=== PATIENT | female | born 1950 | race Caucasian/White ===

== ENCOUNTER 2016-06-28 09:22 | Inpatient (IN) | payer MEDICARE ==
[~2016-06-28] VITALS: Ht 157.5 cm; Wt 109.3 kg
[~2016-06-28 09:22] MED LIST: ACYC800T PO; ALPR.5T PO; ALPR0.2550 PO; ALPR0.5T7 PO; ALPR0.5T72 PO; AMT50T; APIX5TAB PO; ARFO15VI3 IH; ARFO15VI3 NEB; ASP81TEC PO; ASPI-875 PO; ATOR40TA PO; ATR20T PO; AZIT-21 PO; AZIT500T PO; BUDE0.5A NEB; CETI10TA17 PO; CLIMARA PATCH; CODE118S2 PO; COLE1TAB PO; COLE625T9 PO; COLESTIPOL; CPR500T PO; CYCL10TA9 PO; DILT120C54 PO; DILT180C54 PO; DILT180C55 PO; DILT240C PO; DILT240C47 PO; DILT240C54 PO; DILT240C9 PO; DILT240T6 PO; DRON400T2 PO; ESOM20SU PO; ESTR-17 PO; ESTR1PAT63 TD; ESTR1TAB22 PO; FEXO180T PO; FEXO1TAB49; FEXO30TA17 PO; FLC100T1; FLEC100T PO; FLEC50TA PO; FLUC150T2 PO; FLUT16SP22 NS; FLUT16SP22 NSEACH; FURO-125 PO; FURO20TA4 PO; GABA300C PO; GABA400T PO; GABA600T2 PO; GBPN100C PO; GBPN600T PO; HCT25T; HORMONE PILL PO; HYDR-2941 PO; HYDR-34 PO; HYDR-3714 PO; HYDR-3816 PO; HYDR1CAP2 PO; HYDR1TAB71 PO; HYDR28.341 TOP; HYDROCODONE; INSU100V5 SQ; IPRA3AMP NEB; IPRA4AER INH; LASIX; LEVA1.2516 INH; LEVO500T2 PO; LEVO500T80 PO; LEVO5TAB2 PO; LEVO750T6 PO; LEVO75TA6 PO; LEVO88TA54 PO; LIRA0.6P SQ; LISI1TAB PO; LISI1TAB10 PO; LORA0.5T PO; LORA10TA7 PO; LRZ.5TRX; LVT.025T PO; METFOR850T PO; METO-274 PO; METO100T5 PO; METO50TA7 PO; MNTL10T; MONT10TA24 PO; MTP25TSR PO; MUPI15CR11 TP; NAPR1TAB21 PO; NEBI5TAB8 PO; NF-ESOM40C; NF-METHYLP PO; NYST1000 MM; OMEP20CA12 PO; OMEP20TA2 PO; ONDA8TAB6 PO; ONDN4T PO; OXYC-12 PO; PANT40TA2 PO; PANT40TA3 PO; PNT40TEC PO; POTA10CA43 PO; POTA10TA10 PO; POTASSIUM PO; PRCD5U PO; PRD10T PO; PRD50T PO; PREG50C PO; PRM25T PO; PROM25TA14 PO; RABE20TA PO; ROPI0.5T2 PO; ROPI1TAB PO; ROPI1TAB2 PO; ROPI1TAB40 PO; ROPI2TAB4 PO; RT-ALBUINH INH; SAXA5TAB PO; SUCR1TAB PO; TIOT18CA2 IH; TRZ100T PO; VENL-48 PO; VENL150C PO; VENL150T4 PO; VNL37.5T PO; [UNRECOGNIZED DRUG - CODE] PO; [UNRECOGNIZED DRUG - CODE] PO
--- OUTSIDE RECORDS SUMMARY | 2016-06-28 09:28 | XMS REPORT | Continuity of Care Document ---
Author Author [facility] Organization [facility] Address Unknown Phone Unavailable Care Team Providers Care Suggestion Clerk Name Role Phone Ashley Motta PCP [phone] Source Comments Some departments are not documenting in the electronic medical record. If you do not see the information that you expected, contact Release of Information in the Health Information Management department at [phone] for further assistance in locating additional records.[facility] Active Allergies and Adverse Reactions Allergen Noted Date Severity Reactions Comments Codeine 02/16/2016 Low SEE COMMENTS Loopy, sleepy Pcn 02/16/2016 High ANAPHYLAXIS Sulfa (Sulfonamide 02/16/2016 Medium HIVES Antibiotics) Tetanus And Diphtheria 02/16/2016 Medium FEVER, SEE COMMENTS, Body stiffness Toxoids, Adsorbed, Adult EDEMA Current Medications Prescription Sig. Disp. Refills Start End Date Status Date ALPRAZolam (XANAX) 0.5 mg Take 0.5 mg by mouth Active tablet three times daily as needed for Anxiety. apixaban (ELIQUIS) 5 mg Take 5 mg by mouth twice Active tablet daily. aspirin EC 81 mg tablet Take 81 mg by mouth at Active bedtime daily. Take with food. budesonide respule Inhale 0.5 mg solution by Active (PULMICORT) 0.5 mg/2 mL nebulizer as directed as nebulizer solution Needed. colesevelam(+) (WELCHOL) Take 1,875 mg by mouth Active 625 mg tablet twice daily with meals. colestipol (COLESTID) 1 Take 1 g by mouth twice Active gram tablet daily. cyclobenzaprine Take 10 mg by mouth twice Active (FLEXERIL) 10 mg tablet daily as needed. fexofenadine(+) (LEEANN) Take 180 mg by mouth Active 180 mg tablet daily. furosemide (LASIX) 20 mg Take 40 mg by mouth twice Active tablet daily. Take 2 tabs gabapentin enacarbil 600 Take 900 mg by mouth Active mg TbER three times daily. Take 1 and 1/2 tabs HYDROCORTISONE TP Apply topically to Active affected area three times daily. levothyroxine (SYNTHROID) Take 88 mcg by mouth Active 88 mcg tablet daily 30 minutes before breakfast. montelukast (SINGULAIR) Take 10 mg by mouth at Active 10 mg tablet bedtime daily. nystatin (MYCOSTATIN) Apply topically to Active 100,000 unit/g topical affected area as Needed. cream pantoprazole DR Take 40 mg by mouth Active (PROTONIX) 40 mg tablet daily. From 04/05/16 - 05/23/16 take twice daily. Resume daily dose 05/24/16 potassium chloride Take 10 mEq by mouth Active (K-DUR) 10 mEq tablet daily. Take with a meal and a full glass of water. rOPINIRole (REQUIP) 1 mg Take 1 mg by mouth at Active tablet bedtime daily. albuterol (PROAIR HFA) 90 Inhale 2 Puffs by mouth Active mcg/actuation inhaler into the lungs every 4 hours as needed for Wheezing or Shortness of Breath. Shake well before use. albuterol 0.5% Inhale 2.5 mg solution by Active (PROVENTIL; VENTOLIN) 2.5 nebulizer as directed mg/0.5 mL nebulizer twice daily as needed for solution Shortness of Breath or Wheezing. DULOXETINE HCL (CYMBALTA Take 1 Cap by mouth Active PO) daily. insulin detemir(+) Inject 25 Units under the Active (LEVEMIR) 100 unit/mL skin twice daily. 25 soln units in the am and 20units in the pm Indications: 20 units at bedtime HYDROcodone/acetaminophen Take 1 Tab by mouth every Active (+) (NORCO) 10/325 mg 6 hours as needed for tablet Pain fluticasone (FLONASE) 50 Apply 1 [place] to each Active mcg/actuation nasal spray nostril as directed daily. Shake bottle gently before using. metoprolol XL (TOPROL XL) Take 1 Tab by mouth 90 Tab 3 04/23/20 Active 100 mg extended release daily. 16 tablet diltiazem CD (CARDIZEM Take 1 Cap by mouth 90 Cap 3 04/23/20 Active CD) 240 mg capsule daily. 16 sucralfate (CARAFATE) 1 Take 1 Tab by mouth every 360 Tab 3 05/05/20 Active gram tablet 6 hours. Take on an empty 16 stomach. flecainide (TAMBOCOR) 100 Take 1 Tab by mouth twice 60 Tab 11 Active mg tablet daily. 16 digoxin (LANOXIN) 125 mcg Take 1 Tab by mouth 30 Tab 11 05/11/20 Active tablet daily. 16 Active Problems Problem Noted Date S/P radiofrequency ablation operation for arrhythmia 05/05/2016 Atrial fibrillation (HCC) 03/17/2016 Overview: 01/17/16 - Echo: EF 50%. LV normal in size, endocardium was not well visualized in all segments. LA is normal in size, no clot or thrombus were seen. Mild MR, Mild TR. Pulmonary HTN with PAP 45mmHg. 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 Most Recent Encounters Date Type Specialty Providers Description 06/27/2016 Telephone Cardiology Sushma Treadwell RN Other - cta requested 2016 Telephone Cardiology Aleja Jackson RN Other - post ablation cta ordered 2016 Orders Only Cardiology Aleja Jackson RN Atrial fibrillation , unspecified type (Primary Dx); S/P radiofrequency ablation operation for arrhythmia 06/21/2016 [facility] Cardiology Manish Lr MD Arrived Encounter 05/17/2016 [facility] Cardiology Manish Lr MD Encounter 05/11/2016 Office Visit Cardiology Zoë Bryan MD Atrial fibrillation - afib/chest tightness/jaw pain/arm pain/heartburn 05/09/2016 Telephone Cardiology Gamal Cervantes RN Irregular Heart Beat - numbness, slurred speech, gait difficult over the weekend; Tingling - & numbness 05/06/2016 Hospital Cardiology Manish Lr MD Encounter 05/06/2016 Orders Only Cardiology Caitlyn Doherty Ashley S/P radiofrequency ablation operation for arrhythmia (Primary Dx) 05/05/2016 Hospital Radiology Manish Lr MD Encounter 05/05/2016 Office Visit Cardiology Manish Lr MD Cardiac Eval - post cryo ablation follow up; paroxysmal AFIB 05/05/2016 Hospital Cardiology Manish Lr MD Encounter 05/05/2016 Ancillary Cardiology Manish Lr MD Gastroesophageal reflux Orders disease without esophagitis (Primary Dx) 05/05/2016 Screening Form 05/05/2016 Documentation Cardiology Romy Ramírez - LINQ 05/05/2016 Ancillary Cardiology Manish Lr MD Paroxysmal atrial Orders fibrillation (HCC) (Primary Dx) 04/29/2016 Orders Only Cardiology Marii Mac 04/29/2016 Telephone Cardiology Sabi Yost RN Follow-up Phone Call - 1 week post cryoablation AF 04/22/2016 Hospital Cardiology Manish Lr MD No Show Encounter 04/22/2016 Surgery Cardiology Manish Lr MD Left Atrial Fibrillation Cryo Ablation 04/21/2016 Telephone Cardiology Yu Boyer RN Provider Discussion About Patient 04/21/2016 Pre-Admit Cardiology Kriss Emanuel, [employer]ER [employer] Orders Only 04/20/2016 Documentation Cardiology Sabi Yost RN Lab Results - updated CBC, WBC WNL 04/20/2016 Telephone Cardiology Vy Ribeiro RN Follow Up - Needs CBC re-draw 04/18/2016 Telephone Cardiology Gauri Wynne LPN Medication Question - Lovenox inj 04/12/2016 PAC Office Anesthesiology Manish Lr MD Atrial fibrillation, Visit unspecified type (HCC); Pre-procedural cardiovascular examination 04/12/2016 Hospital Radiology Manish Lr MD Encounter 04/12/2016 Hospital Cardiology Manish Lr MD Encounter 04/12/2016 Office Visit Cardiology Manish Lr MD Cardiac Eval - H&P Cryo Ablation 04/12/2016 Hospital Cardiology Manish Lr MD Encounter 04/12/2016 Anesthesia Cardiology Dorcas Vazquez, [employer] Event 04/04/2016 [facility] Cardiology Sushma Treadwell RN Pre-Admission Checklist 03/31/2016 Orders Only Cardiology Marii Mac Atrial fibrillation, unspecified type (HCC) (Primary Dx) Social History Tobacco Use Types Packs/Day Years Used Date Never Smoker Smokeless Tobacco: Never Used Alcohol Use Drinks/Week oz/Week Comments No Last Filed Vital Signs Vital Sign Reading Time Taken Blood Pressure 120/74 05/11/2016 10:59 AM CREDIT RESOLUTION REPRESENTATIVE Pulse 98 05/11/2016 10:57 AM CREDIT RESOLUTION REPRESENTATIVE Temperature 36.4 C (97.5 F) 04/23/2016 3:13 AM CREDIT RESOLUTION REPRESENTATIVE Respiratory Rate - - Height 1.575 m (5' 2") 05/11/2016 10:57 AM CREDIT RESOLUTION REPRESENTATIVE Weight 103.874 kg (229 lb) 05/11/2016 10:57 AM CREDIT RESOLUTION REPRESENTATIVE Body Mass Index 41.87 05/11/2016 10:57 AM CREDIT RESOLUTION REPRESENTATIVE Oxygen Saturation 98% 05/05/2016 10:14 AM CREDIT RESOLUTION REPRESENTATIVE Plan of Care Date Type Specialty Providers Description 07/19/2016 Appointment Cardiology Zoë Bryan MD [address] [place] [address] [phone] (Fax) E Manish noble MD [address] [place] [address] [phone] (Fax) Health Maintenance Due Date Last Done Comments Hepatitis C Screening 1950 Physical (Comprehensive) 1957 Exam Pertussis Vaccine 1961 Tetanus Vaccine 1967 Dilated Eye Exam 1968 Foot Exam 1968 Hba1c 1968 Microalbumin 1968 Breast Cancer Screening 1990 Colorectal Cancer 2000 Screening Shingles Vaccine 2010 Osteoporosis Screening 2015 Prevnar/Pneumovax (#1) 2015 Influenza Vaccine 01/21/2016 Procedures from Last 3 Months Procedure Name Priority Date/Time Associated Diagnosis Comments ECG-SCAN 04/29/2016 Results for this 7:56 AM CREDIT RESOLUTION REPRESENTATIVE procedure are in the results section. ECG-SCAN 04/28/2016 Results for this 1:49 PM CREDIT RESOLUTION REPRESENTATIVE procedure are in the results section. TELEMETRY STRIPS-SCAN 04/26/2016 Results for this 7:48 AM CREDIT RESOLUTION REPRESENTATIVE procedure are in the results section. PROCEDURES-SCAN 04/24/2016 Results for this 7:01 PM CREDIT RESOLUTION REPRESENTATIVE procedure are in the results section. Results from Last 3 Months DEVICE EVALUATION - REMOTE ILR (06/21/2016 3:01 PM)Only the most recent of 3 results within the time period is included. Component Value Range Generator Implnat Date 04/08/15 Generator Model # Reveal Linq [id number] Device Implanted By Dr. Dyer Generator Serial # [id number] EP Device Followed by MPE Name ILR Symptom Duration 4 7.5 mins each ILR Tachy Rate 167 ILR Tachy Duration 16 ILR Pause Duration 3 ILR Chris Rate 30 ILR Chris Duration 8 ILR AT Events Since Last 0 Interrogation ILR AT Lifetime Events as 0 of Generator Mailroom Associate Medtronic Wireless Generator Yes Device Type ILR EP Device Followed By Other ILR AF Rate AF only ILR AF Duration episodes > 10 mins Device [place] Carelink Express Transmitter Compatible ILR Current Monitoring 06/21/2016-07/21/2016 Period ILR Date of Last Daily 06/20/2016 Connection ILR Lifetime Events as of 06/20/2016 Datetion ILR Symptom Events Since 0 Last Interrogation ILR Symptom Lifetime 8 Events as of ILR Tachy Events Since 0 Last Interrogation ILR Tachy Lifetime Events 7 as of ILR Pause Events Since 0 Last Interrogation ILR Pause Lifetime Events 30 as of ILR Chris Events Since 0 Last Interrogation ILR Chris Lifetime Events 0 as of ILR AF Events Since Last 0 Interrogation ILR AF Lifetime Events as 270 of ILR Percent Time in AT/AF 0 Events Since Last Interrogation ILR Percent Time in AT/AF 5.5% Lifetime of Events as of ILR Battery Status OK ILR Presenting ECG Strip 06/20/2016 @ 22:59 SR in the 70's Narrative [06/21/2016 3:03:05 PM - ED THOMAS] Reviewed summary report.No events received. Will continue to monitor.Routed to Dr. Lr for review and co-sign. CT CHEST WO/W CONTRAST (05/05/2016 2:12 PM) Impressions 1.No evidence for esophageal or left atrial injury. 2.Mild cardiomegaly with at least mild coronary artery calcification. 3.Scattered tiny pulmonary nodules which most likely represent small scars or granulomas. If there are no significant risk factors for pulmonary malignancy , no follow-up is required. 4.Mild air trapping suggesting small airways disease. 5.Moderate fatty infiltration of the liver. Approved by Shelby Jackman M.D. on 05/05/2016 3:53 PM By my electronic signature, I attest that I have personally reviewed the images for this examination and formulated the interpretations and opinions expressed in this report Finalized by Jamie Crespo M.D. on 05/05/2016 3:58 PM. Dictated by Shelby Jackman M.D. on 05/05/2016 3:[address] CHEST Clinical Indication:Female, 65 years old. Gastroesophageal reflux disease without esophagitis. Status post left atrial ablation. Technique: Multiple contiguous axial CT images were obtained through the chest following the administration of IV contrast.The patient drank a 7.5 mL dilute Gastrografin during the study.Post processing coronal and sagittal reconstruction images were made from the axial images. IV contrast: Isovue-370 Comparison: None FINDINGS: Lower Neck: Unremarkable Axilla, Mediastinum and Marco: The esophagus is well distended with oral contrast. No evidence for contrast extravasation or mediastinal fluid collection. No thoracic lymphadenopathy. Heart and Great Vessels: Mild cardiomegaly without a pericardial effusion. The posterior wall of the left atrium is normal in contour without evidence of extravasation of IV contrast. Mild coronary artery calcifications. Normal caliber thoracic aorta. Airway, Lungs and Pleura: Mild dependent atelectasis or fibrosis. A small right lower lobe pulmonary nodule measures 0.4 cm on image 3/30. Other tiny nodules are seen bilaterally such as in the right lung on image 21 and the left lung on images 18, 21, 28 and 30 of series 3, for example. There is poor depth of inspiration with bilateral areas of atelectasis and small areas of air trapping. Upper Abdomen: Moderate hepatic steatosis. Prior cholecystectomy. Chest Wall and Osseous Structures: Unremarkable. Procedure Note Interface, Radiant Results - Divine May 05, 2016 4:01 PM CREDIT RESOLUTION REPRESENTATIVE CT CHEST Clinical Indication: Female, 65 years old. Gastroesophageal reflux disease without esophagitis. Status post left atrial ablation. Technique: Multiple contiguous axial CT images were obtained through the chest following the administration of IV contrast.The patient drank a 7.5 mL dilute Gastrografin during the study.Post processing coronal and sagittal reconstruction images were made from the axial images. IV contrast: Isovue-370 Comparison: None FINDINGS: Lower Neck: Unremarkable Axilla, Mediastinum and Marco: The esophagus is well distended with oral contrast. No evidence for contrast extravasation or mediastinal fluid collection. No thoracic lymphadenopathy. Heart and Great Vessels: Mild cardiomegaly without a pericardial effusion. The posterior wall of the left atrium is normal in contour without evidence of extravasation of IV contrast. Mild coronary artery calcifications. Normal caliber thoracic aorta. Airway, Lungs and Pleura: Mild dependent atelectasis or fibrosis. A small right lower lobe pulmonary nodule measures 0.4 cm on image 3/30. Other tiny nodules are seen bilaterally such as in the right lung on image 21 and the left lung on images 18, 21, 28 and 30 of series 3, for example. There is poor depth of inspiration with bilateral areas of atelectasis and small areas of air trapping. Upper Abdomen: Moderate hepatic steatosis. Prior cholecystectomy. Chest Wall and Osseous Structures: Unremarkable. IMPRESSION 1. No evidence for esophageal or left atrial injury. 2. Mild cardiomegaly with at least mild coronary artery calcification. 3. Scattered tiny pulmonary nodules which most likely represent small scars or granulomas. If there are no significant risk factors for pulmonary malignancy , no follow-up is required. 4. Mild air trapping suggesting small airways disease. 5. Moderate fatty infiltration of the liver. Approved by Shelby Jackman M.D. on 05/05/2016 3:53 PM By my electronic signature, I attest that I have personally reviewed the images for this examination and formulated the interpretations and opinions expressed in this report Finalized by Jamie Crespo M.D. on 05/05/2016 3:58 PM. Dictated by Shelby Jackman M.D. on 05/05/2016 3:13 PM. DEVICE EVALUATION - ILR (05/05/2016 11:10 AM)Only the most recent of 2 results within the time period is included. Component Value Range Generator Implnat Date 04/08/15 Generator Model # Reveal Linq [id number] Device Implanted By Dr. Dyer Generator Serial # [id number] EP Device Followed by MPE Name ILR Symptom Duration 4 7.5 mins each ILR Tachy Rate 167 ILR Tachy Duration 16 ILR Pause Duration 3 ILR Chris Rate 30 ILR Chris Duration 8 ILR AT Events Since Last n/a Interrogation ILR AT Lifetime Events as 0 of Generator Mailroom Associate Medtronic Wireless Generator Yes Device Type ILR EP Device Followed By Other ILR AF Rate AF only ILR AF Duration episodes > 10 mins Device [place] Carelink Express Transmitter Compatible ILR Lifetime Events as of 05/05/16 Datetion ILR Symptom Lifetime 0 Events as of ILR Tachy Lifetime Events 0 as of ILR Pause Lifetime Events 1 (during ablation as of ILR Chris Lifetime Events 0 as of ILR AF Lifetime Events as 1 of ILR Percent Time in AT/AF 0.2% Lifetime of Events as of Narrative Medtronic Linq ILR interrogation.Pt has been following with Dr. Dyer in [facility], [place].Pt was never given a symptom activator.We gave her one today and Dr. Lr has requested remote transfer to us. This was done on website by Romy álvarez. No events since AF ablation on 04/22/16. Presenting rhythm today NSR 82bpm. Report to Dr. Lr in clinic. [05/05/2016 5:40:11 PM - JESSE PATEL] ECG-SCAN (04/29/2016 7:56 AM) Narrative Ordered by an unspecified provider. ECG-SCAN (04/28/2016 1:49 PM) Narrative Ordered by an unspecified provider. TELEMETRY STRIPS-SCAN (04/26/2016 7:48 AM) Narrative Ordered by an unspecified provider. PROCEDURES-SCAN (04/24/2016 7:01 PM) Narrative Ordered by an unspecified provider. EP STUDY (04/23/2016 12:30 PM) Impressions : -NSR existed at baseline and she went into an Atypical AFL and some degeneration to AFIB.This terminated with as the 3rd PV was isolated-->the RIPV -Status post Cryo-Balloon Ablation of AFIB -Paroxysmal Atrial fibrillation status post pulmonary vein antral isolation. -Successful ablation of LA to isolate pulmonary veins. Normal AV node function. Normal His-Purkinje system function. -Procedure done under general anesthesia. PLAN: -Patient will be monitored overnight in the hospital with access sites checked in the morning. -Will restart home antiarrhythmic drug for the next two to three months. -Pt. 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 HOWEVER, she has had periods of sinus pauses/ASYSTOLE and during the procedure with no provocation, except anesthesia, she had prolonged periods of asystole. THEREFORE, At VT, all doses will be decreased by 1/2 HYDROGEN POWER PLANT ENGINEER dosing: -Flecainide 50 mg BID (but can go back to 100 mg BID if needed in future, since level was OK at that dose). -Toprol XL 100 mg Daily -Diltiazem 240 mg Daily NOTE--if she has recurrent AFIB with RVR then would increase Diltiazem back to 480 mg and no other changes. If she still has AFIB with RVR after all AFIB Ablations, etc. Then may need PPM but if AFIB after 3 mos is Cured, then anticipate being able to stop or dramatically lower Rate controlling meds, thus avoiding a PPM. Narrative AFIB ABLATION WITH CRYO ENERGY Patient Name: Monae Boyce DATE OF PROCEDURE: 04/24/2016 PROCEDURE: Intracardiac Ablation of Atrial Fibrillation through pulmonary vein antral isolation in the left atrium with a [employer] [place] Cryo-Balloon Left atrial antral ablation for atrial fibrillation General Anesthesia EP study with CS catheter placement His bundle assessment Right and left heart catheterization Intracardiac echocardiography Single transseptal puncture with LA entry Pulmonary vein angiography Three-dimensional intracardiac electroanatomic mapping using the Kranem NAvX System. Intracardiac left atrial ablation of atrial fibrillation for pulmonary vein antral isolation Complex fractionated atrial electrogram ablation IV drug Administration - Isuprel BRAKE LINING FINISHER: Manish Lr MD FELLOW: none INDICATION FOR PROCEDURE: Symptomatic paroxysmal atrial fibrillation PRESENTING RHYTHM: NORMAL SINUS RHYTHMbut Spontaneously, Without significant stimulus i.e. catheter induction, the patient went into an atypical left-sided AFL/AFIB. CONSENT: The risks, benefits, indications and alternatives to the procedure were explained in detail with the patient and discussed at length prior to the procedure. The patient expressed understanding of the risks and consented to the procedure. All questions asked were answered and all permits were signed. The patient was transported to the Electrophysiology Laboratory in a non-sedated state and was placed supine on the fluoroscopy table. GENERAL ANESTHESIA: The patient underwent general anesthesia as administered by a Anesthesia servce. He was on mechanical ventilation which was managed by anesthesia team who was present through out the procedure. Continuous blood pressure, heart rate and O2 saturation monitoring with supplemental oxygen as needed was utilized throughout the procedure. LOCAL ANESTHESIA: Marcaine 0.25% was injected into subcutaneous tissue for local anesthesia. ANTICOAGULATION: Heparin bolus was given following transseptal puncture and a drip was started to maintain ACT > 400 throughout the procedure. Protamine was given at the completion of the procedure for reversal of heparin anticoagulation. ANATOMY: The left atrial anatomy correlated well with the cardiac CT. CATHETERS USED: - An 11Fr. SL1 sheath was exchanged for a short 8 Fr. Sheath in the RFV and then for the Flex Cryo-balloon deflectable sheath - A 20 pole Variable Lasso was used and inserted thru the Flex Cryo-balloon Sheath in the RFV in exchanged for the Cryo-balloon catheter at the end of the procedure to confirm PV isolation. - The Cryo-Balloon catheter was advanced into the LA for ablation thru the deflectable sheath in the RFV.20 mm Achieve lasso Catheter was introduced through the Flex sheath - Decapolar deflectable EP catheter inserted via a 6Fr Tunisian sheath in the left femoral vein, advanced to the coronary sinus. - Accunav or SJM ICE catheter placed via access with an 11 Tunisian sheath in the left femoral vein and advanced into right atrium to assess cardiac anatomy. - A 6 Fr. Fixed QuadrapolarCatheter was advanced thru a short sheath in the LFV and used for Temporary RVA pacing as needed and then advanced to the Right SCV to pace stimulate the phrenic nerve with all Rt. Sided Ablation applications. -NOTE--Difficult CS Access. ACCESS: The left and right groins and right neck were prepped and draped in a sterile fashion. 0.25% Marcaine was injected into the subcutaneous tissue overlying the right and left femoral veins, and right internal jugular vein. The veins were accessed using the modified Seldinger technique with placement of sheaths and catheters as mentioned above. -ASYSTOLE occurred before procedure was even underway with only one catheter in the RA not near Sinus node.The Catheter, was the CS catheter. The catheter was quickly advanced in the RV to pace. Asystole was transient. But it recurred. Therefore a quadripolar catheter was advanced into the RV apex. Pacing threshold was tablets. Backup pacing at 40 ppm was [address] in [address] with a temporary pacemaker box in the event that she had continued episodes of asystole. INTRACARDIAC ECHO: A 9 Tunisian ICEcatheter was advanced via left femoral vein to mid right atrium to assess cardiac anatomy and to guide transseptal puncture. There was no pericardial effusion or thrombus. The left atrium was mildly enlarged. Intracardiac echo was used to assist and guide transseptal puncture. SINGLE TRANSSEPTAL PUNCTURE WITH LA ENTRY: A short 8 [place]ian sheath in the right femoral vein was exchanged for a long SL1 sheath. A transseptal needle was used for transseptal puncture. The transseptal puncture was done using a SL1 sheath in the inferoanterior aspect of the interatrial septum. The septum was lipomatous and seeing the fossa was not as clear as usual.Therefore ~ 3 passess with the needle were done before angled to 0600, good tenting, etc. Was noted and then the needle easily penetrated the fossa to the LA. Transseptal puncture was performed in the low septum successfully under guidance of fluoroscopy and intracardiac echo. Contrast was injected immediately after puncture to confirm appropriate LA location before advancing the sheath. Heparin IV bolus was started immediately to keep ACT 400 or greater throughout left atrial ablation. (Intra-atrial pressure was 24/9 mmHg) THREE-DIMENSIONAL INTRACARDIAC ELECTROANATOMIC MAPPING: Using the 20 pole Achieve Lasso catheter 3-D electroanatomic mapping of the left atrium and pulmonary veins was created. Post RFA the Variable Lasso catheter was used. The left atrial anatomy correlated well with the cardiac CT. -ENTRAINMENT MAPPING when the pt was in the atypical AFL/AFIB was done from the LLRA and PCS and entrainment mapping supported a LEFT-SIDED circuit. CRYOABLATION: The 4 veins were sequentially entered using the Achieve lasso catheter, and the balloon was advanced into each of the veins. Using the 3-D electro-anatomic map and the Doppler window on the ICE catheter, an appropriate occlusion of the vein was judged.The balloon was dilated and an occlusive venogram of each vein was done to confirm that there was no leak.The balloon was adjusted to minimize any leak around the balloon. An initial freeze for was done, and at lease one subsequent freeze was done on each vein.The goal freezing temperature would be less than 40 degrees. The transseptal puncture was done using a SL1 sheath in the inferoanterior aspect of the interatrial septum. The septum was lipomatous and seeing the fossa was not as clear as usual.Therefore ~ 3 passess with the needle were done before angled to 0600, good tenting, etc. Was noted and then the needle easily penetrated the fossa to the LA. The sheath was then exchanged over to the 15-Tunisian FlexCath sheath.The groin access site was dilated using the 14-Tunisian dilator before introducing the sheath as well.With the long wire parked in the left upper vein, the FlexCath sheath was introduced into the left atrium. Using the Achieve Lasso, we demarcated the different Pulmonary Veins under NavX 3D guidance mapping and merged to the CT. She had a 2 SEPARATE LEFT PVs--a LSPV and A LIPV AND 2 SEPARATE RIGHT PVs--a RSPV AND RIPV. NSR existed at baseline and she went into an Atypical AFL and some degeneration to AFIB.This terminated with as the 3rd PV was isolated-->the RIPV The cryo balloon was sequentially applied at the pulmonary vein ostia. For each PV Cryo-balloon application, the position of the balloon was also confirmed with the ICE catheter.The ICE catheter was panned across the vein to make sure there was no leak across through the sides of the balloon.Also, puffs of contrast/venogram of the vein was done to demonstrate PV os occlusion. If there was a leak, or there was a suspicion of inadequate occlusion, adjustment of the balloon was done to cover the leaked segment and repeat treatment was done.This strategy was followed at all the Pulmonary Veins. We started with the Left PVs, followed by the Right inferior PV and finally the Right Superior PV. After positioning the Achieve Lasso inside the vein, the balloon was pushed onto the antrum and was inflated.Proper occlusion of the vein was done and an angiogram using injection of dye from the distal port was done to verify appropriate occlusion of the vein.Once it was confirmed that the vein was adequately occluded, we sometimes also did pull back the balloon just a bit to make sure we were not too much inside the vein and was appropriately at the antrum. Treatment in the form of cryoablation using liquid nitrogen with freezing of the balloon at a target of -40 to 55 degrees Celsius was done. Applications are described below. During Cryo energy delivery to the Right-sided veins the phrenic nerve was stimulated by pacing and diaphragmatic stimulation was monitored thru the entire application to ensure no diaphragmatic paralysis occurred, i.e. Phrenic nerve injury. CRYO Applications: [id number] Regarding the LSPV, there were potentials initially thought to possibly be far-field from the LENCHO.So we then went to the LIPV and after cryo applications, we noted a far-filled "A" and "V" followed by a sharp signal.It being so "late" it seemed unlikely to be a PV potential. We then isolated the Right-sided veins and went back to the LIPV. Additional Cryo-applications to the LIPV, however, resulted in loss of that late potential. We then turned back to the LSPV and with additional applications again potentials were changed only leaving far-field signals. After the isolation of all the 4 PVs patient was started on Isuprel for 10 minutes at 20mcg/kg/min with no spontaneous ectopic activity. Burst pacing was done at 350 and down to 250 msec without any inducible arrhythmias, flutters, or atrial fibrillation. All 4 veins were active. No inducible arrhythmias with aggressive stimulation and isuprel. ADDITIONAL COMMENTS: --Kranem Navx was used as the mapping system for the procedure. --Transseptal puncture was performed with the access needle pointed to 0600 o'clock--see above. --Dissociated Firing of the PVs:Did not occur. --Vagal Effect:did not occur during RFA. --A CTI ablation for AFL:was NOT performed. --The SVC:Was NOT assessed. --Atrial Scarring: was not present. COMPREHENSIVE EP STUDY WITH CORONARY SINUS CATHETER FINDINGS and PROGRAMMED ELECTRICAL STIMULATION WITH AND WITHOUT ISUPREL: NSR existed at baseline and she went into an Atypical AFL and some degeneration to AFIB.This terminated with as the 3rd PV was isolated-->the RIPV Initial: SR --chris and then Atypical AFL/AFIB with DF=054 ms on average as was VAVB.When in NSR the WA 150 msec,QRS 112 msec, QT 376 msec. Final: SR 630 msec coming off isuprel 20 mcg, WA 147 msec,QRS 107 msec, QT 399 msec. AH 116msec and HV43 msec,at completion of procedure. INTRA ATRIAL AND INTRAVENTRICULAR PACING & ARRHYTHMIA INDUCTION: -We paced the RA/LA and RV for decremental conduction and programmed electrical stimulation with no inducible atrial fibrillation. -AV wenkeback 390ms -AV node function was normal -After the isolation of all the 4 PVs patient was started on Isuprel for 10 minutes at 20mcg/kg/min with no spontaneous ectopic activity. -Atrial burst pacing up to 250 msec from both the atria, did not induce any arrhythmias. POSTABLATION INTRACARDIAC ECHOCARDIOGRAPHY: The ICE catheter was placed at the tricuspid annulus. The cardiac anatomy was assessed. There was no evidence of pericardial effusion. The left ventricular ejection fraction was unchanged. No regional wall motion abnormalities were noted. ACUTE DRUG TESTING: Isuprel was started at 20 mcg/min for acute drug testing. After 10 minutes of infusion, and burst pacing up to 250 ms from CS as well as cj, no additional atrial arrhythmias were noted. The Isuprel was stopped and catheters were pulled back. POST ABLATION INTRACARDIAC ECHOCARDIOGRAPHY: The ICE catheter was placed at the tricuspid annulus. The cardiac anatomy was assessed. There was no evidence of pericardial effusion. The left ventricular ejection fraction was unchanged. No regional wall motion abnormalities were noted. COMPLICATIONS: The patient tolerated the procedure well. No adverse events were noted at the end of the study. The catheters were then removed and the long SL1 sheaths were exchanged for short sheaths. The patient was then given protamine to reverse anticoagulation and was transferred to the outpatient for plans to remove sheaths with manual pressure held until adequate hemostasis noted. IV lasix was given to prevent pulmonary congestion. ASSESSMENT/ POC GLUCOSE (04/23/2016 8:15 AM)Only the most recent of 19 results within the time period is included. Component Value Range Glucose, POC 253 (H) 70-100 MG/DL BASIC METABOLIC PANEL (04/23/2016 3:20 AM)Only the most recent of 2 results within the time period is included. Component Value Range Sodium 137 137-147 MMOL/L Potassium 4.9Comment: SLT HEMOLYSIS 3.5-5.1 MMOL/L Chloride 102 98-110 MMOL/L CO2 28 21-30 MMOL/L Anion Gap 7 3-12 Glucose 218 (H) 70-100 MG/DL Blood Urea Nitrogen 16 7-25 MG/DL Creatinine 0.61 0.4-1.00 MG/DL Calcium 8.7 8.5-10.6 MG/DL eGFR Non >60Comment: >60 mL/min The eGFR is not validated for use in drug dosing adjustments. Continue to use estimated creatinine clearance per dosing reference text. Please contact the Clinical Pharmacist for questions. eGFR >60Comment: >60 mL/min The eGFR is not validated for use in drug dosing adjustments. Continue to use estimated creatinine clearance per dosing reference text. Please contact the Clinical Pharmacist for questions. Specimen Blood CBC (04/23/2016 3:20 AM)Only the most recent of 4 results within the time period is included. Component Value Range White Blood Cells 14.8 (H) 4.5-11.0 K/UL RBC 3.95 (L) 4.0-5.0 M/UL Hemoglobin 10.2 (L) 12.0-15.0 GM/DL Hematocrit 32.4 (L) 36-45 % MCV 82.1 80-100 FL MCH 25.9 (L) 26-34 PG MCHC 31.6 (L) 32.0-36.0 G/DL RDW 16.0 (H) 11-15 % Platelet Count 296 150-400 K/UL MPV 9.0 7-11 FL Specimen Blood PROTIME INR (PT) (04/23/2016 3:20 AM) Component Value Range INR 1.0 0.8-1.2 Specimen Blood POC ACTIVATED CLOTTING TIME (04/22/2016 9:50 PM) Component Value Range Activated Clotting Time 162 s POC ACTIVATED CLOTTING TIME (04/22/2016 5:40 PM)Only the most recent of 10 results within the time period is included. Component Value Range Activated Clotting Time 358 s TRANSESOPHAGEAL ECHOCARDIOGRAM (04/22/2016 1:45 PM) Component Value Range BSA 2.12 m2 ECHO EF 55 % Narrative LV EF 55 % Lipomatous hypertrophy of the interatrial septum No thrombus present in the left atrium or its appendage Mild to moderate TV regurgitation. Plaque present in the transverse aorta and descending aorta. The plaque is small and layered. No prior study is available for comparison. Herrera Harrison MD, MSc UA REFLEX CULTURE LABEL (04/22/2016 1:10 PM) Component Value Range UA Reflex Culture LAB LABEL Specimen Urine URINALYSIS MICROSCOPIC REFLEX TO CULTURE (04/22/2016 1:10 PM) Component Value Range WBCs,UA 0-2 0-2 /HPF RBCs,UA 2-10 0-3 /HPF Comment,UA Urine submitted for reflex culture if criteria are met:WBC>10, positive nitrite and/or positive leukocyte esterase. If quantity is not sufficient, an addendum will follow. MucousUA TRACE Bacteria,UA FEW (A) NEG-NEG Uric Acid Crystals FEW Squamous Epithelial Cells 0-2 0-5 Specimen Urine URINALYSIS DIPSTICK REFLEX TO CULTURE (04/22/2016 1:10 PM) Component Value Range Color,UA YELLOW Turbidity,UA 2+ (A) CLEAR-CLEAR Specific [place]-Urine 1.026 1.003-1.035 pH,UA 5.0 5.0-8.0 Protein,UA 1+ (A) NEG-NEG Glucose,UA 3+ (A) NEG-NEG Ketones,UA TRACE (A) NEG-NEG Bilirubin,UA NEG NEG-NEG Blood,UA 1+ (A) NEG-NEG Urobilinogen,UA NORMAL NORM-NORMAL Nitrite,UA NEG NEG-NEG Leukocytes,UA NEG NEG-NEG Urine Ascorbic Acid, UA NEG NEG-NEG Specimen Urine TYPE & CROSSMATCH (04/22/2016 9:42 AM) Component Value Range Units Ordered 0 Crossmatch Expires 04/25/2016 Record Check FOUND ABO/RH(D) A POS Antibody Screen NEG Electronic Crossmatch YES Specimen Blood POC PT/INR (04/22/2016 9:40 AM) Component Value Range INR POC 1.0 0.8-1.2 TYPE & SCREEN (NOT CROSSMATCH ELIGIBLE) (04/12/2016 3:04 PM) Component Value Range ABO/RH(D) A POS Antibody Screen NEG Blood Component Type RED CELL GROUP Specimen Blood, venous - Blood MAGNESIUM (04/12/2016 3:04 PM) Component Value Range Magnesium 2.1 1.6-2.6 MG/DL Specimen Blood FLECAINIDE LEVEL (04/12/2016 3:04 PM) Component Value Range Flecainide 0.5Comment: Reference range: 0.2 to 1.0 Unit: mcg/mL ADDITIONAL INFORMATION This test was developed and its performance characteristics determined by [facility] in a manner consistent with CLIA requirements. This test has not been cleared or approved by the U.S. Food and Drug Administration. [employer], [address], [place] [address] CARDIAC STRUCTURE WO/W CONT (04/12/2016 1:28 PM) Impressions Cardiac CT: 1. Normal sized left atrium without left atrial appendage thrombus. 2. Normal caliber bilateral superior and inferior pulmonary veins. 3.Moderate lipomatous infiltration of the atrial septum. 4.Normal caliber aortic root and ascending aorta. 5.Mild to moderate mitral annular calcification. Limited CT chest: 1.Moderate to severe hepatic steatosis. 2.Bilateral tiny lower lobe pulmonary nodules which are most likely small granulomas or scars. Finalized by Marbin Law M.D. on 04/13/2016 4:51 PM. Dictated by Marbin Law M.D. on 04/13/2016 4:[address] of the heart with contrast for cardiac structure evaluation and pulmonary vein mapping and limited CT chest Clinical Indication: 65-year-old lady with atrial fibrillation undergoing evaluation for ablation therapy. Technique: Standard [address] of the heart was performed with precontrast scans for localization. Gated dynamic contrast-enhanced scans were performed during bolus contrast administration. Multiplanar reformations and 3 dimensional reformations were performed on a free standing workstation for evaluation of the left atrium and pulmonary veins. Referring physician: Dr. Isabela newsome Interpreting physician:Ani Previous examination:None Findings: 1. Cardiac morphology and structure with attention to the left atrium and pulmonary veins: Left atrium and left atrial appendage: The left atrium isnormal size. The left atrialvolume including the appendage is approximately 57 cc.The atrial septum appears intact. There is no thrombus within the left atrial appendage. Pulmonary veins: There are normal caliber bilateral superior and inferior pulmonary veins. Pulmonary vein ostia measurements: Right superior pulmonary vein: 1.9 x 1.6 cm, 2.50 sq cm area Right inferior pulmonary vein:1.7 x 1.5 cm, 1.91 sq cm area Left inferior pulmonary vein:1.6 x 1.1 cm, 1.46 sq cm area Left superior pulmonary vein:1.6 x 1.1 cm, 1.42 sq cm area General cardiac morphology: No pericardial effusion is identified. The pericardium appears normal in thickness. The aortic and mitral valves are unremarkable apart from mild to moderate annular calcification of the mitral valve..The left ventricular myocardium appears normal in thickness. There is moderate lipomatous infiltration of the atrial septum. Evaluation of the coronary arteries is limited at this examination, however, mild eccentric calcified plaque is noted involving the distal left main coronary artery, LAD and proximal circumflex artery.2. Aorta and pulmonary vessels: The visualized portions of the aorta and pulmonary arteries are unremarkable. The ascending aorta measures about 2.9 cm in diameter.The aortic root measures 3.[address] chest findings: The visualized mediastinum and pulmonary marco are unremarkable. The visualized portions of the lungs are clear apart from mild dependent atelectasis or scarring of the upper lobes.Linear scarring is also noted in the left lower lobe laterally. There are tiny nodular opacities in both lower lobes in the right laterally on image 9/13 and in the left laterally on image 9/16.These both measure about 3 to 4 mm in diameter.There is moderate hepatic steatosis with density measurements of -10 to 5 Hounsfield units. Procedure Note Interface, Radiant Results - MonApr 13, 2016 4:54 PM CREDIT RESOLUTION REPRESENTATIVE CT of the heart with contrast for cardiac structure evaluation and pulmonary vein mapping and limited CT chest Clinical Indication: 65-year-old lady with atrial fibrillation undergoing evaluation for ablation therapy. Technique: Standard [address] of the heart was performed with precontrast scans for localization. Gated dynamic contrast-enhanced scans were performed during bolus contrast administration. Multiplanar reformations and 3 dimensional reformations were performed on a free standing workstation for evaluation of the left atrium and pulmonary veins. Referring physician: Dr. Isabela newsome Interpreting physician:Ani Previous examination:None Findings: 1. Cardiac morphology and structure with attention to the left atrium and pulmonary veins: Left atrium and left atrial appendage: The left atrium is normal size. The left atrial volume including the appendage is approximately 57 cc. The atrial septum appears intact. There is no thrombus within the left atrial appendage. Pulmonary veins: There are normal caliber bilateral superior and inferior pulmonary veins. Pulmonary vein ostia measurements: Right superior pulmonary vein: 1.9 x 1.6 cm, 2.50 sq cm area Right inferior pulmonary vein: 1.7 x 1.5 cm, 1.91 sq cm area Left inferior pulmonary vein: 1.6 x 1.1 cm, 1.46 sq cm area Left superior pulmonary vein: 1.6 x 1.1 cm, 1.42 sq cm area General cardiac morphology: No pericardial effusion is identified. The pericardium appears normal in thickness. The aortic and mitral valves are unremarkable apart from mild to moderate annular calcification of the mitral valve.. The left ventricular myocardium appears normal in thickness. There is moderate lipomatous infiltration of the atrial septum. Evaluation of the coronary arteries is limited at this examination, however, mild eccentric calcified plaque is noted involving the distal left main coronary artery, LAD and proximal circumflex artery. 2. Aorta and pulmonary vessels: The visualized portions of the aorta and pulmonary arteries are unremarkable. The ascending aorta measures about 2.9 cm in diameter. The aortic root measures 3.[address] chest findings: The visualized mediastinum and pulmonary marco are unremarkable. The visualized portions of the lungs are clear apart from mild dependent atelectasis or scarring of the upper lobes. Linear scarring is also noted in the left lower lobe laterally. There are tiny nodular opacities in both lower lobes in the right laterally on image 9/13 and in the left laterally on image 9/16. These both measure about 3 to 4 mm in diameter. There is moderate hepatic steatosis with density measurements of -10 to 5 Hounsfield [address] Card[address]: 1. Normal sized left atrium without left atrial appendage thrombus. 2. Normal caliber bilateral superior and inferior pulmonary veins. 3. Moderate lipomatous infiltration of the atrial septum. 4. Normal caliber aortic root and ascending aorta. 5. Mild to moderate mitral annular calcification. Limited CT chest: 1. Moderate to severe hepatic steatosis. 2. Bilateral tiny lower lobe pulmonary nodules which are most likely small granulomas or scars. Finalized by Marbin Law M.D. on 04/13/2016 4:51 PM. Dictated by Marbin Law M.D. on 04/13/2016 4:[address] LMTD CHEST W CARDIAC (04/12/2016 1:28 PM) Impressions Cardiac CT: 1. Normal sized left atrium without left atrial appendage thrombus. 2. Normal caliber bilateral superior and inferior pulmonary veins. 3.Moderate lipomatous infiltration of the atrial septum. 4.Normal caliber aortic root and ascending aorta. 5.Mild to moderate mitral annular calcification. Limited CT chest: 1.Moderate to severe hepatic steatosis. 2.Bilateral tiny lower lobe pulmonary nodules which are most likely small granulomas or scars. Finalized by Marbin Law M.D. on 04/13/2016 4:51 PM. Dictated by Marbin Law M.D. on 04/13/2016 4:[address] of the heart with contrast for cardiac structure evaluation and pulmonary vein mapping and limited CT chest Clinical Indication: 65-year-old lady with atrial fibrillation undergoing evaluation for ablation therapy. Technique: Standard [address] of the heart was performed with precontrast scans for localization. Gated dynamic contrast-enhanced scans were performed during bolus contrast administration. Multiplanar reformations and 3 dimensional reformations were performed on a free standing workstation for evaluation of the left atrium and pulmonary veins. Referring physician: Dr. Isabela newsome Interpreting physician:Ani Previous examination:None Findings: 1. Cardiac morphology and structure with attention to the left atrium and pulmonary veins: Left atrium and left atrial appendage: The left atrium isnormal size. The left atrialvolume including the appendage is approximately 57 cc.The atrial septum appears intact. There is no thrombus within the left atrial appendage. Pulmonary veins: There are normal caliber bilateral superior and inferior pulmonary veins. Pulmonary vein ostia measurements: Right superior pulmonary vein: 1.9 x 1.6 cm, 2.50 sq cm area Right inferior pulmonary vein:1.7 x 1.5 cm, 1.91 sq cm area Left inferior pulmonary vein:1.6 x 1.1 cm, 1.46 sq cm area Left superior pulmonary vein:1.6 x 1.1 cm, 1.42 sq cm area General cardiac morphology: No pericardial effusion is identified. The pericardium appears normal in thickness. The aortic and mitral valves are unremarkable apart from mild to moderate annular calcification of the mitral valve..The left ventricular myocardium appears normal in thickness. There is moderate lipomatous infiltration of the atrial septum. Evaluation of the coronary arteries is limited at this examination, however, mild eccentric calcified plaque is noted involving the distal left main coronary artery, LAD and proximal circumflex artery.2. Aorta and pulmonary vessels: The visualized portions of the aorta and pulmonary arteries are unremarkable. The ascending aorta measures about 2.9 cm in diameter.The aortic root measures 3.[address] chest findings: The visualized mediastinum and pulmonary marco are unremarkable. The visualized portions of the lungs are clear apart from mild dependent atelectasis or scarring of the upper lobes.Linear scarring is also noted in the left lower lobe laterally. There are tiny nodular opacities in both lower lobes in the right laterally on image 9/13 and in the left laterally on image 9/16.These both measure about 3 to 4 mm in diameter.There is moderate hepatic steatosis with density measurements of -10 to 5 Hounsfield units. Procedure Note Interface, Radiant Results - MonApr 13, 2016 4:54 PM CREDIT RESOLUTION REPRESENTATIVE CT of the heart with contrast for cardiac structure evaluation and pulmonary vein mapping and limited CT chest Clinical Indication: 65-year-old lady with atrial fibrillation undergoing evaluation for ablation therapy. Technique: Standard [address] of the heart was performed with precontrast scans for localization. Gated dynamic contrast-enhanced scans were performed during bolus contrast administration. Multiplanar reformations and 3 dimensional reformations were performed on a free standing workstation for evaluation of the left atrium and pulmonary veins. Referring physician: Dr. Isabela newsome Interpreting physician:Ani Previous examination:None Findings: 1. Cardiac morphology and structure with attention to the left atrium and pulmonary veins: Left atrium and left atrial appendage: The left atrium is normal size. The left atrial volume including the appendage is approximately 57 cc. The atrial septum appears intact. There is no thrombus within the left atrial appendage. Pulmonary veins: There are normal caliber bilateral superior and inferior pulmonary veins. Pulmonary vein ostia measurements: Right superior pulmonary vein: 1.9 x 1.6 cm, 2.50 sq cm area Right inferior pulmonary vein: 1.7 x 1.5 cm, 1.91 sq cm area Left inferior pulmonary vein: 1.6 x 1.1 cm, 1.46 sq cm area Left superior pulmonary vein: 1.6 x 1.1 cm, 1.42 sq cm area General cardiac morphology: No pericardial effusion is identified. The pericardium appears normal in thickness. The aortic and mitral valves are unremarkable apart from mild to moderate annular calcification of the mitral valve.. The left ventricular myocardium appears normal in thickness. There is moderate lipomatous infiltration of the atrial septum. Evaluation of the coronary arteries is limited at this examination, however, mild eccentric calcified plaque is noted involving the distal left main coronary artery, LAD and proximal circumflex artery. 2. Aorta and pulmonary vessels: The visualized portions of the aorta and pulmonary arteries are unremarkable. The ascending aorta measures about 2.9 cm in diameter. The aortic root measures 3.[address] chest findings: The visualized mediastinum and pulmonary marco are unremarkable. The visualized portions of the lungs are clear apart from mild dependent atelectasis or scarring of the upper lobes. Linear scarring is also noted in the left lower lobe laterally. There are tiny nodular opacities in both lower lobes in the right laterally on image 9/13 and in the left laterally on image 9/16. These both measure about 3 to 4 mm in diameter. There is moderate hepatic steatosis with density measurements of -10 to 5 Hounsfield units. IM[address]: 1. Normal sized left atrium without left atrial appendage thrombus. 2. Normal caliber bilateral superior and inferior pulmonary veins. 3. Moderate lipomatous infiltration of the atrial septum. 4. Normal caliber aortic root and ascending aorta. 5. Mild to moderate mitral annular calcification. Limited CT chest: 1. Moderate to severe hepatic steatosis. 2. Bilateral tiny lower lobe pulmonary nodules which are most likely small granulomas or scars. Finalized by Marbin Law M.D. on 04/13/2016 4:51 PM. Dictated by Marbin Law M.D. on 04/13/2016 4:40 PM.
[2016-06-28] MEDS ORDERED: NS IV 1000 ML 1,000 ML IV ONE (09:36)
[2016-06-28] MEDS ORDERED: ONDANSETRON 4 MG/2 ML (SDV) Z0FRAN IVP ONE (09:45)
[2016-06-28 09:46] LABS: BASOPHILS % (AUTO) 0 % (0-10); EOSINOPHILS % (AUTO) 0 % (0-10); LYMPHOCYTES % (AUTO) 9 % (12-44); MEAN CORPUSCULAR HEMOGLOBIN 26 PG (25-34); MEAN CORPUSCULAR HGB CONC 31 G/DL (32-36); MEAN CORPUSCULAR VOLUME 82 FL (80-99); MEAN PLATELET VOLUME 10.4 FL (7.4-10.4); MONOCYTES # (AUTO) 0.9 X 10^3 (0.0-1.0); MONOCYTES % (AUTO) 8 % (0-12); NEUTROPHILS # (AUTO) 9.2 X 10^3 (1.8-7.8); NEUTROPHILS % (AUTO) 82 % (42-75); PLATELET COUNT 270 10^3/uL (130-400); RED BLOOD COUNT 4.26 10^6/uL (4.35-5.85); RED CELL DISTRIBUTION WIDTH 14.6 % (10.0-14.5); WHITE BLOOD COUNT 11.2 10^3/uL (4.3-11.0)
[2016-06-28 09:54] LABS: INR 1.3 (0.8-1.4); PROTHROMBIN TIME PATIENT 15.5 SEC (12.2-14.7)
[2016-06-28 10:03] LABS: ALANINE AMINOTRANSFERASE 19 U/L (0-55); ALBUMIN 3.7 G/DL (3.2-4.5); ANION GAP 12 MMOL/L (5-14); ASPARTATE AMINO TRANSFERASE 17 U/L (5-34); BILIRUBIN,TOTAL 0.6 MG/DL (0.1-1.0); BLOOD UREA NITROGEN 8 MG/DL (7-18); BUN/CREATININE RATIO 9; CALCIUM 8.8 MG/DL (8.5-10.1); CARBON DIOXIDE 27 MMOL/L (21-32); CHLORIDE 93 MMOL/L (98-107); CREATININE SERUM 0.91 MG/DL (0.60-1.30); GFR ESTIMATED > 60; GLUCOSE 384 MG/DL (70-105); MAGNESIUM 1.8 MG/DL (1.8-2.4); POTASSIUM 4.1 MMOL/L (3.6-5.0); SODIUM 132 MMOL/L (135-145); TOTAL PROTEIN 6.7 G/DL (6.4-8.2)
[2016-06-28 10:10] LABS: MYOGLOBIN SERUM 41.3 NG/ML (10.0-92.0)
[2016-06-28] MEDS ORDERED: ACETAMINOPHEN 500 MG TAB (TYLENOL) PO ONE (10:15)
[2016-06-28] MEDS ORDERED: fentaNYL INJECTION 100 MCG/2 ML AMP IVP ONE ×2 (10:15→12:30)
[2016-06-28] MEDS ORDERED: inSUlin (REGULAR) HUMAN 1 UNIT/0.01 ML (CHARGE PER UNIT) IV ONE (10:30)
--- NOTE | 2016-06-28 10:39 | Diagnostic Imaging Report ---
EXAMINATION: Portable upright radiograph of the chest. INDICATION: Atrial fibrillation. COMPARISON: 01/23/2016. FINDINGS: The heart size is enlarged. There is minimal vascular congestion. There is minimal right infrahilar atelectasis. No effusion or pneumothorax. The mediastinum and marco appear unremarkable. A technical account manager is seen. IMPRESSION: Cardiomegaly with minimal vascular congestion. Dictated by: Dictated on workstation # [id number]
--- NOTE | 2016-06-28 10:43 | ED General ---
General Chief Complaint: General Problems/Pain Stated Complaint: DIZZY Nursing Triage Note: TO ED PER EMS REPORTS IS BEING TX FOR UTI , COUGH CONGESTION, BACK AND ABD PAIN. WITH VOMITING WHEN COUGHING. Nursing Sepsis Screen: Possible Sepsis Risk Source of Information: Patient, EMS, Family Exam Limitations: No Limitations History of Present Illness Time Seen by Provider: 09:23 Initial Comments This 66 numerous chronic health problems presents to the emergency room via EMS with complaints of vomiting, abdominal pain, and generalized feeling of illness , lower back ache, and mild cough with thick sputum for about 6 days. She has numerous health problems including atrial fibrillation on chronic anticoagulation, COPD, hypertension, diabetes, and asthma. She has not taken her Lasix recently due to concern for dehydration. She notes increased urination recently and hyperglycemia. Her blood sugar by EMS was 348. Zofran 4 mg was given by EMS. Patient recently had an ablation performed for atrial fibrillation at [facility] on April 22. She is febrile at present with a temperature of 101.3. She also reports chest pain over the past couple of days and sensation of racing heart last night. Allergies and Home Medications Allergies Coded Allergies: Penicillins (Verified Allergy, Severe, SWELLING, HIVES, THROAT SWELLED, 01/21/16) PATIENT HAS RECEIVED CEFEPIME WITHOUT ISSUE Sulfa (Sulfonamide Antibiotics) (Verified Allergy, Severe, TONGUE SWELLED , 01/21/16) Tetanus & Diphtheria Tox,Adult (Verified Allergy, Severe, SWELLING OF THROAT, 01/21/16) codeine (Verified Allergy, Unknown, HAS RECEIVED LORTAB IN THE PAST, ) Uncoded Allergies: EGGS (Allergy, Unknown, 06/28/16) Home Medications Albuterol/Ipratropium 4 Gm Aero 1 PUFF INH QID PRN PRN SHORTNESS OF BREATH ( Reported) Alprazolam 0.5 Mg Tablet 0.5 MG PO TID PRN PRN ANXIETY (Reported) Apixaban 5 Mg Tablet 5 MG PO BID (Reported) LAST FILLED #60 11-10-15 (STATES SHE RECEIVES SAMPLES) Arformoterol Tartrate 15 Mcg/2 Ml Vial.neb #30 15 MCG IH BID PRN PRN SHORTNESS OF BREATH Prescribed by: DAISY MOTTA on 01/26/16 1014 Aspirin 81 Mg Tablet. 81 MG PO DAILY (Reported) Budesonide 0.5 Mg/2 Ml Ampul.neb 1 VIAL NEB BID PRN PRN SHORTNESS OF BREATH ( Reported) Colesevelam HCl 625 Mg Tablet 1,875 MG PO BID (Reported) TAKES 3 (625MG) TABLETS Colestipol HCl 1 Gm Tablet 1 GM PO BID (Reported) Cyclobenzaprine HCl 10 Mg Tablet 10 MG PO BID PRN PRN MUSCLE SPASMS (Reported) LAST FILLED #60 10-02-15 Diltiazem HCl 180 Mg Cap.er.24h 180 MG PO HS (Reported) Diltiazem HCl 240 Mg Cap.er.deg 240 MG PO DAILY (Reported) Fexofenadine Hcl 180 Mg Tablet 180 MG PO DAILY (Reported) Flecainide Acetate 100 Mg Tablet #60 100 MG PO BID Prescribed by: DAISY MOTTA on 01/15/16 0931 Fluticasone Propionate 16 Gm [place].susp 1 SPRAY NS BID (Reported) Furosemide 20 Mg Tablet 40 MG PO 1000,1500 (Reported) TAKES 2 (20MG) TABLETS Gabapentin 600 Mg Tablet 900 MG PO TID (Reported) TAKES 1 & 1/2 (600MG) TABLETS Hydrocortisone 28.35 Gm Cream.appl TOP TID PRN PRN HEMORRHOIDS (Reported) Insulin Determir 1,000 Units/10 Ml Soln 14 UNITS SQ HS (Reported) Ipratropium/Albuterol Sulfate 3 Ml Ampul.neb 1 VIAL NEB QID PRN PRN SHORTNESS OF BREATH (Reported) Levalbuterol HCl 1.25 Mg/3 Ml Vial.neb #90 1.25 MG INH RTQ6HR Prescribed by: DAISY MOTTA on 01/26/16 1014 Levothyroxine Sodium 88 Mcg Tablet 88 MCG PO DAILY (Reported) LAST FILLED #30 09-29-15 Metoprolol Succinate 100 Mg Tab.er.24h 100 MG PO BID (Reported) Montelukast Sodium 10 Mg Tablet 10 MG PO HS (Reported) LAST FILLED #30 10-29-15 Nystatin 100,000 Unit/1 Ml Oral.susp 5 ML MM QID PRN PRN SORES (Reported) SWISH AND SPIT Pantoprazole Sodium 40 Mg Tablet.dr 40 MG PO DAILY (Reported) #90 FILLED 09-01-15 Potassium Chloride 10 Meq Tablet.er 10 MEQ PO DAILY (Reported) LAST FILLED #30 11-03-15 Prednisone 10 Mg Tab #20 5 MG PO UD 1/2 PILL DAILY X 5 DAYS, THEN 1/2 PILL EVERY OTHER DAY X 10 DAYS THEN STOP Prescribed by: DAISY MOTTA on 01/26/16 1014 Promethazine HCl 25 Mg Tablet 25 MG PO Q8H PRN PRN NAUSEA/VOMITING (Reported) Ropinirole HCl 1 Mg Tablet 0.5-1 MG PO HS (Reported) LAST FILLED #30 11-27-15 STATES SHE SOMETIMES ONLY TAKES 1/2 (1MG) TABLET Sucralfate 1 Gm Tablet #120 1 GM PO ACHS Prescribed by: DAISY MOTTA on 01/26/16 1014 Venlafaxine HCl 37.5 Mg Cap.er.24h 37.5 MG PO DAILY (Reported) TAKES 1 (37.5MG) CAPSULES IN THE MORNING AND TAKES 2 (37.5MG) CAPSULES AT BEDTIME Venlafaxine Hcl 37.5 Mg Cap.sr.24h 75 MG PO HS (Reported) TAKES 1 (37.5MG) CAPSULE IN THE MORNING AND TAKES 2 (37.5MG) CAPSULES AT BEDTIME Constitutional: see HPI EENTM: no symptoms reported Respiratory: see HPI Cardiovascular: see HPI Gastrointestinal: see HPI Genitourinary: see HPI frequency Musculoskeletal: no symptoms reported Skin: no symptoms reported Psychiatric/Neurological: No Symptoms Reported Hematologic/Lymphatic: No Symptoms Reported Past Vdlcvrh-Lbjoud-Vumlhk Hx Patient Social History Alcohol Use: Denies Use Recreational Drug Use: No Smoking Status: Never a Smoker Recent Foreign Travel: No Contact w/Someone Who Travel: No Recent Infectious Disease Expo: No Recent Hopitalizations: Yes Immunizations Up To Date Date of Pneumonia Vaccine: Jan 31, 2012 Seasonal Allergies Seasonal Allergies: Yes Surgeries HX Surgeries: Yes Surgeries: Appendectomy, Breast, Cardiac, Section, Gallbladder, 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, Oophorectomy, Orthopedic, Tonsillectomy Respiratory Hx Respiratory Disorders: Yes Respiratory Disorders: Asthma, Sleep Apnea, COPD Cardiovascular Hx Cardiac Disorders: Yes Cardiac Disorders: Atrial Fibrillation, Chronic Edema/Swelling, Coronary Artery Disease, High Cholesterol, Hypertension, Palpitations Neurological Hx Neurological Disorders: Yes (bels palsy) Neurological Disorders: Neuropathy Reproductive System Hx Reproductive Disorders: No Sexually Transmitted Disease: No 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, 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 Genitourinary Hx Genitourinary Disorders: Yes Genitourinary Disorders: UTI-Chronic Gastrointestinal Hx Gastrointestinal Disorders: Yes Gastrointestinal Disorders: Gastroesophageal Reflux, Diverticulosis, Irritable Bowel Musculoskeletal Hx Musculoskeletal Disorders: Yes Musculoskeletal Disorders: Arthritis, Fibromyalgia, Chronic Back Pain Endocrine Hx Endocrine Disorders: Yes Endocrine Disorders: Diabetes, Insulin dep, Hypothyroidsim HEENT HX ENT Disorders: No HEENT Disorders: Tonsilitis Loss of Vision: Denies Hearing Impairment: Denies Cancer Hx Cancer: No Psychosocial Hx Psychiatric Problems: Yes Behavioral Health Disorders: Anxiety, Depression Integumentary HX Skin/Integumentary Disorder: No Blood Transfusions Hx Blood Disorders: Yes (anemia) Adverse Reaction to a Blood Tr: No Family Medical History Significant Family History: Heart Disease, Diabetes, GI Disease, Hypertension, Stroke Family Medial History: Cardiovascular disease 19 FATHER 19 MOTHER Diabetes mellitus 19 MOTHER Irritable bowel syndrome G8 BROTHER Myocardial infarction 19 FATHER 19 MOTHER TIAs 19 MOTHER Physical Exam Vital Signs Vital Sign - Last 12Hours 06/28/16 06/28/16 09:32 10:10 Temp 101.3 Pulse 91 Resp 18 B/P 153/84 Pulse Ox 97 O2 Delivery Nasal Cannula O2 Flow Rate 2 Capillary Refill : Less Than 3 Seconds General Appearance: WD/WN Mild Distress Obese HEENT: PERRL/EOMI Normal ENT Inspection Other Neck: Normal Inspection (oropharynx very dry) Respiratory: Lungs Clear Normal Breath Sounds No Accessory Muscle Use No Respiratory Distress Cardiovascular: Regular Rate, Rhythm No Murmur Other (mild lower extremity edema) Gastrointestinal: Normal Bowel Sounds Soft Tenderness (tender diffusely, greater in the lower abdomen) Extremity: Non Tender Swelling (mild lower extremity edema equal bilaterally) Neurologic/Psychiatric: Alert Oriented x3 No Motor/Sensory Deficits Normal Mood/Affect jumpbasting canvas baster II-XII Norm as Tested Skin: Normal Color Warm/Dry Progress/Results/Core Measures Results/Orders Lab Results Laboratory Tests Test 06/28/16 09:32 06/28/16 10:07 06/28/16 11:21 06/28/16 11:56 Range/Units Activated Partial Thromboplast Time 38 H 24-35 SEC Alanine Aminotransferase (ALT/SGPT) 19 0-55 U/L Albumin 3.7 3.2-4.5 G/DL Alkaline Phosphatase 120 40-136 U/L Anion Gap 12 5-14 MMOL/L Aspartate Amino Transf (AST/SGOT) 17 5-34 U/L B-Type Natriuretic Peptide 103.4 H <100.0 PG/ML BUN/Creatinine Ratio 9 Basophils # (Auto) 0.0 0.0-0.1 10^3/uL Basophils (%) (Auto) 0 0-10 % Blood Urea Nitrogen 8 7-18 MG/DL C-Reactive Protein High Sensitivity 20.35 H 0.00-0.50 MG/DL Calcium Level 8.8 8.5-10.1 MG/DL Carbon Dioxide Level 27 21-32 MMOL/L Chloride Level 93 L 98-107 MMOL/L Creatinine 0.91 0.60-1.30 MG/DL Digoxin Level 0.55 L 0.80-2.00 NG/ML Eosinophils # (Auto) 0.0 0.0-0.3 10^3/uL Eosinophils (%) (Auto) 0 0-10 % Estimat Glomerular Filtration Rate > 60 Glucose Level 384 H 70-105 MG/DL Hematocrit 35 35-52 % Hemoglobin 10.9 L 11.5-16.0 G/DL INR Comment 1.3 0.8-1.4 Lipase 13 8-78 U/L Lymphocytes # (Auto) 1.0 1.0-4.0 X 10^3 Lymphocytes (%) (Auto) 9 L 12-44 % Magnesium Level 1.8 1.8-2.4 MG/DL Mean Corpuscular Hemoglobin 26 25-34 PG Mean Corpuscular Hemoglobin Concent 31 L 32-36 G/DL Mean Corpuscular Volume 82 80-99 FL Mean Platelet Volume 10.4 7.4-10.4 FL Monocytes # (Auto) 0.9 0.0-1.0 X 10^3 Monocytes (%) (Auto) 8 0-12 % Myoglobin 41.3 10.0-92.0 NG/ML Neutrophils # (Auto) 9.2 H 1.8-7.8 X 10^3 Neutrophils (%) (Auto) 82 H 42-75 % Platelet Count 270 130-400 10^3/uL Potassium Level 4.1 3.6-5.0 MMOL/L Prothrombin Time 15.5 H 12.2-14.7 SEC Red Blood Count 4.26 L 4.35-5.85 10^6/uL Red Cell Distribution Width 14.6 H 10.0-14.5 % Sodium Level 132 L 135-145 MMOL/L Total Bilirubin 0.6 0.1-1.0 MG/DL Total Protein 6.7 6.4-8.2 G/DL Troponin I < 0.30 <0.30 NG/ML White Blood Count 11.2 H 4.3-11.0 10^3/uL Lactic Acid Level 3.5 *H 0.5-2.0 MMOL/L Urine Bacteria NEGATIVE /HPF Urine Bilirubin NEGATIVE NEGATIVE Urine Casts NONE /LPF Urine Clarity CLEAR Urine Color YELLOW Urine Crystals NONE /LPF Urine Culture Indicated NO Urine Glucose (UA) 4+ H NEGATIVE Urine Ketones 1+ H NEGATIVE Urine Leukocyte Esterase 1+ H NEGATIVE Urine Mucus NEGATIVE /LPF Urine Nitrite NEGATIVE NEGATIVE Urine Protein 2+ H NEGATIVE Urine RBC 5-10 H /HPF Urine RBC (Auto) 4+ H NEGATIVE Urine Specific Conrad 1.015 L 1.016-1.022 Urine Squamous Epithelial Cells 5-10 /HPF Urine Urobilinogen NORMAL NORMAL MG/DL Urine WBC 2-5 /HPF Urine pH 6 5-9 Glucometer 279 H 70-110 MG/DL Test 06/28/16 12:00 Range/Units Lactic Acid Level 2.7 *H 0.5-2.0 MMOL/L Micro Results Microbiology 06/28/16 Influenza Types A,B Antigen (ROBIN) - Final, Complete My Orders Orders-MITCHELL FRAGOSO MD Cbc With Automated Diff (06/28/16 09:23) Magnesium (06/28/16 09:23) Chest 1 View, Ap/Pa Only (06/28/16 09:23) Ekg Tracing (06/28/16 09:23) Cardiac Profile 1 (06/28/16 09:23) Comprehensive Metabolic Panel (06/28/16:23) Myoglobin Serum (06/28/16:23) Protime With Inr (06/28/16:23) Partial Thromboplastin Time (06/28/16 09:23) O2 (06/28/16 09:23) Monitor-Rhythm Ecg Trace Only (06/28/16:23) Lipid Panel (06/29/16 06:00) Saline Lock/Iv-Start (06/28/16 09:23) Ua Culture If Indicated (06/28/16 09:23) Lactic Acid Analyzer (06/28/16 09:35) Blood Culture (06/28/16 09:35) Sputum Culture (06/28/16 09:35) Vital Signs Adult Sepsis Patie Q1HR (06/28/16 09:35) Remove Rings In Anticipation O (06/28/16 09:35) Influenza A And B Antigens (06/28/16 09:35) Digoxin (06/28/16 09:36) Ns Iv 1000 Ml (Sodium Chloride 0.9%) (06/28/16 09:36) Ondansetron Injection (Zofran Injectio (06/28/16 09:45) Acetaminophen Tablet (Tylenol Tablet) (06/28/16 10:15) Fentanyl Injection (Sublimaze Injection (06/28/16 10:15) Insulin (Regular) Human (Humulin R (Per (06/28/16 10:30) Ct Abdomen/Pelvis W (06/28/16 10:37) Iohexol Injection (Omnipaque 350 Mg/Ml 1 (06/28/16 10:45) Ns (Ivpb) (Sodium Chloride 0.9% Ivpb Bag (06/28/16 10:45) BNP (06/28/16 10:53) Hs C Reactive Protein (06/28/16 10:53) Lipase (06/28/16 10:53) Levofloxacin 750 Mg/150 Ml Iv (Levaquin (06/28/16 11:45) Accucheck Stat ONCE (06/28/16 11:54) Fentanyl Injection (Sublimaze Injection (06/28/16 12:30) Medications Given in ED Current Medications Medications Dose Ordered Sig/Jorge Route Start Time Stop Time Status Last Admin Dose Admin Acetaminophen 1,000 mg ONCE ONCE PO 06/28/16 10:15 06/28/16 10:16 DC 06/28/16 10:23 1,000 MG Fentanyl Citrate 50 mcg ONCE ONCE IVP 06/28/16 10:15 06/28/16 10:16 DC 06/28/16 10:22 50 MCG Fentanyl Citrate 50 mcg ONCE ONCE IVP 06/28/16 12:30 06/28/16 12:31 DC 06/28/16 12:28 50 MCG Insulin Human Regular 5 unit ONCE ONCE IV 06/28/16 10:30 06/28/16 10:31 DC 06/28/16 10:49 5 UNIT Iohexol 100 ml ONCE ONCE IV 06/28/16 10:45 06/28/16 10:46 DC 06/28/16 10:58 100 ML Levofloxacin/ Dextrose 150 ml @ 100 mls/hr ONCE ONCE IV 06/28/16 11:45 06/28/16 13:14 DC 06/28/16 12:07 100 MLS/HR Ondansetron HCl 4 mg ONCE ONCE IVP 06/28/16 09:45 06/28/16 09:46 DC 06/28/16 09:57 4 MG Sodium Chloride 1,000 ml @ 0 mls/hr Q0M ONCE IV 06/28/16 09:36 06/28/16 09:37 DC 06/28/16 09:58 1,000 MLS/HR Sodium Chloride 100 ml 100 ml ONCE ONCE IV 06/28/16 10:45 06/28/16 10:46 DC 06/28/16 10:58 80 ML Vital Signs/I&O Vital Sign - Last 12Hours 06/28/16 06/28/16 06/28/16 09:32 10:10 12:12 Temp 101.3 99.4 Pulse 91 82 Resp 18 18 B/P 153/84 130/57 Pulse Ox 97 97 O2 Delivery Nasal Cannula Nasal Cannula Nasal Cannula O2 Flow Rate 2 Blood Pressure Mean: 107 Progress Note #1: Time: 10:52 Progress Note Patient was treated by EMS with Zofran 4 mg. She had persistent nausea. An additional 4 mg was ordered. Oropharynx is very dry and patient has been vomiting. IV fluids were initiated. Chest pain and septic workups have been initiated. UA is pending at this time. Patient suggests straight catheter because she does not think she can give a clean specimen otherwise. Patient's nausea has improved. CT of the abdomen and pelvis is pending for further evaluation of her abdominal pain. 5 units of insulin will be administered for hyperglycemia. Lactic acid was elevated which may reflect hydration status. No source of infection has yet been identified. Progress Note #2: Progress Note Pneumonitis was identified in the left lower lung on CT of the abdomen and pelvis. Patient was treated with Levaquin. Patient narrowly meets criteria for sepsis with fever and heart rate of 91. Dr. Motta states patient is usually tachycardic and for this reason doubts true sepsis. Blood sugar improved to 279 after administration of insulin. ECG Initial ECG Impression Date: Jun 28, 2016 Initial ECG Impression Time: 09:45 Initial ECG Rate: 92 Initial ECG Rhythm: Normal Sinus Comment Normal sinus rhythm with no ST elevation or depression. No abnormal intervals or axis deviation. Diagnostic Imaging Diagonstic Imaging: Xray Plain Films/CT/US/NM/MRI: chest Comments Chest x-ray viewed by me and report reviewed. See report below: NAME: FAUSTINO LOCO [facility] REC#: [id number] PT STATUS: REG ER : 1950 PHYSICIAN: MITCHELL FRAGOSO MD ADMIT DATE: 06/28/16/ER Draft Date of Exam:06/28/16 CHEST 1 VIEW, AP/PA ONLY EXAMINATION: Portable upright radiograph of the chest. INDICATION: Atrial fibrillation. COMPARISON: 01/23/2016. FINDINGS: The heart size is enlarged. There is minimal vascular congestion. There is minimal right infrahilar atelectasis. No effusion or pneumothorax. The mediastinum and marco appear unremarkable. A metal stud framer is seen. IMPRESSION: Cardiomegaly with minimal vascular congestion. Dictated on workstation # [id number] Dict: 06/28/16 1026 Trans: 06/28/16 1038 [id number] Interpreted by: TARIK PENNY MD Electronically signed by: Diagonstic Imaging: CT Plain Films/CT/US/NM/MRI: abdomen, pelvis Comments CT abdomen and pelvis viewed by me and report reviewed. See report below: NAME: FAUSTINO LOCO [facility] REC#: [id number] PT STATUS: REG ER : 1950 PHYSICIAN: MITCHELL FRAGOSO MD ADMIT DATE: 06/28/16/ER Draft Date of Exam:06/28/16 CT ABDOMEN/PELVIS W PROCEDURE: CT abdomen and pelvis with contrast. TECHNIQUE: Multiple contiguous axial images were obtained through the abdomen and pelvis after administration of intravenous contrast. INDICATION: Mid abdominal pain. Nausea, vomiting, and diarrhea. CONTRAST: 100 mL of Omnipaque 350 is administered intravenously. COMPARISON: 01/14/2016. FINDINGS: There is a patchy area of consolidation in the posterior aspect of the posterior segment of the right lower lobe measuring 2.3 x 1.2 cm. This is favored to be related to atelectasis or pneumonitis. There is a 5 mm nodule in the right lower lobe, stable from the prior exam. A few other patchy nodular foci in the lung bases were seen on 01/14/2016 that are resolved compatible with transient infection. The liver demonstrates diffuse hepatic steatosis. The overall size of the liver is moderately enlarged. Its craniocaudal dimension in the right lobe is 21 cm. There is no focal mass. Cholecystectomy clips are seen. The spleen is not enlarged. The pancreas and the adrenal glands appear unremarkable. The kidneys have symmetric enhancement and contrast excretion. There is no hydronephrosis. The abdominal aorta is normal in caliber. No para-aortic significantly enlarged lymph nodes are seen. There is no fluid collection or free fluid in the abdomen or pelvis seen. There is suggestion of prior hysterectomy. Surgical suture at the base of the cecum is probably related to prior appendectomy. The urinary bladder appears unremarkable. The osseous structures demonstrate [id number] degenerative changes, most prominent in the lower lumbar spine facet joints. IMPRESSION: 1. Small focal consolidation in the dependent posterior area of the left lower lobe may relate to atelectasis or pneumonitis. Clinical correlation and followup exams recommended. 2. Stable right lower lobe 5 mm nodule, indeterminate. 3. Enlarged fatty liver. Dictated on workstation # [id number] Dict: 06/28/16 1113 Trans: 06/28/16 1132 [id number] Interpreted by: TARIK PENNY MD Departure Impression Impression: Primary Impression: Sepsis Qualified Code: A41.9 - Sepsis, unspecified organism Additional Impressions: Pneumonia Qualified Code: J18.1 - Lobar pneumonia, unspecified organism Hyperglycemia Abdominal pain Qualified Code: R10.84 - Generalized abdominal pain Vomiting Qualified Code: R11.10 - Vomiting, unspecified Chest pain Qualified Code: R07.9 - Chest pain, unspecified Disposition: ADMITTED INPATIENT Condition: Improved Decision to Admit Reason: Admit from ER (General) Decision to Admit/Date: Jun 28, 2016 Time/Decision to Admit Time: 10:00 Departure-Patient Inst. Referrals: DAISY MOTTA MD (PCP/Family) Primary Care Physician MITCHELL FRAGOSO MD Jun 28, 2016 10:43
[2016-06-28] MEDS ORDERED: NS 100 ML (IVPB) BAG IV ONE (10:45)
[2016-06-28] MEDS ORDERED: IOHEXOL 350 MG/ML 100 ML (OMNIPAQUE 350) VIAL IV ONE (10:45)
[2016-06-28 11:24] LABS: hs C REACTIVE PROTEIN 20.35 MG/DL (0.00-0.50)
[2016-06-28 11:30] LABS: BILIRUBIN,URINE NEGATIVE (NEGATIVE); KETONES,URINE 1+ (NEGATIVE); LEUKOCYTE ESTERASE ,URINE 1+ (NEGATIVE); NITRITE,URINE NEGATIVE (NEGATIVE); PH,URINE 6 (5-9); PROTEIN,URINE 2+ (NEGATIVE); UROBILINOGEN,URINE NORMAL (NORMAL)
--- NOTE | 2016-06-28 11:32 | Diagnostic Imaging Report ---
PROCEDURE: CT abdomen and pelvis with contrast. TECHNIQUE: Multiple contiguous axial images were obtained through the abdomen and pelvis after administration of intravenous contrast. INDICATION: Mid abdominal pain. Nausea, vomiting, and diarrhea. CONTRAST: 100 mL of Omnipaque 350 is administered intravenously. COMPARISON: 01/14/2016. FINDINGS: There is a patchy area of consolidation in the posterior aspect of the posterior segment of the right lower lobe measuring 2.3 x 1.2 cm. This is favored to be related to atelectasis or pneumonitis. There is a 5 mm nodule in the right lower lobe, stable from the prior exam. A few other patchy nodular foci in the lung bases were seen on 01/14/2016 that are resolved compatible with transient infection. The liver demonstrates diffuse hepatic steatosis. The overall size of the liver is moderately enlarged. Its craniocaudal dimension in the right lobe is 21 cm. There is no focal mass. Cholecystectomy clips are seen. The spleen is not enlarged. The pancreas and the adrenal glands appear unremarkable. The kidneys have symmetric enhancement and contrast excretion. There is no hydronephrosis. The abdominal aorta is normal in caliber. No para-aortic significantly enlarged lymph nodes are seen. There is no fluid collection or free fluid in the abdomen or pelvis seen. There is suggestion of prior hysterectomy. Surgical suture at the base of the cecum is probably related to prior appendectomy. The urinary bladder appears unremarkable. The osseous structures demonstrate [id number] degenerative changes, most prominent in the lower lumbar spine facet joints. IMPRESSION: 1. Small focal consolidation in the dependent posterior area of the left lower lobe may relate to atelectasis or pneumonitis. Clinical correlation and followup exams recommended. 2. Stable right lower lobe 5 mm nodule, indeterminate. 3. Enlarged fatty liver. Dictated by: Dictated on workstation # [id number]
[2016-06-28] MEDS ORDERED: LEVOFLOXACIN 750 MG/150 ML IV 150 ML IV ONE (11:45)
[2016-06-28 13:45] VITALS: BP 148/67
[2016-06-28] MEDS ORDERED: ACETAMINOPHEN 500 MG TAB (TYLENOL) PO PRN (13:45)
[2016-06-28] MEDS ORDERED: DULO60CA58 PO (14:00)
[2016-06-28] MEDS ORDERED: DIGO125T PO (14:00)
[2016-06-28] MEDS ORDERED: DILT240C53 PO (14:00)
[2016-06-28] MEDS ORDERED: DOXY100T2 PO (14:00)
[2016-06-28] MEDS ORDERED: HYDR-3820 PO (14:00)
[2016-06-28] MEDS ORDERED: FURO40TA4 PO (14:00)
[2016-06-28] MEDS ORDERED: FLEC100T PO (14:24)
[2016-06-28] MEDS ORDERED: INSU100I29 SC (14:24)
[2016-06-28] MEDS ORDERED: SUCR1TAB36 PO (14:24)
[2016-06-28] MEDS ORDERED: ACET-2267 PO (14:24)
[2016-06-28] MEDS ORDERED: RT-ALBUINH INH (14:24)
[2016-06-28] MEDS ORDERED: INSU100I29 SQ (14:24)
[2016-06-28] MEDS ORDERED: ONDA4TAB10 PO (14:24)
[2016-06-28] MEDS: AZTREONAM 2 GM/NS 100 ML IVPB IV SCH ×4 (14:37→22:02)
[2016-06-28] MEDS: NS IV 1000 ML 1,000 ML IV SCH (14:37)
[2016-06-28] MEDS: ONDANSETRON 4 MG/2 ML (SDV) Z0FRAN IVP PRN ×2 (15:01→21:13)
[2016-06-28] MEDS ORDERED: PANTOPRAZOLE 40 MG (PROTONIX) TAB PO SCH (16:00)
--- NOTE | 2016-06-28 16:12 | History & Physicial ---
History of Present Illness History of Present Illness Reason for visit/HPI PT IS A 66 Y/O FEMALE WHO IS WELL KNOWN TO ME FROM CLINIC. FAUSTINO HAS HISTORY OF ATRIAL FIBRILLATION WITH RECENT ABLATION. SHE REPORTEDLY HAD BEEN FEELING POORLY FOR SEVERAL DAYS, AND DUE TO SIGNIFICANT SHORTNESS OF BREATH PRESENTED TO THE EMERGENCY DEPARTMENT FOR EVALUATION WHERE SHE WAS FOUND TO HAVE PNEUMONIA AND ELEVATED LACTIC ACID LEVELS. Date of Admission Jun 28, 2016 at 12:33 I consulted on this patient on 06/28/16 16:09 Attending Physician Daisy Motta MD Admitting Physician Daisy Motta MD Consult Allergies and Home Medications Allergies Coded Allergies: Penicillins (Verified Allergy, Severe, SWELLING, HIVES, THROAT SWELLED, 01/21/16) PATIENT HAS RECEIVED CEFEPIME WITHOUT ISSUE Sulfa (Sulfonamide Antibiotics) (Verified Allergy, Severe, TONGUE SWELLED , 01/21/16) Tetanus & Diphtheria Tox,Adult (Verified Allergy, Severe, SWELLING OF THROAT, 01/21/16) codeine (Verified Allergy, Unknown, HAS RECEIVED LORTAB IN THE PAST, ) Uncoded Allergies: EGGS (Allergy, Unknown, 06/28/16) Home Medications Acetaminophen 500 Mg Tablet 500-1,000 MG PO Q6H PRN PRN SHORTNESS OF BREATH ( Reported) Albuterol Sulfate 8.5 Gm Hfa.aer.ad 2 PUFF INH Q4H PRN PRN SHORTNESS OF BREATH ( Reported) Alprazolam 0.5 Mg Tablet 0.5 MG PO TID PRN PRN ANXIETY (Reported) Apixaban 5 Mg Tablet 5 MG PO BID (Reported) Aspirin 81 Mg Tablet.dr 81 MG PO DAILY (Reported) Budesonide 0.5 Mg/2 Ml Ampul.neb 1 VIAL NEB BID PRN PRN SHORTNESS OF BREATH ( Reported) Colesevelam HCl 625 Mg Tablet 1,875 MG PO BID (Reported) TAKES 3 (625MG) TABLETS Colestipol HCl 1 Gm Tablet 1 GM PO BID (Reported) Cyclobenzaprine HCl 10 Mg Tablet 10 MG PO BID PRN PRN MUSCLE SPASMS (Reported) LAST FILLED #60 10-02-15 Digoxin 125 Mcg Tablet 125 MCG PO HS (Reported) Diltiazem HCl 240 Mg Cap.er.24h 240 MG PO DAILY (Reported) Doxycycline Hyclate 100 Mg Tablet 10Days 100 MG PO BID (Reported) 10 DAY SUPPLY FILLED 2-3-17 Duloxetine HCl 60 Mg Capsule.dr 60 MG PO DAILY (Reported) Fexofenadine Hcl 180 Mg Tablet 180 MG PO DAILY (Reported) Flecainide Acetate 100 Mg Tablet 100 MG PO BID (Reported) Fluticasone Propionate 16 Gm [place].susp 1 SPRAY NS HS (Reported) Furosemide 40 Mg Tablet 40 MG PO 1000,1500 (Reported) Gabapentin 600 Mg Tablet 900 MG PO TID (Reported) TAKES 1 & 1/2 (600MG) TABLETS Hydrocodone/Acetaminophen 1 Each Tablet 1 TAB PO Q6H PRN PRN PAIN (Reported) Hydrocortisone 28.35 Gm Cream.appl TOP TID PRN PRN HEMORRHOIDS (Reported) Insulin Detemir 100 Unit/1 Ml Insuln.pen 35 UNITS SC DAILY (Reported) Insulin Detemir 100 Unit/1 Ml Insuln.pen 30 UNIT SQ HS (Reported) Levothyroxine Sodium 88 Mcg Tablet 88 MCG PO DAILY (Reported) Metoprolol Succinate 100 Mg Tab.er.24h 100 MG PO BID (Reported) Montelukast Sodium 10 Mg Tablet 10 MG PO HS (Reported) Ondansetron HCl 4 Mg Tablet 4 MG PO Q4H PRN PRN NAUSEA/VOMITING (Reported) Pantoprazole Sodium 40 Mg Tablet.dr 40 MG PO BID (Reported) Potassium Chloride 10 Meq Tablet.er 10 MEQ PO DAILY (Reported) Promethazine HCl 25 Mg Tablet 25 MG PO Q8H PRN PRN NAUSEA/VOMITING (Reported) Ropinirole HCl 1 Mg Tablet 0.5-1 MG PO HS (Reported) STATES SHE SOMETIMES ONLY TAKES 1/2 (1MG) TABLET Sucralfate 1 Gm Tablet 1 GM PO ACHS PRN PRN STOMACH UPSET (Reported) Past Lzvflju-Erwawb-Zskoqc Hx Patient Social History Marrital Status: Living Status: LIVES AT HOME WITH SPOUSE 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) Alcohol Use: Denies Use Recreational Drug Use: No Smoking Status: Never a Smoker 2nd Hand Smoke Exposure: No Physical Abuse Screen: No Sexual Abuse: No Recent Foreign Travel: No Contact w/other who traveled: No Recent Hopitalizations: Yes Recent Infectious Disease Expo: No Immunizations Up To Date Date of Pneumonia Vaccine: Jan 31, 2012 Seasonal Allergies Seasonal Allergies: Yes Surgeries HX Surgeries: Yes Surgeries: Appendectomy, Breast, Cardiac, Section, Gallbladder, 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, Oophorectomy, Orthopedic, Tonsillectomy Respiratory Hx Respiratory Disorders: Yes Cardiovascular Hx Cardiovascular Disorders: Yes Cardiac Disorders: Atrial Fibrillation, Chronic Edema/Swelling, Coronary Artery Disease, High Cholesterol, Hypertension, Palpitations Neurological Hx Neurological Disorders: Yes (bels palsy) Neurological Disorders: Neuropathy Reproductive System Hx Reproductive Disorders: No Sexually Transmitted Disease: No HIV/AIDS: 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 Genitourinary Hx Genitourinary Disorders: Yes Genitourinary Disorders: UTI-Chronic Gastrointestinal Hx Gastrointestinal Disorders: Yes Gastrointestinal Disorders: Gastroesophageal Reflux, Diverticulosis, Irritable Bowel Musculoskeletal Hx Musculoskeletal Disorders: Yes Musculoskeletal Disorders: Arthritis, Fibromyalgia, Chronic Back Pain Endocrine Hx Endocrine Disorders: Yes Endocrine Disorders: Diabetes, Insulin dep, Hypothyroidsim HEENT HX ENT Disorders: No HEENT Disorders: Tonsilitis Loss of Vision: Denies Hearing Impairment: Denies Cancer Hx Cancer: No Psychosocial Hx Psychiatric Problems: Yes Behavioral Health Disorders: Anxiety, Depression Integumentary HX Skin/Integumentary Disorder: No Blood Transfusions Hx Blood Disorders: Yes (anemia) Adverse Reaction to a Blood Tr: No Reviewed Nursing Assessment Reviewed/Agree w Nursing PMH: Yes Family Medical History Significant Family History: Heart Disease, Diabetes, GI Disease, Hypertension, Stroke Family Hx: Cardiovascular disease 19 FATHER 19 MOTHER Diabetes mellitus 19 MOTHER Irritable bowel syndrome G8 BROTHER Myocardial infarction 19 FATHER 19 MOTHER TIAs 19 MOTHER Constitutional: chills fever malaise weakness EENTM: No hoarseness, No mouth pain, No throat pain Respiratory: cough dyspnea on exertion Cardiovascular: No chest pain, No palpitations Gastrointestinal: No abdominal pain, nausea vomiting Genitourinary: no symptoms reported Musculoskeletal: no symptoms reported Skin: no symptoms reportedNo change in color Psychiatric/Neurological: Anxiety All Other Systems Reviewed Negative Unless Noted: Yes Physical Exam Vital Signs Vital Sign - Last 12Hours 06/28/16 06/28/16 09:32 10:10 Temp 101.3 Pulse 91 Resp 18 B/P 153/84 Pulse Ox 97 O2 Delivery Nasal Cannula O2 Flow Rate 2 Capillary Refill : Less Than 3 Seconds General Appearance: WD/WN Mild Distress Obese Eyes: Bilateral Eye EOMI, Bilateral Eye Normal Inspection, Bilateral Eye PERRL Neck: Supple Respiratory: Chest Non Tender Crackles Decreased Breath Sounds Cardiovascular: Tachycardia Gastrointestinal: Normal Bowel Sounds No Organomegaly No Pulsatile Mass Non Tender Soft Rectal: Deferred Extremity: Normal Capillary Refill Non Tender No Calf Tenderness Pedal Edema ( RACE) Neurologic/Psychiatric: Alert Oriented x3 No Motor/Sensory Deficits Normal Mood/Affect Skin: Diaphoresis Lymphatic: No Adenopathy Assessment/Plan Assessment and Plan SEPSIS PNEUMONIA LACTIC ACIDOSIS ATRIAL FIBRILLATION POST ABLATION HYPERTENSION DIABETES MELLITUS MORBID OBESITY MILD LEUKOCYTOSIS ELEVATED CRP NAUSEA WITH EMESIS SEPSIS - DUE TO PNEUMONIA - WITH LACTIC ACIDOSIS - LEVAQUIN AND AZTREONAM STARED DUE TO PT'S MULTIPLE OTHER ALLERGIES, MONITOR CHEST XRAY, LACTIC ACID LEVELS AND CONTINUE WITH PNEUMONIA PROTOCOL, START PT'S HOME CPAP. ATRIAL FIBRILLATION POST ABLATION - CONTINUE SUPPORTIVE CARE/TREATMENT HYPERTENSION - RESTART HOME MEDS DIABETES MELLITUS - RESTART HOME MEDS, CHECK FSBS MORBID OBESITY - COMPLICATES CARE DUE TO AIRWAY RESTRICTION FROM HER OBESITY MILD LEUKOCYTOSIS - MONITOR LABS ELEVATED CRP - FOLLOW UP TOMORROW NAUSEA WITH EMESIS - PHENERGAN, ZOFRAN ORDERED. Admission Diagnosis SEPSIS PNEUMONIA LACTIC ACIDOSIS ATRIAL FIBRILLATION POST ABLATION HYPERTENSION DIABETES MELLITUS MORBID OBESITY MILD LEUKOCYTOSIS ELEVATED CRP NAUSEA WITH EMESIS Clinical Quality Measures DVT/VTE Risk/Contraindication: Risk Factor Score Per Nursin RFS Level Per Nursing on Admit: 4+=Very High DAISY MOTTA MD Jun 28, 2016 16:12
[2016-06-28] MEDS ORDERED: PROMETHAZINE 25 MG (PHENERGAN) TAB PO PRN (16:15)
[2016-06-28] MEDS ORDERED: SUCRALFATE 1 GM (CARAFATE) TAB PO PRN (16:15)
[2016-06-28] MEDS ORDERED: RT-ALBUTEROL/IPRATROPIUM 3 ML (DUONEB) VIAL INH PRN (16:15)
[2016-06-28] MEDS ORDERED: PROMETHAZINE INJ 25 MG/ML (PHENERGAN) AMP IVP PRN (16:30)
[2016-06-28] MEDS ORDERED: PROMETHAZINE INJ 25 MG/ML (PHENERGAN) AMP IVP ONE (16:30)
[2016-06-28 16:56] VITALS: BP 144/65
[2016-06-28] MEDS: RT-ALBUTEROL/IPRATROPIUM 3 ML (DUONEB) VIAL INH SCH (19:41)
[2016-06-28 20:32] VITALS: BP 156/81
[2016-06-28 20:36] VITALS: BP 176/81
[2016-06-28] MEDS ORDERED: COLESTIPOL 1 GM (COLESTID) TAB PO SCH (21:00)
[2016-06-28] MEDS ORDERED: METOCLOPRAMIDE INJ 10 MG/2 ML (REGLAN) IVP SCH (21:00)
[2016-06-28] MEDS: KETOROLAC 15 MG/ML VIAL IVP PRN (21:40)
[2016-06-28] MEDS: FAMOTIDINE 20MG/2ML IV (PEPCID) IVP SCH (21:44)
[2016-06-28] MEDS: inSUlin DETERMIR 1 UNIT/0.01 ML (LEVEMIR) CHARGE PER UNIT SQ SCH (21:49)
[2016-06-28] MEDS: rOPINIRole 1 MG (REQUIP) TABLET PO SCH (22:01)
[2016-06-28] MEDS: MONTELUKAST 10 MG (SINGULAIR) TAB PO SCH (22:01)
[2016-06-28] MEDS: GABAPENTIN 300 MG (NEURONTIN) CAP PO SCH (22:01)
[2016-06-28] MEDS: GABAPENTIN 600 MG (NEURONTIN) TAB PO SCH (22:02)
[2016-06-28] MEDS: FLECAINIDE 100 MG (TAMBOCOR) TAB PO SCH (22:02)
[2016-06-28] MEDS: meTOprolol SUCCINATE 100 MG (TOPROL XL) TAB PO SCH (22:02)
[2016-06-28] MEDS: DIGOXIN 0.125 MG (LANOXIN) TAB PO SCH (22:02)
[2016-06-28] MEDS: APIXABAN 5 MG (ELIQUIS) TABLET PO SCH (22:02)
[2016-06-28] MEDS: FLUTICASONE NASAL SPRAY (FLONASE) 16 GM BTL NS SCH (22:06)
[2016-06-28] MEDS ORDERED: LIDOCAINE 2% VISCOUS 15 ML UDC PO ONE (22:30)
[2016-06-28] MEDS ORDERED: ANTACID SUSP 30 ML UDC (MYLANTA) PO ONE (22:30)
[2016-06-28] MEDS: ALPRAZolam 0.5 MG (XANAX) TAB PO PRN (23:24)
[2016-06-29] VITALS (11 sets, daily range): BP systolic 120–177; BP diastolic 61–97
[2016-06-29] MEDS: KETOROLAC 15 MG/ML VIAL IVP PRN (03:07)
[2016-06-29] MEDS: ACETAMINOPHEN 500 MG TAB (TYLENOL) PO PRN ×2 (04:00→20:40)
[2016-06-29] MEDS: NS IV 1000 ML 1,000 ML IV SCH (04:04)
[2016-06-29] MEDS: ONDANSETRON 4 MG/2 ML (SDV) Z0FRAN IVP PRN ×3 (04:09→16:44)
[2016-06-29 04:35] LABS: BASOPHILS % (AUTO) 0 % (0-10); EOSINOPHILS % (AUTO) 0 % (0-10); LYMPHOCYTES % (AUTO) 9 % (12-44); MEAN CORPUSCULAR HEMOGLOBIN 25 PG (25-34); MEAN CORPUSCULAR HGB CONC 30 G/DL (32-36); MEAN CORPUSCULAR VOLUME 83 FL (80-99); MEAN PLATELET VOLUME 10.4 FL (7.4-10.4); MONOCYTES # (AUTO) 0.9 X 10^3 (0.0-1.0); MONOCYTES % (AUTO) 8 % (0-12); NEUTROPHILS # (AUTO) 9.2 X 10^3 (1.8-7.8); NEUTROPHILS % (AUTO) 83 % (42-75); PLATELET COUNT 236 10^3/uL (130-400); RED BLOOD COUNT 4.02 10^6/uL (4.35-5.85); RED CELL DISTRIBUTION WIDTH 14.5 % (10.0-14.5); WHITE BLOOD COUNT 11.1 10^3/uL (4.3-11.0)
[2016-06-29 05:03] LABS: CHOLESTEROL 163 MG/DL (< 200); DIRECT LDL 107 MG/DL (1-129); TRIGLYCERIDES 154 MG/DL (<150); VLDL CHOLESTEROL 31 MG/DL (5-40)
[2016-06-29 05:05] LABS: ANION GAP 14 MMOL/L (5-14); BLOOD UREA NITROGEN 9 MG/DL (7-18); BUN/CREATININE RATIO 11; CALCIUM 8.5 MG/DL (8.5-10.1); CARBON DIOXIDE 25 MMOL/L (21-32); CHLORIDE 98 MMOL/L (98-107); CREATININE SERUM 0.84 MG/DL (0.60-1.30); GFR ESTIMATED > 60; GLUCOSE 253 MG/DL (70-105); POTASSIUM 3.5 MMOL/L (3.6-5.0); SODIUM 137 MMOL/L (135-145)
[2016-06-29] MEDS: AZTREONAM 2 GM/NS 100 ML IVPB IV SCH ×6 (05:18→20:39)
[2016-06-29] MEDS: CYCLOBENZAPRINE 10 MG (FLEXERIL) TAB PO PRN (05:40)
[2016-06-29] MEDS: LEVOTHYROXINE 88 MCG (LEVOTHORID) TAB PO SCH (05:40)
[2016-06-29] MEDS: KCL 10 MEQ TAB (MICRO K) PO SCH (05:40)
[2016-06-29] MEDS: RT-ALBUTEROL/IPRATROPIUM 3 ML (DUONEB) VIAL INH SCH ×4 (06:30→18:03)
--- NOTE | 2016-06-29 07:04 | Pulmonary Consultation ---
History of Present Illness History of Present Illness Date of Consultation 06/29/16 06:59 Date of Admission History of Present Illness 66yo with hx of COPD, and Afib with recent ablation presented secondary to worsening SOB and found to have pneumonia. Pt has a hx of frequent hospitalizations. pt was transferred to ICU from [facility] secondary to worsening respiratory distress. SHe was requiring BiPAP last night. I am consulted for ICU management. Allergies and Home Medications Allergies Coded Allergies: Penicillins (Verified Allergy, Severe, SWELLING, HIVES, THROAT SWELLED, 01/21/16) PATIENT HAS RECEIVED CEFEPIME WITHOUT ISSUE Sulfa (Sulfonamide Antibiotics) (Verified Allergy, Severe, TONGUE SWELLED , 01/21/16) Tetanus & Diphtheria Tox,Adult (Verified Allergy, Severe, SWELLING OF THROAT, 01/21/16) codeine (Verified Allergy, Unknown, HAS RECEIVED LORTAB IN THE PAST, ) egg (Unverified Allergy, Unknown, 06/29/16) FROM UNCODED ALLERGIES Home Medications Acetaminophen 500 Mg Tablet 500-1,000 MG PO Q6H PRN PRN SHORTNESS OF BREATH ( Reported) Albuterol Sulfate 8.5 Gm Hfa.aer.ad 2 PUFF INH Q4H PRN PRN SHORTNESS OF BREATH ( Reported) Alprazolam 0.5 Mg Tablet 0.5 MG PO TID PRN PRN ANXIETY (Reported) Apixaban 5 Mg Tablet 5 MG PO BID (Reported) Aspirin 81 Mg Tablet.dr 81 MG PO DAILY (Reported) Budesonide 0.5 Mg/2 Ml Ampul.neb 1 VIAL NEB BID PRN PRN SHORTNESS OF BREATH ( Reported) Colesevelam HCl 625 Mg Tablet 1,875 MG PO BID (Reported) TAKES 3 (625MG) TABLETS Colestipol HCl 1 Gm Tablet 1 GM PO BID (Reported) Cyclobenzaprine HCl 10 Mg Tablet 10 MG PO BID PRN PRN MUSCLE SPASMS (Reported) LAST FILLED #60 10-02-15 Digoxin 125 Mcg Tablet 125 MCG PO HS (Reported) Diltiazem HCl 240 Mg Cap.er.24h 240 MG PO DAILY (Reported) Doxycycline Hyclate 100 Mg Tablet 10Days 100 MG PO BID (Reported) 10 DAY SUPPLY FILLED 06-24-16 Duloxetine HCl 60 Mg Capsule.dr 60 MG PO DAILY (Reported) Fexofenadine Hcl 180 Mg Tablet 180 MG PO DAILY (Reported) Flecainide Acetate 100 Mg Tablet 100 MG PO BID (Reported) Fluticasone Propionate 16 Gm [place].susp 1 SPRAY NS HS (Reported) Furosemide 40 Mg Tablet 40 MG PO 1000,1500 (Reported) Gabapentin 600 Mg Tablet 900 MG PO TID (Reported) TAKES 1 & 1/2 (600MG) TABLETS Hydrocodone/Acetaminophen 1 Each Tablet 1 TAB PO Q6H PRN PRN PAIN (Reported) Hydrocortisone 28.35 Gm Cream.appl TOP TID PRN PRN HEMORRHOIDS (Reported) Insulin Detemir 100 Unit/1 Ml Insuln.pen 35 UNITS SC DAILY (Reported) Insulin Detemir 100 Unit/1 Ml Insuln.pen 30 UNIT SQ HS (Reported) Levothyroxine Sodium 88 Mcg Tablet 88 MCG PO DAILY (Reported) Metoprolol Succinate 100 Mg Tab.er.24h 100 MG PO BID (Reported) Montelukast Sodium 10 Mg Tablet 10 MG PO HS (Reported) Ondansetron HCl 4 Mg Tablet 4 MG PO Q4H PRN PRN NAUSEA/VOMITING (Reported) Pantoprazole Sodium 40 Mg Tablet.dr 40 MG PO BID (Reported) Potassium Chloride 10 Meq Tablet.er 10 MEQ PO DAILY (Reported) Promethazine HCl 25 Mg Tablet 25 MG PO Q8H PRN PRN NAUSEA/VOMITING (Reported) Ropinirole HCl 1 Mg Tablet 0.5-1 MG PO HS (Reported) STATES SHE SOMETIMES ONLY TAKES 1/2 (1MG) TABLET Sucralfate 1 Gm Tablet 1 GM PO ACHS PRN PRN STOMACH UPSET (Reported) Past Fyvyhvs-Hertjz-Maydpu Hx Patient Social History Alcohol Use: Denies Use Recreational Drug Use: No Smoking Status: Never a Smoker Recent Foreign Travel: No Contact w/Someone Who Travel: No Recent Infectious Disease Expo: No Recent Hopitalizations: Yes Physical Abuse Screen: No Sexual Abuse: No Immunizations Up To Date Date of Pneumonia Vaccine: Jan 31, 2012 Seasonal Allergies Seasonal Allergies: Yes Surgeries HX Surgeries: Yes Surgeries: Appendectomy, Breast, Cardiac, Section, Gallbladder, 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, Oophorectomy, Orthopedic, Tonsillectomy Respiratory Hx Respiratory Disorders: Yes Respiratory Disorders: Asthma, Sleep Apnea, COPD Cardiovascular Hx Cardiac Disorders: Yes Cardiac Disorders: Atrial Fibrillation, Chronic Edema/Swelling, Coronary Artery Disease, High Cholesterol, Hypertension, Palpitations Neurological Hx Neurological Disorders: Yes (bels palsy) Neurological Disorders: Neuropathy Reproductive System Hx Reproductive Disorders: No Sexually Transmitted Disease: No 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/AIDS: 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, 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 Genitourinary Hx Genitourinary Disorders: Yes Genitourinary Disorders: UTI-Chronic Gastrointestinal Hx Gastrointestinal Disorders: Yes Gastrointestinal Disorders: Gastroesophageal Reflux, Diverticulosis, Irritable Bowel Musculoskeletal Hx Musculoskeletal Disorders: Yes Musculoskeletal Disorders: Arthritis, Fibromyalgia, Chronic Back Pain Endocrine Hx Endocrine Disorders: Yes Endocrine Disorders: Diabetes, Insulin dep, Hypothyroidsim HEENT HX ENT Disorders: No HEENT Disorders: Tonsilitis Loss of Vision: Denies Hearing Impairment: Denies Cancer Hx Cancer: No Psychosocial Hx Psychiatric Problems: Yes Behavioral Health Disorders: Anxiety, Depression Integumentary HX Skin/Integumentary Disorder: No Blood Transfusions Hx Blood Disorders: Yes (anemia) Adverse Reaction to a Blood Tr: No Family Medical History Significant Family History: Heart Disease, Diabetes, GI Disease, Hypertension, Stroke Family Medial History: Cardiovascular disease 19 FATHER 19 MOTHER Diabetes mellitus 19 MOTHER Irritable bowel syndrome G8 BROTHER Myocardial infarction 19 FATHER 19 MOTHER TIAs 19 MOTHER Review of Systems Constitutional: : Fever: Malaise: Weakness Eyes: No: Conjunctivae inflammation, Eyelid inflammation, Other, Pain, Redness , Vision change ENT: No: Ear discharge, Ear pain, Mouth pain, Mouth swelling, Nose congestion, Nose discharge, Nose pain, Other, Throat pain, Throat swelling Respiratory: : Cough: Dry: SOB with excertion: Shortness of breath: Wheezing Cardiovascular: : Edema: Orthopnea: Paroxysmal Noc. Dyspnea Neurological: : Weakness Exam Exam Vital Signs Date Time Temp Pulse Resp B/P Pulse Ox O2 Delivery O2 Flow Rate FiO2 06/29/16 06:30 96 6.00 06/29/16 06:00 102 162/92 99 Nasal Cannula 3.00 06/29/16 05:30 104 120/78 98 Nasal Cannula 3.00 06/29/16 05:22 102.2 06/29/16 05:00 102 142/69 98 Nasal Cannula 3.00 06/29/16 04:58 103.2 06/29/16 04:37 103.2 06/29/16 04:30 103 166/80 96 Nasal Cannula 3.00 06/29/16 04:00 104.0 Nasal Cannula 3.00 06/29/16 04:00 107 163/88 95 Nasal Cannula 3.00 06/29/16 03:56 111 06/29/16 03:54 111 177/64 98 Nasal Cannula 3.00 06/29/16 03:52 104.0 06/29/16 03:52 95 Nasal Cannula 3.00 06/29/16 03:14 118 35 98 50.00 06/29/16 03:03 92 6.00 06/29/16 02:10 2.00 06/29/16 01:03 85 22 100 50.00 06/29/16 01:00 89 06/29/16 00:00 98.9 86 24 142/97 95 Nasal Cannula 2.00 06/28/16 20:36 98.2 99 18 176/81 95 Nasal Cannula 2.00 06/28/16 19:53 107 06/28/16 19:41 93 2.00 06/28/16 16:56 97.7 90 18 144/65 100 Nasal Cannula 2.00 06/28/16 15:58 97 2.00 06/28/16 15:58 97 06/28/16 13:45 100 Nasal Cannula 2.00 06/28/16 13:45 97.2 78 20 148/67 99 Nasal Cannula 2.00 06/28/16 13:07 99.4 80 18 97 06/28/16 12:12 99.4 82 18 130/57 97 Nasal Cannula 06/28/16 10:10 101.3 91 18 153/84 97 Nasal Cannula 06/28/16 09:32 Nasal Cannula 2 I & O 06/29/16 07:00 Intake Total 2320 ml Output Total 250 ml Balance 2070 ml General Appearance: WD/WN Mild Distress Obese HEENT: PERRL/EOMI Normal ENT Inspection Other Neck: Normal Inspection (oropharynx very dry) Respiratory: Lungs Clear Normal Breath Sounds No Accessory Muscle Use No Respiratory Distress Cardiovascular: Regular Rate, Rhythm No Murmur Other (mild lower extremity edema) Capillary Refill: Less Than 3 Seconds Extremity: Non Tender Swelling (mild lower extremity edema equal bilaterally) Neurologic/Psychiatric: Alert Oriented x3 No Motor/Sensory Deficits Normal 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
[2016-06-29] MEDS ORDERED: POTASSIUM CL 10MEQ/50ML IVPB 50 ML IV SCH (07:15)
--- NOTE | 2016-06-29 08:51 | Progress Note (SOAP) ---
Subjective Subjective/Events-last exam PT IS A 66 Y/O FEMALE WHO IS KNOWN TO ME FROM CLINIC. SHE WAS ADMITTED WITH PNEUMONIA, SEPSIS AND LAST NIGHT HAD A REALLY BAD NIGHT WITH CONFUSION, WEAKNESS , PULLING OFF CPAP, AND PATIENT WAS TRANSFERRED UP TO STEPDOWN STATUS DUE TO THE SYMPTOMS OF INCREASED CONFUSION, AND CHEST PAIN. Review of Systems General: Fatigue Malaise HEENT: No Head Aches Pulmonary: Dyspnea Cough Cardiovascular: No: Chest Pain Gastrointestinal: : NauseaNo: Abdominal Pain Neurological: : Weakness Objective Exam Vital Signs Date Time Temp Pulse Resp B/P Pulse Ox O2 Delivery O2 Flow Rate FiO2 06/29/16 07:00 97 06/29/16 06:30 96 6.00 06/29/16 06:00 102 162/92 99 Nasal Cannula 3.00 06/29/16 05:30 104 120/78 98 Nasal Cannula 3.00 06/29/16 05:22 102.2 06/29/16 05:00 102 142/69 98 Nasal Cannula 3.00 06/29/16 04:58 103.2 06/29/16 04:37 103.2 06/29/16 04:30 103 166/80 96 Nasal Cannula 3.00 06/29/16 04:00 104.0 Nasal Cannula 3.00 06/29/16 04:00 107 163/88 95 Nasal Cannula 3.00 06/29/16 03:56 111 06/29/16 03:54 111 177/64 98 Nasal Cannula 3.00 06/29/16 03:52 104.0 06/29/16 03:52 95 Nasal Cannula 3.00 06/29/16 03:14 118 35 98 50.00 06/29/16 03:03 92 6.00 06/29/16 02:10 2.00 06/29/16 01:03 85 22 100 50.00 06/29/16 01:00 89 06/29/16 00:00 98.9 86 24 142/97 95 Nasal Cannula 2.00 06/28/16 20:36 98.2 99 18 176/81 95 Nasal Cannula 2.00 06/28/16 19:53 107 06/28/16 19:41 93 2.00 06/28/16 16:56 97.7 90 18 144/65 100 Nasal Cannula 2.00 06/28/16 15:58 97 2.00 06/28/16 15:58 97 06/28/16 13:45 100 Nasal Cannula 2.00 06/28/16 13:45 97.2 78 20 148/67 99 Nasal Cannula 2.00 06/28/16 13:07 99.4 80 18 97 06/28/16 12:12 99.4 82 18 130/57 97 Nasal Cannula 06/28/16 10:10 101.3 91 18 153/84 97 Nasal Cannula 06/28/16 09:32 Nasal Cannula 2 I & O 06/29/16 07:00 Intake Total 2320 ml Output Total 250 ml Balance 2070 ml Capillary Refill : Less Than 3 Seconds General Appearance: No Apparent Distress WD/WN HEENT: PERRL/EOMI Neck: Full Range of Motion Supple Respiratory: Chest Non Tender Decreased Breath Sounds Cardiovascular: Tachycardia Gastrointestinal: normal bowel sounds non tender soft Extremity: No Pedal Edema Neurologic/Psychiatric: Alert Oriented x3 No Motor/Sensory Deficits Normal Mood/Affect Skin: Warm/Dry Lymphatic: No Adenopathy Results Lab Laboratory Tests 06/28/16 09:32: Activated Partial Thromboplast Time 38H, Alanine Aminotransferase (ALT/SGPT) 19 , Albumin 3.7, Alkaline Phosphatase 120, Anion Gap 12, Aspartate Amino Transf ( AST/SGOT) 17, B-Type Natriuretic Peptide 103.4H, BUN/Creatinine Ratio 9, Basophils # (Auto) 0.0, Basophils (%) (Auto) 0, Blood Urea Nitrogen 8, C- Reactive Protein High Sensitivity 20.35H, Calcium Level 8.8, Carbon Dioxide Level 27, Chloride Level 93L, Creatinine 0.91, Digoxin Level 0.55L, Eosinophils # (Auto) 0.0, Eosinophils (%) (Auto) 0, Estimat Glomerular Filtration Rate > 60 , Glucose Level 384H, Hematocrit 35, Hemoglobin 10.9L, INR Comment 1.3, Lipase 13, Lymphocytes # (Auto) 1.0, Lymphocytes (%) (Auto) 9L, Magnesium Level 1.8, Mean Corpuscular Hemoglobin 26, Mean Corpuscular Hemoglobin Concent 31L, Mean Corpuscular Volume 82, Mean Platelet Volume 10.4, Monocytes # (Auto) 0.9, Monocytes (%) (Auto) 8, Myoglobin 41.3, Neutrophils # (Auto) 9.2H, Neutrophils ( %) (Auto) 82H, Platelet Count 270, Potassium Level 4.1, Prothrombin Time 15.5H, Red Blood Count 4.26L, Red Cell Distribution Width 14.6H, Sodium Level 132L, Total Bilirubin 0.6, Total Protein 6.7, Troponin I < 0.30, White Blood Count 11.2H 06/28/16 10:07: Lactic Acid Level 3.5*H 06/28/16 11:21: Urine Bacteria NEGATIVE, Urine Bilirubin NEGATIVE, Urine Casts NONE, Urine Clarity CLEAR, Urine Color YELLOW, Urine Crystals NONE, Urine Culture Indicated NO, Urine Glucose (UA) 4+H, Urine Ketones 1+H, Urine Leukocyte Esterase 1+H, Urine Mucus NEGATIVE, Urine Nitrite NEGATIVE, Urine Protein 2+H, Urine RBC 5-10H , Urine RBC (Auto) 4+H, Urine Specific Issue 1.015L, Urine Squamous Epithelial Cells 5-10, Urine Urobilinogen NORMAL, Urine WBC 2-5, Urine pH 6 06/28/16 11:56: Glucometer 279H 06/28/16 12:00: Lactic Acid Level 2.7*H 06/28/16 17:54: Glucometer 273H 06/28/16 20:38: Glucometer 263H 06/28/16 21:37: Troponin I < 0.30 06/29/16 01:14: Glucometer 288H 06/29/16 04:13: Anion Gap 14, BUN/Creatinine Ratio 11, Basophils # (Auto) 0.0, Basophils (%) ( Auto) 0, Blood Urea Nitrogen 9, Calcium Level 8.5, Carbon Dioxide Level 25, Chloride Level 98, Cholesterol Level 163, Creatinine 0.84, Eosinophils # (Auto) 0.0, Eosinophils (%) (Auto) 0, Estimat Glomerular Filtration Rate > 60, Glucose Level 253H, HDL Cholesterol 34L, Hematocrit 33L, Hemoglobin 10.1L, LDL Cholesterol Direct 107, Lymphocytes # (Auto) 1.0, Lymphocytes (%) (Auto) 9L, Mean Corpuscular Hemoglobin 25, Mean Corpuscular Hemoglobin Concent 30L, Mean Corpuscular Volume 83, Mean Platelet Volume 10.4, Monocytes # (Auto) 0.9, Monocytes (%) (Auto) 8, Neutrophils # (Auto) 9.2H, Neutrophils (%) (Auto) 83H, Platelet Count 236, Potassium Level 3.5L, Red Blood Count 4.02L, Red Cell Distribution Width 14.5, Sodium Level 137, Triglycerides Level 154H, VLDL Cholesterol 31, White Blood Count 11.1H Microbiology 06/28/16 Influenza Types A,B Antigen (ROBIN) - Final, Complete Assessment/Plan Assessment/Plan Assess & Plan/Chief Complaint SEPSIS PNEUMONIA LACTIC ACIDOSIS ATRIAL FIBRILLATION POST ABLATION HYPERTENSION DIABETES MELLITUS MORBID OBESITY MILD LEUKOCYTOSIS ELEVATED CRP NAUSEA WITH EMESIS SEPSIS - DUE TO PNEUMONIA - WITH LACTIC ACIDOSIS - LEVAQUIN AND AZTREONAM STARED DUE TO PT'S MULTIPLE OTHER ALLERGIES, MONITOR CHEST XRAY, LACTIC ACID LEVELS AND CONTINUE WITH PNEUMONIA PROTOCOL, START PT'S HOME CPAP. PT HAD ACUTE EPISODE OF CONFUSION AND RESPIRATORY DISTRESS LAST NIGHT - PT MOVED TO ICU STEPDOWN STATUS AND CONSULT PLACED TO DR. WU. ATRIAL FIBRILLATION POST ABLATION - CONTINUE SUPPORTIVE CARE/TREATMENT HYPERTENSION - RESTARTED HOME MEDS DIABETES MELLITUS - RESTART HOME MEDS, CHECK FSBS MORBID OBESITY - COMPLICATES CARE DUE TO AIRWAY RESTRICTION FROM HER OBESITY MILD LEUKOCYTOSIS - MONITOR LABS ELEVATED CRP - FOLLOW SERIAL CRPS NAUSEA WITH EMESIS - PHENERGAN, ZOFRAN ORDERED. Diagnosis/Problems: Clinical Quality Measures DVT/VTE Risk/Contraindication: Risk Factor Score Per Nursin RFS Level Per Nursing on Admit: 4+=Very High DAISY JOHNSON MD Jun 29, 2016 08:50
[2016-06-29] MEDS ORDERED: METOCLOPRAMIDE INJ 10 MG/2 ML (REGLAN) IVP SCH (09:00)
[2016-06-29] MEDS: LEVOFLOXACIN 750 MG/D5W 150 ML PRE-MIX IV SCH (10:17)
[2016-06-29] MEDS: LORATADINE (CLARITIN) 10 MG TAB PO SCH (10:18)
[2016-06-29] MEDS: FAMOTIDINE 20MG/2ML IV (PEPCID) IVP SCH ×2 (10:18→20:40)
[2016-06-29] MEDS: GABAPENTIN 600 MG (NEURONTIN) TAB PO SCH ×3 (10:18→20:40)
[2016-06-29] MEDS: FLECAINIDE 100 MG (TAMBOCOR) TAB PO SCH ×2 (10:18→20:40)
[2016-06-29] MEDS: GABAPENTIN 300 MG (NEURONTIN) CAP PO SCH ×3 (10:19→20:41)
[2016-06-29] MEDS: meTOprolol SUCCINATE 100 MG (TOPROL XL) TAB PO SCH ×2 (10:19→20:41)
[2016-06-29] MEDS: FUROSEMIDE 40 MG (LASIX) TAB PO SCH ×2 (10:19→16:44)
[2016-06-29] MEDS: ASPIRIN E.C. 81 MG (ECOTRIN) TAB PO SCH (10:19)
[2016-06-29] MEDS: APIXABAN 5 MG (ELIQUIS) TABLET PO SCH ×2 (10:19→20:41)
[2016-06-29] MEDS: DULoxetine 30 MG (CYMBALTA) CAP PO SCH (10:19)
[2016-06-29] MEDS: DILTIAZEM 240 MG (CARDIZEM CD) CAP PO SCH (10:20)
[2016-06-29] MEDS: inSUlin DETERMIR 1 UNIT/0.01 ML (LEVEMIR) CHARGE PER UNIT SQ SCH ×2 (10:20→20:39)
[2016-06-29] MEDS: HYDROcodone/APAP 10 MG/325 MG (LORTAB) TAB PO PRN ×2 (10:25→16:44)
[2016-06-29] MEDS ORDERED: METOCLOPRAMIDE INJ 10 MG/2 ML (REGLAN) IVP PRN (12:00)
[2016-06-29] MEDS ORDERED: KCL 20 MEQ TAB (K-DUR) PO NR (13:00)
[2016-06-29] MEDS: rOPINIRole 1 MG (REQUIP) TABLET PO SCH (20:40)
[2016-06-29] MEDS: DIGOXIN 0.125 MG (LANOXIN) TAB PO SCH (20:40)
[2016-06-29] MEDS: MONTELUKAST 10 MG (SINGULAIR) TAB PO SCH (20:41)
[2016-06-29] MEDS: DICLOFENAC 1% GEL 100 GM (VOLTAREN) TUBE TOP SCH (20:41)
[2016-06-29] MEDS: FLUTICASONE NASAL SPRAY (FLONASE) 16 GM BTL NS SCH (20:41)
[2016-06-30] VITALS: BP 139/72
[2016-06-30] MEDS: NS IV 1000 ML 1,000 ML IV SCH ×3 (01:00→17:40)
[2016-06-30 04:00] VITALS: BP 140/85
[2016-06-30] MEDS: AZTREONAM 2 GM/NS 100 ML IVPB IV SCH ×2 (05:32)
--- NOTE | 2016-06-30 05:47 | Pulmonary Progress Note ---
Subjective Subjective/Events-last exam Pt is feeling much improved. Exam Exam Vital Signs Date Time Temp Pulse Resp B/P Pulse Ox O2 Delivery O2 Flow Rate FiO2 06/30/16 04:04 77 21 50.00 06/30/16 02:26 77 20 50.00 06/30/16 01:00 73 06/30/16 00:10 75 20 50.00 06/30/16 00:00 99.1 139/72 NIV/Bilevel 50.00 06/29/16 22:29 80 18 98 50.00 06/29/16 21:00 101.0 06/29/16 20:00 95 Nasal Cannula 3.00 06/29/16 20:00 101.5 108 142/61 Nasal Cannula 3.00 06/29/16 19:00 98 06/29/16 18:04 88 3.00 06/29/16 17:14 102.2 06/29/16 16:44 102.2 06/29/16 16:00 103.3 110 20 158/88 95 Nasal Cannula 3.00 06/29/16 14:28 93 6.00 06/29/16 12:00 99.9 102 20 167/90 96 Nasal Cannula 3.00 06/29/16 10:33 95 6.00 06/29/16 08:00 98.5 108 20 148/88 97 Nasal Cannula 3.00 06/29/16 08:00 95 Nasal Cannula 3.00 06/29/16 07:00 97 06/29/16 06:30 96 6.00 06/29/16 06:00 102 162/92 99 Nasal Cannula 3.00 I & O 06/30/16 07:00 Intake Total 3100 ml Balance 3100 ml General Appearance: No Apparent Distress WD/WN Obese HEENT: PERRL/EOMI Normal ENT Inspection Other Neck: Normal Inspection (oropharynx very dry) Respiratory: Lungs Clear Normal Breath Sounds No Accessory Muscle Use No Respiratory Distress Cardiovascular: Regular Rate, Rhythm No Murmur Other (mild lower extremity edema) Capillary Refill: Less Than 3 Seconds Gastrointestinal: normal bowel sounds non tender soft Extremity: Non Tender Swelling (mild lower extremity edema equal bilaterally) Neurologic/Psychiatric: Alert Oriented x3 No Motor/Sensory Deficits Normal 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
[2016-06-30 05:51] LABS: BASOPHILS % (AUTO) 0 % (0-10); EOSINOPHILS % (AUTO) 0 % (0-10); LYMPHOCYTES # (AUTO) 1.5 X 10^3 (1.0-4.0); LYMPHOCYTES % (AUTO) 16 % (12-44); MEAN CORPUSCULAR HEMOGLOBIN 26 PG (25-34); MEAN CORPUSCULAR HGB CONC 31 G/DL (32-36); MEAN CORPUSCULAR VOLUME 83 FL (80-99); MEAN PLATELET VOLUME 10.4 FL (7.4-10.4); MONOCYTES # (AUTO) 0.7 X 10^3 (0.0-1.0); MONOCYTES % (AUTO) 8 % (0-12); NEUTROPHILS # (AUTO) 6.8 X 10^3 (1.8-7.8); NEUTROPHILS % (AUTO) 75 % (42-75); PLATELET COUNT 231 10^3/uL (130-400); RED BLOOD COUNT 3.67 10^6/uL (4.35-5.85); RED CELL DISTRIBUTION WIDTH 14.8 % (10.0-14.5); WHITE BLOOD COUNT 9.1 10^3/uL (4.3-11.0)
[2016-06-30] MEDS: KCL 10 MEQ TAB (MICRO K) PO SCH (05:59)
[2016-06-30] MEDS: LEVOTHYROXINE 88 MCG (LEVOTHORID) TAB PO SCH (05:59)
[2016-06-30] MEDS: ONDANSETRON 4 MG/2 ML (SDV) Z0FRAN IVP PRN (05:59)
[2016-06-30] MEDS ORDERED: MAGNESIUM 1 GM/100 ML IVPB 100 ML IV SCH (06:00)
[2016-06-30] MEDS ORDERED: KCL 20 MEQ TAB (K-DUR) PO SCH (06:00)
[2016-06-30] MEDS ORDERED: POTASSIUM CL 10MEQ/50ML IVPB 50 ML IV SCH (06:00)
[2016-06-30] MEDS: RT-ALBUTEROL/IPRATROPIUM 3 ML (DUONEB) VIAL INH SCH ×4 (06:00→19:51)
[2016-06-30 06:24] LABS: ANION GAP 11 MMOL/L (5-14); BLOOD UREA NITROGEN 10 MG/DL (7-18); BUN/CREATININE RATIO 13; CALCIUM 8.7 MG/DL (8.5-10.1); CARBON DIOXIDE 26 MMOL/L (21-32); CHLORIDE 101 MMOL/L (98-107); CREATININE SERUM 0.75 MG/DL (0.60-1.30); GFR ESTIMATED > 60; GLUCOSE 162 MG/DL (70-105); MAGNESIUM 1.8 MG/DL (1.8-2.4); PHOSPHORUS 2.6 MG/DL (2.3-4.7); POTASSIUM 3.7 MMOL/L (3.6-5.0); SODIUM 138 MMOL/L (135-145)
[2016-06-30] MEDS: HYDROcodone/APAP 10 MG/325 MG (LORTAB) TAB PO PRN ×3 (06:45→20:27)
--- NOTE | 2016-06-30 07:18 | Progress Note (SOAP) ---
Subjective Subjective/Events-last exam PT IS A 66 Y/O FEMALE WHO IS HOSPITALIZED FOR FEVER, WEAKNESS, UNCONTROLLED NAUSEA AND EMESIS. SHE REPORTS THAT SHE IS FEELING BETTER TODAY AND MUCH LESS NAUSEATED TODAY. SHE REPORTS STILL HAVING BACK PAIN, AND SOME ABDOMINAL PAIN TODAY. Review of Systems General: Fatigue HEENT: No Head Aches Pulmonary: Dyspnea Cough (IMPROVED) Cardiovascular: No: Chest Pain, Edema Gastrointestinal: : Abdominal Pain: Nausea Genitourinary: No Dysuria Musculoskeletal: : back pain Neurological: : WeaknessNo: Confusion Objective Exam Vital Signs Date Time Temp Pulse Resp B/P Pulse Ox O2 Delivery O2 Flow Rate FiO2 06/30/16 06:00 94 3.00 06/30/16 04:04 77 21 50.00 06/30/16 04:00 100.1 140/85 NIV/Bilevel 50.00 06/30/16 02:26 77 20 50.00 06/30/16 01:00 73 06/30/16 00:10 75 20 50.00 06/30/16 00:00 99.1 139/72 NIV/Bilevel 50.00 06/29/16 22:29 80 18 98 50.00 06/29/16 21:00 101.0 06/29/16 20:00 95 Nasal Cannula 3.00 06/29/16 20:00 101.5 108 142/61 Nasal Cannula 3.00 06/29/16 19:00 98 06/29/16 18:04 88 3.00 06/29/16 17:14 102.2 06/29/16 16:44 102.2 06/29/16 16:00 103.3 110 20 158/88 95 Nasal Cannula 3.00 06/29/16 14:28 93 6.00 06/29/16 12:00 99.9 102 20 167/90 96 Nasal Cannula 3.00 06/29/16 10:33 95 6.00 06/29/16 08:00 98.5 108 20 148/88 97 Nasal Cannula 3.00 06/29/16 08:00 95 Nasal Cannula 3.00 I & O 06/30/16 07:00 Intake Total 3750 ml Balance 3750 ml Capillary Refill : Less Than 3 Seconds General Appearance: No Apparent Distress WD/WN HEENT: PERRL/EOMI Pharynx Normal Neck: Full Range of Motion Supple Respiratory: Chest Non Tender Lungs Clear Decreased Breath Sounds Cardiovascular: Regular Rate, Rhythm No Edema Gastrointestinal: normal bowel sounds non tender soft no organomegaly no pulsatile mass Neurologic/Psychiatric: Alert Oriented x3 No Motor/Sensory Deficits Normal Mood/Affect Lymphatic: No Adenopathy Results Lab Laboratory Tests 06/29/16 20:38: Glucometer 257H 06/30/16 05:34: Anion Gap 11, BUN/Creatinine Ratio 13, Basophils # (Auto) 0.0, Basophils (%) ( Auto) 0, Blood Urea Nitrogen 10, Calcium Level 8.7, Carbon Dioxide Level 26, Chloride Level 101, Creatinine 0.75, Eosinophils # (Auto) 0.0, Eosinophils (%) ( Auto) 0, Estimat Glomerular Filtration Rate > 60, Glucose Level 162H, Hematocrit 31L, Hemoglobin 9.4L, Lymphocytes # (Auto) 1.5, Lymphocytes (%) (Auto ) 16, Magnesium Level 1.8, Mean Corpuscular Hemoglobin 26, Mean Corpuscular Hemoglobin Concent 31L, Mean Corpuscular Volume 83, Mean Platelet Volume 10.4, Monocytes # (Auto) 0.7, Monocytes (%) (Auto) 8, Neutrophils # (Auto) 6.8, Neutrophils (%) (Auto) 75, Phosphorus Level 2.6, Platelet Count 231, Potassium Level 3.7, Red Blood Count 3.67L, Red Cell Distribution Width 14.8H, Sodium Level 138, White Blood Count 9.1 Microbiology 06/28/16 Blood Culture - Preliminary, Resulted No growth 06/28/16 Influenza Types A,B Antigen (ROBIN) - Final, Complete Assessment/Plan Assessment/Plan Assess & Plan/Chief Complaint SEPSIS PNEUMONIA LACTIC ACIDOSIS ATRIAL FIBRILLATION POST ABLATION HYPERTENSION DIABETES MELLITUS MORBID OBESITY MILD LEUKOCYTOSIS ELEVATED CRP NAUSEA WITH EMESIS SEPSIS - DUE TO PNEUMONIA - WITH LACTIC ACIDOSIS - LEVAQUIN AND AZTREONAM STARED DUE TO PT'S MULTIPLE OTHER ALLERGIES - IMPROVED - STOP AZTREONAM. MONITOR CHEST XRAY, LACTIC ACID LEVELS AND CONTINUE WITH PNEUMONIA PROTOCOL, STARTED PT'S HOME CPAP. IMPROVED ENOUGH TO TRANSFER DOWN TO 4TH FLOOR ATRIAL FIBRILLATION POST ABLATION - CONTINUE SUPPORTIVE CARE/TREATMENT HYPERTENSION - RESTARTED HOME MEDS DIABETES MELLITUS - RESTART HOME MEDS, CHECK FSBS MORBID OBESITY - COMPLICATES CARE DUE TO AIRWAY RESTRICTION FROM HER OBESITY MILD LEUKOCYTOSIS - MONITOR LABS ELEVATED CRP - FOLLOW SERIAL CRPS NAUSEA WITH EMESIS - PHENERGAN, ZOFRAN ORDERED. Diagnosis/Problems: Clinical Quality Measures DVT/VTE Risk/Contraindication: Risk Factor Score Per Nursin RFS Level Per Nursing on Admit: 4+=Very High DAISY JOHNSON MD Jun 30, 2016 07:18
[2016-06-30] MEDS: FAMOTIDINE 20MG/2ML IV (PEPCID) IVP SCH ×2 (08:39→20:25)
[2016-06-30] MEDS: LEVOFLOXACIN 750 MG/D5W 150 ML PRE-MIX IV SCH (08:39)
[2016-06-30] MEDS: GABAPENTIN 300 MG (NEURONTIN) CAP PO SCH ×3 (08:40→20:26)
[2016-06-30] MEDS: ASPIRIN E.C. 81 MG (ECOTRIN) TAB PO SCH (08:40)
[2016-06-30] MEDS: DULoxetine 30 MG (CYMBALTA) CAP PO SCH (08:40)
[2016-06-30] MEDS: FUROSEMIDE 40 MG (LASIX) TAB PO SCH ×2 (08:40→14:19)
[2016-06-30] MEDS: DILTIAZEM 240 MG (CARDIZEM CD) CAP PO SCH (08:40)
[2016-06-30] MEDS: LORATADINE (CLARITIN) 10 MG TAB PO SCH (08:41)
[2016-06-30] MEDS: APIXABAN 5 MG (ELIQUIS) TABLET PO SCH ×2 (08:41→20:27)
[2016-06-30] MEDS: inSUlin DETERMIR 1 UNIT/0.01 ML (LEVEMIR) CHARGE PER UNIT SQ SCH ×2 (08:41→20:26)
[2016-06-30] MEDS: GABAPENTIN 600 MG (NEURONTIN) TAB PO SCH ×3 (08:41→20:26)
[2016-06-30] MEDS: FLECAINIDE 100 MG (TAMBOCOR) TAB PO SCH ×2 (08:41→20:26)
[2016-06-30] MEDS: meTOprolol SUCCINATE 100 MG (TOPROL XL) TAB PO SCH ×2 (08:41→20:26)
[2016-06-30 08:42] VITALS: BP 134/89
[2016-06-30] MEDS: DICLOFENAC 1% GEL 100 GM (VOLTAREN) TUBE TOP SCH ×4 (08:52→20:26)
[2016-06-30] MEDS: KETOROLAC 15 MG/ML VIAL IVP PRN (08:52)
[2016-06-30 12:00] VITALS: BP 189/89
[2016-06-30] MEDS: ALPRAZolam 0.5 MG (XANAX) TAB PO PRN (14:32)
[2016-06-30 16:00] VITALS: BP 138/78
[2016-06-30 20:00] VITALS: BP 132/67
[2016-06-30] MEDS: rOPINIRole 1 MG (REQUIP) TABLET PO SCH (20:26)
[2016-06-30] MEDS: DIGOXIN 0.125 MG (LANOXIN) TAB PO SCH (20:26)
[2016-06-30] MEDS: MONTELUKAST 10 MG (SINGULAIR) TAB PO SCH (20:26)
[2016-06-30] MEDS: FLUTICASONE NASAL SPRAY (FLONASE) 16 GM BTL NS SCH (20:26)
[2016-06-30] MEDS: ACETAMINOPHEN 500 MG TAB (TYLENOL) PO PRN (20:27)
[2016-07-01] VITALS (7 sets, daily range): BP systolic 132–144; BP diastolic 59–77
[2016-07-01 04:40] LABS: BASOPHILS % (AUTO) 0 % (0-10); EOSINOPHILS # (AUTO) 0.2 10^3/uL (0.0-0.3); EOSINOPHILS % (AUTO) 2 % (0-10); LYMPHOCYTES # (AUTO) 1.7 X 10^3 (1.0-4.0); LYMPHOCYTES % (AUTO) 17 % (12-44); MEAN CORPUSCULAR HEMOGLOBIN 26 PG (25-34); MEAN CORPUSCULAR HGB CONC 31 G/DL (32-36); MEAN CORPUSCULAR VOLUME 84 FL (80-99); MEAN PLATELET VOLUME 10.6 FL (7.4-10.4); MONOCYTES # (AUTO) 0.9 X 10^3 (0.0-1.0); MONOCYTES % (AUTO) 9 % (0-12); NEUTROPHILS # (AUTO) 6.9 X 10^3 (1.8-7.8); NEUTROPHILS % (AUTO) 72 % (42-75); PLATELET COUNT 262 10^3/uL (130-400); RED BLOOD COUNT 3.51 10^6/uL (4.35-5.85); RED CELL DISTRIBUTION WIDTH 14.9 % (10.0-14.5); WHITE BLOOD COUNT 9.7 10^3/uL (4.3-11.0)
[2016-07-01 04:53] LABS: ANION GAP 13 MMOL/L (5-14); BLOOD UREA NITROGEN 13 MG/DL (7-18); BUN/CREATININE RATIO 16; CALCIUM 8.4 MG/DL (8.5-10.1); CARBON DIOXIDE 23 MMOL/L (21-32); CHLORIDE 103 MMOL/L (98-107); CREATININE SERUM 0.82 MG/DL (0.60-1.30); GFR ESTIMATED > 60; GLUCOSE 159 MG/DL (70-105); PHOSPHORUS 3.3 MG/DL (2.3-4.7); POTASSIUM 3.2 MMOL/L (3.6-5.0); SODIUM 139 MMOL/L (135-145)
[2016-07-01] MEDS: KCL 10 MEQ TAB (MICRO K) PO SCH (06:46)
[2016-07-01] MEDS: LEVOTHYROXINE 88 MCG (LEVOTHORID) TAB PO SCH (06:46)
[2016-07-01] MEDS ORDERED: KCL 20 MEQ TAB (K-DUR) PO NR (07:00)
--- NOTE | 2016-07-01 07:01 | Pulmonary Progress Note ---
Subjective Subjective/Events-last exam PT is feeling improved. Exam Exam Vital Signs Date Time Temp Pulse Resp B/P Pulse Ox O2 Delivery O2 Flow Rate FiO2 07/01/16 04:07 64 17 50.00 07/01/16 04:00 96.9 89 20 132/75 96 NIV/Bilevel 50.00 07/01/16 02:52 77 19 50.00 07/01/16 01:00 75 07/01/16 00:12 77 16 50.00 07/01/16 00:00 99.0 97 21 138/72 96 Nasal Cannula 3.00 06/30/16 22:43 90 21 98 50.00 06/30/16 20:00 101.1 96 21 132/67 96 Nasal Cannula 3.00 06/30/16 20:00 95 Nasal Cannula 3.00 06/30/16 19:52 96 3.00 06/30/16 19:00 96 06/30/16 16:00 98.7 96 18 138/78 97 Nasal Cannula 3.00 06/30/16 14:53 95 3.00 06/30/16 14:49 97.7 06/30/16 14:19 97.7 06/30/16 13:00 86 06/30/16 12:00 99.9 94 22 189/89 99 Nasal Cannula 3.00 06/30/16 09:52 92 3.00 06/30/16 09:22 97.7 06/30/16 08:42 97.7 95 22 134/89 95 Nasal Cannula 3.00 06/30/16 08:00 95 Nasal Cannula 3.00 06/30/16 07:00 88 I & O 07/01/16 07:00 Intake Total 3550 ml Balance 3550 ml General Appearance: No Apparent Distress WD/WN HEENT: PERRL/EOMI Pharynx Normal Neck: Full Range of Motion Supple Respiratory: Chest Non Tender Lungs Clear Decreased Breath Sounds Cardiovascular: Regular Rate, Rhythm No Edema Capillary Refill: Less Than 3 Seconds Gastrointestinal: normal bowel sounds non tender soft no organomegaly no pulsatile mass Extremity: Non Tender Swelling (mild lower extremity edema equal bilaterally) Neurologic/Psychiatric: Alert Oriented x3 No Motor/Sensory Deficits Normal Mood/Affect Skin: Normal Color Warm/Dry Lymphatic: No Adenopathy Results Lab Laboratory Tests 06/30/16 05:34 07/01/16 03:48 Assessment/Plan Assessment/Plan Pneumonia with sepsis - Pt spiked a fever of 101.1 last night -Aztreonam just stopped yesterday -Levaquin and restart aztreonam for now -Repeat influenza swab -await sensitivities from GC -Pt is cardiac step down status -BiPAP PRN Bacteremia - GNR -awaiting sensitivities Hypokalemia -replace hx of Afib s/p ablation Obesity SANAZ -will need to check CPAP down load as out patient asthma - stable Clinical Quality Measures DVT/VTE Risk/Contraindication: Risk Factor Score Per Nursin RFS Level Per Nursing on Admit: 4+=Very High ZIA WU DO Jul 01, 2016 07:01
[2016-07-01] MEDS: RT-ALBUTEROL/IPRATROPIUM 3 ML (DUONEB) VIAL INH SCH ×3 (07:02→20:16)
[2016-07-01] MEDS ORDERED: AZTREONAM INJECTION 2,000 MG in NS (IVPB) 100 ML IV SCH (07:19)
[2016-07-01] MEDS ORDERED: SILVER NITRATE APPLICATOR 1 PKT TP NR (10:00)
[2016-07-01] MEDS: ACETAMINOPHEN 500 MG TAB (TYLENOL) PO PRN (11:22)
[2016-07-01] MEDS: inSUlin DETERMIR 1 UNIT/0.01 ML (LEVEMIR) CHARGE PER UNIT SQ SCH ×2 (11:22→21:22)
[2016-07-01] MEDS: meTOprolol SUCCINATE 100 MG (TOPROL XL) TAB PO SCH ×2 (11:22→21:20)
[2016-07-01] MEDS: FUROSEMIDE 40 MG (LASIX) TAB PO SCH ×2 (11:23→13:45)
[2016-07-01] MEDS: GABAPENTIN 300 MG (NEURONTIN) CAP PO SCH ×3 (11:23→21:21)
[2016-07-01] MEDS: DILTIAZEM 240 MG (CARDIZEM CD) CAP PO SCH (11:23)
[2016-07-01] MEDS: DULoxetine 30 MG (CYMBALTA) CAP PO SCH (11:23)
[2016-07-01] MEDS: LORATADINE (CLARITIN) 10 MG TAB PO SCH (11:23)
[2016-07-01] MEDS: FLECAINIDE 100 MG (TAMBOCOR) TAB PO SCH ×2 (11:23→21:21)
[2016-07-01] MEDS: NS IV 1000 ML 1,000 ML IV SCH ×2 (11:24→21:23)
[2016-07-01] MEDS: ASPIRIN E.C. 81 MG (ECOTRIN) TAB PO SCH (11:24)
[2016-07-01] MEDS: FAMOTIDINE 20MG/2ML IV (PEPCID) IVP SCH ×2 (11:24→21:21)
[2016-07-01] MEDS: APIXABAN 5 MG (ELIQUIS) TABLET PO SCH ×2 (11:24→21:21)
[2016-07-01] MEDS: DICLOFENAC 1% GEL 100 GM (VOLTAREN) TUBE TOP SCH ×4 (11:31→21:23)
[2016-07-01] MEDS: GABAPENTIN 600 MG (NEURONTIN) TAB PO SCH ×3 (11:31→21:21)
[2016-07-01] MEDS: LEVOFLOXACIN 750 MG/D5W 150 ML PRE-MIX IV SCH (11:31)
[2016-07-01] MEDS ORDERED: LEVO500T2 PO (13:38)
--- NOTE | 2016-07-01 13:40 | Discharge Inst-Complex ---
PDI Med Rec & Follow Up Appt. New Medications: Levofloxacin (Levaquin) 500 Mg Tablet 500 MG PO DAILY #5 TAB Continued Medications: Acetaminophen (Tylenol Extra Strength) 500 Mg Tablet 500-1000 MG PO Q6H PRN SHORTNESS OF BREATH TAB Albuterol Sulfate (Proair Hfa) 8.5 Gm Hfa.aer.ad 2 PUFF INH Q4H PRN SHORTNESS OF BREATH INHALER Alprazolam (Alprazolam) 0.5 Mg Tablet 0.5 MG PO TID PRN ANXIETY TAB Apixaban (Eliquis) 5 Mg Tablet 5 MG PO BID TAB Aspirin ([place] Aspirin) 81 Mg Tablet.dr 81 MG PO DAILY TAB Budesonide (Budesonide) 0.5 Mg/2 Ml Ampul.neb 1 VIAL NEB BID PRN SHORTNESS OF BREATH EA Colesevelam HCl (Welchol) 625 Mg Tablet 1875 MG PO BID TAKES 3 (625MG) TABLETS TAB Colestipol HCl (Colestipol HCl) 1 Gm Tablet 1 GM PO BID TAB Cyclobenzaprine HCl (Cyclobenzaprine HCl) 10 Mg Tablet 10 MG PO BID LAST FILLED #60 16 PRN MUSCLE SPASMS TAB Digoxin (Digoxin) 125 Mcg Tablet 125 MCG PO HS TAB Diltiazem HCl (Cartia Xt) 240 Mg Cap.er.24h 240 MG PO DAILY CAP Duloxetine HCl (Duloxetine HCl) 60 Mg Capsule.dr 60 MG PO DAILY CAP Fexofenadine Hcl (Carolyn) 180 Mg Tablet 180 MG PO DAILY TAB Flecainide Acetate (Flecainide Acetate) 100 Mg Tablet 100 MG PO BID TAB Fluticasone Propionate (Fluticasone Propionate) 16 Gm [place].susp 1 SPRAY NS HS EA Furosemide (Furosemide) 40 Mg Tablet 40 MG PO 1000,1500 TAB Gabapentin (Gabapentin) 600 Mg Tablet 900 MG PO TID TAKES 1 & 1/2 (600MG) TABLETS TAB Hydrocodone/Acetaminophen (Hydrocodon-Acetaminophn 10-325) 1 Each Tablet 1 TAB PO Q6H PRN PAIN TAB Hydrocortisone (Proctosol-Hc) 28.35 Gm Cream.appl TOP TID PRN HEMORRHOIDS EA Insulin Detemir (Levemir Flextouch) 100 Unit/1 Ml Insuln.pen 35 UNITS SC DAILY EA Insulin Detemir (Levemir Flextouch) 100 Unit/1 Ml Insuln.pen 30 UNIT SQ HS EA Levothyroxine Sodium (Levothyroxine Sodium) 88 Mcg Tablet 88 MCG PO DAILY TAB Metoprolol Succinate (Metoprolol Succinate) 100 Mg Tab.er.24h 100 MG PO BID TAB Montelukast Sodium (Montelukast Sodium) 10 Mg Tablet 10 MG PO HS TAB Ondansetron HCl (Ondansetron HCl) 4 Mg Tablet 4 MG PO Q4H PRN NAUSEA/VOMITING TAB Pantoprazole Sodium (Pantoprazole Sodium) 40 Mg Tablet.dr 40 MG PO BID TAB Potassium Chloride (Potassium Chloride) 10 Meq Tablet.er 10 MEQ PO DAILY TAB Promethazine HCl (Promethazine Tablet) 25 Mg Tablet 25 MG PO Q8H PRN NAUSEA/VOMITING TAB Ropinirole HCl (Ropinirole HCl) 1 Mg Tablet 0.5-1 MG PO HS STATES SHE SOMETIMES ONLY TAKES 1/2 (1MG) TABLET TAB Sucralfate (Carafate) 1 Gm Tablet 1 GM PO ACHS PRN STOMACH UPSET TAB Discontinued Medications: Doxycycline Hyclate (Doxycycline Hyclate) 100 Mg Tablet 100 MG PO BID 10 DAY SUPPLY FILLED 2-3-17 Days 10 TAB Prescription: Other ( called to [facility]) Activity, Diet and PDI Resume Normal Activity: Yes Discharge Diet: ADA Diet Diet for 24 Hours: No Alcohol, No [place] [employer] Diet After 24 Hours: Clear Liquid if Nauseous Drink 6-8 Glasses of Fluid/Day: Yes Driving Instructions: No Driving for 24 Hours Symptoms to Reoprt to : Appetite Changes, Fever Over 101 Degrees F, Pain/ Pressure in Chest, Urination Difficulty, Cough Up/Vomit Blood, Diarrhea( Persistant), Shortness of Breath For Problems or Questions: Contact Your Physician, Go to Emergency Room DAISY JOHNSON MD Jul 01, 2016 13:40
[2016-07-01] MEDS ORDERED: diphenhydrAMINE 25 MG TAB (BENADRYL) PO NR (13:45)
[2016-07-01] MEDS ORDERED: ACETAMINOPHEN 500 MG TAB (TYLENOL) PO NR (13:45)
--- NOTE | 2016-07-01 13:45 | Progress Note (SOAP) ---
Subjective Subjective/Events-last exam PT REPORTS THAT SHE IS FEELING FATIGUED THIS MORNING, HAS A NOSE-BLEED AND THINKS THAT IS PART OF THE TROUBLE WITH HER FEELING POORLY AND COUGHING UP SOME BLOOD. THE PATIENT REPORTS THAT SHE STILL HAS SOME ABDOMINAL DISCOMFORT, IN HER LOWER ABDOMEN AND ACROSS HER LOWER BACK Review of Systems General: Fatigue HEENT: No Head Aches, Other (EPISTAXIS) Pulmonary: Dyspnea Cough Cardiovascular: No: Chest Pain, Palpitations Gastrointestinal: No: Diarrhea, Nausea Genitourinary: No Dysuria Musculoskeletal: : back pain Neurological: No: Confusion, Weakness Objective Exam Vital Signs Date Time Temp Pulse Resp B/P Pulse Ox O2 Delivery O2 Flow Rate FiO2 07/01/16 12:00 98.5 Room Air 07/01/16 12:00 95 Nasal Cannula 3.00 07/01/16 11:02 94 07/01/16 11:02 94 3.00 07/01/16 08:00 95 Nasal Cannula 3.00 07/01/16 08:00 98.2 75 18 132/65 95 Room Air 07/01/16 07:02 70 13 40.00 07/01/16 07:00 70 07/01/16 04:07 64 17 50.00 07/01/16 04:00 96.9 89 20 132/75 96 NIV/Bilevel 50.00 07/01/16 02:52 77 19 50.00 07/01/16 01:00 75 07/01/16 00:12 77 16 50.00 07/01/16 00:00 99.0 97 21 138/72 96 Nasal Cannula 3.00 06/30/16 22:43 90 21 98 50.00 06/30/16 20:00 101.1 96 21 132/67 96 Nasal Cannula 3.00 06/30/16 20:00 95 Nasal Cannula 3.00 06/30/16 19:52 96 3.00 06/30/16 19:00 96 06/30/16 16:00 98.7 96 18 138/78 97 Nasal Cannula 3.00 06/30/16 14:53 95 3.00 06/30/16 14:49 97.7 06/30/16 14:19 97.7 I & O 07/01/16 07:00 Intake Total 3550 ml Balance 3550 ml Capillary Refill : Less Than 3 Seconds General Appearance: No Apparent Distress WD/WN HEENT: PERRL/EOMI Other (LEFT NOSTRIL BLEEDING - CAUTERIZED WITH A SILVER NITRATE STICK X 1 - TOLERATED BY PATIENT) Neck: Full Range of Motion Supple Respiratory: Chest Non Tender Lungs Clear Normal Breath Sounds No Accessory Muscle Use Cardiovascular: Regular Rate, Rhythm Gastrointestinal: normal bowel sounds non tender soft Extremity: No Pedal Edema Neurologic/Psychiatric: Alert Oriented x3 No Motor/Sensory Deficits Normal Mood/Affect Skin: Warm/Dry Lymphatic: No Adenopathy Results Lab Laboratory Tests 06/30/16 20:16: Glucometer 252H 07/01/16 03:48: Anion Gap 13, BUN/Creatinine Ratio 16, Basophils # (Auto) 0.0, Basophils (%) ( Auto) 0, Blood Urea Nitrogen 13, Calcium Level 8.4L, Carbon Dioxide Level 23, Chloride Level 103, Creatinine 0.82, Eosinophils # (Auto) 0.2, Eosinophils (%) ( Auto) 2, Estimat Glomerular Filtration Rate > 60, Glucose Level 159H, Hematocrit 30L, Hemoglobin 9.0L, Lymphocytes # (Auto) 1.7, Lymphocytes (%) (Auto ) 17, Magnesium Level 2.0, Mean Corpuscular Hemoglobin 26, Mean Corpuscular Hemoglobin Concent 31L, Mean Corpuscular Volume 84, Mean Platelet Volume 10.6H, Monocytes # (Auto) 0.9, Monocytes (%) (Auto) 9, Neutrophils # (Auto) 6.9, Neutrophils (%) (Auto) 72, Phosphorus Level 3.3, Platelet Count 262, Potassium Level 3.2L, Red Blood Count 3.51L, Red Cell Distribution Width 14.9H, Sodium Level 139, White Blood Count 9.7 Microbiology 06/28/16 Blood Culture - Preliminary, Resulted Escherichia Coli 06/28/16 Influenza Types A,B Antigen (ROBIN) - Final, Complete Assessment/Plan Assessment/Plan Assess & Plan/Chief Complaint SEPSIS PNEUMONIA LACTIC ACIDOSIS ATRIAL FIBRILLATION POST ABLATION HYPERTENSION DIABETES MELLITUS MORBID OBESITY MILD LEUKOCYTOSIS ELEVATED CRP NAUSEA WITH EMESIS EPISTAXIS IRON DEFICIENCY SEPSIS - DUE TO PNEUMONIA AND ECOLI ON BLOOD CULTURE - WITH LACTIC ACIDOSIS - LEVAQUIN AND AZTREONAM STARED DUE TO PT'S MULTIPLE OTHER ALLERGIES - IMPROVED - STOP AZTREONAM. STARTED PT'S HOME CPAP. - RX FOR LEVAQUIN CALLED TO THE PHARMACY FOR ANOTHER 5 DAYS OF TREATMENT POST-DISCHARGE. IMPROVED ENOUGH TO TRANSFER DOWN TO 4TH FLOOR ATRIAL FIBRILLATION POST ABLATION - CONTINUE SUPPORTIVE CARE/TREATMENT HYPERTENSION - RESTARTED HOME MEDS DIABETES MELLITUS - RESTART HOME MEDS, CHECK FSBS MORBID OBESITY - COMPLICATES CARE DUE TO AIRWAY RESTRICTION FROM HER OBESITY MILD LEUKOCYTOSIS - RESOLVED NAUSEA WITH EMESIS - IMPROVED - PHENERGAN, ZOFRAN ORDERED. EPISTAXIS - LEFT NARE - CAUTERIZED WITH SILVER NITRATE STICK. IRON DEFICIENCY - GIVE DOSE OF IV IRON X 1 Diagnosis/Problems: Clinical Quality Measures DVT/VTE Risk/Contraindication: Risk Factor Score Per Nursin RFS Level Per Nursing on Admit: 4+=Very High DAISY JOHNSON MD Jul 01, 2016 13:45
[2016-07-01] MEDS: HYDROcodone/APAP 10 MG/325 MG (LORTAB) TAB PO PRN ×2 (13:46→21:20)
[2016-07-01] MEDS: IRON SUCROSE INJECTION 200 MG in NS (IVPB) 100 ML IV SCH (17:16)
[2016-07-01] MEDS: FLUTICASONE NASAL SPRAY (FLONASE) 16 GM BTL NS SCH (21:00)
[2016-07-01] MEDS: rOPINIRole 1 MG (REQUIP) TABLET PO SCH (21:20)
[2016-07-01] MEDS: DIGOXIN 0.125 MG (LANOXIN) TAB PO SCH (21:20)
[2016-07-01] MEDS: MONTELUKAST 10 MG (SINGULAIR) TAB PO SCH (21:21)
[2016-07-01] MEDS: ALPRAZolam 0.5 MG (XANAX) TAB PO PRN (22:45)
[2016-07-02] VITALS: BP 138/67
[2016-07-02 04:00] VITALS: BP 164/74
[2016-07-02 06:10] LABS: BASOPHILS % (AUTO) 0 % (0-10); EOSINOPHILS # (AUTO) 0.3 10^3/uL (0.0-0.3); EOSINOPHILS % (AUTO) 3 % (0-10); LYMPHOCYTES # (AUTO) 1.4 X 10^3 (1.0-4.0); LYMPHOCYTES % (AUTO) 17 % (12-44); MEAN CORPUSCULAR HEMOGLOBIN 26 PG (25-34); MEAN CORPUSCULAR HGB CONC 30 G/DL (32-36); MEAN CORPUSCULAR VOLUME 85 FL (80-99); MEAN PLATELET VOLUME 10.2 FL (7.4-10.4); MONOCYTES # (AUTO) 0.7 X 10^3 (0.0-1.0); MONOCYTES % (AUTO) 8 % (0-12); NEUTROPHILS % (AUTO) 72 % (42-75); PLATELET COUNT 296 10^3/uL (130-400); RED BLOOD COUNT 3.57 10^6/uL (4.35-5.85); RED CELL DISTRIBUTION WIDTH 14.9 % (10.0-14.5); WHITE BLOOD COUNT 8.4 10^3/uL (4.3-11.0)
[2016-07-02] MEDS: KCL 10 MEQ TAB (MICRO K) PO SCH (06:20)
[2016-07-02] MEDS: LEVOTHYROXINE 88 MCG (LEVOTHORID) TAB PO SCH (06:20)
[2016-07-02 06:45] LABS: ANION GAP 10 MMOL/L (5-14); BLOOD UREA NITROGEN 15 MG/DL (7-18); BUN/CREATININE RATIO 21; CALCIUM 8.4 MG/DL (8.5-10.1); CARBON DIOXIDE 26 MMOL/L (21-32); CHLORIDE 105 MMOL/L (98-107); CREATININE SERUM 0.73 MG/DL (0.60-1.30); GFR ESTIMATED > 60; GLUCOSE 107 MG/DL (70-105); PHOSPHORUS 3.7 MG/DL (2.3-4.7); POTASSIUM 3.6 MMOL/L (3.6-5.0); SODIUM 141 MMOL/L (135-145)
[2016-07-02 08:00] VITALS: BP 138/79
[2016-07-02] MEDS: DULoxetine 30 MG (CYMBALTA) CAP PO SCH (08:16)
[2016-07-02] MEDS: GABAPENTIN 300 MG (NEURONTIN) CAP PO SCH ×3 (08:16→21:22)
[2016-07-02] MEDS: DILTIAZEM 240 MG (CARDIZEM CD) CAP PO SCH (08:17)
[2016-07-02] MEDS: ASPIRIN E.C. 81 MG (ECOTRIN) TAB PO SCH (08:17)
[2016-07-02] MEDS: FLECAINIDE 100 MG (TAMBOCOR) TAB PO SCH ×2 (08:17→21:22)
[2016-07-02] MEDS: APIXABAN 5 MG (ELIQUIS) TABLET PO SCH ×2 (08:17→21:22)
[2016-07-02] MEDS: HYDROcodone/APAP 10 MG/325 MG (LORTAB) TAB PO PRN ×2 (08:17→15:08)
[2016-07-02] MEDS: LORATADINE (CLARITIN) 10 MG TAB PO SCH (08:17)
[2016-07-02] MEDS: meTOprolol SUCCINATE 100 MG (TOPROL XL) TAB PO SCH ×2 (08:17→21:22)
[2016-07-02] MEDS: ALPRAZolam 0.5 MG (XANAX) TAB PO PRN ×2 (08:17→21:55)
[2016-07-02] MEDS: GABAPENTIN 600 MG (NEURONTIN) TAB PO SCH ×3 (08:17→21:22)
[2016-07-02] MEDS: inSUlin DETERMIR 1 UNIT/0.01 ML (LEVEMIR) CHARGE PER UNIT SQ SCH ×2 (08:18→21:21)
[2016-07-02] MEDS: LEVOFLOXACIN 750 MG/D5W 150 ML PRE-MIX IV SCH (08:18)
[2016-07-02] MEDS: NS IV 1000 ML 1,000 ML IV SCH (08:18)
[2016-07-02] MEDS: FAMOTIDINE 20MG/2ML IV (PEPCID) IVP SCH ×2 (08:18→21:21)
[2016-07-02] MEDS: RT-ALBUTEROL/IPRATROPIUM 3 ML (DUONEB) VIAL INH SCH ×3 (08:50→19:57)
--- NOTE | 2016-07-02 09:17 | Progress Note (SOAP) ---
Subjective Subjective/Events-last exam 66 yo F cc: respiratory distress, pneumonia pt reports a little more nose bleeding but has stopped on its own. Also has tongue/mouth pain that resolves with nystatin. Pt feels weak and does not think she will be ready to go home tomorrow. at her side. Pt was crocheting a blanket this AM. Review of Systems General: No Chills, No Night Sweats HEENT: No Head Aches, No Visual Changes Pulmonary: Dyspnea Cough Cardiovascular: : Chest Pain: Palpitations (with ambulation) Gastrointestinal: : Abdominal Pain (lower belly)No: Nausea, Vomiting Genitourinary: No Dysuria, No Frequency Musculoskeletal: No: neck pain, shoulder pain Neurological: : Weakness Objective Exam Vital Signs Date Time Temp Pulse Resp B/P Pulse Ox O2 Delivery O2 Flow Rate FiO2 07/02/16 08:50 95 3.00 07/02/16 04:35 16 40.00 07/02/16 04:00 97.3 81 24 164/74 94 NIV/Bilevel 07/02/16 02:34 74 16 99 45.00 07/02/16 01:16 73 07/02/16 00:15 75 17 100 45.00 07/02/16 00:00 97.7 75 18 138/67 100 NIV/Bilevel 07/01/16 20:16 97 3.00 07/01/16 20:00 Nasal Cannula 3.00 07/01/16 20:00 97.4 80 22 133/59 100 Nasal Cannula 3.00 07/01/16 19:00 84 07/01/16 16:55 95 Nasal Cannula 3.00 07/01/16 16:49 98.0 07/01/16 16:00 98.0 Nasal Cannula 3.00 07/01/16 13:00 78 07/01/16 13:00 144/77 Room Air 07/01/16 12:00 98.5 Nasal Cannula 3.00 07/01/16 12:00 95 Nasal Cannula 3.00 07/01/16 11:30 132/66 Room Air 07/01/16 11:02 94 07/01/16 11:02 94 3.00 I & O 07/02/16 07:00 Intake Total 1400 ml Balance 1400 ml Capillary Refill : Less Than 3 Seconds General Appearance: Mild Distress (respiratory) HEENT: PERRL/EOMI (dysconjugate gaze) Neck: Non Tender Supple Respiratory: Chest Non Tender No Accessory Muscle Use Crackles (left base > right, rhonchi throughout) Cardiovascular: Other (irregular rhythm, regular rate) Gastrointestinal: normal bowel sounds soft Extremity: Pedal Edema Neurologic/Psychiatric: Alert Oriented x3 Normal Mood/Affect Skin: Warm/Dry Results Lab Laboratory Tests 07/01/16 11:20: Glucometer 235H 07/01/16 20:50: Glucometer 190H 07/02/16 06:00: Anion Gap 10, BUN/Creatinine Ratio 21, Basophils # (Auto) 0.0, Basophils (%) ( Auto) 0, Blood Urea Nitrogen 15, Calcium Level 8.4L, Carbon Dioxide Level 26, Chloride Level 105, Creatinine 0.73, Eosinophils # (Auto) 0.3, Eosinophils (%) ( Auto) 3, Estimat Glomerular Filtration Rate > 60, Glucose Level 107H, Hematocrit 30L, Hemoglobin 9.1L, Lymphocytes # (Auto) 1.4, Lymphocytes (%) (Auto ) 17, Magnesium Level 2.0, Mean Corpuscular Hemoglobin 26, Mean Corpuscular Hemoglobin Concent 30L, Mean Corpuscular Volume 85, Mean Platelet Volume 10.2, Monocytes # (Auto) 0.7, Monocytes (%) (Auto) 8, Neutrophils # (Auto) 6.0, Neutrophils (%) (Auto) 72, Phosphorus Level 3.7, Platelet Count 296, Potassium Level 3.6, Red Blood Count 3.57L, Red Cell Distribution Width 14.9H, Sodium Level 141, White Blood Count 8.4 Microbiology 06/28/16 Blood Culture - Preliminary, Resulted Escherichia Coli 06/28/16 Influenza Types A,B Antigen (ROBIN) - Final, Complete Assessment/Plan Assessment/Plan Assess & Plan/Chief Complaint 66 yo F sepsis secondary to respiratory source- Pneumonia - continue levoquin. on 3L oxygen NC- baseline at home is 2L oxygen Bacteremia- e.coli- if afebrile 48hours will switch levoquin to po and monitor a day- then home h/o afib post ablation April 2016- digoxin, flecainide, eliquis 5mg epistaxis- cauterized with silver nitrate- Iron deficiency anemia- s/p Fe infusion 07/01/16- hgb stable also on venofer diabetes mellitus- levemir 30units daily, 35units qhs obesity- worsens any respiratory issues- recommend weight loss obstructive sleep apnea- cpap hypothyroidism- continue levothyroxine 88mcg mouth pain- nystatin swish/spit Dispo: D/c IVF- as pt is more edematous- plan to switch to po levoquin tomorrow - if pt remains afebrile potential d/c to home -pt and her wanting to go home Monday. She does not feel ready from a respiratory standpoint. pt would complete 5 more days of levoquin po for her bacteremia. Diagnosis/Problems: Clinical Quality Measures DVT/VTE Risk/Contraindication: Risk Factor Score Per Nursin RFS Level Per Nursing on Admit: 4+=Very High IRENE LYLES MD Jul 02, 2016 09:16
[2016-07-02] MEDS: DICLOFENAC 1% GEL 100 GM (VOLTAREN) TUBE TOP SCH ×4 (09:29→21:22)
[2016-07-02] MEDS: FUROSEMIDE 40 MG (LASIX) TAB PO SCH ×2 (09:29→15:08)
[2016-07-02 12:00] VITALS: BP 122/58
[2016-07-02 16:00] VITALS: BP 136/82
[2016-07-02] MEDS: NYSTATIN ORAL SUSP 5 ML UDC PO SCH ×2 (17:11→23:30)
[2016-07-02 20:00] VITALS: BP 140/71
[2016-07-02] MEDS: DIGOXIN 0.125 MG (LANOXIN) TAB PO SCH (21:21)
[2016-07-02] MEDS: MONTELUKAST 10 MG (SINGULAIR) TAB PO SCH (21:22)
[2016-07-02] MEDS: rOPINIRole 1 MG (REQUIP) TABLET PO SCH (21:22)
[2016-07-02] MEDS: FLUTICASONE NASAL SPRAY (FLONASE) 16 GM BTL NS SCH (21:22)
[2016-07-03] VITALS: BP 134/79
[2016-07-03 04:00] VITALS: BP 135/80
[2016-07-03 04:37] LABS: BASOPHILS % (AUTO) 0 % (0-10); EOSINOPHILS # (AUTO) 0.3 10^3/uL (0.0-0.3); EOSINOPHILS % (AUTO) 3 % (0-10); LYMPHOCYTES # (AUTO) 1.6 X 10^3 (1.0-4.0); LYMPHOCYTES % (AUTO) 15 % (12-44); MEAN CORPUSCULAR HEMOGLOBIN 25 PG (25-34); MEAN CORPUSCULAR HGB CONC 30 G/DL (32-36); MEAN CORPUSCULAR VOLUME 84 FL (80-99); MONOCYTES # (AUTO) 0.8 X 10^3 (0.0-1.0); MONOCYTES % (AUTO) 7 % (0-12); NEUTROPHILS % (AUTO) 75 % (42-75); PLATELET COUNT 337 10^3/uL (130-400); RED BLOOD COUNT 3.77 10^6/uL (4.35-5.85); RED CELL DISTRIBUTION WIDTH 14.9 % (10.0-14.5); WHITE BLOOD COUNT 10.6 10^3/uL (4.3-11.0)
[2016-07-03 04:59] LABS: ANION GAP 12 MMOL/L (5-14); BLOOD UREA NITROGEN 14 MG/DL (7-18); BUN/CREATININE RATIO 18; CALCIUM 8.5 MG/DL (8.5-10.1); CARBON DIOXIDE 27 MMOL/L (21-32); CHLORIDE 101 MMOL/L (98-107); CREATININE SERUM 0.77 MG/DL (0.60-1.30); GFR ESTIMATED > 60; GLUCOSE 137 MG/DL (70-105); MAGNESIUM 1.8 MG/DL (1.8-2.4); PHOSPHORUS 3.7 MG/DL (2.3-4.7); POTASSIUM 3.6 MMOL/L (3.6-5.0); SODIUM 140 MMOL/L (135-145)
[2016-07-03] MEDS: NYSTATIN ORAL SUSP 5 ML UDC PO SCH ×4 (05:34→23:06)
[2016-07-03] MEDS: LEVOTHYROXINE 88 MCG (LEVOTHORID) TAB PO SCH (05:34)
[2016-07-03] MEDS: ONDANSETRON 4 MG/2 ML (SDV) Z0FRAN IVP PRN ×3 (05:49→13:09)
[2016-07-03] MEDS: KCL 10 MEQ TAB (MICRO K) PO SCH (06:06)
[2016-07-03] MEDS: HYDROcodone/APAP 10 MG/325 MG (LORTAB) TAB PO PRN ×3 (06:06→22:49)
[2016-07-03] MEDS: FAMOTIDINE 20MG/2ML IV (PEPCID) IVP SCH ×2 (09:37→20:37)
[2016-07-03] MEDS: LORATADINE (CLARITIN) 10 MG TAB PO SCH (09:37)
[2016-07-03] MEDS: DILTIAZEM 240 MG (CARDIZEM CD) CAP PO SCH (09:38)
[2016-07-03] MEDS: ASPIRIN E.C. 81 MG (ECOTRIN) TAB PO SCH (09:38)
[2016-07-03] MEDS: DULoxetine 30 MG (CYMBALTA) CAP PO SCH (09:38)
[2016-07-03] MEDS: GABAPENTIN 600 MG (NEURONTIN) TAB PO SCH ×3 (09:38→20:36)
[2016-07-03] MEDS: FLECAINIDE 100 MG (TAMBOCOR) TAB PO SCH ×2 (09:38→20:36)
[2016-07-03] MEDS: meTOprolol SUCCINATE 100 MG (TOPROL XL) TAB PO SCH ×2 (09:38→20:36)
[2016-07-03] MEDS: GABAPENTIN 300 MG (NEURONTIN) CAP PO SCH ×3 (09:38→20:37)
[2016-07-03] MEDS: FUROSEMIDE 40 MG (LASIX) TAB PO SCH ×2 (09:38→15:44)
[2016-07-03] MEDS: inSUlin DETERMIR 1 UNIT/0.01 ML (LEVEMIR) CHARGE PER UNIT SQ SCH ×2 (09:38→22:16)
[2016-07-03] MEDS: LEVOFLOXACIN 750 MG/D5W 150 ML PRE-MIX IV SCH (09:39)
[2016-07-03] MEDS: DICLOFENAC 1% GEL 100 GM (VOLTAREN) TUBE TOP SCH ×4 (09:39→20:36)
[2016-07-03] MEDS: ACETAMINOPHEN 500 MG TAB (TYLENOL) PO PRN (09:48)
[2016-07-03] MEDS: APIXABAN 5 MG (ELIQUIS) TABLET PO SCH ×2 (09:48→20:36)
[2016-07-03] MEDS: ALPRAZolam 0.5 MG (XANAX) TAB PO PRN ×2 (09:49→20:36)
[2016-07-03] MEDS: RT-ALBUTEROL/IPRATROPIUM 3 ML (DUONEB) VIAL INH SCH ×3 (10:23→19:53)
--- NOTE | 2016-07-03 11:41 | Progress Note (SOAP) ---
Subjective Subjective/Events-last exam 66 yo F with bacteremia, pneumonia- reports she does not feel the best, feels weak and wants to go home tomorrow. She did have 100.5F this AM. Also notes a little more bleeding of her left nares- Tolerating po well except the food is not very appetizing. Review of Systems General: No Chills, No Night Sweats HEENT: No Head Aches Pulmonary: No Dyspnea, Cough Other (nose bleed) Cardiovascular: No: Chest Pain, Palpitations Gastrointestinal: No: Abdominal Pain, Nausea, Vomiting Genitourinary: No Dysuria Musculoskeletal: No: neck pain, shoulder pain Neurological: : Weakness Objective Exam Vital Signs Date Time Temp Pulse Resp B/P Pulse Ox O2 Delivery O2 Flow Rate FiO2 07/03/16 10:23 96 3.00 07/03/16 09:48 100.5 07/03/16 04:08 82 18 99 40.00 07/03/16 04:00 97.7 74 16 135/80 100 NIV/Bilevel 07/03/16 02:03 76 21 99 40.00 07/03/16 01:00 79 07/03/16 00:00 98.6 83 16 134/79 100 NIV/Bilevel 07/02/16 23:55 66 22 99 40.00 07/02/16 22:20 86 21 99 40.00 07/02/16 20:00 97.9 83 22 140/71 99 Nasal Cannula 3.00 07/02/16 20:00 Nasal Cannula 40.00 07/02/16 19:57 98 3.00 07/02/16 19:00 84 07/02/16 16:00 97.1 79 20 136/82 100 Nasal Cannula 3.00 07/02/16 15:15 95 3.00 07/02/16 12:00 97.5 75 20 122/58 99 NIV/Bilevel I & O 07/03/16 07:00 Intake Total 4544 ml Output Total 1600 ml Balance 2944 ml Capillary Refill : Less Than 3 Seconds General Appearance: No Apparent Distress HEENT: PERRL/EOMI Other (no active bleed- small amount of red area where the silver nitrate scab is starting to lift off.) Neck: Non Tender Supple Respiratory: Chest Non Tender No Accessory Muscle Use No Respiratory Distress Decreased Breath Sounds (bases) Wheezing (occassional) Cardiovascular: Regular Rate, Rhythm Gastrointestinal: normal bowel sounds non tender soft Extremity: Pedal Edema Neurologic/Psychiatric: Alert Oriented x3 No Motor/Sensory Deficits Normal Mood/Affect Skin: Warm/Dry Results Lab Laboratory Tests 07/02/16 14:49: Glucometer 205H 07/02/16 16:02: Glucometer 181H 07/02/16 21:18: Glucometer 184H 07/03/16 04:02: Anion Gap 12, BUN/Creatinine Ratio 18, Basophils # (Auto) 0.0, Basophils (%) ( Auto) 0, Blood Urea Nitrogen 14, Calcium Level 8.5, Carbon Dioxide Level 27, Chloride Level 101, Creatinine 0.77, Eosinophils # (Auto) 0.3, Eosinophils (%) ( Auto) 3, Estimat Glomerular Filtration Rate > 60, Glucose Level 137H, Hematocrit 32L, Hemoglobin 9.4L, Lymphocytes # (Auto) 1.6, Lymphocytes (%) (Auto ) 15, Magnesium Level 1.8, Mean Corpuscular Hemoglobin 25, Mean Corpuscular Hemoglobin Concent 30L, Mean Corpuscular Volume 84, Mean Platelet Volume 10.0, Monocytes # (Auto) 0.8, Monocytes (%) (Auto) 7, Neutrophils # (Auto) 8.0H, Neutrophils (%) (Auto) 75, Phosphorus Level 3.7, Platelet Count 337, Potassium Level 3.6, Red Blood Count 3.77L, Red Cell Distribution Width 14.9H, Sodium Level 140, White Blood Count 10.6 07/03/16 05:57: Glucometer 142H 07/03/16 11:20: Glucometer 211H Microbiology 06/28/16 Blood Culture - Preliminary, Resulted Escherichia Coli 07/02/16 Influenza Types A,B Antigen (ROBIN) - Final, Complete Assessment/Plan Assessment/Plan Assess & Plan/Chief Complaint 66 yo F sepsis secondary to respiratory source- Pneumonia - continue levoquin. on 3L oxygen NC- baseline at home is 2L oxygen Bacteremia- e.coli- repeated blood cultures, 100.5F this AM- h/o afib post ablation April 2016- digoxin, flecainide, eliquis 5mg epistaxis- cauterized with silver nitrate- retouched up border of silver nitrate/blood scab. Iron deficiency anemia- s/p Fe infusion 07/01/16- hgb stable also on venofer diabetes mellitus- levemir 30units daily, 35units qhs obesity- worsens any respiratory issues- recommend weight loss obstructive sleep apnea- cpap hypothyroidism- continue levothyroxine 88mcg mouth pain- nystatin swish/spit Dispo: Pt does not feel strong enough to go home. I discussed with pt if she would not have had that fever she would have likely been d/c'd today. Laying in a hospital bed does not help with regaining her strength. pt would complete 5 more days of levoquin po for her bacteremia. Diagnosis/Problems: Clinical Quality Measures DVT/VTE Risk/Contraindication: Risk Factor Score Per Nursin RFS Level Per Nursing on Admit: 4+=Very High IRENE LYLES MD Jul 03, 2016 11:41
[2016-07-03] MEDS ORDERED: SILVER NITRATE APPLICATOR 1 PKT TP NR (11:45)
[2016-07-03 12:00] VITALS: BP 141/63
[2016-07-03] MEDS: IRON SUCROSE INJECTION 200 MG in NS (IVPB) 100 ML IV SCH (13:16)
[2016-07-03 16:49] VITALS: BP 130/63
[2016-07-03 20:00] VITALS: BP 137/63
[2016-07-03] MEDS: FLUTICASONE NASAL SPRAY (FLONASE) 16 GM BTL NS SCH (20:35)
[2016-07-03] MEDS: DIGOXIN 0.125 MG (LANOXIN) TAB PO SCH (20:36)
[2016-07-03] MEDS: rOPINIRole 1 MG (REQUIP) TABLET PO SCH (20:36)
[2016-07-03] MEDS: MONTELUKAST 10 MG (SINGULAIR) TAB PO SCH (20:36)
[2016-07-04] VITALS: BP 146/64
[2016-07-04] MEDS: ONDANSETRON 4 MG/2 ML (SDV) Z0FRAN IVP PRN ×2 (02:48→09:53)
[2016-07-04] MEDS: CYCLOBENZAPRINE 10 MG (FLEXERIL) TAB PO PRN (02:56)
[2016-07-04 04:00] VITALS: BP 135/60
[2016-07-04 04:57] LABS: BASOPHILS % (AUTO) 0 % (0-10); EOSINOPHILS # (AUTO) 0.3 10^3/uL (0.0-0.3); EOSINOPHILS % (AUTO) 3 % (0-10); LYMPHOCYTES # (AUTO) 1.7 X 10^3 (1.0-4.0); LYMPHOCYTES % (AUTO) 17 % (12-44); MEAN CORPUSCULAR HEMOGLOBIN 25 PG (25-34); MEAN CORPUSCULAR HGB CONC 30 G/DL (32-36); MEAN CORPUSCULAR VOLUME 85 FL (80-99); MEAN PLATELET VOLUME 9.4 FL (7.4-10.4); MONOCYTES # (AUTO) 0.8 X 10^3 (0.0-1.0); MONOCYTES % (AUTO) 8 % (0-12); NEUTROPHILS % (AUTO) 72 % (42-75); PLATELET COUNT 371 10^3/uL (130-400); RED BLOOD COUNT 3.74 10^6/uL (4.35-5.85); RED CELL DISTRIBUTION WIDTH 14.9 % (10.0-14.5); WHITE BLOOD COUNT 9.8 10^3/uL (4.3-11.0)
[2016-07-04 05:15] LABS: ANION GAP 11 MMOL/L (5-14); BLOOD UREA NITROGEN 10 MG/DL (7-18); BUN/CREATININE RATIO 12; CALCIUM 8.4 MG/DL (8.5-10.1); CARBON DIOXIDE 30 MMOL/L (21-32); CHLORIDE 101 MMOL/L (98-107); CREATININE SERUM 0.85 MG/DL (0.60-1.30); GFR ESTIMATED > 60; GLUCOSE 106 MG/DL (70-105); MAGNESIUM 1.8 MG/DL (1.8-2.4); PHOSPHORUS 3.9 MG/DL (2.3-4.7); POTASSIUM 3.4 MMOL/L (3.6-5.0); SODIUM 142 MMOL/L (135-145)
[2016-07-04] MEDS: LEVOTHYROXINE 88 MCG (LEVOTHORID) TAB PO SCH (06:34)
[2016-07-04] MEDS: NYSTATIN ORAL SUSP 5 ML UDC PO SCH ×2 (06:34→12:08)
[2016-07-04] MEDS: KCL 10 MEQ TAB (MICRO K) PO SCH (06:34)
[2016-07-04] MEDS: RT-ALBUTEROL/IPRATROPIUM 3 ML (DUONEB) VIAL INH SCH (07:18)
--- NOTE | 2016-07-04 07:22 | Pulmonary Progress Note ---
Subjective Subjective/Events-last exam PT is doing better. No complications noted. Exam Exam Vital Signs Date Time Temp Pulse Resp B/P Pulse Ox O2 Delivery O2 Flow Rate FiO2 07/04/16 01:00 77 07/04/16 00:00 98.4 79 17 146/64 96 NIV/CPAP 07/03/16 23:04 3.00 07/03/16 20:00 97.8 82 20 137/63 100 Nasal Cannula 3.00 07/03/16 20:00 Nasal Cannula 40.00 07/03/16 19:54 97 3.00 07/03/16 19:00 77 07/03/16 16:49 97.4 75 20 130/63 97 Nasal Cannula 3.00 07/03/16 14:20 80 07/03/16 14:15 96 3.00 07/03/16 12:00 96.8 76 20 141/63 98 Nasal Cannula 3.00 07/03/16 10:23 96 3.00 07/03/16 09:48 100.5 07/03/16 09:00 Nasal Cannula 3.00 I & O 07/04/16 07:00 Intake Total 1870 ml Output Total 1650 ml Balance 220 ml General Appearance: No Apparent Distress HEENT: PERRL/EOMI Other (no active bleed- small amount of red area where the silver nitrate scab is starting to lift off.) Neck: Non Tender Supple Respiratory: Chest Non Tender No Accessory Muscle Use No Respiratory Distress Decreased Breath Sounds (bases) Wheezing (occassional) Cardiovascular: Regular Rate, Rhythm Capillary Refill: Less Than 3 Seconds Gastrointestinal: normal bowel sounds non tender soft Extremity: Pedal Edema Neurologic/Psychiatric: Alert Oriented x3 No Motor/Sensory Deficits Normal Mood/Affect Skin: Warm/Dry Lymphatic: No Adenopathy Results Lab Laboratory Tests 07/03/16 04:02 07/04/16 04:42 Assessment/Plan Assessment/Plan Pneumonia with sepsis - improving -Levaquin -BiPAP PRN Bacteremia -ecoli hx of Afib s/p ablation Obesity SANAZ -will need to check CPAP down load as out patient asthma - stable Clinical Quality Measures DVT/VTE Risk/Contraindication: Risk Factor Score Per Nursin RFS Level Per Nursing on Admit: 4+=Very High ZIA WU DO Jul 04, 2016 07:21
[2016-07-04 08:36] VITALS: BP 136/62
--- NOTE | 2016-07-04 09:18 | Discharge Summary ---
Diagnosis/Chief Complaint Date of Admission Jun 28, 2016 at 12:33 Date of Discharge Discharge Date: Jul 02, 2016 Discharge Time: 1300 Admission Diagnosis Admission Diagnosis SEPSIS PNEUMONIA LACTIC ACIDOSIS ATRIAL FIBRILLATION POST ABLATION HYPERTENSION DIABETES MELLITUS MORBID OBESITY MILD LEUKOCYTOSIS ELEVATED CRP NAUSEA WITH EMESIS Discharge Diagnosis SEPSIS PNEUMONIA LACTIC ACIDOSIS ATRIAL FIBRILLATION POST ABLATION HYPERTENSION DIABETES MELLITUS MORBID OBESITY MILD LEUKOCYTOSIS ELEVATED CRP NAUSEA WITH EMESIS Reason Hospital Visit PT IS A 66 Y/O FEMALE WHO IS WELL KNOWN TO ME FROM CLINIC. FAUSTINO HAS HISTORY OF ATRIAL FIBRILLATION WITH RECENT ABLATION. SHE REPORTEDLY HAD BEEN FEELING POORLY FOR SEVERAL DAYS, AND DUE TO SIGNIFICANT SHORTNESS OF BREATH PRESENTED TO THE EMERGENCY DEPARTMENT FOR EVALUATION WHERE SHE WAS FOUND TO HAVE PNEUMONIA AND ELEVATED LACTIC ACID LEVELS. Discharge Summary Discharge Physical Examination Allergies: Coded Allergies: Penicillins (Verified Allergy, Severe, SWELLING, HIVES, THROAT SWELLED, 01/21/16) PATIENT HAS RECEIVED CEFEPIME WITHOUT ISSUE Sulfa (Sulfonamide Antibiotics) (Verified Allergy, Severe, TONGUE SWELLED , 01/21/16) Tetanus & Diphtheria Tox,Adult (Verified Allergy, Severe, SWELLING OF THROAT, 01/21/16) codeine (Verified Allergy, Unknown, HAS RECEIVED LORTAB IN THE PAST, ) egg (Unverified Allergy, Unknown, 06/29/16) FROM UNCODED ALLERGIES Vitals & I&Os General Appearance: Alert, Oriented X3, Cooperative, No Acute Distress HEENT: Atraumatic Respiratory: Other (DECREASED AIR MOVEMENT) Cardiovascular: Other (TACHYCARDIA) Abdominal: Normal Bowel Sounds, Soft, No Tenderness Extremities: Other (EDEMA BILATERAL LOWER LEGS) Skin: No Significant Lesion Neuro: Cranial Nerves 3-12 NL Psych/Mental Status: Mental Status NL, Mood NL Hospital Course SEPSIS PNEUMONIA LACTIC ACIDOSIS ATRIAL FIBRILLATION POST ABLATION HYPERTENSION DIABETES MELLITUS MORBID OBESITY MILD LEUKOCYTOSIS ELEVATED CRP NAUSEA WITH EMESIS EPISTAXIS IRON DEFICIENCY SEPSIS - DUE TO PNEUMONIA AND ECOLI ON BLOOD CULTURE - WITH LACTIC ACIDOSIS - LEVAQUIN AND AZTREONAM STARED DUE TO PT'S MULTIPLE OTHER ALLERGIES - IMPROVED - STOP AZTREONAM. STARTED PT'S HOME CPAP. - RX FOR LEVAQUIN CALLED TO THE PHARMACY FOR ANOTHER 5 DAYS OF TREATMENT POST-DISCHARGE. IMPROVED ENOUGH TO TRANSFER DOWN TO 4TH FLOOR ATRIAL FIBRILLATION POST ABLATION - CONTINUE SUPPORTIVE CARE/TREATMENT HYPERTENSION - RESTARTED HOME MEDS DIABETES MELLITUS - RESTARTED HOME MEDS, CHECK FSBS MORBID OBESITY - COMPLICATES CARE DUE TO AIRWAY RESTRICTION FROM HER OBESITY MILD LEUKOCYTOSIS - RESOLVED NAUSEA WITH EMESIS - IMPROVED - PHENERGAN, ZOFRAN ORDERED. EPISTAXIS - LEFT NARE - CAUTERIZED WITH SILVER NITRATE STICK. IRON DEFICIENCY - GIVEN DOSE OF IV IRON X 1 Pending Labs Discharge Condition at discharge IMPROVED Instructions to patient/family Please see electonic discharge instructions given to patient. Discharge Medications Reviewed and agree with Discharge Medication list on patient's Discharge Instruction sheet Clinical Quality Measures DVT/VTE Risk/Contraindication: Risk Factor Score Per Nursin RFS Level Per Nursing on Admit: 4+=Very High DAISY JOHNSON MD Jul 04, 2016 09:18
[2016-07-04] MEDS ORDERED: LEVO500T2 PO (09:19)
[2016-07-04] MEDS: DULoxetine 30 MG (CYMBALTA) CAP PO SCH (09:48)
[2016-07-04] MEDS: LORATADINE (CLARITIN) 10 MG TAB PO SCH (09:49)
[2016-07-04] MEDS: FLECAINIDE 100 MG (TAMBOCOR) TAB PO SCH (09:49)
[2016-07-04] MEDS: GABAPENTIN 300 MG (NEURONTIN) CAP PO SCH ×2 (09:49→12:08)
[2016-07-04] MEDS: GABAPENTIN 600 MG (NEURONTIN) TAB PO SCH ×2 (09:49→12:08)
[2016-07-04] MEDS: FUROSEMIDE 40 MG (LASIX) TAB PO SCH (09:49)
[2016-07-04] MEDS: meTOprolol SUCCINATE 100 MG (TOPROL XL) TAB PO SCH (09:49)
[2016-07-04] MEDS: inSUlin DETERMIR 1 UNIT/0.01 ML (LEVEMIR) CHARGE PER UNIT SQ SCH (09:49)
[2016-07-04] MEDS: ASPIRIN E.C. 81 MG (ECOTRIN) TAB PO SCH (09:49)
[2016-07-04] MEDS: DILTIAZEM 240 MG (CARDIZEM CD) CAP PO SCH (09:49)
[2016-07-04] MEDS: FAMOTIDINE 20MG/2ML IV (PEPCID) IVP SCH (09:50)
[2016-07-04] MEDS: LEVOFLOXACIN 750 MG/D5W 150 ML PRE-MIX IV SCH (09:50)
[2016-07-04] MEDS: APIXABAN 5 MG (ELIQUIS) TABLET PO SCH (09:50)
[2016-07-04] MEDS: DICLOFENAC 1% GEL 100 GM (VOLTAREN) TUBE TOP SCH ×2 (09:51→12:08)
[2016-07-04] MEDS: HYDROcodone/APAP 10 MG/325 MG (LORTAB) TAB PO PRN (09:57)
[2016-07-04 12:41] VITALS: BP 146/69
--- NOTE | 2016-07-04 14:06 | Physical Therapy Evaluation ---
PT Evaluation-General Medical Diagnosis Admission Date Jun 28, 2016 at 12:33 Medical Diagnosis: pneumonia Onset Date: Jun 28, 2016 Therapy Diagnosis Therapy Diagnosis: debility Height/Weight Height (Feet): 5 Height (Inches): 2.00 Weight (Pounds): 241 Weight (Ounces): 0.3 Precautions Precautions/Isolations: Fall Prevention, Standard Precautions Referral Physician: Rodolfo Reason for Referral: Evaluation/Treatment Medical History Pertinent Medical History: Atrial Fib, COPD, DM, GERD, HTN, Hypothroidism, Neuropathy Additional Medical History morbid obesity; increase SOA Current History sepsis; home O2 Reviewed History: Yes Social History Home: Single Level Current Living Status: Spouse Prior/Core FIM Prior Level of Function Functional Rogers Measure 0=Not Assessed/NA 4=Minimal Assistance 1=Total Assistance 5=Supervision or Setup 2=Maximal Assistance 6=Modified Rogers 3=Moderate Assistance 7=Complete Rogers Bed Mobility: 6 Transfers (B,C,W/C) (FIM): 6 Gait: 6 uses LBQC PT Evaluation-Current Subjective Patient agrees to PT. Pain Numeric Pain Scale: 0-No Pain Location: No Pain Reported Objective Patient Orientation: Normal For Age Problem Solving: Fair Attachments: Oxygen ROM/Strength ROM Lower Extremities noted 3+ edema bilateral LE limiting ROM Strenght Lower Extremities bilateral LE WFL Integumentary/Posture Integumentary refer to nursing notes Bowel Incontinence: No Bladder Incontinence: No Posture WNL Neuromuscular (Tone, Coordination, Reflexes) slightly diminished coordination Sensory Vision: Functional Hearing: Functional Sensation Right Lower Extremit: Impaired Sensation Left Lower Extremity: Impaired Transfers Functional Rogers Measure 0=Not Assessed/NA 4=Minimal Assistance 1=Total Assistance 5=Supervision or Setup 2=Maximal Assistance 6=Modified Rogers 3=Moderate Assistance 7=Complete Rogers Transfers (B, C, W/C) (FIM): 6 Scootin Rollin Supine to/from Sit: 6 Sit to/from Stand: 6 Gait Mode of Locomotion: Walk Anticipated Mode of Locomotion: Walk Gait (FIM): 2 Distance (FIM): 2=489-28 ft Distance: 50' in the room Gait Level of Assist: 6 Gait Assistive Device: Cane Large Base Quad Comments/Gait Description WBOS due to edema and obesity Balance Sitting Static: Normal Sitting Dynamic: Normal Standing Static: Normal Standing Dynamic: Normal Assessment/Needs 66 y.o. female, is currently at [facility] with gross motor skills and will dismiss to home on this date. This PT recommends home health PT and nursing to follow to ensure safety at home. Rehab Potential: Fair Post Rehab Potential-Barriers: morbid obesity PT Plan Treatment/Plan Treatment Plan: Discontinue PT Safety Risks/Education Patient Education: Safety Issues Teaching Recipient: Patient, Significant Other Teaching Methods: Discussion Response to Teaching: Verbalize Understanding Discharge Recommendations Therapy D/C Recommendations: Physical Therapy Home Care Time/GCodes Time In: 1300 Time Out: 1320 Total Billed Treatment Time: 20 Total Billed Treatment 1 visit EVLowC 20 min G Codes Necessary: HODAN Correa PT Jul 04, 2016 14:06
== END 2016-07-04 14:08 | disposition home health service (06) | DRG 871 ==
LOC: EDUNIT# 09:22 → ER 09:23 → 4TH 12:33 → ICU 06-29 03:52 → 4TH 07-01 16:15
PROVIDERS: ADMIT Family Medicine; ATTEND Family Medicine
DX: A41.51 Sepsis due to Escherichia coli [E. coli] (principal); J44.0 Chronic obstructive pulmonary disease with (acute) lower respiratory infection; J18.1 Lobar pneumonia, unspecified organism; N39.0 Urinary tract infection, site not specified; Z68.41 Body mass index [BMI] 40.0-44.9, adult; I10 Essential (primary) hypertension; E11.65 Type 2 diabetes mellitus with hyperglycemia; E66.01 Morbid (severe) obesity due to excess calories; G47.33 Obstructive sleep apnea (adult) (pediatric); J45.909 Unspecified asthma, uncomplicated; R06.00 Dyspnea, unspecified; I25.10 Atherosclerotic heart disease of native coronary artery without angina pectoris; E78.00 Pure hypercholesterolemia, unspecified; Z79.4 Long term (current) use of insulin; R11.2 Nausea with vomiting, unspecified; D72.829 Elevated white blood cell count, unspecified; E87.6 Hypokalemia; R04.0 Epistaxis; D50.9 Iron deficiency anemia, unspecified; E03.9 Hypothyroidism, unspecified; Z98.890 Other specified postprocedural states
CPT/HCPCS: 36415; 51701; 71010; 74177; 80048; 80053; 80061; 80162; 81000; 82728; 82962; 83540; 83605; 83690; 83735; 83874; 83880; 84100; 84484; 85025; 85610; 85730; 86141; 87040; 87186; 87804; 93005; 93041; 94640; 94660; 94664; 94760; 96361; 96365; 96375; 96376

== ENCOUNTER → 2016-08-05 | Outpatient (CLI) | payer MEDICARE ==
[~2016-08-05] MED LIST changes: +ACET-2267 PO; +DIGO125T PO; +DILT240C53 PO; +DOXY100T2 PO; +DULO60CA58 PO; +FURO40TA4 PO; +HYDR-3820 PO; +INSU100I29 SC; +INSU100I29 SQ; +ONDA4TAB10 PO; +SUCR1TAB36 PO
--- OUTSIDE RECORDS SUMMARY | 2016-08-05 12:57 | XMS REPORT | Continuity of Care Document ---
Author Author [facility] Organization [facility] Address Unknown Phone Unavailable Care Team Providers Care Translator Name Role Phone Ashley Motta PCP [phone] Source Comments Some departments are not documenting in the electronic medical record. If you do not see the information that you expected, contact Release of Information in the Health Information Management department at [phone] for further assistance in locating additional records.[facility] Active Allergies and Adverse Reactions Allergen [...] tablet Pain fluticasone (FLONASE) 50 Apply 1 [place] to each Active mcg/actuation nasal spray nostril as directed daily. Shake bottle gently before using. metoprolol XL (TOPROL XL) Take 1 Tab by mouth 90 Tab 3 04/23/20 Active 100 mg extended release daily. 16 tablet diltiazem CD (CARDIZEM Take 1 Cap by mouth 90 Cap 3 04/23/20 Active CD) 240 mg capsule daily. 16 flecainide (TAMBOCOR) 100 Take 1 Tab by mouth twice 60 Tab 11 Active mg tablet daily. 16 sucralfate (CARAFATE) 1 Take 1 Tab by mouth every 360 Tab 3 05/05/20 07/19/19 Discontin gram tablet 6 hours. Take on an empty 16 17 ued stomach. digoxin (LANOXIN) 125 mcg Take 1 Tab by mouth 30 Tab 11 05/11/20 Discontin tablet daily. 16 17 ued Active Problems Problem Noted Date S/P radiofrequency ablation operation for arrhythmia 05/05/2016 Atrial fibrillation (HCC) 03/17/2016 Overview: 01/17/16 - Echo: EF 50%. LV normal in size, endocardium was not well visualized in all segments. LA is normal in size, no clot or thrombus were seen. Mild MR, Mild TR. Pulmonary HTN with PAP 45mmHg. 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 Most Recent Encounters Date Type Specialty Providers Description 07/26/2016 [facility] Cardiology Manish Lr MD Encounter 07/19/2016 [facility] Cardiology Manish Lr MD Encounter 07/19/2016 Office Visit Cardiology Zoë Bryan MD Cardiac Eval - a-fib; Manish Lr MD chest tightness 07/19/2016 [facility] Cardiology Manish Lr MD Canceled (PROVIDER Encounter CANCELED) 07/19/2016 Hospital Radiology Manish Lr MD Encounter 07/18/2016 Telephone Cardiology Amanda Geronimo RN Follow-up Phone Call - glucose [phone] 07/18/2016 Documentation Cardiology Amanda Geronimo RN Labs Only - BMP, to be addressed at 07/19 OV with MPE 07/18/2016 Orders Only Cardiology Amanda Geronimo RN S/P radiofrequency ablation operation for arrhythmia; Atrial fibrillation, unspecified type 07/15/2016 Orders Only Cardiology Marii Mac Atrial fibrillation, unspecified type (Primary Dx) 07/14/2016 Orders Only Cardiology Aleja Jackson RN S/P radiofrequency ablation operation for arrhythmia (Primary Dx); Atrial fibrillation, unspecified type 07/14/2016 [facility] Cardiology Aleja Jackson RN Pre-Admission Checklist 06/27/2016 Telephone Cardiology Sushma Treadwell RN Other - cta requested 2016 Telephone Cardiology Aleja Jackson RN Other - post ablation cta ordered 2016 Orders Only Cardiology Aleja Jackson RN Atrial fibrillation , unspecified type (Primary Dx); S/P radiofrequency ablation operation for arrhythmia 06/21/2016 [facility] Cardiology Manish Lr MD Encounter 05/17/2016 [facility] Cardiology Manish Lr MD Encounter 05/11/2016 Office Visit Cardiology Zoë Bryan MD Atrial fibrillation - afib/chest tightness/jaw pain/arm pain/heartburn 05/09/2016 Telephone Cardiology Gamal Cervantes RN Irregular Heart Beat - numbness, slurred speech, gait difficult over the weekend; Tingling - & numbness Social History Tobacco Use Types Packs/Day Years Used Date Never Smoker Smokeless Tobacco: Never Used Alcohol Use Drinks/Week oz/Week Comments No Last Filed Vital Signs Vital Sign Reading Time Taken Blood Pressure 124/76 07/19/2016 1:39 PM [facility] Pulse 98 05/11/2016 10:57 AM [facility] Temperature 36.4 C (97.5 F) 04/23/2016 3:13 AM [facility] Respiratory Rate - - Height 1.575 m (5' 2") 07/19/2016 1:39 PM [facility] Weight 104.327 kg (230 lb) 07/19/2016 1:39 PM [facility] Body Mass Index 42.06 07/19/2016 1:39 PM [facility] Oxygen Saturation 98% 05/05/2016 10:14 AM [facility] Plan of Care Date Type Specialty Providers Description 08/30/2016 Appointment [facility]iology Manish Lr [facility] [address] [place] [address] [phone] (Fax) 09/20/2016 Appointment Cardiology Manish Lr MD [address] [place] [address] [phone] (Fax) 09/20/2016 Appointment Cardiology Manish Lr MD [address] [place] [address] [phone] (Fax) Health Maintenance Due Date Last Done Comments Hepatitis C Screening 1950 Physical (Comprehensive) 1957 Exam Pertussis Vaccine 1961 Tetanus Vaccine 1967 Dilated Eye Exam 1968 Foot Exam 1968 Hba1c 1968 Microalbumin 1968 Breast Cancer Screening 1990 Colorectal Cancer 2000 Screening Shingles Vaccine 2010 Osteoporosis Screening 2015 Prevnar/Pneumovax (#1) 2015 Influenza Vaccine 01/20/2017 Results from Last 3 Months DEVICE EVALUATION - REMOTE ILR (07/28/2016 11:25 AM)Only the most recent of 3 results within the time period is included. Component Value Range Generator Implnat Date 04/08/15 Generator Model # Reveal Linq [id number] Device Implanted By Dr. Dyer Generator Serial # [id number] EP Device Followed by MPE Name ILR Symptom Duration 4 7.5 mins each ILR Tachy Rate 167 ILR Tachy Duration 16 ILR Pause Duration 3 ILR Chris Rate 30 ILR Chris Duration 8 ILR AT Events Since Last n/a Interrogation ILR AT Lifetime Events as n/a of Generator [facility] [employer] Wireless Generator Yes Device Type ILR EP Device Followed By Other ILR AF Rate AF only ILR AF Duration episodes > 10 mins Device Clear Carelink Express Transmitter Compatible ILR Current Monitoring 07/26/2016 to 08/25/2016 Period ILR Date of Last Daily 07/26/2016 Connection ILR Lifetime Events as of 07/26/2016 Datetion ILR Symptom Events Since 0 Last [...] 270 of ILR Percent Time in AT/AF 0.0% Events Since Last Interrogation ILR Percent Time in AT/AF 5.1% Lifetime of Events as of ILR Battery Status OK ILR Presenting ECG Strip 07/26/2016 @ 00:04:50 shows SR in the 80's Narrative [07/28/2016 11:26:53 AM - [place]] Reviewed Summary Report. No new events to report. Will continue to monitor pt. I will route to Dr. Card in the EP lab at today for review and co-sign. MPE is out of the office. CT CARDIAC STRUCTURE WO/W CONT (07/19/2016 1:23 PM) Impressions 1. No evidence of pulmonary vein stenosis. 2. Normal sized left atrium with no significant change since the prior study 3. The left atrial appendage is free of thrombus 4. Moderate lipomatous infiltration of the interatrial septum 5. Moderate to severe mitral annular calcification Finalized by ISRAEL HUERTA M.D. on 07/20/2016 12:07 PM. Dictated by ISRAEL HUERTA M.D. on 07/20/2016 9:[address] CARDIAC STRUCTURE WO/W CONT Primary reading physician: Israel Huerta M.D. Secondary reading physician: Everardo Allen MD, CV fellow Exam date: 07/19/16 Study number: [id number] INDICATIONS: 66-year-old female with a history of recurrent paroxysmal atrial fibrillation status post atrial fibrillation with a cryoablation.The purpose of this study is to evaluate pulmonary venous anatomy. PROCEDURAL DETAILS: 128 slice, dual source, computed tomography of the heart, without contrast material followed by contrast material and further sections, including cardiac gating and 3-D image postprocessing; cardiac structure and morphology. FINDINGS: General Cardiac Morphology and Structure: No pericardial effusion is identified. The pericardium appears normal in thickness. The aortic valve is unremarkable. There is moderate to severe annular calcification of the mitral valve. The tricuspid and pulmonic valves are not well visualized.The left ventricular myocardium is mildly thickened , with the septum and posterior wall measuring at 1.2 cm. The left ventricle has a normal compaction pattern. The right and left ventricle chamber sizes are normal. This study is not optimized for evaluation of the coronary arteries. However, the coronary arteries are reasonably well visualized. The left main arises normally from the left aortic sinus and gives rise to an LAD and a left circumflex. There is calcific plaque noted at distal left main/ostial LAD portion and in the mid LAD. The LAD gives rise to a branching diagonal branch. The left circumflex has mild calcific plaque. The RCA arises normally from the right aortic sinus. It has mild calcific plaque, and is technically dominant, giving rise to a PDA and PLV branch, although these branches are not well visualized. Atrial and Pulmonary Venous Anatomy: The interatrial septum is intact. It appears to be thickened likely due to lipomatous infiltration. There is no evidence of left atrial appendage thrombus. The right atrium is normal in size. There is normal pulmonary venous anatomy with bilateral superior and inferior pulmonary veins. There is no visual evidence of significant pulmonary vein stenosis. The left atrium is normal in size.The left atrial volume is 50.4 milliliters. The right upper pulmonary vein ostial diameters are 1.6 cm X 1.9 cm. The right upper pulmonary vein circumferential area is 2.4 cm2. The right lower pulmonary vein ostial diameters are 1.6 cm X 1.6 cm. The right lower pulmonary vein circumferential area is 2.0 cm2. The left lower pulmonary vein ostial diameters are 1cm X 1.4 cm. The left lower pulmonary vein circumferential area is 1.1 cm2. The left upper pulmonary vein ostial diameters are 1.4 cm X 1.1 cm. The left upper pulmonary vein circumferential area is 1.1 cm2. This study is compared to prior study dated 04/12/2016.The previous measurements are below. Right superior pulmonary vein: 1.9 x 1.6 cm, 2.50 sq cm area Right inferior pulmonary vein:1.7 x 1.5 cm, 1.91 sq cm area Left inferior pulmonary vein:1.6 x 1.1 cm, 1.46 sq cm area Left superior pulmonary vein:1.6 x 1.1 cm, 1.42 sq cm area The left atrial volume on the prior study was 57 ml. Aorta and Pulmonary Arteries: The visualized portions of the aorta and pulmonary arteries are unremarkable. The ascending aorta measures about 2.9 cm in diameter.The pulmonary artery measures 2.6 cm in diameter. The descending aorta measures 2.1 cm in diameter. There is no dissection or plaque seen in the thoracic aorta. Noncardiac Findings: Noncardiac findings are reported separately under the "Limited CT Chest Report" of the same date. Procedure Note Interface, Radiant Results - MonJul 20, 2016 12:[address] CARDIAC STRUCTURE WO/W CONT Primary reading physician: Israel Huerta M.D. Secondary reading physician: Everardo Allen MD, CV fellow Exam date: 07/19/16 Study number: [id number] INDICATIONS: 66-year-old female with a history of recurrent paroxysmal atrial fibrillation status post atrial fibrillation with a cryoablation. The purpose of this study is to evaluate pulmonary venous anatomy. PROCEDURAL DETAILS: 128 slice, dual source, computed tomography of the heart, without contrast material followed by contrast material and further sections, including cardiac gating and 3-D image postprocessing; cardiac structure and morphology. FINDINGS: General Cardiac Morphology and Structure: No pericardial effusion is identified. The pericardium appears normal in thickness. The aortic valve is unremarkable. There is moderate to severe annular calcification of the mitral valve. The tricuspid and pulmonic valves are not well visualized. The left ventricular myocardium is mildly thickened, with the septum and posterior wall measuring at 1.2 cm. The left ventricle has a normal compaction pattern. The right and left ventricle chamber sizes are normal. This study is not optimized for evaluation of the coronary arteries. However, the coronary arteries are reasonably well visualized. The left main arises normally from the left aortic sinus and gives rise to an LAD and a left circumflex. There is calcific plaque noted at distal left main/ostial LAD portion and in the mid LAD. The LAD gives rise to a branching diagonal branch. The left circumflex has mild calcific plaque. The RCA arises normally from the right aortic sinus. It has mild calcific plaque, and is technically dominant, giving rise to a PDA and PLV branch, although these branches are not well visualized. Atrial and Pulmonary Venous Anatomy: The interatrial septum is intact. It appears to be thickened likely due to lipomatous infiltration. There is no evidence of left atrial appendage thrombus. The right atrium is normal in size. There is normal pulmonary venous anatomy with bilateral superior and inferior pulmonary veins. There is no visual evidence of significant pulmonary vein stenosis. The left atrium is normal in size. The left atrial volume is 50.4 milliliters. The right upper pulmonary vein ostial diameters are 1.6 cm X 1.9 cm. The right upper pulmonary vein circumferential area is 2.4 cm2. The right lower pulmonary vein ostial diameters are 1.6 cm X 1.6 cm. The right lower pulmonary vein circumferential area is 2.0 cm2. The left lower pulmonary vein ostial diameters are 1 cm X 1.4 cm. The left lower pulmonary vein circumferential area is 1.1 cm2. The left upper pulmonary vein ostial diameters are 1.4 cm X 1.1 cm. The left upper pulmonary vein circumferential area is 1.1 cm2. This study is compared to prior study dated 04/12/2016. The previous measurements are below. Right superior pulmonary vein: 1.9 x 1.6 cm, 2.50 sq cm area Right inferior pulmonary vein: 1.7 x 1.5 cm, 1.91 sq cm area Left inferior pulmonary vein: 1.6 x 1.1 cm, 1.46 sq cm area Left superior pulmonary vein: 1.6 x 1.1 cm, 1.42 sq cm area The left atrial volume on the prior study was 57 ml. Aorta and Pulmonary Arteries: The visualized portions of the aorta and pulmonary arteries are unremarkable. The ascending aorta measures about 2.9 cm in diameter. The pulmonary artery measures 2.6 cm in diameter. The descending aorta measures 2.1 cm in diameter. There is no dissection or plaque seen in the thoracic aorta. Noncardiac Findings: Noncardiac findings are reported separately under the "Limited CT Chest Report" of the same date. IMPRESSION 1. No evidence of pulmonary vein stenosis. 2. Normal sized left atrium with no significant change since the prior study 3. The left atrial appendage is free of thrombus 4. Moderate lipomatous infiltration of the interatrial septum 5. Moderate to severe mitral annular calcification Finalized by ISRAEL HUERTA M.D. on 07/20/2016 12:07 PM. Dictated by ISRAEL HUERTA M.D. on 07/20/2016 9:[address] LMTD CHEST W CARDIAC (07/19/2016 1:23 PM) Impressions A few tiny pulmonary nodules remain unchanged, and are most likely small scars or granulomas. If there are no significant risk factors for pulmonary malignancy , no further follow-up of these nodules is required. Moderate diffuse fatty infiltration of the liver. No other significant pulmonary or extracardiac abnormalities are identified. Please see separately dictated cardiac CT report. Finalized by Jamie Crespo M.D. on 07/19/2016 4:16 PM. Dictated by Jamie Crespo M.D. on 07/19/2016 4:[address] chest Clinical history: Atrial fibrillation. Technique: Multiple contiguous axial images were obtained to portions of the chest with contrast during cardiac CT imaging. The cardiac portions the study are dictated separately. Findings: Comparison is made to CT chest dated May 05, 2016. A few of the previously identified tiny pulmonary nodules are included in the [id number], such as in the right lower lobe measuring 0.4 cm on series 7, image 8 which is unchanged in size. Other tiny pulmonary nodules such as in the right lung on image 1, and in the left lung on image 1 and 11, are also unchanged. Moderate diffuse fatty infiltration of the liver is again noted. There are no other significant pulmonary or extracardiac abnormalities identified. Procedure Note Interface, Radiant Results - e Jul 19, 2016 4:[address] [facility] Limited [address] chest Clinical history: Atrial fibrillation. Technique: Multiple contiguous axial images were obtained to portions of the chest with contrast during cardiac CT imaging. The cardiac portions the study are dictated separately. Findings: Comparison is made to CT chest dated May 05, 2016. A few of the previously identified tiny pulmonary nodules are included in the [id number], such as in the right lower lobe measuring 0.4 cm on series 7, image 8 which is unchanged in size. Other tiny pulmonary nodules such as in the right lung on image 1, and in the left lung on image 1 and 11, are also unchanged. Moderate diffuse fatty infiltration of the liver is again noted. There are no other significant pulmonary or extracardiac abnormalities identified. IMPRESSION A few tiny pulmonary nodules remain unchanged, and are most likely small scars or granulomas. If there are no significant risk factors for pulmonary malignancy , no further follow-up of these nodules is required. Moderate diffuse fatty infiltration of the liver. No other significant pulmonary or extracardiac abnormalities are identified. Please see separately dictated cardiac CT report. Finalized by Jamie Crespo M.D. on 07/19/2016 4:16 PM. Dictated by Jamie Crespo M.D. on 07/19/2016 4:12 PM. BASIC METABOLIC PANEL (07/18/2016) Component Value Range Sodium 134 Potassium 4.3 Chloride 89 (L) CO2 33.0 Blood Urea Nitrogen 14 Creatinine 0.9 Glucose 358 (H) Calcium 9.4 eGFR Non 68 Anion Gap 16 (H) Specimen Blood
--- NOTE | 2016-08-08 14:15 | Diagnostic Imaging Report ---
EXAMINATION: Bilateral screening mammogram with a Computer Aided Detection (CAD) system. INDICATION: Screening. PERSONAL HISTORY: No current complaints stated on the questionnaire. COMPARISON: 11/21/2013. FINDINGS: The breasts are composed of scattered fibroglandular densities. There is a chopper operator implanted in the medial aspect of the left breast. Benign-appearing calcifications are seen. Allowing for technique and positional differences, no suspicious change is seen. IMPRESSION: No significant change. ACR BI-RADS Category 2: Benign findings. Result letter will be mailed to the patient. Note: At least 10% of breast cancer is not imaged by mammography. Dictated by: Dictated on workstation # [id number]
== END ==
LOC: RAD 12:53
PROVIDERS: ATTEND Nurse Practitioner Family
DX: Z12.31 Encounter for screening mammogram for malignant neoplasm of breast (principal)
CPT/HCPCS: 77067

== ENCOUNTER → 2016-09-19 | Outpatient (CLI) | payer MEDICARE ==
--- NOTE | 2016-09-19 15:51 | Diagnostic Imaging Report ---
INDICATION: Neck pain with radiation to the right shoulder region. EXAMINATION: AP, lateral, and odontoid views of the cervical spine are obtained. FINDINGS: There is straightening of the normal cervical lordosis. Bulky anterior osteophytes are present which may impinge upon the esophagus. There is no evidence of fracture. There is lucency within the bridging osteophyte from C2-C3 which could be related to fracture. IMPRESSION: Bulky bridging osteophytes throughout the anterior aspect of cervical spine. Lucency at the C2-C3 level may represent osteophyte fracture. If indicated, cross-sectional imaging with CT may be of value for further evaluation. Dictated by: Dictated on workstation # [id number]
--- NOTE | 2016-09-19 16:05 | Diagnostic Imaging Report ---
Three views of the right shoulder. INDICATION: Right shoulder pain. FINDINGS: There is mild degenerative change at the AC joint with small superiorly projecting osteophytes seen. There is joint space narrowing with subchondral sclerosis. The glenohumeral joints appear unremarkable. No fracture or dislocation seen. IMPRESSION: Moderate right AC joint osteoarthritis. Dictated by: Dictated on workstation # [id number]
== END ==
LOC: RAD 14:48
PROVIDERS: ATTEND Nurse Practitioner Family
DX: M47.812 Spondylosis without myelopathy or radiculopathy, cervical region (principal); M19.011 Primary osteoarthritis, right shoulder
CPT/HCPCS: 72040; 73030

== ENCOUNTER → 2016-09-30 | Outpatient (CLI) | payer MEDICARE ==
--- NOTE | 2016-09-30 15:33 | Diagnostic Imaging Report ---
INDICATION: Fall two weeks ago. Pain in back radiating into right leg. FINDINGS: Good alignment of the vertebral bodies. Body heights and disc spaces are well-maintained. Mild hypertrophic lipping of the endplates noted anteriorly throughout. Facets show good alignment. There is moderate degenerative disease of the facets from L4-S1. Pedicles are intact. SI joints are symmetrical with mild sclerosis. Mild atherosclerotic aortic calcification. IMPRESSION: 1. Degenerative disc and facet disease with no acute abnormalities. Dictated by: Dictated on workstation # [id number]
--- NOTE | 2016-09-30 15:35 | Diagnostic Imaging Report ---
INDICATION: Fall two weeks ago. Knee pain. FINDINGS: Three views nonweightbearing. FINDINGS: Moderate degenerative changes noted with narrowing of the medial compartment approximately 50%. Hypertrophic changes of the medial femoral condyle and tibial plateau. The articulating surfaces appear smooth. The patellofemoral joint shows advanced degenerative disease with large osteophytes along the patellofemoral joint. No evidence of chondrocalcinosis. No loose bodies. No cortical fractures. IMPRESSION: Moderate degenerative disease noted in the medial compartment and patellofemoral joint with no acute abnormalities. Dictated by: Dictated on workstation # [id number]
== END ==
LOC: RAD 14:17
PROVIDERS: ATTEND Nurse Practitioner Family
DX: M47.816 Spondylosis without myelopathy or radiculopathy, lumbar region (principal); M17.11 Unilateral primary osteoarthritis, right knee
CPT/HCPCS: 72100; 73562

== ENCOUNTER → 2016-10-28 | Outpatient (CLI) | payer MEDICARE ==
[2016-10-28 16:31] LABS: BASOPHILS % (AUTO) 0 % (0-10); EOSINOPHILS # (AUTO) 0.2 10^3/uL (0.0-0.3); EOSINOPHILS % (AUTO) 2 % (0-10); LYMPHOCYTES # (AUTO) 1.4 X 10^3 (1.0-4.0); LYMPHOCYTES % (AUTO) 17 % (12-44); MEAN CORPUSCULAR HEMOGLOBIN 28 PG (25-34); MEAN CORPUSCULAR HGB CONC 31 G/DL (32-36); MEAN CORPUSCULAR VOLUME 90 FL (80-99); MEAN PLATELET VOLUME 9.6 FL (7.4-10.4); MONOCYTES # (AUTO) 0.5 X 10^3 (0.0-1.0); MONOCYTES % (AUTO) 6 % (0-12); NEUTROPHILS # (AUTO) 6.3 X 10^3 (1.8-7.8); NEUTROPHILS % (AUTO) 75 % (42-75); PLATELET COUNT 285 10^3/uL (130-400); RED BLOOD COUNT 4.09 10^6/uL (4.35-5.85); RED CELL DISTRIBUTION WIDTH 14.6 % (10.0-14.5); WHITE BLOOD COUNT 8.4 10^3/uL (4.3-11.0)
[2016-10-28 16:33] LABS: BILIRUBIN,URINE NEGATIVE (NEGATIVE); KETONES,URINE NEGATIVE (NEGATIVE); LEUKOCYTE ESTERASE ,URINE NEGATIVE (NEGATIVE); NITRITE,URINE NEGATIVE (NEGATIVE); PH,URINE 6 (5-9); PROTEIN,URINE 1+ (NEGATIVE); UROBILINOGEN,URINE NORMAL (NORMAL)
[2016-10-28 16:42] LABS: WBC,URINE RARE /HPF
[2016-10-28 16:45] LABS: ALANINE AMINOTRANSFERASE 30 U/L (0-55); ALBUMIN 3.6 G/DL (3.2-4.5); ANION GAP 13 MMOL/L (5-14); ASPARTATE AMINO TRANSFERASE 49 U/L (5-34); BILIRUBIN,TOTAL 0.3 MG/DL (0.1-1.0); BLOOD UREA NITROGEN 13 MG/DL (7-18); BUN/CREATININE RATIO 15; CALCIUM 8.9 MG/DL (8.5-10.1); CARBON DIOXIDE 29 MMOL/L (21-32); CHLORIDE 97 MMOL/L (98-107); CREATININE SERUM 0.87 MG/DL (0.60-1.30); GFR ESTIMATED > 60; GLUCOSE 351 MG/DL (70-105); POTASSIUM 3.8 MMOL/L (3.6-5.0); SODIUM 139 MMOL/L (135-145); TOTAL PROTEIN 6.7 G/DL (6.4-8.2)
[2016-10-28 16:46] LABS: BAND NEUTROPHILS 0 %; BASOPHILS % (MANUAL) 0 %; EOSINOPHILS % (MANUAL) 4 %; LYMPHOCYTES % (MANUAL) 19 %; NEUTROPHILS % (MANUAL) 73 %
== END | disposition home or self-care (01) ==
LOC: LAB 16:13
PROVIDERS: ATTEND Nurse Practitioner Family
DX: E11.65 Type 2 diabetes mellitus with hyperglycemia (principal); R11.2 Nausea with vomiting, unspecified; R30.0 Dysuria
CPT/HCPCS: 36415; 80053; 81000; 85007; 85027

== ENCOUNTER → 2016-11-24 | Outpatient (CLI) | payer MEDICARE ==
--- NOTE | 2016-11-24 17:32 | Diagnostic Imaging Report ---
PROCEDURE: MR imaging of the brain without contrast. TECHNIQUE: Multiplanar, multisequence MR imaging of the brain was performed without contrast. INDICATION: Patient having electrical shock sensation in the legs and the arms. FINDINGS: There is no diffusion restriction to suggest an acute infarct or other diffusion abnormality. There are periventricular and deep white matter T2 hyperintense signal abnormalities in a somewhat symmetric fashion, commonly seen at this age with chronic microvascular ischemic changes. These are not entirely specific, however, and demyelinating process or vasculitis for example could demonstrate similar findings. There is no hydrocephalus. No extra-axial fluid collection is seen. The internal auditory canals and inner ear structures appear symmetric. The central vascular flow-voids are unremarkable. The pituitary gland is normal in size. No hypothalamic or pineal region mass. There is suggestion of a small mucus retention cyst in the anterior inferior aspect of the right frontal sinus. Otherwise, the paranasal sinuses and orbits appear grossly unremarkable. There is nasal septal deviation to the right. IMPRESSION: White matter findings seen are most commonly secondary to chronic microvascular ischemic changes. No acute infarct. Dictated by: Dictated on workstation # [id number]
== END ==
LOC: RAD 15:17
PROVIDERS: ATTEND Nurse Practitioner Family
DX: R25.3 Fasciculation (principal); R51 Headache
CPT/HCPCS: 70551

== ENCOUNTER → 2017-01-11 | Outpatient (CLI) | payer MEDICARE ==
[~2017-01-11] MED LIST changes: +ALBU2.5V4 IH; +ASPI-983 PO; +AZIT250T12 PO; +BUDE10.2 IH; +CALC117719 PO; +DIGO125T18 PO; +DIPH25CA79 PO; +DULO30CA48 PO; +ERGO50006 PO; +FEXO-46 PO; +LACT1TAB9 PO; -METO-274 PO; +METO-395 PO; +NAPH15DR8 OU; +NYST1POW22 TOP; +OXYC-465 PO; +RT-ALBUTEROL SULF 2.5 MG/3 ML PRE-MIX VIAL IH ONE
--- NOTE | 2017-01-11 15:58 | Diagnostic Imaging Report ---
PROCEDURE: CT chest without contrast. TECHNIQUE: Multiple contiguous axial images were obtained through the chest without the use of intravenous contrast. INDICATION: Lung nodule. FINDINGS: The previous CT abdomen/pelvis exam of 06/28/2016 noted a 5 mm nodule in the right lower lobe. This finding seems stable when compared to the previous CT abdomen/pelvis exam of 01/14/2016. On this exam that nodule is again identified and does not appear to have changed significantly. This nodule measures 4.5 mm (image 29 of 65). In retrospect this finding was also present on the prior exam of 01/27/2014 and has not changed since that time. Given the roughly three-year stability of this finding, I do suspect that it is benign and no further surveillance imaging is necessary. No other parenchymal nodule is identified. The minimal scar formation in the left lung base seen previously is again evident and no different. There is no sign of failure, pneumonia or pleural effusion to suggest an acute abnormality. The heart size is stable. Coronary artery calcifications are again noted. The aorta is not abnormally dilated. There is no mediastinal or hilar adenopathy although this exam is limited in the evaluation of adenopathy due to the absence of intravenous contrast. The thyroid gland is unremarkable. There is no obvious breast mass. The loop recorder in the left breast seen previously is again evident. The sections through the upper abdomen show that the liver is enlarged and of lower density than usually seen. This does suggest fatty metamorphosis. The bone window show no evidence for a fracture or for a destructive lesion. IMPRESSION: 1. The small nodule in the right lung base seen previously is again evident and stable. Most likely, this is a benign process. There is no further surveillance imaging necessary. 2. There is no acute cardiopulmonary abnormality identified. Dictated by: Dictated on workstation # [id number]
== END ==
LOC: RT 14:14
PROVIDERS: ATTEND Internal Medicine Critical Care Medicine
DX: J44.9 Chronic obstructive pulmonary disease, unspecified (principal); R91.1 Solitary pulmonary nodule; J45.909 Unspecified asthma, uncomplicated; G47.33 Obstructive sleep apnea (adult) (pediatric); E66.01 Morbid (severe) obesity due to excess calories
CPT/HCPCS: 71250; 94060; 94640; 94726; 94729

== ENCOUNTER 2017-02-03 11:56 | Inpatient (IN) | payer MEDICARE ==
[~2017-02-03] VITALS: Ht 157.5 cm; Wt 109.8 kg
[~2017-02-03 11:56] MED LIST changes: -ALBU2.5V4 IH; -ASPI-983 PO; -AZIT250T12 PO; -BUDE10.2 IH; -CALC117719 PO; -DIGO125T18 PO; -DIPH25CA79 PO; -DULO30CA48 PO; -ERGO50006 PO; -FEXO-46 PO; -LACT1TAB9 PO; -NAPH15DR8 OU; -NYST1POW22 TOP; -OXYC-465 PO; -RT-ALBUTEROL SULF 2.5 MG/3 ML PRE-MIX VIAL IH ONE
[2017-02-03 12:25] LABS: BASOPHILS % (AUTO) 0 % (0-10); EOSINOPHILS % (AUTO) 0 % (0-10); LYMPHOCYTES # (AUTO) 1.2 X 10^3 (1.0-4.0); LYMPHOCYTES % (AUTO) 10 % (12-44); MEAN CORPUSCULAR HEMOGLOBIN 27 PG (25-34); MEAN CORPUSCULAR HGB CONC 31 G/DL (32-36); MEAN CORPUSCULAR VOLUME 89 FL (80-99); MEAN PLATELET VOLUME 9.6 FL (7.4-10.4); MONOCYTES # (AUTO) 0.9 X 10^3 (0.0-1.0); MONOCYTES % (AUTO) 8 % (0-12); NEUTROPHILS # (AUTO) 9.8 X 10^3 (1.8-7.8); NEUTROPHILS % (AUTO) 82 % (42-75); PLATELET COUNT 316 10^3/uL (130-400); RED BLOOD COUNT 3.67 10^6/uL (4.35-5.85); RED CELL DISTRIBUTION WIDTH 14.6 % (10.0-14.5)
--- NOTE | 2017-02-03 12:37 | Diagnostic Imaging Report ---
INDICATION: Shortness of air. Nausea and vomiting. COMPARISON: 06/28/2016. FINDINGS: Single frontal radiographic view of the chest was obtained and demonstrates moderate cardiomegaly. There is also moderate pulmonary vascular congestion and perhaps early interstitial edema. Lung bases are partially obscured secondary to overlying soft tissue attenuation, but there is no large pleural effusion, focal alveolar consolidation, nor pneumothorax. Bony structures show no gross acute abnormalities. IMPRESSION: 1. Moderate cardiomegaly and pulmonary vascular congestion. 2. Probable interstitial pulmonary edema as well. Dictated by: Dictated on workstation # [id number]
[2017-02-03 12:38] LABS: INR 1.3 (0.8-1.4); PROTHROMBIN TIME PATIENT 15.8 SEC (12.2-14.7)
[2017-02-03] MEDS ORDERED: ONDANSETRON 4 MG/2 ML (SDV) Z0FRAN IVP ONE ×2 (12:45→13:30)
[2017-02-03 12:48] LABS: ALANINE AMINOTRANSFERASE 26 U/L (0-55); ALBUMIN 3.5 GM/DL (3.2-4.5); ANION GAP 12 MMOL/L (5-14); ASPARTATE AMINO TRANSFERASE 34 U/L (5-34); BILIRUBIN,TOTAL 1.6 MG/DL (0.1-1.0); BLOOD UREA NITROGEN 10 MG/DL (7-18); BUN/CREATININE RATIO 13; CALCIUM 8.9 MG/DL (8.5-10.1); CARBON DIOXIDE 31 MMOL/L (21-32); CHLORIDE 91 MMOL/L (98-107); CREATININE SERUM 0.76 MG/DL (0.60-1.30); GFR ESTIMATED > 60; GLUCOSE 303 MG/DL (70-105); POTASSIUM 3.6 MMOL/L (3.6-5.0); SODIUM 134 MMOL/L (135-145); TOTAL PROTEIN 6.9 GM/DL (6.4-8.2)
[2017-02-03 12:53] LABS: TROPONIN I < 0.30 NG/ML (<0.30)
[2017-02-03] MEDS ORDERED: FUROSEMIDE 40 MG/4 ML INJ (LASIX) IV STA (13:24)
--- NOTE | 2017-02-03 13:29 | ED Respiratory ---
General Chief Complaint: Respiratory Problems Stated Complaint: SOA Source: patient Exam Limitations: no limitations History of Present Illness Time seen by provider: 12:20 Initial Comments Here with report of not feeling well over the past couple of days. This is included fever and chills as well as diarrhea 2 days ago that has resolved and nausea and vomiting today that has worsened. Complains of shortness of breath despite home treatments. Due to the nausea and vomiting she has been unable to take her medicines for the last 1-2 days including her Lasix. Does have history of diabetes it's not well controlled as well as heart failure and sent well controlled. She was concerned that her A. fib may be acting up. She did send transmission via vent monitor overnight twice last night due to the feeling that she was in A. fib. Currently she is not. Complains of being short of breath with any activity. Timing/Duration: getting worse Severity: moderate Prior Episodes/Possible Cause: occasional episodes Modifying Factors: Worse With Activity, Improves With Oxygen, Improves With Rest Associated Symptoms: cough, fever/chills, shortness of breath Allergies and Home Medications Allergies Coded Allergies: Penicillins (Verified Allergy, Severe, SWELLING, HIVES, THROAT SWELLED, 01/21/16) PATIENT HAS RECEIVED CEFEPIME WITHOUT ISSUE Sulfa (Sulfonamide Antibiotics) (Verified Allergy, Severe, TONGUE SWELLED , 01/21/16) Tetanus & Diphtheria Tox,Adult (Verified Allergy, Severe, SWELLING OF THROAT, 01/21/16) codeine (Verified Allergy, Unknown, HAS RECEIVED LORTAB IN THE PAST, ) egg (Unverified Allergy, Unknown, 06/29/16) FROM UNCODED ALLERGIES Home Medications Acetaminophen 500 Mg Tablet, 500-1,000 MG PO Q6H PRN for SHORTNESS OF BREATH, ( Reported) Albuterol Sulfate 8.5 Gm Hfa.aer.ad, 2 PUFF INH Q4H PRN for SHORTNESS OF BREATH, (Reported) Alprazolam 0.5 Mg Tablet, 0.5 MG PO TID PRN for ANXIETY, (Reported) Apixaban 5 Mg Tablet, 5 MG PO BID, (Reported) Aspirin 81 Mg Tablet.dr, 81 MG PO DAILY, (Reported) Budesonide 0.5 Mg/2 Ml Ampul.neb, 1 VIAL NEB BID PRN for SHORTNESS OF BREATH, ( Reported) Colesevelam HCl 625 Mg Tablet, 1,875 MG PO BID, (Reported) TAKES 3 (625MG) TABLETS Colestipol HCl 1 Gm Tablet, 1 GM PO BID, (Reported) Cyclobenzaprine HCl 10 Mg Tablet, 10 MG PO BID PRN for MUSCLE SPASMS, (Reported) LAST FILLED #60 10-02-15 Digoxin 125 Mcg Tablet, 125 MCG PO HS, (Reported) Diltiazem HCl 240 Mg Cap.er.24h, 240 MG PO DAILY, (Reported) Duloxetine HCl 60 Mg Capsule.dr, 60 MG PO DAILY, (Reported) Fexofenadine Hcl 180 Mg Tablet, 180 MG PO DAILY, (Reported) Flecainide Acetate 100 Mg Tablet, 100 MG PO BID, (Reported) Fluticasone Propionate 16 Gm [place].susp, 1 SPRAY NS HS, (Reported) Furosemide 40 Mg Tablet, 40 MG PO 1000,1500, (Reported) Gabapentin 600 Mg Tablet, 900 MG PO TID, (Reported) TAKES 1 & 1/2 (600MG) TABLETS Hydrocodone/Acetaminophen 1 Each Tablet, 1 TAB PO Q6H PRN for PAIN, (Reported) Hydrocortisone 28.35 Gm Cream.appl, TOP TID PRN for HEMORRHOIDS, (Reported) Insulin Detemir 100 Unit/1 Ml Insuln.pen, 35 UNITS SC DAILY, (Reported) Insulin Detemir 100 Unit/1 Ml Insuln.pen, 30 UNIT SQ HS, (Reported) Levofloxacin 500 Mg Tablet, 500 MG PO DAILY, #3 Prescribed by: DAISY MOTTA on 07/04/16 0919 Levothyroxine Sodium 88 Mcg Tablet, 88 MCG PO DAILY, (Reported) Metoprolol Succinate 100 Mg Tab.er.24h, 100 MG PO BID, (Reported) Montelukast Sodium 10 Mg Tablet, 10 MG PO HS, (Reported) Ondansetron HCl 4 Mg Tablet, 4 MG PO Q4H PRN for NAUSEA/VOMITING, (Reported) Pantoprazole Sodium 40 Mg Tablet.dr, 40 MG PO BID, (Reported) Potassium Chloride 10 Meq Tablet.er, 10 MEQ PO DAILY, (Reported) Promethazine HCl 25 Mg Tablet, 25 MG PO Q8H PRN for NAUSEA/VOMITING, (Reported) Ropinirole HCl 1 Mg Tablet, 0.5-1 MG PO HS, (Reported) STATES SHE SOMETIMES ONLY TAKES 1/2 (1MG) TABLET Sucralfate 1 Gm Tablet, 1 GM PO ACHS PRN for STOMACH UPSET, (Reported) Constitutional: see HPI, chills, fever, weakness EENTM: no symptoms reported Respiratory: dyspnea on exertion, short of breath, wheezing Cardiovascular: No chest pain, edema Gastrointestinal: No abdominal pain, diarrhea, nausea, vomiting Genitourinary: decreased output : No Musculoskeletal: no symptoms reported Skin: no symptoms reported All Other Systems Reviewed Negative Unless Noted: Yes Past [id number]-[id number]-Pkhfcf Hx Patient Social History Alcohol Use: Denies Use Recreational Drug Use: No Smoking Status: Never a Smoker 2nd Hand Smoke Exposure: No Recent Hopitalizations: Yes Immunizations Up To Date Date of Pneumonia Vaccine: Jan 31, 2012 Seasonal Allergies Seasonal Allergies: Yes Surgeries History of Surgeries: Yes (KNEE SCOPES X3 - D&C'S ) Surgeries: Appendectomy, Breast, Cardiac, Section, Gallbladder, 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, Oophorectomy, Orthopedic, Tonsillectomy Respiratory History of Respiratory Disorde: Yes Respiratory Disorders: Asthma, Sleep Apnea, COPD Currently Using CPAP: Yes Currently Using BIPAP: No Cardiovascular History of Cardiac Disorders: Yes Cardiac Disorders: Atrial Fibrillation, Chronic Edema/Swelling, Coronary Artery Disease, High Cholesterol, Hypertension, Palpitations Neurological History of Neurological Disord: Yes (bels palsy) Neurological Disorders: Neuropathy Reproductive System Hx Reproductive Disorders: No Sexually Transmitted Disease: No HIV/AIDS: No 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, 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 Genitourinary History of Genitourinary Disor: Yes Genitourinary Disorders: UTI-Chronic Gastrointestinal History of Gastrointestinal Di: Yes Gastrointestinal Disorders: Gastroesophageal Reflux, Diverticulosis, Irritable Bowel Musculoskeletal History of Musculoskeletal Dis: Yes Musculoskeletal Disorders: Arthritis, Fibromyalgia, Chronic Back Pain Endocrine History of Endocrine Disorders: Yes Endocrine Disorders: Diabetes, Insulin dep, Hypothyroidsim HEENT History of HEENT Disorders: No HEENT Disorders: Tonsilitis Loss of Vision: Denies Hearing Impairment: Denies Cancer History of Cancer: No Psychosocial History of Psychiatric Problem: Yes Behavioral Health Disorders: Anxiety, Depression Integumentary History of Skin or Integumenta: No Blood Transfusions History of Blood Disorders: Yes (anemia) Adverse Reaction to a Blood Tr: No Reviewed Nursing Assessment Reviewed/Agree w Nursing PMH: Yes Family Medical History Significant Family History: Heart Disease, Diabetes, GI Disease, Hypertension, Stroke Family Medial History: Cardiovascular disease 19 FATHER 19 MOTHER Diabetes mellitus 19 MOTHER Irritable bowel syndrome G8 BROTHER Myocardial infarction 19 FATHER 19 MOTHER TIAs 19 MOTHER Physical Exam Vital Signs Capillary Refill : General Appearance: WD/WN, mild distress (respiratory) HEENT: PERRL/EOMI, pharynx normal Neck: full range of motion, supple Respiratory: normal breath sounds Cardiovascular: no murmur, tachycardia Gastrointestinal: non tender, soft Extremities: non-tender, normal inspection Neurologic/Psychiatric: alert, oriented x 3 Skin: normal color, warm/dry Focused Exam Evaluation Lactate Level Laboratory Tests 02/03/17 12:15: Lactic Acid Level 2.31*H Lactic Acid Level Laboratory Tests Test 02/03/17 12:15 Lactic Acid Level 2.31 MMOL/L (0.50-2.00) *H Progress/Results/Core Measures Results/Orders Lab Results Laboratory Tests Test 02/03/17 12:15 Range/Units White Blood Count 12.0 H 4.3-11.0 10^3/uL Red Blood Count 3.67 L 4.35-5.85 10^6/uL Hemoglobin 10.0 L 11.5-16.0 G/DL Hematocrit 33 L 35-52 % Mean Corpuscular Volume 89 80-99 FL Mean Corpuscular Hemoglobin 27 25-34 PG Mean Corpuscular Hemoglobin Concent 31 L 32-36 G/DL Red Cell Distribution Width 14.6 H 10.0-14.5 % Platelet Count 316 130-400 10^3/uL Mean Platelet Volume 9.6 7.4-10.4 FL Neutrophils (%) (Auto) 82 H 42-75 % Lymphocytes (%) (Auto) 10 L 12-44 % Monocytes (%) (Auto) 8 0-12 % Eosinophils (%) (Auto) 0 0-10 % Basophils (%) (Auto) 0 0-10 % Neutrophils # (Auto) 9.8 H 1.8-7.8 X 10^3 Lymphocytes # (Auto) 1.2 1.0-4.0 X 10^3 Monocytes # (Auto) 0.9 0.0-1.0 X 10^3 Eosinophils # (Auto) 0.0 0.0-0.3 10^3/uL Basophils # (Auto) 0.0 0.0-0.1 10^3/uL Prothrombin Time 15.8 H 12.2-14.7 SEC INR Comment 1.3 0.8-1.4 Activated Partial Thromboplast Time 39 H 24-35 SEC Sodium Level 134 L 135-145 MMOL/L Potassium Level 3.6 3.6-5.0 MMOL/L Chloride Level 91 L 98-107 MMOL/L Carbon Dioxide Level 31 21-32 MMOL/L Anion Gap 12 5-14 MMOL/L Blood Urea Nitrogen 10 7-18 MG/DL Creatinine 0.76 0.60-1.30 MG/DL Estimat Glomerular Filtration Rate > 60 BUN/Creatinine Ratio 13 Glucose Level 303 H 70-105 MG/DL Lactic Acid Level 2.31 *H 0.50-2.00 MMOL/L Calcium Level 8.9 8.5-10.1 MG/DL Total Bilirubin 1.6 H 0.1-1.0 MG/DL Aspartate Amino Transf (AST/SGOT) 34 5-34 U/L Alanine Aminotransferase (ALT/SGPT) 26 0-55 U/L Alkaline Phosphatase 174 H 40-136 U/L Troponin I < 0.30 <0.30 NG/ML B-Type Natriuretic Peptide 319.7 H <100.0 PG/ML Total Protein 6.9 6.4-8.2 GM/DL Albumin 3.5 3.2-4.5 GM/DL My Orders Orders - LOUIE WHALEN MD Cbc With Automated Diff (02/03/17 12:06) Comprehensive Metabolic Panel (02/03/17 12:06) Lactic Acid Analyzer (02/03/17 12:06) Chest 1 View, Ap/Pa Only (02/03/17 12:06) Troponin I (02/03/17 12:07) Continuous Ekg Monitoring (02/03/17 12:09) Ekg Tracing (02/03/17 12:09) Protime With Inr (02/03/17 12:10) Partial Thromboplastin Time (02/03/17 12:10) BNP (02/03/17 12:31) Blood Culture (02/03/17 12:31) Ondansetron Injection (Zofran Injectio (02/03/17 12:45) Accucheck Stat ONCE (02/03/17 12:31) Ondansetron Injection (Zofran Injectio (02/03/17 13:30) Furosemide Injection (Lasix Injection) (02/03/17 13:24) Catheter(Urinary) Insert & Ass 15 (02/03/17 13:24) Ceftriaxone Injection (Rocephin Injectio (02/03/17 13:45) Digoxin (02/03/17 13:45) Medications Given in ED Current Medications Medications Dose Ordered Sig/Jorge Route Start Time Stop Time Status Last Admin Dose Admin Ondansetron HCl 4 mg ONCE ONCE IVP 02/03/17 12:45 02/03/17 12:46 DC 02/03/17 12:44 4 MG Progress Note : Progress Note Seen and evaluated. IV, labs, EKG and chest x-ray ordered. Blood cultures and lactic acid ordered due to recent history of fever. Patient is doing better on higher O2 via nasal cannula at 4 L. Concerns for volume overload given that she has been unable to take her Lasix and other meds. She is not currently in atrial fibrillation. Due to the recent fever and lungs with moderate congestion , there is still concerns about underlying pneumonia. She does have elevated white count and left shift. We will treat subjectively for pneumonia. Lactic acid is also noted to be elevated. This may be related to hypoxia but may also be infection related. Rocephin 1 g IV ordered as well as Lasix 40 mg IV. Attempted Alexandre catheter but unable to place due to anatomy. I did discuss the case with Dr. TORRES at 1330. 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 I did discuss the case with Dr. Finney at 1343. He is on-call for Dr. Dyer accepts patient in consult. Admit to the medical floor with telemetry inpatient status. ECG Initial ECG Impression Date: Feb 03, 2017 Initial ECG Impression Time: 12:22 Initial ECG Rate: 102 Initial ECG Rhythm: S.Tach Comment Sinus rhythm with tachycardia. Normal axis. No evidence of ST elevation CA. Similar to previous. Interpreted by me. Diagnostic Imaging Diagonstic Imaging: Xray Plain Films/CT/US/NM/MRI: chest Comments [facility] [place], [place] NAME: FAUSTINO LOCO MED REC#: [id number] PT STATUS: REG ER : 1950 PHYSICIAN: LOUIE WHALEN MD ADMIT DATE: 02/03/17/ER Draft Date of Exam:02/03/17 CHEST 1 VIEW, AP/PA ONLY INDICATION: Shortness of air. Nausea and vomiting. COMPARISON: 06/28/2016. FINDINGS: Single frontal radiographic view of the chest was obtained and demonstrates moderate cardiomegaly. There is also moderate pulmonary vascular congestion and perhaps early interstitial edema. Lung bases are partially obscured secondary to overlying soft tissue attenuation, but there is no large pleural effusion, focal alveolar consolidation, nor pneumothorax. Bony structures show no gross acute abnormalities. IMPRESSION: 1. Moderate cardiomegaly and pulmonary vascular congestion. 2. Probable interstitial pulmonary edema as well. Dictated on workstation # [id number] Dict: 02/03/17 1231 Trans: 02/03/17 1236 [facility] [id number] Interpreted by: BRONSON HIGGINS MD Electronically signed by: Reviewed: Reviewed by Me Departure Communication (Admissions) Time/Spoke to Admitting Phy: 13:30 Time/Spoke to Consulting Phy: 13:43 Impression Impression: Primary Impression: Pneumonia Qualified Codes: J18.9 - Pneumonia, unspecified organism Additional Impressions: Volume overload Qualified Codes: E87.70 - Fluid overload, unspecified Nausea and vomiting Qualified Codes: R11.2 - Nausea with vomiting, unspecified Disposition: ADMITTED INPATIENT Condition: Stable Admissions Decision to Admit Reason: Admit from ER (General) Decision to Admit/Date: Feb 03, 2017 Time/Decision to Admit Time: 13:30 Departure-Patient Inst. Referrals: DAISY MOTTA MD (PCP/Family) Primary Care Physician LOUIE WHALEN MD Feb 03, 2017 13:29
[2017-02-03] MEDS ORDERED: cefTRIAXone INJECTION 1,000 MG in NS (IVPB) 50 ML IV ONE (13:45)
--- NOTE | 2017-02-03 14:23 | Consultation-Cardiology ---
HPI-Cardiology Cardiology Consultation: Date of Consultation 02/03/17 Time Seen by Provider: 15:35 Date of Admission 02-03-17 Attending Physician Tessie Motta MD Admitting Physician Tessie Motta MD Consulting Physician DEJAH BRYANT HPI: Chief Complaint: Dyspnea Palpitations Ms. Boyce is a 66 year old female admitted to 425 from the ED. She reports increasing SOB over the last few days. She reports n/v/d. She reports fever and chills. She reports cough. She states she has not taken any of her medications since Monday d/t nausea. She reports chest tightness and not being able to take in a deep breath. She reports increasing bilat LE edema. She reports episodes of palpitations which come and go over the last couple days. She reports orthopnea. She reports in general she has not felt well. She feels her breathing is somewhat better, but still does not feel she is breathing well. Her spouse is at the bedside. Her primary art glass designer is Dr. Dyer. Review of Systems-Cardiology Review of Systems Constitutional: As described under HPI, No As described under HPI, No chills, No fever, No lightheadedness Eyes: No blindness, No blurred vision, No contact lenses, No drainage, No decreased acuity, No foreign body sensation, No pain, No vision change Ears/Nose/Throat: No chronic hearing loss, No ear discharge, No ear pain, No nasal drainage, No ulcerations Respiratory: As described under HPI Cardiovascular: As described under HPI Gastrointestinal: No abdomen distended, No abdominal pain, No blood streaked bowels, No constipation, diarrhea, nausea, vomiting, No stool coloration changes Genitourinary: No burning, No dysuria, No discharge, No frequency, No flank pain, No hematuria, No urgency : No Skin: No rash, No skin related problems, No ulcerations Psychiatric/Neurological: No anxiety, No depression, No seizure, No focal weakness, No syncope Hematologic: No bleeding abnormalities All Other Systems Reviewed Negative Unless Noted: Yes QUH-Frvvva-Gaxdid Hx Patient Social History Alcohol Use: Denies Use Recreational Drug Use: No Smoking Status: Never a Smoker 2nd Hand Smoke Exposure: No Recent Foreign Travel: No Immunizations Up To Date Date of Pneumonia Vaccine: Jan 31, 2012 Past Medical History PMH As described under Assessment. Family Medical History Family Medical History: She reports her father and mother both have a h/o CAD. Her mother had DM and TIA's. Family History: 19 FATHER Cardiovascular disease Myocardial infarction 19 MOTHER Cardiovascular disease Diabetes mellitus Myocardial infarction TIAs G8 BROTHER Irritable bowel syndrome Allergies and Home Medications Allergies Coded Allergies: Penicillins (Verified Allergy, Severe, SWELLING, HIVES, THROAT SWELLED, 01/21/16) PATIENT HAS RECEIVED CEFEPIME WITHOUT ISSUE Sulfa (Sulfonamide Antibiotics) (Verified Allergy, Severe, TONGUE SWELLED , 01/21/16) Tetanus & Diphtheria Tox,Adult (Verified Allergy, Severe, SWELLING OF THROAT, 01/21/16) codeine (Verified Allergy, Unknown, HAS RECEIVED LORTAB IN THE PAST, ) egg (Unverified Allergy, Unknown, 06/29/16) FROM UNCODED ALLERGIES Home Medications Albuterol Sulfate 8.5 Gm Hfa.aer.ad, 2 PUFF INH Q4H PRN for SHORTNESS OF BREATH, (Reported) Albuterol Sulfate 2.5 Mg/3 Ml Vial.neb, 2.5 MG IH Q4H PRN for SHORTNESS OF BREATH, (Reported) Alprazolam 0.5 Mg Tablet, 0.5 MG PO TID PRN for ANXIETY, (Reported) Apixaban 5 Mg Tablet, 5 MG PO BID, (Reported) Aspirin 81 Mg Tablet.dr, 81 MG PO HS, (Reported) Budesonide/Formoterol Fumarate 10.2 Gm Hfa.aer.ad, 2 PUFF IH BID, (Reported) Calcium Carbonate 1,177 Mg Tab.chew, 2 TAB PO TID PRN for INDIGESTION, (Reported ) Colestipol HCl 1 Gm Tablet, 1 GM PO BID, (Reported) Cyclobenzaprine HCl 10 Mg Tablet, 10 MG PO Q8H PRN for MUSCLE SPASMS, (Reported) Diltiazem HCl 240 Mg Cap.er.24h, 240 MG PO DAILY, (Reported) Diphenhydramine HCl 25 Mg Capsule, 50 MG PO QID PRN for ITCHING, (Reported) Duloxetine HCl 60 Mg Capsule.dr, 60 MG PO DAILY, (Reported) TAKES ALONG WITH 30MG CAPSULES FOR A TOTAL DAILY DOSE OF 90MG Duloxetine HCl 30 Mg Capsule.dr, 30 MG PO DAILY, (Reported) TAKES ALONG WITH 60MG CAPSULE FOR A TOTAL DAILY DOSE OF 90MG Ergocalciferol (Vitamin D2) 50,000 Unit Capsule, 50,000 UNIT PO Mo, (Reported) Fexofenadine HCl 180 Mg Tablet, 180 MG PO BID, (Reported) Flecainide Acetate 100 Mg Tablet, 100 MG PO BID, (Reported) Fluticasone Propionate 16 Gm [place].susp, 1 SPRAY NS HS, (Reported) Furosemide 40 Mg Tablet, 40 MG PO 1000,1500, (Reported) Gabapentin 600 Mg Tablet, 900 MG PO TID, (Reported) TAKES 1 & 1/2 (600MG) TABLETS Hydrocodone/Acetaminophen 1 Each Tablet, 1-2 TAB PO Q6H PRN for PAIN-MODERATE, ( Reported) ONLY TAKES WHEN OUT OF PERCOCET Insulin Detemir 100 Unit/1 Ml Insuln.pen, 50 UNITS SC BID, (Reported) Levothyroxine Sodium 88 Mcg Tablet, 88 MCG PO DAILY, (Reported) LAST FILLED #30 08-19-16 Metoprolol Succinate 100 Mg Tab.er.24h, 100 MG PO BID, (Reported) Montelukast Sodium 10 Mg Tablet, 10 MG PO HS, (Reported) Naphazoline HCl/Pheniramine 15 Ml Drops, 1-2 DROP OU QID PRN for ALLERGIES, ( Reported) Nystatin 1 Each Powder.ea., TOP QID PRN for RASH, (Reported) Oxycodone HCl/Acetaminophen 1 Each Tablet, 1-2 TAB PO Q6H PRN for PAIN-MODERATE, (Reported) Pantoprazole Sodium 40 Mg Tablet.dr, 40 MG PO BID, (Reported) Promethazine HCl 25 Mg Tablet, 25 MG PO Q8H PRN for NAUSEA/VOMITING-2ND LINE, ( Reported) Ropinirole HCl 1 Mg Tablet, 0.5 MG PO HS, (Reported) TAKES 1/2 (1MG) TABLET Physical Exam-Cardiology Physical Exam Vital Signs/I&O Vital Sign - Last 12Hours 02/03/17 02/03/17 02/03/17 02/03/17 11:57 15:15 15:30 17:02 Temp 97.2 97.5 99.9 Pulse 105 98 98 91 Resp 24 24 24 B/P (MAP) 181/76 Pulse Ox 94 93 94 94 O2 Delivery Nasal Cannula Nasal Cannula O2 Flow Rate 4.00 4.00 FiO2 5 Capillary Refill : Constitutional: appears stated age, No apparent distress, well-developed, well- nourished HEENT: PERRL, No discharge, hearing is well preserved, oral hygience is good, No ulceration, No xanthelasmas are seen Neck: No carotid bruit, carotid pulses are 2 + bilaterally Respiratory: chest expansion is symmetric, chest is bilaterally symmetric, rhonchi (scattered), other (diminished throughout all lung [place]) Cardiovascular: regular rate-rhythm, No JVD, S1 and S2, systolic murmur Gastrointestinal: No tender, soft, round, audible bowel sounds, No spleenomegaly Rectal: deferred Extremities: No clubbing, No cyanosis, significant edema (mod bilat LE edema) Neurologic/Psychiatric: alert, oriented x 3, power is 5/5 both on sides Skin: No rash, No ulcerations Data Review Labs Laboratory Tests 02/03/17 12:15: White Blood Count 12.0H, Red Blood Count 3.67L, Hemoglobin 10.0L, Hematocrit 33L , Mean Corpuscular Volume 89, Mean Corpuscular Hemoglobin 27, Mean Corpuscular Hemoglobin Concent 31L, Red Cell Distribution Width 14.6H, Platelet Count 316, Mean Platelet Volume 9.6, Neutrophils (%) (Auto) 82H, Lymphocytes (%) (Auto) 10L , Monocytes (%) (Auto) 8, Eosinophils (%) (Auto) 0, Basophils (%) (Auto) 0, Neutrophils # (Auto) 9.8H, Lymphocytes # (Auto) 1.2, Monocytes # (Auto) 0.9, Eosinophils # (Auto) 0.0, Basophils # (Auto) 0.0, Prothrombin Time 15.8H, INR Comment 1.3, Activated Partial Thromboplast Time 39H, Sodium Level 134L, Potassium Level 3.6, Chloride Level 91L, Carbon Dioxide Level 31, Anion Gap 12, Blood Urea Nitrogen 10, Creatinine 0.76, Estimat Glomerular Filtration Rate > 60 , BUN/Creatinine Ratio 13, Glucose Level 303H, Lactic Acid Level 2.31*H, Calcium Level 8.9, Total Bilirubin 1.6H, Aspartate Amino Transf (AST/SGOT) 34, Alanine Aminotransferase (ALT/SGPT) 26, Alkaline Phosphatase 174H, Troponin I < 0.30, B-Type Natriuretic Peptide 319.7H, Total Protein 6.9, Albumin 3.5, Digoxin Level < 0.30L 02/03/17 14:24: Lactic Acid Level 1.93 Radiology NAME: FAUSTINO BOYCE MED REC#: [id number] PT STATUS: REG ER : 1950 PHYSICIAN: LOUIE WHALEN MD ADMIT DATE: 02/03/17/ER Draft Date of Exam:02/03/17 CHEST 1 VIEW, AP/PA ONLY INDICATION: Shortness of air. Nausea and vomiting. COMPARISON: 06/28/2016. FINDINGS: Single frontal radiographic view of the chest was obtained and demonstrates moderate cardiomegaly. There is also moderate pulmonary vascular congestion and perhaps early interstitial edema. Lung bases are partially obscured secondary to overlying soft tissue attenuation, but there is no large pleural effusion, focal alveolar consolidation, nor pneumothorax. Bony structures show no gross acute abnormalities. IMPRESSION: 1. Moderate cardiomegaly and pulmonary vascular congestion. 2. Probable interstitial pulmonary edema as well. Dictated on workstation # [id number] Dict: 02/03/17 1231 Trans: 02/03/17 1236 [facility] [id number] Interpreted by: BRONSON HIGGINS MD Electronically signed by: ECG Impression ECG Initial ECG Rhythm: Normal Sinus A/P-Cardiology Assessment/Admission Diagnosis Multi-factorial dyspnea Acute on chronic diastolic CHF. Limited echo today shows normal LVEF (approx 60% ) Probable pneumonia Acute exacerbation of asthma Paroxysmal atrial fibrillation/paroxysmal atrial tachycardia-followed by Dr. Lr. Patient underwent ablation April 2016. Had short runs of atrial fibrillation postoperatively. Currently SR. She is maintained on flecainide, diltiazem, Toprol, Eliquis. Recent hospitalization with sepsis and pneumonia-improving Sick sinus syndrome with 4 seconds upon noted on her Reveal device, followed by Dr. Murillo. No recent episode. [id number] score of 4, yearly risk of stroke without OAC is 4%. 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 Phelps. Mild bilateral carotid stenosis, nonobstructive disease by ultrasound done in March 2016 Asthma, followed by Dr. Phelps Peripheral edema, chronic, waxing and waning. Venous insufficiency scan done March 2016 was negative for reflux. Hypertension Hyperlipidemia Hypothyroidism, followed and managed by primary care physician Maturity-onset diabetes mellitus, followed and managed by primary care physician. Gastric esophageal reflux disease Discussion and Recomendations Multi-factorial dyspnea. Acute on chronic diastolic CHF. Treat with diuretics. Echocardiogram to re-evaluate LVEF and structure. Probable pneumonia with management per medical services. Acute exacerbation of asthma with management per medical services. PAF for which she is on several rate controlling agents and is managed by Dr. Lr at [facility]. We will continue her regimen. Place on tele. OAC with Eliquis, which we will continue. Monitor lab closely. We would like to thank medical services for this consult. Further recommendations will be based on her hospital course. This consult is being scribed by Salvatore Aguirre APRN on behalf of Dr. Cotto after discussion regarding plan of care. Physician Assessment Physician Assessment Lungs: good bilat air entry, but diminished at the bases Cor: reg Ext: no c/c/e A&R * As documented in our note above that I updated (italics) and as noted below * Continue diuretics * Continue previous cardiac regimen * Monitor labs DEJAH AGUIRRE Feb 03, 2017 14:23 [place] COTTO MD FACP [facility] CCDS Feb 03, 2017 18:17
[2017-02-03] MEDS ORDERED: APIXABAN 5 MG (ELIQUIS) TABLET PO ONE (14:30)
[2017-02-03 15:30] VITALS: BP 181/76
[2017-02-03] MEDS ORDERED: AZITHROMYCIN 500 MG/NS 250 ML IVPB IV SCH ×2 (15:45)
[2017-02-03] MEDS ORDERED: AZITHROMYCIN 500 MG/NS 250 ML IVPB IV NR ×2 (15:45)
[2017-02-03] MEDS ORDERED: CATHETER FLUSH 10 ML SYR IV PRN (16:00)
[2017-02-03] MEDS ORDERED: NAPH15DR8 OU (16:33)
[2017-02-03] MEDS ORDERED: OXYC-465 PO (16:33)
[2017-02-03] MEDS ORDERED: FEXO-46 PO (16:33)
[2017-02-03] MEDS ORDERED: CALC117719 PO (16:33)
[2017-02-03] MEDS ORDERED: NYST1POW22 TOP (16:33)
[2017-02-03] MEDS ORDERED: ERGO50006 PO (16:33)
[2017-02-03] MEDS ORDERED: DULO30CA48 PO (16:33)
[2017-02-03] MEDS ORDERED: DIPH25CA79 PO (16:33)
[2017-02-03] MEDS ORDERED: ASPI-983 PO (16:33)
[2017-02-03] MEDS ORDERED: BUDE10.2 IH (16:34)
[2017-02-03] MEDS ORDERED: ALBU2.5V4 IH (16:34)
[2017-02-03] MEDS: NS IV 1000 ML 1,000 ML IV SCH (16:59)
[2017-02-03 17:02] VITALS: BP 181/76
[2017-02-03] MEDS: FUROSEMIDE 40 MG/4 ML INJ (LASIX) IV SCH (17:58)
[2017-02-03] MEDS: ONDANSETRON 4 MG/2 ML (SDV) Z0FRAN IV PRN (18:01)
[2017-02-03] MEDS ORDERED: NON-FORMULARY MEDICATION 1 EA EA (Diphenhydramine HCl (Benadryl) 50 MG) PO PRN (18:30)
[2017-02-03] MEDS ORDERED: CALCIUM CARBONATE PO PRN (18:30)
[2017-02-03] MEDS ORDERED: CALCIUM CARBONATE 500 MG (TUMS) TAB.CHEW PO PRN (19:15)
[2017-02-03] MEDS ORDERED: diphenhydrAMINE 25 MG TAB (BENADRYL) PO PRN (19:15)
[2017-02-03] MEDS ORDERED: RT-ALBUTEROL SULF 2.5 MG/3 ML PRE-MIX VIAL IH PRN (20:00)
[2017-02-03 20:14] VITALS: BP 140/82
[2017-02-03] MEDS: RT-ALBUTEROL SULF 2.5 MG/3 ML PRE-MIX VIAL IH SCH ×2 (20:27→23:05)
[2017-02-03] MEDS: HYDROcodone/APAP 10 MG/325 MG (LORTAB) TAB PO PRN (21:00)
[2017-02-03] MEDS ORDERED: NON-FORMULARY MEDICATION 1 EA EA (Insulin Detemir (Levemir Flextouch) 50 UNITS) SC SCH (21:00)
[2017-02-03] MEDS ORDERED: NON-FORMULARY MEDICATION 1 EA EA (Fexofenadine HCl 180 MG) PO SCH (21:00)
[2017-02-03] MEDS ORDERED: COLESTIPOL 1 GM (COLESTID) TAB PO SCH (21:00)
[2017-02-03] MEDS: inSUlin DETERMIR 1 UNIT/0.01 ML (LEVEMIR) CHARGE PER UNIT SQ SCH (21:01)
[2017-02-03] MEDS: FLUTICASONE NASAL SPRAY (FLONASE) 16 GM BTL NS SCH (21:01)
[2017-02-03] MEDS: inSUlin (REGULAR) HUMAN 1 UNIT/0.01 ML (CHARGE PER UNIT) SC SCH (21:01)
[2017-02-03] MEDS: GABAPENTIN 600 MG (NEURONTIN) TAB PO SCH (21:02)
[2017-02-03] MEDS: FLECAINIDE 100 MG (TAMBOCOR) TAB PO SCH (21:03)
[2017-02-03] MEDS: MONTELUKAST 10 MG (SINGULAIR) TAB PO SCH (21:03)
[2017-02-03] MEDS: ASPIRIN E.C. 81 MG (ECOTRIN) TAB PO SCH (21:03)
[2017-02-03] MEDS: ALPRAZolam 0.5 MG (XANAX) TAB PO PRN (21:03)
[2017-02-03] MEDS: APIXABAN 5 MG (ELIQUIS) TABLET PO SCH (21:03)
[2017-02-03] MEDS: DIGOXIN 0.125 MG (LANOXIN) TAB PO SCH (21:03)
[2017-02-03] MEDS: PANTOPRAZOLE 40 MG (PROTONIX) TAB PO SCH (21:03)
[2017-02-03] MEDS: rOPINIRole 1 MG (REQUIP) TABLET PO SCH (21:03)
[2017-02-03] MEDS: meTOprolol SUCCINATE 100 MG (TOPROL XL) TAB PO SCH (21:03)
[2017-02-03] MEDS: LORATADINE (CLARITIN) 10 MG TAB PO SCH (21:03)
[2017-02-04] VITALS: BP 136/67
[2017-02-04] MEDS: RT-ALBUTEROL SULF 2.5 MG/3 ML PRE-MIX VIAL IH SCH ×6 (02:48→22:18)
[2017-02-04 04:00] VITALS: BP 158/71
[2017-02-04] MEDS: FUROSEMIDE 40 MG/4 ML INJ (LASIX) IV SCH ×2 (05:32→17:26)
[2017-02-04] MEDS: HYDROcodone/APAP 10 MG/325 MG (LORTAB) TAB PO PRN ×3 (05:33→21:46)
[2017-02-04] MEDS: PANTOPRAZOLE 40 MG (PROTONIX) TAB PO SCH ×2 (05:33→21:45)
[2017-02-04] MEDS: LEVOTHYROXINE 88 MCG (LEVOTHORID) TAB PO SCH (05:33)
[2017-02-04] MEDS: inSUlin (REGULAR) HUMAN 1 UNIT/0.01 ML (CHARGE PER UNIT) SC SCH ×4 (05:34→21:28)
[2017-02-04 06:05] LABS: BASOPHILS % (AUTO) 0 % (0-10); EOSINOPHILS # (AUTO) 0.1 10^3/uL (0.0-0.3); EOSINOPHILS % (AUTO) 1 % (0-10); LYMPHOCYTES # (AUTO) 1.8 X 10^3 (1.0-4.0); LYMPHOCYTES % (AUTO) 18 % (12-44); MEAN CORPUSCULAR HEMOGLOBIN 27 PG (25-34); MEAN CORPUSCULAR HGB CONC 30 G/DL (32-36); MEAN CORPUSCULAR VOLUME 90 FL (80-99); MEAN PLATELET VOLUME 9.6 FL (7.4-10.4); MONOCYTES # (AUTO) 0.6 X 10^3 (0.0-1.0); MONOCYTES % (AUTO) 6 % (0-12); NEUTROPHILS # (AUTO) 7.7 X 10^3 (1.8-7.8); NEUTROPHILS % (AUTO) 75 % (42-75); PLATELET COUNT 328 10^3/uL (130-400); RED BLOOD COUNT 3.63 10^6/uL (4.35-5.85); RED CELL DISTRIBUTION WIDTH 14.7 % (10.0-14.5); WHITE BLOOD COUNT 10.3 10^3/uL (4.3-11.0)
[2017-02-04 06:22] LABS: ALANINE AMINOTRANSFERASE 20 U/L (0-55); ALBUMIN 3.4 GM/DL (3.2-4.5); ANION GAP 13 MMOL/L (5-14); ASPARTATE AMINO TRANSFERASE 18 U/L (5-34); BILIRUBIN,TOTAL 0.8 MG/DL (0.1-1.0); BLOOD UREA NITROGEN 12 MG/DL (7-18); BUN/CREATININE RATIO 13; CALCIUM 8.8 MG/DL (8.5-10.1); CARBON DIOXIDE 36 MMOL/L (21-32); CHLORIDE 89 MMOL/L (98-107); GFR ESTIMATED > 60; GLUCOSE 114 MG/DL (70-105); SODIUM 138 MMOL/L (135-145); TOTAL PROTEIN 6.9 GM/DL (6.4-8.2)
[2017-02-04 06:31] LABS: POTASSIUM 2.5 MMOL/L (3.6-5.0)
[2017-02-04 06:45] LABS: DIGOXIN < 0.30 NG/ML (0.80-2.00); THYROID STIMULATING HORMONE 2.75 UIU/ML (0.35-4.94)
[2017-02-04] MEDS: KCL 20 MEQ TAB (K-DUR) PO SCH ×3 (06:55→21:45)
[2017-02-04 08:00] VITALS: BP 117/73
[2017-02-04] MEDS ORDERED: NON-FORMULARY MEDICATION 1 EA EA (Duloxetine HCl 60 MG) PO SCH (09:00)
[2017-02-04] MEDS: AZITHROMYCIN 250 MG TAB (ZITHROMAX) PO SCH (09:54)
[2017-02-04] MEDS: DILTIAZEM 240 MG (CARDIZEM CD) CAP PO SCH (09:54)
[2017-02-04] MEDS: meTOprolol SUCCINATE 100 MG (TOPROL XL) TAB PO SCH ×2 (09:54→21:46)
[2017-02-04] MEDS: FLECAINIDE 100 MG (TAMBOCOR) TAB PO SCH ×2 (09:54→21:46)
[2017-02-04] MEDS: LORATADINE (CLARITIN) 10 MG TAB PO SCH ×2 (09:54→21:45)
[2017-02-04] MEDS: APIXABAN 5 MG (ELIQUIS) TABLET PO SCH ×2 (09:54→21:46)
[2017-02-04] MEDS: GABAPENTIN 600 MG (NEURONTIN) TAB PO SCH ×3 (09:55→21:46)
[2017-02-04] MEDS: DULoxetine 30 MG (CYMBALTA) CAP PO SCH ×2 (09:55→09:58)
[2017-02-04] MEDS: inSUlin DETERMIR 1 UNIT/0.01 ML (LEVEMIR) CHARGE PER UNIT SQ SCH ×2 (09:56→21:54)
--- NOTE | 2017-02-04 10:58 | History & Physical-Hospitalist ---
HPI History of Present Illness: HPI/Chief Complaint The patient is a 66-year-old white female who reported to the emergency room on the afternoon of admission with complaints of shortness of breath and generally feeling bad. She reported that she began to feel ill on Monday of this week. Symptoms at first were of sinus drainage and pressure. By afternoon she had watery diarrhea and loss of appetite. She also reported feeling hot and then chilled with diaphoresis. By Monday morning she was afraid to eat. She did not take any of her usual medications either. She has had previous problems with atrial fibrillation including an ablation at [facility] early this year. She had the sensation that her chest was pounding. She did not take her 80 mg of Lasix daily. She then had the sensation that her legs and hands were swelling. She became more and more dyspneic. She reports that her weight on arrival here was at least up 10 pounds. She was given Lasix in the ER and has had good output. She reports she is much less dyspneic. Vital signs show her to be -750 on fluid. Source: patient Exam Limitations: no limitations Date Seen 02/04/17 Time Seen by Provider: 10:53 Attending Physician Tessie Motta MD PCP Tessie Motta MD Referring Physician Date of Admission Feb 03, 2017 at 13:40 Home Medications & Allergies Home Medications Reviewed patient Home Medication Reconciliation Form Allergies Allergies Coded Allergies Penicillins (Verified Allergy, Severe, SWELLING, HIVES, THROAT SWELLED, 01/21/16 ) PATIENT HAS RECEIVED CEFEPIME WITHOUT ISSUE Sulfa (Sulfonamide Antibiotics) (Verified Allergy, Severe, TONGUE SWELLED, 01/20) Tetanus & Diphtheria Tox,Adult (Verified Allergy, Severe, SWELLING OF THROAT, 01/21/16) codeine (Verified Allergy, Unknown, HAS RECEIVED LORTAB IN THE PAST, 01/21/16) egg (Unverified Allergy, Unknown, 06/29/16) FROM UNCODED ALLERGIES Past Dourqdu-Vphcuv-Nmouou Hx Patient Social History Alcohol Use: Denies Use Recreational Drug Use: No Smoking Status: Never a Smoker 2nd Hand Smoke Exposure: No Physical Abuse Screen: No Sexual Abuse: No Recent Foreign Travel: No Contact w/other who traveled: No Recent Hopitalizations: No Recent Infectious Disease Expo: No Immunizations Up To Date Date of Pneumonia Vaccine: Jan 31, 2012 Seasonal Allergies Seasonal Allergies: Yes Surgeries Yes (KNEE SCOPES X3 - D&C'S ) Appendectomy, Breast, Cardiac, Section, Gallbladder, 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, Oophorectomy, Orthopedic, Tonsillectomy Respiratory Yes Currently Using CPAP: Yes Currently Using BIPAP: No Cardiovascular Yes Atrial Fibrillation, Chronic Edema/Swelling, Coronary Artery Disease, High Cholesterol, Hypertension, Palpitations Neurological Yes (bels palsy) Neuropathy Reproductive System Hx Reproductive Disorders: No Sexually Transmitted Disease: No HIV/AIDS: No 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, Menopausal Genitourinary Yes UTI-Chronic Gastrointestinal Yes Colitis, Gastroesophageal Reflux, Diverticulosis, Irritable Bowel Musculoskeletal Yes Arthritis, Fibromyalgia, Chronic Back Pain Endocrine History of Endocrine Disorders: Yes Endocrine Disorders: Diabetes, Insulin dep, Hypothyroidsim Are Your Blood Sugars Over 250: Yes HEENT History of HEENT Disorders: No HEENT Disorders: Tonsilitis Loss of Vision: Denies Hearing Impairment: Denies Cancer No Psychosocial History of Psychiatric Problem: Yes Behavioral Health Disorders: Anxiety, Depression Integumentary History of Skin or Integumenta: No Blood Transfusions History of Blood Disorders: Yes (anemia) Adverse Reaction to a Blood Tr: No Reviewed Nursing Assessment Reviewed/Agree w Nursing PMH: Yes Family Medical History Significant Family History: Heart Disease, Diabetes, GI Disease, Hypertension, Stroke Family Hx: Cardiovascular disease 19 FATHER 19 MOTHER Diabetes mellitus 19 MOTHER Irritable bowel syndrome G8 BROTHER Myocardial infarction 19 FATHER 19 MOTHER TIAs 19 MOTHER Review of Systems Constitutional: see HPI EENTM: nose congestion Respiratory: see HPI, cough, short of breath Cardiovascular: palpitations Gastrointestinal: no symptoms reported Genitourinary: decreased output Musculoskeletal: no symptoms reported Skin: no symptoms reported Psychiatric/Neurological: No Symptoms Reported Physical Exam Physical Exam Vital Signs Vital Sign - Last 12Hours 02/03/17 02/03/17 11:57 17:02 Temp 97.2 Pulse 105 Resp 24 Pulse Ox 94 O2 Delivery Nasal Cannula O2 Flow Rate 4.00 FiO2 5 Capillary Refill : Less Than 3 Seconds General Appearance: Mild Distress, Other (hair appears damp) Eyes: Bilateral Eye Normal Inspection HEENT: Normal ENT Inspection Neck: Normal Inspection Respiratory: Rales Cardiovascular: Regular Rate, Rhythm, No Edema, No Gallop, No JVD, No Murmur, Normal Peripheral Pulses Gastrointestinal: Abnormal Bowel Sounds (decreased) Extremity: Pedal Edema (there is 2+ pitting edema to the knees bilaterally. There are no vesicles and the skin is not shiny. There is dorsal edema of the hands as well) Results Results/Procedures Lab Laboratory Tests 02/03/17 12:15 02/04/17 05:40 Assessment/Plan Admission Diagnosis 1.apparent gastroenteritis 2.pulmonary edema by clinical history and chest x-ray. 3.previous history of atrial fibrillation post-ablation early 2016 4.possible pneumonia Assessment and Plan IV Lasix. Empiric antibiotics until cultures available Clinical Quality Measures DVT/VTE Risk/Contraindication: Risk Factor Score Per Nursin RFS Level Per Nursing on Admit: 4+=Very High JAMES TORRES MD Feb 04, 2017 10:58
[2017-02-04 12:00] VITALS: BP_SYST 104; BP_SYST 123; BP_DIAS 64; BP_DIAS 79
[2017-02-04 16:10] VITALS: BP 144/77
--- NOTE | 2017-02-04 16:50 | Progress Note-Cardiology ---
Cardiology SOAP Progress Note Subjective: Shortness of breath is a little improved, according to her. No cp or palp or syncope Objective: I&O/Vital Signs Vital Sign - Last 12Hours 02/04/17 02/04/17 02/04/17 02/04/17 07:00 07:34 08:00 09:00 Temp 98.0 Pulse 83 89 Resp 20 B/P (MAP) 117/73 Pulse Ox 95 96 O2 Delivery Nasal Cannula Nasal Cannula Nasal Cannula O2 Flow Rate 5.00 4.00 3.00 FiO2 97 02/04/17 02/04/17 02/04/17 02/04/17 11:00 12:00 14:06 14:50 Temp 97.1 Pulse 79 78 Resp 20 B/P (MAP) 123/79 Pulse Ox 97 98 98 O2 Delivery Nasal Cannula Nasal Cannula Nasal Cannula O2 Flow Rate 5.00 4.00 5.00 Intake and Output 02/05/17 00:00 Intake Total 1360 ml Output Total 950 ml Balance 410 ml Weight (Pounds): 242 Weight (Ounces): 0.0 Weight (Calculated Kilograms): 109.531357 Constitutional: appears stated age, No apparent distress, well-developed, well- nourished Respiratory: chest expansion is symmetric, chest is bilaterally symmetric, rhonchi (scattered), other (diminished throughout all lung [place]) Cardiovascular: regular rate-rhythm, No JVD, S1 and S2, systolic murmur Gastrointestional: No tender, soft, round, audible bowel sounds, No spleenomegaly Extremities: No clubbing, No cyanosis, significant edema (mod bilat LE edema) Neurologic/Psychiatric: alert, oriented x 3, power is 5/5 both on sides Skin: No rash, No ulcerations Results/Procedures: Labs Laboratory Tests 02/03/17 20:26: Glucometer 299H 02/04/17 05:21: Glucometer 104 02/04/17 05:40: White Blood Count 10.3, Red Blood Count 3.63L, Hemoglobin 9.9L, Hematocrit 33L, Mean Corpuscular Volume 90, Mean Corpuscular Hemoglobin 27, Mean Corpuscular Hemoglobin Concent 30L, Red Cell Distribution Width 14.7H, Platelet Count 328, Mean Platelet Volume 9.6, Neutrophils (%) (Auto) 75, Lymphocytes (%) (Auto) 18, Monocytes (%) (Auto) 6, Eosinophils (%) (Auto) 1, Basophils (%) (Auto) 0, Neutrophils # (Auto) 7.7, Lymphocytes # (Auto) 1.8, Monocytes # (Auto) 0.6, Eosinophils # (Auto) 0.1, Basophils # (Auto) 0.0, Sodium Level 138, Potassium Level 2.5#*L, Chloride Level 89L, Carbon Dioxide Level 36H, Anion Gap 13, Blood Urea Nitrogen 12, Creatinine 0.90, Estimat Glomerular Filtration Rate > 60, BUN/ Creatinine Ratio 13, Glucose Level 114H, Calcium Level 8.8, Magnesium Level 2.0 , Total Bilirubin 0.8, Aspartate Amino Transf (AST/SGOT) 18, Alanine Aminotransferase (ALT/SGPT) 20, Alkaline Phosphatase 165H, Total Protein 6.9, Albumin 3.4, Thyroid Stimulating Hormone (TSH) 2.75, Digoxin Level < 0.30L, Smear Scan YES 02/04/17 11:08: Glucometer 234H 02/04/17 14:51: Glucometer 182H Microbiology 02/03/17 Blood Culture - Preliminary, Resulted No growth Laboratory Tests 02/03/17 12:15 02/04/17 05:40 A/P: Assessment: Multi-factorial dyspnea Acute on chronic diastolic CHF. Limited echo of 02/03/17 shows normal LVEF ( approx 60%) Probable pneumonia Acute exacerbation of asthma Paroxysmal atrial fibrillation/paroxysmal atrial tachycardia-followed by Dr. Lr. Patient underwent ablation April 2016. Had short runs of atrial fibrillation postoperatively. Currently SR. She is maintained on flecainide, diltiazem, Toprol, Eliquis. Recent hospitalization with sepsis and pneumonia-improving Sick sinus syndrome with 4 seconds upon noted on her Reveal device, followed by Dr. Murillo. No recent episode. [id number] score of 4, yearly risk of stroke without OAC is 4%. 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 Phelps. Mild bilateral carotid stenosis, nonobstructive disease by ultrasound done in March 2016 Asthma, followed by Dr. Phelps Peripheral edema, chronic, waxing and waning. Venous insufficiency scan done March 2016 was negative for reflux. Hypertension Hyperlipidemia Hypothyroidism, followed and managed by primary care physician Maturity-onset diabetes mellitus, followed and managed by primary care physician. Gastric esophageal reflux disease Plan: Replenish K Monitor labs [place] FONSECA MD FACP FAC CCDS Feb 04, 2017 16:50
[2017-02-04] MEDS: NS IV 1000 ML 1,000 ML IV SCH (17:26)
[2017-02-04 19:19] VITALS: BP 125/69
[2017-02-04] MEDS: rOPINIRole 1 MG (REQUIP) TABLET PO SCH (21:45)
[2017-02-04] MEDS: FLUTICASONE NASAL SPRAY (FLONASE) 16 GM BTL NS SCH (21:45)
[2017-02-04] MEDS: MONTELUKAST 10 MG (SINGULAIR) TAB PO SCH (21:46)
[2017-02-04] MEDS: ASPIRIN E.C. 81 MG (ECOTRIN) TAB PO SCH (21:46)
[2017-02-04] MEDS: DIGOXIN 0.125 MG (LANOXIN) TAB PO SCH (21:46)
[2017-02-04] MEDS: ALPRAZolam 0.5 MG (XANAX) TAB PO PRN (21:46)
[2017-02-05] VITALS: BP 125/70
[2017-02-05] MEDS: RT-ALBUTEROL SULF 2.5 MG/3 ML PRE-MIX VIAL IH SCH ×6 (02:21→23:04)
[2017-02-05 04:00] VITALS: BP 157/71
[2017-02-05 05:28] LABS: ANION GAP 16 MMOL/L (5-14); BLOOD UREA NITROGEN 20 MG/DL (7-18); BUN/CREATININE RATIO 23; CARBON DIOXIDE 33 MMOL/L (21-32); CHLORIDE 94 MMOL/L (98-107); CREATININE SERUM 0.88 MG/DL (0.60-1.30); GFR ESTIMATED > 60; GLUCOSE 108 MG/DL (70-105); MAGNESIUM 2.2 MG/DL (1.8-2.4); POTASSIUM 3.3 MMOL/L (3.6-5.0); SODIUM 143 MMOL/L (135-145)
[2017-02-05] MEDS: inSUlin (REGULAR) HUMAN 1 UNIT/0.01 ML (CHARGE PER UNIT) SC SCH ×4 (06:08→22:02)
[2017-02-05] MEDS: LEVOTHYROXINE 88 MCG (LEVOTHORID) TAB PO SCH (06:37)
[2017-02-05] MEDS: FUROSEMIDE 40 MG/4 ML INJ (LASIX) IV SCH ×2 (06:37→18:05)
[2017-02-05] MEDS: PANTOPRAZOLE 40 MG (PROTONIX) TAB PO SCH ×2 (06:37→23:08)
[2017-02-05] MEDS: HYDROcodone/APAP 10 MG/325 MG (LORTAB) TAB PO PRN ×2 (06:41→13:23)
[2017-02-05] MEDS: CYCLOBENZAPRINE 10 MG (FLEXERIL) TAB PO PRN ×2 (07:44→16:09)
[2017-02-05] MEDS: ALPRAZolam 0.5 MG (XANAX) TAB PO PRN ×2 (07:44→16:09)
[2017-02-05 08:00] VITALS: BP 134/70
[2017-02-05] MEDS: meTOprolol SUCCINATE 100 MG (TOPROL XL) TAB PO SCH ×2 (10:09→23:08)
[2017-02-05] MEDS: DILTIAZEM 240 MG (CARDIZEM CD) CAP PO SCH (10:09)
[2017-02-05] MEDS: LORATADINE (CLARITIN) 10 MG TAB PO SCH ×2 (10:09→23:09)
[2017-02-05] MEDS: GABAPENTIN 600 MG (NEURONTIN) TAB PO SCH ×3 (10:10→23:10)
[2017-02-05] MEDS: APIXABAN 5 MG (ELIQUIS) TABLET PO SCH ×2 (10:10→23:08)
[2017-02-05] MEDS: KCL 20 MEQ TAB (K-DUR) PO SCH ×3 (10:10→23:08)
[2017-02-05] MEDS: AZITHROMYCIN 250 MG TAB (ZITHROMAX) PO SCH (10:11)
[2017-02-05] MEDS: FLECAINIDE 100 MG (TAMBOCOR) TAB PO SCH ×2 (10:11→23:16)
[2017-02-05] MEDS: DULoxetine 30 MG (CYMBALTA) CAP PO SCH ×2 (10:12)
[2017-02-05] MEDS: inSUlin DETERMIR 1 UNIT/0.01 ML (LEVEMIR) CHARGE PER UNIT SQ SCH ×2 (10:12→23:16)
[2017-02-05 12:00] VITALS: BP 130/77
--- NOTE | 2017-02-05 13:24 | Progress Note-Hospitalist ---
Standard Progress Note Progress Notes/Assess & Plan Date Seen 02/05/17 Time Seen by Provider: 13:20 Diagnosis 1.apparent gastroenteritis 2.pulmonary edema by clinical history and chest x-ray. 3.previous history of atrial fibrillation post-ablation early 2016 4.possible pneumonia Assess & Plan/Chief Complaint The patient was deeply asleep and supine when I entered the room. Her was in attendance. He reported that she been sleeping soundly for about one hour. During her previous immediate prehospital. She had had difficulty sleeping because of dyspnea. She appears to be doing considerably better although her output to input has not been stellar. Physical exam: Lungs are clear to auscultation. There is no tachypnea. CV is regular. Legs are less tense than they were yesterday. Impression: Pulmonary edema. 2.history of atrial fibrillation now in sinus rhythm. 3.no clinical evidence of pneumonia. Plan: Continue Lasix. Consider discharge tomorrow. Labs Laboratory Tests 02/04/17 05:40 02/05/17 04:55 JAMES TORRES MD Feb 05, 2017 13:24
[2017-02-05 16:00] VITALS: BP 135/69
[2017-02-05] MEDS: NS IV 1000 ML 1,000 ML IV SCH (16:10)
--- NOTE | 2017-02-05 16:12 | Progress Note-Cardiology ---
Cardiology SOAP Progress Note Subjective: Shortness of breath is gradually improving. No cp or palp or syncope Objective: I&O/Vital Signs Vital Sign - Last 12Hours 02/05/17 02/05/17 02/05/17 02/05/17 07:00 07:04 08:00 09:00 Temp 96.0 Pulse 86 74 Resp 20 B/P (MAP) 134/70 Pulse Ox 98 97 O2 Delivery Nasal Cannula Nasal Cannula Nasal Cannula O2 Flow Rate 3.00 4.00 3.00 FiO2 97 02/05/17 02/05/17 02/05/17 02/05/17 10:40 12:00 13:00 14:50 Temp 97.8 Pulse 71 71 Resp 20 B/P (MAP) 130/77 Pulse Ox 96 99 96 O2 Delivery Nasal Cannula Nasal Cannula Nasal Cannula O2 Flow Rate 2.00 4.00 2.00 Intake and Output 02/05/17 23:59 Intake Total 1200 ml Output Total 1200 ml Balance 0 ml Weight (Pounds): 242 Weight (Ounces): 0.0 Weight (Calculated Kilograms): [id number] Constitutional: appears stated age, No apparent distress, well-developed, well- nourished Respiratory: chest expansion is symmetric, chest is bilaterally symmetric, rhonchi (scattered), other (diminished throughout all lung oliveira) Cardiovascular: regular rate-rhythm, No JVD, S1 and S2, systolic murmur Gastrointestional: No tender, soft, round, audible bowel sounds, No spleenomegaly Extremities: No clubbing, No cyanosis, significant edema (mod bilat LE edema) Neurologic/Psychiatric: alert, oriented x 3, power is 5/5 both on sides Skin: No rash, No ulcerations Results/Procedures: Labs Laboratory Tests 02/04/17 21:06: Glucometer 169H 02/05/17 04:55: Sodium Level 143, Potassium Level 3.3L, Chloride Level 94L, Carbon Dioxide Level 33H, Anion Gap 16H, Blood Urea Nitrogen 20H, Creatinine 0.88, Estimat Glomerular Filtration Rate > 60, BUN/Creatinine Ratio 23, Glucose Level 108H, Calcium Level 9.0, Magnesium Level 2.2 02/05/17 06:07: Glucometer 88 02/05/17 11:28: Glucometer 168H Microbiology 02/03/17 Blood Culture - Preliminary, Resulted No growth Laboratory Tests 02/04/17 05:40 02/05/17 04:55 A/P: Assessment: Multi-factorial dyspnea Acute on chronic diastolic CHF. Limited echo of 02/03/17 shows normal LVEF ( approx 60%) Probable pneumonia Acute exacerbation of asthma Paroxysmal atrial fibrillation/paroxysmal atrial tachycardia-followed by Dr. Lr. Patient underwent ablation April 2016. Had short runs of atrial fibrillation postoperatively. Currently SR. She is maintained on flecainide, diltiazem, Toprol, Eliquis. Recent hospitalization with sepsis and pneumonia-improving Sick sinus syndrome with 4 seconds upon noted on her Reveal device, followed by Dr. Murillo. No recent episode. [id number] score of 4, yearly risk of stroke without OAC is 4%. 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 Phelps. Mild bilateral carotid stenosis, nonobstructive disease by ultrasound done in March 2016 Asthma, followed by Dr. Phelps Peripheral edema, chronic, waxing and waning. Venous insufficiency scan done March 2016 was negative for reflux. Hypertension Hyperlipidemia Hypothyroidism, followed and managed by primary care physician Maturity-onset diabetes mellitus, followed and managed by primary care physician. Gastric esophageal reflux disease Plan: K levels improving Continue current regimen Monitor labs [place] FONSECA MD FACP FAC CCDS Feb 05, 2017 16:12
[2017-02-05 20:00] VITALS: BP 127/69
[2017-02-05] MEDS: MONTELUKAST 10 MG (SINGULAIR) TAB PO SCH (23:08)
[2017-02-05] MEDS: ASPIRIN E.C. 81 MG (ECOTRIN) TAB PO SCH (23:08)
[2017-02-05] MEDS: DIGOXIN 0.125 MG (LANOXIN) TAB PO SCH (23:09)
[2017-02-05] MEDS: rOPINIRole 1 MG (REQUIP) TABLET PO SCH (23:16)
[2017-02-05] MEDS: FLUTICASONE NASAL SPRAY (FLONASE) 16 GM BTL NS SCH (23:17)
[2017-02-06] MEDS: HYDROcodone/APAP 10 MG/325 MG (LORTAB) TAB PO PRN ×2 (00:26→08:57)
[2017-02-06] MEDS: ALPRAZolam 0.5 MG (XANAX) TAB PO PRN (00:26)
[2017-02-06 00:49] VITALS: BP_SYST 142; BP_SYST 94; BP_DIAS 59; BP_DIAS 82
[2017-02-06] MEDS: RT-ALBUTEROL SULF 2.5 MG/3 ML PRE-MIX VIAL IH SCH ×3 (02:35→11:26)
[2017-02-06 04:00] VITALS: BP 94/59
[2017-02-06] MEDS: inSUlin (REGULAR) HUMAN 1 UNIT/0.01 ML (CHARGE PER UNIT) SC SCH (05:42)
[2017-02-06 06:25] LABS: ANION GAP 11 MMOL/L (5-14); BLOOD UREA NITROGEN 19 MG/DL (7-18); BUN/CREATININE RATIO 23; CALCIUM 8.8 MG/DL (8.5-10.1); CARBON DIOXIDE 33 MMOL/L (21-32); CHLORIDE 97 MMOL/L (98-107); CREATININE SERUM 0.84 MG/DL (0.60-1.30); GFR ESTIMATED > 60; GLUCOSE 146 MG/DL (70-105); MAGNESIUM 2.2 MG/DL (1.8-2.4); POTASSIUM 3.7 MMOL/L (3.6-5.0); SODIUM 141 MMOL/L (135-145)
[2017-02-06] MEDS: LEVOTHYROXINE 88 MCG (LEVOTHORID) TAB PO SCH (06:26)
[2017-02-06] MEDS: FUROSEMIDE 40 MG/4 ML INJ (LASIX) IV SCH (06:26)
[2017-02-06] MEDS: PANTOPRAZOLE 40 MG (PROTONIX) TAB PO SCH (06:27)
[2017-02-06 08:43] VITALS: BP 120/88
[2017-02-06] MEDS: DILTIAZEM 240 MG (CARDIZEM CD) CAP PO SCH (08:55)
[2017-02-06] MEDS: DULoxetine 30 MG (CYMBALTA) CAP PO SCH ×2 (08:55→08:56)
[2017-02-06] MEDS: meTOprolol SUCCINATE 100 MG (TOPROL XL) TAB PO SCH (08:56)
[2017-02-06] MEDS: LORATADINE (CLARITIN) 10 MG TAB PO SCH (08:56)
[2017-02-06] MEDS: KCL 20 MEQ TAB (K-DUR) PO SCH (08:56)
[2017-02-06] MEDS: inSUlin DETERMIR 1 UNIT/0.01 ML (LEVEMIR) CHARGE PER UNIT SQ SCH (08:56)
[2017-02-06] MEDS: APIXABAN 5 MG (ELIQUIS) TABLET PO SCH (08:56)
[2017-02-06] MEDS: FLECAINIDE 100 MG (TAMBOCOR) TAB PO SCH (08:56)
[2017-02-06] MEDS: GABAPENTIN 600 MG (NEURONTIN) TAB PO SCH (08:56)
[2017-02-06] MEDS: AZITHROMYCIN 250 MG TAB (ZITHROMAX) PO SCH (08:56)
[2017-02-06] MEDS: ONDANSETRON 4 MG/2 ML (SDV) Z0FRAN IV PRN (09:00)
--- NOTE | 2017-02-06 09:16 | Discharge Summary ---
Diagnosis/Chief Complaint Date of Admission Feb 03, 2017 at 13:40 Date of Discharge Discharge Date: Feb 06, 2017 Discharge Time: 09:16 Admission Diagnosis Admission Diagnosis 1.apparent gastroenteritis 2.pulmonary edema by clinical history and chest x-ray. 3.previous history of atrial fibrillation post-ablation early 2016 Discharge Diagnosis GASTROENTERITIS PULMONARY EDEMA CHRONIC OXYGEN DEPENDENCE MORBID OBESITY CHRONIC DYSPNEA ON EXERTION CHRONIC ATRIAL FIBRILLATION POST ABLATION SLEEP APNEA ASTHMA CHRONIC PERIPHERAL EDEMA HYPERTENSION HYPERLIPIDEMIA HYPOTHYROID DIABETES MELLITUS Discharge Summary Discharge Physical Examination Allergies: Coded Allergies: Penicillins (Verified Allergy, Severe, SWELLING, HIVES, THROAT SWELLED, 01/21/16) PATIENT HAS RECEIVED CEFEPIME WITHOUT ISSUE Sulfa (Sulfonamide Antibiotics) (Verified Allergy, Severe, TONGUE SWELLED , 01/21/16) Tetanus & Diphtheria Tox,Adult (Verified Allergy, Severe, SWELLING OF THROAT, 01/21/16) codeine (Verified Allergy, Unknown, HAS RECEIVED LORTAB IN THE PAST, ) egg (Unverified Allergy, Unknown, 06/29/16) FROM UNCODED ALLERGIES Vitals & I&Os General Appearance: Alert, Oriented X3, Cooperative HEENT: Atraumatic, PERRLA Respiratory: Clear to Auscultation Cardiovascular: Regular Rate Abdominal: Normal Bowel Sounds, Soft Extremities: No Clubbing, No Edema Skin: No Rashes Neuro: Cranial Nerves 3-12 NL Psych/Mental Status: Mental Status NL, Mood NL Hospital Course GASTROENTERITIS PULMONARY EDEMA CHRONIC OXYGEN DEPENDENCE MORBID OBESITY CHRONIC DYSPNEA ON EXERTION CHRONIC ATRIAL FIBRILLATION POST ABLATION SLEEP APNEA ASTHMA CHRONIC PERIPHERAL EDEMA HYPERTENSION HYPERLIPIDEMIA HYPOTHYROID DIABETES MELLITUS GASTROENTERITIS - RESOLVED - PRN ZOFRAN AT HOME. PULMONARY EDEMA WITH ASTHMA, CHRONIC OXYGEN DEPENDENCE - CONTINUE WITH BREATHING TREATMENTS/REGIMEN PER DR. WU MORBID OBESITY - AGAIN ADVISED PATIENT TO STOP EATING OUT, HAVING TAKE-OUT FOOD BROUGHT IN FOR HER, CUT BACK ON CALORIES. CHRONIC ATRIAL FIBRILLATION POST ABLATION - PT TO CONTINUE WITH MEDICATIONS PER DR. VEGA AND DR. FONSECA. SLEEP APNEA - CONTINUE WITH CPAP. CHRONIC PERIPHERAL EDEMA - LASIX. HYPERTENSION AND HYPERLIPIDEMIA AND HYPOTHYROID- RESUME HOME MEDICATIONS. DIABETES MELLITUS - RESUME HOME MEDICATIONS AND CUT BACK ON CURRENT DIETARY HABITS WHICH PERPETUATE ELEVATED BLOOD GLUCOSE LEVELS. Pending Labs Discharge Condition at discharge IMPROVED Instructions to patient/family Please see electronic discharge instructions given to patient. Discharge Medications Reviewed and agree with Discharge Medication list on patient's Discharge Instruction sheet Clinical Quality Measures DVT/VTE Risk/Contraindication: Risk Factor Score Per Nursin RFS Level Per Nursing on Admit: 4+=Very High DAISY JOHNSON MD Feb 06, 2017 09:16
[2017-02-06] MEDS ORDERED: AZIT250T12 PO (09:20)
[2017-02-06] MEDS ORDERED: DIGO125T18 PO (09:20)
[2017-02-06] MEDS ORDERED: LACT1TAB9 PO (09:20)
--- NOTE | 2017-02-06 09:24 | Discharge Inst-Complex ---
PDI Med Rec & Follow Up Appt. New Medications: Lactobacillus Acidophilus (Acidophilus) 1 Each Tablet 1 EACH PO TID for 10 Days, #30 TAB Azithromycin (Azithromycin) 250 Mg Tablet 250 MG PO DAILY for 4 Days, #4 TAB Digoxin (Digox) 125 Mcg Tablet 0.125 MG PO HS for 30 Days, #30 TAB 3 Refills Continued Medications: Albuterol Sulfate (Proair Hfa) 8.5 Gm Hfa.aer.ad 2 PUFF INH Q4H PRN for SHORTNESS OF BREATH, INHALER Albuterol Sulfate (Albuterol Sulfate) 2.5 Mg/3 Ml Vial.neb 2.5 MG IH Q4H PRN for SHORTNESS OF BREATH, EA Alprazolam (Alprazolam) 0.5 Mg Tablet 0.5 MG PO TID PRN for ANXIETY, TAB Apixaban (Eliquis) 5 Mg Tablet 5 MG PO BID, TAB Aspirin (Aspirin EC) 81 Mg Tablet.dr 81 MG PO HS, TAB Budesonide/Formoterol Fumarate (Symbicort 160-4.5 Mcg Inhaler) 10.2 Gm Hfa.aer.ad 2 PUFF IH BID, INHALER Calcium Carbonate (Tums Ultra Strength) 1,177 Mg Tab.chew 2 TAB PO TID PRN for INDIGESTION, TAB Colestipol HCl (Colestipol HCl) 1 Gm Tablet 1 GM PO BID, TAB Cyclobenzaprine HCl (Cyclobenzaprine HCl) 10 Mg Tablet 10 MG PO Q8H PRN for MUSCLE SPASMS, TAB Diltiazem HCl (Cartia Xt) 240 Mg Cap.er.24h 240 MG PO DAILY, CAP Diphenhydramine HCl (Benadryl) 25 Mg Capsule 50 MG PO QID PRN for ITCHING, CAP Duloxetine HCl (Duloxetine HCl) 60 Mg Capsule.dr 60 MG PO DAILY, CAP TAKES ALONG WITH 30MG CAPSULES FOR A TOTAL DAILY DOSE OF 90MG Duloxetine HCl (Duloxetine HCl) 30 Mg Capsule.dr 30 MG PO DAILY, CAP TAKES ALONG WITH 60MG CAPSULE FOR A TOTAL DAILY DOSE OF 90MG Ergocalciferol (Vitamin D2) (Vitamin D2) 50,000 Unit Capsule 44457 UNIT PO Mo, CAP Fexofenadine HCl (Fexofenadine HCl) 180 Mg Tablet 180 MG PO BID, TAB Flecainide Acetate (Flecainide Acetate) 100 Mg Tablet 100 MG PO BID, TAB Fluticasone Propionate (Fluticasone Propionate) 16 Gm Vera.susp 1 SPRAY NS HS, EA Furosemide (Furosemide) 40 Mg Tablet 40 MG PO 1000,1500, TAB Gabapentin (Gabapentin) 600 Mg Tablet 900 MG PO TID, TAB TAKES 1 & 1/2 (600MG) TABLETS Hydrocodone/Acetaminophen (Hydrocodon-Acetaminophn 10-325) 1 Each Tablet 1-2 TAB PO Q6H PRN for PAIN-MODERATE, TAB ONLY TAKES WHEN OUT OF PERCOCET Insulin Detemir (Levemir Flextouch) 100 Unit/1 Ml Insuln.pen 50 UNITS SC BID, EA Levothyroxine Sodium (Levothyroxine Sodium) 88 Mcg Tablet 88 MCG PO DAILY, TAB LAST FILLED #30 17 Metoprolol Succinate (Metoprolol Succinate) 100 Mg Tab.er.24h 100 MG PO BID, TAB Montelukast Sodium (Montelukast Sodium) 10 Mg Tablet 10 MG PO HS, TAB Naphazoline HCl/Pheniramine (Eye Allergy Relief Drops) 15 Ml Drops 1-2 DROP OU QID PRN for ALLERGIES, DROPS Nystatin (Nystatin) 1 Each Powder.ea. TOP QID PRN for RASH, UNIT Oxycodone HCl/Acetaminophen (Oxycodone-Acetaminophen 10-325) 1 Each Tablet 1-2 TAB PO Q6H PRN for PAIN-MODERATE, TAB Pantoprazole Sodium (Pantoprazole Sodium) 40 Mg Tablet.dr 40 MG PO BID, TAB Promethazine HCl (Promethazine Tablet) 25 Mg Tablet 25 MG PO Q8H PRN for NAUSEA/VOMITING-2ND LINE, TAB Ropinirole HCl (Ropinirole HCl) 1 Mg Tablet 0.5 MG PO HS, TAB TAKES 1/2 (1MG) TABLET Prescription: Transmitted to Pharmacy Patient Instructions: DO NOT SE [facility] UNTIL 1 WEEK FROM TODAY - LONG YOU ARE FEVER FREE IN ONE WEEK Activity, Diet and PDI Resume Normal Activity: Yes Discharge Diet: Regular Diet Drink 6-8 Glasses of Fluid/Day: Yes Symptoms to Reoprt to : Fever Over 101 Degrees F, Pain/Pressure in Chest, Diarrhea(Persistant), Nausea/Vomiting, Shortness of Breath DAISY JOHNSON MD Feb 06, 2017 09:24
--- NOTE | 2017-02-06 10:23 | Diagnostic Imaging Report ---
EXAMINATION: Three views of the right shoulder. INDICATION: Decreased range of motion. Right shoulder pain. FINDINGS: There is no fracture, dislocation, or radiopaque foreign body. The acromioclavicular joint demonstrates degenerative changes with inferior and superior osteophytes. The glenohumeral joint appears unremarkable. IMPRESSION: The acromioclavicular joint demonstrates osteoarthritis. Dictated by: Dictated on workstation # [id number]
--- NOTE | 2017-02-06 10:29 | Diagnostic Imaging Report ---
EXAMINATION: Two views of the right humerus. INDICATION: Right shoulder pain. Decreased range of motion. FINDINGS: The right humerus demonstrates no fracture or dislocation. No radiopaque foreign body. No suspicious focal lesion is identified. IMPRESSION: Unremarkable exam. Dictated by: Dictated on workstation # [id number]
[2017-02-06 14:02] VITALS: BP 120/88
== END 2017-02-06 11:43 | disposition home or self-care (01) | DRG 292 ==
LOC: EDUNIT# 11:56 → ER 11:57 → 4TH 13:40 → EDPENDDISTM 02-06 09:16
PROVIDERS: ADMIT Internal Medicine; ATTEND Family Medicine
DX: I50.33 Acute on chronic diastolic (congestive) heart failure (principal); K52.9 Noninfective gastroenteritis and colitis, unspecified; I48.0 Paroxysmal atrial fibrillation; J44.1 Chronic obstructive pulmonary disease with (acute) exacerbation; E11.65 Type 2 diabetes mellitus with hyperglycemia; I25.10 Atherosclerotic heart disease of native coronary artery without angina pectoris; I10 Essential (primary) hypertension; K21.9 Gastro-esophageal reflux disease without esophagitis; E03.9 Hypothyroidism, unspecified; E78.5 Hyperlipidemia, unspecified; Z79.4 Long term (current) use of insulin
CPT/HCPCS: 36415; 71010; 73030; 73060; 80048; 80053; 80162; 82962; 83605; 83735; 83880; 84443; 84484; 85025; 85610; 85730; 87040; 93005; 93308; 94640; 94760; 96365; 96375; 96376

== ENCOUNTER 2017-02-16 14:49 | Emergency (ER) | payer MEDICARE ==
[~2017-02-16] VITALS: Ht 157.5 cm; Wt 109.8 kg
[~2017-02-16 14:49] MED LIST changes: +ALBU2.5V4 IH; +ASPI-983 PO; +AZIT250T5 PO; +BUDE10.2 IH; +CALC117719 PO; +DIGO125T18 PO; +DIPH25CA79 PO; +DULO30CA48 PO; +ERGO50006 PO; +FEXO-46 PO; +LACT1TAB9 PO; +METO-274 PO; -METO-395 PO; +NAPH15DR8 OU; +NYST1POW22 TOP; +OXYC-465 PO
--- NOTE | 2017-02-16 16:03 | Diagnostic Imaging Report ---
INDICATION: Dyspnea with nausea and emesis. EXAMINATION: Portable upright view of the chest is obtained. COMPARISON: Comparison is made to study of 02/03/2017. FINDINGS: Cardiomegaly persists. There is decreased pulmonary venous congestion and interstitial prominence. No pneumothorax or consolidation is identified. There is no significant pleural fluid. IMPRESSION: Improving pulmonary venous congestion and probable interstitial pulmonary edema. No new abnormality is identified. Dictated by: Dictated on workstation # [id number]
--- NOTE | 2017-02-16 16:14 | ED General ---
General Chief Complaint: Abdominal/GI Problems Stated Complaint: SOB/PAIN IN SIDE Source of Information: Patient, Old Records History of Present Illness Time Seen by Provider: 14:58 Initial Comments PT ARRIVES VIA POV--WANTS ASSISTANCE OUT OF VEHICLE AND WANTS WHEELCHAIR MULTIPLE COMPLAINTS--ALL ARE CHRONIC ON FURTHER QUESTIONING--PT TAKES OXYCODONE FOR MULTIPLE CHRONIC PAIN ISSUES PT STATES "HER WHOLE RIGHT SIDE HURTS" STATES SHE BEGAN HAVING RIGHT LOWER ABDOMINAL PAIN THAT MOVED ALL ACROSS HER LOWER ABDOMEN AND THEN INTO HER BACK, THEN IT MOVED DOWN HER RIGHT LEG, AND THEN ACROSS TO HER LEFT GROIN/HIP AREA, THEN ALL THE WAY UP HER RIGHT SIDE TO HER RIGHT SHOULDER AND HER RIGHT ARM AND THEN TO THE RIGHT SIDE OF HER NECK AND THEN BACK DOWN ALL ACROSS HER LOWER BACK--STATES THIS STARTED ON MONDAY PT HAS CHRONIC BACK PAIN WITH SCIATICA, AND HAS CHRONIC RIGHT NECK/TRAPEZIUS/ SHOULDER PAIN ALSO C/O FEELING LIKE SHE IS "FILLING UP WITH FLUID AGAIN" AND IT MAKES IT HARD TO BREATHE-- PT HAS COPD, AND IS ON HOME O2 AT 2 1/2-3L/NC CONTINUOUSLY C/O FEELING GENERALLY WEAK AND TIRED. USES A CANE TO WALK NO COUGH NO FEVER NO NAUSEA/VOMITING/DIARRHEA NO PROBLEMS URINATING WAS ADMITTED 2 WEEKS AGO FOR RESPIRATORY ILLNESS, AND DISMISSED HOME ON ZITHROMAX. NO OTHER MEDICATION CHANGES PT SAW DR. JOHNSON ON MONDAY FOR FOLLOW UP FROM HOSPITALIZATION--DID NOT MENTION THESE COMPLAINTS AT THAT TIME PCP: DR. JOHNSON SUPERVISOR GRADING: DR. CLEMENTE MARKETING ANALYTICS ANALYST: DR. WU Allergies and Home Medications Allergies Coded Allergies: Penicillins (Verified Allergy, Severe, SWELLING, HIVES, THROAT SWELLED, 01/21/16) PATIENT HAS RECEIVED CEFEPIME WITHOUT ISSUE Sulfa (Sulfonamide Antibiotics) (Verified Allergy, Severe, TONGUE SWELLED , 01/21/16) Tetanus & Diphtheria Tox,Adult (Verified Allergy, Severe, SWELLING OF THROAT, 01/21/16) codeine (Verified Allergy, Unknown, HAS RECEIVED LORTAB IN THE PAST, ) egg (Unverified Allergy, Unknown, 06/29/16) FROM UNCODED ALLERGIES Home Medications Albuterol Sulfate 8.5 Gm Hfa.aer.ad, 2 PUFF INH Q4H PRN for SHORTNESS OF BREATH, (Reported) Albuterol Sulfate 2.5 Mg/3 Ml Vial.neb, 2.5 MG IH Q4H PRN for SHORTNESS OF BREATH, (Reported) Alprazolam 0.5 Mg Tablet, 0.5 MG PO TID PRN for ANXIETY, (Reported) Apixaban 5 Mg Tablet, 5 MG PO BID, (Reported) Aspirin 81 Mg Tablet.dr, 81 MG PO HS, (Reported) Azithromycin 250 Mg Tablet, 250 MG PO DAILY for 4 Days, #4 Prescribed by: DAISY JOHNSON on 02/06/17 0920 Budesonide/Formoterol Fumarate 10.2 Gm Hfa.aer.ad, 2 PUFF IH BID, (Reported) Calcium Carbonate 1,177 Mg Tab.chew, 2 TAB PO TID PRN for INDIGESTION, (Reported ) Colestipol HCl 1 Gm Tablet, 1 GM PO BID, (Reported) Cyclobenzaprine HCl 10 Mg Tablet, 10 MG PO Q8H PRN for MUSCLE SPASMS, (Reported) Digoxin 125 Mcg Tablet, 0.125 MG PO HS for 30 Days, #30 Ref 3 Prescribed by: DAISY JOHNSON on 02/06/1720 Diltiazem HCl 240 Mg Cap.er.24h, 240 MG PO DAILY, (Reported) Diphenhydramine HCl 25 Mg Capsule, 50 MG PO QID PRN for ITCHING, (Reported) Duloxetine HCl 60 Mg Capsule.dr, 60 MG PO DAILY, (Reported) TAKES ALONG WITH 30MG CAPSULES FOR A TOTAL DAILY DOSE OF 90MG Duloxetine HCl 30 Mg Capsule.dr, 30 MG PO DAILY, (Reported) TAKES ALONG WITH 60MG CAPSULE FOR A TOTAL DAILY DOSE OF 90MG Ergocalciferol (Vitamin D2) 50,000 Unit Capsule, 50,000 UNIT PO Mo, (Reported) Fexofenadine HCl 180 Mg Tablet, 180 MG PO BID, (Reported) Flecainide Acetate 100 Mg Tablet, 100 MG PO BID, (Reported) Fluticasone Propionate 16 Gm [place].susp, 1 SPRAY NS HS, (Reported) Furosemide 40 Mg Tablet, 40 MG PO 1000,1500, (Reported) Gabapentin 600 Mg Tablet, 900 MG PO TID, (Reported) TAKES 1 & 1/2 (600MG) TABLETS Hydrocodone/Acetaminophen 1 Each Tablet, 1-2 TAB PO Q6H PRN for PAIN-MODERATE, ( Reported) ONLY TAKES WHEN OUT OF PERCOCET Insulin Detemir 100 Unit/1 Ml Insuln.pen, 50 UNITS SC BID, (Reported) Lactobacillus Acidophilus 1 Each Tablet, 1 EACH PO TID for 10 Days, #30 Prescribed by: DAISY JOHNSON on 02/06/17 0920 Levothyroxine Sodium 88 Mcg Tablet, 88 MCG PO DAILY, (Reported) LAST FILLED #30 08-19-16 Metoprolol Succinate 100 Mg Tab.er.24h, 100 MG PO BID, (Reported) Montelukast Sodium 10 Mg Tablet, 10 MG PO HS, (Reported) Naphazoline HCl/Pheniramine 15 Ml Drops, 1-2 DROP OU QID PRN for ALLERGIES, ( Reported) Nystatin 1 Each Powder.ea., TOP QID PRN for RASH, (Reported) Oxycodone HCl/Acetaminophen 1 Each Tablet, 1-2 TAB PO Q6H PRN for PAIN-MODERATE, (Reported) Pantoprazole Sodium 40 Mg Tablet.dr, 40 MG PO BID, (Reported) Promethazine HCl 25 Mg Tablet, 25 MG PO Q8H PRN for NAUSEA/VOMITING-2ND LINE, ( Reported) Ropinirole HCl 1 Mg Tablet, 0.5 MG PO HS, (Reported) TAKES 1/2 (1MG) TABLET Constitutional: see HPI, No fever, weakness EENTM: no symptoms reported Respiratory: see HPI, short of breath Cardiovascular: see HPI, chest pain Gastrointestinal: see HPI, abdominal pain, No diarrhea, No loss of appetite, No nausea, No vomiting Genitourinary: no symptoms reported Musculoskeletal: see HPI, back pain, muscle pain, neck pain Skin: no symptoms reported Psychiatric/Neurological: No Symptoms Reported, Denies Headache, Denies Numbness, Denies Paresthesia Hematologic/Lymphatic: No Symptoms Reported Immunological/Allergic: no symptoms reported Past Lzhumht-Lkuseh-Hfugyo Hx Patient Social History Alcohol Use: Denies Use Recreational Drug Use: No Smoking Status: Never a Smoker 2nd Hand Smoke Exposure: No Recent Foreign Travel: No Contact w/Someone Who Travel: No Recent Hopitalizations: Yes (LAST WEEK) Physical Abuse: No Sexual Abuse: No Immunizations Up To Date Tetanus Booster (TDap): Unknown Date of Pneumonia Vaccine: Jan 31, 2012 Seasonal Allergies Seasonal Allergies: Yes Surgeries History of Surgeries: Yes (KNEE SCOPES X3 - D&C'S; CARDIAC ABLATION FOR A. FIB ) Surgeries: Appendectomy, Breast, Cardiac, Section, Gallbladder, 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, Oophorectomy, Orthopedic, Tonsillectomy Respiratory History of Respiratory Disorde: Yes Respiratory Disorders: Asthma, Sleep Apnea, COPD Currently Using CPAP: Yes Currently Using BIPAP: No Cardiovascular History of Cardiac Disorders: Yes Cardiac Disorders: Atrial Fibrillation, Chronic Edema/Swelling, Coronary Artery Disease, High Cholesterol, Hypertension, Palpitations Neurological History of Neurological Disord: Yes (VINES'S PALSY) Neurological Disorders: Neuropathy Reproductive System Hx Reproductive Disorders: No Sexually Transmitted Disease: No HIV/AIDS: No 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 CARE History: 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, Menopausal Genitourinary History of Genitourinary Disor: Yes Genitourinary Disorders: UTI-Chronic Gastrointestinal History of Gastrointestinal Di: Yes Gastrointestinal Disorders: Colitis, Gastroesophageal Reflux, Diverticulosis, Irritable Bowel Musculoskeletal History of Musculoskeletal Dis: Yes (SCIATICA, CHRONIC NECK AND SHOULDER PAIN ) Musculoskeletal Disorders: Arthritis, Fibromyalgia, Chronic Back Pain Endocrine History of Endocrine Disorders: Yes Endocrine Disorders: Diabetes, Insulin dep, Hypothyroidsim HEENT History of HEENT Disorders: No HEENT Disorders: Tonsilitis Loss of Vision: Denies Hearing Impairment: Denies Cancer History of Cancer: No Psychosocial History of Psychiatric Problem: Yes Behavioral Health Disorders: Anxiety, Depression Suicide Risk Score: 0 Integumentary History of Skin or Integumenta: No Blood Transfusions History of Blood Disorders: Yes (CHRONIC ANEMIA) Adverse Reaction to a Blood Tr: No Family Medical History Significant Family History: Heart Disease, Diabetes, GI Disease, Hypertension, Stroke Family Medial History: Cardiovascular disease 19 FATHER 19 MOTHER Diabetes mellitus 19 MOTHER Irritable bowel syndrome G8 BROTHER Myocardial infarction 19 FATHER 19 MOTHER TIAs 19 MOTHER Physical Exam Vital Signs Vital Sign - Last 12Hours 02/16/17 14:50 Temp 97.2 Pulse 86 Resp 18 B/P (MAP) 122/60 Pulse Ox 96 O2 Delivery Nasal Cannula O2 Flow Rate 3.00 Capillary Refill : General Appearance: Obese, Other (VERY DROWSY--APPEARS OVER-MEDICATED. FALLS ASLEEP MID-SENTENCE, AROUSES TO TACTILE AND VERBAL STIMULI AND THEN QUICKLY GOES BACK TO SLEEP--SLEPT THROUGH MULTIPLE IV STICKS) HEENT: Other (DRY ORAL MUCOSA. PUPILS PINPOINT) Neck: Full Range of Motion, Normal Inspection, No JVD Respiratory: Normal Breath Sounds, No Accessory Muscle Use, No Respiratory Distress Cardiovascular: Regular Rate, Rhythm, No Murmur, Normal Peripheral Pulses Gastrointestinal: Normal Bowel Sounds, Soft, Tenderness (MILD DIFFUSE LOWER ABDOMINAL TENDERNESS) Back: CVA Tenderness (L), CVA Tenderness (R) Extremity: Normal Range of Motion, Non Tender, No Calf Tenderness, Pedal Edema (1+ BILATERALLY) Neurologic/Psychiatric: Alert, Oriented x3, No Motor/Sensory Deficits, advertisement compositor II- XII Norm as Tested, Other (VERY DROWSY--APPEARS OVER-MEDICATED. ) Skin: Normal Color, Warm/Dry Progress/Results/Core Measures Results/Orders Lab Results Laboratory Tests Test 02/16/17 16:01 02/16/17 16:15 02/16/17 18:08 02/16/17 18:55 Range/Units Glucometer 284 H 70-110 MG/DL White Blood Count 12.7 H 4.3-11.0 10^3/uL Red Blood Count 3.49 L 4.35-5.85 10^6/uL Hemoglobin 9.5 L 11.5-16.0 G/DL Hematocrit 31 L 35-52 % Mean Corpuscular Volume 89 80-99 FL Mean Corpuscular Hemoglobin 27 25-34 PG Mean Corpuscular Hemoglobin Concent 31 L 32-36 G/DL Red Cell Distribution Width 14.8 H 10.0-14.5 % Platelet Count 310 130-400 10^3/uL Mean Platelet Volume 10.2 7.4-10.4 FL Neutrophils (%) (Auto) 76 H 42-75 % Lymphocytes (%) (Auto) 16 12-44 % Monocytes (%) (Auto) 7 0-12 % Eosinophils (%) (Auto) 1 0-10 % Basophils (%) (Auto) 0 0-10 % Neutrophils # (Auto) 9.7 H 1.8-7.8 X 10^3 Lymphocytes # (Auto) 2.1 1.0-4.0 X 10^3 Monocytes # (Auto) 0.8 0.0-1.0 X 10^3 Eosinophils # (Auto) 0.1 0.0-0.3 10^3/uL Basophils # (Auto) 0.0 0.0-0.1 10^3/uL Prothrombin Time 17.0 H 12.2-14.7 SEC INR Comment 1.4 0.8-1.4 Activated Partial Thromboplast Time 41 H 24-35 SEC Sodium Level 134 L 135-145 MMOL/L Potassium Level 2.9 L 3.6-5.0 MMOL/L Chloride Level 90 L 98-107 MMOL/L Carbon Dioxide Level 30 21-32 MMOL/L Anion Gap 14 5-14 MMOL/L Blood Urea Nitrogen 10 7-18 MG/DL Creatinine 1.02 0.60-1.30 MG/DL Estimat Glomerular Filtration Rate 54 BUN/Creatinine Ratio 10 Glucose Level 295 H 70-105 MG/DL Calcium Level 8.9 8.5-10.1 MG/DL Magnesium Level 1.7 L 1.8-2.4 MG/DL Total Bilirubin 0.6 0.1-1.0 MG/DL Aspartate Amino Transf (AST/SGOT) 16 5-34 U/L Alanine Aminotransferase (ALT/SGPT) 20 0-55 U/L Alkaline Phosphatase 140 H 40-136 U/L Total Creatine Kinase 33 29-168 U/L Creatine Kinase MB 0.5 <6.6 NG/ML Troponin I < 0.30 <0.30 NG/ML B-Type Natriuretic Peptide 122.3 H <100.0 PG/ML Total Protein 6.7 6.4-8.2 GM/DL Albumin 3.5 3.2-4.5 GM/DL Digoxin Level < 0.30 L 0.80-2.00 NG/ML Blood Gas Puncture Site RT RAD Blood Gas Patient Temperature 96.7 Arterial Blood pH 7.41 7.37-7.43 Arterial Blood Partial Pressure CO2 56 H 35-45 MMHG Arterial Blood Partial Pressure O2 106 H 79-93 MMHG Arterial Blood HCO3 35 H 23-27 MMOL/L Arterial Blood Total CO2 36.7 H 21.0-31.0 MMOL/L Arterial Blood Oxygen Saturation 99 94-100 % Arterial Blood Base Excess 9.8 H -2.5-2.5 MMOL/L Gómez Test YES-POS Blood Gas Ventilator Setting NO Blood Gas Inspired Oxygen 3L Urine Color YELLOW Urine Clarity CLEAR Urine pH 6.5 5-9 Urine Specific [place] 1.010 L 1.016-1.022 Urine Protein 1+ H NEGATIVE Urine Glucose (UA) NEGATIVE NEGATIVE Urine Ketones NEGATIVE NEGATIVE Urine Nitrite NEGATIVE NEGATIVE Urine Bilirubin NEGATIVE NEGATIVE Urine Urobilinogen NORMAL NORMAL MG/DL Urine Leukocyte Esterase 1+ H NEGATIVE Urine RBC (Auto) NEGATIVE NEGATIVE Urine RBC NONE /HPF Urine WBC 0-2 /HPF Urine Squamous Epithelial Cells 2-5 /HPF Urine Crystals NONE /LPF Urine Bacteria NEGATIVE /HPF Urine Casts NONE /LPF Urine Mucus NEGATIVE /LPF Urine Culture Indicated NO My Orders Orders - WOODY CHEN DO Saline Lock/Iv-Start (02/16/17 15:23) Ekg Tracing (02/16/17 15:23) O2 (02/16/17 15:23) Monitor-Rhythm Ecg Trace Only (02/16/17 15:23) BNP (02/16/17 15:23) Cbc With Automated Diff (02/16/17 15:23) Comprehensive Metabolic Panel (02/16/17 15:23) Creatine Kinase (02/16/17 15:23) Creatine Kinase Mb (02/16/17 15:23) Magnesium (02/16/17 15:23) Protime With Inr (02/16/17 15:23) Partial Thromboplastin Time (02/16/17 15:23) Troponin I (02/16/17 15:23) Ua Culture If Indicated (02/16/17 15:23) Chest 1 View, Ap/Pa Only (02/16/17 15:23) Digoxin (02/16/17 15:26) Ct Lucy Chest/Noang Abd-Pelv W (02/16/17 17:20) Magnesium 1 Gm/100 Ml Ivpb (Magnesium Horn (02/16/17 17:30) Magnesium Oxide Tablet (Mag Ox Tablet) (02/16/17 17:30) Potassium Chloride (Tablet) (Klor Con Ta (02/16/17 17:30) Iohexol Injection (Omnipaque 350 Mg/Ml 1 (02/16/17 17:30) Ns (Ivpb) (Sodium Chloride 0.9% Ivpb Bag (02/16/17 17:30) Pharmacy Communication (Pharmacy Communi (02/16/17 17:23) Arterial Blood Gas (02/16/17 17:31) Medications Given in ED Current Medications Medications Dose Ordered Sig/Jorge Route Start Time Stop Time Status Last Admin Dose Admin Iohexol 150 ml ONCE ONCE IV 02/16/17 17:30 02/16/17 17:33 DC 02/16/17 17:44 115 ML Magnesium Oxide 800 mg ONCE ONCE PO 02/16/17 17:30 02/16/17 17:31 DC 02/16/17 18:03 800 MG Magnesium Sulfate/ Dextrose 100 ml @ 100 mls/hr ONCE ONCE IV 02/16/17 17:30 02/16/17 18:29 DC 02/16/17 18:04 100 MLS/HR Potassium Chloride 40 meq ONCE ONCE PO 02/16/17 17:30 02/16/17 17:31 DC 02/16/17 18:03 40 MEQ Sodium Chloride 100 ml ONCE ONCE IV 02/16/17 17:30 02/16/17 17:33 DC 02/16/17 17:44 80 ML Vital Signs/I&O Vital Sign - Last 12Hours 02/16/17 02/16/17 02/16/17 14:50 14:50 19:37 Temp 97.2 97.1 Pulse 86 72 Resp 18 18 B/P (MAP) 122/60 Pulse Ox 96 96 99 O2 Delivery Nasal Cannula Nasal Cannula O2 Flow Rate 3.00 3.00 Intake and Output 02/17/17 00:00 Intake Total 100 ml Balance 100 ml Progress Note : Progress Note LITERALLY SLEPT THROUGH ENTIRE ER STAY--BRIEFLY ROUSING TO VERBAL AND TACTILE STIMULI, THEN GOING STRAIGHT BACK TO SLEEP PT ABLE TO STAND AND TRANSFER TO BEDSIDE COMMODE X 2 DURING ER STAY. NO COMPLAINTS OF PAIN UNTIL SHE WAS TOLD SHE WAS BEING DISMISSED. ADVISED PT THAT SHE MAY TAKE HER HOME OXYCODONE FOR PAIN NO DETERIORATION IN PT'S CONDITION DURING ER STAY ECG Initial ECG Impression Time: 15:57 Initial ECG Rate: 75 Initial ECG Rhythm: Normal Sinus Initial ECG Impression: Nonspecific Changes Initial ECG Comparisson: No Previous ECG Available Diagnostic Imaging Comments CXR--IMPROVING PULMONARY VASCULAR CONGESTION AND PULMONARY EDEMA--PER RADIOLOGIST REPORT @ 1614 CT CHEST/ABDOMEN/PELVIS--NO ACUTE FINDINGS, CHRONIC /STABLE CHANGES--PER RADIOLOGIST REPORT @ 1836 Reviewed: Reviewed by Me Departure Communication (PCP) 1837--ATTEMPTING TO CONTACT DR. JOHNSON, MESSAGE LEFT ON CELL PHONE [phone]--SPOKE WITH DR. JOHNSON. SHE WILL FOLLOW UP WITH PT IN CLINIC. THIS IS NORMAL BEHAVIOR FOR PT, SHE HAS HISTORY OF OVER-MEDICATING WITH CERTAIN MEDICATIONS / PAIN PILLS AND FREQUENTLY DOES NOT TAKE OTHER MEDICATIONS. Impression Impression: Primary Impression: CHRONIC PAIN COMPLAINTS Additional Impressions: Hypomagnesemia Hypokalemia COPD Disposition: HOME, SELF-CARE Condition: Stable Departure-Patient Inst. Referrals: DAISY JOHNSON MD (PCP/Family) Primary Care Physician Patient Instructions: CHRONIC PAIN, COPD Including Emphysema (DC), Hypokalemia (DC), Low Magnesium Level (DC) Add. Discharge Instructions: TAKE YOUR MEDICATIONS PRESCRIBED FOLLOW UP WITH DR. JOHNSON NEXT WEEK FOR FURTHER CARE All discharge instructions reviewed with patient and/or family. Voiced understanding. WOODY CHEN DO Feb 16, 2017 16:14
[2017-02-16 16:40] LABS: INR 1.4 (0.8-1.4)
[2017-02-16 16:49] LABS: BASOPHILS % (AUTO) 0 % (0-10); EOSINOPHILS # (AUTO) 0.1 10^3/uL (0.0-0.3); EOSINOPHILS % (AUTO) 1 % (0-10); LYMPHOCYTES # (AUTO) 2.1 X 10^3 (1.0-4.0); LYMPHOCYTES % (AUTO) 16 % (12-44); MEAN CORPUSCULAR HEMOGLOBIN 27 PG (25-34); MEAN CORPUSCULAR HGB CONC 31 G/DL (32-36); MEAN CORPUSCULAR VOLUME 89 FL (80-99); MEAN PLATELET VOLUME 10.2 FL (7.4-10.4); MONOCYTES # (AUTO) 0.8 X 10^3 (0.0-1.0); MONOCYTES % (AUTO) 7 % (0-12); NEUTROPHILS # (AUTO) 9.7 X 10^3 (1.8-7.8); NEUTROPHILS % (AUTO) 76 % (42-75); PLATELET COUNT 310 10^3/uL (130-400); RED BLOOD COUNT 3.49 10^6/uL (4.35-5.85); RED CELL DISTRIBUTION WIDTH 14.8 % (10.0-14.5); WHITE BLOOD COUNT 12.7 10^3/uL (4.3-11.0)
[2017-02-16 16:51] LABS: ALANINE AMINOTRANSFERASE 20 U/L (0-55); ALBUMIN 3.5 GM/DL (3.2-4.5); ANION GAP 14 MMOL/L (5-14); ASPARTATE AMINO TRANSFERASE 16 U/L (5-34); BILIRUBIN,TOTAL 0.6 MG/DL (0.1-1.0); BLOOD UREA NITROGEN 10 MG/DL (7-18); BUN/CREATININE RATIO 10; CALCIUM 8.9 MG/DL (8.5-10.1); CARBON DIOXIDE 30 MMOL/L (21-32); CHLORIDE 90 MMOL/L (98-107); CREATINE KINASE 33 U/L (29-168); CREATININE SERUM 1.02 MG/DL (0.60-1.30); GFR ESTIMATED 54; GLUCOSE 295 MG/DL (70-105); MAGNESIUM 1.7 MG/DL (1.8-2.4); POTASSIUM 2.9 MMOL/L (3.6-5.0); SODIUM 134 MMOL/L (135-145); TOTAL PROTEIN 6.7 GM/DL (6.4-8.2)
[2017-02-16 17:00] LABS: DIGOXIN < 0.30 NG/ML (0.80-2.00); TROPONIN I < 0.30 NG/ML (<0.30)
[2017-02-16] MEDS ORDERED: MAGNESIUM 1 GM/100 ML IVPB 100 ML IV ONE (17:30)
[2017-02-16] MEDS ORDERED: IOHEXOL 350 MG/ML 150 ML (OMNIPAQUE 350) VIAL IV ONE (17:30)
[2017-02-16] MEDS ORDERED: NS 100 ML (IVPB) BAG IV ONE (17:30)
[2017-02-16] MEDS ORDERED: KCL 10 MEQ TAB (MICRO K) PO ONE (17:30)
[2017-02-16] MEDS ORDERED: MAGNESIUM OXIDE (MAG-OX)400 MG TAB PO ONE (17:30)
[2017-02-16 18:23] LABS: ABG BASE EXCESS 9.8 MMOL/L (-2.5-2.5); ABG HCO3 35 MMOL/L (23-27); ABG OXYGEN SATURATION 99 % (94-100); ABG PCO2 56 MMHG (35-45); ABG PH 7.41 (7.37-7.43); ABG PO2 106 MMHG (79-93); ABG TCO2 36.7 MMOL/L (21.0-31.0); ALLENS TEST YES-POS; PATIENT TEMP 96.7
--- NOTE | 2017-02-16 18:28 | Diagnostic Imaging Report ---
EXAM: CT chest, abdomen and pelvis with intravenous contrast. TECHNIQUE: Axial CT images of the chest, abdomen and pelvis were obtained. Three-dimensional MIP reformats of the chest were provided. Coronal reformats of the abdomen and pelvis were provided. DATE: February 16, 2017. COMPARISON: February 16, [address] chest of January 11, 2017. INDICATION: 66-year-old female, right lower quadrant pain for seven days. Diarrhea. FINDINGS: There is a 4 mm noncalcified left lower lobe pulmonary nodule on axial image 83. This is unchanged since 07/11/10. This is compatible with benign etiology. There is also a stable 5 mm right lower lobe pulmonary nodule. There are linear opacities in the left lower lobe likely relating to very mild scarring. There are dependent linear opacities in the right and left lower lobes most likely relating to atelectasis. There is mild mosaic lung attenuation which may potentially relate to small airways disease and air-trapping. There is no identified additional airspace consolidation. There is no pneumothorax. There is no pleural effusion. There is no identified pulmonary embolus. The main pulmonary artery is normal in caliber. There is no identified pericardial effusion. There are atherosclerotic calcifications. There is no identified abnormally enlarged mediastinal, hilar or axillary lymph note which meets CT size criteria for adenopathy. The liver appears diffusely low in attenuation compatible with diffuse fatty infiltration of the liver. The outer liver contours are not grossly nodular. The patient is status post cholecystectomy. There is no intrahepatic or extrahepatic bile duct dilation. The main pancreatic duct is not abnormally dilated. The pancreatic parenchyma is unremarkable. The spleen is normal in size. The adrenal glands are unremarkable. Unremarkable appearance of the renal parenchyma. The urinary collecting systems are not distended. There is no identified renal or ureteral stone. The urinary bladder is unremarkable. Uterus is not seen and may be surgically absent. There are postoperative changes of bowel with sutures in the region of the cecum. The intestinal tract is not distended. There is no identified prominent abnormal bowel wall thickening. There is no free intraperitoneal air. There is no drainable fluid collection. There is no free pelvic fluid. There are atherosclerotic calcifications. There is no identified lymph node in the abdomen or pelvis which specifically meets CT size criteria for adenopathy. There are multilevel degenerative changes of the spine. There is no identified acute bony abnormality. There are scattered small sclerotic foci within the right and left proximal femur and pelvis without overtly destructive bone lesion. These are not specific. The appearance is similar dating back to CT abdomen and pelvis of November 03, 2011. These may potentially relate to multiple benign bone islands. IMPRESSION: CT CHEST, ABDOMEN AND PELVIS: 1. Mosaic lung attenuation which may potentially reflect small airways disease and air-trapping. 2. No identified pulmonary embolus or other acute cardiopulmonary abnormality. 3. Diffuse fatty infiltration of the liver. 4. No identified acute abnormality within the abdomen or pelvis. 5. There is a 4 mm noncalcified left lower lobe pulmonary nodule and 5 mm right lower lobe pulmonary nodule, stable since at least November 10, 2010. This is compatible with benign etiology. Dictated by: Dictated on workstation # [id number]
[2017-02-16 19:08] LABS: BILIRUBIN,URINE NEGATIVE (NEGATIVE); KETONES,URINE NEGATIVE (NEGATIVE); LEUKOCYTE ESTERASE ,URINE 1+ (NEGATIVE); NITRITE,URINE NEGATIVE (NEGATIVE); PH,URINE 6.5 (5-9); PROTEIN,URINE 1+ (NEGATIVE); UROBILINOGEN,URINE NORMAL (NORMAL)
[2017-02-16 19:21] LABS: WBC,URINE 0-2 /HPF
[2017-02-16 19:37] VITALS: BP 90/69
== END 2017-02-16 19:33 | disposition home or self-care (01) ==
LOC: EDUNIT# 14:49 → ER 14:51
DX: M54.5 Low back pain (principal); M54.2 Cervicalgia; M25.511 Pain in right shoulder; G89.29 Other chronic pain; E83.42 Hypomagnesemia; E87.6 Hypokalemia; J44.9 Chronic obstructive pulmonary disease, unspecified; G47.30 Sleep apnea, unspecified; I48.91 Unspecified atrial fibrillation; I25.10 Atherosclerotic heart disease of native coronary artery without angina pectoris; E78.00 Pure hypercholesterolemia, unspecified; I10 Essential (primary) hypertension; G51.0 Bell's palsy; K21.9 Gastro-esophageal reflux disease without esophagitis; M19.90 Unspecified osteoarthritis, unspecified site; E11.40 Type 2 diabetes mellitus with diabetic neuropathy, unspecified; E03.9 Hypothyroidism, unspecified; F41.9 Anxiety disorder, unspecified; F32.9 Major depressive disorder, single episode, unspecified; Z82.49 Family history of ischemic heart disease and other diseases of the circulatory system; Z87.19 Personal history of other diseases of the digestive system; Z87.440 Personal history of urinary (tract) infections; Z87.448 Personal history of other diseases of urinary system; Z79.01 Long term (current) use of anticoagulants; Z79.82 Long term (current) use of aspirin; Z79.4 Long term (current) use of insulin; Z90.710 Acquired absence of both cervix and uterus; Z90.89 Acquired absence of other organs
CPT/HCPCS: 36415; 71010; 71275; 74177; 80053; 80162; 81000; 82550; 82553; 82805; 82962; 83735; 83880; 84484; 85025; 85610; 85730; 93005; 93041; 96365

== ENCOUNTER → 2017-09-20 | Outpatient (CLI) | payer MEDICARE ==
[~2017-09-20] MED LIST changes: +AZIT250T12 PO; -AZIT250T5 PO; -HYDR-3816 PO; -METO-274 PO; +METO-395 PO
--- NOTE | 2017-09-20 14:03 | Diagnostic Imaging Report ---
INDICATION: Exacerbation of COPD. EXAMINATION: PA and lateral chest. FINDINGS: The heart size and pulmonary vascularity are normal. The lungs are clear. There are no effusions or pneumothoraces. IMPRESSION: Negative chest. Dictated by: Dictated on workstation # [id number]
[2017-09-20 14:18] LABS: HEMOGLOBIN 10.6 G/DL (11.5-16.0); MEAN PLATELET VOLUME 9.6 FL (7.4-10.4); RED BLOOD COUNT 3.85 10^6/uL (4.35-5.85); RED CELL DISTRIBUTION WIDTH 14.5 % (10.0-14.5); WHITE BLOOD COUNT 12.3 10^3/uL (4.3-11.0)
[2017-09-20 14:36] LABS: ALBUMIN 4.2 GM/DL (3.2-4.5); BILIRUBIN,TOTAL 0.4 MG/DL (0.1-1.0); CALCIUM 9.6 MG/DL (8.5-10.1); CREATININE SERUM 1.44 MG/DL (0.60-1.30); POTASSIUM 4.6 MMOL/L (3.6-5.0); TOTAL PROTEIN 7.9 GM/DL (6.4-8.2)
== END ==
LOC: RAD 13:47
PROVIDERS: ATTEND Internal Medicine Endocrinology, Diabetes & Metabolism
DX: J44.1 Chronic obstructive pulmonary disease with (acute) exacerbation (principal); E11.9 Type 2 diabetes mellitus without complications
CPT/HCPCS: 36415; 71046; 80053; 80061; 84443; 85027

== ENCOUNTER → 2017-09-27 | Outpatient (CLI) | payer MEDICARE ==
--- NOTE | 2017-09-27 13:27 | Diagnostic Imaging Report ---
PROCEDURE: CT head without contrast. TECHNIQUE: Multiple contiguous axial images were obtained through the brain without the use of intravenous contrast. INDICATION: Fall. Head injury. Anticoagulation therapy. COMPARISON: MRI brain without contrast 11/24/2016. FINDINGS: Moderate generalized cerebral and cerebellar parenchymal volume loss is age appropriate. No CT evidence of acute infarction. No intracranial hemorrhage, mass effect, hydrocephalus or extra-axial fluid collections. Osseous structures are intact. The paranasal sinuses and mastoids are unremarkable. IMPRESSION: No acute intracranial CT findings. Dictated by: Dictated on workstation # [id number]
== END ==
LOC: RAD 12:39
PROVIDERS: ATTEND Nurse Practitioner Family
DX: S09.90XA Unspecified injury of head, initial encounter (principal); W19.XXXA Unspecified fall, initial encounter; Z79.01 Long term (current) use of anticoagulants
CPT/HCPCS: 70450

== ENCOUNTER 2017-11-07 15:00 | Outpatient (RCR) | payer MEDICARE ==
[2017-10-12 15:00] VITALS: BP 114/74
[2017-10-12 15:50] VITALS: BP 123/60
[2017-10-19 15:00] VITALS: BP 100/60
[2017-10-19 16:00] VITALS: BP 120/60
[~2017-11-07 15:00] MED LIST changes: -CODE118S2 PO; +CODE118S4 PO; -IPRA3AMP NEB; +IPRA3AMP31 NEB
[2017-11-07 15:05] VITALS: BP 118/60
[2017-11-07 16:00] VITALS: BP 140/70
== END 2017-12-03 | disposition home or self-care (01) ==
LOC: PULM 15:00
PROVIDERS: ATTEND Nurse Practitioner Family
DX: J45.909 Unspecified asthma, uncomplicated (principal)
CPT/HCPCS: 99211

== ENCOUNTER → 2018-01-30 | Outpatient (CLI) | payer MEDICARE | END | disposition home or self-care (01) | LOC: PREOP 05:39 | PROVIDERS: ATTEND Surgery | DX: Z01.818 Encounter for other preprocedural examination (principal) ==

== ENCOUNTER → 2018-05-17 | Outpatient (CLI) | payer MEDICARE ==
--- NOTE | 2018-05-17 15:20 | Diagnostic Imaging Report ---
PROCEDURE: CT sinuses without contrast TECHNIQUE: Multiple contiguous axial images were obtained through the sinuses without the use of intravenous contrast. Coronal and sagittal reformations were then performed. INDICATION: Chronic sinusitis. There is opacification of the right half of the frontal sinus with mucosal thickening of the left half of frontal sinus. Ethmoid air cells are nearly completely opacified. There is also near complete opacification of the sphenoid sinus. Mucosal thickening of the left maxillary sinus is noted. More significant mucosal thickening in the right maxillary sinus is seen. The mastoids are well aerated. Ostiomeatal complexes are opacified bilaterally. IMPRESSION: Findings consistent with pansinusitis. Dictated by: Dictated on workstation # [id number]
== END ==
LOC: RAD 14:28
PROVIDERS: ATTEND Nurse Practitioner Family
DX: J32.9 Chronic sinusitis, unspecified (principal)
CPT/HCPCS: 70486

== ENCOUNTER 2018-05-21 16:28 | Outpatient (CLI) | payer MEDICARE ==
[~2018-05-21] VITALS: Ht 165.1 cm; Wt 99.8 kg
--- NOTE | 2018-05-21 16:48 | Diagnostic Imaging Report ---
PROCEDURE: CT head without contrast. TECHNIQUE: Multiple contiguous axial images were obtained through the brain without the use of intravenous contrast. INDICATION: Fell and hit head, slurred speech The ventricles are normal in size, shape and position. There are no masses or hemorrhages. There are no extra-axial fluid collections. Impression: Senescent changes of brain with diffuse cerebral degeneration. No acute abnormality seen. Dictated by: Dictated on workstation # [id number]
[2018-05-21] MEDS ORDERED: NS IV 1000 ML 1,000 ML IV SCH (17:30)
[2018-05-21 17:39] LABS: HEMOGLOBIN 11.5 G/DL (11.5-16.0); MEAN PLATELET VOLUME 10.3 FL (7.4-10.4); RED BLOOD COUNT 4.09 10^6/uL (4.35-5.85); RED CELL DISTRIBUTION WIDTH 15.9 % (10.0-14.5); WHITE BLOOD COUNT 12.4 10^3/uL (4.3-11.0)
[2018-05-21 18:00] LABS: ALBUMIN 3.9 GM/DL (3.2-4.5); BILIRUBIN,TOTAL 0.3 MG/DL (0.1-1.0); CALCIUM 9.2 MG/DL (8.5-10.1); CREATININE SERUM 1.26 MG/DL (0.60-1.30); POTASSIUM 3.8 MMOL/L (3.6-5.0); TOTAL PROTEIN 7.3 GM/DL (6.4-8.2)
[2018-05-21 19:00] VITALS: BP 122/73
[2018-05-21 21:33] LABS: BILIRUBIN,URINE NEGATIVE (NEGATIVE); CLARITY,URINE SLIGHTLY CLOUDY; COLOR,URINE YELLOW; GLUCOSE, URINE (UA) NEGATIVE (NEGATIVE); KETONES,URINE NEGATIVE (NEGATIVE); LEUKOCYTE ESTERASE ,URINE NEGATIVE (NEGATIVE); NITRITE,URINE NEGATIVE (NEGATIVE); PH,URINE 5 (5-9); PROTEIN,URINE 1+ (NEGATIVE); UROBILINOGEN,URINE NORMAL (NORMAL)
[2018-05-21 21:42] LABS: BACTERIA,URINE LARGE /HPF; RBC,URINE 25-50 /HPF; SQUAMOUS EPITHELIAL CELL,UR 0-2 /HPF; WBC,URINE 0-2 /HPF
--- NOTE | 2018-05-21 21:45 | NUR ---
DR. JOHNSON NOTIFIED THAT PATIENT'S UA IS OUT TO CULTURE, PATIENT IS MORE ALERT AND VITAL SIGNS ARE GOOD. RECEIVED ORDER FOR PATIENT TO GO HOME. PATIENT'S SON, GYPSY, STATES THAT HE IS IN AGREEMENT THAT "SHE IS BETTER" AND CAN GO HOME WITH HIM TO STAY TEMPORARILY. PATIENT IS FOLLOWING COMMANDS, SPEAKS CLEARLY AND IS ALERT AND ORIENTED. SON INQUIRED WHY SHE WOULD HAVE BEEN SO SLEEPY. EDUCATED HIM REGARDING MAKING SURE THAT SHE ONLY TAKES HER MEDICATIONS PRESCRIBED ESPECIALLY DUE TO THE FACT THAT SHE HAS PAIN MEDICATIONS, XANAX AND NEURONTIN PER THE LIST THAT HE PRESENTED. SON VERBALIZES UNDERSTANDING. EDUCATED SON THAT IF SHE SHOULD GET SLEEPY AND SHOW SIGNS/SYMPTOMS SIMILAR TO HOW SHE WAS THIS AFTERNOON THAT HE WOULD HAVE TO BRING HER BACK TO THE ER TO BE EVALUATED.
[2018-05-21 22:30] VITALS: BP 137/68
== END 2018-05-21 22:30 | disposition home or self-care (01) ==
LOC: RAD 16:28 → 4TH 17:00 → RAD 22:30
PROVIDERS: ATTEND Nurse Practitioner Family
DX: R51 Headache (principal); R47.81 Slurred speech; R54 Age-related physical debility; W19.XXXA Unspecified fall, initial encounter
CPT/HCPCS: 36415; 70450; 80053; 81000; 82962; 85027; 87088

== ENCOUNTER 2018-06-04 10:18 | Emergency (ER) | payer MEDICARE ==
[~2018-06-04] VITALS: Ht 157.5 cm; Wt 98.4 kg
[2018-06-04] MEDS ORDERED: NS IV 1000 ML 1,000 ML IV SCH (10:34)
--- OUTSIDE RECORDS SUMMARY | 2018-06-04 10:39 | XMS REPORT | Clinical Summary ---
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 If you do not see the information that you expected, contact Release of Information in the Health Information Management department at [phone] for further assistance in locating additional records.[facility] Allergies Comments Active Allergy Reactions Severity Noted Date Loopy, sleepy Codeine SEE COMMENTS Low 02/16/2016 Penicillins ANAPHYLAXIS High 02/16/2016 Sulfa (Sulfonamide HIVES Medium 02/16/2016 Antibiotics) Body stiffness Tetanus And Diphtheria FEVER, SEE Medium 02/16/2016 Toxoids, Adsorbed, Adult COMMENTS, EDEMA Medications End Date Status Medication Sig Dispensed Refills Start Date Active ALPRAZolam (XANAX) 0.5 mg Take 0.5 mg 0 tablet by mouth three times daily as needed for Anxiety. Active apixaban (ELIQUIS) 5 mg Take 5 mg by 0 tablet mouth twice daily. Active aspirin EC 81 mg tablet Take 81 mg by 0 mouth at bedtime daily. Take with food. Active budesonide respule Inhale 0.5 mg 0 (PULMICORT) 0.5 mg/2 mL solution by nebulizer solution nebulizer as directed as Needed. Active colesevelam(+) (WELCHOL) Take 1,875 mg 0 625 mg tablet by mouth twice daily with meals. Active colestipol (COLESTID) 1 Take 1 g by 0 gram tablet mouth twice daily. Active cyclobenzaprine Take 10 mg by 0 (FLEXERIL) 10 mg tablet mouth twice daily as needed. Active fexofenadine(+) (LEEANN) Take 180 mg 0 180 mg tablet by mouth daily. Active furosemide (LASIX) 20 mg Take 40 mg by 0 tablet mouth twice daily. Take 2 tabs Active gabapentin enacarbil 600 Take 900 mg 0 mg TbER by mouth three times daily. Take 1 and 1/2 tabs Active HYDROCORTISONE TP Apply 0 topically to affected area three times daily. Active levothyroxine (SYNTHROID) Take 88 mcg 0 88 mcg tablet by mouth daily 30 minutes before breakfast. Active montelukast (SINGULAIR) Take 10 mg by 0 10 mg tablet mouth at bedtime daily. Active nystatin (MYCOSTATIN) Apply 0 100,000 unit/g topical topically to cream affected area as Needed. Active pantoprazole DR Take 40 mg by 0 (PROTONIX) 40 mg tablet mouth daily. From 04/05/16 - 05/23/16 take twice daily. Resume daily dose 05/24/16 Active potassium chloride Take 10 mEq 0 (K-DUR) 10 mEq tablet by mouth daily. Take with a meal and a full glass of water. Active rOPINIRole (REQUIP) 1 mg Take 1 mg by 0 tablet mouth at bedtime daily. Active albuterol (PROAIR HFA) 90 Inhale 2 0 mcg/actuation inhaler Puffs by mouth into the lungs every 4 hours as needed for Wheezing or Shortness of Breath. Shake well before use. Active albuterol 0.5% Inhale 2.5 mg 0 (PROVENTIL; VENTOLIN) 2.5 solution by mg/0.5 mL nebulizer nebulizer as solution directed twice daily as needed for Shortness of Breath or Wheezing. Active DULOXETINE HCL (CYMBALTA Take 1 Cap by 0 PO) mouth daily. Active insulin detemir(+) Inject 25 0 (LEVEMIR) 100 unit/mL Units under solnIndications: 20 units the skin at bedtime twice daily. 25 units in the am and 20units in the pm Indications: 20 units at bedtime Active HYDROcodone/acetaminophen Take 1 Tab by 0 (+) (NORCO) 10/325 mg mouth every 6 tablet hours as needed for Pain Active fluticasone (FLONASE) 50 Apply 1 [place] 0 mcg/actuation nasal spray to each nostril as directed daily. Shake bottle gently before using. Active metoprolol XL (TOPROL XL) Take 1 Tab by 90 Tab 3 100 mg extended release mouth daily. 6 tablet Active doxycycline (VIBRAMYCIN) Take 100 mg 0 100 mg tablet by mouth twice daily. Active Prednisolone 5 mg tab Take 5 mg by 0 mouth twice daily. Active flecainide (TAMBOCOR) 100 TAKE ONE 60 tablet 11 mg tablet TABLET BY 8 MOUTH TWICE DAILY Active diltiazem CD (CARDIZEM Take 1 90 capsule 1 CD) 240 mg capsule capsule by 8 mouth daily. Active Problems Problem Noted Date Anticoagulant long-term use 12/17/2016 S/P radiofrequency ablation operation for arrhythmia 05/05/2016 Paroxysmal atrial fibrillation 03/17/2016 Overview: 01/17/16 - Echo: EF 50%. LV normal in size, endocardium was not well visualized in all segments. LA is normal in size, no clot or thrombus were seen. Mild MR, Mild TR. Pulmonary HTN with PAP 45mmHg. 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 Last Filed Vital Signs Time Taken Vital Sign Reading 12/16/2016 2:04 PM CDT Blood Pressure 120/70 12/16/2016 2:02 PM CDT Pulse 79 04/23/2016 3:13 AM [employer] Temperature 36.4 C (97.5 F) - Respiratory Rate - 12/16/2016 2:02 PM CDT Oxygen Saturation 98% - Inhaled Oxygen - Concentration 12/16/2016 2:02 PM CDT Weight 105.3 kg (232 lb 3.2 oz) 12/16/2016 2:02 PM CDT Height 157.5 cm (5' 2") 12/16/2016 2:02 PM CDT Body Mass Index 42.47 Plan of Treatment Health Maintenance Due Date Last Done Comments HEPATITIS C SCREENING 1950 PHYSICAL (COMPREHENSIVE) 1957 EXAM DILATED EYE EXAM 1968 DTAP/TDAP VACCINES (1 - 1968 Tdap) FOOT EXAM 1968 HBA1C 1968 MICROALBUMIN 1968 BREAST CANCER SCREENING 1990 COLORECTAL CANCER 2000 SCREENING SHINGLES RECOMBINANT 2000 VACCINE (1 of 2) OSTEOPOROSIS 2015 SCREENING/MONITORING PNEUMONIA (PCV13/PPSV23) 2015 VACCINES (1 of 2 - PCV13) INFLUENZA VACCINE 12/20/2017 Implants Device Identifier Shelf Expiration Date Model / Serial / Lot Implanted Type Area Manufactur er Loop Recorder Loop Recorder Results Not on filefrom Last 3 Months Insurance Payer Benefit Subscriber ID Type Phone Address Plan / Group MEDICARE MEDICARE xxxxxxxxxx Medicare PART A AND B [place] xxxxxxxxxxxx Medicare SUPPLEMENT Advance Directives Patient has advance care planning documents, and code status on file. For more information, please contact: [facility] [address] [place] [address] Date Inactivated Comments Code Status Date Activated 04/23/2016 2:54 PM Full Code 04/22/2016 8:45 AM Provider has discussed Code Status No, more discussion w/Patient or Family? needed
--- NOTE | 2018-06-04 10:44 | ED Fall/Injury ---
General Stated Complaint: FALL Source: patient, family, EMS Exam Limitations: no limitations History of Present Illness Date Seen by Provider: Jun 04, 2018 Time Seen by Provider: 10:20 Initial Comments The patient presents to ER by EMS with chief complaint that just prior to arrival she was going to the bathroom got up to get off the toilet and then either passed out and then fell or fell struck her head against the bathtub and then passed out. The patient's on Eliquis. She had a little blood in her nose and mouth per EMS. No active bleeding. She had a fall couple days ago and had little swelling above her right eye and right cheek from that fall. She's having a little tenderness in her neck on movement as well as aggravated pain in her back and her thoracic and lumbar spine. She takes gabapentin, Percocet 10 and a benzodiazepine. Her family is been working to get her out on that because usually she will take in the morning and then sleeps until noon. She's not had any of her medicines this morning. She doesn't history of hypertension. She is on a water pill and last time she saw her doctor couple weeks ago he told her she looked like she was a little dehydrated. At that time she was encouraged to take more fluids. She's had no fevers or chills or dysuria but she does feel the need to micturate and inability to completely empty her bladder. She is on an antibiotic right now for sinusitis. . Couple days ago she stubbed her toe on the left foot third digit. She's not been cleaning her caring for her. Usually she sees Dr. Mejia but it has been about a month since she seeing him. She does not follow with wound care. Her blood sugar is been elevated in the 200s lately. She has not checked it at home yet. She has not taken any of her medicines this morning either. Allergies and Home Medications Allergies Coded Allergies: Penicillins (Verified Allergy, Severe, SWELLING, HIVES, THROAT SWELLED, 01/21/16) PATIENT HAS RECEIVED CEFEPIME WITHOUT ISSUE Sulfa (Sulfonamide Antibiotics) (Verified Allergy, Severe, TONGUE SWELLED , 01/21/16) Tetanus & Diphtheria Tox,Adult (Verified Allergy, Severe, SWELLING OF THROAT, 01/21/16) codeine (Verified Allergy, Unknown, HAS RECEIVED LORTAB IN THE PAST, ) egg (Unverified Allergy, Unknown, 06/29/16) FROM UNCODED ALLERGIES Home Medications Albuterol Sulfate 8.5 Gm Hfa.aer.ad, 2 PUFF INH Q4H PRN for SHORTNESS OF BREATH, (Reported) Albuterol Sulfate 2.5 Mg/3 Ml Vial.neb, 2.5 MG IH Q4H PRN for SHORTNESS OF BREATH, (Reported) Alprazolam 0.5 Mg Tablet, 0.5 MG PO TID PRN for ANXIETY, (Reported) Apixaban 5 Mg Tablet, 5 MG PO BID, (Reported) Aspirin 81 Mg Tablet.dr, 81 MG PO HS, (Reported) Azithromycin 250 Mg Tablet, 250 MG PO DAILY Prescribed by: DAISY MOTTA on 02/06/17 09 Budesonide/Formoterol Fumarate 10.2 Gm Hfa.aer.ad, 2 PUFF IH BID, (Reported) Calcium Carbonate 1,177 Mg Tab.chew, 2 TAB PO TID PRN for INDIGESTION, (Reported ) Colestipol HCl 1 Gm Tablet, 1 GM PO BID, (Reported) Cyclobenzaprine HCl 10 Mg Tablet, 10 MG PO Q8H PRN for MUSCLE SPASMS, (Reported) Digoxin 125 Mcg Tablet, 0.125 MG PO HS Prescribed by: DAISY MOTTA on 02/06/17919 Diltiazem HCl 240 Mg Cap.er.24h, 240 MG PO DAILY, (Reported) Diphenhydramine HCl 25 Mg Capsule, 50 MG PO QID PRN for ITCHING, (Reported) Duloxetine HCl 60 Mg Capsule.dr, 60 MG PO DAILY, (Reported) TAKES ALONG WITH 30MG CAPSULES FOR A TOTAL DAILY DOSE OF 90MG Duloxetine HCl 30 Mg Capsule.dr, 30 MG PO DAILY, (Reported) TAKES ALONG WITH 60MG CAPSULE FOR A TOTAL DAILY DOSE OF 90MG Ergocalciferol (Vitamin D2) 50,000 Unit Capsule, 50,000 UNIT PO Mo, (Reported) Fexofenadine HCl 180 Mg Tablet, 180 MG PO BID, (Reported) Flecainide Acetate 100 Mg Tablet, 100 MG PO BID, (Reported) Fluticasone Propionate 16 Gm Ganado.susp, 1 SPRAY NS HS, (Reported) Furosemide 40 Mg Tablet, 40 MG PO 1000,1500, (Reported) Gabapentin 600 Mg Tablet, 900 MG PO TID, (Reported) TAKES 1 & 1/2 (600MG) TABLETS Hydrocodone/Acetaminophen 1 Each Tablet, 1-2 TAB PO Q6H PRN for PAIN-MODERATE, ( Reported) ONLY TAKES WHEN OUT OF PERCOCET Insulin Detemir 100 Unit/1 Ml Insuln.pen, 50 UNITS SC BID, (Reported) Lactobacillus Acidophilus 1 Each Tablet, 1 EACH PO TID Prescribed by: DAISY MOTTA on 02/06/17 0920 Levothyroxine Sodium 88 Mcg Tablet, 88 MCG PO DAILY, (Reported) LAST FILLED #30 08-19-16 Metoprolol Succinate 100 Mg Tab.er.24h, 100 MG PO BID, (Reported) Montelukast Sodium 10 Mg Tablet, 10 MG PO HS, (Reported) Naphazoline HCl/Pheniramine 15 Ml Drops, 1-2 DROP OU QID PRN for ALLERGIES, ( Reported) Nystatin 1 Each Powder.ea., TOP QID PRN for RASH, (Reported) Oxycodone HCl/Acetaminophen 1 Each Tablet, 1-2 TAB PO Q6H PRN for PAIN-MODERATE, (Reported) Pantoprazole Sodium 40 Mg Tablet.dr, 40 MG PO BID, (Reported) Promethazine HCl 25 Mg Tablet, 25 MG PO Q8H PRN for NAUSEA/VOMITING-2ND LINE, ( Reported) Ropinirole HCl 1 Mg Tablet, 0.5 MG PO HS, (Reported) TAKES 1/2 (1MG) TABLET Patient Home Medication List Home Medication List Reviewed: Yes Review of Systems Review of Systems Constitutional: No chills, No dizziness, No fever, No malaise, No weakness Eyes: Denies Blindness, Denies Blurred Vision, Denies Pain Ears, Nose, Mouth, Throat: denies ear pain, denies ear discharge Respiratory: No cough, No short of breath Cardiovascular: No chest pain, No palpitations Gastrointestinal: No abdominal pain, No constipation, No diarrhea, No nausea, No vomiting Genitourinary: No discharge, No dysuria; hesitancy Musculoskeletal: No back pain, No joint pain Skin: No pruritus, No rash Past Zlojuug-Qgrlrn-Jhjbaa Hx Patient Social History Alcohol Use: Denies Use Recreational Drug Use: No Smoking Status: Never a Smoker 2nd Hand Smoke Exposure: No Recent Hopitalizations: Yes (LAST WEEK) Immunizations Up To Date Tetanus Booster (TDap): Unknown Date of Pneumonia Vaccine: Jan 31, 2012 Seasonal Allergies Seasonal Allergies: Yes Past Medical History Surgeries: Yes (KNEE SCOPES X3 - D&C'S; CARDIAC ABLATION FOR A. 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 Sexually Transmitted Disease: No HIV/AIDS: No Genitourinary: Yes UTI-Chronic Gastrointestinal: Yes Colitis, Gastroesophageal Reflux, Diverticulosis, Irritable Bowel Musculoskeletal: Yes (SCIATICA, CHRONIC NECK AND SHOULDER PAIN ) Arthritis, Fibromyalgia, Chronic Back Pain Endocrine: Yes Diabetes, Insulin dep, Hypothyroidsim HEENT: No Tonsilitis Loss of Vision: Denies Hearing Impairment: Denies Cancer: No Psychosocial: Yes Anxiety, Depression Integumentary: No Blood Disorders: Yes (CHRONIC ANEMIA) Adverse Reaction/Blood Tranf: No Family Medical History Cardiovascular disease 19 FATHER 19 MOTHER Diabetes mellitus 19 MOTHER Irritable bowel syndrome G8 BROTHER Myocardial infarction 19 FATHER 19 MOTHER TIAs 19 MOTHER Heart Disease, Diabetes, GI Disease, Hypertension, Stroke Physical Exam Vital Signs Vital Signs - First Documented 06/04/18 10:19 Temp 97.4 Pulse 80 Resp 20 B/P (MAP) 139/67 (91) Pulse Ox 96 O2 Delivery Nasal Cannula O2 Flow Rate 3.00 Capillary Refill : Height, Weight, BMI Height: 5'5.00" Weight: 220lbs. 2.0oz. 99.275108qg; 44.3 BMI Method:Stated General Appearance: WD/WN, no apparent distress HEENT: PERRL/EOMI, normal ENT inspection, TMs normal, other (She has some mild swelling over her right eye and right cheek with faint ecchymoses. No lacerations, abrasions or hematoma on the head. Negative for hemotympanum, saunders sign or raccoon eyes. She does have some blood in her nares bilateral and some in her mouth. Poor dentition but she states none of the teeth are loose or chipped but her front left incisor on the upper maxilla is tender to palpation.) Neck: normal inspection, tender lateral Cardiovascular: normal peripheral pulses, regular rate, rhythm (right more than left), other (1+ pitting pedal edema) Respiratory: chest non-tender, lungs clear, normal breath sounds, no respiratory distress, no accessory muscle use Peripheral Pulses: 2+ Dorsalis Pedis (R), 2+ Left Dors-Pedis (L), 2+ Radial Pulses (R), 2+ Radial Pulses (L) Gastrointestinal: normal bowel sounds, non tender, soft Extremities: normal capillary refill, pedal edema (1+), other (right hand and right wrist are tender to palpation without any ecchymoses or deformity. Right knee is tender on the anterior medial tibial plateau without any deformity or ecchymoses. 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, no motor/sensory deficits, alert, normal mood/affect, oriented x 3 Skin: other (small abrasion with some blood on it dried on the left third toe without an erythematous, deformed digit.) [place] Coma Score Best Eye Response: (4) Open Spontaneously Best Verbal Response: (5) Oriented Best Motor Response: (6) Obeys Commands Pelion Total: 15 Progress/Results/Core Measures Results/Orders Lab Results Laboratory Tests Test 06/04/18 10:25 06/04/18 10:27 06/04/18 11:01 06/04/18 11:51 Range/Units Glucometer 223 H 196 H 70-110 MG/DL White Blood Count 7.5 4.3-11.0 10^3/uL Red Blood Count 4.13 L 4.35-5.85 10^6/uL Hemoglobin 11.8 11.5-16.0 G/DL Hematocrit 37 35-52 % Mean Corpuscular Volume 89 80-99 FL Mean Corpuscular Hemoglobin 29 25-34 PG Mean Corpuscular Hemoglobin Concent 32 32-36 G/DL Red Cell Distribution Width 15.9 H 10.0-14.5 % Platelet Count 241 130-400 10^3/uL Mean Platelet Volume 10.2 7.4-10.4 FL Neutrophils (%) (Auto) 67 42-75 % Lymphocytes (%) (Auto) 22 12-44 % Monocytes (%) (Auto) 8 0-12 % Eosinophils (%) (Auto) 2 0-10 % Basophils (%) (Auto) 1 0-10 % Neutrophils # (Auto) 5.1 1.8-7.8 X 10^3 Lymphocytes # (Auto) 1.6 1.0-4.0 X 10^3 Monocytes # (Auto) 0.6 0.0-1.0 X 10^3 Eosinophils # (Auto) 0.2 0.0-0.3 10^3/uL Basophils # (Auto) 0.0 0.0-0.1 10^3/uL Sodium Level 138 135-145 MMOL/L Potassium Level 4.0 3.6-5.0 MMOL/L Chloride Level 98 98-107 MMOL/L Carbon Dioxide Level 26 21-32 MMOL/L Anion Gap 14 5-14 MMOL/L Blood Urea Nitrogen 21 H 7-18 MG/DL Creatinine 1.15 0.60-1.30 MG/DL Estimat Glomerular Filtration Rate 47 BUN/Creatinine Ratio 18 Glucose Level 226 H 70-105 MG/DL Calcium Level 9.1 8.5-10.1 MG/DL Corrected Calcium 9.3 8.5-10.1 MG/DL Magnesium Level 2.0 1.8-2.4 MG/DL Total Bilirubin 0.2 0.1-1.0 MG/DL Aspartate Amino Transf (AST/SGOT) 19 5-34 U/L Alanine Aminotransferase (ALT/SGPT) 13 0-55 U/L Alkaline Phosphatase 112 40-136 U/L Total Protein 6.9 6.4-8.2 GM/DL Albumin 3.8 3.2-4.5 GM/DL Urine Color YELLOW Urine Clarity CLEAR Urine pH 5 5-9 Urine Specific [place] 1.015 L 1.016-1.022 Urine Protein 1+ H NEGATIVE Urine Glucose (UA) NEGATIVE NEGATIVE Urine Ketones NEGATIVE NEGATIVE Urine Nitrite NEGATIVE NEGATIVE Urine Bilirubin NEGATIVE NEGATIVE Urine Urobilinogen NORMAL NORMAL MG/DL Urine Leukocyte Esterase NEGATIVE NEGATIVE Urine RBC (Auto) 5+ H NEGATIVE Urine RBC NONE /HPF Urine WBC NONE /HPF Urine Crystals NONE /LPF Urine Amorphous Sediment RARE PHILIP URATES H /LPF Urine Bacteria NEGATIVE /HPF Urine Casts NONE /LPF Urine Mucus NEGATIVE /LPF Urine Culture Indicated NO My Orders Orders - MIYA CORREA Fentanyl Injection (Sublimaze Injection (06/04/18 10:45) Ct Head/Face/Cervical Wo (06/04/18 10:34) Ct Thoracic/Lumbar Spine Wo (06/04/18 10:34) Cbc With Automated Diff (06/04/18 10:34) Comprehensive Metabolic Panel (06/04/18 10:34) Magnesium (06/04/18 10:34) Ua Culture If Indicated (06/04/18 10:34) Chest 1 View, Ap/Pa Only (06/04/18 10:34) Hand, Right, 3 Views (06/04/18 10:34) Knee, Right, 3 Views (06/04/18 10:34) Saline Lock/Iv-Start (06/04/18 10:34) Ns Iv 1000 Ml (Sodium Chloride 0.9%) (06/04/18 10:34) Orthostatic Vital Signs (Adult (06/04/18 10:34) Catheter(Urinary) Insert & Ass 03,15 (06/04/18 10:55) Wrist, Right, 3 Views Or More (06/04/18 10:55) Accucheck Stat ONCE (06/04/18 11:50) Medications Given in ED Current Medications Medications Dose Ordered Sig/Jorge Route Start Time Stop Time Status Last Admin Dose Admin Fentanyl Citrate 50 mcg ONCE ONCE IVP 06/04/18 10:45 06/04/18 10:46 DC 06/04/18 10:55 25 MCG Vital Signs/I&O 06/04/18 10:19 Temp 97.4 Pulse 80 Resp 20 B/P (MAP) 139/67 (91) Pulse Ox 96 O2 Delivery Nasal Cannula O2 Flow Rate 3.00 Progress Progress Note : Time: 10:47 Progress Note Her entire spine midline is tender to palpation so we'll obtain CT head, C-spine , T-spine, lumbar spine as well as maxillofacial since she has blood coming out of her nose and tenderness over her left sinus. Hard to distinguish whether this is her sinusitis versus possible facial fracture. If we can get her to stand we'll set her up to do some orthostatics and see if she is not gotten dehydrated which could contribute to a vasovagal syncope. Finally we'll check some blood and urine and she still says she has difficulty emptying her bladder we can do a bladder scan. Diagnostic Imaging Diagonstic Imaging: CT (without contrast) Plain Films/CT/US/NM/MRI: c-spine, head (maxillofacial) Comments [facility] [place], [place] NAME: FAUSTINO [facility]O [facility] REC#: [id number] PT STATUS: REG ER : 1950 PHYSICIAN: MIYA CORREA MD ADMIT DATE: 06/04/18/ER Draft Date of Exam:06/04/18 CT HEAD/FACE/CERVICAL WO CLINICAL INDICATION: Patient fell this morning in bathroom hitting face and head. EXAM: Axial Head CT without IV contrast. Axial Maxillofacial CT scan without IV contrast with sagittal and coronal reformations. Axial CT scan of the cervical spine with sagittal and coronal reformations. COMPARISON: Head CT without contrast dated 05/21/2018. CT scan of the sinuses dated 05/17/2018. X-ray of the cervical spine dated 09/19/2016. FINDINGS: Head CT: There is no evidence of acute cerebral infarct, intracranial hemorrhage, or gross mass effect. The brain parenchymal volume appears appropriate for patient's age. There is no significant change to the patchy areas of low-attenuation white matter changes within both cerebral hemispheres, likely representing chronic small vessel ischemic disease. There is normal edge-white matter distinction. There is no significant midline shift or herniation. There is no evidence of hydrocephalus. The basal cisterns are unremarkable. Maxillofacial and skull CT: There is no skull or maxillofacial fracture. The skull, extracranial soft tissue, and orbits are unremarkable. There is mild ethmoid sinus mucosal thickening and mild mucosal thickening in the nasal cavity. There is near complete resolution of sinus disease involving the frontal sinus, right maxillary sinus, sphenoid sinus. Stable sclerosis of the right mastoid air cells. Otherwise, the temporal bones show no significant abnormality. Cervical spine: There is no acute cervical spine fracture or dislocation. There is markedly hypertrophic anterior spurs flowing osteophytes seen from the C2-T1 levels which can be seen with DISH. There is at least moderate bony neural foramen narrowing involving the left C5-C6 level due to facet arthropathy and uncinate spurs. There is no significant neck soft tissue abnormality. Visualized upper lung oliveira are clear. IMPRESSION: 1: There is no evidence of acute intracranial process. There is no intracranial hemorrhage. 2: There is no skull or maxillofacial fracture. 3: There is no acute cervical spine fracture or dislocation. 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 Dictated on workstation # [id number] Dict: 06/04/18 1122 Trans: 06/04/18 1150 [id number] Interpreted by: ULISES ARELLANO MD Electronically signed by: Reviewed: Reviewed by Me Diagonstic Imaging: CT Plain Films/CT/US/NM/MRI: other (without contrast thoracic and lumbar spine) Comments [facility] [place] [place] NAME: FAUSTINO [facility] REC#: [id number] PT STATUS: REG ER : 1950 PHYSICIAN: MIYA CORREA MD ADMIT DATE: 06/04/18/ER Draft Date of Exam:06/04/18 CT THORACIC/LUMBAR SPINE WO INDICATION: Fall with back pain. TECHNIQUE: Axial imaging through the thoracic and lumbar spine was performed without contrast. Sagittal and coronal reformations were also performed. CT thoracic: Curvature and alignment of thoracic spine is normal. Vertebral body heights are maintained. There is generalized degenerative disc disease with variable disc space narrowing and marginal spurring. Paraspinous tissues are unremarkable. No fractures are seen. Bony canal appears to be patent. IMPRESSION: Thoracic spondylosis. No acute bony abnormality is detected. CT lumbar spine: There is normal curvature and alignment. Vertebral body heights are maintained. No fracture or subluxation is seen. There is generalized lumbar spondylosis with variable disc space narrowing and marginal spurring. There does appear to be some probable spinal stenosis at the L4-L5 level due to ligamentous thickening and facet changes as well as broad-based disc/osteophyte complex. Paraspinous tissues are unremarkable. IMPRESSION: Lumbar spondylosis. No acute bony abnormality is detected. Dictated on workstation # [id number] Dict: 06/04/18 1127 Trans: 06/04/18 1137 [id number] Interpreted by: MARISOL ASHRAF MD Electronically signed by: Reviewed: Reviewed by Me Diagonstic Imaging: Xray Plain Films/CT/US/NM/MRI: chest Comments [facility] [place] [place] NAME: FAUSTINO [facility] REC#: [id number] PT STATUS: REG ER : 1950 PHYSICIAN: MIYA CORREA MD ADMIT DATE: 06/04/18/ER Draft Date of Exam:06/04/18 CHEST 1 VIEW, AP/PA ONLY INDICATION: Passed out and fell. TIME OF EXAM: 11:59 a.m. COMPARISON: Comparison is made with prior chest from 09/20/2017. FINDINGS: The heart is enlarged but stable. Cardiac monitoring device overlies the left chest. There is central congestion noted. No overt failure is seen. No effusion or pneumothorax is detected. IMPRESSION: Cardiomegaly and central congestion. Dictated on workstation # [id number] Dict: 06/04/18 1144 Trans: 06/04/18 1147 [id number] Interpreted by: MARISOL ASHRAF MD Electronically signed by: Reviewed: Reviewed by Me Diagonstic Imaging: Xray Plain Films/CT/US/NM/MRI: hand (right) Comments [facility] [place] [place] NAME: FAUSTINO [facility] REC#: [id number] PT STATUS: REG ER : 1950 PHYSICIAN: MIYA CORREA MD ADMIT DATE: 06/04/18/ER Draft Date of Exam:06/04/18 WRIST, RIGHT, 3 VIEWS OR MORE INDICATION: Syncope, fall, with right wrist pain. AP, oblique, and lateral views of the right wrist are obtained. FINDINGS: No fracture or acute bony abnormality is seen. There is degenerative change of the first carpometacarpal joint as well as of the radiocarpal joint. There is no acute fracture seen. There is some irregularity of the radial styloid which appears to be chronic. IMPRESSION: Degenerative findings. No acute bony abnormality. Dictated on workstation # [id number] Dict: 06/04/18 1145 Trans: 06/04/18 1150 MK [id number] Interpreted by: VIRA ONEIL MD Electronically signed by: [facility] [place], [place] NAME: FAUSTINO [facility] REC#: [id number] PT STATUS: REG ER : 1950 PHYSICIAN: MIYA CORREA MD ADMIT DATE: 06/04/18/ER Draft Date of Exam:06/04/18 HAND, RIGHT, 3 VIEWS Indication: Fall, pain, lethargy. Findings: The bones are demineralized which increases the risk of fracture and can make nondisplaced injuries radiographically imperceptible. Osteoarthritic changes to the carpometacarpals, metacarpophalangeal and interphalangeal joints are present. No fracture or dislocation however is identified. Impression: Bony demineralization and osteoarthritis. Dictated on workstation # [id number] Dict: 06/04/18 1144 Trans: 06/04/18 1149 [id number] [id number] Interpreted by: MINOR SHERWOOD Electronically signed by: Reviewed: Reviewed by Me Diagonstic Imaging: Xray Plain Films/CT/US/NM/MRI: knee (right) Comments [facility] [place] [place] NAME: FAUSTINO [facility] REC#: [id number] PT STATUS: REG ER : 1950 PHYSICIAN: MIYA CORREA MD ADMIT DATE: 06/04/18/ER Draft Date of Exam:06/04/18 KNEE, RIGHT, 3 VIEWS INDICATION: Fall, right knee pain. TIME OF EXAMINATION: 11:55 a.m. FINDINGS: Three views of the right knee were obtained. There is significant medial and patellofemoral compartmental degenerative change with joint space narrowing and marginal osteophyte formation. Lateral compartment is maintained. Articular surfaces are smooth. No fracture, dislocation or effusion is seen. IMPRESSION: Severe degenerative changes. No acute bony abnormality is detected. Dictated on workstation # [id number] Dict: 06/04/18 1145 Trans: 06/04/18 1148 [facility] [id number] Interpreted by: MARISOL ASHRAF MD Electronically signed by: Reviewed: Reviewed by Me Departure Impression Primary Impression: Fall Qualified Codes: W19.XXXA - Unspecified fall, initial encounter Additional Impressions: Vasovagal syncope Concussion Qualified Codes: S06.0X1A - Concussion with loss of consciousness of 30 minutes or less, initial encounter Anterior epistaxis Right wrist pain Right anterior knee pain Open wound of left great toe Qualified Codes: S91.102A - Unspecified open wound of left great toe without damage to nail, initial encounter Disposition: 01 HOME, SELF-CARE Condition: Stable Departure-Patient Inst. Decision time for Depature: 12:42 Referrals: DAISY MOTTA MD (PCP/Family) Primary Care Physician Patient Instructions: Syncope (Fainting) (DC) Add. Discharge Instructions: Follow-up with Dr. Mejia or your primary care doctor for your left toe wound within the next week. Cut your dose of Lasix in half and take one tablet twice a day now. Follow-up with Dr. Motta and discuss your medicines. Drink plenty of fluids. Copy Copies To 1: DAISY MOTTA MD, TITUS J Jun 04, 2018 10:44
[2018-06-04 10:45] LABS: BASOPHILS % (AUTO) 1 % (0-10); EOSINOPHILS # (AUTO) 0.2 10^3/uL (0.0-0.3); EOSINOPHILS % (AUTO) 2 % (0-10); HEMATOCRIT 37 % (35-52); HEMOGLOBIN 11.8 G/DL (11.5-16.0); LYMPHOCYTES # (AUTO) 1.6 X 10^3 (1.0-4.0); LYMPHOCYTES % (AUTO) 22 % (12-44); MEAN CORPUSCULAR HEMOGLOBIN 29 PG (25-34); MEAN CORPUSCULAR HGB CONC 32 G/DL (32-36); MEAN CORPUSCULAR VOLUME 89 FL (80-99); MEAN PLATELET VOLUME 10.2 FL (7.4-10.4); MONOCYTES # (AUTO) 0.6 X 10^3 (0.0-1.0); MONOCYTES % (AUTO) 8 % (0-12); NEUTROPHILS # (AUTO) 5.1 X 10^3 (1.8-7.8); NEUTROPHILS % (AUTO) 67 % (42-75); PLATELET COUNT 241 10^3/uL (130-400); RED BLOOD COUNT 4.13 10^6/uL (4.35-5.85); RED CELL DISTRIBUTION WIDTH 15.9 % (10.0-14.5); WHITE BLOOD COUNT 7.5 10^3/uL (4.3-11.0)
[2018-06-04] MEDS ORDERED: fentaNYL INJECTION 100 MCG/2 ML AMP IVP ONE (10:45)
[2018-06-04 10:57] LABS: ALBUMIN 3.8 GM/DL (3.2-4.5); BILIRUBIN,TOTAL 0.2 MG/DL (0.1-1.0); CALCIUM 9.1 MG/DL (8.5-10.1); CREATININE SERUM 1.15 MG/DL (0.60-1.30); TOTAL PROTEIN 6.9 GM/DL (6.4-8.2)
[2018-06-04 11:07] LABS: BILIRUBIN,URINE NEGATIVE (NEGATIVE); CLARITY,URINE CLEAR; COLOR,URINE YELLOW; GLUCOSE, URINE (UA) NEGATIVE (NEGATIVE); KETONES,URINE NEGATIVE (NEGATIVE); LEUKOCYTE ESTERASE ,URINE NEGATIVE (NEGATIVE); NITRITE,URINE NEGATIVE (NEGATIVE); PH,URINE 5 (5-9); PROTEIN,URINE 1+ (NEGATIVE); UROBILINOGEN,URINE NORMAL (NORMAL)
--- OUTSIDE RECORDS SUMMARY | 2018-06-04 11:07 | XMS REPORT | CCD ---
Author Author [facility]ie [facility]ta Organization [facility] Address [address] [place] [address] Phone Care Team Providers Care Stonemason Name Role Phone Tessie Motta PP Unavailable CCM Unavailable Summary Purpose Interface Exchange Insurance Providers Payer name Policy type / Coverage type Covered democrat ID Effective Begin Date Effective End Date WPS Medicare Part B Medicare Part B [id number] 2015 Unknown [facility] Medicare Part B [id number] Unknown Family history Son Diagnosis Age At Onset No Family Disease Entered N/A Brother Diagnosis Age At Onset No Family Disease Entered N/A Mother Diagnosis Age At Onset Diabetes mellitus Type 2 Unknown Grandfather Diagnosis Age At Onset No Family Disease Entered N/A Grandmother Diagnosis Age At Onset No Family Disease Entered N/A Son Diagnosis Age At Onset No Family Disease Entered N/A Grandmother Diagnosis Age At Onset No Family Disease Entered N/A Grandfather Diagnosis Age At Onset Heart disease Unknown Father Diagnosis Age At Onset Heart disease Unknown Social History Social History Element Codes Description Effective Dates Marital status Unknown 05-16-2018 05/21/2018 Employment Unknown Retired 11/14/2013 Number of children Unknown 2 08/21/2011 Living arrangements Unknown House 08/21/2011 Education level Unknown College Graduate 08/21/[address]: 797416728 Never smoker 02/11/[address]: 920340480 Never drinks alcohol 02/11/2011 Has the patient ever used illegal drugs? Unknown Has never used illegal drugs 02/11/2011 Allergies, Adverse Reactions, Alerts Substance Reaction Codes Entered Date Inactivated Date Status CODEINE RxNorm: 2670 02/11/2011 No Inactive Date Active * NO KNOWN FOOD ALLERGIES Unknown 02/01/2012 No Inactive Date Active cefdinir RxNorm: 16642 08/07/2012 No Inactive Date Active PENICILLINS Unknown 02/11/2011 No Inactive Date Active SULFA (SULFONAMIDES) Unknown 02/11/2011 No Inactive Date Active Tetanus Unknown 02/11/2011 No Inactive Date Active Past Medical History Illness Codes Condition Status Onset Date Resolved Date Acute recurrent pansinusitis ICD-9: 461.8 ICD-10: J01.41 Active 05/21/2018 Unknown Headache ICD-9: 784.0 ICD-10: R51 Active 12/16/2015 Unknown Other hypotension ICD- 9: 458.8 ICD-10: I95.89 Active 05/21/2018 Unknown Repeated falls ICD-9: 781.99 ICD-10: R29.6 Active 05/21/2018 Unknown Slurred speech ICD-9: 784.59 ICD-10: R47.81 Active 05/21/2018 Unknown Type 2 diabetes mellitus with hyperglycemia ICD-9: 250.00 ICD-10: E11.65 Active 05/23/2016 Unknown Essential (primary) hypertension ICD-9: 401.1 ICD-10: I10 Active 06/13/2017 Unknown Generalized anxiety disorder ICD-9: 300.00 ICD-10: F41.1 Active 05/16/2018 Unknown Chronic maxillary sinusitis ICD-9: 473.0 ICD-10: J32.0 Active 01/30/2017 Unknown Cough ICD-9: 786.2 ICD-10: R05 Active 11/09/2015 Unknown Generalized anxiety disorder ICD-9: 300.02 ICD-10: F41.1 Active 05/23/2016 Unknown Weakness ICD-9: 780.79 ICD-10: R53.1 Active 04/10/2018 Unknown Low back pain ICD-9: 724.2 ICD-10: M54.5 Active 09/13/2016 Unknown Anemia, unspecified ICD-9: 285.9 ICD-10: D64.9 Active 02/20/2018 Unknown Dysuria ICD-9: 788.1 ICD-10: R30.0 Active 04/10/2016 Unknown Vitamin D deficiency, unspecified ICD-9: 268.9 ICD-10: E55.9 Active 02/20/2018 Unknown Type 2 diabetes mellitus with hyperglycemia ICD-9: 250.02 ICD-10: E11.65 Active 03/02/2015 Unknown Unspecified injury of head, initial encounter ICD-9: 959.01 ICD-10: S09.90XA Active 09/27/2017 Unknown Encounter for general adult medical examination with abnormal findings ICD-9: V70.0 ICD-10: Z00.01 Active 09/28/2015 Unknown Encounter for screening mammogram for malignant neoplasm of breast ICD-9: V76.12 ICD-10: Z12.31 Active 10/27/2017 Unknown Chronic pain syndrome ICD-9: 338.4 ICD-10: G89.4 Active 05/23/2016 Unknown 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 loss (chronic) ICD-9: 280.0 ICD-10: D50.0 Active 08/09/2016 Unknown Hordeolum externum left upper eyelid ICD-9: 373.11 ICD-10: H00.014 Active 07/27/2017 Unknown Chronic obstructive pulmonary disease, unspecified ICD-9: 496 ICD-10: J44.9 Active 02/01/2016 Unknown Unsteadiness on feet ICD-9: 781.2 ICD-10: R26.81 Active 11/11/2016 Unknown Periapical abscess without sinus ICD-9: 522.5 ICD-10: K04.7 Active 04/21/2017 Unknown Cellulitis of abdominal wall ICD-9: 682.2 ICD-10: L03.311 Active 04/18/2017 Unknown Essential (primary) hypertension ICD-9: 401.9 ICD-10: I10 Active 05/23/2016 Unknown Generalized abdominal pain ICD-9: 789.07 ICD-10: R10.84 Active 02/17/2017 Unknown Hypokalemia ICD-9: 276.8 ICD-10: E87.6 Active 02/17/2017 Unknown Paroxysmal atrial fibrillation ICD-9: 427.31 ICD-10: I48.0 Active 02/01/2016 Unknown Hypomagnesemia ICD-9: 275.2 ICD-10: E83.42 Active 02/17/2017 Unknown Drug induced constipation ICD-9: 564.09 ICD-10: K59.03 Active 02/21/2017 Unknown Diarrhea, unspecified ICD-9: 787.91 ICD-10: R19.7 Active 02/13/2017 Unknown Pain in right shoulder ICD-9: 719.41 ICD-10: M25.511 Active 09/13/2016 Unknown Hypothyroidism, unspecified ICD-9: 244.9 ICD-10: E03.9 Active 03/20/2016 Unknown Obstructive sleep apnea (adult) (pediatric) ICD-9: 327.23 ICD-10: G47.33 Active 02/25/2016 Unknown Restless legs syndrome ICD-9: 333.94 ICD-10: G25.81 Active 11/26/2015 Unknown Diplopia ICD-9: 368.2 ICD-10: H53.2 Active 12/13/2016 Unknown Other acute sinusitis ICD-9: 461.8 ICD-10: J01.80 Active 12/13/2016 Unknown Fasciculation ICD-9: 781.0 ICD-10: R25.3 Active 11/11/2016 Unknown Other obesity due to excess calories ICD-9: 278.00 ICD-10: E66.09 Active 09/28/2015 Unknown Unilateral primary osteoarthritis, right knee ICD-9: 715.96 ICD-10: M17.11 Active 11/11/2016 Unknown Zoster without complications ICD-9: 053.9 ICD-10: B02.9 Active 10/13/2016 Unknown Vomiting, unspecified ICD-9: 787.03 ICD-10: R11.10 Active 10/28/2016 Unknown Pain in right knee ICD -9: 719.46 ICD-10: M25.561 Active 09/23/2016 Unknown Acute recurrent maxillary sinusitis ICD-9: 461.0 ICD-10: J01.01 Active 09/23/2016 Unknown Allergic rhinitis due to pollen ICD-9: 477.0 ICD-10: J30.1 Active 09/23/2016 Unknown Candidiasis of skin and nail ICD-9: 112.3 ICD-10: B37.2 Active 07/26/2016 Unknown Cervicalgia ICD-9: 723.1 ICD-10: M54.2 Active 09/13/2016 Unknown Pneumonia, unspecified organism ICD-9: 486 ICD-10: J18.9 Active 07/26/2016 Unknown Menopausal and female climacteric states ICD-9: 627.2 ICD-10: N95.1 Active 04/18/2016 Unknown Major depressive disorder, single episode, mild ICD-9: 311 ICD-10: F32.0 Active 03/20/2016 Unknown Cellulitis of right lower limb ICD-9: 682.6 ICD-10: L03.115 Active 03/10/2016 Unknown Localized edema ICD-9 : 782.3 ICD-10: R60.0 Active 03/10/2016 Unknown Other elevated white blood cell count ICD-9: 288.69 ICD-10: D72.828 Active 03/10/2016 Unknown Encounter for immunization ICD-9: V03.82 ICD-10: Z23 Active 02/25/2016 Unknown Other conjunctivitis ICD-9: 372.33 ICD-10: H10.89 Active 02/25/2016 Unknown Unspecified asthma, uncomplicated ICD-9: 493.90 ICD-10: J45.909 Active 02/25/2016 Unknown VAC STREP PNEUMONIAE-FLU ICD-9: V06.6 ICD-10: Z23 Active 06/07/2012 Unknown Drug-induced adrenocortical insufficiency ICD-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 ICD-10: E27.3 Active 12/16/2015 Unknown Pleurodynia ICD-9: 786.50 ICD-10: R07.81 Active 12/07/2015 Unknown Syncope and collapse ICD-9: 780.2 ICD-10: R55 Active 12/07/2015 Unknown Addisonian crisis ICD- 9: 255.41 ICD-10: E27.2 Active 11/11/2015 Unknown Acute bronchitis due to other specified organisms ICD-9: 466.0 ICD-10: J20.8 Active 11/09/2015 Unknown Other acute sinusitis ICD-9: 461.9 ICD-10: J01.80 Active 11/09/2015 Unknown Other malaise ICD-9: 780.79 ICD-10: R53.81 Active 11/09/2015 Unknown Cellulitis of right toe ICD-9: 681.10 ICD-10: L03.031 Active 10/26/2015 Unknown Pain in left knee ICD- 9: 719.46 ICD-10: M25.562 Active 10/26/2015 Unknown Body mass index (BMI) 40.0-44.9, adult ICD-9: V85.41 ICD-10: Z68.41 Active 08/09/2015 Unknown Edema, unspecified ICD -9: 782.3 ICD-10: R60.9 Active 04/13/2015 Unknown Rash ICD-9: 782.1 Active 01/14/2015 Unknown CVA (cerebral vascular accident) ICD-9: 434.91 Active 2014 Unknown Allergic rhinitis ICD- 9: 477.9 Active 09/08/2014 Unknown Sciatica ICD-9: 724.3 Active 06/12/2014 Unknown Urinary urgency ICD-9 : 788.63 Active 04/21/2014 Unknown DIABETES TYPE II ICD-9 : 250.00 Active 04/15/2014 Unknown CHRONIC SINUSITIS ICD- 9: 473.9 Active 03/25/2014 Unknown Right knee pain ICD-9 : 719.46 Active 03/25/2014 Unknown Blister of leg ICD-9: 916.2 Active 03/03/2014 Unknown ESSENTIAL HYPERTENSION ICD-9: 401.9 Active 02/13/2014 Unknown Diabetes mellitus type 2, uncontrolled ICD-9: 250.02 Active 12/2013 Unknown OPEN WND KNEE/LEG/ANKLE ICD-9: 891.0 Active 12/26/2013 Unknown Cellulitis of right leg ICD-9: 682.6 Active 12/12/2013 Unknown DYSURIA ICD-9: 788.1 Active 11/18/2013 Unknown Asthma exacerbation ICD-9: 493.92 Active 11/14/2013 Unknown COUGH ICD-9: 786.2 Active 11/14/2013 Unknown EDEMA ICD-9: 782.3 Active 11/14/2013 Unknown Wrist pain, left ICD-9 : 719.43 Active 09/23/2013 Unknown Encounter for long-term (current) use of other medications ICD-9: V58.69 Active 08/01/2013 Unknown Blister of right foot ICD-9: 917.2 Active 07/19/2013 Unknown Muscle spasms of neck ICD-9: 728.85 Active 06/27/2013 Unknown OBESITY ICD-9: 278.00 Active 06/10/2013 Unknown ACUTE BRONCHITIS ICD-9 : 466.0 Active 05/07/2013 Unknown Back pain ICD-9: 724.5 Active 05/07/2013 Unknown COPD (chronic obstructive pulmonary disease) with acute bronchitis ICD-9: 491.22 Active 04/16/2013 Unknown ACUTE MAXILLARY SINUSITIS ICD-9: 461.0 Resolved 04/16/2013 Unknown ACUTE SINUSITIS ICD-9 : 461.9 Resolved 08/09/2011 Unknown CELLULITIS OF FOOT ICD -9: 682.7 Resolved 02/15/2012 Unknown Dehydration ICD-9: 276.51 Resolved 08/09/2011 Unknown Diabetic leg ulcer ICD -9: 250.80 Resolved 12/31/2012 Unknown Diarrhea ICD-9: 787.91 Resolved 05/02/2012 Unknown Diverticulitis ICD-9: 562.11 Resolved 12/14/2011 Unknown Lumbago ICD-9: 724.2 Active 03/21/2013 Unknown Abdominal pain ICD-9: 789.00 Active 02/12/2013 Unknown Callus ICD-9: 700 Active 12/31/2012 Unknown Hypothryroidism Unknown Active 09/06/2012 Unknown HYPOTHYROIDISM ICD-9: 244.9 Active 09/06/2012 Unknown Gastroenteritis ICD-9 : 558.9 Active 08/13/2012 Unknown Thrush ICD-9: 112.0 Active 07/06/2012 Unknown VAC STREP PNEUMONIAE-FLU ICD-9: V06.6 Active 06/07/2012 Unknown Labial cyst ICD-9: 624.8 Active 05/28/2012 Unknown Foreign body in foot or toe ICD-9: 917.6 Active 02/27/2012 Unknown Trigger point of extremity ICD-9: 729.5 Active 12/14/2011 Unknown Nausea vomiting and diarrhea ICD-9: 787.01 Active 11/30/2011 Unknown Dyspnea ICD-9: 786.09 Active 11/03/2011 Unknown FALL AGAINST OBJECT ICD-9: E888.1 Active 11/03/2011 Unknown Wheezing ICD-9: 786.07 Active 11/03/2011 Unknown DEPRESSIVE DISORDER NEC ICD-9: 311 Active 10/24/2011 Unknown Ulcer of toe ICD-9: 707.15 Active 10/24/2011 Unknown Anxiety, generalized ICD-9: 300.02 Active 08/15/2011 Unknown Anxiety ICD-9: 300.00 Active 08/09/2011 Unknown Tachycardia ICD-9: 785.0 Active 08/09/2011 Unknown Sciatica Unknown Active 08/01/2011 Unknown Sacroiliitis ICD-9: 720.2 Active 08/01/2011 Unknown Fibromyalgia ICD-9: 729.1 Active 06/20/2011 Unknown Acid reflux Unknown Active 02/11/2011 Unknown Allergies Unknown Active 02/11/2011 Unknown Depression Unknown Active 02/11/2011 Unknown Diabetes Unknown Active 02/11/2011 Unknown Hypertension Unknown Active 02/11/2011 Unknown Irritable bowel syndrome Unknown Active 02/11/2011 Unknown Problems Condition Codes Effective Dates Condition Status Acute recurrent pansinusitis ICD-9: 461.8 ICD-10: J01.41 05/21/2018 Active Headache ICD-9: 784.0 ICD-10: R51 12/16/2015 Active Other hypotension ICD- 9: 458.8 ICD-10: I95.89 05/21/2018 Active Repeated falls ICD-9: 781.99 ICD-10: R29.6 05/21/2018 Active Slurred speech ICD-9: 784.59 ICD-10: R47.81 05/21/2018 Active Type 2 diabetes mellitus with hyperglycemia ICD-9: 250.00 ICD-10: E11.65 05/23/2016 Active Essential (primary) hypertension ICD-9: 401.1 ICD-10: I10 06/13/2017 Active Generalized anxiety disorder ICD-9: 300.00 ICD-10: F41.1 05/16/2018 Active Chronic maxillary sinusitis ICD-9: 473.0 ICD-10: J32.0 01/30/2017 Active Cough ICD-9: 786.2 ICD-10: R05 11/09/2015 Active Generalized anxiety disorder ICD-9: 300.02 ICD-10: F41.1 05/23/2016 Active Weakness ICD-9: 780.79 ICD-10: R53.1 04/10/2018 Active Low back pain ICD-9: 724.2 ICD-10: M54.5 09/13/2016 Active Anemia, unspecified ICD-9: 285.9 ICD-10: D64.9 02/20/2018 Active Dysuria ICD-9: 788.1 ICD-10: R30.0 04/10/2016 Active Vitamin D deficiency, unspecified ICD-9: 268.9 ICD-10: E55.9 02/20/2018 Active Type 2 diabetes mellitus with hyperglycemia ICD-9: 250.02 ICD-10: E11.65 03/02/2015 Active Unspecified injury of head, initial encounter ICD-9: 959.01 ICD-10: S09.90XA 09/27/2017 Active Encounter for general adult medical examination with abnormal findings ICD-9: V70.0 ICD-10: Z00.01 09/28/2015 Active Encounter for screening mammogram for malignant neoplasm of breast ICD-9: V76.12 ICD-10: Z12.31 10/27/2017 Active Chronic pain syndrome ICD-9: 338.4 ICD-10: G89.4 05/23/2016 Active 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 loss (chronic) ICD-9: 280.0 ICD-10: D50.0 08/09/2016 Active Hordeolum externum left upper eyelid ICD-9: 373.11 ICD-10: H00.014 07/27/2017 Active Chronic obstructive pulmonary disease, unspecified ICD-9: 496 ICD-10: J44.9 02/01/2016 Active Unsteadiness on feet ICD-9: 781.2 ICD-10: R26.81 11/11/2016 Active Periapical abscess without sinus ICD-9: 522.5 ICD-10: K04.7 04/21/2017 Active Cellulitis of abdominal wall ICD-9: 682.2 ICD-10: L03.311 04/18/2017 Active Essential (primary) hypertension ICD-9: 401.9 ICD-10: I10 05/23/2016 Active Generalized abdominal pain ICD-9: 789.07 ICD-10: R10.84 02/17/2017 Active Hypokalemia ICD-9: 276.8 ICD-10: E87.6 02/17/2017 Active Paroxysmal atrial fibrillation ICD-9: 427.31 ICD-10: I48.0 02/01/2016 Active Hypomagnesemia ICD-9: 275.2 ICD-10: E83.42 02/17/2017 Active Drug induced constipation ICD-9: 564.09 ICD-10: K59.03 02/21/2017 Active Diarrhea, unspecified ICD-9: 787.91 ICD-10: R19.7 02/13/2017 Active Pain in right shoulder ICD-9: 719.41 ICD-10: M25.511 09/13/2016 Active Hypothyroidism, unspecified ICD-9: 244.9 ICD-10: E03.9 03/20/2016 Active Obstructive sleep apnea (adult) (pediatric) ICD-9: 327.23 ICD-10: G47.33 02/25/2016 Active Restless legs syndrome ICD-9: 333.94 ICD-10: G25.81 11/26/2015 Active Diplopia ICD-9: 368.2 ICD-10: H53.2 12/13/2016 Active Other acute sinusitis ICD-9: 461.8 ICD-10: J01.80 12/13/2016 Active Fasciculation ICD-9: 781.0 ICD-10: R25.3 11/11/2016 Active Other obesity due to excess calories ICD-9: 278.00 ICD-10: E66.09 09/28/2015 Active Unilateral primary osteoarthritis, right knee ICD-9: 715.96 ICD-10: M17.11 11/11/2016 Active Zoster without complications ICD-9: 053.9 ICD-10: B02.9 10/13/2016 Active Vomiting, unspecified ICD-9: 787.03 ICD-10: R11.10 10/28/2016 Active Pain in right knee ICD -9: 719.46 ICD-10: M25.561 09/23/2016 Active Acute recurrent maxillary sinusitis ICD-9: 461.0 ICD-10: J01.01 09/23/2016 Active Allergic rhinitis due to pollen ICD-9: 477.0 ICD-10: J30.1 09/23/2016 Active Candidiasis of skin and nail ICD-9: 112.3 ICD-10: B37.2 07/26/2016 Active Cervicalgia ICD-9: 723.1 ICD-10: M54.2 09/13/2016 Active Pneumonia, unspecified organism ICD-9: 486 ICD-10: J18.9 07/26/2016 Active Menopausal and female climacteric states ICD-9: 627.2 ICD-10: N95.1 04/18/2016 Active Major depressive disorder, single episode, mild ICD-9: 311 ICD-10: F32.0 03/20/2016 Active Cellulitis of right lower limb ICD-9: 682.6 ICD-10: L03.115 03/10/2016 Active Localized edema ICD-9 : 782.3 ICD-10: R60.0 03/10/2016 Active Other elevated white blood cell count ICD-9: 288.69 ICD-10: D72.828 03/10/2016 Active Encounter for immunization ICD-9: V03.82 ICD-10: Z23 02/25/2016 Active Other conjunctivitis ICD-9: 372.33 ICD-10: H10.89 02/25/2016 Active Unspecified asthma, uncomplicated ICD-9: 493.90 ICD-10: J45.909 02/25/2016 Active VAC STREP PNEUMONIAE-FLU ICD-9: V06.6 ICD-10: Z23 06/07/2012 Active Drug-induced adrenocortical insufficiency ICD-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 ICD-10: E27.3 12/16/2015 Active Pleurodynia ICD-9: 786.50 ICD-10: R07.81 12/07/2015 Active Syncope and collapse ICD-9: 780.2 ICD-10: R55 12/07/2015 Active Addisonian crisis ICD- 9: 255.41 ICD-10: E27.2 11/11/2015 Active Acute bronchitis due to other specified organisms ICD-9: 466.0 ICD-10: J20.8 11/09/2015 Active Other acute sinusitis ICD-9: 461.9 ICD-10: J01.80 11/09/2015 Active Other malaise ICD-9: 780.79 ICD-10: R53.81 11/09/2015 Active Cellulitis of right toe ICD-9: 681.10 ICD-10: L03.031 10/26/2015 Active Pain in left knee ICD- 9: 719.46 ICD-10: M25.562 10/26/2015 Active Body mass index (BMI) 40.0-44.9, adult ICD-9: V85.41 ICD-10: Z68.41 08/09/2015 Active Edema, unspecified ICD -9: 782.3 ICD-10: R60.9 04/13/2015 Active Rash ICD-9: 782.1 01/14/2015 Active CVA (cerebral vascular accident) ICD-9: 434.91 12/24/2014 Active Allergic rhinitis ICD- 9: 477.9 09/08/2014 Active Sciatica ICD-9: 724.3 06/12/2014 Active Urinary urgency ICD-9 : 788.63 04/21/2014 Active DIABETES TYPE II ICD-9 : 250.00 04/15/2014 Active CHRONIC SINUSITIS ICD- 9: 473.9 03/25/2014 Active Right knee pain ICD-9 : 719.46 03/25/2014 Active Blister of leg ICD-9: 916.2 03/03/2014 Active ESSENTIAL HYPERTENSION ICD-9: 401.9 02/13/2014 Active Diabetes mellitus type 2, uncontrolled ICD-9: 250.02 01/27/2014 Active OPEN WND KNEE/LEG/ANKLE ICD-9: 891.0 12/26/2013 Active Cellulitis of right leg ICD-9: 682.6 12/12/2013 Active DYSURIA ICD-9: 788.1 11/18/2013 Active Asthma exacerbation ICD-9: 493.92 11/14/2013 Active COUGH ICD-9: 786.2 11/14/2013 Active EDEMA ICD-9: 782.3 11/14/2013 Active Wrist pain, left ICD-9 : 719.43 09/23/2013 Active Encounter for long-term (current) use of other medications ICD-9: V58.69 2013 Active Blister of right foot ICD-9: 917.2 07/19/2013 Active Muscle spasms of neck ICD-9: 728.85 06/27/2013 Active OBESITY ICD-9: 278.00 06/10/2013 Active ACUTE BRONCHITIS ICD-9 : 466.0 05/07/2013 Active Back pain ICD-9: 724.5 05/07/2013 Active COPD (chronic obstructive pulmonary disease) with acute bronchitis ICD-9: 491.22 04/16/2013 Active ACUTE MAXILLARY SINUSITIS ICD-9: 461.0 04/16/2013 Resolved ACUTE SINUSITIS ICD-9 : 461.9 08/09/2011 Resolved CELLULITIS OF FOOT ICD -9: 682.7 02/15/2012 Resolved Dehydration ICD-9: 276.51 08/09/2011 Resolved Diabetic leg ulcer ICD -9: 250.80 12/31/2012 Resolved Diarrhea ICD-9: 787.91 05/02/2012 Resolved Diverticulitis ICD-9: 562.11 12/14/2011 Resolved Lumbago ICD-9: 724.2 03/21/2013 Active Abdominal pain ICD-9: 789.00 02/12/2013 Active Callus ICD-9: 700 12/31/2012 Active Hypothryroidism Unknown 09/06/2012 Active HYPOTHYROIDISM ICD-9: 244.9 09/06/2012 Active Gastroenteritis ICD-9 : 558.9 08/13/2012 Active Thrush ICD-9: 112.0 07/06/2012 Active VAC STREP PNEUMONIAE-FLU ICD-9: V06.6 06/07/2012 Active Labial cyst ICD-9: 624.8 05/28/2012 Active Foreign body in foot or toe ICD-9: 917.6 02/27/2012 Active Trigger point of extremity ICD-9: 729.5 12/14/2011 Active Nausea vomiting and diarrhea ICD-9: 787.01 11/30/2011 Active Dyspnea ICD-9: 786.09 11/03/2011 Active FALL AGAINST OBJECT ICD-9: E888.1 11/03/2011 Active Wheezing ICD-9: 786.07 11/03/2011 Active DEPRESSIVE DISORDER NEC ICD-9: 311 10/24/2011 Active Ulcer of toe ICD-9: 707.15 10/24/2011 Active Anxiety, generalized ICD-9: 300.02 08/15/2011 Active Anxiety ICD-9: 300.00 08/09/2011 Active Tachycardia ICD-9: 785.0 08/09/2011 Active Sciatica Unknown 08/01/2011 Active Sacroiliitis ICD-9: 720.2 08/01/2011 Active Fibromyalgia ICD-9: 729.1 06/20/2011 Active Acid reflux Unknown 02/11/2011 Active Allergies Unknown 02/11/2011 Active Depression Unknown 02/11/2011 Active Diabetes Unknown 02/11/2011 Active Hypertension Unknown 02/11/2011 Active Irritable bowel syndrome Unknown 02/11/2011 Active Medications Medication Codes Instructions Start Date Stop Date Status Fill Instructions Jerry OttoYayoar U-300 Insulin 300 unit/mL (1.5 mL) subcutaneous pen RxNorm: 7282512 25 in am and 55 at HS Unit(s) SQ BID 05/30/2018 10/26/2018 Active fill 30 day supply mupirocin 2 % topical ointment RxNorm: 739648 APPLY TO SORE IN BELLY BUTTON TWICE DAILY 05/23/2018 No Stop Date Active Flagyl 500 mg tablet RxNorm: 162615 1 Tablet(s) PO TID 201705/30/2018 Inactive cefdinir 300 mg capsule RxNorm: 279611 1 Capsule(s) PO BID 05/30/2018 Inactive Novolog Flexpen U-100 Insulin aspart 100 unit/mL subcutaneous RxNorm: 2893547 10 units with meals plus SSI in comments per dr raines Unit(s) SQ 05/18/2018 No Stop Date Active Novolg 10 units before meals PLUS extra if blood sugar is high. Add 1 u for BG 151-175, 2u for BG 176-200, 3 u for BG 201-225, 4u BG 226-250, 6u for BG 251-275, add 7u for BG 276-300, add 8u 301-325 Xanax 0.5 mg tablet RxNorm: 764219 1 Tablet(s) BID as needed 05/16/2018 06/14/2018 Active Shreetatianna ClaritaoStar U-300 Insulin 300 unit/mL (1.5 mL) subcutaneous pen RxNorm: 5076157 25 in am and 55 at HS Unit(s) SQ BID per dr raines 05/16/2018 05/29/2018 Inactive nystatin 100,000 unit/mL oral suspension RxNorm: 718851 Unit(s) 5 Milliliter(s) PO QID swish and swallow 05/07/20182017 Inactive Tessalon Perles 100 mg capsule RxNorm: 959456 Capsule(s) Capsule(s) 2 Capsule(s) PO TID as needed 05/03/2018 No Stop Date Active Percocet 10 mg-325 mg tablet RxNorm: 7029056 1-2 Tablet(s) PO Q6 PRN 05/03/2018 05/17/2018 Inactive FreeStyle Test strips RxNorm: USE ONE STRIP TO CHECK GLUCOSE 4 TIMES DAILY 04/30/2018 No Stop Date Active promethazine 25 mg tablet RxNorm: 008455 Tablet(s) 1 Tablet(s) PO Q6 PRN TAKE NEEDED ONLY!!! 04/27/2018 No Stop Date Active digoxin 125 mcg tablet RxNorm: 577917 TAKE 1 TABLET BY MOUTH ONCE DAILY 04/23/2018 No Stop Date Active Lasix 40 mg tablet RxNorm: 763740 TAKE 1 TABLET BY MOUTH TWICE DAILY 04/19/2018 No Stop Date Active Vitamin D2 50,000 unit capsule RxNorm: 9175120 1 Capsule(s) PO QW 04/17/2018 06/15/2018 Active Tessalon Perles 100 mg capsule RxNorm: 344310 Capsule(s) Capsule(s) 2 Capsule(s) PO TID as needed 04/17/2018 05/02/2018 Inactive Xanax 0.5 mg tablet RxNorm: 611706 1 Tablet(s) BID as needed 04/09/2018 05/08/2018 Inactive Percocet 10 mg-325 mg tablet RxNorm: 4931045 1-2 Tablet(s) PO Q6 PRN 04/05/2018 04/19/2018 Inactive colestipol 1 gram tablet RxNorm: 3316942 TAKE ONE TABLET BY MOUTH TWICE DAILY 03/30/2018 No Stop Date Active Tessalon Perles 100 mg capsule RxNorm: 624589 Capsule(s) Capsule(s) 2 Capsule(s) PO TID as needed 03/21/2018 04/16/2018 Inactive nystatin 100,000 unit/mL oral suspension RxNorm: 145463 Unit(s) 5 Milliliter(s) PO QID swish and swallow 03/21/20182017 Inactive Xanax 0.5 mg tablet RxNorm: 895955 Tablet(s) BID as needed 04/09/2018 Inactive Slow Fe 47.5 mg iron tablet,extended release RxNorm: 1 Tablet(s) PO every other day 03/12/2018 04/10/2018 Inactive Percocet 10 mg-325 mg tablet RxNorm: 1822403 1-2 Tablet(s) PO Q6 PRN 03/12/2018 03/26/2018 Inactive Slow Fe 47.5 mg iron tablet,extended release RxNorm: 1 Tablet(s) PO 3 x week 02/28/2018 03/11/2018 Inactive promethazine 25 mg tablet RxNorm: 745307 Tablet(s) 1 Tablet(s) PO Q6 PRN TAKE NEEDED ONLY!!! 02/21/2018 04/26/2018 Inactive gabapentin 600 mg tablet RxNorm: 767571 Tablet(s) TAKE ONE & ONE-HALF TABLETS BY MOUTH THREE TIMES DAILY 02/20/20182018 Active Cymbalta 60 mg capsule,delayed release RxNorm: 865794 1 Capsule(s) PO daily take with 30mg tablet 02/20/2018 08/18/2018 Active Cymbalta 30 mg capsule,delayed release RxNorm: 012648 Capsule(s) TAKE ONE CAPSULE BY MOUTH ONCE DAILY - TAKE WITH THE 60 MG DOSE FOR A TOTAL OF 90 MG 02/20/2018 08/18/2018 Active Vitamin D2 50,000 unit capsule RxNorm: 3465222 1 Capsule(s) PO QW 02/20/2018 02/19/2018 Inactive Vitamin D2 50,000 unit capsule RxNorm: 4851035 1 Capsule(s) PO QW 02/20/2018 04/16/2018 Inactive mupirocin 2 % topical ointment RxNorm: 445787 APPLY TO SORE IN BELLY BUTTON TWICE DAILY 02/15/2018 05/22/2018 Inactive Percocet 10 mg-325 mg tablet RxNorm: 6332048 1-2 Tablet(s) PO Q6 PRN 02/14/2018 02/28/2018 Inactive Shreeestephaniamary OttoYayoar U-300 Insulin 300 unit/mL (1.5 mL) subcutaneous pen RxNorm: 4105729 40 Unit(s) SQ BID per dr raines 02/07/2018 03/08/2018 Inactive nystatin 100,000 unit/mL oral suspension RxNorm: 366413 5 Milliliter(s) PO QID swish and swallow 02/02/2018 02/11/2018 Inactive mupirocin 2 % topical ointment RxNorm: 304804 1 Application TOP BID 01/30/2018 02/08/2018 Inactive Tessalon Perles 100 mg capsule RxNorm: 181392 Capsule(s) 2 Capsule(s) PO TID as needed 01/23/2018 03/20/2018 Inactive Xanax 0.5 mg tablet RxNorm: 438734 Tablet(s) TAKE ONE TABLET BY MOUTH THREE TIMES DAILY NEEDED 01/17/20182017 Inactive ropinirole 1 mg tablet RxNorm: 319929 1 Tablet(s) PO BID 201705/10/2018 Inactive digoxin 125 mcg tablet RxNorm: 458512 1 Tablet(s) PO daily 04/22/2018 Inactive Percocet 10 mg-325 mg tablet RxNorm: 8516364 1-2 Tablet(s) PO Q6 PRN 01/04/2018 01/18/2018 Inactive Percocet 10 mg-325 mg tablet RxNorm: 1346796 1-2 Tablet(s) PO Q6 PRN 01/02/2018 01/03/2018 Inactive promethazine 25 mg tablet RxNorm: 662996 Tablet(s) 1 Tablet(s) PO Q6 PRN TAKE NEEDED ONLY!!! 01/02/2018 02/20/2018 Inactive pantoprazole 40 mg tablet,delayed release RxNorm: 892343 TAKE 1 TABLET BY MOUTH ONCE DAILY 12/25/2017 No Stop Date Active mupirocin 2 % topical ointment RxNorm: 634791 1 Application TOP BID 12/22/2017 12/31/2017 Inactive fluconazole 150 mg tablet RxNorm: 413500 1 Tablet(s) PO every other day x 3 doses 12/14/2017 12/23/2017 Inactive Percocet 10 mg-325 mg tablet RxNorm: 8035194 1-2 Tablet(s) PO Q6 PRN 12/13/2017 12/27/2017 Inactive hyoscyamine 0.125 mg sublingual tablet RxNorm: 1692385 Tablet(s) 1 Tablet(s) SL TID as needed 12/13/2017 04/11/2018 Inactive nystatin 100,000 unit/gram topical powder RxNorm: 676036 APPLY POWDER TOPICALLY 4 TIMES DAILY 12/11/2017 No Stop Date Active Xanax 0.5 mg tablet RxNorm: 733061 Tablet(s) TAKE ONE TABLET BY MOUTH THREE TIMES DAILY NEEDED 12/06/20172017 Inactive nitrofurantoin 50 mg capsule RxNorm: 855204 1 Capsule(s) PO BID 12/01/2017 11/30/2017 Inactive take probiotic BID x 7 days nitrofurantoin 50 mg capsule RxNorm: 198083 1 Capsule(s) PO BID 12/01/2017 12/07/2017 Inactive take probiotic BID x 7 days mupirocin 2 % topical ointment RxNorm: 715353 1 Application TOP BID 11/27/2017 12/06/2017 Inactive Tessalon Perles 100 mg capsule RxNorm: 447902 Capsule(s) 2 Capsule(s) PO TID as needed 11/21/2017 01/22/2018 Inactive nystatin 100,000 unit/mL oral suspension RxNorm: 929812 5 Milliliter(s) PO QID swish and swallow 11/17/2017 11/26/2017 Inactive nystatin 100,000 unit/mL oral suspension RxNorm: 640453 5 Milliliter(s) PO QID swish and swallow 11/17/2017 11/16/2017 Inactive Toprol XL 100 mg tablet,extended release RxNorm: 426705 TAKE ONE TABLET BY MOUTH TWICE DAILY 11/15/2017 No Stop Date Active ropinirole 1 mg tablet RxNorm: 826271 Tablet(s) BID 11/14/2017 01/10/2018 Inactive Diflucan 150 mg tablet RxNorm: 834077 Tablet(s) every other day 1 Tablet(s) PO every other day 11/14/2017 11/16/2017 Inactive Percocet 10 mg-325 mg tablet RxNorm: 2365940 1-2 Tablet(s) PO Q6 PRN 11/09/2017 11/23/2017 Inactive Flonase Allergy Relief 50 mcg/actuation nasal spray, suspension RxNorm: 2910665 2 [place] NASAL daily 11/06/20172017 Inactive cyclobenzaprine 10 mg tablet RxNorm: 319117 Tablet(s) TABLET(S) 1 TABLET(S) PO NEEDED TAKE 1 TABLET BY MOUTH EVERY 8 HOURS NEEDED 2017 No Stop Date Active Cymbalta 30 mg capsule,delayed release RxNorm: 433624 TAKE ONE CAPSULE BY MOUTH ONCE DAILY - TAKE WITH THE 60 MG DOSE FOR A TOTAL OF 90 MG 02/19/2018 Inactive Lantus Solostar U-100 Insulin 100 unit/mL (3 mL) subcutaneous pen RxNorm: 719843 Unit(s) SQ 35 units QAM and 55 units QHS Unit(s) SQ 10/27/2017 02/07/2018 Inactive Wants insulin pens Percocet 10 mg-325 mg tablet RxNorm: 9004416 1-2 Tablet(s) PO Q6 PRN 10/27/2017 11/08/2017 Inactive promethazine 25 mg tablet RxNorm: 202504 Tablet(s) 1 Tablet(s) PO Q6 PRN TAKE NEEDED ONLY!!! 10/27/2017 01/01/2018 Inactive Xanax 0.5 mg tablet RxNorm: 450454 Tablet(s) TAKE ONE TABLET BY MOUTH THREE TIMES DAILY 10/20/2017 04/08/2018 Inactive Tessalon Perles 100 mg capsule RxNorm: 254705 Capsule(s) 2 Capsule(s) PO TID as needed 10/19/2017 11/20/2017 Inactive Diflucan 150 mg tablet RxNorm: 777892 1 Tablet(s) PO every other day 10/15/2017 11/13/2017 Inactive Percocet 10 mg-325 mg tablet RxNorm: 6078123 1-2 Tablet(s) PO Q6 PRN 10/06/2017 10/20/2017 Inactive pantoprazole 40 mg tablet,delayed release RxNorm: 292455 1 Tablet(s) PO BID 10/03/2017 03/31/2018 Inactive Cymbalta 60 mg capsule,delayed release RxNorm: 329916 TAKE ONE CAPSULE BY MOUTH ONCE DAILY 09/21/2017 02/19/2018 Inactive Diflucan 150 mg tablet RxNorm: 664021 1 Tablet(s) PO every other day 09/15/2017 09/19/2017 Inactive hyoscyamine 0.125 mg sublingual tablet RxNorm: 9013967 1 Tablet(s) SL TID as needed 09/08/2017 12/12/2017 Inactive Lantus Solostar U-100 Insulin 100 unit/mL (3 mL) subcutaneous pen RxNorm: 143653 Unit(s) SQ 35 units QAM and 55 units QHS Unit(s) SQ 09/06/2017 09/20/2017 Inactive Wants insulin pens Lasix 40 mg tablet RxNorm: 074502 TAKE ONE TABLET BY MOUTH TWICE DAILY 08/25/2017 04/18/2018 Inactive ropinirole 1 mg tablet RxNorm: 971426 TAKE ONE TABLET BY MOUTH AT BEDTIME 08/25/2017 11/13/2017 Inactive Lantus U-100 Insulin 100 unit/mL subcutaneous solution RxNorm: 990209 35 units QAM and 55 units QHS Unit(s) SQ 08/21/2017 09/05/2017 Inactive Tessalon Perles 100 mg capsule RxNorm: 982410 Capsule(s) 2 Capsule(s) PO TID as needed 08/18/2017 10/18/2017 Inactive Percocet 10 mg-325 mg tablet RxNorm: 9952094 1-2 Tablet(s) PO Q6 PRN 08/16/2017 08/30/2017 Inactive pantoprazole 40 mg tablet,delayed release RxNorm: 479757 TAKE ONE TABLET BY MOUTH TWICE DAILY 08/14/2017 08/13/2017 Inactive pantoprazole 40 mg tablet,delayed release RxNorm: 534987 1 Tablet(s) PO daily 08/14/2017 10/02/2017 Inactive promethazine 25 mg tablet RxNorm: 901276 Tablet(s) 1 Tablet(s) PO Q6 PRN TAKE NEEDED ONLY!!! 08/11/2017 10/26/2017 Inactive omeprazole 20 mg capsule,delayed release RxNorm: 712108 1 Capsule(s) PO daily TAKE 1 CAPSULE BY MOUTH ONCE DAILY 08/07/2017 10/26/2017 Inactive nystatin 100,000 unit/mL oral suspension RxNorm: 630712 5 Milliliter(s) PO QID swish and swallow 08/07/2017 08/16/2017 Inactive mupirocin 2 % topical ointment RxNorm: 218623 APPLY TO SORE IN BELLY BUTTON TWICE DAILY 08/07/2017 02/14/2018 Inactive omeprazole 20 mg capsule,delayed release RxNorm: 997390 1 Capsule(s) PO BID TAKE 1 CAPSULE BY MOUTH TWICE DAILY 08/03/2017 08/06/2017 Inactive Diflucan 150 mg tablet RxNorm: 780366 1 Tablet(s) PO daily 08/05/2017 Inactive hyoscyamine 0.125 mg sublingual tablet RxNorm: 5506343 1 Tablet(s) SL TID as needed 08/03/2017 09/01/2017 Inactive gentamicin 0.3 % eye drops RxNorm: 620056 2 Drop(s) ophthalmic (eye) TID 08/03/2017 08/09/2017 Inactive Levaquin 500 mg tablet RxNorm: 631108 1 Tablet(s) PO every other day x3 doses 07/27/2017 08/02/2017 Inactive gentamicin 0.3 % eye drops RxNorm: 648885 2 Drop(s) ophthalmic (eye) TID 07/27/2017 08/02/2017 Inactive dicyclomine 10 mg capsule RxNorm: 307057 1 Capsule(s) PO TID 08/02/2017 Inactive Levaquin 500 mg tablet RxNorm: 062211 1 Tablet(s) PO daily 12/201707/26/2017 Inactive Lantus U-100 Insulin 100 unit/mL subcutaneous solution RxNorm: 294402 INJECT 35 UNITS SUBCUTANEOUSLY IN THE MORNING AND 55 UNITS AT BEDTIME 07/24/2017 09/05/2017 Inactive Tessalon Perles 100 mg capsule RxNorm: 488448 2 Capsule(s) PO TID as needed 07/24/2017 08/17/2017 Inactive Percocet 10 mg-325 mg tablet RxNorm: 4757311 1-2 Tablet(s) PO Q6 PRN 07/21/2017 08/04/2017 Inactive promethazine 25 mg tablet RxNorm: 614377 1 Tablet(s) PO Q6 PRN 1 Tablet(s) PO Q6 PRN 07/19/2017 07/26/2017 Inactive Cartia XT 240 mg capsule,extended release RxNorm: 318263 1 Capsule(s) PO daily 06/27/2017 06/21/2018 Active potassium chloride ER 20 mEq tablet,extended release RxNorm: 464332 Tablet(s) TAKE ONE TABLET BY MOUTH ONCE DAILY 06/21/2017 No Stop Date Active Lantus U-100 Insulin 100 unit/mL subcutaneous solution RxNorm: 812062 35 units QAM and 55 units QHS Unit(s) SQ 06/21/2017 07/20/2017 Inactive Please provide 30 day supply Percocet 10 mg-325 mg tablet RxNorm: 4083721 1-2 Tablet(s) PO Q6 PRN 06/21/2017 07/05/2017 Inactive Cartia XT 180 mg capsule,extended release RxNorm: 968947 Capsule(s) BID 06/21/2017 06/26/2017 Inactive Xanax 0.5 mg tablet RxNorm: 901628 Tablet(s) TAKE ONE TABLET BY MOUTH THREE TIMES DAILY 06/21/2017 08/19/2017 Inactive digoxin 125 mcg tablet RxNorm: 128051 1 Tablet(s) PO daily 10/18/2017 Inactive gabapentin 600 mg tablet RxNorm: 044205 Tablet(s) TAKE ONE & ONE-HALF TABLETS BY MOUTH THREE TIMES DAILY 06/21/20172017 Inactive dicyclomine 10 mg capsule RxNorm: 604074 1 Capsule(s) PO TID 07/26/2017 Inactive Lantus U-100 Insulin 100 unit/mL subcutaneous solution RxNorm: 967419 35 units QAM and 55 units QHS Unit(s) SQ 06/13/2017 06/20/2017 Inactive Please provide 30 day supply potassium chloride ER 20 mEq tablet,extended release RxNorm: 123120 TAKE ONE TABLET BY MOUTH ONCE DAILY 06/02/2017 Inactive cyclobenzaprine 10 mg tablet RxNorm: 988877 Tablet(s) TABLET(S) 1 TABLET(S) PO NEEDED TAKE 1 TABLET BY MOUTH EVERY 8 HOURS NEEDED 201711/02/2017 Inactive Tessalon Perles 100 mg capsule RxNorm: 976385 2 Capsule(s) PO TID as needed 06/01/2017 07/23/2017 Inactive promethazine 25 mg tablet RxNorm: 537075 1 Tablet(s) PO Q6 PRN 1 Tablet(s) PO Q6 PRN 05/25/2017 06/01/2017 Inactive gabapentin 600 mg tablet RxNorm: 231057 TAKE ONE & ONE-HALF TABLETS BY MOUTH THREE TIMES DAILY 05/23/2017 06/20/2017 Inactive promethazine 25 mg tablet RxNorm: 987878 1 Tablet(s) PO Q6 PRN 1 Tablet(s) PO Q6 PRN 05/19/2017 05/24/2017 Inactive Flagyl 500 mg tablet RxNorm: 431566 1 Tablet(s) PO TID 201605/26/2017 Inactive Levaquin 500 mg tablet RxNorm: 083866 1 Tablet(s) PO daily 05/16/2017 Inactive Tessalon Perles 100 mg capsule RxNorm: 648477 2 Capsule(s) PO TID as needed 05/17/2017 05/31/2017 Inactive Flagyl 500 mg tablet RxNorm: 463062 1 Tablet(s) PO TID 201605/16/2017 Inactive hyoscyamine 0.125 mg sublingual tablet RxNorm: 0098360 1 Tablet(s) SL TID as needed 05/17/2017 06/12/2017 Inactive Levaquin 500 mg tablet RxNorm: 847535 1 Tablet(s) PO daily 05/23/2017 Inactive Cymbalta 60 mg capsule,delayed release RxNorm: 437340 1 Capsule(s) PO daily take with 30mg tablet 05/16/2017 08/13/2017 Inactive Bentyl 10 mg capsule RxNorm: 104768 1 Capsule(s) PO TID as needed 05/12/2017 06/10/2017 Inactive Levsin 0.125 mg tablet RxNorm: 1693070 1 Tablet(s) PO Q4 PRN 1-2 Tablet(s) PO Q4 PRN 05/11/2017 05/11/2017 Inactive nystatin 100,000 unit/gram topical powder RxNorm: 964326 Gram(s) APPLY POWDER TOPICALLY 4 TIMES DAILY 05/11/20172017 Inactive nystatin 100,000 unit/mL oral suspension RxNorm: 758985 4 Milliliter(s) PO QID swish and swallow 05/10/2017 05/19/2017 Inactive and Monistat over the counter colestipol 1 gram tablet RxNorm: 8495939 TAKE ONE TABLET BY MOUTH TWICE DAILY 05/08/2017 03/29/2018 Inactive Lantus 100 unit/mL subcutaneous solution RxNorm: 789119 30 units QAM and 50 units QHS Unit(s) SQ 04/28/2017 05/27/2017 Inactive Please provide 30 day supply Lantus Solostar 100 unit/mL (3 mL) subcutaneous insulin pen RxNorm: 754813 Unit( s) SQ BID 04/28/2017 06/13/2017 Inactive 30 units q am and 50units at night Lantus 100 unit/mL subcutaneous solution RxNorm: 526312 30 units QAM and 50 units QHS Unit(s) SQ 04/28/2017 04/27/2017 Inactive Please provide 30 day supply Levsin 0.125 mg tablet RxNorm: 2150685 1 Tablet(s) PO Q4 PRN 1-2 Tablet(s) PO Q4 PRN 04/25/2017 05/10/2017 Inactive promethazine 25 mg tablet RxNorm: 692364 1 Tablet(s) PO Q6 PRN 1 Tablet(s) PO Q6 PRN 04/25/2017 05/02/2017 Inactive Toprol XL 100 mg tablet,extended release RxNorm: 855897 TAKE ONE TABLET BY MOUTH TWICE DAILY 04/24/2017 11/14/2017 Inactive Flagyl 500 mg tablet RxNorm: 599025 1 Tablet(s) PO TID 201604/30/2017 Inactive Levaquin 500 mg tablet RxNorm: 505948 1 Tablet(s) PO daily 05/201604/27/2017 Inactive Voltaren 1 % topical gel RxNorm: 544847 4 Gram(s) TOP QID 04/1810/14/2017 Inactive mupirocin 2 % topical ointment RxNorm: 479384 1 Application TOP BID 04/18/2017 04/27/2017 Inactive apply to sore in belly button Lantus Solostar 100 unit/mL (3 mL) subcutaneous insulin pen RxNorm: 392375 Unit( s) SQ BID 04/18/2017 04/27/2017 Inactive 20 units q am and 50units at night levothyroxine 88 mcg tablet RxNorm: 606701 1 Tablet(s) PO daily TAKE ONE TABLET BY MOUTH ONCE DAILY 04/06/2017 04/17/2017 Inactive Xanax 0.5 mg tablet RxNorm: 770358 Tablet(s) TAKE ONE TABLET BY MOUTH THREE TIMES DAILY 04/04/2017 06/02/2017 Inactive Percocet 10 mg-325 mg tablet RxNorm: 9320902 1-2 Tablet(s) PO Q6 PRN 04/04/2017 04/18/2017 Inactive cyclobenzaprine 10 mg tablet RxNorm: 110413 TAKE ONE TABLET BY MOUTH EVERY 8 HOURS NEEDED 04/03/2017 06/01/2017 Inactive potassium chloride ER 20 mEq tablet,extended release RxNorm: 567432 1 Tablet(s) PO daily 03/28/2017 06/01/2017 Inactive nystatin 100,000 unit/gram topical cream RxNorm: 585871 1 Application TOP BID 03/27/2017 04/09/2017 Inactive Levsin 0.125 mg tablet RxNorm: 3280224 1 Tablet(s) PO Q4 PRN 1-2 Tablet(s) PO Q4 PRN 03/27/2017 04/24/2017 Inactive promethazine 25 mg tablet RxNorm: 403859 1 Tablet(s) PO Q6 PRN 03/23/2017 03/29/2017 Inactive nystatin 100,000 unit/gram topical powder RxNorm: 295856 APPLY POWDER TOPICALLY 4 TIMES DAILY 03/17/2017 05/10/2017 Inactive Percocet 10 mg-325 mg tablet RxNorm: 9670608 1-2 Tablet(s) PO Q6 PRN 03/09/2017 03/23/2017 Inactive Levsin 0.125 mg tablet RxNorm: 7145393 1-2 Tablet(s) PO Q4 PRN 03/06/2017 03/26/2017 Inactive promethazine 25 mg tablet RxNorm: 482508 1 Tablet(s) PO Q6 PRN 03/06/2017 03/13/2017 Inactive potassium chloride ER 20 mEq tablet,extended release RxNorm: 575350 1 Tablet(s) PO BID 02/23/2017 03/09/2017 Inactive Levsin/SL 0.125 mg sublingual tablet RxNorm: 6914221 1-2 Tablet(s) SL Q4 PRN 02/17/2017 03/26/2017 Inactive potassium chloride ER 20 mEq tablet,extended release RxNorm: 570365 1 Tablet(s) PO BID 02/17/2017 02/21/2017 Inactive magnesium oxide 400 mg tablet RxNorm: 725409 1 Tablet(s) PO daily 02/17/2017 02/21/2017 Inactive then twice weekly thereafter Levsin 0.125 mg tablet RxNorm: 9337225 1-2 Tablet(s) PO Q4 PRN 02/17/2017 02/16/2017 Inactive promethazine 25 mg tablet RxNorm: 318913 1 Tablet(s) PO Q6 PRN 02/10/2017 03/05/2017 Inactive Percocet 10 mg-325 mg tablet RxNorm: 9838087 1-2 Tablet(s) PO Q6 PRN 02/09/2017 02/23/2017 Inactive Cymbalta 60 mg capsule,delayed release RxNorm: 794512 1 Capsule(s) PO daily take with 30mg tablet 02/06/2017 05/06/2017 Inactive Cymbalta 30 mg capsule,delayed release RxNorm: 777352 1 Capsule(s) PO daily take with 60mg tablet 02/06/2017 02/19/2018 Inactive take with 60mg=90mg Vitamin D2 50,000 unit capsule RxNorm: 391186 1 Capsule(s) PO daily 01/17/2017 01/16/2017 Inactive daily x 6 mths Tresiba FlexTouch U-100 100 unit/mL (3 mL) subcutaneous insulin pen RxNorm: 9027490 40 Unit(s) SQ daily 01/17/20172016 Inactive Tresiba FlexTouch U-100 100 unit/mL (3 mL) subcutaneous insulin pen RxNorm: 2509806 40 Unit(s) SQ daily 01/17/20172016 Inactive Vitamin D2 50,000 unit capsule RxNorm: 350925 1 Capsule(s) PO daily 01/17/2017 10/26/2017 Inactive daily x 6 mths Cymbalta 30 mg capsule,delayed release RxNorm: 157992 1 Capsule(s) PO daily 01/16/2017 02/05/2017 Inactive take with 60mg=90mg Percocet 10 mg-325 mg tablet RxNorm: 5081713 1-2 Tablet(s) PO Q6 PRN 01/13/2017 01/27/2017 Inactive gabapentin 600 mg tablet RxNorm: 804595 TAKE ONE & ONE-HALF TABLETS BY MOUTH THREE TIMES DAILY 01/10/2017 05/09/2017 Inactive Percocet 10 mg-325 mg tablet RxNorm: 7488082 1-2 Tablet(s) PO Q6 PRN 12/21/2016 01/04/2017 Inactive Xanax 0.5 mg tablet RxNorm: 244986 Tablet(s) TAKE ONE TABLET BY MOUTH THREE TIMES DAILY 12/20/2016 02/15/2017 Inactive promethazine 25 mg tablet RxNorm: 730423 1 Tablet(s) PO Q6 PRN 12/16/2016 12/18/2016 Inactive prednisone 20 mg tablet RxNorm: 296000 2 Tablet(s) PO daily 12/14/2016 Inactive prednisone 20 mg tablet RxNorm: 173340 2 Tablet(s) PO daily 03/26/2017 Inactive Eliquis 5 mg tablet RxNorm: 4780134 1 Tablet(s) PO BID 201601/11/2017 Inactive doxycycline monohydrate 100 mg tablet RxNorm: 946643 1 Tablet(s) PO BID 12/13/2016 03/26/2017 Inactive give doxycyline hyclate cyclobenzaprine 10 mg tablet RxNorm: 819745 TAKE ONE TABLET BY MOUTH EVERY 8 HOURS NEEDED 12/09/2016 12/28/2016 Inactive Cymbalta 60 mg capsule,delayed release RxNorm: 842626 TAKE ONE CAPSULE BY MOUTH ONCE DAILY 11/30/2016 02/05/2017 Inactive promethazine 25 mg tablet RxNorm: 740392 2 Tablet(s) PO Q6 PRN 11/29/2016 12/16/2016 Inactive Percocet 10 mg-325 mg tablet RxNorm: 8157450 1-2 Tablet(s) PO Q6 PRN 11/24/2016 12/08/2016 Inactive mupirocin 2 % topical ointment RxNorm: 790774 1 Application TOP BID 11/11/2016 11/24/2016 Inactive Xanax 0.5 mg tablet RxNorm: 526858 Tablet(s) TAKE ONE TABLET BY MOUTH THREE TIMES DAILY 11/11/2016 12/19/2016 Inactive Belviq 10 mg tablet RxNorm: 0408719 1 Tablet(s) PO BID 201612/10/2016 Inactive Toprol XL 100 mg tablet,extended release RxNorm: 407172 TAKE ONE TABLET BY MOUTH TWICE DAILY 11/04/2016 04/02/2017 Inactive albuterol sulfate concentrate 2.5 mg/0.5 mL solution for nebulization RxNorm: 725286 USE ONE VIAL IN NEBULIZER EVERY 4 TO 6 HOURS NEEDED 11/03/2016 11/12/2016 Inactive Percocet 10 mg-325 mg tablet RxNorm: 5440319 1-2 Tablet(s) PO Q6 PRN 10/31/2016 11/23/2016 Inactive promethazine 25 mg tablet RxNorm: 134091 2 Tablet(s) PO Q6 PRN 10/28/2016 11/28/2016 Inactive nystatin 100,000 unit/mL oral suspension RxNorm: 612506 5 Milliliter(s) PO QID 10/28/2016 11/06/2016 Inactive Levemir FlexTouch 100 unit/mL (3 mL) subcutaneous insulin pen RxNorm: 108166 45 Unit(s) SQ BID 10/28/2016 01/16/2017 Inactive 45 q am and 40 q anita cyclobenzaprine 10 mg tablet RxNorm: 751841 TAKE ONE TABLET BY MOUTH EVERY 8 HOURS NEEDED 10/21/2016 11/09/2016 Inactive Lasix 40 mg tablet RxNorm: 513840 TAKE ONE TABLET BY MOUTH TWICE DAILY 10/18/2016 04/15/2017 Inactive Percocet 10 mg-325 mg tablet RxNorm: 2847300 1-2 Tablet(s) PO Q6 PRN 10/18/2016 10/30/2016 Inactive acyclovir 400 mg tablet RxNorm: 649812 2 Tablet(s) PO QID 10/1310/22/2016 Inactive Lasix 40 mg tablet RxNorm: 962526 TAKE ONE TABLET BY MOUTH TWICE DAILY 10/10/2016 10/17/2016 Inactive ropinirole 1 mg tablet RxNorm: 097774 TAKE ONE TABLET BY MOUTH AT BEDTIME 10/10/2016 04/07/2017 Inactive nystatin 100,000 unit/mL oral suspension RxNorm: 751898 5 Milliliter(s) PO QID x 10 days 09/30/2016 10/09/2016 Inactive nystatin 100,000 unit/mL oral suspension RxNorm: 349588 5 Milliliter(s) PO QID x 10 days 09/30/2016 10/09/2016 Inactive Swish et swallow Flonase Allergy Relief 50 mcg/actuation nasal spray, suspension RxNorm: 3136025 2 [place] NASAL daily 09/23/20162016 Inactive Percocet 10 mg-325 mg tablet RxNorm: 0730683 1-2 Tablet(s) PO Q6 PRN 09/23/2016 10/17/2016 Inactive doxycycline monohydrate 100 mg tablet RxNorm: 908003 1 Tablet(s) PO BID 09/23/2016 10/02/2016 Inactive give doxycyline hyclate Levemir FlexTouch 100 unit/mL (3 mL) subcutaneous insulin pen RxNorm: 485161 40 Unit(s) SQ BID 09/15/2016 10/27/2016 Inactive nystatin 100,000 unit/gram topical powder RxNorm: 062190 1 Application TOP QID 09/13/2016 09/22/2016 Inactive Voltaren 1 % topical gel RxNorm: 264261 4 Gram(s) TOP QID 09/1303/11/2017 Inactive Anusol-HC 25 mg rectal suppository RxNorm: 6803990 1 Suppository RTL HS 09/13/2016 09/26/2016 Inactive hydrocodone 10 mg-acetaminophen 325 mg tablet RxNorm: 658195 1-2 Tablet(s) PO Q6 as needed 09/13/2016 09/22/2016 Inactive Linzess 145 mcg capsule RxNorm: 4082181 1 Capsule(s) PO daily 09/01/2016 10/26/2017 Inactive Linzess 145 mcg capsule RxNorm: 6728226 1 Capsule(s) PO daily 09/01/2016 08/31/2016 Inactive Zofran 4 mg tablet RxNorm: 835091 TAKE ONE TABLET BY MOUTH EVERY 4 TO 6 HOURS NEEDED 08/29/2016 08/02/2017 Inactive Voltaren 1 % topical gel RxNorm: 862942 4 Gram(s) TOP QID 08/2309/12/2016 Inactive levothyroxine 88 mcg tablet RxNorm: 639579 TAKE ONE TABLET BY MOUTH ONCE DAILY 08/19/2016 12/16/2016 Inactive hydrocodone 10 mg-acetaminophen 325 mg tablet RxNorm: 012511 1 Tablet(s) PO Q6 as needed 08/17/2016 09/12/2016 Inactive nystatin 100,000 unit/gram topical powder RxNorm: 170728 1 Application TOP QID 08/16/2016 08/25/2016 Inactive Cymbalta 60 mg capsule,delayed release RxNorm: 777196 TAKE ONE CAPSULE BY MOUTH ONCE DAILY 08/10/2016 11/29/2016 Inactive Voltaren 1 % topical gel RxNorm: 212736 4 Gram(s) TOP QID 08/1008/22/2016 Inactive Voltaren 1 % topical gel RxNorm: 957179 4 Gram(s) TOP QID 08/1008/09/2016 Inactive promethazine 25 mg tablet RxNorm: 046895 TAKE ONE TABLET BY MOUTH EVERY 8 HOURS NEEDED FOR NAUSEA 07/29/20162017 Inactive nystatin 100,000 unit/gram topical powder RxNorm: 146893 1 Application TOP QID 07/26/2016 08/04/2016 Inactive Levemir FlexTouch U-100 Insulin 100 unit/mL (3 mL) subcutaneous pen RxNorm: 680881 35 Unit(s) SQ BID 07/26/201609/2016 Inactive 35 q am and 30 q pm cyclobenzaprine 10 mg tablet RxNorm: 801490 TAKE ONE TABLET BY MOUTH EVERY 8 HOURS NEEDED 07/14/2016 08/22/2016 Inactive hydrocodone 10 mg-acetaminophen 325 mg tablet RxNorm: 650449 1 Tablet(s) PO Q6 as needed 07/11/2016 08/16/2016 Inactive nystatin 100,000 unit/mL oral suspension RxNorm: 778515 5 Milliliter(s) PO QID x 10 days 07/05/2016 07/04/2016 Inactive nystatin 100,000 unit/mL oral suspension RxNorm: 092336 5 Milliliter(s) PO QID x 10 days 07/05/2016 07/04/2016 Inactive nystatin 100,000 unit/mL oral suspension RxNorm: 026364 5 Milliliter(s) PO QID x 10 days 07/05/2016 07/14/2016 Inactive Swish et swallow doxycycline monohydrate 100 mg tablet RxNorm: 837055 1 Tablet(s) PO BID 06/24/2016 07/03/2016 Inactive give doxycyline hyclate promethazine 25 mg tablet RxNorm: 872654 TAKE ONE TABLET BY MOUTH EVERY 8 HOURS NEEDED FOR NAUSEA 06/01/20162016 Inactive pantoprazole 40 mg tablet,delayed release RxNorm: 535513 1 Tablet(s) PO BID 05/25/2016 08/02/2017 Inactive Zofran 4 mg tablet RxNorm: 602599 1 Tablet(s) PO Q12 PRN TAKE 1 TABLET BY MOUTH EVERY 4 TO 6 HOURS NEEDED 05/24/2016 Inactive hydrocodone 10 mg-acetaminophen 325 mg tablet RxNorm: 024309 1 Tablet(s) PO Q6 as needed 05/24/2016 07/10/2016 Inactive Levemir FlexTouch 100 unit/mL (3 mL) subcutaneous insulin pen RxNorm: 306022 25 Unit(s) SQ BID 05/24/2016 06/22/2016 Inactive Xanax 0.5 mg tablet RxNorm: 469832 Tablet(s) TAKE ONE TABLET BY MOUTH THREE TIMES DAILY 05/11/2016 07/09/2016 Inactive BD Insulin Pen Needle UF Short 31 gauge x 5/16" [place] [facility] [place] 05/05/2016 Inactive BD Insulin Pen Needle UF Short 31 gauge x 5/16" [place] [facility] [place] 06/04/2016 Inactive colestipol 1 gram tablet RxNorm: 3466085 Tablet(s) TAKE 1 TABLET BY MOUTH TWICE DAILY 04/22/2016 04/16/2017 Inactive Levemir FlexTouch 100 unit/mL (3 mL) subcutaneous insulin pen RxNorm: 119101 20 Unit(s) SQ BID 04/19/2016 05/18/2016 Inactive 25 UNITS Q AM AND 20 UNITS Q HS Cartia XT 180 mg capsule,extended release RxNorm: 737093 Capsule(s) BID 04/11/2016 04/05/2017 Inactive hydrocodone 10 mg-acetaminophen 325 mg tablet RxNorm: 156093 1 Tablet(s) PO Q6 as needed 04/11/2016 05/23/2016 Inactive Levemir FlexTouch 100 unit/mL (3 mL) subcutaneous insulin pen RxNorm: 848056 20 Unit(s) SQ BID 04/11/2016 04/18/2016 Inactive 20 UNITS Q AM AND 15 UNITS Q HS X 1 WEEK THEN 20 UNITS BID levothyroxine 88 mcg tablet RxNorm: 667845 1 Tablet(s) PO daily 03/21/2016 07/18/2016 Inactive Cymbalta 60 mg capsule,delayed release RxNorm: 750373 1 Capsule(s) PO daily 03/21/2016 07/18/2016 Inactive diltiazem ER (XR/XT) 240 mg capsule,extended release, controlled RxNorm: 130774 1 Capsule(s) PO BID 03/18/20162017 Inactive doxycycline hyclate 100 mg tablet RxNorm: 094723 1 Tablet(s) PO BID 03/11/2016 03/17/2016 Inactive Levemir FlexTouch 100 unit/mL (3 mL) subcutaneous insulin pen RxNorm: 504939 10 Unit(s) SQ BID 03/11/2016 04/09/2016 Inactive Lasix 40 mg tablet RxNorm: 284081 1 Tablet(s) PO BID 201509/06/2016 Inactive gabapentin 600 mg tablet RxNorm: 092815 Tablet(s) 1.5 TABLET(S) PO TID 03/04/2016 08/30/2016 Inactive Toujeo SoloStar 300 unit/mL (1.5 mL) subcutaneous insulin pen RxNorm: 6905543 10 Unit(s) SQ QHS 02/26/2016 03/26/2016 Inactive polymyxin B sulfate 10,000 unit-trimethoprim 1 mg/mL eye drops RxNorm: 070416 2 Drop(s) OPH TID 02/26/2016 03/03/2016 Inactive Lasix 20 mg tablet RxNorm: 839224 2 Tablet(s) PO BID TAKE 2 TABLETS BY MOUTH EVERY MORNING AND 2 TABLET BY MOUTH AT 3 PM 02/26/2016 03/10/2016 Inactive cyclobenzaprine 10 mg tablet RxNorm: 078007 Tablet(s) TABLET(S) TABLET(S) 1 TABLET (S) PO NEEDED TAKE 1 TABLET BY MOUTH EVERY 8 HOURS NEEDED 02/26/2016 07/13/2016 Inactive early fill- pt lost med Levemir FlexTouch 100 unit/mL (3 mL) subcutaneous insulin pen RxNorm: 744716 16 Unit(s) SQ QHS 02/18/2016 02/17/2016 Inactive Levemir FlexTouch 100 unit/mL (3 mL) subcutaneous insulin pen RxNorm: 378895 16 Unit(s) SQ QHS 02/18/2016 02/25/2016 Inactive Levemir 100 unit/mL subcutaneous solution RxNorm: 995976 16 Unit(s) SQ QHS 02/15/2016 02/17/2016 Inactive disp needles as well Effexor XR 37.5 mg capsule,extended release RxNorm: 090394 1 Capsule(s) QPM CAPSULE(S) PO TAKE 2 CAPSULES BY MOUTH EVERY MORNING AND 1 CAPSULE BY MOUTH EVERY NIGHT AT BEDTIME 02/15/20162015 Inactive clotrimazole 100 mg vaginal tablet RxNorm: 619136 1 Tablet(s) VAG QHS 02/05/2016 02/11/2016 Inactive clotrimazole 100 mg vaginal tablet RxNorm: 174531 1 Tablet(s) VAG QHS 02/05/2016 02/04/2016 Inactive hydrocodone 10 mg-acetaminophen 325 mg tablet RxNorm: 919999 1 Tablet(s) PO Q6 as needed 02/05/2016 04/10/2016 Inactive flecainide 100 mg tablet RxNorm: 119453 1 Tablet(s) PO BID No Stop Date Active potassium chloride ER 10 mEq tablet,extended release RxNorm: 126590 1 Tablet(s) PO daily 1 TABLET(S) PO QDAY PRN TAKE WITH LASIX 02/02/2016 01/26/2017 Inactive Brovana 15 mcg/2 mL solution for nebulization RxNorm: 058836 2 Milliliter(s) INH BID PRN 02/02/2016 03/20/2016 Inactive promethazine 25 mg tablet RxNorm: 614784 1 Tablet(s) PO Q8 as needed nausea 01/27/2016 03/20/2016 Inactive promethazine 25 mg tablet RxNorm: 897932 1 Tablet(s) PO Q6 PRN 01/27/2016 02/03/2016 Inactive nystatin 100,000 unit/mL oral suspension RxNorm: 587291 5 Unit(s) PO QID 01/12/2016 05/06/2018 Inactive promethazine 25 mg tablet RxNorm: 824574 1 Tablet(s) PO Q6 PRN 12/30/2015 01/06/2016 Inactive hydrocodone 7.5 mg-acetaminophen 325 mg tablet RxNorm: 957085 1 Tablet(s) PO q 6 hours prn for pain 12/10/2015 01/06/2016 Inactive Xanax 0.5 mg tablet RxNorm: 941399 TAKE ONE TABLET BY MOUTH THREE TIMES DAILY 12/02/2015 12/31/2015 Inactive Xanax 0.5 mg tablet RxNorm: 608225 Tablet(s) TAKE 1 TABLET BY MOUTH THREE TIMES DAILY 12/02/2015 11/30/2015 Inactive Anusol-HC 25 mg rectal suppository RxNorm: 0518099 1 Suppository RTL HS 11/27/2015 09/12/2016 Inactive ropinirole 1 mg tablet RxNorm: 275993 1 Tablet(s) PO QHS 201505/24/2016 Inactive nystatin 100,000 unit/mL oral suspension RxNorm: 838216 5 Unit(s) PO QID 11/20/2015 11/29/2015 Inactive albuterol sulfate concentrate 2.5 mg/0.5 mL solution for nebulization RxNorm: 905624 3 Milliliter(s) INH Q4-6H as needed 11/10/2015 11/02/2016 Inactive doxycycline monohydrate 100 mg tablet RxNorm: 166957 1 Tablet(s) PO BID 11/10/2015 11/19/2015 Inactive give doxycyline hyclate promethazine 25 mg tablet RxNorm: 232831 1 Tablet(s) PO Q6 PRN 11/05/2015 11/12/2015 Inactive Bactroban 2 % topical ointment RxNorm: 229665 1 APPLICATION TOP BID 10/27/2015 10/26/2017 Inactive Belviq 10 mg tablet RxNorm: 6373233 1 Tablet(s) PO BID 201511/25/2015 Inactive hydrocodone 7.5 mg-acetaminophen 325 mg tablet RxNorm: 513130 1 Tablet(s) PO q 6 hours prn for pain 10/20/2015 11/18/2015 Inactive Toprol XL 100 mg tablet,extended release RxNorm: 678776 Tablet(s) TAKE 1 TABLET BY MOUTH TWICE DAILY 10/16/20152016 Inactive Diflucan 150 mg tablet RxNorm: 185946 1 Tablet(s) PO every other day 10/14/2015 10/23/2015 Inactive Xanax 0.5 mg tablet RxNorm: 468239 Tablet(s) TAKE 1 TABLET BY MOUTH THREE TIMES DAILY 10/14/2015 05/10/2016 Inactive Toprol XL 100 mg tablet,extended release RxNorm: 735653 Tablet(s) TAKE 1 TABLET BY MOUTH TWICE DAILY 10/13/20152015 Inactive cyclobenzaprine 10 mg tablet RxNorm: 082803 Tablet(s) TABLET(S) TABLET(S) 1 TABLET (S) PO NEEDED TAKE 1 TABLET BY MOUTH EVERY 8 HOURS NEEDED 10/02/2015 10/14/2015 Inactive Zofran 4 mg tablet RxNorm: 659608 Tablet(s) 1 TABLET(S) PRN TAKE 1 TABLET BY MOUTH EVERY 4 TO 6 HOURS NEEDED 09/29/2015 12/27/2015 Inactive Synthroid 88 mcg tablet RxNorm: 025694 1 Tablet(s) PO daily 1 TABLET(S) PO DAILY 09/29/2015 10/28/2015 Inactive Patient requests 90 days supply promethazine 25 mg tablet RxNorm: 906184 1 Tablet(s) PO Q6 PRN 09/29/2015 11/04/2015 Inactive Lasix 20 mg tablet RxNorm: 760910 2 Tablet(s) PO BID 201501/18/2016 Inactive promethazine 25 mg tablet RxNorm: 145215 1 Tablet(s) PO Q6 PRN 09/22/2015 09/28/2015 Inactive hydrocodone 7.5 mg-acetaminophen 325 mg tablet RxNorm: 794454 1 Tablet(s) PO q 6 hours prn for pain 09/17/2015 10/16/2015 Inactive WelChol 625 mg tablet RxNorm: 570428 3 Tablet(s) PO BID 201503/26/2017 Inactive promethazine 25 mg tablet RxNorm: 911802 1 Tablet(s) PO Q8 as needed 09/07/2015 10/26/2017 Inactive Levemir 100 unit/mL subcutaneous solution RxNorm: 586514 16 Unit(s) SQ QHS 09/01/2015 02/14/2016 Inactive pantoprazole 40 mg tablet,delayed release RxNorm: 127995 1 Tablet(s) PO daily 09/01/2015 05/24/2016 Inactive Effexor XR 37.5 mg capsule,extended release RxNorm: 679576 Capsule(s) CAPSULE(S) PO TAKE 2 CAPSULES BY MOUTH EVERY MORNING AND 1 CAPSULE BY MOUTH EVERY NIGHT AT BEDTIME 08/27/2015 02/14/2016 Inactive promethazine 25 mg tablet RxNorm: 043577 1 Tablet(s) PO Q8 as needed 08/13/2015 09/06/2015 Inactive gabapentin 600 mg tablet RxNorm: 976575 Tablet(s) 1.5 TABLET(S) PO TID 08/13/2015 02/08/2016 Inactive hydrocodone 7.5 mg-acetaminophen 325 mg tablet RxNorm: 281397 1 Tablet(s) PO q 6 hours prn for pain 08/10/2015 09/08/2015 Inactive Zofran 4 mg tablet RxNorm: 384161 Tablet(s) 1 TABLET(S) PRN TAKE 1 TABLET BY MOUTH EVERY 4 TO 6 HOURS NEEDED 08/04/2015 08/03/2015 Inactive Zofran 4 mg tablet RxNorm: 939128 Tablet(s) 1 TABLET(S) PRN TAKE 1 TABLET BY MOUTH EVERY 4 TO 6 HOURS NEEDED 08/04/2015 09/28/2015 Inactive doxycycline monohydrate 100 mg tablet RxNorm: 670081 1 Tablet(s) PO BID 08/04/2015 08/10/2015 Inactive give doxycyline hyclate Diflucan 150 mg tablet RxNorm: 819750 1 Tablet(s) PO every other day 07/31/2015 08/09/2015 Inactive nystatin 100,000 unit/mL oral suspension RxNorm: 862150 5 Milliliter(s) PO QID 07/31/2015 07/30/2015 Inactive Diflucan 150 mg tablet RxNorm: 382010 1 Tablet(s) PO every other day 07/31/2015 07/30/2015 Inactive nystatin 100,000 unit/mL oral suspension RxNorm: 296446 5 Milliliter(s) PO QID 07/31/2015 08/09/2015 Inactive Ceftin 500 mg tablet RxNorm: 847933 1 Tablet(s) PO BID 201507/23/2015 Inactive Ceftin 500 mg tablet RxNorm: 243374 1 Tablet(s) PO BID Pre-medicate with benadryl 50 mg, pepcid 20 mg, and nathanael before each dose 07/24/2015 07/30/2015 Inactive cyclobenzaprine 10 mg tablet RxNorm: 198100 TABLET(S) TABLET(S) 1 TABLET(S) PO NEEDED TAKE 1 TABLET BY MOUTH EVERY 8 HOURS NEEDED 201502/25/2016 Inactive early fill- pt lost med Synthroid 88 mcg tablet RxNorm: 764776 1 TABLET(S) PO DAILY 07/201509/28/2015 Inactive Patient requests 90 days supply cyclobenzaprine 10 mg tablet RxNorm: 229901 Tablet(s) TABLET(S) TABLET(S) 1 TABLET (S) PO NEEDED TAKE 1 TABLET BY MOUTH EVERY 8 HOURS NEEDED 07/23/2015 10/01/2015 Inactive early fill- pt lost med Promethazine VC 6.25 mg-5 mg/5 mL syrup RxNorm: 8332973 1-2 Teaspoon(s) PO Q6 PRN as needed 07/22/2015 03/20/2016 Inactive Diflucan 150 mg tablet RxNorm: 141435 1 Tablet(s) PO daily 06/201507/22/2015 Inactive Lasix 20 mg tablet RxNorm: 853329 Tablet(s) TAKE 2 TABLETS BY MOUTH EVERY MORNING AND 2 TABLET BY MOUTH AT 3PM 07/16/2015 09/21/2015 Inactive Toprol XL 100 mg tablet,extended release RxNorm: 407005 Tablet(s) TAKE 1 TABLET BY MOUTH TWICE DAILY 07/16/20152015 Inactive Cartia XT 180 mg capsule,extended release RxNorm: 834745 Capsule(s) 1 CAPSULE(S) PO DAILY TAKE 1 CAPSULE BY MOUTH AT BEDTIME ..TAKE THIS IN ADDITION TO 240 MG IN THE MORNING 07/14/2015 04/10/2016 Inactive diltiazem ER (XR/XT) 240 mg capsule,extended release, controlled RxNorm: 713121 Capsule(s) TAKE 1 CAPSULE BY MOUTH DAILY 07/14/2015 03/17/2016 Inactive gabapentin 600 mg tablet RxNorm: 322301 Tablet(s) 1.5 TABLET(S) PO TID 07/06/2015 08/12/2015 Inactive Phenergan 25 mg tablet RxNorm: 140435 1 Tablet(s) PO Q8 as needed nausea 06/29/2015 01/25/2016 Inactive doxycycline monohydrate 100 mg tablet RxNorm: 361670 1 Tablet(s) PO BID 06/29/2015 06/28/2015 Inactive doxycycline monohydrate 100 mg tablet RxNorm: 588759 1 Tablet(s) PO BID 06/29/2015 07/08/2015 Inactive give doxycyline hyclate doxycycline monohydrate 100 mg tablet RxNorm: 136340 1 Tablet(s) PO BID 06/29/2015 06/28/2015 Inactive Lasix 20 mg tablet RxNorm: 345740 Tablet(s) TAKE 2 TABLETS BY MOUTH EVERY MORNING AND 2 TABLET BY MOUTH AT 3PM 06/29/2015 07/15/2015 Inactive Lasix 20 mg tablet RxNorm: 567540 Tablet(s) TAKE 2 TABLETS BY MOUTH EVERY MORNING AND 1 TABLET BY MOUTH AT 3PM 06/26/2015 06/28/2015 Inactive Xanax 0.5 mg tablet RxNorm: 074820 Tablet(s) TAKE 1 TABLET BY MOUTH THREE TIMES DAILY 06/26/2015 07/25/2015 Inactive Kenalog 40 mg/mL suspension for injection RxNorm: 7499457 Milliliter(s) Inj 06/26/2015 06/26/2015 Inactive hydrocodone 7.5 mg-acetaminophen 325 mg tablet RxNorm: 980356 1 Tablet(s) PO q 6 hours prn for pain 06/26/2015 07/25/2015 Inactive Dexilant 60 mg capsule, delayed release RxNorm: 170012 1 Capsule(s) PO daily 06/26/2015 08/24/2015 Inactive colestipol 1 gram tablet RxNorm: 2930383 1 TABLET(S) PO BID TAKE 1 TABLET BY MOUTH TWICE DAILY 06/16/2015 03/11/2016 Inactive hydrocodone 7.5 mg-acetaminophen 325 mg tablet RxNorm: 555026 1 Tablet(s) PO q 6 hours prn for pain 06/11/2015 06/25/2015 Inactive cyclobenzaprine 10 mg tablet RxNorm: 017778 TABLET(S) TABLET(S) 1 TABLET(S) PO NEEDED TAKE 1 TABLET BY MOUTH EVERY 8 HOURS NEEDED 201507/22/2015 Inactive early fill- pt lost med Zofran 4 mg tablet RxNorm: 545735 1 TABLET(S) PRN TAKE 1 TABLET BY MOUTH EVERY 4 TO 6 HOURS NEEDED 05/25/20152015 Inactive Zofran 4 mg tablet RxNorm: 596904 1 Tablet(s) PRN TAKE 1 TABLET BY MOUTH EVERY 4 TO 6 HOURS NEEDED 05/19/20152015 Inactive gabapentin 600 mg tablet RxNorm: 677729 1.5 TABLET(S) PO TID 07/05/2015 Inactive Lasix 20 mg tablet RxNorm: 802313 TAKE 2 TABLETS BY MOUTH EVERY MORNING AND 1 TABLET BY MOUTH AT 3PM 05/07/20152015 Inactive Effexor XR 37.5 mg capsule,extended release RxNorm: 300715 Capsule(s) CAPSULE(S) PO TAKE 2 CAPSULES BY MOUTH EVERY MORNING AND 1 CAPSULE BY MOUTH EVERY NIGHT AT BEDTIME 04/15/2015 08/26/2015 Inactive Diflucan 150 mg tablet RxNorm: 563256 1 Tablet(s) PO daily 04/18/2015 Inactive Victoza 3-Babak 0.6 mg/0.1 mL (18 mg/3 mL) subcutaneous pen injector RxNorm: 778942 1.8 Milligram(s) SQ daily 04/14/201508/10 Inactive Levaquin 500 mg tablet RxNorm: 563751 1 Tablet(s) PO daily 04/20/2015 Inactive potassium chloride ER 10 mEq tablet,extended release RxNorm: 793703 1 TABLET(S) PO QDAY PRN TAKE WITH LASIX 04/13/201504/2016 Inactive Effexor XR 37.5 mg capsule,extended release RxNorm: 882078 CAPSULE(S) PO TAKE 2 CAPSULES BY MOUTH EVERY MORNING AND 1 CAPSULE BY MOUTH EVERY NIGHT AT BEDTIME 04/10/2015 04/14/2015 Inactive pantoprazole 40 mg tablet,delayed release RxNorm: 824628 1 Tablet(s) PO daily 03/31/2015 08/31/2015 Inactive Dexilant 60 mg capsule, delayed release RxNorm: 357610 1 Capsule(s) PO daily 03/31/2015 03/31/2015 Inactive pantoprazole 40 mg tablet,delayed release RxNorm: 564748 1 Tablet(s) PO daily 03/31/2015 03/30/2015 Inactive Dexilant 60 mg capsule, delayed release RxNorm: 540257 1 Capsule(s) PO daily 03/31/2015 05/29/2015 Inactive Dexilant 60 mg capsule, delayed release RxNorm: 633034 1 Capsule(s) PO daily 03/30/2015 03/30/2015 Inactive hydrocodone 7.5 mg-acetaminophen 325 mg tablet RxNorm: 776051 1 Tablet(s) PO q 6 hours prn for pain 03/30/2015 04/28/2015 Inactive cyclobenzaprine 10 mg tablet RxNorm: 126767 TABLET(S) TABLET(S) 1 TABLET(S) PO NEEDED TAKE 1 TABLET BY MOUTH EVERY 8 HOURS NEEDED 201405/31/2015 Inactive early fill- pt lost med Xanax 0.5 mg tablet RxNorm: 206358 Tablet(s) TAKE 1 TABLET BY MOUTH THREE TIMES DAILY 03/25/2015 04/23/2015 Inactive Lasix 20 mg tablet RxNorm: 691830 TAKE 2 TABLETS BY MOUTH EVERY MORNING AND 1 TABLET BY MOUTH AT 3PM 03/23/20152014 Inactive Levemir Flexpen 100 unit/mL (3 mL) solution subcutaneous insulin pen RxNorm: 531544 15 Unit(s) SQ BID 03/20/20152015 Inactive give quanity sufficient for 1 month- Dexilant 60 mg capsule, delayed release RxNorm: 374404 1 Capsule(s) PO daily 03/19/2015 03/29/2015 Inactive Dexilant 60 mg capsule, delayed release RxNorm: 751860 1 Capsule(s) PO daily 03/19/2015 03/18/2015 Inactive Diflucan 150 mg tablet RxNorm: 208132 1 Tablet(s) PO every other day x7 doses 03/19/2015 03/21/2015 Inactive hydrocodone 7.5 mg-acetaminophen 325 mg tablet RxNorm: 609097 1 Tablet(s) PO q 6 hours prn for pain 02/27/2015 03/28/2015 Inactive Lasix 20 mg tablet RxNorm: 688596 TAKE 2 TABLETS BY MOUTH EVERY MORNING AND 1 TABLET BY MOUTH AT 3PM 02/27/20152014 Inactive omeprazole 20 mg capsule,delayed release RxNorm: 800276 1 CAPSULE(S) PO DAILY TAKE 1 CAPSULE BY MOUTH TWICE DAILY 02/26/2015 10/26/2017 Inactive Zofran 4 mg tablet RxNorm: 981940 1 Tablet(s) PRN TAKE 1 TABLET BY MOUTH EVERY 4 TO 6 HOURS NEEDED 02/24/20152014 Inactive fluconazole 150 mg tablet RxNorm: 640872 1 Tablet(s) PO every other day x 5 doses 02/19/2015 02/28/2015 Inactive cyclobenzaprine 10 mg tablet RxNorm: 180980 TABLET(S) TABLET(S) 1 TABLET(S) PO NEEDED TAKE 1 TABLET BY MOUTH EVERY 8 HOURS NEEDED 201403/29/2015 Inactive early fill- pt lost med hydrocodone 7.5 mg-acetaminophen 325 mg tablet RxNorm: 827854 1 Tablet(s) PO q 6 hours prn for pain 01/29/2015 02/26/2015 Inactive Xanax 0.5 mg tablet RxNorm: 104565 Tablet(s) TAKE 1 TABLET BY MOUTH THREE TIMES DAILY 01/29/2015 02/27/2015 Inactive Bactroban 2 % topical ointment RxNorm: 147275 1 APPLICATION TOP BID 01/26/2015 10/26/2015 Inactive Bactroban 2 % topical ointment RxNorm: 311428 1 Application TOP BID 01/15/2015 01/25/2015 Inactive doxycycline hyclate 100 mg tablet RxNorm: 502993 1 Tablet(s) PO BID 01/15/2015 01/21/2015 Inactive nystatin 100,000 unit/mL oral suspension RxNorm: 881809 5 Milliliter(s) PO QID 01/15/2015 01/24/2015 Inactive Cartia XT 180 mg capsule,extended release RxNorm: 067046 1 CAPSULE(S) PO DAILY TAKE 1 CAPSULE BY MOUTH AT BEDTIME ..TAKE THIS IN ADDITION TO 240 MG IN THE MORNING 01/13/2015 07/13/2015 Inactive Lasix 20 mg tablet RxNorm: 600703 TAKE 2 TABLETS BY MOUTH EVERY MORNING AND 1 TABLET BY MOUTH AT 3PM 01/08/20152014 Inactive fluconazole 150 mg tablet RxNorm: 039682 1 Tablet(s) PO daily 01/01/2015 01/05/2015 Inactive hydrocodone 7.5 mg-acetaminophen 325 mg tablet RxNorm: 483185 1 Tablet(s) PO q 6 hours prn for pain 01/01/2015 01/28/2015 Inactive colestipol 1 gram tablet RxNorm: 0136482 1 TABLET(S) PO BID TAKE 1 TABLET BY MOUTH TWICE DAILY 12/18/2014 06/15/2015 Inactive colestipol 1 gram tablet RxNorm: 5955800 1 TABLET(S) PO BID TAKE 1 TABLET BY MOUTH TWICE DAILY 12/18/2014 09/13/2015 Inactive Lasix 20 mg tablet RxNorm: 356122 TAKE 2 TABLETS BY MOUTH EVERY MORNING AND 2 TABLETS AND AT 3PM 12/11/2014 12/25/2014 Inactive cyclobenzaprine 10 mg tablet RxNorm: 215187 TABLET(S) 1 TABLET(S) PO NEEDED TAKE 1 TABLET BY MOUTH EVERY 8 HOURS NEEDED 12/11/2014 05/31/2017 Inactive Lasix 20 mg tablet RxNorm: 397770 Tablet(s) TABLET(S) PO TAKE 2 TABLETS BY MOUTH EVERY MORNING AND 1 TABLET BY MOUTH AT 3 PM 12/10/2014 12/10/2014 Inactive fill early- pt lost them cyclobenzaprine 10 mg tablet RxNorm: 764538 Tablet(s) TABLET(S) 1 TABLET(S) PO NEEDED TAKE 1 TABLET BY MOUTH EVERY 8 HOURS NEEDED 201402/15/2015 Inactive early fill- pt lost med cyclobenzaprine 10 mg tablet RxNorm: 472450 TABLET(S) 1 TABLET(S) PO NEEDED TAKE 1 TABLET BY MOUTH EVERY 8 HOURS NEEDED 12/02/2014 12/09/2014 Inactive hydrocodone 7.5 mg-acetaminophen 325 mg tablet RxNorm: 385252 1 Tablet(s) PO q 6 hours prn for pain 12/01/2014 12/30/2014 Inactive diltiazem ER (XR/XT) 240 mg capsule,extended release, controlled RxNorm: 700563 TAKE 1 CAPSULE BY MOUTH DAILY 11/30/2014 07/13/2015 Inactive Xanax 0.5 mg tablet RxNorm: 910812 1 Tablet(s) PO TID PRN as needed 11/19/2014 11/19/2014 Inactive (Appended: Controlled substance eRx refill - RxReferenceNumber: [id number]|1|0|1) Xanax 0.5 mg tablet RxNorm: 379276 TAKE 1 TABLET BY MOUTH THREE TIMES DAILY 11/19/2014 12/18/2014 Inactive Toprol XL 100 mg tablet,extended release RxNorm: 000816 TAKE 1 TABLET BY MOUTH TWICE DAILY 11/06/2014 07/15/2015 Inactive Diflucan 150 mg tablet RxNorm: 866692 1 Tablet(s) PO every other day x7 doses 11/05/2014 11/07/2014 Inactive omeprazole 20 mg capsule,delayed release RxNorm: 337266 1 Capsule(s) PO daily TAKE 1 CAPSULE BY MOUTH TWICE DAILY 11/04/2014 02/01/2015 Inactive cyclobenzaprine 10 mg tablet RxNorm: 004751 TABLET(S) 1 TABLET(S) PO NEEDED TAKE 1 TABLET BY MOUTH EVERY 8 HOURS NEEDED 10/28/2014 12/01/2014 Inactive hydrocodone 7.5 mg-acetaminophen 325 mg tablet RxNorm: 571544 1 Tablet(s) PO q 6 hours prn for pain 10/21/2014 11/19/2014 Inactive gabapentin 600 mg tablet RxNorm: 483107 1.5 Tablet(s) PO TID 04/30/2015 Inactive Xanax 0.5 mg tablet RxNorm: 606159 Tablet(s) TAKE 1 TABLET BY MOUTH THREE TIMES DAILY 10/01/2014 10/30/2014 Inactive (Response to an electronic controlled substance refill request - RxReferenceNumber: [id number]|1|0|1) Xanax 0.25 mg tablet RxNorm: 467672 1 Tablet(s) PO Q8 PRN as needed 09/30/2014 09/30/2014 Inactive Lasix 20 mg tablet RxNorm: 432531 Tablet(s) TAKE 2 TABLETS BY MOUTH EVERY MORNING AND 2 TABLETS BY MOUTH AT 3 PM 09/30/2014 11/12/2014 Inactive Victoza 3-Babak 0.6 mg/0.1 mL (18 mg/3 mL) subcutaneous pen injector RxNorm: 554200 1.2 MILLIGRAM(S) SQ DAILY 0.6 X 2 WEEKS THEN INCREASE TO 1.2MG DAILY 09/26/2014 04/13/2015 Inactive Xanax 0.5 mg tablet RxNorm: 889914 TAKE 1 TABLET BY MOUTH THREE TIMES DAILY 09/25/2014 09/30/2014 Inactive (Response to an electronic controlled substance refill request [id number]|1|0|1) Zofran 4 mg tablet RxNorm: 112709 TAKE 1 TABLET BY MOUTH EVERY 4 TO 6 HOURS NEEDED 09/25/2014 09/27/2014 Inactive hydrocodone 7.5 mg-acetaminophen 325 mg tablet RxNorm: 947897 1 Tablet(s) PO q 6 hours prn for pain 09/19/2014 10/18/2014 Inactive cyclobenzaprine 10 mg tablet RxNorm: 861635 TABLET(S) 1 TABLET(S) PO NEEDED TAKE 1 TABLET BY MOUTH EVERY 8 HOURS NEEDED 09/15/2014 10/27/2014 Inactive Lasix 20 mg tablet RxNorm: 898692 Tablet(s) TAKE 2 TABLETS BY MOUTH EVERY MORNING AND 2 TABLETS BY MOUTH AT 3 PM 09/08/2014 09/29/2014 Inactive Lasix 20 mg tablet RxNorm: 465143 TAKE 2 TABLETS BY MOUTH EVERY MORNING AND 2 TABLETS BY MOUTH AT 3 PM 08/21/20142014 Inactive hydrocodone 7.5 mg-acetaminophen 325 mg tablet RxNorm: 622291 1 Tablet(s) PO q 6 hours prn for pain 08/21/2014 09/18/2014 Inactive Diflucan 150 mg tablet RxNorm: 011478 1 Tablet(s) PO every other day 08/15/2014 08/17/2014 Inactive cyclobenzaprine 10 mg tablet RxNorm: 980638 Tablet(s) 1 TABLET(S) PO NEEDED TAKE 1 TABLET BY MOUTH EVERY 8 HOURS NEEDED 08/12/2014 09/14/2014 Inactive Zofran 4 mg tablet RxNorm: 116553 TAKE 1 TABLET BY MOUTH EVERY 4 TO 6 HOURS NEEDED 07/31/2014 08/02/2014 Inactive Effexor XR 37.5 mg capsule,extended release RxNorm: 569212 CAPSULE(S) PO TAKE 2 CAPSULES BY MOUTH EVERY MORNING AND 1 CAPSULE BY MOUTH EVERY NIGHT AT BEDTIME 07/28/2014 02/15/2016 Inactive Lasix 20 mg tablet RxNorm: 821355 TAKE 2 TABLETS BY MOUTH EVERY MORNING AND 2 TABLETS BY MOUTH AT 3 PM 07/22/20142014 Inactive Diflucan 150 mg tablet RxNorm: 887248 1 Tablet(s) PO daily 06/201407/23/2014 Inactive hydrocodone 7.5 mg-acetaminophen 325 mg tablet RxNorm: 521856 1 Tablet(s) PO q 6 hours prn for pain 07/14/2014 08/12/2014 Inactive Synthroid 88 mcg tablet RxNorm: 862040 1 TABLET(S) PO DAILY 10/11/2014 Inactive Effexor XR 37.5 mg capsule,extended release RxNorm: 334153 Capsule(s) PO TAKE 2 CAPSULES BY MOUTH EVERY MORNING AND 1 CAPSULE BY MOUTH EVERY NIGHT AT BEDTIME 07/07/2014 04/09/2015 Inactive Effexor XR 37.5 mg capsule,extended release RxNorm: 633777 TAKE 2 CAPSULES BY MOUTH EVERY MORNING AND 1 CAPSULE BY MOUTH EVERY NIGHT AT BEDTIME 07/07/2014 01/02/2015 Inactive WelChol 625 mg tablet RxNorm: 808352 3 TABLET(S) PO BID 201410/04/2014 Inactive WelChol 625 mg tablet RxNorm: 390194 3 Tablet(s) PO BID 201402/01/2015 Inactive Zofran 4 mg tablet RxNorm: 770407 TAKE 1 TABLET BY MOUTH EVERY 4 TO 6 HOURS NEEDED 07/03/2014 07/05/2014 Inactive Lasix 20 mg tablet RxNorm: 226399 TAKE 2 TABLETS BY MOUTH EVERY MORNING AND 2 TABLETS BY MOUTH AT 3 PM 06/26/20142014 Inactive Diflucan 150 mg tablet RxNorm: 090115 1 Tablet(s) PO daily 06/19/2014 Inactive Promethazine VC 6.25 mg-5 mg/5 mL syrup RxNorm: 9180820 1-2 Teaspoon(s) PO Q6 PRN as needed 06/12/2014 07/21/2015 Inactive hydrocodone 7.5 mg-acetaminophen 325 mg tablet RxNorm: 826949 1 Tablet(s) PO q 6 hours prn for pain 06/03/2014 07/02/2014 Inactive Levaquin 500 mg tablet RxNorm: 587551 1 Tablet(s) PO daily 01/201506/05/2014 Inactive cyclobenzaprine 10 mg tablet RxNorm: 625214 Tablet(s) 1 TABLET(S) PO NEEDED TAKE 1 TABLET BY MOUTH EVERY 8 HOURS NEEDED 05/26/2014 No Stop Date Active cyclobenzaprine 10 mg tablet RxNorm: 514071 1 TABLET(S) PO NEEDED TAKE 1 TABLET BY MOUTH EVERY 8 HOURS NEEDED 05/26/2014 08/11/2014 Inactive Lasix 20 mg tablet RxNorm: 560310 Tablet(s) TABLET(S) PO TAKE 2 TABLETS BY MOUTH EVERY MORNING AND 2 TABLET BY MOUTH AT 3 PM 05/12/2014 06/25/2014 Inactive Combivent Respimat 20 mcg-100 mcg/actuation solution for inhalation RxNorm: 0212886 INHALE 1 PUFF BY MOUTH FOUR TIMES DAILY 05/12/2014 11/07/2014 Inactive fluconazole 150 mg tablet RxNorm: 792513 1 Tablet(s) PO UD 05/12/2014 Inactive 1 tab every other day x 5 doses Activella 0.5 mg-0.1 mg tablet RxNorm: 1537346 1 TABLET(S) PO DAILY TAKE 1 TABLET BY MOUTH DAILY FOR MENOPAUSAL SYMPTOM 05/02/2014 09/21/2015 Inactive hydrocodone 7.5 mg-acetaminophen 300 mg tablet RxNorm: 612761 Tablet(s) PO TAKE 1 TABLET BY MOUTH EVERY 6 HOURS NEEDED FOR PAIN 04/21/2014 06/03/2014 Inactive ( Appended: Controlled substance eRx refill - RxReferenceNumber: [id number]|1|0|1 ) Levaquin 500 mg tablet RxNorm: 915312 1 Tablet(s) PO daily 04/21/2014 Inactive Diflucan 150 mg tablet RxNorm: 956713 1 Tablet(s) PO every other day x 4 doses 04/10/2014 06/16/2014 Inactive Lasix 20 mg tablet RxNorm: 036493 TAKE 2 TABLETS BY MOUTH EVERY MORNING AND 1 TABLET BY MOUTH AT 3 PM 04/10/20142013 Inactive potassium chloride ER 10 mEq tablet,extended release RxNorm: 653284 1 TABLET(S) PO QDAY PRN TAKE WITH LASIX 04/09/2014 Inactive Levaquin 250 mg tablet RxNorm: 615419 1 Tablet(s) PO daily 08/201304/07/2014 Inactive 2 tabs today then 1 tab daily until gone atorvastatin 40 mg tablet RxNorm: 770476 1 Tablet(s) daily 1 TABLET(S) PO DAILY 03/25/2014 04/10/2016 Inactive TAKE 1 TABLET BY MOUTH DAILY (THIS IS AN INCREASE IN DOSAGE) Zofran 4 mg tablet RxNorm: 334760 1 Tablet(s) PO Q4-6H 201307/02/2014 Inactive Xanax 0.5 mg tablet RxNorm: 459468 TAKE 1 TABLET BY MOUTH THREE TIMES DAILY NEEDED 03/19/2014 04/17/2014 Inactive (Response to an electronic controlled substance refill request - RxReferenceNumber: [id number]|1|0|1) hydrocodone 7.5 mg-acetaminophen 300 mg tablet RxNorm: 881870 Tablet(s) PO TAKE 1 TABLET BY MOUTH EVERY 6 HOURS NEEDED FOR PAIN 03/19/2014 04/20/2014 Inactive ( Appended: Controlled substance eRx refill - RxReferenceNumber: [id number]|1|0|1 ) atorvastatin 40 mg tablet RxNorm: 593857 1 TABLET(S) PO DAILY 03/10/2014 03/24/2014 Inactive TAKE 1 TABLET BY MOUTH DAILY (THIS IS AN INCREASE IN DOSAGE) WelChol 625 mg tablet RxNorm: 916206 3 Tablet(s) PO BID 201303/06/2014 Inactive WelChol 625 mg tablet RxNorm: 336403 3 Tablet(s) PO BID 201307/04/2014 Inactive Lasix 20 mg tablet RxNorm: 570840 Tablet(s) TABLET(S) PO TAKE 2 TABLETS BY MOUTH EVERY MORNING AND 2 TABLET BY MOUTH AT 3 PM 03/03/2014 05/11/2014 Inactive Lasix 20 mg tablet RxNorm: 197867 TABLET(S) PO TAKE 2 TABLETS BY MOUTH EVERY MORNING AND 1 TABLET BY MOUTH AT 3 PM 02/20/2014 03/02/2014 Inactive gabapentin 600 mg tablet RxNorm: 089123 1.5 Tablet(s) PO TID 09/16/2014 Inactive Synthroid 88 mcg tablet RxNorm: 119924 1 TABLET(S) PO DAILY 05/18/2014 Inactive cyclobenzaprine 10 mg tablet RxNorm: 540232 1 TABLET(S) PO NEEDED TAKE 1 TABLET BY MOUTH EVERY 8 HOURS NEEDED 02/18/2014 05/25/2014 Inactive doxycycline hyclate 100 mg tablet RxNorm: 904597 1 Tablet(s) PO BID 02/13/2014 02/22/2014 Inactive Bactroban 2 % topical ointment RxNorm: 857402 1 Application TOP BID 02/13/2014 03/12/2014 Inactive Victoza 3-Babak 0.6 mg/0.1 mL (18 mg/3 mL) subcutaneous pen injector RxNorm: 262235 1.2 MILLIGRAM(S) SQ DAILY 0.6 X 2 WEEKS THEN INCREASE TO 1.2MG DAILY 02/10/2014 05/10/2014 Inactive albuterol sulfate 1.25 mg/3 mL solution for nebulization RxNorm: 581496 3 MILLILITER(S) INH TID 02/07/20142014 Inactive 1 box Victoza 3-Babak 0.6 mg/0.1 mL (18 mg/3 mL) subcutaneous pen injector RxNorm: 250724 1.8 Milligram(s) SQ daily 0.6 x 2 weeks then increase to 1.2mg daily 01/27/2014 05/26/2014 Inactive Levemir Flexpen 100 unit/mL (3 mL) solution subcutaneous insulin pen RxNorm: 320168 5units sq at hs, increase by 3 Unit(s) SQ at hs every 3days, goal FSBS 170 or less, do not increase above 20units, call doctor with report 01/27/2014 05/26/2014 Inactive hydrocodone 7.5 mg-acetaminophen 300 mg tablet RxNorm: 203013 Tablet(s) PO TAKE 1 TABLET BY MOUTH EVERY 6 HOURS NEEDED FOR PAIN 01/24/2014 03/18/2014 Inactive ( Appended: Controlled substance eRx refill - RxReferenceNumber: [id number]|1|0|1 ) Xanax 0.5 mg tablet RxNorm: 279057 1 Tablet(s) PO TID PRN as needed 01/24/2014 09/21/2014 Inactive (Appended: Controlled substance eRx refill - RxReferenceNumber: [id number]|1|0|1) Xanax 0.5 mg tablet RxNorm: 732353 TAKE 1 TABLET BY MOUTH THREE TIMES DAILY NEEDED 01/23/2014 02/21/2014 Inactive (Response to an electronic controlled substance refill request - RxReferenceNumber: [id number]|1|0|1) hydrocodone 5 mg-acetaminophen 325 mg tablet RxNorm: 676113 TAKE 1 TABLET BY MOUTH EVERY 6 HOURS NEEDED FOR PAIN 01/21/2014 02/19/2014 Inactive (Response to an electronic controlled substance refill request - RxReferenceNumber: [id number]| [id number]|1|0|1) Lasix 20 mg tablet RxNorm: 980746 TAKE 2 TABLETS BY MOUTH EVERY MORNING AND 1 TABLET BY MOUTH AT 3 PM 01/17/20142013 Inactive cyclobenzaprine 10 mg tablet RxNorm: 844871 1 Tablet(s) PO as needed TAKE 1 TABLET BY MOUTH EVERY 8 HOURS NEEDED 01/13/2014 02/17/2014 Inactive Anusol-HC 25 mg suppository RxNorm: 7014180 1 SUPPOSITORY RTL PRN ONE PER RECTUM NEEDED, UP TO TWICE DAILY FOR HEMORRHOID, NO MORE THAN 7 DAYS IN A ROW 01/10/2014 02/06/2014 Inactive Activella 0.5 mg-0.1 mg tablet RxNorm: 8979331 1 Tablet(s) PO daily TAKE 1 TABLET BY MOUTH DAILY FOR MENOPAUSAL SYMPTOM 01/08/2014 05/01/2014 Inactive gabapentin 600 mg tablet RxNorm: 270083 1.5 Tablet(s) PO TID 02/18/2014 Inactive gabapentin 600 mg tablet RxNorm: 753960 1.5 Tablet(s) PO TID 01/01/2014 Inactive hydrocodone 7.5 mg-acetaminophen 300 mg tablet RxNorm: 702069 Tablet(s) PO TAKE 1 TABLET BY MOUTH EVERY 6 HOURS NEEDED FOR PAIN 12/12/2013 01/23/2014 Inactive ( Appended: Controlled substance eRx refill - RxReferenceNumber: [id number]|1|0|1 ) Levaquin 250 mg tablet RxNorm: 866683 1 Tablet(s) PO daily 12/18/2013 Inactive 2 tabs today then 1 tab daily until gone Diflucan 150 mg tablet RxNorm: 020800 1 Tablet(s) PO daily 12/16/2013 Inactive do not stat until levaquin is completed Cartia XT 180 mg capsule,extended release RxNorm: 820602 1 CAPSULE(S) PO DAILY TAKE 1 CAPSULE BY MOUTH AT BEDTIME ..TAKE THIS IN ADDITION TO 240 MG IN THE MORNING 12/12/2013 12/06/2014 Inactive diltiazem ER (XR/XT) 240 mg capsule,extended release, controlled RxNorm: 570203 1 Capsule(s) PO daily TAKE 1 CAPSULE BY MOUTH EVERY DAY 11/28/2014 Inactive Effexor XR 37.5 mg capsule,extended release RxNorm: 337391 Capsule(s) PO TAKE 2 CAPSULES BY MOUTH EVERY MORNING AND 1 CAPSULE BY MOUTH EVERY NIGHT AT BEDTIME 12/04/2013 07/06/2014 Inactive Lasix 20 mg tablet RxNorm: TABLET(S) PO TAKE 2 TABLETS BY MOUTH EVERY MORNING AND 1 TABLET BY MOUTH AT 3 PM 12/04/2013 12/09/2014 Inactive Voltaren 1 % topical gel RxNorm: 005788 4 Gram(s) TOP QID 11/2703/26/2014 Inactive Cartia XT 180 mg capsule,extended release RxNorm: 567119 1 Capsule(s) PO daily TAKE 1 CAPSULE BY MOUTH AT BEDTIME ..TAKE THIS IN ADDITION TO 240 MG IN THE MORNING 11/27/2013 01/12/2015 Inactive Lasix 20 mg tablet RxNorm: TABLET(S) PO TAKE 2 TABLETS BY MOUTH EVERY MORNING AND 1 TABLET BY MOUTH AT 3 PM 11/26/2013 02/19/2014 Inactive colestipol 1 gram tablet RxNorm: 3412735 1 Tablet(s) PO BID TAKE 1 TABLET BY MOUTH TWICE DAILY 11/26/2013 11/20/2014 Inactive cyclobenzaprine 10 mg tablet RxNorm: 193098 Tablet(s) PO TAKE 1 TABLET BY MOUTH EVERY 8 HOURS NEEDED 11/21/20132013 Inactive Diflucan 150 mg tablet RxNorm: 396081 1 Tablet(s) PO daily TAKE 1 TABLET BY MOUTH EVERY OTHER DAY FOR 8 DOSES 11/14/201306/2013 Inactive peak flow meter-inh assist dev kit RxNorm: 1 dose Miscellaneous PRN 11/14/2013 10/27/2017 Inactive Effexor XR 37.5 mg capsule,extended release RxNorm: 461741 Capsule(s) PO TAKE 2 CAPSULES BY MOUTH EVERY MORNING AND 1 CAPSULE BY MOUTH EVERY NIGHT AT BEDTIME 11/04/2013 12/03/2013 Inactive Anusol-HC 25 mg suppository RxNorm: 3293983 1 Suppository RTL PRN one per rectum as needed, up to twice daily for hemorrhoid, no more than 7 days in a row 10/23/2013 10/22/2013 Inactive Anusol-HC 25 mg suppository RxNorm: 8000474 1 Suppository RTL PRN one per rectum as needed, up to twice daily for hemorrhoid, no more than 7 days in a row 10/23/2013 01/09/2014 Inactive Activella 0.5 mg-0.1 mg tablet RxNorm: 3475323 Tablet(s) PO TAKE 1 TABLET BY MOUTH DAILY FOR MENOPAUSAL SYMPTOM 10/21/2013 01/07/2014 Inactive cyclobenzaprine 10 mg tablet RxNorm: 937844 Tablet(s) PO TAKE 1 TABLET BY MOUTH EVERY 8 HOURS NEEDED 10/21/20132013 Inactive Lasix 20 mg tablet RxNorm: 137522 Tablet(s) PO TAKE 2 TABLETS BY MOUTH EVERY MORNING AND 1 TABLET BY MOUTH AT 3 PM 10/17/2013 02/25/2016 Inactive Bactroban 2 % topical ointment RxNorm: 304519 1 Application TOP BID 10/10/2013 11/06/2013 Inactive Zofran 4 mg tablet RxNorm: 778992 1 Tablet(s) PO Q4-6H 201303/20/2014 Inactive Bactroban 2 % topical ointment RxNorm: 864990 1 Application TOP BID 09/27/2013 10/09/2013 Inactive hydrocodone 5 mg-acetaminophen 325 mg tablet RxNorm: 774380 Tablet(s) PO TAKE 1 TABLET BY MOUTH EVERY 6 HOURS NEEDED FOR PAIN 09/26/2013 12/11/2013 Inactive ( Appended: Controlled substance eRx refill - RxReferenceNumber: [id number]|1|0|1 ) hydrocodone 5 mg-acetaminophen 325 mg tablet RxNorm: 210502 1 Tablet(s) PO Q6 PRN 09/26/2013 01/24/2014 Inactive cyclobenzaprine 10 mg tablet RxNorm: 193906 Tablet(s) PO TAKE 1 TABLET BY MOUTH EVERY 8 HOURS NEEDED 09/16/2013 No Stop Date Active omeprazole 20 mg capsule,delayed release RxNorm: 752451 Capsule(s) PO TAKE 1 CAPSULE BY MOUTH TWICE DAILY 09/02/2013 Inactive Lasix 20 mg tablet RxNorm: 936448 Tablet(s) PO TAKE 2 TABLETS BY MOUTH EVERY MORNING AND 1 TABLET BY MOUTH AT 3 PM 09/02/2013 04/10/2016 Inactive Diflucan 150 mg tablet RxNorm: 839244 Tablet(s) PO TAKE 1 TABLET BY MOUTH EVERY OTHER DAY FOR 8 DOSES 08/29/20132013 Inactive Effexor XR 37.5 mg capsule,extended release RxNorm: 466680 Capsule(s) PO TAKE 2 CAPSULES BY MOUTH EVERY MORNING AND 1 CAPSULE BY MOUTH EVERY NIGHT AT BEDTIME 08/29/2013 11/03/2013 Inactive diltiazem ER (XR/XT) 240 mg capsule,extended release, controlled RxNorm: 411403 Capsule(s) PO TAKE 1 CAPSULE BY MOUTH EVERY DAY 201312/03/2013 Inactive Xanax 0.5 mg tablet RxNorm: 566710 1 Tablet(s) PO TID PRN 11/2013 No Stop Date Active (Appended: Controlled substance eRx refill - RxReferenceNumber: [id number]| [id number]|1|0|1) colestipol 1 gram tablet RxNorm: 2136828 Tablet(s) PO TAKE 1 TABLET BY MOUTH TWICE DAILY 08/26/2013 11/25/2013 Inactive Victoza 3-Babak 0.6 mg/0.1 mL (18 mg/3 mL) subcutaneous pen injector RxNorm: 795624 1.2 Milligram(s) SQ daily 0.6 x 2 weeks then increase to 1.2mg daily 08/19/2013 12/16/2013 Inactive Synthroid 88 mcg tablet RxNorm: 700895 1 Tablet(s) PO daily 12/09/2013 Inactive Lasix 20 mg tablet RxNorm: Tablet(s) PO TAKE 2 TABLETS BY MOUTH EVERY MORNING AND 2 TABLETS BY MOUTH AT 3 PM 08/12/2013 10/18/2016 Inactive Xanax 0.5 mg tablet RxNorm: 807323 1 Tablet(s) PO TID PRN No Stop Date Active (Appended: Controlled substance eRx refill - RxReferenceNumber: [id number]| [id number]|1|0|1) Lasix 20 mg tablet RxNorm: Tablet(s) PO TAKE 2 TABLETS BY MOUTH EVERY MORNING AND 1 TABLET BY MOUTH AT 3 PM 08/07/2013 08/11/2013 Inactive Voltaren 1 % topical gel RxNorm: 808470 4 Gram(s) TOP QID 08/0111/26/2013 Inactive Zyvox 600 mg tablet RxNorm: 007100 1 Tablet(s) PO BID 201307/27/2013 Inactive please call the office is this is too expensive for the pt Zyvox 600 mg tablet RxNorm: 595986 1 Tablet(s) PO BID 201307/17/2013 Inactive hydrocodone 5 mg-acetaminophen 325 mg tablet RxNorm: 9766781 1 Tablet(s) PO Q6 PRN 07/15/2013 09/26/2013 Inactive Zofran 4 mg tablet RxNorm: 854568 1 Tablet(s) PO Q4-6H 201310/02/2013 Inactive Lasix 20 mg tablet RxNorm: Tablet(s) PO TAKE 2 TABLETS BY MOUTH EVERY MORNING AND 1 TABLET BY MOUTH AT 3 PM 07/11/2013 10/18/2016 Inactive cyclobenzaprine 10 mg tablet RxNorm: 923630 1 Tablet(s) PO Q8 PRN 06/27/2013 08/25/2013 Inactive gabapentin 600 mg tablet RxNorm: 763740 1.5 Tablet(s) PO TID 01/02/2014 Inactive Lasix 20 mg tablet RxNorm: 817956 Tablet(s) PO TAKE 2 TABLETS BY MOUTH EVERY MORNING AND 1 TABLET BY MOUTH AT 3 PM 06/17/2013 07/10/2013 Inactive hydrocodone 5 mg-acetaminophen 325 mg tablet RxNorm: 629718 1 Tablet(s) PO Q6 PRN 06/10/2013 07/14/2013 Inactive hydrocortisone 2.5 % rectal cream RxNorm: 456611 1 Suppository RTL BID PRN 06/10/2013 06/29/2013 Inactive Flexeril 10 mg tablet RxNorm: 481649 1 Tablet(s) PO Q8 PRN 06/0406/26/2013 Inactive diltiazem ER (XR/XT) 240 mg capsule,extended release, controlled RxNorm: 065620 Capsule(s) PO TAKE 1 CAPSULE BY MOUTH EVERY DAY 201310/26/2017 Inactive omeprazole 20 mg capsule,delayed release RxNorm: 713063 Capsule(s) PO TAKE 1 CAPSULE BY MOUTH TWICE DAILY 05/24/2013 Inactive colestipol 1 gram tablet RxNorm: 8057187 Tablet(s) PO TAKE 1 TABLET BY MOUTH TWICE DAILY 05/23/2013 04/21/2016 Inactive Januvia 100 mg tablet RxNorm: 331086 1 Tablet(s) PO daily 201308/18/2013 Inactive Activella 0.5 mg-0.1 mg tablet RxNorm: 962914 Tablet(s) PO TAKE 1 TABLET BY MOUTH DAILY FOR MENOPAUSAL SYMPTOM 05/17/2013 Inactive Xanax 0.5 mg tablet RxNorm: 429063 1 Tablet(s) PO TID PRN 08/06/2013 Inactive (Appended: Controlled substance eRx refill - RxReferenceNumber: [id number]| 114199|1|0|1) Kenalog 40 mg/mL suspension for injection RxNorm: 8026717 Milliliter(s) Inj 05/07/2013 05/07/2013 Inactive levofloxacin 500 mg tablet RxNorm: 666668 1 Tablet(s) PO daily pt to take 500mg on day#1, 3, 5, 7 and 1/2 tablet on days 2, 4, 6, and 8 05/0705/14/2013 Inactive Lyrica 50 mg capsule RxNorm: 740385 1 Capsule(s) PO TID 201206/26/2013 Inactive hydrocodone 5 mg-acetaminophen 500 mg tablet RxNorm: 760880 1 Tablet(s) PO Q6 PRN 04/22/2013 06/09/2013 Inactive Zofran 4 mg tablet RxNorm: 311479 1 Tablet(s) PO Q4-6H 201207/14/2013 Inactive Zofran 4 mg tablet RxNorm: 571082 1 Tablet(s) PO Q6 PRN 04/0404/08/2013 Inactive hydrocodone 5 mg-acetaminophen 500 mg tablet RxNorm: 085918 1 Tablet(s) PO Q6 PRN 03/21/2013 04/21/2013 Inactive Diflucan 150 mg tablet RxNorm: 167521 1 Tablet(s) PO every other day 1 pill po every other day x 8 doses 03/19/201306/26 Inactive potassium chloride ER 10 mEq tablet,extended release RxNorm: 385050 1 Tablet(s) PO QDAY PRN take with lasix 03/07/201302/2014 Inactive potassium chloride ER 10 mEq tablet,extended release RxNorm: 396222 1 Tablet(s) PO QDAY PRN take with lasix 03/04/2013 Inactive fluconazole 150 mg tablet RxNorm: 012061 1 Tablet(s) PO daily 03/01/2013 02/28/2013 Inactive fluconazole 150 mg tablet RxNorm: 748647 1 Tablet(s) PO daily 03/01/2013 03/05/2013 Inactive Combivent 18 mcg-103 mcg/actuation Aerosol Inhaler RxNorm: 530788 2 Puff(s) INH QID 02/12/2013 02/12/2013 Inactive Zofran 4 mg tablet RxNorm: 837598 1 Tablet(s) PO Q6 PRN 02/1104/03/2013 Inactive Lasix 20 mg tablet RxNorm: 886327 1 Tablet(s) PO BID one pill in morning and one pill in afternoon (3pm) 02/04/2013 Inactive Xopenex HFA 45 mcg/actuation Aerosol Inhaler RxNorm: 117030 2 INH QID 01/29/2013 09/21/2015 Inactive Effexor XR 37.5 mg capsule,extended release RxNorm: 384347 2 q am and 1 at hs Capsule(s) PO TAKE 2 CAPSULES BY MOUTH EVERY MORNING AND 1 CAPSULE EVERY NIGHT AT BEDTIME 01/29/2013 02/15/2016 Inactive fluconazole 150 mg tablet RxNorm: 728269 1 Tablet(s) PO daily 01/29/2013 02/02/2013 Inactive hydrocodone 5 mg-acetaminophen 500 mg tablet RxNorm: 138573 1 Tablet(s) PO Q6 PRN 01/29/2013 03/20/2013 Inactive Effexor XR 37.5 mg capsule,extended release RxNorm: 644998 Capsule(s) PO 01/29/2013 08/28/2013 Inactive TAKE 2 CAPSULES BY MOUTH EVERY MORNING AND 1 CAPSULE EVERY NIGHT AT BEDTIME doxycycline hyclate 100 mg tablet RxNorm: 187003 1 Tablet(s) PO BID 01/01/2013 01/10/2013 Inactive doxycycline hyclate 100 mg tablet RxNorm: 870196 1 Tablet(s) PO BID 01/01/2013 12/31/2012 Inactive Synthroid 75 mcg tablet RxNorm: 276691 1 Tablet(s) PO daily 06/29/2013 Inactive Synthroid 75 mcg tablet RxNorm: 878842 1 Tablet(s) PO daily 12/31/2012 Inactive Xanax 0.5 mg tablet RxNorm: 743383 Tablet(s) PO TAKE 1/2 TO 1 TABLET BY MOUTH EVERY 8 HOURS NEEDED FOR ANXIETY 12/27/2012 05/06/2013 Inactive (Appended: Controlled substance eRx refill - RxReferenceNumber: [id number]|1|0|1) Lasix 20 mg tablet RxNorm: 786841 1 Tablet(s) PO daily 201202/03/2013 Inactive Santyl 250 unit/gram Topical Ointment RxNorm: 0216816 1 Application TOP daily 12/20/2012 12/29/2012 Inactive Levaquin 500 mg tablet RxNorm: 063909 1 Tablet(s) PO daily 05/201212/26/2012 Inactive acyclovir 400 mg tablet RxNorm: 987820 1 Tablet(s) PO TID 12/0312/09/2012 Inactive acyclovir 400 mg tablet RxNorm: 167815 1 Tablet(s) PO TID 12/0312/02/2012 Inactive fluconazole 150 mg tablet RxNorm: 033037 1 Tablet(s) PO daily 11/26/2012 11/30/2012 Inactive Effexor XR 37.5 mg capsule,extended release RxNorm: 704499 Capsule(s) PO TAKE 2 CAPSULES BY MOUTH EVERY MORNING AND 1 CAPSULE EVERY NIGHT AT BEDTIME 11/14/2012 01/28/2013 Inactive albuterol sulfate 1.25 mg/3 mL solution for nebulization RxNorm: 141445 3 Milliliter(s) INH TID 10/29/20122012 Inactive 1 box Cartia XT 180 mg capsule,extended release RxNorm: 223943 1 Capsule(s) PO daily TAKE 1 CAPSULE BY MOUTH AT BEDTIME ..TAKE THIS IN ADDITION TO 240 MG IN THE MORNING 10/29/2012 11/26/2013 Inactive acyclovir 800 mg tablet RxNorm: 325689 1 Tablet(s) PO BID 10/2911/04/2012 Inactive Diflucan 150 mg tablet RxNorm: 520084 1 Tablet(s) PO daily 10/14/2012 Inactive TAKE 1 TABLET BY MOUTH EVERY DAY Toprol XL 100 mg tablet,extended release RxNorm: 713828 1 Tablet(s) PO BID 10/11/2012 09/05/2013 Inactive Zithromax Z-Babak 250 mg tablet RxNorm: 603515 Tablet(s) PO UD as directed. 1 refill , please take back to back 10/05/2012 No Stop Date Active Kenalog 40 mg/mL Susp for Injection RxNorm: 8284203 1 Milliliter(s) Inj QID 09/21/2012 05/07/2013 Inactive fluconazole 150 mg tablet RxNorm: 285194 1 Tablet(s) PO every other day x 5 doses 09/12/2012 11/25/2012 Inactive levothyroxine 50 mcg tablet RxNorm: 900169 1 Tablet(s) PO daily 09/06/2012 12/31/2012 Inactive atorvastatin 40 mg tablet RxNorm: 818927 1 Tablet(s) PO daily 09/06/2012 08/31/2013 Inactive TAKE 1 TABLET BY MOUTH DAILY (THIS IS AN INCREASE IN DOSAGE) Xanax 0.5 mg tablet RxNorm: 614154 Tablet(s) PO TAKE 1/2 TO 1 TABLET BY MOUTH EVERY 8 HOURS NEEDED FOR ANXIETY 08/27/2012 12/26/2012 Inactive (Appended: Controlled substance eRx refill - RxReferenceNumber: [id number]|1|0|1) Zofran 4 mg tablet RxNorm: 984652 1 Tablet(s) PO Q6 PRN 08/1302/10/2013 Inactive Cipro 500 mg tablet RxNorm: 794887 1 Tablet(s) PO BID 201208/07/2012 Inactive Cipro 500 mg tablet RxNorm: 581804 1 Tablet(s) PO BID 201208/12/2012 Inactive Flagyl 500 mg tablet RxNorm: 169933 1 Tablet(s) PO TID 201208/12/2012 Inactive cefdinir 300 mg capsule RxNorm: 133827 1 Capsule(s) PO BID 08/201207/29/2012 Inactive nystatin 100,000 unit/mL Oral Susp RxNorm: 491814 6 Unit(s) PO QID 07/06/2012 07/15/2012 Inactive Kenalog 40 mg/mL Susp for Injection RxNorm: 2501942 1 Milliliter(s) Inj 07/06/2012 07/06/2012 Inactive Zithromax 500 mg tablet RxNorm: 3548050 1 Tablet(s) PO daily 07/10/2012 Inactive metformin 850 mg tablet RxNorm: 090742 1/2 Tablet(s) PO TID 09/201208/24/2012 Inactive TAKE 1 TABLET BY MOUTH IN THE MORNING, 1/2 TABLET AT NOON, AND 1 TABLET IN THE EVENING Lyrica 50 mg capsule RxNorm: 282206 1 Capsule(s) PO TID 201206/25/2012 Inactive Diflucan 150 mg tablet RxNorm: 601689 1 Tablet(s) PO daily 05/201206/25/2012 Inactive TAKE 1 TABLET BY MOUTH EVERY DAY Levaquin 500 mg tablet RxNorm: 670352 1 Tablet(s) PO daily 06/19/2012 Inactive Pneumovax 23 25 mcg/0.5 mL Injection RxNorm: 477258 1/2 Milliliter(s) Inj 06/07/2012 06/07/2012 Inactive metformin 850 mg tablet RxNorm: 264947 1/2 Tablet(s) PO BID 06/25/2012 Inactive TAKE 1 TABLET BY MOUTH IN THE MORNING, 1/2 TABLET AT NOON, AND 1 TABLET IN THE EVENING cefdinir 300 mg capsule RxNorm: 889067 1 Capsule(s) PO BID 02/201305/30/2012 Inactive cefdinir 300 mg capsule RxNorm: 967520 1 Capsule(s) PO BID 02/201306/06/2012 Inactive prednisone 10 mg tablets in a dose pack RxNorm: 158946 Tablet(s) PO UD 6-5-4-3-2- 1 05/31/2012 05/06/2013 Inactive Cipro 500 mg tablet RxNorm: 157350 1 Tablet(s) PO BID 201206/03/2012 Inactive Xanax 0.5 mg tablet RxNorm: 004612 Tablet(s) PO TAKE 1/2 TO 1 TABLET BY MOUTH EVERY 8 HOURS NEEDED FOR ANXIETY 05/28/2012 08/27/2012 Inactive (Appended: Controlled substance eRx refill - RxReferenceNumber: [id number]|1|0|1) Cartia XT 180 mg capsule,extended release RxNorm: 123731 Capsule(s) PO TAKE 1 CAPSULE BY MOUTH AT BEDTIME ..TAKE THIS IN ADDITION TO 240 MG IN THE MORNING 05/24/2012 10/28/2012 Inactive Diflucan 150 mg tablet RxNorm: 026961 1 Tablet(s) PO daily 06/201205/26/2012 Inactive TAKE 1 TABLET BY MOUTH EVERY DAY Cartia XT 240 mg capsule,extended release RxNorm: 915262 1 Capsule(s) PO QAM 05/23/2012 09/06/2012 Inactive in addition to 180mg q pm omeprazole 20 mg capsule,delayed release RxNorm: 231036 Capsule(s) PO TAKE 1 CAPSULE BY MOUTH TWICE DAILY 05/21/2012 Inactive diltiazem ER (XR/XT) 240 mg capsule,extended release, controlled RxNorm: 895863 1 Capsule(s) PO daily TAKE ONE CAPSULE BY MOUTH EVERY DAY 05/21/2012 05/30/2013 Inactive Toprol XL 25 mg tablet,extended release RxNorm: 004884 1 Tablet(s) PO QPM take with 50mg (1/2 tab of 100mg) each evening. Continue 100mg in the morning. 05/17/2012 05/27/2012 Inactive Activella 0.5 mg-0.1 mg tablet RxNorm: 7858642 Tablet(s) PO TAKE 1 TABLET BY MOUTH DAILY FOR MENOPAUSAL SYMPTOM 05/09/2012 05/16/2013 Inactive colestipol 1 gram tablet RxNorm: 1763365 Tablet(s) PO TAKE 1 TABLET BY MOUTH TWICE DAILY 05/08/2012 04/21/2016 Inactive Kenalog 40 mg/mL Susp for Injection RxNorm: 6948742 1 Milliliter(s) Inj 05/02/2012 05/02/2012 Inactive Xanax 0.5 mg tablet RxNorm: 625645 Tablet(s) PO 04/16/2012 05/28/2012 Inactive TAKE 1/2 TO 1 TABLET BY MOUTH EVERY 8 HOURS NEEDED FOR ANXIETY (Appended: Controlled substance eRx refill - RxReferenceNumber: [id number]|1|0|1) Diflucan 150 mg tablet RxNorm: 549384 1 Tablet(s) PO daily 05/22/2012 Inactive TAKE 1 TABLET BY MOUTH EVERY DAY Cipro 500 mg tablet RxNorm: 163385 1 Tablet(s) PO BID 201104/19/2012 Inactive Zithromax Z-Babak 250 mg tablet RxNorm: 434999 Tablet(s) PO UD 05/30/2012 Inactive metformin 850 mg tablet RxNorm: 612784 Tablet(s) PO take one pill by mouth in AM, 1/2 at noon, and 1 pill in the evening. 03/16/2012 06/06/2012 Inactive TAKE 1 TABLET BY MOUTH IN THE MORNING, 1/2 TABLET AT NOON, AND 1 TABLET IN THE EVENING Xanax 0.5 mg tablet RxNorm: 740370 Tablet(s) PO 03/05/2012 04/15/2012 Inactive TAKE 1/2 TO 1 TABLET BY MOUTH EVERY 8 HOURS NEEDED FOR ANXIETY (Appended: Controlled substance [facility]Rx refill - [facility]: [id number]|1|0|1) potassium chloride ER 10 mEq tablet,extended release RxNorm: 680634 1 Tablet(s) PO QDAY PRN take with lasix 03/05/201204/2013 Inactive potassium chloride ER 10 mEq tablet,extended release RxNorm: 790242 1 Tablet(s) PO QDAY PRN take with lasix 02/28/2012 Inactive Lasix 20 mg tablet RxNorm: 958162 Tablet(s) PO QDAY PRN 02/2708/25/2012 Inactive doxycycline hyclate 100 mg capsule RxNorm: 655105 1 Capsule(s) PO BID 02/27/2012 03/04/2012 Inactive Effexor XR 37.5 mg capsule,extended release RxNorm: 720901 Capsule(s) PO 02/26/2012 01/28/2013 Inactive TAKE 2 CAPSULES BY MOUTH EVERY MORNING AND 1 CAPSULE EVERY NIGHT AT BEDTIME Lomotil 2.5 mg-0.025 mg tablet RxNorm: 1716298 Tablet(s) PO 07/201103/05/2012 Inactive 1 after each loose bm limit 4 per day doxycycline hyclate 100 mg capsule RxNorm: 930567 1 Capsule(s) PO BID 02/15/2012 02/21/2012 Inactive Diflucan 150 mg tablet RxNorm: 195429 Tablet(s) PO daily 201102/21/2012 Inactive TAKE 1 TABLET BY MOUTH EVERY DAY colestipol,micronized 1 gram tablet RxNorm: 8678394 Tablet(s) PO 02/06/2012 04/21/2016 Inactive TAKE 1 TABLET BY MOUTH TWICE DAILY Effexor XR 37.5 mg capsule,extended release RxNorm: 358603 Capsule(s) PO 02/06/2012 02/16/2016 Inactive TAKE 2 CAPSULES BY MOUTH EVERY MORNING AND 1 CAPSULE EVERY NIGHT AT BEDTIME potassium chloride ER 10 mEq tablet,extended release RxNorm: 440691 1 Tablet(s) PO QDAY PRN take with lasix 02/01/201212/2011 Inactive Levaquin 500 mg tablet RxNorm: 236096 1 Tablet(s) PO daily 04/201202/07/2012 Inactive Diflucan 150 mg tablet RxNorm: 854420 Tablet(s) PO 01/27/2012 02/14/2012 Inactive TAKE 1 TABLET BY MOUTH EVERY DAY Effexor XR 37.5 mg capsule,extended release RxNorm: 856072 Capsule(s) PO 01/05/2012 02/05/2012 Inactive TAKE 2 CAPSULES BY MOUTH EVERY MORNING , AND 1 CAPSULE BY MOUTH EVERY NIGHT AT BEDTIME Effexor XR 37.5 mg capsule,extended release RxNorm: 247621 Capsule(s) PO 12/29/2011 01/04/2012 Inactive TAKE 2 CAPSULES BY MOUTH EVERY MORNING , AND 1 CAPSULE BY MOUTH EVERY NIGHT AT BEDTIME Diflucan 150 mg tablet RxNorm: 520682 Tablet(s) PO 12/29/2011 04/09/2012 Inactive TAKE 1 TABLET BY MOUTH EVERY DAY Cipro 500 mg tablet RxNorm: 013145 1 Tablet(s) PO BID 201101/07/2012 Inactive Toprol XL 100 mg tablet,extended release RxNorm: 653840 Tablet(s) PO as doctor directed one tab in am and 1/2 at night 11/30/2011 10/10/2012 Inactive Phenergan 25 mg/mL Injection RxNorm: 404524 Milliliter(s) Inj 11/30/2011 11/30/2011 Inactive Toprol XL 100 mg 24 hr Tab RxNorm: 994451 1.5 Tablet(s) PO as doctor directed one tab in am and 1/2 at night 11/17/201102/2012 Inactive Xopenex HFA 45 mcg/actuation Aerosol Inhaler RxNorm: 837086 2 INH QID 11/08/2011 12/01/2012 Inactive Effexor XR 150 mg 24 hr Cap RxNorm: 693613 1 Capsule(s) PO daily 10/24/2011 01/04/2012 Inactive Xanax 0.5 mg tablet RxNorm: 301882 1/2-1 Tablet(s) PO Q8 PRN 10/20/2011 03/05/2012 Inactive levothyroxine 25 mcg tablet RxNorm: 029177 Tablet(s) PO 201109/05/2012 Inactive TAKE 1 TABLET BY MOUTH DAILY Xanax 0.5 mg Tab RxNorm: 860364 1/2-1 Tablet(s) PO Q8 PRN 09/26/2011 10/19/2011 Inactive potassium chloride ER 10 mEq Tab RxNorm: 411362 1 Tablet(s) PO daily 09/20/2011 09/24/2011 Inactive Lasix 20 mg Tab RxNorm : 444187 1 Tablet(s) PO daily 09/20/2011 09/24/2011 Inactive Xanax 0.5 mg Tab RxNorm: 126268 1/2-1 Tablet(s) PO Q8 PRN 09/12/2011 09/25/2011 Inactive Xanax 0.5 mg Tab RxNorm: 437376 1/2-1 Tablet(s) PO Q8 PRN 08/24/2011 09/11/2011 Inactive Lipitor 20 mg tablet RxNorm: 649563 Tablet(s) PO 08/22/2011 09/05/2012 Inactive TAKE 1 TABLET BY MOUTH DAILY (THIS IS AN INCREASE IN DOSAGE) Cipro 500 mg Tab RxNorm: 025379 1 Tablet(s) PO BID 201110/24/2011 Inactive Flagyl 500 mg Tab RxNorm: 673731 1 Tablet(s) PO TID 201110/24/2011 Inactive Diflucan 150 mg Tab RxNorm: 623620 1 Tablet(s) PO daily 201110/24/2011 Inactive Kenalog 40 mg/mL Susp for Injection RxNorm: 8685037 1 Milliliter(s) Inj 08/01/2011 10/24/2011 Inactive FreeStyle Lancets RxNorm: 1 test Miscellaneous TID 201107/08/2014 Inactive dispense quantity sufficient for three times daily testing for diabetes FreeStyle Test strips RxNorm: 1 Miscellaneous BID 07/21/2011 08/13/2012 Inactive please give lancets alsodx 250.02 Xanax 0.25 mg Tab RxNorm: 087950 1 Tablet(s) PO Q8 PRN 07/06 No Stop Date Active colestipol 1 gram Tab RxNorm: 4865308 Tablet(s) PO 07/04/2011 04/21/2016 Inactive TAKE 1 TABLET BY MOUTH TWICE DAILY DIRECTED colestipol 1 gram tablet RxNorm: 7875174 1 Tablet(s) PO BID 07/03/2011 Inactive Cartia XT 180 mg capsule,extended release RxNorm: 597447 1 Capsule(s) PO QHS 06/30/2011 11/16/2011 Inactive in addition to 240mg q am venlafaxine 37.5 mg Tab RxNorm: 881074 1 Tablet(s) PO BID 06/2406/29/2011 Inactive prednisone 5 mg Tab RxNorm: 670254 Tablet(s) PO UD 2011 10/24/2011 Inactive six day taper #21 Lyrica 50 mg capsule RxNorm: 296447 1 Capsule(s) PO TID 201108/18/2011 Inactive Diflucan 150 mg tablet RxNorm: 682559 1 Tablet(s) PO daily 06/24/2011 Inactive levofloxacin 500 mg Tab RxNorm: 300385 1 Tablet(s) PO daily 08/15/2011 Inactive azithromycin 250 mg Tab RxNorm: 055793 PO 05/23/2011 06/20/2011 Inactive omeprazole 20 mg capsule,delayed release RxNorm: 909888 Capsule(s) PO 05/10/2011 05/20/2012 Inactive TAKE 1 CAPSULE BY MOUTH TWICE DAILY;Patient requests 90 day supply diltiazem ER (XR/XT) 240 mg capsule,extended release, controlled RxNorm: 968806 Capsule(s) PO 04/19/2011 05/21/2012 Inactive TAKE 1 CAPSULE BY MOUTH EVERY MORNING;Patient requests 90 day supply Kenalog 40 mg/mL Susp for Injection RxNorm: 2389670 1 Milliliter(s) Inj 04/18/2011 06/20/2011 Inactive clindamycin 300 mg Cap RxNorm: 303922 1 Capsule(s) PO BID 04/1806/20/2011 Inactive lisinopril-hydrochlorothiazide 20 mg-12.5 mg Tab RxNorm: 460121 2 Tablet(s) PO daily 04/18/2011 10/24/2011 Inactive fluconazole 150 mg Tab RxNorm: 271108 1 Tablet(s) PO daily 07/201006/20/2011 Inactive Activella 0.5 mg-0.1 mg tablet RxNorm: 9755849 Tablet(s) PO 05/201005/08/2012 Inactive TAKE 1 TABLET BY MOUTH DAILY FOR MENOPAUSAL SYMPTOM diltiazem ER (XR/XT) 240 mg Continuous Release Cap RxNorm: 248684 1 Capsule(s) PO daily 03/17/2011 03/16/2011 Inactive diltiazem ER (XR/XT) 240 mg Continuous Release Cap RxNorm: 614998 Capsule(s) PO 03/17/2011 06/20/2011 Inactive TAKE 1 CAPSULE BY MOUTH EVERY MORNING metformin 850 mg tablet RxNorm: 335717 1 Tablet(s) PO as doctor directed take one pill by mouth in AM, 1/2 at noon, and 1 pill in the evening. 01/21/2011 04/20/2011 Inactive Xopenex 1.25 mg/3 mL solution for nebulization RxNorm: 687177 3 Milliliter(s) INH Q6 PRN No Start Date Active Lomotil 2.5 mg-0.025 mg tablet RxNorm: 8164399 Tablet(s) PO No Start Date 02/21/2012 Inactive 1 after each loose bm limit 4 per day Novolog Flexpen U-100 Insulin aspart 100 unit/mL subcutaneous RxNorm: 4051646 10 Unit(s) SQ AC No Start Date 10/26 Inactive with sliding scale-Dr Yanna Judd FlexTouch U-100 100 unit/mL (3 mL) subcutaneous insulin pen RxNorm: 6317978 40 Unit(s) SQ daily No Start Date Inactive gabapentin 600 mg tablet RxNorm: 144240 1 Tablet(s) PO TID No Start Date 06/26/2013 Inactive Effexor XR 37.5 mg capsule,extended release RxNorm: 218169 1 Capsule(s) PO BID No Start Date 10/23/2011 Inactive Levemir FlexTouch 100 unit/mL (3 mL) subcutaneous insulin pen RxNorm: 608600 50 Unit(s) SQ BID No Start Date 04/24/2017 Inactive Combivent Respimat 20 mcg-100 mcg/actuation solution for inhalation RxNorm: 0051574 1 INH QID No Start Date 05/11/2014 Inactive Xanax 0.5 mg Tab RxNorm: 507882 1/2-1 Tablet(s) PO Q8 PRN No Start Date 08/23/2011 Inactive Xopenex HFA 45 mcg/actuation Aerosol Inhaler RxNorm: 339578 2 INH QID No Start Date 11/07/2011 Inactive promethazine 25 mg tablet RxNorm: 487550 1 Tablet(s) PO Q8 as needed No Start Date 08/12/2015 Inactive colestipol 1 gram Tab RxNorm: 4381284 1 Tablet(s) PO BID No Start Date 07/03/2011 Inactive Cartia XT 240 mg capsule,extended release RxNorm: 693034 1 Capsule(s) PO QAM No Start Date 05/22/2012 Inactive in addition to 180mg q pm Lipitor 20 mg Tab RxNorm: 861804 1 Tablet(s) PO daily No Start Date 08/21/2011 Inactive FreeStyle Test Strips RxNorm: 1 Miscellaneous BID No Start Date 07/20/2011 Inactive Toujeo SoloStar U-300 Insulin 300 unit/mL (1.5 mL) subcutaneous pen RxNorm: 3519872 40 Unit(s) SQ BID No Start Date 10/26/2017 Inactive Diflucan 150 mg tablet RxNorm: 138445 1 Tablet(s) PO daily 1 pill po every other day x 8 doses No Start Date 03/18/2013 Inactive hydrocodone 5 mg-acetaminophen 500 mg tablet RxNorm: 679042 1 Tablet(s) PO Q6 PRN No Start Date 01/28/2013 Inactive Lasix 20 mg tablet RxNorm: 311364 Tablet(s) PO QDAY PRN No Start Date 02/27/2012 Inactive Promethazine VC 6.25 mg-5 mg/5 mL Syrup RxNorm: 2316041 1-2 PO Q6 PRN No Start Date 10/07/2013 Inactive promethazine 25 mg tablet RxNorm: 820008 1 Tablet(s) PO Q6 PRN No Start Date 02/09/2017 Inactive digoxin 125 mcg tablet RxNorm: 969563 1 Tablet(s) PO daily No Start Date 06/20/2017 Inactive Xanax 0.25 mg Tab RxNorm: 385858 1 Tablet(s) PO Q8 PRN No Start Date 07/05/2011 Inactive Diflucan 150 mg tablet RxNorm: 893929 1 Tablet(s) PO every other day x 4 doses No Start Date 04/09/2014 Inactive Carafate 100 mg/mL Oral Susp RxNorm: 078494 2 Teaspoon(s) PO daily No Start Date 10/24/2011 Inactive prednisone 5 mg Tab RxNorm: 827793 Tablet(s) PO UD No Start Date 06/22/2011 Inactive six day taper #21 Tessalon Perles 100 mg capsule RxNorm: 175420 2 Capsule(s) PO TID as needed No Start Date 05/16/2017 Inactive Bactroban 2 % topical ointment RxNorm: 194825 1 Application TOP BID No Start Date 09/26/2013 Inactive Phenergan 25 mg tablet RxNorm: 330886 1 Tablet(s) PO Q8 as needed nausea No Start Date 06/28/2015 Inactive flecainide 50 mg tablet RxNorm: 410114 1 Tablet(s) PO BID No Start Date 02/01/2016 Inactive Activella 0.5 mg-0.1 mg Tab RxNorm: 1805799 1 Tablet(s) PO daily No Start Date 03/21/2011 Inactive hydrocodone 10 mg-acetaminophen 325 mg tablet RxNorm: 219926 1 Tablet(s) PO Q6 as needed No Start Date 02/04/2016 Inactive lisinopril 20 mg Tab RxNorm: 466782 1 Tablet(s) PO daily No Start Date 06/20/2011 Inactive prednisone 10 mg tablets in a dose pack RxNorm: 979203 Tablet(s) PO UD 6-5-4-3-2- 1 No Start Date 05/30/2012 Inactive hydrocodone 7.5 mg-acetaminophen 325 mg tablet RxNorm: 525018 1 Tablet(s) PO Q6 PRN No Start Date 10/06/2013 Inactive hyoscyamine 0.125 mg sublingual tablet RxNorm: 8061943 1 Tablet(s) SL TID as needed No Start Date 05/16/2017 Inactive Cartia XT 180 mg 24 hr Cap RxNorm: 923170 1 Capsule(s) PO QHS No Start Date 06/29/2011 Inactive in addition to 240mg q am Zofran 4 mg tablet RxNorm: 053124 1 Tablet(s) PO Q6 PRN No Start Date 08/12/2012 Inactive omeprazole 20 mg Cap, Delayed Release RxNorm: 503272 1 Capsule(s) PO BID No Start Date 05/09/2011 Inactive venlafaxine 37.5 mg Tab RxNorm: 313109 1 Tablet(s) PO BID No Start Date 10/24/2011 Inactive Novolog Flexpen U-100 Insulin aspart 100 unit/mL subcutaneous RxNorm: 9980312 10 units with meals plus SSI in comments per dr raines Unit(s) SQ No Start Date 05/17/2018 Inactive Novolg 10 units before meals PLUS extra if blood sugar is high. Add 1 u for BG 151-175, 2u for BG 176-200, 3 u for BG 201-225, 4u BG 226-250, 6u for BG 251-275, add 7u for BG 276-300, add 8u 301-325 Vesicare 10 mg tablet RxNorm: 189353 1 Tablet(s) PO daily No Start Date 09/28/2015 Inactive levothyroxine 25 mcg Tab RxNorm: 541956 1 Tablet(s) PO daily No Start Date 10/18/2011 Inactive Zithromax Z-Babak 250 mg tablet RxNorm: 500553 Tablet(s) PO UD No Start Date 04/01/2012 Inactive Januvia 100 mg tablet RxNorm: 627034 1 Tablet(s) PO daily No Start Date 05/22/2013 Inactive Lantus Solostar 100 unit/mL (3 mL) subcutaneous insulin pen RxNorm: 945178 Unit( s) SQ No Start Date 04/17/2017 Inactive 10 units q am and 50units at night fluconazole 150 mg tablet RxNorm: 668424 1 Tablet(s) PO every other day x 5 doses No Start Date 09/11/2012 Inactive Toprol XL 25 mg 24 hr Tab RxNorm: 597233 1 Tablet(s) PO daily No Start Date 11/16/2011 Inactive Medication Administered Medication Codes Instructions Start Date Status Kenalog 40 mg/mL suspension for injection RxNorm: 8296518 Milliliter 06/26/2015 No longer Active Kenalog 40 mg/mL suspension for injection RxNorm: 4455914 Milliliter 05/07/2013 No longer Active Kenalog 40 mg/mL Susp for Injection RxNorm: 4447476 1Milliliter 07/06/2012 No longer Active Pneumovax 23 25 mcg/0.5 mL Injection RxNorm: 844791 1/2Milliliter 06/07/2012 No longer Active Kenalog 40 mg/mL Susp for Injection RxNorm: 0340443 1Milliliter 05/02/2012 No longer Active Phenergan 25 mg/mL Injection RxNorm: 583677 Milliliter 11/30/2011 No longer Active Immunizations Vaccine Codes Date Status Pneumococcal (Adult) CVX: 133 02/26/2016 completed PPD Unknown 12/25/2014 completed PPD Unknown 09/27/2013 completed Pneumococcal CVX: 33 06/07/2012 completed Pneumococcal (Adult) CVX: 33 06/07/2012 completed Assessments Condition Codes Effective Dates Other hypotension ICD-10: I95.89 ICD-9: 458.8 05/21/2018 Slurred speech ICD-10: R47.81 ICD-9: 784.59 05/21/2018 Headache ICD-10: R51 ICD-9: 784.0 05/21/2018 Repeated falls ICD-10: R29.6 ICD-9: 781.99 05/21/2018 Acute recurrent pansinusitis ICD-10: J01.41 ICD-9: 461.8 05/21/2018 Type 2 diabetes mellitus with hyperglycemia ICD-10: E11.65 ICD-9: 250.00 05/21/2018 Essential (primary) hypertension ICD-10: I10 ICD-9: 401.1 05/16/2018 Generalized anxiety disorder ICD-10: F41.1 ICD-9: 300.00 05/16/2018 Cough ICD-10: R05 ICD-9: 786.2 04/27/2018 Chronic maxillary sinusitis ICD-10: J32.0 ICD-9: 473.0 04/27/2018 Generalized anxiety disorder ICD-10: F41.1 ICD-9: 300.02 04/10/2018 Weakness ICD-10: R53.1 ICD-9: 780.79 04/10/2018 Low back pain ICD-10: M54.5 ICD-9: 724.2 03/12/2018 Anemia, unspecified ICD-10: D64.9 ICD-9: 285.9 02/22/2018 Vitamin D deficiency, unspecified ICD-10: E55.9 ICD-9: 268.9 02/20/2018 Dysuria ICD-10: R30.0 ICD-9: 788.1 02/20/2018 Encounter for general adult medical examination with abnormal findings ICD-10: Z00.01 ICD-9: V70.0 10/27/2017 Encounter for screening mammogram for malignant neoplasm of breast ICD-10: Z12.31 ICD-9: V76.12 10/27/2017 Type 2 diabetes mellitus with hyperglycemia ICD-10: E11.65 ICD-9: 250.02 09/27/2017 Unspecified injury of head, initial encounter ICD-10: S09.90XA ICD-9: 959.01 09/27/2017 Chronic pain syndrome ICD-10: G89.4 ICD-9: 338.4 09/15/2017 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 loss (chronic) ICD -10: D50.0 ICD-9: 280.0 08/18/2017 Hordeolum externum left upper eyelid ICD-10: H00.014 ICD-9: 373.11 08/03/2017 Chronic obstructive pulmonary disease, unspecified ICD-10: J44.9 ICD-9: 496 07/27/2017 Periapical abscess without sinus ICD-10: K04.7 ICD-9: 522.5 04/21/2017 Unsteadiness on feet ICD-10: R26.81 ICD-9: 781.2 04/18/2017 Cellulitis of abdominal wall ICD-10: L03.311 ICD-9: 682.2 04/18/2017 Essential (primary) hypertension ICD-10: I10 ICD-9: 401.9 04/18/2017 Hypokalemia ICD-10: E87.6 ICD-9: 276.8 03/27/2017 Paroxysmal atrial fibrillation ICD-10: I48.0 ICD-9: 427.31 03/27/2017 Generalized abdominal pain ICD-10: R10.84 ICD-9: 789.07 02/27/2017 Hypomagnesemia ICD-10: E83.42 ICD-9: 275.2 02/24/2017 Drug induced constipation ICD-10: K59.03 ICD-9: 564.09 02/21/2017 Diarrhea, unspecified ICD-10: R19.7 ICD-9: 787.91 02/13/2017 Pain in right shoulder ICD-10: M25.511 ICD-9: 719.41 01/30/2017 Obstructive sleep apnea (adult) (pediatric) ICD-10: G47.33 ICD-9: 327.23 01/16/2017 Hypothyroidism, unspecified ICD-10: E03.9 ICD-9: 244.9 01/16/2017 Restless legs syndrome ICD-10: G25.81 ICD-9: 333.94 01/16/2017 Other acute sinusitis ICD-10: J01.80 ICD-9: 461.8 12/13/2016 Diplopia ICD-10: H53.2 ICD-9: 368.2 12/13/2016 Other obesity due to excess calories ICD-10: E66.09 ICD-9: 278.00 11/11/2016 Zoster without complications ICD-10: B02.9 ICD-9: 053.9 11/11/2016 Fasciculation ICD-10: R25.3 ICD-9: 781.0 11/11/2016 Unilateral primary osteoarthritis, right knee ICD-10: M17.11 ICD-9: 715.96 11/11/2016 Vomiting, unspecified ICD-10: R11.10 ICD-9: 787.03 10/28/2016 Pain in right knee ICD-10: M25.561 ICD-9: 719.46 10/13/2016 Allergic rhinitis due to pollen ICD-10: J30.1 ICD-9: 477.0 09/23/2016 Acute recurrent maxillary sinusitis ICD-10: J01.01 ICD-9: 461.0 09/23/2016 Cervicalgia ICD-10: M54.2 ICD-9: 723.1 09/13/2016 Candidiasis of skin and nail ICD-10: B37.2 ICD-9: 112.3 09/13/2016 Pneumonia, unspecified organism ICD-10: J18.9 ICD-9: 486 07/26/2016 Menopausal and female climacteric states ICD-10: N95.1 ICD-9: 627.2 04/19/2016 Major depressive disorder, single episode, mild ICD-10: F32.0 ICD-9: 311 03/21/2016 Localized edema ICD-10: R60.0 ICD-9: 782.3 03/11/2016 Cellulitis of right lower limb ICD-10: L03.115 ICD-9: 682.6 03/11/2016 Other elevated white blood cell count ICD-10: D72.828 ICD-9: 288.69 03/11/2016 Other conjunctivitis ICD-10: H10.89 ICD-9: 372.33 02/26/2016 Unspecified asthma, uncomplicated ICD-10: J45.909 ICD-9: 493.90 02/26/2016 Encounter for immunization ICD-10: Z23 ICD-9: V03.82 02/26/2016 VAC STREP PNEUMONIAE-FLU ICD-10: Z23 ICD-9: V06.6 02/26/2016 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 ICD-9: 255.41 12/17/2015 Pleurodynia ICD-10: R07.81 ICD-9: 786.50 12/08/2015 Syncope and collapse ICD-10: R55 ICD-9: 780.2 12/08/2015 Addisonian crisis ICD-10: E27.2 ICD-9: 255.41 11/12/2015 Other malaise ICD-10: R53.81 ICD-9: 780.79 11/10/2015 Other acute sinusitis ICD-10: J01.80 ICD-9: 461.9 11/10/2015 Acute bronchitis due to other specified organisms ICD-10: J20.8 ICD-9: 466.0 11/10/2015 Cellulitis of right toe ICD-10: L03.031 ICD-9: 681.10 10/27/2015 Pain in left knee ICD-10: M25.562 ICD-9: 719.46 10/27/2015 Body mass index (BMI) 40.0-44.9, adult ICD-10: Z68.41 ICD-9: V85.41 08/10/2015 Edema, unspecified ICD-10: R60.9 ICD-9: 782.3 04/14/2015 Blister of leg ICD-9: 916.2 01/15/2015 Rash ICD-9: 782.1 01/15/2015 EDEMA ICD-9: 782.3 01/15/2015 Cellulitis, leg ICD-9: 682.6 01/01/2015 DIABETES TYPE II ICD-9: 250.00 2014 CVA (cerebral vascular accident) ICD-9: 434.91 12/25/2014 DYSURIA ICD-9: 788.1 11/05/2014 DM W/O COMPLICATION TYPE II, UNCONTROLLED ICD-9: 250.02 11/04/2014 ESSENTIAL HYPERTENSION ICD-9: 401.9 11/04 Allergic rhinitis ICD-9: 477.9 2014 Sciatica ICD-9: 724.3 06/12/2014 Urinary urgency ICD-9: 788.63 04/21/2014 Chronic sinusitis ICD-9: 473.9 2013 Right knee pain ICD-9: 719.46 03/25/2014 OPEN WND KNEE/LEG/ANKLE ICD-9: 891.0 11/2013 COUGH ICD-9: 786.2 11/14/2013 Asthma exacerbation ICD-9: 493.92 2013 Wrist pain, left ICD-9: 719.43 2013 HYPOTHYROIDISM ICD-9: 244.9 08/12/2013 LUMBAGO ICD-9: 724.2 08/12/2013 Encounter for long-term (current) use of other medications ICD-9: V58.69 08/01/2013 Blister of right foot ICD-9: 917.2 2013 Muscle spasms of neck ICD-9: 728.85 06/27 BACKACHE ICD-9: 724.5 06/27/2013 WHEEZING ICD-9: 786.07 06/10/2013 OBESITY ICD-9: 278.00 06/10/2013 SACROILIITIS NEC ICD-9: 720.2 05/07/2013 ACUTE BRONCHITIS ICD-9: 466.0 05/07/2013 COPD (chronic obstructive pulmonary disease) with acute bronchitis ICD-9: 491.22 04/16/2013 Abdominal pain ICD-9: 789.00 02/12/2013 RESPIRATORY ABNORM NEC ICD-9: 786.09 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 2012 Callus ICD-9: 700 12/31/2012 Diarrhea ICD-9: 787.91 08/23/2012 Gastroenteritis ICD-9: 558.9 08/13/2012 Acute sinusitis ICD-9: 461.9 07/06/2012 Thrush ICD-9: 112.0 07/06/2012 VAC STREP PNEUMONIAE-FLU ICD-9: V06.6 Labial cyst ICD-9: 624.8 05/28/2012 Foreign body in foot or toe ICD-9: 917.6 02/27/2012 CELLULITIS OF FOOT ICD-9: 682.7 2011 Trigger point of extremity ICD-9: 729.5 12/14/2011 Diverticulitis ICD-9: 562.11 12/14/2011 Nausea vomiting and diarrhea ICD-9: 787.01 11/30/2011 FALL AGAINST OBJECT ICD-9: E888.1 2011 ANXIETY STATE ICD-9: 300.00 11/03/2011 Tachycardia ICD-9: 785.0 11/03/2011 Chronic depression ICD-9: 311 11/03/2011 Ulcer of toe ICD-9: 707.15 10/24/2011 Anxiety, generalized ICD-9: 300.02 2011 Dehydration ICD-9: 276.51 08/09/2011 Yeast infection ICD-9: 112.9 08/01/2011 Fibromyalgia ICD-9: 729.1 06/20/2011 ACUTE MAXILLARY SINUSITIS ICD-9: 461.0 Reason For Visit Reason For Visit Effective Dates Notes neck pain 05/21/2018 cough 05/16/2018 diabetes mellitus 04/27/2018 diabetes mellitus 04/10/2018 gait abnormality 03/12/2018 dysuria 02/20/2018 diabetes mellitus 11/27/2017 Annual Medicare Wellness Exam 10/27/2017 diabetes mellitus 09/27/2017 oral pain 09/15/2017 oral pain 08/18/2017 hypertension 08/03/2017 hypertension 07/27/2017 hypertension 06/13/2017 oral lesion 04/21/2017 hypertension 04/18/2017 urinary urgency 03/27/2017 abdominal pain 02/27/2017 abdominal pain 02/21/2017 abdominal pain 02/17/2017 Hospital Follow Up 02/13/2017 pneumonia shoulder pain 01/30/2017 worsening sinus congestion 01/16/2017 headache 12/13/2016 weight loss 11/11/2016 sinus congestion 10/28/2016 shoulder pain 10/13/2016 worsening sinus congestion 09/23/2016 shoulder pain 09/13/2016 worsening shoulder pain 08/09/2016 Hospital Follow Up 07/26/2016 diabetes mellitus 05/24/2016 diabetes mellitus 04/19/2016 diabetes mellitus 04/11/2016 medication follow up 03/21/2016 diabetes mellitus 03/11/2016 diabetes mellitus 02/26/2016 Hospital Follow Up 02/02/2016 headache 12/17/2015 nausea 12/08/2015 Hospital Follow Up 11/27/2015 Hospital Follow Up 11/12/2015 cough 11/10/2015 knee pain 10/27/2015 Annual Medicare Wellness Exam 09/29/2015 diabetes mellitus 09/22/2015 diaphoresis 09/01/2015 right great toe and the bottom of her foot (2 areas) sinus congestion 08/10/2015 cough 06/26/2015 rash 04/14/2015 nausea 03/03/2015 pedal edema 01/15/2015 Hospital Follow Up 01/01/2015 dysuria 11/04/2014 diabetes mellitus 09/08/2014 diabetes mellitus 08/29/2014 area on right lower [place] sinus congestion 06/30/2014 area on right lower [place] diabetes mellitus 06/12/2014 area on right lower [place] is closed but red and dry in color. knee pain 05/26/2014 right edema 04/15/2014 BLE- right leg with redness to [place] area edema 03/25/2014 BLE- right leg with redness to [place] area edema 03/03/2014 BLE- right leg with redness to [place] area edema 02/13/2014 BLE- right leg with redness to [place] area vision change 01/27/2014 r/t elevated BS skin lesion 12/26/2013 skin lesion 12/12/2013 cough 11/14/2013 skin lesion 10/21/2013 knee pain 10/03/2013 skin lesion 09/27/2013 cellulitis 09/23/2013 skin lesion 09/20/2013 skin lesion 09/10/2013 diabetes mellitus 08/19/2013 back pain 08/12/2013 diabetes mellitus 08/01/2013 blisters 07/19/2013 skin lesion 07/15/2013 spasms/spasticity 06/27/2013 dyspnea 06/10/2013 dyspnea 05/07/2013 edema 04/16/2013 edema 03/21/2013 diabetes mellitus 02/12/2013 Hospital Follow Up 02/04/2013 edema 01/17/2013 earache 12/31/2012 sinus congestion 12/20/2012 sinus congestion 10/29/2012 pt states she can feel the drainage going down her throat back pain 09/21/2012 hypertension 09/06/2012 hypertension 08/23/2012 headache 08/13/2012 vomiting 08/07/2012 dizziness 07/06/2012 hypertension 06/07/2012 hypertension 05/28/2012 blood pressure followup 05/17/2012 edema 05/02/2012 hypertension 04/10/2012 foot ulcer 02/27/2012 edema 02/15/2012 edema 02/01/2012 hypertension 12/14/2011 nausea 11/30/2011 diabetes mellitus 11/17/2011 cough 11/03/2011 arrhythmia 10/24/2011 edema 09/26/2011 --Improved edema 09/20/2011 sinus congestion 09/01/2011 pt states she can feel the drainage going down her throat nausea 08/15/2011 arrhythmia 08/09/2011 diabetes mellitus 08/01/2011 diabetes mellitus 06/20/2011 chills 04/18/2011 Results Observation Observation Code Item Item Code Result Date Urine Culture Ucult Preliminary NO Growth Day 1 02/22/2018 Urine Culture Ucult Complete NO Growth Day 2 02/22/2018 Tibc Ord40 Iron 62 ug/dl 02/21/2018 Tibc Ord40 UIBC 449 ug/dL 02/21/2018 Tibc Ord40 TIBC 511 ug/dL 02/21/2018 Tibc Ord40 Fe-%Sat 12.1 % 02/21/2018 Ferritin Ord22 FERRITIN 14.9 ng/mL 02/21/2018 Cbc With Differential Ord2 WBC 8.62 K/ul 02/20/2018 Cbc With Differential Ord2 RBC 4.08 M/ul 02/20/2018 Cbc With Differential Ord2 HGB 10.7 g/dl 02/20/2018 Cbc With Differential Ord2 Neut% 74.4 % 02/20/2018 Cbc With Differential Ord2 HCT 35.6 % 02/20/2018 Cbc With Differential Ord2 Lymph% 18.7 % 02/20/2018 Cbc With Differential Ord2 MCV 87.3 fl 02/20/2018 Cbc With Differential Ord2 MCH 26.2 pg 02/20/2018 Cbc With Differential Ord2 [place]% 5.7 % 02/20/2018 Cbc With Differential Ord2 MCHC 30.1 pg 02/20/2018 Cbc With Differential Ord2 Eos% 1.0 % 02/20/2018 Cbc With Differential Ord2 PLT 341 K/ul 02/20/2018 Cbc With Differential Ord2 Baso% 0.2 % 02/20/2018 Cbc With Differential Ord2 RDW 16.7 % 02/20/2018 Cbc With Differential Ord2 Neut ABS# 6.41 K/ul 02/20/2018 Cbc With Differential Ord2 Lymph ABS# 1.61 K/ul 02/20/2018 Cbc With Differential Ord2 [place] ABS# 0.5 K/ul 02/20/2018 Cbc With Differential Ord2 Eos ABS# 0.1 K/ul 02/20/2018 Cbc With Differential Ord2 Baso ABS# 0.0 K/ul 02/20/2018 Comp Metabolic Xpm576 NA 134 mEq/L 02/20/2018 Comp Metabolic Kdz002 K 3.9 mEq/L 02/20/2018 Comp Metabolic Gbh708 CL 90 mEq/L 02/20/2018 Comp Metabolic Peq958 CO2 32.0 mEq/L 02/20/2018 Comp Metabolic Oye242 ANION GAP 16 02/20/2018 Comp Metabolic Buj819 GLUCOSE 287 mg/dL 02/20/2018 Comp Metabolic Qop074 Creat 0.8 mg/dL 02/20/2018 Comp Metabolic Cxg248 eGFR 72 ml/min/1.73m2 02/20/2018 Comp Metabolic Oez040 BUN 13 mg/dL 02/20/2018 Comp Metabolic Cum379 B/C Ratio 15.5 Ratio 02/20/2018 Comp Metabolic Grg187 CALCIUM 9.0 mg/dL 02/20/2018 Comp Metabolic Euk261 ALK PHOS 120 U/L 02/20/2018 Comp Metabolic Aaq478 AST(SGOT) 21 U/L 02/20/2018 Comp Metabolic Rjx885 ALT(SGPT) 17 U/L 02/20/2018 Comp Metabolic Eep083 BILI T 0.4 mg/dL 02/20/2018 Comp Metabolic Hlu719 ALBUMIN 3.8 g/dL 02/20/2018 Comp Metabolic Ldl220 TPRO 6.9 g/dL 02/20/2018 Comp Metabolic Xqr136 GLOB 3.1 g/dL 02/20/2018 Comp Metabolic Ejb834 A/G Ratio 1.3 Ratio 02/20/2018 Comp Metabolic Iwe643 Osmo 279 mOsmo 02/20/2018 Vitamin D 25 Oh Vez3647 VITAMIN D, 25 HYDROXY 26.48 ng/mL Digoxin Ord9 DIGOXIN 0.7 NG/ML 02/20/2018 Culture Urine [id number] URINE CULTURE SEE NOTES 12/01/2017 Urine Culture Ucult Complete >100,000 col/ml aerobic growth sent to ref lab 11/29/2017 Comp Metabolic Ald548 NA 135 mEq/L 08/21/2017 Comp Metabolic Tib762 K 4.6 mEq/L 08/21/2017 Comp Metabolic Vzn715 CL 92 mEq/L 08/21/2017 Comp Metabolic Wdj238 CO2 32.0 mEq/L 08/21/2017 Comp Metabolic Kuf981 ANION GAP 16 08/21/2017 Comp Metabolic Mgi696 GLUCOSE 298 mg/dL 08/21/2017 Comp Metabolic Bnp706 Creat 1.1 mg/dL 08/21/2017 Comp Metabolic Rrs844 eGFR 54 ml/min/1.73m2 08/21/2017 Comp Metabolic Vkr138 BUN 22 mg/dL 08/21/2017 Comp Metabolic Vra354 B/C Ratio 20.6 Ratio 08/21/2017 Comp Metabolic Nbj213 CALCIUM 9.3 mg/dL 08/21/2017 Comp Metabolic Fyg508 ALK PHOS 145 U/L 08/21/2017 Comp Metabolic Qnw522 AST(SGOT) 31 U/L 08/21/2017 Comp Metabolic Ibg545 ALT(SGPT) 19 U/L 08/21/2017 Comp Metabolic Hmw241 BILI T 0.3 mg/dL 08/21/2017 Comp Metabolic Ikf849 ALBUMIN 3.8 g/dL 08/21/2017 Comp Metabolic Faz731 TPRO 7.1 g/dL 08/21/2017 Comp Metabolic Mpe732 GLOB 3.3 g/dL 08/21/2017 Comp Metabolic Son212 A/G Ratio 1.2 Ratio 08/21/2017 Comp Metabolic Oda569 Osmo 285 mOsmo 08/21/2017 Cbc With Differential Ord2 WBC 9.80 K/ul 08/18/2017 Cbc With Differential Ord2 RBC 4.30 M/ul 08/18/2017 Cbc With Differential Ord2 HGB 12.0 g/dl 08/18/2017 Cbc With Differential Ord2 HCT 37.9 % 08/18/2017 Cbc With Differential Ord2 Neut% 69.1 % 08/18/2017 Cbc With Differential Ord2 Lymph% 20.9 % 08/18/2017 Cbc With Differential Ord2 MCV 88.1 fl 08/18/2017 Cbc With Differential Ord2 [place]% 6.9 % 08/18/2017 Cbc With Differential Ord2 MCH 27.9 pg 08/18/2017 Cbc With Differential Ord2 MCHC 31.7 pg 08/18/2017 Cbc With Differential Ord2 Eos% 2.7 % 08/18/2017 Cbc With Differential Ord2 Baso% 0.4 % 08/18/2017 Cbc With Differential Ord2 PLT 337 K/ul 08/18/2017 Cbc With Differential Ord2 RDW 15.4 % 08/18/2017 Cbc With Differential Ord2 Neut ABS# 6.77 K/ul 08/18/2017 Cbc With Differential Ord2 Lymph ABS# 2.05 K/ul 08/18/2017 Cbc With Differential Ord2 [place] ABS# 0.7 K/ul 08/18/2017 Cbc With Differential Ord2 Eos ABS# 0.3 K/ul 08/18/2017 Cbc With Differential Ord2 Baso ABS# 0.0 K/ul 08/18/2017 %Hba1C [id number] % HbA1c 85220-1 11.5 % 06/13/2017 %Hba1C [id number] Gluc Ave 283 mg/dL 06/13/2017 Cbc With Differential Ord2 WBC 10.57 K/ul 03/27/2017 Cbc With Differential Ord2 RBC 4.31 M/ul 03/27/2017 Cbc With Differential Ord2 HGB 11.9 g/dl 03/27/2017 Cbc With Differential Ord2 HCT 38.6 % 03/27/2017 Cbc With Differential Ord2 Neut% 70.7 % 03/27/2017 Cbc With Differential Ord2 MCV 89.6 fl 03/27/2017 Cbc With Differential Ord2 Lymph% 20.0 % 03/27/2017 Cbc With Differential Ord2 [place]% 7.2 % 03/27/2017 Cbc With Differential Ord2 MCH 27.6 pg 03/27/2017 Cbc With Differential Ord2 Eos% 1.7 % 03/27/2017 Cbc With Differential Ord2 MCHC 30.8 pg 03/27/2017 Cbc With Differential Ord2 PLT 365 K/ul 03/27/2017 Cbc With Differential Ord2 Baso% 0.4 % 03/27/2017 Cbc With Differential Ord2 RDW 14.9 % 03/27/2017 Cbc With Differential Ord2 Neut ABS# 7.48 K/ul 03/27/2017 Cbc With Differential Ord2 Lymph ABS# 2.11 K/ul 03/27/2017 Cbc With Differential Ord2 [place] ABS# 0.8 K/ul 03/27/2017 Cbc With Differential Ord2 Eos ABS# 0.2 K/ul 03/27/2017 Cbc With Differential Ord2 Baso ABS# 0.0 K/ul 03/27/2017 Digoxin Ord9 DIGOXIN 0.5 NG/ML 03/27/2017 Comp Metabolic Mcc348 NA 136 mEq/L 03/27/2017 Comp Metabolic Lmw715 K 4.1 mEq/L 03/27/2017 Comp Metabolic Vor609 CL 90 mEq/L 03/27/2017 Comp Metabolic Uxe370 CO2 34.0 mEq/L 03/27/2017 Comp Metabolic Cab800 ANION GAP 16 03/27/2017 Comp Metabolic Fus109 GLUCOSE 325 mg/dL 03/27/2017 Comp Metabolic Nfs183 Creat 1.0 mg/dL 03/27/2017 Comp Metabolic Orf065 eGFR 62 ml/min/1.73m2 03/27/2017 Comp Metabolic Exp732 BUN 15 mg/dL 03/27/2017 Comp Metabolic Qkf909 B/C Ratio 15.8 Ratio 03/27/2017 Comp Metabolic Ypo027 CALCIUM 9.5 mg/dL 03/27/2017 Comp Metabolic Gaw621 ALK PHOS 159 U/L 03/27/2017 Comp Metabolic Rme387 AST(SGOT) 57 U/L 03/27/2017 Comp Metabolic Sav524 ALT(SGPT) 32 U/L 03/27/2017 Comp Metabolic Tno013 BILI T 0.4 mg/dL 03/27/2017 Comp Metabolic Tov090 ALBUMIN 4.3 g/dL 03/27/2017 Comp Metabolic Uuv765 TPRO 7.3 g/dL 03/27/2017 Comp Metabolic Rmo157 GLOB 3.0 g/dL 03/27/2017 Comp Metabolic Ffb909 A/G Ratio 1.4 Ratio 03/27/2017 Comp Metabolic Mgh399 Osmo 285 mOsmo 03/27/2017 Magnesium Ord90 Mag 2.4 mg/dL 02/27/2017 Comp Metabolic Wtm486 NA 138 mEq/L 02/27/2017 Comp Metabolic Gpd281 K 4.2 mEq/L 02/27/2017 Comp Metabolic Bcl388 CL 91 mEq/L 02/27/2017 Comp Metabolic Wrk463 CO2 36.0 mEq/L 02/27/2017 Comp Metabolic Bph123 ANION GAP 15 02/27/2017 Comp Metabolic Bsp355 GLUCOSE 297 mg/dL 02/27/2017 Comp Metabolic Rie024 Creat 0.9 mg/dL 02/27/2017 Comp Metabolic Fch704 eGFR 71 ml/min/1.73m2 02/27/2017 Comp Metabolic Nul829 BUN 12 mg/dL 02/27/2017 Comp Metabolic Hgh083 B/C Ratio 14.1 Ratio 02/27/2017 Comp Metabolic Ynh460 CALCIUM 9.0 mg/dL 02/27/2017 Comp Metabolic Ifs586 ALK PHOS 146 U/L 02/27/2017 Comp Metabolic Lna716 AST(SGOT) 28 U/L 02/27/2017 Comp Metabolic Hye606 ALT(SGPT) 12 U/L 02/27/2017 Comp Metabolic Csz823 BILI T 0.3 mg/dL 02/27/2017 Comp Metabolic Rns607 ALBUMIN 3.8 g/dL 02/27/2017 Comp Metabolic Wws725 TPRO 6.6 g/dL 02/27/2017 Comp Metabolic Dlm442 GLOB 2.8 g/dL 02/27/2017 Comp Metabolic Qul211 A/G Ratio 1.3 Ratio 02/27/2017 Comp Metabolic Gik746 Osmo 286 mOsmo 02/27/2017 Digoxin Ord9 DIGOXIN <0.2 NG/ML 02/14/2017 Comp Metabolic Jmx552 NA 138 mEq/L 02/14/2017 Comp Metabolic Tla572 K 3.5 mEq/L 02/14/2017 Comp Metabolic Exp879 CL 95 mEq/L 02/14/2017 Comp Metabolic Dwj917 CO2 29.0 mEq/L 02/14/2017 Comp Metabolic Clq587 ANION GAP 18 02/14/2017 Comp Metabolic Gdy536 GLUCOSE 254 mg/dL 02/14/2017 Comp Metabolic Ock783 Creat 1.0 mg/dL 02/14/2017 Comp Metabolic Dro956 eGFR 62 ml/min/1.73m2 02/14/2017 Comp Metabolic Tho284 BUN 14 mg/dL 02/14/2017 Comp Metabolic Aeh359 B/C Ratio 14.6 Ratio 02/14/2017 Comp Metabolic Tne395 CALCIUM 8.6 mg/dL 02/14/2017 Comp Metabolic Byj885 ALK PHOS 155 U/L 02/14/2017 Comp Metabolic Ksy248 AST(SGOT) 42 U/L 02/14/2017 Comp Metabolic Nwl106 ALT(SGPT) 28 U/L 02/14/2017 Comp Metabolic Key395 BILI T 0.3 mg/dL 02/14/2017 Comp Metabolic Stt757 ALBUMIN 3.6 g/dL 02/14/2017 Comp Metabolic Fjf999 TPRO 6.2 g/dL 02/14/2017 Comp Metabolic Olw401 GLOB 2.6 g/dL 02/14/2017 Comp Metabolic Qyn034 A/G Ratio 1.4 Ratio 02/14/2017 Comp Metabolic Gfu631 Osmo 285 mOsmo 02/14/2017 Vitamin D 25 Oh Jrb9624 VITAMIN D, 25 HYDROXY 8.99 ng/mL Tsh Ord6 hTSH II 3.30 uIU/mL 01/16/2017 Cbc With Differential Ord2 WBC 8.12 K/ul 01/16/2017 Cbc With Differential Ord2 RBC 4.32 M/ul 01/16/2017 Cbc With Differential Ord2 HGB 12.1 g/dl 01/16/2017 Cbc With Differential Ord2 HCT 38.7 % 01/16/2017 Cbc With Differential Ord2 Neut% 73.2 % 01/16/2017 Cbc With Differential Ord2 Lymph% 17.5 % 01/16/2017 Cbc With Differential Ord2 MCV 89.6 fl 01/16/2017 Cbc With Differential Ord2 MCH 28.0 pg 01/16/2017 Cbc With Differential Ord2 [place]% 7.3 % 01/16/2017 Cbc With Differential Ord2 Eos% 1.6 % 01/16/2017 Cbc With Differential Ord2 MCHC 31.3 pg 01/16/2017 Cbc With Differential Ord2 Baso% 0.4 % 01/16/2017 Cbc With Differential Ord2 PLT 344 K/ul 01/16/2017 Cbc With Differential Ord2 RDW 14.2 % 01/16/2017 Cbc With Differential Ord2 Neut ABS# 5.95 K/ul 01/16/2017 Cbc With Differential Ord2 Lymph ABS# 1.42 K/ul 01/16/2017 Cbc With Differential Ord2 [place] ABS# 0.6 K/ul 01/16/2017 Cbc With Differential Ord2 Eos ABS# 0.1 K/ul 01/16/2017 Cbc With Differential Ord2 Baso ABS# 0.0 K/ul 01/16/2017 Sed Rate Ord21 ESR 33 mm/hr 01/16/2017 C-Reactive Protein Qnt Crqnt CRP 3.3 mg/dl 01/16/2017 Free T4 Zvv738 FREE T4 0.81 ng/dL 01/16/2017 %Hba1C Amx935 % HbA1c 63195-0 12.4 % 01/16/2017 %Hba1C Ssw226 Gluc Ave 309 mg/dL 01/16/2017 Comp Metabolic Qls078 NA 134 mEq/L 01/16/2017 Comp Metabolic Jfm263 K 4.0 mEq/L 01/16/2017 Comp Metabolic Bsf875 CL 89 mEq/L 01/16/2017 Comp Metabolic Yfj699 CO2 30.0 mEq/L 01/16/2017 Comp Metabolic Oxw495 ANION GAP 19 01/16/2017 Comp Metabolic Lij814 GLUCOSE 496 Result Verified By Repeat Analysis mg/dL 01/16/2017 Comp Metabolic Cja697 Creat 0.8 mg/dL 01/16/2017 Comp Metabolic Gff688 eGFR 73 ml/min/1.73m2 01/16/2017 Comp Metabolic Cjc716 BUN 13 mg/dL 01/16/2017 Comp Metabolic Era384 B/C Ratio 15.7 Ratio 01/16/2017 Comp Metabolic Eiv015 CALCIUM 8.8 mg/dL 01/16/2017 Comp Metabolic Xva532 ALK PHOS 171 U/L 01/16/2017 Comp Metabolic Zao753 AST(SGOT) 54 U/L 01/16/2017 Comp Metabolic Guk254 ALT(SGPT) 32 U/L 01/16/2017 Comp Metabolic Zrd543 BILI T 0.3 mg/dL 01/16/2017 Comp Metabolic Hns269 ALBUMIN 3.9 g/dL 01/16/2017 Comp Metabolic Hhg841 TPRO 6.5 g/dL 01/16/2017 Comp Metabolic Tyx405 GLOB 2.6 g/dL 01/16/2017 Comp Metabolic Eod285 A/G Ratio 1.5 Ratio 01/16/2017 Comp Metabolic Nbh464 Osmo 290 mOsmo 01/16/2017 Comp Metabolic Pvr296 NA 135 mEq/L 09/14/2016 Comp Metabolic Skd614 K 5.2 mEq/L 09/14/2016 Comp Metabolic Mvk229 CL 93 mEq/L 09/14/2016 Comp Metabolic Sym775 CO2 26.0 mEq/L 09/14/2016 Comp Metabolic Zmt445 ANION GAP 21 09/14/2016 Comp Metabolic Ogo100 GLUCOSE 326 mg/dL 09/14/2016 Comp Metabolic Nfy805 Creat 1.0 mg/dL 09/14/2016 Comp Metabolic Hsc135 eGFR 57 ml/min/1.73m2 09/14/2016 Comp Metabolic Mpc085 BUN 16 mg/dL 09/14/2016 Comp Metabolic Pwk179 B/C Ratio 15.5 Ratio 09/14/2016 Comp Metabolic Omp117 CALCIUM 9.2 mg/dL 09/14/2016 Comp Metabolic Tzz553 ALK PHOS 160 U/L 09/14/2016 Comp Metabolic Xnh964 AST(SGOT) 49 U/L 09/14/2016 Comp Metabolic Bgs869 ALT(SGPT) 32 U/L 09/14/2016 Comp Metabolic Gru048 BILI T 0.4 mg/dL 09/14/2016 Comp Metabolic Vjr125 ALBUMIN 4.0 g/dL 09/14/2016 Comp Metabolic Wid320 TPRO 7.3 g/dL 09/14/2016 Comp Metabolic Xdu496 GLOB 3.3 g/dL 09/14/2016 Comp Metabolic Izk378 A/G Ratio 1.2 Ratio 09/14/2016 Comp Metabolic Pee110 Osmo 284 mOsmo 09/14/2016 Cbc With Differential Ord2 WBC 10.58 K/ul 09/14/2016 Cbc With Differential Ord2 RBC 4.75 M/ul 09/14/2016 Cbc With Differential Ord2 HGB 13.4 g/dl 09/14/2016 Cbc With Differential Ord2 HCT 41.3 % 09/14/2016 Cbc With Differential Ord2 Neut% 69.6 % 09/14/2016 Cbc With Differential Ord2 Lymph% 19.8 % 09/14/2016 Cbc With Differential Ord2 MCV 86.9 fl 09/14/2016 Cbc With Differential Ord2 [place]% 6.2 % 09/14/2016 Cbc With Differential Ord2 MCH 28.2 pg 09/14/2016 Cbc With Differential Ord2 Eos% 1.8 % 09/14/2016 Cbc With Differential Ord2 MCHC 32.4 pg 09/14/2016 Cbc With Differential Ord2 Baso% 2.6 % 09/14/2016 Cbc With Differential Ord2 PLT 297 K/ul 09/14/2016 Cbc With Differential Ord2 Neut ABS# 7.37 K/ul 09/14/2016 Cbc With Differential Ord2 RDW 16.8 % 09/14/2016 Cbc With Differential Ord2 Lymph ABS# 2.09 K/ul 09/14/2016 Cbc With Differential Ord2 [place] ABS# 0.7 K/ul 09/14/2016 Cbc With Differential Ord2 Eos ABS# 0.2 K/ul 09/14/2016 Cbc With Differential Ord2 Baso ABS# 0.3 K/ul 09/14/2016 %Hba1C Ctt430 % HbA1c 74961-1 10.7 % 09/14/2016 %Hba1C Chq689 Gluc Ave 260 mg/dL 09/14/2016 Manual Differential Ord52 D-Neutr 62 % 09/14/2016 Manual Differential Ord52 D-[place] 1 % 09/14/2016 Manual Differential Ord52 D-Lymph 34 % 09/14/2016 Manual Differential Ord52 D-Eos 2 % 09/14/2016 Manual Differential Ord52 D-[place] 1 % 09/14/2016 Comp Metabolic Ygx286 NA 134 mEq/L 08/10/2016 Comp Metabolic Hxu635 K 5.0 mEq/L 08/10/2016 Comp Metabolic Cbc135 CL 91 mEq/L 08/10/2016 Comp Metabolic Msr523 CO2 29.0 mEq/L 08/10/2016 Comp Metabolic Buk221 ANION GAP 19 08/10/2016 Comp Metabolic Gxt303 GLUCOSE 291 mg/dL 08/10/2016 Comp Metabolic Srf135 Creat 0.9 mg/dL 08/10/2016 Comp Metabolic Cks475 eGFR 68 ml/min/1.73m2 08/10/2016 Comp Metabolic Wck289 BUN 20 mg/dL 08/10/2016 Comp Metabolic Vyg535 B/C Ratio 22.7 Ratio 08/10/2016 Comp Metabolic Nly947 CALCIUM 9.7 mg/dL 08/10/2016 Comp Metabolic Eqr135 ALK PHOS 144 U/L 08/10/2016 Comp Metabolic Ypm811 AST(SGOT) 62 U/L 08/10/2016 Comp Metabolic Cky491 ALT(SGPT) 37 U/L 08/10/2016 Comp Metabolic Pbc403 BILI T 0.3 mg/dL 08/10/2016 Comp Metabolic Lvx902 ALBUMIN 4.3 g/dL 08/10/2016 Comp Metabolic Tkq762 TPRO 7.3 g/dL 08/10/2016 Comp Metabolic Ocp441 GLOB 3.0 g/dL 08/10/2016 Comp Metabolic Exn709 A/G Ratio 1.5 Ratio 08/10/2016 Comp Metabolic Vdp179 Osmo 282 mOsmo 08/10/2016 Free T4 Evw925 FREE T4 0.89 ng/dL 08/09/2016 Tsh Ord6 hTSH II 4.06 uIU/mL 08/09/2016 Cbc With Differential Ord2 WBC 13.89 K/ul 08/09/2016 Cbc With Differential Ord2 RBC 5.05 M/ul 08/09/2016 Cbc With Differential Ord2 HGB 13.7 g/dl 08/09/2016 Cbc With Differential Ord2 HCT 43.7 % 08/09/2016 Cbc With Differential Ord2 Neut% 75.8 % 08/09/2016 Cbc With Differential Ord2 MCV 86.5 fl 08/09/2016 Cbc With Differential Ord2 Lymph% 17.7 % 08/09/2016 Cbc With Differential Ord2 MCH 27.1 pg 08/09/2016 Cbc With Differential Ord2 [place]% 5.4 % 08/09/2016 Cbc With Differential Ord2 Eos% 0.9 % 08/09/2016 Cbc With Differential Ord2 MCHC 31.4 pg 08/09/2016 Cbc With Differential Ord2 PLT 493 K/ul 08/09/2016 Cbc With Differential Ord2 Baso% 0.2 % 08/09/2016 Cbc With Differential Ord2 RDW 18.7 % 08/09/2016 Cbc With Differential Ord2 Neut ABS# 10.52 K/ul 08/09/2016 Cbc With Differential Ord2 Lymph ABS# 2.46 K/ul 08/09/2016 Cbc With Differential Ord2 [place] ABS# 0.8 K/ul 08/09/2016 Cbc With Differential Ord2 Eos ABS# 0.1 K/ul 08/09/2016 Cbc With Differential Ord2 Baso ABS# 0.0 K/ul 08/09/2016 Cbc With Differential Ord2 WBC 10.00 K/ul 04/20/2016 Cbc With Differential Ord2 RBC 4.43 M/ul 04/20/2016 Cbc With Differential Ord2 HGB 12.1 g/dl 04/20/2016 Cbc With Differential Ord2 HCT 38.7 % 04/20/2016 Cbc With Differential Ord2 Neut% 65.2 % 04/20/2016 Cbc With Differential Ord2 MCV 87.4 fl 04/20/2016 Cbc With Differential Ord2 Lymph% 26.3 % 04/20/2016 Cbc With Differential Ord2 [place]% 6.3 % 04/20/2016 Cbc With Differential Ord2 MCH 27.3 pg 04/20/2016 Cbc With Differential Ord2 Eos% 2.0 % 04/20/2016 Cbc With Differential Ord2 MCHC 31.3 pg 04/20/2016 Cbc With Differential Ord2 Baso% 0.2 % 04/20/2016 Cbc With Differential Ord2 PLT 365 K/ul 04/20/2016 Cbc With Differential Ord2 Neut ABS# 6.52 K/ul 04/20/2016 Cbc With Differential Ord2 RDW 15.2 % 04/20/2016 Cbc With Differential Ord2 Lymph ABS# 2.63 K/ul 04/20/2016 Cbc With Differential Ord2 [place] ABS# 0.6 K/ul 04/20/2016 Cbc With Differential Ord2 Eos ABS# 0.2 K/ul 04/20/2016 Cbc With Differential Ord2 Baso ABS# 0.0 K/ul 04/20/2016 Comp Metabolic Ybb310 NA 133 mEq/L 04/11/2016 Comp Metabolic Evv673 K 4.1 mEq/L 04/11/2016 Comp Metabolic Xij285 CL 92 mEq/L 04/11/2016 Comp Metabolic Feu591 CO2 30.0 mEq/L 04/11/2016 Comp Metabolic Ptu817 ANION GAP 15 04/11/2016 Comp Metabolic Zjl128 GLUCOSE 414 mg/dL 04/11/2016 Comp Metabolic Fve818 Creat 0.9 mg/dL 04/11/2016 Comp Metabolic Lra510 eGFR 65 ml/min/1.73m2 04/11/2016 Comp Metabolic Ald497 BUN 22 mg/dL 04/11/2016 Comp Metabolic Vfo152 B/C Ratio 23.9 Ratio 04/11/2016 Comp Metabolic Gcs210 CALCIUM 9.2 mg/dL 04/11/2016 Comp Metabolic Ghz171 ALK PHOS 145 U/L 04/11/2016 Comp Metabolic Dri133 AST(SGOT) 22 U/L 04/11/2016 Comp Metabolic Zss087 ALT(SGPT) 21 U/L 04/11/2016 Comp Metabolic Zvv578 BILI T 0.3 mg/dL 04/11/2016 Comp Metabolic Rar264 ALBUMIN 3.9 g/dL 04/11/2016 Comp Metabolic Zlm057 TPRO 6.8 g/dL 04/11/2016 Comp Metabolic Htn069 GLOB 3.0 g/dL 04/11/2016 Comp Metabolic Tod669 A/G Ratio 1.3 Ratio 04/11/2016 Comp Metabolic Nxl904 Osmo 287 mOsmo 04/11/2016 Cbc With Differential Ord2 WBC 9.53 K/ul 04/11/2016 Cbc With Differential Ord2 RBC 4.42 M/ul 04/11/2016 Cbc With Differential Ord2 HGB 12.2 g/dl 04/11/2016 Cbc With Differential Ord2 HCT 39.3 % 04/11/2016 Cbc With Differential Ord2 Neut% 68.8 % 04/11/2016 Cbc With Differential Ord2 Lymph% 21.9 % 04/11/2016 Cbc With Differential Ord2 MCV 88.9 fl 04/11/2016 Cbc With Differential Ord2 MCH 27.6 pg 04/11/2016 Cbc With Differential Ord2 [place]% 6.9 % 04/11/2016 Cbc With Differential Ord2 Eos% 2.1 % 04/11/2016 Cbc With Differential Ord2 MCHC 31.0 pg 04/11/2016 Cbc With Differential Ord2 Baso% 0.3 % 04/11/2016 Cbc With Differential Ord2 PLT 307 K/ul 04/11/2016 Cbc With Differential Ord2 Neut ABS# 6.55 K/ul 04/11/2016 Cbc With Differential Ord2 RDW 15.1 % 04/11/2016 Cbc With Differential Ord2 Lymph ABS# 2.09 K/ul 04/11/2016 Cbc With Differential Ord2 [place] ABS# 0.7 K/ul 04/11/2016 Cbc With Differential Ord2 Eos ABS# 0.2 K/ul 04/11/2016 Cbc With Differential Ord2 Baso ABS# 0.0 K/ul 04/11/2016 Comp Metabolic Mjz950 NA 136 mEq/L 02/26/2016 Comp Metabolic Xrj469 K 3.9 mEq/L 02/26/2016 Comp Metabolic Jai542 CL 95 mEq/L 02/26/2016 Comp Metabolic Seq842 CO2 29.0 mEq/L 02/26/2016 Comp Metabolic Yuv451 ANION GAP 16 02/26/2016 Comp Metabolic Vbg458 GLUCOSE 277 mg/dL 02/26/2016 Comp Metabolic Ilb494 Creat 0.7 mg/dL 02/26/2016 Comp Metabolic Iox552 eGFR 88 ml/min/1.73m2 02/26/2016 Comp Metabolic Avf996 BUN 11 mg/dL 02/26/2016 Comp Metabolic Nij900 B/C Ratio 15.5 Ratio 02/26/2016 Comp Metabolic Cay875 CALCIUM 8.8 mg/dL 02/26/2016 Comp Metabolic Jjh636 ALK PHOS 119 U/L 02/26/2016 Comp Metabolic Lzg264 AST(SGOT) 25 U/L 02/26/2016 Comp Metabolic Vwk675 ALT(SGPT) 20 U/L 02/26/2016 Comp Metabolic Moo833 BILI T 0.3 mg/dL 02/26/2016 Comp Metabolic Lsa183 ALBUMIN 3.8 g/dL 02/26/2016 Comp Metabolic Wwp384 TPRO 6.6 g/dL 02/26/2016 Comp Metabolic Tzh138 GLOB 2.8 g/dL 02/26/2016 Comp Metabolic Enc814 A/G Ratio 1.3 Ratio 02/26/2016 Comp Metabolic Oso763 Osmo 281 mOsmo 02/26/2016 Cbc With Differential Ord2 WBC 12.43 K/ul 02/26/2016 Cbc With Differential Ord2 RBC 4.06 M/ul 02/26/2016 Cbc With Differential Ord2 HGB 12.0 g/dl 02/26/2016 Cbc With Differential Ord2 HCT 38.4 % 02/26/2016 Cbc With Differential Ord2 Neut% 69.4 % 02/26/2016 Cbc With Differential Ord2 Lymph% 22.4 % 02/26/2016 Cbc With Differential Ord2 MCV 94.6 fl 02/26/2016 Cbc With Differential Ord2 MCH 29.6 pg 02/26/2016 Cbc With Differential Ord2 [place]% 6.4 % 02/26/2016 Cbc With Differential Ord2 MCHC 31.3 pg 02/26/2016 Cbc With Differential Ord2 Eos% 1.4 % 02/26/2016 Cbc With Differential Ord2 Baso% 0.4 % 02/26/2016 Cbc With Differential Ord2 PLT 371 K/ul 02/26/2016 Cbc With Differential Ord2 RDW 15.1 % 02/26/2016 Cbc With Differential Ord2 Neut ABS# 8.63 K/ul 02/26/2016 Cbc With Differential Ord2 Lymph ABS# 2.78 K/ul 02/26/2016 Cbc With Differential Ord2 [place] ABS# 0.8 K/ul 02/26/2016 Cbc With Differential Ord2 Eos ABS# 0.2 K/ul 02/26/2016 Cbc With Differential Ord2 Baso ABS# 0.1 K/ul 02/26/2016 %Hba1C Dor471 % HbA1c 24863-3 9.6 % 02/26/2016 %Hba1C Wit260 Gluc Ave 229 mg/dL 02/26/2016 Comp Metabolic Wpb432 NA 138 mEq/L 11/10/2015 Comp Metabolic Vcj157 K 4.5 mEq/L 11/10/2015 Comp Metabolic Hby374 CL 99 mEq/L 11/10/2015 Comp Metabolic Yke942 CO2 34.0 mEq/L 11/10/2015 Comp Metabolic Qmi575 ANION GAP 10 11/10/2015 Comp Metabolic Phy335 GLUCOSE 167 mg/dL 11/10/2015 Comp Metabolic Nkh311 Creat 0.8 mg/dL 11/10/2015 Comp Metabolic Diw708 eGFR 78 ml/min/1.73m2 11/10/2015 Comp Metabolic Ycx725 BUN 22 mg/dL 11/10/2015 Comp Metabolic Sdt326 B/C Ratio 27.8 Ratio 11/10/2015 Comp Metabolic Kkz202 CALCIUM 8.5 mg/dL 11/10/2015 Comp Metabolic Dcx521 ALK PHOS 130 U/L 11/10/2015 Comp Metabolic Cbk747 AST(SGOT) 56 U/L 11/10/2015 Comp Metabolic Dii750 ALT(SGPT) 51 U/L 11/10/2015 Comp Metabolic Yux718 BILI T 0.5 mg/dL 11/10/2015 Comp Metabolic Ezd507 ALBUMIN 3.5 g/dL 11/10/2015 Comp Metabolic Jix079 TPRO 5.8 g/dL 11/10/2015 Comp Metabolic Mtz741 GLOB 2.3 g/dL 11/10/2015 Comp Metabolic Gxd386 A/G Ratio 1.5 Ratio 11/10/2015 Comp Metabolic Yqi251 Osmo 283 mOsmo 11/10/2015 Cbc With Differential Ord2 WBC 11.14 K/ul 11/10/2015 Cbc With Differential Ord2 RBC 4.35 M/ul 11/10/2015 Cbc With Differential Ord2 HGB 12.2 g/dl 11/10/2015 Cbc With Differential Ord2 HCT 40.5 % 11/10/2015 Cbc With Differential Ord2 Neut% 73.7 % 11/10/2015 Cbc With Differential Ord2 Lymph% 17.2 % 11/10/2015 Cbc With Differential Ord2 MCV 93.1 fl 11/10/2015 Cbc With Differential Ord2 [place]% 7.7 % 11/10/2015 Cbc With Differential Ord2 MCH 28.0 pg 11/10/2015 Cbc With Differential Ord2 MCHC 30.1 pg 11/10/2015 Cbc With Differential Ord2 Eos% 1.1 % 11/10/2015 Cbc With Differential Ord2 PLT 274 K/ul 11/10/2015 Cbc With Differential Ord2 Baso% 0.3 % 11/10/2015 Cbc With Differential Ord2 Neut ABS# 8.21 K/ul 11/10/2015 Cbc With Differential Ord2 RDW 16.8 % 11/10/2015 Cbc With Differential Ord2 Lymph ABS# 1.92 K/ul 11/10/2015 Cbc With Differential Ord2 [place] ABS# 0.9 K/ul 11/10/2015 Cbc With Differential Ord2 Eos ABS# 0.1 K/ul 11/10/2015 Cbc With Differential Ord2 Baso ABS# 0.0 K/ul 11/10/2015 Tsh Ord6 hTSH II 3.53 uIU/mL 08/11/2015 Cbc With Differential Ord2 WBC 11.55 K/ul 08/11/2015 Cbc With Differential Ord2 RBC 4.76 M/ul 08/11/2015 Cbc With Differential Ord2 HGB 13.6 g/dl 08/11/2015 Cbc With Differential Ord2 HCT 45.4 % 08/11/2015 Cbc With Differential Ord2 Neut% 65.2 % 08/11/2015 Cbc With Differential Ord2 Lymph% 25.4 % 08/11/2015 Cbc With Differential Ord2 MCV 95.4 fl 08/11/2015 Cbc With Differential Ord2 MCH 28.6 pg 08/11/2015 Cbc With Differential Ord2 [place]% 8.1 % 08/11/2015 Cbc With Differential Ord2 Eos% 1.0 % 08/11/2015 Cbc With Differential Ord2 MCHC 30.0 pg 08/11/2015 Cbc With Differential Ord2 PLT 442 K/ul 08/11/2015 Cbc With Differential Ord2 Baso% 0.3 % 08/11/2015 Cbc With Differential Ord2 RDW 15.5 % 08/11/2015 Cbc With Differential Ord2 Neut ABS# 7.54 K/ul 08/11/2015 Cbc With Differential Ord2 Lymph ABS# 2.93 K/ul 08/11/2015 Cbc With Differential Ord2 [place] ABS# 0.9 K/ul 08/11/2015 Cbc With Differential Ord2 Eos ABS# 0.1 K/ul 08/11/2015 Cbc With Differential Ord2 Baso ABS# 0.0 K/ul 08/11/2015 Cbc With Differential Ord2 New Analyzer Notice Please note new ref ranges starting 06-03-2015 due to implemntation of new five part differential hematolgy analyzer. 08/11/2015 Comp Metabolic Pmi109 NA 142 mEq/L 08/11/2015 Comp Metabolic Vis833 K 3.6 mEq/L 08/11/2015 Comp Metabolic Vgz301 CL 98 mEq/L 08/11/2015 Comp Metabolic Zgs859 CO2 33.0 mEq/L 08/11/2015 Comp Metabolic Orj404 ANION GAP 15 08/11/2015 Comp Metabolic Tvx727 GLUCOSE 100 mg/dL 08/11/2015 Comp Metabolic Ldw604 Creat 0.9 mg/dL 08/11/2015 Comp Metabolic Bpa545 eGFR 65 ml/min/1.73m2 08/11/2015 Comp Metabolic Dve212 BUN 15 mg/dL 08/11/2015 Comp Metabolic Pyz959 B/C Ratio 16.3 Ratio 08/11/2015 Comp Metabolic Czb816 CALCIUM 8.8 mg/dL 08/11/2015 Comp Metabolic Bbw348 ALK PHOS 171 U/L 08/11/2015 Comp Metabolic Ffs451 AST(SGOT) 76 U/L 08/11/2015 Comp Metabolic Tzs899 ALT(SGPT) 64 U/L 08/11/2015 Comp Metabolic Ykh888 BILI T 0.4 mg/dL 08/11/2015 Comp Metabolic Yqx102 ALBUMIN 4.2 g/dL 08/11/2015 Comp Metabolic Ztg157 TPRO 6.7 g/dL 08/11/2015 Comp Metabolic Ggu615 GLOB 2.6 g/dL 08/11/2015 Comp Metabolic Uyf940 A/G Ratio 1.6 Ratio 08/11/2015 Comp Metabolic Cdx612 Osmo 284 mOsmo 08/11/2015 %Hba1C Asw272 % HbA1c 26165-6 6.7 % 08/11/2015 %Hba1C Llp828 Gluc Ave 146 mg/dL 08/11/2015 Free T4 Etx235 FREE T4 1.07 ng/dL 08/11/2015 Culture Urine [id number] URINE CULTURE SEE NOTES 07/23/2015 Culture Urine [id number] Continued Results 07/23/2015 Urine Culture Ucult Complete Growth of aerobe sent to ref lab 07/21/2015 Free T4 Mia817 FREE T4 0.76 ng/dL 04/15/2015 Tsh Ord6 hTSH II 1.99 uIU/mL 04/15/2015 %Hba1C Arl914 % HbA1c 17015-4 6.7 % 04/14/2015 %Hba1C Aox058 Gluc Ave 146 mg/dL 04/14/2015 Comp Metabolic Dne975 NA 140 mEq/L 04/14/2015 Comp Metabolic Wlk827 K 4.4 mEq/L 04/14/2015 Comp Metabolic Xzb286 CL 99 mEq/L 04/14/2015 Comp Metabolic Sjv740 CO2 29.0 mEq/L 04/14/2015 Comp Metabolic Jgy861 ANION GAP 16 04/14/2015 Comp Metabolic Kbs188 GLUCOSE 100 mg/dL 04/14/2015 Comp Metabolic Tnc588 Creat 0.7 mg/dL 04/14/2015 Comp Metabolic Civ231 eGFR 91 ml/min/1.73m2 04/14/2015 Comp Metabolic Igx351 BUN 13 mg/dL 04/14/2015 Comp Metabolic Erv680 B/C Ratio 18.8 Ratio 04/14/2015 Comp Metabolic Wmt984 CALCIUM 9.1 mg/dL 04/14/2015 Comp Metabolic Suc294 ALK PHOS 138 U/L 04/14/2015 Comp Metabolic Uoa071 AST(SGOT) 22 U/L 04/14/2015 Comp Metabolic Iir675 ALT(SGPT) 22 U/L 04/14/2015 Comp Metabolic Bwg830 BILI T 0.3 mg/dL 04/14/2015 Comp Metabolic Rwx844 ALBUMIN 4.0 g/dL 04/14/2015 Comp Metabolic Buj959 TPRO 6.5 g/dL 04/14/2015 Comp Metabolic Tgh520 GLOB 2.5 g/dL 04/14/2015 Comp Metabolic Rks303 A/G Ratio 1.6 Ratio 04/14/2015 Comp Metabolic Xgf689 Osmo 280 mOsmo 04/14/2015 Cbc With Differential Ord2 WBC 9.6 K/uL 04/14/2015 Cbc With Differential Ord2 LYM 2.5 K/uL 04/14/2015 Cbc With Differential Ord2 LYM% 26.1 % 04/14/2015 Cbc With Differential Ord2 NEUT/GRAN 6.5 K/uL 04/14/2015 Cbc With Differential Ord2 NEUT/GRAN % 68.0 % 04/14/2015 Cbc With Differential Ord2 MID 0.6 K/uL 04/14/2015 Cbc With Differential Ord2 MID% 5.9 % 04/14/2015 Cbc With Differential Ord2 RBC 4.60 M/uL 04/14/2015 Cbc With Differential Ord2 HGB 12.9 g/dL 04/14/2015 Cbc With Differential Ord2 HCT 42.5 % 04/14/2015 Cbc With Differential Ord2 MCV 92 fL 04/14/2015 Cbc With Differential Ord2 MCH 28 pg 04/14/2015 Cbc With Differential Ord2 MCHC 30 g/dL 04/14/2015 Cbc With Differential Ord2 PLT 341 K/uL 04/14/2015 Cbc With Differential Ord2 RDW 16.5 % 04/14/2015 CHEM 14 3891642 AST 15 U/L 09/11/2013 CHEM 14 3715448 ALT 25 IU/L 09/11/2013 CHEM 14 8964932 BUN 29 MG/DL 09/11/2013 CHEM 14 0764779 ALBUMIN 3.8 GM/DL 09/11/2013 CHEM 14 2293575 CHLORIDE 99 MMOL/L 09/11/2013 CHEM 14 4404412 BILI TOT 0.2 MG/DL 09/11/2013 CHEM 14 1074279 ALK PHOS 118 U/L 09/11/2013 CHEM 14 8212932 SODIUM 136 MMOL/L 09/11/2013 CHEM 14 0777698 CREATININE 1.26 MG/DL 09/11/2013 CHEM 14 7603052 CALCIUM 9.0 MG/DL 09/11/2013 CHEM 14 9213809 POTASSIUM 5.0 MMOL/L 09/11/2013 CHEM 14 1198075 PROT TOT 6.2 GM/DL 09/11/2013 CHEM 14 5002193 GLUCOSE 254 MG/DL 09/11/2013 CHEM 14 7519027 BICARB 29 MMOL/L 09/11/2013 CHEM 14 7205160 ANION GAP 8 MEQ/L 09/11/2013 GFR CALC 7464464 GFR AA 52.0L ML/MIN 09/11/2013 GFR CALC 4620716 GFR NON-AA 43.0L ML/MIN 09/11/2013 FREE T4 0923554 FREE T4 1.35 NG/DL 08/02/2013 CBC 5270655 WBC 7.5 10e9/L 08/01/2013 CBC 7106922 RBC 3.88 10e12/L 08/01/2013 CBC 0786112 HGB 12.1 g/dL 08/01/2013 CBC 7578951 HCT DET 37.6 % 08/01/2013 CBC 7078000 MCV 96.9 fL 08/01/2013 CBC 9780766 MCH 31.2 pg 08/01/2013 CBC 6632382 MCHC 32.2 g/dL 08/01/2013 CBC 6634605 PLT 289 10e9/L 08/01/2013 CBC 5804643 MPV 9.6 fL 08/01/2013 CBC 1031946 JOSEFINA % 56.0 % 08/01/2013 CBC 0428170 LY % 31.6 % 08/01/2013 CBC 2394344 MON % 10.0 % 08/01/2013 CBC 0026277 EOS % 1.7 % 08/01/2013 CBC 0469581 BASO % 0.7 % 08/01/2013 CBC 2394587 RDW 15.5 % 08/01/2013 CBC 6370576 ABS JOSEFINA 4.20 10e9/L 08/01/2013 CBC 3949574 ABS LYMPH 2.37 10e9/L 08/01/2013 CBC 7802488 ABS MONO 0.75 10e9/L 08/01/2013 CBC 2324040 ABS EOS 0.13 10e9/L 08/01/2013 CBC 5354574 ABS BASO 0.05 10e9/L 08/01/2013 CBC 6697423 RDW-SD 53.5 fL 08/01/2013 TSH 1707553 TSH 6.497 uIU/ML 08/01/2013 CHEM 14 9878415 AST 53 U/L 08/01/2013 CHEM 14 0346641 ALT 36 IU/L 08/01/2013 CHEM 14 6829630 BUN 16 MG/DL 08/01/2013 CHEM 14 2186805 ALBUMIN 4.2 GM/DL 08/01/2013 CHEM 14 2283576 CHLORIDE 103 MMOL/L 08/01/2013 CHEM 14 8497977 BILI TOT 0.4 MG/DL 08/01/2013 CHEM 14 5156882 ALK PHOS 113 U/L 08/01/2013 CHEM 14 3178774 SODIUM 139 MMOL/L 08/01/2013 CHEM 14 3360016 CREATININE 0.83 MG/DL 08/01/2013 CHEM 14 0631364 CALCIUM 9.5 MG/DL 08/01/2013 CHEM 14 9692900 POTASSIUM 4.2 MMOL/L 08/01/2013 CHEM 14 9504238 PROT TOT 6.4 GM/DL 08/01/2013 CHEM 14 8879104 GLUCOSE 135 MG/DL 08/01/2013 CHEM 14 3663650 BICARB 26 MMOL/L 08/01/2013 CHEM 14 8838605 ANION GAP 10 MEQ/L 08/01/2013 A1C HPLC 1921946 A1C HPLC 81605-6 8.1 % 08/01/2013 GFR CALC 1283024 GFR AA >60 ML/MIN 08/01/2013 GFR CALC 4360182 GFR NON-AA >60 ML/MIN 08/01/2013 CBC 1675006 WBC 10.4 10e9/L 03/21/2013 CBC [id number] RBC 4.27 10e12/L 03/21/2013 CBC [id number] HGB 13.1 g/dL 03/21/2013 CBC [id number] HCT DET 41.2 % 03/21/2013 CBC [id number] MCV 96.5 fL 03/21/2013 CBC [id number] MCH 30.7 pg 03/21/2013 CBC [id number] MCHC 31.8 g/dL 03/21/2013 CBC [id number] PLT 398 10e9/L 03/21/2013 CBC [id number] MPV 10.9 fL 03/21/2013 CBC [id number] JOSEFINA % 65.4 % 03/21/2013 CBC [id number] LY % 25.6 % 03/21/2013 CBC [id number] MON % 6.7 % 03/21/2013 CBC [id number] EOS % 1.9 % 03/21/2013 CBC [id number] BASO % 0.4 % 03/21/2013 CBC [id number] RDW 14.2 % 03/21/2013 CBC [id number] ABS JOSEFINA 6.80 10e9/L 03/21/2013 CBC [id number] ABS LYMPH 2.66 10e9/L 03/21/2013 CBC [id number] ABS MONO 0.70 10e9/L 03/21/2013 CBC [id number] ABS EOS 0.20 10e9/L 03/21/2013 CBC [id number] ABS BASO 0.04 10e9/L 03/21/2013 CBC [id number] RDW-SD 48.7 fL 03/21/2013 GFR CALC [id number] GFR AA 57.0L ML/MIN 03/21/2013 GFR CALC [id number] GFR NON-AA 47.0L ML/MIN 03/21/2013 CHEM 14 [id number] AST 22 U/L 03/21/2013 CHEM 14 [id number] ALT 22 IU/L 03/21/2013 CHEM 14 [id number] BUN 29 MG/DL 03/21/2013 CHEM 14 [id number] ALBUMIN 4.1 GM/DL 03/21/2013 CHEM 14 [id number] CHLORIDE 99 MMOL/L 03/21/2013 CHEM 14 [id number] BILI TOT 0.3 MG/DL 03/21/2013 CHEM 14 [id number] ALK PHOS 123 U/L 03/21/2013 CHEM 14 [id number] SODIUM 137 MMOL/L 03/21/2013 CHEM 14 [id number] CREATININE 1.16 MG/DL 03/21/2013 CHEM 14 [id number] CALCIUM 9.1 MG/DL 03/21/2013 CHEM 14 [id number] POTASSIUM 4.1 MMOL/L 03/21/2013 CHEM 14 [id number] PROT TOT 6.7 GM/DL 03/21/2013 CHEM 14 [id number] GLUCOSE 209 MG/DL 03/21/2013 CHEM 14 [id number] BICARB 26 MMOL/L 03/21/2013 CHEM 14 [id number] ANION GAP 12 MEQ/L 03/21/2013 A1C HPLC [id number] A1C HPLC 32046-7 6.6 % 03/21/2013 GFR CALC [id number] GFR AA >60 ML/MIN 01/17/2013 GFR CALC [id number] GFR NON-AA 51.0L ML/MIN 01/17/2013 CHEM 14 [id number] AST 18 U/L 01/17/2013 CHEM 14 [id number] ALT 32 IU/L 01/17/2013 CHEM 14 [id number] BUN 22 MG/DL 01/17/2013 CHEM 14 [id number] ALBUMIN 4.1 GM/DL 01/17/2013 CHEM 14 [id number] CHLORIDE 99 MMOL/L 01/17/2013 CHEM 14 [id number] BILI TOT 0.3 MG/DL 01/17/2013 CHEM 14 5911436 ALK PHOS 110 U/L 01/17/2013 CHEM 14 9799191 SODIUM 138 MMOL/L 01/17/2013 CHEM 14 [id number] CREATININE 1.09 MG/DL 01/17/2013 CHEM 14 [id number] CALCIUM 8.8 MG/DL 01/17/2013 CHEM 14 [id number] POTASSIUM 3.5 MMOL/L 01/17/2013 CHEM 14 1274467 PROT TOT 6.1 GM/DL 01/17/2013 CHEM 14 [id number] GLUCOSE 163 MG/DL 01/17/2013 CHEM 14 [id number] BICARB 29 MMOL/L 01/17/2013 CHEM 14 6479101 ANION GAP 10 MEQ/L 01/17/2013 CBC [id number] WBC 8.0 10e9/L 01/17/2013 CBC [id number] RBC 3.85 10e12/L 01/17/2013 CBC [id number] HGB 12.6 g/dL 01/17/2013 CBC [id number] HCT DET 38.0 % 01/17/2013 CBC [id number] MCV 98.7 fL 01/17/2013 CBC [id number] MCH 32.7 pg 01/17/2013 CBC [id number] MCHC 33.2 g/dL 01/17/2013 CBC [id number] PLT 325 10e9/L 01/17/2013 CBC [id number] MPV 10.4 fL 01/17/2013 CBC [id number] JOSEFINA % 64.6 % 01/17/2013 CBC [id number] LY % 27.0 % 01/17/2013 CBC [id number] MON % 6.8 % 01/17/2013 CBC [id number] EOS % 1.4 % 01/17/2013 CBC [id number] BASO % 0.2 % 01/17/2013 CBC [id number] RDW 15.5 % 01/17/2013 CBC [id number] ABS JOSEFINA 5.17 10e9/L 01/17/2013 CBC [id number] ABS LYMPH 2.16 10e9/L 01/17/2013 CBC [id number] ABS MONO 0.54 10e9/L 01/17/2013 CBC [id number] ABS EOS 0.11 10e9/L 01/17/2013 CBC [id number] ABS BASO 0.02 10e9/L 01/17/2013 CBC [id number] RDW-SD 54.3 fL 01/17/2013 TSH [id number] TSH 3.683 uIU/ML 12/31/2012 FREE T4 [id number] FREE T4 1.34 NG/DL 12/31/2012 A1C HPLC [id number] A1C HPLC 42065-8 6.6 % 12/21/2012 CHEM 14 [id number] AST 16 U/L 12/20/2012 CHEM 14 [id number] ALT 36 IU/L 12/20/2012 CHEM 14 [id number] BUN 26 MG/DL 12/20/2012 CHEM 14 [id number] ALBUMIN 4.2 GM/DL 12/20/2012 CHEM 14 [id number] CHLORIDE 103 MMOL/L 12/20/2012 CHEM 14 [id number] BILI TOT 0.4 MG/DL 12/20/2012 CHEM 14 9384752 ALK PHOS 107 U/L 12/20/2012 CHEM 14 1419485 SODIUM 141 MMOL/L 12/20/2012 CHEM 14 [id number] CREATININE 0.73 MG/DL 12/20/2012 CHEM 14 2107659 CALCIUM 9.2 MG/DL 12/20/2012 CHEM 14 [id number] POTASSIUM 4.3 MMOL/L 12/20/2012 CHEM 14 [id number] PROT TOT 6.2 GM/DL 12/20/2012 CHEM 14 [id number] GLUCOSE 135 MG/DL 12/20/2012 CHEM 14 1583624 BICARB 32 MMOL/L 12/20/2012 CHEM 14 3323906 ANION GAP 6 MEQ/L 12/20/2012 GFR CALC [id number] GFR AA >60 ML/MIN 12/20/2012 GFR CALC [id number] GFR NON-AA >60 ML/MIN 12/20/2012 CBC [id number] WBC 8.4 10e9/L 12/20/2012 CBC [id number] RBC 4.30 10e12/L 12/20/2012 CBC [id number] HGB 13.9 g/dL 12/20/2012 CBC [id number] HCT DET 41.8 % 12/20/2012 CBC [id number] MCV 97.2 fL 12/20/2012 CBC [id number] MCH 32.3 pg 12/20/2012 CBC [id number] MCHC 33.3 g/dL 12/20/2012 CBC [id number] PLT 358 10e9/L 12/20/2012 CBC [id number] MPV 10.2 fL 12/20/2012 CBC [id number] JOSEFINA % 63.3 % 12/20/2012 CBC [id number] LY % 28.9 % 12/20/2012 CBC [id number] MON % 6.3 % 12/20/2012 CBC [id number] EOS % 1.1 % 12/20/2012 CBC [id number] BASO % 0.4 % 12/20/2012 CBC [id number] RDW 15.3 % 12/20/2012 CBC [id number] ABS JOSEFINA 5.32 10e9/L 12/20/2012 CBC [id number] ABS LYMPH 2.43 10e9/L 12/20/2012 CBC [id number] ABS MONO 0.53 10e9/L 12/20/2012 CBC [id number] ABS EOS 0.09 10e9/L 12/20/2012 CBC [id number] ABS BASO 0.03 10e9/L 12/20/2012 CBC [id number] RDW-SD 51.9 fL 12/20/2012 GFR CALC [id number] GFR AA >60 ML/MIN 02/01/2012 GFR CALC [id number] GFR NON-AA >60 ML/MIN 02/01/2012 CBC [id number] WBC 10.8 10e9/L 02/01/2012 CBC [id number] RBC 3.86 10e12/L 02/01/2012 CBC [id number] HGB 11.8 g/dL 02/01/2012 CBC [id number] HCT DET 36.3 % 02/01/2012 CBC [id number] MCV 94.0 fL 02/01/2012 CBC [id number] MCH 30.6 pg 02/01/2012 CBC [id number] MCHC 32.5 g/dL 02/01/2012 CBC 6750095 PLT 321 10e9/L 02/01/2012 CBC [id number] MPV 10.3 fL 02/01/2012 CBC [id number] JOSEFINA % 75.9 % 02/01/2012 CBC [id number] LY % 16.1 % 02/01/2012 CBC [id number] MON % 6.8 % 02/01/2012 CBC [id number] EOS % 1.0 % 02/01/2012 CBC [id number] BASO % 0.2 % 02/01/2012 CBC [id number] RDW 14.2 % 02/01/2012 CBC [id number] ABS JOSEFINA 8.20 10e9/L 02/01/2012 CBC [id number] ABS LYMPH 1.74 10e9/L 02/01/2012 CBC [id number] ABS MONO 0.73 10e9/L 02/01/2012 CBC [id number] ABS EOS 0.11 10e9/L 02/01/2012 CBC [id number] ABS BASO 0.02 10e9/L 02/01/2012 CBC [id number] RDW-SD 47.2 fL 02/01/2012 BRAIN PEP 7155546 BRAIN PEP FOOTNOTE pg/mL 02/01/2012 CHEM 14 8621874 AST 26 U/L 02/01/2012 CHEM 14 1294900 ALT 36 IU/L 02/01/2012 CHEM 14 7946599 BUN 29 MG/DL 02/01/2012 CHEM 14 3416399 ALBUMIN 3.7 GM/DL 02/01/2012 CHEM 14 8546513 CHLORIDE 105 MMOL/L 02/01/2012 CHEM 14 3496955 BILI TOT 0.2 MG/DL 02/01/2012 CHEM 14 8360219 ALK PHOS 89 U/L 02/01/2012 CHEM 14 1851846 SODIUM 141 MMOL/L 02/01/2012 CHEM 14 1358053 CREATININE 0.76 MG/DL 02/01/2012 CHEM 14 0328707 CALCIUM 9.0 MG/DL 02/01/2012 CHEM 14 5624375 POTASSIUM 4.8 MMOL/L 02/01/2012 CHEM 14 2562767 PROT TOT 5.5 GM/DL 02/01/2012 CHEM 14 0035907 GLUCOSE 83 MG/DL 02/01/2012 CHEM 14 3168792 BICARB 31 MMOL/L 02/01/2012 CHEM 14 8519043 ANION GAP 5 MEQ/L 02/01/2012 GFR CALC 4375065 GFR AA >60 ML/MIN 11/30/2011 GFR CALC [id number] GFR NON-AA >60 ML/MIN 11/30/2011 CHEM 14 5040594 AST 14 U/L 11/30/2011 CHEM 14 7795349 ALT 17 IU/L 11/30/2011 CHEM 14 9573068 BUN 12 MG/DL 11/30/2011 CHEM 14 1275587 ALBUMIN 4.3 GM/DL 11/30/2011 CHEM 14 4998699 CHLORIDE 104 MMOL/L 11/30/2011 CHEM 14 4899365 BILI TOT 0.3 MG/DL 11/30/2011 CHEM 14 4495069 ALK PHOS 83 U/L 11/30/2011 CHEM 14 2397230 SODIUM 143 MMOL/L 11/30/2011 CHEM 14 1713579 CREATININE 0.71 MG/DL 11/30/2011 CHEM 14 7171400 CALCIUM 9.7 MG/DL 11/30/2011 CHEM 14 4413890 POTASSIUM 4.4 MMOL/L 11/30/2011 CHEM 14 8792279 PROT TOT 6.3 GM/DL 11/30/2011 CHEM 14 7855722 GLUCOSE 107 MG/DL 11/30/2011 CHEM 14 1370415 BICARB 27 MMOL/L 11/30/2011 CHEM 14 6480008 ANION GAP 12 MEQ/L 11/30/2011 CBC 3864613 WBC 8.7 10e9/L 11/30/2011 CBC 0995743 RBC 4.40 10e12/L 11/30/2011 CBC [id number] HGB 13.6 g/dL 11/30/2011 CBC [id number] HCT DET 41.0 % 11/30/2011 CBC 7831352 MCV 93.2 fL 11/30/2011 CBC [id number] MCH 30.9 pg 11/30/2011 CBC [id number] MCHC 33.2 g/dL 11/30/2011 CBC 2589606 PLT 328 10e9/L 11/30/2011 CBC [id number] MPV 10.7 fL 11/30/2011 CBC [id number] JOSEFINA % 68.4 % 11/30/2011 CBC [id number] LY % 22.4 % 11/30/2011 CBC [id number] MON % 7.9 % 11/30/2011 CBC [id number] EOS % 1.1 % 11/30/2011 CBC [id number] BASO % 0.2 % 11/30/2011 CBC 6136913 RDW 13.5 % 11/30/2011 CBC 8762839 ABS JOSEFINA 5.95 10e9/L 11/30/2011 CBC 1374332 ABS LYMPH 1.95 10e9/L 11/30/2011 CBC 1015699 ABS MONO 0.69 10e9/L 11/30/2011 CBC [id number] ABS EOS 0.10 10e9/L 11/30/2011 CBC [id number] ABS BASO 0.02 10e9/L 11/30/2011 CBC 2486838 RDW-SD 45.0 fL 11/30/2011 URINALYSIS NONAUTO W/O SCOPE 63586 Specific [place] 1.030 DateTime(Free Text in Aprima) URINALYSIS NONAUTO W/O SCOPE 09107 PH 5 DateTime(Free Text in Aprima) URINALYSIS NONAUTO W/O SCOPE 65256 GLUCOSE neg DateTime( Free Text in Aprima) URINALYSIS NONAUTO W/O SCOPE 39074 Protein neg DateTime( Free Text in Apr[employer]) URINALYSIS NONAUTO W/O SCOPE 82561 Blood neg DateTime(Free Text in Aprima) URINALYSIS NONAUTO W/O SCOPE 53157 Bilirubin neg DateTime(Free Text in Aprima) URINALYSIS NONAUTO W/O SCOPE 95449 Ketones neg DateTime( Free Text in Aprima) URINALYSIS NONAUTO W/O SCOPE 98165 Urobilinogen neg DateTime(Free Text in Aprima) URINALYSIS NONAUTO W/O SCOPE 51796 Nitrite neg DateTime( Free Text in Aprima) URINALYSIS NONAUTO W/O SCOPE 68747 Leukocytes neg DateTime(Free Text in Aprima) UA 41688 Specific [place] 1.010 DateTime(Free Text in Aprima ) UA 33547 PH 5 DateTime(Free Text in Aprima) UA 92040 GLUCOSE N DateTime(Free Text in Aprima) UA 41367 Protein N DateTime(Free Text in Aprima) UA 43687 Blood TRACE DateTime(Free Text in Aprima) UA 37790 Bilirubin N DateTime(Free Text in Aprima) UA 24698 Ketones N DateTime(Free Text in Aprima) UA 39805 Urobilinogen N DateTime(Free Text in Aprima) UA 93105 Nitrite N DateTime(Free Text in Aprima) UA 36014 Leukocytes N DateTime(Free Text in Aprima) URINALYSIS NONAUTO W/O SCOPE 97615 Specific [place] 1.010 DateTime(Free Text in Aprima) URINALYSIS NONAUTO W/O SCOPE 08883 PH 7.5 DateTime(Free Text in Aprima) URINALYSIS NONAUTO W/O SCOPE 94950 GLUCOSE DateTime( Free Text in Aprima) URINALYSIS NONAUTO W/O SCOPE 48381 Protein trace DateTime(Free Text in Aprima) URINALYSIS NONAUTO W/O SCOPE 11058 Blood DateTime(Free Text in Aprima) URINALYSIS NONAUTO W/O SCOPE 31675 Bilirubin DateTime( Free Text in Aprima) URINALYSIS NONAUTO W/O SCOPE 16211 Ketones DateTime( Free Text in Aprima) URINALYSIS NONAUTO W/O SCOPE 24576 Urobilinogen DateTime (Free Text in Aprima) URINALYSIS NONAUTO W/O SCOPE 14053 Nitrite DateTime( Free Text in Aprima) URINALYSIS NONAUTO W/O SCOPE 49723 Leukocytes DateTime( Free Text in Aprima) URINALYSIS NONAUTO W/O SCOPE 63370 Specific [place] 1.010 DateTime(Free Text in Aprima) URINALYSIS NONAUTO W/O SCOPE 26639 PH 6 DateTime(Free Text in Aprima) URINALYSIS NONAUTO W/O SCOPE 54302 GLUCOSE DateTime( Free Text in Aprima) URINALYSIS NONAUTO W/O SCOPE 25286 Protein DateTime( Free Text in Aprima) URINALYSIS NONAUTO W/O SCOPE 28804 Blood DateTime(Free Text in Aprima) URINALYSIS NONAUTO W/O SCOPE 62154 Bilirubin DateTime( Free Text in Aprima) URINALYSIS NONAUTO W/O SCOPE 56090 Ketones DateTime( Free Text in Aprima) URINALYSIS NONAUTO W/O SCOPE 55611 Urobilinogen DateTime (Free Text in Aprima) URINALYSIS NONAUTO W/O SCOPE 03992 Nitrite DateTime( Free Text in Aprima) URINALYSIS NONAUTO W/O SCOPE 34050 Leukocytes DateTime( Free Text in Aprima) UA 55836 Specific [place] 1.020 DateTime(Free Text in Aprima ) UA 67833 PH 6 DateTime(Free Text in Aprima) UA 53296 GLUCOSE neg DateTime(Free Text in Aprima) UA 35727 Protein neg DateTime(Free Text in Aprima) UA 77946 Blood neg DateTime(Free Text in ) UA 02452 Bilirubin neg DateTime(Free Text in ) UA 13537 Ketones neg DateTime(Free Text in ) UA 78520 Urobilinogen neg DateTime(Free Text in ) UA 43351 Nitrite neg DateTime(Free Text in ) UA 42626 Leukocytes neg DateTime(Free Text in ) BMI 69875-0 39.7 DateTime(Free Text in ) Blood Pressure 1 8480-6 DateTime(Free Text in ) Weight (kg) DateTime(Free Text in ) Height (cm) DateTime(Free Text in ) Heart Rate 1 DateTime(Free Text in ) SpO2 DateTime(Free Text in ) Review of Systems System Result Effective Dates Constitutional recent illness 05/21/2018 Constitutional anorexia 05/21/2018 Constitutional night sweats 05/21/2018 Constitutional chills 05/21/2018 Constitutional diaphoresis 05/21/2018 Constitutional fatigue 05/21/2018 Constitutional No insomnia 05/21/2018 Constitutional malaise 05/21/2018 Constitutional No weight loss 05/21/2018 Constitutional No weight gain 05/21/2018 Eyes No eye discharge 05/21/2018 Eyes No eye erythema 05/21/2018 Eyes vision change 05/21/2018 Ears/Nose/Throat/Neck dizziness 2017 Ears/Nose/Throat/Neck headache 2017 Ears/Nose/Throat/Neck nasal allergies Ears/Nose/Throat/Neck nasal discharge Ears/Nose/Throat/Neck sinus congestion Cardiovascular No chest pain/pressure Cardiovascular edema 05/21/2018 Respiratory cough 05/21/2018 Gastrointestinal No abdominal pain 2017 Gastrointestinal No constipation 2017 Gastrointestinal No diarrhea 05/21/2018 Genitourinary/Nephrology No dysuria 05/21 Musculoskeletal joint complaint 2017 Musculoskeletal muscle weakness 2017 Dermatologic No rash 05/21/2018 Neurologic dizziness 05/21/2018 Neurologic gait abnormality 05/21/2018 Psychiatric anxiety 05/21/2018 Psychiatric depression 05/21/2018 Endocrine diabetes mellitus type 2 2017 Constitutional recent illness 05/16/2018 Constitutional anorexia 05/16/2018 Constitutional night sweats 05/16/2018 Constitutional diaphoresis 05/16/2018 Constitutional fatigue 05/16/2018 Constitutional insomnia 05/16/2018 Constitutional malaise 05/16/2018 Constitutional obesity 05/16/2018 Eyes No eye discharge 05/16/2018 Eyes No eye erythema 05/16/2018 Ears/Nose/Throat/Neck dizziness 2017 Ears/Nose/Throat/Neck headache 2017 Ears/Nose/Throat/Neck nasal allergies Ears/Nose/Throat/Neck nasal discharge Ears/Nose/Throat/Neck oral pain 2017 Ears/Nose/Throat/Neck otalgia 05/16/2018 Ears/Nose/Throat/Neck sinus congestion Ears/Nose/Throat/Neck sore throat 2017 Cardiovascular No chest pain/pressure Cardiovascular dyspnea 05/16/2018 Cardiovascular No edema 05/16/2018 Respiratory No cough 05/16/2018 Respiratory dyspnea on exertion 2017 Gastrointestinal No abdominal pain 2017 Gastrointestinal No constipation 2017 Gastrointestinal No diarrhea 05/16/2018 Gastrointestinal gas and bloating 2017 Gastrointestinal nausea 05/16/2018 Genitourinary/Nephrology dysuria 2017 Genitourinary/Nephrology urinary urgency 05/16/2018 Genitourinary/Nephrology urinary frequency 05/16/2018 Musculoskeletal arthralgia(s) 05/16/2018 Musculoskeletal back pain 05/16/2018 Musculoskeletal joint complaint 2017 Musculoskeletal myalgias 05/16/2018 Neurologic No alteration of consciousness 05/16/2018 Neurologic gait abnormality 05/16/2018 Psychiatric anxiety 05/16/2018 Psychiatric depression 05/16/2018 Endocrine sweating 05/16/2018 Endocrine diabetes mellitus type 2 2017 Constitutional recent illness 04/27/2018 Constitutional No anorexia 04/27/2018 Constitutional night sweats 04/27/2018 Constitutional chills 04/27/2018 Constitutional diaphoresis 04/27/2018 Constitutional fatigue 04/27/2018 Constitutional No fever 04/27/2018 Constitutional No insomnia 04/27/2018 Constitutional malaise 04/27/2018 Constitutional weight loss 04/27/2018 Constitutional No weight gain 04/27/2018 Constitutional obesity 04/27/2018 Eyes No eye discharge 04/27/2018 Eyes No eye erythema 04/27/2018 Ears/Nose/Throat/Neck dizziness 2017 Ears/Nose/Throat/Neck headache 2017 Ears/Nose/Throat/Neck nasal allergies 11/2017 Ears/Nose/Throat/Neck nasal discharge 11/2017 Ears/Nose/Throat/Neck otalgia 04/27/2018 Ears/Nose/Throat/Neck sinus congestion Ears/Nose/Throat/Neck No sore throat 11/2017 Cardiovascular No chest pain/pressure 11/2017 Cardiovascular dyspnea 04/27/2018 Cardiovascular No edema 04/27/2018 Respiratory No cough 04/27/2018 Respiratory dyspnea on exertion 2017 Gastrointestinal No abdominal pain 2017 Gastrointestinal No constipation 2017 Gastrointestinal No diarrhea 04/27/2018 Gastrointestinal gas and bloating 2017 Gastrointestinal nausea 04/27/2018 Genitourinary/Nephrology No dysuria 04/27 Musculoskeletal arthralgia(s) 04/27/2018 Musculoskeletal back pain 04/27/2018 Musculoskeletal joint complaint 2017 Musculoskeletal myalgias 04/27/2018 Dermatologic No rash 04/27/2018 Neurologic No alteration of consciousness 04/27/2018 Neurologic gait abnormality 04/27/2018 Psychiatric anxiety 04/27/2018 Psychiatric depression 04/27/2018 Endocrine sweating 04/27/2018 Endocrine diabetes mellitus type 2 2017 Hematologic/Lymphatic No abnormal ecchymoses 04/27/2018 Constitutional recent illness 04/10/2018 Constitutional anorexia 04/10/2018 Constitutional night sweats 04/10/2018 Constitutional chills 04/10/2018 Constitutional diaphoresis 04/10/2018 Constitutional fatigue 04/10/2018 Constitutional fever 04/10/2018 Constitutional insomnia 04/10/2018 Constitutional malaise 04/10/2018 Constitutional weight loss 04/10/2018 Constitutional No weight gain 04/10/2018 Constitutional obesity 04/10/2018 Eyes No eye discharge 04/10/2018 Eyes No eye erythema 04/10/2018 Ears/Nose/Throat/Neck dizziness 2017 Ears/Nose/Throat/Neck headache 2017 Ears/Nose/Throat/Neck nasal allergies Ears/Nose/Throat/Neck nasal discharge Ears/Nose/Throat/Neck oral pain 2017 Ears/Nose/Throat/Neck otalgia 04/10/2018 Ears/Nose/Throat/Neck sinus congestion Ears/Nose/Throat/Neck sore throat 2017 Cardiovascular No chest pain/pressure Cardiovascular dyspnea 04/10/2018 Cardiovascular No edema 04/10/2018 Respiratory No cough 04/10/2018 Respiratory dyspnea on exertion 2017 Gastrointestinal No abdominal pain 2017 Gastrointestinal No constipation 2017 Gastrointestinal No diarrhea 04/10/2018 Gastrointestinal gas and bloating 2017 Gastrointestinal nausea 04/10/2018 Genitourinary/Nephrology dysuria 2017 Genitourinary/Nephrology urinary urgency 04/10/2018 Genitourinary/Nephrology urinary frequency 04/10/2018 Musculoskeletal back pain 04/10/2018 Musculoskeletal joint complaint 2017 Dermatologic No rash 04/10/2018 Neurologic No alteration of consciousness 04/10/2018 Neurologic gait abnormality 04/10/2018 Psychiatric anxiety 04/10/2018 Psychiatric depression 04/10/2018 Endocrine sweating 04/10/2018 Endocrine diabetes mellitus type 2 2017 Hematologic/Lymphatic No abnormal ecchymoses 04/10/2018 Musculoskeletal arthralgia(s) 04/10/2018 Musculoskeletal myalgias 04/10/2018 Constitutional recent illness 03/12/2018 Constitutional anorexia 03/12/2018 Constitutional night sweats 03/12/2018 Constitutional chills 03/12/2018 Constitutional diaphoresis 03/12/2018 Constitutional fatigue 03/12/2018 Constitutional fever 03/12/2018 Constitutional insomnia 03/12/2018 Constitutional malaise 03/12/2018 Constitutional weight loss 03/12/2018 Constitutional No weight gain 03/12/2018 Constitutional obesity 03/12/2018 Eyes No eye discharge 03/12/2018 Eyes No eye erythema 03/12/2018 Ears/Nose/Throat/Neck dizziness 2017 Ears/Nose/Throat/Neck headache 2017 Ears/Nose/Throat/Neck nasal allergies Ears/Nose/Throat/Neck nasal discharge Ears/Nose/Throat/Neck oral pain 2017 Ears/Nose/Throat/Neck otalgia 03/12/2018 Ears/Nose/Throat/Neck sinus congestion Ears/Nose/Throat/Neck sore throat 2017 Cardiovascular No chest pain/pressure Cardiovascular dyspnea 03/12/2018 Cardiovascular No edema 03/12/2018 Respiratory No cough 03/12/2018 Respiratory dyspnea on exertion 2017 Gastrointestinal abdominal pain 2017 Gastrointestinal No constipation 2017 Gastrointestinal diarrhea 03/12/2018 Gastrointestinal nausea 03/12/2018 Genitourinary/Nephrology dysuria 2017 Genitourinary/Nephrology urinary urgency 03/12/2018 Genitourinary/Nephrology urinary frequency 03/12/2018 Musculoskeletal back pain 03/12/2018 Musculoskeletal joint complaint 2017 Dermatologic No rash 03/12/2018 Neurologic No alteration of consciousness 03/12/2018 Psychiatric anxiety 03/12/2018 Psychiatric depression 03/12/2018 Endocrine sweating 03/12/2018 Endocrine diabetes mellitus type 2 2017 Hematologic/Lymphatic No abnormal ecchymoses 03/12/2018 Gastrointestinal gas and bloating 2017 Neurologic gait abnormality 03/12/2018 Constitutional recent illness 02/20/2018 Constitutional anorexia 02/20/2018 Constitutional night sweats 02/20/2018 Constitutional chills 02/20/2018 Constitutional diaphoresis 02/20/2018 Constitutional fatigue 02/20/2018 Constitutional fever 02/20/2018 Constitutional insomnia 02/20/2018 Constitutional malaise 02/20/2018 Constitutional weight loss 02/20/2018 Constitutional No weight gain 02/20/2018 Constitutional obesity 02/20/2018 Eyes No eye erythema 02/20/2018 Eyes No eye discharge 02/20/2018 Ears/Nose/Throat/Neck dizziness 2017 Ears/Nose/Throat/Neck headache 2017 Ears/Nose/Throat/Neck nasal allergies 06/2017 Ears/Nose/Throat/Neck nasal discharge 06/2017 Ears/Nose/Throat/Neck oral pain 2017 Ears/Nose/Throat/Neck otalgia 02/20/2018 Ears/Nose/Throat/Neck sinus congestion Ears/Nose/Throat/Neck sore throat 2017 Cardiovascular No chest pain/pressure 06/2017 Cardiovascular dyspnea 02/20/2018 Cardiovascular No edema 02/20/2018 Respiratory No cough 02/20/2018 Respiratory dyspnea on exertion 2017 Gastrointestinal No abdominal pain 2017 Gastrointestinal No constipation 2017 Gastrointestinal No diarrhea 02/20/2018 Gastrointestinal nausea 02/20/2018 Genitourinary/Nephrology dysuria 2017 Genitourinary/Nephrology urinary urgency 02/20/2018 Genitourinary/Nephrology urinary frequency 02/20/2018 Musculoskeletal joint complaint 2017 Musculoskeletal back pain 02/20/2018 Dermatologic No rash 02/20/2018 Neurologic No alteration of consciousness 02/20/2018 Psychiatric anxiety 02/20/2018 Psychiatric depression 02/20/2018 Endocrine diabetes mellitus type 2 2017 Endocrine sweating 02/20/2018 Hematologic/Lymphatic No abnormal ecchymoses 02/20/2018 Constitutional No recent illness 2017 Constitutional No anorexia 11/27/2017 Constitutional No night sweats 2017 Constitutional No chills 11/27/2017 Constitutional diaphoresis 11/27/2017 Constitutional fatigue 11/27/2017 Constitutional No fever 11/27/2017 Constitutional No insomnia 11/27/2017 Constitutional No malaise 11/27/2017 Constitutional No weight loss 11/27/2017 Constitutional No weight gain 11/27/2017 Ears/Nose/Throat/Neck dizziness 2017 Ears/Nose/Throat/Neck No headache 2017 Cardiovascular No chest pain/pressure 01/2018 Cardiovascular dyspnea 11/27/2017 Respiratory cough 11/27/2017 Gastrointestinal No abdominal pain 2017 Gastrointestinal No constipation 2017 Gastrointestinal diarrhea 11/27/2017 Genitourinary/Nephrology dysuria 2017 Musculoskeletal joint complaint 2017 Dermatologic No rash 11/27/2017 Neurologic No alteration of consciousness 11/27/2017 Neurologic dizziness 11/27/2017 Psychiatric anxiety 11/27/2017 Psychiatric depression 11/27/2017 Endocrine No dry or coarse skin 2017 Endocrine diabetes mellitus type 2 2017 Eyes No eye discharge 11/27/2017 Eyes No eye erythema 11/27/2017 Constitutional No recent illness 2017 Constitutional No chills 10/27/2017 Constitutional No diaphoresis 10/27/2017 Constitutional No fatigue 10/27/2017 Eyes No blindness 10/27/2017 Ears/Nose/Throat/Neck No nasal discharge 10/27/2017 Cardiovascular No chest pain/pressure 12/2017 Respiratory No cough 10/27/2017 Gastrointestinal No abdominal pain 2017 Gastrointestinal nausea 10/27/2017 Gastrointestinal No vomiting 10/27/2017 Dermatologic No rash 10/27/2017 Neurologic No alteration of consciousness 10/27/2017 Neurologic headache 10/27/2017 Neurologic No mental status change 2017 Endocrine diabetes mellitus type 2 2017 Constitutional No recent illness 2017 Constitutional No chills 09/27/2017 Constitutional No diaphoresis 09/27/2017 Constitutional No fatigue 09/27/2017 Eyes No eye erythema 09/27/2017 Ears/Nose/Throat/Neck No nasal discharge 09/27/2017 Cardiovascular No chest pain/pressure 01/2018 Respiratory No cough 09/27/2017 Gastrointestinal No abdominal pain 2017 Dermatologic No rash 09/27/2017 Neurologic No alteration of consciousness 09/27/2017 Endocrine diabetes mellitus type 2 2017 Gastrointestinal nausea 09/27/2017 Gastrointestinal No vomiting 09/27/2017 Neurologic headache 09/27/2017 Neurologic No mental status change 2017 Constitutional recent illness 09/15/2017 Constitutional No anorexia 09/15/2017 Constitutional No night sweats 2017 Constitutional chills 09/15/2017 Constitutional diaphoresis 09/15/2017 Constitutional fatigue 09/15/2017 Constitutional No fever 09/15/2017 Constitutional No insomnia 09/15/2017 Constitutional No malaise 09/15/2017 Constitutional No weight loss 09/15/2017 Constitutional No weight gain 09/15/2017 Ears/Nose/Throat/Neck dizziness 2017 Ears/Nose/Throat/Neck No headache 2017 Cardiovascular No chest pain/pressure Cardiovascular dyspnea 09/15/2017 Respiratory cough 09/15/2017 Gastrointestinal abdominal pain 2017 Gastrointestinal No constipation 2017 Gastrointestinal diarrhea 09/15/2017 Genitourinary/Nephrology No dysuria 09/15 Musculoskeletal joint complaint 2017 Dermatologic No rash 09/15/2017 Neurologic No alteration of consciousness 09/15/2017 Neurologic dizziness 09/15/2017 Psychiatric anxiety 09/15/2017 Psychiatric depression 09/15/2017 Endocrine No dry or coarse skin 2017 Endocrine diabetes mellitus type 2 2017 Constitutional recent illness 08/18/2017 Constitutional No anorexia 08/18/2017 Constitutional No night sweats 2017 Constitutional chills 08/18/2017 Constitutional diaphoresis 08/18/2017 Constitutional fatigue 08/18/2017 Constitutional No fever 08/18/2017 Constitutional No insomnia 08/18/2017 Constitutional No malaise 08/18/2017 Constitutional No weight loss 08/18/2017 Constitutional No weight gain 08/18/2017 Ears/Nose/Throat/Neck dizziness 2017 Ears/Nose/Throat/Neck No headache 2017 Cardiovascular No chest pain/pressure Cardiovascular dyspnea 08/18/2017 Respiratory cough 08/18/2017 Gastrointestinal abdominal pain 2017 Gastrointestinal No constipation 2017 Gastrointestinal diarrhea 08/18/2017 Genitourinary/Nephrology No dysuria 08/18 Musculoskeletal joint complaint 2017 Dermatologic No rash 08/18/2017 Neurologic No alteration of consciousness 08/18/2017 Neurologic dizziness 08/18/2017 Psychiatric anxiety 08/18/2017 Psychiatric depression 08/18/2017 Endocrine No dry or coarse skin 2017 Endocrine diabetes mellitus type 2 2017 Constitutional recent illness 08/03/2017 Constitutional No anorexia 08/03/2017 Constitutional No night sweats 2017 Constitutional chills 08/03/2017 Constitutional diaphoresis 08/03/2017 Constitutional fatigue 08/03/2017 Constitutional No fever 08/03/2017 Constitutional No insomnia 08/03/2017 Constitutional No malaise 08/03/2017 Constitutional No weight loss 08/03/2017 Constitutional No weight gain 08/03/2017 Eyes eye erythema 08/03/2017 Ears/Nose/Throat/Neck dizziness 2017 Ears/Nose/Throat/Neck No headache 2017 Cardiovascular No chest pain/pressure Cardiovascular dyspnea 08/03/2017 Respiratory cough 08/03/2017 Gastrointestinal abdominal pain 2017 Gastrointestinal No constipation 2017 Gastrointestinal No diarrhea 08/03/2017 Genitourinary/Nephrology No dysuria 08/03 Musculoskeletal joint complaint 2017 Dermatologic erythema 08/03/2017 Dermatologic No rash 08/03/2017 Neurologic No alteration of consciousness 08/03/2017 Neurologic dizziness 08/03/2017 Psychiatric anxiety 08/03/2017 Psychiatric depression 08/03/2017 Endocrine No dry or coarse skin 2017 Endocrine diabetes mellitus type 2 2017 Gastrointestinal gas and bloating 2017 Gastrointestinal nausea 08/03/2017 Eyes eye erythema 07/27/2017 Constitutional recent illness 07/27/2017 Constitutional No anorexia 07/27/2017 Constitutional No night sweats 2017 Constitutional chills 07/27/2017 Constitutional diaphoresis 07/27/2017 Constitutional fatigue 07/27/2017 Constitutional No fever 07/27/2017 Constitutional No insomnia 07/27/2017 Constitutional No malaise 07/27/2017 Constitutional No weight loss 07/27/2017 Constitutional No weight gain 07/27/2017 Ears/Nose/Throat/Neck dizziness 2017 Ears/Nose/Throat/Neck No headache 2017 Cardiovascular No chest pain/pressure 12/2017 Cardiovascular dyspnea 07/27/2017 Respiratory cough 07/27/2017 Gastrointestinal abdominal pain 2017 Gastrointestinal No constipation 2017 Gastrointestinal diarrhea 07/27/2017 Genitourinary/Nephrology No dysuria 07/27 Musculoskeletal joint complaint 2017 Dermatologic No rash 07/27/2017 Dermatologic erythema 07/27/2017 Neurologic No alteration of consciousness 07/27/2017 Neurologic dizziness 07/27/2017 Psychiatric anxiety 07/27/2017 Psychiatric depression 07/27/2017 Endocrine No dry or coarse skin 2017 Endocrine diabetes mellitus type 2 2017 Constitutional No recent illness 2017 Constitutional No anorexia 06/13/2017 Constitutional night sweats 06/13/2017 Constitutional No chills 06/13/2017 Constitutional No diaphoresis 06/13/2017 Constitutional fatigue 06/13/2017 Constitutional No fever 06/13/2017 Constitutional No insomnia 06/13/2017 Constitutional malaise 06/13/2017 Constitutional No weight loss 06/13/2017 Constitutional obesity 06/13/2017 Eyes No eye discharge 06/13/2017 Eyes No eye erythema 06/13/2017 Ears/Nose/Throat/Neck No dizziness 2017 Ears/Nose/Throat/Neck dysphagia 2017 Ears/Nose/Throat/Neck headache 2017 Ears/Nose/Throat/Neck nasal allergies Ears/Nose/Throat/Neck nasal discharge Cardiovascular No chest pain/pressure Cardiovascular dyspnea 06/13/2017 Cardiovascular edema 06/13/2017 Respiratory No productive sputum 2017 Respiratory cough 06/13/2017 Gastrointestinal abdominal pain 2017 Gastrointestinal constipation 06/13/2017 Gastrointestinal diarrhea 06/13/2017 Genitourinary/Nephrology No dysuria 06/13 Genitourinary/Nephrology urinary incontinence 06/13/2017 Musculoskeletal back pain 06/13/2017 Musculoskeletal joint complaint 2017 Dermatologic No rash 06/13/2017 Dermatologic sores 06/13/2017 Neurologic No alteration of consciousness 06/13/2017 Psychiatric anxiety 06/13/2017 Psychiatric depression 06/13/2017 Endocrine sweating 06/13/2017 Constitutional No chills 04/21/2017 Constitutional No diaphoresis 04/21/2017 Constitutional fatigue 04/21/2017 Constitutional No fever 04/21/2017 Constitutional obesity 04/21/2017 Eyes No eye discharge 04/21/2017 Eyes No eye erythema 04/21/2017 Ears/Nose/Throat/Neck nasal allergies 05/2016 Ears/Nose/Throat/Neck nasal discharge 05/2016 Cardiovascular No chest pain/pressure 05/2016 Respiratory No productive sputum 2016 Respiratory cough 04/21/2017 Musculoskeletal back pain 04/21/2017 Musculoskeletal joint complaint 2016 Neurologic No alteration of consciousness 04/21/2017 Psychiatric anxiety 04/21/2017 Psychiatric depression 04/21/2017 Constitutional recent illness 04/21/2017 Constitutional malaise 04/21/2017 Ears/Nose/Throat/Neck oral pain 2016 Respiratory dyspnea on exertion 2016 Constitutional No recent illness 2016 Constitutional No anorexia 04/18/2017 Constitutional night sweats 04/18/2017 Constitutional No chills 04/18/2017 Constitutional No diaphoresis 04/18/2017 Constitutional fatigue 04/18/2017 Constitutional No fever 04/18/2017 Constitutional No insomnia 04/18/2017 Constitutional malaise 04/18/2017 Constitutional No weight loss 04/18/2017 Eyes No eye discharge 04/18/2017 Eyes No eye erythema 04/18/2017 Ears/Nose/Throat/Neck No dizziness 2016 Ears/Nose/Throat/Neck headache 2016 Ears/Nose/Throat/Neck nasal allergies Ears/Nose/Throat/Neck nasal discharge Cardiovascular No chest pain/pressure Cardiovascular edema 04/18/2017 Respiratory No productive sputum 2016 Respiratory cough 04/18/2017 Gastrointestinal abdominal pain 2016 Gastrointestinal constipation 04/18/2017 Gastrointestinal diarrhea 04/18/2017 Genitourinary/Nephrology No dysuria 04/18 Genitourinary/Nephrology urinary incontinence 04/18/2017 Musculoskeletal back pain 04/18/2017 Musculoskeletal joint complaint 2016 Dermatologic No rash 04/18/2017 Neurologic No alteration of consciousness 04/18/2017 Psychiatric anxiety 04/18/2017 Psychiatric depression 04/18/2017 Endocrine sweating 04/18/2017 Dermatologic sores 04/18/2017 Ears/Nose/Throat/Neck dysphagia 2016 Constitutional obesity 04/18/2017 Cardiovascular dyspnea 04/18/2017 Constitutional No recent illness 2016 Constitutional No anorexia 03/27/2017 Constitutional night sweats 03/27/2017 Constitutional No chills 03/27/2017 Constitutional No diaphoresis 03/27/2017 Constitutional fatigue 03/27/2017 Constitutional No fever 03/27/2017 Constitutional No insomnia 03/27/2017 Constitutional No malaise 03/27/2017 Constitutional No weight loss 03/27/2017 Eyes No eye discharge 03/27/2017 Eyes No eye erythema 03/27/2017 Ears/Nose/Throat/Neck No dizziness 2016 Ears/Nose/Throat/Neck No headache 2016 Ears/Nose/Throat/Neck nasal allergies 10/2016 Ears/Nose/Throat/Neck nasal discharge 10/2016 Ears/Nose/Throat/Neck sinus congestion Cardiovascular No chest pain/pressure 10/2016 Cardiovascular edema 03/27/2017 Respiratory No productive sputum 2016 Respiratory No cough 03/27/2017 Gastrointestinal constipation 03/27/2017 Gastrointestinal diarrhea 03/27/2017 Genitourinary/Nephrology dysuria 2016 Genitourinary/Nephrology urinary incontinence 03/27/2017 Musculoskeletal joint complaint 2016 Dermatologic No rash 03/27/2017 Neurologic No alteration of consciousness 03/27/2017 Psychiatric anxiety 03/27/2017 Psychiatric depression 03/27/2017 Endocrine sweating 03/27/2017 Gastrointestinal abdominal pain 2016 Musculoskeletal back pain 03/27/2017 Constitutional No recent illness 2016 Constitutional No anorexia 02/27/2017 Constitutional night sweats 02/27/2017 Constitutional No chills 02/27/2017 Constitutional No diaphoresis 02/27/2017 Constitutional fatigue 02/27/2017 Constitutional No fever 02/27/2017 Constitutional No insomnia 02/27/2017 Constitutional No malaise 02/27/2017 Constitutional No weight loss 02/27/2017 Constitutional weight gain 02/27/2017 Eyes No eye discharge 02/27/2017 Eyes No eye erythema 02/27/2017 Ears/Nose/Throat/Neck No dizziness 2016 Ears/Nose/Throat/Neck No headache 2016 Ears/Nose/Throat/Neck nasal discharge 01/2017 Ears/Nose/Throat/Neck sinus congestion Cardiovascular No chest pain/pressure 01/2017 Respiratory No productive sputum 2016 Respiratory No cough 02/27/2017 Gastrointestinal No diarrhea 02/27/2017 Genitourinary/Nephrology dysuria 2016 Genitourinary/Nephrology urinary incontinence 02/27/2017 Musculoskeletal joint complaint 2016 Dermatologic No rash 02/27/2017 Neurologic No alteration of consciousness 02/27/2017 Psychiatric anxiety 02/27/2017 Psychiatric depression 02/27/2017 Endocrine sweating 02/27/2017 Ears/Nose/Throat/Neck nasal allergies 01/2017 Cardiovascular edema 02/27/2017 Gastrointestinal No abdominal pain 2016 Gastrointestinal No constipation 2016 Constitutional No recent illness 2016 Constitutional No anorexia 02/21/2017 Constitutional No night sweats 2016 Constitutional chills 02/21/2017 Constitutional diaphoresis 02/21/2017 Constitutional fatigue 02/21/2017 Constitutional fever 02/21/2017 Constitutional No insomnia 02/21/2017 Constitutional No malaise 02/21/2017 Constitutional No weight loss 02/21/2017 Constitutional No weight gain 02/21/2017 Eyes No eye discharge 02/21/2017 Eyes No eye erythema 02/21/2017 Ears/Nose/Throat/Neck dizziness 2016 Ears/Nose/Throat/Neck headache 2016 Cardiovascular No chest pain/pressure 07/2016 Cardiovascular dyspnea 02/21/2017 Cardiovascular edema 02/21/2017 Respiratory cough 02/21/2017 Gastrointestinal abdominal pain 2016 Gastrointestinal constipation 02/21/2017 Gastrointestinal No diarrhea 02/21/2017 Gastrointestinal nausea 02/21/2017 Gastrointestinal vomiting 02/21/2017 Genitourinary/Nephrology dysuria 2016 Musculoskeletal arthralgia(s) 02/21/2017 Musculoskeletal back pain 02/21/2017 Dermatologic No rash 02/21/2017 Neurologic No alteration of consciousness 02/21/2017 Gastrointestinal abdominal pain 2016 Gastrointestinal No constipation 2016 Gastrointestinal diarrhea 02/17/2017 Gastrointestinal nausea 02/17/2017 Gastrointestinal vomiting 02/17/2017 Constitutional No recent illness 2016 Constitutional No anorexia 02/17/2017 Constitutional chills 02/17/2017 Constitutional No night sweats 2016 Constitutional diaphoresis 02/17/2017 Constitutional fatigue 02/17/2017 Constitutional fever 02/17/2017 Constitutional No insomnia 02/17/2017 Constitutional No malaise 02/17/2017 Constitutional No weight loss 02/17/2017 Constitutional No weight gain 02/17/2017 Eyes No eye discharge 02/17/2017 Eyes No eye erythema 02/17/2017 Ears/Nose/Throat/Neck dizziness 2016 Ears/Nose/Throat/Neck headache 2016 Cardiovascular No chest pain/pressure Cardiovascular edema 02/17/2017 Cardiovascular dyspnea 02/17/2017 Respiratory cough 02/17/2017 Genitourinary/Nephrology dysuria 2016 Musculoskeletal arthralgia(s) 02/17/2017 Musculoskeletal back pain 02/17/2017 Dermatologic No rash 02/17/2017 Neurologic No alteration of consciousness 02/17/2017 Constitutional recent illness 02/13/2017 Constitutional anorexia 02/13/2017 Constitutional No night sweats 2016 Constitutional No chills 02/13/2017 Constitutional No diaphoresis 02/13/2017 Constitutional fatigue 02/13/2017 Constitutional No fever 02/13/2017 Constitutional insomnia 02/13/2017 Constitutional malaise 02/13/2017 Constitutional No weight loss 02/13/2017 Constitutional No weight gain 02/13/2017 Eyes No eye discharge 02/13/2017 Eyes No eye erythema 02/13/2017 Ears/Nose/Throat/Neck No dizziness 2016 Ears/Nose/Throat/Neck headache 2016 Ears/Nose/Throat/Neck nasal allergies Ears/Nose/Throat/Neck nasal discharge Ears/Nose/Throat/Neck sinus congestion Ears/Nose/Throat/Neck sore throat 2016 Cardiovascular No chest pain/pressure Cardiovascular edema 02/13/2017 Respiratory No productive sputum 2016 Respiratory No cough 02/13/2017 Respiratory dyspnea on exertion 2016 Gastrointestinal No abdominal pain 2016 Genitourinary/Nephrology No dysuria 02/13 Musculoskeletal back pain 02/13/2017 Musculoskeletal bone pain 02/13/2017 Musculoskeletal joint complaint 2016 Dermatologic No sores 02/13/2017 Neurologic No alteration of consciousness 02/13/2017 Neurologic spasms/spasticity 02/13/2017 Psychiatric anxiety 02/13/2017 Psychiatric depression 02/13/2017 Gastrointestinal No constipation 2016 Gastrointestinal diarrhea 02/13/2017 Constitutional No recent illness 2016 Constitutional No anorexia 01/30/2017 Constitutional No night sweats 2016 Constitutional No chills 01/30/2017 Constitutional No diaphoresis 01/30/2017 Constitutional fatigue 01/30/2017 Constitutional No fever 01/30/2017 Constitutional insomnia 01/30/2017 Constitutional malaise 01/30/2017 Constitutional No weight loss 01/30/2017 Constitutional No weight gain 01/30/2017 Eyes No eye discharge 01/30/2017 Eyes No eye erythema 01/30/2017 Ears/Nose/Throat/Neck No dizziness 2016 Ears/Nose/Throat/Neck headache 2016 Ears/Nose/Throat/Neck nasal allergies 03/2017 Ears/Nose/Throat/Neck nasal discharge 03/2017 Ears/Nose/Throat/Neck sinus congestion Ears/Nose/Throat/Neck sore throat 2016 Cardiovascular No chest pain/pressure 03/2017 Cardiovascular edema 01/30/2017 Respiratory No productive sputum 2016 Respiratory No cough 01/30/2017 Respiratory dyspnea on exertion 2016 Gastrointestinal No abdominal pain 2016 Genitourinary/Nephrology No dysuria 01/30 Musculoskeletal back pain 01/30/2017 Musculoskeletal bone pain 01/30/2017 Musculoskeletal joint complaint 2016 Dermatologic No sores 01/30/2017 Neurologic No alteration of consciousness 01/30/2017 Neurologic spasms/spasticity 01/30/2017 Psychiatric anxiety 01/30/2017 Psychiatric depression 01/30/2017 Constitutional No recent illness 2016 Constitutional No anorexia 01/16/2017 Constitutional No night sweats 2016 Constitutional No chills 01/16/2017 Constitutional No diaphoresis 01/16/2017 Constitutional fatigue 01/16/2017 Constitutional No fever 01/16/2017 Constitutional insomnia 01/16/2017 Constitutional malaise 01/16/2017 Constitutional No weight loss 01/16/2017 Constitutional No weight gain 01/16/2017 Eyes No eye discharge 01/16/2017 Eyes No eye erythema 01/16/2017 Ears/Nose/Throat/Neck No dizziness 2016 Ears/Nose/Throat/Neck headache 2016 Ears/Nose/Throat/Neck nasal allergies Ears/Nose/Throat/Neck nasal discharge Ears/Nose/Throat/Neck sinus congestion Ears/Nose/Throat/Neck sore throat 2016 Cardiovascular No chest pain/pressure Respiratory No productive sputum 2016 Respiratory No cough 01/16/2017 Respiratory dyspnea on exertion 2016 Gastrointestinal No abdominal pain 2016 Genitourinary/Nephrology No dysuria 01/16 Dermatologic rash 01/16/2017 Dermatologic No sores 01/16/2017 Neurologic No alteration of consciousness 01/16/2017 Neurologic spasms/spasticity 01/16/2017 Psychiatric anxiety 01/16/2017 Psychiatric depression 01/16/2017 Cardiovascular edema 01/16/2017 Musculoskeletal joint complaint 2016 Musculoskeletal back pain 01/16/2017 Musculoskeletal bone pain 01/16/2017 Constitutional recent illness 12/13/2016 Constitutional chills 12/13/2016 Constitutional No diaphoresis 12/13/2016 Constitutional No fever 12/13/2016 Constitutional fatigue 12/13/2016 Eyes No eye erythema 12/13/2016 Ears/Nose/Throat/Neck nasal allergies Ears/Nose/Throat/Neck nasal discharge Ears/Nose/Throat/Neck postnasal drip Ears/Nose/Throat/Neck sinus congestion Cardiovascular No chest pain/pressure Respiratory dyspnea on exertion 2016 Respiratory No dyspnea 12/13/2016 Respiratory cough 12/13/2016 Respiratory No chest congestion 2016 Respiratory productive sputum 12/13/2016 Gastrointestinal No abdominal pain 2016 Gastrointestinal No constipation 2016 Gastrointestinal No diarrhea 12/13/2016 Gastrointestinal nausea 12/13/2016 Dermatologic sores 12/13/2016 Neurologic No alteration of consciousness 12/13/2016 Neurologic No mental status change 2016 Constitutional recent illness 11/11/2016 Constitutional No anorexia 11/11/2016 Constitutional No night sweats 2016 Constitutional No chills 11/11/2016 Constitutional No diaphoresis 11/11/2016 Constitutional fatigue 11/11/2016 Constitutional No fever 11/11/2016 Constitutional No insomnia 11/11/2016 Constitutional No malaise 11/11/2016 Constitutional No weight loss 11/11/2016 Constitutional No weight gain 11/11/2016 Eyes No eye discharge 11/11/2016 Eyes No eye erythema 11/11/2016 Ears/Nose/Throat/Neck No dizziness 2016 Ears/Nose/Throat/Neck headache 2016 Ears/Nose/Throat/Neck nasal allergies Ears/Nose/Throat/Neck nasal discharge Ears/Nose/Throat/Neck sinus congestion Ears/Nose/Throat/Neck sore throat 2016 Cardiovascular No chest pain/pressure Respiratory No productive sputum 2016 Respiratory No cough 11/11/2016 Respiratory dyspnea on exertion 2016 Gastrointestinal No abdominal pain 2016 Genitourinary/Nephrology No dysuria 11/11 Dermatologic rash 11/11/2016 Dermatologic No sores 11/11/2016 Neurologic No alteration of consciousness 11/11/2016 Psychiatric anxiety 11/11/2016 Psychiatric depression 11/11/2016 Neurologic spasms/spasticity 11/11/2016 Constitutional recent illness 10/28/2016 Constitutional No anorexia 10/28/2016 Constitutional No night sweats 2016 Constitutional No chills 10/28/2016 Constitutional No diaphoresis 10/28/2016 Constitutional fatigue 10/28/2016 Constitutional No fever 10/28/2016 Constitutional No insomnia 10/28/2016 Constitutional No malaise 10/28/2016 Constitutional No weight loss 10/28/2016 Constitutional No weight gain 10/28/2016 Eyes No eye discharge 10/28/2016 Eyes No eye erythema 10/28/2016 Ears/Nose/Throat/Neck No dizziness 2016 Ears/Nose/Throat/Neck headache 2016 Ears/Nose/Throat/Neck nasal allergies 01/2017 Ears/Nose/Throat/Neck nasal discharge 01/2017 Ears/Nose/Throat/Neck sinus congestion Ears/Nose/Throat/Neck sore throat 2016 Cardiovascular No chest pain/pressure 01/2017 Respiratory No productive sputum 2016 Respiratory No cough 10/28/2016 Respiratory dyspnea on exertion 2016 Gastrointestinal No abdominal pain 2016 Genitourinary/Nephrology No dysuria 10/28 Dermatologic rash 10/28/2016 Dermatologic No sores 10/28/2016 Neurologic No alteration of consciousness 10/28/2016 Psychiatric anxiety 10/28/2016 Psychiatric depression 10/28/2016 Gastrointestinal nausea 10/28/2016 Gastrointestinal vomiting 10/28/2016 Constitutional recent illness 10/13/2016 Constitutional No anorexia 10/13/2016 Constitutional No night sweats 2016 Constitutional No chills 10/13/2016 Constitutional No diaphoresis 10/13/2016 Constitutional fatigue 10/13/2016 Constitutional No fever 10/13/2016 Constitutional No insomnia 10/13/2016 Constitutional No malaise 10/13/2016 Constitutional No weight loss 10/13/2016 Constitutional No weight gain 10/13/2016 Eyes No eye discharge 10/13/2016 Eyes No eye erythema 10/13/2016 Ears/Nose/Throat/Neck No dizziness 2016 Ears/Nose/Throat/Neck headache 2016 Ears/Nose/Throat/Neck nasal allergies Ears/Nose/Throat/Neck nasal discharge Ears/Nose/Throat/Neck sinus congestion Ears/Nose/Throat/Neck sore throat 2016 Cardiovascular No chest pain/pressure Respiratory No productive sputum 2016 Respiratory No cough 10/13/2016 Gastrointestinal No abdominal pain 2016 Genitourinary/Nephrology No dysuria 10/13 Dermatologic No rash 10/13/2016 Dermatologic No sores 10/13/2016 Neurologic No alteration of consciousness 10/13/2016 Psychiatric anxiety 10/13/2016 Psychiatric depression 10/13/2016 Respiratory dyspnea on exertion 2016 Constitutional recent illness 09/23/2016 Constitutional No anorexia 09/23/2016 Constitutional No night sweats 2016 Constitutional No chills 09/23/2016 Constitutional diaphoresis 09/23/2016 Constitutional fatigue 09/23/2016 Constitutional No fever 09/23/2016 Constitutional No insomnia 09/23/2016 Constitutional No malaise 09/23/2016 Constitutional No weight loss 09/23/2016 Constitutional No weight gain 09/23/2016 Eyes No eye discharge 09/23/2016 Eyes No eye erythema 09/23/2016 Ears/Nose/Throat/Neck No dizziness 2016 Ears/Nose/Throat/Neck headache 2016 Ears/Nose/Throat/Neck nasal allergies 09/2016 Ears/Nose/Throat/Neck nasal discharge 09/2016 Ears/Nose/Throat/Neck otalgia 09/23/2016 Ears/Nose/Throat/Neck sinus congestion Ears/Nose/Throat/Neck sore throat 2016 Cardiovascular No chest pain/pressure 09/2016 Respiratory productive sputum 09/23/2016 Respiratory cough 09/23/2016 Respiratory dyspnea on exertion 2016 Gastrointestinal No abdominal pain 2016 Genitourinary/Nephrology No dysuria 09/23 Musculoskeletal joint complaint 2016 Dermatologic No rash 09/23/2016 Dermatologic No sores 09/23/2016 Neurologic No alteration of consciousness 09/23/2016 Psychiatric anxiety 09/23/2016 Psychiatric depression 09/23/2016 Constitutional recent illness 09/13/2016 Constitutional anorexia 09/13/2016 Constitutional night sweats 09/13/2016 Constitutional chills 09/13/2016 Constitutional diaphoresis 09/13/2016 Constitutional fatigue 09/13/2016 Constitutional No fever 09/13/2016 Constitutional insomnia 09/13/2016 Constitutional No malaise 09/13/2016 Constitutional No weight loss 09/13/2016 Constitutional No weight gain 09/13/2016 Constitutional No obesity 09/13/2016 Eyes No eye pain 09/13/2016 Eyes No vision change 09/13/2016 Ears/Nose/Throat/Neck dizziness 2016 Ears/Nose/Throat/Neck headache 2016 Cardiovascular No chest pain/pressure Cardiovascular fatigue 09/13/2016 Cardiovascular dyspnea 09/13/2016 Musculoskeletal arthralgia(s) 09/13/2016 Musculoskeletal muscle weakness 2016 Musculoskeletal stiffness 09/13/2016 Musculoskeletal joint complaint 2016 Respiratory chest tightness 09/13/2016 Respiratory chest congestion 09/13/2016 Respiratory productive sputum 09/13/2016 Gastrointestinal No constipation 2016 Gastrointestinal No diarrhea 09/13/2016 Gastrointestinal No abdominal pain 2016 Gastrointestinal No vomiting 09/13/2016 Gastrointestinal No nausea 09/13/2016 Genitourinary/Nephrology No anuria/oliguria 09/13/2016 Genitourinary/Nephrology No dysuria 09/13 Dermatologic No rash 09/13/2016 Dermatologic No sores 09/13/2016 Neurologic No dizziness 09/13/2016 Neurologic No headache 09/13/2016 Psychiatric No anxiety 09/13/2016 Psychiatric No depression 09/13/2016 Endocrine No polydipsia 09/13/2016 Endocrine No polyuria 09/13/2016 Endocrine sweating 09/13/2016 Endocrine weakness 09/13/2016 Hematologic/Lymphatic No abnormal ecchymoses 09/13/2016 Hematologic/Lymphatic No abnormal bleeding and bruising 09/13/2016 Allergy/Immunology No anaphylactoid reaction 09/13/2016 Allergy/Immunology No food allergy 2016 Constitutional recent illness 08/09/2016 Constitutional No anorexia 08/09/2016 Constitutional No night sweats 2016 Constitutional No chills 08/09/2016 Constitutional No diaphoresis 08/09/2016 Constitutional fatigue 08/09/2016 Constitutional No fever 08/09/2016 Constitutional insomnia 08/09/2016 Constitutional malaise 08/09/2016 Constitutional weight loss 08/09/2016 Constitutional No weight gain 08/09/2016 Constitutional No obesity 08/09/2016 Eyes No eye pain 08/09/2016 Ears/Nose/Throat/Neck dizziness 2016 Ears/Nose/Throat/Neck headache 2016 Ears/Nose/Throat/Neck nasal allergies Ears/Nose/Throat/Neck nasal discharge Cardiovascular dyspnea 08/09/2016 Respiratory No chest congestion 2016 Respiratory No chest tightness 2016 Respiratory No cigarette smoking 2016 Gastrointestinal No diarrhea 08/09/2016 Gastrointestinal gas and bloating 2016 Gastrointestinal nausea 08/09/2016 Gastrointestinal No vomiting 08/09/2016 Genitourinary/Nephrology No anuria/oliguria 08/09/2016 Genitourinary/Nephrology No dysuria 08/09 Musculoskeletal stiffness 08/09/2016 Musculoskeletal swelling 08/09/2016 Musculoskeletal arthralgia(s) 08/09/2016 Dermatologic rash 08/09/2016 Dermatologic No sores 08/09/2016 Neurologic No dizziness 08/09/2016 Neurologic No headache 08/09/2016 Psychiatric anxiety 08/09/2016 Psychiatric depression 08/09/2016 Hematologic/Lymphatic No abnormal ecchymoses 08/09/2016 Hematologic/Lymphatic No abnormal bleeding and bruising 08/09/2016 Ears/Nose/Throat/Neck sinus congestion Ears/Nose/Throat/Neck No sore throat Cardiovascular No chest pain/pressure Respiratory dyspnea on exertion 2016 Gastrointestinal No abdominal pain 2016 Gastrointestinal No constipation 2016 Constitutional recent illness 07/26/2016 Constitutional anorexia 07/26/2016 Constitutional No night sweats 2016 Constitutional No chills 07/26/2016 Constitutional No diaphoresis 07/26/2016 Constitutional fatigue 07/26/2016 Constitutional No fever 07/26/2016 Constitutional insomnia 07/26/2016 Constitutional malaise 07/26/2016 Constitutional No weight loss 07/26/2016 Constitutional No weight gain 07/26/2016 Constitutional No obesity 07/26/2016 Eyes No eye pain 07/26/2016 Eyes No vision change 07/26/2016 Ears/Nose/Throat/Neck dizziness 2016 Ears/Nose/Throat/Neck headache 2016 Ears/Nose/Throat/Neck nasal allergies 11/2016 Ears/Nose/Throat/Neck nasal discharge 11/2016 Cardiovascular arrhythmia 07/26/2016 Cardiovascular chest pain/pressure 2016 Cardiovascular dyspnea 07/26/2016 Respiratory No chest congestion 2016 Respiratory No chest tightness 2016 Respiratory No cigarette smoking 2016 Respiratory cough 07/26/2016 Gastrointestinal abdominal pain 2016 Gastrointestinal constipation 07/26/2016 Gastrointestinal No diarrhea 07/26/2016 Gastrointestinal nausea 07/26/2016 Gastrointestinal No vomiting 07/26/2016 Genitourinary/Nephrology No anuria/oliguria 07/26/2016 Genitourinary/Nephrology No dysuria 07/26 Musculoskeletal stiffness 07/26/2016 Musculoskeletal swelling 07/26/2016 Musculoskeletal arthralgia(s) 07/26/2016 Dermatologic rash 07/26/2016 Dermatologic No sores 07/26/2016 Neurologic No dizziness 07/26/2016 Neurologic No headache 07/26/2016 Psychiatric anxiety 07/26/2016 Psychiatric depression 07/26/2016 Hematologic/Lymphatic No abnormal ecchymoses 07/26/2016 Hematologic/Lymphatic No abnormal bleeding and bruising 07/26/2016 Gastrointestinal gas and bloating 2016 Constitutional No recent illness 2016 Constitutional No anorexia 05/24/2016 Constitutional No night sweats 2016 Constitutional No chills 05/24/2016 Constitutional No diaphoresis 05/24/2016 Constitutional fatigue 05/24/2016 Constitutional No fever 05/24/2016 Constitutional insomnia 05/24/2016 Constitutional malaise 05/24/2016 Constitutional No weight loss 05/24/2016 Constitutional No weight gain 05/24/2016 Constitutional No obesity 05/24/2016 Eyes No eye pain 05/24/2016 Eyes No vision change 05/24/2016 Ears/Nose/Throat/Neck dizziness 2016 Ears/Nose/Throat/Neck headache 2016 Cardiovascular chest pain/pressure 2016 Cardiovascular dyspnea 05/24/2016 Respiratory No chest congestion 2016 Respiratory No chest tightness 2016 Respiratory No cigarette smoking 2016 Respiratory No cough 05/24/2016 Gastrointestinal abdominal pain 2016 Gastrointestinal constipation 05/24/2016 Gastrointestinal No diarrhea 05/24/2016 Gastrointestinal nausea 05/24/2016 Gastrointestinal No vomiting 05/24/2016 Genitourinary/Nephrology No anuria/oliguria 05/24/2016 Genitourinary/Nephrology No dysuria 05/24 Musculoskeletal stiffness 05/24/2016 Musculoskeletal swelling 05/24/2016 Musculoskeletal arthralgia(s) 05/24/2016 Dermatologic No rash 05/24/2016 Dermatologic No sores 05/24/2016 Neurologic No dizziness 05/24/2016 Neurologic No headache 05/24/2016 Psychiatric anxiety 05/24/2016 Psychiatric depression 05/24/2016 Hematologic/Lymphatic No abnormal ecchymoses 05/24/2016 Hematologic/Lymphatic No abnormal bleeding and bruising 05/24/2016 Cardiovascular arrhythmia 05/24/2016 Ears/Nose/Throat/Neck nasal discharge 07/2016 Ears/Nose/Throat/Neck nasal allergies 07/2016 Constitutional No recent illness 2015 Constitutional No anorexia 04/19/2016 Constitutional No night sweats 2015 Constitutional No chills 04/19/2016 Constitutional No diaphoresis 04/19/2016 Constitutional fatigue 04/19/2016 Constitutional No fever 04/19/2016 Constitutional insomnia 04/19/2016 Constitutional malaise 04/19/2016 Constitutional No weight loss 04/19/2016 Constitutional No weight gain 04/19/2016 Constitutional No obesity 04/19/2016 Eyes No eye pain 04/19/2016 Eyes No vision change 04/19/2016 Ears/Nose/Throat/Neck headache 2015 Cardiovascular chest pain/pressure 2015 Cardiovascular dyspnea 04/19/2016 Respiratory No chest congestion 2015 Respiratory No chest tightness 2015 Respiratory No cigarette smoking 2015 Respiratory No cough 04/19/2016 Gastrointestinal abdominal pain 2015 Gastrointestinal No diarrhea 04/19/2016 Gastrointestinal nausea 04/19/2016 Gastrointestinal No vomiting 04/19/2016 Genitourinary/Nephrology No anuria/oliguria 04/19/2016 Genitourinary/Nephrology No dysuria 04/19 Musculoskeletal stiffness 04/19/2016 Musculoskeletal swelling 04/19/2016 Musculoskeletal arthralgia(s) 04/19/2016 Dermatologic No rash 04/19/2016 Dermatologic No sores 04/19/2016 Neurologic No dizziness 04/19/2016 Neurologic No headache 04/19/2016 Psychiatric anxiety 04/19/2016 Psychiatric depression 04/19/2016 Hematologic/Lymphatic No abnormal ecchymoses 04/19/2016 Hematologic/Lymphatic No abnormal bleeding and bruising 04/19/2016 Genitourinary/Nephrology vaginal discharge 04/19/2016 Constitutional No recent illness 2015 Constitutional No fever 04/11/2016 Constitutional No chills 04/11/2016 Constitutional No night sweats 2015 Constitutional insomnia 04/11/2016 Constitutional malaise 04/11/2016 Constitutional No weight loss 04/11/2016 Constitutional No weight gain 04/11/2016 Constitutional No obesity 04/11/2016 Constitutional fatigue 04/11/2016 Constitutional No diaphoresis 04/11/2016 Constitutional No anorexia 04/11/2016 Eyes No vision change 04/11/2016 Eyes No eye pain 04/11/2016 Ears/Nose/Throat/Neck dizziness 2015 Ears/Nose/Throat/Neck headache 2015 Cardiovascular dyspnea 04/11/2016 Cardiovascular chest pain/pressure 2015 Respiratory No cigarette smoking 2015 Respiratory No cough 04/11/2016 Respiratory No chest tightness 2015 Respiratory No chest congestion 2015 Gastrointestinal constipation 04/11/2016 Gastrointestinal No diarrhea 04/11/2016 Gastrointestinal abdominal pain 2015 Gastrointestinal nausea 04/11/2016 Gastrointestinal No vomiting 04/11/2016 Genitourinary/Nephrology No dysuria 04/11 Genitourinary/Nephrology No anuria/oliguria 04/11/2016 Musculoskeletal stiffness 04/11/2016 Musculoskeletal swelling 04/11/2016 Musculoskeletal arthralgia(s) 04/11/2016 Dermatologic No rash 04/11/2016 Dermatologic No sores 04/11/2016 Neurologic No dizziness 04/11/2016 Neurologic No headache 04/11/2016 Psychiatric anxiety 04/11/2016 Psychiatric depression 04/11/2016 Hematologic/Lymphatic No abnormal ecchymoses 04/11/2016 Hematologic/Lymphatic No abnormal bleeding and bruising 04/11/2016 Constitutional recent illness 03/21/2016 Constitutional night sweats 03/21/2016 Constitutional chills 03/21/2016 Constitutional fatigue 03/21/2016 Constitutional insomnia 03/21/2016 Eyes No blindness 03/21/2016 Eyes No eye pain 03/21/2016 Eyes No vision change 03/21/2016 Ears/Nose/Throat/Neck headache 2015 Ears/Nose/Throat/Neck dizziness 2015 Cardiovascular chest pain/pressure 2015 Cardiovascular fatigue 03/21/2016 Cardiovascular dyspnea 03/21/2016 Respiratory No chest congestion 2015 Respiratory cough 03/21/2016 Respiratory No cigarette smoking 2015 Respiratory No pedal edema 03/21/2016 Cardiovascular palpitations 03/21/2016 Respiratory productive sputum 03/21/2016 Respiratory dyspnea 03/21/2016 Gastrointestinal constipation 03/21/2016 Gastrointestinal diarrhea 03/21/2016 Genitourinary/Nephrology urinary incontinence 03/21/2016 Musculoskeletal No stiffness 03/21/2016 Musculoskeletal No swelling 03/21/2016 Musculoskeletal No muscle weakness 2015 Dermatologic No rash 03/21/2016 Dermatologic sores 03/21/2016 Neurologic dizziness 03/21/2016 Psychiatric depression 03/21/2016 Psychiatric anxiety 03/21/2016 Hematologic/Lymphatic No abnormal ecchymoses 03/21/2016 Hematologic/Lymphatic No abnormal bleeding and bruising 03/21/2016 Constitutional recent illness 03/11/2016 Constitutional No night sweats 2015 Constitutional No anorexia 03/11/2016 Constitutional No chills 03/11/2016 Constitutional No diaphoresis 03/11/2016 Constitutional fatigue 03/11/2016 Constitutional No fever 03/11/2016 Constitutional No insomnia 03/11/2016 Constitutional No malaise 03/11/2016 Constitutional No weight gain 03/11/2016 Constitutional No weight loss 03/11/2016 Eyes No eye discharge 03/11/2016 Eyes No eye erythema 03/11/2016 Ears/Nose/Throat/Neck dizziness 2015 Ears/Nose/Throat/Neck nasal allergies Ears/Nose/Throat/Neck nasal discharge Ears/Nose/Throat/Neck otalgia 03/11/2016 Ears/Nose/Throat/Neck sinus congestion Cardiovascular No chest pain/pressure Respiratory No cough 03/11/2016 Gastrointestinal No abdominal pain 2015 Gastrointestinal diarrhea 03/11/2016 Genitourinary/Nephrology No dysuria 03/11 Musculoskeletal joint complaint 2015 Dermatologic rash 03/11/2016 Neurologic No alteration of consciousness 03/11/2016 Psychiatric anxiety 03/11/2016 Gastrointestinal No abdominal pain 2015 Gastrointestinal No constipation 2015 Gastrointestinal nausea 02/26/2016 Gastrointestinal vomiting 02/26/2016 Gastrointestinal diarrhea 02/26/2016 Constitutional recent illness 02/26/2016 Constitutional No anorexia 02/26/2016 Constitutional No night sweats 2015 Constitutional chills 02/26/2016 Constitutional diaphoresis 02/26/2016 Constitutional fatigue 02/26/2016 Constitutional No fever 02/26/2016 Constitutional insomnia 02/26/2016 Constitutional No malaise 02/26/2016 Constitutional No weight loss 02/26/2016 Constitutional weight gain 02/26/2016 Eyes No eye erythema 02/26/2016 Eyes eye discharge 02/26/2016 Ears/Nose/Throat/Neck dizziness 2015 Ears/Nose/Throat/Neck headache 2015 Ears/Nose/Throat/Neck nasal allergies 11/2015 Ears/Nose/Throat/Neck nasal discharge 11/2015 Cardiovascular No chest pain/pressure 11/2015 Respiratory productive sputum 02/26/2016 Respiratory chest congestion 02/26/2016 Respiratory cough 02/26/2016 Genitourinary/Nephrology No dysuria 02/25 Musculoskeletal joint complaint 2015 Dermatologic No rash 02/26/2016 Neurologic No alteration of consciousness 02/26/2016 Cardiovascular dyspnea 02/26/2016 Cardiovascular edema 02/26/2016 Constitutional No recent illness 2015 Constitutional anorexia 02/02/2016 Constitutional night sweats 02/02/2016 Constitutional diaphoresis 02/02/2016 Constitutional chills 02/02/2016 Constitutional fatigue 02/02/2016 Constitutional No fever 02/02/2016 Constitutional No insomnia 02/02/2016 Constitutional malaise 02/02/2016 Constitutional No weight loss 02/02/2016 Constitutional No weight gain 02/02/2016 Gastrointestinal No abdominal pain 2015 Gastrointestinal No constipation 2015 Gastrointestinal No diarrhea 02/02/2016 Gastrointestinal nausea 02/02/2016 Gastrointestinal gas and bloating 2015 Eyes No eye discharge 02/02/2016 Eyes No eye erythema 02/02/2016 Ears/Nose/Throat/Neck dizziness 2015 Ears/Nose/Throat/Neck headache 2015 Ears/Nose/Throat/Neck No facial swelling 02/02/2016 Ears/Nose/Throat/Neck sinus congestion Ears/Nose/Throat/Neck No otalgia 2015 Ears/Nose/Throat/Neck nasal allergies Cardiovascular No chest pain/pressure Cardiovascular dyspnea 02/02/2016 Cardiovascular edema 02/02/2016 Respiratory No pleuritic pain 02/02/2016 Respiratory cough 02/02/2016 Genitourinary/Nephrology No dysuria 02/01 Musculoskeletal joint complaint 2015 Dermatologic No rash 02/02/2016 Neurologic No alteration of consciousness 02/02/2016 Psychiatric anxiety 02/02/2016 Psychiatric depression 02/02/2016 Endocrine No cold sensitivity 02/02/2016 Endocrine No dry or coarse skin 2015 Hematologic/Lymphatic No abnormal ecchymoses 02/02/2016 Constitutional No recent illness 2015 Constitutional No anorexia 12/17/2015 Constitutional night sweats 12/17/2015 Constitutional No chills 12/17/2015 Constitutional diaphoresis 12/17/2015 Constitutional fatigue 12/17/2015 Constitutional No fever 12/17/2015 Constitutional insomnia 12/17/2015 Constitutional No malaise 12/17/2015 Constitutional No weight loss 12/17/2015 Constitutional weight gain 12/17/2015 Eyes No eye discharge 12/17/2015 Eyes No eye erythema 12/17/2015 Ears/Nose/Throat/Neck dizziness 2015 Ears/Nose/Throat/Neck headache 2015 Ears/Nose/Throat/Neck nasal discharge Cardiovascular No chest pain/pressure Cardiovascular dyspnea 12/17/2015 Respiratory No productive sputum 2015 Respiratory No cough 12/17/2015 Gastrointestinal No abdominal pain 2015 Gastrointestinal No diarrhea 12/17/2015 Genitourinary/Nephrology No dysuria 12/16 Genitourinary/Nephrology urinary incontinence 12/17/2015 Musculoskeletal joint complaint 2015 Dermatologic No rash 12/17/2015 Neurologic No alteration of consciousness 12/17/2015 Psychiatric anxiety 12/17/2015 Psychiatric depression 12/17/2015 Endocrine sweating 12/17/2015 Constitutional recent illness 12/08/2015 Constitutional anorexia 12/08/2015 Constitutional night sweats 12/08/2015 Constitutional chills 12/08/2015 Constitutional diaphoresis 12/08/2015 Constitutional fatigue 12/08/2015 Constitutional No fever 12/08/2015 Constitutional No insomnia 12/08/2015 Constitutional malaise 12/08/2015 Eyes No eye discharge 12/08/2015 Eyes No eye erythema 12/08/2015 Ears/Nose/Throat/Neck dizziness 2015 Ears/Nose/Throat/Neck headache 2015 Ears/Nose/Throat/Neck nasal allergies Ears/Nose/Throat/Neck nasal discharge Ears/Nose/Throat/Neck sinus congestion Cardiovascular dyspnea 12/08/2015 Cardiovascular edema 12/08/2015 Cardiovascular fatigue 12/08/2015 Cardiovascular hypertension 12/08/2015 Respiratory No productive sputum 2015 Respiratory No chest congestion 2015 Respiratory cough 12/08/2015 Respiratory dyspnea on exertion 2015 Gastrointestinal No abdominal pain 2015 Gastrointestinal No constipation 2015 Gastrointestinal No diarrhea 12/08/2015 Gastrointestinal No vomiting 12/08/2015 Gastrointestinal nausea 12/08/2015 Genitourinary/Nephrology No dysuria 12/07 Musculoskeletal joint complaint 2015 Dermatologic No rash 12/08/2015 Neurologic dizziness 12/08/2015 Neurologic alteration of consciousness Psychiatric anxiety 12/08/2015 Psychiatric depression 12/08/2015 Endocrine sweating 12/08/2015 Hematologic/Lymphatic No abnormal bleeding and bruising 12/08/2015 Constitutional No recent illness 2015 Constitutional No anorexia 11/27/2015 Constitutional night sweats 11/27/2015 Constitutional No chills 11/27/2015 Constitutional diaphoresis 11/27/2015 Constitutional fatigue 11/27/2015 Constitutional No fever 11/27/2015 Constitutional insomnia 11/27/2015 Constitutional No malaise 11/27/2015 Constitutional No weight loss 11/27/2015 Constitutional weight gain 11/27/2015 Eyes No eye discharge 11/27/2015 Eyes No eye erythema 11/27/2015 Ears/Nose/Throat/Neck dizziness 2015 Ears/Nose/Throat/Neck headache 2015 Ears/Nose/Throat/Neck nasal discharge 12/2015 Ears/Nose/Throat/Neck sinus congestion Cardiovascular No chest pain/pressure 12/2015 Cardiovascular dyspnea 11/27/2015 Respiratory No productive sputum 2015 Respiratory No cough 11/27/2015 Gastrointestinal No abdominal pain 2015 Gastrointestinal constipation 11/27/2015 Gastrointestinal No diarrhea 11/27/2015 Genitourinary/Nephrology No dysuria 11/26 Genitourinary/Nephrology urinary incontinence 11/27/2015 Musculoskeletal joint complaint 2015 Dermatologic No rash 11/27/2015 Neurologic No alteration of consciousness 11/27/2015 Psychiatric anxiety 11/27/2015 Psychiatric depression 11/27/2015 Endocrine sweating 11/27/2015 Constitutional chills 11/12/2015 Constitutional diaphoresis 11/12/2015 Constitutional fatigue 11/12/2015 Constitutional No fever 11/12/2015 Constitutional insomnia 11/12/2015 Eyes No eye discharge 11/12/2015 Eyes No eye erythema 11/12/2015 Ears/Nose/Throat/Neck dizziness 2015 Ears/Nose/Throat/Neck headache 2015 Ears/Nose/Throat/Neck nasal discharge Ears/Nose/Throat/Neck sinus congestion Cardiovascular No chest pain/pressure Cardiovascular dyspnea 11/12/2015 Musculoskeletal joint complaint 2015 Dermatologic No rash 11/12/2015 Neurologic No alteration of consciousness 11/12/2015 Psychiatric anxiety 11/12/2015 Psychiatric depression 11/12/2015 Endocrine sweating 11/12/2015 Constitutional night sweats 11/12/2015 Constitutional recent illness 11/12/2015 Constitutional malaise 11/12/2015 Respiratory cough 11/12/2015 Respiratory dyspnea on exertion 2015 Gastrointestinal No abdominal pain 2015 Constitutional recent illness 11/10/2015 Constitutional obesity 11/10/2015 Constitutional chills 11/10/2015 Constitutional No diaphoresis 11/10/2015 Constitutional fatigue 11/10/2015 Constitutional No malaise 11/10/2015 Eyes No eye discharge 11/10/2015 Eyes No eye erythema 11/10/2015 Ears/Nose/Throat/Neck nasal allergies Ears/Nose/Throat/Neck nasal discharge Cardiovascular No chest pain/pressure Cardiovascular edema 11/10/2015 Respiratory chest congestion 11/10/2015 Respiratory cough 11/10/2015 Musculoskeletal joint complaint 2015 Neurologic No alteration of consciousness 11/10/2015 Psychiatric depression 11/10/2015 Ears/Nose/Throat/Neck sinus congestion Respiratory dyspnea on exertion 2015 Dermatologic No sores 11/10/2015 Constitutional obesity 10/27/2015 Constitutional No chills 10/27/2015 Constitutional No diaphoresis 10/27/2015 Constitutional fatigue 10/27/2015 Constitutional No fever 10/27/2015 Constitutional No insomnia 10/27/2015 Constitutional No malaise 10/27/2015 Eyes No eye discharge 10/27/2015 Eyes No eye erythema 10/27/2015 Cardiovascular No chest pain/pressure 11/2015 Cardiovascular edema 10/27/2015 Respiratory No productive sputum 2015 Respiratory No chest congestion 2015 Respiratory No cough 10/27/2015 Gastrointestinal No abdominal pain 2015 Dermatologic sores 10/27/2015 Neurologic No alteration of consciousness 10/27/2015 Psychiatric depression 10/27/2015 Ears/Nose/Throat/Neck No nasal allergies 10/27/2015 Ears/Nose/Throat/Neck No nasal discharge 10/27/2015 Musculoskeletal joint complaint 2015 Neurologic No mental status change 2015 Constitutional No recent illness 2015 Constitutional No chills 09/29/2015 Constitutional No diaphoresis 09/29/2015 Constitutional fatigue 09/29/2015 Constitutional No fever 09/29/2015 Constitutional No insomnia 09/29/2015 Constitutional No malaise 09/29/2015 Eyes No eye discharge 09/29/2015 Eyes No eye erythema 09/29/2015 Ears/Nose/Throat/Neck nasal allergies 02/2016 Ears/Nose/Throat/Neck nasal discharge 02/2016 Cardiovascular No chest pain/pressure 02/2016 Cardiovascular edema 09/29/2015 Respiratory No productive sputum 2015 Respiratory No chest congestion 2015 Respiratory No cough 09/29/2015 Gastrointestinal No abdominal pain 2015 Gastrointestinal constipation 09/29/2015 Gastrointestinal diarrhea 09/29/2015 Genitourinary/Nephrology No dysuria 09/28 Musculoskeletal joint complaint 2015 Dermatologic sores 09/29/2015 Neurologic No alteration of consciousness 09/29/2015 Psychiatric depression 09/29/2015 Constitutional obesity 09/29/2015 Constitutional No recent illness 2015 Constitutional No anorexia 09/22/2015 Constitutional night sweats 09/22/2015 Constitutional No chills 09/22/2015 Constitutional No diaphoresis 09/22/2015 Constitutional fatigue 09/22/2015 Constitutional No fever 09/22/2015 Constitutional No insomnia 09/22/2015 Constitutional No malaise 09/22/2015 Constitutional No weight loss 09/22/2015 Constitutional No weight gain 09/22/2015 Eyes No eye discharge 09/22/2015 Eyes No eye erythema 09/22/2015 Ears/Nose/Throat/Neck No dizziness 2015 Ears/Nose/Throat/Neck headache 2015 Ears/Nose/Throat/Neck nasal allergies 07/2015 Ears/Nose/Throat/Neck nasal discharge 07/2015 Cardiovascular No chest pain/pressure 07/2015 Cardiovascular edema 09/22/2015 Respiratory No productive sputum 2015 Respiratory No chest congestion 2015 Respiratory No cough 09/22/2015 Gastrointestinal No abdominal pain 2015 Gastrointestinal constipation 09/22/2015 Gastrointestinal diarrhea 09/22/2015 Genitourinary/Nephrology No dysuria 09/21 Genitourinary/Nephrology urinary urgency 09/22/2015 Musculoskeletal joint complaint 2015 Dermatologic rash 09/22/2015 Dermatologic sores 09/22/2015 Neurologic No alteration of consciousness 09/22/2015 Psychiatric depression 09/22/2015 Endocrine No dry or coarse skin 2015 Constitutional No recent illness 2015 Constitutional No anorexia 09/01/2015 Constitutional night sweats 09/01/2015 Constitutional No chills 09/01/2015 Constitutional No diaphoresis 09/01/2015 Constitutional fatigue 09/01/2015 Constitutional No fever 09/01/2015 Constitutional No insomnia 09/01/2015 Constitutional No malaise 09/01/2015 Constitutional No weight loss 09/01/2015 Constitutional No weight gain 09/01/2015 Eyes No eye discharge 09/01/2015 Eyes No eye erythema 09/01/2015 Ears/Nose/Throat/Neck No dizziness 2015 Ears/Nose/Throat/Neck headache 2015 Ears/Nose/Throat/Neck nasal allergies 04/2016 Ears/Nose/Throat/Neck nasal discharge 04/2016 Cardiovascular No chest pain/pressure 04/2016 Cardiovascular edema 09/01/2015 Respiratory No productive sputum 2015 Respiratory No chest congestion 2015 Respiratory No cough 09/01/2015 Gastrointestinal No abdominal pain 2015 Gastrointestinal constipation 09/01/2015 Gastrointestinal diarrhea 09/01/2015 Genitourinary/Nephrology No dysuria 08/31 Genitourinary/Nephrology urinary urgency 09/01/2015 Musculoskeletal joint complaint 2015 Dermatologic rash 09/01/2015 Neurologic No alteration of consciousness 09/01/2015 Psychiatric depression 09/01/2015 Endocrine No dry or coarse skin 2015 Dermatologic sores 09/01/2015 Constitutional No recent illness 2015 Constitutional No anorexia 08/10/2015 Constitutional night sweats 08/10/2015 Constitutional No chills 08/10/2015 Constitutional No diaphoresis 08/10/2015 Constitutional fatigue 08/10/2015 Constitutional No fever 08/10/2015 Constitutional No insomnia 08/10/2015 Constitutional No malaise 08/10/2015 Constitutional No weight gain 08/10/2015 Constitutional No weight loss 08/10/2015 Eyes No eye discharge 08/10/2015 Eyes No eye erythema 08/10/2015 Ears/Nose/Throat/Neck No dizziness 2015 Ears/Nose/Throat/Neck headache 2015 Ears/Nose/Throat/Neck nasal allergies Ears/Nose/Throat/Neck nasal discharge Ears/Nose/Throat/Neck otalgia 08/10/2015 Cardiovascular No chest pain/pressure Cardiovascular edema 08/10/2015 Respiratory No productive sputum 2015 Respiratory No chest congestion 2015 Respiratory No cough 08/10/2015 Gastrointestinal No abdominal pain 2015 Gastrointestinal constipation 08/10/2015 Gastrointestinal diarrhea 08/10/2015 Genitourinary/Nephrology No dysuria 08/09 Genitourinary/Nephrology urinary urgency 08/10/2015 Musculoskeletal joint complaint 2015 Dermatologic rash 08/10/2015 Neurologic No alteration of consciousness 08/10/2015 Psychiatric depression 08/10/2015 Endocrine No dry or coarse skin 2015 Constitutional recent illness 06/26/2015 Constitutional No night sweats 2015 Constitutional chills 06/26/2015 Constitutional diaphoresis 06/26/2015 Constitutional fatigue 06/26/2015 Eyes No eye discharge 06/26/2015 Eyes No eye erythema 06/26/2015 Ears/Nose/Throat/Neck dizziness 2015 Ears/Nose/Throat/Neck nasal allergies 09/2015 Ears/Nose/Throat/Neck nasal discharge 09/2015 Ears/Nose/Throat/Neck sinus congestion Cardiovascular No chest pain/pressure 09/2015 Cardiovascular edema 06/26/2015 Respiratory productive sputum 06/26/2015 Respiratory chest congestion 06/26/2015 Respiratory dyspnea on exertion 2015 Gastrointestinal No abdominal pain 2015 Gastrointestinal nausea 06/26/2015 Gastrointestinal No vomiting 06/26/2015 Genitourinary/Nephrology No dysuria 06/26 Musculoskeletal joint complaint 2015 Neurologic No alteration of consciousness 06/26/2015 Psychiatric anxiety 06/26/2015 Psychiatric depression 06/26/2015 Constitutional recent illness 04/14/2015 Constitutional anorexia 04/14/2015 Constitutional No night sweats 2014 Constitutional chills 04/14/2015 Constitutional diaphoresis 04/14/2015 Constitutional fatigue 04/14/2015 Constitutional No fever 04/14/2015 Constitutional No insomnia 04/14/2015 Constitutional No malaise 04/14/2015 Constitutional No weight loss 04/14/2015 Constitutional weight gain 04/14/2015 Eyes No eye discharge 04/14/2015 Eyes No eye erythema 04/14/2015 Ears/Nose/Throat/Neck nasal allergies Ears/Nose/Throat/Neck nasal discharge Ears/Nose/Throat/Neck dizziness 2014 Ears/Nose/Throat/Neck sinus congestion Cardiovascular No chest pain/pressure Cardiovascular edema 04/14/2015 Respiratory No productive sputum 2014 Respiratory No chest congestion 2014 Respiratory dyspnea on exertion 2014 Gastrointestinal No abdominal pain 2014 Gastrointestinal nausea 04/14/2015 Gastrointestinal No vomiting 04/14/2015 Genitourinary/Nephrology No dysuria 04/14 Musculoskeletal joint complaint 2014 Dermatologic rash 04/14/2015 Dermatologic sores 04/14/2015 Neurologic No alteration of consciousness 04/14/2015 Psychiatric anxiety 04/14/2015 Psychiatric depression 04/14/2015 Constitutional recent illness 03/03/2015 Constitutional No anorexia 03/03/2015 Constitutional No night sweats 2014 Constitutional No diaphoresis 03/03/2015 Constitutional fatigue 03/03/2015 Constitutional chills 03/03/2015 Constitutional fever 03/03/2015 Constitutional No insomnia 03/03/2015 Constitutional No malaise 03/03/2015 Constitutional No weight loss 03/03/2015 Constitutional No weight gain 03/03/2015 Constitutional No obesity 03/03/2015 Cardiovascular chest pain/pressure 2014 Cardiovascular edema 03/03/2015 Respiratory cough 03/03/2015 Respiratory productive sputum 03/03/2015 Respiratory dyspnea 03/03/2015 Respiratory dyspnea on exertion 2014 Respiratory No chest tightness 2014 Ears/Nose/Throat/Neck nasal allergies Ears/Nose/Throat/Neck nasal discharge Ears/Nose/Throat/Neck otalgia 03/03/2015 Ears/Nose/Throat/Neck No otitis media Ears/Nose/Throat/Neck No otorrhea 2014 Ears/Nose/Throat/Neck dizziness 2014 Ears/Nose/Throat/Neck No sore throat Ears/Nose/Throat/Neck sinus congestion Ears/Nose/Throat/Neck postnasal drip Gastrointestinal nausea 03/03/2015 Gastrointestinal No vomiting 03/03/2015 Gastrointestinal diarrhea 03/03/2015 Gastrointestinal constipation 03/03/2015 Genitourinary/Nephrology urinary frequency 03/03/2015 Gastrointestinal abdominal pain 2014 Genitourinary/Nephrology No hematuria Genitourinary/Nephrology No anuria/oliguria 03/03/2015 Genitourinary/Nephrology flank pain 03/03 Genitourinary/Nephrology dysuria 2014 Musculoskeletal back pain 03/03/2015 Musculoskeletal myalgias 03/03/2015 Dermatologic rash 03/03/2015 Dermatologic erythema 03/03/2015 Psychiatric depression 03/03/2015 Psychiatric anxiety 03/03/2015 Endocrine diabetes mellitus type 2 2014 Eyes eye tearing 03/03/2015 Eyes vision change 03/03/2015 Eyes eye pain 03/03/2015 Constitutional recent illness 01/15/2015 Constitutional No anorexia 01/15/2015 Constitutional No night sweats 2014 Constitutional chills 01/15/2015 Constitutional diaphoresis 01/15/2015 Constitutional fatigue 01/15/2015 Constitutional fever 01/15/2015 Constitutional No insomnia 01/15/2015 Constitutional malaise 01/15/2015 Eyes No eye discharge 01/15/2015 Eyes No eye erythema 01/15/2015 Ears/Nose/Throat/Neck dizziness 2014 Ears/Nose/Throat/Neck headache 2014 Ears/Nose/Throat/Neck nasal allergies Cardiovascular No chest pain/pressure Cardiovascular edema 01/15/2015 Cardiovascular exercise intolerance 01/15 Respiratory No productive sputum 2014 Respiratory No chest congestion 2014 Respiratory dyspnea on exertion 2014 Gastrointestinal No abdominal pain 2014 Gastrointestinal No constipation 2014 Gastrointestinal No diarrhea 01/15/2015 Gastrointestinal No vomiting 01/15/2015 Gastrointestinal nausea 01/15/2015 Genitourinary/Nephrology No dysuria 01/15 Musculoskeletal joint complaint 2014 Dermatologic rash 01/15/2015 Dermatologic sores 01/15/2015 Neurologic No alteration of consciousness 01/15/2015 Psychiatric depression 01/15/2015 Psychiatric anxiety 01/15/2015 Constitutional recent illness 01/01/2015 Constitutional No anorexia 01/01/2015 Constitutional No night sweats 2014 Constitutional chills 01/01/2015 Constitutional diaphoresis 01/01/2015 Constitutional fatigue 01/01/2015 Constitutional No fever 01/01/2015 Constitutional insomnia 01/01/2015 Constitutional No malaise 01/01/2015 Eyes No eye discharge 01/01/2015 Eyes No eye erythema 01/01/2015 Ears/Nose/Throat/Neck No dizziness 2014 Ears/Nose/Throat/Neck nasal allergies Ears/Nose/Throat/Neck nasal discharge Cardiovascular No chest pain/pressure Respiratory No productive sputum 2014 Respiratory chest congestion 01/01/2015 Respiratory cough 01/01/2015 Gastrointestinal abdominal pain 2014 Gastrointestinal No constipation 2014 Gastrointestinal No diarrhea 01/01/2015 Gastrointestinal nausea 01/01/2015 Gastrointestinal vomiting 01/01/2015 Genitourinary/Nephrology dysuria 2014 Musculoskeletal joint complaint 2014 Dermatologic rash 01/01/2015 Dermatologic No sores 01/01/2015 Neurologic No alteration of consciousness 01/01/2015 Psychiatric anxiety 01/01/2015 Psychiatric depression 01/01/2015 Cardiovascular edema 01/01/2015 Constitutional insomnia 11/04/2014 Constitutional fatigue 11/04/2014 Constitutional recent illness 11/04/2014 Constitutional No night sweats 2014 Constitutional No anorexia 11/04/2014 Constitutional chills 11/04/2014 Constitutional diaphoresis 11/04/2014 Constitutional No fever 11/04/2014 Constitutional No malaise 11/04/2014 Constitutional No weight loss 11/04/2014 Constitutional No weight gain 11/04/2014 Eyes No eye discharge 11/04/2014 Eyes No eye erythema 11/04/2014 Gastrointestinal abdominal pain 2014 Gastrointestinal No constipation 2014 Gastrointestinal No diarrhea 11/04/2014 Gastrointestinal nausea 11/04/2014 Gastrointestinal vomiting 11/04/2014 Respiratory No productive sputum 2014 Respiratory chest congestion 11/04/2014 Respiratory cough 11/04/2014 Ears/Nose/Throat/Neck No dizziness 2014 Ears/Nose/Throat/Neck nasal allergies Ears/Nose/Throat/Neck nasal discharge Cardiovascular No chest pain/pressure Genitourinary/Nephrology dysuria 2014 Musculoskeletal joint complaint 2014 Dermatologic No rash 11/04/2014 Dermatologic No sores 11/04/2014 Neurologic No alteration of consciousness 11/04/2014 Psychiatric anxiety 11/04/2014 Psychiatric depression 11/04/2014 Constitutional No recent illness 2014 Constitutional No anorexia 09/08/2014 Constitutional No night sweats 2014 Constitutional No chills 09/08/2014 Constitutional No diaphoresis 09/08/2014 Constitutional fatigue 09/08/2014 Constitutional No fever 09/08/2014 Constitutional No insomnia 09/08/2014 Constitutional No malaise 09/08/2014 Constitutional No weight loss 09/08/2014 Constitutional No weight gain 09/08/2014 Eyes No eye discharge 09/08/2014 Eyes No eye erythema 09/08/2014 Ears/Nose/Throat/Neck nasal allergies Ears/Nose/Throat/Neck nasal discharge Ears/Nose/Throat/Neck headache 2014 Ears/Nose/Throat/Neck dizziness 2014 Ears/Nose/Throat/Neck otalgia 09/08/2014 Cardiovascular No chest pain/pressure Cardiovascular edema 09/08/2014 Respiratory No productive sputum 2014 Respiratory No chest congestion 2014 Respiratory cough 09/08/2014 Gastrointestinal No constipation 2014 Gastrointestinal diarrhea 09/08/2014 Genitourinary/Nephrology No dysuria 09/08 Dermatologic rash 09/08/2014 Neurologic No alteration of consciousness 09/08/2014 Constitutional fever 08/29/2014 Constitutional No chills 08/29/2014 Eyes eye tearing 08/29/2014 Eyes eye discharge 08/29/2014 Ears/Nose/Throat/Neck No dizziness 2014 Ears/Nose/Throat/Neck facial pain 2014 Cardiovascular No palpitations 2014 Cardiovascular No chest pain/pressure 02/2015 Cardiovascular dyspnea 08/29/2014 Respiratory cough 08/29/2014 Respiratory No cigarette smoking 2014 Gastrointestinal No diarrhea 08/29/2014 Gastrointestinal No constipation 2014 Gastrointestinal hemorrhoids 08/29/2014 Genitourinary/Nephrology No dysuria 08/29 Genitourinary/Nephrology urinary frequency 08/29/2014 Musculoskeletal back pain 08/29/2014 Musculoskeletal myalgias 08/29/2014 Dermatologic rash 08/29/2014 Neurologic No alteration of consciousness 08/29/2014 Psychiatric anxiety 08/29/2014 Psychiatric depression 08/29/2014 Constitutional No recent illness 2014 Constitutional No anorexia 06/30/2014 Constitutional No night sweats 2014 Constitutional No chills 06/30/2014 Constitutional No diaphoresis 06/30/2014 Constitutional fatigue 06/30/2014 Constitutional No fever 06/30/2014 Constitutional No insomnia 06/30/2014 Constitutional No malaise 06/30/2014 Constitutional No weight loss 06/30/2014 Constitutional No weight gain 06/30/2014 Eyes No eye discharge 06/30/2014 Eyes No eye erythema 06/30/2014 Respiratory cough 06/30/2014 Cardiovascular No chest pain/pressure 01/2015 Cardiovascular edema 06/30/2014 Ears/Nose/Throat/Neck dizziness 2014 Ears/Nose/Throat/Neck headache 2014 Ears/Nose/Throat/Neck nasal allergies 01/2015 Ears/Nose/Throat/Neck nasal discharge 01/2015 Ears/Nose/Throat/Neck otalgia 06/30/2014 Respiratory No chest congestion 2014 Gastrointestinal vomiting 06/30/2014 Gastrointestinal nausea 06/30/2014 Gastrointestinal No constipation 2014 Gastrointestinal diarrhea 06/30/2014 Genitourinary/Nephrology No dysuria 06/30 Musculoskeletal joint complaint 2014 Dermatologic rash 06/30/2014 Neurologic No alteration of consciousness 06/30/2014 Psychiatric anxiety 06/30/2014 Psychiatric depression 06/30/2014 Constitutional recent illness 06/12/2014 Constitutional No anorexia 06/12/2014 Constitutional No night sweats 2014 Constitutional No chills 06/12/2014 Constitutional No diaphoresis 06/12/2014 Constitutional fatigue 06/12/2014 Constitutional No fever 06/12/2014 Constitutional insomnia 06/12/2014 Constitutional No malaise 06/12/2014 Constitutional No weight loss 06/12/2014 Constitutional weight gain 06/12/2014 Constitutional obesity 06/12/2014 Eyes No eye erythema 06/12/2014 Eyes No eye discharge 06/12/2014 Ears/Nose/Throat/Neck dizziness 2014 Ears/Nose/Throat/Neck headache 2014 Ears/Nose/Throat/Neck nasal allergies Ears/Nose/Throat/Neck nasal discharge Ears/Nose/Throat/Neck otalgia 06/12/2014 Ears/Nose/Throat/Neck sinus congestion Ears/Nose/Throat/Neck No sore throat Cardiovascular No chest pain/pressure Cardiovascular No dyspnea 06/12/2014 Cardiovascular edema 06/12/2014 Cardiovascular exercise intolerance 06/12 Cardiovascular fatigue 06/12/2014 Respiratory No productive sputum 2014 Respiratory No chest congestion 2014 Respiratory cough 06/12/2014 Respiratory dyspnea on exertion 2014 Gastrointestinal No abdominal pain 2014 Gastrointestinal No constipation 2014 Gastrointestinal diarrhea 06/12/2014 Gastrointestinal nausea 06/12/2014 Gastrointestinal vomiting 06/12/2014 Genitourinary/Nephrology No dysuria 06/12 Musculoskeletal joint complaint 2014 Musculoskeletal sciatica 06/12/2014 Dermatologic sores 06/12/2014 Neurologic No alteration of consciousness 06/12/2014 Psychiatric anxiety 06/12/2014 Psychiatric depression 06/12/2014 Endocrine polyuria 06/12/2014 Hematologic/Lymphatic No abnormal bleeding and bruising 06/12/2014 Constitutional No recent illness 2014 Constitutional No anorexia 05/26/2014 Constitutional No night sweats 2014 Constitutional No chills 05/26/2014 Constitutional No diaphoresis 05/26/2014 Constitutional fatigue 05/26/2014 Constitutional No fever 05/26/2014 Constitutional No insomnia 05/26/2014 Constitutional No malaise 05/26/2014 Constitutional No weight loss 05/26/2014 Constitutional No weight gain 05/26/2014 Eyes No eye discharge 05/26/2014 Eyes No eye erythema 05/26/2014 Ears/Nose/Throat/Neck No dizziness 2014 Ears/Nose/Throat/Neck No headache 2014 Ears/Nose/Throat/Neck nasal allergies 09/2014 Ears/Nose/Throat/Neck nasal discharge 09/2014 Ears/Nose/Throat/Neck No otalgia 2014 Ears/Nose/Throat/Neck sinus congestion Ears/Nose/Throat/Neck No sore throat 09/2014 Cardiovascular No chest pain/pressure 09/2014 Cardiovascular No dyspnea 05/26/2014 Cardiovascular edema 05/26/2014 Cardiovascular fatigue 05/26/2014 Respiratory No productive sputum 2014 Respiratory No chest congestion 2014 Respiratory dyspnea on exertion 2014 Respiratory No dyspnea 05/26/2014 Gastrointestinal No abdominal pain 2014 Gastrointestinal No constipation 2014 Gastrointestinal No diarrhea 05/26/2014 Gastrointestinal No nausea 05/26/2014 Gastrointestinal No vomiting 05/26/2014 Genitourinary/Nephrology No dysuria 05/26 Musculoskeletal joint complaint 2014 Dermatologic No rash 05/26/2014 Neurologic No alteration of consciousness 05/26/2014 Psychiatric anxiety 05/26/2014 Respiratory No cough 05/26/2014 Dermatologic sores 05/26/2014 Constitutional fatigue 04/15/2014 Constitutional No fever 04/15/2014 Eyes No blindness 04/15/2014 Eyes No vision change 04/15/2014 Ears/Nose/Throat/Neck dizziness 2013 Ears/Nose/Throat/Neck facial pain 2013 Ears/Nose/Throat/Neck nasal allergies Ears/Nose/Throat/Neck nasal discharge Cardiovascular edema 04/15/2014 Cardiovascular exercise intolerance 04/15 Cardiovascular fatigue 04/15/2014 Cardiovascular hypertension 04/15/2014 Cardiovascular No palpitations 2013 Respiratory cough 04/15/2014 Respiratory No dyspnea 04/15/2014 Gastrointestinal No abdominal pain 2013 Gastrointestinal No constipation 2013 Gastrointestinal No diarrhea 04/15/2014 Dermatologic No rash 04/15/2014 Dermatologic No sores 04/15/2014 Endocrine diabetes mellitus type 2 2013 Musculoskeletal stiffness 04/15/2014 Musculoskeletal arthralgia(s) 04/15/2014 Psychiatric anxiety 04/15/2014 Psychiatric depression 04/15/2014 Constitutional recent illness 03/25/2014 Constitutional No anorexia 03/25/2014 Constitutional No night sweats 2013 Constitutional chills 03/25/2014 Constitutional diaphoresis 03/25/2014 Constitutional fatigue 03/25/2014 Constitutional fever 03/25/2014 Constitutional No insomnia 03/25/2014 Constitutional No malaise 03/25/2014 Constitutional No weight loss 03/25/2014 Constitutional No weight gain 03/25/2014 Eyes No eye discharge 03/25/2014 Eyes No eye erythema 03/25/2014 Ears/Nose/Throat/Neck dizziness 2013 Ears/Nose/Throat/Neck No headache 2013 Ears/Nose/Throat/Neck nasal allergies 08/2013 Ears/Nose/Throat/Neck nasal discharge 08/2013 Ears/Nose/Throat/Neck otalgia 03/25/2014 Ears/Nose/Throat/Neck sinus congestion Ears/Nose/Throat/Neck No sore throat 08/2013 Cardiovascular No chest pain/pressure 08/2013 Cardiovascular dyspnea 03/25/2014 Cardiovascular edema 03/25/2014 Cardiovascular fatigue 03/25/2014 Respiratory No productive sputum 2013 Respiratory No chest congestion 2013 Respiratory cough 03/25/2014 Respiratory No dyspnea 03/25/2014 Respiratory dyspnea on exertion 2013 Gastrointestinal No abdominal pain 2013 Gastrointestinal No diarrhea 03/25/2014 Gastrointestinal No constipation 2013 Gastrointestinal nausea 03/25/2014 Gastrointestinal No vomiting 03/25/2014 Genitourinary/Nephrology No dysuria 03/25 Musculoskeletal joint complaint 2013 Dermatologic rash 03/25/2014 Neurologic No alteration of consciousness 03/25/2014 Psychiatric anxiety 03/25/2014 Gastrointestinal No abdominal pain 2013 Gastrointestinal No constipation 2013 Gastrointestinal No diarrhea 03/03/2014 Gastrointestinal No vomiting 03/03/2014 Gastrointestinal nausea 03/03/2014 Genitourinary/Nephrology No dysuria 03/03 Respiratory cough 03/03/2014 Respiratory No chest congestion 2013 Cardiovascular No chest pain/pressure Cardiovascular edema 03/03/2014 Ears/Nose/Throat/Neck No dizziness 2013 Ears/Nose/Throat/Neck headache 2013 Ears/Nose/Throat/Neck nasal allergies Ears/Nose/Throat/Neck nasal discharge Eyes No eye erythema 03/03/2014 Eyes No eye discharge 03/03/2014 Constitutional No recent illness 2013 Constitutional No anorexia 03/03/2014 Constitutional No night sweats 2013 Constitutional chills 03/03/2014 Constitutional diaphoresis 03/03/2014 Constitutional fatigue 03/03/2014 Constitutional fever 03/03/2014 Constitutional No insomnia 03/03/2014 Constitutional No malaise 03/03/2014 Musculoskeletal joint complaint 2013 Dermatologic sores 03/03/2014 Constitutional recent illness 02/13/2014 Constitutional No anorexia 02/13/2014 Constitutional No night sweats 2013 Constitutional No chills 02/13/2014 Constitutional No diaphoresis 02/13/2014 Constitutional fatigue 02/13/2014 Constitutional No fever 02/13/2014 Constitutional No insomnia 02/13/2014 Constitutional No malaise 02/13/2014 Eyes No eye discharge 02/13/2014 Eyes No eye erythema 02/13/2014 Ears/Nose/Throat/Neck dizziness 2013 Ears/Nose/Throat/Neck headache 2013 Ears/Nose/Throat/Neck nasal allergies Ears/Nose/Throat/Neck nasal discharge Cardiovascular No chest pain/pressure Cardiovascular dyspnea 02/13/2014 Cardiovascular edema 02/13/2014 Cardiovascular exercise intolerance 02/13 Respiratory No productive sputum 2013 Respiratory No chest congestion 2013 Respiratory dyspnea on exertion 2013 Gastrointestinal No abdominal pain 2013 Gastrointestinal No constipation 2013 Gastrointestinal No diarrhea 02/13/2014 Genitourinary/Nephrology dysuria 2013 Musculoskeletal joint complaint 2013 Dermatologic sores 02/13/2014 Neurologic No alteration of consciousness 02/13/2014 Psychiatric anxiety 02/13/2014 Psychiatric depression 02/13/2014 Eyes vision change 02/13/2014 Ears/Nose/Throat/Neck otalgia 02/13/2014 Ears/Nose/Throat/Neck sinus congestion Gastrointestinal nausea 02/13/2014 Gastrointestinal No vomiting 02/13/2014 Constitutional No anorexia 01/27/2014 Constitutional No night sweats 2013 Constitutional No chills 01/27/2014 Constitutional No diaphoresis 01/27/2014 Constitutional fatigue 01/27/2014 Constitutional No fever 01/27/2014 Constitutional No insomnia 01/27/2014 Constitutional No malaise 01/27/2014 Eyes No eye discharge 01/27/2014 Eyes No eye erythema 01/27/2014 Ears/Nose/Throat/Neck No dizziness 2013 Ears/Nose/Throat/Neck headache 2013 Ears/Nose/Throat/Neck nasal allergies 12/2013 Ears/Nose/Throat/Neck nasal discharge 12/2013 Cardiovascular No chest pain/pressure 12/2013 Cardiovascular dyspnea 01/27/2014 Cardiovascular edema 01/27/2014 Cardiovascular exercise intolerance 01/27 Respiratory No productive sputum 2013 Respiratory No chest congestion 2013 Respiratory dyspnea on exertion 2013 Gastrointestinal No abdominal pain 2013 Gastrointestinal No constipation 2013 Gastrointestinal No diarrhea 01/27/2014 Genitourinary/Nephrology dysuria 2013 Musculoskeletal joint complaint 2013 Dermatologic sores 01/27/2014 Neurologic No alteration of consciousness 01/27/2014 Psychiatric anxiety 01/27/2014 Psychiatric depression 01/27/2014 Constitutional recent illness 01/27/2014 Constitutional No recent illness 2013 Constitutional No anorexia 12/26/2013 Constitutional No night sweats 2013 Constitutional No chills 12/26/2013 Constitutional No diaphoresis 12/26/2013 Constitutional fatigue 12/26/2013 Constitutional No fever 12/26/2013 Constitutional insomnia 12/26/2013 Constitutional No malaise 12/26/2013 Constitutional No weight loss 12/26/2013 Constitutional No weight gain 12/26/2013 Eyes No eye discharge 12/26/2013 Eyes No eye erythema 12/26/2013 Ears/Nose/Throat/Neck No dizziness 2013 Ears/Nose/Throat/Neck nasal allergies 11/2013 Cardiovascular No chest pain/pressure 11/2013 Cardiovascular edema 12/26/2013 Respiratory No productive sputum 2013 Respiratory No chest congestion 2013 Respiratory cough 12/26/2013 Gastrointestinal No abdominal pain 2013 Gastrointestinal No constipation 2013 Gastrointestinal No diarrhea 12/26/2013 Genitourinary/Nephrology No dysuria 12/26 Musculoskeletal joint complaint 2013 Constitutional No recent illness 2013 Constitutional No anorexia 12/12/2013 Constitutional No night sweats 2013 Constitutional No chills 12/12/2013 Constitutional No diaphoresis 12/12/2013 Constitutional fatigue 12/12/2013 Constitutional No fever 12/12/2013 Constitutional insomnia 12/12/2013 Constitutional No malaise 12/12/2013 Constitutional No weight loss 12/12/2013 Constitutional No weight gain 12/12/2013 Eyes No eye discharge 12/12/2013 Eyes No eye erythema 12/12/2013 Ears/Nose/Throat/Neck nasal allergies Ears/Nose/Throat/Neck No dizziness 2013 Cardiovascular No chest pain/pressure Respiratory No productive sputum 2013 Respiratory No chest congestion 2013 Respiratory No cough 12/12/2013 Cardiovascular edema 12/12/2013 Gastrointestinal No abdominal pain 2013 Gastrointestinal No constipation 2013 Gastrointestinal No diarrhea 12/12/2013 Genitourinary/Nephrology No dysuria 12/12 Genitourinary/Nephrology No pelvic pain 12/12/2013 Musculoskeletal joint complaint 2013 Dermatologic sores 12/12/2013 Constitutional recent illness 11/14/2013 Constitutional No anorexia 11/14/2013 Constitutional No night sweats 2013 Constitutional chills 11/14/2013 Constitutional diaphoresis 11/14/2013 Constitutional fatigue 11/14/2013 Constitutional No fever 11/14/2013 Constitutional No insomnia 11/14/2013 Constitutional No malaise 11/14/2013 Eyes No eye discharge 11/14/2013 Eyes No eye erythema 11/14/2013 Ears/Nose/Throat/Neck dizziness 2013 Ears/Nose/Throat/Neck headache 2013 Ears/Nose/Throat/Neck nasal allergies Ears/Nose/Throat/Neck nasal discharge Ears/Nose/Throat/Neck otalgia 11/14/2013 Cardiovascular No chest pain/pressure Respiratory productive sputum 11/14/2013 Respiratory No chest congestion 2013 Respiratory cough 11/14/2013 Respiratory wheezing 11/14/2013 Gastrointestinal No abdominal pain 2013 Gastrointestinal No constipation 2013 Gastrointestinal No diarrhea 11/14/2013 Gastrointestinal nausea 11/14/2013 Gastrointestinal No vomiting 11/14/2013 Genitourinary/Nephrology No dysuria 11/14 Musculoskeletal joint complaint 2013 Dermatologic No rash 11/14/2013 Dermatologic No sores 11/14/2013 Neurologic No alteration of consciousness 11/14/2013 Psychiatric anxiety 11/14/2013 Psychiatric depression 11/14/2013 Constitutional No recent illness 2013 Constitutional No anorexia 10/21/2013 Constitutional No night sweats 2013 Constitutional No chills 10/21/2013 Constitutional No diaphoresis 10/21/2013 Constitutional fatigue 10/21/2013 Constitutional No fever 10/21/2013 Constitutional No insomnia 10/21/2013 Constitutional No malaise 10/21/2013 Eyes No eye discharge 10/21/2013 Eyes No eye erythema 10/21/2013 Ears/Nose/Throat/Neck No dizziness 2013 Cardiovascular No chest pain/pressure 06/2013 Cardiovascular fatigue 10/21/2013 Cardiovascular edema 10/21/2013 Respiratory No productive sputum 2013 Respiratory No chest congestion 2013 Respiratory dyspnea on exertion 2013 Gastrointestinal No abdominal pain 2013 Gastrointestinal No constipation 2013 Gastrointestinal No diarrhea 10/21/2013 Constitutional No recent illness 2013 Constitutional No diaphoresis 10/03/2013 Constitutional fatigue 10/03/2013 Constitutional No fever 10/03/2013 Constitutional No insomnia 10/03/2013 Constitutional No malaise 10/03/2013 Constitutional No chills 10/03/2013 Constitutional No night sweats 2013 Constitutional No anorexia 10/03/2013 Eyes No eye discharge 10/03/2013 Eyes No eye erythema 10/03/2013 Ears/Nose/Throat/Neck No dizziness 2013 Ears/Nose/Throat/Neck headache 2013 Ears/Nose/Throat/Neck nasal discharge Ears/Nose/Throat/Neck nasal allergies Cardiovascular No chest pain/pressure Cardiovascular dyspnea 10/03/2013 Cardiovascular edema 10/03/2013 Cardiovascular exercise intolerance 10/03 Respiratory No productive sputum 2013 Respiratory No chest congestion 2013 Respiratory dyspnea on exertion 2013 Gastrointestinal No abdominal pain 2013 Gastrointestinal No constipation 2013 Gastrointestinal No diarrhea 10/03/2013 Genitourinary/Nephrology dysuria 2013 Musculoskeletal joint complaint 2013 Dermatologic sores 10/03/2013 Neurologic No alteration of consciousness 10/03/2013 Psychiatric anxiety 10/03/2013 Psychiatric depression 10/03/2013 Constitutional No recent illness 2013 Constitutional No anorexia 09/27/2013 Constitutional No night sweats 2013 Constitutional No chills 09/27/2013 Constitutional No diaphoresis 09/27/2013 Constitutional fatigue 09/27/2013 Constitutional No fever 09/27/2013 Constitutional No insomnia 09/27/2013 Constitutional No malaise 09/27/2013 Constitutional No weight loss 09/27/2013 Constitutional No weight gain 09/27/2013 Constitutional No recent illness 2013 Constitutional No anorexia 09/23/2013 Constitutional No night sweats 2013 Constitutional No chills 09/23/2013 Constitutional No diaphoresis 09/23/2013 Constitutional fatigue 09/23/2013 Constitutional No insomnia 09/23/2013 Constitutional No fever 09/23/2013 Constitutional No weight gain 09/23/2013 Constitutional No weight loss 09/23/2013 Constitutional No malaise 09/23/2013 Constitutional No recent illness 2013 Constitutional No anorexia 09/20/2013 Constitutional No night sweats 2013 Constitutional No chills 09/20/2013 Constitutional No diaphoresis 09/20/2013 Constitutional fatigue 09/20/2013 Constitutional No fever 09/20/2013 Constitutional No insomnia 09/20/2013 Constitutional No malaise 09/20/2013 Eyes No eye discharge 09/20/2013 Eyes No eye erythema 09/20/2013 Ears/Nose/Throat/Neck dizziness 2013 Ears/Nose/Throat/Neck headache 2013 Ears/Nose/Throat/Neck No nasal discharge 09/20/2013 Cardiovascular No chest pain/pressure 06/2013 Cardiovascular dyspnea 09/20/2013 Cardiovascular edema 09/20/2013 Respiratory No productive sputum 2013 Respiratory No chest congestion 2013 Respiratory No cough 09/20/2013 Respiratory dyspnea on exertion 2013 Gastrointestinal No abdominal pain 2013 Gastrointestinal No constipation 2013 Gastrointestinal No diarrhea 09/20/2013 Genitourinary/Nephrology No dysuria 09/20 Dermatologic No rash 09/20/2013 Dermatologic sores 09/20/2013 Neurologic No alteration of consciousness 09/20/2013 Constitutional recent illness 09/10/2013 Constitutional No anorexia 09/10/2013 Constitutional No night sweats 2013 Constitutional No chills 09/10/2013 Constitutional No diaphoresis 09/10/2013 Constitutional fatigue 09/10/2013 Constitutional No fever 09/10/2013 Constitutional No insomnia 09/10/2013 Constitutional No malaise 09/10/2013 Constitutional No weight loss 09/10/2013 Constitutional No weight gain 09/10/2013 Eyes No eye discharge 09/10/2013 Eyes No eye erythema 09/10/2013 Ears/Nose/Throat/Neck No dizziness 2013 Ears/Nose/Throat/Neck No headache 2013 Cardiovascular No chest pain/pressure Cardiovascular edema 09/10/2013 Respiratory No productive sputum 2013 Respiratory dyspnea 09/10/2013 Respiratory cough 09/10/2013 Gastrointestinal No abdominal pain 2013 Gastrointestinal No constipation 2013 Gastrointestinal No diarrhea 09/10/2013 Genitourinary/Nephrology No dysuria 09/10 Neurologic No alteration of consciousness 09/10/2013 Constitutional No recent illness 2013 Constitutional No anorexia 08/19/2013 Constitutional No night sweats 2013 Constitutional No chills 08/19/2013 Constitutional No diaphoresis 08/19/2013 Constitutional fatigue 08/19/2013 Constitutional No fever 08/19/2013 Constitutional No insomnia 08/19/2013 Eyes No eye discharge 08/19/2013 Eyes No eye erythema 08/19/2013 Ears/Nose/Throat/Neck No headache 2013 Ears/Nose/Throat/Neck nasal allergies Ears/Nose/Throat/Neck nasal discharge Cardiovascular No chest pain/pressure Cardiovascular dyspnea 08/19/2013 Cardiovascular edema 08/19/2013 Cardiovascular fatigue 08/19/2013 Respiratory No productive sputum 2013 Respiratory No chest congestion 2013 Respiratory No cough 08/19/2013 Respiratory dyspnea on exertion 2013 Gastrointestinal No abdominal pain 2013 Gastrointestinal No diarrhea 08/19/2013 Gastrointestinal No constipation 2013 Genitourinary/Nephrology No dysuria 08/19 Musculoskeletal joint complaint 2013 Musculoskeletal shoulder pain 08/19/2013 Dermatologic No rash 08/19/2013 Dermatologic No sores 08/19/2013 Neurologic No alteration of consciousness 08/19/2013 Constitutional No recent illness 2013 Constitutional No anorexia 08/12/2013 Constitutional No night sweats 2013 Constitutional No chills 08/12/2013 Constitutional No diaphoresis 08/12/2013 Constitutional No fatigue 08/12/2013 Constitutional fever 08/12/2013 Constitutional No insomnia 08/12/2013 Eyes No eye discharge 08/12/2013 Eyes No eye erythema 08/12/2013 Ears/Nose/Throat/Neck dizziness 2013 Ears/Nose/Throat/Neck No headache 2013 Ears/Nose/Throat/Neck nasal allergies Ears/Nose/Throat/Neck nasal discharge Cardiovascular No chest pain/pressure Cardiovascular dyspnea 08/12/2013 Cardiovascular edema 08/12/2013 Respiratory No productive sputum 2013 Respiratory No chest congestion 2013 Respiratory No cough 08/12/2013 Respiratory dyspnea 08/12/2013 Respiratory dyspnea on exertion 2013 Gastrointestinal No abdominal pain 2013 Gastrointestinal No constipation 2013 Gastrointestinal No diarrhea 08/12/2013 Gastrointestinal No vomiting 08/12/2013 Gastrointestinal No nausea 08/12/2013 Genitourinary/Nephrology No dysuria 08/12 Dermatologic No sores 08/12/2013 Dermatologic No rash 08/12/2013 Constitutional No chills 08/01/2013 Constitutional fatigue 08/01/2013 Constitutional No fever 08/01/2013 Eyes No eye erythema 08/01/2013 Eyes No vision change 08/01/2013 Ears/Nose/Throat/Neck dizziness 2013 Ears/Nose/Throat/Neck No facial pain Ears/Nose/Throat/Neck No headache 2013 Ears/Nose/Throat/Neck No nasal discharge 08/01/2013 Ears/Nose/Throat/Neck No otalgia 2013 Ears/Nose/Throat/Neck No sore throat Cardiovascular No chest pain/pressure Cardiovascular edema 08/01/2013 Cardiovascular exercise intolerance 08/01 Respiratory No productive sputum 2013 Respiratory No chest tightness 2013 Respiratory No cough 08/01/2013 Gastrointestinal No abdominal pain 2013 Gastrointestinal No diarrhea 08/01/2013 Gastrointestinal No nausea 08/01/2013 Gastrointestinal No vomiting 08/01/2013 Genitourinary/Nephrology No dysuria 08/01 Constitutional No recent illness 2013 Constitutional No anorexia 08/01/2013 Constitutional No diaphoresis 08/01/2013 Eyes No eye discharge 08/01/2013 Ears/Nose/Throat/Neck nasal allergies Respiratory dyspnea on exertion 2013 Gastrointestinal No constipation 2013 Neurologic No alteration of consciousness 08/01/2013 Constitutional No fever 07/19/2013 Constitutional No recent illness 2013 Constitutional No chills 07/19/2013 Constitutional fatigue 07/19/2013 Constitutional recent illness 07/15/2013 Constitutional No anorexia 07/15/2013 Constitutional No night sweats 2013 Constitutional No chills 07/15/2013 Constitutional No diaphoresis 07/15/2013 Constitutional fatigue 07/15/2013 Constitutional No fever 07/15/2013 Eyes No eye discharge 07/15/2013 Eyes No eye erythema 07/15/2013 Ears/Nose/Throat/Neck nasal allergies Ears/Nose/Throat/Neck nasal discharge Ears/Nose/Throat/Neck No otalgia 2013 Ears/Nose/Throat/Neck sinus congestion Cardiovascular No chest pain/pressure Cardiovascular dyspnea 07/15/2013 Cardiovascular edema 07/15/2013 Cardiovascular fatigue 07/15/2013 Cardiovascular hypertension 07/15/2013 Respiratory No productive sputum 2013 Respiratory cough 07/15/2013 Respiratory dyspnea 07/15/2013 Gastrointestinal No constipation 2013 Gastrointestinal nausea 07/15/2013 Gastrointestinal No vomiting 07/15/2013 Gastrointestinal No diarrhea 07/15/2013 Genitourinary/Nephrology No dysuria 07/15 Constitutional No recent illness 2013 Constitutional No anorexia 06/27/2013 Constitutional No chills 06/27/2013 Constitutional No diaphoresis 06/27/2013 Constitutional fatigue 06/27/2013 Constitutional No fever 06/27/2013 Eyes No eye discharge 06/27/2013 Eyes No eye erythema 06/27/2013 Eyes No vision change 06/27/2013 Ears/Nose/Throat/Neck dizziness 2013 Ears/Nose/Throat/Neck No facial pain 10/2013 Ears/Nose/Throat/Neck No headache 2013 Ears/Nose/Throat/Neck nasal allergies 10/2013 Ears/Nose/Throat/Neck No nasal discharge 06/27/2013 Ears/Nose/Throat/Neck No otalgia 2013 Ears/Nose/Throat/Neck No sore throat 10/2013 Cardiovascular No chest pain/pressure 10/2013 Cardiovascular edema 06/27/2013 Cardiovascular exercise intolerance 06/27 Respiratory No productive sputum 2013 Respiratory No chest tightness 2013 Respiratory No cough 06/27/2013 Respiratory dyspnea on exertion 2013 Gastrointestinal No abdominal pain 2013 Gastrointestinal No constipation 2013 Gastrointestinal No diarrhea 06/27/2013 Gastrointestinal No nausea 06/27/2013 Gastrointestinal No vomiting 06/27/2013 Genitourinary/Nephrology No dysuria 06/27 Neurologic No alteration of consciousness 06/27/2013 Constitutional fatigue 06/10/2013 Constitutional No fever 06/10/2013 Cardiovascular No edema 06/10/2013 Cardiovascular exercise intolerance 06/10 Cardiovascular fatigue 06/10/2013 Cardiovascular hypertension 06/10/2013 Cardiovascular No palpitations 2013 Respiratory cough 06/10/2013 Respiratory No dyspnea 06/10/2013 Gastrointestinal No abdominal pain 2013 Gastrointestinal No constipation 2013 Gastrointestinal No diarrhea 06/10/2013 Dermatologic No rash 06/10/2013 Dermatologic No sores 06/10/2013 Endocrine diabetes mellitus type 2 2013 Eyes No blindness 06/10/2013 Eyes No vision change 06/10/2013 Ears/Nose/Throat/Neck dizziness 2013 Ears/Nose/Throat/Neck facial pain 2013 Ears/Nose/Throat/Neck nasal allergies Ears/Nose/Throat/Neck nasal discharge Constitutional recent illness 05/07/2013 Constitutional fatigue 05/07/2013 Constitutional No fever 05/07/2013 Cardiovascular No edema 05/07/2013 Cardiovascular exercise intolerance 05/07 Cardiovascular fatigue 05/07/2013 Cardiovascular hypertension 05/07/2013 Cardiovascular No palpitations 2012 Respiratory cough 05/07/2013 Respiratory No dyspnea 05/07/2013 Gastrointestinal No abdominal pain 2012 Gastrointestinal No constipation 2012 Gastrointestinal No diarrhea 05/07/2013 Dermatologic No rash 05/07/2013 Dermatologic No sores 05/07/2013 Endocrine diabetes mellitus type 2 2012 Eyes No blindness 05/07/2013 Eyes No vision change 05/07/2013 Constitutional fatigue 04/16/2013 Constitutional No fever 04/16/2013 Eyes No blindness 04/16/2013 Eyes No vision change 04/16/2013 Ears/Nose/Throat/Neck dizziness 2012 Ears/Nose/Throat/Neck facial pain 2012 Ears/Nose/Throat/Neck nasal allergies Ears/Nose/Throat/Neck nasal discharge Cardiovascular No edema 04/16/2013 Cardiovascular exercise intolerance 04/16 Cardiovascular fatigue 04/16/2013 Cardiovascular hypertension 04/16/2013 Cardiovascular No palpitations 2012 Respiratory cough 04/16/2013 Respiratory No dyspnea 04/16/2013 Gastrointestinal No abdominal pain 2012 Gastrointestinal No constipation 2012 Gastrointestinal No diarrhea 04/16/2013 Dermatologic No rash 04/16/2013 Dermatologic No sores 04/16/2013 Endocrine diabetes mellitus type 2 2012 Constitutional fatigue 03/21/2013 Eyes eye discharge 03/21/2013 Eyes No eye erythema 03/21/2013 Eyes No vision change 03/21/2013 Ears/Nose/Throat/Neck No facial pain Ears/Nose/Throat/Neck No headache 2012 Ears/Nose/Throat/Neck No nasal discharge 03/21/2013 Ears/Nose/Throat/Neck No otalgia 2012 Ears/Nose/Throat/Neck No sore throat Ears/Nose/Throat/Neck dizziness 2012 Cardiovascular No chest pain/pressure Cardiovascular exercise intolerance 03/21 Cardiovascular edema 03/21/2013 Respiratory dyspnea 03/21/2013 Respiratory cough 03/21/2013 Respiratory chest tightness 03/21/2013 Respiratory productive sputum 03/21/2013 Gastrointestinal No abdominal pain 2012 Gastrointestinal constipation 03/21/2013 Gastrointestinal diarrhea 03/21/2013 Gastrointestinal No nausea 03/21/2013 Gastrointestinal No vomiting 03/21/2013 Musculoskeletal back pain 03/21/2013 Genitourinary/Nephrology No dysuria 03/21 Constitutional No chills 03/21/2013 Constitutional No fever 03/21/2013 Constitutional No chills 02/12/2013 Constitutional No fever 02/12/2013 Ears/Nose/Throat/Neck nasal discharge Ears/Nose/Throat/Neck No otalgia 2012 Ears/Nose/Throat/Neck No sore throat Ears/Nose/Throat/Neck sinus congestion Ears/Nose/Throat/Neck No headache 2012 Ears/Nose/Throat/Neck dizziness 2012 Genitourinary/Nephrology No dysuria 02/12 Dermatologic No rash 02/12/2013 Dermatologic No sores 02/12/2013 Constitutional recent illness 02/12/2013 Constitutional fatigue 02/12/2013 Constitutional No diaphoresis 02/12/2013 Constitutional No anorexia 02/12/2013 Eyes No eye erythema 02/12/2013 Eyes No eye discharge 02/12/2013 Respiratory No chest congestion 2012 Respiratory No cough 02/12/2013 Musculoskeletal No joint complaint 2012 Neurologic No alteration of consciousness 02/12/2013 Hematologic/Lymphatic No abnormal bleeding and bruising 02/12/2013 Psychiatric anxiety 02/12/2013 Psychiatric depression 02/12/2013 Constitutional recent illness 02/04/2013 Constitutional fatigue 02/04/2013 Constitutional No fever 02/04/2013 Cardiovascular No edema 02/04/2013 Cardiovascular exercise intolerance 02/04 Cardiovascular fatigue 02/04/2013 Cardiovascular hypertension 02/04/2013 Cardiovascular No palpitations 2012 Respiratory cough 02/04/2013 Respiratory No dyspnea 02/04/2013 Gastrointestinal No abdominal pain 2012 Gastrointestinal No constipation 2012 Gastrointestinal No diarrhea 02/04/2013 Dermatologic No rash 02/04/2013 Dermatologic No sores 02/04/2013 Neurologic headache 02/04/2013 Endocrine diabetes mellitus type 2 2012 Constitutional recent illness 01/17/2013 Constitutional anorexia 01/17/2013 Constitutional chills 01/17/2013 Constitutional diaphoresis 01/17/2013 Constitutional fatigue 01/17/2013 Constitutional fever 01/17/2013 Constitutional insomnia 01/17/2013 Eyes No eye discharge 01/17/2013 Eyes No eye erythema 01/17/2013 Ears/Nose/Throat/Neck dizziness 2012 Ears/Nose/Throat/Neck headache 2012 Ears/Nose/Throat/Neck nasal discharge Ears/Nose/Throat/Neck No sore throat Ears/Nose/Throat/Neck otalgia 01/17/2013 Ears/Nose/Throat/Neck sinus congestion Respiratory No productive sputum 2012 Respiratory No chest congestion 2012 Respiratory dyspnea on exertion 2012 Respiratory dyspnea 01/17/2013 Respiratory No cough 01/17/2013 Gastrointestinal No abdominal pain 2012 Gastrointestinal No constipation 2012 Gastrointestinal No nausea 01/17/2013 Gastrointestinal No vomiting 01/17/2013 Gastrointestinal No diarrhea 01/17/2013 Genitourinary/Nephrology No dysuria 01/17 Dermatologic No rash 01/17/2013 Cardiovascular No chest pain/pressure 04/2013 Cardiovascular dyspnea 12/31/2012 Cardiovascular edema 12/31/2012 Cardiovascular fatigue 12/31/2012 Cardiovascular hypertension 12/31/2012 Respiratory No productive sputum 2012 Respiratory No chest congestion 2012 Gastrointestinal No vomiting 12/31/2012 Gastrointestinal No nausea 12/31/2012 Gastrointestinal No constipation 2012 Gastrointestinal No diarrhea 12/31/2012 Gastrointestinal No abdominal pain 2012 Genitourinary/Nephrology No dysuria 12/31 Constitutional No recent illness 2012 Constitutional No anorexia 12/31/2012 Constitutional No night sweats 2012 Constitutional No chills 12/31/2012 Constitutional No diaphoresis 12/31/2012 Constitutional fatigue 12/31/2012 Constitutional fever 12/31/2012 Eyes No eye discharge 12/31/2012 Eyes No eye erythema 12/31/2012 Ears/Nose/Throat/Neck nasal allergies 04/2013 Ears/Nose/Throat/Neck nasal discharge 04/2013 Ears/Nose/Throat/Neck otalgia 12/31/2012 Ears/Nose/Throat/Neck sinus congestion Ears/Nose/Throat/Neck sore throat 2012 Musculoskeletal No joint complaint 2012 Dermatologic sores 12/31/2012 Dermatologic No rash 12/31/2012 Constitutional recent illness 12/20/2012 Constitutional anorexia 12/20/2012 Constitutional No fever 12/20/2012 Constitutional fatigue 12/20/2012 Constitutional chills 12/20/2012 Eyes No eye discharge 12/20/2012 Eyes No eye erythema 12/20/2012 Cardiovascular No chest pain/pressure 05/2012 Cardiovascular dyspnea 12/20/2012 Respiratory productive sputum 12/20/2012 Respiratory cough 12/20/2012 Respiratory chest congestion 12/20/2012 Gastrointestinal No abdominal pain 2012 Gastrointestinal No constipation 2012 Gastrointestinal diarrhea 12/20/2012 Genitourinary/Nephrology No dysuria 12/20 Musculoskeletal No joint complaint 2012 Genitourinary/Nephrology urinary urgency 12/20/2012 Dermatologic No rash 12/20/2012 Dermatologic sores 12/20/2012 Cardiovascular edema 12/20/2012 Cardiovascular fatigue 12/20/2012 Cardiovascular hypertension 12/20/2012 Constitutional recent illness 10/29/2012 Constitutional fatigue 10/29/2012 Constitutional No fever 10/29/2012 Cardiovascular No edema 10/29/2012 Cardiovascular exercise intolerance 10/29 Cardiovascular fatigue 10/29/2012 Cardiovascular hypertension 10/29/2012 Cardiovascular No palpitations 2012 Respiratory cough 10/29/2012 Respiratory No dyspnea 10/29/2012 Gastrointestinal No abdominal pain 2012 Gastrointestinal No constipation 2012 Gastrointestinal No diarrhea 10/29/2012 Dermatologic No rash 10/29/2012 Dermatologic No sores 10/29/2012 Neurologic headache 10/29/2012 Endocrine diabetes mellitus type 2 2012 Constitutional No recent illness 2012 Constitutional No anorexia 09/21/2012 Constitutional No night sweats 2012 Constitutional No chills 09/21/2012 Constitutional No diaphoresis 09/21/2012 Constitutional No fatigue 09/21/2012 Constitutional No fever 09/21/2012 Constitutional No insomnia 09/21/2012 Constitutional No malaise 09/21/2012 Constitutional recent illness 09/06/2012 Constitutional anorexia 09/06/2012 Constitutional No night sweats 2012 Constitutional No chills 09/06/2012 Constitutional No diaphoresis 09/06/2012 Constitutional No fatigue 09/06/2012 Constitutional No fever 09/06/2012 Constitutional No insomnia 09/06/2012 Constitutional No malaise 09/06/2012 Eyes No eye discharge 09/06/2012 Eyes No eye erythema 09/06/2012 Ears/Nose/Throat/Neck No dizziness 2012 Ears/Nose/Throat/Neck No headache 2012 Respiratory No productive sputum 2012 Respiratory No chest congestion 2012 Genitourinary/Nephrology No dysuria 09/06 Musculoskeletal No joint complaint 2012 Dermatologic No rash 09/06/2012 Dermatologic No sores 09/06/2012 Constitutional recent illness 08/23/2012 Constitutional anorexia 08/23/2012 Constitutional No night sweats 2012 Constitutional No chills 08/23/2012 Constitutional No diaphoresis 08/23/2012 Constitutional No fatigue 08/23/2012 Constitutional No fever 08/23/2012 Constitutional No insomnia 08/23/2012 Constitutional No malaise 08/23/2012 Eyes No eye discharge 08/23/2012 Eyes No eye erythema 08/23/2012 Ears/Nose/Throat/Neck No dizziness 2012 Ears/Nose/Throat/Neck No headache 2012 Respiratory No productive sputum 2012 Respiratory No chest congestion 2012 Genitourinary/Nephrology No dysuria 08/23 Musculoskeletal No joint complaint 2012 Dermatologic No sores 08/23/2012 Dermatologic No rash 08/23/2012 Constitutional recent illness 08/13/2012 Constitutional anorexia 08/13/2012 Constitutional chills 08/13/2012 Constitutional diaphoresis 08/13/2012 Constitutional fatigue 08/13/2012 Constitutional No night sweats 2012 Constitutional No fever 08/13/2012 Constitutional No insomnia 08/13/2012 Eyes No eye discharge 08/13/2012 Eyes No eye erythema 08/13/2012 Ears/Nose/Throat/Neck nasal allergies Ears/Nose/Throat/Neck No nasal discharge 08/13/2012 Respiratory No productive sputum 2012 Respiratory No chest congestion 2012 Respiratory No cough 08/13/2012 Respiratory No dyspnea 08/13/2012 Genitourinary/Nephrology No dysuria 08/13 Musculoskeletal No joint complaint 2012 Dermatologic No sores 08/13/2012 Dermatologic No rash 08/13/2012 Constitutional recent illness 08/07/2012 Constitutional No anorexia 08/07/2012 Constitutional No night sweats 2012 Constitutional chills 08/07/2012 Constitutional diaphoresis 08/07/2012 Constitutional fatigue 08/07/2012 Constitutional No insomnia 08/07/2012 Constitutional No malaise 08/07/2012 Constitutional No fever 08/07/2012 Eyes No eye discharge 08/07/2012 Eyes No eye erythema 08/07/2012 Ears/Nose/Throat/Neck No dizziness 2012 Ears/Nose/Throat/Neck No headache 2012 Ears/Nose/Throat/Neck nasal allergies Ears/Nose/Throat/Neck nasal discharge Ears/Nose/Throat/Neck sinus congestion Ears/Nose/Throat/Neck No sore throat Cardiovascular No chest pain/pressure Respiratory No productive sputum 2012 Respiratory No chest congestion 2012 Respiratory No cough 08/07/2012 Respiratory dyspnea on exertion 2012 Genitourinary/Nephrology No dysuria 08/07 Musculoskeletal No joint complaint 2012 Dermatologic No rash 08/07/2012 Dermatologic No sores 08/07/2012 Neurologic No alteration of consciousness 08/07/2012 Constitutional recent illness 07/06/2012 Constitutional No anorexia 07/06/2012 Constitutional No night sweats 2012 Constitutional No chills 07/06/2012 Constitutional No diaphoresis 07/06/2012 Constitutional fatigue 07/06/2012 Constitutional No fever 07/06/2012 Constitutional No insomnia 07/06/2012 Eyes No eye discharge 07/06/2012 Eyes No eye erythema 07/06/2012 Cardiovascular No chest pain/pressure Respiratory No productive sputum 2012 Respiratory No chest congestion 2012 Respiratory No cough 07/06/2012 Gastrointestinal No vomiting 07/06/2012 Gastrointestinal No nausea 07/06/2012 Gastrointestinal No diarrhea 07/06/2012 Gastrointestinal No constipation 2012 Genitourinary/Nephrology No dysuria 07/06 Dermatologic No sores 07/06/2012 Dermatologic No rash 07/06/2012 Constitutional recent illness 06/07/2012 Constitutional No anorexia 06/07/2012 Constitutional No night sweats 2012 Constitutional No insomnia 06/07/2012 Constitutional No malaise 06/07/2012 Eyes No eye discharge 06/07/2012 Eyes No eye erythema 06/07/2012 Ears/Nose/Throat/Neck nasal allergies Ears/Nose/Throat/Neck nasal discharge Ears/Nose/Throat/Neck No sore throat Respiratory No productive sputum 2012 Respiratory No chest congestion 2012 Respiratory No cough 06/07/2012 Gastrointestinal No abdominal pain 2012 Gastrointestinal No constipation 2012 Gastrointestinal No diarrhea 06/07/2012 Gastrointestinal nausea 06/07/2012 Dermatologic sores 06/07/2012 Neurologic No alteration of consciousness 06/07/2012 Constitutional fatigue 06/07/2012 Constitutional recent illness 05/28/2012 Constitutional No anorexia 05/28/2012 Constitutional No night sweats 2012 Constitutional chills 05/28/2012 Constitutional diaphoresis 05/28/2012 Constitutional fatigue 05/28/2012 Constitutional fever 05/28/2012 Constitutional No insomnia 05/28/2012 Constitutional No malaise 05/28/2012 Eyes No eye discharge 05/28/2012 Eyes No eye erythema 05/28/2012 Ears/Nose/Throat/Neck dizziness 2012 Ears/Nose/Throat/Neck headache 2012 Ears/Nose/Throat/Neck nasal allergies 11/2012 Ears/Nose/Throat/Neck nasal discharge 11/2012 Ears/Nose/Throat/Neck No otalgia 2012 Ears/Nose/Throat/Neck sinus congestion Ears/Nose/Throat/Neck No sore throat 11/2012 Respiratory No productive sputum 2012 Respiratory No chest congestion 2012 Respiratory No cough 05/28/2012 Gastrointestinal No abdominal pain 2012 Gastrointestinal No constipation 2012 Gastrointestinal No diarrhea 05/28/2012 Gastrointestinal nausea 05/28/2012 Dermatologic sores 05/28/2012 Neurologic No alteration of consciousness 05/28/2012 Constitutional No recent illness 2011 Constitutional No anorexia 05/17/2012 Constitutional No night sweats 2011 Constitutional No chills 05/17/2012 Constitutional No diaphoresis 05/17/2012 Constitutional No fever 05/17/2012 Constitutional No insomnia 05/17/2012 Constitutional No malaise 05/17/2012 Eyes No eye discharge 05/17/2012 Eyes No eye erythema 05/17/2012 Ears/Nose/Throat/Neck No dizziness 2011 Ears/Nose/Throat/Neck No headache 2011 Cardiovascular No chest pain/pressure Respiratory No productive sputum 2011 Respiratory No cough 05/17/2012 Gastrointestinal No abdominal pain 2011 Gastrointestinal No nausea 05/17/2012 Gastrointestinal No vomiting 05/17/2012 Genitourinary/Nephrology No dysuria 05/17 Neurologic No alteration of consciousness 05/17/2012 Constitutional No recent illness 2011 Constitutional No anorexia 05/02/2012 Constitutional No night sweats 2011 Constitutional No chills 05/02/2012 Constitutional No diaphoresis 05/02/2012 Constitutional No fatigue 05/02/2012 Constitutional No fever 05/02/2012 Constitutional No insomnia 05/02/2012 Constitutional No malaise 05/02/2012 Constitutional weight gain 05/02/2012 Eyes No eye discharge 05/02/2012 Eyes No eye erythema 05/02/2012 Ears/Nose/Throat/Neck No dizziness 2011 Ears/Nose/Throat/Neck No headache 2011 Ears/Nose/Throat/Neck nasal allergies 04/2012 Ears/Nose/Throat/Neck nasal discharge 04/2012 Ears/Nose/Throat/Neck No sore throat 04/2012 Ears/Nose/Throat/Neck sinus congestion Respiratory No productive sputum 2011 Respiratory No chest congestion 2011 Respiratory No cough 05/02/2012 Gastrointestinal No vomiting 05/02/2012 Gastrointestinal No nausea 05/02/2012 Gastrointestinal No constipation 2011 Gastrointestinal No dyspepsia 05/02/2012 Genitourinary/Nephrology No dysuria 05/02 Dermatologic No sores 05/02/2012 Dermatologic No rash 05/02/2012 Gastrointestinal diarrhea 05/02/2012 Constitutional recent illness 04/10/2012 Constitutional No anorexia 04/10/2012 Constitutional No chills 04/10/2012 Constitutional No night sweats 2011 Constitutional No diaphoresis 04/10/2012 Constitutional No fatigue 04/10/2012 Constitutional No fever 04/10/2012 Constitutional No insomnia 04/10/2012 Constitutional No malaise 04/10/2012 Eyes No eye discharge 04/10/2012 Eyes No eye erythema 04/10/2012 Respiratory No productive sputum 2011 Respiratory No chest congestion 2011 Respiratory No cough 04/10/2012 Ears/Nose/Throat/Neck No dizziness 2011 Ears/Nose/Throat/Neck headache 2011 Ears/Nose/Throat/Neck nasal allergies Ears/Nose/Throat/Neck nasal discharge Ears/Nose/Throat/Neck No otalgia 2011 Ears/Nose/Throat/Neck sinus congestion Ears/Nose/Throat/Neck No sore throat Gastrointestinal No abdominal pain 2011 Gastrointestinal No constipation 2011 Gastrointestinal No diarrhea 04/10/2012 Gastrointestinal No nausea 04/10/2012 Gastrointestinal No vomiting 04/10/2012 Genitourinary/Nephrology No dysuria 04/10 Dermatologic No rash 04/10/2012 Dermatologic No sores 04/10/2012 Constitutional No recent illness 2011 Constitutional No anorexia 02/27/2012 Constitutional No night sweats 2011 Constitutional No chills 02/27/2012 Constitutional No diaphoresis 02/27/2012 Constitutional fatigue 02/27/2012 Constitutional No fever 02/27/2012 Constitutional No insomnia 02/27/2012 Constitutional No malaise 02/27/2012 Eyes No eye discharge 02/27/2012 Eyes No eye erythema 02/27/2012 Cardiovascular No chest pain/pressure 12/2011 Ears/Nose/Throat/Neck No dizziness 2011 Ears/Nose/Throat/Neck No headache 2011 Respiratory No productive sputum 2011 Respiratory No cough 02/27/2012 Gastrointestinal No abdominal pain 2011 Gastrointestinal No nausea 02/27/2012 Gastrointestinal No vomiting 02/27/2012 Genitourinary/Nephrology No dysuria 02/26 Neurologic No alteration of consciousness 02/27/2012 Constitutional No recent illness 2011 Constitutional No anorexia 02/15/2012 Constitutional No night sweats 2011 Constitutional No chills 02/15/2012 Constitutional No diaphoresis 02/15/2012 Constitutional No fatigue 02/15/2012 Constitutional No fever 02/15/2012 Constitutional No insomnia 02/15/2012 Constitutional No malaise 02/15/2012 Eyes No eye discharge 02/15/2012 Eyes No eye erythema 02/15/2012 Ears/Nose/Throat/Neck No dizziness 2011 Ears/Nose/Throat/Neck No headache 2011 Ears/Nose/Throat/Neck No nasal discharge 02/15/2012 Ears/Nose/Throat/Neck No nasal allergies 02/15/2012 Respiratory No productive sputum 2011 Respiratory No chest congestion 2011 Respiratory No cough 02/15/2012 Gastrointestinal No abdominal pain 2011 Gastrointestinal No constipation 2011 Gastrointestinal No diarrhea 02/15/2012 Gastrointestinal No nausea 02/15/2012 Gastrointestinal No vomiting 02/15/2012 Genitourinary/Nephrology No dysuria 02/14 Neurologic No alteration of consciousness 02/15/2012 Constitutional No recent illness 2011 Constitutional No anorexia 02/01/2012 Constitutional No night sweats 2011 Constitutional No chills 02/01/2012 Constitutional diaphoresis 02/01/2012 Constitutional fatigue 02/01/2012 Constitutional No fever 02/01/2012 Constitutional No insomnia 02/01/2012 Constitutional No malaise 02/01/2012 Eyes No eye discharge 02/01/2012 Eyes No eye erythema 02/01/2012 Eyes No vision change 02/01/2012 Respiratory No productive sputum 2011 Respiratory No chest congestion 2011 Respiratory No cough 02/01/2012 Respiratory dyspnea on exertion 2011 Gastrointestinal No abdominal pain 2011 Gastrointestinal No constipation 2011 Gastrointestinal No diarrhea 02/01/2012 Gastrointestinal No nausea 02/01/2012 Gastrointestinal No vomiting 02/01/2012 Genitourinary/Nephrology No dysuria 01/31 Dermatologic No rash 02/01/2012 Dermatologic No sores 02/01/2012 Neurologic No alteration of consciousness 02/01/2012 Constitutional No fatigue 12/14/2011 Eyes No vision change 12/14/2011 Ears/Nose/Throat/Neck No sinusitis 2011 Ears/Nose/Throat/Neck No sore throat Ears/Nose/Throat/Neck headache 2011 Respiratory No chest tightness 2011 Respiratory No cigarette smoking 2011 Respiratory No cough 12/14/2011 Respiratory No dyspnea 12/14/2011 Musculoskeletal stiffness 12/14/2011 Dermatologic No rash 12/14/2011 Dermatologic No sores 12/14/2011 Neurologic No ataxia 12/14/2011 Neurologic No dizziness 12/14/2011 Neurologic No pain, facial 12/14/2011 Psychiatric No anxiety 12/14/2011 Psychiatric No depression 12/14/2011 Gastrointestinal abdominal pain 2011 Gastrointestinal No constipation 2011 Gastrointestinal diarrhea 12/14/2011 Gastrointestinal No hematochezia 2011 Gastrointestinal gastroesophageal reflux 12/14/2011 Gastrointestinal gas and bloating 2011 Constitutional recent illness 11/30/2011 Constitutional No anorexia 11/30/2011 Constitutional No night sweats 2011 Constitutional chills 11/30/2011 Constitutional diaphoresis 11/30/2011 Constitutional No fever 11/30/2011 Constitutional No fatigue 11/30/2011 Constitutional No insomnia 11/30/2011 Constitutional No malaise 11/30/2011 Eyes No eye discharge 11/30/2011 Eyes No eye erythema 11/30/2011 Ears/Nose/Throat/Neck No dizziness 2011 Ears/Nose/Throat/Neck nasal allergies 03/2012 Ears/Nose/Throat/Neck No sore throat 03/2012 Ears/Nose/Throat/Neck No otalgia 2011 Cardiovascular No chest pain/pressure 03/2012 Respiratory No productive sputum 2011 Respiratory No chest congestion 2011 Respiratory No cough 11/30/2011 Genitourinary/Nephrology No dysuria 11/29 Dermatologic No rash 11/30/2011 Dermatologic No sores 11/30/2011 Neurologic No alteration of consciousness 11/30/2011 Psychiatric anxiety 11/30/2011 Psychiatric depression 11/30/2011 Constitutional recent illness 11/17/2011 Constitutional chills 11/17/2011 Constitutional No fatigue 11/17/2011 Constitutional fever 11/17/2011 Ears/Nose/Throat/Neck No facial pain Ears/Nose/Throat/Neck headache 2011 Ears/Nose/Throat/Neck nasal discharge Ears/Nose/Throat/Neck No sinusitis 2011 Ears/Nose/Throat/Neck No sore throat Gastrointestinal No dyspepsia 11/17/2011 Gastrointestinal No nausea 11/17/2011 Musculoskeletal No muscle weakness 2011 Musculoskeletal No myalgias 11/17/2011 Neurologic No ataxia 11/17/2011 Neurologic No pain, facial 11/17/2011 Respiratory No cigarette smoking 2011 Respiratory No dyspnea 11/17/2011 Respiratory No wheezing 11/17/2011 Eyes No vision change 11/17/2011 Respiratory chest congestion 11/17/2011 Respiratory No chest tightness 2011 Respiratory No cough 11/17/2011 Gastrointestinal No abdominal pain 2011 Gastrointestinal No constipation 2011 Gastrointestinal No diarrhea 11/17/2011 Musculoskeletal stiffness 11/17/2011 Musculoskeletal arthralgia(s) 11/17/2011 Dermatologic No rash 11/17/2011 Dermatologic No sores 11/17/2011 Neurologic No dizziness 11/17/2011 Psychiatric No anxiety 11/17/2011 Psychiatric No depression 11/17/2011 Constitutional chills 11/03/2011 Musculoskeletal back pain 11/03/2011 Dermatologic No rash 11/03/2011 Dermatologic sores 11/03/2011 Psychiatric anxiety 11/03/2011 Psychiatric depression 11/03/2011 Constitutional No diaphoresis 11/03/2011 Constitutional fatigue 11/03/2011 Constitutional No fever 11/03/2011 Constitutional No insomnia 11/03/2011 Constitutional No weight loss 11/03/2011 Constitutional No weight gain 11/03/2011 Eyes No eye discharge 11/03/2011 Eyes No eye erythema 11/03/2011 Eyes No vision change 11/03/2011 Ears/Nose/Throat/Neck dizziness 2011 Ears/Nose/Throat/Neck No headache 2011 Ears/Nose/Throat/Neck nasal allergies Ears/Nose/Throat/Neck No otorrhea 2011 Ears/Nose/Throat/Neck sinus congestion Ears/Nose/Throat/Neck No sore throat Respiratory No productive sputum 2011 Respiratory No chest congestion 2011 Respiratory No cough 11/03/2011 Constitutional No anorexia 11/03/2011 Constitutional No night sweats 2011 Gastrointestinal No abdominal pain 2011 Gastrointestinal No constipation 2011 Gastrointestinal diarrhea 11/03/2011 Gastrointestinal nausea 11/03/2011 Gastrointestinal No vomiting 11/03/2011 Genitourinary/Nephrology No dysuria 11/02 Constitutional No recent illness 2011 Constitutional fatigue 10/24/2011 Constitutional No fever 10/24/2011 Constitutional chills 10/24/2011 Constitutional No diaphoresis 10/24/2011 Constitutional No insomnia 10/24/2011 Constitutional No weight gain 10/24/2011 Constitutional No weight loss 10/24/2011 Eyes No eye discharge 10/24/2011 Eyes No eye erythema 10/24/2011 Ears/Nose/Throat/Neck dizziness 2011 Ears/Nose/Throat/Neck nasal allergies 08/2011 Ears/Nose/Throat/Neck No headache 2011 Ears/Nose/Throat/Neck No sore throat 08/2011 Ears/Nose/Throat/Neck No otorrhea 2011 Ears/Nose/Throat/Neck sinus congestion Cardiovascular No chest pain/pressure 08/2011 Cardiovascular No dyspnea 10/24/2011 Cardiovascular No hypertension 2011 Respiratory No productive sputum 2011 Respiratory No chest congestion 2011 Respiratory No cough 10/24/2011 Gastrointestinal No vomiting 10/24/2011 Gastrointestinal nausea 10/24/2011 Gastrointestinal No constipation 2011 Gastrointestinal No abdominal pain 2011 Gastrointestinal diarrhea 10/24/2011 Genitourinary/Nephrology No dysuria 10/23 Dermatologic No rash 10/24/2011 Dermatologic sores 10/24/2011 Neurologic No alteration of consciousness 10/24/2011 Psychiatric anxiety 10/24/2011 Psychiatric depression 10/24/2011 Musculoskeletal back pain 10/24/2011 Constitutional No anorexia 10/24/2011 Constitutional No night sweats 2011 Eyes No vision change 10/24/2011 Cardiovascular No near-syncope/dizziness 10/24/2011 Constitutional No recent illness 2011 Constitutional No anorexia 09/26/2011 Constitutional No night sweats 2011 Eyes No vision change 09/26/2011 Cardiovascular No chest pain/pressure 11/2011 Cardiovascular edema 09/26/2011 Cardiovascular fatigue 09/26/2011 Cardiovascular No hypertension 2011 Cardiovascular No near-syncope/dizziness 09/26/2011 Respiratory No productive sputum 2011 Respiratory No chest congestion 2011 Respiratory No cough 09/26/2011 Gastrointestinal No abdominal pain 2011 Gastrointestinal No vomiting 09/26/2011 Dermatologic No rash 09/26/2011 Constitutional No recent illness 2011 Constitutional No anorexia 09/20/2011 Constitutional No night sweats 2011 Cardiovascular No chest pain/pressure 05/2011 Cardiovascular edema 09/20/2011 Cardiovascular fatigue 09/20/2011 Cardiovascular No hypertension 2011 Cardiovascular No near-syncope/dizziness 09/20/2011 Respiratory No productive sputum 2011 Respiratory No chest congestion 2011 Respiratory No cough 09/20/2011 Dermatologic No rash 09/20/2011 Eyes No vision change 09/20/2011 Gastrointestinal No vomiting 09/20/2011 Gastrointestinal No abdominal pain 2011 Constitutional recent illness 09/01/2011 Constitutional fatigue 09/01/2011 Constitutional No fever 09/01/2011 Cardiovascular No edema 09/01/2011 Cardiovascular exercise intolerance 08/31 Cardiovascular fatigue 09/01/2011 Cardiovascular hypertension 09/01/2011 Cardiovascular No palpitations 2011 Respiratory cough 09/01/2011 Respiratory No dyspnea 09/01/2011 Dermatologic No rash 09/01/2011 Dermatologic No sores 09/01/2011 Neurologic headache 09/01/2011 Endocrine diabetes mellitus type 2 2011 Gastrointestinal No abdominal pain 2011 Gastrointestinal No constipation 2011 Gastrointestinal No diarrhea 09/01/2011 Constitutional recent illness 08/15/2011 Constitutional No fever 08/15/2011 Constitutional fatigue 08/15/2011 Constitutional insomnia 08/15/2011 Eyes vision change 08/15/2011 Ears/Nose/Throat/Neck postnasal drip Ears/Nose/Throat/Neck sinus congestion Ears/Nose/Throat/Neck sore throat 2011 Cardiovascular No edema 08/15/2011 Cardiovascular No palpitations 2011 Respiratory cough 08/15/2011 Respiratory No dyspnea 08/15/2011 Cardiovascular exercise intolerance 08/14 Cardiovascular fatigue 08/15/2011 Cardiovascular hypertension 08/15/2011 Gastrointestinal nausea 08/15/2011 Gastrointestinal vomiting 08/15/2011 Musculoskeletal joint complaint 2011 Dermatologic No rash 08/15/2011 Dermatologic No sores 08/15/2011 Neurologic headache 08/15/2011 Endocrine diabetes mellitus type 2 2011 Constitutional recent illness 08/09/2011 Constitutional chills 08/09/2011 Constitutional diaphoresis 08/09/2011 Constitutional fatigue 08/09/2011 Constitutional fever 08/09/2011 Eyes No eye discharge 08/09/2011 Eyes No eye erythema 08/09/2011 Ears/Nose/Throat/Neck No dizziness 2011 Ears/Nose/Throat/Neck headache 2011 Ears/Nose/Throat/Neck nasal allergies Ears/Nose/Throat/Neck nasal discharge Ears/Nose/Throat/Neck No otorrhea 2011 Ears/Nose/Throat/Neck No otitis media Ears/Nose/Throat/Neck sinus congestion Ears/Nose/Throat/Neck No sore throat Cardiovascular chest pain/pressure 2011 Cardiovascular No dyspnea 08/09/2011 Respiratory No productive sputum 2011 Respiratory No chest congestion 2011 Respiratory No chest tightness 2011 Respiratory No cough 08/09/2011 Respiratory No wheezing 08/09/2011 Gastrointestinal No vomiting 08/09/2011 Gastrointestinal nausea 08/09/2011 Gastrointestinal No constipation 2011 Gastrointestinal No diarrhea 08/09/2011 Musculoskeletal sciatica 08/09/2011 Musculoskeletal back pain 08/09/2011 Psychiatric anxiety 08/09/2011 Psychiatric depression 08/09/2011 Neurologic No alteration of consciousness 08/09/2011 Constitutional No chills 08/01/2011 Constitutional No night sweats 2011 Constitutional No malaise 08/01/2011 Constitutional No fever 08/01/2011 Constitutional No fatigue 08/01/2011 Eyes No vision change 08/01/2011 Ears/Nose/Throat/Neck No dizziness 2011 Ears/Nose/Throat/Neck No headache 2011 Cardiovascular No chest pain/pressure 04/2012 Respiratory No dyspnea 08/01/2011 Gastrointestinal No diarrhea 08/01/2011 Gastrointestinal No constipation 2011 Gastrointestinal No vomiting 08/01/2011 Gastrointestinal No nausea 08/01/2011 Constitutional No recent illness 2011 Ears/Nose/Throat/Neck No otitis media 04/2012 Eyes No eye discharge 08/01/2011 Eyes No eye erythema 08/01/2011 Respiratory No productive sputum 2011 Musculoskeletal back pain 08/01/2011 Neurologic No dizziness 08/01/2011 Psychiatric anxiety 08/01/2011 Psychiatric depression 08/01/2011 Cardiovascular No fatigue 06/20/2011 Cardiovascular No syncope 06/20/2011 Constitutional recent illness 06/20/2011 Constitutional chills 06/20/2011 Constitutional No fatigue 06/20/2011 Constitutional fever 06/20/2011 Ears/Nose/Throat/Neck No facial pain Ears/Nose/Throat/Neck headache 2011 Ears/Nose/Throat/Neck nasal discharge Ears/Nose/Throat/Neck No sinusitis 2011 Ears/Nose/Throat/Neck No sore throat Gastrointestinal No dyspepsia 06/20/2011 Gastrointestinal No nausea 06/20/2011 Musculoskeletal No muscle weakness 2011 Musculoskeletal No myalgias 06/20/2011 Neurologic No ataxia 06/20/2011 Neurologic No pain, facial 06/20/2011 Respiratory No cigarette smoking 2011 Respiratory No dyspnea 06/20/2011 Respiratory No wheezing 06/20/2011 Eyes No vision change 06/20/2011 Cardiovascular No chest pain/pressure Cardiovascular No dyspnea 06/20/2011 Cardiovascular No edema 06/20/2011 Respiratory chest congestion 06/20/2011 Respiratory No chest tightness 2011 Respiratory No cough 06/20/2011 Gastrointestinal No abdominal pain 2011 Gastrointestinal No constipation 2011 Gastrointestinal No diarrhea 06/20/2011 Musculoskeletal stiffness 06/20/2011 Musculoskeletal arthralgia(s) 06/20/2011 Dermatologic No rash 06/20/2011 Dermatologic No sores 06/20/2011 Neurologic No dizziness 06/20/2011 Psychiatric No anxiety 06/20/2011 Psychiatric No depression 06/20/2011 Cardiovascular No fatigue 04/18/2011 Respiratory No cigarette smoking 2010 Respiratory No dyspnea 04/18/2011 Respiratory No wheezing 04/18/2011 Ears/Nose/Throat/Neck No facial pain Cardiovascular No syncope 04/18/2011 Ears/Nose/Throat/Neck No sinusitis 2010 Ears/Nose/Throat/Neck headache 2010 Ears/Nose/Throat/Neck nasal discharge Ears/Nose/Throat/Neck No sore throat Gastrointestinal No dyspepsia 04/18/2011 Gastrointestinal No nausea 04/18/2011 Musculoskeletal No muscle weakness 2010 Musculoskeletal No myalgias 04/18/2011 Neurologic No ataxia 04/18/2011 Neurologic No pain, facial 04/18/2011 Constitutional chills 04/18/2011 Constitutional fever 04/18/2011 Constitutional No fatigue 04/18/2011 Constitutional recent illness 04/18/2011 Eyes No vision change 04/18/2011 Cardiovascular No chest pain/pressure Cardiovascular No dyspnea 04/18/2011 Cardiovascular No edema 04/18/2011 Respiratory No cough 04/18/2011 Respiratory chest congestion 04/18/2011 Respiratory No chest tightness 2010 Gastrointestinal No abdominal pain 2010 Gastrointestinal No constipation 2010 Gastrointestinal No diarrhea 04/18/2011 Musculoskeletal stiffness 04/18/2011 Musculoskeletal arthralgia(s) 04/18/2011 Dermatologic No rash 04/18/2011 Dermatologic No sores 04/18/2011 Neurologic No dizziness 04/18/2011 Psychiatric No anxiety 04/18/2011 Psychiatric No depression 04/18/2011 Physical Exam Exam Name System Name Item Name Status Result Effective Dates Notes Full Exam - General 1994 Constitutional general appearance Overall: well developed 05/21/2018 None Full Exam - General 1994 Constitutional general appearance Overall: in no acute distress 05/21/2018 patient with unsteady gait, lethargic and slurring speech Full Exam - General 1994 Psychiatric orientation/consciousness Level of consciousness: lethargic 05/21/2018 None Full Exam - General 1994 Neurologic mental status Level of alertness: lethargic 05/21/2018 None Full Exam - General 1994 Integument inspection of skin Overall: few scattered moles, no gross abnormalities 05/21/2018 None Full Exam - General 1994 Musculoskeletal gait and station Gait: asymmetric 05/21/2018 None Full Exam - General 1994 Abdomen abdominal exam Overall: no tenderness 05/21/2018 None Full Exam - General 1994 Abdomen abdominal exam Overall: normal bowel sounds 05/21/2018 None Full Exam - General 1994 Cardiovascular auscultation of heart Overall: regular rate 05/21/2018 None Full Exam - General 1994 Cardiovascular auscultation of heart Overall: normal heart sounds 05/21/2018 None Full Exam - General 1994 Respiratory auscultation Overall: breath sounds clear bilaterally 05/21/2018 None Full Exam - General 1994 Respiratory respiratory effort/rhythm Overall: no retractions 05/21/2018 None Full Exam - General 1994 Respiratory respiratory effort/rhythm Overall: normal rate 05/21/2018 None Full Exam - General 1994 Constitutional general appearance Assistive Device: walker 05/21/2018 None Full Exam - General 1994 Eyes conjunctiva /eyelids Overall: conjunctiva clear 05/21/2018 None Full Exam - General 1994 Eyes conjunctiva /eyelids Overall: cornea clear 05/21/2018 None Full Exam - General 1994 Eyes conjunctiva /eyelids Overall: eyelids normal 05/21/2018 None Full Exam - General 1994 Eyes pupils and irises Overall: pupils equal, round, reactive to light and accomodation 05/21/2018 None Full Exam - General 1994 Ears/Nose/Throat lips/teeth/gingiva Overall: benign lips 05/21/2018 None Full Exam - General 1994 Ears/Nose/Throat oral cavity/pharynx/larynx Oral mucosa: dry 05/21/2018 None Full Exam - General 1994 Constitutional general appearance Overall: well developed 05/16/2018 None Full Exam - General 1994 Constitutional general appearance Overall: in no acute distress 05/16/2018 None Full Exam - General 1994 Constitutional general appearance Overall: well nourished 05/16/2018 None Full Exam - General 1994 Constitutional general appearance Assistive Device: walker 05/16/2018 None Full Exam - General 1994 Eyes conjunctiva /eyelids Overall: conjunctiva clear 05/16/2018 None Full Exam - General 1994 Eyes conjunctiva /eyelids Overall: cornea clear 05/16/2018 None Full Exam - General 1994 Eyes conjunctiva /eyelids Overall: eyelids normal 05/16/2018 None Full Exam - General 1994 Eyes pupils and irises Overall: pupils equal, round, reactive to light and accomodation 05/16/2018 None Full Exam - General 1994 Ears/Nose/Throat lips/teeth/gingiva Overall: benign lips 05/16/2018 None Full Exam - General 1994 Ears/Nose/Throat lips/teeth/gingiva Teeth: partially edentulous 05/16/2018 None Full Exam - General 1994 Respiratory respiratory effort/rhythm Overall: no retractions 05/16/2018 None Full Exam - General 1994 Respiratory respiratory effort/rhythm Overall: normal rate 05/16/2018 None Full Exam - General 1994 Cardiovascular auscultation of heart Overall: regular rate 05/16/2018 None Full Exam - General 1994 Cardiovascular auscultation of heart Overall: normal heart sounds 05/16/2018 None Full Exam - General 1994 Abdomen abdominal exam Overall: normal bowel sounds 05/16/2018 None Full Exam - General 1994 Abdomen abdominal exam Contour: rounded 05/16/2018 None Full Exam - General 1994 Abdomen abdominal exam Upper quadrant: tender to palpation 05/16/2018 mildly Full Exam - General 1994 Abdomen abdominal exam Lower quadrant: tender to palpation 05/16/2018 None Full Exam - General 1994 Musculoskeletal head and neck Overall: head atraumatic 05/16/2018 None Full Exam - General 1994 Integument inspection of skin Overall: few scattered moles, no gross abnormalities 05/16/2018 None Full Exam - General 1994 Neurologic coordination Overall: no dysdiadochokinesis, no dysmetria 05/16/2018 None Full Exam - General 1994 Neurologic coordination Overall: no tremors 05/16/2018 None Full Exam - General 1994 Neurologic cranial nerves Overall: crainial nerves 2 - 12 grossly intact 05/16/2018 None Full Exam - General 1994 Psychiatric orientation/consciousness Overall: oriented to person, place and time 05/16/2018 None Full Exam - General 1994 Psychiatric mood and affect Overall: normal mood and affect 05/16/2018 None Full Exam - General 1994 Psychiatric appearance Overall: well-groomed, good eye contact 05/16/2018 None Full Exam - General 1994 Ears/Nose/Throat oral cavity/pharynx/larynx Overall: oropharyngeal mucosa clear 05/16/2018 None Full Exam - General 1994 Ears/Nose/Throat oral cavity/pharynx/larynx Overall: no masses 05/16/2018 None Full Exam - General 1994 Ears/Nose/Throat oral cavity/pharynx/larynx Overall: oral mucosa clear 05/16/2018 None Full Exam - General 1994 Constitutional general appearance Overall: well developed 04/27/2018 None Full Exam - General 1994 Constitutional general appearance Overall: in no acute distress 04/27/2018 None Full Exam - General 1994 Constitutional general appearance Overall: well nourished 04/27/2018 None Full Exam - General 1994 Constitutional general appearance Assistive Device: walker 04/27/2018 None Full Exam - General 1994 Eyes conjunctiva /eyelids Overall: conjunctiva clear 04/27/2018 None Full Exam - General 1994 Eyes conjunctiva /eyelids Overall: cornea clear 04/27/2018 None Full Exam - General 1994 Eyes conjunctiva /eyelids Overall: eyelids normal 04/27/2018 None Full Exam - General 1994 Eyes pupils and irises Overall: pupils equal, round, reactive to light and accomodation 04/27/2018 None Full Exam - General 1994 Ears/Nose/Throat lips/teeth/gingiva Overall: benign lips 04/27/2018 None Full Exam - General 1994 Ears/Nose/Throat lips/teeth/gingiva Teeth: partially edentulous 04/27/2018 None Full Exam - General 1994 Respiratory respiratory effort/rhythm Overall: no retractions 04/27/2018 None Full Exam - General 1994 Respiratory respiratory effort/rhythm Overall: normal rate 04/27/2018 None Full Exam - General 1994 Cardiovascular auscultation of heart Overall: regular rate 04/27/2018 None Full Exam - General 1994 Cardiovascular auscultation of heart Overall: normal heart sounds 04/27/2018 None Full Exam - General 1994 Abdomen abdominal exam Overall: normal bowel sounds 04/27/2018 None Full Exam - General 1994 Abdomen abdominal exam Contour: rounded 04/27/2018 None Full Exam - General 1994 Abdomen abdominal exam Upper quadrant: tender to palpation 04/27/2018 mildly Full Exam - General 1994 Abdomen abdominal exam Lower quadrant: tender to palpation 04/27/2018 None Full Exam - General 1994 Musculoskeletal head and neck Overall: head atraumatic 04/27/2018 None Full Exam - General 1994 Integument inspection of skin Overall: few scattered moles, no gross abnormalities 04/27/2018 None Full Exam - General 1994 Neurologic coordination Overall: no dysdiadochokinesis, no dysmetria 04/27/2018 None Full Exam - General 1994 Neurologic coordination Overall: no tremors 04/27/2018 None Full Exam - General 1994 Neurologic cranial nerves Overall: crainial nerves 2 - 12 grossly intact 04/27/2018 None Full Exam - General 1994 Psychiatric orientation/consciousness Overall: oriented to person, place and time 04/27/2018 None Full Exam - General 1994 Psychiatric mood and affect Overall: normal mood and affect 04/27/2018 None Full Exam - General 1994 Psychiatric appearance Overall: well-groomed, good eye contact 04/27/2018 None Full Exam - General 1994 Constitutional general appearance Overall: well developed 04/10/2018 None Full Exam - General 1994 Constitutional general appearance Overall: in no acute distress 04/10/2018 None Full Exam - General 1994 Constitutional general appearance Overall: well nourished 04/10/2018 None Full Exam - General 1994 Constitutional general appearance Assistive Device: walker 04/10/2018 None Full Exam - General 1994 Eyes conjunctiva /eyelids Overall: conjunctiva clear 04/10/2018 None Full Exam - General 1994 Eyes conjunctiva /eyelids Overall: cornea clear 04/10/2018 None Full Exam - General 1994 Eyes conjunctiva /eyelids Overall: eyelids normal 04/10/2018 None Full Exam - General 1994 Eyes pupils and irises Overall: pupils equal, round, reactive to light and accomodation 04/10/2018 None Full Exam - General 1994 Ears/Nose/Throat lips/teeth/gingiva Overall: benign lips 04/10/2018 None Full Exam - General 1994 Ears/Nose/Throat lips/teeth/gingiva Teeth: partially edentulous 04/10/2018 None Full Exam - General 1994 Respiratory respiratory effort/rhythm Overall: no retractions 04/10/2018 None Full Exam - General 1994 Respiratory respiratory effort/rhythm Overall: normal rate 04/10/2018 None Full Exam - General 1994 Cardiovascular auscultation of heart Overall: regular rate 04/10/2018 None Full Exam - General 1994 Cardiovascular auscultation of heart Overall: normal heart sounds 04/10/2018 None Full Exam - General 1994 Abdomen abdominal exam Overall: normal bowel sounds 04/10/2018 None Full Exam - General 1994 Abdomen abdominal exam Contour: rounded 04/10/2018 None Full Exam - General 1994 Abdomen abdominal exam Upper quadrant: tender to palpation 04/10/2018 mildly Full Exam - General 1994 Abdomen abdominal exam Lower quadrant: tender to palpation 04/10/2018 None Full Exam - General 1994 Musculoskeletal head and neck Overall: head atraumatic 04/10/2018 None Full Exam - General 1994 Integument inspection of skin Overall: few scattered moles, no gross abnormalities 04/10/2018 None Full Exam - General 1994 Neurologic coordination Overall: no dysdiadochokinesis, no dysmetria 04/10/2018 None Full Exam - General 1994 Neurologic coordination Overall: no tremors 04/10/2018 None Full Exam - General 1994 Neurologic cranial nerves Overall: crainial nerves 2 - 12 grossly intact 04/10/2018 None Full Exam - General 1994 Psychiatric orientation/consciousness Overall: oriented to person, place and time 04/10/2018 None Full Exam - General 1994 Psychiatric mood and affect Overall: normal mood and affect 04/10/2018 None Full Exam - General 1994 Psychiatric appearance Overall: well-groomed, good eye contact 04/10/2018 None Full Exam - General 1994 Constitutional general appearance Overall: well developed 03/12/2018 None Full Exam - General 1994 Constitutional general appearance Overall: in no acute distress 03/12/2018 None Full Exam - General 1994 Constitutional general appearance Overall: well nourished 03/12/2018 None Full Exam - General 1994 Eyes conjunctiva /eyelids Overall: conjunctiva clear 03/12/2018 None Full Exam - General 1994 Eyes conjunctiva /eyelids Overall: cornea clear 03/12/2018 None Full Exam - General 1994 Eyes conjunctiva /eyelids Overall: eyelids normal 03/12/2018 None Full Exam - General 1994 Eyes pupils and irises Overall: pupils equal, round, reactive to light and accomodation 03/12/2018 None Full Exam - General 1994 Ears/Nose/Throat lips/teeth/gingiva Overall: benign lips 03/12/2018 None Full Exam - General 1994 Ears/Nose/Throat lips/teeth/gingiva Teeth: partially edentulous 03/12/2018 None Full Exam - General 1994 Respiratory respiratory effort/rhythm Overall: no retractions 03/12/2018 None Full Exam - General 1994 Respiratory respiratory effort/rhythm Overall: normal rate 03/12/2018 None Full Exam - General 1994 Abdomen abdominal exam Overall: normal bowel sounds 03/12/2018 None Full Exam - General 1994 Abdomen abdominal exam Lower quadrant: tender to palpation 03/12/2018 None Full Exam - General 1994 Musculoskeletal head and neck Overall: head atraumatic 03/12/2018 None Full Exam - General 1994 Integument inspection of skin Overall: few scattered moles, no gross abnormalities 03/12/2018 None Full Exam - General 1994 Neurologic coordination Overall: no dysdiadochokinesis, no dysmetria 03/12/2018 None Full Exam - General 1994 Neurologic coordination Overall: no tremors 03/12/2018 None Full Exam - General 1994 Neurologic cranial nerves Overall: crainial nerves 2 - 12 grossly intact 03/12/2018 None Full Exam - General 1994 Psychiatric orientation/consciousness Overall: oriented to person, place and time 03/12/2018 None Full Exam - General 1994 Psychiatric mood and affect Overall: normal mood and affect 03/12/2018 None Full Exam - General 1994 Psychiatric appearance Overall: well-groomed, good eye contact 03/12/2018 None Full Exam - General 1994 Constitutional general appearance Assistive Device: walker 03/12/2018 None Full Exam - General 1994 Cardiovascular auscultation of heart Overall: regular rate 03/12/2018 None Full Exam - General 1994 Cardiovascular auscultation of heart Overall: normal heart sounds 03/12/2018 None Full Exam - General 1994 Abdomen abdominal exam Upper quadrant: tender to palpation 03/12/2018 mildly Full Exam - General 1994 Abdomen abdominal exam Contour: rounded 03/12/2018 None Full Exam - General 1994 Constitutional general appearance Overall: well developed 02/20/2018 None Full Exam - General 1994 Constitutional general appearance Overall: in no acute distress 02/20/2018 None Full Exam - General 1994 Constitutional general appearance Overall: well nourished 02/20/2018 None Full Exam - General 1994 Eyes conjunctiva /eyelids Overall: conjunctiva clear 02/20/2018 None Full Exam - General 1994 Eyes conjunctiva /eyelids Overall: cornea clear 02/20/2018 None Full Exam - General 1994 Eyes conjunctiva /eyelids Overall: eyelids normal 02/20/2018 None Full Exam - General 1994 Eyes pupils and irises Overall: pupils equal, round, reactive to light and accomodation 02/20/2018 None Full Exam - General 1994 Ears/Nose/Throat lips/teeth/gingiva Overall: benign lips 02/20/2018 None Full Exam - General 1994 Respiratory respiratory effort/rhythm Overall: no retractions 02/20/2018 None Full Exam - General 1994 Respiratory respiratory effort/rhythm Overall: normal rate 02/20/2018 None Full Exam - General 1994 Musculoskeletal head and neck Overall: head atraumatic 02/20/2018 None Full Exam - General 1994 Neurologic coordination Overall: no dysdiadochokinesis, no dysmetria 02/20/2018 None Full Exam - General 1994 Neurologic coordination Overall: no tremors 02/20/2018 None Full Exam - General 1994 Neurologic cranial nerves Overall: crainial nerves 2 - 12 grossly intact 02/20/2018 None Full Exam - General 1994 Psychiatric orientation/consciousness Overall: oriented to person, place and time 02/20/2018 None Full Exam - General 1994 Psychiatric mood and affect Overall: normal mood and affect 02/20/2018 None Full Exam - General 1994 Psychiatric appearance Overall: well-groomed, good eye contact 02/20/2018 None Full Exam - General 1994 Abdomen abdominal exam Overall: normal bowel sounds 02/20/2018 None Full Exam - General 1994 Abdomen abdominal exam Lower quadrant: tender to palpation 02/20/2018 None Full Exam - General 1994 Integument inspection of skin Overall: few scattered moles, no gross abnormalities 02/20/2018 None Full Exam - General 1994 Ears/Nose/Throat lips/teeth/gingiva Teeth: partially edentulous 02/20/2018 None Full Exam - General 1994 Constitutional general appearance Overall: well developed 11/27/2017 None Full Exam - General 1994 Constitutional general appearance Overall: in no acute distress 11/27/2017 None Full Exam - General 1994 Constitutional general appearance Overall: well nourished 11/27/2017 None Full Exam - General 1994 Eyes conjunctiva /eyelids Overall: conjunctiva clear 11/27/2017 None Full Exam - General 1994 Eyes conjunctiva /eyelids Overall: cornea clear 11/27/2017 None Full Exam - General 1994 Eyes conjunctiva /eyelids Overall: eyelids normal 11/27/2017 None Full Exam - General 1994 Eyes pupils and irises Overall: pupils equal, round, reactive to light and accomodation 11/27/2017 None Full Exam - General 1994 Ears/Nose/Throat lips/teeth/gingiva Overall: benign lips 11/27/2017 None Full Exam - General 1994 Respiratory respiratory effort/rhythm Overall: no retractions 11/27/2017 None Full Exam - General 1994 Respiratory respiratory effort/rhythm Overall: normal rate 11/27/2017 None Full Exam - General 1994 Musculoskeletal head and neck Overall: head atraumatic 11/27/2017 None Full Exam - General 1994 Neurologic coordination Overall: no dysdiadochokinesis, no dysmetria 11/27/2017 None Full Exam - General 1994 Neurologic coordination Overall: no tremors 11/27/2017 None Full Exam - General 1994 Neurologic cranial nerves Overall: crainial nerves 2 - 12 grossly intact 11/27/2017 None Full Exam - General 1994 Psychiatric orientation/consciousness Overall: oriented to person, place and time 11/27/2017 None Full Exam - General 1994 Psychiatric mood and affect Overall: normal mood and affect 11/27/2017 None Full Exam - General 1994 Psychiatric appearance Overall: well-groomed, good eye contact 11/27/2017 None Full Exam - General 1994 Constitutional general appearance Assistive Device: walker 11/27/2017 None Full Exam - General 1994 Ears/Nose/Throat otoscopic exam Overall: external auditory canals clear 11/27/2017 None Full Exam - General 1994 Ears/Nose/Throat otoscopic exam Overall: tympanic membranes clear 11/27/2017 None Full Exam - General 1994 Ears/Nose/Throat oral cavity/pharynx/larynx Overall: oral mucosa clear 11/27/2017 None Full Exam - General 1994 Ears/Nose/Throat oral cavity/pharynx/larynx Overall: oropharyngeal mucosa clear 11/27/2017 None Full Exam - General 1994 Respiratory auscultation Diffuse: diminished 11/27/2017 None Full Exam - General 1994 Cardiovascular extremities Edema present: pitting 11/27/2017 None Full Exam - General 1994 Cardiovascular extremities Edema present: severity 1+ - 4 +: 1+ 11/27/2017 None Full Exam - General 1994 Cardiovascular auscultation of heart Overall: normal heart sounds 11/27/2017 None Full Exam - General 1994 Cardiovascular auscultation of heart Overall: no murmurs 11/27/2017 None Full Exam - General 1994 Cardiovascular auscultation of heart Rate: regular rate 11/27/2017 None Full Exam - General 1994 Lymphatic neck nodes Overall: anterior cervical chain benign 11/27/2017 None Full Exam - General 1994 Lymphatic neck nodes Overall: posterior cervical chain benign 11/27/2017 None Full Exam - General 1994 Neurologic mental status Overall: alert 11/27/2017 None Full Exam - General 1994 Neurologic mental status Overall: oriented 11/27/2017 None Full Exam - General 1994 Psychiatric orientation/consciousness Oriented to person: yes 11/27/2017 None Full Exam - General 1994 Psychiatric orientation/consciousness Oriented to place: yes 11/27/2017 None Full Exam - General 1994 Psychiatric orientation/consciousness Oriented to time: yes 11/27/2017 None Full Exam - General 1994 Psychiatric orientation/consciousness Level of consciousness: alert 11/27/2017 None Full Exam - General 1994 Constitutional general appearance Overall: well developed 10/27/2017 None Full Exam - General 1994 Constitutional general appearance Overall: in no acute distress 10/27/2017 None Full Exam - General 1994 Constitutional general appearance Overall: well nourished 10/27/2017 None Full Exam - General 1994 Eyes conjunctiva /eyelids Overall: conjunctiva clear 10/27/2017 None Full Exam - General 1994 Eyes conjunctiva /eyelids Overall: cornea clear 10/27/2017 None Full Exam - General 1994 Eyes conjunctiva /eyelids Overall: eyelids normal 10/27/2017 None Full Exam - General 1994 Eyes pupils and irises Overall: pupils equal, round, reactive to light and accomodation 10/27/2017 None Full Exam - General 1994 Ears/Nose/Throat lips/teeth/gingiva Overall: benign lips 10/27/2017 None Full Exam - General 1994 Respiratory respiratory effort/rhythm Overall: no retractions 10/27/2017 None Full Exam - General 1994 Respiratory respiratory effort/rhythm Overall: normal rate 10/27/2017 None Full Exam - General 1994 Musculoskeletal head and neck Overall: head atraumatic 10/27/2017 None Full Exam - General 1994 Neurologic coordination Overall: no dysdiadochokinesis, no dysmetria 10/27/2017 None Full Exam - General 1994 Neurologic coordination Overall: no tremors 10/27/2017 None Full Exam - General 1994 Neurologic cranial nerves Overall: crainial nerves 2 - 12 grossly intact 10/27/2017 None Full Exam - General 1994 Psychiatric orientation/consciousness Overall: oriented to person, place and time 10/27/2017 None Full Exam - General 1994 Psychiatric mood and affect Overall: normal mood and affect 10/27/2017 None Full Exam - General 1994 Psychiatric appearance Overall: well-groomed, good eye contact 10/27/2017 None Full Exam - General 1994 Constitutional general appearance Overall: well developed 09/27/2017 None Full Exam - General 1994 Constitutional general appearance Overall: in no acute distress 09/27/2017 None Full Exam - General 1994 Constitutional general appearance Overall: well nourished 09/27/2017 None Full Exam - General 1994 Eyes conjunctiva /eyelids Overall: conjunctiva clear 09/27/2017 None Full Exam - General 1994 Eyes conjunctiva /eyelids Overall: cornea clear 09/27/2017 None Full Exam - General 1994 Eyes conjunctiva /eyelids Overall: eyelids normal 09/27/2017 None Full Exam - General 1994 Ears/Nose/Throat lips/teeth/gingiva Overall: benign lips 09/27/2017 None Full Exam - General 1994 Respiratory respiratory effort/rhythm Overall: no retractions 09/27/2017 None Full Exam - General 1994 Respiratory respiratory effort/rhythm Overall: normal rate 09/27/2017 None Full Exam - General 1994 Musculoskeletal head and neck Overall: head atraumatic 09/27/2017 None Full Exam - General 1994 Neurologic cranial nerves Overall: crainial nerves 2 - 12 grossly intact 09/27/2017 None Full Exam - General 1994 Psychiatric orientation/consciousness Overall: oriented to person, place and time 09/27/2017 None Full Exam - General 1994 Psychiatric mood and affect Overall: normal mood and affect 09/27/2017 None Full Exam - General 1994 Psychiatric appearance Overall: well-groomed, good eye contact 09/27/2017 None Full Exam - General 1994 Eyes pupils and irises Overall: pupils equal, round, reactive to light and accomodation 09/27/2017 None Full Exam - General 1994 Neurologic coordination Overall: no dysdiadochokinesis, no dysmetria 09/27/2017 None Full Exam - General 1994 Neurologic coordination Overall: no tremors 09/27/2017 None Full Exam - General 1994 Constitutional general appearance Overall: well developed 09/15/2017 None Full Exam - General 1994 Constitutional general appearance Overall: in no acute distress 09/15/2017 None Full Exam - General 1994 Constitutional general appearance Overall: well nourished 09/15/2017 None Full Exam - General 1994 Eyes pupils and irises Overall: pupils equal, round, reactive to light and accomodation 09/15/2017 None Full Exam - General 1994 Ears/Nose/Throat otoscopic exam Overall: external auditory canals clear 09/15/2017 None Full Exam - General 1994 Ears/Nose/Throat otoscopic exam Overall: tympanic membranes clear 09/15/2017 None Full Exam - General 1994 Ears/Nose/Throat lips/teeth/gingiva Overall: benign lips 09/15/2017 None Full Exam - General 1994 Ears/Nose/Throat oral cavity/pharynx/larynx Overall: oral mucosa clear 09/15/2017 None Full Exam - General 1994 Ears/Nose/Throat oral cavity/pharynx/larynx Overall: oropharyngeal mucosa clear 09/15/2017 None Full Exam - General 1994 Respiratory auscultation Diffuse: diminished 09/15/2017 None Full Exam - General 1994 Respiratory respiratory effort/rhythm Overall: no retractions 09/15/2017 None Full Exam - General 1994 Respiratory respiratory effort/rhythm Overall: normal rate 09/15/2017 None Full Exam - General 1994 Cardiovascular extremities Edema present: pitting 09/15/2017 None Full Exam - General 1994 Cardiovascular extremities Edema present: severity 1+ - 4 +: 1+ 09/15/2017 None Full Exam - General 1994 Cardiovascular auscultation of heart Overall: normal heart sounds 09/15/2017 None Full Exam - General 1994 Cardiovascular auscultation of heart Overall: no murmurs 09/15/2017 None Full Exam - General 1994 Cardiovascular auscultation of heart Rate: regular rate 09/15/2017 None Full Exam - General 1994 Lymphatic neck nodes Overall: anterior cervical chain benign 09/15/2017 None Full Exam - General 1994 Lymphatic neck nodes Overall: posterior cervical chain benign 09/15/2017 None Full Exam - General 1994 Neurologic mental status Overall: alert 09/15/2017 None Full Exam - General 1994 Neurologic mental status Overall: oriented 09/15/2017 None Full Exam - General 1994 Neurologic cranial nerves Overall: crainial nerves 2 - 12 grossly intact 09/15/2017 None Full Exam - General 1994 Psychiatric orientation/consciousness Overall: oriented to person, place and time 09/15/2017 None Full Exam - General 1994 Psychiatric orientation/consciousness Oriented to person: yes 09/15/2017 None Full Exam - General 1994 Psychiatric orientation/consciousness Oriented to place: yes 09/15/2017 None Full Exam - General 1994 Psychiatric orientation/consciousness Oriented to time: yes 09/15/2017 None Full Exam - General 1994 Psychiatric orientation/consciousness Level of consciousness: alert 09/15/2017 None Full Exam - General 1994 Psychiatric mood and affect Overall: normal mood and affect 09/15/2017 None Full Exam - General 1994 Psychiatric appearance Overall: well-groomed, good eye contact 09/15/2017 None Full Exam - General 1994 Constitutional general appearance Assistive Device: walker 09/15/2017 None Full Exam - General 1994 Constitutional general appearance Overall: well developed 08/18/2017 None Full Exam - General 1994 Constitutional general appearance Overall: in no acute distress 08/18/2017 None Full Exam - General 1994 Constitutional general appearance Overall: well nourished 08/18/2017 None Full Exam - General 1994 Constitutional general appearance Assistive Device: cane 08/18/2017 None Full Exam - General 1994 Eyes pupils and irises Overall: pupils equal, round, reactive to light and accomodation 08/18/2017 None Full Exam - General 1994 Ears/Nose/Throat otoscopic exam Overall: external auditory canals clear 08/18/2017 None Full Exam - General 1994 Ears/Nose/Throat otoscopic exam Overall: tympanic membranes clear 08/18/2017 None Full Exam - General 1994 Ears/Nose/Throat lips/teeth/gingiva Overall: benign lips 08/18/2017 None Full Exam - General 1994 Ears/Nose/Throat oral cavity/pharynx/larynx Overall: oral mucosa clear 08/18/2017 None Full Exam - General 1994 Ears/Nose/Throat oral cavity/pharynx/larynx Overall: oropharyngeal mucosa clear 08/18/2017 None Full Exam - General 1994 Respiratory auscultation Diffuse: diminished 08/18/2017 None Full Exam - General 1994 Respiratory respiratory effort/rhythm Overall: no retractions 08/18/2017 None Full Exam - General 1994 Respiratory respiratory effort/rhythm Overall: normal rate 08/18/2017 None Full Exam - General 1994 Cardiovascular extremities Edema present: pitting 08/18/2017 None Full Exam - General 1994 Cardiovascular extremities Edema present: severity 1+ - 4 +: 1+ 08/18/2017 None Full Exam - General 1994 Cardiovascular auscultation of heart Overall: normal heart sounds 08/18/2017 None Full Exam - General 1994 Cardiovascular auscultation of heart Overall: no murmurs 08/18/2017 None Full Exam - General 1994 Cardiovascular auscultation of heart Rate: regular rate 08/18/2017 None Full Exam - General 1994 Lymphatic neck nodes Overall: anterior cervical chain benign 08/18/2017 None Full Exam - General 1994 Lymphatic neck nodes Overall: posterior cervical chain benign 08/18/2017 None Full Exam - General 1994 Neurologic mental status Overall: alert 08/18/2017 None Full Exam - General 1994 Neurologic mental status Overall: oriented 08/18/2017 None Full Exam - General 1994 Neurologic cranial nerves Overall: crainial nerves 2 - 12 grossly intact 08/18/2017 None Full Exam - General 1994 Psychiatric orientation/consciousness Overall: oriented to person, place and time 08/18/2017 None Full Exam - General 1994 Psychiatric orientation/consciousness Oriented to person: yes 08/18/2017 None Full Exam - General 1994 Psychiatric orientation/consciousness Oriented to place: yes 08/18/2017 None Full Exam - General 1994 Psychiatric orientation/consciousness Oriented to time: yes 08/18/2017 None Full Exam - General 1994 Psychiatric orientation/consciousness Level of consciousness: alert 08/18/2017 None Full Exam - General 1994 Psychiatric mood and affect Overall: normal mood and affect 08/18/2017 None Full Exam - General 1994 Psychiatric appearance Overall: well-groomed, good eye contact 08/18/2017 None Full Exam - General 1994 Constitutional general appearance Overall: well developed 08/03/2017 None Full Exam - General 1994 Constitutional general appearance Overall: in no acute distress 08/03/2017 None Full Exam - General 1994 Constitutional general appearance Overall: well nourished 08/03/2017 None Full Exam - General 1994 Constitutional general appearance Assistive Device: cane 08/03/2017 None Full Exam - General 1994 Eyes conjunctiva /eyelids Eyelid: edema 08/03/2017 --Resolved Full Exam - General 1994 Eyes conjunctiva /eyelids Eyelid: erythema 08/03/2017 --Improved Full Exam - General 1994 Eyes pupils and irises Overall: pupils equal, round, reactive to light and accomodation 08/03/2017 None Full Exam - General 1994 Ears/Nose/Throat otoscopic exam Overall: external auditory canals clear 08/03/2017 None Full Exam - General 1994 Ears/Nose/Throat otoscopic exam Overall: tympanic membranes clear 08/03/2017 None Full Exam - General 1994 Ears/Nose/Throat lips/teeth/gingiva Overall: benign lips 08/03/2017 None Full Exam - General 1994 Ears/Nose/Throat oral cavity/pharynx/larynx Overall: oral mucosa clear 08/03/2017 None Full Exam - General 1994 Ears/Nose/Throat oral cavity/pharynx/larynx Overall: oropharyngeal mucosa clear 08/03/2017 None Full Exam - General 1994 Respiratory auscultation Diffuse: diminished 08/03/2017 None Full Exam - General 1994 Respiratory respiratory effort/rhythm Overall: no retractions 08/03/2017 None Full Exam - General 1994 Respiratory respiratory effort/rhythm Overall: normal rate 08/03/2017 None Full Exam - General 1994 Cardiovascular extremities Edema present: pitting 08/03/2017 None Full Exam - General 1994 Cardiovascular extremities Edema present: severity 1+ - 4 +: 1+ 08/03/2017 None Full Exam - General 1994 Cardiovascular auscultation of heart Overall: normal heart sounds 08/03/2017 None Full Exam - General 1994 Cardiovascular auscultation of heart Overall: no murmurs 08/03/2017 None Full Exam - General 1994 Cardiovascular auscultation of heart Rate: regular rate 08/03/2017 None Full Exam - General 1994 Abdomen abdominal exam Overall: normal bowel sounds 08/03/2017 None Full Exam - General 1994 Abdomen abdominal exam Contour: rounded 08/03/2017 None Full Exam - General 1994 Abdomen abdominal exam Upper quadrant: tender to palpation 08/03/2017 None Full Exam - General 1994 Abdomen abdominal exam Lower quadrant: tender to palpation 08/03/2017 None Full Exam - General 1994 Lymphatic neck nodes Overall: anterior cervical chain benign 08/03/2017 None Full Exam - General 1994 Lymphatic neck nodes Overall: posterior cervical chain benign 08/03/2017 None Full Exam - General 1994 Neurologic mental status Overall: alert 08/03/2017 None Full Exam - General 1994 Neurologic mental status Overall: oriented 08/03/2017 None Full Exam - General 1994 Neurologic cranial nerves Overall: crainial nerves 2 - 12 grossly intact 08/03/2017 None Full Exam - General 1994 Psychiatric orientation/consciousness Overall: oriented to person, place and time 08/03/2017 None Full Exam - General 1994 Psychiatric orientation/consciousness Oriented to person: yes 08/03/2017 None Full Exam - General 1994 Psychiatric orientation/consciousness Oriented to place: yes 08/03/2017 None Full Exam - General 1994 Psychiatric orientation/consciousness Oriented to time: yes 08/03/2017 None Full Exam - General 1994 Psychiatric orientation/consciousness Level of consciousness: alert 08/03/2017 None Full Exam - General 1994 Psychiatric mood and affect Overall: normal mood and affect 08/03/2017 None Full Exam - General 1994 Psychiatric appearance Overall: well-groomed, good eye contact 08/03/2017 None Full Exam - General 1994 Constitutional general appearance Overall: well developed 07/27/2017 None Full Exam - General 1994 Constitutional general appearance Overall: in no acute distress 07/27/2017 None Full Exam - General 1994 Constitutional general appearance Overall: well nourished 07/27/2017 None Full Exam - General 1994 Constitutional general appearance Assistive Device: cane 07/27/2017 None Full Exam - General 1994 Eyes pupils and irises Overall: pupils equal, round, reactive to light and accomodation 07/27/2017 None Full Exam - General 1994 Ears/Nose/Throat otoscopic exam Overall: external auditory canals clear 07/27/2017 None Full Exam - General 1994 Ears/Nose/Throat otoscopic exam Overall: tympanic membranes clear 07/27/2017 None Full Exam - General 1994 Ears/Nose/Throat lips/teeth/gingiva Overall: benign lips 07/27/2017 None Full Exam - General 1994 Ears/Nose/Throat oral cavity/pharynx/larynx Overall: oral mucosa clear 07/27/2017 None Full Exam - General 1994 Ears/Nose/Throat oral cavity/pharynx/larynx Overall: oropharyngeal mucosa clear 07/27/2017 None Full Exam - General 1994 Respiratory auscultation Diffuse: diminished 07/27/2017 None Full Exam - General 1994 Respiratory respiratory effort/rhythm Overall: no retractions 07/27/2017 None Full Exam - General 1994 Respiratory respiratory effort/rhythm Overall: normal rate 07/27/2017 None Full Exam - General 1994 Cardiovascular extremities Edema present: pitting 07/27/2017 None Full Exam - General 1994 Cardiovascular extremities Edema present: severity 1+ - 4 +: 1+ 07/27/2017 None Full Exam - General 1994 Cardiovascular auscultation of heart Overall: normal heart sounds 07/27/2017 None Full Exam - General 1994 Cardiovascular auscultation of heart Overall: no murmurs 07/27/2017 None Full Exam - General 1994 Cardiovascular auscultation of heart Rate: regular rate 07/27/2017 None Full Exam - General 1994 Abdomen abdominal exam Overall: normal bowel sounds 07/27/2017 None Full Exam - General 1994 Abdomen abdominal exam Contour: rounded 07/27/2017 None Full Exam - General 1994 Abdomen abdominal exam Upper quadrant: tender to palpation 07/27/2017 None Full Exam - General 1994 Abdomen abdominal exam Lower quadrant: tender to palpation 07/27/2017 None Full Exam - General 1994 Lymphatic neck nodes Overall: anterior cervical chain benign 07/27/2017 None Full Exam - General 1994 Lymphatic neck nodes Overall: posterior cervical chain benign 07/27/2017 None Full Exam - General 1994 Neurologic mental status Overall: alert 07/27/2017 None Full Exam - General 1994 Neurologic mental status Overall: oriented 07/27/2017 None Full Exam - General 1994 Neurologic cranial nerves Overall: crainial nerves 2 - 12 grossly intact 07/27/2017 None Full Exam - General 1994 Psychiatric orientation/consciousness Overall: oriented to person, place and time 07/27/2017 None Full Exam - General 1994 Psychiatric orientation/consciousness Oriented to person: yes 07/27/2017 None Full Exam - General 1994 Psychiatric orientation/consciousness Oriented to place: yes 07/27/2017 None Full Exam - General 1994 Psychiatric orientation/consciousness Oriented to time: yes 07/27/2017 None Full Exam - General 1994 Psychiatric orientation/consciousness Level of consciousness: alert 07/27/2017 None Full Exam - General 1994 Psychiatric mood and affect Overall: normal mood and affect 07/27/2017 None Full Exam - General 1994 Psychiatric appearance Overall: well-groomed, good eye contact 07/27/2017 None Full Exam - General 1994 Eyes conjunctiva /eyelids Eyelid: edema 07/27/2017 None Full Exam - General 1994 Eyes conjunctiva /eyelids Eyelid: erythema 07/27/2017 None Full Exam - General 1994 Constitutional general appearance Overall: well developed 06/13/2017 None Full Exam - General 1994 Constitutional general appearance Overall: in no acute distress 06/13/2017 None Full Exam - General 1994 Constitutional general appearance Overall: well nourished 06/13/2017 None Full Exam - General 1994 Constitutional general appearance Assistive Device: cane 06/13/2017 None Full Exam - General 1994 Eyes pupils and irises Overall: pupils equal, round, reactive to light and accomodation 06/13/2017 None Full Exam - General 1994 Ears/Nose/Throat otoscopic exam Overall: external auditory canals clear 06/13/2017 None Full Exam - General 1994 Ears/Nose/Throat otoscopic exam Overall: tympanic membranes clear 06/13/2017 None Full Exam - General 1994 Ears/Nose/Throat lips/teeth/gingiva Overall: benign lips 06/13/2017 None Full Exam - General 1994 Ears/Nose/Throat oral cavity/pharynx/larynx Overall: oral mucosa clear 06/13/2017 None Full Exam - General 1994 Ears/Nose/Throat oral cavity/pharynx/larynx Overall: oropharyngeal mucosa clear 06/13/2017 None Full Exam - General 1994 Respiratory auscultation Diffuse: diminished 06/13/2017 None Full Exam - General 1994 Respiratory respiratory effort/rhythm Overall: no retractions 06/13/2017 None Full Exam - General 1994 Respiratory respiratory effort/rhythm Overall: normal rate 06/13/2017 None Full Exam - General 1994 Cardiovascular extremities Edema present: pitting 06/13/2017 None Full Exam - General 1994 Cardiovascular extremities Edema present: severity 1+ - 4 +: 1+ 06/13/2017 None Full Exam - General 1994 Cardiovascular auscultation of heart Overall: normal heart sounds 06/13/2017 None Full Exam - General 1994 Cardiovascular auscultation of heart Overall: no murmurs 06/13/2017 None Full Exam - General 1994 Cardiovascular auscultation of heart Rate: regular rate 06/13/2017 None Full Exam - General 1994 Abdomen abdominal exam Overall: normal bowel sounds 06/13/2017 None Full Exam - General 1994 Abdomen abdominal exam Contour: rounded 06/13/2017 None Full Exam - General 1994 Abdomen abdominal exam Upper quadrant: tender to palpation 06/13/2017 None Full Exam - General 1994 Abdomen abdominal exam Lower quadrant: tender to palpation 06/13/2017 None Full Exam - General 1994 Lymphatic neck nodes Overall: anterior cervical chain benign 06/13/2017 None Full Exam - General 1994 Lymphatic neck nodes Overall: posterior cervical chain benign 06/13/2017 None Full Exam - General 1994 Integument inspection of skin Location: abdomen 06/13/2017 scabbed erythematous lesion at umbilicus Full Exam - General 1994 Neurologic mental status Overall: alert 06/13/2017 None Full Exam - General 1994 Neurologic mental status Overall: oriented 06/13/2017 None Full Exam - General 1994 Neurologic cranial nerves Overall: crainial nerves 2 - 12 grossly intact 06/13/2017 None Full Exam - General 1994 Psychiatric orientation/consciousness Overall: oriented to person, place and time 06/13/2017 None Full Exam - General 1994 Psychiatric orientation/consciousness Oriented to person: yes 06/13/2017 None Full Exam - General 1994 Psychiatric orientation/consciousness Oriented to place: yes 06/13/2017 None Full Exam - General 1994 Psychiatric orientation/consciousness Oriented to time: yes 06/13/2017 None Full Exam - General 1994 Psychiatric orientation/consciousness Level of consciousness: alert 06/13/2017 None Full Exam - General 1994 Psychiatric mood and affect Overall: normal mood and affect 06/13/2017 None Full Exam - General 1994 Psychiatric appearance Overall: well-groomed, good eye contact 06/13/2017 None Full Exam - General 1994 Constitutional general appearance Overall: well developed 04/21/2017 None Full Exam - General 1994 Constitutional general appearance Overall: in no acute distress 04/21/2017 None Full Exam - General 1994 Constitutional general appearance Overall: well nourished 04/21/2017 None Full Exam - General 1994 Constitutional general appearance Assistive Device: cane 04/21/2017 None Full Exam - General 1994 Eyes pupils and irises Overall: pupils equal, round, reactive to light and accomodation 04/21/2017 None Full Exam - General 1994 Respiratory auscultation Diffuse: diminished 04/21/2017 None Full Exam - General 1994 Respiratory respiratory effort/rhythm Overall: no retractions 04/21/2017 None Full Exam - General 1994 Respiratory respiratory effort/rhythm Overall: normal rate 04/21/2017 None Full Exam - General 1994 Cardiovascular extremities Edema present: pitting 04/21/2017 None Full Exam - General 1994 Cardiovascular extremities Edema present: severity 1+ - 4 +: 1+ 04/21/2017 None Full Exam - General 1994 Cardiovascular auscultation of heart Overall: normal heart sounds 04/21/2017 None Full Exam - General 1994 Cardiovascular auscultation of heart Overall: no murmurs 04/21/2017 None Full Exam - General 1994 Cardiovascular auscultation of heart Rate: regular rate 04/21/2017 None Full Exam - General 1994 Neurologic mental status Overall: alert 04/21/2017 None Full Exam - General 1994 Neurologic mental status Overall: oriented 04/21/2017 None Full Exam - General 1994 Neurologic cranial nerves Overall: crainial nerves 2 - 12 grossly intact 04/21/2017 None Full Exam - General 1994 Psychiatric orientation/consciousness Overall: oriented to person, place and time 04/21/2017 None Full Exam - General 1994 Psychiatric mood and affect Overall: normal mood and affect 04/21/2017 None Full Exam - General 1994 Psychiatric appearance Overall: well-groomed, good eye contact 04/21/2017 None Full Exam - General 1994 Ears/Nose/Throat lips/teeth/gingiva Teeth: broken teeth 04/21/2017 None Full Exam - General 1994 Ears/Nose/Throat lips/teeth/gingiva Teeth: dental caries 04/21/2017 small pustule noted to right upper, interior jaw near broken tooth Full Exam - General 1994 Constitutional general appearance Overall: well developed 04/18/2017 None Full Exam - General 1994 Constitutional general appearance Overall: in no acute distress 04/18/2017 None Full Exam - General 1994 Constitutional general appearance Overall: well nourished 04/18/2017 None Full Exam - General 1994 Constitutional general appearance Assistive Device: cane 04/18/2017 None Full Exam - General 1994 Eyes pupils and irises Overall: pupils equal, round, reactive to light and accomodation 04/18/2017 None Full Exam - General 1994 Ears/Nose/Throat otoscopic exam Overall: external auditory canals clear 04/18/2017 None Full Exam - General 1994 Ears/Nose/Throat otoscopic exam Overall: tympanic membranes clear 04/18/2017 None Full Exam - General 1994 Ears/Nose/Throat lips/teeth/gingiva Overall: benign lips 04/18/2017 None Full Exam - General 1994 Ears/Nose/Throat oral cavity/pharynx/larynx Overall: oral mucosa clear 04/18/2017 None Full Exam - General 1994 Ears/Nose/Throat oral cavity/pharynx/larynx Overall: oropharyngeal mucosa clear 04/18/2017 None Full Exam - General 1994 Respiratory auscultation Diffuse: diminished 04/18/2017 None Full Exam - General 1994 Respiratory respiratory effort/rhythm Overall: no retractions 04/18/2017 None Full Exam - General 1994 Respiratory respiratory effort/rhythm Overall: normal rate 04/18/2017 None Full Exam - General 1994 Cardiovascular extremities Edema present: pitting 04/18/2017 None Full Exam - General 1994 Cardiovascular extremities Edema present: severity 1+ - 4 +: 1+ 04/18/2017 None Full Exam - General 1994 Cardiovascular auscultation of heart Overall: normal heart sounds 04/18/2017 None Full Exam - General 1994 Cardiovascular auscultation of heart Overall: no murmurs 04/18/2017 None Full Exam - General 1994 Cardiovascular auscultation of heart Rate: regular rate 04/18/2017 None Full Exam - General 1994 Abdomen abdominal exam Contour: rounded 04/18/2017 None Full Exam - General 1994 Lymphatic neck nodes Overall: anterior cervical chain benign 04/18/2017 None Full Exam - General 1994 Lymphatic neck nodes Overall: posterior cervical chain benign 04/18/2017 None Full Exam - General 1994 Neurologic mental status Overall: alert 04/18/2017 None Full Exam - General 1994 Neurologic mental status Overall: oriented 04/18/2017 None Full Exam - General 1994 Neurologic cranial nerves Overall: crainial nerves 2 - 12 grossly intact 04/18/2017 None Full Exam - General 1994 Psychiatric orientation/consciousness Overall: oriented to person, place and time 04/18/2017 None Full Exam - General 1994 Psychiatric orientation/consciousness Oriented to person: yes 04/18/2017 None Full Exam - General 1994 Psychiatric orientation/consciousness Oriented to place: yes 04/18/2017 None Full Exam - General 1994 Psychiatric orientation/consciousness Oriented to time: yes 04/18/2017 None Full Exam - General 1994 Psychiatric orientation/consciousness Level of consciousness: alert 04/18/2017 None Full Exam - General 1994 Psychiatric mood and affect Overall: normal mood and affect 04/18/2017 None Full Exam - General 1994 Psychiatric appearance Overall: well-groomed, good eye contact 04/18/2017 None Full Exam - General 1994 Abdomen abdominal exam Overall: normal bowel sounds 04/18/2017 None Full Exam - General 1994 Abdomen abdominal exam Lower quadrant: tender to palpation 04/18/2017 None Full Exam - General 1994 Abdomen abdominal exam Upper quadrant: tender to palpation 04/18/2017 None Full Exam - General 1994 Integument inspection of skin Location: abdomen 04/18/2017 scabbed erythematous lesion at umbilicus Full Exam - General 1994 Constitutional general appearance Overall: well developed 03/27/2017 None Full Exam - General 1994 Constitutional general appearance Overall: in no acute distress 03/27/2017 None Full Exam - General 1994 Constitutional general appearance Overall: well nourished 03/27/2017 None Full Exam - General 1994 Constitutional general appearance Assistive Device: cane 03/27/2017 None Full Exam - General 1994 Eyes pupils and irises Overall: pupils equal, round, reactive to light and accomodation 03/27/2017 None Full Exam - General 1994 Ears/Nose/Throat otoscopic exam Overall: external auditory canals clear 03/27/2017 None Full Exam - General 1994 Ears/Nose/Throat otoscopic exam Overall: tympanic membranes clear 03/27/2017 None Full Exam - General 1994 Ears/Nose/Throat lips/teeth/gingiva Overall: benign lips 03/27/2017 None Full Exam - General 1994 Ears/Nose/Throat oral cavity/pharynx/larynx Overall: oral mucosa clear 03/27/2017 None Full Exam - General 1994 Ears/Nose/Throat oral cavity/pharynx/larynx Overall: oropharyngeal mucosa clear 03/27/2017 None Full Exam - General 1994 Respiratory auscultation Diffuse: diminished 03/27/2017 None Full Exam - General 1994 Respiratory respiratory effort/rhythm Overall: no retractions 03/27/2017 None Full Exam - General 1994 Respiratory respiratory effort/rhythm Overall: normal rate 03/27/2017 None Full Exam - General 1994 Cardiovascular extremities Edema present: pitting 03/27/2017 None Full Exam - General 1994 Cardiovascular extremities Edema present: severity 1+ - 4 +: 1+ 03/27/2017 None Full Exam - General 1994 Cardiovascular auscultation of heart Overall: normal heart sounds 03/27/2017 None Full Exam - General 1994 Cardiovascular auscultation of heart Overall: no murmurs 03/27/2017 None Full Exam - General 1994 Abdomen abdominal exam Contour: rounded 03/27/2017 None Full Exam - General 1994 Lymphatic neck nodes Overall: anterior cervical chain benign 03/27/2017 None Full Exam - General 1994 Lymphatic neck nodes Overall: posterior cervical chain benign 03/27/2017 None Full Exam - General 1994 Neurologic mental status Overall: alert 03/27/2017 None Full Exam - General 1994 Neurologic mental status Overall: oriented 03/27/2017 None Full Exam - General 1994 Neurologic cranial nerves Overall: crainial nerves 2 - 12 grossly intact 03/27/2017 None Full Exam - General 1994 Psychiatric orientation/consciousness Overall: oriented to person, place and time 03/27/2017 None Full Exam - General 1994 Psychiatric orientation/consciousness Oriented to person: yes 03/27/2017 None Full Exam - General 1994 Psychiatric orientation/consciousness Oriented to place: yes 03/27/2017 None Full Exam - General 1994 Psychiatric orientation/consciousness Oriented to time: yes 03/27/2017 None Full Exam - General 1994 Psychiatric orientation/consciousness Level of consciousness: alert 03/27/2017 None Full Exam - General 1994 Psychiatric mood and affect Overall: normal mood and affect 03/27/2017 None Full Exam - General 1994 Psychiatric appearance Overall: well-groomed, good eye contact 03/27/2017 None Full Exam - General 1994 Cardiovascular auscultation of heart Rate: regular rate 03/27/2017 None Full Exam - General 1994 Constitutional general appearance Overall: well developed 02/27/2017 None Full Exam - General 1994 Constitutional general appearance Overall: in no acute distress 02/27/2017 None Full Exam - General 1994 Constitutional general appearance Overall: well nourished 02/27/2017 None Full Exam - General 1994 Eyes pupils and irises Overall: pupils equal, round, reactive to light and accomodation 02/27/2017 None Full Exam - General 1994 Ears/Nose/Throat otoscopic exam Overall: external auditory canals clear 02/27/2017 None Full Exam - General 1994 Ears/Nose/Throat otoscopic exam Overall: tympanic membranes clear 02/27/2017 None Full Exam - General 1994 Ears/Nose/Throat lips/teeth/gingiva Overall: benign lips 02/27/2017 None Full Exam - General 1994 Ears/Nose/Throat oral cavity/pharynx/larynx Overall: oral mucosa clear 02/27/2017 None Full Exam - General 1994 Ears/Nose/Throat oral cavity/pharynx/larynx Overall: oropharyngeal mucosa clear 02/27/2017 None Full Exam - General 1994 Respiratory auscultation Diffuse: diminished 02/27/2017 None Full Exam - General 1994 Respiratory respiratory effort/rhythm Overall: no retractions 02/27/2017 None Full Exam - General 1994 Respiratory respiratory effort/rhythm Overall: normal rate 02/27/2017 None Full Exam - General 1994 Cardiovascular extremities Edema present: pitting 02/27/2017 None Full Exam - General 1994 Cardiovascular extremities Edema present: severity 1+ - 4 +: 1+ 02/27/2017 None Full Exam - General 1994 Cardiovascular auscultation of heart Overall: normal heart sounds 02/27/2017 None Full Exam - General 1994 Cardiovascular auscultation of heart Overall: no murmurs 02/27/2017 None Full Exam - General 1994 Cardiovascular auscultation of heart Rate: tachycardia 02/27/2017 None Full Exam - General 1994 Abdomen abdominal exam Contour: rounded 02/27/2017 None Full Exam - General 1994 Lymphatic neck nodes Overall: anterior cervical chain benign 02/27/2017 None Full Exam - General 1994 Lymphatic neck nodes Overall: posterior cervical chain benign 02/27/2017 None Full Exam - General 1994 Neurologic mental status Overall: alert 02/27/2017 None Full Exam - General 1994 Neurologic mental status Overall: oriented 02/27/2017 None Full Exam - General 1994 Neurologic cranial nerves Overall: crainial nerves 2 - 12 grossly intact 02/27/2017 None Full Exam - General 1994 Psychiatric orientation/consciousness Overall: oriented to person, place and time 02/27/2017 None Full Exam - General 1994 Psychiatric orientation/consciousness Oriented to person: yes 02/27/2017 None Full Exam - General 1994 Psychiatric orientation/consciousness Oriented to place: yes 02/27/2017 None Full Exam - General 1994 Psychiatric orientation/consciousness Oriented to time: yes 02/27/2017 None Full Exam - General 1994 Psychiatric orientation/consciousness Level of consciousness: alert 02/27/2017 None Full Exam - General 1994 Psychiatric mood and affect Overall: normal mood and affect 02/27/2017 None Full Exam - General 1994 Psychiatric appearance Overall: well-groomed, good eye contact 02/27/2017 None Full Exam - General 1994 Constitutional general appearance Assistive Device: cane 02/27/2017 None Full Exam - General 1994 Constitutional general appearance Overall: well developed 02/21/2017 None Full Exam - General 1994 Constitutional general appearance Overall: well nourished 02/21/2017 None Full Exam - General 1994 Eyes pupils and irises Overall: pupils equal, round, reactive to light and accomodation 02/21/2017 None Full Exam - General 1994 Ears/Nose/Throat otoscopic exam Overall: external auditory canals clear 02/21/2017 None Full Exam - General 1994 Ears/Nose/Throat otoscopic exam Tympanic membrane: air- fluid level 02/21/2017 None Full Exam - General 1994 Ears/Nose/Throat internal nose Drainage: clear 02/21/2017 None Full Exam - General 1994 Ears/Nose/Throat oral cavity/pharynx/larynx Overall: oral mucosa clear 02/21/2017 None Full Exam - General 1994 Respiratory auscultation Overall: breath sounds clear bilaterally 02/21/2017 None Full Exam - General 1994 Respiratory respiratory effort/rhythm Overall: no retractions 02/21/2017 None Full Exam - General 1994 Respiratory respiratory effort/rhythm Overall: normal rate 02/21/2017 None Full Exam - General 1994 Cardiovascular extremities Edema present: pitting 02/21/2017 None Full Exam - General 1994 Cardiovascular extremities Edema present: severity 1+ - 4 +: 1+ 02/21/2017 None Full Exam - General 1994 Cardiovascular auscultation of heart Overall: regular rate 02/21/2017 None Full Exam - General 1994 Cardiovascular auscultation of heart Overall: normal heart sounds 02/21/2017 None Full Exam - General 1994 Cardiovascular auscultation of heart Overall: no murmurs 02/21/2017 None Full Exam - General 1994 Abdomen abdominal exam Contour: rounded 02/21/2017 None Full Exam - General 1994 Abdomen abdominal exam Bowel sounds: hypoactive 02/21/2017 None Full Exam - General 1994 Abdomen abdominal exam Lower quadrant: tender to palpation 02/21/2017 --Improved Full Exam - General 1994 Abdomen abdominal exam Lower quadrant: sharp pain 02/21/2017 --Improved Full Exam - General 1994 Lymphatic neck nodes Overall: anterior cervical chain benign 02/21/2017 None Full Exam - General 1994 Lymphatic neck nodes Overall: posterior cervical chain benign 02/21/2017 None Full Exam - General 1994 Integument inspection of skin Pigmentation: hemosideran pigment changes 02/21/2017 None Full Exam - General 1994 Neurologic mental status Overall: alert 02/21/2017 None Full Exam - General 1994 Neurologic mental status Overall: oriented 02/21/2017 None Full Exam - General 1994 Psychiatric orientation/consciousness Overall: oriented to person, place and time 02/21/2017 None Full Exam - General 1994 Psychiatric orientation/consciousness Oriented to person: yes 02/21/2017 None Full Exam - General 1994 Psychiatric orientation/consciousness Oriented to place: yes 02/21/2017 None Full Exam - General 1994 Psychiatric orientation/consciousness Oriented to time: yes 02/21/2017 None Full Exam - General 1994 Psychiatric orientation/consciousness Level of consciousness: alert 02/21/2017 None Full Exam - General 1994 Constitutional general appearance Overall: well developed 02/17/2017 None Full Exam - General 1994 Constitutional general appearance Overall: well nourished 02/17/2017 None Full Exam - General 1994 Eyes pupils and irises Overall: pupils equal, round, reactive to light and accomodation 02/17/2017 None Full Exam - General 1994 Ears/Nose/Throat otoscopic exam Overall: external auditory canals clear 02/17/2017 None Full Exam - General 1994 Ears/Nose/Throat otoscopic exam Tympanic membrane: air- fluid level 02/17/2017 None Full Exam - General 1994 Ears/Nose/Throat internal nose Drainage: clear 02/17/2017 None Full Exam - General 1994 Ears/Nose/Throat oral cavity/pharynx/larynx Overall: oral mucosa clear 02/17/2017 None Full Exam - General 1994 Respiratory auscultation Overall: breath sounds clear bilaterally 02/17/2017 None Full Exam - General 1994 Respiratory respiratory effort/rhythm Overall: no retractions 02/17/2017 None Full Exam - General 1994 Respiratory respiratory effort/rhythm Overall: normal rate 02/17/2017 None Full Exam - General 1994 Cardiovascular extremities Edema present: pitting 02/17/2017 None Full Exam - General 1994 Cardiovascular extremities Edema present: severity 1+ - 4 +: 1+ 02/17/2017 None Full Exam - General 1994 Cardiovascular auscultation of heart Overall: regular rate 02/17/2017 None Full Exam - General 1994 Cardiovascular auscultation of heart Overall: normal heart sounds 02/17/2017 None Full Exam - General 1994 Cardiovascular auscultation of heart Overall: no murmurs 02/17/2017 None Full Exam - General 1994 Abdomen abdominal exam Contour: rounded 02/17/2017 None Full Exam - General 1994 Lymphatic neck nodes Overall: anterior cervical chain benign 02/17/2017 None Full Exam - General 1994 Lymphatic neck nodes Overall: posterior cervical chain benign 02/17/2017 None Full Exam - General 1994 Integument inspection of skin Pigmentation: hemosideran pigment changes 02/17/2017 None Full Exam - General 1994 Neurologic mental status Overall: alert 02/17/2017 None Full Exam - General 1994 Neurologic mental status Overall: oriented 02/17/2017 None Full Exam - General 1994 Psychiatric orientation/consciousness Overall: oriented to person, place and time 02/17/2017 None Full Exam - General 1994 Psychiatric orientation/consciousness Oriented to person: yes 02/17/2017 None Full Exam - General 1994 Psychiatric orientation/consciousness Oriented to place: yes 02/17/2017 None Full Exam - General 1994 Psychiatric orientation/consciousness Oriented to time: yes 02/17/2017 None Full Exam - General 1994 Psychiatric orientation/consciousness Level of consciousness: alert 02/17/2017 None Full Exam - General 1994 Constitutional general appearance Evidence of Distress: in distress secondary to pain 02/17/2017 None Full Exam - General 1994 Abdomen abdominal exam Bowel sounds: hypoactive 02/17/2017 None Full Exam - General 1994 Abdomen abdominal exam Lower quadrant: sharp pain 02/17/2017 None Full Exam - General 1994 Abdomen abdominal exam Lower quadrant: tender to palpation 02/17/2017 None Full Exam - General 1994 Constitutional general appearance Overall: well developed 02/13/2017 None Full Exam - General 1994 Constitutional general appearance Overall: in no acute distress 02/13/2017 None Full Exam - General 1994 Constitutional general appearance Overall: well nourished 02/13/2017 None Full Exam - General 1994 Eyes pupils and irises Overall: pupils equal, round, reactive to light and accomodation 02/13/2017 None Full Exam - General 1994 Ears/Nose/Throat otoscopic exam Overall: external auditory canals clear 02/13/2017 None Full Exam - General 1994 Ears/Nose/Throat otoscopic exam Tympanic membrane: air- fluid level 02/13/2017 None Full Exam - General 1994 Ears/Nose/Throat internal nose Drainage: clear 02/13/2017 None Full Exam - General 1994 Ears/Nose/Throat oral cavity/pharynx/larynx Overall: oral mucosa clear 02/13/2017 None Full Exam - General 1994 Respiratory auscultation Overall: breath sounds clear bilaterally 02/13/2017 None Full Exam - General 1994 Respiratory respiratory effort/rhythm Overall: no retractions 02/13/2017 None Full Exam - General 1994 Respiratory respiratory effort/rhythm Overall: normal rate 02/13/2017 None Full Exam - General 1994 Cardiovascular extremities Edema present: pitting 02/13/2017 None Full Exam - General 1994 Cardiovascular extremities Edema present: severity 1+ - 4 +: 1+ 02/13/2017 None Full Exam - General 1994 Cardiovascular auscultation of heart Overall: regular rate 02/13/2017 None Full Exam - General 1994 Cardiovascular auscultation of heart Overall: normal heart sounds 02/13/2017 None Full Exam - General 1994 Cardiovascular auscultation of heart Overall: no murmurs 02/13/2017 None Full Exam - General 1994 Abdomen abdominal exam Contour: rounded 02/13/2017 None Full Exam - General 1994 Lymphatic neck nodes Overall: anterior cervical chain benign 02/13/2017 None Full Exam - General 1994 Lymphatic neck nodes Overall: posterior cervical chain benign 02/13/2017 None Full Exam - General 1994 Integument inspection of skin Pigmentation: hemosideran pigment changes 02/13/2017 None Full Exam - General 1994 Neurologic mental status Overall: alert 02/13/2017 None Full Exam - General 1994 Neurologic mental status Overall: oriented 02/13/2017 None Full Exam - General 1994 Psychiatric orientation/consciousness Overall: oriented to person, place and time 02/13/2017 None Full Exam - General 1994 Psychiatric orientation/consciousness Oriented to person: yes 02/13/2017 None Full Exam - General 1994 Psychiatric orientation/consciousness Oriented to place: yes 02/13/2017 None Full Exam - General 1994 Psychiatric orientation/consciousness Oriented to time: yes 02/13/2017 None Full Exam - General 1994 Psychiatric orientation/consciousness Level of consciousness: alert 02/13/2017 None Full Exam - General 1994 Constitutional general appearance Overall: well developed 01/30/2017 None Full Exam - General 1994 Constitutional general appearance Overall: in no acute distress 01/30/2017 None Full Exam - General 1994 Constitutional general appearance Overall: well nourished 01/30/2017 None Full Exam - General 1994 Eyes pupils and irises Overall: pupils equal, round, reactive to light and accomodation 01/30/2017 None Full Exam - General 1994 Ears/Nose/Throat otoscopic exam Overall: external auditory canals clear 01/30/2017 None Full Exam - General 1994 Ears/Nose/Throat otoscopic exam Tympanic membrane: air- fluid level 01/30/2017 None Full Exam - General 1994 Ears/Nose/Throat internal nose Drainage: clear 01/30/2017 None Full Exam - General 1994 Ears/Nose/Throat oral cavity/pharynx/larynx Overall: oral mucosa clear 01/30/2017 None Full Exam - General 1994 Respiratory auscultation Overall: breath sounds clear bilaterally 01/30/2017 None Full Exam - General 1994 Respiratory respiratory effort/rhythm Overall: no retractions 01/30/2017 None Full Exam - General 1994 Respiratory respiratory effort/rhythm Overall: normal rate 01/30/2017 None Full Exam - General 1994 Cardiovascular extremities Edema present: pitting 01/30/2017 None Full Exam - General 1994 Cardiovascular extremities Edema present: severity 1+ - 4 +: 1+ 01/30/2017 None Full Exam - General 1994 Cardiovascular auscultation of heart Overall: regular rate 01/30/2017 None Full Exam - General 1994 Cardiovascular auscultation of heart Overall: normal heart sounds 01/30/2017 None Full Exam - General 1994 Cardiovascular auscultation of heart Overall: no murmurs 01/30/2017 None Full Exam - General 1994 Abdomen abdominal exam Contour: rounded 01/30/2017 None Full Exam - General 1994 Lymphatic neck nodes Overall: anterior cervical chain benign 01/30/2017 None Full Exam - General 1994 Lymphatic neck nodes Overall: posterior cervical chain benign 01/30/2017 None Full Exam - General 1994 Musculoskeletal lower extremity Inspection - knee: swelling 01/30/2017 None Full Exam - General 1994 Integument inspection of skin Pigmentation: hemosideran pigment changes 01/30/2017 None Full Exam - General 1994 Neurologic mental status Overall: alert 01/30/2017 None Full Exam - General 1994 Neurologic mental status Overall: oriented 01/30/2017 None Full Exam - General 1994 Psychiatric orientation/consciousness Overall: oriented to person, place and time 01/30/2017 None Full Exam - General 1994 Psychiatric orientation/consciousness Oriented to person: yes 01/30/2017 None Full Exam - General 1994 Psychiatric orientation/consciousness Oriented to place: yes 01/30/2017 None Full Exam - General 1994 Psychiatric orientation/consciousness Oriented to time: yes 01/30/2017 None Full Exam - General 1994 Psychiatric orientation/consciousness Level of consciousness: alert 01/30/2017 None Full Exam - General 1994 Musculoskeletal upper extremity Inspection - shoulder: swelling 01/30/2017 None Full Exam - General 1994 Musculoskeletal upper extremity Inspection - upper arm: swelling 01/30/2017 None Full Exam - General 1994 Constitutional general appearance Overall: well developed 01/16/2017 None Full Exam - General 1994 Constitutional general appearance Overall: in no acute distress 01/16/2017 None Full Exam - General 1994 Constitutional general appearance Overall: well nourished 01/16/2017 None Full Exam - General 1994 Eyes pupils and irises Overall: pupils equal, round, reactive to light and accomodation 01/16/2017 None Full Exam - General 1994 Ears/Nose/Throat otoscopic exam Overall: external auditory canals clear 01/16/2017 None Full Exam - General 1994 Ears/Nose/Throat otoscopic exam Tympanic membrane: air- fluid level 01/16/2017 None Full Exam - General 1994 Ears/Nose/Throat internal nose Drainage: clear 01/16/2017 None Full Exam - General 1994 Ears/Nose/Throat oral cavity/pharynx/larynx Overall: oral mucosa clear 01/16/2017 None Full Exam - General 1994 Respiratory auscultation Overall: breath sounds clear bilaterally 01/16/2017 None Full Exam - General 1994 Respiratory respiratory effort/rhythm Overall: no retractions 01/16/2017 None Full Exam - General 1994 Respiratory respiratory effort/rhythm Overall: normal rate 01/16/2017 None Full Exam - General 1994 Cardiovascular extremities Edema present: pitting 01/16/2017 None Full Exam - General 1994 Cardiovascular extremities Edema present: severity 1+ - 4 +: 1+ 01/16/2017 None Full Exam - General 1994 Cardiovascular auscultation of heart Overall: regular rate 01/16/2017 None Full Exam - General 1994 Cardiovascular auscultation of heart Overall: normal heart sounds 01/16/2017 None Full Exam - General 1994 Cardiovascular auscultation of heart Overall: no murmurs 01/16/2017 None Full Exam - General 1994 Abdomen abdominal exam Contour: rounded 01/16/2017 None Full Exam - General 1994 Lymphatic neck nodes Overall: anterior cervical chain benign 01/16/2017 None Full Exam - General 1994 Lymphatic neck nodes Overall: posterior cervical chain benign 01/16/2017 None Full Exam - General 1994 Musculoskeletal lower extremity Inspection - knee: swelling 01/16/2017 None Full Exam - General 1994 Integument inspection of skin Pigmentation: hemosideran pigment changes 01/16/2017 None Full Exam - General 1994 Neurologic mental status Overall: alert 01/16/2017 None Full Exam - General 1994 Neurologic mental status Overall: oriented 01/16/2017 None Full Exam - General 1994 Psychiatric orientation/consciousness Overall: oriented to person, place and time 01/16/2017 None Full Exam - General 1994 Psychiatric orientation/consciousness Oriented to person: yes 01/16/2017 None Full Exam - General 1994 Psychiatric orientation/consciousness Oriented to place: yes 01/16/2017 None Full Exam - General 1994 Psychiatric orientation/consciousness Oriented to time: yes 01/16/2017 None Full Exam - General 1994 Psychiatric orientation/consciousness Level of consciousness: alert 01/16/2017 None Full Exam - ENT Constitutional general appearance Overall: well nourished 12/13/2016 None Full Exam - ENT Constitutional general appearance Overall: well developed 12/13/2016 None Full Exam - ENT Constitutional general appearance Overall: in no acute distress 12/13/2016 None Full Exam - ENT Ears/Nose/Throat otoscopic exam Overall: external auditory canals normal 12/13/2016 None Full Exam - ENT Ears/Nose/Throat otoscopic exam Left tympanic membrane: air -fluid level 12/13/2016 None Full Exam - ENT Ears/Nose/Throat otoscopic exam Right tympanic membrane: air-fluid level 12/13/2016 None Full Exam - ENT Ears/Nose/Throat lips/ teeth/gingiva Overall: benign lips 12/13/2016 None Full Exam - ENT Ears/Nose/Throat oropharynx Overall: oral mucosa clear 12/13/2016 None Full Exam - ENT Ears/Nose/Throat oropharynx Posterior Pharynx: purulent post nasal drainage 12/13/2016 None Full Exam - ENT Face and Head palpation Overall: no sinus tenderness 12/13/2016 None Full Exam - ENT Respiratory inspection Overall: no retractions 12/13/2016 None Full Exam - ENT Respiratory inspection Overall: normal rate None Full Exam - ENT Respiratory auscultation Diffuse: diminished None Full Exam - ENT Cardiovascular auscultation of heart Overall: regular rate 12/13/2016 None Full Exam - ENT Cardiovascular auscultation of heart Overall: normal heart sounds 12/13/2016 None Full Exam - ENT Lymphatic palpation of lymph nodes Overall: posterior cervical chain benign 12/13/2016 None Full Exam - ENT Lymphatic palpation of lymph nodes Overall: anterior cervical chain benign 12/13/2016 None Full Exam - ENT Musculoskeletal head and neck Overall: head atraumatic 12/13/2016 None Full Exam - ENT Musculoskeletal head and neck Overall: cervical spine benign 12/13/2016 None Full Exam - ENT Neurologic mood and affect Overall: normal mood 12/13/2016 None Full Exam - ENT Neurologic mood and affect Overall: normal affect 12/13/2016 None Full Exam - ENT Neurologic orientation Overall: oriented to person, place and time 12/13/2016 None Full Exam - ENT Neurologic cranial nerves /coordination CN7: able to puff cheeks 12/13/2016 None Full Exam - ENT Neurologic cranial nerves /coordination CN9/10: palate elevation symmetric 12/13/2016 None Full Exam - ENT Neurologic cranial nerves /coordination CN11: left shoulder shrug normal 12/13/2016 None Full Exam - ENT Neurologic cranial nerves /coordination CN11: right shoulder shrug normal 12/13/2016 None Full Exam - ENT Neurologic cranial nerves /coordination CN3,4,6: left lateral gaze paralysis 12/13/2016 None Full Exam - General 1994 Constitutional general appearance Overall: well developed 11/11/2016 None Full Exam - General 1994 Constitutional general appearance Overall: in no acute distress 11/11/2016 None Full Exam - General 1994 Constitutional general appearance Overall: well nourished 11/11/2016 None Full Exam - General 1994 Eyes pupils and irises Overall: pupils equal, round, reactive to light and accomodation 11/11/2016 None Full Exam - General 1994 Ears/Nose/Throat otoscopic exam Overall: external auditory canals clear 11/11/2016 None Full Exam - General 1994 Ears/Nose/Throat otoscopic exam Tympanic membrane: air- fluid level 11/11/2016 None Full Exam - General 1994 Ears/Nose/Throat internal nose Drainage: clear 11/11/2016 None Full Exam - General 1994 Ears/Nose/Throat oral cavity/pharynx/larynx Overall: oral mucosa clear 11/11/2016 None Full Exam - General 1994 Respiratory auscultation Overall: breath sounds clear bilaterally 11/11/2016 None Full Exam - General 1994 Respiratory respiratory effort/rhythm Overall: no retractions 11/11/2016 None Full Exam - General 1994 Respiratory respiratory effort/rhythm Overall: normal rate 11/11/2016 None Full Exam - General 1994 Cardiovascular extremities Edema present: pitting 11/11/2016 None Full Exam - General 1994 Cardiovascular extremities Edema present: severity 1+ - 4 +: 1+ 11/11/2016 None Full Exam - General 1994 Cardiovascular auscultation of heart Overall: regular rate 11/11/2016 None Full Exam - General 1994 Cardiovascular auscultation of heart Overall: normal heart sounds 11/11/2016 None Full Exam - General 1994 Cardiovascular auscultation of heart Overall: no murmurs 11/11/2016 None Full Exam - General 1994 Abdomen abdominal exam Contour: rounded 11/11/2016 None Full Exam - General 1994 Lymphatic neck nodes Overall: anterior cervical chain benign 11/11/2016 None Full Exam - General 1994 Lymphatic neck nodes Overall: posterior cervical chain benign 11/11/2016 None Full Exam - General 1994 Musculoskeletal lower extremity Inspection - knee: swelling 11/11/2016 None Full Exam - General 1994 Integument inspection of skin Location: right arm 11/11/2016 scabbed rash right upper inner arm Full Exam - General 1994 Integument inspection of skin Pigmentation: hemosideran pigment changes 11/11/2016 None Full Exam - General 1994 Neurologic mental status Overall: alert 11/11/2016 None Full Exam - General 1994 Neurologic mental status Overall: oriented 11/11/2016 None Full Exam - General 1994 Psychiatric orientation/consciousness Overall: oriented to person, place and time 11/11/2016 None Full Exam - General 1994 Psychiatric orientation/consciousness Oriented to person: yes 11/11/2016 None Full Exam - General 1994 Psychiatric orientation/consciousness Oriented to place: yes 11/11/2016 None Full Exam - General 1994 Psychiatric orientation/consciousness Oriented to time: yes 11/11/2016 None Full Exam - General 1994 Psychiatric orientation/consciousness Level of consciousness: alert 11/11/2016 None Full Exam - General 1994 Constitutional general appearance Overall: well developed 10/28/2016 None Full Exam - General 1994 Constitutional general appearance Overall: in no acute distress 10/28/2016 None Full Exam - General 1994 Constitutional general appearance Overall: well nourished 10/28/2016 None Full Exam - General 1994 Eyes pupils and irises Overall: pupils equal, round, reactive to light and accomodation 10/28/2016 None Full Exam - General 1994 Ears/Nose/Throat otoscopic exam Overall: external auditory canals clear 10/28/2016 None Full Exam - General 1994 Ears/Nose/Throat otoscopic exam Tympanic membrane: air- fluid level 10/28/2016 None Full Exam - General 1994 Ears/Nose/Throat internal nose Drainage: clear 10/28/2016 None Full Exam - General 1994 Ears/Nose/Throat oral cavity/pharynx/larynx Overall: oral mucosa clear 10/28/2016 None Full Exam - General 1994 Respiratory auscultation Overall: breath sounds clear bilaterally 10/28/2016 None Full Exam - General 1994 Respiratory respiratory effort/rhythm Overall: no retractions 10/28/2016 None Full Exam - General 1994 Respiratory respiratory effort/rhythm Overall: normal rate 10/28/2016 None Full Exam - General 1994 Cardiovascular extremities Edema present: pitting 10/28/2016 None Full Exam - General 1994 Cardiovascular extremities Edema present: severity 1+ - 4 +: 1+ 10/28/2016 None Full Exam - General 1994 Cardiovascular auscultation of heart Overall: regular rate 10/28/2016 None Full Exam - General 1994 Cardiovascular auscultation of heart Overall: normal heart sounds 10/28/2016 None Full Exam - General 1994 Cardiovascular auscultation of heart Overall: no murmurs 10/28/2016 None Full Exam - General 1994 Abdomen abdominal exam Contour: rounded 10/28/2016 None Full Exam - General 1994 Lymphatic neck nodes Overall: anterior cervical chain benign 10/28/2016 None Full Exam - General 1994 Lymphatic neck nodes Overall: posterior cervical chain benign 10/28/2016 None Full Exam - General 1994 Musculoskeletal lower extremity Inspection - knee: swelling 10/28/2016 None Full Exam - General 1994 Integument inspection of skin Location: right arm 10/28/2016 scabbed rash right upper inner arm Full Exam - General 1994 Integument inspection of skin Pigmentation: hemosideran pigment changes 10/28/2016 None Full Exam - General 1994 Neurologic mental status Overall: alert 10/28/2016 None Full Exam - General 1994 Neurologic mental status Overall: oriented 10/28/2016 None Full Exam - General 1994 Psychiatric orientation/consciousness Overall: oriented to person, place and time 10/28/2016 None Full Exam - General 1994 Psychiatric orientation/consciousness Oriented to person: yes 10/28/2016 None Full Exam - General 1994 Psychiatric orientation/consciousness Oriented to place: yes 10/28/2016 None Full Exam - General 1994 Psychiatric orientation/consciousness Oriented to time: yes 10/28/2016 None Full Exam - General 1994 Psychiatric orientation/consciousness Level of consciousness: alert 10/28/2016 None Full Exam - General 1994 Constitutional general appearance Overall: well developed 10/13/2016 None Full Exam - General 1994 Constitutional general appearance Overall: in no acute distress 10/13/2016 None Full Exam - General 1994 Constitutional general appearance Overall: well nourished 10/13/2016 None Full Exam - General 1994 Eyes pupils and irises Overall: pupils equal, round, reactive to light and accomodation 10/13/2016 None Full Exam - General 1994 Ears/Nose/Throat otoscopic exam Overall: external auditory canals clear 10/13/2016 None Full Exam - General 1994 Ears/Nose/Throat otoscopic exam Tympanic membrane: air- fluid level 10/13/2016 None Full Exam - General 1994 Ears/Nose/Throat internal nose Drainage: clear 10/13/2016 None Full Exam - General 1994 Ears/Nose/Throat oral cavity/pharynx/larynx Overall: oral mucosa clear 10/13/2016 None Full Exam - General 1994 Respiratory auscultation Overall: breath sounds clear bilaterally 10/13/2016 None Full Exam - General 1994 Respiratory respiratory effort/rhythm Overall: no retractions 10/13/2016 None Full Exam - General 1994 Respiratory respiratory effort/rhythm Overall: normal rate 10/13/2016 None Full Exam - General 1994 Cardiovascular extremities Edema present: pitting 10/13/2016 None Full Exam - General 1994 Cardiovascular extremities Edema present: severity 1+ - 4 +: 1+ 10/13/2016 None Full Exam - General 1994 Cardiovascular auscultation of heart Overall: regular rate 10/13/2016 None Full Exam - General 1994 Cardiovascular auscultation of heart Overall: normal heart sounds 10/13/2016 None Full Exam - General 1994 Cardiovascular auscultation of heart Overall: no murmurs 10/13/2016 None Full Exam - General 1994 Abdomen abdominal exam Contour: rounded 10/13/2016 None Full Exam - General 1994 Lymphatic neck nodes Overall: anterior cervical chain benign 10/13/2016 None Full Exam - General 1994 Lymphatic neck nodes Overall: posterior cervical chain benign 10/13/2016 None Full Exam - General 1994 Musculoskeletal lower extremity Inspection - knee: swelling 10/13/2016 None Full Exam - General 1994 Integument inspection of skin Pigmentation: hemosideran pigment changes 10/13/2016 None Full Exam - General 1994 Neurologic mental status Overall: alert 10/13/2016 None Full Exam - General 1994 Neurologic mental status Overall: oriented 10/13/2016 None Full Exam - General 1994 Psychiatric orientation/consciousness Overall: oriented to person, place and time 10/13/2016 None Full Exam - General 1994 Psychiatric orientation/consciousness Oriented to person: yes 10/13/2016 None Full Exam - General 1994 Psychiatric orientation/consciousness Oriented to place: yes 10/13/2016 None Full Exam - General 1994 Psychiatric orientation/consciousness Oriented to time: yes 10/13/2016 None Full Exam - General 1994 Psychiatric orientation/consciousness Level of consciousness: alert 10/13/2016 None Full Exam - General 1994 Integument inspection of skin Location: right arm 10/13/2016 faint papular rash Full Exam - General 1994 Constitutional general appearance Overall: well developed 09/23/2016 None Full Exam - General 1994 Constitutional general appearance Overall: in no acute distress 09/23/2016 None Full Exam - General 1994 Constitutional general appearance Overall: well nourished 09/23/2016 None Full Exam - General 1994 Eyes pupils and irises Overall: pupils equal, round, reactive to light and accomodation 09/23/2016 None Full Exam - General 1994 Ears/Nose/Throat otoscopic exam Overall: external auditory canals clear 09/23/2016 None Full Exam - General 1994 Ears/Nose/Throat otoscopic exam Tympanic membrane: air- fluid level 09/23/2016 None Full Exam - General 1994 Ears/Nose/Throat internal nose Drainage: clear 09/23/2016 None Full Exam - General 1994 Ears/Nose/Throat oral cavity/pharynx/larynx Overall: oral mucosa clear 09/23/2016 None Full Exam - General 1994 Respiratory respiratory effort/rhythm Overall: no retractions 09/23/2016 None Full Exam - General 1994 Respiratory respiratory effort/rhythm Overall: normal rate 09/23/2016 None Full Exam - General 1994 Cardiovascular extremities Edema present: pitting 09/23/2016 None Full Exam - General 1994 Cardiovascular extremities Edema present: severity 1+ - 4 +: 1+ 09/23/2016 None Full Exam - General 1994 Cardiovascular auscultation of heart Overall: regular rate 09/23/2016 None Full Exam - General 1994 Cardiovascular auscultation of heart Overall: normal heart sounds 09/23/2016 None Full Exam - General 1994 Cardiovascular auscultation of heart Overall: no murmurs 09/23/2016 None Full Exam - General 1994 Abdomen abdominal exam Contour: rounded 09/23/2016 None Full Exam - General 1994 Lymphatic neck nodes Overall: anterior cervical chain benign 09/23/2016 None Full Exam - General 1994 Lymphatic neck nodes Overall: posterior cervical chain benign 09/23/2016 None Full Exam - General 1994 Neurologic mental status Overall: alert 09/23/2016 None Full Exam - General 1994 Neurologic mental status Overall: oriented 09/23/2016 None Full Exam - General 1994 Psychiatric orientation/consciousness Overall: oriented to person, place and time 09/23/2016 None Full Exam - General 1994 Psychiatric orientation/consciousness Oriented to person: yes 09/23/2016 None Full Exam - General 1994 Psychiatric orientation/consciousness Oriented to place: yes 09/23/2016 None Full Exam - General 1994 Psychiatric orientation/consciousness Oriented to time: yes 09/23/2016 None Full Exam - General 1994 Psychiatric orientation/consciousness Level of consciousness: alert 09/23/2016 None Full Exam - General 1994 Integument inspection of skin Pigmentation: hemosideran pigment changes 09/23/2016 None Full Exam - General 1994 Musculoskeletal lower extremity Inspection - knee: swelling 09/23/2016 None Full Exam - General 1994 Respiratory auscultation Overall: breath sounds clear bilaterally 09/23/2016 None Full Exam - General 1994 Constitutional general appearance Overall: well developed 09/13/2016 None Full Exam - General 1994 Constitutional general appearance Overall: in no acute distress 09/13/2016 None Full Exam - General 1994 Constitutional general appearance Overall: well nourished 09/13/2016 None Full Exam - General 1994 Eyes conjunctiva /eyelids Overall: conjunctiva clear 09/13/2016 None Full Exam - General 1994 Eyes pupils and irises Overall: pupils equal, round, reactive to light and accomodation 09/13/2016 None Full Exam - General 1994 Ears/Nose/Throat otoscopic exam Overall: external auditory canals clear 09/13/2016 None Full Exam - General 1994 Ears/Nose/Throat otoscopic exam Overall: tympanic membranes clear 09/13/2016 None Full Exam - General 1994 Ears/Nose/Throat lips/teeth/gingiva Overall: benign lips 09/13/2016 None Full Exam - General 1994 Ears/Nose/Throat oral cavity/pharynx/larynx Overall: oral mucosa clear 09/13/2016 None Full Exam - General 1994 Ears/Nose/Throat oral cavity/pharynx/larynx Overall: oropharyngeal mucosa clear 09/13/2016 None Full Exam - General 1994 Respiratory auscultation Diffuse: diminished 09/13/2016 None Full Exam - General 1994 Respiratory respiratory effort/rhythm Overall: no retractions 09/13/2016 None Full Exam - General 1994 Respiratory respiratory effort/rhythm Overall: normal rate 09/13/2016 None Full Exam - General 1994 Cardiovascular extremities Edema present: pitting 09/13/2016 None Full Exam - General 1994 Cardiovascular extremities Edema present: severity 1+ - 4 +: 2+ 09/13/2016 None Full Exam - General 1994 Cardiovascular auscultation of heart Overall: normal heart sounds 09/13/2016 None Full Exam - General 1994 Cardiovascular auscultation of heart Overall: no murmurs 09/13/2016 None Full Exam - General 1994 Cardiovascular auscultation of heart Rate: regular rate 09/13/2016 None Full Exam - General 1994 Abdomen abdominal exam Contour: rounded 09/13/2016 None Full Exam - General 1994 Lymphatic neck nodes Overall: anterior cervical chain benign 09/13/2016 None Full Exam - General 1994 Lymphatic neck nodes Overall: posterior cervical chain benign 09/13/2016 None Full Exam - General 1994 Integument inspection of skin Location: chest 09/13/2016 patch under breasts bilaterally Full Exam - General 1994 Neurologic mental status Overall: alert 09/13/2016 None Full Exam - General 1994 Neurologic mental status Overall: oriented 09/13/2016 None Full Exam - General 1994 Neurologic cranial nerves Overall: crainial nerves 2 - 12 grossly intact 09/13/2016 None Full Exam - General 1994 Psychiatric orientation/consciousness Overall: oriented to person, place and time 09/13/2016 None Full Exam - General 1994 Psychiatric orientation/consciousness Oriented to person: yes 09/13/2016 None Full Exam - General 1994 Psychiatric orientation/consciousness Oriented to place: yes 09/13/2016 None Full Exam - General 1994 Psychiatric orientation/consciousness Oriented to time: yes 09/13/2016 None Full Exam - General 1994 Psychiatric orientation/consciousness Level of consciousness: alert 09/13/2016 None Full Exam - General 1994 Psychiatric mood and affect Overall: normal mood and affect 09/13/2016 None Full Exam - General 1994 Psychiatric appearance Overall: well-groomed, good eye contact 09/13/2016 None Full Exam - General 1994 Musculoskeletal gait and station Gait: asymmetric 09/13/2016 None Full Exam - General 1994 Musculoskeletal upper extremity Palpation - shoulder: glenohumeral joint tenderness 09/13/2016 None Full Exam - General 1994 Musculoskeletal upper extremity Palpation - shoulder: tenderness @ bicipital groove 09/13/2016 None Full Exam - General 1994 Musculoskeletal upper extremity Palpation - shoulder: pain with resisted biceps flexion 09/13/2016 None Full Exam - General 1994 Musculoskeletal upper extremity Palpation - shoulder: pain with resisted internal rotation 09/13/2016 None Full Exam - General 1994 Musculoskeletal upper extremity Palpation - shoulder: pain with resisted external rotation 09/13/2016 None Full Exam - General 1994 Musculoskeletal upper extremity ROM - shoulder: pain with abduction 09/13/2016 None Full Exam - General 1994 Musculoskeletal upper extremity ROM - shoulder: pain with adduction 09/13/2016 None Full Exam - General 1994 Constitutional general appearance Overall: well developed 08/09/2016 None Full Exam - General 1994 Constitutional general appearance Overall: in no acute distress 08/09/2016 None Full Exam - General 1994 Constitutional general appearance Overall: well nourished 08/09/2016 None Full Exam - General 1994 Eyes conjunctiva /eyelids Overall: conjunctiva clear 08/09/2016 None Full Exam - General 1994 Eyes pupils and irises Overall: pupils equal, round, reactive to light and accomodation 08/09/2016 None Full Exam - General 1994 Ears/Nose/Throat otoscopic exam Overall: external auditory canals clear 08/09/2016 None Full Exam - General 1994 Ears/Nose/Throat otoscopic exam Overall: tympanic membranes clear 08/09/2016 None Full Exam - General 1994 Ears/Nose/Throat lips/teeth/gingiva Overall: benign lips 08/09/2016 None Full Exam - General 1994 Ears/Nose/Throat oral cavity/pharynx/larynx Overall: oral mucosa clear 08/09/2016 None Full Exam - General 1994 Ears/Nose/Throat oral cavity/pharynx/larynx Overall: oropharyngeal mucosa clear 08/09/2016 None Full Exam - General 1994 Respiratory auscultation Diffuse: diminished 08/09/2016 None Full Exam - General 1994 Respiratory respiratory effort/rhythm Overall: no retractions 08/09/2016 None Full Exam - General 1994 Respiratory respiratory effort/rhythm Overall: normal rate 08/09/2016 None Full Exam - General 1994 Cardiovascular extremities Edema present: pitting 08/09/2016 None Full Exam - General 1994 Cardiovascular extremities Edema present: severity 1+ - 4 +: 2+ 08/09/2016 None Full Exam - General 1994 Cardiovascular auscultation of heart Overall: normal heart sounds 08/09/2016 None Full Exam - General 1994 Cardiovascular auscultation of heart Overall: no murmurs 08/09/2016 None Full Exam - General 1994 Cardiovascular auscultation of heart Rate: regular rate 08/09/2016 None Full Exam - General 1994 Abdomen abdominal exam Contour: rounded 08/09/2016 None Full Exam - General 1994 Lymphatic neck nodes Overall: anterior cervical chain benign 08/09/2016 None Full Exam - General 1994 Lymphatic neck nodes Overall: posterior cervical chain benign 08/09/2016 None Full Exam - General 1994 Integument inspection of skin Location: chest 08/09/2016 patch under breasts bilaterally -- Improved Full Exam - General 1994 Neurologic mental status Overall: alert 08/09/2016 None Full Exam - General 1994 Neurologic mental status Overall: oriented 08/09/2016 None Full Exam - General 1994 Neurologic cranial nerves Overall: crainial nerves 2 - 12 grossly intact 08/09/2016 None Full Exam - General 1994 Psychiatric orientation/consciousness Overall: oriented to person, place and time 08/09/2016 None Full Exam - General 1994 Psychiatric orientation/consciousness Oriented to person: yes 08/09/2016 None Full Exam - General 1994 Psychiatric orientation/consciousness Oriented to place: yes 08/09/2016 None Full Exam - General 1994 Psychiatric orientation/consciousness Oriented to time: yes 08/09/2016 None Full Exam - General 1994 Psychiatric orientation/consciousness Level of consciousness: alert 08/09/2016 None Full Exam - General 1994 Psychiatric mood and affect Overall: normal mood and affect 08/09/2016 None Full Exam - General 1994 Psychiatric appearance Overall: well-groomed, good eye contact 08/09/2016 None Full Exam - General 1994 Constitutional general appearance Overall: well developed 07/26/2016 None Full Exam - General 1994 Constitutional general appearance Overall: in no acute distress 07/26/2016 None Full Exam - General 1994 Constitutional general appearance Overall: well nourished 07/26/2016 None Full Exam - General 1994 Eyes conjunctiva /eyelids Overall: conjunctiva clear 07/26/2016 None Full Exam - General 1994 Eyes pupils and irises Overall: pupils equal, round, reactive to light and accomodation 07/26/2016 None Full Exam - General 1994 Ears/Nose/Throat otoscopic exam Overall: external auditory canals clear 07/26/2016 None Full Exam - General 1994 Ears/Nose/Throat otoscopic exam Overall: tympanic membranes clear 07/26/2016 None Full Exam - General 1994 Ears/Nose/Throat lips/teeth/gingiva Overall: benign lips 07/26/2016 None Full Exam - General 1994 Ears/Nose/Throat oral cavity/pharynx/larynx Overall: oral mucosa clear 07/26/2016 None Full Exam - General 1994 Ears/Nose/Throat oral cavity/pharynx/larynx Overall: oropharyngeal mucosa clear 07/26/2016 None Full Exam - General 1994 Respiratory auscultation Diffuse: diminished 07/26/2016 None Full Exam - General 1994 Respiratory respiratory effort/rhythm Overall: no retractions 07/26/2016 None Full Exam - General 1994 Respiratory respiratory effort/rhythm Overall: normal rate 07/26/2016 None Full Exam - General 1994 Cardiovascular extremities Edema present: pitting 07/26/2016 None Full Exam - General 1994 Cardiovascular extremities Edema present: severity 1+ - 4 +: 2+ 07/26/2016 None Full Exam - General 1994 Cardiovascular auscultation of heart Overall: normal heart sounds 07/26/2016 None Full Exam - General 1994 Cardiovascular auscultation of heart Overall: no murmurs 07/26/2016 None Full Exam - General 1994 Cardiovascular auscultation of heart Rate: regular rate 07/26/2016 None Full Exam - General 1994 Abdomen abdominal exam Contour: rounded 07/26/2016 None Full Exam - General 1994 Lymphatic neck nodes Overall: anterior cervical chain benign 07/26/2016 None Full Exam - General 1994 Lymphatic neck nodes Overall: posterior cervical chain benign 07/26/2016 None Full Exam - General 1994 Neurologic mental status Overall: alert 07/26/2016 None Full Exam - General 1994 Neurologic mental status Overall: oriented 07/26/2016 None Full Exam - General 1994 Neurologic cranial nerves Overall: crainial nerves 2 - 12 grossly intact 07/26/2016 None Full Exam - General 1994 Psychiatric orientation/consciousness Overall: oriented to person, place and time 07/26/2016 None Full Exam - General 1994 Psychiatric orientation/consciousness Oriented to person: yes 07/26/2016 None Full Exam - General 1994 Psychiatric orientation/consciousness Oriented to place: yes 07/26/2016 None Full Exam - General 1994 Psychiatric orientation/consciousness Oriented to time: yes 07/26/2016 None Full Exam - General 1994 Psychiatric orientation/consciousness Level of consciousness: alert 07/26/2016 None Full Exam - General 1994 Psychiatric mood and affect Overall: normal mood and affect 07/26/2016 None Full Exam - General 1994 Psychiatric appearance Overall: well-groomed, good eye contact 07/26/2016 None Full Exam - General 1994 Integument inspection of skin Location: chest 07/26/2016 patch under breasts bilaterally Full Exam - General 1994 Constitutional general appearance Overall: well developed 05/24/2016 None Full Exam - General 1994 Constitutional general appearance Overall: in no acute distress 05/24/2016 None Full Exam - General 1994 Constitutional general appearance Overall: well nourished 05/24/2016 None Full Exam - General 1994 Eyes conjunctiva /eyelids Overall: conjunctiva clear 05/24/2016 None Full Exam - General 1994 Eyes pupils and irises Overall: pupils equal, round, reactive to light and accomodation 05/24/2016 None Full Exam - General 1994 Ears/Nose/Throat otoscopic exam Overall: external auditory canals clear 05/24/2016 None Full Exam - General 1994 Ears/Nose/Throat otoscopic exam Overall: tympanic membranes clear 05/24/2016 None Full Exam - General 1994 Ears/Nose/Throat lips/teeth/gingiva Overall: benign lips 05/24/2016 None Full Exam - General 1994 Ears/Nose/Throat oral cavity/pharynx/larynx Overall: oral mucosa clear 05/24/2016 None Full Exam - General 1994 Ears/Nose/Throat oral cavity/pharynx/larynx Overall: oropharyngeal mucosa clear 05/24/2016 None Full Exam - General 1994 Respiratory auscultation Diffuse: diminished 05/24/2016 None Full Exam - General 1994 Respiratory respiratory effort/rhythm Overall: no retractions 05/24/2016 None Full Exam - General 1994 Respiratory respiratory effort/rhythm Overall: normal rate 05/24/2016 None Full Exam - General 1994 Cardiovascular extremities Edema present: pitting 05/24/2016 None Full Exam - General 1994 Cardiovascular extremities Edema present: severity 1+ - 4 +: 2+ 05/24/2016 None Full Exam - General 1994 Cardiovascular auscultation of heart Overall: normal heart sounds 05/24/2016 None Full Exam - General 1994 Cardiovascular auscultation of heart Overall: no murmurs 05/24/2016 None Full Exam - General 1994 Cardiovascular auscultation of heart Rate: regular rate 05/24/2016 None Full Exam - General 1994 Abdomen abdominal exam Contour: rounded 05/24/2016 None Full Exam - General 1994 Lymphatic neck nodes Overall: anterior cervical chain benign 05/24/2016 None Full Exam - General 1994 Lymphatic neck nodes Overall: posterior cervical chain benign 05/24/2016 None Full Exam - General 1994 Neurologic mental status Overall: alert 05/24/2016 None Full Exam - General 1994 Neurologic mental status Overall: oriented 05/24/2016 None Full Exam - General 1994 Neurologic cranial nerves Overall: crainial nerves 2 - 12 grossly intact 05/24/2016 None Full Exam - General 1994 Psychiatric orientation/consciousness Overall: oriented to person, place and time 05/24/2016 None Full Exam - General 1994 Psychiatric orientation/consciousness Oriented to person: yes 05/24/2016 None Full Exam - General 1994 Psychiatric orientation/consciousness Oriented to place: yes 05/24/2016 None Full Exam - General 1994 Psychiatric orientation/consciousness Oriented to time: yes 05/24/2016 None Full Exam - General 1994 Psychiatric orientation/consciousness Level of consciousness: alert 05/24/2016 None Full Exam - General 1994 Psychiatric mood and affect Overall: normal mood and affect 05/24/2016 None Full Exam - General 1994 Psychiatric appearance Overall: well-groomed, good eye contact 05/24/2016 None Full Exam - General 1994 Constitutional general appearance Overall: well developed 04/19/2016 None Full Exam - General 1994 Constitutional general appearance Overall: in no acute distress 04/19/2016 None Full Exam - General 1994 Constitutional general appearance Overall: well nourished 04/19/2016 None Full Exam - General 1994 Eyes conjunctiva /eyelids Overall: conjunctiva clear 04/19/2016 None Full Exam - General 1994 Eyes pupils and irises Overall: pupils equal, round, reactive to light and accomodation 04/19/2016 None Full Exam - General 1994 Ears/Nose/Throat otoscopic exam Overall: external auditory canals clear 04/19/2016 None Full Exam - General 1994 Ears/Nose/Throat otoscopic exam Overall: tympanic membranes clear 04/19/2016 None Full Exam - General 1994 Ears/Nose/Throat lips/teeth/gingiva Overall: benign lips 04/19/2016 None Full Exam - General 1994 Ears/Nose/Throat oral cavity/pharynx/larynx Overall: oral mucosa clear 04/19/2016 None Full Exam - General 1994 Ears/Nose/Throat oral cavity/pharynx/larynx Overall: oropharyngeal mucosa clear 04/19/2016 None Full Exam - General 1994 Respiratory auscultation Diffuse: diminished 04/19/2016 None Full Exam - General 1994 Respiratory respiratory effort/rhythm Overall: no retractions 04/19/2016 None Full Exam - General 1994 Respiratory respiratory effort/rhythm Overall: normal rate 04/19/2016 None Full Exam - General 1994 Cardiovascular extremities Edema present: pitting 04/19/2016 None Full Exam - General 1994 Cardiovascular extremities Edema present: severity 1+ - 4 +: 2+ 04/19/2016 None Full Exam - General 1994 Cardiovascular auscultation of heart Overall: normal heart sounds 04/19/2016 None Full Exam - General 1994 Cardiovascular auscultation of heart Overall: no murmurs 04/19/2016 None Full Exam - General 1994 Cardiovascular auscultation of heart Rate: regular rate 04/19/2016 None Full Exam - General 1994 Abdomen abdominal exam Contour: rounded 04/19/2016 None Full Exam - General 1994 Lymphatic neck nodes Overall: anterior cervical chain benign 04/19/2016 None Full Exam - General 1994 Lymphatic neck nodes Overall: posterior cervical chain benign 04/19/2016 None Full Exam - General 1994 Neurologic mental status Overall: alert 04/19/2016 None Full Exam - General 1994 Neurologic mental status Overall: oriented 04/19/2016 None Full Exam - General 1994 Neurologic cranial nerves Overall: crainial nerves 2 - 12 grossly intact 04/19/2016 None Full Exam - General 1994 Psychiatric orientation/consciousness Overall: oriented to person, place and time 04/19/2016 None Full Exam - General 1994 Psychiatric orientation/consciousness Oriented to person: yes 04/19/2016 None Full Exam - General 1994 Psychiatric orientation/consciousness Oriented to place: yes 04/19/2016 None Full Exam - General 1994 Psychiatric orientation/consciousness Oriented to time: yes 04/19/2016 None Full Exam - General 1994 Psychiatric orientation/consciousness Level of consciousness: alert 04/19/2016 None Full Exam - General 1994 Psychiatric mood and affect Overall: normal mood and affect 04/19/2016 None Full Exam - General 1994 Psychiatric appearance Overall: well-groomed, good eye contact 04/19/2016 None Full Exam - General 1994 Genitourinary uterus Overall: surgically absent 04/19/2016 None Full Exam - General 1994 Genitourinary cervix Overall: surgically absent 04/19/2016 None Full Exam - General 1994 Genitourinary labia and vagina Overall: no lesions 04/19/2016 no discharge, lesions noted in vagina but dried cream noted inside labia and vaginal canal Full Exam - General 1994 Genitourinary adnexa/parametria Overall: surgically absent 04/19/2016 None Full Exam - General 1994 Genitourinary urethra Overall: no masses 04/19/2016 None Full Exam - General 1994 Constitutional general appearance Overall: well developed 04/11/2016 None Full Exam - General 1994 Constitutional general appearance Overall: in no acute distress 04/11/2016 None Full Exam - General 1994 Constitutional general appearance Overall: well nourished 04/11/2016 None Full Exam - General 1994 Eyes conjunctiva /eyelids Overall: conjunctiva clear 04/11/2016 None Full Exam - General 1994 Eyes pupils and irises Overall: pupils equal, round, reactive to light and accomodation 04/11/2016 None Full Exam - General 1994 Ears/Nose/Throat otoscopic exam Overall: external auditory canals clear 04/11/2016 None Full Exam - General 1994 Ears/Nose/Throat otoscopic exam Overall: tympanic membranes clear 04/11/2016 None Full Exam - General 1994 Ears/Nose/Throat lips/teeth/gingiva Overall: benign lips 04/11/2016 None Full Exam - General 1994 Ears/Nose/Throat oral cavity/pharynx/larynx Overall: oral mucosa clear 04/11/2016 None Full Exam - General 1994 Ears/Nose/Throat oral cavity/pharynx/larynx Overall: oropharyngeal mucosa clear 04/11/2016 None Full Exam - General 1994 Respiratory auscultation Diffuse: diminished 04/11/2016 None Full Exam - General 1994 Respiratory respiratory effort/rhythm Overall: no retractions 04/11/2016 None Full Exam - General 1994 Respiratory respiratory effort/rhythm Overall: normal rate 04/11/2016 None Full Exam - General 1994 Cardiovascular extremities Edema present: pitting 04/11/2016 None Full Exam - General 1994 Cardiovascular extremities Edema present: severity 1+ - 4 +: 2+ 04/11/2016 None Full Exam - General 1994 Cardiovascular auscultation of heart Overall: normal heart sounds 04/11/2016 None Full Exam - General 1994 Cardiovascular auscultation of heart Overall: no murmurs 04/11/2016 None Full Exam - General 1994 Cardiovascular auscultation of heart Rate: regular rate 04/11/2016 None Full Exam - General 1994 Abdomen abdominal exam Contour: rounded 04/11/2016 None Full Exam - General 1994 Lymphatic neck nodes Overall: anterior cervical chain benign 04/11/2016 None Full Exam - General 1994 Lymphatic neck nodes Overall: posterior cervical chain benign 04/11/2016 None Full Exam - General 1994 Neurologic mental status Overall: alert 04/11/2016 None Full Exam - General 1994 Neurologic mental status Overall: oriented 04/11/2016 None Full Exam - General 1994 Neurologic cranial nerves Overall: crainial nerves 2 - 12 grossly intact 04/11/2016 None Full Exam - General 1994 Psychiatric orientation/consciousness Overall: oriented to person, place and time 04/11/2016 None Full Exam - General 1994 Psychiatric orientation/consciousness Oriented to person: yes 04/11/2016 None Full Exam - General 1994 Psychiatric orientation/consciousness Oriented to place: yes 04/11/2016 None Full Exam - General 1994 Psychiatric orientation/consciousness Oriented to time: yes 04/11/2016 None Full Exam - General 1994 Psychiatric orientation/consciousness Level of consciousness: alert 04/11/2016 None Full Exam - General 1994 Psychiatric mood and affect Overall: normal mood and affect 04/11/2016 None Full Exam - General 1994 Psychiatric appearance Overall: well-groomed, good eye contact 04/11/2016 None Full Exam - General 1994 Constitutional general appearance Overall: well developed 03/21/2016 None Full Exam - General 1994 Constitutional general appearance Overall: in no acute distress 03/21/2016 None Full Exam - General 1994 Constitutional general appearance Overall: well nourished 03/21/2016 None Full Exam - General 1994 Eyes conjunctiva /eyelids Overall: conjunctiva clear 03/21/2016 None Full Exam - General 1994 Eyes pupils and irises Overall: pupils equal, round, reactive to light and accomodation 03/21/2016 None Full Exam - General 1994 Ears/Nose/Throat otoscopic exam Overall: external auditory canals clear 03/21/2016 None Full Exam - General 1994 Ears/Nose/Throat otoscopic exam Overall: tympanic membranes clear 03/21/2016 None Full Exam - General 1994 Ears/Nose/Throat lips/teeth/gingiva Overall: benign lips 03/21/2016 None Full Exam - General 1994 Ears/Nose/Throat oral cavity/pharynx/larynx Overall: oral mucosa clear 03/21/2016 None Full Exam - General 1994 Ears/Nose/Throat oral cavity/pharynx/larynx Overall: oropharyngeal mucosa clear 03/21/2016 None Full Exam - General 1994 Respiratory auscultation Diffuse: diminished 03/21/2016 None Full Exam - General 1994 Respiratory respiratory effort/rhythm Overall: no retractions 03/21/2016 None Full Exam - General 1994 Respiratory respiratory effort/rhythm Overall: normal rate 03/21/2016 None Full Exam - General 1994 Cardiovascular extremities Edema present: pitting 03/21/2016 None Full Exam - General 1994 Cardiovascular extremities Edema present: severity 1+ - 4 +: 2+ 03/21/2016 None Full Exam - General 1994 Cardiovascular auscultation of heart Overall: normal heart sounds 03/21/2016 None Full Exam - General 1994 Cardiovascular auscultation of heart Overall: no murmurs 03/21/2016 None Full Exam - General 1994 Cardiovascular auscultation of heart Rate: regular rate 03/21/2016 None Full Exam - General 1994 Abdomen abdominal exam Contour: rounded 03/21/2016 None Full Exam - General 1994 Lymphatic neck nodes Overall: anterior cervical chain benign 03/21/2016 None Full Exam - General 1994 Lymphatic neck nodes Overall: posterior cervical chain benign 03/21/2016 None Full Exam - General 1994 Neurologic mental status Overall: alert 03/21/2016 None Full Exam - General 1994 Neurologic mental status Overall: oriented 03/21/2016 None Full Exam - General 1994 Neurologic cranial nerves Overall: crainial nerves 2 - 12 grossly intact 03/21/2016 None Full Exam - General 1994 Psychiatric orientation/consciousness Overall: oriented to person, place and time 03/21/2016 None Full Exam - General 1994 Psychiatric orientation/consciousness Oriented to person: yes 03/21/2016 None Full Exam - General 1994 Psychiatric orientation/consciousness Oriented to place: yes 03/21/2016 None Full Exam - General 1994 Psychiatric orientation/consciousness Oriented to time: yes 03/21/2016 None Full Exam - General 1994 Psychiatric orientation/consciousness Level of consciousness: alert 03/21/2016 None Full Exam - General 1994 Psychiatric mood and affect Overall: normal mood and affect 03/21/2016 None Full Exam - General 1994 Psychiatric appearance Overall: well-groomed, good eye contact 03/21/2016 None Full Exam - General 1994 Constitutional general appearance Overall: well developed 03/11/2016 None Full Exam - General 1994 Constitutional general appearance Overall: in no acute distress 03/11/2016 None Full Exam - General 1994 Constitutional general appearance Overall: well nourished 03/11/2016 None Full Exam - General 1994 Eyes conjunctiva /eyelids Overall: conjunctiva clear 03/11/2016 None Full Exam - General 1994 Eyes pupils and irises Overall: pupils equal, round, reactive to light and accomodation 03/11/2016 None Full Exam - General 1994 Ears/Nose/Throat otoscopic exam Overall: external auditory canals clear 03/11/2016 None Full Exam - General 1994 Ears/Nose/Throat otoscopic exam Overall: tympanic membranes clear 03/11/2016 None Full Exam - General 1994 Ears/Nose/Throat lips/teeth/gingiva Overall: benign lips 03/11/2016 None Full Exam - General 1994 Ears/Nose/Throat oral cavity/pharynx/larynx Overall: oral mucosa clear 03/11/2016 None Full Exam - General 1994 Ears/Nose/Throat oral cavity/pharynx/larynx Overall: oropharyngeal mucosa clear 03/11/2016 None Full Exam - General 1994 Respiratory auscultation Diffuse: diminished 03/11/2016 None Full Exam - General 1994 Respiratory respiratory effort/rhythm Overall: no retractions 03/11/2016 None Full Exam - General 1994 Respiratory respiratory effort/rhythm Overall: normal rate 03/11/2016 None Full Exam - General 1994 Cardiovascular extremities Edema present: pitting 03/11/2016 None Full Exam - General 1994 Cardiovascular extremities Edema present: severity 1+ - 4 +: 2+ 03/11/2016 None Full Exam - General 1994 Cardiovascular auscultation of heart Overall: normal heart sounds 03/11/2016 None Full Exam - General 1994 Cardiovascular auscultation of heart Overall: no murmurs 03/11/2016 None Full Exam - General 1994 Abdomen abdominal exam Contour: rounded 03/11/2016 None Full Exam - General 1994 Lymphatic neck nodes Overall: anterior cervical chain benign 03/11/2016 None Full Exam - General 1994 Lymphatic neck nodes Overall: posterior cervical chain benign 03/11/2016 None Full Exam - General 1994 Neurologic mental status Overall: alert 03/11/2016 None Full Exam - General 1994 Neurologic mental status Overall: oriented 03/11/2016 None Full Exam - General 1994 Neurologic cranial nerves Overall: crainial nerves 2 - 12 grossly intact 03/11/2016 None Full Exam - General 1994 Psychiatric orientation/consciousness Overall: oriented to person, place and time 03/11/2016 None Full Exam - General 1994 Psychiatric orientation/consciousness Oriented to person: yes 03/11/2016 None Full Exam - General 1994 Psychiatric orientation/consciousness Oriented to place: yes 03/11/2016 None Full Exam - General 1994 Psychiatric orientation/consciousness Oriented to time: yes 03/11/2016 None Full Exam - General 1994 Psychiatric orientation/consciousness Level of consciousness: alert 03/11/2016 None Full Exam - General 1994 Psychiatric mood and affect Overall: normal mood and affect 03/11/2016 None Full Exam - General 1994 Psychiatric appearance Overall: well-groomed, good eye contact 03/11/2016 None Full Exam - General 1994 Cardiovascular auscultation of heart Rate: regular rate 03/11/2016 None Full Exam - General 1994 Integument inspection of skin Location: right leg 03/11/2016 None Full Exam - General 1994 Integument inspection of skin Dermatitis: erythema 03/11/2016 None Full Exam - General 1994 Constitutional general appearance Overall: well developed 02/26/2016 None Full Exam - General 1994 Constitutional general appearance Overall: in no acute distress 02/26/2016 None Full Exam - General 1994 Constitutional general appearance Overall: well nourished 02/26/2016 None Full Exam - General 1994 Eyes conjunctiva /eyelids Overall: conjunctiva clear 02/26/2016 None Full Exam - General 1994 Eyes pupils and irises Overall: pupils equal, round, reactive to light and accomodation 02/26/2016 None Full Exam - General 1994 Ears/Nose/Throat otoscopic exam Overall: external auditory canals clear 02/26/2016 None Full Exam - General 1994 Ears/Nose/Throat otoscopic exam Overall: tympanic membranes clear 02/26/2016 None Full Exam - General 1994 Ears/Nose/Throat lips/teeth/gingiva Overall: benign lips 02/26/2016 None Full Exam - General 1994 Ears/Nose/Throat oral cavity/pharynx/larynx Overall: oral mucosa clear 02/26/2016 None Full Exam - General 1994 Ears/Nose/Throat oral cavity/pharynx/larynx Overall: oropharyngeal mucosa clear 02/26/2016 None Full Exam - General 1994 Respiratory auscultation Diffuse: diminished 02/26/2016 None Full Exam - General 1994 Respiratory respiratory effort/rhythm Overall: no retractions 02/26/2016 None Full Exam - General 1994 Respiratory respiratory effort/rhythm Overall: normal rate 02/26/2016 None Full Exam - General 1994 Cardiovascular extremities Edema present: pitting 02/26/2016 None Full Exam - General 1994 Cardiovascular auscultation of heart Overall: normal heart sounds 02/26/2016 None Full Exam - General 1994 Cardiovascular auscultation of heart Overall: no murmurs 02/26/2016 None Full Exam - General 1994 Cardiovascular auscultation of heart Rate: bradycardia 02/26/2016 None Full Exam - General 1994 Abdomen abdominal exam Contour: rounded 02/26/2016 None Full Exam - General 1994 Lymphatic neck nodes Overall: anterior cervical chain benign 02/26/2016 None Full Exam - General 1994 Lymphatic neck nodes Overall: posterior cervical chain benign 02/26/2016 None Full Exam - General 1994 Integument inspection of skin Overall: few scattered moles, no gross abnormalities 02/26/2016 None Full Exam - General 1994 Neurologic mental status Overall: alert 02/26/2016 None Full Exam - General 1994 Neurologic mental status Overall: oriented 02/26/2016 None Full Exam - General 1994 Neurologic cranial nerves Overall: crainial nerves 2 - 12 grossly intact 02/26/2016 None Full Exam - General 1994 Psychiatric orientation/consciousness Overall: oriented to person, place and time 02/26/2016 None Full Exam - General 1994 Psychiatric orientation/consciousness Oriented to person: yes 02/26/2016 None Full Exam - General 1994 Psychiatric orientation/consciousness Oriented to place: yes 02/26/2016 None Full Exam - General 1994 Psychiatric orientation/consciousness Oriented to time: yes 02/26/2016 None Full Exam - General 1994 Psychiatric orientation/consciousness Level of consciousness: alert 02/26/2016 None Full Exam - General 1994 Psychiatric mood and affect Overall: normal mood and affect 02/26/2016 None Full Exam - General 1994 Psychiatric appearance Overall: well-groomed, good eye contact 02/26/2016 None Full Exam - General 1994 Cardiovascular extremities Edema present: severity 1+ - 4 +: 2+ 02/26/2016 None Full Exam - General 1994 Constitutional general appearance Overall: well developed 02/02/2016 None Full Exam - General 1994 Constitutional general appearance Overall: in no acute distress 02/02/2016 None Full Exam - General 1994 Constitutional general appearance Overall: well nourished 02/02/2016 None Full Exam - General 1994 Eyes conjunctiva /eyelids Overall: conjunctiva clear 02/02/2016 None Full Exam - General 1994 Eyes pupils and irises Overall: pupils equal, round, reactive to light and accomodation 02/02/2016 None Full Exam - General 1994 Ears/Nose/Throat otoscopic exam Overall: external auditory canals clear 02/02/2016 None Full Exam - General 1994 Ears/Nose/Throat otoscopic exam Overall: tympanic membranes clear 02/02/2016 None Full Exam - General 1994 Ears/Nose/Throat lips/teeth/gingiva Overall: benign lips 02/02/2016 None Full Exam - General 1994 Ears/Nose/Throat oral cavity/pharynx/larynx Overall: oral mucosa clear 02/02/2016 None Full Exam - General 1994 Ears/Nose/Throat oral cavity/pharynx/larynx Overall: oropharyngeal mucosa clear 02/02/2016 None Full Exam - General 1994 Respiratory auscultation Diffuse: diminished 02/02/2016 None Full Exam - General 1994 Respiratory respiratory effort/rhythm Overall: no retractions 02/02/2016 None Full Exam - General 1994 Respiratory respiratory effort/rhythm Overall: normal rate 02/02/2016 None Full Exam - General 1994 Cardiovascular extremities Edema present: pitting 02/02/2016 None Full Exam - General 1994 Cardiovascular extremities Edema present: severity 1+ - 4 +: 1+ 02/02/2016 left greater than right Full Exam - General 1994 Cardiovascular auscultation of heart Overall: normal heart sounds 02/02/2016 None Full Exam - General 1994 Cardiovascular auscultation of heart Overall: no murmurs 02/02/2016 None Full Exam - General 1994 Abdomen abdominal exam Contour: rounded 02/02/2016 None Full Exam - General 1994 Lymphatic neck nodes Overall: anterior cervical chain benign 02/02/2016 None Full Exam - General 1994 Lymphatic neck nodes Overall: posterior cervical chain benign 02/02/2016 None Full Exam - General 1994 Musculoskeletal spine, ribs and pelvis Ribs: normal chest expansion 02/02/2016 tender along left ribs Full Exam - General 1994 Integument inspection of skin Overall: few scattered moles, no gross abnormalities 02/02/2016 None Full Exam - General 1994 Neurologic mental status Overall: alert 02/02/2016 None Full Exam - General 1994 Neurologic mental status Overall: oriented 02/02/2016 None Full Exam - General 1994 Neurologic cranial nerves Overall: crainial nerves 2 - 12 grossly intact 02/02/2016 None Full Exam - General 1994 Psychiatric orientation/consciousness Overall: oriented to person, place and time 02/02/2016 None Full Exam - General 1994 Psychiatric orientation/consciousness Oriented to person: yes 02/02/2016 None Full Exam - General 1994 Psychiatric orientation/consciousness Oriented to place: yes 02/02/2016 None Full Exam - General 1994 Psychiatric orientation/consciousness Oriented to time: yes 02/02/2016 None Full Exam - General 1994 Psychiatric orientation/consciousness Level of consciousness: alert 02/02/2016 None Full Exam - General 1994 Psychiatric mood and affect Overall: normal mood and affect 02/02/2016 None Full Exam - General 1994 Psychiatric appearance Overall: well-groomed, good eye contact 02/02/2016 None Full Exam - General 1994 Cardiovascular auscultation of heart Rate: bradycardia 02/02/2016 None Full Exam - General 1994 Constitutional general appearance Overall: well developed 12/17/2015 None Full Exam - General 1994 Constitutional general appearance Overall: in no acute distress 12/17/2015 None Full Exam - General 1994 Constitutional general appearance Overall: well nourished 12/17/2015 None Full Exam - General 1994 Eyes conjunctiva /eyelids Overall: conjunctiva clear 12/17/2015 None Full Exam - General 1994 Eyes pupils and irises Overall: pupils equal, round, reactive to light and accomodation 12/17/2015 None Full Exam - General 1994 Ears/Nose/Throat otoscopic exam Overall: external auditory canals clear 12/17/2015 None Full Exam - General 1994 Ears/Nose/Throat otoscopic exam Overall: tympanic membranes clear 12/17/2015 None Full Exam - General 1994 Ears/Nose/Throat lips/teeth/gingiva Overall: benign lips 12/17/2015 None Full Exam - General 1994 Ears/Nose/Throat oral cavity/pharynx/larynx Overall: oral mucosa clear 12/17/2015 None Full Exam - General 1994 Ears/Nose/Throat oral cavity/pharynx/larynx Overall: oropharyngeal mucosa clear 12/17/2015 None Full Exam - General 1994 Respiratory auscultation Diffuse: diminished 12/17/2015 None Full Exam - General 1994 Respiratory respiratory effort/rhythm Overall: no retractions 12/17/2015 None Full Exam - General 1994 Respiratory respiratory effort/rhythm Overall: normal rate 12/17/2015 None Full Exam - General 1994 Cardiovascular extremities Edema present: pitting 12/17/2015 None Full Exam - General 1994 Cardiovascular extremities Edema present: severity 1+ - 4 +: 1+ 12/17/2015 left greater than right Full Exam - General 1994 Cardiovascular auscultation of heart Overall: normal heart sounds 12/17/2015 None Full Exam - General 1994 Cardiovascular auscultation of heart Overall: no murmurs 12/17/2015 None Full Exam - General 1994 Cardiovascular auscultation of heart Rate: tachycardia 12/17/2015 None Full Exam - General 1994 Abdomen abdominal exam Contour: rounded 12/17/2015 None Full Exam - General 1994 Lymphatic neck nodes Overall: anterior cervical chain benign 12/17/2015 None Full Exam - General 1994 Lymphatic neck nodes Overall: posterior cervical chain benign 12/17/2015 None Full Exam - General 1994 Musculoskeletal spine, ribs and pelvis Ribs: normal chest expansion 12/17/2015 tender along left ribs Full Exam - General 1994 Integument inspection of skin Overall: few scattered moles, no gross abnormalities 12/17/2015 None Full Exam - General 1994 Neurologic mental status Overall: alert 12/17/2015 None Full Exam - General 1994 Neurologic mental status Overall: oriented 12/17/2015 None Full Exam - General 1994 Neurologic cranial nerves Overall: crainial nerves 2 - 12 grossly intact 12/17/2015 None Full Exam - General 1994 Psychiatric orientation/consciousness Overall: oriented to person, place and time 12/17/2015 None Full Exam - General 1994 Psychiatric orientation/consciousness Oriented to person: yes 12/17/2015 None Full Exam - General 1994 Psychiatric orientation/consciousness Oriented to place: yes 12/17/2015 None Full Exam - General 1994 Psychiatric orientation/consciousness Oriented to time: yes 12/17/2015 None Full Exam - General 1994 Psychiatric orientation/consciousness Level of consciousness: alert 12/17/2015 None Full Exam - General 1994 Psychiatric mood and affect Overall: normal mood and affect 12/17/2015 None Full Exam - General 1994 Psychiatric appearance Overall: well-groomed, good eye contact 12/17/2015 None Full Exam - General 1994 Constitutional general appearance Overall: well developed 12/08/2015 None Full Exam - General 1994 Constitutional general appearance Overall: in no acute distress 12/08/2015 None Full Exam - General 1994 Constitutional general appearance Overall: well nourished 12/08/2015 None Full Exam - General 1994 Eyes pupils and irises Overall: pupils equal, round, reactive to light and accomodation 12/08/2015 None Full Exam - General 1994 Ears/Nose/Throat otoscopic exam Overall: external auditory canals clear 12/08/2015 None Full Exam - General 1994 Ears/Nose/Throat otoscopic exam Overall: tympanic membranes clear 12/08/2015 None Full Exam - General 1994 Ears/Nose/Throat lips/teeth/gingiva Overall: benign lips 12/08/2015 None Full Exam - General 1994 Ears/Nose/Throat oral cavity/pharynx/larynx Overall: oral mucosa clear 12/08/2015 None Full Exam - General 1994 Ears/Nose/Throat oral cavity/pharynx/larynx Overall: oropharyngeal mucosa clear 12/08/2015 None Full Exam - General 1994 Respiratory auscultation Diffuse: diminished 12/08/2015 None Full Exam - General 1994 Respiratory respiratory effort/rhythm Overall: no retractions 12/08/2015 None Full Exam - General 1994 Respiratory respiratory effort/rhythm Overall: normal rate 12/08/2015 None Full Exam - General 1994 Cardiovascular extremities Edema present: pitting 12/08/2015 None Full Exam - General 1994 Cardiovascular extremities Edema present: severity 1+ - 4 +: 1+ 12/08/2015 left greater than right Full Exam - General 1994 Cardiovascular auscultation of heart Overall: normal heart sounds 12/08/2015 None Full Exam - General 1994 Cardiovascular auscultation of heart Overall: no murmurs 12/08/2015 None Full Exam - General 1994 Cardiovascular auscultation of heart Rate: tachycardia 12/08/2015 None Full Exam - General 1994 Abdomen abdominal exam Contour: rounded 12/08/2015 None Full Exam - General 1994 Lymphatic neck nodes Overall: anterior cervical chain benign 12/08/2015 None Full Exam - General 1994 Lymphatic neck nodes Overall: posterior cervical chain benign 12/08/2015 None Full Exam - General 1994 Neurologic mental status Overall: alert 12/08/2015 None Full Exam - General 1994 Neurologic mental status Overall: oriented 12/08/2015 None Full Exam - General 1994 Neurologic cranial nerves Overall: crainial nerves 2 - 12 grossly intact 12/08/2015 None Full Exam - General 1994 Psychiatric orientation/consciousness Overall: oriented to person, place and time 12/08/2015 None Full Exam - General 1994 Psychiatric orientation/consciousness Oriented to person: yes 12/08/2015 None Full Exam - General 1994 Psychiatric orientation/consciousness Oriented to place: yes 12/08/2015 None Full Exam - General 1994 Psychiatric orientation/consciousness Oriented to time: yes 12/08/2015 None Full Exam - General 1994 Psychiatric orientation/consciousness Level of consciousness: alert 12/08/2015 None Full Exam - General 1994 Psychiatric mood and affect Overall: normal mood and affect 12/08/2015 None Full Exam - General 1994 Psychiatric appearance Overall: well-groomed, good eye contact 12/08/2015 None Full Exam - General 1994 Eyes conjunctiva /eyelids Overall: conjunctiva clear 12/08/2015 None Full Exam - General 1994 Constitutional general appearance Evidence of Distress: tearful 12/08/2015 None Full Exam - General 1994 Integument inspection of skin Overall: few scattered moles, no gross abnormalities 12/08/2015 None Full Exam - General 1994 Musculoskeletal spine, ribs and pelvis Ribs: normal chest expansion 12/08/2015 tender along left ribs Full Exam - General 1994 Constitutional general appearance Overall: well developed 11/27/2015 None Full Exam - General 1994 Constitutional general appearance Overall: in no acute distress 11/27/2015 None Full Exam - General 1994 Constitutional general appearance Overall: well nourished 11/27/2015 None Full Exam - General 1994 Eyes pupils and irises Overall: pupils equal, round, reactive to light and accomodation 11/27/2015 None Full Exam - General 1994 Ears/Nose/Throat otoscopic exam Overall: external auditory canals clear 11/27/2015 None Full Exam - General 1994 Ears/Nose/Throat otoscopic exam Overall: tympanic membranes clear 11/27/2015 None Full Exam - General 1994 Ears/Nose/Throat lips/teeth/gingiva Overall: benign lips 11/27/2015 None Full Exam - General 1994 Ears/Nose/Throat oral cavity/pharynx/larynx Overall: oral mucosa clear 11/27/2015 None Full Exam - General 1994 Ears/Nose/Throat oral cavity/pharynx/larynx Overall: oropharyngeal mucosa clear 11/27/2015 None Full Exam - General 1994 Respiratory auscultation Diffuse: diminished 11/27/2015 None Full Exam - General 1994 Respiratory respiratory effort/rhythm Overall: no retractions 11/27/2015 None Full Exam - General 1994 Respiratory respiratory effort/rhythm Overall: normal rate 11/27/2015 None Full Exam - General 1994 Cardiovascular extremities Edema present: pitting 11/27/2015 None Full Exam - General 1994 Cardiovascular extremities Edema present: severity 1+ - 4 +: 1+ 11/27/2015 left greater than right Full Exam - General 1994 Cardiovascular auscultation of heart Overall: normal heart sounds 11/27/2015 None Full Exam - General 1994 Cardiovascular auscultation of heart Overall: no murmurs 11/27/2015 None Full Exam - General 1994 Abdomen abdominal exam Contour: rounded 11/27/2015 None Full Exam - General 1994 Lymphatic neck nodes Overall: anterior cervical chain benign 11/27/2015 None Full Exam - General 1994 Lymphatic neck nodes Overall: posterior cervical chain benign 11/27/2015 None Full Exam - General 1994 Neurologic mental status Overall: alert 11/27/2015 None Full Exam - General 1994 Neurologic mental status Overall: oriented 11/27/2015 None Full Exam - General 1994 Neurologic cranial nerves Overall: crainial nerves 2 - 12 grossly intact 11/27/2015 None Full Exam - General 1994 Psychiatric orientation/consciousness Overall: oriented to person, place and time 11/27/2015 None Full Exam - General 1994 Psychiatric orientation/consciousness Oriented to person: yes 11/27/2015 None Full Exam - General 1994 Psychiatric orientation/consciousness Oriented to place: yes 11/27/2015 None Full Exam - General 1994 Psychiatric orientation/consciousness Oriented to time: yes 11/27/2015 None Full Exam - General 1994 Psychiatric orientation/consciousness Level of consciousness: alert 11/27/2015 None Full Exam - General 1994 Psychiatric mood and affect Overall: normal mood and affect 11/27/2015 None Full Exam - General 1994 Psychiatric appearance Overall: well-groomed, good eye contact 11/27/2015 None Full Exam - General 1994 Cardiovascular auscultation of heart Rate: tachycardia 11/27/2015 None Full Exam - General 1994 Constitutional general appearance Overall: well developed 11/12/2015 None Full Exam - General 1994 Constitutional general appearance Overall: in no acute distress 11/12/2015 None Full Exam - General 1994 Constitutional general appearance Overall: well nourished 11/12/2015 None Full Exam - General 1994 Eyes pupils and irises Overall: pupils equal, round, reactive to light and accomodation 11/12/2015 None Full Exam - General 1994 Ears/Nose/Throat lips/teeth/gingiva Overall: benign lips 11/12/2015 None Full Exam - General 1994 Ears/Nose/Throat oral cavity/pharynx/larynx Overall: oral mucosa clear 11/12/2015 None Full Exam - General 1994 Respiratory auscultation Diffuse: diminished 11/12/2015 None Full Exam - General 1994 Respiratory respiratory effort/rhythm Overall: no retractions 11/12/2015 None Full Exam - General 1994 Respiratory respiratory effort/rhythm Overall: normal rate 11/12/2015 None Full Exam - General 1994 Cardiovascular extremities Edema present: pitting 11/12/2015 None Full Exam - General 1994 Cardiovascular extremities Edema present: severity 1+ - 4 +: 1+ 11/12/2015 left greater than right Full Exam - General 1994 Cardiovascular auscultation of heart Overall: normal heart sounds 11/12/2015 None Full Exam - General 1994 Cardiovascular auscultation of heart Overall: no murmurs 11/12/2015 None Full Exam - General 1994 Cardiovascular auscultation of heart Rate: tachycardia 11/12/2015 None Full Exam - General 1994 Abdomen abdominal exam Contour: rounded 11/12/2015 None Full Exam - General 1994 Neurologic mental status Overall: alert 11/12/2015 None Full Exam - General 1994 Neurologic mental status Overall: oriented 11/12/2015 None Full Exam - General 1994 Neurologic cranial nerves Overall: crainial nerves 2 - 12 grossly intact 11/12/2015 None Full Exam - General 1994 Psychiatric orientation/consciousness Overall: oriented to person, place and time 11/12/2015 None Full Exam - General 1994 Psychiatric mood and affect Overall: normal mood and affect 11/12/2015 None Full Exam - General 1994 Psychiatric appearance Overall: well-groomed, good eye contact 11/12/2015 None Full Exam - General 1994 Constitutional general appearance Overall: well developed 11/10/2015 None Full Exam - General 1994 Constitutional general appearance Overall: in no acute distress 11/10/2015 None Full Exam - General 1994 Constitutional general appearance Overall: well nourished 11/10/2015 None Full Exam - General 1994 Ears/Nose/Throat otoscopic exam Overall: external auditory canals clear 11/10/2015 None Full Exam - General 1994 Ears/Nose/Throat otoscopic exam Overall: tympanic membranes clear 11/10/2015 None Full Exam - General 1994 Ears/Nose/Throat lips/teeth/gingiva Overall: benign lips 11/10/2015 None Full Exam - General 1994 Ears/Nose/Throat oral cavity/pharynx/larynx Overall: oral mucosa clear 11/10/2015 None Full Exam - General 1994 Ears/Nose/Throat oral cavity/pharynx/larynx Overall: oropharyngeal mucosa clear 11/10/2015 None Full Exam - General 1994 Respiratory auscultation Diffuse: diminished 11/10/2015 None Full Exam - General 1994 Respiratory respiratory effort/rhythm Overall: no retractions 11/10/2015 None Full Exam - General 1994 Respiratory respiratory effort/rhythm Overall: normal rate 11/10/2015 None Full Exam - General 1994 Cardiovascular extremities Edema present: pitting 11/10/2015 None Full Exam - General 1994 Cardiovascular extremities Edema present: severity 1+ - 4 +: 1+ 11/10/2015 left greater than right Full Exam - General 1994 Cardiovascular auscultation of heart Overall: regular rate 11/10/2015 None Full Exam - General 1994 Cardiovascular auscultation of heart Overall: normal heart sounds 11/10/2015 None Full Exam - General 1994 Abdomen abdominal exam Contour: rounded 11/10/2015 None Full Exam - General 1994 Neurologic mental status Overall: alert 11/10/2015 None Full Exam - General 1994 Neurologic mental status Overall: oriented 11/10/2015 None Full Exam - General 1994 Neurologic cranial nerves Overall: crainial nerves 2 - 12 grossly intact 11/10/2015 None Full Exam - General 1994 Psychiatric orientation/consciousness Overall: oriented to person, place and time 11/10/2015 None Full Exam - General 1994 Psychiatric mood and affect Overall: normal mood and affect 11/10/2015 None Full Exam - General 1994 Psychiatric appearance Overall: well-groomed, good eye contact 11/10/2015 None Full Exam - General 1994 Eyes conjunctiva /eyelids Overall: conjunctiva clear 11/10/2015 None Full Exam - General 1994 Eyes conjunctiva /eyelids Overall: cornea clear 11/10/2015 None Full Exam - General 1994 Psychiatric orientation/consciousness Level of consciousness: alert 11/10/2015 None Full Exam - General 1994 Psychiatric appearance Grooming: disheveled 11/10/2015 None Full Exam - General 1994 Constitutional general appearance Overall: well developed 10/27/2015 None Full Exam - General 1994 Constitutional general appearance Overall: in no acute distress 10/27/2015 None Full Exam - General 1994 Constitutional general appearance Overall: well nourished 10/27/2015 None Full Exam - General 1994 Ears/Nose/Throat lips/teeth/gingiva Overall: benign lips 10/27/2015 None Full Exam - General 1994 Ears/Nose/Throat oral cavity/pharynx/larynx Overall: oral mucosa clear 10/27/2015 None Full Exam - General 1994 Respiratory respiratory effort/rhythm Overall: no retractions 10/27/2015 None Full Exam - General 1994 Respiratory respiratory effort/rhythm Overall: normal rate 10/27/2015 None Full Exam - General 1994 Cardiovascular extremities Edema present: pitting 10/27/2015 None Full Exam - General 1994 Cardiovascular extremities Edema present: severity 1+ - 4 +: 1+ 10/27/2015 left greater than right Full Exam - General 1994 Abdomen abdominal exam Contour: rounded 10/27/2015 None Full Exam - General 1994 Integument inspection of skin Location: right foot 10/27/2015 great toe - scabbed area on the tip of the toe Full Exam - General 1994 Neurologic mental status Overall: alert 10/27/2015 None Full Exam - General 1994 Neurologic mental status Overall: oriented 10/27/2015 None Full Exam - General 1994 Neurologic cranial nerves Overall: crainial nerves 2 - 12 grossly intact 10/27/2015 None Full Exam - General 1994 Psychiatric orientation/consciousness Overall: oriented to person, place and time 10/27/2015 None Full Exam - General 1994 Psychiatric orientation/consciousness Level of consciousness: alert 10/27/2015 None Full Exam - General 1994 Psychiatric mood and affect Overall: normal mood and affect 10/27/2015 None Full Exam - General 1994 Psychiatric appearance Overall: well-groomed, good eye contact 10/27/2015 None Full Exam - General 1994 Eyes conjunctiva /eyelids Overall: conjunctiva clear 10/27/2015 None Full Exam - General 1994 Eyes conjunctiva /eyelids Overall: cornea clear 10/27/2015 None Full Exam - General 1994 Eyes conjunctiva /eyelids Overall: eyelids normal 10/27/2015 None Full Exam - General 1994 Musculoskeletal lower extremity Palpation - knee: large effusion 10/27/2015 None Full Exam - General 1994 Musculoskeletal lower extremity ROM - knee: crepitus 10/27/2015 None Full Exam - General 1994 Musculoskeletal lower extremity ROM - knee: pain with flexion 10/27/2015 None Full Exam - General 1994 Constitutional general appearance Overall: well developed 09/29/2015 None Full Exam - General 1994 Constitutional general appearance Overall: in no acute distress 09/29/2015 None Full Exam - General 1994 Constitutional general appearance Overall: well nourished 09/29/2015 None Full Exam - General 1994 Eyes pupils and irises Overall: pupils equal, round, reactive to light and accomodation 09/29/2015 None Full Exam - General 1994 Ears/Nose/Throat otoscopic exam Overall: external auditory canals clear 09/29/2015 None Full Exam - General 1994 Ears/Nose/Throat oral cavity/pharynx/larynx Overall: oral mucosa clear 09/29/2015 None Full Exam - General 1994 Respiratory auscultation Diffuse: diminished 09/29/2015 None Full Exam - General 1994 Respiratory respiratory effort/rhythm Overall: no retractions 09/29/2015 None Full Exam - General 1994 Respiratory respiratory effort/rhythm Overall: normal rate 09/29/2015 None Full Exam - General 1994 Cardiovascular extremities Edema present: pitting 09/29/2015 None Full Exam - General 1994 Cardiovascular extremities Edema present: severity 1+ - 4 +: 1+ 09/29/2015 left greater than right Full Exam - General 1994 Cardiovascular auscultation of heart Overall: regular rate 09/29/2015 None Full Exam - General 1994 Cardiovascular auscultation of heart Overall: normal heart sounds 09/29/2015 None Full Exam - General 1994 Cardiovascular auscultation of heart Overall: no murmurs 09/29/2015 None Full Exam - General 1994 Abdomen abdominal exam Contour: rounded 09/29/2015 None Full Exam - General 1994 Lymphatic neck nodes Overall: anterior cervical chain benign 09/29/2015 None Full Exam - General 1994 Lymphatic neck nodes Overall: posterior cervical chain benign 09/29/2015 None Full Exam - General 1994 Integument inspection of skin Location: right foot 09/29/2015 great toe dressing dry and intact Full Exam - General 1994 Neurologic mental status Overall: alert 09/29/2015 None Full Exam - General 1994 Neurologic mental status Overall: oriented 09/29/2015 None Full Exam - General 1994 Psychiatric orientation/consciousness Overall: oriented to person, place and time 09/29/2015 None Full Exam - General 1994 Psychiatric orientation/consciousness Oriented to person: yes 09/29/2015 None Full Exam - General 1994 Psychiatric orientation/consciousness Oriented to place: yes 09/29/2015 None Full Exam - General 1994 Psychiatric orientation/consciousness Oriented to time: yes 09/29/2015 None Full Exam - General 1994 Psychiatric orientation/consciousness Level of consciousness: alert 09/29/2015 None Full Exam - General 1994 Ears/Nose/Throat otoscopic exam Overall: tympanic membranes clear 09/29/2015 None Full Exam - General 1994 Ears/Nose/Throat lips/teeth/gingiva Overall: benign lips 09/29/2015 None Full Exam - General 1994 Ears/Nose/Throat oral cavity/pharynx/larynx Overall: oropharyngeal mucosa clear 09/29/2015 None Full Exam - General 1994 Neurologic cranial nerves Overall: crainial nerves 2 - 12 grossly intact 09/29/2015 None Full Exam - General 1994 Psychiatric mood and affect Overall: normal mood and affect 09/29/2015 None Full Exam - General 1994 Psychiatric appearance Overall: well-groomed, good eye contact 09/29/2015 None Full Exam - General 1994 Constitutional general appearance Overall: well developed 09/22/2015 None Full Exam - General 1994 Constitutional general appearance Overall: in no acute distress 09/22/2015 None Full Exam - General 1994 Constitutional general appearance Overall: well nourished 09/22/2015 None Full Exam - General 1994 Eyes pupils and irises Overall: pupils equal, round, reactive to light and accomodation 09/22/2015 None Full Exam - General 1994 Ears/Nose/Throat otoscopic exam Overall: external auditory canals clear 09/22/2015 None Full Exam - General 1994 Ears/Nose/Throat otoscopic exam Tympanic membrane: air- fluid level 09/22/2015 None Full Exam - General 1994 Ears/Nose/Throat internal nose Drainage: clear 09/22/2015 None Full Exam - General 1994 Ears/Nose/Throat oral cavity/pharynx/larynx Overall: oral mucosa clear 09/22/2015 None Full Exam - General 1994 Respiratory auscultation Diffuse: diminished 09/22/2015 None Full Exam - General 1994 Respiratory respiratory effort/rhythm Overall: no retractions 09/22/2015 None Full Exam - General 1994 Respiratory respiratory effort/rhythm Overall: normal rate 09/22/2015 None Full Exam - General 1994 Cardiovascular extremities Edema present: pitting 09/22/2015 None Full Exam - General 1994 Cardiovascular extremities Edema present: severity 1+ - 4 +: 1+ 09/22/2015 None Full Exam - General 1994 Cardiovascular auscultation of heart Overall: regular rate 09/22/2015 None Full Exam - General 1994 Cardiovascular auscultation of heart Overall: normal heart sounds 09/22/2015 None Full Exam - General 1994 Cardiovascular auscultation of heart Overall: no murmurs 09/22/2015 None Full Exam - General 1994 Abdomen abdominal exam Contour: rounded 09/22/2015 None Full Exam - General 1994 Lymphatic neck nodes Overall: anterior cervical chain benign 09/22/2015 None Full Exam - General 1994 Lymphatic neck nodes Overall: posterior cervical chain benign 09/22/2015 None Full Exam - General 1994 Integument inspection of skin Location: right leg 09/22/2015 None Full Exam - General 1994 Integument inspection of skin Location: right foot 09/22/2015 great toe dressing d/i Full Exam - General 1994 Integument inspection of skin Pigmentation: hemosideran pigment changes 09/22/2015 None Full Exam - General 1994 Neurologic mental status Overall: alert 09/22/2015 None Full Exam - General 1994 Neurologic mental status Overall: oriented 09/22/2015 None Full Exam - General 1994 Psychiatric orientation/consciousness Overall: oriented to person, place and time 09/22/2015 None Full Exam - General 1994 Psychiatric orientation/consciousness Oriented to person: yes 09/22/2015 None Full Exam - General 1994 Psychiatric orientation/consciousness Oriented to place: yes 09/22/2015 None Full Exam - General 1994 Psychiatric orientation/consciousness Oriented to time: yes 09/22/2015 None Full Exam - General 1994 Psychiatric orientation/consciousness Level of consciousness: alert 09/22/2015 None Full Exam - General 1994 Constitutional general appearance Overall: well developed 09/01/2015 None Full Exam - General 1994 Constitutional general appearance Overall: in no acute distress 09/01/2015 None Full Exam - General 1994 Constitutional general appearance Overall: well nourished 09/01/2015 None Full Exam - General 1994 Eyes pupils and irises Overall: pupils equal, round, reactive to light and accomodation 09/01/2015 None Full Exam - General 1994 Ears/Nose/Throat otoscopic exam Overall: external auditory canals clear 09/01/2015 None Full Exam - General 1994 Ears/Nose/Throat otoscopic exam Tympanic membrane: air- fluid level 09/01/2015 None Full Exam - General 1994 Ears/Nose/Throat internal nose Drainage: clear 09/01/2015 None Full Exam - General 1994 Ears/Nose/Throat oral cavity/pharynx/larynx Overall: oral mucosa clear 09/01/2015 None Full Exam - General 1994 Respiratory auscultation Diffuse: diminished 09/01/2015 None Full Exam - General 1994 Respiratory respiratory effort/rhythm Overall: no retractions 09/01/2015 None Full Exam - General 1994 Respiratory respiratory effort/rhythm Overall: normal rate 09/01/2015 None Full Exam - General 1994 Cardiovascular extremities Edema present: pitting 09/01/2015 None Full Exam - General 1994 Cardiovascular extremities Edema present: severity 1+ - 4 +: 1+ 09/01/2015 None Full Exam - General 1994 Cardiovascular auscultation of heart Overall: regular rate 09/01/2015 None Full Exam - General 1994 Cardiovascular auscultation of heart Overall: normal heart sounds 09/01/2015 None Full Exam - General 1994 Cardiovascular auscultation of heart Overall: no murmurs 09/01/2015 None Full Exam - General 1994 Abdomen abdominal exam Contour: rounded 09/01/2015 None Full Exam - General 1994 Lymphatic neck nodes Overall: anterior cervical chain benign 09/01/2015 None Full Exam - General 1994 Lymphatic neck nodes Overall: posterior cervical chain benign 09/01/2015 None Full Exam - General 1994 Integument inspection of skin Location: right leg 09/01/2015 None Full Exam - General 1994 Integument inspection of skin Pigmentation: hemosideran pigment changes 09/01/2015 None Full Exam - General 1994 Neurologic mental status Overall: alert 09/01/2015 None Full Exam - General 1994 Neurologic mental status Overall: oriented 09/01/2015 None Full Exam - General 1994 Psychiatric orientation/consciousness Overall: oriented to person, place and time 09/01/2015 None Full Exam - General 1994 Psychiatric orientation/consciousness Oriented to person: yes 09/01/2015 None Full Exam - General 1994 Psychiatric orientation/consciousness Oriented to place: yes 09/01/2015 None Full Exam - General 1994 Psychiatric orientation/consciousness Oriented to time: yes 09/01/2015 None Full Exam - General 1994 Psychiatric orientation/consciousness Level of consciousness: alert 09/01/2015 None Full Exam - General 1994 Integument inspection of skin Location: right foot 09/01/2015 great toe Full Exam - General 1994 Constitutional general appearance Overall: well developed 08/10/2015 None Full Exam - General 1994 Constitutional general appearance Overall: in no acute distress 08/10/2015 None Full Exam - General 1994 Constitutional general appearance Overall: well nourished 08/10/2015 None Full Exam - General 1994 Eyes pupils and irises Overall: pupils equal, round, reactive to light and accomodation 08/10/2015 None Full Exam - General 1994 Ears/Nose/Throat otoscopic exam Overall: external auditory canals clear 08/10/2015 None Full Exam - General 1994 Ears/Nose/Throat otoscopic exam Tympanic membrane: air- fluid level 08/10/2015 None Full Exam - General 1994 Ears/Nose/Throat internal nose Drainage: clear 08/10/2015 None Full Exam - General 1994 Ears/Nose/Throat oral cavity/pharynx/larynx Overall: oral mucosa clear 08/10/2015 None Full Exam - General 1994 Respiratory auscultation Diffuse: diminished 08/10/2015 None Full Exam - General 1994 Respiratory respiratory effort/rhythm Overall: no retractions 08/10/2015 None Full Exam - General 1994 Respiratory respiratory effort/rhythm Overall: normal rate 08/10/2015 None Full Exam - General 1994 Cardiovascular auscultation of heart Overall: regular rate 08/10/2015 None Full Exam - General 1994 Cardiovascular auscultation of heart Overall: normal heart sounds 08/10/2015 None Full Exam - General 1994 Cardiovascular auscultation of heart Overall: no murmurs 08/10/2015 None Full Exam - General 1994 Neurologic mental status Overall: alert 08/10/2015 None Full Exam - General 1994 Neurologic mental status Overall: oriented 08/10/2015 None Full Exam - General 1994 Psychiatric orientation/consciousness Overall: oriented to person, place and time 08/10/2015 None Full Exam - General 1994 Psychiatric orientation/consciousness Oriented to person: yes 08/10/2015 None Full Exam - General 1994 Psychiatric orientation/consciousness Oriented to place: yes 08/10/2015 None Full Exam - General 1994 Psychiatric orientation/consciousness Oriented to time: yes 08/10/2015 None Full Exam - General 1994 Psychiatric orientation/consciousness Level of consciousness: alert 08/10/2015 None Full Exam - General 1994 Abdomen abdominal exam Contour: rounded 08/10/2015 None Full Exam - General 1994 Cardiovascular extremities Edema present: pitting 08/10/2015 None Full Exam - General 1994 Cardiovascular extremities Edema present: severity 1+ - 4 +: 1+ 08/10/2015 None Full Exam - General 1994 Lymphatic neck nodes Overall: anterior cervical chain benign 08/10/2015 None Full Exam - General 1994 Lymphatic neck nodes Overall: posterior cervical chain benign 08/10/2015 None Full Exam - General 1994 Integument inspection of skin Location: right leg 08/10/2015 None Full Exam - General 1994 Integument inspection of skin Pigmentation: hemosideran pigment changes 08/10/2015 None Full Exam - General 1994 Constitutional general appearance Overall: well developed 06/26/2015 None Full Exam - General 1994 Constitutional general appearance Overall: in no acute distress 06/26/2015 None Full Exam - General 1994 Constitutional general appearance Overall: well nourished 06/26/2015 None Full Exam - General 1994 Eyes pupils and irises Overall: pupils equal, round, reactive to light and accomodation 06/26/2015 None Full Exam - General 1994 Ears/Nose/Throat otoscopic exam Overall: external auditory canals clear 06/26/2015 None Full Exam - General 1994 Ears/Nose/Throat internal nose Drainage: clear 06/26/2015 None Full Exam - General 1994 Respiratory respiratory effort/rhythm Overall: no retractions 06/26/2015 None Full Exam - General 1994 Respiratory respiratory effort/rhythm Overall: normal rate 06/26/2015 None Full Exam - General 1994 Cardiovascular auscultation of heart Overall: regular rate 06/26/2015 None Full Exam - General 1994 Cardiovascular auscultation of heart Overall: normal heart sounds 06/26/2015 None Full Exam - General 1994 Cardiovascular auscultation of heart Overall: no murmurs 06/26/2015 None Full Exam - General 1994 Abdomen abdominal exam Contour: protuberant 06/26/2015 None Full Exam - General 1994 Neurologic mental status Overall: alert 06/26/2015 None Full Exam - General 1994 Neurologic mental status Overall: oriented 06/26/2015 None Full Exam - General 1994 Psychiatric orientation/consciousness Overall: oriented to person, place and time 06/26/2015 None Full Exam - General 1994 Psychiatric orientation/consciousness Oriented to person: yes 06/26/2015 None Full Exam - General 1994 Psychiatric orientation/consciousness Oriented to place: yes 06/26/2015 None Full Exam - General 1994 Psychiatric orientation/consciousness Oriented to time: yes 06/26/2015 None Full Exam - General 1994 Psychiatric orientation/consciousness Level of consciousness: alert 06/26/2015 None Full Exam - General 1994 Ears/Nose/Throat otoscopic exam Tympanic membrane: air- fluid level 06/26/2015 None Full Exam - General 1994 Ears/Nose/Throat oral cavity/pharynx/larynx Overall: oral mucosa clear 06/26/2015 None Full Exam - General 1994 Respiratory auscultation Diffuse: diminished 06/26/2015 None Full Exam - General 1994 Constitutional general appearance Overall: well developed 04/14/2015 None Full Exam - General 1994 Constitutional general appearance Overall: in no acute distress 04/14/2015 None Full Exam - General 1994 Constitutional general appearance Overall: well nourished 04/14/2015 None Full Exam - General 1994 Eyes pupils and irises Overall: pupils equal, round, reactive to light and accomodation 04/14/2015 None Full Exam - General 1994 Ears/Nose/Throat external ear Overall: normal appearance 04/14/2015 None Full Exam - General 1994 Ears/Nose/Throat external ear Overall: no masses 04/14/2015 None Full Exam - General 1994 Ears/Nose/Throat external ear Overall: normal mastoids 04/14/2015 None Full Exam - General 1994 Ears/Nose/Throat otoscopic exam Overall: external auditory canals clear 04/14/2015 None Full Exam - General 1994 Ears/Nose/Throat otoscopic exam External auditory canal: a normal exam 04/14/2015 None Full Exam - General 1994 Ears/Nose/Throat otoscopic exam External auditory canal: minimal cerumen 04/14/2015 None Full Exam - General 1994 Ears/Nose/Throat otoscopic exam Tympanic membrane: a normal exam 04/14/2015 None Full Exam - General 1994 Ears/Nose/Throat internal nose Overall: bilateral nasal cavities clear 04/14/2015 None Full Exam - General 1994 Ears/Nose/Throat internal nose Drainage: clear 04/14/2015 None Full Exam - General 1994 Respiratory auscultation Overall: breath sounds clear bilaterally 04/14/2015 None Full Exam - General 1994 Respiratory respiratory effort/rhythm Overall: no retractions 04/14/2015 None Full Exam - General 1994 Respiratory respiratory effort/rhythm Overall: normal rate 04/14/2015 None Full Exam - General 1994 Cardiovascular extremities Edema present: pitting 04/14/2015 None Full Exam - General 1994 Cardiovascular extremities Edema present: severity 1+ - 4 +: 1+ 04/14/2015 None Full Exam - General 1994 Cardiovascular auscultation of heart Overall: regular rate 04/14/2015 None Full Exam - General 1994 Cardiovascular auscultation of heart Overall: normal heart sounds 04/14/2015 None Full Exam - General 1994 Cardiovascular auscultation of heart Overall: no murmurs 04/14/2015 None Full Exam - General 1994 Abdomen abdominal exam Contour: protuberant 04/14/2015 None Full Exam - General 1994 Abdomen abdominal exam Bowel sounds: a normal exam 04/14/2015 None Full Exam - General 1994 Integument inspection of skin Location: right leg 04/14/2015 None Full Exam - General 1994 Integument inspection of skin Pigmentation: erythematous 04/14/2015 with blister noted to right anterior leg Full Exam - General 1994 Neurologic mental status Overall: alert 04/14/2015 None Full Exam - General 1994 Neurologic mental status Overall: oriented 04/14/2015 None Full Exam - General 1994 Psychiatric orientation/consciousness Overall: oriented to person, place and time 04/14/2015 None Full Exam - General 1994 Psychiatric orientation/consciousness Oriented to person: yes 04/14/2015 None Full Exam - General 1994 Psychiatric orientation/consciousness Oriented to place: yes 04/14/2015 None Full Exam - General 1994 Psychiatric orientation/consciousness Oriented to time: yes 04/14/2015 None Full Exam - General 1994 Psychiatric orientation/consciousness Level of consciousness: alert 04/14/2015 None Full Exam - General 1994 Constitutional general appearance Overall: well developed 03/03/2015 None Full Exam - General 1994 Constitutional general appearance Overall: in no acute distress 03/03/2015 None Full Exam - General 1994 Ears/Nose/Throat external ear Overall: normal appearance 03/03/2015 None Full Exam - General 1994 Ears/Nose/Throat external ear Overall: no masses 03/03/2015 None Full Exam - General 1994 Ears/Nose/Throat external ear Overall: normal mastoids 03/03/2015 None Full Exam - General 1994 Ears/Nose/Throat otoscopic exam Overall: external auditory canals clear 03/03/2015 None Full Exam - General 1994 Ears/Nose/Throat otoscopic exam External auditory canal: a normal exam 03/03/2015 None Full Exam - General 1994 Ears/Nose/Throat otoscopic exam Tympanic membrane: a normal exam 03/03/2015 None Full Exam - General 1994 Ears/Nose/Throat internal nose Overall: bilateral nasal cavities clear 03/03/2015 None Full Exam - General 1994 Respiratory auscultation Overall: breath sounds clear bilaterally 03/03/2015 None Full Exam - General 1994 Respiratory respiratory effort/rhythm Overall: no retractions 03/03/2015 None Full Exam - General 1994 Respiratory respiratory effort/rhythm Overall: normal rate 03/03/2015 None Full Exam - General 1994 Cardiovascular extremities Edema present: pitting 03/03/2015 None Full Exam - General 1994 Cardiovascular extremities Edema present: severity 1+ - 4 +: 1+ 03/03/2015 None Full Exam - General 1994 Cardiovascular auscultation of heart Overall: regular rate 03/03/2015 None Full Exam - General 1994 Cardiovascular auscultation of heart Overall: normal heart sounds 03/03/2015 None Full Exam - General 1994 Cardiovascular auscultation of heart Overall: no murmurs 03/03/2015 None Full Exam - General 1994 Abdomen abdominal exam Contour: protuberant 03/03/2015 None Full Exam - General 1994 Abdomen abdominal exam Bowel sounds: a normal exam 03/03/2015 None Full Exam - General 1994 Integument inspection of skin Location: right leg 03/03/2015 None Full Exam - General 1994 Integument inspection of skin Pigmentation: erythematous 03/03/2015 None Full Exam - General 1994 Neurologic mental status Overall: alert 03/03/2015 None Full Exam - General 1994 Neurologic mental status Overall: oriented 03/03/2015 None Full Exam - General 1994 Psychiatric orientation/consciousness Overall: oriented to person, place and time 03/03/2015 None Full Exam - General 1994 Psychiatric orientation/consciousness Oriented to person: yes 03/03/2015 None Full Exam - General 1994 Psychiatric orientation/consciousness Oriented to place: yes 03/03/2015 None Full Exam - General 1994 Psychiatric orientation/consciousness Oriented to time: yes 03/03/2015 None Full Exam - General 1994 Psychiatric orientation/consciousness Level of consciousness: alert 03/03/2015 None Full Exam - General 1994 Constitutional general appearance Nourishment: obese 03/03/2015 None Full Exam - General 1994 Ears/Nose/Throat internal nose Sinus tenderness: left frontal 03/03/2015 None Full Exam - General 1994 Ears/Nose/Throat internal nose Sinus tenderness: right frontal 03/03/2015 None Full Exam - General 1994 Ears/Nose/Throat internal nose Sinus tenderness: right maxillary 03/03/2015 None Full Exam - General 1994 Ears/Nose/Throat internal nose Sinus tenderness: left maxillary 03/03/2015 None Full Exam - General 1994 Ears/Nose/Throat internal nose Drainage: yellow 03/03/2015 None Full Exam - General 1994 Ears/Nose/Throat otoscopic exam Tympanic membrane: not visualized 03/03/2015 None Full Exam - General 1994 Ears/Nose/Throat otoscopic exam External auditory canal: partial cerumen occlusion 03/03/2015 None Full Exam - General 1994 Ears/Nose/Throat otoscopic exam External auditory canal: tender 03/03/2015 None Full Exam - General 1994 Eyes conjunctiva /eyelids Overall: conjunctiva clear 03/03/2015 None Full Exam - General 1994 Eyes conjunctiva /eyelids Overall: eyelids normal 03/03/2015 None Full Exam - General 1994 Eyes conjunctiva /eyelids Overall: cornea clear 03/03/2015 None Full Exam - General 1994 Eyes pupils and irises Overall: pupils equal, round, reactive to light and accomodation 03/03/2015 None Full Exam - General 1994 Integument palpation Leg: edema 2+ PITTING Full Exam - General 1994 Integument inspection of skin Location: left leg 03/03/2015 None Full Exam - General 1994 Integument inspection of skin Consistency: dry 03/03/2015 None Full Exam - General 1994 Integument inspection of skin Consistency: edema 03/03/2015 None Full Exam - General 1994 Integument inspection of skin Dermatitis: dryness/ flaking 03/03/2015 None Full Exam - General 1994 Constitutional general appearance Overall: well developed 01/15/2015 None Full Exam - General 1994 Constitutional general appearance Overall: in no acute distress 01/15/2015 None Full Exam - General 1994 Constitutional general appearance Overall: well nourished 01/15/2015 None Full Exam - General 1994 Constitutional general appearance Hygiene/Attention to Grooming: poor hygiene 01/15/2015 None Full Exam - General 1994 Psychiatric orientation/consciousness Overall: oriented to person, place and time 01/15/2015 None Full Exam - General 1994 Integument inspection of skin Location: right leg 01/15/2015 large blister right anterior lower leg approx 10cm x 8 cm with surrounding erythema- excoriated lesions thigh to ankle Full Exam - General 1994 Cardiovascular extremities Edema present: pitting 01/15/2015 None Full Exam - General 1994 Cardiovascular extremities Edema present: severity 1+ - 4 +: 2+ bilateral lower legs 01/15/2015 None Full Exam - General 1994 Cardiovascular extremities Edema present: bilateral 01/15/2015 None Full Exam - General 1994 Cardiovascular extremities Edema present: to knees 01/15/2015 None Full Exam - General 1994 Constitutional general appearance Overall: well developed 01/01/2015 None Full Exam - General 1994 Constitutional general appearance Overall: in no acute distress 01/01/2015 None Full Exam - General 1994 Constitutional general appearance Overall: well nourished 01/01/2015 None Full Exam - General 1994 Ears/Nose/Throat external ear Overall: normal appearance 01/01/2015 None Full Exam - General 1994 Ears/Nose/Throat external ear Overall: no masses 01/01/2015 None Full Exam - General 1994 Ears/Nose/Throat external ear Overall: normal mastoids 01/01/2015 None Full Exam - General 1994 Ears/Nose/Throat otoscopic exam Overall: external auditory canals clear 01/01/2015 None Full Exam - General 1994 Ears/Nose/Throat otoscopic exam External auditory canal: a normal exam 01/01/2015 None Full Exam - General 1994 Ears/Nose/Throat otoscopic exam External auditory canal: minimal cerumen 01/01/2015 None Full Exam - General 1994 Ears/Nose/Throat otoscopic exam Tympanic membrane: a normal exam 01/01/2015 None Full Exam - General 1994 Ears/Nose/Throat internal nose Overall: bilateral nasal cavities clear 01/01/2015 None Full Exam - General 1994 Ears/Nose/Throat internal nose Drainage: clear 01/01/2015 None Full Exam - General 1994 Respiratory auscultation Overall: breath sounds clear bilaterally 01/01/2015 None Full Exam - General 1994 Respiratory respiratory effort/rhythm Overall: no retractions 01/01/2015 None Full Exam - General 1994 Respiratory respiratory effort/rhythm Overall: normal rate 01/01/2015 None Full Exam - General 1994 Cardiovascular extremities Edema present: pitting 01/01/2015 None Full Exam - General 1994 Cardiovascular extremities Edema present: severity 1+ - 4 +: 1+ 01/01/2015 None Full Exam - General 1994 Cardiovascular auscultation of heart Overall: regular rate 01/01/2015 None Full Exam - General 1994 Cardiovascular auscultation of heart Overall: normal heart sounds 01/01/2015 None Full Exam - General 1994 Cardiovascular auscultation of heart Overall: no murmurs 01/01/2015 None Full Exam - General 1994 Abdomen abdominal exam Contour: protuberant 01/01/2015 None Full Exam - General 1994 Abdomen abdominal exam Bowel sounds: a normal exam 01/01/2015 None Full Exam - General 1994 Integument inspection of skin Location: right leg 01/01/2015 None Full Exam - General 1994 Integument inspection of skin Pigmentation: erythematous 01/01/2015 None Full Exam - General 1994 Neurologic mental status Overall: alert 01/01/2015 None Full Exam - General 1994 Neurologic mental status Overall: oriented 01/01/2015 None Full Exam - General 1994 Psychiatric orientation/consciousness Overall: oriented to person, place and time 01/01/2015 None Full Exam - General 1994 Psychiatric orientation/consciousness Oriented to person: yes 01/01/2015 None Full Exam - General 1994 Psychiatric orientation/consciousness Oriented to place: yes 01/01/2015 None Full Exam - General 1994 Psychiatric orientation/consciousness Oriented to time: yes 01/01/2015 None Full Exam - General 1994 Psychiatric orientation/consciousness Level of consciousness: alert 01/01/2015 None Full Exam - General 1994 Eyes pupils and irises Overall: pupils equal, round, reactive to light and accomodation 01/01/2015 None Full Exam - General 1994 Constitutional general appearance Overall: well developed 11/04/2014 None Full Exam - General 1994 Constitutional general appearance Overall: in no acute distress 11/04/2014 None Full Exam - General 1994 Constitutional general appearance Overall: well nourished 11/04/2014 None Full Exam - General 1994 Ears/Nose/Throat external ear Overall: normal appearance 11/04/2014 None Full Exam - General 1994 Ears/Nose/Throat external ear Overall: no masses 11/04/2014 None Full Exam - General 1994 Ears/Nose/Throat external ear Overall: normal mastoids 11/04/2014 None Full Exam - General 1994 Ears/Nose/Throat otoscopic exam Overall: external auditory canals clear 11/04/2014 None Full Exam - General 1994 Ears/Nose/Throat otoscopic exam External auditory canal: a normal exam 11/04/2014 None Full Exam - General 1994 Ears/Nose/Throat otoscopic exam External auditory canal: minimal cerumen 11/04/2014 None Full Exam - General 1994 Ears/Nose/Throat otoscopic exam Tympanic membrane: a normal exam 11/04/2014 None Full Exam - General 1994 Ears/Nose/Throat internal nose Overall: bilateral nasal cavities clear 11/04/2014 None Full Exam - General 1994 Ears/Nose/Throat internal nose Drainage: clear 11/04/2014 None Full Exam - General 1994 Respiratory auscultation Overall: breath sounds clear bilaterally 11/04/2014 None Full Exam - General 1994 Respiratory respiratory effort/rhythm Overall: no retractions 11/04/2014 None Full Exam - General 1994 Respiratory respiratory effort/rhythm Overall: normal rate 11/04/2014 None Full Exam - General 1994 Cardiovascular extremities Edema present: pitting 11/04/2014 None Full Exam - General 1994 Cardiovascular extremities Edema present: severity 1+ - 4 +: 1+ 11/04/2014 None Full Exam - General 1994 Cardiovascular auscultation of heart Overall: regular rate 11/04/2014 None Full Exam - General 1994 Cardiovascular auscultation of heart Overall: normal heart sounds 11/04/2014 None Full Exam - General 1994 Cardiovascular auscultation of heart Overall: no murmurs 11/04/2014 None Full Exam - General 1994 Abdomen abdominal exam Contour: protuberant 11/04/2014 None Full Exam - General 1994 Abdomen abdominal exam Bowel sounds: a normal exam 11/04/2014 None Full Exam - General 1994 Integument inspection of skin Location: right leg 11/04/2014 None Full Exam - General 1994 Integument inspection of skin Pigmentation: erythematous 11/04/2014 None Full Exam - General 1994 Neurologic mental status Overall: alert 11/04/2014 None Full Exam - General 1994 Neurologic mental status Overall: oriented 11/04/2014 None Full Exam - General 1994 Psychiatric orientation/consciousness Overall: oriented to person, place and time 11/04/2014 None Full Exam - General 1994 Psychiatric orientation/consciousness Oriented to person: yes 11/04/2014 None Full Exam - General 1994 Psychiatric orientation/consciousness Oriented to place: yes 11/04/2014 None Full Exam - General 1994 Psychiatric orientation/consciousness Oriented to time: yes 11/04/2014 None Full Exam - General 1994 Psychiatric orientation/consciousness Level of consciousness: alert 11/04/2014 None Full Exam - General 1994 Constitutional general appearance Overall: well developed 09/08/2014 None Full Exam - General 1994 Constitutional general appearance Overall: in no acute distress 09/08/2014 None Full Exam - General 1994 Constitutional general appearance Overall: well nourished 09/08/2014 None Full Exam - General 1994 Ears/Nose/Throat external ear Overall: normal appearance 09/08/2014 None Full Exam - General 1994 Ears/Nose/Throat external ear Overall: no masses 09/08/2014 None Full Exam - General 1994 Ears/Nose/Throat external ear Overall: normal mastoids 09/08/2014 None Full Exam - General 1994 Ears/Nose/Throat internal nose Overall: bilateral nasal cavities clear 09/08/2014 None Full Exam - General 1994 Ears/Nose/Throat internal nose Drainage: clear 09/08/2014 None Full Exam - General 1994 Respiratory auscultation Overall: breath sounds clear bilaterally 09/08/2014 None Full Exam - General 1994 Respiratory respiratory effort/rhythm Overall: no retractions 09/08/2014 None Full Exam - General 1994 Respiratory respiratory effort/rhythm Overall: normal rate 09/08/2014 None Full Exam - General 1994 Cardiovascular extremities Edema present: pitting 09/08/2014 None Full Exam - General 1994 Cardiovascular extremities Edema present: severity 1+ - 4 +: 1+ 09/08/2014 None Full Exam - General 1994 Cardiovascular auscultation of heart Overall: regular rate 09/08/2014 None Full Exam - General 1994 Cardiovascular auscultation of heart Overall: normal heart sounds 09/08/2014 None Full Exam - General 1994 Cardiovascular auscultation of heart Overall: no murmurs 09/08/2014 None Full Exam - General 1994 Abdomen abdominal exam Contour: protuberant 09/08/2014 None Full Exam - General 1994 Abdomen abdominal exam Bowel sounds: a normal exam 09/08/2014 None Full Exam - General 1994 Integument inspection of skin Location: right leg 09/08/2014 None Full Exam - General 1994 Integument inspection of skin Pigmentation: erythematous 09/08/2014 --Improved Full Exam - General 1994 Neurologic mental status Overall: alert 09/08/2014 None Full Exam - General 1994 Neurologic mental status Overall: oriented 09/08/2014 None Full Exam - General 1994 Psychiatric orientation/consciousness Overall: oriented to person, place and time 09/08/2014 None Full Exam - General 1994 Psychiatric orientation/consciousness Oriented to person: yes 09/08/2014 None Full Exam - General 1994 Psychiatric orientation/consciousness Oriented to place: yes 09/08/2014 None Full Exam - General 1994 Psychiatric orientation/consciousness Oriented to time: yes 09/08/2014 None Full Exam - General 1994 Psychiatric orientation/consciousness Level of consciousness: alert 09/08/2014 None Full Exam - General 1994 Ears/Nose/Throat otoscopic exam External auditory canal: erythematous 09/08/2014 None Full Exam - General 1994 Ears/Nose/Throat otoscopic exam Tympanic membrane: a normal exam 09/08/2014 None Full Exam - General 1994 Psychiatric orientation/consciousness Overall: oriented to person, place and time 08/29/2014 None Full Exam - General 1994 Constitutional general appearance Overall: well developed 08/29/2014 None Full Exam - General 1994 Constitutional general appearance Overall: in no acute distress 08/29/2014 None Full Exam - General 1994 Constitutional general appearance Overall: well nourished 08/29/2014 None Full Exam - General 1994 Ears/Nose/Throat external ear Overall: normal appearance 08/29/2014 None Full Exam - General 1994 Ears/Nose/Throat external ear Overall: no masses 08/29/2014 None Full Exam - General 1994 Ears/Nose/Throat external ear Overall: normal mastoids 08/29/2014 None Full Exam - General 1994 Ears/Nose/Throat internal nose Overall: bilateral nasal cavities clear 08/29/2014 None Full Exam - General 1994 Ears/Nose/Throat internal nose Drainage: clear 08/29/2014 None Full Exam - General 1994 Respiratory auscultation Overall: breath sounds clear bilaterally 08/29/2014 None Full Exam - General 1994 Respiratory respiratory effort/rhythm Overall: no retractions 08/29/2014 None Full Exam - General 1994 Respiratory respiratory effort/rhythm Overall: normal rate 08/29/2014 None Full Exam - General 1994 Cardiovascular extremities Edema present: pitting 08/29/2014 None Full Exam - General 1994 Cardiovascular extremities Edema present: severity 1+ - 4 +: 1+ 08/29/2014 None Full Exam - General 1994 Cardiovascular auscultation of heart Overall: regular rate 08/29/2014 None Full Exam - General 1994 Cardiovascular auscultation of heart Overall: normal heart sounds 08/29/2014 None Full Exam - General 1994 Cardiovascular auscultation of heart Overall: no murmurs 08/29/2014 None Full Exam - General 1994 Abdomen abdominal exam Contour: protuberant 08/29/2014 None Full Exam - General 1994 Abdomen abdominal exam Bowel sounds: a normal exam 08/29/2014 None Full Exam - General 1994 Integument inspection of skin Location: right leg 08/29/2014 None Full Exam - General 1994 Integument inspection of skin Pigmentation: erythematous 08/29/2014 None Full Exam - General 1994 Neurologic mental status Overall: alert 08/29/2014 None Full Exam - General 1994 Neurologic mental status Overall: oriented 08/29/2014 None Full Exam - General 1994 Psychiatric orientation/consciousness Oriented to person: yes 08/29/2014 None Full Exam - General 1994 Psychiatric orientation/consciousness Oriented to place: yes 08/29/2014 None Full Exam - General 1994 Psychiatric orientation/consciousness Oriented to time: yes 08/29/2014 None Full Exam - General 1994 Psychiatric orientation/consciousness Level of consciousness: alert 08/29/2014 None Full Exam - General 1994 Ears/Nose/Throat otoscopic exam Overall: external auditory canals clear 08/29/2014 None Full Exam - General 1994 Ears/Nose/Throat otoscopic exam External auditory canal: a normal exam 08/29/2014 None Full Exam - General 1994 Ears/Nose/Throat otoscopic exam External auditory canal: minimal cerumen 08/29/2014 None Full Exam - General 1994 Ears/Nose/Throat otoscopic exam Tympanic membrane: a normal exam 08/29/2014 None Full Exam - General 1994 Constitutional general appearance Overall: well developed 06/30/2014 None Full Exam - General 1994 Constitutional general appearance Overall: in no acute distress 06/30/2014 None Full Exam - General 1994 Constitutional general appearance Overall: well nourished 06/30/2014 None Full Exam - General 1994 Eyes pupils and irises Overall: pupils equal, round, reactive to light and accomodation 06/30/2014 None Full Exam - General 1994 Ears/Nose/Throat external ear Overall: normal appearance 06/30/2014 None Full Exam - General 1994 Ears/Nose/Throat external ear Overall: no masses 06/30/2014 None Full Exam - General 1994 Ears/Nose/Throat external ear Overall: normal mastoids 06/30/2014 None Full Exam - General 1994 Ears/Nose/Throat otoscopic exam External auditory canal: a normal exam 06/30/2014 None Full Exam - General 1994 Ears/Nose/Throat otoscopic exam External auditory canal: partial cerumen occlusion 06/30/2014 None Full Exam - General 1994 Ears/Nose/Throat otoscopic exam Tympanic membrane: a normal exam 06/30/2014 None Full Exam - General 1994 Ears/Nose/Throat otoscopic exam Tympanic membrane: not visualized 06/30/2014 None Full Exam - General 1994 Ears/Nose/Throat internal nose Overall: bilateral nasal cavities clear 06/30/2014 None Full Exam - General 1994 Ears/Nose/Throat internal nose Turbinates: erythema 06/30/2014 None Full Exam - General 1994 Ears/Nose/Throat internal nose Drainage: clear 06/30/2014 None Full Exam - General 1994 Respiratory auscultation Overall: breath sounds clear bilaterally 06/30/2014 None Full Exam - General 1994 Respiratory respiratory effort/rhythm Overall: no retractions 06/30/2014 None Full Exam - General 1994 Respiratory respiratory effort/rhythm Overall: normal rate 06/30/2014 None Full Exam - General 1994 Abdomen abdominal exam Contour: protuberant 06/30/2014 None Full Exam - General 1994 Abdomen abdominal exam Bowel sounds: a normal exam 06/30/2014 None Full Exam - General 1994 Integument inspection of skin Location: right leg 06/30/2014 None Full Exam - General 1994 Integument inspection of skin Pigmentation: erythematous 06/30/2014 None Full Exam - General 1994 Neurologic mental status Overall: alert 06/30/2014 None Full Exam - General 1994 Neurologic mental status Overall: oriented 06/30/2014 None Full Exam - General 1994 Psychiatric orientation/consciousness Oriented to person: yes 06/30/2014 None Full Exam - General 1994 Psychiatric orientation/consciousness Oriented to place: yes 06/30/2014 None Full Exam - General 1994 Psychiatric orientation/consciousness Oriented to time: yes 06/30/2014 None Full Exam - General 1994 Psychiatric orientation/consciousness Level of consciousness: alert 06/30/2014 None Full Exam - General 1994 Cardiovascular auscultation of heart Overall: regular rate 06/30/2014 None Full Exam - General 1994 Cardiovascular auscultation of heart Overall: normal heart sounds 06/30/2014 None Full Exam - General 1994 Cardiovascular auscultation of heart Overall: no murmurs 06/30/2014 None Full Exam - General 1994 Cardiovascular extremities Edema present: pitting 06/30/2014 None Full Exam - General 1994 Cardiovascular extremities Edema present: severity 1+ - 4 +: 1+ 06/30/2014 None Full Exam - General 1994 Constitutional general appearance Overall: well developed 06/12/2014 None Full Exam - General 1994 Constitutional general appearance Overall: in no acute distress 06/12/2014 None Full Exam - General 1994 Constitutional general appearance Overall: well nourished 06/12/2014 None Full Exam - General 1994 Eyes pupils and irises Overall: pupils equal, round, reactive to light and accomodation 06/12/2014 None Full Exam - General 1994 Ears/Nose/Throat external ear Overall: normal appearance 06/12/2014 None Full Exam - General 1994 Ears/Nose/Throat external ear Overall: no masses 06/12/2014 None Full Exam - General 1994 Ears/Nose/Throat external ear Overall: normal mastoids 06/12/2014 None Full Exam - General 1994 Ears/Nose/Throat otoscopic exam External auditory canal: a normal exam 06/12/2014 None Full Exam - General 1994 Ears/Nose/Throat otoscopic exam External auditory canal: partial cerumen occlusion 06/12/2014 None Full Exam - General 1994 Ears/Nose/Throat otoscopic exam Tympanic membrane: a normal exam 06/12/2014 None Full Exam - General 1994 Ears/Nose/Throat otoscopic exam Tympanic membrane: not visualized 06/12/2014 None Full Exam - General 1994 Ears/Nose/Throat internal nose Overall: bilateral nasal cavities clear 06/12/2014 None Full Exam - General 1994 Ears/Nose/Throat internal nose Turbinates: erythema 06/12/2014 None Full Exam - General 1994 Ears/Nose/Throat internal nose Drainage: clear 06/12/2014 None Full Exam - General 1994 Respiratory auscultation Overall: breath sounds clear bilaterally 06/12/2014 None Full Exam - General 1994 Respiratory respiratory effort/rhythm Overall: no retractions 06/12/2014 None Full Exam - General 1994 Respiratory respiratory effort/rhythm Overall: normal rate 06/12/2014 None Full Exam - General 1994 Cardiovascular auscultation of heart Overall: regular rate 06/12/2014 None Full Exam - General 1994 Cardiovascular auscultation of heart Overall: normal heart sounds 06/12/2014 tachycardia Full Exam - General 1994 Cardiovascular auscultation of heart Overall: no murmurs 06/12/2014 None Full Exam - General 1994 Integument inspection of skin Location: right leg 06/12/2014 None Full Exam - General 1994 Integument inspection of skin Rash/Lesions: skin tear 06/12/2014 --Resolved Full Exam - General 1994 Integument inspection of skin Pigmentation: erythematous 06/12/2014 None Full Exam - General 1994 Neurologic mental status Overall: alert 06/12/2014 None Full Exam - General 1994 Neurologic mental status Overall: oriented 06/12/2014 None Full Exam - General 1994 Psychiatric orientation/consciousness Oriented to person: yes 06/12/2014 None Full Exam - General 1994 Psychiatric orientation/consciousness Oriented to place: yes 06/12/2014 None Full Exam - General 1994 Psychiatric orientation/consciousness Oriented to time: yes 06/12/2014 None Full Exam - General 1994 Psychiatric orientation/consciousness Level of consciousness: alert 06/12/2014 None Full Exam - General 1994 Abdomen abdominal exam Contour: protuberant 06/12/2014 None Full Exam - General 1994 Abdomen abdominal exam Bowel sounds: a normal exam 06/12/2014 None Full Exam - General 1994 Constitutional general appearance Overall: well developed 05/26/2014 None Full Exam - General 1994 Constitutional general appearance Overall: in no acute distress 05/26/2014 None Full Exam - General 1994 Constitutional general appearance Overall: well nourished 05/26/2014 None Full Exam - General 1994 Eyes pupils and irises Overall: pupils equal, round, reactive to light and accomodation 05/26/2014 None Full Exam - General 1994 Ears/Nose/Throat external ear Overall: normal appearance 05/26/2014 None Full Exam - General 1994 Ears/Nose/Throat external ear Overall: no masses 05/26/2014 None Full Exam - General 1994 Ears/Nose/Throat external ear Overall: normal mastoids 05/26/2014 None Full Exam - General 1994 Ears/Nose/Throat otoscopic exam External auditory canal: a normal exam 05/26/2014 None Full Exam - General 1994 Ears/Nose/Throat otoscopic exam External auditory canal: partial cerumen occlusion 05/26/2014 None Full Exam - General 1994 Ears/Nose/Throat otoscopic exam Tympanic membrane: a normal exam 05/26/2014 None Full Exam - General 1994 Ears/Nose/Throat otoscopic exam Tympanic membrane: not visualized 05/26/2014 None Full Exam - General 1994 Ears/Nose/Throat internal nose Overall: bilateral nasal cavities clear 05/26/2014 None Full Exam - General 1994 Ears/Nose/Throat internal nose Turbinates: erythema 05/26/2014 None Full Exam - General 1994 Ears/Nose/Throat internal nose Drainage: clear 05/26/2014 None Full Exam - General 1994 Respiratory auscultation Overall: breath sounds clear bilaterally 05/26/2014 None Full Exam - General 1994 Respiratory respiratory effort/rhythm Overall: no retractions 05/26/2014 None Full Exam - General 1994 Respiratory respiratory effort/rhythm Overall: normal rate 05/26/2014 None Full Exam - General 1994 Cardiovascular auscultation of heart Overall: regular rate 05/26/2014 None Full Exam - General 1994 Cardiovascular auscultation of heart Overall: normal heart sounds 05/26/2014 tachycardia Full Exam - General 1994 Cardiovascular auscultation of heart Overall: no murmurs 05/26/2014 None Full Exam - General 1994 Neurologic mental status Overall: alert 05/26/2014 None Full Exam - General 1994 Neurologic mental status Overall: oriented 05/26/2014 None Full Exam - General 1994 Psychiatric orientation/consciousness Oriented to person: yes 05/26/2014 None Full Exam - General 1994 Psychiatric orientation/consciousness Oriented to place: yes 05/26/2014 None Full Exam - General 1994 Psychiatric orientation/consciousness Oriented to time: yes 05/26/2014 None Full Exam - General 1994 Psychiatric orientation/consciousness Level of consciousness: alert 05/26/2014 None Full Exam - General 1994 Integument inspection of skin Rash/Lesions: skin tear 05/26/2014 None Full Exam - General 1994 Integument inspection of skin Location: right leg 05/26/2014 None Full Exam - General 1994 Integument inspection of skin Pigmentation: erythematous 05/26/2014 None Full Exam - General 1994 Constitutional general appearance Overall: well developed 04/15/2014 None Full Exam - General 1994 Constitutional general appearance Overall: in no acute distress 04/15/2014 None Full Exam - General 1994 Constitutional general appearance Overall: well nourished 04/15/2014 None Full Exam - General 1994 Eyes pupils and irises Overall: pupils equal, round, reactive to light and accomodation 04/15/2014 None Full Exam - General 1994 Ears/Nose/Throat external ear Overall: normal appearance 04/15/2014 None Full Exam - General 1994 Ears/Nose/Throat external ear Overall: no masses 04/15/2014 None Full Exam - General 1994 Ears/Nose/Throat external ear Overall: normal mastoids 04/15/2014 None Full Exam - General 1994 Ears/Nose/Throat otoscopic exam External auditory canal: a normal exam 04/15/2014 None Full Exam - General 1994 Ears/Nose/Throat otoscopic exam External auditory canal: partial cerumen occlusion 04/15/2014 None Full Exam - General 1994 Ears/Nose/Throat otoscopic exam Tympanic membrane: a normal exam 04/15/2014 None Full Exam - General 1994 Ears/Nose/Throat otoscopic exam Tympanic membrane: not visualized 04/15/2014 None Full Exam - General 1994 Ears/Nose/Throat internal nose Overall: bilateral nasal cavities clear 04/15/2014 None Full Exam - General 1994 Ears/Nose/Throat internal nose Turbinates: erythema 04/15/2014 None Full Exam - General 1994 Ears/Nose/Throat internal nose Drainage: clear 04/15/2014 None Full Exam - General 1994 Respiratory auscultation Overall: breath sounds clear bilaterally 04/15/2014 None Full Exam - General 1994 Respiratory respiratory effort/rhythm Overall: no retractions 04/15/2014 None Full Exam - General 1994 Respiratory respiratory effort/rhythm Overall: normal rate 04/15/2014 None Full Exam - General 1994 Cardiovascular auscultation of heart Overall: regular rate 04/15/2014 None Full Exam - General 1994 Cardiovascular auscultation of heart Overall: normal heart sounds 04/15/2014 tachycardia Full Exam - General 1994 Cardiovascular auscultation of heart Overall: no murmurs 04/15/2014 None Full Exam - General 1994 Lymphatic neck nodes Overall: shotty lymphadenopathy 04/15/2014 None Full Exam - General 1994 Neurologic mental status Overall: alert 04/15/2014 None Full Exam - General 1994 Neurologic mental status Overall: oriented 04/15/2014 None Full Exam - General 1994 Psychiatric orientation/consciousness Oriented to person: yes 04/15/2014 None Full Exam - General 1994 Psychiatric orientation/consciousness Oriented to place: yes 04/15/2014 None Full Exam - General 1994 Psychiatric orientation/consciousness Oriented to time: yes 04/15/2014 None Full Exam - General 1994 Psychiatric orientation/consciousness Level of consciousness: alert 04/15/2014 None Full Exam - General 1994 Constitutional general appearance Overall: well developed 03/25/2014 None Full Exam - General 1994 Constitutional general appearance Overall: in no acute distress 03/25/2014 None Full Exam - General 1994 Constitutional general appearance Overall: well nourished 03/25/2014 None Full Exam - General 1994 Eyes pupils and irises Overall: pupils equal, round, reactive to light and accomodation 03/25/2014 None Full Exam - General 1994 Ears/Nose/Throat external ear Overall: normal appearance 03/25/2014 None Full Exam - General 1994 Ears/Nose/Throat external ear Overall: no masses 03/25/2014 None Full Exam - General 1994 Ears/Nose/Throat external ear Overall: normal mastoids 03/25/2014 None Full Exam - General 1994 Ears/Nose/Throat otoscopic exam External auditory canal: a normal exam 03/25/2014 None Full Exam - General 1994 Ears/Nose/Throat otoscopic exam External auditory canal: partial cerumen occlusion 03/25/2014 None Full Exam - General 1994 Ears/Nose/Throat otoscopic exam Tympanic membrane: a normal exam 03/25/2014 None Full Exam - General 1994 Ears/Nose/Throat otoscopic exam Tympanic membrane: not visualized 03/25/2014 None Full Exam - General 1994 Ears/Nose/Throat internal nose Overall: bilateral nasal cavities clear 03/25/2014 None Full Exam - General 1994 Ears/Nose/Throat internal nose Drainage: clear 03/25/2014 None Full Exam - General 1994 Respiratory auscultation Overall: breath sounds clear bilaterally 03/25/2014 None Full Exam - General 1994 Respiratory respiratory effort/rhythm Overall: no retractions 03/25/2014 None Full Exam - General 1994 Respiratory respiratory effort/rhythm Overall: normal rate 03/25/2014 None Full Exam - General 1994 Cardiovascular extremities Edema present: pitting 03/25/2014 None Full Exam - General 1994 Cardiovascular extremities Edema present: severity 1+ - 4 +: 2+ 03/25/2014 None Full Exam - General 1994 Cardiovascular extremities Edema present: to leg 03/25/2014 right >left Full Exam - General 1994 Cardiovascular auscultation of heart Overall: regular rate 03/25/2014 None Full Exam - General 1994 Cardiovascular auscultation of heart Overall: normal heart sounds 03/25/2014 None Full Exam - General 1994 Abdomen abdominal exam Contour: protuberant 03/25/2014 None Full Exam - General 1994 Abdomen abdominal exam Bowel sounds: a normal exam 03/25/2014 None Full Exam - General 1994 Integument inspection of skin Location: right leg 03/25/2014 anterior-erythema with fluid filled blister noted --Resolved Full Exam - General 1994 Neurologic mental status Overall: alert 03/25/2014 None Full Exam - General 1994 Neurologic mental status Overall: oriented 03/25/2014 None Full Exam - General 1994 Psychiatric orientation/consciousness Oriented to person: yes 03/25/2014 None Full Exam - General 1994 Psychiatric orientation/consciousness Oriented to place: yes 03/25/2014 None Full Exam - General 1994 Psychiatric orientation/consciousness Oriented to time: yes 03/25/2014 None Full Exam - General 1994 Psychiatric orientation/consciousness Level of consciousness: alert 03/25/2014 None Full Exam - General 1994 Musculoskeletal lower extremity Inspection - knee: swelling 03/25/2014 None Full Exam - General 1994 Constitutional general appearance Overall: well developed 03/03/2014 None Full Exam - General 1994 Constitutional general appearance Overall: in no acute distress 03/03/2014 None Full Exam - General 1994 Constitutional general appearance Overall: well nourished 03/03/2014 None Full Exam - General 1994 Eyes pupils and irises Overall: pupils equal, round, reactive to light and accomodation 03/03/2014 None Full Exam - General 1994 Ears/Nose/Throat external ear Overall: normal appearance 03/03/2014 None Full Exam - General 1994 Ears/Nose/Throat external ear Overall: no masses 03/03/2014 None Full Exam - General 1994 Ears/Nose/Throat external ear Overall: normal mastoids 03/03/2014 None Full Exam - General 1994 Ears/Nose/Throat otoscopic exam External auditory canal: a normal exam 03/03/2014 None Full Exam - General 1994 Ears/Nose/Throat otoscopic exam External auditory canal: partial cerumen occlusion 03/03/2014 None Full Exam - General 1995 Ears/Nose/Throat otoscopic exam Tympanic membrane: a normal exam 03/03/2014 None Full Exam - General 1994 Ears/Nose/Throat otoscopic exam Tympanic membrane: not visualized 03/03/2014 None Full Exam - General 1994 Ears/Nose/Throat internal nose Overall: bilateral nasal cavities clear 03/03/2014 None Full Exam - General 1994 Ears/Nose/Throat internal nose Drainage: clear 03/03/2014 None Full Exam - General 1994 Respiratory auscultation Overall: breath sounds clear bilaterally 03/03/2014 None Full Exam - General 1994 Respiratory respiratory effort/rhythm Overall: no retractions 03/03/2014 None Full Exam - General 1994 Respiratory respiratory effort/rhythm Overall: normal rate 03/03/2014 None Full Exam - General 1994 Cardiovascular extremities Edema present: pitting 03/03/2014 None Full Exam - General 1994 Cardiovascular extremities Edema present: severity 1+ - 4 +: 2+ 03/03/2014 None Full Exam - General 1994 Cardiovascular extremities Edema present: to leg 03/03/2014 right >left Full Exam - General 1994 Cardiovascular auscultation of heart Overall: regular rate 03/03/2014 None Full Exam - General 1994 Cardiovascular auscultation of heart Overall: normal heart sounds 03/03/2014 None Full Exam - General 1994 Abdomen abdominal exam Contour: protuberant 03/03/2014 None Full Exam - General 1994 Abdomen abdominal exam Bowel sounds: a normal exam 03/03/2014 None Full Exam - General 1994 Integument inspection of skin Location: right leg 03/03/2014 anterior-erythema with fluid filled blister noted Full Exam - General 1994 Neurologic mental status Overall: alert 03/03/2014 None Full Exam - General 1994 Neurologic mental status Overall: oriented 03/03/2014 None Full Exam - General 1994 Psychiatric orientation/consciousness Oriented to person: yes 03/03/2014 None Full Exam - General 1994 Psychiatric orientation/consciousness Oriented to place: yes 03/03/2014 None Full Exam - General 1994 Psychiatric orientation/consciousness Oriented to time: yes 03/03/2014 None Full Exam - General 1994 Psychiatric orientation/consciousness Level of consciousness: alert 03/03/2014 None Full Exam - General 1994 Constitutional general appearance Overall: well developed 02/13/2014 None Full Exam - General 1994 Constitutional general appearance Overall: in no acute distress 02/13/2014 None Full Exam - General 1994 Constitutional general appearance Overall: well nourished 02/13/2014 None Full Exam - General 1994 Eyes pupils and irises Overall: pupils equal, round, reactive to light and accomodation 02/13/2014 None Full Exam - General 1994 Ears/Nose/Throat external ear Overall: normal appearance 02/13/2014 None Full Exam - General 1994 Ears/Nose/Throat external ear Overall: no masses 02/13/2014 None Full Exam - General 1994 Ears/Nose/Throat external ear Overall: normal mastoids 02/13/2014 None Full Exam - General 1994 Ears/Nose/Throat otoscopic exam External auditory canal: a normal exam 02/13/2014 None Full Exam - General 1994 Ears/Nose/Throat otoscopic exam External auditory canal: partial cerumen occlusion 02/13/2014 None Full Exam - General 1994 Ears/Nose/Throat otoscopic exam Tympanic membrane: a normal exam 02/13/2014 None Full Exam - General 1994 Ears/Nose/Throat otoscopic exam Tympanic membrane: not visualized 02/13/2014 None Full Exam - General 1994 Ears/Nose/Throat internal nose Overall: bilateral nasal cavities clear 02/13/2014 None Full Exam - General 1994 Ears/Nose/Throat internal nose Drainage: clear 02/13/2014 None Full Exam - General 1994 Respiratory auscultation Overall: breath sounds clear bilaterally 02/13/2014 None Full Exam - General 1994 Respiratory respiratory effort/rhythm Overall: no retractions 02/13/2014 None Full Exam - General 1994 Respiratory respiratory effort/rhythm Overall: normal rate 02/13/2014 None Full Exam - General 1994 Cardiovascular extremities Edema present: pitting 02/13/2014 None Full Exam - General 1994 Cardiovascular extremities Edema present: severity 1+ - 4 +: 2+ 02/13/2014 None Full Exam - General 1994 Cardiovascular extremities Edema present: to leg 02/13/2014 right >left Full Exam - General 1994 Abdomen abdominal exam Contour: protuberant 02/13/2014 None Full Exam - General 1994 Abdomen abdominal exam Bowel sounds: a normal exam 02/13/2014 None Full Exam - General 1994 Neurologic mental status Overall: alert 02/13/2014 None Full Exam - General 1994 Neurologic mental status Overall: oriented 02/13/2014 None Full Exam - General 1994 Psychiatric orientation/consciousness Oriented to person: yes 02/13/2014 None Full Exam - General 1994 Psychiatric orientation/consciousness Oriented to place: yes 02/13/2014 None Full Exam - General 1994 Psychiatric orientation/consciousness Oriented to time: yes 02/13/2014 None Full Exam - General 1994 Psychiatric orientation/consciousness Level of consciousness: alert 02/13/2014 None Full Exam - General 1994 Cardiovascular auscultation of heart Overall: regular rate 02/13/2014 None Full Exam - General 1994 Cardiovascular auscultation of heart Overall: normal heart sounds 02/13/2014 None Full Exam - General 1994 Integument inspection of skin Location: right leg 02/13/2014 anterior-erythema Full Exam - General 1994 Constitutional general appearance Overall: well developed 01/27/2014 None Full Exam - General 1994 Constitutional general appearance Overall: in no acute distress 01/27/2014 None Full Exam - General 1994 Constitutional general appearance Overall: well nourished 01/27/2014 None Full Exam - General 1994 Eyes pupils and irises Overall: pupils equal, round, reactive to light and accomodation 01/27/2014 None Full Exam - General 1994 Ears/Nose/Throat external ear Overall: normal appearance 01/27/2014 None Full Exam - General 1994 Ears/Nose/Throat external ear Overall: no masses 01/27/2014 None Full Exam - General 1994 Ears/Nose/Throat external ear Overall: normal mastoids 01/27/2014 None Full Exam - General 1994 Ears/Nose/Throat otoscopic exam External auditory canal: a normal exam 01/27/2014 None Full Exam - General 1994 Ears/Nose/Throat otoscopic exam External auditory canal: partial cerumen occlusion 01/27/2014 None Full Exam - General 1995 Ears/Nose/Throat otoscopic exam Tympanic membrane: a normal exam 01/27/2014 None Full Exam - General 1994 Ears/Nose/Throat otoscopic exam Tympanic membrane: not visualized 01/27/2014 None Full Exam - General 1994 Ears/Nose/Throat internal nose Overall: bilateral nasal cavities clear 01/27/2014 None Full Exam - General 1994 Ears/Nose/Throat internal nose Drainage: clear 01/27/2014 None Full Exam - General 1994 Respiratory auscultation Overall: breath sounds clear bilaterally 01/27/2014 None Full Exam - General 1994 Respiratory respiratory effort/rhythm Overall: no retractions 01/27/2014 None Full Exam - General 1994 Respiratory respiratory effort/rhythm Overall: normal rate 01/27/2014 None Full Exam - General 1994 Cardiovascular extremities Edema present: pitting 01/27/2014 None Full Exam - General 1994 Cardiovascular extremities Edema present: severity 1+ - 4 +: 2+ 01/27/2014 None Full Exam - General 1995 Cardiovascular extremities Edema present: to leg 01/27/2014 right >left Full Exam - General 1994 Cardiovascular auscultation of heart Overall: regular rate 01/27/2014 None Full Exam - General 1994 Cardiovascular auscultation of heart Overall: normal heart sounds 01/27/2014 tachycardia Full Exam - General 1994 Abdomen abdominal exam Contour: protuberant 01/27/2014 None Full Exam - General 1994 Abdomen abdominal exam Bowel sounds: a normal exam 01/27/2014 None Full Exam - General 1994 Neurologic mental status Overall: alert 01/27/2014 None Full Exam - General 1994 Neurologic mental status Overall: oriented 01/27/2014 None Full Exam - General 1994 Psychiatric orientation/consciousness Oriented to person: yes 01/27/2014 None Full Exam - General 1994 Psychiatric orientation/consciousness Oriented to place: yes 01/27/2014 None Full Exam - General 1994 Psychiatric orientation/consciousness Oriented to time: yes 01/27/2014 None Full Exam - General 1994 Psychiatric orientation/consciousness Level of consciousness: alert 01/27/2014 None Full Exam - General 1994 Constitutional general appearance Overall: well developed 12/26/2013 None Full Exam - General 1994 Constitutional general appearance Overall: in no acute distress 12/26/2013 None Full Exam - General 1994 Constitutional general appearance Overall: well nourished 12/26/2013 None Full Exam - General 1994 Eyes pupils and irises Overall: pupils equal, round, reactive to light and accomodation 12/26/2013 None Full Exam - General 1994 Respiratory auscultation Overall: breath sounds clear bilaterally 12/26/2013 None Full Exam - General 1994 Respiratory respiratory effort/rhythm Overall: no retractions 12/26/2013 None Full Exam - General 1994 Respiratory respiratory effort/rhythm Overall: normal rate 12/26/2013 None Full Exam - General 1994 Cardiovascular extremities Edema present: pitting 12/26/2013 None Full Exam - General 1994 Cardiovascular extremities Edema present: severity 1+ - 4 +: 2+ 12/26/2013 None Full Exam - General 1994 Cardiovascular extremities Edema present: to leg 12/26/2013 right >left Full Exam - General 1994 Cardiovascular auscultation of heart Overall: regular rate 12/26/2013 None Full Exam - General 1994 Cardiovascular auscultation of heart Overall: normal heart sounds 12/26/2013 None Full Exam - General 1994 Abdomen abdominal exam Contour: protuberant 12/26/2013 None Full Exam - General 1994 Abdomen abdominal exam Bowel sounds: a normal exam 12/26/2013 None Full Exam - General 1994 Neurologic mental status Overall: alert 12/26/2013 None Full Exam - General 1994 Neurologic mental status Overall: oriented 12/26/2013 None Full Exam - General 1994 Psychiatric orientation/consciousness Oriented to person: yes 12/26/2013 None Full Exam - General 1994 Psychiatric orientation/consciousness Oriented to place: yes 12/26/2013 None Full Exam - General 1994 Psychiatric orientation/consciousness Oriented to time: yes 12/26/2013 None Full Exam - General 1994 Psychiatric orientation/consciousness Level of consciousness: alert 12/26/2013 None Full Exam - General 1994 Integument inspection of skin Location: right leg 12/26/2013 ulcer x 3 right lower anterior leg each approx 1cm x 1cm with fibrous tissue at base of wound. -Improved Full Exam - General 1994 Constitutional general appearance Overall: well developed 12/12/2013 None Full Exam - General 1994 Constitutional general appearance Overall: in no acute distress 12/12/2013 None Full Exam - General 1994 Constitutional general appearance Overall: well nourished 12/12/2013 None Full Exam - General 1994 Eyes pupils and irises Overall: pupils equal, round, reactive to light and accomodation 12/12/2013 None Full Exam - General 1994 Respiratory auscultation Overall: breath sounds clear bilaterally 12/12/2013 None Full Exam - General 1994 Respiratory respiratory effort/rhythm Overall: no retractions 12/12/2013 None Full Exam - General 1994 Respiratory respiratory effort/rhythm Overall: normal rate 12/12/2013 None Full Exam - General 1994 Cardiovascular extremities Edema present: pitting 12/12/2013 None Full Exam - General 1994 Cardiovascular extremities Edema present: severity 1+ - 4 +: 2+ 12/12/2013 None Full Exam - General 1994 Cardiovascular extremities Edema present: to leg 12/12/2013 right >left Full Exam - General 1994 Cardiovascular auscultation of heart Overall: regular rate 12/12/2013 None Full Exam - General 1994 Cardiovascular auscultation of heart Overall: normal heart sounds 12/12/2013 None Full Exam - General 1994 Abdomen abdominal exam Contour: protuberant 12/12/2013 None Full Exam - General 1994 Abdomen abdominal exam Bowel sounds: a normal exam 12/12/2013 None Full Exam - General 1994 Integument inspection of skin Location: right leg 12/12/2013 ulcer x 3 right lower anterior leg each approx 1cm x 1cm with fibrous tissue at base of wound. Cleansed and debrided fibrous tissue to reveal pink wound base. Covered with abx ointment and gauze dressing. Full Exam - General 1994 Neurologic mental status Overall: alert 12/12/2013 None Full Exam - General 1994 Neurologic mental status Overall: oriented 12/12/2013 None Full Exam - General 1994 Psychiatric orientation/consciousness Oriented to person: yes 12/12/2013 None Full Exam - General 1994 Psychiatric orientation/consciousness Oriented to place: yes 12/12/2013 None Full Exam - General 1994 Psychiatric orientation/consciousness Oriented to time: yes 12/12/2013 None Full Exam - General 1994 Psychiatric orientation/consciousness Level of consciousness: alert 12/12/2013 None Full Exam - General 1994 Constitutional general appearance Overall: well developed 11/14/2013 None Full Exam - General 1994 Constitutional general appearance Overall: in no acute distress 11/14/2013 None Full Exam - General 1994 Constitutional general appearance Overall: well nourished 11/14/2013 None Full Exam - General 1994 Eyes pupils and irises Overall: pupils equal, round, reactive to light and accomodation 11/14/2013 None Full Exam - General 1994 Ears/Nose/Throat external ear Overall: normal appearance 11/14/2013 None Full Exam - General 1994 Ears/Nose/Throat external ear Overall: no masses 11/14/2013 None Full Exam - General 1994 Ears/Nose/Throat external ear Overall: normal mastoids 11/14/2013 None Full Exam - General 1994 Ears/Nose/Throat otoscopic exam External auditory canal: a normal exam 11/14/2013 None Full Exam - General 1994 Ears/Nose/Throat otoscopic exam External auditory canal: partial cerumen occlusion 11/14/2013 None Full Exam - General 1995 Ears/Nose/Throat otoscopic exam Tympanic membrane: a normal exam 11/14/2013 None Full Exam - General 1995 Ears/Nose/Throat otoscopic exam Tympanic membrane: not visualized 11/14/2013 None Full Exam - General 1995 Ears/Nose/Throat internal nose Overall: bilateral nasal cavities clear 11/14/2013 None Full Exam - General 1994 Ears/Nose/Throat internal nose Drainage: clear 11/14/2013 None Full Exam - General 1994 Respiratory respiratory effort/rhythm Overall: no retractions 11/14/2013 None Full Exam - General 1994 Respiratory respiratory effort/rhythm Overall: normal rate 11/14/2013 None Full Exam - General 1994 Lymphatic neck nodes Overall: shotty lymphadenopathy 11/14/2013 None Full Exam - General 1994 Neurologic mental status Overall: alert 11/14/2013 None Full Exam - General 1994 Neurologic mental status Overall: oriented 11/14/2013 None Full Exam - General 1994 Psychiatric orientation/consciousness Oriented to person: yes 11/14/2013 None Full Exam - General 1994 Psychiatric orientation/consciousness Oriented to place: yes 11/14/2013 None Full Exam - General 1994 Psychiatric orientation/consciousness Oriented to time: yes 11/14/2013 None Full Exam - General 1994 Psychiatric orientation/consciousness Level of consciousness: alert 11/14/2013 None Full Exam - General 1994 Cardiovascular auscultation of heart Overall: regular rate 11/14/2013 None Full Exam - General 1994 Cardiovascular auscultation of heart Overall: normal heart sounds 11/14/2013 None Full Exam - General 1994 Cardiovascular extremities Overall: no clubbing 11/14/2013 None Full Exam - General 1994 Cardiovascular extremities Edema present: pitting 11/14/2013 None Full Exam - General 1994 Respiratory auscultation Diffuse: expiratory wheezes 11/14/2013 None Full Exam - General 1994 Constitutional general appearance Overall: well developed 10/21/2013 None Full Exam - General 1994 Constitutional general appearance Overall: in no acute distress 10/21/2013 None Full Exam - General 1994 Constitutional general appearance Overall: well nourished 10/21/2013 None Full Exam - General 1994 Eyes pupils and irises Overall: pupils equal, round, reactive to light and accomodation 10/21/2013 None Full Exam - General 1994 Ears/Nose/Throat external ear Overall: normal appearance 10/21/2013 None Full Exam - General 1994 Ears/Nose/Throat external ear Overall: no masses 10/21/2013 None Full Exam - General 1994 Ears/Nose/Throat external ear Overall: normal mastoids 10/21/2013 None Full Exam - General 1994 Ears/Nose/Throat otoscopic exam External auditory canal: a normal exam 10/21/2013 None Full Exam - General 1994 Ears/Nose/Throat otoscopic exam External auditory canal: partial cerumen occlusion 10/21/2013 None Full Exam - General 1994 Ears/Nose/Throat otoscopic exam Tympanic membrane: a normal exam 10/21/2013 None Full Exam - General 1994 Ears/Nose/Throat otoscopic exam Tympanic membrane: not visualized 10/21/2013 None Full Exam - General 1994 Ears/Nose/Throat internal nose Overall: bilateral nasal cavities clear 10/21/2013 None Full Exam - General 1994 Ears/Nose/Throat internal nose Drainage: clear 10/21/2013 None Full Exam - General 1994 Respiratory auscultation Overall: breath sounds clear bilaterally 10/21/2013 None Full Exam - General 1994 Respiratory respiratory effort/rhythm Overall: no retractions 10/21/2013 None Full Exam - General 1994 Respiratory respiratory effort/rhythm Overall: normal rate 10/21/2013 None Full Exam - General 1994 Cardiovascular extremities Edema present: pitting 10/21/2013 None Full Exam - General 1994 Cardiovascular extremities Edema present: severity 1+ - 4 +: 2+ 10/21/2013 None Full Exam - General 1994 Cardiovascular extremities Edema present: to leg 10/21/2013 right >left Full Exam - General 1994 Cardiovascular auscultation of heart Overall: regular rate 10/21/2013 None Full Exam - General 1994 Cardiovascular auscultation of heart Overall: normal heart sounds 10/21/2013 None Full Exam - General 1994 Abdomen abdominal exam Contour: protuberant 10/21/2013 None Full Exam - General 1994 Abdomen abdominal exam Bowel sounds: a normal exam 10/21/2013 None Full Exam - General 1994 Integument inspection of skin Location: right leg 10/21/2013 ulcer right lower leg 1.5cm x 0.5cm with fibrous tissue at base of wound. Cleansed and debrided fibrous tissue to reveal pink wound base. Covered with abx ointment and gauze dressing. --Resolved-no open areas to right lower leg noted Full Exam - General 1994 Neurologic mental status Overall: alert 10/21/2013 None Full Exam - General 1994 Neurologic mental status Overall: oriented 10/21/2013 None Full Exam - General 1994 Psychiatric orientation/consciousness Oriented to person: yes 10/21/2013 None Full Exam - General 1994 Psychiatric orientation/consciousness Oriented to place: yes 10/21/2013 None Full Exam - General 1994 Psychiatric orientation/consciousness Oriented to time: yes 10/21/2013 None Full Exam - General 1994 Psychiatric orientation/consciousness Level of consciousness: alert 10/21/2013 None Full Exam - General 1994 Constitutional general appearance Overall: well developed 10/03/2013 None Full Exam - General 1994 Constitutional general appearance Overall: in no acute distress 10/03/2013 None Full Exam - General 1994 Constitutional general appearance Overall: well nourished 10/03/2013 None Full Exam - General 1994 Eyes pupils and irises Overall: pupils equal, round, reactive to light and accomodation 10/03/2013 None Full Exam - General 1994 Ears/Nose/Throat external ear Overall: normal appearance 10/03/2013 None Full Exam - General 1994 Ears/Nose/Throat external ear Overall: no masses 10/03/2013 None Full Exam - General 1994 Ears/Nose/Throat external ear Overall: normal mastoids 10/03/2013 None Full Exam - General 1994 Ears/Nose/Throat otoscopic exam External auditory canal: a normal exam 10/03/2013 None Full Exam - General 1994 Ears/Nose/Throat otoscopic exam External auditory canal: partial cerumen occlusion 10/03/2013 None Full Exam - General 1994 Ears/Nose/Throat otoscopic exam Tympanic membrane: a normal exam 10/03/2013 None Full Exam - General 1994 Ears/Nose/Throat otoscopic exam Tympanic membrane: not visualized 10/03/2013 None Full Exam - General 1994 Ears/Nose/Throat internal nose Overall: bilateral nasal cavities clear 10/03/2013 None Full Exam - General 1994 Ears/Nose/Throat internal nose Drainage: clear 10/03/2013 None Full Exam - General 1994 Respiratory auscultation Overall: breath sounds clear bilaterally 10/03/2013 None Full Exam - General 1994 Respiratory respiratory effort/rhythm Overall: no retractions 10/03/2013 None Full Exam - General 1994 Respiratory respiratory effort/rhythm Overall: normal rate 10/03/2013 None Full Exam - General 1994 Cardiovascular extremities Edema present: pitting 10/03/2013 None Full Exam - General 1994 Cardiovascular extremities Edema present: severity 1+ - 4 +: 2+ 10/03/2013 None Full Exam - General 1994 Cardiovascular extremities Edema present: to leg 10/03/2013 right >left Full Exam - General 1994 Cardiovascular auscultation of heart Overall: regular rate 10/03/2013 None Full Exam - General 1994 Cardiovascular auscultation of heart Overall: normal heart sounds 10/03/2013 tachycardia Full Exam - General 1994 Abdomen abdominal exam Contour: protuberant 10/03/2013 None Full Exam - General 1994 Abdomen abdominal exam Bowel sounds: a normal exam 10/03/2013 None Full Exam - General 1994 Integument inspection of skin Location: right leg 10/03/2013 ulcer right lower leg 1.5cm x 0.5cm with fibrous tissue at base of wound. Cleansed and debrided fibrous tissue to reveal pink wound base. Covered with abx ointment and gauze dressing. Full Exam - General 1994 Neurologic mental status Overall: alert 10/03/2013 None Full Exam - General 1994 Neurologic mental status Overall: oriented 10/03/2013 None Full Exam - General 1994 Psychiatric orientation/consciousness Oriented to person: yes 10/03/2013 None Full Exam - General 1994 Psychiatric orientation/consciousness Oriented to place: yes 10/03/2013 None Full Exam - General 1994 Psychiatric orientation/consciousness Oriented to time: yes 10/03/2013 None Full Exam - General 1994 Psychiatric orientation/consciousness Level of consciousness: alert 10/03/2013 None Full Exam - Dermatology Integument insp & palp - left lower extremity Lesion: ulcer 09/27/2013 1.5cm x 0.8cm with fibrous tissue at base of wound. Sharp debridement today in the office reveals pink wound bed. Cleansed and covered with telfa and gauze dressing. Full Exam - Dermatology Integument insp & palp - left lower extremity Lesion: ulcer 09/23/2013 1.5cm x 0.8cm with fibrous tissue at base of wound. Sharp debridement today in the office reveals pink wound bed. Cleansed and covered with telfa and gauze dressing. Full Exam - General 1994 Abdomen abdominal exam Bowel sounds: a normal exam 09/20/2013 None Full Exam - General 1994 Neurologic mental status Overall: alert 09/20/2013 None Full Exam - General 1994 Neurologic mental status Overall: oriented 09/20/2013 None Full Exam - General 1994 Psychiatric orientation/consciousness Oriented to person: yes 09/20/2013 None Full Exam - General 1994 Psychiatric orientation/consciousness Oriented to place: yes 09/20/2013 None Full Exam - General 1994 Psychiatric orientation/consciousness Oriented to time: yes 09/20/2013 None Full Exam - General 1994 Psychiatric orientation/consciousness Level of consciousness: alert 09/20/2013 None Full Exam - General 1994 Integument inspection of skin Location: right leg 09/20/2013 ulcer right lower leg 2cm x 1cm with fibrous tissue at base of wound. Cleansed and debrided fibrous tissue to reveal pink wound base. Covered with abx ointment and gauze dressing. Full Exam - General 1994 Constitutional general appearance Overall: well developed 09/20/2013 None Full Exam - General 1994 Constitutional general appearance Overall: in no acute distress 09/20/2013 None Full Exam - General 1994 Constitutional general appearance Overall: well nourished 09/20/2013 None Full Exam - General 1994 Eyes pupils and irises Overall: pupils equal, round, reactive to light and accomodation 09/20/2013 None Full Exam - General 1994 Ears/Nose/Throat external ear Overall: normal appearance 09/20/2013 None Full Exam - General 1994 Ears/Nose/Throat external ear Overall: no masses 09/20/2013 None Full Exam - General 1994 Ears/Nose/Throat external ear Overall: normal mastoids 09/20/2013 None Full Exam - General 1994 Ears/Nose/Throat otoscopic exam External auditory canal: a normal exam 09/20/2013 None Full Exam - General 1994 Ears/Nose/Throat otoscopic exam External auditory canal: partial cerumen occlusion 09/20/2013 None Full Exam - General 1994 Ears/Nose/Throat otoscopic exam Tympanic membrane: a normal exam 09/20/2013 None Full Exam - General 1994 Ears/Nose/Throat otoscopic exam Tympanic membrane: not visualized 09/20/2013 None Full Exam - General 1994 Ears/Nose/Throat internal nose Overall: bilateral nasal cavities clear 09/20/2013 None Full Exam - General 1994 Ears/Nose/Throat internal nose Drainage: clear 09/20/2013 None Full Exam - General 1994 Respiratory auscultation Overall: breath sounds clear bilaterally 09/20/2013 None Full Exam - General 1994 Respiratory respiratory effort/rhythm Overall: no retractions 09/20/2013 None Full Exam - General 1994 Respiratory respiratory effort/rhythm Overall: normal rate 09/20/2013 None Full Exam - General 1994 Cardiovascular extremities Edema present: pitting 09/20/2013 None Full Exam - General 1994 Cardiovascular extremities Edema present: severity 1+ - 4 +: 2+ 09/20/2013 None Full Exam - General 1994 Cardiovascular extremities Edema present: to leg 09/20/2013 right >left Full Exam - General 1994 Cardiovascular auscultation of heart Overall: regular rate 09/20/2013 None Full Exam - General 1994 Cardiovascular auscultation of heart Overall: normal heart sounds 09/20/2013 tachycardia Full Exam - General 1994 Abdomen abdominal exam Contour: protuberant 09/20/2013 None Full Exam - General 1994 Constitutional general appearance Overall: well developed 09/10/2013 None Full Exam - General 1994 Constitutional general appearance Overall: in no acute distress 09/10/2013 None Full Exam - General 1994 Constitutional general appearance Overall: well nourished 09/10/2013 None Full Exam - General 1994 Eyes pupils and irises Overall: pupils equal, round, reactive to light and accomodation 09/10/2013 None Full Exam - General 1994 Ears/Nose/Throat external ear Overall: normal appearance 09/10/2013 None Full Exam - General 1994 Ears/Nose/Throat external ear Overall: no masses 09/10/2013 None Full Exam - General 1994 Ears/Nose/Throat external ear Overall: normal mastoids 09/10/2013 None Full Exam - General 1994 Ears/Nose/Throat otoscopic exam External auditory canal: a normal exam 09/10/2013 None Full Exam - General 1994 Ears/Nose/Throat otoscopic exam External auditory canal: partial cerumen occlusion 09/10/2013 None Full Exam - General 1994 Ears/Nose/Throat otoscopic exam Tympanic membrane: a normal exam 09/10/2013 None Full Exam - General 1994 Ears/Nose/Throat otoscopic exam Tympanic membrane: not visualized 09/10/2013 None Full Exam - General 1994 Ears/Nose/Throat internal nose Overall: bilateral nasal cavities clear 09/10/2013 None Full Exam - General 1994 Ears/Nose/Throat internal nose Drainage: clear 09/10/2013 None Full Exam - General 1994 Respiratory auscultation Overall: breath sounds clear bilaterally 09/10/2013 None Full Exam - General 1994 Respiratory respiratory effort/rhythm Overall: no retractions 09/10/2013 None Full Exam - General 1994 Respiratory respiratory effort/rhythm Overall: normal rate 09/10/2013 None Full Exam - General 1994 Cardiovascular auscultation of heart Overall: regular rate 09/10/2013 None Full Exam - General 1994 Cardiovascular auscultation of heart Overall: normal heart sounds 09/10/2013 tachycardia Full Exam - General 1994 Neurologic mental status Overall: alert 09/10/2013 None Full Exam - General 1994 Neurologic mental status Overall: oriented 09/10/2013 None Full Exam - General 1994 Psychiatric orientation/consciousness Oriented to person: yes 09/10/2013 None Full Exam - General 1994 Psychiatric orientation/consciousness Oriented to place: yes 09/10/2013 None Full Exam - General 1994 Psychiatric orientation/consciousness Oriented to time: yes 09/10/2013 None Full Exam - General 1994 Psychiatric orientation/consciousness Level of consciousness: alert 09/10/2013 None Full Exam - General 1994 Cardiovascular extremities Edema present: pitting 09/10/2013 None Full Exam - General 1994 Cardiovascular extremities Edema present: severity 1+ - 4 +: 2+ 09/10/2013 None Full Exam - General 1994 Cardiovascular extremities Edema present: to leg 09/10/2013 right >left Full Exam - General 1994 Abdomen abdominal exam Contour: protuberant 09/10/2013 None Full Exam - General 1994 Abdomen abdominal exam Bowel sounds: a normal exam 09/10/2013 None Full Exam - General 1994 Integument inspection of skin Location: right leg 09/10/2013 abrasion right lower anterior leg with surrounding erythema Full Exam - General 1994 Constitutional general appearance Nourishment: obese 08/19/2013 None Full Exam - General 1994 Eyes conjunctiva /eyelids Overall: conjunctiva clear 08/19/2013 None Full Exam - General 1994 Eyes conjunctiva /eyelids Overall: cornea clear 08/19/2013 None Full Exam - General 1994 Eyes conjunctiva /eyelids Overall: eyelids normal 08/19/2013 None Full Exam - General 1994 Eyes pupils and irises Overall: pupils equal, round, reactive to light and accomodation 08/19/2013 None Full Exam - General 1994 Ears/Nose/Throat otoscopic exam Overall: external auditory canals clear 08/19/2013 None Full Exam - General 1994 Ears/Nose/Throat otoscopic exam Overall: tympanic membranes clear 08/19/2013 None Full Exam - General 1994 Ears/Nose/Throat lips/teeth/gingiva Overall: benign lips 08/19/2013 None Full Exam - General 1994 Ears/Nose/Throat lips/teeth/gingiva Overall: normal dentition 08/19/2013 None Full Exam - General 1995 Ears/Nose/Throat lips/teeth/gingiva Overall: benign gingiva 08/19/2013 None Full Exam - General 1995 Ears/Nose/Throat lips/teeth/gingiva Overall: no masses 08/19/2013 None Full Exam - General 1995 Ears/Nose/Throat oral cavity/pharynx/larynx Overall: oral mucosa clear 08/19/2013 None Full Exam - General 1994 Ears/Nose/Throat oral cavity/pharynx/larynx Overall: oropharyngeal mucosa clear 08/19/2013 None Full Exam - General 1995 Ears/Nose/Throat oral cavity/pharynx/larynx Overall: no masses 08/19/2013 None Full Exam - General 1994 Respiratory auscultation Overall: breath sounds clear bilaterally 08/19/2013 None Full Exam - General 1994 Respiratory respiratory effort/rhythm Overall: no retractions 08/19/2013 None Full Exam - General 1994 Respiratory respiratory effort/rhythm Overall: normal rate 08/19/2013 None Full Exam - General 1994 Cardiovascular extremities Overall: no clubbing 08/19/2013 None Full Exam - General 1994 Cardiovascular extremities Edema present: bilateral 08/19/2013 ankles Full Exam - General 1994 Abdomen abdominal exam Contour: rounded 08/19/2013 None Full Exam - General 1994 Abdomen abdominal exam Bowel sounds: a normal exam 08/19/2013 None Full Exam - General 1994 Psychiatric orientation/consciousness Overall: oriented to person, place and time 08/19/2013 None Full Exam - General 1994 Constitutional general appearance Nourishment: obese 08/12/2013 None Full Exam - General 1994 Eyes conjunctiva /eyelids Overall: conjunctiva clear 08/12/2013 None Full Exam - General 1994 Eyes conjunctiva /eyelids Overall: cornea clear 08/12/2013 None Full Exam - General 1994 Eyes conjunctiva /eyelids Overall: eyelids normal 08/12/2013 None Full Exam - General 1994 Eyes pupils and irises Overall: pupils equal, round, reactive to light and accomodation 08/12/2013 None Full Exam - General 1994 Ears/Nose/Throat otoscopic exam Overall: external auditory canals clear 08/12/2013 None Full Exam - General 1994 Ears/Nose/Throat otoscopic exam Overall: tympanic membranes clear 08/12/2013 None Full Exam - General 1994 Ears/Nose/Throat lips/teeth/gingiva Overall: benign lips 08/12/2013 None Full Exam - General 1994 Ears/Nose/Throat lips/teeth/gingiva Overall: normal dentition 08/12/2013 None Full Exam - General 1994 Ears/Nose/Throat lips/teeth/gingiva Overall: benign gingiva 08/12/2013 None Full Exam - General 1994 Ears/Nose/Throat lips/teeth/gingiva Overall: no masses 08/12/2013 None Full Exam - General 1994 Ears/Nose/Throat oral cavity/pharynx/larynx Overall: oral mucosa clear 08/12/2013 None Full Exam - General 1994 Ears/Nose/Throat oral cavity/pharynx/larynx Overall: oropharyngeal mucosa clear 08/12/2013 None Full Exam - General 1994 Ears/Nose/Throat oral cavity/pharynx/larynx Overall: no masses 08/12/2013 None Full Exam - General 1994 Respiratory auscultation Overall: breath sounds clear bilaterally 08/12/2013 None Full Exam - General 1994 Respiratory respiratory effort/rhythm Overall: no retractions 08/12/2013 None Full Exam - General 1994 Respiratory respiratory effort/rhythm Overall: normal rate 08/12/2013 None Full Exam - General 1994 Cardiovascular extremities Overall: no clubbing 08/12/2013 None Full Exam - General 1994 Cardiovascular extremities Edema present: bilateral 08/12/2013 ankles Full Exam - General 1994 Abdomen abdominal exam Contour: rounded 08/12/2013 None Full Exam - General 1994 Abdomen abdominal exam Bowel sounds: a normal exam 08/12/2013 None Full Exam - General 1994 Psychiatric orientation/consciousness Overall: oriented to person, place and time 08/12/2013 None Full Exam - General 1994 Musculoskeletal spine, ribs and pelvis Sacroiliac joints: tender left sacroiliac joint 08/12/2013 None Full Exam - General 1994 Musculoskeletal spine, ribs and pelvis Sacroiliac joints: tender right sacroiliac joint 08/12/2013 None Full Exam - General 1994 Eyes pupils and irises Overall: pupils equal, round, reactive to light and accomodation 08/01/2013 None Full Exam - General 1994 Ears/Nose/Throat otoscopic exam Overall: external auditory canals clear 08/01/2013 None Full Exam - General 1994 Ears/Nose/Throat otoscopic exam Overall: tympanic membranes clear 08/01/2013 None Full Exam - General 1994 Ears/Nose/Throat lips/teeth/gingiva Overall: benign lips 08/01/2013 None Full Exam - General 1994 Ears/Nose/Throat lips/teeth/gingiva Overall: normal dentition 08/01/2013 None Full Exam - General 1994 Ears/Nose/Throat lips/teeth/gingiva Overall: benign gingiva 08/01/2013 None Full Exam - General 1994 Ears/Nose/Throat lips/teeth/gingiva Overall: no masses 08/01/2013 None Full Exam - General 1994 Ears/Nose/Throat oral cavity/pharynx/larynx Overall: oral mucosa clear 08/01/2013 None Full Exam - General 1994 Ears/Nose/Throat oral cavity/pharynx/larynx Overall: oropharyngeal mucosa clear 08/01/2013 None Full Exam - General 1995 Ears/Nose/Throat oral cavity/pharynx/larynx Overall: no masses 08/01/2013 None Full Exam - General 1994 Respiratory auscultation Overall: breath sounds clear bilaterally 08/01/2013 None Full Exam - General 1994 Respiratory respiratory effort/rhythm Overall: no retractions 08/01/2013 None Full Exam - General 1994 Respiratory respiratory effort/rhythm Overall: normal rate 08/01/2013 None Full Exam - General 1994 Constitutional general appearance Nourishment: obese 08/01/2013 None Full Exam - General 1994 Eyes conjunctiva /eyelids Overall: conjunctiva clear 08/01/2013 None Full Exam - General 1994 Eyes conjunctiva /eyelids Overall: cornea clear 08/01/2013 None Full Exam - General 1994 Eyes conjunctiva /eyelids Overall: eyelids normal 08/01/2013 None Full Exam - General 1994 Cardiovascular extremities Overall: no clubbing 08/01/2013 None Full Exam - General 1994 Cardiovascular extremities Edema present: non-pitting 08/01/2013 None Full Exam - General 1994 Cardiovascular extremities Edema present: bilateral 08/01/2013 ankles Full Exam - General 1994 Abdomen abdominal exam Contour: rounded 08/01/2013 None Full Exam - General 1994 Abdomen abdominal exam Bowel sounds: a normal exam 08/01/2013 None Full Exam - General 1994 Psychiatric orientation/consciousness Overall: oriented to person, place and time 08/01/2013 None Full Exam - Dermatology Constitutional general appearance Overall: well developed 07/19/2013 None Full Exam - Dermatology Constitutional general appearance Overall: in no acute distress 07/19/2013 None Full Exam - Dermatology Psychiatric orientation Overall: oriented to person, place and time 07/19/2013 None Full Exam - Dermatology Integument insp & palp - right lower extremity Location: on the foot 07/19/2013 2cm blister right anterior foot Full Exam - General 1994 Constitutional general appearance Overall: well developed 07/15/2013 None Full Exam - General 1994 Constitutional general appearance Overall: in no acute distress 07/15/2013 None Full Exam - General 1994 Constitutional general appearance Overall: well nourished 07/15/2013 None Full Exam - General 1994 Eyes pupils and irises Overall: pupils equal, round, reactive to light and accomodation 07/15/2013 None Full Exam - General 1994 Ears/Nose/Throat external ear Overall: normal appearance 07/15/2013 None Full Exam - General 1995 Ears/Nose/Throat external ear Overall: no masses 07/15/2013 None Full Exam - General 1995 Ears/Nose/Throat external ear Overall: normal mastoids 07/15/2013 None Full Exam - General 1994 Ears/Nose/Throat otoscopic exam External auditory canal: a normal exam 07/15/2013 None Full Exam - General 1995 Ears/Nose/Throat otoscopic exam External auditory canal: partial cerumen occlusion 07/15/2013 None Full Exam - General 1994 Ears/Nose/Throat otoscopic exam Tympanic membrane: a normal exam 07/15/2013 None Full Exam - General 1995 Ears/Nose/Throat otoscopic exam Tympanic membrane: not visualized 07/15/2013 None Full Exam - General 1994 Respiratory auscultation Overall: breath sounds clear bilaterally 07/15/2013 None Full Exam - General 1994 Respiratory respiratory effort/rhythm Overall: no retractions 07/15/2013 None Full Exam - General 1994 Respiratory respiratory effort/rhythm Overall: normal rate 07/15/2013 None Full Exam - General 1994 Cardiovascular auscultation of heart Overall: regular rate 07/15/2013 None Full Exam - General 1994 Cardiovascular auscultation of heart Overall: normal heart sounds 07/15/2013 tachycardia Full Exam - General 1994 Cardiovascular auscultation of heart Overall: no murmurs 07/15/2013 None Full Exam - General 1994 Neurologic mental status Overall: alert 07/15/2013 None Full Exam - General 1994 Neurologic mental status Overall: oriented 07/15/2013 None Full Exam - General 1994 Psychiatric orientation/consciousness Oriented to person: yes 07/15/2013 None Full Exam - General 1994 Psychiatric orientation/consciousness Oriented to place: yes 07/15/2013 None Full Exam - General 1994 Psychiatric orientation/consciousness Oriented to time: yes 07/15/2013 None Full Exam - General 1994 Psychiatric orientation/consciousness Level of consciousness: alert 07/15/2013 None Full Exam - General 1994 Lymphatic neck nodes Overall: anterior cervical chain benign 07/15/2013 None Full Exam - General 1994 Lymphatic neck nodes Overall: posterior cervical chain benign 07/15/2013 None Full Exam - General 1994 Integument inspection of skin Location: right leg 07/15/2013 None Full Exam - General 1994 Integument inspection of skin Dermatitis: erythema 07/15/2013 None Full Exam - General 1994 Integument inspection of skin Rash/Lesions: ulceration 07/15/2013 ulcer right anterior lower leg 2cm x 1cm with several tiny abrasions with surrouding erythema. Full Exam - General 1994 Constitutional general appearance Nourishment: obese 06/27/2013 None Full Exam - General 1994 Eyes conjunctiva /eyelids Overall: conjunctiva clear 06/27/2013 None Full Exam - General 1994 Eyes conjunctiva /eyelids Overall: cornea clear 06/27/2013 None Full Exam - General 1994 Eyes conjunctiva /eyelids Overall: eyelids normal 06/27/2013 None Full Exam - General 1994 Eyes pupils and irises Overall: pupils equal, round, reactive to light and accomodation 06/27/2013 None Full Exam - General 1994 Ears/Nose/Throat otoscopic exam Overall: external auditory canals clear 06/27/2013 None Full Exam - General 1994 Ears/Nose/Throat otoscopic exam Overall: tympanic membranes clear 06/27/2013 None Full Exam - General 1994 Ears/Nose/Throat lips/teeth/gingiva Overall: benign lips 06/27/2013 None Full Exam - General 1994 Ears/Nose/Throat lips/teeth/gingiva Overall: normal dentition 06/27/2013 None Full Exam - General 1994 Ears/Nose/Throat lips/teeth/gingiva Overall: benign gingiva 06/27/2013 None Full Exam - General 1994 Ears/Nose/Throat lips/teeth/gingiva Overall: no masses 06/27/2013 None Full Exam - General 1994 Ears/Nose/Throat oral cavity/pharynx/larynx Overall: oral mucosa clear 06/27/2013 None Full Exam - General 1994 Ears/Nose/Throat oral cavity/pharynx/larynx Overall: oropharyngeal mucosa clear 06/27/2013 None Full Exam - General 1994 Ears/Nose/Throat oral cavity/pharynx/larynx Overall: no masses 06/27/2013 None Full Exam - General 1994 Respiratory auscultation Overall: breath sounds clear bilaterally 06/27/2013 None Full Exam - General 1994 Respiratory respiratory effort/rhythm Overall: no retractions 06/27/2013 None Full Exam - General 1994 Respiratory respiratory effort/rhythm Overall: normal rate 06/27/2013 None Full Exam - General 1994 Cardiovascular extremities Overall: no clubbing 06/27/2013 None Full Exam - General 1994 Cardiovascular extremities Edema present: non-pitting 06/27/2013 None Full Exam - General 1994 Cardiovascular extremities Edema present: bilateral 06/27/2013 ankles Full Exam - General 1994 Abdomen abdominal exam Contour: rounded 06/27/2013 None Full Exam - General 1994 Abdomen abdominal exam Bowel sounds: a normal exam 06/27/2013 None Full Exam - General 1994 Psychiatric orientation/consciousness Overall: oriented to person, place and time 06/27/2013 None Full Exam - General 1994 Musculoskeletal spine, ribs and pelvis Sacroiliac joints: tender right sacroiliac joint 06/27/2013 None Full Exam - General 1994 Musculoskeletal spine, ribs and pelvis Sacroiliac joints: tender left sacroiliac joint 06/27/2013 None Full Exam - General 1994 Constitutional general appearance Overall: well developed 06/10/2013 None Full Exam - General 1994 Constitutional general appearance Overall: in no acute distress 06/10/2013 None Full Exam - General 1994 Constitutional general appearance Overall: well nourished 06/10/2013 None Full Exam - General 1994 Eyes pupils and irises Overall: pupils equal, round, reactive to light and accomodation 06/10/2013 None Full Exam - General 1994 Ears/Nose/Throat external ear Overall: normal appearance 06/10/2013 None Full Exam - General 1994 Ears/Nose/Throat external ear Overall: no masses 06/10/2013 None Full Exam - General 1994 Ears/Nose/Throat external ear Overall: normal mastoids 06/10/2013 None Full Exam - General 1994 Ears/Nose/Throat otoscopic exam External auditory canal: a normal exam 06/10/2013 None Full Exam - General 1994 Ears/Nose/Throat otoscopic exam External auditory canal: partial cerumen occlusion 06/10/2013 None Full Exam - General 1994 Ears/Nose/Throat otoscopic exam Tympanic membrane: a normal exam 06/10/2013 None Full Exam - General 1994 Ears/Nose/Throat otoscopic exam Tympanic membrane: not visualized 06/10/2013 None Full Exam - General 1995 Ears/Nose/Throat internal nose Overall: bilateral nasal cavities clear 06/10/2013 None Full Exam - General 1995 Ears/Nose/Throat internal nose Turbinates: erythema 06/10/2013 None Full Exam - General 1995 Ears/Nose/Throat internal nose Drainage: clear 06/10/2013 None Full Exam - General 1994 Respiratory auscultation Overall: breath sounds clear bilaterally 06/10/2013 None Full Exam - General 1994 Respiratory respiratory effort/rhythm Overall: no retractions 06/10/2013 None Full Exam - General 1994 Respiratory respiratory effort/rhythm Overall: normal rate 06/10/2013 None Full Exam - General 1994 Cardiovascular auscultation of heart Overall: regular rate 06/10/2013 None Full Exam - General 1994 Cardiovascular auscultation of heart Overall: normal heart sounds 06/10/2013 tachycardia Full Exam - General 1994 Cardiovascular auscultation of heart Overall: no murmurs 06/10/2013 None Full Exam - General 1994 Lymphatic neck nodes Overall: shotty lymphadenopathy 06/10/2013 None Full Exam - General 1994 Neurologic mental status Overall: alert 06/10/2013 None Full Exam - General 1994 Neurologic mental status Overall: oriented 06/10/2013 None Full Exam - General 1994 Psychiatric orientation/consciousness Oriented to person: yes 06/10/2013 None Full Exam - General 1994 Psychiatric orientation/consciousness Oriented to place: yes 06/10/2013 None Full Exam - General 1994 Psychiatric orientation/consciousness Oriented to time: yes 06/10/2013 None Full Exam - General 1994 Psychiatric orientation/consciousness Level of consciousness: alert 06/10/2013 None Full Exam - General 1994 Constitutional general appearance Overall: well developed 05/07/2013 None Full Exam - General 1994 Constitutional general appearance Overall: in no acute distress 05/07/2013 None Full Exam - General 1994 Constitutional general appearance Overall: well nourished 05/07/2013 None Full Exam - General 1994 Eyes pupils and irises Overall: pupils equal, round, reactive to light and accomodation 05/07/2013 None Full Exam - General 1994 Ears/Nose/Throat external ear Overall: normal appearance 05/07/2013 None Full Exam - General 1994 Ears/Nose/Throat external ear Overall: no masses 05/07/2013 None Full Exam - General 1994 Ears/Nose/Throat external ear Overall: normal mastoids 05/07/2013 None Full Exam - General 1995 Ears/Nose/Throat otoscopic exam External auditory canal: a normal exam 05/07/2013 None Full Exam - General 1995 Ears/Nose/Throat otoscopic exam External auditory canal: partial cerumen occlusion 05/07/2013 None Full Exam - General 1995 Ears/Nose/Throat otoscopic exam Tympanic membrane: a normal exam 05/07/2013 None Full Exam - General 1995 Ears/Nose/Throat otoscopic exam Tympanic membrane: not visualized 05/07/2013 None Full Exam - General 1994 Ears/Nose/Throat internal nose Overall: bilateral nasal cavities clear 05/07/2013 None Full Exam - General 1994 Ears/Nose/Throat internal nose Turbinates: erythema 05/07/2013 None Full Exam - General 1994 Ears/Nose/Throat internal nose Drainage: clear 05/07/2013 None Full Exam - General 1994 Respiratory respiratory effort/rhythm Overall: no retractions 05/07/2013 None Full Exam - General 1994 Respiratory respiratory effort/rhythm Overall: normal rate 05/07/2013 None Full Exam - General 1994 Cardiovascular auscultation of heart Overall: regular rate 05/07/2013 None Full Exam - General 1994 Cardiovascular auscultation of heart Overall: normal heart sounds 05/07/2013 tachycardia Full Exam - General 1994 Cardiovascular auscultation of heart Overall: no murmurs 05/07/2013 None Full Exam - General 1994 Lymphatic neck nodes Overall: shotty lymphadenopathy 05/07/2013 None Full Exam - General 1994 Neurologic mental status Overall: alert 05/07/2013 None Full Exam - General 1994 Neurologic mental status Overall: oriented 05/07/2013 None Full Exam - General 1994 Psychiatric orientation/consciousness Oriented to person: yes 05/07/2013 None Full Exam - General 1994 Psychiatric orientation/consciousness Oriented to place: yes 05/07/2013 None Full Exam - General 1994 Psychiatric orientation/consciousness Oriented to time: yes 05/07/2013 None Full Exam - General 1994 Psychiatric orientation/consciousness Level of consciousness: alert 05/07/2013 None Full Exam - General 1994 Respiratory auscultation Upper lung field: expiratory wheezes 05/07/2013 None Full Exam - General 1994 Respiratory auscultation Lower lung field: expiratory wheezes 05/07/2013 None Full Exam - General 1994 Musculoskeletal spine, ribs and pelvis Sacroiliac joints: tender left sacroiliac joint 05/07/2013 None Full Exam - General 1994 Constitutional general appearance Overall: well developed 04/16/2013 None Full Exam - General 1995 Constitutional general appearance Overall: in no acute distress 04/16/2013 None Full Exam - General 1995 Constitutional general appearance Overall: well nourished 04/16/2013 None Full Exam - General 1995 Eyes pupils and irises Overall: pupils equal, round, reactive to light and accomodation 04/16/2013 None Full Exam - General 1995 Ears/Nose/Throat external ear Overall: normal appearance 04/16/2013 None Full Exam - General 1995 Ears/Nose/Throat external ear Overall: no masses 04/16/2013 None Full Exam - General 1995 Ears/Nose/Throat external ear Overall: normal mastoids 04/16/2013 None Full Exam - General 1995 Ears/Nose/Throat otoscopic exam External auditory canal: a normal exam 04/16/2013 None Full Exam - General 1995 Ears/Nose/Throat otoscopic exam External auditory canal: partial cerumen occlusion 04/16/2013 None Full Exam - General 1995 Ears/Nose/Throat otoscopic exam Tympanic membrane: a normal exam 04/16/2013 None Full Exam - General 1995 Ears/Nose/Throat otoscopic exam Tympanic membrane: not visualized 04/16/2013 None Full Exam - General 1995 Ears/Nose/Throat internal nose Overall: bilateral nasal cavities clear 04/16/2013 None Full Exam - General 1995 Ears/Nose/Throat internal nose Turbinates: erythema 04/16/2013 None Full Exam - General 1995 Ears/Nose/Throat internal nose Drainage: clear 04/16/2013 None Full Exam - General 1994 Respiratory auscultation Overall: breath sounds clear bilaterally 04/16/2013 None Full Exam - General 1994 Respiratory respiratory effort/rhythm Overall: no retractions 04/16/2013 None Full Exam - General 1994 Respiratory respiratory effort/rhythm Overall: normal rate 04/16/2013 None Full Exam - General 1994 Cardiovascular auscultation of heart Overall: regular rate 04/16/2013 None Full Exam - General 1994 Cardiovascular auscultation of heart Overall: normal heart sounds 04/16/2013 tachycardia Full Exam - General 1994 Cardiovascular auscultation of heart Overall: no murmurs 04/16/2013 None Full Exam - General 1994 Lymphatic neck nodes Overall: shotty lymphadenopathy 04/16/2013 None Full Exam - General 1994 Neurologic mental status Overall: alert 04/16/2013 None Full Exam - General 1994 Neurologic mental status Overall: oriented 04/16/2013 None Full Exam - General 1994 Psychiatric orientation/consciousness Oriented to person: yes 04/16/2013 None Full Exam - General 1994 Psychiatric orientation/consciousness Oriented to place: yes 04/16/2013 None Full Exam - General 1994 Psychiatric orientation/consciousness Oriented to time: yes 04/16/2013 None Full Exam - General 1994 Psychiatric orientation/consciousness Level of consciousness: alert 04/16/2013 None Full Exam - General 1994 Constitutional general appearance Nourishment: obese 03/21/2013 None Full Exam - General 1995 Eyes conjunctiva /eyelids Overall: conjunctiva clear 03/21/2013 None Full Exam - General 1995 Eyes conjunctiva /eyelids Overall: cornea clear 03/21/2013 None Full Exam - General 1994 Eyes conjunctiva /eyelids Overall: eyelids normal 03/21/2013 None Full Exam - General 1994 Eyes pupils and irises Overall: pupils equal, round, reactive to light and accomodation 03/21/2013 None Full Exam - General 1994 Ears/Nose/Throat otoscopic exam Overall: external auditory canals clear 03/21/2013 None Full Exam - General 1995 Ears/Nose/Throat otoscopic exam Overall: tympanic membranes clear 03/21/2013 None Full Exam - General 1995 Ears/Nose/Throat lips/teeth/gingiva Overall: benign lips 03/21/2013 None Full Exam - General 1995 Ears/Nose/Throat lips/teeth/gingiva Overall: normal dentition 03/21/2013 None Full Exam - General 1995 Ears/Nose/Throat lips/teeth/gingiva Overall: benign gingiva 03/21/2013 None Full Exam - General 1995 Ears/Nose/Throat lips/teeth/gingiva Overall: no masses 03/21/2013 None Full Exam - General 1995 Ears/Nose/Throat oral cavity/pharynx/larynx Overall: oral mucosa clear 03/21/2013 None Full Exam - General 1995 Ears/Nose/Throat oral cavity/pharynx/larynx Overall: oropharyngeal mucosa clear 03/21/2013 None Full Exam - General 1995 Ears/Nose/Throat oral cavity/pharynx/larynx Overall: no masses 03/21/2013 None Full Exam - General 1994 Respiratory auscultation Overall: breath sounds clear bilaterally 03/21/2013 None Full Exam - General 1994 Respiratory respiratory effort/rhythm Overall: no retractions 03/21/2013 None Full Exam - General 1994 Respiratory respiratory effort/rhythm Overall: normal rate 03/21/2013 None Full Exam - General 1994 Cardiovascular extremities Overall: no clubbing 03/21/2013 None Full Exam - General 1994 Cardiovascular extremities Edema present: non-pitting 03/21/2013 None Full Exam - General 1994 Cardiovascular extremities Edema present: bilateral 03/21/2013 ankles Full Exam - General 1994 Abdomen abdominal exam Contour: rounded 03/21/2013 None Full Exam - General 1994 Abdomen abdominal exam Bowel sounds: a normal exam 03/21/2013 None Full Exam - General 1994 Abdomen abdominal exam Lower quadrant: tender to palpation 03/21/2013 None Full Exam - General 1994 Integument inspection of skin Dermatitis: dryness/ flaking 03/21/2013 None Full Exam - General 1994 Integument inspection of skin Location: left foot 03/21/2013 None Full Exam - General 1994 Integument inspection of skin Location: right foot 03/21/2013 None Full Exam - General 1994 Integument inspection of skin Overall: no rash, lesions 03/21/2013 None Full Exam - General 1994 Psychiatric orientation/consciousness Overall: oriented to person, place and time 03/21/2013 None Full Exam - General 1994 Constitutional general appearance Nourishment: obese 02/12/2013 None Full Exam - General 1994 Eyes conjunctiva /eyelids Overall: conjunctiva clear 02/12/2013 None Full Exam - General 1994 Eyes conjunctiva /eyelids Overall: eyelids normal 02/12/2013 None Full Exam - General 1994 Eyes conjunctiva /eyelids Overall: cornea clear 02/12/2013 None Full Exam - General 1994 Eyes pupils and irises Overall: pupils equal, round, reactive to light and accomodation 02/12/2013 None Full Exam - General 1994 Ears/Nose/Throat otoscopic exam Overall: tympanic membranes clear 02/12/2013 None Full Exam - General 1994 Ears/Nose/Throat otoscopic exam Overall: external auditory canals clear 02/12/2013 None Full Exam - General 1994 Ears/Nose/Throat lips/teeth/gingiva Overall: benign gingiva 02/12/2013 None Full Exam - General 1995 Ears/Nose/Throat lips/teeth/gingiva Overall: no masses 02/12/2013 None Full Exam - General 1995 Ears/Nose/Throat lips/teeth/gingiva Overall: normal dentition 02/12/2013 None Full Exam - General 1995 Ears/Nose/Throat lips/teeth/gingiva Overall: benign lips 02/12/2013 None Full Exam - General 1995 Ears/Nose/Throat oral cavity/pharynx/larynx Overall: oropharyngeal mucosa clear 02/12/2013 None Full Exam - General 1995 Ears/Nose/Throat oral cavity/pharynx/larynx Overall: no masses 02/12/2013 None Full Exam - General 1995 Ears/Nose/Throat oral cavity/pharynx/larynx Overall: oral mucosa clear 02/12/2013 None Full Exam - General 1994 Respiratory auscultation Overall: breath sounds clear bilaterally 02/12/2013 None Full Exam - General 1994 Respiratory respiratory effort/rhythm Overall: normal rate 02/12/2013 None Full Exam - General 1994 Respiratory respiratory effort/rhythm Overall: no retractions 02/12/2013 None Full Exam - General 1994 Cardiovascular extremities Overall: no clubbing 02/12/2013 None Full Exam - General 1994 Cardiovascular extremities Edema present: non-pitting 02/12/2013 None Full Exam - General 1994 Cardiovascular extremities Edema present: bilateral 02/12/2013 ankles Full Exam - General 1994 Abdomen abdominal exam Contour: rounded 02/12/2013 None Full Exam - General 1994 Abdomen abdominal exam Bowel sounds: a normal exam 02/12/2013 None Full Exam - General 1994 Abdomen abdominal exam Lower quadrant: tender to palpation 02/12/2013 None Full Exam - General 1994 Integument inspection of skin Dermatitis: dryness/ flaking 02/12/2013 None Full Exam - General 1994 Integument inspection of skin Location: left foot 02/12/2013 None Full Exam - General 1994 Integument inspection of skin Location: right foot 02/12/2013 None Full Exam - General 1994 Integument inspection of skin Overall: no rash, lesions 02/12/2013 None Full Exam - General 1994 Psychiatric orientation/consciousness Overall: oriented to person, place and time 02/12/2013 None Full Exam - General 1994 Constitutional general appearance Overall: well developed 02/04/2013 None Full Exam - General 1994 Constitutional general appearance Overall: in no acute distress 02/04/2013 None Full Exam - General 1994 Constitutional general appearance Overall: well nourished 02/04/2013 None Full Exam - General 1994 Eyes pupils and irises Overall: pupils equal, round, reactive to light and accomodation 02/04/2013 None Full Exam - General 1994 Ears/Nose/Throat external ear Overall: normal appearance 02/04/2013 None Full Exam - General 1994 Ears/Nose/Throat external ear Overall: no masses 02/04/2013 None Full Exam - General 1995 Ears/Nose/Throat external ear Overall: normal mastoids 02/04/2013 None Full Exam - General 1995 Ears/Nose/Throat otoscopic exam External auditory canal: a normal exam 02/04/2013 None Full Exam - General 1995 Ears/Nose/Throat otoscopic exam External auditory canal: partial cerumen occlusion 02/04/2013 None Full Exam - General 1995 Ears/Nose/Throat otoscopic exam Tympanic membrane: a normal exam 02/04/2013 None Full Exam - General 1995 Ears/Nose/Throat otoscopic exam Tympanic membrane: not visualized 02/04/2013 None Full Exam - General 1995 Ears/Nose/Throat internal nose Overall: bilateral nasal cavities clear 02/04/2013 None Full Exam - General 1995 Ears/Nose/Throat internal nose Turbinates: erythema 02/04/2013 None Full Exam - General 1995 Ears/Nose/Throat internal nose Drainage: clear 02/04/2013 None Full Exam - General 1994 Respiratory auscultation Overall: breath sounds clear bilaterally 02/04/2013 None Full Exam - General 1994 Respiratory respiratory effort/rhythm Overall: no retractions 02/04/2013 None Full Exam - General 1994 Respiratory respiratory effort/rhythm Overall: normal rate 02/04/2013 None Full Exam - General 1994 Cardiovascular auscultation of heart Overall: regular rate 02/04/2013 None Full Exam - General 1994 Cardiovascular auscultation of heart Overall: normal heart sounds 02/04/2013 tachycardia Full Exam - General 1994 Cardiovascular auscultation of heart Overall: no murmurs 02/04/2013 None Full Exam - General 1994 Lymphatic neck nodes Overall: shotty lymphadenopathy 02/04/2013 None Full Exam - General 1994 Neurologic mental status Overall: alert 02/04/2013 None Full Exam - General 1994 Neurologic mental status Overall: oriented 02/04/2013 None Full Exam - General 1994 Psychiatric orientation/consciousness Oriented to person: yes 02/04/2013 None Full Exam - General 1994 Psychiatric orientation/consciousness Oriented to place: yes 02/04/2013 None Full Exam - General 1994 Psychiatric orientation/consciousness Oriented to time: yes 02/04/2013 None Full Exam - General 1994 Psychiatric orientation/consciousness Level of consciousness: alert 02/04/2013 None Full Exam - General 1994 Constitutional general appearance Development: well developed 01/17/2013 None Full Exam - General 1994 Constitutional general appearance Development: appears stated age 0801/17/2013 None Full Exam - General 1994 Eyes conjunctiva /eyelids Overall: conjunctiva clear 01/17/2013 None Full Exam - General 1994 Eyes pupils and irises Overall: pupils equal, round, reactive to light and accomodation 01/17/2013 None Full Exam - General 1994 Ears/Nose/Throat otoscopic exam External auditory canal: a normal exam 01/17/2013 None Full Exam - General 1994 Ears/Nose/Throat otoscopic exam Tympanic membrane: air- fluid level 01/17/2013 None Full Exam - General 1995 Ears/Nose/Throat oral cavity/pharynx/larynx Overall: oral mucosa clear 01/17/2013 None Full Exam - General 1994 Respiratory auscultation Overall: breath sounds clear bilaterally 01/17/2013 None Full Exam - General 1994 Respiratory auscultation Basilar: diminished 01/17/2013 None Full Exam - General 1994 Respiratory respiratory effort/rhythm Overall: no retractions 01/17/2013 None Full Exam - General 1994 Respiratory respiratory effort/rhythm Overall: normal rate 01/17/2013 None Full Exam - General 1994 Cardiovascular extremities Edema present: pitting 01/17/2013 None Full Exam - General 1994 Cardiovascular extremities Edema present: bilateral 01/17/2013 None Full Exam - General 1994 Cardiovascular auscultation of heart Rate: regular rate 01/17/2013 None Full Exam - General 1994 Cardiovascular auscultation of heart Rhythm: regular rhythm 01/17/2013 None Full Exam - General 1994 Cardiovascular auscultation of heart S1: a normal exam 01/17/2013 None Full Exam - General 1994 Cardiovascular auscultation of heart S2: a normal exam 01/17/2013 None Full Exam - General 1994 Abdomen abdominal exam Contour: rounded 01/17/2013 None Full Exam - General 1994 Abdomen abdominal exam Bowel sounds: a normal exam 01/17/2013 None Full Exam - General 1994 Lymphatic neck nodes Overall: anterior cervical chain benign 01/17/2013 None Full Exam - General 1994 Neurologic deep tendon reflexes Overall: deep tendon reflexes intact 01/17/2013 None Full Exam - General 1994 Neurologic cranial nerves Overall: crainial nerves 2 - 12 grossly intact 01/17/2013 None Full Exam - General 1994 Psychiatric orientation/consciousness Overall: oriented to person, place and time 01/17/2013 None Full Exam - General 1994 Psychiatric mood and affect Mood: depressed 01/17/2013 None Full Exam - General 1994 Psychiatric mood and affect Affect: mood congruent 01/17/2013 None Full Exam - General 1994 Psychiatric mood and affect Appropriateness: appropriate emotional responses 01/17/2013 None Full Exam - General 1994 Cardiovascular extremities Edema present: anasarca 01/17/2013 None Full Exam - General 1994 Constitutional general appearance Development: well developed 12/31/2012 None Full Exam - General 1994 Constitutional general appearance Development: appears stated age 0812/31/2012 None Full Exam - General 1994 Eyes conjunctiva /eyelids Overall: conjunctiva clear 12/31/2012 None Full Exam - General 1994 Eyes pupils and irises Overall: pupils equal, round, reactive to light and accomodation 12/31/2012 None Full Exam - General 1994 Ears/Nose/Throat otoscopic exam External auditory canal: a normal exam 12/31/2012 None Full Exam - General 1994 Ears/Nose/Throat otoscopic exam Tympanic membrane: air- fluid level 12/31/2012 None Full Exam - General 1994 Ears/Nose/Throat oral cavity/pharynx/larynx Overall: oral mucosa clear 12/31/2012 None Full Exam - General 1994 Respiratory auscultation Overall: breath sounds clear bilaterally 12/31/2012 None Full Exam - General 1994 Respiratory auscultation Basilar: diminished 12/31/2012 None Full Exam - General 1994 Respiratory respiratory effort/rhythm Overall: no retractions 12/31/2012 None Full Exam - General 1994 Respiratory respiratory effort/rhythm Overall: normal rate 12/31/2012 None Full Exam - General 1994 Cardiovascular extremities Edema present: pitting 12/31/2012 None Full Exam - General 1994 Cardiovascular extremities Edema present: severity 1+ - 4 +: _ 12/31/2012 None Full Exam - General 1994 Cardiovascular extremities Edema present: bilateral 12/31/2012 None Full Exam - General 1994 Cardiovascular extremities Edema present: to knees 12/31/2012 None Full Exam - General 1994 Cardiovascular auscultation of heart Rate: regular rate 12/31/2012 None Full Exam - General 1994 Cardiovascular auscultation of heart Rhythm: regular rhythm 12/31/2012 None Full Exam - General 1994 Cardiovascular auscultation of heart S1: a normal exam 12/31/2012 None Full Exam - General 1994 Cardiovascular auscultation of heart S2: a normal exam 12/31/2012 None Full Exam - General 1994 Abdomen abdominal exam Contour: rounded 12/31/2012 None Full Exam - General 1995 Abdomen abdominal exam Bowel sounds: a normal exam 12/31/2012 None Full Exam - General 1994 Lymphatic neck nodes Overall: anterior cervical chain benign 12/31/2012 None Full Exam - General 1995 Integument inspection of skin Location: left leg 12/31/2012 None Full Exam - General 1995 Integument inspection of skin Rash/Lesions: ulceration 12/31/2012 1cm x 1cm x 0.5cm deep ulcer left anterior leg with fibrinous tissue at the base Full Exam - General 1995 Neurologic deep tendon reflexes Overall: deep tendon reflexes intact 12/31/2012 None Full Exam - General 1995 Neurologic cranial nerves Overall: crainial nerves 2 - 12 grossly intact 12/31/2012 None Full Exam - General 1994 Psychiatric orientation/consciousness Overall: oriented to person, place and time 12/31/2012 None Full Exam - General 1994 Psychiatric mood and affect Mood: depressed 12/31/2012 None Full Exam - General 1994 Psychiatric mood and affect Affect: mood congruent 12/31/2012 None Full Exam - General 1994 Psychiatric mood and affect Appropriateness: appropriate emotional responses 12/31/2012 None Full Exam - General 1994 Integument inspection of skin Location: left foot 12/31/2012 callous at base of left 5th toe with fissue noted Full Exam - General 1994 Constitutional general appearance Development: well developed 12/20/2012 None Full Exam - General 1994 Constitutional general appearance Development: appears stated age 0812/20/2012 None Full Exam - General 1994 Eyes conjunctiva /eyelids Overall: conjunctiva clear 12/20/2012 None Full Exam - General 1994 Eyes pupils and irises Overall: pupils equal, round, reactive to light and accomodation 12/20/2012 None Full Exam - General 1994 Ears/Nose/Throat otoscopic exam External auditory canal: a normal exam 12/20/2012 None Full Exam - General 1994 Ears/Nose/Throat oral cavity/pharynx/larynx Overall: oral mucosa clear 12/20/2012 None Full Exam - General 1994 Respiratory auscultation Overall: breath sounds clear bilaterally 12/20/2012 None Full Exam - General 1994 Respiratory respiratory effort/rhythm Overall: no retractions 12/20/2012 None Full Exam - General 1994 Respiratory respiratory effort/rhythm Overall: normal rate 12/20/2012 None Full Exam - General 1994 Cardiovascular extremities Edema present: pitting 12/20/2012 None Full Exam - General 1994 Cardiovascular extremities Edema present: severity 1+ - 4 +: _ 12/20/2012 None Full Exam - General 1995 Cardiovascular extremities Edema present: bilateral 12/20/2012 None Full Exam - General 1995 Cardiovascular extremities Edema present: to knees 12/20/2012 None Full Exam - General 1995 Cardiovascular auscultation of heart Rate: regular rate 12/20/2012 None Full Exam - General 1995 Cardiovascular auscultation of heart Rhythm: regular rhythm 12/20/2012 None Full Exam - General 1995 Cardiovascular auscultation of heart S1: a normal exam 12/20/2012 None Full Exam - General 1994 Cardiovascular auscultation of heart S2: a normal exam 12/20/2012 None Full Exam - General 1995 Abdomen abdominal exam Contour: rounded 12/20/2012 None Full Exam - General 1995 Abdomen abdominal exam Bowel sounds: a normal exam 12/20/2012 None Full Exam - General 1994 Lymphatic neck nodes Overall: anterior cervical chain benign 12/20/2012 None Full Exam - General 1994 Neurologic deep tendon reflexes Overall: deep tendon reflexes intact 12/20/2012 None Full Exam - General 1994 Neurologic cranial nerves Overall: crainial nerves 2 - 12 grossly intact 12/20/2012 None Full Exam - General 1994 Psychiatric orientation/consciousness Overall: oriented to person, place and time 12/20/2012 None Full Exam - General 1994 Psychiatric mood and affect Mood: depressed 12/20/2012 None Full Exam - General 1994 Psychiatric mood and affect Affect: mood congruent 12/20/2012 None Full Exam - General 1994 Psychiatric mood and affect Appropriateness: appropriate emotional responses 12/20/2012 None Full Exam - General 1994 Ears/Nose/Throat otoscopic exam Tympanic membrane: air- fluid level 12/20/2012 None Full Exam - General 1994 Respiratory auscultation Basilar: diminished 12/20/2012 None Full Exam - General 1994 Integument inspection of skin Location: left leg 12/20/2012 None Full Exam - General 1994 Integument inspection of skin Rash/Lesions: ulceration 12/20/2012 1cm x 1cm x 0.5cm deep ulcer left anterio leg Full Exam - General 1994 Constitutional general appearance Overall: well developed 10/29/2012 None Full Exam - General 1994 Constitutional general appearance Overall: in no acute distress 10/29/2012 None Full Exam - General 1994 Constitutional general appearance Overall: well nourished 10/29/2012 None Full Exam - General 1994 Eyes pupils and irises Overall: pupils equal, round, reactive to light and accomodation 10/29/2012 None Full Exam - General 1995 Ears/Nose/Throat external ear Overall: normal appearance 10/29/2012 None Full Exam - General 1995 Ears/Nose/Throat external ear Overall: no masses 10/29/2012 None Full Exam - General 1995 Ears/Nose/Throat external ear Overall: normal mastoids 10/29/2012 None Full Exam - General 1995 Ears/Nose/Throat otoscopic exam External auditory canal: a normal exam 10/29/2012 None Full Exam - General 1995 Ears/Nose/Throat otoscopic exam External auditory canal: partial cerumen occlusion 10/29/2012 None Full Exam - General 1995 Ears/Nose/Throat otoscopic exam Tympanic membrane: a normal exam 10/29/2012 None Full Exam - General 1995 Ears/Nose/Throat otoscopic exam Tympanic membrane: not visualized 10/29/2012 None Full Exam - General 1995 Ears/Nose/Throat internal nose Overall: bilateral nasal cavities clear 10/29/2012 None Full Exam - General 1995 Ears/Nose/Throat internal nose Turbinates: erythema 10/29/2012 None Full Exam - General 1995 Ears/Nose/Throat internal nose Drainage: clear 10/29/2012 None Full Exam - General 1995 Respiratory auscultation Overall: breath sounds clear bilaterally 10/29/2012 None Full Exam - General 1994 Respiratory respiratory effort/rhythm Overall: no retractions 10/29/2012 None Full Exam - General 1995 Respiratory respiratory effort/rhythm Overall: normal rate 10/29/2012 None Full Exam - General 1994 Cardiovascular auscultation of heart Overall: regular rate 10/29/2012 None Full Exam - General 1994 Cardiovascular auscultation of heart Overall: normal heart sounds 10/29/2012 tachycardia Full Exam - General 1994 Cardiovascular auscultation of heart Overall: no murmurs 10/29/2012 None Full Exam - General 1994 Lymphatic neck nodes Overall: shotty lymphadenopathy 10/29/2012 None Full Exam - General 1994 Neurologic mental status Overall: alert 10/29/2012 None Full Exam - General 1994 Neurologic mental status Overall: oriented 10/29/2012 None Full Exam - General 1994 Psychiatric orientation/consciousness Oriented to person: yes 10/29/2012 None Full Exam - General 1994 Psychiatric orientation/consciousness Oriented to place: yes 10/29/2012 None Full Exam - General 1994 Psychiatric orientation/consciousness Oriented to time: yes 10/29/2012 None Full Exam - General 1995 Psychiatric orientation/consciousness Level of consciousness: alert 10/29/2012 None Full Exam - General 1994 Musculoskeletal spine, ribs and pelvis Sacroiliac joints: tender left sacroiliac joint 09/21/2012 None Full Exam - General 1994 Musculoskeletal head and neck Overall: head atraumatic 09/21/2012 None Full Exam - General 1994 Musculoskeletal head and neck Overall: cervical spine benign 09/21/2012 None Full Exam - General 1994 Psychiatric mood and affect Overall: normal mood and affect 09/21/2012 None Full Exam - General 1994 Psychiatric orientation/consciousness Overall: oriented to person, place and time 09/21/2012 None Full Exam - General 1994 Constitutional general appearance Overall: well developed 09/21/2012 None Full Exam - General 1994 Constitutional general appearance Overall: in no acute distress 09/21/2012 None Full Exam - General 1994 Constitutional general appearance Overall: well nourished 09/21/2012 None Full Exam - General 1994 Constitutional general appearance Development: well developed 09/06/2012 None Full Exam - General 1994 Constitutional general appearance Development: appears stated age 0409/06/2012 None Full Exam - General 1994 Eyes conjunctiva /eyelids Overall: conjunctiva clear 09/06/2012 None Full Exam - General 1994 Eyes pupils and irises Overall: pupils equal, round, reactive to light and accomodation 09/06/2012 None Full Exam - General 1994 Ears/Nose/Throat otoscopic exam External auditory canal: a normal exam 09/06/2012 None Full Exam - General 1994 Ears/Nose/Throat otoscopic exam Tympanic membrane: a normal exam 09/06/2012 None Full Exam - General 1994 Ears/Nose/Throat oral cavity/pharynx/larynx Overall: oral mucosa clear 09/06/2012 None Full Exam - General 1994 Respiratory auscultation Overall: breath sounds clear bilaterally 09/06/2012 None Full Exam - General 1994 Respiratory respiratory effort/rhythm Overall: no retractions 09/06/2012 None Full Exam - General 1994 Respiratory respiratory effort/rhythm Overall: normal rate 09/06/2012 None Full Exam - General 1994 Cardiovascular extremities Edema present: pitting 09/06/2012 None Full Exam - General 1994 Cardiovascular extremities Edema present: severity 1+ - 4 +: _ 09/06/2012 None Full Exam - General 1994 Cardiovascular extremities Edema present: bilateral 09/06/2012 None Full Exam - General 1994 Cardiovascular extremities Edema present: to knees 09/06/2012 None Full Exam - General 1994 Cardiovascular auscultation of heart Rate: regular rate 09/06/2012 None Full Exam - General 1994 Cardiovascular auscultation of heart Rhythm: regular rhythm 09/06/2012 None Full Exam - General 1994 Cardiovascular auscultation of heart S1: a normal exam 09/06/2012 None Full Exam - General 1994 Cardiovascular auscultation of heart S2: a normal exam 09/06/2012 None Full Exam - General 1994 Abdomen abdominal exam Contour: rounded 09/06/2012 None Full Exam - General 1994 Abdomen abdominal exam Bowel sounds: a normal exam 09/06/2012 None Full Exam - General 1994 Lymphatic neck nodes Overall: anterior cervical chain benign 09/06/2012 None Full Exam - General 1994 Neurologic deep tendon reflexes Overall: deep tendon reflexes intact 09/06/2012 None Full Exam - General 1994 Neurologic cranial nerves Overall: crainial nerves 2 - 12 grossly intact 09/06/2012 None Full Exam - General 1994 Psychiatric orientation/consciousness Overall: oriented to person, place and time 09/06/2012 None Full Exam - General 1994 Psychiatric mood and affect Mood: depressed 09/06/2012 None Full Exam - General 1994 Psychiatric mood and affect Affect: mood congruent 09/06/2012 None Full Exam - General 1994 Psychiatric mood and affect Appropriateness: appropriate emotional responses 09/06/2012 None Full Exam - General 1994 Constitutional general appearance Development: well developed 08/23/2012 None Full Exam - General 1994 Constitutional general appearance Development: appears stated age 0408/23/2012 None Full Exam - General 1994 Eyes conjunctiva /eyelids Overall: conjunctiva clear 08/23/2012 None Full Exam - General 1994 Eyes pupils and irises Overall: pupils equal, round, reactive to light and accomodation 08/23/2012 None Full Exam - General 1994 Ears/Nose/Throat oral cavity/pharynx/larynx Overall: oral mucosa clear 08/23/2012 None Full Exam - General 1994 Respiratory auscultation Overall: breath sounds clear bilaterally 08/23/2012 None Full Exam - General 1994 Respiratory respiratory effort/rhythm Overall: no retractions 08/23/2012 None Full Exam - General 1994 Respiratory respiratory effort/rhythm Overall: normal rate 08/23/2012 None Full Exam - General 1994 Cardiovascular extremities Edema present: pitting 08/23/2012 None Full Exam - General 1994 Cardiovascular extremities Edema present: severity 1+ - 4 +: _ 08/23/2012 None Full Exam - General 1994 Cardiovascular extremities Edema present: bilateral 08/23/2012 None Full Exam - General 1994 Cardiovascular extremities Edema present: to knees 08/23/2012 None Full Exam - General 1995 Cardiovascular auscultation of heart Rate: regular rate 08/23/2012 None Full Exam - General 1994 Cardiovascular auscultation of heart Rhythm: regular rhythm 08/23/2012 None Full Exam - General 1994 Cardiovascular auscultation of heart S1: a normal exam 08/23/2012 None Full Exam - General 1994 Cardiovascular auscultation of heart S2: a normal exam 08/23/2012 None Full Exam - General 1994 Abdomen abdominal exam Contour: rounded 08/23/2012 None Full Exam - General 1994 Lymphatic neck nodes Overall: anterior cervical chain benign 08/23/2012 None Full Exam - General 1994 Neurologic deep tendon reflexes Overall: deep tendon reflexes intact 08/23/2012 None Full Exam - General 1994 Neurologic cranial nerves Overall: crainial nerves 2 - 12 grossly intact 08/23/2012 None Full Exam - General 1994 Psychiatric orientation/consciousness Overall: oriented to person, place and time 08/23/2012 None Full Exam - General 1994 Psychiatric mood and affect Mood: depressed 08/23/2012 None Full Exam - General 1994 Psychiatric mood and affect Affect: mood congruent 08/23/2012 None Full Exam - General 1994 Psychiatric mood and affect Appropriateness: appropriate emotional responses 08/23/2012 None Full Exam - General 1994 Ears/Nose/Throat otoscopic exam External auditory canal: a normal exam 08/23/2012 None Full Exam - General 1994 Ears/Nose/Throat otoscopic exam Tympanic membrane: a normal exam 08/23/2012 None Full Exam - General 1994 Abdomen abdominal exam Bowel sounds: a normal exam 08/23/2012 None Full Exam - General 1994 Constitutional general appearance Development: well developed 08/13/2012 None Full Exam - General 1994 Constitutional general appearance Development: appears stated age 0308/13/2012 None Full Exam - General 1994 Eyes conjunctiva /eyelids Overall: conjunctiva clear 08/13/2012 None Full Exam - General 1994 Eyes pupils and irises Overall: pupils equal, round, reactive to light and accomodation 08/13/2012 None Full Exam - General 1994 Ears/Nose/Throat otoscopic exam External auditory canal: partial cerumen occlusion 08/13/2012 None Full Exam - General 1994 Ears/Nose/Throat otoscopic exam Tympanic membrane: not visualized 08/13/2012 None Full Exam - General 1994 Ears/Nose/Throat oral cavity/pharynx/larynx Overall: oral mucosa clear 08/13/2012 None Full Exam - General 1994 Respiratory auscultation Overall: breath sounds clear bilaterally 08/13/2012 None Full Exam - General 1995 Respiratory respiratory effort/rhythm Overall: no retractions 08/13/2012 None Full Exam - General 1994 Respiratory respiratory effort/rhythm Overall: normal rate 08/13/2012 None Full Exam - General 1994 Cardiovascular extremities Edema present: pitting 08/13/2012 None Full Exam - General 1994 Cardiovascular extremities Edema present: severity 1+ - 4 +: _ 08/13/2012 None Full Exam - General 1994 Cardiovascular extremities Edema present: bilateral 08/13/2012 None Full Exam - General 1994 Cardiovascular extremities Edema present: to knees 08/13/2012 None Full Exam - General 1994 Cardiovascular auscultation of heart Rate: regular rate 08/13/2012 None Full Exam - General 1994 Cardiovascular auscultation of heart Rhythm: regular rhythm 08/13/2012 None Full Exam - General 1994 Cardiovascular auscultation of heart S1: a normal exam 08/13/2012 None Full Exam - General 1994 Cardiovascular auscultation of heart S2: a normal exam 08/13/2012 None Full Exam - General 1994 Lymphatic neck nodes Overall: anterior cervical chain benign 08/13/2012 None Full Exam - General 1994 Neurologic deep tendon reflexes Overall: deep tendon reflexes intact 08/13/2012 None Full Exam - General 1994 Neurologic cranial nerves Overall: crainial nerves 2 - 12 grossly intact 08/13/2012 None Full Exam - General 1994 Psychiatric orientation/consciousness Overall: oriented to person, place and time 08/13/2012 None Full Exam - General 1994 Psychiatric mood and affect Mood: depressed 08/13/2012 None Full Exam - General 1994 Psychiatric mood and affect Affect: mood congruent 08/13/2012 None Full Exam - General 1994 Psychiatric mood and affect Appropriateness: appropriate emotional responses 08/13/2012 None Full Exam - General 1994 Abdomen abdominal exam Bowel sounds: hyperactive 08/13/2012 None Full Exam - General 1994 Abdomen abdominal exam Contour: rounded 08/13/2012 None Full Exam - General 1994 Eyes conjunctiva /eyelids Overall: conjunctiva clear 08/07/2012 None Full Exam - General 1994 Eyes pupils and irises Overall: pupils equal, round, reactive to light and accomodation 08/07/2012 None Full Exam - General 1995 Ears/Nose/Throat otoscopic exam External auditory canal: partial cerumen occlusion 08/07/2012 None Full Exam - General 1995 Ears/Nose/Throat otoscopic exam Tympanic membrane: not visualized 08/07/2012 None Full Exam - General 1995 Ears/Nose/Throat oral cavity/pharynx/larynx Overall: oral mucosa clear 08/07/2012 None Full Exam - General 1994 Respiratory auscultation Overall: breath sounds clear bilaterally 08/07/2012 None Full Exam - General 1994 Respiratory respiratory effort/rhythm Overall: no retractions 08/07/2012 None Full Exam - General 1995 Respiratory respiratory effort/rhythm Overall: normal rate 08/07/2012 None Full Exam - General 1994 Cardiovascular extremities Edema present: pitting 08/07/2012 None Full Exam - General 1994 Cardiovascular extremities Edema present: severity 1+ - 4 +: _ 08/07/2012 None Full Exam - General 1994 Cardiovascular extremities Edema present: bilateral 08/07/2012 None Full Exam - General 1994 Cardiovascular extremities Edema present: to knees 08/07/2012 None Full Exam - General 1994 Cardiovascular auscultation of heart Rate: regular rate 08/07/2012 None Full Exam - General 1994 Cardiovascular auscultation of heart Rhythm: regular rhythm 08/07/2012 None Full Exam - General 1994 Constitutional general appearance Development: well developed 08/07/2012 None Full Exam - General 1994 Constitutional general appearance Development: appears stated age 0308/07/2012 None Full Exam - General 1994 Cardiovascular auscultation of heart S1: a normal exam 08/07/2012 None Full Exam - General 1994 Cardiovascular auscultation of heart S2: a normal exam 08/07/2012 None Full Exam - General 1994 Abdomen abdominal exam Overall: no tenderness 08/07/2012 None Full Exam - General 1994 Abdomen abdominal exam Overall: normal bowel sounds 08/07/2012 None Full Exam - General 1994 Lymphatic neck nodes Overall: anterior cervical chain benign 08/07/2012 None Full Exam - General 1994 Neurologic deep tendon reflexes Overall: deep tendon reflexes intact 08/07/2012 None Full Exam - General 1994 Neurologic cranial nerves Overall: crainial nerves 2 - 12 grossly intact 08/07/2012 None Full Exam - General 1994 Psychiatric orientation/consciousness Overall: oriented to person, place and time 08/07/2012 None Full Exam - General 1994 Psychiatric mood and affect Mood: depressed 08/07/2012 None Full Exam - General 1994 Psychiatric mood and affect Affect: mood congruent 08/07/2012 None Full Exam - General 1994 Psychiatric mood and affect Appropriateness: appropriate emotional responses 08/07/2012 None Full Exam - ENT Constitutional general appearance Overall: well developed 07/06/2012 None Full Exam - ENT Constitutional general appearance Overall: well nourished 07/06/2012 None Full Exam - ENT Constitutional general appearance Overall: in no acute distress 07/06/2012 None Full Exam - ENT Neurologic orientation Overall: oriented to person, place and time 07/06/2012 None Full Exam - ENT Lymphatic palpation of lymph nodes Overall: anterior cervical chain benign 07/06/2012 None Full Exam - ENT Lymphatic palpation of lymph nodes Overall: posterior cervical chain benign 07/06/2012 None Full Exam - ENT Cardiovascular auscultation of heart Overall: regular rate 07/06/2012 None Full Exam - ENT Cardiovascular auscultation of heart Overall: normal heart sounds 07/06/2012 None Full Exam - ENT Respiratory auscultation Overall: breath sounds clear bilaterally 07/06/2012 None Full Exam - ENT Respiratory inspection Overall: no retractions 07/06/2012 None Full Exam - ENT Respiratory inspection Overall: normal rate None Full Exam - ENT Face and Head palpation Left maxillary sinus: tender 07/06/2012 None Full Exam - ENT Face and Head palpation Right maxillary sinus: tender 07/06/2012 None Full Exam - ENT Face and Head palpation Left frontal sinus: tender 07/06/2012 None Full Exam - ENT Face and Head palpation Right frontal sinus: tender 07/06/2012 None Full Exam - ENT Ears/Nose/Throat otoscopic exam Overall: external auditory canals normal 07/06/2012 None Full Exam - ENT Ears/Nose/Throat otoscopic exam Overall: tympanic membranes normal 07/06/2012 None Full Exam - ENT Ears/Nose/Throat oropharynx Mobile tongue: tender 07/06/2012 erythematous Full Exam - General 1994 Constitutional general appearance Development: well developed 06/07/2012 None Full Exam - General 1994 Constitutional general appearance Development: appears stated age 0106/07/2012 None Full Exam - General 1994 Eyes conjunctiva /eyelids Overall: conjunctiva clear 06/07/2012 None Full Exam - General 1994 Eyes pupils and irises Overall: pupils equal, round, reactive to light and accomodation 06/07/2012 None Full Exam - General 1995 Ears/Nose/Throat otoscopic exam Overall: external auditory canals clear 06/07/2012 None Full Exam - General 1995 Ears/Nose/Throat oral cavity/pharynx/larynx Overall: oral mucosa clear 06/07/2012 None Full Exam - General 1995 Respiratory auscultation Overall: breath sounds clear bilaterally 06/07/2012 None Full Exam - General 1995 Respiratory respiratory effort/rhythm Overall: no retractions 06/07/2012 None Full Exam - General 1995 Respiratory respiratory effort/rhythm Overall: normal rate 06/07/2012 None Full Exam - General 1995 Cardiovascular extremities Edema present: pitting 06/07/2012 trace to bilateral ankles Full Exam - General 1995 Cardiovascular auscultation of heart Rate: regular rate 06/07/2012 None Full Exam - General 1994 Cardiovascular auscultation of heart Rhythm: regular rhythm 06/07/2012 None Full Exam - General 1994 Cardiovascular auscultation of heart S1: a normal exam 06/07/2012 None Full Exam - General 1994 Cardiovascular auscultation of heart S2: a normal exam 06/07/2012 None Full Exam - General 1994 Abdomen abdominal exam Overall: no tenderness 06/07/2012 None Full Exam - General 1994 Abdomen abdominal exam Overall: normal bowel sounds 06/07/2012 None Full Exam - General 1994 Genitourinary labia and vagina Labia: cyst 06/07/2012 cyst noted to left labia-small amount of drainage noted-serosang. Approx 2cm. Slight redness Full Exam - General 1994 Lymphatic neck nodes Overall: anterior cervical chain benign 06/07/2012 None Full Exam - General 1994 Neurologic deep tendon reflexes Overall: deep tendon reflexes intact 06/07/2012 None Full Exam - General 1994 Neurologic cranial nerves Overall: crainial nerves 2 - 12 grossly intact 06/07/2012 None Full Exam - General 1994 Psychiatric orientation/consciousness Overall: oriented to person, place and time 06/07/2012 None Full Exam - General 1994 Psychiatric mood and affect Mood: anxious 06/07/2012 None Full Exam - General 1994 Psychiatric mood and affect Affect: mood congruent 06/07/2012 None Full Exam - General 1994 Psychiatric mood and affect Appropriateness: appropriate emotional responses 06/07/2012 None Full Exam - General 1994 Constitutional general appearance Development: well developed 05/28/2012 None Full Exam - General 1994 Constitutional general appearance Development: appears stated age 0105/28/2012 None Full Exam - General 1995 Eyes conjunctiva /eyelids Overall: conjunctiva clear 05/28/2012 None Full Exam - General 1994 Eyes pupils and irises Overall: pupils equal, round, reactive to light and accomodation 05/28/2012 None Full Exam - General 1995 Ears/Nose/Throat otoscopic exam Overall: external auditory canals clear 05/28/2012 None Full Exam - General 1995 Ears/Nose/Throat oral cavity/pharynx/larynx Overall: oral mucosa clear 05/28/2012 None Full Exam - General 1994 Respiratory auscultation Overall: breath sounds clear bilaterally 05/28/2012 None Full Exam - General 1994 Respiratory respiratory effort/rhythm Overall: no retractions 05/28/2012 None Full Exam - General 1994 Respiratory respiratory effort/rhythm Overall: normal rate 05/28/2012 None Full Exam - General 1994 Cardiovascular extremities Edema present: pitting 05/28/2012 trace to bilateral ankles Full Exam - General 1994 Cardiovascular auscultation of heart Rate: regular rate 05/28/2012 None Full Exam - General 1994 Cardiovascular auscultation of heart Rhythm: regular rhythm 05/28/2012 None Full Exam - General 1994 Cardiovascular auscultation of heart S1: a normal exam 05/28/2012 None Full Exam - General 1994 Cardiovascular auscultation of heart S2: a normal exam 05/28/2012 None Full Exam - General 1994 Abdomen abdominal exam Overall: no tenderness 05/28/2012 None Full Exam - General 1994 Abdomen abdominal exam Overall: normal bowel sounds 05/28/2012 None Full Exam - General 1994 Lymphatic neck nodes Overall: anterior cervical chain benign 05/28/2012 None Full Exam - General 1994 Neurologic deep tendon reflexes Overall: deep tendon reflexes intact 05/28/2012 None Full Exam - General 1994 Neurologic cranial nerves Overall: crainial nerves 2 - 12 grossly intact 05/28/2012 None Full Exam - General 1994 Psychiatric orientation/consciousness Overall: oriented to person, place and time 05/28/2012 None Full Exam - General 1994 Psychiatric mood and affect Affect: mood congruent 05/28/2012 None Full Exam - General 1994 Psychiatric mood and affect Appropriateness: appropriate emotional responses 05/28/2012 None Full Exam - General 1994 Psychiatric mood and affect Mood: anxious 05/28/2012 None Full Exam - General 1994 Genitourinary labia and vagina Labia: cyst 05/28/2012 cyst noted to left labia-small amount of drainage noted-serosang. Approx 2cm. Slight redness Full Exam - General 1995 Respiratory respiratory effort/rhythm Overall: normal rate 05/17/2012 None Full Exam - General 1994 Cardiovascular extremities Edema present: pitting 05/17/2012 trace to bilateral ankles Full Exam - General 1995 Cardiovascular auscultation of heart Rate: regular rate 05/17/2012 None Full Exam - General 1994 Cardiovascular auscultation of heart Rhythm: regular rhythm 05/17/2012 None Full Exam - General 1994 Cardiovascular auscultation of heart S1: a normal exam 05/17/2012 None Full Exam - General 1994 Cardiovascular auscultation of heart S2: a normal exam 05/17/2012 None Full Exam - General 1994 Abdomen abdominal exam Overall: no tenderness 05/17/2012 None Full Exam - General 1994 Abdomen abdominal exam Overall: normal bowel sounds 05/17/2012 None Full Exam - General 1994 Lymphatic neck nodes Overall: anterior cervical chain benign 05/17/2012 None Full Exam - General 1994 Neurologic deep tendon reflexes Overall: deep tendon reflexes intact 05/17/2012 None Full Exam - General 1994 Neurologic cranial nerves Overall: crainial nerves 2 - 12 grossly intact 05/17/2012 None Full Exam - General 1994 Psychiatric orientation/consciousness Overall: oriented to person, place and time 05/17/2012 None Full Exam - General 1994 Psychiatric mood and affect Mood: depressed 05/17/2012 None Full Exam - General 1994 Psychiatric mood and affect Affect: mood congruent 05/17/2012 None Full Exam - General 1994 Constitutional general appearance Development: well developed 05/17/2012 None Full Exam - General 1994 Constitutional general appearance Development: appears stated age 1205/17/2012 None Full Exam - General 1994 Eyes conjunctiva /eyelids Overall: conjunctiva clear 05/17/2012 None Full Exam - General 1994 Eyes pupils and irises Overall: pupils equal, round, reactive to light and accomodation 05/17/2012 None Full Exam - General 1994 Ears/Nose/Throat otoscopic exam Overall: external auditory canals clear 05/17/2012 None Full Exam - General 1994 Ears/Nose/Throat oral cavity/pharynx/larynx Overall: oral mucosa clear 05/17/2012 None Full Exam - General 1994 Respiratory auscultation Overall: breath sounds clear bilaterally 05/17/2012 None Full Exam - General 1994 Respiratory respiratory effort/rhythm Overall: no retractions 05/17/2012 None Full Exam - General 1994 Psychiatric mood and affect Appropriateness: appropriate emotional responses 05/17/2012 None Full Exam - General 1995 Constitutional general appearance Development: well developed 05/02/2012 None Full Exam - General 1995 Constitutional general appearance Development: appears stated age 1205/02/2012 None Full Exam - General 1995 Eyes conjunctiva /eyelids Overall: conjunctiva clear 05/02/2012 None Full Exam - General 1994 Eyes pupils and irises Overall: pupils equal, round, reactive to light and accomodation 05/02/2012 None Full Exam - General 1994 Ears/Nose/Throat otoscopic exam External auditory canal: partial cerumen occlusion 05/02/2012 None Full Exam - General 1994 Abdomen abdominal exam Overall: normal bowel sounds 05/02/2012 None Full Exam - General 1994 Lymphatic neck nodes Overall: anterior cervical chain benign 05/02/2012 None Full Exam - General 1994 Neurologic deep tendon reflexes Overall: deep tendon reflexes intact 05/02/2012 None Full Exam - General 1994 Neurologic cranial nerves Overall: crainial nerves 2 - 12 grossly intact 05/02/2012 None Full Exam - General 1994 Psychiatric orientation/consciousness Overall: oriented to person, place and time 05/02/2012 None Full Exam - General 1994 Psychiatric mood and affect Mood: depressed 05/02/2012 None Full Exam - General 1994 Psychiatric mood and affect Affect: mood congruent 05/02/2012 None Full Exam - General 1994 Psychiatric mood and affect Appropriateness: appropriate emotional responses 05/02/2012 None Full Exam - General 1994 Ears/Nose/Throat otoscopic exam Tympanic membrane: not visualized 05/02/2012 None Full Exam - General 1994 Ears/Nose/Throat oral cavity/pharynx/larynx Overall: oral mucosa clear 05/02/2012 None Full Exam - General 1994 Respiratory auscultation Overall: breath sounds clear bilaterally 05/02/2012 None Full Exam - General 1994 Respiratory respiratory effort/rhythm Overall: no retractions 05/02/2012 None Full Exam - General 1994 Respiratory respiratory effort/rhythm Overall: normal rate 05/02/2012 None Full Exam - General 1994 Cardiovascular extremities Edema present: pitting 05/02/2012 None Full Exam - General 1994 Cardiovascular extremities Edema present: severity 1+ - 4 +: _ 05/02/2012 None Full Exam - General 1994 Cardiovascular extremities Edema present: bilateral 05/02/2012 None Full Exam - General 1994 Cardiovascular extremities Edema present: to knees 05/02/2012 None Full Exam - General 1994 Cardiovascular auscultation of heart Rate: regular rate 05/02/2012 None Full Exam - General 1994 Cardiovascular auscultation of heart Rhythm: regular rhythm 05/02/2012 None Full Exam - General 1994 Cardiovascular auscultation of heart S1: a normal exam 05/02/2012 None Full Exam - General 1994 Cardiovascular auscultation of heart S2: a normal exam 05/02/2012 None Full Exam - General 1994 Abdomen abdominal exam Overall: no tenderness 05/02/2012 None Full Exam - General 1994 Constitutional general appearance Development: well developed 04/10/2012 None Full Exam - General 1994 Constitutional general appearance Development: appears stated age 1104/10/2012 None Full Exam - General 1994 Eyes conjunctiva /eyelids Overall: conjunctiva clear 04/10/2012 None Full Exam - General 1994 Eyes pupils and irises Overall: pupils equal, round, reactive to light and accomodation 04/10/2012 None Full Exam - General 1994 Respiratory auscultation Overall: breath sounds clear bilaterally 04/10/2012 None Full Exam - General 1994 Respiratory respiratory effort/rhythm Overall: no retractions 04/10/2012 None Full Exam - General 1994 Respiratory respiratory effort/rhythm Overall: normal rate 04/10/2012 None Full Exam - General 1994 Cardiovascular auscultation of heart Rate: regular rate 04/10/2012 None Full Exam - General 1994 Cardiovascular auscultation of heart Rhythm: regular rhythm 04/10/2012 None Full Exam - General 1994 Cardiovascular auscultation of heart S1: a normal exam 04/10/2012 None Full Exam - General 1994 Cardiovascular auscultation of heart S2: a normal exam 04/10/2012 None Full Exam - General 1994 Abdomen abdominal exam Overall: no tenderness 04/10/2012 None Full Exam - General 1994 Abdomen abdominal exam Overall: normal bowel sounds 04/10/2012 None Full Exam - General 1994 Lymphatic neck nodes Overall: anterior cervical chain benign 04/10/2012 None Full Exam - General 1994 Neurologic deep tendon reflexes Overall: deep tendon reflexes intact 04/10/2012 None Full Exam - General 1994 Neurologic cranial nerves Overall: crainial nerves 2 - 12 grossly intact 04/10/2012 None Full Exam - General 1994 Psychiatric orientation/consciousness Overall: oriented to person, place and time 04/10/2012 None Full Exam - General 1994 Psychiatric mood and affect Mood: depressed 04/10/2012 None Full Exam - General 1994 Psychiatric mood and affect Affect: mood congruent 04/10/2012 None Full Exam - General 1994 Psychiatric mood and affect Appropriateness: appropriate emotional responses 04/10/2012 None Full Exam - General 1994 Cardiovascular extremities Edema present: pitting 04/10/2012 trace to bilateral ankles Full Exam - General 1995 Ears/Nose/Throat otoscopic exam Overall: external auditory canals clear 04/10/2012 None Full Exam - General 1994 Ears/Nose/Throat oral cavity/pharynx/larynx Overall: oral mucosa clear 04/10/2012 None Full Exam - General 1994 Constitutional general appearance Development: well developed 02/27/2012 None Full Exam - General 1994 Constitutional general appearance Development: appears stated age 1002/27/2012 None Full Exam - General 1994 Eyes conjunctiva /eyelids Overall: conjunctiva clear 02/27/2012 None Full Exam - General 1994 Eyes pupils and irises Overall: pupils equal, round, reactive to light and accomodation 02/27/2012 None Full Exam - General 1994 Respiratory auscultation Overall: breath sounds clear bilaterally 02/27/2012 None Full Exam - General 1994 Respiratory respiratory effort/rhythm Overall: no retractions 02/27/2012 None Full Exam - General 1994 Respiratory respiratory effort/rhythm Overall: normal rate 02/27/2012 None Full Exam - General 1994 Cardiovascular extremities Edema present: pitting 02/27/2012 None Full Exam - General 1994 Cardiovascular extremities Edema present: severity 1+ - 4 +: _ 02/27/2012 None Full Exam - General 1994 Cardiovascular extremities Edema present: bilateral 02/27/2012 None Full Exam - General 1994 Cardiovascular extremities Edema present: to knees 02/27/2012 None Full Exam - General 1994 Cardiovascular auscultation of heart Rate: regular rate 02/27/2012 None Full Exam - General 1994 Cardiovascular auscultation of heart Rhythm: regular rhythm 02/27/2012 None Full Exam - General 1994 Cardiovascular auscultation of heart S1: a normal exam 02/27/2012 None Full Exam - General 1994 Cardiovascular auscultation of heart S2: a normal exam 02/27/2012 None Full Exam - General 1994 Abdomen abdominal exam Overall: no tenderness 02/27/2012 None Full Exam - General 1994 Abdomen abdominal exam Overall: normal bowel sounds 02/27/2012 None Full Exam - General 1994 Lymphatic neck nodes Overall: anterior cervical chain benign 02/27/2012 None Full Exam - General 1994 Integument inspection of skin Location: left foot 02/27/2012 foreign body sole of left foot- tender to palpation Full Exam - General 1994 Neurologic deep tendon reflexes Overall: deep tendon reflexes intact 02/27/2012 None Full Exam - General 1994 Neurologic cranial nerves Overall: crainial nerves 2 - 12 grossly intact 02/27/2012 None Full Exam - General 1994 Psychiatric orientation/consciousness Overall: oriented to person, place and time 02/27/2012 None Full Exam - General 1994 Psychiatric mood and affect Mood: depressed 02/27/2012 None Full Exam - General 1994 Psychiatric mood and affect Affect: mood congruent 02/27/2012 None Full Exam - General 1994 Psychiatric mood and affect Appropriateness: appropriate emotional responses 02/27/2012 None Full Exam - General 1994 Constitutional general appearance Development: well developed 02/15/2012 None Full Exam - General 1994 Constitutional general appearance Development: appears stated age 0902/15/2012 None Full Exam - General 1994 Eyes conjunctiva /eyelids Overall: conjunctiva clear 02/15/2012 None Full Exam - General 1994 Eyes pupils and irises Overall: pupils equal, round, reactive to light and accomodation 02/15/2012 None Full Exam - General 1994 Respiratory auscultation Overall: breath sounds clear bilaterally 02/15/2012 None Full Exam - General 1994 Respiratory respiratory effort/rhythm Overall: no retractions 02/15/2012 None Full Exam - General 1994 Respiratory respiratory effort/rhythm Overall: normal rate 02/15/2012 None Full Exam - General 1994 Cardiovascular extremities Edema present: pitting 02/15/2012 None Full Exam - General 1994 Cardiovascular extremities Edema present: severity 1+ - 4 +: _ 02/15/2012 None Full Exam - General 1994 Cardiovascular extremities Edema present: bilateral 02/15/2012 None Full Exam - General 1994 Cardiovascular extremities Edema present: to knees 02/15/2012 None Full Exam - General 1994 Cardiovascular auscultation of heart Rate: regular rate 02/15/2012 None Full Exam - General 1994 Cardiovascular auscultation of heart Rhythm: regular rhythm 02/15/2012 None Full Exam - General 1994 Cardiovascular auscultation of heart S1: a normal exam 02/15/2012 None Full Exam - General 1994 Cardiovascular auscultation of heart S2: a normal exam 02/15/2012 None Full Exam - General 1994 Abdomen abdominal exam Overall: no tenderness 02/15/2012 None Full Exam - General 1994 Abdomen abdominal exam Overall: normal bowel sounds 02/15/2012 None Full Exam - General 1994 Lymphatic neck nodes Overall: anterior cervical chain benign 02/15/2012 None Full Exam - General 1994 Neurologic deep tendon reflexes Overall: deep tendon reflexes intact 02/15/2012 None Full Exam - General 1994 Neurologic cranial nerves Overall: crainial nerves 2 - 12 grossly intact 02/15/2012 None Full Exam - General 1994 Psychiatric orientation/consciousness Overall: oriented to person, place and time 02/15/2012 None Full Exam - General 1994 Psychiatric mood and affect Affect: mood congruent 02/15/2012 None Full Exam - General 1994 Psychiatric mood and affect Appropriateness: appropriate emotional responses 02/15/2012 None Full Exam - General 1994 Psychiatric mood and affect Mood: depressed 02/15/2012 None Full Exam - General 1994 Integument inspection of skin Location: left foot 02/15/2012 ulcer noted sole of left foot- firm and TTP-Dr. Motta in to evaluate-unroofed lesion and pustular drainage noted Full Exam - General 1994 Constitutional general appearance Development: well developed 02/01/2012 None Full Exam - General 1994 Constitutional general appearance Development: appears stated age 0902/01/2012 None Full Exam - General 1994 Eyes conjunctiva /eyelids Overall: conjunctiva clear 02/01/2012 None Full Exam - General 1994 Eyes pupils and irises Overall: pupils equal, round, reactive to light and accomodation 02/01/2012 None Full Exam - General 1994 Ears/Nose/Throat otoscopic exam External auditory canal: partial cerumen occlusion 02/01/2012 None Full Exam - General 1994 Ears/Nose/Throat otoscopic exam Tympanic membrane: not visualized 02/01/2012 None Full Exam - General 1994 Respiratory auscultation Overall: breath sounds clear bilaterally 02/01/2012 None Full Exam - General 1994 Respiratory respiratory effort/rhythm Overall: no retractions 02/01/2012 None Full Exam - General 1994 Respiratory respiratory effort/rhythm Overall: normal rate 02/01/2012 None Full Exam - General 1994 Cardiovascular extremities Edema present: pitting 02/01/2012 None Full Exam - General 1994 Cardiovascular extremities Edema present: severity 1+ - 4 +: _ 02/01/2012 None Full Exam - General 1994 Cardiovascular extremities Edema present: bilateral 02/01/2012 None Full Exam - General 1994 Cardiovascular extremities Edema present: to knees 02/01/2012 None Full Exam - General 1994 Cardiovascular auscultation of heart Rate: regular rate 02/01/2012 None Full Exam - General 1995 Cardiovascular auscultation of heart Rhythm: regular rhythm 02/01/2012 None Full Exam - General 1994 Cardiovascular auscultation of heart S1: a normal exam 02/01/2012 None Full Exam - General 1994 Cardiovascular auscultation of heart S2: a normal exam 02/01/2012 None Full Exam - General 1994 Abdomen abdominal exam Overall: no tenderness 02/01/2012 None Full Exam - General 1994 Abdomen abdominal exam Overall: normal bowel sounds 02/01/2012 None Full Exam - General 1994 Lymphatic neck nodes Overall: anterior cervical chain benign 02/01/2012 None Full Exam - General 1994 Neurologic deep tendon reflexes Overall: deep tendon reflexes intact 02/01/2012 None Full Exam - General 1994 Neurologic cranial nerves Overall: crainial nerves 2 - 12 grossly intact 02/01/2012 None Full Exam - General 1994 Psychiatric orientation/consciousness Overall: oriented to person, place and time 02/01/2012 None Full Exam - General 1994 Psychiatric mood and affect Mood: depressed 02/01/2012 None Full Exam - General 1994 Psychiatric mood and affect Affect: mood congruent 02/01/2012 None Full Exam - General 1994 Psychiatric mood and affect Appropriateness: appropriate emotional responses 02/01/2012 None Full Exam - General 1994 Ears/Nose/Throat oral cavity/pharynx/larynx Overall: oral mucosa clear 02/01/2012 maxillary sinus tenderness bilaterally Full Exam - General 1994 Psychiatric orientation/consciousness Overall: oriented to person, place and time 12/14/2011 None Full Exam - General 1994 Psychiatric mood and affect Overall: normal mood and affect 12/14/2011 None Full Exam - General 1994 Musculoskeletal spine, ribs and pelvis Sacroiliac joints: tender left sacroiliac joint 12/14/2011 None Full Exam - General 1994 Neck inspection of neck Overall: no masses 12/14/2011 None Full Exam - General 1994 Respiratory auscultation Overall: breath sounds clear bilaterally 12/14/2011 None Full Exam - General 1994 Respiratory respiratory effort/rhythm Overall: no retractions 12/14/2011 None Full Exam - General 1994 Respiratory respiratory effort/rhythm Overall: normal rate 12/14/2011 None Full Exam - General 1994 Cardiovascular auscultation of heart Overall: regular rate 12/14/2011 None Full Exam - General 1994 Cardiovascular auscultation of heart Overall: normal heart sounds 12/14/2011 None Full Exam - General 1994 Cardiovascular auscultation of heart Overall: no murmurs 12/14/2011 None Full Exam - General 1994 Abdomen abdominal exam Overall: no tenderness 12/14/2011 None Full Exam - General 1994 Abdomen abdominal exam Overall: normal bowel sounds 12/14/2011 None Full Exam - General 1994 Musculoskeletal head and neck Overall: head atraumatic 12/14/2011 None Full Exam - General 1994 Musculoskeletal head and neck Overall: cervical spine benign 12/14/2011 None Full Exam - General 1994 Neurologic deep tendon reflexes Overall: deep tendon reflexes intact 12/14/2011 None Full Exam - General 1994 Neurologic gait Overall: no ataxia, no unsteadiness 12/14/2011 None Full Exam - General 1994 Neurologic cranial nerves Overall: crainial nerves 2 - 12 grossly intact 12/14/2011 None Full Exam - General 1994 Constitutional general appearance Overall: well developed 12/14/2011 None Full Exam - General 1994 Constitutional general appearance Overall: in no acute distress 12/14/2011 None Full Exam - General 1994 Constitutional general appearance Overall: well nourished 12/14/2011 None Full Exam - General 1994 Eyes pupils and irises Overall: pupils equal, round, reactive to light and accomodation 12/14/2011 None Full Exam - General 1994 Ears/Nose/Throat otoscopic exam External auditory canal: a normal exam 12/14/2011 None Full Exam - General 1994 Ears/Nose/Throat otoscopic exam External auditory canal: minimal cerumen 12/14/2011 None Full Exam - General 1994 Ears/Nose/Throat otoscopic exam Tympanic membrane: air- fluid level 12/14/2011 None Full Exam - General 1994 Ears/Nose/Throat oral cavity/pharynx/larynx Overall: oral mucosa clear 12/14/2011 None Full Exam - General 1994 Ears/Nose/Throat oral cavity/pharynx/larynx Overall: oropharyngeal mucosa clear 12/14/2011 None Full Exam - General 1994 Ears/Nose/Throat oral cavity/pharynx/larynx Overall: no masses 12/14/2011 None Full Exam - General 1994 Neck inspection of neck Overall: normal size 12/14/2011 None Full Exam - General 1994 Constitutional general appearance Overall: well developed 11/30/2011 None Full Exam - General 1994 Constitutional general appearance Overall: in no acute distress 11/30/2011 None Full Exam - General 1994 Constitutional general appearance Overall: well nourished 11/30/2011 None Full Exam - General 1994 Eyes pupils and irises Overall: pupils equal, round, reactive to light and accomodation 11/30/2011 None Full Exam - General 1995 Ears/Nose/Throat otoscopic exam External auditory canal: a normal exam 11/30/2011 None Full Exam - General 1995 Ears/Nose/Throat otoscopic exam External auditory canal: minimal cerumen 11/30/2011 None Full Exam - General 1994 Ears/Nose/Throat otoscopic exam Tympanic membrane: air- fluid level 11/30/2011 None Full Exam - General 1995 Ears/Nose/Throat oral cavity/pharynx/larynx Overall: oral mucosa clear 11/30/2011 None Full Exam - General 1994 Ears/Nose/Throat oral cavity/pharynx/larynx Overall: oropharyngeal mucosa clear 11/30/2011 None Full Exam - General 1994 Ears/Nose/Throat oral cavity/pharynx/larynx Overall: no masses 11/30/2011 None Full Exam - General 1994 Neck inspection of neck Overall: normal size 11/30/2011 None Full Exam - General 1994 Neck inspection of neck Overall: no masses 11/30/2011 None Full Exam - General 1994 Respiratory auscultation Overall: breath sounds clear bilaterally 11/30/2011 None Full Exam - General 1994 Respiratory respiratory effort/rhythm Overall: no retractions 11/30/2011 None Full Exam - General 1994 Respiratory respiratory effort/rhythm Overall: normal rate 11/30/2011 None Full Exam - General 1994 Cardiovascular auscultation of heart Overall: regular rate 11/30/2011 None Full Exam - General 1994 Cardiovascular auscultation of heart Overall: normal heart sounds 11/30/2011 None Full Exam - General 1994 Cardiovascular auscultation of heart Overall: no murmurs 11/30/2011 None Full Exam - General 1994 Abdomen abdominal exam Overall: no tenderness 11/30/2011 None Full Exam - General 1994 Abdomen abdominal exam Overall: normal bowel sounds 11/30/2011 None Full Exam - General 1994 Musculoskeletal head and neck Overall: head atraumatic 11/30/2011 None Full Exam - General 1994 Musculoskeletal head and neck Overall: cervical spine benign 11/30/2011 None Full Exam - General 1994 Neurologic gait Overall: no ataxia, no unsteadiness 11/30/2011 None Full Exam - General 1994 Neurologic cranial nerves Overall: crainial nerves 2 - 12 grossly intact 11/30/2011 None Full Exam - General 1994 Psychiatric orientation/consciousness Overall: oriented to person, place and time 11/30/2011 None Full Exam - General 1994 Psychiatric mood and affect Overall: normal mood and affect 11/30/2011 None Full Exam - General 1994 Constitutional general appearance Overall: well developed 11/17/2011 None Full Exam - General 1994 Constitutional general appearance Overall: in no acute distress 11/17/2011 None Full Exam - General 1994 Constitutional general appearance Overall: well nourished 11/17/2011 None Full Exam - General 1994 Eyes pupils and irises Overall: pupils equal, round, reactive to light and accomodation 11/17/2011 None Full Exam - General 1994 Ears/Nose/Throat otoscopic exam External auditory canal: a normal exam 11/17/2011 None Full Exam - General 1994 Ears/Nose/Throat otoscopic exam External auditory canal: minimal cerumen 11/17/2011 None Full Exam - General 1994 Ears/Nose/Throat otoscopic exam Tympanic membrane: air- fluid level 11/17/2011 None Full Exam - General 1994 Ears/Nose/Throat oral cavity/pharynx/larynx Overall: oral mucosa clear 11/17/2011 None Full Exam - General 1994 Ears/Nose/Throat oral cavity/pharynx/larynx Overall: oropharyngeal mucosa clear 11/17/2011 None Full Exam - General 1994 Ears/Nose/Throat oral cavity/pharynx/larynx Overall: no masses 11/17/2011 None Full Exam - General 1994 Neck inspection of neck Overall: normal size 11/17/2011 None Full Exam - General 1994 Neck inspection of neck Overall: no masses 11/17/2011 None Full Exam - General 1994 Respiratory auscultation Overall: breath sounds clear bilaterally 11/17/2011 None Full Exam - General 1994 Respiratory respiratory effort/rhythm Overall: no retractions 11/17/2011 None Full Exam - General 1994 Respiratory respiratory effort/rhythm Overall: normal rate 11/17/2011 None Full Exam - General 1994 Cardiovascular auscultation of heart Overall: regular rate 11/17/2011 None Full Exam - General 1994 Cardiovascular auscultation of heart Overall: normal heart sounds 11/17/2011 None Full Exam - General 1994 Cardiovascular auscultation of heart Overall: no murmurs 11/17/2011 None Full Exam - General 1994 Abdomen abdominal exam Overall: no tenderness 11/17/2011 None Full Exam - General 1994 Abdomen abdominal exam Overall: normal bowel sounds 11/17/2011 None Full Exam - General 1994 Musculoskeletal head and neck Overall: head atraumatic 11/17/2011 None Full Exam - General 1994 Musculoskeletal head and neck Overall: cervical spine benign 11/17/2011 None Full Exam - General 1994 Neurologic deep tendon reflexes Overall: deep tendon reflexes intact 11/17/2011 None Full Exam - General 1994 Neurologic gait Overall: no ataxia, no unsteadiness 11/17/2011 None Full Exam - General 1994 Neurologic cranial nerves Overall: crainial nerves 2 - 12 grossly intact 11/17/2011 None Full Exam - General 1994 Psychiatric orientation/consciousness Overall: oriented to person, place and time 11/17/2011 None Full Exam - General 1994 Psychiatric mood and affect Overall: normal mood and affect 11/17/2011 None Full Exam - General 1994 Constitutional general appearance Development: appears stated age 0611/03/2011 None Full Exam - General 1994 Eyes pupils and irises Overall: pupils equal, round, reactive to light and accomodation 11/03/2011 None Full Exam - General 1994 Ears/Nose/Throat otoscopic exam External auditory canal: partial cerumen occlusion 11/03/2011 None Full Exam - General 1994 Ears/Nose/Throat otoscopic exam Tympanic membrane: not visualized 11/03/2011 None Full Exam - General 1994 Ears/Nose/Throat oral cavity/pharynx/larynx Overall: oral mucosa clear 11/03/2011 None Full Exam - General 1994 Respiratory auscultation Overall: breath sounds clear bilaterally 11/03/2011 None Full Exam - General 1994 Respiratory respiratory effort/rhythm Overall: no retractions 11/03/2011 None Full Exam - General 1994 Respiratory respiratory effort/rhythm Overall: normal rate 11/03/2011 None Full Exam - General 1994 Cardiovascular extremities Edema present: pitting 11/03/2011 None Full Exam - General 1994 Cardiovascular extremities Edema present: severity 1+ - 4 +: 2+ 11/03/2011 None Full Exam - General 1994 Cardiovascular extremities Edema present: bilateral 11/03/2011 None Full Exam - General 1994 Cardiovascular extremities Edema present: to knees 11/03/2011 None Full Exam - General 1994 Cardiovascular auscultation of heart Rate: regular rate 11/03/2011 None Full Exam - General 1994 Constitutional general appearance Development: well developed 11/03/2011 None Full Exam - General 1994 Cardiovascular auscultation of heart Rhythm: regular rhythm 11/03/2011 None Full Exam - General 1994 Cardiovascular auscultation of heart S1: a normal exam 11/03/2011 None Full Exam - General 1994 Cardiovascular auscultation of heart S2: a normal exam 11/03/2011 None Full Exam - General 1994 Abdomen abdominal exam Overall: no tenderness 11/03/2011 None Full Exam - General 1995 Abdomen abdominal exam Overall: normal bowel sounds 11/03/2011 None Full Exam - General 1995 Lymphatic neck nodes Overall: anterior cervical chain benign 11/03/2011 None Full Exam - General 1994 Lymphatic neck nodes Overall: posterior cervical chain benign 11/03/2011 Maxillary and frontal sinuses tender bilaterally. Full Exam - General 1995 Integument inspection of skin Location: right foot 11/03/2011 great toe Full Exam - General 1994 Integument inspection of skin Consistency: moist 11/03/2011 in the center of the toe, debrided and wood material removed from the ulcerated callus Full Exam - General 1994 Neurologic cranial nerves Overall: crainial nerves 2 - 12 grossly intact 11/03/2011 None Full Exam - General 1994 Psychiatric mood and affect Mood: depressed 11/03/2011 None Full Exam - General 1994 Psychiatric mood and affect Affect: mood congruent 11/03/2011 None Full Exam - General 1994 Psychiatric mood and affect Appropriateness: appropriate emotional responses 11/03/2011 None Full Exam - General 1994 Eyes conjunctiva /eyelids Eyelid: edema 11/03/2011 None Full Exam - General 1994 Neurologic gait Conventional walking: unsteady 11/03/2011 None Full Exam - General 1994 Integument inspection of skin Pigmentation: ecchymosis 11/03/2011 of face, arms, abdomen Full Exam - General 1994 Psychiatric orientation/consciousness Oriented to person: yes 11/03/2011 None Full Exam - General 1994 Psychiatric orientation/consciousness Oriented to place: no 11/03/2011 None Full Exam - General 1994 Psychiatric orientation/consciousness Oriented to time: no 11/03/2011 None Full Exam - General 1994 Psychiatric orientation/consciousness Level of consciousness: lethargic 11/03/2011 None Full Exam - General 1994 Constitutional general appearance Development: well developed 10/24/2011 None Full Exam - General 1994 Constitutional general appearance Development: appears stated age 0610/24/2011 None Full Exam - General 1994 Eyes conjunctiva /eyelids Overall: conjunctiva clear 10/24/2011 None Full Exam - General 1994 Eyes pupils and irises Overall: pupils equal, round, reactive to light and accomodation 10/24/2011 None Full Exam - General 1995 Ears/Nose/Throat otoscopic exam External auditory canal: partial cerumen occlusion 10/24/2011 None Full Exam - General 1994 Ears/Nose/Throat otoscopic exam Tympanic membrane: not visualized 10/24/2011 None Full Exam - General 1994 Ears/Nose/Throat oral cavity/pharynx/larynx Overall: oral mucosa clear 10/24/2011 None Full Exam - General 1994 Respiratory auscultation Overall: breath sounds clear bilaterally 10/24/2011 None Full Exam - General 1994 Respiratory respiratory effort/rhythm Overall: no retractions 10/24/2011 None Full Exam - General 1994 Respiratory respiratory effort/rhythm Overall: normal rate 10/24/2011 None Full Exam - General 1994 Cardiovascular extremities Edema present: pitting 10/24/2011 None Full Exam - General 1994 Cardiovascular extremities Edema present: severity 1+ - 4 +: 2+ 10/24/2011 None Full Exam - General 1994 Cardiovascular extremities Edema present: bilateral 10/24/2011 None Full Exam - General 1994 Cardiovascular extremities Edema present: to knees 10/24/2011 None Full Exam - General 1994 Cardiovascular auscultation of heart Rate: regular rate 10/24/2011 None Full Exam - General 1994 Cardiovascular auscultation of heart Rhythm: regular rhythm 10/24/2011 None Full Exam - General 1994 Cardiovascular auscultation of heart S1: a normal exam 10/24/2011 None Full Exam - General 1994 Cardiovascular auscultation of heart S2: a normal exam 10/24/2011 None Full Exam - General 1994 Abdomen abdominal exam Overall: no tenderness 10/24/2011 None Full Exam - General 1994 Abdomen abdominal exam Overall: normal bowel sounds 10/24/2011 None Full Exam - General 1994 Lymphatic neck nodes Overall: anterior cervical chain benign 10/24/2011 None Full Exam - General 1994 Lymphatic neck nodes Overall: posterior cervical chain benign 10/24/2011 Maxillary and frontal sinuses tender bilaterally. Full Exam - General 1994 Neurologic deep tendon reflexes Overall: deep tendon reflexes intact 10/24/2011 None Full Exam - General 1994 Neurologic cranial nerves Overall: crainial nerves 2 - 12 grossly intact 10/24/2011 None Full Exam - General 1994 Psychiatric orientation/consciousness Overall: oriented to person, place and time 10/24/2011 None Full Exam - General 1994 Psychiatric mood and affect Mood: depressed 10/24/2011 None Full Exam - General 1994 Psychiatric mood and affect Affect: mood congruent 10/24/2011 None Full Exam - General 1994 Psychiatric mood and affect Appropriateness: appropriate emotional responses 10/24/2011 None Full Exam - General 1994 Integument inspection of skin Location: right foot 10/24/2011 great toe Full Exam - General 1995 Integument inspection of skin Consistency: moist 10/24/2011 in the center of the toe, debrided and wood material removed from the ulcerated callus Full Exam - General 1994 Lymphatic neck nodes Overall: posterior cervical chain benign 09/26/2011 Maxillary and frontal sinuses tender bilaterally. Full Exam - General 1994 Neurologic deep tendon reflexes Overall: deep tendon reflexes intact 09/26/2011 None Full Exam - General 1994 Neurologic cranial nerves Overall: crainial nerves 2 - 12 grossly intact 09/26/2011 None Full Exam - General 1994 Psychiatric orientation/consciousness Overall: oriented to person, place and time 09/26/2011 None Full Exam - General 1994 Psychiatric mood and affect Mood: depressed 09/26/2011 None Full Exam - General 1994 Psychiatric mood and affect Affect: mood congruent 09/26/2011 None Full Exam - General 1994 Psychiatric mood and affect Appropriateness: appropriate emotional responses 09/26/2011 None Full Exam - General 1994 Respiratory auscultation Overall: breath sounds clear bilaterally 09/26/2011 None Full Exam - General 1994 Respiratory respiratory effort/rhythm Overall: no retractions 09/26/2011 None Full Exam - General 1994 Respiratory respiratory effort/rhythm Overall: normal rate 09/26/2011 None Full Exam - General 1994 Ears/Nose/Throat otoscopic exam External auditory canal: partial cerumen occlusion 09/26/2011 None Full Exam - General 1994 Ears/Nose/Throat otoscopic exam Tympanic membrane: not visualized 09/26/2011 None Full Exam - General 1994 Abdomen abdominal exam Overall: no tenderness 09/26/2011 None Full Exam - General 1994 Abdomen abdominal exam Overall: normal bowel sounds 09/26/2011 None Full Exam - General 1994 Cardiovascular auscultation of heart Rhythm: regular rhythm 09/26/2011 None Full Exam - General 1994 Cardiovascular auscultation of heart S1: a normal exam 09/26/2011 None Full Exam - General 1994 Cardiovascular auscultation of heart S2: a normal exam 09/26/2011 None Full Exam - General 1994 Constitutional general appearance Development: well developed 09/26/2011 None Full Exam - General 1994 Constitutional general appearance Development: appears stated age 0509/26/2011 None Full Exam - General 1994 Ears/Nose/Throat oral cavity/pharynx/larynx Overall: oral mucosa clear 09/26/2011 None Full Exam - General 1994 Eyes conjunctiva /eyelids Overall: conjunctiva clear 09/26/2011 None Full Exam - General 1994 Eyes pupils and irises Overall: pupils equal, round, reactive to light and accomodation 09/26/2011 None Full Exam - General 1994 Lymphatic neck nodes Overall: anterior cervical chain benign 09/26/2011 None Full Exam - General 1994 Cardiovascular extremities Edema present: pitting 09/26/2011 --Improved Full Exam - General 1994 Cardiovascular extremities Edema present: severity 1+ - 4 +: 2+ 09/26/2011 --Improved Full Exam - General 1994 Cardiovascular extremities Edema present: bilateral 09/26/2011 --Improved Full Exam - General 1994 Cardiovascular extremities Edema present: to knees 09/26/2011 --Improved Full Exam - General 1994 Cardiovascular auscultation of heart Rate: regular rate 09/26/2011 None Full Exam - General 1994 Cardiovascular auscultation of heart S2: a normal exam 09/20/2011 None Full Exam - General 1994 Abdomen abdominal exam Overall: no tenderness 09/20/2011 None Full Exam - General 1994 Abdomen abdominal exam Overall: normal bowel sounds 09/20/2011 None Full Exam - General 1994 Lymphatic neck nodes Overall: anterior cervical chain benign 09/20/2011 None Full Exam - General 1994 Lymphatic neck nodes Overall: posterior cervical chain benign 09/20/2011 Maxillary and frontal sinuses tender bilaterally. Full Exam - General 1994 Neurologic deep tendon reflexes Overall: deep tendon reflexes intact 09/20/2011 None Full Exam - General 1994 Neurologic cranial nerves Overall: crainial nerves 2 - 12 grossly intact 09/20/2011 None Full Exam - General 1994 Psychiatric orientation/consciousness Overall: oriented to person, place and time 09/20/2011 None Full Exam - General 1994 Psychiatric mood and affect Mood: depressed 09/20/2011 None Full Exam - General 1994 Psychiatric mood and affect Affect: mood congruent 09/20/2011 None Full Exam - General 1994 Psychiatric mood and affect Appropriateness: appropriate emotional responses 09/20/2011 None Full Exam - General 1994 Cardiovascular auscultation of heart Rate: regular rate 09/20/2011 None Full Exam - General 1994 Cardiovascular extremities Edema present: pitting 09/20/2011 None Full Exam - General 1994 Cardiovascular extremities Edema present: to knees 09/20/2011 None Full Exam - General 1994 Constitutional general appearance Development: well developed 09/20/2011 None Full Exam - General 1994 Constitutional general appearance Development: appears stated age 0509/20/2011 None Full Exam - General 1994 Eyes conjunctiva /eyelids Overall: conjunctiva clear 09/20/2011 None Full Exam - General 1994 Eyes pupils and irises Overall: pupils equal, round, reactive to light and accomodation 09/20/2011 None Full Exam - General 1994 Ears/Nose/Throat oral cavity/pharynx/larynx Overall: oral mucosa clear 09/20/2011 None Full Exam - General 1994 Respiratory auscultation Overall: breath sounds clear bilaterally 09/20/2011 None Full Exam - General 1994 Respiratory respiratory effort/rhythm Overall: no retractions 09/20/2011 None Full Exam - General 1994 Respiratory respiratory effort/rhythm Overall: normal rate 09/20/2011 None Full Exam - General 1994 Cardiovascular auscultation of heart Rhythm: regular rhythm 09/20/2011 None Full Exam - General 1994 Cardiovascular auscultation of heart S1: a normal exam 09/20/2011 None Full Exam - General 1994 Cardiovascular extremities Edema present: severity 1+ - 4 +: 2+ 09/20/2011 None Full Exam - General 1994 Cardiovascular extremities Edema present: bilateral 09/20/2011 None Full Exam - General 1994 Ears/Nose/Throat otoscopic exam External auditory canal: partial cerumen occlusion 09/20/2011 None Full Exam - General 1994 Ears/Nose/Throat otoscopic exam Tympanic membrane: not visualized 09/20/2011 None Full Exam - General 1994 Ears/Nose/Throat internal nose Drainage: clear 09/01/2011 None Full Exam - General 1994 Neck inspection of neck Overall: normal size 09/01/2011 None Full Exam - General 1994 Neck inspection of neck Overall: normal appearance 09/01/2011 None Full Exam - General 1994 Neck inspection of neck Overall: no masses 09/01/2011 None Full Exam - General 1994 Neck inspection of neck Overall: absence of swelling 09/01/2011 None Full Exam - General 1994 Respiratory auscultation Overall: breath sounds clear bilaterally 09/01/2011 None Full Exam - General 1994 Respiratory respiratory effort/rhythm Overall: no retractions 09/01/2011 None Full Exam - General 1994 Constitutional general appearance Overall: well developed 09/01/2011 None Full Exam - General 1994 Constitutional general appearance Overall: in no acute distress 09/01/2011 None Full Exam - General 1994 Constitutional general appearance Overall: well nourished 09/01/2011 None Full Exam - General 1994 Eyes pupils and irises Overall: pupils equal, round, reactive to light and accomodation 09/01/2011 None Full Exam - General 1995 Ears/Nose/Throat external ear Overall: normal appearance 09/01/2011 None Full Exam - General 1995 Ears/Nose/Throat external ear Overall: no masses 09/01/2011 None Full Exam - General 1995 Ears/Nose/Throat external ear Overall: normal mastoids 09/01/2011 None Full Exam - General 1995 Ears/Nose/Throat otoscopic exam External auditory canal: a normal exam 09/01/2011 None Full Exam - General 1995 Ears/Nose/Throat otoscopic exam External auditory canal: partial cerumen occlusion 09/01/2011 None Full Exam - General 1995 Ears/Nose/Throat otoscopic exam Tympanic membrane: a normal exam 09/01/2011 None Full Exam - General 1995 Ears/Nose/Throat otoscopic exam Tympanic membrane: not visualized 09/01/2011 None Full Exam - General 1994 Ears/Nose/Throat internal nose Overall: bilateral nasal cavities clear 09/01/2011 None Full Exam - General 1994 Ears/Nose/Throat internal nose Turbinates: erythema 09/01/2011 None Full Exam - General 1994 Respiratory respiratory effort/rhythm Overall: normal rate 09/01/2011 None Full Exam - General 1994 Cardiovascular auscultation of heart Overall: regular rate 09/01/2011 None Full Exam - General 1994 Cardiovascular auscultation of heart Overall: normal heart sounds 09/01/2011 tachycardia Full Exam - General 1994 Cardiovascular auscultation of heart Overall: no murmurs 09/01/2011 None Full Exam - General 1994 Neurologic mental status Overall: alert 09/01/2011 None Full Exam - General 1994 Neurologic mental status Overall: oriented 09/01/2011 None Full Exam - General 1994 Psychiatric orientation/consciousness Oriented to person: yes 09/01/2011 None Full Exam - General 1994 Psychiatric orientation/consciousness Oriented to place: yes 09/01/2011 None Full Exam - General 1994 Psychiatric orientation/consciousness Oriented to time: yes 09/01/2011 None Full Exam - General 1994 Psychiatric orientation/consciousness Level of consciousness: alert 09/01/2011 None Full Exam - General 1994 Lymphatic neck nodes Overall: shotty lymphadenopathy 09/01/2011 None Full Exam - General 1994 Constitutional general appearance Overall: well nourished 08/15/2011 None Full Exam - General 1994 Constitutional general appearance Overall: well developed 08/15/2011 None Full Exam - General 1994 Constitutional general appearance Overall: in no acute distress 08/15/2011 None Full Exam - General 1994 Eyes pupils and irises Overall: pupils equal, round, reactive to light and accomodation 08/15/2011 None Full Exam - General 1994 Eyes conjunctiva /eyelids Overall: conjunctiva clear 08/15/2011 None Full Exam - General 1994 Eyes conjunctiva /eyelids Overall: eyelids normal 08/15/2011 None Full Exam - General 1994 Eyes conjunctiva /eyelids Overall: cornea clear 08/15/2011 None Full Exam - General 1994 Ears/Nose/Throat otoscopic exam External auditory canal: a normal exam 08/15/2011 None Full Exam - General 1994 Ears/Nose/Throat otoscopic exam External auditory canal: partial cerumen occlusion 08/15/2011 None Full Exam - General 1994 Ears/Nose/Throat otoscopic exam Tympanic membrane: a normal exam 08/15/2011 None Full Exam - General 1994 Ears/Nose/Throat otoscopic exam Tympanic membrane: not visualized 08/15/2011 None Full Exam - General 1994 Ears/Nose/Throat external ear Overall: no masses 08/15/2011 None Full Exam - General 1994 Ears/Nose/Throat external ear Overall: normal appearance 08/15/2011 None Full Exam - General 1994 Ears/Nose/Throat external ear Overall: normal mastoids 08/15/2011 None Full Exam - General 1994 Ears/Nose/Throat internal nose Overall: bilateral nasal cavities clear 08/15/2011 None Full Exam - General 1994 Ears/Nose/Throat internal nose Turbinates: erythema 08/15/2011 None Full Exam - General 1994 Ears/Nose/Throat internal nose Drainage: clear 08/15/2011 None Full Exam - General 1994 Ears/Nose/Throat lips/teeth/gingiva Overall: benign lips 08/15/2011 None Full Exam - General 1995 Ears/Nose/Throat lips/teeth/gingiva Overall: normal dentition 08/15/2011 None Full Exam - General 1995 Ears/Nose/Throat lips/teeth/gingiva Overall: benign gingiva 08/15/2011 None Full Exam - General 1994 Ears/Nose/Throat lips/teeth/gingiva Overall: no masses 08/15/2011 None Full Exam - General 1995 Neck inspection of neck Overall: normal size 08/15/2011 None Full Exam - General 1994 Neck inspection of neck Overall: normal appearance 08/15/2011 None Full Exam - General 1994 Neck inspection of neck Overall: no masses 08/15/2011 None Full Exam - General 1994 Neck inspection of neck Overall: absence of swelling 08/15/2011 None Full Exam - General 1994 Respiratory auscultation Overall: breath sounds clear bilaterally 08/15/2011 None Full Exam - General 1994 Respiratory respiratory effort/rhythm Overall: no retractions 08/15/2011 None Full Exam - General 1994 Respiratory respiratory effort/rhythm Overall: normal rate 08/15/2011 None Full Exam - General 1994 Cardiovascular auscultation of heart Overall: regular rate 08/15/2011 None Full Exam - General 1994 Cardiovascular auscultation of heart Overall: normal heart sounds 08/15/2011 tachycardia Full Exam - General 1994 Cardiovascular auscultation of heart Overall: no murmurs 08/15/2011 None Full Exam - General 1994 Abdomen abdominal exam Overall: no tenderness 08/15/2011 None Full Exam - General 1994 Abdomen abdominal exam Overall: normal bowel sounds 08/15/2011 None Full Exam - General 1994 Integument inspection of skin Overall: no rash, lesions 08/15/2011 None Full Exam - General 1994 Neurologic mental status Overall: alert 08/15/2011 None Full Exam - General 1994 Neurologic mental status Overall: oriented 08/15/2011 None Full Exam - General 1994 Psychiatric orientation/consciousness Oriented to person: yes 08/15/2011 None Full Exam - General 1994 Psychiatric orientation/consciousness Oriented to place: yes 08/15/2011 None Full Exam - General 1994 Psychiatric orientation/consciousness Oriented to time: yes 08/15/2011 None Full Exam - General 1994 Psychiatric orientation/consciousness Level of consciousness: alert 08/15/2011 None Full Exam - General 1994 Lymphatic neck nodes Overall: anterior cervical chain benign 08/09/2011 None Full Exam - General 1994 Respiratory respiratory effort/rhythm Overall: normal rate 08/09/2011 None Full Exam - General 1994 Respiratory respiratory effort/rhythm Overall: no retractions 08/09/2011 None Full Exam - General 1994 Cardiovascular auscultation of heart Rate: tachycardia 08/09/2011 None Full Exam - General 1994 Cardiovascular auscultation of heart Rhythm: regular rhythm 08/09/2011 None Full Exam - General 1994 Cardiovascular auscultation of heart S1: a normal exam 08/09/2011 None Full Exam - General 1994 Cardiovascular auscultation of heart S2: a normal exam 08/09/2011 None Full Exam - General 1994 Abdomen abdominal exam Overall: no tenderness 08/09/2011 None Full Exam - General 1994 Psychiatric mood and affect Mood: depressed 08/09/2011 None Full Exam - General 1994 Psychiatric mood and affect Mood: anxious 08/09/2011 None Full Exam - General 1994 Psychiatric mood and affect Affect: mood congruent 08/09/2011 None Full Exam - General 1994 Psychiatric mood and affect Appropriateness: appropriate emotional responses 08/09/2011 None Full Exam - General 1994 Eyes pupils and irises Overall: pupils equal, round, reactive to light and accomodation 08/09/2011 None Full Exam - General 1994 Ears/Nose/Throat otoscopic exam External auditory canal: a normal exam 08/09/2011 None Full Exam - General 1994 Ears/Nose/Throat otoscopic exam External auditory canal: erythematous 08/09/2011 None Full Exam - General 1994 Ears/Nose/Throat otoscopic exam Tympanic membrane: air- fluid level 08/09/2011 None Full Exam - General 1994 Ears/Nose/Throat oral cavity/pharynx/larynx Overall: oral mucosa clear 08/09/2011 None Full Exam - General 1994 Respiratory auscultation Overall: breath sounds clear bilaterally 08/09/2011 None Full Exam - General 1994 Constitutional general appearance Development: well developed 08/09/2011 None Full Exam - General 1994 Constitutional general appearance Development: appears stated age 0308/09/2011 None Full Exam - General 1994 Eyes conjunctiva /eyelids Overall: conjunctiva clear 08/09/2011 None Full Exam - General 1994 Abdomen abdominal exam Overall: normal bowel sounds 08/09/2011 None Full Exam - General 1994 Lymphatic neck nodes Overall: posterior cervical chain benign 08/09/2011 Maxillary and frontal sinuses tender bilaterally. Full Exam - General 1994 Neurologic deep tendon reflexes Overall: deep tendon reflexes intact 08/09/2011 None Full Exam - General 1994 Neurologic cranial nerves Overall: crainial nerves 2 - 12 grossly intact 08/09/2011 None Full Exam - General 1994 Psychiatric orientation/consciousness Overall: oriented to person, place and time 08/09/2011 None Full Exam - General 1994 Constitutional general appearance Overall: well developed 08/01/2011 None Full Exam - General 1994 Constitutional general appearance Overall: in no acute distress 08/01/2011 None Full Exam - General 1994 Constitutional general appearance Overall: well nourished 08/01/2011 None Full Exam - General 1994 Eyes pupils and irises Overall: pupils equal, round, reactive to light and accomodation 08/01/2011 None Full Exam - General 1994 Ears/Nose/Throat otoscopic exam External auditory canal: a normal exam 08/01/2011 None Full Exam - General 1994 Ears/Nose/Throat otoscopic exam External auditory canal: minimal cerumen 08/01/2011 None Full Exam - General 1994 Ears/Nose/Throat otoscopic exam Tympanic membrane: air- fluid level 08/01/2011 None Full Exam - General 1995 Ears/Nose/Throat oral cavity/pharynx/larynx Overall: oral mucosa clear 08/01/2011 None Full Exam - General 1994 Ears/Nose/Throat oral cavity/pharynx/larynx Overall: oropharyngeal mucosa clear 08/01/2011 None Full Exam - General 1994 Ears/Nose/Throat oral cavity/pharynx/larynx Overall: no masses 08/01/2011 None Full Exam - General 1994 Neurologic gait Overall: no ataxia, no unsteadiness 08/01/2011 None Full Exam - General 1994 Neurologic cranial nerves Overall: crainial nerves 2 - 12 grossly intact 08/01/2011 None Full Exam - General 1994 Psychiatric orientation/consciousness Overall: oriented to person, place and time 08/01/2011 None Full Exam - General 1994 Psychiatric mood and affect Overall: normal mood and affect 08/01/2011 None Full Exam - General 1994 Musculoskeletal spine, ribs and pelvis Sacroiliac joints: tender left sacroiliac joint 08/01/2011 None Full Exam - General 1994 Neck inspection of neck Overall: normal size 08/01/2011 None Full Exam - General 1994 Neck inspection of neck Overall: no masses 08/01/2011 None Full Exam - General 1994 Respiratory auscultation Overall: breath sounds clear bilaterally 08/01/2011 None Full Exam - General 1994 Respiratory respiratory effort/rhythm Overall: no retractions 08/01/2011 None Full Exam - General 1994 Respiratory respiratory effort/rhythm Overall: normal rate 08/01/2011 None Full Exam - General 1994 Cardiovascular auscultation of heart Overall: regular rate 08/01/2011 None Full Exam - General 1994 Cardiovascular auscultation of heart Overall: normal heart sounds 08/01/2011 None Full Exam - General 1994 Cardiovascular auscultation of heart Overall: no murmurs 08/01/2011 None Full Exam - General 1995 Abdomen abdominal exam Overall: no tenderness 08/01/2011 None Full Exam - General 1994 Abdomen abdominal exam Overall: normal bowel sounds 08/01/2011 None Full Exam - General 1994 Musculoskeletal head and neck Overall: head atraumatic 08/01/2011 None Full Exam - General 1994 Musculoskeletal head and neck Overall: cervical spine benign 08/01/2011 None Full Exam - General 1994 Neurologic deep tendon reflexes Overall: deep tendon reflexes intact 08/01/2011 None Full Exam - General 1994 Constitutional general appearance Overall: well nourished 06/20/2011 None Full Exam - General 1995 Constitutional general appearance Overall: well developed 06/20/2011 None Full Exam - General 1994 Constitutional general appearance Overall: in no acute distress 06/20/2011 None Full Exam - General 1994 Eyes pupils and irises Overall: pupils equal, round, reactive to light and accomodation 06/20/2011 None Full Exam - General 1994 Psychiatric orientation/consciousness Overall: oriented to person, place and time 06/20/2011 None Full Exam - General 1994 Psychiatric mood and affect Overall: normal mood and affect 06/20/2011 None Full Exam - General 1994 Neurologic gait Overall: no ataxia, no unsteadiness 06/20/2011 None Full Exam - General 1994 Neurologic cranial nerves Overall: crainial nerves 2 - 12 grossly intact 06/20/2011 None Full Exam - General 1994 Neurologic deep tendon reflexes Overall: deep tendon reflexes intact 06/20/2011 None Full Exam - General 1994 Abdomen abdominal exam Overall: no tenderness 06/20/2011 None Full Exam - General 1994 Abdomen abdominal exam Overall: normal bowel sounds 06/20/2011 None Full Exam - General 1994 Cardiovascular auscultation of heart Overall: regular rate 06/20/2011 None Full Exam - General 1994 Cardiovascular auscultation of heart Overall: normal heart sounds 06/20/2011 None Full Exam - General 1994 Cardiovascular auscultation of heart Overall: no murmurs 06/20/2011 None Full Exam - General 1994 Respiratory auscultation Overall: breath sounds clear bilaterally 06/20/2011 None Full Exam - General 1994 Respiratory respiratory effort/rhythm Overall: normal rate 06/20/2011 None Full Exam - General 1994 Respiratory respiratory effort/rhythm Overall: no retractions 06/20/2011 None Full Exam - General 1994 Musculoskeletal head and neck Overall: cervical spine benign 06/20/2011 None Full Exam - General 1994 Musculoskeletal head and neck Overall: head atraumatic 06/20/2011 None Full Exam - General 1994 Neck inspection of neck Overall: normal size 06/20/2011 None Full Exam - General 1994 Neck inspection of neck Overall: no masses 06/20/2011 None Full Exam - General 1994 Ears/Nose/Throat otoscopic exam External auditory canal: a normal exam 06/20/2011 None Full Exam - General 1994 Ears/Nose/Throat otoscopic exam External auditory canal: minimal cerumen 06/20/2011 None Full Exam - General 1994 Ears/Nose/Throat otoscopic exam Tympanic membrane: air- fluid level 06/20/2011 None Full Exam - General 1994 Ears/Nose/Throat oral cavity/pharynx/larynx Overall: oral mucosa clear 06/20/2011 None Full Exam - General 1994 Ears/Nose/Throat oral cavity/pharynx/larynx Overall: oropharyngeal mucosa clear 06/20/2011 None Full Exam - General 1994 Ears/Nose/Throat oral cavity/pharynx/larynx Overall: no masses 06/20/2011 None Full Exam - Cardiology Lymphatic neck nodes Overall: shotty lymphadenopathy 04/18/2011 None Full Exam - Cardiology Musculoskeletal gait and station Overall: normal gait 04/18/2011 None Full Exam - Cardiology Neurologic cranial nerves Overall: cranial nerves 1- 12 intact 04/18/2011 None Full Exam - Cardiology Psychiatric mood and affect Overall: normal mood and affect 04/18/2011 None Full Exam - Cardiology Psychiatric orientation/consciousness Overall: oriented to person, place and time 04/18/2011 None Full Exam - Cardiology Respiratory auscultation Overall: breath sounds clear bilaterally 04/18/2011 None Full Exam - Cardiology Respiratory respiratory effort/rhythm Overall: no retractions 04/18/2011 None Full Exam - Cardiology Cardiovascular auscultation of heart Overall: normal heart sounds 04/18/2011 None Full Exam - Cardiology Cardiovascular auscultation of heart Overall: regular rate 04/18/2011 None Full Exam - Cardiology Cardiovascular extremities Overall: no clubbing 04/18/2011 None Full Exam - Cardiology Constitutional general appearance Nourishment: well nourished 04/18/2011 None Full Exam - Cardiology Constitutional general appearance Overall: in no acute distress 04/18/2011 None Full Exam - Cardiology Constitutional general appearance Overall: well developed 04/18/2011 None Full Exam - Cardiology Constitutional general appearance Overall: well nourished 04/18/2011 None Full Exam - Cardiology Ears/Nose/Throat oral mucosa Oral mucosa: moist 04/18/2011 None Full Exam - Cardiology Ears/Nose/Throat teeth/gingiva/palate Overall: normal dentition 04/18/2011 None Procedures Procedure Codes Date GLUC MONITOR CONT PHYS I&R CPT-4: 04551 04/27/2018 URINALYSIS NONAUTO W/O SCOPE CPT-4: 62576 04/10/2018 GLUCOSE MONITORING CONT CPT-4: 58933 04/10/2018 OCCULT BLOOD FECES CPT -4: 87158 02/22/2018 URINALYSIS NONAUTO W/O SCOPE CPT-4: 82707 02/20/2018 URINALYSIS NONAUTO W/O SCOPE CPT-4: 96850 12/14/2017 URINALYSIS NONAUTO W/O SCOPE CPT-4: 48056 11/27/2017 PPPS, SUBSEQ VISIT CPT -4: G0439 10/27/2017 GLUCOSE MONITORING CONT CPT-4: 98404 09/27/2017 URINALYSIS NONAUTO W/O SCOPE CPT-4: 51121 06/30/2017 URINALYSIS NONAUTO W/O SCOPE CPT-4: 39342 11/25/2016 URINALYSIS NONAUTO W/O SCOPE CPT-4: 92633 10/21/2016 URINALYSIS NONAUTO W/O SCOPE CPT-4: 91091 06/24/2016 URINALYSIS NONAUTO W/O SCOPE CPT-4: 45828 04/11/2016 ADMIN PNEUMOCOCCAL VACCINE SNOMED CT: [id number] CPT-4: G0009 02/26/2016 PNEUMOCOCCAL VACC 13 ANURADHA IM Formatting Model/CDA Sections, Assigned to/Jada Velazquez SNOMED CT: [id number] CPT-4: 07219Uvlthac 02/26/2016 URINALYSIS NONAUTO W/O SCOPE CPT-4: 20407 02/10/2016 URINALYSIS NONAUTO W/O SCOPE CPT-4: 16937 11/27/2015 URINALYSIS NONAUTO W/O SCOPE CPT-4: 99633 11/02/2015 INITIAL PREVENTIVE EXAM CPT-4: G0402 09/29/2015 URINALYSIS NONAUTO W/O SCOPE CPT-4: 54689 07/20/2015 TRIAMCINOLONE ACET INJ NOS CPT-4: J3301 06/26/2015 URINALYSIS NONAUTO W/O SCOPE CPT-4: 99792 11/05/2014 URINALYSIS NONAUTO W/O SCOPE CPT-4: 79460 04/21/2014 CULTURE AEROBIC IDENTIFY CPT-4: 15260 12/12/2013 URINALYSIS NONAUTO W/O SCOPE CPT-4: 88655 11/18/2013 ROUTINE VENIPUNCTURE CPT-4: 15001 09/10/2013 ROUTINE VENIPUNCTURE CPT-4: 65705 08/01/2013 URINALYSIS NONAUTO W/O SCOPE CPT-4: 23551 06/28/2013 TRIAMCINOLONE ACET INJ NOS CPT-4: J3301 05/07/2013 DRAIN/INJECT JOINT/BURSA CPT-4: 87975 05/07/2013 ROUTINE VENIPUNCTURE CPT-4: 64743 03/21/2013 ROUTINE VENIPUNCTURE CPT-4: 27649 01/17/2013 URINALYSIS NONAUTO W/O SCOPE CPT-4: 15272 01/01/2013 ROUTINE VENIPUNCTURE CPT-4: 94724 12/31/2012 ROUTINE VENIPUNCTURE CPT-4: 85822 12/20/2012 URINALYSIS NONAUTO W/O SCOPE CPT-4: 06554 11/05/2012 DRAIN/INJECT JOINT/BURSA CPT-4: 85361 09/21/2012 TRIAMCINOLONE ACET INJ NOS CPT-4: J3301 09/21/2012 URINALYSIS NONAUTO W/O SCOPE CPT-4: 36010 07/19/2012 TRIAMCINOLONE ACET INJ NOS CPT-4: J3301 07/06/2012 Pneumococcal Polysaccharide Vaccine, 23-Valent, Ad CPT-4: 21920 06/07/2012 IMMUNIZATION ADMIN CPT -4: 35844 06/07/2012 TRIAMCINOLONE ACET INJ NOS CPT-4: J3301 05/02/2012 ROUTINE VENIPUNCTURE CPT-4: 96721 02/01/2012 URINALYSIS NONAUTO W/O SCOPE CPT-4: 41248 02/01/2012 TRIAMCINOLONE ACET INJ NOS CPT-4: J3301 12/14/2011 INJ TRIGGER POINT 1/2 MUSCL CPT-4: 14560 12/14/2011 PROMETHAZINE HCL INJECTION CPT-4: J2550 11/30/2011 ROUTINE VENIPUNCTURE CPT-4: 77065 11/30/2011 TRIAMCINOLONE ACET INJ NOS CPT-4: J3301 08/01/2011 DRAIN/INJECT JOINT/BURSA CPT-4: 29111 08/01/2011 THER/PROPH/DIAG INJ SC/IM CPT-4: 48535 04/18/2011 TRIAMCINOLONE ACET INJ NOS CPT-4: J3301 04/18/2011 Vital Signs Date Vital 05/21/2018 Blood Pressure 1: 98/66 Code : 8480-6 Heart Rate 1: 76 bpm Height: 5'2" SpO2: 99% Weight: 05/16/2018 BMI: 39.7 Code: 23352-8 Heart Rate 1: 82 bpm Height: 5'2" SpO2: 99% Temperature: 35.8 (C) / 96.5 (F) Weight: 217 lbs 04/27/2018 Blood Pressure 1: 122/54 Code : 8480-6 BMI: 39.7 Code : 16314-1 Heart Rate 1 : 84 bpm Height: 5'2" SpO2: 92% 04/10/2018 Blood Pressure 1: 120/68 Code : 8480-6 BMI: 39.7 Code : 14526-0 Heart Rate 1 : 87 bpm Height: 5'2" SpO2: 99% Weight: 217 lbs 03/12/2018 Blood Pressure 1: 140/70 Code : 8480-6 BMI: 40.2 Code : 69719-9 Heart Rate 1 : 78 bpm Height: 5'2" SpO2: 98% Weight: 220 lbs 02/20/2018 Blood Pressure 1: 140/70 Code : 8480-6 BMI: 40.2 Code : 89741-3 Heart Rate 1 : 96 bpm Height: 5'2" SpO2: 93% Weight: 220 lbs 11/27/2017 Blood Pressure 1: 158/78 Code : 8480-6 BMI: 40.8 Code : 46719-2 Heart Rate 1 : 100 bpm Height: 5'2" SpO2: 95% Weight: 223 lbs 10/27/2017 Blood Pressure 1: 146/70 Code : 8480-6 BMI: 41.3 Code : 73493-8 Heart Rate 1 : 82 bpm Height: 5'2" SpO2: 99% Waist Measure (cm): 119 cm Weight: 226 lbs 09/15/2017 Blood Pressure 1: 136/66 Code : 8480-6 BMI: 41.5 Code : 40075-3 Heart Rate 1 : 94 bpm Height: 5'2" SpO2: 96% Weight: 227 lbs 08/18/2017 Blood Pressure 1: 120/68 Code : 8480-6 BMI: 41.5 Code : 20201-5 Heart Rate 1 : 87 bpm Height: 5'2" SpO2: 94% Weight: 227 lbs 08/03/2017 Blood Pressure 1: 132/72 Code : 8480-6 BMI: 41.5 Code : 71101-0 Heart Rate 1 : 93 bpm Height: 5'2" SpO2: 95% Weight: 227 lbs 07/27/2017 Blood Pressure 1: 128/84 Code : 8480-6 BMI: 41.5 Code : 09619-6 Heart Rate 1 : 91 bpm Height: 5'2" SpO2: 98% Weight: 227 lbs 06/13/2017 Blood Pressure 1: 136/84 Code : 8480-6 BMI: 42.6 Code : 99636-3 Heart Rate 1 : 91 bpm Height: 5'2" SpO2: 94% Weight: 233 lbs 04/21/2017 Blood Pressure 1: 142/84 Code : 8480-6 BMI: 42.8 Code : 69953-5 Heart Rate 1 : 89 bpm Height: 5'2" SpO2: 94% Weight: 234 lbs 04/18/2017 Blood Pressure 1: 140/86 Code : 8480-6 BMI: 42.8 Code : 20056-8 Heart Rate 1 : 89 bpm Height: 5'2" SpO2: 97% Weight: 234 lbs 03/27/2017 Blood Pressure 1: 148/76 Code : 8480-6 BMI: 42.6 Code : 74607-6 Heart Rate 1 : 92 bpm Height: 5'2" SpO2: 98% Temperature: 36.2 (C) / 97.1 (F) Weight: 233 lbs 02/27/2017 Blood Pressure 1: 124/78 Code : 8480-6 Heart Rate 1: 92 bpm Height: 5'2" SpO2: 95% Weight: 02/21/2017 Blood Pressure 1: 136/70 Code : 8480-6 Heart Rate 1: 84 bpm Height: 5'2" SpO2: 97% Weight: 02/17/2017 Blood Pressure 1: 128/72 Code : 8480-6 Heart Rate 1: 89 bpm Height: SpO2: 95% Temperature: 36.6 (C) / 97.9 (F) Weight: 02/13/2017 Blood Pressure 1: 142/70 Code : 8480-6 BMI: 44.3 Code : 49295-3 Heart Rate 1 : 90 bpm Height: 5'2" SpO2: 96% Weight: 242 lbs 01/30/2017 Blood Pressure 1: 132/72 Code : 8480-6 Heart Rate 1: 97 bpm Height: 5'2" SpO2: 96% Weight: 01/16/2017 Blood Pressure 1: 138/76 Code : 8480-6 BMI: 43.3 Code : 65663-0 Heart Rate 1 : 84 bpm Height: 5'2" SpO2: 99% Weight: 237 lbs 12/13/2016 Blood Pressure 1: 14478 Code : 8480-6 Heart Rate 1: 96 bpm Height: 5'2" SpO2: 98% Temperature: 36.6 (C) / 97.9 (F) Weight: 11/11/2016 Blood Pressure 1: 144/80 Code : 8480-6 BMI: 43.0 Code : 99174-3 Heart Rate 1 : 89 bpm Height: 5'2" SpO2: 94% Temperature: 36.1 (C) / 97.0 (F) Weight: 235 lbs 10/28/2016 Blood Pressure 1: 156/82 Code : 8480-6 BMI: 43.9 Code : 43966-0 Heart Rate 1 : 78 bpm Height: 5'2" SpO2: 98% Temperature: 36.0 (C) / 96.8 (F) Weight: 240 lbs 10/13/2016 Blood Pressure 1: 13878 Code : 8480-6 Heart Rate 1: 80 bpm Height: SpO2: 98% Weight: 09/23/2016 Blood Pressure 1: 14276 Code : 8480-6 Heart Rate 1: 87 bpm Height: 5'2" SpO2: 98% Temperature: 35.9 (C) / 96.6 (F) Weight: 09/13/2016 Blood Pressure 1: 150/98 Code : 8480-6 BMI: 42.4 Code : 43051-3 Heart Rate 1 : 95 bpm Height: 5'2" SpO2: 98% Weight: 232 lbs 08/09/2016 Blood Pressure 1: 138/80 Code : 8480-6 BMI: 41.0 Code : 91864-2 Heart Rate 1 : 98 bpm Height: 5'2" SpO2: 97% Weight: 224 lbs 07/26/2016 Blood Pressure 1: 148/82 Code : 8480-6 BMI: 42.4 Code : 95638-0 Heart Rate 1 : 89 bpm Height: 5'2" SpO2: 97% Weight: 232 lbs 05/24/2016 Blood Pressure 1: 146/72 Code : 8480-6 BMI: 42.4 Code : 48663-2 Heart Rate 1 : 89 bpm Height: 5'2" SpO2: 99% Weight: 232 lbs 04/19/2016 Blood Pressure 1: 130/88 Code : 8480-6 BMI: 42.4 Code : 82628-2 Heart Rate 1 : 88 bpm Height: 5'2" SpO2: 98% Weight: 232 lbs 04/11/2016 Blood Pressure 1: 140/80 Code : 8480-6 BMI: 41.7 Code : 71588-7 Heart Rate 1 : 97 bpm Height: 5'2" SpO2: 95% Weight: 228 lbs 03/21/2016 Blood Pressure 1: 138/80 Code : 8480-6 BMI: 44.4 Code : 16504-2 Height: 5'2" Weight: 243 lbs 03/11/2016 Blood Pressure 1: 138/82 Code : 8480-6 BMI: 44.4 Code : 52738-6 Heart Rate 1 : 86 bpm Height: 5'2" SpO2: 95% Weight: 243 lbs 02/26/2016 Blood Pressure 1: 130/82 Code : 8480-6 BMI: 43.9 Code : 69505-6 Heart Rate 1 : 86 bpm Height: 5'2" SpO2: 97% Weight: 240 lbs 02/02/2016 Blood Pressure 1: 136/86 Code : 8480-6 Heart Rate 1: 56 bpm Height: SpO2: 96% Weight: 12/17/2015 Blood Pressure 1: 140/80 Code : 8480-6 BMI: 40.2 Code : 53949-0 Heart Rate 1 : 100 bpm Height: 5'2" SpO2: 99% Weight: 220 lbs 12/08/2015 Blood Pressure 1: 132/86 Code : 8480-6 Heart Rate 1: 100 bpm Height: SpO2: 97% Weight: 11/27/2015 Blood Pressure 1: 128/82 Code : 8480-6 BMI: 39.3 Code : 25512-9 Heart Rate 1 : 112 bpm Height: 5'2" SpO2: 96% Weight: 215 lbs 11/12/2015 Blood Pressure 1: 168/88 Code : 8480-6 Heart Rate 1: 106 bpm Height: 5'2" SpO2: 96% Weight: 11/10/2015 Blood Pressure 1: 156/80 Code : 8480-6 Heart Rate 1: 94 bpm Height: 5'2" SpO2: 96% Weight: 10/27/2015 Blood Pressure 1: 142/76 Code : 8480-6 BMI: 40.8 Code : 21984-9 Heart Rate 1 : 86 bpm Height: 5'2" SpO2: 97% Weight: 223 lbs 09/29/2015 Blood Pressure 1: 132/88 Code : 8480-6 BMI: 41.7 Code : 81864-8 Heart Rate 1 : 104 bpm Height: 5'2" SpO2: 94% Weight: 228 lbs 09/22/2015 Blood Pressure 1: 130/80 Code : 8480-6 BMI: 41.7 Code : 27340-8 Heart Rate 1 : 89 bpm Height: 5'2" SpO2: 97% Weight: 228 lbs 09/01/2015 Blood Pressure 1: 138/88 Code : 8480-6 BMI: 40.6 Code : 43637-2 Heart Rate 1 : 95 bpm Height: 5'2" SpO2: 95% Weight: 222 lbs 08/10/2015 Blood Pressure 1: 140/82 Code : 8480-6 BMI: 41.0 Code : 78089-3 Heart Rate 1 : 84 bpm Height: 5'2" SpO2: 97% Weight: 224 lbs 06/26/2015 Blood Pressure 1: 152/72 Code : 8480-6 BMI: 41.2 Code : 03149-6 Heart Rate 1 : 92 bpm Height: 5'2" SpO2: 96% Weight: 225 lbs 04/14/2015 Blood Pressure 1: 158/86 Code : 8480-6 BMI: 41.2 Code : 27948-2 Heart Rate 1 : 63 bpm Height: 5'2" SpO2: 93% Weight: 225 lbs 03/03/2015 Blood Pressure 1: 152/80 Code : 8480-6 BMI: 40.1 Code : 57835-7 Heart Rate 1 : 101 bpm Height: 5'2" SpO2: 97% Weight: 219 lbs 01/15/2015 Blood Pressure 1: 127/76 Code : 8480-6 BMI: 40.6 Code : 27513-1 Heart Rate 1 : 109 bpm Height: 5'2" SpO2: 97% Weight: 222 lbs 01/01/2015 Blood Pressure 1: 136/64 Code : 8480-6 BMI: 40.4 Code : 78526-3 Heart Rate 1 : 94 bpm Height: 5'2" SpO2: 96% Weight: 221 lbs 12/25/2014 Blood Pressure 1: 146/80 Code : 8480-6 Heart Rate 1: 95 bpm Height: 5'2" SpO2: 94% 11/04/2014 Blood Pressure 1: 110/70 Code : 8480-6 BMI: 40.2 Code : 60426-0 Heart Rate 1 : 878 bpm Height: 5'2" SpO2: 97% Weight: 220 lbs 09/08/2014 Blood Pressure 1: 142/78 Code : 8480-6 BMI: 39.5 Code : 92648-7 Heart Rate 1 : 97 bpm Height: 5'2" SpO2: 98% Weight: 216 lbs 08/29/2014 Blood Pressure 1: 140/90 Code : 8480-6 Blood Pressure 2: 120/70 Code: 8480-6 BMI: 40.2 Code: 73898-7 Heart Rate 1: 88 bpm Height: 5'2" Weight: 220 lbs 06/30/2014 Blood Pressure 1: 132/74 Code : 8480-6 BMI: 39.1 Code : 08970-1 Heart Rate 1 : 76 bpm Height: 5'2" Weight: 214 lbs 06/12/2014 Blood Pressure 1: 118/76 Code : 8480-6 BMI: 40.4 Code : 21652-1 Heart Rate 1 : 86 bpm Height: 5'2" SpO2: 96% Weight: 221 lbs 05/26/2014 Blood Pressure 1: 128/78 Code : 8480-6 BMI: 39.5 Code : 35312-9 Heart Rate 1 : 76 bpm Height: 5'2" Weight: 216 lbs 04/15/2014 Blood Pressure 1: 144/72 Code : 8480-6 BMI: 40.8 Code : 92601-8 Heart Rate 1 : 60 bpm Height: 5'2" Weight: 223 lbs 03/25/2014 Blood Pressure 1: 118/72 Code : 8480-6 BMI: 41.2 Code : 54734-2 Heart Rate 1 : 80 bpm Height: 5'2" Weight: 225 lbs 03/03/2014 Blood Pressure 1: 138/86 Code : 8480-6 BMI: 41.5 Code : 06553-6 Heart Rate 1 : 104 bpm Height: 5'2" Temperature: 36.1 (C) / 97.0 (F) Weight: 227 lbs 02/13/2014 Blood Pressure 1: 142/88 Code : 8480-6 BMI: 40.8 Code : 40201-7 Heart Rate 1 : 88 bpm Height: 5'2" Weight: 223 lbs 01/27/2014 Blood Pressure 1: 124/68 Code : 8480-6 BMI: 39.9 Code : 96865-9 Heart Rate 1 : 89 bpm Height: 5'2" SpO2: 94% Weight: 218 lbs 12/26/2013 Blood Pressure 1: 108/52 Code : 8480-6 BMI: 41.2 Code : 17258-5 Heart Rate 1 : 96 bpm Height: 5'2" Weight: 225 lbs 12/12/2013 Blood Pressure 1: 158/88 Code : 8480-6 BMI: 42.6 Code : 80175-2 Heart Rate 1 : 80 bpm Height: 5'2" Weight: 233 lbs 11/14/2013 Blood Pressure 1: 120/60 Code : 8480-6 BMI: 42.4 Code : 14204-1 Heart Rate 1 : 96 bpm Height: 5'2" Temperature: 5423.3 (C ) / 9794.0 (F) Weight: 232 lbs 10/21/2013 Blood Pressure 1: 100/60 Code : 8480-6 BMI: 41.9 Code : 88696-1 Heart Rate 1 : 96 bpm Height: 5'2" Weight: 229 lbs 10/03/2013 Blood Pressure 1: 122/72 Code : 8480-6 BMI: 42.3 Code : 35790-1 Heart Rate 1 : 84 bpm Height: 5'2" Weight: 231 lbs 09/27/2013 Blood Pressure 1: 112/58 Code : 8480-6 Heart Rate 1: 72 bpm SpO2: 93% Temperature: 36.2 (C) / 97.1 (F) Weight: 09/23/2013 Blood Pressure 1: 108/76 Code : 8480-6 BMI: 42.4 Code : 41290-1 Heart Rate 1 : 95 bpm Height: 5'2" SpO2: 96% Weight: 232 lbs 09/20/2013 Blood Pressure 1: 150/88 Code : 8480-6 BMI: 42.4 Code : 40550-5 Heart Rate 1 : 104 bpm Height: 5'2" Weight: 232 lbs 09/10/2013 Blood Pressure 1: 112/62 Code : 8480-6 Heart Rate 1: 88 bpm Weight: 238 lbs 08/19/2013 Blood Pressure 1: 102/58 Code : 8480-6 BMI: 43.7 Code : 61572-0 Heart Rate 1 : 80 bpm Height: 5'2" Weight: 239 lbs 08/12/2013 Blood Pressure 1: 110/60 Code : 8480-6 BMI: 43.3 Code : 00322-0 Heart Rate 1 : 90 bpm Height: 5'2" SpO2: 96% Weight: 236 lbs 8 oz 08/01/2013 Blood Pressure 1: 128/72 Code : 8480-6 BMI: 42.6 Code : 62745-9 Heart Rate 1 : 78 bpm Height: 5'2" SpO2: 97% Weight: 233 lbs 07/19/2013 Blood Pressure 1: 100/60 Code : 8480-6 BMI: 44.3 Code : 89734-4 Heart Rate 1 : 92 bpm Height: 5'2" Temperature: 36.2 (C) / 97.2 (F) Weight: 242 lbs 07/15/2013 Blood Pressure 1: 180/92 Code : 8480-6 Heart Rate 1: 115 bpm SpO2: 98% Weight: 06/27/2013 Blood Pressure 1: 114/64 Code : 8480-6 BMI: 44.1 Code : 24393-7 Heart Rate 1 : 114 bpm Height: 5'2" SpO2: 93% Weight: 241 lbs 06/10/2013 Blood Pressure 1: 174/86 Code : 8480-6 BMI: 44.1 Code : 19633-1 Heart Rate 1 : 132 bpm Height: 5'2" SpO2: 94% Temperature: 35.6 (C) / 96.0 (F) Weight: 241 lbs 05/07/2013 Blood Pressure 1: 160/88 Code : 8480-6 BMI: 43.5 Code : 65847-1 Heart Rate 1 : 108 bpm Height: 5'2" SpO2: 96% Weight: 238 lbs 04/16/2013 Blood Pressure 1: 116/62 Code : 8480-6 BMI: 44.6 Code : 07528-6 Heart Rate 1 : 90 bpm Height: 5'2" SpO2: 94% Weight: 244 lbs 03/21/2013 Blood Pressure 1: 102/64 Code : 8480-6 BMI: 42.8 Code : 75665-4 Height: 5'2" Weight: 234 lbs 02/12/2013 Blood Pressure 1: 130/78 Code : 8480-6 BMI: 42.0 Code : 22257-4 Heart Rate 1 : 100 bpm Height: 5'2" Weight: 229 lbs 8 oz 02/04/2013 Blood Pressure 1: 126/68 Code : 8480-6 BMI: 44.3 Code : 09395-4 Heart Rate 1 : 88 bpm Height: 5'2" Weight: 242 lbs 01/17/2013 Blood Pressure 1: 132/76 Code : 8480-6 Heart Rate 1: 121 bpm SpO2: 97% Weight: 242 lbs 12/31/2012 Blood Pressure 1: 144/90 Code : 8480-6 BMI: 43.0 Code : 22723-8 Heart Rate 1 : 96 bpm Height: 5'2" Temperature: 36.2 (C) / 97.2 (F) Weight: 235 lbs 12/20/2012 Blood Pressure 1: 156/96 Code : 8480-6 BMI: 42.4 Code : 73334-8 Heart Rate 1 : 96 bpm Height: 5'2" Temperature: 35.1 (C) / 95.1 (F) Weight: 232 lbs 10/29/2012 Blood Pressure 1: 146/90 Code : 8480-6 Heart Rate 1: 98 bpm SpO2: 98% Temperature: 36.1 (C) / 96.9 (F) Weight: 09/21/2012 Blood Pressure 1: 124/76 Code : 8480-6 Heart Rate 1: 88 bpm Weight: 09/06/2012 Blood Pressure 1: 152/78 Code : 8480-6 BMI: 38.8 Code : 16370-2 Heart Rate 1 : 96 bpm Height: 5'2" Temperature: 36.3 (C) / 97.3 (F) Weight: 212 lbs 08/23/2012 Blood Pressure 1: 116/72 Code : 8480-6 BMI: 38.3 Code : 89866-4 Heart Rate 1 : 92 bpm Height: 5'2" Weight: 209 lbs 8 oz 08/13/2012 Blood Pressure 1: 140/92 Code : 8480-6 BMI: 37.3 Code : 41453-9 Heart Rate 1 : 104 bpm Height: 5'2" Weight: 204 lbs 08/07/2012 Blood Pressure 1: 148/98 Code : 8480-6 BMI: 36.6 Code : 96762-8 Heart Rate 1 : 102 bpm Height: 5'2" Temperature: 36.6 (C) / 97.9 (F) Weight: 200 lbs 07/06/2012 Blood Pressure 1: 128/78 Code : 8480-6 Heart Rate 1: 92 bpm Respiratory Rate : 20 bpm Temperature: 36.6 (C) / 97.8 (F) Weight: 06/07/2012 Blood Pressure 1: 124/86 Code : 8480-6 Heart Rate 1: 103 bpm 05/28/2012 Blood Pressure 1: 158/104 Code: 8480-6 Heart Rate 1: 100 bpm Weight : 194 lbs 05/17/2012 Blood Pressure 1: 140/90 Code : 8480-6 Heart Rate 1: 89 bpm SpO2: 98% Weight: 197 lbs 05/02/2012 Blood Pressure 1: 124/78 Code : 8480-6 Heart Rate 1: 84 bpm Weight: 202 lbs 04/10/2012 Blood Pressure 1: 172/80 Code : 8480-6 Heart Rate 1: 94 bpm Weight: 196 lbs 8 oz 02/27/2012 Blood Pressure 1: 136/80 Code : 8480-6 Heart Rate 1: 76 bpm Weight: 199 lbs 02/15/2012 Blood Pressure 1: 126/78 Code : 8480-6 Heart Rate 1: 84 bpm Weight: 201 lbs 02/01/2012 Blood Pressure 1: 142/68 Code : 8480-6 Heart Rate 1: 96 bpm Weight: 204 lbs 12/14/2011 Blood Pressure 1: 148/82 Code : 8480-6 Heart Rate 1: 92 bpm Respiratory Rate : 16 bpm Weight: 191 lbs 11/30/2011 Blood Pressure 1: 156/92 Code : 8480-6 Heart Rate 1: 120 bpm Respiratory Rate: 16 bpm Temperature: 36.3 (C) / 97.4 (F) Weight: 191 lbs 5 oz 11/17/2011 Blood Pressure 1: 110/70 Code : 8480-6 Heart Rate 1: 88 bpm Respiratory Rate : 20 bpm SpO2: 96% Weight: 192 lbs 11/03/2011 Blood Pressure 1: 132/88 Code : 8480-6 Heart Rate 1: 126 bpm Respiratory Rate: 24 bpm SpO2: 97% Temperature: 36.9 (C) / 98.4 (F) Weight: 203 lbs 10/24/2011 Blood Pressure 1: 122/78 Code : 8480-6 BMI: 35.3 Code : 65480-9 Heart Rate 1 : 105 bpm Height: 5'2" SpO2: 98% Weight: 193 lbs 09/26/2011 Blood Pressure 1: 100/50 Code : 8480-6 Heart Rate 1: 92 bpm Respiratory Rate : 24 bpm Weight: 193 lbs 09/20/2011 Blood Pressure 1: 110/70 Code : 8480-6 Heart Rate 1: 90 bpm Respiratory Rate : 20 bpm Weight: 196 lbs 09/01/2011 Blood Pressure 1: 118/50 Code : 8480-6 Heart Rate 1: 94 bpm Respiratory Rate : 20 bpm Temperature: 36.7 (C) / 98.1 (F) Weight: 188 lbs 08/15/2011 Blood Pressure 1: 134/76 Code : 8480-6 Heart Rate 1: 100 bpm Weight: 189 lbs 08/09/2011 Blood Pressure 1: 108/66 Code : 8480-6 Heart Rate 1: 136 bpm SpO2: 98% Weight: 184 lbs 08/01/2011 Blood Pressure 1: 130/62 Code : 8480-6 Heart Rate 1: 82 bpm Respiratory Rate : 16 bpm Weight: 192 lbs 06/20/2011 Blood Pressure 1: 110/72 Code : 8480-6 Heart Rate 1: 76 bpm Respiratory Rate : 16 bpm Temperature: 36.6 (C) / 97.9 (F) Weight: 192 lbs 04/18/2011 Blood Pressure 1: 148/90 Code : 8480-6 Heart Rate 1: 92 bpm Temperature: 36.7 (C) / 98.0 (F) Weight: 191 lbs Functional Status No Functional Status data History of Present Illness Symptom Name Status Result Effective Date Notes Location on the left 05/21/2018 None Quality unsteady None Onset and Resolution ongoing 05/21/2018 None Assistive devices walker 05/21/2018 None Quality acute 2017 None Onset and Resolution sudden in onset 05/21/2018 None Onset of Symptom 10.5 hours ago 05/21/2018 None Mechanism of injury fall 05/21/2018 None Location in the throat 05/16/2018 None Quality intermittent 05/16/2018 None Quality dry 2017 None Onset of Symptom 2-3 weeks ago 05/16/2018 None Pertinent Findings dyspnea 05/16/2018 None Pertinent Findings Denies fever 05/16/2018 None Location in the right frontal area 05/16/2018 None Quality intermittent 05/16/2018 None Onset and Resolution Denies sudden in onset 05/16/2018 None Onset of Symptom 3 weeks ago 05/16/2018 None Pertinent Findings blurred vision 05/16/2018 None Pertinent Findings Denies dizziness 05/16/2018 None Quality insulin dependent 04/27/2018 None Quality chronic 04/27 None Alleviating Factors insulin 04/27/2018 None Exacerbating Factors diet 04/27/2018 None Pertinent Findings nausea 04/27/2018 "all the time" Severity severe 04/27 None Blood glucose levels greater than 120 04/27/2018 None Glucose monitoring occasional glucose testing 04/27/2018 None Significant Medical Conditions diabetic neuropathy 04/27/2018 None Significant Medications insulin 04/27/2018 None Nutrition regular diet 04/27/2018 None Exercise no exercise 04/27/2018 None Onset of Symptom onset as an adult 04/27/2018 None diabetes mellitus Quality insulin dependent 04/10/2018 None diabetes mellitus Quality chronic 04/10/2018 None diabetes mellitus Alleviating Factors insulin 04/10/2018 None diabetes mellitus Exacerbating Factors diet 04/10/2018 None diabetes mellitus Pertinent Findings nausea 04/10/2018 "all the time" diabetes mellitus Test results Pt checking blood glucose readings, did not bring results to clinic 04/10/2018 None diabetes mellitus Glucose monitoring twice daily 04/10/2018 --plans to start checking them more frequently hypertension Quality chronic 04/10/2018 None hypertension Quality primary hypertension 04/10/2018 None hypertension Onset and Resolution ongoing 04/10/2018 None hypertension Onset of Symptom during adulthood 04/10/2018 None hypertension Blood Pressure Values not checking blood pressure at home 04/10/2018 None hypertension Alleviating Factors medication 04/10/2018 None hypertension Pertinent Findings dizziness 04/10/2018 "some" hypertension Pertinent Findings dyspnea 04/10/2018 None hypertension Pertinent Findings edema 04/10/2018 -takes lasix twice daily anxiety Quality chronic 04/10/2018 None anxiety Alleviating Factors medication 04/10/2018 None anxiety Onset and Resolution ongoing 04/10/2018 None anxiety Frequency of Episodes increasing 04/10/2018 None anxiety Quality worsening 04/10/2018 None gait abnormality Quality intermittent 03/12/2018 None gait abnormality Onset and Resolution ongoing 03/12/2018 None gait abnormality Onset of Symptom 1 months ago 03/12/2018 None knee pain Location on the right 03/12/2018 None knee pain Quality constant 03/12/2018 None knee pain Quality chronic 03/12/2018 None knee pain Timing of Episodes at night 03/12/2018 worst knee pain Onset of Symptom _ years ago 03/12/2018 None knee pain Pertinent Findings decreased range of motion 03/12/2018 None knee pain Pertinent Findings pain with movement 03/12/2018 None knee pain Pertinent Findings sensation of buckling 03/12/2018 None gait abnormality Limitation on Activities necessitates ambulation with a cane or walker 03/12/2018 None gait abnormality Frequency of Episodes increasing 03/12/2018 None gait abnormality Triggers exertion 03/12/2018 None gait abnormality Assistive devices walker 03/12/2018 None gait abnormality Location both feet 03/12/2018 None gait abnormality Severity moderate 03/12/2018 None dysuria Quality acute 02/20/2018 None dysuria Quality burning 02/20/2018 None dysuria Onset and Resolution sudden in onset 02/20/2018 None dysuria Onset of Symptom 2-3 days ago 02/20/2018 None dysuria Pertinent Findings urinary urgency 02/20/2018 None diabetes mellitus Quality chronic 02/20/2018 None diabetes mellitus Quality insulin dependent 02/20/2018 None diabetes mellitus Alleviating Factors insulin 02/20/2018 None diabetes mellitus Exacerbating Factors diet 02/20/2018 None dysuria Pertinent Findings Denies fever 02/20/2018 None diabetes mellitus Test results Pt checking blood glucose readings, did not bring results to clinic 02/20/2018 None diabetes mellitus Glucose monitoring twice daily 02/20/2018 None diabetes mellitus Pertinent Findings nausea 02/20/2018 None leg pain/sciatica Location left leg sciatica 02/20/2018 None leg pain/sciatica Location right leg sciatica 02/20/2018 None leg pain/sciatica Limitation on Activities moderately limits activities 02/20/2018 None leg pain/sciatica Quality intermittent 02/20/2018 None leg pain/sciatica Quality sharp pain 02/20/2018 None leg pain/sciatica Onset of Symptom 4 days ago 02/20/2018 None leg pain/sciatica Onset and Resolution ongoing 02/20/2018 None diabetes mellitus Quality worsening 11/27/2017 None diabetes mellitus Significant Medications insulin 11/27/2017 None diabetes mellitus Pertinent Findings dizziness 11/27/2017 None diabetes mellitus Onset of Symptom onset as an adult 11/27/2017 None urinary incontinence Quality intermittent 11/27/2017 None urinary incontinence Onset and Resolution gradual in onset 11/27/2017 None urinary incontinence Frequency of Episodes weekly 11/27/2017 None urinary incontinence Pertinent Findings Denies bladder pain 11/27/2017 None urinary incontinence Pertinent Findings urinary urgency 11/27/2017 None diabetes mellitus Test results Pt checking blood glucose readings, did not bring results to clinic 11/27/2017 None diabetes mellitus Severity moderate 11/27/2017 None diabetes mellitus Blood glucose levels greater than 120 11/27/2017 300-400 diabetes mellitus Glucose monitoring twice daily 11/27/2017 and sometimes in the afternoon diabetes mellitus Nutrition regular diet 11/27/2017 None diabetes mellitus Exercise no exercise 11/27/2017 None diabetes mellitus Test results HgbA1c level 10.1 11/27/2017 None Annual Medicare Wellness Exam Alcohol Use does not drink any alcohol 10/27/2017 None Annual Medicare Wellness Exam Aspirin Use no 10/27/2017 None Annual Medicare Wellness Exam Blood Glucose (self reported) has a diagnosis of diabetes 10/27/2017 None Annual Medicare Wellness Exam Blood Pressure (self reported ) diagnosed with hypertension 10/27/2017 None Annual Medicare Wellness Exam Cholesterol (self reported) high (240 or higher) 10/27/2017 None Annual Medicare Wellness Exam Hemaglobin A-1C (self reported ) high (8 or higher) 10/27/2017 None Annual Medicare Wellness Exam Depression (last 6 months) most of the time 10/27/2017 None Annual Medicare Wellness Exam Depression or Hopelessness most of the time 10/27/2017 None Annual Medicare Wellness Exam Describe Your Health fair 10/27/2017 None Annual Medicare Wellness Exam Exercise Habits exercises 2 days per week 10/27/2017 None Annual Medicare Wellness Exam Exercise Habits exercises 60 minutes per day 10/27/2017 None Annual Medicare Wellness Exam Handling Stress often has problems coping 10/27/2017 None Annual Medicare Wellness Exam Hours of Sleep 4-5 10/27/2017 None Annual Medicare Wellness Exam Interaction with Friends yes 10/27/2017 None Annual Medicare Wellness Exam Interests & Pleasure some of the time 10/27/2017 None Annual Medicare Wellness Exam Life Satisfaction satisfied 10/27/2017 None Annual Medicare Wellness Exam Motor Vehicle Safety always fastens seat belt: yes 10/27/2017 None Annual Medicare Wellness Exam Motor Vehicle Safety drives after drinking: no 10/27/2017 None Annual Medicare Wellness Exam Motor Vehicle Safety rides with someone who has been drinking: no 10/27 None Annual Medicare Wellness Exam Nutrition servings of fried food / high fat foods per day: 1 2017 None Annual Medicare Wellness Exam Nutrition servings of high fiber / whole grain per day: 2 10/27/2017 None Annual Medicare Wellness Exam Nutrition servings of vegetables / fruit per day: 1 10/27/2017 None Annual Medicare Wellness Exam Smoking and Tobacco Use non smoker 10/27/2017 None Annual Medicare Wellness Exam Social & Emotional Support usually 10/27/2017 None Annual Medicare Wellness Exam Stress daily 10/27/2017 None Annual Medicare Wellness Exam Sun Exposure protects skin when outdoors: yes 10/27/2017 None diabetes mellitus Quality worsening 09/27/2017 None diabetes mellitus Significant Medications insulin 09/27/2017 None diabetes mellitus Pertinent Findings dizziness 09/27/2017 None diabetes mellitus Onset of Symptom onset as an adult 09/27/2017 None oral pain Location diffusely 09/15/2017 None oral pain Quality aching 09/15/2017 None oral pain Quality constant 09/15/2017 None oral pain Quality throbbing 09/15/2017 None oral pain Onset and Resolution sudden in onset 09/15/2017 None oral pain Onset of Symptom _ weeks ago 09/15/2017 None oral pain Frequency of Episodes daily 09/15/2017 None pain Location-Major on the upper body 09/15/2017 None oral pain Location diffusely 08/18/2017 None oral pain Quality aching 08/18/2017 None oral pain Quality constant 08/18/2017 None oral pain Quality throbbing 08/18/2017 None oral pain Onset and Resolution sudden in onset 08/18/2017 None oral pain Onset of Symptom _ weeks ago 08/18/2017 None oral pain Frequency of Episodes daily 08/18/2017 None hypertension Quality primary hypertension 08/03/2017 None hypertension Onset and Resolution ongoing 08/03/2017 None hypertension Onset of Symptom during adulthood 08/03/2017 None hypertension Blood Pressure Values patient checking blood pressure at home - did not bring in readings 08/03/2017 -Checks occasionally hypertension Alleviating Factors medication 08/03/2017 None hypertension Pertinent Findings dizziness 08/03/2017 None hypertension Pertinent Findings dyspnea 08/03/2017 None hypertension Pertinent Findings edema 08/03/2017 None diabetes mellitus Quality insulin dependent 08/03/2017 None diabetes mellitus Alleviating Factors medication 08/03/2017 None diabetes mellitus Exacerbating Factors diet 08/03/2017 None diabetes mellitus Pertinent Findings nausea 08/03/2017 -takes promethazine most days eyelid edema Location on the left eyelid 08/03/2017 None eyelid edema Quality acute 08/03/2017 None eyelid edema Onset and Resolution sudden in onset 08/03/2017 None eyelid edema Onset of Symptom 4-5 days ago 08/03/2017 None eyelid edema Triggers no known associated factors 08/03/2017 None hypertension Severity not consistently severe symptoms, the symptoms fluctuate from no symptoms to anxiety and headaches 08/03/2017 None hypertension Frequency of Episodes unchanged 08/03/2017 None hypertension Quality primary hypertension 07/27/2017 None hypertension Onset and Resolution ongoing 07/27/2017 None hypertension Onset of Symptom during adulthood 07/27/2017 None hypertension Alleviating Factors medication 07/27/2017 None hypertension Pertinent Findings dizziness 07/27/2017 None hypertension Pertinent Findings dyspnea 07/27/2017 None hypertension Pertinent Findings edema 07/27/2017 None diabetes mellitus Quality insulin dependent 07/27/2017 None diabetes mellitus Alleviating Factors medication 07/27/2017 None diabetes mellitus Exacerbating Factors diet 07/27/2017 None diabetes mellitus Pertinent Findings nausea 07/27/2017 -takes promethazine most days hypertension Blood Pressure Values patient checking blood pressure at home - did not bring in readings 07/27/2017 -Checks occasionally eyelid edema Location on the left eyelid 07/27/2017 None eyelid edema Quality acute 07/27/2017 None eyelid edema Onset and Resolution sudden in onset 07/27/2017 None eyelid edema Onset of Symptom 4-5 days ago 07/27/2017 None eyelid edema Triggers no known associated factors 07/27/2017 None hypertension Quality primary hypertension 06/13/2017 None hypertension Onset and Resolution ongoing 06/13/2017 None hypertension Onset of Symptom during adulthood 06/13/2017 None hypertension Blood Pressure Values not checking blood pressure at home 06/13/2017 None hypertension Alleviating Factors medication 06/13/2017 None hypertension Pertinent Findings confusion 06/13/2017 None hypertension Pertinent Findings dizziness 06/13/2017 None hypertension Pertinent Findings dyspnea 06/13/2017 None hypertension Pertinent Findings edema 06/13/2017 None diabetes mellitus Quality insulin dependent 06/13/2017 None diabetes mellitus Alleviating Factors medication 06/13/2017 None diabetes mellitus Exacerbating Factors diet 06/13/2017 None diabetes mellitus Pertinent Findings nausea 06/13/2017 None abdominal pain Location in the LLQ 06/13/2017 None abdominal pain Location in the RLQ 06/13/2017 None abdominal pain Radiating the inguinal area 06/13/2017 None abdominal pain Quality acute 06/13/2017 None abdominal pain Quality cramping 06/13/2017 None abdominal pain Quality intermittent 06/13/2017 None abdominal pain Onset and Resolution ongoing 06/13/2017 None abdominal pain Onset of Symptom 3 months ago 06/13/2017 None abdominal pain Triggers no known associated factors 06/13/2017 None oral lesion Location diffusely 04/21/2017 None oral lesion Quality tender 04/21/2017 None oral lesion Onset and Resolution sudden in onset 04/21/2017 None oral lesion Onset of Symptom 5 days ago 04/21/2017 None oral lesion Frequency of Episodes daily 04/21/2017 None oral lesion Pertinent Findings pain with oral intake 04/21/2017 None oral pain Location diffusely 04/21/2017 None oral pain Quality aching 04/21/2017 None oral pain Quality constant 04/21/2017 None oral pain Onset and Resolution sudden in onset 04/21/2017 None oral pain Onset of Symptom 5 days ago 04/21/2017 None oral pain Frequency of Episodes daily 04/21/2017 None hypertension Quality primary hypertension 04/18/2017 None hypertension Onset and Resolution ongoing 04/18/2017 None hypertension Onset of Symptom during adulthood 04/18/2017 None abdominal pain Location in the LLQ 04/18/2017 None abdominal pain Location in the RLQ 04/18/2017 None abdominal pain Radiating the inguinal area 04/18/2017 None abdominal pain Quality cramping 04/18/2017 None abdominal pain Quality acute 04/18/2017 None abdominal pain Onset and Resolution ongoing 04/18/2017 None abdominal pain Onset of Symptom 3 months ago 04/18/2017 None abdominal pain Quality intermittent 04/18/2017 None abdominal pain Triggers no known associated factors 04/18/2017 None hypertension Blood Pressure Values not checking blood pressure at home 04/18/2017 None hypertension Alleviating Factors medication 04/18/2017 None hypertension Pertinent Findings dizziness 04/18/2017 None hypertension Pertinent Findings confusion 04/18/2017 None hypertension Pertinent Findings dyspnea 04/18/2017 None hypertension Pertinent Findings edema 04/18/2017 None diabetes mellitus Test results Pt checking blood glucose at home, see scanned readings 2016 None diabetes mellitus Quality insulin dependent 04/18/2017 None diabetes mellitus Glucose monitoring twice daily 04/18/2017 (2-3 times daily) diabetes mellitus Exacerbating Factors diet 04/18/2017 None diabetes mellitus Alleviating Factors medication 04/18/2017 None diabetes mellitus Pertinent Findings nausea 04/18/2017 None urinary urgency Quality acute 03/27/2017 None urinary urgency Onset and Resolution sudden in onset 03/27/2017 None urinary urgency Onset and Resolution ongoing 03/27/2017 None urinary urgency Pertinent Findings oliguria 03/27/2017 None urinary urgency Onset of Symptom _ days ago 03/27/2017 None urinary urgency Limitation on Activities moderately limits activities 03/27/2017 None urinary urgency Frequency of Episodes increasing 03/27/2017 None urinary urgency Significant Medical Conditions diabetes mellitus 03/27/2017 None urinary urgency Triggers no known associated factors 03/27/2017 None urinary urgency Pertinent Findings Denies fever 03/27/2017 None urinary urgency Pertinent Findings bladder pain 03/27/2017 None urinary urgency Pertinent Findings back pain 03/27/2017 None abdominal pain Location in the RLQ 02/27/2017 None abdominal pain Quality acute 02/27/2017 None abdominal pain Onset and Resolution ongoing 02/27/2017 None abdominal pain Onset of Symptom 4 days ago 02/27/2017 None abdominal pain Limitation on Activities moderately limits activities 02/27/2017 None abdominal pain Frequency of Episodes increasing 02/27/2017 None abdominal pain Triggers no known associated factors 02/27/2017 None abdominal pain Alleviating Factors medication 02/27/2017 None abdominal pain Pertinent Findings bloating 02/27/2017 None abdominal pain Pertinent Findings heartburn 02/27/2017 None urinary urgency Quality acute 02/27/2017 None urinary urgency Onset and Resolution sudden in onset 02/27/2017 None urinary urgency Onset and Resolution ongoing 02/27/2017 None urinary urgency Pertinent Findings oliguria 02/27/2017 None abdominal pain Location in the RLQ 02/21/2017 None abdominal pain Quality acute 02/21/2017 None abdominal pain Onset and Resolution ongoing 02/21/2017 None abdominal pain Onset of Symptom 4 days ago 02/21/2017 None abdominal pain Limitation on Activities moderately limits activities 02/21/2017 None abdominal pain Frequency of Episodes increasing 02/21/2017 None abdominal pain Triggers no known associated factors 02/21/2017 None urinary urgency Quality acute 02/21/2017 None urinary urgency Onset and Resolution ongoing 02/21/2017 None urinary urgency Onset and Resolution sudden in onset 02/21/2017 None urinary urgency Pertinent Findings oliguria 02/21/2017 None abdominal pain Pertinent Findings bloating 02/21/2017 None abdominal pain Pertinent Findings heartburn 02/21/2017 None abdominal pain Alleviating Factors medication 02/21/2017 None abdominal pain Quality acute 02/17/2017 None abdominal pain Onset and Resolution ongoing 02/17/2017 None abdominal pain Onset of Symptom 4 days ago 02/17/2017 None abdominal pain Limitation on Activities moderately limits activities 02/17/2017 None abdominal pain Frequency of Episodes increasing 02/17/2017 None abdominal pain Triggers no known associated factors 02/17/2017 None abdominal pain Location in the RLQ 02/17/2017 None Hospital Follow Up _ infection 02/13/2017 None Hospital Follow Up _ pneumonia 02/13/2017 None Hospital Follow Up _ pulmonary disease 02/13/2017 None Hospital Follow Up Quality acute illness 02/13/2017 None Hospital Follow Up Location PNEUMONIA 02/13/2017 None Hospital Follow Up Onset of Symptom _ days ago 02/13/2017 None Hospital Follow Up Onset and Resolution ongoing 02/13/2017 None Hospital Follow Up Significant Medical Conditions acute illness 02/13/2017 None Hospital Follow Up Pertinent Findings Denies fever 02/13/2017 None shoulder pain Location deep 01/30/2017 None shoulder pain Quality sharp 01/30/2017 None shoulder pain Onset and Resolution sudden in onset 01/30/2017 None shoulder pain Exacerbating Factors activity 01/30/2017 None shoulder pain Pertinent Findings point tenderness 01/30/2017 None shoulder pain Onset of Symptom 5 days ago 01/30/2017 after falling shoulder pain Limitation on Activities moderately limits activities 01/30/2017 None shoulder pain Frequency of Episodes increasing 01/30/2017 None shoulder pain Significant Medical Conditions diabetes 01/30/2017 None shoulder pain Significant Medications NSAID's( ) 01/30/2017 None shoulder pain Mechanism of injury low energy 01/30/2017 None shoulder pain Mechanism of injury fall onto the shoulder 01/30/2017 None sinus congestion Onset and Resolution ongoing 01/16/2017 None sinus congestion Onset of Symptom 2 months ago 01/16/2017 None depression Quality constant 01/16/2017 None depression Frequency of Episodes daily 01/16/2017 None depression Pertinent Findings anxiety 01/16/2017 None foot pain Location on the right 01/16/2017 None foot pain Location achilles tendon 01/16/2017 None foot pain Quality dull pain 01/16/2017 None foot pain Quality tingling 01/16/2017 None foot pain Quality tenderness 01/16/2017 None foot pain Quality intermittent 01/16/2017 None foot pain Onset of Symptom 1 months ago 01/16/2017 None foot pain Frequency of Episodes daily 01/16/2017 None foot pain Pertinent Findings instability 01/16/2017 None foot pain Pertinent Findings limping 01/16/2017 None foot pain Pertinent Findings pain with movement 01/16/2017 None depression Onset of Symptom _ years ago 01/16/2017 None depression Limitation on Activities moderately limits activities 01/16/2017 None depression Triggers no known associated factors 01/16/2017 None depression Exacerbating Factors activity 01/16/2017 None sinus congestion Severity moderate 01/16/2017 None sinus congestion Frequency of Episodes unchanged 01/16/2017 None sinus congestion Triggers allergens 01/16/2017 None headache Location in the frontal area 12/13/2016 None headache Quality aching 12/13/2016 None headache Quality constant 12/13/2016 None headache Quality pressure 12/13/2016 None headache Onset and Resolution sudden in onset 12/13/2016 None headache Pertinent Findings blurred vision 12/13/2016 None headache Pertinent Findings dizziness 12/13/2016 None sinus congestion Location maxillary sinuses 12/13/2016 None sinus congestion Location frontal sinuses 12/13/2016 None sinus congestion Quality acute 12/13/2016 None sinus congestion Onset and Resolution gradual in onset 12/13/2016 None sinus congestion Severity moderate 12/13/2016 None sinus congestion Pertinent Findings Denies fever 12/13/2016 None sinus congestion Pertinent Findings cough 12/13/2016 None sinus congestion Pertinent Findings facial pain 12/13/2016 None vision change Location in the left eye 12/13/2016 None vision change Quality diplopia 12/13/2016 None vision change Onset and Resolution gradual in onset 12/13/2016 None vision change Onset of Symptom 5 days ago 12/13/2016 None vision change Limitation on Activities does not limit activities 12/13/2016 None vision change Severity mild 12/13/2016 None vision change Pertinent Findings Denies dyspnea 12/13/2016 None vision change Pertinent Findings Denies eye discharge 12/13/2016 None vision change Pertinent Findings Denies eye tearing 12/13/2016 None vision change Pertinent Findings lightheadedness 12/13/2016 None vision change Pertinent Findings URI symptoms 12/13/2016 None vision change Pertinent Findings cough 12/13/2016 None weight loss Quality chronic 11/11/2016 None weight loss Onset and Resolution ongoing 11/11/2016 None dyskinesia or tremor Location on the left arm 11/11/2016 None dyskinesia or tremor Location on the left leg 11/11/2016 None dyskinesia or tremor Location on the right arm 11/11/2016 None dyskinesia or tremor Location on the right leg 11/11/2016 None dyskinesia or tremor Quality intermittent 11/11/2016 None dyskinesia or tremor Onset and Resolution ongoing 11/11/2016 None dyskinesia or tremor Onset of Symptom during adulthood 11/11/2016 None dyskinesia or tremor Limitation on Activities does not limit activities 11/11/2016 None dyskinesia or tremor Frequency of Episodes unchanged 11/11/2016 None dyskinesia or tremor Length of Episodes _ minutes 11/11/2016 None dyskinesia or tremor Triggers no known associated factors 11/11/2016 None sinus congestion Onset and Resolution sudden in onset 10/28/2016 None sinus congestion Onset of Symptom 3 days ago 10/28/2016 None sinus congestion Severity mild 10/28/2016 None sinus congestion Pertinent Findings Denies cough 10/28/2016 None sinus congestion Pertinent Findings decreased energy level 10/28/2016 None sinus congestion Pertinent Findings facial pain 10/28/2016 None sinus congestion Pertinent Findings fever 10/28/2016 None sinus congestion Pertinent Findings hoarseness 10/28/2016 None arm pain Location right upper arm 10/28/2016 shingles arm pain Quality sharp pain 10/28/2016 None arm pain Pertinent Findings female 10/28/2016 None arm pain Pertinent Findings 60 years 10/28/2016 None sinus congestion Frequency of Episodes increasing 10/28/2016 None sinus congestion Significant Medical Conditions allergic rhinitis 10/28/2016 None sinus congestion Triggers allergens 10/28/2016 None sinus congestion Location on both sides 10/28/2016 None sinus congestion Quality chronic 10/28/2016 None arm pain Onset and Resolution ongoing 10/28/2016 None shoulder pain Location deep 10/13/2016 None shoulder pain Quality sharp 10/13/2016 None shoulder pain Onset and Resolution sudden in onset 10/13/2016 None shoulder pain Exacerbating Factors activity 10/13/2016 None shoulder pain Pertinent Findings point tenderness 10/13/2016 None low back pain Quality throbbing 10/13/2016 None low back pain Quality intermittent 10/13/2016 None low back pain Quality stabbing 10/13/2016 None low back pain Onset and Resolution ongoing 10/13/2016 None low back pain Pertinent Findings female 10/13/2016 None low back pain Pertinent Findings 60 years 10/13/2016 None low back pain Pertinent Findings pain with movement 10/13/2016 None low back pain Pertinent Findings poor fitness level 10/13/2016 None knee pain Location on the right 10/13/2016 None knee pain Quality acute 10/13/2016 None knee pain Quality constant 10/13/2016 None knee pain Pertinent Findings instability 10/13/2016 None knee pain Pertinent Findings limping 10/13/2016 None knee pain Pertinent Findings pain with movement 10/13/2016 None knee pain Pertinent Findings sensation of buckling 10/13/2016 None knee pain Pertinent Findings stiffness 10/13/2016 None knee pain Pertinent Findings swelling 10/13/2016 None sinus congestion Onset and Resolution sudden in onset 09/23/2016 None sinus congestion Onset of Symptom 3 days ago 09/23/2016 None sinus congestion Severity mild 09/23/2016 None sinus congestion Pertinent Findings Denies cough 09/23/2016 None sinus congestion Pertinent Findings decreased energy level 09/23/2016 None sinus congestion Pertinent Findings facial pain 09/23/2016 None sinus congestion Pertinent Findings fever 09/23/2016 None sinus congestion Pertinent Findings hoarseness 09/23/2016 None knee pain Location on the right 09/23/2016 None knee pain Quality acute 09/23/2016 None knee pain Quality constant 09/23/2016 None knee pain Pertinent Findings limping 09/23/2016 None knee pain Pertinent Findings instability 09/23/2016 None knee pain Pertinent Findings pain with movement 09/23/2016 None knee pain Pertinent Findings sensation of buckling 09/23/2016 None knee pain Pertinent Findings stiffness 09/23/2016 None knee pain Pertinent Findings swelling 09/23/2016 None knee pain Mechanism of injury fall onto knee 09/23/2016 None ankle pain Location on the right 09/23/2016 None ankle pain Quality sharp pain 09/23/2016 None ankle pain Quality acute 09/23/2016 None ankle pain Onset and Resolution sudden in onset 09/23/2016 None ankle pain Onset of Symptom 2 days ago 09/23/2016 None ankle pain Pertinent Findings decreased range of motion 09/23/2016 None ankle pain Pertinent Findings pain with movement 09/23/2016 None ankle pain Pertinent Findings stiffness 09/23/2016 None ankle pain Pertinent Findings swelling 09/23/2016 None ankle pain Pertinent Findings limping 09/23/2016 None ankle pain Mechanism of injury rotational 09/23/2016 None arm pain Location right upper arm 09/23/2016 None arm pain Quality sharp pain 09/23/2016 None arm pain Mechanism of injury fall from height 09/23/2016 None arm pain Pertinent Findings female 09/23/2016 None arm pain Pertinent Findings 60 years 09/23/2016 None shoulder pain Location deep 09/13/2016 None shoulder pain Quality sharp 09/13/2016 None shoulder pain Onset and Resolution sudden in onset 09/13/2016 None shoulder pain Exacerbating Factors activity 09/13/2016 None shoulder pain Pertinent Findings point tenderness 09/13/2016 None rash Location-Major on the chest 09/13/2016 None rash Location-Trunk on the right breast 09/13/2016 None rash Location-Trunk on the left breast 09/13/2016 None low back pain Quality throbbing 09/13/2016 None low back pain Quality intermittent 09/13/2016 None low back pain Quality stabbing 09/13/2016 None low back pain Onset and Resolution ongoing 09/13/2016 None low back pain Pertinent Findings female 09/13/2016 None low back pain Pertinent Findings 60 years 09/13/2016 None low back pain Pertinent Findings pain with movement 09/13/2016 None low back pain Pertinent Findings poor fitness level 09/13/2016 None shoulder pain Location deep 08/09/2016 None shoulder pain Quality sharp 08/09/2016 None shoulder pain Onset and Resolution sudden in onset 08/09/2016 None shoulder pain Exacerbating Factors activity 08/09/2016 None shoulder pain Pertinent Findings point tenderness 08/09/2016 None rash Location-Major in a generalized area 08/09/2016 under breasts-improving with medication Hospital Follow Up _ pneumonia 07/26/2016 None Hospital Follow Up Quality acute illness 07/26/2016 pneumonia Hospital Follow Up Onset of Symptom _ weeks ago 07/26/2016 None Hospital Follow Up Severity mild 07/26/2016 None Hospital Follow Up Significant Medical Conditions acute illness 07/26/2016 None Hospital Follow Up Pertinent Findings Denies pain 07/26/2016 None Hospital Follow Up Pertinent Findings Denies fever 07/26/2016 None diabetes mellitus Quality chronic 05/24/2016 None diabetes mellitus Severity moderate 05/24/2016 None diabetes mellitus Significant Medications insulin 05/24/2016 None diabetes mellitus Alleviating Factors medication 05/24/2016 None diabetes mellitus Exacerbating Factors diet 05/24/2016 None diabetes mellitus Nutrition regular diet 05/24/2016 pt does not follow an ADA diet diabetes mellitus Pertinent Findings dizziness 05/24/2016 None diabetes mellitus Pertinent Findings dyspnea 05/24/2016 None diabetes mellitus Pertinent Findings Denies nausea 05/24/2016 None diabetes mellitus Onset of Symptom onset as an adult 05/24/2016 None diabetes mellitus Test results HgbA1c level 9.6% 05/24/2016 None diabetes mellitus Glucose monitoring occasional glucose testing 05/24/2016 None diabetes mellitus Quality chronic 04/19/2016 None diabetes mellitus Severity moderate 04/19/2016 None diabetes mellitus Significant Medications insulin 04/19/2016 None diabetes mellitus Alleviating Factors medication 04/19/2016 None diabetes mellitus Exacerbating Factors diet 04/19/2016 None diabetes mellitus Nutrition regular diet 04/19/2016 pt does not follow an ADA diet diabetes mellitus Pertinent Findings dizziness 04/19/2016 None diabetes mellitus Pertinent Findings dyspnea 04/19/2016 None diabetes mellitus Pertinent Findings Denies nausea 04/19/2016 None diabetes mellitus Onset of Symptom onset as an adult 04/19/2016 None vaginal discharge Quality intermittent 04/19/2016 None vaginal discharge Onset and Resolution ongoing 04/19/2016 None vaginal discharge Quality foul-smelling 04/19/2016 None vaginal discharge Frequency of Episodes daily 04/19/2016 None vaginal discharge Pertinent Findings Denies bladder pain 04/19/2016 None vaginal discharge Pertinent Findings Denies vaginal pruritus 04/19/2016 None diabetes mellitus Quality chronic 04/11/2016 None diabetes mellitus Severity moderate 04/11/2016 None diabetes mellitus Exacerbating Factors diet 04/11/2016 None diabetes mellitus Nutrition regular diet 04/11/2016 pt does not follow an ADA diet diabetes mellitus Pertinent Findings dizziness 04/11/2016 None diabetes mellitus Pertinent Findings dyspnea 04/11/2016 None diabetes mellitus Pertinent Findings Denies nausea 04/11/2016 None diabetes mellitus Onset of Symptom onset as an adult 04/11/2016 None diabetes mellitus Test results Pt checking blood glucose readings, did not bring results to clinic 04/11/2016 None spasms/spasticity Location on both hands 04/11/2016 None spasms/spasticity Location on both feet 04/11/2016 None spasms/spasticity Quality intermittent 04/11/2016 None spasms/spasticity Onset and Resolution ongoing 04/11/2016 None spasms/spasticity Onset of Symptom 3 weeks ago 04/11/2016 None spasms/spasticity Frequency of Episodes daily 04/11/2016 None spasms/spasticity Pertinent Findings Denies back pain 04/11/2016 None spasms/spasticity Pertinent Findings Denies neck pain 04/11/2016 None diabetes mellitus Blood glucose levels greater than 120 04/11/2016 None diabetes mellitus Glucose monitoring daily 04/11/2016 None diabetes mellitus Significant Medications insulin 04/11/2016 None diabetes mellitus Alleviating Factors medication 04/11/2016 None medication follow up Additional Comments medication use 03/21/2016 None medication follow up Location oral intake 03/21/2016 None diabetes mellitus Quality chronic 03/11/2016 None diabetes mellitus Exacerbating Factors diet 03/11/2016 None diabetes mellitus Nutrition regular diet 03/11/2016 pt does not follow an ADA diet diabetes mellitus Pertinent Findings dizziness 03/11/2016 None diabetes mellitus Pertinent Findings dyspnea 03/11/2016 None diabetes mellitus Pertinent Findings Denies nausea 03/11/2016 None diabetes mellitus Onset of Symptom onset as an adult 03/11/2016 None edema Onset and Resolution ongoing 03/11/2016 None edema Onset of Symptom _ years ago 03/11/2016 None edema Limitation on Activities does not limit activities 03/11/2016 None edema Significant Past Medical History cardiac disease 03/11/2016 None edema Significant Past Medical History renal disease 03/11/2016 None edema Significant Medications diuretics 03/11/2016 None edema Triggers no known associated factors 03/11/2016 None diabetes mellitus Severity moderate 03/11/2016 None diabetes mellitus Test results fasting glucose >140 03/11/2016 None diabetes mellitus Blood glucose levels greater than 120 03/11/2016 None diabetes mellitus Onset of Symptom onset as an adult 02/26/2016 None diabetes mellitus Quality chronic 02/26/2016 None diabetes mellitus Exacerbating Factors diet 02/26/2016 None diabetes mellitus Nutrition regular diet 02/26/2016 pt does not follow an ADA diet diabetes mellitus Pertinent Findings dizziness 02/26/2016 None diabetes mellitus Pertinent Findings dyspnea 02/26/2016 None diabetes mellitus Pertinent Findings Denies nausea 02/26/2016 None edema Onset and Resolution ongoing 02/26/2016 None edema Onset of Symptom _ years ago 02/26/2016 None edema Limitation on Activities does not limit activities 02/26/2016 None edema Significant Past Medical History cardiac disease 02/26/2016 None edema Significant Past Medical History renal disease 02/26/2016 None edema Significant Medications diuretics 02/26/2016 None edema Triggers no known associated factors 02/26/2016 None Hospital Follow Up _ pneumonia 02/02/2016 None Hospital Follow Up Quality improving 02/02/2016 None Hospital Follow Up Onset of Symptom 2 weeks ago 02/02/2016 None Hospital Follow Up Pertinent Findings Denies pain 02/02/2016 None Hospital Follow Up Pertinent Findings Denies fever 02/02/2016 None Hospital Follow Up Severity moderate 02/02/2016 afib headache Location diffusely 12/17/2015 None headache Quality intermittent 12/17/2015 None headache Quality aching 12/17/2015 None headache Onset and Resolution ongoing 12/17/2015 None headache Onset of Symptom 3 weeks ago 12/17/2015 None headache Frequency of Episodes daily 12/17/2015 None headache Pertinent Findings anxiety 12/17/2015 None headache Pertinent Findings awakens from sleep 12/17/2015 None headache Pertinent Findings blurred vision 12/17/2015 None headache Pertinent Findings dizziness 12/17/2015 None headache Pertinent Findings Denies nausea 12/17/2015 None headache Triggers no known associated factors 12/17/2015 None nausea Onset of Symptom 3 days ago 12/08/2015 None nausea Frequency of Episodes daily 12/08/2015 None nausea Pertinent Findings Denies cough 12/08/2015 None nausea Pertinent Findings Denies fever 12/08/2015 None syncope Quality acute 12/08/2015 None syncope Onset of Symptom 3 days ago 12/08/2015 None syncope Frequency of Episodes daily 12/08/2015 None syncope Pertinent Findings back pain 12/08/2015 None syncope Pertinent Findings dizziness 12/08/2015 None syncope Pertinent Findings tachycardia 12/08/2015 None Hospital Follow Up Quality improving 11/27/2015 None Hospital Follow Up Onset of Symptom 1 weeks ago 11/27/2015 None Hospital Follow Up Pertinent Findings Denies pain 11/27/2015 None Hospital Follow Up _ cardiac disease 11/27/2015 None Hospital Follow Up Significant Medical Conditions acute illness 11/27/2015 None Hospital Follow Up _ pain 11/12/2015 None Hospital Follow Up Quality acute 11/12/2015 None Hospital Follow Up Onset and Resolution worsening 11/12/2015 None Hospital Follow Up Severity moderate 11/12/2015 None Hospital Follow Up Severity severe 11/12/2015 None Hospital Follow Up Significant Medical Conditions acute illness 11/12/2015 None Hospital Follow Up Pertinent Findings Denies fever 11/12/2015 None Hospital Follow Up Pertinent Findings other neurologic symptoms 11/12/2015 None Hospital Follow Up Pertinent Findings medication use 11/12/2015 None cough Location in the throat 11/10/2015 None cough Quality constant 11/10/2015 None cough Quality hacking 11/10/2015 None cough Quality productive 11/10/2015 None cough Onset and Resolution sudden in onset 11/10/2015 None cough Onset of Symptom 3 days ago 11/10/2015 None cough Frequency of Episodes daily 11/10/2015 None cough Pertinent Findings chest discomfort 11/10/2015 None cough Pertinent Findings hoarseness 11/10/2015 None sinus congestion Onset and Resolution sudden in onset 11/10/2015 None sinus congestion Severity moderate 11/10/2015 None knee pain Location on the left 10/27/2015 None knee pain Quality tenderness 10/27/2015 None knee pain Quality dull pain 10/27/2015 None knee pain Quality constant 10/27/2015 None knee pain Onset and Resolution sudden in onset 10/27/2015 None knee pain Onset of Symptom 1 weeks ago 10/27/2015 None knee pain Frequency of Episodes daily 10/27/2015 None knee pain Mechanism of injury fall onto knee 10/27/2015 None knee pain Pertinent Findings limping 10/27/2015 None knee pain Pertinent Findings pain with movement 10/27/2015 None knee pain Pertinent Findings stiffness 10/27/2015 None knee pain Pertinent Findings swelling 10/27/2015 None Annual Medicare Wellness Exam Blood Glucose (self reported) has a diagnosis of diabetes 09/29/2015 None Annual Medicare Wellness Exam Blood Glucose (self reported) high (126 or higher) 09/29/2015 None Annual Medicare Wellness Exam Aspirin Use yes 09/29/2015 None Annual Medicare Wellness Exam Alcohol Use does not drink any alcohol 09/29/2015 None Annual Medicare Wellness Exam Blood Pressure (self reported ) diagnosed with hypertension 09/29/2015 None Annual Medicare Wellness Exam Depression (last 6 months) some of the time 09/29/2015 None Annual Medicare Wellness Exam Describe Your Health good 09/29/2015 None Annual Medicare Wellness Exam Exercise Habits does not exercise 09/29/2015 None Annual Medicare Wellness Exam Handling Stress usually deanne effectively 09/29/2015 None Annual Medicare Wellness Exam Handling Stress often has problems coping 09/29/2015 None Annual Medicare Wellness Exam Hemaglobin A-1C (self reported ) desireable (6 or lower) 09/29/2015 6.7 Annual Medicare Wellness Exam Hours of Sleep 4-5 09/29/2015 None Annual Medicare Wellness Exam Interaction with Friends yes 09/29/2015 None Annual Medicare Wellness Exam Interests & Pleasure almost all of the time 09/29/2015 None Annual Medicare Wellness Exam Life Satisfaction satisfied 09/29/2015 None Annual Medicare Wellness Exam Motor Vehicle Safety always fastens seat belt: _ 09/29/2015 None Annual Medicare Wellness Exam Nutrition servings of vegetables / fruit per day: 2 09/29/2015 None Annual Medicare Wellness Exam Nutrition servings of fried food / high fat foods per day: 1 2015 None Annual Medicare Wellness Exam Nutrition servings of high fiber / whole grain per day: 3 09/29/2015 None Annual Medicare Wellness Exam Smoking and Tobacco Use non smoker 09/29/2015 None Annual Medicare Wellness Exam Social & Emotional Support always 09/29/2015 None Annual Medicare Wellness Exam Stress most of the time 09/29/2015 None Annual Medicare Wellness Exam Sun Exposure protects skin when outdoors: y 09/29/2015 None Annual Medicare Wellness Exam Cholesterol (self reported) don't know 09/29/2015 None diabetes mellitus Quality insulin dependent 09/22/2015 None diabetes mellitus Test results Pt checking blood glucose readings, did not bring results to clinic 09/22/2015 None diabetes mellitus Pertinent Findings dizziness 09/22/2015 None diabetes mellitus Pertinent Findings Denies dyspnea 09/22/2015 None diabetes mellitus Pertinent Findings nausea 09/22/2015 None diabetes mellitus Pertinent Findings Denies weight loss 09/22/2015 None diabetes mellitus Severity moderate 09/22/2015 None diabetes mellitus Test results OGTT 140- 200 09/22/2015 None diabetes mellitus Test results fasting glucose 115-140 09/22/2015 None diabetes mellitus Alleviating Factors medication 09/22/2015 None diabetes mellitus Exacerbating Factors diet 09/22/2015 None diabetes mellitus Nutrition regular diet 09/22/2015 None diabetes mellitus Exercise no exercise 09/22/2015 None diaphoresis Quality intermittent 09/01/2015 None diaphoresis Onset and Resolution ongoing 09/01/2015 None diaphoresis Frequency of Episodes daily 09/01/2015 None diaphoresis Pertinent Findings Denies dyspnea 09/01/2015 None diaphoresis Pertinent Findings Denies fever 09/01/2015 None diaphoresis Pertinent Findings Denies vomiting 09/01/2015 None wound follow up General Recovery poorly 09/01/2015 None sinus congestion Location on both sides 08/10/2015 None sinus congestion Quality fullness 08/10/2015 None sinus congestion Onset and Resolution sudden in onset 08/10/2015 None sinus congestion Onset of Symptom 3 weeks ago 08/10/2015 None sinus congestion Frequency of Episodes daily 08/10/2015 None sinus congestion Pertinent Findings cough 08/10/2015 None knee pain Location on the left 08/10/2015 None knee pain Quality dull pain 08/10/2015 None knee pain Onset and Resolution sudden in onset 08/10/2015 None knee pain Frequency of Episodes daily 08/10/2015 None knee pain Pertinent Findings limping 08/10/2015 None knee pain Pertinent Findings pain with movement 08/10/2015 None knee pain Pertinent Findings stiffness 08/10/2015 None knee pain Pertinent Findings swelling 08/10/2015 None back pain Quality dull 08/10/2015 None back pain Quality constant 08/10/2015 None back pain Quality aching 08/10/2015 None back pain Onset and Resolution sudden in onset 08/10/2015 None back pain Onset of Symptom 4 days ago 08/10/2015 None back pain Frequency of Episodes daily 08/10/2015 None back pain Radiating down the right leg 08/10/2015 None diabetes mellitus Severity moderate 08/10/2015 None diabetes mellitus Test results Pt checking blood glucose readings, did not bring results to clinic 08/10/2015 None diabetes mellitus Quality insulin dependent 08/10/2015 None diabetes mellitus Blood glucose levels greater than 120 08/10/2015 only checking once per week diabetes mellitus Glucose monitoring occasional glucose testing 08/10/2015 None diabetes mellitus Alleviating Factors medication 08/10/2015 None diabetes mellitus Exacerbating Factors diet 08/10/2015 None diabetes mellitus Nutrition regular diet 08/10/2015 None diabetes mellitus Exercise no exercise 08/10/2015 None diabetes mellitus Onset of Symptom onset as an adult 08/10/2015 None cough Location in the throat 06/26/2015 None cough Quality hacking 06/26/2015 None cough Onset and Resolution sudden in onset 06/26/2015 None cough Onset of Symptom 3 weeks ago 06/26/2015 None cough Frequency of Episodes daily 06/26/2015 None cough Pertinent Findings chest discomfort 06/26/2015 None cough Pertinent Findings nasal congestion 06/26/2015 None sinus congestion Location on both sides 06/26/2015 None sinus congestion Quality fullness 06/26/2015 None sinus congestion Onset and Resolution sudden in onset 06/26/2015 None sinus congestion Onset of Symptom 3 weeks ago 06/26/2015 None sinus congestion Frequency of Episodes daily 06/26/2015 None sinus congestion Pertinent Findings cough 06/26/2015 None earache Location both ears 06/26/2015 None earache Onset and Resolution sudden in onset 06/26/2015 None earache Onset of Symptom 3 weeks ago 06/26/2015 None earache Frequency of Episodes daily 06/26/2015 None earache Triggers no known triggers 06/26/2015 None knee pain Location on the left 06/26/2015 None knee pain Quality dull pain 06/26/2015 None knee pain Onset and Resolution sudden in onset 06/26/2015 None knee pain Frequency of Episodes daily 06/26/2015 None knee pain Pertinent Findings limping 06/26/2015 None knee pain Pertinent Findings pain with movement 06/26/2015 None knee pain Pertinent Findings stiffness 06/26/2015 None knee pain Pertinent Findings swelling 06/26/2015 None knee pain Mechanism of injury twisting with a popping sensation 06/26/2015 None nausea Frequency of Episodes daily 04/14/2015 None rash Location-Major on the legs 04/14/2015 None nausea Onset and Resolution ongoing 04/14/2015 None rash Color red 2014 None rash Onset and Resolution sudden in onset 04/14/2015 None rash Onset of Symptom 6 days ago 04/14/2015 None edema Onset of Symptom 6 days ago 04/14/2015 None edema Limitation on Activities moderately limits activities 04/14/2015 None edema Frequency of Episodes daily 04/14/2015 None edema Pertinent Findings limb pain / tenderness 04/14/2015 None edema Pertinent Findings limb redness 04/14/2015 None edema Location on the right leg 04/14/2015 None edema Location on the left leg 04/14/2015 None edema Onset and Resolution ongoing 04/14/2015 None edema Significant Medications diuretics 04/14/2015 None edema Triggers diet change 04/14/2015 None edema Alleviating Factors medication 04/14/2015 None edema Quality chronic 04/14/2015 None rash Quality acute None rash Limitation on Activities does not limit activities 04/14/2015 None rash Severity worsening 04/14/2015 None rash Prior Treatments previously untreated 04/14/2015 None nausea Onset of Symptom 1 weeks ago 03/03/2015 None nausea Frequency of Episodes daily 03/03/2015 None urinary urgency Quality constant 03/03/2015 None urinary urgency Onset and Resolution sudden in onset 03/03/2015 None urinary urgency Onset of Symptom 1 weeks ago 03/03/2015 None urinary urgency Pertinent Findings bladder pain 03/03/2015 None urinary urgency Pertinent Findings nausea 03/03/2015 None urinary urgency Triggers no known associated factors 03/03/2015 None urinary urgency Frequency of Episodes daily 03/03/2015 None pedal edema Location in both lower extremities 01/15/2015 None pedal edema Quality pitting 01/15/2015 None pedal edema Onset and Resolution gradual in onset 01/15/2015 None pedal edema Severity moderate, resulting in moderately uncomfortable 01/15/2015 None pedal edema Onset of Symptom 4 days ago 01/15/2015 None pedal edema Triggers no known associated factors 01/15/2015 None blisters Location-Major on the legs 01/15/2015 None blisters Color red None blisters Onset and Resolution sudden in onset 01/15/2015 None blisters Onset of Symptom 1 week ago 01/15/2015 None blisters Triggers no known triggers 01/15/2015 None depression Onset and Resolution ongoing 01/15/2015 None depression Quality intermittent 01/15/2015 None depression Triggers no known associated factors 01/15/2015 None depression Pertinent Findings depressed mood 01/15/2015 None 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 None Hospital Follow Up Quality constant 01/01/2015 None Hospital Follow Up Onset of Symptom 10 days ago 01/01/2015 None Hospital Follow Up Onset and Resolution sudden in onset 01/01/2015 None Hospital Follow Up Exacerbating Factors exertion 01/01/2015 None Hospital Follow Up Exacerbating Factors activity 01/01/2015 None Hospital Follow Up Alleviating Factors rest 01/01/2015 None Hospital Follow Up Pertinent Findings pain 01/01/2015 None dysuria Onset of Symptom 3 days ago 11/04/2014 None dysuria Quality aching 11/04/2014 None dysuria Pertinent Findings back pain 11/04/2014 None dysuria Pertinent Findings bladder pain 11/04/2014 None dysuria Limitation on Activities does not limit urination 11/04/2014 None dysuria Frequency of Episodes increasing 11/04/2014 None dysuria Significant Medical Conditions diabetes mellitus 11/04/2014 None dysuria Significant Medical Conditions recurrent urinary tract infections 11/04/2014 None dysuria Triggers no known associated factors 11/04/2014 None diabetes mellitus Onset of Symptom onset as an adult 09/08/2014 None diabetes mellitus Quality insulin dependent 09/08/2014 None diabetes mellitus Severity moderate 09/08/2014 None diabetes mellitus Significant Medications insulin 09/08/2014 None diabetes mellitus Alleviating Factors insulin 09/08/2014 None diabetes mellitus Exacerbating Factors diet 09/08/2014 None diabetes mellitus Nutrition regular diet 09/08/2014 None diabetes mellitus Pertinent Findings dizziness 09/08/2014 None diabetes mellitus Pertinent Findings Denies lethargy 09/08/2014 None diabetes mellitus Pertinent Findings Denies vomiting 09/08/2014 None diabetes mellitus Pertinent Findings Denies weight loss 09/08/2014 None edema Onset and Resolution ongoing 09/08/2014 pt reports better- using YAAKOV hose edema Onset of Symptom _ years ago 09/08/2014 None edema Limitation on Activities does not limit activities 09/08/2014 None edema Frequency of Episodes increasing 09/08/2014 None edema Significant Medications diuretics 09/08/2014 None edema Triggers diet change 09/08/2014 eating out more and still drinking some pop edema Alleviating Factors medication 09/08/2014 None edema Exacerbating Factors salty foods 09/08/2014 None edema Location on both legs 09/08/2014 None edema Pertinent Findings back pain 09/08/2014 None edema Pertinent Findings dyspnea on exertion 09/08/2014 None edema Pertinent Findings limb redness 09/08/2014 None edema Pertinent Findings Denies tachycardia 09/08/2014 None edema Pertinent Findings Denies tachypnea 09/08/2014 None sinus congestion Quality intermittent 09/08/2014 on Levaquin sinus congestion Pertinent Findings cough 09/08/2014 reports a lot of drainage and she is spitting up a lot of stuff in the mornings- yellowish in color diabetes mellitus Test results Pt checking blood glucose at home, see scanned readings 2014 None sinus congestion Onset and Resolution ongoing 09/08/2014 None sinus congestion Severity moderate 09/08/2014 None sinus congestion Frequency of Episodes unchanged 09/08/2014 None diabetes mellitus Onset of Symptom onset as an adult 08/29/2014 None diabetes mellitus Quality insulin dependent 08/29/2014 None diabetes mellitus Severity moderate 08/29/2014 None diabetes mellitus Significant Medications insulin 08/29/2014 None diabetes mellitus Alleviating Factors insulin 08/29/2014 None diabetes mellitus Exacerbating Factors diet 08/29/2014 None diabetes mellitus Nutrition regular diet 08/29/2014 quit drinking pop diabetes mellitus Pertinent Findings dizziness 08/29/2014 None diabetes mellitus Pertinent Findings Denies lethargy 08/29/2014 None diabetes mellitus Pertinent Findings Denies vomiting 08/29/2014 None diabetes mellitus Pertinent Findings Denies weight loss 08/29/2014 None skin lesion Quality red 08/29/2014 None skin lesion Quality worsening 08/29/2014 None skin lesion Onset and Resolution ongoing 08/29/2014 None skin lesion Onset of Symptom 2 weeks ago 08/29/2014 Pt using bactroban to area skin lesion Severity mild 08/29/2014 None skin lesion Frequency of Episodes increasing 08/29/2014 None skin lesion Significant Medical Conditions infection 08/29/2014 None skin lesion Triggers activity 08/29/2014 None skin lesion Location right lower leg 08/29/2014 None skin lesion Pertinent Findings Denies cough 08/29/2014 None skin lesion Pertinent Findings Denies fever 08/29/2014 None skin lesion Pertinent Findings Denies vomiting 08/29/2014 None edema Onset and Resolution ongoing 08/29/2014 None edema Onset of Symptom _ years ago 08/29/2014 None edema Limitation on Activities does not limit activities 08/29/2014 None edema Frequency of Episodes increasing 08/29/2014 None edema Significant Medications diuretics 08/29/2014 None edema Triggers diet change 08/29/2014 eating out more and drinking more pop edema Alleviating Factors medication 08/29/2014 None edema Exacerbating Factors salty foods 08/29/2014 eating out most meals edema Location on both legs 08/29/2014 None edema Pertinent Findings back pain 08/29/2014 None edema Pertinent Findings dyspnea on exertion 08/29/2014 None edema Pertinent Findings limb redness 08/29/2014 None edema Pertinent Findings Denies tachycardia 08/29/2014 None edema Pertinent Findings Denies tachypnea 08/29/2014 None diabetes mellitus Glucose monitoring daily 08/29/2014 155 today diabetes mellitus Quality insulin dependent 06/30/2014 None diabetes mellitus Severity moderate 06/30/2014 None diabetes mellitus Significant Medications insulin 06/30/2014 None diabetes mellitus Alleviating Factors insulin 06/30/2014 None diabetes mellitus Exacerbating Factors diet 06/30/2014 None diabetes mellitus Nutrition regular diet 06/30/2014 quit drinking pop diabetes mellitus Pertinent Findings dizziness 06/30/2014 None diabetes mellitus Pertinent Findings Denies lethargy 06/30/2014 None diabetes mellitus Pertinent Findings Denies vomiting 06/30/2014 None diabetes mellitus Pertinent Findings Denies weight loss 06/30/2014 None diabetes mellitus Onset of Symptom onset as an adult 06/30/2014 None skin lesion Quality red 06/30/2014 None skin lesion Quality worsening 06/30/2014 None skin lesion Location right lower leg 06/30/2014 None skin lesion Onset and Resolution ongoing 06/30/2014 None skin lesion Onset of Symptom 2 weeks ago 06/30/2014 Pt using bactroban to area skin lesion Severity mild 06/30/2014 None skin lesion Frequency of Episodes increasing 06/30/2014 None skin lesion Significant Medical Conditions infection 06/30/2014 None skin lesion Triggers activity 06/30/2014 None skin lesion Pertinent Findings Denies cough 06/30/2014 None skin lesion Pertinent Findings Denies fever 06/30/2014 None skin lesion Pertinent Findings Denies vomiting 06/30/2014 None edema Onset and Resolution ongoing 06/30/2014 None edema Onset of Symptom _ years ago 06/30/2014 None edema Limitation on Activities does not limit activities 06/30/2014 None edema Frequency of Episodes increasing 06/30/2014 None edema Significant Medications diuretics 06/30/2014 None edema Triggers diet change 06/30/2014 eating out more and drinking more pop edema Alleviating Factors medication 06/30/2014 None edema Exacerbating Factors salty foods 06/30/2014 eating out most meals edema Pertinent Findings back pain 06/30/2014 None edema Pertinent Findings dyspnea on exertion 06/30/2014 None edema Pertinent Findings limb redness 06/30/2014 None edema Pertinent Findings Denies tachycardia 06/30/2014 None edema Pertinent Findings Denies tachypnea 06/30/2014 None edema Location on both legs 06/30/2014 None sinus congestion Onset of Symptom 6 weeks ago 06/30/2014 None sinus congestion Pertinent Findings cough 06/30/2014 None sinus congestion Pertinent Findings facial pain 06/30/2014 None sinus congestion Pertinent Findings Denies fever 06/30/2014 None sinus congestion Onset and Resolution ongoing 06/30/2014 None sinus congestion Quality chronic 06/30/2014 None sinus congestion Severity moderate 06/30/2014 None sinus congestion Frequency of Episodes unchanged 06/30/2014 None diabetes mellitus Test results Pt checking blood glucose at home, see scanned readings 2014 None diabetes mellitus Blood glucose levels greater than 120 06/30/2014 None diabetes mellitus Glucose monitoring twice daily 06/30/2014 None skin lesion Quality red 06/12/2014 None skin lesion Quality worsening 06/12/2014 None skin lesion Onset and Resolution ongoing 06/12/2014 None skin lesion Onset of Symptom 2 weeks ago 06/12/2014 Pt using bactroban to area skin lesion Pertinent Findings Denies fever 06/12/2014 None diabetes mellitus Severity moderate 06/12/2014 None diabetes mellitus Quality insulin dependent 06/12/2014 None diabetes mellitus Test results HgbA1c level 9.4 06/12/2014 None diabetes mellitus Test results Pt checking blood glucose readings, did not bring results to clinic 06/12/2014 None diabetes mellitus Blood glucose levels greater than 120 06/12/2014 None diabetes mellitus Glucose monitoring occasional glucose testing 06/12/2014 None diabetes mellitus Significant Medications insulin 06/12/2014 None diabetes mellitus Alleviating Factors insulin 06/12/2014 None diabetes mellitus Exacerbating Factors diet 06/12/2014 None diabetes mellitus Nutrition regular diet 06/12/2014 drinking more pop since her mom has been in the hospital diabetes mellitus Exercise no exercise 06/12/2014 None diabetes mellitus Pertinent Findings dizziness 06/12/2014 None diabetes mellitus Pertinent Findings Denies lethargy 06/12/2014 None diabetes mellitus Pertinent Findings Denies vomiting 06/12/2014 None diabetes mellitus Pertinent Findings Denies weight loss 06/12/2014 None diabetes mellitus Onset of Symptom onset as an adult 06/12/2014 None skin lesion Location right lower leg 06/12/2014 None skin lesion Severity mild 06/12/2014 None skin lesion Frequency of Episodes increasing 06/12/2014 None skin lesion Significant Medical Conditions infection 06/12/2014 None skin lesion Triggers activity 06/12/2014 None skin lesion Pertinent Findings Denies cough 06/12/2014 None skin lesion Pertinent Findings Denies vomiting 06/12/2014 None edema Onset and Resolution ongoing 06/12/2014 None edema Onset of Symptom _ years ago 06/12/2014 None edema Limitation on Activities does not limit activities 06/12/2014 None edema Frequency of Episodes increasing 06/12/2014 None edema Significant Medications diuretics 06/12/2014 None edema Triggers diet change 06/12/2014 eating out more and drinking more pop edema Alleviating Factors medication 06/12/2014 None edema Exacerbating Factors salty foods 06/12/2014 eating out most meals edema Pertinent Findings back pain 06/12/2014 None edema Pertinent Findings dyspnea on exertion 06/12/2014 None edema Pertinent Findings limb redness 06/12/2014 None edema Pertinent Findings Denies tachycardia 06/12/2014 None edema Pertinent Findings Denies tachypnea 06/12/2014 None edema Location on both legs 06/12/2014 None knee pain Location on the right 05/26/2014 None knee pain Quality constant 05/26/2014 None knee pain Length of Episodes 2 weeks 05/26/2014 None knee pain Pertinent Findings limping 05/26/2014 occ uses cane but is not using it today knee pain Pertinent Findings Denies inability to extend 05/26/2014 None back pain Location lumbar-sacral spine 05/26/2014 None back pain Quality constant 05/26/2014 None back pain Pertinent Findings weakness 05/26/2014 None skin lesion Quality red 05/26/2014 None skin lesion Quality worsening 05/26/2014 None skin lesion Onset and Resolution ongoing 05/26/2014 None skin lesion Onset of Symptom 2 weeks ago 05/26/2014 area reopened. Pt using bactroban to area skin lesion Pertinent Findings Denies fever 05/26/2014 None edema Quality chronic 04/15/2014 None edema Onset and Resolution ongoing 04/15/2014 None edema Limitation on Activities does not limit activities 04/15/2014 None edema Frequency of Episodes increasing 04/15/2014 None edema Significant Past Medical History cardiac disease 04/15/2014 None edema Significant Past Medical History renal disease 04/15/2014 None edema Significant Medications diuretics 04/15/2014 None edema Alleviating Factors medication 04/15/2014 None edema Exacerbating Factors activity 04/15/2014 None edema Location on both legs 04/15/2014 None edema Pertinent Findings limb redness 04/15/2014 None edema Pertinent Findings Denies nausea 04/15/2014 None diabetes mellitus Quality chronic 04/15/2014 None diabetes mellitus Pertinent Findings dyspnea 04/15/2014 None diabetes mellitus Pertinent Findings weight loss 04/15/2014 pt reports she is trying to lose weight diabetes mellitus Test results Pt checking blood glucose at home, see scanned readings 2013 None diabetes mellitus Glucose monitoring twice daily 04/15/2014 None sinus pain Onset of Symptom 3 days ago 04/15/2014 None sinus pain Severity moderate 04/15/2014 threw up monday due to sinus drainage. The right side of her face and teeth hurts. sinus pain Pertinent Findings facial pain 04/15/2014 None sinus pain Pertinent Findings cough 04/15/2014 yellow phlegm sinus pain Pertinent Findings Denies fever 04/15/2014 None edema Quality chronic 03/25/2014 None edema Onset and Resolution ongoing 03/25/2014 None edema Limitation on Activities does not limit activities 03/25/2014 None edema Frequency of Episodes increasing 03/25/2014 None edema Significant Past Medical History cardiac disease 03/25/2014 None edema Significant Past Medical History renal disease 03/25/2014 None edema Significant Medications diuretics 03/25/2014 None edema Alleviating Factors medication 03/25/2014 None edema Exacerbating Factors activity 03/25/2014 None edema Location on both legs 03/25/2014 None edema Pertinent Findings limb redness 03/25/2014 None edema Pertinent Findings Denies nausea 03/25/2014 None diabetes mellitus Pertinent Findings dizziness 03/25/2014 fallen r/t high blood sugars diabetes mellitus Pertinent Findings dyspnea 03/25/2014 None diabetes mellitus Pertinent Findings weight loss 03/25/2014 pt reports she is trying to lose weight diabetes mellitus Quality chronic 03/25/2014 None facial pain Onset of Symptom 1 weeks ago 03/25/2014 None facial pain Pertinent Findings cough 03/25/2014 None facial pain Pertinent Findings Denies fever 03/25/2014 None facial pain Pertinent Findings facial pain 03/25/2014 None edema Quality chronic 03/03/2014 None edema Onset and Resolution ongoing 03/03/2014 None edema Limitation on Activities does not limit activities 03/03/2014 None edema Frequency of Episodes increasing 03/03/2014 None edema Significant Past Medical History cardiac disease 03/03/2014 None edema Significant Past Medical History renal disease 03/03/2014 None edema Significant Medications diuretics 03/03/2014 None edema Alleviating Factors medication 03/03/2014 None edema Location on both legs 03/03/2014 None edema Exacerbating Factors activity 03/03/2014 didn't take metoprolol x 3 days, restarted yesterday edema Pertinent Findings limb redness 03/03/2014 None edema Pertinent Findings Denies nausea 03/03/2014 None edema Onset and Resolution ongoing 02/13/2014 None vision change Location in both eyes 02/13/2014 None vision change Quality blurred vision 02/13/2014 None vision change Quality intermittent 02/13/2014 None vision change Pertinent Findings dizziness 02/13/2014 sometimes vision change Pertinent Findings dyspnea 02/13/2014 None diabetes mellitus Quality chronic 02/13/2014 None diabetes mellitus Pertinent Findings dizziness 02/13/2014 fallen r/t high blood sugars diabetes mellitus Pertinent Findings dyspnea 02/13/2014 None diabetes mellitus Pertinent Findings Denies weight loss 02/13/2014 None diabetes mellitus Pertinent Findings nausea 02/13/2014 None diabetes mellitus Severity mild 02/13/2014 None diabetes mellitus Blood glucose levels greater than 120 02/13/2014 None diabetes mellitus Test results fasting glucose >140 02/13/2014 None diabetes mellitus Significant Medications insulin 02/13/2014 None diabetes mellitus Alleviating Factors medication 02/13/2014 None diabetes mellitus Exacerbating Factors diet 02/13/2014 None diabetes mellitus Nutrition regular diet 02/13/2014 None diabetes mellitus Exercise no exercise 02/13/2014 None diabetes mellitus Onset of Symptom onset as an adult 02/13/2014 None diabetes mellitus Glucose monitoring twice daily 02/13/2014 did not bring log vision change Onset and Resolution ongoing 02/13/2014 None edema Quality chronic 02/13/2014 None edema Limitation on Activities does not limit activities 02/13/2014 None edema Frequency of Episodes increasing 02/13/2014 None edema Significant Past Medical History cardiac disease 02/13/2014 None edema Significant Past Medical History renal disease 02/13/2014 None edema Significant Medications diuretics 02/13/2014 None edema Triggers diet change 02/13/2014 been drinking pop every day edema Alleviating Factors medication 02/13/2014 None edema Location on both legs 02/13/2014 None diabetes mellitus Quality chronic 01/27/2014 None diabetes mellitus Test results Pt checking blood glucose readings, did not bring results to clinic 01/27/2014 - pt was started on a prednisone taper at the beginning of december - she was seen by her it service continuity supervisor again in mid 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 She states that she saw her it service continuity supervisor and was to be started on another prednisone taper, but did not get started on this medication because of her blood glucose level being so high - Monae reports that her FSBS have been in the 300's this weekend - and she wants to restart her prednisone taper if she can because of how hard of a time she is having with her breathing - diabetes mellitus Blood glucose levels greater than 120 01/27/2014 last sugar 303 at 8am diabetes mellitus Pertinent Findings dizziness 01/27/2014 fallen r/t high blood sugars diabetes mellitus Pertinent Findings dyspnea 01/27/2014 None diabetes mellitus Pertinent Findings weight loss 01/27/2014 pt reports she is trying to lose weight vision change Location in both eyes 01/27/2014 only noticed when her sugar is elevated vision change Quality intermittent 01/27/2014 None vision change Quality blurred vision 01/27/2014 None vision change Pertinent Findings dizziness 01/27/2014 sometimes vision change Pertinent Findings dyspnea 01/27/2014 None skin lesion Quality red 12/26/2013 None skin lesion Onset and Resolution ongoing 12/26/2013 None skin lesion Location right lower leg 12/26/2013 None skin lesion Pertinent Findings Denies fever 12/26/2013 None skin lesion Pertinent Findings Denies cough 12/26/2013 None skin lesion Quality scabbed 12/26/2013 None skin lesion Onset of Symptom 3 weeks ago 12/26/2013 None skin lesion Severity mild 12/26/2013 None skin lesion Frequency of Episodes decreasing 12/26/2013 None skin lesion Significant Medical Conditions infection 12/26/2013 None skin lesion Significant Medical Conditions trauma 12/26/2013 hit leg on hospital bed while was in the hospital skin lesion Triggers activity 12/26/2013 None skin lesion Alleviating Factors medication 12/26/2013 None skin lesion Quality scabbed 12/12/2013 None skin lesion Quality oozing 12/12/2013 None skin lesion Quality raised 12/12/2013 None skin lesion Location right lower leg 12/12/2013 None skin lesion Onset and Resolution ongoing 12/12/2013 None skin lesion Pertinent Findings Denies fever 12/12/2013 None skin lesion Onset of Symptom _ months ago 12/12/2013 None skin lesion Onset of Symptom _ days ago 12/12/2013 states he hit her right leg on the hospital bed when she was there with her Jose skin lesion Frequency of Episodes unchanged 12/12/2013 None skin lesion Significant Medical Conditions infection 12/12/2013 None skin lesion Significant Medical Conditions trauma 12/12/2013 None skin lesion Triggers activity 12/12/2013 None skin lesion Exacerbating Factors activity 12/12/2013 None cough Location in the lung 11/14/2013 None cough Onset of Symptom 3 days ago 11/14/2013 None cough Pertinent Findings dyspnea 11/14/2013 None cough Pertinent Findings fever 11/14/2013 None cough Pertinent Findings lethargy 11/14/2013 None cough Pertinent Findings nasal congestion 11/14/2013 None cough Pertinent Findings sputum production 11/14/2013 wheezing cough Quality acute None cough Onset and Resolution ongoing 11/14/2013 None cough Limitation on Activities does not limit activities 11/14/2013 None cough Frequency of Episodes increasing 11/14/2013 None cough Significant Medical Conditions pulmonary disease 11/14/2013 None cough Significant Medical Conditions cardiac disease 11/14/2013 None skin lesion Location right lower leg 10/21/2013 None edema Onset and Resolution ongoing 10/21/2013 None edema Location on both legs 10/21/2013 worse on the right edema Quality pitting 10/21/2013 None skin lesion Quality improving 10/21/2013 None skin lesion Onset and Resolution resolved 10/21/2013 None skin lesion Frequency of Episodes decreasing 10/21/2013 None skin lesion Triggers no known associated factors 10/21/2013 None skin lesion Alleviating Factors medication 10/21/2013 None skin lesion Pertinent Findings Denies fever 10/21/2013 None edema Limitation on Activities does not limit activities 10/21/2013 None edema Frequency of Episodes increasing 10/21/2013 None edema Significant Past Medical History cardiac disease 10/21/2013 None edema Significant Past Medical History renal disease 10/21/2013 None edema Significant Medications diuretics 10/21/2013 None edema Alleviating Factors medication 10/21/2013 None edema Exacerbating Factors salty foods 10/21/2013 None knee pain Location on the right 10/03/2013 None knee pain Quality locking 10/03/[address] cooper give her hydrocodone 7.5 and wants us to prescribe that instead of 5 knee pain Frequency of Episodes increasing 10/03/2013 None knee pain Onset and Resolution gradual in onset 10/03/2013 None knee pain Onset of Symptom 2 years ago 10/03/2013 None knee pain Limitation on Activities allows weight bearing activity 10/03/2013 None knee pain Significant Medical Conditions degenerative joint disease 10/03/2013 None knee pain Severity moderate 10/03/2013 None knee pain Alleviating Factors NSAID's 10/03/2013 hydrocodone knee pain Pertinent Findings limping 10/03/2013 None knee pain Pertinent Findings Denies instability 10/03/2013 None knee pain Pertinent Findings pain with movement 10/03/2013 None knee pain Pertinent Findings Denies redness 10/03/2013 None knee pain Pertinent Findings Denies warmth 10/03/2013 None knee pain Pertinent Findings Denies weakness 10/03/2013 None cellulitis Quality acute 10/03/2013 None cellulitis Onset and Resolution ongoing 10/03/2013 None cellulitis Limitation on Activities does not limit activities 10/03/2013 None cellulitis Frequency of Episodes decreasing 10/03/2013 None cellulitis Triggers no known associated factors 10/03/2013 None cellulitis Significant Medical Conditions previous cellulitis 10/03/2013 right anterior leg cellulitis Alleviating Factors prescription medication 10/03/2013 None cellulitis Mechanism of injury puncture wound 10/03/2013 None cellulitis Pertinent Findings Denies fever 10/03/2013 None cellulitis Pertinent Findings Denies drainage 10/03/2013 None cellulitis Pertinent Findings redness 10/03/2013 None cellulitis Pertinent Findings Denies pain 10/03/2013 None cellulitis Pertinent Findings Denies tenderness 10/03/2013 None cellulitis Pertinent Findings Denies warmth 10/03/2013 None cellulitis Pertinent Findings Denies itching 10/03/2013 None skin lesion Location right lower leg 09/27/2013 None skin lesion Onset and Resolution ongoing 09/27/2013 None skin lesion Pertinent Findings Denies fever 09/27/2013 None cellulitis Location on the right leg 09/27/2013 None cellulitis Onset and Resolution ongoing 09/27/2013 None cellulitis Location on the right leg 09/23/2013 None cellulitis Onset and Resolution ongoing 09/23/2013 None wrist pain Location on the left 09/23/2013 states she fell and has pain since then. states wrist brace didn't fit wrist pain Quality numbness 09/23/2013 in thumb wrist pain Quality sharp pain 09/23/2013 None skin lesion Quality scabbed 09/20/2013 None skin lesion Quality oozing 09/20/2013 at times skin lesion Quality red 09/20/2013 None skin lesion Location right lower leg 09/20/2013 None skin lesion Pertinent Findings Denies fever 09/20/2013 None skin lesion Onset and Resolution ongoing 09/20/2013 None skin lesion Onset of Symptom 2-3 weeks ago 09/20/2013 None skin lesion Severity mild 09/20/2013 None skin lesion Frequency of Episodes decreasing 09/20/2013 None skin lesion Significant Medical Conditions infection 09/20/2013 None skin lesion Triggers activity 09/20/2013 None skin lesion Alleviating Factors medication 09/20/2013 None skin lesion Pertinent Findings Denies vomiting 09/20/2013 None skin lesion Pertinent Findings Denies cough 09/20/2013 None skin lesion Quality oozing 09/10/2013 None skin lesion Quality red 09/10/2013 None skin lesion Location right lower leg 09/10/2013 None skin lesion Pertinent Findings fever 09/10/2013 None arm pain Quality electricity 09/10/2013 None arm pain Quality throbbing 09/10/2013 LEFT SHOULDER PAIN-DR COOPER ORDERED MRI LEFT SHOULDER skin lesion Onset and Resolution ongoing 09/10/2013 None skin lesion Onset of Symptom 1 weeks ago 09/10/2013 None skin lesion Severity mild 09/10/2013 None skin lesion Significant Medical Conditions trauma 09/10/2013 fell last Monday skin lesion Triggers activity 09/10/2013 None skin lesion Alleviating Factors medication 09/10/2013 went to [facility] on Monday and start on Cipro diabetes mellitus Quality non-insulin dependent 08/19/2013 start victoza diabetes mellitus Test results HgbA1c level 8.1 08/19/2013 None diabetes mellitus Severity moderate 08/19/2013 None diabetes mellitus Glucose monitoring daily 08/19/2013 None diabetes mellitus Significant Medications glucagon 08/19/2013 None diabetes mellitus Alleviating Factors medication 08/19/2013 None diabetes mellitus Exacerbating Factors diet 08/19/2013 None diabetes mellitus Nutrition regular diet 08/19/2013 None diabetes mellitus Exercise no exercise 08/19/2013 None diabetes mellitus Onset of Symptom onset as an adult 08/19/2013 None back pain Pertinent Findings morning stiffness 08/12/2013 None back pain Pertinent Findings sleep disturbance 08/12/2013 None diabetes mellitus Test results fasting glucose 115-140 08/12/2013 None diabetes mellitus Test results fasting glucose >140 08/12/2013 None diabetes mellitus Glucose monitoring daily 08/12/2013 None diabetes mellitus Alleviating Factors medication 08/12/2013 None diabetes mellitus Nutrition regular diet 08/12/2013 None diabetes mellitus Exercise no exercise 08/12/2013 None diabetes mellitus Quality non-insulin dependent 08/01/2013 None diabetes mellitus Test results Pt checking blood glucose readings, did not bring results to clinic 08/01/2013 None back pain Location lumbar-sacral spine 08/01/2013 None back pain Quality acute 08/01/2013 None back pain Radiating down both legs 08/01/2013 but left leg is the worse back pain Severity moderate 08/01/2013 states she can't bend over and do anything changing lesion Location-Extremities on the right foot 08/01/2013 blistered area ok-no redness or drainage diabetes mellitus Glucose monitoring daily 08/01/2013 None diabetes mellitus Significant Medical Conditions diabetic neuropathy 08/01/2013 None diabetes mellitus Alleviating Factors medication 08/01/2013 None diabetes mellitus Exacerbating Factors diet 08/01/2013 None diabetes mellitus Nutrition regular diet 08/01/2013 None diabetes mellitus Exercise no exercise 08/01/2013 None diabetes mellitus Pertinent Findings Denies dizziness 08/01/2013 None diabetes mellitus Pertinent Findings numbness 08/01/2013 None diabetes mellitus Pertinent Findings tingling 08/01/2013 None diabetes mellitus Pertinent Findings Denies vomiting 08/01/2013 None diabetes mellitus Pertinent Findings Denies weight loss 08/01/2013 None diabetes mellitus Onset of Symptom onset as an adult 08/01/2013 None changing lesion Onset and Resolution resolved 08/01/2013 None blisters Location-Extremities on the right foot 07/19/2013 None blisters Quality new 07/19/2013 None blisters Quality worsening 07/19/2013 None blisters Quality enlarging 07/19/2013 None blisters Color flesh-colored 07/19/2013 None blisters Onset of Symptom 1 days ago 07/19/2013 None blisters Pertinent Findings tenderness 07/19/2013 None skin lesion Location right lower leg 07/15/2013 None skin lesion Quality scabbed 07/15/2013 None skin lesion Quality red 07/15/2013 None skin lesion Quality erythematous 07/15/2013 None skin lesion Onset and Resolution sudden in onset 07/15/2013 None skin lesion Onset of Symptom 1 weeks ago 07/15/2013 hit right armando on a storage container and caused abrasion skin lesion Severity moderate 07/15/2013 None skin lesion Frequency of Episodes increasing 07/15/2013 None skin lesion Triggers activity 07/15/2013 None skin lesion Pertinent Findings Denies fever 07/15/2013 None spasms/spasticity Quality chronic 06/27/2013 None spasms/spasticity Onset and Resolution ongoing 06/27/2013 wants refill of flexeril spasms/spasticity Frequency of Episodes unchanged 06/27/2013 None diabetes mellitus Quality non-insulin dependent 06/27/2013 None diabetes mellitus Test results Pt checking blood glucose readings, did not bring results to clinic 06/27/2013 None diabetes mellitus Onset of Symptom onset as an adult 06/27/2013 None diabetes mellitus Severity moderate 06/27/2013 None diabetes mellitus Blood glucose levels "up and down" - 104-120 06/27/2013 None spasms/spasticity Pertinent Findings neck pain 06/27/2013 pt states that her neck and lower back are spasming diabetes mellitus Glucose monitoring occasional glucose testing 06/27/2013 None diabetes mellitus Nutrition ADA diet 06/27/2013 None diabetes mellitus Exercise no exercise 06/27/2013 None spasms/spasticity Triggers no known associated factors 06/27/2013 None dyspnea Pertinent Findings increased work of breathing 06/10/2013 None dyspnea Pertinent Findings edema 06/10/2013 None diabetes mellitus Test results Pt checking blood glucose readings, did not bring results to clinic 06/10/2013 None diabetes mellitus Pertinent Findings dizziness 06/10/2013 None diabetes mellitus Pertinent Findings dyspnea 06/10/2013 None diabetes mellitus Pertinent Findings nausea 06/10/2013 None dyspnea Onset and Resolution gradual in onset 06/10/2013 None dyspnea Onset and Resolution ongoing 06/10/2013 None diabetes mellitus Onset of Symptom onset as an adult 06/10/2013 None diabetes mellitus Quality chronic 06/10/2013 None diabetes mellitus Exacerbating Factors diet 06/10/2013 None diabetes mellitus Nutrition regular diet 06/10/2013 pt does not follow an ADA diet dyspnea Quality acute 05/07/2013 None dyspnea Pertinent Findings cough 05/07/2013 None dyspnea Pertinent Findings nasal congestion 05/07/2013 None dyspnea Pertinent Findings sputum production 05/07/2013 None dyspnea Pertinent Findings localized wheezing 05/07/2013 None dyspnea Onset of Symptom 2-3 weeks ago 05/07/2013 None dyspnea Limitation on Activities moderately limits activities 05/07/2013 None dyspnea Pertinent Findings Denies aspiration 05/07/2013 None dyspnea Pertinent Findings Denies chills 05/07/2013 None dyspnea Pertinent Findings fever 05/07/2013 pt states that she had a low grade fever about 2-3 days ago - 100-101F - resolved with tylenol edema Quality chronic 04/16/2013 watching food intake, drinking water. is on levaquin for sinus infection. not taking any prednisone currently. edema Quality worsening 04/16/2013 None edema Quality pitting 04/16/2013 None edema Quality painful 04/16/2013 None edema Onset and Resolution ongoing 04/16/2013 None edema Location diffusely 04/16/2013 None edema Location on both legs 04/16/2013 None edema Location on the abdomen 04/16/2013 None edema Location on the face 04/16/2013 None edema Pertinent Findings limb pain / tenderness 04/16/2013 None edema Limitation on Activities moderately limits activities 04/16/2013 pt notes swelling of her lower legs - she had salty stuff yesterday, she notes that she is starting back to having more problems, sleeping all day, slurring her words. edema Location on both legs 03/21/2013 None edema Quality intermittent 03/21/2013 None edema Quality stable 03/21/2013 None diabetes mellitus Quality chronic 03/21/2013 None diabetes mellitus Test results Pt checking blood glucose readings, did not bring results to clinic 03/21/2013 None diabetes mellitus Quality worsening 03/21/2013 pt states blood sugar is higher ( 140-150) back pain Location lumbar-sacral spine 03/21/2013 None back pain Quality aching 03/21/2013 None back pain Quality worsening 03/21/2013 None back pain Onset and Resolution ongoing 03/21/2013 None back pain Limitation on Activities moderately limits activities 03/21/2013 None back pain Frequency of Episodes daily 03/21/2013 None back pain Triggers activity 03/21/2013 None back pain Alleviating Factors physical therapy 03/21/2013 None edema Limitation on Activities does not limit activities 03/21/2013 None edema Onset of Symptom _ years ago 03/21/2013 None edema Frequency of Episodes decreasing 03/21/2013 None edema Significant Past Medical History cardiac disease 03/21/2013 None edema Significant Past Medical History renal disease 03/21/2013 None edema Significant Medications diuretics 03/21/2013 None edema Triggers no known associated factors 03/21/2013 None edema Alleviating Factors medication 03/21/2013 None back pain Alleviating Factors medication 03/21/2013 ran out of hydrocodone-has not been taking diabetes mellitus Blood glucose levels greater than 120 03/21/2013 None diabetes mellitus Glucose monitoring occasional glucose testing 03/21/2013 None diabetes mellitus Exacerbating Factors diet 03/21/2013 None diabetes mellitus Exercise no exercise 03/21/2013 None diabetes mellitus Pertinent Findings Denies dehydration 03/21/2013 None diabetes mellitus Pertinent Findings dizziness 03/21/2013 None diabetes mellitus Pertinent Findings Denies lethargy 03/21/2013 None diabetes mellitus Pertinent Findings Denies nausea 03/21/2013 None diabetes mellitus Onset of Symptom onset as an adult 03/21/2013 None diabetes mellitus Quality insulin dependent 02/12/2013 None diabetes mellitus Test results Pt checking blood glucose readings, did not bring results to clinic 02/12/2013 None edema Onset and Resolution ongoing 02/12/2013 but improving abdominal pain Location diffusely 02/12/2013 None abdominal pain Location in the RLQ 02/12/2013 None abdominal pain Quality cramping 02/12/2013 None abdominal pain Quality acute 02/12/2013 None abdominal pain Onset and Resolution ongoing 02/12/2013 None abdominal pain Limitation on Activities moderately limits activities 02/12/2013 None abdominal pain Frequency of Episodes daily 02/12/2013 None abdominal pain Timing of Episodes all day long 02/12/2013 None abdominal pain Exacerbating Factors eating 02/12/2013 None edema Frequency of Episodes decreasing 02/12/2013 None edema Significant Past Medical History cardiac disease 02/12/2013 None edema Significant Medications diuretics 02/12/2013 None edema Alleviating Factors medication 02/12/2013 None edema Pertinent Findings Denies back pain 02/12/2013 None edema Pertinent Findings Denies dark urine 02/12/2013 None edema Pertinent Findings Denies dyspnea 02/12/2013 None edema Pertinent Findings dyspnea on exertion 02/12/2013 None edema Pertinent Findings Denies lightheadedness 02/12/2013 None edema Pertinent Findings nausea 02/12/2013 None edema Pertinent Findings Denies near syncope 02/12/2013 None edema Pertinent Findings Denies palpitations 02/12/2013 None edema Pertinent Findings tachycardia 02/12/2013 None edema Pertinent Findings Denies tachypnea 02/12/2013 None Hospital Follow Up Quality acute illness 02/04/2013 patient still has painful pitting edema on both ankles. patient states she still feels like her sinuses and ears are clogged up. is supposed to start PT tomorrow but feels very dizzy. no appetite. Hospital Follow Up Severity moderate 02/04/2013 None Hospital Follow Up Pertinent Findings other arthralgias 02/04/2013 None Hospital Follow Up Pertinent Findings Denies fever 02/04/2013 None Hospital Follow Up Pertinent Findings Other: dyspnea, tachycardia 02/04/2013 None Hospital Follow Up Onset and Resolution ongoing 02/04/2013 None edema Onset and Resolution gradual in onset 01/17/2013 None edema Pertinent Findings dyspnea 01/17/2013 None edema Pertinent Findings lightheadedness 01/17/2013 None edema Location on both legs 01/17/2013 None edema Quality pitting 01/17/2013 None edema Pertinent Findings tachycardia 01/17/2013 None edema Pertinent Findings limb pain / tenderness 01/17/2013 None edema Triggers no known associated factors 01/17/2013 states legs are cramping also edema Pertinent Findings decreased urinary output 01/17/2013 None edema Pertinent Findings dyspnea on exertion 01/17/2013 None edema Onset of Symptom 10 days ago 01/17/2013 worsening over the past 10 days edema Limitation on Activities moderately limits activities 01/17/2013 None edema Frequency of Episodes increasing 01/17/2013 None edema Significant Past Medical History cardiac disease 01/17/2013 None edema Significant Past Medical History renal disease 01/17/2013 None edema Significant Medications diuretics 01/17/2013 didn't take her lasix this morning due to appointment edema Alleviating Factors medication 01/17/2013 None edema Location on both arms 01/17/2013 None edema Location diffusely 01/17/2013 None earache Quality throbbing 12/31/2012 None earache Onset and Resolution sudden in onset 12/31/2012 None earache Severity moderate 12/31/2012 None earache Length of Episodes 2 days 12/31/2012 None earache Location left ear 12/31/2012 None sores Location-Extremities on the left ( 5th) toe 12/31/2012 None sores Color red 2012 None sores Onset and Resolution sudden in onset 12/31/2012 None sores Onset of Symptom 2 weeks ago 12/31/2012 None sores Pertinent Findings tenderness 12/31/2012 None sores Location-Extremities on the left armando 12/31/2012 None sinus congestion Onset and Resolution gradual in onset 12/20/2012 None sinus congestion Onset and Resolution ongoing 12/20/2012 None sinus congestion Quality pressure 12/20/2012 None sinus congestion Quality pain 12/20/2012 None sinus congestion Location on both sides 12/20/2012 None sinus congestion Pertinent Findings facial pain 12/20/2012 None sinus congestion Pertinent Findings cough 12/20/2012 None sinus congestion Onset of Symptom 4 days ago 12/20/2012 None sinus congestion Severity moderate 12/20/2012 None sinus congestion Frequency of Episodes increasing 12/20/2012 None sinus congestion Significant Medical Conditions allergic rhinitis 12/20/2012 None sinus congestion Triggers allergens 12/20/2012 None sinus congestion Pertinent Findings decreased energy level 12/20/2012 None sinus congestion Onset and Resolution gradual in onset 10/29/2012 None sinus congestion Severity moderate 10/29/2012 None sinus congestion Frequency of Episodes increasing 10/29/2012 None sinus congestion Significant Medications nasal spray 10/29/2012 None sinus congestion Triggers allergens 10/29/2012 None sinus congestion Alleviating Factors medication 10/29/2012 -uses sinus rinses and nathanael sinus congestion Exacerbating Factors allergen exposure 10/29/2012 None sinus congestion Quality pressure 10/29/2012 None sinus congestion Onset of Symptom 3 days ago 10/29/2012 None nasal allergies Location in both nares 10/29/2012 None nasal allergies Onset and Resolution sudden in onset 10/29/2012 None nasal allergies Onset and Resolution worse during the day 10/29/2012 None nasal allergies Onset of Symptom 3 days ago 10/29/2012 None nasal allergies Severity moderate 10/29/2012 None nasal allergies Triggers known allergens 10/29/2012 None nasal allergies Alleviating Factors removal of allergen 10/29/2012 None nasal allergies Pertinent Findings cough 10/29/2012 None nasal allergies Pertinent Findings hoarseness 10/29/2012 None nasal allergies Pertinent Findings nasal crusting 10/29/2012 None back pain Location in the left lower back area 09/21/2012 None back pain Quality acute 09/21/2012 None back pain Onset and Resolution ongoing 09/21/2012 None back pain Onset of Symptom _ days ago 09/21/2012 None back pain Limitation on Activities does not limit activities 09/21/2012 None back pain Frequency of Episodes increasing 09/21/2012 None back pain Triggers activity 09/21/2012 None back pain Alleviating Factors medication 09/21/2012 had injection in the past that helped hypertension Quality chronic 09/06/2012 None hypertension Onset and Resolution ongoing 09/06/2012 None diabetes mellitus Quality chronic 09/06/2012 None wheezing Quality worsening 09/06/2012 None wheezing Onset of Symptom 4 days ago 09/06/2012 None hypertension Blood Pressure Values patient checking blood pressure at home - did not bring in readings 09/06/2012 None hypertension Severity mild 09/06/2012 None hypertension Pertinent Findings anxiety 09/06/2012 None hypertension Pertinent Findings decreased energy 09/06/2012 None hypertension Exacerbating Factors stress 09/06/2012 None hypertension Alleviating Factors medication 09/06/2012 None hypertension Significant Family History heart disease 09/06/2012 None hypertension Significant Family History cerebrovascular accident 09/06/2012 None hypertension Significant Family History hypertension 09/06/2012 None hypertension Quality chronic 08/23/2012 None hypertension Onset and Resolution ongoing 08/23/2012 None diabetes mellitus Quality non-insulin dependent 08/23/2012 None diabetes mellitus Test results Pt checking blood glucose readings, did not bring results to clinic 08/23/2012 states it has been running 151 diarrhea Quality intermittent 08/23/2012 None diarrhea Onset and Resolution ongoing 08/23/2012 None hypertension Onset of Symptom during adulthood 08/23/2012 None hypertension Blood Pressure Values patient checking blood pressure at home - did not bring in readings 08/23/2012 None hypertension Severity not consistently severe symptoms, the symptoms fluctuate from no symptoms to anxiety and headaches 08/23/2012 None hypertension Frequency of Episodes unchanged 08/23/2012 None hypertension Triggers stress 08/23/2012 None hypertension Alleviating Factors medication 08/23/2012 None diabetes mellitus Severity mild 08/23/2012 None diabetes mellitus Blood glucose levels greater than 120 08/23/2012 None diabetes mellitus Glucose monitoring daily 08/23/2012 None diabetes mellitus Nutrition regular diet 08/23/2012 None diabetes mellitus Exacerbating Factors diet 08/23/2012 None diabetes mellitus Pertinent Findings Denies dizziness 08/23/2012 None diabetes mellitus Pertinent Findings Denies dyspnea 08/23/2012 None diabetes mellitus Pertinent Findings Denies vomiting 08/23/2012 None diabetes mellitus Pertinent Findings Denies lethargy 08/23/2012 None diabetes mellitus Onset of Symptom onset during youth 08/23/2012 None diarrhea Limitation on Activities does not limit activities 08/23/2012 None diarrhea Frequency of Episodes 4-6 stools per day 08/23/2012 None headache Location in the frontal area 08/13/2012 None headache Quality constant 08/13/2012 None headache Quality pressure 08/13/2012 None headache Quality throbbing 08/13/2012 None headache Onset and Resolution ongoing 08/13/2012 None headache Pertinent Findings weakness 08/13/2012 None headache Pertinent Findings Denies syncope 08/13/2012 None headache Pertinent Findings lightheadedness 08/13/2012 None headache Pertinent Findings lethargy 08/13/2012 None headache Pertinent Findings dizziness 08/13/2012 None headache Pertinent Findings decreased energy 08/13/2012 None headache Exacerbating Factors activity 08/13/2012 None headache Pertinent Findings vomiting 08/13/2012 for 3 days vomiting Quality acute 08/13/2012 None vomiting Onset and Resolution ongoing 08/13/2012 None vomiting Onset of Symptom 3 days ago 08/13/2012 None vomiting Severity moderate 08/13/2012 None vomiting Frequency of Episodes increasing 08/13/2012 None headache Limitation on Activities does not limit activities 08/13/2012 None headache Frequency of Episodes increasing 08/13/2012 None headache Triggers activity 08/13/2012 None vomiting Pertinent Findings Denies abdominal distension 08/13/2012 None vomiting Pertinent Findings gastroenteritis 08/13/2012 None vomiting Pertinent Findings feeding poorly 08/13/2012 None vomiting Pertinent Findings Denies lethargy 08/13/2012 None vomiting Pertinent Findings Denies lightheadedness 08/13/2012 None vomiting Pertinent Findings Denies respiratory distress 08/13/2012 None vomiting Pertinent Findings Denies neck pain 08/13/2012 None vomiting Pertinent Findings Denies melena 08/13/2012 None vomiting Quality acute 08/07/2012 None vomiting Onset and Resolution ongoing 08/07/2012 None diarrhea Frequency of Episodes >8 stools per day 08/07/2012 None diarrhea Frequency of Episodes increasing 08/07/2012 None vomiting Onset of Symptom 1 weeks ago 08/07/2012 None diarrhea Quality acute 08/07/2012 None diarrhea Onset and Resolution ongoing 08/07/2012 None diarrhea Onset of Symptom 1 weeks ago 08/07/2012 None vomiting Pertinent Findings decreased energy level 08/07/2012 None vomiting Pertinent Findings decreased liquid intake 08/07/2012 None vomiting Pertinent Findings lightheadedness 08/07/2012 None vomiting Pertinent Findings nausea 08/07/2012 None vomiting Pertinent Findings unable to tolerate any liquids 08/07/2012 states she hasnt kept anything down and isnt eating. vomiting Pertinent Findings feeding poorly 08/07/2012 None diarrhea Pertinent Findings chills 08/07/2012 None diarrhea Pertinent Findings emesis 08/07/2012 None diarrhea Pertinent Findings lethargy 08/07/2012 None diarrhea Pertinent Findings nausea 08/07/2012 None diarrhea Pertinent Findings lightheadedness 08/07/2012 None vomiting Severity moderate 08/07/2012 None vomiting Significant Medical Conditions diabetes 08/07/2012 None vomiting Significant Medications antibiotics 08/07/2012 finished recently vomiting Triggers no known associated factors 08/07/2012 None diarrhea Limitation on Activities moderately limits activities 08/07/2012 None dizziness Quality lightheadedness 07/06/2012 None dizziness Quality imbalance 07/06/2012 None dizziness Quality swaying 07/06/2012 None dizziness Onset and Resolution sudden in onset 07/06/2012 None dizziness Pertinent Findings lightheadedness 07/06/2012 None dizziness Pertinent Findings Denies nausea 07/06/2012 None dizziness Quality spinning 07/06/2012 None sinus congestion Onset and Resolution sudden in onset 07/06/2012 None sinus congestion Onset of Symptom 1 days ago 07/06/2012 None sinus congestion Pertinent Findings decreased energy level 07/06/2012 None sinus congestion Pertinent Findings facial pain 07/06/2012 None sinus congestion Quality acute 07/06/2012 None sinus congestion Location on both sides 07/06/2012 None sinus congestion Severity moderate 07/06/2012 None sinus congestion Frequency of Episodes increasing 07/06/2012 None sinus congestion Timing of Episodes all day long 07/06/2012 None sinus congestion Significant Medical Conditions allergic rhinitis 07/06/2012 None sinus congestion Significant Medications antibiotics 07/06/2012 finished levaquin a week ago sinus congestion Triggers allergens 07/06/2012 None sinus congestion Alleviating Factors medication 07/06/2012 None hypertension Quality chronic 06/07/2012 None hypertension Onset and Resolution ongoing 06/07/2012 None diabetes mellitus Quality non-insulin dependent 06/07/2012 None hypertension Quality acute 06/07/2012 None hypertension Onset of Symptom during adulthood 06/07/2012 None hypertension Blood Pressure Values patient checking blood pressure at home - did not bring in readings 06/07/2012 None hypertension Severity not consistently severe symptoms, the symptoms fluctuate from no symptoms to anxiety and headaches 06/07/2012 None hypertension Frequency of Episodes increasing 06/07/2012 None hypertension Significant Medical Conditions cardiac disease 06/07/2012 None hypertension Triggers stress 06/07/2012 None hypertension Alleviating Factors medication 06/07/2012 None hypertension Pertinent Findings Denies confusion 06/07/2012 None hypertension Pertinent Findings decreased energy 06/07/2012 None hypertension Pertinent Findings dizziness 06/07/2012 None hypertension Pertinent Findings Denies dyspnea 06/07/2012 None hypertension Pertinent Findings Denies edema 06/07/2012 None hypertension Pertinent Findings Denies nausea 06/07/2012 None hypertension Pertinent Findings Denies palpitations 06/07/2012 None hypertension Pertinent Findings Denies stroke 06/07/2012 None hypertension Pertinent Findings tachycardia 06/07/2012 None hypertension Pertinent Findings Denies vomiting 06/07/2012 None hypertension Pertinent Findings dizziness 05/28/2012 None hypertension Quality acute 05/28/2012 None hypertension Quality chronic 05/28/2012 None hypertension Onset and Resolution ongoing 05/28/2012 None hypertension Onset of Symptom during adulthood 05/28/2012 None hypertension Blood Pressure Values patient checking blood pressure at home - did not bring in readings 05/28/2012 None hypertension Severity not consistently severe symptoms, the symptoms fluctuate from no symptoms to anxiety and headaches 05/28/2012 None hypertension Frequency of Episodes increasing 05/28/2012 None hypertension Significant Medical Conditions cardiac disease 05/28/2012 None hypertension Triggers stress 05/28/2012 None hypertension Alleviating Factors medication 05/28/2012 None hypertension Pertinent Findings Denies confusion 05/28/2012 None hypertension Pertinent Findings decreased energy 05/28/2012 None hypertension Pertinent Findings Denies dyspnea 05/28/2012 None hypertension Pertinent Findings Denies edema 05/28/2012 None hypertension Pertinent Findings Denies nausea 05/28/2012 None hypertension Pertinent Findings Denies palpitations 05/28/2012 None hypertension Pertinent Findings Denies stroke 05/28/2012 None hypertension Pertinent Findings tachycardia 05/28/2012 None hypertension Pertinent Findings Denies vomiting 05/28/2012 None blood pressure followup Quality chronic 05/17/2012 None blood pressure followup Onset and Resolution ongoing 05/17/2012 None blood pressure followup Onset of Symptom during adulthood 05/17/2012 None blood pressure followup Blood Pressure Values Stage 1:SBP 140-159 mmHg / DBP 90-99 mmHg 05/17/2012 None blood pressure followup Frequency of Episodes unchanged 05/17/2012 None blood pressure followup Significant Family History hypertension 05/17/2012 None blood pressure followup Triggers stress 05/17/2012 None blood pressure followup Pertinent Findings Denies dizziness 05/17/2012 None blood pressure followup Pertinent Findings Denies irritability 05/17/2012 None blood pressure followup Pertinent Findings Denies lethargy 05/17/2012 None blood pressure followup Pertinent Findings Denies loss of vision 05/17/2012 None blood pressure followup Pertinent Findings Denies stroke 05/17/2012 None blood pressure followup Pertinent Findings Denies tachycardia 05/17/2012 None edema Quality acute None edema Quality painful 05/02/2012 None edema Quality worsening 05/02/2012 None edema Onset and Resolution gradual in onset 05/02/2012 None edema Onset of Symptom 1 weeks ago 05/02/2012 states she also fell a week ago hypertension Quality chronic 05/02/2012 None hypertension Onset and Resolution ongoing 05/02/2012 None hypertension Blood Pressure Values patient checking blood pressure at home - did not bring in readings 05/02/2012 None edema Limitation on Activities does not limit activities 05/02/2012 None edema Frequency of Episodes unchanged 05/02/2012 None edema Significant Medications diuretics 05/02/2012 None edema Triggers diet change 05/02/2012 went to a dinner a couple of night ago and thinks it had a lot of salt in the meal-had a hard time getting her shoes off because her feet were so swollen. hypertension Frequency of Episodes unchanged 05/02/2012 None hypertension Triggers no known associated factors 05/02/2012 None hypertension Alleviating Factors medication 05/02/2012 None hypertension Exacerbating Factors change in dietary habits 05/02/2012 None hypertension Exacerbating Factors stress 05/02/2012 None hypertension Pertinent Findings Denies dizziness 05/02/2012 None hypertension Pertinent Findings Denies confusion 05/02/2012 None hypertension Pertinent Findings Denies lethargy 05/02/2012 None hypertension Pertinent Findings Denies nausea 05/02/2012 None hypertension Pertinent Findings Denies palpitations 05/02/2012 None hypertension Pertinent Findings Denies tachycardia 05/02/2012 None hypertension Pertinent Findings Denies vomiting 05/02/2012 None hypertension Quality chronic 04/10/2012 None hypertension Onset and Resolution ongoing 04/10/2012 None diabetes mellitus Quality insulin dependent 04/10/2012 None diabetes mellitus Quality chronic 04/10/2012 None hypertension Onset of Symptom during adulthood 04/10/2012 None hypertension Blood Pressure Values not checking blood pressure at home 04/10/2012 None hypertension Severity not consistently severe symptoms, the symptoms fluctuate from no symptoms to anxiety and headaches 04/10/2012 None hypertension Triggers stress 04/10/2012 work very stressful, boss demanding and very hard to get along with. States she is trying to decide if she can retire or not. States their finances won't allow for her to retire until the end of the year. hypertension Exacerbating Factors stress 04/10/2012 None diabetes mellitus Test results Pt checking blood glucose readings, did not bring results to clinic 04/10/2012 None diabetes mellitus Alleviating Factors medication 04/10/2012 None diabetes mellitus Exacerbating Factors diet 04/10/2012 None diabetes mellitus Nutrition regular diet 04/10/2012 None diabetes mellitus Exercise no exercise 04/10/2012 None foot ulcer Location left foot 02/27/2012 None foot ulcer Quality dull pain 02/27/2012 None foot ulcer Onset of Symptom 2-3 weeks ago 02/27/2012 None foot ulcer Limitation on Activities allows weight bearing activity 02/27/2012 None foot ulcer Severity moderate 02/27/2012 None foot ulcer Pertinent Findings limping 02/27/2012 None foot ulcer Pertinent Findings Denies redness 02/27/2012 None foot ulcer Pertinent Findings Denies tingling 02/27/2012 None edema Onset and Resolution ongoing 02/15/2012 None edema Limitation on Activities does not limit activities 02/15/2012 None skin lesion Location diffusely 02/15/2012 bottom of left foot edema Timing of Episodes in the evening 02/15/2012 None edema Significant Medications diuretics 02/15/2012 None edema Triggers standing position 02/15/2012 None edema Triggers activity 02/15/2012 None edema Alleviating Factors medication 02/15/2012 None edema Pertinent Findings Denies back pain 02/15/2012 None edema Pertinent Findings Denies nausea 02/15/2012 None edema Pertinent Findings Denies tachycardia 02/15/2012 None edema Pertinent Findings Denies tachypnea 02/15/2012 None edema Location on both legs 02/15/2012 None skin lesion Onset of Symptom 5 days ago 02/15/2012 None skin lesion Onset and Resolution ongoing 02/15/2012 None skin lesion Severity moderate 02/15/2012 None skin lesion Triggers activity 02/15/2012 painful to stand on left foot edema Onset and Resolution gradual in onset 02/01/2012 None dizziness Quality loss of balance 02/01/2012 None dizziness Onset and Resolution sudden in onset 02/01/2012 None fatigue Frequency of Episodes increasing 02/01/2012 None edema Limitation on Activities does not limit activities 02/01/2012 None edema Onset of Symptom 5 days ago 02/01/2012 None edema Frequency of Episodes increasing 02/01/2012 None edema Triggers no known associated factors 02/01/2012 states she hasn't been eating any differently. States she did eat BBQ from [employer] yesterday for lunch. hypertension Quality chronic 12/14/2011 None hypertension Onset and Resolution ongoing 12/14/2011 None hypertension Blood Pressure Values patient checking blood pressure at home - did not bring in readings 12/14/2011 None diabetes mellitus Test results Pt checking blood glucose readings, did not bring results to clinic 12/14/2011 None nausea Onset and Resolution ongoing 12/14/2011 comes and goes, has been using Zofran diabetes mellitus Onset of Symptom onset as an adult 12/14/2011 None diabetes mellitus Severity mild 12/14/2011 None diabetes mellitus Alleviating Factors medication 12/14/2011 None diabetes mellitus Exacerbating Factors diet 12/14/2011 None diabetes mellitus Pertinent Findings Denies behavioral changes 12/14/2011 None diabetes mellitus Pertinent Findings Denies dehydration 12/14/2011 None diabetes mellitus Pertinent Findings Denies dizziness 12/14/2011 None diabetes mellitus Pertinent Findings dyspnea 12/14/2011 None nausea Onset of Symptom 1 days ago 11/30/2011 None nausea Pertinent Findings chills 11/30/2011 None nausea Frequency of Episodes unchanged 11/30/2011 None nausea Triggers no known associated factors 11/30/2011 None nausea Alleviating Factors no alleviatng factors 11/30/2011 None nausea Pertinent Findings Denies cough 11/30/2011 None nausea Pertinent Findings gastroenteritis 11/30/2011 None nausea Pertinent Findings emesis 11/30/2011 None nausea Quality acute 11/30/2011 None diarrhea Quality acute 11/30/2011 None diarrhea Onset and Resolution ongoing 11/30/2011 None diarrhea Onset of Symptom 2 days ago 11/30/2011 None diarrhea Limitation on Activities moderately limits activities 11/30/2011 None diarrhea Frequency of Episodes 6-8 stools per day 11/30/2011 None diarrhea Frequency of Episodes decreasing 11/30/2011 since taking immodium. diarrhea Timing of Episodes no specific time 11/30/2011 None diarrhea Triggers no known associated factors 11/30/2011 None diarrhea Alleviating Factors antidiarrheal agent 11/30/2011 None diarrhea Pertinent Findings nausea 11/30/2011 None vomiting Quality acute 11/30/2011 None vomiting Onset and Resolution ongoing 11/30/2011 None vomiting Quality dry heaves 11/30/2011 None vomiting Onset of Symptom 2 days ago 11/30/2011 None vomiting Severity moderate 11/30/2011 None vomiting Frequency of Episodes unchanged 11/30/2011 None vomiting Triggers no known associated factors 11/30/2011 None diarrhea Significant Medications antibiotics 11/30/2011 recent levaquin for pneumonia diabetes mellitus Test results Pt checking blood glucose readings, did not bring results to clinic 11/17/2011 Pt states they've been very good hypertension Blood Pressure Values not checking blood pressure at home 11/17/2011 None diabetes mellitus Severity mild 11/17/2011 None diabetes mellitus Onset of Symptom onset as an adult 11/17/2011 None diabetes mellitus Blood glucose levels between 60 and 120 11/17/2011 None diabetes mellitus Glucose monitoring daily 11/17/2011 None diabetes mellitus Alleviating Factors medication 11/17/2011 None diabetes mellitus Exacerbating Factors diet 11/17/2011 None diabetes mellitus Pertinent Findings Denies behavioral changes 11/17/2011 None diabetes mellitus Pertinent Findings Denies dehydration 11/17/2011 None diabetes mellitus Pertinent Findings Denies dizziness 11/17/2011 None diabetes mellitus Pertinent Findings dyspnea 11/17/2011 None diabetes mellitus Exercise minimal exercise 11/17/2011 None cough Location in the lung 11/03/2011 None cough Quality productive 11/03/2011 None cough Onset of Symptom 3 days ago 11/03/2011 None cough Pertinent Findings chills 11/03/2011 None cough Pertinent Findings lethargy 11/03/2011 None cough Pertinent Findings sputum production 11/03/2011 None cough Pertinent Findings weakness 11/03/2011 states she has fallen several times wound follow up Pertinent Findings states toe is improving 11/03/2011 None chest pain/pressure Quality dull 11/03/2011 states pain is probably from a fall chest pain/pressure Location in the substernal area 11/03/2011 pt has extensive bruising per her report to chest, abdomen, arms arrhythmia Quality tachycardia 10/24/2011 None arrhythmia Onset and Resolution ongoing 10/24/2011 None arrhythmia Onset of Symptom during adulthood 10/24/2011 None arrhythmia Triggers no known associated factors 10/24/2011 None depression Quality chronic 10/24/2011 None depression Onset and Resolution ongoing 10/24/2011 None depression Frequency of Episodes increasing 10/24/2011 None edema Quality acute None edema Onset and Resolution ongoing 10/24/2011 states her feet swelled when she got a steroid shot in her back from Dr. Vasquez. edema Limitation on Activities does not limit activities 10/24/2011 None edema Length of Episodes 2-3 days 10/24/2011 None sores Location-Major on the toes 10/24/2011 right great toe sores Quality acute None sores Color erythematous 10/24/2011 None sores Onset and Resolution ongoing 10/24/2011 None sores Onset of Symptom 1 month ago 10/24/2011 None sores Prior Treatments unresponsive to treatment 10/24/2011 using neosporin sores Triggers no known triggers 10/24/2011 None edema Onset and Resolution ongoing 09/26/2011 None edema Onset and Resolution gradual in onset 09/26/2011 None edema Onset of Symptom 3 days ago 09/26/2011 --Improved edema Limitation on Activities does not limit activities 09/26/2011 --Improved edema Frequency of Episodes increasing 09/26/2011 --Improved edema Significant Past Medical History cardiac disease 09/26/2011 None edema Triggers no known associated factors 09/26/2011 None edema Location on both ankles 09/26/2011 None edema Quality acute None edema Quality painful 09/26/2011 None edema Onset of Symptom 3 days ago 09/20/2011 None edema Location on both ankles 09/20/2011 None edema Quality painful 09/20/2011 None edema Quality acute None edema Onset and Resolution gradual in onset 09/20/2011 None edema Limitation on Activities does not limit activities 09/20/2011 None edema Frequency of Episodes increasing 09/20/2011 None edema Significant Past Medical History cardiac disease 09/20/2011 None edema Triggers no known associated factors 09/20/2011 None sinus congestion Onset of Symptom 3 days ago 09/01/2011 None nasal allergies Onset of Symptom 3 days ago 09/01/2011 None sinus congestion Quality pressure 09/01/2011 None sinus congestion Onset and Resolution gradual in onset 09/01/2011 None sinus congestion Severity moderate 09/01/2011 None sinus congestion Frequency of Episodes increasing 09/01/2011 None sinus congestion Significant Medications nasal spray 09/01/2011 None sinus congestion Triggers allergens 09/01/2011 None sinus congestion Alleviating Factors medication 09/01/2011 -uses sinus rinses and nathanael sinus congestion Exacerbating Factors allergen exposure 09/01/2011 None nasal allergies Location in both nares 09/01/2011 None nasal allergies Onset and Resolution sudden in onset 09/01/2011 None nasal allergies Onset and Resolution worse during the day 09/01/2011 None nasal allergies Triggers known allergens 09/01/2011 None nasal allergies Alleviating Factors removal of allergen 09/01/2011 None nasal allergies Severity moderate 09/01/2011 None nasal allergies Pertinent Findings cough 09/01/2011 None nasal allergies Pertinent Findings hoarseness 09/01/2011 None nasal allergies Pertinent Findings nasal crusting 09/01/2011 None nausea Onset and Resolution ongoing 08/15/2011 None nausea Frequency of Episodes unchanged 08/15/2011 None nausea Pertinent Findings emesis 08/15/2011 q am hip pain Quality acute 08/15/2011 left hip, no improvement in pain chest pain/pressure Location on the left side of on the chest 08/15/2011 radiates down into left side, states it also is into left upper quad. states it is constant nausea Timing of Episodes in the morning 08/15/2011 reports that she feels vomiting is related to sinus drainage nausea Timing of Episodes after meals 08/15/2011 before and after meals, states that this AM was after breakfast which consisted of a cereal bar and diet dr guerrier hip pain Timing of Episodes in the morning 08/15/2011 None hip pain Timing of Episodes in the afternoon 08/15/2011 None hip pain Timing of Episodes in the evening 08/15/2011 None hip pain Onset and Resolution gradual in onset 08/15/2011 None hip pain Onset and Resolution worse during the day 08/15/2011 reports severe pain when walking up and down stairs hip pain Onset of Symptom 2 weeks ago 08/15/2011 None hip pain Frequency of Episodes unchanged 08/15/2011 None hip pain Limitation on Activities restricts ambulation 08/15/2011 stairway ambulation hip pain Severity moderate 08/15/2011 None hip pain Mechanism of injury unknown 08/15/2011 None hip pain Exacerbating Factors weight bearing 08/15/2011 None hip pain Radiating radiates down the leg to the foot 08/15/2011 None chest pain/pressure Quality stabbing 08/15/2011 None chest pain/pressure Quality aching 08/15/2011 None chest pain/pressure Onset and Resolution sudden in onset 08/15/2011Monday, chest pain/pressure Onset and Resolution ongoing 08/15/2011 None chest pain/pressure Limitation on Activities does not limit activities 08/15/2011 None chest pain/pressure Scale of 1(mild) to 10(severe) 5 08/15/2011 None chest pain/pressure Frequency of Episodes daily 08/15/2011 None chest pain/pressure Alleviating Factors lying down 08/15/2011 None chest pain/pressure Exacerbating Factors coughing 08/15/2011 and vomiting arrhythmia Quality tachycardia 08/09/2011 None arrhythmia Onset and Resolution sudden in onset 08/09/2011 None arrhythmia Onset of Symptom 2 days ago 08/09/2011 None sciatica Quality dull pain 08/09/2011 None sciatica Onset of Symptom 2 days ago 08/09/2011 -improved after steroid injection but starting hurting again on Monday. States it is worse now. sinus congestion Onset and Resolution gradual in onset 08/09/2011 None sinus congestion Onset of Symptom 1 weeks ago 08/09/2011 None sinus congestion Severity moderate 08/09/2011 None sinus congestion Frequency of Episodes increasing 08/09/2011 None sinus congestion Significant Medical Conditions allergic rhinitis 08/09/2011 - states the windows were open at school last week and her sinus starting really bothering her after that. sinus congestion Significant Medications nasal spray 08/09/2011 None sinus congestion Triggers allergens 08/09/2011 None sinus congestion Alleviating Factors medication 08/09/2011 -uses sinus rinses and nathanael sinus congestion Exacerbating Factors allergen exposure 08/09/2011 None sciatica Location diffusely 08/09/2011 -left low back sciatica Onset and Resolution ongoing 08/09/2011 None sciatica Frequency of Episodes increasing 08/09/2011 None sciatica Triggers no known associated factors 08/09/2011 None arrhythmia Limitation on Activities does not limit activities 08/09/2011 None arrhythmia Frequency of Episodes increasing 08/09/2011 None arrhythmia Significant Medications beta- leyla 08/09/2011 -states she takes her cartia at [facility]-took it last night. States she takes metoprolol and lisinopril/ hctz in the morning and has not taken those yet today. arrhythmia Triggers stress 08/09/2011 None arrhythmia Alleviating Factors medication 08/09/2011 None back pain Location in the left lower back area 08/01/2011 None back pain Quality acute 08/01/2011 None back pain Onset and Resolution acute 08/01/2011 None back pain Limitation on Activities does not limit activities 08/01/2011 None back pain Frequency of Episodes increasing 08/01/2011 None back pain Onset of Symptom several weeks ago 08/01/2011 None back pain Triggers no known associated factors 08/01/2011 States she has a history of sciatica back pain Alleviating Factors medication 08/01/2011 None back pain Initial treatment stretching 08/01/2011 None back pain Mechanism of injury unknown 08/01/2011 None diabetes mellitus Severity mild 08/01/2011 None diabetes mellitus Test results Pt checking blood glucose readings, did not bring results to clinic 08/01/2011 None diabetes mellitus Alleviating Factors medication 08/01/2011 None diabetes mellitus Alleviating Factors diet 08/01/2011 None diabetes mellitus Nutrition ADA diet 08/01/2011 None diabetes mellitus Exercise no exercise 08/01/2011 None diabetes mellitus Glucose monitoring daily 08/01/2011 None diabetes mellitus Blood glucose levels between 60 and 120 08/01/2011 None diabetes mellitus Quality chronic 06/20/2011 None diabetes mellitus Glucose monitoring daily 06/20/2011 None diabetes mellitus Test results Pt checking blood glucose readings, did not bring results to clinic 06/20/2011 None headache Exacerbating Factors activity 06/20/2011 None headache Triggers activity 06/20/2011 None nasal discharge Onset and Resolution ongoing 06/20/2011 None nasal discharge Severity mild 06/20/2011 None nasal discharge Pertinent Findings cough 06/20/2011 None nasal discharge Pertinent Findings ill contacts 06/20/2011 None nasal discharge Pertinent Findings Denies respiratory distress 06/20/2011 None earache Quality chronic 06/20/2011 None earache Severity moderate 06/20/2011 None earache Exacerbating Factors weather change 06/20/2011 None headache Limitation on Activities moderately limits activities 06/20/2011 due to dizziness headache Length of Episodes 4 days 06/20/2011 None headache Pertinent Findings Denies ataxia 06/20/2011 None headache Pertinent Findings Denies flushing 06/20/2011 None headache Pertinent Findings Denies hoarseness 06/20/2011 None headache Pertinent Findings Denies lethargic 06/20/2011 None earache Significant Medical Conditions otitis media in past 30 days 06/20/2011 None earache Significant Medical Conditions upper respiratory infection 06/20/2011 None postnasal drip Quality acute 06/20/2011 None postnasal drip Severity moderate 06/20/2011 None postnasal drip Significant Medical Conditions allergic rhinitis 06/20/2011 None postnasal drip Pertinent Findings cough 06/20/2011 None headache Location in the frontal area 06/20/2011 None nasal discharge Location in both nares 06/20/2011 None nasal discharge Quality clear 06/20/2011 None earache Location both ears 06/20/2011 None postnasal drip Onset of Symptom 3 days ago 06/20/2011 None diabetes mellitus Nutrition ADA diet 06/20/2011 None diabetes mellitus Exercise no exercise 06/20/2011 None diabetes mellitus Pertinent Findings Denies behavioral changes 06/20/2011 None diabetes mellitus Pertinent Findings Denies dizziness 06/20/2011 None diabetes mellitus Pertinent Findings Denies lethargy 06/20/2011 None diabetes mellitus Pertinent Findings Denies nausea 06/20/2011 None headache Quality acute 06/20/2011 None headache Onset and Resolution sudden in onset 06/20/2011 None sinusitis Onset and Resolution ongoing 04/18/2011 None sinusitis Pertinent Findings Denies facial pain 04/18/2011 None sinusitis Pertinent Findings Denies fatigue 04/18/2011 None sinusitis Pertinent Findings Denies headache 04/18/2011 None sinusitis Pertinent Findings Denies sinus pain 04/18/2011 None sinusitis Pertinent Findings Denies sinus pressure 04/18/2011 None sinusitis Quality acute 04/18/2011 None sinusitis Quality pain 04/18/2011 None sinusitis Quality pressure 04/18/2011 None sinusitis Severity moderate 04/18/2011 None chills Quality acute 04/18/2011 None chills Onset and Resolution sudden in onset 04/18/2011 None fever Quality acute None fever Onset and Resolution sudden in onset 04/18/2011 None diabetes mellitus Quality chronic 04/18/2011 None edema Location on both legs 04/18/2011 None edema Location on both ankles 04/18/2011 None edema Onset and Resolution gradual in onset 04/18/2011 x 2 weeks sinusitis Location in the bilateral frontal sinuses 04/18/2011 None sinusitis Location in the bilateral maxillary sinuses 04/18/2011 None sinusitis Onset and Resolution gradual in onset 04/18/2011 None Advance Directives No Advance Directive data Encounters Encounter Performer Location Codes Date 1) 90405 EST. PATIENT, LEVEL IV Diagnosis: Other hypotension[ICD10: I95.89] Diagnosis: Type 2 diabetes mellitus with hyperglycemia[ICD10: E11.65] Diagnosis: Acute recurrent pansinusitis[ICD10: J01.41] Diagnosis: Headache[ICD10: R51] Diagnosis: Slurred speech[ICD10: R47.81] Diagnosis: Repeated falls[ICD10: R29.6] Rika Motta MD, [facility] CPT-4: 61173 05/21/2018 ([id number]) 03339 EST. PATIENT, LEVEL IV Diagnosis: Essential (primary) hypertension[ICD10: I10] Diagnosis: Generalized anxiety disorder[ICD10: F41.1] Tessie Motta MD, [facility] CPT-4: 82234 05/16/2018 ([id number]) 53174 EST. PATIENT, LEVEL III Diagnosis: Cough[ICD10: R05] Diagnosis: Chronic maxillary sinusitis[ICD10: J32.0] Diagnosis: Type 2 diabetes mellitus with hyperglycemia[ICD10: E11.65] Rika Motta MD, [facility] CPT-4: 38838 04/27/2018 ([id number]) 27216 EST. PATIENT, LEVEL IV Diagnosis: Essential (primary) hypertension[ICD10: I10] Diagnosis: Type 2 diabetes mellitus with hyperglycemia[ICD10: E11.65] Diagnosis: Generalized anxiety disorder[ICD10: F41.1] Diagnosis: Weakness[ICD10: R53.1] Rika Motta MD, [facility] CPT-4: 60931 04/10/2018 ([id number]) 65690 EST. PATIENT, LEVEL IV Diagnosis: Type 2 diabetes mellitus with hyperglycemia[ICD10: E11.65] Diagnosis: Low back pain[ICD10: M54.5] Diagnosis: Essential (primary) hypertension[ICD10: I10] Diagnosis: Generalized anxiety disorder[ICD10: F41.1] Rika Motta MD, [facility] CPT-4: 47772 03/12/2018 ([id number]) 79699 EST. PATIENT, LEVEL III Diagnosis: Type 2 diabetes mellitus with hyperglycemia[ICD10: E11.65] Diagnosis: Essential (primary) hypertension[ICD10: I10] Diagnosis: Dysuria[ICD10: R30.0] Diagnosis: Vitamin D deficiency, unspecified[ICD10: E55.9] Diagnosis: Low back pain[ICD10: M54.5] Rika Motta MD, [facility] CPT-4: 38266 02/20/2018 ([id number]) 74172 EST. PATIENT, LEVEL III Diagnosis: Dysuria[ICD10: R30.0] Diagnosis: Essential (primary) hypertension[ICD10: I10] Rika Motta MD, [facility] CPT-4: 64399 11/27/2017 ([id number] 56691 EST. PATIENT, LEVEL III Diagnosis: Type 2 diabetes mellitus with hyperglycemia[ICD10: E11.65] Diagnosis: Chronic pain syndrome[ICD10: G89.4] Rika Motta MD, [facility] CPT-4: 35669 09/15/2017 ([id number]) 67454 EST. 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 PATIENT, LEVEL III Diagnosis: Chronic maxillary sinusitis[ICD10: J32.0] Diagnosis: Type 2 diabetes mellitus with hyperglycemia[ICD10: E11.65] Diagnosis: Hordeolum externum left upper eyelid[ICD10: H00.014] Rika Motta MD, [facility] CPT-4: 05743 08/03/2017 ([id number]) 45283 EST. PATIENT, LEVEL IV Diagnosis: Type 2 diabetes mellitus with hyperglycemia[ICD10: E11.65] Diagnosis: Hordeolum externum left upper eyelid[ICD10: H00.014] Diagnosis: Essential (primary) hypertension[ICD10: I10] Diagnosis: Chronic obstructive pulmonary disease, unspecified[ICD10: J44.9] Rika Motta MD, [facility] CPT-4: 61518 07/27/2017 ([id number]) 47552 EST. PATIENT, LEVEL IV Diagnosis: Type 2 diabetes mellitus with hyperglycemia[ICD10: E11.65] Diagnosis: Essential (primary) hypertension[ICD10: I10] Tessie Motta MD, [facility] CPT-4: 31314 06/13/2017 07540 EST. PATIENT, LEVEL IV Diagnosis: Periapical abscess without sinus[ICD10: K04.7] Arlette Motta MD, [facility] CPT-4: 69335 04/21/2017 ([id number]) 87533 EST. PATIENT, LEVEL IV Diagnosis: Type 2 diabetes mellitus with hyperglycemia[ICD10: E11.65] Diagnosis: Cellulitis of abdominal wall[ICD10: L03.311] Diagnosis: Chronic pain syndrome[ICD10: G89.4] Diagnosis: Essential (primary) hypertension[ICD10: I10] Diagnosis: Unsteadiness on feet[ICD10: R26.81] Rika Motta MD, [facility] CPT-4: 55031 04/18/2017 ([id number]) 04748 EST. PATIENT, LEVEL IV Diagnosis: Type 2 diabetes mellitus with hyperglycemia[ICD10: E11.65] Diagnosis: Hypokalemia[ICD10: E87.6] Diagnosis: Essential (primary) hypertension[ICD10: I10] Diagnosis: Paroxysmal atrial fibrillation[ICD10: I48.0] Rika Motta MD, [facility] CPT-4: 29195 03/27/2017 ([id number]) 34483 EST. PATIENT, LEVEL IV Diagnosis: Essential (primary) hypertension[ICD10: I10] Diagnosis: Type 2 diabetes mellitus with hyperglycemia[ICD10: E11.65] Diagnosis: Hypokalemia[ICD10: E87.6] Diagnosis: Generalized abdominal pain[ICD10: R10.84] Rika Motta MD, [facility] CPT-4: 51337 02/27/2017 ([id number]) 12629 EST. PATIENT, LEVEL III Diagnosis: Drug induced constipation[ICD10: K59.03] Rika Motta MD, [facility] CPT-4: 64411 02/21/2017 ([id number]) 50095 EST. PATIENT, LEVEL IV Diagnosis: Generalized abdominal pain[ICD10: R10.84] Diagnosis: Hypokalemia[ICD10: E87.6] Diagnosis: Hypomagnesemia[ICD10: E83.42] Rika Motta MD, [facility] CPT-4: 08174 02/17/2017 ([id number]) 68240 EST. PATIENT, LEVEL IV Diagnosis: Paroxysmal atrial fibrillation[ICD10: I48.0] Diagnosis: Essential (primary) hypertension[ICD10: I10] Diagnosis: Chronic obstructive pulmonary disease, unspecified[ICD10: J44.9] Diagnosis: Type 2 diabetes mellitus with hyperglycemia[ICD10: E11.65] Diagnosis: Diarrhea, unspecified[ICD10: R19.7] Rika Motta MD, [facility] CPT-4: 28284 02/13/2017 ([id number]) 18025 EST. PATIENT, LEVEL IV Diagnosis: Type 2 diabetes mellitus with hyperglycemia[ICD10: E11.65] Diagnosis: Pain in right shoulder[ICD10: M25.511] Diagnosis: Chronic maxillary sinusitis[ICD10: J32.0] Rika Motta MD, [facility] CPT-4: 33419 01/30/2017 ([id number]) 74002 EST. PATIENT, LEVEL IV Diagnosis: Essential (primary) hypertension[ICD10: I10] Diagnosis: Type 2 diabetes mellitus with hyperglycemia[ICD10: E11.65] Diagnosis: Hypothyroidism, unspecified[ICD10: E03.9] Diagnosis: Generalized anxiety disorder[ICD10: F41.1] Diagnosis: Chronic pain syndrome[ICD10: G89.4] Diagnosis: Restless legs syndrome[ICD10: G25.81] Diagnosis: Obstructive sleep apnea (adult) (pediatric)[ICD10: G47.33] Rika Motta MD, [facility] CPT-4: 75957 01/16/2017 53148 EST. PATIENT, LEVEL IV Diagnosis: Other acute sinusitis[ICD10: J01.80] Diagnosis: Diplopia[ICD10: H53.2] Arlette Motta MD, [facility] CPT-4: 27077 12/13/2016 ([id number]) 82468 EST. PATIENT, LEVEL IV Diagnosis: Essential (primary) hypertension[ICD10: I10] Diagnosis: Fasciculation[ICD10: R25.3] Diagnosis: Generalized anxiety disorder[ICD10: F41.1] Diagnosis: Other obesity due to excess calories[ICD10: E66.09] Diagnosis: Zoster without complications[ICD10: B02.9] Diagnosis: Unilateral primary osteoarthritis, right knee[ICD10: M17.11] Diagnosis: Unsteadiness on feet[ICD10: R26.81] Rika Motta MD, [facility] CPT-4: 45974 11/11/2016 ([id number]) 01022 EST. PATIENT, LEVEL IV Diagnosis: Zoster without complications[ICD10: B02.9] Diagnosis: Type 2 diabetes mellitus with hyperglycemia[ICD10: E11.65] Diagnosis: Vomiting, unspecified[ICD10: R11.10] Rika Motta MD, [facility] CPT-4: 05552 10/28/2016 ([id number]) 96483 EST. PATIENT, LEVEL III Diagnosis: Pain in right knee[ICD10: M25.561] Diagnosis: Zoster without complications[ICD10: B02.9] Rika Motta MD, [facility] CPT-4: 48306 10/13/2016 [id number]) 66641 EST. PATIENT, LEVEL IV Diagnosis: Acute recurrent maxillary sinusitis[ICD10: J01.01] Diagnosis: Low back pain[ICD10: M54.5] Diagnosis: Pain in right knee[ICD10: M25.561] Diagnosis: Allergic rhinitis due to pollen[ICD10: J30.1] Rika Motta MD, [facility] CPT-4: 67434 09/23/2016 ([id number]) 84633 EST. PATIENT, LEVEL IV Diagnosis: Pain in right shoulder[ICD10: M25.511] Diagnosis: Type 2 diabetes mellitus with hyperglycemia[ICD10: E11.65] Diagnosis: Cervicalgia[ICD10: M54.2] Diagnosis: Candidiasis of skin and nail[ICD10: B37.2] Diagnosis: Low back pain[ICD10: M54.5] Rika Motta MD, [facility] CPT-4: 66998 09/13/2016 14732) 71777 EST. 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 PATIENT, LEVEL IV Diagnosis: Type 2 diabetes mellitus with hyperglycemia[ICD10: E11.65] Diagnosis: Candidiasis of skin and nail[ICD10: B37.2] Diagnosis: Chronic obstructive pulmonary disease, unspecified[ICD10: J44.9] Diagnosis: Paroxysmal atrial fibrillation[ICD10: I48.0] Diagnosis: Pneumonia, unspecified organism[ICD10: J18.9] Rika Motta MD, [facility] CPT-4: 81579 07/26/2016 92341) 20119 EST. PATIENT, LEVEL IV Diagnosis: Type 2 diabetes mellitus with hyperglycemia[ICD10: E11.65] Diagnosis: Generalized anxiety disorder[ICD10: F41.1] Diagnosis: Essential (primary) hypertension[ICD10: I10] Diagnosis: Chronic pain syndrome[ICD10: G89.4] Rika Motta MD, [facility] CPT-4: 72157 05/24/2016 43574) 10796 EST. PATIENT, LEVEL IV Diagnosis: Menopausal and female climacteric states[ICD10: N95.1] Diagnosis: Type 2 diabetes mellitus with hyperglycemia[ICD10: E11.65] Diagnosis: Generalized anxiety disorder[ICD10: F41.1] Rika Motta MD, [facility] CPT-4: 71705 04/19/2016 [id number]) 80745 EST. PATIENT, LEVEL IV Diagnosis: Type 2 diabetes mellitus with hyperglycemia[ICD10: E11.65] Diagnosis: Generalized anxiety disorder[ICD10: F41.1] Diagnosis: Essential (primary) hypertension[ICD10: I10] Diagnosis: Dysuria[ICD10: R30.0] Rika Motta MD, [facility] CPT-4: 31283 04/11/2016 77006) 30660 EST. PATIENT, LEVEL IV Diagnosis: Generalized anxiety disorder[ICD10: F41.1] Diagnosis: Major depressive disorder, single episode, mild[ICD10: F32.0] Diagnosis: Hypothyroidism, unspecified[ICD10: E03.9] Diagnosis: Type 2 diabetes mellitus with hyperglycemia[ICD10: E11.65] Rika Motta MD, [facility] CPT-4: 38876 03/21/2016 18701) 47433 EST. PATIENT, LEVEL IV Diagnosis: Type 2 diabetes mellitus with hyperglycemia[ICD10: E11.65] Diagnosis: Cellulitis of right lower limb[ICD10: L03.115] Diagnosis: Other elevated white blood cell count[ICD10: D72.828] Diagnosis: Localized edema[ICD10: R60.0] Rika Motta MD, [facility] CPT-4: 37231 03/11/2016 92584) 64515 EST. PATIENT, LEVEL IV Diagnosis: Type 2 diabetes mellitus with hyperglycemia[ICD10: E11.65] Diagnosis: Localized edema[ICD10: R60.0] Diagnosis: Other conjunctivitis[ICD10: H10.89] Diagnosis: Obstructive sleep apnea (adult) (pediatric)[ICD10: G47.33] Diagnosis: Unspecified asthma, uncomplicated[ICD10: J45.909] Diagnosis: VAC STREP PNEUMONIAE-FLU[ICD10: Z23] Rika Motta MD, [facility] CPT-4: 39265 02/26/2016 81950) 44558 EST. PATIENT, LEVEL IV Diagnosis: Essential (primary) hypertension[ICD10: I10] Diagnosis: Paroxysmal atrial fibrillation[ICD10: I48.0] Diagnosis: Type 2 diabetes mellitus with hyperglycemia[ICD10: E11.65] Diagnosis: Obstructive sleep apnea (adult) (pediatric)[ICD10: G47.33] Diagnosis: Chronic obstructive pulmonary disease, unspecified[ICD10: J44.9] Rika Motta MD, [facility] CPT-4: 32368 02/02/2016 ([id number]) 14945 EST. 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 PATIENT, LEVEL IV Diagnosis: Type 2 diabetes mellitus with hyperglycemia[ICD10: E11.65] Diagnosis: Generalized anxiety disorder[ICD10: F41.1] Diagnosis: Essential (primary) hypertension[ICD10: I10] Diagnosis: Restless legs syndrome[ICD10: G25.81] Diagnosis: Dysuria[ICD10: R30.0] Rika Motta MD, [facility] CPT-4: 49806 11/27/2015 86559 EST. PATIENT, LEVEL IV Diagnosis: Addisonian crisis[ICD10: E27.2] [facility] CPT-4 : 79733 11/12/2015 03254 EST. PATIENT, LEVEL IV Diagnosis: Acute bronchitis due to other specified organisms[ICD10: J20.8] Diagnosis: Other acute sinusitis[ICD10: J01.80] Diagnosis: Other malaise[ICD10: R53.81] Diagnosis: Cough[ICD10: R05] Arlette Motta MD, [facility] CPT-4: 90251 11/10/2015 40915 EST. PATIENT, LEVEL IV Diagnosis: Pain in left knee[ICD10: M25.562] Diagnosis: Cellulitis of right toe[ICD10: L03.031] Arlette Motta MD, [facility] CPT-4: 39779 10/27/2015 ([id number]) 37186 EST. PATIENT, LEVEL IV Diagnosis: Essential (primary) hypertension[ICD10: I10] Diagnosis: Localized edema[ICD10: R60.0] Diagnosis: Type 2 diabetes mellitus with hyperglycemia[ICD10: E11.65] Rika Motta MD, [facility] CPT-4: 07636 09/22/2015 ([id number]) 94578 EST. PATIENT, LEVEL IV Diagnosis: Essential (primary) hypertension[ICD10: I10] Diagnosis: Type 2 diabetes mellitus with hyperglycemia[ICD10: E11.65] Diagnosis: Cellulitis of right toe[ICD10: L03.031] Rika Motta MD, [facility] CPT-4: 21581 09/01/2015 ([id number]) 31634 EST. PATIENT, LEVEL IV Diagnosis: Type 2 diabetes mellitus with hyperglycemia[ICD10: E11.65] Diagnosis: Essential (primary) hypertension[ICD10: I10] Diagnosis: Generalized anxiety disorder[ICD10: F41.1] Diagnosis: Hypothyroidism, unspecified[ICD10: E03.9] Diagnosis: Body mass index (BMI) 40.0-44.9, adult[ICD10: Z68.41] Rika Motta MD, [facility] CPT-4: 54780 08/10/2015 69568 EST. PATIENT, LEVEL IV Diagnosis: Acute bronchitis due to other specified organisms[ICD10: J20.8] Diagnosis: Pain in left knee[ICD10: M25.562] Diagnosis: Type 2 diabetes mellitus with hyperglycemia[ICD10: E11.65] Arlette Motta MD, [facility] CPT-4: 84901 06/26/2015 ([id number]) 37625 EST. PATIENT, LEVEL IV Diagnosis: Cellulitis of right lower limb[ICD10: L03.115] Diagnosis: Type 2 diabetes mellitus with hyperglycemia[ICD10: E11.65] Diagnosis: Essential (primary) hypertension[ICD10: I10] Diagnosis: Edema, unspecified[ICD10: R60.9] Rika Motta MD, [facility] CPT-4: 92803 04/14/2015 ([id number]) 61137 EST. PATIENT, LEVEL IV Diagnosis: Essential (primary) hypertension[ICD10: I10] Diagnosis: Type 2 diabetes mellitus with hyperglycemia[ICD10: E11.65] Diagnosis: Localized edema[ICD10: R60.0] Diagnosis: Dysuria[ICD10: R30.0] Rika Motta MD, [facility] CPT-4: 25474 03/03/2015 ([id number]) 53833 EST. PATIENT, LEVEL III Diagnosis: Blister of leg[ICD9: 916.2] Diagnosis: Rash[ICD9: 782.1] Diagnosis: EDEMA[ICD9: 782.3] Tessie Motta MD, [facility] CPT-4: 12537 01/15/2015 ([id number]) 36549 EST. PATIENT, LEVEL IV Diagnosis: Cellulitis, leg[ICD9: 682.6] Diagnosis: DIABETES TYPE II[ICD9: 250.00] Tessie Motta MD, [facility] CPT- 4: 76829 01/01/2015 ([id number]) Miscellaneous no charge Diagnosis: CVA (cerebral vascular accident)[ICD9: 434.91] Isabella Motta MD, [facility] CPT-4: 67784 12/25/2014 ([id number]) 02183 EST. PATIENT, LEVEL IV Diagnosis: ESSENTIAL HYPERTENSION[ICD9: 401.9] Diagnosis: DM W/O COMPLICATION TYPE II, UNCONTROLLED[ICD9: 250.02] Diagnosis: EDEMA[ICD9: 782.3] Diagnosis: Dysuria[ICD9: 788.1] Rika Motta MD, [facility] CPT-4: 02249 11/04/2014 ([id number]) 47538 EST. PATIENT, LEVEL IV Diagnosis: EDEMA[ICD9: 782.3] Diagnosis: Cellulitis of right leg[ICD9: 682.6] Diagnosis: Allergic rhinitis[ICD9: 477.9] Rika Motta MD, [facility] CPT-4: 21671 09/08/2014 ([id number]) 42164 EST. PATIENT, LEVEL IV Diagnosis: EDEMA[ICD9: 782.3] Diagnosis: ESSENTIAL HYPERTENSION[ICD9: 401.9] Diagnosis: DIABETES TYPE II[ICD9: 250.00] Diagnosis: Cellulitis of right leg[ICD9: 682.6] Rika Motta MD, [facility] CPT-4: 14143 08/29/2014 ([id number]) 26594 EST. PATIENT, LEVEL III Diagnosis: EDEMA[ICD9: 782.3] Diagnosis: DIABETES TYPE II[ICD9: 250.00] Tessie Motta MD, [facility] CPT- 4: 24528 06/30/2014 ([id number]) 20267 EST. PATIENT, LEVEL IV Diagnosis: EDEMA[ICD9: 782.3] Diagnosis: DM W/O COMPLICATION TYPE II, UNCONTROLLED[ICD9: 250.02] Diagnosis: Sciatica[ICD9: 724.3] Tessie Motta MD, [facility] CPT-4: 96139 06/12/2014 ([id number]) 95826 EST. PATIENT, LEVEL III Diagnosis: Cellulitis, leg[ICD9: 682.6] Diagnosis: EDEMA[ICD9: 782.3] Rika Motta MD, [facility] CPT-4: 13664 05/26/2014 ([id number]) 73317 EST. PATIENT, LEVEL IV Diagnosis: DIABETES TYPE II[ICD9: 250.00] Diagnosis: Chronic sinusitis[ICD9: 473.9] Tessie Motta MD, [facility] CPT- 4: 85655 04/15/2014 ([id number]) 26925 EST. PATIENT, LEVEL IV Diagnosis: DM W/O COMPLICATION TYPE II, UNCONTROLLED[ICD9: 250.02] Diagnosis: CHRONIC SINUSITIS[ICD9: 473.9] Diagnosis: EDEMA[ICD9: 782.3] Diagnosis: Right knee pain[ICD9: 719.46] Rika Motta MD, [facility] CPT-4: 32155 03/25/2014 ([id number]) 34605 EST. PATIENT, LEVEL IV Diagnosis: Blister of leg[ICD9: 916.2] Diagnosis: EDEMA[ICD9: 782.3] Diagnosis: DM W/O COMPLICATION TYPE II, UNCONTROLLED[ICD9: 250.02] Diagnosis: ESSENTIAL HYPERTENSION[ICD9: 401.9] Rika Motta MD, [facility] CPT-4: 65962 03/03/2014 ([id number]) 53585 EST. PATIENT, LEVEL IV Diagnosis: CELLULITIS OF LEG[ICD9: 682.6] Diagnosis: Diabetes mellitus type 2, uncontrolled[ICD9: 250.02] Diagnosis: ESSENTIAL HYPERTENSION[ICD9: 401.9] Diagnosis: EDEMA[ICD9: 782.3] Tessie Motta MD [facility] CPT-4: 10652 02/13/2014 ([id number]) 10565 EST. PATIENT, LEVEL IV Diagnosis: Diabetes mellitus type 2, uncontrolled[ICD9: 250.02] Tessie Motta MD [facility] CPT-4: 20027 01/27/2014 ([id number]) 18370 EST. PATIENT, LEVEL III Diagnosis: OPEN WND KNEE/LEG/ANKLE[ICD9: 891.0] Diagnosis: EDEMA[ICD9: 782.3] Rika Motta MD [facility] CPT-4: 14252 12/26/2013 ([id number]) 29782 EST. PATIENT, LEVEL III Diagnosis: Cellulitis of right leg[ICD9: 682.6] Diagnosis: OPEN WND KNEE/LEG/ANKLE[ICD9: 891.0] Rika Motta MD, [facility] CPT-4: 95153 12/12/2013 ([id number]) 30975 EST. PATIENT, LEVEL IV Diagnosis: Asthma exacerbation[ICD9: 493.92] Diagnosis: COUGH[ICD9: 786.2] Diagnosis: EDEMA[ICD9: 782.3] Rika Motta MD, [facility] CPT-4: 12966 11/14/2013 ([id number]) 41159 EST. PATIENT, LEVEL III Diagnosis: OPEN WND KNEE/LEG/ANKLE[ICD9: 891.0] Diagnosis: EDEMA[ICD9: 782.3] Rika Motta MD, [facility] CPT-4: 36421 10/21/2013 ([id number]) 36928 EST. PATIENT, LEVEL IV Diagnosis: ESSENTIAL HYPERTENSION[SNOMED: 16542872] Diagnosis: Right knee pain[ICD9: 719.46] Diagnosis: OPEN WND KNEE/LEG/ANKLE[ICD9: 891.0] Rika Motta MD, [facility] CPT-4: 05836 10/03/2013 ([id number]) Miscellaneous no charge Diagnosis: Open wound of leg[ICD9: 891.0] Rika Motta MD, [facility] CPT-4: 81382 09/27/2013 67978 EST. PATIENT, LEVEL II Diagnosis: Open wound of leg[ICD9: 891.0] Diagnosis: Wrist pain, left[ICD9: 719.43] Rika Motta MD, [facility] CPT-4: 93375 09/23/2013 ([id number]) 74963 EST. PATIENT, LEVEL IV Diagnosis: CELLULITIS OF LEG[ICD9: 682.6] Diagnosis: ESSENTIAL HYPERTENSION[SNOMED: 23664149] Diagnosis: EDEMA[ICD9: 782.3] Rika Motta MD, [facility] CPT-4: 19592 09/20/2013 ([id number]) 24477 EST. PATIENT, LEVEL IV Diagnosis: Open wound of right lower leg[ICD9: 891.0] Diagnosis: DM W/O COMPLICATION TYPE II, UNCONTROLLED[SNOMED: 20022020] Diagnosis: Edema[ICD9: 782.3] Rika Motta MD, [facility] CPT-4: 25085 09/10/2013 ([id number]) 61362 EST. PATIENT, LEVEL III Diagnosis: DM W/O COMPLICATION TYPE II, UNCONTROLLED[SNOMED: 46013999] Diagnosis: EDEMA[ICD9: 782.3] Tessie Motta MD, [facility] CPT-4: 62907 08/19/2013 ([id number]) 15725 EST. PATIENT, LEVEL IV Diagnosis: EDEMA[ICD9: 782.3] Diagnosis: DIABETES TYPE II[SNOMED: 897836034] Diagnosis: HYPOTHYROIDISM[ICD9: 244.9] Diagnosis: LUMBAGO[ICD9: 724.2] Diagnosis: SCIATICA[ICD9: 724.3] Tessie Motta MD, [facility] CPT-4: 47581 08/12/2013 ([id number]) 10885 EST. PATIENT, LEVEL IV Diagnosis: DIABETES TYPE II[SNOMED: 070298922] Diagnosis: EDEMA[ICD9: 782.3] Diagnosis: HYPOTHYROIDISM[ICD9: 244.9] Diagnosis: Encounter for long-term (current) use of other medications[ICD9: V58.69] Diagnosis: LUMBAGO[ICD9: 724.2] Rika Motta MD, [facility] CPT-4: 02346 08/01/2013 ([id number]) 44123 EST. PATIENT, LEVEL III Diagnosis: Blister of right foot[ICD9: 917.2] Rika Motta MD, [facility] CPT-4: 24283 07/19/2013 ([id number]) 60675 EST. PATIENT, LEVEL III Diagnosis: Cellulitis of right leg[ICD9: 682.6] Diagnosis: ESSENTIAL HYPERTENSION[SNOMED: 62510972] Diagnosis: EDEMA[ICD9: 782.3] Rika Motta MD, [facility] CPT-4: 02989 07/15/2013 ([id number]) 92280 EST. PATIENT, LEVEL IV Diagnosis: DIABETES TYPE II[SNOMED: 192673096] Diagnosis: BACKACHE[ICD9: 724.5] Diagnosis: Muscle spasms of neck[ICD9: 728.85] Tessie Motta MD, [facility] CPT-4: 38658 06/27/2013 ([id number]) 48427 EST. PATIENT, LEVEL IV Diagnosis: DM W/O COMPLICATION TYPE II, UNCONTROLLED[SNOMED: 79675076] Diagnosis: EDEMA[ICD9: 782.3] Diagnosis: OBESITY[ICD9: 278.00] Diagnosis: WHEEZING[ICD9: 786.07] Tessie Motta MD, [facility] CPT-4: 46113 06/10/2013 ([id number]) 97797 EST. PATIENT, LEVEL IV Diagnosis: CHRONIC SINUSITIS[ICD9: 473.9] Diagnosis: WHEEZING[ICD9: 786.07] Diagnosis: ACUTE BRONCHITIS[ICD9: 466.0] Diagnosis: Back pain[ICD9: 724.5] Tessie Motta MD, [facility] CPT-4: 55140 05/07/2013 ([id number]) 29508 EST. PATIENT, LEVEL IV Diagnosis: EDEMA[ICD9: 782.3] Diagnosis: COPD (chronic obstructive pulmonary disease) with acute bronchitis[ ICD9: 491.22] Tessie Motta MD, [facility] CPT-4: 99041 04/16/2013 ([id number]) 03982 EST. PATIENT, LEVEL IV Diagnosis: Lumbago[ICD9: 724.2] Diagnosis: DM W/O COMPLICATION TYPE II, UNCONTROLLED[SNOMED: 45420921] Diagnosis: EDEMA[ICD9: 782.3] Rika Motta MD, [facility] CPT-4: 36132 03/21/2013 ([id number]) 54811 EST. PATIENT, LEVEL IV Diagnosis: Abdominal pain[ICD9: 789.00] Diagnosis: EDEMA[ICD9: 782.3] Diagnosis: DIABETES TYPE II[SNOMED: 165406575] Tessie Motta MD, [facility] CPT-4: 53275 02/12/2013 ([id number]) 70358 EST. PATIENT, LEVEL III Diagnosis: EDEMA[ICD9: 782.3] Diagnosis: RESPIRATORY ABNORM NEC[ICD9: 786.09] Tessie Motta MD, [facility] CPT-4: 14810 02/04/2013 ([id number]) 69688 EST. PATIENT, LEVEL IV Diagnosis: Edema[ICD9: 782.3] Diagnosis: ESSENTIAL HYPERTENSION[SNOMED: 38982769] Tessie Motta MD, [facility] CPT-4: 18022 01/17/2013 ([id number]) 42135 EST. PATIENT, LEVEL IV Diagnosis: ESSENTIAL HYPERTENSION[SNOMED: 57250100] Diagnosis: Diabetic leg ulcer[ICD9: 250.80] Diagnosis: Callus[ICD9: 700] Diagnosis: Urinary urgency[ICD9: 788.63] Diagnosis: HYPOTHYROIDISM[ICD9: 244.9] Rika Motta MD, [facility] CPT-4: 90697 12/31/2012 ([id number]) 15172 EST. PATIENT, LEVEL IV Diagnosis: Cellulitis of left leg[ICD9: 682.6] Diagnosis: DIABETES TYPE II[SNOMED: 286858368] Diagnosis: ESSENTIAL HYPERTENSION[SNOMED: 88016705] Diagnosis: EDEMA[ICD9: 782.3] Rika Motta MD, [facility] CPT-4: 52102 12/20/2012 ([id number]) 14287 EST. PATIENT, LEVEL III Diagnosis: Acute bronchitis[ICD9: 466.0] Diagnosis: COUGH[ICD9: 786.2] Tessie Motta MD [facility] CPT-4: 46123 10/29/2012 ([id number]) 45585 EST. PATIENT, LEVEL IV Diagnosis: ESSENTIAL HYPERTENSION[SNOMED: 74303218] Diagnosis: DIABETES TYPE II[SNOMED: 802866635] Diagnosis: HYPOTHYROIDISM[ICD9: 244.9] Tessie Motta MD [facility] CPT- 4: 43608 09/06/2012 ([id number]) 82011 EST. PATIENT, LEVEL IV Diagnosis: DIABETES TYPE II[SNOMED: 805657190] Diagnosis: ESSENTIAL HYPERTENSION[SNOMED: 26095364] Diagnosis: Diarrhea[ICD9: 787.91] Tessie Motta MD [facility] CPT-4: 66823 08/23/2012 ([id number]) 38781 EST. PATIENT, LEVEL III Diagnosis: ESSENTIAL HYPERTENSION[SNOMED: 54546787] Diagnosis: Gastroenteritis[ICD9: 558.9] Rika Mtota MD [facility] CPT-4: 95763 08/13/2012 ([id number]) 41524 EST. PATIENT, LEVEL IV Diagnosis: Diarrhea[ICD9: 787.91] Diagnosis: ESSENTIAL HYPERTENSION[SNOMED: 07639980] Diagnosis: DM W/O COMPLICATION TYPE II, UNCONTROLLED[SNOMED: 14951137] Rika Motta MD [facility] CPT-4: 87401 08/07/2012 ([id number]) 81712 EST. PATIENT, LEVEL III Diagnosis: Acute sinusitis[ICD9: 461.9] Diagnosis: Thrush[ICD9: 112.0] Rika Motta MD [facility] CPT-4: 22428 07/06/2012 ([id number]) 90316 EST. PATIENT, LEVEL IV Diagnosis: ESSENTIAL HYPERTENSION[SNOMED: 33629910] Diagnosis: DIABETES TYPE II[SNOMED: 412061619] Tessie Motta MD [facility] CPT-4: 48243 06/07/2012 ([id number]) 99845 EST. PATIENT, LEVEL IV Diagnosis: ESSENTIAL HYPERTENSION[SNOMED: 61256043] Diagnosis: ACUTE SINUSITIS[ICD9: 461.9] Diagnosis: Labial cyst[ICD9: 624.8] Tessie Motta MD [facility] CPT-4: 14804 05/28/2012 ([id number]) 43169 EST. PATIENT, LEVEL IV Diagnosis: ESSENTIAL HYPERTENSION[SNOMED: 95227779] Diagnosis: EDEMA[ICD9: 782.3] Tessie Motta MD [facility] CPT-4: 13709 05/17/2012 ([id number]) 71328 EST. PATIENT, LEVEL IV Diagnosis: EDEMA[ICD9: 782.3] Diagnosis: ESSENTIAL HYPERTENSION[SNOMED: 20150125] Diagnosis: Diarrhea[ICD9: 787.91] Diagnosis: ALLERGIC RHINITIS[ICD9: 477.9] Tessie Motta MD [facility] CPT- 4: 42262 05/02/2012 ([id number]) 34522 EST. PATIENT, LEVEL IV Diagnosis: ACUTE SINUSITIS[ICD9: 461.9] Diagnosis: ESSENTIAL HYPERTENSION[SNOMED: 94920086] Diagnosis: ALLERGIC RHINITIS[ICD9: 477.9] Tessie Motta MD [facility] CPT- 4: 03743 04/10/2012 ([id number]) 42459 EST. PATIENT, LEVEL IV Diagnosis: ESSENTIAL HYPERTENSION[SNOMED: 62813250] Diagnosis: Foreign body in foot or toe[ICD9: 917.6] Diagnosis: EDEMA[ICD9: 782.3] Tessie Motta MD [facility] CPT-4: 63280 02/27/2012 ([id number]) 62033 EST. PATIENT, LEVEL IV Diagnosis: CELLULITIS OF FOOT[ICD9: 682.7] Diagnosis: DIABETES TYPE II[SNOMED: 121741969] Diagnosis: EDEMA[ICD9: 782.3] Tessie Motta MD [facility] CPT-4: 43954 02/15/2012 ([id number]) 32266 EST. PATIENT, LEVEL IV Diagnosis: EDEMA[ICD9: 782.3] Diagnosis: ESSENTIAL HYPERTENSION[SNOMED: 59364736] Diagnosis: ACUTE SINUSITIS[ICD9: 461.9] Diagnosis: Dysuria[ICD9: 788.1] Tessie Motta MD [facility] CPT-4: 35701 02/01/2012 ([id number]) 13859 EST. PATIENT, LEVEL IV Diagnosis: DIABETES TYPE II[SNOMED: 830163400] Diagnosis: Diverticulitis[ICD9: 562.11] BENNETT Altman MD CPT- 4: 21146 12/14/2011 ([id number]) 54715 EST. PATIENT, LEVEL IV Diagnosis: Nausea vomiting and diarrhea[ICD9: 787.01] Diagnosis: ESSENTIAL HYPERTENSION[SNOMED: 48606626] Diagnosis: DM W/O COMPLICATION TYPE II, UNCONTROLLED[SNOMED: 61166905] Tessie Motta MD [facility] CPT-4: 53428 11/30/2011 ([id number]) 10967 EST. PATIENT, LEVEL IV Diagnosis: ESSENTIAL HYPERTENSION[SNOMED: 24328772] Diagnosis: DIABETES TYPE II[SNOMED: 735207613] Diagnosis: COUGH[ICD9: 786.2] Tessie Motta MD [facility] CPT-4: 55355 11/17/2011 ([id number]) Patient admitted to the hospital from clinic (NO CHARGE) Diagnosis: Tachycardia[ICD9: 785.0] Diagnosis: Dyspnea[ICD9: 786.09] Diagnosis: Wheezing[ICD9: 786.07] Diagnosis: FALL AGAINST OBJECT[ICD9: E888.1] Diagnosis: ANXIETY STATE[ICD9: 300.00] Diagnosis: ESSENTIAL HYPERTENSION[SNOMED: 52668178] Diagnosis: Chronic depression[ICD9: 311] Diagnosis: Diabetes mellitus type 2, uncontrolled[SNOMED: 94825527] Tessie Motta MD, [facility] CPT-4: 24551J 11/03/2011 ([id number]) 06686 EST. PATIENT, LEVEL IV Diagnosis: DIABETES TYPE II[SNOMED: 110966388] Diagnosis: ANXIETY STATE[ICD9: 300.00] Diagnosis: DEPRESSIVE DISORDER NEC[ICD9: 311] Diagnosis: Ulcer of toe[ICD9: 707.15] Tessie Motta MD [facility] CPT- 4: 21914 10/24/2011 ([id number]) 26829 EST. PATIENT, LEVEL IV Diagnosis: EDEMA[ICD9: 782.3] Diagnosis: ESSENTIAL HYPERTENSION[SNOMED: 83838524] Diagnosis: ANXIETY STATE[ICD9: 300.00] Tessie Motta MD [facility] CPT- 4: 90477 09/26/2011 [id number] EST. PATIENT, LEVEL IV Diagnosis: EDEMA[ICD9: 782.3] Diagnosis: ESSENTIAL HYPERTENSION[SNOMED: 84580835] Rika Motta MD [facility] CPT-4: 94078 09/20/2011 ([id number]) 26766 EST. PATIENT, LEVEL IV Diagnosis: ACUTE SINUSITIS[ICD9: 461.9] Diagnosis: Allergic rhinitis[ICD9: 477.9] Diagnosis: Cough[ICD9: 786.2] Tessie Motta MD [facility] CPT-4: 46881 09/01/2011 ([id number]) 85907 EST. PATIENT, LEVEL IV Diagnosis: Chronic sinusitis[ICD9: 473.9] Diagnosis: Anxiety, generalized[ICD9: 300.02] Tessie Motta MD, [facility] CPT-4: 92612 08/15/2011 [id number] EST. PATIENT, LEVEL IV Diagnosis: ACUTE SINUSITIS[ICD9: 461.9] Diagnosis: Tachycardia[ICD9: 785.0] Diagnosis: Anxiety[ICD9: 300.00] Diagnosis: Dehydration[ICD9: 276.51] Diagnosis: Sciatica[ICD9: 724.3] Tessie Motta MD [facility] CPT-4: 52706 08/09/2011 71679 EST. PATIENT, LEVEL IV Diagnosis: DIABETES TYPE II[SNOMED: 575687262] Diagnosis: Sciatica[ICD9: 724.3] Diagnosis: Yeast infection[ICD9: 112.9] Tessie Motta MD [facility] CPT- 4: 01661 08/01/2011 ([id number]) 27507 EST. PATIENT, LEVEL IV Diagnosis: DIABETES TYPE II[SNOMED: 844793136] Diagnosis: ACUTE MAXILLARY SINUSITIS[ICD9: 461.0] Diagnosis: Fibromyalgia[ICD9: 729.1] Tessie Motta MD, [facility] CPT-4: 35242 06/20/2011 84857 EST. PATIENT, LEVEL IV Diagnosis: ESSENTIAL HYPERTENSION[SNOMED: 63860708] Diagnosis: DIABETES TYPE II[SNOMED: 291241499] Diagnosis: ACUTE MAXILLARY SINUSITIS[ICD9: 461.0] Tessie Motta MD, [facility] CPT-4: 00072 04/18/2011 Plan of Care Planned Activity Notes Codes Status Date Visit Plan: Headache-slurred speech -frequent falls and hit head this morning -will obtain STAT CT head to evaluate for acute abnormalities Hypotension-dehydration -patient sent for outpatient IVF DM-blood sugar 73 mg/dl today in the office-monitor closely Pansinusitis-rx for cefdinir and flagyl sent to patient's pharmacy and instructed on use Repeated falls- patient is unable to care for herself -discussed with patient and her son, Ellis , that she is unable to care for herself and needs assisted living -Ellis is in contact with [facility] -recommend she stay at [facility]'s [facility] until she can move into [facility]. 05/21/2018 Appointment: Rika Bello WPtel: [facility]0 [phone] (15 min) Moderate 05/21/2018 Patient Education: Patient Medication Summary Completed 05/21/2018 Visit Plan: Hypertension - well controlled - continue with current medications, continue with no added salt diet. Pt has been encouraged to exercise daily. The pt has been advised to call the office if there are any acute concerns about change in blood pressure readings at home. Chronic Atrial fibrillation - rate controlled - no change in current medication. Anxiety and Depression - no change in current management - refilled medication today - discussed the need for the patient to consider assisted living facility due to her inability to care for herself. She was also advised that she should NOT drive, she has not driven in 5 months and she would not be safe behind the wheel of a car. Her cousins were with her at [facility] today and they all agreed that she should not be driving and that she needs to be in assisted living. 05/16/2018 App[facility]ment: [phone] (15 min) Moderate 05/16/2018 Patient Education: Patient Medication Summary Completed 05/16/2018 Visit Plan: Chronic sinus infections -congestion -will order CT sinuses for further evaluation -continue anti histamine and nasal saline rinses as directed DM-IPRO results discussed today in the office-patient has appt with Dr Raines on Monday -blood sugars are extremely uncontrolled - discussed diet/medication compliance with patient today in the office- instructed her to take her insulin as prescribed -monitor blood sugars and record and take to her appt with Dr Raines for adjustment of insulin -patient and verbalized understanding. 04/27/2018 Appointment: Rika Bello WPtel: [phone] [phone] [place] (30 min) Complex 04/27/2018 Patient Education: Patient Medication Summary Completed 04/27/2018 Appointment: Rika Bello WPtel: [phone] [phone] [place] (15 min) Moderate 04/24/2018 Appointment: Nurse Visit 04/17/2018 Visit Plan: Hypertension - well controlled - continue with current medications, continue with no added salt diet. Pt has been encouraged to exercise daily. The pt has been advised to call the office if there are any acute concerns about change in blood pressure readings at home. DM-very uncontrolled and patient does not check blood sugars as directed-IPRO placed today in attempt to get a better picture of blood sugars -will also fax Dr Raines a copy of results -patient instructed to monitor blood sugars-keep food log and return Monday for removal of IPRO Xizicqv-xhxjrmlzkl-ko changes in medications-recommend counseling-patient refuses Weakness-patient is deconditioned-refuses PT -recommend patient start walking more 04/10/2018 Appointment: Rika Bello WPtel: [phone] [phone] [place] (15 min) Moderate 04/10/2018 Patient Education: Patient Medication Summary Completed 04/10/2018 Appointment: Arlette Skelton WPtel: [phone] [facility] [place] (15 min) Moderate 03/21/2018 Appointment: Rika Bello WPtel: [phone] [facility] [place] [address] (30 min) Complex 03/20/2018 Visit Plan: Hypertension - well controlled - continue with current medications, continue with no added salt diet. Pt has been encouraged to exercise daily. The pt has been advised to call the office if there are any acute concerns about change in blood pressure readings at home. DM-patient is seeing Dr Raines and noncompliant with treatment-i have discussed Dr Raines' s treatment plan with Mirtha again today in the office. Low back pain- again recommend PT -patient continues to refuse -discussed the importance of physical activity and that using a wheelchair will not help her maintain mobility and strength Anxiety-chronic -plan to decrease xanax to twice daily and taper off as directed 03/12/2018 Appointment: Rika Bello WPtel: [facility]5 [facility] [place] [address] (15 min) Moderate 03/12/2018 Patient Education: Patient Medication Summary Completed 03/12/2018 Patient Education: Back Pain Completed 03/12/2018 Appointment: Rika Bello WPtel: [phone] [facility] [place] [address] (30 min) Complex 03/08/2018 Appointment: Lab Draw 02/22/2018 Patient Education: Patient Medication Summary Completed 02/22/2018 Visit Plan: Hypertension - well controlled - continue with current medications, continue with no added salt diet. Pt has been encouraged to exercise daily. The pt has been advised to call the office if there are any acute concerns about change in blood pressure readings at home. DM-patient is seeing Dr Raines and noncompliant with treatment-i have discussed Dr Raines' s treatment plan with Mirtha today -recommend they discuss short actin insulins with the pharmacy and Dr Raines in attempt to find one that is affordable for them. Patient and her both verbalized understanding. Dysuria- UA positive- will culture urine Low back pain- recommend patient schedule appt with pain specialist for injections -also recommend PT but patient is not willing Anxiety-chronic -plan to decrease xanax to twice daily as needed #60 with next refill 02/20/2018 Appointment: Rika Bello WPtel: [phone] [phone] (15 min) Moderate 02/20/2018 Patient Education: Patient Medication Summary Completed 02/20/2018 Patient Education: Back Pain Completed 02/20/2018 Patient Education: Patient Medication Summary Completed 02/20/2018 Care Plan: Iron Pending 02/20/2018 Appointment: Rika Bello WPtel: [phone] [phone] [place] (30 min) Complex 02/19/2018 Appointment: Rika Bello WPtel: [phone] [phone] [place] (15 min) Moderate 02/01/2018 Visit Plan: UA negative -no culture indicated 12/14/2017 Appointment: Lab Draw 12/14/2017 Patient Education: Patient Medication Summary Completed 12/14/2017 Visit Plan: Dysuria-urinary incontinence-culture urine HTN- elevated today-monitor at home -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 We have also discussed mental health and the signs/symptoms of depression. The patient was advised of home safety evaluations and the need to make sure that as the aging process continues, we need to be aware of different ways to make the home a safer place to reside. The patient has also been counseled that exercise is necessary - and of utmost importance as we age to help decrease fall risk and to maintain independence in the home. Today we discussed the need for the patient to create paperwork for Advanced directives as well as for the patient to provide this office with a copy of her DOPA paperwork for health care surrogate. 10/27/2017 Visit Plan: Medicare Exam - today we discussed the patients past history, immunizations, preventative exams/evaluations - colonoscopy, fecal occult blood testing, routine labs for renal function, glucose, cholesterol, osteoporosis evaluations, cardiovascular testing and cancer screenings. We have also discussed mental health and the signs/symptoms of depression. The patient was advised of home safety evaluations and the need to make sure that as the aging process continues, we need to be aware of different ways to make the home a safer place to reside. The patient has also been counseled that exercise is necessary - and of utmost importance as we age to help decrease fall risk and to maintain independence in the home. Today we discussed the need for the patient to create paperwork for Advanced directives as well as for the patient to provide this office with a copy of her DOPA paperwork for health care surrogate. 10/27/2017 Patient Education: Patient Medication Summary Completed 10/27/2017 Care Plan: [facility] [address] Pending 10/27/2017 Appointment: Arlette Skelton WPtel: [phone] [phone] (15 min) Moderate 10/03/2017 Appointment: [facility]el[phone] [facility] [place] (15 min) Moderate 10/02/2017 Appointment: Rika Bello [facility]Ptel: [phone] [phone] [place] (30 min) Complex 09/29/2017 Visit Plan: Continuous glucose monitor placed - pt tolerated procedure well - pt verbalizes understanding of plan for finger stick and food logs, pt verbalizes understand use/need for monitor and when to return for removal. Diabetes Mellitus - I have recommended for the patient to have follow up labs prior to the next office visit. The patient has been instructed to continue with current medications as previously directed, continue with regular FSBS monitoring to assure continued control of diabetes. Pt to call for any acute concerns, complaints, or if the blood glucose readings are starting to become less controlled. I have recommended for the patient to follow more strictly to the diabetic diet as discussed in clinic to allow for greater blood glucose control. Head trauma, headache - pt is on anticoagulant medications - will order head ct and treat as indicated - pt is to notify clinic or go to ER if her symptoms become acutely worsened. 09/27/2017 Appointment: Arlette Skelton [facility]Ptel: [phone] [facility] (30 min) Complex 09/27/2017 Patient Education: Patient Medication Summary Completed 09/27/2017 Care Plan: CT HEAD/BRAIN W/O DYE [facility] : [address]-7 Pending 09/27/2017 Visit Plan: DM-patient noncompliant with diet-recommend she start checking her blood sugars more frequently-discussed diet -recommend eating every 3-4 hours with protein at each meal. Patient and verbalized understanding Chronic Pain Syndrome - pt has chronic pain - has been maintained on current medications, has not sought out other medications, only uses PRN pain medications as directed, and understands the consequences of over- medication. 09/15/2017 Appointment: Rika Bello WPtel: [phone] (30 min) Complex 09/15/2017 Patient Education: Patient Medication Summary Completed 09/15/2017 Appointment: Rika Bello WPtel: [phone] (30 min) Complex 09/12/2017 Appointment: Rika Bello WPtel: [phone] (30 min) Complex 09/07/2017 Visit Plan: Uoe-iotyqfcaev-ph changes Anemia-check cbc today Dental infection-on clindamycin per Dr Bryant-start probiotics Also needs to monitor blood sugars closely 08/18/2017 Appointment: Rika Bello WPtel: [phone] (30 min) Complex 08/18/2017 Patient Education: Patient Medication Summary Completed 08/18/2017 Visit Plan: Chronic sinusitis-rx for gentamicin nasal spray that dru compounds Diabetes Mellitus -patient forgot bs log- I have recommended for the patient to have follow up labs prior to the next office visit. The patient has been instructed to continue with current medications as previously directed, continue with regular FSBS monitoring to assure continued control of diabetes. Pt to call for any acute concerns, complaints, or if the blood glucose readings are starting to become less controlled. I have recommended for the patient to follow more strictly to the diabetic diet as discussed in clinic to allow for greater blood glucose control. Hordeolum -much improved-continue abx drops until symptoms resolved-return to clinic if symptoms do not resolve 08/03/2017 Appointment: Rika Bello WPtel: [phone] [phone] (30 min) [facility] 08/03/2017 Patient Education: Patient Medication Summary Completed 08/03/2017 Visit Plan: Hypertension - well controlled - continue with current medications, continue with no added salt diet. Pt has been encouraged to exercise daily. The pt has been advised to call the office if there are any acute concerns about change in blood pressure readings at home. Diabetes Mellitus - I have recommended for the patient to have follow up labs prior to the next office visit. The patient has been instructed to continue with current medications as previously directed, continue with regular FSBS monitoring to assure continued control of diabetes. Pt to call for any acute concerns, complaints, or if the blood glucose readings are starting to become less controlled. Stye-left upper eyelid-rx sent to patient's pharmacy-follow up in the office in 1 week, sooner if symptoms worsen ADDENDUM: COPD - chronic problem for this patient- patient continues to wear oxygen at 3L per nasal cannula and benefits from therapy. We have reviewed chronic treatment strategy, symptom control, and plans for acute exacerbations. No changes today to the current treatment plan as the patient is stable, monitor for acute changes. 07/27/2017 Visit Plan: Hypertension - well controlled - continue with current medications, continue with no added salt diet. Pt has been encouraged to exercise daily. The pt has been advised to call the office if there are any acute concerns about change in blood pressure readings at home. Diabetes Mellitus - I have recommended for the patient to have follow up labs prior to the next office visit. The patient has been instructed to continue with current medications as previously directed, continue with regular FSBS monitoring to assure continued control of diabetes. Pt to call for any acute concerns, complaints, or if the blood glucose readings are starting to become less controlled. Stye-left upper eyelid-rx sent to patient's pharmacy-follow up in the office in 1 week, sooner if symptoms worsen 07/27/2017 Appointment: Rika Bello WPtel: [phone] [phone] (30 min) Complex 07/27/2017 Patient Education: Patient Medication Summary Completed 07/27/2017 Appointment: Lab Draw 06/30/2017 Patient Education: Patient Medication Summary Completed 06/30/2017 Visit Plan: Diabetes Mellitus - Uncontrolled - per recent FSBS reports. I have recommended for the patient to have follow up labs prior to the next office visit. The patient has been instructed to continue with current medications as previously directed, continue with regular FSBS monitoring to assure continued control of diabetes. Pt to call for any acute concerns, complaints, or if the blood glucose readings are starting to become less controlled. I have recommended for the patient to follow more strictly to the diabetic diet as discussed in clinic to allow for greater blood glucose control. check labs - hgba1c - will change lantus if needed based on Hgba1c - pt has been advised that she needs to...RESCHEDULE APPT WITH DR RAINES HTN- controlled-no change in medications 06/13/2017 Appointment: Tessie Motta [facility]Ptel: [phone] [facility] (15 min) Moderate 06/13/2017 Patient Education: Patient Medication Summary Completed 06/13/2017 Visit Plan: Dental abscess - will send RX - pt is to keep her appointment with her dentist - pt is to notify clinic if symptoms do not improve, if they worsen, or with any other acute changes, questions, or concerns. 04/21/2017 Appointment: Arlette Skelton WPtel: [phone] [facility] (30 min) Complex 04/21/2017 Patient Education: Patient Medication Summary Completed 04/21/2017 Patient Education: Obesity Completed 04/21/2017 Visit Plan: Diabetes Mellitus - Uncontrolled - per recent FSBS reports. I have recommended for the patient to have follow up labs prior to the next office visit. The patient has been instructed to continue with current medications as previously directed, continue with regular FSBS monitoring to assure continued control of diabetes. Pt to call for any acute concerns, complaints, or if the blood glucose readings are starting to become less controlled. I have recommended for the patient to follow more strictly to the diabetic diet as discussed in clinic to allow for greater blood glucose control. INCREASE LANTUS TO 20 UNITS Q AM AND 50 UNITS Q HS RESCHEDULE APPT WITH DR YANNA HoEnycusvqj-vwbuslqom-eu for bactroban ointment provided and instructed on use SPT-ckeltkabup-gb change in medications Mildly elevated liver enzymes-discussed with Dr motta-suspect due to gabapentin-will monitor levels Gait instability-again recommend patient use walker as well as PT 04/18/2017 Appointment: Rika Bello WPtel: [phone] (30 min) Complex 04/18/2017 Patient Education: Patient Medication Summary Completed 04/18/2017 Visit Plan: Diabetes Mellitus - ucontrolled- I have recommended for the patient to have follow up labs prior to the next office visit. The patient has been instructed to continue with current medications as previously directed, continue with regular FSBS monitoring to assure continued control of diabetes. Pt to call for any acute concerns, complaints, or if the blood glucose readings are starting to become less controlled. Low potassium- check labs SQA-pubielrjwv-ky changes Afib-check digoxin level with labs Abdominal pain-refill levsin for prn use -call if pain uncontrolled 03/27/2017 Visit Plan: Diabetes Mellitus - ucontrolled- I have recommended for the patient to have follow up labs prior to the next office visit. The patient has been instructed to continue with current medications as previously directed, continue with regular FSBS monitoring to assure continued control of diabetes. Pt to call for any acute concerns, complaints, or if the blood glucose readings are starting to become less controlled. Low potassium- check labs ENT-ghjsahcqpf-ew changes Afib-check digoxin level with labs Abdominal pain-refill levsin for prn use -call if pain uncontrolled 03/27/2017 Appointment: Rika Bello WPtel: [address] [place], [place] [phone] [place] (30 min) Complex 03/27/2017 Patient Education: Patient Medication Summary Completed 03/27/2017 Appointment: Rika Bello WPtel: [address] [place], [place] [phone] [place] (30 min) Complex 03/24/2017 Visit Plan: Hypertension - well controlled - continue with current medications, continue with no added salt diet. Pt has been encouraged to exercise daily. The pt has been advised to call the office if there are any acute concerns about change in blood pressure readings at home. DM-uncontrolled- discussed strict diet and exercise with patient Low uvdiaculp-xvabauah-tguedooe to monitor Abd ospz-gveggahn-ky changes 02/27/2017 Appointment: Rika Bello WPtel: [facility] [place] [address] (30 min) Complex 02/27/2017 Patient Education: Patient Medication Summary Completed 02/27/2017 Patient Education: Hypertension Completed 02/27/2017 Patient Education: Patient Medication Summary Completed 02/24/2017 Visit Plan: Constipation - uncontrolled - I have discussed with the patient the need for adequate fiber and water intake to facilitate soft , easily passed stools. The pt noted understanding of our conversation. I have given the patient a recipe for "power pudding" - equal parts, bran flakes, prune juice, and apple sauce. The pt is to call if symptoms not improved on this regimen. 02/21/2017 Appointment: Rika Bello WPtel: [phone] (30 min) Complex 02/21/2017 Patient Education: Patient Medication Summary Completed 02/21/2017 Appointment: Rika Bello WPtel: [address] [place], [place] [phone] (30 min) Complex 02/20/2017 Visit Plan: Generalized abdominal pain-discussed with Dr Motta-CT negative in ER last night-patient is non compliant with diet/ medications/recommendation-will send RX for levsin to use as needed-will replace electrolytes-discussed diet/fluid intake-instructed patient to go to ER over the weekend if symptoms do not improve or if worsen. Patient and verbalized understanding of plan. Low potassium and magnesium-rx sent to patient 's pharmacy-repeat labs on Monday02/17/2017 Appointment: Rika Bello WPtel: [phone] [place] (30 min) Complex 02/17/2017 Patient Education: Patient Medication Summary Completed 02/17/2017 Visit Plan: COPD-recent hospitalization with pneumonia- symptoms improved-discussed continuous oxygen use at home-appt with Dr Odonnell tomorrow Afib-check digoxin level-patient just finished zpack Diarrhea-continue probiotics-check stool if diarrhea persists DM-bring log to next appt 02/13/2017 Appointment: Rika Bello WPtel: [address] [place], [place] [phone] (30 min) Complex 02/13/2017 Patient Education: Patient Medication Summary Completed 02/13/2017 Patient Education: Hypertension Completed 02/13/2017 Visit Plan: DM-very uncontrolled-refer to Dr Raines for management RIght shoulder and arm pain-fell 5 days ago-xray shoulder and arm Chronic sinusitis-RX for Dr Cervantes's compound gentamicin nasal spray 01/30/2017 Appointment: Rika Bello WPtel: [address] [place], [place] [phone] (30 min) Complex 01/30/2017 Patient Education: Patient Medication Summary Completed 01/30/2017 Care Plan: Referral Order SNOMED-CT : [id number] Pending 01/30/2017 Visit Plan: Hypertension - well controlled - continue with current medications, continue with no added salt diet. Pt has been encouraged to exercise daily. The pt has been advised to call the office if there are any acute concerns about change in blood pressure readings at home. Sleep apnea- needs new CPAP supplies and needs to start wearing CPAP every night DM-check Hgb A1C Hypothyroidism-check level Ekwdhbj-lydmvyxyyr-ejr well controlled- increase cymbalta-recommend counseling 01/16/2017 Appointment: Rika Bello WPtel: [phone] [place] (30 min) Complex 01/16/2017 Patient Education: Patient Medication Summary Completed 01/16/2017 Appointment: Rika Bello WPtel: [phone] (30 min) Complex 01/10/2017 Visit Plan: Sinusitis - Pt has acute infection - pain in face, maxillary region, Pt informed to use decongestant, RX given to patient, sinus rinses also recommended. Call if symptoms do not show improvement. Left lateral gaze impairment, diplopia - discussed with Dr. Motta - she is to make an appointment with her eye doctor ANA LAURA, and up date me of her symptoms tomorrow. Pt is to notify clinic of go to the ER with any acute changes, questions or concerns. 12/13/2016 Appointment: [phone] ([facility] min[facility] 12/13/2016 Patient Education: Patient Medication Summary Completed 12/13/2016 Appointment: Lab Draw 11/25/2016 Patient Education: Patient Medication Summary Completed 11/25/2016 Visit Plan: Hypertension - well controlled - continue with current medications, continue with no added salt diet. Pt has been encouraged to exercise daily. The pt has been advised to call the office if there are any acute concerns about change in blood pressure readings at home. Involuntary movements-schedule MRI brain Chronic Depression and anxiety - the pt has symptoms of chronic anxiety and depression that have been fairly well controlled since the last office visit. The pt has expected periods of exacerbation with abatement of the symptoms with change in situational exposure. No change in current medications. Obesity - chronic issue with this patient. The pt has been counseled about diet changes, calorie restriction, and need to exercise. Pt will RTC in one month for weight check. Shingles-lesions scabbed but not healed-rx for bactroban ointment provided and instructed on use- need to see rash if it does not completely heal. ADDENDUM: RX written for walker with seat due to patient's worsening OA right knee, gait instability, COPD and increased risk of falls 11/11/2016 Visit Plan: Hypertension - well controlled - continue with current medications, continue with no added salt diet. Pt has been encouraged to exercise daily. The pt has been advised to call the office if there are any acute concerns about change in blood pressure readings at home. Involuntary movements-schedule MRI brain Chronic Depression and anxiety - the pt has symptoms of chronic anxiety and depression that have been fairly well controlled since the last office visit. The pt has expected periods of exacerbation with abatement of the symptoms with change in situational exposure. No change in current medications. Obesity - chronic issue with this patient. The pt has been counseled about diet changes, calorie restriction, and need to exercise. Pt will RTC in one month for weight check. Shingles-lesions scabbed but not healed-rx for bactroban ointment provided and instructed on use- need to see rash if it does not completely heal. 11/11/2016 Appointment: Rika Bello WPtel: [phone] (30 min) Complex 11/11/2016 Patient Education: Patient Medication Summary Completed 11/11/2016 Care Plan: BMI Above normal followup SELF-MGMT EDUC & TRAIN 1 PT Pending 2016 Appointment: Rika Bello WPtel: [address] [place], [place] [phone] (30 min) Complex 11/08/2016 Visit Plan: Shingles-rash scabbed-no further treatment indicated-patient to call if pain uncontrolled N/V-check labs including UA DM- check labs today Thrush-RX for nystatin 10/28/2016 Appointment: Rika Bello WPtel: [phone] [place] (30 min) Complex 10/28/2016 Patient Education: Patient Medication Summary Completed 10/28/2016 Patient Education: Obesity Completed 10/28/2016 Appointment: Rika Bello WPtel: [address] [place], [place] [phone] [place] (30 min) Complex 10/25/2016 Appointment: Lab Draw 10/21/2016 Patient Education: Patient Medication Summary Completed 10/21/2016 Visit Plan: Right knee pain-patient to schedule appt with Dr Allison Garcia-right arm-concerned for shingles-RX for acyclovir provided and instructed on use-call if symptoms do not resolve or if any worse. 10/13/2016 Appointment: Rika Bello WPtel: [phone] (30 min) Complex 10/13/2016 Patient Education: Patient Medication Summary Completed 10/13/2016 Appointment: Rika Bello WPtel: [address] [place], [place] [phone] [place] [address] (30 min) Complex 10/11/2016 Appointment: Rika Bello WPtel: [address] [place], [place] [phone] [facility] - Annual Wellness Visit 10/04/2016 Visit Plan: Sinusitis - Pt has acute infection - pain in face, maxillary region, Pt informed to use decongestant, RX given to patient, sinus rinses also recommended. Call if symptoms do not show improvement. Allergies - chronic - recommended pt to use allergy medication as prescribed. Pt has been counseled as to the appropriate use of the medication. Pt to call if allergy symptoms are not controlled with the medication. If using nasal spray , instructions as follows: Nasal spray- use twice daily, one spray per nostril twice daily, after 30 minutes, rinse out nose with saline spray.. Use opposite hand per nostril to spray in the nasal steroid allergy spray. Low back pain- increased since fall 5/3-xray lumbar spine Right knee pain/swelling-fell 5/3- xray knee-recommend patient use walker at all times Pain uncontrolled-change to percocet as directed. 09/23/2016 Appointment: Rika Bello WPtel: [address] [place], [place] [phone] (15 min) Moderate 09/23/2016 Patient Education: Patient Medication Summary Completed 09/23/2016 Visit Plan: Hypertension - elevated today-monitor at home- continue with current medications, continue with no added salt diet. Pt has been encouraged to exercise daily. The pt has been advised to call the office if there are any acute concerns about change in blood pressure readings at home. Diabetes Mellitus - I have recommended for the patient to have follow up labs prior to the next office visit. The patient has been instructed to continue with current medications as previously directed, continue with regular FSBS monitoring to assure continued control of diabetes. Pt to call for any acute concerns, complaints, or if the blood glucose readings are starting to become less controlled. Neck pain-right shoulder pain-xrays today Chronic low back pain-refer to Dr Shelley for possible injections Rash-under breasts- refill nystatin 09/13/2016 Patient Education: Patient Medication Summary Completed 09/13/2016 Patient Education: Obesity Completed 09/13/2016 Patient Education: .Cervicalgia Neck Pain Completed 09/13/2016 Care Plan: Referral Order SNOMED-CT : [id number] Pending 09/13/2016 Appointment: Rika Bello WPtel: [phone] [phone] (30 min) Complex 09/09/2016 Appointment: Rika Bello WPtel: [phone] [phone] (30 min) Complex 09/08/2016 Visit Plan: Hypertension - well controlled - continue with current medications, continue with no added salt diet. Pt has been encouraged to exercise daily. The pt has been advised to call the office if there are any acute concerns about change in blood pressure readings at home. Yeast infection -improved-continue nystatin powder Hypothyroidism-check labs Anemia-check CBC 08/09/2016 Appointment: [phone] (30 min) Complex 08/09/2016 Patient Education: Patient Medication Summary Completed 08/09/2016 Patient Education: Hypertension Completed 08/09/2016 Visit Plan: Diabetes Mellitus - Uncontrolled - per recent FSBS reports. I have recommended for the patient to have follow up labs prior to the next office visit. The patient has been instructed to continue with current medications as previously directed, continue with regular FSBS monitoring to assure continued control of diabetes. Pt to call for any acute concerns, complaints, or if the blood glucose readings are starting to become less controlled. I have recommended for the patient to follow more strictly to the diabetic diet as discussed in clinic to allow for greater blood glucose control. Yeast infection -rx for nystatin powder NCKJ-wutbcazmr-hjlwys pneumonia -afib-patient is oxygen dependent due to severely compromised pulmonary and cardiac systems-will send orders to [facility] to continue oxygen 07/26/2016 Visit Plan: Diabetes Mellitus - Uncontrolled - per recent FSBS reports. I have recommended for the patient to have follow up labs prior to the next office visit. The patient has been instructed to continue with current medications as previously directed, continue with regular FSBS monitoring to assure continued control of diabetes. Pt to call for any acute concerns, complaints, or if the blood glucose readings are starting to become less controlled. I have recommended for the patient to follow more strictly to the diabetic diet as discussed in clinic to allow for greater blood glucose control. Yeast infection -rx for nystatin powder QKOM-kvyauehxm-jairlp pneumonia -afib-patient is oxygen dependent due to severely compromised pulmonary and cardiac systems-will send orders to [facility] to continue oxygen 07/26/2016 Visit Plan: Diabetes Mellitus - Uncontrolled - per recent FSBS reports. I have recommended for the patient to have follow up labs prior to the next office visit. The patient has been instructed to continue with current medications as previously directed, continue with regular FSBS monitoring to assure continued control of diabetes. Pt to call for any acute concerns, complaints, or if the blood glucose readings are starting to become less controlled. I have recommended for the patient to follow more strictly to the diabetic diet as discussed in clinic to allow for greater blood glucose control. Yeast infection -rx for nystatin powder CLLN-uhzmxirrt-quuykf pneumonia -afib-patient is oxygen dependent due to severely compromised pulmonary and cardiac systems-will send orders to [facility] to continue oxygen 07/26/2016 Appointment: [phone] [place] (30 min) Complex 07/26/2016 Patient Education: Patient Medication Summary Completed 07/26/2016 Appointment: [facility]el[phone] [place] (30 min) Complex 07/22/2016 Appointment: [facility]el[phone] [place] (30 min) Complex 07/18/2016 Appointment: [facility]ello [facility]Ptel[phone] [phone] [place] (30 min) Complex 07/01/2016 Appointment: Lab Draw 06/24/2016 Patient Education: Patient Medication Summary Completed 06/24/2016 Appointment: [facility]Ptel[phone] [phone] (30 min) Complex 2016 Visit Plan: Diabetes Mellitus - Uncontrolled - per recent FSBS reports. I have recommended for the patient to have follow up labs prior to the next office visit. The patient has been instructed to continue with current medications as previously directed, continue with regular FSBS monitoring to assure continued control of diabetes. Pt to call for any acute concerns, complaints, or if the blood glucose readings are starting to become less controlled. I have recommended for the patient to follow more strictly to the diabetic diet as discussed in clinic to allow for greater blood glucose control. Chronic Depression and anxiety - the pt has symptoms of chronic anxiety and depression that have been fairly well controlled since the last office visit. The pt has expected periods of exacerbation with abatement of the symptoms with change in situational exposure. No change in current medications. Chronic Pain Syndrome - pt has chronic pain - has been maintained on current medications, has not sought out other medications, only uses PRN pain medications as directed, and understands the consequences of over-medication. 05/24/2016 Patient Education: Patient Medication Summary Completed 05/24/2016 Patient Education: Obesity Completed 05/24/2016 Appointment: [facility]el[phone] (30 min) Complex 05/17/2016 Visit Plan: Vaginal dryness-poor hygiene-recommend patient start cleaning better-discussed proper hygiene and instructed patient to let me know if symptoms persist or do not resolve Diabetes Mellitus - Uncontrolled - per recent FSBS reports. I have recommended for the patient to have follow up labs prior to the next office visit. The patient has been instructed to continue with current medications as previously directed, continue with regular FSBS monitoring to assure continued control of diabetes. Pt to call for any acute concerns, complaints, or if the blood glucose readings are starting to become less controlled. I have recommended for the patient to follow more strictly to the diabetic diet as discussed in clinic to allow for greater blood glucose control. 04/19/2016 Appointment: [facility]ello [facility]Ptel[phone] (30 min) Complex 04/19/2016 Patient Education: Patient Medication Summary Completed 04/19/2016 Patient Education: Obesity Completed 04/19/2016 Appointment: Rika Bello WPtel: [phone] [id number] [place] [address] (30 min) Complex 04/18/2016 Visit Plan: Diabetes Mellitus - Uncontrolled - per recent FSBS reports. I have recommended for the patient to have follow up labs prior to the next office visit. The patient has been instructed to continue with current medications as previously directed, continue with regular FSBS monitoring to assure continued control of diabetes. Pt to call for any acute concerns, complaints, or if the blood glucose readings are starting to become less controlled. I have recommended for the patient to follow more strictly to the diabetic diet as discussed in clinic to allow for greater blood glucose control. KPW-pznlaijguz-qd changes in medications at this time. Dysuria-UA negative-needs pelvic exam due to pt c/o vaginal discharge 04/11/2016 Appointment: Rika Bello WPtel: [phone] [id number] [place] [address] (30 min) Complex 04/11/2016 Patient Education: Patient Medication Summary Completed 04/11/2016 Patient Education: Obesity Completed 04/11/2016 Appointment: Rika Bello WPtel: [phone] [id number] [place] [address] (30 min) Complex 04/08/2016 Visit Plan: Chronic Depression and anxiety - the pt has symptoms of chronic anxiety and depression that have been fairly well controlled since the last office visit. The pt has expected periods of exacerbation with abatement of the symptoms with change in situational exposure. No change in current medications. PATIENT STOPPED EFFEXOR-DR LR RECOMMEND SWITCHING TO NON QT PROLONGING AGENT-RX FOR CYMBALTA 60MG DAILY PROVIDED AND INSTRUCTED ON USE. Hypothyroidism - pt with chronic hypothyroidism , continue with current medication, will monitor pt to signs or symptoms of lack of adequate supplementation. Pt is to continue with current dose of medication unless directed otherwise. Check labs at regular intervals wither q 3 months or q 6 months based on previous levels of control. Diabetes Mellitus - Uncontrolled - per recent FSBS reports. I have recommended for the patient to have follow up labs prior to the next office visit. The patient has been instructed to continue with current medications as previously directed, continue with regular FSBS monitoring to assure continued control of diabetes. Pt to call for any acute concerns, complaints, or if the blood glucose readings are starting to become less controlled. I have recommended for the patient to follow more strictly to the diabetic diet as discussed in clinic to allow for greater blood glucose control. 03/21/2016 Patient Education: Patient Medication Summary Completed 03/21/2016 Patient Education: Obesity Completed 03/21/2016 Visit Plan: Diabetes Mellitus - Uncontrolled - per recent FSBS reports. I have recommended for the patient to have follow up labs prior to the next office visit. The patient has been instructed to continue with current medications as previously directed, continue with regular FSBS monitoring to assure continued control of diabetes. Pt to call for any acute concerns, complaints, or if the blood glucose readings are starting to become less controlled. I have recommended for the patient to follow more strictly to the diabetic diet as discussed in clinic to allow for greater blood glucose control. Cellulitis-right leg-start abx-call if symptoms do not resolve or if any worse Edema - pt has been advised to elevate legs to prevent dependent edema , compression has been recommended to help to naturally decrease peripheral edema. Diuretic use has been discussed and pt has been instructed in appropriate use of such medication as necessary to further attempt to reduce peripheral edema. 03/11/2016 Appointment: Rika Bello WPtel: [address] [place], [place] [phone] (30 min) [facility] 03/11/2016 Patient Education: Patient Medication Summary Completed 03/11/2016 Patient Education: Obesity Completed 03/11/2016 Care Plan: Comp Metabolic Cancelled 03/11/2016 Care Plan: Cbc With Differential Cancelled 03/11/2016 Visit Plan: Diabetes Mellitus - Uncontrolled - per recent FSBS reports. I have recommended for the patient to have follow up labs prior to the next office visit. The patient has been instructed to continue with current medications as previously directed, continue with regular FSBS monitoring to assure continued control of diabetes. Pt to call for any acute concerns, complaints, or if the blood glucose readings are starting to become less controlled. I have recommended for the patient to follow more strictly to the diabetic diet as discussed in clinic to allow for greater blood glucose control. Edema - pt has been advised to elevate legs to prevent dependent edema , compression has been recommended to help to naturally decrease peripheral edema. Diuretic use has been discussed and pt has been instructed in appropriate use of such medication as necessary to further attempt to reduce peripheral edema. Conjunctivitis-RX sent to patient's pharmacy and instructed on use Obstructive sleep apnea-pt continues to use CPAP for treatment-patient reports improved sleep and daytime fatigue with use of machine Asthma-continue with nebulizer treatments with brovana BID, pulmicort BID prn shortness of breath and duoneb QID prn shortness of breath 02/26/2016 Visit Plan: Diabetes Mellitus - Uncontrolled - per recent FSBS reports. I have recommended for the patient to have follow up labs prior to the next office visit. The patient has been instructed to continue with current medications as previously directed, continue with regular FSBS monitoring to assure continued control of diabetes. Pt to call for any acute concerns, complaints, or if the blood glucose readings are starting to become less controlled. I have recommended for the patient to follow more strictly to the diabetic diet as discussed in clinic to allow for greater blood glucose control. Edema - pt has been advised to elevate legs to prevent dependent edema , compression has been recommended to help to naturally decrease peripheral edema. Diuretic use has been discussed and pt has been instructed in appropriate use of such medication as necessary to further attempt to reduce peripheral edema. Conjunctivitis-RX sent to patient's pharmacy and instructed on use Obstructive sleep apnea-pt continues to use CPAP for treatment-patient reports improved sleep and daytime fatigue with use of machine Asthma-continue with nebulizer treatments with brovana BID, pulmicort BID prn shortness of breath and duoneb QID prn shortness of breath 02/26/2016 Visit Plan: Diabetes Mellitus - Uncontrolled - per recent FSBS reports. I have recommended for the patient to have follow up labs prior to the next office visit. The patient has been instructed to continue with current medications as previously directed, continue with regular FSBS monitoring to assure continued control of diabetes. Pt to call for any acute concerns, complaints, or if the blood glucose readings are starting to become less controlled. I have recommended for the patient to follow more strictly to the diabetic diet as discussed in clinic to allow for greater blood glucose control. Edema - pt has been advised to elevate legs to prevent dependent edema , compression has been recommended to help to naturally decrease peripheral edema. Diuretic use has been discussed and pt has been instructed in appropriate use of such medication as necessary to further attempt to reduce peripheral edema. Conjunctivitis-RX sent to patient's pharmacy and instructed on use 02/26/2016 Appointment: Rika Bello WPtel: [phone] [phone] [place] (30 min) Complex 02/26/2016 Patient Education: Patient Medication Summary Completed 02/26/2016 Appointment: Rika Bello WPtel: [phone] [phone] [place] (30 min) Complex 02/25/2016 Appointment: Rika Bello WPtel: [phone] [phone] [place] (30 min) Complex 02/23/2016 Appointment: Lab Draw 02/10/2016 Patient Education: Patient Medication Summary Completed 02/10/2016 Visit Plan: Hypertension - well controlled - continue with current medications, continue with no added salt diet. Pt has been encouraged to exercise daily. The pt has been advised to call the office if there are any acute concerns about change in blood pressure readings at home. Afib-managed by Dr Dyer-appt to see Dr Lr for ablation Sleep apnea-needs new cpap due to mold-will write for new machine DM-not checking blood sugars-new glucometer provided COPD-on oxygen-needs new nebulizer and supplies due to mold 02/02/2016 Appointment: Rika Bello WPtel: [phone] [phone] [place] (30 min) Complex 02/02/2016 Patient Education: Patient Medication Summary Completed 02/02/2016 [facility]ment[phone] [place] (15 min) Moderate 01/21/2016 Appointment: Rika Bello WPtel: [phone] [place] (30 min) Complex 01/14/2016 Visit Plan: Hypertension - well controlled - continue with current medications, continue with no added salt diet. Pt has been encouraged to exercise daily. The pt has been advised to call the office if there are any acute concerns about change in blood pressure readings at home. Adrenal insufficiency-patient is back on steroid taper and doing better-will continue to monitor as i expect her headaches to improve with treatment 12/17/2015 Patient Education: Patient Medication Summary Completed 12/17/2015 Visit Plan: Dnypmxi-oepmpwdyd-gyhl head injury on 12/05-did not go to ER-patient sent for STAT CT scan of head-schedule appt with Dr Dyer Adrenal insufficiency-patient suddenly stopped prednisone-instructed patient to restart and taper prednisone as directed Rib jxgx-elaxx-ocinme fall-xray ribs 12/08/2015 Appointment: [phone] [place] (15 min) Moderate 12/08/2015 Appointment: [phone] [place] (30 min) Complex 12/08/2015 Patient Education: Patient Medication Summary Completed 12/08/2015 Care Plan: COMPLETE CBC AUTOMATED LOINC : 37902-1 Pending 12/08/2015 Visit Plan: Hypertension - well controlled - continue with current medications, continue with no added salt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 next office visit. The patient has been instructed to continue with current medications as previously directed, continue with regular FSBS monitoring to assure continued control of diabetes. Pt to call for any acute concerns, complaints, or if the blood glucose readings are starting to become less controlled. I have recommended for the patient to follow more strictly to the diabetic diet as discussed in clinic to allow for greater blood glucose control. Chronic sinusitis-recommend nasal spray as directed-RX for levaquin x 21 days Edema - pt has been advised to elevate legs to prevent dependent edema, compression has been recommended to help to naturally decrease peripheral edema. Diuretic use has been discussed and pt has been instructed in appropriate use of such medication as necessary to further attempt to reduce peripheral edema. RECOMMEND PATINET TO HAVE LABS TODAY Right knee pain-recent fall-xray right knee 03/25/2014 Appointment: Follow up 03/25/2014 Patient Education: Patient Medication Summary Completed 03/25/2014 Appointment: Follow up 03/21/2014 Appointment: Follow up 03/17/2014 Visit Plan: Blister of right leg-drained today in the office using sterile technique and #27g needle-pressure dressing applied to facilitate drainage of any additional fluid Edema - pt has been advised to elevate legs to prevent dependent edema, compression has been recommended to help to naturally decrease peripheral edema. Diuretic use has been discussed and pt has been instructed in appropriate use of such medication as necessary to further attempt to reduce peripheral edema. AGAIN, DISCUSSED LOW SODIUM DIET WITH MONAE-SHE CONTINUES TO DRINK POP, EAT CANNED FOODS, AND DINE OUT FREQUENTLY, IF NOT DAILY. AGAIN, RECOMMEND SHE CUT OUT POP COMPLETELY AND START READING FOODS LABELS. DISCUSSED HIGH SODIUM FOODS SUCH CANNED FOODS, FROZEN DINNERS, LUNCH MEAT, FAST FOODS, ETC. PATIENT VERBALIZED UNDERSTANDING. Diabetes Mellitus - controlled - per recent FSBS reports. I have recommended for the patient to have follow up labs prior to the next office visit. The patient has been instructed to continue with current medications as previously directed, continue with regular FSBS monitoring to assure continued control of diabetes. Pt to call for any acute concerns, complaints, or if the blood glucose readings are starting to become less controlled. Hypertension - well controlled - continue with current medications, continue with no added salt diet. Pt has been encouraged to exercise daily. The pt has been advised to call the office if there are any acute concerns about change in blood pressure readings at home. I HAVE AGAIN ADVISED MONAE NOT TO LET HER PILLS RUN OUT-SHE WAS OUT OF HER METOPROLOL FOR SEVERAL DAYS AND JUST RESTARTED YESTERDAY-HER SWELLING IS WORSE AND HER HEART RATE IS ELEVATED DUE TO NOT TAKING HER MEDICATIONS PRESCRIBED. I GAVE MONAE ANOTHER ORDER FOR BLOOD WORK-SHE WAS GIVEN AN ORDER AT HER LAST APPOINTMENT BUT STATES HER , JOSE, LOST IT. INSTRUCTED HER TO GET BLOOD WORK IN THE MORNING AND WE WILL CALL HER WITH THE RESULTS. 03/03/2014 Appointment: Follow up 03/03/2014 Patient Education: Patient Medication Summary Completed 03/03/2014 Patient Education: Hypertension Completed 03/03/2014 Visit Plan: Cellulitis - continue with oral antibiotics as previously directed, return to clinic as previously directed, call for acute change in symptoms, worsening redness, warmth, discharge. Diabetes Mellitus - INSTRUCTED PATIENT TO KEEP LOG AND BRING IN 2 WEEKS FOR REVIEW. I have recommended for the patient to have follow up labs prior to the next office visit. The patient has been instructed to continue with current medications as previously directed, continue with regular FSBS monitoring to assure continued control of diabetes. Pt to call for any acute concerns, complaints, or if the blood glucose readings are starting to become less controlled. I have recommended for the patient to follow more strictly to the diabetic diet as discussed in clinic to allow for greater blood glucose control. Edema -PATIENT IS NON COMPLIANT WITH DIETARY RESTRICTIONS AND DOES NOT TAKE MEDICATIONS PRESCRIBED-AGAIN, I HAVE RECOMMENDED THAT SHE CUT BACK ON SODIUM AND TAKE THE MEDICATIONS EXACTLY PRESCRIBED. pt has been advised to elevate legs to prevent dependent edema, compression has been recommended to help to naturally decrease peripheral edema. Diuretic use has been discussed and pt has been instructed in appropriate use of such medication as necessary to further attempt to reduce peripheral edema. Hypertension - well controlled - continue with current medications, continue with no added salt diet. Pt has been encouraged to exercise daily. The pt has been advised to call the office if there are any acute concerns about change in blood pressure readings at home. 02/13/2014 Appointment: Tess[facility]ta [facility]el[phone] Follow up 02/13/2014 Patient Education: Patient Medication Summary Completed 02/13/2014 Patient Education: Hypertension Completed 02/13/2014 Visit Plan: Diabetes Mellitus - Uncontrolled - per recent FSBS reports. I have recommended for the patient to have follow up labs prior to the next office visit. The patient has been instructed to continue with current medications as previously directed, continue with regular FSBS monitoring to assure continued control of diabetes. Pt to call for any acute concerns, complaints, or if the blood glucose readings are starting to become less controlled. I have recommended for the patient to follow more strictly to the diabetic diet as discussed in clinic to allow for greater blood glucose control. pt to start on LEVEMIR 5 units at bedtime, increase by 3 units every 3 days with a goal of a average blood glucose level of 170. Pt is not to increase her LEVEMIR above 20 units. Monae is to have an appt with a FSBS report in 2 weeks. Increase victoza to 1.8 units daily. 01/27/2014 Appointment: Tessie Motta WPtel: [phone] [id number] Follow up 01/27/2014 Patient Education: Patient Medication Summary Completed 01/27/2014 Appointment: Rika Bello WPtel: [id number] Follow up 01/02/2014 Visit Plan: Open wound of [id number] with dressing changes as directed-call for increase redness, drainage, warmth, etc. Follow up as instructed Edema - pt has been advised to elevate legs to prevent dependent edema, compression has been recommended to help to naturally decrease peripheral edema. Diuretic use has been discussed and pt has been instructed in appropriate use of such medication as necessary to further attempt to reduce peripheral edema. 12/26/2013 Appointment: Follow up 12/26/2013 Patient Education: Patient Medication Summary Completed 12/26/2013 Appointment: Tessie Motta WPtel: [facility] Follow up 12/24/2013 Visit Plan: Open wound of right leg-debrided today in the office-instructed on wound care-follow up as directed. Call with any questions, concerns, or worsening symptoms. Culture of wound today in the office-RX for abx sent to patient's pharmacy and instructed on use. Patient verbalized understanding of plan. 12/12/2013 Appointment: Rika Bello WPtel: [phone] Other 12/12/2013 Patient Education: Patient Medication Summary Completed 12/12/2013 Appointment: Tessie Motta WPtel: [address] [place], [place] [id number] Follow up 11/20/2013 Visit Plan: negative ua 11/18/2013 Appointment: Tessie Motta WPtel: [address] [place], [place] [id number] Lab Draw 11/18/2013 Patient Education: Patient Medication Summary Completed 11/18/2013 Visit Plan: Asthma Exacerbation - Asthma is a chronic problem for this patient, however, the pt is experiencing an acute exacerbation of the chronic Asthma symptoms. Pt is to receive appropriate treatment as an out patient, but the pt is aware that if symptoms worsen or do not improve, to call [facility] for instructions, or go to the EMERGENCY ROOM if the symptoms are beyond acute control with rescue medications. We have reviewed chronic treatment strategy, symptom control, and plans for acute exacerbations. No changes today to the current treatment plan as the patient is stable, monitor for acute changes. Edema - pt has been advised to elevate legs to prevent dependent edema, compression has been recommended to help to naturally decrease peripheral edema. Diuretic use has been discussed and pt has been instructed in appropriate use of such medication as necessary to further attempt to reduce peripheral edema. 11/14/2013 Appointment: Sick 11/14/2013 Patient Education: Patient Medication Summary Completed 11/14/2013 Visit Plan: Open wound right [id number] if opens up Edema - pt has been advised to elevate legs to prevent dependent edema, compression has been recommended to help to naturally decrease peripheral edema. Diuretic use has been discussed and pt has been instructed in appropriate use of such medication as necessary to further attempt to reduce peripheral edema. 10/21/2013 Appointment: Rika Bello WPtel: [address] [place] [address] Follow up 10/21/2013 Patient Education: Patient Medication Summary Completed 10/21/2013 Appointment: Rika Bello WPtel: [address] [place], [place] [id number] Follow up 10/17/2013 Appointment: Tessie Motta WPtel: [address] [place], [place] [phone] Follow up 10/10/2013 Visit Plan: Hypertension - well controlled - continue with current medications, continue with no added salt diet. Pt has been encouraged to exercise daily. The pt has been advised to call the office if there are any acute concerns about change in blood pressure readings at home. Open wound of right leg-continue dressing changes as directed. Follow up in 2 weeks, or sooner if needed. Right knee pain-increase hydrocodone to 7.5mg/325mg every 6 hours as needed for pain. 10/03/2013 Appointment: Rika Bello WPtel: [phone] Follow up 10/03/2013 Patient Education: Patient Medication Summary Completed 10/03/2013 Patient Education: Hypertension Completed 10/03/2013 Visit Plan: Open wound of right leg-debrided today in the office-instructed on wound care-follow up as directed. Call with any questions, concerns, or worsening symptoms. Patient verbalized understanding of plan. 09/27/2013 Patient Education: Patient Medication Summary Completed 09/27/2013 Visit Plan: Left wrist pain-recent fall-xray left wrist Open wound of right leg-debrided today in the office-instructed on wound care- follow up as directed. Call with any questions, concerns, or worsening symptoms. Patient verbalized understanding of plan. 09/23/2013 Appointment: Tess[facility] Motta [facility]Ptel[phone] [facility] Nurse Visit 09/23/2013 Patient Education: Patient Medication Summary Completed 09/23/2013 Visit Plan: Open wound of leg-debrided and cleaned wound today in the office and instructed patient on wound care-needs to keep clean at all time-return Monday for quick look at her leg. If redness persists, will start on abx. Patient verbalized understanding of plan. Hypertension - uncontrolled - The patient has been counseled to cut back on salt in diet for a no added salt diet, low fat diet, start an exercise program with low weight bearing exercises and higher aerobic activity for heart health. The patient is to check blood pressure readings as an outpatient and either fax, call, or email the readings to the office next week for practicioner to review. The pt is to call for acute concerns. RX WRITTEN FOR 8 DAYS OF CARTIA XT AND INSTRUCTED HER TO RESTART IT PREVIOSLY DIRECTED AND NOT TO STOP WITHOUT NOTIFIYING US. Edema - pt has been advised to elevate legs to prevent dependent edema, compression has been recommended to help to naturally decrease peripheral edema. Diuretic use has been discussed and pt has been instructed in appropriate use of such medication as necessary to further attempt to reduce peripheral edema. AGAIN INSTRUCTED PATIENT TO CUT OUT SALTY FOODS AND DRINKS. REPEAT LABS IN 2 WEEKS. 09/20/2013 Appointment: [phone] Follow up 09/20/2013 Patient Education: Patient Medication Summary Completed 09/20/2013 Patient Education: Hypertension Completed 09/20/2013 Appointment: Tessie Motta WPtel: [facility] Follow up 09/16/2013 Visit Plan: Edema - pt has been advised to elevate legs to prevent dependent edema, compression has been recommended to help to naturally decrease peripheral edema. Diuretic use has been discussed and pt has been instructed in appropriate use of such medication as necessary to further attempt to reduce peripheral edema. Wound of leg-culture today in the office- instructed on wound care and follow up in 10 days, sooner if needed. DM-blood sugars uncontrolled-discussed with patient the need to strictly adhere to the diabetic diet. Instructed her to bring in her blood sugar logs to her next appointment for review. Patient verbalized understanding. 09/10/2013 Appointment: Rika Bello WPtel: [facility] Other 09/10/2013 Patient Education: Patient Medication Summary Completed 09/10/2013 Appointment: Rika Bello WPtel: [address] [place], [place] [phone] [place] [address] Follow up 09/02/2013 Visit Plan: Diabetes Mellitus - Uncontrolled - per recent FSBS reports. I have recommended for the patient to have follow up labs prior to the next office visit. The patient has been instructed to continue with current medications as previously directed, continue with regular FSBS monitoring to assure continued control of diabetes. Pt to call for any acute concerns, complaints, or if the blood glucose readings are starting to become less controlled. I have recommended for the patient to follow more strictly to the diabetic diet as discussed in clinic to allow for greater blood glucose control. START VICTOZA O.6MG DAILY X 2 WEEKS THEN INCREASE TO 1.2MG DAILY. Edema - pt has been advised to elevate legs to prevent dependent edema, compression has been recommended to help to naturally decrease peripheral edema. Diuretic use has been discussed and pt has been instructed in appropriate use of such medication as necessary to further attempt to reduce peripheral edema. 08/19/2013 Appointment: Rika Bello WPtel: [phone] Other 08/19/2013 Patient Education: Patient Medication Summary Completed 08/19/2013 Visit Plan: Edema - pt has been advised to elevate legs to prevent dependent edema, compression has been recommended to help to naturally decrease peripheral edema. Diuretic use has been discussed and pt has been instructed in appropriate use of such medication as necessary to further attempt to reduce peripheral edema. Diabetes Mellitus - Uncontrolled - per recent FSBS reports. I have recommended for the patient to have follow up labs prior to the next office visit. The patient has been instructed to continue with current medications as previously directed, continue with regular FSBS monitoring to assure continued control of diabetes. Pt to call for any acute concerns, complaints, or if the blood glucose readings are starting to become less controlled. I have recommended for the patient to follow more strictly to the diabetic diet as discussed in clinic to allow for greater blood glucose control. MAKE APPONTMENT FOR INSTRUCTIONS TO START BYETTA Hypohyroidism- increase to 88mcg daily Low back pain- the patient was instructed in appropriate posture, need for weight loss to alleviate abdominal obesity that is worsening the patient's back pain.. The pt is to use prn antiinflammatories to manage acute pain. The patient is to call the office if the pain is worsening or does not improve. KEEP FOLLOW UP APPOINTMENT WITH [facility]. 08/12/2013 Patient Education: Patient Medication Summary Completed 08/12/2013 Visit Plan: Diabetes Mellitus - Uncontrolled - I have recommended for the patient to have follow up labs prior to the next office visit. The patient has been instructed to continue with current medications as previously directed, continue with regular FSBS monitoring to assure continued control of diabetes. Pt to call for any acute concerns, complaints, or if the blood glucose readings are starting to become less controlled. I have recommended for the patient to follow more strictly to the diabetic diet as discussed in clinic to allow for greater blood glucose control. Edema-much improved-continue low sodium diet Hypothyroidism-check labs Lumbago-RX for voltaren gel-follow up with [facility] as scheduled 08/01/2013 Appointment: [phone] Follow up 08/01/2013 Patient Education: Patient Medication Summary Completed 08/01/2013 Appointment: [phone] [place] Follow up 07/25/2013 Appointment: Tessie Motta WPtel: [address] [place], [place] [phone] Follow up 07/25/2013 Visit Plan: Bister of foot-dressing changes discussed with patient and instructed her to keep her foot clean and dry-STOP WEARING FLIP FLOPS as they are causing friction over blistered area. Keep follow up appointment as scheduled. Call for redness, drainage or other s/s of infection. 07/19/2013 Appointment: Rika Bello WPtel: [address] [place], [place] [phone] [place] [address] Other 07/19/2013 Patient Education: Patient Medication Summary Completed 07/19/2013 Visit Plan: Cellulitis - culture of wound today in the office-the patient was instructed in appropriate wound care. The patient was instructed to use the antibiotic ointment as per RX. The patient is to call for any change in symptoms, increase in size of the lesion, increase in pain. Edema - pt has been advised to elevate legs to prevent dependent edema, compression has been recommended to help to naturally decrease peripheral edema. Diuretic use has been discussed and pt has been instructed in appropriate use of such medication as necessary to further attempt to reduce peripheral edema. 07/15/2013 Appointment: Rika Bello WPtel: [address] [place] [address] Other 07/15/2013 Patient Education: Patient Medication Summary Completed 07/15/2013 Patient Education: Hypertension Completed 07/15/2013 Appointment: Rika Bello WPtel: [address] [place], [place] [phone] Follow up 07/01/2013 Appointment: Rika Bello WPtel: [address] [place] [address] [place] Lab Draw 06/28/2013 Patient Education: Patient Medication Summary Completed 06/28/2013 Visit Plan: Diabetes Mellitus - controlled - per recent FSBS reports. I have recommended for the patient to have follow up labs prior to the next office visit. The patient has been instructed to continue with current medications as previously directed, continue with regular FSBS monitoring to assure continued control of diabetes. Pt to call for any acute concerns, complaints, or if the blood glucose readings are starting to become less controlled. Muscle spasms - refill of flexeril - monitor. Peripheral neuropathy - siplification of pt's regimen - recommended to stop lyrica and start higher dose of gabapentin from 600mg tid to 900mg tid. 06/27/2013 Appointment: Tessie Motta WPtel: [phone] [id number] Other 06/27/2013 Patient Education: Patient Medication Summary Completed 06/27/2013 Appointment: Tessie Motta WPtel: [phone] [id number] Other 06/24/2013 Visit Plan: Diabetes Mellitus - Uncontrolled - per recent FSBS reports. I have recommended for the patient to have follow up labs prior to the next office visit. The patient has been instructed to continue with current medications as previously directed, continue with regular FSBS monitoring to assure continued control of diabetes. Pt to call for any acute concerns, complaints, or if the blood glucose readings are starting to become less controlled. I have recommended for the patient to follow more strictly to the diabetic diet as discussed in clinic to allow for greater blood glucose control. Dyspnea - due to edema/likley some pulmonary edema due to pt's dietary indescretions and lack of following her asthma action gee. Edema - pt has been advised to elevate legs to prevent dependent edema, compression has been recommended to help to naturally decrease peripheral edema. Diuretic use has been discussed and pt has been instructed in appropriate use of such medication as necessary to further attempt to reduce peripheral edema. Pt has been instructed to stop eating soups because they have a lot of sodium in the soup. Pt is to stop eating canned veggies because they cause worsening edema. Pt has also been instructed to stop eating fast food due to worsening edema. PT HAS BEEN INSTRUCTED TO STOP EATING ANY CANNED FOODS. PT HAS BEEN INSTRUCTED TO STOP EATING ANY FAST FOODS. PT NEEDS TO BE ON A HEALTHY - FRESH FOODS DIET - FRESH VEGGIES, FRESH FRUITS, COOKED CHICKEN, BEEF, AVOID EXCESSIVE SALT. SALT RESTRICTION TO 2 GRAMS OF SODIUM IN A DAY. FOR THE NEXT 2 DAYS, MONAE IS TO TAKE 40MG OF LASIX IN THE MORNING AND 40MG IN THE AFTERNOON, THEN PT IS TO GO BACK TO 40MG IN MORNING AND 20MG IN THE AFTERNOON. 06/10/2013 Appointment: Tessie Motta WPtel: [id number] Follow up 06/10/2013 Patient Education: Patient Medication Summary Completed 06/10/2013 Appointment: Tessie Motta WPtel: [facility] Follow up 06/06/2013 Visit Plan: Sinusitis - Pt has acute infection - pain in face, maxillary region, Pt informed to use decongestant, RX given to patient, sinus rinses also recommended. Call if symptoms do not show improvement. Sacroilitis - back exercises discussed with the patient, pt to continue with antiinflammatories. Pt is to call if the symptoms do not improve or if they worsen. Injection into left SI joint region today. Bronchitis - acute case of bronchitis identified. Pt has been given antibiotics, breathing treatments as appropriate, and pt has been instructed to call if symptoms are not improved, or if symptoms acutely worsen. 05/07/2013 Appointment: Tessie Motta WPtel: [facility] Follow up 05/07/2013 Patient Education: Patient Medication Summary Completed 05/07/2013 Appointment: Tessie Motta WPtel: [facility] Follow up 04/30/2013 Visit Plan: Edema - pt has been advised to elevate legs to prevent dependent edema, compression has been recommended to help to naturally decrease peripheral edema. Diuretic use has been discussed and pt has been instructed in appropriate use of such medication as necessary to further attempt to reduce peripheral edema. Edema - pt has been advised to elevate legs to prevent dependent edema, compression has been recommended to help to naturally decrease peripheral edema. Diuretic use has been discussed and pt has been instructed in appropriate use of such medication as necessary to further attempt to reduce peripheral edema. COPD EXACERBATION - COPD is a chronic problem for this patient, however, the pt is experiencing an acute exacerbation of the COPD. Pt is to receive appropriate treatment as an out patient, but the pt is aware that if symptoms worsen or do not improve, to call ANA LAURA for instructions, or go to the EMERGENCY ROOM if the symptoms are beyond acute control with rescue medications. We have reviewed chronic treatment strategy, symptom control, and plans for acute exacerbations. No changes today to the current treatment plan as the patient is stable, monitor for acute changes. 04/16/2013 Appointment: Tessie Motta WPtel: [address] [place], [place] [phone] Follow up 04/16/2013 Patient Education: Patient Medication Summary Completed 04/16/2013 Appointment: Tessie Motta WPtel: [phone] [id number] Follow up 04/04/2013 Visit Plan: Lumbago-continue physical therapy-refill hydrocodone Diabetes Mellitus - I have recommended for the patient to have follow up labs prior to the next office visit. The patient has been instructed to continue with current medications as previously directed, continue with regular FSBS monitoring to assure continued control of diabetes. Pt to call for any acute concerns, complaints, or if the blood glucose readings are starting to become less controlled. I have recommended for the patient to follow more strictly to the diabetic diet as discussed in clinic to allow for greater blood glucose control. Edema - pt has been advised to elevate legs to prevent dependent edema, compression has been recommended to help to naturally decrease peripheral edema. Diuretic use has been discussed and pt has been instructed in appropriate use of such medication as necessary to further attempt to reduce peripheral edema. 03/21/2013 Appointment: Rika Bello WPtel: 1015 [phone] Follow up 03/21/2013 Patient Education: Patient Medication Summary Completed 03/21/2013 Appointment: Tessie Motta WPtel: [facility] [place] Follow up 03/20/2013 Appointment: Tessie Motta WPtel: 1015 [facility] [place] Follow up 03/05/2013 Visit Plan: Edema-significantly improved- pt has been advised to elevate legs to prevent dependent edema, compression has been recommended to help to naturally decrease peripheral edema. Diuretic use has been discussed and pt has been instructed in appropriate use of such medication as necessary to further attempt to reduce peripheral edema. Abdomoinal pain - history of diverticulitis, refer to Dr. Quintero for colonscopy. Discussed dietary modifications for diverticular disease. DM- I have recommended for the patient to have follow up labs prior to the next office visit. The patient has been instructed to continue with current medications as previously directed, continue with regular FSBS monitoring to assure continued control of diabetes. Pt to call for any acute concerns, complaints, or if the blood glucose readings are starting to become less controlled. 02/12/2013 Appointment: Rika Bello WPtel: [facility] [address] follow up 02/12/2013 Patient Education: Patient Medication Summary Completed 02/12/2013 Visit Plan: Edema - pt has been advised to elevate legs to prevent dependent edema, compression has been recommended to help to naturally decrease peripheral edema. Diuretic use has been discussed and pt has been instructed in appropriate use of such medication as necessary to further attempt to reduce peripheral edema. Dyspnea - recommended pt to see new it service continuity supervisor [facility] for [facility] evaluation and work-up. 02/04/2013 Appointment: Tessie Motta WPtel: [address] [place] [address] Follow up 02/04/2013 Patient Education: Patient Medication Summary Completed 02/04/2013 Visit Plan: Edema--recommend patient be admitted for further work up and treatment-patient does not want admitted at this time- called Dr Bautista in to evaluate patient and he advised patient to increase lasix -take 40mg this afternoon. Instructed patient to go to ER if symptoms do not improve after extra dose of lasix. Labs drawn today in the office and will call patient with results.Patient and verbalized understanding of plan. HTN- tachycardia-check labs-monitor blood pressure and heart rate closely-recommend ER if symptoms do not improve. 01/17/2013 Appointment: Rika Bello WPtel: [facility] [place] [address] Follow up 01/17/2013 Patient Education: Patient Medication Summary Completed 01/17/2013 Patient Education: Hypertension Completed 01/17/2013 Appointment: Tessie Motta WPtel: [address] [place], [place] [phone] Follow up 01/16/2013 Appointment: KaliaTessie WPtel: [address] [place], [place] [phone] Follow up 01/10/2013 Appointment: Rika Bello WPtel: [address] [place], [place] [id number] Lab Draw 01/01/2013 Patient Education: Patient Medication Summary Completed 01/01/2013 Visit Plan: Hypertension - The patient has been counseled to cut back on salt in diet for a no added salt diet, low fat diet, start an exercise program with low weight bearing exercises and higher aerobic activity for heart health. The patient is to check blood pressure readings as an outpatient and either fax, call, or email the readings to the office next week for practicioner to review. The pt is to call for acute concerns. MONITOR BLOOD PRESSURE AT HOME AND BRING IN READINGS FOR REVIEW. TAKE AN EXTRA LASIX AT HOME TODAY AND CALL TOMORROW. Ulcer of leg-continue santyl-follow up in 10 days Callus of toe-debrided today in the office-keep clean-follow up in 10 days-call for s/s of infection Urinary urgency-check UA Hypothyroidism-check labs 12/31/2012 Appointment: Rika Bello WPtel: [address] [place], [place] [phone] Follow up 12/31/2012 Appointment: Rika Bello WPtel: [address] [place], [place] [phone] Sick 12/31/2012 Patient Education: Patient Medication Summary Completed 12/31/2012 Patient Education: Hypertension Completed 12/31/2012 Visit Plan: Cellulitis - continue with oral antibiotics as previously directed, return to clinic as previously directed, call for acute change in symptoms, worsening redness, warmth, discharge. Culture of wound today in the office. Diabetes Mellitus - I have recommended for the patient to have follow up labs prior to the next office visit. The patient has been instructed to continue with current medications as previously directed, continue with regular FSBS monitoring to assure continued control of diabetes. Pt to call for any acute concerns, complaints, or if the blood glucose readings are starting to become less controlled. I have recommended for the patient to follow more strictly to the diabetic diet as discussed in clinic to allow for greater blood glucose control. Hypertension - uncontrolled - The patient has been counseled to cut back on salt in diet for a no added salt diet, low fat diet, start an exercise program with low weight bearing exercises and higher aerobic activity for heart health. The patient is to check blood pressure readings as an outpatient and return in 2 weeks for review. The pt is to call for acute concerns. Edema - pt has been advised to elevate legs to prevent dependent edema, compression has been recommended to help to naturally decrease peripheral edema. Diuretic use has been discussed and pt has been instructed in appropriate use of such medication as necessary to further attempt to reduce peripheral edema. Check labs. 12/20/2012 Appointment: Rika Bello WPtel: [address] [place] [address] Sick 12/20/2012 Patient Education: Patient Medication Summary Completed 12/20/2012 Patient Education: Hypertension Completed 12/20/2012 Appointment: Tessie Motta WPtel: [address] [place] [address] Lab Draw 11/05/2012 Patient Education: Patient Medication Summary Completed 11/05/2012 Visit Plan: Bronchitis - acute case of bronchitis identified. Pt has been given antibiotics, breathing treatments as appropriate, and pt has been instructed to call if symptoms are not improved, or if symptoms acutely worsen. 10/29/2012 Appointment: Tessie Motta WPtel: [address] [place], [place] [phone] Sick 10/29/2012 Patient Education: Patient Medication Summary Completed 10/29/2012 Visit Plan: Joint Injection-left SI joint - Pt was given post - injection instructions. The pt has been advised to use antiinflammatories post injection today, ice to the injected site, call if redness, warmth, or increased pain occurs at the site of injection. 09/21/2012 Appointment: Rika Bello WPtel: [address] [place] [address] Follow up 09/21/2012 Patient Education: Patient Medication Summary Completed 09/21/2012 Visit Plan: Hypertension - well controlled - continue with current medications, continue with no added salt diet. Pt has been encouraged to exercise daily. The pt has been advised to call the office if there are any acute concerns about change in blood pressure readings at home. Diabetes Mellitus - DIET controlled - per recent FSBS reports. Continue with regular FSBS monitoring to assure continued control of diabetes. Pt to call for any acute concerns, complaints, or if the blood glucose readings are starting to become less controlled. Hypothyroidism - pt with chronic hypothyroidism, continue with current medication, will monitor pt to signs or symptoms of lack of adequate supplementation. Pt is to continue with current dose of medication unless directed otherwise. Check labs at regular intervals wither q 3 months or q 6 months based on previous levels of control. 09/06/2012 Appointment: Tessie Motta WPtel: [address] [place], [place] [phone] Follow up 09/06/2012 Patient Education: Patient Medication Summary Completed 09/06/2012 Patient Education: Hypertension Completed 09/06/2012 Visit Plan: Hypertension - well controlled - continue with current medications, continue with no added salt diet. Pt has been encouraged to exercise daily. The pt has been advised to call the office if there are any acute concerns about change in blood pressure readings at home. Diabetes Mellitus - I have recommended for the patient to have follow up labs prior to the next office visit. The patient has been instructed to continue with current medications as previously directed, continue with regular FSBS monitoring to assure continued control of diabetes. Pt to call for any acute concerns, complaints, or if the blood glucose readings are starting to become less controlled. Rpqpsvhn-cowicevw-pdgpldal probiotic-continue to hold metformin and repeat labs before appt in 2 weeks. Call for abd pain, worsening diarrhea, or other concerns. 08/23/2012 Appointment: Tessie Motta WPtel: [id number] Follow up 08/23/2012 Patient Education: Patient Medication Summary Completed 08/23/2012 Patient Education: Hypertension Completed 08/23/2012 Visit Plan: Hypertension - elevated today-return for follow up in 10 days- continue with current medications, continue with no added salt diet. Pt has been encouraged to exercise daily. The pt has been advised to call the office if there are any acute concerns about change in blood pressure readings at home. PATIENT IS TO CALL IF SHE IS UNABLE TO KEEP MEDICATIONS DOWN. Gastroenteritis - recommended bland diet, low fat diet, start on probiotic, and rehydrate with gatorade-like product. Pt to call if feeling worse, diarrhea becomes bloody, or does not improve with above recommendations. Pt to call for acute worsening of stomach upset or stomach pain. CONTINUE TO HOLD LIPITOR AND METFORMIN-MONITOR SYMPTOMS AND CALL IF DIARRHEA CONTINUES, ABDOMINAL PAIN, OR UNABLE TO TOLERATE PO FLUIDS. PATIENT AND VERBALIZED UNDERSTANDING OF PLAN. 08/13/2012 Appointment: Rika Bello WPtel: [address] Follow up 08/13/2012 Patient Education: Patient Medication Summary Completed 08/13/2012 Patient Education: Hypertension Completed 08/13/2012 Visit Plan: Diarrhea - recommended bland diet, low fat diet , start on probiotic, and rehydrate with gatorade-like product. Pt to call if feeling worse, diarrhea becomes bloody, or does not improve with above recommendations. Pt to call for acute worsening of stomach upset or stomach pain. RX for flagyl sent to patient's pharmacy. Patient sent to the hospital for labs including stools for cdiff and a UA. Plan to hold metformin while acute episode of diarrhea persists and then restart as able. Recommend probiotic twice daily as well. Discussed ER if symptoms worsen. Patient and verbalized understanding. DM-monitor blood sugars closely as holding the metformin will likely increase her blood sugars-patient and verbalized understanding. Hypertension - The patient has been counseled to cut back on salt in diet for a no added salt diet, low fat diet, start an exercise program with low weight bearing exercises and higher aerobic activity for heart health. The patient is to check blood pressure readings as an outpatient and either fax, call, or email the readings to the office next week for practicioner to review. The pt is to call for acute concerns. 08/07/2012 Appointment: Rika Bello WPtel: [phone] [phone] Other 08/07/2012 Patient Education: Patient Medication Summary Completed 08/07/2012 Patient Education: Hypertension Completed 08/07/2012 Visit Plan: UA-sent for culture 07/19/2012 Appointment: Rika Bello WPtel: [phone] Lab Draw 07/19/2012 Patient Education: Patient Medication Summary Completed 07/19/2012 Visit Plan: Sinusitis - Pt has acute infection - pain in face, maxillary region, Pt informed to use decongestant, RX given to patient, sinus rinses also recommended. Recommend take start on probiotic while on antibiotics. Call if symptoms do not show improvement. Recommend follow up with Dr Billy oCnte-discussed natural and expected course of this diagnosis and to alert me if symptoms do not folow expected course, or if any worse. RX sent to patient's pharmacy-instructed to use 24 hours after symptoms completely resolve. Follow up in the office as directed 07/06/2012 Appointment: Rika Bello WPtel: [phone] [phone] [facility] 07/06/2012 Patient Education: Patient Medication Summary Completed 07/06/2012 Visit Plan: Hypertension - well controlled - continue with current medications, continue with no added salt diet. Pt has been encouraged to exercise daily. The pt has been advised to call the office if there are any acute concerns about change in blood pressure readings at home. Diabetes Mellitus - controlled - per recent FSBS reports. I have recommended for the patient to have follow up labs prior to the next office visit. The patient has been instructed to continue with current medications as previously directed, continue with regular FSBS monitoring to assure continued control of diabetes. Pt to call for any acute concerns, complaints, or if the blood glucose readings are starting to become less controlled. However, potential side effects w metformin, therefore, will decrease dose to 1/2 pill twice daily and monitor symptoms of diarrhea and blood glucose levels pneumovac given today 06/07/2012 Appointment: Tessie Motta WPtel: [facility] Follow up 06/07/2012 Appointment: Tessie Motta WPtel: [facility] [place] Follow up 06/07/2012 Patient Education: Patient Medication Summary Completed 06/07/2012 Patient Education: Hypertension Completed 06/07/2012 Visit Plan: Hypertension - uncontrolled - the patient's medications have been modified as documented in the visit note. The patient has been counseled to cut back on salt in diet for a no added salt diet, low fat diet, start an exercise program with low weight bearing exercises and higher aerobic activity for heart health. The patient is to check blood pressure readings as an outpatient and either fax, call, or email the readings to the office next week for practicioner to review. The pt is to call for acute concerns. Sinusitis - Pt has acute infection - pain in face, maxillary region, Pt informed to use decongestant, RX given to patient, sinus rinses also recommended. Call if symptoms do not show improvement. Labial cyst-RX for abx sent to patient's pharamcy-cultured today in the office-follow up in 10 days. 05/28/2012 Appointment: Rika Bello WPtel: [phone] [phone] Follow up 05/28/2012 Patient Education: Patient Medication Summary Completed 05/28/2012 Patient Education: Hypertension Completed 05/28/2012 Visit Plan: Hypertension - uncontrolled - the patient's medications have been modified as documented in the visit note. The patient has been counseled to cut back on salt in diet for a no added salt diet, low fat diet, start an exercise program with low weight bearing exercises and higher aerobic activity for heart health. The patient is to check blood pressure readings as an outpatient and either fax, call, or email the readings to the office next week for practicioner to review. The pt is to call for acute concerns. Recommend cardiac clearance before knee surgery. Edema - pt has been advised to elevate legs to prevent dependent edema, compression has been recommended to help to naturally decrease peripheral edema. Diuretic use has been discussed and pt has been instructed in appropriate use of such medication as necessary to further attempt to reduce peripheral edema. 05/17/2012 Appointment: [phone] [facility] 05/17/2012 Patient Education: Patient Medication Summary Completed 05/17/2012 Patient Education: Hypertension Completed 05/17/2012 Visit Plan: Edema - pt has been advised to elevate legs to prevent dependent edema, compression has been recommended to help to naturally decrease peripheral edema. Diuretic use has been discussed and pt has been instructed in appropriate use of such medication as necessary to further attempt to reduce peripheral edema. Hypertension - well controlled - continue with current medications, continue with no added salt diet. Pt has been encouraged to exercise daily. The pt has been advised to call the office if there are any acute concerns about change in blood pressure readings at home. Diarrhea-start probiotic-check stool studies if does not resolve Allergies - chronic - recommended pt to use allergy medication as prescribed. Pt has been counseled as the the appropriate use of the medication. Pt to call if allergy symptoms are not controlled with the medication. If using nasal spray, instructions as follows: Nasal spray- use twice daily, one spray per nostril twice daily, after 30 minutes, rinse out nose with saline spray.. Use opposite hand per nostril to spray in the nasal steroid allergy spray. Kenalog injection today in the office 05/02/2012 Appointment: [facility]el[phone] Follow [facility] 05/02/2012 Patient Education: Patient Medication Summary Completed 05/02/2012 Patient Education: Hypertension Completed 05/02/2012 Appointment: Tessie Motta WPtel: [facility] Follow up 04/25/2012 Visit Plan: Sinusitis - Pt has acute infection - pain in face, maxillary region, Pt informed to use decongestant, RX given to patient, sinus rinses also recommended. Recommend take start on probiotic while on antibiotics. Call if symptoms do not show improvement. Allergies - chronic - recommended pt to use allergy medication as prescribed. Pt has been counseled as the the appropriate use of the medication. Pt to call if allergy symptoms are not controlled with the medication. If using nasal spray, instructions as follows: Nasal spray- use twice daily, one spray per nostril twice daily, after 30 minutes, rinse out nose with saline spray.. Use opposite hand per nostril to spray in the nasal steroid allergy spray. Hypertension - uncontrolled - no change in medications today-patient is to monitor blood pressure and pulse at home and bring in readings next wee for review-if blood pressure remains elevated, we will adjust medications. The patient has been counseled to cut back on salt in diet for a no added salt diet, low fat diet, start an exercise program with low weight bearing exercises and higher aerobic activity for heart health. The patient is to check blood pressure readings as an outpatient and either fax, call, or email the readings to the office next week for practicioner to review. The pt is to call for acute concerns. 04/10/2012 Appointment: Rika Bello WPtel: [phone] [id number] Follow up 04/10/2012 Patient Education: Patient Medication Summary Completed 04/10/2012 Patient Education: High Blood Pressure: Essential Hypertension Completed 2011 Visit Plan: Hypertension - well controlled - continue with current medications, continue with no added salt diet. Pt has been encouraged to exercise daily. The pt has been advised to call the office if there are any acute concerns about change in blood pressure readings at home. Edema - uncontrolled swelling. I have informed the patient of ways to naturally decrease the swelling in their lower legs - cut back on salt to 2 - 3 grams/day , the lower the sodium content of food, the healthier and less potential for swelling, however don't completely cut all sodium from diet. Pt was also counseled to elevate lower legs and/or use compression socks from toes to thighs. Foreign body-left foot-continue abx-Dr. Mejia to perform I&D on Monday02/27/2012 Appointment: Rika Bello WPtel: [phone] [phone] Follow up 02/27/2012 Patient Education: Patient Medication Summary Completed 02/27/2012 Patient Education: High Blood Pressure: Essential Hypertension Completed 2011 Visit Plan: Celllulitis of foot-suspect foreign body-plan to xray today at the hospital and will start patient on abx-culture obtained as well-discussed podiatry referral as well DM-discussed proper foot wear with patient and instructed her not to walk around bare foot at any time. Patient verbalized understanding Edema - uncontrolled swelling. I have informed the patient of ways to naturally decrease the swelling in their lower legs - cut back on salt to 2 - 3 grams/day, the lower the sodium content of food, the healthier and less potential for swelling, however don't completely cut all sodium from diet. Pt was also counseled to elevate lower legs and/or use compression socks from toes to thighs. 02/15/2012 Appointment: Rika Bello WPtel: [address] Follow up 02/15/2012 Patient Education: Patient Medication Summary Completed 02/15/2012 Visit Plan: Edema - uncontrolled swelling. I have informed the patient of ways to naturally decrease the swelling in their lower legs - cut back on salt to 2 - 3 grams/day, the lower the sodium content of food, the healthier and less potential for swelling, however don't completely cut all sodium from diet. Pt was also counseled to elevate lower legs and/or use compression socks from toes to thighs. [facility] the [facility] as well. Hypertension - well controlled - continue with current medications, continue with no added salt diet. Pt has been encouraged to exercise daily. The pt has been advised to call the office if there are any acute concerns about change in blood pressure readings at home Sinusitis - Pt has acute infection - pain in face, maxillary region, Pt informed to use decongestant, RX given to patient, sinus rinses also recommended. Recommend take start on probiotic while on antibiotics. Call if symptoms do not show improvement Dysuria-check UA-UA negative in the office, however, plan to recheck UA as patient was only able to give very small sample of urine. 02/01/2012 Appointment: [phone] [facility] 02/01/2012 Patient Education: Patient Medication Summary Completed 02/01/2012 Patient Education: High Blood Pressure: Essential Hypertension Completed 2011 Visit Plan: Diabetes Mellitus - controlled - per recent FSBS reports. I have recommended for the patient to have follow up labs prior to the next office visit. The patient has been instructed to continue with current medications as previously directed, continue with regular FSBS monitoring to assure continued control of diabetes. Pt to call for any acute concerns, complaints, or if the blood glucose readings are starting to become less controlled. Diverticulitis- recommended liquid diet x 24 hours, then bland diet, pt started on flagyl three times daily x 10 days. Trigger point injection to left buttocks 12/14/2011 Appointment: Tessie Motta WPtel: [phone] [phone] Other 12/14/2011 Patient Education: Patient Medication Summary Completed 12/14/2011 Appointment: Tessie Motta WPtel: [facility]8 [facility] Follow up 12/08/2011 Visit Plan: N/V/D - discussed need to stay away from milk products while acutely ill with diarrhea and nausea and emesis as it may worsen the symptoms. Liquids initially until the nausea improves, then recommend to advance to bland diet for 1 day, then advance as tolerated. Phenergan injection today in the office and zofran as needed at home. Plan to check labs today as well as stool studies for cdiff. Instructed patient to call if symptoms do not improve, or if any worse Hypertension - patient has not taken her routine medications today-I have instructed patient to take medications at home today. The patient is to check blood pressure readings as an outpatient and either fax , call, or email the readings to the office next week for practicioner to review. The pt is to call for acute concerns. Diabetes Mellitus - patient not checking blood sugars-instructed patient to check blood sugars routinely especially if she is not feeling well. The patient has been instructed to continue with current medications as previously directed. Pt to call for any acute concerns, complaints, or if the blood glucose readings are starting to become less controlled. 11/30/2011 Appointment: Rika Bello WPtel: [facility]3 [phone] Other 11/30/2011 Patient Education: Patient Medication Summary Completed 11/30/2011 Patient Education: High Blood Pressure: Essential Hypertension Completed 2011 Visit Plan: Diabetes Mellitus - controlled - per recent FSBS reports. I have recommended for the patient to have follow up labs prior to the next office visit. The patient has been instructed to continue with current medications as previously directed, continue with regular FSBS monitoring to assure continued control of diabetes. Pt to call for any acute concerns, complaints, or if the blood glucose readings are starting to become less controlled. Hypertension - well controlled - continue with current medications, continue with no added salt diet. Pt has been encouraged to exercise daily. The pt has been advised to call the office if there are any acute concerns about change in blood pressure readings at home. Chronic fatigue and Chronic Sinusitis - pt has been instructed to keep her appt with Dr. Cervantes for sinus surgery, and with the specialist for back/epidural injections. Part of her fatigue is due to her sinusitis and part of her fatigue id annabel to her chronic back pain. 11/17/2011 Appointment: Tessie Motta WPtel: 1011 [id number] Other 11/17/2011 Patient Education: Patient Medication Summary Completed 11/17/2011 Patient Education: High Blood Pressure: Essential Hypertension Completed 2011 Visit Plan: ADMIT FROM CLINIC TO HOSPITAL - PT IS ACUTELY ILL, REQUIRES HOSPITALIZATION. THE PATIENT HAS BEEN EVALUATED IN CLINIC AND THIS STANDS THE HOSPITAL HISTORY AND PHYSICAL EXAMINATION. THE PATIENT HAS BEEN SENT TO THE HOSPITAL WITH WRITTEN ORDERS FOR TREATMENT AND EVALUATION OF THE ACUTE ILLNESS. Confusion and falls - concern for potential intracranial issue due to her increased confusion after her fall - - will admit, check CT of head. Will check labs - see if pt has electrolyte abnormality, or UTI causing the confusion. Check blood cultures. DM and HTN - monitor blood pressure and blood glucose levels. Tachycardia - uncontrolled - will consult her primary ambulette driver for assistance with control her her heart rate. Ulcer of toe - continue with topical antibiotics as previously directed, return to clinic as previously directed, call for acute change in symptoms, worsening redness, warmth, discharge. 11/03/2011 Appointment: Tessie Motta WPtel: [phone] [phone] Other 11/03/2011 Patient Education: Patient Medication Summary Completed 11/03/2011 Patient Education: High Blood Pressure: Essential Hypertension Completed 2011 Visit Plan: Diabetes Mellitus - controlled - per recent FSBS reports. I have recommended for the patient to have follow up labs prior to the next office visit. The patient has been instructed to continue with current medications as previously directed, continue with regular FSBS monitoring to assure continued control of diabetes. Pt to call for any acute concerns, complaints, or if the blood glucose readings are starting to become less controlled. Depression - uncontrolled - Pt has been counseled about the diagnosis of depression, the potential causes, and risks associated with the diagnosis. The pt denies suicidal ideation, or plans. The patient has been counseled about treatment options, and understands the risks associated with treatment of depression, as well as the risks associated with NOT treating the depression. I believe the pt will benefit from medical intervention and an antidepressant has been appropriately prescribed for this patient. Increase effexor to 75 mg in AM and 37.5mg at bedtime x 3 weeks, then start on 150mg tablet that has been sent to the pharmacy. Ulcer of toe - continue with topical antibiotics as previously directed, return to clinic as previously directed, call for acute change in symptoms, worsening redness, warmth, discharge. 10/24/2011 Appointment: Tessie Motta WPtel: 1015 [facility] [place] Other 10/24/2011 Patient Education: Patient Medication Summary Completed 10/24/2011 Visit Plan: Edema - pt has been advised to elevate legs to prevent dependent edema, compression has been recommended to help to naturally decrease peripheral edema. Diuretic use has been discussed and pt has been instructed in appropriate use of such medication as necessary to further attempt to reduce peripheral edema. Hypertension - well controlled - continue with current medications, continue with no added salt diet. Pt has been encouraged to exercise daily. The pt has been advised to call the office if there are any acute concerns about change in blood pressure readings at home. Anxiety - the patient has uncontrolled anxiety and will benefit from an SSRI on a daily basis to attempt control of the symptoms of anxiety (tachycardia, overwhelming sensations, stress, insomnia, etc). I also believe that the patient will benefit from very low dose of prn benzodiazepine. Pt is aware of the risks and benefits of treament with the above medications. Call if symptoms uncontrolled with medications as her recently diagnosed with lymphoma. 09/26/2011 Appointment: [facility]el[phone] Other 09/26/2011 Patient Education: Patient Medication Summary Completed 09/26/2011 Patient Education: High Blood Pressure: Essential Hypertension Completed 2011 Visit Plan: Edema - uncontrolled swelling. I have informed the patient of ways to naturally decrease the swelling in their lower legs - cut back on salt to 2 - 3 grams/day, the lower the sodium content of food, the healthier and less potential for swelling, however don't completely cut all sodium from diet. Pt was also counseled to elevate lower legs and/or use compression socks from toes to thighs Hypertension - well controlled - continue with current medications, continue with no added salt diet. Pt has been encouraged to exercise daily. The pt has been advised to call the office if there are any acute concerns about change in blood pressure readings at home. 09/20/2011 Patient Education: Patient Medication Summary Completed 09/20/2011 Patient Education: High Blood Pressure: Essential Hypertension Completed 2011 Appointment: Tessie Motta WPtel: [address] [place] [address] Other 09/05/2011 Visit Plan: Sinusitis - Pt has acute infection - pain in face, maxillary region, Pt informed to use decongestant, RX given to patient, sinus rinses also recommended. Call if symptoms do not show improvement. Cough- gave RX for phenergan with codeine. Allergies - chronic - recommended pt to use allergy medication as prescribed. Pt has been counseled as the the appropriate use of the medication. Pt to call if allergy symptoms are not controlled with the medication. 09/01/2011 Appointment: Tessie Motta WPtel: [address] [place] [address] Other 09/01/2011 Patient Education: Patient Medication Summary Completed 09/01/2011 Visit Plan: Sinusitis - continue with ciprofloxacin and start on corcidin HBP. Anxiety - start the xanax 0.5mg 1/2 pill twice daily. 08/15/2011 Appointment: Tessie Motta WPtel: [address] [place] [address] Other 08/15/2011 Appointment: Tessie Motta WPtel: [address] [place] [address] Other 08/15/2011 Patient Education: Patient Medication Summary Completed 08/15/2011 Visit Plan: Sinusitis - Pt has acute infection - pain in face, maxillary region, Pt informed to use decongestant, RX given to patient, sinus rinses also recommended. Call if symptoms do not show improvement. Plan for cipro and flagyl. Tachycardia-plan to check labs as well as EKG today at the hospital. Will schedule patient for holter monitor as well. Instructed patient to take her medications as prescribed except HOLD LISINOPRIL/HCTZ for now. Monitor blood pressure and pulse and call with any concerns. Plan for IVF at the hospital today. Anxiety - the patient has uncontrolled anxiety and will benefit from an SSRI on a daily basis to attempt control of the symptoms of anxiety (tachycardia, overwhelming sensations, stress, insomnia, etc). I also believe that the patient will benefit from very low dose of prn benzodiazepine. Pt is aware of the risks and benefits of treament with the above medications. Sciatica- exercises discussed with the patient, pt to continue with antiinflammatories. Pt is to call if the symptoms do not improve or if they worsen. Plan for demerol injection today at the hospital. 08/09/2011 Appointment: Rika Bello WPtel: [address] [place], [place] [phone] Other 08/09/2011 Patient Education: Patient Medication Summary Completed 08/09/2011 Visit Plan: Diabetes Mellitus - controlled - per recent FSBS reports. I have recommended for the patient to have follow up labs prior to the next office visit. The patient has been instructed to continue with current medications as previously directed, continue with regular FSBS monitoring to assure continued control of diabetes. Pt to call for any acute concerns, complaints, or if the blood glucose readings are starting to become less controlled. Joint Injection - Pt was given post - injection instructions. The pt has been advised to use antiinflammatories post injection today, ice to the injected site, call if redness, warmth, or increased pain occurs at the site of injection. Sciatica- exercises discussed with the patient, pt to continue with antiinflammatories. Pt is to call if the symptoms do not improve or if they worsen. Yeast infection-rx for diflucan-call if symptoms do not resolve 08/01/2011 Appointment: Rika Bello WPtel: 1013 [phone] Other 08/01/2011 Patient Education: Patient Medication Summary Completed 08/01/2011 Appointment: Rika Bello WPtel: [phone] [phone] Other 07/26/2011 Appointment: Tessie Motta WPtel: 1015 [facility]6[address] Other 07/18/2011 Visit Plan: Diabetes Mellitus - controlled - per recent FSBS reports. I have recommended for the patient to have follow up labs prior to the next office visit. The patient has been instructed to continue with current medications as previously directed, continue with regular FSBS monitoring to assure continued control of diabetes. Pt to call for any acute concerns, complaints, or if the blood glucose readings are starting to become less controlled. Sinusitis - Pt has acute infection - pain in face, maxillary region, Pt informed to use decongestant, RX given to patient, sinus rinses also recommended. Call if symptoms do not show improvement. Fibromyalgia - pt has been counseled about healthy diet, exercise, and adequate rest in the evening/ nighttime for optimal health and improvement of the fibromyalgia symptoms. Pt is to use medication for pain control and symptom management sparingly. 06/20/2011 Appointment: Kalia Tessie WPtel: 1015 [phone] Other 06/20/2011 Patient Education: Patient Medication Summary Completed 06/20/2011 Visit Plan: Diabetes Mellitus - controlled - per recent FSBS reports. I have recommended for the patient to have follow up labs prior to the next office visit. The patient has been instructed to continue with current medications as previously directed, continue with regular FSBS monitoring to assure continued control of diabetes. Pt to call for any acute concerns, complaints, or if the blood glucose readings are starting to become less controlled. Hypertension - uncontrolled - the patient's medications have been modified as documented in the visit note. The patient has been counseled to cut back on salt in diet for a no added salt diet, low fat diet, start an exercise program with low weight bearing exercises and higher aerobic activity for heart health. The patient is to check blood pressure readings as an outpatient and either fax, call, or email the readings to the office next week for practicioner to review. The pt is to call for acute concerns. increase lisinopril to 40/25mg daily. Sinusitis - Pt has acute infection - pain in face, maxillary region, Pt informed to use decongestant, RX given to patient, sinus rinses also recommended. Call if symptoms do not show improvement.. Take the full course of the antibiotic.. Start on mucinex 1200 mg twice daily x 14 days.. then take one pill daily. x 1 month. 04/18/2011 Appointment: Tessie Motta WPtel: [facility] [address] Other 04/18/2011 Patient Education: Patient Medication Summary Completed 04/18/2011 Patient Education: High Blood Pressure: Essential Hypertension Completed 2010 Appointment: Tessie Motta WPtel: [address] [place] [address] Other 04/12/2011 Appointment: Tessie Motta WPtel: [address] [place] [address] Other 02/16/2011 Referral: Matt Pavon [facility]:[phone] Referral Initiated Referral: Yareli Raines Referral Appointment Requested Referral: Raul Shelley Referral Appointment Requested Referral: Mimi Mejia Referral Initiated Instructions Comment INCREASE LEVEMIR TO 10 UNITS TWICE DAILY . Diabetes Mellitus - Uncontrolled - per recent FSBS reports. I have recommended for the patient to have follow up labs prior to the next office visit. The patient has been instructed to continue with current medications as previously directed, continue with regular FSBS monitoring to assure continued control of diabetes. Pt to call for any acute concerns, complaints, or if the blood glucose readings are starting to become less controlled. I have recommended for the patient to follow more strictly to the diabetic diet as discussed in clinic to allow for greater blood glucose control. Cellulitis-right leg-start abx-call if symptoms do not resolve or if any worse Edema - pt has been advised to elevate legs to prevent dependent edema, compression has been recommended to help to naturally decrease peripheral edema. Diuretic use has been discussed and pt has been instructed in appropriate use of such medication as necessary to further attempt to reduce peripheral edema. . Bister of foot-dressing changes discussed with patient and instructed her to keep her foot clean and dry-STOP WEARING FLIP FLOPS as they are causing friction over blistered area. Keep follow up appointment as scheduled. Call for redness, drainage or other s/s of infection. TOUJEO 40 units BID Novolg 10 units before meals PLUS extra if blood sugar is high. Add 1 u for BG 151-175, 2u for BG 176-200, 3 u for BG 201-225, 4u BG 226-250, 6u for BG 251-275, add 7u for BG 276-300, add 8u 301-325 INCREASE SLOW FE TO EVERY OTHER DAY RECOMMEND PHYSICAL THERAPY taper off xanax . Hypertension - well controlled - continue with current medications, continue with no added salt diet. Pt has been encouraged to exercise daily. The pt has been advised to call the office if there are any acute concerns about change in blood pressure readings at home. DM-patient is seeing Dr Raines and noncompliant with treatment-i have discussed Dr Raines's treatment plan with Mirtha again today in the office. Low back pain-again recommend PT -patient continues to refuse -discussed the importance of physical activity and that using a wheelchair will not help her maintain mobility and strength Anxiety-chronic -plan to decrease xanax to twice daily and taper off as directed . Sinusitis - Pt has acute infection - pain in face, maxillary region, Pt informed to use decongestant, RX given to patient, sinus rinses also recommended. Call if symptoms do not show improvement. Cough- gave RX for phenergan with codeine. Allergies - chronic - recommended pt to use allergy medication as prescribed. Pt has been counseled as the the appropriate use of the medication. Pt to call if allergy symptoms are not controlled with the medication. . Diabetes Mellitus - controlled - per recent FSBS reports. I have recommended for the patient to have follow up labs prior to the next office visit. The patient has been instructed to continue with current medications as previously directed, continue with regular FSBS monitoring to assure continued control of diabetes. Pt to call for any acute concerns, complaints, or if the blood glucose readings are starting to become less controlled. Hypertension - well controlled - continue with current medications, continue with no added salt diet. Pt has been encouraged to exercise daily. The pt has been advised to call the office if there are any acute concerns about change in blood pressure readings at home. Chronic fatigue and Chronic Sinusitis - pt has been instructed to keep her appt with Dr. Cervantes for sinus surgery, and with the specialist for back/epidural injections. Part of her fatigue is due to her sinusitis and part of her fatigue id annabel to her chronic back pain. . Cellulitis - continue with oral antibiotics as previously directed, return to clinic as previously directed, call for acute change in symptoms, worsening redness, warmth, discharge. Cleelsep-hgetkwnjwmhk-dhpdd labs today-patient has been given orders multiple times for labs but hasn't done them-agrees to have labs checked today HTN-not well controlled-cut back on sodium/salty foods-follow up in 10 days Edema - pt has been advised to elevate legs to prevent dependent edema, compression has been recommended to help to naturally decrease peripheral edema. Diuretic use has been discussed and pt has been instructed in appropriate use of such medication as necessary to further attempt to reduce peripheral edema. . Bronchitis - will check labs, if symptoms worsen, or continue will order CXR - acute case of bronchitis identified. Pt has been given antibiotics, breathing treatments as appropriate, and pt has been instructed to call if symptoms are not improved, or if symptoms acutely worsen. Sinusitis - Pt has acute infection - pain in face, maxillary region, Pt informed to use decongestant, RX given to patient, sinus rinses also recommended. Call if symptoms do not show improvement. . Hypertension - well controlled - continue with current medications, continue with no added salt diet. Pt has been encouraged to exercise daily. The pt has been advised to call the office if there are any acute concerns about change in blood pressure readings at home. Diabetes Mellitus - I have recommended for the patient to have follow up labs prior to the next office visit. The patient has been instructed to continue with current medications as previously directed, continue with regular FSBS monitoring to assure continued control of diabetes. Pt to call for any acute concerns, complaints, or if the blood glucose readings are starting to become less controlled. Qgauyrqk-liuitqnn-nejmzbmf probiotic-continue to hold metformin and repeat labs before appt in 2 weeks. Call for abd pain, worsening diarrhea, or other concerns. . Diabetes Mellitus - controlled - per recent FSBS reports. I have recommended for the patient to have follow up labs prior to the next office visit. The patient has been instructed to continue with current medications as previously directed, continue with regular FSBS monitoring to assure continued control of diabetes. Pt to call for any acute concerns, complaints, or if the blood glucose readings are starting to become less controlled. Diverticulitis- recommended liquid diet x 24 hours, then bland diet, pt started on flagyl three times daily x 10 days. Trigger point injection to left buttocks . Diabetes Mellitus - controlled - per recent FSBS reports. I have recommended for the patient to have follow up labs prior to the next office visit. The patient has been instructed to continue with current medications as previously directed, continue with regular FSBS monitoring to assure continued control of diabetes. Pt to call for any acute concerns, complaints, or if the blood glucose readings are starting to become less controlled. Sinusitis - Pt has acute infection - pain in face, maxillary region, Pt informed to use decongestant, RX given to patient, sinus rinses also recommended. Call if symptoms do not show improvement. . Sinusitis - Pt has acute infection - pain in face, maxillary region, Pt informed to use decongestant, RX given to patient, sinus rinses also recommended. Recommend take start on probiotic while on antibiotics. Call if symptoms do not show improvement. Recommend follow up with Dr Billy Conte-discussed natural and expected course of this diagnosis and to alert me if symptoms do not folow expected course, or if any worse. RX sent to patient's pharmacy-instructed to use 24 hours after symptoms completely resolve. Follow up in the office as directed . Diabetes Mellitus - controlled - per recent FSBS reports. I have recommended for the patient to have follow up labs prior to the next office visit. The patient has been instructed to continue with current medications as previously directed, continue with regular FSBS monitoring to assure continued control of diabetes. Pt to call for any acute concerns, complaints, or if the blood glucose readings are starting to become less controlled. Muscle spasms - refill of flexeril - monitor. Peripheral neuropathy - siplification of pt's regimen - recommended to stop lyrica and start higher dose of gabapentin from 600mg tid to 900mg tid. . Xui-fnkcujxfkb-fx changes Anemia-check cbc today Dental infection-on clindamycin per Dr Bryant-start probiotics Also needs to monitor blood sugars closely . Hypertension - well controlled - continue with current medications, continue with no added salt diet. Pt has been encouraged to exercise daily. The pt has been advised to call the office if there are any acute concerns about change in blood pressure readings at home. KM-gszmvvvkryuo-mtwnkeqbq strict diet and exercise with patient Low bquqognqz-smkwvwsd-pigdmgeq to monitor Abd ooeg-unlgkdlu-ip changes . Cellulitis - culture of wound today in the office-the patient was instructed in appropriate wound care. The patient was instructed to use the antibiotic ointment as per RX. The patient is to call for any change in symptoms, increase in size of the lesion, increase in pain. Edema - pt has been advised to elevate legs to prevent dependent edema, compression has been recommended to help to naturally decrease peripheral edema. Diuretic use has been discussed and pt has been instructed in appropriate use of such medication as necessary to further attempt to reduce peripheral edema. . Dental abscess - will send RX - pt is to keep her appointment with her dentist - pt is to notify clinic if symptoms do not improve , if they worsen, or with any other acute changes, questions, or concerns. FOR CHOLESTEROL - THE NEW DOSE OF LIPITOR IS 40MG DAILY, DOUBLE THE MED THAT YOU CURRENTLY HAVE TO EQUAL 40MG, THEN FILL NEW RX WHEN OUT OF CURRENT SUPPLY. FOR THYROID - THE NEW DOSE OF SYNTHROID (LEVOTHYROXINE) IS 50MCG - DOUBLE THE CURRENT DOSE OF 25MCG TO GET TO THE NEW RX AND THEN WHEN CURRENT SUPPLY IS GONE , FILL NEW RX.. Hypertension - well controlled - continue with current medications, continue with no added salt diet. Pt has been encouraged to exercise daily. The pt has been advised to call the office if there are any acute concerns about change in blood pressure readings at home. Diabetes Mellitus - DIET controlled - per recent FSBS reports. Continue with regular FSBS monitoring to assure continued control of diabetes. Pt to call for any acute concerns, complaints, or if the blood glucose readings are starting to become less controlled. Hypothyroidism - pt with chronic hypothyroidism, continue with current medication, will monitor pt to signs or symptoms of lack of adequate supplementation. Pt is to continue with current dose of medication unless directed otherwise. Check labs at regular intervals wither q 3 months or q 6 months based on previous levels of control. . Hypertension - well controlled - continue with current medications, continue with no added salt diet. Pt has been encouraged to exercise daily. The pt has been advised to call the office if there are any acute concerns about change in blood pressure readings at home. Afib-managed by Dr Dyer-appt to see Dr Lr for ablation Sleep apnea-needs new cpap due to mold-will write for new machine DM-not checking blood sugars-new glucometer provided COPD-on oxygen-needs new nebulizer and supplies due to mold . Hypertension - well controlled - continue with current medications, continue with no added salt diet. Pt has been encouraged to exercise daily. The pt has been advised to call the office if there are any acute concerns about change in blood pressure readings at home. Diabetes Mellitus - controlled - per recent FSBS reports. I have recommended for the patient to have follow up labs prior to the next office visit. The patient has been instructed to continue with current medications as previously directed, continue with regular FSBS monitoring to assure continued control of diabetes. Pt to call for any acute concerns, complaints, or if the blood glucose readings are starting to become less controlled. However, potential side effects w metformin, therefore, will decrease dose to 1/ 2 pill twice daily and monitor symptoms of diarrhea and blood glucose levels pneumovac given today WOUND CARE EVALUATION KEEP BLISTER CLEAN AND DRY-COVER WITH GAUZE DRESSING USE BACTROBAN TO EXCORIATED SPOTS ON RIGHT LEG START DOXYCYCLINE TWICE DAILY ELEVATE LEGS WRAP WITH MARKIE BANDAGES-ON IN THE MORNING AND OFF AT BEDTIME FOLLOW UP IN 2 WEEKS . Blister of right lower leg-fluids removed with #27 gauze needle and compression dressing applied-refer to wound care for evaluation and management- patient is at high risk of developing large ulcer due to diabetes, noncompliance and poor hygiene. Rash right leg-start oral abx and bactroban as directed Odgrh-lpjghyhbahpi-aic markie wraps, elevate leg, and again instructed patient to cut back on pop and salty foods. . Headache-slurred speech -frequent falls and hit head this morning -will obtain STAT CT head to evaluate for acute abnormalities Hypotension-dehydration -patient sent for outpatient IVF DM-blood sugar 73 mg/dl today in the office-monitor closely Pansinusitis-rx for cefdinir and flagyl sent to patient's pharmacy and instructed on use Repeated falls-patient is unable to care for herself -discussed with patient and her son, Ellis, that she is unable to care for herself and needs assisted living -Ellis is in contact with [facility] -recommend she stay at Ellis's house until she can move into [facility]. . Edema - pt has been advised to elevate legs to prevent dependent edema, compression has been recommended to help to naturally decrease peripheral edema. Diuretic use has been discussed and pt has been instructed in appropriate use of such medication as necessary to further attempt to reduce peripheral edema. Hypertension - well controlled - continue with current medications, continue with no added salt diet. Pt has been encouraged to exercise daily. The pt has been advised to call the office if there are any acute concerns about change in blood pressure readings at home. Anxiety - the patient has uncontrolled anxiety and will benefit from an SSRI on a daily basis to attempt control of the symptoms of anxiety (tachycardia, overwhelming sensations, stress, insomnia, etc). I also believe that the patient will benefit from very low dose of prn benzodiazepine. Pt is aware of the risks and benefits of treament with the above medications. Call if symptoms uncontrolled with medications as her recently diagnosed with lymphoma. INCREASE WATER INTAKE AND PROTEIN INTAKE CUT BACK ON SODA, SALTY FOODS, FAST FOODS AND SWEETS/CANDY/DESSERTS . Hypertension - well controlled - continue with current medications, continue with no added salt diet. Pt has been encouraged to exercise daily. The pt has been advised to call the office if there are any acute concerns about change in blood pressure readings at home. Diabetes Mellitus - I have recommended for the patient to have follow up labs prior to the next office visit. The patient has been instructed to continue with current medications as previously directed, continue with regular FSBS monitoring to assure continued control of diabetes. Pt to call for any acute concerns, complaints, or if the blood glucose readings are starting to become less controlled. Edema - pt has been advised to elevate legs to prevent dependent edema, compression has been recommended to help to naturally decrease peripheral edema. Diuretic use has been discussed and pt has been instructed in appropriate use of such medication as necessary to further attempt to reduce peripheral edema. Dysuria-check UA Toprol XL increased to 100mg po q a.m. and 75mg po q p.m. Monitor your blood pressure at home and record. Bring in your readings to your next appointment, or as directed. Call for chest pain, shortness of breath, headaches, or other concerns. . Hypertension - uncontrolled - the patient's medications have been modified as documented in the visit note. The patient has been counseled to cut back on salt in diet for a no added salt diet, low fat diet, start an exercise program with low weight bearing exercises and higher aerobic activity for heart health. The patient is to check blood pressure readings as an outpatient and either fax , call, or email the readings to the office next week for practicioner to review. The pt is to call for acute concerns. Recommend cardiac clearance before knee surgery. Edema - pt has been advised to elevate legs to prevent dependent edema, compression has been recommended to help to naturally decrease peripheral edema. Diuretic use has been discussed and pt has been instructed in appropriate use of such medication as necessary to further attempt to reduce peripheral edema. Pt has been instructed to stop eating soups because they have a lot of sodium in the soup. Pt is to stop eating canned veggies because they cause worsening edema. Pt has also been instructed to stop eating fast food due to worsening edema. PT HAS BEEN INSTRUCTED TO STOP EATING ANY CANNED FOODS. PT HAS BEEN INSTRUCTED TO STOP EATING ANY FAST FOODS. PT NEEDS TO BE ON A HEALTHY - FRESH FOODS DIET - FRESH VEGGIES, FRESH FRUITS, COOKED CHICKEN, BEEF, AVOID EXCESSIVE SALT. SALT RESTRICTION TO 2 GRAMS OF SODIUM IN A DAY. FOR THE NEXT 2 DAYS, MONAE IS TO TAKE 40MG OF LASIX IN THE MORNING AND 40MG IN THE AFTERNOON, THEN PT IS TO GO BACK TO 40MG IN MORNING AND 20MG IN THE AFTERNOON.. Diabetes Mellitus - Uncontrolled - per recent FSBS reports. I have recommended for the patient to have follow up labs prior to the next office visit. The patient has been instructed to continue with current medications as previously directed, continue with regular FSBS monitoring to assure continued control of diabetes. Pt to call for any acute concerns, complaints, or if the blood glucose readings are starting to become less controlled. I have recommended for the patient to follow more strictly to the diabetic diet as discussed in clinic to allow for greater blood glucose control. Dyspnea - due to edema/likley some pulmonary edema due to pt's dietary indescretions and lack of following her asthma action gee. Edema - pt has been advised to elevate legs to prevent dependent edema, compression has been recommended to help to naturally decrease peripheral edema. Diuretic use has been discussed and pt has been instructed in appropriate use of such medication as necessary to further attempt to reduce peripheral edema. Pt has been instructed to stop eating soups because they have a lot of sodium in the soup. Pt is to stop eating canned veggies because they cause worsening edema. Pt has also been instructed to stop eating fast food due to worsening edema. PT HAS BEEN INSTRUCTED TO STOP EATING ANY CANNED FOODS. PT HAS BEEN INSTRUCTED TO STOP EATING ANY FAST FOODS. PT NEEDS TO BE ON A HEALTHY - FRESH FOODS DIET - FRESH VEGGIES, FRESH FRUITS, COOKED CHICKEN, BEEF, AVOID EXCESSIVE SALT. SALT RESTRICTION TO 2 GRAMS OF SODIUM IN A DAY. FOR THE NEXT 2 DAYS, MONAE IS TO TAKE 40MG OF LASIX IN THE MORNING AND 40MG IN THE AFTERNOON, THEN PT IS TO GO BACK TO 40MG IN MORNING AND 20MG IN THE AFTERNOON. . UA-sent for culture . Joint Injection-left SI joint - Pt was given post - injection instructions. The pt has been advised to use antiinflammatories post injection today, ice to the injected site, call if redness, warmth, or increased pain occurs at the site of injection. . Left wrist pain-recent fall-xray left wrist Open wound of right leg-debrided today in the office-instructed on wound care- follow up as directed. Call with any questions, concerns, or worsening symptoms. Patient verbalized understanding of plan. Labs and UA . Hypertension - well controlled - continue with current medications, continue with no added salt diet. Pt has been encouraged to exercise daily. The pt has been advised to call the office if there are any acute concerns about change in blood pressure readings at home. DM-patient is seeing Dr Raines and noncompliant with treatment-i have discussed Dr Raines's treatment plan with Monae and oJse today -recommend they discuss short actin insulins with the pharmacy and Dr Raines in attempt to find one that is affordable for them. Patient and her both verbalized understanding. Dysuria- UA positive- will culture urine Low back pain- recommend patient schedule appt with pain specialist for injections -also recommend PT but patient is not willing Anxiety-chronic -plan to decrease xanax to twice daily as needed #60 with next refill check UA . Dysuria-urinary incontinence-culture urine HTN-elevated today-monitor at home -follow up with ambulette driver INCREASE LEVEMIR TO 25 UNITS TWICE DAILY-IF BLOOD SUGARS STILL OVER 200, INCREASE TO 30 UNITS IN THE MORNING AND CONTINUE 25 UNITS IN THE EVENING. . Diabetes Mellitus - Uncontrolled - per recent FSBS reports. I have recommended for the patient to have follow up labs prior to the next office visit. The patient has been instructed to continue with current medications as previously directed, continue with regular FSBS monitoring to assure continued control of diabetes. Pt to call for any acute concerns, complaints, or if the blood glucose readings are starting to become less controlled. I have recommended for the patient to follow more strictly to the diabetic diet as discussed in clinic to allow for greater blood glucose control. Chronic Depression and anxiety - the pt has symptoms of chronic anxiety and depression that have been fairly well controlled since the last office visit. The pt has expected periods of exacerbation with abatement of the symptoms with change in situational exposure. No change in current medications. Chronic Pain Syndrome - pt has chronic pain - has been maintained on current medications, has not sought out other medications, only uses PRN pain medications as directed, and understands the consequences of over-medication. . Hypertension - well controlled - continue with current medications, continue with no added salt diet. Pt has been encouraged to exercise daily. The pt has been advised to call the office if there are any acute concerns about change in blood pressure readings at home. Edema - pt has been advised to elevate legs to prevent dependent edema, compression has been recommended to help to naturally decrease peripheral edema. Diuretic use has been discussed and pt has been instructed in appropriate use of such medication as necessary to further attempt to reduce peripheral edema. Diabetes Mellitus - I have recommended for the patient to have follow up labs prior to the next office visit. The patient has been instructed to continue with current medications as previously directed, continue with regular FSBS monitoring to assure continued control of diabetes. Pt to call for any acute concerns, complaints, or if the blood glucose readings are starting to become less controlled. I have recommended for the patient to follow more strictly to the diabetic diet as discussed in clinic to allow for greater blood glucose control. RICE - Rest Ice Compression (knee brace) Elevation . Left knee pain - pt has been on prednisone intermittently - will X-Ray left knee - RICE - Rest Ice Compression (knee brace) Elevation - The pt is to use prn antiinflammatories to manage acute pain. The patient is to call the office if the pain is worsening or does not improve. Pt states that if she needs referred to someone she would like to go back to Dr. Cooper who scoped her knees previously. right great toe - healing wound, cracked toenail - will refer to Dr. Mejia . Open wound of pfj-cpjywmgj-botghdpl with dressing changes as directed-call for increase redness, drainage, warmth, etc. Follow up as instructed Edema - pt has been advised to elevate legs to prevent dependent edema, compression has been recommended to help to naturally decrease peripheral edema. Diuretic use has been discussed and pt has been instructed in appropriate use of such medication as necessary to further attempt to reduce peripheral edema. . Diabetes Mellitus - controlled - per recent FSBS reports. I have recommended for the patient to have follow up labs prior to the next office visit. The patient has been instructed to continue with current medications as previously directed, continue with regular FSBS monitoring to assure continued control of diabetes. Pt to call for any acute concerns, complaints, or if the blood glucose readings are starting to become less controlled. Sinusitis - Pt has acute infection - pain in face, maxillary region, Pt informed to use decongestant, RX given to patient, sinus rinses also recommended. Call if symptoms do not show improvement. Fibromyalgia - pt has been counseled about healthy diet, exercise, and adequate rest in the evening/nighttime for optimal health and improvement of the fibromyalgia symptoms. Pt is to use medication for pain control and symptom management sparingly. . Open wound right aqz-gqujka-ucin if opens up Edema - pt has been advised to elevate legs to prevent dependent edema, compression has been recommended to help to naturally decrease peripheral edema. Diuretic use has been discussed and pt has been instructed in appropriate use of such medication as necessary to further attempt to reduce peripheral edema. . Xztynub-xyxzufrjx-mten head injury on 12/05-did not go to ER-patient sent for STAT CT scan of head-schedule appt with Dr Dyer Adrenal insufficiency-patient suddenly stopped prednisone-instructed patient to restart and taper prednisone as directed Rib dhko-mtkyw-staxlf fall-xray ribs START CHECKING BLOOD SUGARS!!!! BRING LOG TO YOUR APPTOINTMENT IN 3 WEEKS . Diabetes Mellitus - Uncontrolled - per recent FSBS reports. I have recommended for the patient to have follow up labs prior to the next office visit. The patient has been instructed to continue with current medications as previously directed, continue with regular FSBS monitoring to assure continued control of diabetes. Pt to call for any acute concerns, complaints, or if the blood glucose readings are starting to become less controlled. I have recommended for the patient to follow more strictly to the diabetic diet as discussed in clinic to allow for greater blood glucose control. Hypertension - well controlled - continue with current medications, continue with no added salt diet. Pt has been encouraged to exercise daily. The pt has been advised to call the office if there are any acute concerns about change in blood pressure readings at home. Chronic Depression and anxiety - the pt has symptoms of chronic anxiety and depression that have been fairly well controlled since the last office visit. The pt has expected periods of exacerbation with abatement of the symptoms with change in situational exposure. No change in current medications. Hypothyroidism - pt with chronic hypothyroidism, continue with current medication, will monitor pt to signs or symptoms of lack of adequate supplementation. Pt is to continue with current dose of medication unless directed otherwise. Check labs at regular intervals wither q 3 months or q 6 months based on previous levels of control. Obesity - chronic issue with this patient. The pt has been counseled about diet changes, calorie restriction, and need to exercise. Pt will RTC in one month for weight check. Compression hose-RX provided Labs today Lasix and KCL-RX sent to patient's pharmacy . Edema - uncontrolled swelling. I have informed the patient of ways to naturally decrease the swelling in their lower legs - cut back on salt to 2 - 3 grams/day, the lower the sodium content of food, the healthier and less potential for swelling, however don't completely cut all sodium from diet. Pt was also counseled to elevate lower legs and/or use compression socks from toes to thighs Hypertension - well controlled - continue with current medications, continue with no added salt diet. Pt has been encouraged to exercise daily. The pt has been advised to call the office if there are any acute concerns about change in blood pressure readings at home. . Diabetes Mellitus - controlled - per recent FSBS reports. I have recommended for the patient to have follow up labs prior to the next office visit. The patient has been instructed to continue with current medications as previously directed, continue with regular FSBS monitoring to assure continued control of diabetes. Pt to call for any acute concerns, complaints, or if the blood glucose readings are starting to become less controlled. Depression - uncontrolled - Pt has been counseled about the diagnosis of depression, the potential causes, and risks associated with the diagnosis. The pt denies suicidal ideation, or plans. The patient has been counseled about treatment options, and understands the risks associated with treatment of depression, as well as the risks associated with NOT treating the depression. I believe the pt will benefit from medical intervention and an antidepressant has been appropriately prescribed for this patient. Increase effexor to 75 mg in AM and 37.5mg at bedtime x 3 weeks, then start on 150mg tablet that has been sent to the pharmacy. Ulcer of toe - continue with topical antibiotics as previously directed, return to clinic as previously directed, call for acute change in symptoms, worsening redness, warmth, discharge. Take Levemir 16 units every night . Hypertension - well controlled - continue with current medications, continue with no added salt diet. Pt has been encouraged to exercise daily. The pt has been advised to call the office if there are any acute concerns about change in blood pressure readings at home. Diabetes Mellitus - I have recommended for the patient to have follow up labs prior to the next office visit. The patient has been instructed to continue with current medications as previously directed, continue with regular FSBS monitoring to assure continued control of diabetes. Pt to call for any acute concerns, complaints, or if the blood glucose readings are starting to become less controlled. Wound of right great toe-refer to wound care INCREASE LEVEMIR TO 20 UNITS IN THE MORNING AND 15 UNITS AT NIGHT X 1 WEEK THEN INCREASE LEVEMIR TO 20 UNITS TWICE DAILY USE BIOTENE MOUTH WASH FOR DRY MOUTH RETURN IN 1 WEEK FOR VAGINAL EXAM BRING BLOOD SUGAR LOG CHECK LABS AND UA . Diabetes Mellitus - Uncontrolled - per recent FSBS reports. I have recommended for the patient to have follow up labs prior to the next office visit. The patient has been instructed to continue with current medications as previously directed, continue with regular FSBS monitoring to assure continued control of diabetes. Pt to call for any acute concerns, complaints, or if the blood glucose readings are starting to become less controlled. I have recommended for the patient to follow more strictly to the diabetic diet as discussed in clinic to allow for greater blood glucose control. VWA-jbmvlzigrr-vf changes in medications at this time. Dysuria-UA negative-needs pelvic exam due to pt c/o vaginal discharge Labs today- CBC, CMP, HgbA1C Dr. Shelley referral for back pain and potential injections X-ray neck and right shoulder Refill hydrocodone . Hypertension - elevated today-monitor at home- continue with current medications, continue with no added salt diet. Pt has been encouraged to exercise daily. The pt has been advised to call the office if there are any acute concerns about change in blood pressure readings at home. Diabetes Mellitus - I have recommended for the patient to have follow up labs prior to the next office visit. The patient has been instructed to continue with current medications as previously directed, continue with regular FSBS monitoring to assure continued control of diabetes. Pt to call for any acute concerns, complaints, or if the blood glucose readings are starting to become less controlled. Neck pain-right shoulder pain-xrays today Chronic low back pain-refer to Dr Shelley for possible injections Rash-under breasts-refill nystatin . Open wound of leg-debrided and cleaned wound today in the office and instructed patient on wound care-needs to keep clean at all time- return Monday for quick look at her leg. If redness persists, will start on abx. Patient verbalized understanding of plan. Hypertension - uncontrolled - The patient has been counseled to cut back on salt in diet for a no added salt diet, low fat diet, start an exercise program with low weight bearing exercises and higher aerobic activity for heart health. The patient is to check blood pressure readings as an outpatient and either fax , call, or email the readings to the office next week for practicioner to review. The pt is to call for acute concerns. RX WRITTEN FOR 8 DAYS OF CARTIA XT AND INSTRUCTED HER TO RESTART IT PREVIOSLY DIRECTED AND NOT TO STOP WITHOUT NOTIFIYING US. Edema - pt has been advised to elevate legs to prevent dependent edema, compression has been recommended to help to naturally decrease peripheral edema. Diuretic use has been discussed and pt has been instructed in appropriate use of such medication as necessary to further attempt to reduce peripheral edema. AGAIN INSTRUCTED PATIENT TO CUT OUT SALTY FOODS AND DRINKS. REPEAT LABS IN 2 WEEKS. . Edema - pt has been advised to elevate legs to prevent dependent edema, compression has been recommended to help to naturally decrease peripheral edema. Diuretic use has been discussed and pt has been instructed in appropriate use of such medication as necessary to further attempt to reduce peripheral edema. Diabetes Mellitus - Uncontrolled - per recent FSBS reports. I have recommended for the patient to have follow up labs prior to the next office visit. The patient has been instructed to continue with current medications as previously directed, continue with regular FSBS monitoring to assure continued control of diabetes. Pt to call for any acute concerns, complaints, or if the blood glucose readings are starting to become less controlled. I have recommended for the patient to follow more strictly to the diabetic diet as discussed in clinic to allow for greater blood glucose control. MAKE APPONTMENT FOR INSTRUCTIONS TO START BYETTA Hypohyroidism-increase to 88mcg daily Low back pain- the patient was instructed in appropriate posture, need for weight loss to alleviate abdominal obesity that is worsening the patient's back pain.. The pt is to use prn antiinflammatories to manage acute pain. The patient is to call the office if the pain is worsening or does not improve. KEEP FOLLOW UP APPOINTMENT WITH [facility]. . ADMIT FROM CLINIC TO HOSPITAL - PT IS ACUTELY ILL, REQUIRES HOSPITALIZATION. THE PATIENT HAS BEEN EVALUATED IN CLINIC AND THIS STANDS THE HOSPITAL HISTORY AND PHYSICAL EXAMINATION. THE PATIENT HAS BEEN SENT TO THE HOSPITAL WITH WRITTEN ORDERS FOR TREATMENT AND EVALUATION OF THE ACUTE ILLNESS. Confusion and falls - concern for potential intracranial issue due to her increased confusion after her fall - - will admit, check CT of head. Will check labs - see if pt has electrolyte abnormality, or UTI causing the confusion. Check blood cultures. DM and HTN - monitor blood pressure and blood glucose levels. Tachycardia - uncontrolled - will consult her primary ambulette driver for assistance with control her her heart rate. Ulcer of toe - continue with topical antibiotics as previously directed, return to clinic as previously directed, call for acute change in symptoms, worsening redness, warmth, discharge. . Edema--recommend patient be admitted for further work up and treatment-patient does not want admitted at this time-called Dr Bautista in to evaluate patient and he advised patient to increase lasix-take 40mg this afternoon. Instructed patient to go to ER if symptoms do not improve after extra dose of lasix. Labs drawn today in the office and will call patient with results.Patient and verbalized understanding of plan. VZR-gmrasicisuq-lgsnc labs-monitor blood pressure and heart rate closely- recommend ER if symptoms do not improve. . Patient presented with acute symptoms of stroke. Accompanied to ER for emergent evaluation. . Patient presented with acute symptoms of stroke. Accompanied to ER for emergent evaluation. Holter monitor x 48 hours. You will go to the [facility] on August 14 at 1:30pm to have it put on. You appt here Monday is at 3:30pm. 1 liter Normal saline IV today at the hospital. Continue your blood pressure medications for the next week-except HOLD LISINOPRIL/HCTZ I sent a prescription for cipro and flagyl to [facility]. Start it today. . Sinusitis - Pt has acute infection - pain in face, maxillary region, Pt informed to use decongestant, RX given to patient, sinus rinses also recommended. Call if symptoms do not show improvement. Plan for cipro and flagyl. Tachycardia-plan to check labs as well as EKG today at the hospital. Will schedule patient for holter monitor as well. Instructed patient to take her medications as prescribed except HOLD LISINOPRIL/HCTZ for now. Monitor blood pressure and pulse and call with any concerns. Plan for IVF at the hospital today. Anxiety - the patient has uncontrolled anxiety and will benefit from an SSRI on a daily basis to attempt control of the symptoms of anxiety (tachycardia, overwhelming sensations, stress, insomnia, etc). I also believe that the patient will benefit from very low dose of prn benzodiazepine. Pt is aware of the risks and benefits of treament with the above medications. Sciatica- exercises discussed with the patient, pt to continue with antiinflammatories. Pt is to call if the symptoms do not improve or if they worsen. Plan for demerol injection today at the hospital. CHECK LABS INCLUDING UA . Shingles-rash scabbed-no further treatment indicated-patient to call if pain uncontrolled N/V-check labs including UA DM-check labs today Thrush-RX for nystatin [place] balm over the counter for the knee. take Tylenol over the counter. Will start on Doxycycline 1 pill in the morning and 1 pill at night. Will send Phenergan for nausea. you can do breathing treatments every 4-6 hours. . Bronchitis - acute case of bronchitis identified. Pt has been given antibiotics, breathing treatments as appropriate, and pt has been instructed to call if symptoms are not improved, or if symptoms acutely worsen. Diabetes Mellitus - non-compliant - I have recommended for the patient to have follow up labs prior to the next office visit. The patient has been instructed to continue with current medications as previously directed, continue with regular FSBS monitoring to assure continued control of diabetes. Pt to call for any acute concerns, complaints, or if the blood glucose readings are starting to become less controlled. I have recommended for the patient to follow more strictly to the diabetic diet as discussed in clinic to allow for greater blood glucose control. Hypertension - uncontrolled - the patient's medications have been modified as documented in the visit note. The patient has been counseled to cut back on salt in diet for a no added salt diet, low fat diet, start an exercise program with low weight bearing exercises and higher aerobic activity for heart health. The patient is to check blood pressure readings as an outpatient and either fax , call, or email the readings to the office next week for practitioner to review. The pt is to call for acute concerns. . Diabetes Mellitus - controlled - per recent FSBS reports. I have recommended for the patient to have follow up labs prior to the next office visit. The patient has been instructed to continue with current medications as previously directed, continue with regular FSBS monitoring to assure continued control of diabetes. Pt to call for any acute concerns, complaints, or if the blood glucose readings are starting to become less controlled. Victoza samples provided. Edema - pt has been advised to elevate legs to prevent dependent edema, compression has been recommended to help to naturally decrease peripheral edema. Diuretic use has been discussed and pt has been instructed in appropriate use of such medication as necessary to further attempt to reduce peripheral edema. Patient is noncompliant with treatment-AGAIN INSTRUCTED PATIENT TO WEAR COMPRESSION STOCKINGS-ON IN THE A.M. AND OFF AT H.S. I HAVE ALSO REITERATED THE IMPORTANCE OF TAKING MEDICATION EVERY DAY AND NOT MISSING DOSES OF MEDICATIONS. MARKIE WRAPS APPLIED FROM KNEES TODAY TOES TODAY IN THE OFFICE. PATIENT AND VERBALIZED UNDERSTANDING OF PLAN. Cellulitis of right leg- Started levaquin for sinus infection. Continue antibiotic for cellulitis as well. Follow up in 10 days. Call sooner if area opens up. . Edema - pt has been advised to elevate legs to prevent dependent edema, compression has been recommended to help to naturally decrease peripheral edema. Diuretic use has been discussed and pt has been instructed in appropriate use of such medication as necessary to further attempt to reduce peripheral edema. Ebbcsuhfah-vmpaztty-it change in treatment-continue compression hose-decrease salt/sodium in diet-call if symptoms worsen or do not resolve Qqvjrnfhu-ahyhjap-eugtgtyk nasonex to twice daily as directed pt to start on LEVEMIR 5 units at bedtime, increase by 3 units every 3 days with a goal of a average blood glucose level of 170. Pt is not to increase her LEVEMIR above 20 units. Monae is to have an appt with a FSBS report in 2 weeks. Increase victoza to 1.8 units daily. . Diabetes Mellitus - Uncontrolled - per recent FSBS reports. I have recommended for the patient to have follow up labs prior to the next office visit. The patient has been instructed to continue with current medications as previously directed, continue with regular FSBS monitoring to assure continued control of diabetes. Pt to call for any acute concerns, complaints, or if the blood glucose readings are starting to become less controlled. I have recommended for the patient to follow more strictly to the diabetic diet as discussed in clinic to allow for greater blood glucose control. pt to start on LEVEMIR 5 units at bedtime, increase by 3 units every 3 days with a goal of a average blood glucose level of 170. Pt is not to increase her LEVEMIR above 20 units. Monae is to have an appt with a FSBS report in 2 weeks. Increase victoza to 1.8 units daily. . Chronic sinusitis-rx for gentamicin nasal spray that [place] compounds Diabetes Mellitus -patient forgot bs log- I have recommended for the patient to have follow up labs prior to the next office visit. The patient has been instructed to continue with current medications as previously directed, continue with regular FSBS monitoring to assure continued control of diabetes. Pt to call for any acute concerns, complaints, or if the blood glucose readings are starting to become less controlled. I have recommended for the patient to follow more strictly to the diabetic diet as discussed in clinic to allow for greater blood glucose control. Hordeolum -much improved-continue abx drops until symptoms resolved-return to clinic if symptoms do not resolve CHECK CMP TODAY . Edema - pt has been advised to elevate legs to prevent dependent edema, compression has been recommended to help to naturally decrease peripheral edema. Diuretic use has been discussed and pt has been instructed in appropriate use of such medication as necessary to further attempt to reduce peripheral edema. Wound of leg-culture today in the office-instructed on wound care and follow up in 10 days, sooner if needed. DM-blood sugars uncontrolled-discussed with patient the need to strictly adhere to the diabetic diet. Instructed her to bring in her blood sugar logs to her next appointment for review. Patient verbalized understanding. mammogram appt with Dr Pavon for colonscopy UA . Medicare Exam - today we discussed the patients past history, immunizations, preventative exams/evaluations - colonoscopy, fecal occult blood testing, routine labs for renal function, glucose, cholesterol, osteoporosis evaluations , cardiovascular testing and cancer screenings. We have also discussed mental health and the signs/symptoms of depression. The patient was advised of home safety evaluations and the need to make sure that as the aging process continues , we need to be aware of different ways to make the home a safer place to reside. The patient has also been counseled that exercise is necessary - and of utmost importance as we age to help decrease fall risk and to maintain independence in the home. Today we discussed the need for the patient to create paperwork for Advanced directives as well as for the patient to provide this office with a copy of her DOPA paperwork for health care surrogate. mammogram appt with Dr Pavon for colonscopy UA . Medicare Exam - today we discussed the patients past history, immunizations, preventative exams/evaluations - colonoscopy, fecal occult blood testing, routine labs for renal function, glucose, cholesterol, osteoporosis evaluations , cardiovascular testing and cancer screenings. We have also discussed mental health and the signs/symptoms of depression. The patient was advised of home safety evaluations and the need to make sure that as the aging process continues , we need to be aware of different ways to make the home a safer place to reside. The patient has also been counseled that exercise is necessary - and of utmost importance as we age to help decrease fall risk and to maintain independence in the home. Today we discussed the need for the patient to create paperwork for Advanced directives as well as for the patient to provide this office with a copy of her DOPA paperwork for health care surrogate. YOU NEED TO BE DOING YOUR DUONEB FOUR TIMES DAILY ORDERED YOU NEED TO BE DOING THE BUDESONIDE/PULMICORT TWICE DAILY. DO NO SKIP DOSES . Asthma Exacerbation - Asthma is a chronic problem for this patient, however, the pt is experiencing an acute exacerbation of the chronic Asthma symptoms. Pt is to receive appropriate treatment as an out patient, but the pt is aware that if symptoms worsen or do not improve, to call ANA LAURA for instructions, or go to the EMERGENCY ROOM if the symptoms are beyond acute control with rescue medications. We have reviewed chronic treatment strategy, symptom control, and plans for acute exacerbations. No changes today to the current treatment plan as the patient is stable, monitor for acute changes. Edema - pt has been advised to elevate legs to prevent dependent edema, compression has been recommended to help to naturally decrease peripheral edema. Diuretic use has been discussed and pt has been instructed in appropriate use of such medication as necessary to further attempt to reduce peripheral edema. Check labs-cbc, cmp, hgb a1c. We will call you with the results. Follow up in 10 days for wound check Monitor your blood pressure at home and record. Bring in your readings to your next appointment, or as directed. Call for chest pain, shortness of breath, headaches, or other concerns. . Cellulitis - continue with oral antibiotics as previously directed, return to clinic as previously directed, call for acute change in symptoms, worsening redness, warmth, discharge. Culture of wound today in the office. Diabetes Mellitus - I have recommended for the patient to have follow up labs prior to the next office visit. The patient has been instructed to continue with current medications as previously directed, continue with regular FSBS monitoring to assure continued control of diabetes. Pt to call for any acute concerns, complaints, or if the blood glucose readings are starting to become less controlled. I have recommended for the patient to follow more strictly to the diabetic diet as discussed in clinic to allow for greater blood glucose control. Hypertension - uncontrolled - The patient has been counseled to cut back on salt in diet for a no added salt diet, low fat diet, start an exercise program with low weight bearing exercises and higher aerobic activity for heart health. The patient is to check blood pressure readings as an outpatient and return in 2 weeks for review. The pt is to call for acute concerns. Edema - pt has been advised to elevate legs to prevent dependent edema, compression has been recommended to help to naturally decrease peripheral edema. Diuretic use has been discussed and pt has been instructed in appropriate use of such medication as necessary to further attempt to reduce peripheral edema. Check labs. . Hypertension - well controlled - continue with current medications, continue with no added salt diet. Pt has been encouraged to exercise daily. The pt has been advised to call the office if there are any acute concerns about change in blood pressure readings at home. Chronic Atrial fibrillation - rate controlled - no change in current medication. Anxiety and Depression - no change in current management - refilled medication today - discussed the need for the patient to consider assisted living facility due to her inability to care for herself. She was also advised that she should NOT drive, she has not driven in 5 months and she would not be safe behind the wheel of a car. Her cousins were with her at the [facility] today and they all agreed that she should not be driving and that she needs to be in assisted living. . ER follow up - Dr. Motta in to see pt - pt was given a script for a [employer] prednisone taper - pt has not started the taper yet due to being nervous about side effects - Dr. Motta explained to pt the need for the medication and what an adrenal crisis is - will give script for a slow prednisone taper - 60mg daily for 1 week, then 50mg daily for 1 week, then 40mg daily for 1 week, then 30mg daily for 1 week, then 20mg daily for 1 week, then 10mg daily for 1 week - will closely monitor pt. . UA negative STOP THE PROBIOTICS START GAS X DULCOLAX SUPPOSITORY COLACE 1 TAB DAILY . Constipation - uncontrolled - I have discussed with the patient the need for adequate fiber and water intake to facilitate soft, easily passed stools. The pt noted understanding of our conversation. I have given the patient a recipe for "power pudding" - equal parts, bran flakes, prune juice, and apple sauce. The pt is to call if symptoms not improved on this regimen. . Edema-significantly improved- pt has been advised to elevate legs to prevent dependent edema, compression has been recommended to help to naturally decrease peripheral edema. Diuretic use has been discussed and pt has been instructed in appropriate use of such medication as necessary to further attempt to reduce peripheral edema. Abdomoinal pain - history of diverticulitis, refer to Dr. Quintero for colonscopy. Discussed dietary modifications for diverticular disease. DM- I have recommended for the patient to have follow up labs prior to the next office visit. The patient has been instructed to continue with current medications as previously directed, continue with regular FSBS monitoring to assure continued control of diabetes. Pt to call for any acute concerns, complaints, or if the blood glucose readings are starting to become less controlled. Nasal spray- use twice daily, one spray per nostril twice daily, after 30 minutes, rinse out nose with saline spray.. Use opposite hand per nostril to spray in the nasal steroid allergy spray. Monitor your blood pressure at home and record. Bring in your readings to your next appointment, or as directed. Call for chest pain, shortness of breath, headaches, or other concerns.. Sinusitis - Pt has acute infection - pain in face, maxillary region, Pt informed to use decongestant, RX given to patient, sinus rinses also recommended. Recommend take start on probiotic while on antibiotics. Call if symptoms do not show improvement. Allergies - chronic - recommended pt to use allergy medication as prescribed. Pt has been counseled as the the appropriate use of the medication. Pt to call if allergy symptoms are not controlled with the medication. If using nasal spray, instructions as follows: Nasal spray- use twice daily, one spray per nostril twice daily, after 30 minutes, rinse out nose with saline spray.. Use opposite hand per nostril to spray in the nasal steroid allergy spray. Hypertension - uncontrolled - no change in medications today-patient is to monitor blood pressure and pulse at home and bring in readings next wee for review-if blood pressure remains elevated, we will adjust medications. The patient has been counseled to cut back on salt in diet for a no added salt diet , low fat diet, start an exercise program with low weight bearing exercises and higher aerobic activity for heart health. The patient is to check blood pressure readings as an outpatient and either fax , call, or email the readings to the office next week for practicioner to review. The pt is to call for acute concerns. . Sinusitis - Pt has acute infection - pain in face, maxillary region, Pt informed to use decongestant, RX given to patient, sinus rinses also recommended. Call if symptoms do not show improvement. Left lateral gaze impairment, diplopia - discussed with Dr. Motta - she is to make an appointment with her eye doctor ANA LAURA, and up date me of her symptoms tomorrow. Pt is to notify clinic of go to the ER with any acute changes, questions or concerns. Monitor your blood pressure at home and record. Bring in your readings to your next appointment, or as directed. Call for chest pain, shortness of breath, headaches, or other concerns.. Hypertension - The patient has been counseled to cut back on salt in diet for a no added salt diet, low fat diet, start an exercise program with low weight bearing exercises and higher aerobic activity for heart health. The patient is to check blood pressure readings as an outpatient and either fax , call, or email the readings to the office next week for practicioner to review. The pt is to call for acute concerns. MONITOR BLOOD PRESSURE AT HOME AND BRING IN READINGS FOR REVIEW. TAKE AN EXTRA LASIX AT HOME TODAY AND CALL TOMORROW. Ulcer of leg-continue santyl-follow up in 10 days Callus of toe-debrided today in the office-keep clean-follow up in 10 days-call for s/s of infection Urinary urgency-check UA Hypothyroidism-check labs . Diabetes Mellitus - controlled - per recent FSBS reports. I have recommended for the patient to have follow up labs prior to the next office visit. The patient has been instructed to continue with current medications as previously directed, continue with regular FSBS monitoring to assure continued control of diabetes. Pt to call for any acute concerns, complaints, or if the blood glucose readings are starting to become less controlled. Joint Injection - Pt was given post - injection instructions. The pt has been advised to use antiinflammatories post injection today, ice to the injected site, call if redness, warmth, or increased pain occurs at the site of injection. Sciatica- exercises discussed with the patient, pt to continue with antiinflammatories. Pt is to call if the symptoms do not improve or if they worsen. Yeast infection-rx for diflucan-call if symptoms do not resolve . Open wound of right leg-debrided today in the office- instructed on wound care-follow up as directed. Call with any questions, concerns, or worsening symptoms. Patient verbalized understanding of plan. . negative ua . Sinusitis - Pt has acute infection - pain in face, maxillary region, Pt informed to use decongestant, RX given to patient, sinus rinses also recommended. Call if symptoms do not show improvement. Allergies - chronic - recommended pt to use allergy medication as prescribed. Pt has been counseled as to the appropriate use of the medication. Pt to call if allergy symptoms are not controlled with the medication. If using nasal spray, instructions as follows: Nasal spray- use twice daily, one spray per nostril twice daily, after 30 minutes, rinse out nose with saline spray.. Use opposite hand per nostril to spray in the nasal steroid allergy spray. Low back pain-increased since fall 5/3-xray lumbar spine Right knee pain/swelling-fell 5/3-xray knee-recommend patient use walker at all times Pain uncontrolled-change to percocet as directed. Lactobacillus 1 po twice daily. Check labs today. Phenergan today in the office for nausea . N/V/D - discussed need to stay away from milk products while acutely ill with diarrhea and nausea and emesis as it may worsen the symptoms. Liquids initially until the nausea improves, then recommend to advance to bland diet for 1 day, then advance as tolerated. Phenergan injection today in the office and zofran as needed at home. Plan to check labs today as well as stool studies for cdiff. Instructed patient to call if symptoms do not improve, or if any worse Hypertension - patient has not taken her routine medications today-I have instructed patient to take medications at home today. The patient is to check blood pressure readings as an outpatient and either fax , call, or email the readings to the office next week for practicioner to review. The pt is to call for acute concerns. Diabetes Mellitus - patient not checking blood sugars-instructed patient to check blood sugars routinely especially if she is not feeling well. The patient has been instructed to continue with current medications as previously directed. Pt to call for any acute concerns, complaints, or if the blood glucose readings are starting to become less controlled. CONTINUE PROBIOTICS CHECK STOOL FOR CDIFF IF DIARRHEA DOES NOT RESOLVE CHECK LABS TODAY INCLUDING DIGOXIN LEVEL . COPD-recent hospitalization with pneumonia-symptoms improved-discussed continuous oxygen use at home-appt with Dr Odonnell tomorrow Afib-check digoxin level-patient just finished zpack Diarrhea-continue probiotics-check stool if diarrhea persists DM-bring log to next appt . Hypertension - well controlled - continue with current medications, continue with no added salt diet. Pt has been encouraged to exercise daily. The pt has been advised to call the office if there are any acute concerns about change in blood pressure readings at home. Diabetes Mellitus - I have recommended for the patient to have follow up labs prior to the next office visit. The patient has been instructed to continue with current medications as previously directed, continue with regular FSBS monitoring to assure continued control of diabetes. Pt to call for any acute concerns, complaints, or if the blood glucose readings are starting to become less controlled. Stye-left upper eyelid-rx sent to patient's pharmacy-follow up in the office in 1 week, sooner if symptoms worsen ADDENDUM: COPD - chronic problem for this patient- patient continues to wear oxygen at 3L per nasal cannula and benefits from therapy. We have reviewed chronic treatment strategy, symptom control, and plans for acute exacerbations. No changes today to the current treatment plan as the patient is stable, monitor for acute changes. . Hypertension - well controlled - continue with current medications, continue with no added salt diet. Pt has been encouraged to exercise daily. The pt has been advised to call the office if there are any acute concerns about change in blood pressure readings at home. Diabetes Mellitus - I have recommended for the patient to have follow up labs prior to the next office visit. The patient has been instructed to continue with current medications as previously directed, continue with regular FSBS monitoring to assure continued control of diabetes. Pt to call for any acute concerns, complaints, or if the blood glucose readings are starting to become less controlled. Stye-left upper eyelid-rx sent to patient's pharmacy-follow up in the office in 1 week, sooner if symptoms worsen . Blister of right leg-drained today in the office using sterile technique and #27g needle-pressure dressing applied to facilitate drainage of any additional fluid Edema - pt has been advised to elevate legs to prevent dependent edema, compression has been recommended to help to naturally decrease peripheral edema. Diuretic use has been discussed and pt has been instructed in appropriate use of such medication as necessary to further attempt to reduce peripheral edema. AGAIN, DISCUSSED LOW SODIUM DIET WITH MONAE-SHE CONTINUES TO DRINK POP, EAT CANNED FOODS, AND DINE OUT FREQUENTLY, IF NOT DAILY. AGAIN, RECOMMEND SHE CUT OUT POP COMPLETELY AND START READING FOODS LABELS. DISCUSSED HIGH SODIUM FOODS SUCH CANNED FOODS, FROZEN DINNERS, LUNCH MEAT, FAST FOODS, ETC. PATIENT VERBALIZED UNDERSTANDING. Diabetes Mellitus - controlled - per recent FSBS reports. I have recommended for the patient to have follow up labs prior to the next office visit. The patient has been instructed to continue with current medications as previously directed, continue with regular FSBS monitoring to assure continued control of diabetes. Pt to call for any acute concerns, complaints, or if the blood glucose readings are starting to become less controlled. Hypertension - well controlled - continue with current medications, continue with no added salt diet. Pt has been encouraged to exercise daily. The pt has been advised to call the office if there are any acute concerns about change in blood pressure readings at home. I HAVE AGAIN ADVISED MONAE NOT TO LET HER PILLS RUN OUT-SHE WAS OUT OF HER METOPROLOL FOR SEVERAL DAYS AND JUST RESTARTED YESTERDAY-HER SWELLING IS WORSE AND HER HEART RATE IS ELEVATED DUE TO NOT TAKING HER MEDICATIONS PRESCRIBED. I GAVE MONAE ANOTHER ORDER FOR BLOOD WORK-SHE WAS GIVEN AN ORDER AT HER LAST APPOINTMENT BUT STATES HER , JOSE, LOST IT. INSTRUCTED HER TO GET BLOOD WORK IN THE MORNING AND WE WILL CALL HER WITH THE RESULTS. . UA negative -no culture indicated . Hypertension - well controlled - continue with current medications, continue with no added salt diet. Pt has been encouraged to exercise daily. The pt has been advised to call the office if there are any acute concerns about change in blood pressure readings at home. Adrenal insufficiency-patient is back on steroid taper and doing better-will continue to monitor as i expect her headaches to improve with treatment . Right knee pain-patient to schedule appt with Dr Allison Garcia-right arm-concerned for shingles-RX for acyclovir provided and instructed on use-call if symptoms do not resolve or if any worse. . Hypertension - well controlled - continue with current medications, continue with no added salt diet. Pt has been encouraged to exercise daily. The pt has been advised to call the office if there are any acute concerns about change in blood pressure readings at home. Open wound of right leg-continue dressing changes as directed. Follow up in 2 weeks, or sooner if needed. Right knee pain-increase hydrocodone to 7.5mg/325mg every 6 hours as needed for pain. INCREASE LEVEMIR TO 25 UNITS IN THE MORNING AND 20 UNITS AT NIGHT call in 1 week with blood sugar readings . Vaginal dryness-poor hygiene-recommend patient start cleaning better- discussed proper hygiene and instructed patient to let me know if symptoms persist or do not resolve Diabetes Mellitus - Uncontrolled - per recent FSBS reports. I have recommended for the patient to have follow up labs prior to the next office visit. The patient has been instructed to continue with current medications as previously directed, continue with regular FSBS monitoring to assure continued control of diabetes. Pt to call for any acute concerns, complaints, or if the blood glucose readings are starting to become less controlled. I have recommended for the patient to follow more strictly to the diabetic diet as discussed in clinic to allow for greater blood glucose control. Monitor your blood pressure at home and record. Bring in your readings to your next appointment, or as directed. Call for chest pain, shortness of breath, headaches, or other concerns.. Diarrhea - recommended bland diet, low fat diet, start on probiotic, and rehydrate with gatorade-like product. Pt to call if feeling worse, diarrhea becomes bloody, or does not improve with above recommendations. Pt to call for acute worsening of stomach upset or stomach pain. RX for flagyl sent to patient' s pharmacy. Patient sent to the hospital for labs including stools for cdiff and a UA. Plan to hold metformin while acute episode of diarrhea persists and then restart as able. Recommend probiotic twice daily as well. Discussed ER if symptoms worsen. Patient and verbalized understanding. DM-monitor blood sugars closely as holding the metformin will likely increase her blood sugars-patient and verbalized understanding. Hypertension - The patient has been counseled to cut back on salt in diet for a no added salt diet, low fat diet, start an exercise program with low weight bearing exercises and higher aerobic activity for heart health. The patient is to check blood pressure readings as an outpatient and either fax , call, or email the readings to the office next week for practicioner to review. The pt is to call for acute concerns. . Hypertension - well controlled - continue with current medications, continue with no added salt diet. Pt has been encouraged to exercise daily. The pt has been advised to call the office if there are any acute concerns about change in blood pressure readings at home. Edema - uncontrolled swelling. I have informed the patient of ways to naturally decrease the swelling in their lower legs - cut back on salt to 2 - 3 grams/day, the lower the sodium content of food, the healthier and less potential for swelling, however don't completely cut all sodium from diet. Pt was also counseled to elevate lower legs and/or use compression socks from toes to thighs. Foreign body-left foot-continue abx-Dr. Mejia to perform I&D on Monday . Edema - pt has been advised to elevate legs to prevent dependent edema, compression has been recommended to help to naturally decrease peripheral edema. Diuretic use has been discussed and pt has been instructed in appropriate use of such medication as necessary to further attempt to reduce peripheral edema. Diabetes Mellitus - controlled - per recent FSBS reports. I have recommended for the patient to have follow up labs prior to the next office visit. The patient has been instructed to continue with current medications as previously directed, continue with regular FSBS monitoring to assure continued control of diabetes. Pt to call for any acute concerns, complaints, or if the blood glucose readings are starting to become less controlled. . Hypertension - well controlled - continue with current medications, continue with no added salt diet. Pt has been encouraged to exercise daily. The pt has been advised to call the office if there are any acute concerns about change in blood pressure readings at home. Yeast infection -improved-continue nystatin powder Hypothyroidism-check labs Anemia-check CBC . Cellulitis - continue with oral antibiotics as previously directed, return to clinic as previously directed, call for acute change in symptoms, worsening redness, warmth, discharge. Edema - pt has been advised to elevate legs to prevent dependent edema, compression has been recommended to help to naturally decrease peripheral edema. Diuretic use has been discussed and pt has been instructed in appropriate use of such medication as necessary to further attempt to reduce peripheral edema. . Sinusitis - continue with ciprofloxacin and start on corcidin HBP. Anxiety - start the xanax 0.5mg 1/2 pill twice daily. Monitor you blood sugars as directed at home, record, and bring to the office at your next appointment, or as directed. Monitor your blood sugars at different times throughout the day-fasting, 30 minutes before a meal, 2 hours after a meal, or bedtime are good times to monitor your blood sugars. . Lumbago-continue physical therapy-refill hydrocodone Diabetes Mellitus - I have recommended for the patient to have follow up labs prior to the next office visit. The patient has been instructed to continue with current medications as previously directed, continue with regular FSBS monitoring to assure continued control of diabetes. Pt to call for any acute concerns, complaints, or if the blood glucose readings are starting to become less controlled. I have recommended for the patient to follow more strictly to the diabetic diet as discussed in clinic to allow for greater blood glucose control. Edema - pt has been advised to elevate legs to prevent dependent edema, compression has been recommended to help to naturally decrease peripheral edema. Diuretic use has been discussed and pt has been instructed in appropriate use of such medication as necessary to further attempt to reduce peripheral edema. . Edema - pt has been advised to elevate legs to prevent dependent edema, compression has been recommended to help to naturally decrease peripheral edema. Diuretic use has been discussed and pt has been instructed in appropriate use of such medication as necessary to further attempt to reduce peripheral edema. Dyspnea - recommended pt to see new it service continuity supervisor [facility] for further evaluation and work-up. refer to Dr Raines increase levemir to 50 units in the morning and 45 at bedtime x 1 week then 50units BID . DM-very uncontrolled-refer to Dr Raines for management RIght shoulder and arm pain-fell 5 days ago-xray shoulder and arm Chronic sinusitis-RX for Dr Cervantes's compound gentamicin nasal spray . Edema - pt has been advised to elevate legs to prevent dependent edema, compression has been recommended to help to naturally decrease peripheral edema. Diuretic use has been discussed and pt has been instructed in appropriate use of such medication as necessary to further attempt to reduce peripheral edema. STOP DRINKING SODA, CUT BACK ON SALTY FOODS. Diabetes Mellitus -I have recommended for the patient to have follow up labs prior to the next office visit. The patient has been instructed to continue with current medications as previously directed, continue with regular FSBS monitoring to assure continued control of diabetes. Pt to call for any acute concerns, complaints, or if the blood glucose readings are starting to become less controlled. I have recommended for the patient to follow more strictly to the diabetic diet as discussed in clinic to allow for greater blood glucose control. Sciatica- exercises discussed with the patient, pt to continue with antiinflammatories. Pt is to call if the symptoms do not improve or if they worsen. the dose on 01/01/15 PM - take 1/2 pill - on 01/02/15 and 815/15 AM and PM take 1/2 pill twice daily, on 01/04/15 take 1/2 pill in the morning and no pill at night, then stop. . Cellulitis - continue with oral antibiotics as previously directed, return to clinic as previously directed, call for acute change in symptoms, worsening redness, warmth, discharge. Diabetes Mellitus - Uncontrolled - per recent FSBS reports. I have recommended for the patient to have follow up labs prior to the next office visit. The patient has been instructed to continue with current medications as previously directed, continue with regular FSBS monitoring to assure continued control of diabetes. Pt to call for any acute concerns, complaints, or if the blood glucose readings are starting to become less controlled. I have recommended for the patient to follow more strictly to the diabetic diet as discussed in clinic to allow for greater blood glucose control. - due to the patient's poor diet control - monitor FSBS at home, decrease eating out. pt is to take lasix 40mg in the morning and 20mg at noon x 1 week then 20mg bid thereafter. pt to start on prednisone rx from dr. odonnell - then when done with rx, the pt is to fill a taper. for which she is to taper over the next 3 months to off.. Edema - pt has been advised to elevate legs to prevent dependent edema, compression has been recommended to help to naturally decrease peripheral edema. Diuretic use has been discussed and pt has been instructed in appropriate use of such medication as necessary to further attempt to reduce peripheral edema. Edema - pt has been advised to elevate legs to prevent dependent edema, compression has been recommended to help to naturally decrease peripheral edema. Diuretic use has been discussed and pt has been instructed in appropriate use of such medication as necessary to further attempt to reduce peripheral edema. COPD EXACERBATION - COPD is a chronic problem for this patient, however, the pt is experiencing an acute exacerbation of the COPD. Pt is to receive appropriate treatment as an out patient, but the pt is aware that if symptoms worsen or do not improve, to call [facility] for instructions, or go to the EMERGENCY ROOM if the symptoms are beyond acute control with rescue medications. We have reviewed chronic treatment strategy, symptom control, and plans for acute exacerbations. No changes today to the current treatment plan as the patient is stable, monitor for acute changes. . Open wound of right leg-debrided today in the office- instructed on wound care-follow up as directed. Call with any questions, concerns, or worsening symptoms. Culture of wound today in the office-RX for abx sent to patient's pharmacy and instructed on use. Patient verbalized understanding of plan. INCREASE LEVEMIR TO 15 UNITS IN THE MORNING AND 10 UNITS IN THE EVENING X 1 WEEK THEN INCREASE TO 15 UNITS TWICE DAILY REPEAT TSH, FREE T4 IN 3 MONTHS START CYMBALTA 60MG DAILY . Chronic Depression and anxiety - the pt has symptoms of chronic anxiety and depression that have been fairly well controlled since the last office visit. The pt has expected periods of exacerbation with abatement of the symptoms with change in situational exposure. No change in current medications. PATIENT STOPPED EFFEXOR-DR LR RECOMMEND SWITCHING TO NON QT PROLONGING AGENT- RX FOR CYMBALTA 60MG DAILY PROVIDED AND INSTRUCTED ON USE. Hypothyroidism - pt with chronic hypothyroidism, continue with current medication, will monitor pt to signs or symptoms of lack of adequate supplementation. Pt is to continue with current dose of medication unless directed otherwise. Check labs at regular intervals wither q 3 months or q 6 months based on previous levels of control. Diabetes Mellitus - Uncontrolled - per recent FSBS reports. I have recommended for the patient to have follow up labs prior to the next office visit. The patient has been instructed to continue with current medications as previously directed, continue with regular FSBS monitoring to assure continued control of diabetes. Pt to call for any acute concerns, complaints, or if the blood glucose readings are starting to become less controlled. I have recommended for the patient to follow more strictly to the diabetic diet as discussed in clinic to allow for greater blood glucose control. . Cellulitis - continue with oral antibiotics as previously directed, return to clinic as previously directed, call for acute change in symptoms, worsening redness, warmth, discharge. Diabetes Mellitus - INSTRUCTED PATIENT TO KEEP LOG AND BRING IN 2 WEEKS FOR REVIEW. I have recommended for the patient to have follow up labs prior to the next office visit. The patient has been instructed to continue with current medications as previously directed, continue with regular FSBS monitoring to assure continued control of diabetes. Pt to call for any acute concerns, complaints, or if the blood glucose readings are starting to become less controlled. I have recommended for the patient to follow more strictly to the diabetic diet as discussed in clinic to allow for greater blood glucose control. Edema -PATIENT IS NON COMPLIANT WITH DIETARY RESTRICTIONS AND DOES NOT TAKE MEDICATIONS PRESCRIBED-AGAIN, I HAVE RECOMMENDED THAT SHE CUT BACK ON SODIUM AND TAKE THE MEDICATIONS EXACTLY PRESCRIBED. pt has been advised to elevate legs to prevent dependent edema, compression has been recommended to help to naturally decrease peripheral edema. Diuretic use has been discussed and pt has been instructed in appropriate use of such medication as necessary to further attempt to reduce peripheral edema. Hypertension - well controlled - continue with current medications, continue with no added salt diet. Pt has been encouraged to exercise daily. The pt has been advised to call the office if there are any acute concerns about change in blood pressure readings at home. . Medicare Exam - today we discussed the patients past history, immunizations, preventative exams/evaluations - colonoscopy, fecal occult blood testing, routine labs for renal function, glucose, cholesterol, osteoporosis evaluations, cardiovascular testing and cancer screenings. We have also discussed mental health and the signs/symptoms of depression. The patient was advised of home safety evaluations and the need to make sure that as the aging process continues, we need to be aware of different ways to make the home a safer place to reside. The patient has also been counseled that exercise is necessary - and of utmost importance as we age to help decrease fall risk and to maintain independece in the home. Today we discussed the need for the patient to create paperwork for Advanced directives as well as for the patient to provide this office with a copy of her DOP[employer] paperwork for health care surrogate. Will refer to Dr. Pavon for colonoscopy and Margarita Garvin for pelvic exam per patient request. Mammogram order faxed to scheduling and given to pt. Obesity - BMI 41. The pt has been counseled about diet changes, calorie restriction, and need to exercise. Pt will RTC in one month for weight check. Diarrhea - recommended bland diet, low fat diet, start on probiotic, and rehydrate with gatorade-like product. Pt to call if feeling worse, diarrhea becomes bloody, or does not improve with above recommendations. Pt to call for acute worsening of stomach upset or stomach pain. . Bronchitis - acute case of bronchitis identified. Pt has been given antibiotics, breathing treatments as appropriate, and pt has been instructed to call if symptoms are not improved, or if symptoms acutely worsen. . Sinusitis - Pt has acute infection - pain in face, maxillary region, Pt informed to use decongestant, RX given to patient, sinus rinses also recommended. Call if symptoms do not show improvement. Sacroilitis - back exercises discussed with the patient, pt to continue with antiinflammatories. Pt is to call if the symptoms do not improve or if they worsen. Injection into left SI joint region today. Bronchitis - acute case of bronchitis identified. Pt has been given antibiotics, breathing treatments as appropriate, and pt has been instructed to call if symptoms are not improved, or if symptoms acutely worsen. I sent a prescription for lasix and potassium to [facility]. Take 2 TABLETS of LASIX and 2 tablets of POTASSIUM TODAY when you get the prescription and again tomorrow morning. Starting in Monday morning, take 1 tablet of lasix and 1 tablet of potassium daily x 7 days. Check labs today-CBC, CMP, BNP, UA with C&S prn CALL ME MONDAY MORNING AND LET ME KNOW YOUR WEIGHT. Go to ER if your symptoms do not improve or if ANY worse. Edema - uncontrolled swelling. I have informed the patient of ways to naturally decrease the swelling in their lower legs - cut back on salt to 2 - 3 grams/day, the lower the sodium content of food, the healthier and less potential for swelling, however don't completely cut all sodium from diet. Pt was also counseled to elevate lower legs and/or use compression socks from toes to thighs. RX sent to patient's [facility]. Chest xray at the hospital as well. Hypertension - well controlled - continue with current medications, continue with no added salt diet. Pt has been encouraged to exercise daily. The pt has been advised to call the office if there are any acute concerns about change in blood pressure readings at home Sinusitis - Pt has acute infection - pain in face, maxillary region, Pt informed to use decongestant, RX given to patient, sinus rinses also recommended. Recommend take start on probiotic while on antibiotics. Call if symptoms do not show improvement Dysuria-check UA-UA negative in the office, however, plan to recheck UA as patient was only able to give very small sample of urine. INCREASE LANTUS TO 20 UNITS IN THE MORNING AND 50 UNITS AT BEDTIME RESCHEDULE YOUR APPT WITH DR RAINES!!!! . Diabetes Mellitus - Uncontrolled - per recent FSBS reports. I have recommended for the patient to have follow up labs prior to the next office visit. The patient has been instructed to continue with current medications as previously directed, continue with regular FSBS monitoring to assure continued control of diabetes. Pt to call for any acute concerns, complaints, or if the blood glucose readings are starting to become less controlled. I have recommended for the patient to follow more strictly to the diabetic diet as discussed in clinic to allow for greater blood glucose control. INCREASE LANTUS TO 20 UNITS Q AM AND 50 UNITS Q HS RESCHEDULE APPT WITH DR RAINES Izvoislsb-zezheelpn-li for bactroban ointment provided and instructed on use GRV-ykiwjqbrrg-ym change in medications Mildly elevated liver enzymes-discussed with Dr motta-suspect due to gabapentin-will monitor levels Gait instability-again recommend patient use walker as well as PT RECOMMEND STOPPING THE POP COMPLETELY STOP EATING OUT-YOU NEED TO BE EATING FRESH FOODS AT HOME . Hypertension - well controlled - continue with current medications, continue with no added salt diet. Pt has been encouraged to exercise daily. The pt has been advised to call the office if there are any acute concerns about change in blood pressure readings at home. Diabetes Mellitus - have recommended for the patient to have follow up labs prior to the next office visit. The patient has been instructed to continue with current medications as previously directed, continue with regular FSBS monitoring to assure continued control of diabetes. Pt to call for any acute concerns, complaints, or if the blood glucose readings are starting to become less controlled. I have recommended for the patient to follow more strictly to the diabetic diet as discussed in clinic to allow for greater blood glucose control. Edema - pt has been advised to elevate legs to prevent dependent edema, compression has been recommended to help to naturally decrease peripheral edema. Diuretic use has been discussed and pt has been instructed in appropriate use of such medication as necessary to further attempt to reduce peripheral edema. Dysuria-check UA with c&s if indicated . Diabetes Mellitus - Uncontrolled - I have recommended for the patient to have follow up labs prior to the next office visit. The patient has been instructed to continue with current medications as previously directed, continue with regular FSBS monitoring to assure continued control of diabetes. Pt to call for any acute concerns, complaints, or if the blood glucose readings are starting to become less controlled. I have recommended for the patient to follow more strictly to the diabetic diet as discussed in clinic to allow for greater blood glucose control. Edema-much improved-continue low sodium diet Hypothyroidism-check labs Lumbago-RX for voltaren gel-follow up with [facility] as scheduled . Diabetes Mellitus - Uncontrolled - per recent FSBS reports. I have recommended for the patient to have follow up labs prior to the next office visit. The patient has been instructed to continue with current medications as previously directed, continue with regular FSBS monitoring to assure continued control of diabetes. Pt to call for any acute concerns, complaints, or if the blood glucose readings are starting to become less controlled. I have recommended for the patient to follow more strictly to the diabetic diet as discussed in clinic to allow for greater blood glucose control. Yeast infection -rx for nystatin powder XWGN-jqvvjprdu-byhsei ylxibskmr-hlab-unnsrlk is oxygen dependent due to severely compromised pulmonary and cardiac systems-will send orders to [facility] to continue oxygen . Diabetes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
[2018-06-04 11:14] LABS: AMORPHOUS SEDIMENT,UR RARE AMOR URATES /LPF; BACTERIA,URINE NEGATIVE /HPF
--- OUTSIDE RECORDS SUMMARY | 2018-06-04 11:33 | XMS REPORT | CCD ---
Author Author [facility] Organization [facility] Address [address] [place] [address] Phone Care Team Providers Care Penology Professor Name Role Phone Tessie Motta PP Unavailable CCM Unavailable Summary Purpose Interface Exchange Insurance Providers Payer name Policy type / Coverage type Covered libertarian ID Effective Begin Date Effective End Date WPS Medicare Part B Medicare Part B [id number] 2015 Unknown [facility] Medicare Part B [id number] Unknown Family history Son Diagnosis Age At [...] College Graduate 08/21/[address]: 610502819 Never smoker 02/11/[address]: 018583524 Never drinks alcohol 02/11/2011 Has the patient ever used illegal drugs? Unknown Has never used illegal drugs 02/11/2011 Allergies, Adverse Reactions, Alerts Substance Reaction Codes Entered Date Inactivated Date Status CODEINE RxNorm: 2670 02/11/2011 No Inactive Date Active * NO KNOWN FOOD ALLERGIES Unknown 02/01/2012 No Inactive Date Active cefdinir RxNorm: 89960 08/07/2012 No Inactive Date Active PENICILLINS Unknown [...] Start Date Stop Date Status Fill Instructions mupirocin 2 % topical ointment RxNorm: 523455 APPLY TO SORE IN BELLY BUTTON TWICE DAILY 05/23/2018 No Stop Date Active Flagyl 500 mg tablet RxNorm: 456996 1 Tablet(s) PO TID 201705/30/2018 Active cefdinir 300 mg capsule RxNorm: 157778 1 Capsule(s) PO BID 05/30/2018 Active Novolog Flexpen U-100 Insulin aspart 100 unit/mL subcutaneous RxNorm: 7569353 10 units with meals plus SSI in comments per dr raines Unit(s) SQ 05/18/2018 No Stop Date Active Novolg 10 units before meals PLUS extra if blood sugar is high. Add 1 u for BG 151-175, 2u for BG 176-200, 3 u for BG 201-225, 4u BG 226-250, 6u for BG 251-275, add 7u for BG 276-300, add 8u 301-325 Totatianna SoloStar U-300 Insulin 300 unit/mL (1.5 mL) subcutaneous pen RxNorm: 4724249 25 in am and 55 at HS Unit(s) SQ BID per dr raines 05/16/2018 06/14/2018 Active Xanax 0.5 mg tablet RxNorm: 582430 1 Tablet(s) BID as needed 05/16/2018 06/14/2018 Active nystatin 100,000 unit/mL oral suspension RxNorm: 868831 Unit(s) 5 Milliliter(s) PO QID swish and swallow 05/07/20182017 Inactive Tessalon Perles 100 mg capsule RxNorm: 915653 Capsule(s) Capsule(s) 2 Capsule(s) PO TID as needed 05/03/2018 No Stop Date Active Percocet 10 mg-325 mg tablet RxNorm: 5536612 1-2 Tablet(s) PO Q6 PRN 05/03/2018 05/17/2018 Inactive FreeStyle Test strips RxNorm: USE ONE STRIP TO CHECK GLUCOSE 4 TIMES DAILY 04/30/2018 No Stop Date Active promethazine 25 mg tablet RxNorm: 843944 Tablet(s) 1 Tablet(s) PO Q6 PRN TAKE NEEDED ONLY!!! 04/27/2018 No Stop Date Active digoxin 125 mcg tablet RxNorm: 267623 TAKE 1 TABLET BY MOUTH ONCE DAILY 04/23/2018 No Stop Date Active Lasix 40 mg tablet RxNorm: 955063 TAKE 1 TABLET BY MOUTH TWICE DAILY 04/19/2018 No Stop Date Active Vitamin D2 50,000 unit capsule RxNorm: 3571784 1 Capsule(s) PO QW 04/17/2018 06/15/2018 Active Tessalon Perles 100 mg capsule RxNorm: 236790 Capsule(s) Capsule(s) 2 Capsule(s) PO TID as needed 04/17/2018 05/02/2018 Inactive Xanax 0.5 mg tablet RxNorm: 879643 1 Tablet(s) BID as needed 04/09/2018 05/08/2018 Inactive Percocet 10 mg-325 mg tablet RxNorm: 5316435 1-2 Tablet(s) PO Q6 PRN 04/05/2018 04/19/2018 Inactive colestipol 1 gram tablet RxNorm: 7489061 TAKE ONE TABLET BY MOUTH TWICE DAILY 03/30/2018 No Stop Date Active Tessalon Perles 100 mg capsule RxNorm: 179722 Capsule(s) Capsule(s) 2 Capsule(s) PO TID as needed 03/21/2018 04/16/2018 Inactive nystatin 100,000 unit/mL oral suspension RxNorm: 617653 Unit(s) 5 Milliliter(s) PO QID swish and swallow 03/21/20182017 Inactive Xanax 0.5 mg tablet RxNorm: 178718 Tablet(s) BID as needed 04/09/2018 Inactive Slow Fe 47.5 mg iron tablet,extended release RxNorm: 1 Tablet(s) PO every other day 03/12/2018 04/10/2018 Inactive Percocet 10 mg-325 mg tablet RxNorm: 0032807 1-2 Tablet(s) PO Q6 PRN 03/12/2018 03/26/2018 Inactive Slow Fe 47.5 mg iron tablet,extended release RxNorm: 1 Tablet(s) PO 3 x week 02/28/2018 03/11/2018 Inactive promethazine 25 mg tablet RxNorm: 906235 Tablet(s) 1 Tablet(s) PO Q6 PRN TAKE NEEDED ONLY!!! 02/21/2018 04/26/2018 Inactive gabapentin 600 mg tablet RxNorm: 473486 Tablet(s) TAKE ONE & ONE-HALF TABLETS BY MOUTH THREE TIMES DAILY 02/20/20182018 Active Cymbalta 60 mg capsule,delayed release RxNorm: 163281 1 Capsule(s) PO daily take with 30mg tablet 02/20/2018 08/18/2018 Active Cymbalta 30 mg capsule,delayed release RxNorm: 430303 Capsule(s) TAKE ONE CAPSULE BY MOUTH ONCE DAILY - TAKE WITH THE 60 MG DOSE FOR A TOTAL OF 90 MG 02/20/2018 08/18/2018 Active Vitamin D2 50,000 unit capsule RxNorm: 3029423 1 Capsule(s) PO QW 02/20/2018 02/19/2018 Inactive Vitamin D2 50,000 unit capsule RxNorm: 8262037 1 Capsule(s) PO QW 02/20/2018 04/16/2018 Inactive mupirocin 2 % topical ointment RxNorm: 839893 APPLY TO SORE IN BELLY BUTTON TWICE DAILY 02/15/2018 05/22/2018 Inactive Percocet 10 mg-325 mg tablet RxNorm: 1058840 1-2 Tablet(s) PO Q6 PRN 02/14/2018 02/28/2018 Inactive Jerry Marley U-300 Insulin 300 unit/mL (1.5 mL) subcutaneous pen RxNorm: 4453996 40 Unit(s) SQ BID per dr raines 02/07/2018 03/08/2018 Inactive nystatin 100,000 unit/mL oral suspension RxNorm: 552360 5 Milliliter(s) PO QID swish and swallow 02/02/2018 02/11/2018 Inactive mupirocin 2 % topical ointment RxNorm: 346581 1 Application TOP BID 01/30/2018 02/08/2018 Inactive Tessalon Perles 100 mg capsule RxNorm: 036482 Capsule(s) 2 Capsule(s) PO TID as needed 01/23/2018 03/20/2018 Inactive Xanax 0.5 mg tablet RxNorm: 895340 Tablet(s) TAKE ONE TABLET BY MOUTH THREE TIMES DAILY NEEDED 01/17/20182017 Inactive ropinirole 1 mg tablet RxNorm: 320371 1 Tablet(s) PO BID 201705/10/2018 Inactive digoxin 125 mcg tablet RxNorm: 781910 1 Tablet(s) PO daily 04/22/2018 Inactive Percocet 10 mg-325 mg tablet RxNorm: 9032689 1-2 Tablet(s) PO Q6 PRN 01/04/2018 01/18/2018 Inactive Percocet 10 mg-325 mg tablet RxNorm: 0407091 1-2 Tablet(s) PO Q6 PRN 01/02/2018 01/03/2018 Inactive promethazine 25 mg tablet RxNorm: 374552 Tablet(s) 1 Tablet(s) PO Q6 PRN TAKE NEEDED ONLY!!! 01/02/2018 02/20/2018 Inactive pantoprazole 40 mg tablet,delayed release RxNorm: 767929 TAKE 1 TABLET BY MOUTH ONCE DAILY 12/25/2017 No Stop Date Active mupirocin 2 % topical ointment RxNorm: 798635 1 Application TOP BID 12/22/2017 12/31/2017 Inactive fluconazole 150 mg tablet RxNorm: 941570 1 Tablet(s) PO every other day x 3 doses 12/14/2017 12/23/2017 Inactive Percocet 10 mg-325 mg tablet RxNorm: 9802035 1-2 Tablet(s) PO Q6 PRN 12/13/2017 12/27/2017 Inactive hyoscyamine 0.125 mg sublingual tablet RxNorm: 4966666 Tablet(s) 1 Tablet(s) SL TID as needed 12/13/2017 04/11/2018 Inactive nystatin 100,000 unit/gram topical powder RxNorm: 131014 APPLY POWDER TOPICALLY 4 TIMES DAILY 12/11/2017 No Stop Date Active Xanax 0.5 mg tablet RxNorm: 084670 Tablet(s) TAKE ONE TABLET BY MOUTH THREE TIMES DAILY NEEDED 12/06/20172017 Inactive nitrofurantoin 50 mg capsule RxNorm: 182947 1 Capsule(s) PO BID 12/01/2017 11/30/2017 Inactive take probiotic BID x 7 days nitrofurantoin 50 mg capsule RxNorm: 532989 1 Capsule(s) PO BID 12/01/2017 12/07/2017 Inactive take probiotic BID x 7 days mupirocin 2 % topical ointment RxNorm: 507392 1 Application TOP BID 11/27/2017 12/06/2017 Inactive Tessalon Perles 100 mg capsule RxNorm: 189491 Capsule(s) 2 Capsule(s) PO TID as needed 11/21/2017 01/22/2018 Inactive nystatin 100,000 unit/mL oral suspension RxNorm: 232891 5 Milliliter(s) PO QID swish and swallow 11/17/2017 11/26/2017 Inactive nystatin 100,000 unit/mL oral suspension RxNorm: 540388 5 Milliliter(s) PO QID swish and swallow 11/17/2017 11/16/2017 Inactive Toprol XL 100 mg tablet,extended release RxNorm: 465830 TAKE ONE TABLET BY MOUTH TWICE DAILY 11/15/2017 No Stop Date Active ropinirole 1 mg tablet RxNorm: 513181 Tablet(s) BID 11/14/2017 01/10/2018 Inactive Diflucan 150 mg tablet RxNorm: 914084 Tablet(s) every other day 1 Tablet(s) PO every other day 11/14/2017 11/16/2017 Inactive Percocet 10 mg-325 mg tablet RxNorm: 6244436 1-2 Tablet(s) PO Q6 PRN 11/09/2017 11/23/2017 Inactive Flonase Allergy Relief 50 mcg/actuation nasal spray, suspension RxNorm: 0445874 2 [place] NASAL daily 11/06/20172017 Inactive cyclobenzaprine 10 mg tablet RxNorm: 942778 Tablet(s) TABLET(S) 1 TABLET(S) PO NEEDED TAKE 1 TABLET BY MOUTH EVERY 8 HOURS NEEDED 2017 No Stop Date Active Cymbalta 30 mg capsule,delayed release RxNorm: 723102 TAKE ONE CAPSULE BY MOUTH ONCE DAILY - TAKE WITH THE 60 MG DOSE FOR A TOTAL OF 90 MG 02/19/2018 Inactive Lantus Solostar U-100 Insulin 100 unit/mL (3 mL) subcutaneous pen RxNorm: 158933 Unit(s) SQ 35 units QAM and 55 units QHS Unit(s) SQ 10/27/2017 02/07/2018 Inactive Wants insulin pens Percocet 10 mg-325 mg tablet RxNorm: 1482284 1-2 Tablet(s) PO Q6 PRN 10/27/2017 11/08/2017 Inactive promethazine 25 mg tablet RxNorm: 860964 Tablet(s) 1 Tablet(s) PO Q6 PRN TAKE NEEDED ONLY!!! 10/27/2017 01/01/2018 Inactive Xanax 0.5 mg tablet RxNorm: 407656 Tablet(s) TAKE ONE TABLET BY MOUTH THREE TIMES DAILY 10/20/2017 04/08/2018 Inactive Tessalon Perles 100 mg capsule RxNorm: 671545 Capsule(s) 2 Capsule(s) PO TID as needed 10/19/2017 11/20/2017 Inactive Diflucan 150 mg tablet RxNorm: 145691 1 Tablet(s) PO every other day 10/15/2017 11/13/2017 Inactive Percocet 10 mg-325 mg tablet RxNorm: 2131724 1-2 Tablet(s) PO Q6 PRN 10/06/2017 10/20/2017 Inactive pantoprazole 40 mg tablet,delayed release RxNorm: 426663 1 Tablet(s) PO BID 10/03/2017 03/31/2018 Inactive Cymbalta 60 mg capsule,delayed release RxNorm: 734245 TAKE ONE CAPSULE BY MOUTH ONCE DAILY 09/21/2017 02/19/2018 Inactive Diflucan 150 mg tablet RxNorm: 031966 1 Tablet(s) PO every other day 09/15/2017 09/19/2017 Inactive hyoscyamine 0.125 mg sublingual tablet RxNorm: 5622467 1 Tablet(s) SL TID as needed 09/08/2017 12/12/2017 Inactive Lantus Solostar U-100 Insulin 100 unit/mL (3 mL) subcutaneous pen RxNorm: 641373 Unit(s) SQ 35 units QAM and 55 units QHS Unit(s) SQ 09/06/2017 09/20/2017 Inactive Wants insulin pens Lasix 40 mg tablet RxNorm: 615508 TAKE ONE TABLET BY MOUTH TWICE DAILY 08/25/2017 04/18/2018 Inactive ropinirole 1 mg tablet RxNorm: 135105 TAKE ONE TABLET BY MOUTH AT BEDTIME 08/25/2017 11/13/2017 Inactive Lantus U-100 Insulin 100 unit/mL subcutaneous solution RxNorm: 277346 35 units QAM and 55 units QHS Unit(s) SQ 08/21/2017 09/05/2017 Inactive Tessalon Perles 100 mg capsule RxNorm: 730767 Capsule(s) 2 Capsule(s) PO TID as needed 08/18/2017 10/18/2017 Inactive Percocet 10 mg-325 mg tablet RxNorm: 1342094 1-2 Tablet(s) PO Q6 PRN 08/16/2017 08/30/2017 Inactive pantoprazole 40 mg tablet,delayed release RxNorm: 368395 TAKE ONE TABLET BY MOUTH TWICE DAILY 08/14/2017 08/13/2017 Inactive pantoprazole 40 mg tablet,delayed release RxNorm: 452637 1 Tablet(s) PO daily 08/14/2017 10/02/2017 Inactive promethazine 25 mg tablet RxNorm: 627858 Tablet(s) 1 Tablet(s) PO Q6 PRN TAKE NEEDED ONLY!!! 08/11/2017 10/26/2017 Inactive omeprazole 20 mg capsule,delayed release RxNorm: 121064 1 Capsule(s) PO daily TAKE 1 CAPSULE BY MOUTH ONCE DAILY 08/07/2017 10/26/2017 Inactive nystatin 100,000 unit/mL oral suspension RxNorm: 199502 5 Milliliter(s) PO QID swish and swallow 08/07/2017 08/16/2017 Inactive mupirocin 2 % topical ointment RxNorm: 468553 APPLY TO SORE IN BELLY BUTTON TWICE DAILY 08/07/2017 02/14/2018 Inactive omeprazole 20 mg capsule,delayed release RxNorm: 591721 1 Capsule(s) PO BID TAKE 1 CAPSULE BY MOUTH TWICE DAILY 08/03/2017 08/06/2017 Inactive Diflucan 150 mg tablet RxNorm: 931359 1 Tablet(s) PO daily 08/05/2017 Inactive hyoscyamine 0.125 mg sublingual tablet RxNorm: 8153372 1 Tablet(s) SL TID as needed 08/03/2017 09/01/2017 Inactive gentamicin 0.3 % eye drops RxNorm: 682658 2 Drop(s) ophthalmic (eye) TID 08/03/2017 08/09/2017 Inactive Levaquin 500 mg tablet RxNorm: 728538 1 Tablet(s) PO every other day x3 doses 07/27/2017 08/02/2017 Inactive gentamicin 0.3 % eye drops RxNorm: 489549 2 Drop(s) ophthalmic (eye) TID 07/27/2017 08/02/2017 Inactive dicyclomine 10 mg capsule RxNorm: 478073 1 Capsule(s) PO TID 08/02/2017 Inactive Levaquin 500 mg tablet RxNorm: 572069 1 Tablet(s) PO daily 12/201707/26/2017 Inactive Lantus U-100 Insulin 100 unit/mL subcutaneous solution RxNorm: 959359 INJECT 35 UNITS SUBCUTANEOUSLY IN THE MORNING AND 55 UNITS AT BEDTIME 07/24/2017 09/05/2017 Inactive Tessalon Perles 100 mg capsule RxNorm: 255265 2 Capsule(s) PO TID as needed 07/24/2017 08/17/2017 Inactive Percocet 10 mg-325 mg tablet RxNorm: 1708981 1-2 Tablet(s) PO Q6 PRN 07/21/2017 08/04/2017 Inactive promethazine 25 mg tablet RxNorm: 938802 1 Tablet(s) PO Q6 PRN 1 Tablet(s) PO Q6 PRN 07/19/2017 07/26/2017 Inactive Cartia XT 240 mg capsule,extended release RxNorm: 749006 1 Capsule(s) PO daily 06/27/2017 06/21/2018 Active potassium chloride ER 20 mEq tablet,extended release RxNorm: 292987 Tablet(s) TAKE ONE TABLET BY MOUTH ONCE DAILY 06/21/2017 No Stop Date Active Lantus U-100 Insulin 100 unit/mL subcutaneous solution RxNorm: 337978 35 units QAM and 55 units QHS Unit(s) SQ 06/21/2017 07/20/2017 Inactive Please provide 30 day supply Percocet 10 mg-325 mg tablet RxNorm: 4235132 1-2 Tablet(s) PO Q6 PRN 06/21/2017 07/05/2017 Inactive Cartia XT 180 mg capsule,extended release RxNorm: 620661 Capsule(s) BID 06/21/2017 06/26/2017 Inactive Xanax 0.5 mg tablet RxNorm: 156916 Tablet(s) TAKE ONE TABLET BY MOUTH THREE TIMES DAILY 06/21/2017 08/19/2017 Inactive digoxin 125 mcg tablet RxNorm: 834792 1 Tablet(s) PO daily 10/18/2017 Inactive gabapentin 600 mg tablet RxNorm: 205001 Tablet(s) TAKE ONE & ONE-HALF TABLETS BY MOUTH THREE TIMES DAILY 06/21/20172017 Inactive dicyclomine 10 mg capsule RxNorm: 401688 1 Capsule(s) PO TID 07/26/2017 Inactive Lantus U-100 Insulin 100 unit/mL subcutaneous solution RxNorm: 467362 35 units QAM and 55 units QHS Unit(s) SQ 06/13/2017 06/20/2017 Inactive Please provide 30 day supply potassium chloride ER 20 mEq tablet,extended release RxNorm: 718988 TAKE ONE TABLET BY MOUTH ONCE DAILY 06/02/2017 Inactive cyclobenzaprine 10 mg tablet RxNorm: 249843 Tablet(s) TABLET(S) 1 TABLET(S) PO NEEDED TAKE 1 TABLET BY MOUTH EVERY 8 HOURS NEEDED 201711/02/2017 Inactive Tessalon Perles 100 mg capsule RxNorm: 056264 2 Capsule(s) PO TID as needed 06/01/2017 07/23/2017 Inactive promethazine 25 mg tablet RxNorm: 368308 1 Tablet(s) PO Q6 PRN 1 Tablet(s) PO Q6 PRN 05/25/2017 06/01/2017 Inactive gabapentin 600 mg tablet RxNorm: 476423 TAKE ONE & ONE-HALF TABLETS BY MOUTH THREE TIMES DAILY 05/23/2017 06/20/2017 Inactive promethazine 25 mg tablet RxNorm: 003987 1 Tablet(s) PO Q6 PRN 1 Tablet(s) PO Q6 PRN 05/19/2017 05/24/2017 Inactive Flagyl 500 mg tablet RxNorm: 600518 1 Tablet(s) PO TID 201605/26/2017 Inactive Levaquin 500 mg tablet RxNorm: 311229 1 Tablet(s) PO daily 05/16/2017 Inactive Tessalon Perles 100 mg capsule RxNorm: 740516 2 Capsule(s) PO TID as needed 05/17/2017 05/31/2017 Inactive Flagyl 500 mg tablet RxNorm: 770711 1 Tablet(s) PO TID 201605/16/2017 Inactive hyoscyamine 0.125 mg sublingual tablet RxNorm: 5927298 1 Tablet(s) SL TID as needed 05/17/2017 06/12/2017 Inactive Levaquin 500 mg tablet RxNorm: 044847 1 Tablet(s) PO daily 05/23/2017 Inactive Cymbalta 60 mg capsule,delayed release RxNorm: 827031 1 Capsule(s) PO daily take with 30mg tablet 05/16/2017 08/13/2017 Inactive Bentyl 10 mg capsule RxNorm: 453903 1 Capsule(s) PO TID as needed 05/12/2017 06/10/2017 Inactive Levsin 0.125 mg tablet RxNorm: 6741339 1 Tablet(s) PO Q4 PRN 1-2 Tablet(s) PO Q4 PRN 05/11/2017 05/11/2017 Inactive nystatin 100,000 unit/gram topical powder RxNorm: 004511 Gram(s) APPLY POWDER TOPICALLY 4 TIMES DAILY 05/11/20172017 Inactive nystatin 100,000 unit/mL oral suspension RxNorm: 812720 4 Milliliter(s) PO QID swish and swallow 05/10/2017 05/19/2017 Inactive and Monistat over the counter colestipol 1 gram tablet RxNorm: 2308704 TAKE ONE TABLET BY MOUTH TWICE DAILY 05/08/2017 03/29/2018 Inactive Lantus 100 unit/mL subcutaneous solution RxNorm: 614865 30 units QAM and 50 units QHS Unit(s) SQ 04/28/2017 05/27/2017 Inactive Please provide 30 day supply Lantus Solostar 100 unit/mL (3 mL) subcutaneous insulin pen RxNorm: 185395 Unit( s) SQ BID 04/28/2017 06/13/2017 Inactive 30 units q am and 50units at night Lantus 100 unit/mL subcutaneous solution RxNorm: 717162 30 units QAM and 50 units QHS Unit(s) SQ 04/28/2017 04/27/2017 Inactive Please provide 30 day supply Levsin 0.125 mg tablet RxNorm: 0538046 1 Tablet(s) PO Q4 PRN 1-2 Tablet(s) PO Q4 PRN 04/25/2017 05/10/2017 Inactive promethazine 25 mg tablet RxNorm: 140504 1 Tablet(s) PO Q6 PRN 1 Tablet(s) PO Q6 PRN 04/25/2017 05/02/2017 Inactive Toprol XL 100 mg tablet,extended release RxNorm: 676931 TAKE ONE TABLET BY MOUTH TWICE DAILY 04/24/2017 11/14/2017 Inactive Flagyl 500 mg tablet RxNorm: 925959 1 Tablet(s) PO TID 201604/30/2017 Inactive Levaquin 500 mg tablet RxNorm: 539306 1 Tablet(s) PO daily 05/201604/27/2017 Inactive Voltaren 1 % topical gel RxNorm: 908248 4 Gram(s) TOP QID 04/1810/14/2017 Inactive mupirocin 2 % topical ointment RxNorm: 576053 1 Application TOP BID 04/18/2017 04/27/2017 Inactive apply to sore in belly button Lantus Solostar 100 unit/mL (3 mL) subcutaneous insulin pen RxNorm: 311828 Unit( s) SQ BID 04/18/2017 04/27/2017 Inactive 20 units q am and 50units at night levothyroxine 88 mcg tablet RxNorm: 268267 1 Tablet(s) PO daily TAKE ONE TABLET BY MOUTH ONCE DAILY 04/06/2017 04/17/2017 Inactive Xanax 0.5 mg tablet RxNorm: 414362 Tablet(s) TAKE ONE TABLET BY MOUTH THREE TIMES DAILY 04/04/2017 06/02/2017 Inactive Percocet 10 mg-325 mg tablet RxNorm: 6209729 1-2 Tablet(s) PO Q6 PRN 04/04/2017 04/18/2017 Inactive cyclobenzaprine 10 mg tablet RxNorm: 203391 TAKE ONE TABLET BY MOUTH EVERY 8 HOURS NEEDED 04/03/2017 06/01/2017 Inactive potassium chloride ER 20 mEq tablet,extended release RxNorm: 548646 1 Tablet(s) PO daily 03/28/2017 06/01/2017 Inactive nystatin 100,000 unit/gram topical cream RxNorm: 385824 1 Application TOP BID 03/27/2017 04/09/2017 Inactive Levsin 0.125 mg tablet RxNorm: 9162866 1 Tablet(s) PO Q4 PRN 1-2 Tablet(s) PO Q4 PRN 03/27/2017 04/24/2017 Inactive promethazine 25 mg tablet RxNorm: 541452 1 Tablet(s) PO Q6 PRN 03/23/2017 03/29/2017 Inactive nystatin 100,000 unit/gram topical powder RxNorm: 816843 APPLY POWDER TOPICALLY 4 TIMES DAILY 03/17/2017 05/10/2017 Inactive Percocet 10 mg-325 mg tablet RxNorm: 3765363 1-2 Tablet(s) PO Q6 PRN 03/09/2017 03/23/2017 Inactive Levsin 0.125 mg tablet RxNorm: 7403704 1-2 Tablet(s) PO Q4 PRN 03/06/2017 03/26/2017 Inactive promethazine 25 mg tablet RxNorm: 063290 1 Tablet(s) PO Q6 PRN 03/06/2017 03/13/2017 Inactive potassium chloride ER 20 mEq tablet,extended release RxNorm: 396204 1 Tablet(s) PO BID 02/23/2017 03/09/2017 Inactive Levsin/SL 0.125 mg sublingual tablet RxNorm: 8861298 1-2 Tablet(s) SL Q4 PRN 02/17/2017 03/26/2017 Inactive potassium chloride ER 20 mEq tablet,extended release RxNorm: 613352 1 Tablet(s) PO BID 02/17/2017 02/21/2017 Inactive magnesium oxide 400 mg tablet RxNorm: 927376 1 Tablet(s) PO daily 02/17/2017 02/21/2017 Inactive then twice weekly thereafter Levsin 0.125 mg tablet RxNorm: 6390200 1-2 Tablet(s) PO Q4 PRN 02/17/2017 02/16/2017 Inactive promethazine 25 mg tablet RxNorm: 979890 1 Tablet(s) PO Q6 PRN 02/10/2017 03/05/2017 Inactive Percocet 10 mg-325 mg tablet RxNorm: 9547219 1-2 Tablet(s) PO Q6 PRN 02/09/2017 02/23/2017 Inactive Cymbalta 60 mg capsule,delayed release RxNorm: 707208 1 Capsule(s) PO daily take with 30mg tablet 02/06/2017 05/06/2017 Inactive Cymbalta 30 mg capsule,delayed release RxNorm: 188771 1 Capsule(s) PO daily take with 60mg tablet 02/06/2017 02/19/2018 Inactive take with 60mg=90mg Vitamin D2 50,000 unit capsule RxNorm: 278726 1 Capsule(s) PO daily 01/17/2017 01/16/2017 Inactive daily x 6 mths Tresiba FlexTouch U-100 100 unit/mL (3 mL) subcutaneous insulin pen RxNorm: 7398972 40 Unit(s) SQ daily 01/17/20172016 Inactive Tresiba FlexTouch U-100 100 unit/mL (3 mL) subcutaneous insulin pen RxNorm: 3480635 40 Unit(s) SQ daily 01/17/20172016 Inactive Vitamin D2 50,000 unit capsule RxNorm: 853830 1 Capsule(s) PO daily 01/17/2017 10/26/2017 Inactive daily x 6 mths Cymbalta 30 mg capsule,delayed release RxNorm: 269512 1 Capsule(s) PO daily 01/16/2017 02/05/2017 Inactive take with 60mg=90mg Percocet 10 mg-325 mg tablet RxNorm: 7114671 1-2 Tablet(s) PO Q6 PRN 01/13/2017 01/27/2017 Inactive gabapentin 600 mg tablet RxNorm: 481941 TAKE ONE & ONE-HALF TABLETS BY MOUTH THREE TIMES DAILY 01/10/2017 05/09/2017 Inactive Percocet 10 mg-325 mg tablet RxNorm: 1567754 1-2 Tablet(s) PO Q6 PRN 12/21/2016 01/04/2017 Inactive Xanax 0.5 mg tablet RxNorm: 558989 Tablet(s) TAKE ONE TABLET BY MOUTH THREE TIMES DAILY 12/20/2016 02/15/2017 Inactive promethazine 25 mg tablet RxNorm: 665221 1 Tablet(s) PO Q6 PRN 12/16/2016 12/18/2016 Inactive prednisone 20 mg tablet RxNorm: 742104 2 Tablet(s) PO daily 12/14/2016 Inactive prednisone 20 mg tablet RxNorm: 872360 2 Tablet(s) PO daily 03/26/2017 Inactive Eliquis 5 mg tablet RxNorm: 9461799 1 Tablet(s) PO BID 201601/11/2017 Inactive doxycycline monohydrate 100 mg tablet RxNorm: 361866 1 Tablet(s) PO BID 12/13/2016 03/26/2017 Inactive give doxycyline hyclate cyclobenzaprine 10 mg tablet RxNorm: 168619 TAKE ONE TABLET BY MOUTH EVERY 8 HOURS NEEDED 12/09/2016 12/28/2016 Inactive Cymbalta 60 mg capsule,delayed release RxNorm: 215486 TAKE ONE CAPSULE BY MOUTH ONCE DAILY 11/30/2016 02/05/2017 Inactive promethazine 25 mg tablet RxNorm: 070439 2 Tablet(s) PO Q6 PRN 11/29/2016 12/16/2016 Inactive Percocet 10 mg-325 mg tablet RxNorm: 0272184 1-2 Tablet(s) PO Q6 PRN 11/24/2016 12/08/2016 Inactive mupirocin 2 % topical ointment RxNorm: 843026 1 Application TOP BID 11/11/2016 11/24/2016 Inactive Xanax 0.5 mg tablet RxNorm: 119730 Tablet(s) TAKE ONE TABLET BY MOUTH THREE TIMES DAILY 11/11/2016 12/19/2016 Inactive Belviq 10 mg tablet RxNorm: 6107540 1 Tablet(s) PO BID 201612/10/2016 Inactive Toprol XL 100 mg tablet,extended release RxNorm: 874966 TAKE ONE TABLET BY MOUTH TWICE DAILY 11/04/2016 04/02/2017 Inactive albuterol sulfate concentrate 2.5 mg/0.5 mL solution for nebulization RxNorm: 521010 USE ONE VIAL IN NEBULIZER EVERY 4 TO 6 HOURS NEEDED 11/03/2016 11/12/2016 Inactive Percocet 10 mg-325 mg tablet RxNorm: 1448577 1-2 Tablet(s) PO Q6 PRN 10/31/2016 11/23/2016 Inactive promethazine 25 mg tablet RxNorm: 034269 2 Tablet(s) PO Q6 PRN 10/28/2016 11/28/2016 Inactive nystatin 100,000 unit/mL oral suspension RxNorm: 711026 5 Milliliter(s) PO QID 10/28/2016 11/06/2016 Inactive Levemir FlexTouch 100 unit/mL (3 mL) subcutaneous insulin pen RxNorm: 478662 45 Unit(s) SQ BID 10/28/2016 01/16/2017 Inactive 45 q am and 40 q anita cyclobenzaprine 10 mg tablet RxNorm: 992538 TAKE ONE TABLET BY MOUTH EVERY 8 HOURS NEEDED 10/21/2016 11/09/2016 Inactive Lasix 40 mg tablet RxNorm: 348312 TAKE ONE TABLET BY MOUTH TWICE DAILY 10/18/2016 04/15/2017 Inactive Percocet 10 mg-325 mg tablet RxNorm: 6075002 1-2 Tablet(s) PO Q6 PRN 10/18/2016 10/30/2016 Inactive acyclovir 400 mg tablet RxNorm: 914872 2 Tablet(s) PO QID 10/1310/22/2016 Inactive Lasix 40 mg tablet RxNorm: 478385 TAKE ONE TABLET BY MOUTH TWICE DAILY 10/10/2016 10/17/2016 Inactive ropinirole 1 mg tablet RxNorm: 687396 TAKE ONE TABLET BY MOUTH AT BEDTIME 10/10/2016 04/07/2017 Inactive nystatin 100,000 unit/mL oral suspension RxNorm: 698166 5 Milliliter(s) PO QID x 10 days 09/30/2016 10/09/2016 Inactive nystatin 100,000 unit/mL oral suspension RxNorm: 664763 5 Milliliter(s) PO QID x 10 days 09/30/2016 10/09/2016 Inactive Swish et swallow Flonase Allergy Relief 50 mcg/actuation nasal spray, suspension RxNorm: 5742381 2 [place] NASAL daily 09/23/20162016 Inactive Percocet 10 mg-325 mg tablet RxNorm: 7053109 1-2 Tablet(s) PO Q6 PRN 09/23/2016 10/17/2016 Inactive doxycycline monohydrate 100 mg tablet RxNorm: 918253 1 Tablet(s) PO BID 09/23/2016 10/02/2016 Inactive give doxycyline hyclate Levemir FlexTouch 100 unit/mL (3 mL) subcutaneous insulin pen RxNorm: 475295 40 Unit(s) SQ BID 09/15/2016 10/27/2016 Inactive nystatin 100,000 unit/gram topical powder RxNorm: 274689 1 Application TOP QID 09/13/2016 09/22/2016 Inactive Voltaren 1 % topical gel RxNorm: 946815 4 Gram(s) TOP QID 09/1303/11/2017 Inactive Anusol-HC 25 mg rectal suppository RxNorm: 9111978 1 Suppository RTL HS 09/13/2016 09/26/2016 Inactive hydrocodone 10 mg-acetaminophen 325 mg tablet RxNorm: 699761 1-2 Tablet(s) PO Q6 as needed 09/13/2016 09/22/2016 Inactive Linzess 145 mcg capsule RxNorm: 5057069 1 Capsule(s) PO daily 09/01/2016 10/26/2017 Inactive Linzess 145 mcg capsule RxNorm: 2028347 1 Capsule(s) PO daily 09/01/2016 08/31/2016 Inactive Zofran 4 mg tablet RxNorm: 905087 TAKE ONE TABLET BY MOUTH EVERY 4 TO 6 HOURS NEEDED 08/29/2016 08/02/2017 Inactive Voltaren 1 % topical gel RxNorm: 043744 4 Gram(s) TOP QID 08/2309/12/2016 Inactive levothyroxine 88 mcg tablet RxNorm: 122816 TAKE ONE TABLET BY MOUTH ONCE DAILY 08/19/2016 12/16/2016 Inactive hydrocodone 10 mg-acetaminophen 325 mg tablet RxNorm: 632527 1 Tablet(s) PO Q6 as needed 08/17/2016 09/12/2016 Inactive nystatin 100,000 unit/gram topical powder RxNorm: 197265 1 Application TOP QID 08/16/2016 08/25/2016 Inactive Cymbalta 60 mg capsule,delayed release RxNorm: 523664 TAKE ONE CAPSULE BY MOUTH ONCE DAILY 08/10/2016 11/29/2016 Inactive Voltaren 1 % topical gel RxNorm: 844826 4 Gram(s) TOP QID 08/1008/22/2016 Inactive Voltaren 1 % topical gel RxNorm: 118747 4 Gram(s) TOP QID 08/1008/09/2016 Inactive promethazine 25 mg tablet RxNorm: 066413 TAKE ONE TABLET BY MOUTH EVERY 8 HOURS NEEDED FOR NAUSEA 07/29/20162017 Inactive nystatin 100,000 unit/gram topical powder RxNorm: 740425 1 Application TOP QID 07/26/2016 08/04/2016 Inactive Levemir FlexTouch U-100 Insulin 100 unit/mL (3 mL) subcutaneous pen RxNorm: 835034 35 Unit(s) SQ BID 07/26/201609/2016 Inactive 35 q am and 30 q pm cyclobenzaprine 10 mg tablet RxNorm: 385894 TAKE ONE TABLET BY MOUTH EVERY 8 HOURS NEEDED 07/14/2016 08/22/2016 Inactive hydrocodone 10 mg-acetaminophen 325 mg tablet RxNorm: 742642 1 Tablet(s) PO Q6 as needed 07/11/2016 08/16/2016 Inactive nystatin 100,000 unit/mL oral suspension RxNorm: 680965 5 Milliliter(s) PO QID x 10 days 07/05/2016 07/04/2016 Inactive nystatin 100,000 unit/mL oral suspension RxNorm: 970573 5 Milliliter(s) PO QID x 10 days 07/05/2016 07/04/2016 Inactive nystatin 100,000 unit/mL oral suspension RxNorm: 229003 5 Milliliter(s) PO QID x 10 days 07/05/2016 07/14/2016 Inactive Swish et swallow doxycycline monohydrate 100 mg tablet RxNorm: 809005 1 Tablet(s) PO BID 06/24/2016 07/03/2016 Inactive give doxycyline hyclate promethazine 25 mg tablet RxNorm: 767288 TAKE ONE TABLET BY MOUTH EVERY 8 HOURS NEEDED FOR NAUSEA 06/01/20162016 Inactive pantoprazole 40 mg tablet,delayed release RxNorm: 300147 1 Tablet(s) PO BID 05/25/2016 08/02/2017 Inactive Zofran 4 mg tablet RxNorm: 517270 1 Tablet(s) PO Q12 PRN TAKE 1 TABLET BY MOUTH EVERY 4 TO 6 HOURS NEEDED 05/24/2016 Inactive hydrocodone 10 mg-acetaminophen 325 mg tablet RxNorm: 110197 1 Tablet(s) PO Q6 as needed 05/24/2016 07/10/2016 Inactive Levemir FlexTouch 100 unit/mL (3 mL) subcutaneous insulin pen RxNorm: 419168 25 Unit(s) SQ BID 05/24/2016 06/22/2016 Inactive Xanax 0.5 mg tablet RxNorm: 467753 Tablet(s) TAKE ONE TABLET BY MOUTH THREE TIMES DAILY 05/11/2016 07/09/2016 Inactive BD Insulin Pen Needle UF Short 31 gauge x 5/16" RxNorm: [facility] 05/06/2016 05/05/2016 Inactive BD Insulin Pen Needle UF Short 31 gauge x 5/16" RxNorm: [facility] 05/06/2016 06/04/2016 Inactive colestipol 1 gram tablet RxNorm: 3373016 Tablet(s) TAKE 1 TABLET BY MOUTH TWICE DAILY 04/22/2016 04/16/2017 Inactive Levemir FlexTouch 100 unit/mL (3 mL) subcutaneous insulin pen RxNorm: 510013 20 Unit(s) SQ BID 04/19/2016 05/18/2016 Inactive 25 UNITS Q AM AND 20 UNITS Q HS Cartia XT 180 mg capsule,extended release RxNorm: 446082 Capsule(s) BID 04/11/2016 04/05/2017 Inactive hydrocodone 10 mg-acetaminophen 325 mg tablet RxNorm: 248409 1 Tablet(s) PO Q6 as needed 04/11/2016 05/23/2016 Inactive Levemir FlexTouch 100 unit/mL (3 mL) subcutaneous insulin pen RxNorm: 456263 20 Unit(s) SQ BID 04/11/2016 04/18/2016 Inactive 20 UNITS Q AM AND 15 UNITS Q HS X 1 WEEK THEN 20 UNITS BID levothyroxine 88 mcg tablet RxNorm: 799316 1 Tablet(s) PO daily 03/21/2016 07/18/2016 Inactive Cymbalta 60 mg capsule,delayed release RxNorm: 559200 1 Capsule(s) PO daily 03/21/2016 07/18/2016 Inactive diltiazem ER (XR/XT) 240 mg capsule,extended release, controlled RxNorm: 180424 1 Capsule(s) PO BID 03/18/20162017 Inactive doxycycline hyclate 100 mg tablet RxNorm: 047924 1 Tablet(s) PO BID 03/11/2016 03/17/2016 Inactive Levemir FlexTouch 100 unit/mL (3 mL) subcutaneous insulin pen RxNorm: 562068 10 Unit(s) SQ BID 03/11/2016 04/09/2016 Inactive Lasix 40 mg tablet RxNorm: 032876 1 Tablet(s) PO BID 201509/06/2016 Inactive gabapentin 600 mg tablet RxNorm: 189430 Tablet(s) 1.5 TABLET(S) PO TID 03/04/2016 08/30/2016 Inactive Toujeo SoloStar 300 unit/mL (1.5 mL) subcutaneous insulin pen RxNorm: 5548145 10 Unit(s) SQ QHS 02/26/2016 03/26/2016 Inactive polymyxin B sulfate 10,000 unit-trimethoprim 1 mg/mL eye drops RxNorm: 862925 2 Drop(s) OPH TID 02/26/2016 03/03/2016 Inactive Lasix 20 mg tablet RxNorm: 005040 2 Tablet(s) PO BID TAKE 2 TABLETS BY MOUTH EVERY MORNING AND 2 TABLET BY MOUTH AT 3 PM 02/26/2016 03/10/2016 Inactive cyclobenzaprine 10 mg tablet RxNorm: 228771 Tablet(s) TABLET(S) TABLET(S) 1 TABLET (S) PO NEEDED TAKE 1 TABLET BY MOUTH EVERY 8 HOURS NEEDED 02/26/2016 07/13/2016 Inactive early fill- pt lost med Levemir FlexTouch 100 unit/mL (3 mL) subcutaneous insulin pen RxNorm: 134572 16 Unit(s) SQ QHS 02/18/2016 02/17/2016 Inactive Levemir FlexTouch 100 unit/mL (3 mL) subcutaneous insulin pen RxNorm: 235250 16 Unit(s) SQ QHS 02/18/2016 02/25/2016 Inactive Levemir 100 unit/mL subcutaneous solution RxNorm: 681509 16 Unit(s) SQ QHS 02/15/2016 02/17/2016 Inactive disp needles as well Effexor XR 37.5 mg capsule,extended release RxNorm: 472760 1 Capsule(s) QPM CAPSULE(S) PO TAKE 2 CAPSULES BY MOUTH EVERY MORNING AND 1 CAPSULE BY MOUTH EVERY NIGHT AT BEDTIME 02/15/20162015 Inactive clotrimazole 100 mg vaginal tablet RxNorm: 082609 1 Tablet(s) VAG QHS 02/05/2016 02/11/2016 Inactive clotrimazole 100 mg vaginal tablet RxNorm: 563023 1 Tablet(s) VAG QHS 02/05/2016 02/04/2016 Inactive hydrocodone 10 mg-acetaminophen 325 mg tablet RxNorm: 752198 1 Tablet(s) PO Q6 as needed 02/05/2016 04/10/2016 Inactive flecainide 100 mg tablet RxNorm: 756484 1 Tablet(s) PO BID No Stop Date Active potassium chloride ER 10 mEq tablet,extended release RxNorm: 297465 1 Tablet(s) PO daily 1 TABLET(S) PO QDAY PRN TAKE WITH LASIX 02/02/2016 01/26/2017 Inactive Brovana 15 mcg/2 mL solution for nebulization RxNorm: 724526 2 Milliliter(s) INH BID PRN 02/02/2016 03/20/2016 Inactive promethazine 25 mg tablet RxNorm: 280007 1 Tablet(s) PO Q8 as needed nausea 01/27/2016 03/20/2016 Inactive promethazine 25 mg tablet RxNorm: 289620 1 Tablet(s) PO Q6 PRN 01/27/2016 02/03/2016 Inactive nystatin 100,000 unit/mL oral suspension RxNorm: 941966 5 Unit(s) PO QID 01/12/2016 05/06/2018 Inactive promethazine 25 mg tablet RxNorm: 759557 1 Tablet(s) PO Q6 PRN 12/30/2015 01/06/2016 Inactive hydrocodone 7.5 mg-acetaminophen 325 mg tablet RxNorm: 785191 1 Tablet(s) PO q 6 hours prn for pain 12/10/2015 01/06/2016 Inactive Xanax 0.5 mg tablet RxNorm: 452302 TAKE ONE TABLET BY MOUTH THREE TIMES DAILY 12/02/2015 12/31/2015 Inactive Xanax 0.5 mg tablet RxNorm: 974205 Tablet(s) TAKE 1 TABLET BY MOUTH THREE TIMES DAILY 12/02/2015 11/30/2015 Inactive Anusol-HC 25 mg rectal suppository RxNorm: 4372014 1 Suppository RTL HS 11/27/2015 09/12/2016 Inactive ropinirole 1 mg tablet RxNorm: 775932 1 Tablet(s) PO QHS 201505/24/2016 Inactive nystatin 100,000 unit/mL oral suspension RxNorm: 106719 5 Unit(s) PO QID 11/20/2015 11/29/2015 Inactive albuterol sulfate concentrate 2.5 mg/0.5 mL solution for nebulization RxNorm: 517569 3 Milliliter(s) INH Q4-6H as needed 11/10/2015 11/02/2016 Inactive doxycycline monohydrate 100 mg tablet RxNorm: 403930 1 Tablet(s) PO BID 11/10/2015 11/19/2015 Inactive give doxycyline hyclate promethazine 25 mg tablet RxNorm: 387476 1 Tablet(s) PO Q6 PRN 11/05/2015 11/12/2015 Inactive Bactroban 2 % topical ointment RxNorm: 781018 1 APPLICATION TOP BID 10/27/2015 10/26/2017 Inactive Belviq 10 mg tablet RxNorm: 6838875 1 Tablet(s) PO BID 201511/25/2015 Inactive hydrocodone 7.5 mg-acetaminophen 325 mg tablet RxNorm: 020998 1 Tablet(s) PO q 6 hours prn for pain 10/20/2015 11/18/2015 Inactive Toprol XL 100 mg tablet,extended release RxNorm: 281359 Tablet(s) TAKE 1 TABLET BY MOUTH TWICE DAILY 10/16/20152016 Inactive Diflucan 150 mg tablet RxNorm: 973888 1 Tablet(s) PO every other day 10/14/2015 10/23/2015 Inactive Xanax 0.5 mg tablet RxNorm: 180018 Tablet(s) TAKE 1 TABLET BY MOUTH THREE TIMES DAILY 10/14/2015 05/10/2016 Inactive Toprol XL 100 mg tablet,extended release RxNorm: 179008 Tablet(s) TAKE 1 TABLET BY MOUTH TWICE DAILY 10/13/20152015 Inactive cyclobenzaprine 10 mg tablet RxNorm: 385880 Tablet(s) TABLET(S) TABLET(S) 1 TABLET (S) PO NEEDED TAKE 1 TABLET BY MOUTH EVERY 8 HOURS NEEDED 10/02/2015 10/14/2015 Inactive Zofran 4 mg tablet RxNorm: 865563 Tablet(s) 1 TABLET(S) PRN TAKE 1 TABLET BY MOUTH EVERY 4 TO 6 HOURS NEEDED 09/29/2015 12/27/2015 Inactive Synthroid 88 mcg tablet RxNorm: 057408 1 Tablet(s) PO daily 1 TABLET(S) PO DAILY 09/29/2015 10/28/2015 Inactive Patient requests 90 days supply promethazine 25 mg tablet RxNorm: 440794 1 Tablet(s) PO Q6 PRN 09/29/2015 11/04/2015 Inactive Lasix 20 mg tablet RxNorm: 201386 2 Tablet(s) PO BID 201501/18/2016 Inactive promethazine 25 mg tablet RxNorm: 105938 1 Tablet(s) PO Q6 PRN 09/22/2015 09/28/2015 Inactive hydrocodone 7.5 mg-acetaminophen 325 mg tablet RxNorm: 123721 1 Tablet(s) PO q 6 hours prn for pain 09/17/2015 10/16/2015 Inactive WelChol 625 mg tablet RxNorm: 644498 3 Tablet(s) PO BID 201503/26/2017 Inactive promethazine 25 mg tablet RxNorm: 248390 1 Tablet(s) PO Q8 as needed 09/07/2015 10/26/2017 Inactive Levemir 100 unit/mL subcutaneous solution RxNorm: 955106 16 Unit(s) SQ QHS 09/01/2015 02/14/2016 Inactive pantoprazole 40 mg tablet,delayed release RxNorm: 858590 1 Tablet(s) PO daily 09/01/2015 05/24/2016 Inactive Effexor XR 37.5 mg capsule,extended release RxNorm: 239528 Capsule(s) CAPSULE(S) PO TAKE 2 CAPSULES BY MOUTH EVERY MORNING AND 1 CAPSULE BY MOUTH EVERY NIGHT AT BEDTIME 08/27/2015 02/14/2016 Inactive promethazine 25 mg tablet RxNorm: 526046 1 Tablet(s) PO Q8 as needed 08/13/2015 09/06/2015 Inactive gabapentin 600 mg tablet RxNorm: 006618 Tablet(s) 1.5 TABLET(S) PO TID 08/13/2015 02/08/2016 Inactive hydrocodone 7.5 mg-acetaminophen 325 mg tablet RxNorm: 999916 1 Tablet(s) PO q 6 hours prn for pain 08/10/2015 09/08/2015 Inactive Zofran 4 mg tablet RxNorm: 764867 Tablet(s) 1 TABLET(S) PRN TAKE 1 TABLET BY MOUTH EVERY 4 TO 6 HOURS NEEDED 08/04/2015 08/03/2015 Inactive Zofran 4 mg tablet RxNorm: 892970 Tablet(s) 1 TABLET(S) PRN TAKE 1 TABLET BY MOUTH EVERY 4 TO 6 HOURS NEEDED 08/04/2015 09/28/2015 Inactive doxycycline monohydrate 100 mg tablet RxNorm: 950182 1 Tablet(s) PO BID 08/04/2015 08/10/2015 Inactive give doxycyline hyclate Diflucan 150 mg tablet RxNorm: 696422 1 Tablet(s) PO every other day 07/31/2015 08/09/2015 Inactive nystatin 100,000 unit/mL oral suspension RxNorm: 969197 5 Milliliter(s) PO QID 07/31/2015 07/30/2015 Inactive Diflucan 150 mg tablet RxNorm: 676849 1 Tablet(s) PO every other day 07/31/2015 07/30/2015 Inactive nystatin 100,000 unit/mL oral suspension RxNorm: 299475 5 Milliliter(s) PO QID 07/31/2015 08/09/2015 Inactive Ceftin 500 mg tablet RxNorm: 955292 1 Tablet(s) PO BID 201507/23/2015 Inactive Ceftin 500 mg tablet RxNorm: 546463 1 Tablet(s) PO BID Pre-medicate with benadryl 50 mg, pepcid 20 mg, and nathanael before each dose 07/24/2015 07/30/2015 Inactive cyclobenzaprine 10 mg tablet RxNorm: 413880 TABLET(S) TABLET(S) 1 TABLET(S) PO NEEDED TAKE 1 TABLET BY MOUTH EVERY 8 HOURS NEEDED 201502/25/2016 Inactive early fill- pt lost med Synthroid 88 mcg tablet RxNorm: 290137 1 TABLET(S) PO DAILY 07/201509/28/2015 Inactive Patient requests 90 days supply cyclobenzaprine 10 mg tablet RxNorm: 235952 Tablet(s) TABLET(S) TABLET(S) 1 TABLET (S) PO NEEDED TAKE 1 TABLET BY MOUTH EVERY 8 HOURS NEEDED 07/23/2015 10/01/2015 Inactive early fill- pt lost med Promethazine VC 6.25 mg-5 mg/5 mL syrup RxNorm: 3675885 1-2 Teaspoon(s) PO Q6 PRN as needed 07/22/2015 03/20/2016 Inactive Diflucan 150 mg tablet RxNorm: 324628 1 Tablet(s) PO daily 06/201507/22/2015 Inactive Lasix 20 mg tablet RxNorm: 478838 Tablet(s) TAKE 2 TABLETS BY MOUTH EVERY MORNING AND 2 TABLET BY MOUTH AT 3PM 07/16/2015 09/21/2015 Inactive Toprol XL 100 mg tablet,extended release RxNorm: 627946 Tablet(s) TAKE 1 TABLET BY MOUTH TWICE DAILY 07/16/20152015 Inactive Cartia XT 180 mg capsule,extended release RxNorm: 497947 Capsule(s) 1 CAPSULE(S) PO DAILY TAKE 1 CAPSULE BY MOUTH AT BEDTIME ..TAKE THIS IN ADDITION TO 240 MG IN THE MORNING 07/14/2015 04/10/2016 Inactive diltiazem ER (XR/XT) 240 mg capsule,extended release, controlled RxNorm: 654833 Capsule(s) TAKE 1 CAPSULE BY MOUTH DAILY 07/14/2015 03/17/2016 Inactive gabapentin 600 mg tablet RxNorm: 576618 Tablet(s) 1.5 TABLET(S) PO TID 07/06/2015 08/12/2015 Inactive Phenergan 25 mg tablet RxNorm: 874310 1 Tablet(s) PO Q8 as needed nausea 06/29/2015 01/25/2016 Inactive doxycycline monohydrate 100 mg tablet RxNorm: 660365 1 Tablet(s) PO BID 06/29/2015 06/28/2015 Inactive doxycycline monohydrate 100 mg tablet RxNorm: 001987 1 Tablet(s) PO BID 06/29/2015 07/08/2015 Inactive give doxycyline hyclate doxycycline monohydrate 100 mg tablet RxNorm: 959048 1 Tablet(s) PO BID 06/29/2015 06/28/2015 Inactive Lasix 20 mg tablet RxNorm: 613910 Tablet(s) TAKE 2 TABLETS BY MOUTH EVERY MORNING AND 2 TABLET BY MOUTH AT 3PM 06/29/2015 07/15/2015 Inactive Lasix 20 mg tablet RxNorm: 418779 Tablet(s) TAKE 2 TABLETS BY MOUTH EVERY MORNING AND 1 TABLET BY MOUTH AT 3PM 06/26/2015 06/28/2015 Inactive Xanax 0.5 mg tablet RxNorm: 269331 Tablet(s) TAKE 1 TABLET BY MOUTH THREE TIMES DAILY 06/26/2015 07/25/2015 Inactive Kenalog 40 mg/mL suspension for injection RxNorm: 9118341 Milliliter(s) Inj 06/26/2015 06/26/2015 Inactive hydrocodone 7.5 mg-acetaminophen 325 mg tablet RxNorm: 385251 1 Tablet(s) PO q 6 hours prn for pain 06/26/2015 07/25/2015 Inactive Dexilant 60 mg capsule, delayed release RxNorm: 336687 1 Capsule(s) PO daily 06/26/2015 08/24/2015 Inactive colestipol 1 gram tablet RxNorm: 8845106 1 TABLET(S) PO BID TAKE 1 TABLET BY MOUTH TWICE DAILY 06/16/2015 03/11/2016 Inactive hydrocodone 7.5 mg-acetaminophen 325 mg tablet RxNorm: 293035 1 Tablet(s) PO q 6 hours prn for pain 06/11/2015 06/25/2015 Inactive cyclobenzaprine 10 mg tablet RxNorm: 504366 TABLET(S) TABLET(S) 1 TABLET(S) PO NEEDED TAKE 1 TABLET BY MOUTH EVERY 8 HOURS NEEDED 201507/22/2015 Inactive early fill- pt lost med Zofran 4 mg tablet RxNorm: 282183 1 TABLET(S) PRN TAKE 1 TABLET BY MOUTH EVERY 4 TO 6 HOURS NEEDED 05/25/20152015 Inactive Zofran 4 mg tablet RxNorm: 510077 1 Tablet(s) PRN TAKE 1 TABLET BY MOUTH EVERY 4 TO 6 HOURS NEEDED 05/19/20152015 Inactive gabapentin 600 mg tablet RxNorm: 839003 1.5 TABLET(S) PO TID 07/05/2015 Inactive Lasix 20 mg tablet RxNorm: 537521 TAKE 2 TABLETS BY MOUTH EVERY MORNING AND 1 TABLET BY MOUTH AT 3PM 05/07/20152015 Inactive Effexor XR 37.5 mg capsule,extended release RxNorm: 340002 Capsule(s) CAPSULE(S) PO TAKE 2 CAPSULES BY MOUTH EVERY MORNING AND 1 CAPSULE BY MOUTH EVERY NIGHT AT BEDTIME 04/15/2015 08/26/2015 Inactive Diflucan 150 mg tablet RxNorm: 979093 1 Tablet(s) PO daily 04/18/2015 Inactive Victoza 3-Babak 0.6 mg/0.1 mL (18 mg/3 mL) subcutaneous pen injector RxNorm: 805414 1.8 Milligram(s) SQ daily 04/14/201508/10 Inactive Levaquin 500 mg tablet RxNorm: 252278 1 Tablet(s) PO daily 04/20/2015 Inactive potassium chloride ER 10 mEq tablet,extended release RxNorm: 942202 1 TABLET(S) PO QDAY PRN TAKE WITH LASIX 04/13/201504/2016 Inactive Effexor XR 37.5 mg capsule,extended release RxNorm: 498080 CAPSULE(S) PO TAKE 2 CAPSULES BY MOUTH EVERY MORNING AND 1 CAPSULE BY MOUTH EVERY NIGHT AT BEDTIME 04/10/2015 04/14/2015 Inactive pantoprazole 40 mg tablet,delayed release RxNorm: 291370 1 Tablet(s) PO daily 03/31/2015 08/31/2015 Inactive Dexilant 60 mg capsule, delayed release RxNorm: 184683 1 Capsule(s) PO daily 03/31/2015 03/31/2015 Inactive pantoprazole 40 mg tablet,delayed release RxNorm: 108350 1 Tablet(s) PO daily 03/31/2015 03/30/2015 Inactive Dexilant 60 mg capsule, delayed release RxNorm: 585347 1 Capsule(s) PO daily 03/31/2015 05/29/2015 Inactive Dexilant 60 mg capsule, delayed release RxNorm: 120089 1 Capsule(s) PO daily 03/30/2015 03/30/2015 Inactive hydrocodone 7.5 mg-acetaminophen 325 mg tablet RxNorm: 070936 1 Tablet(s) PO q 6 hours prn for pain 03/30/2015 04/28/2015 Inactive cyclobenzaprine 10 mg tablet RxNorm: 339582 TABLET(S) TABLET(S) 1 TABLET(S) PO NEEDED TAKE 1 TABLET BY MOUTH EVERY 8 HOURS NEEDED 201405/31/2015 Inactive early fill- pt lost med Xanax 0.5 mg tablet RxNorm: 959148 Tablet(s) TAKE 1 TABLET BY MOUTH THREE TIMES DAILY 03/25/2015 04/23/2015 Inactive Lasix 20 mg tablet RxNorm: 837811 TAKE 2 TABLETS BY MOUTH EVERY MORNING AND 1 TABLET BY MOUTH AT 3PM 03/23/20152014 Inactive Levemir Flexpen 100 unit/mL (3 mL) solution subcutaneous insulin pen RxNorm: 210945 15 Unit(s) SQ BID 03/20/20152015 Inactive give quanity sufficient for 1 month- Dexilant 60 mg capsule, delayed release RxNorm: 645989 1 Capsule(s) PO daily 03/19/2015 03/29/2015 Inactive Dexilant 60 mg capsule, delayed release RxNorm: 419731 1 Capsule(s) PO daily 03/19/2015 03/18/2015 Inactive Diflucan 150 mg tablet RxNorm: 388690 1 Tablet(s) PO every other day x7 doses 03/19/2015 03/21/2015 Inactive hydrocodone 7.5 mg-acetaminophen 325 mg tablet RxNorm: 092506 1 Tablet(s) PO q 6 hours prn for pain 02/27/2015 03/28/2015 Inactive Lasix 20 mg tablet RxNorm: 852695 TAKE 2 TABLETS BY MOUTH EVERY MORNING AND 1 TABLET BY MOUTH AT 3PM 02/27/20152014 Inactive omeprazole 20 mg capsule,delayed release RxNorm: 896609 1 CAPSULE(S) PO DAILY TAKE 1 CAPSULE BY MOUTH TWICE DAILY 02/26/2015 10/26/2017 Inactive Zofran 4 mg tablet RxNorm: 554482 1 Tablet(s) PRN TAKE 1 TABLET BY MOUTH EVERY 4 TO 6 HOURS NEEDED 02/24/20152014 Inactive fluconazole 150 mg tablet RxNorm: 454403 1 Tablet(s) PO every other day x 5 doses 02/19/2015 02/28/2015 Inactive cyclobenzaprine 10 mg tablet RxNorm: 505959 TABLET(S) TABLET(S) 1 TABLET(S) PO NEEDED TAKE 1 TABLET BY MOUTH EVERY 8 HOURS NEEDED 201403/29/2015 Inactive early fill- pt lost med hydrocodone 7.5 mg-acetaminophen 325 mg tablet RxNorm: 511727 1 Tablet(s) PO q 6 hours prn for pain 01/29/2015 02/26/2015 Inactive Xanax 0.5 mg tablet RxNorm: 638701 Tablet(s) TAKE 1 TABLET BY MOUTH THREE TIMES DAILY 01/29/2015 02/27/2015 Inactive Bactroban 2 % topical ointment RxNorm: 778247 1 APPLICATION TOP BID 01/26/2015 10/26/2015 Inactive Bactroban 2 % topical ointment RxNorm: 906478 1 Application TOP BID 01/15/2015 01/25/2015 Inactive doxycycline hyclate 100 mg tablet RxNorm: 603317 1 Tablet(s) PO BID 01/15/2015 01/21/2015 Inactive nystatin 100,000 unit/mL oral suspension RxNorm: 891547 5 Milliliter(s) PO QID 01/15/2015 01/24/2015 Inactive Cartia XT 180 mg capsule,extended release RxNorm: 124213 1 CAPSULE(S) PO DAILY TAKE 1 CAPSULE BY MOUTH AT BEDTIME ..TAKE THIS IN ADDITION TO 240 MG IN THE MORNING 01/13/2015 07/13/2015 Inactive Lasix 20 mg tablet RxNorm: 195635 TAKE 2 TABLETS BY MOUTH EVERY MORNING AND 1 TABLET BY MOUTH AT 3PM 01/08/20152014 Inactive fluconazole 150 mg tablet RxNorm: 923392 1 Tablet(s) PO daily 01/01/2015 01/05/2015 Inactive hydrocodone 7.5 mg-acetaminophen 325 mg tablet RxNorm: 467670 1 Tablet(s) PO q 6 hours prn for pain 01/01/2015 01/28/2015 Inactive colestipol 1 gram tablet RxNorm: 1983288 1 TABLET(S) PO BID TAKE 1 TABLET BY MOUTH TWICE DAILY 12/18/2014 06/15/2015 Inactive colestipol 1 gram tablet RxNorm: 1920100 1 TABLET(S) PO BID TAKE 1 TABLET BY MOUTH TWICE DAILY 12/18/2014 09/13/2015 Inactive Lasix 20 mg tablet RxNorm: 392773 TAKE 2 TABLETS BY MOUTH EVERY MORNING AND 2 TABLETS AND AT 3PM 12/11/2014 12/25/2014 Inactive cyclobenzaprine 10 mg tablet RxNorm: 312285 TABLET(S) 1 TABLET(S) PO NEEDED TAKE 1 TABLET BY MOUTH EVERY 8 HOURS NEEDED 12/11/2014 05/31/2017 Inactive Lasix 20 mg tablet RxNorm: 374779 Tablet(s) TABLET(S) PO TAKE 2 TABLETS BY MOUTH EVERY MORNING AND 1 TABLET BY MOUTH AT 3 PM 12/10/2014 12/10/2014 Inactive fill early- pt lost them cyclobenzaprine 10 mg tablet RxNorm: 731558 Tablet(s) TABLET(S) 1 TABLET(S) PO NEEDED TAKE 1 TABLET BY MOUTH EVERY 8 HOURS NEEDED 201402/15/2015 Inactive early fill- pt lost med cyclobenzaprine 10 mg tablet RxNorm: 668992 TABLET(S) 1 TABLET(S) PO NEEDED TAKE 1 TABLET BY MOUTH EVERY 8 HOURS NEEDED 12/02/2014 12/09/2014 Inactive hydrocodone 7.5 mg-acetaminophen 325 mg tablet RxNorm: 768039 1 Tablet(s) PO q 6 hours prn for pain 12/01/2014 12/30/2014 Inactive diltiazem ER (XR/XT) 240 mg capsule,extended release, controlled RxNorm: 237587 TAKE 1 CAPSULE BY MOUTH DAILY 11/30/2014 07/13/2015 Inactive Xanax 0.5 mg tablet RxNorm: 428569 1 Tablet(s) PO TID PRN as needed 11/19/2014 11/19/2014 Inactive (Appended: Controlled substance eRx refill - RxReferenceNumber: [id number]|1|0|1) Xanax 0.5 mg tablet RxNorm: 682695 TAKE 1 TABLET BY MOUTH THREE TIMES DAILY 11/19/2014 12/18/2014 Inactive Toprol XL 100 mg tablet,extended release RxNorm: 658987 TAKE 1 TABLET BY MOUTH TWICE DAILY 11/06/2014 07/15/2015 Inactive Diflucan 150 mg tablet RxNorm: 858845 1 Tablet(s) PO every other day x7 doses 11/05/2014 11/07/2014 Inactive omeprazole 20 mg capsule,delayed release RxNorm: 869805 1 Capsule(s) PO daily TAKE 1 CAPSULE BY MOUTH TWICE DAILY 11/04/2014 02/01/2015 Inactive cyclobenzaprine 10 mg tablet RxNorm: 277953 TABLET(S) 1 TABLET(S) PO NEEDED TAKE 1 TABLET BY MOUTH EVERY 8 HOURS NEEDED 10/28/2014 12/01/2014 Inactive hydrocodone 7.5 mg-acetaminophen 325 mg tablet RxNorm: 431266 1 Tablet(s) PO q 6 hours prn for pain 10/21/2014 11/19/2014 Inactive gabapentin 600 mg tablet RxNorm: 344223 1.5 Tablet(s) PO TID 04/30/2015 Inactive Xanax 0.5 mg tablet RxNorm: 006477 Tablet(s) TAKE 1 TABLET BY MOUTH THREE TIMES DAILY 10/01/2014 10/30/2014 Inactive (Response to an electronic controlled substance refill request - RxReferenceNumber: [id number]|1|0|1) Xanax 0.25 mg tablet RxNorm: 990157 1 Tablet(s) PO Q8 PRN as needed 09/30/2014 09/30/2014 Inactive Lasix 20 mg tablet RxNorm: 410104 Tablet(s) TAKE 2 TABLETS BY MOUTH EVERY MORNING AND 2 TABLETS BY MOUTH AT 3 PM 09/30/2014 11/12/2014 Inactive Victoza 3-Babak 0.6 mg/0.1 mL (18 mg/3 mL) subcutaneous pen injector RxNorm: 220001 1.2 MILLIGRAM(S) SQ DAILY 0.6 X 2 WEEKS THEN INCREASE TO 1.2MG DAILY 09/26/2014 04/13/2015 Inactive Xanax 0.5 mg tablet RxNorm: 179864 TAKE 1 TABLET BY MOUTH THREE TIMES DAILY 09/25/2014 09/30/2014 Inactive (Response to an electronic controlled substance refill request [id number]|1|0|1) Zofran 4 mg tablet RxNorm: 234510 TAKE 1 TABLET BY MOUTH EVERY 4 TO 6 HOURS NEEDED 09/25/2014 09/27/2014 Inactive hydrocodone 7.5 mg-acetaminophen 325 mg tablet RxNorm: 807454 1 Tablet(s) PO q 6 hours prn for pain 09/19/2014 10/18/2014 Inactive cyclobenzaprine 10 mg tablet RxNorm: 993226 TABLET(S) 1 TABLET(S) PO NEEDED TAKE 1 TABLET BY MOUTH EVERY 8 HOURS NEEDED 09/15/2014 10/27/2014 Inactive Lasix 20 mg tablet RxNorm: 058598 Tablet(s) TAKE 2 TABLETS BY MOUTH EVERY MORNING AND 2 TABLETS BY MOUTH AT 3 PM 09/08/2014 09/29/2014 Inactive Lasix 20 mg tablet RxNorm: 456642 TAKE 2 TABLETS BY MOUTH EVERY MORNING AND 2 TABLETS BY MOUTH AT 3 PM 08/21/20142014 Inactive hydrocodone 7.5 mg-acetaminophen 325 mg tablet RxNorm: 383376 1 Tablet(s) PO q 6 hours prn for pain 08/21/2014 09/18/2014 Inactive Diflucan 150 mg tablet RxNorm: 390764 1 Tablet(s) PO every other day 08/15/2014 08/17/2014 Inactive cyclobenzaprine 10 mg tablet RxNorm: 553211 Tablet(s) 1 TABLET(S) PO NEEDED TAKE 1 TABLET BY MOUTH EVERY 8 HOURS NEEDED 08/12/2014 09/14/2014 Inactive Zofran 4 mg tablet RxNorm: 793248 TAKE 1 TABLET BY MOUTH EVERY 4 TO 6 HOURS NEEDED 07/31/2014 08/02/2014 Inactive Effexor XR 37.5 mg capsule,extended release RxNorm: 323351 CAPSULE(S) PO TAKE 2 CAPSULES BY MOUTH EVERY MORNING AND 1 CAPSULE BY MOUTH EVERY NIGHT AT BEDTIME 07/28/2014 02/15/2016 Inactive Lasix 20 mg tablet RxNorm: TAKE 2 TABLETS BY MOUTH EVERY MORNING AND 2 TABLETS BY MOUTH AT 3 PM 07/22/20142014 Inactive Diflucan 150 mg tablet RxNorm: 592365 1 Tablet(s) PO daily 06/201407/23/2014 Inactive hydrocodone 7.5 mg-acetaminophen 325 mg tablet RxNorm: 207815 1 Tablet(s) PO q 6 hours prn for pain 07/14/2014 08/12/2014 Inactive Synthroid 88 mcg tablet RxNorm: 992697 1 TABLET(S) PO DAILY 10/11/2014 Inactive Effexor XR 37.5 mg capsule,extended release RxNorm: 306126 Capsule(s) PO TAKE 2 CAPSULES BY MOUTH EVERY MORNING AND 1 CAPSULE BY MOUTH EVERY NIGHT AT BEDTIME 07/07/2014 04/09/2015 Inactive Effexor XR 37.5 mg capsule,extended release RxNorm: 205170 TAKE 2 CAPSULES BY MOUTH EVERY MORNING AND 1 CAPSULE BY MOUTH EVERY NIGHT AT BEDTIME 07/07/2014 01/02/2015 Inactive WelChol 625 mg tablet RxNorm: 106625 3 TABLET(S) PO BID 201410/04/2014 Inactive WelChol 625 mg tablet RxNorm: 911633 3 Tablet(s) PO BID 201402/01/2015 Inactive Zofran 4 mg tablet RxNorm: 286006 TAKE 1 TABLET BY MOUTH EVERY 4 TO 6 HOURS NEEDED 07/03/2014 07/05/2014 Inactive Lasix 20 mg tablet RxNorm: TAKE 2 TABLETS BY MOUTH EVERY MORNING AND 2 TABLETS BY MOUTH AT 3 PM 06/26/20142014 Inactive Diflucan 150 mg tablet RxNorm: 871311 1 Tablet(s) PO daily 06/19/2014 Inactive Promethazine VC 6.25 mg-5 mg/5 mL syrup RxNorm: 8381180 1-2 Teaspoon(s) PO Q6 PRN as needed 06/12/2014 07/21/2015 Inactive hydrocodone 7.5 mg-acetaminophen 325 mg tablet RxNorm: 441186 1 Tablet(s) PO q 6 hours prn for pain 06/03/2014 07/02/2014 Inactive Levaquin 500 mg tablet RxNorm: 213209 1 Tablet(s) PO daily 01/201506/05/2014 Inactive cyclobenzaprine 10 mg tablet RxNorm: 974868 Tablet(s) 1 TABLET(S) PO NEEDED TAKE 1 TABLET BY MOUTH EVERY 8 HOURS NEEDED 05/26/2014 No Stop Date Active cyclobenzaprine 10 mg tablet RxNorm: 843754 1 TABLET(S) PO NEEDED TAKE 1 TABLET BY MOUTH EVERY 8 HOURS NEEDED 05/26/2014 08/11/2014 Inactive Lasix 20 mg tablet RxNorm: 778505 Tablet(s) TABLET(S) PO TAKE 2 TABLETS BY MOUTH EVERY MORNING AND 2 TABLET BY MOUTH AT 3 PM 05/12/2014 06/25/2014 Inactive Combivent Respimat 20 mcg-100 mcg/actuation solution for inhalation RxNorm: 8080260 INHALE 1 PUFF BY MOUTH FOUR TIMES DAILY 05/12/2014 11/07/2014 Inactive fluconazole 150 mg tablet RxNorm: 499660 1 Tablet(s) PO UD 05/12/2014 Inactive 1 tab every other day x 5 doses Activella 0.5 mg-0.1 mg tablet RxNorm: 4322189 1 TABLET(S) PO DAILY TAKE 1 TABLET BY MOUTH DAILY FOR MENOPAUSAL SYMPTOM 05/02/2014 09/21/2015 Inactive hydrocodone 7.5 mg-acetaminophen 300 mg tablet RxNorm: 105031 Tablet(s) PO TAKE 1 TABLET BY MOUTH EVERY 6 HOURS NEEDED FOR PAIN 04/21/2014 06/03/2014 Inactive ( Appended: Controlled substance eRx refill - RxReferenceNumber: [id number]|1|0|1 ) Levaquin 500 mg tablet RxNorm: 259854 1 Tablet(s) PO daily 04/21/2014 Inactive Diflucan 150 mg tablet RxNorm: 122592 1 Tablet(s) PO every other day x 4 doses 04/10/2014 06/16/2014 Inactive Lasix 20 mg tablet RxNorm: 669433 TAKE 2 TABLETS BY MOUTH EVERY MORNING AND 1 TABLET BY MOUTH AT 3 PM 04/10/20142013 Inactive potassium chloride ER 10 mEq tablet,extended release RxNorm: 297053 1 TABLET(S) PO QDAY PRN TAKE WITH LASIX 04/09/2014 Inactive Levaquin 250 mg tablet RxNorm: 554684 1 Tablet(s) PO daily 08/201304/07/2014 Inactive 2 tabs today then 1 tab daily until gone atorvastatin 40 mg tablet RxNorm: 989809 1 Tablet(s) daily 1 TABLET(S) PO DAILY 03/25/2014 04/10/2016 Inactive TAKE 1 TABLET BY MOUTH DAILY (THIS IS AN INCREASE IN DOSAGE) Zofran 4 mg tablet RxNorm: 473682 1 Tablet(s) PO Q4-6H 201307/02/2014 Inactive Xanax 0.5 mg tablet RxNorm: 893089 TAKE 1 TABLET BY MOUTH THREE TIMES DAILY NEEDED 03/19/2014 04/17/2014 Inactive (Response to an electronic controlled substance refill request - RxReferenceNumber: [id number]|1|0|1) hydrocodone 7.5 mg-acetaminophen 300 mg tablet RxNorm: 315921 Tablet(s) PO TAKE 1 TABLET BY MOUTH EVERY 6 HOURS NEEDED FOR PAIN 03/19/2014 04/20/2014 Inactive ( Appended: Controlled substance eRx refill - RxReferenceNumber: [id number]|1|0|1 ) atorvastatin 40 mg tablet RxNorm: 995868 1 TABLET(S) PO DAILY 03/10/2014 03/24/2014 Inactive TAKE 1 TABLET BY MOUTH DAILY (THIS IS AN INCREASE IN DOSAGE) WelChol 625 mg tablet RxNorm: 217902 3 Tablet(s) PO BID 201303/06/2014 Inactive WelChol 625 mg tablet RxNorm: 337340 3 Tablet(s) PO BID 201307/04/2014 Inactive Lasix 20 mg tablet RxNorm: 747580 Tablet(s) TABLET(S) PO TAKE 2 TABLETS BY MOUTH EVERY MORNING AND 2 TABLET BY MOUTH AT 3 PM 03/03/2014 05/11/2014 Inactive Lasix 20 mg tablet RxNorm: TABLET(S) PO TAKE 2 TABLETS BY MOUTH EVERY MORNING AND 1 TABLET BY MOUTH AT 3 PM 02/20/2014 03/02/2014 Inactive gabapentin 600 mg tablet RxNorm: 512171 1.5 Tablet(s) PO TID 09/16/2014 Inactive Synthroid 88 mcg tablet RxNorm: 327930 1 TABLET(S) PO DAILY 05/18/2014 Inactive cyclobenzaprine 10 mg tablet RxNorm: 904190 1 TABLET(S) PO NEEDED TAKE 1 TABLET BY MOUTH EVERY 8 HOURS NEEDED 02/18/2014 05/25/2014 Inactive doxycycline hyclate 100 mg tablet RxNorm: 656409 1 Tablet(s) PO BID 02/13/2014 02/22/2014 Inactive Bactroban 2 % topical ointment RxNorm: 438044 1 Application TOP BID 02/13/2014 03/12/2014 Inactive Victoza 3-Babak 0.6 mg/0.1 mL (18 mg/3 mL) subcutaneous pen injector RxNorm: 733306 1.2 MILLIGRAM(S) SQ DAILY 0.6 X 2 WEEKS THEN INCREASE TO 1.2MG DAILY 02/10/2014 05/10/2014 Inactive albuterol sulfate 1.25 mg/3 mL solution for nebulization RxNorm: 898095 3 MILLILITER(S) INH TID 02/07/20142014 Inactive 1 box Victoza 3-Babak 0.6 mg/0.1 mL (18 mg/3 mL) subcutaneous pen injector RxNorm: 175793 1.8 Milligram(s) SQ daily 0.6 x 2 weeks then increase to 1.2mg daily 01/27/2014 05/26/2014 Inactive Levemir Flexpen 100 unit/mL (3 mL) solution subcutaneous insulin pen RxNorm: 121863 5units sq at hs, increase by 3 Unit(s) SQ at hs every 3days, goal FSBS 170 or less, do not increase above 20units, call doctor with report 01/27/2014 05/26/2014 Inactive hydrocodone 7.5 mg-acetaminophen 300 mg tablet RxNorm: 142301 Tablet(s) PO TAKE 1 TABLET BY MOUTH EVERY 6 HOURS NEEDED FOR PAIN 01/24/2014 03/18/2014 Inactive ( Appended: Controlled substance eRx refill - RxReferenceNumber: [id number]|1|0|1 ) Xanax 0.5 mg tablet RxNorm: 133183 1 Tablet(s) PO TID PRN as needed 01/24/2014 09/21/2014 Inactive (Appended: Controlled substance eRx refill - RxReferenceNumber: [id number]|1|0|1) Xanax 0.5 mg tablet RxNorm: 515264 TAKE 1 TABLET BY MOUTH THREE TIMES DAILY NEEDED 01/23/2014 02/21/2014 Inactive (Response to an electronic controlled substance refill request - RxReferenceNumber: [id number]|1|0|1) hydrocodone 5 mg-acetaminophen 325 mg tablet RxNorm: 299876 TAKE 1 TABLET BY MOUTH EVERY 6 HOURS NEEDED FOR PAIN 01/21/2014 02/19/2014 Inactive (Response to an electronic controlled substance refill request - RxReferenceNumber: [id number]| [id number]|1|0|1) Lasix 20 mg tablet RxNorm: 850422 TAKE 2 TABLETS BY MOUTH EVERY MORNING AND 1 TABLET BY MOUTH AT 3 PM 01/17/20142013 Inactive cyclobenzaprine 10 mg tablet RxNorm: 231071 1 Tablet(s) PO as needed TAKE 1 TABLET BY MOUTH EVERY 8 HOURS NEEDED 01/13/2014 02/17/2014 Inactive Anusol-HC 25 mg suppository RxNorm: 9973343 1 SUPPOSITORY RTL PRN ONE PER RECTUM NEEDED, UP TO TWICE DAILY FOR HEMORRHOID, NO MORE THAN 7 DAYS IN A ROW 01/10/2014 02/06/2014 Inactive Activella 0.5 mg-0.1 mg tablet RxNorm: 9330308 1 Tablet(s) PO daily TAKE 1 TABLET BY MOUTH DAILY FOR MENOPAUSAL SYMPTOM 01/08/2014 05/01/2014 Inactive gabapentin 600 mg tablet RxNorm: 418705 1.5 Tablet(s) PO TID 02/18/2014 Inactive gabapentin 600 mg tablet RxNorm: 981747 1.5 Tablet(s) PO TID 01/01/2014 Inactive hydrocodone 7.5 mg-acetaminophen 300 mg tablet RxNorm: 775288 Tablet(s) PO TAKE 1 TABLET BY MOUTH EVERY 6 HOURS NEEDED FOR PAIN 12/12/2013 01/23/2014 Inactive ( Appended: Controlled substance [id number]|[id number]|1|0|1 ) Levaquin 250 mg tablet RxNorm: 960121 1 Tablet(s) PO daily 12/18/2013 Inactive 2 tabs today then 1 tab daily until gone Diflucan 150 mg tablet RxNorm: 332785 1 Tablet(s) PO daily 12/16/2013 Inactive do not stat until levaquin is completed Cartia XT 180 mg capsule,extended release RxNorm: 941577 1 CAPSULE(S) PO DAILY TAKE 1 CAPSULE BY MOUTH AT BEDTIME ..TAKE THIS IN ADDITION TO 240 MG IN THE MORNING 12/12/2013 12/06/2014 Inactive diltiazem ER (XR/XT) 240 mg capsule,extended release, controlled RxNorm: 398682 1 Capsule(s) PO daily TAKE 1 CAPSULE BY MOUTH EVERY DAY 11/28/2014 Inactive Effexor XR 37.5 mg capsule,extended release RxNorm: 184360 Capsule(s) PO TAKE 2 CAPSULES BY MOUTH EVERY MORNING AND 1 CAPSULE BY MOUTH EVERY NIGHT AT BEDTIME 12/04/2013 07/06/2014 Inactive Lasix 20 mg tablet RxNorm: TABLET(S) PO TAKE 2 TABLETS BY MOUTH EVERY MORNING AND 1 TABLET BY MOUTH AT 3 PM 12/04/2013 12/09/2014 Inactive Voltaren 1 % topical gel RxNorm: 019645 4 Gram(s) TOP QID 11/2703/26/2014 Inactive Cartia XT 180 mg capsule,extended release RxNorm: 984584 1 Capsule(s) PO daily TAKE 1 CAPSULE BY MOUTH AT BEDTIME ..TAKE THIS IN ADDITION TO 240 MG IN THE MORNING 11/27/2013 01/12/2015 Inactive Lasix 20 mg tablet RxNorm: TABLET(S) PO TAKE 2 TABLETS BY MOUTH EVERY MORNING AND 1 TABLET BY MOUTH AT 3 PM 11/26/2013 02/19/2014 Inactive colestipol 1 gram tablet RxNorm: 3152077 1 Tablet(s) PO BID TAKE 1 TABLET BY MOUTH TWICE DAILY 11/26/2013 11/20/2014 Inactive cyclobenzaprine 10 mg tablet RxNorm: 179491 Tablet(s) PO TAKE 1 TABLET BY MOUTH EVERY 8 HOURS NEEDED 11/21/20132013 Inactive Diflucan 150 mg tablet RxNorm: 577291 1 Tablet(s) PO daily TAKE 1 TABLET BY MOUTH EVERY OTHER DAY FOR 8 DOSES 11/14/201306/2013 Inactive peak flow meter-inh assist dev kit RxNorm: 1 dose Miscellaneous PRN 11/14/2013 10/27/2017 Inactive Effexor XR 37.5 mg capsule,extended release RxNorm: 993945 Capsule(s) PO TAKE 2 CAPSULES BY MOUTH EVERY MORNING AND 1 CAPSULE BY MOUTH EVERY NIGHT AT BEDTIME 11/04/2013 12/03/2013 Inactive Anusol-HC 25 mg suppository RxNorm: 1147124 1 Suppository RTL PRN one per rectum as needed, up to twice daily for hemorrhoid, no more than 7 days in a row 10/23/2013 10/22/2013 Inactive Anusol-HC 25 mg suppository RxNorm: 0808827 1 Suppository RTL PRN one per rectum as needed, up to twice daily for hemorrhoid, no more than 7 days in a row 10/23/2013 01/09/2014 Inactive Activella 0.5 mg-0.1 mg tablet RxNorm: 0981984 Tablet(s) PO TAKE 1 TABLET BY MOUTH DAILY FOR MENOPAUSAL SYMPTOM 10/21/2013 01/07/2014 Inactive cyclobenzaprine 10 mg tablet RxNorm: 250897 Tablet(s) PO TAKE 1 TABLET BY MOUTH EVERY 8 HOURS NEEDED 10/21/20132013 Inactive Lasix 20 mg tablet RxNorm: 153405 Tablet(s) PO TAKE 2 TABLETS BY MOUTH EVERY MORNING AND 1 TABLET BY MOUTH AT 3 PM 10/17/2013 02/25/2016 Inactive Bactroban 2 % topical ointment RxNorm: 009427 1 Application TOP BID 10/10/2013 11/06/2013 Inactive Zofran 4 mg tablet RxNorm: 488536 1 Tablet(s) PO Q4-6H 201303/20/2014 Inactive Bactroban 2 % topical ointment RxNorm: 504118 1 Application TOP BID 09/27/2013 10/09/2013 Inactive hydrocodone 5 mg-acetaminophen 325 mg tablet RxNorm: 877397 Tablet(s) PO TAKE 1 TABLET BY MOUTH EVERY 6 HOURS NEEDED FOR PAIN 09/26/2013 12/11/2013 Inactive ( Appended: Controlled substance eRx refill - RxReferenceNumber: [id number]|1|0|1 ) hydrocodone 5 mg-acetaminophen 325 mg tablet RxNorm: 509244 1 Tablet(s) PO Q6 PRN 09/26/2013 01/24/2014 Inactive cyclobenzaprine 10 mg tablet RxNorm: 523257 Tablet(s) PO TAKE 1 TABLET BY MOUTH EVERY 8 HOURS NEEDED 09/16/2013 No Stop Date Active omeprazole 20 mg capsule,delayed release RxNorm: 607029 Capsule(s) PO TAKE 1 CAPSULE BY MOUTH TWICE DAILY 09/02/2013 Inactive Lasix 20 mg tablet RxNorm: 342380 Tablet(s) PO TAKE 2 TABLETS BY MOUTH EVERY MORNING AND 1 TABLET BY MOUTH AT 3 PM 09/02/2013 04/10/2016 Inactive Diflucan 150 mg tablet RxNorm: 652909 Tablet(s) PO TAKE 1 TABLET BY MOUTH EVERY OTHER DAY FOR 8 DOSES 08/29/20132013 Inactive Effexor XR 37.5 mg capsule,extended release RxNorm: 536246 Capsule(s) PO TAKE 2 CAPSULES BY MOUTH EVERY MORNING AND 1 CAPSULE BY MOUTH EVERY NIGHT AT BEDTIME 08/29/2013 11/03/2013 Inactive diltiazem ER (XR/XT) 240 mg capsule,extended release, controlled RxNorm: 036019 Capsule(s) PO TAKE 1 CAPSULE BY MOUTH EVERY DAY 201312/03/2013 Inactive Xanax 0.5 mg tablet RxNorm: 908842 1 Tablet(s) PO TID PRN 11/2013 No Stop Date Active (Appended: Controlled substance eRx refill - RxReferenceNumber: [id number]| 104035|1|0|1) colestipol 1 gram tablet RxNorm: 1974242 Tablet(s) PO TAKE 1 TABLET BY MOUTH TWICE DAILY 08/26/2013 11/25/2013 Inactive Victoza 3-Babak 0.6 mg/0.1 mL (18 mg/3 mL) subcutaneous pen injector RxNorm: 507770 1.2 Milligram(s) SQ daily 0.6 x 2 weeks then increase to 1.2mg daily 08/19/2013 12/16/2013 Inactive Synthroid 88 mcg tablet RxNorm: 078521 1 Tablet(s) PO daily 12/09/2013 Inactive Lasix 20 mg tablet RxNorm: Tablet(s) PO TAKE 2 TABLETS BY MOUTH EVERY MORNING AND 2 TABLETS BY MOUTH AT 3 PM 08/12/2013 10/18/2016 Inactive Xanax 0.5 mg tablet RxNorm: 278298 1 Tablet(s) PO TID PRN No Stop Date Active (Appended: Controlled substance eRx refill - RxReferenceNumber: [id number]| [id number]|1|0|1) Lasix 20 mg tablet RxNorm: Tablet(s) PO TAKE 2 TABLETS BY MOUTH EVERY MORNING AND 1 TABLET BY MOUTH AT 3 PM 08/07/2013 08/11/2013 Inactive Voltaren 1 % topical gel RxNorm: 187600 4 Gram(s) TOP QID 08/0111/26/2013 Inactive Zyvox 600 mg tablet RxNorm: 322375 1 Tablet(s) PO BID 201307/27/2013 Inactive please call the office is this is too expensive for the pt Zyvox 600 mg tablet RxNorm: 657984 1 Tablet(s) PO BID 201307/17/2013 Inactive hydrocodone 5 mg-acetaminophen 325 mg tablet RxNorm: 0873647 1 Tablet(s) PO Q6 PRN 07/15/2013 09/26/2013 Inactive Zofran 4 mg tablet RxNorm: 589141 1 Tablet(s) PO Q4-6H 201310/02/2013 Inactive Lasix 20 mg tablet RxNorm: Tablet(s) PO TAKE 2 TABLETS BY MOUTH EVERY MORNING AND 1 TABLET BY MOUTH AT 3 PM 07/11/2013 10/18/2016 Inactive cyclobenzaprine 10 mg tablet RxNorm: 952322 1 Tablet(s) PO Q8 PRN 06/27/2013 08/25/2013 Inactive gabapentin 600 mg tablet RxNorm: 096234 1.5 Tablet(s) PO TID 01/02/2014 Inactive Lasix 20 mg tablet RxNorm: Tablet(s) PO TAKE 2 TABLETS BY MOUTH EVERY MORNING AND 1 TABLET BY MOUTH AT 3 PM 06/17/2013 07/10/2013 Inactive hydrocodone 5 mg-acetaminophen 325 mg tablet RxNorm: 769932 1 Tablet(s) PO Q6 PRN 06/10/2013 07/14/2013 Inactive hydrocortisone 2.5 % rectal cream RxNorm: 694106 1 Suppository RTL BID PRN 06/10/2013 06/29/2013 Inactive Flexeril 10 mg tablet RxNorm: 090095 1 Tablet(s) PO Q8 PRN 06/0406/26/2013 Inactive diltiazem ER (XR/XT) 240 mg capsule,extended release, controlled RxNorm: 839650 Capsule(s) PO TAKE 1 CAPSULE BY MOUTH EVERY DAY 201310/26/2017 Inactive omeprazole 20 mg capsule,delayed release RxNorm: 381896 Capsule(s) PO TAKE 1 CAPSULE BY MOUTH TWICE DAILY 05/24/2013 Inactive colestipol 1 gram tablet RxNorm: 2793563 Tablet(s) PO TAKE 1 TABLET BY MOUTH TWICE DAILY 05/23/2013 04/21/2016 Inactive Januvia 100 mg tablet RxNorm: 342902 1 Tablet(s) PO daily 201308/18/2013 Inactive Activella 0.5 mg-0.1 mg tablet RxNorm: 531726 Tablet(s) PO TAKE 1 TABLET BY MOUTH DAILY FOR MENOPAUSAL SYMPTOM 05/17/2013 Inactive Xanax 0.5 mg tablet RxNorm: 124764 1 Tablet(s) PO TID PRN 08/06/2013 Inactive (Appended: Controlled substance eRx refill - RxReferenceNumber: [id number]| [id number]|1|0|1) Kenalog 40 mg/mL suspension for injection RxNorm: 0534298 Milliliter(s) Inj 05/07/2013 05/07/2013 Inactive levofloxacin 500 mg tablet RxNorm: 673957 1 Tablet(s) PO daily pt to take 500mg on day#1, 3, 5, 7 and 1/2 tablet on days 2, 4, 6, and 8 05/0705/14/2013 Inactive Lyrica 50 mg capsule RxNorm: 147275 1 Capsule(s) PO TID 201206/26/2013 Inactive hydrocodone 5 mg-acetaminophen 500 mg tablet RxNorm: 281555 1 Tablet(s) PO Q6 PRN 04/22/2013 06/09/2013 Inactive Zofran 4 mg tablet RxNorm: 530366 1 Tablet(s) PO Q4-6H 201207/14/2013 Inactive Zofran 4 mg tablet RxNorm: 416619 1 Tablet(s) PO Q6 PRN 04/0404/08/2013 Inactive hydrocodone 5 mg-acetaminophen 500 mg tablet RxNorm: 334217 1 Tablet(s) PO Q6 PRN 03/21/2013 04/21/2013 Inactive Diflucan 150 mg tablet RxNorm: 152346 1 Tablet(s) PO every other day 1 pill po every other day x 8 doses 03/19/201306/26 Inactive potassium chloride ER 10 mEq tablet,extended release RxNorm: 904700 1 Tablet(s) PO QDAY PRN take with lasix 03/07/201302/2014 Inactive potassium chloride ER 10 mEq tablet,extended release RxNorm: 039667 1 Tablet(s) PO QDAY PRN take with lasix 03/04/2013 Inactive fluconazole 150 mg tablet RxNorm: 025115 1 Tablet(s) PO daily 03/01/2013 02/28/2013 Inactive fluconazole 150 mg tablet RxNorm: 311537 1 Tablet(s) PO daily 03/01/2013 03/05/2013 Inactive Combivent 18 mcg-103 mcg/actuation Aerosol Inhaler RxNorm: 851399 2 Puff(s) INH QID 02/12/2013 02/12/2013 Inactive Zofran 4 mg tablet RxNorm: 963510 1 Tablet(s) PO Q6 PRN 02/1104/03/2013 Inactive Lasix 20 mg tablet RxNorm: 457192 1 Tablet(s) PO BID one pill in morning and one pill in afternoon (3pm) 02/04/2013 Inactive Xopenex HFA 45 mcg/actuation Aerosol Inhaler RxNorm: 132979 2 INH QID 01/29/2013 09/21/2015 Inactive Effexor XR 37.5 mg capsule,extended release RxNorm: 258221 2 q am and 1 at hs Capsule(s) PO TAKE 2 CAPSULES BY MOUTH EVERY MORNING AND 1 CAPSULE EVERY NIGHT AT BEDTIME 01/29/2013 02/15/2016 Inactive fluconazole 150 mg tablet RxNorm: 098731 1 Tablet(s) PO daily 01/29/2013 02/02/2013 Inactive hydrocodone 5 mg-acetaminophen 500 mg tablet RxNorm: 049780 1 Tablet(s) PO Q6 PRN 01/29/2013 03/20/2013 Inactive Effexor XR 37.5 mg capsule,extended release RxNorm: 660345 Capsule(s) PO 01/29/2013 08/28/2013 Inactive TAKE 2 CAPSULES BY MOUTH EVERY MORNING AND 1 CAPSULE EVERY NIGHT AT BEDTIME doxycycline hyclate 100 mg tablet RxNorm: 476440 1 Tablet(s) PO BID 01/01/2013 01/10/2013 Inactive doxycycline hyclate 100 mg tablet RxNorm: 312448 1 Tablet(s) PO BID 01/01/2013 12/31/2012 Inactive Synthroid 75 mcg tablet RxNorm: 081270 1 Tablet(s) PO daily 06/29/2013 Inactive Synthroid 75 mcg tablet RxNorm: 216216 1 Tablet(s) PO daily 12/31/2012 Inactive Xanax 0.5 mg tablet RxNorm: 381808 Tablet(s) PO TAKE 1/2 TO 1 TABLET BY MOUTH EVERY 8 HOURS NEEDED FOR ANXIETY 12/27/2012 05/06/2013 Inactive (Appended: Controlled substance [facility]Rx [facility] [id number]|342476|1|0|1) Lasix 20 mg tablet RxNorm: 739564 1 Tablet(s) PO daily 201202/03/2013 Inactive Santyl 250 unit/gram Topical Ointment RxNorm: 3911603 1 Application TOP daily 12/20/2012 12/29/2012 Inactive Levaquin 500 mg tablet RxNorm: 653922 1 Tablet(s) PO daily 05/201212/26/2012 Inactive acyclovir 400 mg tablet RxNorm: 524713 1 Tablet(s) PO TID 12/0312/09/2012 Inactive acyclovir 400 mg tablet RxNorm: 246830 1 Tablet(s) PO TID 12/0312/02/2012 Inactive fluconazole 150 mg tablet RxNorm: 271340 1 Tablet(s) PO daily 11/26/2012 11/30/2012 Inactive Effexor XR 37.5 mg capsule,extended release RxNorm: 256060 Capsule(s) PO TAKE 2 CAPSULES BY MOUTH EVERY MORNING AND 1 CAPSULE EVERY NIGHT AT BEDTIME 11/14/2012 01/28/2013 Inactive albuterol sulfate 1.25 mg/3 mL solution for nebulization RxNorm: 830311 3 Milliliter(s) INH TID 10/29/20122012 Inactive 1 box Cartia XT 180 mg capsule,extended release RxNorm: 931878 1 Capsule(s) PO daily TAKE 1 CAPSULE BY MOUTH AT BEDTIME ..TAKE THIS IN ADDITION TO 240 MG IN THE MORNING 10/29/2012 11/26/2013 Inactive acyclovir 800 mg tablet RxNorm: 684770 1 Tablet(s) PO BID 10/2911/04/2012 Inactive Diflucan 150 mg tablet RxNorm: 883339 1 Tablet(s) PO daily 10/14/2012 Inactive TAKE 1 TABLET BY MOUTH EVERY DAY Toprol XL 100 mg tablet,extended release RxNorm: 612404 1 Tablet(s) PO BID 10/11/2012 09/05/2013 Inactive Zithromax Z-Babak 250 mg tablet RxNorm: 212726 Tablet(s) PO UD as directed. 1 refill , please take back to back 10/05/2012 No Stop Date Active Kenalog 40 mg/mL Susp for Injection RxNorm: 7559691 1 Milliliter(s) Inj QID 09/21/2012 05/07/2013 Inactive fluconazole 150 mg tablet RxNorm: 560936 1 Tablet(s) PO every other day x 5 doses 09/12/2012 11/25/2012 Inactive levothyroxine 50 mcg tablet RxNorm: 542546 1 Tablet(s) PO daily 09/06/2012 12/31/2012 Inactive atorvastatin 40 mg tablet RxNorm: 484700 1 Tablet(s) PO daily 09/06/2012 08/31/2013 Inactive TAKE 1 TABLET BY MOUTH DAILY (THIS IS AN INCREASE IN DOSAGE) Xanax 0.5 mg tablet RxNorm: 931853 Tablet(s) PO TAKE 1/2 TO 1 TABLET BY MOUTH EVERY 8 HOURS NEEDED FOR ANXIETY 08/27/2012 12/26/2012 Inactive (Appended: Controlled substance eRx refill - RxReferenceNumber: [id number]|1|0|1) Zofran 4 mg tablet RxNorm: 209933 1 Tablet(s) PO Q6 PRN 08/1302/10/2013 Inactive Cipro 500 mg tablet RxNorm: 506020 1 Tablet(s) PO BID 201208/07/2012 Inactive Cipro 500 mg tablet RxNorm: 368729 1 Tablet(s) PO BID 201208/12/2012 Inactive Flagyl 500 mg tablet RxNorm: 262836 1 Tablet(s) PO TID 201208/12/2012 Inactive cefdinir 300 mg capsule RxNorm: 646806 1 Capsule(s) PO BID 08/201207/29/2012 Inactive nystatin 100,000 unit/mL Oral Susp RxNorm: 950125 6 Unit(s) PO QID 07/06/2012 07/15/2012 Inactive Kenalog 40 mg/mL Susp for Injection RxNorm: 0097441 1 Milliliter(s) Inj 07/06/2012 07/06/2012 Inactive Zithromax 500 mg tablet RxNorm: 1127559 1 Tablet(s) PO daily 07/10/2012 Inactive metformin 850 mg tablet RxNorm: 600042 1/2 Tablet(s) PO TID 09/201208/24/2012 Inactive TAKE 1 TABLET BY MOUTH IN THE MORNING, 1/2 TABLET AT NOON, AND 1 TABLET IN THE EVENING Lyrica 50 mg capsule RxNorm: 757129 1 Capsule(s) PO TID 201206/25/2012 Inactive Diflucan 150 mg tablet RxNorm: 046583 1 Tablet(s) PO daily 05/201206/25/2012 Inactive TAKE 1 TABLET BY MOUTH EVERY DAY Levaquin 500 mg tablet RxNorm: 275694 1 Tablet(s) PO daily 06/19/2012 Inactive Pneumovax 23 25 mcg/0.5 mL Injection RxNorm: 986960 1/2 Milliliter(s) Inj 06/07/2012 06/07/2012 Inactive metformin 850 mg tablet RxNorm: 294906 1/2 Tablet(s) PO BID 06/25/2012 Inactive TAKE 1 TABLET BY MOUTH IN THE MORNING, 1/2 TABLET AT NOON, AND 1 TABLET IN THE EVENING cefdinir 300 mg capsule RxNorm: 714913 1 Capsule(s) PO BID 02/201305/30/2012 Inactive cefdinir 300 mg capsule RxNorm: 582112 1 Capsule(s) PO BID 02/201306/06/2012 Inactive prednisone 10 mg tablets in a dose pack RxNorm: 133489 Tablet(s) PO UD 6-5-4-3-2- 1 05/31/2012 05/06/2013 Inactive Cipro 500 mg tablet RxNorm: 159655 1 Tablet(s) PO BID 201206/03/2012 Inactive Xanax 0.5 mg tablet RxNorm: 244208 Tablet(s) PO TAKE 1/2 TO 1 TABLET BY MOUTH EVERY 8 HOURS NEEDED FOR ANXIETY 05/28/2012 08/27/2012 Inactive (Appended: Controlled substance eRx refill - RxReferenceNumber: [id number]|1|0|1) Cartia XT 180 mg capsule,extended release RxNorm: 350531 Capsule(s) PO TAKE 1 CAPSULE BY MOUTH AT BEDTIME ..TAKE THIS IN ADDITION TO 240 MG IN THE MORNING 05/24/2012 10/28/2012 Inactive Diflucan 150 mg tablet RxNorm: 763687 1 Tablet(s) PO daily 06/201205/26/2012 Inactive TAKE 1 TABLET BY MOUTH EVERY DAY Cartia XT 240 mg capsule,extended release RxNorm: 764987 1 Capsule(s) PO QAM 05/23/2012 09/06/2012 Inactive in addition to 180mg q pm omeprazole 20 mg capsule,delayed release RxNorm: 474863 Capsule(s) PO TAKE 1 CAPSULE BY MOUTH TWICE DAILY 05/21/2012 Inactive diltiazem ER (XR/XT) 240 mg capsule,extended release, controlled RxNorm: 777359 1 Capsule(s) PO daily TAKE ONE CAPSULE BY MOUTH EVERY DAY 05/21/2012 05/30/2013 Inactive Toprol XL 25 mg tablet,extended release RxNorm: 564631 1 Tablet(s) PO QPM take with 50mg (1/2 tab of 100mg) each evening. Continue 100mg in the morning. 05/17/2012 05/27/2012 Inactive Activella 0.5 mg-0.1 mg tablet RxNorm: 0523538 Tablet(s) PO TAKE 1 TABLET BY MOUTH DAILY FOR MENOPAUSAL SYMPTOM 05/09/2012 05/16/2013 Inactive colestipol 1 gram tablet RxNorm: 3696545 Tablet(s) PO TAKE 1 TABLET BY MOUTH TWICE DAILY 05/08/2012 04/21/2016 Inactive Kenalog 40 mg/mL Susp for Injection RxNorm: 7597505 1 Milliliter(s) Inj 05/02/2012 05/02/2012 Inactive Xanax 0.5 mg tablet RxNorm: 055427 Tablet(s) PO 04/16/2012 05/28/2012 Inactive TAKE 1/2 TO 1 TABLET BY MOUTH EVERY 8 HOURS NEEDED FOR ANXIETY (Appended: Controlled substance eRx refill - RxReferenceNumber: [id number]|1|0|1) Diflucan 150 mg tablet RxNorm: 393920 1 Tablet(s) PO daily 05/22/2012 Inactive TAKE 1 TABLET BY MOUTH EVERY DAY Cipro 500 mg tablet RxNorm: 889177 1 Tablet(s) PO BID 201104/19/2012 Inactive Zithromax Z-Babak 250 mg tablet RxNorm: 317812 Tablet(s) PO UD 05/30/2012 Inactive metformin 850 mg tablet RxNorm: 685969 Tablet(s) PO take one pill by mouth in AM, 1/2 at noon, and 1 pill in the evening. 03/16/2012 06/06/2012 Inactive TAKE 1 TABLET BY MOUTH IN THE MORNING, 1/2 TABLET AT NOON, AND 1 TABLET IN THE EVENING Xanax 0.5 mg tablet RxNorm: 275684 Tablet(s) PO 03/05/2012 04/15/2012 Inactive TAKE 1/2 TO 1 TABLET BY MOUTH EVERY 8 HOURS NEEDED FOR ANXIETY (Appended: Controlled substance eRx refill - RxReferenceNumber: [id number]|0|1) potassium chloride ER 10 mEq tablet,extended release RxNorm: 643986 1 Tablet(s) PO QDAY PRN take with lasix 03/05/201204/2013 Inactive potassium chloride ER 10 mEq tablet,extended release RxNorm: 777003 1 Tablet(s) PO QDAY PRN take with lasix 02/28/2012 Inactive Lasix 20 mg tablet RxNorm: 118417 Tablet(s) PO QDAY PRN 02/2708/25/2012 Inactive doxycycline hyclate 100 mg capsule RxNorm: 284502 1 Capsule(s) PO BID 02/27/2012 03/04/2012 Inactive Effexor XR 37.5 mg capsule,extended release RxNorm: 936021 Capsule(s) PO 02/26/2012 01/28/2013 Inactive TAKE 2 CAPSULES BY MOUTH EVERY MORNING AND 1 CAPSULE EVERY NIGHT AT BEDTIME Lomotil 2.5 mg-0.025 mg tablet RxNorm: 6914281 Tablet(s) PO 07/201103/05/2012 Inactive 1 after each loose bm limit 4 per day doxycycline hyclate 100 mg capsule RxNorm: 709065 1 Capsule(s) PO BID 02/15/2012 02/21/2012 Inactive Diflucan 150 mg tablet RxNorm: 020781 Tablet(s) PO daily 201102/21/2012 Inactive TAKE 1 TABLET BY MOUTH EVERY DAY colestipol,micronized 1 gram tablet RxNorm: 4205695 Tablet(s) PO 02/06/2012 04/21/2016 Inactive TAKE 1 TABLET BY MOUTH TWICE DAILY Effexor XR 37.5 mg capsule,extended release RxNorm: 288529 Capsule(s) PO 02/06/2012 02/16/2016 Inactive TAKE 2 CAPSULES BY MOUTH EVERY MORNING AND 1 CAPSULE EVERY NIGHT AT BEDTIME potassium chloride ER 10 mEq tablet,extended release RxNorm: 114446 1 Tablet(s) PO QDAY PRN take with lasix 02/01/201212/2011 Inactive Levaquin 500 mg tablet RxNorm: 027873 1 Tablet(s) PO daily 04/201202/07/2012 Inactive Diflucan 150 mg tablet RxNorm: 288075 Tablet(s) PO 01/27/2012 02/14/2012 Inactive TAKE 1 TABLET BY MOUTH EVERY DAY Effexor XR 37.5 mg capsule,extended release RxNorm: 354450 Capsule(s) PO 01/05/2012 02/05/2012 Inactive TAKE 2 CAPSULES BY MOUTH EVERY MORNING , AND 1 CAPSULE BY MOUTH EVERY NIGHT AT BEDTIME Effexor XR 37.5 mg capsule,extended release RxNorm: 621131 Capsule(s) PO 12/29/2011 01/04/2012 Inactive TAKE 2 CAPSULES BY MOUTH EVERY MORNING , AND 1 CAPSULE BY MOUTH EVERY NIGHT AT BEDTIME Diflucan 150 mg tablet RxNorm: 673556 Tablet(s) PO 12/29/2011 04/09/2012 Inactive TAKE 1 TABLET BY MOUTH EVERY DAY Cipro 500 mg tablet RxNorm: 576675 1 Tablet(s) PO BID 201101/07/2012 Inactive Toprol XL 100 mg tablet,extended release RxNorm: 518210 Tablet(s) PO as doctor directed one tab in am and 1/2 at night 11/30/2011 10/10/2012 Inactive Phenergan 25 mg/mL Injection RxNorm: 634730 Milliliter(s) Inj 11/30/2011 11/30/2011 Inactive Toprol XL 100 mg 24 hr Tab RxNorm: 905620 1.5 Tablet(s) PO as doctor directed one tab in am and 1/2 at night 11/17/201102/2012 Inactive Xopenex HFA 45 mcg/actuation Aerosol Inhaler RxNorm: 784147 2 INH QID 11/08/2011 12/01/2012 Inactive Effexor XR 150 mg 24 hr Cap RxNorm: 816612 1 Capsule(s) PO daily 10/24/2011 01/04/2012 Inactive Xanax 0.5 mg tablet RxNorm: 527715 1/2-1 Tablet(s) PO Q8 PRN 10/20/2011 03/05/2012 Inactive levothyroxine 25 mcg tablet RxNorm: 448273 Tablet(s) PO 201109/05/2012 Inactive TAKE 1 TABLET BY MOUTH DAILY Xanax 0.5 mg Tab RxNorm: 935507 1/2-1 Tablet(s) PO Q8 PRN 09/26/2011 10/19/2011 Inactive potassium chloride ER 10 mEq Tab RxNorm: 592995 1 Tablet(s) PO daily 09/20/2011 09/24/2011 Inactive Lasix 20 mg Tab RxNorm : 522114 1 Tablet(s) PO daily 09/20/2011 09/24/2011 Inactive Xanax 0.5 mg Tab RxNorm: 039438 1/2-1 Tablet(s) PO Q8 PRN 09/12/2011 09/25/2011 Inactive Xanax 0.5 mg Tab RxNorm: 207177 1/2-1 Tablet(s) PO Q8 PRN 08/24/2011 09/11/2011 Inactive Lipitor 20 mg tablet RxNorm: 563095 Tablet(s) PO 08/22/2011 09/05/2012 Inactive TAKE 1 TABLET BY MOUTH DAILY (THIS IS AN INCREASE IN DOSAGE) Cipro 500 mg Tab RxNorm: 204837 1 Tablet(s) PO BID 201110/24/2011 Inactive Flagyl 500 mg Tab RxNorm: 877099 1 Tablet(s) PO TID 201110/24/2011 Inactive Diflucan 150 mg Tab RxNorm: 639114 1 Tablet(s) PO daily 201110/24/2011 Inactive Kenalog 40 mg/mL Susp for Injection RxNorm: 5592565 1 Milliliter(s) Inj 08/01/2011 10/24/2011 Inactive FreeStyle Lancets RxNorm: 1 test Miscellaneous TID 201107/08/2014 Inactive dispense quantity sufficient for three times daily testing for diabetes FreeStyle Test strips RxNorm: 1 Miscellaneous BID 07/21/2011 08/13/2012 Inactive please give lancets alsodx 250.02 Xanax 0.25 mg Tab RxNorm: 183166 1 Tablet(s) PO Q8 PRN 07/06 No Stop Date Active colestipol 1 gram Tab RxNorm: 1190672 Tablet(s) PO 07/04/2011 04/21/2016 Inactive TAKE 1 TABLET BY MOUTH TWICE DAILY DIRECTED colestipol 1 gram tablet RxNorm: 7297853 1 Tablet(s) PO BID 07/03/2011 Inactive Cartia XT 180 mg capsule,extended release RxNorm: 427391 1 Capsule(s) PO QHS 06/30/2011 11/16/2011 Inactive in addition to 240mg q am venlafaxine 37.5 mg Tab RxNorm: 474946 1 Tablet(s) PO BID 06/2406/29/2011 Inactive prednisone 5 mg Tab RxNorm: 170955 Tablet(s) PO UD 2011 10/24/2011 Inactive six day taper #21 Lyrica 50 mg capsule RxNorm: 591161 1 Capsule(s) PO TID 201108/18/2011 Inactive Diflucan 150 mg tablet RxNorm: 691504 1 Tablet(s) PO daily 06/24/2011 Inactive levofloxacin 500 mg Tab RxNorm: 609766 1 Tablet(s) PO daily 08/15/2011 Inactive azithromycin 250 mg Tab RxNorm: 212238 PO 05/23/2011 06/20/2011 Inactive omeprazole 20 mg capsule,delayed release RxNorm: 522639 Capsule(s) PO 05/10/2011 05/20/2012 Inactive TAKE 1 CAPSULE BY MOUTH TWICE DAILY;Patient requests 90 day supply diltiazem ER (XR/XT) 240 mg capsule,extended release, controlled RxNorm: 969044 Capsule(s) PO 04/19/2011 05/21/2012 Inactive TAKE 1 CAPSULE BY MOUTH EVERY MORNING;Patient requests 90 day supply Kenalog 40 mg/mL Susp for Injection RxNorm: 6210460 1 Milliliter(s) Inj 04/18/2011 06/20/2011 Inactive clindamycin 300 mg Cap RxNorm: 617630 1 Capsule(s) PO BID 04/1806/20/2011 Inactive lisinopril-hydrochlorothiazide 20 mg-12.5 mg Tab RxNorm: 728284 2 Tablet(s) PO daily 04/18/2011 10/24/2011 Inactive fluconazole 150 mg Tab RxNorm: 776577 1 Tablet(s) PO daily 07/201006/20/2011 Inactive Activella 0.5 mg-0.1 mg tablet RxNorm: 6015076 Tablet(s) PO 05/201005/08/2012 Inactive TAKE 1 TABLET BY MOUTH DAILY FOR MENOPAUSAL SYMPTOM diltiazem ER (XR/XT) 240 mg Continuous Release Cap RxNorm: 469030 1 Capsule(s) PO daily 03/17/2011 03/16/2011 Inactive diltiazem ER (XR/XT) 240 mg Continuous Release Cap RxNorm: 371745 Capsule(s) PO 03/17/2011 06/20/2011 Inactive TAKE 1 CAPSULE BY MOUTH EVERY MORNING metformin 850 mg tablet RxNorm: 750232 1 Tablet(s) PO as doctor directed take one pill by mouth in AM, 1/2 at noon, and 1 pill in the evening. 01/21/2011 04/20/2011 Inactive Xopenex 1.25 mg/3 mL solution for nebulization RxNorm: 360277 3 Milliliter(s) INH Q6 PRN No Start Date Active Lomotil 2.5 mg-0.025 mg tablet RxNorm: 1625456 Tablet(s) PO No Start Date 02/21/2012 Inactive 1 after each loose bm limit 4 per day Novolog Flexpen U-100 Insulin aspart 100 unit/mL subcutaneous RxNorm: 8649541 10 Unit(s) SQ AC No Start Date 10/26 Inactive with sliding scale-Dr Yanna Judd FlexTouch U-100 100 unit/mL (3 mL) subcutaneous insulin pen RxNorm: 7805849 40 Unit(s) SQ daily No Start Date Inactive gabapentin 600 mg tablet RxNorm: 564011 1 Tablet(s) PO TID No Start Date 06/26/2013 Inactive Effexor XR 37.5 mg capsule,extended release RxNorm: 730896 1 Capsule(s) PO BID No Start Date 10/23/2011 Inactive Levemir FlexTouch 100 unit/mL (3 mL) subcutaneous insulin pen RxNorm: 274121 50 Unit(s) SQ BID No Start Date 04/24/2017 Inactive Combivent Respimat 20 mcg-100 mcg/actuation solution for inhalation RxNorm: 1934232 1 INH QID No Start Date 05/11/2014 Inactive Xanax 0.5 mg Tab RxNorm: 599724 1/2-1 Tablet(s) PO Q8 PRN No Start Date 08/23/2011 Inactive Xopenex HFA 45 mcg/actuation Aerosol Inhaler RxNorm: 313757 2 INH QID No Start Date 11/07/2011 Inactive promethazine 25 mg tablet RxNorm: 020237 1 Tablet(s) PO Q8 as needed No Start Date 08/12/2015 Inactive colestipol 1 gram Tab RxNorm: 1500754 1 Tablet(s) PO BID No Start Date 07/03/2011 Inactive Cartia XT 240 mg capsule,extended release RxNorm: 374394 1 Capsule(s) PO QAM No Start Date 05/22/2012 Inactive in addition to 180mg q pm Lipitor 20 mg Tab RxNorm: 799807 1 Tablet(s) PO daily No Start Date 08/21/2011 Inactive FreeStyle Test Strips RxNorm: 1 Miscellaneous BID No Start Date 07/20/2011 Inactive Toujeo SoloStar U-300 Insulin 300 unit/mL (1.5 mL) subcutaneous pen RxNorm: 3012587 40 Unit(s) SQ BID No Start Date 10/26/2017 Inactive Diflucan 150 mg tablet RxNorm: 713614 1 Tablet(s) PO daily 1 pill po every other day x 8 doses No Start Date 03/18/2013 Inactive hydrocodone 5 mg-acetaminophen 500 mg tablet RxNorm: 115972 1 Tablet(s) PO Q6 PRN No Start Date 01/28/2013 Inactive Lasix 20 mg tablet RxNorm: 758725 Tablet(s) PO QDAY PRN No Start Date 02/27/2012 Inactive Promethazine VC 6.25 mg-5 mg/5 mL Syrup RxNorm: 1324925 1-2 PO Q6 PRN No Start Date 10/07/2013 Inactive promethazine 25 mg tablet RxNorm: 685279 1 Tablet(s) PO Q6 PRN No Start Date 02/09/2017 Inactive digoxin 125 mcg tablet RxNorm: 177994 1 Tablet(s) PO daily No Start Date 06/20/2017 Inactive Xanax 0.25 mg Tab RxNorm: 402201 1 Tablet(s) PO Q8 PRN No Start Date 07/05/2011 Inactive Diflucan 150 mg tablet RxNorm: 483457 1 Tablet(s) PO every other day x 4 doses No Start Date 04/09/2014 Inactive Carafate 100 mg/mL Oral Susp RxNorm: 908813 2 Teaspoon(s) PO daily No Start Date 10/24/2011 Inactive prednisone 5 mg Tab RxNorm: 161281 Tablet(s) PO UD No Start Date 06/22/2011 Inactive six day taper #21 Tessalon Perles 100 mg capsule RxNorm: 711672 2 Capsule(s) PO TID as needed No Start Date 05/16/2017 Inactive Bactroban 2 % topical ointment RxNorm: 393139 1 Application TOP BID No Start Date 09/26/2013 Inactive Phenergan 25 mg tablet RxNorm: 546728 1 Tablet(s) PO Q8 as needed nausea No Start Date 06/28/2015 Inactive flecainide 50 mg tablet RxNorm: 476143 1 Tablet(s) PO BID No Start Date 02/01/2016 Inactive Activella 0.5 mg-0.1 mg Tab RxNorm: 2128919 1 Tablet(s) PO daily No Start Date 03/21/2011 Inactive hydrocodone 10 mg-acetaminophen 325 mg tablet RxNorm: 651625 1 Tablet(s) PO Q6 as needed No Start Date 02/04/2016 Inactive lisinopril 20 mg Tab RxNorm: 614643 1 Tablet(s) PO daily No Start Date 06/20/2011 Inactive prednisone 10 mg tablets in a dose pack RxNorm: 459974 Tablet(s) PO UD 6-5-4-3-2- 1 No Start Date 05/30/2012 Inactive hydrocodone 7.5 mg-acetaminophen 325 mg tablet RxNorm: 878095 1 Tablet(s) PO Q6 PRN No Start Date 10/06/2013 Inactive hyoscyamine 0.125 mg sublingual tablet RxNorm: 4458287 1 Tablet(s) SL TID as needed No Start Date 05/16/2017 Inactive Cartia XT 180 mg 24 hr Cap RxNorm: 565356 1 Capsule(s) PO QHS No Start Date 06/29/2011 Inactive in addition to 240mg q am Zofran 4 mg tablet RxNorm: 848524 1 Tablet(s) PO Q6 PRN No Start Date 08/12/2012 Inactive omeprazole 20 mg Cap, Delayed Release RxNorm: 472124 1 Capsule(s) PO BID No Start Date 05/09/2011 Inactive venlafaxine 37.5 mg Tab RxNorm: 261987 1 Tablet(s) PO BID No Start Date 10/24/2011 Inactive Novolog Flexpen U-100 Insulin aspart 100 unit/mL subcutaneous RxNorm: 2904899 10 units with meals plus SSI in [...] 8u 301-325 Vesicare 10 mg tablet RxNorm: 984496 1 Tablet(s) PO daily No Start Date 09/28/2015 Inactive levothyroxine 25 mcg Tab RxNorm: 017098 1 Tablet(s) PO daily No Start Date 10/18/2011 Inactive Zithromax Z-Babak 250 mg tablet RxNorm: 596933 Tablet(s) PO UD No Start Date 04/01/2012 Inactive Januvia 100 mg tablet RxNorm: 098278 1 Tablet(s) PO daily No Start Date 05/22/2013 Inactive Lantus Solostar 100 unit/mL (3 mL) subcutaneous insulin pen RxNorm: 059207 Unit( s) SQ No Start Date 04/17/2017 Inactive 10 units q am and 50units at night fluconazole 150 mg tablet RxNorm: 785610 1 Tablet(s) PO every other day x 5 doses No Start Date 09/11/2012 Inactive Toprol XL 25 mg 24 hr Tab RxNorm: 078654 1 Tablet(s) PO daily No Start Date 11/16/2011 Inactive Medication Administered Medication Codes Instructions Start Date Status Kenalog 40 mg/mL suspension for injection RxNorm: 0060175 Milliliter 06/26/2015 No longer Active Kenalog 40 mg/mL suspension for injection RxNorm: 8375756 Milliliter 05/07/2013 No longer Active Kenalog 40 mg/mL Susp for Injection RxNorm: 9274488 1Milliliter 07/06/2012 No longer Active Pneumovax 23 25 mcg/0.5 mL Injection RxNorm: 306024 1/2Milliliter 06/07/2012 No longer Active Kenalog 40 mg/mL Susp for Injection RxNorm: 9336512 1Milliliter 05/02/2012 No longer Active Phenergan 25 mg/mL Injection RxNorm: 699888 Milliliter 11/30/2011 No longer Active Immunizations Vaccine [...] of breast ICD-10: Z12.31 ICD-9: V76.12 10/27/2017 Unspecified injury of head, initial encounter ICD-10: S09.90XA ICD-9: 959.01 09/27/2017 Type 2 diabetes mellitus with hyperglycemia ICD-10: E11.65 ICD-9: 250.02 09/27/2017 Chronic pain syndrome ICD-10: G89.4 ICD-9: [...] (primary) hypertension ICD-10: I10 ICD-9: 401.9 04/18/2017 Paroxysmal atrial fibrillation ICD-10: I48.0 ICD-9: 427.31 03/27/2017 Hypokalemia ICD-10: E87.6 ICD-9: 276.8 03/27/2017 Generalized abdominal pain ICD-10: R10.84 ICD-9: [...] legs syndrome ICD-10: G25.81 ICD-9: 333.94 01/16/2017 Diplopia ICD-10: H53.2 ICD-9: 368.2 12/13/2016 Other acute sinusitis ICD-10: J01.80 ICD-9: 461.8 12/13/2016 Fasciculation ICD-10: R25.3 ICD-9: 781.0 11/11/2016 Unilateral primary osteoarthritis, right knee ICD-10: M17.11 ICD-9: 715.96 11/11/2016 Other obesity due to excess calories ICD-10: E66.09 ICD-9: 278.00 11/11/2016 Zoster without complications ICD-10: B02.9 ICD-9: 053.9 11/11/2016 Vomiting, unspecified ICD-10: R11.10 ICD-9: 787.03 [...] cell count ICD-10: D72.828 ICD-9: 288.69 03/11/2016 Unspecified asthma, uncomplicated ICD-10: J45.909 ICD-9: 493.90 02/26/2016 VAC STREP PNEUMONIAE-FLU ICD-10: Z23 ICD-9: V06.6 02/26/2016 Other conjunctivitis ICD-10: H10.89 ICD-9: 372.33 02/26/2016 Encounter for immunization ICD-10: Z23 ICD-9: V03.82 02/26/2016 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 ICD-9: [...] ICD-9: 786.07 06/10/2013 OBESITY ICD-9: 278.00 06/10/2013 ACUTE BRONCHITIS ICD-9: 466.0 05/07/2013 SACROILIITIS NEC ICD-9: 720.2 05/07/2013 COPD (chronic obstructive pulmonary disease) with [...] 26.2 pg 02/20/2018 Cbc With Differential Ord2 Sierra% 5.7 % 02/20/2018 Cbc With Differential Ord2 MCHC 30.1 pg 02/20/2018 Cbc With Differential Ord2 Eos% 1.0 % 02/20/2018 Cbc With Differential Ord2 Baso% 0.2 % 02/20/2018 Cbc With Differential Ord2 PLT 341 K/ul 02/20/2018 Cbc With Differential Ord2 Neut ABS# 6.41 K/ul 02/20/2018 Cbc With Differential Ord2 RDW 16.7 % 02/20/2018 Cbc With Differential Ord2 Lymph ABS# 1.61 K/ul 02/20/2018 Cbc With Differential Ord2 [place] ABS# 0.5 K/ul 02/20/2018 Cbc With Differential Ord2 Eos ABS# 0.1 K/ul 02/20/2018 Cbc With Differential Ord2 Baso ABS# 0.0 K/ul 02/20/2018 Comp Metabolic Taf573 NA 134 mEq/L 02/20/2018 Comp Metabolic Pcv265 K 3.9 mEq/L 02/20/2018 Comp Metabolic Xjv604 CL 90 mEq/L 02/20/2018 Comp Metabolic Eem499 CO2 32.0 mEq/L 02/20/2018 Comp Metabolic Hbt191 ANION GAP 16 02/20/2018 Comp Metabolic Xfk952 GLUCOSE 287 mg/dL 02/20/2018 Comp Metabolic Emp940 Creat 0.8 mg/dL 02/20/2018 Comp Metabolic Gkt711 eGFR 72 ml/min/1.73m2 02/20/2018 Comp Metabolic Ybc334 BUN 13 mg/dL 02/20/2018 Comp Metabolic Gtj044 B/C Ratio 15.5 Ratio 02/20/2018 Comp Metabolic Zzu344 CALCIUM 9.0 mg/dL 02/20/2018 Comp Metabolic Ugb996 ALK PHOS 120 U/L 02/20/2018 Comp Metabolic Ikc824 AST(SGOT) 21 U/L 02/20/2018 Comp Metabolic Kti745 ALT(SGPT) 17 U/L 02/20/2018 Comp Metabolic Ito531 BILI T 0.4 mg/dL 02/20/2018 Comp Metabolic Edq442 ALBUMIN 3.8 g/dL 02/20/2018 Comp Metabolic Fpi032 TPRO 6.9 g/dL 02/20/2018 Comp Metabolic Ygo485 GLOB 3.1 g/dL 02/20/2018 Comp Metabolic Bmk343 A/G Ratio 1.3 Ratio 02/20/2018 Comp Metabolic Uvr715 Osmo 279 mOsmo 02/20/2018 Vitamin D 25 Oh Kwv6543 VITAMIN D, 25 HYDROXY 26.48 ng/mL Digoxin Ord9 DIGOXIN 0.7 NG/ML 02/20/2018 Culture Urine [id number] URINE CULTURE SEE NOTES 12/01/2017 Urine Culture Ucult Complete >100,000 col/ml aerobic growth sent to ref lab 11/29/2017 Comp Metabolic Oqz646 NA 135 mEq/L 08/21/2017 Comp Metabolic Tlq033 K 4.6 mEq/L 08/21/2017 Comp Metabolic Cgn112 CL 92 mEq/L 08/21/2017 Comp Metabolic Oju389 CO2 32.0 mEq/L 08/21/2017 Comp Metabolic Cmm088 ANION GAP 16 08/21/2017 Comp Metabolic Gpc311 GLUCOSE 298 mg/dL 08/21/2017 Comp Metabolic Cog078 Creat 1.1 mg/dL 08/21/2017 Comp Metabolic Vir267 eGFR 54 ml/min/1.73m2 08/21/2017 Comp Metabolic Pja110 BUN 22 mg/dL 08/21/2017 Comp Metabolic Yps747 B/C Ratio 20.6 Ratio 08/21/2017 Comp Metabolic Mjf005 CALCIUM 9.3 mg/dL 08/21/2017 Comp Metabolic Lhe479 ALK PHOS 145 U/L 08/21/2017 Comp Metabolic Nlu401 AST(SGOT) 31 U/L 08/21/2017 Comp Metabolic Upx768 ALT(SGPT) 19 U/L 08/21/2017 Comp Metabolic Ymy808 BILI T 0.3 mg/dL 08/21/2017 Comp Metabolic Krc749 ALBUMIN 3.8 g/dL 08/21/2017 Comp Metabolic Ytw756 TPRO 7.1 g/dL 08/21/2017 Comp Metabolic Nmp729 GLOB 3.3 g/dL 08/21/2017 Comp Metabolic Bti124 A/G Ratio 1.2 Ratio 08/21/2017 Comp Metabolic Dlb451 Osmo 285 mOsmo 08/21/2017 Cbc With Differential Ord2 WBC 9.80 K/ul 08/18/2017 Cbc With Differential Ord2 RBC 4.30 M/ul 08/18/2017 Cbc With Differential Ord2 HGB 12.0 g/dl 08/18/2017 Cbc With Differential Ord2 HCT 37.9 % 08/18/2017 Cbc With Differential Ord2 Neut% 69.1 % 08/18/2017 Cbc With Differential Ord2 MCV 88.1 fl 08/18/2017 Cbc With Differential Ord2 Lymph% 20.9 % 08/18/2017 Cbc With Differential Ord2 MCH 27.9 pg 08/18/2017 Cbc With Differential Ord2 Sierra% 6.9 % 08/18/2017 Cbc With Differential Ord2 MCHC 31.7 pg 08/18/2017 Cbc With Differential Ord2 Eos% 2.7 % 08/18/2017 Cbc With Differential Ord2 Baso% 0.4 % 08/18/2017 Cbc With Differential Ord2 PLT 337 K/ul 08/18/2017 Cbc With Differential Ord2 RDW 15.4 % 08/18/2017 Cbc With Differential Ord2 Neut ABS# 6.77 K/ul 08/18/2017 Cbc With Differential Ord2 Lymph ABS# 2.05 K/ul 08/18/2017 Cbc With Differential Ord2 [place] ABS# 0.7 K/ul 08/18/2017 Cbc With Differential Ord2 Eos ABS# 0.3 K/ul 08/18/2017 Cbc With Differential Ord2 Baso ABS# 0.0 K/ul 08/18/2017 %Hba1C Ltl344 % HbA1c 58457-0 11.5 % 06/13/2017 %Hba1C Byd754 Gluc Ave 283 mg/dL 06/13/2017 Cbc With [...] 20.0 % 03/27/2017 Cbc With Differential Ord2 Sierra% 7.2 % 03/27/2017 Cbc With Differential Ord2 MCH 27.6 pg 03/27/2017 Cbc With Differential Ord2 Eos% 1.7 % 03/27/2017 Cbc With Differential Ord2 MCHC 30.8 pg 03/27/2017 Cbc With Differential Ord2 PLT 365 K/ul 03/27/2017 Cbc With Differential Ord2 Baso% 0.4 % 03/27/2017 Cbc With Differential Ord2 Neut ABS# 7.48 K/ul 03/27/2017 Cbc With Differential Ord2 RDW 14.9 % 03/27/2017 Cbc With Differential Ord2 Lymph ABS# 2.11 K/ul 03/27/2017 Cbc With Differential Ord2 [place] ABS# 0.8 K/ul 03/27/2017 Cbc With Differential Ord2 Eos ABS# 0.2 K/ul 03/27/2017 Cbc With Differential Ord2 Baso ABS# 0.0 K/ul 03/27/2017 Digoxin Ord9 DIGOXIN 0.5 NG/ML 03/27/2017 Comp Metabolic Eqs363 NA 136 mEq/L 03/27/2017 Comp Metabolic Zml888 K 4.1 mEq/L 03/27/2017 Comp Metabolic Dsy488 CL 90 mEq/L 03/27/2017 Comp Metabolic Gza977 CO2 34.0 mEq/L 03/27/2017 Comp Metabolic Ebz937 ANION GAP 16 03/27/2017 Comp Metabolic Lac758 GLUCOSE 325 mg/dL 03/27/2017 Comp Metabolic Qcd081 Creat 1.0 mg/dL 03/27/2017 Comp Metabolic Tow045 eGFR 62 ml/min/1.73m2 03/27/2017 Comp Metabolic Vbl848 BUN 15 mg/dL 03/27/2017 Comp Metabolic Ebi208 B/C Ratio 15.8 Ratio 03/27/2017 Comp Metabolic Mwh798 CALCIUM 9.5 mg/dL 03/27/2017 Comp Metabolic Rbf557 ALK PHOS 159 U/L 03/27/2017 Comp Metabolic Hhq089 AST(SGOT) 57 U/L 03/27/2017 Comp Metabolic Uvo172 ALT(SGPT) 32 U/L 03/27/2017 Comp Metabolic Ogj413 BILI T 0.4 mg/dL 03/27/2017 Comp Metabolic Xft226 ALBUMIN 4.3 g/dL 03/27/2017 Comp Metabolic Cnv494 TPRO 7.3 g/dL 03/27/2017 Comp Metabolic Avq426 GLOB 3.0 g/dL 03/27/2017 Comp Metabolic Aea327 A/G Ratio 1.4 Ratio 03/27/2017 Comp Metabolic Vtu539 Osmo 285 mOsmo 03/27/2017 Magnesium Ord90 Mag 2.4 mg/dL 02/27/2017 Comp Metabolic Hhl442 NA 138 mEq/L 02/27/2017 Comp Metabolic Hjl767 K 4.2 mEq/L 02/27/2017 Comp Metabolic Ftz250 CL 91 mEq/L 02/27/2017 Comp Metabolic Uph604 CO2 36.0 mEq/L 02/27/2017 Comp Metabolic Vdg069 ANION GAP 15 02/27/2017 Comp Metabolic Ozi429 GLUCOSE 297 mg/dL 02/27/2017 Comp Metabolic Axx086 Creat 0.9 mg/dL 02/27/2017 Comp Metabolic Mqv955 eGFR 71 ml/min/1.73m2 02/27/2017 Comp Metabolic Sgv347 BUN 12 mg/dL 02/27/2017 Comp Metabolic Hgm895 B/C Ratio 14.1 Ratio 02/27/2017 Comp Metabolic Wku398 CALCIUM 9.0 mg/dL 02/27/2017 Comp Metabolic Byb634 ALK PHOS 146 U/L 02/27/2017 Comp Metabolic Epr749 AST(SGOT) 28 U/L 02/27/2017 Comp Metabolic Fod622 ALT(SGPT) 12 U/L 02/27/2017 Comp Metabolic Mas453 BILI T 0.3 mg/dL 02/27/2017 Comp Metabolic Hhb347 ALBUMIN 3.8 g/dL 02/27/2017 Comp Metabolic Aph015 TPRO 6.6 g/dL 02/27/2017 Comp Metabolic Tui327 GLOB 2.8 g/dL 02/27/2017 Comp Metabolic Npj776 A/G Ratio 1.3 Ratio 02/27/2017 Comp Metabolic Fhw821 Osmo 286 mOsmo 02/27/2017 Digoxin Ord9 DIGOXIN <0.2 NG/ML 02/14/2017 Comp Metabolic Ocy878 NA 138 mEq/L 02/14/2017 Comp Metabolic Peq465 K 3.5 mEq/L 02/14/2017 Comp Metabolic Zgi536 CL 95 mEq/L 02/14/2017 Comp Metabolic Cqv326 CO2 29.0 mEq/L 02/14/2017 Comp Metabolic Nrh566 ANION GAP 18 02/14/2017 Comp Metabolic Tyc304 GLUCOSE 254 mg/dL 02/14/2017 Comp Metabolic Sla475 Creat 1.0 mg/dL 02/14/2017 Comp Metabolic Ken179 eGFR 62 ml/min/1.73m2 02/14/2017 Comp Metabolic Kwu182 BUN 14 mg/dL 02/14/2017 Comp Metabolic Jid875 B/C Ratio 14.6 Ratio 02/14/2017 Comp Metabolic Tbe172 CALCIUM 8.6 mg/dL 02/14/2017 Comp Metabolic Qer497 ALK PHOS 155 U/L 02/14/2017 Comp Metabolic Dyy234 AST(SGOT) 42 U/L 02/14/2017 Comp Metabolic Ygv361 ALT(SGPT) 28 U/L 02/14/2017 Comp Metabolic Yue968 BILI T 0.3 mg/dL 02/14/2017 Comp Metabolic Har642 ALBUMIN 3.6 g/dL 02/14/2017 Comp Metabolic Xjv876 TPRO 6.2 g/dL 02/14/2017 Comp Metabolic Evd936 GLOB 2.6 g/dL 02/14/2017 Comp Metabolic Dbr707 A/G Ratio 1.4 Ratio 02/14/2017 Comp Metabolic Bcd649 Osmo 285 mOsmo 02/14/2017 Vitamin D 25 Oh Azo6034 VITAMIN D, 25 HYDROXY 8.99 ng/mL Tsh [...] 28.0 pg 01/16/2017 Cbc With Differential Ord2 Sierra% 7.3 % 01/16/2017 Cbc With Differential Ord2 [...] 1.42 K/ul 01/16/2017 Cbc With Differential Ord2 [place] ABS# 0.6 K/ul 01/16/2017 Cbc With Differential Ord2 Eos ABS# 0.1 K/ul 01/16/2017 Cbc With Differential Ord2 Baso ABS# 0.0 K/ul 01/16/2017 Sed Rate Ord21 ESR 33 mm/hr 01/16/2017 C-Reactive Protein Qnt Crqnt CRP 3.3 mg/dl 01/16/2017 Free T4 Ask800 FREE T4 0.81 ng/dL 01/16/2017 %Hba1C Nfw415 % HbA1c 94886-6 12.4 % 01/16/2017 %Hba1C Yqt383 Gluc Ave 309 mg/dL 01/16/2017 Comp Metabolic Rgf119 NA 134 mEq/L 01/16/2017 Comp Metabolic Zph157 K 4.0 mEq/L 01/16/2017 Comp Metabolic Nvl006 CL 89 mEq/L 01/16/2017 Comp Metabolic Kan948 CO2 30.0 mEq/L 01/16/2017 Comp Metabolic Rda915 ANION GAP 19 01/16/2017 Comp Metabolic Rhs350 GLUCOSE 496 Result Verified By Repeat Analysis mg/dL 01/16/2017 Comp Metabolic Kyv302 Creat 0.8 mg/dL 01/16/2017 Comp Metabolic Lnf530 eGFR 73 ml/min/1.73m2 01/16/2017 Comp Metabolic Xmf537 BUN 13 mg/dL 01/16/2017 Comp Metabolic Cyv342 B/C Ratio 15.7 Ratio 01/16/2017 Comp Metabolic Hwo855 CALCIUM 8.8 mg/dL 01/16/2017 Comp Metabolic Jqt821 ALK PHOS 171 U/L 01/16/2017 Comp Metabolic Kvj448 AST(SGOT) 54 U/L 01/16/2017 Comp Metabolic Znm449 ALT(SGPT) 32 U/L 01/16/2017 Comp Metabolic Ylc370 BILI T 0.3 mg/dL 01/16/2017 Comp Metabolic Vab877 ALBUMIN 3.9 g/dL 01/16/2017 Comp Metabolic Hlu692 TPRO 6.5 g/dL 01/16/2017 Comp Metabolic Crz771 GLOB 2.6 g/dL 01/16/2017 Comp Metabolic Bql391 A/G Ratio 1.5 Ratio 01/16/2017 Comp Metabolic Xkk216 Osmo 290 mOsmo 01/16/2017 Comp Metabolic Yja182 NA 135 mEq/L 09/14/2016 Comp Metabolic Wgn964 K 5.2 mEq/L 09/14/2016 Comp Metabolic Jpk173 CL 93 mEq/L 09/14/2016 Comp Metabolic Kcm833 CO2 26.0 mEq/L 09/14/2016 Comp Metabolic Gxy939 ANION GAP 21 09/14/2016 Comp Metabolic Zxa447 GLUCOSE 326 mg/dL 09/14/2016 Comp Metabolic Xin047 Creat 1.0 mg/dL 09/14/2016 Comp Metabolic Lcr161 eGFR 57 ml/min/1.73m2 09/14/2016 Comp Metabolic Lql942 BUN 16 mg/dL 09/14/2016 Comp Metabolic Bzy187 B/C Ratio 15.5 Ratio 09/14/2016 Comp Metabolic Hvq315 CALCIUM 9.2 mg/dL 09/14/2016 Comp Metabolic Zkt573 ALK PHOS 160 U/L 09/14/2016 Comp Metabolic Ilc959 AST(SGOT) 49 U/L 09/14/2016 Comp Metabolic Sbp206 ALT(SGPT) 32 U/L 09/14/2016 Comp Metabolic Nzu132 BILI T 0.4 mg/dL 09/14/2016 Comp Metabolic Lxb548 ALBUMIN 4.0 g/dL 09/14/2016 Comp Metabolic Gmx797 TPRO 7.3 g/dL 09/14/2016 Comp Metabolic Yov147 GLOB 3.3 g/dL 09/14/2016 Comp Metabolic Aqf298 A/G Ratio 1.2 Ratio 09/14/2016 Comp Metabolic Iji597 Osmo 284 mOsmo 09/14/2016 Cbc With Differential Ord2 WBC 10.58 K/ul 09/14/2016 Cbc With Differential Ord2 RBC 4.75 M/ul 09/14/2016 Cbc With Differential Ord2 HGB 13.4 g/dl 09/14/2016 Cbc With Differential Ord2 HCT 41.3 % 09/14/2016 Cbc With Differential Ord2 Neut% 69.6 % 09/14/2016 Cbc With Differential Ord2 MCV 86.9 fl 09/14/2016 Cbc With Differential Ord2 Lymph% 19.8 % 09/14/2016 Cbc With Differential Ord2 MCH 28.2 pg 09/14/2016 Cbc With Differential Ord2 Sierra% 6.2 % 09/14/2016 Cbc With Differential Ord2 Eos% 1.8 % 09/14/2016 Cbc With Differential Ord2 MCHC 32.4 pg 09/14/2016 Cbc With Differential Ord2 Baso% 2.6 % 09/14/2016 Cbc With Differential Ord2 PLT 297 K/ul 09/14/2016 Cbc With Differential Ord2 Neut ABS# 7.37 K/ul 09/14/2016 Cbc With Differential Ord2 RDW 16.8 % 09/14/2016 Cbc With Differential Ord2 Lymph ABS# 2.09 K/ul 09/14/2016 Cbc With Differential Ord2 [place] ABS# 0.7 K/ul 09/14/2016 Cbc With Differential Ord2 Eos ABS# 0.2 K/ul 09/14/2016 Cbc With Differential Ord2 Baso ABS# 0.3 K/ul 09/14/2016 %Hba1C Riw584 % HbA1c 38667-4 10.7 % 09/14/2016 %Hba1C Yxy698 Gluc Ave 260 mg/dL 09/14/2016 Manual Differential Ord52 D-Neutr 62 % 09/14/2016 Manual Differential Ord52 D-[place] 1 % 09/14/2016 Manual Differential Ord52 D-Lymph 34 % 09/14/2016 Manual Differential Ord52 D-Eos 2 % 09/14/2016 Manual Differential Ord52 D-[place] 1 % 09/14/2016 Comp Metabolic Hwq896 NA 134 mEq/L 08/10/2016 Comp Metabolic Bed565 K 5.0 mEq/L 08/10/2016 Comp Metabolic Sey210 CL 91 mEq/L 08/10/2016 Comp Metabolic Kqk163 CO2 29.0 mEq/L 08/10/2016 Comp Metabolic Bqf795 ANION GAP 19 08/10/2016 Comp Metabolic Inc423 GLUCOSE 291 mg/dL 08/10/2016 Comp Metabolic Njf708 Creat 0.9 mg/dL 08/10/2016 Comp Metabolic Oly155 eGFR 68 ml/min/1.73m2 08/10/2016 Comp Metabolic Dyq423 BUN 20 mg/dL 08/10/2016 Comp Metabolic Wgf182 B/C Ratio 22.7 Ratio 08/10/2016 Comp Metabolic Xrd204 CALCIUM 9.7 mg/dL 08/10/2016 Comp Metabolic Keb044 ALK PHOS 144 U/L 08/10/2016 Comp Metabolic Tyr122 AST(SGOT) 62 U/L 08/10/2016 Comp Metabolic Toh624 ALT(SGPT) 37 U/L 08/10/2016 Comp Metabolic Rxe098 BILI T 0.3 mg/dL 08/10/2016 Comp Metabolic Scn822 ALBUMIN 4.3 g/dL 08/10/2016 Comp Metabolic Xqk497 TPRO 7.3 g/dL 08/10/2016 Comp Metabolic Xtt768 GLOB 3.0 g/dL 08/10/2016 Comp Metabolic Mer462 A/G Ratio 1.5 Ratio 08/10/2016 Comp Metabolic Uww375 Osmo 282 mOsmo 08/10/2016 Free T4 Uzz602 FREE T4 0.89 ng/dL 08/09/2016 Tsh Ord6 [...] 27.1 pg 08/09/2016 Cbc With Differential Ord2 Sierra% 5.4 % 08/09/2016 Cbc With Differential Ord2 [...] 2.46 K/ul 08/09/2016 Cbc With Differential Ord2 [place] ABS# 0.8 K/ul 08/09/2016 Cbc With Differential [...] 26.3 % 04/20/2016 Cbc With Differential Ord2 Sierra% 6.3 % 04/20/2016 Cbc With Differential Ord2 MCH 27.3 pg 04/20/2016 Cbc With Differential Ord2 MCHC 31.3 pg 04/20/2016 Cbc With Differential Ord2 Eos% 2.0 % 04/20/2016 Cbc With Differential Ord2 PLT 365 K/ul 04/20/2016 Cbc With Differential Ord2 Baso% 0.2 % 04/20/2016 Cbc With Differential Ord2 RDW 15.2 % 04/20/2016 Cbc With Differential Ord2 Neut ABS# 6.52 K/ul 04/20/2016 Cbc With Differential Ord2 Lymph ABS# 2.63 K/ul 04/20/2016 Cbc With Differential Ord2 [place] ABS# 0.6 K/ul 04/20/2016 Cbc With Differential Ord2 Eos ABS# 0.2 K/ul 04/20/2016 Cbc With Differential Ord2 Baso ABS# 0.0 K/ul 04/20/2016 Comp Metabolic Cob827 NA 133 mEq/L 04/11/2016 Comp Metabolic Aor302 K 4.1 mEq/L 04/11/2016 Comp Metabolic Fhs859 CL 92 mEq/L 04/11/2016 Comp Metabolic Gdg642 CO2 30.0 mEq/L 04/11/2016 Comp Metabolic Kty022 ANION GAP 15 04/11/2016 Comp Metabolic Fqi560 GLUCOSE 414 mg/dL 04/11/2016 Comp Metabolic Jcs183 Creat 0.9 mg/dL 04/11/2016 Comp Metabolic Ndm781 eGFR 65 ml/min/1.73m2 04/11/2016 Comp Metabolic Tgg279 BUN 22 mg/dL 04/11/2016 Comp Metabolic Nto027 B/C Ratio 23.9 Ratio 04/11/2016 Comp Metabolic Tuc580 CALCIUM 9.2 mg/dL 04/11/2016 Comp Metabolic Sve392 ALK PHOS 145 U/L 04/11/2016 Comp Metabolic Vtr523 AST(SGOT) 22 U/L 04/11/2016 Comp Metabolic Gdq690 ALT(SGPT) 21 U/L 04/11/2016 Comp Metabolic Mjm073 BILI T 0.3 mg/dL 04/11/2016 Comp Metabolic Rmr989 ALBUMIN 3.9 g/dL 04/11/2016 Comp Metabolic Gcy978 TPRO 6.8 g/dL 04/11/2016 Comp Metabolic Qap526 GLOB 3.0 g/dL 04/11/2016 Comp Metabolic Dsc513 A/G Ratio 1.3 Ratio 04/11/2016 Comp Metabolic Tip743 Osmo 287 mOsmo 04/11/2016 Cbc With Differential Ord2 WBC 9.53 K/ul 04/11/2016 Cbc With Differential Ord2 RBC 4.42 M/ul 04/11/2016 Cbc With Differential Ord2 HGB 12.2 g/dl 04/11/2016 Cbc With Differential Ord2 HCT 39.3 % 04/11/2016 Cbc With Differential Ord2 Neut% 68.8 % 04/11/2016 Cbc With Differential Ord2 MCV 88.9 fl 04/11/2016 Cbc With Differential Ord2 Lymph% 21.9 % 04/11/2016 Cbc With Differential Ord2 MCH 27.6 pg 04/11/2016 Cbc With Differential Ord2 Sierra% 6.9 % 04/11/2016 Cbc With Differential Ord2 MCHC 31.0 pg 04/11/2016 Cbc With Differential Ord2 Eos% 2.1 % 04/11/2016 Cbc With Differential Ord2 Baso% 0.3 % 04/11/2016 Cbc With Differential Ord2 PLT 307 K/ul 04/11/2016 Cbc With Differential Ord2 Neut ABS# 6.55 K/ul 04/11/2016 Cbc With Differential Ord2 RDW 15.1 % 04/11/2016 Cbc With Differential Ord2 Lymph ABS# 2.09 K/ul 04/11/2016 Cbc With Differential Ord2 [place] ABS# 0.7 K/ul 04/11/2016 Cbc With Differential Ord2 Eos ABS# 0.2 K/ul 04/11/2016 Cbc With Differential Ord2 Baso ABS# 0.0 K/ul 04/11/2016 Comp Metabolic Yfo728 NA 136 mEq/L 02/26/2016 Comp Metabolic Qqj129 K 3.9 mEq/L 02/26/2016 Comp Metabolic Bjy873 CL 95 mEq/L 02/26/2016 Comp Metabolic Zgc158 CO2 29.0 mEq/L 02/26/2016 Comp Metabolic Xyc174 ANION GAP 16 02/26/2016 Comp Metabolic Ipx389 GLUCOSE 277 mg/dL 02/26/2016 Comp Metabolic Ksr724 Creat 0.7 mg/dL 02/26/2016 Comp Metabolic Uxv092 eGFR 88 ml/min/1.73m2 02/26/2016 Comp Metabolic Png153 BUN 11 mg/dL 02/26/2016 Comp Metabolic Vjv432 B/C Ratio 15.5 Ratio 02/26/2016 Comp Metabolic Ieh223 CALCIUM 8.8 mg/dL 02/26/2016 Comp Metabolic Grf142 ALK PHOS 119 U/L 02/26/2016 Comp Metabolic Bht795 AST(SGOT) 25 U/L 02/26/2016 Comp Metabolic Zda450 ALT(SGPT) 20 U/L 02/26/2016 Comp Metabolic Eny869 BILI T 0.3 mg/dL 02/26/2016 Comp Metabolic Pef125 ALBUMIN 3.8 g/dL 02/26/2016 Comp Metabolic Rxp751 TPRO 6.6 g/dL 02/26/2016 Comp Metabolic Aow427 GLOB 2.8 g/dL 02/26/2016 Comp Metabolic Zpm991 A/G Ratio 1.3 Ratio 02/26/2016 Comp Metabolic Jtu788 Osmo 281 mOsmo 02/26/2016 Cbc With Differential [...] 29.6 pg 02/26/2016 Cbc With Differential Ord2 Sierra% 6.4 % 02/26/2016 Cbc With Differential Ord2 MCHC 31.3 pg 02/26/2016 Cbc With Differential Ord2 Eos% 1.4 % 02/26/2016 Cbc With Differential Ord2 Baso% 0.4 % 02/26/2016 Cbc With Differential Ord2 PLT 371 K/ul 02/26/2016 Cbc With Differential Ord2 Neut ABS# 8.63 K/ul 02/26/2016 Cbc With Differential Ord2 RDW 15.1 % 02/26/2016 Cbc With Differential Ord2 Lymph ABS# 2.78 K/ul 02/26/2016 Cbc With Differential Ord2 [place] ABS# 0.8 K/ul 02/26/2016 Cbc With Differential Ord2 Eos ABS# 0.2 K/ul 02/26/2016 Cbc With Differential Ord2 Baso ABS# 0.1 K/ul 02/26/2016 %Hba1C Ucb989 % HbA1c 37921-4 9.6 % 02/26/2016 %Hba1C Lgh797 Gluc Ave 229 mg/dL 02/26/2016 Comp Metabolic Ajy594 NA 138 mEq/L 11/10/2015 Comp Metabolic Mmy958 K 4.5 mEq/L 11/10/2015 Comp Metabolic Fzj032 CL 99 mEq/L 11/10/2015 Comp Metabolic Pfi518 CO2 34.0 mEq/L 11/10/2015 Comp Metabolic Rdw366 ANION GAP 10 11/10/2015 Comp Metabolic Atv302 GLUCOSE 167 mg/dL 11/10/2015 Comp Metabolic Zsu832 Creat 0.8 mg/dL 11/10/2015 Comp Metabolic Vrt232 eGFR 78 ml/min/1.73m2 11/10/2015 Comp Metabolic Trd853 BUN 22 mg/dL 11/10/2015 Comp Metabolic Gst137 B/C Ratio 27.8 Ratio 11/10/2015 Comp Metabolic Brs719 CALCIUM 8.5 mg/dL 11/10/2015 Comp Metabolic Tus315 ALK PHOS 130 U/L 11/10/2015 Comp Metabolic Csd636 AST(SGOT) 56 U/L 11/10/2015 Comp Metabolic Rng899 ALT(SGPT) 51 U/L 11/10/2015 Comp Metabolic Hvk720 BILI T 0.5 mg/dL 11/10/2015 Comp Metabolic Xim017 ALBUMIN 3.5 g/dL 11/10/2015 Comp Metabolic Zjc538 TPRO 5.8 g/dL 11/10/2015 Comp Metabolic Svh572 GLOB 2.3 g/dL 11/10/2015 Comp Metabolic Wxj315 A/G Ratio 1.5 Ratio 11/10/2015 Comp Metabolic Bxe922 Osmo 283 mOsmo 11/10/2015 Cbc With Differential [...] 93.1 fl 11/10/2015 Cbc With Differential Ord2 Sierra% 7.7 % 11/10/2015 Cbc With Differential Ord2 MCH 28.0 pg 11/10/2015 Cbc With Differential Ord2 MCHC 30.1 pg 11/10/2015 Cbc With Differential Ord2 Eos% 1.1 % 11/10/2015 Cbc With Differential Ord2 PLT 274 K/ul 11/10/2015 Cbc With Differential Ord2 Baso% 0.3 % 11/10/2015 Cbc With Differential Ord2 RDW 16.8 % 11/10/2015 Cbc With Differential Ord2 Neut ABS# 8.21 K/ul 11/10/2015 Cbc With Differential Ord2 Lymph ABS# 1.92 K/ul 11/10/2015 Cbc With Differential Ord2 [place] ABS# 0.9 K/ul 11/10/2015 Cbc With Differential [...] 28.6 pg 08/11/2015 Cbc With Differential Ord2 Sierra% 8.1 % 08/11/2015 Cbc With Differential Ord2 MCHC 30.0 pg 08/11/2015 Cbc With Differential Ord2 Eos% 1.0 % 08/11/2015 Cbc With Differential Ord2 PLT 442 K/ul 08/11/2015 Cbc With Differential Ord2 Baso% 0.3 % 08/11/2015 Cbc With Differential Ord2 RDW 15.5 % 08/11/2015 Cbc With Differential Ord2 Neut ABS# 7.54 K/ul 08/11/2015 Cbc With Differential Ord2 Lymph ABS# 2.93 K/ul 08/11/2015 Cbc With Differential Ord2 [place] ABS# 0.9 K/ul 08/11/2015 Cbc With Differential Ord2 Eos ABS# 0.1 K/ul 08/11/2015 Cbc With Differential Ord2 Baso ABS# 0.0 K/ul 08/11/2015 Cbc With Differential Ord2 New Analyzer Notice Please note new ref ranges starting 06-03-2015 due to implemntation of new five part differential hematolgy analyzer. 08/11/2015 Comp Metabolic Nyr891 NA 142 mEq/L 08/11/2015 Comp Metabolic Nra860 K 3.6 mEq/L 08/11/2015 Comp Metabolic Yoq221 CL 98 mEq/L 08/11/2015 Comp Metabolic Bor445 CO2 33.0 mEq/L 08/11/2015 Comp Metabolic Zze088 ANION GAP 15 08/11/2015 Comp Metabolic Vos399 GLUCOSE 100 mg/dL 08/11/2015 Comp Metabolic Uij988 Creat 0.9 mg/dL 08/11/2015 Comp Metabolic Yoo418 eGFR 65 ml/min/1.73m2 08/11/2015 Comp Metabolic Lkb090 BUN 15 mg/dL 08/11/2015 Comp Metabolic Xhc508 B/C Ratio 16.3 Ratio 08/11/2015 Comp Metabolic Gui644 CALCIUM 8.8 mg/dL 08/11/2015 Comp Metabolic Ryv281 ALK PHOS 171 U/L 08/11/2015 Comp Metabolic Krm230 AST(SGOT) 76 U/L 08/11/2015 Comp Metabolic Pdy668 ALT(SGPT) 64 U/L 08/11/2015 Comp Metabolic Cfk466 BILI T 0.4 mg/dL 08/11/2015 Comp Metabolic Xna409 ALBUMIN 4.2 g/dL 08/11/2015 Comp Metabolic Ret219 TPRO 6.7 g/dL 08/11/2015 Comp Metabolic Jtq966 GLOB 2.6 g/dL 08/11/2015 Comp Metabolic Blq009 A/G Ratio 1.6 Ratio 08/11/2015 Comp Metabolic Hnm316 Osmo 284 mOsmo 08/11/2015 %Hba1C Oya277 % HbA1c 68463-4 6.7 % 08/11/2015 %Hba1C Tud372 Gluc Ave 146 mg/dL 08/11/2015 Free T4 Lqa748 FREE T4 1.07 ng/dL 08/11/2015 Culture Urine [id number] URINE CULTURE SEE NOTES 07/23/2015 Culture Urine [id number] Continued Results 07/23/2015 Urine Culture Ucult Complete Growth of aerobe sent to ref lab 07/21/2015 Free T4 Beb548 FREE T4 0.76 ng/dL 04/15/2015 Tsh Ord6 hTSH II 1.99 uIU/mL 04/15/2015 %Hba1C Olz125 % HbA1c 24152-9 6.7 % 04/14/2015 %Hba1C Zio111 Gluc Ave 146 mg/dL 04/14/2015 Comp Metabolic Zxh035 NA 140 mEq/L 04/14/2015 Comp Metabolic Jnc855 K 4.4 mEq/L 04/14/2015 Comp Metabolic Elk079 CL 99 mEq/L 04/14/2015 Comp Metabolic Fxm529 CO2 29.0 mEq/L 04/14/2015 Comp Metabolic Egm533 ANION GAP 16 04/14/2015 Comp Metabolic Sil131 GLUCOSE 100 mg/dL 04/14/2015 Comp Metabolic Axu674 Creat 0.7 mg/dL 04/14/2015 Comp Metabolic Acs960 eGFR 91 ml/min/1.73m2 04/14/2015 Comp Metabolic Ceb772 BUN 13 mg/dL 04/14/2015 Comp Metabolic Jnz703 B/C Ratio 18.8 Ratio 04/14/2015 Comp Metabolic Qwg136 CALCIUM 9.1 mg/dL 04/14/2015 Comp Metabolic Gzf101 ALK PHOS 138 U/L 04/14/2015 Comp Metabolic Jhs198 AST(SGOT) 22 U/L 04/14/2015 Comp Metabolic Ysw467 ALT(SGPT) 22 U/L 04/14/2015 Comp Metabolic Evh003 BILI T 0.3 mg/dL 04/14/2015 Comp Metabolic Ych806 ALBUMIN 4.0 g/dL 04/14/2015 Comp Metabolic Ufp576 TPRO 6.5 g/dL 04/14/2015 Comp Metabolic Okq965 GLOB 2.5 g/dL 04/14/2015 Comp Metabolic Nkp775 A/G Ratio 1.6 Ratio 04/14/2015 Comp Metabolic Gcl043 Osmo 280 mOsmo 04/14/2015 Cbc With Differential [...] Ord2 RDW 16.5 % 04/14/2015 CHEM 14 4113691 AST 15 U/L 09/11/2013 CHEM 14 5707465 ALT 25 IU/L 09/11/2013 CHEM 14 1784569 BUN 29 MG/DL 09/11/2013 CHEM 14 0793944 ALBUMIN 3.8 GM/DL 09/11/2013 CHEM 14 9092775 CHLORIDE 99 MMOL/L 09/11/2013 CHEM 14 4786608 BILI TOT 0.2 MG/DL 09/11/2013 CHEM 14 2364783 ALK PHOS 118 U/L 09/11/2013 CHEM 14 2222769 SODIUM 136 MMOL/L 09/11/2013 CHEM 14 9606342 CREATININE 1.26 MG/DL 09/11/2013 CHEM 14 7142276 CALCIUM 9.0 MG/DL 09/11/2013 CHEM 14 9199886 POTASSIUM 5.0 MMOL/L 09/11/2013 CHEM 14 0015310 PROT TOT 6.2 GM/DL 09/11/2013 CHEM 14 6449679 GLUCOSE 254 MG/DL 09/11/2013 CHEM 14 2189459 BICARB 29 MMOL/L 09/11/2013 CHEM 14 5854012 ANION GAP 8 MEQ/L 09/11/2013 GFR CALC 5295643 GFR AA 52.0L ML/MIN 09/11/2013 GFR CALC GFR NON-AA 43.0L ML/MIN 09/11/2013 FREE T4 [id number] FREE T4 1.35 NG/DL 08/02/2013 CBC 3885889 WBC 7.5 10e9/L 08/01/2013 CBC 3669169 RBC 3.88 10e12/L 08/01/2013 CBC 8053566 HGB 12.1 g/dL 08/01/2013 CBC 4993922 HCT DET 37.6 % 08/01/2013 CBC 8996906 MCV 96.9 fL 08/01/2013 CBC 4670547 MCH 31.2 pg 08/01/2013 CBC 4059481 MCHC 32.2 g/dL 08/01/2013 CBC 2068253 PLT 289 10e9/L 08/01/2013 CBC 8578122 MPV 9.6 fL 08/01/2013 CBC 5976181 JOSEFINA % 56.0 % 08/01/2013 CBC 6071535 LY % 31.6 % 08/01/2013 CBC 6897857 MON % 10.0 % 08/01/2013 CBC 7885003 EOS % 1.7 % 08/01/2013 CBC 2640428 BASO % 0.7 % 08/01/2013 CBC 2995129 RDW 15.5 % 08/01/2013 CBC 3578226 ABS JOSEFINA 4.20 10e9/L 08/01/2013 CBC 1324280 ABS LYMPH 2.37 10e9/L 08/01/2013 CBC 1530049 ABS MONO 0.75 10e9/L 08/01/2013 CBC 0193336 ABS EOS 0.13 10e9/L 08/01/2013 CBC 6397564 ABS BASO 0.05 10e9/L 08/01/2013 CBC 1377313 RDW-SD 53.5 fL 08/01/2013 TSH 7020680 TSH 6.497 uIU/ML 08/01/2013 CHEM 14 5317231 AST 53 U/L 08/01/2013 CHEM 14 1110031 ALT 36 IU/L 08/01/2013 CHEM 14 6436905 BUN 16 MG/DL 08/01/2013 CHEM 14 3180466 ALBUMIN 4.2 GM/DL 08/01/2013 CHEM 14 4099969 CHLORIDE 103 MMOL/L 08/01/2013 CHEM 14 2389036 BILI TOT 0.4 MG/DL 08/01/2013 CHEM 14 1301701 ALK PHOS 113 U/L 08/01/2013 CHEM 14 9561523 SODIUM 139 MMOL/L 08/01/2013 CHEM 14 2535375 CREATININE 0.83 MG/DL 08/01/2013 CHEM 14 5138526 CALCIUM 9.5 MG/DL 08/01/2013 CHEM 14 4279591 POTASSIUM 4.2 MMOL/L 08/01/2013 CHEM 14 5280787 PROT TOT 6.4 GM/DL 08/01/2013 CHEM 14 5487515 GLUCOSE 135 MG/DL 08/01/2013 CHEM 14 7256300 BICARB 26 MMOL/L 08/01/2013 CHEM 14 8469535 ANION GAP 10 MEQ/L 08/01/2013 A1C HPLC 4745218 A1C HPLC 66590-9 8.1 % 08/01/2013 GFR CALC 9535180 GFR AA >60 ML/MIN 08/01/2013 GFR CALC 5033458 GFR NON-AA >60 ML/MIN 08/01/2013 CBC 6914741 WBC 10.4 10e9/L 03/21/2013 CBC 6561390 RBC 4.27 10e12/L 03/21/2013 CBC 3726813 HGB 13.1 g/dL 03/21/2013 CBC 0445086 HCT DET 41.2 % 03/21/2013 CBC 3503591 MCV 96.5 fL 03/21/2013 CBC 7494510 MCH 30.7 pg 03/21/2013 CBC 9196706 MCHC 31.8 g/dL 03/21/2013 CBC 5234085 PLT 398 10e9/L 03/21/2013 CBC 5278898 MPV 10.9 fL 03/21/2013 CBC 9770297 JOSEFINA % 65.4 % 03/21/2013 CBC 5936284 LY % 25.6 % 03/21/2013 CBC 2085232 MON % 6.7 % 03/21/2013 CBC 3087982 EOS % 1.9 % 03/21/2013 CBC 7583002 BASO % 0.4 % 03/21/2013 CBC 7605620 RDW 14.2 % 03/21/2013 CBC 1597794 ABS JOSEFINA 6.80 10e9/L 03/21/2013 CBC 4512153 ABS LYMPH 2.66 10e9/L 03/21/2013 CBC 3029662 ABS MONO 0.70 10e9/L 03/21/2013 CBC 6371548 ABS EOS 0.20 10e9/L 03/21/2013 CBC 6012909 ABS BASO 0.04 10e9/L 03/21/2013 CBC 4451145 RDW-SD 48.7 fL 03/21/2013 GFR CALC 9112213 GFR AA 57.0L ML/MIN 03/21/2013 GFR CALC 5143741 GFR NON-AA 47.0L ML/MIN 03/21/2013 CHEM 14 4112913 AST 22 U/L 03/21/2013 CHEM 14 5679818 ALT 22 IU/L 03/21/2013 CHEM 14 7995013 BUN 29 MG/DL 03/21/2013 CHEM 14 9284310 ALBUMIN 4.1 GM/DL 03/21/2013 CHEM 14 2350956 CHLORIDE 99 MMOL/L 03/21/2013 CHEM 14 9614968 BILI TOT 0.3 MG/DL 03/21/2013 CHEM 14 3376760 ALK PHOS 123 U/L 03/21/2013 CHEM 14 3501006 SODIUM 137 MMOL/L 03/21/2013 CHEM 14 1571097 CREATININE 1.16 MG/DL 03/21/2013 CHEM 14 3233575 CALCIUM 9.1 MG/DL 03/21/2013 CHEM 14 7433372 POTASSIUM 4.1 MMOL/L 03/21/2013 CHEM 14 1792578 PROT TOT 6.7 GM/DL 03/21/2013 CHEM 14 4773795 GLUCOSE 209 MG/DL 03/21/2013 CHEM 14 9958656 BICARB 26 MMOL/L 03/21/2013 CHEM 14 6855929 ANION GAP 12 MEQ/L 03/21/2013 A1C HPLC 5898390 A1C HPLC 99383-6 6.6 % 03/21/2013 GFR CALC 6650714 GFR AA >60 ML/MIN 01/17/2013 GFR CALC 1037345 GFR NON-AA 51.0L ML/MIN 01/17/2013 CHEM 14 7927981 AST 18 U/L 01/17/2013 CHEM 14 8840223 ALT 32 IU/L 01/17/2013 CHEM 14 4772065 BUN 22 MG/DL 01/17/2013 CHEM 14 9782160 ALBUMIN 4.1 GM/DL 01/17/2013 CHEM 14 3524430 CHLORIDE 99 MMOL/L 01/17/2013 CHEM 14 7540795 BILI TOT 0.3 MG/DL 01/17/2013 CHEM 14 5730913 ALK PHOS 110 U/L 01/17/2013 CHEM 14 8114303 SODIUM 138 MMOL/L 01/17/2013 CHEM 14 1599100 CREATININE 1.09 MG/DL 01/17/2013 CHEM 14 8281466 CALCIUM 8.8 MG/DL 01/17/2013 CHEM 14 4428807 POTASSIUM 3.5 MMOL/L 01/17/2013 CHEM 14 7713039 PROT TOT 6.1 GM/DL 01/17/2013 CHEM 14 9188341 GLUCOSE 163 MG/DL 01/17/2013 CHEM 14 6293505 BICARB 29 MMOL/L 01/17/2013 CHEM 14 0756856 ANION GAP 10 MEQ/L 01/17/2013 CBC 1911912 WBC 8.0 10e9/L 01/17/2013 CBC 3828802 RBC 3.85 10e12/L 01/17/2013 CBC 1025316 HGB 12.6 g/dL 01/17/2013 CBC 5429773 HCT DET 38.0 % 01/17/2013 CBC 9727437 MCV 98.7 fL 01/17/2013 CBC 1551471 MCH 32.7 pg 01/17/2013 CBC 1656849 MCHC 33.2 g/dL 01/17/2013 CBC 1110830 PLT 325 10e9/L 01/17/2013 CBC 5163242 MPV 10.4 fL 01/17/2013 CBC 2379514 JOSEFINA % 64.6 % 01/17/2013 CBC 7487421 LY % 27.0 % 01/17/2013 CBC 2617502 MON % 6.8 % 01/17/2013 CBC 2590450 EOS % 1.4 % 01/17/2013 CBC 6063185 BASO % 0.2 % 01/17/2013 CBC 8483491 RDW 15.5 % 01/17/2013 CBC 7696526 ABS JOSEFINA 5.17 10e9/L 01/17/2013 CBC 0704042 ABS LYMPH 2.16 10e9/L 01/17/2013 CBC 5543216 ABS MONO 0.54 10e9/L 01/17/2013 CBC 5350920 ABS EOS 0.11 10e9/L 01/17/2013 CBC 4655367 ABS BASO 0.02 10e9/L 01/17/2013 CBC 1434056 RDW-SD 54.3 fL 01/17/2013 TSH 5307289 TSH 3.683 uIU/ML 12/31/2012 FREE T4 9763178 FREE T4 1.34 NG/DL 12/31/2012 A1C HPLC 9019997 A1C HPLC 71721-4 6.6 % 12/21/2012 CHEM 14 1635012 AST 16 U/L 12/20/2012 CHEM 14 6141083 ALT 36 IU/L 12/20/2012 CHEM 14 4618591 BUN 26 MG/DL 12/20/2012 CHEM 14 8413588 ALBUMIN 4.2 GM/DL 12/20/2012 CHEM 14 9026735 CHLORIDE 103 MMOL/L 12/20/2012 CHEM 14 1166632 BILI TOT 0.4 MG/DL 12/20/2012 CHEM 14 1183612 ALK PHOS 107 U/L 12/20/2012 CHEM 14 2818800 SODIUM 141 MMOL/L 12/20/2012 CHEM 14 6935146 CREATININE 0.73 MG/DL 12/20/2012 CHEM 14 8677867 CALCIUM 9.2 MG/DL 12/20/2012 CHEM 14 4890390 POTASSIUM 4.3 MMOL/L 12/20/2012 CHEM 14 0192982 PROT TOT 6.2 GM/DL 12/20/2012 CHEM 14 8634691 GLUCOSE 135 MG/DL 12/20/2012 CHEM 14 5218628 BICARB 32 MMOL/L 12/20/2012 CHEM 14 7523540 ANION GAP 6 MEQ/L 12/20/2012 GFR CALC 8534527 GFR AA >60 ML/MIN 12/20/2012 GFR CALC 0490596 GFR NON-AA >60 ML/MIN 12/20/2012 CBC 3011727 WBC 8.4 10e9/L 12/20/2012 CBC 5401963 RBC 4.30 10e12/L 12/20/2012 CBC 6290002 HGB 13.9 g/dL 12/20/2012 CBC 3855901 HCT DET 41.8 % 12/20/2012 CBC 3471235 MCV 97.2 fL 12/20/2012 CBC 2833937 MCH 32.3 pg 12/20/2012 CBC 2898350 MCHC 33.3 g/dL 12/20/2012 CBC 5995806 PLT 358 10e9/L 12/20/2012 CBC 2333740 MPV 10.2 fL 12/20/2012 CBC 5179706 JOSEFINA % 63.3 % 12/20/2012 CBC 3292827 LY % 28.9 % 12/20/2012 CBC 8936442 MON % 6.3 % 12/20/2012 CBC 1420398 EOS % 1.1 % 12/20/2012 CBC 7713500 BASO % 0.4 % 12/20/2012 CBC 5025409 RDW 15.3 % 12/20/2012 CBC 7728884 ABS JOSEFINA 5.32 10e9/L 12/20/2012 CBC 1571187 ABS LYMPH 2.43 10e9/L 12/20/2012 CBC 8202380 ABS MONO 0.53 10e9/L 12/20/2012 CBC 2204937 ABS EOS 0.09 10e9/L 12/20/2012 CBC 1820438 ABS BASO 0.03 10e9/L 12/20/2012 CBC 1450812 RDW-SD 51.9 fL 12/20/2012 GFR CALC 0575887 GFR AA >60 ML/MIN 02/01/2012 GFR CALC 4853889 GFR NON-AA >60 ML/MIN 02/01/2012 CBC 2803887 WBC 10.8 10e9/L 02/01/2012 CBC [id number] RBC 3.86 10e12/L 02/01/2012 CBC 6565563 HGB 11.8 g/dL 02/01/2012 CBC 3113309 HCT DET 36.3 % 02/01/2012 CBC [id number] MCV 94.0 fL 02/01/2012 CBC 8014260 MCH 30.6 pg 02/01/2012 CBC 4106451 MCHC 32.5 g/dL 02/01/2012 CBC [id number] PLT 321 10e9/L 02/01/2012 CBC [id number] MPV 10.3 fL 02/01/2012 CBC [id number] JOSEFINA % 75.9 % 02/01/2012 CBC 8764118 LY % 16.1 % 02/01/2012 CBC [id number] MON % 6.8 % 02/01/2012 CBC 8086532 EOS % 1.0 % 02/01/2012 CBC 6013164 BASO % 0.2 % 02/01/2012 CBC 3380540 RDW 14.2 % 02/01/2012 CBC 2487244 ABS JOSEFINA 8.20 10e9/L 02/01/2012 CBC 2323510 ABS LYMPH 1.74 10e9/L 02/01/2012 CBC 9963668 ABS MONO 0.73 10e9/L 02/01/2012 CBC 5843564 ABS EOS 0.11 10e9/L 02/01/2012 CBC 0953786 ABS BASO 0.02 10e9/L 02/01/2012 CBC 0166595 RDW-SD 47.2 fL 02/01/2012 BRAIN PEP 4248146 BRAIN PEP FOOTNOTE pg/mL 02/01/2012 CHEM 14 4997565 AST 26 U/L 02/01/2012 CHEM 14 0271101 ALT 36 IU/L 02/01/2012 CHEM 14 1798545 BUN 29 MG/DL 02/01/2012 CHEM 14 8997832 ALBUMIN 3.7 GM/DL 02/01/2012 CHEM 14 5688318 CHLORIDE 105 MMOL/L 02/01/2012 CHEM 14 6395193 BILI TOT 0.2 MG/DL 02/01/2012 CHEM 14 4005166 ALK PHOS 89 U/L 02/01/2012 CHEM 14 2067720 SODIUM 141 MMOL/L 02/01/2012 CHEM 14 8204698 CREATININE 0.76 MG/DL 02/01/2012 CHEM 14 6340519 CALCIUM 9.0 MG/DL 02/01/2012 CHEM 14 7779998 POTASSIUM 4.8 MMOL/L 02/01/2012 CHEM 14 7478795 PROT TOT 5.5 GM/DL 02/01/2012 CHEM 14 8260673 GLUCOSE 83 MG/DL 02/01/2012 CHEM 14 5440620 BICARB 31 MMOL/L 02/01/2012 CHEM 14 5337447 ANION GAP 5 MEQ/L 02/01/2012 GFR CALC 5937937 GFR AA >60 ML/MIN 11/30/2011 GFR CALC 0251479 GFR NON-AA >60 ML/MIN 11/30/2011 CHEM 14 5262701 AST 14 U/L 11/30/2011 CHEM 14 7725279 ALT 17 IU/L 11/30/2011 CHEM 14 5216301 BUN 12 MG/DL 11/30/2011 CHEM 14 3514281 ALBUMIN 4.3 GM/DL 11/30/2011 CHEM 14 7970013 CHLORIDE 104 MMOL/L 11/30/2011 CHEM 14 0073190 BILI TOT 0.3 MG/DL 11/30/2011 CHEM 14 9626212 ALK PHOS 83 U/L 11/30/2011 CHEM 14 9925718 SODIUM 143 MMOL/L 11/30/2011 CHEM 14 9167428 CREATININE 0.71 MG/DL 11/30/2011 CHEM 14 4846678 CALCIUM 9.7 MG/DL 11/30/2011 CHEM 14 0657835 POTASSIUM 4.4 MMOL/L 11/30/2011 CHEM 14 9573215 PROT TOT 6.3 GM/DL 11/30/2011 CHEM 14 0303240 GLUCOSE 107 MG/DL 11/30/2011 CHEM 14 3854895 BICARB 27 MMOL/L 11/30/2011 CHEM 14 3200511 ANION GAP 12 MEQ/L 11/30/2011 CBC 4011631 WBC 8.7 10e9/L 11/30/2011 CBC 1000075 RBC 4.40 10e12/L 11/30/2011 CBC 2044243 HGB 13.6 g/dL 11/30/2011 CBC 4693401 HCT DET 41.0 % 11/30/2011 CBC 7955379 MCV 93.2 fL 11/30/2011 CBC 5887297 MCH 30.9 pg 11/30/2011 CBC [id number] MCHC 33.2 g/dL 11/30/2011 CBC 8324147 PLT 328 10e9/L 11/30/2011 CBC 5754062 MPV 10.7 fL 11/30/2011 CBC 1515006 JOSEFINA % 68.4 % 11/30/2011 CBC 1951239 LY % 22.4 % 11/30/2011 CBC 8418113 MON % 7.9 % 11/30/2011 CBC 1133858 EOS % 1.1 % 11/30/2011 CBC 5304539 BASO % 0.2 % 11/30/2011 CBC 1905141 RDW 13.5 % 11/30/2011 CBC 8429163 ABS JOSEFINA 5.95 10e9/L 11/30/2011 CBC 7923847 ABS LYMPH 1.95 10e9/L 11/30/2011 CBC 0075682 ABS MONO 0.69 10e9/L 11/30/2011 CBC 5152934 ABS EOS 0.10 10e9/L 11/30/2011 CBC 5449543 ABS BASO 0.02 10e9/L 11/30/2011 CBC 9416115 RDW-SD 45.0 fL 11/30/2011 URINALYSIS NONAUTO W/O SCOPE 29608 Specific [place] 1.030 DateTime(Free Text in Aprima) URINALYSIS NONAUTO W/O SCOPE 96279 PH 5 DateTime(Free Text in Apr[employer]) URINALYSIS NONAUTO W/O SCOPE 66624 GLUCOSE neg DateTime( Free Text in Apr[employer]) URINALYSIS NONAUTO W/O SCOPE 95986 Protein neg DateTime( Free Text in Apr[employer]) URINALYSIS NONAUTO W/O SCOPE 48984 Blood neg DateTime(Free Text in Apr[employer]) URINALYSIS NONAUTO W/O SCOPE 10518 Bilirubin neg DateTime(Free Text in Apr[employer]) URINALYSIS NONAUTO W/O SCOPE 71366 Ketones neg DateTime( Free Text in [employer]) URINALYSIS NONAUTO W/O SCOPE 93260 Urobilinogen neg DateTime(Free Text in Apr[employer]) URINALYSIS NONAUTO W/O SCOPE 08258 Nitrite neg DateTime( Free Text in [employer]) URINALYSIS NONAUTO W/O SCOPE 47944 Leukocytes neg DateTime(Free Text in Aprima) UA 14240 Specific [place] 1.010 DateTime(Free Text in Aprima ) UA 55974 PH 5 DateTime(Free Text in Aprima) UA 93998 GLUCOSE N DateTime(Free Text in Aprima) UA 08502 Protein N DateTime(Free Text in Aprima) UA 72140 Blood TRACE DateTime(Free Text in Aprima) UA 03692 Bilirubin N DateTime(Free Text in Aprima) UA 48042 Ketones N DateTime(Free Text in Aprima) UA 89376 Urobilinogen N DateTime(Free Text in Aprima) UA 37592 Nitrite N DateTime(Free Text in Aprima) UA 58017 Leukocytes N DateTime(Free Text in Aprima) URINALYSIS NONAUTO W/O SCOPE 98612 Specific [place] 1.010 DateTime(Free Text in Aprima) URINALYSIS NONAUTO W/O SCOPE 18452 PH 7.5 DateTime(Free Text in Aprima) URINALYSIS NONAUTO W/O SCOPE 73168 GLUCOSE DateTime( Free Text in Aprima) URINALYSIS NONAUTO W/O SCOPE 05507 Protein trace DateTime(Free Text in Aprima) URINALYSIS NONAUTO W/O SCOPE 29975 Blood DateTime(Free Text in Aprima) URINALYSIS NONAUTO W/O SCOPE 37112 Bilirubin DateTime( Free Text in Aprima) URINALYSIS NONAUTO W/O SCOPE 73589 Ketones DateTime( Free Text in Aprima) URINALYSIS NONAUTO W/O SCOPE 68145 Urobilinogen DateTime (Free Text in Aprima) URINALYSIS NONAUTO W/O SCOPE 39934 Nitrite DateTime( Free Text in Aprima) URINALYSIS NONAUTO W/O SCOPE 74009 Leukocytes DateTime( Free Text in Aprima) URINALYSIS NONAUTO W/O SCOPE 69532 Specific [place] 1.010 DateTime(Free Text in Aprima) URINALYSIS NONAUTO W/O SCOPE 86843 PH 6 DateTime(Free Text in Aprima) URINALYSIS NONAUTO W/O SCOPE 77792 GLUCOSE DateTime( Free Text in Aprima) URINALYSIS NONAUTO W/O SCOPE 84636 Protein DateTime( Free Text in Aprima) URINALYSIS NONAUTO W/O SCOPE 83663 Blood DateTime(Free Text in Aprima) URINALYSIS NONAUTO W/O SCOPE 51704 Bilirubin DateTime( Free Text in Aprima) URINALYSIS NONAUTO W/O SCOPE 95520 Ketones DateTime( Free Text in Aprima) URINALYSIS NONAUTO W/O SCOPE 21796 Urobilinogen DateTime (Free Text in Aprima) URINALYSIS NONAUTO W/O SCOPE 08121 Nitrite DateTime( Free Text in Aprima) URINALYSIS NONAUTO W/O SCOPE 34198 Leukocytes DateTime( Free Text in Aprima) UA 44820 Specific [place] 1.020 DateTime(Free Text in Aprima ) UA 05075 PH 6 DateTime(Free Text in Aprima) UA 98189 GLUCOSE neg DateTime(Free Text in Aprima) UA 02232 Protein neg DateTime(Free Text in Aprima) UA 78484 Blood neg DateTime(Free Text in Aprima) UA 47636 Bilirubin neg DateTime(Free Text in Aprima) UA 42158 Ketones neg DateTime(Free Text in Aprima) UA 90462 Urobilinogen neg DateTime(Free Text in Aprima) UA 35874 Nitrite neg DateTime(Free Text in ) UA 93056 Leukocytes neg DateTime(Free Text in ) BMI 32736-9 39.7 DateTime(Free Text in ) Blood Pressure 1 8480-6 DateTime(Free Text in ) Height (cm) DateTime(Free Text in ) Weight (kg) DateTime(Free Text in ) Heart Rate 1 [...] clear 07/26/2016 None Full Exam - General 1995 Ears/Nose/Throat [...] occlusion 03/03/2014 None Full Exam - General 1994 [...] occlusion 01/27/2014 None Full Exam - General 1994 [...] occlusion 11/14/2013 None Full Exam - General 1994 [...] 1994 Ears/Nose/Throat oral cavity/pharynx/larynx Overall: no masses 08/19/2013 [...] 1994 Ears/Nose/Throat oral cavity/pharynx/larynx Overall: no masses 08/01/2013 [...] masses 07/15/2013 None Full Exam - General 1994 Ears/Nose/Throat external ear Overall: normal mastoids 07/15/2013 None Full Exam - General 1995 Ears/Nose/Throat otoscopic exam External auditory canal: a normal exam 07/15/2013 None Full Exam - General 1995 Ears/Nose/Throat otoscopic exam External auditory canal: partial cerumen occlusion 07/15/2013 None Full Exam - General 1995 Ears/Nose/Throat otoscopic exam Tympanic membrane: a normal exam 07/15/2013 None Full Exam - General 1994 [...] visualized 06/10/2013 None Full Exam - General 1994 Ears/Nose/Throat internal nose Overall: bilateral nasal cavities clear 06/10/2013 None Full Exam - General 1994 Ears/Nose/Throat internal nose Turbinates: erythema 06/10/2013 None [...] exam 05/07/2013 None Full Exam - General 1994 Ears/Nose/Throat otoscopic exam External auditory canal: partial cerumen occlusion 05/07/2013 None Full Exam - General 1995 Ears/Nose/Throat otoscopic exam Tympanic membrane: a normal exam 05/07/2013 None Full Exam - General 1995 Ears/Nose/Throat otoscopic exam Tympanic membrane: not visualized 05/07/2013 None Full Exam - General 1995 Ears/Nose/Throat internal nose Overall: bilateral nasal cavities clear 05/07/2013 None Full Exam - General 1995 Ears/Nose/Throat internal nose Turbinates: erythema 05/07/2013 None Full Exam - General 1994 Ears/Nose/Throat internal nose Drainage: clear 05/07/2013 None Full Exam - General 1994 Respiratory respiratory effort/rhythm Overall: no retractions 05/07/2013 None Full Exam - General 1995 Respiratory respiratory effort/rhythm Overall: normal rate 05/07/2013 [...] developed 04/16/2013 None Full Exam - General 1994 Constitutional general appearance Overall: in no acute distress 04/16/2013 None Full Exam - General 1994 Constitutional general appearance Overall: well nourished 04/16/2013 None Full Exam - General 1994 Eyes [...] visualized 04/16/2013 None Full Exam - General 1994 Ears/Nose/Throat internal nose Overall: bilateral nasal cavities clear 04/16/2013 None Full Exam - General 1994 Ears/Nose/Throat internal nose Turbinates: erythema 04/16/2013 None [...] accomodation 03/21/2013 None Full Exam - General 1995 [...] General 1995 Ears/Nose/Throat lips/teeth/gingiva Overall: benign gingiva 02/12/2013 None [...] bilaterally 02/12/2013 None Full Exam - General 1995 Respiratory respiratory effort/rhythm Overall: normal rate 02/12/2013 [...] masses 02/04/2013 None Full Exam - General 1994 Ears/Nose/Throat external ear Overall: normal mastoids 02/04/2013 None Full Exam - General 1994 [...] accomodation 01/17/2013 None Full Exam - General 1995 Ears/Nose/Throat otoscopic exam External auditory canal: a normal exam 01/17/2013 None Full Exam - General 1995 Ears/Nose/Throat otoscopic exam Tympanic membrane: air- fluid [...] exam 12/31/2012 None Full Exam - General 1995 Ears/Nose/Throat otoscopic exam Tympanic membrane: air- fluid [...] rounded 12/31/2012 None Full Exam - General 1994 Abdomen abdominal exam Bowel sounds: a normal exam 12/31/2012 None Full Exam - General 1994 Lymphatic neck nodes Overall: anterior cervical chain benign 12/31/2012 None Full Exam - General 1994 [...] time 12/31/2012 None Full Exam - General 1995 Psychiatric mood and affect Mood: depressed 12/31/2012 None Full Exam - General 1995 Psychiatric mood and affect Affect: mood congruent 12/31/2012 None Full Exam - General 1995 Psychiatric mood and affect Appropriateness: appropriate emotional [...] _ 12/20/2012 None Full Exam - General 1994 Cardiovascular extremities Edema present: bilateral 12/20/2012 None Full Exam - General 1994 Cardiovascular extremities Edema present: to knees 12/20/2012 None Full Exam - General 1994 Cardiovascular auscultation of heart Rate: regular rate 12/20/2012 None Full Exam - General 1995 Cardiovascular auscultation of heart Rhythm: regular rhythm 12/20/2012 None Full Exam - General 1995 Cardiovascular auscultation of heart S1: a normal exam 12/20/2012 None Full Exam - General 1995 Cardiovascular auscultation of heart S2: a normal exam 12/20/2012 None Full Exam - General 1995 Abdomen abdominal exam Contour: rounded 12/20/2012 None Full Exam - General 1995 Abdomen abdominal exam Bowel sounds: a normal exam 12/20/2012 None Full Exam - General 1995 Lymphatic neck nodes Overall: anterior cervical chain benign 12/20/2012 None Full Exam - General 1995 Neurologic deep tendon reflexes Overall: deep tendon reflexes intact 12/20/2012 None Full Exam - General 1995 Neurologic [...] left anterio leg Full Exam - General 1995 Constitutional general appearance Overall: well developed 10/29/2012 None Full Exam - General 1994 Constitutional general appearance Overall: in no acute distress 10/29/2012 None Full Exam - General 1994 Constitutional general appearance Overall: well nourished 10/29/2012 None Full Exam - General 1994 Eyes pupils and irises Overall: pupils equal, round, reactive to light and accomodation 10/29/2012 None Full Exam - General 1994 Ears/Nose/Throat external ear Overall: normal appearance 10/29/2012 None Full Exam - General 1994 Ears/Nose/Throat external ear Overall: no masses 10/29/2012 [...] clear 10/29/2012 None Full Exam - General 1994 Respiratory auscultation Overall: breath sounds clear bilaterally 10/29/2012 None Full Exam - General 1994 Respiratory respiratory effort/rhythm Overall: no retractions 10/29/2012 None Full Exam - General 1994 Respiratory respiratory effort/rhythm Overall: normal rate 10/29/2012 [...] 1994 Psychiatric orientation/consciousness Level of consciousness: alert 10/29/2012 [...] knees 08/23/2012 None Full Exam - General 1994 [...] bilaterally 08/13/2012 None Full Exam - General 1994 Respiratory respiratory effort/rhythm Overall: no retractions 08/13/2012 [...] accomodation 08/07/2012 None Full Exam - General 1994 Ears/Nose/Throat otoscopic exam External auditory canal: partial cerumen occlusion 08/07/2012 None Full Exam - General 1994 Ears/Nose/Throat otoscopic exam Tympanic membrane: not visualized 08/07/2012 None Full Exam - General 1994 Ears/Nose/Throat oral cavity/pharynx/larynx Overall: oral mucosa clear 08/07/2012 None Full Exam - General 1994 Respiratory auscultation Overall: breath sounds clear bilaterally 08/07/2012 None Full Exam - General 1994 Respiratory respiratory effort/rhythm Overall: no retractions 08/07/2012 None Full Exam - General 1994 Respiratory respiratory effort/rhythm Overall: normal rate 08/07/2012 [...] accomodation 06/07/2012 None Full Exam - General 1994 Ears/Nose/Throat otoscopic exam Overall: external auditory canals clear 06/07/2012 None Full Exam - General 1994 Ears/Nose/Throat [...] rhythm 06/07/2012 None Full Exam - General 1995 Cardiovascular auscultation of heart S1: a normal exam 06/07/2012 None Full Exam - General 1994 Cardiovascular auscultation of heart S2: a normal exam 06/07/2012 None Full Exam - General 1995 Abdomen abdominal exam Overall: no tenderness 06/07/2012 None Full Exam - General 1995 Abdomen abdominal exam Overall: normal bowel sounds 06/07/2012 None Full Exam - General 1994 Genitourinary labia and vagina Labia: cyst 06/07/2012 cyst noted to left labia-small amount of drainage noted-serosang. Approx 2cm. Slight redness Full Exam - General 1995 Lymphatic neck nodes Overall: anterior cervical chain benign 06/07/2012 None Full Exam - General 1995 Neurologic deep tendon reflexes Overall: deep tendon reflexes intact 06/07/2012 None Full Exam - General 1995 Neurologic [...] developed 05/28/2012 None Full Exam - General 1995 Constitutional general appearance Development: appears stated age 0105/28/2012 None Full Exam - General 1994 Eyes conjunctiva /eyelids Overall: conjunctiva clear 05/28/2012 None Full Exam - General 1994 Eyes pupils and irises Overall: pupils equal, round, reactive to light and accomodation 05/28/2012 None Full Exam - General 1995 Ears/Nose/Throat otoscopic exam Overall: external auditory canals clear 05/28/2012 None Full Exam - General 1995 Ears/Nose/Throat oral cavity/pharynx/larynx Overall: oral mucosa clear 05/28/2012 None Full Exam - General 1995 Respiratory auscultation Overall: breath sounds clear bilaterally 05/28/2012 None Full Exam - General 1995 Respiratory respiratory effort/rhythm Overall: no retractions 05/28/2012 None Full Exam - General 1995 Respiratory respiratory effort/rhythm Overall: normal rate 05/28/2012 None Full Exam - General 1995 Cardiovascular extremities Edema present: pitting 05/28/2012 trace to bilateral ankles Full Exam - General 1995 Cardiovascular auscultation of heart Rate: regular rate 05/28/2012 None Full Exam - General 1995 Cardiovascular auscultation of heart Rhythm: regular rhythm 05/28/2012 None Full Exam - General 1995 Cardiovascular auscultation of heart S1: a normal exam 05/28/2012 None Full Exam - General 1995 Cardiovascular auscultation of heart S2: a normal exam 05/28/2012 None Full Exam - General 1995 Abdomen abdominal exam Overall: no tenderness 05/28/2012 None Full Exam - General 1995 Abdomen abdominal exam Overall: normal bowel sounds 05/28/2012 None Full Exam - General 1995 Lymphatic neck nodes Overall: anterior cervical chain benign 05/28/2012 None Full Exam - General 1995 Neurologic deep tendon reflexes Overall: deep tendon reflexes intact 05/28/2012 None Full Exam - General 1995 Neurologic cranial nerves Overall: crainial nerves 2 - 12 grossly intact 05/28/2012 None Full Exam - General 1995 Psychiatric orientation/consciousness Overall: oriented to person, place and time 05/28/2012 None Full Exam - General 1994 Psychiatric mood and affect Affect: mood congruent 05/28/2012 None Full Exam - General 1995 Psychiatric mood and affect Appropriateness: appropriate emotional responses 05/28/2012 None Full Exam - General 1995 Psychiatric mood and affect Mood: anxious 05/28/2012 None Full Exam - General 1994 Genitourinary labia and vagina Labia: cyst 05/28/2012 cyst noted to left labia-small amount of drainage noted-serosang. Approx 2cm. Slight redness Full Exam - General 1995 Respiratory respiratory effort/rhythm Overall: normal rate 05/17/2012 None Full Exam - General 1995 Cardiovascular extremities Edema present: pitting 05/17/2012 trace [...] responses 05/17/2012 None Full Exam - General 1994 Constitutional general appearance Development: well developed 05/02/2012 None Full Exam - General 1994 Constitutional general appearance Development: appears stated age 1205/02/2012 None Full Exam - General 1994 Eyes conjunctiva /eyelids Overall: conjunctiva clear 05/02/2012 [...] bilateral ankles Full Exam - General 1994 Ears/Nose/Throat otoscopic exam Overall: external auditory canals clear 04/10/2012 None Full Exam - General 1994 Ears/Nose/Throat oral cavity/pharynx/larynx Overall: oral mucosa clear 04/10/2012 None Full Exam - General 1994 Constitutional general appearance Development: well developed 02/27/2012 None Full Exam - General 1995 Constitutional [...] exam 02/01/2012 None Full Exam - General 1995 Abdomen abdominal exam Overall: no tenderness 02/01/2012 None Full Exam - General 1995 Abdomen [...] clear 12/14/2011 None Full Exam - General 1995 Ears/Nose/Throat [...] accomodation 11/30/2011 None Full Exam - General 1994 Ears/Nose/Throat otoscopic exam External auditory canal: a normal exam 11/30/2011 None Full Exam - General 1995 Ears/Nose/Throat otoscopic exam External auditory canal: minimal cerumen 11/30/2011 None Full Exam - General 1995 Ears/Nose/Throat otoscopic exam Tympanic membrane: air- fluid level 11/30/2011 None Full Exam - General 1995 Ears/Nose/Throat oral cavity/pharynx/larynx Overall: oral mucosa clear 11/30/2011 None Full Exam - General 1995 Ears/Nose/Throat oral cavity/pharynx/larynx Overall: oropharyngeal mucosa clear 11/30/2011 None Full Exam - General 1995 Ears/Nose/Throat oral cavity/pharynx/larynx Overall: no masses 11/30/2011 [...] exam 11/17/2011 None Full Exam - General 1995 Ears/Nose/Throat otoscopic exam External auditory canal: minimal cerumen 11/17/2011 None Full Exam - General 1995 Ears/Nose/Throat otoscopic exam Tympanic membrane: air- fluid [...] tenderness 11/03/2011 None Full Exam - General 1994 Abdomen abdominal exam Overall: normal bowel sounds 11/03/2011 None Full Exam - General 1995 Lymphatic neck nodes Overall: anterior cervical chain benign 11/03/2011 None Full Exam - General 1994 Lymphatic neck nodes Overall: posterior cervical chain benign 11/03/2011 Maxillary and frontal sinuses tender bilaterally. Full Exam - General 1994 Integument inspection [...] accomodation 10/24/2011 None Full Exam - General 1994 Ears/Nose/Throat otoscopic exam External auditory canal: partial cerumen occlusion 10/24/2011 None Full Exam - General 1994 Ears/Nose/Throat otoscopic exam Tympanic membrane: not visualized 10/24/2011 None Full Exam - General 1995 Ears/Nose/Throat oral cavity/pharynx/larynx Overall: oral mucosa clear 10/24/2011 None Full Exam - General 1994 Respiratory auscultation Overall: breath sounds clear bilaterally 10/24/2011 None Full Exam - General 1995 Respiratory respiratory effort/rhythm Overall: no retractions 10/24/2011 None Full Exam - General 1995 Respiratory respiratory effort/rhythm Overall: normal rate 10/24/2011 None Full Exam - General 1995 Cardiovascular extremities Edema present: pitting 10/24/2011 None [...] 10/24/2011 great toe Full Exam - General 1994 Integument inspection of skin Consistency: moist 10/24/2011 [...] clear 08/15/2011 None Full Exam - General 1995 Ears/Nose/Throat otoscopic exam External auditory canal: a normal exam 08/15/2011 None Full Exam - General 1995 Ears/Nose/Throat otoscopic exam External auditory canal: partial cerumen occlusion 08/15/2011 None Full Exam - General 1995 Ears/Nose/Throat otoscopic exam Tympanic membrane: a normal exam 08/15/2011 None Full Exam - General 1995 [...] lips 08/15/2011 None Full Exam - General 1994 Ears/Nose/Throat lips/teeth/gingiva Overall: normal dentition 08/15/2011 None Full Exam - General 1995 Ears/Nose/Throat lips/teeth/gingiva Overall: benign gingiva 08/15/2011 None Full Exam - General 1995 Ears/Nose/Throat lips/teeth/gingiva Overall: no masses 08/15/2011 None [...] retractions 08/15/2011 None Full Exam - General 1995 Respiratory respiratory effort/rhythm Overall: normal rate 08/15/2011 [...] exam 08/09/2011 None Full Exam - General 1995 Ears/Nose/Throat otoscopic exam External auditory canal: erythematous [...] exam 08/01/2011 None Full Exam - General 1995 Ears/Nose/Throat otoscopic exam External auditory canal: minimal cerumen 08/01/2011 None Full Exam - General 1995 Ears/Nose/Throat otoscopic exam Tympanic membrane: air- fluid level 08/01/2011 None Full Exam - General 1995 Ears/Nose/Throat oral cavity/pharynx/larynx Overall: oral mucosa clear 08/01/2011 None Full Exam - General 1995 Ears/Nose/Throat oral cavity/pharynx/larynx Overall: oropharyngeal mucosa clear 08/01/2011 None Full Exam - General 1995 Ears/Nose/Throat oral cavity/pharynx/larynx Overall: no masses 08/01/2011 [...] murmurs 08/01/2011 None Full Exam - General 1994 Abdomen abdominal exam Overall: no tenderness 08/01/2011 [...] intact 08/01/2011 None Full Exam - General 1995 Constitutional general appearance Overall: well nourished 06/20/2011 None Full Exam - General 1995 Constitutional general appearance Overall: well developed 06/20/2011 None Full Exam - General 1995 Constitutional general appearance Overall: in no acute distress 06/20/2011 None Full Exam - General 1995 Eyes pupils and irises Overall: pupils equal, round, reactive to light and accomodation 06/20/2011 None Full Exam - General 1995 Psychiatric orientation/consciousness Overall: oriented to person, place [...] Date GLUC MONITOR CONT PHYS I&R CPT-4: 69763 04/27/2018 URINALYSIS NONAUTO W/O SCOPE CPT-4: 77227 04/10/2018 GLUCOSE MONITORING CONT CPT-4: 72060 04/10/2018 OCCULT BLOOD FECES CPT -4: 59420 02/22/2018 URINALYSIS NONAUTO W/O SCOPE CPT-4: 75884 02/20/2018 URINALYSIS NONAUTO W/O SCOPE CPT-4: 22919 12/14/2017 URINALYSIS NONAUTO W/O SCOPE CPT-4: 76976 11/27/2017 PPPS, SUBSEQ VISIT CPT -4: G0439 10/27/2017 GLUCOSE MONITORING CONT CPT-4: 45882 09/27/2017 URINALYSIS NONAUTO W/O SCOPE CPT-4: 06629 06/30/2017 URINALYSIS NONAUTO W/O SCOPE CPT-4: 40498 11/25/2016 URINALYSIS NONAUTO W/O SCOPE CPT-4: 77625 10/21/2016 URINALYSIS NONAUTO W/O SCOPE CPT-4: 17164 06/24/2016 URINALYSIS NONAUTO W/O SCOPE CPT-4: 14945 04/11/2016 ADMIN PNEUMOCOCCAL VACCINE SNOMED CT: [id number] CPT-4: G0009 02/26/2016 PNEUMOCOCCAL VACC 13 ANURADHA IM Formatting Model/CDA Sections, Assigned to/Jada Velazquez SNOMED CT: [id number] CPT-4: [id number] 02/26/2016 URINALYSIS NONAUTO W/O SCOPE CPT-4: 65214 02/10/2016 URINALYSIS NONAUTO W/O SCOPE CPT-4: 33144 11/27/2015 URINALYSIS NONAUTO W/O SCOPE CPT-4: 21058 11/02/2015 INITIAL PREVENTIVE EXAM CPT-4: G0402 09/29/2015 URINALYSIS NONAUTO W/O SCOPE CPT-4: 31322 07/20/2015 TRIAMCINOLONE ACET INJ NOS CPT-4: J3301 06/26/2015 URINALYSIS NONAUTO W/O SCOPE CPT-4: 01724 11/05/2014 URINALYSIS NONAUTO W/O SCOPE CPT-4: 42120 04/21/2014 CULTURE AEROBIC IDENTIFY CPT-4: 18007 12/12/2013 URINALYSIS NONAUTO W/O SCOPE CPT-4: 42582 11/18/2013 ROUTINE VENIPUNCTURE CPT-4: 75319 09/10/2013 ROUTINE VENIPUNCTURE CPT-4: 71456 08/01/2013 URINALYSIS NONAUTO W/O SCOPE CPT-4: 68827 06/28/2013 TRIAMCINOLONE ACET INJ NOS CPT-4: J3301 05/07/2013 DRAIN/INJECT JOINT/BURSA CPT-4: 71912 05/07/2013 ROUTINE VENIPUNCTURE CPT-4: 11004 03/21/2013 ROUTINE VENIPUNCTURE CPT-4: 19754 01/17/2013 URINALYSIS NONAUTO W/O SCOPE CPT-4: 79127 01/01/2013 ROUTINE VENIPUNCTURE CPT-4: 38226 12/31/2012 ROUTINE VENIPUNCTURE CPT-4: 12520 12/20/2012 URINALYSIS NONAUTO W/O SCOPE CPT-4: 39984 11/05/2012 DRAIN/INJECT JOINT/BURSA CPT-4: 54143 09/21/2012 TRIAMCINOLONE ACET INJ NOS CPT-4: J3301 09/21/2012 URINALYSIS NONAUTO W/O SCOPE CPT-4: 56250 07/19/2012 TRIAMCINOLONE ACET INJ NOS CPT-4: J3301 07/06/2012 Pneumococcal Polysaccharide Vaccine, 23-Valent, Ad CPT-4: 78469 06/07/2012 IMMUNIZATION ADMIN CPT -4: 28299 06/07/2012 TRIAMCINOLONE ACET INJ NOS CPT-4: J3301 05/02/2012 ROUTINE VENIPUNCTURE CPT-4: 10982 02/01/2012 URINALYSIS NONAUTO W/O SCOPE CPT-4: 48836 02/01/2012 TRIAMCINOLONE ACET INJ NOS CPT-4: J3301 12/14/2011 INJ TRIGGER POINT 1/2 MUSCL CPT-4: 87281 12/14/2011 PROMETHAZINE HCL INJECTION CPT-4: J2550 11/30/2011 ROUTINE VENIPUNCTURE CPT-4: 02338 11/30/2011 TRIAMCINOLONE ACET INJ NOS CPT-4: J3301 08/01/2011 DRAIN/INJECT JOINT/BURSA CPT-4: 59879 08/01/2011 THER/PROPH/DIAG INJ SC/IM CPT-4: 28126 04/18/2011 TRIAMCINOLONE ACET INJ NOS CPT-4: J3301 04/18/2011 Vital Signs Date Vital 05/21/2018 Blood Pressure 1: 98/66 Code : 8480-6 Heart Rate 1: 76 bpm Height: 5'2" SpO2: 99% Weight: 05/16/2018 BMI: 39.7 Code: 52642-9 Heart Rate 1: 82 bpm Height: 5'2" SpO2: 99% Temperature: 35.8 (C) / 96.5 (F) Weight: 217 lbs 04/27/2018 Blood Pressure 1: 122/54 Code : 8480-6 BMI: 39.7 Code : 60772-6 Heart Rate 1 : 84 bpm Height: 5'2" SpO2: 92% 04/10/2018 Blood Pressure 1: 120/68 Code : 8480-6 BMI: 39.7 Code : 01800-9 Heart Rate 1 : 87 bpm Height: 5'2" SpO2: 99% Weight: 217 lbs 03/12/2018 Blood Pressure 1: 140/70 Code : 8480-6 BMI: 40.2 Code : 11540-6 Heart Rate 1 : 78 bpm Height: 5'2" SpO2: 98% Weight: 220 lbs 02/20/2018 Blood Pressure 1: 140/70 Code : 8480-6 BMI: 40.2 Code : 22878-7 Heart Rate 1 : 96 bpm Height: 5'2" SpO2: 93% Weight: 220 lbs 11/27/2017 Blood Pressure 1: 158/78 Code : 8480-6 BMI: 40.8 Code : 85216-1 Heart Rate 1 : 100 bpm Height: 5'2" SpO2: 95% Weight: 223 lbs 10/27/2017 Blood Pressure 1: 146/70 Code : 8480-6 BMI: 41.3 Code : 70707-1 Heart Rate 1 : 82 bpm Height: 5'2" SpO2: 99% Waist Measure (cm): 119 cm Weight: 226 lbs 09/15/2017 Blood Pressure 1: 136/66 Code : 8480-6 BMI: 41.5 Code : 22189-6 Heart Rate 1 : 94 bpm Height: 5'2" SpO2: 96% Weight: 227 lbs 08/18/2017 Blood Pressure 1: 120/68 Code : 8480-6 BMI: 41.5 Code : 46585-5 Heart Rate 1 : 87 bpm Height: 5'2" SpO2: 94% Weight: 227 lbs 08/03/2017 Blood Pressure 1: 132/72 Code : 8480-6 BMI: 41.5 Code : 84857-8 Heart Rate 1 : 93 bpm Height: 5'2" SpO2: 95% Weight: 227 lbs 07/27/2017 Blood Pressure 1: 128/84 Code : 8480-6 BMI: 41.5 Code : 28243-4 Heart Rate 1 : 91 bpm Height: 5'2" SpO2: 98% Weight: 227 lbs 06/13/2017 Blood Pressure 1: 136/84 Code : 8480-6 BMI: 42.6 Code : 20659-2 Heart Rate 1 : 91 bpm Height: 5'2" SpO2: 94% Weight: 233 lbs 04/21/2017 Blood Pressure 1: 142/84 Code : 8480-6 BMI: 42.8 Code : 39012-0 Heart Rate 1 : 89 bpm Height: 5'2" SpO2: 94% Weight: 234 lbs 04/18/2017 Blood Pressure 1: 140/86 Code : 8480-6 BMI: 42.8 Code : 41208-0 Heart Rate 1 : 89 bpm Height: 5'2" SpO2: 97% Weight: 234 lbs 03/27/2017 Blood Pressure 1: 148/76 Code : 8480-6 BMI: 42.6 Code : 39001-7 Heart Rate 1 : 92 bpm Height: [...] Code : 8480-6 BMI: 44.3 Code : 96292-7 Heart Rate 1 : 90 bpm Height: 5'2" SpO2: 96% Weight: 242 lbs 01/30/2017 Blood Pressure 1: 132/72 Code : 8480-6 Heart Rate 1: 97 bpm Height: 5'2" SpO2: 96% Weight: 01/16/2017 Blood Pressure 1: 138/76 Code : 8480-6 BMI: 43.3 Code : 23998-6 Heart Rate 1 : 84 bpm Height: 5'2" SpO2: 99% Weight: 237 lbs 12/13/2016 Blood Pressure 1: 144/78 Code : 8480-6 Heart Rate 1: 96 bpm Height: 5'2" SpO2: 98% Temperature: 36.6 (C) / 97.9 (F) Weight: 11/11/2016 Blood Pressure 1: 144/80 Code : 8480-6 BMI: 43.0 Code : 88580-0 Heart Rate 1 : 89 bpm Height: 5'2" SpO2: 94% Temperature: 36.1 (C) / 97.0 (F) Weight: 235 lbs 10/28/2016 Blood Pressure 1: 156/82 Code : 8480-6 BMI: 43.9 Code : 90539-3 Heart Rate 1 : 78 bpm Height: 5'2" SpO2: 98% Temperature: 36.0 (C) / 96.8 (F) Weight: 240 lbs 10/13/2016 Blood Pressure 1: 138/78 Code : 8480-6 Heart Rate 1: 80 bpm Height: SpO2: 98% Weight: 09/23/2016 Blood Pressure 1: 142/76 Code : 8480-6 Heart Rate 1: 87 bpm Height: 5'2" SpO2: 98% Temperature: 35.9 (C) / 96.6 (F) Weight: 09/13/2016 Blood Pressure 1: 150/98 Code : 8480-6 BMI: 42.4 Code : 20684-8 Heart Rate 1 : 95 bpm Height: 5'2" SpO2: 98% Weight: 232 lbs 08/09/2016 Blood Pressure 1: 138/80 Code : 8480-6 BMI: 41.0 Code : 03274-5 Heart Rate 1 : 98 bpm Height: 5'2" SpO2: 97% Weight: 224 lbs 07/26/2016 Blood Pressure 1: 148/82 Code : 8480-6 BMI: 42.4 Code : 38033-1 Heart Rate 1 : 89 bpm Height: 5'2" SpO2: 97% Weight: 232 lbs 05/24/2016 Blood Pressure 1: 146/72 Code : 8480-6 BMI: 42.4 Code : 36617-6 Heart Rate 1 : 89 bpm Height: 5'2" SpO2: 99% Weight: 232 lbs 04/19/2016 Blood Pressure 1: 130/88 Code : 8480-6 BMI: 42.4 Code : 86895-6 Heart Rate 1 : 88 bpm Height: 5'2" SpO2: 98% Weight: 232 lbs 04/11/2016 Blood Pressure 1: 140/80 Code : 8480-6 BMI: 41.7 Code : 68906-8 Heart Rate 1 : 97 bpm Height: 5'2" SpO2: 95% Weight: 228 lbs 03/21/2016 Blood Pressure 1: 138/80 Code : 8480-6 BMI: 44.4 Code : 74604-1 Height: 5'2" Weight: 243 lbs 03/11/2016 Blood Pressure 1: 138/82 Code : 8480-6 BMI: 44.4 Code : 20049-1 Heart Rate 1 : 86 bpm Height: 5'2" SpO2: 95% Weight: 243 lbs 02/26/2016 Blood Pressure 1: 130/82 Code : 8480-6 BMI: 43.9 Code : 49225-0 Heart Rate 1 : 86 bpm Height: 5'2" SpO2: 97% Weight: 240 lbs 02/02/2016 Blood Pressure 1: 136/86 Code : 8480-6 Heart Rate 1: 56 bpm Height: SpO2: 96% Weight: 12/17/2015 Blood Pressure 1: 140/80 Code : 8480-6 BMI: 40.2 Code : 17654-5 Heart Rate 1 : 100 bpm Height: 5'2" SpO2: 99% Weight: 220 lbs 12/08/2015 Blood Pressure 1: 132/86 Code : 8480-6 Heart Rate 1: 100 bpm Height: SpO2: 97% Weight: 11/27/2015 Blood Pressure 1: 128/82 Code : 8480-6 BMI: 39.3 Code : 39535-8 Heart Rate 1 : 112 bpm Height: 5'2" SpO2: 96% Weight: 215 lbs 11/12/2015 Blood Pressure 1: 168/88 Code : 8480-6 Heart Rate 1: 106 bpm Height: 5'2" SpO2: 96% Weight: 11/10/2015 Blood Pressure 1: 156/80 Code : 8480-6 Heart Rate 1: 94 bpm Height: 5'2" SpO2: 96% Weight: 10/27/2015 Blood Pressure 1: 142/76 Code : 8480-6 BMI: 40.8 Code : 09326-1 Heart Rate 1 : 86 bpm Height: 5'2" SpO2: 97% Weight: 223 lbs 09/29/2015 Blood Pressure 1: 132/88 Code : 8480-6 BMI: 41.7 Code : 31064-3 Heart Rate 1 : 104 bpm Height: 5'2" SpO2: 94% Weight: 228 lbs 09/22/2015 Blood Pressure 1: 130/80 Code : 8480-6 BMI: 41.7 Code : 69488-3 Heart Rate 1 : 89 bpm Height: 5'2" SpO2: 97% Weight: 228 lbs 09/01/2015 Blood Pressure 1: 138/88 Code : 8480-6 BMI: 40.6 Code : 16462-2 Heart Rate 1 : 95 bpm Height: 5'2" SpO2: 95% Weight: 222 lbs 08/10/2015 Blood Pressure 1: 140/82 Code : 8480-6 BMI: 41.0 Code : 42755-8 Heart Rate 1 : 84 bpm Height: 5'2" SpO2: 97% Weight: 224 lbs 06/26/2015 Blood Pressure 1: 152/72 Code : 8480-6 BMI: 41.2 Code : 90258-4 Heart Rate 1 : 92 bpm Height: 5'2" SpO2: 96% Weight: 225 lbs 04/14/2015 Blood Pressure 1: 158/86 Code : 8480-6 BMI: 41.2 Code : 54468-9 Heart Rate 1 : 63 bpm Height: 5'2" SpO2: 93% Weight: 225 lbs 03/03/2015 Blood Pressure 1: 152/80 Code : 8480-6 BMI: 40.1 Code : 53057-8 Heart Rate 1 : 101 bpm Height: 5'2" SpO2: 97% Weight: 219 lbs 01/15/2015 Blood Pressure 1: 127/76 Code : 8480-6 BMI: 40.6 Code : 93707-7 Heart Rate 1 : 109 bpm Height: 5'2" SpO2: 97% Weight: 222 lbs 01/01/2015 Blood Pressure 1: 136/64 Code : 8480-6 BMI: 40.4 Code : 20524-6 Heart Rate 1 : 94 bpm Height: 5'2" SpO2: 96% Weight: 221 lbs 12/25/2014 Blood Pressure 1: 146/80 Code : 8480-6 Heart Rate 1: 95 bpm Height: 5'2" SpO2: 94% 11/04/2014 Blood Pressure 1: 110/70 Code : 8480-6 BMI: 40.2 Code : 89411-4 Heart Rate 1 : 878 bpm Height: 5'2" SpO2: 97% Weight: 220 lbs 09/08/2014 Blood Pressure 1: 142/78 Code : 8480-6 BMI: 39.5 Code : 67828-9 Heart Rate 1 : 97 bpm Height: 5'2" SpO2: 98% Weight: 216 lbs 08/29/2014 Blood Pressure 1: 140/90 Code : 8480-6 Blood Pressure 2: 120/70 Code: 8480-6 BMI: 40.2 Code: 08521-5 Heart Rate 1: 88 bpm Height: 5'2" Weight: 220 lbs 06/30/2014 Blood Pressure 1: 132/74 Code : 8480-6 BMI: 39.1 Code : 11245-1 Heart Rate 1 : 76 bpm Height: 5'2" Weight: 214 lbs 06/12/2014 Blood Pressure 1: 118/76 Code : 8480-6 BMI: 40.4 Code : 06041-7 Heart Rate 1 : 86 bpm Height: 5'2" SpO2: 96% Weight: 221 lbs 05/26/2014 Blood Pressure 1: 128/78 Code : 8480-6 BMI: 39.5 Code : 06903-9 Heart Rate 1 : 76 bpm Height: 5'2" Weight: 216 lbs 04/15/2014 Blood Pressure 1: 144/72 Code : 8480-6 BMI: 40.8 Code : 46055-0 Heart Rate 1 : 60 bpm Height: 5'2" Weight: 223 lbs 03/25/2014 Blood Pressure 1: 118/72 Code : 8480-6 BMI: 41.2 Code : 31642-7 Heart Rate 1 : 80 bpm Height: 5'2" Weight: 225 lbs 03/03/2014 Blood Pressure 1: 138/86 Code : 8480-6 BMI: 41.5 Code : 22906-7 Heart Rate 1 : 104 bpm Height: 5'2" Temperature: 36.1 (C) / 97.0 (F) Weight: 227 lbs 02/13/2014 Blood Pressure 1: 142/88 Code : 8480-6 BMI: 40.8 Code : 17702-0 Heart Rate 1 : 88 bpm Height: 5'2" Weight: 223 lbs 01/27/2014 Blood Pressure 1: 124/68 Code : 8480-6 BMI: 39.9 Code : 33738-3 Heart Rate 1 : 89 bpm Height: 5'2" SpO2: 94% Weight: 218 lbs 12/26/2013 Blood Pressure 1: 108/52 Code : 8480-6 BMI: 41.2 Code : 97778-2 Heart Rate 1 : 96 bpm Height: 5'2" Weight: 225 lbs 12/12/2013 Blood Pressure 1: 158/88 Code : 8480-6 BMI: 42.6 Code : 12580-3 Heart Rate 1 : 80 bpm Height: 5'2" Weight: 233 lbs 11/14/2013 Blood Pressure 1: 120/60 Code : 8480-6 BMI: 42.4 Code : 95817-8 Heart Rate 1 : 96 bpm Height: 5'2" Temperature: 5423.3 (C ) / 9794.0 (F) Weight: 232 lbs 10/21/2013 Blood Pressure 1: 100/60 Code : 8480-6 BMI: 41.9 Code : 33910-3 Heart Rate 1 : 96 bpm Height: 5'2" Weight: 229 lbs 10/03/2013 Blood Pressure 1: 122/72 Code : 8480-6 BMI: 42.3 Code : 01890-3 Heart Rate 1 : 84 bpm Height: 5'2" Weight: 231 lbs 09/27/2013 Blood Pressure 1: 112/58 Code : 8480-6 Heart Rate 1: 72 bpm SpO2: 93% Temperature: 36.2 (C) / 97.1 (F) Weight: 09/23/2013 Blood Pressure 1: 108/76 Code : 8480-6 BMI: 42.4 Code : 45745-0 Heart Rate 1 : 95 bpm Height: 5'2" SpO2: 96% Weight: 232 lbs 09/20/2013 Blood Pressure 1: 150/88 Code : 8480-6 BMI: 42.4 Code : 49863-2 Heart Rate 1 : 104 bpm Height: 5'2" Weight: 232 lbs 09/10/2013 Blood Pressure 1: 112/62 Code : 8480-6 Heart Rate 1: 88 bpm Weight: 238 lbs 08/19/2013 Blood Pressure 1: 102/58 Code : 8480-6 BMI: 43.7 Code : 97493-2 Heart Rate 1 : 80 bpm Height: 5'2" Weight: 239 lbs 08/12/2013 Blood Pressure 1: 110/60 Code : 8480-6 BMI: 43.3 Code : 68719-0 Heart Rate 1 : 90 bpm Height: 5'2" SpO2: 96% Weight: 236 lbs 8 oz 08/01/2013 Blood Pressure 1: 128/72 Code : 8480-6 BMI: 42.6 Code : 74503-6 Heart Rate 1 : 78 bpm Height: 5'2" SpO2: 97% Weight: 233 lbs 07/19/2013 Blood Pressure 1: 100/60 Code : 8480-6 BMI: 44.3 Code : 88646-7 Heart Rate 1 : 92 bpm Height: 5'2" Temperature: 36.2 (C) / 97.2 (F) Weight: 242 lbs 07/15/2013 Blood Pressure 1: 180/92 Code : 8480-6 Heart Rate 1: 115 bpm SpO2: 98% Weight: 06/27/2013 Blood Pressure 1: 114/64 Code : 8480-6 BMI: 44.1 Code : 20310-4 Heart Rate 1 : 114 bpm Height: 5'2" SpO2: 93% Weight: 241 lbs 06/10/2013 Blood Pressure 1: 174/86 Code : 8480-6 BMI: 44.1 Code : 01780-5 Heart Rate 1 : 132 bpm Height: 5'2" SpO2: 94% Temperature: 35.6 (C) / 96.0 (F) Weight: 241 lbs 05/07/2013 Blood Pressure 1: 160/88 Code : 8480-6 BMI: 43.5 Code : 75426-0 Heart Rate 1 : 108 bpm Height: 5'2" SpO2: 96% Weight: 238 lbs 04/16/2013 Blood Pressure 1: 116/62 Code : 8480-6 BMI: 44.6 Code : 57850-7 Heart Rate 1 : 90 bpm Height: 5'2" SpO2: 94% Weight: 244 lbs 03/21/2013 Blood Pressure 1: 102/64 Code : 8480-6 BMI: 42.8 Code : 63219-0 Height: 5'2" Weight: 234 lbs 02/12/2013 Blood Pressure 1: 130/78 Code : 8480-6 BMI: 42.0 Code : 88223-7 Heart Rate 1 : 100 bpm Height: 5'2" Weight: 229 lbs 8 oz 02/04/2013 Blood Pressure 1: 126/68 Code : 8480-6 BMI: 44.3 Code : 60261-6 Heart Rate 1 : 88 bpm Height: 5'2" Weight: 242 lbs 01/17/2013 Blood Pressure 1: 132/76 Code : 8480-6 Heart Rate 1: 121 bpm SpO2: 97% Weight: 242 lbs 12/31/2012 Blood Pressure 1: 144/90 Code : 8480-6 BMI: 43.0 Code : 36431-9 Heart Rate 1 : 96 bpm Height: 5'2" Temperature: 36.2 (C) / 97.2 (F) Weight: 235 lbs 12/20/2012 Blood Pressure 1: 156/96 Code : 8480-6 BMI: 42.4 Code : 26487-1 Heart Rate 1 : 96 bpm Height: [...] Code : 8480-6 BMI: 38.8 Code : 86483-7 Heart Rate 1 : 96 bpm Height: 5'2" Temperature: 36.3 (C) / 97.3 (F) Weight: 212 lbs 08/23/2012 Blood Pressure 1: 116/72 Code : 8480-6 BMI: 38.3 Code : 12652-3 Heart Rate 1 : 92 bpm Height: 5'2" Weight: 209 lbs 8 oz 08/13/2012 Blood Pressure 1: 140/92 Code : 8480-6 BMI: 37.3 Code : 71769-8 Heart Rate 1 : 104 bpm Height: 5'2" Weight: 204 lbs 08/07/2012 Blood Pressure 1: 148/98 Code : 8480-6 BMI: 36.6 Code : 14691-6 Heart Rate 1 : 102 bpm Height: [...] Code : 8480-6 BMI: 35.3 Code : 09746-0 Heart Rate 1 : 105 bpm Height: [...] december - 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 She states that she saw her sailing instructor and was to be started on another [...] lesion Alleviating Factors medication 09/10/2013 went to [facility] on Monday and start on Cipro diabetes [...] differently. States she did eat BBQ from [employer] yesterday for lunch. 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 PATIENT, LEVEL IV Diagnosis: Other hypotension[ICD10: I95.89] Diagnosis: Type 2 diabetes mellitus with hyperglycemia[ICD10: E11.65] Diagnosis: Acute recurrent pansinusitis[ICD10: J01.41] Diagnosis: Headache[ICD10: R51] Diagnosis: Slurred speech[ICD10: R47.81] Diagnosis: Repeated falls[ICD10: R29.6] Rika Motta MD, [facility] CPT-4: 63697 05/21/2018 ([id number]) 60214 EST. PATIENT, LEVEL IV Diagnosis: Essential (primary) hypertension[ICD10: I10] Diagnosis: Generalized anxiety disorder[ICD10: F41.1] Tessie Motta MD, [facility] CPT-4: 33403 05/16/2018 ([id number]) 33968 EST. PATIENT, LEVEL III Diagnosis: Cough[ICD10: R05] Diagnosis: Chronic maxillary sinusitis[ICD10: J32.0] Diagnosis: Type 2 diabetes mellitus with hyperglycemia[ICD10: E11.65] [facility] CPT-4: 20879 04/27/2018 [id number]) 86671 EST. PATIENT, LEVEL IV Diagnosis: Essential (primary) hypertension[ICD10: I10] Diagnosis: Type 2 diabetes mellitus with hyperglycemia[ICD10: E11.65] Diagnosis: Generalized anxiety disorder[ICD10: F41.1] Diagnosis: Weakness[ICD10: R53.1] [facility] CPT-4: 78122 04/10/2018 [id number]) 20767 EST. PATIENT, LEVEL IV Diagnosis: Type 2 diabetes mellitus with hyperglycemia[ICD10: E11.65] Diagnosis: Low back pain[ICD10: M54.5] Diagnosis: Essential (primary) hypertension[ICD10: I10] Diagnosis: Generalized anxiety disorder[ICD10: F41.1] Rika Motta MD, [facility] CPT-4: 54272 03/12/2018 ([id number]) 87625 EST. PATIENT, LEVEL III Diagnosis: Type 2 diabetes mellitus with hyperglycemia[ICD10: E11.65] Diagnosis: Essential (primary) hypertension[ICD10: I10] Diagnosis: Dysuria[ICD10: R30.0] Diagnosis: Vitamin D deficiency, unspecified[ICD10: E55.9] Diagnosis: Low back pain[ICD10: M54.5] Rika Motta MD, [facility] CPT-4: 85200 02/20/2018 ([id number]) 94018 EST. PATIENT, LEVEL III Diagnosis: Dysuria[ICD10: R30.0] Diagnosis: Essential (primary) hypertension[ICD10: I10] Rika Motta MD, [facility] CPT-4: 77885 11/27/2017 ([id number]) 63200 EST. PATIENT, LEVEL III Diagnosis: Type 2 diabetes mellitus with hyperglycemia[ICD10: E11.65] Diagnosis: Chronic pain syndrome[ICD10: G89.4] Rika Motta MD, [facility] CPT-4: 71519 09/15/2017 ([id number]) 68814 EST. 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 PATIENT, LEVEL III Diagnosis: Chronic maxillary sinusitis[ICD10: J32.0] Diagnosis: Type 2 diabetes mellitus with hyperglycemia[ICD10: E11.65] Diagnosis: Hordeolum externum left upper eyelid[ICD10: H00.014] Rika Motta MD, [facility] CPT-4: 86138 08/03/2017 ([id number]) 56994 EST. PATIENT, LEVEL IV Diagnosis: Type 2 diabetes mellitus with hyperglycemia[ICD10: E11.65] Diagnosis: Hordeolum externum left upper eyelid[ICD10: H00.014] Diagnosis: Essential (primary) hypertension[ICD10: I10] Diagnosis: Chronic obstructive pulmonary disease, unspecified[ICD10: J44.9] Rika Motta MD, [facility] CPT-4: 36156 07/27/2017 ([id number]) 08276 EST. PATIENT, LEVEL IV Diagnosis: Type 2 diabetes mellitus with hyperglycemia[ICD10: E11.65] Diagnosis: Essential (primary) hypertension[ICD10: I10] Tessie Motta MD, [facility] CPT-4: 58436 06/13/2017 48602 EST. PATIENT, LEVEL IV Diagnosis: Periapical abscess without sinus[ICD10: K04.7] Arlette Motta MD, [facility] CPT-4: 84734 04/21/2017 ([id number]) 42741 EST. PATIENT, LEVEL IV Diagnosis: Type 2 diabetes mellitus with hyperglycemia[ICD10: E11.65] Diagnosis: Cellulitis of abdominal wall[ICD10: L03.311] Diagnosis: Chronic pain syndrome[ICD10: G89.4] Diagnosis: Essential (primary) hypertension[ICD10: I10] Diagnosis: Unsteadiness on feet[ICD10: R26.81] Rika Motta MD, [facility] CPT-4: 07972 04/18/2017 ([id number]) 53066 EST. PATIENT, LEVEL IV Diagnosis: Type 2 diabetes mellitus with hyperglycemia[ICD10: E11.65] Diagnosis: Hypokalemia[ICD10: E87.6] Diagnosis: Essential (primary) hypertension[ICD10: I10] Diagnosis: Paroxysmal atrial fibrillation[ICD10: I48.0] Rika Motta MD, [facility] CPT-4: 87598 03/27/2017 ([id number]) 48548 EST. PATIENT, LEVEL IV Diagnosis: Essential (primary) hypertension[ICD10: I10] Diagnosis: Type 2 diabetes mellitus with hyperglycemia[ICD10: E11.65] Diagnosis: Hypokalemia[ICD10: E87.6] Diagnosis: Generalized abdominal pain[ICD10: R10.84] Rika Motta MD, [facility] CPT-4: 80399 02/27/2017 ([id number]) 34669 EST. PATIENT, LEVEL III Diagnosis: Drug induced constipation[ICD10: K59.03] Rika Motta MD, [facility] CPT-4: 99118 02/21/2017 ([id number]) 02378 EST. PATIENT, LEVEL IV Diagnosis: Generalized abdominal pain[ICD10: R10.84] Diagnosis: Hypokalemia[ICD10: E87.6] Diagnosis: Hypomagnesemia[ICD10: E83.42] Rika Motta MD, [facility] CPT-4: 25586 02/17/2017 ([id number]) 22518 EST. PATIENT, LEVEL IV Diagnosis: Paroxysmal atrial fibrillation[ICD10: I48.0] Diagnosis: Essential (primary) hypertension[ICD10: I10] Diagnosis: Chronic obstructive pulmonary disease, unspecified[ICD10: J44.9] Diagnosis: Type 2 diabetes mellitus with hyperglycemia[ICD10: E11.65] Diagnosis: Diarrhea, unspecified[ICD10: R19.7] Rika Motta MD, [facility] CPT-4: 49777 02/13/2017 ([id number]) 57567 EST. PATIENT, LEVEL IV Diagnosis: Type 2 diabetes mellitus with hyperglycemia[ICD10: E11.65] Diagnosis: Pain in right shoulder[ICD10: M25.511] Diagnosis: Chronic maxillary sinusitis[ICD10: J32.0] Rika Motta MD, [facility] CPT-4: 41144 01/30/2017 ([id number]) 78693 EST. PATIENT, LEVEL IV Diagnosis: Essential (primary) hypertension[ICD10: I10] Diagnosis: Type 2 diabetes mellitus with hyperglycemia[ICD10: E11.65] Diagnosis: Hypothyroidism, unspecified[ICD10: E03.9] Diagnosis: Generalized anxiety disorder[ICD10: F41.1] Diagnosis: Chronic pain syndrome[ICD10: G89.4] Diagnosis: Restless legs syndrome[ICD10: G25.81] Diagnosis: Obstructive sleep apnea (adult) (pediatric)[ICD10: G47.33] Rika Motta MD, [facility] CPT-4: 12841 01/16/2017 51613 EST. PATIENT, LEVEL IV Diagnosis: Other acute sinusitis[ICD10: J01.80] Diagnosis: Diplopia[ICD10: H53.2] Arlette Motta MD, [facility] CPT-4: 52834 12/13/2016 ([id number]) 38462 EST. PATIENT, LEVEL IV Diagnosis: Essential (primary) hypertension[ICD10: I10] Diagnosis: Fasciculation[ICD10: R25.3] Diagnosis: Generalized anxiety disorder[ICD10: F41.1] Diagnosis: Other obesity due to excess calories[ICD10: E66.09] Diagnosis: Zoster without complications[ICD10: B02.9] Diagnosis: Unilateral primary osteoarthritis, right knee[ICD10: M17.11] Diagnosis: Unsteadiness on feet[ICD10: R26.81] Rika Motta MD, [facility] CPT-4: 17334 11/11/2016 ([id number]) 70708 EST. PATIENT, LEVEL IV Diagnosis: Zoster without complications[ICD10: B02.9] Diagnosis: Type 2 diabetes mellitus with hyperglycemia[ICD10: E11.65] Diagnosis: Vomiting, unspecified[ICD10: R11.10] Rika Motta MD, [facility] CPT-4: 96851 10/28/2016 ([id number]) 68031 EST. PATIENT, LEVEL III Diagnosis: Pain in right knee[ICD10: M25.561] Diagnosis: Zoster without complications[ICD10: B02.9] Rika Motta MD, [facility] CPT-4: 90217 10/13/2016 ([id number]) 07309 EST. PATIENT, LEVEL IV Diagnosis: Acute recurrent maxillary sinusitis[ICD10: J01.01] Diagnosis: Low back pain[ICD10: M54.5] Diagnosis: Pain in right knee[ICD10: M25.561] Diagnosis: Allergic rhinitis due to pollen[ICD10: J30.1] Rika Motta MD, [facility] CPT-4: 26314 09/23/2016 ([id number]) 65729 EST. PATIENT, LEVEL IV Diagnosis: Pain in right shoulder[ICD10: M25.511] Diagnosis: Type 2 diabetes mellitus with hyperglycemia[ICD10: E11.65] Diagnosis: Cervicalgia[ICD10: M54.2] Diagnosis: Candidiasis of skin and nail[ICD10: B37.2] Diagnosis: Low back pain[ICD10: M54.5] Rika Motta MD, [facility] CPT-4: 75226 09/13/2016 ([id number]) 55954 EST. 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 PATIENT, LEVEL IV Diagnosis: Type 2 diabetes mellitus with hyperglycemia[ICD10: E11.65] Diagnosis: Candidiasis of skin and nail[ICD10: B37.2] Diagnosis: Chronic obstructive pulmonary disease, unspecified[ICD10: J44.9] Diagnosis: Paroxysmal atrial fibrillation[ICD10: I48.0] Diagnosis: Pneumonia, unspecified organism[ICD10: J18.9] Rika Motta MD, [facility] CPT-4: 09666 07/26/2016 ([id number]) 06101 EST. PATIENT, LEVEL IV Diagnosis: Type 2 diabetes mellitus with hyperglycemia[ICD10: E11.65] Diagnosis: Generalized anxiety disorder[ICD10: F41.1] Diagnosis: Essential (primary) hypertension[ICD10: I10] Diagnosis: Chronic pain syndrome[ICD10: G89.4] Rika Motta MD, [facility] CPT-4: 17018 05/24/2016 ([id number]) 97325 EST. PATIENT, LEVEL IV Diagnosis: Menopausal and female climacteric states[ICD10: N95.1] Diagnosis: Type 2 diabetes mellitus with hyperglycemia[ICD10: E11.65] Diagnosis: Generalized anxiety disorder[ICD10: F41.1] Rika Motta MD, [facility] CPT-4: 88516 04/19/2016 ([id number]) 50295 EST. PATIENT, LEVEL IV Diagnosis: Type 2 diabetes mellitus with hyperglycemia[ICD10: E11.65] Diagnosis: Generalized anxiety disorder[ICD10: F41.1] Diagnosis: Essential (primary) hypertension[ICD10: I10] Diagnosis: Dysuria[ICD10: R30.0] Rika Motta MD, [facility] CPT-4: 39763 04/11/2016 ([id number]) 19294 EST. PATIENT, LEVEL IV Diagnosis: Generalized anxiety disorder[ICD10: F41.1] Diagnosis: Major depressive disorder, single episode, mild[ICD10: F32.0] Diagnosis: Hypothyroidism, unspecified[ICD10: E03.9] Diagnosis: Type 2 diabetes mellitus with hyperglycemia[ICD10: E11.65] Rika Motta MD, [facility] CPT-4: 57252 03/21/2016 ([id number]) 82618 EST. PATIENT, LEVEL IV Diagnosis: Type 2 diabetes mellitus with hyperglycemia[ICD10: E11.65] Diagnosis: Cellulitis of right lower limb[ICD10: L03.115] Diagnosis: Other elevated white blood cell count[ICD10: D72.828] Diagnosis: Localized edema[ICD10: R60.0] Rika Motta MD, [facility] CPT-4: 79394 03/11/2016 [id number]) 87658 EST. PATIENT, LEVEL IV Diagnosis: Type 2 diabetes mellitus with hyperglycemia[ICD10: E11.65] Diagnosis: Localized edema[ICD10: R60.0] Diagnosis: Other conjunctivitis[ICD10: H10.89] Diagnosis: Obstructive sleep apnea (adult) (pediatric)[ICD10: G47.33] Diagnosis: Unspecified asthma, uncomplicated[ICD10: J45.909] Diagnosis: VAC STREP PNEUMONIAE-FLU[ICD10: Z23] Rika Motta MD, [facility] CPT-4: 41523 02/26/2016 ([id number]) 24885 EST. PATIENT, LEVEL IV Diagnosis: Essential (primary) hypertension[ICD10: I10] Diagnosis: Paroxysmal atrial fibrillation[ICD10: I48.0] Diagnosis: Type 2 diabetes mellitus with hyperglycemia[ICD10: E11.65] Diagnosis: Obstructive sleep apnea (adult) (pediatric)[ICD10: G47.33] Diagnosis: Chronic obstructive pulmonary disease, unspecified[ICD10: J44.9] Rika Motta MD, [facility] CPT-4: 63258 02/02/2016 ([id number]) 34462 EST. 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 PATIENT, LEVEL IV Diagnosis: Type 2 diabetes mellitus with hyperglycemia[ICD10: E11.65] Diagnosis: Generalized anxiety disorder[ICD10: F41.1] Diagnosis: Essential (primary) hypertension[ICD10: I10] Diagnosis: Restless legs syndrome[ICD10: G25.81] Diagnosis: Dysuria[ICD10: R30.0] Rika Motta MD, [facility] CPT-4: 52014 11/27/2015 04724 EST. PATIENT, LEVEL IV Diagnosis: Addisonian crisis[ICD10: E27.2] Arlette Motta MD, [facility] CPT-4 : 22929 11/12/2015 05535 EST. PATIENT, LEVEL IV Diagnosis: Acute bronchitis due to other specified organisms[ICD10: J20.8] Diagnosis: Other acute sinusitis[ICD10: J01.80] Diagnosis: Other malaise[ICD10: R53.81] Diagnosis: Cough[ICD10: R05] Arlette Motta MD, [facility] CPT-4: 28435 11/10/2015 77628 EST. PATIENT, LEVEL IV Diagnosis: Pain in left knee[ICD10: M25.562] Diagnosis: Cellulitis of right toe[ICD10: L03.031] Arlette Motta MD, [facility] CPT-4: 53816 10/27/2015 ([id number]) [id number] EST. PATIENT, LEVEL IV Diagnosis: Essential (primary) hypertension[ICD10: I10] Diagnosis: Localized edema[ICD10: R60.0] Diagnosis: Type 2 diabetes mellitus with hyperglycemia[ICD10: E11.65] Rika Motta MD, [facility] CPT-4: 08632 09/22/2015 ([id number]) [id number] EST. PATIENT, LEVEL IV Diagnosis: Essential (primary) hypertension[ICD10: I10] Diagnosis: Type 2 diabetes mellitus with hyperglycemia[ICD10: E11.65] Diagnosis: Cellulitis of right toe[ICD10: L03.031] Rika Motta MD, [facility] CPT-4: 31637 09/01/2015 ([id number]) 05049 EST. PATIENT, LEVEL IV Diagnosis: Type 2 diabetes mellitus with hyperglycemia[ICD10: E11.65] Diagnosis: Essential (primary) hypertension[ICD10: I10] Diagnosis: Generalized anxiety disorder[ICD10: F41.1] Diagnosis: Hypothyroidism, unspecified[ICD10: E03.9] Diagnosis: Body mass index (BMI) 40.0-44.9, adult[ICD10: Z68.41] Rika Motta MD, [facility] CPT-4: 20180 08/10/2015 89206 EST. PATIENT, LEVEL IV Diagnosis: Acute bronchitis due to other specified organisms[ICD10: J20.8] Diagnosis: Pain in left knee[ICD10: M25.562] Diagnosis: Type 2 diabetes mellitus with hyperglycemia[ICD10: E11.65] Arlette Motta MD, [facility] CPT-4: 03462 06/26/2015 ([id number]) 58389 EST. PATIENT, LEVEL IV Diagnosis: Cellulitis of right lower limb[ICD10: L03.115] Diagnosis: Type 2 diabetes mellitus with hyperglycemia[ICD10: E11.65] Diagnosis: Essential (primary) hypertension[ICD10: I10] Diagnosis: Edema, unspecified[ICD10: R60.9] Rika Motta MD, [facility] CPT-4: 80269 04/14/2015 ([id number]) 14692 EST. PATIENT, LEVEL IV Diagnosis: Essential (primary) hypertension[ICD10: I10] Diagnosis: Type 2 diabetes mellitus with hyperglycemia[ICD10: E11.65] Diagnosis: Localized edema[ICD10: R60.0] Diagnosis: Dysuria[ICD10: R30.0] Rika Motta MD, [facility] CPT-4: 35195 03/03/2015 ([id number]) 40531 EST. PATIENT, LEVEL III Diagnosis: Blister of leg[ICD9: 916.2] Diagnosis: Rash[ICD9: 782.1] Diagnosis: EDEMA[ICD9: 782.3] Tessie Motta MD, [facility] CPT-4: 29615 01/15/2015 ([id number]) 44432 EST. PATIENT, LEVEL IV Diagnosis: Cellulitis, leg[ICD9: 682.6] Diagnosis: DIABETES TYPE II[ICD9: 250.00] Tessie Motta MD, [facility] CPT- 4: 13810 01/01/2015 ([id number]) Miscellaneous no charge Diagnosis: CVA (cerebral vascular accident)[ICD9: 434.91] Isabella Motta MD, [facility] CPT-4: 91250 12/25/2014 ([id number]) 18591 EST. PATIENT, LEVEL IV Diagnosis: ESSENTIAL HYPERTENSION[ICD9: 401.9] Diagnosis: DM W/O COMPLICATION TYPE II, UNCONTROLLED[ICD9: 250.02] Diagnosis: EDEMA[ICD9: 782.3] Diagnosis: Dysuria[ICD9: 788.1] Rika Motta MD, [facility] CPT-4: 92553 11/04/2014 ([id number]) 34705 EST. PATIENT, LEVEL IV Diagnosis: EDEMA[ICD9: 782.3] Diagnosis: Cellulitis of right leg[ICD9: 682.6] Diagnosis: Allergic rhinitis[ICD9: 477.9] Rika Motta MD, [facility] CPT-4: 81775 09/08/2014 ([id number]) 92998 EST. PATIENT, LEVEL IV Diagnosis: EDEMA[ICD9: 782.3] Diagnosis: ESSENTIAL HYPERTENSION[ICD9: 401.9] Diagnosis: DIABETES TYPE II[ICD9: 250.00] Diagnosis: Cellulitis of right leg[ICD9: 682.6] Rika Motta MD, [facility] CPT-4: 09602 08/29/2014 ([id number]) 32330 EST. PATIENT, LEVEL III Diagnosis: EDEMA[ICD9: 782.3] Diagnosis: DIABETES TYPE II[ICD9: 250.00] Tessie Motta MD, [facility] CPT- 4: 95097 06/30/2014 ([id number]) 33109 EST. PATIENT, LEVEL IV Diagnosis: EDEMA[ICD9: 782.3] Diagnosis: DM W/O COMPLICATION TYPE II, UNCONTROLLED[ICD9: 250.02] Diagnosis: Sciatica[ICD9: 724.3] Tessie Motta MD, [facility] CPT-4: 42476 06/12/2014 ([id number]) 45424 EST. PATIENT, LEVEL III Diagnosis: Cellulitis, leg[ICD9: 682.6] Diagnosis: EDEMA[ICD9: 782.3] Rika Motta MD, [facility] CPT-4: 06172 05/26/2014 ([id number]) 44432 EST. PATIENT, LEVEL IV Diagnosis: DIABETES TYPE II[ICD9: 250.00] Diagnosis: Chronic sinusitis[ICD9: 473.9] Tessie Motta MD, [facility] CPT- 4: 53801 04/15/2014 ([id number]) 37572 EST. PATIENT, LEVEL IV Diagnosis: DM W/O COMPLICATION TYPE II, UNCONTROLLED[ICD9: 250.02] Diagnosis: CHRONIC SINUSITIS[ICD9: 473.9] Diagnosis: EDEMA[ICD9: 782.3] Diagnosis: Right knee pain[ICD9: 719.46] Rkia Motta MD, [facility] CPT-4: 24078 03/25/2014 ([id number]) 20297 EST. PATIENT, LEVEL IV Diagnosis: Blister of leg[ICD9: 916.2] Diagnosis: EDEMA[ICD9: 782.3] Diagnosis: DM W/O COMPLICATION TYPE II, UNCONTROLLED[ICD9: 250.02] Diagnosis: ESSENTIAL HYPERTENSION[ICD9: 401.9] Rika Motta MD, [facility] CPT-4: 98446 03/03/2014 ([id number]) 95582 EST. PATIENT, LEVEL IV Diagnosis: CELLULITIS OF LEG[ICD9: 682.6] Diagnosis: Diabetes mellitus type 2, uncontrolled[ICD9: 250.02] Diagnosis: ESSENTIAL HYPERTENSION[ICD9: 401.9] Diagnosis: EDEMA[ICD9: 782.3] Tessie Motta MD, [facility] CPT-4: 35527 02/13/2014 ([id number]) 34915 EST. PATIENT, LEVEL IV Diagnosis: Diabetes mellitus type 2, uncontrolled[ICD9: 250.02] Tessie Motta MD, [facility] CPT-4: 32605 01/27/2014 ([id number]) 03819 EST. PATIENT, LEVEL III Diagnosis: OPEN WND KNEE/LEG/ANKLE[ICD9: 891.0] Diagnosis: EDEMA[ICD9: 782.3] Rika Motta MD, [facility] CPT-4: 36981 12/26/2013 ([id number]) 11991 EST. PATIENT, LEVEL III Diagnosis: Cellulitis of right leg[ICD9: 682.6] Diagnosis: OPEN WND KNEE/LEG/ANKLE[ICD9: 891.0] Rika Motta MD, [facility] CPT-4: 34546 12/12/2013 ([id number]) 75337 EST. PATIENT, LEVEL IV Diagnosis: Asthma exacerbation[ICD9: 493.92] Diagnosis: COUGH[ICD9: 786.2] Diagnosis: EDEMA[ICD9: 782.3] Rika Motta MD, [facility] CPT-4: 08230 11/14/2013 ([id number]) 83974 EST. PATIENT, LEVEL III Diagnosis: OPEN WND KNEE/LEG/ANKLE[ICD9: 891.0] Diagnosis: EDEMA[ICD9: 782.3] Rika Motta MD, [facility] CPT-4: 39310 10/21/2013 ([id number]) 88915 EST. PATIENT, LEVEL IV Diagnosis: ESSENTIAL HYPERTENSION[SNOMED: 76544425] Diagnosis: Right knee pain[ICD9: 719.46] Diagnosis: OPEN WND KNEE/LEG/ANKLE[ICD9: 891.0] Rika Motta MD, [facility] CPT-4: 13411 10/03/2013 ([id number]) Miscellaneous no charge Diagnosis: Open wound of leg[ICD9: 891.0] Rika Motta MD, [facility] CPT-4: 83225 09/27/2013 72724 EST. PATIENT, LEVEL II Diagnosis: Open wound of leg[ICD9: 891.0] Diagnosis: Wrist pain, left[ICD9: 719.43] Rika Motta MD, [facility] CPT-4: 44920 09/23/2013 ([id number]) 17244 EST. PATIENT, LEVEL IV Diagnosis: CELLULITIS OF LEG[ICD9: 682.6] Diagnosis: ESSENTIAL HYPERTENSION[SNOMED: 59300356] Diagnosis: EDEMA[ICD9: 782.3] Rika Motta MD, [facility] CPT-4: 75244 09/20/2013 ([id number]) 52525 EST. PATIENT, LEVEL IV Diagnosis: Open wound of right lower leg[ICD9: 891.0] Diagnosis: DM W/O COMPLICATION TYPE II, UNCONTROLLED[SNOMED: 59091032] Diagnosis: Edema[ICD9: 782.3] Rika Motta MD, [facility] CPT-4: 90723 09/10/2013 ([id number]) 23318 EST. PATIENT, LEVEL III Diagnosis: DM W/O COMPLICATION TYPE II, UNCONTROLLED[SNOMED: 68600042] Diagnosis: EDEMA[ICD9: 782.3] Tessie Motta MD, [facility] CPT-4: 43546 08/19/2013 ([id number]) 20063 EST. PATIENT, LEVEL IV Diagnosis: EDEMA[ICD9: 782.3] Diagnosis: DIABETES TYPE II[SNOMED: 640369515] Diagnosis: HYPOTHYROIDISM[ICD9: 244.9] Diagnosis: LUMBAGO[ICD9: 724.2] Diagnosis: SCIATICA[ICD9: 724.3] Tessie Motta MD, [facility] CPT-4: 06580 08/12/2013 ([id number]) 51585 EST. PATIENT, LEVEL IV Diagnosis: DIABETES TYPE II[SNOMED: 835711073] Diagnosis: EDEMA[ICD9: 782.3] Diagnosis: HYPOTHYROIDISM[ICD9: 244.9] Diagnosis: Encounter for long-term (current) use of other medications[ICD9: V58.69] Diagnosis: LUMBAGO[ICD9: 724.2] Rika Motta MD, [facility] CPT-4: 07840 08/01/2013 ([id number]) 41599 EST. PATIENT, LEVEL III Diagnosis: Blister of right foot[ICD9: 917.2] Rika Motta MD [facility] CPT-4: 33548 07/19/2013 ([id number]) 84189 EST. PATIENT, LEVEL III Diagnosis: Cellulitis of right leg[ICD9: 682.6] Diagnosis: ESSENTIAL HYPERTENSION[SNOMED: 74679639] Diagnosis: EDEMA[ICD9: 782.3] Rika Motta MD [facility] CPT-4: 69147 07/15/2013 ([id number]) 33849 EST. PATIENT, LEVEL IV Diagnosis: DIABETES TYPE II[SNOMED: 407167003] Diagnosis: BACKACHE[ICD9: 724.5] Diagnosis: Muscle spasms of neck[ICD9: 728.85] Tessie Motta MD, [facility] CPT-4: 07388 06/27/2013 ([id number]) 86314 EST. PATIENT, LEVEL IV Diagnosis: DM W/O COMPLICATION TYPE II, UNCONTROLLED[SNOMED: 33434750] Diagnosis: EDEMA[ICD9: 782.3] Diagnosis: OBESITY[ICD9: 278.00] Diagnosis: WHEEZING[ICD9: 786.07] Tessie Motta MD, [facility] CPT-4: 48290 06/10/2013 ([id number]) 15210 EST. PATIENT, LEVEL IV Diagnosis: CHRONIC SINUSITIS[ICD9: 473.9] Diagnosis: WHEEZING[ICD9: 786.07] Diagnosis: ACUTE BRONCHITIS[ICD9: 466.0] Diagnosis: Back pain[ICD9: 724.5] Tessie Motta MD, [facility] CPT-4: 93713 05/07/2013 ([id number]) 68138 EST. PATIENT, LEVEL IV Diagnosis: EDEMA[ICD9: 782.3] Diagnosis: COPD (chronic obstructive pulmonary disease) with acute bronchitis[ ICD9: 491.22] Tessie Motta MD, [facility] CPT-4: 07834 04/16/2013 ([id number]) 62170 EST. PATIENT, LEVEL IV Diagnosis: Lumbago[ICD9: 724.2] Diagnosis: DM W/O COMPLICATION TYPE II, UNCONTROLLED[SNOMED: 97591590] Diagnosis: EDEMA[ICD9: 782.3] Rika Motta MD, [facility] CPT-4: 82467 03/21/2013 ([id number]) 07767 EST. PATIENT, LEVEL IV Diagnosis: Abdominal pain[ICD9: 789.00] Diagnosis: EDEMA[ICD9: 782.3] Diagnosis: DIABETES TYPE II[SNOMED: 232246551] Tessie Motta MD, [facility] CPT-4: 57839 02/12/2013 ([id number]) 67755 EST. PATIENT, LEVEL III Diagnosis: EDEMA[ICD9: 782.3] Diagnosis: RESPIRATORY ABNORM NEC[ICD9: 786.09] Tessie Motta MD, [facility] CPT-4: 80445 02/04/2013 ([id number]) 24131 EST. PATIENT, LEVEL IV Diagnosis: Edema[ICD9: 782.3] Diagnosis: ESSENTIAL HYPERTENSION[SNOMED: 44174737] Tessie Motta MD, [facility] CPT-4: 33491 01/17/2013 ([id number]) 26893 EST. PATIENT, LEVEL IV Diagnosis: ESSENTIAL HYPERTENSION[SNOMED: 31160497] Diagnosis: Diabetic leg ulcer[ICD9: 250.80] Diagnosis: Callus[ICD9: 700] Diagnosis: Urinary urgency[ICD9: 788.63] Diagnosis: HYPOTHYROIDISM[ICD9: 244.9] Rika Motta MD, [facility] CPT-4: 44262 12/31/2012 ([id number]) 69523 EST. PATIENT, LEVEL IV Diagnosis: Cellulitis of left leg[ICD9: 682.6] Diagnosis: DIABETES TYPE II[SNOMED: 732129550] Diagnosis: ESSENTIAL HYPERTENSION[SNOMED: 58110308] Diagnosis: EDEMA[ICD9: 782.3] Rika Motta MD, [facility] CPT-4: 79288 12/20/2012 ([id number]) 10856 EST. PATIENT, LEVEL III Diagnosis: Acute bronchitis[ICD9: 466.0] Diagnosis: COUGH[ICD9: 786.2] Tessie Motta MD [facility] CPT-4: 87221 10/29/2012 ([id number]) 07916 EST. PATIENT, LEVEL IV Diagnosis: ESSENTIAL HYPERTENSION[SNOMED: 03557660] Diagnosis: DIABETES TYPE II[SNOMED: 787281710] Diagnosis: HYPOTHYROIDISM[ICD9: 244.9] Tessie Motta MD [facility] CPT- 4: 06764 09/06/2012 ([id number]) 74586 EST. PATIENT, LEVEL IV Diagnosis: DIABETES TYPE II[SNOMED: 003349019] Diagnosis: ESSENTIAL HYPERTENSION[SNOMED: 20970512] Diagnosis: Diarrhea[ICD9: 787.91] Tessie Motta MD [facility] CPT-4: 71244 08/23/2012 ([id number]) 33295 EST. PATIENT, LEVEL III Diagnosis: ESSENTIAL HYPERTENSION[SNOMED: 93036615] Diagnosis: Gastroenteritis[ICD9: 558.9] Rika Motta MD [facility] CPT-4: 94829 08/13/2012 ([id number]) 48962 EST. PATIENT, LEVEL IV Diagnosis: Diarrhea[ICD9: 787.91] Diagnosis: ESSENTIAL HYPERTENSION[SNOMED: 26000856] Diagnosis: DM W/O COMPLICATION TYPE II, UNCONTROLLED[SNOMED: 07821392] Rika Motta MD [facility] CPT-4: 68220 08/07/2012 ([id number]) 75092 EST. PATIENT, LEVEL III Diagnosis: Acute sinusitis[ICD9: 461.9] Diagnosis: Thrush[ICD9: 112.0] Rika Motta MD [facility] CPT-4: 69181 07/06/2012 ([id number]) 27486 EST. PATIENT, LEVEL IV Diagnosis: ESSENTIAL HYPERTENSION[SNOMED: 89228877] Diagnosis: DIABETES TYPE II[SNOMED: 765761167] Tessie Motta MD [facility] CPT-4: 80123 06/07/2012 ([id number]) 37118 EST. PATIENT, LEVEL IV Diagnosis: ESSENTIAL HYPERTENSION[SNOMED: 34451356] Diagnosis: ACUTE SINUSITIS[ICD9: 461.9] Diagnosis: Labial cyst[ICD9: 624.8] Tessie Motta MD, [facility] CPT-4: 52019 05/28/2012 ([id number]) 39690 EST. PATIENT, LEVEL IV Diagnosis: ESSENTIAL HYPERTENSION[SNOMED: 31792176] Diagnosis: EDEMA[ICD9: 782.3] Tessie Motta MD [facility] CPT-4: 22954 05/17/2012 ([id number]) 14848 EST. PATIENT, LEVEL IV Diagnosis: EDEMA[ICD9: 782.3] Diagnosis: ESSENTIAL HYPERTENSION[SNOMED: 26017834] Diagnosis: Diarrhea[ICD9: 787.91] Diagnosis: ALLERGIC RHINITIS[ICD9: 477.9] Tessie Motta MD [facility] CPT- 4: 99727 05/02/2012 ([id number]) 85151 EST. PATIENT, LEVEL IV Diagnosis: ACUTE SINUSITIS[ICD9: 461.9] Diagnosis: ESSENTIAL HYPERTENSION[SNOMED: 38918388] Diagnosis: ALLERGIC RHINITIS[ICD9: 477.9] Tessie Motta MD [facility] CPT- 4: 40211 04/10/2012 ([id number]) 03479 EST. PATIENT, LEVEL IV Diagnosis: ESSENTIAL HYPERTENSION[SNOMED: 50701590] Diagnosis: Foreign body in foot or toe[ICD9: 917.6] Diagnosis: EDEMA[ICD9: 782.3] Tessie Motta MD [facility] CPT-4: 77833 02/27/2012 ([id number]) 71407 EST. PATIENT, LEVEL IV Diagnosis: CELLULITIS OF FOOT[ICD9: 682.7] Diagnosis: DIABETES TYPE II[SNOMED: 649795212] Diagnosis: EDEMA[ICD9: 782.3] Tessie Motta MD [facility] CPT-4: 80792 02/15/2012 ([id number]) 81859 EST. PATIENT, LEVEL IV Diagnosis: EDEMA[ICD9: 782.3] Diagnosis: ESSENTIAL HYPERTENSION[SNOMED: 49223888] Diagnosis: ACUTE SINUSITIS[ICD9: 461.9] Diagnosis: Dysuria[ICD9: 788.1] Tessie Motta MD [facility] CPT-4: 07236 02/01/2012 ([id number]) 36163 EST. PATIENT, LEVEL IV Diagnosis: DIABETES TYPE II[SNOMED: 783125095] Diagnosis: Diverticulitis[ICD9: 562.11] Tessie Motta MD [facility] CPT- 4: 95257 12/14/2011 ([id number]) 19307 EST. PATIENT, LEVEL IV Diagnosis: Nausea vomiting and diarrhea[ICD9: 787.01] Diagnosis: ESSENTIAL HYPERTENSION[SNOMED: 72618476] Diagnosis: DM W/O COMPLICATION TYPE II, UNCONTROLLED[SNOMED: 44517672] Tessie Motta MD [facility] CPT-4: 70018 11/30/2011 ([id number]) 28601 EST. PATIENT, LEVEL IV Diagnosis: ESSENTIAL HYPERTENSION[SNOMED: 41159385] Diagnosis: DIABETES TYPE II[SNOMED: 007821604] Diagnosis: COUGH[ICD9: 786.2] Tessie Motta MD [facility] CPT-4: 91438 11/17/2011 ([id number]) Patient admitted to the hospital from clinic (NO CHARGE) Diagnosis: Tachycardia[ICD9: 785.0] Diagnosis: Dyspnea[ICD9: 786.09] Diagnosis: Wheezing[ICD9: 786.07] Diagnosis: FALL AGAINST OBJECT[ICD9: E888.1] Diagnosis: ANXIETY STATE[ICD9: 300.00] Diagnosis: ESSENTIAL HYPERTENSION[SNOMED: 60740610] Diagnosis: Chronic depression[ICD9: 311] Diagnosis: Diabetes mellitus type 2, uncontrolled[SNOMED: 33711866] Tessie Motta MD [facility] CPT-4: 56057Q 11/03/2011 ([id number]) 23617 EST. PATIENT, LEVEL IV Diagnosis: DIABETES TYPE II[SNOMED: 743473142] Diagnosis: ANXIETY STATE[ICD9: 300.00] Diagnosis: DEPRESSIVE DISORDER NEC[ICD9: 311] Diagnosis: Ulcer of toe[ICD9: 707.15] Tessie Motta MD [facility] CPT- 4: 35901 10/24/2011 ([id number]) 96549 EST. PATIENT, LEVEL IV Diagnosis: EDEMA[ICD9: 782.3] Diagnosis: ESSENTIAL HYPERTENSION[SNOMED: 56149873] Diagnosis: ANXIETY STATE[ICD9: 300.00] Tessie Motta MD [facility] CPT- 4: 23981 09/26/2011 77494 EST. PATIENT, LEVEL IV Diagnosis: EDEMA[ICD9: 782.3] Diagnosis: ESSENTIAL HYPERTENSION[SNOMED: 89637902] Rika Motta MD, [facility] CPT-4: 57898 09/20/2011 ([id number]) 42333 EST. PATIENT, LEVEL IV Diagnosis: ACUTE SINUSITIS[ICD9: 461.9] Diagnosis: Allergic rhinitis[ICD9: 477.9] Diagnosis: Cough[ICD9: 786.2] Tessie Motta MD, [facility] CPT-4: 31929 09/01/2011 ([id number]) 83942 EST. PATIENT, LEVEL IV Diagnosis: Chronic sinusitis[ICD9: 473.9] Diagnosis: Anxiety, generalized[ICD9: 300.02] Tessie Motta MD, [facility] CPT-4: 15912 08/15/2011 29710 EST. PATIENT, LEVEL IV Diagnosis: ACUTE SINUSITIS[ICD9: 461.9] Diagnosis: Tachycardia[ICD9: 785.0] Diagnosis: Anxiety[ICD9: 300.00] Diagnosis: Dehydration[ICD9: 276.51] Diagnosis: Sciatica[ICD9: 724.3] Tessie Motta MD, [facility] CPT-4: 26769 08/09/2011 72263 EST. PATIENT, LEVEL IV Diagnosis: DIABETES TYPE II[SNOMED: 032313299] Diagnosis: Sciatica[ICD9: 724.3] Diagnosis: Yeast infection[ICD9: 112.9] Tessie Motta MD, [facility] CPT- 4: 28368 08/01/2011 ([id number]) 29466 EST. PATIENT, LEVEL IV Diagnosis: DIABETES TYPE II[SNOMED: 650128780] Diagnosis: ACUTE MAXILLARY SINUSITIS[ICD9: 461.0] Diagnosis: Fibromyalgia[ICD9: 729.1] Tessie Motta MD, [facility] CPT-4: 22993 06/20/2011 00644 EST. PATIENT, LEVEL IV Diagnosis: ESSENTIAL HYPERTENSION[SNOMED: 48740017] Diagnosis: DIABETES TYPE II[SNOMED: 841292532] Diagnosis: ACUTE MAXILLARY SINUSITIS[ICD9: 461.0] Tessie Motta MDVisiQuate [facility] CPT-4: 23840 04/18/2011 Plan of Care Planned Activity Notes [...] assisted living -Ellis is in contact with [facility] -recommend she stay at Ellis's house until she can move into [facility]. 05/21/2018 Appointment: Rika Bello WPtel: [phone] [phone] (15 min) Moderate 05/21/2018 Patient Education: Patient [...] Her cousins were with her at the appt today and they all agreed that she should not be driving and that she needs to be in assisted living. 05/16/2018 Appointment: [phone] [place] (15 min) Moderate 05/16/2018 Patient Education: Patient [...] understanding. 04/27/2018 Appointment: Rika Bello WPtel: [phone] [phone] (30 min) Complex 04/27/2018 Patient Education: Patient Medication Summary Completed 04/27/2018 Appointment: Rika Bello WPtel: [phone] (15 min) Moderate 04/24/2018 Appointment: Nurse Visit [...] and return Monday for removal of IPRO Ldaxjrr-hhsjpylcpz-ad changes in medications-recommend counseling-patient refuses Weakness-patient is deconditioned-refuses PT -recommend patient start walking more 04/10/2018 Appointment: Rika Bello WPtel: [facility]5 [phone] (15 min) Moderate 04/10/2018 Patient Education: Patient Medication Summary Completed 04/10/2018 Appointment: Ar[facility] Skelton [facility]Ptel[facility] ([facility] min) Moderate 03/21/2018 Appointment: Rika Bello WPtel: [phone] (30 min) Complex 03/20/2018 Visit Plan: Hypertension [...] as directed 03/12/2018 Appointment: Rika Bello WPtel: [phone] [phone] [place] (15 min) Moderate 03/12/2018 Patient Education: Patient Medication Summary Completed 03/12/2018 Patient Education: Back Pain Completed 03/12/2018 Appointment: Rika Bello WPtel: [phone] [phone] [place] (30 min) Complex 03/08/2018 Appointment: Lab Draw [...] refill 02/20/2018 Appointment: Rika Bello WPtel: [phone] [phone] [place] (15 min) Moderate 02/20/2018 Patient Education: Patient Medication Summary Completed 02/20/2018 Patient Education: Back Pain Completed 02/20/2018 Patient Education: Patient Medication Summary Completed 02/20/2018 Care Plan: Iron Pending 02/20/2018 Appointment: Rika Bello WPtel: [phone] [phone] [place] (30 min) Complex 02/19/2018 Appointment: Rika Bello WPtel: [phone] [phone] (15 min) Moderate 02/01/2018 Visit Plan: UA negative -no culture indicated 12/14/2017 Appointment: Lab Draw 12/14/2017 Patient Education: Patient Medication Summary Completed 12/14/2017 Visit Plan: Dysuria-urinary incontinence-culture urine HTN- elevated today-monitor at home -follow up with repair manager 11/27/2017 Appointment: Rika Bello WPtel: [phone] [phone] (15 min) Moderate 11/27/2017 Patient Education: Patient [...] Medication Summary Completed 10/27/2017 Care Plan: SCREENINGMAMMOGRAPHYDIGITAL LOINC : 88675-8 Pending 10/27/2017 Appointment: Arlette Skelton WPtel: [phone] [phone] [place] (15 min) Moderate 10/03/2017 Appointment: Arlette Skelton WPtel: [phone] [phone] [place] (15 min) Moderate 10/02/2017 Appointment: Rika Bello WPtel: [phone] [phone] [place] (30 min) Complex 09/29/2017 Visit Plan: [...] acutely worsened. 09/27/2017 Appointment: [phone] [place] (30 min) Complex 09/27/2017 Patient Education: Patient Medication Summary Completed 09/27/2017 Care Plan: CT HEAD/BRAIN W/O DYE LOINC : 93553-5 Pending 09/27/2017 Visit Plan: DM-patient noncompliant with [...] over- medication. 09/15/2017 Appointment: Rika Bello WPtel: [phone] (30 min) Complex 09/15/2017 Patient Education: Patient Medication Summary Completed 09/15/2017 Appointment: Riak Bello WPtel: [phone] (30 min) Complex 09/12/2017 Appointment: Rika Bello WPtel: [phone] (30 min) Complex 09/07/2017 Visit Plan: Nwy-ppyauivcjy-sf changes Anemia-check cbc today Dental infection-on clindamycin per Dr Bryant-start probiotics Also needs to monitor blood sugars closely 08/18/2017 Appointment: Rika Bello WPtel: [facility]4 [phone] (30 min) Complex 08/18/2017 Patient Education: Patient [...] resolve 08/03/2017 Appointment: Rika Bello WPtel: [phone] [phone] (30 min) Complex 08/03/2017 Patient Education: Patient Medication Summary Completed [...] symptoms worsen 07/27/2017 [phone] ([facility] min) Complex 07/27/2017 Patient Education: [...] in medications 06/13/2017 Appointment: Tessie Motta WPtel: [phone] [phone] (15 min) Moderate 06/13/2017 Patient Education: Patient Medication Summary Completed 06/13/2017 Visit Plan: Dental abscess - will send RX - pt is to keep her appointment with her dentist - pt is to notify clinic if symptoms do not improve, if they worsen, or with any other acute changes, questions, or concerns. 04/21/2017 Appointment: Arlette Skelton WPtel: [phone] [phone] (30 min) Complex 04/21/2017 Patient Education: Patient [...] Q HS RESCHEDULE APPT WITH DR YANNA HoAoqbebpnb-zkvnhfcdy-zu for bactroban ointment provided and instructed on use JCY-iauvnlwbsb-ad change in medications Mildly elevated liver enzymes-discussed with Dr motta-suspect due to gabapentin-will monitor levels Gait instability-again recommend patient use walker as well as PT 04/18/2017 Appointment: Rika Bello WPtel: [address] [place] [address] (30 min) Complex 04/18/2017 Patient Education: Patient [...] become less controlled. Low potassium- check labs SUY-nmiogptrff-gl changes Afib-check digoxin level with labs Abdominal [...] become less controlled. Low potassium- check labs NNW-gxeyxekszt-fo changes Afib-check digoxin level with labs Abdominal pain-refill levsin for prn use -call if pain uncontrolled 03/27/2017 Appointment: Rika Bello WPtel: [address] [place] [address] (30 min) Complex 03/27/2017 Patient Education: Patient Medication Summary Completed 03/27/2017 Appointment: Rika Bello WPtel: [address] [place] [address] (30 min) Complex 03/24/2017 Visit Plan: Hypertension - well controlled - continue with current medications, continue with no added salt diet. Pt has been encouraged to exercise daily. The pt has been advised to call the office if there are any acute concerns about change in blood pressure readings at home. DM-uncontrolled- discussed strict diet and exercise with patient Low epdlyyhil-hdrdqife-zthmobbr to monitor Abd yest-ukcvpikc-xf changes 02/27/2017 Appointment: Rika Bello WPtel: [address] [place], [place] [phone] [place] [address] (30 min) Complex 02/27/2017 Patient Education: Patient [...] this regimen. 02/21/2017 Appointment: Rika Bello WPtel: [facility] [place] [address] (30 min) Complex 02/21/2017 Patient Education: Patient Medication Summary Completed 02/21/2017 Appointment: Rika Bello WPtel: [address] [place], [place] [phone] (30 min) Complex 02/20/2017 Visit Plan: Generalized [...] labs on Monday02/17/2017 Appointment: Rika Bello WPtel: [facility]0 [phone] (30 min) Complex 02/17/2017 Patient Education: Patient Medication Summary Completed 02/17/2017 Visit Plan: COPD-recent hospitalization with pneumonia- symptoms improved-discussed continuous oxygen use at home-appt with Dr Odonnell tomorrow Afib-check digoxin level-patient just finished zpack Diarrhea-continue probiotics-check stool if diarrhea persists DM-bring log to next appt 02/13/2017 Appointment: Rika Bello WPtel: [address] [place], [place] [phone] (30 min) Complex 02/13/2017 Patient Education: Patient Medication Summary Completed 02/13/2017 Patient Education: Hypertension Completed 02/13/2017 Visit Plan: DM-very uncontrolled-refer to Dr Raines for management RIght shoulder and arm pain-fell 5 days ago-xray shoulder and arm Chronic sinusitis-RX for Dr Kim compound gentamicin nasal spray 01/30/2017 Appointment: Rika Bello WPtel: [address] [place], [place] [phone] (30 min) Complex 01/30/2017 Patient Education: Patient Medication Summary Completed 01/30/2017 Care Plan: Referral Order SNOMED-CT : 540440861 Pending 01/30/2017 Visit Plan: Hypertension - well [...] every night DM-check Hgb A1C Hypothyroidism-check level Lgciatz-xazegatuiq-yoy well controlled- increase cymbalta-recommend counseling 01/16/2017 Appointment: Rika Bello WPtel: [address] [place], [place] [phone] (30 min) Complex 01/16/2017 Patient Education: Patient Medication Summary Completed 01/16/2017 Appointment: Rika Bello WPtel: [facility]0 [phone] (30 min) Complex 01/10/2017 Visit Plan: Sinusitis [...] acute changes, questions or concerns. 12/13/2016 Appointment: Costa Arlette [facility]el[phone] (30 min) Complex 12/13/2016 Patient Education: Patient Medication Summary Completed [...] completely heal. 11/11/2016 Appointment: Rika Bello WPtel: [address] [place], [place] [phone] (30 min) Complex 11/11/2016 Patient Education: Patient Medication Summary Completed 11/11/2016 Care Plan: BMI Above normal followup SELF-MGMT EDUC & TRAIN 1 PT Pending 2016 Appointment: Rika Bello WPtel: [address] [place], [place] [phone] [place] (30 min) Complex 11/08/2016 Visit Plan: Shingles-rash scabbed-no further treatment indicated-patient to call if pain uncontrolled N/V-check labs including UA DM- check labs today Thrush-RX for nystatin 10/28/2016 Appointment: Rika Bello WPtel: [address] [place], [place] [phone] (30 min) Complex 10/28/2016 Patient Education: Patient Medication Summary Completed 10/28/2016 Patient Education: Obesity Completed 10/28/2016 Appointment: Rika Bello WPtel: [address] [place], [place] [phone] [place] (30 min) Complex 10/25/2016 Appointment: Lab Draw 10/21/2016 Patient Education: Patient Medication Summary Completed 10/21/2016 Visit Plan: Right knee pain-patient to schedule appt with Dr Allison Garcia-right arm-concerned for shingles-RX for acyclovir provided and instructed on use-call if symptoms do not resolve or if any worse. 10/13/2016 Appointment: Rika Bello WPtel: [address] [place], [place] [phone] [place] (30 min) Complex 10/13/2016 Patient Education: Patient Medication Summary Completed 10/13/2016 Appointment: Rika Bello WPtel: [address] [place], [place] [phone] [place] (30 min) Complex 10/11/2016 Appointment: R[facility]Ptel[phone] [facility] - Annual Wellness Visit 10/04/2016 [...] as directed. 09/23/2016 Appointment: Rika Bello WPtel[phone] (15 min) Moderate 09/23/2016 Patient Education: Patient [...] 09/13/2016 Care Plan: Referral Order SNOMED-CT : [id number] Pending 09/13/2016 Appointment: Ace Rika WPtel: [phone] [phone] (30 min) Complex 09/09/2016 Appointment: AceRika WPtel: [phone] [phone] (30 min) Complex 09/08/2016 Visit Plan: Hypertension [...] Anemia-check CBC 08/09/2016 Appointment: Rika Bello WPtel: [phone] [phone] (30 min) Complex 08/09/2016 Patient Education: Patient [...] control. Yeast infection -rx for nystatin powder AJNT-igzccamrj-dqyogi pneumonia -afib-patient is oxygen dependent due to severely compromised pulmonary and cardiac systems-will send orders to [facility] to continue oxygen 07/26/2016 Visit Plan: [...] control. Yeast infection -rx for nystatin powder DRIB-pfrdxrjcw-eqlfgp pneumonia -afib-patient is oxygen dependent due to severely compromised pulmonary and cardiac systems-will send orders to [facility] to continue oxygen 07/26/2016 Visit Plan: [...] control. Yeast infection -rx for nystatin powder NFZZ-ydrsxkmij-fnczgk pneumonia -afib-patient is oxygen dependent due to severely compromised pulmonary and cardiac systems-will send orders to [facility] to continue oxygen 07/26/2016 Appointment: Rika Bello WPtel: [phone] [phone] [place] (30 min) Complex 07/26/2016 Patient Education: Patient Medication Summary Completed 07/26/2016 Appointment: Rika Bello [facility]Ptel: [phone] [place] (30 min) Complex 07/22/2016 Appointment: Rika Bello WPtel: [phone] [phone] [place] (30 min) Complex 07/18/2016 Appointment: Rika Bello WPtel: [facility] [phone] [place] (30 min) Complex 07/01/2016 Appointment: Lab Draw 06/24/2016 Patient Education: Patient Medication Summary Completed 06/24/2016 Appointment: Rika Bello WPtel: [facility] [phone] [place] (30 min) Complex 2016 Visit Plan: Diabetes [...] Patient Education: Obesity Completed 05/24/2016 Appointment: Rika Blelo WPtel: [phone] (30 min) Complex 05/17/2016 Visit Plan: [...] control. 04/19/2016 Appointment: Rika Bello WPtel: [phone] (30 min) Complex 04/19/2016 Patient Education: Patient Medication Summary Completed 04/19/2016 Patient Education: Obesity Completed 04/19/2016 Appointment: Rika Bello WPtel: [phone] (30 min) Complex 04/18/2016 Visit Plan: Diabetes [...] to allow for greater blood glucose control. UDT-stulhapjbo-wg changes in medications at this time. Dysuria-UA negative-needs pelvic exam due to pt c/o vaginal discharge 04/11/2016 Appointment: Rika Bello WPtel: [facility]1 [facility] [place] [address] (30 min) Complex 04/11/2016 Patient Education: Patient Medication Summary Completed 04/11/2016 Patient Education: Obesity Completed 04/11/2016 Appointment: Rika Bello WPtel: [facility]5 [facility] [place] [address] (30 min) Complex 04/08/2016 Visit Plan: Chronic [...] peripheral edema. 03/11/2016 Appointment: Rika Bello WPtel: [address] [place], [place] [phone] (30 min) [facility] 03/11/2016 Patient Education: Patient Medication Summary Completed [...] on use 02/26/2016 Appointment: Rika Bello WPtel: [phone] [place] (30 min) Complex 02/26/2016 Patient Education: Patient Medication Summary Completed 02/26/2016 Appointment: Rika Bello WPtel: [facility]5 [phone] [place] (30 min) Complex 02/25/2016 Appointment: Rika Bello WPtel: [facility]5 [phone] [place] (30 min) Complex 02/23/2016 Appointment: Lab [...] to mold 02/02/2016 Appointment: Rika Bello WPtel: [facility]5 [phone] [place] (30 min) Complex 02/02/2016 Patient Education: Patient Medication Summary Completed 02/02/2016 Appointment: Tessie Motta WPtel: [facility] (15 min) Moderate 01/21/2016 Appointment: Rika Bello WPtel: [address] [place], [place] [phone] [place] (30 min) Complex 01/14/2016 Visit Plan: [...] Patient Medication Summary Completed 12/17/2015 Visit Plan: Kufmpnl-pdnxficla-oshh head injury on 12/05-did not go to ER-patient sent for STAT CT scan of head-schedule appt with Dr Dyer Adrenal insufficiency-patient suddenly stopped prednisone-instructed patient to restart and taper prednisone as directed Rib uugy-ucfng-nihpgv fall-xray ribs 12/08/2015 Appointment: Rika Bello WPtel: [phone] [phone] [place] (15 min) Moderate 12/08/2015 Appointment: Rika Bello WPtel: [phone] [place] (30 min) Complex 12/08/2015 Patient Education: Patient Medication Summary Completed 12/08/2015 Care Plan: COMPLETE CBC AUTOMATED LOINC : 83419-0 Pending 12/08/2015 Visit Plan: Hypertension - well [...] pt was given a script for a long term care administrator prednisone taper - pt has not started [...] will refer to Dr. Mejia 10/27/2015 Appointment: Rika Bello WPtel: [address] [place] [address] (30 min) Complex 10/27/2015 Patient Education: Patient Medication Summary Completed 10/27/2015 Patient Education: Obesity Completed 10/27/2015 Care Plan: Referral Order SNOMED-CT : 206448151 Pending 10/27/2015 Referral: Matt Pavon HPtel:[phone] Referral Initiated 10/21/2015 Visit Plan: Medicare Exam [...] stomach upset or stomach pain. 09/29/2015 Appointment: Rika Bello WPtel: [facility]3 [phone] MCR - Welcome to Medicare visit 09/29/2015 Patient Education: Patient Medication Summary Completed 09/29/2015 Patient Education: Obesity Completed 09/29/2015 Care Plan: Referral Order SNOMED-CT : [id number] Pending 09/29/2015 Care Plan: BMI Above normal [...] one month for weight check. 08/10/2015 Appointment: UDAY - Welcome to Medicare visit 08/10/2015 Patient [...] min) Complex 05/05/2015 Appointment: Rika Bello WPtel: [address] [place] [phone] (30 min) Complex 04/27/2015 Visit Plan: Cellulitis [...] Completed 03/03/2015 Appointment: Rika Bello WPtel: [phone] [phone] (30 min) Complex 02/24/2015 Appointment: (30 min) Complex 01/29/2015 Appointment: Tessie Motta WPtel: [phone] [place] (15 min) Moderate 01/22/2015 Visit Plan: Blister of right lower leg-fluids removed with #27 gauze needle and compression dressing applied-refer to wound care for evaluation and management-patient is at high risk of developing large ulcer due to diabetes, noncompliance and poor hygiene. Rash right leg-start oral abx and bactroban as directed Emsmo-ldelxivpkuzl-svr markie wraps, elevate leg, and again instructed [...] eating out. 01/01/2015 Appointment: Tessie Motta WPtel: [facility] (15 min) Moderate 01/01/2015 Patient Education: Patient [...] Care Plan: COMPLETE CBC AUTOMATED LOINC : 64380-3 Ordered 11/04/2014 Care Plan: URINALYSIS NONAUTO W/O SCOPE LOINC : 82325-9 Ordered 11/04/2014 Appointment: Follow up 10/07/2014 Visit Plan: Edema - pt has been advised to elevate legs to prevent dependent edema, compression has been recommended to help to naturally decrease peripheral edema. Diuretic use has been discussed and pt has been instructed in appropriate use of such medication as necessary to further attempt to reduce peripheral edema. Rirvjioqlc-llfsxlgh-bb change in treatment- continue compression hose-decrease salt/sodium in diet-call if symptoms worsen or do not resolve Yakwqmuli-ugsbuse-baeymmlp nasonex to twice daily as directed 09/08/2014 [...] they worsen. 06/12/2014 Appointment: Rika Bello WPtel: [phone] Follow up 06/12/2014 Patient Education: Patient Medication Summary Completed 06/12/2014 Patient Education: .Amazing charts Exercise for Sciatica Completed 06/12/2014 Care Plan: COMPLETE CBC AUTOMATED LOINC : 11644-2 Ordered 06/12/2014 Visit Plan: Cellulitis - continue [...] Education: Patient Medication Summary Completed 05/26/2014 Appointment: Tessie Motta WPtel: [phone] Lab Draw 04/21/2014 Patient Education: Patient Medication [...] at home. 02/13/2014 Appointment: Tessie Motta WPtel: 101 [facility] Follow up 02/13/2014 Patient Education: Patient Medication [...] daily. 01/27/2014 Appointment: Tessie Motta WPtel: [phone] Follow up 01/27/2014 Patient Education: Patient Medication Summary Completed 01/27/2014 Appointment: Rika Bello WPtel: [phone] [place] Follow up 01/02/2014 Visit Plan: Open wound of xrm-ygzgsrnr-snmvnuts with dressing changes as directed-call for increase [...] Summary Completed 12/26/2013 Appointment: Tessie Motta WPtel: [facility]5 [facility] Follow up 12/24/2013 Visit Plan: Open wound of right leg-debrided today in the office-instructed on wound care-follow up as directed. Call with any questions, concerns, or worsening symptoms. Culture of wound today in the office-RX for abx sent to patient's pharmacy and instructed on use. Patient verbalized understanding of plan. 12/12/2013 Appointment: Rika Bello WPtel: [facility]5 [phone] Other 12/12/2013 Patient Education: Patient Medication Summary Completed 12/12/2013 Appointment: Tessie Motta WPtel: [address] [place], [place] [phone] Follow up 11/20/2013 Visit Plan: negative ua 11/18/2013 Appointment: Tessie Motta WPtel: [address] [place], [place] [phone] Lab Draw 11/18/2013 Patient Education: Patient Medication [...] attempt to reduce peripheral edema. 11/14/2013 Appointment: [facility] 11/14/2013 Patient Education: Patient Medication Summary Completed 11/14/2013 Visit Plan: Open wound right xse-fvswhr-zmdn if opens up Edema - pt has been advised to elevate legs to prevent dependent edema, compression has been recommended to help to naturally decrease peripheral edema. Diuretic use has been discussed and pt has been instructed in appropriate use of such medication as necessary to further attempt to reduce peripheral edema. 10/21/2013 Appointment: Rika Bello WPtel: [facility]5 [phone] Follow up 10/21/2013 Patient Education: Patient Medication Summary Completed 10/21/2013 Appointment: Rika Bello WPtel: [address] [place], [place] [phone] Follow up 10/17/2013 Appointment: Tessie Motta WPtel: [address] [place], [place] [phone] Follow up 10/10/2013 Visit Plan: Hypertension - [...] for pain. 10/03/2013 Appointment: Rika Bello WPtel: [facility]5 [phone] Follow up 10/03/2013 Patient Education: Patient Medication [...] of plan. 09/23/2013 Appointment: Tessie Motta WPtel: [facility]5 [facility] [place] Nurse Visit 09/23/2013 Patient Education: Patient [...] 2 WEEKS. 09/20/2013 Appointment: Rika Bello WPtel: [phone] [place] Follow up 09/20/2013 Patient Education: Patient Medication Summary Completed 09/20/2013 Patient Education: Hypertension Completed 09/20/2013 Appointment: Tessie Motta WPtel: [facility] [place] Follow up 09/16/2013 Visit Plan: Edema - [...] verbalized understanding. 09/10/2013 Appointment: Rika Bello WPtel: [facility] Other 09/10/2013 Patient Education: Patient Medication Summary Completed 09/10/2013 Appointment: Rika Bello WPtel: [address] Follow up 09/02/2013 Visit Plan: Diabetes Mellitus [...] peripheral edema. 08/19/2013 Appointment: Rika Bello WPtel: [facility]3 [place] [address] [place] Other 08/19/2013 Patient Education: Patient Medication Summary [...] as scheduled 08/01/2013 Appointment: Rika Bello WPtel: [phone] [place] Follow up 08/01/2013 Patient Education: Patient Medication Summary Completed 08/01/2013 Appointment: Rika Bello WPtel: [phone] [place] Follow up 07/25/2013 Appointment: Tessie Motta WPtel: [facility] [place] Follow up 07/25/2013 Visit Plan: Bister of foot-dressing changes discussed with patient and instructed her to keep her foot clean and dry-STOP WEARING FLIP FLOPS as they are causing friction over blistered area. Keep follow up appointment as scheduled. Call for redness, drainage or other s/s of infection. 07/19/2013 Appointment: Rika Bello WPtel: [address] [place] [address] Other 07/19/2013 Patient Education: Patient Medication Summary [...] peripheral edema. 07/15/2013 Appointment: Rika Bello WPtel: [address] [place] [address] Other 07/15/2013 Patient Education: Patient Medication Summary Completed 07/15/2013 Patient Education: Hypertension Completed 07/15/2013 Appointment: Rika Bello WPtel: [address] [place], [place] [phone] Follow up 07/01/2013 Appointment: Rika Bellotel: [address] [place], [place] [phone] [place] Lab Draw 06/28/2013 Patient Education: Patient [...] 900mg tid. 06/27/2013 Appointment: Tessie Motta WPtel: 1011 [facility] Other 06/27/2013 Patient Education: Patient Medication Summary Completed 06/27/2013 Appointment: Tessie Motta WPtel: 1015 [facility] Other 06/24/2013 Visit Plan: Diabetes Mellitus [...] THE AFTERNOON. 06/10/2013 Appointment: Tessie Motta WPtel: 1017 [facility] Follow up 06/10/2013 Patient Education: Patient Medication Summary Completed 06/10/2013 Appointment: Tessie Motta WPtel: 1015 [facility] Follow up 06/06/2013 Visit Plan: Sinusitis [...] acutely worsen. 05/07/2013 Appointment: Tessie Motta WPtel: 1015 [facility] Follow up 05/07/2013 Patient Education: Patient Medication Summary Completed 05/07/2013 Appointment: Tessie Motta WPtel: 1015 [facility] Follow up 04/30/2013 Visit Plan: Edema [...] stable, monitor for acute changes. 04/16/2013 Appointment: Bing Mottay WPtel: [address] [place], [place] [phone] Follow up 04/16/2013 Patient Education: Patient Medication Summary Completed 04/16/2013 Appointment: Tessie Motta WPtel: [facility]5 [facility] Follow up 04/04/2013 Visit Plan: Lumbago-continue [...] peripheral edema. 03/21/2013 Appointment: Rika Bello WPtel: [address] [place], [place] [phone] Follow up 03/21/2013 Patient Education: Patient Medication Summary Completed 03/21/2013 Appointment: Tessie Motta WPtel: [facility]5 [facility] Follow up 03/20/2013 Appointment: Tessie Motta WPtel: [address] [place], [place] [phone] Follow up 03/05/2013 Visit Plan: Edema-significantly improved- [...] less controlled. 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 for further evaluation and work-up. 02/04/2013 Appointment: Tessie Motta WPtel: [address] [place] [address] Follow up 02/04/2013 Patient Education: Patient Medication [...] not improve. 01/17/2013 Appointment: Rika Bello WPtel: [address] [place], [place] [phone] Follow up 01/17/2013 Patient Education: Patient Medication Summary Completed 01/17/2013 Patient Education: Hypertension Completed 01/17/2013 Appointment: Tessie Motta WPtel: [address] [place], [place] [phone] Follow up 01/16/2013 Appointment: Tessie Motta WPtel: [address] [place] [address] Follow up 01/10/2013 Appointment: Rika Bello WPtel: [address] [place], [place] [phone] Lab Draw 01/01/2013 Patient Education: Patient Medication [...] Hypothyroidism-check labs 12/31/2012 Appointment: Rika Bello WPtel: [facility]5 [phone] Follow up 12/31/2012 Appointment: Rika Bello WPtel: [address] [place], [place] [phone] Sick 12/31/2012 Patient Education: Patient Medication Summary [...] Check labs. 12/20/2012 Appointment: Rika Bello WPtel: [address] [place] [address] Sick 12/20/2012 Patient Education: Patient Medication Summary Completed 12/20/2012 Patient Education: Hypertension Completed 12/20/2012 Appointment: Tessie Motta WPtel: [address] [place] [address] Lab Draw 11/05/2012 Patient Education: Patient Medication Summary Completed 11/05/2012 Visit Plan: Bronchitis - acute case of bronchitis identified. Pt has been given antibiotics, breathing treatments as appropriate, and pt has been instructed to call if symptoms are not improved, or if symptoms acutely worsen. 10/29/2012 Appointment: Tessie Motta WPtel: [address] [place], [place] [phone] Sick 10/29/2012 Patient Education: Patient Medication Summary Completed 10/29/2012 Visit Plan: Joint Injection-left SI joint - Pt was given post - injection instructions. The pt has been advised to use antiinflammatories post injection today, ice to the injected site, call if redness, warmth, or increased pain occurs at the site of injection. 09/21/2012 Appointment: Rika Bello WPtel: [address] [place], [place] [phone] Follow up 09/21/2012 Patient Education: Patient Medication [...] of control. 09/06/2012 Appointment: Tessie Motta WPtel: [phone] [facility] Follow up 09/06/2012 Patient Education: Patient Medication [...] readings are starting to become less controlled. Agghzgqc-uwlslixs-yepoquvi probiotic-continue to hold metformin and repeat labs before appt in 2 weeks. Call for abd pain, worsening diarrhea, or other concerns. 08/23/2012 Appointment: Tessie Motta WPtel: [phone] Follow up 08/23/2012 Patient Education: Patient Medication [...] OF PLAN. 08/13/2012 Appointment: Rika Bello WPtel: [facility]5 [phone] Follow up 08/13/2012 Patient Education: Patient Medication [...] to call for acute concerns. 08/07/2012 Appointment: iRka Bello WPtel: [phone] [phone] [place] Other 08/07/2012 Patient Education: Patient Medication Summary Completed 08/07/2012 Patient Education: Hypertension Completed 08/07/2012 Visit Plan: UA-sent for culture 07/19/2012 Appointment: Rika Bello WPtel: [facility]6 [phone] [place] Lab Draw 07/19/2012 Patient Education: Patient Medication [...] as directed 07/06/2012 Appointment: Rika Bello WPtel: [phone] [phone] [place] [address] 07/06/2012 Patient Education: Patient Medication Summary Completed [...] given today 06/07/2012 Appointment: Tessie Motta WPtel: [facility]5 [facility] Follow up 06/07/2012 Appointment: Tessie Motta WPtel: [address] [place], [place] [id number] [place] Follow up 06/07/2012 Patient Education: Patient [...] 10 days. 05/28/2012 [facility]ment[phone] Follow up 05/28/2012 Patient Education: Patient Medication [...] peripheral edema. 05/17/2012 Appointment: [phone] [facility] Follow UP 05/17/2012 Patient Education: Patient Medication [...] the office 05/02/2012 Appointment: Tessie Motta WPtel: [facility] Follow up 05/02/2012 Patient Education: Patient Medication Summary Completed 05/02/2012 Patient Education: Hypertension Completed 05/02/2012 Appointment: Tessie Motta WPtel: [facility] Follow up 04/25/2012 Visit Plan: Sinusitis - [...] acute concerns. 04/10/2012 Appointment: Rika Bello WPtel: [phone] [facility] [place] [address] Follow up 04/10/2012 Patient Education: Patient Medication [...] on Monday02/27/2012 Appointment: Rika Bello WPtel: [phone] [phone] Follow up 02/27/2012 Patient Education: Patient Medication [...] to thighs. 02/15/2012 Appointment: Rika Bello WPtel: [facility]2 [phone] Follow up 02/15/2012 Patient Education: Patient Medication [...] toes to thighs. RX sent to patient's [facility]. Chest xray at the hospital as [...] of urine. 02/01/2012 Appointment: Rika Bello WPtel: [phone] [phone] Other 02/01/2012 Patient Education: Patient Medication Summary [...] left buttocks 12/14/2011 Appointment: Tessie Motta WPtel: [phone] [facility] [place] Other 12/14/2011 Patient Education: Patient Medication Summary Completed 12/14/2011 Appointment: Tessie Motta WPtel: [phone] [facility] Follow up 12/08/2011 Visit Plan: N/V/D [...] less controlled. 11/30/2011 Appointment: [phone] [phone] [place] Other 11/30/2011 Patient Education: Patient Medication Summary [...] to her chronic back pain. 11/17/2011 Appointment: KaliaBing sry WPtel: [phone] [facility] Other 11/17/2011 Patient Education: Patient Medication Summary [...] - uncontrolled - will consult her primary repair manager for assistance with control her her heart rate. Ulcer of toe - continue with topical antibiotics as previously directed, return to clinic as previously directed, call for acute change in symptoms, worsening redness, warmth, discharge. 11/03/2011 Appointment: ToledoBing sry WPtel: [phone] [facility] Other 11/03/2011 Patient Education: Patient Medication Summary [...] warmth, discharge. 10/24/2011 Appointment: Tessie Motta WPtel: [phone] [facility] [place] Other 10/24/2011 Patient Education: Patient Medication [...] with lymphoma. 09/26/2011 Appointment: R[facility]ello [facility]Ptel[phone] [place] Other 09/26/2011 Patient Education: Patient Medication Summary [...] Hypertension Completed 2011 Appointment: Tessie Motta WPtel: [address] [place] [address] Other 09/05/2011 Visit Plan: Sinusitis - Pt [...] the medication. 09/01/2011 Appointment: Tessie Motta WPtel: [address] [place] [address] Other 09/01/2011 Patient Education: Patient Medication Summary Completed 09/01/2011 Visit Plan: Sinusitis - continue with ciprofloxacin and start on corcidin HBP. Anxiety - start the xanax 0.5mg 1/2 pill twice daily. 08/15/2011 Appointment: Tessie Motta WPtel: [address] [place] [address] Other 08/15/2011 Appointment: Tessie Motta WPtel: [address] [place] [address] Other 08/15/2011 Patient Education: Patient Medication Summary [...] today at the hospital. 08/09/2011 Appointment: Rika Bellol: [address] [place] [address] [place] Other 08/09/2011 Patient Education: Patient Medication Summary [...] symptoms do not resolve 08/01/2011 Appointment: Rika Bellol: [facility]1 [place] [phone] Other 08/01/2011 Patient Education: Patient Medication Summary Completed 08/01/2011 Appointment: Rika Bellol: [facility]4 [address] Other 07/26/2011 Appointment: Tessie Motta WPtel: [phone] [facility]66[facility] Other 07/18/2011 Visit Plan: Diabetes Mellitus - [...] control and symptom management sparingly. 06/20/2011 Appointment: Tessie Motta WPtel: [phone] [facility]66[facility] Other 06/20/2011 Patient Education: Patient Medication Summary [...] 1 month. 04/18/2011 Appointment: Tessie Motta WPtel: [phone] Other 04/18/2011 Patient Education: Patient Medication Summary Completed 04/18/2011 Patient Education: High Blood Pressure: Essential Hypertension Completed 2010 Appointment: Tessie Motta WPtel: [address] [place] [address] Other 04/12/2011 Appointment: Tessie Motta WPtel: [address] [place] [address] Other 02/16/2011 Referral: Matt Pavon HPtel:[phone] Referral Initiated Referral: Yareli Raines Referral Appointment Requested Referral: Raul Shelley Referral Appointment Requested Referral: Mimi Mejia Referral Initiated Instructions Comment . Sinusitis - Pt has acute infection [...] Follow up in the office as directed RICE - Rest Ice Compression (knee brace) [...] cracked toenail - will refer to Dr. Jackie . Hypertension - well controlled - continue [...] allow for greater blood glucose control. INCREASE LEVEMIR TO 25 UNITS TWICE DAILY-IF [...] and understands the consequences of over-medication. . Diabetes Mellitus - controlled - per [...] if symptoms do not show improvement. . Diabetes Mellitus - controlled - per [...] Trigger point injection to left buttocks . Joint Injection-left SI joint - Pt was given post - injection instructions. The pt has been advised to use antiinflammatories post injection today, ice to the injected site, call if redness, warmth, or increased pain occurs at the site of injection. . Bronchitis - will check labs, if [...] if symptoms do not show improvement. . Cellulitis - continue with oral antibiotics as previously directed, return to clinic as previously directed, call for acute change in symptoms, worsening redness, warmth, discharge. Vezqpzzy-cadgdjzmycxr-yeshi labs today-patient has been given orders multiple [...] id annabel to her chronic back pain. Toprol XL increased to 100mg po q [...] to reduce peripheral edema. . Sinusitis - Pt has acute infection [...] are not controlled with the medication. . Headache-slurred speech -frequent falls and hit [...] assisted living -Ellis is in contact with [facility] -recommend she stay at Ellis's house until she can move into [facility]. WOUND CARE EVALUATION KEEP BLISTER CLEAN AND [...] leg-start oral abx and bactroban as directed Norce-zbsqlpadrjdh-caf markie wraps, elevate leg, and again instructed patient to cut back on pop and salty foods. . Hypertension - well controlled - continue [...] and blood glucose levels pneumovac given today . Hypertension - well controlled - continue [...] new nebulizer and supplies due to mold TOUJEO 40 units BID Novolg 10 units [...] daily and taper off as directed . Dental abscess - will send RX - pt is to keep her appointment with her dentist - pt is to notify clinic if symptoms do not improve , if they worsen, or with any other acute changes, questions, or concerns. . Cellulitis - culture of wound today [...] redness, drainage or other s/s of infection. . Cge-jowzlbkgsl-xq changes Anemia-check cbc today Dental infection-on clindamycin per Dr Bryant-start probiotics Also needs to monitor blood sugars closely INCREASE LEVEMIR TO 10 UNITS TWICE DAILY [...] from 600mg tid to 900mg tid. . Hypertension - well controlled - continue with current medications, continue with no added salt diet. Pt has been encouraged to exercise daily. The pt has been advised to call the office if there are any acute concerns about change in blood pressure readings at home. LR-udttkaxswrqf-suobgjxxr strict diet and exercise with patient Low mrqxmhsrj-pmmtnmcx-opcmohxe to monitor Abd zdmn-uilevast-yr changes FOR CHOLESTEROL - THE NEW DOSE OF [...] months based on previous levels of control. INCREASE WATER INTAKE AND PROTEIN INTAKE CUT [...] attempt to reduce peripheral edema. Dysuria-check UA Pt has been instructed to stop eating [...] THE AFTERNOON. . UA-sent for culture . Hypertension - well controlled - continue [...] readings are starting to become less controlled. Pwvfgsub-bhhptddi-yahitzfq probiotic-continue to hold metformin and repeat labs before appt in 2 weeks. Call for abd pain, worsening diarrhea, or other concerns. Labs and UA . Hypertension - well [...] discussed Dr Raines's treatment plan with Mirtha today -recommend they [...] HTN-elevated today-monitor at home -follow up with repair manager . Open wound of qcv-hyejpzee-wnlevvvk with dressing changes as directed-call for increase [...] symptom management sparingly. . Open wound right blo-mlofno-lkmm if opens up Edema - pt has been advised to elevate legs to prevent dependent edema, compression has been recommended to help to naturally decrease peripheral edema. Diuretic use has been discussed and pt has been instructed in appropriate use of such medication as necessary to further attempt to reduce peripheral edema. . Tfkawxi-aazelkhtp-potm head injury on 12/05-did not go to ER-patient sent for STAT CT scan of head-schedule appt with Dr Dyer Adrenal insufficiency-patient suddenly stopped prednisone-instructed patient to restart and taper prednisone as directed Rib xwgj-hktzg-gcowzv fall-xray ribs START CHECKING BLOOD SUGARS!!!! BRING [...] to allow for greater blood glucose control. AYX-guhzlffqio-rn changes in medications at this time. Dysuria-UA [...] for possible injections Rash-under breasts-refill nystatin . Edema - pt has been advised [...] medications as her recently diagnosed with lymphoma. . Open wound of leg-debrided and cleaned [...] - uncontrolled - will consult her primary repair manager for assistance with control her her heart rate. Ulcer of toe - continue with topical antibiotics as previously directed, return to clinic as previously directed, call for acute change in symptoms, worsening redness, warmth, discharge. . Left wrist pain-recent fall-xray left wrist Open wound of right leg-debrided today in the office-instructed on wound care- follow up as directed. Call with any questions, concerns, or worsening symptoms. Patient verbalized understanding of plan. . Edema--recommend patient be admitted for further [...] with results.Patient and verbalized understanding of plan. FUC-siixbswardu-isqsf labs-monitor blood pressure and heart rate closely- recommend ER if symptoms do not improve. . Patient presented with acute symptoms of stroke. Accompanied to ER for emergent evaluation. . Patient presented with acute symptoms of stroke. Accompanied to ER for emergent evaluation. Holter monitor x 48 hours. You will go to the heart center on MONDAY, August 14 at 1:30pm to have it put on. You appt here Monday is at 3:30pm. 1 liter Normal saline IV today at the hospital. Continue your blood pressure medications for the next week-except HOLD LISINOPRIL/HCTZ I sent a prescription for cipro and flagyl to [facility]. Start it today. . Sinusitis - Pt [...] UA DM-check labs today Thrush-RX for nystatin . Diabetes Mellitus - controlled - per [...] for diflucan-call if symptoms do not resolve [place] balm over the counter for the knee. [...] to further attempt to reduce peripheral edema. Xoolrwnaim-grgkmywf-qs change in treatment-continue compression hose-decrease salt/sodium in diet-call if symptoms worsen or do not resolve Hstjkpofw-ibbcaqq-deqnabmx nasonex to twice daily as directed pt [...] Her cousins were with her at the appt today and they all agreed that she should not be driving and that she needs to be in assisted living. . ER follow up - Dr. Motta in to see pt - pt was given a script for a skilled nursing prednisone taper - pt has not started [...] infection Urinary urgency-check UA Hypothyroidism-check labs . Cellulitis - continue with oral antibiotics [...] the xanax 0.5mg 1/2 pill twice daily. . Open wound of right leg-debrided today [...] use at home-appt with Dr Odonnell tomorrow Jeannie-check digoxin level-patient just finished zpack Diarrhea-continue probiotics-check [...] -improved-continue nystatin powder Hypothyroidism-check labs Anemia-check CBC INCREASE LANTUS TO 20 UNITS IN THE [...] Q HS RESCHEDULE APPT WITH DR RAINES Oqlfkruej-txgiwguue-ka for bactroban ointment provided and instructed on use LNE-vxaheqfblp-bf change in medications Mildly elevated liver enzymes-discussed with Dr motta-suspect due to gabapentin-will monitor levels Gait instability-again recommend patient use walker as well as PT . Diabetes Mellitus - Uncontrolled - I [...] up with [facility] as scheduled Monitor you blood sugars as directed at [...] Dyspnea - recommended pt to see new sailing instructor when he gets to [facility] for further evaluation and work-up. refer [...] take 1/2 pill - on 01/02/15 and 5/15 AM and PM take 1/2 pill twice [...] a prescription for lasix and potassium to [facility]. Take 2 TABLETS of LASIX and [...] toes to thighs. RX sent to patient's [facility]. Chest xray at the hospital as [...] to give very small sample of urine. RECOMMEND STOPPING THE POP COMPLETELY STOP EATING [...] indicated . Diabetes Mellitus - Uncontrolled - per [...] control. 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 Diabetes Mellitus [...] control. Yeast infection -rx for nystatin powder FTTF-rdjzldmsa-bytcay nezsghfnf-ucla-pvvkynd is oxygen dependent due to severely compromised pulmonary and cardiac systems-will send orders to [facility] to continue oxygen . Diabetes Mellitus [...] control. Yeast infection -rx for nystatin powder CFZO-lgfyxhles-drlmfj mqhafnhut-rxwp-khcyvnp is oxygen dependent due to severely compromised pulmonary and cardiac systems-will send orders to [facility] to continue oxygen . Diabetes Mellitus [...] and return Monday for removal of IPRO Awroafo-ejlyclhqwg-lf changes in medications-recommend counseling-patient refuses Weakness-patient is [...] your appt with her -she is a water quality specialist . Diabetes Mellitus - ucontrolled- I [...] to become less controlled. Low potassium-check labs ITC-luuqgwxoub-jf changes Afib-check digoxin level with labs Abdominal pain-refill levsin for prn use -call if pain uncontrolled DR Yareli Raines-you need to reschedule your appt with her -she is a water quality specialist . Diabetes Mellitus - ucontrolled- I [...] to become less controlled. Low potassium-check labs PTU-hrvfnftlbo-vj changes Afib-check digoxin level with labs Abdominal [...] FLUIDS. PATIENT AND VERBALIZED UNDERSTANDING OF PLAN. TAKE AN EXTRA 30MG CYMBALTA TO=90MG DAILY CHECK LABS RECOMMEND COUNSELING CALL ABOUT GOING BACK TO PULMONARY REHAB GET APPT WITH PAIN MANAGEMENT FOR INJECTIONS STOP BY [facility] FOR NEW CPAP SUPPLIES . Hypertension - [...] every night DM-check Hgb A1C Hypothyroidism-check level Zrdyjbs-vgopwzrdem-loz well controlled-increase cymbalta-recommend counseling . Diabetes Mellitus - Uncontrolled - per [...] she needs to...RESCHEDULE APPT WITH DR RAINES MGO-djyshyfyya-xh change in medications CPAP NEBULIZER CHECK UA [...]
--- NOTE | 2018-06-04 11:37 | Diagnostic Imaging Report ---
INDICATION: Fall with back pain. TECHNIQUE: Axial imaging through the thoracic and lumbar spine was performed without contrast. Sagittal and coronal reformations were also performed. CT thoracic: Curvature and alignment of thoracic spine is normal. Vertebral body heights are maintained. There is generalized degenerative disc disease with variable disc space narrowing and marginal spurring. Paraspinous tissues are unremarkable. No fractures are seen. Bony canal appears to be patent. IMPRESSION: Thoracic spondylosis. No acute bony abnormality is detected. CT lumbar spine: There is normal curvature and alignment. Vertebral body heights are maintained. No fracture or subluxation is seen. There is generalized lumbar spondylosis with variable disc space narrowing and marginal spurring. There does appear to be some probable spinal stenosis at the L4-L5 level due to ligamentous thickening and facet changes as well as broad-based disc/osteophyte complex. Paraspinous tissues are unremarkable. IMPRESSION: Lumbar spondylosis. No acute bony abnormality is detected. Dictated by: Dictated on workstation # [id number]
--- NOTE | 2018-06-04 11:47 | Diagnostic Imaging Report ---
INDICATION: Passed out and fell. TIME OF EXAM: 11:59 a.m. COMPARISON: Comparison is made with prior chest from 09/20/2017. FINDINGS: The heart is enlarged but stable. Cardiac monitoring device overlies the left chest. There is central congestion noted. No overt failure is seen. No effusion or pneumothorax is detected. IMPRESSION: Cardiomegaly and central congestion. Dictated by: Dictated on workstation # [id number]
--- NOTE | 2018-06-04 11:50 | Diagnostic Imaging Report ---
INDICATION: Fall, right knee pain. TIME OF EXAMINATION: 11:55 a.m. FINDINGS: Three views of the right knee were obtained. There is significant medial and patellofemoral compartmental degenerative change with joint space narrowing and marginal osteophyte formation. Lateral compartment is maintained. Articular surfaces are smooth. No fracture, dislocation or effusion is seen. IMPRESSION: Severe degenerative changes. No acute bony abnormality is detected. Dictated by: Dictated on workstation # [id number]
--- NOTE | 2018-06-04 11:51 | Diagnostic Imaging Report ---
Indication: Fall, pain, lethargy. Findings: The bones are demineralized which increases the risk of fracture and can make nondisplaced injuries radiographically imperceptible. Osteoarthritic changes to the carpometacarpals, metacarpophalangeal and interphalangeal joints are present. No fracture or dislocation however is identified. Impression: Bony demineralization and osteoarthritis. Dictated by: Dictated on workstation # [id number]
--- NOTE | 2018-06-04 11:52 | Diagnostic Imaging Report ---
INDICATION: Syncope, fall, with right wrist pain. AP, oblique, and lateral views of the right wrist are obtained. FINDINGS: No fracture or acute bony abnormality is seen. There is degenerative change of the first carpometacarpal joint as well as of the radiocarpal joint. There is no acute fracture seen. There is some irregularity of the radial styloid which appears to be chronic. IMPRESSION: Degenerative findings. No acute bony abnormality. Dictated by: Dictated on workstation # [id number]
--- NOTE | 2018-06-04 11:52 | Diagnostic Imaging Report ---
CLINICAL INDICATION: Patient fell this morning in bathroom hitting face and head. EXAM: Axial Head CT without IV contrast. Axial Maxillofacial CT scan without IV contrast with sagittal and coronal reformations. Axial CT scan of the cervical spine with sagittal and coronal reformations. COMPARISON: Head CT without contrast dated 05/21/2018. CT scan of the sinuses dated 05/17/2018. X-ray of the cervical spine dated 09/19/2016. FINDINGS: Head CT: There is no evidence of acute cerebral infarct, intracranial hemorrhage, or gross mass effect. The brain parenchymal volume appears appropriate for patient's age. There is no significant change to the patchy areas of low-attenuation white matter changes within both cerebral hemispheres, likely representing chronic small vessel ischemic disease. There is normal edge-white matter distinction. There is no significant midline shift or herniation. There is no evidence of hydrocephalus. The basal cisterns are unremarkable. Maxillofacial and skull CT: There is no skull or maxillofacial fracture. The skull, extracranial soft tissue, and orbits are unremarkable. There is mild ethmoid sinus mucosal thickening and mild mucosal thickening in the nasal cavity. There is near complete resolution of sinus disease involving the frontal sinus, right maxillary sinus, sphenoid sinus. Stable sclerosis of the right mastoid air cells. Otherwise, the temporal bones show no significant abnormality. Cervical spine: There is no acute cervical spine fracture or dislocation. There is markedly hypertrophic anterior spurs flowing osteophytes seen from the C2-T1 levels which can be seen with DISH. There is at least moderate bony neural foramen narrowing involving the left C5-C6 level due to facet arthropathy and uncinate spurs. There is no significant neck soft tissue abnormality. Visualized upper lung oliveira are clear. IMPRESSION: 1: There is no evidence of acute intracranial process. There is no intracranial hemorrhage. 2: There is no skull or maxillofacial fracture. 3: There is no acute cervical spine fracture or dislocation. 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 Dictated by: Dictated on workstation # [id number]
--- OUTSIDE RECORDS SUMMARY | 2018-06-04 12:00 | XMS REPORT | CCD ---
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 Unknown Has never used illegal drugs 02/11/2011 Allergies, Adverse Reactions, Alerts Substance Reaction Codes Entered Date Inactivated Date Status CODEINE RxNorm: 2670 02/11/2011 No Inactive Date Active * NO KNOWN FOOD ALLERGIES Unknown 02/01/2012 No Inactive Date Active cefdinir RxNorm: 10091 08/07/2012 No Inactive Date Active PENICILLINS Unknown [...] Start Date Stop Date Status Fill Instructions Flagyl 500 mg tablet RxNorm: 662177 1 Tablet(s) PO TID 201705/30/2018 Active cefdinir 300 mg capsule RxNorm: 897858 1 Capsule(s) PO BID 05/30/2018 Active Novolog Flexpen U-100 Insulin aspart 100 unit/mL subcutaneous RxNorm: 5658692 10 units with meals plus SSI in comments per dr raines Unit(s) SQ 05/18/2018 No Stop Date Active Novolg 10 units before meals PLUS extra if blood sugar is high. Add 1 u for BG 151-175, 2u for BG 176-200, 3 u for BG 201-225, 4u BG 226-250, 6u for BG 251-275, add 7u for BG 276-300, add 8u 301-325 Touphylliso SoloStar U-300 Insulin 300 unit/mL (1.5 mL) subcutaneous pen RxNorm: 7970410 25 in am and 55 at HS Unit(s) SQ BID per dr raines 05/16/2018 06/14/2018 Active Xanax 0.5 mg tablet RxNorm: 646449 1 Tablet(s) BID as needed 05/16/2018 06/14/2018 Active nystatin 100,000 unit/mL oral suspension RxNorm: 113891 Unit(s) 5 Milliliter(s) PO QID swish and swallow 05/07/20182017 Inactive Tessalon Perles 100 mg capsule RxNorm: 905094 Capsule(s) Capsule(s) 2 Capsule(s) PO TID as needed 05/03/2018 No Stop Date Active Percocet 10 mg-325 mg tablet RxNorm: 3289130 1-2 Tablet(s) PO Q6 PRN 05/03/2018 05/17/2018 Inactive FreeStyle Test strips RxNorm: USE ONE STRIP TO CHECK GLUCOSE 4 TIMES DAILY 04/30/2018 No Stop Date Active promethazine 25 mg tablet RxNorm: 937857 Tablet(s) 1 Tablet(s) PO Q6 PRN TAKE NEEDED ONLY!!! 04/27/2018 No Stop Date Active digoxin 125 mcg tablet RxNorm: 341116 TAKE 1 TABLET BY MOUTH ONCE DAILY 04/23/2018 No Stop Date Active Lasix 40 mg tablet RxNorm: 666460 TAKE 1 TABLET BY MOUTH TWICE DAILY 04/19/2018 No Stop Date Active Vitamin D2 50,000 unit capsule RxNorm: 5992696 1 Capsule(s) PO QW 04/17/2018 06/15/2018 Active Tessalon Perles 100 mg capsule RxNorm: 269614 Capsule(s) Capsule(s) 2 Capsule(s) PO TID as needed 04/17/2018 05/02/2018 Inactive Xanax 0.5 mg tablet RxNorm: 888441 1 Tablet(s) BID as needed 04/09/2018 05/08/2018 Inactive Percocet 10 mg-325 mg tablet RxNorm: 9617446 1-2 Tablet(s) PO Q6 PRN 04/05/2018 04/19/2018 Inactive colestipol 1 gram tablet RxNorm: 5745227 TAKE ONE TABLET BY MOUTH TWICE DAILY 03/30/2018 No Stop Date Active Tessalon Perles 100 mg capsule RxNorm: 418934 Capsule(s) Capsule(s) 2 Capsule(s) PO TID as needed 03/21/2018 04/16/2018 Inactive nystatin 100,000 unit/mL oral suspension RxNorm: 171937 Unit(s) 5 Milliliter(s) PO QID swish and swallow 03/21/20182017 Inactive Xanax 0.5 mg tablet RxNorm: 549617 Tablet(s) BID as needed 04/09/2018 Inactive Slow Fe 47.5 mg iron tablet,extended release RxNorm: 1 Tablet(s) PO every other day 03/12/2018 04/10/2018 Inactive Percocet 10 mg-325 mg tablet RxNorm: 7780629 1-2 Tablet(s) PO Q6 PRN 03/12/2018 03/26/2018 Inactive Slow Fe 47.5 mg iron tablet,extended release RxNorm: 1 Tablet(s) PO 3 x week 02/28/2018 03/11/2018 Inactive promethazine 25 mg tablet RxNorm: 314180 Tablet(s) 1 Tablet(s) PO Q6 PRN TAKE NEEDED ONLY!!! 02/21/2018 04/26/2018 Inactive gabapentin 600 mg tablet RxNorm: 667659 Tablet(s) TAKE ONE & ONE-HALF TABLETS BY MOUTH THREE TIMES DAILY 02/20/20182018 Active Cymbalta 60 mg capsule,delayed release RxNorm: 470243 1 Capsule(s) PO daily take with 30mg tablet 02/20/2018 08/18/2018 Active Cymbalta 30 mg capsule,delayed release RxNorm: 466299 Capsule(s) TAKE ONE CAPSULE BY MOUTH ONCE DAILY - TAKE WITH THE 60 MG DOSE FOR A TOTAL OF 90 MG 02/20/2018 08/18/2018 Active Vitamin D2 50,000 unit capsule RxNorm: 9316013 1 Capsule(s) PO QW 02/20/2018 02/19/2018 Inactive Vitamin D2 50,000 unit capsule RxNorm: 8942772 1 Capsule(s) PO QW 02/20/2018 04/16/2018 Inactive mupirocin 2 % topical ointment RxNorm: 725102 APPLY TO SORE IN BELLY BUTTON TWICE DAILY 02/15/2018 No Stop Date Active Percocet 10 mg-325 mg tablet RxNorm: 1761338 1-2 Tablet(s) PO Q6 PRN 02/14/2018 02/28/2018 Inactive Jerry Marley U-300 Insulin 300 unit/mL (1.5 mL) subcutaneous pen RxNorm: 7623360 40 Unit(s) SQ BID per dr raines 02/07/2018 03/08/2018 Inactive nystatin 100,000 unit/mL oral suspension RxNorm: 076174 5 Milliliter(s) PO QID swish and swallow 02/02/2018 02/11/2018 Inactive mupirocin 2 % topical ointment RxNorm: 586229 1 Application TOP BID 01/30/2018 02/08/2018 Inactive Tessalon Perles 100 mg capsule RxNorm: 125877 Capsule(s) 2 Capsule(s) PO TID as needed 01/23/2018 03/20/2018 Inactive Xanax 0.5 mg tablet RxNorm: 308192 Tablet(s) TAKE ONE TABLET BY MOUTH THREE TIMES DAILY NEEDED 01/17/20182017 Inactive ropinirole 1 mg tablet RxNorm: 736438 1 Tablet(s) PO BID 201705/10/2018 Inactive digoxin 125 mcg tablet RxNorm: 628651 1 Tablet(s) PO daily 04/22/2018 Inactive Percocet 10 mg-325 mg tablet RxNorm: 7525303 1-2 Tablet(s) PO Q6 PRN 01/04/2018 01/18/2018 Inactive Percocet 10 mg-325 mg tablet RxNorm: 8754507 1-2 Tablet(s) PO Q6 PRN 01/02/2018 01/03/2018 Inactive promethazine 25 mg tablet RxNorm: 823572 Tablet(s) 1 Tablet(s) PO Q6 PRN TAKE NEEDED ONLY!!! 01/02/2018 02/20/2018 Inactive pantoprazole 40 mg tablet,delayed release RxNorm: 850850 TAKE 1 TABLET BY MOUTH ONCE DAILY 12/25/2017 No Stop Date Active mupirocin 2 % topical ointment RxNorm: 338762 1 Application TOP BID 12/22/2017 12/31/2017 Inactive fluconazole 150 mg tablet RxNorm: 026283 1 Tablet(s) PO every other day x 3 doses 12/14/2017 12/23/2017 Inactive Percocet 10 mg-325 mg tablet RxNorm: 9093649 1-2 Tablet(s) PO Q6 PRN 12/13/2017 12/27/2017 Inactive hyoscyamine 0.125 mg sublingual tablet RxNorm: 6478089 Tablet(s) 1 Tablet(s) SL TID as needed 12/13/2017 04/11/2018 Inactive nystatin 100,000 unit/gram topical powder RxNorm: 263826 APPLY POWDER TOPICALLY 4 TIMES DAILY 12/11/2017 No Stop Date Active Xanax 0.5 mg tablet RxNorm: 177921 Tablet(s) TAKE ONE TABLET BY MOUTH THREE TIMES DAILY NEEDED 12/06/20172017 Inactive nitrofurantoin 50 mg capsule RxNorm: 247563 1 Capsule(s) PO BID 12/01/2017 11/30/2017 Inactive take probiotic BID x 7 days nitrofurantoin 50 mg capsule RxNorm: 713663 1 Capsule(s) PO BID 12/01/2017 12/07/2017 Inactive take probiotic BID x 7 days mupirocin 2 % topical ointment RxNorm: 918033 1 Application TOP BID 11/27/2017 12/06/2017 Inactive Tessalon Perles 100 mg capsule RxNorm: 766057 Capsule(s) 2 Capsule(s) PO TID as needed 11/21/2017 01/22/2018 Inactive nystatin 100,000 unit/mL oral suspension RxNorm: 834312 5 Milliliter(s) PO QID swish and swallow 11/17/2017 11/26/2017 Inactive nystatin 100,000 unit/mL oral suspension RxNorm: 480225 5 Milliliter(s) PO QID swish and swallow 11/17/2017 11/16/2017 Inactive Toprol XL 100 mg tablet,extended release RxNorm: 752427 TAKE ONE TABLET BY MOUTH TWICE DAILY 11/15/2017 No Stop Date Active ropinirole 1 mg tablet RxNorm: 652752 Tablet(s) BID 11/14/2017 01/10/2018 Inactive Diflucan 150 mg tablet RxNorm: 700048 Tablet(s) every other day 1 Tablet(s) PO every other day 11/14/2017 11/16/2017 Inactive Percocet 10 mg-325 mg tablet RxNorm: 6583350 1-2 Tablet(s) PO Q6 PRN 11/09/2017 11/23/2017 Inactive Flonase Allergy Relief 50 mcg/actuation nasal spray, suspension RxNorm: 6377917 2 [place] NASAL daily 11/06/20172017 Inactive cyclobenzaprine 10 mg tablet RxNorm: 330371 Tablet(s) TABLET(S) 1 TABLET(S) PO NEEDED TAKE 1 TABLET BY MOUTH EVERY 8 HOURS NEEDED 2017 No Stop Date Active Cymbalta 30 mg capsule,delayed release RxNorm: 944815 TAKE ONE CAPSULE BY MOUTH ONCE DAILY - TAKE WITH THE 60 MG DOSE FOR A TOTAL OF 90 MG 02/19/2018 Inactive Lantus Solostar U-100 Insulin 100 unit/mL (3 mL) subcutaneous pen RxNorm: 055447 Unit(s) SQ 35 units QAM and 55 units QHS Unit(s) SQ 10/27/2017 02/07/2018 Inactive Wants insulin pens Percocet 10 mg-325 mg tablet RxNorm: 3941721 1-2 Tablet(s) PO Q6 PRN 10/27/2017 11/08/2017 Inactive promethazine 25 mg tablet RxNorm: 903319 Tablet(s) 1 Tablet(s) PO Q6 PRN TAKE NEEDED ONLY!!! 10/27/2017 01/01/2018 Inactive Xanax 0.5 mg tablet RxNorm: 059599 Tablet(s) TAKE ONE TABLET BY MOUTH THREE TIMES DAILY 10/20/2017 04/08/2018 Inactive Tessalon Perles 100 mg capsule RxNorm: 287406 Capsule(s) 2 Capsule(s) PO TID as needed 10/19/2017 11/20/2017 Inactive Diflucan 150 mg tablet RxNorm: 370603 1 Tablet(s) PO every other day 10/15/2017 11/13/2017 Inactive Percocet 10 mg-325 mg tablet RxNorm: 8561212 1-2 Tablet(s) PO Q6 PRN 10/06/2017 10/20/2017 Inactive pantoprazole 40 mg tablet,delayed release RxNorm: 314230 1 Tablet(s) PO BID 10/03/2017 03/31/2018 Inactive Cymbalta 60 mg capsule,delayed release RxNorm: 879341 TAKE ONE CAPSULE BY MOUTH ONCE DAILY 09/21/2017 02/19/2018 Inactive Diflucan 150 mg tablet RxNorm: 798969 1 Tablet(s) PO every other day 09/15/2017 09/19/2017 Inactive hyoscyamine 0.125 mg sublingual tablet RxNorm: 2972849 1 Tablet(s) SL TID as needed 09/08/2017 12/12/2017 Inactive Lantus Solostar U-100 Insulin 100 unit/mL (3 mL) subcutaneous pen RxNorm: 767680 Unit(s) SQ 35 units QAM and 55 units QHS Unit(s) SQ 09/06/2017 09/20/2017 Inactive Wants insulin pens Lasix 40 mg tablet RxNorm: 237541 TAKE ONE TABLET BY MOUTH TWICE DAILY 08/25/2017 04/18/2018 Inactive ropinirole 1 mg tablet RxNorm: 308076 TAKE ONE TABLET BY MOUTH AT BEDTIME 08/25/2017 11/13/2017 Inactive Lantus U-100 Insulin 100 unit/mL subcutaneous solution RxNorm: 342576 35 units QAM and 55 units QHS Unit(s) SQ 08/21/2017 09/05/2017 Inactive Tessalon Perles 100 mg capsule RxNorm: 882577 Capsule(s) 2 Capsule(s) PO TID as needed 08/18/2017 10/18/2017 Inactive Percocet 10 mg-325 mg tablet RxNorm: 2320770 1-2 Tablet(s) PO Q6 PRN 08/16/2017 08/30/2017 Inactive pantoprazole 40 mg tablet,delayed release RxNorm: 988707 TAKE ONE TABLET BY MOUTH TWICE DAILY 08/14/2017 08/13/2017 Inactive pantoprazole 40 mg tablet,delayed release RxNorm: 707064 1 Tablet(s) PO daily 08/14/2017 10/02/2017 Inactive promethazine 25 mg tablet RxNorm: 683964 Tablet(s) 1 Tablet(s) PO Q6 PRN TAKE NEEDED ONLY!!! 08/11/2017 10/26/2017 Inactive omeprazole 20 mg capsule,delayed release RxNorm: 134645 1 Capsule(s) PO daily TAKE 1 CAPSULE BY MOUTH ONCE DAILY 08/07/2017 10/26/2017 Inactive nystatin 100,000 unit/mL oral suspension RxNorm: 034786 5 Milliliter(s) PO QID swish and swallow 08/07/2017 08/16/2017 Inactive mupirocin 2 % topical ointment RxNorm: 768625 APPLY TO SORE IN BELLY BUTTON TWICE DAILY 08/07/2017 02/14/2018 Inactive omeprazole 20 mg capsule,delayed release RxNorm: 322829 1 Capsule(s) PO BID TAKE 1 CAPSULE BY MOUTH TWICE DAILY 08/03/2017 08/06/2017 Inactive Diflucan 150 mg tablet RxNorm: 137192 1 Tablet(s) PO daily 08/05/2017 Inactive hyoscyamine 0.125 mg sublingual tablet RxNorm: 4950866 1 Tablet(s) SL TID as needed 08/03/2017 09/01/2017 Inactive gentamicin 0.3 % eye drops RxNorm: 086836 2 Drop(s) ophthalmic (eye) TID 08/03/2017 08/09/2017 Inactive Levaquin 500 mg tablet RxNorm: 964806 1 Tablet(s) PO every other day x3 doses 07/27/2017 08/02/2017 Inactive gentamicin 0.3 % eye drops RxNorm: 189394 2 Drop(s) ophthalmic (eye) TID 07/27/2017 08/02/2017 Inactive dicyclomine 10 mg capsule RxNorm: 795250 1 Capsule(s) PO TID 08/02/2017 Inactive Levaquin 500 mg tablet RxNorm: 655180 1 Tablet(s) PO daily 12/201707/26/2017 Inactive Lantus U-100 Insulin 100 unit/mL subcutaneous solution RxNorm: 508279 INJECT 35 UNITS SUBCUTANEOUSLY IN THE MORNING AND 55 UNITS AT BEDTIME 07/24/2017 09/05/2017 Inactive Tessalon Perles 100 mg capsule RxNorm: 258320 2 Capsule(s) PO TID as needed 07/24/2017 08/17/2017 Inactive Percocet 10 mg-325 mg tablet RxNorm: 3107636 1-2 Tablet(s) PO Q6 PRN 07/21/2017 08/04/2017 Inactive promethazine 25 mg tablet RxNorm: 749243 1 Tablet(s) PO Q6 PRN 1 Tablet(s) PO Q6 PRN 07/19/2017 07/26/2017 Inactive Cartia XT 240 mg capsule,extended release RxNorm: 256526 1 Capsule(s) PO daily 06/27/2017 06/21/2018 Active potassium chloride ER 20 mEq tablet,extended release RxNorm: 547006 Tablet(s) TAKE ONE TABLET BY MOUTH ONCE DAILY 06/21/2017 No Stop Date Active Lantus U-100 Insulin 100 unit/mL subcutaneous solution RxNorm: 346003 35 units QAM and 55 units QHS Unit(s) SQ 06/21/2017 07/20/2017 Inactive Please provide 30 day supply Percocet 10 mg-325 mg tablet RxNorm: 9509449 1-2 Tablet(s) PO Q6 PRN 06/21/2017 07/05/2017 Inactive Cartia XT 180 mg capsule,extended release RxNorm: 540220 Capsule(s) BID 06/21/2017 06/26/2017 Inactive Xanax 0.5 mg tablet RxNorm: 905073 Tablet(s) TAKE ONE TABLET BY MOUTH THREE TIMES DAILY 06/21/2017 08/19/2017 Inactive digoxin 125 mcg tablet RxNorm: 631295 1 Tablet(s) PO daily 10/18/2017 Inactive gabapentin 600 mg tablet RxNorm: 749711 Tablet(s) TAKE ONE & ONE-HALF TABLETS BY MOUTH THREE TIMES DAILY 06/21/20172017 Inactive dicyclomine 10 mg capsule RxNorm: 225472 1 Capsule(s) PO TID 07/26/2017 Inactive Lantus U-100 Insulin 100 unit/mL subcutaneous solution RxNorm: 477046 35 units QAM and 55 units QHS Unit(s) SQ 06/13/2017 06/20/2017 Inactive Please provide 30 day supply potassium chloride ER 20 mEq tablet,extended release RxNorm: 600641 TAKE ONE TABLET BY MOUTH ONCE DAILY 06/02/2017 Inactive cyclobenzaprine 10 mg tablet RxNorm: 535590 Tablet(s) TABLET(S) 1 TABLET(S) PO NEEDED TAKE 1 TABLET BY MOUTH EVERY 8 HOURS NEEDED 201711/02/2017 Inactive Tessalon Perles 100 mg capsule RxNorm: 572114 2 Capsule(s) PO TID as needed 06/01/2017 07/23/2017 Inactive promethazine 25 mg tablet RxNorm: 473230 1 Tablet(s) PO Q6 PRN 1 Tablet(s) PO Q6 PRN 05/25/2017 06/01/2017 Inactive gabapentin 600 mg tablet RxNorm: 757959 TAKE ONE & ONE-HALF TABLETS BY MOUTH THREE TIMES DAILY 05/23/2017 06/20/2017 Inactive promethazine 25 mg tablet RxNorm: 828122 1 Tablet(s) PO Q6 PRN 1 Tablet(s) PO Q6 PRN 05/19/2017 05/24/2017 Inactive Flagyl 500 mg tablet RxNorm: 614073 1 Tablet(s) PO TID 201605/26/2017 Inactive Levaquin 500 mg tablet RxNorm: 038016 1 Tablet(s) PO daily 05/16/2017 Inactive Tessalon Perles 100 mg capsule RxNorm: 728286 2 Capsule(s) PO TID as needed 05/17/2017 05/31/2017 Inactive Flagyl 500 mg tablet RxNorm: 026737 1 Tablet(s) PO TID 201605/16/2017 Inactive hyoscyamine 0.125 mg sublingual tablet RxNorm: 7320415 1 Tablet(s) SL TID as needed 05/17/2017 06/12/2017 Inactive Levaquin 500 mg tablet RxNorm: 381600 1 Tablet(s) PO daily 05/23/2017 Inactive Cymbalta 60 mg capsule,delayed release RxNorm: 604882 1 Capsule(s) PO daily take with 30mg tablet 05/16/2017 08/13/2017 Inactive Bentyl 10 mg capsule RxNorm: 911836 1 Capsule(s) PO TID as needed 05/12/2017 06/10/2017 Inactive Levsin 0.125 mg tablet RxNorm: 8646386 1 Tablet(s) PO Q4 PRN 1-2 Tablet(s) PO Q4 PRN 05/11/2017 05/11/2017 Inactive nystatin 100,000 unit/gram topical powder RxNorm: 173105 Gram(s) APPLY POWDER TOPICALLY 4 TIMES DAILY 05/11/20172017 Inactive nystatin 100,000 unit/mL oral suspension RxNorm: 463223 4 Milliliter(s) PO QID swish and swallow 05/10/2017 05/19/2017 Inactive and Monistat over the counter colestipol 1 gram tablet RxNorm: 5520812 TAKE ONE TABLET BY MOUTH TWICE DAILY 05/08/2017 03/29/2018 Inactive Lantus 100 unit/mL subcutaneous solution RxNorm: 216356 30 units QAM and 50 units QHS Unit(s) SQ 04/28/2017 05/27/2017 Inactive Please provide 30 day supply Lantus Solostar 100 unit/mL (3 mL) subcutaneous insulin pen RxNorm: 104309 Unit( s) SQ BID 04/28/2017 06/13/2017 Inactive 30 units q am and 50units at night Lantus 100 unit/mL subcutaneous solution RxNorm: 791008 30 units QAM and 50 units QHS Unit(s) SQ 04/28/2017 04/27/2017 Inactive Please provide 30 day supply Levsin 0.125 mg tablet RxNorm: 3777479 1 Tablet(s) PO Q4 PRN 1-2 Tablet(s) PO Q4 PRN 04/25/2017 05/10/2017 Inactive promethazine 25 mg tablet RxNorm: 155099 1 Tablet(s) PO Q6 PRN 1 Tablet(s) PO Q6 PRN 04/25/2017 05/02/2017 Inactive Toprol XL 100 mg tablet,extended release RxNorm: 216839 TAKE ONE TABLET BY MOUTH TWICE DAILY 04/24/2017 11/14/2017 Inactive Flagyl 500 mg tablet RxNorm: 918704 1 Tablet(s) PO TID 201604/30/2017 Inactive Levaquin 500 mg tablet RxNorm: 298330 1 Tablet(s) PO daily 05/201604/27/2017 Inactive Voltaren 1 % topical gel RxNorm: 334116 4 Gram(s) TOP QID 04/1810/14/2017 Inactive mupirocin 2 % topical ointment RxNorm: 302404 1 Application TOP BID 04/18/2017 04/27/2017 Inactive apply to sore in belly button Lantus Solostar 100 unit/mL (3 mL) subcutaneous insulin pen RxNorm: 274704 Unit( s) SQ BID 04/18/2017 04/27/2017 Inactive 20 units q am and 50units at night levothyroxine 88 mcg tablet RxNorm: 961411 1 Tablet(s) PO daily TAKE ONE TABLET BY MOUTH ONCE DAILY 04/06/2017 04/17/2017 Inactive Xanax 0.5 mg tablet RxNorm: 350375 Tablet(s) TAKE ONE TABLET BY MOUTH THREE TIMES DAILY 04/04/2017 06/02/2017 Inactive Percocet 10 mg-325 mg tablet RxNorm: 1605896 1-2 Tablet(s) PO Q6 PRN 04/04/2017 04/18/2017 Inactive cyclobenzaprine 10 mg tablet RxNorm: 114755 TAKE ONE TABLET BY MOUTH EVERY 8 HOURS NEEDED 04/03/2017 06/01/2017 Inactive potassium chloride ER 20 mEq tablet,extended release RxNorm: 033981 1 Tablet(s) PO daily 03/28/2017 06/01/2017 Inactive nystatin 100,000 unit/gram topical cream RxNorm: 589750 1 Application TOP BID 03/27/2017 04/09/2017 Inactive Levsin 0.125 mg tablet RxNorm: 6567793 1 Tablet(s) PO Q4 PRN 1-2 Tablet(s) PO Q4 PRN 03/27/2017 04/24/2017 Inactive promethazine 25 mg tablet RxNorm: 297261 1 Tablet(s) PO Q6 PRN 03/23/2017 03/29/2017 Inactive nystatin 100,000 unit/gram topical powder RxNorm: 883699 APPLY POWDER TOPICALLY 4 TIMES DAILY 03/17/2017 05/10/2017 Inactive Percocet 10 mg-325 mg tablet RxNorm: 5873907 1-2 Tablet(s) PO Q6 PRN 03/09/2017 03/23/2017 Inactive Levsin 0.125 mg tablet RxNorm: 4741926 1-2 Tablet(s) PO Q4 PRN 03/06/2017 03/26/2017 Inactive promethazine 25 mg tablet RxNorm: 839803 1 Tablet(s) PO Q6 PRN 03/06/2017 03/13/2017 Inactive potassium chloride ER 20 mEq tablet,extended release RxNorm: 845123 1 Tablet(s) PO BID 02/23/2017 03/09/2017 Inactive Levsin/SL 0.125 mg sublingual tablet RxNorm: 6476083 1-2 Tablet(s) SL Q4 PRN 02/17/2017 03/26/2017 Inactive potassium chloride ER 20 mEq tablet,extended release RxNorm: 192539 1 Tablet(s) PO BID 02/17/2017 02/21/2017 Inactive magnesium oxide 400 mg tablet RxNorm: 189215 1 Tablet(s) PO daily 02/17/2017 02/21/2017 Inactive then twice weekly thereafter Levsin 0.125 mg tablet RxNorm: 7193978 1-2 Tablet(s) PO Q4 PRN 02/17/2017 02/16/2017 Inactive promethazine 25 mg tablet RxNorm: 092070 1 Tablet(s) PO Q6 PRN 02/10/2017 03/05/2017 Inactive Percocet 10 mg-325 mg tablet RxNorm: 0465656 1-2 Tablet(s) PO Q6 PRN 02/09/2017 02/23/2017 Inactive Cymbalta 60 mg capsule,delayed release RxNorm: 822227 1 Capsule(s) PO daily take with 30mg tablet 02/06/2017 05/06/2017 Inactive Cymbalta 30 mg capsule,delayed release RxNorm: 317792 1 Capsule(s) PO daily take with 60mg tablet 02/06/2017 02/19/2018 Inactive take with 60mg=90mg Vitamin D2 50,000 unit capsule RxNorm: 039963 1 Capsule(s) PO daily 01/17/2017 01/16/2017 Inactive daily x 6 mths Tresiba FlexTouch U-100 100 unit/mL (3 mL) subcutaneous insulin pen RxNorm: 0799925 40 Unit(s) SQ daily 01/17/20172016 Inactive Tresiba FlexTouch U-100 100 unit/mL (3 mL) subcutaneous insulin pen RxNorm: 7877720 40 Unit(s) SQ daily 01/17/20172016 Inactive Vitamin D2 50,000 unit capsule RxNorm: 129864 1 Capsule(s) PO daily 01/17/2017 10/26/2017 Inactive daily x 6 mths Cymbalta 30 mg capsule,delayed release RxNorm: 489882 1 Capsule(s) PO daily 01/16/2017 02/05/2017 Inactive take with 60mg=90mg Percocet 10 mg-325 mg tablet RxNorm: 4742540 1-2 Tablet(s) PO Q6 PRN 01/13/2017 01/27/2017 Inactive gabapentin 600 mg tablet RxNorm: 611518 TAKE ONE & ONE-HALF TABLETS BY MOUTH THREE TIMES DAILY 01/10/2017 05/09/2017 Inactive Percocet 10 mg-325 mg tablet RxNorm: 4703827 1-2 Tablet(s) PO Q6 PRN 12/21/2016 01/04/2017 Inactive Xanax 0.5 mg tablet RxNorm: 054236 Tablet(s) TAKE ONE TABLET BY MOUTH THREE TIMES DAILY 12/20/2016 02/15/2017 Inactive promethazine 25 mg tablet RxNorm: 207547 1 Tablet(s) PO Q6 PRN 12/16/2016 12/18/2016 Inactive prednisone 20 mg tablet RxNorm: 414257 2 Tablet(s) PO daily 12/14/2016 Inactive prednisone 20 mg tablet RxNorm: 119115 2 Tablet(s) PO daily 03/26/2017 Inactive Eliquis 5 mg tablet RxNorm: 8324460 1 Tablet(s) PO BID 201601/11/2017 Inactive doxycycline monohydrate 100 mg tablet RxNorm: 354575 1 Tablet(s) PO BID 12/13/2016 03/26/2017 Inactive give doxycyline hyclate cyclobenzaprine 10 mg tablet RxNorm: 558248 TAKE ONE TABLET BY MOUTH EVERY 8 HOURS NEEDED 12/09/2016 12/28/2016 Inactive Cymbalta 60 mg capsule,delayed release RxNorm: 684566 TAKE ONE CAPSULE BY MOUTH ONCE DAILY 11/30/2016 02/05/2017 Inactive promethazine 25 mg tablet RxNorm: 013917 2 Tablet(s) PO Q6 PRN 11/29/2016 12/16/2016 Inactive Percocet 10 mg-325 mg tablet RxNorm: 2706455 1-2 Tablet(s) PO Q6 PRN 11/24/2016 12/08/2016 Inactive mupirocin 2 % topical ointment RxNorm: 921487 1 Application TOP BID 11/11/2016 11/24/2016 Inactive Xanax 0.5 mg tablet RxNorm: 727798 Tablet(s) TAKE ONE TABLET BY MOUTH THREE TIMES DAILY 11/11/2016 12/19/2016 Inactive Belviq 10 mg tablet RxNorm: 3797792 1 Tablet(s) PO BID 201612/10/2016 Inactive Toprol XL 100 mg tablet,extended release RxNorm: 461375 TAKE ONE TABLET BY MOUTH TWICE DAILY 11/04/2016 04/02/2017 Inactive albuterol sulfate concentrate 2.5 mg/0.5 mL solution for nebulization RxNorm: 893620 USE ONE VIAL IN NEBULIZER EVERY 4 TO 6 HOURS NEEDED 11/03/2016 11/12/2016 Inactive Percocet 10 mg-325 mg tablet RxNorm: 4606076 1-2 Tablet(s) PO Q6 PRN 10/31/2016 11/23/2016 Inactive promethazine 25 mg tablet RxNorm: 224015 2 Tablet(s) PO Q6 PRN 10/28/2016 11/28/2016 Inactive nystatin 100,000 unit/mL oral suspension RxNorm: 298720 5 Milliliter(s) PO QID 10/28/2016 11/06/2016 Inactive Levemir FlexTouch 100 unit/mL (3 mL) subcutaneous insulin pen RxNorm: 220189 45 Unit(s) SQ BID 10/28/2016 01/16/2017 Inactive 45 q am and 40 q anita cyclobenzaprine 10 mg tablet RxNorm: 875926 TAKE ONE TABLET BY MOUTH EVERY 8 HOURS NEEDED 10/21/2016 11/09/2016 Inactive Lasix 40 mg tablet RxNorm: 233879 TAKE ONE TABLET BY MOUTH TWICE DAILY 10/18/2016 04/15/2017 Inactive Percocet 10 mg-325 mg tablet RxNorm: 1074859 1-2 Tablet(s) PO Q6 PRN 10/18/2016 10/30/2016 Inactive acyclovir 400 mg tablet RxNorm: 151098 2 Tablet(s) PO QID 10/1310/22/2016 Inactive Lasix 40 mg tablet RxNorm: TAKE ONE TABLET BY MOUTH TWICE DAILY 10/10/2016 10/17/2016 Inactive ropinirole 1 mg tablet RxNorm: 745361 TAKE ONE TABLET BY MOUTH AT BEDTIME 10/10/2016 04/07/2017 Inactive nystatin 100,000 unit/mL oral suspension RxNorm: 141610 5 Milliliter(s) PO QID x 10 days 09/30/2016 10/09/2016 Inactive nystatin 100,000 unit/mL oral suspension RxNorm: 258565 5 Milliliter(s) PO QID x 10 days 09/30/2016 10/09/2016 Inactive Swish et swallow Flonase Allergy Relief 50 mcg/actuation nasal spray, suspension RxNorm: 8138703 2 [place] NASAL daily 09/23/20162016 Inactive Percocet 10 mg-325 mg tablet RxNorm: 6579452 1-2 Tablet(s) PO Q6 PRN 09/23/2016 10/17/2016 Inactive doxycycline monohydrate 100 mg tablet RxNorm: 395738 1 Tablet(s) PO BID 09/23/2016 10/02/2016 Inactive give doxycyline hyclate Levemir FlexTouch 100 unit/mL (3 mL) subcutaneous insulin pen RxNorm: 258245 40 Unit(s) SQ BID 09/15/2016 10/27/2016 Inactive nystatin 100,000 unit/gram topical powder RxNorm: 871289 1 Application TOP QID 09/13/2016 09/22/2016 Inactive Voltaren 1 % topical gel RxNorm: 764489 4 Gram(s) TOP QID 09/1303/11/2017 Inactive Anusol-HC 25 mg rectal suppository RxNorm: 0542448 1 Suppository RTL HS 09/13/2016 09/26/2016 Inactive hydrocodone 10 mg-acetaminophen 325 mg tablet RxNorm: 387155 1-2 Tablet(s) PO Q6 as needed 09/13/2016 09/22/2016 Inactive Linzess 145 mcg capsule RxNorm: 6713218 1 Capsule(s) PO daily 09/01/2016 10/26/2017 Inactive Linzess 145 mcg capsule RxNorm: 8705557 1 Capsule(s) PO daily 09/01/2016 08/31/2016 Inactive Zofran 4 mg tablet RxNorm: 978277 TAKE ONE TABLET BY MOUTH EVERY 4 TO 6 HOURS NEEDED 08/29/2016 08/02/2017 Inactive Voltaren 1 % topical gel RxNorm: 974433 4 Gram(s) TOP QID 08/2309/12/2016 Inactive levothyroxine 88 mcg tablet RxNorm: 756685 TAKE ONE TABLET BY MOUTH ONCE DAILY 08/19/2016 12/16/2016 Inactive hydrocodone 10 mg-acetaminophen 325 mg tablet RxNorm: 162407 1 Tablet(s) PO Q6 as needed 08/17/2016 09/12/2016 Inactive nystatin 100,000 unit/gram topical powder RxNorm: 789926 1 Application TOP QID 08/16/2016 08/25/2016 Inactive Cymbalta 60 mg capsule,delayed release RxNorm: 308664 TAKE ONE CAPSULE BY MOUTH ONCE DAILY 08/10/2016 11/29/2016 Inactive Voltaren 1 % topical gel RxNorm: 374670 4 Gram(s) TOP QID 08/1008/22/2016 Inactive Voltaren 1 % topical gel RxNorm: 801343 4 Gram(s) TOP QID 08/1008/09/2016 Inactive promethazine 25 mg tablet RxNorm: 814478 TAKE ONE TABLET BY MOUTH EVERY 8 HOURS NEEDED FOR NAUSEA 07/29/20162017 Inactive nystatin 100,000 unit/gram topical powder RxNorm: 677511 1 Application TOP QID 07/26/2016 08/04/2016 Inactive Levemir FlexTouch U-100 Insulin 100 unit/mL (3 mL) subcutaneous pen RxNorm: 188195 35 Unit(s) SQ BID 07/26/201609/2016 Inactive 35 q am and 30 q pm cyclobenzaprine 10 mg tablet RxNorm: 751531 TAKE ONE TABLET BY MOUTH EVERY 8 HOURS NEEDED 07/14/2016 08/22/2016 Inactive hydrocodone 10 mg-acetaminophen 325 mg tablet RxNorm: 859511 1 Tablet(s) PO Q6 as needed 07/11/2016 08/16/2016 Inactive nystatin 100,000 unit/mL oral suspension RxNorm: 448779 5 Milliliter(s) PO QID x 10 days 07/05/2016 07/04/2016 Inactive nystatin 100,000 unit/mL oral suspension RxNorm: 976738 5 Milliliter(s) PO QID x 10 days 07/05/2016 07/04/2016 Inactive nystatin 100,000 unit/mL oral suspension RxNorm: 659681 5 Milliliter(s) PO QID x 10 days 07/05/2016 07/14/2016 Inactive Swish et swallow doxycycline monohydrate 100 mg tablet RxNorm: 878612 1 Tablet(s) PO BID 06/24/2016 07/03/2016 Inactive give doxycyline hyclate promethazine 25 mg tablet RxNorm: 101753 TAKE ONE TABLET BY MOUTH EVERY 8 HOURS NEEDED FOR NAUSEA 06/01/20162016 Inactive pantoprazole 40 mg tablet,delayed release RxNorm: 041818 1 Tablet(s) PO BID 05/25/2016 08/02/2017 Inactive Zofran 4 mg tablet RxNorm: 082800 1 Tablet(s) PO Q12 PRN TAKE 1 TABLET BY MOUTH EVERY 4 TO 6 HOURS NEEDED 05/24/2016 Inactive hydrocodone 10 mg-acetaminophen 325 mg tablet RxNorm: 256351 1 Tablet(s) PO Q6 as needed 05/24/2016 07/10/2016 Inactive Levemir FlexTouch 100 unit/mL (3 mL) subcutaneous insulin pen RxNorm: 044909 25 Unit(s) SQ BID 05/24/2016 06/22/2016 Inactive Xanax 0.5 mg tablet RxNorm: 697174 Tablet(s) TAKE ONE TABLET BY MOUTH THREE TIMES DAILY 05/11/2016 07/09/2016 Inactive BD Insulin Pen Needle UF Short 31 gauge x 5/16" [place] [facility] [place]/05/2016 Inactive BD Insulin Pen Needle UF Short 31 gauge x 5/16" [place] [facility] [place] 06/04/2016 Inactive colestipol 1 gram tablet RxNorm: 8173470 Tablet(s) TAKE 1 TABLET BY MOUTH TWICE DAILY 04/22/2016 04/16/2017 Inactive Levemir FlexTouch 100 unit/mL (3 mL) subcutaneous insulin pen RxNorm: 854218 20 Unit(s) SQ BID 04/19/2016 05/18/2016 Inactive 25 UNITS Q AM AND 20 UNITS Q HS Cartia XT 180 mg capsule,extended release RxNorm: 201783 Capsule(s) BID 04/11/2016 04/05/2017 Inactive hydrocodone 10 mg-acetaminophen 325 mg tablet RxNorm: 083220 1 Tablet(s) PO Q6 as needed 04/11/2016 05/23/2016 Inactive Levemir FlexTouch 100 unit/mL (3 mL) subcutaneous insulin pen RxNorm: 844567 20 Unit(s) SQ BID 04/11/2016 04/18/2016 Inactive 20 UNITS Q AM AND 15 UNITS Q HS X 1 WEEK THEN 20 UNITS BID levothyroxine 88 mcg tablet RxNorm: 937249 1 Tablet(s) PO daily 03/21/2016 07/18/2016 Inactive Cymbalta 60 mg capsule,delayed release RxNorm: 435329 1 Capsule(s) PO daily 03/21/2016 07/18/2016 Inactive diltiazem ER (XR/XT) 240 mg capsule,extended release, controlled RxNorm: 915260 1 Capsule(s) PO BID 03/18/20162017 Inactive doxycycline hyclate 100 mg tablet RxNorm: 021120 1 Tablet(s) PO BID 03/11/2016 03/17/2016 Inactive Levemir FlexTouch 100 unit/mL (3 mL) subcutaneous insulin pen RxNorm: 417391 10 Unit(s) SQ BID 03/11/2016 04/09/2016 Inactive Lasix 40 mg tablet RxNorm: 363309 1 Tablet(s) PO BID 201509/06/2016 Inactive gabapentin 600 mg tablet RxNorm: 696721 Tablet(s) 1.5 TABLET(S) PO TID 03/04/2016 08/30/2016 Inactive Toujeo SoloStar 300 unit/mL (1.5 mL) subcutaneous insulin pen RxNorm: 3073015 10 Unit(s) SQ QHS 02/26/2016 03/26/2016 Inactive polymyxin B sulfate 10,000 unit-trimethoprim 1 mg/mL eye drops RxNorm: 512883 2 Drop(s) OPH TID 02/26/2016 03/03/2016 Inactive Lasix 20 mg tablet RxNorm: 888837 2 Tablet(s) PO BID TAKE 2 TABLETS BY MOUTH EVERY MORNING AND 2 TABLET BY MOUTH AT 3 PM 02/26/2016 03/10/2016 Inactive cyclobenzaprine 10 mg tablet RxNorm: 820783 Tablet(s) TABLET(S) TABLET(S) 1 TABLET (S) PO NEEDED TAKE 1 TABLET BY MOUTH EVERY 8 HOURS NEEDED 02/26/2016 07/13/2016 Inactive early fill- pt lost med Levemir FlexTouch 100 unit/mL (3 mL) subcutaneous insulin pen RxNorm: 117814 16 Unit(s) SQ QHS 02/18/2016 02/17/2016 Inactive Levemir FlexTouch 100 unit/mL (3 mL) subcutaneous insulin pen RxNorm: 444586 16 Unit(s) SQ QHS 02/18/2016 02/25/2016 Inactive Levemir 100 unit/mL subcutaneous solution RxNorm: 034877 16 Unit(s) SQ QHS 02/15/2016 02/17/2016 Inactive disp needles as well Effexor XR 37.5 mg capsule,extended release RxNorm: 216753 1 Capsule(s) QPM CAPSULE(S) PO TAKE 2 CAPSULES BY MOUTH EVERY MORNING AND 1 CAPSULE BY MOUTH EVERY NIGHT AT BEDTIME 02/15/20162015 Inactive clotrimazole 100 mg vaginal tablet RxNorm: 856105 1 Tablet(s) VAG QHS 02/05/2016 02/11/2016 Inactive clotrimazole 100 mg vaginal tablet RxNorm: 414134 1 Tablet(s) VAG QHS 02/05/2016 02/04/2016 Inactive hydrocodone 10 mg-acetaminophen 325 mg tablet RxNorm: 676992 1 Tablet(s) PO Q6 as needed 02/05/2016 04/10/2016 Inactive flecainide 100 mg tablet RxNorm: 005251 1 Tablet(s) PO BID No Stop Date Active potassium chloride ER 10 mEq tablet,extended release RxNorm: 415587 1 Tablet(s) PO daily 1 TABLET(S) PO QDAY PRN TAKE WITH LASIX 02/02/2016 01/26/2017 Inactive Brovana 15 mcg/2 mL solution for nebulization RxNorm: 309837 2 Milliliter(s) INH BID PRN 02/02/2016 03/20/2016 Inactive promethazine 25 mg tablet RxNorm: 567551 1 Tablet(s) PO Q8 as needed nausea 01/27/2016 03/20/2016 Inactive promethazine 25 mg tablet RxNorm: 149064 1 Tablet(s) PO Q6 PRN 01/27/2016 02/03/2016 Inactive nystatin 100,000 unit/mL oral suspension RxNorm: 725857 5 Unit(s) PO QID 01/12/2016 05/06/2018 Inactive promethazine 25 mg tablet RxNorm: 080267 1 Tablet(s) PO Q6 PRN 12/30/2015 01/06/2016 Inactive hydrocodone 7.5 mg-acetaminophen 325 mg tablet RxNorm: 009876 1 Tablet(s) PO q 6 hours prn for pain 12/10/2015 01/06/2016 Inactive Xanax 0.5 mg tablet RxNorm: 638279 TAKE ONE TABLET BY MOUTH THREE TIMES DAILY 12/02/2015 12/31/2015 Inactive Xanax 0.5 mg tablet RxNorm: 473970 Tablet(s) TAKE 1 TABLET BY MOUTH THREE TIMES DAILY 12/02/2015 11/30/2015 Inactive Anusol-HC 25 mg rectal suppository RxNorm: 9123213 1 Suppository RTL HS 11/27/2015 09/12/2016 Inactive ropinirole 1 mg tablet RxNorm: 140445 1 Tablet(s) PO QHS 201505/24/2016 Inactive nystatin 100,000 unit/mL oral suspension RxNorm: 983455 5 Unit(s) PO QID 11/20/2015 11/29/2015 Inactive albuterol sulfate concentrate 2.5 mg/0.5 mL solution for nebulization RxNorm: 725443 3 Milliliter(s) INH Q4-6H as needed 11/10/2015 11/02/2016 Inactive doxycycline monohydrate 100 mg tablet RxNorm: 117596 1 Tablet(s) PO BID 11/10/2015 11/19/2015 Inactive give doxycyline hyclate promethazine 25 mg tablet RxNorm: 013910 1 Tablet(s) PO Q6 PRN 11/05/2015 11/12/2015 Inactive Bactroban 2 % topical ointment RxNorm: 407933 1 APPLICATION TOP BID 10/27/2015 10/26/2017 Inactive Belviq 10 mg tablet RxNorm: 3812192 1 Tablet(s) PO BID 201511/25/2015 Inactive hydrocodone 7.5 mg-acetaminophen 325 mg tablet RxNorm: 139135 1 Tablet(s) PO q 6 hours prn for pain 10/20/2015 11/18/2015 Inactive Toprol XL 100 mg tablet,extended release RxNorm: 698124 Tablet(s) TAKE 1 TABLET BY MOUTH TWICE DAILY 10/16/20152016 Inactive Diflucan 150 mg tablet RxNorm: 458171 1 Tablet(s) PO every other day 10/14/2015 10/23/2015 Inactive Xanax 0.5 mg tablet RxNorm: 639419 Tablet(s) TAKE 1 TABLET BY MOUTH THREE TIMES DAILY 10/14/2015 05/10/2016 Inactive Toprol XL 100 mg tablet,extended release RxNorm: 141682 Tablet(s) TAKE 1 TABLET BY MOUTH TWICE DAILY 10/13/20152015 Inactive cyclobenzaprine 10 mg tablet RxNorm: 563546 Tablet(s) TABLET(S) TABLET(S) 1 TABLET (S) PO NEEDED TAKE 1 TABLET BY MOUTH EVERY 8 HOURS NEEDED 10/02/2015 10/14/2015 Inactive Zofran 4 mg tablet RxNorm: 644341 Tablet(s) 1 TABLET(S) PRN TAKE 1 TABLET BY MOUTH EVERY 4 TO 6 HOURS NEEDED 09/29/2015 12/27/2015 Inactive Synthroid 88 mcg tablet RxNorm: 429141 1 Tablet(s) PO daily 1 TABLET(S) PO DAILY 09/29/2015 10/28/2015 Inactive Patient requests 90 days supply promethazine 25 mg tablet RxNorm: 061242 1 Tablet(s) PO Q6 PRN 09/29/2015 11/04/2015 Inactive Lasix 20 mg tablet RxNorm: 511244 2 Tablet(s) PO BID 201501/18/2016 Inactive promethazine 25 mg tablet RxNorm: 534045 1 Tablet(s) PO Q6 PRN 09/22/2015 09/28/2015 Inactive hydrocodone 7.5 mg-acetaminophen 325 mg tablet RxNorm: 381767 1 Tablet(s) PO q 6 hours prn for pain 09/17/2015 10/16/2015 Inactive WelChol 625 mg tablet RxNorm: 421360 3 Tablet(s) PO BID 201503/26/2017 Inactive promethazine 25 mg tablet RxNorm: 902011 1 Tablet(s) PO Q8 as needed 09/07/2015 10/26/2017 Inactive Levemir 100 unit/mL subcutaneous solution RxNorm: 312785 16 Unit(s) SQ QHS 09/01/2015 02/14/2016 Inactive pantoprazole 40 mg tablet,delayed release RxNorm: 992504 1 Tablet(s) PO daily 09/01/2015 05/24/2016 Inactive Effexor XR 37.5 mg capsule,extended release RxNorm: 158402 Capsule(s) CAPSULE(S) PO TAKE 2 CAPSULES BY MOUTH EVERY MORNING AND 1 CAPSULE BY MOUTH EVERY NIGHT AT BEDTIME 08/27/2015 02/14/2016 Inactive promethazine 25 mg tablet RxNorm: 668846 1 Tablet(s) PO Q8 as needed 08/13/2015 09/06/2015 Inactive gabapentin 600 mg tablet RxNorm: 793821 Tablet(s) 1.5 TABLET(S) PO TID 08/13/2015 02/08/2016 Inactive hydrocodone 7.5 mg-acetaminophen 325 mg tablet RxNorm: 976058 1 Tablet(s) PO q 6 hours prn for pain 08/10/2015 09/08/2015 Inactive Zofran 4 mg tablet RxNorm: 518602 Tablet(s) 1 TABLET(S) PRN TAKE 1 TABLET BY MOUTH EVERY 4 TO 6 HOURS NEEDED 08/04/2015 08/03/2015 Inactive Zofran 4 mg tablet RxNorm: 397308 Tablet(s) 1 TABLET(S) PRN TAKE 1 TABLET BY MOUTH EVERY 4 TO 6 HOURS NEEDED 08/04/2015 09/28/2015 Inactive doxycycline monohydrate 100 mg tablet RxNorm: 917700 1 Tablet(s) PO BID 08/04/2015 08/10/2015 Inactive give doxycyline hyclate Diflucan 150 mg tablet RxNorm: 540804 1 Tablet(s) PO every other day 07/31/2015 08/09/2015 Inactive nystatin 100,000 unit/mL oral suspension RxNorm: 645803 5 Milliliter(s) PO QID 07/31/2015 07/30/2015 Inactive Diflucan 150 mg tablet RxNorm: 649152 1 Tablet(s) PO every other day 07/31/2015 07/30/2015 Inactive nystatin 100,000 unit/mL oral suspension RxNorm: 557663 5 Milliliter(s) PO QID 07/31/2015 08/09/2015 Inactive Ceftin 500 mg tablet RxNorm: 075145 1 Tablet(s) PO BID 201507/23/2015 Inactive Ceftin 500 mg tablet RxNorm: 650254 1 Tablet(s) PO BID Pre-medicate with benadryl 50 mg, pepcid 20 mg, and nathanael before each dose 07/24/2015 07/30/2015 Inactive cyclobenzaprine 10 mg tablet RxNorm: 162309 TABLET(S) TABLET(S) 1 TABLET(S) PO NEEDED TAKE 1 TABLET BY MOUTH EVERY 8 HOURS NEEDED 201502/25/2016 Inactive early fill- pt lost med Synthroid 88 mcg tablet RxNorm: 947186 1 TABLET(S) PO DAILY 07/201509/28/2015 Inactive Patient requests 90 days supply cyclobenzaprine 10 mg tablet RxNorm: 248038 Tablet(s) TABLET(S) TABLET(S) 1 TABLET (S) PO NEEDED TAKE 1 TABLET BY MOUTH EVERY 8 HOURS NEEDED 07/23/2015 10/01/2015 Inactive early fill- pt lost med Promethazine VC 6.25 mg-5 mg/5 mL syrup RxNorm: 3787420 1-2 Teaspoon(s) PO Q6 PRN as needed 07/22/2015 03/20/2016 Inactive Diflucan 150 mg tablet RxNorm: 333993 1 Tablet(s) PO daily 06/201507/22/2015 Inactive Lasix 20 mg tablet RxNorm: 288763 Tablet(s) TAKE 2 TABLETS BY MOUTH EVERY MORNING AND 2 TABLET BY MOUTH AT 3PM 07/16/2015 09/21/2015 Inactive Toprol XL 100 mg tablet,extended release RxNorm: 204675 Tablet(s) TAKE 1 TABLET BY MOUTH TWICE DAILY 07/16/20152015 Inactive Cartia XT 180 mg capsule,extended release RxNorm: 821858 Capsule(s) 1 CAPSULE(S) PO DAILY TAKE 1 CAPSULE BY MOUTH AT BEDTIME ..TAKE THIS IN ADDITION TO 240 MG IN THE MORNING 07/14/2015 04/10/2016 Inactive diltiazem ER (XR/XT) 240 mg capsule,extended release, controlled RxNorm: 631662 Capsule(s) TAKE 1 CAPSULE BY MOUTH DAILY 07/14/2015 03/17/2016 Inactive gabapentin 600 mg tablet RxNorm: 561183 Tablet(s) 1.5 TABLET(S) PO TID 07/06/2015 08/12/2015 Inactive Phenergan 25 mg tablet RxNorm: 314770 1 Tablet(s) PO Q8 as needed nausea 06/29/2015 01/25/2016 Inactive doxycycline monohydrate 100 mg tablet RxNorm: 749987 1 Tablet(s) PO BID 06/29/2015 06/28/2015 Inactive doxycycline monohydrate 100 mg tablet RxNorm: 932528 1 Tablet(s) PO BID 06/29/2015 07/08/2015 Inactive give doxycyline hyclate doxycycline monohydrate 100 mg tablet RxNorm: 376027 1 Tablet(s) PO BID 06/29/2015 06/28/2015 Inactive Lasix 20 mg tablet RxNorm: 660677 Tablet(s) TAKE 2 TABLETS BY MOUTH EVERY MORNING AND 2 TABLET BY MOUTH AT 3PM 06/29/2015 07/15/2015 Inactive Lasix 20 mg tablet RxNorm: 507527 Tablet(s) TAKE 2 TABLETS BY MOUTH EVERY MORNING AND 1 TABLET BY MOUTH AT 3PM 06/26/2015 06/28/2015 Inactive Xanax 0.5 mg tablet RxNorm: 511655 Tablet(s) TAKE 1 TABLET BY MOUTH THREE TIMES DAILY 06/26/2015 07/25/2015 Inactive Kenalog 40 mg/mL suspension for injection RxNorm: 4065654 Milliliter(s) Inj 06/26/2015 06/26/2015 Inactive hydrocodone 7.5 mg-acetaminophen 325 mg tablet RxNorm: 627512 1 Tablet(s) PO q 6 hours prn for pain 06/26/2015 07/25/2015 Inactive Dexilant 60 mg capsule, delayed release RxNorm: 248073 1 Capsule(s) PO daily 06/26/2015 08/24/2015 Inactive colestipol 1 gram tablet RxNorm: 4448990 1 TABLET(S) PO BID TAKE 1 TABLET BY MOUTH TWICE DAILY 06/16/2015 03/11/2016 Inactive hydrocodone 7.5 mg-acetaminophen 325 mg tablet RxNorm: 057222 1 Tablet(s) PO q 6 hours prn for pain 06/11/2015 06/25/2015 Inactive cyclobenzaprine 10 mg tablet RxNorm: 971985 TABLET(S) TABLET(S) 1 TABLET(S) PO NEEDED TAKE 1 TABLET BY MOUTH EVERY 8 HOURS NEEDED 201507/22/2015 Inactive early fill- pt lost med Zofran 4 mg tablet RxNorm: 964233 1 TABLET(S) PRN TAKE 1 TABLET BY MOUTH EVERY 4 TO 6 HOURS NEEDED 05/25/20152015 Inactive Zofran 4 mg tablet RxNorm: 929199 1 Tablet(s) PRN TAKE 1 TABLET BY MOUTH EVERY 4 TO 6 HOURS NEEDED 05/19/20152015 Inactive gabapentin 600 mg tablet RxNorm: 568857 1.5 TABLET(S) PO TID 07/05/2015 Inactive Lasix 20 mg tablet RxNorm: 169719 TAKE 2 TABLETS BY MOUTH EVERY MORNING AND 1 TABLET BY MOUTH AT 3PM 05/07/20152015 Inactive Effexor XR 37.5 mg capsule,extended release RxNorm: 494280 Capsule(s) CAPSULE(S) PO TAKE 2 CAPSULES BY MOUTH EVERY MORNING AND 1 CAPSULE BY MOUTH EVERY NIGHT AT BEDTIME 04/15/2015 08/26/2015 Inactive Diflucan 150 mg tablet RxNorm: 372115 1 Tablet(s) PO daily 04/18/2015 Inactive Victoza 3-Babak 0.6 mg/0.1 mL (18 mg/3 mL) subcutaneous pen injector RxNorm: 969935 1.8 Milligram(s) SQ daily 04/14/201508/10 Inactive Levaquin 500 mg tablet RxNorm: 536507 1 Tablet(s) PO daily 04/20/2015 Inactive potassium chloride ER 10 mEq tablet,extended release RxNorm: 193567 1 TABLET(S) PO QDAY PRN TAKE WITH LASIX 04/13/201504/2016 Inactive Effexor XR 37.5 mg capsule,extended release RxNorm: 791308 CAPSULE(S) PO TAKE 2 CAPSULES BY MOUTH EVERY MORNING AND 1 CAPSULE BY MOUTH EVERY NIGHT AT BEDTIME 04/10/2015 04/14/2015 Inactive pantoprazole 40 mg tablet,delayed release RxNorm: 167179 1 Tablet(s) PO daily 03/31/2015 08/31/2015 Inactive Dexilant 60 mg capsule, delayed release RxNorm: 383412 1 Capsule(s) PO daily 03/31/2015 03/31/2015 Inactive pantoprazole 40 mg tablet,delayed release RxNorm: 877292 1 Tablet(s) PO daily 03/31/2015 03/30/2015 Inactive Dexilant 60 mg capsule, delayed release RxNorm: 217232 1 Capsule(s) PO daily 03/31/2015 05/29/2015 Inactive Dexilant 60 mg capsule, delayed release RxNorm: 829235 1 Capsule(s) PO daily 03/30/2015 03/30/2015 Inactive hydrocodone 7.5 mg-acetaminophen 325 mg tablet RxNorm: 066634 1 Tablet(s) PO q 6 hours prn for pain 03/30/2015 04/28/2015 Inactive cyclobenzaprine 10 mg tablet RxNorm: 199361 TABLET(S) TABLET(S) 1 TABLET(S) PO NEEDED TAKE 1 TABLET BY MOUTH EVERY 8 HOURS NEEDED 201405/31/2015 Inactive early fill- pt lost med Xanax 0.5 mg tablet RxNorm: 463959 Tablet(s) TAKE 1 TABLET BY MOUTH THREE TIMES DAILY 03/25/2015 04/23/2015 Inactive Lasix 20 mg tablet RxNorm: 724294 TAKE 2 TABLETS BY MOUTH EVERY MORNING AND 1 TABLET BY MOUTH AT 3PM 03/23/20152014 Inactive Levemir Flexpen 100 unit/mL (3 mL) solution subcutaneous insulin pen RxNorm: 147089 15 Unit(s) SQ BID 03/20/20152015 Inactive give quanity sufficient for 1 month- Dexilant 60 mg capsule, delayed release RxNorm: 032991 1 Capsule(s) PO daily 03/19/2015 03/29/2015 Inactive Dexilant 60 mg capsule, delayed release RxNorm: 882032 1 Capsule(s) PO daily 03/19/2015 03/18/2015 Inactive Diflucan 150 mg tablet RxNorm: 267675 1 Tablet(s) PO every other day x7 doses 03/19/2015 03/21/2015 Inactive hydrocodone 7.5 mg-acetaminophen 325 mg tablet RxNorm: 321900 1 Tablet(s) PO q 6 hours prn for pain 02/27/2015 03/28/2015 Inactive Lasix 20 mg tablet RxNorm: 171473 TAKE 2 TABLETS BY MOUTH EVERY MORNING AND 1 TABLET BY MOUTH AT 3PM 02/27/20152014 Inactive omeprazole 20 mg capsule,delayed release RxNorm: 154033 1 CAPSULE(S) PO DAILY TAKE 1 CAPSULE BY MOUTH TWICE DAILY 02/26/2015 10/26/2017 Inactive Zofran 4 mg tablet RxNorm: 320582 1 Tablet(s) PRN TAKE 1 TABLET BY MOUTH EVERY 4 TO 6 HOURS NEEDED 02/24/20152014 Inactive fluconazole 150 mg tablet RxNorm: 114498 1 Tablet(s) PO every other day x 5 doses 02/19/2015 02/28/2015 Inactive cyclobenzaprine 10 mg tablet RxNorm: 306687 TABLET(S) TABLET(S) 1 TABLET(S) PO NEEDED TAKE 1 TABLET BY MOUTH EVERY 8 HOURS NEEDED 201403/29/2015 Inactive early fill- pt lost med hydrocodone 7.5 mg-acetaminophen 325 mg tablet RxNorm: 457116 1 Tablet(s) PO q 6 hours prn for pain 01/29/2015 02/26/2015 Inactive Xanax 0.5 mg tablet RxNorm: 701857 Tablet(s) TAKE 1 TABLET BY MOUTH THREE TIMES DAILY 01/29/2015 02/27/2015 Inactive Bactroban 2 % topical ointment RxNorm: 563133 1 APPLICATION TOP BID 01/26/2015 10/26/2015 Inactive Bactroban 2 % topical ointment RxNorm: 258383 1 Application TOP BID 01/15/2015 01/25/2015 Inactive doxycycline hyclate 100 mg tablet RxNorm: 695021 1 Tablet(s) PO BID 01/15/2015 01/21/2015 Inactive nystatin 100,000 unit/mL oral suspension RxNorm: 747066 5 Milliliter(s) PO QID 01/15/2015 01/24/2015 Inactive Cartia XT 180 mg capsule,extended release RxNorm: 534719 1 CAPSULE(S) PO DAILY TAKE 1 CAPSULE BY MOUTH AT BEDTIME ..TAKE THIS IN ADDITION TO 240 MG IN THE MORNING 01/13/2015 07/13/2015 Inactive Lasix 20 mg tablet RxNorm: 295448 TAKE 2 TABLETS BY MOUTH EVERY MORNING AND 1 TABLET BY MOUTH AT 3PM 01/08/20152014 Inactive fluconazole 150 mg tablet RxNorm: 647516 1 Tablet(s) PO daily 01/01/2015 01/05/2015 Inactive hydrocodone 7.5 mg-acetaminophen 325 mg tablet RxNorm: 522057 1 Tablet(s) PO q 6 hours prn for pain 01/01/2015 01/28/2015 Inactive colestipol 1 gram tablet RxNorm: 0918028 1 TABLET(S) PO BID TAKE 1 TABLET BY MOUTH TWICE DAILY 12/18/2014 06/15/2015 Inactive colestipol 1 gram tablet RxNorm: 9894074 1 TABLET(S) PO BID TAKE 1 TABLET BY MOUTH TWICE DAILY 12/18/2014 09/13/2015 Inactive Lasix 20 mg tablet RxNorm: 061211 TAKE 2 TABLETS BY MOUTH EVERY MORNING AND 2 TABLETS AND AT 3PM 12/11/2014 12/25/2014 Inactive cyclobenzaprine 10 mg tablet RxNorm: 529946 TABLET(S) 1 TABLET(S) PO NEEDED TAKE 1 TABLET BY MOUTH EVERY 8 HOURS NEEDED 12/11/2014 05/31/2017 Inactive Lasix 20 mg tablet RxNorm: 239039 Tablet(s) TABLET(S) PO TAKE 2 TABLETS BY MOUTH EVERY MORNING AND 1 TABLET BY MOUTH AT 3 PM 12/10/2014 12/10/2014 Inactive fill early- pt lost them cyclobenzaprine 10 mg tablet RxNorm: 519526 Tablet(s) TABLET(S) 1 TABLET(S) PO NEEDED TAKE 1 TABLET BY MOUTH EVERY 8 HOURS NEEDED 201402/15/2015 Inactive early fill- pt lost med cyclobenzaprine 10 mg tablet RxNorm: 354866 TABLET(S) 1 TABLET(S) PO NEEDED TAKE 1 TABLET BY MOUTH EVERY 8 HOURS NEEDED 12/02/2014 12/09/2014 Inactive hydrocodone 7.5 mg-acetaminophen 325 mg tablet RxNorm: 501373 1 Tablet(s) PO q 6 hours prn for pain 12/01/2014 12/30/2014 Inactive diltiazem ER (XR/XT) 240 mg capsule,extended release, controlled RxNorm: 621878 TAKE 1 CAPSULE BY MOUTH DAILY 11/30/2014 07/13/2015 Inactive Xanax 0.5 mg tablet RxNorm: 162675 1 Tablet(s) PO TID PRN as needed 11/19/2014 11/19/2014 Inactive (Appended: Controlled substance eRx refill - RxReferenceNumber: [id number]|1|0|1) Xanax 0.5 mg tablet RxNorm: 038660 TAKE 1 TABLET BY MOUTH THREE TIMES DAILY 11/19/2014 12/18/2014 Inactive Toprol XL 100 mg tablet,extended release RxNorm: 026697 TAKE 1 TABLET BY MOUTH TWICE DAILY 11/06/2014 07/15/2015 Inactive Diflucan 150 mg tablet RxNorm: 830640 1 Tablet(s) PO every other day x7 doses 11/05/2014 11/07/2014 Inactive omeprazole 20 mg capsule,delayed release RxNorm: 226141 1 Capsule(s) PO daily TAKE 1 CAPSULE BY MOUTH TWICE DAILY 11/04/2014 02/01/2015 Inactive cyclobenzaprine 10 mg tablet RxNorm: 374896 TABLET(S) 1 TABLET(S) PO NEEDED TAKE 1 TABLET BY MOUTH EVERY 8 HOURS NEEDED 10/28/2014 12/01/2014 Inactive hydrocodone 7.5 mg-acetaminophen 325 mg tablet RxNorm: 945821 1 Tablet(s) PO q 6 hours prn for pain 10/21/2014 11/19/2014 Inactive gabapentin 600 mg tablet RxNorm: 247433 1.5 Tablet(s) PO TID 04/30/2015 Inactive Xanax 0.5 mg tablet RxNorm: 194599 Tablet(s) TAKE 1 TABLET BY MOUTH THREE TIMES DAILY 10/01/2014 10/30/2014 Inactive (Response to an electronic controlled substance refill request - RxReferenceNumber: [id number]|1|0|1) Xanax 0.25 mg tablet RxNorm: 216477 1 Tablet(s) PO Q8 PRN as needed 09/30/2014 09/30/2014 Inactive Lasix 20 mg tablet RxNorm: 238389 Tablet(s) TAKE 2 TABLETS BY MOUTH EVERY MORNING AND 2 TABLETS BY MOUTH AT 3 PM 09/30/2014 11/12/2014 Inactive Victoza 3-Babak 0.6 mg/0.1 mL (18 mg/3 mL) subcutaneous pen injector RxNorm: 361382 1.2 MILLIGRAM(S) SQ DAILY 0.6 X 2 WEEKS THEN INCREASE TO 1.2MG DAILY 09/26/2014 04/13/2015 Inactive Xanax 0.5 mg tablet RxNorm: 229078 TAKE 1 TABLET BY MOUTH THREE TIMES DAILY 09/25/2014 09/30/2014 Inactive (Response to an electronic controlled substance refill request [id number]|1|0|1) Zofran 4 mg tablet RxNorm: 104171 TAKE 1 TABLET BY MOUTH EVERY 4 TO 6 HOURS NEEDED 09/25/2014 09/27/2014 Inactive hydrocodone 7.5 mg-acetaminophen 325 mg tablet RxNorm: 883475 1 Tablet(s) PO q 6 hours prn for pain 09/19/2014 10/18/2014 Inactive cyclobenzaprine 10 mg tablet RxNorm: 718948 TABLET(S) 1 TABLET(S) PO NEEDED TAKE 1 TABLET BY MOUTH EVERY 8 HOURS NEEDED 09/15/2014 10/27/2014 Inactive Lasix 20 mg tablet RxNorm: 049921 Tablet(s) TAKE 2 TABLETS BY MOUTH EVERY MORNING AND 2 TABLETS BY MOUTH AT 3 PM 09/08/2014 09/29/2014 Inactive Lasix 20 mg tablet RxNorm: 371370 TAKE 2 TABLETS BY MOUTH EVERY MORNING AND 2 TABLETS BY MOUTH AT 3 PM 08/21/20142014 Inactive hydrocodone 7.5 mg-acetaminophen 325 mg tablet RxNorm: 452205 1 Tablet(s) PO q 6 hours prn for pain 08/21/2014 09/18/2014 Inactive Diflucan 150 mg tablet RxNorm: 403534 1 Tablet(s) PO every other day 08/15/2014 08/17/2014 Inactive cyclobenzaprine 10 mg tablet RxNorm: 733501 Tablet(s) 1 TABLET(S) PO NEEDED TAKE 1 TABLET BY MOUTH EVERY 8 HOURS NEEDED 08/12/2014 09/14/2014 Inactive Zofran 4 mg tablet RxNorm: 117131 TAKE 1 TABLET BY MOUTH EVERY 4 TO 6 HOURS NEEDED 07/31/2014 08/02/2014 Inactive Effexor XR 37.5 mg capsule,extended release RxNorm: 089075 CAPSULE(S) PO TAKE 2 CAPSULES BY MOUTH EVERY MORNING AND 1 CAPSULE BY MOUTH EVERY NIGHT AT BEDTIME 07/28/2014 02/15/2016 Inactive Lasix 20 mg tablet RxNorm: 959117 TAKE 2 TABLETS BY MOUTH EVERY MORNING AND 2 TABLETS BY MOUTH AT 3 PM 07/22/20142014 Inactive Diflucan 150 mg tablet RxNorm: 308849 1 Tablet(s) PO daily 06/201407/23/2014 Inactive hydrocodone 7.5 mg-acetaminophen 325 mg tablet RxNorm: 706600 1 Tablet(s) PO q 6 hours prn for pain 07/14/2014 08/12/2014 Inactive Synthroid 88 mcg tablet RxNorm: 446154 1 TABLET(S) PO DAILY 10/11/2014 Inactive Effexor XR 37.5 mg capsule,extended release RxNorm: 211120 Capsule(s) PO TAKE 2 CAPSULES BY MOUTH EVERY MORNING AND 1 CAPSULE BY MOUTH EVERY NIGHT AT BEDTIME 07/07/2014 04/09/2015 Inactive Effexor XR 37.5 mg capsule,extended release RxNorm: 849572 TAKE 2 CAPSULES BY MOUTH EVERY MORNING AND 1 CAPSULE BY MOUTH EVERY NIGHT AT BEDTIME 07/07/2014 01/02/2015 Inactive WelChol 625 mg tablet RxNorm: 128079 3 TABLET(S) PO BID 201410/04/2014 Inactive WelChol 625 mg tablet RxNorm: 844136 3 Tablet(s) PO BID 201402/01/2015 Inactive Zofran 4 mg tablet RxNorm: 506238 TAKE 1 TABLET BY MOUTH EVERY 4 TO 6 HOURS NEEDED 07/03/2014 07/05/2014 Inactive Lasix 20 mg tablet RxNorm: 481401 TAKE 2 TABLETS BY MOUTH EVERY MORNING AND 2 TABLETS BY MOUTH AT 3 PM 06/26/20142014 Inactive Diflucan 150 mg tablet RxNorm: 552788 1 Tablet(s) PO daily 06/19/2014 Inactive Promethazine VC 6.25 mg-5 mg/5 mL syrup RxNorm: 4013152 1-2 Teaspoon(s) PO Q6 PRN as needed 06/12/2014 07/21/2015 Inactive hydrocodone 7.5 mg-acetaminophen 325 mg tablet RxNorm: 242603 1 Tablet(s) PO q 6 hours prn for pain 06/03/2014 07/02/2014 Inactive Levaquin 500 mg tablet RxNorm: 928945 1 Tablet(s) PO daily 01/201506/05/2014 Inactive cyclobenzaprine 10 mg tablet RxNorm: 076096 Tablet(s) 1 TABLET(S) PO NEEDED TAKE 1 TABLET BY MOUTH EVERY 8 HOURS NEEDED 05/26/2014 No Stop Date Active cyclobenzaprine 10 mg tablet RxNorm: 114901 1 TABLET(S) PO NEEDED TAKE 1 TABLET BY MOUTH EVERY 8 HOURS NEEDED 05/26/2014 08/11/2014 Inactive Lasix 20 mg tablet RxNorm: 077526 Tablet(s) TABLET(S) PO TAKE 2 TABLETS BY MOUTH EVERY MORNING AND 2 TABLET BY MOUTH AT 3 PM 05/12/2014 06/25/2014 Inactive Combivent Respimat 20 mcg-100 mcg/actuation solution for inhalation RxNorm: 1388285 INHALE 1 PUFF BY MOUTH FOUR TIMES DAILY 05/12/2014 11/07/2014 Inactive fluconazole 150 mg tablet RxNorm: 112602 1 Tablet(s) PO UD 05/12/2014 Inactive 1 tab every other day x 5 doses Activella 0.5 mg-0.1 mg tablet RxNorm: 6795353 1 TABLET(S) PO DAILY TAKE 1 TABLET BY MOUTH DAILY FOR MENOPAUSAL SYMPTOM 05/02/2014 09/21/2015 Inactive hydrocodone 7.5 mg-acetaminophen 300 mg tablet RxNorm: 932540 Tablet(s) PO TAKE 1 TABLET BY MOUTH EVERY 6 HOURS NEEDED FOR PAIN 04/21/2014 06/03/2014 Inactive ( Appended: Controlled substance eRx refill - RxReferenceNumber: [id number]|1|0|1 ) Levaquin 500 mg tablet RxNorm: 436655 1 Tablet(s) PO daily 04/21/2014 Inactive Diflucan 150 mg tablet RxNorm: 073195 1 Tablet(s) PO every other day x 4 doses 04/10/2014 06/16/2014 Inactive Lasix 20 mg tablet RxNorm: 059918 TAKE 2 TABLETS BY MOUTH EVERY MORNING AND 1 TABLET BY MOUTH AT 3 PM 04/10/20142013 Inactive potassium chloride ER 10 mEq tablet,extended release RxNorm: 068158 1 TABLET(S) PO QDAY PRN TAKE WITH LASIX 04/09/2014 Inactive Levaquin 250 mg tablet RxNorm: 342608 1 Tablet(s) PO daily 08/201304/07/2014 Inactive 2 tabs today then 1 tab daily until gone atorvastatin 40 mg tablet RxNorm: 356777 1 Tablet(s) daily 1 TABLET(S) PO DAILY 03/25/2014 04/10/2016 Inactive TAKE 1 TABLET BY MOUTH DAILY (THIS IS AN INCREASE IN DOSAGE) Zofran 4 mg tablet RxNorm: 284148 1 Tablet(s) PO Q4-6H 201307/02/2014 Inactive Xanax 0.5 mg tablet RxNorm: 277481 TAKE 1 TABLET BY MOUTH THREE TIMES DAILY NEEDED 03/19/2014 04/17/2014 Inactive (Response to an electronic controlled substance refill request - RxReferenceNumber: [id number]|1|0|1) hydrocodone 7.5 mg-acetaminophen 300 mg tablet RxNorm: 829164 Tablet(s) PO TAKE 1 TABLET BY MOUTH EVERY 6 HOURS NEEDED FOR PAIN 03/19/2014 04/20/2014 Inactive ( Appended: Controlled substance eRx refill - RxReferenceNumber: [id number]|1|0|1 ) atorvastatin 40 mg tablet RxNorm: 573870 1 TABLET(S) PO DAILY 03/10/2014 03/24/2014 Inactive TAKE 1 TABLET BY MOUTH DAILY (THIS IS AN INCREASE IN DOSAGE) WelChol 625 mg tablet RxNorm: 357645 3 Tablet(s) PO BID 201303/06/2014 Inactive WelChol 625 mg tablet RxNorm: 645099 3 Tablet(s) PO BID 201307/04/2014 Inactive Lasix 20 mg tablet RxNorm: 540079 Tablet(s) TABLET(S) PO TAKE 2 TABLETS BY MOUTH EVERY MORNING AND 2 TABLET BY MOUTH AT 3 PM 03/03/2014 05/11/2014 Inactive Lasix 20 mg tablet RxNorm: TABLET(S) PO TAKE 2 TABLETS BY MOUTH EVERY MORNING AND 1 TABLET BY MOUTH AT 3 PM 02/20/2014 03/02/2014 Inactive gabapentin 600 mg tablet RxNorm: 804135 1.5 Tablet(s) PO TID 09/16/2014 Inactive Synthroid 88 mcg tablet RxNorm: 451500 1 TABLET(S) PO DAILY 05/18/2014 Inactive cyclobenzaprine 10 mg tablet RxNorm: 051703 1 TABLET(S) PO NEEDED TAKE 1 TABLET BY MOUTH EVERY 8 HOURS NEEDED 02/18/2014 05/25/2014 Inactive doxycycline hyclate 100 mg tablet RxNorm: 704736 1 Tablet(s) PO BID 02/13/2014 02/22/2014 Inactive Bactroban 2 % topical ointment RxNorm: 013009 1 Application TOP BID 02/13/2014 03/12/2014 Inactive Victoza 3-Babak 0.6 mg/0.1 mL (18 mg/3 mL) subcutaneous pen injector RxNorm: 517212 1.2 MILLIGRAM(S) SQ DAILY 0.6 X 2 WEEKS THEN INCREASE TO 1.2MG DAILY 02/10/2014 05/10/2014 Inactive albuterol sulfate 1.25 mg/3 mL solution for nebulization RxNorm: 973917 3 MILLILITER(S) INH TID 02/07/20142014 Inactive 1 box Victoza 3-Babak 0.6 mg/0.1 mL (18 mg/3 mL) subcutaneous pen injector RxNorm: 709621 1.8 Milligram(s) SQ daily 0.6 x 2 weeks then increase to 1.2mg daily 01/27/2014 05/26/2014 Inactive Levemir Flexpen 100 unit/mL (3 mL) solution subcutaneous insulin pen RxNorm: 871663 5units sq at hs, increase by 3 Unit(s) SQ at hs every 3days, goal FSBS 170 or less, do not increase above 20units, call doctor with report 01/27/2014 05/26/2014 Inactive hydrocodone 7.5 mg-acetaminophen 300 mg tablet RxNorm: 248158 Tablet(s) PO TAKE 1 TABLET BY MOUTH EVERY 6 HOURS NEEDED FOR PAIN 01/24/2014 03/18/2014 Inactive ( Appended: Controlled substance eRx refill - RxReferenceNumber: [id number]|1|0|1 ) Xanax 0.5 mg tablet RxNorm: 083010 1 Tablet(s) PO TID PRN as needed 01/24/2014 09/21/2014 Inactive (Appended: Controlled substance eRx refill - RxReferenceNumber: [id number]|1|0|1) Xanax 0.5 mg tablet RxNorm: 163680 TAKE 1 TABLET BY MOUTH THREE TIMES DAILY NEEDED 01/23/2014 02/21/2014 Inactive (Response to an electronic controlled substance refill request - RxReferenceNumber: [id number]|1|0|1) hydrocodone 5 mg-acetaminophen 325 mg tablet RxNorm: 384124 TAKE 1 TABLET BY MOUTH EVERY 6 HOURS NEEDED FOR PAIN 01/21/2014 02/19/2014 Inactive (Response to an electronic controlled substance refill request - RxReferenceNumber: [id number]| [id number]|1|0|1) Lasix 20 mg tablet RxNorm: 948992 TAKE 2 TABLETS BY MOUTH EVERY MORNING AND 1 TABLET BY MOUTH AT 3 PM 01/17/20142013 Inactive cyclobenzaprine 10 mg tablet RxNorm: 685061 1 Tablet(s) PO as needed TAKE 1 TABLET BY MOUTH EVERY 8 HOURS NEEDED 01/13/2014 02/17/2014 Inactive Anusol-HC 25 mg suppository RxNorm: 2905599 1 SUPPOSITORY RTL PRN ONE PER RECTUM NEEDED, UP TO TWICE DAILY FOR HEMORRHOID, NO MORE THAN 7 DAYS IN A ROW 01/10/2014 02/06/2014 Inactive Activella 0.5 mg-0.1 mg tablet RxNorm: 3465668 1 Tablet(s) PO daily TAKE 1 TABLET BY MOUTH DAILY FOR MENOPAUSAL SYMPTOM 01/08/2014 05/01/2014 Inactive gabapentin 600 mg tablet RxNorm: 466374 1.5 Tablet(s) PO TID 02/18/2014 Inactive gabapentin 600 mg tablet RxNorm: 496396 1.5 Tablet(s) PO TID 01/01/2014 Inactive hydrocodone 7.5 mg-acetaminophen 300 mg tablet RxNorm: 267283 Tablet(s) PO TAKE 1 TABLET BY MOUTH EVERY 6 HOURS NEEDED FOR PAIN 12/12/2013 01/23/2014 Inactive ( Appended: Controlled substance eRx refill - RxReferenceNumber: [id number]|1|0|1 ) Levaquin 250 mg tablet RxNorm: 741707 1 Tablet(s) PO daily 12/18/2013 Inactive 2 tabs today then 1 tab daily until gone Diflucan 150 mg tablet RxNorm: 066661 1 Tablet(s) PO daily 12/16/2013 Inactive do not stat until levaquin is completed Cartia XT 180 mg capsule,extended release RxNorm: 615857 1 CAPSULE(S) PO DAILY TAKE 1 CAPSULE BY MOUTH AT BEDTIME ..TAKE THIS IN ADDITION TO 240 MG IN THE MORNING 12/12/2013 12/06/2014 Inactive diltiazem ER (XR/XT) 240 mg capsule,extended release, controlled RxNorm: 375498 1 Capsule(s) PO daily TAKE 1 CAPSULE BY MOUTH EVERY DAY 11/28/2014 Inactive Effexor XR 37.5 mg capsule,extended release RxNorm: 895075 Capsule(s) PO TAKE 2 CAPSULES BY MOUTH EVERY MORNING AND 1 CAPSULE BY MOUTH EVERY NIGHT AT BEDTIME 12/04/2013 07/06/2014 Inactive Lasix 20 mg tablet RxNorm: TABLET(S) PO TAKE 2 TABLETS BY MOUTH EVERY MORNING AND 1 TABLET BY MOUTH AT 3 PM 12/04/2013 12/09/2014 Inactive Voltaren 1 % topical gel RxNorm: 606364 4 Gram(s) TOP QID 11/2703/26/2014 Inactive Cartia XT 180 mg capsule,extended release RxNorm: 833319 1 Capsule(s) PO daily TAKE 1 CAPSULE BY MOUTH AT BEDTIME ..TAKE THIS IN ADDITION TO 240 MG IN THE MORNING 11/27/2013 01/12/2015 Inactive Lasix 20 mg tablet RxNorm: TABLET(S) PO TAKE 2 TABLETS BY MOUTH EVERY MORNING AND 1 TABLET BY MOUTH AT 3 PM 11/26/2013 02/19/2014 Inactive colestipol 1 gram tablet RxNorm: 0955748 1 Tablet(s) PO BID TAKE 1 TABLET BY MOUTH TWICE DAILY 11/26/2013 11/20/2014 Inactive cyclobenzaprine 10 mg tablet RxNorm: 415276 Tablet(s) PO TAKE 1 TABLET BY MOUTH EVERY 8 HOURS NEEDED 11/21/20132013 Inactive Diflucan 150 mg tablet RxNorm: 754208 1 Tablet(s) PO daily TAKE 1 TABLET BY MOUTH EVERY OTHER DAY FOR 8 DOSES 11/14/201306/2013 Inactive peak flow meter-inh assist dev kit RxNorm: 1 dose Miscellaneous PRN 11/14/2013 10/27/2017 Inactive Effexor XR 37.5 mg capsule,extended release RxNorm: 704072 Capsule(s) PO TAKE 2 CAPSULES BY MOUTH EVERY MORNING AND 1 CAPSULE BY MOUTH EVERY NIGHT AT BEDTIME 11/04/2013 12/03/2013 Inactive Anusol-HC 25 mg suppository RxNorm: 2144251 1 Suppository RTL PRN one per rectum as needed, up to twice daily for hemorrhoid, no more than 7 days in a row 10/23/2013 10/22/2013 Inactive Anusol-HC 25 mg suppository RxNorm: 9420399 1 Suppository RTL PRN one per rectum as needed, up to twice daily for hemorrhoid, no more than 7 days in a row 10/23/2013 01/09/2014 Inactive Activella 0.5 mg-0.1 mg tablet RxNorm: 3192225 Tablet(s) PO TAKE 1 TABLET BY MOUTH DAILY FOR MENOPAUSAL SYMPTOM 10/21/2013 01/07/2014 Inactive cyclobenzaprine 10 mg tablet RxNorm: 120374 Tablet(s) PO TAKE 1 TABLET BY MOUTH EVERY 8 HOURS NEEDED 10/21/20132013 Inactive Lasix 20 mg tablet RxNorm: 150944 Tablet(s) PO TAKE 2 TABLETS BY MOUTH EVERY MORNING AND 1 TABLET BY MOUTH AT 3 PM 10/17/2013 02/25/2016 Inactive Bactroban 2 % topical ointment RxNorm: 533103 1 Application TOP BID 10/10/2013 11/06/2013 Inactive Zofran 4 mg tablet RxNorm: 380316 1 Tablet(s) PO Q4-6H 201303/20/2014 Inactive Bactroban 2 % topical ointment RxNorm: 778443 1 Application TOP BID 09/27/2013 10/09/2013 Inactive hydrocodone 5 mg-acetaminophen 325 mg tablet RxNorm: 262823 Tablet(s) PO TAKE 1 TABLET BY MOUTH EVERY 6 HOURS NEEDED FOR PAIN 09/26/2013 12/11/2013 Inactive ( Appended: Controlled substance eRx refill - RxReferenceNumber: [id number]|1|0|1 ) hydrocodone 5 mg-acetaminophen 325 mg tablet RxNorm: 230847 1 Tablet(s) PO Q6 PRN 09/26/2013 01/24/2014 Inactive cyclobenzaprine 10 mg tablet RxNorm: 207006 Tablet(s) PO TAKE 1 TABLET BY MOUTH EVERY 8 HOURS NEEDED 09/16/2013 No Stop Date Active omeprazole 20 mg capsule,delayed release RxNorm: 081856 Capsule(s) PO TAKE 1 CAPSULE BY MOUTH TWICE DAILY 09/02/2013 Inactive Lasix 20 mg tablet RxNorm: 448419 Tablet(s) PO TAKE 2 TABLETS BY MOUTH EVERY MORNING AND 1 TABLET BY MOUTH AT 3 PM 09/02/2013 04/10/2016 Inactive Diflucan 150 mg tablet RxNorm: 952042 Tablet(s) PO TAKE 1 TABLET BY MOUTH EVERY OTHER DAY FOR 8 DOSES 08/29/20132013 Inactive Effexor XR 37.5 mg capsule,extended release RxNorm: 602432 Capsule(s) PO TAKE 2 CAPSULES BY MOUTH EVERY MORNING AND 1 CAPSULE BY MOUTH EVERY NIGHT AT BEDTIME 08/29/2013 11/03/2013 Inactive diltiazem ER (XR/XT) 240 mg capsule,extended release, controlled RxNorm: 818380 Capsule(s) PO TAKE 1 CAPSULE BY MOUTH EVERY DAY 201312/03/2013 Inactive Xanax 0.5 mg tablet RxNorm: 886195 1 Tablet(s) PO TID PRN 11/2013 No Stop Date Active (Appended: Controlled substance eRx refill - RxReferenceNumber: [id number]| [id number]|1|0|1) colestipol 1 gram tablet RxNorm: 7138443 Tablet(s) PO TAKE 1 TABLET BY MOUTH TWICE DAILY 08/26/2013 11/25/2013 Inactive Victoza 3-Babak 0.6 mg/0.1 mL (18 mg/3 mL) subcutaneous pen injector RxNorm: 704509 1.2 Milligram(s) SQ daily 0.6 x 2 weeks then increase to 1.2mg daily 08/19/2013 12/16/2013 Inactive Synthroid 88 mcg tablet RxNorm: 293236 1 Tablet(s) PO daily 12/09/2013 Inactive Lasix 20 mg tablet RxNorm: Tablet(s) PO TAKE 2 TABLETS BY MOUTH EVERY MORNING AND 2 TABLETS BY MOUTH AT 3 PM 08/12/2013 10/18/2016 Inactive Xanax 0.5 mg tablet RxNorm: 778455 1 Tablet(s) PO TID PRN No Stop Date Active (Appended: Controlled substance [id number]| 714243|1|0|1) Lasix 20 mg tablet RxNorm: Tablet(s) PO TAKE 2 TABLETS BY MOUTH EVERY MORNING AND 1 TABLET BY MOUTH AT 3 PM 08/07/2013 08/11/2013 Inactive Voltaren 1 % topical gel RxNorm: 186358 4 Gram(s) TOP QID 08/0111/26/2013 Inactive Zyvox 600 mg tablet RxNorm: 272605 1 Tablet(s) PO BID 201307/27/2013 Inactive please call the office is this is too expensive for the pt Zyvox 600 mg tablet RxNorm: 937618 1 Tablet(s) PO BID 201307/17/2013 Inactive hydrocodone 5 mg-acetaminophen 325 mg tablet RxNorm: 0379854 1 Tablet(s) PO Q6 PRN 07/15/2013 09/26/2013 Inactive Zofran 4 mg tablet RxNorm: 733909 1 Tablet(s) PO Q4-6H 201310/02/2013 Inactive Lasix 20 mg tablet RxNorm: Tablet(s) PO TAKE 2 TABLETS BY MOUTH EVERY MORNING AND 1 TABLET BY MOUTH AT 3 PM 07/11/2013 10/18/2016 Inactive cyclobenzaprine 10 mg tablet RxNorm: 526111 1 Tablet(s) PO Q8 PRN 06/27/2013 08/25/2013 Inactive gabapentin 600 mg tablet RxNorm: 477084 1.5 Tablet(s) PO TID 01/02/2014 Inactive Lasix 20 mg tablet RxNorm: Tablet(s) PO TAKE 2 TABLETS BY MOUTH EVERY MORNING AND 1 TABLET BY MOUTH AT 3 PM 06/17/2013 07/10/2013 Inactive hydrocodone 5 mg-acetaminophen 325 mg tablet RxNorm: 141838 1 Tablet(s) PO Q6 PRN 06/10/2013 07/14/2013 Inactive hydrocortisone 2.5 % rectal cream RxNorm: 425408 1 Suppository RTL BID PRN 06/10/2013 06/29/2013 Inactive Flexeril 10 mg tablet RxNorm: 619792 1 Tablet(s) PO Q8 PRN 06/0406/26/2013 Inactive diltiazem ER (XR/XT) 240 mg capsule,extended release, controlled RxNorm: 497974 Capsule(s) PO TAKE 1 CAPSULE BY MOUTH EVERY DAY 201310/26/2017 Inactive omeprazole 20 mg capsule,delayed release RxNorm: 566539 Capsule(s) PO TAKE 1 CAPSULE BY MOUTH TWICE DAILY 05/24/2013 Inactive colestipol 1 gram tablet RxNorm: 5838158 Tablet(s) PO TAKE 1 TABLET BY MOUTH TWICE DAILY 05/23/2013 04/21/2016 Inactive Januvia 100 mg tablet RxNorm: 482774 1 Tablet(s) PO daily 201308/18/2013 Inactive Activella 0.5 mg-0.1 mg tablet RxNorm: 936393 Tablet(s) PO TAKE 1 TABLET BY MOUTH DAILY FOR MENOPAUSAL SYMPTOM 05/17/2013 Inactive Xanax 0.5 mg tablet RxNorm: 408888 1 Tablet(s) PO TID PRN 08/06/2013 Inactive (Appended: Controlled substance eRx refill - RxReferenceNumber: [id number]| 077001|1|0|1) Kenalog 40 mg/mL suspension for injection RxNorm: 0034447 Milliliter(s) Inj 05/07/2013 05/07/2013 Inactive levofloxacin 500 mg tablet RxNorm: 681585 1 Tablet(s) PO daily pt to take 500mg on day#1, 3, 5, 7 and 1/2 tablet on days 2, 4, 6, and 8 05/0705/14/2013 Inactive Lyrica 50 mg capsule RxNorm: 784946 1 Capsule(s) PO TID 201206/26/2013 Inactive hydrocodone 5 mg-acetaminophen 500 mg tablet RxNorm: 783984 1 Tablet(s) PO Q6 PRN 04/22/2013 06/09/2013 Inactive Zofran 4 mg tablet RxNorm: 141981 1 Tablet(s) PO Q4-6H 201207/14/2013 Inactive Zofran 4 mg tablet RxNorm: 262959 1 Tablet(s) PO Q6 PRN 04/0404/08/2013 Inactive hydrocodone 5 mg-acetaminophen 500 mg tablet RxNorm: 651999 1 Tablet(s) PO Q6 PRN 03/21/2013 04/21/2013 Inactive Diflucan 150 mg tablet RxNorm: 760895 1 Tablet(s) PO every other day 1 pill po every other day x 8 doses 03/19/201306/26 Inactive potassium chloride ER 10 mEq tablet,extended release RxNorm: 632995 1 Tablet(s) PO QDAY PRN take with lasix 03/07/201302/2014 Inactive potassium chloride ER 10 mEq tablet,extended release RxNorm: 815774 1 Tablet(s) PO QDAY PRN take with lasix 03/04/2013 Inactive fluconazole 150 mg tablet RxNorm: 855052 1 Tablet(s) PO daily 03/01/2013 02/28/2013 Inactive fluconazole 150 mg tablet RxNorm: 961521 1 Tablet(s) PO daily 03/01/2013 03/05/2013 Inactive Combivent 18 mcg-103 mcg/actuation Aerosol Inhaler RxNorm: 039380 2 Puff(s) INH QID 02/12/2013 02/12/2013 Inactive Zofran 4 mg tablet RxNorm: 654688 1 Tablet(s) PO Q6 PRN 02/1104/03/2013 Inactive Lasix 20 mg tablet RxNorm: 688600 1 Tablet(s) PO BID one pill in morning and one pill in afternoon (3pm) 02/04/2013 Inactive Xopenex HFA 45 mcg/actuation Aerosol Inhaler RxNorm: 490119 2 INH QID 01/29/2013 09/21/2015 Inactive Effexor XR 37.5 mg capsule,extended release RxNorm: 843611 2 q am and 1 at hs Capsule(s) PO TAKE 2 CAPSULES BY MOUTH EVERY MORNING AND 1 CAPSULE EVERY NIGHT AT BEDTIME 01/29/2013 02/15/2016 Inactive fluconazole 150 mg tablet RxNorm: 954715 1 Tablet(s) PO daily 01/29/2013 02/02/2013 Inactive hydrocodone 5 mg-acetaminophen 500 mg tablet RxNorm: 840571 1 Tablet(s) PO Q6 PRN 01/29/2013 03/20/2013 Inactive Effexor XR 37.5 mg capsule,extended release RxNorm: 497786 Capsule(s) PO 01/29/2013 08/28/2013 Inactive TAKE 2 CAPSULES BY MOUTH EVERY MORNING AND 1 CAPSULE EVERY NIGHT AT BEDTIME doxycycline hyclate 100 mg tablet RxNorm: 932484 1 Tablet(s) PO BID 01/01/2013 01/10/2013 Inactive doxycycline hyclate 100 mg tablet RxNorm: 980084 1 Tablet(s) PO BID 01/01/2013 12/31/2012 Inactive Synthroid 75 mcg tablet RxNorm: 919999 1 Tablet(s) PO daily 06/29/2013 Inactive Synthroid 75 mcg tablet RxNorm: 826329 1 Tablet(s) PO daily 12/31/2012 Inactive Xanax 0.5 mg tablet RxNorm: 087829 Tablet(s) PO TAKE 1/2 TO 1 TABLET BY MOUTH EVERY 8 HOURS NEEDED FOR ANXIETY 12/27/2012 05/06/2013 Inactive (Appended: Controlled substance eRx refill - RxReferenceNumber: [id number]|1|0|1) Lasix 20 mg tablet RxNorm: 121488 1 Tablet(s) PO daily 201202/03/2013 Inactive Santyl 250 unit/gram Topical Ointment RxNorm: 8697184 1 Application TOP daily 12/20/2012 12/29/2012 Inactive Levaquin 500 mg tablet RxNorm: 752123 1 Tablet(s) PO daily 05/201212/26/2012 Inactive acyclovir 400 mg tablet RxNorm: 662668 1 Tablet(s) PO TID 12/0312/09/2012 Inactive acyclovir 400 mg tablet RxNorm: 567030 1 Tablet(s) PO TID 12/0312/02/2012 Inactive fluconazole 150 mg tablet RxNorm: 251499 1 Tablet(s) PO daily 11/26/2012 11/30/2012 Inactive Effexor XR 37.5 mg capsule,extended release RxNorm: 509609 Capsule(s) PO TAKE 2 CAPSULES BY MOUTH EVERY MORNING AND 1 CAPSULE EVERY NIGHT AT BEDTIME 11/14/2012 01/28/2013 Inactive albuterol sulfate 1.25 mg/3 mL solution for nebulization RxNorm: 987953 3 Milliliter(s) INH TID 10/29/20122012 Inactive 1 box Cartia XT 180 mg capsule,extended release RxNorm: 013227 1 Capsule(s) PO daily TAKE 1 CAPSULE BY MOUTH AT BEDTIME ..TAKE THIS IN ADDITION TO 240 MG IN THE MORNING 10/29/2012 11/26/2013 Inactive acyclovir 800 mg tablet RxNorm: 017630 1 Tablet(s) PO BID 10/2911/04/2012 Inactive Diflucan 150 mg tablet RxNorm: 675499 1 Tablet(s) PO daily 10/14/2012 Inactive TAKE 1 TABLET BY MOUTH EVERY DAY Toprol XL 100 mg tablet,extended release RxNorm: 916207 1 Tablet(s) PO BID 10/11/2012 09/05/2013 Inactive Zithromax Z-Babak 250 mg tablet RxNorm: 290458 Tablet(s) PO UD as directed. 1 refill , please take back to back 10/05/2012 No Stop Date Active Kenalog 40 mg/mL Susp for Injection RxNorm: 7756479 1 Milliliter(s) Inj QID 09/21/2012 05/07/2013 Inactive fluconazole 150 mg tablet RxNorm: 618754 1 Tablet(s) PO every other day x 5 doses 09/12/2012 11/25/2012 Inactive levothyroxine 50 mcg tablet RxNorm: 773747 1 Tablet(s) PO daily 09/06/2012 12/31/2012 Inactive atorvastatin 40 mg tablet RxNorm: 408764 1 Tablet(s) PO daily 09/06/2012 08/31/2013 Inactive TAKE 1 TABLET BY MOUTH DAILY (THIS IS AN INCREASE IN DOSAGE) Xanax 0.5 mg tablet RxNorm: 609440 Tablet(s) PO TAKE 1/2 TO 1 TABLET BY MOUTH EVERY 8 HOURS NEEDED FOR ANXIETY 08/27/2012 12/26/2012 Inactive (Appended: Controlled substance eRx refill - RxReferenceNumber: [id number]|1|0|1) Zofran 4 mg tablet RxNorm: 581937 1 Tablet(s) PO Q6 PRN 08/1302/10/2013 Inactive Cipro 500 mg tablet RxNorm: 053709 1 Tablet(s) PO BID 201208/07/2012 Inactive Cipro 500 mg tablet RxNorm: 800112 1 Tablet(s) PO BID 201208/12/2012 Inactive Flagyl 500 mg tablet RxNorm: 232670 1 Tablet(s) PO TID 201208/12/2012 Inactive cefdinir 300 mg capsule RxNorm: 759669 1 Capsule(s) PO BID 08/201207/29/2012 Inactive nystatin 100,000 unit/mL Oral Susp RxNorm: 278621 6 Unit(s) PO QID 07/06/2012 07/15/2012 Inactive Kenalog 40 mg/mL Susp for Injection RxNorm: 9852961 1 Milliliter(s) Inj 07/06/2012 07/06/2012 Inactive Zithromax 500 mg tablet RxNorm: 1202204 1 Tablet(s) PO daily 07/10/2012 Inactive metformin 850 mg tablet RxNorm: 544806 1/2 Tablet(s) PO TID 09/201208/24/2012 Inactive TAKE 1 TABLET BY MOUTH IN THE MORNING, 1/2 TABLET AT NOON, AND 1 TABLET IN THE EVENING Lyrica 50 mg capsule RxNorm: 673319 1 Capsule(s) PO TID 201206/25/2012 Inactive Diflucan 150 mg tablet RxNorm: 334986 1 Tablet(s) PO daily 05/201206/25/2012 Inactive TAKE 1 TABLET BY MOUTH EVERY DAY Levaquin 500 mg tablet RxNorm: 615022 1 Tablet(s) PO daily 06/19/2012 Inactive Pneumovax 23 25 mcg/0.5 mL Injection RxNorm: 626295 1/2 Milliliter(s) Inj 06/07/2012 06/07/2012 Inactive metformin 850 mg tablet RxNorm: 080036 1/2 Tablet(s) PO BID 06/25/2012 Inactive TAKE 1 TABLET BY MOUTH IN THE MORNING, 1/2 TABLET AT NOON, AND 1 TABLET IN THE EVENING cefdinir 300 mg capsule RxNorm: 992362 1 Capsule(s) PO BID 02/201305/30/2012 Inactive cefdinir 300 mg capsule RxNorm: 127297 1 Capsule(s) PO BID 02/201306/06/2012 Inactive prednisone 10 mg tablets in a dose pack RxNorm: 950942 Tablet(s) PO UD 6-5-4-3-2- 1 05/31/2012 05/06/2013 Inactive Cipro 500 mg tablet RxNorm: 053497 1 Tablet(s) PO BID 201206/03/2012 Inactive Xanax 0.5 mg tablet RxNorm: 787917 Tablet(s) PO TAKE 1/2 TO 1 TABLET BY MOUTH EVERY 8 HOURS NEEDED FOR ANXIETY 05/28/2012 08/27/2012 Inactive (Appended: Controlled substance eRx refill - RxReferenceNumber: [id number]|1|0|1) Cartia XT 180 mg capsule,extended release RxNorm: 383575 Capsule(s) PO TAKE 1 CAPSULE BY MOUTH AT BEDTIME ..TAKE THIS IN ADDITION TO 240 MG IN THE MORNING 05/24/2012 10/28/2012 Inactive Diflucan 150 mg tablet RxNorm: 948177 1 Tablet(s) PO daily 06/201205/26/2012 Inactive TAKE 1 TABLET BY MOUTH EVERY DAY Cartia XT 240 mg capsule,extended release RxNorm: 265056 1 Capsule(s) PO [facility] 05/23/2012 09/06/2012 Inactive in addition to 180mg q pm omeprazole 20 mg capsule,delayed release RxNorm: 565378 Capsule(s) PO TAKE 1 CAPSULE BY MOUTH TWICE DAILY 05/21/2012 Inactive diltiazem ER (XR/XT) 240 mg capsule,extended release, controlled RxNorm: 944008 1 Capsule(s) PO daily TAKE ONE CAPSULE BY MOUTH EVERY DAY 05/21/2012 05/30/2013 Inactive Toprol XL 25 mg tablet,extended release RxNorm: 910376 1 Tablet(s) PO QPM take with 50mg (1/2 tab of 100mg) each evening. Continue 100mg in the morning. 05/17/2012 05/27/2012 Inactive Activella 0.5 mg-0.1 mg tablet RxNorm: 6460220 Tablet(s) PO TAKE 1 TABLET BY MOUTH DAILY FOR MENOPAUSAL SYMPTOM 05/09/2012 05/16/2013 Inactive colestipol 1 gram tablet RxNorm: 3397334 Tablet(s) PO TAKE 1 TABLET BY MOUTH TWICE DAILY 05/08/2012 04/21/2016 Inactive Kenalog 40 mg/mL Susp for Injection RxNorm: 7680673 1 Milliliter(s) Inj 05/02/2012 05/02/2012 Inactive Xanax 0.5 mg tablet RxNorm: 290979 Tablet(s) PO 04/16/2012 05/28/2012 Inactive TAKE 1/2 TO 1 TABLET BY MOUTH EVERY 8 HOURS NEEDED FOR ANXIETY (Appended: Controlled substance eRx refill - RxReferenceNumber: [id number]|0|1) Diflucan 150 mg tablet RxNorm: 268816 1 Tablet(s) PO daily 05/22/2012 Inactive TAKE 1 TABLET BY MOUTH EVERY DAY Cipro 500 mg tablet RxNorm: 846257 1 Tablet(s) PO BID 201104/19/2012 Inactive Zithromax Z-Babak 250 mg tablet RxNorm: 785638 Tablet(s) PO UD 05/30/2012 Inactive metformin 850 mg tablet RxNorm: 276397 Tablet(s) PO take one pill by mouth in AM, 1/2 at noon, and 1 pill in the evening. 03/16/2012 06/06/2012 Inactive TAKE 1 TABLET BY MOUTH IN THE MORNING, 1/2 TABLET AT NOON, AND 1 TABLET IN THE EVENING Xanax 0.5 mg tablet RxNorm: 107789 Tablet(s) PO 03/05/2012 04/15/2012 Inactive TAKE 1/2 TO 1 TABLET BY MOUTH EVERY 8 HOURS NEEDED FOR ANXIETY (Appended: Controlled substance eRx refill - RxReferenceNumber: [id number]|0|1) potassium chloride ER 10 mEq tablet,extended release RxNorm: 932484 1 Tablet(s) PO QDAY PRN take with lasix 03/05/201204/2013 Inactive potassium chloride ER 10 mEq tablet,extended release RxNorm: 231346 1 Tablet(s) PO QDAY PRN take with lasix 02/28/2012 Inactive Lasix 20 mg tablet RxNorm: 180357 Tablet(s) PO QDAY PRN 02/2708/25/2012 Inactive doxycycline hyclate 100 mg capsule RxNorm: 868443 1 Capsule(s) PO BID 02/27/2012 03/04/2012 Inactive Effexor XR 37.5 mg capsule,extended release RxNorm: 940798 Capsule(s) PO 02/26/2012 01/28/2013 Inactive TAKE 2 CAPSULES BY MOUTH EVERY MORNING AND 1 CAPSULE EVERY NIGHT AT BEDTIME Lomotil 2.5 mg-0.025 mg tablet RxNorm: 0753757 Tablet(s) PO 07/201103/05/2012 Inactive 1 after each loose bm limit 4 per day doxycycline hyclate 100 mg capsule RxNorm: 998239 1 Capsule(s) PO BID 02/15/2012 02/21/2012 Inactive Diflucan 150 mg tablet RxNorm: 082470 Tablet(s) PO daily 201102/21/2012 Inactive TAKE 1 TABLET BY MOUTH EVERY DAY colestipol,micronized 1 gram tablet RxNorm: 1686352 Tablet(s) PO 02/06/2012 04/21/2016 Inactive TAKE 1 TABLET BY MOUTH TWICE DAILY Effexor XR 37.5 mg capsule,extended release RxNorm: 911159 Capsule(s) PO 02/06/2012 02/16/2016 Inactive TAKE 2 CAPSULES BY MOUTH EVERY MORNING AND 1 CAPSULE EVERY NIGHT AT BEDTIME potassium chloride ER 10 mEq tablet,extended release RxNorm: 678055 1 Tablet(s) PO QDAY PRN take with lasix 02/01/201212/2011 Inactive Levaquin 500 mg tablet RxNorm: 439303 1 Tablet(s) PO daily 04/201202/07/2012 Inactive Diflucan 150 mg tablet RxNorm: 556777 Tablet(s) PO 01/27/2012 02/14/2012 Inactive TAKE 1 TABLET BY MOUTH EVERY DAY Effexor XR 37.5 mg capsule,extended release RxNorm: 606643 Capsule(s) PO 01/05/2012 02/05/2012 Inactive TAKE 2 CAPSULES BY MOUTH EVERY MORNING , AND 1 CAPSULE BY MOUTH EVERY NIGHT AT BEDTIME Effexor XR 37.5 mg capsule,extended release RxNorm: 471703 Capsule(s) PO 12/29/2011 01/04/2012 Inactive TAKE 2 CAPSULES BY MOUTH EVERY MORNING , AND 1 CAPSULE BY MOUTH EVERY NIGHT AT BEDTIME Diflucan 150 mg tablet RxNorm: 669167 Tablet(s) PO 12/29/2011 04/09/2012 Inactive TAKE 1 TABLET BY MOUTH EVERY DAY Cipro 500 mg tablet RxNorm: 993613 1 Tablet(s) PO BID 201101/07/2012 Inactive Toprol XL 100 mg tablet,extended release RxNorm: 023507 Tablet(s) PO as doctor directed one tab in am and 1/2 at night 11/30/2011 10/10/2012 Inactive Phenergan 25 mg/mL Injection RxNorm: 443761 Milliliter(s) Inj 11/30/2011 11/30/2011 Inactive Toprol XL 100 mg 24 hr Tab RxNorm: 047872 1.5 Tablet(s) PO as doctor directed one tab in am and 1/2 at night 11/17/201102/2012 Inactive Xopenex HFA 45 mcg/actuation Aerosol Inhaler RxNorm: 928243 2 INH QID 11/08/2011 12/01/2012 Inactive Effexor XR 150 mg 24 hr Cap RxNorm: 488521 1 Capsule(s) PO daily 10/24/2011 01/04/2012 Inactive Xanax 0.5 mg tablet RxNorm: 026975 1/2-1 Tablet(s) PO Q8 PRN 10/20/2011 03/05/2012 Inactive levothyroxine 25 mcg tablet RxNorm: 222410 Tablet(s) PO 201109/05/2012 Inactive TAKE 1 TABLET BY MOUTH DAILY Xanax 0.5 mg Tab RxNorm: 331389 1/2-1 Tablet(s) PO Q8 PRN 09/26/2011 10/19/2011 Inactive potassium chloride ER 10 mEq Tab RxNorm: 504252 1 Tablet(s) PO daily 09/20/2011 09/24/2011 Inactive Lasix 20 mg Tab RxNorm : 580889 1 Tablet(s) PO daily 09/20/2011 09/24/2011 Inactive Xanax 0.5 mg Tab RxNorm: 906380 1/2-1 Tablet(s) PO Q8 PRN 09/12/2011 09/25/2011 Inactive Xanax 0.5 mg Tab RxNorm: 164137 1/2-1 Tablet(s) PO Q8 PRN 08/24/2011 09/11/2011 Inactive Lipitor 20 mg tablet RxNorm: 708207 Tablet(s) PO 08/22/2011 09/05/2012 Inactive TAKE 1 TABLET BY MOUTH DAILY (THIS IS AN INCREASE IN DOSAGE) Cipro 500 mg Tab RxNorm: 152253 1 Tablet(s) PO BID 201110/24/2011 Inactive Flagyl 500 mg Tab RxNorm: 869599 1 Tablet(s) PO TID 201110/24/2011 Inactive Diflucan 150 mg Tab RxNorm: 352486 1 Tablet(s) PO daily 201110/24/2011 Inactive Kenalog 40 mg/mL Susp for Injection RxNorm: 2429493 1 Milliliter(s) Inj 08/01/2011 10/24/2011 Inactive FreeStyle Lancets RxNorm: 1 test Miscellaneous TID 201107/08/2014 Inactive dispense quantity sufficient for three times daily testing for diabetes FreeStyle Test strips RxNorm: 1 Miscellaneous BID 07/21/2011 08/13/2012 Inactive please give lancets alsodx 250.02 Xanax 0.25 mg Tab RxNorm: 833522 1 Tablet(s) PO Q8 PRN 07/06 No Stop Date Active colestipol 1 gram Tab RxNorm: 8797435 Tablet(s) PO 07/04/2011 04/21/2016 Inactive TAKE 1 TABLET BY MOUTH TWICE DAILY DIRECTED colestipol 1 gram tablet RxNorm: 2714352 1 Tablet(s) PO BID 07/03/2011 Inactive Cartia XT 180 mg capsule,extended release RxNorm: 697923 1 Capsule(s) PO QHS 06/30/2011 11/16/2011 Inactive in addition to 240mg q am venlafaxine 37.5 mg Tab RxNorm: 892082 1 Tablet(s) PO BID 06/2406/29/2011 Inactive prednisone 5 mg Tab RxNorm: 229875 Tablet(s) PO UD 2011 10/24/2011 Inactive six day taper #21 Lyrica 50 mg capsule RxNorm: 210962 1 Capsule(s) PO TID 201108/18/2011 Inactive Diflucan 150 mg tablet RxNorm: 972999 1 Tablet(s) PO daily 06/24/2011 Inactive levofloxacin 500 mg Tab RxNorm: 971483 1 Tablet(s) PO daily 08/15/2011 Inactive azithromycin 250 mg Tab RxNorm: 008082 PO 05/23/2011 06/20/2011 Inactive omeprazole 20 mg capsule,delayed release RxNorm: 600105 Capsule(s) PO 05/10/2011 05/20/2012 Inactive TAKE 1 CAPSULE BY MOUTH TWICE DAILY;Patient requests 90 day supply diltiazem ER (XR/XT) 240 mg capsule,extended release, controlled RxNorm: 280528 Capsule(s) PO 04/19/2011 05/21/2012 Inactive TAKE 1 CAPSULE BY MOUTH EVERY MORNING;Patient requests 90 day supply Kenalog 40 mg/mL Susp for Injection RxNorm: 0959687 1 Milliliter(s) Inj 04/18/2011 06/20/2011 Inactive clindamycin 300 mg Cap RxNorm: 306399 1 Capsule(s) PO BID 04/1806/20/2011 Inactive lisinopril-hydrochlorothiazide 20 mg-12.5 mg Tab RxNorm: 045517 2 Tablet(s) PO daily 04/18/2011 10/24/2011 Inactive fluconazole 150 mg Tab RxNorm: 796939 1 Tablet(s) PO daily 07/201006/20/2011 Inactive Activella 0.5 mg-0.1 mg tablet RxNorm: 5903130 Tablet(s) PO 05/201005/08/2012 Inactive TAKE 1 TABLET BY MOUTH DAILY FOR MENOPAUSAL SYMPTOM diltiazem ER (XR/XT) 240 mg Continuous Release Cap RxNorm: 195607 1 Capsule(s) PO daily 03/17/2011 03/16/2011 Inactive diltiazem ER (XR/XT) 240 mg Continuous Release Cap RxNorm: 868105 Capsule(s) PO 03/17/2011 06/20/2011 Inactive TAKE 1 CAPSULE BY MOUTH EVERY MORNING metformin 850 mg tablet RxNorm: 795255 1 Tablet(s) PO as doctor directed take one pill by mouth in AM, 1/2 at noon, and 1 pill in the evening. 01/21/2011 04/20/2011 Inactive Xopenex 1.25 mg/3 mL solution for nebulization RxNorm: 965384 3 Milliliter(s) INH Q6 PRN No Start Date Active Lomotil 2.5 mg-0.025 mg tablet RxNorm: 5123898 Tablet(s) PO No Start Date 02/21/2012 Inactive 1 after each loose bm limit 4 per day Novolog Flexpen U-100 Insulin aspart 100 unit/mL subcutaneous RxNorm: 4773278 10 Unit(s) SQ AC No Start Date 10/26 Inactive with sliding scale-Dr Yanna Judd FlexTouch U-100 100 unit/mL (3 mL) subcutaneous insulin pen RxNorm: 6752486 40 Unit(s) SQ daily No Start Date Inactive gabapentin 600 mg tablet RxNorm: 716028 1 Tablet(s) PO TID No Start Date 06/26/2013 Inactive Effexor XR 37.5 mg capsule,extended release RxNorm: 337551 1 Capsule(s) PO BID No Start Date 10/23/2011 Inactive Levemir FlexTouch 100 unit/mL (3 mL) subcutaneous insulin pen RxNorm: 641092 50 Unit(s) SQ BID No Start Date 04/24/2017 Inactive Combivent Respimat 20 mcg-100 mcg/actuation solution for inhalation RxNorm: 1459342 1 INH QID No Start Date 05/11/2014 Inactive Xanax 0.5 mg Tab RxNorm: 492801 1/2-1 Tablet(s) PO Q8 PRN No Start Date 08/23/2011 Inactive Xopenex HFA 45 mcg/actuation Aerosol Inhaler RxNorm: 528682 2 INH QID No Start Date 11/07/2011 Inactive promethazine 25 mg tablet RxNorm: 656560 1 Tablet(s) PO Q8 as needed No Start Date 08/12/2015 Inactive colestipol 1 gram Tab RxNorm: 8731251 1 Tablet(s) PO BID No Start Date 07/03/2011 Inactive Cartia XT 240 mg capsule,extended release RxNorm: 796540 1 Capsule(s) PO QAM No Start Date 05/22/2012 Inactive in addition to 180mg q pm Lipitor 20 mg Tab RxNorm: 569438 1 Tablet(s) PO daily No Start Date 08/21/2011 Inactive FreeStyle Test Strips RxNorm: 1 Miscellaneous BID No Start Date 07/20/2011 Inactive Shreeumary OttooStar U-300 Insulin 300 unit/mL (1.5 mL) subcutaneous pen RxNorm: 2784313 40 Unit(s) SQ BID No Start Date 10/26/2017 Inactive Diflucan 150 mg tablet RxNorm: 010504 1 Tablet(s) PO daily 1 pill po every other day x 8 doses No Start Date 03/18/2013 Inactive hydrocodone 5 mg-acetaminophen 500 mg tablet RxNorm: 876023 1 Tablet(s) PO Q6 PRN No Start Date 01/28/2013 Inactive Lasix 20 mg tablet RxNorm: 212143 Tablet(s) PO QDAY PRN No Start Date 02/27/2012 Inactive Promethazine VC 6.25 mg-5 mg/5 mL Syrup RxNorm: 7235797 1-2 PO Q6 PRN No Start Date 10/07/2013 Inactive promethazine 25 mg tablet RxNorm: 910907 1 Tablet(s) PO Q6 PRN No Start Date 02/09/2017 Inactive digoxin 125 mcg tablet RxNorm: 441152 1 Tablet(s) PO daily No Start Date 06/20/2017 Inactive Xanax 0.25 mg Tab RxNorm: 945313 1 Tablet(s) PO Q8 PRN No Start Date 07/05/2011 Inactive Diflucan 150 mg tablet RxNorm: 043614 1 Tablet(s) PO every other day x 4 doses No Start Date 04/09/2014 Inactive Carafate 100 mg/mL Oral Susp RxNorm: 829902 2 Teaspoon(s) PO daily No Start Date 10/24/2011 Inactive prednisone 5 mg Tab RxNorm: 311520 Tablet(s) PO UD No Start Date 06/22/2011 Inactive six day taper #21 Tessalon Perles 100 mg capsule RxNorm: 125192 2 Capsule(s) PO TID as needed No Start Date 05/16/2017 Inactive Bactroban 2 % topical ointment RxNorm: 164584 1 Application TOP BID No Start Date 09/26/2013 Inactive Phenergan 25 mg tablet RxNorm: 244253 1 Tablet(s) PO Q8 as needed nausea No Start Date 06/28/2015 Inactive flecainide 50 mg tablet RxNorm: 537288 1 Tablet(s) PO BID No Start Date 02/01/2016 Inactive Activella 0.5 mg-0.1 mg Tab RxNorm: 1913231 1 Tablet(s) PO daily No Start Date 03/21/2011 Inactive hydrocodone 10 mg-acetaminophen 325 mg tablet RxNorm: 686475 1 Tablet(s) PO Q6 as needed No Start Date 02/04/2016 Inactive lisinopril 20 mg Tab RxNorm: 053017 1 Tablet(s) PO daily No Start Date 06/20/2011 Inactive prednisone 10 mg tablets in a dose pack RxNorm: 544561 Tablet(s) PO UD 6-5-4-3-2- 1 No Start Date 05/30/2012 Inactive hydrocodone 7.5 mg-acetaminophen 325 mg tablet RxNorm: 957126 1 Tablet(s) PO Q6 PRN No Start Date 10/06/2013 Inactive hyoscyamine 0.125 mg sublingual tablet RxNorm: 5214340 1 Tablet(s) SL TID as needed No Start Date 05/16/2017 Inactive Cartia XT 180 mg 24 hr Cap RxNorm: 710840 1 Capsule(s) PO QHS No Start Date 06/29/2011 Inactive in addition to 240mg q am Zofran 4 mg tablet RxNorm: 005250 1 Tablet(s) PO Q6 PRN No Start Date 08/12/2012 Inactive omeprazole 20 mg Cap, Delayed Release RxNorm: 553544 1 Capsule(s) PO BID No Start Date 05/09/2011 Inactive venlafaxine 37.5 mg Tab RxNorm: 798143 1 Tablet(s) PO BID No Start Date 10/24/2011 Inactive Novolog Flexpen U-100 Insulin aspart 100 unit/mL subcutaneous RxNorm: 6102810 10 units with meals plus SSI in [...] 8u 301-325 Vesicare 10 mg tablet RxNorm: 097739 1 Tablet(s) PO daily No Start Date 09/28/2015 Inactive levothyroxine 25 mcg Tab RxNorm: 560868 1 Tablet(s) PO daily No Start Date 10/18/2011 Inactive Zithromax Z-Babak 250 mg tablet RxNorm: 340664 Tablet(s) PO UD No Start Date 04/01/2012 Inactive Januvia 100 mg tablet RxNorm: 973151 1 Tablet(s) PO daily No Start Date 05/22/2013 Inactive Lantus Solostar 100 unit/mL (3 mL) subcutaneous insulin pen RxNorm: 497340 Unit( s) SQ No Start Date 04/17/2017 Inactive 10 units q am and 50units at night fluconazole 150 mg tablet RxNorm: 154494 1 Tablet(s) PO every other day x 5 doses No Start Date 09/11/2012 Inactive Toprol XL 25 mg 24 hr Tab RxNorm: 059408 1 Tablet(s) PO daily No Start Date 11/16/2011 Inactive Medication Administered Medication Codes Instructions Start Date Status Kenalog 40 mg/mL suspension for injection RxNorm: 5505737 Milliliter 06/26/2015 No longer Active Kenalog 40 mg/mL suspension for injection RxNorm: 4612170 Milliliter 05/07/2013 No longer Active Kenalog 40 mg/mL Susp for Injection RxNorm: 8538561 1Milliliter 07/06/2012 No longer Active Pneumovax 23 25 mcg/0.5 mL Injection RxNorm: 990182 1/2Milliliter 06/07/2012 No longer Active Kenalog 40 mg/mL Susp for Injection RxNorm: 2036302 1Milliliter 05/02/2012 No longer Active Phenergan 25 mg/mL Injection RxNorm: 718957 Milliliter 11/30/2011 No longer Active Immunizations Vaccine [...] 26.2 pg 02/20/2018 Cbc With Differential Ord2 [place]% 5.7 % 02/20/2018 Cbc With Differential Ord2 [...] 1.61 K/ul 02/20/2018 Cbc With Differential Ord2 [place] ABS# 0.5 K/ul 02/20/2018 Cbc With Differential Ord2 Eos ABS# 0.1 K/ul 02/20/2018 Cbc With Differential Ord2 Baso ABS# 0.0 K/ul 02/20/2018 Comp Metabolic Nmi515 NA 134 mEq/L 02/20/2018 Comp Metabolic Mqk749 K 3.9 mEq/L 02/20/2018 Comp Metabolic Jue685 CL 90 mEq/L 02/20/2018 Comp Metabolic Mrf591 CO2 32.0 mEq/L 02/20/2018 Comp Metabolic Xxu614 ANION GAP 16 02/20/2018 Comp Metabolic Grt648 GLUCOSE 287 mg/dL 02/20/2018 Comp Metabolic Dbk065 Creat 0.8 mg/dL 02/20/2018 Comp Metabolic Rdr324 eGFR 72 ml/min/1.73m2 02/20/2018 Comp Metabolic Sba502 BUN 13 mg/dL 02/20/2018 Comp Metabolic Ego561 B/C Ratio 15.5 Ratio 02/20/2018 Comp Metabolic Sjy646 CALCIUM 9.0 mg/dL 02/20/2018 Comp Metabolic Xpu317 ALK PHOS 120 U/L 02/20/2018 Comp Metabolic Vth153 AST(SGOT) 21 U/L 02/20/2018 Comp Metabolic Wpd154 ALT(SGPT) 17 U/L 02/20/2018 Comp Metabolic Drf731 BILI T 0.4 mg/dL 02/20/2018 Comp Metabolic Ajf115 ALBUMIN 3.8 g/dL 02/20/2018 Comp Metabolic Sfs793 TPRO 6.9 g/dL 02/20/2018 Comp Metabolic Czd547 GLOB 3.1 g/dL 02/20/2018 Comp Metabolic Hco768 A/G Ratio 1.3 Ratio 02/20/2018 Comp Metabolic Tqy939 Osmo 279 mOsmo 02/20/2018 Vitamin D 25 Oh Oco0043 VITAMIN D, 25 HYDROXY 26.48 ng/mL Digoxin Ord9 DIGOXIN 0.7 NG/ML 02/20/2018 Culture Urine [id number] URINE CULTURE SEE NOTES 12/01/2017 Urine Culture Ucult Complete >100,000 col/ml aerobic growth sent to ref lab 11/29/2017 Comp Metabolic Gtr057 NA 135 mEq/L 08/21/2017 Comp Metabolic Jfx370 K 4.6 mEq/L 08/21/2017 Comp Metabolic Wpk500 CL 92 mEq/L 08/21/2017 Comp Metabolic Egv932 CO2 32.0 mEq/L 08/21/2017 Comp Metabolic Tzw430 ANION GAP 16 08/21/2017 Comp Metabolic Hzh366 GLUCOSE 298 mg/dL 08/21/2017 Comp Metabolic Kxt531 Creat 1.1 mg/dL 08/21/2017 Comp Metabolic Gfm351 eGFR 54 ml/min/1.73m2 08/21/2017 Comp Metabolic Szj204 BUN 22 mg/dL 08/21/2017 Comp Metabolic Wch878 B/C Ratio 20.6 Ratio 08/21/2017 Comp Metabolic Jxl299 CALCIUM 9.3 mg/dL 08/21/2017 Comp Metabolic Oii950 ALK PHOS 145 U/L 08/21/2017 Comp Metabolic Dqa425 AST(SGOT) 31 U/L 08/21/2017 Comp Metabolic Pud459 ALT(SGPT) 19 U/L 08/21/2017 Comp Metabolic Aai775 BILI T 0.3 mg/dL 08/21/2017 Comp Metabolic Byy824 ALBUMIN 3.8 g/dL 08/21/2017 Comp Metabolic Uoc679 TPRO 7.1 g/dL 08/21/2017 Comp Metabolic Hko629 GLOB 3.3 g/dL 08/21/2017 Comp Metabolic Jih625 A/G Ratio 1.2 Ratio 08/21/2017 Comp Metabolic Tlk859 Osmo 285 mOsmo 08/21/2017 Cbc With Differential [...] 88.1 fl 08/18/2017 Cbc With Differential Ord2 [place]% 6.9 % 08/18/2017 Cbc With Differential Ord2 [...] 2.05 K/ul 08/18/2017 Cbc With Differential Ord2 [place] ABS# 0.7 K/ul 08/18/2017 Cbc With Differential Ord2 Eos ABS# 0.3 K/ul 08/18/2017 Cbc With Differential Ord2 Baso ABS# 0.0 K/ul 08/18/2017 %Hba1C Nib252 % HbA1c 06827-4 11.5 % 06/13/2017 %Hba1C Apz550 Gluc Ave 283 mg/dL 06/13/2017 Cbc With [...] 20.0 % 03/27/2017 Cbc With Differential Ord2 [place]% 7.2 % 03/27/2017 Cbc With Differential Ord2 [...] 2.11 K/ul 03/27/2017 Cbc With Differential Ord2 [place] ABS# 0.8 K/ul 03/27/2017 Cbc With Differential Ord2 Eos ABS# 0.2 K/ul 03/27/2017 Cbc With Differential Ord2 Baso ABS# 0.0 K/ul 03/27/2017 Digoxin Ord9 DIGOXIN 0.5 NG/ML 03/27/2017 Comp Metabolic Llr071 NA 136 mEq/L 03/27/2017 Comp Metabolic Uft832 K 4.1 mEq/L 03/27/2017 Comp Metabolic Hkv822 CL 90 mEq/L 03/27/2017 Comp Metabolic Fbk996 CO2 34.0 mEq/L 03/27/2017 Comp Metabolic Fdo248 ANION GAP 16 03/27/2017 Comp Metabolic Cks476 GLUCOSE 325 mg/dL 03/27/2017 Comp Metabolic Zlr839 Creat 1.0 mg/dL 03/27/2017 Comp Metabolic Qpx286 eGFR 62 ml/min/1.73m2 03/27/2017 Comp Metabolic Hml026 BUN 15 mg/dL 03/27/2017 Comp Metabolic Wyo273 B/C Ratio 15.8 Ratio 03/27/2017 Comp Metabolic Qbp399 CALCIUM 9.5 mg/dL 03/27/2017 Comp Metabolic Owk838 ALK PHOS 159 U/L 03/27/2017 Comp Metabolic Hpr682 AST(SGOT) 57 U/L 03/27/2017 Comp Metabolic Slg076 ALT(SGPT) 32 U/L 03/27/2017 Comp Metabolic Sbw290 BILI T 0.4 mg/dL 03/27/2017 Comp Metabolic Twg597 ALBUMIN 4.3 g/dL 03/27/2017 Comp Metabolic Swh586 TPRO 7.3 g/dL 03/27/2017 Comp Metabolic Tuw381 GLOB 3.0 g/dL 03/27/2017 Comp Metabolic Gvp038 A/G Ratio 1.4 Ratio 03/27/2017 Comp Metabolic Brl738 Osmo 285 mOsmo 03/27/2017 Magnesium Ord90 Mag 2.4 mg/dL 02/27/2017 Comp Metabolic Dwk349 NA 138 mEq/L 02/27/2017 Comp Metabolic Fcn102 K 4.2 mEq/L 02/27/2017 Comp Metabolic Tll338 CL 91 mEq/L 02/27/2017 Comp Metabolic Sxc139 CO2 36.0 mEq/L 02/27/2017 Comp Metabolic Ewh535 ANION GAP 15 02/27/2017 Comp Metabolic Ejx476 GLUCOSE 297 mg/dL 02/27/2017 Comp Metabolic Roa911 Creat 0.9 mg/dL 02/27/2017 Comp Metabolic Hsd871 eGFR 71 ml/min/1.73m2 02/27/2017 Comp Metabolic Oem003 BUN 12 mg/dL 02/27/2017 Comp Metabolic Tkt449 B/C Ratio 14.1 Ratio 02/27/2017 Comp Metabolic Mvr700 CALCIUM 9.0 mg/dL 02/27/2017 Comp Metabolic Jcx432 ALK PHOS 146 U/L 02/27/2017 Comp Metabolic Gpk660 AST(SGOT) 28 U/L 02/27/2017 Comp Metabolic Zzz393 ALT(SGPT) 12 U/L 02/27/2017 Comp Metabolic Spt169 BILI T 0.3 mg/dL 02/27/2017 Comp Metabolic Opv276 ALBUMIN 3.8 g/dL 02/27/2017 Comp Metabolic Vao026 TPRO 6.6 g/dL 02/27/2017 Comp Metabolic Hcb279 GLOB 2.8 g/dL 02/27/2017 Comp Metabolic Qyw174 A/G Ratio 1.3 Ratio 02/27/2017 Comp Metabolic Snt027 Osmo 286 mOsmo 02/27/2017 Digoxin Ord9 DIGOXIN <0.2 NG/ML 02/14/2017 Comp Metabolic Nni886 NA 138 mEq/L 02/14/2017 Comp Metabolic Jri435 K 3.5 mEq/L 02/14/2017 Comp Metabolic Uyb641 CL 95 mEq/L 02/14/2017 Comp Metabolic Nmg060 CO2 29.0 mEq/L 02/14/2017 Comp Metabolic Cui746 ANION GAP 18 02/14/2017 Comp Metabolic Dly560 GLUCOSE 254 mg/dL 02/14/2017 Comp Metabolic Tyh984 Creat 1.0 mg/dL 02/14/2017 Comp Metabolic Wrs219 eGFR 62 ml/min/1.73m2 02/14/2017 Comp Metabolic Ges091 BUN 14 mg/dL 02/14/2017 Comp Metabolic Jvj502 B/C Ratio 14.6 Ratio 02/14/2017 Comp Metabolic Bii208 CALCIUM 8.6 mg/dL 02/14/2017 Comp Metabolic Lzi435 ALK PHOS 155 U/L 02/14/2017 Comp Metabolic Eto962 AST(SGOT) 42 U/L 02/14/2017 Comp Metabolic Gcd298 ALT(SGPT) 28 U/L 02/14/2017 Comp Metabolic Pzg821 BILI T 0.3 mg/dL 02/14/2017 Comp Metabolic Rkn633 ALBUMIN 3.6 g/dL 02/14/2017 Comp Metabolic Jso090 TPRO 6.2 g/dL 02/14/2017 Comp Metabolic Ljr558 GLOB 2.6 g/dL 02/14/2017 Comp Metabolic Jti862 A/G Ratio 1.4 Ratio 02/14/2017 Comp Metabolic Xmw461 Osmo 285 mOsmo 02/14/2017 Vitamin D 25 Oh Zud6203 VITAMIN D, 25 HYDROXY 8.99 ng/mL Tsh [...] 28.0 pg 01/16/2017 Cbc With Differential Ord2 [place]% 7.3 % 01/16/2017 Cbc With Differential Ord2 [...] 1.42 K/ul 01/16/2017 Cbc With Differential Ord2 [place] ABS# 0.6 K/ul 01/16/2017 Cbc With Differential Ord2 Eos ABS# 0.1 K/ul 01/16/2017 Cbc With Differential Ord2 Baso ABS# 0.0 K/ul 01/16/2017 Sed Rate Ord21 ESR 33 mm/hr 01/16/2017 C-Reactive Protein Qnt Crqnt CRP 3.3 mg/dl 01/16/2017 Free T4 Sjj040 FREE T4 0.81 ng/dL 01/16/2017 %Hba1C Sfw390 % HbA1c 70130-3 12.4 % 01/16/2017 %Hba1C Owi396 Gluc Ave 309 mg/dL 01/16/2017 Comp Metabolic Oti744 NA 134 mEq/L 01/16/2017 Comp Metabolic Acn385 K 4.0 mEq/L 01/16/2017 Comp Metabolic Gip204 CL 89 mEq/L 01/16/2017 Comp Metabolic Xyk551 CO2 30.0 mEq/L 01/16/2017 Comp Metabolic Yof696 ANION GAP 19 01/16/2017 Comp Metabolic Oip110 GLUCOSE 496 Result Verified By Repeat Analysis mg/dL 01/16/2017 Comp Metabolic Rxq278 Creat 0.8 mg/dL 01/16/2017 Comp Metabolic Cog927 eGFR 73 ml/min/1.73m2 01/16/2017 Comp Metabolic Zfz576 BUN 13 mg/dL 01/16/2017 Comp Metabolic Fqv368 B/C Ratio 15.7 Ratio 01/16/2017 Comp Metabolic Zmx012 CALCIUM 8.8 mg/dL 01/16/2017 Comp Metabolic Lpz936 ALK PHOS 171 U/L 01/16/2017 Comp Metabolic Ajf767 AST(SGOT) 54 U/L 01/16/2017 Comp Metabolic Ytf216 ALT(SGPT) 32 U/L 01/16/2017 Comp Metabolic Zcg586 BILI T 0.3 mg/dL 01/16/2017 Comp Metabolic Ceu478 ALBUMIN 3.9 g/dL 01/16/2017 Comp Metabolic Gpn255 TPRO 6.5 g/dL 01/16/2017 Comp Metabolic Ypw877 GLOB 2.6 g/dL 01/16/2017 Comp Metabolic Qfo782 A/G Ratio 1.5 Ratio 01/16/2017 Comp Metabolic Cwk592 Osmo 290 mOsmo 01/16/2017 Comp Metabolic Zxm392 NA 135 mEq/L 09/14/2016 Comp Metabolic Nzp505 K 5.2 mEq/L 09/14/2016 Comp Metabolic Iyy736 CL 93 mEq/L 09/14/2016 Comp Metabolic Oqk719 CO2 26.0 mEq/L 09/14/2016 Comp Metabolic Idf137 ANION GAP 21 09/14/2016 Comp Metabolic Pyg992 GLUCOSE 326 mg/dL 09/14/2016 Comp Metabolic Grx481 Creat 1.0 mg/dL 09/14/2016 Comp Metabolic Iyh968 eGFR 57 ml/min/1.73m2 09/14/2016 Comp Metabolic Auz740 BUN 16 mg/dL 09/14/2016 Comp Metabolic Ivg956 B/C Ratio 15.5 Ratio 09/14/2016 Comp Metabolic Dcz270 CALCIUM 9.2 mg/dL 09/14/2016 Comp Metabolic Rnt715 ALK PHOS 160 U/L 09/14/2016 Comp Metabolic Thk234 AST(SGOT) 49 U/L 09/14/2016 Comp Metabolic Rkm091 ALT(SGPT) 32 U/L 09/14/2016 Comp Metabolic Vkg793 BILI T 0.4 mg/dL 09/14/2016 Comp Metabolic Tnc865 ALBUMIN 4.0 g/dL 09/14/2016 Comp Metabolic Rdu875 TPRO 7.3 g/dL 09/14/2016 Comp Metabolic Vjg471 GLOB 3.3 g/dL 09/14/2016 Comp Metabolic Pxm506 A/G Ratio 1.2 Ratio 09/14/2016 Comp Metabolic Alk288 Osmo 284 mOsmo 09/14/2016 Cbc With Differential [...] 86.9 fl 09/14/2016 Cbc With Differential Ord2 [place]% 6.2 % 09/14/2016 Cbc With Differential Ord2 [...] 2.09 K/ul 09/14/2016 Cbc With Differential Ord2 [place] ABS# 0.7 K/ul 09/14/2016 Cbc With Differential Ord2 Eos ABS# 0.2 K/ul 09/14/2016 Cbc With Differential Ord2 Baso ABS# 0.3 K/ul 09/14/2016 %Hba1C Tvu499 % HbA1c 68251-2 10.7 % 09/14/2016 %Hba1C Stu504 Gluc Ave 260 mg/dL 09/14/2016 Manual Differential Ord52 D-Neutr 62 % 09/14/2016 Manual Differential Ord52 D-[place] 1 % 09/14/2016 Manual Differential Ord52 D-Lymph 34 % 09/14/2016 Manual Differential Ord52 D-Eos 2 % 09/14/2016 Manual Differential Ord52 D-[place] 1 % 09/14/2016 Comp Metabolic Saa505 NA 134 mEq/L 08/10/2016 Comp Metabolic Dvf432 K 5.0 mEq/L 08/10/2016 Comp Metabolic Gsu543 CL 91 mEq/L 08/10/2016 Comp Metabolic Lxt173 CO2 29.0 mEq/L 08/10/2016 Comp Metabolic Ypk102 ANION GAP 19 08/10/2016 Comp Metabolic Tzv383 GLUCOSE 291 mg/dL 08/10/2016 Comp Metabolic Tio415 Creat 0.9 mg/dL 08/10/2016 Comp Metabolic Qkl142 eGFR 68 ml/min/1.73m2 08/10/2016 Comp Metabolic Yta389 BUN 20 mg/dL 08/10/2016 Comp Metabolic Rot646 B/C Ratio 22.7 Ratio 08/10/2016 Comp Metabolic Ziq312 CALCIUM 9.7 mg/dL 08/10/2016 Comp Metabolic Vzw179 ALK PHOS 144 U/L 08/10/2016 Comp Metabolic Bse844 AST(SGOT) 62 U/L 08/10/2016 Comp Metabolic Yut208 ALT(SGPT) 37 U/L 08/10/2016 Comp Metabolic Ysc018 BILI T 0.3 mg/dL 08/10/2016 Comp Metabolic Llm627 ALBUMIN 4.3 g/dL 08/10/2016 Comp Metabolic Yal418 TPRO 7.3 g/dL 08/10/2016 Comp Metabolic Tqv523 GLOB 3.0 g/dL 08/10/2016 Comp Metabolic Qiy577 A/G Ratio 1.5 Ratio 08/10/2016 Comp Metabolic Whq820 Osmo 282 mOsmo 08/10/2016 Free T4 Ryr695 FREE T4 0.89 ng/dL 08/09/2016 Tsh Ord6 [...] 27.1 pg 08/09/2016 Cbc With Differential Ord2 [place]% 5.4 % 08/09/2016 Cbc With Differential Ord2 [...] 2.46 K/ul 08/09/2016 Cbc With Differential Ord2 [place] ABS# 0.8 K/ul 08/09/2016 Cbc With Differential [...] 26.3 % 04/20/2016 Cbc With Differential Ord2 [place]% 6.3 % 04/20/2016 Cbc With Differential Ord2 [...] 2.63 K/ul 04/20/2016 Cbc With Differential Ord2 [place] ABS# 0.6 K/ul 04/20/2016 Cbc With Differential Ord2 Eos ABS# 0.2 K/ul 04/20/2016 Cbc With Differential Ord2 Baso ABS# 0.0 K/ul 04/20/2016 Comp Metabolic Ivr889 NA 133 mEq/L 04/11/2016 Comp Metabolic Kml595 K 4.1 mEq/L 04/11/2016 Comp Metabolic Gdh921 CL 92 mEq/L 04/11/2016 Comp Metabolic Qdd885 CO2 30.0 mEq/L 04/11/2016 Comp Metabolic Lwu886 ANION GAP 15 04/11/2016 Comp Metabolic Ajh306 GLUCOSE 414 mg/dL 04/11/2016 Comp Metabolic Mbp748 Creat 0.9 mg/dL 04/11/2016 Comp Metabolic Wem098 eGFR 65 ml/min/1.73m2 04/11/2016 Comp Metabolic Qxc476 BUN 22 mg/dL 04/11/2016 Comp Metabolic Ybc920 B/C Ratio 23.9 Ratio 04/11/2016 Comp Metabolic Gsx357 CALCIUM 9.2 mg/dL 04/11/2016 Comp Metabolic Uoi197 ALK PHOS 145 U/L 04/11/2016 Comp Metabolic Kid671 AST(SGOT) 22 U/L 04/11/2016 Comp Metabolic Ddr417 ALT(SGPT) 21 U/L 04/11/2016 Comp Metabolic Sqr061 BILI T 0.3 mg/dL 04/11/2016 Comp Metabolic Jxn270 ALBUMIN 3.9 g/dL 04/11/2016 Comp Metabolic Saw176 TPRO 6.8 g/dL 04/11/2016 Comp Metabolic Pvw385 GLOB 3.0 g/dL 04/11/2016 Comp Metabolic Vbg800 A/G Ratio 1.3 Ratio 04/11/2016 Comp Metabolic Ijf982 Osmo 287 mOsmo 04/11/2016 Cbc With Differential [...] 27.6 pg 04/11/2016 Cbc With Differential Ord2 [place]% 6.9 % 04/11/2016 Cbc With Differential Ord2 [...] 2.09 K/ul 04/11/2016 Cbc With Differential Ord2 [place] ABS# 0.7 K/ul 04/11/2016 Cbc With Differential Ord2 Eos ABS# 0.2 K/ul 04/11/2016 Cbc With Differential Ord2 Baso ABS# 0.0 K/ul 04/11/2016 Comp Metabolic Qvn614 NA 136 mEq/L 02/26/2016 Comp Metabolic Bgr366 K 3.9 mEq/L 02/26/2016 Comp Metabolic Oqk017 CL 95 mEq/L 02/26/2016 Comp Metabolic Tyq810 CO2 29.0 mEq/L 02/26/2016 Comp Metabolic Vcr474 ANION GAP 16 02/26/2016 Comp Metabolic Ott995 GLUCOSE 277 mg/dL 02/26/2016 Comp Metabolic Afu122 Creat 0.7 mg/dL 02/26/2016 Comp Metabolic Xhi483 eGFR 88 ml/min/1.73m2 02/26/2016 Comp Metabolic Jcm971 BUN 11 mg/dL 02/26/2016 Comp Metabolic Ncs274 B/C Ratio 15.5 Ratio 02/26/2016 Comp Metabolic Ppt635 CALCIUM 8.8 mg/dL 02/26/2016 Comp Metabolic Ctc873 ALK PHOS 119 U/L 02/26/2016 Comp Metabolic Fje632 AST(SGOT) 25 U/L 02/26/2016 Comp Metabolic Jhd066 ALT(SGPT) 20 U/L 02/26/2016 Comp Metabolic Ung162 BILI T 0.3 mg/dL 02/26/2016 Comp Metabolic Fgg939 ALBUMIN 3.8 g/dL 02/26/2016 Comp Metabolic Owl175 TPRO 6.6 g/dL 02/26/2016 Comp Metabolic Ohj431 GLOB 2.8 g/dL 02/26/2016 Comp Metabolic Khq293 A/G Ratio 1.3 Ratio 02/26/2016 Comp Metabolic Shz166 Osmo 281 mOsmo 02/26/2016 Cbc With Differential [...] 29.6 pg 02/26/2016 Cbc With Differential Ord2 [place]% 6.4 % 02/26/2016 Cbc With Differential Ord2 [...] 2.78 K/ul 02/26/2016 Cbc With Differential Ord2 [place] ABS# 0.8 K/ul 02/26/2016 Cbc With Differential Ord2 Eos ABS# 0.2 K/ul 02/26/2016 Cbc With Differential Ord2 Baso ABS# 0.1 K/ul 02/26/2016 %Hba1C Oyy226 % HbA1c 65704-9 9.6 % 02/26/2016 %Hba1C Wab537 Gluc Ave 229 mg/dL 02/26/2016 Comp Metabolic Sqj743 NA 138 mEq/L 11/10/2015 Comp Metabolic Agy123 K 4.5 mEq/L 11/10/2015 Comp Metabolic Zvb139 CL 99 mEq/L 11/10/2015 Comp Metabolic Din088 CO2 34.0 mEq/L 11/10/2015 Comp Metabolic Wff256 ANION GAP 10 11/10/2015 Comp Metabolic Rnu418 GLUCOSE 167 mg/dL 11/10/2015 Comp Metabolic Yxr693 Creat 0.8 mg/dL 11/10/2015 Comp Metabolic Xnu412 eGFR 78 ml/min/1.73m2 11/10/2015 Comp Metabolic Zka995 BUN 22 mg/dL 11/10/2015 Comp Metabolic Ifx740 B/C Ratio 27.8 Ratio 11/10/2015 Comp Metabolic Gec484 CALCIUM 8.5 mg/dL 11/10/2015 Comp Metabolic Hwa843 ALK PHOS 130 U/L 11/10/2015 Comp Metabolic Bjj229 AST(SGOT) 56 U/L 11/10/2015 Comp Metabolic Gkf949 ALT(SGPT) 51 U/L 11/10/2015 Comp Metabolic Xvv305 BILI T 0.5 mg/dL 11/10/2015 Comp Metabolic Hhs037 ALBUMIN 3.5 g/dL 11/10/2015 Comp Metabolic Jrc829 TPRO 5.8 g/dL 11/10/2015 Comp Metabolic Gvr700 GLOB 2.3 g/dL 11/10/2015 Comp Metabolic Zus326 A/G Ratio 1.5 Ratio 11/10/2015 Comp Metabolic Ckv967 Osmo 283 mOsmo 11/10/2015 Cbc With Differential [...] 93.1 fl 11/10/2015 Cbc With Differential Ord2 [place]% 7.7 % 11/10/2015 Cbc With Differential Ord2 [...] 1.92 K/ul 11/10/2015 Cbc With Differential Ord2 [place] ABS# 0.9 K/ul 11/10/2015 Cbc With Differential [...] 28.6 pg 08/11/2015 Cbc With Differential Ord2 [place]% 8.1 % 08/11/2015 Cbc With Differential Ord2 [...] 2.93 K/ul 08/11/2015 Cbc With Differential Ord2 [place] ABS# 0.9 K/ul 08/11/2015 Cbc With Differential Ord2 Eos ABS# 0.1 K/ul 08/11/2015 Cbc With Differential Ord2 Baso ABS# 0.0 K/ul 08/11/2015 Cbc With Differential Ord2 New Analyzer Notice Please note new ref ranges starting 06-03-2015 due to implemntation of new five part differential hematolgy analyzer. 08/11/2015 Comp Metabolic Mqp164 NA 142 mEq/L 08/11/2015 Comp Metabolic Jba578 K 3.6 mEq/L 08/11/2015 Comp Metabolic Zpo668 CL 98 mEq/L 08/11/2015 Comp Metabolic Rxq145 CO2 33.0 mEq/L 08/11/2015 Comp Metabolic Edv714 ANION GAP 15 08/11/2015 Comp Metabolic Chb406 GLUCOSE 100 mg/dL 08/11/2015 Comp Metabolic Jgh471 Creat 0.9 mg/dL 08/11/2015 Comp Metabolic Qzk525 eGFR 65 ml/min/1.73m2 08/11/2015 Comp Metabolic Pck506 BUN 15 mg/dL 08/11/2015 Comp Metabolic Plr478 B/C Ratio 16.3 Ratio 08/11/2015 Comp Metabolic Ooh048 CALCIUM 8.8 mg/dL 08/11/2015 Comp Metabolic Vcf852 ALK PHOS 171 U/L 08/11/2015 Comp Metabolic Ols025 AST(SGOT) 76 U/L 08/11/2015 Comp Metabolic Jwf953 ALT(SGPT) 64 U/L 08/11/2015 Comp Metabolic Tuw276 BILI T 0.4 mg/dL 08/11/2015 Comp Metabolic Pzv106 ALBUMIN 4.2 g/dL 08/11/2015 Comp Metabolic Eky073 TPRO 6.7 g/dL 08/11/2015 Comp Metabolic Jdk641 GLOB 2.6 g/dL 08/11/2015 Comp Metabolic Tjf906 A/G Ratio 1.6 Ratio 08/11/2015 Comp Metabolic Gft942 Osmo 284 mOsmo 08/11/2015 %Hba1C Lok508 % HbA1c 66456-1 6.7 % 08/11/2015 %Hba1C Wlp805 Gluc Ave 146 mg/dL 08/11/2015 Free T4 Fyr191 FREE T4 1.07 ng/dL 08/11/2015 Culture Urine [id number] URINE CULTURE SEE NOTES 07/23/2015 Culture Urine [id number] Continued Results 07/23/2015 Urine Culture Ucult Complete Growth of aerobe sent to ref lab 07/21/2015 Free T4 Fxd487 FREE T4 0.76 ng/dL 04/15/2015 Tsh Ord6 hTSH II 1.99 uIU/mL 04/15/2015 %Hba1C Ape526 % HbA1c 38889-0 6.7 % 04/14/2015 %Hba1C Lep869 Gluc Ave 146 mg/dL 04/14/2015 Comp Metabolic Tmw411 NA 140 mEq/L 04/14/2015 Comp Metabolic Acv185 K 4.4 mEq/L 04/14/2015 Comp Metabolic Ybl070 CL 99 mEq/L 04/14/2015 Comp Metabolic Vua134 CO2 29.0 mEq/L 04/14/2015 Comp Metabolic Hmq230 ANION GAP 16 04/14/2015 Comp Metabolic Yev257 GLUCOSE 100 mg/dL 04/14/2015 Comp Metabolic Goo564 Creat 0.7 mg/dL 04/14/2015 Comp Metabolic Jtk663 eGFR 91 ml/min/1.73m2 04/14/2015 Comp Metabolic Gfc639 BUN 13 mg/dL 04/14/2015 Comp Metabolic Rim782 B/C Ratio 18.8 Ratio 04/14/2015 Comp Metabolic Erb505 CALCIUM 9.1 mg/dL 04/14/2015 Comp Metabolic Qzg507 ALK PHOS 138 U/L 04/14/2015 Comp Metabolic Icd399 AST(SGOT) 22 U/L 04/14/2015 Comp Metabolic Ivy168 ALT(SGPT) 22 U/L 04/14/2015 Comp Metabolic Zpc631 BILI T 0.3 mg/dL 04/14/2015 Comp Metabolic Gos456 ALBUMIN 4.0 g/dL 04/14/2015 Comp Metabolic Dxx454 TPRO 6.5 g/dL 04/14/2015 Comp Metabolic Flo445 GLOB 2.5 g/dL 04/14/2015 Comp Metabolic Xzo911 A/G Ratio 1.6 Ratio 04/14/2015 Comp Metabolic Ctz800 Osmo 280 mOsmo 04/14/2015 Cbc With Differential [...] Ord2 RDW 16.5 % 04/14/2015 CHEM 14 6418663 AST 15 U/L 09/11/2013 CHEM 14 2627646 ALT 25 IU/L 09/11/2013 CHEM 14 7092604 BUN 29 MG/DL 09/11/2013 CHEM 14 1919451 ALBUMIN 3.8 GM/DL 09/11/2013 CHEM 14 3288043 CHLORIDE 99 MMOL/L 09/11/2013 CHEM 14 5202714 BILI TOT 0.2 MG/DL 09/11/2013 CHEM 14 5450666 ALK PHOS 118 U/L 09/11/2013 CHEM 14 2365481 SODIUM 136 MMOL/L 09/11/2013 CHEM 14 0736532 CREATININE 1.26 MG/DL 09/11/2013 CHEM 14 7168262 CALCIUM 9.0 MG/DL 09/11/2013 CHEM 14 3657841 POTASSIUM 5.0 MMOL/L 09/11/2013 CHEM 14 2919265 PROT TOT 6.2 GM/DL 09/11/2013 CHEM 14 8250017 GLUCOSE 254 MG/DL 09/11/2013 CHEM 14 9627855 BICARB 29 MMOL/L 09/11/2013 CHEM 14 7411105 ANION GAP 8 MEQ/L 09/11/2013 GFR CALC 1570293 GFR AA 52.0L ML/MIN 09/11/2013 GFR CALC 2875940 GFR NON-AA 43.0L ML/MIN 09/11/2013 FREE T4 5652064 FREE T4 1.35 NG/DL 08/02/2013 CBC 2591963 WBC 7.5 10e9/L 08/01/2013 CBC 5638889 RBC 3.88 10e12/L 08/01/2013 CBC 8830044 HGB 12.1 g/dL 08/01/2013 CBC 6497621 HCT DET 37.6 % 08/01/2013 CBC 8786532 MCV 96.9 fL 08/01/2013 CBC 7586088 MCH 31.2 pg 08/01/2013 CBC 1848380 MCHC 32.2 g/dL 08/01/2013 CBC 8142382 PLT 289 10e9/L 08/01/2013 CBC 1721055 MPV 9.6 fL 08/01/2013 CBC 1035837 JOSEFINA % 56.0 % 08/01/2013 CBC 3661325 LY % 31.6 % 08/01/2013 CBC 5090503 MON % 10.0 % 08/01/2013 CBC 9448378 EOS % 1.7 % 08/01/2013 CBC 5033958 BASO % 0.7 % 08/01/2013 CBC 6069374 RDW 15.5 % 08/01/2013 CBC 8999674 ABS JOSEFINA 4.20 10e9/L 08/01/2013 CBC 3507941 ABS LYMPH 2.37 10e9/L 08/01/2013 CBC 8576922 ABS MONO 0.75 10e9/L 08/01/2013 CBC 2879366 ABS EOS 0.13 10e9/L 08/01/2013 CBC 7632975 ABS BASO 0.05 10e9/L 08/01/2013 CBC 2559655 RDW-SD 53.5 fL 08/01/2013 TSH 2796218 TSH 6.497 uIU/ML 08/01/2013 CHEM 14 7306291 AST 53 U/L 08/01/2013 CHEM 14 20271124 ALT 36 IU/L 08/01/2013 CHEM 14 9726884 BUN 16 MG/DL 08/01/2013 CHEM 14 6793419 ALBUMIN 4.2 GM/DL 08/01/2013 CHEM 14 8813810 CHLORIDE 103 MMOL/L 08/01/2013 CHEM 14 0464451 BILI TOT 0.4 MG/DL 08/01/2013 CHEM 14 9203582 ALK PHOS 113 U/L 08/01/2013 CHEM 14 6621367 SODIUM 139 MMOL/L 08/01/2013 CHEM 14 2460196 CREATININE 0.83 MG/DL 08/01/2013 CHEM 14 4501006 CALCIUM 9.5 MG/DL 08/01/2013 CHEM 14 6628754 POTASSIUM 4.2 MMOL/L 08/01/2013 CHEM 14 4028291 PROT TOT 6.4 GM/DL 08/01/2013 CHEM 14 1052879 GLUCOSE 135 MG/DL 08/01/2013 CHEM 14 9616093 BICARB 26 MMOL/L 08/01/2013 CHEM 14 3252149 ANION GAP 10 MEQ/L 08/01/2013 A1C HPLC 1212287 A1C HPLC 69305-1 8.1 % 08/01/2013 GFR CALC 4710734 GFR AA >60 ML/MIN 08/01/2013 GFR CALC 1186851 GFR NON-AA >60 ML/MIN 08/01/2013 CBC 0993222 WBC 10.4 10e9/L 03/21/2013 CBC 3231224 RBC 4.27 10e12/L 03/21/2013 CBC 2017385 HGB 13.1 g/dL 03/21/2013 CBC 8905325 HCT DET 41.2 % 03/21/2013 CBC 7609194 MCV 96.5 fL 03/21/2013 CBC 4641163 MCH 30.7 pg 03/21/2013 CBC 0067139 MCHC 31.8 g/dL 03/21/2013 CBC 9621384 PLT 398 10e9/L 03/21/2013 CBC 3838771 MPV 10.9 fL 03/21/2013 CBC 2444270 JOSEFINA % 65.4 % 03/21/2013 CBC 7712265 LY % 25.6 % 03/21/2013 CBC 7736276 MON % 6.7 % 03/21/2013 CBC 2636449 EOS % 1.9 % 03/21/2013 CBC 6984790 BASO % 0.4 % 03/21/2013 CBC 1254486 RDW 14.2 % 03/21/2013 CBC 8277713 ABS JOSEFINA 6.80 10e9/L 03/21/2013 CBC 3368839 ABS LYMPH 2.66 10e9/L 03/21/2013 CBC 1419355 ABS MONO 0.70 10e9/L 03/21/2013 CBC 5466487 ABS EOS 0.20 10e9/L 03/21/2013 CBC 7773708 ABS BASO 0.04 10e9/L 03/21/2013 CBC 0631314 RDW-SD 48.7 fL 03/21/2013 GFR CALC 5958205 GFR AA 57.0L ML/MIN 03/21/2013 GFR CALC 5569672 GFR NON-AA 47.0L ML/MIN 03/21/2013 CHEM 14 7958633 AST 22 U/L 03/21/2013 CHEM 14 2714340 ALT 22 IU/L 03/21/2013 CHEM 14 0870853 BUN 29 MG/DL 03/21/2013 CHEM 14 6523570 ALBUMIN 4.1 GM/DL 03/21/2013 CHEM 14 7114645 CHLORIDE 99 MMOL/L 03/21/2013 CHEM 14 3015782 BILI TOT 0.3 MG/DL 03/21/2013 CHEM 14 9923588 ALK PHOS 123 U/L 03/21/2013 CHEM 14 7898956 SODIUM 137 MMOL/L 03/21/2013 CHEM 14 7048386 CREATININE 1.16 MG/DL 03/21/2013 CHEM 14 9538315 CALCIUM 9.1 MG/DL 03/21/2013 CHEM 14 7470202 POTASSIUM 4.1 MMOL/L 03/21/2013 CHEM 14 2369955 PROT TOT 6.7 GM/DL 03/21/2013 CHEM 14 0130602 GLUCOSE 209 MG/DL 03/21/2013 CHEM 14 2524857 BICARB 26 MMOL/L 03/21/2013 CHEM 14 6597127 ANION GAP 12 MEQ/L 03/21/2013 A1C HPLC 6851916 A1C HPLC 26703-7 6.6 % 03/21/2013 GFR CALC 9035771 GFR AA >60 ML/MIN 01/17/2013 GFR CALC 0355255 GFR NON-AA 51.0L ML/MIN 01/17/2013 CHEM 14 9548744 AST 18 U/L 01/17/2013 CHEM 14 3000919 ALT 32 IU/L 01/17/2013 CHEM 14 5570520 BUN 22 MG/DL 01/17/2013 CHEM 14 5950066 ALBUMIN 4.1 GM/DL 01/17/2013 CHEM 14 7356292 CHLORIDE 99 MMOL/L 01/17/2013 CHEM 14 3017040 BILI TOT 0.3 MG/DL 01/17/2013 CHEM 14 8072169 ALK PHOS 110 U/L 01/17/2013 CHEM 14 6126004 SODIUM 138 MMOL/L 01/17/2013 CHEM 14 3065870 CREATININE 1.09 MG/DL 01/17/2013 CHEM 14 6986019 CALCIUM 8.8 MG/DL 01/17/2013 CHEM 14 6986759 POTASSIUM 3.5 MMOL/L 01/17/2013 CHEM 14 9824260 PROT TOT 6.1 GM/DL 01/17/2013 CHEM 14 7101255 GLUCOSE 163 MG/DL 01/17/2013 CHEM 14 6712075 BICARB 29 MMOL/L 01/17/2013 CHEM 14 1201669 ANION GAP 10 MEQ/L 01/17/2013 CBC 1024565 WBC 8.0 10e9/L 01/17/2013 CBC 7581050 RBC 3.85 10e12/L 01/17/2013 CBC 0343800 HGB 12.6 g/dL 01/17/2013 CBC 6284298 HCT DET 38.0 % 01/17/2013 CBC 3357481 MCV 98.7 fL 01/17/2013 CBC 8188421 MCH 32.7 pg 01/17/2013 CBC 4572649 MCHC 33.2 g/dL 01/17/2013 CBC 0387239 PLT 325 10e9/L 01/17/2013 CBC 5685367 MPV 10.4 fL 01/17/2013 CBC 4325432 JOSEFIN[place] % 64.6 % 01/17/2013 CBC 1219622 LY % 27.0 % 01/17/2013 CBC 0905962 MON % 6.8 % 01/17/2013 CBC 1799173 EOS % 1.4 % 01/17/2013 CBC 2085152 BASO % 0.2 % 01/17/2013 CBC 0615678 RDW 15.5 % 01/17/2013 CBC 7055251 ABS JOSEFINA 5.17 10e9/L 01/17/2013 CBC 5399239 ABS LYMPH 2.16 10e9/L 01/17/2013 CBC 6170363 ABS MONO 0.54 10e9/L 01/17/2013 CBC 1541324 ABS EOS 0.11 10e9/L 01/17/2013 CBC 1893397 ABS BASO 0.02 10e9/L 01/17/2013 CBC 4068419 RDW-SD 54.3 fL 01/17/2013 TSH 8584254 TSH 3.683 uIU/ML 12/31/2012 FREE T4 2517396 FREE T4 1.34 NG/DL 12/31/2012 A1C HPLC 2312166 A1C HPLC 13944-4 6.6 % 12/21/2012 CHEM 14 9918683 AST 16 U/L 12/20/2012 CHEM 14 2119966 ALT 36 IU/L 12/20/2012 CHEM 14 6049287 BUN 26 MG/DL 12/20/2012 CHEM 14 8766986 ALBUMIN 4.2 GM/DL 12/20/2012 CHEM 14 4666312 CHLORIDE 103 MMOL/L 12/20/2012 CHEM 14 1714981 BILI TOT 0.4 MG/DL 12/20/2012 CHEM 14 5681998 ALK PHOS 107 U/L 12/20/2012 CHEM 14 2641105 SODIUM 141 MMOL/L 12/20/2012 CHEM 14 6649152 CREATININE 0.73 MG/DL 12/20/2012 CHEM 14 1249657 CALCIUM 9.2 MG/DL 12/20/2012 CHEM 14 1322820 POTASSIUM 4.3 MMOL/L 12/20/2012 CHEM 14 9282681 PROT TOT 6.2 GM/DL 12/20/2012 CHEM 14 5464532 GLUCOSE 135 MG/DL 12/20/2012 CHEM 14 9990935 BICARB 32 MMOL/L 12/20/2012 CHEM 14 6422607 ANION GAP 6 MEQ/L 12/20/2012 GFR CALC 2490784 GFR AA >60 ML/MIN 12/20/2012 GFR CALC 6637331 GFR NON-AA >60 ML/MIN 12/20/2012 CBC 4728994 WBC 8.4 10e9/L 12/20/2012 CBC 0404921 RBC 4.30 10e12/L 12/20/2012 CBC 6301201 HGB 13.9 g/dL 12/20/2012 CBC 2857464 HCT DET 41.8 % 12/20/2012 CBC 9868817 MCV 97.2 fL 12/20/2012 CBC 2577199 MCH 32.3 pg 12/20/2012 CBC 7548111 MCHC 33.3 g/dL 12/20/2012 CBC 5495402 PLT 358 10e9/L 12/20/2012 CBC 8366177 MPV 10.2 fL 12/20/2012 CBC 0452702 JOSEFINA % 63.3 % 12/20/2012 CBC 4690644 LY % 28.9 % 12/20/2012 CBC 4842971 MON % 6.3 % 12/20/2012 CBC 1218314 EOS % 1.1 % 12/20/2012 CBC 5654370 BASO % 0.4 % 12/20/2012 CBC 1852018 RDW 15.3 % 12/20/2012 CBC 9958037 ABS JOSEFINA 5.32 10e9/L 12/20/2012 CBC 3347212 ABS LYMPH 2.43 10e9/L 12/20/2012 CBC 7342086 ABS MONO 0.53 10e9/L 12/20/2012 CBC 5877090 ABS EOS 0.09 10e9/L 12/20/2012 CBC 9937233 ABS BASO 0.03 10e9/L 12/20/2012 CBC 1103375 RDW-SD 51.9 fL 12/20/2012 GFR CALC 9222810 GFR AA >60 ML/MIN 02/01/2012 GFR CALC 5976482 GFR NON-AA >60 ML/MIN 02/01/2012 CBC 7055599 WBC 10.8 10e9/L 02/01/2012 CBC 8213415 RBC 3.86 10e12/L 02/01/2012 CBC 8622528 HGB 11.8 g/dL 02/01/2012 CBC 2845265 HCT DET 36.3 % 02/01/2012 CBC 7745446 MCV 94.0 fL 02/01/2012 CBC 7172421 MCH 30.6 pg 02/01/2012 CBC 6965216 MCHC 32.5 g/dL 02/01/2012 CBC 4838025 PLT 321 10e9/L 02/01/2012 CBC 3710114 MPV 10.3 fL 02/01/2012 CBC 0209319 JOSEFINA % 75.9 % 02/01/2012 CBC 7920598 LY % 16.1 % 02/01/2012 CBC 3551820 MON % 6.8 % 02/01/2012 CBC 8968430 EOS % 1.0 % 02/01/2012 CBC 8006352 BASO % 0.2 % 02/01/2012 CBC 8077115 RDW 14.2 % 02/01/2012 CBC 6201754 ABS JOSEFINA 8.20 10e9/L 02/01/2012 CBC 2930268 ABS LYMPH 1.74 10e9/L 02/01/2012 CBC 1813947 ABS MONO 0.73 10e9/L 02/01/2012 CBC 1635475 ABS EOS 0.11 10e9/L 02/01/2012 CBC 8776327 ABS BASO 0.02 10e9/L 02/01/2012 CBC 6983059 RDW-SD 47.2 fL 02/01/2012 BRAIN PEP 1824578 BRAIN PEP FOOTNOTE pg/mL 02/01/2012 CHEM 14 2654137 AST 26 U/L 02/01/2012 CHEM 14 5969910 ALT 36 IU/L 02/01/2012 CHEM 14 1597839 BUN 29 MG/DL 02/01/2012 CHEM 14 5769133 ALBUMIN 3.7 GM/DL 02/01/2012 CHEM 14 2140866 CHLORIDE 105 MMOL/L 02/01/2012 CHEM 14 6145222 BILI TOT 0.2 MG/DL 02/01/2012 CHEM 14 1871597 ALK PHOS 89 U/L 02/01/2012 CHEM 14 1365801 SODIUM 141 MMOL/L 02/01/2012 CHEM 14 7141067 CREATININE 0.76 MG/DL 02/01/2012 CHEM 14 3654011 CALCIUM 9.0 MG/DL 02/01/2012 CHEM 14 7309230 POTASSIUM 4.8 MMOL/L 02/01/2012 CHEM 14 1708106 PROT TOT 5.5 GM/DL 02/01/2012 CHEM 14 8048575 GLUCOSE 83 MG/DL 02/01/2012 CHEM 14 8383707 BICARB 31 MMOL/L 02/01/2012 CHEM 14 6260869 ANION GAP 5 MEQ/L 02/01/2012 GFR CALC 7689466 GFR AA >60 ML/MIN 11/30/2011 GFR CALC 4076042 GFR NON-AA >60 ML/MIN 11/30/2011 CHEM 14 4549760 AST 14 U/L 11/30/2011 CHEM 14 7392677 ALT 17 IU/L 11/30/2011 CHEM 14 1314968 BUN 12 MG/DL 11/30/2011 CHEM 14 8067770 ALBUMIN 4.3 GM/DL 11/30/2011 CHEM 14 5986046 CHLORIDE 104 MMOL/L 11/30/2011 CHEM 14 6659710 BILI TOT 0.3 MG/DL 11/30/2011 CHEM 14 6176221 ALK PHOS 83 U/L 11/30/2011 CHEM 14 5691136 SODIUM 143 MMOL/L 11/30/2011 CHEM 14 2897296 CREATININE 0.71 MG/DL 11/30/2011 CHEM 14 0291406 CALCIUM 9.7 MG/DL 11/30/2011 CHEM 14 3198829 POTASSIUM 4.4 MMOL/L 11/30/2011 CHEM 14 9414184 PROT TOT 6.3 GM/DL 11/30/2011 CHEM 14 7162197 GLUCOSE 107 MG/DL 11/30/2011 CHEM 14 3548676 BICARB 27 MMOL/L 11/30/2011 CHEM 14 3637760 ANION GAP 12 MEQ/L 11/30/2011 CBC 5704295 WBC 8.7 10e9/L 11/30/2011 CBC 1131937 RBC 4.40 10e12/L 11/30/2011 CBC 5330105 HGB 13.6 g/dL 11/30/2011 CBC 9142479 HCT DET 41.0 % 11/30/2011 CBC 4213879 MCV 93.2 fL 11/30/2011 CBC 9558139 MCH 30.9 pg 11/30/2011 CBC 4163727 MCHC 33.2 g/dL 11/30/2011 CBC 3430821 PLT 328 10e9/L 11/30/2011 CBC 7153975 MPV 10.7 fL 11/30/2011 CBC 8435388 JOSEFINA % 68.4 % 11/30/2011 CBC 7450591 LY % 22.4 % 11/30/2011 CBC 5952162 MON % 7.9 % 11/30/2011 CBC 5733243 EOS % 1.1 % 11/30/2011 CBC 6280903 BASO % 0.2 % 11/30/2011 CBC 5927132 RDW 13.5 % 11/30/2011 CBC 2030330 ABS JOSEFINA 5.95 10e9/L 11/30/2011 CBC 6292193 ABS LYMPH 1.95 10e9/L 11/30/2011 CBC 0730538 ABS MONO 0.69 10e9/L 11/30/2011 CBC 5478296 ABS EOS 0.10 10e9/L 11/30/2011 CBC 5633436 ABS BASO 0.02 10e9/L 11/30/2011 CBC 0725648 RDW-SD 45.0 fL 11/30/2011 URINALYSIS NONAUTO W/O SCOPE 50883 Specific [place] 1.030 DateTime(Free Text in Aprima) URINALYSIS NONAUTO W/O SCOPE 87815 PH 5 DateTime(Free Text in Aprima) URINALYSIS NONAUTO W/O SCOPE 73283 GLUCOSE neg DateTime( Free Text in Aprima) URINALYSIS NONAUTO W/O SCOPE 33037 Protein neg DateTime( Free Text in Aprima) URINALYSIS NONAUTO W/O SCOPE 07824 Blood neg DateTime(Free Text in Aprima) URINALYSIS NONAUTO W/O SCOPE 08466 Bilirubin neg DateTime(Free Text in Aprima) URINALYSIS NONAUTO W/O SCOPE 46072 Ketones neg DateTime( Free Text in Aprima) URINALYSIS NONAUTO W/O SCOPE 53718 Urobilinogen neg DateTime(Free Text in Aprima) URINALYSIS NONAUTO W/O SCOPE 14957 Nitrite neg DateTime( Free Text in Aprima) URINALYSIS NONAUTO W/O SCOPE 78249 Leukocytes neg DateTime(Free Text in Aprima) UA 45865 Specific [place] 1.010 DateTime(Free Text in Aprima ) UA 36458 PH 5 DateTime(Free Text in Aprima) UA 55633 GLUCOSE N DateTime(Free Text in Aprima) UA 03055 Protein N DateTime(Free Text in Aprima) UA 35731 Blood TRACE DateTime(Free Text in Aprima) UA 48491 Bilirubin N DateTime(Free Text in Aprima) UA 03485 Ketones N DateTime(Free Text in Aprima) UA 56207 Urobilinogen N DateTime(Free Text in Aprima) UA 92297 Nitrite N DateTime(Free Text in Aprima) UA 34775 Leukocytes N DateTime(Free Text in Aprima) URINALYSIS NONAUTO W/O SCOPE 72578 Specific [place] 1.010 DateTime(Free Text in Aprima) URINALYSIS NONAUTO W/O SCOPE 03159 PH 7.5 DateTime(Free Text in Aprima) URINALYSIS NONAUTO W/O SCOPE 84614 GLUCOSE DateTime( Free Text in Aprima) URINALYSIS NONAUTO W/O SCOPE 04216 Protein trace DateTime(Free Text in Aprima) URINALYSIS NONAUTO W/O SCOPE 83479 Blood DateTime(Free Text in Aprima) URINALYSIS NONAUTO W/O SCOPE 67928 Bilirubin DateTime( Free Text in Apr[employer]) URINALYSIS NONAUTO W/O SCOPE 20737 Ketones DateTime( Free Text in Aprima) URINALYSIS NONAUTO W/O SCOPE 79434 Urobilinogen DateTime (Free Text in Aprima) URINALYSIS NONAUTO W/O SCOPE 60532 Nitrite DateTime( Free Text in Aprima) URINALYSIS NONAUTO W/O SCOPE 50984 Leukocytes DateTime( Free Text in Aprima) URINALYSIS NONAUTO W/O SCOPE 62771 Specific [place] 1.010 DateTime(Free Text in Aprima) URINALYSIS NONAUTO W/O SCOPE 65587 PH 6 DateTime(Free Text in Aprima) URINALYSIS NONAUTO W/O SCOPE 28000 GLUCOSE DateTime( Free Text in Aprima) URINALYSIS NONAUTO W/O SCOPE 36812 Protein DateTime( Free Text in Aprima) URINALYSIS NONAUTO W/O SCOPE 97134 Blood DateTime(Free Text in Aprima) URINALYSIS NONAUTO W/O SCOPE 81591 Bilirubin DateTime( Free Text in Aprima) URINALYSIS NONAUTO W/O SCOPE 59474 Ketones DateTime( Free Text in Aprima) URINALYSIS NONAUTO W/O SCOPE 90783 Urobilinogen DateTime (Free Text in Aprima) URINALYSIS NONAUTO W/O SCOPE 33590 Nitrite DateTime( Free Text in Aprima) URINALYSIS NONAUTO W/O SCOPE 57647 Leukocytes DateTime( Free Text in Aprima) UA 55421 Specific [place] 1.020 DateTime(Free Text in Aprima ) UA 57512 PH 6 DateTime(Free Text in Aprima) UA 10660 GLUCOSE neg DateTime(Free Text in Aprima) UA 59261 Protein neg DateTime(Free Text in Aprima) UA 97513 Blood neg DateTime(Free Text in Aprima) UA 29118 Bilirubin neg DateTime(Free Text in Aprima) UA 68527 Ketones neg DateTime(Free Text in Aprima) UA 54953 Urobilinogen neg DateTime(Free Text in Aprima) UA 13598 Nitrite neg DateTime(Free Text in Aprima) UA 40342 Leukocytes neg DateTime(Free Text in Aprima) BMI 67571-8 39.7 DateTime(Free Text in ) Blood Pressure [...] dysmetria 02/20/2018 None Full Exam - General 1995 Neurologic coordination Overall: no tremors 02/20/2018 None [...] distress 10/27/2017 None Full Exam - General 1995 Constitutional general appearance Overall: well nourished 10/27/2017 None Full Exam - General 1995 Eyes conjunctiva /eyelids Overall: conjunctiva clear 10/27/2017 None Full Exam - General 1995 Eyes conjunctiva /eyelids Overall: cornea clear 10/27/2017 None Full Exam - General 1995 Eyes conjunctiva /eyelids Overall: eyelids normal 10/27/2017 [...] clear 10/28/2016 None Full Exam - General 1995 Ears/Nose/Throat [...] exam 05/26/2014 None Full Exam - General 1995 Ears/Nose/Throat otoscopic exam External auditory canal: partial cerumen occlusion 05/26/2014 None Full Exam - General 1994 Ears/Nose/Throat otoscopic exam Tympanic membrane: a normal exam 05/26/2014 None Full Exam - General 1995 Ears/Nose/Throat [...] rate 01/27/2014 None Full Exam - General 1995 Cardiovascular extremities Edema present: pitting 01/27/2014 None Full Exam - General 1995 Cardiovascular extremities Edema present: severity 1+ - [...] protuberant 01/27/2014 None Full Exam - General 1995 Abdomen [...] visualized 11/14/2013 None Full Exam - General 1994 [...] occlusion 10/21/2013 None Full Exam - General 1995 Ears/Nose/Throat otoscopic exam Tympanic membrane: a normal exam 10/21/2013 None Full Exam - General 1995 Ears/Nose/Throat [...] dentition 08/19/2013 None Full Exam - General 1994 Ears/Nose/Throat lips/teeth/gingiva Overall: benign gingiva 08/19/2013 None [...] accomodation 07/15/2013 None Full Exam - General 1995 Ears/Nose/Throat external ear Overall: normal appearance 07/15/2013 None Full Exam - General 1994 Ears/Nose/Throat external ear Overall: no masses 07/15/2013 [...] erythema 06/10/2013 None Full Exam - General 1994 Ears/Nose/Throat internal nose Drainage: clear 06/10/2013 None [...] mastoids 05/07/2013 None Full Exam - General 1994 Ears/Nose/Throat otoscopic exam External auditory canal: a normal exam 05/07/2013 None Full Exam - General 1994 Ears/Nose/Throat otoscopic exam External auditory canal: partial cerumen occlusion 05/07/2013 None Full Exam - General 1994 Ears/Nose/Throat otoscopic exam Tympanic membrane: a normal exam 05/07/2013 None Full Exam - General 1994 Ears/Nose/Throat otoscopic exam Tympanic membrane: not visualized 05/07/2013 None Full Exam - General 1995 Ears/Nose/Throat internal nose Overall: bilateral nasal cavities clear 05/07/2013 None Full Exam - General 1995 Ears/Nose/Throat internal nose Turbinates: erythema 05/07/2013 None Full Exam - General 1995 Ears/Nose/Throat internal nose Drainage: clear 05/07/2013 None Full Exam - General 1995 Respiratory respiratory effort/rhythm Overall: no retractions 05/07/2013 None Full Exam - General 1995 Respiratory respiratory effort/rhythm Overall: normal rate 05/07/2013 None Full Exam - General 1995 Cardiovascular auscultation of heart Overall: regular rate 05/07/2013 None Full Exam - General 1995 Cardiovascular auscultation of heart Overall: normal heart [...] accomodation 04/16/2013 None Full Exam - General 1994 Ears/Nose/Throat external ear Overall: normal appearance 04/16/2013 None Full Exam - General 1994 Ears/Nose/Throat external ear Overall: no masses 04/16/2013 [...] erythema 04/16/2013 None Full Exam - General 1994 Ears/Nose/Throat internal nose Drainage: clear 04/16/2013 None [...] obese 03/21/2013 None Full Exam - General 1994 Eyes conjunctiva /eyelids Overall: conjunctiva clear 03/21/2013 None Full Exam - General 1994 Eyes conjunctiva /eyelids Overall: cornea clear 03/21/2013 [...] flaking 03/21/2013 None Full Exam - General 1995 Integument inspection of skin Location: left foot 03/21/2013 None Full Exam - General 1995 Integument [...] accomodation 02/12/2013 None Full Exam - General 1995 [...] 02/04/2013 None Full Exam - General 1995 Respiratory auscultation Overall: breath sounds clear bilaterally 02/04/2013 None Full Exam - General 1995 Respiratory respiratory effort/rhythm Overall: no retractions 02/04/2013 None Full Exam - General 1995 Respiratory respiratory effort/rhythm Overall: normal rate 02/04/2013 [...] clear 01/17/2013 None Full Exam - General 1995 Respiratory [...] leg 12/31/2012 None Full Exam - General 1994 Integument inspection of skin Rash/Lesions: ulceration 12/31/2012 [...] responses 12/31/2012 None Full Exam - General 1995 Integument inspection of skin Location: left foot 12/31/2012 callous at base of left 5th toe with fissue noted Full Exam - General 1994 Constitutional general appearance Development: well developed 12/20/2012 None Full Exam - General 1995 Constitutional [...] masses 10/29/2012 None Full Exam - General 1994 Ears/Nose/Throat external ear Overall: normal mastoids 10/29/2012 None Full Exam - General 1994 [...] exam 09/06/2012 None Full Exam - General 1995 Abdomen abdominal exam Contour: rounded 09/06/2012 None Full Exam - General 1995 Abdomen abdominal exam Bowel sounds: a normal exam 09/06/2012 None Full Exam - General 1995 Lymphatic neck nodes Overall: anterior cervical chain benign 09/06/2012 None Full Exam - General 1995 Neurologic deep tendon reflexes Overall: deep tendon reflexes intact 09/06/2012 None Full Exam - General 1995 Neurologic cranial nerves Overall: crainial nerves 2 - 12 grossly intact 09/06/2012 None Full Exam - General 1995 Psychiatric orientation/consciousness Overall: oriented to person, place and time 09/06/2012 None Full Exam - General 1995 Psychiatric mood and affect Mood: depressed 09/06/2012 None Full Exam - General 1995 Psychiatric mood and affect Affect: mood congruent 09/06/2012 None Full Exam - General 1994 Psychiatric mood and affect Appropriateness: appropriate emotional responses 09/06/2012 None Full Exam - General 1995 Constitutional general appearance Development: well developed 08/23/2012 [...] retractions 08/13/2012 None Full Exam - General 1995 Respiratory respiratory effort/rhythm Overall: normal rate 08/13/2012 [...] 06/07/2012 None Full Exam - General 1994 Respiratory auscultation Overall: breath sounds clear bilaterally 06/07/2012 None Full Exam - General 1994 Respiratory respiratory effort/rhythm Overall: no retractions 06/07/2012 [...] sounds 06/07/2012 None Full Exam - General 1995 Genitourinary labia and vagina Labia: cyst 06/07/2012 [...] 05/28/2012 None Full Exam - General 1994 Ears/Nose/Throat [...] rhythm 05/17/2012 None Full Exam - General 1995 [...] accomodation 05/02/2012 None Full Exam - General 1995 Ears/Nose/Throat [...] clear 04/10/2012 None Full Exam - General 1995 Constitutional general appearance Development: well developed 02/27/2012 [...] benign 02/01/2012 None Full Exam - General 1995 Neurologic deep tendon reflexes Overall: deep tendon reflexes intact 02/01/2012 None Full Exam - General 1995 Neurologic cranial nerves Overall: crainial nerves 2 - 12 grossly intact 02/01/2012 None Full Exam - General 1995 Psychiatric orientation/consciousness Overall: oriented to person, place and time 02/01/2012 None Full Exam - General 1995 Psychiatric mood and affect Mood: depressed 02/01/2012 None Full Exam - General 1995 Psychiatric [...] exam 11/30/2011 None Full Exam - General 1994 Ears/Nose/Throat otoscopic exam External auditory canal: minimal cerumen 11/30/2011 None Full Exam - General 1994 Ears/Nose/Throat otoscopic exam Tympanic membrane: air- fluid level 11/30/2011 None Full Exam - General 1994 [...] accomodation 11/17/2011 None Full Exam - General 1995 Ears/Nose/Throat otoscopic exam External auditory canal: a normal exam 11/17/2011 None Full Exam - General 1995 Ears/Nose/Throat otoscopic exam External auditory canal: minimal cerumen 11/17/2011 None Full Exam - General 1995 Ears/Nose/Throat otoscopic exam Tympanic membrane: air- fluid level 11/17/2011 None Full Exam - General 1995 Ears/Nose/Throat oral cavity/pharynx/larynx Overall: oral mucosa clear 11/17/2011 None Full Exam - General 1995 [...] sounds 11/03/2011 None Full Exam - General 1994 [...] pitting 10/24/2011 None Full Exam - General 1995 Cardiovascular extremities Edema present: severity 1+ - 4 +: 2+ 10/24/2011 None Full Exam - General 1995 Cardiovascular extremities Edema present: bilateral 10/24/2011 None Full Exam - General 1995 Cardiovascular extremities Edema present: to knees 10/24/2011 None Full Exam - General 1995 [...] accomodation 09/01/2011 None Full Exam - General 1994 Ears/Nose/Throat external ear Overall: normal appearance 09/01/2011 None Full Exam - General 1994 Ears/Nose/Throat external ear Overall: no masses 09/01/2011 [...] visualized 09/01/2011 None Full Exam - General 1995 Ears/Nose/Throat internal nose Overall: bilateral nasal cavities clear 09/01/2011 None Full Exam - General 1995 Ears/Nose/Throat internal nose Turbinates: erythema 09/01/2011 None [...] dentition 08/15/2011 None Full Exam - General 1994 Ears/Nose/Throat lips/teeth/gingiva Overall: benign gingiva 08/15/2011 None [...] exam 06/20/2011 None Full Exam - General 1995 Ears/Nose/Throat [...] Date GLUC MONITOR CONT PHYS I&R CPT-4: 19184 04/27/2018 URINALYSIS NONAUTO W/O SCOPE CPT-4: 46402 04/10/2018 GLUCOSE MONITORING CONT CPT-4: 50163 04/10/2018 OCCULT BLOOD FECES CPT -4: 93085 02/22/2018 URINALYSIS NONAUTO W/O SCOPE CPT-4: 90255 02/20/2018 URINALYSIS NONAUTO W/O SCOPE CPT-4: 49569 12/14/2017 URINALYSIS NONAUTO W/O SCOPE CPT-4: 90139 11/27/2017 PPPS, SUBSEQ VISIT CPT -4: G0439 10/27/2017 GLUCOSE MONITORING CONT CPT-4: 65273 09/27/2017 URINALYSIS NONAUTO W/O SCOPE CPT-4: 19066 06/30/2017 URINALYSIS NONAUTO W/O SCOPE CPT-4: 01622 11/25/2016 URINALYSIS NONAUTO W/O SCOPE CPT-4: 24599 10/21/2016 URINALYSIS NONAUTO W/O SCOPE CPT-4: 13547 06/24/2016 URINALYSIS NONAUTO W/O SCOPE CPT-4: 16647 04/11/2016 ADMIN PNEUMOCOCCAL VACCINE SNOMED CT: [id number] CPT-4: G0009 02/26/2016 PNEUMOCOCCAL VACC 13 ANURADHA IM Formatting Model/CDA Sections, Assigned to/Jada Velazquez SNOMED CT: [id number] CPT-4: 74445Kttpqam 02/26/2016 URINALYSIS NONAUTO W/O SCOPE CPT-4: 03709 02/10/2016 URINALYSIS NONAUTO W/O SCOPE CPT-4: 50304 11/27/2015 URINALYSIS NONAUTO W/O SCOPE CPT-4: 10243 11/02/2015 INITIAL PREVENTIVE EXAM CPT-4: G0402 09/29/2015 URINALYSIS NONAUTO W/O SCOPE CPT-4: 48558 07/20/2015 TRIAMCINOLONE ACET INJ NOS CPT-4: J3301 06/26/2015 URINALYSIS NONAUTO W/O SCOPE CPT-4: 61974 11/05/2014 URINALYSIS NONAUTO W/O SCOPE CPT-4: 37211 04/21/2014 CULTURE AEROBIC IDENTIFY CPT-4: 30538 12/12/2013 URINALYSIS NONAUTO W/O SCOPE CPT-4: 84056 11/18/2013 ROUTINE VENIPUNCTURE CPT-4: 35573 09/10/2013 ROUTINE VENIPUNCTURE CPT-4: 53912 08/01/2013 URINALYSIS NONAUTO W/O SCOPE CPT-4: 33355 06/28/2013 TRIAMCINOLONE ACET INJ NOS CPT-4: J3301 05/07/2013 DRAIN/INJECT JOINT/BURSA CPT-4: 65079 05/07/2013 ROUTINE VENIPUNCTURE CPT-4: 53783 03/21/2013 ROUTINE VENIPUNCTURE CPT-4: 54929 01/17/2013 URINALYSIS NONAUTO W/O SCOPE CPT-4: 03907 01/01/2013 ROUTINE VENIPUNCTURE CPT-4: 15789 12/31/2012 ROUTINE VENIPUNCTURE CPT-4: 99798 12/20/2012 URINALYSIS NONAUTO W/O SCOPE CPT-4: 55018 11/05/2012 DRAIN/INJECT JOINT/BURSA CPT-4: 40834 09/21/2012 TRIAMCINOLONE ACET INJ NOS CPT-4: J3301 09/21/2012 URINALYSIS NONAUTO W/O SCOPE CPT-4: 27115 07/19/2012 TRIAMCINOLONE ACET INJ NOS CPT-4: J3301 07/06/2012 Pneumococcal Polysaccharide Vaccine, 23-Valent, Ad CPT-4: 45876 06/07/2012 IMMUNIZATION ADMIN CPT -4: 61468 06/07/2012 TRIAMCINOLONE ACET INJ NOS CPT-4: J3301 05/02/2012 ROUTINE VENIPUNCTURE CPT-4: 44190 02/01/2012 URINALYSIS NONAUTO W/O SCOPE CPT-4: 03859 02/01/2012 TRIAMCINOLONE ACET INJ NOS CPT-4: J3301 12/14/2011 INJ TRIGGER POINT 1/2 MUSCL CPT-4: 06117 12/14/2011 PROMETHAZINE HCL INJECTION CPT-4: J2550 11/30/2011 ROUTINE VENIPUNCTURE CPT-4: 36105 11/30/2011 TRIAMCINOLONE ACET INJ NOS CPT-4: J3301 08/01/2011 DRAIN/INJECT JOINT/BURSA CPT-4: 88481 08/01/2011 THER/PROPH/DIAG INJ SC/IM CPT-4: 19180 04/18/2011 TRIAMCINOLONE ACET INJ NOS CPT-4: J3301 04/18/2011 Vital Signs Date Vital 05/21/2018 Blood Pressure 1: 98/66 Code : 8480-6 Heart Rate 1: 76 bpm Height: 5'2" SpO2: 99% Weight: 05/16/2018 BMI: 39.7 Code: 52792-1 Heart Rate 1: 82 bpm Height: 5'2" SpO2: 99% Temperature: 35.8 (C) / 96.5 (F) Weight: 217 lbs 04/27/2018 Blood Pressure 1: 122/54 Code : 8480-6 BMI: 39.7 Code : 32824-9 Heart Rate 1 : 84 bpm Height: 5'2" SpO2: 92% 04/10/2018 Blood Pressure 1: 12068 Code : 8480-6 BMI: 39.7 Code : 34349-4 Heart Rate 1 : 87 bpm Height: 5'2" SpO2: 99% Weight: 217 lbs 03/12/2018 Blood Pressure 1: 140/70 Code : 8480-6 BMI: 40.2 Code : 40302-7 Heart Rate 1 : 78 bpm Height: 5'2" SpO2: 98% Weight: 220 lbs 02/20/2018 Blood Pressure 1: 140/70 Code : 8480-6 BMI: 40.2 Code : 37666-2 Heart Rate 1 : 96 bpm Height: 5'2" SpO2: 93% Weight: 220 lbs 11/27/2017 Blood Pressure 1: 158/78 Code : 8480-6 BMI: 40.8 Code : 24707-2 Heart Rate 1 : 100 bpm Height: 5'2" SpO2: 95% Weight: 223 lbs 10/27/2017 Blood Pressure 1: 146/70 Code : 8480-6 BMI: 41.3 Code : 26483-0 Heart Rate 1 : 82 bpm Height: 5'2" SpO2: 99% Waist Measure (cm): 119 cm Weight: 226 lbs 09/15/2017 Blood Pressure 1: 136/66 Code : 8480-6 BMI: 41.5 Code : 71683-4 Heart Rate 1 : 94 bpm Height: 5'2" SpO2: 96% Weight: 227 lbs 08/18/2017 Blood Pressure 1: 120/68 Code : 8480-6 BMI: 41.5 Code : 97413-3 Heart Rate 1 : 87 bpm Height: 5'2" SpO2: 94% Weight: 227 lbs 08/03/2017 Blood Pressure 1: 132/72 Code : 8480-6 BMI: 41.5 Code : 19142-7 Heart Rate 1 : 93 bpm Height: 5'2" SpO2: 95% Weight: 227 lbs 07/27/2017 Blood Pressure 1: 128/84 Code : 8480-6 BMI: 41.5 Code : 76386-0 Heart Rate 1 : 91 bpm Height: 5'2" SpO2: 98% Weight: 227 lbs 06/13/2017 Blood Pressure 1: 13684 Code : 8480-6 BMI: 42.6 Code : 27936-6 Heart Rate 1 : 91 bpm Height: 5'2" SpO2: 94% Weight: 233 lbs 04/21/2017 Blood Pressure 1: 142/84 Code : 8480-6 BMI: 42.8 Code : 20164-9 Heart Rate 1 : 89 bpm Height: 5'2" SpO2: 94% Weight: 234 lbs 04/18/2017 Blood Pressure 1: 140/86 Code : 8480-6 BMI: 42.8 Code : 10418-4 Heart Rate 1 : 89 bpm Height: 5'2" SpO2: 97% Weight: 234 lbs 03/27/2017 Blood Pressure 1: 148/76 Code : 8480-6 BMI: 42.6 Code : 69131-6 Heart Rate 1 : 92 bpm Height: [...] Code : 8480-6 BMI: 44.3 Code : 80981-8 Heart Rate 1 : 90 bpm Height: 5'2" SpO2: 96% Weight: 242 lbs 01/30/2017 Blood Pressure 1: 132/72 Code : 8480-6 Heart Rate 1: 97 bpm Height: 5'2" SpO2: 96% Weight: 01/16/2017 Blood Pressure 1: 138/76 Code : 8480-6 BMI: 43.3 Code : 95083-6 Heart Rate 1 : 84 bpm Height: 5'2" SpO2: 99% Weight: 237 lbs 12/13/2016 Blood Pressure 1: 144/78 Code : 8480-6 Heart Rate 1: 96 bpm Height: 5'2" SpO2: 98% Temperature: 36.6 (C) / 97.9 (F) Weight: 11/11/2016 Blood Pressure 1: 144/80 Code : 8480-6 BMI: 43.0 Code : 34580-0 Heart Rate 1 : 89 bpm Height: 5'2" SpO2: 94% Temperature: 36.1 (C) / 97.0 (F) Weight: 235 lbs 10/28/2016 Blood Pressure 1: 156/82 Code : 8480-6 BMI: 43.9 Code : 24462-1 Heart Rate 1 : 78 bpm Height: [...] Code : 8480-6 BMI: 42.4 Code : 92767-1 Heart Rate 1 : 95 bpm Height: 5'2" SpO2: 98% Weight: 232 lbs 08/09/2016 Blood Pressure 1: 138/80 Code : 8480-6 BMI: 41.0 Code : 69810-3 Heart Rate 1 : 98 bpm Height: 5'2" SpO2: 97% Weight: 224 lbs 07/26/2016 Blood Pressure 1: 148/82 Code : 8480-6 BMI: 42.4 Code : 88070-5 Heart Rate 1 : 89 bpm Height: 5'2" SpO2: 97% Weight: 232 lbs 05/24/2016 Blood Pressure 1: 146/72 Code : 8480-6 BMI: 42.4 Code : 14759-8 Heart Rate 1 : 89 bpm Height: 5'2" SpO2: 99% Weight: 232 lbs 04/19/2016 Blood Pressure 1: 130/88 Code : 8480-6 BMI: 42.4 Code : 57578-7 Heart Rate 1 : 88 bpm Height: 5'2" SpO2: 98% Weight: 232 lbs 04/11/2016 Blood Pressure 1: 140/80 Code : 8480-6 BMI: 41.7 Code : 72669-2 Heart Rate 1 : 97 bpm Height: 5'2" SpO2: 95% Weight: 228 lbs 03/21/2016 Blood Pressure 1: 138/80 Code : 8480-6 BMI: 44.4 Code : 79368-1 Height: 5'2" Weight: 243 lbs 03/11/2016 Blood Pressure 1: 138/82 Code : 8480-6 BMI: 44.4 Code : 82873-7 Heart Rate 1 : 86 bpm Height: 5'2" SpO2: 95% Weight: 243 lbs 02/26/2016 Blood Pressure 1: 130/82 Code : 8480-6 BMI: 43.9 Code : 86378-2 Heart Rate 1 : 86 bpm Height: 5'2" SpO2: 97% Weight: 240 lbs 02/02/2016 Blood Pressure 1: 136/86 Code : 8480-6 Heart Rate 1: 56 bpm Height: SpO2: 96% Weight: 12/17/2015 Blood Pressure 1: 140/80 Code : 8480-6 BMI: 40.2 Code : 95952-1 Heart Rate 1 : 100 bpm Height: 5'2" SpO2: 99% Weight: 220 lbs 12/08/2015 Blood Pressure 1: 132/86 Code : 8480-6 Heart Rate 1: 100 bpm Height: SpO2: 97% Weight: 11/27/2015 Blood Pressure 1: 128/82 Code : 8480-6 BMI: 39.3 Code : 12141-2 Heart Rate 1 : 112 bpm Height: 5'2" SpO2: 96% Weight: 215 lbs 11/12/2015 Blood Pressure 1: 168/88 Code : 8480-6 Heart Rate 1: 106 bpm Height: 5'2" SpO2: 96% Weight: 11/10/2015 Blood Pressure 1: 156/80 Code : 8480-6 Heart Rate 1: 94 bpm Height: 5'2" SpO2: 96% Weight: 10/27/2015 Blood Pressure 1: 142/76 Code : 8480-6 BMI: 40.8 Code : 57998-3 Heart Rate 1 : 86 bpm Height: 5'2" SpO2: 97% Weight: 223 lbs 09/29/2015 Blood Pressure 1: 132/88 Code : 8480-6 BMI: 41.7 Code : 05286-2 Heart Rate 1 : 104 bpm Height: 5'2" SpO2: 94% Weight: 228 lbs 09/22/2015 Blood Pressure 1: 130/80 Code : 8480-6 BMI: 41.7 Code : 86578-3 Heart Rate 1 : 89 bpm Height: 5'2" SpO2: 97% Weight: 228 lbs 09/01/2015 Blood Pressure 1: 138/88 Code : 8480-6 BMI: 40.6 Code : 95889-3 Heart Rate 1 : 95 bpm Height: 5'2" SpO2: 95% Weight: 222 lbs 08/10/2015 Blood Pressure 1: 140/82 Code : 8480-6 BMI: 41.0 Code : 12290-2 Heart Rate 1 : 84 bpm Height: 5'2" SpO2: 97% Weight: 224 lbs 06/26/2015 Blood Pressure 1: 152/72 Code : 8480-6 BMI: 41.2 Code : 37678-4 Heart Rate 1 : 92 bpm Height: 5'2" SpO2: 96% Weight: 225 lbs 04/14/2015 Blood Pressure 1: 158/86 Code : 8480-6 BMI: 41.2 Code : 96330-8 Heart Rate 1 : 63 bpm Height: 5'2" SpO2: 93% Weight: 225 lbs 03/03/2015 Blood Pressure 1: 152/80 Code : 8480-6 BMI: 40.1 Code : 60776-4 Heart Rate 1 : 101 bpm Height: 5'2" SpO2: 97% Weight: 219 lbs 01/15/2015 Blood Pressure 1: 127/76 Code : 8480-6 BMI: 40.6 Code : 86853-5 Heart Rate 1 : 109 bpm Height: 5'2" SpO2: 97% Weight: 222 lbs 01/01/2015 Blood Pressure 1: 136/64 Code : 8480-6 BMI: 40.4 Code : 51427-9 Heart Rate 1 : 94 bpm Height: 5'2" SpO2: 96% Weight: 221 lbs 12/25/2014 Blood Pressure 1: 146/80 Code : 8480-6 Heart Rate 1: 95 bpm Height: 5'2" SpO2: 94% 11/04/2014 Blood Pressure 1: 110/70 Code : 8480-6 BMI: 40.2 Code : 86910-9 Heart Rate 1 : 878 bpm Height: 5'2" SpO2: 97% Weight: 220 lbs 09/08/2014 Blood Pressure 1: 142/78 Code : 8480-6 BMI: 39.5 Code : 20472-0 Heart Rate 1 : 97 bpm Height: 5'2" SpO2: 98% Weight: 216 lbs 08/29/2014 Blood Pressure 1: 140/90 Code : 8480-6 Blood Pressure 2: 120/70 Code: 8480-6 BMI: 40.2 Code: 82876-3 Heart Rate 1: 88 bpm Height: 5'2" Weight: 220 lbs 06/30/2014 Blood Pressure 1: 132/74 Code : 8480-6 BMI: 39.1 Code : 25410-5 Heart Rate 1 : 76 bpm Height: 5'2" Weight: 214 lbs 06/12/2014 Blood Pressure 1: 118/76 Code : 8480-6 BMI: 40.4 Code : 60117-8 Heart Rate 1 : 86 bpm Height: 5'2" SpO2: 96% Weight: 221 lbs 05/26/2014 Blood Pressure 1: 128/78 Code : 8480-6 BMI: 39.5 Code : 27123-3 Heart Rate 1 : 76 bpm Height: 5'2" Weight: 216 lbs 04/15/2014 Blood Pressure 1: 144/72 Code : 8480-6 BMI: 40.8 Code : 57624-1 Heart Rate 1 : 60 bpm Height: 5'2" Weight: 223 lbs 03/25/2014 Blood Pressure 1: 118/72 Code : 8480-6 BMI: 41.2 Code : 66645-4 Heart Rate 1 : 80 bpm Height: 5'2" Weight: 225 lbs 03/03/2014 Blood Pressure 1: 138/86 Code : 8480-6 BMI: 41.5 Code : 30845-3 Heart Rate 1 : 104 bpm Height: 5'2" Temperature: 36.1 (C) / 97.0 (F) Weight: 227 lbs 02/13/2014 Blood Pressure 1: 142/88 Code : 8480-6 BMI: 40.8 Code : 38487-1 Heart Rate 1 : 88 bpm Height: 5'2" Weight: 223 lbs 01/27/2014 Blood Pressure 1: 124/68 Code : 8480-6 BMI: 39.9 Code : 75841-3 Heart Rate 1 : 89 bpm Height: 5'2" SpO2: 94% Weight: 218 lbs 12/26/2013 Blood Pressure 1: 108/52 Code : 8480-6 BMI: 41.2 Code : 82307-2 Heart Rate 1 : 96 bpm Height: 5'2" Weight: 225 lbs 12/12/2013 Blood Pressure 1: 158/88 Code : 8480-6 BMI: 42.6 Code : 01961-4 Heart Rate 1 : 80 bpm Height: 5'2" Weight: 233 lbs 11/14/2013 Blood Pressure 1: 120/60 Code : 8480-6 BMI: 42.4 Code : 79242-4 Heart Rate 1 : 96 bpm Height: 5'2" Temperature: 5423.3 (C ) / 9794.0 (F) Weight: 232 lbs 10/21/2013 Blood Pressure 1: 100/60 Code : 8480-6 BMI: 41.9 Code : 45735-7 Heart Rate 1 : 96 bpm Height: 5'2" Weight: 229 lbs 10/03/2013 Blood Pressure 1: 122/72 Code : 8480-6 BMI: 42.3 Code : 07001-8 Heart Rate 1 : 84 bpm Height: 5'2" Weight: 231 lbs 09/27/2013 Blood Pressure 1: 112/58 Code : 8480-6 Heart Rate 1: 72 bpm SpO2: 93% Temperature: 36.2 (C) / 97.1 (F) Weight: 09/23/2013 Blood Pressure 1: 108/76 Code : 8480-6 BMI: 42.4 Code : 25619-3 Heart Rate 1 : 95 bpm Height: 5'2" SpO2: 96% Weight: 232 lbs 09/20/2013 Blood Pressure 1: 150/88 Code : 8480-6 BMI: 42.4 Code : 16640-8 Heart Rate 1 : 104 bpm Height: 5'2" Weight: 232 lbs 09/10/2013 Blood Pressure 1: 112/62 Code : 8480-6 Heart Rate 1: 88 bpm Weight: 238 lbs 08/19/2013 Blood Pressure 1: 102/58 Code : 8480-6 BMI: 43.7 Code : 13018-1 Heart Rate 1 : 80 bpm Height: 5'2" Weight: 239 lbs 08/12/2013 Blood Pressure 1: 110/60 Code : 8480-6 BMI: 43.3 Code : 64703-6 Heart Rate 1 : 90 bpm Height: 5'2" SpO2: 96% Weight: 236 lbs 8 oz 08/01/2013 Blood Pressure 1: 128/72 Code : 8480-6 BMI: 42.6 Code : 13713-1 Heart Rate 1 : 78 bpm Height: 5'2" SpO2: 97% Weight: 233 lbs 07/19/2013 Blood Pressure 1: 100/60 Code : 8480-6 BMI: 44.3 Code : 85016-9 Heart Rate 1 : 92 bpm Height: 5'2" Temperature: 36.2 (C) / 97.2 (F) Weight: 242 lbs 07/15/2013 Blood Pressure 1: 180/92 Code : 8480-6 Heart Rate 1: 115 bpm SpO2: 98% Weight: 06/27/2013 Blood Pressure 1: 114/64 Code : 8480-6 BMI: 44.1 Code : 21745-1 Heart Rate 1 : 114 bpm Height: 5'2" SpO2: 93% Weight: 241 lbs 06/10/2013 Blood Pressure 1: 174/86 Code : 8480-6 BMI: 44.1 Code : 63550-9 Heart Rate 1 : 132 bpm Height: 5'2" SpO2: 94% Temperature: 35.6 (C) / 96.0 (F) Weight: 241 lbs 05/07/2013 Blood Pressure 1: 160/88 Code : 8480-6 BMI: 43.5 Code : 53763-3 Heart Rate 1 : 108 bpm Height: 5'2" SpO2: 96% Weight: 238 lbs 04/16/2013 Blood Pressure 1: 116/62 Code : 8480-6 BMI: 44.6 Code : 35776-7 Heart Rate 1 : 90 bpm Height: 5'2" SpO2: 94% Weight: 244 lbs 03/21/2013 Blood Pressure 1: 102/64 Code : 8480-6 BMI: 42.8 Code : 08939-8 Height: 5'2" Weight: 234 lbs 02/12/2013 Blood Pressure 1: 130/78 Code : 8480-6 BMI: 42.0 Code : 55866-5 Heart Rate 1 : 100 bpm Height: 5'2" Weight: 229 lbs 8 oz 02/04/2013 Blood Pressure 1: 126/68 Code : 8480-6 BMI: 44.3 Code : 60382-8 Heart Rate 1 : 88 bpm Height: 5'2" Weight: 242 lbs 01/17/2013 Blood Pressure 1: 132/76 Code : 8480-6 Heart Rate 1: 121 bpm SpO2: 97% Weight: 242 lbs 12/31/2012 Blood Pressure 1: 144/90 Code : 8480-6 BMI: 43.0 Code : 65009-6 Heart Rate 1 : 96 bpm Height: 5'2" Temperature: 36.2 (C) / 97.2 (F) Weight: 235 lbs 12/20/2012 Blood Pressure 1: 156/96 Code : 8480-6 BMI: 42.4 Code : 91253-0 Heart Rate 1 : 96 bpm Height: [...] Code : 8480-6 BMI: 38.8 Code : 14774-5 Heart Rate 1 : 96 bpm Height: 5'2" Temperature: 36.3 (C) / 97.3 (F) Weight: 212 lbs 08/23/2012 Blood Pressure 1: 116/72 Code : 8480-6 BMI: 38.3 Code : 73243-1 Heart Rate 1 : 92 bpm Height: 5'2" Weight: 209 lbs 8 oz 08/13/2012 Blood Pressure 1: 140/92 Code : 8480-6 BMI: 37.3 Code : 43522-9 Heart Rate 1 : 104 bpm Height: 5'2" Weight: 204 lbs 08/07/2012 Blood Pressure 1: 148/98 Code : 8480-6 BMI: 36.6 Code : 95223-9 Heart Rate 1 : 102 bpm Height: [...] Code : 8480-6 BMI: 35.3 Code : 72716-6 Heart Rate 1 : 105 bpm Height: [...] december - she was seen by her physical sciences professor again in mid 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 She states that she saw her physical sciences professor and was to be started on another [...] lesion Alleviating Factors medication 09/10/[address] [facility] on Monday and start on Cipro diabetes [...] differently. States she did eat BBQ from [employer] yesterday for lunch. hypertension Quality chronic [...] data Encounters Encounter Performer Location Codes Date ([id number]) 15205 EST. PATIENT, LEVEL IV Diagnosis: Other hypotension[ICD10: I95.89] Diagnosis: Type 2 diabetes mellitus with hyperglycemia[ICD10: E11.65] Diagnosis: Acute recurrent pansinusitis[ICD10: J01.41] Diagnosis: Headache[ICD10: R51] Diagnosis: Slurred speech[ICD10: R47.81] Diagnosis: Repeated falls[ICD10: R29.6] Rika Motta MD, [facility] CPT-4: 94051 05/21/2018 ([id number]) 68360 EST. PATIENT, LEVEL IV Diagnosis: Essential (primary) hypertension[ICD10: I10] Diagnosis: Generalized anxiety disorder[ICD10: F41.1] Tessie Motta MD, [facility] CPT-4: 90840 05/16/2018 ([id number]) 25013 EST. PATIENT, LEVEL III Diagnosis: Cough[ICD10: R05] Diagnosis: Chronic maxillary sinusitis[ICD10: J32.0] Diagnosis: Type 2 diabetes mellitus with hyperglycemia[ICD10: E11.65] Rika Motta MD, [facility] CPT-4: 00488 04/27/2018 [id number]) 39705 EST. PATIENT, LEVEL IV Diagnosis: Essential (primary) hypertension[ICD10: I10] Diagnosis: Type 2 diabetes mellitus with hyperglycemia[ICD10: E11.65] Diagnosis: Generalized anxiety disorder[ICD10: F41.1] Diagnosis: Weakness[ICD10: R53.1] Rika Motta MD, [facility] CPT-4: 45429 04/10/2018 ([id number]) 38832 EST. PATIENT, LEVEL IV Diagnosis: Type 2 diabetes mellitus with hyperglycemia[ICD10: E11.65] Diagnosis: Low back pain[ICD10: M54.5] Diagnosis: Essential (primary) hypertension[ICD10: I10] Diagnosis: Generalized anxiety disorder[ICD10: F41.1] Rika Motta MD, [facility] CPT-4: 91810 03/12/2018 ([id number]) 61141 EST. PATIENT, LEVEL III Diagnosis: Type 2 diabetes mellitus with hyperglycemia[ICD10: E11.65] Diagnosis: Essential (primary) hypertension[ICD10: I10] Diagnosis: Dysuria[ICD10: R30.0] Diagnosis: Vitamin D deficiency, unspecified[ICD10: E55.9] Diagnosis: Low back pain[ICD10: M54.5] Rika Motta MD, [facility] CPT-4: 30310 02/20/2018 ([id number]) 60882 EST. PATIENT, LEVEL III Diagnosis: Dysuria[ICD10: R30.0] Diagnosis: Essential (primary) hypertension[ICD10: I10] Rika Motta MD, [facility] CPT-4: 37849 11/27/2017 ([id number]) 22533 EST. PATIENT, LEVEL III Diagnosis: Type 2 diabetes mellitus with hyperglycemia[ICD10: E11.65] Diagnosis: Chronic pain syndrome[ICD10: G89.4] Rika Motta MD, [facility] CPT-4: 04893 09/15/2017 ([id number]) 57541 EST. 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 PATIENT, LEVEL III Diagnosis: Chronic maxillary sinusitis[ICD10: J32.0] Diagnosis: Type 2 diabetes mellitus with hyperglycemia[ICD10: E11.65] Diagnosis: Hordeolum externum left upper eyelid[ICD10: H00.014] Rika Motta MD, [facility] CPT-4: 29090 08/03/2017 ([id number]) 86621 EST. PATIENT, LEVEL IV Diagnosis: Type 2 diabetes mellitus with hyperglycemia[ICD10: E11.65] Diagnosis: Hordeolum externum left upper eyelid[ICD10: H00.014] Diagnosis: Essential (primary) hypertension[ICD10: I10] Diagnosis: Chronic obstructive pulmonary disease, unspecified[ICD10: J44.9] Rika Motta MD, [facility] CPT-4: 24498 07/27/2017 ([id number]) 20891 EST. PATIENT, LEVEL IV Diagnosis: Type 2 diabetes mellitus with hyperglycemia[ICD10: E11.65] Diagnosis: Essential (primary) hypertension[ICD10: I10] Tessie Motta MD, [facility] CPT-4: 24163 06/13/2017 30823 EST. PATIENT, LEVEL IV Diagnosis: Periapical abscess without sinus[ICD10: K04.7] Arlette Motta MD, [facility] CPT-4: 28986 04/21/2017 ([id number]) 76667 EST. PATIENT, LEVEL IV Diagnosis: Type 2 diabetes mellitus with hyperglycemia[ICD10: E11.65] Diagnosis: Cellulitis of abdominal wall[ICD10: L03.311] Diagnosis: Chronic pain syndrome[ICD10: G89.4] Diagnosis: Essential (primary) hypertension[ICD10: I10] Diagnosis: Unsteadiness on feet[ICD10: R26.81] Rika Motta MD, [facility] CPT-4: 54787 04/18/2017 ([id number]) 52947 EST. PATIENT, LEVEL IV Diagnosis: Type 2 diabetes mellitus with hyperglycemia[ICD10: E11.65] Diagnosis: Hypokalemia[ICD10: E87.6] Diagnosis: Essential (primary) hypertension[ICD10: I10] Diagnosis: Paroxysmal atrial fibrillation[ICD10: I48.0] Rika Motta MD, [facility] CPT-4: 04307 03/27/2017 ([id number]) 43957 EST. PATIENT, LEVEL IV Diagnosis: Essential (primary) hypertension[ICD10: I10] Diagnosis: Type 2 diabetes mellitus with hyperglycemia[ICD10: E11.65] Diagnosis: Hypokalemia[ICD10: E87.6] Diagnosis: Generalized abdominal pain[ICD10: R10.84] Rika Motta MD, [facility] CPT-4: 89602 02/27/2017 ([id number] 40783 EST. PATIENT, LEVEL III Diagnosis: Drug induced constipation[ICD10: K59.03] Rika Motta MD, [facility] CPT-4: 26683 02/21/2017 ([id number]) 95764 EST. PATIENT, LEVEL IV Diagnosis: Generalized abdominal pain[ICD10: R10.84] Diagnosis: Hypokalemia[ICD10: E87.6] Diagnosis: Hypomagnesemia[ICD10: E83.42] Rika Motta MD, [facility] CPT-4: 53119 02/17/2017 ([id number]) 76304 EST. PATIENT, LEVEL IV Diagnosis: Paroxysmal atrial fibrillation[ICD10: I48.0] Diagnosis: Essential (primary) hypertension[ICD10: I10] Diagnosis: Chronic obstructive pulmonary disease, unspecified[ICD10: J44.9] Diagnosis: Type 2 diabetes mellitus with hyperglycemia[ICD10: E11.65] Diagnosis: Diarrhea, unspecified[ICD10: R19.7] Rika Motta MD, [facility] CPT-4: 86170 02/13/2017 ([id number]) 06476 EST. PATIENT, LEVEL IV Diagnosis: Type 2 diabetes mellitus with hyperglycemia[ICD10: E11.65] Diagnosis: Pain in right shoulder[ICD10: M25.511] Diagnosis: Chronic maxillary sinusitis[ICD10: J32.0] Rika Motta MD, [facility] CPT-4: 31487 01/30/2017 ([id number]) 80845 EST. PATIENT, LEVEL IV Diagnosis: Essential (primary) hypertension[ICD10: I10] Diagnosis: Type 2 diabetes mellitus with hyperglycemia[ICD10: E11.65] Diagnosis: Hypothyroidism, unspecified[ICD10: E03.9] Diagnosis: Generalized anxiety disorder[ICD10: F41.1] Diagnosis: Chronic pain syndrome[ICD10: G89.4] Diagnosis: Restless legs syndrome[ICD10: G25.81] Diagnosis: Obstructive sleep apnea (adult) (pediatric)[ICD10: G47.33] Rika Motta MD, [facility] CPT-4: 82025 01/16/2017 99098 EST. PATIENT, LEVEL IV Diagnosis: Other acute sinusitis[ICD10: J01.80] Diagnosis: Diplopia[ICD10: H53.2] Arlette Motta MD, [facility] CPT-4: 07949 12/13/2016 ([id number]) 34220 EST. PATIENT, LEVEL IV Diagnosis: Essential (primary) hypertension[ICD10: I10] Diagnosis: Fasciculation[ICD10: R25.3] Diagnosis: Generalized anxiety disorder[ICD10: F41.1] Diagnosis: Other obesity due to excess calories[ICD10: E66.09] Diagnosis: Zoster without complications[ICD10: B02.9] Diagnosis: Unilateral primary osteoarthritis, right knee[ICD10: M17.11] Diagnosis: Unsteadiness on feet[ICD10: R26.81] Rika Motta MD, [facility] CPT-4: 31954 11/11/2016 ([id number]) 34541 EST. PATIENT, LEVEL IV Diagnosis: Zoster without complications[ICD10: B02.9] Diagnosis: Type 2 diabetes mellitus with hyperglycemia[ICD10: E11.65] Diagnosis: Vomiting, unspecified[ICD10: R11.10] Rika Motta MD, [facility] CPT-4: 73262 10/28/2016 ([id number]) 05605 EST. PATIENT, LEVEL III Diagnosis: Pain in right knee[ICD10: M25.561] Diagnosis: Zoster without complications[ICD10: B02.9] Rika Motta MD, [facility] CPT-4: 23806 10/13/2016 ([id number]) 75558 EST. PATIENT, LEVEL IV Diagnosis: Acute recurrent maxillary sinusitis[ICD10: J01.01] Diagnosis: Low back pain[ICD10: M54.5] Diagnosis: Pain in right knee[ICD10: M25.561] Diagnosis: Allergic rhinitis due to pollen[ICD10: J30.1] Rika Motta MD, [facility] CPT-4: 93587 09/23/2016 ([id number]) 35982 EST. PATIENT, LEVEL IV Diagnosis: Pain in right shoulder[ICD10: M25.511] Diagnosis: Type 2 diabetes mellitus with hyperglycemia[ICD10: E11.65] Diagnosis: Cervicalgia[ICD10: M54.2] Diagnosis: Candidiasis of skin and nail[ICD10: B37.2] Diagnosis: Low back pain[ICD10: M54.5] Rika Motta MD, [facility] CPT-4: 39971 09/13/2016 ([id number]) 90728 EST. 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 PATIENT, LEVEL IV Diagnosis: Type 2 diabetes mellitus with hyperglycemia[ICD10: E11.65] Diagnosis: Candidiasis of skin and nail[ICD10: B37.2] Diagnosis: Chronic obstructive pulmonary disease, unspecified[ICD10: J44.9] Diagnosis: Paroxysmal atrial fibrillation[ICD10: I48.0] Diagnosis: Pneumonia, unspecified organism[ICD10: J18.9] Rika Motta MD, [facility] CPT-4: 22346 07/26/2016 ([id number]) 42636 EST. PATIENT, LEVEL IV Diagnosis: Type 2 diabetes mellitus with hyperglycemia[ICD10: E11.65] Diagnosis: Generalized anxiety disorder[ICD10: F41.1] Diagnosis: Essential (primary) hypertension[ICD10: I10] Diagnosis: Chronic pain syndrome[ICD10: G89.4] Rika Motta MD, [facility] CPT-4: 58289 05/24/2016 ([id number]) 98202 EST. PATIENT, LEVEL IV Diagnosis: Menopausal and female climacteric states[ICD10: N95.1] Diagnosis: Type 2 diabetes mellitus with hyperglycemia[ICD10: E11.65] Diagnosis: Generalized anxiety disorder[ICD10: F41.1] Rika Motta MD, [facility] CPT-4: 42306 04/19/2016 ([id number]) 50131 EST. PATIENT, LEVEL IV Diagnosis: Type 2 diabetes mellitus with hyperglycemia[ICD10: E11.65] Diagnosis: Generalized anxiety disorder[ICD10: F41.1] Diagnosis: Essential (primary) hypertension[ICD10: I10] Diagnosis: Dysuria[ICD10: R30.0] Rika Motta MD, [facility] CPT-4: 41279 04/11/2016 47057 37948 EST. PATIENT, LEVEL IV Diagnosis: Generalized anxiety disorder[ICD10: F41.1] Diagnosis: Major depressive disorder, single episode, mild[ICD10: F32.0] Diagnosis: Hypothyroidism, unspecified[ICD10: E03.9] Diagnosis: Type 2 diabetes mellitus with hyperglycemia[ICD10: E11.65] Rika Motta MD, [facility] CPT-4: 84718 03/21/2016 38764 94364 EST. PATIENT, LEVEL IV Diagnosis: Type 2 diabetes mellitus with hyperglycemia[ICD10: E11.65] Diagnosis: Cellulitis of right lower limb[ICD10: L03.115] Diagnosis: Other elevated white blood cell count[ICD10: D72.828] Diagnosis: Localized edema[ICD10: R60.0] Rika Motta MD, [facility] CPT-4: 40510 03/11/2016 ([id number]) 45394 EST. PATIENT, LEVEL IV Diagnosis: Type 2 diabetes mellitus with hyperglycemia[ICD10: E11.65] Diagnosis: Localized edema[ICD10: R60.0] Diagnosis: Other conjunctivitis[ICD10: H10.89] Diagnosis: Obstructive sleep apnea (adult) (pediatric)[ICD10: G47.33] Diagnosis: Unspecified asthma, uncomplicated[ICD10: J45.909] Diagnosis: VAC STREP PNEUMONIAE-FLU[ICD10: Z23] Rika Motta MD, [facility] CPT-4: 33860 02/26/2016 62220 73998 EST. PATIENT, LEVEL IV Diagnosis: Essential (primary) hypertension[ICD10: I10] Diagnosis: Paroxysmal atrial fibrillation[ICD10: I48.0] Diagnosis: Type 2 diabetes mellitus with hyperglycemia[ICD10: E11.65] Diagnosis: Obstructive sleep apnea (adult) (pediatric)[ICD10: G47.33] Diagnosis: Chronic obstructive pulmonary disease, unspecified[ICD10: J44.9] Rika Motta MD, [facility] CPT-4: 79221 02/02/2016 ([id number] 84285 EST. 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 PATIENT, LEVEL IV Diagnosis: Type 2 diabetes mellitus with hyperglycemia[ICD10: E11.65] Diagnosis: Generalized anxiety disorder[ICD10: F41.1] Diagnosis: Essential (primary) hypertension[ICD10: I10] Diagnosis: Restless legs syndrome[ICD10: G25.81] Diagnosis: Dysuria[ICD10: R30.0] Rika Motta MD, [facility] CPT-4: 89792 11/27/2015 70843 EST. PATIENT, LEVEL IV Diagnosis: Addisonian crisis[ICD10: E27.2] Arlette Motta MD, [facility] CPT-4 : 03292 11/12/2015 54244 EST. PATIENT, LEVEL IV Diagnosis: Acute bronchitis due to other specified organisms[ICD10: J20.8] Diagnosis: Other acute sinusitis[ICD10: J01.80] Diagnosis: Other malaise[ICD10: R53.81] Diagnosis: Cough[ICD10: R05] Arlette Motta MD, [facility] CPT-4: 33647 11/10/2015 64961 EST. PATIENT, LEVEL IV Diagnosis: Pain in left knee[ICD10: M25.562] Diagnosis: Cellulitis of right toe[ICD10: L03.031] Arlette Motta MD, [facility] CPT-4: 65359 10/27/2015 ([id number]) 04147 EST. PATIENT, LEVEL IV Diagnosis: Essential (primary) hypertension[ICD10: I10] Diagnosis: Localized edema[ICD10: R60.0] Diagnosis: Type 2 diabetes mellitus with hyperglycemia[ICD10: E11.65] Rika Motta MD, [facility] CPT-4: 00293 09/22/2015 ([id number]) 89849 EST. PATIENT, LEVEL IV Diagnosis: Essential (primary) hypertension[ICD10: I10] Diagnosis: Type 2 diabetes mellitus with hyperglycemia[ICD10: E11.65] Diagnosis: Cellulitis of right toe[ICD10: L03.031] Rika Motta MD, [facility] CPT-4: 23722 09/01/2015 ([id number]) 69100 EST. PATIENT, LEVEL IV Diagnosis: Type 2 diabetes mellitus with hyperglycemia[ICD10: E11.65] Diagnosis: Essential (primary) hypertension[ICD10: I10] Diagnosis: Generalized anxiety disorder[ICD10: F41.1] Diagnosis: Hypothyroidism, unspecified[ICD10: E03.9] Diagnosis: Body mass index (BMI) 40.0-44.9, adult[ICD10: Z68.41] Rika Motta MD, [facility] CPT-4: 95833 08/10/2015 30157 EST. PATIENT, LEVEL IV Diagnosis: Acute bronchitis due to other specified organisms[ICD10: J20.8] Diagnosis: Pain in left knee[ICD10: M25.562] Diagnosis: Type 2 diabetes mellitus with hyperglycemia[ICD10: E11.65] Arlette Motta MD, [facility] CPT-4: 30336 06/26/2015 ([id number]) 61796 EST. PATIENT, LEVEL IV Diagnosis: Cellulitis of right lower limb[ICD10: L03.115] Diagnosis: Type 2 diabetes mellitus with hyperglycemia[ICD10: E11.65] Diagnosis: Essential (primary) hypertension[ICD10: I10] Diagnosis: Edema, unspecified[ICD10: R60.9] Rika Motta MD, [facility] CPT-4: 26282 04/14/2015 ([id number]) 16985 EST. PATIENT, LEVEL IV Diagnosis: Essential (primary) hypertension[ICD10: I10] Diagnosis: Type 2 diabetes mellitus with hyperglycemia[ICD10: E11.65] Diagnosis: Localized edema[ICD10: R60.0] Diagnosis: Dysuria[ICD10: R30.0] Rika Motta MD, [facility] CPT-4: 81918 03/03/2015 ([id number]) 02117 EST. PATIENT, LEVEL III Diagnosis: Blister of leg[ICD9: 916.2] Diagnosis: Rash[ICD9: 782.1] Diagnosis: EDEMA[ICD9: 782.3] Tessie Motta MD, [facility] CPT-4: 05856 01/15/2015 ([id number]) 74504 EST. PATIENT, LEVEL IV Diagnosis: Cellulitis, leg[ICD9: 682.6] Diagnosis: DIABETES TYPE II[ICD9: 250.00] Tessie Motta MD, [facility] CPT- 4: 69195 01/01/2015 ([id number]) Miscellaneous no charge Diagnosis: CVA (cerebral vascular accident)[ICD9: 434.91] Isabella Motta MD, [facility] CPT-4: 77283 12/25/2014 ([id number]) 97233 EST. PATIENT, LEVEL IV Diagnosis: ESSENTIAL HYPERTENSION[ICD9: 401.9] Diagnosis: DM W/O COMPLICATION TYPE II, UNCONTROLLED[ICD9: 250.02] Diagnosis: EDEMA[ICD9: 782.3] Diagnosis: Dysuria[ICD9: 788.1] Rika Motta MD, [facility] CPT-4: 55842 11/04/2014 ([id number]) 28155 EST. PATIENT, LEVEL IV Diagnosis: EDEMA[ICD9: 782.3] Diagnosis: Cellulitis of right leg[ICD9: 682.6] Diagnosis: Allergic rhinitis[ICD9: 477.9] Rika Motta MD, [facility] CPT-4: 82580 09/08/2014 ([id number]) 21397 EST. PATIENT, LEVEL IV Diagnosis: EDEMA[ICD9: 782.3] Diagnosis: ESSENTIAL HYPERTENSION[ICD9: 401.9] Diagnosis: DIABETES TYPE II[ICD9: 250.00] Diagnosis: Cellulitis of right leg[ICD9: 682.6] Rika Motta MD, [facility] CPT-4: 08823 08/29/2014 ([id number]) 05196 EST. PATIENT, LEVEL III Diagnosis: EDEMA[ICD9: 782.3] Diagnosis: DIABETES TYPE II[ICD9: 250.00] Tessie Motta MD [facility] CPT- 4: 87610 06/30/2014 ([id number]) 20819 EST. PATIENT, LEVEL IV Diagnosis: EDEMA[ICD9: 782.3] Diagnosis: DM W/O COMPLICATION TYPE II, UNCONTROLLED[ICD9: 250.02] Diagnosis: Sciatica[ICD9: 724.3] Tessie Motta MD [facility] CPT-4: 16628 06/12/2014 ([id number]) 96781 EST. PATIENT, LEVEL III Diagnosis: Cellulitis, leg[ICD9: 682.6] Diagnosis: EDEMA[ICD9: 782.3] Rika Motta MD [facility] CPT-4: 50167 05/26/2014 ([id number]) 76522 EST. PATIENT, LEVEL IV Diagnosis: DIABETES TYPE II[ICD9: 250.00] Diagnosis: Chronic sinusitis[ICD9: 473.9] Tessie Motta MD, [facility] CPT- 4: 77511 04/15/2014 ([id number]) 42218 EST. PATIENT, LEVEL IV Diagnosis: DM W/O COMPLICATION TYPE II, UNCONTROLLED[ICD9: 250.02] Diagnosis: CHRONIC SINUSITIS[ICD9: 473.9] Diagnosis: EDEMA[ICD9: 782.3] Diagnosis: Right knee pain[ICD9: 719.46] Rika Motta MD [facility] CPT-4: 33601 03/25/2014 ([id number]) 34408 EST. PATIENT, LEVEL IV Diagnosis: Blister of leg[ICD9: 916.2] Diagnosis: EDEMA[ICD9: 782.3] Diagnosis: DM W/O COMPLICATION TYPE II, UNCONTROLLED[ICD9: 250.02] Diagnosis: ESSENTIAL HYPERTENSION[ICD9: 401.9] Rika Motta MD [facility] CPT-4: 36643 03/03/2014 ([id number]) 41808 EST. PATIENT, LEVEL IV Diagnosis: CELLULITIS OF LEG[ICD9: 682.6] Diagnosis: Diabetes mellitus type 2, uncontrolled[ICD9: 250.02] Diagnosis: ESSENTIAL HYPERTENSION[ICD9: 401.9] Diagnosis: EDEMA[ICD9: 782.3] Tessie Motta MD [facility] CPT-4: 00605 02/13/2014 ([id number]) 72923 EST. PATIENT, LEVEL IV Diagnosis: Diabetes mellitus type 2, uncontrolled[ICD9: 250.02] Tessie Motta MD [facility] CPT-4: 23877 01/27/2014 ([id number]) 81915 EST. PATIENT, LEVEL III Diagnosis: OPEN WND KNEE/LEG/ANKLE[ICD9: 891.0] Diagnosis: EDEMA[ICD9: 782.3] Rika Motta MD, [facility] CPT-4: 31632 12/26/2013 ([id number]) 63745 EST. PATIENT, LEVEL III Diagnosis: Cellulitis of right leg[ICD9: 682.6] Diagnosis: OPEN WND KNEE/LEG/ANKLE[ICD9: 891.0] Rika Motta MD [facility] CPT-4: 18717 12/12/2013 ([id number]) 37945 EST. PATIENT, LEVEL IV Diagnosis: Asthma exacerbation[ICD9: 493.92] Diagnosis: COUGH[ICD9: 786.2] Diagnosis: EDEMA[ICD9: 782.3] Rika Motta MD [facility] CPT-4: 42856 11/14/2013 ([id number]) 55818 EST. PATIENT, LEVEL III Diagnosis: OPEN WND KNEE/LEG/ANKLE[ICD9: 891.0] Diagnosis: EDEMA[ICD9: 782.3] Rika Motta MD [facility] CPT-4: 84448 10/21/2013 ([id number]) 17764 EST. PATIENT, LEVEL IV Diagnosis: ESSENTIAL HYPERTENSION[SNOMED: 52152028] Diagnosis: Right knee pain[ICD9: 719.46] Diagnosis: OPEN WND KNEE/LEG/ANKLE[ICD9: 891.0] Rika Motta MD, [facility] CPT-4: 79468 10/03/2013 ([id number]) Miscellaneous no charge Diagnosis: Open wound of leg[ICD9: 891.0] Rika Motta MD, [facility] CPT-4: 32196 09/27/2013 48916 EST. PATIENT, LEVEL II Diagnosis: Open wound of leg[ICD9: 891.0] Diagnosis: Wrist pain, left[ICD9: 719.43] Rika Motta MD, [facility] CPT-4: 96274 09/23/2013 ([id number]) 31738 EST. PATIENT, LEVEL IV Diagnosis: CELLULITIS OF LEG[ICD9: 682.6] Diagnosis: ESSENTIAL HYPERTENSION[SNOMED: 02444613] Diagnosis: EDEMA[ICD9: 782.3] Rika Motta MD, [facility] CPT-4: 70157 09/20/2013 ([id number]) 57497 EST. PATIENT, LEVEL IV Diagnosis: Open wound of right lower leg[ICD9: 891.0] Diagnosis: DM W/O COMPLICATION TYPE II, UNCONTROLLED[SNOMED: 02564561] Diagnosis: Edema[ICD9: 782.3] Rika Motta MD, [facility] CPT-4: 83115 09/10/2013 ([id number]) 01554 EST. PATIENT, LEVEL III Diagnosis: DM W/O COMPLICATION TYPE II, UNCONTROLLED[SNOMED: 35208745] Diagnosis: EDEMA[ICD9: 782.3] Tessie Motta MD, [facility] CPT-4: 85117 08/19/2013 ([id number]) 09615 EST. PATIENT, LEVEL IV Diagnosis: EDEMA[ICD9: 782.3] Diagnosis: DIABETES TYPE II[SNOMED: 333460149] Diagnosis: HYPOTHYROIDISM[ICD9: 244.9] Diagnosis: LUMBAGO[ICD9: 724.2] Diagnosis: SCIATICA[ICD9: 724.3] Tessie Motta MD, [facility] CPT-4: 93931 08/12/2013 ([id number]) 18593 EST. PATIENT, LEVEL IV Diagnosis: DIABETES TYPE II[SNOMED: 235163854] Diagnosis: EDEMA[ICD9: 782.3] Diagnosis: HYPOTHYROIDISM[ICD9: 244.9] Diagnosis: Encounter for long-term (current) use of other medications[ICD9: V58.69] Diagnosis: LUMBAGO[ICD9: 724.2] Rika Motta MD, [facility] CPT-4: 37360 08/01/2013 ([id number]) 19698 EST. PATIENT, LEVEL III Diagnosis: Blister of right foot[ICD9: 917.2] Rika Motta MD [facility] CPT-4: 64487 07/19/2013 ([id number]) 31780 EST. PATIENT, LEVEL III Diagnosis: Cellulitis of right leg[ICD9: 682.6] Diagnosis: ESSENTIAL HYPERTENSION[SNOMED: 89541103] Diagnosis: EDEMA[ICD9: 782.3] Rika Motta MD, [facility] CPT-4: 39003 07/15/2013 ([id number]) 12554 EST. PATIENT, LEVEL IV Diagnosis: DIABETES TYPE II[SNOMED: 041823668] Diagnosis: BACKACHE[ICD9: 724.5] Diagnosis: Muscle spasms of neck[ICD9: 728.85] Tessie Motta MD [facility] CPT-4: 93649 06/27/2013 ([id number]) 64101 EST. PATIENT, LEVEL IV Diagnosis: DM W/O COMPLICATION TYPE II, UNCONTROLLED[SNOMED: 65642099] Diagnosis: EDEMA[ICD9: 782.3] Diagnosis: OBESITY[ICD9: 278.00] Diagnosis: WHEEZING[ICD9: 786.07] Tessie Motta MD, [facility] CPT-4: 29060 06/10/2013 ([id number]) 59338 EST. PATIENT, LEVEL IV Diagnosis: CHRONIC SINUSITIS[ICD9: 473.9] Diagnosis: WHEEZING[ICD9: 786.07] Diagnosis: ACUTE BRONCHITIS[ICD9: 466.0] Diagnosis: Back pain[ICD9: 724.5] Tessie Motta MD, [facility] CPT-4: 74740 05/07/2013 ([id number]) 53337 EST. PATIENT, LEVEL IV Diagnosis: EDEMA[ICD9: 782.3] Diagnosis: COPD (chronic obstructive pulmonary disease) with acute bronchitis[ ICD9: 491.22] Tessie Motta MD, [facility] CPT-4: 12347 04/16/2013 ([id number]) 03039 EST. PATIENT, LEVEL IV Diagnosis: Lumbago[ICD9: 724.2] Diagnosis: DM W/O COMPLICATION TYPE II, UNCONTROLLED[SNOMED: 87430375] Diagnosis: EDEMA[ICD9: 782.3] Rika Motta MD, [facility] CPT-4: 59677 03/21/2013 ([id number]) 66597 EST. PATIENT, LEVEL IV Diagnosis: Abdominal pain[ICD9: 789.00] Diagnosis: EDEMA[ICD9: 782.3] Diagnosis: DIABETES TYPE II[SNOMED: 429628329] Tessie Motta MD [facility] CPT-4: 23901 02/12/2013 ([id number]) 77495 EST. PATIENT, LEVEL III Diagnosis: EDEMA[ICD9: 782.3] Diagnosis: RESPIRATORY ABNORM NEC[ICD9: 786.09] Tessie Motta MD [facility] CPT-4: 38498 02/04/2013 ([id number]) 13231 EST. PATIENT, LEVEL IV Diagnosis: Edema[ICD9: 782.3] Diagnosis: ESSENTIAL HYPERTENSION[SNOMED: 60111751] Tessie Motta MD, [facility] CPT-4: 88220 01/17/2013 ([id number]) 18417 EST. PATIENT, LEVEL IV Diagnosis: ESSENTIAL HYPERTENSION[SNOMED: 73265751] Diagnosis: Diabetic leg ulcer[ICD9: 250.80] Diagnosis: Callus[ICD9: 700] Diagnosis: Urinary urgency[ICD9: 788.63] Diagnosis: HYPOTHYROIDISM[ICD9: 244.9] Rika Motta MD [facility] CPT-4: 19358 12/31/2012 ([id number]) 27591 EST. PATIENT, LEVEL IV Diagnosis: Cellulitis of left leg[ICD9: 682.6] Diagnosis: DIABETES TYPE II[SNOMED: 082996935] Diagnosis: ESSENTIAL HYPERTENSION[SNOMED: 10628448] Diagnosis: EDEMA[ICD9: 782.3] Rika Motta MD, [facility] CPT-4: 09242 12/20/2012 ([id number]) 30399 EST. PATIENT, LEVEL III Diagnosis: Acute bronchitis[ICD9: 466.0] Diagnosis: COUGH[ICD9: 786.2] Tessie Motta MD, [facility] CPT-4: 40966 10/29/2012 ([id number]) 12302 EST. PATIENT, LEVEL IV Diagnosis: ESSENTIAL HYPERTENSION[SNOMED: 11837996] Diagnosis: DIABETES TYPE II[SNOMED: 598482575] Diagnosis: HYPOTHYROIDISM[ICD9: 244.9] Tessie Motta MD [facility] CPT- 4: 57407 09/06/2012 ([id number]) 97866 EST. PATIENT, LEVEL IV Diagnosis: DIABETES TYPE II[SNOMED: 176751110] Diagnosis: ESSENTIAL HYPERTENSION[SNOMED: 21169217] Diagnosis: Diarrhea[ICD9: 787.91] Tessie Motta MD, [facility] CPT-4: 26758 08/23/2012 ([id number]) 26379 EST. PATIENT, LEVEL III Diagnosis: ESSENTIAL HYPERTENSION[SNOMED: 38721249] Diagnosis: Gastroenteritis[ICD9: 558.9] Rika Motta MD, [facility] CPT-4: 82654 08/13/2012 ([id number]) 42549 EST. PATIENT, LEVEL IV Diagnosis: Diarrhea[ICD9: 787.91] Diagnosis: ESSENTIAL HYPERTENSION[SNOMED: 14060922] Diagnosis: DM W/O COMPLICATION TYPE II, UNCONTROLLED[SNOMED: 42322340] Rika Motta MD, [facility] CPT-4: 35350 08/07/2012 ([id number]) 60589 EST. PATIENT, LEVEL III Diagnosis: Acute sinusitis[ICD9: 461.9] Diagnosis: Thrush[ICD9: 112.0] Rika Motta MD [facility] CPT-4: 94326 07/06/2012 ([id number]) 93274 EST. PATIENT, LEVEL IV Diagnosis: ESSENTIAL HYPERTENSION[SNOMED: 61690054] Diagnosis: DIABETES TYPE II[SNOMED: 841480911] Tessie Motta MD, [facility] CPT-4: 48015 06/07/2012 ([id number]) 69577 EST. PATIENT, LEVEL IV Diagnosis: ESSENTIAL HYPERTENSION[SNOMED: 21006439] Diagnosis: ACUTE SINUSITIS[ICD9: 461.9] Diagnosis: Labial cyst[ICD9: 624.8] Tessie Motta MD, [facility] CPT-4: 78012 05/28/2012 ([id number]) 40475 EST. PATIENT, LEVEL IV Diagnosis: ESSENTIAL HYPERTENSION[SNOMED: 62366751] Diagnosis: EDEMA[ICD9: 782.3] Tessie Motta MD [facility] CPT-4: 27196 05/17/2012 ([id number]) 87979 EST. PATIENT, LEVEL IV Diagnosis: EDEMA[ICD9: 782.3] Diagnosis: ESSENTIAL HYPERTENSION[SNOMED: 78094442] Diagnosis: Diarrhea[ICD9: 787.91] Diagnosis: ALLERGIC RHINITIS[ICD9: 477.9] Tessie Motta MD [facility] CPT- 4: 96535 05/02/2012 ([id number]) 58528 EST. PATIENT, LEVEL IV Diagnosis: ACUTE SINUSITIS[ICD9: 461.9] Diagnosis: ESSENTIAL HYPERTENSION[SNOMED: 09396747] Diagnosis: ALLERGIC RHINITIS[ICD9: 477.9] Tessie Motta MD [facility] CPT- 4: 24376 04/10/2012 ([id number]) 36574 EST. PATIENT, LEVEL IV Diagnosis: ESSENTIAL HYPERTENSION[SNOMED: 99813938] Diagnosis: Foreign body in foot or toe[ICD9: 917.6] Diagnosis: EDEMA[ICD9: 782.3] Tessie Motta MD [facility] CPT-4: 22657 02/27/2012 ([id number]) 03914 EST. PATIENT, LEVEL IV Diagnosis: CELLULITIS OF FOOT[ICD9: 682.7] Diagnosis: DIABETES TYPE II[SNOMED: 685128693] Diagnosis: EDEMA[ICD9: 782.3] Tessie Motta MD [facility] CPT-4: 84903 02/15/2012 ([id number]) 61602 EST. PATIENT, LEVEL IV Diagnosis: EDEMA[ICD9: 782.3] Diagnosis: ESSENTIAL HYPERTENSION[SNOMED: 06112409] Diagnosis: ACUTE SINUSITIS[ICD9: 461.9] Diagnosis: Dysuria[ICD9: 788.1] Tessie Motta MD [facility] CPT-4: 15138 02/01/2012 ([id number]) 97623 EST. PATIENT, LEVEL IV Diagnosis: DIABETES TYPE II[SNOMED: 403004768] Diagnosis: Diverticulitis[ICD9: 562.11] Tessie Motta MD [facility] CPT- 4: 45944 12/14/2011 ([id number]) 78212 EST. PATIENT, LEVEL IV Diagnosis: Nausea vomiting and diarrhea[ICD9: 787.01] Diagnosis: ESSENTIAL HYPERTENSION[SNOMED: 04872483] Diagnosis: DM W/O COMPLICATION TYPE II, UNCONTROLLED[SNOMED: 76436617] Tessie Motta MD , [facility] CPT-4: 08888 11/30/2011 ([id number]) 82752 EST. PATIENT, LEVEL IV Diagnosis: ESSENTIAL HYPERTENSION[SNOMED: 85086400] Diagnosis: DIABETES TYPE II[SNOMED: 409713431] Diagnosis: COUGH[ICD9: 786.2] Tessie Motta MD, [facility] CPT-4: 61558 11/17/2011 ([id number]) Patient admitted to the hospital from clinic (NO CHARGE) Diagnosis: Tachycardia[ICD9: 785.0] Diagnosis: Dyspnea[ICD9: 786.09] Diagnosis: Wheezing[ICD9: 786.07] Diagnosis: FALL AGAINST OBJECT[ICD9: E888.1] Diagnosis: ANXIETY STATE[ICD9: 300.00] Diagnosis: ESSENTIAL HYPERTENSION[SNOMED: 37946463] Diagnosis: Chronic depression[ICD9: 311] Diagnosis: Diabetes mellitus type 2, uncontrolled[SNOMED: 02906144] Tessie Motta MD, [facility] CPT-4: 53882I 11/03/2011 ([id number]) 52700 EST. PATIENT, LEVEL IV Diagnosis: DIABETES TYPE II[SNOMED: 604403300] Diagnosis: ANXIETY STATE[ICD9: 300.00] Diagnosis: DEPRESSIVE DISORDER NEC[ICD9: 311] Diagnosis: Ulcer of toe[ICD9: 707.15] Tessie Motta MD, [facility] CPT- 4: 03577 10/24/2011 ([id number]) 86761 EST. PATIENT, LEVEL IV Diagnosis: EDEMA[ICD9: 782.3] Diagnosis: ESSENTIAL HYPERTENSION[SNOMED: 44963310] Diagnosis: ANXIETY STATE[ICD9: 300.00] Tessie Motta MD, [facility] CPT- 4: 06963 09/26/2011 06418 EST. PATIENT, LEVEL IV Diagnosis: EDEMA[ICD9: 782.3] Diagnosis: ESSENTIAL HYPERTENSION[SNOMED: 28029654] Rika Motta MD, [facility] CPT-4: 36996 09/20/2011 ([id number]) 89495 EST. PATIENT, LEVEL IV Diagnosis: ACUTE SINUSITIS[ICD9: 461.9] Diagnosis: Allergic rhinitis[ICD9: 477.9] Diagnosis: Cough[ICD9: 786.2] Tessie Motta MD, [facility] CPT-4: 22866 09/01/2011 ([id number]) 56900 EST. PATIENT, LEVEL IV Diagnosis: Chronic sinusitis[ICD9: 473.9] Diagnosis: Anxiety, generalized[ICD9: 300.02] Tessie Motta MD, [facility] CPT-4: 09110 08/15/2011 33030 EST. PATIENT, LEVEL IV Diagnosis: ACUTE SINUSITIS[ICD9: 461.9] Diagnosis: Tachycardia[ICD9: 785.0] Diagnosis: Anxiety[ICD9: 300.00] Diagnosis: Dehydration[ICD9: 276.51] Diagnosis: Sciatica[ICD9: 724.3] Tessie Motta MD, [facility] CPT-4: 90534 08/09/2011 81783 EST. PATIENT, LEVEL IV Diagnosis: DIABETES TYPE II[SNOMED: 193871492] Diagnosis: Sciatica[ICD9: 724.3] Diagnosis: Yeast infection[ICD9: 112.9] Tessie Motta MD, [facility] CPT- 4: 41330 08/01/2011 ([id number]) 94247 EST. PATIENT, LEVEL IV Diagnosis: DIABETES TYPE II[SNOMED: 587643981] Diagnosis: ACUTE MAXILLARY SINUSITIS[ICD9: 461.0] Diagnosis: Fibromyalgia[ICD9: 729.1] Tessie Motta MD, [facility] CPT-4: 52262 06/20/2011 99412 EST. PATIENT, LEVEL IV Diagnosis: ESSENTIAL HYPERTENSION[SNOMED: 93492719] Diagnosis: DIABETES TYPE II[SNOMED: 315690652] Diagnosis: ACUTE MAXILLARY SINUSITIS[ICD9: 461.0] Tessie Motta MD, [facility] CPT-4: 18864 04/18/2011 Plan of Care Planned Activity Notes [...] assisted living -Ellis is in contact with [place] -recommend she stay at Ellis's house until she can move into [place]. 05/21/2018 Patient Education: Patient Medication Summary Completed [...] assisted living. 05/16/2018 Appointment: Tessie Motta WPtel: [facility] [place] (15 min) Moderate 05/16/2018 Patient Education: [...] verbalized understanding. 04/27/2018 Appointment: Rika Bello WPtel: [phone] [place] (30 min) Complex 04/27/2018 Patient Education: Patient Medication Summary Completed 04/27/2018 Appointment: Rika Bello WPtel: [address] [place], [place] [phone] (15 min) Moderate 04/24/2018 Appointment: Nurse Visit [...] and return Monday for removal of IPRO Naprrhl-gjnbyizzrw-kk changes in medications-recommend counseling-patient refuses Weakness-patient is deconditioned-refuses PT -recommend patient start walking more 04/10/2018 Appointment: Rika Bello WPtel: [phone] (15 min) Moderate 04/10/2018 Patient Education: Patient Medication Summary Completed 04/10/2018 Appointment: Arlette Skelton WPtel: [address] [place] [address] (15 min) Moderate 03/21/2018 Appointment: Rika Bello WPtel: [address] [place], [place] [phone] (30 min) Complex 03/20/2018 Visit Plan: Hypertension [...] discussed Dr Raines' s treatment plan with Monae and Jose again today in the office. Low back pain- again recommend PT -patient continues to refuse -discussed the importance of physical activity and that using a wheelchair will not help her maintain mobility and strength Anxiety-chronic -plan to decrease xanax to twice daily and taper off as directed 03/12/2018 Appointment: Rika Bello WPtel: [facility]5 [phone] (15 min) Moderate 03/12/2018 Patient Education: Patient Medication Summary Completed 03/12/2018 Patient Education: Back Pain Completed 03/12/2018 Appointment: Rika Bello WPtel: [phone] (30 min) Complex 03/08/2018 Appointment: Lab Draw [...] next refill 02/20/2018 Appointment: Rika Bello WPtel: [phone] (15 min) Moderate 02/20/2018 Patient Education: Patient Medication Summary Completed 02/20/2018 Patient Education: Back Pain Completed 02/20/2018 Patient Education: Patient Medication Summary Completed 02/20/2018 Care Plan: Iron Pending 02/20/2018 Appointment: Rika Bello WPtel: [phone] (30 min) Complex 02/19/2018 Appointment: Rika Bello WPtel: [address] [place] [phone] (15 min) Moderate 02/01/2018 Visit Plan: UA negative -no culture indicated 12/14/2017 Appointment: Lab Draw 12/14/2017 Patient Education: Patient Medication Summary Completed 12/14/2017 Visit Plan: Dysuria-urinary incontinence-culture urine HTN- elevated today-monitor at home -follow up with hand drawer in 11/27/2017 Appointment: [facility]el[phone] [phone] (15 min) Moderate 11/27/2017 Patient Education: Patient [...] Completed 10/27/2017 Care Plan: SCREENINGMAMMOGRAPHYDIGITAL LOINC : 87481-1 Pending 10/27/2017 Appointment: Arlette Skelton WPtel: [phone] [facility] [place] (15 min) Moderate 10/03/2017 Appointment: Arlette Skelton WPtel: [phone] [facility] [place] (15 min) Moderate 10/02/2017 Appointment: Rika Bello WPtel: [phone] [phone] [place] (30 min) Complex 09/29/2017 [...] acutely worsened. 09/27/2017 Appointment: [facility]elton [facility]el[facility] [phone] [facility] [place] (30 min) Complex 09/27/2017 Patient Education: Patient Medication Summary Completed 09/27/2017 Care Plan: CT HEAD/BRAIN W/O DYE LOINC : 55527-6 Pending 09/27/2017 Visit Plan: DM-patient noncompliant with [...] over- medication. 09/15/2017 Appointment: Rika Bello WPtel: [phone] [phone] (30 min) Complex 09/15/2017 Patient Education: Patient Medication Summary Completed 09/15/2017 Appointment: Rika Bello WPtel: [phone] (30 min) Complex 09/12/2017 Appointment: Rika Bello WPtel: [facility]6 [phone] (30 min) Complex 09/07/2017 Visit Plan: Rxl-smpjxswmgz-yc changes Anemia-check cbc today Dental infection-on clindamycin per Dr Bryant-start probiotics Also needs to monitor blood sugars closely 08/18/2017 Appointment: Rika Bello WPtel: [phone] (30 min) Complex 08/18/2017 Patient [...] not resolve 08/03/2017 Appointment: Rika Bello WPtel: [phone] (30 min) Complex 08/03/2017 Patient [...] worsen 07/27/2017 Appointment: [facility] [phone] [phone] (30 min) [facility] 07/27/2017 Patient Education: Patient Medication Summary Completed [...] Tessie Motta WPtel: [phone] [facility] (15 min) Moderate 06/13/2017 Patient Education: Patient Medication Summary Completed 06/13/2017 Visit Plan: Dental abscess - will send RX - pt is to keep her appointment with her dentist - pt is to notify clinic if symptoms do not improve, if they worsen, or with any other acute changes, questions, or concerns. 04/21/2017 Appointment: Arlette Skelton WPtel: [phone] [facility] (30 min) Complex 04/21/2017 Patient [...] Q HS RESCHEDULE APPT WITH DR YANNA HoPgmdqlicr-vskldxyil-fz for bactroban ointment provided and instructed on use PPT-tocigeqmli-gy change in medications Mildly elevated liver enzymes-discussed with Dr motta-suspect due to gabapentin-will monitor levels Gait instability-again recommend patient use walker as well as PT 04/18/2017 Appointment: Rika Bello WPtel: [phone] [phone] [place] (30 min) Complex 04/18/2017 Patient Education: Patient [...] become less controlled. Low potassium- check labs KNT-onezktawbj-nu changes Afib-check digoxin level with labs Abdominal [...] become less controlled. Low potassium- check labs JHA-yybrfmnqwi-sw changes Afib-check digoxin level with labs Abdominal pain-refill levsin for prn use -call if pain uncontrolled 03/27/2017 Appointment: Rika Bello WPtel: [address] [place], [place] [phone] (30 min) Complex 03/27/2017 Patient Education: Patient Medication Summary Completed 03/27/2017 Appointment: Rika Bello WPtel: [address] [place] [phone] (30 min) Complex 03/24/2017 Visit Plan: Hypertension - well controlled - continue with current medications, continue with no added salt diet. Pt has been encouraged to exercise daily. The pt has been advised to call the office if there are any acute concerns about change in blood pressure readings at home. DM-uncontrolled- discussed strict diet and exercise with patient Low gqdwvaalj-jsbooiqn-sufvoqso to monitor Abd qjnq-txuqrjrk-bq changes 02/27/2017 Appointment: Rika Bello [facility]Ptel[facility] [phone] [phone] (30 min) Complex 02/27/2017 Patient Education: Patient [...] this regimen. 02/21/2017 Appointment: Rika Bello WPtel: [address] [phone] [place] (30 min) Complex 02/21/2017 Patient Education: Patient Medication Summary Completed 02/21/2017 Appointment: Rika Bello WPtel: [phone] [phone] (30 min) Complex 02/20/2017 Visit Plan: Generalized [...] patient 's pharmacy-repeat labs on Monday02/17/2017 Appointment: iRka Bello WPtel: [phone] [phone] (30 min) Complex 02/17/2017 Patient Education: Patient Medication Summary Completed 02/17/2017 Visit Plan: COPD-recent hospitalization with pneumonia- symptoms improved-discussed continuous oxygen use at home-appt with Dr Odonnell tomorrow Afib-check digoxin level-patient just finished zpack Diarrhea-continue probiotics-check stool if diarrhea persists DM-bring log to next appt 02/13/2017 Appointment: Rika Bello WPtel: [phone] [phone] (30 min) Complex 02/13/2017 Patient Education: Patient Medication Summary Completed 02/13/2017 Patient Education: Hypertension Completed 02/13/2017 Visit Plan: DM-very uncontrolled-refer to Dr Raines for management RIght shoulder and arm pain-fell 5 days ago-xray shoulder and arm Chronic sinusitis-RX for Dr Cervantes's compound gentamicin nasal spray 01/30/2017 Appointment: Rika Bello WPtel: [facility]3 [phone] (30 min) Complex 01/30/2017 Patient Education: Patient Medication Summary Completed 01/30/2017 Care Plan: Referral Order SNOMED-CT : 852557344 Pending 01/30/2017 Visit Plan: Hypertension - well [...] every night DM-check Hgb A1C Hypothyroidism-check level Ldzdlyq-fypwoqzjiu-rbp well controlled- increase cymbalta-recommend counseling 01/16/2017 Appointment: Rika Bello WPtel: [phone] [phone] (30 min) Complex 01/16/2017 Patient Education: Patient Medication Summary Completed 01/16/2017 Appointment: Rika Bello WPtel: [phone] [phone] (30 min) Complex 01/10/2017 Visit [...] concerns. 12/13/2016 Appointment: [facility]el[facility]Ptel[phone] [facility] (30 min) Complex 12/13/2016 Patient Education: [...] completely heal. 11/11/2016 Appointment: Rika Bello WPtel: [address] [place] [phone] (30 min) [facility] 11/11/2016 Patient Education: Patient Medication Summary Completed 11/11/2016 Care Plan: BMI Above normal followup SELF-MGMT EDUC & TRAIN 1 PT Pending 2016 Appointment: Rika Bello WPtel: [address] [place], [place] [phone] (30 min) Complex 11/08/2016 Visit Plan: Shingles-rash scabbed-no further treatment indicated-patient to call if pain uncontrolled N/V-check labs including UA DM- check labs today Thrush-RX for nystatin 10/28/2016 Appointment: Rika Bello WPtel: [address] [place], [place] [phone] (30 min) Complex 10/28/2016 Patient Education: Patient Medication Summary Completed 10/28/2016 Patient Education: Obesity Completed 10/28/2016 Appointment: Rika Bello WPtel: [address] [place], [place] [phone] (30 min) Complex 10/25/2016 Appointment: Lab Draw 10/21/2016 Patient Education: Patient Medication Summary Completed 10/21/2016 Visit Plan: Right knee pain-patient to schedule appt with Dr Allison Garcia-right arm-concerned for shingles-RX for acyclovir provided and instructed on use-call if symptoms do not resolve or if any worse. 10/13/2016 Appointment: Rika Bello WPtel: [address] [place], [place] [phone] (30 min) Complex 10/13/2016 Patient Education: Patient Medication Summary Completed 10/13/2016 Appointment: Rika Bello WPtel: [address] [place], [place] [phone] (30 min) Complex 10/11/2016 Appointment: Rika Bello WPtel: [address] [place], [place] [phone] [facility] - Annual Wellness Visit 10/04/2016 Visit Plan: [...] as directed. 09/23/2016 Appointment: Rika Bello WPtel: [address] [place], [place] [phone] (15 min) Moderate 09/23/2016 Patient Education: Patient [...] 09/13/2016 Care Plan: Referral Order SNOMED-CT : 581239048 Pending 09/13/2016 Appointment: Rika Bello WPtel: [address] [place], [place] [phone] (30 min) Complex 09/09/2016 Appointment: Rika Bello WPtel: [address] [place], [place] [phone] (30 min) Complex 09/08/2016 Visit Plan: Hypertension [...] Anemia-check CBC 08/09/2016 Appointment: [facility]Ptel: [phone] [phone] (30 min) Complex 08/09/2016 Patient Education: [...] control. Yeast infection -rx for nystatin powder KVLE-isttwmpbt-sdzcwo pneumonia -afib-patient is oxygen dependent due to severely compromised pulmonary and cardiac systems-will send orders to [facility] to continue oxygen 07/26/2016 Visit Plan: Diabetes [...] control. Yeast infection -rx for nystatin powder PKNQ-eaogwzjak-mrfnek pneumonia -afib-patient is oxygen dependent due to severely compromised pulmonary and cardiac systems-will send orders to [facility] to continue oxygen 07/26/2016 Visit Plan: Diabetes [...] control. Yeast infection -rx for nystatin powder NYKW-nfdabpmqm-iofdrz pneumonia -afib-patient is oxygen dependent due to severely compromised pulmonary and cardiac systems-will send orders to [facility] to continue oxygen 07/26/2016 Appointment: Rika Bello WPtel: [phone] [phone] [place] (30 min) Complex 07/26/2016 Patient Education: Patient Medication Summary Completed 07/26/2016 Appointment: Rika Bello WPtel: [phone] [phone] [place] (30 min) Complex 07/22/2016 Appointment: Rika Bello WPtel: [phone] [phone] [place] (30 min) Complex 07/18/2016 Appointment: Rika Bello WPtel: [phone] [phone] [place] (30 min) Complex 07/01/2016 Appointment: Lab Draw 06/24/2016 Patient Education: Patient Medication Summary Completed 06/24/2016 Appointment: Rika Bello WPtel: [phone] [phone] (30 min) Complex 2016 Visit Plan: Diabetes [...] Completed 05/24/2016 Appointment: Rika Bello WPtel: [phone] [phone] (30 min) Complex 05/17/2016 Visit Plan: Vaginal [...] glucose control. 04/19/2016 Appointment: Rika Bello WPtel: [phone] (30 min) Complex 04/19/2016 Patient Education: Patient Medication Summary Completed 04/19/2016 Patient Education: Obesity Completed 04/19/2016 Appointment: Rika Bello WPtel: [phone] [place] (30 min) Complex 04/18/2016 Visit Plan: Diabetes [...] to allow for greater blood glucose control. UAH-dknhnjxkzr-wv changes in medications at this time. Dysuria-UA negative-needs pelvic exam due to pt c/o vaginal discharge 04/11/2016 Appointment: Rika Bello WPtel: [phone] [phone] [place] (30 min) Complex 04/11/2016 Patient Education: Patient Medication Summary Completed 04/11/2016 Patient Education: Obesity Completed 04/11/2016 Appointment: Rika Bello WPtel: [address] [phone] [place] (30 min) Complex 04/08/2016 Visit Plan: Chronic [...] peripheral edema. 03/11/2016 Appointment: Rika Bello WPtel: [phone] (30 min) [facility] 03/11/2016 Patient Education: Patient Medication Summary Completed [...] use 02/26/2016 Appointment: Rika Bello WPtel: [phone] [phone] [place] (30 min) Complex 02/26/2016 Patient Education: Patient Medication Summary Completed 02/26/2016 Appointment: Rika Bello [facility]Ptel: [phone] [phone] [place] (30 min) Complex 02/25/2016 Appointment: Rika Bello WPtel: [phone] [phone] (30 min) Complex 02/23/2016 Appointment: Lab Draw [...] to mold 02/02/2016 Appointment: Rika Bello WPtel: [address] [place], [place] [phone] (30 min) Complex 02/02/2016 Patient Education: Patient Medication Summary Completed 02/02/2016 Appointment: Tessie Motta WPtel: [facility] (15 min) Moderate 01/21/2016 Appointment: Rika Bello WPtel: [address] [place], [place] [phone] (30 min) Complex 01/14/2016 Visit Plan: Hypertension [...] Patient Medication Summary Completed 12/17/2015 Visit Plan: Ikgwdgw-yqrualssm-tjzg head injury on 12/05-did not go to ER-patient sent for STAT CT scan of head-schedule appt with Dr Dyer Adrenal insufficiency-patient suddenly stopped prednisone-instructed patient to restart and taper prednisone as directed Rib lifq-ioytc-coxgdr fall-xray ribs 12/08/2015 Appointment: Rika Bello [facility]Ptel[phone] [phone] (15 min) Moderate 12/08/2015 Appointment: Rika Bello [facility]Ptel: [phone] [phone] (30 min) Complex 12/08/2015 Patient Education: Patient Medication Summary Completed 12/08/2015 Care Plan: COMPLETE CBC AUTOMATED LOINC : 74247-3 Pending 12/08/2015 Visit Plan: Hypertension - well [...] pt was given a script for a retirement prednisone taper - pt has not started [...] Education: Patient Medication Summary Completed 11/10/2015 Appointment: Clark Oliva 11/02/2015 Patient Education: Patient Medication Summary Completed [...] Dr. Mejia 10/27/2015 Appointment: Rika Bello WPtel: [address] [place] [phone] (30 min) Complex 10/27/2015 Patient Education: Patient Medication Summary Completed 10/27/2015 Patient Education: Obesity Completed 10/27/2015 Care Plan: Referral Order SNOMED-CT : 285035515 Pending 10/27/2015 Referral: [facility]:[phone] [facility] Ref[facility] Initiated 10/21/2015 Visit Plan: Medicare [...] stomach pain. 09/29/2015 Appointment: Rika Bello WPtel: [phone] [facility] - Welcome to Medicare visit 09/29/2015 Patient Education: Patient Medication Summary Completed 09/29/2015 Patient Education: Obesity Completed 09/29/2015 Care Plan: Referral Order SNOMED-CT : 619013724 Pending 09/29/2015 Care Plan: BMI Above normal [...] min) Complex 05/05/2015 Appointment: Rika Bello WPtel: [phone] (30 min) Complex 04/27/2015 Visit Plan: Cellulitis [...] Hypertension Completed 03/03/2015 Appointment: Rika Bello WPtel: [phone] [phone] [place] (30 min) Complex 02/24/2015 Appointment: (30 min) Complex 01/29/2015 Appointment: Tessie Motta WPtel: [phone] [place] (15 min) Moderate 01/22/2015 Visit Plan: Blister of right lower leg-fluids removed with #27 gauze needle and compression dressing applied-refer to wound care for evaluation and management-patient is at high risk of developing large ulcer due to diabetes, noncompliance and poor hygiene. Rash right leg-start oral abx and bactroban as directed Mfaab-xgovcrkbbatk-vfr markie wraps, elevate leg, and again instructed [...] eating out. 01/01/2015 Appointment: Tessie Motta WPtel: [phone] [facility] (15 min) Moderate 01/01/2015 Patient Education: Patient [...] Care Plan: COMPLETE CBC AUTOMATED LOINC : 63470-9 Ordered 11/04/2014 Care Plan: URINALYSIS NONAUTO W/O SCOPE LOINC : 58198-7 Ordered 11/04/2014 Appointment: Follow up 10/07/2014 Visit Plan: Edema - pt has been advised to elevate legs to prevent dependent edema, compression has been recommended to help to naturally decrease peripheral edema. Diuretic use has been discussed and pt has been instructed in appropriate use of such medication as necessary to further attempt to reduce peripheral edema. Mznsyuyxvo-yzhsphaz-rm change in treatment- continue compression hose-decrease salt/sodium in diet-call if symptoms worsen or do not resolve Dhsuyylgv-vttuynn-syirbqcq nasonex to twice daily as directed 09/08/2014 [...] they worsen. 06/12/2014 Appointment: Rika Bello [facility]Ptel[phone] [phone] Follow up 06/12/2014 Patient Education: Patient Medication Summary Completed 06/12/2014 Patient Education: .Amazing charts Exercise for Sciatica Completed 06/12/2014 Care Plan: COMPLETE CBC AUTOMATED LOINC : 40727-8 Ordered 06/12/2014 Visit Plan: Cellulitis - continue [...] Summary Completed 05/26/2014 Appointment: Tessie Motta WPtel: [phone] [facility] Lab Draw 04/21/2014 Patient Education: Patient Medication [...] further attempt to reduce peripheral edema. RECOMMEND MIREILLENET TO HAVE LABS TODAY Right knee pain-recent [...] Tessie Motta WPtel: [address] [facility] Follow up 02/13/2014 Patient Education: Patient Medication [...] daily. 01/27/2014 Appointment: Tessie Motta WPtel: [phone] Follow up 01/27/2014 Patient Education: Patient Medication Summary Completed 01/27/2014 Appointment: Rika [facility]ello [facility]Ptel[phone] [phone] Follow up 01/02/2014 Visit Plan: Open wound of eht-lvpzuvdf-oonctxve with dressing changes as directed-call for increase [...] Summary Completed 12/26/2013 Appointment: Tessie Motta WPtel: [phone] [facility] Follow up 12/24/2013 Visit Plan: Open wound of right leg-debrided today in the office-instructed on wound care-follow up as directed. Call with any questions, concerns, or worsening symptoms. Culture of wound today in the office-RX for abx sent to patient's pharmacy and instructed on use. Patient verbalized understanding of plan. 12/12/2013 Appointment: Rika Bello WPtel: [phone] Other 12/12/2013 Patient Education: Patient Medication Summary Completed 12/12/2013 Appointment: Tessie Motta WPtel: [facility] Follow up 11/20/2013 Visit Plan: negative ua 11/18/2013 Appointment: Tessie Motta W[facility]el: [facility] [facility] Lab Draw 11/18/2013 Patient Education: Patient Medication [...] Completed 11/14/2013 Visit Plan: Open wound right tnj-bqlwdj-bhcm if opens up Edema - pt has been advised to elevate legs to prevent dependent edema, compression has been recommended to help to naturally decrease peripheral edema. Diuretic use has been discussed and pt has been instructed in appropriate use of such medication as necessary to further attempt to reduce peripheral edema. 10/21/2013 Appointment: Rika Bello WPtel: [facility] Follow up 10/21/2013 Patient Education: Patient Medication Summary Completed 10/21/2013 Appointment: Rika Bello WPtel: [address] [place] [address] Follow up 10/17/2013 Appointment: Tessie Motta WPtel: [address] [place] [address] Follow up 10/10/2013 Visit Plan: Hypertension - [...] for pain. 10/03/2013 Appointment: Rika Bello WPtel: [address] [place] [address] Follow up 10/03/2013 Patient Education: Patient Medication [...] of plan. 09/23/2013 Appointment: Tessie Motta WPtel: [facility] [place] Nurse Visit 09/23/2013 Patient Education: Patient [...] 2 WEEKS. 09/20/2013 Appointment: Rika Bello WPtel: [facility] Follow up 09/20/2013 Patient Education: Patient Medication Summary Completed 09/20/2013 Patient Education: Hypertension Completed 09/20/2013 Appointment: Tessie Motta WPtel: [facility] [place] Follow up 09/16/2013 Visit Plan: Edema [...] verbalized understanding. 09/10/2013 Appointment: Rika Bello WPtel: [address] [place], [place] [id number] [place] [address] Other 09/10/2013 Patient Education: Patient Medication Summary Completed 09/10/2013 Appointment: Rika Bello WPtel: [address] [place], [place] [phone] [place] Follow up 09/02/2013 Visit Plan: Diabetes Mellitus [...] peripheral edema. 08/19/2013 Appointment: Rika Bello WPtel: [facility]5 [facility] [place] [address] Other 08/19/2013 Patient Education: Patient Medication Summary [...] as scheduled 08/01/2013 Appointment: Rika Bello WPtel: [address] [place], [place] [phone] Follow up 08/01/2013 Patient Education: Patient Medication Summary Completed 08/01/2013 Appointment: Rika Bello WPtel: [address] [place], [place] [phone] [place] Follow up 07/25/2013 Appointment: Tessie Motta WPtel: [address] [place], [place] [phone] [place] Follow up 07/25/2013 Visit Plan: Bister of foot-dressing changes discussed with patient and instructed her to keep her foot clean and dry-STOP WEARING FLIP FLOPS as they are causing friction over blistered area. Keep follow up appointment as scheduled. Call for redness, drainage or other s/s of infection. 07/19/2013 Appointment: Rika Bello WPtel: [facility]4 [place] Other 07/19/2013 Patient Education: Patient Medication Summary [...] peripheral edema. 07/15/2013 Appointment: Rika Bello WPtel: [address] [place] [address] Other 07/15/2013 Patient Education: Patient Medication Summary Completed 07/15/2013 Patient Education: Hypertension Completed 07/15/2013 Appointment: Rika Bello WPtel: [address] [place] [address] Follow up 07/01/2013 Appointment: Rika Bello WPtel: [address] [place] [address] Lab Draw 06/28/2013 Patient Education: Patient Medication [...] 900mg tid. 06/27/2013 Appointment: Tessie Motta WPtel: [facility] Other 06/27/2013 Patient Education: Patient Medication Summary Completed 06/27/2013 Appointment: Tessie Motta WPtel: [phone] [place] Other 06/24/2013 Visit Plan: Diabetes Mellitus - [...] AND 20MG IN THE AFTERNOON. 06/10/2013 Appointment: Bing Mottay WPtel: [phone] [facility] Follow up 06/10/2013 Patient Education: Patient Medication Summary Completed 06/10/2013 Appointment: Tessie Motta WPtel: [phone] [facility] [place] Follow up 06/06/2013 Visit Plan: Sinusitis - [...] acutely worsen. 05/07/2013 Appointment: Tessie Motta WPtel: [address] [place], [place] [phone] Follow up 05/07/2013 Patient Education: Patient Medication Summary Completed 05/07/2013 Appointment: Tessie Motta WPtel: [address] [place], [place] [phone] Follow up 04/30/2013 Visit Plan: Edema - [...] acute changes. 04/16/2013 Appointment: Tessie Motta WPtel: [facility]6 [facility] Follow up 04/16/2013 Patient Education: Patient Medication Summary Completed 04/16/2013 Appointment: Tessie Motta WPtel: [address] [place], [place] [phone] Follow up 04/04/2013 Visit Plan: Lumbago-continue physical [...] peripheral edema. 03/21/2013 Appointment: Rika Bello WPtel: [facility]5 [facility] Follow up 03/21/2013 Patient Education: Patient Medication Summary Completed 03/21/2013 Appointment: Tessie Motta WPtel: [facility] [facility] Follow up 03/20/2013 Appointment: Tessie Motta WPtel: [address] [place], [place] [phone] Follow up 03/05/2013 Visit Plan: Edema-significantly improved- [...] less controlled. 02/12/2013 Appointment: Rika Bello [facility]Ptel: [phone] [facility] follow up 02/12/2013 Patient Education: Patient Medication [...] Dyspnea - recommended pt to see new physical sciences professor when he gets to [facility] for further evaluation and work-up. 02/04/2013 Appointment: Tessie Motat WPtel: [facility]5 [facility] Follow up 02/04/2013 Patient Education: Patient Medication [...] not improve. 01/17/2013 Appointment: Rika Bello WPtel: [facility] Follow up 01/17/2013 Patient Education: Patient Medication Summary Completed 01/17/2013 Patient Education: Hypertension Completed 01/17/2013 Appointment: Tessie Motta WPtel: [facility]5 [facility] Follow up 01/16/2013 Appointment: Tessie Motta WPtel: [facility]5 [facility] [place] Follow up 01/10/2013 Appointment: Rika Bello WPtel: [facility] [place] Lab Draw 01/01/2013 Patient Education: Patient Medication [...] Hypothyroidism-check labs 12/31/2012 Appointment: Rika Bello WPtel: [facility]4 [facility] [place] [address] Follow up 12/31/2012 Appointment: Rika Bello WPtel: [phone] [facility] Sick 12/31/2012 Patient Education: Patient Medication Summary [...] Check labs. 12/20/2012 Appointment: Rika Bello WPtel: [phone] [phone] Sick 12/20/2012 Patient Education: Patient Medication Summary Completed 12/20/2012 Patient Education: Hypertension Completed 12/20/2012 Appointment: Tessie Motta WPtel: [facility] [facility] Lab Draw 11/05/2012 Patient Education: Patient Medication Summary Completed 11/05/2012 Visit Plan: Bronchitis - acute case of bronchitis identified. Pt has been given antibiotics, breathing treatments as appropriate, and pt has been instructed to call if symptoms are not improved, or if symptoms acutely worsen. 10/29/2012 Appointment: Tessie Motta WPtel: [address] [place], [place] [phone] Sick 10/29/2012 Patient Education: Patient Medication Summary Completed 10/29/2012 Visit Plan: Joint Injection-left SI joint - Pt was given post - injection instructions. The pt has been advised to use antiinflammatories post injection today, ice to the injected site, call if redness, warmth, or increased pain occurs at the site of injection. 09/21/2012 Appointment: Rika Bello WPtel: [phone] [facility] Follow up 09/21/2012 Patient Education: Patient Medication [...] control. 09/06/2012 Appointment: Tessie Motta WPtel: [phone] Follow up 09/06/2012 Patient Education: Patient Medication [...] readings are starting to become less controlled. Wkynaxtc-xmrspqkr-oqwvtpji probiotic-continue to hold metformin and repeat labs before appt in 2 weeks. Call for abd pain, worsening diarrhea, or other concerns. 08/23/2012 Appointment: Tessie Motta WPtel: [phone] [facility] Follow up 08/23/2012 Patient Education: Patient Medication [...] PLAN. 08/13/2012 Appointment: Rika Bello WPtel: [phone] [place] Follow up 08/13/2012 Patient Education: Patient Medication [...] concerns. 08/07/2012 Appointment: Rika Bello WPtel: [phone] [place] Other 08/07/2012 Patient Education: Patient Medication Summary Completed 08/07/2012 Patient Education: Hypertension Completed 08/07/2012 Visit Plan: UA-sent for culture 07/19/2012 Appointment: Rika Bello WPtel: [facility] [place] Lab Draw 07/19/2012 Patient Education: Patient Medication Summary Completed 07/19/2012 Visit Plan: Sinusitis - Pt has acute infection - pain in face, maxillary region, Pt informed to use decongestant, RX given to patient, sinus rinses also recommended. Recommend take start on probiotic while on antibiotics. Call if symptoms do not show improvement. Recommend follow up with Dr Cervantes Thrush-discussed natural and expected course of this diagnosis and to alert me if symptoms do not folow expected course, or if any worse. RX sent to patient's pharmacy-instructed to use 24 hours after symptoms completely resolve. Follow up in the office as directed 07/06/2012 Appointment: Rika Bello WPtel: [phone] Sick 07/06/2012 Patient Education: Patient Medication Summary Completed [...] given today 06/07/2012 Appointment: Tessie Motta WPtel: [phone] [facility] Follow up 06/07/2012 Appointment: Tessie Motta WPtel: [phone] [facility] Follow up 06/07/2012 Patient Education: Patient Medication [...] 10 days. 05/28/2012 Appointment: Rika Bello WPtel: [phone] [facility] Follow up 05/28/2012 Patient Education: Patient Medication [...] peripheral edema. 05/17/2012 Appointment: Rika Bello WPtel: [phone] [facility] [facility] Follow UP 05/17/2012 Patient Education: Patient Medication [...] the office 05/02/2012 Appointment: Tessie Motta WPtel: [facility]5 [facility] Follow up 05/02/2012 Patient Education: Patient Medication Summary Completed 05/02/2012 Patient Education: Hypertension Completed 05/02/2012 Appointment: Tessie Motta WPtel: [facility]8 [facility] Follow up 04/25/2012 Visit Plan: Sinusitis - [...] acute concerns. 04/10/2012 Appointment: Rika Bello WPtel: [facility] Follow up 04/10/2012 Patient Education: Patient Medication [...] I&D on Monday02/27/2012 Appointment: Rika Bello WPtel: [address] [place] [address] Follow up 02/27/2012 Patient Education: Patient Medication [...] to thighs. 02/15/2012 Appointment: Rika Bello WPtel: [facility]1 [facility] Follow up 02/15/2012 Patient Education: [...] toes to thighs. [facility] the [facility] as well. [...] of urine. 02/01/2012 Appointment: Rika Bello WPtel: [address] [place], [place] [phone] Other 02/01/2012 Patient Education: Patient Medication Summary [...] left buttocks 12/14/2011 Appointment: Tessie Motta WPtel: [facility]4 [facility] Other 12/14/2011 Patient Education: Patient Medication Summary Completed 12/14/2011 Appointment: Tessie Motta WPtel: [facility] Follow up 12/08/2011 Visit Plan: N/V/D - [...] less controlled. 11/30/2011 Appointment: Rika Bello WPtel: [facility] Other 11/30/2011 Patient Education: Patient Medication Summary [...] back pain. 11/17/2011 Appointment: Tessie Motta WPtel: [phone] [facility] Other 11/17/2011 Patient Education: Patient Medication Summary [...] - uncontrolled - will consult her primary hand drawer in for assistance with control her her heart rate. Ulcer of toe - continue with topical antibiotics as previously directed, return to clinic as previously directed, call for acute change in symptoms, worsening redness, warmth, discharge. 11/03/2011 Appointment: Bing Mottay WPtel: [phone] [facility] Other 11/03/2011 Patient Education: Patient Medication Summary [...] symptoms, worsening redness, warmth, discharge. 10/24/2011 Appointment: KaliaBingy WPtel: [phone] [facility] [place] Other 10/24/2011 Patient Education: Patient Medication [...] lymphoma. 09/26/2011 Appointment: Rika Bello WPtel: [phone] [place] Other 09/26/2011 Patient Education: Patient [...] Hypertension Completed 2011 Appointment: Tessie Motta WPtel: [address] [place] [address] Other 09/05/2011 Visit Plan: Sinusitis - Pt [...] the medication. 09/01/2011 Appointment: Tessie Motta WPtel: [address] [place] [address] Other 09/01/2011 Patient Education: Patient Medication Summary Completed 09/01/2011 Visit Plan: Sinusitis - continue with ciprofloxacin and start on corcidin HBP. Anxiety - start the xanax 0.5mg 1/2 pill twice daily. 08/15/2011 Appointment: Tessie Motta WPtel: [address] [place] [address] Other 08/15/2011 Appointment: Tessie Motta WPtel: [address] [place] [address] Other 08/15/2011 Patient Education: Patient Medication Summary [...] Plan for demerol injection today at [facility]. 08/09/2011 Appointment: Rika Bello WPtel: [address] [place] [address] Other 08/09/2011 Patient Education: Patient Medication Summary [...] not resolve 08/01/2011 Appointment: Rika Bello WPtel: [address] [place] [address] Other 08/01/2011 Patient Education: Patient Medication Summary Completed 08/01/2011 Appointment: Rika Bello WPtel: [address] [place] [address] [place] Other 07/26/2011 Appointment: Tessie Motta WPtel: [address] [place] [address] Other 07/18/2011 Visit Plan: Diabetes Mellitus - [...] management sparingly. 06/20/2011 Appointment: Tessie Motta WPtel: [phone] [facility] [facility] 06/20/2011 Patient Education: Patient Medication Summary Completed [...] month. 04/18/2011 Appointment: Tessie Motta WPtel: [phone] [facility] Other 04/18/2011 Patient Education: Patient Medication Summary Completed 04/18/2011 Patient Education: High Blood Pressure: Essential Hypertension Completed 2010 Appointment: Tessie Motta WPtel: [phone] [facility] Other 04/12/2011 Appointment: Tessie Motta WPtel: [address] Other 02/16/2011 Referral: Savanah Matt HPtel:[phone] [facility]66[facility] Referral Initiated Referral: Yareli Raines Referral Appointment [...] - will refer to Dr. Mejia . Hypertension - well controlled - continue [...] change in symptoms, worsening redness, warmth, discharge. Rbyzanpn-uqjbmjtbjvgd-jhbgw labs today-patient has been given orders multiple [...] sinusitis and part of her fatigue id annable to her chronic back pain. Toprol XL [...] assisted living -Ellis is in contact with [place] -recommend she stay at [facility] until she can move into [place]. WOUND CARE EVALUATION KEEP BLISTER CLEAN AND [...] leg-start oral abx and bactroban as directed Jlxwu-awcdorcdtpmj-ojq markie wraps, elevate leg, and again instructed [...] Dr Raines's treatment plan with Monae and Jose again today in the office. Low back [...] drainage or other s/s of infection. . Eaj-zotyuohazk-zj changes Anemia-check cbc today Dental infection-on clindamycin [...] change in blood pressure readings at home. QR-vhpxzmuergoy-fttrjtdsq strict diet and exercise with patient Low etfaogwot-iubedlqz-kxtxybmc to monitor Abd ggan-lvbiofyt-ph changes FOR CHOLESTEROL - THE NEW DOSE [...] readings are starting to become less controlled. Xwmgrdzh-rhcozvoy-ceoxubjr probiotic-continue to hold metformin and repeat labs [...] HTN-elevated today-monitor at home -follow up with hand drawer in . Open wound of qbe-yjtjkqzl-cjldwmci with dressing changes as directed-call for increase [...] symptom management sparingly. . Open wound right uoq-nmnjtw-yavu if opens up Edema - pt has been advised to elevate legs to prevent dependent edema, compression has been recommended to help to naturally decrease peripheral edema. Diuretic use has been discussed and pt has been instructed in appropriate use of such medication as necessary to further attempt to reduce peripheral edema. . Edwtqvw-glbpzgfop-imjn head injury on 12/05-did not go to ER-patient sent for STAT CT scan of head-schedule appt with Dr Dyer Adrenal insufficiency-patient suddenly stopped prednisone-instructed patient to restart and taper prednisone as directed Rib bgqi-xiwfi-engyqc fall-xray ribs START CHECKING BLOOD SUGARS!!!! BRING [...] to allow for greater blood glucose control. BDB-pfdqopcmcq-tx changes in medications at this time. Dysuria-UA [...] - uncontrolled - will consult her primary hand drawer in for assistance with control her her heart [...] with results.Patient and verbalized understanding of plan. MET-ywoqnrdjcbn-zjukw labs-monitor blood pressure and heart rate closely- [...] a prescription [facility] cipro and flagyl to [facility]. Start it today. . Sinusitis - Pt [...] for diflucan-call if symptoms do not resolve [place] balm over the counter for the knee. [...] to further attempt to reduce peripheral edema. Ltwaonhouf-zzzocrpz-dk change in treatment-continue compression hose-decrease salt/sodium in diet-call if symptoms worsen or do not resolve Zmirbcbxw-mbypncl-xqevqxai nasonex to twice daily as directed pt [...] mammogram appt with Dr Pavon for colonscopy . Medicare Exam - today we discussed [...] Her [facility] and they all agreed that she should not be driving and that she needs to be in assisted living. . ER follow up - Dr. Motta in to see pt - pt was given a script for a retirement prednisone taper - pt has not started [...] Q HS RESCHEDULE APPT WITH DR YANNA HoAcvpkvctj-lmirioycg-rs for bactroban ointment provided and instructed on use ICE-tllgaubwyx-uk change in medications Mildly elevated liver enzymes-discussed [...] Dyspnea - recommended pt to see new physical sciences professor when he gets to [facility] for further evaluation and work-up. refer to [...] take 1/2 pill - on 01/02/15 and /15 AM and PM take 1/2 pill twice [...] a prescription for lasix and potassium to [facility]. Take 2 TABLETS of LASIX and 2 [...] toes to thighs. RX sent to patient's [facility]. Chest xray at the hospital [...] control. Yeast infection -rx for nystatin powder EUFE-unlvhlmaq-oemjpo bmrbwnvnr-iywv-ettgeky is oxygen dependent due to severely compromised pulmonary and cardiac systems-will send orders to [facility] to continue oxygen . Diabetes Mellitus - [...] control. Yeast infection -rx for nystatin powder LLSU-jtvsisgmp-buzbge daklcdbrz-zirv-txyrbob is oxygen dependent due to severely compromised pulmonary and cardiac systems-will send orders to [facility] to continue oxygen . Diabetes Mellitus - [...] control. Yeast infection -rx for nystatin powder ASNG-qwndwoquk-tpdgtf xlhwiueap-shsv-kdtcvwo is oxygen dependent due to severely compromised pulmonary and cardiac systems-will send orders to [facility] to continue oxygen . 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 Diabetes Mellitus - ucontrolled- I [...] to become less controlled. Low potassium-check labs JFF-dctqkabglf-cz changes Afib-check digoxin level with labs Abdominal pain-refill levsin for prn use -call if pain uncontrolled DR Yareli Raines-you need to reschedule your appt with her -she is a acoustic intelligence specialist . Diabetes Mellitus - ucontrolled- I [...] to become less controlled. Low potassium-check labs LLO-zqjaisuvtt-pa changes Afib-check digoxin level with labs Abdominal [...] PAIN MANAGEMENT FOR INJECTIONS STOP BY [employer] FOR NEW CPAP SUPPLIES . Hypertension - [...] every night DM-check Hgb A1C Hypothyroidism-check level Uzdnlyq-qiugiidrbg-obo well controlled-increase cymbalta-recommend counseling . Diabetes Mellitus [...] she needs to...RESCHEDULE APPT WITH DR RAINES XUO-swnqnsfysi-bn change in medications CPAP NEBULIZER CHECK UA [...]
--- OUTSIDE RECORDS SUMMARY | 2018-06-04 12:28 | XMS REPORT | CCD ---
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 Name Role Phone Tessie Motta PP Unavailable CCM Unavailable Summary Purpose Interface Exchange Insurance Providers Payer name Policy type / Coverage type Covered green party ID Effective Begin Date Effective End Date WPS Medicare Part B Medicare Part B [id number] 2015 Unknown [facility] Medicare Part B [id number] Unknown Family history Son Diagnosis Age At [...] Social History Element Codes Description Effective Dates Employment Unknown Retired 11/14/2013 Marital status Unknown 08/21/2011 Number of children Unknown 2 08/21/2011 Living arrangements Unknown House 08/21/2011 Education level Unknown College Graduate 08/21/[address]: 706616184 Never smoker 02/11/[address]: 234465177 Never drinks alcohol 02/11/2011 Has the patient ever used illegal drugs? Unknown Has never used illegal drugs 02/11/2011 Allergies, Adverse Reactions, Alerts Substance Reaction Codes Entered Date Inactivated Date Status CODEINE RxNorm: 2670 02/11/2011 No Inactive Date Active * NO KNOWN FOOD ALLERGIES Unknown 02/01/2012 No Inactive Date Active cefdinir RxNorm: 59313 08/07/2012 No Inactive Date Active PENICILLINS Unknown 02/11/2011 No Inactive Date Active SULFA (SULFONAMIDES) Unknown 02/11/2011 No Inactive Date Active Tetanus Unknown 02/11/2011 No Inactive Date Active Past Medical History Illness Codes Condition Status Onset Date Resolved Date Essential (primary) hypertension ICD-9: 401.1 ICD-10: I10 Active 06/13/2017 Unknown Generalized anxiety disorder ICD-9: 300.00 ICD-10: F41.1 Active 05/16/2018 Unknown Chronic maxillary sinusitis ICD-9: 473.0 ICD-10: J32.0 Active 01/30/2017 Unknown Cough ICD-9: 786.2 ICD-10: R05 Active 11/09/2015 Unknown Type 2 diabetes mellitus with hyperglycemia ICD-9: 250.00 ICD-10: E11.65 Active 05/23/2016 Unknown Generalized anxiety disorder ICD-9: 300.02 ICD-10: [...] ICD-9: 255.41 ICD-10: E27.3 Active 12/16/2015 Unknown Headache ICD-9: 784.0 ICD-10: R51 Active 12/16/2015 Unknown Pleurodynia ICD-9: 786.50 ICD-10: [...] Problems Condition Codes Effective Dates Condition Status Essential (primary) hypertension ICD-9: 401.1 ICD-10: I10 06/13/2017 Active Generalized anxiety disorder ICD-9: 300.00 ICD-10: F41.1 05/16/2018 Active Chronic maxillary sinusitis ICD-9: 473.0 ICD-10: J32.0 01/30/2017 Active Cough ICD-9: 786.2 ICD-10: R05 11/09/2015 Active Type 2 diabetes mellitus with hyperglycemia ICD-9: 250.00 ICD-10: E11.65 05/23/2016 Active Generalized anxiety disorder ICD-9: 300.02 ICD-10: [...] insufficiency ICD-9: 255.41 ICD-10: E27.3 12/16/2015 Active Headache ICD-9: 784.0 ICD-10: R51 12/16/2015 Active Pleurodynia ICD-9: 786.50 ICD-10: R07.81 [...] Start Date Stop Date Status Fill Instructions Novolog Flexpen U-100 Insulin aspart 100 unit/mL subcutaneous RxNorm: 4538402 10 units with meals plus SSI in [...] 300 unit/mL (1.5 mL) subcutaneous pen RxNorm: 0562121 25 in am and 55 at HS Unit(s) SQ BID per dr raines 05/16/2018 06/14/2018 Active Xanax 0.5 mg tablet RxNorm: 688891 1 Tablet(s) BID as needed 05/16/2018 06/14/2018 Active nystatin 100,000 unit/mL oral suspension RxNorm: 010570 Unit(s) 5 Milliliter(s) PO QID swish and swallow 05/07/20182017 Inactive Tessalon Perles 100 mg capsule RxNorm: 876707 Capsule(s) Capsule(s) 2 Capsule(s) PO TID as needed 05/03/2018 No Stop Date Active Percocet 10 mg-325 mg tablet RxNorm: 9132214 1-2 Tablet(s) PO Q6 PRN 05/03/2018 05/17/2018 Inactive FreeStyle Test strips RxNorm: USE ONE STRIP TO CHECK GLUCOSE 4 TIMES DAILY 04/30/2018 No Stop Date Active promethazine 25 mg tablet RxNorm: 154089 Tablet(s) 1 Tablet(s) PO Q6 PRN TAKE NEEDED ONLY!!! 04/27/2018 No Stop Date Active digoxin 125 mcg tablet RxNorm: 506994 TAKE 1 TABLET BY MOUTH ONCE DAILY 04/23/2018 No Stop Date Active Lasix 40 mg tablet RxNorm: 626939 TAKE 1 TABLET BY MOUTH TWICE DAILY 04/19/2018 No Stop Date Active Vitamin D2 50,000 unit capsule RxNorm: 3067816 1 Capsule(s) PO QW 04/17/2018 06/15/2018 Active Tessalon Perles 100 mg capsule RxNorm: 477894 Capsule(s) Capsule(s) 2 Capsule(s) PO TID as needed 04/17/2018 05/02/2018 Inactive Xanax 0.5 mg tablet RxNorm: 947479 1 Tablet(s) BID as needed 04/09/2018 05/08/2018 Inactive Percocet 10 mg-325 mg tablet RxNorm: 8225323 1-2 Tablet(s) PO Q6 PRN 04/05/2018 04/19/2018 Inactive colestipol 1 gram tablet RxNorm: 6349398 TAKE ONE TABLET BY MOUTH TWICE DAILY 03/30/2018 No Stop Date Active Tessalon Perles 100 mg capsule RxNorm: 071272 Capsule(s) Capsule(s) 2 Capsule(s) PO TID as needed 03/21/2018 04/16/2018 Inactive nystatin 100,000 unit/mL oral suspension RxNorm: 032784 Unit(s) 5 Milliliter(s) PO QID swish and swallow 03/21/20182017 Inactive Xanax 0.5 mg tablet RxNorm: 831527 Tablet(s) BID as needed 04/09/2018 Inactive Slow Fe 47.5 mg iron tablet,extended release RxNorm: 1 Tablet(s) PO every other day 03/12/2018 04/10/2018 Inactive Percocet 10 mg-325 mg tablet RxNorm: 3595799 1-2 Tablet(s) PO Q6 PRN 03/12/2018 03/26/2018 Inactive Slow Fe 47.5 mg iron tablet,extended release RxNorm: 1 Tablet(s) PO 3 x week 02/28/2018 03/11/2018 Inactive promethazine 25 mg tablet RxNorm: 832642 Tablet(s) 1 Tablet(s) PO Q6 PRN TAKE NEEDED ONLY!!! 02/21/2018 04/26/2018 Inactive gabapentin 600 mg tablet RxNorm: 741613 Tablet(s) TAKE ONE & ONE-HALF TABLETS BY MOUTH THREE TIMES DAILY 02/20/20182018 Active Cymbalta 60 mg capsule,delayed release RxNorm: 437869 1 Capsule(s) PO daily take with 30mg tablet 02/20/2018 08/18/2018 Active Cymbalta 30 mg capsule,delayed release RxNorm: 559528 Capsule(s) TAKE ONE CAPSULE BY MOUTH ONCE DAILY - TAKE WITH THE 60 MG DOSE FOR A TOTAL OF 90 MG 02/20/2018 08/18/2018 Active Vitamin D2 50,000 unit capsule RxNorm: 2184273 1 Capsule(s) PO QW 02/20/2018 02/19/2018 Inactive Vitamin D2 50,000 unit capsule RxNorm: 4421374 1 Capsule(s) PO QW 02/20/2018 04/16/2018 Inactive mupirocin 2 % topical ointment RxNorm: 452455 APPLY TO SORE IN BELLY BUTTON TWICE DAILY 02/15/2018 No Stop Date Active Percocet 10 mg-325 mg tablet RxNorm: 5574306 1-2 Tablet(s) PO Q6 PRN 02/14/2018 02/28/2018 Inactive Toujeo SoloStar U-300 Insulin 300 unit/mL (1.5 mL) subcutaneous pen RxNorm: 3168344 40 Unit(s) SQ BID per dr raines 02/07/2018 03/08/2018 Inactive nystatin 100,000 unit/mL oral suspension RxNorm: 582031 5 Milliliter(s) PO QID swish and swallow 02/02/2018 02/11/2018 Inactive mupirocin 2 % topical ointment RxNorm: 988722 1 Application TOP BID 01/30/2018 02/08/2018 Inactive Tessalon Perles 100 mg capsule RxNorm: 251572 Capsule(s) 2 Capsule(s) PO TID as needed 01/23/2018 03/20/2018 Inactive Xanax 0.5 mg tablet RxNorm: 737866 Tablet(s) TAKE ONE TABLET BY MOUTH THREE TIMES DAILY NEEDED 01/17/20182017 Inactive ropinirole 1 mg tablet RxNorm: 804640 1 Tablet(s) PO BID 201705/10/2018 Inactive digoxin 125 mcg tablet RxNorm: 217135 1 Tablet(s) PO daily 04/22/2018 Inactive Percocet 10 mg-325 mg tablet RxNorm: 8469570 1-2 Tablet(s) PO Q6 PRN 01/04/2018 01/18/2018 Inactive Percocet 10 mg-325 mg tablet RxNorm: 8698816 1-2 Tablet(s) PO Q6 PRN 01/02/2018 01/03/2018 Inactive promethazine 25 mg tablet RxNorm: 253616 Tablet(s) 1 Tablet(s) PO Q6 PRN TAKE NEEDED ONLY!!! 01/02/2018 02/20/2018 Inactive pantoprazole 40 mg tablet,delayed release RxNorm: 327510 TAKE 1 TABLET BY MOUTH ONCE DAILY 12/25/2017 No Stop Date Active mupirocin 2 % topical ointment RxNorm: 281892 1 Application TOP BID 12/22/2017 12/31/2017 Inactive fluconazole 150 mg tablet RxNorm: 744163 1 Tablet(s) PO every other day x 3 doses 12/14/2017 12/23/2017 Inactive Percocet 10 mg-325 mg tablet RxNorm: 1925361 1-2 Tablet(s) PO Q6 PRN 12/13/2017 12/27/2017 Inactive hyoscyamine 0.125 mg sublingual tablet RxNorm: 1230427 Tablet(s) 1 Tablet(s) SL TID as needed 12/13/2017 04/11/2018 Inactive nystatin 100,000 unit/gram topical powder RxNorm: 028634 APPLY POWDER TOPICALLY 4 TIMES DAILY 12/11/2017 No Stop Date Active Xanax 0.5 mg tablet RxNorm: 685451 Tablet(s) TAKE ONE TABLET BY MOUTH THREE TIMES DAILY NEEDED 12/06/20172017 Inactive nitrofurantoin 50 mg capsule RxNorm: 208387 1 Capsule(s) PO BID 12/01/2017 11/30/2017 Inactive take probiotic BID x 7 days nitrofurantoin 50 mg capsule RxNorm: 872523 1 Capsule(s) PO BID 12/01/2017 12/07/2017 Inactive take probiotic BID x 7 days mupirocin 2 % topical ointment RxNorm: 005393 1 Application TOP BID 11/27/2017 12/06/2017 Inactive Tessalon Perles 100 mg capsule RxNorm: 230843 Capsule(s) 2 Capsule(s) PO TID as needed 11/21/2017 01/22/2018 Inactive nystatin 100,000 unit/mL oral suspension RxNorm: 509091 5 Milliliter(s) PO QID swish and swallow 11/17/2017 11/26/2017 Inactive nystatin 100,000 unit/mL oral suspension RxNorm: 767573 5 Milliliter(s) PO QID swish and swallow 11/17/2017 11/16/2017 Inactive Toprol XL 100 mg tablet,extended release RxNorm: 128205 TAKE ONE TABLET BY MOUTH TWICE DAILY 11/15/2017 No Stop Date Active ropinirole 1 mg tablet RxNorm: 275321 Tablet(s) BID 11/14/2017 01/10/2018 Inactive Diflucan 150 mg tablet RxNorm: 101272 Tablet(s) every other day 1 Tablet(s) PO every other day 11/14/2017 11/16/2017 Inactive Percocet 10 mg-325 mg tablet RxNorm: 6486422 1-2 Tablet(s) PO Q6 PRN 11/09/2017 11/23/2017 Inactive Flonase Allergy Relief 50 mcg/actuation nasal spray, suspension RxNorm: 4689490 2 [place] NASAL daily 11/06/20172017 Inactive cyclobenzaprine 10 mg tablet RxNorm: 617306 Tablet(s) TABLET(S) 1 TABLET(S) PO NEEDED TAKE 1 TABLET BY MOUTH EVERY 8 HOURS NEEDED 2017 No Stop Date Active Cymbalta 30 mg capsule,delayed release RxNorm: 495243 TAKE ONE CAPSULE BY MOUTH ONCE DAILY - TAKE WITH THE 60 MG DOSE FOR A TOTAL OF 90 MG 02/19/2018 Inactive Lantus Solostar U-100 Insulin 100 unit/mL (3 mL) subcutaneous pen RxNorm: 126757 Unit(s) SQ 35 units QAM and 55 units QHS Unit(s) SQ 10/27/2017 02/07/2018 Inactive Wants insulin pens Percocet 10 mg-325 mg tablet RxNorm: 3765498 1-2 Tablet(s) PO Q6 PRN 10/27/2017 11/08/2017 Inactive promethazine 25 mg tablet RxNorm: 924349 Tablet(s) 1 Tablet(s) PO Q6 PRN TAKE NEEDED ONLY!!! 10/27/2017 01/01/2018 Inactive Xanax 0.5 mg tablet RxNorm: 484227 Tablet(s) TAKE ONE TABLET BY MOUTH THREE TIMES DAILY 10/20/2017 04/08/2018 Inactive Tessalon Perles 100 mg capsule RxNorm: 455836 Capsule(s) 2 Capsule(s) PO TID as needed 10/19/2017 11/20/2017 Inactive Diflucan 150 mg tablet RxNorm: 323926 1 Tablet(s) PO every other day 10/15/2017 11/13/2017 Inactive Percocet 10 mg-325 mg tablet RxNorm: 0351919 1-2 Tablet(s) PO Q6 PRN 10/06/2017 10/20/2017 Inactive pantoprazole 40 mg tablet,delayed release RxNorm: 486751 1 Tablet(s) PO BID 10/03/2017 03/31/2018 Inactive Cymbalta 60 mg capsule,delayed release RxNorm: 492648 TAKE ONE CAPSULE BY MOUTH ONCE DAILY 09/21/2017 02/19/2018 Inactive Diflucan 150 mg tablet RxNorm: 218519 1 Tablet(s) PO every other day 09/15/2017 09/19/2017 Inactive hyoscyamine 0.125 mg sublingual tablet RxNorm: 4248294 1 Tablet(s) SL TID as needed 09/08/2017 12/12/2017 Inactive Lantus Solostar U-100 Insulin 100 unit/mL (3 mL) subcutaneous pen RxNorm: 386578 Unit(s) SQ 35 units QAM and 55 units QHS Unit(s) SQ 09/06/2017 09/20/2017 Inactive Wants insulin pens Lasix 40 mg tablet RxNorm: 645705 TAKE ONE TABLET BY MOUTH TWICE DAILY 08/25/2017 04/18/2018 Inactive ropinirole 1 mg tablet RxNorm: 787454 TAKE ONE TABLET BY MOUTH AT BEDTIME 08/25/2017 11/13/2017 Inactive Lantus U-100 Insulin 100 unit/mL subcutaneous solution RxNorm: 669062 35 units QAM and 55 units QHS Unit(s) SQ 08/21/2017 09/05/2017 Inactive Tessalon Perles 100 mg capsule RxNorm: 822450 Capsule(s) 2 Capsule(s) PO TID as needed 08/18/2017 10/18/2017 Inactive Percocet 10 mg-325 mg tablet RxNorm: 9958773 1-2 Tablet(s) PO Q6 PRN 08/16/2017 08/30/2017 Inactive pantoprazole 40 mg tablet,delayed release RxNorm: 746477 TAKE ONE TABLET BY MOUTH TWICE DAILY 08/14/2017 08/13/2017 Inactive pantoprazole 40 mg tablet,delayed release RxNorm: 825712 1 Tablet(s) PO daily 08/14/2017 10/02/2017 Inactive promethazine 25 mg tablet RxNorm: 250850 Tablet(s) 1 Tablet(s) PO Q6 PRN TAKE NEEDED ONLY!!! 08/11/2017 10/26/2017 Inactive omeprazole 20 mg capsule,delayed release RxNorm: 890812 1 Capsule(s) PO daily TAKE 1 CAPSULE BY MOUTH ONCE DAILY 08/07/2017 10/26/2017 Inactive nystatin 100,000 unit/mL oral suspension RxNorm: 001366 5 Milliliter(s) PO QID swish and swallow 08/07/2017 08/16/2017 Inactive mupirocin 2 % topical ointment RxNorm: 748288 APPLY TO SORE IN BELLY BUTTON TWICE DAILY 08/07/2017 02/14/2018 Inactive omeprazole 20 mg capsule,delayed release RxNorm: 750442 1 Capsule(s) PO BID TAKE 1 CAPSULE BY MOUTH TWICE DAILY 08/03/2017 08/06/2017 Inactive Diflucan 150 mg tablet RxNorm: 058757 1 Tablet(s) PO daily 08/05/2017 Inactive hyoscyamine 0.125 mg sublingual tablet RxNorm: 2118104 1 Tablet(s) SL TID as needed 08/03/2017 09/01/2017 Inactive gentamicin 0.3 % eye drops RxNorm: 993377 2 Drop(s) ophthalmic (eye) TID 08/03/2017 08/09/2017 Inactive Levaquin 500 mg tablet RxNorm: 428443 1 Tablet(s) PO every other day x3 doses 07/27/2017 08/02/2017 Inactive gentamicin 0.3 % eye drops RxNorm: 687007 2 Drop(s) ophthalmic (eye) TID 07/27/2017 08/02/2017 Inactive dicyclomine 10 mg capsule RxNorm: 416155 1 Capsule(s) PO TID 08/02/2017 Inactive Levaquin 500 mg tablet RxNorm: 107275 1 Tablet(s) PO daily 12/201707/26/2017 Inactive Lantus U-100 Insulin 100 unit/mL subcutaneous solution RxNorm: 873070 INJECT 35 UNITS SUBCUTANEOUSLY IN THE MORNING AND 55 UNITS AT BEDTIME 07/24/2017 09/05/2017 Inactive Tessalon Perles 100 mg capsule RxNorm: 167101 2 Capsule(s) PO TID as needed 07/24/2017 08/17/2017 Inactive Percocet 10 mg-325 mg tablet RxNorm: 1886314 1-2 Tablet(s) PO Q6 PRN 07/21/2017 08/04/2017 Inactive promethazine 25 mg tablet RxNorm: 904491 1 Tablet(s) PO Q6 PRN 1 Tablet(s) PO Q6 PRN 07/19/2017 07/26/2017 Inactive Cartia XT 240 mg capsule,extended release RxNorm: 367882 1 Capsule(s) PO daily 06/27/2017 06/21/2018 Active potassium chloride ER 20 mEq tablet,extended release RxNorm: 015653 Tablet(s) TAKE ONE TABLET BY MOUTH ONCE DAILY 06/21/2017 No Stop Date Active Lantus U-100 Insulin 100 unit/mL subcutaneous solution RxNorm: 846626 35 units QAM and 55 units QHS Unit(s) SQ 06/21/2017 07/20/2017 Inactive Please provide 30 day supply Percocet 10 mg-325 mg tablet RxNorm: 3504871 1-2 Tablet(s) PO Q6 PRN 06/21/2017 07/05/2017 Inactive Cartia XT 180 mg capsule,extended release RxNorm: 869469 Capsule(s) BID 06/21/2017 06/26/2017 Inactive Xanax 0.5 mg tablet RxNorm: 603644 Tablet(s) TAKE ONE TABLET BY MOUTH THREE TIMES DAILY 06/21/2017 08/19/2017 Inactive digoxin 125 mcg tablet RxNorm: 193857 1 Tablet(s) PO daily 10/18/2017 Inactive gabapentin 600 mg tablet RxNorm: 354018 Tablet(s) TAKE ONE & ONE-HALF TABLETS BY MOUTH THREE TIMES DAILY 06/21/20172017 Inactive dicyclomine 10 mg capsule RxNorm: 206847 1 Capsule(s) PO TID 07/26/2017 Inactive Lantus U-100 Insulin 100 unit/mL subcutaneous solution RxNorm: 247951 35 units QAM and 55 units QHS Unit(s) SQ 06/13/2017 06/20/2017 Inactive Please provide 30 day supply potassium chloride ER 20 mEq tablet,extended release RxNorm: 893117 TAKE ONE TABLET BY MOUTH ONCE DAILY 06/02/2017 Inactive cyclobenzaprine 10 mg tablet RxNorm: 498242 Tablet(s) TABLET(S) 1 TABLET(S) PO NEEDED TAKE 1 TABLET BY MOUTH EVERY 8 HOURS NEEDED 201711/02/2017 Inactive Tessalon Perles 100 mg capsule RxNorm: 547232 2 Capsule(s) PO TID as needed 06/01/2017 07/23/2017 Inactive promethazine 25 mg tablet RxNorm: 324710 1 Tablet(s) PO Q6 PRN 1 Tablet(s) PO Q6 PRN 05/25/2017 06/01/2017 Inactive gabapentin 600 mg tablet RxNorm: 999233 TAKE ONE & ONE-HALF TABLETS BY MOUTH THREE TIMES DAILY 05/23/2017 06/20/2017 Inactive promethazine 25 mg tablet RxNorm: 456565 1 Tablet(s) PO Q6 PRN 1 Tablet(s) PO Q6 PRN 05/19/2017 05/24/2017 Inactive Flagyl 500 mg tablet RxNorm: 165150 1 Tablet(s) PO TID 201605/26/2017 Inactive Levaquin 500 mg tablet RxNorm: 629910 1 Tablet(s) PO daily 05/16/2017 Inactive Tessalon Perles 100 mg capsule RxNorm: 390846 2 Capsule(s) PO TID as needed 05/17/2017 05/31/2017 Inactive Flagyl 500 mg tablet RxNorm: 009478 1 Tablet(s) PO TID 201605/16/2017 Inactive hyoscyamine 0.125 mg sublingual tablet RxNorm: 2712752 1 Tablet(s) SL TID as needed 05/17/2017 06/12/2017 Inactive Levaquin 500 mg tablet RxNorm: 328170 1 Tablet(s) PO daily 05/23/2017 Inactive Cymbalta 60 mg capsule,delayed release RxNorm: 743027 1 Capsule(s) PO daily take with 30mg tablet 05/16/2017 08/13/2017 Inactive Bentyl 10 mg capsule RxNorm: 345265 1 Capsule(s) PO TID as needed 05/12/2017 06/10/2017 Inactive Levsin 0.125 mg tablet RxNorm: 4150350 1 Tablet(s) PO Q4 PRN 1-2 Tablet(s) PO Q4 PRN 05/11/2017 05/11/2017 Inactive nystatin 100,000 unit/gram topical powder RxNorm: 828877 Gram(s) APPLY POWDER TOPICALLY 4 TIMES DAILY 05/11/20172017 Inactive nystatin 100,000 unit/mL oral suspension RxNorm: 304086 4 Milliliter(s) PO QID swish and swallow 05/10/2017 05/19/2017 Inactive and Monistat over the counter colestipol 1 gram tablet RxNorm: 4049975 TAKE ONE TABLET BY MOUTH TWICE DAILY 05/08/2017 03/29/2018 Inactive Lantus 100 unit/mL subcutaneous solution RxNorm: 680081 30 units QAM and 50 units QHS Unit(s) SQ 04/28/2017 05/27/2017 Inactive Please provide 30 day supply Lantus Solostar 100 unit/mL (3 mL) subcutaneous insulin pen RxNorm: 140851 Unit( s) SQ BID 04/28/2017 06/13/2017 Inactive 30 units q am and 50units at night Lantus 100 unit/mL subcutaneous solution RxNorm: 373323 30 units QAM and 50 units QHS Unit(s) SQ 04/28/2017 04/27/2017 Inactive Please provide 30 day supply Levsin 0.125 mg tablet RxNorm: 3710379 1 Tablet(s) PO Q4 PRN 1-2 Tablet(s) PO Q4 PRN 04/25/2017 05/10/2017 Inactive promethazine 25 mg tablet RxNorm: 450982 1 Tablet(s) PO Q6 PRN 1 Tablet(s) PO Q6 PRN 04/25/2017 05/02/2017 Inactive Toprol XL 100 mg tablet,extended release RxNorm: 616048 TAKE ONE TABLET BY MOUTH TWICE DAILY 04/24/2017 11/14/2017 Inactive Flagyl 500 mg tablet RxNorm: 814091 1 Tablet(s) PO TID 201604/30/2017 Inactive Levaquin 500 mg tablet RxNorm: 478206 1 Tablet(s) PO daily 05/201604/27/2017 Inactive Voltaren 1 % topical gel RxNorm: 244100 4 Gram(s) TOP QID 04/1810/14/2017 Inactive mupirocin 2 % topical ointment RxNorm: 732715 1 Application TOP BID 04/18/2017 04/27/2017 Inactive apply to sore in belly button Lantus Solostar 100 unit/mL (3 mL) subcutaneous insulin pen RxNorm: 045867 Unit( s) SQ BID 04/18/2017 04/27/2017 Inactive 20 units q am and 50units at night levothyroxine 88 mcg tablet RxNorm: 644287 1 Tablet(s) PO daily TAKE ONE TABLET BY MOUTH ONCE DAILY 04/06/2017 04/17/2017 Inactive Xanax 0.5 mg tablet RxNorm: 727634 Tablet(s) TAKE ONE TABLET BY MOUTH THREE TIMES DAILY 04/04/2017 06/02/2017 Inactive Percocet 10 mg-325 mg tablet RxNorm: 1430036 1-2 Tablet(s) PO Q6 PRN 04/04/2017 04/18/2017 Inactive cyclobenzaprine 10 mg tablet RxNorm: 664691 TAKE ONE TABLET BY MOUTH EVERY 8 HOURS NEEDED 04/03/2017 06/01/2017 Inactive potassium chloride ER 20 mEq tablet,extended release RxNorm: 713937 1 Tablet(s) PO daily 03/28/2017 06/01/2017 Inactive nystatin 100,000 unit/gram topical cream RxNorm: 773353 1 Application TOP BID 03/27/2017 04/09/2017 Inactive Levsin 0.125 mg tablet RxNorm: 7445755 1 Tablet(s) PO Q4 PRN 1-2 Tablet(s) PO Q4 PRN 03/27/2017 04/24/2017 Inactive promethazine 25 mg tablet RxNorm: 553448 1 Tablet(s) PO Q6 PRN 03/23/2017 03/29/2017 Inactive nystatin 100,000 unit/gram topical powder RxNorm: 735982 APPLY POWDER TOPICALLY 4 TIMES DAILY 03/17/2017 05/10/2017 Inactive Percocet 10 mg-325 mg tablet RxNorm: 1646182 1-2 Tablet(s) PO Q6 PRN 03/09/2017 03/23/2017 Inactive Levsin 0.125 mg tablet RxNorm: 8941332 1-2 Tablet(s) PO Q4 PRN 03/06/2017 03/26/2017 Inactive promethazine 25 mg tablet RxNorm: 744686 1 Tablet(s) PO Q6 PRN 03/06/2017 03/13/2017 Inactive potassium chloride ER 20 mEq tablet,extended release RxNorm: 349950 1 Tablet(s) PO BID 02/23/2017 03/09/2017 Inactive Levsin/SL 0.125 mg sublingual tablet RxNorm: 8818076 1-2 Tablet(s) SL Q4 PRN 02/17/2017 03/26/2017 Inactive potassium chloride ER 20 mEq tablet,extended release RxNorm: 413849 1 Tablet(s) PO BID 02/17/2017 02/21/2017 Inactive magnesium oxide 400 mg tablet RxNorm: 441863 1 Tablet(s) PO daily 02/17/2017 02/21/2017 Inactive then twice weekly thereafter Levsin 0.125 mg tablet RxNorm: 0168241 1-2 Tablet(s) PO Q4 PRN 02/17/2017 02/16/2017 Inactive promethazine 25 mg tablet RxNorm: 214982 1 Tablet(s) PO Q6 PRN 02/10/2017 03/05/2017 Inactive Percocet 10 mg-325 mg tablet RxNorm: 2101886 1-2 Tablet(s) PO Q6 PRN 02/09/2017 02/23/2017 Inactive Cymbalta 60 mg capsule,delayed release RxNorm: 130905 1 Capsule(s) PO daily take with 30mg tablet 02/06/2017 05/06/2017 Inactive Cymbalta 30 mg capsule,delayed release RxNorm: 280452 1 Capsule(s) PO daily take with 60mg tablet 02/06/2017 02/19/2018 Inactive take with 60mg=90mg Vitamin D2 50,000 unit capsule RxNorm: 718717 1 Capsule(s) PO daily 01/17/2017 01/16/2017 Inactive daily x 6 mths Tresiba FlexTouch U-100 100 unit/mL (3 mL) subcutaneous insulin pen RxNorm: 4098910 40 Unit(s) SQ daily 01/17/20172016 Inactive Tresiba FlexTouch U-100 100 unit/mL (3 mL) subcutaneous insulin pen RxNorm: 5998107 40 Unit(s) SQ daily 01/17/20172016 Inactive Vitamin D2 50,000 unit capsule RxNorm: 142902 1 Capsule(s) PO daily 01/17/2017 10/26/2017 Inactive daily x 6 mths Cymbalta 30 mg capsule,delayed release RxNorm: 801357 1 Capsule(s) PO daily 01/16/2017 02/05/2017 Inactive take with 60mg=90mg Percocet 10 mg-325 mg tablet RxNorm: 4644628 1-2 Tablet(s) PO Q6 PRN 01/13/2017 01/27/2017 Inactive gabapentin 600 mg tablet RxNorm: 412558 TAKE ONE & ONE-HALF TABLETS BY MOUTH THREE TIMES DAILY 01/10/2017 05/09/2017 Inactive Percocet 10 mg-325 mg tablet RxNorm: 4788353 1-2 Tablet(s) PO Q6 PRN 12/21/2016 01/04/2017 Inactive Xanax 0.5 mg tablet RxNorm: 390245 Tablet(s) TAKE ONE TABLET BY MOUTH THREE TIMES DAILY 12/20/2016 02/15/2017 Inactive promethazine 25 mg tablet RxNorm: 476829 1 Tablet(s) PO Q6 PRN 12/16/2016 12/18/2016 Inactive prednisone 20 mg tablet RxNorm: 908727 2 Tablet(s) PO daily 12/14/2016 Inactive prednisone 20 mg tablet RxNorm: 639363 2 Tablet(s) PO daily 03/26/2017 Inactive Eliquis 5 mg tablet RxNorm: 2239147 1 Tablet(s) PO BID 201601/11/2017 Inactive doxycycline monohydrate 100 mg tablet RxNorm: 787232 1 Tablet(s) PO BID 12/13/2016 03/26/2017 Inactive give doxycyline hyclate cyclobenzaprine 10 mg tablet RxNorm: 032582 TAKE ONE TABLET BY MOUTH EVERY 8 HOURS NEEDED 12/09/2016 12/28/2016 Inactive Cymbalta 60 mg capsule,delayed release RxNorm: 278982 TAKE ONE CAPSULE BY MOUTH ONCE DAILY 11/30/2016 02/05/2017 Inactive promethazine 25 mg tablet RxNorm: 985559 2 Tablet(s) PO Q6 PRN 11/29/2016 12/16/2016 Inactive Percocet 10 mg-325 mg tablet RxNorm: 1271524 1-2 Tablet(s) PO Q6 PRN 11/24/2016 12/08/2016 Inactive mupirocin 2 % topical ointment RxNorm: 991121 1 Application TOP BID 11/11/2016 11/24/2016 Inactive Xanax 0.5 mg tablet RxNorm: 448396 Tablet(s) TAKE ONE TABLET BY MOUTH THREE TIMES DAILY 11/11/2016 12/19/2016 Inactive Belviq 10 mg tablet RxNorm: 9632011 1 Tablet(s) PO BID 201612/10/2016 Inactive Toprol XL 100 mg tablet,extended release RxNorm: 377297 TAKE ONE TABLET BY MOUTH TWICE DAILY 11/04/2016 04/02/2017 Inactive albuterol sulfate concentrate 2.5 mg/0.5 mL solution for nebulization RxNorm: 331110 USE ONE VIAL IN NEBULIZER EVERY 4 TO 6 HOURS NEEDED 11/03/2016 11/12/2016 Inactive Percocet 10 mg-325 mg tablet RxNorm: 1032351 1-2 Tablet(s) PO Q6 PRN 10/31/2016 11/23/2016 Inactive promethazine 25 mg tablet RxNorm: 856260 2 Tablet(s) PO Q6 PRN 10/28/2016 11/28/2016 Inactive nystatin 100,000 unit/mL oral suspension RxNorm: 933739 5 Milliliter(s) PO QID 10/28/2016 11/06/2016 Inactive Levemir FlexTouch 100 unit/mL (3 mL) subcutaneous insulin pen RxNorm: 903603 45 Unit(s) SQ BID 10/28/2016 01/16/2017 Inactive 45 q am and 40 q anita cyclobenzaprine 10 mg tablet RxNorm: 758924 TAKE ONE TABLET BY MOUTH EVERY 8 HOURS NEEDED 10/21/2016 11/09/2016 Inactive Lasix 40 mg tablet RxNorm: 684560 TAKE ONE TABLET BY MOUTH TWICE DAILY 10/18/2016 04/15/2017 Inactive Percocet 10 mg-325 mg tablet RxNorm: 9888936 1-2 Tablet(s) PO Q6 PRN 10/18/2016 10/30/2016 Inactive acyclovir 400 mg tablet RxNorm: 542453 2 Tablet(s) PO QID 10/1310/22/2016 Inactive Lasix 40 mg tablet RxNorm: 849475 TAKE ONE TABLET BY MOUTH TWICE DAILY 10/10/2016 10/17/2016 Inactive ropinirole 1 mg tablet RxNorm: 314674 TAKE ONE TABLET BY MOUTH AT BEDTIME 10/10/2016 04/07/2017 Inactive nystatin 100,000 unit/mL oral suspension RxNorm: 526441 5 Milliliter(s) PO QID x 10 days 09/30/2016 10/09/2016 Inactive nystatin 100,000 unit/mL oral suspension RxNorm: 666910 5 Milliliter(s) PO QID x 10 days 09/30/2016 10/09/2016 Inactive Swish et swallow Flonase Allergy Relief 50 mcg/actuation nasal spray, suspension RxNorm: 8834118 2 [place] NASAL daily 09/23/20162016 Inactive Percocet 10 mg-325 mg tablet RxNorm: 6702525 1-2 Tablet(s) PO Q6 PRN 09/23/2016 10/17/2016 Inactive doxycycline monohydrate 100 mg tablet RxNorm: 003092 1 Tablet(s) PO BID 09/23/2016 10/02/2016 Inactive give doxycyline hyclate Levemir FlexTouch 100 unit/mL (3 mL) subcutaneous insulin pen RxNorm: 521730 40 Unit(s) SQ BID 09/15/2016 10/27/2016 Inactive nystatin 100,000 unit/gram topical powder RxNorm: 899615 1 Application TOP QID 09/13/2016 09/22/2016 Inactive Voltaren 1 % topical gel RxNorm: 810589 4 Gram(s) TOP QID 09/1303/11/2017 Inactive Anusol-HC 25 mg rectal suppository RxNorm: 2413031 1 Suppository RTL HS 09/13/2016 09/26/2016 Inactive hydrocodone 10 mg-acetaminophen 325 mg tablet RxNorm: 078974 1-2 Tablet(s) PO Q6 as needed 09/13/2016 09/22/2016 Inactive Linzess 145 mcg capsule RxNorm: 5243363 1 Capsule(s) PO daily 09/01/2016 10/26/2017 Inactive Linzess 145 mcg capsule RxNorm: 9938749 1 Capsule(s) PO daily 09/01/2016 08/31/2016 Inactive Zofran 4 mg tablet RxNorm: 017305 TAKE ONE TABLET BY MOUTH EVERY 4 TO 6 HOURS NEEDED 08/29/2016 08/02/2017 Inactive Voltaren 1 % topical gel RxNorm: 448438 4 Gram(s) TOP QID 08/2309/12/2016 Inactive levothyroxine 88 mcg tablet RxNorm: 790528 TAKE ONE TABLET BY MOUTH ONCE DAILY 08/19/2016 12/16/2016 Inactive hydrocodone 10 mg-acetaminophen 325 mg tablet RxNorm: 296975 1 Tablet(s) PO Q6 as needed 08/17/2016 09/12/2016 Inactive nystatin 100,000 unit/gram topical powder RxNorm: 125375 1 Application TOP QID 08/16/2016 08/25/2016 Inactive Cymbalta 60 mg capsule,delayed release RxNorm: 043672 TAKE ONE CAPSULE BY MOUTH ONCE DAILY 08/10/2016 11/29/2016 Inactive Voltaren 1 % topical gel RxNorm: 522941 4 Gram(s) TOP QID 08/1008/22/2016 Inactive Voltaren 1 % topical gel RxNorm: 430619 4 Gram(s) TOP QID 08/1008/09/2016 Inactive promethazine 25 mg tablet RxNorm: 944177 TAKE ONE TABLET BY MOUTH EVERY 8 HOURS NEEDED FOR NAUSEA 07/29/20162017 Inactive nystatin 100,000 unit/gram topical powder RxNorm: 598798 1 Application TOP QID 07/26/2016 08/04/2016 Inactive Levemir FlexTouch U-100 Insulin 100 unit/mL (3 mL) subcutaneous pen RxNorm: 930198 35 Unit(s) SQ BID 07/26/201609/2016 Inactive 35 q am and 30 q pm cyclobenzaprine 10 mg tablet RxNorm: 442690 TAKE ONE TABLET BY MOUTH EVERY 8 HOURS NEEDED 07/14/2016 08/22/2016 Inactive hydrocodone 10 mg-acetaminophen 325 mg tablet RxNorm: 356074 1 Tablet(s) PO Q6 as needed 07/11/2016 08/16/2016 Inactive nystatin 100,000 unit/mL oral suspension RxNorm: 376734 5 Milliliter(s) PO QID x 10 days 07/05/2016 07/04/2016 Inactive nystatin 100,000 unit/mL oral suspension RxNorm: 598120 5 Milliliter(s) PO QID x 10 days 07/05/2016 07/04/2016 Inactive nystatin 100,000 unit/mL oral suspension RxNorm: 140841 5 Milliliter(s) PO QID x 10 days 07/05/2016 07/14/2016 Inactive Swish et swallow doxycycline monohydrate 100 mg tablet RxNorm: 030289 1 Tablet(s) PO BID 06/24/2016 07/03/2016 Inactive give doxycyline hyclate promethazine 25 mg tablet RxNorm: 994849 TAKE ONE TABLET BY MOUTH EVERY 8 HOURS NEEDED FOR NAUSEA 06/01/20162016 Inactive pantoprazole 40 mg tablet,delayed release RxNorm: 069899 1 Tablet(s) PO BID 05/25/2016 08/02/2017 Inactive Zofran 4 mg tablet RxNorm: 529544 1 Tablet(s) PO Q12 PRN TAKE 1 TABLET BY MOUTH EVERY 4 TO 6 HOURS NEEDED 05/24/2016 Inactive hydrocodone 10 mg-acetaminophen 325 mg tablet RxNorm: 809167 1 Tablet(s) PO Q6 as needed 05/24/2016 07/10/2016 Inactive Levemir FlexTouch 100 unit/mL (3 mL) subcutaneous insulin pen RxNorm: 377466 25 Unit(s) SQ BID 05/24/2016 06/22/2016 Inactive Xanax 0.5 mg tablet RxNorm: 061872 Tablet(s) TAKE ONE TABLET BY MOUTH THREE TIMES DAILY 05/11/2016 07/09/2016 Inactive BD Insulin Pen Needle UF Short 31 gauge x 5/16" RxNorm: [facility] 05/06/2016 05/05/2016 Inactive BD Insulin Pen Needle UF Short 31 gauge x 5/16" RxNorm: [facility] 05/06/2016 06/04/2016 Inactive colestipol 1 gram tablet RxNorm: 1669402 Tablet(s) TAKE 1 TABLET BY MOUTH TWICE DAILY 04/22/2016 04/16/2017 Inactive Levemir FlexTouch 100 unit/mL (3 mL) subcutaneous insulin pen RxNorm: 466681 20 Unit(s) SQ BID 04/19/2016 05/18/2016 Inactive 25 UNITS Q AM AND 20 UNITS Q HS Cartia XT 180 mg capsule,extended release RxNorm: 956794 Capsule(s) BID 04/11/2016 04/05/2017 Inactive hydrocodone 10 mg-acetaminophen 325 mg tablet RxNorm: 173102 1 Tablet(s) PO Q6 as needed 04/11/2016 05/23/2016 Inactive Levemir FlexTouch 100 unit/mL (3 mL) subcutaneous insulin pen RxNorm: 172327 20 Unit(s) SQ BID 04/11/2016 04/18/2016 Inactive 20 UNITS Q AM AND 15 UNITS Q HS X 1 WEEK THEN 20 UNITS BID levothyroxine 88 mcg tablet RxNorm: 682063 1 Tablet(s) PO daily 03/21/2016 07/18/2016 Inactive Cymbalta 60 mg capsule,delayed release RxNorm: 229835 1 Capsule(s) PO daily 03/21/2016 07/18/2016 Inactive diltiazem ER (XR/XT) 240 mg capsule,extended release, controlled RxNorm: 692121 1 Capsule(s) PO BID 03/18/20162017 Inactive doxycycline hyclate 100 mg tablet RxNorm: 903048 1 Tablet(s) PO BID 03/11/2016 03/17/2016 Inactive Levemir FlexTouch 100 unit/mL (3 mL) subcutaneous insulin pen RxNorm: 560883 10 Unit(s) SQ BID 03/11/2016 04/09/2016 Inactive Lasix 40 mg tablet RxNorm: 818598 1 Tablet(s) PO BID 201509/06/2016 Inactive gabapentin 600 mg tablet RxNorm: 221541 Tablet(s) 1.5 TABLET(S) PO TID 03/04/2016 08/30/2016 Inactive Toujeo SoloStar 300 unit/mL (1.5 mL) subcutaneous insulin pen RxNorm: 3911451 10 Unit(s) SQ QHS 02/26/2016 03/26/2016 Inactive polymyxin B sulfate 10,000 unit-trimethoprim 1 mg/mL eye drops RxNorm: 714464 2 Drop(s) OPH TID 02/26/2016 03/03/2016 Inactive Lasix 20 mg tablet RxNorm: 687769 2 Tablet(s) PO BID TAKE 2 TABLETS BY MOUTH EVERY MORNING AND 2 TABLET BY MOUTH AT 3 PM 02/26/2016 03/10/2016 Inactive cyclobenzaprine 10 mg tablet RxNorm: 403756 Tablet(s) TABLET(S) TABLET(S) 1 TABLET (S) PO NEEDED TAKE 1 TABLET BY MOUTH EVERY 8 HOURS NEEDED 02/26/2016 07/13/2016 Inactive early fill- pt lost med Levemir FlexTouch 100 unit/mL (3 mL) subcutaneous insulin pen RxNorm: 507581 16 Unit(s) SQ QHS 02/18/2016 02/17/2016 Inactive Levemir FlexTouch 100 unit/mL (3 mL) subcutaneous insulin pen RxNorm: 190187 16 Unit(s) SQ QHS 02/18/2016 02/25/2016 Inactive Levemir 100 unit/mL subcutaneous solution RxNorm: 093305 16 Unit(s) SQ QHS 02/15/2016 02/17/2016 Inactive disp needles as well Effexor XR 37.5 mg capsule,extended release RxNorm: 964656 1 Capsule(s) QPM CAPSULE(S) PO TAKE 2 CAPSULES BY MOUTH EVERY MORNING AND 1 CAPSULE BY MOUTH EVERY NIGHT AT BEDTIME 02/15/20162015 Inactive clotrimazole 100 mg vaginal tablet RxNorm: 840256 1 Tablet(s) VAG QHS 02/05/2016 02/11/2016 Inactive clotrimazole 100 mg vaginal tablet RxNorm: 767306 1 Tablet(s) VAG QHS 02/05/2016 02/04/2016 Inactive hydrocodone 10 mg-acetaminophen 325 mg tablet RxNorm: 269226 1 Tablet(s) PO Q6 as needed 02/05/2016 04/10/2016 Inactive flecainide 100 mg tablet RxNorm: 145105 1 Tablet(s) PO BID No Stop Date Active potassium chloride ER 10 mEq tablet,extended release RxNorm: 290330 1 Tablet(s) PO daily 1 TABLET(S) PO QDAY PRN TAKE WITH LASIX 02/02/2016 01/26/2017 Inactive Brovana 15 mcg/2 mL solution for nebulization RxNorm: 997274 2 Milliliter(s) INH BID PRN 02/02/2016 03/20/2016 Inactive promethazine 25 mg tablet RxNorm: 547556 1 Tablet(s) PO Q8 as needed nausea 01/27/2016 03/20/2016 Inactive promethazine 25 mg tablet RxNorm: 808985 1 Tablet(s) PO Q6 PRN 01/27/2016 02/03/2016 Inactive nystatin 100,000 unit/mL oral suspension RxNorm: 239188 5 Unit(s) PO QID 01/12/2016 05/06/2018 Inactive promethazine 25 mg tablet RxNorm: 388131 1 Tablet(s) PO Q6 PRN 12/30/2015 01/06/2016 Inactive hydrocodone 7.5 mg-acetaminophen 325 mg tablet RxNorm: 995552 1 Tablet(s) PO q 6 hours prn for pain 12/10/2015 01/06/2016 Inactive Xanax 0.5 mg tablet RxNorm: 983744 TAKE ONE TABLET BY MOUTH THREE TIMES DAILY 12/02/2015 12/31/2015 Inactive Xanax 0.5 mg tablet RxNorm: 409642 Tablet(s) TAKE 1 TABLET BY MOUTH THREE TIMES DAILY 12/02/2015 11/30/2015 Inactive Anusol-HC 25 mg rectal suppository RxNorm: 4950152 1 Suppository RTL HS 11/27/2015 09/12/2016 Inactive ropinirole 1 mg tablet RxNorm: 570214 1 Tablet(s) PO QHS 201505/24/2016 Inactive nystatin 100,000 unit/mL oral suspension RxNorm: 149373 5 Unit(s) PO QID 11/20/2015 11/29/2015 Inactive albuterol sulfate concentrate 2.5 mg/0.5 mL solution for nebulization RxNorm: 427698 3 Milliliter(s) INH Q4-6H as needed 11/10/2015 11/02/2016 Inactive doxycycline monohydrate 100 mg tablet RxNorm: 113835 1 Tablet(s) PO BID 11/10/2015 11/19/2015 Inactive give doxycyline hyclate promethazine 25 mg tablet RxNorm: 304326 1 Tablet(s) PO Q6 PRN 11/05/2015 11/12/2015 Inactive Bactroban 2 % topical ointment RxNorm: 766793 1 APPLICATION TOP BID 10/27/2015 10/26/2017 Inactive Belviq 10 mg tablet RxNorm: 0648656 1 Tablet(s) PO BID 201511/25/2015 Inactive hydrocodone 7.5 mg-acetaminophen 325 mg tablet RxNorm: 450110 1 Tablet(s) PO q 6 hours prn for pain 10/20/2015 11/18/2015 Inactive Toprol XL 100 mg tablet,extended release RxNorm: 022346 Tablet(s) TAKE 1 TABLET BY MOUTH TWICE DAILY 10/16/20152016 Inactive Diflucan 150 mg tablet RxNorm: 889688 1 Tablet(s) PO every other day 10/14/2015 10/23/2015 Inactive Xanax 0.5 mg tablet RxNorm: 663462 Tablet(s) TAKE 1 TABLET BY MOUTH THREE TIMES DAILY 10/14/2015 05/10/2016 Inactive Toprol XL 100 mg tablet,extended release RxNorm: 551348 Tablet(s) TAKE 1 TABLET BY MOUTH TWICE DAILY 10/13/20152015 Inactive cyclobenzaprine 10 mg tablet RxNorm: 676051 Tablet(s) TABLET(S) TABLET(S) 1 TABLET (S) PO NEEDED TAKE 1 TABLET BY MOUTH EVERY 8 HOURS NEEDED 10/02/2015 10/14/2015 Inactive Zofran 4 mg tablet RxNorm: 904419 Tablet(s) 1 TABLET(S) PRN TAKE 1 TABLET BY MOUTH EVERY 4 TO 6 HOURS NEEDED 09/29/2015 12/27/2015 Inactive Synthroid 88 mcg tablet RxNorm: 806076 1 Tablet(s) PO daily 1 TABLET(S) PO DAILY 09/29/2015 10/28/2015 Inactive Patient requests 90 days supply promethazine 25 mg tablet RxNorm: 897666 1 Tablet(s) PO Q6 PRN 09/29/2015 11/04/2015 Inactive Lasix 20 mg tablet RxNorm: 179836 2 Tablet(s) PO BID 201501/18/2016 Inactive promethazine 25 mg tablet RxNorm: 028803 1 Tablet(s) PO Q6 PRN 09/22/2015 09/28/2015 Inactive hydrocodone 7.5 mg-acetaminophen 325 mg tablet RxNorm: 185101 1 Tablet(s) PO q 6 hours prn for pain 09/17/2015 10/16/2015 Inactive WelChol 625 mg tablet RxNorm: 458236 3 Tablet(s) PO BID 201503/26/2017 Inactive promethazine 25 mg tablet RxNorm: 991877 1 Tablet(s) PO Q8 as needed 09/07/2015 10/26/2017 Inactive Levemir 100 unit/mL subcutaneous solution RxNorm: 005127 16 Unit(s) SQ QHS 09/01/2015 02/14/2016 Inactive pantoprazole 40 mg tablet,delayed release RxNorm: 546382 1 Tablet(s) PO daily 09/01/2015 05/24/2016 Inactive Effexor XR 37.5 mg capsule,extended release RxNorm: 954909 Capsule(s) CAPSULE(S) PO TAKE 2 CAPSULES BY MOUTH EVERY MORNING AND 1 CAPSULE BY MOUTH EVERY NIGHT AT BEDTIME 08/27/2015 02/14/2016 Inactive promethazine 25 mg tablet RxNorm: 060607 1 Tablet(s) PO Q8 as needed 08/13/2015 09/06/2015 Inactive gabapentin 600 mg tablet RxNorm: 324374 Tablet(s) 1.5 TABLET(S) PO TID 08/13/2015 02/08/2016 Inactive hydrocodone 7.5 mg-acetaminophen 325 mg tablet RxNorm: 853701 1 Tablet(s) PO q 6 hours prn for pain 08/10/2015 09/08/2015 Inactive Zofran 4 mg tablet RxNorm: 541639 Tablet(s) 1 TABLET(S) PRN TAKE 1 TABLET BY MOUTH EVERY 4 TO 6 HOURS NEEDED 08/04/2015 08/03/2015 Inactive Zofran 4 mg tablet RxNorm: 627360 Tablet(s) 1 TABLET(S) PRN TAKE 1 TABLET BY MOUTH EVERY 4 TO 6 HOURS NEEDED 08/04/2015 09/28/2015 Inactive doxycycline monohydrate 100 mg tablet RxNorm: 660906 1 Tablet(s) PO BID 08/04/2015 08/10/2015 Inactive give doxycyline hyclate Diflucan 150 mg tablet RxNorm: 600921 1 Tablet(s) PO every other day 07/31/2015 08/09/2015 Inactive nystatin 100,000 unit/mL oral suspension RxNorm: 775620 5 Milliliter(s) PO QID 07/31/2015 07/30/2015 Inactive Diflucan 150 mg tablet RxNorm: 239857 1 Tablet(s) PO every other day 07/31/2015 07/30/2015 Inactive nystatin 100,000 unit/mL oral suspension RxNorm: 192358 5 Milliliter(s) PO QID 07/31/2015 08/09/2015 Inactive Ceftin 500 mg tablet RxNorm: 319254 1 Tablet(s) PO BID 201507/23/2015 Inactive Ceftin 500 mg tablet RxNorm: 610881 1 Tablet(s) PO BID Pre-medicate with benadryl 50 mg, pepcid 20 mg, and nathanael before each dose 07/24/2015 07/30/2015 Inactive cyclobenzaprine 10 mg tablet RxNorm: 286479 TABLET(S) TABLET(S) 1 TABLET(S) PO NEEDED TAKE 1 TABLET BY MOUTH EVERY 8 HOURS NEEDED 201502/25/2016 Inactive early fill- pt lost med Synthroid 88 mcg tablet RxNorm: 556247 1 TABLET(S) PO DAILY 07/201509/28/2015 Inactive Patient requests 90 days supply cyclobenzaprine 10 mg tablet RxNorm: 045548 Tablet(s) TABLET(S) TABLET(S) 1 TABLET (S) PO NEEDED TAKE 1 TABLET BY MOUTH EVERY 8 HOURS NEEDED 07/23/2015 10/01/2015 Inactive early fill- pt lost med Promethazine VC 6.25 mg-5 mg/5 mL syrup RxNorm: 1313305 1-2 Teaspoon(s) PO Q6 PRN as needed 07/22/2015 03/20/2016 Inactive Diflucan 150 mg tablet RxNorm: 157994 1 Tablet(s) PO daily 06/201507/22/2015 Inactive Lasix 20 mg tablet RxNorm: Tablet(s) TAKE 2 TABLETS BY MOUTH EVERY MORNING AND 2 TABLET BY MOUTH AT 3PM 07/16/2015 09/21/2015 Inactive Toprol XL 100 mg tablet,extended release RxNorm: 513986 Tablet(s) TAKE 1 TABLET BY MOUTH TWICE DAILY 07/16/20152015 Inactive Cartia XT 180 mg capsule,extended release RxNorm: 219841 Capsule(s) 1 CAPSULE(S) PO DAILY TAKE 1 CAPSULE BY MOUTH AT BEDTIME ..TAKE THIS IN ADDITION TO 240 MG IN THE MORNING 07/14/2015 04/10/2016 Inactive diltiazem ER (XR/XT) 240 mg capsule,extended release, controlled RxNorm: 940371 Capsule(s) TAKE 1 CAPSULE BY MOUTH DAILY 07/14/2015 03/17/2016 Inactive gabapentin 600 mg tablet RxNorm: 344600 Tablet(s) 1.5 TABLET(S) PO TID 07/06/2015 08/12/2015 Inactive Phenergan 25 mg tablet RxNorm: 518671 1 Tablet(s) PO Q8 as needed nausea 06/29/2015 01/25/2016 Inactive doxycycline monohydrate 100 mg tablet RxNorm: 210652 1 Tablet(s) PO BID 06/29/2015 06/28/2015 Inactive doxycycline monohydrate 100 mg tablet RxNorm: 093563 1 Tablet(s) PO BID 06/29/2015 07/08/2015 Inactive give doxycyline hyclate doxycycline monohydrate 100 mg tablet RxNorm: 467692 1 Tablet(s) PO BID 06/29/2015 06/28/2015 Inactive Lasix 20 mg tablet RxNorm: Tablet(s) TAKE 2 TABLETS BY MOUTH EVERY MORNING AND 2 TABLET BY MOUTH AT 3PM 06/29/2015 07/15/2015 Inactive Lasix 20 mg tablet RxNorm: Tablet(s) TAKE 2 TABLETS BY MOUTH EVERY MORNING AND 1 TABLET BY MOUTH AT 3PM 06/26/2015 06/28/2015 Inactive Xanax 0.5 mg tablet RxNorm: 835574 Tablet(s) TAKE 1 TABLET BY MOUTH THREE TIMES DAILY 06/26/2015 07/25/2015 Inactive Kenalog 40 mg/mL suspension for injection RxNorm: 4637600 Milliliter(s) Inj 06/26/2015 06/26/2015 Inactive hydrocodone 7.5 mg-acetaminophen 325 mg tablet RxNorm: 417534 1 Tablet(s) PO q 6 hours prn for pain 06/26/2015 07/25/2015 Inactive Dexilant 60 mg capsule, delayed release RxNorm: 049619 1 Capsule(s) PO daily 06/26/2015 08/24/2015 Inactive colestipol 1 gram tablet RxNorm: 5019514 1 TABLET(S) PO BID TAKE 1 TABLET BY MOUTH TWICE DAILY 06/16/2015 03/11/2016 Inactive hydrocodone 7.5 mg-acetaminophen 325 mg tablet RxNorm: 740100 1 Tablet(s) PO q 6 hours prn for pain 06/11/2015 06/25/2015 Inactive cyclobenzaprine 10 mg tablet RxNorm: 093934 TABLET(S) TABLET(S) 1 TABLET(S) PO NEEDED TAKE 1 TABLET BY MOUTH EVERY 8 HOURS NEEDED 201507/22/2015 Inactive early fill- pt lost med Zofran 4 mg tablet RxNorm: 963786 1 TABLET(S) PRN TAKE 1 TABLET BY MOUTH EVERY 4 TO 6 HOURS NEEDED 05/25/20152015 Inactive Zofran 4 mg tablet RxNorm: 847554 1 Tablet(s) PRN TAKE 1 TABLET BY MOUTH EVERY 4 TO 6 HOURS NEEDED 05/19/20152015 Inactive gabapentin 600 mg tablet RxNorm: 297928 1.5 TABLET(S) PO TID 07/05/2015 Inactive Lasix 20 mg tablet RxNorm: 930500 TAKE 2 TABLETS BY MOUTH EVERY MORNING AND 1 TABLET BY MOUTH AT 3PM 05/07/20152015 Inactive Effexor XR 37.5 mg capsule,extended release RxNorm: 125338 Capsule(s) CAPSULE(S) PO TAKE 2 CAPSULES BY MOUTH EVERY MORNING AND 1 CAPSULE BY MOUTH EVERY NIGHT AT BEDTIME 04/15/2015 08/26/2015 Inactive Diflucan 150 mg tablet RxNorm: 425038 1 Tablet(s) PO daily 04/18/2015 Inactive Victoza 3-Babak 0.6 mg/0.1 mL (18 mg/3 mL) subcutaneous pen injector RxNorm: 067317 1.8 Milligram(s) SQ daily 04/14/201508/10 Inactive Levaquin 500 mg tablet RxNorm: 019615 1 Tablet(s) PO daily 04/20/2015 Inactive potassium chloride ER 10 mEq tablet,extended release RxNorm: 469512 1 TABLET(S) PO QDAY PRN TAKE WITH LASIX 04/13/201504/2016 Inactive Effexor XR 37.5 mg capsule,extended release RxNorm: 704550 CAPSULE(S) PO TAKE 2 CAPSULES BY MOUTH EVERY MORNING AND 1 CAPSULE BY MOUTH EVERY NIGHT AT BEDTIME 04/10/2015 04/14/2015 Inactive pantoprazole 40 mg tablet,delayed release RxNorm: 259843 1 Tablet(s) PO daily 03/31/2015 08/31/2015 Inactive Dexilant 60 mg capsule, delayed release RxNorm: 101028 1 Capsule(s) PO daily 03/31/2015 03/31/2015 Inactive pantoprazole 40 mg tablet,delayed release RxNorm: 568864 1 Tablet(s) PO daily 03/31/2015 03/30/2015 Inactive Dexilant 60 mg capsule, delayed release RxNorm: 125457 1 Capsule(s) PO daily 03/31/2015 05/29/2015 Inactive Dexilant 60 mg capsule, delayed release RxNorm: 836493 1 Capsule(s) PO daily 03/30/2015 03/30/2015 Inactive hydrocodone 7.5 mg-acetaminophen 325 mg tablet RxNorm: 695431 1 Tablet(s) PO q 6 hours prn for pain 03/30/2015 04/28/2015 Inactive cyclobenzaprine 10 mg tablet RxNorm: 465056 TABLET(S) TABLET(S) 1 TABLET(S) PO NEEDED TAKE 1 TABLET BY MOUTH EVERY 8 HOURS NEEDED 201405/31/2015 Inactive early fill- pt lost med Xanax 0.5 mg tablet RxNorm: 866803 Tablet(s) TAKE 1 TABLET BY MOUTH THREE TIMES DAILY 03/25/2015 04/23/2015 Inactive Lasix 20 mg tablet RxNorm: 830745 TAKE 2 TABLETS BY MOUTH EVERY MORNING AND 1 TABLET BY MOUTH AT 3PM 03/23/20152014 Inactive Levemir Flexpen 100 unit/mL (3 mL) solution subcutaneous insulin pen RxNorm: 974126 15 Unit(s) SQ BID 03/20/20152015 Inactive give quanity sufficient for 1 month- Dexilant 60 mg capsule, delayed release RxNorm: 235188 1 Capsule(s) PO daily 03/19/2015 03/29/2015 Inactive Dexilant 60 mg capsule, delayed release RxNorm: 819900 1 Capsule(s) PO daily 03/19/2015 03/18/2015 Inactive Diflucan 150 mg tablet RxNorm: 008409 1 Tablet(s) PO every other day x7 doses 03/19/2015 03/21/2015 Inactive hydrocodone 7.5 mg-acetaminophen 325 mg tablet RxNorm: 243721 1 Tablet(s) PO q 6 hours prn for pain 02/27/2015 03/28/2015 Inactive Lasix 20 mg tablet RxNorm: 801646 TAKE 2 TABLETS BY MOUTH EVERY MORNING AND 1 TABLET BY MOUTH AT 3PM 02/27/20152014 Inactive omeprazole 20 mg capsule,delayed release RxNorm: 306251 1 CAPSULE(S) PO DAILY TAKE 1 CAPSULE BY MOUTH TWICE DAILY 02/26/2015 10/26/2017 Inactive Zofran 4 mg tablet RxNorm: 957324 1 Tablet(s) PRN TAKE 1 TABLET BY MOUTH EVERY 4 TO 6 HOURS NEEDED 02/24/20152014 Inactive fluconazole 150 mg tablet RxNorm: 047172 1 Tablet(s) PO every other day x 5 doses 02/19/2015 02/28/2015 Inactive cyclobenzaprine 10 mg tablet RxNorm: 606000 TABLET(S) TABLET(S) 1 TABLET(S) PO NEEDED TAKE 1 TABLET BY MOUTH EVERY 8 HOURS NEEDED 201403/29/2015 Inactive early fill- pt lost med hydrocodone 7.5 mg-acetaminophen 325 mg tablet RxNorm: 878267 1 Tablet(s) PO q 6 hours prn for pain 01/29/2015 02/26/2015 Inactive Xanax 0.5 mg tablet RxNorm: 327614 Tablet(s) TAKE 1 TABLET BY MOUTH THREE TIMES DAILY 01/29/2015 02/27/2015 Inactive Bactroban 2 % topical ointment RxNorm: 409273 1 APPLICATION TOP BID 01/26/2015 10/26/2015 Inactive Bactroban 2 % topical ointment RxNorm: 208967 1 Application TOP BID 01/15/2015 01/25/2015 Inactive doxycycline hyclate 100 mg tablet RxNorm: 915670 1 Tablet(s) PO BID 01/15/2015 01/21/2015 Inactive nystatin 100,000 unit/mL oral suspension RxNorm: 383948 5 Milliliter(s) PO QID 01/15/2015 01/24/2015 Inactive Cartia XT 180 mg capsule,extended release RxNorm: 020485 1 CAPSULE(S) PO DAILY TAKE 1 CAPSULE BY MOUTH AT BEDTIME ..TAKE THIS IN ADDITION TO 240 MG IN THE MORNING 01/13/2015 07/13/2015 Inactive Lasix 20 mg tablet RxNorm: 247639 TAKE 2 TABLETS BY MOUTH EVERY MORNING AND 1 TABLET BY MOUTH AT 3PM 01/08/20152014 Inactive fluconazole 150 mg tablet RxNorm: 854673 1 Tablet(s) PO daily 01/01/2015 01/05/2015 Inactive hydrocodone 7.5 mg-acetaminophen 325 mg tablet RxNorm: 064276 1 Tablet(s) PO q 6 hours prn for pain 01/01/2015 01/28/2015 Inactive colestipol 1 gram tablet RxNorm: 9192006 1 TABLET(S) PO BID TAKE 1 TABLET BY MOUTH TWICE DAILY 12/18/2014 06/15/2015 Inactive colestipol 1 gram tablet RxNorm: 3216967 1 TABLET(S) PO BID TAKE 1 TABLET BY MOUTH TWICE DAILY 12/18/2014 09/13/2015 Inactive Lasix 20 mg tablet RxNorm: 875983 TAKE 2 TABLETS BY MOUTH EVERY MORNING AND 2 TABLETS AND AT 3PM 12/11/2014 12/25/2014 Inactive cyclobenzaprine 10 mg tablet RxNorm: 156654 TABLET(S) 1 TABLET(S) PO NEEDED TAKE 1 TABLET BY MOUTH EVERY 8 HOURS NEEDED 12/11/2014 05/31/2017 Inactive Lasix 20 mg tablet RxNorm: 345958 Tablet(s) TABLET(S) PO TAKE 2 TABLETS BY MOUTH EVERY MORNING AND 1 TABLET BY MOUTH AT 3 PM 12/10/2014 12/10/2014 Inactive fill early- pt lost them cyclobenzaprine 10 mg tablet RxNorm: 725061 Tablet(s) TABLET(S) 1 TABLET(S) PO NEEDED TAKE 1 TABLET BY MOUTH EVERY 8 HOURS NEEDED 201402/15/2015 Inactive early fill- pt lost med cyclobenzaprine 10 mg tablet RxNorm: 029491 TABLET(S) 1 TABLET(S) PO NEEDED TAKE 1 TABLET BY MOUTH EVERY 8 HOURS NEEDED 12/02/2014 12/09/2014 Inactive hydrocodone 7.5 mg-acetaminophen 325 mg tablet RxNorm: 819861 1 Tablet(s) PO q 6 hours prn for pain 12/01/2014 12/30/2014 Inactive diltiazem ER (XR/XT) 240 mg capsule,extended release, controlled RxNorm: 742849 TAKE 1 CAPSULE BY MOUTH DAILY 11/30/2014 07/13/2015 Inactive Xanax 0.5 mg tablet RxNorm: 989807 1 Tablet(s) PO TID PRN as needed 11/19/2014 11/19/2014 Inactive (Appended: Controlled substance eRx refill - RxReferenceNumber: [id number]|1|0|1) Xanax 0.5 mg tablet RxNorm: 467953 TAKE 1 TABLET BY MOUTH THREE TIMES DAILY 11/19/2014 12/18/2014 Inactive Toprol XL 100 mg tablet,extended release RxNorm: 286116 TAKE 1 TABLET BY MOUTH TWICE DAILY 11/06/2014 07/15/2015 Inactive Diflucan 150 mg tablet RxNorm: 265997 1 Tablet(s) PO every other day x7 doses 11/05/2014 11/07/2014 Inactive omeprazole 20 mg capsule,delayed release RxNorm: 386832 1 Capsule(s) PO daily TAKE 1 CAPSULE BY MOUTH TWICE DAILY 11/04/2014 02/01/2015 Inactive cyclobenzaprine 10 mg tablet RxNorm: 910498 TABLET(S) 1 TABLET(S) PO NEEDED TAKE 1 TABLET BY MOUTH EVERY 8 HOURS NEEDED 10/28/2014 12/01/2014 Inactive hydrocodone 7.5 mg-acetaminophen 325 mg tablet RxNorm: 272924 1 Tablet(s) PO q 6 hours prn for pain 10/21/2014 11/19/2014 Inactive gabapentin 600 mg tablet RxNorm: 826633 1.5 Tablet(s) PO TID 04/30/2015 Inactive Xanax 0.5 mg tablet RxNorm: 597934 Tablet(s) TAKE 1 TABLET BY MOUTH THREE TIMES DAILY 10/01/2014 10/30/2014 Inactive (Response to an electronic controlled substance refill request - RxReferenceNumber: [id number]|1|0|1) Xanax 0.25 mg tablet RxNorm: 722032 1 Tablet(s) PO Q8 PRN as needed 09/30/2014 09/30/2014 Inactive Lasix 20 mg tablet RxNorm: Tablet(s) TAKE 2 TABLETS BY MOUTH EVERY MORNING AND 2 TABLETS BY MOUTH AT 3 PM 09/30/2014 11/12/2014 Inactive Victoza 3-Babak 0.6 mg/0.1 mL (18 mg/3 mL) subcutaneous pen injector RxNorm: 269605 1.2 MILLIGRAM(S) SQ DAILY 0.6 X 2 WEEKS THEN INCREASE TO 1.2MG DAILY 09/26/2014 04/13/2015 Inactive Xanax 0.5 mg tablet RxNorm: 945644 TAKE 1 TABLET BY MOUTH THREE TIMES DAILY 09/25/2014 09/30/2014 Inactive (Response to an electronic controlled substance refill request - RxReferenceNumber: [id number]|1|0|1) Zofran 4 mg tablet RxNorm: 176954 TAKE 1 TABLET BY MOUTH EVERY 4 TO 6 HOURS NEEDED 09/25/2014 09/27/2014 Inactive hydrocodone 7.5 mg-acetaminophen 325 mg tablet RxNorm: 822407 1 Tablet(s) PO q 6 hours prn for pain 09/19/2014 10/18/2014 Inactive cyclobenzaprine 10 mg tablet RxNorm: 397770 TABLET(S) 1 TABLET(S) PO NEEDED TAKE 1 TABLET BY MOUTH EVERY 8 HOURS NEEDED 09/15/2014 10/27/2014 Inactive Lasix 20 mg tablet RxNorm: Tablet(s) TAKE 2 TABLETS BY MOUTH EVERY MORNING AND 2 TABLETS BY MOUTH AT 3 PM 09/08/2014 09/29/2014 Inactive Lasix 20 mg tablet RxNorm: TAKE 2 TABLETS BY MOUTH EVERY MORNING AND 2 TABLETS BY MOUTH AT 3 PM 08/21/20142014 Inactive hydrocodone 7.5 mg-acetaminophen 325 mg tablet RxNorm: 044811 1 Tablet(s) PO q 6 hours prn for pain 08/21/2014 09/18/2014 Inactive Diflucan 150 mg tablet RxNorm: 626791 1 Tablet(s) PO every other day 08/15/2014 08/17/2014 Inactive cyclobenzaprine 10 mg tablet RxNorm: 720909 Tablet(s) 1 TABLET(S) PO NEEDED TAKE 1 TABLET BY MOUTH EVERY 8 HOURS NEEDED 08/12/2014 09/14/2014 Inactive Zofran 4 mg tablet RxNorm: 067757 TAKE 1 TABLET BY MOUTH EVERY 4 TO 6 HOURS NEEDED 07/31/2014 08/02/2014 Inactive Effexor XR 37.5 mg capsule,extended release RxNorm: 441551 CAPSULE(S) PO TAKE 2 CAPSULES BY MOUTH EVERY MORNING AND 1 CAPSULE BY MOUTH EVERY NIGHT AT BEDTIME 07/28/2014 02/15/2016 Inactive Lasix 20 mg tablet RxNorm: 060832 TAKE 2 TABLETS BY MOUTH EVERY MORNING AND 2 TABLETS BY MOUTH AT 3 PM 07/22/20142014 Inactive Diflucan 150 mg tablet RxNorm: 822565 1 Tablet(s) PO daily 06/201407/23/2014 Inactive hydrocodone 7.5 mg-acetaminophen 325 mg tablet RxNorm: 279674 1 Tablet(s) PO q 6 hours prn for pain 07/14/2014 08/12/2014 Inactive Synthroid 88 mcg tablet RxNorm: 311239 1 TABLET(S) PO DAILY 10/11/2014 Inactive Effexor XR 37.5 mg capsule,extended release RxNorm: 035245 Capsule(s) PO TAKE 2 CAPSULES BY MOUTH EVERY MORNING AND 1 CAPSULE BY MOUTH EVERY NIGHT AT BEDTIME 07/07/2014 04/09/2015 Inactive Effexor XR 37.5 mg capsule,extended release RxNorm: 077575 TAKE 2 CAPSULES BY MOUTH EVERY MORNING AND 1 CAPSULE BY MOUTH EVERY NIGHT AT BEDTIME 07/07/2014 01/02/2015 Inactive WelChol 625 mg tablet RxNorm: 048015 3 TABLET(S) PO BID 201410/04/2014 Inactive WelChol 625 mg tablet RxNorm: 359022 3 Tablet(s) PO BID 201402/01/2015 Inactive Zofran 4 mg tablet RxNorm: 306656 TAKE 1 TABLET BY MOUTH EVERY 4 TO 6 HOURS NEEDED 07/03/2014 07/05/2014 Inactive Lasix 20 mg tablet RxNorm: 043393 TAKE 2 TABLETS BY MOUTH EVERY MORNING AND 2 TABLETS BY MOUTH AT 3 PM 06/26/20142014 Inactive Diflucan 150 mg tablet RxNorm: 424815 1 Tablet(s) PO daily 06/19/2014 Inactive Promethazine VC 6.25 mg-5 mg/5 mL syrup RxNorm: 4185458 1-2 Teaspoon(s) PO Q6 PRN as needed 06/12/2014 07/21/2015 Inactive hydrocodone 7.5 mg-acetaminophen 325 mg tablet RxNorm: 689710 1 Tablet(s) PO q 6 hours prn for pain 06/03/2014 07/02/2014 Inactive Levaquin 500 mg tablet RxNorm: 127557 1 Tablet(s) PO daily 01/201506/05/2014 Inactive cyclobenzaprine 10 mg tablet RxNorm: 185457 Tablet(s) 1 TABLET(S) PO NEEDED TAKE 1 TABLET BY MOUTH EVERY 8 HOURS NEEDED 05/26/2014 No Stop Date Active cyclobenzaprine 10 mg tablet RxNorm: 362253 1 TABLET(S) PO NEEDED TAKE 1 TABLET BY MOUTH EVERY 8 HOURS NEEDED 05/26/2014 08/11/2014 Inactive Lasix 20 mg tablet RxNorm: 423505 Tablet(s) TABLET(S) PO TAKE 2 TABLETS BY MOUTH EVERY MORNING AND 2 TABLET BY MOUTH AT 3 PM 05/12/2014 06/25/2014 Inactive Combivent Respimat 20 mcg-100 mcg/actuation solution for inhalation RxNorm: 5311077 INHALE 1 PUFF BY MOUTH FOUR TIMES DAILY 05/12/2014 11/07/2014 Inactive fluconazole 150 mg tablet RxNorm: 259444 1 Tablet(s) PO UD 05/12/2014 Inactive 1 tab every other day x 5 doses Activella 0.5 mg-0.1 mg tablet RxNorm: 4354536 1 TABLET(S) PO DAILY TAKE 1 TABLET BY MOUTH DAILY FOR MENOPAUSAL SYMPTOM 05/02/2014 09/21/2015 Inactive hydrocodone 7.5 mg-acetaminophen 300 mg tablet RxNorm: 336888 Tablet(s) PO TAKE 1 TABLET BY MOUTH EVERY 6 HOURS NEEDED FOR PAIN 04/21/2014 06/03/2014 Inactive ( Appended: Controlled substance eRx refill - RxReferenceNumber: [id number]|1|0|1 ) Levaquin 500 mg tablet RxNorm: 479884 1 Tablet(s) PO daily 04/21/2014 Inactive Diflucan 150 mg tablet RxNorm: 376814 1 Tablet(s) PO every other day x 4 doses 04/10/2014 06/16/2014 Inactive Lasix 20 mg tablet RxNorm: 047890 TAKE 2 TABLETS BY MOUTH EVERY MORNING AND 1 TABLET BY MOUTH AT 3 PM 04/10/20142013 Inactive potassium chloride ER 10 mEq tablet,extended release RxNorm: 809691 1 TABLET(S) PO QDAY PRN TAKE WITH LASIX 04/09/2014 Inactive Levaquin 250 mg tablet RxNorm: 562541 1 Tablet(s) PO daily 08/201304/07/2014 Inactive 2 tabs today then 1 tab daily until gone atorvastatin 40 mg tablet RxNorm: 003209 1 Tablet(s) daily 1 TABLET(S) PO DAILY 03/25/2014 04/10/2016 Inactive TAKE 1 TABLET BY MOUTH DAILY (THIS IS AN INCREASE IN DOSAGE) Zofran 4 mg tablet RxNorm: 069460 1 Tablet(s) PO Q4-6H 201307/02/2014 Inactive Xanax 0.5 mg tablet RxNorm: 697326 TAKE 1 TABLET BY MOUTH THREE TIMES DAILY NEEDED 03/19/2014 04/17/2014 Inactive (Response to an electronic controlled substance refill request - RxReferenceNumber: [id number]|1|0|1) hydrocodone 7.5 mg-acetaminophen 300 mg tablet RxNorm: 792014 Tablet(s) PO TAKE 1 TABLET BY MOUTH EVERY 6 HOURS NEEDED FOR PAIN 03/19/2014 04/20/2014 Inactive ( Appended: Controlled substance eRx refill - RxReferenceNumber: [id number]|1|0|1 ) atorvastatin 40 mg tablet RxNorm: 264831 1 TABLET(S) PO DAILY 03/10/2014 03/24/2014 Inactive TAKE 1 TABLET BY MOUTH DAILY (THIS IS AN INCREASE IN DOSAGE) WelChol 625 mg tablet RxNorm: 050580 3 Tablet(s) PO BID 201303/06/2014 Inactive WelChol 625 mg tablet RxNorm: 707816 3 Tablet(s) PO BID 201307/04/2014 Inactive Lasix 20 mg tablet RxNorm: 981783 Tablet(s) TABLET(S) PO TAKE 2 TABLETS BY MOUTH EVERY MORNING AND 2 TABLET BY MOUTH AT 3 PM 03/03/2014 05/11/2014 Inactive Lasix 20 mg tablet RxNorm: 087913 TABLET(S) PO TAKE 2 TABLETS BY MOUTH EVERY MORNING AND 1 TABLET BY MOUTH AT 3 PM 02/20/2014 03/02/2014 Inactive gabapentin 600 mg tablet RxNorm: 193264 1.5 Tablet(s) PO TID 09/16/2014 Inactive Synthroid 88 mcg tablet RxNorm: 621256 1 TABLET(S) PO DAILY 05/18/2014 Inactive cyclobenzaprine 10 mg tablet RxNorm: 956601 1 TABLET(S) PO NEEDED TAKE 1 TABLET BY MOUTH EVERY 8 HOURS NEEDED 02/18/2014 05/25/2014 Inactive doxycycline hyclate 100 mg tablet RxNorm: 186202 1 Tablet(s) PO BID 02/13/2014 02/22/2014 Inactive Bactroban 2 % topical ointment RxNorm: 621113 1 Application TOP BID 02/13/2014 03/12/2014 Inactive Victoza 3-Babak 0.6 mg/0.1 mL (18 mg/3 mL) subcutaneous pen injector RxNorm: 421242 1.2 MILLIGRAM(S) SQ DAILY 0.6 X 2 WEEKS THEN INCREASE TO 1.2MG DAILY 02/10/2014 05/10/2014 Inactive albuterol sulfate 1.25 mg/3 mL solution for nebulization RxNorm: 738839 3 MILLILITER(S) INH TID 02/07/20142014 Inactive 1 box Victoza 3-Babak 0.6 mg/0.1 mL (18 mg/3 mL) subcutaneous pen injector RxNorm: 249340 1.8 Milligram(s) SQ daily 0.6 x 2 weeks then increase to 1.2mg daily 01/27/2014 05/26/2014 Inactive Levemir Flexpen 100 unit/mL (3 mL) solution subcutaneous insulin pen RxNorm: 070617 5units sq at hs, increase by 3 Unit(s) SQ at hs every 3days, goal FSBS 170 or less, do not increase above 20units, call doctor with report 01/27/2014 05/26/2014 Inactive hydrocodone 7.5 mg-acetaminophen 300 mg tablet RxNorm: 846346 Tablet(s) PO TAKE 1 TABLET BY MOUTH EVERY 6 HOURS NEEDED FOR PAIN 01/24/2014 03/18/2014 Inactive ( Appended: Controlled substance eRx refill - RxReferenceNumber: [id number]|1|0|1 ) Xanax 0.5 mg tablet RxNorm: 984829 1 Tablet(s) PO TID PRN as needed 01/24/2014 09/21/2014 Inactive (Appended: Controlled substance eRx refill - RxReferenceNumber: [id number]|1|0|1) Xanax 0.5 mg tablet RxNorm: 816688 TAKE 1 TABLET BY MOUTH THREE TIMES DAILY NEEDED 01/23/2014 02/21/2014 Inactive (Response to an electronic controlled substance refill request - RxReferenceNumber: [id number]|1|0|1) hydrocodone 5 mg-acetaminophen 325 mg tablet RxNorm: 545596 TAKE 1 TABLET BY MOUTH EVERY 6 HOURS NEEDED FOR PAIN 01/21/2014 02/19/2014 Inactive (Response to an electronic controlled substance refill request - RxReferenceNumber: [id number]| [id number]|1|0|1) Lasix 20 mg tablet RxNorm: 965081 TAKE 2 TABLETS BY MOUTH EVERY MORNING AND 1 TABLET BY MOUTH AT 3 PM 01/17/20142013 Inactive cyclobenzaprine 10 mg tablet RxNorm: 438137 1 Tablet(s) PO as needed TAKE 1 TABLET BY MOUTH EVERY 8 HOURS NEEDED 01/13/2014 02/17/2014 Inactive Anusol-HC 25 mg suppository RxNorm: 5057086 1 SUPPOSITORY RTL PRN ONE PER RECTUM NEEDED, UP TO TWICE DAILY FOR HEMORRHOID, NO MORE THAN 7 DAYS IN A ROW 01/10/2014 02/06/2014 Inactive Activella 0.5 mg-0.1 mg tablet RxNorm: 3299236 1 Tablet(s) PO daily TAKE 1 TABLET BY MOUTH DAILY FOR MENOPAUSAL SYMPTOM 01/08/2014 05/01/2014 Inactive gabapentin 600 mg tablet RxNorm: 162395 1.5 Tablet(s) PO TID 02/18/2014 Inactive gabapentin 600 mg tablet RxNorm: 724184 1.5 Tablet(s) PO TID 01/01/2014 Inactive hydrocodone 7.5 mg-acetaminophen 300 mg tablet RxNorm: 970890 Tablet(s) PO TAKE 1 TABLET BY MOUTH EVERY 6 HOURS NEEDED FOR PAIN 12/12/2013 01/23/2014 Inactive ( Appended: Controlled substance eRx refill - RxReferenceNumber: [id number]|1|0|1 ) Levaquin 250 mg tablet RxNorm: 553034 1 Tablet(s) PO daily 12/18/2013 Inactive 2 tabs today then 1 tab daily until gone Diflucan 150 mg tablet RxNorm: 490495 1 Tablet(s) PO daily 12/16/2013 Inactive do not stat until levaquin is completed Cartia XT 180 mg capsule,extended release RxNorm: 884772 1 CAPSULE(S) PO DAILY TAKE 1 CAPSULE BY MOUTH AT BEDTIME ..TAKE THIS IN ADDITION TO 240 MG IN THE MORNING 12/12/2013 12/06/2014 Inactive diltiazem ER (XR/XT) 240 mg capsule,extended release, controlled RxNorm: 165279 1 Capsule(s) PO daily TAKE 1 CAPSULE BY MOUTH EVERY DAY 11/28/2014 Inactive Effexor XR 37.5 mg capsule,extended release RxNorm: 543526 Capsule(s) PO TAKE 2 CAPSULES BY MOUTH EVERY MORNING AND 1 CAPSULE BY MOUTH EVERY NIGHT AT BEDTIME 12/04/2013 07/06/2014 Inactive Lasix 20 mg tablet RxNorm: 559445 TABLET(S) PO TAKE 2 TABLETS BY MOUTH EVERY MORNING AND 1 TABLET BY MOUTH AT 3 PM 12/04/2013 12/09/2014 Inactive Voltaren 1 % topical gel RxNorm: 942173 4 Gram(s) TOP QID 11/2703/26/2014 Inactive Cartia XT 180 mg capsule,extended release RxNorm: 738768 1 Capsule(s) PO daily TAKE 1 CAPSULE BY MOUTH AT BEDTIME ..TAKE THIS IN ADDITION TO 240 MG IN THE MORNING 11/27/2013 01/12/2015 Inactive Lasix 20 mg tablet RxNorm: 266290 TABLET(S) PO TAKE 2 TABLETS BY MOUTH EVERY MORNING AND 1 TABLET BY MOUTH AT 3 PM 11/26/2013 02/19/2014 Inactive colestipol 1 gram tablet RxNorm: 4409000 1 Tablet(s) PO BID TAKE 1 TABLET BY MOUTH TWICE DAILY 11/26/2013 11/20/2014 Inactive cyclobenzaprine 10 mg tablet RxNorm: 094933 Tablet(s) PO TAKE 1 TABLET BY MOUTH EVERY 8 HOURS NEEDED 11/21/20132013 Inactive Diflucan 150 mg tablet RxNorm: 513891 1 Tablet(s) PO daily TAKE 1 TABLET BY MOUTH EVERY OTHER DAY FOR 8 DOSES 11/14/201306/2013 Inactive peak flow meter-inh assist dev kit RxNorm: 1 dose Miscellaneous PRN 11/14/2013 10/27/2017 Inactive Effexor XR 37.5 mg capsule,extended release RxNorm: 680976 Capsule(s) PO TAKE 2 CAPSULES BY MOUTH EVERY MORNING AND 1 CAPSULE BY MOUTH EVERY NIGHT AT BEDTIME 11/04/2013 12/03/2013 Inactive Anusol-HC 25 mg suppository RxNorm: 3595990 1 Suppository RTL PRN one per rectum as needed, up to twice daily for hemorrhoid, no more than 7 days in a row 10/23/2013 10/22/2013 Inactive Anusol-HC 25 mg suppository RxNorm: 0132165 1 Suppository RTL PRN one per rectum as needed, up to twice daily for hemorrhoid, no more than 7 days in a row 10/23/2013 01/09/2014 Inactive Activella 0.5 mg-0.1 mg tablet RxNorm: 0357064 Tablet(s) PO TAKE 1 TABLET BY MOUTH DAILY FOR MENOPAUSAL SYMPTOM 10/21/2013 01/07/2014 Inactive cyclobenzaprine 10 mg tablet RxNorm: 013037 Tablet(s) PO TAKE 1 TABLET BY MOUTH EVERY 8 HOURS NEEDED 10/21/20132013 Inactive Lasix 20 mg tablet RxNorm: Tablet(s) PO TAKE 2 TABLETS BY MOUTH EVERY MORNING AND 1 TABLET BY MOUTH AT 3 PM 10/17/2013 02/25/2016 Inactive Bactroban 2 % topical ointment RxNorm: 722618 1 Application TOP BID 10/10/2013 11/06/2013 Inactive Zofran 4 mg tablet RxNorm: 479230 1 Tablet(s) PO Q4-6H 201303/20/2014 Inactive Bactroban 2 % topical ointment RxNorm: 605158 1 Application TOP BID 09/27/2013 10/09/2013 Inactive hydrocodone 5 mg-acetaminophen 325 mg tablet RxNorm: 705713 Tablet(s) PO TAKE 1 TABLET BY MOUTH EVERY 6 HOURS NEEDED FOR PAIN 09/26/2013 12/11/2013 Inactive ( Appended: Controlled substance eRx refill - RxReferenceNumber: [id number]|1|0|1 ) hydrocodone 5 mg-acetaminophen 325 mg tablet RxNorm: 279342 1 Tablet(s) PO Q6 PRN 09/26/2013 01/24/2014 Inactive cyclobenzaprine 10 mg tablet RxNorm: 443046 Tablet(s) PO TAKE 1 TABLET BY MOUTH EVERY 8 HOURS NEEDED 09/16/2013 No Stop Date Active omeprazole 20 mg capsule,delayed release RxNorm: 949422 Capsule(s) PO TAKE 1 CAPSULE BY MOUTH TWICE DAILY 09/02/2013 Inactive Lasix 20 mg tablet RxNorm: Tablet(s) PO TAKE 2 TABLETS BY MOUTH EVERY MORNING AND 1 TABLET BY MOUTH AT 3 PM 09/02/2013 04/10/2016 Inactive Diflucan 150 mg tablet RxNorm: 119926 Tablet(s) PO TAKE 1 TABLET BY MOUTH EVERY OTHER DAY FOR 8 DOSES 08/29/20132013 Inactive Effexor XR 37.5 mg capsule,extended release RxNorm: 401562 Capsule(s) PO TAKE 2 CAPSULES BY MOUTH EVERY MORNING AND 1 CAPSULE BY MOUTH EVERY NIGHT AT BEDTIME 08/29/2013 11/03/2013 Inactive diltiazem ER (XR/XT) 240 mg capsule,extended release, controlled RxNorm: 706654 Capsule(s) PO TAKE 1 CAPSULE BY MOUTH EVERY DAY 201312/03/2013 Inactive Xanax 0.5 mg tablet RxNorm: 471167 1 Tablet(s) PO TID PRN 11/2013 No Stop Date Active (Appended: Controlled substance eRx refill - RxReferenceNumber: [id number]| [id number]|1|0|1) colestipol 1 gram tablet RxNorm: 9274740 Tablet(s) PO TAKE 1 TABLET BY MOUTH TWICE DAILY 08/26/2013 11/25/2013 Inactive Victoza 3-Babak 0.6 mg/0.1 mL (18 mg/3 mL) subcutaneous pen injector RxNorm: 266278 1.2 Milligram(s) SQ daily 0.6 x 2 weeks then increase to 1.2mg daily 08/19/2013 12/16/2013 Inactive Synthroid 88 mcg tablet RxNorm: 573375 1 Tablet(s) PO daily 12/09/2013 Inactive Lasix 20 mg tablet RxNorm: Tablet(s) PO TAKE 2 TABLETS BY MOUTH EVERY MORNING AND 2 TABLETS BY MOUTH AT 3 PM 08/12/2013 10/18/2016 Inactive Xanax 0.5 mg tablet RxNorm: 068834 1 Tablet(s) PO TID PRN No Stop Date Active (Appended: Controlled substance eRx refill - RxReferenceNumber: [id number]| [id number]|1|0|1) Lasix 20 mg tablet RxNorm: Tablet(s) PO TAKE 2 TABLETS BY MOUTH EVERY MORNING AND 1 TABLET BY MOUTH AT 3 PM 08/07/2013 08/11/2013 Inactive Voltaren 1 % topical gel RxNorm: 629616 4 Gram(s) TOP QID 08/0111/26/2013 Inactive Zyvox 600 mg tablet RxNorm: 899179 1 Tablet(s) PO BID 201307/27/2013 Inactive please call the office is this is too expensive for the pt Zyvox 600 mg tablet RxNorm: 536809 1 Tablet(s) PO BID 201307/17/2013 Inactive hydrocodone 5 mg-acetaminophen 325 mg tablet RxNorm: 2064597 1 Tablet(s) PO Q6 PRN 07/15/2013 09/26/2013 Inactive Zofran 4 mg tablet RxNorm: 644919 1 Tablet(s) PO Q4-6H 201310/02/2013 Inactive Lasix 20 mg tablet RxNorm: 357258 Tablet(s) PO TAKE 2 TABLETS BY MOUTH EVERY MORNING AND 1 TABLET BY MOUTH AT 3 PM 07/11/2013 10/18/2016 Inactive cyclobenzaprine 10 mg tablet RxNorm: 241505 1 Tablet(s) PO Q8 PRN 06/27/2013 08/25/2013 Inactive gabapentin 600 mg tablet RxNorm: 967535 1.5 Tablet(s) PO TID 01/02/2014 Inactive Lasix 20 mg tablet RxNorm: 795175 Tablet(s) PO TAKE 2 TABLETS BY MOUTH EVERY MORNING AND 1 TABLET BY MOUTH AT 3 PM 06/17/2013 07/10/2013 Inactive hydrocodone 5 mg-acetaminophen 325 mg tablet RxNorm: 187777 1 Tablet(s) PO Q6 PRN 06/10/2013 07/14/2013 Inactive hydrocortisone 2.5 % rectal cream RxNorm: 451133 1 Suppository RTL BID PRN 06/10/2013 06/29/2013 Inactive Flexeril 10 mg tablet RxNorm: 533620 1 Tablet(s) PO Q8 PRN 06/0406/26/2013 Inactive diltiazem ER (XR/XT) 240 mg capsule,extended release, controlled RxNorm: 686026 Capsule(s) PO TAKE 1 CAPSULE BY MOUTH EVERY DAY 201310/26/2017 Inactive omeprazole 20 mg capsule,delayed release RxNorm: 711969 Capsule(s) PO TAKE 1 CAPSULE BY MOUTH TWICE DAILY 05/24/2013 Inactive colestipol 1 gram tablet RxNorm: 2106667 Tablet(s) PO TAKE 1 TABLET BY MOUTH TWICE DAILY 05/23/2013 04/21/2016 Inactive Januvia 100 mg tablet RxNorm: 484758 1 Tablet(s) PO daily 201308/18/2013 Inactive Activella 0.5 mg-0.1 mg tablet RxNorm: 463659 Tablet(s) PO TAKE 1 TABLET BY MOUTH DAILY FOR MENOPAUSAL SYMPTOM 05/17/2013 Inactive Xanax 0.5 mg tablet RxNorm: 875095 1 Tablet(s) PO TID PRN 08/06/2013 Inactive (Appended: Controlled substance eRx refill - RxReferenceNumber: [id number]| [id number]|1|0|1) Kenalog 40 mg/mL suspension for injection RxNorm: 3688384 Milliliter(s) Inj 05/07/2013 05/07/2013 Inactive levofloxacin 500 mg tablet RxNorm: 576155 1 Tablet(s) PO daily pt to take 500mg on day#1, 3, 5, 7 and 1/2 tablet on days 2, 4, 6, and 8 05/0705/14/2013 Inactive Lyrica 50 mg capsule RxNorm: 449394 1 Capsule(s) PO TID 201206/26/2013 Inactive hydrocodone 5 mg-acetaminophen 500 mg tablet RxNorm: 789301 1 Tablet(s) PO Q6 PRN 04/22/2013 06/09/2013 Inactive Zofran 4 mg tablet RxNorm: 254966 1 Tablet(s) PO Q4-6H 201207/14/2013 Inactive Zofran 4 mg tablet RxNorm: 396987 1 Tablet(s) PO Q6 PRN 04/0404/08/2013 Inactive hydrocodone 5 mg-acetaminophen 500 mg tablet RxNorm: 573923 1 Tablet(s) PO Q6 PRN 03/21/2013 04/21/2013 Inactive Diflucan 150 mg tablet RxNorm: 564543 1 Tablet(s) PO every other day 1 pill po every other day x 8 doses 03/19/201306/26 Inactive potassium chloride ER 10 mEq tablet,extended release RxNorm: 127807 1 Tablet(s) PO QDAY PRN take with lasix 03/07/201302/2014 Inactive potassium chloride ER 10 mEq tablet,extended release RxNorm: 598524 1 Tablet(s) PO QDAY PRN take with lasix 03/04/2013 Inactive fluconazole 150 mg tablet RxNorm: 235597 1 Tablet(s) PO daily 03/01/2013 02/28/2013 Inactive fluconazole 150 mg tablet RxNorm: 117190 1 Tablet(s) PO daily 03/01/2013 03/05/2013 Inactive Combivent 18 mcg-103 mcg/actuation Aerosol Inhaler RxNorm: 125430 2 Puff(s) INH QID 02/12/2013 02/12/2013 Inactive Zofran 4 mg tablet RxNorm: 611011 1 Tablet(s) PO Q6 PRN 02/1104/03/2013 Inactive Lasix 20 mg tablet RxNorm: 418798 1 Tablet(s) PO BID one pill in morning and one pill in afternoon (3pm) 02/04/2013 Inactive Xopenex HFA 45 mcg/actuation Aerosol Inhaler RxNorm: 190553 2 INH QID 01/29/2013 09/21/2015 Inactive Effexor XR 37.5 mg capsule,extended release RxNorm: 267546 2 q am and 1 at hs Capsule(s) PO TAKE 2 CAPSULES BY MOUTH EVERY MORNING AND 1 CAPSULE EVERY NIGHT AT BEDTIME 01/29/2013 02/15/2016 Inactive fluconazole 150 mg tablet RxNorm: 801084 1 Tablet(s) PO daily 01/29/2013 02/02/2013 Inactive hydrocodone 5 mg-acetaminophen 500 mg tablet RxNorm: 839157 1 Tablet(s) PO Q6 PRN 01/29/2013 03/20/2013 Inactive Effexor XR 37.5 mg capsule,extended release RxNorm: 638898 Capsule(s) PO 01/29/2013 08/28/2013 Inactive TAKE 2 CAPSULES BY MOUTH EVERY MORNING AND 1 CAPSULE EVERY NIGHT AT BEDTIME doxycycline hyclate 100 mg tablet RxNorm: 468569 1 Tablet(s) PO BID 01/01/2013 01/10/2013 Inactive doxycycline hyclate 100 mg tablet RxNorm: 715201 1 Tablet(s) PO BID 01/01/2013 12/31/2012 Inactive Synthroid 75 mcg tablet RxNorm: 192447 1 Tablet(s) PO daily 06/29/2013 Inactive Synthroid 75 mcg tablet RxNorm: 596842 1 Tablet(s) PO daily 12/31/2012 Inactive Xanax 0.5 mg tablet RxNorm: 432659 Tablet(s) PO TAKE 1/2 TO 1 TABLET BY MOUTH EVERY 8 HOURS NEEDED FOR ANXIETY 12/27/2012 05/06/2013 Inactive (Appended: Controlled substance [facility] [id number]|1|0|1) Lasix 20 mg tablet RxNorm: 328827 1 Tablet(s) PO daily 201202/03/2013 Inactive Santyl 250 unit/gram Topical Ointment RxNorm: 8626082 1 Application TOP daily 12/20/2012 12/29/2012 Inactive Levaquin 500 mg tablet RxNorm: 033465 1 Tablet(s) PO daily 05/201212/26/2012 Inactive acyclovir 400 mg tablet RxNorm: 471456 1 Tablet(s) PO TID 12/0312/09/2012 Inactive acyclovir 400 mg tablet RxNorm: 873773 1 Tablet(s) PO TID 12/0312/02/2012 Inactive fluconazole 150 mg tablet RxNorm: 196837 1 Tablet(s) PO daily 11/26/2012 11/30/2012 Inactive Effexor XR 37.5 mg capsule,extended release RxNorm: 753940 Capsule(s) PO TAKE 2 CAPSULES BY MOUTH EVERY MORNING AND 1 CAPSULE EVERY NIGHT AT BEDTIME 11/14/2012 01/28/2013 Inactive albuterol sulfate 1.25 mg/3 mL solution for nebulization RxNorm: 289275 3 Milliliter(s) INH TID 10/29/20122012 Inactive 1 box Cartia XT 180 mg capsule,extended release RxNorm: 956206 1 Capsule(s) PO daily TAKE 1 CAPSULE BY MOUTH AT BEDTIME ..TAKE THIS IN ADDITION TO 240 MG IN THE MORNING 10/29/2012 11/26/2013 Inactive acyclovir 800 mg tablet RxNorm: 262291 1 Tablet(s) PO BID 10/2911/04/2012 Inactive Diflucan 150 mg tablet RxNorm: 583421 1 Tablet(s) PO daily 10/14/2012 Inactive TAKE 1 TABLET BY MOUTH EVERY DAY Toprol XL 100 mg tablet,extended release RxNorm: 804351 1 Tablet(s) PO BID 10/11/2012 09/05/2013 Inactive Zithromax Z-Babak 250 mg tablet RxNorm: 432241 Tablet(s) PO UD as directed. 1 refill , please take back to back 10/05/2012 No Stop Date Active Kenalog 40 mg/mL Susp for Injection RxNorm: 2387203 1 Milliliter(s) Inj QID 09/21/2012 05/07/2013 Inactive fluconazole 150 mg tablet RxNorm: 353457 1 Tablet(s) PO every other day x 5 doses 09/12/2012 11/25/2012 Inactive levothyroxine 50 mcg tablet RxNorm: 267310 1 Tablet(s) PO daily 09/06/2012 12/31/2012 Inactive atorvastatin 40 mg tablet RxNorm: 151792 1 Tablet(s) PO daily 09/06/2012 08/31/2013 Inactive TAKE 1 TABLET BY MOUTH DAILY (THIS IS AN INCREASE IN DOSAGE) Xanax 0.5 mg tablet RxNorm: 677309 Tablet(s) PO TAKE 1/2 TO 1 TABLET BY MOUTH EVERY 8 HOURS NEEDED FOR ANXIETY 08/27/2012 12/26/2012 Inactive (Appended: Controlled substance eRx refill - RxReferenceNumber: [id number]|1|0|1) Zofran 4 mg tablet RxNorm: 964336 1 Tablet(s) PO Q6 PRN 08/1302/10/2013 Inactive Cipro 500 mg tablet RxNorm: 292774 1 Tablet(s) PO BID 201208/07/2012 Inactive Cipro 500 mg tablet RxNorm: 917824 1 Tablet(s) PO BID 201208/12/2012 Inactive Flagyl 500 mg tablet RxNorm: 302965 1 Tablet(s) PO TID 201208/12/2012 Inactive cefdinir 300 mg capsule RxNorm: 790142 1 Capsule(s) PO BID 08/201207/29/2012 Inactive nystatin 100,000 unit/mL Oral Susp RxNorm: 313110 6 Unit(s) PO QID 07/06/2012 07/15/2012 Inactive Kenalog 40 mg/mL Susp for Injection RxNorm: 7066704 1 Milliliter(s) Inj 07/06/2012 07/06/2012 Inactive Zithromax 500 mg tablet RxNorm: 5562972 1 Tablet(s) PO daily 07/10/2012 Inactive metformin 850 mg tablet RxNorm: 039269 1/2 Tablet(s) PO TID 09/201208/24/2012 Inactive TAKE 1 TABLET BY MOUTH IN THE MORNING, 1/2 TABLET AT NOON, AND 1 TABLET IN THE EVENING Lyrica 50 mg capsule RxNorm: 335178 1 Capsule(s) PO TID 201206/25/2012 Inactive Diflucan 150 mg tablet RxNorm: 914587 1 Tablet(s) PO daily 05/201206/25/2012 Inactive TAKE 1 TABLET BY MOUTH EVERY DAY Levaquin 500 mg tablet RxNorm: 463262 1 Tablet(s) PO daily 06/19/2012 Inactive Pneumovax 23 25 mcg/0.5 mL Injection RxNorm: 240311 1/2 Milliliter(s) Inj 06/07/2012 06/07/2012 Inactive metformin 850 mg tablet RxNorm: 394388 1/2 Tablet(s) PO BID 06/25/2012 Inactive TAKE 1 TABLET BY MOUTH IN THE MORNING, 1/2 TABLET AT NOON, AND 1 TABLET IN THE EVENING cefdinir 300 mg capsule RxNorm: 058797 1 Capsule(s) PO BID 02/201305/30/2012 Inactive cefdinir 300 mg capsule RxNorm: 939631 1 Capsule(s) PO BID 02/201306/06/2012 Inactive prednisone 10 mg tablets in a dose pack RxNorm: 091155 Tablet(s) PO UD 6-5-4-3-2- 1 05/31/2012 05/06/2013 Inactive Cipro 500 mg tablet RxNorm: 804211 1 Tablet(s) PO BID 201206/03/2012 Inactive Xanax 0.5 mg tablet RxNorm: 644236 Tablet(s) PO TAKE 1/2 TO 1 TABLET BY MOUTH EVERY 8 HOURS NEEDED FOR ANXIETY 05/28/2012 08/27/2012 Inactive (Appended: Controlled substance eRx refill - RxReferenceNumber: [id number]|0|1) Cartia XT 180 mg capsule,extended release RxNorm: 166881 Capsule(s) PO TAKE 1 CAPSULE BY MOUTH AT BEDTIME ..TAKE THIS IN ADDITION TO 240 MG IN THE MORNING 05/24/2012 10/28/2012 Inactive Diflucan 150 mg tablet RxNorm: 015359 1 Tablet(s) PO daily 06/201205/26/2012 Inactive TAKE 1 TABLET BY MOUTH EVERY DAY Cartia XT 240 mg capsule,extended release RxNorm: 401849 1 Capsule(s) PO QAM 05/23/2012 09/06/2012 Inactive in addition to 180mg q pm omeprazole 20 mg capsule,delayed release RxNorm: 721857 Capsule(s) PO TAKE 1 CAPSULE BY MOUTH TWICE DAILY 05/21/2012 Inactive diltiazem ER (XR/XT) 240 mg capsule,extended release, controlled RxNorm: 181053 1 Capsule(s) PO daily TAKE ONE CAPSULE BY MOUTH EVERY DAY 05/21/2012 05/30/2013 Inactive Toprol XL 25 mg tablet,extended release RxNorm: 562106 1 Tablet(s) PO QPM take with 50mg (1/2 tab of 100mg) each evening. Continue 100mg in the morning. 05/17/2012 05/27/2012 Inactive Activella 0.5 mg-0.1 mg tablet RxNorm: 4710790 Tablet(s) PO TAKE 1 TABLET BY MOUTH DAILY FOR MENOPAUSAL SYMPTOM 05/09/2012 05/16/2013 Inactive colestipol 1 gram tablet RxNorm: 4109394 Tablet(s) PO TAKE 1 TABLET BY MOUTH TWICE DAILY 05/08/2012 04/21/2016 Inactive Kenalog 40 mg/mL Susp for Injection RxNorm: 4732197 1 Milliliter(s) Inj 05/02/2012 05/02/2012 Inactive Xanax 0.5 mg tablet RxNorm: 896228 Tablet(s) PO 04/16/2012 05/28/2012 Inactive TAKE 1/2 TO 1 TABLET BY MOUTH EVERY 8 HOURS NEEDED FOR ANXIETY (Appended: Controlled substance eRx refill - RxReferenceNumber: [id number]|1|0|1) Diflucan 150 mg tablet RxNorm: 065303 1 Tablet(s) PO daily 05/22/2012 Inactive TAKE 1 TABLET BY MOUTH EVERY DAY Cipro 500 mg tablet RxNorm: 681569 1 Tablet(s) PO BID 201104/19/2012 Inactive Zithromax Z-Babak 250 mg tablet RxNorm: 277978 Tablet(s) PO UD 05/30/2012 Inactive metformin 850 mg tablet RxNorm: 727159 Tablet(s) PO take one pill by mouth in AM, 1/2 at noon, and 1 pill in the evening. 03/16/2012 06/06/2012 Inactive TAKE 1 TABLET BY MOUTH IN THE MORNING, 1/2 TABLET AT NOON, AND 1 TABLET IN THE EVENING Xanax 0.5 mg tablet RxNorm: 580813 Tablet(s) PO 03/05/2012 04/15/2012 Inactive TAKE 1/2 TO 1 TABLET BY MOUTH EVERY 8 HOURS NEEDED FOR ANXIETY (Appended: Controlled substance eRx refill - RxReferenceNumber: [id number]|1|0|1) potassium chloride ER 10 mEq tablet,extended release RxNorm: 021557 1 Tablet(s) PO QDAY PRN take with lasix 03/05/201204/2013 Inactive potassium chloride ER 10 mEq tablet,extended release RxNorm: 472576 1 Tablet(s) PO QDAY PRN take with lasix 02/28/2012 Inactive Lasix 20 mg tablet RxNorm: 481724 Tablet(s) PO QDAY PRN 02/2708/25/2012 Inactive doxycycline hyclate 100 mg capsule RxNorm: 679788 1 Capsule(s) PO BID 02/27/2012 03/04/2012 Inactive Effexor XR 37.5 mg capsule,extended release RxNorm: 154148 Capsule(s) PO 02/26/2012 01/28/2013 Inactive TAKE 2 CAPSULES BY MOUTH EVERY MORNING AND 1 CAPSULE EVERY NIGHT AT BEDTIME Lomotil 2.5 mg-0.025 mg tablet RxNorm: 3502017 Tablet(s) PO 07/201103/05/2012 Inactive 1 after each loose bm limit 4 per day doxycycline hyclate 100 mg capsule RxNorm: 287489 1 Capsule(s) PO BID 02/15/2012 02/21/2012 Inactive Diflucan 150 mg tablet RxNorm: 801616 Tablet(s) PO daily 201102/21/2012 Inactive TAKE 1 TABLET BY MOUTH EVERY DAY colestipol,micronized 1 gram tablet RxNorm: 7706140 Tablet(s) PO 02/06/2012 04/21/2016 Inactive TAKE 1 TABLET BY MOUTH TWICE DAILY Effexor XR 37.5 mg capsule,extended release RxNorm: 261532 Capsule(s) PO 02/06/2012 02/16/2016 Inactive TAKE 2 CAPSULES BY MOUTH EVERY MORNING AND 1 CAPSULE EVERY NIGHT AT BEDTIME potassium chloride ER 10 mEq tablet,extended release RxNorm: 244723 1 Tablet(s) PO QDAY PRN take with lasix 02/01/201212/2011 Inactive Levaquin 500 mg tablet RxNorm: 359444 1 Tablet(s) PO daily 04/201202/07/2012 Inactive Diflucan 150 mg tablet RxNorm: 261567 Tablet(s) PO 01/27/2012 02/14/2012 Inactive TAKE 1 TABLET BY MOUTH EVERY DAY Effexor XR 37.5 mg capsule,extended release RxNorm: 082966 Capsule(s) PO 01/05/2012 02/05/2012 Inactive TAKE 2 CAPSULES BY MOUTH EVERY MORNING , AND 1 CAPSULE BY MOUTH EVERY NIGHT AT BEDTIME Effexor XR 37.5 mg capsule,extended release RxNorm: 024703 Capsule(s) PO 12/29/2011 01/04/2012 Inactive TAKE 2 CAPSULES BY MOUTH EVERY MORNING , AND 1 CAPSULE BY MOUTH EVERY NIGHT AT BEDTIME Diflucan 150 mg tablet RxNorm: 220324 Tablet(s) PO 12/29/2011 04/09/2012 Inactive TAKE 1 TABLET BY MOUTH EVERY DAY Cipro 500 mg tablet RxNorm: 319768 1 Tablet(s) PO BID 201101/07/2012 Inactive Toprol XL 100 mg tablet,extended release RxNorm: 198472 Tablet(s) PO as doctor directed one tab in am and 1/2 at night 11/30/2011 10/10/2012 Inactive Phenergan 25 mg/mL Injection RxNorm: 905109 Milliliter(s) Inj 11/30/2011 11/30/2011 Inactive Toprol XL 100 mg 24 hr Tab RxNorm: 549842 1.5 Tablet(s) PO as doctor directed one tab in am and 1/2 at night 11/17/201102/2012 Inactive Xopenex HFA 45 mcg/actuation Aerosol Inhaler RxNorm: 396839 2 INH QID 11/08/2011 12/01/2012 Inactive Effexor XR 150 mg 24 hr Cap RxNorm: 438342 1 Capsule(s) PO daily 10/24/2011 01/04/2012 Inactive Xanax 0.5 mg tablet RxNorm: 669860 1/2-1 Tablet(s) PO Q8 PRN 10/20/2011 03/05/2012 Inactive levothyroxine 25 mcg tablet RxNorm: 497503 Tablet(s) PO 201109/05/2012 Inactive TAKE 1 TABLET BY MOUTH DAILY Xanax 0.5 mg Tab RxNorm: 779013 1/2-1 Tablet(s) PO Q8 PRN 09/26/2011 10/19/2011 Inactive potassium chloride ER 10 mEq Tab RxNorm: 004800 1 Tablet(s) PO daily 09/20/2011 09/24/2011 Inactive Lasix 20 mg Tab RxNorm : 164489 1 Tablet(s) PO daily 09/20/2011 09/24/2011 Inactive Xanax 0.5 mg Tab RxNorm: 613358 1/2-1 Tablet(s) PO Q8 PRN 09/12/2011 09/25/2011 Inactive Xanax 0.5 mg Tab RxNorm: 315216 1/2-1 Tablet(s) PO Q8 PRN 08/24/2011 09/11/2011 Inactive Lipitor 20 mg tablet RxNorm: 863706 Tablet(s) PO 08/22/2011 09/05/2012 Inactive TAKE 1 TABLET BY MOUTH DAILY (THIS IS AN INCREASE IN DOSAGE) Cipro 500 mg Tab RxNorm: 944500 1 Tablet(s) PO BID 201110/24/2011 Inactive Flagyl 500 mg Tab RxNorm: 944984 1 Tablet(s) PO TID 201110/24/2011 Inactive Diflucan 150 mg Tab RxNorm: 656973 1 Tablet(s) PO daily 201110/24/2011 Inactive Kenalog 40 mg/mL Susp for Injection RxNorm: 0480324 1 Milliliter(s) Inj 08/01/2011 10/24/2011 Inactive FreeStyle Lancets RxNorm: 1 test Miscellaneous TID 201107/08/2014 Inactive dispense quantity sufficient for three times daily testing for diabetes FreeStyle Test strips RxNorm: 1 Miscellaneous BID 07/21/2011 08/13/2012 Inactive please give lancets alsodx 250.02 Xanax 0.25 mg Tab RxNorm: 090911 1 Tablet(s) PO Q8 PRN 07/06 No Stop Date Active colestipol 1 gram Tab RxNorm: 9878322 Tablet(s) PO 07/04/2011 04/21/2016 Inactive TAKE 1 TABLET BY MOUTH TWICE DAILY DIRECTED colestipol 1 gram tablet RxNorm: 1150491 1 Tablet(s) PO BID 07/03/2011 Inactive Cartia XT 180 mg capsule,extended release RxNorm: 343083 1 Capsule(s) PO QHS 06/30/2011 11/16/2011 Inactive in addition to 240mg q am venlafaxine 37.5 mg Tab RxNorm: 370381 1 Tablet(s) PO BID 06/2406/29/2011 Inactive prednisone 5 mg Tab RxNorm: 964260 Tablet(s) PO UD 2011 10/24/2011 Inactive six day taper #21 Lyrica 50 mg capsule RxNorm: 876468 1 Capsule(s) PO TID 201108/18/2011 Inactive Diflucan 150 mg tablet RxNorm: 183196 1 Tablet(s) PO daily 06/24/2011 Inactive levofloxacin 500 mg Tab RxNorm: 935137 1 Tablet(s) PO daily 08/15/2011 Inactive azithromycin 250 mg Tab RxNorm: 222652 PO 05/23/2011 06/20/2011 Inactive omeprazole 20 mg capsule,delayed release RxNorm: 848407 Capsule(s) PO 05/10/2011 05/20/2012 Inactive TAKE 1 CAPSULE BY MOUTH TWICE DAILY;Patient requests 90 day supply diltiazem ER (XR/XT) 240 mg capsule,extended release, controlled RxNorm: 384443 Capsule(s) PO 04/19/2011 05/21/2012 Inactive TAKE 1 CAPSULE BY MOUTH EVERY MORNING;Patient requests 90 day supply Kenalog 40 mg/mL Susp for Injection RxNorm: 0468193 1 Milliliter(s) Inj 04/18/2011 06/20/2011 Inactive clindamycin 300 mg Cap RxNorm: 032882 1 Capsule(s) PO BID 04/1806/20/2011 Inactive lisinopril-hydrochlorothiazide 20 mg-12.5 mg Tab RxNorm: 402433 2 Tablet(s) PO daily 04/18/2011 10/24/2011 Inactive fluconazole 150 mg Tab RxNorm: 199341 1 Tablet(s) PO daily 07/201006/20/2011 Inactive Activella 0.5 mg-0.1 mg tablet RxNorm: 4729996 Tablet(s) PO 05/201005/08/2012 Inactive TAKE 1 TABLET BY MOUTH DAILY FOR MENOPAUSAL SYMPTOM diltiazem ER (XR/XT) 240 mg Continuous Release Cap RxNorm: 977736 1 Capsule(s) PO daily 03/17/2011 03/16/2011 Inactive diltiazem ER (XR/XT) 240 mg Continuous Release Cap RxNorm: 309669 Capsule(s) PO 03/17/2011 06/20/2011 Inactive TAKE 1 CAPSULE BY MOUTH EVERY MORNING metformin 850 mg tablet RxNorm: 147951 1 Tablet(s) PO as doctor directed take one pill by mouth in AM, 1/2 at noon, and 1 pill in the evening. 01/21/2011 04/20/2011 Inactive Xopenex 1.25 mg/3 mL solution for nebulization RxNorm: 534168 3 Milliliter(s) INH Q6 PRN No Start Date Active Lomotil 2.5 mg-0.025 mg tablet RxNorm: 9308707 Tablet(s) PO No Start Date 02/21/2012 Inactive 1 after each loose bm limit 4 per day Novolog Flexpen U-100 Insulin aspart 100 unit/mL subcutaneous RxNorm: 6603040 10 Unit(s) SQ AC No Start Date 10/26 Inactive with sliding scale-Dr Yanna Judd FlexTouch U-100 100 unit/mL (3 mL) subcutaneous insulin pen RxNorm: 6465233 40 Unit(s) SQ daily No Start Date Inactive gabapentin 600 mg tablet RxNorm: 775397 1 Tablet(s) PO TID No Start Date 06/26/2013 Inactive Effexor XR 37.5 mg capsule,extended release RxNorm: 654103 1 Capsule(s) PO BID No Start Date 10/23/2011 Inactive Levemir FlexTouch 100 unit/mL (3 mL) subcutaneous insulin pen RxNorm: 881839 50 Unit(s) SQ BID No Start Date 04/24/2017 Inactive Combivent Respimat 20 mcg-100 mcg/actuation solution for inhalation RxNorm: 9987565 1 INH QID No Start Date 05/11/2014 Inactive Xanax 0.5 mg Tab RxNorm: 708974 1/2-1 Tablet(s) PO Q8 PRN No Start Date 08/23/2011 Inactive Xopenex HFA 45 mcg/actuation Aerosol Inhaler RxNorm: 623166 2 INH QID No Start Date 11/07/2011 Inactive promethazine 25 mg tablet RxNorm: 683594 1 Tablet(s) PO Q8 as needed No Start Date 08/12/2015 Inactive colestipol 1 gram Tab RxNorm: 3264844 1 Tablet(s) PO BID No Start Date 07/03/2011 Inactive Cartia XT 240 mg capsule,extended release RxNorm: 898198 1 Capsule(s) PO QAM No Start Date 05/22/2012 Inactive in addition to 180mg q pm Lipitor 20 mg Tab RxNorm: 990163 1 Tablet(s) PO daily No Start Date 08/21/2011 Inactive FreeStyle Test Strips RxNorm: 1 Miscellaneous BID No Start Date 07/20/2011 Inactive Toujeo SoloStar U-300 Insulin 300 unit/mL (1.5 mL) subcutaneous pen RxNorm: 1165101 40 Unit(s) SQ BID No Start Date 10/26/2017 Inactive Diflucan 150 mg tablet RxNorm: 032976 1 Tablet(s) PO daily 1 pill po every other day x 8 doses No Start Date 03/18/2013 Inactive hydrocodone 5 mg-acetaminophen 500 mg tablet RxNorm: 628493 1 Tablet(s) PO Q6 PRN No Start Date 01/28/2013 Inactive Lasix 20 mg tablet RxNorm: 037464 Tablet(s) PO QDAY PRN No Start Date 02/27/2012 Inactive Promethazine VC 6.25 mg-5 mg/5 mL Syrup RxNorm: 3661382 1-2 PO Q6 PRN No Start Date 10/07/2013 Inactive promethazine 25 mg tablet RxNorm: 134639 1 Tablet(s) PO Q6 PRN No Start Date 02/09/2017 Inactive digoxin 125 mcg tablet RxNorm: 266881 1 Tablet(s) PO daily No Start Date 06/20/2017 Inactive Xanax 0.25 mg Tab RxNorm: 209774 1 Tablet(s) PO Q8 PRN No Start Date 07/05/2011 Inactive Diflucan 150 mg tablet RxNorm: 066424 1 Tablet(s) PO every other day x 4 doses No Start Date 04/09/2014 Inactive Carafate 100 mg/mL Oral Susp RxNorm: 535005 2 Teaspoon(s) PO daily No Start Date 10/24/2011 Inactive prednisone 5 mg Tab RxNorm: 905682 Tablet(s) PO UD No Start Date 06/22/2011 Inactive six day taper #21 Tessalon Perles 100 mg capsule RxNorm: 641250 2 Capsule(s) PO TID as needed No Start Date 05/16/2017 Inactive Bactroban 2 % topical ointment RxNorm: 223299 1 Application TOP BID No Start Date 09/26/2013 Inactive Phenergan 25 mg tablet RxNorm: 723006 1 Tablet(s) PO Q8 as needed nausea No Start Date 06/28/2015 Inactive flecainide 50 mg tablet RxNorm: 874598 1 Tablet(s) PO BID No Start Date 02/01/2016 Inactive Activella 0.5 mg-0.1 mg Tab RxNorm: 4825924 1 Tablet(s) PO daily No Start Date 03/21/2011 Inactive hydrocodone 10 mg-acetaminophen 325 mg tablet RxNorm: 067943 1 Tablet(s) PO Q6 as needed No Start Date 02/04/2016 Inactive lisinopril 20 mg Tab RxNorm: 462972 1 Tablet(s) PO daily No Start Date 06/20/2011 Inactive prednisone 10 mg tablets in a dose pack RxNorm: 636611 Tablet(s) PO UD 6-5-4-3-2- 1 No Start Date 05/30/2012 Inactive hydrocodone 7.5 mg-acetaminophen 325 mg tablet RxNorm: 438935 1 Tablet(s) PO Q6 PRN No Start Date 10/06/2013 Inactive hyoscyamine 0.125 mg sublingual tablet RxNorm: 7862980 1 Tablet(s) SL TID as needed No Start Date 05/16/2017 Inactive Cartia XT 180 mg 24 hr Cap RxNorm: 412447 1 Capsule(s) PO QHS No Start Date 06/29/2011 Inactive in addition to 240mg q am Zofran 4 mg tablet RxNorm: 382543 1 Tablet(s) PO Q6 PRN No Start Date 08/12/2012 Inactive omeprazole 20 mg Cap, Delayed Release RxNorm: 310350 1 Capsule(s) PO BID No Start Date 05/09/2011 Inactive venlafaxine 37.5 mg Tab RxNorm: 219485 1 Tablet(s) PO BID No Start Date 10/24/2011 Inactive Novolog Flexpen U-100 Insulin aspart 100 unit/mL subcutaneous RxNorm: 7393629 10 units with meals plus SSI in [...] 8u 301-325 Vesicare 10 mg tablet RxNorm: 161858 1 Tablet(s) PO daily No Start Date 09/28/2015 Inactive levothyroxine 25 mcg Tab RxNorm: 669003 1 Tablet(s) PO daily No Start Date 10/18/2011 Inactive Zithromax Z-Babak 250 mg tablet RxNorm: 876818 Tablet(s) PO UD No Start Date 04/01/2012 Inactive Januvia 100 mg tablet RxNorm: 514397 1 Tablet(s) PO daily No Start Date 05/22/2013 Inactive Lantus Solostar 100 unit/mL (3 mL) subcutaneous insulin pen RxNorm: 965874 Unit( s) SQ No Start Date 04/17/2017 Inactive 10 units q am and 50units at night fluconazole 150 mg tablet RxNorm: 647206 1 Tablet(s) PO every other day x 5 doses No Start Date 09/11/2012 Inactive Toprol XL 25 mg 24 hr Tab RxNorm: 823021 1 Tablet(s) PO daily No Start Date 11/16/2011 Inactive Medication Administered Medication Codes Instructions Start Date Status Kenalog 40 mg/mL suspension for injection RxNorm: 6998182 Milliliter 06/26/2015 No longer Active Kenalog 40 mg/mL suspension for injection RxNorm: 5142049 Milliliter 05/07/2013 No longer Active Kenalog 40 mg/mL Susp for Injection RxNorm: 7958762 1Milliliter 07/06/2012 No longer Active Pneumovax 23 25 mcg/0.5 mL Injection RxNorm: 333160 1/2Milliliter 06/07/2012 No longer Active Kenalog 40 mg/mL Susp for Injection RxNorm: 2660125 1Milliliter 05/02/2012 No longer Active Phenergan 25 mg/mL Injection RxNorm: 375143 Milliliter 11/30/2011 No longer Active Immunizations Vaccine Codes Date Status Pneumococcal (Adult) CVX: 133 02/26/2016 completed PPD Unknown 12/25/2014 completed PPD Unknown 09/27/2013 completed Pneumococcal CVX: 33 06/07/2012 completed Pneumococcal (Adult) CVX: 33 06/07/2012 completed Assessments Condition Codes Effective Dates Essential (primary) hypertension ICD-10: I10 ICD-9: 401.1 05/16/2018 Generalized anxiety disorder ICD-10: F41.1 ICD-9: 300.00 05/16/2018 Chronic maxillary sinusitis ICD-10: J32.0 ICD-9: 473.0 04/27/2018 Type 2 diabetes mellitus with hyperglycemia ICD-10: E11.65 ICD-9: 250.00 04/27/2018 Cough ICD-10: R05 ICD-9: 786.2 04/27/2018 Weakness ICD-10: R53.1 ICD-9: 780.79 04/10/2018 Generalized anxiety disorder ICD-10: F41.1 ICD-9: 300.02 04/10/2018 Low back pain ICD-10: M54.5 ICD-9: 724.2 03/12/2018 Anemia, unspecified ICD-10: D64.9 ICD-9: 285.9 02/22/2018 Dysuria ICD-10: R30.0 ICD-9: 788.1 02/20/2018 Vitamin D deficiency, unspecified ICD-10: E55.9 ICD-9: 268.9 02/20/2018 Encounter for general adult medical examination [...] on feet ICD-10: R26.81 ICD-9: 781.2 04/18/2017 Essential (primary) hypertension ICD-10: I10 ICD-9: 401.9 04/18/2017 Cellulitis of abdominal wall ICD-10: L03.311 ICD-9: 682.2 04/18/2017 Hypokalemia ICD-10: E87.6 ICD-9: 276.8 03/27/2017 [...] right knee ICD-10: M25.561 ICD-9: 719.46 10/13/2016 Acute recurrent maxillary sinusitis ICD-10: J01.01 ICD-9: 461.0 09/23/2016 Allergic rhinitis due to pollen ICD-10: J30.1 ICD-9: 477.0 09/23/2016 Cervicalgia ICD-10: M54.2 ICD-9: 723.1 09/13/2016 [...] for immunization ICD-10: Z23 ICD-9: V03.82 02/26/2016 Other conjunctivitis ICD-10: H10.89 ICD-9: 372.33 02/26/2016 VAC STREP PNEUMONIAE-FLU ICD-10: Z23 ICD-9: V06.6 02/26/2016 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 ICD-9: 255.41 12/17/2015 Headache ICD-10: R51 ICD-9: 784.0 12/17/2015 Pleurodynia ICD-10: R07.81 ICD-9: 786.50 12/08/2015 Syncope and collapse ICD-10: R55 ICD-9: 780.2 12/08/2015 Addisonian crisis ICD-10: E27.2 ICD-9: 255.41 11/12/2015 Other acute sinusitis ICD-10: J01.80 ICD-9: 461.9 11/10/2015 Acute bronchitis due to other specified organisms ICD-10: J20.8 ICD-9: 466.0 11/10/2015 Other malaise ICD-10: R53.81 ICD-9: 780.79 11/10/2015 Pain in left knee ICD-10: M25.562 ICD-9: 719.46 10/27/2015 Cellulitis of right toe ICD-10: L03.031 ICD-9: 681.10 10/27/2015 Body mass index (BMI) 40.0-44.9, adult [...] 789.00 02/12/2013 RESPIRATORY ABNORM NEC ICD-9: 786.09 Callus ICD-9: 700 12/31/2012 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 2012 Diarrhea ICD-9: 787.91 08/23/2012 Gastroenteritis ICD-9: 558.9 08/13/2012 Acute sinusitis ICD-9: 461.9 07/06/2012 Thrush ICD-9: 112.0 07/06/2012 VAC STREP PNEUMONIAE-FLU ICD-9: V06.6 Labial cyst ICD-9: 624.8 05/28/2012 Foreign body in foot or toe ICD-9: 917.6 02/27/2012 CELLULITIS OF FOOT ICD-9: 682.7 2011 Diverticulitis ICD-9: 562.11 12/14/2011 Trigger point of extremity ICD-9: 729.5 12/14/2011 Nausea vomiting and diarrhea ICD-9: 787.01 11/30/2011 Chronic depression ICD-9: 311 11/03/2011 FALL AGAINST OBJECT ICD-9: E888.1 2011 ANXIETY STATE ICD-9: 300.00 11/03/2011 Tachycardia ICD-9: 785.0 11/03/2011 Ulcer of toe ICD-9: 707.15 10/24/2011 Anxiety, generalized ICD-9: 300.02 2011 Dehydration ICD-9: 276.51 08/09/2011 Yeast infection ICD-9: 112.9 08/01/2011 Fibromyalgia ICD-9: 729.1 06/20/2011 ACUTE MAXILLARY SINUSITIS ICD-9: 461.0 Reason For Visit Reason For Visit Effective Dates Notes cough 05/16/2018 diabetes mellitus 04/27/2018 diabetes mellitus [...] Item Code Result Date Urine Culture Ucult Complete NO Growth Day 2 02/22/2018 Urine Culture Ucult Preliminary NO Growth Day 1 02/22/2018 Tibc Ord40 Iron 62 ug/dl 02/21/2018 Tibc Ord40 UIBC 449 ug/dL 02/21/2018 Tibc Ord40 TIBC 511 ug/dL 02/21/2018 Tibc Ord40 Fe-%Sat 12.1 % 02/21/2018 Ferritin Ord22 FERRITIN 14.9 ng/mL 02/21/2018 Cbc With Differential Ord2 WBC 8.62 K/ul 02/20/2018 Cbc With Differential Ord2 RBC 4.08 M/ul 02/20/2018 Cbc With Differential Ord2 HGB 10.7 g/dl 02/20/2018 Cbc With Differential Ord2 HCT 35.6 % 02/20/2018 Cbc With Differential Ord2 Neut% 74.4 % 02/20/2018 Cbc With Differential Ord2 MCV 87.3 fl 02/20/2018 Cbc With Differential Ord2 Lymph% 18.7 % 02/20/2018 Cbc With Differential Ord2 [place]% 5.7 % 02/20/2018 Cbc With Differential Ord2 MCH 26.2 pg 02/20/2018 Cbc With Differential Ord2 MCHC 30.1 pg 02/20/2018 Cbc With Differential Ord2 Eos% 1.0 % 02/20/2018 Cbc With Differential Ord2 PLT 341 K/ul 02/20/2018 Cbc With Differential Ord2 Baso% 0.2 % 02/20/2018 Cbc With Differential Ord2 RDW 16.7 % 02/20/2018 Cbc With Differential Ord2 Neut ABS# 6.41 K/ul 02/20/2018 Cbc With Differential Ord2 Lymph ABS# 1.61 K/ul 02/20/2018 Cbc With Differential Ord2 [place] ABS# 0.5 K/ul 02/20/2018 Cbc With Differential Ord2 Eos ABS# 0.1 K/ul 02/20/2018 Cbc With Differential Ord2 Baso ABS# 0.0 K/ul 02/20/2018 Comp Metabolic Sww554 NA 134 mEq/L 02/20/2018 Comp Metabolic Bfh746 K 3.9 mEq/L 02/20/2018 Comp Metabolic Yur360 CL 90 mEq/L 02/20/2018 Comp Metabolic Dkj434 CO2 32.0 mEq/L 02/20/2018 Comp Metabolic Uul882 ANION GAP 16 02/20/2018 Comp Metabolic Vse074 GLUCOSE 287 mg/dL 02/20/2018 Comp Metabolic Mhf360 Creat 0.8 mg/dL 02/20/2018 Comp Metabolic The808 eGFR 72 ml/min/1.73m2 02/20/2018 Comp Metabolic Yhe194 BUN 13 mg/dL 02/20/2018 Comp Metabolic Glt295 B/C Ratio 15.5 Ratio 02/20/2018 Comp Metabolic Tsq090 CALCIUM 9.0 mg/dL 02/20/2018 Comp Metabolic Ckv467 ALK PHOS 120 U/L 02/20/2018 Comp Metabolic Rzp802 AST(SGOT) 21 U/L 02/20/2018 Comp Metabolic Xoq403 ALT(SGPT) 17 U/L 02/20/2018 Comp Metabolic Xon013 BILI T 0.4 mg/dL 02/20/2018 Comp Metabolic Jmc044 ALBUMIN 3.8 g/dL 02/20/2018 Comp Metabolic Fod331 TPRO 6.9 g/dL 02/20/2018 Comp Metabolic Iin178 GLOB 3.1 g/dL 02/20/2018 Comp Metabolic Kia620 A/G Ratio 1.3 Ratio 02/20/2018 Comp Metabolic Hgn375 Osmo 279 mOsmo 02/20/2018 Vitamin D 25 Oh [id number] VITAMIN D, 25 HYDROXY 26.48 ng/mL Digoxin Ord9 DIGOXIN 0.7 NG/ML 02/20/2018 Culture Urine [id number] URINE CULTURE SEE NOTES 12/01/2017 Urine Culture Ucult Complete >100,000 col/ml aerobic growth sent to ref lab 11/29/2017 Comp Metabolic Tyz991 NA 135 mEq/L 08/21/2017 Comp Metabolic Ozy287 K 4.6 mEq/L 08/21/2017 Comp Metabolic Lop788 CL 92 mEq/L 08/21/2017 Comp Metabolic Jmx500 CO2 32.0 mEq/L 08/21/2017 Comp Metabolic Zkv087 ANION GAP 16 08/21/2017 Comp Metabolic Azf993 GLUCOSE 298 mg/dL 08/21/2017 Comp Metabolic Rvl081 Creat 1.1 mg/dL 08/21/2017 Comp Metabolic Ovg967 eGFR 54 ml/min/1.73m2 08/21/2017 Comp Metabolic Awu214 BUN 22 mg/dL 08/21/2017 Comp Metabolic Zwv813 B/C Ratio 20.6 Ratio 08/21/2017 Comp Metabolic Fsr765 CALCIUM 9.3 mg/dL 08/21/2017 Comp Metabolic Lsx735 ALK PHOS 145 U/L 08/21/2017 Comp Metabolic Qbm276 AST(SGOT) 31 U/L 08/21/2017 Comp Metabolic Dvr444 ALT(SGPT) 19 U/L 08/21/2017 Comp Metabolic Gwq817 BILI T 0.3 mg/dL 08/21/2017 Comp Metabolic Mvn836 ALBUMIN 3.8 g/dL 08/21/2017 Comp Metabolic Ueo741 TPRO 7.1 g/dL 08/21/2017 Comp Metabolic Lzp804 GLOB 3.3 g/dL 08/21/2017 Comp Metabolic Sok136 A/G Ratio 1.2 Ratio 08/21/2017 Comp Metabolic Ouh014 Osmo 285 mOsmo 08/21/2017 Cbc With Differential [...] 27.9 pg 08/18/2017 Cbc With Differential Ord2 [place]% 6.9 % 08/18/2017 Cbc With Differential Ord2 Eos% 2.7 % 08/18/2017 Cbc With Differential Ord2 MCHC 31.7 pg 08/18/2017 Cbc With Differential Ord2 Baso% 0.4 % 08/18/2017 Cbc With Differential Ord2 PLT 337 K/ul 08/18/2017 Cbc With Differential Ord2 Neut ABS# 6.77 K/ul 08/18/2017 Cbc With Differential Ord2 RDW 15.4 % 08/18/2017 Cbc With Differential Ord2 Lymph ABS# 2.05 K/ul 08/18/2017 Cbc With Differential Ord2 [place] ABS# 0.7 K/ul 08/18/2017 Cbc With Differential Ord2 Eos ABS# 0.3 K/ul 08/18/2017 Cbc With Differential Ord2 Baso ABS# 0.0 K/ul 08/18/2017 %Hba1C Jyh636 % HbA1c 45024-4 11.5 % 06/13/2017 %Hba1C Euw951 Gluc Ave 283 mg/dL 06/13/2017 Cbc With [...] 20.0 % 03/27/2017 Cbc With Differential Ord2 [place]% 7.2 % 03/27/2017 Cbc With Differential Ord2 [...] 2.11 K/ul 03/27/2017 Cbc With Differential Ord2 [place] ABS# 0.8 K/ul 03/27/2017 Cbc With Differential Ord2 Eos ABS# 0.2 K/ul 03/27/2017 Cbc With Differential Ord2 Baso ABS# 0.0 K/ul 03/27/2017 Digoxin Ord9 DIGOXIN 0.5 NG/ML 03/27/2017 Comp Metabolic Pwq265 NA 136 mEq/L 03/27/2017 Comp Metabolic Gbp909 K 4.1 mEq/L 03/27/2017 Comp Metabolic Oyx972 CL 90 mEq/L 03/27/2017 Comp Metabolic Pox848 CO2 34.0 mEq/L 03/27/2017 Comp Metabolic Yng617 ANION GAP 16 03/27/2017 Comp Metabolic Lkl110 GLUCOSE 325 mg/dL 03/27/2017 Comp Metabolic Zzb608 Creat 1.0 mg/dL 03/27/2017 Comp Metabolic Uco841 eGFR 62 ml/min/1.73m2 03/27/2017 Comp Metabolic Xwe187 BUN 15 mg/dL 03/27/2017 Comp Metabolic Giu751 B/C Ratio 15.8 Ratio 03/27/2017 Comp Metabolic Tsu340 CALCIUM 9.5 mg/dL 03/27/2017 Comp Metabolic Iyg006 ALK PHOS 159 U/L 03/27/2017 Comp Metabolic Nsw940 AST(SGOT) 57 U/L 03/27/2017 Comp Metabolic Jhg161 ALT(SGPT) 32 U/L 03/27/2017 Comp Metabolic Cba401 BILI T 0.4 mg/dL 03/27/2017 Comp Metabolic Wsy744 ALBUMIN 4.3 g/dL 03/27/2017 Comp Metabolic Xyr149 TPRO 7.3 g/dL 03/27/2017 Comp Metabolic Tnj080 GLOB 3.0 g/dL 03/27/2017 Comp Metabolic Fwz511 A/G Ratio 1.4 Ratio 03/27/2017 Comp Metabolic Pjp878 Osmo 285 mOsmo 03/27/2017 Magnesium Ord90 Mag 2.4 mg/dL 02/27/2017 Comp Metabolic Qkp910 NA 138 mEq/L 02/27/2017 Comp Metabolic Yqp256 K 4.2 mEq/L 02/27/2017 Comp Metabolic Bof015 CL 91 mEq/L 02/27/2017 Comp Metabolic Ycs502 CO2 36.0 mEq/L 02/27/2017 Comp Metabolic Lng372 ANION GAP 15 02/27/2017 Comp Metabolic Jgr471 GLUCOSE 297 mg/dL 02/27/2017 Comp Metabolic Vgq272 Creat 0.9 mg/dL 02/27/2017 Comp Metabolic Yiq891 eGFR 71 ml/min/1.73m2 02/27/2017 Comp Metabolic Ait178 BUN 12 mg/dL 02/27/2017 Comp Metabolic Qsc591 B/C Ratio 14.1 Ratio 02/27/2017 Comp Metabolic Tct592 CALCIUM 9.0 mg/dL 02/27/2017 Comp Metabolic Pah098 ALK PHOS 146 U/L 02/27/2017 Comp Metabolic Jam133 AST(SGOT) 28 U/L 02/27/2017 Comp Metabolic Nbl002 ALT(SGPT) 12 U/L 02/27/2017 Comp Metabolic Aja334 BILI T 0.3 mg/dL 02/27/2017 Comp Metabolic Yff491 ALBUMIN 3.8 g/dL 02/27/2017 Comp Metabolic Jxv179 TPRO 6.6 g/dL 02/27/2017 Comp Metabolic Mvu248 GLOB 2.8 g/dL 02/27/2017 Comp Metabolic Dvm073 A/G Ratio 1.3 Ratio 02/27/2017 Comp Metabolic Eew826 Osmo 286 mOsmo 02/27/2017 Digoxin Ord9 DIGOXIN <0.2 NG/ML 02/14/2017 Comp Metabolic Qdp021 NA 138 mEq/L 02/14/2017 Comp Metabolic Gtz649 K 3.5 mEq/L 02/14/2017 Comp Metabolic Zpd995 CL 95 mEq/L 02/14/2017 Comp Metabolic Cre167 CO2 29.0 mEq/L 02/14/2017 Comp Metabolic Hzj328 ANION GAP 18 02/14/2017 Comp Metabolic Wvl149 GLUCOSE 254 mg/dL 02/14/2017 Comp Metabolic Tir066 Creat 1.0 mg/dL 02/14/2017 Comp Metabolic Nsz513 eGFR 62 ml/min/1.73m2 02/14/2017 Comp Metabolic Mde852 BUN 14 mg/dL 02/14/2017 Comp Metabolic Blo178 B/C Ratio 14.6 Ratio 02/14/2017 Comp Metabolic Jhe398 CALCIUM 8.6 mg/dL 02/14/2017 Comp Metabolic Knn001 ALK PHOS 155 U/L 02/14/2017 Comp Metabolic Fyf284 AST(SGOT) 42 U/L 02/14/2017 Comp Metabolic Ofh995 ALT(SGPT) 28 U/L 02/14/2017 Comp Metabolic Bgl326 BILI T 0.3 mg/dL 02/14/2017 Comp Metabolic Wtn042 ALBUMIN 3.6 g/dL 02/14/2017 Comp Metabolic Jrm549 TPRO 6.2 g/dL 02/14/2017 Comp Metabolic Wqv162 GLOB 2.6 g/dL 02/14/2017 Comp Metabolic Zrs529 A/G Ratio 1.4 Ratio 02/14/2017 Comp Metabolic Lwa914 Osmo 285 mOsmo 02/14/2017 Vitamin D 25 Oh Jaf7786 VITAMIN D, 25 HYDROXY 8.99 ng/mL Tsh [...] 28.0 pg 01/16/2017 Cbc With Differential Ord2 [place]% 7.3 % 01/16/2017 Cbc With Differential Ord2 [...] 1.42 K/ul 01/16/2017 Cbc With Differential Ord2 [place] ABS# 0.6 K/ul 01/16/2017 Cbc With Differential Ord2 Eos ABS# 0.1 K/ul 01/16/2017 Cbc With Differential Ord2 Baso ABS# 0.0 K/ul 01/16/2017 Sed Rate Ord21 ESR 33 mm/hr 01/16/2017 C-Reactive Protein Qnt Crqnt CRP 3.3 mg/dl 01/16/2017 Free T4 Knh418 FREE T4 0.81 ng/dL 01/16/2017 %Hba1C Vdd561 % HbA1c 26467-5 12.4 % 01/16/2017 %Hba1C Inw120 Gluc Ave 309 mg/dL 01/16/2017 Comp Metabolic Yfl833 NA 134 mEq/L 01/16/2017 Comp Metabolic Lsy434 K 4.0 mEq/L 01/16/2017 Comp Metabolic Sha854 CL 89 mEq/L 01/16/2017 Comp Metabolic Fco571 CO2 30.0 mEq/L 01/16/2017 Comp Metabolic Lkg386 ANION GAP 19 01/16/2017 Comp Metabolic Yxm608 GLUCOSE 496 Result Verified By Repeat Analysis mg/dL 01/16/2017 Comp Metabolic Lol239 Creat 0.8 mg/dL 01/16/2017 Comp Metabolic Mvq419 eGFR 73 ml/min/1.73m2 01/16/2017 Comp Metabolic Hbj108 BUN 13 mg/dL 01/16/2017 Comp Metabolic Atf934 B/C Ratio 15.7 Ratio 01/16/2017 Comp Metabolic Umw052 CALCIUM 8.8 mg/dL 01/16/2017 Comp Metabolic Ajq459 ALK PHOS 171 U/L 01/16/2017 Comp Metabolic Eba426 AST(SGOT) 54 U/L 01/16/2017 Comp Metabolic Djd928 ALT(SGPT) 32 U/L 01/16/2017 Comp Metabolic Xyz205 BILI T 0.3 mg/dL 01/16/2017 Comp Metabolic Jnm965 ALBUMIN 3.9 g/dL 01/16/2017 Comp Metabolic Uin361 TPRO 6.5 g/dL 01/16/2017 Comp Metabolic Mtb664 GLOB 2.6 g/dL 01/16/2017 Comp Metabolic Rjv259 A/G Ratio 1.5 Ratio 01/16/2017 Comp Metabolic Xpm190 Osmo 290 mOsmo 01/16/2017 Comp Metabolic Fkg927 NA 135 mEq/L 09/14/2016 Comp Metabolic Wby165 K 5.2 mEq/L 09/14/2016 Comp Metabolic Voe050 CL 93 mEq/L 09/14/2016 Comp Metabolic Wut843 CO2 26.0 mEq/L 09/14/2016 Comp Metabolic Qtm431 ANION GAP 21 09/14/2016 Comp Metabolic Fcs032 GLUCOSE 326 mg/dL 09/14/2016 Comp Metabolic Yua992 Creat 1.0 mg/dL 09/14/2016 Comp Metabolic Eqf258 eGFR 57 ml/min/1.73m2 09/14/2016 Comp Metabolic Zme261 BUN 16 mg/dL 09/14/2016 Comp Metabolic Trk826 B/C Ratio 15.5 Ratio 09/14/2016 Comp Metabolic Bvo956 CALCIUM 9.2 mg/dL 09/14/2016 Comp Metabolic Qsf689 ALK PHOS 160 U/L 09/14/2016 Comp Metabolic Mhw020 AST(SGOT) 49 U/L 09/14/2016 Comp Metabolic Nti373 ALT(SGPT) 32 U/L 09/14/2016 Comp Metabolic Ylw796 BILI T 0.4 mg/dL 09/14/2016 Comp Metabolic Rlt554 ALBUMIN 4.0 g/dL 09/14/2016 Comp Metabolic Ghl742 TPRO 7.3 g/dL 09/14/2016 Comp Metabolic Ihz522 GLOB 3.3 g/dL 09/14/2016 Comp Metabolic Ttk732 A/G Ratio 1.2 Ratio 09/14/2016 Comp Metabolic Psr940 Osmo 284 mOsmo 09/14/2016 Cbc With Differential [...] 28.2 pg 09/14/2016 Cbc With Differential Ord2 [place]% 6.2 % 09/14/2016 Cbc With Differential Ord2 MCHC 32.4 pg 09/14/2016 Cbc With Differential Ord2 Eos% 1.8 % 09/14/2016 Cbc With Differential Ord2 PLT 297 K/ul 09/14/2016 Cbc With Differential Ord2 Baso% 2.6 % 09/14/2016 Cbc With Differential Ord2 RDW 16.8 % 09/14/2016 Cbc With Differential Ord2 Neut ABS# 7.37 K/ul 09/14/2016 Cbc With Differential Ord2 Lymph ABS# 2.09 K/ul 09/14/2016 Cbc With Differential Ord2 [place] ABS# 0.7 K/ul 09/14/2016 Cbc With Differential Ord2 Eos ABS# 0.2 K/ul 09/14/2016 Cbc With Differential Ord2 Baso ABS# 0.3 K/ul 09/14/2016 %Hba1C Gse346 % HbA1c 27522-1 10.7 % 09/14/2016 %Hba1C Npg420 Gluc Ave 260 mg/dL 09/14/2016 Manual Differential Ord52 D-Neutr 62 % 09/14/2016 Manual Differential Ord52 D-[place] 1 % 09/14/2016 Manual Differential Ord52 D-Lymph 34 % 09/14/2016 Manual Differential Ord52 D-Eos 2 % 09/14/2016 Manual Differential Ord52 D-[place] 1 % 09/14/2016 Comp Metabolic Evt495 NA 134 mEq/L 08/10/2016 Comp Metabolic Owa133 K 5.0 mEq/L 08/10/2016 Comp Metabolic Vzf918 CL 91 mEq/L 08/10/2016 Comp Metabolic Hyd082 CO2 29.0 mEq/L 08/10/2016 Comp Metabolic Jxl335 ANION GAP 19 08/10/2016 Comp Metabolic Nfp814 GLUCOSE 291 mg/dL 08/10/2016 Comp Metabolic Zis048 Creat 0.9 mg/dL 08/10/2016 Comp Metabolic Fiu576 eGFR 68 ml/min/1.73m2 08/10/2016 Comp Metabolic Uqq801 BUN 20 mg/dL 08/10/2016 Comp Metabolic Zyh721 B/C Ratio 22.7 Ratio 08/10/2016 Comp Metabolic Voz653 CALCIUM 9.7 mg/dL 08/10/2016 Comp Metabolic Uxz844 ALK PHOS 144 U/L 08/10/2016 Comp Metabolic Rwo173 AST(SGOT) 62 U/L 08/10/2016 Comp Metabolic Wrp701 ALT(SGPT) 37 U/L 08/10/2016 Comp Metabolic Xgg423 BILI T 0.3 mg/dL 08/10/2016 Comp Metabolic Zbu099 ALBUMIN 4.3 g/dL 08/10/2016 Comp Metabolic Rlm717 TPRO 7.3 g/dL 08/10/2016 Comp Metabolic Osd721 GLOB 3.0 g/dL 08/10/2016 Comp Metabolic Ugv265 A/G Ratio 1.5 Ratio 08/10/2016 Comp Metabolic Rld180 Osmo 282 mOsmo 08/10/2016 Free T4 Lui729 FREE T4 0.89 ng/dL 08/09/2016 Tsh Ord6 [...] 27.1 pg 08/09/2016 Cbc With Differential Ord2 [place]% 5.4 % 08/09/2016 Cbc With Differential Ord2 [...] 2.46 K/ul 08/09/2016 Cbc With Differential Ord2 [place] ABS# 0.8 K/ul 08/09/2016 Cbc With Differential [...] 26.3 % 04/20/2016 Cbc With Differential Ord2 [place]% 6.3 % 04/20/2016 Cbc With Differential Ord2 MCH 27.3 pg 04/20/2016 Cbc With Differential Ord2 MCHC 31.3 pg 04/20/2016 Cbc With Differential Ord2 Eos% 2.0 % 04/20/2016 Cbc With Differential Ord2 PLT 365 K/ul 04/20/2016 Cbc With Differential Ord2 Baso% 0.2 % 04/20/2016 Cbc With Differential Ord2 Neut ABS# 6.52 K/ul 04/20/2016 Cbc With Differential Ord2 RDW 15.2 % 04/20/2016 Cbc With Differential Ord2 Lymph ABS# 2.63 K/ul 04/20/2016 Cbc With Differential Ord2 [place] ABS# 0.6 K/ul 04/20/2016 Cbc With Differential Ord2 Eos ABS# 0.2 K/ul 04/20/2016 Cbc With Differential Ord2 Baso ABS# 0.0 K/ul 04/20/2016 Comp Metabolic Tmd048 NA 133 mEq/L 04/11/2016 Comp Metabolic Zmr126 K 4.1 mEq/L 04/11/2016 Comp Metabolic Eoo041 CL 92 mEq/L 04/11/2016 Comp Metabolic Pun902 CO2 30.0 mEq/L 04/11/2016 Comp Metabolic Tdp631 ANION GAP 15 04/11/2016 Comp Metabolic Uxv985 GLUCOSE 414 mg/dL 04/11/2016 Comp Metabolic Qzs645 Creat 0.9 mg/dL 04/11/2016 Comp Metabolic Rby702 eGFR 65 ml/min/1.73m2 04/11/2016 Comp Metabolic Ccg840 BUN 22 mg/dL 04/11/2016 Comp Metabolic Bue674 B/C Ratio 23.9 Ratio 04/11/2016 Comp Metabolic Jlf265 CALCIUM 9.2 mg/dL 04/11/2016 Comp Metabolic Sdq508 ALK PHOS 145 U/L 04/11/2016 Comp Metabolic Aqv131 AST(SGOT) 22 U/L 04/11/2016 Comp Metabolic Kxq510 ALT(SGPT) 21 U/L 04/11/2016 Comp Metabolic Imr317 BILI T 0.3 mg/dL 04/11/2016 Comp Metabolic Xth252 ALBUMIN 3.9 g/dL 04/11/2016 Comp Metabolic Hhc663 TPRO 6.8 g/dL 04/11/2016 Comp Metabolic Iar678 GLOB 3.0 g/dL 04/11/2016 Comp Metabolic Jau352 A/G Ratio 1.3 Ratio 04/11/2016 Comp Metabolic Kmw893 Osmo 287 mOsmo 04/11/2016 Cbc With Differential Ord2 WBC 9.53 K/ul 04/11/2016 Cbc With Differential Ord2 RBC 4.42 M/ul 04/11/2016 Cbc With Differential Ord2 HGB 12.2 g/dl 04/11/2016 Cbc With Differential Ord2 Neut% 68.8 % 04/11/2016 Cbc With Differential Ord2 HCT 39.3 % 04/11/2016 Cbc With Differential Ord2 MCV 88.9 fl 04/11/2016 Cbc With Differential Ord2 Lymph% 21.9 % 04/11/2016 Cbc With Differential Ord2 MCH 27.6 pg 04/11/2016 Cbc With Differential Ord2 [place]% 6.9 % 04/11/2016 Cbc With Differential Ord2 [...] 2.09 K/ul 04/11/2016 Cbc With Differential Ord2 [place] ABS# 0.7 K/ul 04/11/2016 Cbc With Differential Ord2 Eos ABS# 0.2 K/ul 04/11/2016 Cbc With Differential Ord2 Baso ABS# 0.0 K/ul 04/11/2016 Comp Metabolic Hla437 NA 136 mEq/L 02/26/2016 Comp Metabolic Aga586 K 3.9 mEq/L 02/26/2016 Comp Metabolic Upy687 CL 95 mEq/L 02/26/2016 Comp Metabolic Oyq780 CO2 29.0 mEq/L 02/26/2016 Comp Metabolic Voh267 ANION GAP 16 02/26/2016 Comp Metabolic Xxu974 GLUCOSE 277 mg/dL 02/26/2016 Comp Metabolic Ahn777 Creat 0.7 mg/dL 02/26/2016 Comp Metabolic Gil063 eGFR 88 ml/min/1.73m2 02/26/2016 Comp Metabolic Nhz317 BUN 11 mg/dL 02/26/2016 Comp Metabolic Ljy301 B/C Ratio 15.5 Ratio 02/26/2016 Comp Metabolic Qsv936 CALCIUM 8.8 mg/dL 02/26/2016 Comp Metabolic Elq282 ALK PHOS 119 U/L 02/26/2016 Comp Metabolic Pkc092 AST(SGOT) 25 U/L 02/26/2016 Comp Metabolic Knu849 ALT(SGPT) 20 U/L 02/26/2016 Comp Metabolic Yoe254 BILI T 0.3 mg/dL 02/26/2016 Comp Metabolic Btd608 ALBUMIN 3.8 g/dL 02/26/2016 Comp Metabolic Fof899 TPRO 6.6 g/dL 02/26/2016 Comp Metabolic Jfz384 GLOB 2.8 g/dL 02/26/2016 Comp Metabolic Zjg328 A/G Ratio 1.3 Ratio 02/26/2016 Comp Metabolic Wgy174 Osmo 281 mOsmo 02/26/2016 Cbc With Differential [...] 29.6 pg 02/26/2016 Cbc With Differential Ord2 [place]% 6.4 % 02/26/2016 Cbc With Differential Ord2 [...] 2.78 K/ul 02/26/2016 Cbc With Differential Ord2 [place] ABS# 0.8 K/ul 02/26/2016 Cbc With Differential Ord2 Eos ABS# 0.2 K/ul 02/26/2016 Cbc With Differential Ord2 Baso ABS# 0.1 K/ul 02/26/2016 %Hba1C Oec751 % HbA1c 98336-6 9.6 % 02/26/2016 %Hba1C Pnl419 Gluc Ave 229 mg/dL 02/26/2016 Comp Metabolic Zmi157 NA 138 mEq/L 11/10/2015 Comp Metabolic Fdr189 K 4.5 mEq/L 11/10/2015 Comp Metabolic Kjg940 CL 99 mEq/L 11/10/2015 Comp Metabolic Bgo066 CO2 34.0 mEq/L 11/10/2015 Comp Metabolic Jaz086 ANION GAP 10 11/10/2015 Comp Metabolic Qap037 GLUCOSE 167 mg/dL 11/10/2015 Comp Metabolic Lyd637 Creat 0.8 mg/dL 11/10/2015 Comp Metabolic Lai750 eGFR 78 ml/min/1.73m2 11/10/2015 Comp Metabolic Qsi276 BUN 22 mg/dL 11/10/2015 Comp Metabolic Xhp385 B/C Ratio 27.8 Ratio 11/10/2015 Comp Metabolic Csq091 CALCIUM 8.5 mg/dL 11/10/2015 Comp Metabolic Bbf489 ALK PHOS 130 U/L 11/10/2015 Comp Metabolic Hse216 AST(SGOT) 56 U/L 11/10/2015 Comp Metabolic Psn902 ALT(SGPT) 51 U/L 11/10/2015 Comp Metabolic Oei817 BILI T 0.5 mg/dL 11/10/2015 Comp Metabolic Crc130 ALBUMIN 3.5 g/dL 11/10/2015 Comp Metabolic Sky266 TPRO 5.8 g/dL 11/10/2015 Comp Metabolic Jdl061 GLOB 2.3 g/dL 11/10/2015 Comp Metabolic Wrp655 A/G Ratio 1.5 Ratio 11/10/2015 Comp Metabolic Wmv827 Osmo 283 mOsmo 11/10/2015 Cbc With Differential [...] 93.1 fl 11/10/2015 Cbc With Differential Ord2 [place]% 7.7 % 11/10/2015 Cbc With Differential Ord2 [...] 1.92 K/ul 11/10/2015 Cbc With Differential Ord2 [place] ABS# 0.9 K/ul 11/10/2015 Cbc With Differential Ord2 Eos ABS# 0.1 K/ul 11/10/2015 Cbc With Differential Ord2 Baso ABS# 0.0 K/ul 11/10/2015 Tsh Ord6 hTSH II 3.53 uIU/mL 08/11/2015 Cbc With Differential Ord2 WBC 11.55 K/ul 08/11/2015 Cbc With Differential Ord2 RBC 4.76 M/ul 08/11/2015 Cbc With Differential Ord2 HGB 13.6 g/dl 08/11/2015 Cbc With Differential Ord2 Neut% 65.2 % 08/11/2015 Cbc With Differential Ord2 HCT 45.4 % 08/11/2015 Cbc With Differential Ord2 Lymph% 25.4 % 08/11/2015 Cbc With Differential Ord2 MCV 95.4 fl 08/11/2015 Cbc With Differential Ord2 MCH 28.6 pg 08/11/2015 Cbc With Differential Ord2 [place]% 8.1 % 08/11/2015 Cbc With Differential Ord2 [...] 2.93 K/ul 08/11/2015 Cbc With Differential Ord2 [place] ABS# 0.9 K/ul 08/11/2015 Cbc With Differential Ord2 Eos ABS# 0.1 K/ul 08/11/2015 Cbc With Differential Ord2 Baso ABS# 0.0 K/ul 08/11/2015 Cbc With Differential Ord2 New Analyzer Notice Please note new ref ranges starting 06-03-2015 due to implemntation of new five part differential hematolgy analyzer. 08/11/2015 Comp Metabolic Rbm961 NA 142 mEq/L 08/11/2015 Comp Metabolic Van234 K 3.6 mEq/L 08/11/2015 Comp Metabolic Fqj819 CL 98 mEq/L 08/11/2015 Comp Metabolic Ikb412 CO2 33.0 mEq/L 08/11/2015 Comp Metabolic Jgu465 ANION GAP 15 08/11/2015 Comp Metabolic Yyy819 GLUCOSE 100 mg/dL 08/11/2015 Comp Metabolic Fmn199 Creat 0.9 mg/dL 08/11/2015 Comp Metabolic Kab705 eGFR 65 ml/min/1.73m2 08/11/2015 Comp Metabolic Iwq811 BUN 15 mg/dL 08/11/2015 Comp Metabolic Kvf445 B/C Ratio 16.3 Ratio 08/11/2015 Comp Metabolic Ufb989 CALCIUM 8.8 mg/dL 08/11/2015 Comp Metabolic Tem575 ALK PHOS 171 U/L 08/11/2015 Comp Metabolic Zzy686 AST(SGOT) 76 U/L 08/11/2015 Comp Metabolic Wqu243 ALT(SGPT) 64 U/L 08/11/2015 Comp Metabolic Ted646 BILI T 0.4 mg/dL 08/11/2015 Comp Metabolic Hka802 ALBUMIN 4.2 g/dL 08/11/2015 Comp Metabolic Vbj519 TPRO 6.7 g/dL 08/11/2015 Comp Metabolic Fmw586 GLOB 2.6 g/dL 08/11/2015 Comp Metabolic Xql105 A/G Ratio 1.6 Ratio 08/11/2015 Comp Metabolic Ctp491 Osmo 284 mOsmo 08/11/2015 %Hba1C Lhg583 % HbA1c 41320-2 6.7 % 08/11/2015 %Hba1C Pmj982 Gluc Ave 146 mg/dL 08/11/2015 Free T4 Yct188 FREE T4 1.07 ng/dL 08/11/2015 Culture Urine [id number] URINE CULTURE SEE NOTES 07/23/2015 Culture Urine [id number] Continued Results 07/23/2015 Urine Culture Ucult Complete Growth of aerobe sent to ref lab 07/21/2015 Free T4 Aja572 FREE T4 0.76 ng/dL 04/15/2015 Tsh Ord6 hTSH II 1.99 uIU/mL 04/15/2015 %Hba1C Tpl431 % HbA1c 50204-5 6.7 % 04/14/2015 %Hba1C Zuu707 Gluc Ave 146 mg/dL 04/14/2015 Comp Metabolic Grw092 NA 140 mEq/L 04/14/2015 Comp Metabolic Uvu792 K 4.4 mEq/L 04/14/2015 Comp Metabolic Vxe255 CL 99 mEq/L 04/14/2015 Comp Metabolic Fgt590 CO2 29.0 mEq/L 04/14/2015 Comp Metabolic Txq725 ANION GAP 16 04/14/2015 Comp Metabolic Aui314 GLUCOSE 100 mg/dL 04/14/2015 Comp Metabolic Hbi522 Creat 0.7 mg/dL 04/14/2015 Comp Metabolic Ups951 eGFR 91 ml/min/1.73m2 04/14/2015 Comp Metabolic Dbb350 BUN 13 mg/dL 04/14/2015 Comp Metabolic Qak461 B/C Ratio 18.8 Ratio 04/14/2015 Comp Metabolic Byl852 CALCIUM 9.1 mg/dL 04/14/2015 Comp Metabolic Wrj686 ALK PHOS 138 U/L 04/14/2015 Comp Metabolic Ypx908 AST(SGOT) 22 U/L 04/14/2015 Comp Metabolic Rnr267 ALT(SGPT) 22 U/L 04/14/2015 Comp Metabolic Vue239 BILI T 0.3 mg/dL 04/14/2015 Comp Metabolic Dcz292 ALBUMIN 4.0 g/dL 04/14/2015 Comp Metabolic Gie192 TPRO 6.5 g/dL 04/14/2015 Comp Metabolic Usz533 GLOB 2.5 g/dL 04/14/2015 Comp Metabolic Lpx165 A/G Ratio 1.6 Ratio 04/14/2015 Comp Metabolic Hvn681 Osmo 280 mOsmo 04/14/2015 Cbc With Differential [...] Ord2 RDW 16.5 % 04/14/2015 CHEM 14 8370128 AST 15 U/L 09/11/2013 CHEM 14 2383794 ALT 25 IU/L 09/11/2013 CHEM 14 7700483 BUN 29 MG/DL 09/11/2013 CHEM 14 5655088 ALBUMIN 3.8 GM/DL 09/11/2013 CHEM 14 4851745 CHLORIDE 99 MMOL/L 09/11/2013 CHEM 14 6945390 BILI TOT 0.2 MG/DL 09/11/2013 CHEM 14 5751738 ALK PHOS 118 U/L 09/11/2013 CHEM 14 6161172 SODIUM 136 MMOL/L 09/11/2013 CHEM 14 2002225 CREATININE 1.26 MG/DL 09/11/2013 CHEM 14 2038980 CALCIUM 9.0 MG/DL 09/11/2013 CHEM 14 7738824 POTASSIUM 5.0 MMOL/L 09/11/2013 CHEM 14 1941026 PROT TOT 6.2 GM/DL 09/11/2013 CHEM 14 6169284 GLUCOSE 254 MG/DL 09/11/2013 CHEM 14 4597077 BICARB 29 MMOL/L 09/11/2013 CHEM 14 2417669 ANION GAP 8 MEQ/L 09/11/2013 GFR CALC 2791682 GFR AA 52.0L ML/MIN 09/11/2013 GFR CALC 4758045 GFR NON-AA 43.0L ML/MIN 09/11/2013 FREE T4 3416539 FREE T4 1.35 NG/DL 08/02/2013 CBC 8290636 WBC 7.5 10e9/L 08/01/2013 CBC 3053916 RBC 3.88 10e12/L 08/01/2013 CBC 2399451 HGB 12.1 g/dL 08/01/2013 CBC 4281803 HCT DET 37.6 % 08/01/2013 CBC 7373751 MCV 96.9 fL 08/01/2013 CBC 7032282 MCH 31.2 pg 08/01/2013 CBC 1501216 MCHC 32.2 g/dL 08/01/2013 CBC 9579781 PLT 289 10e9/L 08/01/2013 CBC 3663773 MPV 9.6 fL 08/01/2013 CBC 0988439 JOSEFINA % 56.0 % 08/01/2013 CBC 2689747 LY % 31.6 % 08/01/2013 CBC 4852295 MON % 10.0 % 08/01/2013 CBC 9404188 EOS % 1.7 % 08/01/2013 CBC 3285677 BASO % 0.7 % 08/01/2013 CBC 9478100 RDW 15.5 % 08/01/2013 CBC 7896141 ABS JOSEFINA 4.20 10e9/L 08/01/2013 CBC 0990318 ABS LYMPH 2.37 10e9/L 08/01/2013 CBC 2799693 ABS MONO 0.75 10e9/L 08/01/2013 CBC 1364831 ABS EOS 0.13 10e9/L 08/01/2013 CBC 8113535 ABS BASO 0.05 10e9/L 08/01/2013 CBC 6570439 RDW-SD 53.5 fL 08/01/2013 TSH 5659234 TSH 6.497 uIU/ML 08/01/2013 CHEM 14 1537511 AST 53 U/L 08/01/2013 CHEM 14 4714326 ALT 36 IU/L 08/01/2013 CHEM 14 8391637 BUN 16 MG/DL 08/01/2013 CHEM 14 6832342 ALBUMIN 4.2 GM/DL 08/01/2013 CHEM 14 3075726 CHLORIDE 103 MMOL/L 08/01/2013 CHEM 14 7259137 BILI TOT 0.4 MG/DL 08/01/2013 CHEM 14 4128557 ALK PHOS 113 U/L 08/01/2013 CHEM 14 6827045 SODIUM 139 MMOL/L 08/01/2013 CHEM 14 1685777 CREATININE 0.83 MG/DL 08/01/2013 CHEM 14 9000013 CALCIUM 9.5 MG/DL 08/01/2013 CHEM 14 5206908 POTASSIUM 4.2 MMOL/L 08/01/2013 CHEM 14 1962992 PROT TOT 6.4 GM/DL 08/01/2013 CHEM 14 2799422 GLUCOSE 135 MG/DL 08/01/2013 CHEM 14 6012147 BICARB 26 MMOL/L 08/01/2013 CHEM 14 1156907 ANION GAP 10 MEQ/L 08/01/2013 A1C HPLC 7101896 A1C HPLC 44437-8 8.1 % 08/01/2013 GFR CALC 1413424 GFR AA >60 ML/MIN 08/01/2013 GFR CALC 0818247 GFR NON-AA >60 ML/MIN 08/01/2013 CBC 4808960 WBC 10.4 10e9/L 03/21/2013 CBC 4302417 RBC 4.27 10e12/L 03/21/2013 CBC 0651509 HGB 13.1 g/dL 03/21/2013 CBC 4430432 HCT DET 41.2 % 03/21/2013 CBC 9675868 MCV 96.5 fL 03/21/2013 CBC 8549858 MCH 30.7 pg 03/21/2013 CBC 9322842 MCHC 31.8 g/dL 03/21/2013 CBC 8402844 PLT 398 10e9/L 03/21/2013 CBC 0585403 MPV 10.9 fL 03/21/2013 CBC 3183360 JOSEFINA % 65.4 % 03/21/2013 CBC 1897584 LY % 25.6 % 03/21/2013 CBC 3498524 MON % 6.7 % 03/21/2013 CBC 5523062 EOS % 1.9 % 03/21/2013 CBC 7744768 BASO % 0.4 % 03/21/2013 CBC 0450451 RDW 14.2 % 03/21/2013 CBC 7608282 ABS JOSEFINA 6.80 10e9/L 03/21/2013 CBC 1356357 ABS LYMPH 2.66 10e9/L 03/21/2013 CBC 4011185 ABS MONO 0.70 10e9/L 03/21/2013 CBC 2931668 ABS EOS 0.20 10e9/L 03/21/2013 CBC 8961583 ABS BASO 0.04 10e9/L 03/21/2013 CBC 2942939 RDW-SD 48.7 fL 03/21/2013 GFR CALC 1523043 GFR AA 57.0L ML/MIN 03/21/2013 GFR CALC 3065735 GFR NON-AA 47.0L ML/MIN 03/21/2013 CHEM 14 6868622 AST 22 U/L 03/21/2013 CHEM 14 5232900 ALT 22 IU/L 03/21/2013 CHEM 14 5663707 BUN 29 MG/DL 03/21/2013 CHEM 14 5786371 ALBUMIN 4.1 GM/DL 03/21/2013 CHEM 14 6213007 CHLORIDE 99 MMOL/L 03/21/2013 CHEM 14 8069754 BILI TOT 0.3 MG/DL 03/21/2013 CHEM 14 1680881 ALK PHOS 123 U/L 03/21/2013 CHEM 14 8571062 SODIUM 137 MMOL/L 03/21/2013 CHEM 14 8204925 CREATININE 1.16 MG/DL 03/21/2013 CHEM 14 5314315 CALCIUM 9.1 MG/DL 03/21/2013 CHEM 14 4883609 POTASSIUM 4.1 MMOL/L 03/21/2013 CHEM 14 7223759 PROT TOT 6.7 GM/DL 03/21/2013 CHEM 14 4614853 GLUCOSE 209 MG/DL 03/21/2013 CHEM 14 3549825 BICARB 26 MMOL/L 03/21/2013 CHEM 14 3387931 ANION GAP 12 MEQ/L 03/21/2013 A1C HPLC 4205815 A1C HPLC 30297-6 6.6 % 03/21/2013 GFR CALC 2024595 GFR AA >60 ML/MIN 01/17/2013 GFR CALC 0776574 GFR NON-AA 51.0L ML/MIN 01/17/2013 CHEM 14 1313587 AST 18 U/L 01/17/2013 CHEM 14 2826949 ALT 32 IU/L 01/17/2013 CHEM 14 6667714 BUN 22 MG/DL 01/17/2013 CHEM 14 9775667 ALBUMIN 4.1 GM/DL 01/17/2013 CHEM 14 9904676 CHLORIDE 99 MMOL/L 01/17/2013 CHEM 14 3310875 BILI TOT 0.3 MG/DL 01/17/2013 CHEM 14 4660925 ALK PHOS 110 U/L 01/17/2013 CHEM 14 0833836 SODIUM 138 MMOL/L 01/17/2013 CHEM 14 3457696 CREATININE 1.09 MG/DL 01/17/2013 CHEM 14 3639119 CALCIUM 8.8 MG/DL 01/17/2013 CHEM 14 3488420 POTASSIUM 3.5 MMOL/L 01/17/2013 CHEM 14 7819283 PROT TOT 6.1 GM/DL 01/17/2013 CHEM 14 9802232 GLUCOSE 163 MG/DL 01/17/2013 CHEM 14 9355110 BICARB 29 MMOL/L 01/17/2013 CHEM 14 6547782 ANION GAP 10 MEQ/L 01/17/2013 CBC 9559947 WBC 8.0 10e9/L 01/17/2013 CBC 1722378 RBC 3.85 10e12/L 01/17/2013 CBC 4041382 HGB 12.6 g/dL 01/17/2013 CBC 8608827 HCT DET 38.0 % 01/17/2013 CBC 5856446 MCV 98.7 fL 01/17/2013 CBC 5655156 MCH 32.7 pg 01/17/2013 CBC 6837274 MCHC 33.2 g/dL 01/17/2013 CBC 0078337 PLT 325 10e9/L 01/17/2013 CBC 1268460 MPV 10.4 fL 01/17/2013 CBC 4660155 JOSEFINA % 64.6 % 01/17/2013 CBC 0841312 LY % 27.0 % 01/17/2013 CBC 8459612 MON % 6.8 % 01/17/2013 CBC 2890043 EOS % 1.4 % 01/17/2013 CBC 1956829 BASO % 0.2 % 01/17/2013 CBC 4548311 RDW 15.5 % 01/17/2013 CBC 9913752 ABS JOSEFINA 5.17 10e9/L 01/17/2013 CBC 4941039 ABS LYMPH 2.16 10e9/L 01/17/2013 CBC 6088894 ABS MONO 0.54 10e9/L 01/17/2013 CBC 5728996 ABS EOS 0.11 10e9/L 01/17/2013 CBC 6561902 ABS BASO 0.02 10e9/L 01/17/2013 CBC 5223098 RDW-SD 54.3 fL 01/17/2013 TSH 7197900 TSH 3.683 uIU/ML 12/31/2012 FREE T4 3920814 FREE T4 1.34 NG/DL 12/31/2012 A1C HPLC 3538205 A1C HPLC 87644-7 6.6 % 12/21/2012 CHEM 14 5361243 AST 16 U/L 12/20/2012 CHEM 14 7464585 ALT 36 IU/L 12/20/2012 CHEM 14 8030099 BUN 26 MG/DL 12/20/2012 CHEM 14 7729366 ALBUMIN 4.2 GM/DL 12/20/2012 CHEM 14 9829585 CHLORIDE 103 MMOL/L 12/20/2012 CHEM 14 5189635 BILI TOT 0.4 MG/DL 12/20/2012 CHEM 14 1675275 ALK PHOS 107 U/L 12/20/2012 CHEM 14 0417427 SODIUM 141 MMOL/L 12/20/2012 CHEM 14 8446959 CREATININE 0.73 MG/DL 12/20/2012 CHEM 14 3773796 CALCIUM 9.2 MG/DL 12/20/2012 CHEM 14 6510967 POTASSIUM 4.3 MMOL/L 12/20/2012 CHEM 14 4291622 PROT TOT 6.2 GM/DL 12/20/2012 CHEM 14 3289525 GLUCOSE 135 MG/DL 12/20/2012 CHEM 14 0129837 BICARB 32 MMOL/L 12/20/2012 CHEM 14 0956171 ANION GAP 6 MEQ/L 12/20/2012 GFR CALC 3467840 GFR AA >60 ML/MIN 12/20/2012 GFR CALC 3779000 GFR NON-AA >60 ML/MIN 12/20/2012 CBC 6078399 WBC 8.4 10e9/L 12/20/2012 CBC 1642045 RBC 4.30 10e12/L 12/20/2012 CBC 2444982 HGB 13.9 g/dL 12/20/2012 CBC 3787871 HCT DET 41.8 % 12/20/2012 CBC 6901922 MCV 97.2 fL 12/20/2012 CBC 9202773 MCH 32.3 pg 12/20/2012 CBC 2880683 MCHC 33.3 g/dL 12/20/2012 CBC 8115857 PLT 358 10e9/L 12/20/2012 CBC 7269977 MPV 10.2 fL 12/20/2012 CBC 8495567 JOSEFINA % 63.3 % 12/20/2012 CBC 8326750 LY % 28.9 % 12/20/2012 CBC 2696429 MON % 6.3 % 12/20/2012 CBC 3476618 EOS % 1.1 % 12/20/2012 CBC 9139895 BASO % 0.4 % 12/20/2012 CBC 3782378 RDW 15.3 % 12/20/2012 CBC 6739759 ABS JOSEFINA 5.32 10e9/L 12/20/2012 CBC 2850655 ABS LYMPH 2.43 10e9/L 12/20/2012 CBC 2334764 ABS MONO 0.53 10e9/L 12/20/2012 CBC 7592049 ABS EOS 0.09 10e9/L 12/20/2012 CBC 7033838 ABS BASO 0.03 10e9/L 12/20/2012 CBC 6415985 RDW-SD 51.9 fL 12/20/2012 GFR CALC 1851335 GFR AA >60 ML/MIN 02/01/2012 GFR CALC 6940952 GFR NON-AA >60 ML/MIN 02/01/2012 CBC 8334346 WBC 10.8 10e9/L 02/01/2012 CBC 8675203 RBC 3.86 10e12/L 02/01/2012 CBC 6814861 HGB 11.8 g/dL 02/01/2012 CBC 2214996 HCT DET 36.3 % 02/01/2012 CBC 7049849 MCV 94.0 fL 02/01/2012 CBC 7593624 MCH 30.6 pg 02/01/2012 CBC 3989651 MCHC 32.5 g/dL 02/01/2012 CBC 6299421 PLT 321 10e9/L 02/01/2012 CBC 0247138 MPV 10.3 fL 02/01/2012 CBC 9381593 JOSEFINA % 75.9 % 02/01/2012 CBC 0110077 LY % 16.1 % 02/01/2012 CBC 0187343 MON % 6.8 % 02/01/2012 CBC 8762850 EOS % 1.0 % 02/01/2012 CBC 5782157 BASO % 0.2 % 02/01/2012 CBC 8846732 RDW 14.2 % 02/01/2012 CBC 5389293 ABS JOSEFINA 8.20 10e9/L 02/01/2012 CBC 5862643 ABS LYMPH 1.74 10e9/L 02/01/2012 CBC 1544091 ABS MONO 0.73 10e9/L 02/01/2012 CBC 5878134 ABS EOS 0.11 10e9/L 02/01/2012 CBC 7867010 ABS BASO 0.02 10e9/L 02/01/2012 CBC 1323776 RDW-SD 47.2 fL 02/01/2012 BRAIN PEP 9932995 BRAIN PEP FOOTNOTE pg/mL 02/01/2012 CHEM 14 4312088 AST 26 U/L 02/01/2012 CHEM 14 4191678 ALT 36 IU/L 02/01/2012 CHEM 14 8417166 BUN 29 MG/DL 02/01/2012 CHEM 14 4584668 ALBUMIN 3.7 GM/DL 02/01/2012 CHEM 14 1223183 CHLORIDE 105 MMOL/L 02/01/2012 CHEM 14 8513770 BILI TOT 0.2 MG/DL 02/01/2012 CHEM 14 9803347 ALK PHOS 89 U/L 02/01/2012 CHEM 14 8405150 SODIUM 141 MMOL/L 02/01/2012 CHEM 14 1182110 CREATININE 0.76 MG/DL 02/01/2012 CHEM 14 9671975 CALCIUM 9.0 MG/DL 02/01/2012 CHEM 14 9737924 POTASSIUM 4.8 MMOL/L 02/01/2012 CHEM 14 0715843 PROT TOT 5.5 GM/DL 02/01/2012 CHEM 14 5554956 GLUCOSE 83 MG/DL 02/01/2012 CHEM 14 1168925 BICARB 31 MMOL/L 02/01/2012 CHEM 14 4754105 ANION GAP 5 MEQ/L 02/01/2012 GFR CALC 0155067 GFR AA >60 ML/MIN 11/30/2011 GFR CALC 0484460 GFR NON-AA >60 ML/MIN 11/30/2011 CHEM 14 8137339 AST 14 U/L 11/30/2011 CHEM 14 1949813 ALT 17 IU/L 11/30/2011 CHEM 14 0215688 BUN 12 MG/DL 11/30/2011 CHEM 14 8911467 ALBUMIN 4.3 GM/DL 11/30/2011 CHEM 14 3112972 CHLORIDE 104 MMOL/L 11/30/2011 CHEM 14 3441181 BILI TOT 0.3 MG/DL 11/30/2011 CHEM 14 8824927 ALK PHOS 83 U/L 11/30/2011 CHEM 14 2068828 SODIUM 143 MMOL/L 11/30/2011 CHEM 14 5937751 CREATININE 0.71 MG/DL 11/30/2011 CHEM 14 [id number] CALCIUM 9.7 MG/DL 11/30/2011 CHEM 14 [id number] POTASSIUM 4.4 MMOL/L 11/30/2011 CHEM 14 [id number] PROT TOT 6.3 GM/DL 11/30/2011 CHEM 14 [id number] GLUCOSE 107 MG/DL 11/30/2011 CHEM 14 [id number] BICARB 27 MMOL/L 11/30/2011 CHEM 14 [id number] ANION GAP 12 MEQ/L 11/30/2011 CBC [id number] WBC 8.7 10e9/L 11/30/2011 CBC [id number] RBC 4.40 10e12/L 11/30/2011 CBC [id number] HGB 13.6 g/dL 11/30/2011 CBC 7777525 HCT DET 41.0 % 11/30/2011 CBC [id number] MCV 93.2 fL 11/30/2011 CBC [id number] MCH 30.9 pg 11/30/2011 CBC [id number] MCHC 33.2 g/dL 11/30/2011 CBC [id number] PLT 328 10e9/L 11/30/2011 CBC [id number] MPV 10.7 fL 11/30/2011 CBC [id number] JOSEFINA % 68.4 % 11/30/2011 CBC [id number] LY % 22.4 % 11/30/2011 CBC [id number] MON % 7.9 % 11/30/2011 CBC [id number] EOS % 1.1 % 11/30/2011 CBC [id number] BASO % 0.2 % 11/30/2011 CBC 1289603 RDW 13.5 % 11/30/2011 CBC [id number] ABS JOSEFINA 5.95 10e9/L 11/30/2011 CBC 1924351 ABS LYMPH 1.95 10e9/L 11/30/2011 CBC [id number] ABS MONO 0.69 10e9/L 11/30/2011 CBC [id number] ABS EOS 0.10 10e9/L 11/30/2011 CBC 7307176 ABS BASO 0.02 10e9/L 11/30/2011 CBC [id number] RDW-SD 45.0 fL 11/30/2011 URINALYSIS NONAUTO W/O SCOPE 98429 Specific [place] 1.030 DateTime(Free Text in Aprima) URINALYSIS NONAUTO W/O SCOPE 57134 PH 5 DateTime(Free Text in Aprima) URINALYSIS NONAUTO W/O SCOPE 36732 GLUCOSE neg DateTime( Free Text in Aprima) URINALYSIS NONAUTO W/O SCOPE 04576 Protein neg DateTime( Free Text in Aprima) URINALYSIS NONAUTO W/O SCOPE 34788 Blood neg DateTime(Free Text in Aprima) URINALYSIS NONAUTO W/O SCOPE 57957 Bilirubin neg DateTime(Free Text in Aprima) URINALYSIS NONAUTO W/O SCOPE 38783 Ketones neg DateTime( Free Text in Aprima) URINALYSIS NONAUTO W/O SCOPE 64953 Urobilinogen neg DateTime(Free Text in Aprima) URINALYSIS NONAUTO W/O SCOPE 81483 Nitrite neg DateTime( Free Text in Aprima) URINALYSIS NONAUTO W/O SCOPE 47677 Leukocytes neg DateTime(Free Text in Aprima) UA 77955 Specific [place] 1.010 DateTime(Free Text in Aprima ) UA 16156 PH 5 DateTime(Free Text in Aprima) UA 49300 GLUCOSE N DateTime(Free Text in Aprima) UA 24191 Protein N DateTime(Free Text in Aprima) UA 51266 Blood TRACE DateTime(Free Text in Aprima) UA 19278 Bilirubin N DateTime(Free Text in Aprima) UA 63522 Ketones N DateTime(Free Text in Aprima) UA 79531 Urobilinogen N DateTime(Free Text in Aprima) UA 25798 Nitrite N DateTime(Free Text in Aprima) UA 80933 Leukocytes N DateTime(Free Text in Aprima) URINALYSIS NONAUTO W/O SCOPE 65462 Specific [place] 1.010 DateTime(Free Text in Aprima) URINALYSIS NONAUTO W/O SCOPE 37549 PH 7.5 DateTime(Free Text in Aprima) URINALYSIS NONAUTO W/O SCOPE 66507 GLUCOSE DateTime( Free Text in Aprima) URINALYSIS NONAUTO W/O SCOPE 09535 Protein trace DateTime(Free Text in Aprima) URINALYSIS NONAUTO W/O SCOPE 02679 Blood DateTime(Free Text in Aprima) URINALYSIS NONAUTO W/O SCOPE 88886 Bilirubin DateTime( Free Text in Aprima) URINALYSIS NONAUTO W/O SCOPE 39872 Ketones DateTime( Free Text in Aprima) URINALYSIS NONAUTO W/O SCOPE 02274 Urobilinogen DateTime (Free Text in Aprima) URINALYSIS NONAUTO W/O SCOPE 30005 Nitrite DateTime( Free Text in Aprima) URINALYSIS NONAUTO W/O SCOPE 06335 Leukocytes DateTime( Free Text in Aprima) URINALYSIS NONAUTO W/O SCOPE 67127 Specific [place] 1.010 DateTime(Free Text in Aprima) URINALYSIS NONAUTO W/O SCOPE 64002 PH 6 DateTime(Free Text in Aprima) URINALYSIS NONAUTO W/O SCOPE 30609 GLUCOSE DateTime( Free Text in Aprima) URINALYSIS NONAUTO W/O SCOPE 93446 Protein DateTime( Free Text in Aprima) URINALYSIS NONAUTO W/O SCOPE 85606 Blood DateTime(Free Text in Aprima) URINALYSIS NONAUTO W/O SCOPE 21199 Bilirubin DateTime( Free Text in Aprima) URINALYSIS NONAUTO W/O SCOPE 33481 Ketones DateTime( Free Text in Aprima) URINALYSIS NONAUTO W/O SCOPE 10464 Urobilinogen DateTime (Free Text in Aprima) URINALYSIS NONAUTO W/O SCOPE 63508 Nitrite DateTime( Free Text in Aprima) URINALYSIS NONAUTO W/O SCOPE 69380 Leukocytes DateTime( Free Text in Aprima) UA 61531 Specific [place] 1.020 DateTime(Free Text in Aprima ) UA 27982 PH 6 DateTime(Free Text in ) UA 40443 GLUCOSE neg DateTime(Free Text in ) UA 88853 Protein neg DateTime(Free Text in Apr) UA 71584 Blood neg DateTime(Free Text in Apr) UA 95565 Bilirubin neg DateTime(Free Text in Aprima) UA 91492 Ketones neg DateTime(Free Text in Aprima) UA 14552 Urobilinogen neg DateTime(Free Text in Apr) UA 83081 Nitrite neg DateTime(Free Text in Apr) UA 02374 Leukocytes neg DateTime(Free Text in Apr) BMI 98465-6 39.7 DateTime(Free Text in ) Blood Pressure 1 8480-6 DateTime(Free Text in ) Weight (kg) DateTime(Free Text in ) Height (cm) DateTime(Free Text in ) Heart Rate 1 DateTime(Free Text in ) SpO2 DateTime(Free Text in ) Review of Systems System Result Effective Dates Constitutional recent illness 05/16/2018 Constitutional anorexia 05/16/2018 [...] nourished 11/27/2017 None Full Exam - General 1995 Eyes conjunctiva /eyelids Overall: conjunctiva clear 11/27/2017 [...] clear 11/27/2017 None Full Exam - General 1995 Ears/Nose/Throat [...] yes 01/16/2017 None Full Exam - General 1995 Psychiatric orientation/consciousness Level of consciousness: alert 01/16/2017 [...] exam 04/15/2014 None Full Exam - General 1995 Ears/Nose/Throat otoscopic exam External auditory canal: partial cerumen occlusion 04/15/2014 None Full Exam - General 1994 Ears/Nose/Throat otoscopic exam Tympanic membrane: a normal exam 04/15/2014 None Full Exam - General 1995 Ears/Nose/Throat [...] masses 01/27/2014 None Full Exam - General 1995 Ears/Nose/Throat external ear Overall: normal mastoids 01/27/2014 None Full Exam - General 1994 Ears/Nose/Throat otoscopic exam External auditory canal: a normal exam 01/27/2014 None Full Exam - General 1995 [...] 2+ 01/27/2014 None Full Exam - General 1994 Cardiovascular extremities Edema present: to leg 01/27/2014 [...] exam 01/27/2014 None Full Exam - General 1995 Neurologic mental status Overall: alert 01/27/2014 None [...] appearance 09/20/2013 None Full Exam - General 1995 Ears/Nose/Throat external ear Overall: no masses 09/20/2013 None Full Exam - General 1994 Ears/Nose/Throat external ear Overall: normal mastoids 09/20/2013 None Full Exam - General 1994 Ears/Nose/Throat otoscopic exam External auditory canal: a normal exam 09/20/2013 None Full Exam - General 1995 Ears/Nose/Throat otoscopic exam External auditory canal: partial cerumen occlusion 09/20/2013 None Full Exam - General 1995 Ears/Nose/Throat otoscopic exam Tympanic membrane: a normal exam 09/20/2013 None Full Exam - General 1995 Ears/Nose/Throat [...] exam 09/10/2013 None Full Exam - General 1995 Ears/Nose/Throat otoscopic exam External auditory canal: partial cerumen occlusion 09/10/2013 None Full Exam - General 1994 Ears/Nose/Throat otoscopic exam Tympanic membrane: a normal exam 09/10/2013 None Full Exam - General 1995 Ears/Nose/Throat [...] gingiva 08/19/2013 None Full Exam - General 1994 Ears/Nose/Throat lips/teeth/gingiva Overall: no masses 08/19/2013 None [...] appearance 06/10/2013 None Full Exam - General 1995 Ears/Nose/Throat external ear Overall: no masses 06/10/2013 None Full Exam - General 1995 Ears/Nose/Throat external ear Overall: normal mastoids 06/10/2013 None Full Exam - General 1994 Ears/Nose/Throat otoscopic exam External auditory canal: a normal exam 06/10/2013 None Full Exam - General 1995 [...] masses 05/07/2013 None Full Exam - General 1995 Ears/Nose/Throat external ear Overall: normal mastoids 05/07/2013 [...] lymphadenopathy 05/07/2013 None Full Exam - General 1995 Neurologic mental status Overall: alert 05/07/2013 None Full Exam - General 1994 Neurologic mental status Overall: oriented 05/07/2013 None Full Exam - General 1994 Psychiatric orientation/consciousness Oriented to person: yes 05/07/2013 None Full Exam - General 1995 Psychiatric orientation/consciousness Oriented to place: yes 05/07/2013 [...] masses 04/16/2013 None Full Exam - General 1994 Ears/Nose/Throat external ear Overall: normal mastoids 04/16/2013 None Full Exam - General 1995 Ears/Nose/Throat otoscopic exam External auditory canal: a normal exam 04/16/2013 None Full Exam - General 1995 Ears/Nose/Throat otoscopic exam External auditory canal: partial cerumen occlusion 04/16/2013 None Full Exam - General 1994 [...] retractions 04/16/2013 None Full Exam - General 1995 Respiratory respiratory effort/rhythm Overall: normal rate 04/16/2013 [...] masses 02/12/2013 None Full Exam - General 1994 Ears/Nose/Throat lips/teeth/gingiva Overall: normal dentition 02/12/2013 None [...] visualized 02/04/2013 None Full Exam - General 1994 Ears/Nose/Throat internal nose Overall: bilateral nasal cavities clear 02/04/2013 None Full Exam - General 1994 Ears/Nose/Throat internal nose Turbinates: erythema 02/04/2013 None Full Exam - General 1994 Ears/Nose/Throat internal nose Drainage: clear 02/04/2013 None [...] rate 02/04/2013 None Full Exam - General 1995 Cardiovascular auscultation of heart Overall: normal heart sounds 02/04/2013 tachycardia Full Exam - General 1994 Cardiovascular auscultation of heart Overall: no murmurs 02/04/2013 None Full Exam - General 1994 Lymphatic neck nodes Overall: shotty lymphadenopathy 02/04/2013 None Full Exam - General 1995 Neurologic mental status Overall: alert 02/04/2013 None Full Exam - General 1995 Neurologic mental status Overall: oriented 02/04/2013 None [...] level 01/17/2013 None Full Exam - General 1994 [...] pitting 01/17/2013 None Full Exam - General 1995 Cardiovascular extremities Edema present: bilateral 01/17/2013 None Full Exam - General 1995 Cardiovascular [...] 01/17/2013 None Full Exam - General 1995 Abdomen abdominal exam Contour: rounded 01/17/2013 None Full Exam - General 1995 Abdomen [...] clear 12/31/2012 None Full Exam - General 1995 Respiratory auscultation Overall: breath sounds clear bilaterally 12/31/2012 None Full Exam - General 1995 Respiratory auscultation Basilar: diminished 12/31/2012 None Full Exam - General 1995 Respiratory respiratory effort/rhythm Overall: no retractions 12/31/2012 None Full Exam - General 1995 Respiratory respiratory effort/rhythm Overall: normal rate 12/31/2012 None Full Exam - General 1995 Cardiovascular extremities Edema present: pitting 12/31/2012 None Full Exam - General 1995 Cardiovascular extremities Edema present: severity 1+ - 4 +: _ 12/31/2012 None Full Exam - General 1995 Cardiovascular extremities Edema present: bilateral 12/31/2012 None Full Exam - General 1995 Cardiovascular extremities Edema present: to knees 12/31/2012 None Full Exam - General 1995 Cardiovascular [...] at the base Full Exam - General 1994 Neurologic deep tendon reflexes Overall: deep tendon reflexes intact 12/31/2012 None Full Exam - General 1994 Neurologic [...] with fissue noted Full Exam - General 1995 Constitutional general appearance Development: well developed 12/20/2012 None Full Exam - General 1994 Constitutional general appearance Development: appears stated age 0812/20/2012 None Full Exam - General 1994 Eyes conjunctiva /eyelids Overall: conjunctiva clear 12/20/2012 None Full Exam - General 1994 Eyes pupils and irises Overall: pupils equal, round, reactive to light and accomodation 12/20/2012 None Full Exam - General 1995 Ears/Nose/Throat otoscopic exam External auditory canal: a normal exam 12/20/2012 None Full Exam - General 1995 Ears/Nose/Throat [...] rhythm 12/20/2012 None Full Exam - General 1994 Cardiovascular auscultation of heart S1: a normal exam 12/20/2012 None Full Exam - General 1994 Cardiovascular auscultation of heart S2: a normal exam 12/20/2012 None Full Exam - General 1994 Abdomen abdominal exam Contour: rounded 12/20/2012 None Full Exam - General 1994 Abdomen [...] 12/20/2012 None Full Exam - General 1995 Psychiatric orientation/consciousness Overall: oriented to person, place and time 12/20/2012 None Full Exam - General 1994 Psychiatric mood and affect Mood: depressed 12/20/2012 None Full Exam - General 1994 Psychiatric mood and affect Affect: mood congruent 12/20/2012 None Full Exam - General 1994 Psychiatric mood and affect Appropriateness: appropriate emotional responses 12/20/2012 None Full Exam - General 1995 Ears/Nose/Throat otoscopic exam Tympanic membrane: air- fluid level 12/20/2012 None Full Exam - General 1994 Respiratory auscultation Basilar: diminished 12/20/2012 None Full Exam - General 1994 Integument inspection of skin Location: left leg 12/20/2012 None Full Exam - General 1995 Integument inspection of skin Rash/Lesions: ulceration 12/20/2012 [...] General 1994 Ears/Nose/Throat internal nose Turbinates: erythema 10/29/2012 None Full Exam - General 1995 Ears/Nose/Throat internal nose Drainage: clear 10/29/2012 None Full Exam - General 1995 Respiratory auscultation Overall: breath sounds clear bilaterally 10/29/2012 None Full Exam - General 1995 Respiratory respiratory effort/rhythm Overall: no retractions 10/29/2012 None Full Exam - General 1995 Respiratory respiratory effort/rhythm Overall: normal rate 10/29/2012 None Full Exam - General 1995 Cardiovascular auscultation of heart Overall: regular rate 10/29/2012 None Full Exam - General 1995 Cardiovascular auscultation of heart Overall: normal heart sounds 10/29/2012 tachycardia Full Exam - General 1995 Cardiovascular auscultation of heart Overall: no murmurs 10/29/2012 None Full Exam - General 1995 Lymphatic neck nodes Overall: shotty lymphadenopathy 10/29/2012 None Full Exam - General 1995 Neurologic mental status Overall: alert 10/29/2012 None Full Exam - General 1995 Neurologic mental status Overall: oriented 10/29/2012 None [...] congruent 09/06/2012 None Full Exam - General 1995 Psychiatric mood and affect Appropriateness: appropriate emotional responses 09/06/2012 None Full Exam - General 1995 Constitutional general appearance Development: well developed 08/23/2012 None Full Exam - General 1995 Constitutional general appearance Development: appears stated age 0408/23/2012 None Full Exam - General 1995 Eyes conjunctiva /eyelids Overall: conjunctiva clear 08/23/2012 None Full Exam - General 1995 Eyes pupils and irises Overall: pupils equal, round, reactive to light and accomodation 08/23/2012 None Full Exam - General 1995 Ears/Nose/Throat oral cavity/pharynx/larynx Overall: oral mucosa clear 08/23/2012 None Full Exam - General 1995 Respiratory [...] responses 08/23/2012 None Full Exam - General 1995 Ears/Nose/Throat otoscopic exam External auditory canal: a normal exam 08/23/2012 None Full Exam - General 1995 Ears/Nose/Throat [...] occlusion 08/13/2012 None Full Exam - General 1995 Ears/Nose/Throat [...] retractions 06/07/2012 None Full Exam - General 1994 Respiratory respiratory effort/rhythm Overall: normal rate 06/07/2012 None Full Exam - General 1994 Cardiovascular extremities Edema present: pitting 06/07/2012 trace [...] 06/07/2012 None Full Exam - General 1995 Psychiatric orientation/consciousness Overall: oriented to person, place and time 06/07/2012 None Full Exam - General 1995 Psychiatric mood and affect Mood: anxious 06/07/2012 None Full Exam - General 1995 Psychiatric mood and affect Affect: mood congruent 06/07/2012 None Full Exam - General 1995 Psychiatric mood and affect Appropriateness: appropriate emotional responses 06/07/2012 None Full Exam - General 1995 Constitutional general appearance Development: well developed 05/28/2012 [...] Slight redness Full Exam - General 1994 Respiratory respiratory effort/rhythm Overall: normal rate 05/17/2012 [...] congruent 05/17/2012 None Full Exam - General 1995 Constitutional general appearance Development: well developed 05/17/2012 [...] rate 02/15/2012 None Full Exam - General 1995 Cardiovascular extremities Edema present: pitting 02/15/2012 None Full Exam - General 1995 Cardiovascular extremities Edema present: severity 1+ - 4 +: _ 02/15/2012 None Full Exam - General 1994 Cardiovascular extremities Edema present: bilateral 02/15/2012 None Full Exam - General 1994 Cardiovascular extremities Edema present: to knees 02/15/2012 None Full Exam - General 1995 Cardiovascular [...] masses 11/30/2011 None Full Exam - General 1995 Respiratory [...] 1995 Ears/Nose/Throat oral cavity/pharynx/larynx Overall: no masses 11/17/2011 [...] sounds 10/24/2011 None Full Exam - General 1995 Lymphatic [...] occlusion 09/26/2011 None Full Exam - General 1995 Ears/Nose/Throat [...] occlusion 09/20/2011 None Full Exam - General 1995 Ears/Nose/Throat [...] 1994 Ears/Nose/Throat external ear Overall: normal mastoids 09/01/2011 None Full Exam - General 1994 Ears/Nose/Throat otoscopic exam External auditory canal: a normal exam 09/01/2011 None Full Exam - General 1994 Ears/Nose/Throat otoscopic exam External auditory canal: partial cerumen occlusion 09/01/2011 None Full Exam - General 1994 Ears/Nose/Throat otoscopic exam Tympanic membrane: a normal exam 09/01/2011 None Full Exam - General 1994 [...] visualized 08/15/2011 None Full Exam - General 1995 Ears/Nose/Throat external ear Overall: no masses 08/15/2011 None Full Exam - General 1995 Ears/Nose/Throat external ear Overall: normal appearance 08/15/2011 None Full Exam - General 1995 Ears/Nose/Throat external ear Overall: normal mastoids 08/15/2011 None Full Exam - General 1995 Ears/Nose/Throat internal nose Overall: bilateral nasal cavities clear 08/15/2011 None Full Exam - General 1995 Ears/Nose/Throat internal nose Turbinates: erythema 08/15/2011 None Full Exam - General 1995 Ears/Nose/Throat internal nose Drainage: clear 08/15/2011 None Full Exam - General 1995 Ears/Nose/Throat lips/teeth/gingiva Overall: benign lips 08/15/2011 None [...] level 08/01/2011 None Full Exam - General 1994 [...] nourished 06/20/2011 None Full Exam - General 1994 Constitutional general appearance Overall: well developed 06/20/2011 [...] clear 06/20/2011 None Full Exam - General 1995 [...] Date GLUC MONITOR CONT PHYS I&R CPT-4: 50941 04/27/2018 URINALYSIS NONAUTO W/O SCOPE CPT-4: 29919 04/10/2018 GLUCOSE MONITORING CONT CPT-4: 12813 04/10/2018 OCCULT BLOOD FECES CPT -4: 38524 02/22/2018 URINALYSIS NONAUTO W/O SCOPE CPT-4: 51104 02/20/2018 URINALYSIS NONAUTO W/O SCOPE CPT-4: 26468 12/14/2017 URINALYSIS NONAUTO W/O SCOPE CPT-4: 90800 11/27/2017 PPPS, SUBSEQ VISIT CPT -4: G0439 10/27/2017 GLUCOSE MONITORING CONT CPT-4: 32063 09/27/2017 URINALYSIS NONAUTO W/O SCOPE CPT-4: 52144 06/30/2017 URINALYSIS NONAUTO W/O SCOPE CPT-4: 81883 11/25/2016 URINALYSIS NONAUTO W/O SCOPE CPT-4: 88082 10/21/2016 URINALYSIS NONAUTO W/O SCOPE CPT-4: 81931 06/24/2016 URINALYSIS NONAUTO W/O SCOPE CPT-4: 49022 04/11/2016 ADMIN PNEUMOCOCCAL VACCINE SNOMED CT: [id number] CPT-4: G0009 02/26/2016 PNEUMOCOCCAL VACC 13 ANURADHA IM Formatting Model/CDA Sections, Assigned to/Jada Velazquez SNOMED CT: [id number] CPT-4: 07111Zuevgrv 02/26/2016 URINALYSIS NONAUTO W/O SCOPE CPT-4: 94677 02/10/2016 URINALYSIS NONAUTO W/O SCOPE CPT-4: 42592 11/27/2015 URINALYSIS NONAUTO W/O SCOPE CPT-4: 86283 11/02/2015 INITIAL PREVENTIVE EXAM CPT-4: G0402 09/29/2015 URINALYSIS NONAUTO W/O SCOPE CPT-4: 59796 07/20/2015 TRIAMCINOLONE ACET INJ NOS CPT-4: J3301 06/26/2015 URINALYSIS NONAUTO W/O SCOPE CPT-4: 10344 11/05/2014 URINALYSIS NONAUTO W/O SCOPE CPT-4: 45940 04/21/2014 CULTURE AEROBIC IDENTIFY CPT-4: 65600 12/12/2013 URINALYSIS NONAUTO W/O SCOPE CPT-4: 74867 11/18/2013 ROUTINE VENIPUNCTURE CPT-4: 97932 09/10/2013 ROUTINE VENIPUNCTURE CPT-4: 30634 08/01/2013 URINALYSIS NONAUTO W/O SCOPE CPT-4: 85696 06/28/2013 TRIAMCINOLONE ACET INJ NOS CPT-4: J3301 05/07/2013 DRAIN/INJECT JOINT/BURSA CPT-4: 31933 05/07/2013 ROUTINE VENIPUNCTURE CPT-4: 37232 03/21/2013 ROUTINE VENIPUNCTURE CPT-4: 50405 01/17/2013 URINALYSIS NONAUTO W/O SCOPE CPT-4: 91712 01/01/2013 ROUTINE VENIPUNCTURE CPT-4: 01165 12/31/2012 ROUTINE VENIPUNCTURE CPT-4: 82355 12/20/2012 URINALYSIS NONAUTO W/O SCOPE CPT-4: 77670 11/05/2012 DRAIN/INJECT JOINT/BURSA CPT-4: 50937 09/21/2012 TRIAMCINOLONE ACET INJ NOS CPT-4: J3301 09/21/2012 URINALYSIS NONAUTO W/O SCOPE CPT-4: 22384 07/19/2012 TRIAMCINOLONE ACET INJ NOS CPT-4: J3301 07/06/2012 Pneumococcal Polysaccharide Vaccine, 23-Valent, Ad CPT-4: 54235 06/07/2012 IMMUNIZATION ADMIN CPT -4: 13386 06/07/2012 TRIAMCINOLONE ACET INJ NOS CPT-4: J3301 05/02/2012 ROUTINE VENIPUNCTURE CPT-4: 42976 02/01/2012 URINALYSIS NONAUTO W/O SCOPE CPT-4: 93594 02/01/2012 TRIAMCINOLONE ACET INJ NOS CPT-4: J3301 12/14/2011 INJ TRIGGER POINT 1/2 MUSCL CPT-4: 30194 12/14/2011 PROMETHAZINE HCL INJECTION CPT-4: J2550 11/30/2011 ROUTINE VENIPUNCTURE CPT-4: 96209 11/30/2011 TRIAMCINOLONE ACET INJ NOS CPT-4: J3301 08/01/2011 DRAIN/INJECT JOINT/BURSA CPT-4: 77400 08/01/2011 THER/PROPH/DIAG INJ SC/IM CPT-4: 37817 04/18/2011 TRIAMCINOLONE ACET INJ NOS CPT-4: J3301 04/18/2011 Vital Signs Date Vital 05/16/2018 BMI: 39.7 Code: 58067-9 Heart Rate 1: 82 bpm Height: 5'2" SpO2: 99% Temperature: 35.8 (C) / 96.5 (F) Weight: 217 lbs 04/27/2018 Blood Pressure 1: 122/54 Code : 8480-6 BMI: 39.7 Code : 26160-1 Heart Rate 1 : 84 bpm Height: 5'2" SpO2: 92% 04/10/2018 Blood Pressure 1: 120/68 Code : 8480-6 BMI: 39.7 Code : 32914-6 Heart Rate 1 : 87 bpm Height: 5'2" SpO2: 99% Weight: 217 lbs 03/12/2018 Blood Pressure 1: 140/70 Code : 8480-6 BMI: 40.2 Code : 74328-5 Heart Rate 1 : 78 bpm Height: 5'2" SpO2: 98% Weight: 220 lbs 02/20/2018 Blood Pressure 1: 140/70 Code : 8480-6 BMI: 40.2 Code : 54808-3 Heart Rate 1 : 96 bpm Height: 5'2" SpO2: 93% Weight: 220 lbs 11/27/2017 Blood Pressure 1: 158/78 Code : 8480-6 BMI: 40.8 Code : 84393-1 Heart Rate 1 : 100 bpm Height: 5'2" SpO2: 95% Weight: 223 lbs 10/27/2017 Blood Pressure 1: 146/70 Code : 8480-6 BMI: 41.3 Code : 99111-1 Heart Rate 1 : 82 bpm Height: 5'2" SpO2: 99% Waist Measure (cm): 119 cm Weight: 226 lbs 09/15/2017 Blood Pressure 1: 136/66 Code : 8480-6 BMI: 41.5 Code : 92688-4 Heart Rate 1 : 94 bpm Height: 5'2" SpO2: 96% Weight: 227 lbs 08/18/2017 Blood Pressure 1: 120/68 Code : 8480-6 BMI: 41.5 Code : 82798-1 Heart Rate 1 : 87 bpm Height: 5'2" SpO2: 94% Weight: 227 lbs 08/03/2017 Blood Pressure 1: 132/72 Code : 8480-6 BMI: 41.5 Code : 07813-7 Heart Rate 1 : 93 bpm Height: 5'2" SpO2: 95% Weight: 227 lbs 07/27/2017 Blood Pressure 1: 128/84 Code : 8480-6 BMI: 41.5 Code : 71408-4 Heart Rate 1 : 91 bpm Height: 5'2" SpO2: 98% Weight: 227 lbs 06/13/2017 Blood Pressure 1: 136/84 Code : 8480-6 BMI: 42.6 Code : 47791-6 Heart Rate 1 : 91 bpm Height: 5'2" SpO2: 94% Weight: 233 lbs 04/21/2017 Blood Pressure 1: 142/84 Code : 8480-6 BMI: 42.8 Code : 82844-1 Heart Rate 1 : 89 bpm Height: 5'2" SpO2: 94% Weight: 234 lbs 04/18/2017 Blood Pressure 1: 140/86 Code : 8480-6 BMI: 42.8 Code : 87166-4 Heart Rate 1 : 89 bpm Height: 5'2" SpO2: 97% Weight: 234 lbs 03/27/2017 Blood Pressure 1: 148/76 Code : 8480-6 BMI: 42.6 Code : 88022-4 Heart Rate 1 : 92 bpm Height: [...] Code : 8480-6 BMI: 44.3 Code : 59621-5 Heart Rate 1 : 90 bpm Height: 5'2" SpO2: 96% Weight: 242 lbs 01/30/2017 Blood Pressure 1: 132/72 Code : 8480-6 Heart Rate 1: 97 bpm Height: 5'2" SpO2: 96% Weight: 01/16/2017 Blood Pressure 1: 138/76 Code : 8480-6 BMI: 43.3 Code : 12079-6 Heart Rate 1 : 84 bpm Height: 5'2" SpO2: 99% Weight: 237 lbs 12/13/2016 Blood Pressure 1: 144/78 Code : 8480-6 Heart Rate 1: 96 bpm Height: 5'2" SpO2: 98% Temperature: 36.6 (C) / 97.9 (F) Weight: 11/11/2016 Blood Pressure 1: 144/80 Code : 8480-6 BMI: 43.0 Code : 01834-4 Heart Rate 1 : 89 bpm Height: 5'2" SpO2: 94% Temperature: 36.1 (C) / 97.0 (F) Weight: 235 lbs 10/28/2016 Blood Pressure 1: 156/82 Code : 8480-6 BMI: 43.9 Code : 49044-3 Heart Rate 1 : 78 bpm Height: [...] Code : 8480-6 BMI: 42.4 Code : 74346-5 Heart Rate 1 : 95 bpm Height: 5'2" SpO2: 98% Weight: 232 lbs 08/09/2016 Blood Pressure 1: 138/80 Code : 8480-6 BMI: 41.0 Code : 48094-6 Heart Rate 1 : 98 bpm Height: 5'2" SpO2: 97% Weight: 224 lbs 07/26/2016 Blood Pressure 1: 148/82 Code : 8480-6 BMI: 42.4 Code : 69846-7 Heart Rate 1 : 89 bpm Height: 5'2" SpO2: 97% Weight: 232 lbs 05/24/2016 Blood Pressure 1: 146/72 Code : 8480-6 BMI: 42.4 Code : 48754-7 Heart Rate 1 : 89 bpm Height: 5'2" SpO2: 99% Weight: 232 lbs 04/19/2016 Blood Pressure 1: 130/88 Code : 8480-6 BMI: 42.4 Code : 99180-9 Heart Rate 1 : 88 bpm Height: 5'2" SpO2: 98% Weight: 232 lbs 04/11/2016 Blood Pressure 1: 140/80 Code : 8480-6 BMI: 41.7 Code : 82852-5 Heart Rate 1 : 97 bpm Height: 5'2" SpO2: 95% Weight: 228 lbs 03/21/2016 Blood Pressure 1: 138/80 Code : 8480-6 BMI: 44.4 Code : 66545-0 Height: 5'2" Weight: 243 lbs 03/11/2016 Blood Pressure 1: 138/82 Code : 8480-6 BMI: 44.4 Code : 24515-6 Heart Rate 1 : 86 bpm Height: 5'2" SpO2: 95% Weight: 243 lbs 02/26/2016 Blood Pressure 1: 130/82 Code : 8480-6 BMI: 43.9 Code : 52341-7 Heart Rate 1 : 86 bpm Height: 5'2" SpO2: 97% Weight: 240 lbs 02/02/2016 Blood Pressure 1: 136/86 Code : 8480-6 Heart Rate 1: 56 bpm Height: SpO2: 96% Weight: 12/17/2015 Blood Pressure 1: 140/80 Code : 8480-6 BMI: 40.2 Code : 75397-7 Heart Rate 1 : 100 bpm Height: 5'2" SpO2: 99% Weight: 220 lbs 12/08/2015 Blood Pressure 1: 132/86 Code : 8480-6 Heart Rate 1: 100 bpm Height: SpO2: 97% Weight: 11/27/2015 Blood Pressure 1: 128/82 Code : 8480-6 BMI: 39.3 Code : 89664-8 Heart Rate 1 : 112 bpm Height: 5'2" SpO2: 96% Weight: 215 lbs 11/12/2015 Blood Pressure 1: 168/88 Code : 8480-6 Heart Rate 1: 106 bpm Height: 5'2" SpO2: 96% Weight: 11/10/2015 Blood Pressure 1: 156/80 Code : 8480-6 Heart Rate 1: 94 bpm Height: 5'2" SpO2: 96% Weight: 10/27/2015 Blood Pressure 1: 142/76 Code : 8480-6 BMI: 40.8 Code : 96989-1 Heart Rate 1 : 86 bpm Height: 5'2" SpO2: 97% Weight: 223 lbs 09/29/2015 Blood Pressure 1: 132/88 Code : 8480-6 BMI: 41.7 Code : 39175-3 Heart Rate 1 : 104 bpm Height: 5'2" SpO2: 94% Weight: 228 lbs 09/22/2015 Blood Pressure 1: 130/80 Code : 8480-6 BMI: 41.7 Code : 70511-5 Heart Rate 1 : 89 bpm Height: 5'2" SpO2: 97% Weight: 228 lbs 09/01/2015 Blood Pressure 1: 138/88 Code : 8480-6 BMI: 40.6 Code : 28508-8 Heart Rate 1 : 95 bpm Height: 5'2" SpO2: 95% Weight: 222 lbs 08/10/2015 Blood Pressure 1: 140/82 Code : 8480-6 BMI: 41.0 Code : 91180-0 Heart Rate 1 : 84 bpm Height: 5'2" SpO2: 97% Weight: 224 lbs 06/26/2015 Blood Pressure 1: 152/72 Code : 8480-6 BMI: 41.2 Code : 20984-3 Heart Rate 1 : 92 bpm Height: 5'2" SpO2: 96% Weight: 225 lbs 04/14/2015 Blood Pressure 1: 158/86 Code : 8480-6 BMI: 41.2 Code : 85174-1 Heart Rate 1 : 63 bpm Height: 5'2" SpO2: 93% Weight: 225 lbs 03/03/2015 Blood Pressure 1: 152/80 Code : 8480-6 BMI: 40.1 Code : 23914-3 Heart Rate 1 : 101 bpm Height: 5'2" SpO2: 97% Weight: 219 lbs 01/15/2015 Blood Pressure 1: 127/76 Code : 8480-6 BMI: 40.6 Code : 60522-4 Heart Rate 1 : 109 bpm Height: 5'2" SpO2: 97% Weight: 222 lbs 01/01/2015 Blood Pressure 1: 136/64 Code : 8480-6 BMI: 40.4 Code : 10174-6 Heart Rate 1 : 94 bpm Height: 5'2" SpO2: 96% Weight: 221 lbs 12/25/2014 Blood Pressure 1: 146/80 Code : 8480-6 Heart Rate 1: 95 bpm Height: 5'2" SpO2: 94% 11/04/2014 Blood Pressure 1: 110/70 Code : 8480-6 BMI: 40.2 Code : 87348-4 Heart Rate 1 : 878 bpm Height: 5'2" SpO2: 97% Weight: 220 lbs 09/08/2014 Blood Pressure 1: 142/78 Code : 8480-6 BMI: 39.5 Code : 83284-5 Heart Rate 1 : 97 bpm Height: 5'2" SpO2: 98% Weight: 216 lbs 08/29/2014 Blood Pressure 1: 140/90 Code : 8480-6 Blood Pressure 2: 120/70 Code: 8480-6 BMI: 40.2 Code: 63832-7 Heart Rate 1: 88 bpm Height: 5'2" Weight: 220 lbs 06/30/2014 Blood Pressure 1: 132/74 Code : 8480-6 BMI: 39.1 Code : 92400-3 Heart Rate 1 : 76 bpm Height: 5'2" Weight: 214 lbs 06/12/2014 Blood Pressure 1: 118/76 Code : 8480-6 BMI: 40.4 Code : 55696-6 Heart Rate 1 : 86 bpm Height: 5'2" SpO2: 96% Weight: 221 lbs 05/26/2014 Blood Pressure 1: 128/78 Code : 8480-6 BMI: 39.5 Code : 81065-7 Heart Rate 1 : 76 bpm Height: 5'2" Weight: 216 lbs 04/15/2014 Blood Pressure 1: 144/72 Code : 8480-6 BMI: 40.8 Code : 61142-6 Heart Rate 1 : 60 bpm Height: 5'2" Weight: 223 lbs 03/25/2014 Blood Pressure 1: 118/72 Code : 8480-6 BMI: 41.2 Code : 57414-4 Heart Rate 1 : 80 bpm Height: 5'2" Weight: 225 lbs 03/03/2014 Blood Pressure 1: 138/86 Code : 8480-6 BMI: 41.5 Code : 06214-6 Heart Rate 1 : 104 bpm Height: 5'2" Temperature: 36.1 (C) / 97.0 (F) Weight: 227 lbs 02/13/2014 Blood Pressure 1: 142/88 Code : 8480-6 BMI: 40.8 Code : 67630-0 Heart Rate 1 : 88 bpm Height: 5'2" Weight: 223 lbs 01/27/2014 Blood Pressure 1: 124/68 Code : 8480-6 BMI: 39.9 Code : 04444-9 Heart Rate 1 : 89 bpm Height: 5'2" SpO2: 94% Weight: 218 lbs 12/26/2013 Blood Pressure 1: 108/52 Code : 8480-6 BMI: 41.2 Code : 07240-8 Heart Rate 1 : 96 bpm Height: 5'2" Weight: 225 lbs 12/12/2013 Blood Pressure 1: 158/88 Code : 8480-6 BMI: 42.6 Code : 49974-0 Heart Rate 1 : 80 bpm Height: 5'2" Weight: 233 lbs 11/14/2013 Blood Pressure 1: 120/60 Code : 8480-6 BMI: 42.4 Code : 96421-0 Heart Rate 1 : 96 bpm Height: 5'2" Temperature: 5423.3 (C ) / 9794.0 (F) Weight: 232 lbs 10/21/2013 Blood Pressure 1: 100/60 Code : 8480-6 BMI: 41.9 Code : 62423-5 Heart Rate 1 : 96 bpm Height: 5'2" Weight: 229 lbs 10/03/2013 Blood Pressure 1: 122/72 Code : 8480-6 BMI: 42.3 Code : 71146-6 Heart Rate 1 : 84 bpm Height: 5'2" Weight: 231 lbs 09/27/2013 Blood Pressure 1: 112/58 Code : 8480-6 Heart Rate 1: 72 bpm SpO2: 93% Temperature: 36.2 (C) / 97.1 (F) Weight: 09/23/2013 Blood Pressure 1: 108/76 Code : 8480-6 BMI: 42.4 Code : 08601-9 Heart Rate 1 : 95 bpm Height: 5'2" SpO2: 96% Weight: 232 lbs 09/20/2013 Blood Pressure 1: 150/88 Code : 8480-6 BMI: 42.4 Code : 53254-4 Heart Rate 1 : 104 bpm Height: 5'2" Weight: 232 lbs 09/10/2013 Blood Pressure 1: 112/62 Code : 8480-6 Heart Rate 1: 88 bpm Weight: 238 lbs 08/19/2013 Blood Pressure 1: 102/58 Code : 8480-6 BMI: 43.7 Code : 30456-9 Heart Rate 1 : 80 bpm Height: 5'2" Weight: 239 lbs 08/12/2013 Blood Pressure 1: 110/60 Code : 8480-6 BMI: 43.3 Code : 56487-5 Heart Rate 1 : 90 bpm Height: 5'2" SpO2: 96% Weight: 236 lbs 8 oz 08/01/2013 Blood Pressure 1: 128/72 Code : 8480-6 BMI: 42.6 Code : 35438-1 Heart Rate 1 : 78 bpm Height: 5'2" SpO2: 97% Weight: 233 lbs 07/19/2013 Blood Pressure 1: 100/60 Code : 8480-6 BMI: 44.3 Code : 41248-7 Heart Rate 1 : 92 bpm Height: 5'2" Temperature: 36.2 (C) / 97.2 (F) Weight: 242 lbs 07/15/2013 Blood Pressure 1: 180/92 Code : 8480-6 Heart Rate 1: 115 bpm SpO2: 98% Weight: 06/27/2013 Blood Pressure 1: 114/64 Code : 8480-6 BMI: 44.1 Code : 26853-8 Heart Rate 1 : 114 bpm Height: 5'2" SpO2: 93% Weight: 241 lbs 06/10/2013 Blood Pressure 1: 174/86 Code : 8480-6 BMI: 44.1 Code : 15529-1 Heart Rate 1 : 132 bpm Height: 5'2" SpO2: 94% Temperature: 35.6 (C) / 96.0 (F) Weight: 241 lbs 05/07/2013 Blood Pressure 1: 160/88 Code : 8480-6 BMI: 43.5 Code : 44142-5 Heart Rate 1 : 108 bpm Height: 5'2" SpO2: 96% Weight: 238 lbs 04/16/2013 Blood Pressure 1: 116/62 Code : 8480-6 BMI: 44.6 Code : 18113-2 Heart Rate 1 : 90 bpm Height: 5'2" SpO2: 94% Weight: 244 lbs 03/21/2013 Blood Pressure 1: 102/64 Code : 8480-6 BMI: 42.8 Code : 59948-8 Height: 5'2" Weight: 234 lbs 02/12/2013 Blood Pressure 1: 130/78 Code : 8480-6 BMI: 42.0 Code : 65377-2 Heart Rate 1 : 100 bpm Height: 5'2" Weight: 229 lbs 8 oz 02/04/2013 Blood Pressure 1: 126/68 Code : 8480-6 BMI: 44.3 Code : 55692-0 Heart Rate 1 : 88 bpm Height: 5'2" Weight: 242 lbs 01/17/2013 Blood Pressure 1: 132/76 Code : 8480-6 Heart Rate 1: 121 bpm SpO2: 97% Weight: 242 lbs 12/31/2012 Blood Pressure 1: 144/90 Code : 8480-6 BMI: 43.0 Code : 64437-4 Heart Rate 1 : 96 bpm Height: 5'2" Temperature: 36.2 (C) / 97.2 (F) Weight: 235 lbs 12/20/2012 Blood Pressure 1: 156/96 Code : 8480-6 BMI: 42.4 Code : 22012-8 Heart Rate 1 : 96 bpm Height: [...] Code : 8480-6 BMI: 38.8 Code : 34378-9 Heart Rate 1 : 96 bpm Height: 5'2" Temperature: 36.3 (C) / 97.3 (F) Weight: 212 lbs 08/23/2012 Blood Pressure 1: 116/72 Code : 8480-6 BMI: 38.3 Code : 19446-9 Heart Rate 1 : 92 bpm Height: 5'2" Weight: 209 lbs 8 oz 08/13/2012 Blood Pressure 1: 140/92 Code : 8480-6 BMI: 37.3 Code : 27185-6 Heart Rate 1 : 104 bpm Height: 5'2" Weight: 204 lbs 08/07/2012 Blood Pressure 1: 148/98 Code : 8480-6 BMI: 36.6 Code : 02974-7 Heart Rate 1 : 102 bpm Height: [...] Code : 8480-6 BMI: 35.3 Code : 79902-9 Heart Rate 1 : 105 bpm Height: [...] Name Status Result Effective Date Notes Location in the throat 05/16/2018 None Quality [...] december - she was seen by her obstetrics technician again in mid 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 She states that she saw her obstetrics technician and was to be started on another [...] bed when she was there with her , Jose skin lesion Frequency of Episodes unchanged [...] lesion Alleviating Factors medication 09/10/2013 went to [facility] and start on Cipro diabetes [...] differently. States she did eat BBQ from [employer] yesterday for lunch. 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 PATIENT, LEVEL IV Diagnosis: Essential (primary) hypertension[ICD10: I10] Diagnosis: Generalized anxiety disorder[ICD10: F41.1] [facility] CPT-4: 85624 05/16/2018 ([id number]) 18585 EST. PATIENT, LEVEL III Diagnosis: Cough[ICD10: R05] Diagnosis: Chronic maxillary sinusitis[ICD10: J32.0] Diagnosis: Type 2 diabetes mellitus with hyperglycemia[ICD10: E11.65] [facility] CPT-4: 76260 04/27/2018 [id number] 11629 EST. PATIENT, LEVEL IV Diagnosis: Essential (primary) hypertension[ICD10: I10] Diagnosis: Type 2 diabetes mellitus with hyperglycemia[ICD10: E11.65] Diagnosis: Generalized anxiety disorder[ICD10: F41.1] Diagnosis: Weakness[ICD10: R53.1] Rika Motta MD, [facility] CPT-4: 97635 04/10/2018 ([id number]) 71385 EST. PATIENT, LEVEL IV Diagnosis: Type 2 diabetes mellitus with hyperglycemia[ICD10: E11.65] Diagnosis: Low back pain[ICD10: M54.5] Diagnosis: Essential (primary) hypertension[ICD10: I10] Diagnosis: Generalized anxiety disorder[ICD10: F41.1] Rika Motta MD, [facility] CPT-4: 40238 03/12/2018 ([id number]) 24581 EST. PATIENT, LEVEL III Diagnosis: Type 2 diabetes mellitus with hyperglycemia[ICD10: E11.65] Diagnosis: Essential (primary) hypertension[ICD10: I10] Diagnosis: Dysuria[ICD10: R30.0] Diagnosis: Vitamin D deficiency, unspecified[ICD10: E55.9] Diagnosis: Low back pain[ICD10: M54.5] Rika Motta MD, [facility] CPT-4: 74585 02/20/2018 ([id number]) 96321 EST. PATIENT, LEVEL III Diagnosis: Dysuria[ICD10: R30.0] Diagnosis: Essential (primary) hypertension[ICD10: I10] Rika Motta MD, [facility] CPT-4: 45238 11/27/2017 ([id number]) 23999 EST. PATIENT, LEVEL III Diagnosis: Type 2 diabetes mellitus with hyperglycemia[ICD10: E11.65] Diagnosis: Chronic pain syndrome[ICD10: G89.4] Rika Motta MD, [facility] CPT-4: 05426 09/15/2017 ([id number]) 45601 EST. 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 PATIENT, LEVEL III Diagnosis: Chronic maxillary sinusitis[ICD10: J32.0] Diagnosis: Type 2 diabetes mellitus with hyperglycemia[ICD10: E11.65] Diagnosis: Hordeolum externum left upper eyelid[ICD10: H00.014] Rika Motta MD, [facility] CPT-4: 38951 08/03/2017 ([id number]) 62185 EST. PATIENT, LEVEL IV Diagnosis: Type 2 diabetes mellitus with hyperglycemia[ICD10: E11.65] Diagnosis: Hordeolum externum left upper eyelid[ICD10: H00.014] Diagnosis: Essential (primary) hypertension[ICD10: I10] Diagnosis: Chronic obstructive pulmonary disease, unspecified[ICD10: J44.9] Rika Motta MD, [facility] CPT-4: 72151 07/27/2017 ([id number]) 52048 EST. PATIENT, LEVEL IV Diagnosis: Type 2 diabetes mellitus with hyperglycemia[ICD10: E11.65] Diagnosis: Essential (primary) hypertension[ICD10: I10] Tessie Motta MD, [facility] CPT-4: 56969 06/13/2017 36432 EST. PATIENT, LEVEL IV Diagnosis: Periapical abscess without sinus[ICD10: K04.7] Arlette Motta MD, [facility] CPT-4: 26061 04/21/2017 ([id number]) 20286 EST. PATIENT, LEVEL IV Diagnosis: Type 2 diabetes mellitus with hyperglycemia[ICD10: E11.65] Diagnosis: Cellulitis of abdominal wall[ICD10: L03.311] Diagnosis: Chronic pain syndrome[ICD10: G89.4] Diagnosis: Essential (primary) hypertension[ICD10: I10] Diagnosis: Unsteadiness on feet[ICD10: R26.81] Rika Motta MD, [facility] CPT-4: 82025 04/18/2017 ([id number]) 43263 EST. PATIENT, LEVEL IV Diagnosis: Type 2 diabetes mellitus with hyperglycemia[ICD10: E11.65] Diagnosis: Hypokalemia[ICD10: E87.6] Diagnosis: Essential (primary) hypertension[ICD10: I10] Diagnosis: Paroxysmal atrial fibrillation[ICD10: I48.0] Rika Motta MD, [facility] CPT-4: 93771 03/27/2017 ([id number]) 25709 EST. PATIENT, LEVEL IV Diagnosis: Essential (primary) hypertension[ICD10: I10] Diagnosis: Type 2 diabetes mellitus with hyperglycemia[ICD10: E11.65] Diagnosis: Hypokalemia[ICD10: E87.6] Diagnosis: Generalized abdominal pain[ICD10: R10.84] Rika Motta MD, [facility] CPT-4: 65486 02/27/2017 ([id number]) 58262 EST. PATIENT, LEVEL III Diagnosis: Drug induced constipation[ICD10: K59.03] Rika Motta MD [facility] CPT-4: 29829 02/21/2017 ([id number]) 37509 EST. PATIENT, LEVEL IV Diagnosis: Generalized abdominal pain[ICD10: R10.84] Diagnosis: Hypokalemia[ICD10: E87.6] Diagnosis: Hypomagnesemia[ICD10: E83.42] Rika Motta MD, [facility] CPT-4: 27847 02/17/2017 ([id number]) 41022 EST. PATIENT, LEVEL IV Diagnosis: Paroxysmal atrial fibrillation[ICD10: I48.0] Diagnosis: Essential (primary) hypertension[ICD10: I10] Diagnosis: Chronic obstructive pulmonary disease, unspecified[ICD10: J44.9] Diagnosis: Type 2 diabetes mellitus with hyperglycemia[ICD10: E11.65] Diagnosis: Diarrhea, unspecified[ICD10: R19.7] Rika Motta MD, [facility] CPT-4: 31654 02/13/2017 ([id number]) 40927 EST. PATIENT, LEVEL IV Diagnosis: Type 2 diabetes mellitus with hyperglycemia[ICD10: E11.65] Diagnosis: Pain in right shoulder[ICD10: M25.511] Diagnosis: Chronic maxillary sinusitis[ICD10: J32.0] Rika Motta MD, [facility] CPT-4: 50143 01/30/2017 ([id number]) 93008 EST. PATIENT, LEVEL IV Diagnosis: Essential (primary) hypertension[ICD10: I10] Diagnosis: Type 2 diabetes mellitus with hyperglycemia[ICD10: E11.65] Diagnosis: Hypothyroidism, unspecified[ICD10: E03.9] Diagnosis: Generalized anxiety disorder[ICD10: F41.1] Diagnosis: Chronic pain syndrome[ICD10: G89.4] Diagnosis: Restless legs syndrome[ICD10: G25.81] Diagnosis: Obstructive sleep apnea (adult) (pediatric)[ICD10: G47.33] Rika Motta MD, [facility] CPT-4: 79856 01/16/2017 99608 EST. PATIENT, LEVEL IV Diagnosis: Other acute sinusitis[ICD10: J01.80] Diagnosis: Diplopia[ICD10: H53.2] Arlette Motta MD, [facility] CPT-4: 75132 12/13/2016 ([id number]) 14995 EST. PATIENT, LEVEL IV Diagnosis: Essential (primary) hypertension[ICD10: I10] Diagnosis: Fasciculation[ICD10: R25.3] Diagnosis: Generalized anxiety disorder[ICD10: F41.1] Diagnosis: Other obesity due to excess calories[ICD10: E66.09] Diagnosis: Zoster without complications[ICD10: B02.9] Diagnosis: Unilateral primary osteoarthritis, right knee[ICD10: M17.11] Diagnosis: Unsteadiness on feet[ICD10: R26.81] Rika Motta MD, [facility] CPT-4: 01657 11/11/2016 ([id number]) 90263 EST. PATIENT, LEVEL IV Diagnosis: Zoster without complications[ICD10: B02.9] Diagnosis: Type 2 diabetes mellitus with hyperglycemia[ICD10: E11.65] Diagnosis: Vomiting, unspecified[ICD10: R11.10] Rika Motta MD, [facility] CPT-4: 08908 10/28/2016 [id number]) 87292 EST. PATIENT, LEVEL III Diagnosis: Pain in right knee[ICD10: M25.561] Diagnosis: Zoster without complications[ICD10: B02.9] Rika Motta MD, [facility] CPT-4: 77117 10/13/2016 [id number]) 31544 EST. PATIENT, LEVEL IV Diagnosis: Acute recurrent maxillary sinusitis[ICD10: J01.01] Diagnosis: Low back pain[ICD10: M54.5] Diagnosis: Pain in right knee[ICD10: M25.561] Diagnosis: Allergic rhinitis due to pollen[ICD10: J30.1] Rika Motta MD, [facility] CPT-4: 55733 09/23/2016 ([id number]) 50578 EST. PATIENT, LEVEL IV Diagnosis: Pain in right shoulder[ICD10: M25.511] Diagnosis: Type 2 diabetes mellitus with hyperglycemia[ICD10: E11.65] Diagnosis: Cervicalgia[ICD10: M54.2] Diagnosis: Candidiasis of skin and nail[ICD10: B37.2] Diagnosis: Low back pain[ICD10: M54.5] Rika Motta MD, [facility] CPT-4: 77183 09/13/2016 ([id number]) 45760 EST. 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 PATIENT, LEVEL IV Diagnosis: Type 2 diabetes mellitus with hyperglycemia[ICD10: E11.65] Diagnosis: Candidiasis of skin and nail[ICD10: B37.2] Diagnosis: Chronic obstructive pulmonary disease, unspecified[ICD10: J44.9] Diagnosis: Paroxysmal atrial fibrillation[ICD10: I48.0] Diagnosis: Pneumonia, unspecified organism[ICD10: J18.9] Rika Motta MD, [facility] CPT-4: 40667 07/26/2016 ([id number]) 98914 EST. PATIENT, LEVEL IV Diagnosis: Type 2 diabetes mellitus with hyperglycemia[ICD10: E11.65] Diagnosis: Generalized anxiety disorder[ICD10: F41.1] Diagnosis: Essential (primary) hypertension[ICD10: I10] Diagnosis: Chronic pain syndrome[ICD10: G89.4] Rika Motta MD, [facility] CPT-4: 11543 05/24/2016 ([id number]) 69526 EST. PATIENT, LEVEL IV Diagnosis: Menopausal and female climacteric states[ICD10: N95.1] Diagnosis: Type 2 diabetes mellitus with hyperglycemia[ICD10: E11.65] Diagnosis: Generalized anxiety disorder[ICD10: F41.1] Rika Motta MD, [facility] CPT-4: 29404 04/19/2016 ([id number]) 45280 EST. PATIENT, LEVEL IV Diagnosis: Type 2 diabetes mellitus with hyperglycemia[ICD10: E11.65] Diagnosis: Generalized anxiety disorder[ICD10: F41.1] Diagnosis: Essential (primary) hypertension[ICD10: I10] Diagnosis: Dysuria[ICD10: R30.0] Rika Motta MD, [facility] CPT-4: 91046 04/11/2016 [id number]) 81303 EST. PATIENT, LEVEL IV Diagnosis: Generalized anxiety disorder[ICD10: F41.1] Diagnosis: Major depressive disorder, single episode, mild[ICD10: F32.0] Diagnosis: Hypothyroidism, unspecified[ICD10: E03.9] Diagnosis: Type 2 diabetes mellitus with hyperglycemia[ICD10: E11.65] Rika Motta MD, [facility] CPT-4: 67833 03/21/2016 [id number]) 89777 EST. PATIENT, LEVEL IV Diagnosis: Type 2 diabetes mellitus with hyperglycemia[ICD10: E11.65] Diagnosis: Cellulitis of right lower limb[ICD10: L03.115] Diagnosis: Other elevated white blood cell count[ICD10: D72.828] Diagnosis: Localized edema[ICD10: R60.0] Rika Motta MD, [facility] CPT-4: 62341 03/11/2016 [id number]) 92993 EST. PATIENT, LEVEL IV Diagnosis: Type 2 diabetes mellitus with hyperglycemia[ICD10: E11.65] Diagnosis: Localized edema[ICD10: R60.0] Diagnosis: Other conjunctivitis[ICD10: H10.89] Diagnosis: Obstructive sleep apnea (adult) (pediatric)[ICD10: G47.33] Diagnosis: Unspecified asthma, uncomplicated[ICD10: J45.909] Diagnosis: VAC STREP PNEUMONIAE-FLU[ICD10: Z23] Rika Motta MD, [facility] CPT-4: 99075 02/26/2016 [id number]) 96529 EST. PATIENT, LEVEL IV Diagnosis: Essential (primary) hypertension[ICD10: I10] Diagnosis: Paroxysmal atrial fibrillation[ICD10: I48.0] Diagnosis: Type 2 diabetes mellitus with hyperglycemia[ICD10: E11.65] Diagnosis: Obstructive sleep apnea (adult) (pediatric)[ICD10: G47.33] Diagnosis: Chronic obstructive pulmonary disease, unspecified[ICD10: J44.9] Rika Motta MD, [facility] CPT-4: 98800 02/02/2016 ([id number]) 00169 EST. 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 PATIENT, LEVEL IV Diagnosis: Type 2 diabetes mellitus with hyperglycemia[ICD10: E11.65] Diagnosis: Generalized anxiety disorder[ICD10: F41.1] Diagnosis: Essential (primary) hypertension[ICD10: I10] Diagnosis: Restless legs syndrome[ICD10: G25.81] Diagnosis: Dysuria[ICD10: R30.0] Rika Motta MD, [facility] CPT-4: 65882 11/27/2015 49099 EST. PATIENT, LEVEL IV Diagnosis: Addisonian crisis[ICD10: E27.2] Arlette Motta MD, [facility] CPT-4 : 86871 11/12/2015 78462 EST. PATIENT, LEVEL IV Diagnosis: Acute bronchitis due to other specified organisms[ICD10: J20.8] Diagnosis: Other acute sinusitis[ICD10: J01.80] Diagnosis: Other malaise[ICD10: R53.81] Diagnosis: Cough[ICD10: R05] Arlette Motta MD, [facility] CPT-4: 17040 11/10/2015 79618 EST. PATIENT, LEVEL IV Diagnosis: Pain in left knee[ICD10: M25.562] Diagnosis: Cellulitis of right toe[ICD10: L03.031] Arlette Motta MD, [facility] CPT-4: 07387 10/27/2015 ([id number]) 65996 EST. PATIENT, LEVEL IV Diagnosis: Essential (primary) hypertension[ICD10: I10] Diagnosis: Localized edema[ICD10: R60.0] Diagnosis: Type 2 diabetes mellitus with hyperglycemia[ICD10: E11.65] Rika Motta MD, [facility] CPT-4: 67649 09/22/2015 ([id number]) 69896 EST. PATIENT, LEVEL IV Diagnosis: Essential (primary) hypertension[ICD10: I10] Diagnosis: Type 2 diabetes mellitus with hyperglycemia[ICD10: E11.65] Diagnosis: Cellulitis of right toe[ICD10: L03.031] Rika Motta MD, [facility] CPT-4: 36360 09/01/2015 ([id number]) 49654 EST. PATIENT, LEVEL IV Diagnosis: Type 2 diabetes mellitus with hyperglycemia[ICD10: E11.65] Diagnosis: Essential (primary) hypertension[ICD10: I10] Diagnosis: Generalized anxiety disorder[ICD10: F41.1] Diagnosis: Hypothyroidism, unspecified[ICD10: E03.9] Diagnosis: Body mass index (BMI) 40.0-44.9, adult[ICD10: Z68.41] Rika Motta MD, [facility] CPT-4: 90429 08/10/2015 65143 EST. PATIENT, LEVEL IV Diagnosis: Acute bronchitis due to other specified organisms[ICD10: J20.8] Diagnosis: Pain in left knee[ICD10: M25.562] Diagnosis: Type 2 diabetes mellitus with hyperglycemia[ICD10: E11.65] Arlette Motta MD, [facility] CPT-4: 57315 06/26/2015 ([id number]) 83070 EST. PATIENT, LEVEL IV Diagnosis: Cellulitis of right lower limb[ICD10: L03.115] Diagnosis: Type 2 diabetes mellitus with hyperglycemia[ICD10: E11.65] Diagnosis: Essential (primary) hypertension[ICD10: I10] Diagnosis: Edema, unspecified[ICD10: R60.9] Rika Motta MD, [facility] CPT-4: 20110 04/14/2015 ([id number]) 73136 EST. PATIENT, LEVEL IV Diagnosis: Essential (primary) hypertension[ICD10: I10] Diagnosis: Type 2 diabetes mellitus with hyperglycemia[ICD10: E11.65] Diagnosis: Localized edema[ICD10: R60.0] Diagnosis: Dysuria[ICD10: R30.0] Rika Motta MD, [facility] CPT-4: 27475 03/03/2015 ([id number]) 35972 EST. PATIENT, LEVEL III Diagnosis: Blister of leg[ICD9: 916.2] Diagnosis: Rash[ICD9: 782.1] Diagnosis: EDEMA[ICD9: 782.3] Tessie Motta MD, [facility] CPT-4: 42084 01/15/2015 ([id number]) 57168 EST. PATIENT, LEVEL IV Diagnosis: Cellulitis, leg[ICD9: 682.6] Diagnosis: DIABETES TYPE II[ICD9: 250.00] Tessie Motta MD, [facility] CPT- 4: 86552 01/01/2015 ([id number]) Miscellaneous no charge Diagnosis: CVA (cerebral vascular accident)[ICD9: 434.91] Isabella Motta MD, [facility] CPT-4: 33462 12/25/2014 ([id number]) [id number] EST. PATIENT, LEVEL IV Diagnosis: ESSENTIAL HYPERTENSION[ICD9: 401.9] Diagnosis: DM W/O COMPLICATION TYPE II, UNCONTROLLED[ICD9: 250.02] Diagnosis: EDEMA[ICD9: 782.3] Diagnosis: Dysuria[ICD9: 788.1] Rika Motta MD, [facility] CPT-4: 52626 11/04/2014 ([id number]) [id number] EST. PATIENT, LEVEL IV Diagnosis: EDEMA[ICD9: 782.3] Diagnosis: Cellulitis of right leg[ICD9: 682.6] Diagnosis: Allergic rhinitis[ICD9: 477.9] Rika Motta MD, [facility] CPT-4: 77894 09/08/2014 ([id number]) [id number] EST. PATIENT, LEVEL IV Diagnosis: EDEMA[ICD9: 782.3] Diagnosis: ESSENTIAL HYPERTENSION[ICD9: 401.9] Diagnosis: DIABETES TYPE II[ICD9: 250.00] Diagnosis: Cellulitis of right leg[ICD9: 682.6] Rika Motta MD, [facility] CPT-4: 45441 08/29/2014 ([id number]) 50894 EST. PATIENT, LEVEL III Diagnosis: EDEMA[ICD9: 782.3] Diagnosis: DIABETES TYPE II[ICD9: 250.00] Tessie Motta MD, [facility] CPT- 4: 77336 06/30/2014 ([id number]) 60488 EST. PATIENT, LEVEL IV Diagnosis: EDEMA[ICD9: 782.3] Diagnosis: DM W/O COMPLICATION TYPE II, UNCONTROLLED[ICD9: 250.02] Diagnosis: Sciatica[ICD9: 724.3] Tessie Motta MD, [facility] CPT-4: 80744 06/12/2014 ([id number]) 82446 EST. PATIENT, LEVEL III Diagnosis: Cellulitis, leg[ICD9: 682.6] Diagnosis: EDEMA[ICD9: 782.3] Rika Motta MD, [facility] CPT-4: 37542 05/26/2014 ([id number]) 21483 EST. PATIENT, LEVEL IV Diagnosis: DIABETES TYPE II[ICD9: 250.00] Diagnosis: Chronic sinusitis[ICD9: 473.9] Tessie Motta MD, [facility] CPT- 4: 45383 04/15/2014 ([id number]) 64727 EST. PATIENT, LEVEL IV Diagnosis: DM W/O COMPLICATION TYPE II, UNCONTROLLED[ICD9: 250.02] Diagnosis: CHRONIC SINUSITIS[ICD9: 473.9] Diagnosis: EDEMA[ICD9: 782.3] Diagnosis: Right knee pain[ICD9: 719.46] Rika Motta MD, [facility] CPT-4: 89634 03/25/2014 ([id number]) 28364 EST. PATIENT, LEVEL IV Diagnosis: Blister of leg[ICD9: 916.2] Diagnosis: EDEMA[ICD9: 782.3] Diagnosis: DM W/O COMPLICATION TYPE II, UNCONTROLLED[ICD9: 250.02] Diagnosis: ESSENTIAL HYPERTENSION[ICD9: 401.9] Rika Motta MD, [facility] CPT-4: 52691 03/03/2014 ([id number]) 95907 EST. PATIENT, LEVEL IV Diagnosis: CELLULITIS OF LEG[ICD9: 682.6] Diagnosis: Diabetes mellitus type 2, uncontrolled[ICD9: 250.02] Diagnosis: ESSENTIAL HYPERTENSION[ICD9: 401.9] Diagnosis: EDEMA[ICD9: 782.3] Tessie Motta MD, [facility] CPT-4: 91842 02/13/2014 ([id number]) 85845 EST. PATIENT, LEVEL IV Diagnosis: Diabetes mellitus type 2, uncontrolled[ICD9: 250.02] Tessie Motta MD, [facility] CPT-4: 13519 01/27/2014 ([id number]) 00052 EST. PATIENT, LEVEL III Diagnosis: OPEN WND KNEE/LEG/ANKLE[ICD9: 891.0] Diagnosis: EDEMA[ICD9: 782.3] Rika Motta MD, [facility] CPT-4: 53235 12/26/2013 ([id number]) 87183 EST. PATIENT, LEVEL III Diagnosis: Cellulitis of right leg[ICD9: 682.6] Diagnosis: OPEN WND KNEE/LEG/ANKLE[ICD9: 891.0] Rika Motta MD, [facility] CPT-4: 77720 12/12/2013 ([id number]) 54434 EST. PATIENT, LEVEL IV Diagnosis: Asthma exacerbation[ICD9: 493.92] Diagnosis: COUGH[ICD9: 786.2] Diagnosis: EDEMA[ICD9: 782.3] Rika Motta MD, [facility] CPT-4: 10618 11/14/2013 ([id number]) 01963 EST. PATIENT, LEVEL III Diagnosis: OPEN WND KNEE/LEG/ANKLE[ICD9: 891.0] Diagnosis: EDEMA[ICD9: 782.3] Rika Motta MD, [facility] CPT-4: 58635 10/21/2013 ([id number]) 54601 EST. PATIENT, LEVEL IV Diagnosis: ESSENTIAL HYPERTENSION[SNOMED: 23413234] Diagnosis: Right knee pain[ICD9: 719.46] Diagnosis: OPEN WND KNEE/LEG/ANKLE[ICD9: 891.0] Rika Motta MD, [facility] CPT-4: 31202 10/03/2013 ([id number]) Miscellaneous no charge Diagnosis: Open wound of leg[ICD9: 891.0] Rika Motta MD, [facility] CPT-4: 93164 09/27/2013 94446 EST. PATIENT, LEVEL II Diagnosis: Open wound of leg[ICD9: 891.0] Diagnosis: Wrist pain, left[ICD9: 719.43] Rika Motta MD, [facility] CPT-4: 54312 09/23/2013 ([id number]) 74171 EST. PATIENT, LEVEL IV Diagnosis: CELLULITIS OF LEG[ICD9: 682.6] Diagnosis: ESSENTIAL HYPERTENSION[SNOMED: 92941855] Diagnosis: EDEMA[ICD9: 782.3] Rika Motta MD, [facility] CPT-4: 26926 09/20/2013 ([id number]) 54837 EST. PATIENT, LEVEL IV Diagnosis: Open wound of right lower leg[ICD9: 891.0] Diagnosis: DM W/O COMPLICATION TYPE II, UNCONTROLLED[SNOMED: 91947525] Diagnosis: Edema[ICD9: 782.3] Rika Motta MD, [facility] CPT-4: 60063 09/10/2013 ([id number]) 90169 EST. PATIENT, LEVEL III Diagnosis: DM W/O COMPLICATION TYPE II, UNCONTROLLED[SNOMED: 42801583] Diagnosis: EDEMA[ICD9: 782.3] Tessie Motta MD, [facility] CPT-4: 88853 08/19/2013 ([id number]) 57423 EST. PATIENT, LEVEL IV Diagnosis: EDEMA[ICD9: 782.3] Diagnosis: DIABETES TYPE II[SNOMED: 658812661] Diagnosis: HYPOTHYROIDISM[ICD9: 244.9] Diagnosis: LUMBAGO[ICD9: 724.2] Diagnosis: SCIATICA[ICD9: 724.3] Tessie Motta MD, [facility] CPT-4: 12949 08/12/2013 ([id number]) 14082 EST. PATIENT, LEVEL IV Diagnosis: DIABETES TYPE II[SNOMED: 608842013] Diagnosis: EDEMA[ICD9: 782.3] Diagnosis: HYPOTHYROIDISM[ICD9: 244.9] Diagnosis: Encounter for long-term (current) use of other medications[ICD9: V58.69] Diagnosis: LUMBAGO[ICD9: 724.2] Rika Motta MD, [facility] CPT-4: 14908 08/01/2013 ([id number]) 66557 EST. PATIENT, LEVEL III Diagnosis: Blister of right foot[ICD9: 917.2] Rika Motta MD [facility] CPT-4: 33569 07/19/2013 ([id number]) 75437 EST. PATIENT, LEVEL III Diagnosis: Cellulitis of right leg[ICD9: 682.6] Diagnosis: ESSENTIAL HYPERTENSION[SNOMED: 83908839] Diagnosis: EDEMA[ICD9: 782.3] Rika Motta MD, [facility] CPT-4: 79120 07/15/2013 ([id number]) 58775 EST. PATIENT, LEVEL IV Diagnosis: DIABETES TYPE II[SNOMED: 781293780] Diagnosis: BACKACHE[ICD9: 724.5] Diagnosis: Muscle spasms of neck[ICD9: 728.85] Tessie Motta MD, [facility] CPT-4: 25887 06/27/2013 ([id number]) 32897 EST. PATIENT, LEVEL IV Diagnosis: DM W/O COMPLICATION TYPE II, UNCONTROLLED[SNOMED: 12934986] Diagnosis: EDEMA[ICD9: 782.3] Diagnosis: OBESITY[ICD9: 278.00] Diagnosis: WHEEZING[ICD9: 786.07] Tessie Motta MD, [facility] CPT-4: 17419 06/10/2013 ([id number]) 13927 EST. PATIENT, LEVEL IV Diagnosis: CHRONIC SINUSITIS[ICD9: 473.9] Diagnosis: WHEEZING[ICD9: 786.07] Diagnosis: ACUTE BRONCHITIS[ICD9: 466.0] Diagnosis: Back pain[ICD9: 724.5] Tessie Motta MD, [facility] CPT-4: 34873 05/07/2013 ([id number]) 86245 EST. PATIENT, LEVEL IV Diagnosis: EDEMA[ICD9: 782.3] Diagnosis: COPD (chronic obstructive pulmonary disease) with acute bronchitis[ ICD9: 491.22] Tessie Motta MD, [facility] CPT-4: 28184 04/16/2013 ([id number]) 87185 EST. PATIENT, LEVEL IV Diagnosis: Lumbago[ICD9: 724.2] Diagnosis: DM W/O COMPLICATION TYPE II, UNCONTROLLED[SNOMED: 69050862] Diagnosis: EDEMA[ICD9: 782.3] Rika Motta MD, [facility] CPT-4: 49054 03/21/2013 ([id number]) 07320 EST. PATIENT, LEVEL IV Diagnosis: Abdominal pain[ICD9: 789.00] Diagnosis: EDEMA[ICD9: 782.3] Diagnosis: DIABETES TYPE II[SNOMED: 096420170] Tessie Motta MD, [facility] CPT-4: 30376 02/12/2013 ([id number]) 03970 EST. PATIENT, LEVEL III Diagnosis: EDEMA[ICD9: 782.3] Diagnosis: RESPIRATORY ABNORM NEC[ICD9: 786.09] Tessie Motta MD, [facility] CPT-4: 08173 02/04/2013 ([id number]) 72423 EST. PATIENT, LEVEL IV Diagnosis: Edema[ICD9: 782.3] Diagnosis: ESSENTIAL HYPERTENSION[SNOMED: 83789353] Tessie Motta MD, [facility] CPT-4: 32273 01/17/2013 ([id number]) 50772 EST. PATIENT, LEVEL IV Diagnosis: ESSENTIAL HYPERTENSION[SNOMED: 49687529] Diagnosis: Diabetic leg ulcer[ICD9: 250.80] Diagnosis: Callus[ICD9: 700] Diagnosis: Urinary urgency[ICD9: 788.63] Diagnosis: HYPOTHYROIDISM[ICD9: 244.9] Rika Motta MD, [facility] CPT-4: 68106 12/31/2012 ([id number]) 45622 EST. PATIENT, LEVEL IV Diagnosis: Cellulitis of left leg[ICD9: 682.6] Diagnosis: DIABETES TYPE II[SNOMED: 696873165] Diagnosis: ESSENTIAL HYPERTENSION[SNOMED: 89795878] Diagnosis: EDEMA[ICD9: 782.3] Rika Motta MD [facility] CPT-4: 83259 12/20/2012 ([id number]) 62114 EST. PATIENT, LEVEL III Diagnosis: Acute bronchitis[ICD9: 466.0] Diagnosis: COUGH[ICD9: 786.2] Tessie Motta MD [facility] CPT-4: 91610 10/29/2012 ([id number]) 12732 EST. PATIENT, LEVEL IV Diagnosis: ESSENTIAL HYPERTENSION[SNOMED: 06732725] Diagnosis: DIABETES TYPE II[SNOMED: 968365074] Diagnosis: HYPOTHYROIDISM[ICD9: 244.9] Tessie Motta MD [facility] CPT- 4: 53199 09/06/2012 ([id number]) 17434 EST. PATIENT, LEVEL IV Diagnosis: DIABETES TYPE II[SNOMED: 537841704] Diagnosis: ESSENTIAL HYPERTENSION[SNOMED: 95569719] Diagnosis: Diarrhea[ICD9: 787.91] Tessie Motta MD [facility] CPT-4: 62993 08/23/2012 ([id number]) 77138 EST. PATIENT, LEVEL III Diagnosis: ESSENTIAL HYPERTENSION[SNOMED: 10527261] Diagnosis: Gastroenteritis[ICD9: 558.9] Rika Motta MD [facility] CPT-4: 35485 08/13/2012 ([id number]) 10666 EST. PATIENT, LEVEL IV Diagnosis: Diarrhea[ICD9: 787.91] Diagnosis: ESSENTIAL HYPERTENSION[SNOMED: 97552582] Diagnosis: DM W/O COMPLICATION TYPE II, UNCONTROLLED[SNOMED: 34212586] Rika Motta MD [facility] CPT-4: 82968 08/07/2012 ([id number]) 89421 EST. PATIENT, LEVEL III Diagnosis: Acute sinusitis[ICD9: 461.9] Diagnosis: Thrush[ICD9: 112.0] Rika Motta MD [facility] CPT-4: 90094 07/06/2012 ([id number]) 63921 EST. PATIENT, LEVEL IV Diagnosis: ESSENTIAL HYPERTENSION[SNOMED: 85645471] Diagnosis: DIABETES TYPE II[SNOMED: 953274222] Tessie Motat MD, [facility] CPT-4: 37119 06/07/2012 ([id number]) 66234 EST. PATIENT, LEVEL IV Diagnosis: ESSENTIAL HYPERTENSION[SNOMED: 74669443] Diagnosis: ACUTE SINUSITIS[ICD9: 461.9] Diagnosis: Labial cyst[ICD9: 624.8] Tessie Motta MD [facility] CPT-4: 02390 05/28/2012 ([id number]) 93475 EST. PATIENT, LEVEL IV Diagnosis: ESSENTIAL HYPERTENSION[SNOMED: 82408009] Diagnosis: EDEMA[ICD9: 782.3] Tessie Motta MD [facility] CPT-4: 49598 05/17/2012 ([id number]) 16896 EST. PATIENT, LEVEL IV Diagnosis: EDEMA[ICD9: 782.3] Diagnosis: ESSENTIAL HYPERTENSION[SNOMED: 42990419] Diagnosis: Diarrhea[ICD9: 787.91] Diagnosis: ALLERGIC RHINITIS[ICD9: 477.9] Tessie Motta MD [facility] CPT- 4: 80042 05/02/2012 ([id number]) 15912 EST. PATIENT, LEVEL IV Diagnosis: ACUTE SINUSITIS[ICD9: 461.9] Diagnosis: ESSENTIAL HYPERTENSION[SNOMED: 31655472] Diagnosis: ALLERGIC RHINITIS[ICD9: 477.9] Tessie Motta MD [facility] CPT- 4: 62105 04/10/2012 ([id number]) 50367 EST. PATIENT, LEVEL IV Diagnosis: ESSENTIAL HYPERTENSION[SNOMED: 23102881] Diagnosis: Foreign body in foot or toe[ICD9: 917.6] Diagnosis: EDEMA[ICD9: 782.3] Tessie Motta MD [facility] CPT-4: 36231 02/27/2012 ([id number]) 01422 EST. PATIENT, LEVEL IV Diagnosis: CELLULITIS OF FOOT[ICD9: 682.7] Diagnosis: DIABETES TYPE II[SNOMED: 423877075] Diagnosis: EDEMA[ICD9: 782.3] Tessie Motta MD [facility] CPT-4: 63086 02/15/2012 ([id number]) 77890 EST. PATIENT, LEVEL IV Diagnosis: EDEMA[ICD9: 782.3] Diagnosis: ESSENTIAL HYPERTENSION[SNOMED: 62275068] Diagnosis: ACUTE SINUSITIS[ICD9: 461.9] Diagnosis: Dysuria[ICD9: 788.1] Tessie Motta MD [facility] CPT-4: 18114 02/01/2012 ([id number]) 25163 EST. PATIENT, LEVEL IV Diagnosis: DIABETES TYPE II[SNOMED: 332141726] Diagnosis: Diverticulitis[ICD9: 562.11] Tessie Motta MD [facility] CPT- 4: 17285 12/14/2011 ([id number]) 17324 EST. PATIENT, LEVEL IV Diagnosis: Nausea vomiting and diarrhea[ICD9: 787.01] Diagnosis: ESSENTIAL HYPERTENSION[SNOMED: 32548281] Diagnosis: DM W/O COMPLICATION TYPE II, UNCONTROLLED[SNOMED: 97679204] BENNETT Altman MD CPT-4: 97874 11/30/2011 ([id number]) 30955 EST. PATIENT, LEVEL IV Diagnosis: ESSENTIAL HYPERTENSION[SNOMED: 52765299] Diagnosis: DIABETES TYPE II[SNOMED: 862509264] Diagnosis: COUGH[ICD9: 786.2] Tessie Motta MD [facility] CPT-4: 61462 11/17/2011 ([id number]) Patient admitted to the hospital from clinic (NO CHARGE) Diagnosis: Tachycardia[ICD9: 785.0] Diagnosis: Dyspnea[ICD9: 786.09] Diagnosis: Wheezing[ICD9: 786.07] Diagnosis: FALL AGAINST OBJECT[ICD9: E888.1] Diagnosis: ANXIETY STATE[ICD9: 300.00] Diagnosis: ESSENTIAL HYPERTENSION[SNOMED: 69387092] Diagnosis: Chronic depression[ICD9: 311] Diagnosis: Diabetes mellitus type 2, uncontrolled[SNOMED: 30545744] Tessie Motta MD [facility] CPT-4: 21912R 11/03/2011 ([id number]) 31214 EST. PATIENT, LEVEL IV Diagnosis: DIABETES TYPE II[SNOMED: 374650475] Diagnosis: ANXIETY STATE[ICD9: 300.00] Diagnosis: DEPRESSIVE DISORDER NEC[ICD9: 311] Diagnosis: Ulcer of toe[ICD9: 707.15] [facility] CPT- 4: 58721 10/24/2011 ([id number]) 10088 EST. PATIENT, LEVEL IV Diagnosis: EDEMA[ICD9: 782.3] Diagnosis: ESSENTIAL HYPERTENSION[SNOMED: 25060353] Diagnosis: ANXIETY STATE[ICD9: 300.00] Tessie Motta MD [facility] CPT- 4: 06065 09/26/2011 56744 EST. PATIENT, LEVEL IV Diagnosis: EDEMA[ICD9: 782.3] Diagnosis: ESSENTIAL HYPERTENSION[SNOMED: 04810340] Rika Motta MD, [facility] CPT-4: 12024 09/20/2011 ([id number]) 79412 EST. PATIENT, LEVEL IV Diagnosis: ACUTE SINUSITIS[ICD9: 461.9] Diagnosis: Allergic rhinitis[ICD9: 477.9] Diagnosis: Cough[ICD9: 786.2] Tessie Motta MD, [facility] CPT-4: 30753 09/01/2011 ([id number]) 55131 EST. PATIENT, LEVEL IV Diagnosis: Chronic sinusitis[ICD9: 473.9] Diagnosis: Anxiety, generalized[ICD9: 300.02] Tessie Motta MD, [facility] CPT-4: 26012 08/15/2011 13111 EST. PATIENT, LEVEL IV Diagnosis: ACUTE SINUSITIS[ICD9: 461.9] Diagnosis: Tachycardia[ICD9: 785.0] Diagnosis: Anxiety[ICD9: 300.00] Diagnosis: Dehydration[ICD9: 276.51] Diagnosis: Sciatica[ICD9: 724.3] Tessie Motta MD, [facility] CPT-4: 55229 08/09/2011 70031 EST. PATIENT, LEVEL IV Diagnosis: DIABETES TYPE II[SNOMED: 393265862] Diagnosis: Sciatica[ICD9: 724.3] Diagnosis: Yeast infection[ICD9: 112.9] Tessie Motta MD, [facility] CPT- 4: 84618 08/01/2011 ([id number]) 90406 EST. PATIENT, LEVEL IV Diagnosis: DIABETES TYPE II[SNOMED: 256126800] Diagnosis: ACUTE MAXILLARY SINUSITIS[ICD9: 461.0] Diagnosis: Fibromyalgia[ICD9: 729.1] Tessie Motta MD, [facility] CPT-4: 87076 06/20/2011 03465 EST. PATIENT, LEVEL IV Diagnosis: ESSENTIAL HYPERTENSION[SNOMED: 84388270] Diagnosis: DIABETES TYPE II[SNOMED: 865300982] Diagnosis: ACUTE MAXILLARY SINUSITIS[ICD9: 461.0] [facility] CPT-4: 80213 04/18/2011 Plan of Care Planned Activity Notes Codes Status Date Visit Plan: Hypertension - well controlled - [...] assisted living. 05/16/2018 Appointment: [facility] (15 min) Moderate 05/16/2018 Patient Education: Patient [...] verbalized understanding. 04/27/2018 [facility]ment[phone] (30 min) Complex 04/27/2018 Patient Education: Patient Medication Summary Completed 04/27/2018 Appointment: Rika Bello WPtel: [phone] [phone] [place] (15 min) Moderate 04/24/2018 Appointment: Nurse [...] and return Monday for removal of IPRO Maipmpz-pqfbdmqvpc-do changes in medications-recommend counseling-patient refuses Weakness-patient is deconditioned-refuses PT -recommend patient start walking more 04/10/2018 Appointment: Rika Bello WPtel: [phone] [place] (15 min) Moderate 04/10/2018 Patient Education: Patient Medication Summary Completed 04/10/2018 Appointment: Arlette Skelton WPtel: [facility] (15 min) Moderate 03/21/2018 Appointment: Rika Bello WPtel: [phone] (30 min) Complex 03/20/2018 Visit Plan: Hypertension [...] as directed 03/12/2018 Appointment: [facility] [address] [phone] [place] (15 min) Moderate 03/12/2018 Patient Education: Patient Medication Summary Completed 03/12/2018 Patient Education: Back Pain Completed 03/12/2018 Appointment: [phone] [phone] [place] (30 min) Complex 03/08/2018 Appointment: Lab [...] Dr Raines' s treatment plan with Mirtha álvarez -recommend they discuss short actin insulins with [...] next refill 02/20/2018 Appointment: [phone] [phone] [place] (15 min) Moderate 02/20/2018 Patient Education: Patient Medication Summary Completed 02/20/2018 Patient Education: Back Pain Completed 02/20/2018 Patient Education: Patient Medication Summary Completed 02/20/2018 Care Plan: Iron Pending 02/20/2018 Appointment: Rika Bello [phone] [place] (30 min) Complex 02/19/2018 Appointment: [facility] [phone] [phone] [place] (15 min) Moderate 02/01/2018 Visit Plan: UA negative -no culture indicated 12/14/2017 Appointment: Lab Draw 12/14/2017 Patient Education: Patient Medication Summary Completed 12/14/2017 Visit Plan: Dysuria-urinary incontinence-culture urine HTN- elevated today-monitor at home -follow up with anesthetist 11/27/2017 Appointment: Ace Rika WPtel: [phone] [phone] [place] (15 min) Moderate 11/27/2017 Patient Education: [...] Completed 10/27/2017 Care Plan: SCREENINGMAMMOGRAPHYDIGITAL LOINC : 12385-7 Pending 10/27/2017 Appointment: Arlette Skelton WPtel: [phone] [facility] (15 min) Moderate 10/03/2017 Appointment: Arlette Skelton WPtel: [phone] [facility] (15 min) Moderate 10/02/2017 Appointment: Rika Bello WPtel: [phone] (30 min) Complex 09/29/2017 Visit Plan: Continuous [...] acutely worsened. 09/27/2017 Appointment: Arlette Skelton WPtel: [facility] (30 min) Complex 09/27/2017 Patient Education: Patient Medication Summary Completed 09/27/2017 Care Plan: CT HEAD/BRAIN W/O DYE LOINC : 70870-8 Pending 09/27/2017 Visit Plan: DM-patient noncompliant with [...] over- medication. 09/15/2017 Appointment: Rika Bello WPtel: [phone] [phone] (30 min) Complex 09/15/2017 Patient Education: Patient Medication Summary Completed 09/15/2017 Appointment: Rika Bello WPtel: [phone] [phone] (30 min) Complex 09/12/2017 Appointment: Rika Bello WPtel: [phone] [phone] (30 min) Complex 09/07/2017 Visit Plan: Qnk-hdwgyfsshw-ng changes Anemia-check cbc today Dental infection-on clindamycin per Dr Bryant-start probiotics Also needs to monitor blood sugars closely 08/18/2017 Appointment: Rika Bello WPtel: [address] [phone] (30 min) Complex 08/18/2017 Patient Education: Patient [...] not resolve 08/03/2017 Appointment: Rika Bello WPtel: [phone] (30 min) Complex 08/03/2017 Patient Education: Patient [...] symptoms worsen 07/27/2017 Appointment: Rika Bello WPtel: [address] [place], [place] [phone] (30 min) [facility] 07/27/2017 Patient Education: Patient Medication Summary Completed [...] in medications 06/13/2017 Appointment: Tessie Motta WPtel: [phone] [facility] [place] (15 min) Moderate 06/13/2017 Patient Education: Patient Medication Summary Completed 06/13/2017 Visit Plan: Dental abscess - will send RX - pt is to keep her appointment with her dentist - pt is to notify clinic if symptoms do not improve, if they worsen, or with any other acute changes, questions, or concerns. 04/21/2017 Appointment: Ar[facility] [place] [phone] [place] (30 min) Complex 04/21/2017 Patient Education: Patient [...] Q HS RESCHEDULE APPT WITH DR YANNA HoOqgzudmxe-jsdiqzvzf-lo for bactroban ointment provided and instructed on use ECQ-mnoxnriktz-pz change in medications Mildly elevated liver enzymes-discussed with Dr motta-suspect due to gabapentin-will monitor levels Gait instability-again recommend patient use walker as well as PT 04/18/2017 Appointment: Rika Bello [phone] [phone] [place] (30 min) Complex 04/18/2017 Patient Education: [...] become less controlled. Low potassium- check labs DXB-ekwpxzrvzl-qy changes Afib-check digoxin level with labs Abdominal [...] become less controlled. Low potassium- check labs UNW-misgqadtdh-uz changes Afib-check digoxin level with labs Abdominal pain-refill levsin for prn use -call if pain uncontrolled 03/27/2017 Appointment: Rika Bello WPtel: [address] [place], [place] [phone] [place] [address] (30 min) Complex 03/27/2017 Patient Education: Patient Medication Summary Completed 03/27/2017 Appointment: Rika Bello WPtel: [address] [place] [phone] (30 min) Complex 03/24/2017 Visit Plan: Hypertension - well controlled - continue with current medications, continue with no added salt diet. Pt has been encouraged to exercise daily. The pt has been advised to call the office if there are any acute concerns about change in blood pressure readings at home. DM-uncontrolled- discussed strict diet and exercise with patient Low cphmyzzkw-zihxbsxr-lfomwmya to monitor Abd fgpt-zuzywqty-sj changes 02/27/2017 Appointment: Rika Bello WPtel: [address] [place] [phone] (30 min) Complex 02/27/2017 Patient Education: Patient [...] this regimen. 02/21/2017 Appointment: Rika Bello WPtel: [facility] [address] (30 min) Complex 02/21/2017 Patient Education: Patient Medication Summary Completed 02/21/2017 Appointment: Rika Bello WPtel: [facility] [place] [phone] (30 min) Complex 02/20/2017 Visit Plan: Generalized [...] labs on Monday02/17/2017 Appointment: Rika Bello WPtel: [facility] [place] [phone] (30 min) Complex 02/17/2017 Patient Education: Patient Medication Summary Completed 02/17/2017 Visit Plan: COPD-recent hospitalization with pneumonia- symptoms improved-discussed continuous oxygen use at home-appt with Dr Odonnell tomorrow Afib-check digoxin level-patient just finished zpack Diarrhea-continue probiotics-check stool if diarrhea persists DM-bring log to next appt 02/13/2017 Appointment: Rika Bello WPtel: [facility] [place] [phone] (30 min) Complex 02/13/2017 Patient Education: Patient Medication Summary Completed 02/13/2017 Patient Education: Hypertension Completed 02/13/2017 Visit Plan: DM-very uncontrolled-refer to Dr Raines for management RIght shoulder and arm pain-fell 5 days ago-xray shoulder and arm Chronic sinusitis-RX for Dr Cervantes's compound gentamicin nasal spray 01/30/2017 Appointment: Rika Bello WPtel: [facility]5 [phone] (30 min) Complex 01/30/2017 Patient Education: Patient Medication Summary Completed 01/30/2017 Care Plan: Referral Order SNOMED-CT : 231913160 Pending 01/30/2017 Visit Plan: Hypertension - well [...] every night DM-check Hgb A1C Hypothyroidism-check level Wzwpuvv-xctkvqmcwb-wlx well controlled- increase cymbalta-recommend counseling 01/16/2017 Appointment: Rika Bello WPtel: [phone] (30 min) Complex 01/16/2017 Patient Education: Patient Medication Summary Completed 01/16/2017 Appointment: Rika Bello WPtel: [phone] (30 min) Complex 01/10/2017 Visit Plan: Sinusitis [...] or concerns. 12/13/2016 Appointment: [facility] Skelton [phone] ([facility] min) Complex 12/13/2016 Patient Education: Patient [...] completely heal. 11/11/2016 Appointment: [phone] [phone] (30 min) Complex 11/11/2016 Patient Education: Patient Medication Summary Completed 11/11/2016 Care Plan: BMI Above normal followup SELF-MGMT EDUC & TRAIN 1 PT Pending 2016 Appointment: Rika Bello WPtel: [address] [place], [place] [phone] (30 min) Complex 11/08/2016 Visit Plan: Shingles-rash scabbed-no further treatment indicated-patient to call if pain uncontrolled N/V-check labs including UA DM- check labs today Thrush-RX for nystatin 10/28/2016 Appointment: Rika Bello WPtel: [address] [place], [place] [phone] (30 min) Complex 10/28/2016 Patient Education: Patient Medication Summary Completed 10/28/2016 Patient Education: Obesity Completed 10/28/2016 Appointment: Rika Bello WPtel: [address] [place], [place] [phone] (30 min) Complex 10/25/2016 Appointment: Lab Draw 10/21/2016 Patient Education: Patient Medication Summary Completed 10/21/2016 Visit Plan: Right knee pain-patient to schedule appt with Dr Allison Garcia-right arm-concerned for shingles-RX for acyclovir provided and instructed on use-call if symptoms do not resolve or if any worse. 10/13/2016 Appointment: Rika Bello WPtel: [address] [place], [place] [phone] (30 min) Complex 10/13/2016 Patient Education: Patient Medication Summary Completed 10/13/2016 Appointment: Rika Bello WPtel: [address] [place], [place] [phone] (30 min) Complex 10/11/2016 Appointment: Rika Bello WPtel: [address] [place], [place] [phone] [facility] - Annual Wellness Visit 10/04/2016 Visit [...] as directed. 09/23/2016 Appointment: Rika Bello WPtel: [address] [place], [place] [phone] (15 min) Moderate 09/23/2016 Patient Education: Patient [...] 09/13/2016 Care Plan: Referral Order SNOMED-CT : 293819032 Pending 09/13/2016 Appointment: Rika Bello WPtel: [address] [place], [place] [phone] (30 min) Complex 09/09/2016 Appointment: Rika Bello WPtel: [address] [place], [place] [phone] (30 min) Complex 09/08/2016 Visit Plan: Hypertension [...] CBC 08/09/2016 Appointment: [facility]el[phone] [phone] (30 min) Complex 08/09/2016 Patient Education: Patient [...] control. Yeast infection -rx for nystatin powder GFHF-esuxhszvc-pldoyo pneumonia -afib-patient is oxygen dependent due to severely compromised pulmonary and cardiac systems-will send orders to [facility] to continue oxygen 07/26/2016 Visit Plan: Diabetes [...] control. Yeast infection -rx for nystatin powder AXWA-dghcxnzzr-notqqf pneumonia -afib-patient is oxygen dependent due to severely compromised pulmonary and cardiac systems-will send orders to [facility] to continue oxygen 07/26/2016 Visit Plan: Diabetes [...] control. Yeast infection -rx for nystatin powder MFXX-tyztuizcy-symxvl pneumonia -afib-patient is oxygen dependent due to severely compromised pulmonary and cardiac systems-will send orders to [facility] to continue oxygen 07/26/2016 Appointment: Rika Bello WPtel: [phone] [phone] [place] (30 min) Complex 07/26/2016 Patient Education: Patient Medication Summary Completed 07/26/2016 Appointment: Rika Bello WPtel: [phone] [phone] [place] (30 min) Complex 07/22/2016 Appointment: Rika Bello WPtel: 1015 [phone] [place] (30 min) Complex 07/18/2016 Appointment: Rika Bello WPtel: [facility] [phone] [place] (30 min) Complex 07/01/2016 Appointment: Lab Draw 06/24/2016 Patient Education: Patient Medication Summary Completed 06/24/2016 Appointment: Rika Bello WPtel: [phone] [phone] [place] (30 min) Complex 2016 Visit Plan: [...] Completed 05/24/2016 Appointment: Rika Bello WPtel: 1015 [facility] [place] [address] (30 min) Complex 05/17/2016 Visit Plan: Vaginal [...] glucose control. 04/19/2016 Appointment: Rika Bello WPtel: [facility] [place] [address] (30 min) Complex 04/19/2016 Patient Education: Patient Medication Summary Completed 04/19/2016 Patient Education: Obesity Completed 04/19/2016 Appointment: Rika Bello WPtel: [facility] [place] [address] (30 min) Complex 04/18/2016 Visit Plan: Diabetes [...] to allow for greater blood glucose control. AOO-zoklzjxihn-rj changes in medications at this time. Dysuria-UA negative-needs pelvic exam due to pt c/o vaginal discharge 04/11/2016 Appointment: Rika Bello WPtel: [phone] [phone] (30 min) Complex 04/11/2016 Patient Education: Patient Medication Summary Completed 04/11/2016 Patient Education: Obesity Completed 04/11/2016 Appointment: Rika Bello WPtel: [phone] [phone] (30 min) Complex 04/08/2016 Visit Plan: Chronic [...] peripheral edema. 03/11/2016 Appointment: Rika Bello WPtel: [phone] [phone] (30 min) Complex 03/11/2016 Patient Education: Patient Medication Summary Completed [...] patient's pharmacy and instructed on use 02/26/2016 Visit Plan: Diabetes Mellitus - Uncontrolled [...] duoneb QID prn shortness of breath 02/26/2016 Appointment: Rika Bello WPtel: [phone] [phone] (30 min) Complex 02/26/2016 Patient Education: Patient Medication Summary Completed 02/26/2016 Appointment: Rika Bello WPtel: [phone] [phone] [place] (30 min) Complex 02/25/2016 Appointment: Rika Bello WPtel: [phone] [phone] (30 min) Complex 02/23/2016 Appointment: Lab Draw [...] mold 02/02/2016 Appointment: Rika Bello WPtel: [phone] [phone] [place] (30 min) Complex 02/02/2016 Patient Education: Patient Medication Summary Completed 02/02/2016 Appointment: Tessie Motta WPtel: [phone] [facility] [place] (15 min) Moderate 01/21/2016 Appointment: Rika Bello WPtel: [phone] [phone] [place] (30 min) Complex 01/14/2016 Visit Plan: [...] Patient Medication Summary Completed 12/17/2015 Visit Plan: Cicjgpu-seypwjvmn-edin head injury on 12/05-did not go to ER-patient sent for STAT CT scan of head-schedule appt with Dr Dyer Adrenal insufficiency-patient suddenly stopped prednisone-instructed patient to restart and taper prednisone as directed Rib yesv-cgrwe-iiiads fall-xray ribs 12/08/2015 Appointment: Rika Bello WPtel: [phone] [phone] [place] (15 min) Moderate 12/08/2015 Appointment: Rika Bello WPtel: [phone] (30 min) Complex 12/08/2015 Patient Education: Patient Medication Summary Completed 12/08/2015 Care Plan: COMPLETE CBC AUTOMATED LOINC : 08257-1 Pending 12/08/2015 Visit Plan: Hypertension - well [...] pt was 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 Mejia 10/27/2015 Appointment: Rika Bello WPtel: [address] [place], [place] [phone] (30 min) [facility] 10/27/2015 Patient Education: Patient Medication Summary Completed 10/27/2015 Patient Education: Obesity Completed 10/27/2015 Care Plan: Referral Order SNOMED-CT : 582074272 Pending 10/27/2015 Referral: Matt Pavon HPtel:[phone] [facility] Referral Initiated 10/21/2015 Visit Plan: Medicare [...] stomach pain. 09/29/2015 Appointment: Rika Bello WPtel: [phone] [facility] - Welcome to Medicare visit 09/29/2015 Patient Education: Patient Medication Summary Completed 09/29/2015 Patient Education: Obesity Completed 09/29/2015 Care Plan: Referral Order SNOMED-CT : 808639982 Pending 09/29/2015 Care Plan: BMI Above normal [...] one month for weight check. 08/10/2015 Appointment: [facility] - Welcome to Medicare visit 08/10/2015 Patient [...] min) Complex 05/05/2015 Appointment: Rika Bello WPtel: [phone] [phone] (30 min) Complex 04/27/2015 Visit Plan: Cellulitis [...] Hypertension Completed 03/03/2015 Appointment: Rika Bello WPtel: [phone] [phone] [place] (30 min) Complex 02/24/2015 Appointment: (30 min) Complex 01/29/2015 Appointment: Tessie Motta [facility]Ptel: [phone] [place] (15 min) Moderate 01/22/2015 Visit Plan: Blister of right lower leg-fluids removed with #27 gauze needle and compression dressing applied-refer to wound care for evaluation and management-patient is at high risk of developing large ulcer due to diabetes, noncompliance and poor hygiene. Rash right leg-start oral abx and bactroban as directed Qygbc-pwvpfkipghft-ppq markie wraps, elevate leg, and again instructed [...] eating out. 01/01/2015 Appointment: Tessie Motta WPtel: [facility] [place] (15 min) Moderate 01/01/2015 Patient Education: Patient [...] Care Plan: COMPLETE CBC AUTOMATED LOINC : 67932-9 Ordered 11/04/2014 Care Plan: URINALYSIS NONAUTO W/O SCOPE LOINC : 29377-7 Ordered 11/04/2014 Appointment: Follow up 10/07/2014 Visit Plan: Edema - pt has been advised to elevate legs to prevent dependent edema, compression has been recommended to help to naturally decrease peripheral edema. Diuretic use has been discussed and pt has been instructed in appropriate use of such medication as necessary to further attempt to reduce peripheral edema. Auagkmpwsn-alkuonqy-cp change in treatment- continue compression hose-decrease salt/sodium in diet-call if symptoms worsen or do not resolve Tcfffgpyv-bpfgqxs-sbkkbstu nasonex to twice daily as directed 09/08/2014 [...] they worsen. 06/12/2014 Appointment: Rika Bello WPtel: [phone] [id number] Follow up 06/12/2014 Patient Education: Patient Medication Summary Completed 06/12/2014 Patient Education: .Amazing charts Exercise for Sciatica Completed 06/12/2014 Care Plan: COMPLETE CBC AUTOMATED LOINC : 67829-3 Ordered 06/12/2014 Visit Plan: Cellulitis - continue [...] Summary Completed 05/26/2014 Appointment: Tessie Motta WPtel: [phone] [facility] Lab Draw 04/21/2014 Patient Education: Patient Medication [...] home. 02/13/2014 Appointment: Tessie Motta WPtel: [phone] [facility] Follow up 02/13/2014 Patient Education: Patient Medication [...] daily. 01/27/2014 Appointment: Tessie Motta WPtel: [phone] [facility] Follow up 01/27/2014 Patient Education: Patient Medication Summary Completed 01/27/2014 Appointment: Rika Bello WPtel: [facility]5 [phone] Follow up 01/02/2014 Visit Plan: Open wound of dyh-birtbwpw-rtkkuqlo with dressing changes as directed-call for increase [...] Summary Completed 12/26/2013 Appointment: Tessie Motta WPtel: [phone] Follow up 12/24/2013 Visit Plan: Open wound of right leg-debrided today in the office-instructed on wound care-follow up as directed. Call with any questions, concerns, or worsening symptoms. Culture of wound today in the office-RX for abx sent to patient's pharmacy and instructed on use. Patient verbalized understanding of plan. 12/12/2013 Appointment: Rika Bello WPtel: [phone] [phone] Other 12/12/2013 Patient Education: Patient Medication Summary Completed 12/12/2013 Appointment: Tessie Motta WPtel: [phone] Follow up 11/20/2013 Visit Plan: negative ua 11/18/2013 Appointment: Tessie Motta WPtel: [facility] Lab Draw 11/18/2013 Patient Education: Patient Medication [...] Completed 11/14/2013 Visit Plan: Open wound right uex-hhnjic-uehc if opens up Edema - pt has been advised to elevate legs to prevent dependent edema, compression has been recommended to help to naturally decrease peripheral edema. Diuretic use has been discussed and pt has been instructed in appropriate use of such medication as necessary to further attempt to reduce peripheral edema. 10/21/2013 Appointment: Rika Bello WPtel: [address] [place], [place] [id number] [place] [address] Follow up 10/21/2013 Patient Education: Patient Medication Summary Completed 10/21/2013 Appointment: Rika Bello WPtel: [address] [place], [place] [id number] [place] [address] Follow up 10/17/2013 Appointment: Tessie Motta WPtel: [address] [place], [place] [phone] Follow up 10/10/2013 Visit Plan: Hypertension - [...] for pain. 10/03/2013 Appointment: Rika Bello WPtel: [address] [place], [place] [id number] [place] [address] Follow up 10/03/2013 Patient Education: Patient Medication [...] of plan. 09/23/2013 Appointment: Tessie Motta WPtel: [address] [place], [place] [phone] Nurse Visit 09/23/2013 Patient Education: Patient Medication [...] 2 WEEKS. 09/20/2013 Appointment: Rika Bello WPtel: [address] [place] [address] [place] [address] Follow up 09/20/2013 Patient Education: Patient Medication Summary Completed 09/20/2013 Patient Education: Hypertension Completed 09/20/2013 Appointment: Tessie Motta WPtel: [address] [place], [place] [address] Follow up 09/16/2013 Visit Plan: Edema - [...] verbalized understanding. 09/10/2013 Appointment: Rika Bello WPtel: [phone] [facility] [place] [address] Other 09/10/2013 Patient Education: Patient Medication Summary Completed 09/10/2013 Appointment: AceSouravRika WPtel: [facility]5 [facility] [place] [address] Follow up 09/02/2013 Visit Plan: Diabetes Mellitus [...] peripheral edema. 08/19/2013 Appointment: Rika Bello WPtel: [facility]5 [facility] [place] [address] Other 08/19/2013 Patient Education: Patient Medication Summary [...] as scheduled 08/01/2013 Appointment: Rika Bello WPtel: [facility]5 [phone] [place] Follow up 08/01/2013 Patient Education: Patient Medication Summary Completed 08/01/2013 Appointment: Rika Bello WPtel: [address] [place], [place] [phone] [place] Follow up 07/25/2013 Appointment: Tessie Motta WPtel: [address] [place], [place] [phone] [place] Follow up 07/25/2013 Visit Plan: Bister of foot-dressing changes discussed with patient and instructed her to keep her foot clean and dry-STOP WEARING FLIP FLOPS as they are causing friction over blistered area. Keep follow up appointment as scheduled. Call for redness, drainage or other s/s of infection. 07/19/2013 Appointment: Rika Bello WPtel: [facility]5 [phone] [place] Other 07/19/2013 Patient Education: Patient Medication Summary [...] peripheral edema. 07/15/2013 Appointment: Rika Bello WPtel: [address] [place] [id number] [place] [address] Other 07/15/2013 Patient Education: Patient Medication Summary Completed 07/15/2013 Patient Education: Hypertension Completed 07/15/2013 Appointment: Rika Bello WPtel: [address] [place] [id number] [place] [address] Follow up 07/01/2013 Appointment: Rika Bello WPtel: [address] [place] [address] Lab Draw 06/28/2013 Patient Education: Patient Medication [...] 900mg tid. 06/27/2013 Appointment: Tessie Motta WPtel: [address] [place], [place] [phone] Other 06/27/2013 Patient Education: Patient Medication Summary Completed 06/27/2013 Appointment: Tessie Motta WPtel: [address] [place], [place] [phone] Other 06/24/2013 Visit Plan: Diabetes Mellitus - [...] THE AFTERNOON. 06/10/2013 Appointment: Tessie Motta WPtel: [phone] Follow up 06/10/2013 Patient Education: Patient Medication Summary Completed 06/10/2013 Appointment: Tessie Motta WPtel: [phone] [place] Follow up 06/06/2013 Visit Plan: Sinusitis [...] acutely worsen. 05/07/2013 Appointment: Tessie Motta WPtel: [address] [place], [place] [phone] Follow up 05/07/2013 Patient Education: Patient Medication Summary Completed 05/07/2013 Appointment: Tessie Motta WPtel: [facility]9 [facility] Follow up 04/30/2013 Visit Plan: Edema - [...] acute changes. 04/16/2013 Appointment: Tessie Motta WPtel: [address] [place], [place] [phone] Follow up 04/16/2013 Patient Education: Patient Medication Summary Completed 04/16/2013 Appointment: Tessie Motta WPtel: [facility]4 [facility] Follow up 04/04/2013 Visit Plan: Lumbago-continue physical [...] peripheral edema. 03/21/2013 Appointment: Rika Bello WPtel: [facility]5 [facility] [place] [address] Follow up 03/21/2013 Patient Education: Patient Medication Summary Completed 03/21/2013 Appointment: Tessie Motta WPtel: [address] [place], [place] [phone] Follow up 03/20/2013 Appointment: Tessie Motta WPtel: [address] [place], [place] [phone] Follow up 03/05/2013 Visit Plan: Edema-significantly improved- [...] less controlled. 02/12/2013 Appointment: Rika Bello WPtel: [facility]5 [phone] [facility] follow up 02/12/2013 Patient Education: Patient [...] Dyspnea - recommended pt to see new obstetrics technician when he gets to [facility] for further evaluation and work-up. 02/04/2013 Appointment: Tessie Motta WPtel: [facility]5 [facility] Follow up 02/04/2013 Patient Education: Patient Medication [...] not improve. 01/17/2013 Appointment: Rika Bello WPtel: [facility]5 [phone] Follow up 01/17/2013 Patient Education: Patient Medication Summary Completed 01/17/2013 Patient Education: Hypertension Completed 01/17/2013 Appointment: Tessie Motta WPtel: [facility]5 [facility] [place] Follow up 01/16/2013 Appointment: Tessie Motta WPtel: [phone] [place] Follow up 01/10/2013 Appointment: Rika Bello WPtel: [address] [place] [address] [place] Lab Draw 01/01/2013 Patient Education: Patient [...] Hypothyroidism-check labs 12/31/2012 Appointment: Rika Bello WPtel: [phone] [phone] Follow up 12/31/2012 Appointment: Rika Bello WPtel: 1017 [phone] Sick 12/31/2012 Patient Education: Patient Medication Summary [...] Check labs. 12/20/2012 Appointment: Rika Bello WPtel: [address] [place], [place] [id number] Sick 12/20/2012 Patient Education: Patient Medication Summary Completed 12/20/2012 Patient Education: Hypertension Completed 12/20/2012 Appointment: Tessie Motta WPtel: [address] [place] [address] Lab Draw 11/05/2012 Patient Education: Patient Medication Summary Completed 11/05/2012 Visit Plan: Bronchitis - acute case of bronchitis identified. Pt has been given antibiotics, breathing treatments as appropriate, and pt has been instructed to call if symptoms are not improved, or if symptoms acutely worsen. 10/29/2012 Appointment: Tessie Motta WPtel: [address] [place], [place] [phone] Sick 10/29/2012 Patient Education: Patient Medication Summary Completed 10/29/2012 Visit Plan: Joint Injection-left SI joint - Pt was given post - injection instructions. The pt has been advised to use antiinflammatories post injection today, ice to the injected site, call if redness, warmth, or increased pain occurs at the site of injection. 09/21/2012 Appointment: Rika Bello WPtel: [facility]5 [phone] Follow up 09/21/2012 Patient Education: Patient Medication [...] of control. 09/06/2012 Appointment: Tessie Motta WPtel: [phone] Follow up 09/06/2012 Patient Education: Patient Medication [...] readings are starting to become less controlled. Bmaxwgdk-lgqpyvls-vervqzni probiotic-continue to hold metformin and repeat labs before appt in 2 weeks. Call for abd pain, worsening diarrhea, or other concerns. 08/23/2012 Appointment: Tessie Motta WPtel: [facility] Follow up 08/23/2012 Patient Education: Patient Medication [...] OF PLAN. 08/13/2012 Appointment: Rika Bello WPtel: 1018 [phone] [place] Follow up 08/13/2012 Patient Education: Patient [...] acute concerns. 08/07/2012 Appointment: Rika Bello WPtel: [facility]5 [phone] [place] Other 08/07/2012 Patient Education: Patient Medication Summary Completed 08/07/2012 Patient Education: Hypertension Completed 08/07/2012 Visit Plan: UA-sent for culture 07/19/2012 Appointment: Rika Bello WPtel: [phone] [place] Lab Draw 07/19/2012 Patient Education: Patient [...] directed 07/06/2012 Appointment: Rika Bello WPtel: 1015 [phone] Sick 07/06/2012 Patient Education: Patient Medication Summary [...] today 06/07/2012 Appointment: Tessie Motta WPtel: [phone] [facility] Follow up 06/07/2012 Appointment: Tessie Motta WPtel: [facility] Follow up 06/07/2012 Patient Education: Patient Medication [...] days. 05/28/2012 Appointment: Rika Bello WPtel: [phone] Follow up 05/28/2012 Patient Education: Patient Medication [...] peripheral edema. 05/17/2012 Appointment: Rika Bello WPtel: [phone] [facility] [place] UP 05/17/2012 Patient Education: Patient Medication [...] injection today in the office 05/02/2012 Appointment: KaliaTessie WPtel: [facility] Follow up 05/02/2012 Patient Education: Patient Medication Summary Completed 05/02/2012 Patient Education: Hypertension Completed 05/02/2012 Appointment: Tessie Motta WPtel: [facility] Follow up 04/25/2012 Visit Plan: Sinusitis - [...] acute concerns. 04/10/2012 Appointment: Rika Bello WPtel: [phone] Follow up 04/10/2012 Patient Education: Patient Medication [...] I&D on Monday02/27/2012 Appointment: Rika Bello WPtel: [facility] [address] Follow up 02/27/2012 Patient Education: Patient Medication [...] to thighs. 02/15/2012 Appointment: Rika Bello WPtel: [phone] [place] Follow up 02/15/2012 Patient Education: Patient Medication [...] toes to thighs. RX sent to patient's [facility]. Chest xray at the hospital as well. [...] of urine. 02/01/2012 Appointment: Rika Bello WPtel: 1015 [facility] [place] [address] Other 02/01/2012 Patient Education: Patient Medication Summary [...] left buttocks 12/14/2011 Appointment: Tessie Motta WPtel: 1015 [facility] [place] Other 12/14/2011 Patient Education: Patient Medication Summary Completed 12/14/2011 Appointment: Tessie Motta WPtel: [phone] [facility] Follow up 12/08/2011 Visit Plan: N/V/D - [...] less controlled. 11/30/2011 Appointment: Rika Bello WPtel: [phone] Other 11/30/2011 Patient Education: Patient Medication Summary [...] back pain. 11/17/2011 Appointment: Tessie Motta WPtel: [facility] [place] Other 11/17/2011 Patient Education: Patient Medication Summary [...] - uncontrolled - will consult her primary anesthetist for assistance with control her her heart rate. Ulcer of toe - continue with topical antibiotics as previously directed, return to clinic as previously directed, call for acute change in symptoms, worsening redness, warmth, discharge. 11/03/2011 Appointment: Tessie Motta WPtel: [address] [place] [address] [place] Other 11/03/2011 Patient Education: Patient Medication Summary [...] warmth, discharge. 10/24/2011 Appointment: Tessie Motta WPtel: [facility] Other 10/24/2011 Patient Education: Patient Medication Summary [...] with lymphoma. 09/26/2011 Appointment: Rika Bello WPtel: [phone] [place] Other 09/26/2011 Patient Education: Patient Medication [...] Hypertension Completed 2011 Appointment: Tessie Motta WPtel: [address] [place] [address] Other 09/05/2011 Visit Plan: Sinusitis - Pt [...] the medication. 09/01/2011 Appointment: Tessie Motta WPtel: [address] [place] [address] Other 09/01/2011 Patient Education: Patient Medication Summary Completed 09/01/2011 Visit Plan: Sinusitis - continue with ciprofloxacin and start on corcidin HBP. Anxiety - start the xanax 0.5mg 1/2 pill twice daily. 08/15/2011 Appointment: Tessie Motta WPtel: [address] [place] [address] Other 08/15/2011 Appointment: Tessie Motta WPtel: [address] [place] [address] Other 08/15/2011 Patient Education: Patient Medication Summary [...] Plan for demerol injection today at the [facility]. 08/09/2011 Appointment: Rika Bello WPtel: [address] [place] [address] Other 08/09/2011 Patient Education: Patient Medication Summary [...] not resolve 08/01/2011 Appointment: Rika Bello WPtel: [address] [place] [address] Other 08/01/2011 Patient Education: Patient Medication Summary Completed 08/01/2011 Appointment: Rika Bello WPtel: [address] [place] [address] [place] Other 07/26/2011 Appointment: Tessie Motta WPtel: [address] [place] [address] [place] Other 07/18/2011 Visit Plan: Diabetes Mellitus - [...] sparingly. 06/20/2011 Appointment: Tessie Motta WPtel: [phone] [id number] Other 06/20/2011 Patient Education: Patient Medication Summary [...] 1 month. 04/18/2011 Appointment: Tessie Motta WPtel: [phone] [id number] Other 04/18/2011 Patient Education: Patient Medication Summary Completed 04/18/2011 Patient Education: High Blood Pressure: Essential Hypertension Completed 2010 Appointment: Tessie Motta WPtel: [phone] [id number] Other 04/12/2011 Appointment: Tessie Motta WPtel: [phone] [id number] Other 02/16/2011 Referral: Matt Pavon HPtel:[phone] [facility] [place] Referral Initiated Referral: Yareli Raines Referral Appointment Requested Referral: Raul Shelley Referral Appointment Requested Referral: Mimi Mejia Referral Initiated Instructions Comment Toprol XL increased to 100mg po q [...] change in symptoms, worsening redness, warmth, discharge. Fjolutvj-dzdyuclozkja-joqvo labs today-patient has been given orders multiple [...] Call if symptoms do not show improvement. INCREASE LEVEMIR TO 25 UNITS TWICE DAILY-IF [...] - will refer to Dr. Mejia . Sinusitis - Pt has acute infection [...] up in the office as directed . Hypertension - well controlled - continue with current medications, continue with no added salt diet. Pt has been encouraged to exercise daily. The pt has been advised to call the office if there are any acute concerns about change in blood pressure readings at home. ER-ytyrfnmipwal-ngyotgrsm strict diet and exercise with patient Low qyhcrgopk-rpwhjkeu-hfatmodk to monitor Abd gkup-iqbjyfru-ap changes . Diabetes Mellitus - controlled - per [...] gabapentin from 600mg tid to 900mg tid. INCREASE LEVEMIR TO 10 UNITS TWICE DAILY [...] further attempt to reduce peripheral edema. . Imj-prdrfgcozu-zx changes Anemia-check cbc today Dental infection-on clindamycin per Dr Bryant-start probiotics Also needs to monitor blood sugars closely . Cellulitis - culture of wound today [...] any other acute changes, questions, or concerns. TOUJEO 40 units BID Novolg 10 units [...] daily and taper off as directed . Hypertension - well controlled - continue [...] leg-start oral abx and bactroban as directed Rmydp-ixeipibrulxe-ooz markie wraps, elevate leg, and again instructed patient to cut back on pop and salty foods. . Sinusitis - Pt has acute infection [...] symptoms are not controlled with the medication. FOR CHOLESTEROL - THE NEW DOSE OF [...] months based on previous levels of control. Pt has been instructed to stop eating [...] occurs at the site of injection. . Diabetes Mellitus - controlled - per [...] readings are starting to become less controlled. Ddgcfwbu-ifyymvkb-avfgpjrh probiotic-continue to hold metformin and repeat labs before appt in 2 weeks. Call for abd pain, worsening diarrhea, or other concerns. check UA . Dysuria-urinary incontinence-culture urine HTN-elevated today-monitor at home -follow up with anesthetist . Open wound of bxd-yzbozdga-otoqgzle with dressing changes as directed-call for increase [...] symptom management sparingly. . Open wound right zgv-mxyhdv-opqo if opens up Edema - pt has been advised to elevate legs to prevent dependent edema, compression has been recommended to help to naturally decrease peripheral edema. Diuretic use has been discussed and pt has been instructed in appropriate use of such medication as necessary to further attempt to reduce peripheral edema. . Hxervdu-mtrziponp-jqez head injury on 12/05-did not go to ER-patient sent for STAT CT scan of head-schedule appt with Dr Dyer Adrenal insufficiency-patient suddenly stopped prednisone-instructed patient to restart and taper prednisone as directed Rib nkoi-cloro-hmbkhk fall-xray ribs START CHECKING BLOOD SUGARS!!!! BRING [...] to allow for greater blood glucose control. HXL-ktreesfdpj-sp changes in medications at this time. Dysuria-UA [...] attempt to reduce peripheral edema. Dysuria-check UA . Open wound of leg-debrided and cleaned [...] DRINKS. REPEAT LABS IN 2 WEEKS. . ADMIT FROM CLINIC TO HOSPITAL - [...] - uncontrolled - will consult her primary anesthetist for assistance with control her her heart [...] daily as needed #60 with next refill . Bister of foot-dressing changes discussed with patient and instructed her to keep her foot clean and dry-STOP WEARING FLIP FLOPS as they are causing friction over blistered area. Keep follow up appointment as scheduled. Call for redness, drainage or other s/s of infection. Holter monitor x 48 hours. You will go [facility] the [facility] on MONDAY, August 14 at 1:30pm to have it put on. You appt here Monday is at 3:30pm. 1 liter Normal saline IV today at the hospital. Continue your blood pressure medications for the next week-except HOLD LISINOPRIL/HCTZ I [facility] Start it today. . Sinusitis - Pt [...] for diflucan-call if symptoms do not resolve [place] balm over the counter for the knee. [...] to further attempt to reduce peripheral edema. Immknwakyf-dhuughpj-vj change in treatment-continue compression hose-decrease salt/sodium in diet-call if symptoms worsen or do not resolve Jlczkngak-wqjughf-hbjrxnmf nasonex to twice daily as directed pt [...] Her cousins were with her at the [facility] today and they all agreed that she should not be driving and that she needs to be in assisted living. . Edema--recommend patient be admitted for further [...] with results.Patient and verbalized understanding of plan. AWT-zffnsgohjze-jdpvq labs-monitor blood pressure and heart rate closely- recommend ER if symptoms do not improve. . Patient presented with acute symptoms of stroke. Accompanied to ER for emergent evaluation. . Patient presented with acute symptoms of stroke. Accompanied to ER for emergent evaluation. . UA negative STOP THE PROBIOTICS START [...] WILL CALL HER WITH THE RESULTS. . Edema - pt has been advised [...] UP APPOINTMENT WITH [facility] 4 STATES. . UA negative -no culture indicated . ER follow up - Dr. 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 INCREASE LEVEMIR TO 25 UNITS IN THE [...] Q HS RESCHEDULE APPT WITH DR YANNA HoWfsaezwjk-upkixmrol-jv for bactroban ointment provided and instructed on use UVK-yeckcslpkh-cx change in medications Mildly elevated liver enzymes-discussed [...] Dyspnea - recommended pt to see new obstetrics technician when he gets to [facility] for further evaluation and work-up. refer [...] patient is stable, monitor for acute changes. INCREASE LEVEMIR TO 15 UNITS IN THE [...] allow for greater blood glucose control. . Hypertension - well controlled - [...] every 6 hours as needed for pain. . Medicare Exam - today we discussed [...] toes to thighs. RX sent to patient's [facility]. Chest xray at the hospital as well. [...] control. Yeast infection -rx for nystatin powder AJEB-bdegvastq-dgzefw gnldtbosd-bzgs-bqbipyt is oxygen dependent due to severely compromised pulmonary and cardiac systems-will send orders to [facility] to continue oxygen . Diabetes Mellitus - [...] control. Yeast infection -rx for nystatin powder QMTT-dpagholkx-gfzuat rgwcotamj-obfa-acjzrrn is oxygen dependent due to severely compromised pulmonary and cardiac systems-will send orders to [facility] to continue oxygen . Diabetes Mellitus - [...] control. Yeast infection -rx for nystatin powder OTYB-xtksithug-gkmkir wzsvetfew-rphs-ukkeqvy is oxygen dependent due to severely compromised pulmonary and cardiac systems-will send orders to [facility] to continue oxygen . Diabetes Mellitus - [...] further attempt to reduce peripheral edema. . Open wound of right leg-debrided today in the office- instructed on wound care-follow up as directed. Call with any questions, concerns, or worsening symptoms. Culture of wound today in the office-RX for abx sent to patient's pharmacy and instructed on use. Patient verbalized understanding of plan. Take lasix daily x 5 days Take [...] and return Monday for removal of IPRO Pyfvyzm-njgbyrbmsx-oq changes in medications-recommend counseling-patient refuses Weakness-patient is deconditioned-refuses PT -recommend patient start walking more . Cellulitis - continue with oral antibiotics [...] change in blood pressure readings at home. d/c LEVEMIR START TOUJEO 10UNITS DAILY AT [...] your appt with her -she is a process control specialist . Diabetes Mellitus - ucontrolled- I [...] to become less controlled. Low potassium-check labs KZX-jtykujpmid-ne changes Afib-check digoxin level with labs Abdominal pain-refill levsin for prn use -call if pain uncontrolled DR Yareli Raines-you need to reschedule your appt with her -she is a process control specialist . Diabetes Mellitus - ucontrolled- I [...] to become less controlled. Low potassium-check labs JZD-fsrbgyabbt-hv changes Afib-check digoxin level with labs Abdominal [...] PAIN MANAGEMENT FOR INJECTIONS STOP BY [employer] FOR [employer] CPAP SUPPLIES . Hypertension - [...] every night DM-check Hgb A1C Hypothyroidism-check level Rdrmrsb-rqqbuunujm-dlr well controlled-increase cymbalta-recommend counseling . Diabetes Mellitus [...] she needs to...RESCHEDULE APPT WITH DR RAINES HVH-ldcihmalhc-bq change in medications CPAP NEBULIZER CHECK UA [...] adjustment of insulin -patient and verbalized understanding. d/c LEVEMIR START TOUJEO 10UNITS DAILY AT [...]
[2018-06-04] MEDS ORDERED: LORazepam INJ 2 MG/ML (ATIVAN) VIAL IVP ONE (12:45)
--- OUTSIDE RECORDS SUMMARY | 2018-06-04 13:00 | XMS REPORT | CCD ---
Author Author [facility]ie [facility] Organization [facility] Address [address] [place] [address] Phone Care Team Providers Care Workforce Specialist Name Role Phone Tessie Motta PP Unavailable CCM Unavailable Summary Purpose Interface Exchange Insurance Providers Payer name Policy type / Coverage type Covered constitution party ID Effective Begin Date Effective End Date WPS Medicare Part B Medicare Part B [id number] 2015 Unknown [facility] Medicare Part B [id number] Unknown Family history Son Diagnosis Age At [...] College Graduate 08/21/[address]: 355209647 Never smoker 02/11/[address]: 077215874 Never drinks alcohol 02/11/2011 Has the patient ever used illegal drugs? Unknown Has never used illegal drugs 02/11/2011 Allergies, Adverse Reactions, Alerts Substance Reaction Codes Entered Date Inactivated Date Status CODEINE RxNorm: 2670 02/11/2011 No Inactive Date Active * NO KNOWN FOOD ALLERGIES Unknown 02/01/2012 No Inactive Date Active cefdinir RxNorm: 46644 08/07/2012 No Inactive Date Active PENICILLINS Unknown 02/11/2011 No Inactive Date Active SULFA (SULFONAMIDES) Unknown 02/11/2011 No Inactive Date Active Tetanus Unknown 02/11/2011 No Inactive Date Active Past Medical History Illness Codes Condition Status Onset Date Resolved Date Chronic maxillary sinusitis ICD-9: 473.0 ICD-10: J32.0 Active 01/30/2017 Unknown Cough ICD-9: 786.2 ICD-10: R05 Active 11/09/2015 Unknown Type 2 diabetes mellitus with hyperglycemia ICD-9: 250.00 ICD-10: E11.65 Active 05/23/2016 Unknown Essential (primary) hypertension ICD-9: 401.1 ICD-10: I10 Active 06/13/2017 Unknown Generalized anxiety disorder ICD-9: 300.02 ICD-10: [...] Problems Condition Codes Effective Dates Condition Status Chronic maxillary sinusitis ICD-9: 473.0 ICD-10: J32.0 01/30/2017 Active Cough ICD-9: 786.2 ICD-10: R05 11/09/2015 Active Type 2 diabetes mellitus with hyperglycemia ICD-9: 250.00 ICD-10: E11.65 05/23/2016 Active Essential (primary) hypertension ICD-9: 401.1 ICD-10: I10 06/13/2017 Active Generalized anxiety disorder ICD-9: 300.02 ICD-10: [...] Date Stop Date Status Fill Instructions Jerry Marley U-300 Insulin 300 unit/mL (1.5 mL) subcutaneous pen RxNorm: 2717046 25 in am and 55 at HS Unit(s) SQ BID per dr raines 05/16/2018 06/14/2018 Active Xanax 0.5 mg tablet RxNorm: 030056 1 Tablet(s) BID as needed 05/16/2018 06/14/2018 Active nystatin 100,000 unit/mL oral suspension RxNorm: 685442 Unit(s) 5 Milliliter(s) PO QID swish and swallow 05/07/20182017 Inactive Tessalon Perles 100 mg capsule RxNorm: 218366 Capsule(s) Capsule(s) 2 Capsule(s) PO TID as needed 05/03/2018 No Stop Date Active Percocet 10 mg-325 mg tablet RxNorm: 3120209 1-2 Tablet(s) PO Q6 PRN 05/03/2018 05/17/2018 Active FreeStyle Test strips RxNorm: USE ONE STRIP TO CHECK GLUCOSE 4 TIMES DAILY 04/30/2018 No Stop Date Active promethazine 25 mg tablet RxNorm: 847522 Tablet(s) 1 Tablet(s) PO Q6 PRN TAKE NEEDED ONLY!!! 04/27/2018 No Stop Date Active digoxin 125 mcg tablet RxNorm: 165363 TAKE 1 TABLET BY MOUTH ONCE DAILY 04/23/2018 No Stop Date Active Lasix 40 mg tablet RxNorm: 592925 TAKE 1 TABLET BY MOUTH TWICE DAILY 04/19/2018 No Stop Date Active Vitamin D2 50,000 unit capsule RxNorm: 2097772 1 Capsule(s) PO QW 04/17/2018 06/15/2018 Active Tessalon Perles 100 mg capsule RxNorm: 593336 Capsule(s) Capsule(s) 2 Capsule(s) PO TID as needed 04/17/2018 05/02/2018 Inactive Xanax 0.5 mg tablet RxNorm: 967293 1 Tablet(s) BID as needed 04/09/2018 05/08/2018 Inactive Percocet 10 mg-325 mg tablet RxNorm: 5512108 1-2 Tablet(s) PO Q6 PRN 04/05/2018 04/19/2018 Inactive colestipol 1 gram tablet RxNorm: 9499715 TAKE ONE TABLET BY MOUTH TWICE DAILY 03/30/2018 No Stop Date Active Tessalon Perles 100 mg capsule RxNorm: 833127 Capsule(s) Capsule(s) 2 Capsule(s) PO TID as needed 03/21/2018 04/16/2018 Inactive nystatin 100,000 unit/mL oral suspension RxNorm: 769417 Unit(s) 5 Milliliter(s) PO QID swish and swallow 03/21/20182017 Inactive Xanax 0.5 mg tablet RxNorm: 614797 Tablet(s) BID as needed 04/09/2018 Inactive Slow Fe 47.5 mg iron tablet,extended release RxNorm: 1 Tablet(s) PO every other day 03/12/2018 04/10/2018 Inactive Percocet 10 mg-325 mg tablet RxNorm: 8716812 1-2 Tablet(s) PO Q6 PRN 03/12/2018 03/26/2018 Inactive Slow Fe 47.5 mg iron tablet,extended release RxNorm: 1 Tablet(s) PO 3 x week 02/28/2018 03/11/2018 Inactive promethazine 25 mg tablet RxNorm: 501470 Tablet(s) 1 Tablet(s) PO Q6 PRN TAKE NEEDED ONLY!!! 02/21/2018 04/26/2018 Inactive gabapentin 600 mg tablet RxNorm: 364501 Tablet(s) TAKE ONE & ONE-HALF TABLETS BY MOUTH THREE TIMES DAILY 02/20/20182018 Active Cymbalta 60 mg capsule,delayed release RxNorm: 402639 1 Capsule(s) PO daily take with 30mg tablet 02/20/2018 08/18/2018 Active Cymbalta 30 mg capsule,delayed release RxNorm: 942790 Capsule(s) TAKE ONE CAPSULE BY MOUTH ONCE DAILY - TAKE WITH THE 60 MG DOSE FOR A TOTAL OF 90 MG 02/20/2018 08/18/2018 Active Vitamin D2 50,000 unit capsule RxNorm: 3081581 1 Capsule(s) PO QW 02/20/2018 02/19/2018 Inactive Vitamin D2 50,000 unit capsule RxNorm: 9042465 1 Capsule(s) PO QW 02/20/2018 04/16/2018 Inactive mupirocin 2 % topical ointment RxNorm: 484823 APPLY TO SORE IN BELLY BUTTON TWICE DAILY 02/15/2018 No Stop Date Active Percocet 10 mg-325 mg tablet RxNorm: 7516285 1-2 Tablet(s) PO Q6 PRN 02/14/2018 02/28/2018 Inactive Toumary SoloStar U-300 Insulin 300 unit/mL (1.5 mL) subcutaneous pen RxNorm: 4764040 40 Unit(s) SQ BID per dr raines 02/07/2018 03/08/2018 Inactive nystatin 100,000 unit/mL oral suspension RxNorm: 952184 5 Milliliter(s) PO QID swish and swallow 02/02/2018 02/11/2018 Inactive mupirocin 2 % topical ointment RxNorm: 002408 1 Application TOP BID 01/30/2018 02/08/2018 Inactive Tessalon Perles 100 mg capsule RxNorm: 734402 Capsule(s) 2 Capsule(s) PO TID as needed 01/23/2018 03/20/2018 Inactive Xanax 0.5 mg tablet RxNorm: 503806 Tablet(s) TAKE ONE TABLET BY MOUTH THREE TIMES DAILY NEEDED 01/17/20182017 Inactive ropinirole 1 mg tablet RxNorm: 177824 1 Tablet(s) PO BID 201705/10/2018 Inactive digoxin 125 mcg tablet RxNorm: 659685 1 Tablet(s) PO daily 04/22/2018 Inactive Percocet 10 mg-325 mg tablet RxNorm: 8184399 1-2 Tablet(s) PO Q6 PRN 01/04/2018 01/18/2018 Inactive Percocet 10 mg-325 mg tablet RxNorm: 2972462 1-2 Tablet(s) PO Q6 PRN 01/02/2018 01/03/2018 Inactive promethazine 25 mg tablet RxNorm: 496492 Tablet(s) 1 Tablet(s) PO Q6 PRN TAKE NEEDED ONLY!!! 01/02/2018 02/20/2018 Inactive pantoprazole 40 mg tablet,delayed release RxNorm: 047199 TAKE 1 TABLET BY MOUTH ONCE DAILY 12/25/2017 No Stop Date Active mupirocin 2 % topical ointment RxNorm: 783998 1 Application TOP BID 12/22/2017 12/31/2017 Inactive fluconazole 150 mg tablet RxNorm: 475887 1 Tablet(s) PO every other day x 3 doses 12/14/2017 12/23/2017 Inactive Percocet 10 mg-325 mg tablet RxNorm: 2349621 1-2 Tablet(s) PO Q6 PRN 12/13/2017 12/27/2017 Inactive hyoscyamine 0.125 mg sublingual tablet RxNorm: 3951895 Tablet(s) 1 Tablet(s) SL TID as needed 12/13/2017 04/11/2018 Inactive nystatin 100,000 unit/gram topical powder RxNorm: 864317 APPLY POWDER TOPICALLY 4 TIMES DAILY 12/11/2017 No Stop Date Active Xanax 0.5 mg tablet RxNorm: 800693 Tablet(s) TAKE ONE TABLET BY MOUTH THREE TIMES DAILY NEEDED 12/06/20172017 Inactive nitrofurantoin 50 mg capsule RxNorm: 090145 1 Capsule(s) PO BID 12/01/2017 11/30/2017 Inactive take probiotic BID x 7 days nitrofurantoin 50 mg capsule RxNorm: 798480 1 Capsule(s) PO BID 12/01/2017 12/07/2017 Inactive take probiotic BID x 7 days mupirocin 2 % topical ointment RxNorm: 550792 1 Application TOP BID 11/27/2017 12/06/2017 Inactive Tessalon Perles 100 mg capsule RxNorm: 341073 Capsule(s) 2 Capsule(s) PO TID as needed 11/21/2017 01/22/2018 Inactive nystatin 100,000 unit/mL oral suspension RxNorm: 036427 5 Milliliter(s) PO QID swish and swallow 11/17/2017 11/26/2017 Inactive nystatin 100,000 unit/mL oral suspension RxNorm: 945521 5 Milliliter(s) PO QID swish and swallow 11/17/2017 11/16/2017 Inactive Toprol XL 100 mg tablet,extended release RxNorm: 430408 TAKE ONE TABLET BY MOUTH TWICE DAILY 11/15/2017 No Stop Date Active ropinirole 1 mg tablet RxNorm: 649106 Tablet(s) BID 11/14/2017 01/10/2018 Inactive Diflucan 150 mg tablet RxNorm: 777269 Tablet(s) every other day 1 Tablet(s) PO every other day 11/14/2017 11/16/2017 Inactive Percocet 10 mg-325 mg tablet RxNorm: 3849774 1-2 Tablet(s) PO Q6 PRN 11/09/2017 11/23/2017 Inactive Flonase Allergy Relief 50 mcg/actuation nasal spray, suspension RxNorm: 8207494 2 Brandon NASAL daily 11/06/20172017 Inactive cyclobenzaprine 10 mg tablet RxNorm: 475561 Tablet(s) TABLET(S) 1 TABLET(S) PO NEEDED TAKE 1 TABLET BY MOUTH EVERY 8 HOURS NEEDED 2017 No Stop Date Active Cymbalta 30 mg capsule,delayed release RxNorm: 111015 TAKE ONE CAPSULE BY MOUTH ONCE DAILY - TAKE WITH THE 60 MG DOSE FOR A TOTAL OF 90 MG 02/19/2018 Inactive Lantus Solostar U-100 Insulin 100 unit/mL (3 mL) subcutaneous pen RxNorm: 819882 Unit(s) SQ 35 units QAM and 55 units QHS Unit(s) SQ 10/27/2017 02/07/2018 Inactive Wants insulin pens Percocet 10 mg-325 mg tablet RxNorm: 6228776 1-2 Tablet(s) PO Q6 PRN 10/27/2017 11/08/2017 Inactive promethazine 25 mg tablet RxNorm: 736155 Tablet(s) 1 Tablet(s) PO Q6 PRN TAKE NEEDED ONLY!!! 10/27/2017 01/01/2018 Inactive Xanax 0.5 mg tablet RxNorm: 652575 Tablet(s) TAKE ONE TABLET BY MOUTH THREE TIMES DAILY 10/20/2017 04/08/2018 Inactive Tessalon Perles 100 mg capsule RxNorm: 251418 Capsule(s) 2 Capsule(s) PO TID as needed 10/19/2017 11/20/2017 Inactive Diflucan 150 mg tablet RxNorm: 245742 1 Tablet(s) PO every other day 10/15/2017 11/13/2017 Inactive Percocet 10 mg-325 mg tablet RxNorm: 9378179 1-2 Tablet(s) PO Q6 PRN 10/06/2017 10/20/2017 Inactive pantoprazole 40 mg tablet,delayed release RxNorm: 437671 1 Tablet(s) PO BID 10/03/2017 03/31/2018 Inactive Cymbalta 60 mg capsule,delayed release RxNorm: 036751 TAKE ONE CAPSULE BY MOUTH ONCE DAILY 09/21/2017 02/19/2018 Inactive Diflucan 150 mg tablet RxNorm: 432878 1 Tablet(s) PO every other day 09/15/2017 09/19/2017 Inactive hyoscyamine 0.125 mg sublingual tablet RxNorm: 0105839 1 Tablet(s) SL TID as needed 09/08/2017 12/12/2017 Inactive Lantus Solostar U-100 Insulin 100 unit/mL (3 mL) subcutaneous pen RxNorm: 316441 Unit(s) SQ 35 units QAM and 55 units QHS Unit(s) SQ 09/06/2017 09/20/2017 Inactive Wants insulin pens Lasix 40 mg tablet RxNorm: 516754 TAKE ONE TABLET BY MOUTH TWICE DAILY 08/25/2017 04/18/2018 Inactive ropinirole 1 mg tablet RxNorm: 077003 TAKE ONE TABLET BY MOUTH AT BEDTIME 08/25/2017 11/13/2017 Inactive Lantus U-100 Insulin 100 unit/mL subcutaneous solution RxNorm: 681234 35 units QAM and 55 units QHS Unit(s) SQ 08/21/2017 09/05/2017 Inactive Tessalon Perles 100 mg capsule RxNorm: 350457 Capsule(s) 2 Capsule(s) PO TID as needed 08/18/2017 10/18/2017 Inactive Percocet 10 mg-325 mg tablet RxNorm: 6928844 1-2 Tablet(s) PO Q6 PRN 08/16/2017 08/30/2017 Inactive pantoprazole 40 mg tablet,delayed release RxNorm: 092871 TAKE ONE TABLET BY MOUTH TWICE DAILY 08/14/2017 08/13/2017 Inactive pantoprazole 40 mg tablet,delayed release RxNorm: 772956 1 Tablet(s) PO daily 08/14/2017 10/02/2017 Inactive promethazine 25 mg tablet RxNorm: 608982 Tablet(s) 1 Tablet(s) PO Q6 PRN TAKE NEEDED ONLY!!! 08/11/2017 10/26/2017 Inactive omeprazole 20 mg capsule,delayed release RxNorm: 977734 1 Capsule(s) PO daily TAKE 1 CAPSULE BY MOUTH ONCE DAILY 08/07/2017 10/26/2017 Inactive nystatin 100,000 unit/mL oral suspension RxNorm: 132427 5 Milliliter(s) PO QID swish and swallow 08/07/2017 08/16/2017 Inactive mupirocin 2 % topical ointment RxNorm: 684709 APPLY TO SORE IN BELLY BUTTON TWICE DAILY 08/07/2017 02/14/2018 Inactive omeprazole 20 mg capsule,delayed release RxNorm: 217212 1 Capsule(s) PO BID TAKE 1 CAPSULE BY MOUTH TWICE DAILY 08/03/2017 08/06/2017 Inactive Diflucan 150 mg tablet RxNorm: 996805 1 Tablet(s) PO daily 08/05/2017 Inactive hyoscyamine 0.125 mg sublingual tablet RxNorm: 4663128 1 Tablet(s) SL TID as needed 08/03/2017 09/01/2017 Inactive gentamicin 0.3 % eye drops RxNorm: 519401 2 Drop(s) ophthalmic (eye) TID 08/03/2017 08/09/2017 Inactive Levaquin 500 mg tablet RxNorm: 102799 1 Tablet(s) PO every other day x3 doses 07/27/2017 08/02/2017 Inactive gentamicin 0.3 % eye drops RxNorm: 015461 2 Drop(s) ophthalmic (eye) TID 07/27/2017 08/02/2017 Inactive dicyclomine 10 mg capsule RxNorm: 878232 1 Capsule(s) PO TID 08/02/2017 Inactive Levaquin 500 mg tablet RxNorm: 592368 1 Tablet(s) PO daily 12/201707/26/2017 Inactive Lantus U-100 Insulin 100 unit/mL subcutaneous solution RxNorm: 473082 INJECT 35 UNITS SUBCUTANEOUSLY IN THE MORNING AND 55 UNITS AT BEDTIME 07/24/2017 09/05/2017 Inactive Tessalon Perles 100 mg capsule RxNorm: 278249 2 Capsule(s) PO TID as needed 07/24/2017 08/17/2017 Inactive Percocet 10 mg-325 mg tablet RxNorm: 7116395 1-2 Tablet(s) PO Q6 PRN 07/21/2017 08/04/2017 Inactive promethazine 25 mg tablet RxNorm: 145841 1 Tablet(s) PO Q6 PRN 1 Tablet(s) PO Q6 PRN 07/19/2017 07/26/2017 Inactive Cartia XT 240 mg capsule,extended release RxNorm: 990784 1 Capsule(s) PO daily 06/27/2017 06/21/2018 Active potassium chloride ER 20 mEq tablet,extended release RxNorm: 530474 Tablet(s) TAKE ONE TABLET BY MOUTH ONCE DAILY 06/21/2017 No Stop Date Active Lantus U-100 Insulin 100 unit/mL subcutaneous solution RxNorm: 564542 35 units QAM and 55 units QHS Unit(s) SQ 06/21/2017 07/20/2017 Inactive Please provide 30 day supply Percocet 10 mg-325 mg tablet RxNorm: 7813810 1-2 Tablet(s) PO Q6 PRN 06/21/2017 07/05/2017 Inactive Cartia XT 180 mg capsule,extended release RxNorm: 509029 Capsule(s) BID 06/21/2017 06/26/2017 Inactive Xanax 0.5 mg tablet RxNorm: 727306 Tablet(s) TAKE ONE TABLET BY MOUTH THREE TIMES DAILY 06/21/2017 08/19/2017 Inactive digoxin 125 mcg tablet RxNorm: 464032 1 Tablet(s) PO daily 10/18/2017 Inactive gabapentin 600 mg tablet RxNorm: 397544 Tablet(s) TAKE ONE & ONE-HALF TABLETS BY MOUTH THREE TIMES DAILY 06/21/20172017 Inactive dicyclomine 10 mg capsule RxNorm: 442791 1 Capsule(s) PO TID 07/26/2017 Inactive Lantus U-100 Insulin 100 unit/mL subcutaneous solution RxNorm: 679904 35 units QAM and 55 units QHS Unit(s) SQ 06/13/2017 06/20/2017 Inactive Please provide 30 day supply potassium chloride ER 20 mEq tablet,extended release RxNorm: 475158 TAKE ONE TABLET BY MOUTH ONCE DAILY 06/02/2017 Inactive cyclobenzaprine 10 mg tablet RxNorm: 283835 Tablet(s) TABLET(S) 1 TABLET(S) PO NEEDED TAKE 1 TABLET BY MOUTH EVERY 8 HOURS NEEDED 201711/02/2017 Inactive Tessalon Perles 100 mg capsule RxNorm: 371516 2 Capsule(s) PO TID as needed 06/01/2017 07/23/2017 Inactive promethazine 25 mg tablet RxNorm: 565669 1 Tablet(s) PO Q6 PRN 1 Tablet(s) PO Q6 PRN 05/25/2017 06/01/2017 Inactive gabapentin 600 mg tablet RxNorm: 753851 TAKE ONE & ONE-HALF TABLETS BY MOUTH THREE TIMES DAILY 05/23/2017 06/20/2017 Inactive promethazine 25 mg tablet RxNorm: 916473 1 Tablet(s) PO Q6 PRN 1 Tablet(s) PO Q6 PRN 05/19/2017 05/24/2017 Inactive Flagyl 500 mg tablet RxNorm: 254365 1 Tablet(s) PO TID 201605/26/2017 Inactive Levaquin 500 mg tablet RxNorm: 529743 1 Tablet(s) PO daily 05/16/2017 Inactive Tessalon Perles 100 mg capsule RxNorm: 263067 2 Capsule(s) PO TID as needed 05/17/2017 05/31/2017 Inactive Flagyl 500 mg tablet RxNorm: 426239 1 Tablet(s) PO TID 201605/16/2017 Inactive hyoscyamine 0.125 mg sublingual tablet RxNorm: 1956572 1 Tablet(s) SL TID as needed 05/17/2017 06/12/2017 Inactive Levaquin 500 mg tablet RxNorm: 055944 1 Tablet(s) PO daily 05/23/2017 Inactive Cymbalta 60 mg capsule,delayed release RxNorm: 613830 1 Capsule(s) PO daily take with 30mg tablet 05/16/2017 08/13/2017 Inactive Bentyl 10 mg capsule RxNorm: 216730 1 Capsule(s) PO TID as needed 05/12/2017 06/10/2017 Inactive Levsin 0.125 mg tablet RxNorm: 3837604 1 Tablet(s) PO Q4 PRN 1-2 Tablet(s) PO Q4 PRN 05/11/2017 05/11/2017 Inactive nystatin 100,000 unit/gram topical powder RxNorm: 981682 Gram(s) APPLY POWDER TOPICALLY 4 TIMES DAILY 05/11/20172017 Inactive nystatin 100,000 unit/mL oral suspension RxNorm: 740424 4 Milliliter(s) PO QID swish and swallow 05/10/2017 05/19/2017 Inactive and Monistat over the counter colestipol 1 gram tablet RxNorm: 4398439 TAKE ONE TABLET BY MOUTH TWICE DAILY 05/08/2017 03/29/2018 Inactive Lantus 100 unit/mL subcutaneous solution RxNorm: 753420 30 units QAM and 50 units QHS Unit(s) SQ 04/28/2017 05/27/2017 Inactive Please provide 30 day supply Lantus Solostar 100 unit/mL (3 mL) subcutaneous insulin pen RxNorm: 612250 Unit( s) SQ BID 04/28/2017 06/13/2017 Inactive 30 units q am and 50units at night Lantus 100 unit/mL subcutaneous solution RxNorm: 323275 30 units QAM and 50 units QHS Unit(s) SQ 04/28/2017 04/27/2017 Inactive Please provide 30 day supply Levsin 0.125 mg tablet RxNorm: 2833978 1 Tablet(s) PO Q4 PRN 1-2 Tablet(s) PO Q4 PRN 04/25/2017 05/10/2017 Inactive promethazine 25 mg tablet RxNorm: 503245 1 Tablet(s) PO Q6 PRN 1 Tablet(s) PO Q6 PRN 04/25/2017 05/02/2017 Inactive Toprol XL 100 mg tablet,extended release RxNorm: 130776 TAKE ONE TABLET BY MOUTH TWICE DAILY 04/24/2017 11/14/2017 Inactive Flagyl 500 mg tablet RxNorm: 073171 1 Tablet(s) PO TID 201604/30/2017 Inactive Levaquin 500 mg tablet RxNorm: 717062 1 Tablet(s) PO daily 05/201604/27/2017 Inactive Voltaren 1 % topical gel RxNorm: 803902 4 Gram(s) TOP QID 04/1810/14/2017 Inactive mupirocin 2 % topical ointment RxNorm: 635217 1 Application TOP BID 04/18/2017 04/27/2017 Inactive apply to sore in belly button Lantus Solostar 100 unit/mL (3 mL) subcutaneous insulin pen RxNorm: 576250 Unit( s) SQ BID 04/18/2017 04/27/2017 Inactive 20 units q am and 50units at night levothyroxine 88 mcg tablet RxNorm: 292434 1 Tablet(s) PO daily TAKE ONE TABLET BY MOUTH ONCE DAILY 04/06/2017 04/17/2017 Inactive Xanax 0.5 mg tablet RxNorm: 134096 Tablet(s) TAKE ONE TABLET BY MOUTH THREE TIMES DAILY 04/04/2017 06/02/2017 Inactive Percocet 10 mg-325 mg tablet RxNorm: 6111264 1-2 Tablet(s) PO Q6 PRN 04/04/2017 04/18/2017 Inactive cyclobenzaprine 10 mg tablet RxNorm: 167961 TAKE ONE TABLET BY MOUTH EVERY 8 HOURS NEEDED 04/03/2017 06/01/2017 Inactive potassium chloride ER 20 mEq tablet,extended release RxNorm: 657546 1 Tablet(s) PO daily 03/28/2017 06/01/2017 Inactive nystatin 100,000 unit/gram topical cream RxNorm: 700086 1 Application TOP BID 03/27/2017 04/09/2017 Inactive Levsin 0.125 mg tablet RxNorm: 5402179 1 Tablet(s) PO Q4 PRN 1-2 Tablet(s) PO Q4 PRN 03/27/2017 04/24/2017 Inactive promethazine 25 mg tablet RxNorm: 774332 1 Tablet(s) PO Q6 PRN 03/23/2017 03/29/2017 Inactive nystatin 100,000 unit/gram topical powder RxNorm: 236453 APPLY POWDER TOPICALLY 4 TIMES DAILY 03/17/2017 05/10/2017 Inactive Percocet 10 mg-325 mg tablet RxNorm: 4469804 1-2 Tablet(s) PO Q6 PRN 03/09/2017 03/23/2017 Inactive Levsin 0.125 mg tablet RxNorm: 4831074 1-2 Tablet(s) PO Q4 PRN 03/06/2017 03/26/2017 Inactive promethazine 25 mg tablet RxNorm: 796050 1 Tablet(s) PO Q6 PRN 03/06/2017 03/13/2017 Inactive potassium chloride ER 20 mEq tablet,extended release RxNorm: 101474 1 Tablet(s) PO BID 02/23/2017 03/09/2017 Inactive Levsin/SL 0.125 mg sublingual tablet RxNorm: 3071057 1-2 Tablet(s) SL Q4 PRN 02/17/2017 03/26/2017 Inactive potassium chloride ER 20 mEq tablet,extended release RxNorm: 907979 1 Tablet(s) PO BID 02/17/2017 02/21/2017 Inactive magnesium oxide 400 mg tablet RxNorm: 686756 1 Tablet(s) PO daily 02/17/2017 02/21/2017 Inactive then twice weekly thereafter Levsin 0.125 mg tablet RxNorm: 5819215 1-2 Tablet(s) PO Q4 PRN 02/17/2017 02/16/2017 Inactive promethazine 25 mg tablet RxNorm: 590823 1 Tablet(s) PO Q6 PRN 02/10/2017 03/05/2017 Inactive Percocet 10 mg-325 mg tablet RxNorm: 2743305 1-2 Tablet(s) PO Q6 PRN 02/09/2017 02/23/2017 Inactive Cymbalta 60 mg capsule,delayed release RxNorm: 926078 1 Capsule(s) PO daily take with 30mg tablet 02/06/2017 05/06/2017 Inactive Cymbalta 30 mg capsule,delayed release RxNorm: 672200 1 Capsule(s) PO daily take with 60mg tablet 02/06/2017 02/19/2018 Inactive take with 60mg=90mg Vitamin D2 50,000 unit capsule RxNorm: 464644 1 Capsule(s) PO daily 01/17/2017 01/16/2017 Inactive daily x 6 mths Tresiba FlexTouch U-100 100 unit/mL (3 mL) subcutaneous insulin pen RxNorm: 5855209 40 Unit(s) SQ daily 01/17/20172016 Inactive Tresiba FlexTouch U-100 100 unit/mL (3 mL) subcutaneous insulin pen RxNorm: 4850101 40 Unit(s) SQ daily 01/17/20172016 Inactive Vitamin D2 50,000 unit capsule RxNorm: 667348 1 Capsule(s) PO daily 01/17/2017 10/26/2017 Inactive daily x 6 mths Cymbalta 30 mg capsule,delayed release RxNorm: 764771 1 Capsule(s) PO daily 01/16/2017 02/05/2017 Inactive take with 60mg=90mg Percocet 10 mg-325 mg tablet RxNorm: 1633783 1-2 Tablet(s) PO Q6 PRN 01/13/2017 01/27/2017 Inactive gabapentin 600 mg tablet RxNorm: 783429 TAKE ONE & ONE-HALF TABLETS BY MOUTH THREE TIMES DAILY 01/10/2017 05/09/2017 Inactive Percocet 10 mg-325 mg tablet RxNorm: 0364063 1-2 Tablet(s) PO Q6 PRN 12/21/2016 01/04/2017 Inactive Xanax 0.5 mg tablet RxNorm: 048598 Tablet(s) TAKE ONE TABLET BY MOUTH THREE TIMES DAILY 12/20/2016 02/15/2017 Inactive promethazine 25 mg tablet RxNorm: 595293 1 Tablet(s) PO Q6 PRN 12/16/2016 12/18/2016 Inactive prednisone 20 mg tablet RxNorm: 411587 2 Tablet(s) PO daily 12/14/2016 Inactive prednisone 20 mg tablet RxNorm: 738136 2 Tablet(s) PO daily 03/26/2017 Inactive Eliquis 5 mg tablet RxNorm: 2688098 1 Tablet(s) PO BID 201601/11/2017 Inactive doxycycline monohydrate 100 mg tablet RxNorm: 167755 1 Tablet(s) PO BID 12/13/2016 03/26/2017 Inactive give doxycyline hyclate cyclobenzaprine 10 mg tablet RxNorm: 962579 TAKE ONE TABLET BY MOUTH EVERY 8 HOURS NEEDED 12/09/2016 12/28/2016 Inactive Cymbalta 60 mg capsule,delayed release RxNorm: 627206 TAKE ONE CAPSULE BY MOUTH ONCE DAILY 11/30/2016 02/05/2017 Inactive promethazine 25 mg tablet RxNorm: 760440 2 Tablet(s) PO Q6 PRN 11/29/2016 12/16/2016 Inactive Percocet 10 mg-325 mg tablet RxNorm: 5943358 1-2 Tablet(s) PO Q6 PRN 11/24/2016 12/08/2016 Inactive mupirocin 2 % topical ointment RxNorm: 025248 1 Application TOP BID 11/11/2016 11/24/2016 Inactive Xanax 0.5 mg tablet RxNorm: 508040 Tablet(s) TAKE ONE TABLET BY MOUTH THREE TIMES DAILY 11/11/2016 12/19/2016 Inactive Belviq 10 mg tablet RxNorm: 6892871 1 Tablet(s) PO BID 201612/10/2016 Inactive Toprol XL 100 mg tablet,extended release RxNorm: 244244 TAKE ONE TABLET BY MOUTH TWICE DAILY 11/04/2016 04/02/2017 Inactive albuterol sulfate concentrate 2.5 mg/0.5 mL solution for nebulization RxNorm: 140019 USE ONE VIAL IN NEBULIZER EVERY 4 TO 6 HOURS NEEDED 11/03/2016 11/12/2016 Inactive Percocet 10 mg-325 mg tablet RxNorm: 0639741 1-2 Tablet(s) PO Q6 PRN 10/31/2016 11/23/2016 Inactive promethazine 25 mg tablet RxNorm: 921263 2 Tablet(s) PO Q6 PRN 10/28/2016 11/28/2016 Inactive nystatin 100,000 unit/mL oral suspension RxNorm: 507565 5 Milliliter(s) PO QID 10/28/2016 11/06/2016 Inactive Levemir FlexTouch 100 unit/mL (3 mL) subcutaneous insulin pen RxNorm: 287205 45 Unit(s) SQ BID 10/28/2016 01/16/2017 Inactive 45 q am and 40 q anita cyclobenzaprine 10 mg tablet RxNorm: 026205 TAKE ONE TABLET BY MOUTH EVERY 8 HOURS NEEDED 10/21/2016 11/09/2016 Inactive Lasix 40 mg tablet RxNorm: 420594 TAKE ONE TABLET BY MOUTH TWICE DAILY 10/18/2016 04/15/2017 Inactive Percocet 10 mg-325 mg tablet RxNorm: 7125096 1-2 Tablet(s) PO Q6 PRN 10/18/2016 10/30/2016 Inactive acyclovir 400 mg tablet RxNorm: 395093 2 Tablet(s) PO QID 10/1310/22/2016 Inactive Lasix 40 mg tablet RxNorm: 405672 TAKE ONE TABLET BY MOUTH TWICE DAILY 10/10/2016 10/17/2016 Inactive ropinirole 1 mg tablet RxNorm: 025329 TAKE ONE TABLET BY MOUTH AT BEDTIME 10/10/2016 04/07/2017 Inactive nystatin 100,000 unit/mL oral suspension RxNorm: 328913 5 Milliliter(s) PO QID x 10 days 09/30/2016 10/09/2016 Inactive nystatin 100,000 unit/mL oral suspension RxNorm: 538532 5 Milliliter(s) PO QID x 10 days 09/30/2016 10/09/2016 Inactive Swish et swallow Flonase Allergy Relief 50 mcg/actuation nasal spray, suspension RxNorm: 6357638 2 Brandon NASAL daily 09/23/20162016 Inactive Percocet 10 mg-325 mg tablet RxNorm: 1304898 1-2 Tablet(s) PO Q6 PRN 09/23/2016 10/17/2016 Inactive doxycycline monohydrate 100 mg tablet RxNorm: 604173 1 Tablet(s) PO BID 09/23/2016 10/02/2016 Inactive give doxycyline hyclate Levemir FlexTouch 100 unit/mL (3 mL) subcutaneous insulin pen RxNorm: 762336 40 Unit(s) SQ BID 09/15/2016 10/27/2016 Inactive nystatin 100,000 unit/gram topical powder RxNorm: 818666 1 Application TOP QID 09/13/2016 09/22/2016 Inactive Voltaren 1 % topical gel RxNorm: 786496 4 Gram(s) TOP QID 09/1303/11/2017 Inactive Anusol-HC 25 mg rectal suppository RxNorm: 3195393 1 Suppository RTL HS 09/13/2016 09/26/2016 Inactive hydrocodone 10 mg-acetaminophen 325 mg tablet RxNorm: 580688 1-2 Tablet(s) PO Q6 as needed 09/13/2016 09/22/2016 Inactive Linzess 145 mcg capsule RxNorm: 9148405 1 Capsule(s) PO daily 09/01/2016 10/26/2017 Inactive Linzess 145 mcg capsule RxNorm: 6563716 1 Capsule(s) PO daily 09/01/2016 08/31/2016 Inactive Zofran 4 mg tablet RxNorm: 497928 TAKE ONE TABLET BY MOUTH EVERY 4 TO 6 HOURS NEEDED 08/29/2016 08/02/2017 Inactive Voltaren 1 % topical gel RxNorm: 830668 4 Gram(s) TOP QID 08/2309/12/2016 Inactive levothyroxine 88 mcg tablet RxNorm: 948876 TAKE ONE TABLET BY MOUTH ONCE DAILY 08/19/2016 12/16/2016 Inactive hydrocodone 10 mg-acetaminophen 325 mg tablet RxNorm: 883275 1 Tablet(s) PO Q6 as needed 08/17/2016 09/12/2016 Inactive nystatin 100,000 unit/gram topical powder RxNorm: 108746 1 Application TOP QID 08/16/2016 08/25/2016 Inactive Cymbalta 60 mg capsule,delayed release RxNorm: 732635 TAKE ONE CAPSULE BY MOUTH ONCE DAILY 08/10/2016 11/29/2016 Inactive Voltaren 1 % topical gel RxNorm: 759107 4 Gram(s) TOP QID 08/1008/22/2016 Inactive Voltaren 1 % topical gel RxNorm: 793595 4 Gram(s) TOP QID 08/1008/09/2016 Inactive promethazine 25 mg tablet RxNorm: 883694 TAKE ONE TABLET BY MOUTH EVERY 8 HOURS NEEDED FOR NAUSEA 07/29/20162017 Inactive nystatin 100,000 unit/gram topical powder RxNorm: 361162 1 Application TOP QID 07/26/2016 08/04/2016 Inactive Levemir FlexTouch U-100 Insulin 100 unit/mL (3 mL) subcutaneous pen RxNorm: 587465 35 Unit(s) SQ BID 07/26/201609/2016 Inactive 35 q am and 30 q pm cyclobenzaprine 10 mg tablet RxNorm: 519965 TAKE ONE TABLET BY MOUTH EVERY 8 HOURS NEEDED 07/14/2016 08/22/2016 Inactive hydrocodone 10 mg-acetaminophen 325 mg tablet RxNorm: 713885 1 Tablet(s) PO Q6 as needed 07/11/2016 08/16/2016 Inactive nystatin 100,000 unit/mL oral suspension RxNorm: 583590 5 Milliliter(s) PO QID x 10 days 07/05/2016 07/04/2016 Inactive nystatin 100,000 unit/mL oral suspension RxNorm: 962954 5 Milliliter(s) PO QID x 10 days 07/05/2016 07/04/2016 Inactive nystatin 100,000 unit/mL oral suspension RxNorm: 956964 5 Milliliter(s) PO QID x 10 days 07/05/2016 07/14/2016 Inactive Swish et swallow doxycycline monohydrate 100 mg tablet RxNorm: 829214 1 Tablet(s) PO BID 06/24/2016 07/03/2016 Inactive give doxycyline hyclate promethazine 25 mg tablet RxNorm: 620322 TAKE ONE TABLET BY MOUTH EVERY 8 HOURS NEEDED FOR NAUSEA 06/01/20162016 Inactive pantoprazole 40 mg tablet,delayed release RxNorm: 492410 1 Tablet(s) PO BID 05/25/2016 08/02/2017 Inactive Zofran 4 mg tablet RxNorm: 442940 1 Tablet(s) PO Q12 PRN TAKE 1 TABLET BY MOUTH EVERY 4 TO 6 HOURS NEEDED 05/24/2016 Inactive hydrocodone 10 mg-acetaminophen 325 mg tablet RxNorm: 177365 1 Tablet(s) PO Q6 as needed 05/24/2016 07/10/2016 Inactive Levemir FlexTouch 100 unit/mL (3 mL) subcutaneous insulin pen RxNorm: 029103 25 Unit(s) SQ BID 05/24/2016 06/22/2016 Inactive Xanax 0.5 mg tablet RxNorm: 714036 Tablet(s) TAKE ONE TABLET BY MOUTH THREE TIMES DAILY 05/11/2016 07/09/2016 Inactive BD Insulin Pen Needle UF Short 31 gauge x 5/16" RxNorm: Misc 05/06/2016 05/05/2016 Inactive BD Insulin Pen Needle UF Short 31 gauge x 5/16" RxNorm: Misc 05/06/2016 06/04/2016 Inactive colestipol 1 gram tablet RxNorm: 7918856 Tablet(s) TAKE 1 TABLET BY MOUTH TWICE DAILY 04/22/2016 04/16/2017 Inactive Levemir FlexTouch 100 unit/mL (3 mL) subcutaneous insulin pen RxNorm: 115761 20 Unit(s) SQ BID 04/19/2016 05/18/2016 Inactive 25 UNITS Q AM AND 20 UNITS Q HS Cartia XT 180 mg capsule,extended release RxNorm: 382892 Capsule(s) BID 04/11/2016 04/05/2017 Inactive hydrocodone 10 mg-acetaminophen 325 mg tablet RxNorm: 006684 1 Tablet(s) PO Q6 as needed 04/11/2016 05/23/2016 Inactive Levemir FlexTouch 100 unit/mL (3 mL) subcutaneous insulin pen RxNorm: 362309 20 Unit(s) SQ BID 04/11/2016 04/18/2016 Inactive 20 UNITS Q AM AND 15 UNITS Q HS X 1 WEEK THEN 20 UNITS BID levothyroxine 88 mcg tablet RxNorm: 112929 1 Tablet(s) PO daily 03/21/2016 07/18/2016 Inactive Cymbalta 60 mg capsule,delayed release RxNorm: 096488 1 Capsule(s) PO daily 03/21/2016 07/18/2016 Inactive diltiazem ER (XR/XT) 240 mg capsule,extended release, controlled RxNorm: 278817 1 Capsule(s) PO BID 03/18/20162017 Inactive doxycycline hyclate 100 mg tablet RxNorm: 649231 1 Tablet(s) PO BID 03/11/2016 03/17/2016 Inactive Levemir FlexTouch 100 unit/mL (3 mL) subcutaneous insulin pen RxNorm: 135365 10 Unit(s) SQ BID 03/11/2016 04/09/2016 Inactive Lasix 40 mg tablet RxNorm: 014444 1 Tablet(s) PO BID 201509/06/2016 Inactive gabapentin 600 mg tablet RxNorm: 655776 Tablet(s) 1.5 TABLET(S) PO TID 03/04/2016 08/30/2016 Inactive Toujeo SoloStar 300 unit/mL (1.5 mL) subcutaneous insulin pen RxNorm: 8178161 10 Unit(s) SQ QHS 02/26/2016 03/26/2016 Inactive polymyxin B sulfate 10,000 unit-trimethoprim 1 mg/mL eye drops RxNorm: 331177 2 Drop(s) OPH TID 02/26/2016 03/03/2016 Inactive Lasix 20 mg tablet RxNorm: 282660 2 Tablet(s) PO BID TAKE 2 TABLETS BY MOUTH EVERY MORNING AND 2 TABLET BY MOUTH AT 3 PM 02/26/2016 03/10/2016 Inactive cyclobenzaprine 10 mg tablet RxNorm: 561837 Tablet(s) TABLET(S) TABLET(S) 1 TABLET (S) PO NEEDED TAKE 1 TABLET BY MOUTH EVERY 8 HOURS NEEDED 02/26/2016 07/13/2016 Inactive early fill- pt lost med Levemir FlexTouch 100 unit/mL (3 mL) subcutaneous insulin pen RxNorm: 469113 16 Unit(s) SQ QHS 02/18/2016 02/17/2016 Inactive Levemir FlexTouch 100 unit/mL (3 mL) subcutaneous insulin pen RxNorm: 221243 16 Unit(s) SQ QHS 02/18/2016 02/25/2016 Inactive Levemir 100 unit/mL subcutaneous solution RxNorm: 551398 16 Unit(s) SQ QHS 02/15/2016 02/17/2016 Inactive disp needles as well Effexor XR 37.5 mg capsule,extended release RxNorm: 774158 1 Capsule(s) QPM CAPSULE(S) PO TAKE 2 CAPSULES BY MOUTH EVERY MORNING AND 1 CAPSULE BY MOUTH EVERY NIGHT AT BEDTIME 02/15/20162015 Inactive clotrimazole 100 mg vaginal tablet RxNorm: 159853 1 Tablet(s) VAG QHS 02/05/2016 02/11/2016 Inactive clotrimazole 100 mg vaginal tablet RxNorm: 596332 1 Tablet(s) VAG QHS 02/05/2016 02/04/2016 Inactive hydrocodone 10 mg-acetaminophen 325 mg tablet RxNorm: 421307 1 Tablet(s) PO Q6 as needed 02/05/2016 04/10/2016 Inactive flecainide 100 mg tablet RxNorm: 101063 1 Tablet(s) PO BID No Stop Date Active potassium chloride ER 10 mEq tablet,extended release RxNorm: 640496 1 Tablet(s) PO daily 1 TABLET(S) PO QDAY PRN TAKE WITH LASIX 02/02/2016 01/26/2017 Inactive Brovana 15 mcg/2 mL solution for nebulization RxNorm: 518561 2 Milliliter(s) INH BID PRN 02/02/2016 03/20/2016 Inactive promethazine 25 mg tablet RxNorm: 466425 1 Tablet(s) PO Q8 as needed nausea 01/27/2016 03/20/2016 Inactive promethazine 25 mg tablet RxNorm: 668291 1 Tablet(s) PO Q6 PRN 01/27/2016 02/03/2016 Inactive nystatin 100,000 unit/mL oral suspension RxNorm: 204340 5 Unit(s) PO QID 01/12/2016 05/06/2018 Inactive promethazine 25 mg tablet RxNorm: 882622 1 Tablet(s) PO Q6 PRN 12/30/2015 01/06/2016 Inactive hydrocodone 7.5 mg-acetaminophen 325 mg tablet RxNorm: 009763 1 Tablet(s) PO q 6 hours prn for pain 12/10/2015 01/06/2016 Inactive Xanax 0.5 mg tablet RxNorm: 899266 TAKE ONE TABLET BY MOUTH THREE TIMES DAILY 12/02/2015 12/31/2015 Inactive Xanax 0.5 mg tablet RxNorm: 573441 Tablet(s) TAKE 1 TABLET BY MOUTH THREE TIMES DAILY 12/02/2015 11/30/2015 Inactive Anusol-HC 25 mg rectal suppository RxNorm: 8745042 1 Suppository RTL HS 11/27/2015 09/12/2016 Inactive ropinirole 1 mg tablet RxNorm: 792610 1 Tablet(s) PO QHS 201505/24/2016 Inactive nystatin 100,000 unit/mL oral suspension RxNorm: 056238 5 Unit(s) PO QID 11/20/2015 11/29/2015 Inactive albuterol sulfate concentrate 2.5 mg/0.5 mL solution for nebulization RxNorm: 973178 3 Milliliter(s) INH Q4-6H as needed 11/10/2015 11/02/2016 Inactive doxycycline monohydrate 100 mg tablet RxNorm: 125338 1 Tablet(s) PO BID 11/10/2015 11/19/2015 Inactive give doxycyline hyclate promethazine 25 mg tablet RxNorm: 181162 1 Tablet(s) PO Q6 PRN 11/05/2015 11/12/2015 Inactive Bactroban 2 % topical ointment RxNorm: 640759 1 APPLICATION TOP BID 10/27/2015 10/26/2017 Inactive Belviq 10 mg tablet RxNorm: 2934541 1 Tablet(s) PO BID 201511/25/2015 Inactive hydrocodone 7.5 mg-acetaminophen 325 mg tablet RxNorm: 784378 1 Tablet(s) PO q 6 hours prn for pain 10/20/2015 11/18/2015 Inactive Toprol XL 100 mg tablet,extended release RxNorm: 880464 Tablet(s) TAKE 1 TABLET BY MOUTH TWICE DAILY 10/16/20152016 Inactive Diflucan 150 mg tablet RxNorm: 895445 1 Tablet(s) PO every other day 10/14/2015 10/23/2015 Inactive Xanax 0.5 mg tablet RxNorm: 243720 Tablet(s) TAKE 1 TABLET BY MOUTH THREE TIMES DAILY 10/14/2015 05/10/2016 Inactive Toprol XL 100 mg tablet,extended release RxNorm: 218829 Tablet(s) TAKE 1 TABLET BY MOUTH TWICE DAILY 10/13/20152015 Inactive cyclobenzaprine 10 mg tablet RxNorm: 618486 Tablet(s) TABLET(S) TABLET(S) 1 TABLET (S) PO NEEDED TAKE 1 TABLET BY MOUTH EVERY 8 HOURS NEEDED 10/02/2015 10/14/2015 Inactive Zofran 4 mg tablet RxNorm: 723441 Tablet(s) 1 TABLET(S) PRN TAKE 1 TABLET BY MOUTH EVERY 4 TO 6 HOURS NEEDED 09/29/2015 12/27/2015 Inactive Synthroid 88 mcg tablet RxNorm: 792584 1 Tablet(s) PO daily 1 TABLET(S) PO DAILY 09/29/2015 10/28/2015 Inactive Patient requests 90 days supply promethazine 25 mg tablet RxNorm: 803018 1 Tablet(s) PO Q6 PRN 09/29/2015 11/04/2015 Inactive Lasix 20 mg tablet RxNorm: 745911 2 Tablet(s) PO BID 201501/18/2016 Inactive promethazine 25 mg tablet RxNorm: 284435 1 Tablet(s) PO Q6 PRN 09/22/2015 09/28/2015 Inactive hydrocodone 7.5 mg-acetaminophen 325 mg tablet RxNorm: 209800 1 Tablet(s) PO q 6 hours prn for pain 09/17/2015 10/16/2015 Inactive WelChol 625 mg tablet RxNorm: 747590 3 Tablet(s) PO BID 201503/26/2017 Inactive promethazine 25 mg tablet RxNorm: 431565 1 Tablet(s) PO Q8 as needed 09/07/2015 10/26/2017 Inactive Levemir 100 unit/mL subcutaneous solution RxNorm: 398857 16 Unit(s) SQ QHS 09/01/2015 02/14/2016 Inactive pantoprazole 40 mg tablet,delayed release RxNorm: 388133 1 Tablet(s) PO daily 09/01/2015 05/24/2016 Inactive Effexor XR 37.5 mg capsule,extended release RxNorm: 260348 Capsule(s) CAPSULE(S) PO TAKE 2 CAPSULES BY MOUTH EVERY MORNING AND 1 CAPSULE BY MOUTH EVERY NIGHT AT BEDTIME 08/27/2015 02/14/2016 Inactive promethazine 25 mg tablet RxNorm: 102804 1 Tablet(s) PO Q8 as needed 08/13/2015 09/06/2015 Inactive gabapentin 600 mg tablet RxNorm: 751247 Tablet(s) 1.5 TABLET(S) PO TID 08/13/2015 02/08/2016 Inactive hydrocodone 7.5 mg-acetaminophen 325 mg tablet RxNorm: 266709 1 Tablet(s) PO q 6 hours prn for pain 08/10/2015 09/08/2015 Inactive Zofran 4 mg tablet RxNorm: 584657 Tablet(s) 1 TABLET(S) PRN TAKE 1 TABLET BY MOUTH EVERY 4 TO 6 HOURS NEEDED 08/04/2015 08/03/2015 Inactive Zofran 4 mg tablet RxNorm: 848093 Tablet(s) 1 TABLET(S) PRN TAKE 1 TABLET BY MOUTH EVERY 4 TO 6 HOURS NEEDED 08/04/2015 09/28/2015 Inactive doxycycline monohydrate 100 mg tablet RxNorm: 259920 1 Tablet(s) PO BID 08/04/2015 08/10/2015 Inactive give doxycyline hyclate Diflucan 150 mg tablet RxNorm: 953997 1 Tablet(s) PO every other day 07/31/2015 08/09/2015 Inactive nystatin 100,000 unit/mL oral suspension RxNorm: 135011 5 Milliliter(s) PO QID 07/31/2015 07/30/2015 Inactive Diflucan 150 mg tablet RxNorm: 249854 1 Tablet(s) PO every other day 07/31/2015 07/30/2015 Inactive nystatin 100,000 unit/mL oral suspension RxNorm: 416023 5 Milliliter(s) PO QID 07/31/2015 08/09/2015 Inactive Ceftin 500 mg tablet RxNorm: 358609 1 Tablet(s) PO BID 201507/23/2015 Inactive Ceftin 500 mg tablet RxNorm: 813961 1 Tablet(s) PO BID Pre-medicate with benadryl 50 mg, pepcid 20 mg, and nathanael before each dose 07/24/2015 07/30/2015 Inactive cyclobenzaprine 10 mg tablet RxNorm: 607104 TABLET(S) TABLET(S) 1 TABLET(S) PO NEEDED TAKE 1 TABLET BY MOUTH EVERY 8 HOURS NEEDED 201502/25/2016 Inactive early fill- pt lost med Synthroid 88 mcg tablet RxNorm: 034355 1 TABLET(S) PO DAILY 07/201509/28/2015 Inactive Patient requests 90 days supply cyclobenzaprine 10 mg tablet RxNorm: 454617 Tablet(s) TABLET(S) TABLET(S) 1 TABLET (S) PO NEEDED TAKE 1 TABLET BY MOUTH EVERY 8 HOURS NEEDED 07/23/2015 10/01/2015 Inactive early fill- pt lost med Promethazine VC 6.25 mg-5 mg/5 mL syrup RxNorm: 9814692 1-2 Teaspoon(s) PO Q6 PRN as needed 07/22/2015 03/20/2016 Inactive Diflucan 150 mg tablet RxNorm: 801536 1 Tablet(s) PO daily 06/201507/22/2015 Inactive Lasix 20 mg tablet RxNorm: 754450 Tablet(s) TAKE 2 TABLETS BY MOUTH EVERY MORNING AND 2 TABLET BY MOUTH AT 3PM 07/16/2015 09/21/2015 Inactive Toprol XL 100 mg tablet,extended release RxNorm: 553881 Tablet(s) TAKE 1 TABLET BY MOUTH TWICE DAILY 07/16/20152015 Inactive Cartia XT 180 mg capsule,extended release RxNorm: 733372 Capsule(s) 1 CAPSULE(S) PO DAILY TAKE 1 CAPSULE BY MOUTH AT BEDTIME ..TAKE THIS IN ADDITION TO 240 MG IN THE MORNING 07/14/2015 04/10/2016 Inactive diltiazem ER (XR/XT) 240 mg capsule,extended release, controlled RxNorm: 726519 Capsule(s) TAKE 1 CAPSULE BY MOUTH DAILY 07/14/2015 03/17/2016 Inactive gabapentin 600 mg tablet RxNorm: 567787 Tablet(s) 1.5 TABLET(S) PO TID 07/06/2015 08/12/2015 Inactive Phenergan 25 mg tablet RxNorm: 619659 1 Tablet(s) PO Q8 as needed nausea 06/29/2015 01/25/2016 Inactive doxycycline monohydrate 100 mg tablet RxNorm: 675022 1 Tablet(s) PO BID 06/29/2015 06/28/2015 Inactive doxycycline monohydrate 100 mg tablet RxNorm: 197576 1 Tablet(s) PO BID 06/29/2015 07/08/2015 Inactive give doxycyline hyclate doxycycline monohydrate 100 mg tablet RxNorm: 252866 1 Tablet(s) PO BID 06/29/2015 06/28/2015 Inactive Lasix 20 mg tablet RxNorm: 679085 Tablet(s) TAKE 2 TABLETS BY MOUTH EVERY MORNING AND 2 TABLET BY MOUTH AT 3PM 06/29/2015 07/15/2015 Inactive Lasix 20 mg tablet RxNorm: Tablet(s) TAKE 2 TABLETS BY MOUTH EVERY MORNING AND 1 TABLET BY MOUTH AT 3PM 06/26/2015 06/28/2015 Inactive Xanax 0.5 mg tablet RxNorm: 107621 Tablet(s) TAKE 1 TABLET BY MOUTH THREE TIMES DAILY 06/26/2015 07/25/2015 Inactive Kenalog 40 mg/mL suspension for injection RxNorm: 5783349 Milliliter(s) Inj 06/26/2015 06/26/2015 Inactive hydrocodone 7.5 mg-acetaminophen 325 mg tablet RxNorm: 067391 1 Tablet(s) PO q 6 hours prn for pain 06/26/2015 07/25/2015 Inactive Dexilant 60 mg capsule, delayed release RxNorm: 118728 1 Capsule(s) PO daily 06/26/2015 08/24/2015 Inactive colestipol 1 gram tablet RxNorm: 9219664 1 TABLET(S) PO BID TAKE 1 TABLET BY MOUTH TWICE DAILY 06/16/2015 03/11/2016 Inactive hydrocodone 7.5 mg-acetaminophen 325 mg tablet RxNorm: 164074 1 Tablet(s) PO q 6 hours prn for pain 06/11/2015 06/25/2015 Inactive cyclobenzaprine 10 mg tablet RxNorm: 449921 TABLET(S) TABLET(S) 1 TABLET(S) PO NEEDED TAKE 1 TABLET BY MOUTH EVERY 8 HOURS NEEDED 201507/22/2015 Inactive early fill- pt lost med Zofran 4 mg tablet RxNorm: 771038 1 TABLET(S) PRN TAKE 1 TABLET BY MOUTH EVERY 4 TO 6 HOURS NEEDED 05/25/20152015 Inactive Zofran 4 mg tablet RxNorm: 547430 1 Tablet(s) PRN TAKE 1 TABLET BY MOUTH EVERY 4 TO 6 HOURS NEEDED 05/19/20152015 Inactive gabapentin 600 mg tablet RxNorm: 639326 1.5 TABLET(S) PO TID 07/05/2015 Inactive Lasix 20 mg tablet RxNorm: 053601 TAKE 2 TABLETS BY MOUTH EVERY MORNING AND 1 TABLET BY MOUTH AT 3PM 05/07/20152015 Inactive Effexor XR 37.5 mg capsule,extended release RxNorm: 161908 Capsule(s) CAPSULE(S) PO TAKE 2 CAPSULES BY MOUTH EVERY MORNING AND 1 CAPSULE BY MOUTH EVERY NIGHT AT BEDTIME 04/15/2015 08/26/2015 Inactive Diflucan 150 mg tablet RxNorm: 322300 1 Tablet(s) PO daily 04/18/2015 Inactive Victoza 3-Babak 0.6 mg/0.1 mL (18 mg/3 mL) subcutaneous pen injector RxNorm: 313024 1.8 Milligram(s) SQ daily 04/14/201508/10 Inactive Levaquin 500 mg tablet RxNorm: 123814 1 Tablet(s) PO daily 04/20/2015 Inactive potassium chloride ER 10 mEq tablet,extended release RxNorm: 257707 1 TABLET(S) PO QDAY PRN TAKE WITH LASIX 04/13/201504/2016 Inactive Effexor XR 37.5 mg capsule,extended release RxNorm: 691246 CAPSULE(S) PO TAKE 2 CAPSULES BY MOUTH EVERY MORNING AND 1 CAPSULE BY MOUTH EVERY NIGHT AT BEDTIME 04/10/2015 04/14/2015 Inactive pantoprazole 40 mg tablet,delayed release RxNorm: 662535 1 Tablet(s) PO daily 03/31/2015 08/31/2015 Inactive Dexilant 60 mg capsule, delayed release RxNorm: 795441 1 Capsule(s) PO daily 03/31/2015 03/31/2015 Inactive pantoprazole 40 mg tablet,delayed release RxNorm: 739596 1 Tablet(s) PO daily 03/31/2015 03/30/2015 Inactive Dexilant 60 mg capsule, delayed release RxNorm: 280252 1 Capsule(s) PO daily 03/31/2015 05/29/2015 Inactive Dexilant 60 mg capsule, delayed release RxNorm: 501802 1 Capsule(s) PO daily 03/30/2015 03/30/2015 Inactive hydrocodone 7.5 mg-acetaminophen 325 mg tablet RxNorm: 863834 1 Tablet(s) PO q 6 hours prn for pain 03/30/2015 04/28/2015 Inactive cyclobenzaprine 10 mg tablet RxNorm: 983514 TABLET(S) TABLET(S) 1 TABLET(S) PO NEEDED TAKE 1 TABLET BY MOUTH EVERY 8 HOURS NEEDED 201405/31/2015 Inactive early fill- pt lost med Xanax 0.5 mg tablet RxNorm: 169863 Tablet(s) TAKE 1 TABLET BY MOUTH THREE TIMES DAILY 03/25/2015 04/23/2015 Inactive Lasix 20 mg tablet RxNorm: 580393 TAKE 2 TABLETS BY MOUTH EVERY MORNING AND 1 TABLET BY MOUTH AT 3PM 03/23/20152014 Inactive Levemir Flexpen 100 unit/mL (3 mL) solution subcutaneous insulin pen RxNorm: 469475 15 Unit(s) SQ BID 03/20/20152015 Inactive give quanity sufficient for 1 month- Dexilant 60 mg capsule, delayed release RxNorm: 251801 1 Capsule(s) PO daily 03/19/2015 03/29/2015 Inactive Dexilant 60 mg capsule, delayed release RxNorm: 216780 1 Capsule(s) PO daily 03/19/2015 03/18/2015 Inactive Diflucan 150 mg tablet RxNorm: 516279 1 Tablet(s) PO every other day x7 doses 03/19/2015 03/21/2015 Inactive hydrocodone 7.5 mg-acetaminophen 325 mg tablet RxNorm: 010425 1 Tablet(s) PO q 6 hours prn for pain 02/27/2015 03/28/2015 Inactive Lasix 20 mg tablet RxNorm: 637564 TAKE 2 TABLETS BY MOUTH EVERY MORNING AND 1 TABLET BY MOUTH AT 3PM 02/27/20152014 Inactive omeprazole 20 mg capsule,delayed release RxNorm: 899412 1 CAPSULE(S) PO DAILY TAKE 1 CAPSULE BY MOUTH TWICE DAILY 02/26/2015 10/26/2017 Inactive Zofran 4 mg tablet RxNorm: 841404 1 Tablet(s) PRN TAKE 1 TABLET BY MOUTH EVERY 4 TO 6 HOURS NEEDED 02/24/20152014 Inactive fluconazole 150 mg tablet RxNorm: 715037 1 Tablet(s) PO every other day x 5 doses 02/19/2015 02/28/2015 Inactive cyclobenzaprine 10 mg tablet RxNorm: 539712 TABLET(S) TABLET(S) 1 TABLET(S) PO NEEDED TAKE 1 TABLET BY MOUTH EVERY 8 HOURS NEEDED 201403/29/2015 Inactive early fill- pt lost med hydrocodone 7.5 mg-acetaminophen 325 mg tablet RxNorm: 966008 1 Tablet(s) PO q 6 hours prn for pain 01/29/2015 02/26/2015 Inactive Xanax 0.5 mg tablet RxNorm: 235421 Tablet(s) TAKE 1 TABLET BY MOUTH THREE TIMES DAILY 01/29/2015 02/27/2015 Inactive Bactroban 2 % topical ointment RxNorm: 822196 1 APPLICATION TOP BID 01/26/2015 10/26/2015 Inactive Bactroban 2 % topical ointment RxNorm: 130310 1 Application TOP BID 01/15/2015 01/25/2015 Inactive doxycycline hyclate 100 mg tablet RxNorm: 394742 1 Tablet(s) PO BID 01/15/2015 01/21/2015 Inactive nystatin 100,000 unit/mL oral suspension RxNorm: 574341 5 Milliliter(s) PO QID 01/15/2015 01/24/2015 Inactive Cartia XT 180 mg capsule,extended release RxNorm: 549440 1 CAPSULE(S) PO DAILY TAKE 1 CAPSULE BY MOUTH AT BEDTIME ..TAKE THIS IN ADDITION TO 240 MG IN THE MORNING 01/13/2015 07/13/2015 Inactive Lasix 20 mg tablet RxNorm: TAKE 2 TABLETS BY MOUTH EVERY MORNING AND 1 TABLET BY MOUTH AT 3PM 01/08/20152014 Inactive fluconazole 150 mg tablet RxNorm: 020363 1 Tablet(s) PO daily 01/01/2015 01/05/2015 Inactive hydrocodone 7.5 mg-acetaminophen 325 mg tablet RxNorm: 516534 1 Tablet(s) PO q 6 hours prn for pain 01/01/2015 01/28/2015 Inactive colestipol 1 gram tablet RxNorm: 9386097 1 TABLET(S) PO BID TAKE 1 TABLET BY MOUTH TWICE DAILY 12/18/2014 06/15/2015 Inactive colestipol 1 gram tablet RxNorm: 8377641 1 TABLET(S) PO BID TAKE 1 TABLET BY MOUTH TWICE DAILY 12/18/2014 09/13/2015 Inactive Lasix 20 mg tablet RxNorm: TAKE 2 TABLETS BY MOUTH EVERY MORNING AND 2 TABLETS AND AT 3PM 12/11/2014 12/25/2014 Inactive cyclobenzaprine 10 mg tablet RxNorm: 282243 TABLET(S) 1 TABLET(S) PO NEEDED TAKE 1 TABLET BY MOUTH EVERY 8 HOURS NEEDED 12/11/2014 05/31/2017 Inactive Lasix 20 mg tablet RxNorm: 075336 Tablet(s) TABLET(S) PO TAKE 2 TABLETS BY MOUTH EVERY MORNING AND 1 TABLET BY MOUTH AT 3 PM 12/10/2014 12/10/2014 Inactive fill early- pt lost them cyclobenzaprine 10 mg tablet RxNorm: 372493 Tablet(s) TABLET(S) 1 TABLET(S) PO NEEDED TAKE 1 TABLET BY MOUTH EVERY 8 HOURS NEEDED 201402/15/2015 Inactive early fill- pt lost med cyclobenzaprine 10 mg tablet RxNorm: 721795 TABLET(S) 1 TABLET(S) PO NEEDED TAKE 1 TABLET BY MOUTH EVERY 8 HOURS NEEDED 12/02/2014 12/09/2014 Inactive hydrocodone 7.5 mg-acetaminophen 325 mg tablet RxNorm: 738721 1 Tablet(s) PO q 6 hours prn for pain 12/01/2014 12/30/2014 Inactive diltiazem ER (XR/XT) 240 mg capsule,extended release, controlled RxNorm: 591420 TAKE 1 CAPSULE BY MOUTH DAILY 11/30/2014 07/13/2015 Inactive Xanax 0.5 mg tablet RxNorm: 934083 1 Tablet(s) PO TID PRN as needed 11/19/2014 11/19/2014 Inactive (Appended: Controlled substance eRx refill - RxReferenceNumber: [id number]|1|0|1) Xanax 0.5 mg tablet RxNorm: 313447 TAKE 1 TABLET BY MOUTH THREE TIMES DAILY 11/19/2014 12/18/2014 Inactive Toprol XL 100 mg tablet,extended release RxNorm: 683901 TAKE 1 TABLET BY MOUTH TWICE DAILY 11/06/2014 07/15/2015 Inactive Diflucan 150 mg tablet RxNorm: 205226 1 Tablet(s) PO every other day x7 doses 11/05/2014 11/07/2014 Inactive omeprazole 20 mg capsule,delayed release RxNorm: 043101 1 Capsule(s) PO daily TAKE 1 CAPSULE BY MOUTH TWICE DAILY 11/04/2014 02/01/2015 Inactive cyclobenzaprine 10 mg tablet RxNorm: 922524 TABLET(S) 1 TABLET(S) PO NEEDED TAKE 1 TABLET BY MOUTH EVERY 8 HOURS NEEDED 10/28/2014 12/01/2014 Inactive hydrocodone 7.5 mg-acetaminophen 325 mg tablet RxNorm: 939401 1 Tablet(s) PO q 6 hours prn for pain 10/21/2014 11/19/2014 Inactive gabapentin 600 mg tablet RxNorm: 951895 1.5 Tablet(s) PO TID 04/30/2015 Inactive Xanax 0.5 mg tablet RxNorm: 001015 Tablet(s) TAKE 1 TABLET BY MOUTH THREE TIMES DAILY 10/01/2014 10/30/2014 Inactive (Response to an electronic controlled substance refill request - RxReferenceNumber: [id number]|1|0|1) Xanax 0.25 mg tablet RxNorm: 365318 1 Tablet(s) PO Q8 PRN as needed 09/30/2014 09/30/2014 Inactive Lasix 20 mg tablet RxNorm: 494996 Tablet(s) TAKE 2 TABLETS BY MOUTH EVERY MORNING AND 2 TABLETS BY MOUTH AT 3 PM 09/30/2014 11/12/2014 Inactive Victoza 3-Babak 0.6 mg/0.1 mL (18 mg/3 mL) subcutaneous pen injector RxNorm: 750748 1.2 MILLIGRAM(S) SQ DAILY 0.6 X 2 WEEKS THEN INCREASE TO 1.2MG DAILY 09/26/2014 04/13/2015 Inactive Xanax 0.5 mg tablet RxNorm: 608625 TAKE 1 TABLET BY MOUTH THREE TIMES DAILY 09/25/2014 09/30/2014 Inactive (Response to an electronic controlled substance refill request - RxReferenceNumber: [id number]|1|0|1) Zofran 4 mg tablet RxNorm: 056320 TAKE 1 TABLET BY MOUTH EVERY 4 TO 6 HOURS NEEDED 09/25/2014 09/27/2014 Inactive hydrocodone 7.5 mg-acetaminophen 325 mg tablet RxNorm: 904441 1 Tablet(s) PO q 6 hours prn for pain 09/19/2014 10/18/2014 Inactive cyclobenzaprine 10 mg tablet RxNorm: 145574 TABLET(S) 1 TABLET(S) PO NEEDED TAKE 1 TABLET BY MOUTH EVERY 8 HOURS NEEDED 09/15/2014 10/27/2014 Inactive Lasix 20 mg tablet RxNorm: 531154 Tablet(s) TAKE 2 TABLETS BY MOUTH EVERY MORNING AND 2 TABLETS BY MOUTH AT 3 PM 09/08/2014 09/29/2014 Inactive Lasix 20 mg tablet RxNorm: 639505 TAKE 2 TABLETS BY MOUTH EVERY MORNING AND 2 TABLETS BY MOUTH AT 3 PM 08/21/20142014 Inactive hydrocodone 7.5 mg-acetaminophen 325 mg tablet RxNorm: 274483 1 Tablet(s) PO q 6 hours prn for pain 08/21/2014 09/18/2014 Inactive Diflucan 150 mg tablet RxNorm: 297612 1 Tablet(s) PO every other day 08/15/2014 08/17/2014 Inactive cyclobenzaprine 10 mg tablet RxNorm: 720386 Tablet(s) 1 TABLET(S) PO NEEDED TAKE 1 TABLET BY MOUTH EVERY 8 HOURS NEEDED 08/12/2014 09/14/2014 Inactive Zofran 4 mg tablet RxNorm: 901478 TAKE 1 TABLET BY MOUTH EVERY 4 TO 6 HOURS NEEDED 07/31/2014 08/02/2014 Inactive Effexor XR 37.5 mg capsule,extended release RxNorm: 300982 CAPSULE(S) PO TAKE 2 CAPSULES BY MOUTH EVERY MORNING AND 1 CAPSULE BY MOUTH EVERY NIGHT AT BEDTIME 07/28/2014 02/15/2016 Inactive Lasix 20 mg tablet RxNorm: TAKE 2 TABLETS BY MOUTH EVERY MORNING AND 2 TABLETS BY MOUTH AT 3 PM 07/22/20142014 Inactive Diflucan 150 mg tablet RxNorm: 774698 1 Tablet(s) PO daily 06/201407/23/2014 Inactive hydrocodone 7.5 mg-acetaminophen 325 mg tablet RxNorm: 579587 1 Tablet(s) PO q 6 hours prn for pain 07/14/2014 08/12/2014 Inactive Synthroid 88 mcg tablet RxNorm: 266608 1 TABLET(S) PO DAILY 10/11/2014 Inactive Effexor XR 37.5 mg capsule,extended release RxNorm: 069955 Capsule(s) PO TAKE 2 CAPSULES BY MOUTH EVERY MORNING AND 1 CAPSULE BY MOUTH EVERY NIGHT AT BEDTIME 07/07/2014 04/09/2015 Inactive Effexor XR 37.5 mg capsule,extended release RxNorm: 752679 TAKE 2 CAPSULES BY MOUTH EVERY MORNING AND 1 CAPSULE BY MOUTH EVERY NIGHT AT BEDTIME 07/07/2014 01/02/2015 Inactive WelChol 625 mg tablet RxNorm: 286872 3 TABLET(S) PO BID 201410/04/2014 Inactive WelChol 625 mg tablet RxNorm: 923318 3 Tablet(s) PO BID 201402/01/2015 Inactive Zofran 4 mg tablet RxNorm: 990523 TAKE 1 TABLET BY MOUTH EVERY 4 TO 6 HOURS NEEDED 07/03/2014 07/05/2014 Inactive Lasix 20 mg tablet RxNorm: TAKE 2 TABLETS BY MOUTH EVERY MORNING AND 2 TABLETS BY MOUTH AT 3 PM 06/26/20142014 Inactive Diflucan 150 mg tablet RxNorm: 504672 1 Tablet(s) PO daily 06/19/2014 Inactive Promethazine VC 6.25 mg-5 mg/5 mL syrup RxNorm: 8593093 1-2 Teaspoon(s) PO Q6 PRN as needed 06/12/2014 07/21/2015 Inactive hydrocodone 7.5 mg-acetaminophen 325 mg tablet RxNorm: 984569 1 Tablet(s) PO q 6 hours prn for pain 06/03/2014 07/02/2014 Inactive Levaquin 500 mg tablet RxNorm: 306292 1 Tablet(s) PO daily 01/201506/05/2014 Inactive cyclobenzaprine 10 mg tablet RxNorm: 742347 Tablet(s) 1 TABLET(S) PO NEEDED TAKE 1 TABLET BY MOUTH EVERY 8 HOURS NEEDED 05/26/2014 No Stop Date Active cyclobenzaprine 10 mg tablet RxNorm: 057383 1 TABLET(S) PO NEEDED TAKE 1 TABLET BY MOUTH EVERY 8 HOURS NEEDED 05/26/2014 08/11/2014 Inactive Lasix 20 mg tablet RxNorm: 534079 Tablet(s) TABLET(S) PO TAKE 2 TABLETS BY MOUTH EVERY MORNING AND 2 TABLET BY MOUTH AT 3 PM 05/12/2014 06/25/2014 Inactive Combivent Respimat 20 mcg-100 mcg/actuation solution for inhalation RxNorm: 9872012 INHALE 1 PUFF BY MOUTH FOUR TIMES DAILY 05/12/2014 11/07/2014 Inactive fluconazole 150 mg tablet RxNorm: 606540 1 Tablet(s) PO UD 05/12/2014 Inactive 1 tab every other day x 5 doses Activella 0.5 mg-0.1 mg tablet RxNorm: 7827926 1 TABLET(S) PO DAILY TAKE 1 TABLET BY MOUTH DAILY FOR MENOPAUSAL SYMPTOM 05/02/2014 09/21/2015 Inactive hydrocodone 7.5 mg-acetaminophen 300 mg tablet RxNorm: 605283 Tablet(s) PO TAKE 1 TABLET BY MOUTH EVERY 6 HOURS NEEDED FOR PAIN 04/21/2014 06/03/2014 Inactive ( Appended: Controlled substance eRx refill - RxReferenceNumber: [id number]|1|0|1 ) Levaquin 500 mg tablet RxNorm: 712551 1 Tablet(s) PO daily 04/21/2014 Inactive Diflucan 150 mg tablet RxNorm: 439331 1 Tablet(s) PO every other day x 4 doses 04/10/2014 06/16/2014 Inactive Lasix 20 mg tablet RxNorm: 030951 TAKE 2 TABLETS BY MOUTH EVERY MORNING AND 1 TABLET BY MOUTH AT 3 PM 04/10/20142013 Inactive potassium chloride ER 10 mEq tablet,extended release RxNorm: 524984 1 TABLET(S) PO QDAY PRN TAKE WITH LASIX 04/09/2014 Inactive Levaquin 250 mg tablet RxNorm: 722629 1 Tablet(s) PO daily 08/201304/07/2014 Inactive 2 tabs today then 1 tab daily until gone atorvastatin 40 mg tablet RxNorm: 944305 1 Tablet(s) daily 1 TABLET(S) PO DAILY 03/25/2014 04/10/2016 Inactive TAKE 1 TABLET BY MOUTH DAILY (THIS IS AN INCREASE IN DOSAGE) Zofran 4 mg tablet RxNorm: 259622 1 Tablet(s) PO Q4-6H 201307/02/2014 Inactive Xanax 0.5 mg tablet RxNorm: 469094 TAKE 1 TABLET BY MOUTH THREE TIMES DAILY NEEDED 03/19/2014 04/17/2014 Inactive (Response to an electronic controlled substance refill request - RxReferenceNumber: [id number]|1|0|1) hydrocodone 7.5 mg-acetaminophen 300 mg tablet RxNorm: 416040 Tablet(s) PO TAKE 1 TABLET BY MOUTH EVERY 6 HOURS NEEDED FOR PAIN 03/19/2014 04/20/2014 Inactive ( Appended: Controlled substance eRx refill - RxReferenceNumber: [id number]|1|0|1 ) atorvastatin 40 mg tablet RxNorm: 382282 1 TABLET(S) PO DAILY 03/10/2014 03/24/2014 Inactive TAKE 1 TABLET BY MOUTH DAILY (THIS IS AN INCREASE IN DOSAGE) WelChol 625 mg tablet RxNorm: 609877 3 Tablet(s) PO BID 201303/06/2014 Inactive WelChol 625 mg tablet RxNorm: 415375 3 Tablet(s) PO BID 201307/04/2014 Inactive Lasix 20 mg tablet RxNorm: 905317 Tablet(s) TABLET(S) PO TAKE 2 TABLETS BY MOUTH EVERY MORNING AND 2 TABLET BY MOUTH AT 3 PM 03/03/2014 05/11/2014 Inactive Lasix 20 mg tablet RxNorm: 495882 TABLET(S) PO TAKE 2 TABLETS BY MOUTH EVERY MORNING AND 1 TABLET BY MOUTH AT 3 PM 02/20/2014 03/02/2014 Inactive gabapentin 600 mg tablet RxNorm: 548665 1.5 Tablet(s) PO TID 09/16/2014 Inactive Synthroid 88 mcg tablet RxNorm: 530202 1 TABLET(S) PO DAILY 05/18/2014 Inactive cyclobenzaprine 10 mg tablet RxNorm: 561500 1 TABLET(S) PO NEEDED TAKE 1 TABLET BY MOUTH EVERY 8 HOURS NEEDED 02/18/2014 05/25/2014 Inactive doxycycline hyclate 100 mg tablet RxNorm: 671560 1 Tablet(s) PO BID 02/13/2014 02/22/2014 Inactive Bactroban 2 % topical ointment RxNorm: 729554 1 Application TOP BID 02/13/2014 03/12/2014 Inactive Victoza 3-Babak 0.6 mg/0.1 mL (18 mg/3 mL) subcutaneous pen injector RxNorm: 208415 1.2 MILLIGRAM(S) SQ DAILY 0.6 X 2 WEEKS THEN INCREASE TO 1.2MG DAILY 02/10/2014 05/10/2014 Inactive albuterol sulfate 1.25 mg/3 mL solution for nebulization RxNorm: 724393 3 MILLILITER(S) INH TID 02/07/20142014 Inactive 1 box Victoza 3-Babak 0.6 mg/0.1 mL (18 mg/3 mL) subcutaneous pen injector RxNorm: 862147 1.8 Milligram(s) SQ daily 0.6 x 2 weeks then increase to 1.2mg daily 01/27/2014 05/26/2014 Inactive Levemir Flexpen 100 unit/mL (3 mL) solution subcutaneous insulin pen RxNorm: 268011 5units sq at hs, increase by 3 Unit(s) SQ at hs every 3days, goal FSBS 170 or less, do not increase above 20units, call doctor with report 01/27/2014 05/26/2014 Inactive hydrocodone 7.5 mg-acetaminophen 300 mg tablet RxNorm: 904382 Tablet(s) PO TAKE 1 TABLET BY MOUTH EVERY 6 HOURS NEEDED FOR PAIN 01/24/2014 03/18/2014 Inactive ( Appended: Controlled substance eRx refill - RxReferenceNumber: [id number]|1|0|1 ) Xanax 0.5 mg tablet RxNorm: 219929 1 Tablet(s) PO TID PRN as needed 01/24/2014 09/21/2014 Inactive (Appended: Controlled substance eRx refill - RxReferenceNumber: [id number]|1|0|1) Xanax 0.5 mg tablet RxNorm: 659912 TAKE 1 TABLET BY MOUTH THREE TIMES DAILY NEEDED 01/23/2014 02/21/2014 Inactive (Response to an electronic controlled substance refill request - RxReferenceNumber: [id number]|1|0|1) hydrocodone 5 mg-acetaminophen 325 mg tablet RxNorm: 055539 TAKE 1 TABLET BY MOUTH EVERY 6 HOURS NEEDED FOR PAIN 01/21/2014 02/19/2014 Inactive (Response to an electronic controlled substance refill request - RxReferenceNumber: [id number]| [id number]|1|0|1) Lasix 20 mg tablet RxNorm: 880274 TAKE 2 TABLETS BY MOUTH EVERY MORNING AND 1 TABLET BY MOUTH AT 3 PM 01/17/20142013 Inactive cyclobenzaprine 10 mg tablet RxNorm: 846100 1 Tablet(s) PO as needed TAKE 1 TABLET BY MOUTH EVERY 8 HOURS NEEDED 01/13/2014 02/17/2014 Inactive Anusol-HC 25 mg suppository RxNorm: 2132725 1 SUPPOSITORY RTL PRN ONE PER RECTUM NEEDED, UP TO TWICE DAILY FOR HEMORRHOID, NO MORE THAN 7 DAYS IN A ROW 01/10/2014 02/06/2014 Inactive Activella 0.5 mg-0.1 mg tablet RxNorm: 3086101 1 Tablet(s) PO daily TAKE 1 TABLET BY MOUTH DAILY FOR MENOPAUSAL SYMPTOM 01/08/2014 05/01/2014 Inactive gabapentin 600 mg tablet RxNorm: 623546 1.5 Tablet(s) PO TID 02/18/2014 Inactive gabapentin 600 mg tablet RxNorm: 673828 1.5 Tablet(s) PO TID 01/01/2014 Inactive hydrocodone 7.5 mg-acetaminophen 300 mg tablet RxNorm: 253564 Tablet(s) PO TAKE 1 TABLET BY MOUTH EVERY 6 HOURS NEEDED FOR PAIN 12/12/2013 01/23/2014 Inactive ( Appended: Controlled substance [id number]|1|0|1 ) Levaquin 250 mg tablet RxNorm: 929713 1 Tablet(s) PO daily 12/18/2013 Inactive 2 tabs today then 1 tab daily until gone Diflucan 150 mg tablet RxNorm: 678116 1 Tablet(s) PO daily 12/16/2013 Inactive do not stat until levaquin is completed Cartia XT 180 mg capsule,extended release RxNorm: 585072 1 CAPSULE(S) PO DAILY TAKE 1 CAPSULE BY MOUTH AT BEDTIME ..TAKE THIS IN ADDITION TO 240 MG IN THE MORNING 12/12/2013 12/06/2014 Inactive diltiazem ER (XR/XT) 240 mg capsule,extended release, controlled RxNorm: 429664 1 Capsule(s) PO daily TAKE 1 CAPSULE BY MOUTH EVERY DAY 11/28/2014 Inactive Effexor XR 37.5 mg capsule,extended release RxNorm: 067780 Capsule(s) PO TAKE 2 CAPSULES BY MOUTH EVERY MORNING AND 1 CAPSULE BY MOUTH EVERY NIGHT AT BEDTIME 12/04/2013 07/06/2014 Inactive Lasix 20 mg tablet RxNorm: 315164 TABLET(S) PO TAKE 2 TABLETS BY MOUTH EVERY MORNING AND 1 TABLET BY MOUTH AT 3 PM 12/04/2013 12/09/2014 Inactive Voltaren 1 % topical gel RxNorm: 381331 4 Gram(s) TOP QID 11/2703/26/2014 Inactive Cartia XT 180 mg capsule,extended release RxNorm: 729964 1 Capsule(s) PO daily TAKE 1 CAPSULE BY MOUTH AT BEDTIME ..TAKE THIS IN ADDITION TO 240 MG IN THE MORNING 11/27/2013 01/12/2015 Inactive Lasix 20 mg tablet RxNorm: TABLET(S) PO TAKE 2 TABLETS BY MOUTH EVERY MORNING AND 1 TABLET BY MOUTH AT 3 PM 11/26/2013 02/19/2014 Inactive colestipol 1 gram tablet RxNorm: 4010849 1 Tablet(s) PO BID TAKE 1 TABLET BY MOUTH TWICE DAILY 11/26/2013 11/20/2014 Inactive cyclobenzaprine 10 mg tablet RxNorm: 332581 Tablet(s) PO TAKE 1 TABLET BY MOUTH EVERY 8 HOURS NEEDED 11/21/20132013 Inactive Diflucan 150 mg tablet RxNorm: 420050 1 Tablet(s) PO daily TAKE 1 TABLET BY MOUTH EVERY OTHER DAY FOR 8 DOSES 11/14/201306/2013 Inactive peak flow meter-inh assist dev kit RxNorm: 1 dose Miscellaneous PRN 11/14/2013 10/27/2017 Inactive Effexor XR 37.5 mg capsule,extended release RxNorm: 081494 Capsule(s) PO TAKE 2 CAPSULES BY MOUTH EVERY MORNING AND 1 CAPSULE BY MOUTH EVERY NIGHT AT BEDTIME 11/04/2013 12/03/2013 Inactive Anusol-HC 25 mg suppository RxNorm: 7059506 1 Suppository RTL PRN one per rectum as needed, up to twice daily for hemorrhoid, no more than 7 days in a row 10/23/2013 10/22/2013 Inactive Anusol-HC 25 mg suppository RxNorm: 3053116 1 Suppository RTL PRN one per rectum as needed, up to twice daily for hemorrhoid, no more than 7 days in a row 10/23/2013 01/09/2014 Inactive Activella 0.5 mg-0.1 mg tablet RxNorm: 7299913 Tablet(s) PO TAKE 1 TABLET BY MOUTH DAILY FOR MENOPAUSAL SYMPTOM 10/21/2013 01/07/2014 Inactive cyclobenzaprine 10 mg tablet RxNorm: 381752 Tablet(s) PO TAKE 1 TABLET BY MOUTH EVERY 8 HOURS NEEDED 10/21/20132013 Inactive Lasix 20 mg tablet RxNorm: 592958 Tablet(s) PO TAKE 2 TABLETS BY MOUTH EVERY MORNING AND 1 TABLET BY MOUTH AT 3 PM 10/17/2013 02/25/2016 Inactive Bactroban 2 % topical ointment RxNorm: 644909 1 Application TOP BID 10/10/2013 11/06/2013 Inactive Zofran 4 mg tablet RxNorm: 929206 1 Tablet(s) PO Q4-6H 201303/20/2014 Inactive Bactroban 2 % topical ointment RxNorm: 891333 1 Application TOP BID 09/27/2013 10/09/2013 Inactive hydrocodone 5 mg-acetaminophen 325 mg tablet RxNorm: 780769 Tablet(s) PO TAKE 1 TABLET BY MOUTH EVERY 6 HOURS NEEDED FOR PAIN 09/26/2013 12/11/2013 Inactive ( Appended: Controlled substance eRx refill - RxReferenceNumber: [id number]|1|0|1 ) hydrocodone 5 mg-acetaminophen 325 mg tablet RxNorm: 074895 1 Tablet(s) PO Q6 PRN 09/26/2013 01/24/2014 Inactive cyclobenzaprine 10 mg tablet RxNorm: 296589 Tablet(s) PO TAKE 1 TABLET BY MOUTH EVERY 8 HOURS NEEDED 09/16/2013 No Stop Date Active omeprazole 20 mg capsule,delayed release RxNorm: 327607 Capsule(s) PO TAKE 1 CAPSULE BY MOUTH TWICE DAILY 09/02/2013 Inactive Lasix 20 mg tablet RxNorm: 169273 Tablet(s) PO TAKE 2 TABLETS BY MOUTH EVERY MORNING AND 1 TABLET BY MOUTH AT 3 PM 09/02/2013 04/10/2016 Inactive Diflucan 150 mg tablet RxNorm: 184621 Tablet(s) PO TAKE 1 TABLET BY MOUTH EVERY OTHER DAY FOR 8 DOSES 08/29/20132013 Inactive Effexor XR 37.5 mg capsule,extended release RxNorm: 012908 Capsule(s) PO TAKE 2 CAPSULES BY MOUTH EVERY MORNING AND 1 CAPSULE BY MOUTH EVERY NIGHT AT BEDTIME 08/29/2013 11/03/2013 Inactive diltiazem ER (XR/XT) 240 mg capsule,extended release, controlled RxNorm: 730524 Capsule(s) PO TAKE 1 CAPSULE BY MOUTH EVERY DAY 201312/03/2013 Inactive Xanax 0.5 mg tablet RxNorm: 944854 1 Tablet(s) PO TID PRN 11/2013 No Stop Date Active (Appended: Controlled substance eRx refill - RxReferenceNumber: [id number]| [id number]|1|0|1) colestipol 1 gram tablet RxNorm: 7842214 Tablet(s) PO TAKE 1 TABLET BY MOUTH TWICE DAILY 08/26/2013 11/25/2013 Inactive Victoza 3-Babak 0.6 mg/0.1 mL (18 mg/3 mL) subcutaneous pen injector RxNorm: 263361 1.2 Milligram(s) SQ daily 0.6 x 2 weeks then increase to 1.2mg daily 08/19/2013 12/16/2013 Inactive Synthroid 88 mcg tablet RxNorm: 349658 1 Tablet(s) PO daily 12/09/2013 Inactive Lasix 20 mg tablet RxNorm: Tablet(s) PO TAKE 2 TABLETS BY MOUTH EVERY MORNING AND 2 TABLETS BY MOUTH AT 3 PM 08/12/2013 10/18/2016 Inactive Xanax 0.5 mg tablet RxNorm: 738613 1 Tablet(s) PO TID PRN No Stop Date Active (Appended: Controlled substance eRx refill - RxReferenceNumber: [id number]| [id number]|1|0|1) Lasix 20 mg tablet RxNorm: Tablet(s) PO TAKE 2 TABLETS BY MOUTH EVERY MORNING AND 1 TABLET BY MOUTH AT 3 PM 08/07/2013 08/11/2013 Inactive Voltaren 1 % topical gel RxNorm: 837871 4 Gram(s) TOP QID 08/0111/26/2013 Inactive Zyvox 600 mg tablet RxNorm: 772157 1 Tablet(s) PO BID 201307/27/2013 Inactive please call the office is this is too expensive for the pt Zyvox 600 mg tablet RxNorm: 487297 1 Tablet(s) PO BID 201307/17/2013 Inactive hydrocodone 5 mg-acetaminophen 325 mg tablet RxNorm: 8307055 1 Tablet(s) PO Q6 PRN 07/15/2013 09/26/2013 Inactive Zofran 4 mg tablet RxNorm: 349430 1 Tablet(s) PO Q4-6H 201310/02/2013 Inactive Lasix 20 mg tablet RxNorm: Tablet(s) PO TAKE 2 TABLETS BY MOUTH EVERY MORNING AND 1 TABLET BY MOUTH AT 3 PM 07/11/2013 10/18/2016 Inactive cyclobenzaprine 10 mg tablet RxNorm: 909018 1 Tablet(s) PO Q8 PRN 06/27/2013 08/25/2013 Inactive gabapentin 600 mg tablet RxNorm: 567885 1.5 Tablet(s) PO TID 01/02/2014 Inactive Lasix 20 mg tablet RxNorm: 276023 Tablet(s) PO TAKE 2 TABLETS BY MOUTH EVERY MORNING AND 1 TABLET BY MOUTH AT 3 PM 06/17/2013 07/10/2013 Inactive hydrocodone 5 mg-acetaminophen 325 mg tablet RxNorm: 577686 1 Tablet(s) PO Q6 PRN 06/10/2013 07/14/2013 Inactive hydrocortisone 2.5 % rectal cream RxNorm: 303277 1 Suppository RTL BID PRN 06/10/2013 06/29/2013 Inactive Flexeril 10 mg tablet RxNorm: 329699 1 Tablet(s) PO Q8 PRN 06/0406/26/2013 Inactive diltiazem ER (XR/XT) 240 mg capsule,extended release, controlled RxNorm: 937550 Capsule(s) PO TAKE 1 CAPSULE BY MOUTH EVERY DAY 201310/26/2017 Inactive omeprazole 20 mg capsule,delayed release RxNorm: 072109 Capsule(s) PO TAKE 1 CAPSULE BY MOUTH TWICE DAILY 05/24/2013 Inactive colestipol 1 gram tablet RxNorm: 0855253 Tablet(s) PO TAKE 1 TABLET BY MOUTH TWICE DAILY 05/23/2013 04/21/2016 Inactive Januvia 100 mg tablet RxNorm: 103994 1 Tablet(s) PO daily 201308/18/2013 Inactive Activella 0.5 mg-0.1 mg tablet RxNorm: 006613 Tablet(s) PO TAKE 1 TABLET BY MOUTH DAILY FOR MENOPAUSAL SYMPTOM 05/17/2013 Inactive Xanax 0.5 mg tablet RxNorm: 387460 1 Tablet(s) PO TID PRN 08/06/2013 Inactive (Appended: Controlled substance eRx refill - RxReferenceNumber: [id number]| [id number]|1|0|1) Kenalog 40 mg/mL suspension for injection RxNorm: 2820156 Milliliter(s) Inj 05/07/2013 05/07/2013 Inactive levofloxacin 500 mg tablet RxNorm: 938999 1 Tablet(s) PO daily pt to take 500mg on day#1, 3, 5, 7 and 1/2 tablet on days 2, 4, 6, and 8 05/0705/14/2013 Inactive Lyrica 50 mg capsule RxNorm: 247116 1 Capsule(s) PO TID 201206/26/2013 Inactive hydrocodone 5 mg-acetaminophen 500 mg tablet RxNorm: 084439 1 Tablet(s) PO Q6 PRN 04/22/2013 06/09/2013 Inactive Zofran 4 mg tablet RxNorm: 042742 1 Tablet(s) PO Q4-6H 201207/14/2013 Inactive Zofran 4 mg tablet RxNorm: 803665 1 Tablet(s) PO Q6 PRN 04/0404/08/2013 Inactive hydrocodone 5 mg-acetaminophen 500 mg tablet RxNorm: 841141 1 Tablet(s) PO Q6 PRN 03/21/2013 04/21/2013 Inactive Diflucan 150 mg tablet RxNorm: 436932 1 Tablet(s) PO every other day 1 pill po every other day x 8 doses 03/19/201306/26 Inactive potassium chloride ER 10 mEq tablet,extended release RxNorm: 283974 1 Tablet(s) PO QDAY PRN take with lasix 03/07/201302/2014 Inactive potassium chloride ER 10 mEq tablet,extended release RxNorm: 918497 1 Tablet(s) PO QDAY PRN take with lasix 03/04/2013 Inactive fluconazole 150 mg tablet RxNorm: 728524 1 Tablet(s) PO daily 03/01/2013 02/28/2013 Inactive fluconazole 150 mg tablet RxNorm: 945281 1 Tablet(s) PO daily 03/01/2013 03/05/2013 Inactive Combivent 18 mcg-103 mcg/actuation Aerosol Inhaler RxNorm: 452130 2 Puff(s) INH QID 02/12/2013 02/12/2013 Inactive Zofran 4 mg tablet RxNorm: 162113 1 Tablet(s) PO Q6 PRN 02/1104/03/2013 Inactive Lasix 20 mg tablet RxNorm: 823492 1 Tablet(s) PO BID one pill in morning and one pill in afternoon (3pm) 02/04/2013 Inactive Xopenex HFA 45 mcg/actuation Aerosol Inhaler RxNorm: 510620 2 INH QID 01/29/2013 09/21/2015 Inactive Effexor XR 37.5 mg capsule,extended release RxNorm: 742236 2 q am and 1 at hs Capsule(s) PO TAKE 2 CAPSULES BY MOUTH EVERY MORNING AND 1 CAPSULE EVERY NIGHT AT BEDTIME 01/29/2013 02/15/2016 Inactive fluconazole 150 mg tablet RxNorm: 801108 1 Tablet(s) PO daily 01/29/2013 02/02/2013 Inactive hydrocodone 5 mg-acetaminophen 500 mg tablet RxNorm: 702057 1 Tablet(s) PO Q6 PRN 01/29/2013 03/20/2013 Inactive Effexor XR 37.5 mg capsule,extended release RxNorm: 242987 Capsule(s) PO 01/29/2013 08/28/2013 Inactive TAKE 2 CAPSULES BY MOUTH EVERY MORNING AND 1 CAPSULE EVERY NIGHT AT BEDTIME doxycycline hyclate 100 mg tablet RxNorm: 169651 1 Tablet(s) PO BID 01/01/2013 01/10/2013 Inactive doxycycline hyclate 100 mg tablet RxNorm: 703727 1 Tablet(s) PO BID 01/01/2013 12/31/2012 Inactive Synthroid 75 mcg tablet RxNorm: 862666 1 Tablet(s) PO daily 06/29/2013 Inactive Synthroid 75 mcg tablet RxNorm: 222849 1 Tablet(s) PO daily 12/31/2012 Inactive Xanax 0.5 mg tablet RxNorm: 546902 Tablet(s) PO TAKE 1/2 TO 1 TABLET BY MOUTH EVERY 8 HOURS NEEDED FOR ANXIETY 12/27/2012 05/06/2013 Inactive (Appended: Controlled substance eRx refill - RxReferenceNumber: [id number]|1|0|1) Lasix 20 mg tablet RxNorm: 852495 1 Tablet(s) PO daily 201202/03/2013 Inactive Santyl 250 unit/gram Topical Ointment RxNorm: 8865121 1 Application TOP daily 12/20/2012 12/29/2012 Inactive Levaquin 500 mg tablet RxNorm: 435219 1 Tablet(s) PO daily 05/201212/26/2012 Inactive acyclovir 400 mg tablet RxNorm: 229305 1 Tablet(s) PO TID 12/0312/09/2012 Inactive acyclovir 400 mg tablet RxNorm: 783764 1 Tablet(s) PO TID 12/0312/02/2012 Inactive fluconazole 150 mg tablet RxNorm: 417938 1 Tablet(s) PO daily 11/26/2012 11/30/2012 Inactive Effexor XR 37.5 mg capsule,extended release RxNorm: 129488 Capsule(s) PO TAKE 2 CAPSULES BY MOUTH EVERY MORNING AND 1 CAPSULE EVERY NIGHT AT BEDTIME 11/14/2012 01/28/2013 Inactive albuterol sulfate 1.25 mg/3 mL solution for nebulization RxNorm: 169785 3 Milliliter(s) INH TID 10/29/20122012 Inactive 1 box Cartia XT 180 mg capsule,extended release RxNorm: 417145 1 Capsule(s) PO daily TAKE 1 CAPSULE BY MOUTH AT BEDTIME ..TAKE THIS IN ADDITION TO 240 MG IN THE MORNING 10/29/2012 11/26/2013 Inactive acyclovir 800 mg tablet RxNorm: 660706 1 Tablet(s) PO BID 10/2911/04/2012 Inactive Diflucan 150 mg tablet RxNorm: 472544 1 Tablet(s) PO daily 10/14/2012 Inactive TAKE 1 TABLET BY MOUTH EVERY DAY Toprol XL 100 mg tablet,extended release RxNorm: 415069 1 Tablet(s) PO BID 10/11/2012 09/05/2013 Inactive Zithromax Z-Babak 250 mg tablet RxNorm: 051944 Tablet(s) PO UD as directed. 1 refill , please take back to back 10/05/2012 No Stop Date Active Kenalog 40 mg/mL Susp for Injection RxNorm: 2087309 1 Milliliter(s) Inj QID 09/21/2012 05/07/2013 Inactive fluconazole 150 mg tablet RxNorm: 750194 1 Tablet(s) PO every other day x 5 doses 09/12/2012 11/25/2012 Inactive levothyroxine 50 mcg tablet RxNorm: 631784 1 Tablet(s) PO daily 09/06/2012 12/31/2012 Inactive atorvastatin 40 mg tablet RxNorm: 071446 1 Tablet(s) PO daily 09/06/2012 08/31/2013 Inactive TAKE 1 TABLET BY MOUTH DAILY (THIS IS AN INCREASE IN DOSAGE) Xanax 0.5 mg tablet RxNorm: 824988 Tablet(s) PO TAKE 1/2 TO 1 TABLET BY MOUTH EVERY 8 HOURS NEEDED FOR ANXIETY 08/27/2012 12/26/2012 Inactive (Appended: Controlled substance eRx refill - RxReferenceNumber: [id number]|1|0|1) Zofran 4 mg tablet RxNorm: 449296 1 Tablet(s) PO Q6 PRN 08/1302/10/2013 Inactive Cipro 500 mg tablet RxNorm: 393692 1 Tablet(s) PO BID 201208/07/2012 Inactive Cipro 500 mg tablet RxNorm: 862867 1 Tablet(s) PO BID 201208/12/2012 Inactive Flagyl 500 mg tablet RxNorm: 146844 1 Tablet(s) PO TID 201208/12/2012 Inactive cefdinir 300 mg capsule RxNorm: 364475 1 Capsule(s) PO BID 08/201207/29/2012 Inactive nystatin 100,000 unit/mL Oral Susp RxNorm: 346140 6 Unit(s) PO QID 07/06/2012 07/15/2012 Inactive Kenalog 40 mg/mL Susp for Injection RxNorm: 8437808 1 Milliliter(s) Inj 07/06/2012 07/06/2012 Inactive Zithromax 500 mg tablet RxNorm: 7718095 1 Tablet(s) PO daily 07/10/2012 Inactive metformin 850 mg tablet RxNorm: 083123 1/2 Tablet(s) PO TID 09/201208/24/2012 Inactive TAKE 1 TABLET BY MOUTH IN THE MORNING, 1/2 TABLET AT NOON, AND 1 TABLET IN THE EVENING Lyrica 50 mg capsule RxNorm: 949308 1 Capsule(s) PO TID 201206/25/2012 Inactive Diflucan 150 mg tablet RxNorm: 656788 1 Tablet(s) PO daily 05/201206/25/2012 Inactive TAKE 1 TABLET BY MOUTH EVERY DAY Levaquin 500 mg tablet RxNorm: 558176 1 Tablet(s) PO daily 06/19/2012 Inactive Pneumovax 23 25 mcg/0.5 mL Injection RxNorm: 997857 1/2 Milliliter(s) Inj 06/07/2012 06/07/2012 Inactive metformin 850 mg tablet RxNorm: 063856 1/2 Tablet(s) PO BID 06/25/2012 Inactive TAKE 1 TABLET BY MOUTH IN THE MORNING, 1/2 TABLET AT NOON, AND 1 TABLET IN THE EVENING cefdinir 300 mg capsule RxNorm: 428842 1 Capsule(s) PO BID 02/201305/30/2012 Inactive cefdinir 300 mg capsule RxNorm: 716679 1 Capsule(s) PO BID 02/201306/06/2012 Inactive prednisone 10 mg tablets in a dose pack RxNorm: 738567 Tablet(s) PO UD 6-5-4-3-2- 1 05/31/2012 05/06/2013 Inactive Cipro 500 mg tablet RxNorm: 067233 1 Tablet(s) PO BID 201206/03/2012 Inactive Xanax 0.5 mg tablet RxNorm: 211668 Tablet(s) PO TAKE 1/2 TO 1 TABLET BY MOUTH EVERY 8 HOURS NEEDED FOR ANXIETY 05/28/2012 08/27/2012 Inactive (Appended: Controlled substance eRx refill - RxReferenceNumber: [id number]|1|0|1) Cartia XT 180 mg capsule,extended release RxNorm: 409683 Capsule(s) PO TAKE 1 CAPSULE BY MOUTH AT BEDTIME ..TAKE THIS IN ADDITION TO 240 MG IN THE MORNING 05/24/2012 10/28/2012 Inactive Diflucan 150 mg tablet RxNorm: 008690 1 Tablet(s) PO daily 06/201205/26/2012 Inactive TAKE 1 TABLET BY MOUTH EVERY DAY Cartia XT 240 mg capsule,extended release RxNorm: 791238 1 Capsule(s) PO QA 05/23/2012 09/06/2012 Inactive in addition to 180mg q pm omeprazole 20 mg capsule,delayed release RxNorm: 435028 Capsule(s) PO TAKE 1 CAPSULE BY MOUTH TWICE DAILY 05/21/2012 Inactive diltiazem ER (XR/XT) 240 mg capsule,extended release, controlled RxNorm: 727491 1 Capsule(s) PO daily TAKE ONE CAPSULE BY MOUTH EVERY DAY 05/21/2012 05/30/2013 Inactive Toprol XL 25 mg tablet,extended release RxNorm: 511028 1 Tablet(s) PO QPM take with 50mg (1/2 tab of 100mg) each evening. Continue 100mg in the morning. 05/17/2012 05/27/2012 Inactive Activella 0.5 mg-0.1 mg tablet RxNorm: 8157166 Tablet(s) PO TAKE 1 TABLET BY MOUTH DAILY FOR MENOPAUSAL SYMPTOM 05/09/2012 05/16/2013 Inactive colestipol 1 gram tablet RxNorm: 3287100 Tablet(s) PO TAKE 1 TABLET BY MOUTH TWICE DAILY 05/08/2012 04/21/2016 Inactive Kenalog 40 mg/mL Susp for Injection RxNorm: 0976877 1 Milliliter(s) Inj 05/02/2012 05/02/2012 Inactive Xanax 0.5 mg tablet RxNorm: 757308 Tablet(s) PO 04/16/2012 05/28/2012 Inactive TAKE 1/2 TO 1 TABLET BY MOUTH EVERY 8 HOURS NEEDED FOR ANXIETY (Appended: Controlled substance eRx refill - RxReferenceNumber: [id number]|1|0|1) Diflucan 150 mg tablet RxNorm: 377402 1 Tablet(s) PO daily 05/22/2012 Inactive TAKE 1 TABLET BY MOUTH EVERY DAY Cipro 500 mg tablet RxNorm: 661630 1 Tablet(s) PO BID 201104/19/2012 Inactive Zithromax Z-Babak 250 mg tablet RxNorm: 213592 Tablet(s) PO UD 05/30/2012 Inactive metformin 850 mg tablet RxNorm: 613272 Tablet(s) PO take one pill by mouth in AM, 1/2 at noon, and 1 pill in the evening. 03/16/2012 06/06/2012 Inactive TAKE 1 TABLET BY MOUTH IN THE MORNING, 1/2 TABLET AT NOON, AND 1 TABLET IN THE EVENING Xanax 0.5 mg tablet RxNorm: 809238 Tablet(s) PO 03/05/2012 04/15/2012 Inactive TAKE 1/2 TO 1 TABLET BY MOUTH EVERY 8 HOURS NEEDED FOR ANXIETY (Appended: Controlled substance eRx refill - [id number]|1|0|1) potassium chloride ER 10 mEq tablet,extended release RxNorm: 667861 1 Tablet(s) PO QDAY PRN take with lasix 03/05/201204/2013 Inactive potassium chloride ER 10 mEq tablet,extended release RxNorm: 664379 1 Tablet(s) PO QDAY PRN take with lasix 02/28/2012 Inactive Lasix 20 mg tablet RxNorm: 801369 Tablet(s) PO QDAY PRN 02/2708/25/2012 Inactive doxycycline hyclate 100 mg capsule RxNorm: 189947 1 Capsule(s) PO BID 02/27/2012 03/04/2012 Inactive Effexor XR 37.5 mg capsule,extended release RxNorm: 235024 Capsule(s) PO 02/26/2012 01/28/2013 Inactive TAKE 2 CAPSULES BY MOUTH EVERY MORNING AND 1 CAPSULE EVERY NIGHT AT BEDTIME Lomotil 2.5 mg-0.025 mg tablet RxNorm: 9088800 Tablet(s) PO 07/201103/05/2012 Inactive 1 after each loose bm limit 4 per day doxycycline hyclate 100 mg capsule RxNorm: 296295 1 Capsule(s) PO BID 02/15/2012 02/21/2012 Inactive Diflucan 150 mg tablet RxNorm: 197158 Tablet(s) PO daily 201102/21/2012 Inactive TAKE 1 TABLET BY MOUTH EVERY DAY colestipol,micronized 1 gram tablet RxNorm: 8064111 Tablet(s) PO 02/06/2012 04/21/2016 Inactive TAKE 1 TABLET BY MOUTH TWICE DAILY Effexor XR 37.5 mg capsule,extended release RxNorm: 015892 Capsule(s) PO 02/06/2012 02/16/2016 Inactive TAKE 2 CAPSULES BY MOUTH EVERY MORNING AND 1 CAPSULE EVERY NIGHT AT BEDTIME potassium chloride ER 10 mEq tablet,extended release RxNorm: 333426 1 Tablet(s) PO QDAY PRN take with lasix 02/01/201212/2011 Inactive Levaquin 500 mg tablet RxNorm: 868234 1 Tablet(s) PO daily 04/201202/07/2012 Inactive Diflucan 150 mg tablet RxNorm: 097036 Tablet(s) PO 01/27/2012 02/14/2012 Inactive TAKE 1 TABLET BY MOUTH EVERY DAY Effexor XR 37.5 mg capsule,extended release RxNorm: 785206 Capsule(s) PO 01/05/2012 02/05/2012 Inactive TAKE 2 CAPSULES BY MOUTH EVERY MORNING , AND 1 CAPSULE BY MOUTH EVERY NIGHT AT BEDTIME Effexor XR 37.5 mg capsule,extended release RxNorm: 777698 Capsule(s) PO 12/29/2011 01/04/2012 Inactive TAKE 2 CAPSULES BY MOUTH EVERY MORNING , AND 1 CAPSULE BY MOUTH EVERY NIGHT AT BEDTIME Diflucan 150 mg tablet RxNorm: 616947 Tablet(s) PO 12/29/2011 04/09/2012 Inactive TAKE 1 TABLET BY MOUTH EVERY DAY Cipro 500 mg tablet RxNorm: 732716 1 Tablet(s) PO BID 201101/07/2012 Inactive Toprol XL 100 mg tablet,extended release RxNorm: 419532 Tablet(s) PO as doctor directed one tab in am and 1/2 at night 11/30/2011 10/10/2012 Inactive Phenergan 25 mg/mL Injection RxNorm: 049326 Milliliter(s) Inj 11/30/2011 11/30/2011 Inactive Toprol XL 100 mg 24 hr Tab RxNorm: 029881 1.5 Tablet(s) PO as doctor directed one tab in am and 1/2 at night 11/17/201102/2012 Inactive Xopenex HFA 45 mcg/actuation Aerosol Inhaler RxNorm: 533706 2 INH QID 11/08/2011 12/01/2012 Inactive Effexor XR 150 mg 24 hr Cap RxNorm: 244616 1 Capsule(s) PO daily 10/24/2011 01/04/2012 Inactive Xanax 0.5 mg tablet RxNorm: 701308 1/2-1 Tablet(s) PO Q8 PRN 10/20/2011 03/05/2012 Inactive levothyroxine 25 mcg tablet RxNorm: 195968 Tablet(s) PO 201109/05/2012 Inactive TAKE 1 TABLET BY MOUTH DAILY Xanax 0.5 mg Tab RxNorm: 348734 1/2-1 Tablet(s) PO Q8 PRN 09/26/2011 10/19/2011 Inactive potassium chloride ER 10 mEq Tab RxNorm: 130821 1 Tablet(s) PO daily 09/20/2011 09/24/2011 Inactive Lasix 20 mg Tab RxNorm : 523811 1 Tablet(s) PO daily 09/20/2011 09/24/2011 Inactive Xanax 0.5 mg Tab RxNorm: 117774 1/2-1 Tablet(s) PO Q8 PRN 09/12/2011 09/25/2011 Inactive Xanax 0.5 mg Tab RxNorm: 820445 1/2-1 Tablet(s) PO Q8 PRN 08/24/2011 09/11/2011 Inactive Lipitor 20 mg tablet RxNorm: 853904 Tablet(s) PO 08/22/2011 09/05/2012 Inactive TAKE 1 TABLET BY MOUTH DAILY (THIS IS AN INCREASE IN DOSAGE) Cipro 500 mg Tab RxNorm: 436010 1 Tablet(s) PO BID 201110/24/2011 Inactive Flagyl 500 mg Tab RxNorm: 774718 1 Tablet(s) PO TID 201110/24/2011 Inactive Diflucan 150 mg Tab RxNorm: 471535 1 Tablet(s) PO daily 201110/24/2011 Inactive Kenalog 40 mg/mL Susp for Injection RxNorm: 2832183 1 Milliliter(s) Inj 08/01/2011 10/24/2011 Inactive FreeStyle Lancets RxNorm: 1 test Miscellaneous TID 201107/08/2014 Inactive dispense quantity sufficient for three times daily testing for diabetes FreeStyle Test strips RxNorm: 1 Miscellaneous BID 07/21/2011 08/13/2012 Inactive please give lancets alsodx 250.02 Xanax 0.25 mg Tab RxNorm: 868499 1 Tablet(s) PO Q8 PRN 07/06 No Stop Date Active colestipol 1 gram Tab RxNorm: 2656770 Tablet(s) PO 07/04/2011 04/21/2016 Inactive TAKE 1 TABLET BY MOUTH TWICE DAILY DIRECTED colestipol 1 gram tablet RxNorm: 8898886 1 Tablet(s) PO BID 07/03/2011 Inactive Cartia XT 180 mg capsule,extended release RxNorm: 522714 1 Capsule(s) PO QHS 06/30/2011 11/16/2011 Inactive in addition to 240mg q am venlafaxine 37.5 mg Tab RxNorm: 353188 1 Tablet(s) PO BID 06/2406/29/2011 Inactive prednisone 5 mg Tab RxNorm: 995937 Tablet(s) PO UD 2011 10/24/2011 Inactive six day taper #21 Lyrica 50 mg capsule RxNorm: 726366 1 Capsule(s) PO TID 201108/18/2011 Inactive Diflucan 150 mg tablet RxNorm: 574812 1 Tablet(s) PO daily 06/24/2011 Inactive levofloxacin 500 mg Tab RxNorm: 167239 1 Tablet(s) PO daily 08/15/2011 Inactive azithromycin 250 mg Tab RxNorm: 676525 PO 05/23/2011 06/20/2011 Inactive omeprazole 20 mg capsule,delayed release RxNorm: 400644 Capsule(s) PO 05/10/2011 05/20/2012 Inactive TAKE 1 CAPSULE BY MOUTH TWICE DAILY;Patient requests 90 day supply diltiazem ER (XR/XT) 240 mg capsule,extended release, controlled RxNorm: 439118 Capsule(s) PO 04/19/2011 05/21/2012 Inactive TAKE 1 CAPSULE BY MOUTH EVERY MORNING;Patient requests 90 day supply Kenalog 40 mg/mL Susp for Injection RxNorm: 6350423 1 Milliliter(s) Inj 04/18/2011 06/20/2011 Inactive clindamycin 300 mg Cap RxNorm: 996432 1 Capsule(s) PO BID 04/1806/20/2011 Inactive lisinopril-hydrochlorothiazide 20 mg-12.5 mg Tab RxNorm: 087312 2 Tablet(s) PO daily 04/18/2011 10/24/2011 Inactive fluconazole 150 mg Tab RxNorm: 322648 1 Tablet(s) PO daily 07/201006/20/2011 Inactive Activella 0.5 mg-0.1 mg tablet RxNorm: 3066632 Tablet(s) PO 05/201005/08/2012 Inactive TAKE 1 TABLET BY MOUTH DAILY FOR MENOPAUSAL SYMPTOM diltiazem ER (XR/XT) 240 mg Continuous Release Cap RxNorm: 644101 1 Capsule(s) PO daily 03/17/2011 03/16/2011 Inactive diltiazem ER (XR/XT) 240 mg Continuous Release Cap RxNorm: 841806 Capsule(s) PO 03/17/2011 06/20/2011 Inactive TAKE 1 CAPSULE BY MOUTH EVERY MORNING metformin 850 mg tablet RxNorm: 212149 1 Tablet(s) PO as doctor directed take one pill by mouth in AM, 1/2 at noon, and 1 pill in the evening. 01/21/2011 04/20/2011 Inactive Xopenex 1.25 mg/3 mL solution for nebulization RxNorm: 930433 3 Milliliter(s) INH Q6 PRN No Start Date Active Novolog Flexpen U-100 Insulin aspart 100 unit/mL subcutaneous RxNorm: 6816373 10 units with meals plus SSI in comments per dr raines Unit(s) SQ No Start Date Active Novolg 10 units before meals PLUS extra if blood sugar is high. Add 1 u for BG 151-175, 2u for BG 176-200, 3 u for BG 201-225, 4u BG 226-250, 6u for BG 251-275, add 7u for BG 276-300, add 8u 301-325 Lomotil 2.5 mg-0.025 mg tablet RxNorm: 1102700 Tablet(s) PO No Start Date 02/21/2012 Inactive 1 after each loose bm limit 4 per day Novolog Flexpen U-100 Insulin aspart 100 unit/mL subcutaneous RxNorm: 4194282 10 Unit(s) SQ AC No Start Date 10/26 Inactive with sliding scale-Dr Raines Tresiba FlexTouch U-100 100 unit/mL (3 mL) subcutaneous insulin pen RxNorm: 3236928 40 Unit(s) SQ daily No Start Date Inactive gabapentin 600 mg tablet RxNorm: 675123 1 Tablet(s) PO TID No Start Date 06/26/2013 Inactive Effexor XR 37.5 mg capsule,extended release RxNorm: 491504 1 Capsule(s) PO BID No Start Date 10/23/2011 Inactive Levemir FlexTouch 100 unit/mL (3 mL) subcutaneous insulin pen RxNorm: 616861 50 Unit(s) SQ BID No Start Date 04/24/2017 Inactive Combivent Respimat 20 mcg-100 mcg/actuation solution for inhalation RxNorm: 0399755 1 INH QID No Start Date 05/11/2014 Inactive Xanax 0.5 mg Tab RxNorm: 055644 1/2-1 Tablet(s) PO Q8 PRN No Start Date 08/23/2011 Inactive Xopenex HFA 45 mcg/actuation Aerosol Inhaler RxNorm: 671089 2 INH QID No Start Date 11/07/2011 Inactive promethazine 25 mg tablet RxNorm: 755099 1 Tablet(s) PO Q8 as needed No Start Date 08/12/2015 Inactive colestipol 1 gram Tab RxNorm: 2019693 1 Tablet(s) PO BID No Start Date 07/03/2011 Inactive Cartia XT 240 mg capsule,extended release RxNorm: 223559 1 Capsule(s) PO QAM No Start Date 05/22/2012 Inactive in addition to 180mg q pm Lipitor 20 mg Tab RxNorm: 151123 1 Tablet(s) PO daily No Start Date 08/21/2011 Inactive FreeStyle Test Strips RxNorm: 1 Miscellaneous BID No Start Date 07/20/2011 Inactive Toumary SoloStar U-300 Insulin 300 unit/mL (1.5 mL) subcutaneous pen RxNorm: 8067194 40 Unit(s) SQ BID No Start Date 10/26/2017 Inactive Diflucan 150 mg tablet RxNorm: 945877 1 Tablet(s) PO daily 1 pill po every other day x 8 doses No Start Date 03/18/2013 Inactive hydrocodone 5 mg-acetaminophen 500 mg tablet RxNorm: 424977 1 Tablet(s) PO Q6 PRN No Start Date 01/28/2013 Inactive Lasix 20 mg tablet RxNorm: 689636 Tablet(s) PO QDAY PRN No Start Date 02/27/2012 Inactive Promethazine VC 6.25 mg-5 mg/5 mL Syrup RxNorm: 1449662 1-2 PO Q6 PRN No Start Date 10/07/2013 Inactive promethazine 25 mg tablet RxNorm: 925891 1 Tablet(s) PO Q6 PRN No Start Date 02/09/2017 Inactive digoxin 125 mcg tablet RxNorm: 632869 1 Tablet(s) PO daily No Start Date 06/20/2017 Inactive Xanax 0.25 mg Tab RxNorm: 829549 1 Tablet(s) PO Q8 PRN No Start Date 07/05/2011 Inactive Diflucan 150 mg tablet RxNorm: 729455 1 Tablet(s) PO every other day x 4 doses No Start Date 04/09/2014 Inactive Carafate 100 mg/mL Oral Susp RxNorm: 252486 2 Teaspoon(s) PO daily No Start Date 10/24/2011 Inactive prednisone 5 mg Tab RxNorm: 846490 Tablet(s) PO UD No Start Date 06/22/2011 Inactive six day taper #21 Tessalon Perles 100 mg capsule RxNorm: 911603 2 Capsule(s) PO TID as needed No Start Date 05/16/2017 Inactive Bactroban 2 % topical ointment RxNorm: 937795 1 Application TOP BID No Start Date 09/26/2013 Inactive Phenergan 25 mg tablet RxNorm: 889583 1 Tablet(s) PO Q8 as needed nausea No Start Date 06/28/2015 Inactive flecainide 50 mg tablet RxNorm: 324479 1 Tablet(s) PO BID No Start Date 02/01/2016 Inactive Activella 0.5 mg-0.1 mg Tab RxNorm: 1470585 1 Tablet(s) PO daily No Start Date 03/21/2011 Inactive hydrocodone 10 mg-acetaminophen 325 mg tablet RxNorm: 242611 1 Tablet(s) PO Q6 as needed No Start Date 02/04/2016 Inactive lisinopril 20 mg Tab RxNorm: 959273 1 Tablet(s) PO daily No Start Date 06/20/2011 Inactive prednisone 10 mg tablets in a dose pack RxNorm: 139060 Tablet(s) PO UD 6-5-4-3-2- 1 No Start Date 05/30/2012 Inactive hydrocodone 7.5 mg-acetaminophen 325 mg tablet RxNorm: 748997 1 Tablet(s) PO Q6 PRN No Start Date 10/06/2013 Inactive hyoscyamine 0.125 mg sublingual tablet RxNorm: 4321275 1 Tablet(s) SL TID as needed No Start Date 05/16/2017 Inactive Cartia XT 180 mg 24 hr Cap RxNorm: 028131 1 Capsule(s) PO QHS No Start Date 06/29/2011 Inactive in addition to 240mg q am Zofran 4 mg tablet RxNorm: 359320 1 Tablet(s) PO Q6 PRN No Start Date 08/12/2012 Inactive omeprazole 20 mg Cap, Delayed Release RxNorm: 878780 1 Capsule(s) PO BID No Start Date 05/09/2011 Inactive venlafaxine 37.5 mg Tab RxNorm: 668384 1 Tablet(s) PO BID No Start Date 10/24/2011 Inactive Vesicare 10 mg tablet RxNorm: 015937 1 Tablet(s) PO daily No Start Date 09/28/2015 Inactive levothyroxine 25 mcg Tab RxNorm: 677531 1 Tablet(s) PO daily No Start Date 10/18/2011 Inactive Zithromax Z-Babak 250 mg tablet RxNorm: 000274 Tablet(s) PO UD No Start Date 04/01/2012 Inactive Januvia 100 mg tablet RxNorm: 953237 1 Tablet(s) PO daily No Start Date 05/22/2013 Inactive Lantus Solostar 100 unit/mL (3 mL) subcutaneous insulin pen RxNorm: 241737 Unit( s) SQ No Start Date 04/17/2017 Inactive 10 units q am and 50units at night fluconazole 150 mg tablet RxNorm: 487939 1 Tablet(s) PO every other day x 5 doses No Start Date 09/11/2012 Inactive Toprol XL 25 mg 24 hr Tab RxNorm: 654127 1 Tablet(s) PO daily No Start Date 11/16/2011 Inactive Medication Administered Medication Codes Instructions Start Date Status Kenalog 40 mg/mL suspension for injection RxNorm: 2461063 Milliliter 06/26/2015 No longer Active Kenalog 40 mg/mL suspension for injection RxNorm: 9476978 Milliliter 05/07/2013 No longer Active Kenalog 40 mg/mL Susp for Injection RxNorm: 3599662 1Milliliter 07/06/2012 No longer Active Pneumovax 23 25 mcg/0.5 mL Injection RxNorm: 933345 1/2Milliliter 06/07/2012 No longer Active Kenalog 40 mg/mL Susp for Injection RxNorm: 3260966 1Milliliter 05/02/2012 No longer Active Phenergan 25 mg/mL Injection RxNorm: 614003 Milliliter 11/30/2011 No longer Active Immunizations Vaccine Codes Date Status Pneumococcal (Adult) CVX: 133 02/26/2016 completed PPD Unknown 12/25/2014 completed PPD Unknown 09/27/2013 completed Pneumococcal CVX: 33 06/07/2012 completed Pneumococcal (Adult) CVX: 33 06/07/2012 completed Assessments Condition Codes Effective Dates Cough ICD-10: R05 ICD-9: 786.2 04/27/2018 Chronic maxillary sinusitis ICD-10: J32.0 ICD-9: 473.0 04/27/2018 Type 2 diabetes mellitus with hyperglycemia ICD-10: E11.65 ICD-9: 250.00 04/27/2018 Generalized anxiety disorder ICD-10: F41.1 ICD-9: 300.02 04/10/2018 Essential (primary) hypertension ICD-10: I10 ICD-9: 401.1 04/10/2018 Weakness ICD-10: R53.1 ICD-9: 780.79 04/10/2018 [...] STREP PNEUMONIAE-FLU ICD-10: Z23 ICD-9: V06.6 02/26/2016 Headache ICD-10: R51 ICD-9: 784.0 12/17/2015 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 ICD-9: 255.41 [...] Visit Reason For Visit Effective Dates Notes diabetes mellitus 04/27/2018 diabetes mellitus 04/10/2018 gait [...] 26.2 pg 02/20/2018 Cbc With Differential Ord2 [place]% 5.7 % 02/20/2018 Cbc With Differential Ord2 [...] 1.61 K/ul 02/20/2018 Cbc With Differential Ord2 [place] ABS# 0.5 K/ul 02/20/2018 Cbc With Differential Ord2 Eos ABS# 0.1 K/ul 02/20/2018 Cbc With Differential Ord2 Baso ABS# 0.0 K/ul 02/20/2018 Comp Metabolic Cpe043 NA 134 mEq/L 02/20/2018 Comp Metabolic Ens171 K 3.9 mEq/L 02/20/2018 Comp Metabolic Wjt387 CL 90 mEq/L 02/20/2018 Comp Metabolic Ida070 CO2 32.0 mEq/L 02/20/2018 Comp Metabolic Jbc773 ANION GAP 16 02/20/2018 Comp Metabolic Bhc037 GLUCOSE 287 mg/dL 02/20/2018 Comp Metabolic Kqr454 Creat 0.8 mg/dL 02/20/2018 Comp Metabolic Ydj368 eGFR 72 ml/min/1.73m2 02/20/2018 Comp Metabolic Ugr990 BUN 13 mg/dL 02/20/2018 Comp Metabolic Lwx830 B/C Ratio 15.5 Ratio 02/20/2018 Comp Metabolic Hgn822 CALCIUM 9.0 mg/dL 02/20/2018 Comp Metabolic Qky745 ALK PHOS 120 U/L 02/20/2018 Comp Metabolic Joz048 AST(SGOT) 21 U/L 02/20/2018 Comp Metabolic Qih294 ALT(SGPT) 17 U/L 02/20/2018 Comp Metabolic Fsp665 BILI T 0.4 mg/dL 02/20/2018 Comp Metabolic Srq023 ALBUMIN 3.8 g/dL 02/20/2018 Comp Metabolic Exi856 TPRO 6.9 g/dL 02/20/2018 Comp Metabolic Ywm415 GLOB 3.1 g/dL 02/20/2018 Comp Metabolic Cly387 A/G Ratio 1.3 Ratio 02/20/2018 Comp Metabolic Zvf237 Osmo 279 mOsmo 02/20/2018 Vitamin D 25 Oh Wvi1646 VITAMIN D, 25 HYDROXY 26.48 ng/mL Digoxin Ord9 DIGOXIN 0.7 NG/ML 02/20/2018 Culture Urine [id number] URINE CULTURE SEE NOTES 12/01/2017 Urine Culture Ucult Complete >100,000 col/ml aerobic growth sent to ref lab 11/29/2017 Comp Metabolic Lqw386 NA 135 mEq/L 08/21/2017 Comp Metabolic Plg615 K 4.6 mEq/L 08/21/2017 Comp Metabolic Znp462 CL 92 mEq/L 08/21/2017 Comp Metabolic Qux502 CO2 32.0 mEq/L 08/21/2017 Comp Metabolic Fvt642 ANION GAP 16 08/21/2017 Comp Metabolic Auz531 GLUCOSE 298 mg/dL 08/21/2017 Comp Metabolic Jas443 Creat 1.1 mg/dL 08/21/2017 Comp Metabolic Oyh809 eGFR 54 ml/min/1.73m2 08/21/2017 Comp Metabolic Rog334 BUN 22 mg/dL 08/21/2017 Comp Metabolic Tzu350 B/C Ratio 20.6 Ratio 08/21/2017 Comp Metabolic Lbu287 CALCIUM 9.3 mg/dL 08/21/2017 Comp Metabolic Iei834 ALK PHOS 145 U/L 08/21/2017 Comp Metabolic Whh837 AST(SGOT) 31 U/L 08/21/2017 Comp Metabolic Hck062 ALT(SGPT) 19 U/L 08/21/2017 Comp Metabolic Dxi904 BILI T 0.3 mg/dL 08/21/2017 Comp Metabolic Zmb533 ALBUMIN 3.8 g/dL 08/21/2017 Comp Metabolic Vfn056 TPRO 7.1 g/dL 08/21/2017 Comp Metabolic Fpj636 GLOB 3.3 g/dL 08/21/2017 Comp Metabolic Bqa962 A/G Ratio 1.2 Ratio 08/21/2017 Comp Metabolic Zbn589 Osmo 285 mOsmo 08/21/2017 Cbc With Differential [...] 88.1 fl 08/18/2017 Cbc With Differential Ord2 [place]% 6.9 % 08/18/2017 Cbc With Differential Ord2 [...] 2.05 K/ul 08/18/2017 Cbc With Differential Ord2 [place] ABS# 0.7 K/ul 08/18/2017 Cbc With Differential Ord2 Eos ABS# 0.3 K/ul 08/18/2017 Cbc With Differential Ord2 Baso ABS# 0.0 K/ul 08/18/2017 %Hba1C Znx792 % HbA1c 33366-8 11.5 % 06/13/2017 %Hba1C Ifa606 Gluc Ave 283 mg/dL 06/13/2017 Cbc With [...] 20.0 % 03/27/2017 Cbc With Differential Ord2 [place]% 7.2 % 03/27/2017 Cbc With Differential Ord2 [...] 2.11 K/ul 03/27/2017 Cbc With Differential Ord2 [place] ABS# 0.8 K/ul 03/27/2017 Cbc With Differential Ord2 Eos ABS# 0.2 K/ul 03/27/2017 Cbc With Differential Ord2 Baso ABS# 0.0 K/ul 03/27/2017 Digoxin Ord9 DIGOXIN 0.5 NG/ML 03/27/2017 Comp Metabolic Yuc399 NA 136 mEq/L 03/27/2017 Comp Metabolic Xyd949 K 4.1 mEq/L 03/27/2017 Comp Metabolic Sgs781 CL 90 mEq/L 03/27/2017 Comp Metabolic Rwv024 CO2 34.0 mEq/L 03/27/2017 Comp Metabolic Ltz846 ANION GAP 16 03/27/2017 Comp Metabolic Qmt599 GLUCOSE 325 mg/dL 03/27/2017 Comp Metabolic Rtj222 Creat 1.0 mg/dL 03/27/2017 Comp Metabolic Uyy013 eGFR 62 ml/min/1.73m2 03/27/2017 Comp Metabolic Quy547 BUN 15 mg/dL 03/27/2017 Comp Metabolic Bqn786 B/C Ratio 15.8 Ratio 03/27/2017 Comp Metabolic Xzb490 CALCIUM 9.5 mg/dL 03/27/2017 Comp Metabolic Snv921 ALK PHOS 159 U/L 03/27/2017 Comp Metabolic Kno013 AST(SGOT) 57 U/L 03/27/2017 Comp Metabolic Lmz332 ALT(SGPT) 32 U/L 03/27/2017 Comp Metabolic Izv190 BILI T 0.4 mg/dL 03/27/2017 Comp Metabolic Rjv355 ALBUMIN 4.3 g/dL 03/27/2017 Comp Metabolic Rlr563 TPRO 7.3 g/dL 03/27/2017 Comp Metabolic Vay026 GLOB 3.0 g/dL 03/27/2017 Comp Metabolic Yfy203 A/G Ratio 1.4 Ratio 03/27/2017 Comp Metabolic Rpv690 Osmo 285 mOsmo 03/27/2017 Magnesium Ord90 Mag 2.4 mg/dL 02/27/2017 Comp Metabolic Mas537 NA 138 mEq/L 02/27/2017 Comp Metabolic Lxj008 K 4.2 mEq/L 02/27/2017 Comp Metabolic Nyj404 CL 91 mEq/L 02/27/2017 Comp Metabolic Jbr030 CO2 36.0 mEq/L 02/27/2017 Comp Metabolic Vko167 ANION GAP 15 02/27/2017 Comp Metabolic Xib391 GLUCOSE 297 mg/dL 02/27/2017 Comp Metabolic Nmt872 Creat 0.9 mg/dL 02/27/2017 Comp Metabolic Mgd375 eGFR 71 ml/min/1.73m2 02/27/2017 Comp Metabolic Fta514 BUN 12 mg/dL 02/27/2017 Comp Metabolic Tpb333 B/C Ratio 14.1 Ratio 02/27/2017 Comp Metabolic Goh405 CALCIUM 9.0 mg/dL 02/27/2017 Comp Metabolic Zdq499 ALK PHOS 146 U/L 02/27/2017 Comp Metabolic Prk518 AST(SGOT) 28 U/L 02/27/2017 Comp Metabolic Ypy241 ALT(SGPT) 12 U/L 02/27/2017 Comp Metabolic Anb889 BILI T 0.3 mg/dL 02/27/2017 Comp Metabolic Qaa642 ALBUMIN 3.8 g/dL 02/27/2017 Comp Metabolic Kah621 TPRO 6.6 g/dL 02/27/2017 Comp Metabolic Ebu172 GLOB 2.8 g/dL 02/27/2017 Comp Metabolic Qpx293 A/G Ratio 1.3 Ratio 02/27/2017 Comp Metabolic Veb280 Osmo 286 mOsmo 02/27/2017 Digoxin Ord9 DIGOXIN <0.2 NG/ML 02/14/2017 Comp Metabolic Plp323 NA 138 mEq/L 02/14/2017 Comp Metabolic Xuq048 K 3.5 mEq/L 02/14/2017 Comp Metabolic Ogr736 CL 95 mEq/L 02/14/2017 Comp Metabolic Src486 CO2 29.0 mEq/L 02/14/2017 Comp Metabolic Stc574 ANION GAP 18 02/14/2017 Comp Metabolic Nuf540 GLUCOSE 254 mg/dL 02/14/2017 Comp Metabolic Grx883 Creat 1.0 mg/dL 02/14/2017 Comp Metabolic Hse887 eGFR 62 ml/min/1.73m2 02/14/2017 Comp Metabolic Mre806 BUN 14 mg/dL 02/14/2017 Comp Metabolic Osl715 B/C Ratio 14.6 Ratio 02/14/2017 Comp Metabolic Kvu952 CALCIUM 8.6 mg/dL 02/14/2017 Comp Metabolic Lym053 ALK PHOS 155 U/L 02/14/2017 Comp Metabolic Qrk444 AST(SGOT) 42 U/L 02/14/2017 Comp Metabolic Ssr815 ALT(SGPT) 28 U/L 02/14/2017 Comp Metabolic Jog006 BILI T 0.3 mg/dL 02/14/2017 Comp Metabolic Cvt259 ALBUMIN 3.6 g/dL 02/14/2017 Comp Metabolic Bgu798 TPRO 6.2 g/dL 02/14/2017 Comp Metabolic Von884 GLOB 2.6 g/dL 02/14/2017 Comp Metabolic Ezz343 A/G Ratio 1.4 Ratio 02/14/2017 Comp Metabolic Bik460 Osmo 285 mOsmo 02/14/2017 Vitamin D 25 Oh Noi2590 VITAMIN D, 25 HYDROXY 8.99 ng/mL Tsh [...] 28.0 pg 01/16/2017 Cbc With Differential Ord2 [place]% 7.3 % 01/16/2017 Cbc With Differential Ord2 [...] 1.42 K/ul 01/16/2017 Cbc With Differential Ord2 [place] ABS# 0.6 K/ul 01/16/2017 Cbc With Differential Ord2 Eos ABS# 0.1 K/ul 01/16/2017 Cbc With Differential Ord2 Baso ABS# 0.0 K/ul 01/16/2017 Sed Rate Ord21 ESR 33 mm/hr 01/16/2017 C-Reactive Protein Qnt Crqnt CRP 3.3 mg/dl 01/16/2017 Free T4 Xtu797 FREE T4 0.81 ng/dL 01/16/2017 %Hba1C Xot827 % HbA1c 52153-3 12.4 % 01/16/2017 %Hba1C Ksu995 Gluc Ave 309 mg/dL 01/16/2017 Comp Metabolic Rcp887 NA 134 mEq/L 01/16/2017 Comp Metabolic Nea366 K 4.0 mEq/L 01/16/2017 Comp Metabolic Kun079 CL 89 mEq/L 01/16/2017 Comp Metabolic Czq151 CO2 30.0 mEq/L 01/16/2017 Comp Metabolic Lqw174 ANION GAP 19 01/16/2017 Comp Metabolic Ccs955 GLUCOSE 496 Result Verified By Repeat Analysis mg/dL 01/16/2017 Comp Metabolic Afx405 Creat 0.8 mg/dL 01/16/2017 Comp Metabolic Smf986 eGFR 73 ml/min/1.73m2 01/16/2017 Comp Metabolic Lco363 BUN 13 mg/dL 01/16/2017 Comp Metabolic Nqy588 B/C Ratio 15.7 Ratio 01/16/2017 Comp Metabolic Ghq083 CALCIUM 8.8 mg/dL 01/16/2017 Comp Metabolic Rks156 ALK PHOS 171 U/L 01/16/2017 Comp Metabolic Zbe770 AST(SGOT) 54 U/L 01/16/2017 Comp Metabolic Pfy516 ALT(SGPT) 32 U/L 01/16/2017 Comp Metabolic Vhl760 BILI T 0.3 mg/dL 01/16/2017 Comp Metabolic Vkd050 ALBUMIN 3.9 g/dL 01/16/2017 Comp Metabolic Nyp794 TPRO 6.5 g/dL 01/16/2017 Comp Metabolic Sel719 GLOB 2.6 g/dL 01/16/2017 Comp Metabolic Avh211 A/G Ratio 1.5 Ratio 01/16/2017 Comp Metabolic Qrr072 Osmo 290 mOsmo 01/16/2017 Comp Metabolic Hzq232 NA 135 mEq/L 09/14/2016 Comp Metabolic Rot096 K 5.2 mEq/L 09/14/2016 Comp Metabolic Tbz336 CL 93 mEq/L 09/14/2016 Comp Metabolic Exw005 CO2 26.0 mEq/L 09/14/2016 Comp Metabolic Cet093 ANION GAP 21 09/14/2016 Comp Metabolic Vdu366 GLUCOSE 326 mg/dL 09/14/2016 Comp Metabolic Oka759 Creat 1.0 mg/dL 09/14/2016 Comp Metabolic Wjm825 eGFR 57 ml/min/1.73m2 09/14/2016 Comp Metabolic Qlu205 BUN 16 mg/dL 09/14/2016 Comp Metabolic Zfy301 B/C Ratio 15.5 Ratio 09/14/2016 Comp Metabolic Sts530 CALCIUM 9.2 mg/dL 09/14/2016 Comp Metabolic Fds857 ALK PHOS 160 U/L 09/14/2016 Comp Metabolic Ctf265 AST(SGOT) 49 U/L 09/14/2016 Comp Metabolic Mfa642 ALT(SGPT) 32 U/L 09/14/2016 Comp Metabolic Swb930 BILI T 0.4 mg/dL 09/14/2016 Comp Metabolic Kmp001 ALBUMIN 4.0 g/dL 09/14/2016 Comp Metabolic Wjo645 TPRO 7.3 g/dL 09/14/2016 Comp Metabolic Ejh957 GLOB 3.3 g/dL 09/14/2016 Comp Metabolic Asn169 A/G Ratio 1.2 Ratio 09/14/2016 Comp Metabolic Bjq376 Osmo 284 mOsmo 09/14/2016 Cbc With Differential [...] 86.9 fl 09/14/2016 Cbc With Differential Ord2 [place]% 6.2 % 09/14/2016 Cbc With Differential Ord2 [...] 2.09 K/ul 09/14/2016 Cbc With Differential Ord2 [place] ABS# 0.7 K/ul 09/14/2016 Cbc With Differential Ord2 Eos ABS# 0.2 K/ul 09/14/2016 Cbc With Differential Ord2 Baso ABS# 0.3 K/ul 09/14/2016 %Hba1C Jje702 % HbA1c 10208-4 10.7 % 09/14/2016 %Hba1C Zso070 Gluc Ave 260 mg/dL 09/14/2016 Manual Differential Ord52 D-Neutr 62 % 09/14/2016 Manual Differential Ord52 D-[place] 1 % 09/14/2016 Manual Differential Ord52 D-Lymph 34 % 09/14/2016 Manual Differential Ord52 D-Eos 2 % 09/14/2016 Manual Differential Ord52 D-[place] 1 % 09/14/2016 Comp Metabolic Jyv605 NA 134 mEq/L 08/10/2016 Comp Metabolic Wyh074 K 5.0 mEq/L 08/10/2016 Comp Metabolic Aem881 CL 91 mEq/L 08/10/2016 Comp Metabolic Nhv426 CO2 29.0 mEq/L 08/10/2016 Comp Metabolic Hpa817 ANION GAP 19 08/10/2016 Comp Metabolic Rcu729 GLUCOSE 291 mg/dL 08/10/2016 Comp Metabolic Rkc393 Creat 0.9 mg/dL 08/10/2016 Comp Metabolic Lum707 eGFR 68 ml/min/1.73m2 08/10/2016 Comp Metabolic Boi536 BUN 20 mg/dL 08/10/2016 Comp Metabolic Jxh561 B/C Ratio 22.7 Ratio 08/10/2016 Comp Metabolic Tyw918 CALCIUM 9.7 mg/dL 08/10/2016 Comp Metabolic Oxh562 ALK PHOS 144 U/L 08/10/2016 Comp Metabolic Tah003 AST(SGOT) 62 U/L 08/10/2016 Comp Metabolic Srs166 ALT(SGPT) 37 U/L 08/10/2016 Comp Metabolic Ols530 BILI T 0.3 mg/dL 08/10/2016 Comp Metabolic Ezd997 ALBUMIN 4.3 g/dL 08/10/2016 Comp Metabolic Xta058 TPRO 7.3 g/dL 08/10/2016 Comp Metabolic Fpt041 GLOB 3.0 g/dL 08/10/2016 Comp Metabolic Cpc233 A/G Ratio 1.5 Ratio 08/10/2016 Comp Metabolic Ivd647 Osmo 282 mOsmo 08/10/2016 Free T4 Xet951 FREE T4 0.89 ng/dL 08/09/2016 Tsh Ord6 [...] 27.1 pg 08/09/2016 Cbc With Differential Ord2 [place]% 5.4 % 08/09/2016 Cbc With Differential Ord2 [...] 2.46 K/ul 08/09/2016 Cbc With Differential Ord2 [place] ABS# 0.8 K/ul 08/09/2016 Cbc With Differential [...] 26.3 % 04/20/2016 Cbc With Differential Ord2 [place]% 6.3 % 04/20/2016 Cbc With Differential Ord2 [...] 2.63 K/ul 04/20/2016 Cbc With Differential Ord2 [place] ABS# 0.6 K/ul 04/20/2016 Cbc With Differential Ord2 Eos ABS# 0.2 K/ul 04/20/2016 Cbc With Differential Ord2 Baso ABS# 0.0 K/ul 04/20/2016 Comp Metabolic Ssb031 NA 133 mEq/L 04/11/2016 Comp Metabolic Gmk370 K 4.1 mEq/L 04/11/2016 Comp Metabolic Alp975 CL 92 mEq/L 04/11/2016 Comp Metabolic Mez252 CO2 30.0 mEq/L 04/11/2016 Comp Metabolic Rdw424 ANION GAP 15 04/11/2016 Comp Metabolic Eud834 GLUCOSE 414 mg/dL 04/11/2016 Comp Metabolic Poc455 Creat 0.9 mg/dL 04/11/2016 Comp Metabolic Kxv740 eGFR 65 ml/min/1.73m2 04/11/2016 Comp Metabolic Snb855 BUN 22 mg/dL 04/11/2016 Comp Metabolic Cxf333 B/C Ratio 23.9 Ratio 04/11/2016 Comp Metabolic Xkm476 CALCIUM 9.2 mg/dL 04/11/2016 Comp Metabolic Xnf574 ALK PHOS 145 U/L 04/11/2016 Comp Metabolic Mli768 AST(SGOT) 22 U/L 04/11/2016 Comp Metabolic Yzj307 ALT(SGPT) 21 U/L 04/11/2016 Comp Metabolic Snh244 BILI T 0.3 mg/dL 04/11/2016 Comp Metabolic Ixv601 ALBUMIN 3.9 g/dL 04/11/2016 Comp Metabolic Jsm868 TPRO 6.8 g/dL 04/11/2016 Comp Metabolic Xfh678 GLOB 3.0 g/dL 04/11/2016 Comp Metabolic Ein362 A/G Ratio 1.3 Ratio 04/11/2016 Comp Metabolic Mus269 Osmo 287 mOsmo 04/11/2016 Cbc With Differential [...] 27.6 pg 04/11/2016 Cbc With Differential Ord2 [place]% 6.9 % 04/11/2016 Cbc With Differential Ord2 [...] 2.09 K/ul 04/11/2016 Cbc With Differential Ord2 [place] ABS# 0.7 K/ul 04/11/2016 Cbc With Differential Ord2 Eos ABS# 0.2 K/ul 04/11/2016 Cbc With Differential Ord2 Baso ABS# 0.0 K/ul 04/11/2016 Comp Metabolic Ohh719 NA 136 mEq/L 02/26/2016 Comp Metabolic Odx320 K 3.9 mEq/L 02/26/2016 Comp Metabolic Lrq133 CL 95 mEq/L 02/26/2016 Comp Metabolic Gva478 CO2 29.0 mEq/L 02/26/2016 Comp Metabolic Lig273 ANION GAP 16 02/26/2016 Comp Metabolic Dfy752 GLUCOSE 277 mg/dL 02/26/2016 Comp Metabolic Zmo989 Creat 0.7 mg/dL 02/26/2016 Comp Metabolic Ixk179 eGFR 88 ml/min/1.73m2 02/26/2016 Comp Metabolic Pws543 BUN 11 mg/dL 02/26/2016 Comp Metabolic Qns803 B/C Ratio 15.5 Ratio 02/26/2016 Comp Metabolic Zmo134 CALCIUM 8.8 mg/dL 02/26/2016 Comp Metabolic Ucn246 ALK PHOS 119 U/L 02/26/2016 Comp Metabolic Ygv129 AST(SGOT) 25 U/L 02/26/2016 Comp Metabolic Tkh576 ALT(SGPT) 20 U/L 02/26/2016 Comp Metabolic Nkm406 BILI T 0.3 mg/dL 02/26/2016 Comp Metabolic Sbm549 ALBUMIN 3.8 g/dL 02/26/2016 Comp Metabolic Pmk021 TPRO 6.6 g/dL 02/26/2016 Comp Metabolic Xgo572 GLOB 2.8 g/dL 02/26/2016 Comp Metabolic Tim169 A/G Ratio 1.3 Ratio 02/26/2016 Comp Metabolic Cha784 Osmo 281 mOsmo 02/26/2016 Cbc With Differential [...] 29.6 pg 02/26/2016 Cbc With Differential Ord2 [place]% 6.4 % 02/26/2016 Cbc With Differential Ord2 [...] 2.78 K/ul 02/26/2016 Cbc With Differential Ord2 [place] ABS# 0.8 K/ul 02/26/2016 Cbc With Differential Ord2 Eos ABS# 0.2 K/ul 02/26/2016 Cbc With Differential Ord2 Baso ABS# 0.1 K/ul 02/26/2016 %Hba1C Yue426 % HbA1c 01910-6 9.6 % 02/26/2016 %Hba1C Ejh066 Gluc Ave 229 mg/dL 02/26/2016 Comp Metabolic Tmk129 NA 138 mEq/L 11/10/2015 Comp Metabolic Kwr961 K 4.5 mEq/L 11/10/2015 Comp Metabolic Rbi138 CL 99 mEq/L 11/10/2015 Comp Metabolic Vfp697 CO2 34.0 mEq/L 11/10/2015 Comp Metabolic Rul578 ANION GAP 10 11/10/2015 Comp Metabolic Pvy637 GLUCOSE 167 mg/dL 11/10/2015 Comp Metabolic Jqu064 Creat 0.8 mg/dL 11/10/2015 Comp Metabolic Mjd789 eGFR 78 ml/min/1.73m2 11/10/2015 Comp Metabolic Rhm027 BUN 22 mg/dL 11/10/2015 Comp Metabolic Osn131 B/C Ratio 27.8 Ratio 11/10/2015 Comp Metabolic Uql142 CALCIUM 8.5 mg/dL 11/10/2015 Comp Metabolic Pax089 ALK PHOS 130 U/L 11/10/2015 Comp Metabolic Vli530 AST(SGOT) 56 U/L 11/10/2015 Comp Metabolic Cas502 ALT(SGPT) 51 U/L 11/10/2015 Comp Metabolic Czh759 BILI T 0.5 mg/dL 11/10/2015 Comp Metabolic Hoi074 ALBUMIN 3.5 g/dL 11/10/2015 Comp Metabolic Xkx978 TPRO 5.8 g/dL 11/10/2015 Comp Metabolic Hdb030 GLOB 2.3 g/dL 11/10/2015 Comp Metabolic Sjw688 A/G Ratio 1.5 Ratio 11/10/2015 Comp Metabolic Fpm207 Osmo 283 mOsmo 11/10/2015 Cbc With Differential [...] 93.1 fl 11/10/2015 Cbc With Differential Ord2 [place]% 7.7 % 11/10/2015 Cbc With Differential Ord2 [...] 1.92 K/ul 11/10/2015 Cbc With Differential Ord2 [place] ABS# 0.9 K/ul 11/10/2015 Cbc With Differential [...] 28.6 pg 08/11/2015 Cbc With Differential Ord2 [place]% 8.1 % 08/11/2015 Cbc With Differential Ord2 [...] 2.93 K/ul 08/11/2015 Cbc With Differential Ord2 [place] ABS# 0.9 K/ul 08/11/2015 Cbc With Differential Ord2 Eos ABS# 0.1 K/ul 08/11/2015 Cbc With Differential Ord2 Baso ABS# 0.0 K/ul 08/11/2015 Cbc With Differential Ord2 New Analyzer Notice Please note new ref ranges starting 06-03-2015 due to implemntation of new five part differential hematolgy analyzer. 08/11/2015 Comp Metabolic Glh304 NA 142 mEq/L 08/11/2015 Comp Metabolic Dsz234 K 3.6 mEq/L 08/11/2015 Comp Metabolic Hus384 CL 98 mEq/L 08/11/2015 Comp Metabolic Tcb620 CO2 33.0 mEq/L 08/11/2015 Comp Metabolic Qwl967 ANION GAP 15 08/11/2015 Comp Metabolic Cbw258 GLUCOSE 100 mg/dL 08/11/2015 Comp Metabolic Kej431 Creat 0.9 mg/dL 08/11/2015 Comp Metabolic Hkh587 eGFR 65 ml/min/1.73m2 08/11/2015 Comp Metabolic Cij423 BUN 15 mg/dL 08/11/2015 Comp Metabolic Dqw674 B/C Ratio 16.3 Ratio 08/11/2015 Comp Metabolic Qba054 CALCIUM 8.8 mg/dL 08/11/2015 Comp Metabolic Bwd217 ALK PHOS 171 U/L 08/11/2015 Comp Metabolic Nns354 AST(SGOT) 76 U/L 08/11/2015 Comp Metabolic Wdk967 ALT(SGPT) 64 U/L 08/11/2015 Comp Metabolic Bwn740 BILI T 0.4 mg/dL 08/11/2015 Comp Metabolic Zko204 ALBUMIN 4.2 g/dL 08/11/2015 Comp Metabolic Wfs840 TPRO 6.7 g/dL 08/11/2015 Comp Metabolic Gnu372 GLOB 2.6 g/dL 08/11/2015 Comp Metabolic Uwh851 A/G Ratio 1.6 Ratio 08/11/2015 Comp Metabolic Sto401 Osmo 284 mOsmo 08/11/2015 %Hba1C Bud003 % HbA1c 70432-3 6.7 % 08/11/2015 %Hba1C Qls143 Gluc Ave 146 mg/dL 08/11/2015 Free T4 Dti219 FREE T4 1.07 ng/dL 08/11/2015 Culture Urine [id number] URINE CULTURE SEE NOTES 07/23/2015 Culture Urine [id number] Continued Results 07/23/2015 Urine Culture Ucult Complete Growth of aerobe sent to ref lab 07/21/2015 Free T4 Ipf960 FREE T4 0.76 ng/dL 04/15/2015 Tsh Ord6 hTSH II 1.99 uIU/mL 04/15/2015 %Hba1C Gih390 % HbA1c 70188-5 6.7 % 04/14/2015 %Hba1C Qic995 Gluc Ave 146 mg/dL 04/14/2015 Comp Metabolic Fdx556 NA 140 mEq/L 04/14/2015 Comp Metabolic Ncq571 K 4.4 mEq/L 04/14/2015 Comp Metabolic Zsz595 CL 99 mEq/L 04/14/2015 Comp Metabolic Mae373 CO2 29.0 mEq/L 04/14/2015 Comp Metabolic Yvb118 ANION GAP 16 04/14/2015 Comp Metabolic Ega136 GLUCOSE 100 mg/dL 04/14/2015 Comp Metabolic Ylr622 Creat 0.7 mg/dL 04/14/2015 Comp Metabolic Hru884 eGFR 91 ml/min/1.73m2 04/14/2015 Comp Metabolic Buf221 BUN 13 mg/dL 04/14/2015 Comp Metabolic Dtt607 B/C Ratio 18.8 Ratio 04/14/2015 Comp Metabolic Bqu657 CALCIUM 9.1 mg/dL 04/14/2015 Comp Metabolic Tio398 ALK PHOS 138 U/L 04/14/2015 Comp Metabolic Qqr887 AST(SGOT) 22 U/L 04/14/2015 Comp Metabolic Yaq960 ALT(SGPT) 22 U/L 04/14/2015 Comp Metabolic Zmn105 BILI T 0.3 mg/dL 04/14/2015 Comp Metabolic Rpe874 ALBUMIN 4.0 g/dL 04/14/2015 Comp Metabolic Zbw560 TPRO 6.5 g/dL 04/14/2015 Comp Metabolic Otu112 GLOB 2.5 g/dL 04/14/2015 Comp Metabolic Nqb650 A/G Ratio 1.6 Ratio 04/14/2015 Comp Metabolic Zwt204 Osmo 280 mOsmo 04/14/2015 Cbc With Differential [...] Ord2 RDW 16.5 % 04/14/2015 CHEM 14 9645136 AST 15 U/L 09/11/2013 CHEM 14 0775811 ALT 25 IU/L 09/11/2013 CHEM 14 3876098 BUN 29 MG/DL 09/11/2013 CHEM 14 5790948 ALBUMIN 3.8 GM/DL 09/11/2013 CHEM 14 2623479 CHLORIDE 99 MMOL/L 09/11/2013 CHEM 14 5212734 BILI TOT 0.2 MG/DL 09/11/2013 CHEM 14 3459553 ALK PHOS 118 U/L 09/11/2013 CHEM 14 4123536 SODIUM 136 MMOL/L 09/11/2013 CHEM 14 0746913 CREATININE 1.26 MG/DL 09/11/2013 CHEM 14 1279589 CALCIUM 9.0 MG/DL 09/11/2013 CHEM 14 8543663 POTASSIUM 5.0 MMOL/L 09/11/2013 CHEM 14 0452989 PROT TOT 6.2 GM/DL 09/11/2013 CHEM 14 5732851 GLUCOSE 254 MG/DL 09/11/2013 CHEM 14 5134018 BICARB 29 MMOL/L 09/11/2013 CHEM 14 7765743 ANION GAP 8 MEQ/L 09/11/2013 GFR CALC 6343099 GFR AA 52.0L ML/MIN 09/11/2013 GFR CALC 3227801 GFR NON-AA 43.0L ML/MIN 09/11/2013 FREE T4 6027427 FREE T4 1.35 NG/DL 08/02/2013 CBC 1371027 WBC 7.5 10e9/L 08/01/2013 CBC 4552329 RBC 3.88 10e12/L 08/01/2013 CBC 8062319 HGB 12.1 g/dL 08/01/2013 CBC 5006294 HCT DET 37.6 % 08/01/2013 CBC 8951457 MCV 96.9 fL 08/01/2013 CBC 0680010 MCH 31.2 pg 08/01/2013 CBC 7014690 MCHC 32.2 g/dL 08/01/2013 CBC 1895097 PLT 289 10e9/L 08/01/2013 CBC 2793326 MPV 9.6 fL 08/01/2013 CBC 7306287 JO[place] % 56.0 % 08/01/2013 CBC 9373119 LY % 31.6 % 08/01/2013 CBC 0058253 MON % 10.0 % 08/01/2013 CBC 1952430 EOS % 1.7 % 08/01/2013 CBC 5085832 BASO % 0.7 % 08/01/2013 CBC 0560093 RDW 15.5 % 08/01/2013 CBC 1871956 ABS JOSEFINA 4.20 10e9/L 08/01/2013 CBC 0411837 ABS LYMPH 2.37 10e9/L 08/01/2013 CBC 2839588 ABS MONO 0.75 10e9/L 08/01/2013 CBC 2990016 ABS EOS 0.13 10e9/L 08/01/2013 CBC 5245141 ABS BASO 0.05 10e9/L 08/01/2013 CBC 2548212 RDW-SD 53.5 fL 08/01/2013 TSH 2459846 TSH 6.497 uIU/ML 08/01/2013 CHEM 14 0103139 AST 53 U/L 08/01/2013 CHEM 14 5381813 ALT 36 IU/L 08/01/2013 CHEM 14 2260238 BUN 16 MG/DL 08/01/2013 CHEM 14 7484305 ALBUMIN 4.2 GM/DL 08/01/2013 CHEM 14 5877786 CHLORIDE 103 MMOL/L 08/01/2013 CHEM 14 5837442 BILI TOT 0.4 MG/DL 08/01/2013 CHEM 14 2158632 ALK PHOS 113 U/L 08/01/2013 CHEM 14 0689922 SODIUM 139 MMOL/L 08/01/2013 CHEM 14 4143883 CREATININE 0.83 MG/DL 08/01/2013 CHEM 14 1027350 CALCIUM 9.5 MG/DL 08/01/2013 CHEM 14 9863894 POTASSIUM 4.2 MMOL/L 08/01/2013 CHEM 14 3179285 PROT TOT 6.4 GM/DL 08/01/2013 CHEM 14 8610694 GLUCOSE 135 MG/DL 08/01/2013 CHEM 14 6165427 BICARB 26 MMOL/L 08/01/2013 CHEM 14 3112352 ANION GAP 10 MEQ/L 08/01/2013 A1C HPLC 5558517 A1C HPLC 87786-7 8.1 % 08/01/2013 GFR CALC 6072186 GFR AA >60 ML/MIN 08/01/2013 GFR CALC 6838098 GFR NON-AA >60 ML/MIN 08/01/2013 CBC 0362219 WBC 10.4 10e9/L 03/21/2013 CBC 8506993 RBC 4.27 10e12/L 03/21/2013 CBC 4377786 HGB 13.1 g/dL 03/21/2013 CBC 2996333 HCT DET 41.2 % 03/21/2013 CBC 5022776 MCV 96.5 fL 03/21/2013 CBC 4794128 MCH 30.7 pg 03/21/2013 CBC 1402947 MCHC 31.8 g/dL 03/21/2013 CBC 1691259 PLT 398 10e9/L 03/21/2013 CBC 5193819 MPV 10.9 fL 03/21/2013 CBC 8347429 [place] % 65.4 % 03/21/2013 CBC 6336997 LY % 25.6 % 03/21/2013 CBC 4344468 MON % 6.7 % 03/21/2013 CBC 3220890 EOS % 1.9 % 03/21/2013 CBC 4759493 BASO % 0.4 % 03/21/2013 CBC 9295608 RDW 14.2 % 03/21/2013 CBC 3482093 ABS JO[place] 6.80 10e9/L 03/21/2013 CBC 8442787 ABS LYMPH 2.66 10e9/L 03/21/2013 CBC 4824815 ABS MONO 0.70 10e9/L 03/21/2013 CBC 5677266 ABS EOS 0.20 10e9/L 03/21/2013 CBC 3297212 ABS BASO 0.04 10e9/L 03/21/2013 CBC 6249998 RDW-SD 48.7 fL 03/21/2013 GFR CALC 0858407 GFR AA 57.0L ML/MIN 03/21/2013 GFR CALC 0669846 GFR NON-AA 47.0L ML/MIN 03/21/2013 CHEM 14 5295746 AST 22 U/L 03/21/2013 CHEM 14 1158763 ALT 22 IU/L 03/21/2013 CHEM 14 5719747 BUN 29 MG/DL 03/21/2013 CHEM 14 9078315 ALBUMIN 4.1 GM/DL 03/21/2013 CHEM 14 0801812 CHLORIDE 99 MMOL/L 03/21/2013 CHEM 14 8148281 BILI TOT 0.3 MG/DL 03/21/2013 CHEM 14 4062481 ALK PHOS 123 U/L 03/21/2013 CHEM 14 7705213 SODIUM 137 MMOL/L 03/21/2013 CHEM 14 7129602 CREATININE 1.16 MG/DL 03/21/2013 CHEM 14 3390129 CALCIUM 9.1 MG/DL 03/21/2013 CHEM 14 3807230 POTASSIUM 4.1 MMOL/L 03/21/2013 CHEM 14 5223970 PROT TOT 6.7 GM/DL 03/21/2013 CHEM 14 0600807 GLUCOSE 209 MG/DL 03/21/2013 CHEM 14 6211264 BICARB 26 MMOL/L 03/21/2013 CHEM 14 9350297 ANION GAP 12 MEQ/L 03/21/2013 A1C HPLC 9725507 A1C HPLC 35483-9 6.6 % 03/21/2013 GFR CALC 8566951 GFR AA >60 ML/MIN 01/17/2013 GFR CALC 0830404 GFR NON-AA 51.0L ML/MIN 01/17/2013 CHEM 14 6008750 AST 18 U/L 01/17/2013 CHEM 14 3281403 ALT 32 IU/L 01/17/2013 CHEM 14 5185655 BUN 22 MG/DL 01/17/2013 CHEM 14 8895364 ALBUMIN 4.1 GM/DL 01/17/2013 CHEM 14 5767351 CHLORIDE 99 MMOL/L 01/17/2013 CHEM 14 4720767 BILI TOT 0.3 MG/DL 01/17/2013 CHEM 14 0320996 ALK PHOS 110 U/L 01/17/2013 CHEM 14 6803446 SODIUM 138 MMOL/L 01/17/2013 CHEM 14 4334310 CREATININE 1.09 MG/DL 01/17/2013 CHEM 14 2499641 CALCIUM 8.8 MG/DL 01/17/2013 CHEM 14 8042712 POTASSIUM 3.5 MMOL/L 01/17/2013 CHEM 14 8101967 PROT TOT 6.1 GM/DL 01/17/2013 CHEM 14 1236178 GLUCOSE 163 MG/DL 01/17/2013 CHEM 14 4005740 BICARB 29 MMOL/L 01/17/2013 CHEM 14 2713101 ANION GAP 10 MEQ/L 01/17/2013 CBC 7648737 WBC 8.0 10e9/L 01/17/2013 CBC 2183454 RBC 3.85 10e12/L 01/17/2013 CBC 7654566 HGB 12.6 g/dL 01/17/2013 CBC 5517468 HCT DET 38.0 % 01/17/2013 CBC 3266078 MCV 98.7 fL 01/17/2013 CBC 2667924 MCH 32.7 pg 01/17/2013 CBC 3085218 MCHC 33.2 g/dL 01/17/2013 CBC 9042132 PLT 325 10e9/L 01/17/2013 CBC 4831177 MPV 10.4 fL 01/17/2013 CBC 3673914 [place] % 64.6 % 01/17/2013 CBC 3738302 LY % 27.0 % 01/17/2013 CBC 3966718 MON % 6.8 % 01/17/2013 CBC 5208972 EOS % 1.4 % 01/17/2013 CBC 6887013 BASO % 0.2 % 01/17/2013 CBC 2766368 RDW 15.5 % 01/17/2013 CBC 1911893 ABS [place] 5.17 10e9/L 01/17/2013 CBC 7491162 ABS LYMPH 2.16 10e9/L 01/17/2013 CBC 7848847 ABS MONO 0.54 10e9/L 01/17/2013 CBC 9730518 ABS EOS 0.11 10e9/L 01/17/2013 CBC 9753555 ABS BASO 0.02 10e9/L 01/17/2013 CBC 2387498 RDW-SD 54.3 fL 01/17/2013 TSH 5249336 TSH 3.683 uIU/ML 12/31/2012 FREE T4 9785956 FREE T4 1.34 NG/DL 12/31/2012 A1C HPLC 2208828 A1C HPLC 23395-5 6.6 % 12/21/2012 CHEM 14 3788108 AST 16 U/L 12/20/2012 CHEM 14 2298604 ALT 36 IU/L 12/20/2012 CHEM 14 9851258 BUN 26 MG/DL 12/20/2012 CHEM 14 8303500 ALBUMIN 4.2 GM/DL 12/20/2012 CHEM 14 7833012 CHLORIDE 103 MMOL/L 12/20/2012 CHEM 14 9909668 BILI TOT 0.4 MG/DL 12/20/2012 CHEM 14 4937854 ALK PHOS 107 U/L 12/20/2012 CHEM 14 6096728 SODIUM 141 MMOL/L 12/20/2012 CHEM 14 0349864 CREATININE 0.73 MG/DL 12/20/2012 CHEM 14 2979535 CALCIUM 9.2 MG/DL 12/20/2012 CHEM 14 5613995 POTASSIUM 4.3 MMOL/L 12/20/2012 CHEM 14 1992343 PROT TOT 6.2 GM/DL 12/20/2012 CHEM 14 3878601 GLUCOSE 135 MG/DL 12/20/2012 CHEM 14 5400215 BICARB 32 MMOL/L 12/20/2012 CHEM 14 5903731 ANION GAP 6 MEQ/L 12/20/2012 GFR CALC 7366461 GFR AA >60 ML/MIN 12/20/2012 GFR CALC 4372380 GFR NON-AA >60 ML/MIN 12/20/2012 CBC 6730965 WBC 8.4 10e9/L 12/20/2012 CBC 8057367 RBC 4.30 10e12/L 12/20/2012 CBC 3112585 HGB 13.9 g/dL 12/20/2012 CBC 2402412 HCT DET 41.8 % 12/20/2012 CBC 7842569 MCV 97.2 fL 12/20/2012 CBC 3058031 MCH 32.3 pg 12/20/2012 CBC 2685969 MCHC 33.3 g/dL 12/20/2012 CBC 6258914 PLT 358 10e9/L 12/20/2012 CBC 8614892 MPV 10.2 fL 12/20/2012 CBC 2017414 JOSEFINA % 63.3 % 12/20/2012 CBC 7749611 LY % 28.9 % 12/20/2012 CBC 4910013 MON % 6.3 % 12/20/2012 CBC 0526218 EOS % 1.1 % 12/20/2012 CBC 9178963 BASO % 0.4 % 12/20/2012 CBC 1630209 RDW 15.3 % 12/20/2012 CBC 1576583 ABS JOSEFINA 5.32 10e9/L 12/20/2012 CBC 7793212 ABS LYMPH 2.43 10e9/L 12/20/2012 CBC 7297377 ABS MONO 0.53 10e9/L 12/20/2012 CBC 7294811 ABS EOS 0.09 10e9/L 12/20/2012 CBC 9788036 ABS BASO 0.03 10e9/L 12/20/2012 CBC 5355433 RDW-SD 51.9 fL 12/20/2012 GFR CALC 8965453 GFR AA >60 ML/MIN 02/01/2012 GFR CALC 6233057 GFR NON-AA >60 ML/MIN 02/01/2012 CBC 4341510 WBC 10.8 10e9/L 02/01/2012 CBC 3620584 RBC 3.86 10e12/L 02/01/2012 CBC 6979580 HGB 11.8 g/dL 02/01/2012 CBC 5046960 HCT DET 36.3 % 02/01/2012 CBC 6637923 MCV 94.0 fL 02/01/2012 CBC 7698579 MCH 30.6 pg 02/01/2012 CBC 9582731 MCHC 32.5 g/dL 02/01/2012 CBC 0689616 PLT 321 10e9/L 02/01/2012 CBC 1200725 MPV 10.3 fL 02/01/2012 CBC 0489437 JOSEFINA % 75.9 % 02/01/2012 CBC 1933239 LY % 16.1 % 02/01/2012 CBC 9770299 MON % 6.8 % 02/01/2012 CBC 6680684 EOS % 1.0 % 02/01/2012 CBC 0738203 BASO % 0.2 % 02/01/2012 CBC 5216059 RDW 14.2 % 02/01/2012 CBC 1196810 ABS JOSEFINA 8.20 10e9/L 02/01/2012 CBC 9418909 ABS LYMPH 1.74 10e9/L 02/01/2012 CBC 5411515 ABS MONO 0.73 10e9/L 02/01/2012 CBC 1729704 ABS EOS 0.11 10e9/L 02/01/2012 CBC 9747660 ABS BASO 0.02 10e9/L 02/01/2012 CBC 7859351 RDW-SD 47.2 fL 02/01/2012 BRAIN PEP 6885795 BRAIN PEP FOOTNOTE pg/mL 02/01/2012 CHEM 14 6254125 AST 26 U/L 02/01/2012 CHEM 14 3616296 ALT 36 IU/L 02/01/2012 CHEM 14 8365915 BUN 29 MG/DL 02/01/2012 CHEM 14 9694351 ALBUMIN 3.7 GM/DL 02/01/2012 CHEM 14 0504887 CHLORIDE 105 MMOL/L 02/01/2012 CHEM 14 6109382 BILI TOT 0.2 MG/DL 02/01/2012 CHEM 14 8414747 ALK PHOS 89 U/L 02/01/2012 CHEM 14 3600669 SODIUM 141 MMOL/L 02/01/2012 CHEM 14 8220349 CREATININE 0.76 MG/DL 02/01/2012 CHEM 14 3654166 CALCIUM 9.0 MG/DL 02/01/2012 CHEM 14 2811341 POTASSIUM 4.8 MMOL/L 02/01/2012 CHEM 14 0690101 PROT TOT 5.5 GM/DL 02/01/2012 CHEM 14 8565145 GLUCOSE 83 MG/DL 02/01/2012 CHEM 14 8302605 BICARB 31 MMOL/L 02/01/2012 CHEM 14 0601828 ANION GAP 5 MEQ/L 02/01/2012 GFR CALC 5778603 GFR AA >60 ML/MIN 11/30/2011 GFR CALC 9940437 GFR NON-AA >60 ML/MIN 11/30/2011 CHEM 14 5829503 AST 14 U/L 11/30/2011 CHEM 14 6490315 ALT 17 IU/L 11/30/2011 CHEM 14 8458735 BUN 12 MG/DL 11/30/2011 CHEM 14 2880072 ALBUMIN 4.3 GM/DL 11/30/2011 CHEM 14 1420966 CHLORIDE 104 MMOL/L 11/30/2011 CHEM 14 3519351 BILI TOT 0.3 MG/DL 11/30/2011 CHEM 14 5238115 ALK PHOS 83 U/L 11/30/2011 CHEM 14 5454784 SODIUM 143 MMOL/L 11/30/2011 CHEM 14 3741627 CREATININE 0.71 MG/DL 11/30/2011 CHEM 14 3455818 CALCIUM 9.7 MG/DL 11/30/2011 CHEM 14 4633327 POTASSIUM 4.4 MMOL/L 11/30/2011 CHEM 14 8359590 PROT TOT 6.3 GM/DL 11/30/2011 CHEM 14 4657229 GLUCOSE 107 MG/DL 11/30/2011 CHEM 14 1960366 BICARB 27 MMOL/L 11/30/2011 CHEM 14 9087746 ANION GAP 12 MEQ/L 11/30/2011 CBC 2987599 WBC 8.7 10e9/L 11/30/2011 CBC 7211540 RBC 4.40 10e12/L 11/30/2011 CBC 1468517 HGB 13.6 g/dL 11/30/2011 CBC 0930178 HCT DET 41.0 % 11/30/2011 CBC 5459148 MCV 93.2 fL 11/30/2011 CBC 1012974 MCH 30.9 pg 11/30/2011 CBC 5442291 MCHC 33.2 g/dL 11/30/2011 CBC 8992417 PLT 328 10e9/L 11/30/2011 CBC 3383626 MPV 10.7 fL 11/30/2011 CBC 9368066 JOSEFINA % 68.4 % 11/30/2011 CBC 3998751 LY % 22.4 % 11/30/2011 CBC 1630887 MON % 7.9 % 11/30/2011 CBC 1932422 EOS % 1.1 % 11/30/2011 CBC 0288750 BASO % 0.2 % 11/30/2011 CBC 6665571 RDW 13.5 % 11/30/2011 CBC 1139399 ABS JOSEFINA 5.95 10e9/L 11/30/2011 CBC 3317275 ABS LYMPH 1.95 10e9/L 11/30/2011 CBC 3570520 ABS MONO 0.69 10e9/L 11/30/2011 CBC 5392397 ABS EOS 0.10 10e9/L 11/30/2011 CBC 6547657 ABS BASO 0.02 10e9/L 11/30/2011 CBC 8967017 RDW-SD 45.0 fL 11/30/2011 URINALYSIS NONAUTO W/O SCOPE 06784 Specific [place] 1.030 DateTime(Free Text in Aprima) URINALYSIS NONAUTO W/O SCOPE 37240 PH 5 DateTime(Free Text in Aprima) URINALYSIS NONAUTO W/O SCOPE 23560 GLUCOSE neg DateTime( Free Text in Aprima) URINALYSIS NONAUTO W/O SCOPE 46853 Protein neg DateTime( Free Text in Aprima) URINALYSIS NONAUTO W/O SCOPE 36358 Blood neg DateTime(Free Text in Aprima) URINALYSIS NONAUTO W/O SCOPE 72273 Bilirubin neg DateTime(Free Text in Aprima) URINALYSIS NONAUTO W/O SCOPE 51433 Ketones neg DateTime( Free Text in Aprima) URINALYSIS NONAUTO W/O SCOPE 20769 Urobilinogen neg DateTime(Free Text in Aprima) URINALYSIS NONAUTO W/O SCOPE 38276 Nitrite neg DateTime( Free Text in Aprima) URINALYSIS NONAUTO W/O SCOPE 07907 Leukocytes neg DateTime(Free Text in Aprima) UA 45391 Specific [place] 1.010 DateTime(Free Text in Aprima ) UA 42258 PH 5 DateTime(Free Text in Aprima) UA 30653 GLUCOSE N DateTime(Free Text in Aprima) UA 05624 Protein N DateTime(Free Text in Aprima) UA 12676 Blood TRACE DateTime(Free Text in Aprima) UA 65484 Bilirubin N DateTime(Free Text in Aprima) UA 43126 Ketones N DateTime(Free Text in Aprima) UA 87397 Urobilinogen N DateTime(Free Text in Aprima) UA 42938 Nitrite N DateTime(Free Text in Aprima) UA 06727 Leukocytes N DateTime(Free Text in Aprima) URINALYSIS NONAUTO W/O SCOPE 28734 Specific [place] 1.010 DateTime(Free Text in Aprima) URINALYSIS NONAUTO W/O SCOPE 48334 PH 7.5 DateTime(Free Text in Aprima) URINALYSIS NONAUTO W/O SCOPE 39058 GLUCOSE DateTime( Free Text in Aprima) URINALYSIS NONAUTO W/O SCOPE 05687 Protein trace DateTime(Free Text in Aprima) URINALYSIS NONAUTO W/O SCOPE 12583 Blood DateTime(Free Text in Aprima) URINALYSIS NONAUTO W/O SCOPE 41825 Bilirubin DateTime( Free Text in Aprima) URINALYSIS NONAUTO W/O SCOPE 87738 Ketones DateTime( Free Text in Aprima) URINALYSIS NONAUTO W/O SCOPE 60198 Urobilinogen DateTime (Free Text in Aprima) URINALYSIS NONAUTO W/O SCOPE 49816 Nitrite DateTime( Free Text in Aprima) URINALYSIS NONAUTO W/O SCOPE 17185 Leukocytes DateTime( Free Text in Aprima) URINALYSIS NONAUTO W/O SCOPE 18747 Specific [place] 1.010 DateTime(Free Text in Aprima) URINALYSIS NONAUTO W/O SCOPE 51299 PH 6 DateTime(Free Text in Aprima) URINALYSIS NONAUTO W/O SCOPE 23055 GLUCOSE DateTime( Free Text in Aprima) URINALYSIS NONAUTO W/O SCOPE 77530 Protein DateTime( Free Text in Aprima) URINALYSIS NONAUTO W/O SCOPE 54963 Blood DateTime(Free Text in Aprima) URINALYSIS NONAUTO W/O SCOPE 99554 Bilirubin DateTime( Free Text in Aprima) URINALYSIS NONAUTO W/O SCOPE 81126 Ketones DateTime( Free Text in Aprima) URINALYSIS NONAUTO W/O SCOPE 25502 Urobilinogen DateTime (Free Text in Aprima) URINALYSIS NONAUTO W/O SCOPE 82514 Nitrite DateTime( Free Text in Aprima) URINALYSIS NONAUTO W/O SCOPE 58417 Leukocytes DateTime( Free Text in Aprima) UA 23105 Specific [place] 1.020 DateTime(Free Text in Aprima ) UA 77994 PH 6 DateTime(Free Text in Aprima) UA 43090 GLUCOSE neg DateTime(Free Text in Aprima) UA 31134 Protein neg DateTime(Free Text in Aprima) UA 81177 Blood neg DateTime(Free Text in Aprima) UA 84709 Bilirubin neg DateTime(Free Text in Aprima) UA 99545 Ketones neg DateTime(Free Text in Aprima) UA 76325 Urobilinogen neg DateTime(Free Text in Aprima) UA 26650 Nitrite neg DateTime(Free Text in Aprima) UA 16465 Leukocytes neg DateTime(Free Text in Aprima) BMI 72638-5 39.7 DateTime(Free Text in Aprima) Blood Pressure 1 8480-6 DateTime(Free Text in Aprima) Weight (kg) DateTime(Free Text in Aprima) Height (cm) DateTime(Free Text in Aprima) Heart Rate 1 DateTime(Free Text in Aprima) SpO2 DateTime(Free Text in Aprima) Review of Systems System Result Effective Dates Constitutional recent illness 04/27/2018 Constitutional No anorexia [...] lips 04/27/2018 None Full Exam - General 1995 Ears/Nose/Throat lips/teeth/gingiva Teeth: partially edentulous 04/27/2018 None [...] exam 03/03/2014 None Full Exam - General 1995 Ears/Nose/Throat otoscopic exam External auditory canal: partial cerumen occlusion 03/03/2014 None Full Exam - General 1995 Ears/Nose/Throat otoscopic exam Tympanic membrane: a normal exam 03/03/2014 None Full Exam - General 1995 [...] clear 01/27/2014 None Full Exam - General 1995 Respiratory auscultation Overall: breath sounds clear bilaterally 01/27/2014 None Full Exam - General 1995 Respiratory respiratory effort/rhythm Overall: no retractions 01/27/2014 None Full Exam - General 1995 Respiratory respiratory effort/rhythm Overall: normal rate 01/27/2014 None Full Exam - General 1995 Cardiovascular extremities Edema present: pitting 01/27/2014 None Full Exam - General 1994 Cardiovascular extremities Edema present: severity 1+ - 4 +: 2+ 01/27/2014 None Full Exam - General 1995 Cardiovascular extremities Edema present: to leg 01/27/2014 right >left Full Exam - General 1995 Cardiovascular auscultation [...] 1994 Ears/Nose/Throat oral cavity/pharynx/larynx Overall: no masses 02/12/2013 [...] age 0801/17/2013 None Full Exam - General 1995 Eyes conjunctiva /eyelids Overall: conjunctiva clear 01/17/2013 [...] 12/31/2012 None Full Exam - General 1995 Lymphatic [...] _ 08/23/2012 None Full Exam - General 1995 Cardiovascular extremities Edema present: bilateral 08/23/2012 None [...] visualized 08/13/2012 None Full Exam - General 1995 Ears/Nose/Throat oral cavity/pharynx/larynx Overall: oral mucosa clear 08/13/2012 None Full Exam - General 1995 Respiratory auscultation Overall: breath sounds clear bilaterally 08/13/2012 None Full Exam - General 1995 Respiratory respiratory effort/rhythm Overall: no retractions 08/13/2012 None Full Exam - General 1995 Respiratory respiratory effort/rhythm Overall: normal rate 08/13/2012 None Full Exam - General 1995 Cardiovascular extremities Edema present: pitting 08/13/2012 None Full Exam - General 1995 Cardiovascular extremities Edema present: severity 1+ - 4 +: _ 08/13/2012 None Full Exam - General 1995 Cardiovascular extremities Edema present: bilateral 08/13/2012 None Full Exam - General 1995 Cardiovascular extremities Edema present: to knees 08/13/2012 [...] 05/28/2012 None Full Exam - General 1995 Eyes [...] size 08/15/2011 None Full Exam - General 1995 Neck inspection of neck Overall: normal appearance 08/15/2011 None Full Exam - General 1995 Neck inspection of neck Overall: no masses 08/15/2011 None Full Exam - General 1994 Neck inspection of neck Overall: absence of swelling 08/15/2011 None Full Exam - General 1995 Respiratory auscultation Overall: breath sounds clear bilaterally 08/15/2011 None Full Exam - General 1995 Respiratory respiratory effort/rhythm Overall: no retractions 08/15/2011 None Full Exam - General 1994 Respiratory respiratory effort/rhythm Overall: normal rate 08/15/2011 None Full Exam - General 1995 Cardiovascular auscultation of heart Overall: regular rate 08/15/2011 None Full Exam - General 1995 Cardiovascular [...] accomodation 08/01/2011 None Full Exam - General 1995 [...] Date GLUC MONITOR CONT PHYS I&R CPT-4: 33160 04/27/2018 URINALYSIS NONAUTO W/O SCOPE CPT-4: 05159 04/10/2018 GLUCOSE MONITORING CONT CPT-4: 47015 04/10/2018 OCCULT BLOOD FECES CPT -4: 26837 02/22/2018 URINALYSIS NONAUTO W/O SCOPE CPT-4: 13362 02/20/2018 URINALYSIS NONAUTO W/O SCOPE CPT-4: 73746 12/14/2017 URINALYSIS NONAUTO W/O SCOPE CPT-4: 56147 11/27/2017 PPPS, SUBSEQ VISIT CPT -4: G0439 10/27/2017 GLUCOSE MONITORING CONT CPT-4: 64211 09/27/2017 URINALYSIS NONAUTO W/O SCOPE CPT-4: 18173 06/30/2017 URINALYSIS NONAUTO W/O SCOPE CPT-4: 23387 11/25/2016 URINALYSIS NONAUTO W/O SCOPE CPT-4: 70845 10/21/2016 URINALYSIS NONAUTO W/O SCOPE CPT-4: 78266 06/24/2016 URINALYSIS NONAUTO W/O SCOPE CPT-4: 88079 04/11/2016 ADMIN PNEUMOCOCCAL VACCINE SNOMED CT: [id number] CPT-4: G0009 02/26/2016 PNEUMOCOCCAL VACC 13 ANURADHA IM Formatting Model/CDA Sections, Assigned to/Jada Velazquez SNOMED CT: [id number] CPT-4: 89099Ejgpgar 02/26/2016 URINALYSIS NONAUTO W/O SCOPE CPT-4: 02222 02/10/2016 URINALYSIS NONAUTO W/O SCOPE CPT-4: 91370 11/27/2015 URINALYSIS NONAUTO W/O SCOPE CPT-4: 42627 11/02/2015 INITIAL PREVENTIVE EXAM CPT-4: G0402 09/29/2015 URINALYSIS NONAUTO W/O SCOPE CPT-4: 81399 07/20/2015 TRIAMCINOLONE ACET INJ NOS CPT-4: J3301 06/26/2015 URINALYSIS NONAUTO W/O SCOPE CPT-4: 62280 11/05/2014 URINALYSIS NONAUTO W/O SCOPE CPT-4: 29761 04/21/2014 CULTURE AEROBIC IDENTIFY CPT-4: 05320 12/12/2013 URINALYSIS NONAUTO W/O SCOPE CPT-4: 09789 11/18/2013 ROUTINE VENIPUNCTURE CPT-4: 42070 09/10/2013 ROUTINE VENIPUNCTURE CPT-4: 70018 08/01/2013 URINALYSIS NONAUTO W/O SCOPE CPT-4: 75714 06/28/2013 TRIAMCINOLONE ACET INJ NOS CPT-4: J3301 05/07/2013 DRAIN/INJECT JOINT/BURSA CPT-4: 88576 05/07/2013 ROUTINE VENIPUNCTURE CPT-4: 76012 03/21/2013 ROUTINE VENIPUNCTURE CPT-4: 97902 01/17/2013 URINALYSIS NONAUTO W/O SCOPE CPT-4: 86333 01/01/2013 ROUTINE VENIPUNCTURE CPT-4: 99354 12/31/2012 ROUTINE VENIPUNCTURE CPT-4: 91327 12/20/2012 URINALYSIS NONAUTO W/O SCOPE CPT-4: 53580 11/05/2012 DRAIN/INJECT JOINT/BURSA CPT-4: 60969 09/21/2012 TRIAMCINOLONE ACET INJ NOS CPT-4: J3301 09/21/2012 URINALYSIS NONAUTO W/O SCOPE CPT-4: 60252 07/19/2012 TRIAMCINOLONE ACET INJ NOS CPT-4: J3301 07/06/2012 Pneumococcal Polysaccharide Vaccine, 23-Valent, Ad CPT-4: 73346 06/07/2012 IMMUNIZATION ADMIN CPT -4: 94507 06/07/2012 TRIAMCINOLONE ACET INJ NOS CPT-4: J3301 05/02/2012 ROUTINE VENIPUNCTURE CPT-4: 63793 02/01/2012 URINALYSIS NONAUTO W/O SCOPE CPT-4: 65583 02/01/2012 TRIAMCINOLONE ACET INJ NOS CPT-4: J3301 12/14/2011 INJ TRIGGER POINT 1/2 MUSCL CPT-4: 53516 12/14/2011 PROMETHAZINE HCL INJECTION CPT-4: J2550 11/30/2011 ROUTINE VENIPUNCTURE CPT-4: 94765 11/30/2011 TRIAMCINOLONE ACET INJ NOS CPT-4: J3301 08/01/2011 DRAIN/INJECT JOINT/BURSA CPT-4: 85726 08/01/2011 THER/PROPH/DIAG INJ SC/IM CPT-4: 62408 04/18/2011 TRIAMCINOLONE ACET INJ NOS CPT-4: J3301 04/18/2011 Vital Signs Date Vital 04/27/2018 Blood Pressure 1: 122/54 Code : 8480-6 BMI: 39.7 Code : 16089-1 Heart Rate 1 : 84 bpm Height: 5'2" SpO2: 92% 04/10/2018 Blood Pressure 1: 120/68 Code : 8480-6 BMI: 39.7 Code : 17935-2 Heart Rate 1 : 87 bpm Height: 5'2" SpO2: 99% Weight: 217 lbs 03/12/2018 Blood Pressure 1: 140/70 Code : 8480-6 BMI: 40.2 Code : 85556-3 Heart Rate 1 : 78 bpm Height: 5'2" SpO2: 98% Weight: 220 lbs 02/20/2018 Blood Pressure 1: 140/70 Code : 8480-6 BMI: 40.2 Code : 84618-5 Heart Rate 1 : 96 bpm Height: 5'2" SpO2: 93% Weight: 220 lbs 11/27/2017 Blood Pressure 1: 158/78 Code : 8480-6 BMI: 40.8 Code : 29682-5 Heart Rate 1 : 100 bpm Height: 5'2" SpO2: 95% Weight: 223 lbs 10/27/2017 Blood Pressure 1: 146/70 Code : 8480-6 BMI: 41.3 Code : 74499-7 Heart Rate 1 : 82 bpm Height: 5'2" SpO2: 99% Waist Measure (cm): 119 cm Weight: 226 lbs 09/15/2017 Blood Pressure 1: 136/66 Code : 8480-6 BMI: 41.5 Code : 45063-4 Heart Rate 1 : 94 bpm Height: 5'2" SpO2: 96% Weight: 227 lbs 08/18/2017 Blood Pressure 1: 120/68 Code : 8480-6 BMI: 41.5 Code : 58573-8 Heart Rate 1 : 87 bpm Height: 5'2" SpO2: 94% Weight: 227 lbs 08/03/2017 Blood Pressure 1: 132/72 Code : 8480-6 BMI: 41.5 Code : 06796-7 Heart Rate 1 : 93 bpm Height: 5'2" SpO2: 95% Weight: 227 lbs 07/27/2017 Blood Pressure 1: 128/84 Code : 8480-6 BMI: 41.5 Code : 31303-9 Heart Rate 1 : 91 bpm Height: 5'2" SpO2: 98% Weight: 227 lbs 06/13/2017 Blood Pressure 1: 136/84 Code : 8480-6 BMI: 42.6 Code : 57265-0 Heart Rate 1 : 91 bpm Height: 5'2" SpO2: 94% Weight: 233 lbs 04/21/2017 Blood Pressure 1: 142/84 Code : 8480-6 BMI: 42.8 Code : 27083-5 Heart Rate 1 : 89 bpm Height: 5'2" SpO2: 94% Weight: 234 lbs 04/18/2017 Blood Pressure 1: 140/86 Code : 8480-6 BMI: 42.8 Code : 76380-9 Heart Rate 1 : 89 bpm Height: 5'2" SpO2: 97% Weight: 234 lbs 03/27/2017 Blood Pressure 1: 148/76 Code : 8480-6 BMI: 42.6 Code : 69547-7 Heart Rate 1 : 92 bpm Height: [...] Code : 8480-6 BMI: 44.3 Code : 31749-8 Heart Rate 1 : 90 bpm Height: 5'2" SpO2: 96% Weight: 242 lbs 01/30/2017 Blood Pressure 1: 132/72 Code : 8480-6 Heart Rate 1: 97 bpm Height: 5'2" SpO2: 96% Weight: 01/16/2017 Blood Pressure 1: 138/76 Code : 8480-6 BMI: 43.3 Code : 80536-4 Heart Rate 1 : 84 bpm Height: 5'2" SpO2: 99% Weight: 237 lbs 12/13/2016 Blood Pressure 1: 144/78 Code : 8480-6 Heart Rate 1: 96 bpm Height: 5'2" SpO2: 98% Temperature: 36.6 (C) / 97.9 (F) Weight: 11/11/2016 Blood Pressure 1: 144/80 Code : 8480-6 BMI: 43.0 Code : 47737-9 Heart Rate 1 : 89 bpm Height: 5'2" SpO2: 94% Temperature: 36.1 (C) / 97.0 (F) Weight: 235 lbs 10/28/2016 Blood Pressure 1: 156/82 Code : 8480-6 BMI: 43.9 Code : 57243-8 Heart Rate 1 : 78 bpm Height: [...] Code : 8480-6 BMI: 42.4 Code : 06358-5 Heart Rate 1 : 95 bpm Height: 5'2" SpO2: 98% Weight: 232 lbs 08/09/2016 Blood Pressure 1: 138/80 Code : 8480-6 BMI: 41.0 Code : 23436-5 Heart Rate 1 : 98 bpm Height: 5'2" SpO2: 97% Weight: 224 lbs 07/26/2016 Blood Pressure 1: 148/82 Code : 8480-6 BMI: 42.4 Code : 57098-5 Heart Rate 1 : 89 bpm Height: 5'2" SpO2: 97% Weight: 232 lbs 05/24/2016 Blood Pressure 1: 146/72 Code : 8480-6 BMI: 42.4 Code : 96483-2 Heart Rate 1 : 89 bpm Height: 5'2" SpO2: 99% Weight: 232 lbs 04/19/2016 Blood Pressure 1: 130/88 Code : 8480-6 BMI: 42.4 Code : 30394-5 Heart Rate 1 : 88 bpm Height: 5'2" SpO2: 98% Weight: 232 lbs 04/11/2016 Blood Pressure 1: 140/80 Code : 8480-6 BMI: 41.7 Code : 82565-7 Heart Rate 1 : 97 bpm Height: 5'2" SpO2: 95% Weight: 228 lbs 03/21/2016 Blood Pressure 1: 138/80 Code : 8480-6 BMI: 44.4 Code : 19754-8 Height: 5'2" Weight: 243 lbs 03/11/2016 Blood Pressure 1: 138/82 Code : 8480-6 BMI: 44.4 Code : 95954-6 Heart Rate 1 : 86 bpm Height: 5'2" SpO2: 95% Weight: 243 lbs 02/26/2016 Blood Pressure 1: 130/82 Code : 8480-6 BMI: 43.9 Code : 06054-1 Heart Rate 1 : 86 bpm Height: 5'2" SpO2: 97% Weight: 240 lbs 02/02/2016 Blood Pressure 1: 136/86 Code : 8480-6 Heart Rate 1: 56 bpm Height: SpO2: 96% Weight: 12/17/2015 Blood Pressure 1: 140/80 Code : 8480-6 BMI: 40.2 Code : 53786-0 Heart Rate 1 : 100 bpm Height: 5'2" SpO2: 99% Weight: 220 lbs 12/08/2015 Blood Pressure 1: 132/86 Code : 8480-6 Heart Rate 1: 100 bpm Height: SpO2: 97% Weight: 11/27/2015 Blood Pressure 1: 128/82 Code : 8480-6 BMI: 39.3 Code : 18773-6 Heart Rate 1 : 112 bpm Height: 5'2" SpO2: 96% Weight: 215 lbs 11/12/2015 Blood Pressure 1: 168/88 Code : 8480-6 Heart Rate 1: 106 bpm Height: 5'2" SpO2: 96% Weight: 11/10/2015 Blood Pressure 1: 156/80 Code : 8480-6 Heart Rate 1: 94 bpm Height: 5'2" SpO2: 96% Weight: 10/27/2015 Blood Pressure 1: 142/76 Code : 8480-6 BMI: 40.8 Code : 14485-4 Heart Rate 1 : 86 bpm Height: 5'2" SpO2: 97% Weight: 223 lbs 09/29/2015 Blood Pressure 1: 132/88 Code : 8480-6 BMI: 41.7 Code : 30981-7 Heart Rate 1 : 104 bpm Height: 5'2" SpO2: 94% Weight: 228 lbs 09/22/2015 Blood Pressure 1: 130/80 Code : 8480-6 BMI: 41.7 Code : 67570-9 Heart Rate 1 : 89 bpm Height: 5'2" SpO2: 97% Weight: 228 lbs 09/01/2015 Blood Pressure 1: 138/88 Code : 8480-6 BMI: 40.6 Code : 47668-3 Heart Rate 1 : 95 bpm Height: 5'2" SpO2: 95% Weight: 222 lbs 08/10/2015 Blood Pressure 1: 140/82 Code : 8480-6 BMI: 41.0 Code : 24097-9 Heart Rate 1 : 84 bpm Height: 5'2" SpO2: 97% Weight: 224 lbs 06/26/2015 Blood Pressure 1: 152/72 Code : 8480-6 BMI: 41.2 Code : 53054-3 Heart Rate 1 : 92 bpm Height: 5'2" SpO2: 96% Weight: 225 lbs 04/14/2015 Blood Pressure 1: 158/86 Code : 8480-6 BMI: 41.2 Code : 95295-3 Heart Rate 1 : 63 bpm Height: 5'2" SpO2: 93% Weight: 225 lbs 03/03/2015 Blood Pressure 1: 152/80 Code : 8480-6 BMI: 40.1 Code : 79747-4 Heart Rate 1 : 101 bpm Height: 5'2" SpO2: 97% Weight: 219 lbs 01/15/2015 Blood Pressure 1: 127/76 Code : 8480-6 BMI: 40.6 Code : 91772-5 Heart Rate 1 : 109 bpm Height: 5'2" SpO2: 97% Weight: 222 lbs 01/01/2015 Blood Pressure 1: 136/64 Code : 8480-6 BMI: 40.4 Code : 99361-4 Heart Rate 1 : 94 bpm Height: 5'2" SpO2: 96% Weight: 221 lbs 12/25/2014 Blood Pressure 1: 146/80 Code : 8480-6 Heart Rate 1: 95 bpm Height: 5'2" SpO2: 94% 11/04/2014 Blood Pressure 1: 110/70 Code : 8480-6 BMI: 40.2 Code : 51862-1 Heart Rate 1 : 878 bpm Height: 5'2" SpO2: 97% Weight: 220 lbs 09/08/2014 Blood Pressure 1: 142/78 Code : 8480-6 BMI: 39.5 Code : 48121-2 Heart Rate 1 : 97 bpm Height: 5'2" SpO2: 98% Weight: 216 lbs 08/29/2014 Blood Pressure 1: 140/90 Code : 8480-6 Blood Pressure 2: 120/70 Code: 8480-6 BMI: 40.2 Code: 35881-4 Heart Rate 1: 88 bpm Height: 5'2" Weight: 220 lbs 06/30/2014 Blood Pressure 1: 132/74 Code : 8480-6 BMI: 39.1 Code : 54503-5 Heart Rate 1 : 76 bpm Height: 5'2" Weight: 214 lbs 06/12/2014 Blood Pressure 1: 118/76 Code : 8480-6 BMI: 40.4 Code : 19057-9 Heart Rate 1 : 86 bpm Height: 5'2" SpO2: 96% Weight: 221 lbs 05/26/2014 Blood Pressure 1: 128/78 Code : 8480-6 BMI: 39.5 Code : 51266-4 Heart Rate 1 : 76 bpm Height: 5'2" Weight: 216 lbs 04/15/2014 Blood Pressure 1: 144/72 Code : 8480-6 BMI: 40.8 Code : 46790-7 Heart Rate 1 : 60 bpm Height: 5'2" Weight: 223 lbs 03/25/2014 Blood Pressure 1: 118/72 Code : 8480-6 BMI: 41.2 Code : 02889-9 Heart Rate 1 : 80 bpm Height: 5'2" Weight: 225 lbs 03/03/2014 Blood Pressure 1: 138/86 Code : 8480-6 BMI: 41.5 Code : 91173-7 Heart Rate 1 : 104 bpm Height: 5'2" Temperature: 36.1 (C) / 97.0 (F) Weight: 227 lbs 02/13/2014 Blood Pressure 1: 142/88 Code : 8480-6 BMI: 40.8 Code : 58048-2 Heart Rate 1 : 88 bpm Height: 5'2" Weight: 223 lbs 01/27/2014 Blood Pressure 1: 124/68 Code : 8480-6 BMI: 39.9 Code : 86565-3 Heart Rate 1 : 89 bpm Height: 5'2" SpO2: 94% Weight: 218 lbs 12/26/2013 Blood Pressure 1: 108/52 Code : 8480-6 BMI: 41.2 Code : 78382-6 Heart Rate 1 : 96 bpm Height: 5'2" Weight: 225 lbs 12/12/2013 Blood Pressure 1: 158/88 Code : 8480-6 BMI: 42.6 Code : 59144-6 Heart Rate 1 : 80 bpm Height: 5'2" Weight: 233 lbs 11/14/2013 Blood Pressure 1: 120/60 Code : 8480-6 BMI: 42.4 Code : 03975-8 Heart Rate 1 : 96 bpm Height: 5'2" Temperature: 5423.3 (C ) / 9794.0 (F) Weight: 232 lbs 10/21/2013 Blood Pressure 1: 100/60 Code : 8480-6 BMI: 41.9 Code : 86803-5 Heart Rate 1 : 96 bpm Height: 5'2" Weight: 229 lbs 10/03/2013 Blood Pressure 1: 122/72 Code : 8480-6 BMI: 42.3 Code : 40443-1 Heart Rate 1 : 84 bpm Height: 5'2" Weight: 231 lbs 09/27/2013 Blood Pressure 1: 112/58 Code : 8480-6 Heart Rate 1: 72 bpm SpO2: 93% Temperature: 36.2 (C) / 97.1 (F) Weight: 09/23/2013 Blood Pressure 1: 108/76 Code : 8480-6 BMI: 42.4 Code : 00591-6 Heart Rate 1 : 95 bpm Height: 5'2" SpO2: 96% Weight: 232 lbs 09/20/2013 Blood Pressure 1: 150/88 Code : 8480-6 BMI: 42.4 Code : 66375-9 Heart Rate 1 : 104 bpm Height: 5'2" Weight: 232 lbs 09/10/2013 Blood Pressure 1: 112/62 Code : 8480-6 Heart Rate 1: 88 bpm Weight: 238 lbs 08/19/2013 Blood Pressure 1: 102/58 Code : 8480-6 BMI: 43.7 Code : 59207-4 Heart Rate 1 : 80 bpm Height: 5'2" Weight: 239 lbs 08/12/2013 Blood Pressure 1: 110/60 Code : 8480-6 BMI: 43.3 Code : 27159-2 Heart Rate 1 : 90 bpm Height: 5'2" SpO2: 96% Weight: 236 lbs 8 oz 08/01/2013 Blood Pressure 1: 128/72 Code : 8480-6 BMI: 42.6 Code : 38649-4 Heart Rate 1 : 78 bpm Height: 5'2" SpO2: 97% Weight: 233 lbs 07/19/2013 Blood Pressure 1: 100/60 Code : 8480-6 BMI: 44.3 Code : 32034-6 Heart Rate 1 : 92 bpm Height: 5'2" Temperature: 36.2 (C) / 97.2 (F) Weight: 242 lbs 07/15/2013 Blood Pressure 1: 180/92 Code : 8480-6 Heart Rate 1: 115 bpm SpO2: 98% Weight: 06/27/2013 Blood Pressure 1: 114/64 Code : 8480-6 BMI: 44.1 Code : 50785-7 Heart Rate 1 : 114 bpm Height: 5'2" SpO2: 93% Weight: 241 lbs 06/10/2013 Blood Pressure 1: 174/86 Code : 8480-6 BMI: 44.1 Code : 83640-2 Heart Rate 1 : 132 bpm Height: 5'2" SpO2: 94% Temperature: 35.6 (C) / 96.0 (F) Weight: 241 lbs 05/07/2013 Blood Pressure 1: 160/88 Code : 8480-6 BMI: 43.5 Code : 05148-0 Heart Rate 1 : 108 bpm Height: 5'2" SpO2: 96% Weight: 238 lbs 04/16/2013 Blood Pressure 1: 116/62 Code : 8480-6 BMI: 44.6 Code : 96836-4 Heart Rate 1 : 90 bpm Height: 5'2" SpO2: 94% Weight: 244 lbs 03/21/2013 Blood Pressure 1: 102/64 Code : 8480-6 BMI: 42.8 Code : 30010-8 Height: 5'2" Weight: 234 lbs 02/12/2013 Blood Pressure 1: 130/78 Code : 8480-6 BMI: 42.0 Code : 73446-6 Heart Rate 1 : 100 bpm Height: 5'2" Weight: 229 lbs 8 oz 02/04/2013 Blood Pressure 1: 126/68 Code : 8480-6 BMI: 44.3 Code : 56986-9 Heart Rate 1 : 88 bpm Height: 5'2" Weight: 242 lbs 01/17/2013 Blood Pressure 1: 132/76 Code : 8480-6 Heart Rate 1: 121 bpm SpO2: 97% Weight: 242 lbs 12/31/2012 Blood Pressure 1: 144/90 Code : 8480-6 BMI: 43.0 Code : 80391-3 Heart Rate 1 : 96 bpm Height: 5'2" Temperature: 36.2 (C) / 97.2 (F) Weight: 235 lbs 12/20/2012 Blood Pressure 1: 156/96 Code : 8480-6 BMI: 42.4 Code : 42104-3 Heart Rate 1 : 96 bpm Height: [...] Code : 8480-6 BMI: 38.8 Code : 19946-6 Heart Rate 1 : 96 bpm Height: 5'2" Temperature: 36.3 (C) / 97.3 (F) Weight: 212 lbs 08/23/2012 Blood Pressure 1: 116/72 Code : 8480-6 BMI: 38.3 Code : 88356-1 Heart Rate 1 : 92 bpm Height: 5'2" Weight: 209 lbs 8 oz 08/13/2012 Blood Pressure 1: 140/92 Code : 8480-6 BMI: 37.3 Code : 42070-5 Heart Rate 1 : 104 bpm Height: 5'2" Weight: 204 lbs 08/07/2012 Blood Pressure 1: 148/98 Code : 8480-6 BMI: 36.6 Code : 74708-2 Heart Rate 1 : 102 bpm Height: [...] Code : 8480-6 BMI: 35.3 Code : 39232-7 Heart Rate 1 : 105 bpm Height: [...] Symptom Name Status Result Effective Date Notes Quality insulin dependent 04/27/2018 None Quality chronic [...] december - she was seen by her specialty food products supervisor again in mid 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 She states that she saw her specialty food products supervisor and was to be started on [...] Factors medication 09/10/2013 went to [facility] on Monday and start on Cipro diabetes [...] differently. States she did eat BBQ from [employer] yesterday for lunch. hypertension Quality chronic [...] data Encounters Encounter Performer Location Codes Date ([id number]) [id number] EST. PATIENT, LEVEL III Diagnosis: Cough[ICD10: R05] Diagnosis: Chronic maxillary sinusitis[ICD10: J32.0] Diagnosis: Type 2 diabetes mellitus with hyperglycemia[ICD10: E11.65] Rika Motta MD, [facility] CPT-4: 48553 04/27/2018 ([id number]) 36632 EST. PATIENT, LEVEL IV Diagnosis: Essential (primary) hypertension[ICD10: I10] Diagnosis: Type 2 diabetes mellitus with hyperglycemia[ICD10: E11.65] Diagnosis: Generalized anxiety disorder[ICD10: F41.1] Diagnosis: Weakness[ICD10: R53.1] Rika Motta MD, [facility] CPT-4: 57061 04/10/2018 ([id number]) 74512 EST. PATIENT, LEVEL IV Diagnosis: Type 2 diabetes mellitus with hyperglycemia[ICD10: E11.65] Diagnosis: Low back pain[ICD10: M54.5] Diagnosis: Essential (primary) hypertension[ICD10: I10] Diagnosis: Generalized anxiety disorder[ICD10: F41.1] Rika Motta MD, [facility] CPT-4: 82450 03/12/2018 ([id number]) 19833 EST. PATIENT, LEVEL III Diagnosis: Type 2 diabetes mellitus with hyperglycemia[ICD10: E11.65] Diagnosis: Essential (primary) hypertension[ICD10: I10] Diagnosis: Dysuria[ICD10: R30.0] Diagnosis: Vitamin D deficiency, unspecified[ICD10: E55.9] Diagnosis: Low back pain[ICD10: M54.5] Rika Motta MD, [facility] CPT-4: 29674 02/20/2018 ([id number]) 80361 EST. PATIENT, LEVEL III Diagnosis: Dysuria[ICD10: R30.0] Diagnosis: Essential (primary) hypertension[ICD10: I10] Rika Motta MD, [facility] CPT-4: 42710 11/27/2017 ([id number]) 65825 EST. PATIENT, LEVEL III Diagnosis: Type 2 diabetes mellitus with hyperglycemia[ICD10: E11.65] Diagnosis: Chronic pain syndrome[ICD10: G89.4] Rika Motta MD, [facility] CPT-4: 30868 09/15/2017 ([id number]) 59949 EST. 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 PATIENT, LEVEL III Diagnosis: Chronic maxillary sinusitis[ICD10: J32.0] Diagnosis: Type 2 diabetes mellitus with hyperglycemia[ICD10: E11.65] Diagnosis: Hordeolum externum left upper eyelid[ICD10: H00.014] Rika Motta MD, [facility] CPT-4: 49169 08/03/2017 ([id number]) 45516 EST. PATIENT, LEVEL IV Diagnosis: Type 2 diabetes mellitus with hyperglycemia[ICD10: E11.65] Diagnosis: Hordeolum externum left upper eyelid[ICD10: H00.014] Diagnosis: Essential (primary) hypertension[ICD10: I10] Diagnosis: Chronic obstructive pulmonary disease, unspecified[ICD10: J44.9] Rika Motta MD, [facility] CPT-4: 79615 07/27/2017 ([id number]) 69047 EST. PATIENT, LEVEL IV Diagnosis: Type 2 diabetes mellitus with hyperglycemia[ICD10: E11.65] Diagnosis: Essential (primary) hypertension[ICD10: I10] Tessie Motta MD, [facility] CPT-4: 18460 06/13/2017 [id number] EST. PATIENT, LEVEL IV Diagnosis: Periapical abscess without sinus[ICD10: K04.7] Arlette Motta MD, [facility] CPT-4: 97033 04/21/2017 ([id number]) 31783 EST. PATIENT, LEVEL IV Diagnosis: Type 2 diabetes mellitus with hyperglycemia[ICD10: E11.65] Diagnosis: Cellulitis of abdominal wall[ICD10: L03.311] Diagnosis: Chronic pain syndrome[ICD10: G89.4] Diagnosis: Essential (primary) hypertension[ICD10: I10] Diagnosis: Unsteadiness on feet[ICD10: R26.81] Rika Motta MD, [facility] CPT-4: 09186 04/18/2017 ([id number]) 73545 EST. PATIENT, LEVEL IV Diagnosis: Type 2 diabetes mellitus with hyperglycemia[ICD10: E11.65] Diagnosis: Hypokalemia[ICD10: E87.6] Diagnosis: Essential (primary) hypertension[ICD10: I10] Diagnosis: Paroxysmal atrial fibrillation[ICD10: I48.0] Rika Motta MD, [facility] CPT-4: 64815 03/27/2017 ([id number]) 04497 EST. PATIENT, LEVEL IV Diagnosis: Essential (primary) hypertension[ICD10: I10] Diagnosis: Type 2 diabetes mellitus with hyperglycemia[ICD10: E11.65] Diagnosis: Hypokalemia[ICD10: E87.6] Diagnosis: Generalized abdominal pain[ICD10: R10.84] Rika Motta MD, [facility] CPT-4: 08233 02/27/2017 ([id number]) 43368 EST. PATIENT, LEVEL III Diagnosis: Drug induced constipation[ICD10: K59.03] Rika Motta MD, [facility] CPT-4: 85316 02/21/2017 ([id number]) 55498 EST. PATIENT, LEVEL IV Diagnosis: Generalized abdominal pain[ICD10: R10.84] Diagnosis: Hypokalemia[ICD10: E87.6] Diagnosis: Hypomagnesemia[ICD10: E83.42] Rika Motta MD, [facility] CPT-4: 84457 02/17/2017 ([id number]) 84685 EST. PATIENT, LEVEL IV Diagnosis: Paroxysmal atrial fibrillation[ICD10: I48.0] Diagnosis: Essential (primary) hypertension[ICD10: I10] Diagnosis: Chronic obstructive pulmonary disease, unspecified[ICD10: J44.9] Diagnosis: Type 2 diabetes mellitus with hyperglycemia[ICD10: E11.65] Diagnosis: Diarrhea, unspecified[ICD10: R19.7] Rika Motta MD, [facility] CPT-4: 98132 02/13/2017 ([id number]) 65290 EST. PATIENT, LEVEL IV Diagnosis: Type 2 diabetes mellitus with hyperglycemia[ICD10: E11.65] Diagnosis: Pain in right shoulder[ICD10: M25.511] Diagnosis: Chronic maxillary sinusitis[ICD10: J32.0] Rika Motta MD, [facility] CPT-4: 95121 01/30/2017 ([id number]) 22405 EST. PATIENT, LEVEL IV Diagnosis: Essential (primary) hypertension[ICD10: I10] Diagnosis: Type 2 diabetes mellitus with hyperglycemia[ICD10: E11.65] Diagnosis: Hypothyroidism, unspecified[ICD10: E03.9] Diagnosis: Generalized anxiety disorder[ICD10: F41.1] Diagnosis: Chronic pain syndrome[ICD10: G89.4] Diagnosis: Restless legs syndrome[ICD10: G25.81] Diagnosis: Obstructive sleep apnea (adult) (pediatric)[ICD10: G47.33] Rika Motta MD, [facility] CPT-4: 25739 01/16/2017 [id number] EST. PATIENT, LEVEL IV Diagnosis: Other acute sinusitis[ICD10: J01.80] Diagnosis: Diplopia[ICD10: H53.2] Arlette Motta MD, [facility] CPT-4: 60864 12/13/2016 ([id number]) 10431 EST. PATIENT, LEVEL IV Diagnosis: Essential (primary) hypertension[ICD10: I10] Diagnosis: Fasciculation[ICD10: R25.3] Diagnosis: Generalized anxiety disorder[ICD10: F41.1] Diagnosis: Other obesity due to excess calories[ICD10: E66.09] Diagnosis: [place] without complications[ICD10: B02.9] Diagnosis: Unilateral primary osteoarthritis, right knee[ICD10: M17.11] Diagnosis: Unsteadiness on feet[ICD10: R26.81] Rika Motta MD, [facility] CPT-4: 61849 11/11/2016 ([id number]) [id number] EST. PATIENT, LEVEL IV Diagnosis: [place] without complications[ICD10: B02.9] Diagnosis: Type 2 diabetes mellitus with hyperglycemia[ICD10: E11.65] Diagnosis: Vomiting, unspecified[ICD10: R11.10] Rika Motta MD, [facility] CPT-4: 33805 10/28/2016 ([id number]) [id number] EST. PATIENT, LEVEL III Diagnosis: Pain in right knee[ICD10: M25.561] Diagnosis: [place] without complications[ICD10: B02.9] Rika Motta MD, [facility] CPT-4: 42778 10/13/2016 [id number]) [id number] EST. PATIENT, LEVEL IV Diagnosis: Acute recurrent maxillary sinusitis[ICD10: J01.01] Diagnosis: Low back pain[ICD10: M54.5] Diagnosis: Pain in right knee[ICD10: M25.561] Diagnosis: Allergic rhinitis due to pollen[ICD10: J30.1] Rika Motta MD, [facility] CPT-4: 85000 09/23/2016 ([id number]) 54548 EST. PATIENT, LEVEL IV Diagnosis: Pain in right shoulder[ICD10: M25.511] Diagnosis: Type 2 diabetes mellitus with hyperglycemia[ICD10: E11.65] Diagnosis: Cervicalgia[ICD10: M54.2] Diagnosis: Candidiasis of skin and nail[ICD10: B37.2] Diagnosis: Low back pain[ICD10: M54.5] Rika Motta MD, [facility] CPT-4: 71193 09/13/2016 ([id number]) 85268 EST. 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 PATIENT, LEVEL IV Diagnosis: Type 2 diabetes mellitus with hyperglycemia[ICD10: E11.65] Diagnosis: Candidiasis of skin and nail[ICD10: B37.2] Diagnosis: Chronic obstructive pulmonary disease, unspecified[ICD10: J44.9] Diagnosis: Paroxysmal atrial fibrillation[ICD10: I48.0] Diagnosis: Pneumonia, unspecified organism[ICD10: J18.9] Rika Motta MD, [facility] CPT-4: 10837 07/26/2016 ([id number]) 56140 EST. PATIENT, LEVEL IV Diagnosis: Type 2 diabetes mellitus with hyperglycemia[ICD10: E11.65] Diagnosis: Generalized anxiety disorder[ICD10: F41.1] Diagnosis: Essential (primary) hypertension[ICD10: I10] Diagnosis: Chronic pain syndrome[ICD10: G89.4] Rika Motta MD, [facility] CPT-4: 20642 05/24/2016 ([id number]) 31257 EST. PATIENT, LEVEL IV Diagnosis: Menopausal and female climacteric states[ICD10: N95.1] Diagnosis: Type 2 diabetes mellitus with hyperglycemia[ICD10: E11.65] Diagnosis: Generalized anxiety disorder[ICD10: F41.1] Rika Motta MD, [facility] CPT-4: 51530 04/19/2016 ([id number]) 00767 EST. PATIENT, LEVEL IV Diagnosis: Type 2 diabetes mellitus with hyperglycemia[ICD10: E11.65] Diagnosis: Generalized anxiety disorder[ICD10: F41.1] Diagnosis: Essential (primary) hypertension[ICD10: I10] Diagnosis: Dysuria[ICD10: R30.0] Rika Motta MD, [facility] CPT-4: 52508 04/11/2016 ([id number]) 99970 EST. PATIENT, LEVEL IV Diagnosis: Generalized anxiety disorder[ICD10: F41.1] Diagnosis: Major depressive disorder, single episode, mild[ICD10: F32.0] Diagnosis: Hypothyroidism, unspecified[ICD10: E03.9] Diagnosis: Type 2 diabetes mellitus with hyperglycemia[ICD10: E11.65] Rika Motta MD, [facility] CPT-4: 97116 03/21/2016 ([id number]) 31527 EST. PATIENT, LEVEL IV Diagnosis: Type 2 diabetes mellitus with hyperglycemia[ICD10: E11.65] Diagnosis: Cellulitis of right lower limb[ICD10: L03.115] Diagnosis: Other elevated white blood cell count[ICD10: D72.828] Diagnosis: Localized edema[ICD10: R60.0] Rika Motta MD, [facility] CPT-4: 56868 03/11/2016 ([id number]) 26990 EST. PATIENT, LEVEL IV Diagnosis: Type 2 diabetes mellitus with hyperglycemia[ICD10: E11.65] Diagnosis: Localized edema[ICD10: R60.0] Diagnosis: Other conjunctivitis[ICD10: H10.89] Diagnosis: Obstructive sleep apnea (adult) (pediatric)[ICD10: G47.33] Diagnosis: Unspecified asthma, uncomplicated[ICD10: J45.909] Diagnosis: VAC STREP PNEUMONIAE-FLU[ICD10: Z23] Rika Motta MD, [facility] CPT-4: 12503 02/26/2016 ([id number]) 92620 EST. PATIENT, LEVEL IV Diagnosis: Essential (primary) hypertension[ICD10: I10] Diagnosis: Paroxysmal atrial fibrillation[ICD10: I48.0] Diagnosis: Type 2 diabetes mellitus with hyperglycemia[ICD10: E11.65] Diagnosis: Obstructive sleep apnea (adult) (pediatric)[ICD10: G47.33] Diagnosis: Chronic obstructive pulmonary disease, unspecified[ICD10: J44.9] Rika Motta MD, [facility] CPT-4: 32557 02/02/2016 ([id number]) 37383 EST. 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 PATIENT, LEVEL IV Diagnosis: Type 2 diabetes mellitus with hyperglycemia[ICD10: E11.65] Diagnosis: Generalized anxiety disorder[ICD10: F41.1] Diagnosis: Essential (primary) hypertension[ICD10: I10] Diagnosis: Restless legs syndrome[ICD10: G25.81] Diagnosis: Dysuria[ICD10: R30.0] Rika Motta MD, [facility] CPT-4: 76871 11/27/2015 51305 EST. PATIENT, LEVEL IV Diagnosis: Addisonian crisis[ICD10: E27.2] [facility] CPT-4 : 91953 11/12/2015 68555 EST. PATIENT, LEVEL IV Diagnosis: Acute bronchitis due to other specified organisms[ICD10: J20.8] Diagnosis: Other acute sinusitis[ICD10: J01.80] Diagnosis: Other malaise[ICD10: R53.81] Diagnosis: Cough[ICD10: R05] Arlette Motta MD, [facility] CPT-4: 64584 11/10/2015 04800 EST. PATIENT, LEVEL IV Diagnosis: Pain in left knee[ICD10: M25.562] Diagnosis: Cellulitis of right toe[ICD10: L03.031] Arlette Motta MD, [facility] CPT-4: 96190 10/27/2015 ([id number]) 68033 EST. PATIENT, LEVEL IV Diagnosis: Essential (primary) hypertension[ICD10: I10] Diagnosis: Localized edema[ICD10: R60.0] Diagnosis: Type 2 diabetes mellitus with hyperglycemia[ICD10: E11.65] Rika Motta MD, [facility] CPT-4: 79201 09/22/2015 ([id number]) 01404 EST. PATIENT, LEVEL IV Diagnosis: Essential (primary) hypertension[ICD10: I10] Diagnosis: Type 2 diabetes mellitus with hyperglycemia[ICD10: E11.65] Diagnosis: Cellulitis of right toe[ICD10: L03.031] Rika Motta MD, [facility] CPT-4: 09320 09/01/2015 ([id number]) 43664 EST. PATIENT, LEVEL IV Diagnosis: Type 2 diabetes mellitus with hyperglycemia[ICD10: E11.65] Diagnosis: Essential (primary) hypertension[ICD10: I10] Diagnosis: Generalized anxiety disorder[ICD10: F41.1] Diagnosis: Hypothyroidism, unspecified[ICD10: E03.9] Diagnosis: Body mass index (BMI) 40.0-44.9, adult[ICD10: Z68.41] Rika Motta MD, [facility] CPT-4: 83349 08/10/2015 97135 EST. PATIENT, LEVEL IV Diagnosis: Acute bronchitis due to other specified organisms[ICD10: J20.8] Diagnosis: Pain in left knee[ICD10: M25.562] Diagnosis: Type 2 diabetes mellitus with hyperglycemia[ICD10: E11.65] Arlette Motta MD, [facility] CPT-4: 46445 06/26/2015 ([id number]) 11862 EST. PATIENT, LEVEL IV Diagnosis: Cellulitis of right lower limb[ICD10: L03.115] Diagnosis: Type 2 diabetes mellitus with hyperglycemia[ICD10: E11.65] Diagnosis: Essential (primary) hypertension[ICD10: I10] Diagnosis: Edema, unspecified[ICD10: R60.9] Rika Motta MD, [facility] CPT-4: 61284 04/14/2015 ([id number]) 15169 EST. PATIENT, LEVEL IV Diagnosis: Essential (primary) hypertension[ICD10: I10] Diagnosis: Type 2 diabetes mellitus with hyperglycemia[ICD10: E11.65] Diagnosis: Localized edema[ICD10: R60.0] Diagnosis: Dysuria[ICD10: R30.0] Rika Motta MD, [facility] CPT-4: 34044 03/03/2015 ([id number]) 29528 EST. PATIENT, LEVEL III Diagnosis: Blister of leg[ICD9: 916.2] Diagnosis: Rash[ICD9: 782.1] Diagnosis: EDEMA[ICD9: 782.3] Tessie Motta MD, [facility] CPT-4: 63207 01/15/2015 ([id number]) 50886 EST. PATIENT, LEVEL IV Diagnosis: Cellulitis, leg[ICD9: 682.6] Diagnosis: DIABETES TYPE II[ICD9: 250.00] Tessie Motta MD, [facility] CPT- 4: 20624 01/01/2015 ([id number]) Miscellaneous no charge Diagnosis: CVA (cerebral vascular accident)[ICD9: 434.91] Isabella Motta MD, [facility] CPT-4: 06974 12/25/2014 ([id number]) 36520 EST. PATIENT, LEVEL IV Diagnosis: ESSENTIAL HYPERTENSION[ICD9: 401.9] Diagnosis: DM W/O COMPLICATION TYPE II, UNCONTROLLED[ICD9: 250.02] Diagnosis: EDEMA[ICD9: 782.3] Diagnosis: Dysuria[ICD9: 788.1] Rika Motta MD, [facility] CPT-4: 00961 11/04/2014 ([id number]) 35622 EST. PATIENT, LEVEL IV Diagnosis: EDEMA[ICD9: 782.3] Diagnosis: Cellulitis of right leg[ICD9: 682.6] Diagnosis: Allergic rhinitis[ICD9: 477.9] Rika Motta MD, [facility] CPT-4: 51925 09/08/2014 ([id number]) 35365 EST. PATIENT, LEVEL IV Diagnosis: EDEMA[ICD9: 782.3] Diagnosis: ESSENTIAL HYPERTENSION[ICD9: 401.9] Diagnosis: DIABETES TYPE II[ICD9: 250.00] Diagnosis: Cellulitis of right leg[ICD9: 682.6] Rika Motta MD, [facility] CPT-4: 42498 08/29/2014 ([id number]) 33470 EST. PATIENT, LEVEL III Diagnosis: EDEMA[ICD9: 782.3] Diagnosis: DIABETES TYPE II[ICD9: 250.00] Tessie Motta MD, [facility] CPT- 4: 86378 06/30/2014 ([id number]) 89614 EST. PATIENT, LEVEL IV Diagnosis: EDEMA[ICD9: 782.3] Diagnosis: DM W/O COMPLICATION TYPE II, UNCONTROLLED[ICD9: 250.02] Diagnosis: Sciatica[ICD9: 724.3] Tessie Motta MD, [facility] CPT-4: 23923 06/12/2014 ([id number]) 59820 EST. PATIENT, LEVEL III Diagnosis: Cellulitis, leg[ICD9: 682.6] Diagnosis: EDEMA[ICD9: 782.3] Rika Motta MD, [facility] CPT-4: 59962 05/26/2014 ([id number]) 40135 EST. PATIENT, LEVEL IV Diagnosis: DIABETES TYPE II[ICD9: 250.00] Diagnosis: Chronic sinusitis[ICD9: 473.9] Tessie Motta MD, [facility] CPT- 4: 69626 04/15/2014 ([id number]) 20305 EST. PATIENT, LEVEL IV Diagnosis: DM W/O COMPLICATION TYPE II, UNCONTROLLED[ICD9: 250.02] Diagnosis: CHRONIC SINUSITIS[ICD9: 473.9] Diagnosis: EDEMA[ICD9: 782.3] Diagnosis: Right knee pain[ICD9: 719.46] Rika Motta MD, [facility] CPT-4: 80701 03/25/2014 ([id number]) 64803 EST. PATIENT, LEVEL IV Diagnosis: Blister of leg[ICD9: 916.2] Diagnosis: EDEMA[ICD9: 782.3] Diagnosis: DM W/O COMPLICATION TYPE II, UNCONTROLLED[ICD9: 250.02] Diagnosis: ESSENTIAL HYPERTENSION[ICD9: 401.9] Rika Motta MD, [facility] CPT-4: 92383 03/03/2014 ([id number]) 68536 EST. PATIENT, LEVEL IV Diagnosis: CELLULITIS OF LEG[ICD9: 682.6] Diagnosis: Diabetes mellitus type 2, uncontrolled[ICD9: 250.02] Diagnosis: ESSENTIAL HYPERTENSION[ICD9: 401.9] Diagnosis: EDEMA[ICD9: 782.3] Tessie Motta MD, [facility] CPT-4: 93662 02/13/2014 ([id number]) 58866 EST. PATIENT, LEVEL IV Diagnosis: Diabetes mellitus type 2, uncontrolled[ICD9: 250.02] Tessie Motta MD [facility] CPT-4: 53002 01/27/2014 ([id number]) 15119 EST. PATIENT, LEVEL III Diagnosis: OPEN WND KNEE/LEG/ANKLE[ICD9: 891.0] Diagnosis: EDEMA[ICD9: 782.3] Rika Motta MD, [facility] CPT-4: 82386 12/26/2013 ([id number]) 02992 EST. PATIENT, LEVEL III Diagnosis: Cellulitis of right leg[ICD9: 682.6] Diagnosis: OPEN WND KNEE/LEG/ANKLE[ICD9: 891.0] Rika Motta MD, [facility] CPT-4: 98968 12/12/2013 ([id number]) 72471 EST. PATIENT, LEVEL IV Diagnosis: Asthma exacerbation[ICD9: 493.92] Diagnosis: COUGH[ICD9: 786.2] Diagnosis: EDEMA[ICD9: 782.3] Rika Motta MD, [facility] CPT-4: 86548 11/14/2013 ([id number]) 79094 EST. PATIENT, LEVEL III Diagnosis: OPEN WND KNEE/LEG/ANKLE[ICD9: 891.0] Diagnosis: EDEMA[ICD9: 782.3] Rika Motta MD, [facility] CPT-4: 04753 10/21/2013 ([id number]) 34111 EST. PATIENT, LEVEL IV Diagnosis: ESSENTIAL HYPERTENSION[SNOMED: 28375570] Diagnosis: Right knee pain[ICD9: 719.46] Diagnosis: OPEN WND KNEE/LEG/ANKLE[ICD9: 891.0] Rika Motta MD, [facility] CPT-4: 94043 10/03/2013 ([id number]) Miscellaneous no charge Diagnosis: Open wound of leg[ICD9: 891.0] Rika Motta MD, [facility] CPT-4: 22806 09/27/2013 10355 EST. PATIENT, LEVEL II Diagnosis: Open wound of leg[ICD9: 891.0] Diagnosis: Wrist pain, left[ICD9: 719.43] Rika Motta MD, [facility] CPT-4: 72658 09/23/2013 ([id number]) 91929 EST. PATIENT, LEVEL IV Diagnosis: CELLULITIS OF LEG[ICD9: 682.6] Diagnosis: ESSENTIAL HYPERTENSION[SNOMED: 09152237] Diagnosis: EDEMA[ICD9: 782.3] Rika Motta MD, [facility] CPT-4: 14469 09/20/2013 ([id number]) 96624 EST. PATIENT, LEVEL IV Diagnosis: Open wound of right lower leg[ICD9: 891.0] Diagnosis: DM W/O COMPLICATION TYPE II, UNCONTROLLED[SNOMED: 14240454] Diagnosis: Edema[ICD9: 782.3] Rika Motta MD, [facility] CPT-4: 79528 09/10/2013 ([id number]) 21807 EST. PATIENT, LEVEL III Diagnosis: DM W/O COMPLICATION TYPE II, UNCONTROLLED[SNOMED: 35204589] Diagnosis: EDEMA[ICD9: 782.3] Tessie Motta MD, [facility] CPT-4: 69436 08/19/2013 ([id number]) 82354 EST. PATIENT, LEVEL IV Diagnosis: EDEMA[ICD9: 782.3] Diagnosis: DIABETES TYPE II[SNOMED: 386850989] Diagnosis: HYPOTHYROIDISM[ICD9: 244.9] Diagnosis: LUMBAGO[ICD9: 724.2] Diagnosis: SCIATICA[ICD9: 724.3] Tessie Motta MD, [facility] CPT-4: 04992 08/12/2013 ([id number]) 24809 EST. PATIENT, LEVEL IV Diagnosis: DIABETES TYPE II[SNOMED: 310086083] Diagnosis: EDEMA[ICD9: 782.3] Diagnosis: HYPOTHYROIDISM[ICD9: 244.9] Diagnosis: Encounter for long-term (current) use of other medications[ICD9: V58.69] Diagnosis: LUMBAGO[ICD9: 724.2] Rika Motta MD, [facility] CPT-4: 25459 08/01/2013 ([id number]) 00555 EST. PATIENT, LEVEL III Diagnosis: Blister of right foot[ICD9: 917.2] Rika Motta MD, [facility] CPT-4: 46607 07/19/2013 ([id number]) 33348 EST. PATIENT, LEVEL III Diagnosis: Cellulitis of right leg[ICD9: 682.6] Diagnosis: ESSENTIAL HYPERTENSION[SNOMED: 36190964] Diagnosis: EDEMA[ICD9: 782.3] Rika Motta MD, [facility] CPT-4: 88774 07/15/2013 ([id number]) 59214 EST. PATIENT, LEVEL IV Diagnosis: DIABETES TYPE II[SNOMED: 183862865] Diagnosis: BACKACHE[ICD9: 724.5] Diagnosis: Muscle spasms of neck[ICD9: 728.85] Tessie Motta MD, [facility] CPT-4: 56455 06/27/2013 ([id number]) 65007 EST. PATIENT, LEVEL IV Diagnosis: DM W/O COMPLICATION TYPE II, UNCONTROLLED[SNOMED: 59272243] Diagnosis: EDEMA[ICD9: 782.3] Diagnosis: OBESITY[ICD9: 278.00] Diagnosis: WHEEZING[ICD9: 786.07] Tessie Motta MD, [facility] CPT-4: 73016 06/10/2013 ([id number]) 49684 EST. PATIENT, LEVEL IV Diagnosis: CHRONIC SINUSITIS[ICD9: 473.9] Diagnosis: WHEEZING[ICD9: 786.07] Diagnosis: ACUTE BRONCHITIS[ICD9: 466.0] Diagnosis: Back pain[ICD9: 724.5] Tessie Motta MD, [facility] CPT-4: 62729 05/07/2013 ([id number]) 49336 EST. PATIENT, LEVEL IV Diagnosis: EDEMA[ICD9: 782.3] Diagnosis: COPD (chronic obstructive pulmonary disease) with acute bronchitis[ ICD9: 491.22] Tessie Motta MD, [facility] CPT-4: 45378 04/16/2013 ([id number]) 91501 EST. PATIENT, LEVEL IV Diagnosis: Lumbago[ICD9: 724.2] Diagnosis: DM W/O COMPLICATION TYPE II, UNCONTROLLED[SNOMED: 34842760] Diagnosis: EDEMA[ICD9: 782.3] Rika Motta MD, [facility] CPT-4: 97740 03/21/2013 ([id number]) 17695 EST. PATIENT, LEVEL IV Diagnosis: Abdominal pain[ICD9: 789.00] Diagnosis: EDEMA[ICD9: 782.3] Diagnosis: DIABETES TYPE II[SNOMED: 594763853] Tessie Motta MD [facility] CPT-4: 29881 02/12/2013 ([id number]) 39298 EST. PATIENT, LEVEL III Diagnosis: EDEMA[ICD9: 782.3] Diagnosis: RESPIRATORY ABNORM NEC[ICD9: 786.09] Tessie Motta MD, [facility] CPT-4: 57060 02/04/2013 ([id number]) 40934 EST. PATIENT, LEVEL IV Diagnosis: Edema[ICD9: 782.3] Diagnosis: ESSENTIAL HYPERTENSION[SNOMED: 40283397] Tessie Motta MD, [facility] CPT-4: 68651 01/17/2013 ([id number]) 32806 EST. PATIENT, LEVEL IV Diagnosis: ESSENTIAL HYPERTENSION[SNOMED: 14916746] Diagnosis: Diabetic leg ulcer[ICD9: 250.80] Diagnosis: Callus[ICD9: 700] Diagnosis: Urinary urgency[ICD9: 788.63] Diagnosis: HYPOTHYROIDISM[ICD9: 244.9] Rika Motta MD, [facility] CPT-4: 90529 12/31/2012 ([id number]) 08227 EST. PATIENT, LEVEL IV Diagnosis: Cellulitis of left leg[ICD9: 682.6] Diagnosis: DIABETES TYPE II[SNOMED: 780666364] Diagnosis: ESSENTIAL HYPERTENSION[SNOMED: 17021746] Diagnosis: EDEMA[ICD9: 782.3] Rika Motta MD, [facility] CPT-4: 39562 12/20/2012 ([id number]) 66732 EST. PATIENT, LEVEL III Diagnosis: Acute bronchitis[ICD9: 466.0] Diagnosis: COUGH[ICD9: 786.2] Tessie Motta MD [facility] CPT-4: 36609 10/29/2012 ([id number]) 60745 EST. PATIENT, LEVEL IV Diagnosis: ESSENTIAL HYPERTENSION[SNOMED: 85848686] Diagnosis: DIABETES TYPE II[SNOMED: 257905316] Diagnosis: HYPOTHYROIDISM[ICD9: 244.9] Tessie Motta MD [facility] CPT- 4: 02107 09/06/2012 ([id number]) 27891 EST. PATIENT, LEVEL IV Diagnosis: DIABETES TYPE II[SNOMED: 500238227] Diagnosis: ESSENTIAL HYPERTENSION[SNOMED: 66862691] Diagnosis: Diarrhea[ICD9: 787.91] Tessie Motta MD [facility] CPT-4: 33352 08/23/2012 ([id number]) 67280 EST. PATIENT, LEVEL III Diagnosis: ESSENTIAL HYPERTENSION[SNOMED: 64191314] Diagnosis: Gastroenteritis[ICD9: 558.9] Rika Motta MD [facility] CPT-4: 01328 08/13/2012 ([id number]) 65423 EST. PATIENT, LEVEL IV Diagnosis: Diarrhea[ICD9: 787.91] Diagnosis: ESSENTIAL HYPERTENSION[SNOMED: 58239420] Diagnosis: DM W/O COMPLICATION TYPE II, UNCONTROLLED[SNOMED: 52947203] Rika Motta MD [facility] CPT-4: 91666 08/07/2012 ([id number]) 77047 EST. PATIENT, LEVEL III Diagnosis: Acute sinusitis[ICD9: 461.9] Diagnosis: Thrush[ICD9: 112.0] Rika Motta MD [facility] CPT-4: 89139 07/06/2012 ([id number]) 88629 EST. PATIENT, LEVEL IV Diagnosis: ESSENTIAL HYPERTENSION[SNOMED: 73384048] Diagnosis: DIABETES TYPE II[SNOMED: 838648747] Tessie Motta MD [facility] CPT-4: 57541 06/07/2012 ([id number]) 39760 EST. PATIENT, LEVEL IV Diagnosis: ESSENTIAL HYPERTENSION[SNOMED: 02980034] Diagnosis: ACUTE SINUSITIS[ICD9: 461.9] Diagnosis: Labial cyst[ICD9: 624.8] Tessie Motta MD [facility] CPT-4: 58197 05/28/2012 ([id number]) 09607 EST. PATIENT, LEVEL IV Diagnosis: ESSENTIAL HYPERTENSION[SNOMED: 32708611] Diagnosis: EDEMA[ICD9: 782.3] Tessie Motta MD [facility] CPT-4: 59975 05/17/2012 ([id number]) 39738 EST. PATIENT, LEVEL IV Diagnosis: EDEMA[ICD9: 782.3] Diagnosis: ESSENTIAL HYPERTENSION[SNOMED: 39001558] Diagnosis: Diarrhea[ICD9: 787.91] Diagnosis: ALLERGIC RHINITIS[ICD9: 477.9] Tessie Motta MD [facility] CPT- 4: 30204 05/02/2012 ([id number]) 73664 EST. PATIENT, LEVEL IV Diagnosis: ACUTE SINUSITIS[ICD9: 461.9] Diagnosis: ESSENTIAL HYPERTENSION[SNOMED: 13782343] Diagnosis: ALLERGIC RHINITIS[ICD9: 477.9] Tessie Motta MD [facility] CPT- 4: 15147 04/10/2012 ([id number]) 90627 EST. PATIENT, LEVEL IV Diagnosis: ESSENTIAL HYPERTENSION[SNOMED: 61779618] Diagnosis: Foreign body in foot or toe[ICD9: 917.6] Diagnosis: EDEMA[ICD9: 782.3] Tessie Motta MD [facility] CPT-4: 85206 02/27/2012 ([id number]) 02099 EST. PATIENT, LEVEL IV Diagnosis: CELLULITIS OF FOOT[ICD9: 682.7] Diagnosis: DIABETES TYPE II[SNOMED: 479095711] Diagnosis: EDEMA[ICD9: 782.3] Tessie Motta MD [facility] CPT-4: 28214 02/15/2012 ([id number]) 99955 EST. PATIENT, LEVEL IV Diagnosis: EDEMA[ICD9: 782.3] Diagnosis: ESSENTIAL HYPERTENSION[SNOMED: 30200786] Diagnosis: ACUTE SINUSITIS[ICD9: 461.9] Diagnosis: Dysuria[ICD9: 788.1] Tessie Motta MD [facility] CPT-4: 00937 02/01/2012 ([id number]) 94672 EST. PATIENT, LEVEL IV Diagnosis: DIABETES TYPE II[SNOMED: 954281842] Diagnosis: Diverticulitis[ICD9: 562.11] Tessie Motta MD [facility] CPT- 4: 88176 12/14/2011 ([id number]) 03001 EST. PATIENT, LEVEL IV Diagnosis: Nausea vomiting and diarrhea[ICD9: 787.01] Diagnosis: ESSENTIAL HYPERTENSION[SNOMED: 43102082] Diagnosis: DM W/O COMPLICATION TYPE II, UNCONTROLLED[SNOMED: 41224173] Tessie Motta MD [facility] CPT-4: 97958 11/30/2011 ([id number]) 30804 EST. PATIENT, LEVEL IV Diagnosis: ESSENTIAL HYPERTENSION[SNOMED: 38073948] Diagnosis: DIABETES TYPE II[SNOMED: 557232393] Diagnosis: COUGH[ICD9: 786.2] Tessie Motta MD [facility] CPT-4: 96009 11/17/2011 ([id number]) Patient admitted to the hospital from clinic (NO CHARGE) Diagnosis: Tachycardia[ICD9: 785.0] Diagnosis: Dyspnea[ICD9: 786.09] Diagnosis: Wheezing[ICD9: 786.07] Diagnosis: FALL AGAINST OBJECT[ICD9: E888.1] Diagnosis: ANXIETY STATE[ICD9: 300.00] Diagnosis: ESSENTIAL HYPERTENSION[SNOMED: 82200575] Diagnosis: Chronic depression[ICD9: 311] Diagnosis: Diabetes mellitus type 2, uncontrolled[SNOMED: 95104727] Tessie Motta MD [facility] CPT-4: 69317Q 11/03/2011 ([id number]) 97427 EST. PATIENT, LEVEL IV Diagnosis: DIABETES TYPE II[SNOMED: 713904614] Diagnosis: ANXIETY STATE[ICD9: 300.00] Diagnosis: DEPRESSIVE DISORDER NEC[ICD9: 311] Diagnosis: Ulcer of toe[ICD9: 707.15] Tessie Motta MD [facility] CPT- 4: 36865 10/24/2011 ([id number]) 38639 EST. PATIENT, LEVEL IV Diagnosis: EDEMA[ICD9: 782.3] Diagnosis: ESSENTIAL HYPERTENSION[SNOMED: 42004890] Diagnosis: ANXIETY STATE[ICD9: 300.00] Tessie Motta MD [facility] CPT- 4: 78618 09/26/2011 54824 EST. PATIENT, LEVEL IV Diagnosis: EDEMA[ICD9: 782.3] Diagnosis: ESSENTIAL HYPERTENSION[SNOMED: 51420352] Rika Motta MD [facility] CPT-4: 41161 09/20/2011 ([id number]) 80260 EST. PATIENT, LEVEL IV Diagnosis: ACUTE SINUSITIS[ICD9: 461.9] Diagnosis: Allergic rhinitis[ICD9: 477.9] Diagnosis: Cough[ICD9: 786.2] Tessie Motta MD [facility] CPT-4: 03692 09/01/2011 ([id number]) 21249 EST. PATIENT, LEVEL IV Diagnosis: Chronic sinusitis[ICD9: 473.9] Diagnosis: Anxiety, generalized[ICD9: 300.02] Tessie Motta MD [facility] CPT-4: 92676 08/15/2011 24408 EST. PATIENT, LEVEL IV Diagnosis: ACUTE SINUSITIS[ICD9: 461.9] Diagnosis: Tachycardia[ICD9: 785.0] Diagnosis: Anxiety[ICD9: 300.00] Diagnosis: Dehydration[ICD9: 276.51] Diagnosis: Sciatica[ICD9: 724.3] Tessie Motta MD [facility] CPT-4: 44221 08/09/2011 32324 EST. PATIENT, LEVEL IV Diagnosis: DIABETES TYPE II[SNOMED: 179470999] Diagnosis: Sciatica[ICD9: 724.3] Diagnosis: Yeast infection[ICD9: 112.9] Tessie Motta MD, [facility] CPT- 4: 82096 08/01/2011 ([id number]) 65889 EST. PATIENT, LEVEL IV Diagnosis: DIABETES TYPE II[SNOMED: 815345009] Diagnosis: ACUTE MAXILLARY SINUSITIS[ICD9: 461.0] Diagnosis: Fibromyalgia[ICD9: 729.1] Tessie Motta MD [facility] CPT-4: 44950 06/20/2011 85207 EST. PATIENT, LEVEL IV Diagnosis: ESSENTIAL HYPERTENSION[SNOMED: 05330515] Diagnosis: DIABETES TYPE II[SNOMED: 005007921] Diagnosis: ACUTE MAXILLARY SINUSITIS[ICD9: 461.0] Tessie Motta MD, [facility] CPT-4: 23608 04/18/2011 Plan of Care Planned Activity Notes Codes Status Date Visit Plan: Chronic sinus infections -congestion -will [...] verbalized understanding. 04/27/2018 Appointment: Rika Bello WPtel: [phone] (30 min) Complex 04/27/2018 Patient Education: Patient Medication Summary Completed 04/27/2018 Appointment: Rika Bello WPtel: [facility] [phone] [place] (15 min) Moderate 04/24/2018 Appointment: Nurse [...] and return Monday for removal of IPRO [place]-[id number] changes in medications-recommend counseling-patient refuses Weakness-patient is deconditioned-refuses PT -recommend patient start walking more 04/10/2018 Appointment: [facility] Bello [facility]Ptel[phone] [facility] [phone] (15 min) Moderate 04/10/2018 Patient Education: Patient Medication Summary Completed 04/10/2018 Appointment: Arlette Skelton WPtel: [facility] [phone] (15 min) Moderate 03/21/2018 Appointment: Rika Bello WPtel: [phone] (30 min) Complex 03/20/2018 Visit Plan: [...] as directed 03/12/2018 Appointment: Rika Bello WPtel: [phone] (15 min) Moderate 03/12/2018 Patient Education: Patient Medication Summary Completed 03/12/2018 Patient Education: Back Pain Completed 03/12/2018 Appointment: Rika Bello WPtel: [phone] (30 min) Complex 03/08/2018 Appointment: Lab [...] next refill 02/20/2018 Appointment: Rika Bello WPtel: [phone] [phone] [place] (15 min) Moderate 02/20/2018 Patient Education: Patient Medication Summary Completed 02/20/2018 Patient Education: Back Pain Completed 02/20/2018 Patient Education: Patient Medication Summary Completed 02/20/2018 Care Plan: Iron Pending 02/20/2018 Appointment: Rika Bello WPtel: [address] [place] (30 min) Complex 02/19/2018 Appointment: Rika Bello WPtel: [address] [place] (15 min) Moderate 02/01/2018 Visit Plan: UA negative -no culture indicated 12/14/2017 Appointment: Lab Draw 12/14/2017 Patient Education: Patient Medication Summary Completed 12/14/2017 Visit Plan: Dysuria-urinary incontinence-culture urine HTN- elevated today-monitor at home -follow up with sales producer 11/27/2017 Appointment: Rika Bello WPtel: [phone] [phone] [place] (15 min) Moderate 11/27/2017 Patient Education: [...] Medication Summary Completed 10/27/2017 Care Plan: SCREENINGMAMMOGRAPHYDIGITAL [facility] : 73031-5 Pending 10/27/2017 Appointment: Arlette Skelton WPtel: 1015 [facility] (15 min) Moderate 10/03/2017 Appointment: Arlette Skelton WPtel: 1015 [facility] (15 min) Moderate 10/02/2017 Appointment: Rika Bello WPtel: [phone] (30 min) Complex 09/29/2017 Visit Plan: Continuous [...] worsened. 09/27/2017 Appointment: Arlette Skelton WPtel: [phone] [facility] (30 min) Complex 09/27/2017 Patient Education: Patient Medication Summary Completed 09/27/2017 Care Plan: CT HEAD/BRAIN W/O DYE LOINC : 83995-6 Pending 09/27/2017 Visit Plan: DM-patient noncompliant with [...] over- medication. 09/15/2017 Appointment: Rika Bello WPtel: [phone] [phone] [place] (30 min) Complex 09/15/2017 Patient Education: Patient Medication Summary Completed 09/15/2017 Appointment: Rika Bello WPtel: [phone] [phone] [place] (30 min) Complex 09/12/2017 Appointment: Rika Bello WPtel: [phone] [phone] [place] (30 min) Complex 09/07/2017 Visit Plan: Sww-vgvrrggxjx-wq changes Anemia-check cbc today Dental infection-on clindamycin per Dr Bryant-start probiotics Also needs to monitor blood sugars closely 08/18/2017 Appointment: Rika Bello WPtel: [phone] [phone] [place] (30 min) Complex 08/18/2017 Patient Education: Patient [...] not resolve 08/03/2017 Appointment: Rika Bello WPtel: [phone] (30 min) [facility] 08/03/2017 Patient Education: Patient Medication Summary Completed [...] worsen 07/27/2017 Appointment: Rika Bello WPtel: [phone] [phone] [place] (30 min) Complex 07/27/2017 Patient Education: Patient [...] medications 06/13/2017 Appointment: Tess[facility] Motta [facility]el: [phone] [facility] [place] (15 min) Moderate 06/13/2017 Patient Education: Patient Medication Summary Completed 06/13/2017 Visit Plan: Dental abscess - will send RX - pt is to keep her appointment with her dentist - pt is to notify clinic if symptoms do not improve, if they worsen, or with any other acute changes, questions, or concerns. 04/21/2017 Appointment: Arlette Skelton WPtel: [phone] [facility] [place] (30 min) Complex 04/21/2017 Patient Education: [...] UNITS Q HS RESCHEDULE APPT WITH DR ASPEN HoWwgbsddmg-teiqplcja-li for bactroban ointment provided and instructed on use DGI-txejfdqwih-ks change in medications Mildly elevated liver enzymes-discussed with Dr motta-suspect due to gabapentin-will monitor levels Gait instability-again recommend patient use walker as well as PT 04/18/2017 Appointment: Rika Bello WPtel: [phone] [phone] (30 min) Complex 04/18/2017 Patient Education: Patient [...] become less controlled. Low potassium- check labs GTZ-mvdfvwltds-cb changes Afib-check digoxin level with labs Abdominal [...] become less controlled. Low potassium- check labs ULB-ljpohdfque-bg changes Afib-check digoxin level with labs Abdominal pain-refill levsin for prn use -call if pain uncontrolled 03/27/2017 Appointment: Rika Bello WPtel: [address] [place], [place] [phone] [address] (30 min) Complex 03/27/2017 Patient Education: Patient Medication Summary Completed 03/27/2017 Appointment: Rika Bello WPtel: [address] [place], [place] [phone] [place] [address] (30 min) Complex 03/24/2017 Visit Plan: Hypertension - well controlled - continue with current medications, continue with no added salt diet. Pt has been encouraged to exercise daily. The pt has been advised to call the office if there are any acute concerns about change in blood pressure readings at home. DM-uncontrolled- discussed strict diet and exercise with patient Low lxdxyvofj-lsuiidog-soicvcjw to monitor Abd ssjv-tpcnltnm-xl changes 02/27/2017 Appointment: Rika Bello WPtel: [address] [place], [place] [phone] [place] [address] (30 min) Complex 02/27/2017 Patient Education: Patient [...] this regimen. 02/21/2017 Appointment: Rika Bello WPtel: [address] [place], [place] [phone] [place] [address] (30 min) Complex 02/21/2017 Patient Education: Patient Medication Summary Completed 02/21/2017 Appointment: Rika Bello WPtel: [address] [place], [place] [phone] [address] (30 min) Complex 02/20/2017 Visit Plan: Generalized [...] labs on Monday02/17/2017 Appointment: Rika Bello WPtel: [address] [place], [place] [phone] (30 min) Complex 02/17/2017 Patient Education: Patient Medication Summary Completed 02/17/2017 Visit Plan: COPD-recent hospitalization with pneumonia- symptoms improved-discussed continuous oxygen use at home-appt with Dr Odonnell tomorrow Afib-check digoxin level-patient just finished zpack Diarrhea-continue probiotics-check stool if diarrhea persists DM-bring log to next appt 02/13/2017 Appointment: Rika Bello WPtel: [address] [place], [place] [phone] (30 min) Complex 02/13/2017 Patient Education: Patient Medication Summary Completed 02/13/2017 Patient Education: Hypertension Completed 02/13/2017 Visit Plan: DM-very uncontrolled-refer to Dr Raines for management RIght shoulder and arm pain-fell 5 days ago-xray shoulder and arm Chronic sinusitis-RX for Dr Cervantes's compound gentamicin nasal spray 01/30/2017 Appointment: Rika Bello WPtel: [address] [place], [place] [phone] (30 min) Complex 01/30/2017 Patient Education: Patient Medication Summary Completed 01/30/2017 Care Plan: Referral Order SNOMED-CT : 222808862 Pending 01/30/2017 Visit Plan: Hypertension - well [...] every night DM-check Hgb A1C Hypothyroidism-check level Mcxefdk-oapbciafeo-dln well controlled- increase cymbalta-recommend counseling 01/16/2017 Appointment: Rika Bello WPtel: [address] [place], [place] [phone] (30 min) Complex 01/16/2017 Patient Education: Patient Medication Summary Completed 01/16/2017 Appointment: Rika Bello WPtel: [phone] [facility] (30 min) Complex 01/10/2017 Visit Plan: Sinusitis [...] or concerns. 12/13/2016 Appointment: Arlette Skelton WPtel: [phone] [facility] (30 min) Complex 12/13/2016 Patient Education: Patient [...] completely heal. 11/11/2016 Appointment: Rika Bello WPtel: [address] [place], [place] [phone] (30 min) Complex 11/11/2016 Patient Education: Patient Medication Summary Completed 11/11/2016 Care Plan: BMI Above normal followup SELF-MGMT EDUC & TRAIN 1 PT Pending 2016 Appointment: Rika Bello WPtel: [address] [place], [place] [phone] (30 min) Complex 11/08/2016 Visit Plan: Shingles-rash scabbed-no further treatment indicated-patient to call if pain uncontrolled N/V-check labs including UA DM- check labs today Thrush-RX for nystatin 10/28/2016 Appointment: Rika Bello WPtel: [address] [place], [place] [phone] (30 min) Complex 10/28/2016 Patient Education: Patient Medication Summary Completed 10/28/2016 Patient Education: Obesity Completed 10/28/2016 Appointment: Rika Bello WPtel: [address] [place], [place] [phone] (30 min) Complex 10/25/2016 Appointment: Lab Draw 10/21/2016 Patient Education: Patient Medication Summary Completed 10/21/2016 Visit Plan: Right knee pain-patient to schedule appt with Dr Allison Garcia-right arm-concerned for shingles-RX for acyclovir provided and instructed on use-call if symptoms do not resolve or if any worse. 10/13/2016 Appointment: Rika Bello WPtel: [address] [place] [address] (30 min) Complex 10/13/2016 Patient Education: Patient Medication Summary Completed 10/13/2016 Appointment: Rika Bello WPtel: [address] [place] [address] (30 min) Complex 10/11/2016 Appointment: Rika Bello WPtel: [address] [place] [address] - Annual Wellness Visit 10/04/2016 Visit Plan: [...] as directed. 09/23/2016 Appointment: Rika Bello WPtel: [address] [place], [place] [phone] (15 min) Moderate 09/23/2016 Patient Education: Patient [...] 09/13/2016 Care Plan: Referral Order SNOMED-CT : 425442087 Pending 09/13/2016 Appointment: Rika Bello WPtel: [facility]1 [facility] [place] [address] (30 min) Complex 09/09/2016 Appointment: Rika Bello WPtel: [facility]5 [phone] (30 min) Complex 09/08/2016 Visit Plan: [...] Anemia-check CBC 08/09/2016 Appointment: Rika Bello WPtel: [phone] [phone] (30 min) Complex 08/09/2016 Patient Education: [...] control. Yeast infection -rx for nystatin powder QCXV-rijiaorue-ejulcz pneumonia -afib-patient is oxygen dependent due to severely compromised pulmonary and cardiac systems-will send orders to [facility] to continue oxygen 07/26/2016 Visit Plan: Diabetes [...] control. Yeast infection -rx for nystatin powder NPMI-bayahiagt-qxdvzo pneumonia -afib-patient is oxygen dependent due to severely compromised pulmonary and cardiac systems-will send orders to [facility] to continue oxygen 07/26/2016 Visit Plan: Diabetes [...] control. Yeast infection -rx for nystatin powder CTDN-qzncynirv-rkmnln pneumonia -afib-patient is oxygen dependent due to severely compromised pulmonary and cardiac systems-will send orders to [facility] to continue oxygen 07/26/2016 Appointment: Rika Bello WPtel: [phone] [phone] [place] (30 min) Complex 07/26/2016 Patient Education: Patient Medication Summary Completed 07/26/2016 Appointment: Rika Bello WPtel: [phone] [phone] [place] (30 min) Complex 07/22/2016 Appointment: Rika Bello WPtel: [phone] [phone] [place] (30 min) Complex 07/18/2016 Appointment: Rika Bello WPtel: [phone] [phone] (30 min) Complex 07/01/2016 Appointment: Lab Draw 06/24/2016 Patient Education: Patient Medication Summary Completed 06/24/2016 Appointment: Rika Bello WPtel: [phone] [phone] (30 min) Complex 2016 Visit Plan: Diabetes [...] Completed 05/24/2016 Appointment: Rika Bello WPtel: 1015 [phone] (30 min) Complex 05/17/2016 Visit Plan: [...] glucose control. 04/19/2016 Appointment: Rika Bello WPtel: [address] [place] [address] (30 min) Complex 04/19/2016 Patient Education: Patient Medication Summary Completed 04/19/2016 Patient Education: Obesity Completed 04/19/2016 Appointment: Rika Bello WPtel: [address] [place] [address] (30 min) Complex 04/18/2016 Visit Plan: Diabetes [...] to allow for greater blood glucose control. NRT-elpfyykhsq-on changes in medications at this time. Dysuria-UA negative-needs pelvic exam due to pt c/o vaginal discharge 04/11/2016 Appointment: Rika Bello WPtel: [address] [place] [address] (30 min) Complex 04/11/2016 Patient Education: Patient Medication Summary Completed 04/11/2016 Patient Education: Obesity Completed 04/11/2016 Appointment: Rika Bello WPtel: [address] [place] [address] (30 min) Complex 04/08/2016 Visit Plan: Chronic [...] peripheral edema. 03/11/2016 Appointment: Rika Bello WPtel: [phone] (30 min) [facility] 03/11/2016 Patient Education: Patient Medication Summary Completed [...] on use 02/26/2016 Appointment: Rika Bello WPtel: [phone] [phone] (30 min) Complex 02/26/2016 Patient Education: Patient Medication Summary Completed 02/26/2016 Appointment: Rika Bello WPtel: [phone] [phone] [place] (30 min) Complex 02/25/2016 Appointment: Rika Bello WPtel: 1015 [facility] [place] [address] (30 min) Complex 02/23/2016 Appointment: Lab Draw [...] mold 02/02/2016 Appointment: Rika Bello WPtel: 1015 [phone] [place] (30 min) Complex 02/02/2016 Patient Education: Patient Medication Summary Completed 02/02/2016 Appointment: Tessie Motta WPtel: [phone] [facility] [place] (15 min) Moderate 01/21/2016 Appointment: Rika Bello WPtel: 1015 [phone] (30 min) Complex 01/14/2016 Visit Plan: Hypertension [...] Patient Medication Summary Completed 12/17/2015 Visit Plan: Zkxkiss-sxvokuagg-eoft head injury on 12/05-did not go to ER-patient sent for STAT CT scan of head-schedule appt with Dr Dyer Adrenal insufficiency-patient suddenly stopped prednisone-instructed patient to restart and taper prednisone as directed Rib tdsg-icmgl-urxxfi fall-xray ribs 12/08/2015 Appointment: Rika Bello WPtel: 1015 [phone] (15 min) Moderate 12/08/2015 Appointment: Rika Bello WPtel: 1015 [phone] (30 min) Complex 12/08/2015 Patient Education: Patient Medication Summary Completed 12/08/2015 Care Plan: COMPLETE CBC AUTOMATED LOINC : 62739-9 Pending 12/08/2015 Visit Plan: Hypertension - well [...] 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 Mejia 10/27/2015 Appointment: Rika Bello WPtel: 1015 [facility] [place] [address] (30 min) Complex 10/27/2015 Patient Education: Patient Medication Summary Completed 10/27/2015 Patient Education: Obesity Completed 10/27/2015 Care Plan: Referral Order SNOMED-CT : 866241136 Pending 10/27/2015 Referral: Matt Pavon HPtel:[phone] [facility] Referral Initiated 10/21/2015 Visit Plan: Medicare [...] stomach pain. 09/29/2015 Appointment: Rika Bello WPtel: [phone] [facility] - Welcome to Medicare visit 09/29/2015 Patient Education: Patient Medication Summary Completed 09/29/2015 Patient Education: Obesity Completed 09/29/2015 Care Plan: Referral Order SNOMED-CT : [id number] Pending 09/29/2015 Care Plan: BMI Above normal [...] min) Complex 05/05/2015 Appointment: Rika Bello WPtel: [phone] (30 min) Complex 04/27/2015 Visit Plan: Cellulitis [...] Completed 03/03/2015 Appointment: Rika Bello WPtel: 1015 [phone] [place] (30 min) Complex 02/24/2015 Appointment: (30 min) Complex 01/29/2015 Appointment: Tessie Motta WPtel: 1015 [facility] [place] (15 min) Moderate 01/22/2015 Visit Plan: Blister of right lower leg-fluids removed with #27 gauze needle and compression dressing applied-refer to wound care for evaluation and management-patient is at high risk of developing large ulcer due to diabetes, noncompliance and poor hygiene. Rash right leg-start oral abx and bactroban as directed Ygmrm-nfzbbpwahamo-wik markie wraps, elevate leg, and again instructed [...] eating out. 01/01/2015 Appointment: Tessie Motta WPtel: [facility] (15 min) Moderate 01/01/2015 Patient Education: Patient [...] Care Plan: COMPLETE CBC AUTOMATED LOINC : 83953-2 Ordered 11/04/2014 Care Plan: URINALYSIS NONAUTO W/O SCOPE LOINC : 17028-9 Ordered 11/04/2014 Appointment: Follow up 10/07/2014 Visit Plan: Edema - pt has been advised to elevate legs to prevent dependent edema, compression has been recommended to help to naturally decrease peripheral edema. Diuretic use has been discussed and pt has been instructed in appropriate use of such medication as necessary to further attempt to reduce peripheral edema. Uamsrihfcv-yvcyttur-re change in treatment- continue compression hose-decrease salt/sodium in diet-call if symptoms worsen or do not resolve Fixlmqpsh-uwptfqo-pgwpzgtr nasonex to twice daily as directed 09/08/2014 [...] worsen. 06/12/2014 Appointment: Rika Bello WPtel: 1015 [phone] Follow up 06/12/2014 Patient Education: Patient Medication Summary Completed 06/12/2014 Patient Education: .Amazing charts Exercise for Sciatica Completed 06/12/2014 Care Plan: COMPLETE CBC AUTOMATED LOINC : 70272-3 Ordered 06/12/2014 Visit Plan: Cellulitis - continue [...] Completed 05/26/2014 Appointment: Tessie Motta WPtel: [phone] [facility] Lab Draw 04/21/2014 Patient Education: Patient Medication [...] further attempt to reduce peripheral edema. RECOMMEND SILVERIO TO HAVE LABS TODAY Right knee pain-recent [...] at home. 02/13/2014 Appointment: Tessie Motta WPtel: [address] [place] [address] Follow up 02/13/2014 Patient Education: Patient Medication [...] units daily. 01/27/2014 Appointment: Tessie Motta WPtel: [facility]5 [facility] Follow up 01/27/2014 Patient Education: Patient Medication Summary Completed 01/27/2014 Appointment: Rika Bello WPtel: [address] [place], [place] [phone] Follow up 01/02/2014 Visit Plan: Open wound of rzg-vnyrtgeb-sousdrfi with dressing changes as directed-call for increase [...] Summary Completed 12/26/2013 Appointment: Tessie Motta WPtel: [address] [place], [place] [phone] Follow up 12/24/2013 Visit Plan: Open wound of right leg-debrided today in the office-instructed on wound care-follow up as directed. Call with any questions, concerns, or worsening symptoms. Culture of wound today in the office-RX for abx sent to patient's pharmacy and instructed on use. Patient verbalized understanding of plan. 12/12/2013 Appointment: Rika Bello WPtel: [address] [place] [phone] Other 12/12/2013 Patient Education: Patient Medication Summary Completed 12/12/2013 Appointment: Tessie Motta WPtel: [address] [place], [place] [phone] Follow up 11/20/2013 Visit Plan: negative ua 11/18/2013 Appointment: Tessie Motta WPtel: [address] [place], [place] [phone] Lab Draw 11/18/2013 Patient Education: Patient Medication [...] Completed 11/14/2013 Visit Plan: Open wound right mrk-gwglta-unan if opens up Edema - pt has been advised to elevate legs to prevent dependent edema, compression has been recommended to help to naturally decrease peripheral edema. Diuretic use has been discussed and pt has been instructed in appropriate use of such medication as necessary to further attempt to reduce peripheral edema. 10/21/2013 Appointment: Rika Bello WPtel: [facility]5 [phone] Follow up 10/21/2013 Patient Education: Patient Medication Summary Completed 10/21/2013 Appointment: Rika Bello WPtel: [facility]5 [phone] Follow up 10/17/2013 Appointment: Tessie Motta WPtel: [facility]5 [facility] Follow up 10/10/2013 Visit Plan: Hypertension - [...] hours as needed for pain. 10/03/2013 Appointment: Ace Rika WPtel: [phone] [facility] Follow up 10/03/2013 Patient Education: Patient Medication [...] of plan. 09/23/2013 Appointment: Tessie Motta WPtel: [phone] [facility] [facility] Visit 09/23/2013 Patient Education: Patient Medication [...] 2 WEEKS. 09/20/2013 Appointment: Rika Bello WPtel: [facility]5 [phone] Follow up 09/20/2013 Patient Education: Patient Medication Summary Completed 09/20/2013 Patient Education: Hypertension Completed 09/20/2013 Appointment: Tessie Motta WPtel: [facility]5 [facility] Follow up 09/16/2013 Visit Plan: Edema - [...] verbalized understanding. 09/10/2013 Appointment: Rika Bello WPtel: [facility]5 [phone] Other 09/10/2013 Patient Education: Patient Medication Summary Completed 09/10/2013 Appointment: Rika Bello WPtel: [facility]5 [phone] Follow up 09/02/2013 Visit Plan: Diabetes Mellitus [...] peripheral edema. 08/19/2013 Appointment: Rika Bello WPtel: [address] [place] [phone] [facility] 08/19/2013 Patient Education: Patient Medication Summary Completed [...] as scheduled 08/01/2013 Appointment: Rika Bello WPtel: [address] [place], [place] [phone] [place] [address] Follow up 08/01/2013 Patient Education: Patient Medication Summary Completed 08/01/2013 Appointment: Rika Bello WPtel: [address] [place], [place] [phone] Follow up 07/25/2013 Appointment: Kalia Tessie WPtel: [address] [place], [place] [phone] Follow up 07/25/2013 Visit Plan: Bister of foot-dressing changes discussed with patient and instructed her to keep her foot clean and dry-STOP WEARING FLIP FLOPS as they are causing friction over blistered area. Keep follow up appointment as scheduled. Call for redness, drainage or other s/s of infection. 07/19/2013 Appointment: Rika Bello WPtel: [facility]1 [facility] [place] [address] Other 07/19/2013 Patient Education: Patient Medication Summary [...] peripheral edema. 07/15/2013 Appointment: Rika Bello WPtel: [address] [place], [place] [phone] [place] Other 07/15/2013 Patient Education: Patient Medication Summary Completed 07/15/2013 Patient Education: Hypertension Completed 07/15/2013 Appointment: Rika Bello WPtel: [address] [place], [place] [phone] Follow up 07/01/2013 Appointment: Rkia Bello WPtel: [address] [place], [place] [phone] Lab Draw 06/28/2013 Patient Education: Patient Medication [...] 900mg tid. 06/27/2013 Appointment: Tessie Motta WPtel: [address] [place], [place] [phone] Other 06/27/2013 Patient Education: Patient Medication Summary Completed 06/27/2013 Appointment: Tessie Motta WPtel: [facility]5 [facility] Other 06/24/2013 Visit Plan: Diabetes Mellitus - [...] THE AFTERNOON. 06/10/2013 Appointment: Tessie Motta WPtel: [address] [place] [address] Follow up 06/10/2013 Patient Education: Patient Medication Summary Completed 06/10/2013 Appointment: Tessie Motta WPtel: [address] [place] [address] Follow up 06/06/2013 Visit Plan: Sinusitis - [...] acutely worsen. 05/07/2013 Appointment: Tessie Motta WPtel: [facility]4 [place] [phone] Follow up 05/07/2013 Patient Education: Patient Medication Summary Completed 05/07/2013 Appointment: Tessie Motta WPtel: [address] [place] [address] Follow up 04/30/2013 Visit Plan: Edema - [...] acute changes. 04/16/2013 Appointment: Tessie Motta WPtel: [address] [place], [place] [phone] Follow up 04/16/2013 Patient Education: Patient Medication Summary Completed 04/16/2013 Appointment: Tessie Motta WPtel: [phone] [facility] Follow up 04/04/2013 Visit Plan: Lumbago-continue physical [...] peripheral edema. 03/21/2013 Appointment: Rika Bello WPtel: [phone] Follow up 03/21/2013 Patient Education: Patient Medication Summary Completed 03/21/2013 Appointment: Tessie Motta WPtel: [phone] [facility] Follow up 03/20/2013 Appointment: Tessie Motta WPtel: [phone] [facility] Follow up 03/05/2013 Visit Plan: Edema-significantly improved- [...] controlled. 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 02/04/2013 Appointment: Tessie Motta WPtel: [phone] [facility] Follow up 02/04/2013 Patient Education: Patient Medication [...] not improve. 01/17/2013 Appointment: Rika Bello WPtel: [facility]5 [phone] Follow up 01/17/2013 Patient Education: Patient Medication Summary Completed 01/17/2013 Patient Education: Hypertension Completed 01/17/2013 Appointment: Tessie Motta WPtel: [address] [place], [place] [id number] Follow up 01/16/2013 Appointment: Tessie Motta WPtel: [address] [place], [place] [address] Follow up 01/10/2013 Appointment: Rika Bello WPtel: [address] [place], [place] [phone] Lab Draw 01/01/2013 Patient Education: Patient Medication [...] Hypothyroidism-check labs 12/31/2012 Appointment: Rika Bello WPtel: [facility]5 [phone] Follow up 12/31/2012 Appointment: Rika Bello WPtel: [facility]5 [phone] Sick 12/31/2012 Patient Education: Patient Medication [...] Check labs. 12/20/2012 Appointment: Rika Bello WPtel: [address] [place], [place] [id number] [place] [address] 12/20/2012 Patient Education: Patient Medication Summary Completed 12/20/2012 Patient Education: Hypertension Completed 12/20/2012 Appointment: Tessie Motta WPtel: [address] [place] [address] Lab Draw 11/05/2012 Patient Education: Patient Medication Summary Completed 11/05/2012 Visit Plan: Bronchitis - acute case of bronchitis identified. Pt has been given antibiotics, breathing treatments as appropriate, and pt has been instructed to call if symptoms are not improved, or if symptoms acutely worsen. 10/29/2012 Appointment: Tessie Motta WPtel: [address] [place], [place] [address] Sick 10/29/2012 Patient Education: Patient Medication Summary Completed 10/29/2012 Visit Plan: Joint Injection-left SI joint - Pt was given post - injection instructions. The pt has been advised to use antiinflammatories post injection today, ice to the injected site, call if redness, warmth, or increased pain occurs at the site of injection. 09/21/2012 Appointment: Rika [facility]ello WPtel: [phone] Follow up 09/21/2012 Patient Education: Patient Medication [...] control. 09/06/2012 Appointment: [phone] [facility] 09/06/2012 Patient Education: Patient Medication [...] readings are starting to become less controlled. Wjmlydsr-ydzyniyw-ylgmtilr probiotic-continue to hold metformin and repeat labs before appt in 2 weeks. Call for abd pain, worsening diarrhea, or other concerns. 08/23/2012 Appointment: [facility]Ptel[facility] Follow [facility] 08/23/2012 Patient Education: Patient Medication [...] OF PLAN. 08/13/2012 Appointment: Rika Bello WPtel: [phone] Follow up 08/13/2012 Patient Education: Patient Medication [...] acute concerns. 08/07/2012 Appointment: Rika Bello WPtel: [facility] [address] Other 08/07/2012 Patient Education: Patient Medication Summary Completed 08/07/2012 Patient Education: Hypertension Completed 08/07/2012 Visit Plan: UA-sent for culture 07/19/2012 Appointment: Rika Bello WPtel: [address] [place] [address] Lab Draw 07/19/2012 Patient Education: Patient Medication [...] as directed 07/06/2012 Appointment: Rika Bello WPtel: [address] [place], [place] [phone] [facility] 07/06/2012 Patient Education: Patient Medication Summary [...] today 06/07/2012 Appointment: Tessie Motta WPtel: [phone] [facility] Follow up 06/07/2012 Appointment: Tessie Motta WPtel: [phone] [facility] Follow up 06/07/2012 Patient Education: Patient Medication [...] 10 days. 05/28/2012 Appointment: Rika Bello WPtel: [facility]5 [phone] Follow up 05/28/2012 Patient Education: Patient [...] edema. 05/17/2012 Appointment: Rika Bello WPtel: [address] [phone] Follow UP 05/17/2012 Patient Education: Patient Medication [...] the office 05/02/2012 Appointment: Tessie Motta WPtel: [facility]5 [facility] Follow up 05/02/2012 Patient Education: Patient Medication Summary Completed 05/02/2012 Patient Education: Hypertension Completed 05/02/2012 Appointment: Tessie Motta WPtel: [facility]5 [facility] Follow up 04/25/2012 Visit Plan: Sinusitis [...] acute concerns. 04/10/2012 Appointment: Rika Bello WPtel: [facility]6 [address] Follow up 04/10/2012 Patient Education: Patient Medication [...] I&D on Monday02/27/2012 Appointment: Rika Bello WPtel: [facility]4 [place] [phone] [place] Follow up 02/27/2012 Patient Education: Patient Medication [...] to thighs. 02/15/2012 Appointment: Rika Bello WPtel: [facility]9 [phone] Follow up 02/15/2012 Patient Education: Patient [...] toes to thighs. [facility] xray at the hospital as [...] of urine. 02/01/2012 Appointment: Rika Bello WPtel: [facility]9 [phone] [place] Other 02/01/2012 Patient Education: Patient Medication Summary [...] buttocks 12/14/2011 Appointment: Tessie Motta WPtel: [phone] [facility] [place] Other 12/14/2011 Patient Education: Patient Medication Summary Completed 12/14/2011 Appointment: Tessie Motta WPtel: [phone] [facility] Follow up 12/08/2011 Visit Plan: N/V/D - [...] controlled. 11/30/2011 Appointment: Rika Bello WPtel: 1015 [phone] [place] Other 11/30/2011 Patient Education: Patient Medication [...] pain. 11/17/2011 Appointment: Tessie [facility]ta [facility]Ptel: [phone] [facility] 11/17/2011 Patient Education: Patient Medication Summary [...] - uncontrolled - will consult her primary sales producer for assistance with control her her heart rate. Ulcer of toe - continue with topical antibiotics as previously directed, return to clinic as previously directed, call for acute change in symptoms, worsening redness, warmth, discharge. 11/03/2011 Appointment: Tessie Motta WPtel: [phone] Other 11/03/2011 Patient Education: Patient Medication Summary [...] warmth, discharge. 10/24/2011 Appointment: Tessie Motta WPtel: [address] [place] [address] Other 10/24/2011 Patient Education: Patient Medication Summary [...] her recently diagnosed with lymphoma. 09/26/2011 Appointment: Ace Rika WPtel: [address] [place] [address] [place] [address] Other 09/26/2011 Patient Education: Patient Medication Summary [...] Hypertension Completed 2011 Appointment: Tessie Motta WPtel: [address] [place] [address] Other 09/05/2011 Visit Plan: Sinusitis - Pt [...] the medication. 09/01/2011 Appointment: Tessie Motta WPtel: [address] [place] [address] Other 09/01/2011 Patient Education: Patient Medication Summary Completed 09/01/2011 Visit Plan: Sinusitis - continue with ciprofloxacin and start on corcidin HBP. Anxiety - start the xanax 0.5mg 1/2 pill twice daily. 08/15/2011 Appointment: Tessie Motta WPtel: [facility]6 [facility] Other 08/15/2011 Appointment: KaliaBingy WPtel: [facility]2 [facility] Other 08/15/2011 Patient Education: Patient Medication Summary [...] the hospital. 08/09/2011 Appointment: Rika Bello WPtel: [facility]8 [phone] [place] Other 08/09/2011 Patient Education: Patient Medication [...] not resolve 08/01/2011 Appointment: Rika Bello WPtel: [phone] Other 08/01/2011 Patient Education: Patient Medication Summary Completed 08/01/2011 Appointment: Rika Bello WPtel: [facility]3 [place] [address] [place] Other 07/26/2011 Appointment: Tessie Motta WPtel: [facility]6 [address] Other 07/18/2011 Visit Plan: Diabetes Mellitus - [...] management sparingly. 06/20/2011 Appointment: Tessie Motta WPtel: [facility]3 [place] [address] [place] Other 06/20/2011 Patient Education: Patient Medication Summary [...] 1 month. 04/18/2011 Appointment: Tessie Motta WPtel: [facility] Other 04/18/2011 Patient Education: Patient Medication Summary Completed 04/18/2011 Patient Education: High Blood Pressure: Essential Hypertension Completed 2010 Appointment: Tessie Motta WPtel: [address] [place] [address] Other 04/12/2011 Appointment: Tessie Motta WPtel: [address] [place] [address] Other 02/16/2011 Referral: Matt Pavon HPtel:[phone] Referral Initiated Referral: Yareli Raines Referral [...] change in symptoms, worsening redness, warmth, discharge. Ciqvdrie-kryvrkfdevfl-lnegz labs today-patient has been given orders multiple [...] symptoms are not controlled with the medication. WOUND CARE EVALUATION KEEP BLISTER CLEAN AND [...] leg-start oral abx and bactroban as directed Jgcat-ldtdxefcpyhs-mqr markie wraps, elevate leg, and again instructed [...] drainage or other s/s of infection. . Ect-axvngflxlz-mi changes Anemia-check cbc today Dental infection-on clindamycin [...] change in blood pressure readings at home. AQ-qegcvszwrmgi-gloygpblu strict diet and exercise with patient Low azjvvwwle-kihmmzqz-yneeryqj to monitor Abd equs-vyzxoybg-ax changes FOR CHOLESTEROL - THE NEW DOSE [...] readings are starting to become less controlled. Cwdsasiu-unnimbbg-pulvpfoa probiotic-continue to hold metformin and repeat labs [...] HTN-elevated today-monitor at home -follow up with sales producer . Open wound of nic-alopyyjw-ebjkqkfo with dressing changes as directed-call for increase [...] symptom management sparingly. . Open wound right xfi-zzylpp-yvqu if opens up Edema - pt has been advised to elevate legs to prevent dependent edema, compression has been recommended to help to naturally decrease peripheral edema. Diuretic use has been discussed and pt has been instructed in appropriate use of such medication as necessary to further attempt to reduce peripheral edema. . Rwvoomm-vphlnqpsm-djqo head injury on 12/05-did not go to ER-patient sent for STAT CT scan of head-schedule appt with Dr Dyer Adrenal insufficiency-patient suddenly stopped prednisone-instructed patient to restart and taper prednisone as directed Rib ekue-pmgfb-ppwcvn fall-xray ribs START CHECKING BLOOD SUGARS!!!! BRING [...] to allow for greater blood glucose control. PZA-ryspdaldiu-gu changes in medications at this time. Dysuria-UA [...] - uncontrolled - will consult her primary sales producer for assistance with control her her heart [...] with results.Patient and verbalized understanding of plan. HWC-xohawwdxwep-ffoco labs-monitor blood pressure and heart rate closely- [...] a prescription for cipro and flagyl to [facility]. Start it today. . Sinusitis - Pt [...] for diflucan-call if symptoms do not resolve Dunnegan balm over the counter for the knee. [...] to further attempt to reduce peripheral edema. [place]-xjaoesri-xv change in treatment-continue compression hose-decrease salt/sodium in diet-call if symptoms worsen or do not resolve Djeoveeod-iegqife-hfwcxwfc nasonex to twice daily as directed pt [...] to reduce peripheral edema. Check labs. . ER follow up - Dr. Motta in to see pt - pt was given a script for a fpc prednisone taper - pt has not started [...] knee pain-patient to schedule appt with Dr Cooper Rash-right arm-concerned for shingles-RX for acyclovir provided and [...] UNITS Q HS RESCHEDULE APPT WITH DR ASPEN HoWauhvkghj-ctqxpfpcd-kp for bactroban ointment provided and instructed on use FWV-mdkxgwwujk-eu change in medications Mildly elevated liver enzymes-discussed [...] Dyspnea - recommended pt to see new specialty food products supervisor when he gets to town for further evaluation and work-up. refer to [...] a prescription for lasix and potassium to [facility]. Take 2 TABLETS of LASIX and 2 [...] toes to thighs. RX sent to patient's [facility]. Chest xray at the hospital as well. [...] control. Yeast infection -rx for nystatin powder OQGZ-hynqggqkk-zdguip lxucemabf-ntlz-qhbqpvg is oxygen dependent due to severely compromised pulmonary and cardiac systems-will send orders to [facility] to continue oxygen . Diabetes Mellitus - [...] control. Yeast infection -rx for nystatin powder VBUB-xuzfvcnhi-swgeyu mffstneiu-injx-iibpste is oxygen dependent due to severely compromised pulmonary and cardiac systems-will send orders to [facility] to continue oxygen . Diabetes Mellitus - [...] control. Yeast infection -rx for nystatin powder VOGT-axhfytgjx-nnbfvz jgogsztop-cybs-qzprmrk is oxygen dependent due to severely compromised pulmonary and cardiac systems-will send orders to [facility] to continue oxygen . 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 Diabetes Mellitus - ucontrolled- I [...] to become less controlled. Low potassium-check labs JPQ-tnahctzuxs-jl changes Afib-check digoxin level with labs Abdominal pain-refill levsin for prn use -call if pain uncontrolled DR Yareli Raines-you need to reschedule your appt with her -she is a windows server specialist . Diabetes Mellitus - ucontrolled- I [...] to become less controlled. Low potassium-check labs LTE-pjpmtvvtii-rq changes Afib-check digoxin level with labs Abdominal [...] PAIN MANAGEMENT FOR INJECTIONS STOP BY [employer] FOR NEW CPAP SUPPLIES . Hypertension - [...] every night DM-check Hgb A1C Hypothyroidism-check level Oqfvvnl-bdurwqowya-wyw well controlled-increase cymbalta-recommend counseling . Diabetes Mellitus [...] she needs to...RESCHEDULE APPT WITH DR RAINES QEO-flkwmlgttu-sg change in medications CPAP NEBULIZER CHECK UA [...]
--- OUTSIDE RECORDS SUMMARY | 2018-06-04 13:32 | XMS REPORT | CCD ---
Author Author [facility]ie [facility] Organization [facility] Address [address] [place] [address] Phone Care Team Providers Care Photo Technician Name Role Phone Tessie Motta PP Unavailable CCM Unavailable Summary Purpose Interface Exchange Insurance Providers Payer name Policy type / Coverage type Covered democrat ID Effective Begin Date Effective End Date WPS Medicare Part B Medicare Part B [id number] 2015 Unknown [facility] Medicare Part B [id number] Unknown Family history Son Diagnosis Age At [...] College Graduate 08/21/[address]: 450503152 Never smoker 02/11/[address]: 716315641 Never drinks alcohol 02/11/2011 Has the patient ever used illegal drugs? Unknown Has never used illegal drugs 02/11/2011 Allergies, Adverse Reactions, Alerts Substance Reaction Codes Entered Date Inactivated Date Status CODEINE RxNorm: 2670 02/11/2011 No Inactive Date Active * NO KNOWN FOOD ALLERGIES Unknown 02/01/2012 No Inactive Date Active cefdinir RxNorm: 19786 08/07/2012 No Inactive Date Active PENICILLINS Unknown [...] Start Date Stop Date Status Fill Instructions nystatin 100,000 unit/mL oral suspension RxNorm: 233633 Unit(s) 5 Milliliter(s) PO QID swish and swallow 05/07/20182017 Active Tessalon Perles 100 mg capsule RxNorm: 575339 Capsule(s) Capsule(s) 2 Capsule(s) PO TID as needed 05/03/2018 No Stop Date Active Percocet 10 mg-325 mg tablet RxNorm: 6068350 1-2 Tablet(s) PO Q6 PRN 05/03/2018 05/17/2018 Active FreeStyle Test strips RxNorm: USE ONE STRIP TO CHECK GLUCOSE 4 TIMES DAILY 04/30/2018 No Stop Date Active promethazine 25 mg tablet RxNorm: 753495 Tablet(s) 1 Tablet(s) PO Q6 PRN TAKE NEEDED ONLY!!! 04/27/2018 No Stop Date Active digoxin 125 mcg tablet RxNorm: 657468 TAKE 1 TABLET BY MOUTH ONCE DAILY 04/23/2018 No Stop Date Active Lasix 40 mg tablet RxNorm: 995822 TAKE 1 TABLET BY MOUTH TWICE DAILY 04/19/2018 No Stop Date Active Vitamin D2 50,000 unit capsule RxNorm: 2758975 1 Capsule(s) PO QW 04/17/2018 06/15/2018 Active Tessalon Perles 100 mg capsule RxNorm: 211834 Capsule(s) Capsule(s) 2 Capsule(s) PO TID as needed 04/17/2018 05/02/2018 Inactive Xanax 0.5 mg tablet RxNorm: 297111 1 Tablet(s) BID as needed 04/09/2018 05/08/2018 Active Percocet 10 mg-325 mg tablet RxNorm: 6485227 1-2 Tablet(s) PO Q6 PRN 04/05/2018 04/19/2018 Inactive colestipol 1 gram tablet RxNorm: 3379165 TAKE ONE TABLET BY MOUTH TWICE DAILY 03/30/2018 No Stop Date Active Tessalon Perles 100 mg capsule RxNorm: 668051 Capsule(s) Capsule(s) 2 Capsule(s) PO TID as needed 03/21/2018 04/16/2018 Inactive nystatin 100,000 unit/mL oral suspension RxNorm: 189616 Unit(s) 5 Milliliter(s) PO QID swish and swallow 03/21/20182017 Inactive Xanax 0.5 mg tablet RxNorm: 875231 Tablet(s) BID as needed 04/09/2018 Inactive Slow Fe 47.5 mg iron tablet,extended release RxNorm: 1 Tablet(s) PO every other day 03/12/2018 04/10/2018 Inactive Percocet 10 mg-325 mg tablet RxNorm: 3710900 1-2 Tablet(s) PO Q6 PRN 03/12/2018 03/26/2018 Inactive Slow Fe 47.5 mg iron tablet,extended release RxNorm: 1 Tablet(s) PO 3 x week 02/28/2018 03/11/2018 Inactive promethazine 25 mg tablet RxNorm: 345120 Tablet(s) 1 Tablet(s) PO Q6 PRN TAKE NEEDED ONLY!!! 02/21/2018 04/26/2018 Inactive gabapentin 600 mg tablet RxNorm: 880535 Tablet(s) TAKE ONE & ONE-HALF TABLETS BY MOUTH THREE TIMES DAILY 02/20/20182018 Active Cymbalta 60 mg capsule,delayed release RxNorm: 072733 1 Capsule(s) PO daily take with 30mg tablet 02/20/2018 08/18/2018 Active Cymbalta 30 mg capsule,delayed release RxNorm: 793960 Capsule(s) TAKE ONE CAPSULE BY MOUTH ONCE DAILY - TAKE WITH THE 60 MG DOSE FOR A TOTAL OF 90 MG 02/20/2018 08/18/2018 Active Vitamin D2 50,000 unit capsule RxNorm: 6629168 1 Capsule(s) PO QW 02/20/2018 02/19/2018 Inactive Vitamin D2 50,000 unit capsule RxNorm: 9222990 1 Capsule(s) PO QW 02/20/2018 04/16/2018 Inactive mupirocin 2 % topical ointment RxNorm: 782090 APPLY TO SORE IN BELLY BUTTON TWICE DAILY 02/15/2018 No Stop Date Active Percocet 10 mg-325 mg tablet RxNorm: 5816542 1-2 Tablet(s) PO Q6 PRN 02/14/2018 02/28/2018 Inactive Jerry Marley U-300 Insulin 300 unit/mL (1.5 mL) subcutaneous pen RxNorm: 5026355 40 Unit(s) SQ BID per dr raines 02/07/2018 03/08/2018 Inactive nystatin 100,000 unit/mL oral suspension RxNorm: 416556 5 Milliliter(s) PO QID swish and swallow 02/02/2018 02/11/2018 Inactive mupirocin 2 % topical ointment RxNorm: 582418 1 Application TOP BID 01/30/2018 02/08/2018 Inactive Tessalon Perles 100 mg capsule RxNorm: 954963 Capsule(s) 2 Capsule(s) PO TID as needed 01/23/2018 03/20/2018 Inactive Xanax 0.5 mg tablet RxNorm: 683937 Tablet(s) TAKE ONE TABLET BY MOUTH THREE TIMES DAILY NEEDED 01/17/20182017 Inactive ropinirole 1 mg tablet RxNorm: 033323 1 Tablet(s) PO BID 201705/10/2018 Active digoxin 125 mcg tablet RxNorm: 134055 1 Tablet(s) PO daily 04/22/2018 Inactive Percocet 10 mg-325 mg tablet RxNorm: 0195042 1-2 Tablet(s) PO Q6 PRN 01/04/2018 01/18/2018 Inactive Percocet 10 mg-325 mg tablet RxNorm: 2138441 1-2 Tablet(s) PO Q6 PRN 01/02/2018 01/03/2018 Inactive promethazine 25 mg tablet RxNorm: 884852 Tablet(s) 1 Tablet(s) PO Q6 PRN TAKE NEEDED ONLY!!! 01/02/2018 02/20/2018 Inactive pantoprazole 40 mg tablet,delayed release RxNorm: 252527 TAKE 1 TABLET BY MOUTH ONCE DAILY 12/25/2017 No Stop Date Active mupirocin 2 % topical ointment RxNorm: 258014 1 Application TOP BID 12/22/2017 12/31/2017 Inactive fluconazole 150 mg tablet RxNorm: 820732 1 Tablet(s) PO every other day x 3 doses 12/14/2017 12/23/2017 Inactive Percocet 10 mg-325 mg tablet RxNorm: 8746482 1-2 Tablet(s) PO Q6 PRN 12/13/2017 12/27/2017 Inactive hyoscyamine 0.125 mg sublingual tablet RxNorm: 2866052 Tablet(s) 1 Tablet(s) SL TID as needed 12/13/2017 04/11/2018 Inactive nystatin 100,000 unit/gram topical powder RxNorm: 108661 APPLY POWDER TOPICALLY 4 TIMES DAILY 12/11/2017 No Stop Date Active Xanax 0.5 mg tablet RxNorm: 441833 Tablet(s) TAKE ONE TABLET BY MOUTH THREE TIMES DAILY NEEDED 12/06/20172017 Inactive nitrofurantoin 50 mg capsule RxNorm: 685582 1 Capsule(s) PO BID 12/01/2017 11/30/2017 Inactive take probiotic BID x 7 days nitrofurantoin 50 mg capsule RxNorm: 855593 1 Capsule(s) PO BID 12/01/2017 12/07/2017 Inactive take probiotic BID x 7 days mupirocin 2 % topical ointment RxNorm: 538028 1 Application TOP BID 11/27/2017 12/06/2017 Inactive Tessalon Perles 100 mg capsule RxNorm: 230510 Capsule(s) 2 Capsule(s) PO TID as needed 11/21/2017 01/22/2018 Inactive nystatin 100,000 unit/mL oral suspension RxNorm: 233546 5 Milliliter(s) PO QID swish and swallow 11/17/2017 11/26/2017 Inactive nystatin 100,000 unit/mL oral suspension RxNorm: 507318 5 Milliliter(s) PO QID swish and swallow 11/17/2017 11/16/2017 Inactive Toprol XL 100 mg tablet,extended release RxNorm: 970968 TAKE ONE TABLET BY MOUTH TWICE DAILY 11/15/2017 No Stop Date Active ropinirole 1 mg tablet RxNorm: 854619 Tablet(s) BID 11/14/2017 01/10/2018 Inactive Diflucan 150 mg tablet RxNorm: 501700 Tablet(s) every other day 1 Tablet(s) PO every other day 11/14/2017 11/16/2017 Inactive Percocet 10 mg-325 mg tablet RxNorm: 8608924 1-2 Tablet(s) PO Q6 PRN 11/09/2017 11/23/2017 Inactive Flonase Allergy Relief 50 mcg/actuation nasal spray, suspension RxNorm: 0449348 2 [place] NASAL daily 11/06/20172017 Inactive cyclobenzaprine 10 mg tablet RxNorm: 022900 Tablet(s) TABLET(S) 1 TABLET(S) PO NEEDED TAKE 1 TABLET BY MOUTH EVERY 8 HOURS NEEDED 2017 No Stop Date Active Cymbalta 30 mg capsule,delayed release RxNorm: 066938 TAKE ONE CAPSULE BY MOUTH ONCE DAILY - TAKE WITH THE 60 MG DOSE FOR A TOTAL OF 90 MG 02/19/2018 Inactive Lantus Solostar U-100 Insulin 100 unit/mL (3 mL) subcutaneous pen RxNorm: 939138 Unit(s) SQ 35 units QAM and 55 units QHS Unit(s) SQ 10/27/2017 02/07/2018 Inactive Wants insulin pens Percocet 10 mg-325 mg tablet RxNorm: 8199234 1-2 Tablet(s) PO Q6 PRN 10/27/2017 11/08/2017 Inactive promethazine 25 mg tablet RxNorm: 235841 Tablet(s) 1 Tablet(s) PO Q6 PRN TAKE NEEDED ONLY!!! 10/27/2017 01/01/2018 Inactive Xanax 0.5 mg tablet RxNorm: 651159 Tablet(s) TAKE ONE TABLET BY MOUTH THREE TIMES DAILY 10/20/2017 04/08/2018 Inactive Tessalon Perles 100 mg capsule RxNorm: 814809 Capsule(s) 2 Capsule(s) PO TID as needed 10/19/2017 11/20/2017 Inactive Diflucan 150 mg tablet RxNorm: 256698 1 Tablet(s) PO every other day 10/15/2017 11/13/2017 Inactive Percocet 10 mg-325 mg tablet RxNorm: 6162421 1-2 Tablet(s) PO Q6 PRN 10/06/2017 10/20/2017 Inactive pantoprazole 40 mg tablet,delayed release RxNorm: 531461 1 Tablet(s) PO BID 10/03/2017 03/31/2018 Inactive Cymbalta 60 mg capsule,delayed release RxNorm: 119651 TAKE ONE CAPSULE BY MOUTH ONCE DAILY 09/21/2017 02/19/2018 Inactive Diflucan 150 mg tablet RxNorm: 868200 1 Tablet(s) PO every other day 09/15/2017 09/19/2017 Inactive hyoscyamine 0.125 mg sublingual tablet RxNorm: 2206754 1 Tablet(s) SL TID as needed 09/08/2017 12/12/2017 Inactive Lantus Solostar U-100 Insulin 100 unit/mL (3 mL) subcutaneous pen RxNorm: 635466 Unit(s) SQ 35 units QAM and 55 units QHS Unit(s) SQ 09/06/2017 09/20/2017 Inactive Wants insulin pens Lasix 40 mg tablet RxNorm: 241334 TAKE ONE TABLET BY MOUTH TWICE DAILY 08/25/2017 04/18/2018 Inactive ropinirole 1 mg tablet RxNorm: 382717 TAKE ONE TABLET BY MOUTH AT BEDTIME 08/25/2017 11/13/2017 Inactive Lantus U-100 Insulin 100 unit/mL subcutaneous solution RxNorm: 122121 35 units QAM and 55 units QHS Unit(s) SQ 08/21/2017 09/05/2017 Inactive Tessalon Perles 100 mg capsule RxNorm: 639781 Capsule(s) 2 Capsule(s) PO TID as needed 08/18/2017 10/18/2017 Inactive Percocet 10 mg-325 mg tablet RxNorm: 8073991 1-2 Tablet(s) PO Q6 PRN 08/16/2017 08/30/2017 Inactive pantoprazole 40 mg tablet,delayed release RxNorm: 648833 TAKE ONE TABLET BY MOUTH TWICE DAILY 08/14/2017 08/13/2017 Inactive pantoprazole 40 mg tablet,delayed release RxNorm: 342540 1 Tablet(s) PO daily 08/14/2017 10/02/2017 Inactive promethazine 25 mg tablet RxNorm: 438504 Tablet(s) 1 Tablet(s) PO Q6 PRN TAKE NEEDED ONLY!!! 08/11/2017 10/26/2017 Inactive omeprazole 20 mg capsule,delayed release RxNorm: 852634 1 Capsule(s) PO daily TAKE 1 CAPSULE BY MOUTH ONCE DAILY 08/07/2017 10/26/2017 Inactive nystatin 100,000 unit/mL oral suspension RxNorm: 066445 5 Milliliter(s) PO QID swish and swallow 08/07/2017 08/16/2017 Inactive mupirocin 2 % topical ointment RxNorm: 858754 APPLY TO SORE IN BELLY BUTTON TWICE DAILY 08/07/2017 02/14/2018 Inactive omeprazole 20 mg capsule,delayed release RxNorm: 732601 1 Capsule(s) PO BID TAKE 1 CAPSULE BY MOUTH TWICE DAILY 08/03/2017 08/06/2017 Inactive Diflucan 150 mg tablet RxNorm: 874752 1 Tablet(s) PO daily 08/05/2017 Inactive hyoscyamine 0.125 mg sublingual tablet RxNorm: 7738936 1 Tablet(s) SL TID as needed 08/03/2017 09/01/2017 Inactive gentamicin 0.3 % eye drops RxNorm: 939461 2 Drop(s) ophthalmic (eye) TID 08/03/2017 08/09/2017 Inactive Levaquin 500 mg tablet RxNorm: 925552 1 Tablet(s) PO every other day x3 doses 07/27/2017 08/02/2017 Inactive gentamicin 0.3 % eye drops RxNorm: 685066 2 Drop(s) ophthalmic (eye) TID 07/27/2017 08/02/2017 Inactive dicyclomine 10 mg capsule RxNorm: 215352 1 Capsule(s) PO TID 08/02/2017 Inactive Levaquin 500 mg tablet RxNorm: 203880 1 Tablet(s) PO daily 12/201707/26/2017 Inactive Lantus U-100 Insulin 100 unit/mL subcutaneous solution RxNorm: 919161 INJECT 35 UNITS SUBCUTANEOUSLY IN THE MORNING AND 55 UNITS AT BEDTIME 07/24/2017 09/05/2017 Inactive Tessalon Perles 100 mg capsule RxNorm: 830464 2 Capsule(s) PO TID as needed 07/24/2017 08/17/2017 Inactive Percocet 10 mg-325 mg tablet RxNorm: 2671102 1-2 Tablet(s) PO Q6 PRN 07/21/2017 08/04/2017 Inactive promethazine 25 mg tablet RxNorm: 721386 1 Tablet(s) PO Q6 PRN 1 Tablet(s) PO Q6 PRN 07/19/2017 07/26/2017 Inactive Cartia XT 240 mg capsule,extended release RxNorm: 121052 1 Capsule(s) PO daily 06/27/2017 06/21/2018 Active potassium chloride ER 20 mEq tablet,extended release RxNorm: 032818 Tablet(s) TAKE ONE TABLET BY MOUTH ONCE DAILY 06/21/2017 No Stop Date Active Lantus U-100 Insulin 100 unit/mL subcutaneous solution RxNorm: 733925 35 units QAM and 55 units QHS Unit(s) SQ 06/21/2017 07/20/2017 Inactive Please provide 30 day supply Percocet 10 mg-325 mg tablet RxNorm: 1723826 1-2 Tablet(s) PO Q6 PRN 06/21/2017 07/05/2017 Inactive Cartia XT 180 mg capsule,extended release RxNorm: 766306 Capsule(s) BID 06/21/2017 06/26/2017 Inactive Xanax 0.5 mg tablet RxNorm: 877855 Tablet(s) TAKE ONE TABLET BY MOUTH THREE TIMES DAILY 06/21/2017 08/19/2017 Inactive digoxin 125 mcg tablet RxNorm: 355406 1 Tablet(s) PO daily 10/18/2017 Inactive gabapentin 600 mg tablet RxNorm: 073156 Tablet(s) TAKE ONE & ONE-HALF TABLETS BY MOUTH THREE TIMES DAILY 06/21/20172017 Inactive dicyclomine 10 mg capsule RxNorm: 790605 1 Capsule(s) PO TID 07/26/2017 Inactive Lantus U-100 Insulin 100 unit/mL subcutaneous solution RxNorm: 667170 35 units QAM and 55 units QHS Unit(s) SQ 06/13/2017 06/20/2017 Inactive Please provide 30 day supply potassium chloride ER 20 mEq tablet,extended release RxNorm: 858545 TAKE ONE TABLET BY MOUTH ONCE DAILY 06/02/2017 Inactive cyclobenzaprine 10 mg tablet RxNorm: 339854 Tablet(s) TABLET(S) 1 TABLET(S) PO NEEDED TAKE 1 TABLET BY MOUTH EVERY 8 HOURS NEEDED 201711/02/2017 Inactive Tessalon Perles 100 mg capsule RxNorm: 343252 2 Capsule(s) PO TID as needed 06/01/2017 07/23/2017 Inactive promethazine 25 mg tablet RxNorm: 590304 1 Tablet(s) PO Q6 PRN 1 Tablet(s) PO Q6 PRN 05/25/2017 06/01/2017 Inactive gabapentin 600 mg tablet RxNorm: 104569 TAKE ONE & ONE-HALF TABLETS BY MOUTH THREE TIMES DAILY 05/23/2017 06/20/2017 Inactive promethazine 25 mg tablet RxNorm: 482234 1 Tablet(s) PO Q6 PRN 1 Tablet(s) PO Q6 PRN 05/19/2017 05/24/2017 Inactive Flagyl 500 mg tablet RxNorm: 332083 1 Tablet(s) PO TID 201605/26/2017 Inactive Levaquin 500 mg tablet RxNorm: 327352 1 Tablet(s) PO daily 05/16/2017 Inactive Tessalon Perles 100 mg capsule RxNorm: 722806 2 Capsule(s) PO TID as needed 05/17/2017 05/31/2017 Inactive Flagyl 500 mg tablet RxNorm: 708878 1 Tablet(s) PO TID 201605/16/2017 Inactive hyoscyamine 0.125 mg sublingual tablet RxNorm: 4347129 1 Tablet(s) SL TID as needed 05/17/2017 06/12/2017 Inactive Levaquin 500 mg tablet RxNorm: 868368 1 Tablet(s) PO daily 05/23/2017 Inactive Cymbalta 60 mg capsule,delayed release RxNorm: 696710 1 Capsule(s) PO daily take with 30mg tablet 05/16/2017 08/13/2017 Inactive Bentyl 10 mg capsule RxNorm: 375082 1 Capsule(s) PO TID as needed 05/12/2017 06/10/2017 Inactive Levsin 0.125 mg tablet RxNorm: 5537972 1 Tablet(s) PO Q4 PRN 1-2 Tablet(s) PO Q4 PRN 05/11/2017 05/11/2017 Inactive nystatin 100,000 unit/gram topical powder RxNorm: 826444 Gram(s) APPLY POWDER TOPICALLY 4 TIMES DAILY 05/11/20172017 Inactive nystatin 100,000 unit/mL oral suspension RxNorm: 839206 4 Milliliter(s) PO QID swish and swallow 05/10/2017 05/19/2017 Inactive and Monistat over the counter colestipol 1 gram tablet RxNorm: 6063636 TAKE ONE TABLET BY MOUTH TWICE DAILY 05/08/2017 03/29/2018 Inactive Lantus 100 unit/mL subcutaneous solution RxNorm: 580434 30 units QAM and 50 units QHS Unit(s) SQ 04/28/2017 05/27/2017 Inactive Please provide 30 day supply Lantus Solostar 100 unit/mL (3 mL) subcutaneous insulin pen RxNorm: 272330 Unit( s) SQ BID 04/28/2017 06/13/2017 Inactive 30 units q am and 50units at night Lantus 100 unit/mL subcutaneous solution RxNorm: 686066 30 units QAM and 50 units QHS Unit(s) SQ 04/28/2017 04/27/2017 Inactive Please provide 30 day supply Levsin 0.125 mg tablet RxNorm: 6318118 1 Tablet(s) PO Q4 PRN 1-2 Tablet(s) PO Q4 PRN 04/25/2017 05/10/2017 Inactive promethazine 25 mg tablet RxNorm: 241920 1 Tablet(s) PO Q6 PRN 1 Tablet(s) PO Q6 PRN 04/25/2017 05/02/2017 Inactive Toprol XL 100 mg tablet,extended release RxNorm: 463957 TAKE ONE TABLET BY MOUTH TWICE DAILY 04/24/2017 11/14/2017 Inactive Flagyl 500 mg tablet RxNorm: 430498 1 Tablet(s) PO TID 201604/30/2017 Inactive Levaquin 500 mg tablet RxNorm: 826435 1 Tablet(s) PO daily 05/201604/27/2017 Inactive Voltaren 1 % topical gel RxNorm: 780562 4 Gram(s) TOP QID 04/1810/14/2017 Inactive mupirocin 2 % topical ointment RxNorm: 272511 1 Application TOP BID 04/18/2017 04/27/2017 Inactive apply to sore in belly button Lantus Solostar 100 unit/mL (3 mL) subcutaneous insulin pen RxNorm: 378655 Unit( s) SQ BID 04/18/2017 04/27/2017 Inactive 20 units q am and 50units at night levothyroxine 88 mcg tablet RxNorm: 705278 1 Tablet(s) PO daily TAKE ONE TABLET BY MOUTH ONCE DAILY 04/06/2017 04/17/2017 Inactive Xanax 0.5 mg tablet RxNorm: 103162 Tablet(s) TAKE ONE TABLET BY MOUTH THREE TIMES DAILY 04/04/2017 06/02/2017 Inactive Percocet 10 mg-325 mg tablet RxNorm: 0680348 1-2 Tablet(s) PO Q6 PRN 04/04/2017 04/18/2017 Inactive cyclobenzaprine 10 mg tablet RxNorm: 875415 TAKE ONE TABLET BY MOUTH EVERY 8 HOURS NEEDED 04/03/2017 06/01/2017 Inactive potassium chloride ER 20 mEq tablet,extended release RxNorm: 899528 1 Tablet(s) PO daily 03/28/2017 06/01/2017 Inactive nystatin 100,000 unit/gram topical cream RxNorm: 609067 1 Application TOP BID 03/27/2017 04/09/2017 Inactive Levsin 0.125 mg tablet RxNorm: 6352473 1 Tablet(s) PO Q4 PRN 1-2 Tablet(s) PO Q4 PRN 03/27/2017 04/24/2017 Inactive promethazine 25 mg tablet RxNorm: 987758 1 Tablet(s) PO Q6 PRN 03/23/2017 03/29/2017 Inactive nystatin 100,000 unit/gram topical powder RxNorm: 917068 APPLY POWDER TOPICALLY 4 TIMES DAILY 03/17/2017 05/10/2017 Inactive Percocet 10 mg-325 mg tablet RxNorm: 6814345 1-2 Tablet(s) PO Q6 PRN 03/09/2017 03/23/2017 Inactive Levsin 0.125 mg tablet RxNorm: 2584565 1-2 Tablet(s) PO Q4 PRN 03/06/2017 03/26/2017 Inactive promethazine 25 mg tablet RxNorm: 791967 1 Tablet(s) PO Q6 PRN 03/06/2017 03/13/2017 Inactive potassium chloride ER 20 mEq tablet,extended release RxNorm: 529637 1 Tablet(s) PO BID 02/23/2017 03/09/2017 Inactive Levsin/SL 0.125 mg sublingual tablet RxNorm: 6194832 1-2 Tablet(s) SL Q4 PRN 02/17/2017 03/26/2017 Inactive potassium chloride ER 20 mEq tablet,extended release RxNorm: 968898 1 Tablet(s) PO BID 02/17/2017 02/21/2017 Inactive magnesium oxide 400 mg tablet RxNorm: 988450 1 Tablet(s) PO daily 02/17/2017 02/21/2017 Inactive then twice weekly thereafter Levsin 0.125 mg tablet RxNorm: 9003336 1-2 Tablet(s) PO Q4 PRN 02/17/2017 02/16/2017 Inactive promethazine 25 mg tablet RxNorm: 452609 1 Tablet(s) PO Q6 PRN 02/10/2017 03/05/2017 Inactive Percocet 10 mg-325 mg tablet RxNorm: 9977498 1-2 Tablet(s) PO Q6 PRN 02/09/2017 02/23/2017 Inactive Cymbalta 60 mg capsule,delayed release RxNorm: 068097 1 Capsule(s) PO daily take with 30mg tablet 02/06/2017 05/06/2017 Inactive Cymbalta 30 mg capsule,delayed release RxNorm: 284912 1 Capsule(s) PO daily take with 60mg tablet 02/06/2017 02/19/2018 Inactive take with 60mg=90mg Vitamin D2 50,000 unit capsule RxNorm: 128739 1 Capsule(s) PO daily 01/17/2017 01/16/2017 Inactive daily x 6 mths Tresiba FlexTouch U-100 100 unit/mL (3 mL) subcutaneous insulin pen RxNorm: 4758753 40 Unit(s) SQ daily 01/17/20172016 Inactive Tresiba FlexTouch U-100 100 unit/mL (3 mL) subcutaneous insulin pen RxNorm: 0809845 40 Unit(s) SQ daily 01/17/20172016 Inactive Vitamin D2 50,000 unit capsule RxNorm: 309635 1 Capsule(s) PO daily 01/17/2017 10/26/2017 Inactive daily x 6 mths Cymbalta 30 mg capsule,delayed release RxNorm: 074444 1 Capsule(s) PO daily 01/16/2017 02/05/2017 Inactive take with 60mg=90mg Percocet 10 mg-325 mg tablet RxNorm: 7127683 1-2 Tablet(s) PO Q6 PRN 01/13/2017 01/27/2017 Inactive gabapentin 600 mg tablet RxNorm: 079875 TAKE ONE & ONE-HALF TABLETS BY MOUTH THREE TIMES DAILY 01/10/2017 05/09/2017 Inactive Percocet 10 mg-325 mg tablet RxNorm: 5976520 1-2 Tablet(s) PO Q6 PRN 12/21/2016 01/04/2017 Inactive Xanax 0.5 mg tablet RxNorm: 011863 Tablet(s) TAKE ONE TABLET BY MOUTH THREE TIMES DAILY 12/20/2016 02/15/2017 Inactive promethazine 25 mg tablet RxNorm: 281555 1 Tablet(s) PO Q6 PRN 12/16/2016 12/18/2016 Inactive prednisone 20 mg tablet RxNorm: 947272 2 Tablet(s) PO daily 12/14/2016 Inactive prednisone 20 mg tablet RxNorm: 450034 2 Tablet(s) PO daily 03/26/2017 Inactive Eliquis 5 mg tablet RxNorm: 9883064 1 Tablet(s) PO BID 201601/11/2017 Inactive doxycycline monohydrate 100 mg tablet RxNorm: 518242 1 Tablet(s) PO BID 12/13/2016 03/26/2017 Inactive give doxycyline hyclate cyclobenzaprine 10 mg tablet RxNorm: 435230 TAKE ONE TABLET BY MOUTH EVERY 8 HOURS NEEDED 12/09/2016 12/28/2016 Inactive Cymbalta 60 mg capsule,delayed release RxNorm: 410916 TAKE ONE CAPSULE BY MOUTH ONCE DAILY 11/30/2016 02/05/2017 Inactive promethazine 25 mg tablet RxNorm: 520373 2 Tablet(s) PO Q6 PRN 11/29/2016 12/16/2016 Inactive Percocet 10 mg-325 mg tablet RxNorm: 7918971 1-2 Tablet(s) PO Q6 PRN 11/24/2016 12/08/2016 Inactive mupirocin 2 % topical ointment RxNorm: 361540 1 Application TOP BID 11/11/2016 11/24/2016 Inactive Xanax 0.5 mg tablet RxNorm: 560829 Tablet(s) TAKE ONE TABLET BY MOUTH THREE TIMES DAILY 11/11/2016 12/19/2016 Inactive Belviq 10 mg tablet RxNorm: 1867625 1 Tablet(s) PO BID 201612/10/2016 Inactive Toprol XL 100 mg tablet,extended release RxNorm: 225921 TAKE ONE TABLET BY MOUTH TWICE DAILY 11/04/2016 04/02/2017 Inactive albuterol sulfate concentrate 2.5 mg/0.5 mL solution for nebulization RxNorm: 395310 USE ONE VIAL IN NEBULIZER EVERY 4 TO 6 HOURS NEEDED 11/03/2016 11/12/2016 Inactive Percocet 10 mg-325 mg tablet RxNorm: 3712897 1-2 Tablet(s) PO Q6 PRN 10/31/2016 11/23/2016 Inactive promethazine 25 mg tablet RxNorm: 448708 2 Tablet(s) PO Q6 PRN 10/28/2016 11/28/2016 Inactive nystatin 100,000 unit/mL oral suspension RxNorm: 495052 5 Milliliter(s) PO QID 10/28/2016 11/06/2016 Inactive Levemir FlexTouch 100 unit/mL (3 mL) subcutaneous insulin pen RxNorm: 728654 45 Unit(s) SQ BID 10/28/2016 01/16/2017 Inactive 45 q am and 40 q anita cyclobenzaprine 10 mg tablet RxNorm: 147547 TAKE ONE TABLET BY MOUTH EVERY 8 HOURS NEEDED 10/21/2016 11/09/2016 Inactive Lasix 40 mg tablet RxNorm: 981172 TAKE ONE TABLET BY MOUTH TWICE DAILY 10/18/2016 04/15/2017 Inactive Percocet 10 mg-325 mg tablet RxNorm: 2967822 1-2 Tablet(s) PO Q6 PRN 10/18/2016 10/30/2016 Inactive acyclovir 400 mg tablet RxNorm: 627500 2 Tablet(s) PO QID 10/1310/22/2016 Inactive Lasix 40 mg tablet RxNorm: 976570 TAKE ONE TABLET BY MOUTH TWICE DAILY 10/10/2016 10/17/2016 Inactive ropinirole 1 mg tablet RxNorm: 263082 TAKE ONE TABLET BY MOUTH AT BEDTIME 10/10/2016 04/07/2017 Inactive nystatin 100,000 unit/mL oral suspension RxNorm: 308559 5 Milliliter(s) PO QID x 10 days 09/30/2016 10/09/2016 Inactive nystatin 100,000 unit/mL oral suspension RxNorm: 254262 5 Milliliter(s) PO QID x 10 days 09/30/2016 10/09/2016 Inactive Swish et swallow Flonase Allergy Relief 50 mcg/actuation nasal spray, suspension RxNorm: 4916138 2 [place] NASAL daily 09/23/20162016 Inactive Percocet 10 mg-325 mg tablet RxNorm: 1137147 1-2 Tablet(s) PO Q6 PRN 09/23/2016 10/17/2016 Inactive doxycycline monohydrate 100 mg tablet RxNorm: 225532 1 Tablet(s) PO BID 09/23/2016 10/02/2016 Inactive give doxycyline hyclate Levemir FlexTouch 100 unit/mL (3 mL) subcutaneous insulin pen RxNorm: 468860 40 Unit(s) SQ BID 09/15/2016 10/27/2016 Inactive nystatin 100,000 unit/gram topical powder RxNorm: 915032 1 Application TOP QID 09/13/2016 09/22/2016 Inactive Voltaren 1 % topical gel RxNorm: 607517 4 Gram(s) TOP QID 09/1303/11/2017 Inactive Anusol-HC 25 mg rectal suppository RxNorm: 1089080 1 Suppository RTL HS 09/13/2016 09/26/2016 Inactive hydrocodone 10 mg-acetaminophen 325 mg tablet RxNorm: 537677 1-2 Tablet(s) PO Q6 as needed 09/13/2016 09/22/2016 Inactive Linzess 145 mcg capsule RxNorm: 4491426 1 Capsule(s) PO daily 09/01/2016 10/26/2017 Inactive Linzess 145 mcg capsule RxNorm: 4305650 1 Capsule(s) PO daily 09/01/2016 08/31/2016 Inactive Zofran 4 mg tablet RxNorm: 975060 TAKE ONE TABLET BY MOUTH EVERY 4 TO 6 HOURS NEEDED 08/29/2016 08/02/2017 Inactive Voltaren 1 % topical gel RxNorm: 638808 4 Gram(s) TOP QID 08/2309/12/2016 Inactive levothyroxine 88 mcg tablet RxNorm: 728000 TAKE ONE TABLET BY MOUTH ONCE DAILY 08/19/2016 12/16/2016 Inactive hydrocodone 10 mg-acetaminophen 325 mg tablet RxNorm: 441885 1 Tablet(s) PO Q6 as needed 08/17/2016 09/12/2016 Inactive nystatin 100,000 unit/gram topical powder RxNorm: 178687 1 Application TOP QID 08/16/2016 08/25/2016 Inactive Cymbalta 60 mg capsule,delayed release RxNorm: 373531 TAKE ONE CAPSULE BY MOUTH ONCE DAILY 08/10/2016 11/29/2016 Inactive Voltaren 1 % topical gel RxNorm: 665702 4 Gram(s) TOP QID 08/1008/22/2016 Inactive Voltaren 1 % topical gel RxNorm: 282665 4 Gram(s) TOP QID 08/1008/09/2016 Inactive promethazine 25 mg tablet RxNorm: 679379 TAKE ONE TABLET BY MOUTH EVERY 8 HOURS NEEDED FOR NAUSEA 07/29/20162017 Inactive nystatin 100,000 unit/gram topical powder RxNorm: 568435 1 Application TOP QID 07/26/2016 08/04/2016 Inactive Levemir FlexTouch U-100 Insulin 100 unit/mL (3 mL) subcutaneous pen RxNorm: 414780 35 Unit(s) SQ BID 07/26/201609/2016 Inactive 35 q am and 30 q pm cyclobenzaprine 10 mg tablet RxNorm: 310223 TAKE ONE TABLET BY MOUTH EVERY 8 HOURS NEEDED 07/14/2016 08/22/2016 Inactive hydrocodone 10 mg-acetaminophen 325 mg tablet RxNorm: 562182 1 Tablet(s) PO Q6 as needed 07/11/2016 08/16/2016 Inactive nystatin 100,000 unit/mL oral suspension RxNorm: 134859 5 Milliliter(s) PO QID x 10 days 07/05/2016 07/04/2016 Inactive nystatin 100,000 unit/mL oral suspension RxNorm: 424287 5 Milliliter(s) PO QID x 10 days 07/05/2016 07/04/2016 Inactive nystatin 100,000 unit/mL oral suspension RxNorm: 300567 5 Milliliter(s) PO QID x 10 days 07/05/2016 07/14/2016 Inactive Swish et swallow doxycycline monohydrate 100 mg tablet RxNorm: 220072 1 Tablet(s) PO BID 06/24/2016 07/03/2016 Inactive give doxycyline hyclate promethazine 25 mg tablet RxNorm: 949371 TAKE ONE TABLET BY MOUTH EVERY 8 HOURS NEEDED FOR NAUSEA 06/01/20162016 Inactive pantoprazole 40 mg tablet,delayed release RxNorm: 052983 1 Tablet(s) PO BID 05/25/2016 08/02/2017 Inactive Zofran 4 mg tablet RxNorm: 267174 1 Tablet(s) PO Q12 PRN TAKE 1 TABLET BY MOUTH EVERY 4 TO 6 HOURS NEEDED 05/24/2016 Inactive hydrocodone 10 mg-acetaminophen 325 mg tablet RxNorm: 386848 1 Tablet(s) PO Q6 as needed 05/24/2016 07/10/2016 Inactive Levemir FlexTouch 100 unit/mL (3 mL) subcutaneous insulin pen RxNorm: 916088 25 Unit(s) SQ BID 05/24/2016 06/22/2016 Inactive Xanax 0.5 mg tablet RxNorm: 640209 Tablet(s) TAKE ONE TABLET BY MOUTH THREE TIMES DAILY 05/11/2016 07/09/2016 Inactive BD Insulin Pen Needle UF Short 31 gauge x 5/16" RxNorm: [facility] [place] 05/06/2016 05/05/2016 Inactive BD Insulin Pen Needle UF Short 31 gauge x 5/16" RxNorm: [facility] [place] 05/06/2016 06/04/2016 Inactive colestipol 1 gram tablet RxNorm: 0316996 Tablet(s) TAKE 1 TABLET BY MOUTH TWICE DAILY 04/22/2016 04/16/2017 Inactive Levemir FlexTouch 100 unit/mL (3 mL) subcutaneous insulin pen RxNorm: 836881 20 Unit(s) SQ BID 04/19/2016 05/18/2016 Inactive 25 UNITS Q AM AND 20 UNITS Q HS Cartia XT 180 mg capsule,extended release RxNorm: 419424 Capsule(s) BID 04/11/2016 04/05/2017 Inactive hydrocodone 10 mg-acetaminophen 325 mg tablet RxNorm: 029604 1 Tablet(s) PO Q6 as needed 04/11/2016 05/23/2016 Inactive Levemir FlexTouch 100 unit/mL (3 mL) subcutaneous insulin pen RxNorm: 590294 20 Unit(s) SQ BID 04/11/2016 04/18/2016 Inactive 20 UNITS Q AM AND 15 UNITS Q HS X 1 WEEK THEN 20 UNITS BID levothyroxine 88 mcg tablet RxNorm: 666500 1 Tablet(s) PO daily 03/21/2016 07/18/2016 Inactive Cymbalta 60 mg capsule,delayed release RxNorm: 085477 1 Capsule(s) PO daily 03/21/2016 07/18/2016 Inactive diltiazem ER (XR/XT) 240 mg capsule,extended release, controlled RxNorm: 964307 1 Capsule(s) PO BID 03/18/20162017 Inactive doxycycline hyclate 100 mg tablet RxNorm: 965883 1 Tablet(s) PO BID 03/11/2016 03/17/2016 Inactive Levemir FlexTouch 100 unit/mL (3 mL) subcutaneous insulin pen RxNorm: 926877 10 Unit(s) SQ BID 03/11/2016 04/09/2016 Inactive Lasix 40 mg tablet RxNorm: 438178 1 Tablet(s) PO BID 201509/06/2016 Inactive gabapentin 600 mg tablet RxNorm: 866558 Tablet(s) 1.5 TABLET(S) PO TID 03/04/2016 08/30/2016 Inactive Toujeo SoloStar 300 unit/mL (1.5 mL) subcutaneous insulin pen RxNorm: 9473765 10 Unit(s) SQ QHS 02/26/2016 03/26/2016 Inactive polymyxin B sulfate 10,000 unit-trimethoprim 1 mg/mL eye drops RxNorm: 102360 2 Drop(s) OPH TID 02/26/2016 03/03/2016 Inactive Lasix 20 mg tablet RxNorm: 514255 2 Tablet(s) PO BID TAKE 2 TABLETS BY MOUTH EVERY MORNING AND 2 TABLET BY MOUTH AT 3 PM 02/26/2016 03/10/2016 Inactive cyclobenzaprine 10 mg tablet RxNorm: 653043 Tablet(s) TABLET(S) TABLET(S) 1 TABLET (S) PO NEEDED TAKE 1 TABLET BY MOUTH EVERY 8 HOURS NEEDED 02/26/2016 07/13/2016 Inactive early fill- pt lost med Levemir FlexTouch 100 unit/mL (3 mL) subcutaneous insulin pen RxNorm: 594768 16 Unit(s) SQ QHS 02/18/2016 02/17/2016 Inactive Levemir FlexTouch 100 unit/mL (3 mL) subcutaneous insulin pen RxNorm: 532312 16 Unit(s) SQ QHS 02/18/2016 02/25/2016 Inactive Levemir 100 unit/mL subcutaneous solution RxNorm: 638042 16 Unit(s) SQ QHS 02/15/2016 02/17/2016 Inactive disp needles as well Effexor XR 37.5 mg capsule,extended release RxNorm: 436507 1 Capsule(s) QPM CAPSULE(S) PO TAKE 2 CAPSULES BY MOUTH EVERY MORNING AND 1 CAPSULE BY MOUTH EVERY NIGHT AT BEDTIME 02/15/20162015 Inactive clotrimazole 100 mg vaginal tablet RxNorm: 814741 1 Tablet(s) VAG QHS 02/05/2016 02/11/2016 Inactive clotrimazole 100 mg vaginal tablet RxNorm: 053960 1 Tablet(s) VAG QHS 02/05/2016 02/04/2016 Inactive hydrocodone 10 mg-acetaminophen 325 mg tablet RxNorm: 087058 1 Tablet(s) PO Q6 as needed 02/05/2016 04/10/2016 Inactive flecainide 100 mg tablet RxNorm: 215305 1 Tablet(s) PO BID No Stop Date Active potassium chloride ER 10 mEq tablet,extended release RxNorm: 940518 1 Tablet(s) PO daily 1 TABLET(S) PO QDAY PRN TAKE WITH LASIX 02/02/2016 01/26/2017 Inactive Brovana 15 mcg/2 mL solution for nebulization RxNorm: 741271 2 Milliliter(s) INH BID PRN 02/02/2016 03/20/2016 Inactive promethazine 25 mg tablet RxNorm: 262461 1 Tablet(s) PO Q8 as needed nausea 01/27/2016 03/20/2016 Inactive promethazine 25 mg tablet RxNorm: 994965 1 Tablet(s) PO Q6 PRN 01/27/2016 02/03/2016 Inactive nystatin 100,000 unit/mL oral suspension RxNorm: 831149 5 Unit(s) PO QID 01/12/2016 05/06/2018 Inactive promethazine 25 mg tablet RxNorm: 850596 1 Tablet(s) PO Q6 PRN 12/30/2015 01/06/2016 Inactive hydrocodone 7.5 mg-acetaminophen 325 mg tablet RxNorm: 582183 1 Tablet(s) PO q 6 hours prn for pain 12/10/2015 01/06/2016 Inactive Xanax 0.5 mg tablet RxNorm: 897781 TAKE ONE TABLET BY MOUTH THREE TIMES DAILY 12/02/2015 12/31/2015 Inactive Xanax 0.5 mg tablet RxNorm: 697889 Tablet(s) TAKE 1 TABLET BY MOUTH THREE TIMES DAILY 12/02/2015 11/30/2015 Inactive Anusol-HC 25 mg rectal suppository RxNorm: 2570015 1 Suppository RTL HS 11/27/2015 09/12/2016 Inactive ropinirole 1 mg tablet RxNorm: 935588 1 Tablet(s) PO QHS 201505/24/2016 Inactive nystatin 100,000 unit/mL oral suspension RxNorm: 095267 5 Unit(s) PO QID 11/20/2015 11/29/2015 Inactive albuterol sulfate concentrate 2.5 mg/0.5 mL solution for nebulization RxNorm: 653813 3 Milliliter(s) INH Q4-6H as needed 11/10/2015 11/02/2016 Inactive doxycycline monohydrate 100 mg tablet RxNorm: 990186 1 Tablet(s) PO BID 11/10/2015 11/19/2015 Inactive give doxycyline hyclate promethazine 25 mg tablet RxNorm: 368256 1 Tablet(s) PO Q6 PRN 11/05/2015 11/12/2015 Inactive Bactroban 2 % topical ointment RxNorm: 892570 1 APPLICATION TOP BID 10/27/2015 10/26/2017 Inactive Belviq 10 mg tablet RxNorm: 2353362 1 Tablet(s) PO BID 201511/25/2015 Inactive hydrocodone 7.5 mg-acetaminophen 325 mg tablet RxNorm: 553565 1 Tablet(s) PO q 6 hours prn for pain 10/20/2015 11/18/2015 Inactive Toprol XL 100 mg tablet,extended release RxNorm: 539391 Tablet(s) TAKE 1 TABLET BY MOUTH TWICE DAILY 10/16/20152016 Inactive Diflucan 150 mg tablet RxNorm: 726009 1 Tablet(s) PO every other day 10/14/2015 10/23/2015 Inactive Xanax 0.5 mg tablet RxNorm: 894560 Tablet(s) TAKE 1 TABLET BY MOUTH THREE TIMES DAILY 10/14/2015 05/10/2016 Inactive Toprol XL 100 mg tablet,extended release RxNorm: 991597 Tablet(s) TAKE 1 TABLET BY MOUTH TWICE DAILY 10/13/20152015 Inactive cyclobenzaprine 10 mg tablet RxNorm: 772617 Tablet(s) TABLET(S) TABLET(S) 1 TABLET (S) PO NEEDED TAKE 1 TABLET BY MOUTH EVERY 8 HOURS NEEDED 10/02/2015 10/14/2015 Inactive Zofran 4 mg tablet RxNorm: 451806 Tablet(s) 1 TABLET(S) PRN TAKE 1 TABLET BY MOUTH EVERY 4 TO 6 HOURS NEEDED 09/29/2015 12/27/2015 Inactive Synthroid 88 mcg tablet RxNorm: 308665 1 Tablet(s) PO daily 1 TABLET(S) PO DAILY 09/29/2015 10/28/2015 Inactive Patient requests 90 days supply promethazine 25 mg tablet RxNorm: 424367 1 Tablet(s) PO Q6 PRN 09/29/2015 11/04/2015 Inactive Lasix 20 mg tablet RxNorm: 595378 2 Tablet(s) PO BID 201501/18/2016 Inactive promethazine 25 mg tablet RxNorm: 163752 1 Tablet(s) PO Q6 PRN 09/22/2015 09/28/2015 Inactive hydrocodone 7.5 mg-acetaminophen 325 mg tablet RxNorm: 905119 1 Tablet(s) PO q 6 hours prn for pain 09/17/2015 10/16/2015 Inactive WelChol 625 mg tablet RxNorm: 847941 3 Tablet(s) PO BID 201503/26/2017 Inactive promethazine 25 mg tablet RxNorm: 463160 1 Tablet(s) PO Q8 as needed 09/07/2015 10/26/2017 Inactive Levemir 100 unit/mL subcutaneous solution RxNorm: 907330 16 Unit(s) SQ QHS 09/01/2015 02/14/2016 Inactive pantoprazole 40 mg tablet,delayed release RxNorm: 219635 1 Tablet(s) PO daily 09/01/2015 05/24/2016 Inactive Effexor XR 37.5 mg capsule,extended release RxNorm: 729978 Capsule(s) CAPSULE(S) PO TAKE 2 CAPSULES BY MOUTH EVERY MORNING AND 1 CAPSULE BY MOUTH EVERY NIGHT AT BEDTIME 08/27/2015 02/14/2016 Inactive promethazine 25 mg tablet RxNorm: 269999 1 Tablet(s) PO Q8 as needed 08/13/2015 09/06/2015 Inactive gabapentin 600 mg tablet RxNorm: 716148 Tablet(s) 1.5 TABLET(S) PO TID 08/13/2015 02/08/2016 Inactive hydrocodone 7.5 mg-acetaminophen 325 mg tablet RxNorm: 199534 1 Tablet(s) PO q 6 hours prn for pain 08/10/2015 09/08/2015 Inactive Zofran 4 mg tablet RxNorm: 553072 Tablet(s) 1 TABLET(S) PRN TAKE 1 TABLET BY MOUTH EVERY 4 TO 6 HOURS NEEDED 08/04/2015 08/03/2015 Inactive Zofran 4 mg tablet RxNorm: 931827 Tablet(s) 1 TABLET(S) PRN TAKE 1 TABLET BY MOUTH EVERY 4 TO 6 HOURS NEEDED 08/04/2015 09/28/2015 Inactive doxycycline monohydrate 100 mg tablet RxNorm: 125961 1 Tablet(s) PO BID 08/04/2015 08/10/2015 Inactive give doxycyline hyclate Diflucan 150 mg tablet RxNorm: 207705 1 Tablet(s) PO every other day 07/31/2015 08/09/2015 Inactive nystatin 100,000 unit/mL oral suspension RxNorm: 144883 5 Milliliter(s) PO QID 07/31/2015 07/30/2015 Inactive Diflucan 150 mg tablet RxNorm: 494409 1 Tablet(s) PO every other day 07/31/2015 07/30/2015 Inactive nystatin 100,000 unit/mL oral suspension RxNorm: 360863 5 Milliliter(s) PO QID 07/31/2015 08/09/2015 Inactive Ceftin 500 mg tablet RxNorm: 008069 1 Tablet(s) PO BID 201507/23/2015 Inactive Ceftin 500 mg tablet RxNorm: 993867 1 Tablet(s) PO BID Pre-medicate with benadryl 50 mg, pepcid 20 mg, and nathanael before each dose 07/24/2015 07/30/2015 Inactive cyclobenzaprine 10 mg tablet RxNorm: 037663 TABLET(S) TABLET(S) 1 TABLET(S) PO NEEDED TAKE 1 TABLET BY MOUTH EVERY 8 HOURS NEEDED 201502/25/2016 Inactive early fill- pt lost med Synthroid 88 mcg tablet RxNorm: 196534 1 TABLET(S) PO DAILY 07/201509/28/2015 Inactive Patient requests 90 days supply cyclobenzaprine 10 mg tablet RxNorm: 940423 Tablet(s) TABLET(S) TABLET(S) 1 TABLET (S) PO NEEDED TAKE 1 TABLET BY MOUTH EVERY 8 HOURS NEEDED 07/23/2015 10/01/2015 Inactive early fill- pt lost med Promethazine VC 6.25 mg-5 mg/5 mL syrup RxNorm: 2854242 1-2 Teaspoon(s) PO Q6 PRN as needed 07/22/2015 03/20/2016 Inactive Diflucan 150 mg tablet RxNorm: 664760 1 Tablet(s) PO daily 06/201507/22/2015 Inactive Lasix 20 mg tablet RxNorm: 343472 Tablet(s) TAKE 2 TABLETS BY MOUTH EVERY MORNING AND 2 TABLET BY MOUTH AT 3PM 07/16/2015 09/21/2015 Inactive Toprol XL 100 mg tablet,extended release RxNorm: 212862 Tablet(s) TAKE 1 TABLET BY MOUTH TWICE DAILY 07/16/20152015 Inactive Cartia XT 180 mg capsule,extended release RxNorm: 605035 Capsule(s) 1 CAPSULE(S) PO DAILY TAKE 1 CAPSULE BY MOUTH AT BEDTIME ..TAKE THIS IN ADDITION TO 240 MG IN THE MORNING 07/14/2015 04/10/2016 Inactive diltiazem ER (XR/XT) 240 mg capsule,extended release, controlled RxNorm: 612763 Capsule(s) TAKE 1 CAPSULE BY MOUTH DAILY 07/14/2015 03/17/2016 Inactive gabapentin 600 mg tablet RxNorm: 930959 Tablet(s) 1.5 TABLET(S) PO TID 07/06/2015 08/12/2015 Inactive Phenergan 25 mg tablet RxNorm: 529957 1 Tablet(s) PO Q8 as needed nausea 06/29/2015 01/25/2016 Inactive doxycycline monohydrate 100 mg tablet RxNorm: 748282 1 Tablet(s) PO BID 06/29/2015 06/28/2015 Inactive doxycycline monohydrate 100 mg tablet RxNorm: 442192 1 Tablet(s) PO BID 06/29/2015 07/08/2015 Inactive give doxycyline hyclate doxycycline monohydrate 100 mg tablet RxNorm: 306316 1 Tablet(s) PO BID 06/29/2015 06/28/2015 Inactive Lasix 20 mg tablet RxNorm: 362406 Tablet(s) TAKE 2 TABLETS BY MOUTH EVERY MORNING AND 2 TABLET BY MOUTH AT 3PM 06/29/2015 07/15/2015 Inactive Lasix 20 mg tablet RxNorm: 908300 Tablet(s) TAKE 2 TABLETS BY MOUTH EVERY MORNING AND 1 TABLET BY MOUTH AT 3PM 06/26/2015 06/28/2015 Inactive Xanax 0.5 mg tablet RxNorm: 080322 Tablet(s) TAKE 1 TABLET BY MOUTH THREE TIMES DAILY 06/26/2015 07/25/2015 Inactive Kenalog 40 mg/mL suspension for injection RxNorm: 0803986 Milliliter(s) Inj 06/26/2015 06/26/2015 Inactive hydrocodone 7.5 mg-acetaminophen 325 mg tablet RxNorm: 362295 1 Tablet(s) PO q 6 hours prn for pain 06/26/2015 07/25/2015 Inactive Dexilant 60 mg capsule, delayed release RxNorm: 397420 1 Capsule(s) PO daily 06/26/2015 08/24/2015 Inactive colestipol 1 gram tablet RxNorm: 3441954 1 TABLET(S) PO BID TAKE 1 TABLET BY MOUTH TWICE DAILY 06/16/2015 03/11/2016 Inactive hydrocodone 7.5 mg-acetaminophen 325 mg tablet RxNorm: 985617 1 Tablet(s) PO q 6 hours prn for pain 06/11/2015 06/25/2015 Inactive cyclobenzaprine 10 mg tablet RxNorm: 692172 TABLET(S) TABLET(S) 1 TABLET(S) PO NEEDED TAKE 1 TABLET BY MOUTH EVERY 8 HOURS NEEDED 201507/22/2015 Inactive early fill- pt lost med Zofran 4 mg tablet RxNorm: 846976 1 TABLET(S) PRN TAKE 1 TABLET BY MOUTH EVERY 4 TO 6 HOURS NEEDED 05/25/20152015 Inactive Zofran 4 mg tablet RxNorm: 294842 1 Tablet(s) PRN TAKE 1 TABLET BY MOUTH EVERY 4 TO 6 HOURS NEEDED 05/19/20152015 Inactive gabapentin 600 mg tablet RxNorm: 241003 1.5 TABLET(S) PO TID 07/05/2015 Inactive Lasix 20 mg tablet RxNorm: 453779 TAKE 2 TABLETS BY MOUTH EVERY MORNING AND 1 TABLET BY MOUTH AT 3PM 05/07/20152015 Inactive Effexor XR 37.5 mg capsule,extended release RxNorm: 705055 Capsule(s) CAPSULE(S) PO TAKE 2 CAPSULES BY MOUTH EVERY MORNING AND 1 CAPSULE BY MOUTH EVERY NIGHT AT BEDTIME 04/15/2015 08/26/2015 Inactive Diflucan 150 mg tablet RxNorm: 896589 1 Tablet(s) PO daily 04/18/2015 Inactive Victoza 3-Babak 0.6 mg/0.1 mL (18 mg/3 mL) subcutaneous pen injector RxNorm: 280982 1.8 Milligram(s) SQ daily 04/14/201508/10 Inactive Levaquin 500 mg tablet RxNorm: 229544 1 Tablet(s) PO daily 04/20/2015 Inactive potassium chloride ER 10 mEq tablet,extended release RxNorm: 399078 1 TABLET(S) PO QDAY PRN TAKE WITH LASIX 04/13/201504/2016 Inactive Effexor XR 37.5 mg capsule,extended release RxNorm: 247605 CAPSULE(S) PO TAKE 2 CAPSULES BY MOUTH EVERY MORNING AND 1 CAPSULE BY MOUTH EVERY NIGHT AT BEDTIME 04/10/2015 04/14/2015 Inactive pantoprazole 40 mg tablet,delayed release RxNorm: 289321 1 Tablet(s) PO daily 03/31/2015 08/31/2015 Inactive Dexilant 60 mg capsule, delayed release RxNorm: 812991 1 Capsule(s) PO daily 03/31/2015 03/31/2015 Inactive pantoprazole 40 mg tablet,delayed release RxNorm: 437408 1 Tablet(s) PO daily 03/31/2015 03/30/2015 Inactive Dexilant 60 mg capsule, delayed release RxNorm: 425503 1 Capsule(s) PO daily 03/31/2015 05/29/2015 Inactive Dexilant 60 mg capsule, delayed release RxNorm: 385565 1 Capsule(s) PO daily 03/30/2015 03/30/2015 Inactive hydrocodone 7.5 mg-acetaminophen 325 mg tablet RxNorm: 938870 1 Tablet(s) PO q 6 hours prn for pain 03/30/2015 04/28/2015 Inactive cyclobenzaprine 10 mg tablet RxNorm: 356081 TABLET(S) TABLET(S) 1 TABLET(S) PO NEEDED TAKE 1 TABLET BY MOUTH EVERY 8 HOURS NEEDED 201405/31/2015 Inactive early fill- pt lost med Xanax 0.5 mg tablet RxNorm: 021200 Tablet(s) TAKE 1 TABLET BY MOUTH THREE TIMES DAILY 03/25/2015 04/23/2015 Inactive Lasix 20 mg tablet RxNorm: 219267 TAKE 2 TABLETS BY MOUTH EVERY MORNING AND 1 TABLET BY MOUTH AT 3PM 03/23/20152014 Inactive Levemir Flexpen 100 unit/mL (3 mL) solution subcutaneous insulin pen RxNorm: 538838 15 Unit(s) SQ BID 03/20/20152015 Inactive give quanity sufficient for 1 month- Dexilant 60 mg capsule, delayed release RxNorm: 876363 1 Capsule(s) PO daily 03/19/2015 03/29/2015 Inactive Dexilant 60 mg capsule, delayed release RxNorm: 108221 1 Capsule(s) PO daily 03/19/2015 03/18/2015 Inactive Diflucan 150 mg tablet RxNorm: 358848 1 Tablet(s) PO every other day x7 doses 03/19/2015 03/21/2015 Inactive hydrocodone 7.5 mg-acetaminophen 325 mg tablet RxNorm: 109100 1 Tablet(s) PO q 6 hours prn for pain 02/27/2015 03/28/2015 Inactive Lasix 20 mg tablet RxNorm: 625261 TAKE 2 TABLETS BY MOUTH EVERY MORNING AND 1 TABLET BY MOUTH AT 3PM 02/27/20152014 Inactive omeprazole 20 mg capsule,delayed release RxNorm: 590847 1 CAPSULE(S) PO DAILY TAKE 1 CAPSULE BY MOUTH TWICE DAILY 02/26/2015 10/26/2017 Inactive Zofran 4 mg tablet RxNorm: 286464 1 Tablet(s) PRN TAKE 1 TABLET BY MOUTH EVERY 4 TO 6 HOURS NEEDED 02/24/20152014 Inactive fluconazole 150 mg tablet RxNorm: 232468 1 Tablet(s) PO every other day x 5 doses 02/19/2015 02/28/2015 Inactive cyclobenzaprine 10 mg tablet RxNorm: 219894 TABLET(S) TABLET(S) 1 TABLET(S) PO NEEDED TAKE 1 TABLET BY MOUTH EVERY 8 HOURS NEEDED 201403/29/2015 Inactive early fill- pt lost med hydrocodone 7.5 mg-acetaminophen 325 mg tablet RxNorm: 604001 1 Tablet(s) PO q 6 hours prn for pain 01/29/2015 02/26/2015 Inactive Xanax 0.5 mg tablet RxNorm: 540943 Tablet(s) TAKE 1 TABLET BY MOUTH THREE TIMES DAILY 01/29/2015 02/27/2015 Inactive Bactroban 2 % topical ointment RxNorm: 836264 1 APPLICATION TOP BID 01/26/2015 10/26/2015 Inactive Bactroban 2 % topical ointment RxNorm: 692905 1 Application TOP BID 01/15/2015 01/25/2015 Inactive doxycycline hyclate 100 mg tablet RxNorm: 209143 1 Tablet(s) PO BID 01/15/2015 01/21/2015 Inactive nystatin 100,000 unit/mL oral suspension RxNorm: 980473 5 Milliliter(s) PO QID 01/15/2015 01/24/2015 Inactive Cartia XT 180 mg capsule,extended release RxNorm: 026514 1 CAPSULE(S) PO DAILY TAKE 1 CAPSULE BY MOUTH AT BEDTIME ..TAKE THIS IN ADDITION TO 240 MG IN THE MORNING 01/13/2015 07/13/2015 Inactive Lasix 20 mg tablet RxNorm: 302987 TAKE 2 TABLETS BY MOUTH EVERY MORNING AND 1 TABLET BY MOUTH AT 3PM 01/08/20152014 Inactive fluconazole 150 mg tablet RxNorm: 298508 1 Tablet(s) PO daily 01/01/2015 01/05/2015 Inactive hydrocodone 7.5 mg-acetaminophen 325 mg tablet RxNorm: 690406 1 Tablet(s) PO q 6 hours prn for pain 01/01/2015 01/28/2015 Inactive colestipol 1 gram tablet RxNorm: 5065504 1 TABLET(S) PO BID TAKE 1 TABLET BY MOUTH TWICE DAILY 12/18/2014 06/15/2015 Inactive colestipol 1 gram tablet RxNorm: 4318409 1 TABLET(S) PO BID TAKE 1 TABLET BY MOUTH TWICE DAILY 12/18/2014 09/13/2015 Inactive Lasix 20 mg tablet RxNorm: 716276 TAKE 2 TABLETS BY MOUTH EVERY MORNING AND 2 TABLETS AND AT 3PM 12/11/2014 12/25/2014 Inactive cyclobenzaprine 10 mg tablet RxNorm: 952997 TABLET(S) 1 TABLET(S) PO NEEDED TAKE 1 TABLET BY MOUTH EVERY 8 HOURS NEEDED 12/11/2014 05/31/2017 Inactive Lasix 20 mg tablet RxNorm: 065159 Tablet(s) TABLET(S) PO TAKE 2 TABLETS BY MOUTH EVERY MORNING AND 1 TABLET BY MOUTH AT 3 PM 12/10/2014 12/10/2014 Inactive fill early- pt lost them cyclobenzaprine 10 mg tablet RxNorm: 812574 Tablet(s) TABLET(S) 1 TABLET(S) PO NEEDED TAKE 1 TABLET BY MOUTH EVERY 8 HOURS NEEDED 201402/15/2015 Inactive early fill- pt lost med cyclobenzaprine 10 mg tablet RxNorm: 611264 TABLET(S) 1 TABLET(S) PO NEEDED TAKE 1 TABLET BY MOUTH EVERY 8 HOURS NEEDED 12/02/2014 12/09/2014 Inactive hydrocodone 7.5 mg-acetaminophen 325 mg tablet RxNorm: 306960 1 Tablet(s) PO q 6 hours prn for pain 12/01/2014 12/30/2014 Inactive diltiazem ER (XR/XT) 240 mg capsule,extended release, controlled RxNorm: 410350 TAKE 1 CAPSULE BY MOUTH DAILY 11/30/2014 07/13/2015 Inactive Xanax 0.5 mg tablet RxNorm: 949852 1 Tablet(s) PO TID PRN as needed 11/19/2014 11/19/2014 Inactive (Appended: Controlled substance eRx refill - RxReferenceNumber: [id number]|1|0|1) Xanax 0.5 mg tablet RxNorm: 761852 TAKE 1 TABLET BY MOUTH THREE TIMES DAILY 11/19/2014 12/18/2014 Inactive Toprol XL 100 mg tablet,extended release RxNorm: 650923 TAKE 1 TABLET BY MOUTH TWICE DAILY 11/06/2014 07/15/2015 Inactive Diflucan 150 mg tablet RxNorm: 758823 1 Tablet(s) PO every other day x7 doses 11/05/2014 11/07/2014 Inactive omeprazole 20 mg capsule,delayed release RxNorm: 542326 1 Capsule(s) PO daily TAKE 1 CAPSULE BY MOUTH TWICE DAILY 11/04/2014 02/01/2015 Inactive cyclobenzaprine 10 mg tablet RxNorm: 060308 TABLET(S) 1 TABLET(S) PO NEEDED TAKE 1 TABLET BY MOUTH EVERY 8 HOURS NEEDED 10/28/2014 12/01/2014 Inactive hydrocodone 7.5 mg-acetaminophen 325 mg tablet RxNorm: 590095 1 Tablet(s) PO q 6 hours prn for pain 10/21/2014 11/19/2014 Inactive gabapentin 600 mg tablet RxNorm: 465095 1.5 Tablet(s) PO TID 04/30/2015 Inactive Xanax 0.5 mg tablet RxNorm: 443159 Tablet(s) TAKE 1 TABLET BY MOUTH THREE TIMES DAILY 10/01/2014 10/30/2014 Inactive (Response to an electronic controlled substance refill request - [facility] [id number]|1|0|1) Xanax 0.25 mg tablet RxNorm: 229331 1 Tablet(s) PO Q8 PRN as needed 09/30/2014 09/30/2014 Inactive Lasix 20 mg tablet RxNorm: 061203 Tablet(s) TAKE 2 TABLETS BY MOUTH EVERY MORNING AND 2 TABLETS BY MOUTH AT 3 PM 09/30/2014 11/12/2014 Inactive Victoza 3-Babak 0.6 mg/0.1 mL (18 mg/3 mL) subcutaneous pen injector RxNorm: 818369 1.2 MILLIGRAM(S) SQ DAILY 0.6 X 2 WEEKS THEN INCREASE TO 1.2MG DAILY 09/26/2014 04/13/2015 Inactive Xanax 0.5 mg tablet RxNorm: 239469 TAKE 1 TABLET BY MOUTH THREE TIMES DAILY 09/25/2014 09/30/2014 Inactive (Response to an electronic controlled substance refill request [facility] [id number]|1|0|1) Zofran 4 mg tablet RxNorm: 742646 TAKE 1 TABLET BY MOUTH EVERY 4 TO 6 HOURS NEEDED 09/25/2014 09/27/2014 Inactive hydrocodone 7.5 mg-acetaminophen 325 mg tablet RxNorm: 141080 1 Tablet(s) PO q 6 hours prn for pain 09/19/2014 10/18/2014 Inactive cyclobenzaprine 10 mg tablet RxNorm: 804773 TABLET(S) 1 TABLET(S) PO NEEDED TAKE 1 TABLET BY MOUTH EVERY 8 HOURS NEEDED 09/15/2014 10/27/2014 Inactive Lasix 20 mg tablet RxNorm: 075170 Tablet(s) TAKE 2 TABLETS BY MOUTH EVERY MORNING AND 2 TABLETS BY MOUTH AT 3 PM 09/08/2014 09/29/2014 Inactive Lasix 20 mg tablet RxNorm: TAKE 2 TABLETS BY MOUTH EVERY MORNING AND 2 TABLETS BY MOUTH AT 3 PM 08/21/20142014 Inactive hydrocodone 7.5 mg-acetaminophen 325 mg tablet RxNorm: 888618 1 Tablet(s) PO q 6 hours prn for pain 08/21/2014 09/18/2014 Inactive Diflucan 150 mg tablet RxNorm: 684133 1 Tablet(s) PO every other day 08/15/2014 08/17/2014 Inactive cyclobenzaprine 10 mg tablet RxNorm: 834102 Tablet(s) 1 TABLET(S) PO NEEDED TAKE 1 TABLET BY MOUTH EVERY 8 HOURS NEEDED 08/12/2014 09/14/2014 Inactive Zofran 4 mg tablet RxNorm: 930455 TAKE 1 TABLET BY MOUTH EVERY 4 TO 6 HOURS NEEDED 07/31/2014 08/02/2014 Inactive Effexor XR 37.5 mg capsule,extended release RxNorm: 231077 CAPSULE(S) PO TAKE 2 CAPSULES BY MOUTH EVERY MORNING AND 1 CAPSULE BY MOUTH EVERY NIGHT AT BEDTIME 07/28/2014 02/15/2016 Inactive Lasix 20 mg tablet RxNorm: TAKE 2 TABLETS BY MOUTH EVERY MORNING AND 2 TABLETS BY MOUTH AT 3 PM 07/22/20142014 Inactive Diflucan 150 mg tablet RxNorm: 285379 1 Tablet(s) PO daily 06/201407/23/2014 Inactive hydrocodone 7.5 mg-acetaminophen 325 mg tablet RxNorm: 139822 1 Tablet(s) PO q 6 hours prn for pain 07/14/2014 08/12/2014 Inactive Synthroid 88 mcg tablet RxNorm: 065597 1 TABLET(S) PO DAILY 10/11/2014 Inactive Effexor XR 37.5 mg capsule,extended release RxNorm: 050743 Capsule(s) PO TAKE 2 CAPSULES BY MOUTH EVERY MORNING AND 1 CAPSULE BY MOUTH EVERY NIGHT AT BEDTIME 07/07/2014 04/09/2015 Inactive Effexor XR 37.5 mg capsule,extended release RxNorm: 797016 TAKE 2 CAPSULES BY MOUTH EVERY MORNING AND 1 CAPSULE BY MOUTH EVERY NIGHT AT BEDTIME 07/07/2014 01/02/2015 Inactive WelChol 625 mg tablet RxNorm: 178596 3 TABLET(S) PO BID 201410/04/2014 Inactive WelChol 625 mg tablet RxNorm: 194567 3 Tablet(s) PO BID 201402/01/2015 Inactive Zofran 4 mg tablet RxNorm: 389610 TAKE 1 TABLET BY MOUTH EVERY 4 TO 6 HOURS NEEDED 07/03/2014 07/05/2014 Inactive Lasix 20 mg tablet RxNorm: 791912 TAKE 2 TABLETS BY MOUTH EVERY MORNING AND 2 TABLETS BY MOUTH AT 3 PM 06/26/20142014 Inactive Diflucan 150 mg tablet RxNorm: 314878 1 Tablet(s) PO daily 06/19/2014 Inactive Promethazine VC 6.25 mg-5 mg/5 mL syrup RxNorm: 6825083 1-2 Teaspoon(s) PO Q6 PRN as needed 06/12/2014 07/21/2015 Inactive hydrocodone 7.5 mg-acetaminophen 325 mg tablet RxNorm: 562641 1 Tablet(s) PO q 6 hours prn for pain 06/03/2014 07/02/2014 Inactive Levaquin 500 mg tablet RxNorm: 597670 1 Tablet(s) PO daily 01/201506/05/2014 Inactive cyclobenzaprine 10 mg tablet RxNorm: 262418 Tablet(s) 1 TABLET(S) PO NEEDED TAKE 1 TABLET BY MOUTH EVERY 8 HOURS NEEDED 05/26/2014 No Stop Date Active cyclobenzaprine 10 mg tablet RxNorm: 493172 1 TABLET(S) PO NEEDED TAKE 1 TABLET BY MOUTH EVERY 8 HOURS NEEDED 05/26/2014 08/11/2014 Inactive Lasix 20 mg tablet RxNorm: 919520 Tablet(s) TABLET(S) PO TAKE 2 TABLETS BY MOUTH EVERY MORNING AND 2 TABLET BY MOUTH AT 3 PM 05/12/2014 06/25/2014 Inactive Combivent Respimat 20 mcg-100 mcg/actuation solution for inhalation RxNorm: 4199999 INHALE 1 PUFF BY MOUTH FOUR TIMES DAILY 05/12/2014 11/07/2014 Inactive fluconazole 150 mg tablet RxNorm: 875357 1 Tablet(s) PO UD 05/12/2014 Inactive 1 tab every other day x 5 doses Activella 0.5 mg-0.1 mg tablet RxNorm: 3419327 1 TABLET(S) PO DAILY TAKE 1 TABLET BY MOUTH DAILY FOR MENOPAUSAL SYMPTOM 05/02/2014 09/21/2015 Inactive hydrocodone 7.5 mg-acetaminophen 300 mg tablet RxNorm: 736218 Tablet(s) PO TAKE 1 TABLET BY MOUTH EVERY 6 HOURS NEEDED FOR PAIN 04/21/2014 06/03/2014 Inactive ( Appended: Controlled substance eRx refill - RxReferenceNumber: [id number]|1|0|1 ) Levaquin 500 mg tablet RxNorm: 638611 1 Tablet(s) PO daily 04/21/2014 Inactive Diflucan 150 mg tablet RxNorm: 211942 1 Tablet(s) PO every other day x 4 doses 04/10/2014 06/16/2014 Inactive Lasix 20 mg tablet RxNorm: TAKE 2 TABLETS BY MOUTH EVERY MORNING AND 1 TABLET BY MOUTH AT 3 PM 04/10/20142013 Inactive potassium chloride ER 10 mEq tablet,extended release RxNorm: 124854 1 TABLET(S) PO QDAY PRN TAKE WITH LASIX 04/09/2014 Inactive Levaquin 250 mg tablet RxNorm: 007955 1 Tablet(s) PO daily 08/201304/07/2014 Inactive 2 tabs today then 1 tab daily until gone atorvastatin 40 mg tablet RxNorm: 136790 1 Tablet(s) daily 1 TABLET(S) PO DAILY 03/25/2014 04/10/2016 Inactive TAKE 1 TABLET BY MOUTH DAILY (THIS IS AN INCREASE IN DOSAGE) Zofran 4 mg tablet RxNorm: 524571 1 Tablet(s) PO Q4-6H 201307/02/2014 Inactive Xanax 0.5 mg tablet RxNorm: 871317 TAKE 1 TABLET BY MOUTH THREE TIMES DAILY NEEDED 03/19/2014 04/17/2014 Inactive (Response to an electronic controlled substance refill request - RxReferenceNumber: [id number]|1|0|1) hydrocodone 7.5 mg-acetaminophen 300 mg tablet RxNorm: 717883 Tablet(s) PO TAKE 1 TABLET BY MOUTH EVERY 6 HOURS NEEDED FOR PAIN 03/19/2014 04/20/2014 Inactive ( Appended: Controlled substance eRx refill - RxReferenceNumber: [id number]|1|0|1 ) atorvastatin 40 mg tablet RxNorm: 320423 1 TABLET(S) PO DAILY 03/10/2014 03/24/2014 Inactive TAKE 1 TABLET BY MOUTH DAILY (THIS IS AN INCREASE IN DOSAGE) WelChol 625 mg tablet RxNorm: 847020 3 Tablet(s) PO BID 201303/06/2014 Inactive WelChol 625 mg tablet RxNorm: 198155 3 Tablet(s) PO BID 201307/04/2014 Inactive Lasix 20 mg tablet RxNorm: 084815 Tablet(s) TABLET(S) PO TAKE 2 TABLETS BY MOUTH EVERY MORNING AND 2 TABLET BY MOUTH AT 3 PM 03/03/2014 05/11/2014 Inactive Lasix 20 mg tablet RxNorm: 962547 TABLET(S) PO TAKE 2 TABLETS BY MOUTH EVERY MORNING AND 1 TABLET BY MOUTH AT 3 PM 02/20/2014 03/02/2014 Inactive gabapentin 600 mg tablet RxNorm: 887249 1.5 Tablet(s) PO TID 09/16/2014 Inactive Synthroid 88 mcg tablet RxNorm: 122127 1 TABLET(S) PO DAILY 05/18/2014 Inactive cyclobenzaprine 10 mg tablet RxNorm: 029771 1 TABLET(S) PO NEEDED TAKE 1 TABLET BY MOUTH EVERY 8 HOURS NEEDED 02/18/2014 05/25/2014 Inactive doxycycline hyclate 100 mg tablet RxNorm: 475975 1 Tablet(s) PO BID 02/13/2014 02/22/2014 Inactive Bactroban 2 % topical ointment RxNorm: 562844 1 Application TOP BID 02/13/2014 03/12/2014 Inactive Victoza 3-Babak 0.6 mg/0.1 mL (18 mg/3 mL) subcutaneous pen injector RxNorm: 592525 1.2 MILLIGRAM(S) SQ DAILY 0.6 X 2 WEEKS THEN INCREASE TO 1.2MG DAILY 02/10/2014 05/10/2014 Inactive albuterol sulfate 1.25 mg/3 mL solution for nebulization RxNorm: 236094 3 MILLILITER(S) INH TID 02/07/20142014 Inactive 1 box Victoza 3-Babak 0.6 mg/0.1 mL (18 mg/3 mL) subcutaneous pen injector RxNorm: 702241 1.8 Milligram(s) SQ daily 0.6 x 2 weeks then increase to 1.2mg daily 01/27/2014 05/26/2014 Inactive Levemir Flexpen 100 unit/mL (3 mL) solution subcutaneous insulin pen RxNorm: 031326 5units sq at hs, increase by 3 Unit(s) SQ at hs every 3days, goal FSBS 170 or less, do not increase above 20units, call doctor with report 01/27/2014 05/26/2014 Inactive hydrocodone 7.5 mg-acetaminophen 300 mg tablet RxNorm: 667636 Tablet(s) PO TAKE 1 TABLET BY MOUTH EVERY 6 HOURS NEEDED FOR PAIN 01/24/2014 03/18/2014 Inactive ( Appended: Controlled substance eRx refill - RxReferenceNumber: [id number]|1|0|1 ) Xanax 0.5 mg tablet RxNorm: 386724 1 Tablet(s) PO TID PRN as needed 01/24/2014 09/21/2014 Inactive (Appended: Controlled substance eRx refill - RxReferenceNumber: [id number]|1|0|1) Xanax 0.5 mg tablet RxNorm: 865210 TAKE 1 TABLET BY MOUTH THREE TIMES DAILY NEEDED 01/23/2014 02/21/2014 Inactive (Response to an electronic controlled substance refill request - RxReferenceNumber: [id number]|1|0|1) hydrocodone 5 mg-acetaminophen 325 mg tablet RxNorm: 969571 TAKE 1 TABLET BY MOUTH EVERY 6 HOURS NEEDED FOR PAIN 01/21/2014 02/19/2014 Inactive (Response to an electronic controlled substance refill request - RxReferenceNumber: [id number]| [id number]|1|0|1) Lasix 20 mg tablet RxNorm: 624132 TAKE 2 TABLETS BY MOUTH EVERY MORNING AND 1 TABLET BY MOUTH AT 3 PM 01/17/20142013 Inactive cyclobenzaprine 10 mg tablet RxNorm: 765959 1 Tablet(s) PO as needed TAKE 1 TABLET BY MOUTH EVERY 8 HOURS NEEDED 01/13/2014 02/17/2014 Inactive Anusol-HC 25 mg suppository RxNorm: 8114314 1 SUPPOSITORY RTL PRN ONE PER RECTUM NEEDED, UP TO TWICE DAILY FOR HEMORRHOID, NO MORE THAN 7 DAYS IN A ROW 01/10/2014 02/06/2014 Inactive Activella 0.5 mg-0.1 mg tablet RxNorm: 2270286 1 Tablet(s) PO daily TAKE 1 TABLET BY MOUTH DAILY FOR MENOPAUSAL SYMPTOM 01/08/2014 05/01/2014 Inactive gabapentin 600 mg tablet RxNorm: 376460 1.5 Tablet(s) PO TID 02/18/2014 Inactive gabapentin 600 mg tablet RxNorm: 978825 1.5 Tablet(s) PO TID 01/01/2014 Inactive hydrocodone 7.5 mg-acetaminophen 300 mg tablet RxNorm: 195436 Tablet(s) PO TAKE 1 TABLET BY MOUTH EVERY 6 HOURS NEEDED FOR PAIN 12/12/2013 01/23/2014 Inactive ( Appended: Controlled substance eRx refill - RxReferenceNumber: [id number]|1|0|1 ) Levaquin 250 mg tablet RxNorm: 866250 1 Tablet(s) PO daily 12/18/2013 Inactive 2 tabs today then 1 tab daily until gone Diflucan 150 mg tablet RxNorm: 790981 1 Tablet(s) PO daily 12/16/2013 Inactive do not stat until levaquin is completed Cartia XT 180 mg capsule,extended release RxNorm: 043470 1 CAPSULE(S) PO DAILY TAKE 1 CAPSULE BY MOUTH AT BEDTIME ..TAKE THIS IN ADDITION TO 240 MG IN THE MORNING 12/12/2013 12/06/2014 Inactive diltiazem ER (XR/XT) 240 mg capsule,extended release, controlled RxNorm: 329052 1 Capsule(s) PO daily TAKE 1 CAPSULE BY MOUTH EVERY DAY 11/28/2014 Inactive Effexor XR 37.5 mg capsule,extended release RxNorm: 958050 Capsule(s) PO TAKE 2 CAPSULES BY MOUTH EVERY MORNING AND 1 CAPSULE BY MOUTH EVERY NIGHT AT BEDTIME 12/04/2013 07/06/2014 Inactive Lasix 20 mg tablet RxNorm: TABLET(S) PO TAKE 2 TABLETS BY MOUTH EVERY MORNING AND 1 TABLET BY MOUTH AT 3 PM 12/04/2013 12/09/2014 Inactive Voltaren 1 % topical gel RxNorm: 442396 4 Gram(s) TOP QID 11/2703/26/2014 Inactive Cartia XT 180 mg capsule,extended release RxNorm: 227498 1 Capsule(s) PO daily TAKE 1 CAPSULE BY MOUTH AT BEDTIME ..TAKE THIS IN ADDITION TO 240 MG IN THE MORNING 11/27/2013 01/12/2015 Inactive Lasix 20 mg tablet RxNorm: TABLET(S) PO TAKE 2 TABLETS BY MOUTH EVERY MORNING AND 1 TABLET BY MOUTH AT 3 PM 11/26/2013 02/19/2014 Inactive colestipol 1 gram tablet RxNorm: 8579598 1 Tablet(s) PO BID TAKE 1 TABLET BY MOUTH TWICE DAILY 11/26/2013 11/20/2014 Inactive cyclobenzaprine 10 mg tablet RxNorm: 462223 Tablet(s) PO TAKE 1 TABLET BY MOUTH EVERY 8 HOURS NEEDED 11/21/20132013 Inactive Diflucan 150 mg tablet RxNorm: 619029 1 Tablet(s) PO daily TAKE 1 TABLET BY MOUTH EVERY OTHER DAY FOR 8 DOSES 11/14/201306/2013 Inactive peak flow meter-inh assist dev kit RxNorm: 1 dose Miscellaneous PRN 11/14/2013 10/27/2017 Inactive Effexor XR 37.5 mg capsule,extended release RxNorm: 923512 Capsule(s) PO TAKE 2 CAPSULES BY MOUTH EVERY MORNING AND 1 CAPSULE BY MOUTH EVERY NIGHT AT BEDTIME 11/04/2013 12/03/2013 Inactive Anusol-HC 25 mg suppository RxNorm: 2031907 1 Suppository RTL PRN one per rectum as needed, up to twice daily for hemorrhoid, no more than 7 days in a row 10/23/2013 10/22/2013 Inactive Anusol-HC 25 mg suppository RxNorm: 7719175 1 Suppository RTL PRN one per rectum as needed, up to twice daily for hemorrhoid, no more than 7 days in a row 10/23/2013 01/09/2014 Inactive Activella 0.5 mg-0.1 mg tablet RxNorm: 6685015 Tablet(s) PO TAKE 1 TABLET BY MOUTH DAILY FOR MENOPAUSAL SYMPTOM 10/21/2013 01/07/2014 Inactive cyclobenzaprine 10 mg tablet RxNorm: 751906 Tablet(s) PO TAKE 1 TABLET BY MOUTH EVERY 8 HOURS NEEDED 10/21/20132013 Inactive Lasix 20 mg tablet RxNorm: 817923 Tablet(s) PO TAKE 2 TABLETS BY MOUTH EVERY MORNING AND 1 TABLET BY MOUTH AT 3 PM 10/17/2013 02/25/2016 Inactive Bactroban 2 % topical ointment RxNorm: 943385 1 Application TOP BID 10/10/2013 11/06/2013 Inactive Zofran 4 mg tablet RxNorm: 570224 1 Tablet(s) PO Q4-6H 201303/20/2014 Inactive Bactroban 2 % topical ointment RxNorm: 577035 1 Application TOP BID 09/27/2013 10/09/2013 Inactive hydrocodone 5 mg-acetaminophen 325 mg tablet RxNorm: 851250 Tablet(s) PO TAKE 1 TABLET BY MOUTH EVERY 6 HOURS NEEDED FOR PAIN 09/26/2013 12/11/2013 Inactive ( Appended: Controlled substance eRx refill - RxReferenceNumber: [id number]|1|0|1 ) hydrocodone 5 mg-acetaminophen 325 mg tablet RxNorm: 859100 1 Tablet(s) PO Q6 PRN 09/26/2013 01/24/2014 Inactive cyclobenzaprine 10 mg tablet RxNorm: 875277 Tablet(s) PO TAKE 1 TABLET BY MOUTH EVERY 8 HOURS NEEDED 09/16/2013 No Stop Date Active omeprazole 20 mg capsule,delayed release RxNorm: 196119 Capsule(s) PO TAKE 1 CAPSULE BY MOUTH TWICE DAILY 09/02/2013 Inactive Lasix 20 mg tablet RxNorm: Tablet(s) PO TAKE 2 TABLETS BY MOUTH EVERY MORNING AND 1 TABLET BY MOUTH AT 3 PM 09/02/2013 04/10/2016 Inactive Diflucan 150 mg tablet RxNorm: 658804 Tablet(s) PO TAKE 1 TABLET BY MOUTH EVERY OTHER DAY FOR 8 DOSES 08/29/20132013 Inactive Effexor XR 37.5 mg capsule,extended release RxNorm: 427471 Capsule(s) PO TAKE 2 CAPSULES BY MOUTH EVERY MORNING AND 1 CAPSULE BY MOUTH EVERY NIGHT AT BEDTIME 08/29/2013 11/03/2013 Inactive diltiazem ER (XR/XT) 240 mg capsule,extended release, controlled RxNorm: 411965 Capsule(s) PO TAKE 1 CAPSULE BY MOUTH EVERY DAY 201312/03/2013 Inactive Xanax 0.5 mg tablet RxNorm: 628224 1 Tablet(s) PO TID PRN 11/2013 No Stop Date Active (Appended: Controlled substance eRx refill - RxReferenceNumber: [id number]| [id number]|1|0|1) colestipol 1 gram tablet RxNorm: 7208973 Tablet(s) PO TAKE 1 TABLET BY MOUTH TWICE DAILY 08/26/2013 11/25/2013 Inactive Victoza 3-Babak 0.6 mg/0.1 mL (18 mg/3 mL) subcutaneous pen injector RxNorm: 455718 1.2 Milligram(s) SQ daily 0.6 x 2 weeks then increase to 1.2mg daily 08/19/2013 12/16/2013 Inactive Synthroid 88 mcg tablet RxNorm: 487931 1 Tablet(s) PO daily 12/09/2013 Inactive Lasix 20 mg tablet RxNorm: 174778 Tablet(s) PO TAKE 2 TABLETS BY MOUTH EVERY MORNING AND 2 TABLETS BY MOUTH AT 3 PM 08/12/2013 10/18/2016 Inactive Xanax 0.5 mg tablet RxNorm: 240133 1 Tablet(s) PO TID PRN No Stop Date Active (Appended: Controlled substance eRx refill - RxReferenceNumber: [id number]| [id number]|1|0|1) Lasix 20 mg tablet RxNorm: Tablet(s) PO TAKE 2 TABLETS BY MOUTH EVERY MORNING AND 1 TABLET BY MOUTH AT 3 PM 08/07/2013 08/11/2013 Inactive Voltaren 1 % topical gel RxNorm: 090273 4 Gram(s) TOP QID 08/0111/26/2013 Inactive Zyvox 600 mg tablet RxNorm: 009734 1 Tablet(s) PO BID 201307/27/2013 Inactive please call the office is this is too expensive for the pt Zyvox 600 mg tablet RxNorm: 618750 1 Tablet(s) PO BID 201307/17/2013 Inactive hydrocodone 5 mg-acetaminophen 325 mg tablet RxNorm: 5762983 1 Tablet(s) PO Q6 PRN 07/15/2013 09/26/2013 Inactive Zofran 4 mg tablet RxNorm: 729841 1 Tablet(s) PO Q4-6H 201310/02/2013 Inactive Lasix 20 mg tablet RxNorm: Tablet(s) PO TAKE 2 TABLETS BY MOUTH EVERY MORNING AND 1 TABLET BY MOUTH AT 3 PM 07/11/2013 10/18/2016 Inactive cyclobenzaprine 10 mg tablet RxNorm: 791372 1 Tablet(s) PO Q8 PRN 06/27/2013 08/25/2013 Inactive gabapentin 600 mg tablet RxNorm: 876714 1.5 Tablet(s) PO TID 01/02/2014 Inactive Lasix 20 mg tablet RxNorm: Tablet(s) PO TAKE 2 TABLETS BY MOUTH EVERY MORNING AND 1 TABLET BY MOUTH AT 3 PM 06/17/2013 07/10/2013 Inactive hydrocodone 5 mg-acetaminophen 325 mg tablet RxNorm: 620794 1 Tablet(s) PO Q6 PRN 06/10/2013 07/14/2013 Inactive hydrocortisone 2.5 % rectal cream RxNorm: 127128 1 Suppository RTL BID PRN 06/10/2013 06/29/2013 Inactive Flexeril 10 mg tablet RxNorm: 947392 1 Tablet(s) PO Q8 PRN 06/0406/26/2013 Inactive diltiazem ER (XR/XT) 240 mg capsule,extended release, controlled RxNorm: 928249 Capsule(s) PO TAKE 1 CAPSULE BY MOUTH EVERY DAY 201310/26/2017 Inactive omeprazole 20 mg capsule,delayed release RxNorm: 368908 Capsule(s) PO TAKE 1 CAPSULE BY MOUTH TWICE DAILY 05/24/2013 Inactive colestipol 1 gram tablet RxNorm: 7195532 Tablet(s) PO TAKE 1 TABLET BY MOUTH TWICE DAILY 05/23/2013 04/21/2016 Inactive Januvia 100 mg tablet RxNorm: 136104 1 Tablet(s) PO daily 201308/18/2013 Inactive Activella 0.5 mg-0.1 mg tablet RxNorm: 293695 Tablet(s) PO TAKE 1 TABLET BY MOUTH DAILY FOR MENOPAUSAL SYMPTOM 05/17/2013 Inactive Xanax 0.5 mg tablet RxNorm: 105344 1 Tablet(s) PO TID PRN 08/06/2013 Inactive (Appended: Controlled substance eRx refill - RxReferenceNumber: [id number]| [id number]|1|0|1) Kenalog 40 mg/mL suspension for injection RxNorm: 2828849 Milliliter(s) Inj 05/07/2013 05/07/2013 Inactive levofloxacin 500 mg tablet RxNorm: 232778 1 Tablet(s) PO daily pt to take 500mg on day#1, 3, 5, 7 and 1/2 tablet on days 2, 4, 6, and 8 05/0705/14/2013 Inactive Lyrica 50 mg capsule RxNorm: 885206 1 Capsule(s) PO TID 201206/26/2013 Inactive hydrocodone 5 mg-acetaminophen 500 mg tablet RxNorm: 842178 1 Tablet(s) PO Q6 PRN 04/22/2013 06/09/2013 Inactive Zofran 4 mg tablet RxNorm: 867187 1 Tablet(s) PO Q4-6H 201207/14/2013 Inactive Zofran 4 mg tablet RxNorm: 809264 1 Tablet(s) PO Q6 PRN 04/0404/08/2013 Inactive hydrocodone 5 mg-acetaminophen 500 mg tablet RxNorm: 038751 1 Tablet(s) PO Q6 PRN 03/21/2013 04/21/2013 Inactive Diflucan 150 mg tablet RxNorm: 159948 1 Tablet(s) PO every other day 1 pill po every other day x 8 doses 03/19/201306/26 Inactive potassium chloride ER 10 mEq tablet,extended release RxNorm: 745014 1 Tablet(s) PO QDAY PRN take with lasix 03/07/201302/2014 Inactive potassium chloride ER 10 mEq tablet,extended release RxNorm: 404775 1 Tablet(s) PO QDAY PRN take with lasix 03/04/2013 Inactive fluconazole 150 mg tablet RxNorm: 740158 1 Tablet(s) PO daily 03/01/2013 02/28/2013 Inactive fluconazole 150 mg tablet RxNorm: 970752 1 Tablet(s) PO daily 03/01/2013 03/05/2013 Inactive Combivent 18 mcg-103 mcg/actuation Aerosol Inhaler RxNorm: 592032 2 Puff(s) INH QID 02/12/2013 02/12/2013 Inactive Zofran 4 mg tablet RxNorm: 994617 1 Tablet(s) PO Q6 PRN 02/1104/03/2013 Inactive Lasix 20 mg tablet RxNorm: 491710 1 Tablet(s) PO BID one pill in morning and one pill in afternoon (3pm) 02/04/2013 Inactive Xopenex HFA 45 mcg/actuation Aerosol Inhaler RxNorm: 697747 2 INH QID 01/29/2013 09/21/2015 Inactive Effexor XR 37.5 mg capsule,extended release RxNorm: 920415 2 q am and 1 at hs Capsule(s) PO TAKE 2 CAPSULES BY MOUTH EVERY MORNING AND 1 CAPSULE EVERY NIGHT AT BEDTIME 01/29/2013 02/15/2016 Inactive fluconazole 150 mg tablet RxNorm: 691867 1 Tablet(s) PO daily 01/29/2013 02/02/2013 Inactive hydrocodone 5 mg-acetaminophen 500 mg tablet RxNorm: 065195 1 Tablet(s) PO Q6 PRN 01/29/2013 03/20/2013 Inactive Effexor XR 37.5 mg capsule,extended release RxNorm: 595776 Capsule(s) PO 01/29/2013 08/28/2013 Inactive TAKE 2 CAPSULES BY MOUTH EVERY MORNING AND 1 CAPSULE EVERY NIGHT AT BEDTIME doxycycline hyclate 100 mg tablet RxNorm: 464086 1 Tablet(s) PO BID 01/01/2013 01/10/2013 Inactive doxycycline hyclate 100 mg tablet RxNorm: 824659 1 Tablet(s) PO BID 01/01/2013 12/31/2012 Inactive Synthroid 75 mcg tablet RxNorm: 509324 1 Tablet(s) PO daily 06/29/2013 Inactive Synthroid 75 mcg tablet RxNorm: 495176 1 Tablet(s) PO daily 12/31/2012 Inactive Xanax 0.5 mg tablet RxNorm: 645294 Tablet(s) PO TAKE 1/2 TO 1 TABLET BY MOUTH EVERY 8 HOURS NEEDED FOR ANXIETY 12/27/2012 05/06/2013 Inactive (Appended: Controlled substance eRx refill - [facility]Re[facility]ber: [id number]|1|0|1) Lasix 20 mg tablet RxNorm: 418171 1 Tablet(s) PO daily 201202/03/2013 Inactive Santyl 250 unit/gram Topical Ointment RxNorm: 8942368 1 Application TOP daily 12/20/2012 12/29/2012 Inactive Levaquin 500 mg tablet RxNorm: 707373 1 Tablet(s) PO daily 05/201212/26/2012 Inactive acyclovir 400 mg tablet RxNorm: 135742 1 Tablet(s) PO TID 12/0312/09/2012 Inactive acyclovir 400 mg tablet RxNorm: 063628 1 Tablet(s) PO TID 12/0312/02/2012 Inactive fluconazole 150 mg tablet RxNorm: 580861 1 Tablet(s) PO daily 11/26/2012 11/30/2012 Inactive Effexor XR 37.5 mg capsule,extended release RxNorm: 448920 Capsule(s) PO TAKE 2 CAPSULES BY MOUTH EVERY MORNING AND 1 CAPSULE EVERY NIGHT AT BEDTIME 11/14/2012 01/28/2013 Inactive albuterol sulfate 1.25 mg/3 mL solution for nebulization RxNorm: 309408 3 Milliliter(s) INH TID 10/29/20122012 Inactive 1 box Cartia XT 180 mg capsule,extended release RxNorm: 783040 1 Capsule(s) PO daily TAKE 1 CAPSULE BY MOUTH AT BEDTIME ..TAKE THIS IN ADDITION TO 240 MG IN THE MORNING 10/29/2012 11/26/2013 Inactive acyclovir 800 mg tablet RxNorm: 857797 1 Tablet(s) PO BID 10/2911/04/2012 Inactive Diflucan 150 mg tablet RxNorm: 691008 1 Tablet(s) PO daily 10/14/2012 Inactive TAKE 1 TABLET BY MOUTH EVERY DAY Toprol XL 100 mg tablet,extended release RxNorm: 485095 1 Tablet(s) PO BID 10/11/2012 09/05/2013 Inactive Zithromax Z-Babak 250 mg tablet RxNorm: 557992 Tablet(s) PO UD as directed. 1 refill , please take back to back 10/05/2012 No Stop Date Active Kenalog 40 mg/mL Susp for Injection RxNorm: 6634104 1 Milliliter(s) Inj QID 09/21/2012 05/07/2013 Inactive fluconazole 150 mg tablet RxNorm: 781470 1 Tablet(s) PO every other day x 5 doses 09/12/2012 11/25/2012 Inactive levothyroxine 50 mcg tablet RxNorm: 975473 1 Tablet(s) PO daily 09/06/2012 12/31/2012 Inactive atorvastatin 40 mg tablet RxNorm: 263607 1 Tablet(s) PO daily 09/06/2012 08/31/2013 Inactive TAKE 1 TABLET BY MOUTH DAILY (THIS IS AN INCREASE IN DOSAGE) Xanax 0.5 mg tablet RxNorm: 201799 Tablet(s) PO TAKE 1/2 TO 1 TABLET BY MOUTH EVERY 8 HOURS NEEDED FOR ANXIETY 08/27/2012 12/26/2012 Inactive (Appended: Controlled substance eRx refill - RxReferenceNumber: [id number]|1|0|1) Zofran 4 mg tablet RxNorm: 745664 1 Tablet(s) PO Q6 PRN 08/1302/10/2013 Inactive Cipro 500 mg tablet RxNorm: 641370 1 Tablet(s) PO BID 201208/07/2012 Inactive Cipro 500 mg tablet RxNorm: 056315 1 Tablet(s) PO BID 201208/12/2012 Inactive Flagyl 500 mg tablet RxNorm: 691901 1 Tablet(s) PO TID 201208/12/2012 Inactive cefdinir 300 mg capsule RxNorm: 500785 1 Capsule(s) PO BID 08/201207/29/2012 Inactive nystatin 100,000 unit/mL Oral Susp RxNorm: 800007 6 Unit(s) PO QID 07/06/2012 07/15/2012 Inactive Kenalog 40 mg/mL Susp for Injection RxNorm: 1641329 1 Milliliter(s) Inj 07/06/2012 07/06/2012 Inactive Zithromax 500 mg tablet RxNorm: 4172680 1 Tablet(s) PO daily 07/10/2012 Inactive metformin 850 mg tablet RxNorm: 476432 1/2 Tablet(s) PO TID 09/201208/24/2012 Inactive TAKE 1 TABLET BY MOUTH IN THE MORNING, 1/2 TABLET AT NOON, AND 1 TABLET IN THE EVENING Lyrica 50 mg capsule RxNorm: 056175 1 Capsule(s) PO TID 201206/25/2012 Inactive Diflucan 150 mg tablet RxNorm: 055542 1 Tablet(s) PO daily 05/201206/25/2012 Inactive TAKE 1 TABLET BY MOUTH EVERY DAY Levaquin 500 mg tablet RxNorm: 995020 1 Tablet(s) PO daily 06/19/2012 Inactive Pneumovax 23 25 mcg/0.5 mL Injection RxNorm: 136933 1/2 Milliliter(s) Inj 06/07/2012 06/07/2012 Inactive metformin 850 mg tablet RxNorm: 417204 1/2 Tablet(s) PO BID 06/25/2012 Inactive TAKE 1 TABLET BY MOUTH IN THE MORNING, 1/2 TABLET AT NOON, AND 1 TABLET IN THE EVENING cefdinir 300 mg capsule RxNorm: 556322 1 Capsule(s) PO BID 02/201305/30/2012 Inactive cefdinir 300 mg capsule RxNorm: 012308 1 Capsule(s) PO BID 02/201306/06/2012 Inactive prednisone 10 mg tablets in a dose pack RxNorm: 649285 Tablet(s) PO UD 6-5-4-3-2- 1 05/31/2012 05/06/2013 Inactive Cipro 500 mg tablet RxNorm: 097896 1 Tablet(s) PO BID 201206/03/2012 Inactive Xanax 0.5 mg tablet RxNorm: 501602 Tablet(s) PO TAKE 1/2 TO 1 TABLET BY MOUTH EVERY 8 HOURS NEEDED FOR ANXIETY 05/28/2012 08/27/2012 Inactive (Appended: Controlled substance eRx refill - RxReferenceNumber: [id number]|1|0|1) Cartia XT 180 mg capsule,extended release RxNorm: 849437 Capsule(s) PO TAKE 1 CAPSULE BY MOUTH AT BEDTIME ..TAKE THIS IN ADDITION TO 240 MG IN THE MORNING 05/24/2012 10/28/2012 Inactive Diflucan 150 mg tablet RxNorm: 503323 1 Tablet(s) PO daily 06/201205/26/2012 Inactive TAKE 1 TABLET BY MOUTH EVERY DAY Cartia XT 240 mg capsule,extended release RxNorm: 488450 1 Capsule(s) PO QAM 05/23/2012 09/06/2012 Inactive in addition to 180mg q pm omeprazole 20 mg capsule,delayed release RxNorm: 728244 Capsule(s) PO TAKE 1 CAPSULE BY MOUTH TWICE DAILY 05/21/2012 Inactive diltiazem ER (XR/XT) 240 mg capsule,extended release, controlled RxNorm: 433431 1 Capsule(s) PO daily TAKE ONE CAPSULE BY MOUTH EVERY DAY 05/21/2012 05/30/2013 Inactive Toprol XL 25 mg tablet,extended release RxNorm: 099490 1 Tablet(s) PO QPM take with 50mg (1/2 tab of 100mg) each evening. Continue 100mg in the morning. 05/17/2012 05/27/2012 Inactive Activella 0.5 mg-0.1 mg tablet RxNorm: 0361227 Tablet(s) PO TAKE 1 TABLET BY MOUTH DAILY FOR MENOPAUSAL SYMPTOM 05/09/2012 05/16/2013 Inactive colestipol 1 gram tablet RxNorm: 5343546 Tablet(s) PO TAKE 1 TABLET BY MOUTH TWICE DAILY 05/08/2012 04/21/2016 Inactive Kenalog 40 mg/mL Susp for Injection RxNorm: 6593630 1 Milliliter(s) Inj 05/02/2012 05/02/2012 Inactive Xanax 0.5 mg tablet RxNorm: 494328 Tablet(s) PO 04/16/2012 05/28/2012 Inactive TAKE 1/2 TO 1 TABLET BY MOUTH EVERY 8 HOURS NEEDED FOR ANXIETY (Appended: Controlled substance eRx refill - RxReferenceNumber: [id number]|1|0|1) Diflucan 150 mg tablet RxNorm: 648620 1 Tablet(s) PO daily 05/22/2012 Inactive TAKE 1 TABLET BY MOUTH EVERY DAY Cipro 500 mg tablet RxNorm: 827490 1 Tablet(s) PO BID 201104/19/2012 Inactive Zithromax Z-Babak 250 mg tablet RxNorm: 122516 Tablet(s) PO UD 05/30/2012 Inactive metformin 850 mg tablet RxNorm: 794108 Tablet(s) PO take one pill by mouth in AM, 1/2 at noon, and 1 pill in the evening. 03/16/2012 06/06/2012 Inactive TAKE 1 TABLET BY MOUTH IN THE MORNING, 1/2 TABLET AT NOON, AND 1 TABLET IN THE EVENING Xanax 0.5 mg tablet RxNorm: 748734 Tablet(s) PO 03/05/2012 04/15/2012 Inactive TAKE 1/2 TO 1 TABLET BY MOUTH EVERY 8 HOURS NEEDED FOR ANXIETY (Appended: Controlled substance eRx refill - RxReferenceNumber: [id number]|1|0|1) potassium chloride ER 10 mEq tablet,extended release RxNorm: 057832 1 Tablet(s) PO QDAY PRN take with lasix 03/05/201204/2013 Inactive potassium chloride ER 10 mEq tablet,extended release RxNorm: 925876 1 Tablet(s) PO QDAY PRN take with lasix 02/28/2012 Inactive Lasix 20 mg tablet RxNorm: 016915 Tablet(s) PO QDAY PRN 02/2708/25/2012 Inactive doxycycline hyclate 100 mg capsule RxNorm: 251329 1 Capsule(s) PO BID 02/27/2012 03/04/2012 Inactive Effexor XR 37.5 mg capsule,extended release RxNorm: 111786 Capsule(s) PO 02/26/2012 01/28/2013 Inactive TAKE 2 CAPSULES BY MOUTH EVERY MORNING AND 1 CAPSULE EVERY NIGHT AT BEDTIME Lomotil 2.5 mg-0.025 mg tablet RxNorm: 7175896 Tablet(s) PO 07/201103/05/2012 Inactive 1 after each loose bm limit 4 per day doxycycline hyclate 100 mg capsule RxNorm: 061444 1 Capsule(s) PO BID 02/15/2012 02/21/2012 Inactive Diflucan 150 mg tablet RxNorm: 700951 Tablet(s) PO daily 201102/21/2012 Inactive TAKE 1 TABLET BY MOUTH EVERY DAY colestipol,micronized 1 gram tablet RxNorm: 6645045 Tablet(s) PO 02/06/2012 04/21/2016 Inactive TAKE 1 TABLET BY MOUTH TWICE DAILY Effexor XR 37.5 mg capsule,extended release RxNorm: 071475 Capsule(s) PO 02/06/2012 02/16/2016 Inactive TAKE 2 CAPSULES BY MOUTH EVERY MORNING AND 1 CAPSULE EVERY NIGHT AT BEDTIME potassium chloride ER 10 mEq tablet,extended release RxNorm: 371116 1 Tablet(s) PO QDAY PRN take with lasix 02/01/201212/2011 Inactive Levaquin 500 mg tablet RxNorm: 769724 1 Tablet(s) PO daily 04/201202/07/2012 Inactive Diflucan 150 mg tablet RxNorm: 719421 Tablet(s) PO 01/27/2012 02/14/2012 Inactive TAKE 1 TABLET BY MOUTH EVERY DAY Effexor XR 37.5 mg capsule,extended release RxNorm: 576336 Capsule(s) PO 01/05/2012 02/05/2012 Inactive TAKE 2 CAPSULES BY MOUTH EVERY MORNING , AND 1 CAPSULE BY MOUTH EVERY NIGHT AT BEDTIME Effexor XR 37.5 mg capsule,extended release RxNorm: 512087 Capsule(s) PO 12/29/2011 01/04/2012 Inactive TAKE 2 CAPSULES BY MOUTH EVERY MORNING , AND 1 CAPSULE BY MOUTH EVERY NIGHT AT BEDTIME Diflucan 150 mg tablet RxNorm: 351361 Tablet(s) PO 12/29/2011 04/09/2012 Inactive TAKE 1 TABLET BY MOUTH EVERY DAY Cipro 500 mg tablet RxNorm: 952785 1 Tablet(s) PO BID 201101/07/2012 Inactive Toprol XL 100 mg tablet,extended release RxNorm: 307278 Tablet(s) PO as doctor directed one tab in am and 1/2 at night 11/30/2011 10/10/2012 Inactive Phenergan 25 mg/mL Injection RxNorm: 796065 Milliliter(s) Inj 11/30/2011 11/30/2011 Inactive Toprol XL 100 mg 24 hr Tab RxNorm: 370858 1.5 Tablet(s) PO as doctor directed one tab in am and 1/2 at night 11/17/201102/2012 Inactive Xopenex HFA 45 mcg/actuation Aerosol Inhaler RxNorm: 931583 2 INH QID 11/08/2011 12/01/2012 Inactive Effexor XR 150 mg 24 hr Cap RxNorm: 007770 1 Capsule(s) PO daily 10/24/2011 01/04/2012 Inactive Xanax 0.5 mg tablet RxNorm: 927721 1/2-1 Tablet(s) PO Q8 PRN 10/20/2011 03/05/2012 Inactive levothyroxine 25 mcg tablet RxNorm: 549586 Tablet(s) PO 201109/05/2012 Inactive TAKE 1 TABLET BY MOUTH DAILY Xanax 0.5 mg Tab RxNorm: 107383 1/2-1 Tablet(s) PO Q8 PRN 09/26/2011 10/19/2011 Inactive potassium chloride ER 10 mEq Tab RxNorm: 771339 1 Tablet(s) PO daily 09/20/2011 09/24/2011 Inactive Lasix 20 mg Tab RxNorm : 577133 1 Tablet(s) PO daily 09/20/2011 09/24/2011 Inactive Xanax 0.5 mg Tab RxNorm: 493418 1/2-1 Tablet(s) PO Q8 PRN 09/12/2011 09/25/2011 Inactive Xanax 0.5 mg Tab RxNorm: 781545 1/2-1 Tablet(s) PO Q8 PRN 08/24/2011 09/11/2011 Inactive Lipitor 20 mg tablet RxNorm: 835142 Tablet(s) PO 08/22/2011 09/05/2012 Inactive TAKE 1 TABLET BY MOUTH DAILY (THIS IS AN INCREASE IN DOSAGE) Cipro 500 mg Tab RxNorm: 804777 1 Tablet(s) PO BID 201110/24/2011 Inactive Flagyl 500 mg Tab RxNorm: 265721 1 Tablet(s) PO TID 201110/24/2011 Inactive Diflucan 150 mg Tab RxNorm: 347388 1 Tablet(s) PO daily 201110/24/2011 Inactive Kenalog 40 mg/mL Susp for Injection RxNorm: 1888582 1 Milliliter(s) Inj 08/01/2011 10/24/2011 Inactive FreeStyle Lancets RxNorm: 1 test Miscellaneous TID 201107/08/2014 Inactive dispense quantity sufficient for three times daily testing for diabetes FreeStyle Test strips RxNorm: 1 Miscellaneous BID 07/21/2011 08/13/2012 Inactive please give lancets alsodx 250.02 Xanax 0.25 mg Tab RxNorm: 659005 1 Tablet(s) PO Q8 PRN 07/06 No Stop Date Active colestipol 1 gram Tab RxNorm: 9148680 Tablet(s) PO 07/04/2011 04/21/2016 Inactive TAKE 1 TABLET BY MOUTH TWICE DAILY DIRECTED colestipol 1 gram tablet RxNorm: 4785511 1 Tablet(s) PO BID 07/03/2011 Inactive Cartia XT 180 mg capsule,extended release RxNorm: 897540 1 Capsule(s) PO QHS 06/30/2011 11/16/2011 Inactive in addition to 240mg q am venlafaxine 37.5 mg Tab RxNorm: 746066 1 Tablet(s) PO BID 06/2406/29/2011 Inactive prednisone 5 mg Tab RxNorm: 888471 Tablet(s) PO UD 2011 10/24/2011 Inactive six day taper #21 Lyrica 50 mg capsule RxNorm: 728321 1 Capsule(s) PO TID 201108/18/2011 Inactive Diflucan 150 mg tablet RxNorm: 848610 1 Tablet(s) PO daily 06/24/2011 Inactive levofloxacin 500 mg Tab RxNorm: 517386 1 Tablet(s) PO daily 08/15/2011 Inactive azithromycin 250 mg Tab RxNorm: 097491 PO 05/23/2011 06/20/2011 Inactive omeprazole 20 mg capsule,delayed release RxNorm: 734312 Capsule(s) PO 05/10/2011 05/20/2012 Inactive TAKE 1 CAPSULE BY MOUTH TWICE DAILY;Patient requests 90 day supply diltiazem ER (XR/XT) 240 mg capsule,extended release, controlled RxNorm: 596729 Capsule(s) PO 04/19/2011 05/21/2012 Inactive TAKE 1 CAPSULE BY MOUTH EVERY MORNING;Patient requests 90 day supply Kenalog 40 mg/mL Susp for Injection RxNorm: 1202473 1 Milliliter(s) Inj 04/18/2011 06/20/2011 Inactive clindamycin 300 mg Cap RxNorm: 999671 1 Capsule(s) PO BID 04/1806/20/2011 Inactive lisinopril-hydrochlorothiazide 20 mg-12.5 mg Tab RxNorm: 553897 2 Tablet(s) PO daily 04/18/2011 10/24/2011 Inactive fluconazole 150 mg Tab RxNorm: 353971 1 Tablet(s) PO daily 07/201006/20/2011 Inactive Activella 0.5 mg-0.1 mg tablet RxNorm: 4101899 Tablet(s) PO 05/201005/08/2012 Inactive TAKE 1 TABLET BY MOUTH DAILY FOR MENOPAUSAL SYMPTOM diltiazem ER (XR/XT) 240 mg Continuous Release Cap RxNorm: 719493 1 Capsule(s) PO daily 03/17/2011 03/16/2011 Inactive diltiazem ER (XR/XT) 240 mg Continuous Release Cap RxNorm: 211629 Capsule(s) PO 03/17/2011 06/20/2011 Inactive TAKE 1 CAPSULE BY MOUTH EVERY MORNING metformin 850 mg tablet RxNorm: 843740 1 Tablet(s) PO as doctor directed take one pill by mouth in AM, 1/2 at noon, and 1 pill in the evening. 01/21/2011 04/20/2011 Inactive Xopenex 1.25 mg/3 mL solution for nebulization RxNorm: 106457 3 Milliliter(s) INH Q6 PRN No Start Date Active Novolog Flexpen U-100 Insulin aspart 100 unit/mL subcutaneous RxNorm: 5600106 10 units with meals plus SSI in [...] 301-325 Lomotil 2.5 mg-0.025 mg tablet RxNorm: 2234365 Tablet(s) PO No Start Date 02/21/2012 Inactive 1 after each loose bm limit 4 per day Novolog Flexpen U-100 Insulin aspart 100 unit/mL subcutaneous RxNorm: 0062808 10 Unit(s) SQ AC No Start Date 10/26 Inactive with sliding scale-Dr Yanna Grandesilamonte FlexTouch U-100 100 unit/mL (3 mL) subcutaneous insulin pen RxNorm: 5783618 40 Unit(s) SQ daily No Start Date Inactive gabapentin 600 mg tablet RxNorm: 143365 1 Tablet(s) PO TID No Start Date 06/26/2013 Inactive Effexor XR 37.5 mg capsule,extended release RxNorm: 456603 1 Capsule(s) PO BID No Start Date 10/23/2011 Inactive Levemir FlexTouch 100 unit/mL (3 mL) subcutaneous insulin pen RxNorm: 557039 50 Unit(s) SQ BID No Start Date 04/24/2017 Inactive Combivent Respimat 20 mcg-100 mcg/actuation solution for inhalation RxNorm: 5873640 1 INH QID No Start Date 05/11/2014 Inactive Xanax 0.5 mg Tab RxNorm: 725354 1/2-1 Tablet(s) PO Q8 PRN No Start Date 08/23/2011 Inactive Xopenex HFA 45 mcg/actuation Aerosol Inhaler RxNorm: 367387 2 INH QID No Start Date 11/07/2011 Inactive promethazine 25 mg tablet RxNorm: 527528 1 Tablet(s) PO Q8 as needed No Start Date 08/12/2015 Inactive colestipol 1 gram Tab RxNorm: 0045331 1 Tablet(s) PO BID No Start Date 07/03/2011 Inactive Cartia XT 240 mg capsule,extended release RxNorm: 700192 1 Capsule(s) PO QAM No Start Date 05/22/2012 Inactive in addition to 180mg q pm Lipitor 20 mg Tab RxNorm: 054910 1 Tablet(s) PO daily No Start Date 08/21/2011 Inactive FreeStyle Test Strips RxNorm: 1 Miscellaneous BID No Start Date 07/20/2011 Inactive Touphylliso SoloStar U-300 Insulin 300 unit/mL (1.5 mL) subcutaneous pen RxNorm: 6065204 40 Unit(s) SQ BID No Start Date 10/26/2017 Inactive Diflucan 150 mg tablet RxNorm: 545044 1 Tablet(s) PO daily 1 pill po every other day x 8 doses No Start Date 03/18/2013 Inactive hydrocodone 5 mg-acetaminophen 500 mg tablet RxNorm: 611258 1 Tablet(s) PO Q6 PRN No Start Date 01/28/2013 Inactive Lasix 20 mg tablet RxNorm: 093187 Tablet(s) PO QDAY PRN No Start Date 02/27/2012 Inactive Promethazine VC 6.25 mg-5 mg/5 mL Syrup RxNorm: 8272544 1-2 PO Q6 PRN No Start Date 10/07/2013 Inactive promethazine 25 mg tablet RxNorm: 717847 1 Tablet(s) PO Q6 PRN No Start Date 02/09/2017 Inactive digoxin 125 mcg tablet RxNorm: 686075 1 Tablet(s) PO daily No Start Date 06/20/2017 Inactive Xanax 0.25 mg Tab RxNorm: 639567 1 Tablet(s) PO Q8 PRN No Start Date 07/05/2011 Inactive Diflucan 150 mg tablet RxNorm: 571703 1 Tablet(s) PO every other day x 4 doses No Start Date 04/09/2014 Inactive Carafate 100 mg/mL Oral Susp RxNorm: 699106 2 Teaspoon(s) PO daily No Start Date 10/24/2011 Inactive prednisone 5 mg Tab RxNorm: 785349 Tablet(s) PO UD No Start Date 06/22/2011 Inactive six day taper #21 Tessalon Perles 100 mg capsule RxNorm: 168121 2 Capsule(s) PO TID as needed No Start Date 05/16/2017 Inactive Bactroban 2 % topical ointment RxNorm: 475798 1 Application TOP BID No Start Date 09/26/2013 Inactive Phenergan 25 mg tablet RxNorm: 725141 1 Tablet(s) PO Q8 as needed nausea No Start Date 06/28/2015 Inactive flecainide 50 mg tablet RxNorm: 182929 1 Tablet(s) PO BID No Start Date 02/01/2016 Inactive Activella 0.5 mg-0.1 mg Tab RxNorm: 9237780 1 Tablet(s) PO daily No Start Date 03/21/2011 Inactive hydrocodone 10 mg-acetaminophen 325 mg tablet RxNorm: 395401 1 Tablet(s) PO Q6 as needed No Start Date 02/04/2016 Inactive lisinopril 20 mg Tab RxNorm: 823899 1 Tablet(s) PO daily No Start Date 06/20/2011 Inactive prednisone 10 mg tablets in a dose pack RxNorm: 468011 Tablet(s) PO UD 6-5-4-3-2- 1 No Start Date 05/30/2012 Inactive hydrocodone 7.5 mg-acetaminophen 325 mg tablet RxNorm: 551757 1 Tablet(s) PO Q6 PRN No Start Date 10/06/2013 Inactive hyoscyamine 0.125 mg sublingual tablet RxNorm: 5586369 1 Tablet(s) SL TID as needed No Start Date 05/16/2017 Inactive Cartia XT 180 mg 24 hr Cap RxNorm: 460213 1 Capsule(s) PO QHS No Start Date 06/29/2011 Inactive in addition to 240mg q am Zofran 4 mg tablet RxNorm: 928868 1 Tablet(s) PO Q6 PRN No Start Date 08/12/2012 Inactive omeprazole 20 mg Cap, Delayed Release RxNorm: 541510 1 Capsule(s) PO BID No Start Date 05/09/2011 Inactive venlafaxine 37.5 mg Tab RxNorm: 654976 1 Tablet(s) PO BID No Start Date 10/24/2011 Inactive Vesicare 10 mg tablet RxNorm: 663074 1 Tablet(s) PO daily No Start Date 09/28/2015 Inactive levothyroxine 25 mcg Tab RxNorm: 857347 1 Tablet(s) PO daily No Start Date 10/18/2011 Inactive Zithromax Z-Babak 250 mg tablet RxNorm: 080497 Tablet(s) PO UD No Start Date 04/01/2012 Inactive Januvia 100 mg tablet RxNorm: 671895 1 Tablet(s) PO daily No Start Date 05/22/2013 Inactive Lantus Solostar 100 unit/mL (3 mL) subcutaneous insulin pen RxNorm: 015945 Unit( s) SQ No Start Date 04/17/2017 Inactive 10 units q am and 50units at night fluconazole 150 mg tablet RxNorm: 085184 1 Tablet(s) PO every other day x 5 doses No Start Date 09/11/2012 Inactive Toprol XL 25 mg 24 hr Tab RxNorm: 688126 1 Tablet(s) PO daily No Start Date 11/16/2011 Inactive Medication Administered Medication Codes Instructions Start Date Status Kenalog 40 mg/mL suspension for injection RxNorm: 2304218 Milliliter 06/26/2015 No longer Active Kenalog 40 mg/mL suspension for injection RxNorm: 6596700 Milliliter 05/07/2013 No longer Active Kenalog 40 mg/mL Susp for Injection RxNorm: 3872609 1Milliliter 07/06/2012 No longer Active Pneumovax 23 25 mcg/0.5 mL Injection RxNorm: 396382 1/2Milliliter 06/07/2012 No longer Active Kenalog 40 mg/mL Susp for Injection RxNorm: 9152260 1Milliliter 05/02/2012 No longer Active Phenergan 25 mg/mL Injection RxNorm: 715646 Milliliter 11/30/2011 No longer Active Immunizations Vaccine [...] 26.2 pg 02/20/2018 Cbc With Differential Ord2 [place]% 5.7 % 02/20/2018 Cbc With Differential Ord2 [...] 1.61 K/ul 02/20/2018 Cbc With Differential Ord2 [place] ABS# 0.5 K/ul 02/20/2018 Cbc With Differential Ord2 Eos ABS# 0.1 K/ul 02/20/2018 Cbc With Differential Ord2 Baso ABS# 0.0 K/ul 02/20/2018 Comp Metabolic Dnl080 NA 134 mEq/L 02/20/2018 Comp Metabolic Udg898 K 3.9 mEq/L 02/20/2018 Comp Metabolic Qst215 CL 90 mEq/L 02/20/2018 Comp Metabolic Ftq418 CO2 32.0 mEq/L 02/20/2018 Comp Metabolic Sjk689 ANION GAP 16 02/20/2018 Comp Metabolic Qtn127 GLUCOSE 287 mg/dL 02/20/2018 Comp Metabolic Hil047 Creat 0.8 mg/dL 02/20/2018 Comp Metabolic Vzu408 eGFR 72 ml/min/1.73m2 02/20/2018 Comp Metabolic Wxy707 BUN 13 mg/dL 02/20/2018 Comp Metabolic Jlo399 B/C Ratio 15.5 Ratio 02/20/2018 Comp Metabolic Lke857 CALCIUM 9.0 mg/dL 02/20/2018 Comp Metabolic Aru678 ALK PHOS 120 U/L 02/20/2018 Comp Metabolic Sng405 AST(SGOT) 21 U/L 02/20/2018 Comp Metabolic Hyc123 ALT(SGPT) 17 U/L 02/20/2018 Comp Metabolic Wgu350 BILI T 0.4 mg/dL 02/20/2018 Comp Metabolic Wsi996 ALBUMIN 3.8 g/dL 02/20/2018 Comp Metabolic Exv466 TPRO 6.9 g/dL 02/20/2018 Comp Metabolic Eey337 GLOB 3.1 g/dL 02/20/2018 Comp Metabolic Irz507 A/G Ratio 1.3 Ratio 02/20/2018 Comp Metabolic Gcq188 Osmo 279 mOsmo 02/20/2018 Vitamin D 25 Oh Tcx4150 VITAMIN D, 25 HYDROXY 26.48 ng/mL Digoxin Ord9 DIGOXIN 0.7 NG/ML 02/20/2018 Culture Urine [id number] URINE CULTURE SEE NOTES 12/01/2017 Urine Culture Ucult Complete >100,000 col/ml aerobic growth sent to ref lab 11/29/2017 Comp Metabolic Qcb947 NA 135 mEq/L 08/21/2017 Comp Metabolic Qte634 K 4.6 mEq/L 08/21/2017 Comp Metabolic Exe447 CL 92 mEq/L 08/21/2017 Comp Metabolic Dyt690 CO2 32.0 mEq/L 08/21/2017 Comp Metabolic Cbv318 ANION GAP 16 08/21/2017 Comp Metabolic Ahf306 GLUCOSE 298 mg/dL 08/21/2017 Comp Metabolic Bsb143 Creat 1.1 mg/dL 08/21/2017 Comp Metabolic Fwq399 eGFR 54 ml/min/1.73m2 08/21/2017 Comp Metabolic Dzh148 BUN 22 mg/dL 08/21/2017 Comp Metabolic Fxj245 B/C Ratio 20.6 Ratio 08/21/2017 Comp Metabolic Qgj130 CALCIUM 9.3 mg/dL 08/21/2017 Comp Metabolic Qrb519 ALK PHOS 145 U/L 08/21/2017 Comp Metabolic Csk235 AST(SGOT) 31 U/L 08/21/2017 Comp Metabolic Ptq171 ALT(SGPT) 19 U/L 08/21/2017 Comp Metabolic Vms779 BILI T 0.3 mg/dL 08/21/2017 Comp Metabolic Fvh592 ALBUMIN 3.8 g/dL 08/21/2017 Comp Metabolic Wtg576 TPRO 7.1 g/dL 08/21/2017 Comp Metabolic Chy320 GLOB 3.3 g/dL 08/21/2017 Comp Metabolic Kcq433 A/G Ratio 1.2 Ratio 08/21/2017 Comp Metabolic Ixf738 Osmo 285 mOsmo 08/21/2017 Cbc With Differential [...] 88.1 fl 08/18/2017 Cbc With Differential Ord2 [place]% 6.9 % 08/18/2017 Cbc With Differential Ord2 [...] 2.05 K/ul 08/18/2017 Cbc With Differential Ord2 [place] ABS# 0.7 K/ul 08/18/2017 Cbc With Differential Ord2 Eos ABS# 0.3 K/ul 08/18/2017 Cbc With Differential Ord2 Baso ABS# 0.0 K/ul 08/18/2017 %Hba1C Frs226 % HbA1c 07025-0 11.5 % 06/13/2017 %Hba1C Ggx181 Gluc Ave 283 mg/dL 06/13/2017 Cbc With [...] 20.0 % 03/27/2017 Cbc With Differential Ord2 [place]% 7.2 % 03/27/2017 Cbc With Differential Ord2 [...] 2.11 K/ul 03/27/2017 Cbc With Differential Ord2 [place] ABS# 0.8 K/ul 03/27/2017 Cbc With Differential Ord2 Eos ABS# 0.2 K/ul 03/27/2017 Cbc With Differential Ord2 Baso ABS# 0.0 K/ul 03/27/2017 Digoxin Ord9 DIGOXIN 0.5 NG/ML 03/27/2017 Comp Metabolic Xvb583 NA 136 mEq/L 03/27/2017 Comp Metabolic Zgx236 K 4.1 mEq/L 03/27/2017 Comp Metabolic Loe510 CL 90 mEq/L 03/27/2017 Comp Metabolic Gdq403 CO2 34.0 mEq/L 03/27/2017 Comp Metabolic Tqm161 ANION GAP 16 03/27/2017 Comp Metabolic Pce801 GLUCOSE 325 mg/dL 03/27/2017 Comp Metabolic Ebr739 Creat 1.0 mg/dL 03/27/2017 Comp Metabolic Thm008 eGFR 62 ml/min/1.73m2 03/27/2017 Comp Metabolic Yyw418 BUN 15 mg/dL 03/27/2017 Comp Metabolic Bse665 B/C Ratio 15.8 Ratio 03/27/2017 Comp Metabolic Sdz492 CALCIUM 9.5 mg/dL 03/27/2017 Comp Metabolic Plk654 ALK PHOS 159 U/L 03/27/2017 Comp Metabolic Dst844 AST(SGOT) 57 U/L 03/27/2017 Comp Metabolic Fge326 ALT(SGPT) 32 U/L 03/27/2017 Comp Metabolic Hkj066 BILI T 0.4 mg/dL 03/27/2017 Comp Metabolic Ddu744 ALBUMIN 4.3 g/dL 03/27/2017 Comp Metabolic Ubk933 TPRO 7.3 g/dL 03/27/2017 Comp Metabolic Ecq348 GLOB 3.0 g/dL 03/27/2017 Comp Metabolic Vqh317 A/G Ratio 1.4 Ratio 03/27/2017 Comp Metabolic Kda732 Osmo 285 mOsmo 03/27/2017 Magnesium Ord90 Mag 2.4 mg/dL 02/27/2017 Comp Metabolic Vap360 NA 138 mEq/L 02/27/2017 Comp Metabolic Ymk117 K 4.2 mEq/L 02/27/2017 Comp Metabolic Apq766 CL 91 mEq/L 02/27/2017 Comp Metabolic Www566 CO2 36.0 mEq/L 02/27/2017 Comp Metabolic Syv431 ANION GAP 15 02/27/2017 Comp Metabolic Bpc849 GLUCOSE 297 mg/dL 02/27/2017 Comp Metabolic Yrc674 Creat 0.9 mg/dL 02/27/2017 Comp Metabolic Ufx803 eGFR 71 ml/min/1.73m2 02/27/2017 Comp Metabolic Den831 BUN 12 mg/dL 02/27/2017 Comp Metabolic Pse037 B/C Ratio 14.1 Ratio 02/27/2017 Comp Metabolic Ucp990 CALCIUM 9.0 mg/dL 02/27/2017 Comp Metabolic Sms118 ALK PHOS 146 U/L 02/27/2017 Comp Metabolic Twx632 AST(SGOT) 28 U/L 02/27/2017 Comp Metabolic Dgo656 ALT(SGPT) 12 U/L 02/27/2017 Comp Metabolic Swo148 BILI T 0.3 mg/dL 02/27/2017 Comp Metabolic Exs256 ALBUMIN 3.8 g/dL 02/27/2017 Comp Metabolic Mbz137 TPRO 6.6 g/dL 02/27/2017 Comp Metabolic Wra583 GLOB 2.8 g/dL 02/27/2017 Comp Metabolic Rse851 A/G Ratio 1.3 Ratio 02/27/2017 Comp Metabolic Rkt146 Osmo 286 mOsmo 02/27/2017 Digoxin Ord9 DIGOXIN <0.2 NG/ML 02/14/2017 Comp Metabolic Mms525 NA 138 mEq/L 02/14/2017 Comp Metabolic Eiy636 K 3.5 mEq/L 02/14/2017 Comp Metabolic Cbx636 CL 95 mEq/L 02/14/2017 Comp Metabolic Jac190 CO2 29.0 mEq/L 02/14/2017 Comp Metabolic Bmy944 ANION GAP 18 02/14/2017 Comp Metabolic Pkq844 GLUCOSE 254 mg/dL 02/14/2017 Comp Metabolic Uqk989 Creat 1.0 mg/dL 02/14/2017 Comp Metabolic Pyd263 eGFR 62 ml/min/1.73m2 02/14/2017 Comp Metabolic Jsz880 BUN 14 mg/dL 02/14/2017 Comp Metabolic Igt044 B/C Ratio 14.6 Ratio 02/14/2017 Comp Metabolic Tex883 CALCIUM 8.6 mg/dL 02/14/2017 Comp Metabolic Kzw800 ALK PHOS 155 U/L 02/14/2017 Comp Metabolic Bku048 AST(SGOT) 42 U/L 02/14/2017 Comp Metabolic Ump798 ALT(SGPT) 28 U/L 02/14/2017 Comp Metabolic Zom492 BILI T 0.3 mg/dL 02/14/2017 Comp Metabolic Omb081 ALBUMIN 3.6 g/dL 02/14/2017 Comp Metabolic Bbq786 TPRO 6.2 g/dL 02/14/2017 Comp Metabolic Rwm681 GLOB 2.6 g/dL 02/14/2017 Comp Metabolic Oap548 A/G Ratio 1.4 Ratio 02/14/2017 Comp Metabolic Sey425 Osmo 285 mOsmo 02/14/2017 Vitamin D 25 Oh Zzn6469 VITAMIN D, 25 HYDROXY 8.99 ng/mL Tsh [...] 28.0 pg 01/16/2017 Cbc With Differential Ord2 [place]% 7.3 % 01/16/2017 Cbc With Differential Ord2 [...] 1.42 K/ul 01/16/2017 Cbc With Differential Ord2 [place] ABS# 0.6 K/ul 01/16/2017 Cbc With Differential Ord2 Eos ABS# 0.1 K/ul 01/16/2017 Cbc With Differential Ord2 Baso ABS# 0.0 K/ul 01/16/2017 Sed Rate Ord21 ESR 33 mm/hr 01/16/2017 C-Reactive Protein Qnt Crqnt CRP 3.3 mg/dl 01/16/2017 Free T4 Fub043 FREE T4 0.81 ng/dL 01/16/2017 %Hba1C Yzi260 % HbA1c 81399-4 12.4 % 01/16/2017 %Hba1C Uoc209 Gluc Ave 309 mg/dL 01/16/2017 Comp Metabolic Zdc567 NA 134 mEq/L 01/16/2017 Comp Metabolic Odh623 K 4.0 mEq/L 01/16/2017 Comp Metabolic Cxr805 CL 89 mEq/L 01/16/2017 Comp Metabolic Zhh781 CO2 30.0 mEq/L 01/16/2017 Comp Metabolic Weo603 ANION GAP 19 01/16/2017 Comp Metabolic Kge598 GLUCOSE 496 Result Verified By Repeat Analysis mg/dL 01/16/2017 Comp Metabolic Aeo368 Creat 0.8 mg/dL 01/16/2017 Comp Metabolic Mvz634 eGFR 73 ml/min/1.73m2 01/16/2017 Comp Metabolic Aaz761 BUN 13 mg/dL 01/16/2017 Comp Metabolic Bta107 B/C Ratio 15.7 Ratio 01/16/2017 Comp Metabolic Wow644 CALCIUM 8.8 mg/dL 01/16/2017 Comp Metabolic Hqg133 ALK PHOS 171 U/L 01/16/2017 Comp Metabolic Foz060 AST(SGOT) 54 U/L 01/16/2017 Comp Metabolic Dya874 ALT(SGPT) 32 U/L 01/16/2017 Comp Metabolic Ibz309 BILI T 0.3 mg/dL 01/16/2017 Comp Metabolic Zts813 ALBUMIN 3.9 g/dL 01/16/2017 Comp Metabolic Ksm495 TPRO 6.5 g/dL 01/16/2017 Comp Metabolic Apk669 GLOB 2.6 g/dL 01/16/2017 Comp Metabolic Wgj061 A/G Ratio 1.5 Ratio 01/16/2017 Comp Metabolic Gpb707 Osmo 290 mOsmo 01/16/2017 Comp Metabolic Ype593 NA 135 mEq/L 09/14/2016 Comp Metabolic Bwf778 K 5.2 mEq/L 09/14/2016 Comp Metabolic Iyi107 CL 93 mEq/L 09/14/2016 Comp Metabolic Mao282 CO2 26.0 mEq/L 09/14/2016 Comp Metabolic Bnd593 ANION GAP 21 09/14/2016 Comp Metabolic Nhr127 GLUCOSE 326 mg/dL 09/14/2016 Comp Metabolic Bvo185 Creat 1.0 mg/dL 09/14/2016 Comp Metabolic Ihy924 eGFR 57 ml/min/1.73m2 09/14/2016 Comp Metabolic Ahs330 BUN 16 mg/dL 09/14/2016 Comp Metabolic Pet843 B/C Ratio 15.5 Ratio 09/14/2016 Comp Metabolic Jpp321 CALCIUM 9.2 mg/dL 09/14/2016 Comp Metabolic Oad528 ALK PHOS 160 U/L 09/14/2016 Comp Metabolic Hrd097 AST(SGOT) 49 U/L 09/14/2016 Comp Metabolic Wix947 ALT(SGPT) 32 U/L 09/14/2016 Comp Metabolic Giq954 BILI T 0.4 mg/dL 09/14/2016 Comp Metabolic Tkv323 ALBUMIN 4.0 g/dL 09/14/2016 Comp Metabolic Pnl617 TPRO 7.3 g/dL 09/14/2016 Comp Metabolic Cex428 GLOB 3.3 g/dL 09/14/2016 Comp Metabolic Ufu363 A/G Ratio 1.2 Ratio 09/14/2016 Comp Metabolic Gqk353 Osmo 284 mOsmo 09/14/2016 Cbc With Differential [...] 86.9 fl 09/14/2016 Cbc With Differential Ord2 [place]% 6.2 % 09/14/2016 Cbc With Differential Ord2 [...] 2.09 K/ul 09/14/2016 Cbc With Differential Ord2 [place] ABS# 0.7 K/ul 09/14/2016 Cbc With Differential Ord2 Eos ABS# 0.2 K/ul 09/14/2016 Cbc With Differential Ord2 Baso ABS# 0.3 K/ul 09/14/2016 %Hba1C Lfh753 % HbA1c 03561-8 10.7 % 09/14/2016 %Hba1C Aaz510 Gluc Ave 260 mg/dL 09/14/2016 Manual Differential Ord52 D-Neutr 62 % 09/14/2016 Manual Differential Ord52 D-[place] 1 % 09/14/2016 Manual Differential Ord52 D-Lymph 34 % 09/14/2016 Manual Differential Ord52 D-Eos 2 % 09/14/2016 Manual Differential Ord52 D-Alex 1 % 09/14/2016 Comp Metabolic Zbh517 NA 134 mEq/L 08/10/2016 Comp Metabolic Fcg200 K 5.0 mEq/L 08/10/2016 Comp Metabolic Jbd134 CL 91 mEq/L 08/10/2016 Comp Metabolic Qex970 CO2 29.0 mEq/L 08/10/2016 Comp Metabolic Nyh312 ANION GAP 19 08/10/2016 Comp Metabolic Giw991 GLUCOSE 291 mg/dL 08/10/2016 Comp Metabolic Mgi544 Creat 0.9 mg/dL 08/10/2016 Comp Metabolic Lft993 eGFR 68 ml/min/1.73m2 08/10/2016 Comp Metabolic Dtg685 BUN 20 mg/dL 08/10/2016 Comp Metabolic Dbp891 B/C Ratio 22.7 Ratio 08/10/2016 Comp Metabolic Ezb921 CALCIUM 9.7 mg/dL 08/10/2016 Comp Metabolic Glf948 ALK PHOS 144 U/L 08/10/2016 Comp Metabolic Epg630 AST(SGOT) 62 U/L 08/10/2016 Comp Metabolic Rjt236 ALT(SGPT) 37 U/L 08/10/2016 Comp Metabolic Bnv562 BILI T 0.3 mg/dL 08/10/2016 Comp Metabolic Ayl794 ALBUMIN 4.3 g/dL 08/10/2016 Comp Metabolic Hmk419 TPRO 7.3 g/dL 08/10/2016 Comp Metabolic Lcj528 GLOB 3.0 g/dL 08/10/2016 Comp Metabolic Zqh102 A/G Ratio 1.5 Ratio 08/10/2016 Comp Metabolic Dav743 Osmo 282 mOsmo 08/10/2016 Free T4 Sip672 FREE T4 0.89 ng/dL 08/09/2016 Tsh Ord6 [...] 27.1 pg 08/09/2016 Cbc With Differential Ord2 [place]% 5.4 % 08/09/2016 Cbc With Differential Ord2 [...] 2.46 K/ul 08/09/2016 Cbc With Differential Ord2 [place] ABS# 0.8 K/ul 08/09/2016 Cbc With Differential [...] 26.3 % 04/20/2016 Cbc With Differential Ord2 [place]% 6.3 % 04/20/2016 Cbc With Differential Ord2 [...] 2.63 K/ul 04/20/2016 Cbc With Differential Ord2 [place] ABS# 0.6 K/ul 04/20/2016 Cbc With Differential Ord2 Eos ABS# 0.2 K/ul 04/20/2016 Cbc With Differential Ord2 Baso ABS# 0.0 K/ul 04/20/2016 Comp Metabolic Kdq763 NA 133 mEq/L 04/11/2016 Comp Metabolic Xjs497 K 4.1 mEq/L 04/11/2016 Comp Metabolic Leq280 CL 92 mEq/L 04/11/2016 Comp Metabolic Owa817 CO2 30.0 mEq/L 04/11/2016 Comp Metabolic Hqa372 ANION GAP 15 04/11/2016 Comp Metabolic Szs012 GLUCOSE 414 mg/dL 04/11/2016 Comp Metabolic Avl000 Creat 0.9 mg/dL 04/11/2016 Comp Metabolic Iux233 eGFR 65 ml/min/1.73m2 04/11/2016 Comp Metabolic Ake556 BUN 22 mg/dL 04/11/2016 Comp Metabolic Rif540 B/C Ratio 23.9 Ratio 04/11/2016 Comp Metabolic Uxw847 CALCIUM 9.2 mg/dL 04/11/2016 Comp Metabolic Mcq357 ALK PHOS 145 U/L 04/11/2016 Comp Metabolic Ynv745 AST(SGOT) 22 U/L 04/11/2016 Comp Metabolic Jmo087 ALT(SGPT) 21 U/L 04/11/2016 Comp Metabolic Soe930 BILI T 0.3 mg/dL 04/11/2016 Comp Metabolic Flj059 ALBUMIN 3.9 g/dL 04/11/2016 Comp Metabolic Lyi846 TPRO 6.8 g/dL 04/11/2016 Comp Metabolic Chb447 GLOB 3.0 g/dL 04/11/2016 Comp Metabolic Req159 A/G Ratio 1.3 Ratio 04/11/2016 Comp Metabolic Jsv734 Osmo 287 mOsmo 04/11/2016 Cbc With Differential [...] 27.6 pg 04/11/2016 Cbc With Differential Ord2 [place]% 6.9 % 04/11/2016 Cbc With Differential Ord2 [...] 2.09 K/ul 04/11/2016 Cbc With Differential Ord2 [place] ABS# 0.7 K/ul 04/11/2016 Cbc With Differential Ord2 Eos ABS# 0.2 K/ul 04/11/2016 Cbc With Differential Ord2 Baso ABS# 0.0 K/ul 04/11/2016 Comp Metabolic Wpp043 NA 136 mEq/L 02/26/2016 Comp Metabolic Iys347 K 3.9 mEq/L 02/26/2016 Comp Metabolic Yyc534 CL 95 mEq/L 02/26/2016 Comp Metabolic Jky232 CO2 29.0 mEq/L 02/26/2016 Comp Metabolic Yum165 ANION GAP 16 02/26/2016 Comp Metabolic Ugu662 GLUCOSE 277 mg/dL 02/26/2016 Comp Metabolic Cjs660 Creat 0.7 mg/dL 02/26/2016 Comp Metabolic Uqf282 eGFR 88 ml/min/1.73m2 02/26/2016 Comp Metabolic Mxa295 BUN 11 mg/dL 02/26/2016 Comp Metabolic Mcw126 B/C Ratio 15.5 Ratio 02/26/2016 Comp Metabolic Ghn642 CALCIUM 8.8 mg/dL 02/26/2016 Comp Metabolic Jvu496 ALK PHOS 119 U/L 02/26/2016 Comp Metabolic Vrw649 AST(SGOT) 25 U/L 02/26/2016 Comp Metabolic Ytp002 ALT(SGPT) 20 U/L 02/26/2016 Comp Metabolic Vwj666 BILI T 0.3 mg/dL 02/26/2016 Comp Metabolic Gqh510 ALBUMIN 3.8 g/dL 02/26/2016 Comp Metabolic Ndr442 TPRO 6.6 g/dL 02/26/2016 Comp Metabolic Mzw576 GLOB 2.8 g/dL 02/26/2016 Comp Metabolic Abw528 A/G Ratio 1.3 Ratio 02/26/2016 Comp Metabolic Diz874 Osmo 281 mOsmo 02/26/2016 Cbc With Differential [...] 29.6 pg 02/26/2016 Cbc With Differential Ord2 [place]% 6.4 % 02/26/2016 Cbc With Differential Ord2 [...] 2.78 K/ul 02/26/2016 Cbc With Differential Ord2 [place] ABS# 0.8 K/ul 02/26/2016 Cbc With Differential Ord2 Eos ABS# 0.2 K/ul 02/26/2016 Cbc With Differential Ord2 Baso ABS# 0.1 K/ul 02/26/2016 %Hba1C Dri754 % HbA1c 84080-7 9.6 % 02/26/2016 %Hba1C Urf962 Gluc Ave 229 mg/dL 02/26/2016 Comp Metabolic Riz636 NA 138 mEq/L 11/10/2015 Comp Metabolic Zld895 K 4.5 mEq/L 11/10/2015 Comp Metabolic Oqi602 CL 99 mEq/L 11/10/2015 Comp Metabolic Ugu160 CO2 34.0 mEq/L 11/10/2015 Comp Metabolic Kwb257 ANION GAP 10 11/10/2015 Comp Metabolic Dlr046 GLUCOSE 167 mg/dL 11/10/2015 Comp Metabolic Kst429 Creat 0.8 mg/dL 11/10/2015 Comp Metabolic Iqf062 eGFR 78 ml/min/1.73m2 11/10/2015 Comp Metabolic Evw275 BUN 22 mg/dL 11/10/2015 Comp Metabolic Ceg493 B/C Ratio 27.8 Ratio 11/10/2015 Comp Metabolic Nrr097 CALCIUM 8.5 mg/dL 11/10/2015 Comp Metabolic Ohd587 ALK PHOS 130 U/L 11/10/2015 Comp Metabolic Rsv647 AST(SGOT) 56 U/L 11/10/2015 Comp Metabolic Kab984 ALT(SGPT) 51 U/L 11/10/2015 Comp Metabolic Olv422 BILI T 0.5 mg/dL 11/10/2015 Comp Metabolic Xby933 ALBUMIN 3.5 g/dL 11/10/2015 Comp Metabolic Kpw044 TPRO 5.8 g/dL 11/10/2015 Comp Metabolic Jxi191 GLOB 2.3 g/dL 11/10/2015 Comp Metabolic Qkt645 A/G Ratio 1.5 Ratio 11/10/2015 Comp Metabolic Ako835 Osmo 283 mOsmo 11/10/2015 Cbc With Differential [...] 93.1 fl 11/10/2015 Cbc With Differential Ord2 [place]% 7.7 % 11/10/2015 Cbc With Differential Ord2 [...] 1.92 K/ul 11/10/2015 Cbc With Differential Ord2 [place] ABS# 0.9 K/ul 11/10/2015 Cbc With Differential [...] 28.6 pg 08/11/2015 Cbc With Differential Ord2 [place]% 8.1 % 08/11/2015 Cbc With Differential Ord2 [...] 2.93 K/ul 08/11/2015 Cbc With Differential Ord2 [place] ABS# 0.9 K/ul 08/11/2015 Cbc With Differential Ord2 Eos ABS# 0.1 K/ul 08/11/2015 Cbc With Differential Ord2 Baso ABS# 0.0 K/ul 08/11/2015 Cbc With Differential Ord2 New Analyzer Notice Please note new ref ranges starting 06-03-2015 due to implemntation of new five part differential hematolgy analyzer. 08/11/2015 Comp Metabolic Wfm635 NA 142 mEq/L 08/11/2015 Comp Metabolic Yud721 K 3.6 mEq/L 08/11/2015 Comp Metabolic Gja315 CL 98 mEq/L 08/11/2015 Comp Metabolic Pmj313 CO2 33.0 mEq/L 08/11/2015 Comp Metabolic Zbc730 ANION GAP 15 08/11/2015 Comp Metabolic Hbt602 GLUCOSE 100 mg/dL 08/11/2015 Comp Metabolic Fzj466 Creat 0.9 mg/dL 08/11/2015 Comp Metabolic Jzm043 eGFR 65 ml/min/1.73m2 08/11/2015 Comp Metabolic Spu013 BUN 15 mg/dL 08/11/2015 Comp Metabolic Vtb567 B/C Ratio 16.3 Ratio 08/11/2015 Comp Metabolic Jfv633 CALCIUM 8.8 mg/dL 08/11/2015 Comp Metabolic Qiu149 ALK PHOS 171 U/L 08/11/2015 Comp Metabolic Sva216 AST(SGOT) 76 U/L 08/11/2015 Comp Metabolic Qum655 ALT(SGPT) 64 U/L 08/11/2015 Comp Metabolic Doc333 BILI T 0.4 mg/dL 08/11/2015 Comp Metabolic Lbk629 ALBUMIN 4.2 g/dL 08/11/2015 Comp Metabolic Drg096 TPRO 6.7 g/dL 08/11/2015 Comp Metabolic Oxi678 GLOB 2.6 g/dL 08/11/2015 Comp Metabolic Qyi357 A/G Ratio 1.6 Ratio 08/11/2015 Comp Metabolic Iuh662 Osmo 284 mOsmo 08/11/2015 %Hba1C Gzs367 % HbA1c 78198-9 6.7 % 08/11/2015 %Hba1C Mxm469 Gluc Ave 146 mg/dL 08/11/2015 Free T4 Tva195 FREE T4 1.07 ng/dL 08/11/2015 Culture Urine [id number] URINE CULTURE SEE NOTES 07/23/2015 Culture Urine [id number] Continued Results 07/23/2015 Urine Culture Ucult Complete Growth of aerobe sent to ref lab 07/21/2015 Free T4 Ovc435 FREE T4 0.76 ng/dL 04/15/2015 Tsh Ord6 hTSH II 1.99 uIU/mL 04/15/2015 %Hba1C Yxx326 % HbA1c 54000-6 6.7 % 04/14/2015 %Hba1C Jdt924 Gluc Ave 146 mg/dL 04/14/2015 Comp Metabolic Zol284 NA 140 mEq/L 04/14/2015 Comp Metabolic Ajv129 K 4.4 mEq/L 04/14/2015 Comp Metabolic Rjg447 CL 99 mEq/L 04/14/2015 Comp Metabolic Oxy857 CO2 29.0 mEq/L 04/14/2015 Comp Metabolic Rqw379 ANION GAP 16 04/14/2015 Comp Metabolic Oeu751 GLUCOSE 100 mg/dL 04/14/2015 Comp Metabolic Gmu457 Creat 0.7 mg/dL 04/14/2015 Comp Metabolic Jvp371 eGFR 91 ml/min/1.73m2 04/14/2015 Comp Metabolic Jtw638 BUN 13 mg/dL 04/14/2015 Comp Metabolic Tcb087 B/C Ratio 18.8 Ratio 04/14/2015 Comp Metabolic Sbs533 CALCIUM 9.1 mg/dL 04/14/2015 Comp Metabolic Qhk965 ALK PHOS 138 U/L 04/14/2015 Comp Metabolic Aqm073 AST(SGOT) 22 U/L 04/14/2015 Comp Metabolic Rzu624 ALT(SGPT) 22 U/L 04/14/2015 Comp Metabolic Zbn182 BILI T 0.3 mg/dL 04/14/2015 Comp Metabolic Zao825 ALBUMIN 4.0 g/dL 04/14/2015 Comp Metabolic Ojc422 TPRO 6.5 g/dL 04/14/2015 Comp Metabolic Anp305 GLOB 2.5 g/dL 04/14/2015 Comp Metabolic Hpd447 A/G Ratio 1.6 Ratio 04/14/2015 Comp Metabolic Fhh652 Osmo 280 mOsmo 04/14/2015 Cbc With Differential [...] Ord2 RDW 16.5 % 04/14/2015 CHEM 14 5740368 AST 15 U/L 09/11/2013 CHEM 14 5873121 ALT 25 IU/L 09/11/2013 CHEM 14 8158102 BUN 29 MG/DL 09/11/2013 CHEM 14 6846261 ALBUMIN 3.8 GM/DL 09/11/2013 CHEM 14 7984447 CHLORIDE 99 MMOL/L 09/11/2013 CHEM 14 5972911 BILI TOT 0.2 MG/DL 09/11/2013 CHEM 14 0991585 ALK PHOS 118 U/L 09/11/2013 CHEM 14 1670198 SODIUM 136 MMOL/L 09/11/2013 CHEM 14 4567220 CREATININE 1.26 MG/DL 09/11/2013 CHEM 14 9017715 CALCIUM 9.0 MG/DL 09/11/2013 CHEM 14 3728882 POTASSIUM 5.0 MMOL/L 09/11/2013 CHEM 14 0713928 PROT TOT 6.2 GM/DL 09/11/2013 CHEM 14 7868945 GLUCOSE 254 MG/DL 09/11/2013 CHEM 14 5052987 BICARB 29 MMOL/L 09/11/2013 CHEM 14 8492769 ANION GAP 8 MEQ/L 09/11/2013 GFR CALC 3158692 GFR AA 52.0L ML/MIN 09/11/2013 GFR CALC 2548702 GFR NON-AA 43.0L ML/MIN 09/11/2013 FREE T4 1861007 FREE T4 1.35 NG/DL 08/02/2013 CBC 3956020 WBC 7.5 10e9/L 08/01/2013 CBC 6311561 RBC 3.88 10e12/L 08/01/2013 CBC 4592405 HGB 12.1 g/dL 08/01/2013 CBC 5108587 HCT DET 37.6 % 08/01/2013 CBC 7013194 MCV 96.9 fL 08/01/2013 CBC 2681763 MCH 31.2 pg 08/01/2013 CBC 4743715 MCHC 32.2 g/dL 08/01/2013 CBC 4496149 PLT 289 10e9/L 08/01/2013 CBC 7699661 MPV 9.6 fL 08/01/2013 CBC 3290541 JOSEFINA % 56.0 % 08/01/2013 CBC 5690571 LY % 31.6 % 08/01/2013 CBC 1762706 MON % 10.0 % 08/01/2013 CBC 1022239 EOS % 1.7 % 08/01/2013 CBC 5785171 BASO % 0.7 % 08/01/2013 CBC 7602353 RDW 15.5 % 08/01/2013 CBC 1454267 ABS JOSEFINA 4.20 10e9/L 08/01/2013 CBC 8273017 ABS LYMPH 2.37 10e9/L 08/01/2013 CBC 4056443 ABS MONO 0.75 10e9/L 08/01/2013 CBC 8169382 ABS EOS 0.13 10e9/L 08/01/2013 CBC 0234586 ABS BASO 0.05 10e9/L 08/01/2013 CBC 0609966 RDW-SD 53.5 fL 08/01/2013 TSH 2356304 TSH 6.497 uIU/ML 08/01/2013 CHEM 14 1909681 AST 53 U/L 08/01/2013 CHEM 14 6749846 ALT 36 IU/L 08/01/2013 CHEM 14 1548193 BUN 16 MG/DL 08/01/2013 CHEM 14 8107242 ALBUMIN 4.2 GM/DL 08/01/2013 CHEM 14 8954760 CHLORIDE 103 MMOL/L 08/01/2013 CHEM 14 5710470 BILI TOT 0.4 MG/DL 08/01/2013 CHEM 14 7471857 ALK PHOS 113 U/L 08/01/2013 CHEM 14 9147071 SODIUM 139 MMOL/L 08/01/2013 CHEM 14 4567171 CREATININE 0.83 MG/DL 08/01/2013 CHEM 14 8315892 CALCIUM 9.5 MG/DL 08/01/2013 CHEM 14 8822434 POTASSIUM 4.2 MMOL/L 08/01/2013 CHEM 14 9718844 PROT TOT 6.4 GM/DL 08/01/2013 CHEM 14 5682724 GLUCOSE 135 MG/DL 08/01/2013 CHEM 14 4600648 BICARB 26 MMOL/L 08/01/2013 CHEM 14 9032742 ANION GAP 10 MEQ/L 08/01/2013 A1C HPLC 9286692 A1C HPLC 46756-3 8.1 % 08/01/2013 GFR CALC 9257867 GFR AA >60 ML/MIN 08/01/2013 GFR CALC 6856122 GFR NON-AA >60 ML/MIN 08/01/2013 CBC 9853739 WBC 10.4 10e9/L 03/21/2013 CBC 1338462 RBC 4.27 10e12/L 03/21/2013 CBC 2074379 HGB 13.1 g/dL 03/21/2013 CBC 6495372 HCT DET 41.2 % 03/21/2013 CBC 0502626 MCV 96.5 fL 03/21/2013 CBC 7729866 MCH 30.7 pg 03/21/2013 CBC 4919085 MCHC 31.8 g/dL 03/21/2013 CBC 2442200 PLT 398 10e9/L 03/21/2013 CBC 4197413 MPV 10.9 fL 03/21/2013 CBC 7449502 JOSEFINA % 65.4 % 03/21/2013 CBC 2007245 LY % 25.6 % 03/21/2013 CBC 4241774 MON % 6.7 % 03/21/2013 CBC 1878439 EOS % 1.9 % 03/21/2013 CBC 7148580 BASO % 0.4 % 03/21/2013 CBC 7159561 RDW 14.2 % 03/21/2013 CBC 8595891 ABS JOSEFINA 6.80 10e9/L 03/21/2013 CBC 3541109 ABS LYMPH 2.66 10e9/L 03/21/2013 CBC 7708857 ABS MONO 0.70 10e9/L 03/21/2013 CBC 2560717 ABS EOS 0.20 10e9/L 03/21/2013 CBC 5397282 ABS BASO 0.04 10e9/L 03/21/2013 CBC 6117577 RDW-SD 48.7 fL 03/21/2013 GFR CALC 0840834 GFR AA 57.0L ML/MIN 03/21/2013 GFR CALC 5855225 GFR NON-AA 47.0L ML/MIN 03/21/2013 CHEM 14 9624499 AST 22 U/L 03/21/2013 CHEM 14 1468137 ALT 22 IU/L 03/21/2013 CHEM 14 4313795 BUN 29 MG/DL 03/21/2013 CHEM 14 4659303 ALBUMIN 4.1 GM/DL 03/21/2013 CHEM 14 0125835 CHLORIDE 99 MMOL/L 03/21/2013 CHEM 14 7222381 BILI TOT 0.3 MG/DL 03/21/2013 CHEM 14 2275700 ALK PHOS 123 U/L 03/21/2013 CHEM 14 8379249 SODIUM 137 MMOL/L 03/21/2013 CHEM 14 7655138 CREATININE 1.16 MG/DL 03/21/2013 CHEM 14 3873403 CALCIUM 9.1 MG/DL 03/21/2013 CHEM 14 9184949 POTASSIUM 4.1 MMOL/L 03/21/2013 CHEM 14 3576312 PROT TOT 6.7 GM/DL 03/21/2013 CHEM 14 4241980 GLUCOSE 209 MG/DL 03/21/2013 CHEM 14 5965232 BICARB 26 MMOL/L 03/21/2013 CHEM 14 4730705 ANION GAP 12 MEQ/L 03/21/2013 A1C HPLC 0432352 A1C HPLC 10678-7 6.6 % 03/21/2013 GFR CALC 1492139 GFR AA >60 ML/MIN 01/17/2013 GFR CALC 3664812 GFR NON-AA 51.0L ML/MIN 01/17/2013 CHEM 14 3349459 AST 18 U/L 01/17/2013 CHEM 14 0985983 ALT 32 IU/L 01/17/2013 CHEM 14 4880785 BUN 22 MG/DL 01/17/2013 CHEM 14 2422409 ALBUMIN 4.1 GM/DL 01/17/2013 CHEM 14 6933716 CHLORIDE 99 MMOL/L 01/17/2013 CHEM 14 1051327 BILI TOT 0.3 MG/DL 01/17/2013 CHEM 14 8402022 ALK PHOS 110 U/L 01/17/2013 CHEM 14 4668204 SODIUM 138 MMOL/L 01/17/2013 CHEM 14 2107335 CREATININE 1.09 MG/DL 01/17/2013 CHEM 14 1474135 CALCIUM 8.8 MG/DL 01/17/2013 CHEM 14 6251679 POTASSIUM 3.5 MMOL/L 01/17/2013 CHEM 14 0322622 PROT TOT 6.1 GM/DL 01/17/2013 CHEM 14 8942954 GLUCOSE 163 MG/DL 01/17/2013 CHEM 14 3314442 BICARB 29 MMOL/L 01/17/2013 CHEM 14 3270532 ANION GAP 10 MEQ/L 01/17/2013 CBC 5516591 WBC 8.0 10e9/L 01/17/2013 CBC 1485526 RBC 3.85 10e12/L 01/17/2013 CBC 3512676 HGB 12.6 g/dL 01/17/2013 CBC 6563210 HCT DET 38.0 % 01/17/2013 CBC 1641549 MCV 98.7 fL 01/17/2013 CBC 6945576 MCH 32.7 pg 01/17/2013 CBC 7653017 MCHC 33.2 g/dL 01/17/2013 CBC 9428265 PLT 325 10e9/L 01/17/2013 CBC 4709576 MPV 10.4 fL 01/17/2013 CBC 5288520 JOSEFINA % 64.6 % 01/17/2013 CBC 8115442 LY % 27.0 % 01/17/2013 CBC 1333408 MON % 6.8 % 01/17/2013 CBC 7351040 EOS % 1.4 % 01/17/2013 CBC 1894072 BASO % 0.2 % 01/17/2013 CBC 1543635 RDW 15.5 % 01/17/2013 CBC 2253556 ABS JOSEFINA 5.17 10e9/L 01/17/2013 CBC 8171635 ABS LYMPH 2.16 10e9/L 01/17/2013 CBC 6477450 ABS MONO 0.54 10e9/L 01/17/2013 CBC 6557870 ABS EOS 0.11 10e9/L 01/17/2013 CBC 2043627 ABS BASO 0.02 10e9/L 01/17/2013 CBC 6730874 RDW-SD 54.3 fL 01/17/2013 TSH 7590220 TSH 3.683 uIU/ML 12/31/2012 FREE T4 6753288 FREE T4 1.34 NG/DL 12/31/2012 A1C HPLC 9858518 A1C HPLC 68606-0 6.6 % 12/21/2012 CHEM 14 0587146 AST 16 U/L 12/20/2012 CHEM 14 0368309 ALT 36 IU/L 12/20/2012 CHEM 14 5516236 BUN 26 MG/DL 12/20/2012 CHEM 14 5157194 ALBUMIN 4.2 GM/DL 12/20/2012 CHEM 14 9279503 CHLORIDE 103 MMOL/L 12/20/2012 CHEM 14 6895167 BILI TOT 0.4 MG/DL 12/20/2012 CHEM 14 5698276 ALK PHOS 107 U/L 12/20/2012 CHEM 14 1720024 SODIUM 141 MMOL/L 12/20/2012 CHEM 14 6033955 CREATININE 0.73 MG/DL 12/20/2012 CHEM 14 8058344 CALCIUM 9.2 MG/DL 12/20/2012 CHEM 14 2561750 POTASSIUM 4.3 MMOL/L 12/20/2012 CHEM 14 1867306 PROT TOT 6.2 GM/DL 12/20/2012 CHEM 14 3206846 GLUCOSE 135 MG/DL 12/20/2012 CHEM 14 6350163 BICARB 32 MMOL/L 12/20/2012 CHEM 14 4123504 ANION GAP 6 MEQ/L 12/20/2012 GFR CALC 5961665 GFR AA >60 ML/MIN 12/20/2012 GFR CALC 8156637 GFR NON-AA >60 ML/MIN 12/20/2012 CBC 3231525 WBC 8.4 10e9/L 12/20/2012 CBC 1638340 RBC 4.30 10e12/L 12/20/2012 CBC 4534091 HGB 13.9 g/dL 12/20/2012 CBC 2674273 HCT DET 41.8 % 12/20/2012 CBC 8775159 MCV 97.2 fL 12/20/2012 CBC 3273942 MCH 32.3 pg 12/20/2012 CBC 6340483 MCHC 33.3 g/dL 12/20/2012 CBC 3341868 PLT 358 10e9/L 12/20/2012 CBC 6844941 MPV 10.2 fL 12/20/2012 CBC 1791220 JOSEFINA % 63.3 % 12/20/2012 CBC 8123010 LY % 28.9 % 12/20/2012 CBC 8165950 MON % 6.3 % 12/20/2012 CBC 9866815 EOS % 1.1 % 12/20/2012 CBC 3796621 BASO % 0.4 % 12/20/2012 CBC 9777886 RDW 15.3 % 12/20/2012 CBC 6578084 ABS JOSEFINA 5.32 10e9/L 12/20/2012 CBC 4674410 ABS LYMPH 2.43 10e9/L 12/20/2012 CBC 0587167 ABS MONO 0.53 10e9/L 12/20/2012 CBC 5318085 ABS EOS 0.09 10e9/L 12/20/2012 CBC 6984460 ABS BASO 0.03 10e9/L 12/20/2012 CBC 1701980 RDW-SD 51.9 fL 12/20/2012 GFR CALC 5991454 GFR AA >60 ML/MIN 02/01/2012 GFR CALC 6207553 GFR NON-AA >60 ML/MIN 02/01/2012 CBC 6119382 WBC 10.8 10e9/L 02/01/2012 CBC 7950966 RBC 3.86 10e12/L 02/01/2012 CBC 5042986 HGB 11.8 g/dL 02/01/2012 CBC 8508006 HCT DET 36.3 % 02/01/2012 CBC 4460477 MCV 94.0 fL 02/01/2012 CBC 0092847 MCH 30.6 pg 02/01/2012 CBC 5213218 MCHC 32.5 g/dL 02/01/2012 CBC 0624569 PLT 321 10e9/L 02/01/2012 CBC 0054238 MPV 10.3 fL 02/01/2012 CBC 8832138 JOSEFINA % 75.9 % 02/01/2012 CBC 6012383 LY % 16.1 % 02/01/2012 CBC 6787715 MON % 6.8 % 02/01/2012 CBC 1888431 EOS % 1.0 % 02/01/2012 CBC 1205649 BASO % 0.2 % 02/01/2012 CBC 5030379 RDW 14.2 % 02/01/2012 CBC 1679394 ABS JOSEFINA 8.20 10e9/L 02/01/2012 CBC 9376442 ABS LYMPH 1.74 10e9/L 02/01/2012 CBC 5002138 ABS MONO 0.73 10e9/L 02/01/2012 CBC 7308698 ABS EOS 0.11 10e9/L 02/01/2012 CBC 0662504 ABS BASO 0.02 10e9/L 02/01/2012 CBC 9677591 RDW-SD 47.2 fL 02/01/2012 BRAIN PEP 9345170 BRAIN PEP FOOTNOTE pg/mL 02/01/2012 CHEM 14 1519846 AST 26 U/L 02/01/2012 CHEM 14 5640659 ALT 36 IU/L 02/01/2012 CHEM 14 3222800 BUN 29 MG/DL 02/01/2012 CHEM 14 3988906 ALBUMIN 3.7 GM/DL 02/01/2012 CHEM 14 7038501 CHLORIDE 105 MMOL/L 02/01/2012 CHEM 14 9697528 BILI TOT 0.2 MG/DL 02/01/2012 CHEM 14 4719703 ALK PHOS 89 U/L 02/01/2012 CHEM 14 4075155 SODIUM 141 MMOL/L 02/01/2012 CHEM 14 6457744 CREATININE 0.76 MG/DL 02/01/2012 CHEM 14 3784072 CALCIUM 9.0 MG/DL 02/01/2012 CHEM 14 5257838 POTASSIUM 4.8 MMOL/L 02/01/2012 CHEM 14 6520488 PROT TOT 5.5 GM/DL 02/01/2012 CHEM 14 4212195 GLUCOSE 83 MG/DL 02/01/2012 CHEM 14 7120668 BICARB 31 MMOL/L 02/01/2012 CHEM 14 6837979 ANION GAP 5 MEQ/L 02/01/2012 GFR CALC 0963980 GFR AA >60 ML/MIN 11/30/2011 GFR CALC 3234679 GFR NON-AA >60 ML/MIN 11/30/2011 CHEM 14 3926112 AST 14 U/L 11/30/2011 CHEM 14 2087192 ALT 17 IU/L 11/30/2011 CHEM 14 8284989 BUN 12 MG/DL 11/30/2011 CHEM 14 3104568 ALBUMIN 4.3 GM/DL 11/30/2011 CHEM 14 1279131 CHLORIDE 104 MMOL/L 11/30/2011 CHEM 14 3322824 BILI TOT 0.3 MG/DL 11/30/2011 CHEM 14 0776234 ALK PHOS 83 U/L 11/30/2011 CHEM 14 7786398 SODIUM 143 MMOL/L 11/30/2011 CHEM 14 1351210 CREATININE 0.71 MG/DL 11/30/2011 CHEM 14 9543316 CALCIUM 9.7 MG/DL 11/30/2011 CHEM 14 2321140 POTASSIUM 4.4 MMOL/L 11/30/2011 CHEM 14 1603832 PROT TOT 6.3 GM/DL 11/30/2011 CHEM 14 0396383 GLUCOSE 107 MG/DL 11/30/2011 CHEM 14 3251304 BICARB 27 MMOL/L 11/30/2011 CHEM 14 4105719 ANION GAP 12 MEQ/L 11/30/2011 CBC 7577931 WBC 8.7 10e9/L 11/30/2011 CBC 4070434 RBC 4.40 10e12/L 11/30/2011 CBC 0700191 HGB 13.6 g/dL 11/30/2011 CBC 4541789 HCT DET 41.0 % 11/30/2011 CBC 1811672 MCV 93.2 fL 11/30/2011 CBC 2986934 MCH 30.9 pg 11/30/2011 CBC 8293617 MCHC 33.2 g/dL 11/30/2011 CBC 0892329 PLT 328 10e9/L 11/30/2011 CBC 3897284 MPV 10.7 fL 11/30/2011 CBC 6069758 JOSEFINA % 68.4 % 11/30/2011 CBC 4915092 LY % 22.4 % 11/30/2011 CBC 6931253 MON % 7.9 % 11/30/2011 CBC 5776358 EOS % 1.1 % 11/30/2011 CBC 2713096 BASO % 0.2 % 11/30/2011 CBC 0828326 RDW 13.5 % 11/30/2011 CBC 7197566 ABS JOSEFINA 5.95 10e9/L 11/30/2011 CBC 0131429 ABS LYMPH 1.95 10e9/L 11/30/2011 CBC 9408327 ABS MONO 0.69 10e9/L 11/30/2011 CBC 4099234 ABS EOS 0.10 10e9/L 11/30/2011 CBC 0965026 ABS BASO 0.02 10e9/L 11/30/2011 CBC 0635670 RDW-SD 45.0 fL 11/30/2011 URINALYSIS NONAUTO W/O SCOPE 51473 Specific [place] 1.030 DateTime(Free Text in Aprima) URINALYSIS NONAUTO W/O SCOPE 17359 PH 5 DateTime(Free Text in Aprima) URINALYSIS NONAUTO W/O SCOPE 93121 GLUCOSE neg DateTime( Free Text in Aprima) URINALYSIS NONAUTO W/O SCOPE 24623 Protein neg DateTime( Free Text in Aprima) URINALYSIS NONAUTO W/O SCOPE 99328 Blood neg DateTime(Free Text in Aprima) URINALYSIS NONAUTO W/O SCOPE 34853 Bilirubin neg DateTime(Free Text in Aprima) URINALYSIS NONAUTO W/O SCOPE 87544 Ketones neg DateTime( Free Text in Aprima) URINALYSIS NONAUTO W/O SCOPE 17222 Urobilinogen neg DateTime(Free Text in Aprima) URINALYSIS NONAUTO W/O SCOPE 86558 Nitrite neg DateTime( Free Text in Aprima) URINALYSIS NONAUTO W/O SCOPE 08840 Leukocytes neg DateTime(Free Text in Aprima) UA 01051 Specific [place] 1.010 DateTime(Free Text in Aprima ) UA 24629 PH 5 DateTime(Free Text in Aprima) UA 35122 GLUCOSE N DateTime(Free Text in Aprima) UA 49079 Protein N DateTime(Free Text in Aprima) UA 73178 Blood TRACE DateTime(Free Text in Aprima) UA 31845 Bilirubin N DateTime(Free Text in Aprima) UA 32844 Ketones N DateTime(Free Text in Aprima) UA 99925 Urobilinogen N DateTime(Free Text in Aprima) UA 66879 Nitrite N DateTime(Free Text in Aprima) UA 60797 Leukocytes N DateTime(Free Text in Aprima) URINALYSIS NONAUTO W/O SCOPE 83797 Specific [place] 1.010 DateTime(Free Text in Aprima) URINALYSIS NONAUTO W/O SCOPE 54167 PH 7.5 DateTime(Free Text in Aprima) URINALYSIS NONAUTO W/O SCOPE 08517 GLUCOSE DateTime( Free Text in Aprima) URINALYSIS NONAUTO W/O SCOPE 43088 Protein trace DateTime(Free Text in Aprima) URINALYSIS NONAUTO W/O SCOPE 43624 Blood DateTime(Free Text in Aprima) URINALYSIS NONAUTO W/O SCOPE 43633 Bilirubin DateTime( Free Text in Aprima) URINALYSIS NONAUTO W/O SCOPE 08132 Ketones DateTime( Free Text in Aprima) URINALYSIS NONAUTO W/O SCOPE 23734 Urobilinogen DateTime (Free Text in Aprima) URINALYSIS NONAUTO W/O SCOPE 13012 Nitrite DateTime( Free Text in Aprima) URINALYSIS NONAUTO W/O SCOPE 56687 Leukocytes DateTime( Free Text in Aprima) URINALYSIS NONAUTO W/O SCOPE 26589 Specific [place] 1.010 DateTime(Free Text in Aprima) URINALYSIS NONAUTO W/O SCOPE 71862 PH 6 DateTime(Free Text in Aprima) URINALYSIS NONAUTO W/O SCOPE 62623 GLUCOSE DateTime( Free Text in Aprima) URINALYSIS NONAUTO W/O SCOPE 24931 Protein DateTime( Free Text in Aprima) URINALYSIS NONAUTO W/O SCOPE 61883 Blood DateTime(Free Text in Aprima) URINALYSIS NONAUTO W/O SCOPE 00312 Bilirubin DateTime( Free Text in Aprima) URINALYSIS NONAUTO W/O SCOPE 29494 Ketones DateTime( Free Text in Aprima) URINALYSIS NONAUTO W/O SCOPE 56570 Urobilinogen DateTime (Free Text in Aprima) URINALYSIS NONAUTO W/O SCOPE 33705 Nitrite DateTime( Free Text in Aprima) URINALYSIS NONAUTO W/O SCOPE 04038 Leukocytes DateTime( Free Text in Aprima) UA 40311 Specific Patterson 1.020 DateTime(Free Text in Aprima ) UA 93342 PH 6 DateTime(Free Text in Aprima) UA 59073 GLUCOSE neg DateTime(Free Text in Aprima) UA 61885 Protein neg DateTime(Free Text in Aprima) UA 91498 Blood neg DateTime(Free Text in Aprima) UA 93911 Bilirubin neg DateTime(Free Text in Aprima) UA 02962 Ketones neg DateTime(Free Text in Aprima) UA 30332 Urobilinogen neg DateTime(Free Text in Aprima) UA 06415 Nitrite neg DateTime(Free Text in Aprima) UA 09929 Leukocytes neg DateTime(Free Text in Aprima) BMI 84466-6 39.7 DateTime(Free Text in Augima) Blood Pressure 1 8480-6 DateTime(Free Text in Aprima) Weight (kg) DateTime(Free Text in Aprima) Height (cm) DateTime(Free Text in Aprima) Heart Rate 1 DateTime(Free Text in Aprima) SpO2 DateTime(Free Text in Augima) Review of Systems System Result Effective Dates [...] accomodation 01/30/2017 None Full Exam - General 1995 Ears/Nose/Throat [...] lips 07/26/2016 None Full Exam - General 1995 [...] clear 05/24/2016 None Full Exam - General 1995 Ears/Nose/Throat [...] 1995 Psychiatric orientation/consciousness Level of consciousness: alert 05/07/2013 [...] exam 02/04/2013 None Full Exam - General 1994 Ears/Nose/Throat otoscopic exam External auditory canal: partial cerumen occlusion 02/04/2013 None Full Exam - General 1994 [...] time 12/20/2012 None Full Exam - General 1995 Psychiatric mood and affect Mood: depressed 12/20/2012 None Full Exam - General 1995 [...] benign 08/23/2012 None Full Exam - General 1995 Neurologic [...] accomodation 08/13/2012 None Full Exam - General 1995 [...] accomodation 05/28/2012 None Full Exam - General 1994 [...] 11/03/2011 great toe Full Exam - General 1995 Integument inspection of skin Consistency: moist 11/03/2011 [...] Date GLUC MONITOR CONT PHYS I&R CPT-4: 15810 04/27/2018 URINALYSIS NONAUTO W/O SCOPE CPT-4: 01522 04/10/2018 GLUCOSE MONITORING CONT CPT-4: 53585 04/10/2018 OCCULT BLOOD FECES CPT -4: 11858 02/22/2018 URINALYSIS NONAUTO W/O SCOPE CPT-4: 74797 02/20/2018 URINALYSIS NONAUTO W/O SCOPE CPT-4: 51076 12/14/2017 URINALYSIS NONAUTO W/O SCOPE CPT-4: 12951 11/27/2017 PPPS, SUBSEQ VISIT CPT -4: G0439 10/27/2017 GLUCOSE MONITORING CONT CPT-4: 38635 09/27/2017 URINALYSIS NONAUTO W/O SCOPE CPT-4: 54916 06/30/2017 URINALYSIS NONAUTO W/O SCOPE CPT-4: 45005 11/25/2016 URINALYSIS NONAUTO W/O SCOPE CPT-4: 55912 10/21/2016 URINALYSIS NONAUTO W/O SCOPE CPT-4: 10086 06/24/2016 URINALYSIS NONAUTO W/O SCOPE CPT-4: 05023 04/11/2016 ADMIN PNEUMOCOCCAL VACCINE SNOMED CT: [id number] CPT-4: G0009 02/26/2016 PNEUMOCOCCAL VACC 13 ANURADHA IM Formatting Model/CDA Sections, Assigned to/Jada Velazquez SNOMED CT: [id number] CPT-4: 13852Urryyiy 02/26/2016 URINALYSIS NONAUTO W/O SCOPE CPT-4: 97846 02/10/2016 URINALYSIS NONAUTO W/O SCOPE CPT-4: 07542 11/27/2015 URINALYSIS NONAUTO W/O SCOPE CPT-4: 52724 11/02/2015 INITIAL PREVENTIVE EXAM CPT-4: G0402 09/29/2015 URINALYSIS NONAUTO W/O SCOPE CPT-4: 24261 07/20/2015 TRIAMCINOLONE ACET INJ NOS CPT-4: J3301 06/26/2015 URINALYSIS NONAUTO W/O SCOPE CPT-4: 30692 11/05/2014 URINALYSIS NONAUTO W/O SCOPE CPT-4: 95506 04/21/2014 CULTURE AEROBIC IDENTIFY CPT-4: 93329 12/12/2013 URINALYSIS NONAUTO W/O SCOPE CPT-4: 00613 11/18/2013 ROUTINE VENIPUNCTURE CPT-4: 13922 09/10/2013 ROUTINE VENIPUNCTURE CPT-4: 96259 08/01/2013 URINALYSIS NONAUTO W/O SCOPE CPT-4: 08148 06/28/2013 TRIAMCINOLONE ACET INJ NOS CPT-4: J3301 05/07/2013 DRAIN/INJECT JOINT/BURSA CPT-4: 13540 05/07/2013 ROUTINE VENIPUNCTURE CPT-4: 07324 03/21/2013 ROUTINE VENIPUNCTURE CPT-4: 52657 01/17/2013 URINALYSIS NONAUTO W/O SCOPE CPT-4: 98617 01/01/2013 ROUTINE VENIPUNCTURE CPT-4: 32679 12/31/2012 ROUTINE VENIPUNCTURE CPT-4: 38856 12/20/2012 URINALYSIS NONAUTO W/O SCOPE CPT-4: 30065 11/05/2012 DRAIN/INJECT JOINT/BURSA CPT-4: 08835 09/21/2012 TRIAMCINOLONE ACET INJ NOS CPT-4: J3301 09/21/2012 URINALYSIS NONAUTO W/O SCOPE CPT-4: 24775 07/19/2012 TRIAMCINOLONE ACET INJ NOS CPT-4: J3301 07/06/2012 Pneumococcal Polysaccharide Vaccine, 23-Valent, Ad CPT-4: 56503 06/07/2012 IMMUNIZATION ADMIN CPT -4: 01169 06/07/2012 TRIAMCINOLONE ACET INJ NOS CPT-4: J3301 05/02/2012 ROUTINE VENIPUNCTURE CPT-4: 65618 02/01/2012 URINALYSIS NONAUTO W/O SCOPE CPT-4: 92318 02/01/2012 TRIAMCINOLONE ACET INJ NOS CPT-4: J3301 12/14/2011 INJ TRIGGER POINT 1/2 MUSCL CPT-4: 14977 12/14/2011 PROMETHAZINE HCL INJECTION CPT-4: J2550 11/30/2011 ROUTINE VENIPUNCTURE CPT-4: 11291 11/30/2011 TRIAMCINOLONE ACET INJ NOS CPT-4: J3301 08/01/2011 DRAIN/INJECT [facility]INT[facility] CPT-4: 44389 08/01/2011 THER/PROPH/DIAG INJ SC/IM CPT-4: 34891 04/18/2011 TRIAMCINOLONE ACET INJ NOS CPT-4: J3301 04/18/2011 Vital Signs Date Vital 04/27/2018 Blood Pressure 1: 122/54 Code : 8480-6 BMI: 39.7 Code : 14725-9 Heart Rate 1 : 84 bpm Height: 5'2" SpO2: 92% 04/10/2018 Blood Pressure 1: 120/68 Code : 8480-6 BMI: 39.7 Code : 54923-1 Heart Rate 1 : 87 bpm Height: 5'2" SpO2: 99% Weight: 217 lbs 03/12/2018 Blood Pressure 1: 140/70 Code : 8480-6 BMI: 40.2 Code : 38329-4 Heart Rate 1 : 78 bpm Height: 5'2" SpO2: 98% Weight: 220 lbs 02/20/2018 Blood Pressure 1: 140/70 Code : 8480-6 BMI: 40.2 Code : 30485-9 Heart Rate 1 : 96 bpm Height: 5'2" SpO2: 93% Weight: 220 lbs 11/27/2017 Blood Pressure 1: 158/78 Code : 8480-6 BMI: 40.8 Code : 05156-4 Heart Rate 1 : 100 bpm Height: 5'2" SpO2: 95% Weight: 223 lbs 10/27/2017 Blood Pressure 1: 146/70 Code : 8480-6 BMI: 41.3 Code : 04852-8 Heart Rate 1 : 82 bpm Height: 5'2" SpO2: 99% Waist Measure (cm): 119 cm Weight: 226 lbs 09/15/2017 Blood Pressure 1: 136/66 Code : 8480-6 BMI: 41.5 Code : 82850-8 Heart Rate 1 : 94 bpm Height: 5'2" SpO2: 96% Weight: 227 lbs 08/18/2017 Blood Pressure 1: 120/68 Code : 8480-6 BMI: 41.5 Code : 64090-4 Heart Rate 1 : 87 bpm Height: 5'2" SpO2: 94% Weight: 227 lbs 08/03/2017 Blood Pressure 1: 132/72 Code : 8480-6 BMI: 41.5 Code : 97622-9 Heart Rate 1 : 93 bpm Height: 5'2" SpO2: 95% Weight: 227 lbs 07/27/2017 Blood Pressure 1: 128/84 Code : 8480-6 BMI: 41.5 Code : 47511-0 Heart Rate 1 : 91 bpm Height: 5'2" SpO2: 98% Weight: 227 lbs 06/13/2017 Blood Pressure 1: 136/84 Code : 8480-6 BMI: 42.6 Code : 70481-7 Heart Rate 1 : 91 bpm Height: 5'2" SpO2: 94% Weight: 233 lbs 04/21/2017 Blood Pressure 1: 142/84 Code : 8480-6 BMI: 42.8 Code : 10081-9 Heart Rate 1 : 89 bpm Height: 5'2" SpO2: 94% Weight: 234 lbs 04/18/2017 Blood Pressure 1: 140/86 Code : 8480-6 BMI: 42.8 Code : 02253-5 Heart Rate 1 : 89 bpm Height: 5'2" SpO2: 97% Weight: 234 lbs 03/27/2017 Blood Pressure 1: 148/76 Code : 8480-6 BMI: 42.6 Code : 40677-6 Heart Rate 1 : 92 bpm Height: [...] Code : 8480-6 BMI: 44.3 Code : 43461-4 Heart Rate 1 : 90 bpm Height: 5'2" SpO2: 96% Weight: 242 lbs 01/30/2017 Blood Pressure 1: 132/72 Code : 8480-6 Heart Rate 1: 97 bpm Height: 5'2" SpO2: 96% Weight: 01/16/2017 Blood Pressure 1: 138/76 Code : 8480-6 BMI: 43.3 Code : 30989-3 Heart Rate 1 : 84 bpm Height: 5'2" SpO2: 99% Weight: 237 lbs 12/13/2016 Blood Pressure 1: 144/78 Code : 8480-6 Heart Rate 1: 96 bpm Height: 5'2" SpO2: 98% Temperature: 36.6 (C) / 97.9 (F) Weight: 11/11/2016 Blood Pressure 1: 144/80 Code : 8480-6 BMI: 43.0 Code : 82534-0 Heart Rate 1 : 89 bpm Height: 5'2" SpO2: 94% Temperature: 36.1 (C) / 97.0 (F) Weight: 235 lbs 10/28/2016 Blood Pressure 1: 156/82 Code : 8480-6 BMI: 43.9 Code : 28292-1 Heart Rate 1 : 78 bpm Height: [...] Code : 8480-6 BMI: 42.4 Code : 91940-8 Heart Rate 1 : 95 bpm Height: 5'2" SpO2: 98% Weight: 232 lbs 08/09/2016 Blood Pressure 1: 138/80 Code : 8480-6 BMI: 41.0 Code : 52752-7 Heart Rate 1 : 98 bpm Height: 5'2" SpO2: 97% Weight: 224 lbs 07/26/2016 Blood Pressure 1: 148/82 Code : 8480-6 BMI: 42.4 Code : 98000-6 Heart Rate 1 : 89 bpm Height: 5'2" SpO2: 97% Weight: 232 lbs 05/24/2016 Blood Pressure 1: 146/72 Code : 8480-6 BMI: 42.4 Code : 82114-2 Heart Rate 1 : 89 bpm Height: 5'2" SpO2: 99% Weight: 232 lbs 04/19/2016 Blood Pressure 1: 130/88 Code : 8480-6 BMI: 42.4 Code : 04990-7 Heart Rate 1 : 88 bpm Height: 5'2" SpO2: 98% Weight: 232 lbs 04/11/2016 Blood Pressure 1: 140/80 Code : 8480-6 BMI: 41.7 Code : 52944-2 Heart Rate 1 : 97 bpm Height: 5'2" SpO2: 95% Weight: 228 lbs 03/21/2016 Blood Pressure 1: 138/80 Code : 8480-6 BMI: 44.4 Code : 11100-1 Height: 5'2" Weight: 243 lbs 03/11/2016 Blood Pressure 1: 138/82 Code : 8480-6 BMI: 44.4 Code : 25144-7 Heart Rate 1 : 86 bpm Height: 5'2" SpO2: 95% Weight: 243 lbs 02/26/2016 Blood Pressure 1: 130/82 Code : 8480-6 BMI: 43.9 Code : 96680-6 Heart Rate 1 : 86 bpm Height: 5'2" SpO2: 97% Weight: 240 lbs 02/02/2016 Blood Pressure 1: 136/86 Code : 8480-6 Heart Rate 1: 56 bpm Height: SpO2: 96% Weight: 12/17/2015 Blood Pressure 1: 140/80 Code : 8480-6 BMI: 40.2 Code : 30104-0 Heart Rate 1 : 100 bpm Height: 5'2" SpO2: 99% Weight: 220 lbs 12/08/2015 Blood Pressure 1: 132/86 Code : 8480-6 Heart Rate 1: 100 bpm Height: SpO2: 97% Weight: 11/27/2015 Blood Pressure 1: 128/82 Code : 8480-6 BMI: 39.3 Code : 07577-8 Heart Rate 1 : 112 bpm Height: 5'2" SpO2: 96% Weight: 215 lbs 11/12/2015 Blood Pressure 1: 168/88 Code : 8480-6 Heart Rate 1: 106 bpm Height: 5'2" SpO2: 96% Weight: 11/10/2015 Blood Pressure 1: 156/80 Code : 8480-6 Heart Rate 1: 94 bpm Height: 5'2" SpO2: 96% Weight: 10/27/2015 Blood Pressure 1: 142/76 Code : 8480-6 BMI: 40.8 Code : 20473-7 Heart Rate 1 : 86 bpm Height: 5'2" SpO2: 97% Weight: 223 lbs 09/29/2015 Blood Pressure 1: 132/88 Code : 8480-6 BMI: 41.7 Code : 24975-7 Heart Rate 1 : 104 bpm Height: 5'2" SpO2: 94% Weight: 228 lbs 09/22/2015 Blood Pressure 1: 130/80 Code : 8480-6 BMI: 41.7 Code : 33685-9 Heart Rate 1 : 89 bpm Height: 5'2" SpO2: 97% Weight: 228 lbs 09/01/2015 Blood Pressure 1: 138/88 Code : 8480-6 BMI: 40.6 Code : 13904-8 Heart Rate 1 : 95 bpm Height: 5'2" SpO2: 95% Weight: 222 lbs 08/10/2015 Blood Pressure 1: 140/82 Code : 8480-6 BMI: 41.0 Code : 53176-2 Heart Rate 1 : 84 bpm Height: 5'2" SpO2: 97% Weight: 224 lbs 06/26/2015 Blood Pressure 1: 152/72 Code : 8480-6 BMI: 41.2 Code : 91250-0 Heart Rate 1 : 92 bpm Height: 5'2" SpO2: 96% Weight: 225 lbs 04/14/2015 Blood Pressure 1: 158/86 Code : 8480-6 BMI: 41.2 Code : 34767-8 Heart Rate 1 : 63 bpm Height: 5'2" SpO2: 93% Weight: 225 lbs 03/03/2015 Blood Pressure 1: 152/80 Code : 8480-6 BMI: 40.1 Code : 31955-0 Heart Rate 1 : 101 bpm Height: 5'2" SpO2: 97% Weight: 219 lbs 01/15/2015 Blood Pressure 1: 127/76 Code : 8480-6 BMI: 40.6 Code : 86248-6 Heart Rate 1 : 109 bpm Height: 5'2" SpO2: 97% Weight: 222 lbs 01/01/2015 Blood Pressure 1: 136/64 Code : 8480-6 BMI: 40.4 Code : 46876-6 Heart Rate 1 : 94 bpm Height: 5'2" SpO2: 96% Weight: 221 lbs 12/25/2014 Blood Pressure 1: 146/80 Code : 8480-6 Heart Rate 1: 95 bpm Height: 5'2" SpO2: 94% 11/04/2014 Blood Pressure 1: 110/70 Code : 8480-6 BMI: 40.2 Code : 41785-3 Heart Rate 1 : 878 bpm Height: 5'2" SpO2: 97% Weight: 220 lbs 09/08/2014 Blood Pressure 1: 142/78 Code : 8480-6 BMI: 39.5 Code : 98490-9 Heart Rate 1 : 97 bpm Height: 5'2" SpO2: 98% Weight: 216 lbs 08/29/2014 Blood Pressure 1: 140/90 Code : 8480-6 Blood Pressure 2: 120/70 Code: 8480-6 BMI: 40.2 Code: 02258-0 Heart Rate 1: 88 bpm Height: 5'2" Weight: 220 lbs 06/30/2014 Blood Pressure 1: 132/74 Code : 8480-6 BMI: 39.1 Code : 49931-1 Heart Rate 1 : 76 bpm Height: 5'2" Weight: 214 lbs 06/12/2014 Blood Pressure 1: 118/76 Code : 8480-6 BMI: 40.4 Code : 77870-6 Heart Rate 1 : 86 bpm Height: 5'2" SpO2: 96% Weight: 221 lbs 05/26/2014 Blood Pressure 1: 128/78 Code : 8480-6 BMI: 39.5 Code : 33267-2 Heart Rate 1 : 76 bpm Height: 5'2" Weight: 216 lbs 04/15/2014 Blood Pressure 1: 144/72 Code : 8480-6 BMI: 40.8 Code : 20068-3 Heart Rate 1 : 60 bpm Height: 5'2" Weight: 223 lbs 03/25/2014 Blood Pressure 1: 118/72 Code : 8480-6 BMI: 41.2 Code : 25562-1 Heart Rate 1 : 80 bpm Height: 5'2" Weight: 225 lbs 03/03/2014 Blood Pressure 1: 138/86 Code : 8480-6 BMI: 41.5 Code : 05174-5 Heart Rate 1 : 104 bpm Height: 5'2" Temperature: 36.1 (C) / 97.0 (F) Weight: 227 lbs 02/13/2014 Blood Pressure 1: 142/88 Code : 8480-6 BMI: 40.8 Code : 89389-1 Heart Rate 1 : 88 bpm Height: 5'2" Weight: 223 lbs 01/27/2014 Blood Pressure 1: 124/68 Code : 8480-6 BMI: 39.9 Code : 44042-8 Heart Rate 1 : 89 bpm Height: 5'2" SpO2: 94% Weight: 218 lbs 12/26/2013 Blood Pressure 1: 108/52 Code : 8480-6 BMI: 41.2 Code : 49345-4 Heart Rate 1 : 96 bpm Height: 5'2" Weight: 225 lbs 12/12/2013 Blood Pressure 1: 158/88 Code : 8480-6 BMI: 42.6 Code : 71580-7 Heart Rate 1 : 80 bpm Height: 5'2" Weight: 233 lbs 11/14/2013 Blood Pressure 1: 120/60 Code : 8480-6 BMI: 42.4 Code : 55089-5 Heart Rate 1 : 96 bpm Height: 5'2" Temperature: 5423.3 (C ) / 9794.0 (F) Weight: 232 lbs 10/21/2013 Blood Pressure 1: 100/60 Code : 8480-6 BMI: 41.9 Code : 93600-4 Heart Rate 1 : 96 bpm Height: 5'2" Weight: 229 lbs 10/03/2013 Blood Pressure 1: 122/72 Code : 8480-6 BMI: 42.3 Code : 36441-9 Heart Rate 1 : 84 bpm Height: 5'2" Weight: 231 lbs 09/27/2013 Blood Pressure 1: 112/58 Code : 8480-6 Heart Rate 1: 72 bpm SpO2: 93% Temperature: 36.2 (C) / 97.1 (F) Weight: 09/23/2013 Blood Pressure 1: 108/76 Code : 8480-6 BMI: 42.4 Code : 40214-6 Heart Rate 1 : 95 bpm Height: 5'2" SpO2: 96% Weight: 232 lbs 09/20/2013 Blood Pressure 1: 150/88 Code : 8480-6 BMI: 42.4 Code : 42968-2 Heart Rate 1 : 104 bpm Height: 5'2" Weight: 232 lbs 09/10/2013 Blood Pressure 1: 112/62 Code : 8480-6 Heart Rate 1: 88 bpm Weight: 238 lbs 08/19/2013 Blood Pressure 1: 102/58 Code : 8480-6 BMI: 43.7 Code : 32873-8 Heart Rate 1 : 80 bpm Height: 5'2" Weight: 239 lbs 08/12/2013 Blood Pressure 1: 110/60 Code : 8480-6 BMI: 43.3 Code : 28479-8 Heart Rate 1 : 90 bpm Height: 5'2" SpO2: 96% Weight: 236 lbs 8 oz 08/01/2013 Blood Pressure 1: 128/72 Code : 8480-6 BMI: 42.6 Code : 19387-5 Heart Rate 1 : 78 bpm Height: 5'2" SpO2: 97% Weight: 233 lbs 07/19/2013 Blood Pressure 1: 100/60 Code : 8480-6 BMI: 44.3 Code : 00283-4 Heart Rate 1 : 92 bpm Height: 5'2" Temperature: 36.2 (C) / 97.2 (F) Weight: 242 lbs 07/15/2013 Blood Pressure 1: 180/92 Code : 8480-6 Heart Rate 1: 115 bpm SpO2: 98% Weight: 06/27/2013 Blood Pressure 1: 114/64 Code : 8480-6 BMI: 44.1 Code : 64838-4 Heart Rate 1 : 114 bpm Height: 5'2" SpO2: 93% Weight: 241 lbs 06/10/2013 Blood Pressure 1: 174/86 Code : 8480-6 BMI: 44.1 Code : 74135-0 Heart Rate 1 : 132 bpm Height: 5'2" SpO2: 94% Temperature: 35.6 (C) / 96.0 (F) Weight: 241 lbs 05/07/2013 Blood Pressure 1: 160/88 Code : 8480-6 BMI: 43.5 Code : 77581-2 Heart Rate 1 : 108 bpm Height: 5'2" SpO2: 96% Weight: 238 lbs 04/16/2013 Blood Pressure 1: 116/62 Code : 8480-6 BMI: 44.6 Code : 83290-5 Heart Rate 1 : 90 bpm Height: 5'2" SpO2: 94% Weight: 244 lbs 03/21/2013 Blood Pressure 1: 102/64 Code : 8480-6 BMI: 42.8 Code : 21123-6 Height: 5'2" Weight: 234 lbs 02/12/2013 Blood Pressure 1: 130/78 Code : 8480-6 BMI: 42.0 Code : 23338-9 Heart Rate 1 : 100 bpm Height: 5'2" Weight: 229 lbs 8 oz 02/04/2013 Blood Pressure 1: 126/68 Code : 8480-6 BMI: 44.3 Code : 35536-6 Heart Rate 1 : 88 bpm Height: 5'2" Weight: 242 lbs 01/17/2013 Blood Pressure 1: 132/76 Code : 8480-6 Heart Rate 1: 121 bpm SpO2: 97% Weight: 242 lbs 12/31/2012 Blood Pressure 1: 144/90 Code : 8480-6 BMI: 43.0 Code : 79317-9 Heart Rate 1 : 96 bpm Height: 5'2" Temperature: 36.2 (C) / 97.2 (F) Weight: 235 lbs 12/20/2012 Blood Pressure 1: 156/96 Code : 8480-6 BMI: 42.4 Code : 10732-6 Heart Rate 1 : 96 bpm Height: [...] Code : 8480-6 BMI: 38.8 Code : 34220-8 Heart Rate 1 : 96 bpm Height: 5'2" Temperature: 36.3 (C) / 97.3 (F) Weight: 212 lbs 08/23/2012 Blood Pressure 1: 116/72 Code : 8480-6 BMI: 38.3 Code : 73436-3 Heart Rate 1 : 92 bpm Height: 5'2" Weight: 209 lbs 8 oz 08/13/2012 Blood Pressure 1: 140/92 Code : 8480-6 BMI: 37.3 Code : 47045-5 Heart Rate 1 : 104 bpm Height: 5'2" Weight: 204 lbs 08/07/2012 Blood Pressure 1: 148/98 Code : 8480-6 BMI: 36.6 Code : 41139-2 Heart Rate 1 : 102 bpm Height: [...] Code : 8480-6 BMI: 35.3 Code : 27252-5 Heart Rate 1 : 105 bpm Height: [...] december - she was seen by her tool programmer again in mid 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 She states that she saw her tool programmer and was to be started on another [...] lesion Alleviating Factors medication 09/10/2013 went to [facility] care on Monday and start on Cipro [...] differently. States she did eat BBQ from [employer] yesterday for lunch. hypertension Quality [...] data Encounters Encounter Performer Location Codes Date ([id number]) 56498 EST. PATIENT, LEVEL III Diagnosis: Cough[ICD10: R05] Diagnosis: Chronic maxillary sinusitis[ICD10: J32.0] Diagnosis: Type 2 diabetes mellitus with hyperglycemia[ICD10: E11.65] [facility] CPT-4: 54560 04/27/2018 ([id number]) 56206 EST. PATIENT, LEVEL IV Diagnosis: Essential (primary) hypertension[ICD10: I10] Diagnosis: Type 2 diabetes mellitus with hyperglycemia[ICD10: E11.65] Diagnosis: Generalized anxiety disorder[ICD10: F41.1] Diagnosis: Weakness[ICD10: R53.1] [facility] CPT-4: 23388 04/10/2018 ([id number]) 53911 EST. PATIENT, LEVEL IV Diagnosis: Type 2 diabetes mellitus with hyperglycemia[ICD10: E11.65] Diagnosis: Low back pain[ICD10: M54.5] Diagnosis: Essential (primary) hypertension[ICD10: I10] Diagnosis: Generalized anxiety disorder[ICD10: F41.1] Rika Motta MD, [facility] CPT-4: 79873 03/12/2018 ([id number]) 67005 EST. PATIENT, LEVEL III Diagnosis: Type 2 diabetes mellitus with hyperglycemia[ICD10: E11.65] Diagnosis: Essential (primary) hypertension[ICD10: I10] Diagnosis: Dysuria[ICD10: R30.0] Diagnosis: Vitamin D deficiency, unspecified[ICD10: E55.9] Diagnosis: Low back pain[ICD10: M54.5] Rika Motta MD, [facility] CPT-4: 76555 02/20/2018 ([id number]) 01686 EST. PATIENT, LEVEL III Diagnosis: Dysuria[ICD10: R30.0] Diagnosis: Essential (primary) hypertension[ICD10: I10] Rika Motta MD, [facility] CPT-4: 00369 11/27/2017 ([id number]) 06609 EST. PATIENT, LEVEL III Diagnosis: Type 2 diabetes mellitus with hyperglycemia[ICD10: E11.65] Diagnosis: Chronic pain syndrome[ICD10: G89.4] Rika Motta MD, [facility] CPT-4: 00560 09/15/2017 ([id number]) 19577 EST. 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 PATIENT, LEVEL III Diagnosis: Chronic maxillary sinusitis[ICD10: J32.0] Diagnosis: Type 2 diabetes mellitus with hyperglycemia[ICD10: E11.65] Diagnosis: Hordeolum externum left upper eyelid[ICD10: H00.014] Rika Motta MD, [facility] CPT-4: 95267 08/03/2017 ([id number]) 07448 EST. PATIENT, LEVEL IV Diagnosis: Type 2 diabetes mellitus with hyperglycemia[ICD10: E11.65] Diagnosis: Hordeolum externum left upper eyelid[ICD10: H00.014] Diagnosis: Essential (primary) hypertension[ICD10: I10] Diagnosis: Chronic obstructive pulmonary disease, unspecified[ICD10: J44.9] Rika Motta MD, [facility] CPT-4: 55515 07/27/2017 ([id number]) 42707 EST. PATIENT, LEVEL IV Diagnosis: Type 2 diabetes mellitus with hyperglycemia[ICD10: E11.65] Diagnosis: Essential (primary) hypertension[ICD10: I10] Tessie Motta MD, [facility] CPT-4: 19211 06/13/2017 57995 EST. PATIENT, LEVEL IV Diagnosis: Periapical abscess without sinus[ICD10: K04.7] Arlette Motta MD, [facility] CPT-4: 77412 04/21/2017 ([id number]) 88219 EST. PATIENT, LEVEL IV Diagnosis: Type 2 diabetes mellitus with hyperglycemia[ICD10: E11.65] Diagnosis: Cellulitis of abdominal wall[ICD10: L03.311] Diagnosis: Chronic pain syndrome[ICD10: G89.4] Diagnosis: Essential (primary) hypertension[ICD10: I10] Diagnosis: Unsteadiness on feet[ICD10: R26.81] Rika Motta MD, [facility] CPT-4: 47817 04/18/2017 ([id number]) 12494 EST. PATIENT, LEVEL IV Diagnosis: Type 2 diabetes mellitus with hyperglycemia[ICD10: E11.65] Diagnosis: Hypokalemia[ICD10: E87.6] Diagnosis: Essential (primary) hypertension[ICD10: I10] Diagnosis: Paroxysmal atrial fibrillation[ICD10: I48.0] Rika Motta MD, [facility] CPT-4: 73205 03/27/2017 ([id number]) 94160 EST. PATIENT, LEVEL IV Diagnosis: Essential (primary) hypertension[ICD10: I10] Diagnosis: Type 2 diabetes mellitus with hyperglycemia[ICD10: E11.65] Diagnosis: Hypokalemia[ICD10: E87.6] Diagnosis: Generalized abdominal pain[ICD10: R10.84] Rika Motta MD, [facility] CPT-4: 87448 02/27/2017 ([id number] EST. PATIENT, LEVEL III Diagnosis: Drug induced constipation[ICD10: K59.03] Rika Motta MD, [facility] CPT-4: 12571 02/21/2017 ([id number]) 01956 EST. PATIENT, LEVEL IV Diagnosis: Generalized abdominal pain[ICD10: R10.84] Diagnosis: Hypokalemia[ICD10: E87.6] Diagnosis: Hypomagnesemia[ICD10: E83.42] Rika Motta MD, [facility] CPT-4: 38052 02/17/2017 ([id number]) 77547 EST. PATIENT, LEVEL IV Diagnosis: Paroxysmal atrial fibrillation[ICD10: I48.0] Diagnosis: Essential (primary) hypertension[ICD10: I10] Diagnosis: Chronic obstructive pulmonary disease, unspecified[ICD10: J44.9] Diagnosis: Type 2 diabetes mellitus with hyperglycemia[ICD10: E11.65] Diagnosis: Diarrhea, unspecified[ICD10: R19.7] Rika Motta MD, [facility] CPT-4: 38629 02/13/2017 ([id number]) 05108 EST. PATIENT, LEVEL IV Diagnosis: Type 2 diabetes mellitus with hyperglycemia[ICD10: E11.65] Diagnosis: Pain in right shoulder[ICD10: M25.511] Diagnosis: Chronic maxillary sinusitis[ICD10: J32.0] Rika Motta MD, [facility] CPT-4: 11063 01/30/2017 ([id number]) 46414 EST. PATIENT, LEVEL IV Diagnosis: Essential (primary) hypertension[ICD10: I10] Diagnosis: Type 2 diabetes mellitus with hyperglycemia[ICD10: E11.65] Diagnosis: Hypothyroidism, unspecified[ICD10: E03.9] Diagnosis: Generalized anxiety disorder[ICD10: F41.1] Diagnosis: Chronic pain syndrome[ICD10: G89.4] Diagnosis: Restless legs syndrome[ICD10: G25.81] Diagnosis: Obstructive sleep apnea (adult) (pediatric)[ICD10: G47.33] Rika Motta MD, [facility] CPT-4: 72665 01/16/2017 71248 EST. PATIENT, LEVEL IV Diagnosis: Other acute sinusitis[ICD10: J01.80] Diagnosis: Diplopia[ICD10: H53.2] Arlette Motta MD, [facility] CPT-4: 98248 12/13/2016 ([id number]) 74891 EST. PATIENT, LEVEL IV Diagnosis: Essential (primary) hypertension[ICD10: I10] Diagnosis: Fasciculation[ICD10: R25.3] Diagnosis: Generalized anxiety disorder[ICD10: F41.1] Diagnosis: Other obesity due to excess calories[ICD10: E66.09] Diagnosis: Zoster without complications[ICD10: B02.9] Diagnosis: Unilateral primary osteoarthritis, right knee[ICD10: M17.11] Diagnosis: Unsteadiness on feet[ICD10: R26.81] Rika Motta MD, [facility] CPT-4: 73594 11/11/2016 ([id number]) 99365 EST. PATIENT, LEVEL IV Diagnosis: Zoster without complications[ICD10: B02.9] Diagnosis: Type 2 diabetes mellitus with hyperglycemia[ICD10: E11.65] Diagnosis: Vomiting, unspecified[ICD10: R11.10] Rika Motta MD, [facility] CPT-4: 36395 10/28/2016 ([id number]) 80588 EST. PATIENT, LEVEL III Diagnosis: Pain in right knee[ICD10: M25.561] Diagnosis: Zoster without complications[ICD10: B02.9] Rika Motta MD, [facility] CPT-4: 87469 10/13/2016 ([id number]) 29215 EST. PATIENT, LEVEL IV Diagnosis: Acute recurrent maxillary sinusitis[ICD10: J01.01] Diagnosis: Low back pain[ICD10: M54.5] Diagnosis: Pain in right knee[ICD10: M25.561] Diagnosis: Allergic rhinitis due to pollen[ICD10: J30.1] Rika Motta MD, [facility] CPT-4: 90673 09/23/2016 ([id number]) 78333 EST. PATIENT, LEVEL IV Diagnosis: Pain in right shoulder[ICD10: M25.511] Diagnosis: Type 2 diabetes mellitus with hyperglycemia[ICD10: E11.65] Diagnosis: Cervicalgia[ICD10: M54.2] Diagnosis: Candidiasis of skin and nail[ICD10: B37.2] Diagnosis: Low back pain[ICD10: M54.5] Rika Motta MD, [facility] CPT-4: 18716 09/13/2016 ([id number]) 37844 EST. 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 PATIENT, LEVEL IV Diagnosis: Type 2 diabetes mellitus with hyperglycemia[ICD10: E11.65] Diagnosis: Candidiasis of skin and nail[ICD10: B37.2] Diagnosis: Chronic obstructive pulmonary disease, unspecified[ICD10: J44.9] Diagnosis: Paroxysmal atrial fibrillation[ICD10: I48.0] Diagnosis: Pneumonia, unspecified organism[ICD10: J18.9] Rika Motta MD, [facility] CPT-4: 08713 07/26/2016 ([id number]) 89175 EST. PATIENT, LEVEL IV Diagnosis: Type 2 diabetes mellitus with hyperglycemia[ICD10: E11.65] Diagnosis: Generalized anxiety disorder[ICD10: F41.1] Diagnosis: Essential (primary) hypertension[ICD10: I10] Diagnosis: Chronic pain syndrome[ICD10: G89.4] Rika Motta MD, [facility] CPT-4: 06491 05/24/2016 ([id number]) 15719 EST. PATIENT, LEVEL IV Diagnosis: Menopausal and female climacteric states[ICD10: N95.1] Diagnosis: Type 2 diabetes mellitus with hyperglycemia[ICD10: E11.65] Diagnosis: Generalized anxiety disorder[ICD10: F41.1] Rika Motta MD, [facility] CPT-4: 54966 04/19/2016 ([id number]) 98221 EST. PATIENT, LEVEL IV Diagnosis: Type 2 diabetes mellitus with hyperglycemia[ICD10: E11.65] Diagnosis: Generalized anxiety disorder[ICD10: F41.1] Diagnosis: Essential (primary) hypertension[ICD10: I10] Diagnosis: Dysuria[ICD10: R30.0] Rika Motta MD, [facility] CPT-4: 99784 04/11/2016 [id number] 72836 EST. PATIENT, LEVEL IV Diagnosis: Generalized anxiety disorder[ICD10: F41.1] Diagnosis: Major depressive disorder, single episode, mild[ICD10: F32.0] Diagnosis: Hypothyroidism, unspecified[ICD10: E03.9] Diagnosis: Type 2 diabetes mellitus with hyperglycemia[ICD10: E11.65] Rika Motta MD, [facility] CPT-4: 41370 03/21/2016 73401 07457 EST. PATIENT, LEVEL IV Diagnosis: Type 2 diabetes mellitus with hyperglycemia[ICD10: E11.65] Diagnosis: Cellulitis of right lower limb[ICD10: L03.115] Diagnosis: Other elevated white blood cell count[ICD10: D72.828] Diagnosis: Localized edema[ICD10: R60.0] Rika Motta MD, [facility] CPT-4: 84412 03/11/2016 ([id number]) 70062 EST. PATIENT, LEVEL IV Diagnosis: Type 2 diabetes mellitus with hyperglycemia[ICD10: E11.65] Diagnosis: Localized edema[ICD10: R60.0] Diagnosis: Other conjunctivitis[ICD10: H10.89] Diagnosis: Obstructive sleep apnea (adult) (pediatric)[ICD10: G47.33] Diagnosis: Unspecified asthma, uncomplicated[ICD10: J45.909] Diagnosis: VAC STREP PNEUMONIAE-FLU[ICD10: Z23] Rika Motta MD, [facility] CPT-4: 92498 02/26/2016 [id number] 17558 EST. PATIENT, LEVEL IV Diagnosis: Essential (primary) hypertension[ICD10: I10] Diagnosis: Paroxysmal atrial fibrillation[ICD10: I48.0] Diagnosis: Type 2 diabetes mellitus with hyperglycemia[ICD10: E11.65] Diagnosis: Obstructive sleep apnea (adult) (pediatric)[ICD10: G47.33] Diagnosis: Chronic obstructive pulmonary disease, unspecified[ICD10: J44.9] Rika Motta MD, [facility] CPT-4: 52704 02/02/2016 ([id number] 28812 EST. 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 PATIENT, LEVEL IV Diagnosis: Type 2 diabetes mellitus with hyperglycemia[ICD10: E11.65] Diagnosis: Generalized anxiety disorder[ICD10: F41.1] Diagnosis: Essential (primary) hypertension[ICD10: I10] Diagnosis: Restless legs syndrome[ICD10: G25.81] Diagnosis: Dysuria[ICD10: R30.0] Rika Motta MD, [facility] CPT-4: 27343 11/27/2015 [id number] EST. PATIENT, LEVEL IV Diagnosis: Addisonian crisis[ICD10: E27.2] Arlette Motta MD, [facility] CPT-4 : 13220 11/12/2015 [id number] EST. PATIENT, LEVEL IV Diagnosis: Acute bronchitis due to other specified organisms[ICD10: J20.8] Diagnosis: Other acute sinusitis[ICD10: J01.80] Diagnosis: Other malaise[ICD10: R53.81] Diagnosis: Cough[ICD10: R05] Arlette Motta MD, [facility] CPT-4: 55367 11/10/2015 [id number] EST. PATIENT, LEVEL IV Diagnosis: Pain in left knee[ICD10: M25.562] Diagnosis: Cellulitis of right toe[ICD10: L03.031] Arlette Motta MD, [facility] CPT-4: 35856 10/27/2015 ([id number]) [id number] EST. PATIENT, LEVEL IV Diagnosis: Essential (primary) hypertension[ICD10: I10] Diagnosis: Localized edema[ICD10: R60.0] Diagnosis: Type 2 diabetes mellitus with hyperglycemia[ICD10: E11.65] Rika Motta MD, [facility] CPT-4: 41926 09/22/2015 ([id number]) 37732 EST. PATIENT, LEVEL IV Diagnosis: Essential (primary) hypertension[ICD10: I10] Diagnosis: Type 2 diabetes mellitus with hyperglycemia[ICD10: E11.65] Diagnosis: Cellulitis of right toe[ICD10: L03.031] Rkia Motta MD, [facility] CPT-4: 29504 09/01/2015 ([id number]) 40872 EST. PATIENT, LEVEL IV Diagnosis: Type 2 diabetes mellitus with hyperglycemia[ICD10: E11.65] Diagnosis: Essential (primary) hypertension[ICD10: I10] Diagnosis: Generalized anxiety disorder[ICD10: F41.1] Diagnosis: Hypothyroidism, unspecified[ICD10: E03.9] Diagnosis: Body mass index (BMI) 40.0-44.9, adult[ICD10: Z68.41] Rika Motta MD, [facility] CPT-4: 73385 08/10/2015 28559 EST. PATIENT, LEVEL IV Diagnosis: Acute bronchitis due to other specified organisms[ICD10: J20.8] Diagnosis: Pain in left knee[ICD10: M25.562] Diagnosis: Type 2 diabetes mellitus with hyperglycemia[ICD10: E11.65] Arlette Motta MD, [facility] CPT-4: 81708 06/26/2015 ([id number]) 72698 EST. PATIENT, LEVEL IV Diagnosis: Cellulitis of right lower limb[ICD10: L03.115] Diagnosis: Type 2 diabetes mellitus with hyperglycemia[ICD10: E11.65] Diagnosis: Essential (primary) hypertension[ICD10: I10] Diagnosis: Edema, unspecified[ICD10: R60.9] Rika Motta MD, [facility] CPT-4: 17170 04/14/2015 ([id number]) 23055 EST. PATIENT, LEVEL IV Diagnosis: Essential (primary) hypertension[ICD10: I10] Diagnosis: Type 2 diabetes mellitus with hyperglycemia[ICD10: E11.65] Diagnosis: Localized edema[ICD10: R60.0] Diagnosis: Dysuria[ICD10: R30.0] Rika Motta MD, [facility] CPT-4: 71986 03/03/2015 ([id number]) 13448 EST. PATIENT, LEVEL III Diagnosis: Blister of leg[ICD9: 916.2] Diagnosis: Rash[ICD9: 782.1] Diagnosis: EDEMA[ICD9: 782.3] Tessie Motta MD, [facility] CPT-4: 69135 01/15/2015 ([id number]) 72371 EST. PATIENT, LEVEL IV Diagnosis: Cellulitis, leg[ICD9: 682.6] Diagnosis: DIABETES TYPE II[ICD9: 250.00] Tessie Motta MD, [facility] CPT- 4: 32466 01/01/2015 ([id number]) Miscellaneous no charge Diagnosis: CVA (cerebral vascular accident)[ICD9: 434.91] Isabella Motta MD, [facility] CPT-4: 78473 12/25/2014 ([id number]) 66932 EST. PATIENT, LEVEL IV Diagnosis: ESSENTIAL HYPERTENSION[ICD9: 401.9] Diagnosis: DM W/O COMPLICATION TYPE II, UNCONTROLLED[ICD9: 250.02] Diagnosis: EDEMA[ICD9: 782.3] Diagnosis: Dysuria[ICD9: 788.1] Rika Motta MD, [facility] CPT-4: 97711 11/04/2014 ([id number]) 81457 EST. PATIENT, LEVEL IV Diagnosis: EDEMA[ICD9: 782.3] Diagnosis: Cellulitis of right leg[ICD9: 682.6] Diagnosis: Allergic rhinitis[ICD9: 477.9] Rika Motta MD, [facility] CPT-4: 60681 09/08/2014 ([id number]) 07237 EST. PATIENT, LEVEL IV Diagnosis: EDEMA[ICD9: 782.3] Diagnosis: ESSENTIAL HYPERTENSION[ICD9: 401.9] Diagnosis: DIABETES TYPE II[ICD9: 250.00] Diagnosis: Cellulitis of right leg[ICD9: 682.6] Rika Motta MD, [facility] CPT-4: 95385 08/29/2014 ([id number]) 93480 EST. PATIENT, LEVEL III Diagnosis: EDEMA[ICD9: 782.3] Diagnosis: DIABETES TYPE II[ICD9: 250.00] Tessie Motta MD [facility] CPT- 4: 36055 06/30/2014 ([id number]) 28961 EST. PATIENT, LEVEL IV Diagnosis: EDEMA[ICD9: 782.3] Diagnosis: DM W/O COMPLICATION TYPE II, UNCONTROLLED[ICD9: 250.02] Diagnosis: Sciatica[ICD9: 724.3] Tessie Motta MD [facility] CPT-4: 06145 06/12/2014 ([id number]) 08677 EST. PATIENT, LEVEL III Diagnosis: Cellulitis, leg[ICD9: 682.6] Diagnosis: EDEMA[ICD9: 782.3] Rika Motta MD [facility] CPT-4: 75124 05/26/2014 ([id number]) 56659 EST. PATIENT, LEVEL IV Diagnosis: DIABETES TYPE II[ICD9: 250.00] Diagnosis: Chronic sinusitis[ICD9: 473.9] Tessie Motta MD, [facility] CPT- 4: 76447 04/15/2014 ([id number]) 90464 EST. PATIENT, LEVEL IV Diagnosis: DM W/O COMPLICATION TYPE II, UNCONTROLLED[ICD9: 250.02] Diagnosis: CHRONIC SINUSITIS[ICD9: 473.9] Diagnosis: EDEMA[ICD9: 782.3] Diagnosis: Right knee pain[ICD9: 719.46] Rika Motta MD [facility] CPT-4: 24073 03/25/2014 ([id number]) 98369 EST. PATIENT, LEVEL IV Diagnosis: Blister of leg[ICD9: 916.2] Diagnosis: EDEMA[ICD9: 782.3] Diagnosis: DM W/O COMPLICATION TYPE II, UNCONTROLLED[ICD9: 250.02] Diagnosis: ESSENTIAL HYPERTENSION[ICD9: 401.9] Rika Motta MD [facility] CPT-4: 12416 03/03/2014 ([id number]) 06710 EST. PATIENT, LEVEL IV Diagnosis: CELLULITIS OF LEG[ICD9: 682.6] Diagnosis: Diabetes mellitus type 2, uncontrolled[ICD9: 250.02] Diagnosis: ESSENTIAL HYPERTENSION[ICD9: 401.9] Diagnosis: EDEMA[ICD9: 782.3] Tessie Motta MD [facility] CPT-4: 41419 02/13/2014 ([id number]) 97795 EST. PATIENT, LEVEL IV Diagnosis: Diabetes mellitus type 2, uncontrolled[ICD9: 250.02] Tessie Motta MD [facility] CPT-4: 19604 01/27/2014 ([id number]) 69581 EST. PATIENT, LEVEL III Diagnosis: OPEN WND KNEE/LEG/ANKLE[ICD9: 891.0] Diagnosis: EDEMA[ICD9: 782.3] Rika Motta MD, [facility] CPT-4: 99615 12/26/2013 ([id number]) 43466 EST. PATIENT, LEVEL III Diagnosis: Cellulitis of right leg[ICD9: 682.6] Diagnosis: OPEN WND KNEE/LEG/ANKLE[ICD9: 891.0] Rika Motta MD [facility] CPT-4: 96152 12/12/2013 ([id number]) 14147 EST. PATIENT, LEVEL IV Diagnosis: Asthma exacerbation[ICD9: 493.92] Diagnosis: COUGH[ICD9: 786.2] Diagnosis: EDEMA[ICD9: 782.3] Rika Motta MD [facility] CPT-4: 23923 11/14/2013 ([id number]) 13829 EST. PATIENT, LEVEL III Diagnosis: OPEN WND KNEE/LEG/ANKLE[ICD9: 891.0] Diagnosis: EDEMA[ICD9: 782.3] Rika Motta MD [facility] CPT-4: 11913 10/21/2013 ([id number]) 84080 EST. PATIENT, LEVEL IV Diagnosis: ESSENTIAL HYPERTENSION[SNOMED: 55295400] Diagnosis: Right knee pain[ICD9: 719.46] Diagnosis: OPEN WND KNEE/LEG/ANKLE[ICD9: 891.0] Rika Motta MD, [facility] CPT-4: 91571 10/03/2013 ([id number]) Miscellaneous no charge Diagnosis: Open wound of leg[ICD9: 891.0] Rika Motta MD, [facility] CPT-4: 19322 09/27/2013 72484 EST. PATIENT, LEVEL II Diagnosis: Open wound of leg[ICD9: 891.0] Diagnosis: Wrist pain, left[ICD9: 719.43] Rika Motta MD, [facility] CPT-4: 09318 09/23/2013 ([id number]) 80222 EST. PATIENT, LEVEL IV Diagnosis: CELLULITIS OF LEG[ICD9: 682.6] Diagnosis: ESSENTIAL HYPERTENSION[SNOMED: 45825554] Diagnosis: EDEMA[ICD9: 782.3] Rika Motta MD, [facility] CPT-4: 16892 09/20/2013 ([id number]) 60109 EST. PATIENT, LEVEL IV Diagnosis: Open wound of right lower leg[ICD9: 891.0] Diagnosis: DM W/O COMPLICATION TYPE II, UNCONTROLLED[SNOMED: 30425294] Diagnosis: Edema[ICD9: 782.3] Rika Motta MD, [facility] CPT-4: 03370 09/10/2013 ([id number]) 21069 EST. PATIENT, LEVEL III Diagnosis: DM W/O COMPLICATION TYPE II, UNCONTROLLED[SNOMED: 36092963] Diagnosis: EDEMA[ICD9: 782.3] Tessie Motta MD, [facility] CPT-4: 13241 08/19/2013 ([id number]) 12059 EST. PATIENT, LEVEL IV Diagnosis: EDEMA[ICD9: 782.3] Diagnosis: DIABETES TYPE II[SNOMED: 717225833] Diagnosis: HYPOTHYROIDISM[ICD9: 244.9] Diagnosis: LUMBAGO[ICD9: 724.2] Diagnosis: SCIATICA[ICD9: 724.3] Tessie Motta MD, [facility] CPT-4: 91002 08/12/2013 ([id number]) 20025 EST. PATIENT, LEVEL IV Diagnosis: DIABETES TYPE II[SNOMED: 582741336] Diagnosis: EDEMA[ICD9: 782.3] Diagnosis: HYPOTHYROIDISM[ICD9: 244.9] Diagnosis: Encounter for long-term (current) use of other medications[ICD9: V58.69] Diagnosis: LUMBAGO[ICD9: 724.2] Rika Motta MD, [facility] CPT-4: 71403 08/01/2013 ([id number]) 86235 EST. PATIENT, LEVEL III Diagnosis: Blister of right foot[ICD9: 917.2] Rika Motta MD [facility] CPT-4: 53940 07/19/2013 ([id number]) 31103 EST. PATIENT, LEVEL III Diagnosis: Cellulitis of right leg[ICD9: 682.6] Diagnosis: ESSENTIAL HYPERTENSION[SNOMED: 91468260] Diagnosis: EDEMA[ICD9: 782.3] Rika Motta MD, [facility] CPT-4: 27040 07/15/2013 ([id number]) 85763 EST. PATIENT, LEVEL IV Diagnosis: DIABETES TYPE II[SNOMED: 750786197] Diagnosis: BACKACHE[ICD9: 724.5] Diagnosis: Muscle spasms of neck[ICD9: 728.85] Tessie Motta MD [facility] CPT-4: 42071 06/27/2013 ([id number]) 48386 EST. PATIENT, LEVEL IV Diagnosis: DM W/O COMPLICATION TYPE II, UNCONTROLLED[SNOMED: 34262396] Diagnosis: EDEMA[ICD9: 782.3] Diagnosis: OBESITY[ICD9: 278.00] Diagnosis: WHEEZING[ICD9: 786.07] Tessie Motta MD, [facility] CPT-4: 40781 06/10/2013 ([id number]) 09233 EST. PATIENT, LEVEL IV Diagnosis: CHRONIC SINUSITIS[ICD9: 473.9] Diagnosis: WHEEZING[ICD9: 786.07] Diagnosis: ACUTE BRONCHITIS[ICD9: 466.0] Diagnosis: Back pain[ICD9: 724.5] Tessie Motta MD, [facility] CPT-4: 22549 05/07/2013 ([id number]) 44360 EST. PATIENT, LEVEL IV Diagnosis: EDEMA[ICD9: 782.3] Diagnosis: COPD (chronic obstructive pulmonary disease) with acute bronchitis[ ICD9: 491.22] Tessie Motta MD, [facility] CPT-4: 31284 04/16/2013 ([id number]) 32091 EST. PATIENT, LEVEL IV Diagnosis: Lumbago[ICD9: 724.2] Diagnosis: DM W/O COMPLICATION TYPE II, UNCONTROLLED[SNOMED: 66697913] Diagnosis: EDEMA[ICD9: 782.3] Rika Motta MD, [facility] CPT-4: 29030 03/21/2013 ([id number]) 39378 EST. PATIENT, LEVEL IV Diagnosis: Abdominal pain[ICD9: 789.00] Diagnosis: EDEMA[ICD9: 782.3] Diagnosis: DIABETES TYPE II[SNOMED: 730581523] Tessie Motta MD [facility] CPT-4: 56162 02/12/2013 ([id number]) 34602 EST. PATIENT, LEVEL III Diagnosis: EDEMA[ICD9: 782.3] Diagnosis: RESPIRATORY ABNORM NEC[ICD9: 786.09] Tessie Motta MD [facility] CPT-4: 34068 02/04/2013 ([id number]) 42591 EST. PATIENT, LEVEL IV Diagnosis: Edema[ICD9: 782.3] Diagnosis: ESSENTIAL HYPERTENSION[SNOMED: 17437210] Tessie Motta MD, [facility] CPT-4: 33517 01/17/2013 ([id number]) 53340 EST. 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 PATIENT, LEVEL IV Diagnosis: Cellulitis of left leg[ICD9: 682.6] Diagnosis: DIABETES TYPE II[SNOMED: 326974290] Diagnosis: ESSENTIAL HYPERTENSION[SNOMED: 81477641] Diagnosis: EDEMA[ICD9: 782.3] Rika Motta MD, [facility] CPT-4: 81912 12/20/2012 ([id number]) 00407 EST. PATIENT, LEVEL III Diagnosis: Acute bronchitis[ICD9: 466.0] Diagnosis: COUGH[ICD9: 786.2] Tessie Motta MD, [facility] CPT-4: 42550 10/29/2012 ([id number]) 34880 EST. PATIENT, LEVEL IV Diagnosis: ESSENTIAL HYPERTENSION[SNOMED: 54931417] Diagnosis: DIABETES TYPE II[SNOMED: 528426410] Diagnosis: HYPOTHYROIDISM[ICD9: 244.9] Tessie Motta MD [facility] CPT- 4: 42988 09/06/2012 ([id number]) 94510 EST. PATIENT, LEVEL IV Diagnosis: DIABETES TYPE II[SNOMED: 430933428] Diagnosis: ESSENTIAL HYPERTENSION[SNOMED: 61053458] Diagnosis: Diarrhea[ICD9: 787.91] Tessie Motta MD, [facility] CPT-4: 54843 08/23/2012 ([id number]) 06111 EST. PATIENT, LEVEL III Diagnosis: ESSENTIAL HYPERTENSION[SNOMED: 07087769] Diagnosis: Gastroenteritis[ICD9: 558.9] Rika Motta MD, [facility] CPT-4: 52800 08/13/2012 ([id number]) 73327 EST. PATIENT, LEVEL IV Diagnosis: Diarrhea[ICD9: 787.91] Diagnosis: ESSENTIAL HYPERTENSION[SNOMED: 66691533] Diagnosis: DM W/O COMPLICATION TYPE II, UNCONTROLLED[SNOMED: 03770800] Rika Motta MD, [facility] CPT-4: 68757 08/07/2012 ([id number]) 99942 EST. PATIENT, LEVEL III Diagnosis: Acute sinusitis[ICD9: 461.9] Diagnosis: Thrush[ICD9: 112.0] Rika Motta MD [facility] CPT-4: 66068 07/06/2012 ([id number]) 40959 EST. PATIENT, LEVEL IV Diagnosis: ESSENTIAL HYPERTENSION[SNOMED: 29103779] Diagnosis: DIABETES TYPE II[SNOMED: 713526052] Tessie Motta MD, [facility] CPT-4: 19435 06/07/2012 ([id number]) 41818 EST. PATIENT, LEVEL IV Diagnosis: ESSENTIAL HYPERTENSION[SNOMED: 45793470] Diagnosis: ACUTE SINUSITIS[ICD9: 461.9] Diagnosis: Labial cyst[ICD9: 624.8] Tessie Motta MD, [facility] CPT-4: 12030 05/28/2012 ([id number]) 25019 EST. PATIENT, LEVEL IV Diagnosis: ESSENTIAL HYPERTENSION[SNOMED: 18263149] Diagnosis: EDEMA[ICD9: 782.3] Tessie Motta MD [facility] CPT-4: 65190 05/17/2012 (60209) 59445 EST. PATIENT, LEVEL IV Diagnosis: EDEMA[ICD9: 782.3] Diagnosis: ESSENTIAL HYPERTENSION[SNOMED: 14433577] Diagnosis: Diarrhea[ICD9: 787.91] Diagnosis: ALLERGIC RHINITIS[ICD9: 477.9] Tessie Motta MD [facility] CPT- 4: 79119 05/02/2012 ([id number]) 45687 EST. PATIENT, LEVEL IV Diagnosis: ACUTE SINUSITIS[ICD9: 461.9] Diagnosis: ESSENTIAL HYPERTENSION[SNOMED: 40757495] Diagnosis: ALLERGIC RHINITIS[ICD9: 477.9] Tessie Motta MD [facility] CPT- 4: 60021 04/10/2012 ([id number]) 08841 EST. PATIENT, LEVEL IV Diagnosis: ESSENTIAL HYPERTENSION[SNOMED: 32853421] Diagnosis: Foreign body in foot or toe[ICD9: 917.6] Diagnosis: EDEMA[ICD9: 782.3] Tessie Motta MD [facility] CPT-4: 00499 02/27/2012 ([id number]) 70941 EST. PATIENT, LEVEL IV Diagnosis: CELLULITIS OF FOOT[ICD9: 682.7] Diagnosis: DIABETES TYPE II[SNOMED: 109167724] Diagnosis: EDEMA[ICD9: 782.3] Tessie Motta MD [facility] CPT-4: 33202 02/15/2012 (44752) 98077 EST. PATIENT, LEVEL IV Diagnosis: EDEMA[ICD9: 782.3] Diagnosis: ESSENTIAL HYPERTENSION[SNOMED: 55491039] Diagnosis: ACUTE SINUSITIS[ICD9: 461.9] Diagnosis: Dysuria[ICD9: 788.1] Tessie Motta MD [facility] CPT-4: 43844 02/01/2012 ([id number]) 71938 EST. PATIENT, LEVEL IV Diagnosis: DIABETES TYPE II[SNOMED: 442246058] Diagnosis: Diverticulitis[ICD9: 562.11] Tessie Motta MD [facility] CPT- 4: 27583 12/14/2011 ([id number]) 31702 EST. PATIENT, LEVEL IV Diagnosis: Nausea vomiting and diarrhea[ICD9: 787.01] Diagnosis: ESSENTIAL HYPERTENSION[SNOMED: 52475615] Diagnosis: DM W/O COMPLICATION TYPE II, UNCONTROLLED[SNOMED: 79718177] Tessie Motta MD , [facility] CPT-4: 63806 11/30/2011 ([id number]) 50912 EST. PATIENT, LEVEL IV Diagnosis: ESSENTIAL HYPERTENSION[SNOMED: 64524172] Diagnosis: DIABETES TYPE II[SNOMED: 235345725] Diagnosis: COUGH[ICD9: 786.2] Tessie Motta MD, [facility] CPT-4: 20559 11/17/2011 ([id number]) Patient admitted to the hospital from clinic (NO CHARGE) Diagnosis: Tachycardia[ICD9: 785.0] Diagnosis: Dyspnea[ICD9: 786.09] Diagnosis: Wheezing[ICD9: 786.07] Diagnosis: FALL AGAINST OBJECT[ICD9: E888.1] Diagnosis: ANXIETY STATE[ICD9: 300.00] Diagnosis: ESSENTIAL HYPERTENSION[SNOMED: 30287499] Diagnosis: Chronic depression[ICD9: 311] Diagnosis: Diabetes mellitus type 2, uncontrolled[SNOMED: 26468050] Tessie Motta MD, [facility] CPT-4: 56441N 11/03/2011 ([id number]) 76830 EST. PATIENT, LEVEL IV Diagnosis: DIABETES TYPE II[SNOMED: 132693514] Diagnosis: ANXIETY STATE[ICD9: 300.00] Diagnosis: DEPRESSIVE DISORDER NEC[ICD9: 311] Diagnosis: Ulcer of toe[ICD9: 707.15] Tessie Motta MD, [facility] CPT- 4: 57270 10/24/2011 ([id number]) 97134 EST. PATIENT, LEVEL IV Diagnosis: EDEMA[ICD9: 782.3] Diagnosis: ESSENTIAL HYPERTENSION[SNOMED: 00534926] Diagnosis: ANXIETY STATE[ICD9: 300.00] Tessie Motta MD, [facility] CPT- 4: 20444 09/26/2011 69035 EST. PATIENT, LEVEL IV Diagnosis: EDEMA[ICD9: 782.3] Diagnosis: ESSENTIAL HYPERTENSION[SNOMED: 31100103] Rika Motta MD, [facility] CPT-4: 43201 09/20/2011 ([id number]) 73097 EST. PATIENT, LEVEL IV Diagnosis: ACUTE SINUSITIS[ICD9: 461.9] Diagnosis: Allergic rhinitis[ICD9: 477.9] Diagnosis: Cough[ICD9: 786.2] Tessie Motta MD, [facility] CPT-4: 04441 09/01/2011 ([id number]) 61687 EST. PATIENT, LEVEL IV Diagnosis: Chronic sinusitis[ICD9: 473.9] Diagnosis: Anxiety, generalized[ICD9: 300.02] Tessie Motta MD, [facility] CPT-4: 66164 08/15/2011 51407 EST. PATIENT, LEVEL IV Diagnosis: ACUTE SINUSITIS[ICD9: 461.9] Diagnosis: Tachycardia[ICD9: 785.0] Diagnosis: Anxiety[ICD9: 300.00] Diagnosis: Dehydration[ICD9: 276.51] Diagnosis: Sciatica[ICD9: 724.3] Tessie Motta MD, [facility] CPT-4: 17138 08/09/2011 43924 EST. PATIENT, LEVEL IV Diagnosis: DIABETES TYPE II[SNOMED: 418459514] Diagnosis: Sciatica[ICD9: 724.3] Diagnosis: Yeast infection[ICD9: 112.9] Tessie Motta MD, [facility] CPT- 4: 08285 08/01/2011 ([id number]) 31954 EST. PATIENT, LEVEL IV Diagnosis: DIABETES TYPE II[SNOMED: 290216216] Diagnosis: ACUTE MAXILLARY SINUSITIS[ICD9: 461.0] Diagnosis: Fibromyalgia[ICD9: 729.1] Tessie Motta MD, [facility] CPT-4: 44131 06/20/2011 31860 EST. PATIENT, LEVEL IV Diagnosis: ESSENTIAL HYPERTENSION[SNOMED: 18057241] Diagnosis: DIABETES TYPE II[SNOMED: 828000471] Diagnosis: ACUTE MAXILLARY SINUSITIS[ICD9: 461.0] Tessie Motta MD, [facility] CPT-4: 02050 04/18/2011 Plan of Care Planned Activity Notes [...] verbalized understanding. 04/27/2018 Appointment: Rika Bello WPtel: [phone] (30 min) Complex 04/27/2018 Patient Education: Patient Medication Summary Completed 04/27/2018 Appointment: Rika Bello WPtel: [phone] (15 min) Moderate 04/24/2018 Appointment: Nurse [...] and return Monday for removal of IPRO Fzrfoyv-xryehjwfpm-qp changes in medications-recommend counseling-patient refuses Weakness-patient is deconditioned-refuses PT -recommend patient start walking more 04/10/2018 Appointment: Rika Bello WPtel: [phone] [place] (15 min) Moderate 04/10/2018 Patient Education: Patient Medication Summary Completed 04/10/2018 Appointment: Arltete Skelton WPtel: [facility] [place] (15 min) Moderate 03/21/2018 Appointment: Rika Bello WPtel: [phone] [place] (30 min) Complex 03/20/2018 Visit Plan: Hypertension [...] directed 03/12/2018 Appointment: Rika Bello WPtel: [phone] [phone] (15 min) Moderate 03/12/2018 Patient Education: Patient Medication Summary Completed 03/12/2018 Patient Education: Back Pain Completed 03/12/2018 Appointment: Rika Bello WPtel: [phone] (30 min) Complex 03/08/2018 Appointment: Lab [...] refill 02/20/2018 Appointment: Rika Bello WPtel: [phone] [phone] [place] (15 min) Moderate 02/20/2018 Patient Education: Patient Medication Summary Completed 02/20/2018 Patient Education: Back Pain Completed 02/20/2018 Patient Education: Patient Medication Summary Completed 02/20/2018 Care Plan: Iron Pending 02/20/2018 Appointment: Rika Bello WPtel: [phone] [phone] [place] (30 min) Complex 02/19/2018 Appointment: Rika Bello WPtel: [phone] [phone] [place] (15 min) Moderate 02/01/2018 Visit Plan: UA negative -no culture indicated 12/14/2017 Appointment: Lab Draw 12/14/2017 Patient Education: Patient Medication Summary Completed 12/14/2017 Visit Plan: Dysuria-urinary incontinence-culture urine HTN- elevated today-monitor at home -follow up with rn bariatric 11/27/2017 Appointment: Rika Bello WPtel: [phone] [phone] [place] (15 min) Moderate 11/27/2017 Patient [...] Completed 10/27/2017 Care Plan: SCREENINGMAMMOGRAPHYDIGITAL LOINC : 89113-3 Pending 10/27/2017 Appointment: [phone] [facility] (15 min) Moderate 10/03/2017 Appointment: [phone] (15 min) Moderate 10/02/2017 Appointment: [phone] [phone] [place] (30 min) Complex 09/29/2017 Visit [...] acutely worsened. 09/27/2017 Appointment: [facility] [address] [facility] (30 min) Complex 09/27/2017 Patient Education: Patient Medication Summary Completed 09/27/2017 Care Plan: CT HEAD/BRAIN W/O DYE [facility] : 76332-0 Pending 09/27/2017 Visit Plan: DM-patient noncompliant with [...] over- medication. 09/15/2017 Appointment: Rika Bello WPtel: [phone] (30 min) Complex 09/15/2017 Patient Education: Patient Medication Summary Completed 09/15/2017 Appointment: Rika Bello WPtel: [phone] (30 min) Complex 09/12/2017 Appointment: Rika Bello WPtel: [phone] (30 min) Complex 09/07/2017 Visit Plan: Kph-rlvdefwjrc-jl changes Anemia-check cbc today Dental infection-on clindamycin per Dr Bryant-start probiotics Also needs to monitor blood sugars closely 08/18/2017 Appointment: Rika Bello WPtel: [phone] (30 min) Complex 08/18/2017 Patient Education: [...] not resolve 08/03/2017 Appointment: [phone] [phone] (30 min) Complex 08/03/2017 Patient Education: Patient [...] symptoms worsen 07/27/2017 Appointment: [phone] [phone] (30 min) Complex 07/27/2017 Patient [...] medications 06/13/2017 [phone] ([facility] Moderate 06/13/2017 Patient Education: Patient Medication Summary Completed 06/13/2017 Visit Plan: Dental abscess - will send RX - pt is to keep her appointment with her dentist - pt is to notify clinic if symptoms do not improve, if they worsen, or with any other acute changes, questions, or concerns. 04/21/2017 Appointment: [facility]el[phone] [facility] (30 min) Complex 04/21/2017 Patient Education: [...] Q HS RESCHEDULE APPT WITH DR YANNA HoAatsnwosg-ldffdqeac-ym for bactroban ointment provided and instructed on use RKU-momeumcfqy-nb change in medications Mildly elevated liver enzymes-discussed with Dr motta-suspect due to gabapentin-will monitor levels Gait instability-again recommend patient use walker as well as PT 04/18/2017 Appointment: Rika Bello WPtel: [phone] (30 min) Complex 04/18/2017 Patient Education: [...] become less controlled. Low potassium- check labs UGH-abqnrxrqmm-va changes Afib-check digoxin level with labs Abdominal [...] become less controlled. Low potassium- check labs OFT-ixtxtwinvw-yn changes Afib-check digoxin level with labs Abdominal pain-refill levsin for prn use -call if pain uncontrolled 03/27/2017 Appointment: Rika Bello WPtel: [address] [place], [place] [phone] (30 min) Complex 03/27/2017 Patient Education: Patient Medication Summary Completed 03/27/2017 Appointment: Rika Bello WPtel: [phone] (30 min) Complex 03/24/2017 Visit Plan: Hypertension - well controlled - continue with current medications, continue with no added salt diet. Pt has been encouraged to exercise daily. The pt has been advised to call the office if there are any acute concerns about change in blood pressure readings at home. DM-uncontrolled- discussed strict diet and exercise with patient Low asbreqrbx-euivdunm-zybjlbez to monitor Abd kgud-ckvjvbbj-yt changes 02/27/2017 Appointment: Rika Bello WPtel: [phone] [phone] (30 min) Complex 02/27/2017 Patient Education: Patient [...] this regimen. 02/21/2017 Appointment: Rika Bello WPtel: [phone] [phone] [place] (30 min) Complex 02/21/2017 Patient Education: Patient Medication Summary Completed 02/21/2017 Appointment: Rika Bello WPtel: [phone] [phone] (30 min) Complex 02/20/2017 Visit Plan: [...] labs on Monday02/17/2017 Appointment: Rika Bello WPtel: [phone] [phone] (30 min) Complex 02/17/2017 Patient Education: Patient Medication Summary Completed 02/17/2017 Visit Plan: COPD-recent hospitalization with pneumonia- symptoms improved-discussed continuous oxygen use at home-appt with Dr Odonnell tomorrow Afib-check digoxin level-patient just finished zpack Diarrhea-continue probiotics-check stool if diarrhea persists DM-bring log to next appt 02/13/2017 Appointment: Rika Bello WPtel: [phone] (30 min) Complex 02/13/2017 Patient Education: Patient Medication Summary Completed 02/13/2017 Patient Education: Hypertension Completed 02/13/2017 Visit Plan: DM-very uncontrolled-refer to Dr Raines for management RIght shoulder and arm pain-fell 5 days ago-xray shoulder and arm Chronic sinusitis-RX for Dr Cervantes's compound gentamicin nasal spray 01/30/2017 Appointment: Rika Bello WPtel: [phone] (30 min) Complex 01/30/2017 Patient Education: Patient Medication Summary Completed 01/30/2017 Care Plan: Referral Order SNOMED-CT : [id number] Pending 01/30/2017 Visit Plan: Hypertension - well [...] every night DM-check Hgb A1C Hypothyroidism-check level Abmfirz-wceqdcdtga-hxu well controlled- increase cymbalta-recommend counseling 01/16/2017 Appointment: Rika Bello WPtel: [phone] [phone] (30 min) Complex 01/16/2017 Patient Education: Patient Medication Summary Completed 01/16/2017 Appointment: Rika Bello WPtel: [phone] [phone] (30 min) Complex 01/10/2017 Visit Plan: [...] or concerns. 12/13/2016 [phone] (30 min[facility] 12/13/2016 Patient [...] completely heal. 11/11/2016 Appointment: Rika Bello WPtel: [phone] [phone] (30 min) Complex 11/11/2016 Patient Education: Patient Medication Summary Completed 11/11/2016 Care Plan: BMI Above normal followup SELF-MGMT EDUC & TRAIN 1 PT Pending 2016 Appointment: Rika Bello WPtel: [phone] [place] (30 min) Complex 11/08/2016 Visit Plan: Shingles-rash scabbed-no further treatment indicated-patient to call if pain uncontrolled N/V-check labs including UA DM- check labs today Thrush-RX for nystatin 10/28/2016 Appointment: Rika Bello WPtel: [phone] [phone] [place] (30 min) Complex 10/28/2016 Patient Education: Patient Medication Summary Completed 10/28/2016 Patient Education: Obesity Completed 10/28/2016 Appointment: Rika Bello WPtel: [facility]8 [phone] [place] (30 min) Complex 10/25/2016 Appointment: Lab Draw 10/21/2016 Patient Education: Patient Medication Summary Completed 10/21/2016 Visit Plan: Right knee pain-patient to schedule appt with Dr Allison Garcia-right arm-concerned for shingles-RX for acyclovir provided and instructed on use-call if symptoms do not resolve or if any worse. 10/13/2016 Appointment: Rika Bello WPtel: [phone] [phone] [place] (30 min) Complex 10/13/2016 Patient Education: Patient Medication Summary Completed 10/13/2016 Appointment: Rika Bello WPtel: [phone] [phone] (30 min) Complex 10/11/2016 Appointment: Rika Bello WPtel: [address] [place], [place] [phone] [facility] - Annual Wellness Visit 10/04/2016 [...] as directed. 09/23/2016 Appointment: Rika Bello WPtel: [address] [place], [place] [phone] (15 min) Moderate 09/23/2016 Patient Education: Patient [...] 09/13/2016 Care Plan: Referral Order SNOMED-CT : 565558896 Pending 09/13/2016 Appointment: Rika Bello WPtel: [address] [facility] [place] [address] (30 min) Complex 09/09/2016 Appointment: Rika Bello WPtel: [address] [facility] [place] [address] (30 min) Complex 09/08/2016 Visit Plan: Hypertension [...] Anemia-check CBC 08/09/2016 Appointment: Rika Bello WPtel: [facility]0 [facility] [place] [address] (30 min) Complex 08/09/2016 Patient Education: Patient [...] control. Yeast infection -rx for nystatin powder UKOW-cdszgafxv-vowskk pneumonia -afib-patient is oxygen dependent due to severely compromised pulmonary and cardiac systems-will send orders to [facility] to continue oxygen 07/26/2016 Visit [...] control. Yeast infection -rx for nystatin powder LTVY-dhhjvvmdc-wdjqzz pneumonia -afib-patient is oxygen dependent due to severely compromised pulmonary and cardiac systems-will send orders to [facility] to continue oxygen 07/26/2016 Visit [...] control. Yeast infection -rx for nystatin powder XTYI-nqmteoudm-sxhkho pneumonia -afib-patient is oxygen dependent due to severely compromised pulmonary and cardiac systems-will send orders to [facility] to continue oxygen 07/26/2016 Appointment: [facility]el[phone] [place] (30 min) Complex 07/26/2016 Patient Education: Patient Medication Summary Completed 07/26/2016 Appointment: [phone] [place] (30 min) Complex 07/22/2016 Appointment: [facility]el[phone] [place] (30 min) Complex 07/18/2016 Appointment: [facility]el[phone] [place] (30 min) Complex 07/01/2016 Appointment: Lab Draw 06/24/2016 Patient Education: Patient Medication Summary Completed 06/24/2016 Appointment: [facility]ello [facility]Ptel[phone] [place] (30 min) Complex 2016 [...] Obesity Completed 05/24/2016 Appointment: Rika Bello WPtel: [phone] (30 min) Complex 05/17/2016 Visit Plan: [...] glucose control. 04/19/2016 Appointment: Rika Bello WPtel: [facility]6 [phone] (30 min) Complex 04/19/2016 Patient Education: Patient Medication Summary Completed 04/19/2016 Patient Education: Obesity Completed 04/19/2016 Appointment: Rika Bello WPtel: [phone] [phone] (30 min) Complex 04/18/2016 Visit Plan: Diabetes [...] to allow for greater blood glucose control. WFZ-nperkgkhhd-sp changes in medications at this time. Dysuria-UA negative-needs pelvic exam due to pt c/o vaginal discharge 04/11/2016 Appointment: Rika Bello WPtel: [phone] [phone] (30 min) Complex 04/11/2016 Patient Education: Patient Medication Summary Completed 04/11/2016 Patient Education: Obesity Completed 04/11/2016 Appointment: Rika Bello WPtel: [phone] [phone] (30 min) Complex 04/08/2016 Visit Plan: Chronic [...] peripheral edema. 03/11/2016 Appointment: Rika Bello WPtel: [address] [place], [place] [phone] (30 min) [facility] 03/11/2016 Patient Education: Patient Medication Summary [...] on use 02/26/2016 Appointment: Rika Bello WPtel: [facility]5 [phone] (30 min) Complex 02/26/2016 Patient Education: Patient Medication Summary Completed 02/26/2016 Appointment: Rika Bello WPtel: [facility]6 [phone] [place] (30 min) Complex 02/25/2016 Appointment: Rika Bello WPtel: [facility]5 [phone] (30 min) Complex 02/23/2016 Appointment: Lab [...] to mold 02/02/2016 Appointment: Rika Bello WPtel: [address] [place], [place] [phone] (30 min) Complex 02/02/2016 Patient Education: Patient Medication Summary Completed 02/02/2016 Appointment: Tessie Motta WPtel: [facility]7 [facility] (15 min) Moderate 01/21/2016 Appointment: Rika Bello WPtel: [address] [place], [place] [phone] [place] (30 min) Complex 01/14/2016 Visit Plan: [...] Patient Medication Summary Completed 12/17/2015 Visit Plan: Krowpuv-ilroasqkj-bjoi head injury on 12/05-did not go to ER-patient sent for STAT CT scan of head-schedule appt with Dr Dyer Adrenal insufficiency-patient suddenly stopped prednisone-instructed patient to restart and taper prednisone as directed Rib fmar-bmjwn-tfyjba fall-xray ribs 12/08/2015 Appointment: [phone] [place] (15 min) Moderate 12/08/2015 Appointment: [facility]Ptel[phone] [place] (30 min) Complex 12/08/2015 Patient Education: Patient Medication Summary Completed 12/08/2015 Care Plan: COMPLETE CBC AUTOMATED LOINC : 86579-8 Pending 12/08/2015 Visit Plan: Hypertension - well [...] pt was given a script for a shelter prednisone taper - pt has not started [...] Dr. Mejia 10/27/2015 Appointment: Rika Bello WPtel: [phone] [phone] (30 min) Complex 10/27/2015 Patient Education: Patient Medication Summary Completed 10/27/2015 Patient Education: Obesity Completed 10/27/2015 Care Plan: Referral Order SNOMED-CT : [id number] Pending 10/27/2015 Referral: [facility]:[phone] [facility] Ref[facility] Initiated 10/21/2015 Visit Plan: Medicare Exam [...] stomach pain. 09/29/2015 Appointment: [facility]Ptel[phone] [facility] - Welcome to Medicare visit 09/29/2015 Patient Education: Patient Medication Summary Completed 09/29/2015 Patient Education: Obesity Completed 09/29/2015 Care Plan: Referral Order SNOMED-CT : [id number] Pending 09/29/2015 Care Plan: BMI Above normal [...] min) Complex 05/05/2015 Appointment: Rika Bello WPtel: [address] [place] [phone] (30 min) Complex 04/27/2015 Visit Plan: Cellulitis [...] Hypertension Completed 03/03/2015 Appointment: Rika Bello WPtel: [facility] (30 min) Complex 02/24/2015 Appointment: (30 min) Complex 01/29/2015 Appointment: Tessie Motta WPtel: [facility] (15 min) Moderate 01/22/2015 Visit Plan: Blister of right lower leg-fluids removed with #27 gauze needle and compression dressing applied-refer to wound care for evaluation and management-patient is at high risk of developing large ulcer due to diabetes, noncompliance and poor hygiene. Rash right leg-start oral abx and bactroban as directed Cdhcd-tugzdilkseyk-urb markie wraps, elevate leg, and again instructed [...] eating out. 01/01/2015 Appointment: [facility]el[phone] (15 min) Moderate 01/01/2015 Patient [...] Care Plan: COMPLETE CBC AUTOMATED LOINC : 78806-3 Ordered 11/04/2014 Care Plan: URINALYSIS NONAUTO W/O SCOPE LOINC : 70735-5 Ordered 11/04/2014 Appointment: Follow up 10/07/2014 Visit Plan: Edema - pt has been advised to elevate legs to prevent dependent edema, compression has been recommended to help to naturally decrease peripheral edema. Diuretic use has been discussed and pt has been instructed in appropriate use of such medication as necessary to further attempt to reduce peripheral edema. Ouklmosuui-ntbomojo-hb change in treatment- continue compression hose-decrease salt/sodium in diet-call if symptoms worsen or do not resolve Csgwmbolh-zrhbdwu-qaacgkus nasonex to twice daily as directed 09/08/2014 [...] they worsen. 06/12/2014 Appointment: Rika Bello WPtel: [address] [place] [phone] Follow up 06/12/2014 Patient Education: Patient Medication Summary Completed 06/12/2014 Patient Education: .Amazing charts Exercise for Sciatica Completed 06/12/2014 Care Plan: COMPLETE CBC AUTOMATED LOINC : 92910-0 Ordered 06/12/2014 Visit Plan: Cellulitis - continue [...] Completed 05/26/2014 Appointment: [facility]ta [facility]el[phone] [place] Lab Draw 04/21/2014 Patient Education: Patient Medication [...] home. 02/13/2014 Appointment: Tess[facility] Motta [facility]Ptel[phone] Follow up 02/13/2014 Patient Education: [...] daily. 01/27/2014 Appointment: Tess[facility] Motta [facility]Ptel[phone] Follow up 01/27/2014 Patient Education: Patient Medication Summary Completed 01/27/2014 Appointment: Rika Bello WPtel: [facility]5 [phone] Follow up 01/02/2014 Visit Plan: Open wound of abc-zhioctbj-jzgcmxrp with dressing changes as directed-call for increase [...] Summary Completed 12/26/2013 Appointment: Tessie Motta WPtel: [facility]5 [facility] Follow up 12/24/2013 Visit Plan: Open wound of right leg-debrided today in the office-instructed on wound care-follow up as directed. Call with any questions, concerns, or worsening symptoms. Culture of wound today in the office-RX for abx sent to patient's pharmacy and instructed on use. Patient verbalized understanding of plan. 12/12/2013 Appointment: Rika Bello WPtel: [facility]5 [phone] Other 12/12/2013 Patient Education: Patient Medication Summary Completed 12/12/2013 Appointment: Tessie Motta WPtel: [facility]5 [facility] Follow up 11/20/2013 Visit Plan: negative ua 11/18/2013 Appointment: Tessie Motta WPtel: [facility]5 [facility] Lab Draw 11/18/2013 Patient Education: Patient Medication [...] Completed 11/14/2013 Visit Plan: Open wound right lwh-aatpke-fsfn if opens up Edema - pt has been advised to elevate legs to prevent dependent edema, compression has been recommended to help to naturally decrease peripheral edema. Diuretic use has been discussed and pt has been instructed in appropriate use of such medication as necessary to further attempt to reduce peripheral edema. 10/21/2013 Appointment: Rika Bello WPtel: [address] [place], [place] [phone] [place] [address] Follow up 10/21/2013 Patient Education: Patient Medication Summary Completed 10/21/2013 Appointment: Rika Bello WPtel: [address] [place], [place] [phone] [place] [address] Follow up 10/17/2013 Appointment: Tessie Motta WPtel: [address] [place], [place] [phone] Follow up 10/10/2013 Visit Plan: Hypertension - [...] for pain. 10/03/2013 Appointment: Rika Bello WPtel: [address] [place], [place] [phone] Follow up 10/03/2013 Patient Education: Patient Medication [...] plan. 09/23/2013 Appointment: [facility]ta [facility]Ptel[phone] [place] [facility] 09/23/2013 Patient [...] 2 WEEKS. 09/20/2013 Appointment: [facility]Ptel: [phone] [place] Follow up 09/20/2013 Patient Education: Patient Medication Summary Completed 09/20/2013 Patient Education: Hypertension Completed 09/20/2013 Appointment: Tessie Motta WPtel: [address] [place], [place] [phone] Follow up 09/16/2013 Visit Plan: Edema - [...] verbalized understanding. 09/10/2013 Appointment: Rika Bello WPtel: [facility] [address] Other 09/10/2013 Patient Education: Patient Medication Summary Completed 09/10/2013 Appointment: Rika Bello WPtel: [address] [place] [address] Follow up 09/02/2013 Visit Plan: Diabetes Mellitus [...] peripheral edema. 08/19/2013 Appointment: Rika Bello WPtel: [facility]7 [phone] Other 08/19/2013 Patient Education: Patient Medication Summary [...] scheduled 08/01/2013 Appointment: [facility]Ptel: [phone] [place] Follow up 08/01/2013 Patient Education: Patient Medication Summary Completed 08/01/2013 Appointment: Rika [facility]ello [facility]Ptel: [phone] [place] Follow up 07/25/2013 Appointment: Tessie Motta WPtel: [address] [place], [place] [phone] Follow up 07/25/2013 Visit Plan: Bister of foot-dressing changes discussed with patient and instructed her to keep her foot clean and dry-STOP WEARING FLIP FLOPS as they are causing friction over blistered area. Keep follow up appointment as scheduled. Call for redness, drainage or other s/s of infection. 07/19/2013 Appointment: Rika Bello WPtel: [address] [place] [address] Other 07/19/2013 Patient Education: Patient Medication Summary [...] peripheral edema. 07/15/2013 Appointment: Rika Bello WPtel: [address] [place] [address] Other 07/15/2013 Patient Education: Patient Medication Summary Completed 07/15/2013 Patient Education: Hypertension Completed 07/15/2013 Appointment: Rika Bello WPtel: [address] [place], [place] [phone] Follow up 07/01/2013 Appointment: Rika Bello WPtel: [address] [place], [place] [phone] [place] Lab Draw 06/28/2013 Patient Education: Patient [...] 900mg tid. 06/27/2013 Appointment: Tessie Motta WPtel: [phone] [facility] Other 06/27/2013 Patient Education: Patient Medication Summary Completed 06/27/2013 Appointment: Tessie Motta WPtel: [phone] [facility] Other 06/24/2013 Visit Plan: Diabetes Mellitus - [...] THE AFTERNOON. 06/10/2013 Appointment: Tessie Motta WPtel: [address] [place], [place] [phone] Follow up 06/10/2013 Patient Education: Patient Medication Summary Completed 06/10/2013 Appointment: Tessie Motta WPtel: [facility]5 [facility] Follow up 06/06/2013 Visit Plan: Sinusitis - [...] acutely worsen. 05/07/2013 Appointment: Tessie Motta WPtel: [address] [place], [place] [phone] Follow up 05/07/2013 Patient Education: Patient Medication Summary Completed 05/07/2013 Appointment: Tessie Motta WPtel: [address] [place], [place] [phone] Follow up 04/30/2013 Visit Plan: Edema - [...] acute changes. 04/16/2013 Appointment: Tessie Motta WPtel: [address] [place], [place] [phone] Follow up 04/16/2013 Patient Education: Patient Medication Summary Completed 04/16/2013 Appointment: Tessie Motta WPtel: [address] [place], [place] [phone] Follow up 04/04/2013 Visit Plan: Lumbago-continue physical [...] attempt to reduce peripheral edema. 03/21/2013 Appointment: Rkia Bello WPtel: [facility]5 [phone] Follow up 03/21/2013 Patient Education: Patient Medication Summary Completed 03/21/2013 Appointment: Tessie Motta WPtel: [address] [place], [place] [phone] [place] Follow up 03/20/2013 Appointment: Tessie Motta WPtel: [address] [place] [phone] [place] Follow up 03/05/2013 Visit Plan: Edema-significantly [...] less controlled. 02/12/2013 Appointment: Rika Bello WPtel: [address] [place], [place] [phone] [place] [address] follow up 02/12/2013 Patient Education: Patient Medication [...] Dyspnea - recommended pt to see new tool programmer when he gets to [facility] for further evaluation and work-up. 02/04/2013 Appointment: Tessie Motta WPtel: [address] [place] [address] Follow up 02/04/2013 Patient Education: Patient Medication [...] not improve. 01/17/2013 Appointment: Rika Bello WPtel: [address] [place], [place] [phone] Follow up 01/17/2013 Patient Education: Patient Medication Summary Completed 01/17/2013 Patient Education: Hypertension Completed 01/17/2013 Appointment: Tessie Motta WPtel: [address] [place], [place] [phone] Follow up 01/16/2013 Appointment: Tessie Motta WPtel: [address] [place], [place] [phone] Follow up 01/10/2013 Appointment: Rika Bello WPtel: [address] [place], [place] [phone] Lab Draw 01/01/2013 Patient Education: Patient Medication [...] Hypothyroidism-check labs 12/31/2012 Appointment: Rika Bello WPtel: [address] [place], [place] [phone] Follow up 12/31/2012 Appointment: Rika Bello WPtel: [address] [place], [place] [phone] [facility] 12/31/2012 Patient Education: Patient Medication Summary Completed [...] Check labs. 12/20/2012 Appointment: Rika Bello WPtel: [facility]0 [phone] Sick 12/20/2012 Patient Education: Patient Medication Summary Completed 12/20/2012 Patient Education: Hypertension Completed 12/20/2012 Appointment: Tessie Motta WPtel: [address] [place] [address] Lab Draw 11/05/2012 Patient Education: Patient Medication Summary Completed 11/05/2012 Visit Plan: Bronchitis - acute case of bronchitis identified. Pt has been given antibiotics, breathing treatments as appropriate, and pt has been instructed to call if symptoms are not improved, or if symptoms acutely worsen. 10/29/2012 Appointment: Tessie Motta WPtel: [address] [place], [place] [phone] Sick 10/29/2012 Patient Education: Patient Medication Summary Completed 10/29/2012 Visit Plan: Joint Injection-left SI joint - Pt was given post - injection instructions. The pt has been advised to use antiinflammatories post injection today, ice to the injected site, call if redness, warmth, or increased pain occurs at the site of injection. 09/21/2012 Appointment: Rika Bello WPtel: [facility]6 [phone] Follow up 09/21/2012 Patient Education: Patient [...] control. 09/06/2012 Appointment: [facility]ta [facility]el[facility] Follow [facility] 09/06/2012 Patient Education: Patient Medication [...] readings are starting to become less controlled. Cfdlnqxe-mrdqogtp-fpwotqma probiotic-continue to hold metformin and repeat labs before appt in 2 weeks. Call for abd pain, worsening diarrhea, or other concerns. 08/23/2012 Appointment: [facility] Follow [facility] 08/23/2012 Patient Education: Patient Medication [...] PLAN. 08/13/2012 Appointment: Rika Bello WPtel: [address] [place] [phone] Follow up 08/13/2012 Patient Education: Patient Medication [...] Appointment: Rika Bello WPtel: 1015 [phone] [place] Other 08/07/2012 Patient Education: Patient Medication Summary Completed 08/07/2012 Patient Education: Hypertension Completed 08/07/2012 Visit Plan: UA-sent for culture 07/19/2012 Appointment: Rika Bello WPtel: [facility]5 [phone] Lab Draw 07/19/2012 Patient Education: Patient Medication [...] Appointment: Rika Bello WPtel: 101[address] [phone] [facility] 07/06/2012 Patient Education: Patient Medication Summary [...] given today 06/07/2012 Appointment: Tessie Motta WPtel: [facility]6 [facility] Follow up 06/07/2012 Appointment: Tessie Motta WPtel: [facility] Follow up 06/07/2012 Patient Education: Patient Medication [...] 10 days. 05/28/2012 Appointment: [facility]Ptel[phone] Follow up 05/28/2012 Patient Education: [...] edema. 05/17/2012 Appointment: Rika [facility]ello WPtel[phone] [facility] Follow UP 05/17/2012 Patient Education: Patient Medication [...] the office 05/02/2012 Appointment: Tessie Motta WPtel: [facility] Follow up 05/02/2012 Patient Education: Patient Medication Summary Completed 05/02/2012 Patient Education: Hypertension Completed 05/02/2012 Appointment: Tessie Motta WPtel: [facility] Follow up 04/25/2012 Visit Plan: Sinusitis - [...] concerns. 04/10/2012 Appointment: Rika [facility]ello [facility]Ptel: [phone] Follow up 04/10/2012 Patient Education: Patient [...] on Monday02/27/2012 Appointment: Rika [facility]ello [facility]Ptel: [phone] Follow up 02/27/2012 Patient Education: Patient Medication [...] to thighs. 02/15/2012 Appointment: Rika Bello WPtel: [address] [facility] [place] [address] Follow up 02/15/2012 Patient Education: Patient Medication [...] toes to thighs. RX sent to patient's [facility]. Chest xray at the hospital as [...] urine. 02/01/2012 Appointment: Rika Bello WPtel: 1015 [phone] Other 02/01/2012 Patient Education: Patient Medication [...] left buttocks 12/14/2011 Appointment: Tessie Motta WPtel: [facility] Other 12/14/2011 Patient Education: Patient Medication Summary Completed 12/14/2011 Appointment: Tessie Motta WPtel: [address] [place], [place] [phone] Follow up 12/08/2011 Visit Plan: N/V/D - [...] less controlled. 11/30/2011 Appointment: R[facility]ello [facility]Ptel: [phone] Other 11/30/2011 Patient Education: Patient Medication [...] Motta WPtel: 1015 [facility] Other 11/17/2011 Patient Education: Patient Medication Summary [...] - uncontrolled - will consult her primary rn bariatric for assistance with control her her heart rate. Ulcer of toe - continue with topical antibiotics as previously directed, return to clinic as previously directed, call for acute change in symptoms, worsening redness, warmth, discharge. 11/03/2011 [phone] [facility] 11/03/2011 Patient Education: Patient Medication Summary [...] discharge. 10/24/2011 Appointment: Tessie Motta WPtel: [phone] [facility] [place] Other 10/24/2011 Patient Education: Patient Medication [...] lymphoma. 09/26/2011 [phone] [place] Other 09/26/2011 Patient Education: [...] Hypertension Completed 2011 Appointment: Tessie Motta WPtel: [address] [place] [address] Other 09/05/2011 Visit Plan: Sinusitis - Pt [...] the medication. 09/01/2011 Appointment: Tessie Motta WPtel: [address] [place] [address] Other 09/01/2011 Patient Education: Patient Medication Summary Completed 09/01/2011 Visit Plan: Sinusitis - continue with ciprofloxacin and start on corcidin HBP. Anxiety - start the xanax 0.5mg 1/2 pill twice daily. 08/15/2011 Appointment: Tessie Motta WPtel: [address] [place] [address] Other 08/15/2011 Appointment: Tessie Motta WPtel: [address] [place] [address] Other 08/15/2011 Patient Education: Patient Medication Summary [...] the hospital. 08/09/2011 Appointment: Rika Bello WPtel: [address] [place] [address] Other 08/09/2011 Patient Education: Patient Medication Summary [...] not resolve 08/01/2011 Appointment: Rika Bello WPtel: [facility] [place] [phone] [place] Other 08/01/2011 Patient Education: Patient Medication Summary Completed 08/01/2011 Appointment: Ace Rika WPtel: [phone] [phone] [place] Other 07/26/2011 Appointment: Tessie Motta WPtel: [phone] [facility] Other 07/18/2011 Visit Plan: Diabetes Mellitus - [...] management sparingly. 06/20/2011 Appointment: Kalia Tessie WPtel: [facility] [place] Other 06/20/2011 Patient Education: Patient Medication [...] 1 month. 04/18/2011 Appointment: Tessie Motta WPtel: [address] [place] [address] Other 04/18/2011 Patient Education: Patient Medication Summary Completed 04/18/2011 Patient Education: High Blood Pressure: Essential Hypertension Completed 2010 Appointment: Tessie Motta WPtel: [address] [place] [address] Other 04/12/2011 Appointment: Tessie Motta WPtel: [address] [place] [address] Other 02/16/2011 Referral: Matt Pavon HPtel:[phone] Referral Initiated Referral: Yareli Raines Referral Appointment Requested Referral: Raul Shelley Referral Appointment Requested Referral: Mimi Mejia Referral Initiated Instructions Comment . Diabetes Mellitus - controlled - per [...] drainage or other s/s of infection. . Cellulitis - culture of wound today [...] to further attempt to reduce peripheral edema. TOUJEO 40 units BID Novolg 10 units [...] blood glucose levels pneumovac given today . Diabetes Mellitus - controlled - per [...] id annabel to her chronic back pain. Labs and UA . Hypertension - well [...] as needed #60 with next refill . Cellulitis - continue with oral antibiotics as previously directed, return to clinic as previously directed, call for acute change in symptoms, worsening redness, warmth, discharge. Xutregvb-ujiivcnrjgzb-ukwma labs today-patient has been given orders multiple [...] days. Trigger point injection to left buttocks INCREASE LEVEMIR TO 25 UNITS TWICE DAILY-IF [...] toenail - will refer to Dr. Mejia Compression hose-RX provided Labs today Lasix and [...] in blood pressure readings at home. . Sinusitis - Pt has acute infection [...] change in blood pressure readings at home. GG-ztnayfyzhdbc-lvxvjzkcf strict diet and exercise with patient Low zhkdfoesd-lmaqjutv-tsvylqlp to monitor Abd viky-tmzvqthw-ih changes FOR CHOLESTEROL - THE NEW DOSE [...] based on previous levels of control. . Ugi-adtqevdqro-xg changes Anemia-check cbc today Dental infection-on clindamycin per Dr Bryant-start probiotics Also needs to monitor blood sugars closely INCREASE WATER INTAKE AND PROTEIN INTAKE CUT [...] MORNING AND 20MG IN THE AFTERNOON. . Dental abscess - will send RX - pt is to keep her appointment with her dentist - pt is to notify clinic if symptoms do not improve , if they worsen, or with any other acute changes, questions, or concerns. . UA-sent for culture . Hypertension - [...] readings are starting to become less controlled. Fcvxcazk-bvfqjics-isjajqcl probiotic-continue to hold metformin and repeat labs before appt in 2 weeks. Call for abd pain, worsening diarrhea, or other concerns. WOUND CARE EVALUATION KEEP BLISTER CLEAN AND [...] leg-start oral abx and bactroban as directed Fklsj-rhvobyexywig-jyu markie wraps, elevate leg, and again instructed [...] symptoms are not controlled with the medication. Toprol XL increased to 100mg po q [...] to further attempt to reduce peripheral edema. check UA . Dysuria-urinary incontinence-culture urine HTN-elevated today-monitor at home -follow up with rn bariatric . Open wound of uvm-qwjfttiq-zfevthbr with dressing changes as directed-call for increase [...] further attempt to reduce peripheral edema. . Joint Injection-left SI joint - Pt [...] pain control and symptom management sparingly. . Diabetes Mellitus - controlled - per [...] if symptoms do not show improvement. . Open wound right jkd-pzxtkt-mphk if opens up Edema - pt has been advised to elevate legs to prevent dependent edema, compression has been recommended to help to naturally decrease peripheral edema. Diuretic use has been discussed and pt has been instructed in appropriate use of such medication as necessary to further attempt to reduce peripheral edema. . Rgcohcv-bnymagaby-ryjc head injury on 12/05-did not go to ER-patient sent for STAT CT scan of head-schedule appt with Dr Dyer Adrenal insufficiency-patient suddenly stopped prednisone-instructed patient to restart and taper prednisone as directed Rib ysaf-wfwxb-iuvwjb fall-xray ribs START CHECKING BLOOD SUGARS!!!! BRING [...] RTC in one month for weight check. INCREASE LEVEMIR TO 20 UNITS IN THE [...] to allow for greater blood glucose control. BTQ-zuayeorlkn-bj changes in medications at this time. Dysuria-UA [...] - uncontrolled - will consult her primary rn bariatric for assistance with control her her heart [...] with results.Patient and verbalized understanding of plan. XAD-bmetsehjyny-xbrtz labs-monitor blood pressure and heart rate closely- [...] a prescription for cipro and flagyl to [facility]. Start it today. . Sinusitis - [...] for diflucan-call if symptoms do not resolve [place] balm over the counter for the knee. [...] to further attempt to reduce peripheral edema. Mdvkdhrpuc-bjefaipp-pa change in treatment-continue compression hose-decrease salt/sodium in diet-call if symptoms worsen or do not resolve Drjdowbis-keytlcg-gognvnmg nasonex to twice daily as directed pt [...] 1.8 units daily. . Diabetes Mellitus - controlled - per [...] of right great toe-refer to wound care mammogram appt with Dr Pavon for colonscopy [...] pt was given a script for a shelter prednisone taper - pt has not started [...] verbalized understanding of plan. . negative ua Lactobacillus 1 po twice daily. Check labs [...] persists DM-bring log to next appt . Chronic sinusitis-rx for gentamicin nasal spray [...] to clinic if symptoms do not resolve . Hypertension - well controlled - continue [...] is stable, monitor for acute changes. . Blister of right leg-drained today in [...] WE WILL CALL HER WITH THE RESULTS. CHECK CMP TODAY . Edema - pt [...] next appointment for review. Patient verbalized understanding. . UA negative -no culture indicated . [...] Q HS RESCHEDULE APPT WITH DR YANNA HoQjfkaqkjs-atjpnujbe-pa for bactroban ointment provided and instructed on use DJN-dletkdcdod-zz change in medications Mildly elevated liver enzymes-discussed [...] times Pain uncontrolled-change to percocet as directed. . Edema - pt has been advised to elevate legs to prevent dependent edema, compression has been recommended to help to naturally decrease peripheral edema. Diuretic use has been discussed and pt has been instructed in appropriate use of such medication as necessary to further attempt to reduce peripheral edema. Dyspnea - recommended pt to see new tool programmer when he gets to [facility] for further evaluation and work-up. refer to Dr Raines increase levemir to 50 units in the morning and 45 at bedtime x 1 week then 50units BID . DM-very uncontrolled-refer to Dr Raines for management RIght shoulder and arm pain-fell 5 days ago-xray shoulder and arm Chronic sinusitis-RX for Dr Lius compound gentamicin nasal spray . Edema - [...] do not improve or if they worsen. . Hypertension - well controlled - continue [...] 1 week, sooner if symptoms worsen . Diabetes Mellitus - Uncontrolled - per [...] to further attempt to reduce peripheral edema. pt is to take lasix 40mg in [...] a prescription for lasix and potassium to [facility]. Take 2 TABLETS of LASIX and [...] toes to thighs. RX sent to patient's [facility]. Chest xray at the hospital as [...] control. 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 Diabetes [...] control. 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 Diabetes [...] control. 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 Diabetes [...] the office- follow up in 10 days. the dose on 01/01/15 PM - take [...] monitor FSBS at home, decrease eating out. Take lasix daily x 5 days Take [...] and return Monday for removal of IPRO Lkcpadw-vfrjneovwm-ro changes in medications-recommend counseling-patient refuses Weakness-patient is [...] your appt with her -she is a rac specialist . Diabetes Mellitus - ucontrolled- I [...] to become less controlled. Low potassium-check labs GRD-ejzpfqryyb-ip changes Afib-check digoxin level with labs Abdominal pain-refill levsin for prn use -call if pain uncontrolled DR Yareli Raines-you need to reschedule your appt with her -she is a rac specialist . Diabetes Mellitus - ucontrolled- I [...] to become less controlled. Low potassium-check labs SNF-aeqilfrxtd-bf changes Afib-check digoxin level with labs Abdominal [...] PAIN MANAGEMENT FOR INJECTIONS STOP BY [facility] FOR NEW CPAP SUPPLIES . Hypertension - [...] every night DM-check Hgb A1C Hypothyroidism-check level Zekfoqs-ixjzaqmwcg-ohe well controlled-increase cymbalta-recommend counseling . Diabetes Mellitus [...] she needs to...RESCHEDULE APPT WITH DR RAINES RAS-zlcveizhsq-gd change in medications CPAP NEBULIZER CHECK UA [...]
[2018-06-04 13:54] VITALS: BP 184/83
--- OUTSIDE RECORDS SUMMARY | 2018-06-04 14:06 | XMS REPORT | CCD ---
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 Unknown Has never used illegal drugs 02/11/2011 Allergies, Adverse Reactions, Alerts Substance Reaction Codes Entered Date Inactivated Date Status CODEINE RxNorm: 2670 02/11/2011 No Inactive Date Active * NO KNOWN FOOD ALLERGIES Unknown 02/01/2012 No Inactive Date Active cefdinir RxNorm: 30404 08/07/2012 No Inactive Date Active PENICILLINS Unknown [...] Start Date Stop Date Status Fill Instructions Tessalon Perles 100 mg capsule RxNorm: 791323 Capsule(s) Capsule(s) 2 Capsule(s) PO TID as needed 05/03/2018 No Stop Date Active Percocet 10 mg-325 mg tablet RxNorm: 9409123 1-2 Tablet(s) PO Q6 PRN 05/03/2018 05/17/2018 Active FreeStyle Test strips RxNorm: USE ONE STRIP TO CHECK GLUCOSE 4 TIMES DAILY 04/30/2018 No Stop Date Active promethazine 25 mg tablet RxNorm: 659194 Tablet(s) 1 Tablet(s) PO Q6 PRN TAKE NEEDED ONLY!!! 04/27/2018 No Stop Date Active digoxin 125 mcg tablet RxNorm: 750180 TAKE 1 TABLET BY MOUTH ONCE DAILY 04/23/2018 No Stop Date Active Lasix 40 mg tablet RxNorm: 017595 TAKE 1 TABLET BY MOUTH TWICE DAILY 04/19/2018 No Stop Date Active Vitamin D2 50,000 unit capsule RxNorm: 5430015 1 Capsule(s) PO QW 04/17/2018 06/15/2018 Active Tessalon Perles 100 mg capsule RxNorm: 809457 Capsule(s) Capsule(s) 2 Capsule(s) PO TID as needed 04/17/2018 05/02/2018 Inactive Xanax 0.5 mg tablet RxNorm: 007258 1 Tablet(s) BID as needed 04/09/2018 05/08/2018 Active Percocet 10 mg-325 mg tablet RxNorm: 9918650 1-2 Tablet(s) PO Q6 PRN 04/05/2018 04/19/2018 Inactive colestipol 1 gram tablet RxNorm: 1763455 TAKE ONE TABLET BY MOUTH TWICE DAILY 03/30/2018 No Stop Date Active nystatin 100,000 unit/mL oral suspension RxNorm: 760052 Unit(s) 5 Milliliter(s) PO QID swish and swallow 03/21/20182017 Inactive Tessalon Perles 100 mg capsule RxNorm: 463710 Capsule(s) Capsule(s) 2 Capsule(s) PO TID as needed 03/21/2018 04/16/2018 Inactive Xanax 0.5 mg tablet RxNorm: 726084 Tablet(s) BID as needed 04/09/2018 Inactive Slow Fe 47.5 mg iron tablet,extended release RxNorm: 1 Tablet(s) PO every other day 03/12/2018 04/10/2018 Inactive Percocet 10 mg-325 mg tablet RxNorm: 6253251 1-2 Tablet(s) PO Q6 PRN 03/12/2018 03/26/2018 Inactive Slow Fe 47.5 mg iron tablet,extended release RxNorm: 1 Tablet(s) PO 3 x week 02/28/2018 03/11/2018 Inactive promethazine 25 mg tablet RxNorm: 977488 Tablet(s) 1 Tablet(s) PO Q6 PRN TAKE NEEDED ONLY!!! 02/21/2018 04/26/2018 Inactive gabapentin 600 mg tablet RxNorm: 374588 Tablet(s) TAKE ONE & ONE-HALF TABLETS BY MOUTH THREE TIMES DAILY 02/20/20182018 Active Cymbalta 60 mg capsule,delayed release RxNorm: 744238 1 Capsule(s) PO daily take with 30mg tablet 02/20/2018 08/18/2018 Active Cymbalta 30 mg capsule,delayed release RxNorm: 003594 Capsule(s) TAKE ONE CAPSULE BY MOUTH ONCE DAILY - TAKE WITH THE 60 MG DOSE FOR A TOTAL OF 90 MG 02/20/2018 08/18/2018 Active Vitamin D2 50,000 unit capsule RxNorm: 4612662 1 Capsule(s) PO QW 02/20/2018 02/19/2018 Inactive Vitamin D2 50,000 unit capsule RxNorm: 7323201 1 Capsule(s) PO QW 02/20/2018 04/16/2018 Inactive mupirocin 2 % topical ointment RxNorm: 899893 APPLY TO SORE IN BELLY BUTTON TWICE DAILY 02/15/2018 No Stop Date Active Percocet 10 mg-325 mg tablet RxNorm: 6234454 1-2 Tablet(s) PO Q6 PRN 02/14/2018 02/28/2018 Inactive Totatianna SoloStar U-300 Insulin 300 unit/mL (1.5 mL) subcutaneous pen RxNorm: 6070792 40 Unit(s) SQ BID per dr raines 02/07/2018 03/08/2018 Inactive nystatin 100,000 unit/mL oral suspension RxNorm: 168791 5 Milliliter(s) PO QID swish and swallow 02/02/2018 02/11/2018 Inactive mupirocin 2 % topical ointment RxNorm: 775392 1 Application TOP BID 01/30/2018 02/08/2018 Inactive Tessalon Perles 100 mg capsule RxNorm: 962949 Capsule(s) 2 Capsule(s) PO TID as needed 01/23/2018 03/20/2018 Inactive Xanax 0.5 mg tablet RxNorm: 237333 Tablet(s) TAKE ONE TABLET BY MOUTH THREE TIMES DAILY NEEDED 01/17/20182017 Inactive ropinirole 1 mg tablet RxNorm: 219064 1 Tablet(s) PO BID 201705/10/2018 Active digoxin 125 mcg tablet RxNorm: 370257 1 Tablet(s) PO daily 04/22/2018 Inactive Percocet 10 mg-325 mg tablet RxNorm: 6413589 1-2 Tablet(s) PO Q6 PRN 01/04/2018 01/18/2018 Inactive Percocet 10 mg-325 mg tablet RxNorm: 2801634 1-2 Tablet(s) PO Q6 PRN 01/02/2018 01/03/2018 Inactive promethazine 25 mg tablet RxNorm: 789774 Tablet(s) 1 Tablet(s) PO Q6 PRN TAKE NEEDED ONLY!!! 01/02/2018 02/20/2018 Inactive pantoprazole 40 mg tablet,delayed release RxNorm: 469914 TAKE 1 TABLET BY MOUTH ONCE DAILY 12/25/2017 No Stop Date Active mupirocin 2 % topical ointment RxNorm: 138938 1 Application TOP BID 12/22/2017 12/31/2017 Inactive fluconazole 150 mg tablet RxNorm: 235042 1 Tablet(s) PO every other day x 3 doses 12/14/2017 12/23/2017 Inactive Percocet 10 mg-325 mg tablet RxNorm: 5475038 1-2 Tablet(s) PO Q6 PRN 12/13/2017 12/27/2017 Inactive hyoscyamine 0.125 mg sublingual tablet RxNorm: 4682909 Tablet(s) 1 Tablet(s) SL TID as needed 12/13/2017 04/11/2018 Inactive nystatin 100,000 unit/gram topical powder RxNorm: 913961 APPLY POWDER TOPICALLY 4 TIMES DAILY 12/11/2017 No Stop Date Active Xanax 0.5 mg tablet RxNorm: 627463 Tablet(s) TAKE ONE TABLET BY MOUTH THREE TIMES DAILY NEEDED 12/06/20172017 Inactive nitrofurantoin 50 mg capsule RxNorm: 739880 1 Capsule(s) PO BID 12/01/2017 11/30/2017 Inactive take probiotic BID x 7 days nitrofurantoin 50 mg capsule RxNorm: 085724 1 Capsule(s) PO BID 12/01/2017 12/07/2017 Inactive take probiotic BID x 7 days mupirocin 2 % topical ointment RxNorm: 020158 1 Application TOP BID 11/27/2017 12/06/2017 Inactive Tessalon Perles 100 mg capsule RxNorm: 687188 Capsule(s) 2 Capsule(s) PO TID as needed 11/21/2017 01/22/2018 Inactive nystatin 100,000 unit/mL oral suspension RxNorm: 657826 5 Milliliter(s) PO QID swish and swallow 11/17/2017 11/26/2017 Inactive nystatin 100,000 unit/mL oral suspension RxNorm: 400051 5 Milliliter(s) PO QID swish and swallow 11/17/2017 11/16/2017 Inactive Toprol XL 100 mg tablet,extended release RxNorm: 645302 TAKE ONE TABLET BY MOUTH TWICE DAILY 11/15/2017 No Stop Date Active ropinirole 1 mg tablet RxNorm: 879745 Tablet(s) BID 11/14/2017 01/10/2018 Inactive Diflucan 150 mg tablet RxNorm: 126037 Tablet(s) every other day 1 Tablet(s) PO every other day 11/14/2017 11/16/2017 Inactive Percocet 10 mg-325 mg tablet RxNorm: 6260989 1-2 Tablet(s) PO Q6 PRN 11/09/2017 11/23/2017 Inactive Flonase Allergy Relief 50 mcg/actuation nasal spray, suspension RxNorm: 4177760 2 [place] NASAL daily 11/06/20172017 Inactive cyclobenzaprine 10 mg tablet RxNorm: 217447 Tablet(s) TABLET(S) 1 TABLET(S) PO NEEDED TAKE 1 TABLET BY MOUTH EVERY 8 HOURS NEEDED 2017 No Stop Date Active Cymbalta 30 mg capsule,delayed release RxNorm: 027545 TAKE ONE CAPSULE BY MOUTH ONCE DAILY - TAKE WITH THE 60 MG DOSE FOR A TOTAL OF 90 MG 02/19/2018 Inactive Lantus Solostar U-100 Insulin 100 unit/mL (3 mL) subcutaneous pen RxNorm: 667151 Unit(s) SQ 35 units QAM and 55 units QHS Unit(s) SQ 10/27/2017 02/07/2018 Inactive Wants insulin pens Percocet 10 mg-325 mg tablet RxNorm: 0591146 1-2 Tablet(s) PO Q6 PRN 10/27/2017 11/08/2017 Inactive promethazine 25 mg tablet RxNorm: 022617 Tablet(s) 1 Tablet(s) PO Q6 PRN TAKE NEEDED ONLY!!! 10/27/2017 01/01/2018 Inactive Xanax 0.5 mg tablet RxNorm: 643601 Tablet(s) TAKE ONE TABLET BY MOUTH THREE TIMES DAILY 10/20/2017 04/08/2018 Inactive Tessalon Perles 100 mg capsule RxNorm: 714506 Capsule(s) 2 Capsule(s) PO TID as needed 10/19/2017 11/20/2017 Inactive Diflucan 150 mg tablet RxNorm: 484647 1 Tablet(s) PO every other day 10/15/2017 11/13/2017 Inactive Percocet 10 mg-325 mg tablet RxNorm: 6143767 1-2 Tablet(s) PO Q6 PRN 10/06/2017 10/20/2017 Inactive pantoprazole 40 mg tablet,delayed release RxNorm: 074523 1 Tablet(s) PO BID 10/03/2017 03/31/2018 Inactive Cymbalta 60 mg capsule,delayed release RxNorm: 779829 TAKE ONE CAPSULE BY MOUTH ONCE DAILY 09/21/2017 02/19/2018 Inactive Diflucan 150 mg tablet RxNorm: 919707 1 Tablet(s) PO every other day 09/15/2017 09/19/2017 Inactive hyoscyamine 0.125 mg sublingual tablet RxNorm: 6165841 1 Tablet(s) SL TID as needed 09/08/2017 12/12/2017 Inactive Lantus Solostar U-100 Insulin 100 unit/mL (3 mL) subcutaneous pen RxNorm: 717961 Unit(s) SQ 35 units QAM and 55 units QHS Unit(s) SQ 09/06/2017 09/20/2017 Inactive Wants insulin pens Lasix 40 mg tablet RxNorm: 836090 TAKE ONE TABLET BY MOUTH TWICE DAILY 08/25/2017 04/18/2018 Inactive ropinirole 1 mg tablet RxNorm: 927046 TAKE ONE TABLET BY MOUTH AT BEDTIME 08/25/2017 11/13/2017 Inactive Lantus U-100 Insulin 100 unit/mL subcutaneous solution RxNorm: 450044 35 units QAM and 55 units QHS Unit(s) SQ 08/21/2017 09/05/2017 Inactive Tessalon Perles 100 mg capsule RxNorm: 804642 Capsule(s) 2 Capsule(s) PO TID as needed 08/18/2017 10/18/2017 Inactive Percocet 10 mg-325 mg tablet RxNorm: 7569494 1-2 Tablet(s) PO Q6 PRN 08/16/2017 08/30/2017 Inactive pantoprazole 40 mg tablet,delayed release RxNorm: 246817 TAKE ONE TABLET BY MOUTH TWICE DAILY 08/14/2017 08/13/2017 Inactive pantoprazole 40 mg tablet,delayed release RxNorm: 113519 1 Tablet(s) PO daily 08/14/2017 10/02/2017 Inactive promethazine 25 mg tablet RxNorm: 158663 Tablet(s) 1 Tablet(s) PO Q6 PRN TAKE NEEDED ONLY!!! 08/11/2017 10/26/2017 Inactive omeprazole 20 mg capsule,delayed release RxNorm: 461826 1 Capsule(s) PO daily TAKE 1 CAPSULE BY MOUTH ONCE DAILY 08/07/2017 10/26/2017 Inactive nystatin 100,000 unit/mL oral suspension RxNorm: 384814 5 Milliliter(s) PO QID swish and swallow 08/07/2017 08/16/2017 Inactive mupirocin 2 % topical ointment RxNorm: 514929 APPLY TO SORE IN BELLY BUTTON TWICE DAILY 08/07/2017 02/14/2018 Inactive omeprazole 20 mg capsule,delayed release RxNorm: 888793 1 Capsule(s) PO BID TAKE 1 CAPSULE BY MOUTH TWICE DAILY 08/03/2017 08/06/2017 Inactive Diflucan 150 mg tablet RxNorm: 178560 1 Tablet(s) PO daily 08/05/2017 Inactive hyoscyamine 0.125 mg sublingual tablet RxNorm: 8198079 1 Tablet(s) SL TID as needed 08/03/2017 09/01/2017 Inactive gentamicin 0.3 % eye drops RxNorm: 429019 2 Drop(s) ophthalmic (eye) TID 08/03/2017 08/09/2017 Inactive Levaquin 500 mg tablet RxNorm: 914089 1 Tablet(s) PO every other day x3 doses 07/27/2017 08/02/2017 Inactive gentamicin 0.3 % eye drops RxNorm: 895672 2 Drop(s) ophthalmic (eye) TID 07/27/2017 08/02/2017 Inactive dicyclomine 10 mg capsule RxNorm: 460294 1 Capsule(s) PO TID 08/02/2017 Inactive Levaquin 500 mg tablet RxNorm: 522775 1 Tablet(s) PO daily 12/201707/26/2017 Inactive Lantus U-100 Insulin 100 unit/mL subcutaneous solution RxNorm: 872662 INJECT 35 UNITS SUBCUTANEOUSLY IN THE MORNING AND 55 UNITS AT BEDTIME 07/24/2017 09/05/2017 Inactive Tessalon Perles 100 mg capsule RxNorm: 278877 2 Capsule(s) PO TID as needed 07/24/2017 08/17/2017 Inactive Percocet 10 mg-325 mg tablet RxNorm: 0048397 1-2 Tablet(s) PO Q6 PRN 07/21/2017 08/04/2017 Inactive promethazine 25 mg tablet RxNorm: 336749 1 Tablet(s) PO Q6 PRN 1 Tablet(s) PO Q6 PRN 07/19/2017 07/26/2017 Inactive Cartia XT 240 mg capsule,extended release RxNorm: 905808 1 Capsule(s) PO daily 06/27/2017 06/21/2018 Active potassium chloride ER 20 mEq tablet,extended release RxNorm: 625758 Tablet(s) TAKE ONE TABLET BY MOUTH ONCE DAILY 06/21/2017 No Stop Date Active Lantus U-100 Insulin 100 unit/mL subcutaneous solution RxNorm: 093780 35 units QAM and 55 units QHS Unit(s) SQ 06/21/2017 07/20/2017 Inactive Please provide 30 day supply Percocet 10 mg-325 mg tablet RxNorm: 7518560 1-2 Tablet(s) PO Q6 PRN 06/21/2017 07/05/2017 Inactive Cartia XT 180 mg capsule,extended release RxNorm: 604115 Capsule(s) BID 06/21/2017 06/26/2017 Inactive Xanax 0.5 mg tablet RxNorm: 164913 Tablet(s) TAKE ONE TABLET BY MOUTH THREE TIMES DAILY 06/21/2017 08/19/2017 Inactive digoxin 125 mcg tablet RxNorm: 265195 1 Tablet(s) PO daily 10/18/2017 Inactive gabapentin 600 mg tablet RxNorm: 247125 Tablet(s) TAKE ONE & ONE-HALF TABLETS BY MOUTH THREE TIMES DAILY 06/21/20172017 Inactive dicyclomine 10 mg capsule RxNorm: 190723 1 Capsule(s) PO TID 07/26/2017 Inactive Lantus U-100 Insulin 100 unit/mL subcutaneous solution RxNorm: 473015 35 units QAM and 55 units QHS Unit(s) SQ 06/13/2017 06/20/2017 Inactive Please provide 30 day supply potassium chloride ER 20 mEq tablet,extended release RxNorm: 044006 TAKE ONE TABLET BY MOUTH ONCE DAILY 06/02/2017 Inactive cyclobenzaprine 10 mg tablet RxNorm: 460814 Tablet(s) TABLET(S) 1 TABLET(S) PO NEEDED TAKE 1 TABLET BY MOUTH EVERY 8 HOURS NEEDED 201711/02/2017 Inactive Tessalon Perles 100 mg capsule RxNorm: 486864 2 Capsule(s) PO TID as needed 06/01/2017 07/23/2017 Inactive promethazine 25 mg tablet RxNorm: 964636 1 Tablet(s) PO Q6 PRN 1 Tablet(s) PO Q6 PRN 05/25/2017 06/01/2017 Inactive gabapentin 600 mg tablet RxNorm: 318323 TAKE ONE & ONE-HALF TABLETS BY MOUTH THREE TIMES DAILY 05/23/2017 06/20/2017 Inactive promethazine 25 mg tablet RxNorm: 959371 1 Tablet(s) PO Q6 PRN 1 Tablet(s) PO Q6 PRN 05/19/2017 05/24/2017 Inactive Flagyl 500 mg tablet RxNorm: 669903 1 Tablet(s) PO TID 201605/26/2017 Inactive Levaquin 500 mg tablet RxNorm: 493210 1 Tablet(s) PO daily 05/16/2017 Inactive Tessalon Perles 100 mg capsule RxNorm: 157146 2 Capsule(s) PO TID as needed 05/17/2017 05/31/2017 Inactive Flagyl 500 mg tablet RxNorm: 638630 1 Tablet(s) PO TID 201605/16/2017 Inactive hyoscyamine 0.125 mg sublingual tablet RxNorm: 1960787 1 Tablet(s) SL TID as needed 05/17/2017 06/12/2017 Inactive Levaquin 500 mg tablet RxNorm: 192826 1 Tablet(s) PO daily 05/23/2017 Inactive Cymbalta 60 mg capsule,delayed release RxNorm: 618358 1 Capsule(s) PO daily take with 30mg tablet 05/16/2017 08/13/2017 Inactive Bentyl 10 mg capsule RxNorm: 837724 1 Capsule(s) PO TID as needed 05/12/2017 06/10/2017 Inactive Levsin 0.125 mg tablet RxNorm: 4733500 1 Tablet(s) PO Q4 PRN 1-2 Tablet(s) PO Q4 PRN 05/11/2017 05/11/2017 Inactive nystatin 100,000 unit/gram topical powder RxNorm: 363010 Gram(s) APPLY POWDER TOPICALLY 4 TIMES DAILY 05/11/20172017 Inactive nystatin 100,000 unit/mL oral suspension RxNorm: 408260 4 Milliliter(s) PO QID swish and swallow 05/10/2017 05/19/2017 Inactive and Monistat over the counter colestipol 1 gram tablet RxNorm: 5168939 TAKE ONE TABLET BY MOUTH TWICE DAILY 05/08/2017 03/29/2018 Inactive Lantus 100 unit/mL subcutaneous solution RxNorm: 282772 30 units QAM and 50 units QHS Unit(s) SQ 04/28/2017 05/27/2017 Inactive Please provide 30 day supply Lantus Solostar 100 unit/mL (3 mL) subcutaneous insulin pen RxNorm: 106537 Unit( s) SQ BID 04/28/2017 06/13/2017 Inactive 30 units q am and 50units at night Lantus 100 unit/mL subcutaneous solution RxNorm: 121105 30 units QAM and 50 units QHS Unit(s) SQ 04/28/2017 04/27/2017 Inactive Please provide 30 day supply Levsin 0.125 mg tablet RxNorm: 6906091 1 Tablet(s) PO Q4 PRN 1-2 Tablet(s) PO Q4 PRN 04/25/2017 05/10/2017 Inactive promethazine 25 mg tablet RxNorm: 288517 1 Tablet(s) PO Q6 PRN 1 Tablet(s) PO Q6 PRN 04/25/2017 05/02/2017 Inactive Toprol XL 100 mg tablet,extended release RxNorm: 440925 TAKE ONE TABLET BY MOUTH TWICE DAILY 04/24/2017 11/14/2017 Inactive Flagyl 500 mg tablet RxNorm: 197738 1 Tablet(s) PO TID 201604/30/2017 Inactive Levaquin 500 mg tablet RxNorm: 225795 1 Tablet(s) PO daily 05/201604/27/2017 Inactive Voltaren 1 % topical gel RxNorm: 222310 4 Gram(s) TOP QID 04/1810/14/2017 Inactive mupirocin 2 % topical ointment RxNorm: 248143 1 Application TOP BID 04/18/2017 04/27/2017 Inactive apply to sore in belly button Lantus Solostar 100 unit/mL (3 mL) subcutaneous insulin pen RxNorm: 905881 Unit( s) SQ BID 04/18/2017 04/27/2017 Inactive 20 units q am and 50units at night levothyroxine 88 mcg tablet RxNorm: 442485 1 Tablet(s) PO daily TAKE ONE TABLET BY MOUTH ONCE DAILY 04/06/2017 04/17/2017 Inactive Xanax 0.5 mg tablet RxNorm: 958054 Tablet(s) TAKE ONE TABLET BY MOUTH THREE TIMES DAILY 04/04/2017 06/02/2017 Inactive Percocet 10 mg-325 mg tablet RxNorm: 6416125 1-2 Tablet(s) PO Q6 PRN 04/04/2017 04/18/2017 Inactive cyclobenzaprine 10 mg tablet RxNorm: 623419 TAKE ONE TABLET BY MOUTH EVERY 8 HOURS NEEDED 04/03/2017 06/01/2017 Inactive potassium chloride ER 20 mEq tablet,extended release RxNorm: 355433 1 Tablet(s) PO daily 03/28/2017 06/01/2017 Inactive nystatin 100,000 unit/gram topical cream RxNorm: 779803 1 Application TOP BID 03/27/2017 04/09/2017 Inactive Levsin 0.125 mg tablet RxNorm: 6977094 1 Tablet(s) PO Q4 PRN 1-2 Tablet(s) PO Q4 PRN 03/27/2017 04/24/2017 Inactive promethazine 25 mg tablet RxNorm: 031569 1 Tablet(s) PO Q6 PRN 03/23/2017 03/29/2017 Inactive nystatin 100,000 unit/gram topical powder RxNorm: 797130 APPLY POWDER TOPICALLY 4 TIMES DAILY 03/17/2017 05/10/2017 Inactive Percocet 10 mg-325 mg tablet RxNorm: 3655234 1-2 Tablet(s) PO Q6 PRN 03/09/2017 03/23/2017 Inactive Levsin 0.125 mg tablet RxNorm: 9860883 1-2 Tablet(s) PO Q4 PRN 03/06/2017 03/26/2017 Inactive promethazine 25 mg tablet RxNorm: 284267 1 Tablet(s) PO Q6 PRN 03/06/2017 03/13/2017 Inactive potassium chloride ER 20 mEq tablet,extended release RxNorm: 702589 1 Tablet(s) PO BID 02/23/2017 03/09/2017 Inactive Levsin/SL 0.125 mg sublingual tablet RxNorm: 6224671 1-2 Tablet(s) SL Q4 PRN 02/17/2017 03/26/2017 Inactive potassium chloride ER 20 mEq tablet,extended release RxNorm: 463986 1 Tablet(s) PO BID 02/17/2017 02/21/2017 Inactive magnesium oxide 400 mg tablet RxNorm: 136808 1 Tablet(s) PO daily 02/17/2017 02/21/2017 Inactive then twice weekly thereafter Levsin 0.125 mg tablet RxNorm: 4203270 1-2 Tablet(s) PO Q4 PRN 02/17/2017 02/16/2017 Inactive promethazine 25 mg tablet RxNorm: 744521 1 Tablet(s) PO Q6 PRN 02/10/2017 03/05/2017 Inactive Percocet 10 mg-325 mg tablet RxNorm: 7422260 1-2 Tablet(s) PO Q6 PRN 02/09/2017 02/23/2017 Inactive Cymbalta 60 mg capsule,delayed release RxNorm: 171946 1 Capsule(s) PO daily take with 30mg tablet 02/06/2017 05/06/2017 Inactive Cymbalta 30 mg capsule,delayed release RxNorm: 259680 1 Capsule(s) PO daily take with 60mg tablet 02/06/2017 02/19/2018 Inactive take with 60mg=90mg Vitamin D2 50,000 unit capsule RxNorm: 166563 1 Capsule(s) PO daily 01/17/2017 01/16/2017 Inactive daily x 6 mths Tresiba FlexTouch U-100 100 unit/mL (3 mL) subcutaneous insulin pen RxNorm: 8504195 40 Unit(s) SQ daily 01/17/20172016 Inactive Tresiba FlexTouch U-100 100 unit/mL (3 mL) subcutaneous insulin pen RxNorm: 7201019 40 Unit(s) SQ daily 01/17/20172016 Inactive Vitamin D2 50,000 unit capsule RxNorm: 386971 1 Capsule(s) PO daily 01/17/2017 10/26/2017 Inactive daily x 6 mths Cymbalta 30 mg capsule,delayed release RxNorm: 768402 1 Capsule(s) PO daily 01/16/2017 02/05/2017 Inactive take with 60mg=90mg Percocet 10 mg-325 mg tablet RxNorm: 3406960 1-2 Tablet(s) PO Q6 PRN 01/13/2017 01/27/2017 Inactive gabapentin 600 mg tablet RxNorm: 939763 TAKE ONE & ONE-HALF TABLETS BY MOUTH THREE TIMES DAILY 01/10/2017 05/09/2017 Inactive Percocet 10 mg-325 mg tablet RxNorm: 6268437 1-2 Tablet(s) PO Q6 PRN 12/21/2016 01/04/2017 Inactive Xanax 0.5 mg tablet RxNorm: 345639 Tablet(s) TAKE ONE TABLET BY MOUTH THREE TIMES DAILY 12/20/2016 02/15/2017 Inactive promethazine 25 mg tablet RxNorm: 999372 1 Tablet(s) PO Q6 PRN 12/16/2016 12/18/2016 Inactive prednisone 20 mg tablet RxNorm: 134982 2 Tablet(s) PO daily 12/14/2016 Inactive prednisone 20 mg tablet RxNorm: 608560 2 Tablet(s) PO daily 03/26/2017 Inactive Eliquis 5 mg tablet RxNorm: 2730091 1 Tablet(s) PO BID 201601/11/2017 Inactive doxycycline monohydrate 100 mg tablet RxNorm: 705165 1 Tablet(s) PO BID 12/13/2016 03/26/2017 Inactive give doxycyline hyclate cyclobenzaprine 10 mg tablet RxNorm: 512450 TAKE ONE TABLET BY MOUTH EVERY 8 HOURS NEEDED 12/09/2016 12/28/2016 Inactive Cymbalta 60 mg capsule,delayed release RxNorm: 072640 TAKE ONE CAPSULE BY MOUTH ONCE DAILY 11/30/2016 02/05/2017 Inactive promethazine 25 mg tablet RxNorm: 548099 2 Tablet(s) PO Q6 PRN 11/29/2016 12/16/2016 Inactive Percocet 10 mg-325 mg tablet RxNorm: 9484290 1-2 Tablet(s) PO Q6 PRN 11/24/2016 12/08/2016 Inactive mupirocin 2 % topical ointment RxNorm: 956399 1 Application TOP BID 11/11/2016 11/24/2016 Inactive Xanax 0.5 mg tablet RxNorm: 566228 Tablet(s) TAKE ONE TABLET BY MOUTH THREE TIMES DAILY 11/11/2016 12/19/2016 Inactive Belviq 10 mg tablet RxNorm: 8844978 1 Tablet(s) PO BID 201612/10/2016 Inactive Toprol XL 100 mg tablet,extended release RxNorm: 738066 TAKE ONE TABLET BY MOUTH TWICE DAILY 11/04/2016 04/02/2017 Inactive albuterol sulfate concentrate 2.5 mg/0.5 mL solution for nebulization RxNorm: 326009 USE ONE VIAL IN NEBULIZER EVERY 4 TO 6 HOURS NEEDED 11/03/2016 11/12/2016 Inactive Percocet 10 mg-325 mg tablet RxNorm: 3666406 1-2 Tablet(s) PO Q6 PRN 10/31/2016 11/23/2016 Inactive promethazine 25 mg tablet RxNorm: 421933 2 Tablet(s) PO Q6 PRN 10/28/2016 11/28/2016 Inactive nystatin 100,000 unit/mL oral suspension RxNorm: 382883 5 Milliliter(s) PO QID 10/28/2016 11/06/2016 Inactive Levemir FlexTouch 100 unit/mL (3 mL) subcutaneous insulin pen RxNorm: 864499 45 Unit(s) SQ BID 10/28/2016 01/16/2017 Inactive 45 q am and 40 q anita cyclobenzaprine 10 mg tablet RxNorm: 786683 TAKE ONE TABLET BY MOUTH EVERY 8 HOURS NEEDED 10/21/2016 11/09/2016 Inactive Lasix 40 mg tablet RxNorm: 268882 TAKE ONE TABLET BY MOUTH TWICE DAILY 10/18/2016 04/15/2017 Inactive Percocet 10 mg-325 mg tablet RxNorm: 4986917 1-2 Tablet(s) PO Q6 PRN 10/18/2016 10/30/2016 Inactive acyclovir 400 mg tablet RxNorm: 111134 2 Tablet(s) PO QID 10/1310/22/2016 Inactive Lasix 40 mg tablet RxNorm: TAKE ONE TABLET BY MOUTH TWICE DAILY 10/10/2016 10/17/2016 Inactive ropinirole 1 mg tablet RxNorm: 458442 TAKE ONE TABLET BY MOUTH AT BEDTIME 10/10/2016 04/07/2017 Inactive nystatin 100,000 unit/mL oral suspension RxNorm: 396660 5 Milliliter(s) PO QID x 10 days 09/30/2016 10/09/2016 Inactive nystatin 100,000 unit/mL oral suspension RxNorm: 742756 5 Milliliter(s) PO QID x 10 days 09/30/2016 10/09/2016 Inactive Swish et swallow Flonase Allergy Relief 50 mcg/actuation nasal spray, suspension RxNorm: 0970919 2 [place] NASAL daily 09/23/20162016 Inactive Percocet 10 mg-325 mg tablet RxNorm: 3914125 1-2 Tablet(s) PO Q6 PRN 09/23/2016 10/17/2016 Inactive doxycycline monohydrate 100 mg tablet RxNorm: 513036 1 Tablet(s) PO BID 09/23/2016 10/02/2016 Inactive give doxycyline hyclate Levemir FlexTouch 100 unit/mL (3 mL) subcutaneous insulin pen RxNorm: 131903 40 Unit(s) SQ BID 09/15/2016 10/27/2016 Inactive nystatin 100,000 unit/gram topical powder RxNorm: 675998 1 Application TOP QID 09/13/2016 09/22/2016 Inactive Voltaren 1 % topical gel RxNorm: 799979 4 Gram(s) TOP QID 09/1303/11/2017 Inactive Anusol-HC 25 mg rectal suppository RxNorm: 2452637 1 Suppository RTL HS 09/13/2016 09/26/2016 Inactive hydrocodone 10 mg-acetaminophen 325 mg tablet RxNorm: 400358 1-2 Tablet(s) PO Q6 as needed 09/13/2016 09/22/2016 Inactive Linzess 145 mcg capsule RxNorm: 8130678 1 Capsule(s) PO daily 09/01/2016 10/26/2017 Inactive Linzess 145 mcg capsule RxNorm: 3997161 1 Capsule(s) PO daily 09/01/2016 08/31/2016 Inactive Zofran 4 mg tablet RxNorm: 059873 TAKE ONE TABLET BY MOUTH EVERY 4 TO 6 HOURS NEEDED 08/29/2016 08/02/2017 Inactive Voltaren 1 % topical gel RxNorm: 842777 4 Gram(s) TOP QID 08/2309/12/2016 Inactive levothyroxine 88 mcg tablet RxNorm: 792053 TAKE ONE TABLET BY MOUTH ONCE DAILY 08/19/2016 12/16/2016 Inactive hydrocodone 10 mg-acetaminophen 325 mg tablet RxNorm: 200222 1 Tablet(s) PO Q6 as needed 08/17/2016 09/12/2016 Inactive nystatin 100,000 unit/gram topical powder RxNorm: 057057 1 Application TOP QID 08/16/2016 08/25/2016 Inactive Cymbalta 60 mg capsule,delayed release RxNorm: 203409 TAKE ONE CAPSULE BY MOUTH ONCE DAILY 08/10/2016 11/29/2016 Inactive Voltaren 1 % topical gel RxNorm: 621953 4 Gram(s) TOP QID 08/1008/22/2016 Inactive Voltaren 1 % topical gel RxNorm: 566413 4 Gram(s) TOP QID 08/1008/09/2016 Inactive promethazine 25 mg tablet RxNorm: 826369 TAKE ONE TABLET BY MOUTH EVERY 8 HOURS NEEDED FOR NAUSEA 07/29/20162017 Inactive nystatin 100,000 unit/gram topical powder RxNorm: 811408 1 Application TOP QID 07/26/2016 08/04/2016 Inactive Levemir FlexTouch U-100 Insulin 100 unit/mL (3 mL) subcutaneous pen RxNorm: 564771 35 Unit(s) SQ BID 07/26/201609/2016 Inactive 35 q am and 30 q pm cyclobenzaprine 10 mg tablet RxNorm: 829130 TAKE ONE TABLET BY MOUTH EVERY 8 HOURS NEEDED 07/14/2016 08/22/2016 Inactive hydrocodone 10 mg-acetaminophen 325 mg tablet RxNorm: 630447 1 Tablet(s) PO Q6 as needed 07/11/2016 08/16/2016 Inactive nystatin 100,000 unit/mL oral suspension RxNorm: 290798 5 Milliliter(s) PO QID x 10 days 07/05/2016 07/04/2016 Inactive nystatin 100,000 unit/mL oral suspension RxNorm: 718534 5 Milliliter(s) PO QID x 10 days 07/05/2016 07/04/2016 Inactive nystatin 100,000 unit/mL oral suspension RxNorm: 438941 5 Milliliter(s) PO QID x 10 days 07/05/2016 07/14/2016 Inactive Swish et swallow doxycycline monohydrate 100 mg tablet RxNorm: 893812 1 Tablet(s) PO BID 06/24/2016 07/03/2016 Inactive give doxycyline hyclate promethazine 25 mg tablet RxNorm: 832482 TAKE ONE TABLET BY MOUTH EVERY 8 HOURS NEEDED FOR NAUSEA 06/01/20162016 Inactive pantoprazole 40 mg tablet,delayed release RxNorm: 528637 1 Tablet(s) PO BID 05/25/2016 08/02/2017 Inactive Zofran 4 mg tablet RxNorm: 096585 1 Tablet(s) PO Q12 PRN TAKE 1 TABLET BY MOUTH EVERY 4 TO 6 HOURS NEEDED 05/24/2016 Inactive hydrocodone 10 mg-acetaminophen 325 mg tablet RxNorm: 073412 1 Tablet(s) PO Q6 as needed 05/24/2016 07/10/2016 Inactive Levemir FlexTouch 100 unit/mL (3 mL) subcutaneous insulin pen RxNorm: 889855 25 Unit(s) SQ BID 05/24/2016 06/22/2016 Inactive Xanax 0.5 mg tablet RxNorm: 687027 Tablet(s) TAKE ONE TABLET BY MOUTH THREE TIMES DAILY 05/11/2016 07/09/2016 Inactive BD Insulin Pen Needle UF Short 31 gauge x 5/16" RxNorm: [facility] 05/06/2016 05/05/2016 Inactive BD Insulin Pen Needle UF Short 31 gauge x 5/16" RxNorm: [facility] 05/06/2016 06/04/2016 Inactive colestipol 1 gram tablet RxNorm: 1440894 Tablet(s) TAKE 1 TABLET BY MOUTH TWICE DAILY 04/22/2016 04/16/2017 Inactive Levemir FlexTouch 100 unit/mL (3 mL) subcutaneous insulin pen RxNorm: 196032 20 Unit(s) SQ BID 04/19/2016 05/18/2016 Inactive 25 UNITS Q AM AND 20 UNITS Q HS Cartia XT 180 mg capsule,extended release RxNorm: 650836 Capsule(s) BID 04/11/2016 04/05/2017 Inactive hydrocodone 10 mg-acetaminophen 325 mg tablet RxNorm: 616520 1 Tablet(s) PO Q6 as needed 04/11/2016 05/23/2016 Inactive Levemir FlexTouch 100 unit/mL (3 mL) subcutaneous insulin pen RxNorm: 419333 20 Unit(s) SQ BID 04/11/2016 04/18/2016 Inactive 20 UNITS Q AM AND 15 UNITS Q HS X 1 WEEK THEN 20 UNITS BID levothyroxine 88 mcg tablet RxNorm: 551340 1 Tablet(s) PO daily 03/21/2016 07/18/2016 Inactive Cymbalta 60 mg capsule,delayed release RxNorm: 717985 1 Capsule(s) PO daily 03/21/2016 07/18/2016 Inactive diltiazem ER (XR/XT) 240 mg capsule,extended release, controlled RxNorm: 279876 1 Capsule(s) PO BID 03/18/20162017 Inactive doxycycline hyclate 100 mg tablet RxNorm: 138631 1 Tablet(s) PO BID 03/11/2016 03/17/2016 Inactive Levemir FlexTouch 100 unit/mL (3 mL) subcutaneous insulin pen RxNorm: 371538 10 Unit(s) SQ BID 03/11/2016 04/09/2016 Inactive Lasix 40 mg tablet RxNorm: 120860 1 Tablet(s) PO BID 201509/06/2016 Inactive gabapentin 600 mg tablet RxNorm: 105805 Tablet(s) 1.5 TABLET(S) PO TID 03/04/2016 08/30/2016 Inactive Toujeo SoloStar 300 unit/mL (1.5 mL) subcutaneous insulin pen RxNorm: 2620107 10 Unit(s) SQ QHS 02/26/2016 03/26/2016 Inactive polymyxin B sulfate 10,000 unit-trimethoprim 1 mg/mL eye drops RxNorm: 550623 2 Drop(s) OPH TID 02/26/2016 03/03/2016 Inactive Lasix 20 mg tablet RxNorm: 587700 2 Tablet(s) PO BID TAKE 2 TABLETS BY MOUTH EVERY MORNING AND 2 TABLET BY MOUTH AT 3 PM 02/26/2016 03/10/2016 Inactive cyclobenzaprine 10 mg tablet RxNorm: 232823 Tablet(s) TABLET(S) TABLET(S) 1 TABLET (S) PO NEEDED TAKE 1 TABLET BY MOUTH EVERY 8 HOURS NEEDED 02/26/2016 07/13/2016 Inactive early fill- pt lost med Levemir FlexTouch 100 unit/mL (3 mL) subcutaneous insulin pen RxNorm: 033620 16 Unit(s) SQ QHS 02/18/2016 02/17/2016 Inactive Levemir FlexTouch 100 unit/mL (3 mL) subcutaneous insulin pen RxNorm: 036604 16 Unit(s) SQ QHS 02/18/2016 02/25/2016 Inactive Levemir 100 unit/mL subcutaneous solution RxNorm: 078850 16 Unit(s) SQ QHS 02/15/2016 02/17/2016 Inactive disp needles as well Effexor XR 37.5 mg capsule,extended release RxNorm: 201028 1 Capsule(s) QPM CAPSULE(S) PO TAKE 2 CAPSULES BY MOUTH EVERY MORNING AND 1 CAPSULE BY MOUTH EVERY NIGHT AT BEDTIME 02/15/20162015 Inactive clotrimazole 100 mg vaginal tablet RxNorm: 396898 1 Tablet(s) VAG QHS 02/05/2016 02/11/2016 Inactive clotrimazole 100 mg vaginal tablet RxNorm: 114445 1 Tablet(s) VAG QHS 02/05/2016 02/04/2016 Inactive hydrocodone 10 mg-acetaminophen 325 mg tablet RxNorm: 086480 1 Tablet(s) PO Q6 as needed 02/05/2016 04/10/2016 Inactive flecainide 100 mg tablet RxNorm: 655268 1 Tablet(s) PO BID No Stop Date Active potassium chloride ER 10 mEq tablet,extended release RxNorm: 886279 1 Tablet(s) PO daily 1 TABLET(S) PO QDAY PRN TAKE WITH LASIX 02/02/2016 01/26/2017 Inactive Brovana 15 mcg/2 mL solution for nebulization RxNorm: 231700 2 Milliliter(s) INH BID PRN 02/02/2016 03/20/2016 Inactive promethazine 25 mg tablet RxNorm: 178938 1 Tablet(s) PO Q8 as needed nausea 01/27/2016 03/20/2016 Inactive promethazine 25 mg tablet RxNorm: 087228 1 Tablet(s) PO Q6 PRN 01/27/2016 02/03/2016 Inactive nystatin 100,000 unit/mL oral suspension RxNorm: 955169 5 Unit(s) PO QID 01/12/2016 01/21/2016 Inactive promethazine 25 mg tablet RxNorm: 398669 1 Tablet(s) PO Q6 PRN 12/30/2015 01/06/2016 Inactive hydrocodone 7.5 mg-acetaminophen 325 mg tablet RxNorm: 280491 1 Tablet(s) PO q 6 hours prn for pain 12/10/2015 01/06/2016 Inactive Xanax 0.5 mg tablet RxNorm: 061110 TAKE ONE TABLET BY MOUTH THREE TIMES DAILY 12/02/2015 12/31/2015 Inactive Xanax 0.5 mg tablet RxNorm: 584349 Tablet(s) TAKE 1 TABLET BY MOUTH THREE TIMES DAILY 12/02/2015 11/30/2015 Inactive Anusol-HC 25 mg rectal suppository RxNorm: 4622043 1 Suppository RTL HS 11/27/2015 09/12/2016 Inactive ropinirole 1 mg tablet RxNorm: 696127 1 Tablet(s) PO QHS 201505/24/2016 Inactive nystatin 100,000 unit/mL oral suspension RxNorm: 697879 5 Unit(s) PO QID 11/20/2015 11/29/2015 Inactive albuterol sulfate concentrate 2.5 mg/0.5 mL solution for nebulization RxNorm: 607755 3 Milliliter(s) INH Q4-6H as needed 11/10/2015 11/02/2016 Inactive doxycycline monohydrate 100 mg tablet RxNorm: 513893 1 Tablet(s) PO BID 11/10/2015 11/19/2015 Inactive give doxycyline hyclate promethazine 25 mg tablet RxNorm: 546002 1 Tablet(s) PO Q6 PRN 11/05/2015 11/12/2015 Inactive Bactroban 2 % topical ointment RxNorm: 011680 1 APPLICATION TOP BID 10/27/2015 10/26/2017 Inactive Belviq 10 mg tablet RxNorm: 5981765 1 Tablet(s) PO BID 201511/25/2015 Inactive hydrocodone 7.5 mg-acetaminophen 325 mg tablet RxNorm: 934697 1 Tablet(s) PO q 6 hours prn for pain 10/20/2015 11/18/2015 Inactive Toprol XL 100 mg tablet,extended release RxNorm: 426166 Tablet(s) TAKE 1 TABLET BY MOUTH TWICE DAILY 10/16/20152016 Inactive Diflucan 150 mg tablet RxNorm: 429522 1 Tablet(s) PO every other day 10/14/2015 10/23/2015 Inactive Xanax 0.5 mg tablet RxNorm: 999287 Tablet(s) TAKE 1 TABLET BY MOUTH THREE TIMES DAILY 10/14/2015 05/10/2016 Inactive Toprol XL 100 mg tablet,extended release RxNorm: 461011 Tablet(s) TAKE 1 TABLET BY MOUTH TWICE DAILY 10/13/20152015 Inactive cyclobenzaprine 10 mg tablet RxNorm: 868906 Tablet(s) TABLET(S) TABLET(S) 1 TABLET (S) PO NEEDED TAKE 1 TABLET BY MOUTH EVERY 8 HOURS NEEDED 10/02/2015 10/14/2015 Inactive Zofran 4 mg tablet RxNorm: 581780 Tablet(s) 1 TABLET(S) PRN TAKE 1 TABLET BY MOUTH EVERY 4 TO 6 HOURS NEEDED 09/29/2015 12/27/2015 Inactive Synthroid 88 mcg tablet RxNorm: 623144 1 Tablet(s) PO daily 1 TABLET(S) PO DAILY 09/29/2015 10/28/2015 Inactive Patient requests 90 days supply promethazine 25 mg tablet RxNorm: 408605 1 Tablet(s) PO Q6 PRN 09/29/2015 11/04/2015 Inactive Lasix 20 mg tablet RxNorm: 093887 2 Tablet(s) PO BID 201501/18/2016 Inactive promethazine 25 mg tablet RxNorm: 471649 1 Tablet(s) PO Q6 PRN 09/22/2015 09/28/2015 Inactive hydrocodone 7.5 mg-acetaminophen 325 mg tablet RxNorm: 360378 1 Tablet(s) PO q 6 hours prn for pain 09/17/2015 10/16/2015 Inactive WelChol 625 mg tablet RxNorm: 069111 3 Tablet(s) PO BID 201503/26/2017 Inactive promethazine 25 mg tablet RxNorm: 328864 1 Tablet(s) PO Q8 as needed 09/07/2015 10/26/2017 Inactive Levemir 100 unit/mL subcutaneous solution RxNorm: 288316 16 Unit(s) SQ QHS 09/01/2015 02/14/2016 Inactive pantoprazole 40 mg tablet,delayed release RxNorm: 468140 1 Tablet(s) PO daily 09/01/2015 05/24/2016 Inactive Effexor XR 37.5 mg capsule,extended release RxNorm: 102624 Capsule(s) CAPSULE(S) PO TAKE 2 CAPSULES BY MOUTH EVERY MORNING AND 1 CAPSULE BY MOUTH EVERY NIGHT AT BEDTIME 08/27/2015 02/14/2016 Inactive promethazine 25 mg tablet RxNorm: 663227 1 Tablet(s) PO Q8 as needed 08/13/2015 09/06/2015 Inactive gabapentin 600 mg tablet RxNorm: 817009 Tablet(s) 1.5 TABLET(S) PO TID 08/13/2015 02/08/2016 Inactive hydrocodone 7.5 mg-acetaminophen 325 mg tablet RxNorm: 885224 1 Tablet(s) PO q 6 hours prn for pain 08/10/2015 09/08/2015 Inactive Zofran 4 mg tablet RxNorm: 826419 Tablet(s) 1 TABLET(S) PRN TAKE 1 TABLET BY MOUTH EVERY 4 TO 6 HOURS NEEDED 08/04/2015 08/03/2015 Inactive Zofran 4 mg tablet RxNorm: 957882 Tablet(s) 1 TABLET(S) PRN TAKE 1 TABLET BY MOUTH EVERY 4 TO 6 HOURS NEEDED 08/04/2015 09/28/2015 Inactive doxycycline monohydrate 100 mg tablet RxNorm: 705851 1 Tablet(s) PO BID 08/04/2015 08/10/2015 Inactive give doxycyline hyclate Diflucan 150 mg tablet RxNorm: 563882 1 Tablet(s) PO every other day 07/31/2015 08/09/2015 Inactive nystatin 100,000 unit/mL oral suspension RxNorm: 616976 5 Milliliter(s) PO QID 07/31/2015 07/30/2015 Inactive Diflucan 150 mg tablet RxNorm: 577771 1 Tablet(s) PO every other day 07/31/2015 07/30/2015 Inactive nystatin 100,000 unit/mL oral suspension RxNorm: 614017 5 Milliliter(s) PO QID 07/31/2015 08/09/2015 Inactive Ceftin 500 mg tablet RxNorm: 615515 1 Tablet(s) PO BID 201507/23/2015 Inactive Ceftin 500 mg tablet RxNorm: 959140 1 Tablet(s) PO BID Pre-medicate with benadryl 50 mg, pepcid 20 mg, and nathanael before each dose 07/24/2015 07/30/2015 Inactive cyclobenzaprine 10 mg tablet RxNorm: 675853 TABLET(S) TABLET(S) 1 TABLET(S) PO NEEDED TAKE 1 TABLET BY MOUTH EVERY 8 HOURS NEEDED 201502/25/2016 Inactive early fill- pt lost med Synthroid 88 mcg tablet RxNorm: 473845 1 TABLET(S) PO DAILY 07/201509/28/2015 Inactive Patient requests 90 days supply cyclobenzaprine 10 mg tablet RxNorm: 856458 Tablet(s) TABLET(S) TABLET(S) 1 TABLET (S) PO NEEDED TAKE 1 TABLET BY MOUTH EVERY 8 HOURS NEEDED 07/23/2015 10/01/2015 Inactive early fill- pt lost med Promethazine VC 6.25 mg-5 mg/5 mL syrup RxNorm: 7399559 1-2 Teaspoon(s) PO Q6 PRN as needed 07/22/2015 03/20/2016 Inactive Diflucan 150 mg tablet RxNorm: 177325 1 Tablet(s) PO daily 06/201507/22/2015 Inactive Lasix 20 mg tablet RxNorm: 575895 Tablet(s) TAKE 2 TABLETS BY MOUTH EVERY MORNING AND 2 TABLET BY MOUTH AT 3PM 07/16/2015 09/21/2015 Inactive Toprol XL 100 mg tablet,extended release RxNorm: 080594 Tablet(s) TAKE 1 TABLET BY MOUTH TWICE DAILY 07/16/20152015 Inactive Cartia XT 180 mg capsule,extended release RxNorm: 415822 Capsule(s) 1 CAPSULE(S) PO DAILY TAKE 1 CAPSULE BY MOUTH AT BEDTIME ..TAKE THIS IN ADDITION TO 240 MG IN THE MORNING 07/14/2015 04/10/2016 Inactive diltiazem ER (XR/XT) 240 mg capsule,extended release, controlled RxNorm: 761499 Capsule(s) TAKE 1 CAPSULE BY MOUTH DAILY 07/14/2015 03/17/2016 Inactive gabapentin 600 mg tablet RxNorm: 380640 Tablet(s) 1.5 TABLET(S) PO TID 07/06/2015 08/12/2015 Inactive Phenergan 25 mg tablet RxNorm: 421792 1 Tablet(s) PO Q8 as needed nausea 06/29/2015 01/25/2016 Inactive doxycycline monohydrate 100 mg tablet RxNorm: 379079 1 Tablet(s) PO BID 06/29/2015 06/28/2015 Inactive doxycycline monohydrate 100 mg tablet RxNorm: 801206 1 Tablet(s) PO BID 06/29/2015 07/08/2015 Inactive give doxycyline hyclate doxycycline monohydrate 100 mg tablet RxNorm: 082142 1 Tablet(s) PO BID 06/29/2015 06/28/2015 Inactive Lasix 20 mg tablet RxNorm: 525223 Tablet(s) TAKE 2 TABLETS BY MOUTH EVERY MORNING AND 2 TABLET BY MOUTH AT 3PM 06/29/2015 07/15/2015 Inactive Lasix 20 mg tablet RxNorm: 201627 Tablet(s) TAKE 2 TABLETS BY MOUTH EVERY MORNING AND 1 TABLET BY MOUTH AT 3PM 06/26/2015 06/28/2015 Inactive Xanax 0.5 mg tablet RxNorm: 455762 Tablet(s) TAKE 1 TABLET BY MOUTH THREE TIMES DAILY 06/26/2015 07/25/2015 Inactive Kenalog 40 mg/mL suspension for injection RxNorm: 7937703 Milliliter(s) Inj 06/26/2015 06/26/2015 Inactive hydrocodone 7.5 mg-acetaminophen 325 mg tablet RxNorm: 172802 1 Tablet(s) PO q 6 hours prn for pain 06/26/2015 07/25/2015 Inactive Dexilant 60 mg capsule, delayed release RxNorm: 986480 1 Capsule(s) PO daily 06/26/2015 08/24/2015 Inactive colestipol 1 gram tablet RxNorm: 0397635 1 TABLET(S) PO BID TAKE 1 TABLET BY MOUTH TWICE DAILY 06/16/2015 03/11/2016 Inactive hydrocodone 7.5 mg-acetaminophen 325 mg tablet RxNorm: 112518 1 Tablet(s) PO q 6 hours prn for pain 06/11/2015 06/25/2015 Inactive cyclobenzaprine 10 mg tablet RxNorm: 762352 TABLET(S) TABLET(S) 1 TABLET(S) PO NEEDED TAKE 1 TABLET BY MOUTH EVERY 8 HOURS NEEDED 201507/22/2015 Inactive early fill- pt lost med Zofran 4 mg tablet RxNorm: 287925 1 TABLET(S) PRN TAKE 1 TABLET BY MOUTH EVERY 4 TO 6 HOURS NEEDED 05/25/20152015 Inactive Zofran 4 mg tablet RxNorm: 401880 1 Tablet(s) PRN TAKE 1 TABLET BY MOUTH EVERY 4 TO 6 HOURS NEEDED 05/19/20152015 Inactive gabapentin 600 mg tablet RxNorm: 445725 1.5 TABLET(S) PO TID 07/05/2015 Inactive Lasix 20 mg tablet RxNorm: 234159 TAKE 2 TABLETS BY MOUTH EVERY MORNING AND 1 TABLET BY MOUTH AT 3PM 05/07/20152015 Inactive Effexor XR 37.5 mg capsule,extended release RxNorm: 975866 Capsule(s) CAPSULE(S) PO TAKE 2 CAPSULES BY MOUTH EVERY MORNING AND 1 CAPSULE BY MOUTH EVERY NIGHT AT BEDTIME 04/15/2015 08/26/2015 Inactive Diflucan 150 mg tablet RxNorm: 738439 1 Tablet(s) PO daily 04/18/2015 Inactive Victoza 3-Babak 0.6 mg/0.1 mL (18 mg/3 mL) subcutaneous pen injector RxNorm: 898546 1.8 Milligram(s) SQ daily 04/14/201508/10 Inactive Levaquin 500 mg tablet RxNorm: 864685 1 Tablet(s) PO daily 04/20/2015 Inactive potassium chloride ER 10 mEq tablet,extended release RxNorm: 563920 1 TABLET(S) PO QDAY PRN TAKE WITH LASIX 04/13/201504/2016 Inactive Effexor XR 37.5 mg capsule,extended release RxNorm: 675734 CAPSULE(S) PO TAKE 2 CAPSULES BY MOUTH EVERY MORNING AND 1 CAPSULE BY MOUTH EVERY NIGHT AT BEDTIME 04/10/2015 04/14/2015 Inactive pantoprazole 40 mg tablet,delayed release RxNorm: 490382 1 Tablet(s) PO daily 03/31/2015 08/31/2015 Inactive Dexilant 60 mg capsule, delayed release RxNorm: 278464 1 Capsule(s) PO daily 03/31/2015 03/31/2015 Inactive pantoprazole 40 mg tablet,delayed release RxNorm: 798738 1 Tablet(s) PO daily 03/31/2015 03/30/2015 Inactive Dexilant 60 mg capsule, delayed release RxNorm: 167934 1 Capsule(s) PO daily 03/31/2015 05/29/2015 Inactive Dexilant 60 mg capsule, delayed release RxNorm: 340674 1 Capsule(s) PO daily 03/30/2015 03/30/2015 Inactive hydrocodone 7.5 mg-acetaminophen 325 mg tablet RxNorm: 564639 1 Tablet(s) PO q 6 hours prn for pain 03/30/2015 04/28/2015 Inactive cyclobenzaprine 10 mg tablet RxNorm: 212327 TABLET(S) TABLET(S) 1 TABLET(S) PO NEEDED TAKE 1 TABLET BY MOUTH EVERY 8 HOURS NEEDED 201405/31/2015 Inactive early fill- pt lost med Xanax 0.5 mg tablet RxNorm: 302515 Tablet(s) TAKE 1 TABLET BY MOUTH THREE TIMES DAILY 03/25/2015 04/23/2015 Inactive Lasix 20 mg tablet RxNorm: 044324 TAKE 2 TABLETS BY MOUTH EVERY MORNING AND 1 TABLET BY MOUTH AT 3PM 03/23/20152014 Inactive Levemir Flexpen 100 unit/mL (3 mL) solution subcutaneous insulin pen RxNorm: 230018 15 Unit(s) SQ BID 03/20/20152015 Inactive give quanity sufficient for 1 month- Dexilant 60 mg capsule, delayed release RxNorm: 377848 1 Capsule(s) PO daily 03/19/2015 03/29/2015 Inactive Dexilant 60 mg capsule, delayed release RxNorm: 387880 1 Capsule(s) PO daily 03/19/2015 03/18/2015 Inactive Diflucan 150 mg tablet RxNorm: 902577 1 Tablet(s) PO every other day x7 doses 03/19/2015 03/21/2015 Inactive hydrocodone 7.5 mg-acetaminophen 325 mg tablet RxNorm: 289487 1 Tablet(s) PO q 6 hours prn for pain 02/27/2015 03/28/2015 Inactive Lasix 20 mg tablet RxNorm: 935335 TAKE 2 TABLETS BY MOUTH EVERY MORNING AND 1 TABLET BY MOUTH AT 3PM 02/27/20152014 Inactive omeprazole 20 mg capsule,delayed release RxNorm: 527093 1 CAPSULE(S) PO DAILY TAKE 1 CAPSULE BY MOUTH TWICE DAILY 02/26/2015 10/26/2017 Inactive Zofran 4 mg tablet RxNorm: 745392 1 Tablet(s) PRN TAKE 1 TABLET BY MOUTH EVERY 4 TO 6 HOURS NEEDED 02/24/20152014 Inactive fluconazole 150 mg tablet RxNorm: 565824 1 Tablet(s) PO every other day x 5 doses 02/19/2015 02/28/2015 Inactive cyclobenzaprine 10 mg tablet RxNorm: 146753 TABLET(S) TABLET(S) 1 TABLET(S) PO NEEDED TAKE 1 TABLET BY MOUTH EVERY 8 HOURS NEEDED 201403/29/2015 Inactive early fill- pt lost med hydrocodone 7.5 mg-acetaminophen 325 mg tablet RxNorm: 978170 1 Tablet(s) PO q 6 hours prn for pain 01/29/2015 02/26/2015 Inactive Xanax 0.5 mg tablet RxNorm: 469943 Tablet(s) TAKE 1 TABLET BY MOUTH THREE TIMES DAILY 01/29/2015 02/27/2015 Inactive Bactroban 2 % topical ointment RxNorm: 398578 1 APPLICATION TOP BID 01/26/2015 10/26/2015 Inactive Bactroban 2 % topical ointment RxNorm: 992658 1 Application TOP BID 01/15/2015 01/25/2015 Inactive doxycycline hyclate 100 mg tablet RxNorm: 704688 1 Tablet(s) PO BID 01/15/2015 01/21/2015 Inactive nystatin 100,000 unit/mL oral suspension RxNorm: 819655 5 Milliliter(s) PO QID 01/15/2015 01/24/2015 Inactive Cartia XT 180 mg capsule,extended release RxNorm: 589077 1 CAPSULE(S) PO DAILY TAKE 1 CAPSULE BY MOUTH AT BEDTIME ..TAKE THIS IN ADDITION TO 240 MG IN THE MORNING 01/13/2015 07/13/2015 Inactive Lasix 20 mg tablet RxNorm: 262255 TAKE 2 TABLETS BY MOUTH EVERY MORNING AND 1 TABLET BY MOUTH AT 3PM 01/08/20152014 Inactive fluconazole 150 mg tablet RxNorm: 792110 1 Tablet(s) PO daily 01/01/2015 01/05/2015 Inactive hydrocodone 7.5 mg-acetaminophen 325 mg tablet RxNorm: 298915 1 Tablet(s) PO q 6 hours prn for pain 01/01/2015 01/28/2015 Inactive colestipol 1 gram tablet RxNorm: 9507233 1 TABLET(S) PO BID TAKE 1 TABLET BY MOUTH TWICE DAILY 12/18/2014 06/15/2015 Inactive colestipol 1 gram tablet RxNorm: 5023911 1 TABLET(S) PO BID TAKE 1 TABLET BY MOUTH TWICE DAILY 12/18/2014 09/13/2015 Inactive Lasix 20 mg tablet RxNorm: 543877 TAKE 2 TABLETS BY MOUTH EVERY MORNING AND 2 TABLETS AND AT 3PM 12/11/2014 12/25/2014 Inactive cyclobenzaprine 10 mg tablet RxNorm: 642317 TABLET(S) 1 TABLET(S) PO NEEDED TAKE 1 TABLET BY MOUTH EVERY 8 HOURS NEEDED 12/11/2014 05/31/2017 Inactive Lasix 20 mg tablet RxNorm: 530548 Tablet(s) TABLET(S) PO TAKE 2 TABLETS BY MOUTH EVERY MORNING AND 1 TABLET BY MOUTH AT 3 PM 12/10/2014 12/10/2014 Inactive fill early- pt lost them cyclobenzaprine 10 mg tablet RxNorm: 527201 Tablet(s) TABLET(S) 1 TABLET(S) PO NEEDED TAKE 1 TABLET BY MOUTH EVERY 8 HOURS NEEDED 201402/15/2015 Inactive early fill- pt lost med cyclobenzaprine 10 mg tablet RxNorm: 749479 TABLET(S) 1 TABLET(S) PO NEEDED TAKE 1 TABLET BY MOUTH EVERY 8 HOURS NEEDED 12/02/2014 12/09/2014 Inactive hydrocodone 7.5 mg-acetaminophen 325 mg tablet RxNorm: 540230 1 Tablet(s) PO q 6 hours prn for pain 12/01/2014 12/30/2014 Inactive diltiazem ER (XR/XT) 240 mg capsule,extended release, controlled RxNorm: 240041 TAKE 1 CAPSULE BY MOUTH DAILY 11/30/2014 07/13/2015 Inactive Xanax 0.5 mg tablet RxNorm: 206773 1 Tablet(s) PO TID PRN as needed 11/19/2014 11/19/2014 Inactive (Appended: Controlled substance eRx refill - RxReferenceNumber: [id number]|1|0|1) Xanax 0.5 mg tablet RxNorm: 451159 TAKE 1 TABLET BY MOUTH THREE TIMES DAILY 11/19/2014 12/18/2014 Inactive Toprol XL 100 mg tablet,extended release RxNorm: 773410 TAKE 1 TABLET BY MOUTH TWICE DAILY 11/06/2014 07/15/2015 Inactive Diflucan 150 mg tablet RxNorm: 932498 1 Tablet(s) PO every other day x7 doses 11/05/2014 11/07/2014 Inactive omeprazole 20 mg capsule,delayed release RxNorm: 961095 1 Capsule(s) PO daily TAKE 1 CAPSULE BY MOUTH TWICE DAILY 11/04/2014 02/01/2015 Inactive cyclobenzaprine 10 mg tablet RxNorm: 735780 TABLET(S) 1 TABLET(S) PO NEEDED TAKE 1 TABLET BY MOUTH EVERY 8 HOURS NEEDED 10/28/2014 12/01/2014 Inactive hydrocodone 7.5 mg-acetaminophen 325 mg tablet RxNorm: 385391 1 Tablet(s) PO q 6 hours prn for pain 10/21/2014 11/19/2014 Inactive gabapentin 600 mg tablet RxNorm: 270382 1.5 Tablet(s) PO TID 04/30/2015 Inactive Xanax 0.5 mg tablet RxNorm: 277724 Tablet(s) TAKE 1 TABLET BY MOUTH THREE TIMES DAILY 10/01/2014 10/30/2014 Inactive (Response to an electronic controlled substance refill request - RxReferenceNumber: [id number]|1|0|1) Xanax 0.25 mg tablet RxNorm: 286305 1 Tablet(s) PO Q8 PRN as needed 09/30/2014 09/30/2014 Inactive Lasix 20 mg tablet RxNorm: 185853 Tablet(s) TAKE 2 TABLETS BY MOUTH EVERY MORNING AND 2 TABLETS BY MOUTH AT 3 PM 09/30/2014 11/12/2014 Inactive Victoza 3-Babak 0.6 mg/0.1 mL (18 mg/3 mL) subcutaneous pen injector RxNorm: 483575 1.2 MILLIGRAM(S) SQ DAILY 0.6 X 2 WEEKS THEN INCREASE TO 1.2MG DAILY 09/26/2014 04/13/2015 Inactive Xanax 0.5 mg tablet RxNorm: 068444 TAKE 1 TABLET BY MOUTH THREE TIMES DAILY 09/25/2014 09/30/2014 Inactive (Response to an electronic controlled substance refill request - RxReferenceNumber: [id number]|1|0|1) Zofran 4 mg tablet RxNorm: 782765 TAKE 1 TABLET BY MOUTH EVERY 4 TO 6 HOURS NEEDED 09/25/2014 09/27/2014 Inactive hydrocodone 7.5 mg-acetaminophen 325 mg tablet RxNorm: 223959 1 Tablet(s) PO q 6 hours prn for pain 09/19/2014 10/18/2014 Inactive cyclobenzaprine 10 mg tablet RxNorm: 658562 TABLET(S) 1 TABLET(S) PO NEEDED TAKE 1 TABLET BY MOUTH EVERY 8 HOURS NEEDED 09/15/2014 10/27/2014 Inactive Lasix 20 mg tablet RxNorm: 991480 Tablet(s) TAKE 2 TABLETS BY MOUTH EVERY MORNING AND 2 TABLETS BY MOUTH AT 3 PM 09/08/2014 09/29/2014 Inactive Lasix 20 mg tablet RxNorm: 449401 TAKE 2 TABLETS BY MOUTH EVERY MORNING AND 2 TABLETS BY MOUTH AT 3 PM 08/21/20142014 Inactive hydrocodone 7.5 mg-acetaminophen 325 mg tablet RxNorm: 897874 1 Tablet(s) PO q 6 hours prn for pain 08/21/2014 09/18/2014 Inactive Diflucan 150 mg tablet RxNorm: 117756 1 Tablet(s) PO every other day 08/15/2014 08/17/2014 Inactive cyclobenzaprine 10 mg tablet RxNorm: 742932 Tablet(s) 1 TABLET(S) PO NEEDED TAKE 1 TABLET BY MOUTH EVERY 8 HOURS NEEDED 08/12/2014 09/14/2014 Inactive Zofran 4 mg tablet RxNorm: 671642 TAKE 1 TABLET BY MOUTH EVERY 4 TO 6 HOURS NEEDED 07/31/2014 08/02/2014 Inactive Effexor XR 37.5 mg capsule,extended release RxNorm: 040408 CAPSULE(S) PO TAKE 2 CAPSULES BY MOUTH EVERY MORNING AND 1 CAPSULE BY MOUTH EVERY NIGHT AT BEDTIME 07/28/2014 02/15/2016 Inactive Lasix 20 mg tablet RxNorm: 283310 TAKE 2 TABLETS BY MOUTH EVERY MORNING AND 2 TABLETS BY MOUTH AT 3 PM 07/22/20142014 Inactive Diflucan 150 mg tablet RxNorm: 530388 1 Tablet(s) PO daily 06/201407/23/2014 Inactive hydrocodone 7.5 mg-acetaminophen 325 mg tablet RxNorm: 843930 1 Tablet(s) PO q 6 hours prn for pain 07/14/2014 08/12/2014 Inactive Synthroid 88 mcg tablet RxNorm: 400099 1 TABLET(S) PO DAILY 10/11/2014 Inactive Effexor XR 37.5 mg capsule,extended release RxNorm: 977969 Capsule(s) PO TAKE 2 CAPSULES BY MOUTH EVERY MORNING AND 1 CAPSULE BY MOUTH EVERY NIGHT AT BEDTIME 07/07/2014 04/09/2015 Inactive Effexor XR 37.5 mg capsule,extended release RxNorm: 721227 TAKE 2 CAPSULES BY MOUTH EVERY MORNING AND 1 CAPSULE BY MOUTH EVERY NIGHT AT BEDTIME 07/07/2014 01/02/2015 Inactive WelChol 625 mg tablet RxNorm: 891349 3 TABLET(S) PO BID 201410/04/2014 Inactive WelChol 625 mg tablet RxNorm: 213013 3 Tablet(s) PO BID 201402/01/2015 Inactive Zofran 4 mg tablet RxNorm: 340037 TAKE 1 TABLET BY MOUTH EVERY 4 TO 6 HOURS NEEDED 07/03/2014 07/05/2014 Inactive Lasix 20 mg tablet RxNorm: 324754 TAKE 2 TABLETS BY MOUTH EVERY MORNING AND 2 TABLETS BY MOUTH AT 3 PM 06/26/20142014 Inactive Diflucan 150 mg tablet RxNorm: 239429 1 Tablet(s) PO daily 06/19/2014 Inactive Promethazine VC 6.25 mg-5 mg/5 mL syrup RxNorm: 6646284 1-2 Teaspoon(s) PO Q6 PRN as needed 06/12/2014 07/21/2015 Inactive hydrocodone 7.5 mg-acetaminophen 325 mg tablet RxNorm: 664485 1 Tablet(s) PO q 6 hours prn for pain 06/03/2014 07/02/2014 Inactive Levaquin 500 mg tablet RxNorm: 741030 1 Tablet(s) PO daily 01/201506/05/2014 Inactive cyclobenzaprine 10 mg tablet RxNorm: 250377 Tablet(s) 1 TABLET(S) PO NEEDED TAKE 1 TABLET BY MOUTH EVERY 8 HOURS NEEDED 05/26/2014 No Stop Date Active cyclobenzaprine 10 mg tablet RxNorm: 994551 1 TABLET(S) PO NEEDED TAKE 1 TABLET BY MOUTH EVERY 8 HOURS NEEDED 05/26/2014 08/11/2014 Inactive Lasix 20 mg tablet RxNorm: 495925 Tablet(s) TABLET(S) PO TAKE 2 TABLETS BY MOUTH EVERY MORNING AND 2 TABLET BY MOUTH AT 3 PM 05/12/2014 06/25/2014 Inactive Combivent Respimat 20 mcg-100 mcg/actuation solution for inhalation RxNorm: 1827011 INHALE 1 PUFF BY MOUTH FOUR TIMES DAILY 05/12/2014 11/07/2014 Inactive fluconazole 150 mg tablet RxNorm: 474879 1 Tablet(s) PO UD 05/12/2014 Inactive 1 tab every other day x 5 doses Activella 0.5 mg-0.1 mg tablet RxNorm: 4114093 1 TABLET(S) PO DAILY TAKE 1 TABLET BY MOUTH DAILY FOR MENOPAUSAL SYMPTOM 05/02/2014 09/21/2015 Inactive hydrocodone 7.5 mg-acetaminophen 300 mg tablet RxNorm: 364502 Tablet(s) PO TAKE 1 TABLET BY MOUTH EVERY 6 HOURS NEEDED FOR PAIN 04/21/2014 06/03/2014 Inactive ( Appended: Controlled substance eRx refill - RxReferenceNumber: [id number]|1|0|1 ) Levaquin 500 mg tablet RxNorm: 633486 1 Tablet(s) PO daily 04/21/2014 Inactive Diflucan 150 mg tablet RxNorm: 886437 1 Tablet(s) PO every other day x 4 doses 04/10/2014 06/16/2014 Inactive Lasix 20 mg tablet RxNorm: TAKE 2 TABLETS BY MOUTH EVERY MORNING AND 1 TABLET BY MOUTH AT 3 PM 04/10/20142013 Inactive potassium chloride ER 10 mEq tablet,extended release RxNorm: 988916 1 TABLET(S) PO QDAY PRN TAKE WITH LASIX 04/09/2014 Inactive Levaquin 250 mg tablet RxNorm: 831746 1 Tablet(s) PO daily 08/201304/07/2014 Inactive 2 tabs today then 1 tab daily until gone atorvastatin 40 mg tablet RxNorm: 692849 1 Tablet(s) daily 1 TABLET(S) PO DAILY 03/25/2014 04/10/2016 Inactive TAKE 1 TABLET BY MOUTH DAILY (THIS IS AN INCREASE IN DOSAGE) Zofran 4 mg tablet RxNorm: 459478 1 Tablet(s) PO Q4-6H 201307/02/2014 Inactive Xanax 0.5 mg tablet RxNorm: 494156 TAKE 1 TABLET BY MOUTH THREE TIMES DAILY NEEDED 03/19/2014 04/17/2014 Inactive (Response to an electronic controlled substance refill request - RxReferenceNumber: [id number]|1|0|1) hydrocodone 7.5 mg-acetaminophen 300 mg tablet RxNorm: 255729 Tablet(s) PO TAKE 1 TABLET BY MOUTH EVERY 6 HOURS NEEDED FOR PAIN 03/19/2014 04/20/2014 Inactive ( Appended: Controlled substance eRx refill - RxReferenceNumber: [id number]|1|0|1 ) atorvastatin 40 mg tablet RxNorm: 435149 1 TABLET(S) PO DAILY 03/10/2014 03/24/2014 Inactive TAKE 1 TABLET BY MOUTH DAILY (THIS IS AN INCREASE IN DOSAGE) WelChol 625 mg tablet RxNorm: 888542 3 Tablet(s) PO BID 201303/06/2014 Inactive WelChol 625 mg tablet RxNorm: 417135 3 Tablet(s) PO BID 201307/04/2014 Inactive Lasix 20 mg tablet RxNorm: 107605 Tablet(s) TABLET(S) PO TAKE 2 TABLETS BY MOUTH EVERY MORNING AND 2 TABLET BY MOUTH AT 3 PM 03/03/2014 05/11/2014 Inactive Lasix 20 mg tablet RxNorm: 617436 TABLET(S) PO TAKE 2 TABLETS BY MOUTH EVERY MORNING AND 1 TABLET BY MOUTH AT 3 PM 02/20/2014 03/02/2014 Inactive gabapentin 600 mg tablet RxNorm: 938845 1.5 Tablet(s) PO TID 09/16/2014 Inactive Synthroid 88 mcg tablet RxNorm: 533801 1 TABLET(S) PO DAILY 05/18/2014 Inactive cyclobenzaprine 10 mg tablet RxNorm: 979494 1 TABLET(S) PO NEEDED TAKE 1 TABLET BY MOUTH EVERY 8 HOURS NEEDED 02/18/2014 05/25/2014 Inactive doxycycline hyclate 100 mg tablet RxNorm: 429214 1 Tablet(s) PO BID 02/13/2014 02/22/2014 Inactive Bactroban 2 % topical ointment RxNorm: 004532 1 Application TOP BID 02/13/2014 03/12/2014 Inactive Victoza 3-Babak 0.6 mg/0.1 mL (18 mg/3 mL) subcutaneous pen injector RxNorm: 772611 1.2 MILLIGRAM(S) SQ DAILY 0.6 X 2 WEEKS THEN INCREASE TO 1.2MG DAILY 02/10/2014 05/10/2014 Inactive albuterol sulfate 1.25 mg/3 mL solution for nebulization RxNorm: 831764 3 MILLILITER(S) INH TID 02/07/20142014 Inactive 1 box Victoza 3-Babak 0.6 mg/0.1 mL (18 mg/3 mL) subcutaneous pen injector RxNorm: 626395 1.8 Milligram(s) SQ daily 0.6 x 2 weeks then increase to 1.2mg daily 01/27/2014 05/26/2014 Inactive Levemir Flexpen 100 unit/mL (3 mL) solution subcutaneous insulin pen RxNorm: 729327 5units sq at hs, increase by 3 Unit(s) SQ at hs every 3days, goal FSBS 170 or less, do not increase above 20units, call doctor with report 01/27/2014 05/26/2014 Inactive hydrocodone 7.5 mg-acetaminophen 300 mg tablet RxNorm: 305303 Tablet(s) PO TAKE 1 TABLET BY MOUTH EVERY 6 HOURS NEEDED FOR PAIN 01/24/2014 03/18/2014 Inactive ( Appended: Controlled substance eRx refill - RxReferenceNumber: [id number]|1|0|1 ) Xanax 0.5 mg tablet RxNorm: 053544 1 Tablet(s) PO TID PRN as needed 01/24/2014 09/21/2014 Inactive (Appended: Controlled substance eRx refill - RxReferenceNumber: [id number]|1|0|1) Xanax 0.5 mg tablet RxNorm: 921289 TAKE 1 TABLET BY MOUTH THREE TIMES DAILY NEEDED 01/23/2014 02/21/2014 Inactive (Response to an electronic controlled substance refill request - RxReferenceNumber: [id number]|1|0|1) hydrocodone 5 mg-acetaminophen 325 mg tablet RxNorm: 099485 TAKE 1 TABLET BY MOUTH EVERY 6 HOURS NEEDED FOR PAIN 01/21/2014 02/19/2014 Inactive (Response to an electronic controlled substance refill request - RxReferenceNumber: [id number]| 351024|1|0|1) Lasix 20 mg tablet RxNorm: 242348 TAKE 2 TABLETS BY MOUTH EVERY MORNING AND 1 TABLET BY MOUTH AT 3 PM 01/17/20142013 Inactive cyclobenzaprine 10 mg tablet RxNorm: 317531 1 Tablet(s) PO as needed TAKE 1 TABLET BY MOUTH EVERY 8 HOURS NEEDED 01/13/2014 02/17/2014 Inactive Anusol-HC 25 mg suppository RxNorm: 6547734 1 SUPPOSITORY RTL PRN ONE PER RECTUM NEEDED, UP TO TWICE DAILY FOR HEMORRHOID, NO MORE THAN 7 DAYS IN A ROW 01/10/2014 02/06/2014 Inactive Activella 0.5 mg-0.1 mg tablet RxNorm: 3385132 1 Tablet(s) PO daily TAKE 1 TABLET BY MOUTH DAILY FOR MENOPAUSAL SYMPTOM 01/08/2014 05/01/2014 Inactive gabapentin 600 mg tablet RxNorm: 968516 1.5 Tablet(s) PO TID 02/18/2014 Inactive gabapentin 600 mg tablet RxNorm: 588254 1.5 Tablet(s) PO TID 01/01/2014 Inactive hydrocodone 7.5 mg-acetaminophen 300 mg tablet RxNorm: 374541 Tablet(s) PO TAKE 1 TABLET BY MOUTH EVERY 6 HOURS NEEDED FOR PAIN 12/12/2013 01/23/2014 Inactive ( Appended: Controlled substance eRx refill - RxReferenceNumber: [id number]|1|0|1 ) Levaquin 250 mg tablet RxNorm: 569421 1 Tablet(s) PO daily 12/18/2013 Inactive 2 tabs today then 1 tab daily until gone Diflucan 150 mg tablet RxNorm: 477761 1 Tablet(s) PO daily 12/16/2013 Inactive do not stat until levaquin is completed Cartia XT 180 mg capsule,extended release RxNorm: 201249 1 CAPSULE(S) PO DAILY TAKE 1 CAPSULE BY MOUTH AT BEDTIME ..TAKE THIS IN ADDITION TO 240 MG IN THE MORNING 12/12/2013 12/06/2014 Inactive diltiazem ER (XR/XT) 240 mg capsule,extended release, controlled RxNorm: 456895 1 Capsule(s) PO daily TAKE 1 CAPSULE BY MOUTH EVERY DAY 11/28/2014 Inactive Effexor XR 37.5 mg capsule,extended release RxNorm: 037910 Capsule(s) PO TAKE 2 CAPSULES BY MOUTH EVERY MORNING AND 1 CAPSULE BY MOUTH EVERY NIGHT AT BEDTIME 12/04/2013 07/06/2014 Inactive Lasix 20 mg tablet RxNorm: TABLET(S) PO TAKE 2 TABLETS BY MOUTH EVERY MORNING AND 1 TABLET BY MOUTH AT 3 PM 12/04/2013 12/09/2014 Inactive Voltaren 1 % topical gel RxNorm: 136753 4 Gram(s) TOP QID 11/2703/26/2014 Inactive Cartia XT 180 mg capsule,extended release RxNorm: 884225 1 Capsule(s) PO daily TAKE 1 CAPSULE BY MOUTH AT BEDTIME ..TAKE THIS IN ADDITION TO 240 MG IN THE MORNING 11/27/2013 01/12/2015 Inactive Lasix 20 mg tablet RxNorm: TABLET(S) PO TAKE 2 TABLETS BY MOUTH EVERY MORNING AND 1 TABLET BY MOUTH AT 3 PM 11/26/2013 02/19/2014 Inactive colestipol 1 gram tablet RxNorm: 2104294 1 Tablet(s) PO BID TAKE 1 TABLET BY MOUTH TWICE DAILY 11/26/2013 11/20/2014 Inactive cyclobenzaprine 10 mg tablet RxNorm: 480483 Tablet(s) PO TAKE 1 TABLET BY MOUTH EVERY 8 HOURS NEEDED 11/21/20132013 Inactive Diflucan 150 mg tablet RxNorm: 258947 1 Tablet(s) PO daily TAKE 1 TABLET BY MOUTH EVERY OTHER DAY FOR 8 DOSES 11/14/201306/2013 Inactive peak flow meter-inh assist dev kit RxNorm: 1 dose Miscellaneous PRN 11/14/2013 10/27/2017 Inactive Effexor XR 37.5 mg capsule,extended release RxNorm: 443955 Capsule(s) PO TAKE 2 CAPSULES BY MOUTH EVERY MORNING AND 1 CAPSULE BY MOUTH EVERY NIGHT AT BEDTIME 11/04/2013 12/03/2013 Inactive Anusol-HC 25 mg suppository RxNorm: 6209533 1 Suppository RTL PRN one per rectum as needed, up to twice daily for hemorrhoid, no more than 7 days in a row 10/23/2013 10/22/2013 Inactive Anusol-HC 25 mg suppository RxNorm: 5136689 1 Suppository RTL PRN one per rectum as needed, up to twice daily for hemorrhoid, no more than 7 days in a row 10/23/2013 01/09/2014 Inactive Activella 0.5 mg-0.1 mg tablet RxNorm: 8362573 Tablet(s) PO TAKE 1 TABLET BY MOUTH DAILY FOR MENOPAUSAL SYMPTOM 10/21/2013 01/07/2014 Inactive cyclobenzaprine 10 mg tablet RxNorm: 011844 Tablet(s) PO TAKE 1 TABLET BY MOUTH EVERY 8 HOURS NEEDED 10/21/20132013 Inactive Lasix 20 mg tablet RxNorm: 811196 Tablet(s) PO TAKE 2 TABLETS BY MOUTH EVERY MORNING AND 1 TABLET BY MOUTH AT 3 PM 10/17/2013 02/25/2016 Inactive Bactroban 2 % topical ointment RxNorm: 062387 1 Application TOP BID 10/10/2013 11/06/2013 Inactive Zofran 4 mg tablet RxNorm: 053659 1 Tablet(s) PO Q4-6H 201303/20/2014 Inactive Bactroban 2 % topical ointment RxNorm: 363586 1 Application TOP BID 09/27/2013 10/09/2013 Inactive hydrocodone 5 mg-acetaminophen 325 mg tablet RxNorm: 016543 Tablet(s) PO TAKE 1 TABLET BY MOUTH EVERY 6 HOURS NEEDED FOR PAIN 09/26/2013 12/11/2013 Inactive ( Appended: Controlled substance eRx refill - RxReferenceNumber: [id number]|1|0|1 ) hydrocodone 5 mg-acetaminophen 325 mg tablet RxNorm: 105281 1 Tablet(s) PO Q6 PRN 09/26/2013 01/24/2014 Inactive cyclobenzaprine 10 mg tablet RxNorm: 981008 Tablet(s) PO TAKE 1 TABLET BY MOUTH EVERY 8 HOURS NEEDED 09/16/2013 No Stop Date Active omeprazole 20 mg capsule,delayed release RxNorm: 336297 Capsule(s) PO TAKE 1 CAPSULE BY MOUTH TWICE DAILY 09/02/2013 Inactive Lasix 20 mg tablet RxNorm: 148805 Tablet(s) PO TAKE 2 TABLETS BY MOUTH EVERY MORNING AND 1 TABLET BY MOUTH AT 3 PM 09/02/2013 04/10/2016 Inactive Diflucan 150 mg tablet RxNorm: 963188 Tablet(s) PO TAKE 1 TABLET BY MOUTH EVERY OTHER DAY FOR 8 DOSES 08/29/20132013 Inactive Effexor XR 37.5 mg capsule,extended release RxNorm: 377878 Capsule(s) PO TAKE 2 CAPSULES BY MOUTH EVERY MORNING AND 1 CAPSULE BY MOUTH EVERY NIGHT AT BEDTIME 08/29/2013 11/03/2013 Inactive diltiazem ER (XR/XT) 240 mg capsule,extended release, controlled RxNorm: 833487 Capsule(s) PO TAKE 1 CAPSULE BY MOUTH EVERY DAY 201312/03/2013 Inactive Xanax 0.5 mg tablet RxNorm: 460161 1 Tablet(s) PO TID PRN 11/2013 No Stop Date Active (Appended: Controlled substance eRx refill - RxReferenceNumber: [id number]| [id number]|1|0|1) colestipol 1 gram tablet RxNorm: 7173513 Tablet(s) PO TAKE 1 TABLET BY MOUTH TWICE DAILY 08/26/2013 11/25/2013 Inactive Victoza 3-Babak 0.6 mg/0.1 mL (18 mg/3 mL) subcutaneous pen injector RxNorm: 141772 1.2 Milligram(s) SQ daily 0.6 x 2 weeks then increase to 1.2mg daily 08/19/2013 12/16/2013 Inactive Synthroid 88 mcg tablet RxNorm: 977304 1 Tablet(s) PO daily 12/09/2013 Inactive Lasix 20 mg tablet RxNorm: 415923 Tablet(s) PO TAKE 2 TABLETS BY MOUTH EVERY MORNING AND 2 TABLETS BY MOUTH AT 3 PM 08/12/2013 10/18/2016 Inactive Xanax 0.5 mg tablet RxNorm: 766257 1 Tablet(s) PO TID PRN No Stop Date Active (Appended: Controlled substance [id number]| 390413|1|0|1) Lasix 20 mg tablet RxNorm: Tablet(s) PO TAKE 2 TABLETS BY MOUTH EVERY MORNING AND 1 TABLET BY MOUTH AT 3 PM 08/07/2013 08/11/2013 Inactive Voltaren 1 % topical gel RxNorm: 067400 4 Gram(s) TOP QID 08/0111/26/2013 Inactive Zyvox 600 mg tablet RxNorm: 814363 1 Tablet(s) PO BID 201307/27/2013 Inactive please call the office is this is too expensive for the pt Zyvox 600 mg tablet RxNorm: 308912 1 Tablet(s) PO BID 201307/17/2013 Inactive hydrocodone 5 mg-acetaminophen 325 mg tablet RxNorm: 0596924 1 Tablet(s) PO Q6 PRN 07/15/2013 09/26/2013 Inactive Zofran 4 mg tablet RxNorm: 018117 1 Tablet(s) PO Q4-6H 201310/02/2013 Inactive Lasix 20 mg tablet RxNorm: Tablet(s) PO TAKE 2 TABLETS BY MOUTH EVERY MORNING AND 1 TABLET BY MOUTH AT 3 PM 07/11/2013 10/18/2016 Inactive cyclobenzaprine 10 mg tablet RxNorm: 794752 1 Tablet(s) PO Q8 PRN 06/27/2013 08/25/2013 Inactive gabapentin 600 mg tablet RxNorm: 424073 1.5 Tablet(s) PO TID 01/02/2014 Inactive Lasix 20 mg tablet RxNorm: 954218 Tablet(s) PO TAKE 2 TABLETS BY MOUTH EVERY MORNING AND 1 TABLET BY MOUTH AT 3 PM 06/17/2013 07/10/2013 Inactive hydrocodone 5 mg-acetaminophen 325 mg tablet RxNorm: 490877 1 Tablet(s) PO Q6 PRN 06/10/2013 07/14/2013 Inactive hydrocortisone 2.5 % rectal cream RxNorm: 495711 1 Suppository RTL BID PRN 06/10/2013 06/29/2013 Inactive Flexeril 10 mg tablet RxNorm: 153564 1 Tablet(s) PO Q8 PRN 06/0406/26/2013 Inactive diltiazem ER (XR/XT) 240 mg capsule,extended release, controlled RxNorm: 119868 Capsule(s) PO TAKE 1 CAPSULE BY MOUTH EVERY DAY 201310/26/2017 Inactive omeprazole 20 mg capsule,delayed release RxNorm: 818911 Capsule(s) PO TAKE 1 CAPSULE BY MOUTH TWICE DAILY 05/24/2013 Inactive colestipol 1 gram tablet RxNorm: 9062992 Tablet(s) PO TAKE 1 TABLET BY MOUTH TWICE DAILY 05/23/2013 04/21/2016 Inactive Januvia 100 mg tablet RxNorm: 439094 1 Tablet(s) PO daily 201308/18/2013 Inactive Activella 0.5 mg-0.1 mg tablet RxNorm: 526946 Tablet(s) PO TAKE 1 TABLET BY MOUTH DAILY FOR MENOPAUSAL SYMPTOM 05/17/2013 Inactive Xanax 0.5 mg tablet RxNorm: 334845 1 Tablet(s) PO TID PRN 08/06/2013 Inactive (Appended: Controlled substance eRx refill - RxReferenceNumber: [id number]| [id number]|1|0|1) Kenalog 40 mg/mL suspension for injection RxNorm: 4684253 Milliliter(s) Inj 05/07/2013 05/07/2013 Inactive levofloxacin 500 mg tablet RxNorm: 510216 1 Tablet(s) PO daily pt to take 500mg on day#1, 3, 5, 7 and 1/2 tablet on days 2, 4, 6, and 8 05/0705/14/2013 Inactive Lyrica 50 mg capsule RxNorm: 129351 1 Capsule(s) PO TID 201206/26/2013 Inactive hydrocodone 5 mg-acetaminophen 500 mg tablet RxNorm: 590698 1 Tablet(s) PO Q6 PRN 04/22/2013 06/09/2013 Inactive Zofran 4 mg tablet RxNorm: 152557 1 Tablet(s) PO Q4-6H 201207/14/2013 Inactive Zofran 4 mg tablet RxNorm: 654265 1 Tablet(s) PO Q6 PRN 04/0404/08/2013 Inactive hydrocodone 5 mg-acetaminophen 500 mg tablet RxNorm: 982130 1 Tablet(s) PO Q6 PRN 03/21/2013 04/21/2013 Inactive Diflucan 150 mg tablet RxNorm: 737004 1 Tablet(s) PO every other day 1 pill po every other day x 8 doses 03/19/201306/26 Inactive potassium chloride ER 10 mEq tablet,extended release RxNorm: 389691 1 Tablet(s) PO QDAY PRN take with lasix 03/07/201302/2014 Inactive potassium chloride ER 10 mEq tablet,extended release RxNorm: 381469 1 Tablet(s) PO QDAY PRN take with lasix 03/04/2013 Inactive fluconazole 150 mg tablet RxNorm: 611099 1 Tablet(s) PO daily 03/01/2013 02/28/2013 Inactive fluconazole 150 mg tablet RxNorm: 822415 1 Tablet(s) PO daily 03/01/2013 03/05/2013 Inactive Combivent 18 mcg-103 mcg/actuation Aerosol Inhaler RxNorm: 070092 2 Puff(s) INH QID 02/12/2013 02/12/2013 Inactive Zofran 4 mg tablet RxNorm: 555680 1 Tablet(s) PO Q6 PRN 02/1104/03/2013 Inactive Lasix 20 mg tablet RxNorm: 138352 1 Tablet(s) PO BID one pill in morning and one pill in afternoon (3pm) 02/04/2013 Inactive Xopenex HFA 45 mcg/actuation Aerosol Inhaler RxNorm: 207257 2 INH QID 01/29/2013 09/21/2015 Inactive Effexor XR 37.5 mg capsule,extended release RxNorm: 137731 2 q am and 1 at hs Capsule(s) PO TAKE 2 CAPSULES BY MOUTH EVERY MORNING AND 1 CAPSULE EVERY NIGHT AT BEDTIME 01/29/2013 02/15/2016 Inactive fluconazole 150 mg tablet RxNorm: 656655 1 Tablet(s) PO daily 01/29/2013 02/02/2013 Inactive hydrocodone 5 mg-acetaminophen 500 mg tablet RxNorm: 315830 1 Tablet(s) PO Q6 PRN 01/29/2013 03/20/2013 Inactive Effexor XR 37.5 mg capsule,extended release RxNorm: 821933 Capsule(s) PO 01/29/2013 08/28/2013 Inactive TAKE 2 CAPSULES BY MOUTH EVERY MORNING AND 1 CAPSULE EVERY NIGHT AT BEDTIME doxycycline hyclate 100 mg tablet RxNorm: 782300 1 Tablet(s) PO BID 01/01/2013 01/10/2013 Inactive doxycycline hyclate 100 mg tablet RxNorm: 319800 1 Tablet(s) PO BID 01/01/2013 12/31/2012 Inactive Synthroid 75 mcg tablet RxNorm: 594737 1 Tablet(s) PO daily 06/29/2013 Inactive Synthroid 75 mcg tablet RxNorm: 596852 1 Tablet(s) PO daily 12/31/2012 Inactive Xanax 0.5 mg tablet RxNorm: 163402 Tablet(s) PO TAKE 1/2 TO 1 TABLET BY MOUTH EVERY 8 HOURS NEEDED FOR ANXIETY 12/27/2012 05/06/2013 Inactive (Appended: Controlled substance eRx refill - RxReferenceNumber: [id number]|1|0|1) Lasix 20 mg tablet RxNorm: 249418 1 Tablet(s) PO daily 201202/03/2013 Inactive Santyl 250 unit/gram Topical Ointment RxNorm: 4361265 1 Application TOP daily 12/20/2012 12/29/2012 Inactive Levaquin 500 mg tablet RxNorm: 060768 1 Tablet(s) PO daily 05/201212/26/2012 Inactive acyclovir 400 mg tablet RxNorm: 100819 1 Tablet(s) PO TID 12/0312/09/2012 Inactive acyclovir 400 mg tablet RxNorm: 934216 1 Tablet(s) PO TID 12/0312/02/2012 Inactive fluconazole 150 mg tablet RxNorm: 156086 1 Tablet(s) PO daily 11/26/2012 11/30/2012 Inactive Effexor XR 37.5 mg capsule,extended release RxNorm: 757515 Capsule(s) PO TAKE 2 CAPSULES BY MOUTH EVERY MORNING AND 1 CAPSULE EVERY NIGHT AT BEDTIME 11/14/2012 01/28/2013 Inactive albuterol sulfate 1.25 mg/3 mL solution for nebulization RxNorm: 981799 3 Milliliter(s) INH TID 10/29/20122012 Inactive 1 box Cartia XT 180 mg capsule,extended release RxNorm: 416698 1 Capsule(s) PO daily TAKE 1 CAPSULE BY MOUTH AT BEDTIME ..TAKE THIS IN ADDITION TO 240 MG IN THE MORNING 10/29/2012 11/26/2013 Inactive acyclovir 800 mg tablet RxNorm: 046099 1 Tablet(s) PO BID 10/2911/04/2012 Inactive Diflucan 150 mg tablet RxNorm: 551598 1 Tablet(s) PO daily 10/14/2012 Inactive TAKE 1 TABLET BY MOUTH EVERY DAY Toprol XL 100 mg tablet,extended release RxNorm: 847050 1 Tablet(s) PO BID 10/11/2012 09/05/2013 Inactive Zithromax Z-Babak 250 mg tablet RxNorm: 707437 Tablet(s) PO UD as directed. 1 refill , please take back to back 10/05/2012 No Stop Date Active Kenalog 40 mg/mL Susp for Injection RxNorm: 7725391 1 Milliliter(s) Inj QID 09/21/2012 05/07/2013 Inactive fluconazole 150 mg tablet RxNorm: 926335 1 Tablet(s) PO every other day x 5 doses 09/12/2012 11/25/2012 Inactive levothyroxine 50 mcg tablet RxNorm: 708351 1 Tablet(s) PO daily 09/06/2012 12/31/2012 Inactive atorvastatin 40 mg tablet RxNorm: 994030 1 Tablet(s) PO daily 09/06/2012 08/31/2013 Inactive TAKE 1 TABLET BY MOUTH DAILY (THIS IS AN INCREASE IN DOSAGE) Xanax 0.5 mg tablet RxNorm: 617117 Tablet(s) PO TAKE 1/2 TO 1 TABLET BY MOUTH EVERY 8 HOURS NEEDED FOR ANXIETY 08/27/2012 12/26/2012 Inactive (Appended: Controlled substance eRx refill - RxReferenceNumber: [id number]|1|0|1) Zofran 4 mg tablet RxNorm: 994262 1 Tablet(s) PO Q6 PRN 08/1302/10/2013 Inactive Cipro 500 mg tablet RxNorm: 660351 1 Tablet(s) PO BID 201208/07/2012 Inactive Cipro 500 mg tablet RxNorm: 838709 1 Tablet(s) PO BID 201208/12/2012 Inactive Flagyl 500 mg tablet RxNorm: 976522 1 Tablet(s) PO TID 201208/12/2012 Inactive cefdinir 300 mg capsule RxNorm: 058196 1 Capsule(s) PO BID 08/201207/29/2012 Inactive nystatin 100,000 unit/mL Oral Susp RxNorm: 210091 6 Unit(s) PO QID 07/06/2012 07/15/2012 Inactive Kenalog 40 mg/mL Susp for Injection RxNorm: 5021008 1 Milliliter(s) Inj 07/06/2012 07/06/2012 Inactive Zithromax 500 mg tablet RxNorm: 9128281 1 Tablet(s) PO daily 07/10/2012 Inactive metformin 850 mg tablet RxNorm: 035915 1/2 Tablet(s) PO TID 09/201208/24/2012 Inactive TAKE 1 TABLET BY MOUTH IN THE MORNING, 1/2 TABLET AT NOON, AND 1 TABLET IN THE EVENING Lyrica 50 mg capsule RxNorm: 667108 1 Capsule(s) PO TID 201206/25/2012 Inactive Diflucan 150 mg tablet RxNorm: 897574 1 Tablet(s) PO daily 05/201206/25/2012 Inactive TAKE 1 TABLET BY MOUTH EVERY DAY Levaquin 500 mg tablet RxNorm: 795119 1 Tablet(s) PO daily 06/19/2012 Inactive Pneumovax 23 25 mcg/0.5 mL Injection RxNorm: 958169 1/2 Milliliter(s) Inj 06/07/2012 06/07/2012 Inactive metformin 850 mg tablet RxNorm: 748789 1/2 Tablet(s) PO BID 06/25/2012 Inactive TAKE 1 TABLET BY MOUTH IN THE MORNING, 1/2 TABLET AT NOON, AND 1 TABLET IN THE EVENING cefdinir 300 mg capsule RxNorm: 455494 1 Capsule(s) PO BID 02/201305/30/2012 Inactive cefdinir 300 mg capsule RxNorm: 966879 1 Capsule(s) PO BID 02/201306/06/2012 Inactive prednisone 10 mg tablets in a dose pack RxNorm: 609708 Tablet(s) PO UD 6-5-4-3-2- 1 05/31/2012 05/06/2013 Inactive Cipro 500 mg tablet RxNorm: 054217 1 Tablet(s) PO BID 201206/03/2012 Inactive Xanax 0.5 mg tablet RxNorm: 204517 Tablet(s) PO TAKE 1/2 TO 1 TABLET BY MOUTH EVERY 8 HOURS NEEDED FOR ANXIETY 05/28/2012 08/27/2012 Inactive (Appended: Controlled substance eRx refill - RxReferenceNumber: [id number]|1|0|1) Cartia XT 180 mg capsule,extended release RxNorm: 598544 Capsule(s) PO TAKE 1 CAPSULE BY MOUTH AT BEDTIME ..TAKE THIS IN ADDITION TO 240 MG IN THE MORNING 05/24/2012 10/28/2012 Inactive Diflucan 150 mg tablet RxNorm: 903392 1 Tablet(s) PO daily 06/201205/26/2012 Inactive TAKE 1 TABLET BY MOUTH EVERY DAY Cartia XT 240 mg capsule,extended release RxNorm: 594749 1 Capsule(s) PO QAM 05/23/2012 09/06/2012 Inactive in addition to 180mg q pm omeprazole 20 mg capsule,delayed release RxNorm: 320909 Capsule(s) PO TAKE 1 CAPSULE BY MOUTH TWICE DAILY 05/21/2012 Inactive diltiazem ER (XR/XT) 240 mg capsule,extended release, controlled RxNorm: 045913 1 Capsule(s) PO daily TAKE ONE CAPSULE BY MOUTH EVERY DAY 05/21/2012 05/30/2013 Inactive Toprol XL 25 mg tablet,extended release RxNorm: 075889 1 Tablet(s) PO QPM take with 50mg (1/2 tab of 100mg) each evening. Continue 100mg in the morning. 05/17/2012 05/27/2012 Inactive Activella 0.5 mg-0.1 mg tablet RxNorm: 2786179 Tablet(s) PO TAKE 1 TABLET BY MOUTH DAILY FOR MENOPAUSAL SYMPTOM 05/09/2012 05/16/2013 Inactive colestipol 1 gram tablet RxNorm: 0280232 Tablet(s) PO TAKE 1 TABLET BY MOUTH TWICE DAILY 05/08/2012 04/21/2016 Inactive Kenalog 40 mg/mL Susp for Injection RxNorm: 3916401 1 Milliliter(s) Inj 05/02/2012 05/02/2012 Inactive Xanax 0.5 mg tablet RxNorm: 639010 Tablet(s) PO 04/16/2012 05/28/2012 Inactive TAKE 1/2 TO 1 TABLET BY MOUTH EVERY 8 HOURS NEEDED FOR ANXIETY (Appended: Controlled substance eRx refill - RxReferenceNumber: [id number]|1|0|1) Diflucan 150 mg tablet RxNorm: 263552 1 Tablet(s) PO daily 05/22/2012 Inactive TAKE 1 TABLET BY MOUTH EVERY DAY Cipro 500 mg tablet RxNorm: 227485 1 Tablet(s) PO BID 201104/19/2012 Inactive Zithromax Z-Babak 250 mg tablet RxNorm: 447334 Tablet(s) PO UD 05/30/2012 Inactive metformin 850 mg tablet RxNorm: 384894 Tablet(s) PO take one pill by mouth in AM, 1/2 at noon, and 1 pill in the evening. 03/16/2012 06/06/2012 Inactive TAKE 1 TABLET BY MOUTH IN THE MORNING, 1/2 TABLET AT NOON, AND 1 TABLET IN THE EVENING Xanax 0.5 mg tablet RxNorm: 148113 Tablet(s) PO 03/05/2012 04/15/2012 Inactive TAKE 1/2 TO 1 TABLET BY MOUTH EVERY 8 HOURS NEEDED FOR ANXIETY (Appended: Controlled substance eRx refill - RxReferenceNumber: [id number]|1|0|1) potassium chloride ER 10 mEq tablet,extended release RxNorm: 317547 1 Tablet(s) PO QDAY PRN take with lasix 03/05/201204/2013 Inactive potassium chloride ER 10 mEq tablet,extended release RxNorm: 573356 1 Tablet(s) PO QDAY PRN take with lasix 02/28/2012 Inactive Lasix 20 mg tablet RxNorm: 627974 Tablet(s) PO QDAY PRN 02/2708/25/2012 Inactive doxycycline hyclate 100 mg capsule RxNorm: 859007 1 Capsule(s) PO BID 02/27/2012 03/04/2012 Inactive Effexor XR 37.5 mg capsule,extended release RxNorm: 216228 Capsule(s) PO 02/26/2012 01/28/2013 Inactive TAKE 2 CAPSULES BY MOUTH EVERY MORNING AND 1 CAPSULE EVERY NIGHT AT BEDTIME Lomotil 2.5 mg-0.025 mg tablet RxNorm: 7381087 Tablet(s) PO 07/201103/05/2012 Inactive 1 after each loose bm limit 4 per day doxycycline hyclate 100 mg capsule RxNorm: 558696 1 Capsule(s) PO BID 02/15/2012 02/21/2012 Inactive Diflucan 150 mg tablet RxNorm: 842247 Tablet(s) PO daily 201102/21/2012 Inactive TAKE 1 TABLET BY MOUTH EVERY DAY colestipol,micronized 1 gram tablet RxNorm: 8979623 Tablet(s) PO 02/06/2012 04/21/2016 Inactive TAKE 1 TABLET BY MOUTH TWICE DAILY Effexor XR 37.5 mg capsule,extended release RxNorm: 546883 Capsule(s) PO 02/06/2012 02/16/2016 Inactive TAKE 2 CAPSULES BY MOUTH EVERY MORNING AND 1 CAPSULE EVERY NIGHT AT BEDTIME potassium chloride ER 10 mEq tablet,extended release RxNorm: 496350 1 Tablet(s) PO QDAY PRN take with lasix 02/01/201212/2011 Inactive Levaquin 500 mg tablet RxNorm: 784631 1 Tablet(s) PO daily 04/201202/07/2012 Inactive Diflucan 150 mg tablet RxNorm: 769165 Tablet(s) PO 01/27/2012 02/14/2012 Inactive TAKE 1 TABLET BY MOUTH EVERY DAY Effexor XR 37.5 mg capsule,extended release RxNorm: 044169 Capsule(s) PO 01/05/2012 02/05/2012 Inactive TAKE 2 CAPSULES BY MOUTH EVERY MORNING , AND 1 CAPSULE BY MOUTH EVERY NIGHT AT BEDTIME Effexor XR 37.5 mg capsule,extended release RxNorm: 057419 Capsule(s) PO 12/29/2011 01/04/2012 Inactive TAKE 2 CAPSULES BY MOUTH EVERY MORNING , AND 1 CAPSULE BY MOUTH EVERY NIGHT AT BEDTIME Diflucan 150 mg tablet RxNorm: 467435 Tablet(s) PO 12/29/2011 04/09/2012 Inactive TAKE 1 TABLET BY MOUTH EVERY DAY Cipro 500 mg tablet RxNorm: 661153 1 Tablet(s) PO BID 201101/07/2012 Inactive Toprol XL 100 mg tablet,extended release RxNorm: 314900 Tablet(s) PO as doctor directed one tab in am and 1/2 at night 11/30/2011 10/10/2012 Inactive Phenergan 25 mg/mL Injection RxNorm: 759171 Milliliter(s) Inj 11/30/2011 11/30/2011 Inactive Toprol XL 100 mg 24 hr Tab RxNorm: 692492 1.5 Tablet(s) PO as doctor directed one tab in am and 1/2 at night 11/17/201102/2012 Inactive Xopenex HFA 45 mcg/actuation Aerosol Inhaler RxNorm: 236091 2 INH QID 11/08/2011 12/01/2012 Inactive Effexor XR 150 mg 24 hr Cap RxNorm: 512713 1 Capsule(s) PO daily 10/24/2011 01/04/2012 Inactive Xanax 0.5 mg tablet RxNorm: 825322 1/2-1 Tablet(s) PO Q8 PRN 10/20/2011 03/05/2012 Inactive levothyroxine 25 mcg tablet RxNorm: 949530 Tablet(s) PO 201109/05/2012 Inactive TAKE 1 TABLET BY MOUTH DAILY Xanax 0.5 mg Tab RxNorm: 662617 1/2-1 Tablet(s) PO Q8 PRN 09/26/2011 10/19/2011 Inactive potassium chloride ER 10 mEq Tab RxNorm: 219618 1 Tablet(s) PO daily 09/20/2011 09/24/2011 Inactive Lasix 20 mg Tab RxNorm : 054181 1 Tablet(s) PO daily 09/20/2011 09/24/2011 Inactive Xanax 0.5 mg Tab RxNorm: 338820 1/2-1 Tablet(s) PO Q8 PRN 09/12/2011 09/25/2011 Inactive Xanax 0.5 mg Tab RxNorm: 517677 1/2-1 Tablet(s) PO Q8 PRN 08/24/2011 09/11/2011 Inactive Lipitor 20 mg tablet RxNorm: 152675 Tablet(s) PO 08/22/2011 09/05/2012 Inactive TAKE 1 TABLET BY MOUTH DAILY (THIS IS AN INCREASE IN DOSAGE) Cipro 500 mg Tab RxNorm: 086040 1 Tablet(s) PO BID 201110/24/2011 Inactive Flagyl 500 mg Tab RxNorm: 312242 1 Tablet(s) PO TID 201110/24/2011 Inactive Diflucan 150 mg Tab RxNorm: 989843 1 Tablet(s) PO daily 201110/24/2011 Inactive Kenalog 40 mg/mL Susp for Injection RxNorm: 8352773 1 Milliliter(s) Inj 08/01/2011 10/24/2011 Inactive FreeStyle Lancets RxNorm: 1 test Miscellaneous TID 201107/08/2014 Inactive dispense quantity sufficient for three times daily testing for diabetes FreeStyle Test strips RxNorm: 1 Miscellaneous BID 07/21/2011 08/13/2012 Inactive please give lancets alsodx 250.02 Xanax 0.25 mg Tab RxNorm: 519536 1 Tablet(s) PO Q8 PRN 07/06 No Stop Date Active colestipol 1 gram Tab RxNorm: 4485034 Tablet(s) PO 07/04/2011 04/21/2016 Inactive TAKE 1 TABLET BY MOUTH TWICE DAILY DIRECTED colestipol 1 gram tablet RxNorm: 4786004 1 Tablet(s) PO BID 07/03/2011 Inactive Cartia XT 180 mg capsule,extended release RxNorm: 211980 1 Capsule(s) PO QHS 06/30/2011 11/16/2011 Inactive in addition to 240mg q am venlafaxine 37.5 mg Tab RxNorm: 118335 1 Tablet(s) PO BID 06/2406/29/2011 Inactive prednisone 5 mg Tab RxNorm: 705205 Tablet(s) PO UD 2011 10/24/2011 Inactive six day taper #21 Lyrica 50 mg capsule RxNorm: 921229 1 Capsule(s) PO TID 201108/18/2011 Inactive Diflucan 150 mg tablet RxNorm: 734768 1 Tablet(s) PO daily 06/24/2011 Inactive levofloxacin 500 mg Tab RxNorm: 399090 1 Tablet(s) PO daily 08/15/2011 Inactive azithromycin 250 mg Tab RxNorm: 500216 PO 05/23/2011 06/20/2011 Inactive omeprazole 20 mg capsule,delayed release RxNorm: 655567 Capsule(s) PO 05/10/2011 05/20/2012 Inactive TAKE 1 CAPSULE BY MOUTH TWICE DAILY;Patient requests 90 day supply diltiazem ER (XR/XT) 240 mg capsule,extended release, controlled RxNorm: 327567 Capsule(s) PO 04/19/2011 05/21/2012 Inactive TAKE 1 CAPSULE BY MOUTH EVERY MORNING;Patient requests 90 day supply Kenalog 40 mg/mL Susp for Injection RxNorm: 4706341 1 Milliliter(s) Inj 04/18/2011 06/20/2011 Inactive clindamycin 300 mg Cap RxNorm: 866505 1 Capsule(s) PO BID 04/1806/20/2011 Inactive lisinopril-hydrochlorothiazide 20 mg-12.5 mg Tab RxNorm: 185854 2 Tablet(s) PO daily 04/18/2011 10/24/2011 Inactive fluconazole 150 mg Tab RxNorm: 031691 1 Tablet(s) PO daily 07/201006/20/2011 Inactive Activella 0.5 mg-0.1 mg tablet RxNorm: 9996350 Tablet(s) PO 05/201005/08/2012 Inactive TAKE 1 TABLET BY MOUTH DAILY FOR MENOPAUSAL SYMPTOM diltiazem ER (XR/XT) 240 mg Continuous Release Cap RxNorm: 902710 1 Capsule(s) PO daily 03/17/2011 03/16/2011 Inactive diltiazem ER (XR/XT) 240 mg Continuous Release Cap RxNorm: 701256 Capsule(s) PO 03/17/2011 06/20/2011 Inactive TAKE 1 CAPSULE BY MOUTH EVERY MORNING metformin 850 mg tablet RxNorm: 618277 1 Tablet(s) PO as doctor directed take one pill by mouth in AM, 1/2 at noon, and 1 pill in the evening. 01/21/2011 04/20/2011 Inactive Xopenex 1.25 mg/3 mL solution for nebulization RxNorm: 588438 3 Milliliter(s) INH Q6 PRN No Start Date Active Novolog Flexpen U-100 Insulin aspart 100 unit/mL subcutaneous RxNorm: 3273253 10 units with meals plus SSI in [...] 301-325 Lomotil 2.5 mg-0.025 mg tablet RxNorm: 8827550 Tablet(s) PO No Start Date 02/21/2012 Inactive 1 after each loose bm limit 4 per day Novolog Flexpen U-100 Insulin aspart 100 unit/mL subcutaneous RxNorm: 1383248 10 Unit(s) SQ AC No Start Date 10/26 Inactive with sliding scale-Dr Yanna Grandesilamonte FlexTouch U-100 100 unit/mL (3 mL) subcutaneous insulin pen RxNorm: 1088742 40 Unit(s) SQ daily No Start Date Inactive gabapentin 600 mg tablet RxNorm: 030780 1 Tablet(s) PO TID No Start Date 06/26/2013 Inactive Effexor XR 37.5 mg capsule,extended release RxNorm: 713178 1 Capsule(s) PO BID No Start Date 10/23/2011 Inactive Levemir FlexTouch 100 unit/mL (3 mL) subcutaneous insulin pen RxNorm: 688624 50 Unit(s) SQ BID No Start Date 04/24/2017 Inactive Combivent Respimat 20 mcg-100 mcg/actuation solution for inhalation RxNorm: 5657826 1 INH QID No Start Date 05/11/2014 Inactive Xanax 0.5 mg Tab RxNorm: 021656 1/2-1 Tablet(s) PO Q8 PRN No Start Date 08/23/2011 Inactive Xopenex HFA 45 mcg/actuation Aerosol Inhaler RxNorm: 496864 2 INH QID No Start Date 11/07/2011 Inactive promethazine 25 mg tablet RxNorm: 249156 1 Tablet(s) PO Q8 as needed No Start Date 08/12/2015 Inactive colestipol 1 gram Tab RxNorm: 4855410 1 Tablet(s) PO BID No Start Date 07/03/2011 Inactive Cartia XT 240 mg capsule,extended release RxNorm: 157186 1 Capsule(s) PO QAM No Start Date 05/22/2012 Inactive in addition to 180mg q pm Lipitor 20 mg Tab RxNorm: 435045 1 Tablet(s) PO daily No Start Date 08/21/2011 Inactive FreeStyle Test Strips RxNorm: 1 Miscellaneous BID No Start Date 07/20/2011 Inactive Toujeo SoloStar U-300 Insulin 300 unit/mL (1.5 mL) subcutaneous pen RxNorm: 1428728 40 Unit(s) SQ BID No Start Date 10/26/2017 Inactive Diflucan 150 mg tablet RxNorm: 826503 1 Tablet(s) PO daily 1 pill po every other day x 8 doses No Start Date 03/18/2013 Inactive hydrocodone 5 mg-acetaminophen 500 mg tablet RxNorm: 752482 1 Tablet(s) PO Q6 PRN No Start Date 01/28/2013 Inactive Lasix 20 mg tablet RxNorm: 591679 Tablet(s) PO QDAY PRN No Start Date 02/27/2012 Inactive Promethazine VC 6.25 mg-5 mg/5 mL Syrup RxNorm: 4191377 1-2 PO Q6 PRN No Start Date 10/07/2013 Inactive promethazine 25 mg tablet RxNorm: 411930 1 Tablet(s) PO Q6 PRN No Start Date 02/09/2017 Inactive digoxin 125 mcg tablet RxNorm: 840785 1 Tablet(s) PO daily No Start Date 06/20/2017 Inactive Xanax 0.25 mg Tab RxNorm: 471916 1 Tablet(s) PO Q8 PRN No Start Date 07/05/2011 Inactive Diflucan 150 mg tablet RxNorm: 735906 1 Tablet(s) PO every other day x 4 doses No Start Date 04/09/2014 Inactive Carafate 100 mg/mL Oral Susp RxNorm: 941388 2 Teaspoon(s) PO daily No Start Date 10/24/2011 Inactive prednisone 5 mg Tab RxNorm: 434780 Tablet(s) PO UD No Start Date 06/22/2011 Inactive six day taper #21 Tessalon Perles 100 mg capsule RxNorm: 147092 2 Capsule(s) PO TID as needed No Start Date 05/16/2017 Inactive Bactroban 2 % topical ointment RxNorm: 123728 1 Application TOP BID No Start Date 09/26/2013 Inactive Phenergan 25 mg tablet RxNorm: 919634 1 Tablet(s) PO Q8 as needed nausea No Start Date 06/28/2015 Inactive flecainide 50 mg tablet RxNorm: 944680 1 Tablet(s) PO BID No Start Date 02/01/2016 Inactive Activella 0.5 mg-0.1 mg Tab RxNorm: 2662171 1 Tablet(s) PO daily No Start Date 03/21/2011 Inactive hydrocodone 10 mg-acetaminophen 325 mg tablet RxNorm: 422677 1 Tablet(s) PO Q6 as needed No Start Date 02/04/2016 Inactive lisinopril 20 mg Tab RxNorm: 037524 1 Tablet(s) PO daily No Start Date 06/20/2011 Inactive prednisone 10 mg tablets in a dose pack RxNorm: 486358 Tablet(s) PO UD 6-5-4-3-2- 1 No Start Date 05/30/2012 Inactive hydrocodone 7.5 mg-acetaminophen 325 mg tablet RxNorm: 996194 1 Tablet(s) PO Q6 PRN No Start Date 10/06/2013 Inactive hyoscyamine 0.125 mg sublingual tablet RxNorm: 2565284 1 Tablet(s) SL TID as needed No Start Date 05/16/2017 Inactive Cartia XT 180 mg 24 hr Cap RxNorm: 465977 1 Capsule(s) PO QHS No Start Date 06/29/2011 Inactive in addition to 240mg q am Zofran 4 mg tablet RxNorm: 870097 1 Tablet(s) PO Q6 PRN No Start Date 08/12/2012 Inactive omeprazole 20 mg Cap, Delayed Release RxNorm: 697094 1 Capsule(s) PO BID No Start Date 05/09/2011 Inactive venlafaxine 37.5 mg Tab RxNorm: 840081 1 Tablet(s) PO BID No Start Date 10/24/2011 Inactive Vesicare 10 mg tablet RxNorm: 409090 1 Tablet(s) PO daily No Start Date 09/28/2015 Inactive levothyroxine 25 mcg Tab RxNorm: 967477 1 Tablet(s) PO daily No Start Date 10/18/2011 Inactive Zithromax Z-Babak 250 mg tablet RxNorm: 227374 Tablet(s) PO UD No Start Date 04/01/2012 Inactive Januvia 100 mg tablet RxNorm: 164798 1 Tablet(s) PO daily No Start Date 05/22/2013 Inactive Lantus Solostar 100 unit/mL (3 mL) subcutaneous insulin pen RxNorm: 557452 Unit( s) SQ No Start Date 04/17/2017 Inactive 10 units q am and 50units at night fluconazole 150 mg tablet RxNorm: 388105 1 Tablet(s) PO every other day x 5 doses No Start Date 09/11/2012 Inactive Toprol XL 25 mg 24 hr Tab RxNorm: 439115 1 Tablet(s) PO daily No Start Date 11/16/2011 Inactive Medication Administered Medication Codes Instructions Start Date Status Kenalog 40 mg/mL suspension for injection RxNorm: 6161777 Milliliter 06/26/2015 No longer Active Kenalog 40 mg/mL suspension for injection RxNorm: 7484498 Milliliter 05/07/2013 No longer Active Kenalog 40 mg/mL Susp for Injection RxNorm: 3351374 1Milliliter 07/06/2012 No longer Active Pneumovax 23 25 mcg/0.5 mL Injection RxNorm: 371452 1/2Milliliter 06/07/2012 No longer Active Kenalog 40 mg/mL Susp for Injection RxNorm: 6685407 1Milliliter 05/02/2012 No longer Active Phenergan 25 mg/mL Injection RxNorm: 706832 Milliliter 11/30/2011 No longer Active Immunizations Vaccine [...] 26.2 pg 02/20/2018 Cbc With Differential Ord2 Power% 5.7 % 02/20/2018 Cbc With Differential Ord2 [...] 1.61 K/ul 02/20/2018 Cbc With Differential Ord2 Power ABS# 0.5 K/ul 02/20/2018 Cbc With Differential Ord2 Eos ABS# 0.1 K/ul 02/20/2018 Cbc With Differential Ord2 Baso ABS# 0.0 K/ul 02/20/2018 Comp Metabolic Gge804 NA 134 mEq/L 02/20/2018 Comp Metabolic Sbi027 K 3.9 mEq/L 02/20/2018 Comp Metabolic Plo544 CL 90 mEq/L 02/20/2018 Comp Metabolic Cnc830 CO2 32.0 mEq/L 02/20/2018 Comp Metabolic Rtv234 ANION GAP 16 02/20/2018 Comp Metabolic Yqv627 GLUCOSE 287 mg/dL 02/20/2018 Comp Metabolic Uvb451 Creat 0.8 mg/dL 02/20/2018 Comp Metabolic Hkm763 eGFR 72 ml/min/1.73m2 02/20/2018 Comp Metabolic Meb546 BUN 13 mg/dL 02/20/2018 Comp Metabolic Vyj931 B/C Ratio 15.5 Ratio 02/20/2018 Comp Metabolic Mvp319 CALCIUM 9.0 mg/dL 02/20/2018 Comp Metabolic Bxy344 ALK PHOS 120 U/L 02/20/2018 Comp Metabolic Hau406 AST(SGOT) 21 U/L 02/20/2018 Comp Metabolic Pmb033 ALT(SGPT) 17 U/L 02/20/2018 Comp Metabolic Ihq606 BILI T 0.4 mg/dL 02/20/2018 Comp Metabolic Sra710 ALBUMIN 3.8 g/dL 02/20/2018 Comp Metabolic Enm144 TPRO 6.9 g/dL 02/20/2018 Comp Metabolic Mbb129 GLOB 3.1 g/dL 02/20/2018 Comp Metabolic Fkn436 A/G Ratio 1.3 Ratio 02/20/2018 Comp Metabolic Wgd860 Osmo 279 mOsmo 02/20/2018 Vitamin D 25 Oh Bjy1034 VITAMIN D, 25 HYDROXY 26.48 ng/mL Digoxin Ord9 DIGOXIN 0.7 NG/ML 02/20/2018 Culture Urine [id number] URINE CULTURE SEE NOTES 12/01/2017 Urine Culture Ucult Complete >100,000 col/ml aerobic growth sent to ref lab 11/29/2017 Comp Metabolic Hud598 NA 135 mEq/L 08/21/2017 Comp Metabolic Xec810 K 4.6 mEq/L 08/21/2017 Comp Metabolic Kzf569 CL 92 mEq/L 08/21/2017 Comp Metabolic Sct770 CO2 32.0 mEq/L 08/21/2017 Comp Metabolic Eoi076 ANION GAP 16 08/21/2017 Comp Metabolic Dzz905 GLUCOSE 298 mg/dL 08/21/2017 Comp Metabolic Lxu815 Creat 1.1 mg/dL 08/21/2017 Comp Metabolic Fgd128 eGFR 54 ml/min/1.73m2 08/21/2017 Comp Metabolic Jki101 BUN 22 mg/dL 08/21/2017 Comp Metabolic Plf788 B/C Ratio 20.6 Ratio 08/21/2017 Comp Metabolic Kar198 CALCIUM 9.3 mg/dL 08/21/2017 Comp Metabolic Irt820 ALK PHOS 145 U/L 08/21/2017 Comp Metabolic Gkw328 AST(SGOT) 31 U/L 08/21/2017 Comp Metabolic Cwn457 ALT(SGPT) 19 U/L 08/21/2017 Comp Metabolic Olj811 BILI T 0.3 mg/dL 08/21/2017 Comp Metabolic Glw050 ALBUMIN 3.8 g/dL 08/21/2017 Comp Metabolic Fdi124 TPRO 7.1 g/dL 08/21/2017 Comp Metabolic Ynp772 GLOB 3.3 g/dL 08/21/2017 Comp Metabolic Iyi518 A/G Ratio 1.2 Ratio 08/21/2017 Comp Metabolic Nkb051 Osmo 285 mOsmo 08/21/2017 Cbc With Differential [...] 88.1 fl 08/18/2017 Cbc With Differential Ord2 Power% 6.9 % 08/18/2017 Cbc With Differential Ord2 [...] 2.05 K/ul 08/18/2017 Cbc With Differential Ord2 Power ABS# 0.7 K/ul 08/18/2017 Cbc With Differential Ord2 Eos ABS# 0.3 K/ul 08/18/2017 Cbc With Differential Ord2 Baso ABS# 0.0 K/ul 08/18/2017 %Hba1C Vlu599 % HbA1c 28174-7 11.5 % 06/13/2017 %Hba1C Wxd892 Gluc Ave 283 mg/dL 06/13/2017 Cbc With [...] 20.0 % 03/27/2017 Cbc With Differential Ord2 Power% 7.2 % 03/27/2017 Cbc With Differential Ord2 [...] 2.11 K/ul 03/27/2017 Cbc With Differential Ord2 Power ABS# 0.8 K/ul 03/27/2017 Cbc With Differential Ord2 Eos ABS# 0.2 K/ul 03/27/2017 Cbc With Differential Ord2 Baso ABS# 0.0 K/ul 03/27/2017 Digoxin Ord9 DIGOXIN 0.5 NG/ML 03/27/2017 Comp Metabolic Dis099 NA 136 mEq/L 03/27/2017 Comp Metabolic Szg780 K 4.1 mEq/L 03/27/2017 Comp Metabolic Fjx588 CL 90 mEq/L 03/27/2017 Comp Metabolic Oje537 CO2 34.0 mEq/L 03/27/2017 Comp Metabolic Nff910 ANION GAP 16 03/27/2017 Comp Metabolic Wyr091 GLUCOSE 325 mg/dL 03/27/2017 Comp Metabolic Eby790 Creat 1.0 mg/dL 03/27/2017 Comp Metabolic Vic145 eGFR 62 ml/min/1.73m2 03/27/2017 Comp Metabolic Ost454 BUN 15 mg/dL 03/27/2017 Comp Metabolic Ipk287 B/C Ratio 15.8 Ratio 03/27/2017 Comp Metabolic Rll391 CALCIUM 9.5 mg/dL 03/27/2017 Comp Metabolic Dtt836 ALK PHOS 159 U/L 03/27/2017 Comp Metabolic Fua404 AST(SGOT) 57 U/L 03/27/2017 Comp Metabolic Lza542 ALT(SGPT) 32 U/L 03/27/2017 Comp Metabolic Mgb314 BILI T 0.4 mg/dL 03/27/2017 Comp Metabolic Fwb867 ALBUMIN 4.3 g/dL 03/27/2017 Comp Metabolic Tly144 TPRO 7.3 g/dL 03/27/2017 Comp Metabolic Dia533 GLOB 3.0 g/dL 03/27/2017 Comp Metabolic Rkx008 A/G Ratio 1.4 Ratio 03/27/2017 Comp Metabolic Wjb386 Osmo 285 mOsmo 03/27/2017 Magnesium Ord90 Mag 2.4 mg/dL 02/27/2017 Comp Metabolic Dxy406 NA 138 mEq/L 02/27/2017 Comp Metabolic Mei738 K 4.2 mEq/L 02/27/2017 Comp Metabolic Ham609 CL 91 mEq/L 02/27/2017 Comp Metabolic Ouo767 CO2 36.0 mEq/L 02/27/2017 Comp Metabolic Xhd666 ANION GAP 15 02/27/2017 Comp Metabolic Csb734 GLUCOSE 297 mg/dL 02/27/2017 Comp Metabolic Umh654 Creat 0.9 mg/dL 02/27/2017 Comp Metabolic Khl923 eGFR 71 ml/min/1.73m2 02/27/2017 Comp Metabolic Yyd978 BUN 12 mg/dL 02/27/2017 Comp Metabolic Ncg778 B/C Ratio 14.1 Ratio 02/27/2017 Comp Metabolic Omu958 CALCIUM 9.0 mg/dL 02/27/2017 Comp Metabolic Qgm152 ALK PHOS 146 U/L 02/27/2017 Comp Metabolic Mvu466 AST(SGOT) 28 U/L 02/27/2017 Comp Metabolic Chl837 ALT(SGPT) 12 U/L 02/27/2017 Comp Metabolic Qrf191 BILI T 0.3 mg/dL 02/27/2017 Comp Metabolic Goj385 ALBUMIN 3.8 g/dL 02/27/2017 Comp Metabolic Djk977 TPRO 6.6 g/dL 02/27/2017 Comp Metabolic Cxc696 GLOB 2.8 g/dL 02/27/2017 Comp Metabolic Zbn874 A/G Ratio 1.3 Ratio 02/27/2017 Comp Metabolic Yuc069 Osmo 286 mOsmo 02/27/2017 Digoxin Ord9 DIGOXIN <0.2 NG/ML 02/14/2017 Comp Metabolic Iys692 NA 138 mEq/L 02/14/2017 Comp Metabolic Hez316 K 3.5 mEq/L 02/14/2017 Comp Metabolic Rsx511 CL 95 mEq/L 02/14/2017 Comp Metabolic Niq467 CO2 29.0 mEq/L 02/14/2017 Comp Metabolic Zgm379 ANION GAP 18 02/14/2017 Comp Metabolic Jru003 GLUCOSE 254 mg/dL 02/14/2017 Comp Metabolic Wuc887 Creat 1.0 mg/dL 02/14/2017 Comp Metabolic Ifc471 eGFR 62 ml/min/1.73m2 02/14/2017 Comp Metabolic Ugo644 BUN 14 mg/dL 02/14/2017 Comp Metabolic Lqu245 B/C Ratio 14.6 Ratio 02/14/2017 Comp Metabolic Olo940 CALCIUM 8.6 mg/dL 02/14/2017 Comp Metabolic Tqr711 ALK PHOS 155 U/L 02/14/2017 Comp Metabolic Xum505 AST(SGOT) 42 U/L 02/14/2017 Comp Metabolic Rqi423 ALT(SGPT) 28 U/L 02/14/2017 Comp Metabolic Rht037 BILI T 0.3 mg/dL 02/14/2017 Comp Metabolic Fpg112 ALBUMIN 3.6 g/dL 02/14/2017 Comp Metabolic Qew656 TPRO 6.2 g/dL 02/14/2017 Comp Metabolic Evw976 GLOB 2.6 g/dL 02/14/2017 Comp Metabolic Dbh189 A/G Ratio 1.4 Ratio 02/14/2017 Comp Metabolic Wae713 Osmo 285 mOsmo 02/14/2017 Vitamin D 25 Oh Fzj7502 VITAMIN D, 25 HYDROXY 8.99 ng/mL Tsh [...] 28.0 pg 01/16/2017 Cbc With Differential Ord2 Power% 7.3 % 01/16/2017 Cbc With Differential Ord2 [...] 1.42 K/ul 01/16/2017 Cbc With Differential Ord2 Power ABS# 0.6 K/ul 01/16/2017 Cbc With Differential Ord2 Eos ABS# 0.1 K/ul 01/16/2017 Cbc With Differential Ord2 Baso ABS# 0.0 K/ul 01/16/2017 Sed Rate Ord21 ESR 33 mm/hr 01/16/2017 C-Reactive Protein Qnt Crqnt CRP 3.3 mg/dl 01/16/2017 Free T4 Hmv906 FREE T4 0.81 ng/dL 01/16/2017 %Hba1C Psc989 % HbA1c 00123-6 12.4 % 01/16/2017 %Hba1C Hss867 Gluc Ave 309 mg/dL 01/16/2017 Comp Metabolic Lrl674 NA 134 mEq/L 01/16/2017 Comp Metabolic Tga377 K 4.0 mEq/L 01/16/2017 Comp Metabolic Pyn853 CL 89 mEq/L 01/16/2017 Comp Metabolic Bir717 CO2 30.0 mEq/L 01/16/2017 Comp Metabolic Wah019 ANION GAP 19 01/16/2017 Comp Metabolic Fad238 GLUCOSE 496 Result Verified By Repeat Analysis mg/dL 01/16/2017 Comp Metabolic Adl638 Creat 0.8 mg/dL 01/16/2017 Comp Metabolic Amo686 eGFR 73 ml/min/1.73m2 01/16/2017 Comp Metabolic Ulz416 BUN 13 mg/dL 01/16/2017 Comp Metabolic Qjh013 B/C Ratio 15.7 Ratio 01/16/2017 Comp Metabolic Cag467 CALCIUM 8.8 mg/dL 01/16/2017 Comp Metabolic Qjb066 ALK PHOS 171 U/L 01/16/2017 Comp Metabolic Nkq265 AST(SGOT) 54 U/L 01/16/2017 Comp Metabolic Ien335 ALT(SGPT) 32 U/L 01/16/2017 Comp Metabolic Fba023 BILI T 0.3 mg/dL 01/16/2017 Comp Metabolic Fqp504 ALBUMIN 3.9 g/dL 01/16/2017 Comp Metabolic Usf184 TPRO 6.5 g/dL 01/16/2017 Comp Metabolic Ouy116 GLOB 2.6 g/dL 01/16/2017 Comp Metabolic Xzd025 A/G Ratio 1.5 Ratio 01/16/2017 Comp Metabolic Tbs867 Osmo 290 mOsmo 01/16/2017 Comp Metabolic Mmx358 NA 135 mEq/L 09/14/2016 Comp Metabolic Spd645 K 5.2 mEq/L 09/14/2016 Comp Metabolic Cbo430 CL 93 mEq/L 09/14/2016 Comp Metabolic Tmg593 CO2 26.0 mEq/L 09/14/2016 Comp Metabolic Exj029 ANION GAP 21 09/14/2016 Comp Metabolic Xkx556 GLUCOSE 326 mg/dL 09/14/2016 Comp Metabolic Gei289 Creat 1.0 mg/dL 09/14/2016 Comp Metabolic Sug734 eGFR 57 ml/min/1.73m2 09/14/2016 Comp Metabolic Xah777 BUN 16 mg/dL 09/14/2016 Comp Metabolic Bod203 B/C Ratio 15.5 Ratio 09/14/2016 Comp Metabolic Pgc587 CALCIUM 9.2 mg/dL 09/14/2016 Comp Metabolic Dwx664 ALK PHOS 160 U/L 09/14/2016 Comp Metabolic Wrh118 AST(SGOT) 49 U/L 09/14/2016 Comp Metabolic Fom724 ALT(SGPT) 32 U/L 09/14/2016 Comp Metabolic Bfj152 BILI T 0.4 mg/dL 09/14/2016 Comp Metabolic Kot425 ALBUMIN 4.0 g/dL 09/14/2016 Comp Metabolic Kkr417 TPRO 7.3 g/dL 09/14/2016 Comp Metabolic Oje626 GLOB 3.3 g/dL 09/14/2016 Comp Metabolic How158 A/G Ratio 1.2 Ratio 09/14/2016 Comp Metabolic Hsx096 Osmo 284 mOsmo 09/14/2016 Cbc With Differential [...] 86.9 fl 09/14/2016 Cbc With Differential Ord2 Power% 6.2 % 09/14/2016 Cbc With Differential Ord2 [...] 2.09 K/ul 09/14/2016 Cbc With Differential Ord2 Power ABS# 0.7 K/ul 09/14/2016 Cbc With Differential Ord2 Eos ABS# 0.2 K/ul 09/14/2016 Cbc With Differential Ord2 Baso ABS# 0.3 K/ul 09/14/2016 %Hba1C Non014 % HbA1c 49984-9 10.7 % 09/14/2016 %Hba1C Tmj696 Gluc Ave 260 mg/dL 09/14/2016 Manual Differential Ord52 D-Neutr 62 % 09/14/2016 Manual Differential Ord52 D-Power 1 % 09/14/2016 Manual Differential Ord52 D-Lymph 34 % 09/14/2016 Manual Differential Ord52 D-Eos 2 % 09/14/2016 Manual Differential Ord52 D-[place] 1 % 09/14/2016 Comp Metabolic Wep528 NA 134 mEq/L 08/10/2016 Comp Metabolic Ddy353 K 5.0 mEq/L 08/10/2016 Comp Metabolic Dcx873 CL 91 mEq/L 08/10/2016 Comp Metabolic Drg404 CO2 29.0 mEq/L 08/10/2016 Comp Metabolic Iwe393 ANION GAP 19 08/10/2016 Comp Metabolic Qag489 GLUCOSE 291 mg/dL 08/10/2016 Comp Metabolic Jsf251 Creat 0.9 mg/dL 08/10/2016 Comp Metabolic Mph164 eGFR 68 ml/min/1.73m2 08/10/2016 Comp Metabolic Vak562 BUN 20 mg/dL 08/10/2016 Comp Metabolic Ogs945 B/C Ratio 22.7 Ratio 08/10/2016 Comp Metabolic Bgq539 CALCIUM 9.7 mg/dL 08/10/2016 Comp Metabolic Jnn042 ALK PHOS 144 U/L 08/10/2016 Comp Metabolic Cyr023 AST(SGOT) 62 U/L 08/10/2016 Comp Metabolic Eya903 ALT(SGPT) 37 U/L 08/10/2016 Comp Metabolic Kmo603 BILI T 0.3 mg/dL 08/10/2016 Comp Metabolic Dej130 ALBUMIN 4.3 g/dL 08/10/2016 Comp Metabolic Fpe741 TPRO 7.3 g/dL 08/10/2016 Comp Metabolic Smv415 GLOB 3.0 g/dL 08/10/2016 Comp Metabolic Mah112 A/G Ratio 1.5 Ratio 08/10/2016 Comp Metabolic Rvh883 Osmo 282 mOsmo 08/10/2016 Free T4 Nmc641 FREE T4 0.89 ng/dL 08/09/2016 Tsh Ord6 [...] 27.1 pg 08/09/2016 Cbc With Differential Ord2 Power% 5.4 % 08/09/2016 Cbc With Differential Ord2 [...] 2.46 K/ul 08/09/2016 Cbc With Differential Ord2 Power ABS# 0.8 K/ul 08/09/2016 Cbc With Differential [...] 26.3 % 04/20/2016 Cbc With Differential Ord2 Power% 6.3 % 04/20/2016 Cbc With Differential Ord2 [...] 2.63 K/ul 04/20/2016 Cbc With Differential Ord2 Power ABS# 0.6 K/ul 04/20/2016 Cbc With Differential Ord2 Eos ABS# 0.2 K/ul 04/20/2016 Cbc With Differential Ord2 Baso ABS# 0.0 K/ul 04/20/2016 Comp Metabolic Gqb877 NA 133 mEq/L 04/11/2016 Comp Metabolic Qwx555 K 4.1 mEq/L 04/11/2016 Comp Metabolic Thc812 CL 92 mEq/L 04/11/2016 Comp Metabolic Uzo895 CO2 30.0 mEq/L 04/11/2016 Comp Metabolic Eqa537 ANION GAP 15 04/11/2016 Comp Metabolic Psy898 GLUCOSE 414 mg/dL 04/11/2016 Comp Metabolic Jnj405 Creat 0.9 mg/dL 04/11/2016 Comp Metabolic Dmo799 eGFR 65 ml/min/1.73m2 04/11/2016 Comp Metabolic Hhy363 BUN 22 mg/dL 04/11/2016 Comp Metabolic Upk054 B/C Ratio 23.9 Ratio 04/11/2016 Comp Metabolic Hat080 CALCIUM 9.2 mg/dL 04/11/2016 Comp Metabolic Kgp883 ALK PHOS 145 U/L 04/11/2016 Comp Metabolic Rmk899 AST(SGOT) 22 U/L 04/11/2016 Comp Metabolic Gyb001 ALT(SGPT) 21 U/L 04/11/2016 Comp Metabolic Xwm486 BILI T 0.3 mg/dL 04/11/2016 Comp Metabolic Eid963 ALBUMIN 3.9 g/dL 04/11/2016 Comp Metabolic Lkm013 TPRO 6.8 g/dL 04/11/2016 Comp Metabolic Ttl061 GLOB 3.0 g/dL 04/11/2016 Comp Metabolic Xxk194 A/G Ratio 1.3 Ratio 04/11/2016 Comp Metabolic Him397 Osmo 287 mOsmo 04/11/2016 Cbc With Differential [...] 27.6 pg 04/11/2016 Cbc With Differential Ord2 Power% 6.9 % 04/11/2016 Cbc With Differential Ord2 [...] 2.09 K/ul 04/11/2016 Cbc With Differential Ord2 Power ABS# 0.7 K/ul 04/11/2016 Cbc With Differential Ord2 Eos ABS# 0.2 K/ul 04/11/2016 Cbc With Differential Ord2 Baso ABS# 0.0 K/ul 04/11/2016 Comp Metabolic Mfx287 NA 136 mEq/L 02/26/2016 Comp Metabolic Whi644 K 3.9 mEq/L 02/26/2016 Comp Metabolic Gcp730 CL 95 mEq/L 02/26/2016 Comp Metabolic Myn388 CO2 29.0 mEq/L 02/26/2016 Comp Metabolic Mgj699 ANION GAP 16 02/26/2016 Comp Metabolic Nmo669 GLUCOSE 277 mg/dL 02/26/2016 Comp Metabolic Qod194 Creat 0.7 mg/dL 02/26/2016 Comp Metabolic Srb733 eGFR 88 ml/min/1.73m2 02/26/2016 Comp Metabolic Rff815 BUN 11 mg/dL 02/26/2016 Comp Metabolic Kwe795 B/C Ratio 15.5 Ratio 02/26/2016 Comp Metabolic Lop185 CALCIUM 8.8 mg/dL 02/26/2016 Comp Metabolic Sam174 ALK PHOS 119 U/L 02/26/2016 Comp Metabolic Cfr494 AST(SGOT) 25 U/L 02/26/2016 Comp Metabolic Yjh796 ALT(SGPT) 20 U/L 02/26/2016 Comp Metabolic Edi853 BILI T 0.3 mg/dL 02/26/2016 Comp Metabolic Zlu366 ALBUMIN 3.8 g/dL 02/26/2016 Comp Metabolic Bly380 TPRO 6.6 g/dL 02/26/2016 Comp Metabolic Kmv250 GLOB 2.8 g/dL 02/26/2016 Comp Metabolic Owy662 A/G Ratio 1.3 Ratio 02/26/2016 Comp Metabolic Nko665 Osmo 281 mOsmo 02/26/2016 Cbc With Differential [...] 29.6 pg 02/26/2016 Cbc With Differential Ord2 Power% 6.4 % 02/26/2016 Cbc With Differential Ord2 [...] 2.78 K/ul 02/26/2016 Cbc With Differential Ord2 Power ABS# 0.8 K/ul 02/26/2016 Cbc With Differential Ord2 Eos ABS# 0.2 K/ul 02/26/2016 Cbc With Differential Ord2 Baso ABS# 0.1 K/ul 02/26/2016 %Hba1C Zcj392 % HbA1c 84669-6 9.6 % 02/26/2016 %Hba1C Kfb696 Gluc Ave 229 mg/dL 02/26/2016 Comp Metabolic Ent650 NA 138 mEq/L 11/10/2015 Comp Metabolic Kob074 K 4.5 mEq/L 11/10/2015 Comp Metabolic Uvu123 CL 99 mEq/L 11/10/2015 Comp Metabolic Rgd433 CO2 34.0 mEq/L 11/10/2015 Comp Metabolic Uzu212 ANION GAP 10 11/10/2015 Comp Metabolic Zpi104 GLUCOSE 167 mg/dL 11/10/2015 Comp Metabolic Pfm420 Creat 0.8 mg/dL 11/10/2015 Comp Metabolic Qkr943 eGFR 78 ml/min/1.73m2 11/10/2015 Comp Metabolic Sdf041 BUN 22 mg/dL 11/10/2015 Comp Metabolic Hda977 B/C Ratio 27.8 Ratio 11/10/2015 Comp Metabolic Dxs000 CALCIUM 8.5 mg/dL 11/10/2015 Comp Metabolic Fap057 ALK PHOS 130 U/L 11/10/2015 Comp Metabolic Jcv918 AST(SGOT) 56 U/L 11/10/2015 Comp Metabolic Jwe293 ALT(SGPT) 51 U/L 11/10/2015 Comp Metabolic Qvp131 BILI T 0.5 mg/dL 11/10/2015 Comp Metabolic Hew722 ALBUMIN 3.5 g/dL 11/10/2015 Comp Metabolic Ufx970 TPRO 5.8 g/dL 11/10/2015 Comp Metabolic Jhe363 GLOB 2.3 g/dL 11/10/2015 Comp Metabolic Exm717 A/G Ratio 1.5 Ratio 11/10/2015 Comp Metabolic Nch924 Osmo 283 mOsmo 11/10/2015 Cbc With Differential [...] 93.1 fl 11/10/2015 Cbc With Differential Ord2 Power% 7.7 % 11/10/2015 Cbc With Differential Ord2 [...] 1.92 K/ul 11/10/2015 Cbc With Differential Ord2 Power ABS# 0.9 K/ul 11/10/2015 Cbc With Differential [...] 28.6 pg 08/11/2015 Cbc With Differential Ord2 Power% 8.1 % 08/11/2015 Cbc With Differential Ord2 [...] 2.93 K/ul 08/11/2015 Cbc With Differential Ord2 Power ABS# 0.9 K/ul 08/11/2015 Cbc With Differential Ord2 Eos ABS# 0.1 K/ul 08/11/2015 Cbc With Differential Ord2 Baso ABS# 0.0 K/ul 08/11/2015 Cbc With Differential Ord2 New Analyzer Notice Please note new ref ranges starting 06-03-2015 due to implemntation of new five part differential hematolgy analyzer. 08/11/2015 Comp Metabolic Psb806 NA 142 mEq/L 08/11/2015 Comp Metabolic Eih126 K 3.6 mEq/L 08/11/2015 Comp Metabolic Rbf970 CL 98 mEq/L 08/11/2015 Comp Metabolic Yfl589 CO2 33.0 mEq/L 08/11/2015 Comp Metabolic Pvo203 ANION GAP 15 08/11/2015 Comp Metabolic Air296 GLUCOSE 100 mg/dL 08/11/2015 Comp Metabolic Jto434 Creat 0.9 mg/dL 08/11/2015 Comp Metabolic Vzu053 eGFR 65 ml/min/1.73m2 08/11/2015 Comp Metabolic Vau729 BUN 15 mg/dL 08/11/2015 Comp Metabolic Vqp580 B/C Ratio 16.3 Ratio 08/11/2015 Comp Metabolic Yxm417 CALCIUM 8.8 mg/dL 08/11/2015 Comp Metabolic Oom894 ALK PHOS 171 U/L 08/11/2015 Comp Metabolic Uga207 AST(SGOT) 76 U/L 08/11/2015 Comp Metabolic Nir606 ALT(SGPT) 64 U/L 08/11/2015 Comp Metabolic Hxa367 BILI T 0.4 mg/dL 08/11/2015 Comp Metabolic Act399 ALBUMIN 4.2 g/dL 08/11/2015 Comp Metabolic Rnl842 TPRO 6.7 g/dL 08/11/2015 Comp Metabolic Zir191 GLOB 2.6 g/dL 08/11/2015 Comp Metabolic Mmx194 A/G Ratio 1.6 Ratio 08/11/2015 Comp Metabolic Wvx189 Osmo 284 mOsmo 08/11/2015 %Hba1C Jvh826 % HbA1c 73759-1 6.7 % 08/11/2015 %Hba1C Uwo283 Gluc Ave 146 mg/dL 08/11/2015 Free T4 Awj512 FREE T4 1.07 ng/dL 08/11/2015 Culture Urine [id number] URINE CULTURE SEE NOTES 07/23/2015 Culture Urine [id number] Continued Results 07/23/2015 Urine Culture Ucult Complete Growth of aerobe sent to ref lab 07/21/2015 Free T4 Mio874 FREE T4 0.76 ng/dL 04/15/2015 Tsh Ord6 hTSH II 1.99 uIU/mL 04/15/2015 %Hba1C Gpy820 % HbA1c 24521-0 6.7 % 04/14/2015 %Hba1C Vuc841 Gluc Ave 146 mg/dL 04/14/2015 Comp Metabolic Bki769 NA 140 mEq/L 04/14/2015 Comp Metabolic Pza858 K 4.4 mEq/L 04/14/2015 Comp Metabolic Ifn630 CL 99 mEq/L 04/14/2015 Comp Metabolic Zmx964 CO2 29.0 mEq/L 04/14/2015 Comp Metabolic Ooq210 ANION GAP 16 04/14/2015 Comp Metabolic Zdc510 GLUCOSE 100 mg/dL 04/14/2015 Comp Metabolic Emh205 Creat 0.7 mg/dL 04/14/2015 Comp Metabolic Sdp128 eGFR 91 ml/min/1.73m2 04/14/2015 Comp Metabolic Mqj234 BUN 13 mg/dL 04/14/2015 Comp Metabolic Cnz467 B/C Ratio 18.8 Ratio 04/14/2015 Comp Metabolic Txv281 CALCIUM 9.1 mg/dL 04/14/2015 Comp Metabolic Mth900 ALK PHOS 138 U/L 04/14/2015 Comp Metabolic Dxx714 AST(SGOT) 22 U/L 04/14/2015 Comp Metabolic Oik175 ALT(SGPT) 22 U/L 04/14/2015 Comp Metabolic Cju647 BILI T 0.3 mg/dL 04/14/2015 Comp Metabolic Uze425 ALBUMIN 4.0 g/dL 04/14/2015 Comp Metabolic Zsu630 TPRO 6.5 g/dL 04/14/2015 Comp Metabolic Yld970 GLOB 2.5 g/dL 04/14/2015 Comp Metabolic Dmo456 A/G Ratio 1.6 Ratio 04/14/2015 Comp Metabolic Con090 Osmo 280 mOsmo 04/14/2015 Cbc With Differential [...] Ord2 RDW 16.5 % 04/14/2015 CHEM 14 1523358 AST 15 U/L 09/11/2013 CHEM 14 2032837 ALT 25 IU/L 09/11/2013 CHEM 14 6718249 BUN 29 MG/DL 09/11/2013 CHEM 14 2928175 ALBUMIN 3.8 GM/DL 09/11/2013 CHEM 14 8616982 CHLORIDE 99 MMOL/L 09/11/2013 CHEM 14 0725230 BILI TOT 0.2 MG/DL 09/11/2013 CHEM 14 0154170 ALK PHOS 118 U/L 09/11/2013 CHEM 14 6555992 SODIUM 136 MMOL/L 09/11/2013 CHEM 14 1408754 CREATININE 1.26 MG/DL 09/11/2013 CHEM 14 6715135 CALCIUM 9.0 MG/DL 09/11/2013 CHEM 14 8895547 POTASSIUM 5.0 MMOL/L 09/11/2013 CHEM 14 6316075 PROT TOT 6.2 GM/DL 09/11/2013 CHEM 14 9704468 GLUCOSE 254 MG/DL 09/11/2013 CHEM 14 0465469 BICARB 29 MMOL/L 09/11/2013 CHEM 14 2139483 ANION GAP 8 MEQ/L 09/11/2013 GFR CALC 5502700 GFR AA 52.0L ML/MIN 09/11/2013 GFR CALC 3942835 GFR NON-AA 43.0L ML/MIN 09/11/2013 FREE T4 [id number] FREE T4 1.35 NG/DL 08/02/2013 CBC 3583746 WBC 7.5 10e9/L 08/01/2013 CBC 3088931 RBC 3.88 10e12/L 08/01/2013 CBC 9651927 HGB 12.1 g/dL 08/01/2013 CBC 0661555 HCT DET 37.6 % 08/01/2013 CBC 1557910 MCV 96.9 fL 08/01/2013 CBC 8142362 MCH 31.2 pg 08/01/2013 CBC 4070091 MCHC 32.2 g/dL 08/01/2013 CBC 1387019 PLT 289 10e9/L 08/01/2013 CBC 8266580 MPV 9.6 fL 08/01/2013 CBC 2618884 JOSEFINA % 56.0 % 08/01/2013 CBC 8750576 LY % 31.6 % 08/01/2013 CBC 8731637 MON % 10.0 % 08/01/2013 CBC 0846400 EOS % 1.7 % 08/01/2013 CBC 0337568 BASO % 0.7 % 08/01/2013 CBC 6060575 RDW 15.5 % 08/01/2013 CBC 4389814 ABS JOSEFINA 4.20 10e9/L 08/01/2013 CBC 6401312 ABS LYMPH 2.37 10e9/L 08/01/2013 CBC 6847825 ABS MONO 0.75 10e9/L 08/01/2013 CBC 8635462 ABS EOS 0.13 10e9/L 08/01/2013 CBC 9582186 ABS BASO 0.05 10e9/L 08/01/2013 CBC 2824689 RDW-SD 53.5 fL 08/01/2013 TSH 9177648 TSH 6.497 uIU/ML 08/01/2013 CHEM 14 0978270 AST 53 U/L 08/01/2013 CHEM 14 8123852 ALT 36 IU/L 08/01/2013 CHEM 14 6628984 BUN 16 MG/DL 08/01/2013 CHEM 14 1148699 ALBUMIN 4.2 GM/DL 08/01/2013 CHEM 14 0935803 CHLORIDE 103 MMOL/L 08/01/2013 CHEM 14 6551708 BILI TOT 0.4 MG/DL 08/01/2013 CHEM 14 6266701 ALK PHOS 113 U/L 08/01/2013 CHEM 14 1959728 SODIUM 139 MMOL/L 08/01/2013 CHEM 14 1438897 CREATININE 0.83 MG/DL 08/01/2013 CHEM 14 1111435 CALCIUM 9.5 MG/DL 08/01/2013 CHEM 14 6416605 POTASSIUM 4.2 MMOL/L 08/01/2013 CHEM 14 0790266 PROT TOT 6.4 GM/DL 08/01/2013 CHEM 14 0169893 GLUCOSE 135 MG/DL 08/01/2013 CHEM 14 8380994 BICARB 26 MMOL/L 08/01/2013 CHEM 14 8191204 ANION GAP 10 MEQ/L 08/01/2013 A1C HPLC 7354468 A1C HPLC 93391-7 8.1 % 08/01/2013 GFR CALC 9962838 GFR AA >60 ML/MIN 08/01/2013 GFR CALC 1650393 GFR NON-AA >60 ML/MIN 08/01/2013 CBC 4999070 WBC 10.4 10e9/L 03/21/2013 CBC 3027943 RBC 4.27 10e12/L 03/21/2013 CBC 5853319 HGB 13.1 g/dL 03/21/2013 CBC 4523398 HCT DET 41.2 % 03/21/2013 CBC 9752260 MCV 96.5 fL 03/21/2013 CBC 3968361 MCH 30.7 pg 03/21/2013 CBC 8315952 MCHC 31.8 g/dL 03/21/2013 CBC 3223290 PLT 398 10e9/L 03/21/2013 CBC 3245297 MPV 10.9 fL 03/21/2013 CBC 8758914 JOSEFINA % 65.4 % 03/21/2013 CBC 8844813 LY % 25.6 % 03/21/2013 CBC 8516233 MON % 6.7 % 03/21/2013 CBC 1439827 EOS % 1.9 % 03/21/2013 CBC 8893155 BASO % 0.4 % 03/21/2013 CBC 9972733 RDW 14.2 % 03/21/2013 CBC 7251445 ABS JOSEFINA 6.80 10e9/L 03/21/2013 CBC 8667526 ABS LYMPH 2.66 10e9/L 03/21/2013 CBC 6638782 ABS MONO 0.70 10e9/L 03/21/2013 CBC 9004716 ABS EOS 0.20 10e9/L 03/21/2013 CBC 0268820 ABS BASO 0.04 10e9/L 03/21/2013 CBC 1962371 RDW-SD 48.7 fL 03/21/2013 GFR CALC 0492693 GFR AA 57.0L ML/MIN 03/21/2013 GFR CALC 6959806 GFR NON-AA 47.0L ML/MIN 03/21/2013 CHEM 14 1690707 AST 22 U/L 03/21/2013 CHEM 14 9679523 ALT 22 IU/L 03/21/2013 CHEM 14 4825241 BUN 29 MG/DL 03/21/2013 CHEM 14 2238736 ALBUMIN 4.1 GM/DL 03/21/2013 CHEM 14 5352412 CHLORIDE 99 MMOL/L 03/21/2013 CHEM 14 0248233 BILI TOT 0.3 MG/DL 03/21/2013 CHEM 14 1153901 ALK PHOS 123 U/L 03/21/2013 CHEM 14 5726289 SODIUM 137 MMOL/L 03/21/2013 CHEM 14 4767173 CREATININE 1.16 MG/DL 03/21/2013 CHEM 14 6790259 CALCIUM 9.1 MG/DL 03/21/2013 CHEM 14 0473867 POTASSIUM 4.1 MMOL/L 03/21/2013 CHEM 14 8099231 PROT TOT 6.7 GM/DL 03/21/2013 CHEM 14 1232136 GLUCOSE 209 MG/DL 03/21/2013 CHEM 14 5270612 BICARB 26 MMOL/L 03/21/2013 CHEM 14 5821677 ANION GAP 12 MEQ/L 03/21/2013 A1C HPLC 0111277 A1C HPLC 64478-0 6.6 % 03/21/2013 GFR CALC 7106952 GFR AA >60 ML/MIN 01/17/2013 GFR CALC 2525991 GFR NON-AA 51.0L ML/MIN 01/17/2013 CHEM 14 4814756 AST 18 U/L 01/17/2013 CHEM 14 1715456 ALT 32 IU/L 01/17/2013 CHEM 14 3973433 BUN 22 MG/DL 01/17/2013 CHEM 14 5042520 ALBUMIN 4.1 GM/DL 01/17/2013 CHEM 14 2609766 CHLORIDE 99 MMOL/L 01/17/2013 CHEM 14 4309978 BILI TOT 0.3 MG/DL 01/17/2013 CHEM 14 1603133 ALK PHOS 110 U/L 01/17/2013 CHEM 14 2017954 SODIUM 138 MMOL/L 01/17/2013 CHEM 14 3087250 CREATININE 1.09 MG/DL 01/17/2013 CHEM 14 8851086 CALCIUM 8.8 MG/DL 01/17/2013 CHEM 14 7432380 POTASSIUM 3.5 MMOL/L 01/17/2013 CHEM 14 8716964 PROT TOT 6.1 GM/DL 01/17/2013 CHEM 14 5847283 GLUCOSE 163 MG/DL 01/17/2013 CHEM 14 8560462 BICARB 29 MMOL/L 01/17/2013 CHEM 14 8042464 ANION GAP 10 MEQ/L 01/17/2013 CBC 3718835 WBC 8.0 10e9/L 01/17/2013 CBC 3597560 RBC 3.85 10e12/L 01/17/2013 CBC 2165009 HGB 12.6 g/dL 01/17/2013 CBC 5263530 HCT DET 38.0 % 01/17/2013 CBC 6665101 MCV 98.7 fL 01/17/2013 CBC 9301852 MCH 32.7 pg 01/17/2013 CBC 8530693 MCHC 33.2 g/dL 01/17/2013 CBC 3333511 PLT 325 10e9/L 01/17/2013 CBC 1605160 MPV 10.4 fL 01/17/2013 CBC 0613501 JOSEFINA % 64.6 % 01/17/2013 CBC 1254519 LY % 27.0 % 01/17/2013 CBC 7064407 MON % 6.8 % 01/17/2013 CBC 8159622 EOS % 1.4 % 01/17/2013 CBC 6919584 BASO % 0.2 % 01/17/2013 CBC 5974457 RDW 15.5 % 01/17/2013 CBC 8689948 ABS JOSEFINA 5.17 10e9/L 01/17/2013 CBC 1750848 ABS LYMPH 2.16 10e9/L 01/17/2013 CBC 0729899 ABS MONO 0.54 10e9/L 01/17/2013 CBC 5892777 ABS EOS 0.11 10e9/L 01/17/2013 CBC 7726726 ABS BASO 0.02 10e9/L 01/17/2013 CBC 2827963 RDW-SD 54.3 fL 01/17/2013 TSH 6301186 TSH 3.683 uIU/ML 12/31/2012 FREE T4 3402772 FREE T4 1.34 NG/DL 12/31/2012 A1C HPLC 9480962 A1C HPLC 67082-8 6.6 % 12/21/2012 CHEM 14 8899726 AST 16 U/L 12/20/2012 CHEM 14 0209593 ALT 36 IU/L 12/20/2012 CHEM 14 7983632 BUN 26 MG/DL 12/20/2012 CHEM 14 4984473 ALBUMIN 4.2 GM/DL 12/20/2012 CHEM 14 0682224 CHLORIDE 103 MMOL/L 12/20/2012 CHEM 14 4545068 BILI TOT 0.4 MG/DL 12/20/2012 CHEM 14 5151037 ALK PHOS 107 U/L 12/20/2012 CHEM 14 7833224 SODIUM 141 MMOL/L 12/20/2012 CHEM 14 9684301 CREATININE 0.73 MG/DL 12/20/2012 CHEM 14 5226312 CALCIUM 9.2 MG/DL 12/20/2012 CHEM 14 3415226 POTASSIUM 4.3 MMOL/L 12/20/2012 CHEM 14 8335894 PROT TOT 6.2 GM/DL 12/20/2012 CHEM 14 2895197 GLUCOSE 135 MG/DL 12/20/2012 CHEM 14 5316710 BICARB 32 MMOL/L 12/20/2012 CHEM 14 6988820 ANION GAP 6 MEQ/L 12/20/2012 GFR CALC 9813040 GFR AA >60 ML/MIN 12/20/2012 GFR CALC 0648584 GFR NON-AA >60 ML/MIN 12/20/2012 CBC 2923788 WBC 8.4 10e9/L 12/20/2012 CBC 0560019 RBC 4.30 10e12/L 12/20/2012 CBC 7382947 HGB 13.9 g/dL 12/20/2012 CBC 0285807 HCT DET 41.8 % 12/20/2012 CBC 3753980 MCV 97.2 fL 12/20/2012 CBC 2986898 MCH 32.3 pg 12/20/2012 CBC 1893481 MCHC 33.3 g/dL 12/20/2012 CBC 0400105 PLT 358 10e9/L 12/20/2012 CBC 3202233 MPV 10.2 fL 12/20/2012 CBC 5205483 JOSEFINA % 63.3 % 12/20/2012 CBC 9810913 LY % 28.9 % 12/20/2012 CBC 9998983 MON % 6.3 % 12/20/2012 CBC 9284363 EOS % 1.1 % 12/20/2012 CBC 1726399 BASO % 0.4 % 12/20/2012 CBC 9273603 RDW 15.3 % 12/20/2012 CBC 9036777 ABS JOSEFINA 5.32 10e9/L 12/20/2012 CBC 1334090 ABS LYMPH 2.43 10e9/L 12/20/2012 CBC 5264368 ABS MONO 0.53 10e9/L 12/20/2012 CBC 3781563 ABS EOS 0.09 10e9/L 12/20/2012 CBC 3425434 ABS BASO 0.03 10e9/L 12/20/2012 CBC 8165636 RDW-SD 51.9 fL 12/20/2012 GFR CALC 7656834 GFR AA >60 ML/MIN 02/01/2012 GFR CALC 1016383 GFR NON-AA >60 ML/MIN 02/01/2012 CBC 4526285 WBC 10.8 10e9/L 02/01/2012 CBC 3519267 RBC 3.86 10e12/L 02/01/2012 CBC 6198456 HGB 11.8 g/dL 02/01/2012 CBC 8620488 HCT DET 36.3 % 02/01/2012 CBC 5114701 MCV 94.0 fL 02/01/2012 CBC 4616837 MCH 30.6 pg 02/01/2012 CBC 5954273 MCHC 32.5 g/dL 02/01/2012 CBC 2318299 PLT 321 10e9/L 02/01/2012 CBC 7535190 MPV 10.3 fL 02/01/2012 CBC 1159672 JOSEFINA % 75.9 % 02/01/2012 CBC 3700893 LY % 16.1 % 02/01/2012 CBC 7774288 MON % 6.8 % 02/01/2012 CBC 7724132 EOS % 1.0 % 02/01/2012 CBC 2361120 BASO % 0.2 % 02/01/2012 CBC 8738329 RDW 14.2 % 02/01/2012 CBC 8407657 ABS JOSEFINA 8.20 10e9/L 02/01/2012 CBC 3044133 ABS LYMPH 1.74 10e9/L 02/01/2012 CBC 2098483 ABS MONO 0.73 10e9/L 02/01/2012 CBC 3957162 ABS EOS 0.11 10e9/L 02/01/2012 CBC 7393717 ABS BASO 0.02 10e9/L 02/01/2012 CBC 6065010 RDW-SD 47.2 fL 02/01/2012 BRAIN PEP 8202044 BRAIN PEP FOOTNOTE pg/mL 02/01/2012 CHEM 14 3648013 AST 26 U/L 02/01/2012 CHEM 14 0946631 ALT 36 IU/L 02/01/2012 CHEM 14 3071971 BUN 29 MG/DL 02/01/2012 CHEM 14 1693313 ALBUMIN 3.7 GM/DL 02/01/2012 CHEM 14 4962750 CHLORIDE 105 MMOL/L 02/01/2012 CHEM 14 4633331 BILI TOT 0.2 MG/DL 02/01/2012 CHEM 14 7000869 ALK PHOS 89 U/L 02/01/2012 CHEM 14 0265188 SODIUM 141 MMOL/L 02/01/2012 CHEM 14 4776524 CREATININE 0.76 MG/DL 02/01/2012 CHEM 14 5780078 CALCIUM 9.0 MG/DL 02/01/2012 CHEM 14 6958997 POTASSIUM 4.8 MMOL/L 02/01/2012 CHEM 14 2633028 PROT TOT 5.5 GM/DL 02/01/2012 CHEM 14 1415651 GLUCOSE 83 MG/DL 02/01/2012 CHEM 14 7588974 BICARB 31 MMOL/L 02/01/2012 CHEM 14 8705072 ANION GAP 5 MEQ/L 02/01/2012 GFR CALC 7012193 GFR AA >60 ML/MIN 11/30/2011 GFR CALC 2100484 GFR NON-AA >60 ML/MIN 11/30/2011 CHEM 14 1115659 AST 14 U/L 11/30/2011 CHEM 14 2174871 ALT 17 IU/L 11/30/2011 CHEM 14 9152226 BUN 12 MG/DL 11/30/2011 CHEM 14 8802120 ALBUMIN 4.3 GM/DL 11/30/2011 CHEM 14 6994205 CHLORIDE 104 MMOL/L 11/30/2011 CHEM 14 2511215 BILI TOT 0.3 MG/DL 11/30/2011 CHEM 14 7808976 ALK PHOS 83 U/L 11/30/2011 CHEM 14 2122918 SODIUM 143 MMOL/L 11/30/2011 CHEM 14 4350984 CREATININE 0.71 MG/DL 11/30/2011 CHEM 14 3551803 CALCIUM 9.7 MG/DL 11/30/2011 CHEM 14 7207514 POTASSIUM 4.4 MMOL/L 11/30/2011 CHEM 14 2274266 PROT TOT 6.3 GM/DL 11/30/2011 CHEM 14 3395373 GLUCOSE 107 MG/DL 11/30/2011 CHEM 14 1795917 BICARB 27 MMOL/L 11/30/2011 CHEM 14 0120473 ANION GAP 12 MEQ/L 11/30/2011 CBC 2957384 WBC 8.7 10e9/L 11/30/2011 CBC 7126883 RBC 4.40 10e12/L 11/30/2011 CBC 8310905 HGB 13.6 g/dL 11/30/2011 CBC 5338320 HCT DET 41.0 % 11/30/2011 CBC 2055089 MCV 93.2 fL 11/30/2011 CBC 5744296 MCH 30.9 pg 11/30/2011 CBC 4714059 MCHC 33.2 g/dL 11/30/2011 CBC 9951777 PLT 328 10e9/L 11/30/2011 CBC 7472869 MPV 10.7 fL 11/30/2011 CBC 2433301 JOSEFINA % 68.4 % 11/30/2011 CBC 5822634 LY % 22.4 % 11/30/2011 CBC 4235445 MON % 7.9 % 11/30/2011 CBC 6689894 EOS % 1.1 % 11/30/2011 CBC 7140240 BASO % 0.2 % 11/30/2011 CBC 1717334 RDW 13.5 % 11/30/2011 CBC 8133146 ABS JOSEFINA 5.95 10e9/L 11/30/2011 CBC 8774604 ABS LYMPH 1.95 10e9/L 11/30/2011 CBC 5179242 ABS MONO 0.69 10e9/L 11/30/2011 CBC 2050030 ABS EOS 0.10 10e9/L 11/30/2011 CBC 8956045 ABS BASO 0.02 10e9/L 11/30/2011 CBC 8184890 RDW-SD 45.0 fL 11/30/2011 URINALYSIS NONAUTO W/O SCOPE 90626 Specific [place] 1.030 DateTime(Free Text in Aprima) URINALYSIS NONAUTO W/O SCOPE 46660 PH 5 DateTime(Free Text in Aprima) URINALYSIS NONAUTO W/O SCOPE 35413 GLUCOSE neg DateTime( Free Text in Aprima) URINALYSIS NONAUTO W/O SCOPE 90542 Protein neg DateTime( Free Text in Aprima) URINALYSIS NONAUTO W/O SCOPE 35099 Blood neg DateTime(Free Text in Aprima) URINALYSIS NONAUTO W/O SCOPE 94360 Bilirubin neg DateTime(Free Text in Aprima) URINALYSIS NONAUTO W/O SCOPE 56807 Ketones neg DateTime( Free Text in Aprima) URINALYSIS NONAUTO W/O SCOPE 00177 Urobilinogen neg DateTime(Free Text in Aprima) URINALYSIS NONAUTO W/O SCOPE 75969 Nitrite neg DateTime( Free Text in Aprima) URINALYSIS NONAUTO W/O SCOPE 53010 Leukocytes neg DateTime(Free Text in Aprima) UA 55060 Specific [place] 1.010 DateTime(Free Text in Aprima ) UA 54843 PH 5 DateTime(Free Text in Aprima) UA 07435 GLUCOSE N DateTime(Free Text in Aprima) UA 13005 Protein N DateTime(Free Text in Aprima) UA 24274 Blood TRACE DateTime(Free Text in Aprima) UA 96154 Bilirubin N DateTime(Free Text in Aprima) UA 12015 Ketones N DateTime(Free Text in Aprima) UA 05536 Urobilinogen N DateTime(Free Text in Aprima) UA 77979 Nitrite N DateTime(Free Text in Aprima) UA 23173 Leukocytes N DateTime(Free Text in Aprima) URINALYSIS NONAUTO W/O SCOPE 70087 Specific [place] 1.010 DateTime(Free Text in Aprima) URINALYSIS NONAUTO W/O SCOPE 06656 PH 7.5 DateTime(Free Text in Aprima) URINALYSIS NONAUTO W/O SCOPE 36718 GLUCOSE DateTime( Free Text in Aprima) URINALYSIS NONAUTO W/O SCOPE 09162 Protein trace DateTime(Free Text in Aprima) URINALYSIS NONAUTO W/O SCOPE 23437 Blood DateTime(Free Text in Aprima) URINALYSIS NONAUTO W/O SCOPE 02883 Bilirubin DateTime( Free Text in Aprima) URINALYSIS NONAUTO W/O SCOPE 84430 Ketones DateTime( Free Text in Aprima) URINALYSIS NONAUTO W/O SCOPE 36703 Urobilinogen DateTime (Free Text in Aprima) URINALYSIS NONAUTO W/O SCOPE 35684 Nitrite DateTime( Free Text in Aprima) URINALYSIS NONAUTO W/O SCOPE 65624 Leukocytes DateTime( Free Text in Aprima) URINALYSIS NONAUTO W/O SCOPE 28969 Specific [place] 1.010 DateTime(Free Text in Aprima) URINALYSIS NONAUTO W/O SCOPE 89110 PH 6 DateTime(Free Text in Aprima) URINALYSIS NONAUTO W/O SCOPE 87091 GLUCOSE DateTime( Free Text in Aprima) URINALYSIS NONAUTO W/O SCOPE 75895 Protein DateTime( Free Text in Aprima) URINALYSIS NONAUTO W/O SCOPE 63478 Blood DateTime(Free Text in Aprima) URINALYSIS NONAUTO W/O SCOPE 73034 Bilirubin DateTime( Free Text in Aprima) URINALYSIS NONAUTO W/O SCOPE 83232 Ketones DateTime( Free Text in Aprima) URINALYSIS NONAUTO W/O SCOPE 20400 Urobilinogen DateTime (Free Text in Aprima) URINALYSIS NONAUTO W/O SCOPE 78764 Nitrite DateTime( Free Text in Aprima) URINALYSIS NONAUTO W/O SCOPE 16642 Leukocytes DateTime( Free Text in Aprima) UA 83883 Specific [place] 1.020 DateTime(Free Text in Aprima ) UA 13007 PH 6 DateTime(Free Text in Aprima) UA 69414 GLUCOSE neg DateTime(Free Text in Aprima) UA 31845 Protein neg DateTime(Free Text in Aprima) UA 81930 Blood neg DateTime(Free Text in Aprima) UA 04574 Bilirubin neg DateTime(Free Text in Aprima) UA 29340 Ketones neg DateTime(Free Text in Aprima) UA 63609 Urobilinogen neg DateTime(Free Text in Aprima) UA 32667 Nitrite neg DateTime(Free Text in Aprima) UA 11881 Leukocytes neg DateTime(Free Text in Aprima) BMI 45105-0 39.7 DateTime(Free Text in Aprima) Blood Pressure [...] lips 02/02/2016 None Full Exam - General 1995 Ears/Nose/Throat [...] mastoids 02/13/2014 None Full Exam - General 1995 Ears/Nose/Throat otoscopic exam External auditory canal: a normal exam 02/13/2014 None Full Exam - General 1995 Ears/Nose/Throat otoscopic exam External auditory canal: partial cerumen occlusion 02/13/2014 None Full Exam - General 1995 Ears/Nose/Throat otoscopic exam Tympanic membrane: a normal exam 02/13/2014 None Full Exam - General 1995 Ears/Nose/Throat [...] masses 09/20/2013 None Full Exam - General 1995 Ears/Nose/Throat external ear Overall: normal mastoids 09/20/2013 None Full Exam - General 1995 [...] murmurs 05/07/2013 None Full Exam - General 1995 Lymphatic neck nodes Overall: shotty lymphadenopathy 05/07/2013 None Full Exam - General 1995 Neurologic mental status Overall: alert 05/07/2013 None Full Exam - General 1995 Neurologic mental status Overall: oriented 05/07/2013 None [...] dentition 03/21/2013 None Full Exam - General 1994 Ears/Nose/Throat lips/teeth/gingiva Overall: benign gingiva 03/21/2013 None Full Exam - General 1994 Ears/Nose/Throat lips/teeth/gingiva Overall: no masses 03/21/2013 None [...] bilaterally 01/17/2013 None Full Exam - General 1995 Respiratory auscultation Basilar: diminished 01/17/2013 None Full Exam - General 1995 Respiratory respiratory effort/rhythm Overall: no retractions 01/17/2013 None Full Exam - General 1995 Respiratory respiratory effort/rhythm Overall: normal rate 01/17/2013 None Full Exam - General 1995 Cardiovascular extremities Edema present: pitting 01/17/2013 None Full Exam - General 1995 Cardiovascular extremities Edema present: bilateral 01/17/2013 None Full Exam - General 1995 Cardiovascular auscultation of heart Rate: regular rate 01/17/2013 None Full Exam - General 1995 [...] accomodation 12/31/2012 None Full Exam - General 1995 Ears/Nose/Throat otoscopic exam External auditory canal: a normal exam 12/31/2012 None Full Exam - General 1995 Ears/Nose/Throat otoscopic exam Tympanic membrane: air- fluid level 12/31/2012 None Full Exam - General 1995 [...] occlusion 11/03/2011 None Full Exam - General 1995 Ears/Nose/Throat [...] level 08/09/2011 None Full Exam - General 1995 [...] Date GLUC MONITOR CONT PHYS I&R CPT-4: 20534 04/27/2018 URINALYSIS NONAUTO W/O SCOPE CPT-4: 90862 04/10/2018 GLUCOSE MONITORING CONT CPT-4: 36440 04/10/2018 OCCULT BLOOD FECES CPT -4: 57411 02/22/2018 URINALYSIS NONAUTO W/O SCOPE CPT-4: 76062 02/20/2018 URINALYSIS NONAUTO W/O SCOPE CPT-4: 63561 12/14/2017 URINALYSIS NONAUTO W/O SCOPE CPT-4: 56352 11/27/2017 PPPS, SUBSEQ VISIT CPT -4: G0439 10/27/2017 GLUCOSE MONITORING CONT CPT-4: 01067 09/27/2017 URINALYSIS NONAUTO W/O SCOPE CPT-4: 27009 06/30/2017 URINALYSIS NONAUTO W/O SCOPE CPT-4: 38894 11/25/2016 URINALYSIS NONAUTO W/O SCOPE CPT-4: 61806 10/21/2016 URINALYSIS NONAUTO W/O SCOPE CPT-4: 64414 06/24/2016 URINALYSIS NONAUTO W/O SCOPE CPT-4: 34992 04/11/2016 ADMIN PNEUMOCOCCAL VACCINE SNOMED CT: [id number] CPT-4: G0009 02/26/2016 PNEUMOCOCCAL VACC 13 ANURADHA IM Formatting Model/CDA Sections, Assigned to/Jada Velazquez SNOMED CT: [id number] CPT-4: 92017Ksouanx 02/26/2016 URINALYSIS NONAUTO W/O SCOPE CPT-4: 17411 02/10/2016 URINALYSIS NONAUTO W/O SCOPE CPT-4: 45499 11/27/2015 URINALYSIS NONAUTO W/O SCOPE CPT-4: 20737 11/02/2015 INITIAL PREVENTIVE EXAM CPT-4: G0402 09/29/2015 URINALYSIS NONAUTO W/O SCOPE CPT-4: 35030 07/20/2015 TRIAMCINOLONE ACET INJ NOS CPT-4: J3301 06/26/2015 URINALYSIS NONAUTO W/O SCOPE CPT-4: 11267 11/05/2014 URINALYSIS NONAUTO W/O SCOPE CPT-4: 18339 04/21/2014 CULTURE AEROBIC IDENTIFY CPT-4: 53666 12/12/2013 URINALYSIS NONAUTO W/O SCOPE CPT-4: 16280 11/18/2013 ROUTINE VENIPUNCTURE CPT-4: 04703 09/10/2013 ROUTINE VENIPUNCTURE CPT-4: 48286 08/01/2013 URINALYSIS NONAUTO W/O SCOPE CPT-4: 87134 06/28/2013 TRIAMCINOLONE ACET INJ NOS CPT-4: J3301 05/07/2013 DRAIN/INJECT JOINT/BURSA CPT-4: 02012 05/07/2013 ROUTINE VENIPUNCTURE CPT-4: 29890 03/21/2013 ROUTINE VENIPUNCTURE CPT-4: 26992 01/17/2013 URINALYSIS NONAUTO W/O SCOPE CPT-4: 02320 01/01/2013 ROUTINE VENIPUNCTURE CPT-4: 22525 12/31/2012 ROUTINE VENIPUNCTURE CPT-4: 11880 12/20/2012 URINALYSIS NONAUTO W/O SCOPE CPT-4: 09104 11/05/2012 DRAIN/INJECT JOINT/BURSA CPT-4: 37037 09/21/2012 TRIAMCINOLONE ACET INJ NOS CPT-4: J3301 09/21/2012 URINALYSIS NONAUTO W/O SCOPE CPT-4: 56567 07/19/2012 TRIAMCINOLONE ACET INJ NOS CPT-4: J3301 07/06/2012 Pneumococcal Polysaccharide Vaccine, 23-Valent, Ad CPT-4: 63387 06/07/2012 IMMUNIZATION ADMIN CPT -4: 46009 06/07/2012 TRIAMCINOLONE ACET INJ NOS CPT-4: J3301 05/02/2012 ROUTINE VENIPUNCTURE CPT-4: 13383 02/01/2012 URINALYSIS NONAUTO W/O SCOPE CPT-4: 05492 02/01/2012 TRIAMCINOLONE ACET INJ NOS CPT-4: J3301 12/14/2011 INJ TRIGGER POINT 1/2 MUSCL CPT-4: 72364 12/14/2011 PROMETHAZINE HCL INJECTION CPT-4: J2550 11/30/2011 ROUTINE VENIPUNCTURE CPT-4: 44553 11/30/2011 TRIAMCINOLONE ACET INJ NOS CPT-4: J3301 08/01/2011 DRAIN/INJECT JOINT/BURSA CPT-4: 87234 08/01/2011 THER/PROPH/DIAG INJ SC/IM CPT-4: 75460 04/18/2011 TRIAMCINOLONE ACET INJ NOS CPT-4: J3301 04/18/2011 Vital Signs Date Vital 04/27/2018 Blood Pressure 1: 122/54 Code : 8480-6 BMI: 39.7 Code : 96034-6 Heart Rate 1 : 84 bpm Height: 5'2" SpO2: 92% 04/10/2018 Blood Pressure 1: 120/68 Code : 8480-6 BMI: 39.7 Code : 22924-9 Heart Rate 1 : 87 bpm Height: 5'2" SpO2: 99% Weight: 217 lbs 03/12/2018 Blood Pressure 1: 140/70 Code : 8480-6 BMI: 40.2 Code : 67374-5 Heart Rate 1 : 78 bpm Height: 5'2" SpO2: 98% Weight: 220 lbs 02/20/2018 Blood Pressure 1: 140/70 Code : 8480-6 BMI: 40.2 Code : 43714-4 Heart Rate 1 : 96 bpm Height: 5'2" SpO2: 93% Weight: 220 lbs 11/27/2017 Blood Pressure 1: 158/78 Code : 8480-6 BMI: 40.8 Code : 55117-5 Heart Rate 1 : 100 bpm Height: 5'2" SpO2: 95% Weight: 223 lbs 10/27/2017 Blood Pressure 1: 146/70 Code : 8480-6 BMI: 41.3 Code : 39853-0 Heart Rate 1 : 82 bpm Height: 5'2" SpO2: 99% Waist Measure (cm): 119 cm Weight: 226 lbs 09/15/2017 Blood Pressure 1: 136/66 Code : 8480-6 BMI: 41.5 Code : 37079-5 Heart Rate 1 : 94 bpm Height: 5'2" SpO2: 96% Weight: 227 lbs 08/18/2017 Blood Pressure 1: 120/68 Code : 8480-6 BMI: 41.5 Code : 35299-2 Heart Rate 1 : 87 bpm Height: 5'2" SpO2: 94% Weight: 227 lbs 08/03/2017 Blood Pressure 1: 132/72 Code : 8480-6 BMI: 41.5 Code : 97555-5 Heart Rate 1 : 93 bpm Height: 5'2" SpO2: 95% Weight: 227 lbs 07/27/2017 Blood Pressure 1: 128/84 Code : 8480-6 BMI: 41.5 Code : 14773-7 Heart Rate 1 : 91 bpm Height: 5'2" SpO2: 98% Weight: 227 lbs 06/13/2017 Blood Pressure 1: 136/84 Code : 8480-6 BMI: 42.6 Code : 85878-9 Heart Rate 1 : 91 bpm Height: 5'2" SpO2: 94% Weight: 233 lbs 04/21/2017 Blood Pressure 1: 142/84 Code : 8480-6 BMI: 42.8 Code : 73358-6 Heart Rate 1 : 89 bpm Height: 5'2" SpO2: 94% Weight: 234 lbs 04/18/2017 Blood Pressure 1: 140/86 Code : 8480-6 BMI: 42.8 Code : 21835-8 Heart Rate 1 : 89 bpm Height: 5'2" SpO2: 97% Weight: 234 lbs 03/27/2017 Blood Pressure 1: 148/76 Code : 8480-6 BMI: 42.6 Code : 98573-4 Heart Rate 1 : 92 bpm Height: [...] Code : 8480-6 BMI: 44.3 Code : 24333-8 Heart Rate 1 : 90 bpm Height: 5'2" SpO2: 96% Weight: 242 lbs 01/30/2017 Blood Pressure 1: 132/72 Code : 8480-6 Heart Rate 1: 97 bpm Height: 5'2" SpO2: 96% Weight: 01/16/2017 Blood Pressure 1: 138/76 Code : 8480-6 BMI: 43.3 Code : 83660-5 Heart Rate 1 : 84 bpm Height: 5'2" SpO2: 99% Weight: 237 lbs 12/13/2016 Blood Pressure 1: 144/78 Code : 8480-6 Heart Rate 1: 96 bpm Height: 5'2" SpO2: 98% Temperature: 36.6 (C) / 97.9 (F) Weight: 11/11/2016 Blood Pressure 1: 144/80 Code : 8480-6 BMI: 43.0 Code : 95211-1 Heart Rate 1 : 89 bpm Height: 5'2" SpO2: 94% Temperature: 36.1 (C) / 97.0 (F) Weight: 235 lbs 10/28/2016 Blood Pressure 1: 156/82 Code : 8480-6 BMI: 43.9 Code : 24313-3 Heart Rate 1 : 78 bpm Height: [...] Code : 8480-6 BMI: 42.4 Code : 99885-7 Heart Rate 1 : 95 bpm Height: 5'2" SpO2: 98% Weight: 232 lbs 08/09/2016 Blood Pressure 1: 138/80 Code : 8480-6 BMI: 41.0 Code : 59845-3 Heart Rate 1 : 98 bpm Height: 5'2" SpO2: 97% Weight: 224 lbs 07/26/2016 Blood Pressure 1: 148/82 Code : 8480-6 BMI: 42.4 Code : 74535-7 Heart Rate 1 : 89 bpm Height: 5'2" SpO2: 97% Weight: 232 lbs 05/24/2016 Blood Pressure 1: 146/72 Code : 8480-6 BMI: 42.4 Code : 86918-0 Heart Rate 1 : 89 bpm Height: 5'2" SpO2: 99% Weight: 232 lbs 04/19/2016 Blood Pressure 1: 130/88 Code : 8480-6 BMI: 42.4 Code : 12044-6 Heart Rate 1 : 88 bpm Height: 5'2" SpO2: 98% Weight: 232 lbs 04/11/2016 Blood Pressure 1: 140/80 Code : 8480-6 BMI: 41.7 Code : 95355-3 Heart Rate 1 : 97 bpm Height: 5'2" SpO2: 95% Weight: 228 lbs 03/21/2016 Blood Pressure 1: 138/80 Code : 8480-6 BMI: 44.4 Code : 51881-0 Height: 5'2" Weight: 243 lbs 03/11/2016 Blood Pressure 1: 138/82 Code : 8480-6 BMI: 44.4 Code : 45203-7 Heart Rate 1 : 86 bpm Height: 5'2" SpO2: 95% Weight: 243 lbs 02/26/2016 Blood Pressure 1: 130/82 Code : 8480-6 BMI: 43.9 Code : 81788-1 Heart Rate 1 : 86 bpm Height: 5'2" SpO2: 97% Weight: 240 lbs 02/02/2016 Blood Pressure 1: 136/86 Code : 8480-6 Heart Rate 1: 56 bpm Height: SpO2: 96% Weight: 12/17/2015 Blood Pressure 1: 140/80 Code : 8480-6 BMI: 40.2 Code : 01721-5 Heart Rate 1 : 100 bpm Height: 5'2" SpO2: 99% Weight: 220 lbs 12/08/2015 Blood Pressure 1: 132/86 Code : 8480-6 Heart Rate 1: 100 bpm Height: SpO2: 97% Weight: 11/27/2015 Blood Pressure 1: 128/82 Code : 8480-6 BMI: 39.3 Code : 33583-0 Heart Rate 1 : 112 bpm Height: 5'2" SpO2: 96% Weight: 215 lbs 11/12/2015 Blood Pressure 1: 168/88 Code : 8480-6 Heart Rate 1: 106 bpm Height: 5'2" SpO2: 96% Weight: 11/10/2015 Blood Pressure 1: 156/80 Code : 8480-6 Heart Rate 1: 94 bpm Height: 5'2" SpO2: 96% Weight: 10/27/2015 Blood Pressure 1: 142/76 Code : 8480-6 BMI: 40.8 Code : 37737-0 Heart Rate 1 : 86 bpm Height: 5'2" SpO2: 97% Weight: 223 lbs 09/29/2015 Blood Pressure 1: 132/88 Code : 8480-6 BMI: 41.7 Code : 48984-8 Heart Rate 1 : 104 bpm Height: 5'2" SpO2: 94% Weight: 228 lbs 09/22/2015 Blood Pressure 1: 130/80 Code : 8480-6 BMI: 41.7 Code : 81787-9 Heart Rate 1 : 89 bpm Height: 5'2" SpO2: 97% Weight: 228 lbs 09/01/2015 Blood Pressure 1: 138/88 Code : 8480-6 BMI: 40.6 Code : 04019-1 Heart Rate 1 : 95 bpm Height: 5'2" SpO2: 95% Weight: 222 lbs 08/10/2015 Blood Pressure 1: 140/82 Code : 8480-6 BMI: 41.0 Code : 04903-1 Heart Rate 1 : 84 bpm Height: 5'2" SpO2: 97% Weight: 224 lbs 06/26/2015 Blood Pressure 1: 152/72 Code : 8480-6 BMI: 41.2 Code : 41768-2 Heart Rate 1 : 92 bpm Height: 5'2" SpO2: 96% Weight: 225 lbs 04/14/2015 Blood Pressure 1: 158/86 Code : 8480-6 BMI: 41.2 Code : 37779-2 Heart Rate 1 : 63 bpm Height: 5'2" SpO2: 93% Weight: 225 lbs 03/03/2015 Blood Pressure 1: 152/80 Code : 8480-6 BMI: 40.1 Code : 98407-4 Heart Rate 1 : 101 bpm Height: 5'2" SpO2: 97% Weight: 219 lbs 01/15/2015 Blood Pressure 1: 127/76 Code : 8480-6 BMI: 40.6 Code : 08932-8 Heart Rate 1 : 109 bpm Height: 5'2" SpO2: 97% Weight: 222 lbs 01/01/2015 Blood Pressure 1: 136/64 Code : 8480-6 BMI: 40.4 Code : 96154-1 Heart Rate 1 : 94 bpm Height: 5'2" SpO2: 96% Weight: 221 lbs 12/25/2014 Blood Pressure 1: 146/80 Code : 8480-6 Heart Rate 1: 95 bpm Height: 5'2" SpO2: 94% 11/04/2014 Blood Pressure 1: 110/70 Code : 8480-6 BMI: 40.2 Code : 55566-5 Heart Rate 1 : 878 bpm Height: 5'2" SpO2: 97% Weight: 220 lbs 09/08/2014 Blood Pressure 1: 142/78 Code : 8480-6 BMI: 39.5 Code : 35678-3 Heart Rate 1 : 97 bpm Height: 5'2" SpO2: 98% Weight: 216 lbs 08/29/2014 Blood Pressure 1: 140/90 Code : 8480-6 Blood Pressure 2: 120/70 Code: 8480-6 BMI: 40.2 Code: 81112-8 Heart Rate 1: 88 bpm Height: 5'2" Weight: 220 lbs 06/30/2014 Blood Pressure 1: 132/74 Code : 8480-6 BMI: 39.1 Code : 31497-1 Heart Rate 1 : 76 bpm Height: 5'2" Weight: 214 lbs 06/12/2014 Blood Pressure 1: 118/76 Code : 8480-6 BMI: 40.4 Code : 94407-1 Heart Rate 1 : 86 bpm Height: 5'2" SpO2: 96% Weight: 221 lbs 05/26/2014 Blood Pressure 1: 128/78 Code : 8480-6 BMI: 39.5 Code : 99189-0 Heart Rate 1 : 76 bpm Height: 5'2" Weight: 216 lbs 04/15/2014 Blood Pressure 1: 144/72 Code : 8480-6 BMI: 40.8 Code : 63782-2 Heart Rate 1 : 60 bpm Height: 5'2" Weight: 223 lbs 03/25/2014 Blood Pressure 1: 118/72 Code : 8480-6 BMI: 41.2 Code : 89654-3 Heart Rate 1 : 80 bpm Height: 5'2" Weight: 225 lbs 03/03/2014 Blood Pressure 1: 138/86 Code : 8480-6 BMI: 41.5 Code : 05626-4 Heart Rate 1 : 104 bpm Height: 5'2" Temperature: 36.1 (C) / 97.0 (F) Weight: 227 lbs 02/13/2014 Blood Pressure 1: 142/88 Code : 8480-6 BMI: 40.8 Code : 39936-9 Heart Rate 1 : 88 bpm Height: 5'2" Weight: 223 lbs 01/27/2014 Blood Pressure 1: 124/68 Code : 8480-6 BMI: 39.9 Code : 04385-5 Heart Rate 1 : 89 bpm Height: 5'2" SpO2: 94% Weight: 218 lbs 12/26/2013 Blood Pressure 1: 108/52 Code : 8480-6 BMI: 41.2 Code : 84524-4 Heart Rate 1 : 96 bpm Height: 5'2" Weight: 225 lbs 12/12/2013 Blood Pressure 1: 158/88 Code : 8480-6 BMI: 42.6 Code : 79356-4 Heart Rate 1 : 80 bpm Height: 5'2" Weight: 233 lbs 11/14/2013 Blood Pressure 1: 120/60 Code : 8480-6 BMI: 42.4 Code : 66269-3 Heart Rate 1 : 96 bpm Height: 5'2" Temperature: 5423.3 (C ) / 9794.0 (F) Weight: 232 lbs 10/21/2013 Blood Pressure 1: 100/60 Code : 8480-6 BMI: 41.9 Code : 32422-0 Heart Rate 1 : 96 bpm Height: 5'2" Weight: 229 lbs 10/03/2013 Blood Pressure 1: 122/72 Code : 8480-6 BMI: 42.3 Code : 08751-9 Heart Rate 1 : 84 bpm Height: 5'2" Weight: 231 lbs 09/27/2013 Blood Pressure 1: 112/58 Code : 8480-6 Heart Rate 1: 72 bpm SpO2: 93% Temperature: 36.2 (C) / 97.1 (F) Weight: 09/23/2013 Blood Pressure 1: 108/76 Code : 8480-6 BMI: 42.4 Code : 64557-3 Heart Rate 1 : 95 bpm Height: 5'2" SpO2: 96% Weight: 232 lbs 09/20/2013 Blood Pressure 1: 150/88 Code : 8480-6 BMI: 42.4 Code : 53499-6 Heart Rate 1 : 104 bpm Height: 5'2" Weight: 232 lbs 09/10/2013 Blood Pressure 1: 112/62 Code : 8480-6 Heart Rate 1: 88 bpm Weight: 238 lbs 08/19/2013 Blood Pressure 1: 102/58 Code : 8480-6 BMI: 43.7 Code : 14699-9 Heart Rate 1 : 80 bpm Height: 5'2" Weight: 239 lbs 08/12/2013 Blood Pressure 1: 110/60 Code : 8480-6 BMI: 43.3 Code : 68486-3 Heart Rate 1 : 90 bpm Height: 5'2" SpO2: 96% Weight: 236 lbs 8 oz 08/01/2013 Blood Pressure 1: 128/72 Code : 8480-6 BMI: 42.6 Code : 77491-4 Heart Rate 1 : 78 bpm Height: 5'2" SpO2: 97% Weight: 233 lbs 07/19/2013 Blood Pressure 1: 100/60 Code : 8480-6 BMI: 44.3 Code : 53703-8 Heart Rate 1 : 92 bpm Height: 5'2" Temperature: 36.2 (C) / 97.2 (F) Weight: 242 lbs 07/15/2013 Blood Pressure 1: 180/92 Code : 8480-6 Heart Rate 1: 115 bpm SpO2: 98% Weight: 06/27/2013 Blood Pressure 1: 114/64 Code : 8480-6 BMI: 44.1 Code : 39402-4 Heart Rate 1 : 114 bpm Height: 5'2" SpO2: 93% Weight: 241 lbs 06/10/2013 Blood Pressure 1: 174/86 Code : 8480-6 BMI: 44.1 Code : 82246-7 Heart Rate 1 : 132 bpm Height: 5'2" SpO2: 94% Temperature: 35.6 (C) / 96.0 (F) Weight: 241 lbs 05/07/2013 Blood Pressure 1: 160/88 Code : 8480-6 BMI: 43.5 Code : 37786-3 Heart Rate 1 : 108 bpm Height: 5'2" SpO2: 96% Weight: 238 lbs 04/16/2013 Blood Pressure 1: 116/62 Code : 8480-6 BMI: 44.6 Code : 51532-3 Heart Rate 1 : 90 bpm Height: 5'2" SpO2: 94% Weight: 244 lbs 03/21/2013 Blood Pressure 1: 102/64 Code : 8480-6 BMI: 42.8 Code : 92867-2 Height: 5'2" Weight: 234 lbs 02/12/2013 Blood Pressure 1: 130/78 Code : 8480-6 BMI: 42.0 Code : 69478-7 Heart Rate 1 : 100 bpm Height: 5'2" Weight: 229 lbs 8 oz 02/04/2013 Blood Pressure 1: 126/68 Code : 8480-6 BMI: 44.3 Code : 84312-6 Heart Rate 1 : 88 bpm Height: 5'2" Weight: 242 lbs 01/17/2013 Blood Pressure 1: 132/76 Code : 8480-6 Heart Rate 1: 121 bpm SpO2: 97% Weight: 242 lbs 12/31/2012 Blood Pressure 1: 144/90 Code : 8480-6 BMI: 43.0 Code : 13851-2 Heart Rate 1 : 96 bpm Height: 5'2" Temperature: 36.2 (C) / 97.2 (F) Weight: 235 lbs 12/20/2012 Blood Pressure 1: 156/96 Code : 8480-6 BMI: 42.4 Code : 46500-8 Heart Rate 1 : 96 bpm Height: [...] Code : 8480-6 BMI: 38.8 Code : 57963-6 Heart Rate 1 : 96 bpm Height: 5'2" Temperature: 36.3 (C) / 97.3 (F) Weight: 212 lbs 08/23/2012 Blood Pressure 1: 116/72 Code : 8480-6 BMI: 38.3 Code : 05229-4 Heart Rate 1 : 92 bpm Height: 5'2" Weight: 209 lbs 8 oz 08/13/2012 Blood Pressure 1: 140/92 Code : 8480-6 BMI: 37.3 Code : 55828-7 Heart Rate 1 : 104 bpm Height: 5'2" Weight: 204 lbs 08/07/2012 Blood Pressure 1: 148/98 Code : 8480-6 BMI: 36.6 Code : 24105-5 Heart Rate 1 : 102 bpm Height: [...] Code : 8480-6 BMI: 35.3 Code : 04022-3 Heart Rate 1 : 105 bpm Height: [...] december - she was seen by her manager post again in mid 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 She states that she saw her manager post and was to be started on another [...] lesion Alleviating Factors medication 09/10/2013 went to [facility] on Monday and start on Cipro diabetes [...] differently. States she did eat BBQ from [employer] yesterday for lunch. hypertension Quality [...] data Encounters Encounter Performer Location Codes Date ([id number]) [id number] EST. PATIENT, LEVEL III Diagnosis: Cough[ICD10: R05] Diagnosis: Chronic maxillary sinusitis[ICD10: J32.0] Diagnosis: Type 2 diabetes mellitus with hyperglycemia[ICD10: E11.65] Rika Motta MD, [facility] CPT-4: 14455 04/27/2018 [id number]) 45632 EST. PATIENT, LEVEL IV Diagnosis: Essential (primary) hypertension[ICD10: I10] Diagnosis: Type 2 diabetes mellitus with hyperglycemia[ICD10: E11.65] Diagnosis: Generalized anxiety disorder[ICD10: F41.1] Diagnosis: Weakness[ICD10: R53.1] Rika Motta MD, [facility] CPT-4: 16598 04/10/2018 ([id number]) 82901 EST. PATIENT, LEVEL IV Diagnosis: Type 2 diabetes mellitus with hyperglycemia[ICD10: E11.65] Diagnosis: Low back pain[ICD10: M54.5] Diagnosis: Essential (primary) hypertension[ICD10: I10] Diagnosis: Generalized anxiety disorder[ICD10: F41.1] Rika Motta MD, [facility] CPT-4: 85799 03/12/2018 ([id number]) 78310 EST. PATIENT, LEVEL III Diagnosis: Type 2 diabetes mellitus with hyperglycemia[ICD10: E11.65] Diagnosis: Essential (primary) hypertension[ICD10: I10] Diagnosis: Dysuria[ICD10: R30.0] Diagnosis: Vitamin D deficiency, unspecified[ICD10: E55.9] Diagnosis: Low back pain[ICD10: M54.5] Rika Motta MD, [facility] CPT-4: 19351 02/20/2018 ([id number]) 50803 EST. PATIENT, LEVEL III Diagnosis: Dysuria[ICD10: R30.0] Diagnosis: Essential (primary) hypertension[ICD10: I10] Rika Motta MD, [facility] CPT-4: 23488 11/27/2017 ([id number]) 46674 EST. PATIENT, LEVEL III Diagnosis: Type 2 diabetes mellitus with hyperglycemia[ICD10: E11.65] Diagnosis: Chronic pain syndrome[ICD10: G89.4] Rika Motta MD, [facility] CPT-4: 27175 09/15/2017 ([id number]) 75601 EST. 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 PATIENT, LEVEL III Diagnosis: Chronic maxillary sinusitis[ICD10: J32.0] Diagnosis: Type 2 diabetes mellitus with hyperglycemia[ICD10: E11.65] Diagnosis: Hordeolum externum left upper eyelid[ICD10: H00.014] Rika Motta MD, [facility] CPT-4: 35569 08/03/2017 ([id number]) 18056 EST. PATIENT, LEVEL IV Diagnosis: Type 2 diabetes mellitus with hyperglycemia[ICD10: E11.65] Diagnosis: Hordeolum externum left upper eyelid[ICD10: H00.014] Diagnosis: Essential (primary) hypertension[ICD10: I10] Diagnosis: Chronic obstructive pulmonary disease, unspecified[ICD10: J44.9] Rika Motta MD, [facility] CPT-4: 16944 07/27/2017 ([id number]) 97159 EST. PATIENT, LEVEL IV Diagnosis: Type 2 diabetes mellitus with hyperglycemia[ICD10: E11.65] Diagnosis: Essential (primary) hypertension[ICD10: I10] Tessie Motta MD, [facility] CPT-4: 35663 06/13/2017 77917 EST. PATIENT, LEVEL IV Diagnosis: Periapical abscess without sinus[ICD10: K04.7] Arlette Motta MD, [facility] CPT-4: 75652 04/21/2017 ([id number]) 44289 EST. PATIENT, LEVEL IV Diagnosis: Type 2 diabetes mellitus with hyperglycemia[ICD10: E11.65] Diagnosis: Cellulitis of abdominal wall[ICD10: L03.311] Diagnosis: Chronic pain syndrome[ICD10: G89.4] Diagnosis: Essential (primary) hypertension[ICD10: I10] Diagnosis: Unsteadiness on feet[ICD10: R26.81] Rika Motta MD, [facility] CPT-4: 61955 04/18/2017 ([id number]) 46617 EST. PATIENT, LEVEL IV Diagnosis: Type 2 diabetes mellitus with hyperglycemia[ICD10: E11.65] Diagnosis: Hypokalemia[ICD10: E87.6] Diagnosis: Essential (primary) hypertension[ICD10: I10] Diagnosis: Paroxysmal atrial fibrillation[ICD10: I48.0] Rika Motta MD, [facility] CPT-4: 49804 03/27/2017 ([id number]) 43784 EST. PATIENT, LEVEL IV Diagnosis: Essential (primary) hypertension[ICD10: I10] Diagnosis: Type 2 diabetes mellitus with hyperglycemia[ICD10: E11.65] Diagnosis: Hypokalemia[ICD10: E87.6] Diagnosis: Generalized abdominal pain[ICD10: R10.84] Rika Motta MD, [facility] CPT-4: 63355 02/27/2017 ([id number]) 48928 EST. PATIENT, LEVEL III Diagnosis: Drug induced constipation[ICD10: K59.03] Rika Motta MD, [facility] CPT-4: 38079 02/21/2017 ([id number]) 75598 EST. PATIENT, LEVEL IV Diagnosis: Generalized abdominal pain[ICD10: R10.84] Diagnosis: Hypokalemia[ICD10: E87.6] Diagnosis: Hypomagnesemia[ICD10: E83.42] Rika Motta MD, [facility] CPT-4: 31462 02/17/2017 ([id number]) 49197 EST. PATIENT, LEVEL IV Diagnosis: Paroxysmal atrial fibrillation[ICD10: I48.0] Diagnosis: Essential (primary) hypertension[ICD10: I10] Diagnosis: Chronic obstructive pulmonary disease, unspecified[ICD10: J44.9] Diagnosis: Type 2 diabetes mellitus with hyperglycemia[ICD10: E11.65] Diagnosis: Diarrhea, unspecified[ICD10: R19.7] Rika Motta MD, [facility] CPT-4: 09520 02/13/2017 ([id number]) 14914 EST. PATIENT, LEVEL IV Diagnosis: Type 2 diabetes mellitus with hyperglycemia[ICD10: E11.65] Diagnosis: Pain in right shoulder[ICD10: M25.511] Diagnosis: Chronic maxillary sinusitis[ICD10: J32.0] Rika Motta MD, [facility] CPT-4: 10404 01/30/2017 ([id number]) 64843 EST. PATIENT, LEVEL IV Diagnosis: Essential (primary) hypertension[ICD10: I10] Diagnosis: Type 2 diabetes mellitus with hyperglycemia[ICD10: E11.65] Diagnosis: Hypothyroidism, unspecified[ICD10: E03.9] Diagnosis: Generalized anxiety disorder[ICD10: F41.1] Diagnosis: Chronic pain syndrome[ICD10: G89.4] Diagnosis: Restless legs syndrome[ICD10: G25.81] Diagnosis: Obstructive sleep apnea (adult) (pediatric)[ICD10: G47.33] Rika Motta MD, [facility] CPT-4: 14744 01/16/2017 74001 EST. PATIENT, LEVEL IV Diagnosis: Other acute sinusitis[ICD10: J01.80] Diagnosis: Diplopia[ICD10: H53.2] Arlette Motta MD, [facility] CPT-4: 13048 12/13/2016 ([id number]) 50396 EST. PATIENT, LEVEL IV Diagnosis: Essential (primary) hypertension[ICD10: I10] Diagnosis: Fasciculation[ICD10: R25.3] Diagnosis: Generalized anxiety disorder[ICD10: F41.1] Diagnosis: Other obesity due to excess calories[ICD10: E66.09] Diagnosis: Zoster without complications[ICD10: B02.9] Diagnosis: Unilateral primary osteoarthritis, right knee[ICD10: M17.11] Diagnosis: Unsteadiness on feet[ICD10: R26.81] Rika Motta MD, [facility] CPT-4: 36979 11/11/2016 ([id number]) 70747 EST. PATIENT, LEVEL IV Diagnosis: Zoster without complications[ICD10: B02.9] Diagnosis: Type 2 diabetes mellitus with hyperglycemia[ICD10: E11.65] Diagnosis: Vomiting, unspecified[ICD10: R11.10] Rika Motta MD, [facility] CPT-4: 26818 10/28/2016 ([id number]) 39673 EST. PATIENT, LEVEL III Diagnosis: Pain in right knee[ICD10: M25.561] Diagnosis: Zoster without complications[ICD10: B02.9] Rika Motta MD, [facility] CPT-4: 65574 10/13/2016 ([id number]) 90007 EST. PATIENT, LEVEL IV Diagnosis: Acute recurrent maxillary sinusitis[ICD10: J01.01] Diagnosis: Low back pain[ICD10: M54.5] Diagnosis: Pain in right knee[ICD10: M25.561] Diagnosis: Allergic rhinitis due to pollen[ICD10: J30.1] Rika Motta MD, [facility] CPT-4: 00445 09/23/2016 ([id number]) 22028 EST. PATIENT, LEVEL IV Diagnosis: Pain in right shoulder[ICD10: M25.511] Diagnosis: Type 2 diabetes mellitus with hyperglycemia[ICD10: E11.65] Diagnosis: Cervicalgia[ICD10: M54.2] Diagnosis: Candidiasis of skin and nail[ICD10: B37.2] Diagnosis: Low back pain[ICD10: M54.5] Rika Motta MD, [facility] CPT-4: 56046 09/13/2016 ([id number]) 32351 EST. 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 PATIENT, LEVEL IV Diagnosis: Type 2 diabetes mellitus with hyperglycemia[ICD10: E11.65] Diagnosis: Candidiasis of skin and nail[ICD10: B37.2] Diagnosis: Chronic obstructive pulmonary disease, unspecified[ICD10: J44.9] Diagnosis: Paroxysmal atrial fibrillation[ICD10: I48.0] Diagnosis: Pneumonia, unspecified organism[ICD10: J18.9] Rika Motta MD, [facility] CPT-4: 87115 07/26/2016 ([id number]) 61312 EST. PATIENT, LEVEL IV Diagnosis: Type 2 diabetes mellitus with hyperglycemia[ICD10: E11.65] Diagnosis: Generalized anxiety disorder[ICD10: F41.1] Diagnosis: Essential (primary) hypertension[ICD10: I10] Diagnosis: Chronic pain syndrome[ICD10: G89.4] Rika Motta MD, [facility] CPT-4: 56119 05/24/2016 ([id number]) 41303 EST. PATIENT, LEVEL IV Diagnosis: Menopausal and female climacteric states[ICD10: N95.1] Diagnosis: Type 2 diabetes mellitus with hyperglycemia[ICD10: E11.65] Diagnosis: Generalized anxiety disorder[ICD10: F41.1] Rika Motta MD, [facility] CPT-4: 44433 04/19/2016 ([id number]) 09459 EST. PATIENT, LEVEL IV Diagnosis: Type 2 diabetes mellitus with hyperglycemia[ICD10: E11.65] Diagnosis: Generalized anxiety disorder[ICD10: F41.1] Diagnosis: Essential (primary) hypertension[ICD10: I10] Diagnosis: Dysuria[ICD10: R30.0] Rika Motta MD, [facility] CPT-4: 30931 04/11/2016 ([id number]) 05789 EST. PATIENT, LEVEL IV Diagnosis: Generalized anxiety disorder[ICD10: F41.1] Diagnosis: Major depressive disorder, single episode, mild[ICD10: F32.0] Diagnosis: Hypothyroidism, unspecified[ICD10: E03.9] Diagnosis: Type 2 diabetes mellitus with hyperglycemia[ICD10: E11.65] Rika Motta MD, [facility] CPT-4: 40585 03/21/2016 ([id number]) 30621 EST. PATIENT, LEVEL IV Diagnosis: Type 2 diabetes mellitus with hyperglycemia[ICD10: E11.65] Diagnosis: Cellulitis of right lower limb[ICD10: L03.115] Diagnosis: Other elevated white blood cell count[ICD10: D72.828] Diagnosis: Localized edema[ICD10: R60.0] Rika Motta MD, [facility] CPT-4: 96693 03/11/2016 ([id number]) 69262 EST. PATIENT, LEVEL IV Diagnosis: Type 2 diabetes mellitus with hyperglycemia[ICD10: E11.65] Diagnosis: Localized edema[ICD10: R60.0] Diagnosis: Other conjunctivitis[ICD10: H10.89] Diagnosis: Obstructive sleep apnea (adult) (pediatric)[ICD10: G47.33] Diagnosis: Unspecified asthma, uncomplicated[ICD10: J45.909] Diagnosis: VAC STREP PNEUMONIAE-FLU[ICD10: Z23] Rika Motta MD, [facility] CPT-4: 81817 02/26/2016 ([id number]) [id number] EST. PATIENT, LEVEL IV Diagnosis: Essential (primary) hypertension[ICD10: I10] Diagnosis: Paroxysmal atrial fibrillation[ICD10: I48.0] Diagnosis: Type 2 diabetes mellitus with hyperglycemia[ICD10: E11.65] Diagnosis: Obstructive sleep apnea (adult) (pediatric)[ICD10: G47.33] Diagnosis: Chronic obstructive pulmonary disease, unspecified[ICD10: J44.9] Rika Motta MD, [facility] CPT-4: 87599 02/02/2016 [id number]) [id number] EST. 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 PATIENT, LEVEL IV Diagnosis: Type 2 diabetes mellitus with hyperglycemia[ICD10: E11.65] Diagnosis: Generalized anxiety disorder[ICD10: F41.1] Diagnosis: Essential (primary) hypertension[ICD10: I10] Diagnosis: Restless legs syndrome[ICD10: G25.81] Diagnosis: Dysuria[ICD10: R30.0] Rika Motta MD, [facility] CPT-4: 67840 11/27/2015 23519 EST. PATIENT, LEVEL IV Diagnosis: Addisonian crisis[ICD10: E27.2] Arlette Motta MD, [facility] CPT-4 : 36495 11/12/2015 69897 EST. PATIENT, LEVEL IV Diagnosis: Acute bronchitis due to other specified organisms[ICD10: J20.8] Diagnosis: Other acute sinusitis[ICD10: J01.80] Diagnosis: Other malaise[ICD10: R53.81] Diagnosis: Cough[ICD10: R05] Arlette Motta MD, [facility] CPT-4: 75324 11/10/2015 61933 EST. PATIENT, LEVEL IV Diagnosis: Pain in left knee[ICD10: M25.562] Diagnosis: Cellulitis of right toe[ICD10: L03.031] Arlette Motta MD, [facility] CPT-4: 65524 10/27/2015 ([id number]) 26017 EST. PATIENT, LEVEL IV Diagnosis: Essential (primary) hypertension[ICD10: I10] Diagnosis: Localized edema[ICD10: R60.0] Diagnosis: Type 2 diabetes mellitus with hyperglycemia[ICD10: E11.65] Rika Motta MD, [facility] CPT-4: 46321 09/22/2015 ([id number]) 41879 EST. PATIENT, LEVEL IV Diagnosis: Essential (primary) hypertension[ICD10: I10] Diagnosis: Type 2 diabetes mellitus with hyperglycemia[ICD10: E11.65] Diagnosis: Cellulitis of right toe[ICD10: L03.031] Rika Motta MD, [facility] CPT-4: 42465 09/01/2015 ([id number]) 33126 EST. PATIENT, LEVEL IV Diagnosis: Type 2 diabetes mellitus with hyperglycemia[ICD10: E11.65] Diagnosis: Essential (primary) hypertension[ICD10: I10] Diagnosis: Generalized anxiety disorder[ICD10: F41.1] Diagnosis: Hypothyroidism, unspecified[ICD10: E03.9] Diagnosis: Body mass index (BMI) 40.0-44.9, adult[ICD10: Z68.41] Rika Motta MD, [facility] CPT-4: 06529 08/10/2015 47525 EST. PATIENT, LEVEL IV Diagnosis: Acute bronchitis due to other specified organisms[ICD10: J20.8] Diagnosis: Pain in left knee[ICD10: M25.562] Diagnosis: Type 2 diabetes mellitus with hyperglycemia[ICD10: E11.65] Arlette Motta MD, [facility] CPT-4: 27647 06/26/2015 ([id number]) 24080 EST. PATIENT, LEVEL IV Diagnosis: Cellulitis of right lower limb[ICD10: L03.115] Diagnosis: Type 2 diabetes mellitus with hyperglycemia[ICD10: E11.65] Diagnosis: Essential (primary) hypertension[ICD10: I10] Diagnosis: Edema, unspecified[ICD10: R60.9] Rika Motta MD, [facility] CPT-4: 58991 04/14/2015 ([id number]) 80744 EST. PATIENT, LEVEL IV Diagnosis: Essential (primary) hypertension[ICD10: I10] Diagnosis: Type 2 diabetes mellitus with hyperglycemia[ICD10: E11.65] Diagnosis: Localized edema[ICD10: R60.0] Diagnosis: Dysuria[ICD10: R30.0] Rika Motta MD, [facility] CPT-4: 84043 03/03/2015 ([id number]) 45067 EST. PATIENT, LEVEL III Diagnosis: Blister of leg[ICD9: 916.2] Diagnosis: Rash[ICD9: 782.1] Diagnosis: EDEMA[ICD9: 782.3] Tessie Motta MD, [facility] CPT-4: 28798 01/15/2015 ([id number]) 05758 EST. PATIENT, LEVEL IV Diagnosis: Cellulitis, leg[ICD9: 682.6] Diagnosis: DIABETES TYPE II[ICD9: 250.00] Tessie Motta MD, [facility] CPT- 4: 22385 01/01/2015 ([id number]) Miscellaneous no charge Diagnosis: CVA (cerebral vascular accident)[ICD9: 434.91] Isabella Motta MD, [facility] CPT-4: 96727 12/25/2014 ([id number]) 99223 EST. PATIENT, LEVEL IV Diagnosis: ESSENTIAL HYPERTENSION[ICD9: 401.9] Diagnosis: DM W/O COMPLICATION TYPE II, UNCONTROLLED[ICD9: 250.02] Diagnosis: EDEMA[ICD9: 782.3] Diagnosis: Dysuria[ICD9: 788.1] Rika Motta MD, [facility] CPT-4: 11892 11/04/2014 ([id number]) 38351 EST. PATIENT, LEVEL IV Diagnosis: EDEMA[ICD9: 782.3] Diagnosis: Cellulitis of right leg[ICD9: 682.6] Diagnosis: Allergic rhinitis[ICD9: 477.9] Rika Motta MD, [facility] CPT-4: 39239 09/08/2014 ([id number]) 91199 EST. PATIENT, LEVEL IV Diagnosis: EDEMA[ICD9: 782.3] Diagnosis: ESSENTIAL HYPERTENSION[ICD9: 401.9] Diagnosis: DIABETES TYPE II[ICD9: 250.00] Diagnosis: Cellulitis of right leg[ICD9: 682.6] Rika Motta MD, [facility] CPT-4: 64610 08/29/2014 ([id number]) 45450 EST. PATIENT, LEVEL III Diagnosis: EDEMA[ICD9: 782.3] Diagnosis: DIABETES TYPE II[ICD9: 250.00] Tessie Motta MD, [facility] CPT- 4: 29350 06/30/2014 ([id number]) 04861 EST. PATIENT, LEVEL IV Diagnosis: EDEMA[ICD9: 782.3] Diagnosis: DM W/O COMPLICATION TYPE II, UNCONTROLLED[ICD9: 250.02] Diagnosis: Sciatica[ICD9: 724.3] Tessie Motta MD, [facility] CPT-4: 68192 06/12/2014 ([id number]) 35815 EST. PATIENT, LEVEL III Diagnosis: Cellulitis, leg[ICD9: 682.6] Diagnosis: EDEMA[ICD9: 782.3] Rika Motta MD, [facility] CPT-4: 03148 05/26/2014 ([id number]) 56765 EST. PATIENT, LEVEL IV Diagnosis: DIABETES TYPE II[ICD9: 250.00] Diagnosis: Chronic sinusitis[ICD9: 473.9] Tessie Motta MD, [facility] CPT- 4: 93186 04/15/2014 ([id number]) 94670 EST. PATIENT, LEVEL IV Diagnosis: DM W/O COMPLICATION TYPE II, UNCONTROLLED[ICD9: 250.02] Diagnosis: CHRONIC SINUSITIS[ICD9: 473.9] Diagnosis: EDEMA[ICD9: 782.3] Diagnosis: Right knee pain[ICD9: 719.46] Rika Motta MD, [facility] CPT-4: 85600 03/25/2014 ([id number]) 22031 EST. PATIENT, LEVEL IV Diagnosis: Blister of leg[ICD9: 916.2] Diagnosis: EDEMA[ICD9: 782.3] Diagnosis: DM W/O COMPLICATION TYPE II, UNCONTROLLED[ICD9: 250.02] Diagnosis: ESSENTIAL HYPERTENSION[ICD9: 401.9] Rika Motta MD, [facility] CPT-4: 85984 03/03/2014 ([id number]) 69875 EST. PATIENT, LEVEL IV Diagnosis: CELLULITIS OF LEG[ICD9: 682.6] Diagnosis: Diabetes mellitus type 2, uncontrolled[ICD9: 250.02] Diagnosis: ESSENTIAL HYPERTENSION[ICD9: 401.9] Diagnosis: EDEMA[ICD9: 782.3] Tessie Motta MD, [facility] CPT-4: 26146 02/13/2014 ([id number]) 35558 EST. PATIENT, LEVEL IV Diagnosis: Diabetes mellitus type 2, uncontrolled[ICD9: 250.02] Tessie Motta MD, [facility] CPT-4: 68187 01/27/2014 ([id number]) 90802 EST. PATIENT, LEVEL III Diagnosis: OPEN WND KNEE/LEG/ANKLE[ICD9: 891.0] Diagnosis: EDEMA[ICD9: 782.3] Rika Motta MD, [facility] CPT-4: 78206 12/26/2013 ([id number]) 25631 EST. PATIENT, LEVEL III Diagnosis: Cellulitis of right leg[ICD9: 682.6] Diagnosis: OPEN WND KNEE/LEG/ANKLE[ICD9: 891.0] Rika Motta MD, [facility] CPT-4: 42151 12/12/2013 ([id number]) 01768 EST. PATIENT, LEVEL IV Diagnosis: Asthma exacerbation[ICD9: 493.92] Diagnosis: COUGH[ICD9: 786.2] Diagnosis: EDEMA[ICD9: 782.3] Rika Motta MD, [facility] CPT-4: 32840 11/14/2013 ([id number]) 27012 EST. PATIENT, LEVEL III Diagnosis: OPEN WND KNEE/LEG/ANKLE[ICD9: 891.0] Diagnosis: EDEMA[ICD9: 782.3] Rika Motta MD, [facility] CPT-4: 73879 10/21/2013 ([id number]) 12615 EST. PATIENT, LEVEL IV Diagnosis: ESSENTIAL HYPERTENSION[SNOMED: 61311530] Diagnosis: Right knee pain[ICD9: 719.46] Diagnosis: OPEN WND KNEE/LEG/ANKLE[ICD9: 891.0] Rika Motta MD, [facility] CPT-4: 90240 10/03/2013 ([id number]) Miscellaneous no charge Diagnosis: Open wound of leg[ICD9: 891.0] Rika Motta MD, [facility] CPT-4: 06362 09/27/2013 73687 EST. PATIENT, LEVEL II Diagnosis: Open wound of leg[ICD9: 891.0] Diagnosis: Wrist pain, left[ICD9: 719.43] Rika Motta MD, [facility] CPT-4: 82694 09/23/2013 ([id number]) 32805 EST. PATIENT, LEVEL IV Diagnosis: CELLULITIS OF LEG[ICD9: 682.6] Diagnosis: ESSENTIAL HYPERTENSION[SNOMED: 58534394] Diagnosis: EDEMA[ICD9: 782.3] Rika Motta MD [facility] CPT-4: 63664 09/20/2013 ([id number]) 79610 EST. PATIENT, LEVEL IV Diagnosis: Open wound of right lower leg[ICD9: 891.0] Diagnosis: DM W/O COMPLICATION TYPE II, UNCONTROLLED[SNOMED: 04338052] Diagnosis: Edema[ICD9: 782.3] Rika Motta MD [facility] CPT-4: 92203 09/10/2013 ([id number]) 73703 EST. PATIENT, LEVEL III Diagnosis: DM W/O COMPLICATION TYPE II, UNCONTROLLED[SNOMED: 63279108] Diagnosis: EDEMA[ICD9: 782.3] Tessie Motta MD [facility] CPT-4: 05159 08/19/2013 ([id number]) 62832 EST. PATIENT, LEVEL IV Diagnosis: EDEMA[ICD9: 782.3] Diagnosis: DIABETES TYPE II[SNOMED: 898878198] Diagnosis: HYPOTHYROIDISM[ICD9: 244.9] Diagnosis: LUMBAGO[ICD9: 724.2] Diagnosis: SCIATICA[ICD9: 724.3] Tessie Motta MD [facility] CPT-4: 31589 08/12/2013 ([id number]) 73181 EST. PATIENT, LEVEL IV Diagnosis: DIABETES TYPE II[SNOMED: 875431840] Diagnosis: EDEMA[ICD9: 782.3] Diagnosis: HYPOTHYROIDISM[ICD9: 244.9] Diagnosis: Encounter for long-term (current) use of other medications[ICD9: V58.69] Diagnosis: LUMBAGO[ICD9: 724.2] Rika Motta MD [facility] CPT-4: 50712 08/01/2013 ([id number]) 90438 EST. PATIENT, LEVEL III Diagnosis: Blister of right foot[ICD9: 917.2] Rika Motta MD [facility] CPT-4: 65205 07/19/2013 ([id number]) 72092 EST. PATIENT, LEVEL III Diagnosis: Cellulitis of right leg[ICD9: 682.6] Diagnosis: ESSENTIAL HYPERTENSION[SNOMED: 11122563] Diagnosis: EDEMA[ICD9: 782.3] Rika Motta MD [facility] CPT-4: 59173 07/15/2013 ([id number]) 97276 EST. PATIENT, LEVEL IV Diagnosis: DIABETES TYPE II[SNOMED: 444793957] Diagnosis: BACKACHE[ICD9: 724.5] Diagnosis: Muscle spasms of neck[ICD9: 728.85] Tessie Motta MD, [facility] CPT-4: 29240 06/27/2013 ([id number]) 41210 EST. PATIENT, LEVEL IV Diagnosis: DM W/O COMPLICATION TYPE II, UNCONTROLLED[SNOMED: 05461692] Diagnosis: EDEMA[ICD9: 782.3] Diagnosis: OBESITY[ICD9: 278.00] Diagnosis: WHEEZING[ICD9: 786.07] Tessie Motta MD, [facility] CPT-4: 89793 06/10/2013 ([id number]) 13123 EST. PATIENT, LEVEL IV Diagnosis: CHRONIC SINUSITIS[ICD9: 473.9] Diagnosis: WHEEZING[ICD9: 786.07] Diagnosis: ACUTE BRONCHITIS[ICD9: 466.0] Diagnosis: Back pain[ICD9: 724.5] Tessie Motta MD [facility] CPT-4: 18666 05/07/2013 ([id number]) 51485 EST. PATIENT, LEVEL IV Diagnosis: EDEMA[ICD9: 782.3] Diagnosis: COPD (chronic obstructive pulmonary disease) with acute bronchitis[ ICD9: 491.22] Tessie Motta MD, [facility] CPT-4: 57647 04/16/2013 ([id number]) 25727 EST. PATIENT, LEVEL IV Diagnosis: Lumbago[ICD9: 724.2] Diagnosis: DM W/O COMPLICATION TYPE II, UNCONTROLLED[SNOMED: 23203519] Diagnosis: EDEMA[ICD9: 782.3] Rika Motta MD, [facility] CPT-4: 81161 03/21/2013 ([id number]) 92060 EST. PATIENT, LEVEL IV Diagnosis: Abdominal pain[ICD9: 789.00] Diagnosis: EDEMA[ICD9: 782.3] Diagnosis: DIABETES TYPE II[SNOMED: 864626174] Tessie Motta MD, [facility] CPT-4: 95963 02/12/2013 ([id number]) 09561 EST. PATIENT, LEVEL III Diagnosis: EDEMA[ICD9: 782.3] Diagnosis: RESPIRATORY ABNORM NEC[ICD9: 786.09] Tessie Motta MD, [facility] CPT-4: 95696 02/04/2013 ([id number]) 61876 EST. PATIENT, LEVEL IV Diagnosis: Edema[ICD9: 782.3] Diagnosis: ESSENTIAL HYPERTENSION[SNOMED: 41446578] Tessie Motta MD, [facility] CPT-4: 80026 01/17/2013 ([id number]) 02148 EST. 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 PATIENT, LEVEL IV Diagnosis: Cellulitis of left leg[ICD9: 682.6] Diagnosis: DIABETES TYPE II[SNOMED: 067072948] Diagnosis: ESSENTIAL HYPERTENSION[SNOMED: 49166670] Diagnosis: EDEMA[ICD9: 782.3] Rika Motta MD, [facility] CPT-4: 62171 12/20/2012 ([id number]) 98586 EST. PATIENT, LEVEL III Diagnosis: Acute bronchitis[ICD9: 466.0] Diagnosis: COUGH[ICD9: 786.2] Tessie Motta MD, [facility] CPT-4: 91892 10/29/2012 ([id number]) 96340 EST. PATIENT, LEVEL IV Diagnosis: ESSENTIAL HYPERTENSION[SNOMED: 96672483] Diagnosis: DIABETES TYPE II[SNOMED: 896833117] Diagnosis: HYPOTHYROIDISM[ICD9: 244.9] Tessie Motta MD, [facility] CPT- 4: 86106 09/06/2012 ([id number]) 91531 EST. PATIENT, LEVEL IV Diagnosis: DIABETES TYPE II[SNOMED: 906513755] Diagnosis: ESSENTIAL HYPERTENSION[SNOMED: 43117316] Diagnosis: Diarrhea[ICD9: 787.91] Tessie Motta MD [facility] CPT-4: 20260 08/23/2012 ([id number]) 07754 EST. PATIENT, LEVEL III Diagnosis: ESSENTIAL HYPERTENSION[SNOMED: 08532730] Diagnosis: Gastroenteritis[ICD9: 558.9] Rika Motta MD, [facility] CPT-4: 48004 08/13/2012 ([id number]) 02462 EST. PATIENT, LEVEL IV Diagnosis: Diarrhea[ICD9: 787.91] Diagnosis: ESSENTIAL HYPERTENSION[SNOMED: 29983088] Diagnosis: DM W/O COMPLICATION TYPE II, UNCONTROLLED[SNOMED: 10564091] Rika Motta MD, [facility] CPT-4: 43546 08/07/2012 (24735) 84060 EST. PATIENT, LEVEL III Diagnosis: Acute sinusitis[ICD9: 461.9] Diagnosis: Thrush[ICD9: 112.0] Rika Motta MD, [facility] CPT-4: 02771 07/06/2012 ([id number]) 29851 EST. PATIENT, LEVEL IV Diagnosis: ESSENTIAL HYPERTENSION[SNOMED: 61085685] Diagnosis: DIABETES TYPE II[SNOMED: 961507598] Tessie Motta MD [facility] CPT-4: 54323 06/07/2012 ([id number]) 58884 EST. PATIENT, LEVEL IV Diagnosis: ESSENTIAL HYPERTENSION[SNOMED: 61373535] Diagnosis: ACUTE SINUSITIS[ICD9: 461.9] Diagnosis: Labial cyst[ICD9: 624.8] Tessie Motta MD, [facility] CPT-4: 64478 05/28/2012 (40387) 67551 EST. PATIENT, LEVEL IV Diagnosis: ESSENTIAL HYPERTENSION[SNOMED: 15172503] Diagnosis: EDEMA[ICD9: 782.3] Tessie Motta MD, [facility] CPT-4: 11721 05/17/2012 (24284) 08737 EST. PATIENT, LEVEL IV Diagnosis: EDEMA[ICD9: 782.3] Diagnosis: ESSENTIAL HYPERTENSION[SNOMED: 24257863] Diagnosis: Diarrhea[ICD9: 787.91] Diagnosis: ALLERGIC RHINITIS[ICD9: 477.9] Tessie Motta MD [facility] CPT- 4: 91803 05/02/2012 (86002) 26383 EST. PATIENT, LEVEL IV Diagnosis: ACUTE SINUSITIS[ICD9: 461.9] Diagnosis: ESSENTIAL HYPERTENSION[SNOMED: 40325973] Diagnosis: ALLERGIC RHINITIS[ICD9: 477.9] Tessie Motta MD [facility] CPT- 4: 12898 04/10/2012 ([id number]) 95616 EST. PATIENT, LEVEL IV Diagnosis: ESSENTIAL HYPERTENSION[SNOMED: 71230246] Diagnosis: Foreign body in foot or toe[ICD9: 917.6] Diagnosis: EDEMA[ICD9: 782.3] Tessie Motta MD [facility] CPT-4: 00010 02/27/2012 (26225) 44464 EST. PATIENT, LEVEL IV Diagnosis: CELLULITIS OF FOOT[ICD9: 682.7] Diagnosis: DIABETES TYPE II[SNOMED: 922406504] Diagnosis: EDEMA[ICD9: 782.3] Tessie Motta MD [facility] CPT-4: 75291 02/15/2012 ([id number]) 23414 EST. PATIENT, LEVEL IV Diagnosis: EDEMA[ICD9: 782.3] Diagnosis: ESSENTIAL HYPERTENSION[SNOMED: 16651855] Diagnosis: ACUTE SINUSITIS[ICD9: 461.9] Diagnosis: Dysuria[ICD9: 788.1] Tessie Motta MD [facility] CPT-4: 60030 02/01/2012 ([id number]) 99798 EST. PATIENT, LEVEL IV Diagnosis: DIABETES TYPE II[SNOMED: 282126651] Diagnosis: Diverticulitis[ICD9: 562.11] Tessie Motta MD [facility] CPT- 4: 38070 12/14/2011 (17202) 95789 EST. PATIENT, LEVEL IV Diagnosis: Nausea vomiting and diarrhea[ICD9: 787.01] Diagnosis: ESSENTIAL HYPERTENSION[SNOMED: 31498749] Diagnosis: DM W/O COMPLICATION TYPE II, UNCONTROLLED[SNOMED: 87035591] Tessie Motta MD , [facility] CPT-4: 31571 11/30/2011 (86125) 21335 EST. PATIENT, LEVEL IV Diagnosis: ESSENTIAL HYPERTENSION[SNOMED: 81446437] Diagnosis: DIABETES TYPE II[SNOMED: 310606435] Diagnosis: COUGH[ICD9: 786.2] Tessie Motta MD, [facility] CPT-4: 08071 11/17/2011 ([id number]) Patient admitted to the hospital from clinic (NO CHARGE) Diagnosis: Tachycardia[ICD9: 785.0] Diagnosis: Dyspnea[ICD9: 786.09] Diagnosis: Wheezing[ICD9: 786.07] Diagnosis: FALL AGAINST OBJECT[ICD9: E888.1] Diagnosis: ANXIETY STATE[ICD9: 300.00] Diagnosis: ESSENTIAL HYPERTENSION[SNOMED: 50692571] Diagnosis: Chronic depression[ICD9: 311] Diagnosis: Diabetes mellitus type 2, uncontrolled[SNOMED: 67715134] Tessie Motta MD, [facility] CPT-4: 88447J 11/03/2011 ([id number]) 84536 EST. PATIENT, LEVEL IV Diagnosis: DIABETES TYPE II[SNOMED: 489105350] Diagnosis: ANXIETY STATE[ICD9: 300.00] Diagnosis: DEPRESSIVE DISORDER NEC[ICD9: 311] Diagnosis: Ulcer of toe[ICD9: 707.15] Tessie Motta MD, [facility] CPT- 4: 81003 10/24/2011 ([id number]) 36369 EST. PATIENT, LEVEL IV Diagnosis: EDEMA[ICD9: 782.3] Diagnosis: ESSENTIAL HYPERTENSION[SNOMED: 67928118] Diagnosis: ANXIETY STATE[ICD9: 300.00] Tessie Motta MD [facility] CPT- 4: 85193 09/26/2011 14657 EST. PATIENT, LEVEL IV Diagnosis: EDEMA[ICD9: 782.3] Diagnosis: ESSENTIAL HYPERTENSION[SNOMED: 88987085] Rika Motta MD, [facility] CPT-4: 04832 09/20/2011 ([id number]) 20971 EST. PATIENT, LEVEL IV Diagnosis: ACUTE SINUSITIS[ICD9: 461.9] Diagnosis: Allergic rhinitis[ICD9: 477.9] Diagnosis: Cough[ICD9: 786.2] Tessie Motta MD, [facility] CPT-4: 36622 09/01/2011 ([id number]) 79348 EST. PATIENT, LEVEL IV Diagnosis: Chronic sinusitis[ICD9: 473.9] Diagnosis: Anxiety, generalized[ICD9: 300.02] Tessie Motta MD, [facility] CPT-4: 07446 08/15/2011 31494 EST. PATIENT, LEVEL IV Diagnosis: ACUTE SINUSITIS[ICD9: 461.9] Diagnosis: Tachycardia[ICD9: 785.0] Diagnosis: Anxiety[ICD9: 300.00] Diagnosis: Dehydration[ICD9: 276.51] Diagnosis: Sciatica[ICD9: 724.3] Tessie Motta MD, [facility] CPT-4: 01241 08/09/2011 47424 EST. PATIENT, LEVEL IV Diagnosis: DIABETES TYPE II[SNOMED: 277116908] Diagnosis: Sciatica[ICD9: 724.3] Diagnosis: Yeast infection[ICD9: 112.9] Tessie Motta MD, [facility] CPT- 4: 68465 08/01/2011 ([id number]) 22846 EST. PATIENT, LEVEL IV Diagnosis: DIABETES TYPE II[SNOMED: 845299245] Diagnosis: ACUTE MAXILLARY SINUSITIS[ICD9: 461.0] Diagnosis: Fibromyalgia[ICD9: 729.1] Tessie Motta MD, [facility] CPT-4: 85890 06/20/2011 65463 EST. PATIENT, LEVEL IV Diagnosis: ESSENTIAL HYPERTENSION[SNOMED: 21505734] Diagnosis: DIABETES TYPE II[SNOMED: 609113496] Diagnosis: ACUTE MAXILLARY SINUSITIS[ICD9: 461.0] Tessie Motta MD, [facility] CPT-4: 56360 04/18/2011 Plan of Care Planned Activity Notes [...] verbalized understanding. 04/27/2018 Appointment: Rika Bello WPtel: [phone] (30 min) Complex 04/27/2018 Patient Education: Patient Medication Summary Completed 04/27/2018 Appointment: Rika Bello WPtel: [phone] (15 min) Moderate 04/24/2018 Appointment: Nurse Visit [...] and return Monday for removal of IPRO Arhmfwl-fbdlfoahpu-wc changes in medications-recommend counseling-patient refuses Weakness-patient is deconditioned-refuses PT -recommend patient start walking more 04/10/2018 Appointment: Rika Bello WPtel: [phone] (15 min) Moderate 04/10/2018 Patient Education: Patient Medication Summary Completed 04/10/2018 Appointment: [facility] (15 min) Moderate 03/21/2018 Appointment: Rika Bello WPtel: [address] [place], [place] [id number] [place] (30 min) Complex 03/20/2018 Visit Plan: [...] as directed 03/12/2018 Appointment: Rika Bello WPtel: [phone] [place] (15 min) Moderate 03/12/2018 Patient Education: Patient Medication Summary Completed 03/12/2018 Patient Education: Back Pain Completed 03/12/2018 Appointment: Rika Bello WPtel: [phone] [phone] [place] (30 min) Complex 03/08/2018 Appointment: Lab [...] next refill 02/20/2018 Appointment: Rika Bello WPtel: [phone] [place] (15 min) Moderate 02/20/2018 Patient Education: Patient Medication Summary Completed 02/20/2018 Patient Education: Back Pain Completed 02/20/2018 Patient Education: Patient Medication Summary Completed 02/20/2018 Care Plan: Iron Pending 02/20/2018 Appointment: Rika Bello WPtel: [phone] [phone] [place] (30 min) Complex 02/19/2018 Appointment: Rika Bello WPtel: [phone] [phone] [place] (15 min) Moderate 02/01/2018 Visit Plan: UA negative -no culture indicated 12/14/2017 Appointment: Lab Draw 12/14/2017 Patient Education: Patient Medication Summary Completed 12/14/2017 Visit Plan: Dysuria-urinary incontinence-culture urine HTN- elevated today-monitor at home -follow up with policy checker 11/27/2017 Appointment: Rika Bello WPtel: [phone] [phone] [place] (15 min) Moderate 11/27/2017 Patient Education: [...] Completed 10/27/2017 Care Plan: SCREENINGMAMMOGRAPHYDIGITAL LOINC : 79017-9 Pending 10/27/2017 Appointment: Arlette Skelton WPtel: [phone] [facility] [place] (15 min) Moderate 10/03/2017 Appointment: Arlette Skelton WPtel: [phone] [facility] (15 min) Moderate 10/02/2017 Appointment: Rika Bello WPtel: [phone] [phone] [place] (30 min) Complex 09/29/2017 Visit Plan: [...] acutely worsened. 09/27/2017 Appointment: Arlette Skelton WPtel: [phone] [facility] [place] (30 min) Complex 09/27/2017 Patient Education: Patient Medication Summary Completed 09/27/2017 Care Plan: CT HEAD/BRAIN W/O DYE LOINC : 97599-3 Pending 09/27/2017 Visit Plan: DM-patient noncompliant with [...] over- medication. 09/15/2017 Appointment: Rika Bello WPtel: [phone] [phone] (30 min) Complex 09/15/2017 Patient Education: Patient Medication Summary Completed 09/15/2017 Appointment: Rika Bello WPtel: [phone] [phone] (30 min) Complex 09/12/2017 Appointment: Rika Bello WPtel: [phone] (30 min) Complex 09/07/2017 Visit Plan: Hvc-hzzjppocjt-ji changes Anemia-check cbc today Dental infection-on clindamycin per Dr Bryant-start probiotics Also needs to monitor blood sugars closely 08/18/2017 Appointment: Rika Bello WPtel: [phone] [phone] (30 min) Complex 08/18/2017 Patient Education: Patient [...] not resolve 08/03/2017 Appointment: [phone] (30 min) Complex 08/03/2017 Patient Education: [...] symptoms worsen 07/27/2017 Appointment: [phone] (30 min) Complex 07/27/2017 Patient Education: [...] medications 06/13/2017 Appointment: [phone] (15 min) Moderate 06/13/2017 Patient Education: Patient Medication Summary Completed 06/13/2017 Visit Plan: Dental abscess - will send RX - pt is to keep her appointment with her dentist - pt is to notify clinic if symptoms do not improve, if they worsen, or with any other acute changes, questions, or concerns. 04/21/2017 Appointment: [facility]el[facility]el[phone] [facility] (30 min) Complex 04/21/2017 Patient Education: [...] Q HS RESCHEDULE APPT WITH DR YANNA HoNiyfxhogr-jviwnzjhz-pn for bactroban ointment provided and instructed on use YED-yuhczdsara-ju change in medications Mildly elevated liver enzymes-discussed with Dr motta-suspect due to gabapentin-will monitor levels Gait instability-again recommend patient use walker as well as PT 04/18/2017 Appointment: Rika Bello WPtel: [address] [place] [address] (30 min) Complex 04/18/2017 Patient Education: Patient [...] become less controlled. Low potassium- check labs KFN-avhjoteoim-so changes Afib-check digoxin level with labs Abdominal [...] become less controlled. Low potassium- check labs ULP-mpehvcncjw-mg changes Afib-check digoxin level with labs Abdominal pain-refill levsin for prn use -call if pain uncontrolled 03/27/2017 Appointment: Rika Bello WPtel: [address] [place] [address] (30 min) Complex 03/27/2017 Patient Education: Patient Medication Summary Completed 03/27/2017 Appointment: Rika Bello WPtel: [address] [place] [address] (30 min) Complex 03/24/2017 Visit Plan: Hypertension - well controlled - continue with current medications, continue with no added salt diet. Pt has been encouraged to exercise daily. The pt has been advised to call the office if there are any acute concerns about change in blood pressure readings at home. DM-uncontrolled- discussed strict diet and exercise with patient Low qhtscrikc-vmornyvn-ptjqrjyp to monitor Abd xdwi-fgwpuopk-fq changes 02/27/2017 Appointment: Rika Bello WPtel: [address] [place], [place] [id number] [place] [id number] (30 min) Complex 02/27/2017 Patient Education: Patient [...] this regimen. 02/21/2017 Appointment: Rika Bello WPtel: [facility] (30 min) Complex 02/21/2017 Patient Education: Patient Medication Summary Completed 02/21/2017 Appointment: Rika Bello WPtel: [phone] (30 min) Complex 02/20/2017 Visit Plan: Generalized [...] labs on Monday02/17/2017 Appointment: Rika Bello WPtel: [facility]6 [phone] (30 min) Complex 02/17/2017 Patient Education: Patient Medication Summary Completed 02/17/2017 Visit Plan: COPD-recent hospitalization with pneumonia- symptoms improved-discussed continuous oxygen use at home-appt with Dr Odonnell tomorrow Afib-check digoxin level-patient just finished zpack Diarrhea-continue probiotics-check stool if diarrhea persists DM-bring log to next appt 02/13/2017 Appointment: Rika Bello WPtel: [address] [place], [place] [phone] (30 min) Complex 02/13/2017 Patient Education: Patient Medication Summary Completed 02/13/2017 Patient Education: Hypertension Completed 02/13/2017 Visit Plan: DM-very uncontrolled-refer to Dr Raines for management RIght shoulder and arm pain-fell 5 days ago-xray shoulder and arm Chronic sinusitis-RX for Dr Cervantes's compound gentamicin nasal spray 01/30/2017 Appointment: Rika Bello WPtel: [address] [place], [place] [phone] (30 min) Complex 01/30/2017 Patient Education: Patient Medication Summary Completed 01/30/2017 Care Plan: Referral Order SNOMED-CT : [id number] Pending 01/30/2017 Visit Plan: Hypertension - well [...] every night DM-check Hgb A1C Hypothyroidism-check level Bkmnstr-hpnavxndvw-wiy well controlled- increase cymbalta-recommend counseling 01/16/2017 Appointment: Rika Bello WPtel: [address] [place], [place] [phone] (30 min) Complex 01/16/2017 Patient Education: Patient Medication Summary Completed 01/16/2017 Appointment: R[facility]ello [facility]Ptel: [phone] (30 min) Complex 01/10/2017 Visit Plan: Sinusitis [...] concerns. 12/13/2016 Appointment: Arlette Skelton WPtel: [phone] [facility] (30 min) Complex 12/13/2016 Patient Education: [...] completely heal. 11/11/2016 Appointment: Rika Bello WPtel: [address] [place], [place] [phone] (30 min) Complex 11/11/2016 Patient Education: Patient Medication Summary Completed 11/11/2016 Care Plan: BMI Above normal followup SELF-MGMT EDUC & TRAIN 1 PT Pending 2016 Appointment: Rika Bello WPtel: [address] [place], [place] [phone] [place] (30 min) Complex 11/08/2016 Visit Plan: Shingles-rash scabbed-no further treatment indicated-patient to call if pain uncontrolled N/V-check labs including UA DM- check labs today Thrush-RX for nystatin 10/28/2016 Appointment: Rika Bello WPtel: [address] [place], [place] [phone] (30 min) Complex 10/28/2016 Patient Education: Patient Medication Summary Completed 10/28/2016 Patient Education: Obesity Completed 10/28/2016 Appointment: Rika Bello WPtel: [address] [place], [place] [phone] [place] (30 min) Complex 10/25/2016 Appointment: Lab Draw 10/21/2016 Patient Education: Patient Medication Summary Completed 10/21/2016 Visit Plan: Right knee pain-patient to schedule appt with Dr Allison Garcia-right arm-concerned for shingles-RX for acyclovir provided and instructed on use-call if symptoms do not resolve or if any worse. 10/13/2016 Appointment: Rika Bello WPtel: [address] [place], [place] [phone] [place] (30 min) Complex 10/13/2016 Patient Education: Patient Medication Summary Completed 10/13/2016 Appointment: Rika Bello WPtel: [address] [place], [place] [phone] [place] (30 min) Complex 10/11/2016 Appointment: Rika Bello WPtel: [phone] [phone] [facility] - Annual Wellness Visit 10/04/2016 Visit Plan: [...] as directed. 09/23/2016 Appointment: Rika Bello WPtel: [facility]2 [phone] (15 min) Moderate 09/23/2016 Patient Education: [...] 09/13/2016 Care Plan: Referral Order SNOMED-CT : [id number] Pending 09/13/2016 Appointment: Rika Bello WPtel: [phone] [facility] [place] [address] (30 min) Complex 09/09/2016 Appointment: Rika Bello WPtel: [phone] [phone] (30 min) Complex 09/08/2016 Visit Plan: Hypertension [...] Anemia-check CBC 08/09/2016 Appointment: Rika Bello WPtel: 1012 [phone] (30 min) Complex 08/09/2016 Patient Education: Patient [...] control. Yeast infection -rx for nystatin powder HTAF-pzlspepmb-njohul pneumonia -afib-patient is oxygen dependent due to severely compromised pulmonary and cardiac systems-will send orders to [facility] to continue oxygen 07/26/2016 Visit Plan: Diabetes [...] control. Yeast infection -rx for nystatin powder WAMO-gwornwzgy-ymeucm pneumonia -afib-patient is oxygen dependent due to severely compromised pulmonary and cardiac systems-will send orders to [facility] to continue oxygen 07/26/2016 Visit Plan: Diabetes [...] control. Yeast infection -rx for nystatin powder UQFR-vcayjozpq-vdeppp pneumonia -afib-patient is oxygen dependent due to severely compromised pulmonary and cardiac systems-will send orders to [facility] to continue oxygen 07/26/2016 Appointment: Rika Bello WPtel: [phone] [phone] [place] (30 min) Complex 07/26/2016 Patient Education: Patient Medication Summary Completed 07/26/2016 Appointment: Rika Bello WPtel: [phone] [phone] [place] (30 min) Complex 07/22/2016 Appointment: Rika Bello WPtel: [phone] [phone] [place] (30 min) Complex 07/18/2016 Appointment: Rika Bello WPtel: [phone] [phone] [place] (30 min) Complex 07/01/2016 Appointment: Lab Draw 06/24/2016 Patient Education: Patient Medication Summary Completed 06/24/2016 Appointment: Rika Bello WPtel: [phone] [phone] [place] (30 min) Complex 2016 Visit Plan: [...] Completed 05/24/2016 Appointment: [facility]ello WPtel: [phone] (30 min) Complex 05/17/2016 Visit Plan: [...] control. 04/19/2016 Appointment: Rika Bello WPtel: [phone] [phone] [place] (30 min) Complex 04/19/2016 Patient Education: Patient Medication Summary Completed 04/19/2016 Patient Education: Obesity Completed 04/19/2016 Appointment: Rika Bello WPtel: [phone] [phone] (30 min) Complex 04/18/2016 Visit Plan: [...] to allow for greater blood glucose control. ZVU-crjubdnmgj-ug changes in medications at this time. Dysuria-UA negative-needs pelvic exam due to pt c/o vaginal discharge 04/11/2016 Appointment: Rika Bello WPtel: [phone] [phone] (30 min) Complex 04/11/2016 Patient Education: Patient Medication Summary Completed 04/11/2016 Patient Education: Obesity Completed 04/11/2016 Appointment: Rika Bello WPtel: [phone] [phone] (30 min) Complex 04/08/2016 Visit Plan: Chronic [...] peripheral edema. 03/11/2016 Appointment: Rika Bello WPtel: [address] [place], [place] [phone] (30 min) [facility] 03/11/2016 Patient Education: Patient Medication Summary Completed [...] on use 02/26/2016 Appointment: Rika Bello WPtel: [address] [place] [phone] (30 min) Complex 02/26/2016 Patient Education: Patient Medication Summary Completed 02/26/2016 Appointment: Rika Bello WPtel: [address] [place], [place] [phone] (30 min) Complex 02/25/2016 Appointment: Rika Bello WPtel: [facility]5 [phone] (30 min) Complex 02/23/2016 Appointment: Lab Draw [...] to mold 02/02/2016 Appointment: Rika Bello WPtel: [address] [place], [place] [phone] (30 min) Complex 02/02/2016 Patient Education: Patient Medication Summary Completed 02/02/2016 Appointment: Tessie Motta WPtel: [facility]5 [facility] (15 min) Moderate 01/21/2016 Appointment: Rika Bello WPtel: [address] [place], [place] [phone] (30 min) Complex 01/14/2016 Visit Plan: Hypertension [...] Patient Medication Summary Completed 12/17/2015 Visit Plan: Xsvicfh-tnyklkzoh-mjmr head injury on 12/05-did not go to ER-patient sent for STAT CT scan of head-schedule appt with Dr Dyer Adrenal insufficiency-patient suddenly stopped prednisone-instructed patient to restart and taper prednisone as directed Rib lkrt-ewbfy-lngsmv fall-xray ribs 12/08/2015 Appointment: Rika Bello WPtel: [phone] [phone] [place] (15 min) Moderate 12/08/2015 Appointment: Rika Bello WPtel: [phone] [phone] [place] (30 min) Complex 12/08/2015 Patient Education: Patient Medication Summary Completed 12/08/2015 Care Plan: COMPLETE CBC AUTOMATED LOINC : 30482-8 Pending 12/08/2015 Visit Plan: Hypertension - well [...] 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 Mejia 10/27/2015 Appointment: Rika Bello WPtel: [facility] [address] (30 min) Complex 10/27/2015 Patient Education: Patient Medication Summary Completed 10/27/2015 Patient Education: Obesity Completed 10/27/2015 Care Plan: Referral Order SNOMED-CT : [id number] Pending 10/27/2015 Referral: Matt Pavon HPtel:[phone] Referral Initiated 10/21/2015 Visit Plan: Medicare [...] stomach pain. 09/29/2015 Appointment: Rika Bello WPtel: [facility]7 [phone] MCR - Welcome to Medicare visit 09/29/2015 Patient Education: Patient Medication Summary Completed 09/29/2015 Patient Education: Obesity Completed 09/29/2015 Care Plan: Referral Order SNOMED-CT : [id number] Pending 09/29/2015 Care Plan: BMI Above normal [...] one month for weight check. 08/10/2015 Appointment: [facility] - Welcome to Medicare visit 08/10/2015 Patient [...] min) Complex 05/05/2015 Appointment: Rika Bello WPtel: [phone] (30 min) Complex 04/27/2015 Visit Plan: [...] Hypertension Completed 03/03/2015 Appointment: Rika Bello WPtel: [phone] [facility] (30 min) Complex 02/24/2015 Appointment: (30 min) Complex 01/29/2015 Appointment: Tessie Motta WPtel: [phone] [facility] [place] (15 min) Moderate 01/22/2015 Visit Plan: Blister of right lower leg-fluids removed with #27 gauze needle and compression dressing applied-refer to wound care for evaluation and management-patient is at high risk of developing large ulcer due to diabetes, noncompliance and poor hygiene. Rash right leg-start oral abx and bactroban as directed Idesx-zdueiwbpykbc-cfh markie wraps, elevate leg, and again instructed [...] out. 01/01/2015 Appointment: Tessie Motta WPtel: [phone] [facility] (15 min) Moderate 01/01/2015 Patient Education: Patient [...] Care Plan: COMPLETE CBC AUTOMATED LOINC : 99594-9 Ordered 11/04/2014 Care Plan: URINALYSIS NONAUTO W/O SCOPE LOINC : 35812-0 Ordered 11/04/2014 Appointment: Follow up 10/07/2014 Visit Plan: Edema - pt has been advised to elevate legs to prevent dependent edema, compression has been recommended to help to naturally decrease peripheral edema. Diuretic use has been discussed and pt has been instructed in appropriate use of such medication as necessary to further attempt to reduce peripheral edema. Qrptbdrenr-jgjzmucy-wc change in treatment- continue compression hose-decrease salt/sodium in diet-call if symptoms worsen or do not resolve Cmhxlduey-ibducpl-icjppder nasonex to twice daily as directed 09/08/2014 [...] they worsen. 06/12/2014 Appointment: Rika Bello WPtel: [phone] Follow up 06/12/2014 Patient Education: Patient Medication Summary Completed 06/12/2014 Patient Education: .Amazing charts Exercise for Sciatica Completed 06/12/2014 Care Plan: COMPLETE CBC AUTOMATED LOINC : 62896-3 Ordered 06/12/2014 Visit Plan: Cellulitis - continue [...] Completed 05/26/2014 Appointment: Tessie Motta WPtel: [phone] Lab Draw 04/21/2014 Patient Education: Patient Medication [...] home. 02/13/2014 Appointment: Tessie Motta WPtel: [phone] [facility] Follow up 02/13/2014 Patient Education: Patient Medication [...] daily. 01/27/2014 Appointment: Tessie Motta WPtel: [phone] [place] Follow up 01/27/2014 Patient Education: Patient Medication Summary Completed 01/27/2014 Appointment: Rika Bello WPtel: [facility]1 [phone] [place] Follow up 01/02/2014 Visit Plan: Open wound of dft-pccxqofb-jzkbnxxk with dressing changes as directed-call for increase [...] Summary Completed 12/26/2013 Appointment: Tessie Motta WPtel: [facility]5 [facility] Follow up 12/24/2013 Visit Plan: Open wound of right leg-debrided today in the office-instructed on wound care-follow up as directed. Call with any questions, concerns, or worsening symptoms. Culture of wound today in the office-RX for abx sent to patient's pharmacy and instructed on use. Patient verbalized understanding of plan. 12/12/2013 Appointment: Rika Bello WPtel: [facility]5 [phone] Other 12/12/2013 Patient Education: Patient Medication Summary Completed 12/12/2013 Appointment: Tessie Motta WPtel: [address] [place], [place] [phone] Follow up 11/20/2013 Visit Plan: negative ua 11/18/2013 Appointment: Tessie Motta WPtel: [address] [place], [place] [phone] Lab Draw 11/18/2013 Patient Education: Patient Medication [...] Completed 11/14/2013 Visit Plan: Open wound right sir-pqtggf-qytl if opens up Edema - pt has been advised to elevate legs to prevent dependent edema, compression has been recommended to help to naturally decrease peripheral edema. Diuretic use has been discussed and pt has been instructed in appropriate use of such medication as necessary to further attempt to reduce peripheral edema. 10/21/2013 Appointment: Rika Bello WPtel: [address] [place], [place] [phone] Follow up 10/21/2013 Patient Education: Patient Medication Summary Completed 10/21/2013 Appointment: Rika Bello WPtel: [address] [place], [place] [phone] Follow up 10/17/2013 Appointment: Tessie Motta WPtel: [address] [place], [place] [phone] Follow up 10/10/2013 Visit Plan: Hypertension - [...] for pain. 10/03/2013 Appointment: Rika Bello WPtel: [facility]5 [phone] Follow up 10/03/2013 Patient Education: Patient Medication [...] of plan. 09/23/2013 Appointment: Tessie Motta WPtel: [facility]5 [facility] [place] Nurse Visit 09/23/2013 Patient Education: Patient [...] 2 WEEKS. 09/20/2013 Appointment: Rika Bello WPtel: [phone] [place] Follow up 09/20/2013 Patient Education: Patient Medication Summary Completed 09/20/2013 Patient Education: Hypertension Completed 09/20/2013 Appointment: Tessie Motta WPtel: [address] [place] [address] [place] Follow up 09/16/2013 Visit Plan: Edema [...] verbalized understanding. 09/10/2013 Appointment: Rika Bello WPtel: [facility] [address] Other 09/10/2013 Patient Education: Patient Medication Summary Completed 09/10/2013 Appointment: Rika Bello WPtel: [address] Follow up 09/02/2013 Visit Plan: Diabetes [...] peripheral edema. 08/19/2013 Appointment: Rika Bello WPtel: [facility]4 [address] Other 08/19/2013 Patient Education: Patient Medication Summary [...] as scheduled 08/01/2013 Appointment: Rika Bello WPtel: [facility]5 [phone] [place] Follow up 08/01/2013 Patient Education: Patient Medication Summary Completed 08/01/2013 Appointment: Rika Bello WPtel: [phone] [place] Follow up 07/25/2013 Appointment: Tessie Motta WPtel: [facility]5 [facility] [place] Follow up 07/25/2013 Visit Plan: Bister of foot-dressing changes discussed with patient and instructed her to keep her foot clean and dry-STOP WEARING FLIP FLOPS as they are causing friction over blistered area. Keep follow up appointment as scheduled. Call for redness, drainage or other s/s of infection. 07/19/2013 Appointment: Rika Bello WPtel: [address] [place] [address] Other 07/19/2013 Patient Education: Patient Medication Summary [...] peripheral edema. 07/15/2013 Appointment: Rika Bello WPtel: [address] [place] [address] Other 07/15/2013 Patient Education: Patient Medication Summary Completed 07/15/2013 Patient Education: Hypertension Completed 07/15/2013 Appointment: Rika Bello WPtel: [address] [place], [place] [phone] Follow up 07/01/2013 Appointment: Rika Bello WPtel: [address] [place] [address] Lab Draw 06/28/2013 Patient Education: Patient Medication [...] 900mg tid. 06/27/2013 Appointment: Tessie Motta WPtel: 1015 [facility] Other 06/27/2013 Patient Education: Patient Medication Summary Completed 06/27/2013 Appointment: Tessie Motta WPtel: 1010 [facility] Other 06/24/2013 Visit Plan: Diabetes Mellitus - [...] THE AFTERNOON. 06/10/2013 Appointment: Tessie Motta WPtel: 1018 [facility] Follow up 06/10/2013 Patient Education: Patient Medication Summary Completed 06/10/2013 Appointment: RoannTessie WPtel: 1015 [facility] Follow up 06/06/2013 Visit Plan: Sinusitis - [...] worsen. 05/07/2013 Appointment: Tessie Motta WPtel: 1015 [facility] Follow up 05/07/2013 Patient Education: Patient Medication Summary Completed 05/07/2013 Appointment: Tessie Motta WPtel: 1015 [facility] Follow up 04/30/2013 Visit Plan: Edema - [...] acute changes. 04/16/2013 Appointment: Tessie Motta WPtel: [address] [place], [place] [phone] Follow up 04/16/2013 Patient Education: Patient Medication Summary Completed 04/16/2013 Appointment: Tessie Motta WPtel: [facility]5 [facility] Follow up 04/04/2013 Visit Plan: Lumbago-continue physical [...] peripheral edema. 03/21/2013 Appointment: Rika Bello WPtel: [facility]5 [phone] Follow up 03/21/2013 Patient Education: Patient Medication Summary Completed 03/21/2013 Appointment: Tessie Motta WPtel: [facility]5 [facility] Follow up 03/20/2013 Appointment: Tessie Motta WPtel: [address] [place], [place] [phone] Follow up 03/05/2013 Visit Plan: Edema-significantly improved- [...] less controlled. 02/12/2013 Appointment: Rika Bello WPtel: [facility]5 [phone] [facility] follow up 02/12/2013 Patient Education: Patient Medication [...] Dyspnea - recommended pt to see new manager post when he gets to [facility] for further evaluation and work-up. 02/04/2013 Appointment: Tessie Motta WPtel: [address] [place], [place] [phone] Follow up 02/04/2013 Patient Education: Patient Medication [...] not improve. 01/17/2013 Appointment: Rika Bello WPtel: [facility]5 [phone] Follow up 01/17/2013 Patient Education: Patient Medication Summary Completed 01/17/2013 Patient Education: Hypertension Completed 01/17/2013 Appointment: Tessie Motta WPtel: [facility]5 [facility] Follow up 01/16/2013 Appointment: Tessie Motta WPtel: [address] [place] [address] Follow up 01/10/2013 Appointment: Rika Bello WPtel: [address] [place], [place] [phone] Lab Draw 01/01/2013 Patient Education: Patient Medication [...] Hypothyroidism-check labs 12/31/2012 Appointment: Rika Bello WPtel: [address] [place], [place] [phone] Follow up 12/31/2012 Appointment: Rika Bello WPtel: [address] [place], [place] [phone] Sick 12/31/2012 Patient Education: Patient Medication Summary [...] Check labs. 12/20/2012 Appointment: Rika Bello WPtel: [address] [place], [place] [phone] [place] [address] Sick 12/20/2012 Patient Education: Patient Medication Summary Completed 12/20/2012 Patient Education: Hypertension Completed 12/20/2012 Appointment: Tessie Motta WPtel: [address] [place] [address] Lab Draw 11/05/2012 Patient Education: Patient Medication Summary Completed 11/05/2012 Visit Plan: Bronchitis - acute case of bronchitis identified. Pt has been given antibiotics, breathing treatments as appropriate, and pt has been instructed to call if symptoms are not improved, or if symptoms acutely worsen. 10/29/2012 Appointment: Tessie Motta WPtel: [address] [place], [place] [phone] Sick 10/29/2012 Patient Education: Patient Medication Summary Completed 10/29/2012 Visit Plan: Joint Injection-left SI joint - Pt was given post - injection instructions. The pt has been advised to use antiinflammatories post injection today, ice to the injected site, call if redness, warmth, or increased pain occurs at the site of injection. 09/21/2012 Appointment: Rika Bello WPtel: [facility] [address] Follow up 09/21/2012 Patient Education: Patient Medication [...] control. 09/06/2012 Appointment: Tessie Motta WPtel: [phone] Follow up 09/06/2012 Patient Education: Patient Medication [...] readings are starting to become less controlled. Imcqjlbt-cccswqaz-hjskiciu probiotic-continue to hold metformin and repeat labs before appt in 2 weeks. Call for abd pain, worsening diarrhea, or other concerns. 08/23/2012 Appointment: Tessie Motta WPtel: [facility] Follow up 08/23/2012 Patient Education: Patient Medication [...] PLAN. 08/13/2012 Appointment: Rika Bello WPtel: 1015 [phone] Follow up 08/13/2012 Patient Education: Patient Medication [...] concerns. 08/07/2012 Appointment: R[facility]ello WPtel: [phone] [place] Other 08/07/2012 Patient Education: Patient Medication Summary Completed 08/07/2012 Patient Education: Hypertension Completed 08/07/2012 Visit Plan: UA-sent for culture 07/19/2012 Appointment: Rika Bello WPtel: 1015 [phone] [place] Lab Draw 07/19/2012 Patient Education: Patient [...] directed 07/06/2012 Appointment: Rika Bello WPtel: 1015 [facility] Sick 07/06/2012 Patient Education: Patient Medication Summary [...] given today 06/07/2012 Appointment: Tessie Motta WPtel: 1013 [facility] Follow up 06/07/2012 Appointment: Tessie Motta WPtel: [facility] [place] Follow up 06/07/2012 Patient Education: Patient [...] days. 05/28/2012 Appointment: Rika Bello WPtel: [facility] Follow up 05/28/2012 Patient Education: Patient [...] edema. 05/17/2012 Appointment: Rika Bello WPtel: [facility]5 [phone] [facility] Follow UP 05/17/2012 Patient Education: Patient Medication [...] office 05/02/2012 Appointment: Tess[facility] Motta [facility]el[phone] Follow up 05/02/2012 Patient Education: Patient Medication Summary Completed 05/02/2012 Patient Education: Hypertension Completed 05/02/2012 Appointment: Tess[facility] Motta [facility]Ptel[phone] Follow up 04/25/2012 Visit Plan: Sinusitis - [...] concerns. 04/10/2012 [facility]ment[phone] Follow up 04/10/2012 Patient Education: Patient [...] on Monday02/27/2012 Appointment: [facility]el[phone] Follow up 02/27/2012 Patient Education: Patient [...] to thighs. 02/15/2012 Appointment: Rika Bello WPtel: [phone] Follow up 02/15/2012 Patient Education: Patient Medication [...] toes to thighs. RX sent to [facility]. Chest xray at the hospital [...] of urine. 02/01/2012 Appointment: Rika Bello WPtel[phone] [phone] Other 02/01/2012 Patient Education: Patient Medication [...] left buttocks 12/14/2011 Appointment: Tessie Motta WPtel: [phone] [facility] Other 12/14/2011 Patient Education: Patient Medication Summary Completed 12/14/2011 Appointment: Tessie Motta WPtel: [facility]7 [facility] Follow up 12/08/2011 Visit Plan: N/V/D - [...] less controlled. 11/30/2011 Appointment: Rika Bello WPtel: [phone] Other 11/30/2011 Patient Education: Patient Medication Summary [...] to her chronic back pain. 11/17/2011 Appointment: Kalia Tessie WPtel: [phone] [facility] Other 11/17/2011 Patient Education: Patient Medication Summary [...] - uncontrolled - will consult her primary policy checker for assistance with control her her heart rate. Ulcer of toe - continue with topical antibiotics as previously directed, return to clinic as previously directed, call for acute change in symptoms, worsening redness, warmth, discharge. 11/03/2011 Appointment: Tess[facility] Motta [facility]Ptel[phone] Other 11/03/2011 Patient Education: Patient Medication Summary [...] warmth, discharge. 10/24/2011 Appointment: Tess[facility] Motta WPtel: [phone] [place] Other 10/24/2011 Patient Education: Patient Medication [...] with lymphoma. 09/26/2011 Appointment: Rika [facility]ello [facility]Ptel[phone] [place] Other 09/26/2011 Patient Education: Patient [...] Hypertension Completed 2011 Appointment: Tessie Motta WPtel: [address] [place] [address] Other 09/05/2011 Visit Plan: Sinusitis - Pt [...] the medication. 09/01/2011 Appointment: Tessie Motta WPtel: [address] [place] [address] Other 09/01/2011 Patient Education: Patient Medication Summary Completed 09/01/2011 Visit Plan: Sinusitis - continue with ciprofloxacin and start on corcidin HBP. Anxiety - start the xanax 0.5mg 1/2 pill twice daily. 08/15/2011 Appointment: Tessie Motta WPtel: [address] [place] [address] Other 08/15/2011 Appointment: Tessie Motat WPtel: [address] [place] [address] Other 08/15/2011 Patient Education: Patient Medication Summary [...] at the hospital. 08/09/2011 Appointment: Rika Bellol: [address] [place] [address] Other 08/09/2011 Patient Education: Patient Medication Summary [...] symptoms do not resolve 08/01/2011 Appointment: Rika Bellotel: [facility] [place] [id number] Other 08/01/2011 Patient Education: Patient Medication Summary Completed 08/01/2011 Appointment: Rika Bellol: [address] [place], [place] [id number] Other 07/26/2011 Appointment: KaliaTessie WPtel: [phone] Other 07/18/2011 Visit Plan: Diabetes Mellitus [...] sparingly. 06/20/2011 Appointment: Tessie Motta WPtel: [phone] [facility]66[facility] Other 06/20/2011 Patient Education: [...] month. 04/18/2011 Appointment: Tessie Motta WPtel: [phone] Other 04/18/2011 Patient Education: Patient Medication Summary Completed 04/18/2011 Patient Education: High Blood Pressure: Essential Hypertension Completed 2010 Appointment: Tessie Motta WPtel: [facility] Other 04/12/2011 Appointment: Tessie Motta WPtel: [address] [place] [address] Other 02/16/2011 Referral: Matt Pavon HPtel:[phone] Referral Initiated Referral: Yareli Raines Referral [...] change in symptoms, worsening redness, warmth, discharge. Bmwnqpmi-thmxtaqvcffb-wbewt labs today-patient has been given orders multiple [...] leg-start oral abx and bactroban as directed Tumvd-phcjpuuwjxye-vud markie wraps, elevate leg, and again instructed [...] drainage or other s/s of infection. . Vpc-jzjgfukbda-ov changes Anemia-check cbc today Dental infection-on clindamycin [...] change in blood pressure readings at home. GN-bkeceovqjfne-iiyydndrx strict diet and exercise with patient Low hnfdrttuj-cqahkrcg-kijenaud to monitor Abd bwrm-iigisyjh-fp changes FOR CHOLESTEROL - THE NEW DOSE [...] readings are starting to become less controlled. Eaaglyeh-ejoedmvk-uughuafu probiotic-continue to hold metformin and repeat labs [...] Raines's treatment plan with Monae and Jose today -recommend they discuss short actin insulins [...] HTN-elevated today-monitor at home -follow up with policy checker . Open wound of bcc-pmhtpzqa-veucdnqy with dressing changes as directed-call for increase [...] symptom management sparingly. . Open wound right rqe-pfawuq-xwhd if opens up Edema - pt has been advised to elevate legs to prevent dependent edema, compression has been recommended to help to naturally decrease peripheral edema. Diuretic use has been discussed and pt has been instructed in appropriate use of such medication as necessary to further attempt to reduce peripheral edema. . Cgpsqsi-viihbvobb-wtfc head injury on 12/05-did not go to ER-patient sent for STAT CT scan of head-schedule appt with Dr Dyer Adrenal insufficiency-patient suddenly stopped prednisone-instructed patient to restart and taper prednisone as directed Rib vawy-hykrj-snkwdd fall-xray ribs START CHECKING BLOOD SUGARS!!!! BRING [...] to allow for greater blood glucose control. JBP-olzxczonus-ku changes in medications at this time. Dysuria-UA [...] - uncontrolled - will consult her primary policy checker for assistance with control her her heart [...] with results.Patient and verbalized understanding of plan. UXX-lvbwxphignx-jzeia labs-monitor blood pressure and heart rate closely- [...] [facility]. Start it today. . Sinusitis - Pt [...] for diflucan-call if symptoms do not resolve [place] balm over the counter for the knee. [...] to further attempt to reduce peripheral edema. 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 refer to [...] a prescription for lasix and potassium to [facility]. Take 2 TABLETS of LASIX and 2 [...] toes to thighs. RX sent to patient's [facility]. Chest xray at the hospital [...] control. Yeast infection -rx for nystatin powder KJFH-cmxnwwneu-nxmvke jnhqftjlk-vrhg-vkelfev is oxygen dependent due to severely compromised pulmonary and cardiac systems-will send orders to [facility] to continue oxygen . Diabetes Mellitus - [...] control. Yeast infection -rx for nystatin powder JSWB-abbfhxpjy-pcjodm eyayvtktq-rmbn-vcdbgjb is oxygen dependent due to severely compromised pulmonary and cardiac systems-will send orders to [facility] to continue oxygen . Diabetes Mellitus - [...] control. Yeast infection -rx for nystatin powder PQHG-psdkgpvce-rgccwr ggtuadjwy-ecly-rwirsob is oxygen dependent due to severely compromised pulmonary and cardiac systems-will send orders to [facility] to continue oxygen . Diabetes Mellitus - [...] and return Monday for removal of IPRO Xjzxlrt-csvtucolzf-dn changes in medications-recommend counseling-patient refuses Weakness-patient is [...] your appt with her -she is a chief specialist le[facility] . Diabetes Mellitus - ucontrolled- I have [...] to become less controlled. Low potassium-check labs TZU-slycbirlvm-tw changes Afib-check digoxin level with labs Abdominal pain-refill levsin for prn use -call if pain uncontrolled DR Yareli Raines-you need to reschedule your appt with her -she is a chief specialist le[facility] . Diabetes Mellitus - ucontrolled- I have [...] to become less controlled. Low potassium-check labs WVZ-gcbkyeobtf-mt changes Afib-check digoxin level with labs Abdominal [...] PAIN MANAGEMENT FOR INJECTIONS STOP BY [facility] [employer] FOR NEW CPAP SUPPLIES . Hypertension - [...] every night DM-check Hgb A1C Hypothyroidism-check level Lagkrsb-bxojphfzyl-pwf well controlled-increase cymbalta-recommend counseling . Diabetes Mellitus [...] she needs to...RESCHEDULE APPT WITH DR RAINES UOV-xzcwpjvtju-ym change in medications CPAP NEBULIZER CHECK UA [...]
--- OUTSIDE RECORDS SUMMARY | 2018-06-04 14:36 | XMS REPORT | CCD ---
Author Author [facility]ie [facility] Organization [facility] Address [address] [place] [address] Phone Care Team Providers [employer] Counter [employer] Person Name Role Phone Tessie Motta PP Unavailable CCM Unavailable Summary Purpose Interface Exchange Insurance Providers Payer name Policy type / Coverage type Covered constitution party ID Effective Begin Date Effective End Date WPS Medicare Part B Medicare Part B [id number] 2015 Unknown [facility] Medicare Part B [id number] Unknown Family history Son Diagnosis Age At [...] College Graduate 08/21/[address]: 902102220 Never smoker 02/11/[address]: 762935947 Never drinks alcohol 02/11/2011 Has the patient ever used illegal drugs? Unknown Has never used illegal drugs 02/11/2011 Allergies, Adverse Reactions, Alerts Substance Reaction Codes Entered Date Inactivated Date Status CODEINE RxNorm: 2670 02/11/2011 No Inactive Date Active * NO KNOWN FOOD ALLERGIES Unknown 02/01/2012 No Inactive Date Active cefdinir RxNorm: 83871 08/07/2012 No Inactive Date Active PENICILLINS Unknown [...] Instructions Tessalon Perles 100 mg capsule RxNorm: 792012 Capsule(s) Capsule(s) 2 Capsule(s) PO TID as needed 05/03/2018 No Stop Date Active FreeStyle Test strips RxNorm: USE ONE STRIP TO CHECK GLUCOSE 4 TIMES DAILY 04/30/2018 No Stop Date Active promethazine 25 mg tablet RxNorm: 726754 Tablet(s) 1 Tablet(s) PO Q6 PRN TAKE NEEDED ONLY!!! 04/27/2018 No Stop Date Active digoxin 125 mcg tablet RxNorm: 362113 TAKE 1 TABLET BY MOUTH ONCE DAILY 04/23/2018 No Stop Date Active Lasix 40 mg tablet RxNorm: 878087 TAKE 1 TABLET BY MOUTH TWICE DAILY 04/19/2018 No Stop Date Active Vitamin D2 50,000 unit capsule RxNorm: 4093794 1 Capsule(s) PO QW 04/17/2018 06/15/2018 Active Tessalon Perles 100 mg capsule RxNorm: 042089 Capsule(s) Capsule(s) 2 Capsule(s) PO TID as needed 04/17/2018 05/02/2018 Inactive Xanax 0.5 mg tablet RxNorm: 030875 1 Tablet(s) BID as needed 04/09/2018 05/08/2018 Active Percocet 10 mg-325 mg tablet RxNorm: 5470618 1-2 Tablet(s) PO Q6 PRN 04/05/2018 04/19/2018 Inactive colestipol 1 gram tablet RxNorm: 6672620 TAKE ONE TABLET BY MOUTH TWICE DAILY 03/30/2018 No Stop Date Active nystatin 100,000 unit/mL oral suspension RxNorm: 974105 Unit(s) 5 Milliliter(s) PO QID swish and swallow 03/21/20182017 Inactive Tessalon Perles 100 mg capsule RxNorm: 549596 Capsule(s) Capsule(s) 2 Capsule(s) PO TID as needed 03/21/2018 04/16/2018 Inactive Xanax 0.5 mg tablet RxNorm: 539453 Tablet(s) BID as needed 04/09/2018 Inactive Slow Fe 47.5 mg iron tablet,extended release RxNorm: 1 Tablet(s) PO every other day 03/12/2018 04/10/2018 Inactive Percocet 10 mg-325 mg tablet RxNorm: 0392825 1-2 Tablet(s) PO Q6 PRN 03/12/2018 03/26/2018 Inactive Slow Fe 47.5 mg iron tablet,extended release RxNorm: 1 Tablet(s) PO 3 x week 02/28/2018 03/11/2018 Inactive promethazine 25 mg tablet RxNorm: 401766 Tablet(s) 1 Tablet(s) PO Q6 PRN TAKE NEEDED ONLY!!! 02/21/2018 04/26/2018 Inactive gabapentin 600 mg tablet RxNorm: 629294 Tablet(s) TAKE ONE & ONE-HALF TABLETS BY MOUTH THREE TIMES DAILY 02/20/20182018 Active Cymbalta 60 mg capsule,delayed release RxNorm: 385538 1 Capsule(s) PO daily take with 30mg tablet 02/20/2018 08/18/2018 Active Cymbalta 30 mg capsule,delayed release RxNorm: 430854 Capsule(s) TAKE ONE CAPSULE BY MOUTH ONCE DAILY - TAKE WITH THE 60 MG DOSE FOR A TOTAL OF 90 MG 02/20/2018 08/18/2018 Active Vitamin D2 50,000 unit capsule RxNorm: 0308397 1 Capsule(s) PO QW 02/20/2018 02/19/2018 Inactive Vitamin D2 50,000 unit capsule RxNorm: 6588228 1 Capsule(s) PO QW 02/20/2018 04/16/2018 Inactive mupirocin 2 % topical ointment RxNorm: 688889 APPLY TO SORE IN BELLY BUTTON TWICE DAILY 02/15/2018 No Stop Date Active Percocet 10 mg-325 mg tablet RxNorm: 7730340 1-2 Tablet(s) PO Q6 PRN 02/14/2018 02/28/2018 Inactive Jerry Marley U-300 Insulin 300 unit/mL (1.5 mL) subcutaneous pen RxNorm: 3668213 40 Unit(s) SQ BID per dr raines 02/07/2018 03/08/2018 Inactive nystatin 100,000 unit/mL oral suspension RxNorm: 527323 5 Milliliter(s) PO QID swish and swallow 02/02/2018 02/11/2018 Inactive mupirocin 2 % topical ointment RxNorm: 198369 1 Application TOP BID 01/30/2018 02/08/2018 Inactive Tessalon Perles 100 mg capsule RxNorm: 353778 Capsule(s) 2 Capsule(s) PO TID as needed 01/23/2018 03/20/2018 Inactive Xanax 0.5 mg tablet RxNorm: 254117 Tablet(s) TAKE ONE TABLET BY MOUTH THREE TIMES DAILY NEEDED 01/17/20182017 Inactive ropinirole 1 mg tablet RxNorm: 458985 1 Tablet(s) PO BID 201705/10/2018 Active digoxin 125 mcg tablet RxNorm: 865287 1 Tablet(s) PO daily 04/22/2018 Inactive Percocet 10 mg-325 mg tablet RxNorm: 0335698 1-2 Tablet(s) PO Q6 PRN 01/04/2018 01/18/2018 Inactive Percocet 10 mg-325 mg tablet RxNorm: 0523769 1-2 Tablet(s) PO Q6 PRN 01/02/2018 01/03/2018 Inactive promethazine 25 mg tablet RxNorm: 999125 Tablet(s) 1 Tablet(s) PO Q6 PRN TAKE NEEDED ONLY!!! 01/02/2018 02/20/2018 Inactive pantoprazole 40 mg tablet,delayed release RxNorm: 872550 TAKE 1 TABLET BY MOUTH ONCE DAILY 12/25/2017 No Stop Date Active mupirocin 2 % topical ointment RxNorm: 146593 1 Application TOP BID 12/22/2017 12/31/2017 Inactive fluconazole 150 mg tablet RxNorm: 850192 1 Tablet(s) PO every other day x 3 doses 12/14/2017 12/23/2017 Inactive Percocet 10 mg-325 mg tablet RxNorm: 4307675 1-2 Tablet(s) PO Q6 PRN 12/13/2017 12/27/2017 Inactive hyoscyamine 0.125 mg sublingual tablet RxNorm: 5563204 Tablet(s) 1 Tablet(s) SL TID as needed 12/13/2017 04/11/2018 Inactive nystatin 100,000 unit/gram topical powder RxNorm: 787836 APPLY POWDER TOPICALLY 4 TIMES DAILY 12/11/2017 No Stop Date Active Xanax 0.5 mg tablet RxNorm: 925178 Tablet(s) TAKE ONE TABLET BY MOUTH THREE TIMES DAILY NEEDED 12/06/20172017 Inactive nitrofurantoin 50 mg capsule RxNorm: 756049 1 Capsule(s) PO BID 12/01/2017 11/30/2017 Inactive take probiotic BID x 7 days nitrofurantoin 50 mg capsule RxNorm: 263188 1 Capsule(s) PO BID 12/01/2017 12/07/2017 Inactive take probiotic BID x 7 days mupirocin 2 % topical ointment RxNorm: 935625 1 Application TOP BID 11/27/2017 12/06/2017 Inactive Tessalon Perles 100 mg capsule RxNorm: 705935 Capsule(s) 2 Capsule(s) PO TID as needed 11/21/2017 01/22/2018 Inactive nystatin 100,000 unit/mL oral suspension RxNorm: 231067 5 Milliliter(s) PO QID swish and swallow 11/17/2017 11/26/2017 Inactive nystatin 100,000 unit/mL oral suspension RxNorm: 729501 5 Milliliter(s) PO QID swish and swallow 11/17/2017 11/16/2017 Inactive Toprol XL 100 mg tablet,extended release RxNorm: 612701 TAKE ONE TABLET BY MOUTH TWICE DAILY 11/15/2017 No Stop Date Active ropinirole 1 mg tablet RxNorm: 512716 Tablet(s) BID 11/14/2017 01/10/2018 Inactive Diflucan 150 mg tablet RxNorm: 954544 Tablet(s) every other day 1 Tablet(s) PO every other day 11/14/2017 11/16/2017 Inactive Percocet 10 mg-325 mg tablet RxNorm: 5498411 1-2 Tablet(s) PO Q6 PRN 11/09/2017 11/23/2017 Inactive Flonase Allergy Relief 50 mcg/actuation nasal spray, suspension RxNorm: 5508262 2 [place] NASAL daily 11/06/20172017 Inactive cyclobenzaprine 10 mg tablet RxNorm: 571288 Tablet(s) TABLET(S) 1 TABLET(S) PO NEEDED TAKE 1 TABLET BY MOUTH EVERY 8 HOURS NEEDED 2017 No Stop Date Active Cymbalta 30 mg capsule,delayed release RxNorm: 801467 TAKE ONE CAPSULE BY MOUTH ONCE DAILY - TAKE WITH THE 60 MG DOSE FOR A TOTAL OF 90 MG 02/19/2018 Inactive Lantus Solostar U-100 Insulin 100 unit/mL (3 mL) subcutaneous pen RxNorm: 509269 Unit(s) SQ 35 units QAM and 55 units QHS Unit(s) SQ 10/27/2017 02/07/2018 Inactive Wants insulin pens Percocet 10 mg-325 mg tablet RxNorm: 7555380 1-2 Tablet(s) PO Q6 PRN 10/27/2017 11/08/2017 Inactive promethazine 25 mg tablet RxNorm: 150117 Tablet(s) 1 Tablet(s) PO Q6 PRN TAKE NEEDED ONLY!!! 10/27/2017 01/01/2018 Inactive Xanax 0.5 mg tablet RxNorm: 703921 Tablet(s) TAKE ONE TABLET BY MOUTH THREE TIMES DAILY 10/20/2017 04/08/2018 Inactive Tessalon Perles 100 mg capsule RxNorm: 220027 Capsule(s) 2 Capsule(s) PO TID as needed 10/19/2017 11/20/2017 Inactive Diflucan 150 mg tablet RxNorm: 812871 1 Tablet(s) PO every other day 10/15/2017 11/13/2017 Inactive Percocet 10 mg-325 mg tablet RxNorm: 9230790 1-2 Tablet(s) PO Q6 PRN 10/06/2017 10/20/2017 Inactive pantoprazole 40 mg tablet,delayed release RxNorm: 235144 1 Tablet(s) PO BID 10/03/2017 03/31/2018 Inactive Cymbalta 60 mg capsule,delayed release RxNorm: 944099 TAKE ONE CAPSULE BY MOUTH ONCE DAILY 09/21/2017 02/19/2018 Inactive Diflucan 150 mg tablet RxNorm: 195489 1 Tablet(s) PO every other day 09/15/2017 09/19/2017 Inactive hyoscyamine 0.125 mg sublingual tablet RxNorm: 6260108 1 Tablet(s) SL TID as needed 09/08/2017 12/12/2017 Inactive Lantus Solostar U-100 Insulin 100 unit/mL (3 mL) subcutaneous pen RxNorm: 243624 Unit(s) SQ 35 units QAM and 55 units QHS Unit(s) SQ 09/06/2017 09/20/2017 Inactive Wants insulin pens Lasix 40 mg tablet RxNorm: 598248 TAKE ONE TABLET BY MOUTH TWICE DAILY 08/25/2017 04/18/2018 Inactive ropinirole 1 mg tablet RxNorm: 689335 TAKE ONE TABLET BY MOUTH AT BEDTIME 08/25/2017 11/13/2017 Inactive Lantus U-100 Insulin 100 unit/mL subcutaneous solution RxNorm: 957148 35 units QAM and 55 units QHS Unit(s) SQ 08/21/2017 09/05/2017 Inactive Tessalon Perles 100 mg capsule RxNorm: 519494 Capsule(s) 2 Capsule(s) PO TID as needed 08/18/2017 10/18/2017 Inactive Percocet 10 mg-325 mg tablet RxNorm: 0534874 1-2 Tablet(s) PO Q6 PRN 08/16/2017 08/30/2017 Inactive pantoprazole 40 mg tablet,delayed release RxNorm: 467090 TAKE ONE TABLET BY MOUTH TWICE DAILY 08/14/2017 08/13/2017 Inactive pantoprazole 40 mg tablet,delayed release RxNorm: 089129 1 Tablet(s) PO daily 08/14/2017 10/02/2017 Inactive promethazine 25 mg tablet RxNorm: 693083 Tablet(s) 1 Tablet(s) PO Q6 PRN TAKE NEEDED ONLY!!! 08/11/2017 10/26/2017 Inactive omeprazole 20 mg capsule,delayed release RxNorm: 062663 1 Capsule(s) PO daily TAKE 1 CAPSULE BY MOUTH ONCE DAILY 08/07/2017 10/26/2017 Inactive nystatin 100,000 unit/mL oral suspension RxNorm: 286776 5 Milliliter(s) PO QID swish and swallow 08/07/2017 08/16/2017 Inactive mupirocin 2 % topical ointment RxNorm: 941135 APPLY TO SORE IN BELLY BUTTON TWICE DAILY 08/07/2017 02/14/2018 Inactive omeprazole 20 mg capsule,delayed release RxNorm: 188699 1 Capsule(s) PO BID TAKE 1 CAPSULE BY MOUTH TWICE DAILY 08/03/2017 08/06/2017 Inactive Diflucan 150 mg tablet RxNorm: 808400 1 Tablet(s) PO daily 08/05/2017 Inactive hyoscyamine 0.125 mg sublingual tablet RxNorm: 8249111 1 Tablet(s) SL TID as needed 08/03/2017 09/01/2017 Inactive gentamicin 0.3 % eye drops RxNorm: 219182 2 Drop(s) ophthalmic (eye) TID 08/03/2017 08/09/2017 Inactive Levaquin 500 mg tablet RxNorm: 868880 1 Tablet(s) PO every other day x3 doses 07/27/2017 08/02/2017 Inactive gentamicin 0.3 % eye drops RxNorm: 867650 2 Drop(s) ophthalmic (eye) TID 07/27/2017 08/02/2017 Inactive dicyclomine 10 mg capsule RxNorm: 224257 1 Capsule(s) PO TID 08/02/2017 Inactive Levaquin 500 mg tablet RxNorm: 088282 1 Tablet(s) PO daily 12/201707/26/2017 Inactive Lantus U-100 Insulin 100 unit/mL subcutaneous solution RxNorm: 027192 INJECT 35 UNITS SUBCUTANEOUSLY IN THE MORNING AND 55 UNITS AT BEDTIME 07/24/2017 09/05/2017 Inactive Tessalon Perles 100 mg capsule RxNorm: 480300 2 Capsule(s) PO TID as needed 07/24/2017 08/17/2017 Inactive Percocet 10 mg-325 mg tablet RxNorm: 6257548 1-2 Tablet(s) PO Q6 PRN 07/21/2017 08/04/2017 Inactive promethazine 25 mg tablet RxNorm: 730133 1 Tablet(s) PO Q6 PRN 1 Tablet(s) PO Q6 PRN 07/19/2017 07/26/2017 Inactive Cartia XT 240 mg capsule,extended release RxNorm: 035249 1 Capsule(s) PO daily 06/27/2017 06/21/2018 Active potassium chloride ER 20 mEq tablet,extended release RxNorm: 001395 Tablet(s) TAKE ONE TABLET BY MOUTH ONCE DAILY 06/21/2017 No Stop Date Active Lantus U-100 Insulin 100 unit/mL subcutaneous solution RxNorm: 042068 35 units QAM and 55 units QHS Unit(s) SQ 06/21/2017 07/20/2017 Inactive Please provide 30 day supply Percocet 10 mg-325 mg tablet RxNorm: 6026788 1-2 Tablet(s) PO Q6 PRN 06/21/2017 07/05/2017 Inactive Cartia XT 180 mg capsule,extended release RxNorm: 629560 Capsule(s) BID 06/21/2017 06/26/2017 Inactive Xanax 0.5 mg tablet RxNorm: 597637 Tablet(s) TAKE ONE TABLET BY MOUTH THREE TIMES DAILY 06/21/2017 08/19/2017 Inactive digoxin 125 mcg tablet RxNorm: 492363 1 Tablet(s) PO daily 10/18/2017 Inactive gabapentin 600 mg tablet RxNorm: 949830 Tablet(s) TAKE ONE & ONE-HALF TABLETS BY MOUTH THREE TIMES DAILY 06/21/20172017 Inactive dicyclomine 10 mg capsule RxNorm: 177599 1 Capsule(s) PO TID 07/26/2017 Inactive Lantus U-100 Insulin 100 unit/mL subcutaneous solution RxNorm: 831898 35 units QAM and 55 units QHS Unit(s) SQ 06/13/2017 06/20/2017 Inactive Please provide 30 day supply potassium chloride ER 20 mEq tablet,extended release RxNorm: 602726 TAKE ONE TABLET BY MOUTH ONCE DAILY 06/02/2017 Inactive cyclobenzaprine 10 mg tablet RxNorm: 668549 Tablet(s) TABLET(S) 1 TABLET(S) PO NEEDED TAKE 1 TABLET BY MOUTH EVERY 8 HOURS NEEDED 201711/02/2017 Inactive Tessalon Perles 100 mg capsule RxNorm: 934960 2 Capsule(s) PO TID as needed 06/01/2017 07/23/2017 Inactive promethazine 25 mg tablet RxNorm: 162786 1 Tablet(s) PO Q6 PRN 1 Tablet(s) PO Q6 PRN 05/25/2017 06/01/2017 Inactive gabapentin 600 mg tablet RxNorm: 259556 TAKE ONE & ONE-HALF TABLETS BY MOUTH THREE TIMES DAILY 05/23/2017 06/20/2017 Inactive promethazine 25 mg tablet RxNorm: 138623 1 Tablet(s) PO Q6 PRN 1 Tablet(s) PO Q6 PRN 05/19/2017 05/24/2017 Inactive Flagyl 500 mg tablet RxNorm: 117396 1 Tablet(s) PO TID 201605/26/2017 Inactive Levaquin 500 mg tablet RxNorm: 497217 1 Tablet(s) PO daily 05/16/2017 Inactive Tessalon Perles 100 mg capsule RxNorm: 664515 2 Capsule(s) PO TID as needed 05/17/2017 05/31/2017 Inactive Flagyl 500 mg tablet RxNorm: 265410 1 Tablet(s) PO TID 201605/16/2017 Inactive hyoscyamine 0.125 mg sublingual tablet RxNorm: 1890131 1 Tablet(s) SL TID as needed 05/17/2017 06/12/2017 Inactive Levaquin 500 mg tablet RxNorm: 702426 1 Tablet(s) PO daily 05/23/2017 Inactive Cymbalta 60 mg capsule,delayed release RxNorm: 135872 1 Capsule(s) PO daily take with 30mg tablet 05/16/2017 08/13/2017 Inactive Bentyl 10 mg capsule RxNorm: 938828 1 Capsule(s) PO TID as needed 05/12/2017 06/10/2017 Inactive Levsin 0.125 mg tablet RxNorm: 3449640 1 Tablet(s) PO Q4 PRN 1-2 Tablet(s) PO Q4 PRN 05/11/2017 05/11/2017 Inactive nystatin 100,000 unit/gram topical powder RxNorm: 605500 Gram(s) APPLY POWDER TOPICALLY 4 TIMES DAILY 05/11/20172017 Inactive nystatin 100,000 unit/mL oral suspension RxNorm: 364868 4 Milliliter(s) PO QID swish and swallow 05/10/2017 05/19/2017 Inactive and Monistat over the counter colestipol 1 gram tablet RxNorm: 2369941 TAKE ONE TABLET BY MOUTH TWICE DAILY 05/08/2017 03/29/2018 Inactive Lantus 100 unit/mL subcutaneous solution RxNorm: 588676 30 units QAM and 50 units QHS Unit(s) SQ 04/28/2017 05/27/2017 Inactive Please provide 30 day supply Lantus Solostar 100 unit/mL (3 mL) subcutaneous insulin pen RxNorm: 151587 Unit( s) SQ BID 04/28/2017 06/13/2017 Inactive 30 units q am and 50units at night Lantus 100 unit/mL subcutaneous solution RxNorm: 979791 30 units QAM and 50 units QHS Unit(s) SQ 04/28/2017 04/27/2017 Inactive Please provide 30 day supply Levsin 0.125 mg tablet RxNorm: 9037801 1 Tablet(s) PO Q4 PRN 1-2 Tablet(s) PO Q4 PRN 04/25/2017 05/10/2017 Inactive promethazine 25 mg tablet RxNorm: 102541 1 Tablet(s) PO Q6 PRN 1 Tablet(s) PO Q6 PRN 04/25/2017 05/02/2017 Inactive Toprol XL 100 mg tablet,extended release RxNorm: 341671 TAKE ONE TABLET BY MOUTH TWICE DAILY 04/24/2017 11/14/2017 Inactive Flagyl 500 mg tablet RxNorm: 388291 1 Tablet(s) PO TID 201604/30/2017 Inactive Levaquin 500 mg tablet RxNorm: 708383 1 Tablet(s) PO daily 05/201604/27/2017 Inactive Voltaren 1 % topical gel RxNorm: 560391 4 Gram(s) TOP QID 04/1810/14/2017 Inactive mupirocin 2 % topical ointment RxNorm: 366365 1 Application TOP BID 04/18/2017 04/27/2017 Inactive apply to sore in belly button Lantus Solostar 100 unit/mL (3 mL) subcutaneous insulin pen RxNorm: 716560 Unit( s) SQ BID 04/18/2017 04/27/2017 Inactive 20 units q am and 50units at night levothyroxine 88 mcg tablet RxNorm: 765275 1 Tablet(s) PO daily TAKE ONE TABLET BY MOUTH ONCE DAILY 04/06/2017 04/17/2017 Inactive Xanax 0.5 mg tablet RxNorm: 053788 Tablet(s) TAKE ONE TABLET BY MOUTH THREE TIMES DAILY 04/04/2017 06/02/2017 Inactive Percocet 10 mg-325 mg tablet RxNorm: 5997616 1-2 Tablet(s) PO Q6 PRN 04/04/2017 04/18/2017 Inactive cyclobenzaprine 10 mg tablet RxNorm: 836755 TAKE ONE TABLET BY MOUTH EVERY 8 HOURS NEEDED 04/03/2017 06/01/2017 Inactive potassium chloride ER 20 mEq tablet,extended release RxNorm: 402657 1 Tablet(s) PO daily 03/28/2017 06/01/2017 Inactive nystatin 100,000 unit/gram topical cream RxNorm: 795136 1 Application TOP BID 03/27/2017 04/09/2017 Inactive Levsin 0.125 mg tablet RxNorm: 6842376 1 Tablet(s) PO Q4 PRN 1-2 Tablet(s) PO Q4 PRN 03/27/2017 04/24/2017 Inactive promethazine 25 mg tablet RxNorm: 136786 1 Tablet(s) PO Q6 PRN 03/23/2017 03/29/2017 Inactive nystatin 100,000 unit/gram topical powder RxNorm: 843768 APPLY POWDER TOPICALLY 4 TIMES DAILY 03/17/2017 05/10/2017 Inactive Percocet 10 mg-325 mg tablet RxNorm: 5782159 1-2 Tablet(s) PO Q6 PRN 03/09/2017 03/23/2017 Inactive Levsin 0.125 mg tablet RxNorm: 3777553 1-2 Tablet(s) PO Q4 PRN 03/06/2017 03/26/2017 Inactive promethazine 25 mg tablet RxNorm: 825552 1 Tablet(s) PO Q6 PRN 03/06/2017 03/13/2017 Inactive potassium chloride ER 20 mEq tablet,extended release RxNorm: 815180 1 Tablet(s) PO BID 02/23/2017 03/09/2017 Inactive Levsin/SL 0.125 mg sublingual tablet RxNorm: 7021401 1-2 Tablet(s) SL Q4 PRN 02/17/2017 03/26/2017 Inactive potassium chloride ER 20 mEq tablet,extended release RxNorm: 181799 1 Tablet(s) PO BID 02/17/2017 02/21/2017 Inactive magnesium oxide 400 mg tablet RxNorm: 991446 1 Tablet(s) PO daily 02/17/2017 02/21/2017 Inactive then twice weekly thereafter Levsin 0.125 mg tablet RxNorm: 1195550 1-2 Tablet(s) PO Q4 PRN 02/17/2017 02/16/2017 Inactive promethazine 25 mg tablet RxNorm: 810298 1 Tablet(s) PO Q6 PRN 02/10/2017 03/05/2017 Inactive Percocet 10 mg-325 mg tablet RxNorm: 2473452 1-2 Tablet(s) PO Q6 PRN 02/09/2017 02/23/2017 Inactive Cymbalta 60 mg capsule,delayed release RxNorm: 987874 1 Capsule(s) PO daily take with 30mg tablet 02/06/2017 05/06/2017 Inactive Cymbalta 30 mg capsule,delayed release RxNorm: 338160 1 Capsule(s) PO daily take with 60mg tablet 02/06/2017 02/19/2018 Inactive take with 60mg=90mg Vitamin D2 50,000 unit capsule RxNorm: 214409 1 Capsule(s) PO daily 01/17/2017 01/16/2017 Inactive daily x 6 mths Tresiba FlexTouch U-100 100 unit/mL (3 mL) subcutaneous insulin pen RxNorm: 9118451 40 Unit(s) SQ daily 01/17/20172016 Inactive Tresiba FlexTouch U-100 100 unit/mL (3 mL) subcutaneous insulin pen RxNorm: 5568258 40 Unit(s) SQ daily 01/17/20172016 Inactive Vitamin D2 50,000 unit capsule RxNorm: 547344 1 Capsule(s) PO daily 01/17/2017 10/26/2017 Inactive daily x 6 mths Cymbalta 30 mg capsule,delayed release RxNorm: 511953 1 Capsule(s) PO daily 01/16/2017 02/05/2017 Inactive take with 60mg=90mg Percocet 10 mg-325 mg tablet RxNorm: 3051881 1-2 Tablet(s) PO Q6 PRN 01/13/2017 01/27/2017 Inactive gabapentin 600 mg tablet RxNorm: 250814 TAKE ONE & ONE-HALF TABLETS BY MOUTH THREE TIMES DAILY 01/10/2017 05/09/2017 Inactive Percocet 10 mg-325 mg tablet RxNorm: 2166157 1-2 Tablet(s) PO Q6 PRN 12/21/2016 01/04/2017 Inactive Xanax 0.5 mg tablet RxNorm: 276051 Tablet(s) TAKE ONE TABLET BY MOUTH THREE TIMES DAILY 12/20/2016 02/15/2017 Inactive promethazine 25 mg tablet RxNorm: 369563 1 Tablet(s) PO Q6 PRN 12/16/2016 12/18/2016 Inactive prednisone 20 mg tablet RxNorm: 816007 2 Tablet(s) PO daily 12/14/2016 Inactive prednisone 20 mg tablet RxNorm: 347799 2 Tablet(s) PO daily 03/26/2017 Inactive Eliquis 5 mg tablet RxNorm: 8853231 1 Tablet(s) PO BID 201601/11/2017 Inactive doxycycline monohydrate 100 mg tablet RxNorm: 025311 1 Tablet(s) PO BID 12/13/2016 03/26/2017 Inactive give doxycyline hyclate cyclobenzaprine 10 mg tablet RxNorm: 852340 TAKE ONE TABLET BY MOUTH EVERY 8 HOURS NEEDED 12/09/2016 12/28/2016 Inactive Cymbalta 60 mg capsule,delayed release RxNorm: 631258 TAKE ONE CAPSULE BY MOUTH ONCE DAILY 11/30/2016 02/05/2017 Inactive promethazine 25 mg tablet RxNorm: 617658 2 Tablet(s) PO Q6 PRN 11/29/2016 12/16/2016 Inactive Percocet 10 mg-325 mg tablet RxNorm: 7337719 1-2 Tablet(s) PO Q6 PRN 11/24/2016 12/08/2016 Inactive mupirocin 2 % topical ointment RxNorm: 271278 1 Application TOP BID 11/11/2016 11/24/2016 Inactive Xanax 0.5 mg tablet RxNorm: 890513 Tablet(s) TAKE ONE TABLET BY MOUTH THREE TIMES DAILY 11/11/2016 12/19/2016 Inactive Belviq 10 mg tablet RxNorm: 9365940 1 Tablet(s) PO BID 201612/10/2016 Inactive Toprol XL 100 mg tablet,extended release RxNorm: 727243 TAKE ONE TABLET BY MOUTH TWICE DAILY 11/04/2016 04/02/2017 Inactive albuterol sulfate concentrate 2.5 mg/0.5 mL solution for nebulization RxNorm: 102100 USE ONE VIAL IN NEBULIZER EVERY 4 TO 6 HOURS NEEDED 11/03/2016 11/12/2016 Inactive Percocet 10 mg-325 mg tablet RxNorm: 7070551 1-2 Tablet(s) PO Q6 PRN 10/31/2016 11/23/2016 Inactive promethazine 25 mg tablet RxNorm: 891742 2 Tablet(s) PO Q6 PRN 10/28/2016 11/28/2016 Inactive nystatin 100,000 unit/mL oral suspension RxNorm: 603152 5 Milliliter(s) PO QID 10/28/2016 11/06/2016 Inactive Levemir FlexTouch 100 unit/mL (3 mL) subcutaneous insulin pen RxNorm: 051864 45 Unit(s) SQ BID 10/28/2016 01/16/2017 Inactive 45 q am and 40 q anita cyclobenzaprine 10 mg tablet RxNorm: 584742 TAKE ONE TABLET BY MOUTH EVERY 8 HOURS NEEDED 10/21/2016 11/09/2016 Inactive Lasix 40 mg tablet RxNorm: 865951 TAKE ONE TABLET BY MOUTH TWICE DAILY 10/18/2016 04/15/2017 Inactive Percocet 10 mg-325 mg tablet RxNorm: 5617789 1-2 Tablet(s) PO Q6 PRN 10/18/2016 10/30/2016 Inactive acyclovir 400 mg tablet RxNorm: 409988 2 Tablet(s) PO QID 10/1310/22/2016 Inactive Lasix 40 mg tablet RxNorm: 818938 TAKE ONE TABLET BY MOUTH TWICE DAILY 10/10/2016 10/17/2016 Inactive ropinirole 1 mg tablet RxNorm: 626178 TAKE ONE TABLET BY MOUTH AT BEDTIME 10/10/2016 04/07/2017 Inactive nystatin 100,000 unit/mL oral suspension RxNorm: 327167 5 Milliliter(s) PO QID x 10 days 09/30/2016 10/09/2016 Inactive nystatin 100,000 unit/mL oral suspension RxNorm: 108163 5 Milliliter(s) PO QID x 10 days 09/30/2016 10/09/2016 Inactive Swish et swallow Flonase Allergy Relief 50 mcg/actuation nasal spray, suspension RxNorm: 8592901 2 [place] NASAL daily 09/23/20162016 Inactive Percocet 10 mg-325 mg tablet RxNorm: 4775317 1-2 Tablet(s) PO Q6 PRN 09/23/2016 10/17/2016 Inactive doxycycline monohydrate 100 mg tablet RxNorm: 455415 1 Tablet(s) PO BID 09/23/2016 10/02/2016 Inactive give doxycyline hyclate Levemir FlexTouch 100 unit/mL (3 mL) subcutaneous insulin pen RxNorm: 068491 40 Unit(s) SQ BID 09/15/2016 10/27/2016 Inactive nystatin 100,000 unit/gram topical powder RxNorm: 888368 1 Application TOP QID 09/13/2016 09/22/2016 Inactive Voltaren 1 % topical gel RxNorm: 876096 4 Gram(s) TOP QID 09/1303/11/2017 Inactive Anusol-HC 25 mg rectal suppository RxNorm: 6317155 1 Suppository RTL HS 09/13/2016 09/26/2016 Inactive hydrocodone 10 mg-acetaminophen 325 mg tablet RxNorm: 411216 1-2 Tablet(s) PO Q6 as needed 09/13/2016 09/22/2016 Inactive Linzess 145 mcg capsule RxNorm: 2331358 1 Capsule(s) PO daily 09/01/2016 10/26/2017 Inactive Linzess 145 mcg capsule RxNorm: 0991785 1 Capsule(s) PO daily 09/01/2016 08/31/2016 Inactive Zofran 4 mg tablet RxNorm: 465982 TAKE ONE TABLET BY MOUTH EVERY 4 TO 6 HOURS NEEDED 08/29/2016 08/02/2017 Inactive Voltaren 1 % topical gel RxNorm: 810527 4 Gram(s) TOP QID 08/2309/12/2016 Inactive levothyroxine 88 mcg tablet RxNorm: 228875 TAKE ONE TABLET BY MOUTH ONCE DAILY 08/19/2016 12/16/2016 Inactive hydrocodone 10 mg-acetaminophen 325 mg tablet RxNorm: 444924 1 Tablet(s) PO Q6 as needed 08/17/2016 09/12/2016 Inactive nystatin 100,000 unit/gram topical powder RxNorm: 441251 1 Application TOP QID 08/16/2016 08/25/2016 Inactive Cymbalta 60 mg capsule,delayed release RxNorm: 898598 TAKE ONE CAPSULE BY MOUTH ONCE DAILY 08/10/2016 11/29/2016 Inactive Voltaren 1 % topical gel RxNorm: 859265 4 Gram(s) TOP QID 08/1008/22/2016 Inactive Voltaren 1 % topical gel RxNorm: 383123 4 Gram(s) TOP QID 08/1008/09/2016 Inactive promethazine 25 mg tablet RxNorm: 289849 TAKE ONE TABLET BY MOUTH EVERY 8 HOURS NEEDED FOR NAUSEA 07/29/20162017 Inactive nystatin 100,000 unit/gram topical powder RxNorm: 799964 1 Application TOP QID 07/26/2016 08/04/2016 Inactive Levemir FlexTouch U-100 Insulin 100 unit/mL (3 mL) subcutaneous pen RxNorm: 748291 35 Unit(s) SQ BID 07/26/201609/2016 Inactive 35 q am and 30 q pm cyclobenzaprine 10 mg tablet RxNorm: 701617 TAKE ONE TABLET BY MOUTH EVERY 8 HOURS NEEDED 07/14/2016 08/22/2016 Inactive hydrocodone 10 mg-acetaminophen 325 mg tablet RxNorm: 862793 1 Tablet(s) PO Q6 as needed 07/11/2016 08/16/2016 Inactive nystatin 100,000 unit/mL oral suspension RxNorm: 085326 5 Milliliter(s) PO QID x 10 days 07/05/2016 07/04/2016 Inactive nystatin 100,000 unit/mL oral suspension RxNorm: 657395 5 Milliliter(s) PO QID x 10 days 07/05/2016 07/04/2016 Inactive nystatin 100,000 unit/mL oral suspension RxNorm: 791901 5 Milliliter(s) PO QID x 10 days 07/05/2016 07/14/2016 Inactive Swish et swallow doxycycline monohydrate 100 mg tablet RxNorm: 798721 1 Tablet(s) PO BID 06/24/2016 07/03/2016 Inactive give doxycyline hyclate promethazine 25 mg tablet RxNorm: 068888 TAKE ONE TABLET BY MOUTH EVERY 8 HOURS NEEDED FOR NAUSEA 06/01/20162016 Inactive pantoprazole 40 mg tablet,delayed release RxNorm: 542660 1 Tablet(s) PO BID 05/25/2016 08/02/2017 Inactive Zofran 4 mg tablet RxNorm: 627842 1 Tablet(s) PO Q12 PRN TAKE 1 TABLET BY MOUTH EVERY 4 TO 6 HOURS NEEDED 05/24/2016 Inactive hydrocodone 10 mg-acetaminophen 325 mg tablet RxNorm: 988997 1 Tablet(s) PO Q6 as needed 05/24/2016 07/10/2016 Inactive Levemir FlexTouch 100 unit/mL (3 mL) subcutaneous insulin pen RxNorm: 681684 25 Unit(s) SQ BID 05/24/2016 06/22/2016 Inactive Xanax 0.5 mg tablet RxNorm: 608116 Tablet(s) TAKE ONE TABLET BY MOUTH THREE TIMES DAILY 05/11/2016 07/09/2016 Inactive BD Insulin Pen Needle UF Short 31 gauge x 5/16" RxNorm: [facility] [place] 05/06/2016 05/05/2016 Inactive BD Insulin Pen Needle UF Short 31 gauge x 5/16" RxNorm: [facility] [place] 05/06/2016 06/04/2016 Inactive colestipol 1 gram tablet RxNorm: 1615402 Tablet(s) TAKE 1 TABLET BY MOUTH TWICE DAILY 04/22/2016 04/16/2017 Inactive Levemir FlexTouch 100 unit/mL (3 mL) subcutaneous insulin pen RxNorm: 101572 20 Unit(s) SQ BID 04/19/2016 05/18/2016 Inactive 25 UNITS Q AM AND 20 UNITS Q HS Cartia XT 180 mg capsule,extended release RxNorm: 210284 Capsule(s) BID 04/11/2016 04/05/2017 Inactive hydrocodone 10 mg-acetaminophen 325 mg tablet RxNorm: 695072 1 Tablet(s) PO Q6 as needed 04/11/2016 05/23/2016 Inactive Levemir FlexTouch 100 unit/mL (3 mL) subcutaneous insulin pen RxNorm: 652909 20 Unit(s) SQ BID 04/11/2016 04/18/2016 Inactive 20 UNITS Q AM AND 15 UNITS Q HS X 1 WEEK THEN 20 UNITS BID levothyroxine 88 mcg tablet RxNorm: 176085 1 Tablet(s) PO daily 03/21/2016 07/18/2016 Inactive Cymbalta 60 mg capsule,delayed release RxNorm: 166967 1 Capsule(s) PO daily 03/21/2016 07/18/2016 Inactive diltiazem ER (XR/XT) 240 mg capsule,extended release, controlled RxNorm: 150170 1 Capsule(s) PO BID 03/18/20162017 Inactive doxycycline hyclate 100 mg tablet RxNorm: 936680 1 Tablet(s) PO BID 03/11/2016 03/17/2016 Inactive Levemir FlexTouch 100 unit/mL (3 mL) subcutaneous insulin pen RxNorm: 043959 10 Unit(s) SQ BID 03/11/2016 04/09/2016 Inactive Lasix 40 mg tablet RxNorm: 256263 1 Tablet(s) PO BID 201509/06/2016 Inactive gabapentin 600 mg tablet RxNorm: 481966 Tablet(s) 1.5 TABLET(S) PO TID 03/04/2016 08/30/2016 Inactive Toujeo SoloStar 300 unit/mL (1.5 mL) subcutaneous insulin pen RxNorm: 2745054 10 Unit(s) SQ QHS 02/26/2016 03/26/2016 Inactive polymyxin B sulfate 10,000 unit-trimethoprim 1 mg/mL eye drops RxNorm: 352358 2 Drop(s) OPH TID 02/26/2016 03/03/2016 Inactive Lasix 20 mg tablet RxNorm: 714307 2 Tablet(s) PO BID TAKE 2 TABLETS BY MOUTH EVERY MORNING AND 2 TABLET BY MOUTH AT 3 PM 02/26/2016 03/10/2016 Inactive cyclobenzaprine 10 mg tablet RxNorm: 374072 Tablet(s) TABLET(S) TABLET(S) 1 TABLET (S) PO NEEDED TAKE 1 TABLET BY MOUTH EVERY 8 HOURS NEEDED 02/26/2016 07/13/2016 Inactive early fill- pt lost med Levemir FlexTouch 100 unit/mL (3 mL) subcutaneous insulin pen RxNorm: 872828 16 Unit(s) SQ QHS 02/18/2016 02/17/2016 Inactive Levemir FlexTouch 100 unit/mL (3 mL) subcutaneous insulin pen RxNorm: 000092 16 Unit(s) SQ QHS 02/18/2016 02/25/2016 Inactive Levemir 100 unit/mL subcutaneous solution RxNorm: 125060 16 Unit(s) SQ QHS 02/15/2016 02/17/2016 Inactive disp needles as well Effexor XR 37.5 mg capsule,extended release RxNorm: 845962 1 Capsule(s) QPM CAPSULE(S) PO TAKE 2 CAPSULES BY MOUTH EVERY MORNING AND 1 CAPSULE BY MOUTH EVERY NIGHT AT BEDTIME 02/15/20162015 Inactive clotrimazole 100 mg vaginal tablet RxNorm: 972085 1 Tablet(s) VAG QHS 02/05/2016 02/11/2016 Inactive clotrimazole 100 mg vaginal tablet RxNorm: 367667 1 Tablet(s) VAG QHS 02/05/2016 02/04/2016 Inactive hydrocodone 10 mg-acetaminophen 325 mg tablet RxNorm: 911420 1 Tablet(s) PO Q6 as needed 02/05/2016 04/10/2016 Inactive flecainide 100 mg tablet RxNorm: 213174 1 Tablet(s) PO BID No Stop Date Active potassium chloride ER 10 mEq tablet,extended release RxNorm: 390996 1 Tablet(s) PO daily 1 TABLET(S) PO QDAY PRN TAKE WITH LASIX 02/02/2016 01/26/2017 Inactive Brovana 15 mcg/2 mL solution for nebulization RxNorm: 633040 2 Milliliter(s) INH BID PRN 02/02/2016 03/20/2016 Inactive promethazine 25 mg tablet RxNorm: 000095 1 Tablet(s) PO Q8 as needed nausea 01/27/2016 03/20/2016 Inactive promethazine 25 mg tablet RxNorm: 194605 1 Tablet(s) PO Q6 PRN 01/27/2016 02/03/2016 Inactive nystatin 100,000 unit/mL oral suspension RxNorm: 716200 5 Unit(s) PO QID 01/12/2016 01/21/2016 Inactive promethazine 25 mg tablet RxNorm: 359826 1 Tablet(s) PO Q6 PRN 12/30/2015 01/06/2016 Inactive hydrocodone 7.5 mg-acetaminophen 325 mg tablet RxNorm: 770132 1 Tablet(s) PO q 6 hours prn for pain 12/10/2015 01/06/2016 Inactive Xanax 0.5 mg tablet RxNorm: 821134 TAKE ONE TABLET BY MOUTH THREE TIMES DAILY 12/02/2015 12/31/2015 Inactive Xanax 0.5 mg tablet RxNorm: 462729 Tablet(s) TAKE 1 TABLET BY MOUTH THREE TIMES DAILY 12/02/2015 11/30/2015 Inactive Anusol-HC 25 mg rectal suppository RxNorm: 8427452 1 Suppository RTL HS 11/27/2015 09/12/2016 Inactive ropinirole 1 mg tablet RxNorm: 843856 1 Tablet(s) PO QHS 201505/24/2016 Inactive nystatin 100,000 unit/mL oral suspension RxNorm: 208537 5 Unit(s) PO QID 11/20/2015 11/29/2015 Inactive albuterol sulfate concentrate 2.5 mg/0.5 mL solution for nebulization RxNorm: 118575 3 Milliliter(s) INH Q4-6H as needed 11/10/2015 11/02/2016 Inactive doxycycline monohydrate 100 mg tablet RxNorm: 736120 1 Tablet(s) PO BID 11/10/2015 11/19/2015 Inactive give doxycyline hyclate promethazine 25 mg tablet RxNorm: 048255 1 Tablet(s) PO Q6 PRN 11/05/2015 11/12/2015 Inactive Bactroban 2 % topical ointment RxNorm: 322637 1 APPLICATION TOP BID 10/27/2015 10/26/2017 Inactive Belviq 10 mg tablet RxNorm: 6736910 1 Tablet(s) PO BID 201511/25/2015 Inactive hydrocodone 7.5 mg-acetaminophen 325 mg tablet RxNorm: 939336 1 Tablet(s) PO q 6 hours prn for pain 10/20/2015 11/18/2015 Inactive Toprol XL 100 mg tablet,extended release RxNorm: 020542 Tablet(s) TAKE 1 TABLET BY MOUTH TWICE DAILY 10/16/20152016 Inactive Diflucan 150 mg tablet RxNorm: 725047 1 Tablet(s) PO every other day 10/14/2015 10/23/2015 Inactive Xanax 0.5 mg tablet RxNorm: 998687 Tablet(s) TAKE 1 TABLET BY MOUTH THREE TIMES DAILY 10/14/2015 05/10/2016 Inactive Toprol XL 100 mg tablet,extended release RxNorm: 123458 Tablet(s) TAKE 1 TABLET BY MOUTH TWICE DAILY 10/13/20152015 Inactive cyclobenzaprine 10 mg tablet RxNorm: 561475 Tablet(s) TABLET(S) TABLET(S) 1 TABLET (S) PO NEEDED TAKE 1 TABLET BY MOUTH EVERY 8 HOURS NEEDED 10/02/2015 10/14/2015 Inactive Zofran 4 mg tablet RxNorm: 720740 Tablet(s) 1 TABLET(S) PRN TAKE 1 TABLET BY MOUTH EVERY 4 TO 6 HOURS NEEDED 09/29/2015 12/27/2015 Inactive Synthroid 88 mcg tablet RxNorm: 229590 1 Tablet(s) PO daily 1 TABLET(S) PO DAILY 09/29/2015 10/28/2015 Inactive Patient requests 90 days supply promethazine 25 mg tablet RxNorm: 535231 1 Tablet(s) PO Q6 PRN 09/29/2015 11/04/2015 Inactive Lasix 20 mg tablet RxNorm: 676254 2 Tablet(s) PO BID 201501/18/2016 Inactive promethazine 25 mg tablet RxNorm: 930803 1 Tablet(s) PO Q6 PRN 09/22/2015 09/28/2015 Inactive hydrocodone 7.5 mg-acetaminophen 325 mg tablet RxNorm: 567180 1 Tablet(s) PO q 6 hours prn for pain 09/17/2015 10/16/2015 Inactive WelChol 625 mg tablet RxNorm: 525078 3 Tablet(s) PO BID 201503/26/2017 Inactive promethazine 25 mg tablet RxNorm: 256738 1 Tablet(s) PO Q8 as needed 09/07/2015 10/26/2017 Inactive Levemir 100 unit/mL subcutaneous solution RxNorm: 275893 16 Unit(s) SQ QHS 09/01/2015 02/14/2016 Inactive pantoprazole 40 mg tablet,delayed release RxNorm: 729162 1 Tablet(s) PO daily 09/01/2015 05/24/2016 Inactive Effexor XR 37.5 mg capsule,extended release RxNorm: 630961 Capsule(s) CAPSULE(S) PO TAKE 2 CAPSULES BY MOUTH EVERY MORNING AND 1 CAPSULE BY MOUTH EVERY NIGHT AT BEDTIME 08/27/2015 02/14/2016 Inactive promethazine 25 mg tablet RxNorm: 774229 1 Tablet(s) PO Q8 as needed 08/13/2015 09/06/2015 Inactive gabapentin 600 mg tablet RxNorm: 395936 Tablet(s) 1.5 TABLET(S) PO TID 08/13/2015 02/08/2016 Inactive hydrocodone 7.5 mg-acetaminophen 325 mg tablet RxNorm: 929967 1 Tablet(s) PO q 6 hours prn for pain 08/10/2015 09/08/2015 Inactive Zofran 4 mg tablet RxNorm: 324348 Tablet(s) 1 TABLET(S) PRN TAKE 1 TABLET BY MOUTH EVERY 4 TO 6 HOURS NEEDED 08/04/2015 08/03/2015 Inactive Zofran 4 mg tablet RxNorm: 847358 Tablet(s) 1 TABLET(S) PRN TAKE 1 TABLET BY MOUTH EVERY 4 TO 6 HOURS NEEDED 08/04/2015 09/28/2015 Inactive doxycycline monohydrate 100 mg tablet RxNorm: 999135 1 Tablet(s) PO BID 08/04/2015 08/10/2015 Inactive give doxycyline hyclate Diflucan 150 mg tablet RxNorm: 149971 1 Tablet(s) PO every other day 07/31/2015 08/09/2015 Inactive nystatin 100,000 unit/mL oral suspension RxNorm: 058519 5 Milliliter(s) PO QID 07/31/2015 07/30/2015 Inactive Diflucan 150 mg tablet RxNorm: 499472 1 Tablet(s) PO every other day 07/31/2015 07/30/2015 Inactive nystatin 100,000 unit/mL oral suspension RxNorm: 217374 5 Milliliter(s) PO QID 07/31/2015 08/09/2015 Inactive Ceftin 500 mg tablet RxNorm: 748304 1 Tablet(s) PO BID 201507/23/2015 Inactive Ceftin 500 mg tablet RxNorm: 532515 1 Tablet(s) PO BID Pre-medicate with benadryl 50 mg, pepcid 20 mg, and nathanael before each dose 07/24/2015 07/30/2015 Inactive cyclobenzaprine 10 mg tablet RxNorm: 665858 TABLET(S) TABLET(S) 1 TABLET(S) PO NEEDED TAKE 1 TABLET BY MOUTH EVERY 8 HOURS NEEDED 201502/25/2016 Inactive early fill- pt lost med Synthroid 88 mcg tablet RxNorm: 133981 1 TABLET(S) PO DAILY 07/201509/28/2015 Inactive Patient requests 90 days supply cyclobenzaprine 10 mg tablet RxNorm: 628513 Tablet(s) TABLET(S) TABLET(S) 1 TABLET (S) PO NEEDED TAKE 1 TABLET BY MOUTH EVERY 8 HOURS NEEDED 07/23/2015 10/01/2015 Inactive early fill- pt lost med Promethazine VC 6.25 mg-5 mg/5 mL syrup RxNorm: 5689519 1-2 Teaspoon(s) PO Q6 PRN as needed 07/22/2015 03/20/2016 Inactive Diflucan 150 mg tablet RxNorm: 154807 1 Tablet(s) PO daily 06/201507/22/2015 Inactive Lasix 20 mg tablet RxNorm: 171608 Tablet(s) TAKE 2 TABLETS BY MOUTH EVERY MORNING AND 2 TABLET BY MOUTH AT 3PM 07/16/2015 09/21/2015 Inactive Toprol XL 100 mg tablet,extended release RxNorm: 864070 Tablet(s) TAKE 1 TABLET BY MOUTH TWICE DAILY 07/16/20152015 Inactive Cartia XT 180 mg capsule,extended release RxNorm: 774253 Capsule(s) 1 CAPSULE(S) PO DAILY TAKE 1 CAPSULE BY MOUTH AT BEDTIME ..TAKE THIS IN ADDITION TO 240 MG IN THE MORNING 07/14/2015 04/10/2016 Inactive diltiazem ER (XR/XT) 240 mg capsule,extended release, controlled RxNorm: 227125 Capsule(s) TAKE 1 CAPSULE BY MOUTH DAILY 07/14/2015 03/17/2016 Inactive gabapentin 600 mg tablet RxNorm: 145284 Tablet(s) 1.5 TABLET(S) PO TID 07/06/2015 08/12/2015 Inactive Phenergan 25 mg tablet RxNorm: 609063 1 Tablet(s) PO Q8 as needed nausea 06/29/2015 01/25/2016 Inactive doxycycline monohydrate 100 mg tablet RxNorm: 379972 1 Tablet(s) PO BID 06/29/2015 06/28/2015 Inactive doxycycline monohydrate 100 mg tablet RxNorm: 498565 1 Tablet(s) PO BID 06/29/2015 07/08/2015 Inactive give doxycyline hyclate doxycycline monohydrate 100 mg tablet RxNorm: 237825 1 Tablet(s) PO BID 06/29/2015 06/28/2015 Inactive Lasix 20 mg tablet RxNorm: 612332 Tablet(s) TAKE 2 TABLETS BY MOUTH EVERY MORNING AND 2 TABLET BY MOUTH AT 3PM 06/29/2015 07/15/2015 Inactive Lasix 20 mg tablet RxNorm: 854130 Tablet(s) TAKE 2 TABLETS BY MOUTH EVERY MORNING AND 1 TABLET BY MOUTH AT 3PM 06/26/2015 06/28/2015 Inactive Xanax 0.5 mg tablet RxNorm: 483005 Tablet(s) TAKE 1 TABLET BY MOUTH THREE TIMES DAILY 06/26/2015 07/25/2015 Inactive Kenalog 40 mg/mL suspension for injection RxNorm: 3288501 Milliliter(s) Inj 06/26/2015 06/26/2015 Inactive hydrocodone 7.5 mg-acetaminophen 325 mg tablet RxNorm: 357946 1 Tablet(s) PO q 6 hours prn for pain 06/26/2015 07/25/2015 Inactive Dexilant 60 mg capsule, delayed release RxNorm: 611365 1 Capsule(s) PO daily 06/26/2015 08/24/2015 Inactive colestipol 1 gram tablet RxNorm: 8669507 1 TABLET(S) PO BID TAKE 1 TABLET BY MOUTH TWICE DAILY 06/16/2015 03/11/2016 Inactive hydrocodone 7.5 mg-acetaminophen 325 mg tablet RxNorm: 687545 1 Tablet(s) PO q 6 hours prn for pain 06/11/2015 06/25/2015 Inactive cyclobenzaprine 10 mg tablet RxNorm: 829791 TABLET(S) TABLET(S) 1 TABLET(S) PO NEEDED TAKE 1 TABLET BY MOUTH EVERY 8 HOURS NEEDED 201507/22/2015 Inactive early fill- pt lost med Zofran 4 mg tablet RxNorm: 271807 1 TABLET(S) PRN TAKE 1 TABLET BY MOUTH EVERY 4 TO 6 HOURS NEEDED 05/25/20152015 Inactive Zofran 4 mg tablet RxNorm: 017928 1 Tablet(s) PRN TAKE 1 TABLET BY MOUTH EVERY 4 TO 6 HOURS NEEDED 05/19/20152015 Inactive gabapentin 600 mg tablet RxNorm: 093564 1.5 TABLET(S) PO TID 07/05/2015 Inactive Lasix 20 mg tablet RxNorm: 518889 TAKE 2 TABLETS BY MOUTH EVERY MORNING AND 1 TABLET BY MOUTH AT 3PM 05/07/20152015 Inactive Effexor XR 37.5 mg capsule,extended release RxNorm: 565897 Capsule(s) CAPSULE(S) PO TAKE 2 CAPSULES BY MOUTH EVERY MORNING AND 1 CAPSULE BY MOUTH EVERY NIGHT AT BEDTIME 04/15/2015 08/26/2015 Inactive Diflucan 150 mg tablet RxNorm: 527482 1 Tablet(s) PO daily 04/18/2015 Inactive Victoza 3-Babak 0.6 mg/0.1 mL (18 mg/3 mL) subcutaneous pen injector RxNorm: 971585 1.8 Milligram(s) SQ daily 04/14/201508/10 Inactive Levaquin 500 mg tablet RxNorm: 022929 1 Tablet(s) PO daily 04/20/2015 Inactive potassium chloride ER 10 mEq tablet,extended release RxNorm: 157314 1 TABLET(S) PO QDAY PRN TAKE WITH LASIX 04/13/201504/2016 Inactive Effexor XR 37.5 mg capsule,extended release RxNorm: 181472 CAPSULE(S) PO TAKE 2 CAPSULES BY MOUTH EVERY MORNING AND 1 CAPSULE BY MOUTH EVERY NIGHT AT BEDTIME 04/10/2015 04/14/2015 Inactive pantoprazole 40 mg tablet,delayed release RxNorm: 684265 1 Tablet(s) PO daily 03/31/2015 08/31/2015 Inactive Dexilant 60 mg capsule, delayed release RxNorm: 475012 1 Capsule(s) PO daily 03/31/2015 03/31/2015 Inactive pantoprazole 40 mg tablet,delayed release RxNorm: 238922 1 Tablet(s) PO daily 03/31/2015 03/30/2015 Inactive Dexilant 60 mg capsule, delayed release RxNorm: 969693 1 Capsule(s) PO daily 03/31/2015 05/29/2015 Inactive Dexilant 60 mg capsule, delayed release RxNorm: 668461 1 Capsule(s) PO daily 03/30/2015 03/30/2015 Inactive hydrocodone 7.5 mg-acetaminophen 325 mg tablet RxNorm: 282992 1 Tablet(s) PO q 6 hours prn for pain 03/30/2015 04/28/2015 Inactive cyclobenzaprine 10 mg tablet RxNorm: 245893 TABLET(S) TABLET(S) 1 TABLET(S) PO NEEDED TAKE 1 TABLET BY MOUTH EVERY 8 HOURS NEEDED 201405/31/2015 Inactive early fill- pt lost med Xanax 0.5 mg tablet RxNorm: 899389 Tablet(s) TAKE 1 TABLET BY MOUTH THREE TIMES DAILY 03/25/2015 04/23/2015 Inactive Lasix 20 mg tablet RxNorm: 617229 TAKE 2 TABLETS BY MOUTH EVERY MORNING AND 1 TABLET BY MOUTH AT 3PM 03/23/20152014 Inactive Levemir Flexpen 100 unit/mL (3 mL) solution subcutaneous insulin pen RxNorm: 823079 15 Unit(s) SQ BID 03/20/20152015 Inactive give quanity sufficient for 1 month- Dexilant 60 mg capsule, delayed release RxNorm: 133056 1 Capsule(s) PO daily 03/19/2015 03/29/2015 Inactive Dexilant 60 mg capsule, delayed release RxNorm: 040801 1 Capsule(s) PO daily 03/19/2015 03/18/2015 Inactive Diflucan 150 mg tablet RxNorm: 010402 1 Tablet(s) PO every other day x7 doses 03/19/2015 03/21/2015 Inactive hydrocodone 7.5 mg-acetaminophen 325 mg tablet RxNorm: 116673 1 Tablet(s) PO q 6 hours prn for pain 02/27/2015 03/28/2015 Inactive Lasix 20 mg tablet RxNorm: 358959 TAKE 2 TABLETS BY MOUTH EVERY MORNING AND 1 TABLET BY MOUTH AT 3PM 02/27/20152014 Inactive omeprazole 20 mg capsule,delayed release RxNorm: 124142 1 CAPSULE(S) PO DAILY TAKE 1 CAPSULE BY MOUTH TWICE DAILY 02/26/2015 10/26/2017 Inactive Zofran 4 mg tablet RxNorm: 538545 1 Tablet(s) PRN TAKE 1 TABLET BY MOUTH EVERY 4 TO 6 HOURS NEEDED 02/24/20152014 Inactive fluconazole 150 mg tablet RxNorm: 493725 1 Tablet(s) PO every other day x 5 doses 02/19/2015 02/28/2015 Inactive cyclobenzaprine 10 mg tablet RxNorm: 175612 TABLET(S) TABLET(S) 1 TABLET(S) PO NEEDED TAKE 1 TABLET BY MOUTH EVERY 8 HOURS NEEDED 201403/29/2015 Inactive early fill- pt lost med hydrocodone 7.5 mg-acetaminophen 325 mg tablet RxNorm: 786625 1 Tablet(s) PO q 6 hours prn for pain 01/29/2015 02/26/2015 Inactive Xanax 0.5 mg tablet RxNorm: 872173 Tablet(s) TAKE 1 TABLET BY MOUTH THREE TIMES DAILY 01/29/2015 02/27/2015 Inactive Bactroban 2 % topical ointment RxNorm: 730631 1 APPLICATION TOP BID 01/26/2015 10/26/2015 Inactive Bactroban 2 % topical ointment RxNorm: 845418 1 Application TOP BID 01/15/2015 01/25/2015 Inactive doxycycline hyclate 100 mg tablet RxNorm: 641531 1 Tablet(s) PO BID 01/15/2015 01/21/2015 Inactive nystatin 100,000 unit/mL oral suspension RxNorm: 549197 5 Milliliter(s) PO QID 01/15/2015 01/24/2015 Inactive Cartia XT 180 mg capsule,extended release RxNorm: 230832 1 CAPSULE(S) PO DAILY TAKE 1 CAPSULE BY MOUTH AT BEDTIME ..TAKE THIS IN ADDITION TO 240 MG IN THE MORNING 01/13/2015 07/13/2015 Inactive Lasix 20 mg tablet RxNorm: 437298 TAKE 2 TABLETS BY MOUTH EVERY MORNING AND 1 TABLET BY MOUTH AT 3PM 01/08/20152014 Inactive fluconazole 150 mg tablet RxNorm: 469928 1 Tablet(s) PO daily 01/01/2015 01/05/2015 Inactive hydrocodone 7.5 mg-acetaminophen 325 mg tablet RxNorm: 391039 1 Tablet(s) PO q 6 hours prn for pain 01/01/2015 01/28/2015 Inactive colestipol 1 gram tablet RxNorm: 6355489 1 TABLET(S) PO BID TAKE 1 TABLET BY MOUTH TWICE DAILY 12/18/2014 06/15/2015 Inactive colestipol 1 gram tablet RxNorm: 0200376 1 TABLET(S) PO BID TAKE 1 TABLET BY MOUTH TWICE DAILY 12/18/2014 09/13/2015 Inactive Lasix 20 mg tablet RxNorm: 611382 TAKE 2 TABLETS BY MOUTH EVERY MORNING AND 2 TABLETS AND AT 3PM 12/11/2014 12/25/2014 Inactive cyclobenzaprine 10 mg tablet RxNorm: 392796 TABLET(S) 1 TABLET(S) PO NEEDED TAKE 1 TABLET BY MOUTH EVERY 8 HOURS NEEDED 12/11/2014 05/31/2017 Inactive Lasix 20 mg tablet RxNorm: 879262 Tablet(s) TABLET(S) PO TAKE 2 TABLETS BY MOUTH EVERY MORNING AND 1 TABLET BY MOUTH AT 3 PM 12/10/2014 12/10/2014 Inactive fill early- pt lost them cyclobenzaprine 10 mg tablet RxNorm: 579594 Tablet(s) TABLET(S) 1 TABLET(S) PO NEEDED TAKE 1 TABLET BY MOUTH EVERY 8 HOURS NEEDED 201402/15/2015 Inactive early fill- pt lost med cyclobenzaprine 10 mg tablet RxNorm: 787782 TABLET(S) 1 TABLET(S) PO NEEDED TAKE 1 TABLET BY MOUTH EVERY 8 HOURS NEEDED 12/02/2014 12/09/2014 Inactive hydrocodone 7.5 mg-acetaminophen 325 mg tablet RxNorm: 225554 1 Tablet(s) PO q 6 hours prn for pain 12/01/2014 12/30/2014 Inactive diltiazem ER (XR/XT) 240 mg capsule,extended release, controlled RxNorm: 139660 TAKE 1 CAPSULE BY MOUTH DAILY 11/30/2014 07/13/2015 Inactive Xanax 0.5 mg tablet RxNorm: 659154 1 Tablet(s) PO TID PRN as needed 11/19/2014 11/19/2014 Inactive (Appended: Controlled substance eRx refill - RxReferenceNumber: [id number]|1|0|1) Xanax 0.5 mg tablet RxNorm: 804387 TAKE 1 TABLET BY MOUTH THREE TIMES DAILY 11/19/2014 12/18/2014 Inactive Toprol XL 100 mg tablet,extended release RxNorm: 353201 TAKE 1 TABLET BY MOUTH TWICE DAILY 11/06/2014 07/15/2015 Inactive Diflucan 150 mg tablet RxNorm: 169025 1 Tablet(s) PO every other day x7 doses 11/05/2014 11/07/2014 Inactive omeprazole 20 mg capsule,delayed release RxNorm: 621271 1 Capsule(s) PO daily TAKE 1 CAPSULE BY MOUTH TWICE DAILY 11/04/2014 02/01/2015 Inactive cyclobenzaprine 10 mg tablet RxNorm: 102707 TABLET(S) 1 TABLET(S) PO NEEDED TAKE 1 TABLET BY MOUTH EVERY 8 HOURS NEEDED 10/28/2014 12/01/2014 Inactive hydrocodone 7.5 mg-acetaminophen 325 mg tablet RxNorm: 892411 1 Tablet(s) PO q 6 hours prn for pain 10/21/2014 11/19/2014 Inactive gabapentin 600 mg tablet RxNorm: 805823 1.5 Tablet(s) PO TID 04/30/2015 Inactive Xanax 0.5 mg tablet RxNorm: 790362 Tablet(s) TAKE 1 TABLET BY MOUTH THREE TIMES DAILY 10/01/2014 10/30/2014 Inactive (Response to an electronic controlled substance refill request - RxReferenceNumber: [id number]|1|0|1) Xanax 0.25 mg tablet RxNorm: 646446 1 Tablet(s) PO Q8 PRN as needed 09/30/2014 09/30/2014 Inactive Lasix 20 mg tablet RxNorm: 837933 Tablet(s) TAKE 2 TABLETS BY MOUTH EVERY MORNING AND 2 TABLETS BY MOUTH AT 3 PM 09/30/2014 11/12/2014 Inactive Victoza 3-Babak 0.6 mg/0.1 mL (18 mg/3 mL) subcutaneous pen injector RxNorm: 523173 1.2 MILLIGRAM(S) SQ DAILY 0.6 X 2 WEEKS THEN INCREASE TO 1.2MG DAILY 09/26/2014 04/13/2015 Inactive Xanax 0.5 mg tablet RxNorm: 043244 TAKE 1 TABLET BY MOUTH THREE TIMES DAILY 09/25/2014 09/30/2014 Inactive (Response to an electronic controlled substance refill request - RxReferenceNumber: [id number]|1|0|1) Zofran 4 mg tablet RxNorm: 383298 TAKE 1 TABLET BY MOUTH EVERY 4 TO 6 HOURS NEEDED 09/25/2014 09/27/2014 Inactive hydrocodone 7.5 mg-acetaminophen 325 mg tablet RxNorm: 600978 1 Tablet(s) PO q 6 hours prn for pain 09/19/2014 10/18/2014 Inactive cyclobenzaprine 10 mg tablet RxNorm: 727264 TABLET(S) 1 TABLET(S) PO NEEDED TAKE 1 [...] hydrocodone 7.5 mg-acetaminophen 325 mg tablet RxNorm: 354025 1 Tablet(s) PO q 6 hours prn for pain 08/21/2014 09/18/2014 Inactive Diflucan 150 mg tablet RxNorm: 441581 1 Tablet(s) PO every other day 08/15/2014 08/17/2014 Inactive cyclobenzaprine 10 mg tablet RxNorm: 562362 Tablet(s) 1 TABLET(S) PO NEEDED TAKE 1 TABLET BY MOUTH EVERY 8 HOURS NEEDED 08/12/2014 09/14/2014 Inactive Zofran 4 mg tablet RxNorm: 522840 TAKE 1 TABLET BY MOUTH EVERY 4 TO 6 HOURS NEEDED 07/31/2014 08/02/2014 Inactive Effexor XR 37.5 mg capsule,extended release RxNorm: 128059 CAPSULE(S) PO TAKE 2 CAPSULES BY MOUTH EVERY MORNING AND 1 CAPSULE BY MOUTH EVERY NIGHT AT BEDTIME 07/28/2014 02/15/2016 Inactive Lasix 20 mg tablet RxNorm: 182343 TAKE 2 TABLETS BY MOUTH EVERY MORNING AND 2 TABLETS BY MOUTH AT 3 PM 07/22/20142014 Inactive Diflucan 150 mg tablet RxNorm: 129791 1 Tablet(s) PO daily 06/201407/23/2014 Inactive hydrocodone 7.5 mg-acetaminophen 325 mg tablet RxNorm: 418283 1 Tablet(s) PO q 6 hours prn for pain 07/14/2014 08/12/2014 Inactive Synthroid 88 mcg tablet RxNorm: 330150 1 TABLET(S) PO DAILY 10/11/2014 Inactive Effexor XR 37.5 mg capsule,extended release RxNorm: 931847 Capsule(s) PO TAKE 2 CAPSULES BY MOUTH EVERY MORNING AND 1 CAPSULE BY MOUTH EVERY NIGHT AT BEDTIME 07/07/2014 04/09/2015 Inactive Effexor XR 37.5 mg capsule,extended release RxNorm: 604727 TAKE 2 CAPSULES BY MOUTH EVERY MORNING AND 1 CAPSULE BY MOUTH EVERY NIGHT AT BEDTIME 07/07/2014 01/02/2015 Inactive WelChol 625 mg tablet RxNorm: 200599 3 TABLET(S) PO BID 201410/04/2014 Inactive WelChol 625 mg tablet RxNorm: 447550 3 Tablet(s) PO BID 201402/01/2015 Inactive Zofran 4 mg tablet RxNorm: 763005 TAKE 1 TABLET BY MOUTH EVERY 4 TO 6 HOURS NEEDED 07/03/2014 07/05/2014 Inactive Lasix 20 mg tablet RxNorm: 920079 TAKE 2 TABLETS BY MOUTH EVERY MORNING AND 2 TABLETS BY MOUTH AT 3 PM 06/26/20142014 Inactive Diflucan 150 mg tablet RxNorm: 894941 1 Tablet(s) PO daily 06/19/2014 Inactive Promethazine VC 6.25 mg-5 mg/5 mL syrup RxNorm: 8313841 1-2 Teaspoon(s) PO Q6 PRN as needed 06/12/2014 07/21/2015 Inactive hydrocodone 7.5 mg-acetaminophen 325 mg tablet RxNorm: 209785 1 Tablet(s) PO q 6 hours prn for pain 06/03/2014 07/02/2014 Inactive Levaquin 500 mg tablet RxNorm: 203915 1 Tablet(s) PO daily 01/201506/05/2014 Inactive cyclobenzaprine 10 mg tablet RxNorm: 772226 Tablet(s) 1 TABLET(S) PO NEEDED TAKE 1 TABLET BY MOUTH EVERY 8 HOURS NEEDED 05/26/2014 No Stop Date Active cyclobenzaprine 10 mg tablet RxNorm: 877785 1 TABLET(S) PO NEEDED TAKE 1 TABLET BY MOUTH EVERY 8 HOURS NEEDED 05/26/2014 08/11/2014 Inactive Lasix 20 mg tablet RxNorm: 666906 Tablet(s) TABLET(S) PO TAKE 2 TABLETS BY MOUTH EVERY MORNING AND 2 TABLET BY MOUTH AT 3 PM 05/12/2014 06/25/2014 Inactive Combivent Respimat 20 mcg-100 mcg/actuation solution for inhalation RxNorm: 3960345 INHALE 1 PUFF BY MOUTH FOUR TIMES DAILY 05/12/2014 11/07/2014 Inactive fluconazole 150 mg tablet RxNorm: 605061 1 Tablet(s) PO UD 05/12/2014 Inactive 1 tab every other day x 5 doses Activella 0.5 mg-0.1 mg tablet RxNorm: 4392586 1 TABLET(S) PO DAILY TAKE 1 TABLET BY MOUTH DAILY FOR MENOPAUSAL SYMPTOM 05/02/2014 09/21/2015 Inactive hydrocodone 7.5 mg-acetaminophen 300 mg tablet RxNorm: 084255 Tablet(s) PO TAKE 1 TABLET BY MOUTH EVERY 6 HOURS NEEDED FOR PAIN 04/21/2014 06/03/2014 Inactive ( Appended: Controlled substance eRx refill - RxReferenceNumber: [id number]|1|0|1 ) Levaquin 500 mg tablet RxNorm: 542083 1 Tablet(s) PO daily 04/21/2014 Inactive Diflucan 150 mg tablet RxNorm: 974452 1 Tablet(s) PO every other day x 4 doses 04/10/2014 06/16/2014 Inactive Lasix 20 mg tablet RxNorm: 064161 TAKE 2 TABLETS BY MOUTH EVERY MORNING AND 1 TABLET BY MOUTH AT 3 PM 04/10/20142013 Inactive potassium chloride ER 10 mEq tablet,extended release RxNorm: 515000 1 TABLET(S) PO QDAY PRN TAKE WITH LASIX 04/09/2014 Inactive Levaquin 250 mg tablet RxNorm: 010643 1 Tablet(s) PO daily 08/201304/07/2014 Inactive 2 tabs today then 1 tab daily until gone atorvastatin 40 mg tablet RxNorm: 034708 1 Tablet(s) daily 1 TABLET(S) PO DAILY 03/25/2014 04/10/2016 Inactive TAKE 1 TABLET BY MOUTH DAILY (THIS IS AN INCREASE IN DOSAGE) Zofran 4 mg tablet RxNorm: 784417 1 Tablet(s) PO Q4-6H 201307/02/2014 Inactive Xanax 0.5 mg tablet RxNorm: 154137 TAKE 1 TABLET BY MOUTH THREE TIMES DAILY NEEDED 03/19/2014 04/17/2014 Inactive (Response to an electronic controlled substance refill request - RxReferenceNumber: [id number]|1|0|1) hydrocodone 7.5 mg-acetaminophen 300 mg tablet RxNorm: 257152 Tablet(s) PO TAKE 1 TABLET BY MOUTH EVERY 6 HOURS NEEDED FOR PAIN 03/19/2014 04/20/2014 Inactive ( Appended: Controlled substance eRx refill - RxReferenceNumber: [id number]|1|0|1 ) atorvastatin 40 mg tablet RxNorm: 460995 1 TABLET(S) PO DAILY 03/10/2014 03/24/2014 Inactive TAKE 1 TABLET BY MOUTH DAILY (THIS IS AN INCREASE IN DOSAGE) WelChol 625 mg tablet RxNorm: 302817 3 Tablet(s) PO BID 201303/06/2014 Inactive WelChol 625 mg tablet RxNorm: 463224 3 Tablet(s) PO BID 201307/04/2014 Inactive Lasix 20 mg tablet RxNorm: 968670 Tablet(s) TABLET(S) PO TAKE 2 TABLETS BY MOUTH EVERY MORNING AND 2 TABLET BY MOUTH AT 3 PM 03/03/2014 05/11/2014 Inactive Lasix 20 mg tablet RxNorm: 691115 TABLET(S) PO TAKE 2 TABLETS BY MOUTH EVERY MORNING AND 1 TABLET BY MOUTH AT 3 PM 02/20/2014 03/02/2014 Inactive gabapentin 600 mg tablet RxNorm: 216414 1.5 Tablet(s) PO TID 09/16/2014 Inactive Synthroid 88 mcg tablet RxNorm: 159652 1 TABLET(S) PO DAILY 05/18/2014 Inactive cyclobenzaprine 10 mg tablet RxNorm: 310637 1 TABLET(S) PO NEEDED TAKE 1 TABLET BY MOUTH EVERY 8 HOURS NEEDED 02/18/2014 05/25/2014 Inactive doxycycline hyclate 100 mg tablet RxNorm: 709521 1 Tablet(s) PO BID 02/13/2014 02/22/2014 Inactive Bactroban 2 % topical ointment RxNorm: 109769 1 Application TOP BID 02/13/2014 03/12/2014 Inactive Victoza 3-Babak 0.6 mg/0.1 mL (18 mg/3 mL) subcutaneous pen injector RxNorm: 495974 1.2 MILLIGRAM(S) SQ DAILY 0.6 X 2 WEEKS THEN INCREASE TO 1.2MG DAILY 02/10/2014 05/10/2014 Inactive albuterol sulfate 1.25 mg/3 mL solution for nebulization RxNorm: 164948 3 MILLILITER(S) INH TID 02/07/20142014 Inactive 1 box Victoza 3-Babak 0.6 mg/0.1 mL (18 mg/3 mL) subcutaneous pen injector RxNorm: 945537 1.8 Milligram(s) SQ daily 0.6 x 2 weeks then increase to 1.2mg daily 01/27/2014 05/26/2014 Inactive Levemir Flexpen 100 unit/mL (3 mL) solution subcutaneous insulin pen RxNorm: 831838 5units sq at hs, increase by 3 Unit(s) SQ at hs every 3days, goal FSBS 170 or less, do not increase above 20units, call doctor with report 01/27/2014 05/26/2014 Inactive hydrocodone 7.5 mg-acetaminophen 300 mg tablet RxNorm: 829006 Tablet(s) PO TAKE 1 TABLET BY MOUTH EVERY 6 HOURS NEEDED FOR PAIN 01/24/2014 03/18/2014 Inactive ( Appended: Controlled substance eRx refill - RxReferenceNumber: [id number]|1|0|1 ) Xanax 0.5 mg tablet RxNorm: 256197 1 Tablet(s) PO TID PRN as needed 01/24/2014 09/21/2014 Inactive (Appended: Controlled substance eRx refill - RxReferenceNumber: [id number]|1|0|1) Xanax 0.5 mg tablet RxNorm: 103568 TAKE 1 TABLET BY MOUTH THREE TIMES DAILY NEEDED 01/23/2014 02/21/2014 Inactive (Response to an electronic controlled substance refill request - RxReferenceNumber: [id number]|1|0|1) hydrocodone 5 mg-acetaminophen 325 mg tablet RxNorm: 283253 TAKE 1 TABLET BY MOUTH EVERY 6 HOURS NEEDED FOR PAIN 01/21/2014 02/19/2014 Inactive (Response to an electronic controlled substance refill request - RxReferenceNumber: [id number]| [id number]|1|0|1) Lasix 20 mg tablet RxNorm: 526444 TAKE 2 TABLETS BY MOUTH EVERY MORNING AND 1 TABLET BY MOUTH AT 3 PM 01/17/20142013 Inactive cyclobenzaprine 10 mg tablet RxNorm: 373566 1 Tablet(s) PO as needed TAKE 1 TABLET BY MOUTH EVERY 8 HOURS NEEDED 01/13/2014 02/17/2014 Inactive Anusol-HC 25 mg suppository RxNorm: 2584475 1 SUPPOSITORY RTL PRN ONE PER RECTUM NEEDED, UP TO TWICE DAILY FOR HEMORRHOID, NO MORE THAN 7 DAYS IN A ROW 01/10/2014 02/06/2014 Inactive Activella 0.5 mg-0.1 mg tablet RxNorm: 9964268 1 Tablet(s) PO daily TAKE 1 TABLET BY MOUTH DAILY FOR MENOPAUSAL SYMPTOM 01/08/2014 05/01/2014 Inactive gabapentin 600 mg tablet RxNorm: 020346 1.5 Tablet(s) PO TID 02/18/2014 Inactive gabapentin 600 mg tablet RxNorm: 405482 1.5 Tablet(s) PO TID 01/01/2014 Inactive hydrocodone 7.5 mg-acetaminophen 300 mg tablet RxNorm: 325127 Tablet(s) PO TAKE 1 TABLET BY MOUTH EVERY 6 HOURS NEEDED FOR PAIN 12/12/2013 01/23/2014 Inactive ( Appended: Controlled substance eRx refill - RxReferenceNumber: [id number]|1|0|1 ) Levaquin 250 mg tablet RxNorm: 561593 1 Tablet(s) PO daily 12/18/2013 Inactive 2 tabs today then 1 tab daily until gone Diflucan 150 mg tablet RxNorm: 728424 1 Tablet(s) PO daily 12/16/2013 Inactive do not stat until levaquin is completed Cartia XT 180 mg capsule,extended release RxNorm: 155621 1 CAPSULE(S) PO DAILY TAKE 1 CAPSULE BY MOUTH AT BEDTIME ..TAKE THIS IN ADDITION TO 240 MG IN THE MORNING 12/12/2013 12/06/2014 Inactive diltiazem ER (XR/XT) 240 mg capsule,extended release, controlled RxNorm: 102892 1 Capsule(s) PO daily TAKE 1 CAPSULE BY MOUTH EVERY DAY 11/28/2014 Inactive Effexor XR 37.5 mg capsule,extended release RxNorm: 177934 Capsule(s) PO TAKE 2 CAPSULES BY MOUTH EVERY MORNING AND 1 CAPSULE BY MOUTH EVERY NIGHT AT BEDTIME 12/04/2013 07/06/2014 Inactive Lasix 20 mg tablet RxNorm: TABLET(S) PO TAKE 2 TABLETS BY MOUTH EVERY MORNING AND 1 TABLET BY MOUTH AT 3 PM 12/04/2013 12/09/2014 Inactive Voltaren 1 % topical gel RxNorm: 484547 4 Gram(s) TOP QID 11/2703/26/2014 Inactive Cartia XT 180 mg capsule,extended release RxNorm: 717100 1 Capsule(s) PO daily TAKE 1 CAPSULE BY MOUTH AT BEDTIME ..TAKE THIS IN ADDITION TO 240 MG IN THE MORNING 11/27/2013 01/12/2015 Inactive Lasix 20 mg tablet RxNorm: TABLET(S) PO TAKE 2 TABLETS BY MOUTH EVERY MORNING AND 1 TABLET BY MOUTH AT 3 PM 11/26/2013 02/19/2014 Inactive colestipol 1 gram tablet RxNorm: 1831058 1 Tablet(s) PO BID TAKE 1 TABLET BY MOUTH TWICE DAILY 11/26/2013 11/20/2014 Inactive cyclobenzaprine 10 mg tablet RxNorm: 063495 Tablet(s) PO TAKE 1 TABLET BY MOUTH EVERY 8 HOURS NEEDED 11/21/20132013 Inactive Diflucan 150 mg tablet RxNorm: 390251 1 Tablet(s) PO daily TAKE 1 TABLET BY MOUTH EVERY OTHER DAY FOR 8 DOSES 11/14/201306/2013 Inactive peak flow meter-inh assist dev kit RxNorm: 1 dose Miscellaneous PRN 11/14/2013 10/27/2017 Inactive Effexor XR 37.5 mg capsule,extended release RxNorm: 604944 Capsule(s) PO TAKE 2 CAPSULES BY MOUTH EVERY MORNING AND 1 CAPSULE BY MOUTH EVERY NIGHT AT BEDTIME 11/04/2013 12/03/2013 Inactive Anusol-HC 25 mg suppository RxNorm: 2098384 1 Suppository RTL PRN one per rectum as needed, up to twice daily for hemorrhoid, no more than 7 days in a row 10/23/2013 10/22/2013 Inactive Anusol-HC 25 mg suppository RxNorm: 2600590 1 Suppository RTL PRN one per rectum as needed, up to twice daily for hemorrhoid, no more than 7 days in a row 10/23/2013 01/09/2014 Inactive Activella 0.5 mg-0.1 mg tablet RxNorm: 2523779 Tablet(s) PO TAKE 1 TABLET BY MOUTH DAILY FOR MENOPAUSAL SYMPTOM 10/21/2013 01/07/2014 Inactive cyclobenzaprine 10 mg tablet RxNorm: 429206 Tablet(s) PO TAKE 1 TABLET BY MOUTH EVERY 8 HOURS NEEDED 10/21/20132013 Inactive Lasix 20 mg tablet RxNorm: 493195 Tablet(s) PO TAKE 2 TABLETS BY MOUTH EVERY MORNING AND 1 TABLET BY MOUTH AT 3 PM 10/17/2013 02/25/2016 Inactive Bactroban 2 % topical ointment RxNorm: 101939 1 Application TOP BID 10/10/2013 11/06/2013 Inactive Zofran 4 mg tablet RxNorm: 491499 1 Tablet(s) PO Q4-6H 201303/20/2014 Inactive Bactroban 2 % topical ointment RxNorm: 287524 1 Application TOP BID 09/27/2013 10/09/2013 Inactive hydrocodone 5 mg-acetaminophen 325 mg tablet RxNorm: 535362 Tablet(s) PO TAKE 1 TABLET BY MOUTH EVERY 6 HOURS NEEDED FOR PAIN 09/26/2013 12/11/2013 Inactive ( Appended: Controlled substance eRx refill - RxReferenceNumber: [id number]|1|0|1 ) hydrocodone 5 mg-acetaminophen 325 mg tablet RxNorm: 438570 1 Tablet(s) PO Q6 PRN 09/26/2013 01/24/2014 Inactive cyclobenzaprine 10 mg tablet RxNorm: 600909 Tablet(s) PO TAKE 1 TABLET BY MOUTH EVERY 8 HOURS NEEDED 09/16/2013 No Stop Date Active omeprazole 20 mg capsule,delayed release RxNorm: 768422 Capsule(s) PO TAKE 1 CAPSULE BY MOUTH TWICE DAILY 09/02/2013 Inactive Lasix 20 mg tablet RxNorm: Tablet(s) PO TAKE 2 TABLETS BY MOUTH EVERY MORNING AND 1 TABLET BY MOUTH AT 3 PM 09/02/2013 04/10/2016 Inactive Diflucan 150 mg tablet RxNorm: 018409 Tablet(s) PO TAKE 1 TABLET BY MOUTH EVERY OTHER DAY FOR 8 DOSES 08/29/20132013 Inactive Effexor XR 37.5 mg capsule,extended release RxNorm: 968050 Capsule(s) PO TAKE 2 CAPSULES BY MOUTH EVERY MORNING AND 1 CAPSULE BY MOUTH EVERY NIGHT AT BEDTIME 08/29/2013 11/03/2013 Inactive diltiazem ER (XR/XT) 240 mg capsule,extended release, controlled RxNorm: 131527 Capsule(s) PO TAKE 1 CAPSULE BY MOUTH EVERY DAY 201312/03/2013 Inactive Xanax 0.5 mg tablet RxNorm: 416592 1 Tablet(s) PO TID PRN 11/2013 No Stop Date Active (Appended: Controlled substance eRx refill - RxReferenceNumber: [id number]| [id number]|1|0|1) colestipol 1 gram tablet RxNorm: 9742458 Tablet(s) PO TAKE 1 TABLET BY MOUTH TWICE DAILY 08/26/2013 11/25/2013 Inactive Victoza 3-Babak 0.6 mg/0.1 mL (18 mg/3 mL) subcutaneous pen injector RxNorm: 364235 1.2 Milligram(s) SQ daily 0.6 x 2 weeks then increase to 1.2mg daily 08/19/2013 12/16/2013 Inactive Synthroid 88 mcg tablet RxNorm: 921480 1 Tablet(s) PO daily 12/09/2013 Inactive Lasix 20 mg tablet RxNorm: Tablet(s) PO TAKE 2 TABLETS BY MOUTH EVERY MORNING AND 2 TABLETS BY MOUTH AT 3 PM 08/12/2013 10/18/2016 Inactive Xanax 0.5 mg tablet RxNorm: 882133 1 Tablet(s) PO TID PRN No Stop Date Active (Appended: Controlled substance eRx refill - RxReferenceNumber: [id number]| [id number]|1|0|1) Lasix 20 mg tablet RxNorm: Tablet(s) PO TAKE 2 TABLETS BY MOUTH EVERY MORNING AND 1 TABLET BY MOUTH AT 3 PM 08/07/2013 08/11/2013 Inactive Voltaren 1 % topical gel RxNorm: 833306 4 Gram(s) TOP QID 08/0111/26/2013 Inactive Zyvox 600 mg tablet RxNorm: 649335 1 Tablet(s) PO BID 201307/27/2013 Inactive please call the office is this is too expensive for the pt Zyvox 600 mg tablet RxNorm: 985279 1 Tablet(s) PO BID 201307/17/2013 Inactive hydrocodone 5 mg-acetaminophen 325 mg tablet RxNorm: 2987021 1 Tablet(s) PO Q6 PRN 07/15/2013 09/26/2013 Inactive Zofran 4 mg tablet RxNorm: 708785 1 Tablet(s) PO Q4-6H 201310/02/2013 Inactive Lasix 20 mg tablet RxNorm: Tablet(s) PO TAKE 2 TABLETS BY MOUTH EVERY MORNING AND 1 TABLET BY MOUTH AT 3 PM 07/11/2013 10/18/2016 Inactive cyclobenzaprine 10 mg tablet RxNorm: 967349 1 Tablet(s) PO Q8 PRN 06/27/2013 08/25/2013 Inactive gabapentin 600 mg tablet RxNorm: 653089 1.5 Tablet(s) PO TID 01/02/2014 Inactive Lasix 20 mg tablet RxNorm: Tablet(s) PO TAKE 2 TABLETS BY MOUTH EVERY MORNING AND 1 TABLET BY MOUTH AT 3 PM 06/17/2013 07/10/2013 Inactive hydrocodone 5 mg-acetaminophen 325 mg tablet RxNorm: 482240 1 Tablet(s) PO Q6 PRN 06/10/2013 07/14/2013 Inactive hydrocortisone 2.5 % rectal cream RxNorm: 774681 1 Suppository RTL BID PRN 06/10/2013 06/29/2013 Inactive Flexeril 10 mg tablet RxNorm: 221957 1 Tablet(s) PO Q8 PRN 06/0406/26/2013 Inactive diltiazem ER (XR/XT) 240 mg capsule,extended release, controlled RxNorm: 691769 Capsule(s) PO TAKE 1 CAPSULE BY MOUTH EVERY DAY 201310/26/2017 Inactive omeprazole 20 mg capsule,delayed release RxNorm: 795024 Capsule(s) PO TAKE 1 CAPSULE BY MOUTH TWICE DAILY 05/24/2013 Inactive colestipol 1 gram tablet RxNorm: 3316611 Tablet(s) PO TAKE 1 TABLET BY MOUTH TWICE DAILY 05/23/2013 04/21/2016 Inactive Januvia 100 mg tablet RxNorm: 236763 1 Tablet(s) PO daily 201308/18/2013 Inactive Activella 0.5 mg-0.1 mg tablet RxNorm: 793864 Tablet(s) PO TAKE 1 TABLET BY MOUTH DAILY FOR MENOPAUSAL SYMPTOM 05/17/2013 Inactive Xanax 0.5 mg tablet RxNorm: 949727 1 Tablet(s) PO TID PRN 08/06/2013 Inactive (Appended: Controlled substance eRx refill - RxReferenceNumber: [id number]| [id number]|1|0|1) Kenalog 40 mg/mL suspension for injection RxNorm: 3274950 Milliliter(s) Inj 05/07/2013 05/07/2013 Inactive levofloxacin 500 mg tablet RxNorm: 731326 1 Tablet(s) PO daily pt to take 500mg on day#1, 3, 5, 7 and 1/2 tablet on days 2, 4, 6, and 8 05/0705/14/2013 Inactive Lyrica 50 mg capsule RxNorm: 811494 1 Capsule(s) PO TID 201206/26/2013 Inactive hydrocodone 5 mg-acetaminophen 500 mg tablet RxNorm: 351286 1 Tablet(s) PO Q6 PRN 04/22/2013 06/09/2013 Inactive Zofran 4 mg tablet RxNorm: 481860 1 Tablet(s) PO Q4-6H 201207/14/2013 Inactive Zofran 4 mg tablet RxNorm: 780016 1 Tablet(s) PO Q6 PRN 04/0404/08/2013 Inactive hydrocodone 5 mg-acetaminophen 500 mg tablet RxNorm: 237637 1 Tablet(s) PO Q6 PRN 03/21/2013 04/21/2013 Inactive Diflucan 150 mg tablet RxNorm: 306277 1 Tablet(s) PO every other day 1 pill po every other day x 8 doses 03/19/201306/26 Inactive potassium chloride ER 10 mEq tablet,extended release RxNorm: 904865 1 Tablet(s) PO QDAY PRN take with lasix 03/07/201302/2014 Inactive potassium chloride ER 10 mEq tablet,extended release RxNorm: 455586 1 Tablet(s) PO QDAY PRN take with lasix 03/04/2013 Inactive fluconazole 150 mg tablet RxNorm: 930759 1 Tablet(s) PO daily 03/01/2013 02/28/2013 Inactive fluconazole 150 mg tablet RxNorm: 931539 1 Tablet(s) PO daily 03/01/2013 03/05/2013 Inactive Combivent 18 mcg-103 mcg/actuation Aerosol Inhaler RxNorm: 935254 2 Puff(s) INH QID 02/12/2013 02/12/2013 Inactive Zofran 4 mg tablet RxNorm: 191490 1 Tablet(s) PO Q6 PRN 02/1104/03/2013 Inactive Lasix 20 mg tablet RxNorm: 001272 1 Tablet(s) PO BID one pill in morning and one pill in afternoon (3pm) 02/04/2013 Inactive Xopenex HFA 45 mcg/actuation Aerosol Inhaler RxNorm: 322441 2 INH QID 01/29/2013 09/21/2015 Inactive Effexor XR 37.5 mg capsule,extended release RxNorm: 206881 2 q am and 1 at hs Capsule(s) PO TAKE 2 CAPSULES BY MOUTH EVERY MORNING AND 1 CAPSULE EVERY NIGHT AT BEDTIME 01/29/2013 02/15/2016 Inactive fluconazole 150 mg tablet RxNorm: 885432 1 Tablet(s) PO daily 01/29/2013 02/02/2013 Inactive hydrocodone 5 mg-acetaminophen 500 mg tablet RxNorm: 165973 1 Tablet(s) PO Q6 PRN 01/29/2013 03/20/2013 Inactive Effexor XR 37.5 mg capsule,extended release RxNorm: 625240 Capsule(s) PO 01/29/2013 08/28/2013 Inactive TAKE 2 CAPSULES BY MOUTH EVERY MORNING AND 1 CAPSULE EVERY NIGHT AT BEDTIME doxycycline hyclate 100 mg tablet RxNorm: 694923 1 Tablet(s) PO BID 01/01/2013 01/10/2013 Inactive doxycycline hyclate 100 mg tablet RxNorm: 427793 1 Tablet(s) PO BID 01/01/2013 12/31/2012 Inactive Synthroid 75 mcg tablet RxNorm: 795205 1 Tablet(s) PO daily 06/29/2013 Inactive Synthroid 75 mcg tablet RxNorm: 487524 1 Tablet(s) PO daily 12/31/2012 Inactive Xanax 0.5 mg tablet RxNorm: 006812 Tablet(s) PO TAKE 1/2 TO 1 TABLET BY MOUTH EVERY 8 HOURS NEEDED FOR ANXIETY 12/27/2012 05/06/2013 Inactive (Appended: Controlled substance eRx refill - RxReferenceNumber: [id number]|1|0|1) Lasix 20 mg tablet RxNorm: 222852 1 Tablet(s) PO daily 201202/03/2013 Inactive Santyl 250 unit/gram Topical Ointment RxNorm: 8381895 1 Application TOP daily 12/20/2012 12/29/2012 Inactive Levaquin 500 mg tablet RxNorm: 510852 1 Tablet(s) PO daily 05/201212/26/2012 Inactive acyclovir 400 mg tablet RxNorm: 425579 1 Tablet(s) PO TID 12/0312/09/2012 Inactive acyclovir 400 mg tablet RxNorm: 438165 1 Tablet(s) PO TID 12/0312/02/2012 Inactive fluconazole 150 mg tablet RxNorm: 022662 1 Tablet(s) PO daily 11/26/2012 11/30/2012 Inactive Effexor XR 37.5 mg capsule,extended release RxNorm: 048605 Capsule(s) PO TAKE 2 CAPSULES BY MOUTH EVERY MORNING AND 1 CAPSULE EVERY NIGHT AT BEDTIME 11/14/2012 01/28/2013 Inactive albuterol sulfate 1.25 mg/3 mL solution for nebulization RxNorm: 563035 3 Milliliter(s) INH TID 10/29/20122012 Inactive 1 box Cartia XT 180 mg capsule,extended release RxNorm: 766337 1 Capsule(s) PO daily TAKE 1 CAPSULE BY MOUTH AT BEDTIME ..TAKE THIS IN ADDITION TO 240 MG IN THE MORNING 10/29/2012 11/26/2013 Inactive acyclovir 800 mg tablet RxNorm: 874493 1 Tablet(s) PO BID 10/2911/04/2012 Inactive Diflucan 150 mg tablet RxNorm: 833468 1 Tablet(s) PO daily 10/14/2012 Inactive TAKE 1 TABLET BY MOUTH EVERY DAY Toprol XL 100 mg tablet,extended release RxNorm: 958848 1 Tablet(s) PO BID 10/11/2012 09/05/2013 Inactive Zithromax Z-Babak 250 mg tablet RxNorm: 509950 Tablet(s) PO UD as directed. 1 refill , please take back to back 10/05/2012 No Stop Date Active Kenalog 40 mg/mL Susp for Injection RxNorm: 4332918 1 Milliliter(s) Inj QID 09/21/2012 05/07/2013 Inactive fluconazole 150 mg tablet RxNorm: 764755 1 Tablet(s) PO every other day x 5 doses 09/12/2012 11/25/2012 Inactive levothyroxine 50 mcg tablet RxNorm: 284869 1 Tablet(s) PO daily 09/06/2012 12/31/2012 Inactive atorvastatin 40 mg tablet RxNorm: 902893 1 Tablet(s) PO daily 09/06/2012 08/31/2013 Inactive TAKE 1 TABLET BY MOUTH DAILY (THIS IS AN INCREASE IN DOSAGE) Xanax 0.5 mg tablet RxNorm: 225987 Tablet(s) PO TAKE 1/2 TO 1 TABLET BY MOUTH EVERY 8 HOURS NEEDED FOR ANXIETY 08/27/2012 12/26/2012 Inactive (Appended: Controlled substance eRx refill - RxReferenceNumber: [id number]|1|0|1) Zofran 4 mg tablet RxNorm: 747792 1 Tablet(s) PO Q6 PRN 08/1302/10/2013 Inactive Cipro 500 mg tablet RxNorm: 020669 1 Tablet(s) PO BID 201208/07/2012 Inactive Cipro 500 mg tablet RxNorm: 906217 1 Tablet(s) PO BID 201208/12/2012 Inactive Flagyl 500 mg tablet RxNorm: 494861 1 Tablet(s) PO TID 201208/12/2012 Inactive cefdinir 300 mg capsule RxNorm: 103340 1 Capsule(s) PO BID 08/201207/29/2012 Inactive nystatin 100,000 unit/mL Oral Susp RxNorm: 495822 6 Unit(s) PO QID 07/06/2012 07/15/2012 Inactive Kenalog 40 mg/mL Susp for Injection RxNorm: 8836670 1 Milliliter(s) Inj 07/06/2012 07/06/2012 Inactive Zithromax 500 mg tablet RxNorm: 9980937 1 Tablet(s) PO daily 07/10/2012 Inactive metformin 850 mg tablet RxNorm: 270149 1/2 Tablet(s) PO TID 09/201208/24/2012 Inactive TAKE 1 TABLET BY MOUTH IN THE MORNING, 1/2 TABLET AT NOON, AND 1 TABLET IN THE EVENING Lyrica 50 mg capsule RxNorm: 127688 1 Capsule(s) PO TID 201206/25/2012 Inactive Diflucan 150 mg tablet RxNorm: 903597 1 Tablet(s) PO daily 05/201206/25/2012 Inactive TAKE 1 TABLET BY MOUTH EVERY DAY Levaquin 500 mg tablet RxNorm: 538663 1 Tablet(s) PO daily 06/19/2012 Inactive Pneumovax 23 25 mcg/0.5 mL Injection RxNorm: 451218 1/2 Milliliter(s) Inj 06/07/2012 06/07/2012 Inactive metformin 850 mg tablet RxNorm: 204379 1/2 Tablet(s) PO BID 06/25/2012 Inactive TAKE 1 TABLET BY MOUTH IN THE MORNING, 1/2 TABLET AT NOON, AND 1 TABLET IN THE EVENING cefdinir 300 mg capsule RxNorm: 985894 1 Capsule(s) PO BID 02/201305/30/2012 Inactive cefdinir 300 mg capsule RxNorm: 495301 1 Capsule(s) PO BID 02/201306/06/2012 Inactive prednisone 10 mg tablets in a dose pack RxNorm: 630703 Tablet(s) PO UD 6-5-4-3-2- 1 05/31/2012 05/06/2013 Inactive Cipro 500 mg tablet RxNorm: 521055 1 Tablet(s) PO BID 201206/03/2012 Inactive Xanax 0.5 mg tablet RxNorm: 991837 Tablet(s) PO TAKE 1/2 TO 1 TABLET BY MOUTH EVERY 8 HOURS NEEDED FOR ANXIETY 05/28/2012 08/27/2012 Inactive (Appended: Controlled substance eRx refill - RxReferenceNumber: [id number]|1|0|1) Cartia XT 180 mg capsule,extended release RxNorm: 373828 Capsule(s) PO TAKE 1 CAPSULE BY MOUTH AT BEDTIME ..TAKE THIS IN ADDITION TO 240 MG IN THE MORNING 05/24/2012 10/28/2012 Inactive Diflucan 150 mg tablet RxNorm: 133426 1 Tablet(s) PO daily 06/201205/26/2012 Inactive TAKE 1 TABLET BY MOUTH EVERY DAY Cartia XT 240 mg capsule,extended release RxNorm: 941060 1 Capsule(s) PO QAM 05/23/2012 09/06/2012 Inactive in addition to 180mg q pm omeprazole 20 mg capsule,delayed release RxNorm: 278144 Capsule(s) PO TAKE 1 CAPSULE BY MOUTH TWICE DAILY 05/21/2012 Inactive diltiazem ER (XR/XT) 240 mg capsule,extended release, controlled RxNorm: 111158 1 Capsule(s) PO daily TAKE ONE CAPSULE BY MOUTH EVERY DAY 05/21/2012 05/30/2013 Inactive Toprol XL 25 mg tablet,extended release RxNorm: 899147 1 Tablet(s) PO QPM take with 50mg (1/2 tab of 100mg) each evening. Continue 100mg in the morning. 05/17/2012 05/27/2012 Inactive Activella 0.5 mg-0.1 mg tablet RxNorm: 7486711 Tablet(s) PO TAKE 1 TABLET BY MOUTH DAILY FOR MENOPAUSAL SYMPTOM 05/09/2012 05/16/2013 Inactive colestipol 1 gram tablet RxNorm: 0126861 Tablet(s) PO TAKE 1 TABLET BY MOUTH TWICE DAILY 05/08/2012 04/21/2016 Inactive Kenalog 40 mg/mL Susp for Injection RxNorm: 7162475 1 Milliliter(s) Inj 05/02/2012 05/02/2012 Inactive Xanax 0.5 mg tablet RxNorm: 900371 Tablet(s) PO 04/16/2012 05/28/2012 Inactive TAKE 1/2 TO 1 TABLET BY MOUTH EVERY 8 HOURS NEEDED FOR ANXIETY (Appended: Controlled substance eRx refill - RxReferenceNumber: [id number]|1|0|1) Diflucan 150 mg tablet RxNorm: 496654 1 Tablet(s) PO daily 05/22/2012 Inactive TAKE 1 TABLET BY MOUTH EVERY DAY Cipro 500 mg tablet RxNorm: 730328 1 Tablet(s) PO BID 201104/19/2012 Inactive Zithromax Z-Babak 250 mg tablet RxNorm: 395461 Tablet(s) PO UD 05/30/2012 Inactive metformin 850 mg tablet RxNorm: 091482 Tablet(s) PO take one pill by mouth in AM, 1/2 at noon, and 1 pill in the evening. 03/16/2012 06/06/2012 Inactive TAKE 1 TABLET BY MOUTH IN THE MORNING, 1/2 TABLET AT NOON, AND 1 TABLET IN THE EVENING Xanax 0.5 mg tablet RxNorm: 309939 Tablet(s) PO 03/05/2012 04/15/2012 Inactive TAKE 1/2 TO 1 TABLET BY MOUTH EVERY 8 HOURS NEEDED FOR ANXIETY (Appended: Controlled substance eRx refill - RxReferenceNumber: [id number]|1|0|1) potassium chloride ER 10 mEq tablet,extended release RxNorm: 106136 1 Tablet(s) PO QDAY PRN take with lasix 03/05/201204/2013 Inactive potassium chloride ER 10 mEq tablet,extended release RxNorm: 156266 1 Tablet(s) PO QDAY PRN take with lasix 02/28/2012 Inactive Lasix 20 mg tablet RxNorm: 915774 Tablet(s) PO QDAY PRN 02/2708/25/2012 Inactive doxycycline hyclate 100 mg capsule RxNorm: 689149 1 Capsule(s) PO BID 02/27/2012 03/04/2012 Inactive Effexor XR 37.5 mg capsule,extended release RxNorm: 594577 Capsule(s) PO 02/26/2012 01/28/2013 Inactive TAKE 2 CAPSULES BY MOUTH EVERY MORNING AND 1 CAPSULE EVERY NIGHT AT BEDTIME Lomotil 2.5 mg-0.025 mg tablet RxNorm: 8673496 Tablet(s) PO 07/201103/05/2012 Inactive 1 after each loose bm limit 4 per day doxycycline hyclate 100 mg capsule RxNorm: 513214 1 Capsule(s) PO BID 02/15/2012 02/21/2012 Inactive Diflucan 150 mg tablet RxNorm: 660240 Tablet(s) PO daily 201102/21/2012 Inactive TAKE 1 TABLET BY MOUTH EVERY DAY colestipol,micronized 1 gram tablet RxNorm: 5789586 Tablet(s) PO 02/06/2012 04/21/2016 Inactive TAKE 1 TABLET BY MOUTH TWICE DAILY Effexor XR 37.5 mg capsule,extended release RxNorm: 297319 Capsule(s) PO 02/06/2012 02/16/2016 Inactive TAKE 2 CAPSULES BY MOUTH EVERY MORNING AND 1 CAPSULE EVERY NIGHT AT BEDTIME potassium chloride ER 10 mEq tablet,extended release RxNorm: 849949 1 Tablet(s) PO QDAY PRN take with lasix 02/01/201212/2011 Inactive Levaquin 500 mg tablet RxNorm: 477563 1 Tablet(s) PO daily 04/201202/07/2012 Inactive Diflucan 150 mg tablet RxNorm: 912468 Tablet(s) PO 01/27/2012 02/14/2012 Inactive TAKE 1 TABLET BY MOUTH EVERY DAY Effexor XR 37.5 mg capsule,extended release RxNorm: 693566 Capsule(s) PO 01/05/2012 02/05/2012 Inactive TAKE 2 CAPSULES BY MOUTH EVERY MORNING , AND 1 CAPSULE BY MOUTH EVERY NIGHT AT BEDTIME Effexor XR 37.5 mg capsule,extended release RxNorm: 877422 Capsule(s) PO 12/29/2011 01/04/2012 Inactive TAKE 2 CAPSULES BY MOUTH EVERY MORNING , AND 1 CAPSULE BY MOUTH EVERY NIGHT AT BEDTIME Diflucan 150 mg tablet RxNorm: 805792 Tablet(s) PO 12/29/2011 04/09/2012 Inactive TAKE 1 TABLET BY MOUTH EVERY DAY Cipro 500 mg tablet RxNorm: 861611 1 Tablet(s) PO BID 201101/07/2012 Inactive Toprol XL 100 mg tablet,extended release RxNorm: 162416 Tablet(s) PO as doctor directed one tab in am and 1/2 at night 11/30/2011 10/10/2012 Inactive Phenergan 25 mg/mL Injection RxNorm: 701212 Milliliter(s) Inj 11/30/2011 11/30/2011 Inactive Toprol XL 100 mg 24 hr Tab RxNorm: 367700 1.5 Tablet(s) PO as doctor directed one tab in am and 1/2 at night 11/17/201102/2012 Inactive Xopenex HFA 45 mcg/actuation Aerosol Inhaler RxNorm: 698009 2 INH QID 11/08/2011 12/01/2012 Inactive Effexor XR 150 mg 24 hr Cap RxNorm: 977183 1 Capsule(s) PO daily 10/24/2011 01/04/2012 Inactive Xanax 0.5 mg tablet RxNorm: 004640 1/2-1 Tablet(s) PO Q8 PRN 10/20/2011 03/05/2012 Inactive levothyroxine 25 mcg tablet RxNorm: 283948 Tablet(s) PO 201109/05/2012 Inactive TAKE 1 TABLET BY MOUTH DAILY Xanax 0.5 mg Tab RxNorm: 992940 1/2-1 Tablet(s) PO Q8 PRN 09/26/2011 10/19/2011 Inactive potassium chloride ER 10 mEq Tab RxNorm: 581091 1 Tablet(s) PO daily 09/20/2011 09/24/2011 Inactive Lasix 20 mg Tab RxNorm : 772156 1 Tablet(s) PO daily 09/20/2011 09/24/2011 Inactive Xanax 0.5 mg Tab RxNorm: 174963 1/2-1 Tablet(s) PO Q8 PRN 09/12/2011 09/25/2011 Inactive Xanax 0.5 mg Tab RxNorm: 157764 1/2-1 Tablet(s) PO Q8 PRN 08/24/2011 09/11/2011 Inactive Lipitor 20 mg tablet RxNorm: 104497 Tablet(s) PO 08/22/2011 09/05/2012 Inactive TAKE 1 TABLET BY MOUTH DAILY (THIS IS AN INCREASE IN DOSAGE) Cipro 500 mg Tab RxNorm: 737166 1 Tablet(s) PO BID 201110/24/2011 Inactive Flagyl 500 mg Tab RxNorm: 809338 1 Tablet(s) PO TID 201110/24/2011 Inactive Diflucan 150 mg Tab RxNorm: 606602 1 Tablet(s) PO daily 201110/24/2011 Inactive Kenalog 40 mg/mL Susp for Injection RxNorm: 4409734 1 Milliliter(s) Inj 08/01/2011 10/24/2011 Inactive FreeStyle Lancets RxNorm: 1 test Miscellaneous TID 201107/08/2014 Inactive dispense quantity sufficient for three times daily testing for diabetes FreeStyle Test strips RxNorm: 1 Miscellaneous BID 07/21/2011 08/13/2012 Inactive please give lancets alsodx 250.02 Xanax 0.25 mg Tab RxNorm: 442093 1 Tablet(s) PO Q8 PRN 07/06 No Stop Date Active colestipol 1 gram Tab RxNorm: 6408994 Tablet(s) PO 07/04/2011 04/21/2016 Inactive TAKE 1 TABLET BY MOUTH TWICE DAILY DIRECTED colestipol 1 gram tablet RxNorm: 1534253 1 Tablet(s) PO BID 07/03/2011 Inactive Cartia XT 180 mg capsule,extended release RxNorm: 808318 1 Capsule(s) PO QHS 06/30/2011 11/16/2011 Inactive in addition to 240mg q am venlafaxine 37.5 mg Tab RxNorm: 521107 1 Tablet(s) PO BID 06/2406/29/2011 Inactive prednisone 5 mg Tab RxNorm: 697079 Tablet(s) PO UD 2011 10/24/2011 Inactive six day taper #21 Lyrica 50 mg capsule RxNorm: 662494 1 Capsule(s) PO TID 201108/18/2011 Inactive Diflucan 150 mg tablet RxNorm: 612274 1 Tablet(s) PO daily 06/24/2011 Inactive levofloxacin 500 mg Tab RxNorm: 119285 1 Tablet(s) PO daily 08/15/2011 Inactive azithromycin 250 mg Tab RxNorm: 191373 PO 05/23/2011 06/20/2011 Inactive omeprazole 20 mg capsule,delayed release RxNorm: 982837 Capsule(s) PO 05/10/2011 05/20/2012 Inactive TAKE 1 CAPSULE BY MOUTH TWICE DAILY;Patient requests 90 day supply diltiazem ER (XR/XT) 240 mg capsule,extended release, controlled RxNorm: 695868 Capsule(s) PO 04/19/2011 05/21/2012 Inactive TAKE 1 CAPSULE BY MOUTH EVERY MORNING;Patient requests 90 day supply Kenalog 40 mg/mL Susp for Injection RxNorm: 6811246 1 Milliliter(s) Inj 04/18/2011 06/20/2011 Inactive clindamycin 300 mg Cap RxNorm: 070961 1 Capsule(s) PO BID 04/1806/20/2011 Inactive lisinopril-hydrochlorothiazide 20 mg-12.5 mg Tab RxNorm: 855496 2 Tablet(s) PO daily 04/18/2011 10/24/2011 Inactive fluconazole 150 mg Tab RxNorm: 178962 1 Tablet(s) PO daily 07/201006/20/2011 Inactive Activella 0.5 mg-0.1 mg tablet RxNorm: 2653516 Tablet(s) PO 05/201005/08/2012 Inactive TAKE 1 TABLET BY MOUTH DAILY FOR MENOPAUSAL SYMPTOM diltiazem ER (XR/XT) 240 mg Continuous Release Cap RxNorm: 946215 1 Capsule(s) PO daily 03/17/2011 03/16/2011 Inactive diltiazem ER (XR/XT) 240 mg Continuous Release Cap RxNorm: 271185 Capsule(s) PO 03/17/2011 06/20/2011 Inactive TAKE 1 CAPSULE BY MOUTH EVERY MORNING metformin 850 mg tablet RxNorm: 767645 1 Tablet(s) PO as doctor directed take one pill by mouth in AM, 1/2 at noon, and 1 pill in the evening. 01/21/2011 04/20/2011 Inactive Xopenex 1.25 mg/3 mL solution for nebulization RxNorm: 823729 3 Milliliter(s) INH Q6 PRN No Start Date Active Novolog Flexpen U-100 Insulin aspart 100 unit/mL subcutaneous RxNorm: 5943926 10 units with meals plus SSI in [...] 301-325 Lomotil 2.5 mg-0.025 mg tablet RxNorm: 6224251 Tablet(s) PO No Start Date 02/21/2012 Inactive 1 after each loose bm limit 4 per day Novolog Flexpen U-100 Insulin aspart 100 unit/mL subcutaneous RxNorm: 6947027 10 Unit(s) SQ AC No Start Date 10/26 Inactive with sliding scale-Dr Raines T[place]il[place]te FlexTouch U-100 100 unit/mL (3 mL) subcutaneous insulin pen RxNorm: 2022031 40 Unit(s) SQ daily No Start Date Inactive gabapentin 600 mg tablet RxNorm: 984092 1 Tablet(s) PO TID No Start Date 06/26/2013 Inactive Effexor XR 37.5 mg capsule,extended release RxNorm: 614682 1 Capsule(s) PO BID No Start Date 10/23/2011 Inactive Levemir FlexTouch 100 unit/mL (3 mL) subcutaneous insulin pen RxNorm: 249171 50 Unit(s) SQ BID No Start Date 04/24/2017 Inactive Combivent Respimat 20 mcg-100 mcg/actuation solution for inhalation RxNorm: 9550674 1 INH QID No Start Date 05/11/2014 Inactive Xanax 0.5 mg Tab RxNorm: 124336 1/2-1 Tablet(s) PO Q8 PRN No Start Date 08/23/2011 Inactive Xopenex HFA 45 mcg/actuation Aerosol Inhaler RxNorm: 591908 2 INH QID No Start Date 11/07/2011 Inactive promethazine 25 mg tablet RxNorm: 878086 1 Tablet(s) PO Q8 as needed No Start Date 08/12/2015 Inactive colestipol 1 gram Tab RxNorm: 5050599 1 Tablet(s) PO BID No Start Date 07/03/2011 Inactive Cartia XT 240 mg capsule,extended release RxNorm: 325158 1 Capsule(s) PO QAM No Start Date 05/22/2012 Inactive in addition to 180mg q pm Lipitor 20 mg Tab RxNorm: 387707 1 Tablet(s) PO daily No Start Date 08/21/2011 Inactive FreeStyle Test Strips RxNorm: 1 Miscellaneous BID No Start Date 07/20/2011 Inactive Shreeumary OttooStar U-300 Insulin 300 unit/mL (1.5 mL) subcutaneous pen RxNorm: 6737922 40 Unit(s) SQ BID No Start Date 10/26/2017 Inactive Diflucan 150 mg tablet RxNorm: 717224 1 Tablet(s) PO daily 1 pill po every other day x 8 doses No Start Date 03/18/2013 Inactive hydrocodone 5 mg-acetaminophen 500 mg tablet RxNorm: 336270 1 Tablet(s) PO Q6 PRN No Start Date 01/28/2013 Inactive Lasix 20 mg tablet RxNorm: 596723 Tablet(s) PO QDAY PRN No Start Date 02/27/2012 Inactive Promethazine VC 6.25 mg-5 mg/5 mL Syrup RxNorm: 9366817 1-2 PO Q6 PRN No Start Date 10/07/2013 Inactive promethazine 25 mg tablet RxNorm: 199401 1 Tablet(s) PO Q6 PRN No Start Date 02/09/2017 Inactive digoxin 125 mcg tablet RxNorm: 746990 1 Tablet(s) PO daily No Start Date 06/20/2017 Inactive Xanax 0.25 mg Tab RxNorm: 207908 1 Tablet(s) PO Q8 PRN No Start Date 07/05/2011 Inactive Diflucan 150 mg tablet RxNorm: 753967 1 Tablet(s) PO every other day x 4 doses No Start Date 04/09/2014 Inactive Carafate 100 mg/mL Oral Susp RxNorm: 619689 2 Teaspoon(s) PO daily No Start Date 10/24/2011 Inactive prednisone 5 mg Tab RxNorm: 247882 Tablet(s) PO UD No Start Date 06/22/2011 Inactive six day taper #21 Tessalon Perles 100 mg capsule RxNorm: 498752 2 Capsule(s) PO TID as needed No Start Date 05/16/2017 Inactive Bactroban 2 % topical ointment RxNorm: 542924 1 Application TOP BID No Start Date 09/26/2013 Inactive Phenergan 25 mg tablet RxNorm: 952559 1 Tablet(s) PO Q8 as needed nausea No Start Date 06/28/2015 Inactive flecainide 50 mg tablet RxNorm: 173915 1 Tablet(s) PO BID No Start Date 02/01/2016 Inactive Activella 0.5 mg-0.1 mg Tab RxNorm: 4746227 1 Tablet(s) PO daily No Start Date 03/21/2011 Inactive hydrocodone 10 mg-acetaminophen 325 mg tablet RxNorm: 506415 1 Tablet(s) PO Q6 as needed No Start Date 02/04/2016 Inactive lisinopril 20 mg Tab RxNorm: 843071 1 Tablet(s) PO daily No Start Date 06/20/2011 Inactive prednisone 10 mg tablets in a dose pack RxNorm: 435899 Tablet(s) PO UD 6-5-4-3-2- 1 No Start Date 05/30/2012 Inactive hydrocodone 7.5 mg-acetaminophen 325 mg tablet RxNorm: 027830 1 Tablet(s) PO Q6 PRN No Start Date 10/06/2013 Inactive hyoscyamine 0.125 mg sublingual tablet RxNorm: 4650231 1 Tablet(s) SL TID as needed No Start Date 05/16/2017 Inactive Cartia XT 180 mg 24 hr Cap RxNorm: 350122 1 Capsule(s) PO QHS No Start Date 06/29/2011 Inactive in addition to 240mg q am Zofran 4 mg tablet RxNorm: 583219 1 Tablet(s) PO Q6 PRN No Start Date 08/12/2012 Inactive omeprazole 20 mg Cap, Delayed Release RxNorm: 409728 1 Capsule(s) PO BID No Start Date 05/09/2011 Inactive venlafaxine 37.5 mg Tab RxNorm: 152377 1 Tablet(s) PO BID No Start Date 10/24/2011 Inactive Vesicare 10 mg tablet RxNorm: 248823 1 Tablet(s) PO daily No Start Date 09/28/2015 Inactive levothyroxine 25 mcg Tab RxNorm: 793509 1 Tablet(s) PO daily No Start Date 10/18/2011 Inactive Zithromax Z-Babak 250 mg tablet RxNorm: 625992 Tablet(s) PO UD No Start Date 04/01/2012 Inactive Januvia 100 mg tablet RxNorm: 516125 1 Tablet(s) PO daily No Start Date 05/22/2013 Inactive Lantus Solostar 100 unit/mL (3 mL) subcutaneous insulin pen RxNorm: 036788 Unit( s) SQ No Start Date 04/17/2017 Inactive 10 units q am and 50units at night fluconazole 150 mg tablet RxNorm: 324163 1 Tablet(s) PO every other day x 5 doses No Start Date 09/11/2012 Inactive Toprol XL 25 mg 24 hr Tab RxNorm: 709992 1 Tablet(s) PO daily No Start Date 11/16/2011 Inactive Medication Administered Medication Codes Instructions Start Date Status Kenalog 40 mg/mL suspension for injection RxNorm: 6194782 Milliliter 06/26/2015 No longer Active Kenalog 40 mg/mL suspension for injection RxNorm: 9830933 Milliliter 05/07/2013 No longer Active Kenalog 40 mg/mL Susp for Injection RxNorm: 8010100 1Milliliter 07/06/2012 No longer Active Pneumovax 23 25 mcg/0.5 mL Injection RxNorm: 334337 1/2Milliliter 06/07/2012 No longer Active Kenalog 40 mg/mL Susp for Injection RxNorm: 3834377 1Milliliter 05/02/2012 No longer Active Phenergan 25 mg/mL Injection RxNorm: 784002 Milliliter 11/30/2011 No longer Active Immunizations Vaccine [...] 26.2 pg 02/20/2018 Cbc With Differential Ord2 [place]% 5.7 % 02/20/2018 Cbc With Differential Ord2 [...] 1.61 K/ul 02/20/2018 Cbc With Differential Ord2 [place] ABS# 0.5 K/ul 02/20/2018 Cbc With Differential Ord2 Eos ABS# 0.1 K/ul 02/20/2018 Cbc With Differential Ord2 Baso ABS# 0.0 K/ul 02/20/2018 Comp Metabolic Few142 NA 134 mEq/L 02/20/2018 Comp Metabolic Wvr342 K 3.9 mEq/L 02/20/2018 Comp Metabolic Zci411 CL 90 mEq/L 02/20/2018 Comp Metabolic Wjz372 CO2 32.0 mEq/L 02/20/2018 Comp Metabolic Diq601 ANION GAP 16 02/20/2018 Comp Metabolic Ynu658 GLUCOSE 287 mg/dL 02/20/2018 Comp Metabolic Lth357 Creat 0.8 mg/dL 02/20/2018 Comp Metabolic Oar673 eGFR 72 ml/min/1.73m2 02/20/2018 Comp Metabolic Ymt832 BUN 13 mg/dL 02/20/2018 Comp Metabolic Esg166 B/C Ratio 15.5 Ratio 02/20/2018 Comp Metabolic Jgg149 CALCIUM 9.0 mg/dL 02/20/2018 Comp Metabolic Xmn730 ALK PHOS 120 U/L 02/20/2018 Comp Metabolic Ujq222 AST(SGOT) 21 U/L 02/20/2018 Comp Metabolic Jwe901 ALT(SGPT) 17 U/L 02/20/2018 Comp Metabolic Rbm462 BILI T 0.4 mg/dL 02/20/2018 Comp Metabolic Rvb204 ALBUMIN 3.8 g/dL 02/20/2018 Comp Metabolic Zbd290 TPRO 6.9 g/dL 02/20/2018 Comp Metabolic Dqg910 GLOB 3.1 g/dL 02/20/2018 Comp Metabolic Irf963 A/G Ratio 1.3 Ratio 02/20/2018 Comp Metabolic Pfg970 Osmo 279 mOsmo 02/20/2018 Vitamin D 25 Oh Dnl4182 VITAMIN D, 25 HYDROXY 26.48 ng/mL Digoxin Ord9 DIGOXIN 0.7 NG/ML 02/20/2018 Culture Urine [id number] URINE CULTURE SEE NOTES 12/01/2017 Urine Culture Ucult Complete >100,000 col/ml aerobic growth sent to ref lab 11/29/2017 Comp Metabolic Ixu642 NA 135 mEq/L 08/21/2017 Comp Metabolic Elw807 K 4.6 mEq/L 08/21/2017 Comp Metabolic Xmf383 CL 92 mEq/L 08/21/2017 Comp Metabolic Yzq067 CO2 32.0 mEq/L 08/21/2017 Comp Metabolic Qyw079 ANION GAP 16 08/21/2017 Comp Metabolic Wgz219 GLUCOSE 298 mg/dL 08/21/2017 Comp Metabolic Lrl744 Creat 1.1 mg/dL 08/21/2017 Comp Metabolic Xyp976 eGFR 54 ml/min/1.73m2 08/21/2017 Comp Metabolic Uze628 BUN 22 mg/dL 08/21/2017 Comp Metabolic Kax866 B/C Ratio 20.6 Ratio 08/21/2017 Comp Metabolic Rnv405 CALCIUM 9.3 mg/dL 08/21/2017 Comp Metabolic Aiq779 ALK PHOS 145 U/L 08/21/2017 Comp Metabolic Lul248 AST(SGOT) 31 U/L 08/21/2017 Comp Metabolic Cgh984 ALT(SGPT) 19 U/L 08/21/2017 Comp Metabolic Lwm527 BILI T 0.3 mg/dL 08/21/2017 Comp Metabolic Vax724 ALBUMIN 3.8 g/dL 08/21/2017 Comp Metabolic Umm617 TPRO 7.1 g/dL 08/21/2017 Comp Metabolic Inc636 GLOB 3.3 g/dL 08/21/2017 Comp Metabolic Mev817 A/G Ratio 1.2 Ratio 08/21/2017 Comp Metabolic Kbj244 Osmo 285 mOsmo 08/21/2017 Cbc With Differential [...] 88.1 fl 08/18/2017 Cbc With Differential Ord2 [place]% 6.9 % 08/18/2017 Cbc With Differential Ord2 [...] 2.05 K/ul 08/18/2017 Cbc With Differential Ord2 [place] ABS# 0.7 K/ul 08/18/2017 Cbc With Differential Ord2 Eos ABS# 0.3 K/ul 08/18/2017 Cbc With Differential Ord2 Baso ABS# 0.0 K/ul 08/18/2017 %Hba1C Rdq352 % HbA1c 89519-4 11.5 % 06/13/2017 %Hba1C Kwj390 Gluc Ave 283 mg/dL 06/13/2017 Cbc With [...] 20.0 % 03/27/2017 Cbc With Differential Ord2 [place]% 7.2 % 03/27/2017 Cbc With Differential Ord2 [...] 2.11 K/ul 03/27/2017 Cbc With Differential Ord2 [place] ABS# 0.8 K/ul 03/27/2017 Cbc With Differential Ord2 Eos ABS# 0.2 K/ul 03/27/2017 Cbc With Differential Ord2 Baso ABS# 0.0 K/ul 03/27/2017 Digoxin Ord9 DIGOXIN 0.5 NG/ML 03/27/2017 Comp Metabolic Cew013 NA 136 mEq/L 03/27/2017 Comp Metabolic Ark771 K 4.1 mEq/L 03/27/2017 Comp Metabolic Bce528 CL 90 mEq/L 03/27/2017 Comp Metabolic Maq535 CO2 34.0 mEq/L 03/27/2017 Comp Metabolic Elo422 ANION GAP 16 03/27/2017 Comp Metabolic Qpq361 GLUCOSE 325 mg/dL 03/27/2017 Comp Metabolic Qey909 Creat 1.0 mg/dL 03/27/2017 Comp Metabolic Nhq495 eGFR 62 ml/min/1.73m2 03/27/2017 Comp Metabolic Ndt435 BUN 15 mg/dL 03/27/2017 Comp Metabolic Zfa546 B/C Ratio 15.8 Ratio 03/27/2017 Comp Metabolic Ewi848 CALCIUM 9.5 mg/dL 03/27/2017 Comp Metabolic Jdq502 ALK PHOS 159 U/L 03/27/2017 Comp Metabolic Usa895 AST(SGOT) 57 U/L 03/27/2017 Comp Metabolic Cqm874 ALT(SGPT) 32 U/L 03/27/2017 Comp Metabolic Ebp372 BILI T 0.4 mg/dL 03/27/2017 Comp Metabolic Jzt523 ALBUMIN 4.3 g/dL 03/27/2017 Comp Metabolic Crx173 TPRO 7.3 g/dL 03/27/2017 Comp Metabolic Oim815 GLOB 3.0 g/dL 03/27/2017 Comp Metabolic Puk004 A/G Ratio 1.4 Ratio 03/27/2017 Comp Metabolic Qfi281 Osmo 285 mOsmo 03/27/2017 Magnesium Ord90 Mag 2.4 mg/dL 02/27/2017 Comp Metabolic Jzo466 NA 138 mEq/L 02/27/2017 Comp Metabolic Gts769 K 4.2 mEq/L 02/27/2017 Comp Metabolic Mqw670 CL 91 mEq/L 02/27/2017 Comp Metabolic Lje076 CO2 36.0 mEq/L 02/27/2017 Comp Metabolic Oaf824 ANION GAP 15 02/27/2017 Comp Metabolic Aht045 GLUCOSE 297 mg/dL 02/27/2017 Comp Metabolic Uzy163 Creat 0.9 mg/dL 02/27/2017 Comp Metabolic Aqd304 eGFR 71 ml/min/1.73m2 02/27/2017 Comp Metabolic Sfl288 BUN 12 mg/dL 02/27/2017 Comp Metabolic Jky917 B/C Ratio 14.1 Ratio 02/27/2017 Comp Metabolic Tnw284 CALCIUM 9.0 mg/dL 02/27/2017 Comp Metabolic Jbz138 ALK PHOS 146 U/L 02/27/2017 Comp Metabolic Qvr027 AST(SGOT) 28 U/L 02/27/2017 Comp Metabolic Iai774 ALT(SGPT) 12 U/L 02/27/2017 Comp Metabolic Yzo801 BILI T 0.3 mg/dL 02/27/2017 Comp Metabolic Dps679 ALBUMIN 3.8 g/dL 02/27/2017 Comp Metabolic Okj521 TPRO 6.6 g/dL 02/27/2017 Comp Metabolic Lpe552 GLOB 2.8 g/dL 02/27/2017 Comp Metabolic Hmh072 A/G Ratio 1.3 Ratio 02/27/2017 Comp Metabolic Thq290 Osmo 286 mOsmo 02/27/2017 Digoxin Ord9 DIGOXIN <0.2 NG/ML 02/14/2017 Comp Metabolic Bjl144 NA 138 mEq/L 02/14/2017 Comp Metabolic Zsu206 K 3.5 mEq/L 02/14/2017 Comp Metabolic Khr945 CL 95 mEq/L 02/14/2017 Comp Metabolic Bdc061 CO2 29.0 mEq/L 02/14/2017 Comp Metabolic Gcr922 ANION GAP 18 02/14/2017 Comp Metabolic Gbh169 GLUCOSE 254 mg/dL 02/14/2017 Comp Metabolic Djo329 Creat 1.0 mg/dL 02/14/2017 Comp Metabolic Ctx756 eGFR 62 ml/min/1.73m2 02/14/2017 Comp Metabolic Xng743 BUN 14 mg/dL 02/14/2017 Comp Metabolic Gjq070 B/C Ratio 14.6 Ratio 02/14/2017 Comp Metabolic Iwg259 CALCIUM 8.6 mg/dL 02/14/2017 Comp Metabolic Lcj873 ALK PHOS 155 U/L 02/14/2017 Comp Metabolic Rht684 AST(SGOT) 42 U/L 02/14/2017 Comp Metabolic Fli989 ALT(SGPT) 28 U/L 02/14/2017 Comp Metabolic Mjo605 BILI T 0.3 mg/dL 02/14/2017 Comp Metabolic Dpz807 ALBUMIN 3.6 g/dL 02/14/2017 Comp Metabolic Hwg274 TPRO 6.2 g/dL 02/14/2017 Comp Metabolic Jlc004 GLOB 2.6 g/dL 02/14/2017 Comp Metabolic Lhm692 A/G Ratio 1.4 Ratio 02/14/2017 Comp Metabolic Uho269 Osmo 285 mOsmo 02/14/2017 Vitamin D 25 Oh Lqp0260 VITAMIN D, 25 HYDROXY 8.99 ng/mL Tsh [...] 28.0 pg 01/16/2017 Cbc With Differential Ord2 [place]% 7.3 % 01/16/2017 Cbc With Differential Ord2 [...] 1.42 K/ul 01/16/2017 Cbc With Differential Ord2 [place] ABS# 0.6 K/ul 01/16/2017 Cbc With Differential Ord2 Eos ABS# 0.1 K/ul 01/16/2017 Cbc With Differential Ord2 Baso ABS# 0.0 K/ul 01/16/2017 Sed Rate Ord21 ESR 33 mm/hr 01/16/2017 C-Reactive Protein Qnt Crqnt CRP 3.3 mg/dl 01/16/2017 Free T4 Rot566 FREE T4 0.81 ng/dL 01/16/2017 %Hba1C Htv583 % HbA1c 95863-6 12.4 % 01/16/2017 %Hba1C Jut388 Gluc Ave 309 mg/dL 01/16/2017 Comp Metabolic Qdo033 NA 134 mEq/L 01/16/2017 Comp Metabolic Kkk707 K 4.0 mEq/L 01/16/2017 Comp Metabolic Kcq228 CL 89 mEq/L 01/16/2017 Comp Metabolic Zer522 CO2 30.0 mEq/L 01/16/2017 Comp Metabolic Yyg805 ANION GAP 19 01/16/2017 Comp Metabolic Ica867 GLUCOSE 496 Result Verified By Repeat Analysis mg/dL 01/16/2017 Comp Metabolic Lmx238 Creat 0.8 mg/dL 01/16/2017 Comp Metabolic Zfo791 eGFR 73 ml/min/1.73m2 01/16/2017 Comp Metabolic Hra514 BUN 13 mg/dL 01/16/2017 Comp Metabolic Nfh232 B/C Ratio 15.7 Ratio 01/16/2017 Comp Metabolic Sow557 CALCIUM 8.8 mg/dL 01/16/2017 Comp Metabolic Azu321 ALK PHOS 171 U/L 01/16/2017 Comp Metabolic Hak562 AST(SGOT) 54 U/L 01/16/2017 Comp Metabolic Xux032 ALT(SGPT) 32 U/L 01/16/2017 Comp Metabolic Mqy732 BILI T 0.3 mg/dL 01/16/2017 Comp Metabolic Zpe289 ALBUMIN 3.9 g/dL 01/16/2017 Comp Metabolic Xvq083 TPRO 6.5 g/dL 01/16/2017 Comp Metabolic Pqi141 GLOB 2.6 g/dL 01/16/2017 Comp Metabolic Nsg234 A/G Ratio 1.5 Ratio 01/16/2017 Comp Metabolic Yeu877 Osmo 290 mOsmo 01/16/2017 Comp Metabolic Qtq751 NA 135 mEq/L 09/14/2016 Comp Metabolic Ncb528 K 5.2 mEq/L 09/14/2016 Comp Metabolic Dlx355 CL 93 mEq/L 09/14/2016 Comp Metabolic Yti263 CO2 26.0 mEq/L 09/14/2016 Comp Metabolic Oqc803 ANION GAP 21 09/14/2016 Comp Metabolic Cqd025 GLUCOSE 326 mg/dL 09/14/2016 Comp Metabolic Aam748 Creat 1.0 mg/dL 09/14/2016 Comp Metabolic Fop220 eGFR 57 ml/min/1.73m2 09/14/2016 Comp Metabolic Kfe546 BUN 16 mg/dL 09/14/2016 Comp Metabolic Vfk590 B/C Ratio 15.5 Ratio 09/14/2016 Comp Metabolic Dpc482 CALCIUM 9.2 mg/dL 09/14/2016 Comp Metabolic Hkg037 ALK PHOS 160 U/L 09/14/2016 Comp Metabolic Qbk538 AST(SGOT) 49 U/L 09/14/2016 Comp Metabolic Shf565 ALT(SGPT) 32 U/L 09/14/2016 Comp Metabolic Out126 BILI T 0.4 mg/dL 09/14/2016 Comp Metabolic Zzc908 ALBUMIN 4.0 g/dL 09/14/2016 Comp Metabolic Mug751 TPRO 7.3 g/dL 09/14/2016 Comp Metabolic Uqt298 GLOB 3.3 g/dL 09/14/2016 Comp Metabolic Evl585 A/G Ratio 1.2 Ratio 09/14/2016 Comp Metabolic Fsr114 Osmo 284 mOsmo 09/14/2016 Cbc With Differential [...] 86.9 fl 09/14/2016 Cbc With Differential Ord2 [place]% 6.2 % 09/14/2016 Cbc With Differential Ord2 [...] 2.09 K/ul 09/14/2016 Cbc With Differential Ord2 [place] ABS# 0.7 K/ul 09/14/2016 Cbc With Differential Ord2 Eos ABS# 0.2 K/ul 09/14/2016 Cbc With Differential Ord2 Baso ABS# 0.3 K/ul 09/14/2016 %Hba1C Lft568 % HbA1c 63168-7 10.7 % 09/14/2016 %Hba1C Cmb924 Gluc Ave 260 mg/dL 09/14/2016 Manual Differential Ord52 D-Neutr 62 % 09/14/2016 Manual Differential Ord52 D-[place] 1 % 09/14/2016 Manual Differential Ord52 D-Lymph 34 % 09/14/2016 Manual Differential Ord52 D-Eos 2 % 09/14/2016 Manual Differential Ord52 D-[place] 1 % 09/14/2016 Comp Metabolic Zxx531 NA 134 mEq/L 08/10/2016 Comp Metabolic Msa715 K 5.0 mEq/L 08/10/2016 Comp Metabolic Ugc970 CL 91 mEq/L 08/10/2016 Comp Metabolic Avw490 CO2 29.0 mEq/L 08/10/2016 Comp Metabolic Qfg856 ANION GAP 19 08/10/2016 Comp Metabolic Dfs238 GLUCOSE 291 mg/dL 08/10/2016 Comp Metabolic Smy856 Creat 0.9 mg/dL 08/10/2016 Comp Metabolic Ygg088 eGFR 68 ml/min/1.73m2 08/10/2016 Comp Metabolic Efo836 BUN 20 mg/dL 08/10/2016 Comp Metabolic Tqt982 B/C Ratio 22.7 Ratio 08/10/2016 Comp Metabolic Prd721 CALCIUM 9.7 mg/dL 08/10/2016 Comp Metabolic Mjp713 ALK PHOS 144 U/L 08/10/2016 Comp Metabolic Odk673 AST(SGOT) 62 U/L 08/10/2016 Comp Metabolic Vce368 ALT(SGPT) 37 U/L 08/10/2016 Comp Metabolic Fsk531 BILI T 0.3 mg/dL 08/10/2016 Comp Metabolic Llm899 ALBUMIN 4.3 g/dL 08/10/2016 Comp Metabolic Dto402 TPRO 7.3 g/dL 08/10/2016 Comp Metabolic Uqh018 GLOB 3.0 g/dL 08/10/2016 Comp Metabolic Yju992 A/G Ratio 1.5 Ratio 08/10/2016 Comp Metabolic Fsu862 Osmo 282 mOsmo 08/10/2016 Free T4 Ygx324 FREE T4 0.89 ng/dL 08/09/2016 Tsh Ord6 [...] 27.1 pg 08/09/2016 Cbc With Differential Ord2 [place]% 5.4 % 08/09/2016 Cbc With Differential Ord2 [...] 2.46 K/ul 08/09/2016 Cbc With Differential Ord2 [place] ABS# 0.8 K/ul 08/09/2016 Cbc With Differential [...] 26.3 % 04/20/2016 Cbc With Differential Ord2 [place]% 6.3 % 04/20/2016 Cbc With Differential Ord2 [...] 2.63 K/ul 04/20/2016 Cbc With Differential Ord2 [place] ABS# 0.6 K/ul 04/20/2016 Cbc With Differential Ord2 Eos ABS# 0.2 K/ul 04/20/2016 Cbc With Differential Ord2 Baso ABS# 0.0 K/ul 04/20/2016 Comp Metabolic Ciz114 NA 133 mEq/L 04/11/2016 Comp Metabolic Ryz402 K 4.1 mEq/L 04/11/2016 Comp Metabolic Arh067 CL 92 mEq/L 04/11/2016 Comp Metabolic Cfz495 CO2 30.0 mEq/L 04/11/2016 Comp Metabolic Mkf027 ANION GAP 15 04/11/2016 Comp Metabolic Rgx102 GLUCOSE 414 mg/dL 04/11/2016 Comp Metabolic Fbr642 Creat 0.9 mg/dL 04/11/2016 Comp Metabolic Joq250 eGFR 65 ml/min/1.73m2 04/11/2016 Comp Metabolic Mbs960 BUN 22 mg/dL 04/11/2016 Comp Metabolic Kqr377 B/C Ratio 23.9 Ratio 04/11/2016 Comp Metabolic Jjq268 CALCIUM 9.2 mg/dL 04/11/2016 Comp Metabolic Tvv752 ALK PHOS 145 U/L 04/11/2016 Comp Metabolic Eac445 AST(SGOT) 22 U/L 04/11/2016 Comp Metabolic Dqt158 ALT(SGPT) 21 U/L 04/11/2016 Comp Metabolic Wgt195 BILI T 0.3 mg/dL 04/11/2016 Comp Metabolic Jcv588 ALBUMIN 3.9 g/dL 04/11/2016 Comp Metabolic Hac845 TPRO 6.8 g/dL 04/11/2016 Comp Metabolic Hdq119 GLOB 3.0 g/dL 04/11/2016 Comp Metabolic Szr187 A/G Ratio 1.3 Ratio 04/11/2016 Comp Metabolic Wie835 Osmo 287 mOsmo 04/11/2016 Cbc With Differential [...] 27.6 pg 04/11/2016 Cbc With Differential Ord2 [place]% 6.9 % 04/11/2016 Cbc With Differential Ord2 [...] 2.09 K/ul 04/11/2016 Cbc With Differential Ord2 [place] ABS# 0.7 K/ul 04/11/2016 Cbc With Differential Ord2 Eos ABS# 0.2 K/ul 04/11/2016 Cbc With Differential Ord2 Baso ABS# 0.0 K/ul 04/11/2016 Comp Metabolic Vvk438 NA 136 mEq/L 02/26/2016 Comp Metabolic Kqu470 K 3.9 mEq/L 02/26/2016 Comp Metabolic Ozx282 CL 95 mEq/L 02/26/2016 Comp Metabolic Bds131 CO2 29.0 mEq/L 02/26/2016 Comp Metabolic Vxj039 ANION GAP 16 02/26/2016 Comp Metabolic Ssq641 GLUCOSE 277 mg/dL 02/26/2016 Comp Metabolic Bmy452 Creat 0.7 mg/dL 02/26/2016 Comp Metabolic Pxd934 eGFR 88 ml/min/1.73m2 02/26/2016 Comp Metabolic Noa294 BUN 11 mg/dL 02/26/2016 Comp Metabolic Yko531 B/C Ratio 15.5 Ratio 02/26/2016 Comp Metabolic Jzk586 CALCIUM 8.8 mg/dL 02/26/2016 Comp Metabolic Sbn816 ALK PHOS 119 U/L 02/26/2016 Comp Metabolic Ypk192 AST(SGOT) 25 U/L 02/26/2016 Comp Metabolic Ahw047 ALT(SGPT) 20 U/L 02/26/2016 Comp Metabolic Sdl370 BILI T 0.3 mg/dL 02/26/2016 Comp Metabolic Oht029 ALBUMIN 3.8 g/dL 02/26/2016 Comp Metabolic Cfc870 TPRO 6.6 g/dL 02/26/2016 Comp Metabolic Gka744 GLOB 2.8 g/dL 02/26/2016 Comp Metabolic Fpf575 A/G Ratio 1.3 Ratio 02/26/2016 Comp Metabolic Fuc635 Osmo 281 mOsmo 02/26/2016 Cbc With Differential [...] 29.6 pg 02/26/2016 Cbc With Differential Ord2 [place]% 6.4 % 02/26/2016 Cbc With Differential Ord2 [...] 2.78 K/ul 02/26/2016 Cbc With Differential Ord2 [place] ABS# 0.8 K/ul 02/26/2016 Cbc With Differential Ord2 Eos ABS# 0.2 K/ul 02/26/2016 Cbc With Differential Ord2 Baso ABS# 0.1 K/ul 02/26/2016 %Hba1C Esb823 % HbA1c 85504-8 9.6 % 02/26/2016 %Hba1C Kpw993 Gluc Ave 229 mg/dL 02/26/2016 Comp Metabolic Wsy473 NA 138 mEq/L 11/10/2015 Comp Metabolic Iav784 K 4.5 mEq/L 11/10/2015 Comp Metabolic Sbj944 CL 99 mEq/L 11/10/2015 Comp Metabolic Zhn134 CO2 34.0 mEq/L 11/10/2015 Comp Metabolic Xoo483 ANION GAP 10 11/10/2015 Comp Metabolic Pie970 GLUCOSE 167 mg/dL 11/10/2015 Comp Metabolic Dsf190 Creat 0.8 mg/dL 11/10/2015 Comp Metabolic Gji528 eGFR 78 ml/min/1.73m2 11/10/2015 Comp Metabolic Ric876 BUN 22 mg/dL 11/10/2015 Comp Metabolic Ozy310 B/C Ratio 27.8 Ratio 11/10/2015 Comp Metabolic Jhq806 CALCIUM 8.5 mg/dL 11/10/2015 Comp Metabolic Jzj220 ALK PHOS 130 U/L 11/10/2015 Comp Metabolic Nxm180 AST(SGOT) 56 U/L 11/10/2015 Comp Metabolic Vxo320 ALT(SGPT) 51 U/L 11/10/2015 Comp Metabolic Qhl595 BILI T 0.5 mg/dL 11/10/2015 Comp Metabolic Eya671 ALBUMIN 3.5 g/dL 11/10/2015 Comp Metabolic Sku527 TPRO 5.8 g/dL 11/10/2015 Comp Metabolic Afo139 GLOB 2.3 g/dL 11/10/2015 Comp Metabolic Ilr935 A/G Ratio 1.5 Ratio 11/10/2015 Comp Metabolic Dem664 Osmo 283 mOsmo 11/10/2015 Cbc With Differential [...] 93.1 fl 11/10/2015 Cbc With Differential Ord2 [place]% 7.7 % 11/10/2015 Cbc With Differential Ord2 [...] 1.92 K/ul 11/10/2015 Cbc With Differential Ord2 [place] ABS# 0.9 K/ul 11/10/2015 Cbc With Differential [...] 28.6 pg 08/11/2015 Cbc With Differential Ord2 [place]% 8.1 % 08/11/2015 Cbc With Differential Ord2 [...] 2.93 K/ul 08/11/2015 Cbc With Differential Ord2 [place] ABS# 0.9 K/ul 08/11/2015 Cbc With Differential Ord2 Eos ABS# 0.1 K/ul 08/11/2015 Cbc With Differential Ord2 Baso ABS# 0.0 K/ul 08/11/2015 Cbc With Differential Ord2 New Analyzer Notice Please note new ref ranges starting 06-03-2015 due to implemntation of new five part differential hematolgy analyzer. 08/11/2015 Comp Metabolic Zfd165 NA 142 mEq/L 08/11/2015 Comp Metabolic Ebf590 K 3.6 mEq/L 08/11/2015 Comp Metabolic Wmb852 CL 98 mEq/L 08/11/2015 Comp Metabolic Ekr988 CO2 33.0 mEq/L 08/11/2015 Comp Metabolic Wlv561 ANION GAP 15 08/11/2015 Comp Metabolic Hae984 GLUCOSE 100 mg/dL 08/11/2015 Comp Metabolic Nvh229 Creat 0.9 mg/dL 08/11/2015 Comp Metabolic Urv870 eGFR 65 ml/min/1.73m2 08/11/2015 Comp Metabolic Cck998 BUN 15 mg/dL 08/11/2015 Comp Metabolic Dbs207 B/C Ratio 16.3 Ratio 08/11/2015 Comp Metabolic Jpd021 CALCIUM 8.8 mg/dL 08/11/2015 Comp Metabolic Kig062 ALK PHOS 171 U/L 08/11/2015 Comp Metabolic Fai679 AST(SGOT) 76 U/L 08/11/2015 Comp Metabolic Npt969 ALT(SGPT) 64 U/L 08/11/2015 Comp Metabolic Lvj109 BILI T 0.4 mg/dL 08/11/2015 Comp Metabolic Jug052 ALBUMIN 4.2 g/dL 08/11/2015 Comp Metabolic Uyj806 TPRO 6.7 g/dL 08/11/2015 Comp Metabolic Fnd375 GLOB 2.6 g/dL 08/11/2015 Comp Metabolic Mpq283 A/G Ratio 1.6 Ratio 08/11/2015 Comp Metabolic Ieh140 Osmo 284 mOsmo 08/11/2015 %Hba1C Giy581 % HbA1c 96932-6 6.7 % 08/11/2015 %Hba1C Fnc718 Gluc Ave 146 mg/dL 08/11/2015 Free T4 Bfp613 FREE T4 1.07 ng/dL 08/11/2015 Culture Urine [id number] URINE CULTURE SEE NOTES 07/23/2015 Culture Urine [id number] Continued Results 07/23/2015 Urine Culture Ucult Complete Growth of aerobe sent to ref lab 07/21/2015 Free T4 Jfu416 FREE T4 0.76 ng/dL 04/15/2015 Tsh Ord6 hTSH II 1.99 uIU/mL 04/15/2015 %Hba1C Qch394 % HbA1c 73449-6 6.7 % 04/14/2015 %Hba1C Vly816 Gluc Ave 146 mg/dL 04/14/2015 Comp Metabolic Onw691 NA 140 mEq/L 04/14/2015 Comp Metabolic Phg827 K 4.4 mEq/L 04/14/2015 Comp Metabolic Sim231 CL 99 mEq/L 04/14/2015 Comp Metabolic Msj383 CO2 29.0 mEq/L 04/14/2015 Comp Metabolic Nyg328 ANION GAP 16 04/14/2015 Comp Metabolic Pag476 GLUCOSE 100 mg/dL 04/14/2015 Comp Metabolic Wgj381 Creat 0.7 mg/dL 04/14/2015 Comp Metabolic Thh761 eGFR 91 ml/min/1.73m2 04/14/2015 Comp Metabolic Nyp405 BUN 13 mg/dL 04/14/2015 Comp Metabolic Ojm288 B/C Ratio 18.8 Ratio 04/14/2015 Comp Metabolic Saq200 CALCIUM 9.1 mg/dL 04/14/2015 Comp Metabolic Tpf104 ALK PHOS 138 U/L 04/14/2015 Comp Metabolic Ccd482 AST(SGOT) 22 U/L 04/14/2015 Comp Metabolic Kuq711 ALT(SGPT) 22 U/L 04/14/2015 Comp Metabolic Ioz960 BILI T 0.3 mg/dL 04/14/2015 Comp Metabolic Oew006 ALBUMIN 4.0 g/dL 04/14/2015 Comp Metabolic Ufv233 TPRO 6.5 g/dL 04/14/2015 Comp Metabolic Cby122 GLOB 2.5 g/dL 04/14/2015 Comp Metabolic Qec380 A/G Ratio 1.6 Ratio 04/14/2015 Comp Metabolic Htm529 Osmo 280 mOsmo 04/14/2015 Cbc With Differential [...] Ord2 RDW 16.5 % 04/14/2015 CHEM 14 2798985 AST 15 U/L 09/11/2013 CHEM 14 7513194 ALT 25 IU/L 09/11/2013 CHEM 14 9266577 BUN 29 MG/DL 09/11/2013 CHEM 14 4107031 ALBUMIN 3.8 GM/DL 09/11/2013 CHEM 14 7078176 CHLORIDE 99 MMOL/L 09/11/2013 CHEM 14 9640694 BILI TOT 0.2 MG/DL 09/11/2013 CHEM 14 8820442 ALK PHOS 118 U/L 09/11/2013 CHEM 14 3140719 SODIUM 136 MMOL/L 09/11/2013 CHEM 14 4194999 CREATININE 1.26 MG/DL 09/11/2013 CHEM 14 2576150 CALCIUM 9.0 MG/DL 09/11/2013 CHEM 14 1846124 POTASSIUM 5.0 MMOL/L 09/11/2013 CHEM 14 6992124 PROT TOT 6.2 GM/DL 09/11/2013 CHEM 14 7736208 GLUCOSE 254 MG/DL 09/11/2013 CHEM 14 1221163 BICARB 29 MMOL/L 09/11/2013 CHEM 14 4652455 ANION GAP 8 MEQ/L 09/11/2013 GFR CALC 2561218 GFR AA 52.0L ML/MIN 09/11/2013 GFR CALC 1612891 GFR NON-AA 43.0L ML/MIN 09/11/2013 FREE T4 [id number] FREE T4 1.35 NG/DL 08/02/2013 CBC 0225474 WBC 7.5 10e9/L 08/01/2013 CBC 3890261 RBC 3.88 10e12/L 08/01/2013 CBC 4974558 HGB 12.1 g/dL 08/01/2013 CBC 2248690 HCT DET 37.6 % 08/01/2013 CBC 0378013 MCV 96.9 fL 08/01/2013 CBC 5239835 MCH 31.2 pg 08/01/2013 CBC 7660293 MCHC 32.2 g/dL 08/01/2013 CBC 0751136 PLT 289 10e9/L 08/01/2013 CBC 0894476 MPV 9.6 fL 08/01/2013 CBC 5728058 JOSEFINA % 56.0 % 08/01/2013 CBC 6938825 LY % 31.6 % 08/01/2013 CBC 0374888 MON % 10.0 % 08/01/2013 CBC 1411191 EOS % 1.7 % 08/01/2013 CBC 7861490 BASO % 0.7 % 08/01/2013 CBC 7444498 RDW 15.5 % 08/01/2013 CBC 2565071 ABS JOSEFINA 4.20 10e9/L 08/01/2013 CBC 8438958 ABS LYMPH 2.37 10e9/L 08/01/2013 CBC 0748050 ABS MONO 0.75 10e9/L 08/01/2013 CBC 9894972 ABS EOS 0.13 10e9/L 08/01/2013 CBC 4714458 ABS BASO 0.05 10e9/L 08/01/2013 CBC 8503982 RDW-SD 53.5 fL 08/01/2013 TSH 9560812 TSH 6.497 uIU/ML 08/01/2013 CHEM 14 7054393 AST 53 U/L 08/01/2013 CHEM 14 0459620 ALT 36 IU/L 08/01/2013 CHEM 14 9281639 BUN 16 MG/DL 08/01/2013 CHEM 14 5562146 ALBUMIN 4.2 GM/DL 08/01/2013 CHEM 14 9071985 CHLORIDE 103 MMOL/L 08/01/2013 CHEM 14 4811207 BILI TOT 0.4 MG/DL 08/01/2013 CHEM 14 6633025 ALK PHOS 113 U/L 08/01/2013 CHEM 14 8422638 SODIUM 139 MMOL/L 08/01/2013 CHEM 14 5400252 CREATININE 0.83 MG/DL 08/01/2013 CHEM 14 1727582 CALCIUM 9.5 MG/DL 08/01/2013 CHEM 14 8268171 POTASSIUM 4.2 MMOL/L 08/01/2013 CHEM 14 7970460 PROT TOT 6.4 GM/DL 08/01/2013 CHEM 14 3185192 GLUCOSE 135 MG/DL 08/01/2013 CHEM 14 1829647 BICARB 26 MMOL/L 08/01/2013 CHEM 14 2619479 ANION GAP 10 MEQ/L 08/01/2013 A1C HPLC 7010718 A1C HPLC 03114-0 8.1 % 08/01/2013 GFR CALC 6719223 GFR AA >60 ML/MIN 08/01/2013 GFR CALC 1010399 GFR NON-AA >60 ML/MIN 08/01/2013 CBC 7756149 WBC 10.4 10e9/L 03/21/2013 CBC 9811676 RBC 4.27 10e12/L 03/21/2013 CBC 0207958 HGB 13.1 g/dL 03/21/2013 CBC 1555106 HCT DET 41.2 % 03/21/2013 CBC 7935253 MCV 96.5 fL 03/21/2013 CBC 4708986 MCH 30.7 pg 03/21/2013 CBC 7091279 MCHC 31.8 g/dL 03/21/2013 CBC 9431553 PLT 398 10e9/L 03/21/2013 CBC 5576241 MPV 10.9 fL 03/21/2013 CBC 3370502 JOSEFINA % 65.4 % 03/21/2013 CBC 2633899 LY % 25.6 % 03/21/2013 CBC 8920659 MON % 6.7 % 03/21/2013 CBC 6864961 EOS % 1.9 % 03/21/2013 CBC 7200334 BASO % 0.4 % 03/21/2013 CBC 2655718 RDW 14.2 % 03/21/2013 CBC 0873433 ABS JOSEFINA 6.80 10e9/L 03/21/2013 CBC 8668579 ABS LYMPH 2.66 10e9/L 03/21/2013 CBC 9401328 ABS MONO 0.70 10e9/L 03/21/2013 CBC 1740748 ABS EOS 0.20 10e9/L 03/21/2013 CBC 0709196 ABS BASO 0.04 10e9/L 03/21/2013 CBC 7693901 RDW-SD 48.7 fL 03/21/2013 GFR CALC 9208950 GFR AA 57.0L ML/MIN 03/21/2013 GFR CALC 0656628 GFR NON-AA 47.0L ML/MIN 03/21/2013 CHEM 14 7461734 AST 22 U/L 03/21/2013 CHEM 14 8400377 ALT 22 IU/L 03/21/2013 CHEM 14 5521752 BUN 29 MG/DL 03/21/2013 CHEM 14 6451033 ALBUMIN 4.1 GM/DL 03/21/2013 CHEM 14 8600844 CHLORIDE 99 MMOL/L 03/21/2013 CHEM 14 9541412 BILI TOT 0.3 MG/DL 03/21/2013 CHEM 14 3179510 ALK PHOS 123 U/L 03/21/2013 CHEM 14 5677559 SODIUM 137 MMOL/L 03/21/2013 CHEM 14 3216326 CREATININE 1.16 MG/DL 03/21/2013 CHEM 14 4928159 CALCIUM 9.1 MG/DL 03/21/2013 CHEM 14 4914972 POTASSIUM 4.1 MMOL/L 03/21/2013 CHEM 14 2830055 PROT TOT 6.7 GM/DL 03/21/2013 CHEM 14 8756517 GLUCOSE 209 MG/DL 03/21/2013 CHEM 14 0106664 BICARB 26 MMOL/L 03/21/2013 CHEM 14 6393703 ANION GAP 12 MEQ/L 03/21/2013 A1C HPLC 4848482 A1C HPLC 21729-9 6.6 % 03/21/2013 GFR CALC 2170024 GFR AA >60 ML/MIN 01/17/2013 GFR CALC 2441713 GFR NON-AA 51.0L ML/MIN 01/17/2013 CHEM 14 1458894 AST 18 U/L 01/17/2013 CHEM 14 1982244 ALT 32 IU/L 01/17/2013 CHEM 14 0554864 BUN 22 MG/DL 01/17/2013 CHEM 14 1909714 ALBUMIN 4.1 GM/DL 01/17/2013 CHEM 14 4608395 CHLORIDE 99 MMOL/L 01/17/2013 CHEM 14 4741362 BILI TOT 0.3 MG/DL 01/17/2013 CHEM 14 8711129 ALK PHOS 110 U/L 01/17/2013 CHEM 14 0793327 SODIUM 138 MMOL/L 01/17/2013 CHEM 14 0763396 CREATININE 1.09 MG/DL 01/17/2013 CHEM 14 3992389 CALCIUM 8.8 MG/DL 01/17/2013 CHEM 14 4411769 POTASSIUM 3.5 MMOL/L 01/17/2013 CHEM 14 5833511 PROT TOT 6.1 GM/DL 01/17/2013 CHEM 14 8194857 GLUCOSE 163 MG/DL 01/17/2013 CHEM 14 0444477 BICARB 29 MMOL/L 01/17/2013 CHEM 14 5276131 ANION GAP 10 MEQ/L 01/17/2013 CBC 3437825 WBC 8.0 10e9/L 01/17/2013 CBC 0668168 RBC 3.85 10e12/L 01/17/2013 CBC 7335128 HGB 12.6 g/dL 01/17/2013 CBC 1141554 HCT DET 38.0 % 01/17/2013 CBC 0314000 MCV 98.7 fL 01/17/2013 CBC 5640069 MCH 32.7 pg 01/17/2013 CBC 3371873 MCHC 33.2 g/dL 01/17/2013 CBC 2299751 PLT 325 10e9/L 01/17/2013 CBC 0643866 MPV 10.4 fL 01/17/2013 CBC 8927134 JOSE[place] % 64.6 % 01/17/2013 CBC 6673170 LY % 27.0 % 01/17/2013 CBC 6111022 MON % 6.8 % 01/17/2013 CBC 5725943 EOS % 1.4 % 01/17/2013 CBC 0692801 BASO % 0.2 % 01/17/2013 CBC 2935142 RDW 15.5 % 01/17/2013 CBC 7256831 ABS JOSEFINA 5.17 10e9/L 01/17/2013 CBC 4053166 ABS LYMPH 2.16 10e9/L 01/17/2013 CBC 2876953 ABS MONO 0.54 10e9/L 01/17/2013 CBC 1599912 ABS EOS 0.11 10e9/L 01/17/2013 CBC 4134597 ABS BASO 0.02 10e9/L 01/17/2013 CBC 0021773 RDW-SD 54.3 fL 01/17/2013 TSH 5558707 TSH 3.683 uIU/ML 12/31/2012 FREE T4 8017575 FREE T4 1.34 NG/DL 12/31/2012 A1C HPLC 5715812 A1C HPLC 75501-7 6.6 % 12/21/2012 CHEM 14 8546719 AST 16 U/L 12/20/2012 CHEM 14 5993675 ALT 36 IU/L 12/20/2012 CHEM 14 9094774 BUN 26 MG/DL 12/20/2012 CHEM 14 1900633 ALBUMIN 4.2 GM/DL 12/20/2012 CHEM 14 6914510 CHLORIDE 103 MMOL/L 12/20/2012 CHEM 14 5936151 BILI TOT 0.4 MG/DL 12/20/2012 CHEM 14 2189314 ALK PHOS 107 U/L 12/20/2012 CHEM 14 6494409 SODIUM 141 MMOL/L 12/20/2012 CHEM 14 3951946 CREATININE 0.73 MG/DL 12/20/2012 CHEM 14 3065197 CALCIUM 9.2 MG/DL 12/20/2012 CHEM 14 5425376 POTASSIUM 4.3 MMOL/L 12/20/2012 CHEM 14 2946170 PROT TOT 6.2 GM/DL 12/20/2012 CHEM 14 0263766 GLUCOSE 135 MG/DL 12/20/2012 CHEM 14 0159632 BICARB 32 MMOL/L 12/20/2012 CHEM 14 1706685 ANION GAP 6 MEQ/L 12/20/2012 GFR CALC 4068661 GFR AA >60 ML/MIN 12/20/2012 GFR CALC 3984203 GFR NON-AA >60 ML/MIN 12/20/2012 CBC 6957062 WBC 8.4 10e9/L 12/20/2012 CBC 5984307 RBC 4.30 10e12/L 12/20/2012 CBC 7148994 HGB 13.9 g/dL 12/20/2012 CBC 5767423 HCT DET 41.8 % 12/20/2012 CBC 7385579 MCV 97.2 fL 12/20/2012 CBC 1064335 MCH 32.3 pg 12/20/2012 CBC 6507236 MCHC 33.3 g/dL 12/20/2012 CBC 3910590 PLT 358 10e9/L 12/20/2012 CBC 3542134 MPV 10.2 fL 12/20/2012 CBC 0373699 JOSEFINA % 63.3 % 12/20/2012 CBC 8203208 LY % 28.9 % 12/20/2012 CBC 9303703 MON % 6.3 % 12/20/2012 CBC 7473570 EOS % 1.1 % 12/20/2012 CBC 0708482 BASO % 0.4 % 12/20/2012 CBC 0221415 RDW 15.3 % 12/20/2012 CBC 8226154 ABS JOSEFINA 5.32 10e9/L 12/20/2012 CBC 3930208 ABS LYMPH 2.43 10e9/L 12/20/2012 CBC 2505919 ABS MONO 0.53 10e9/L 12/20/2012 CBC 2931570 ABS EOS 0.09 10e9/L 12/20/2012 CBC 4641716 ABS BASO 0.03 10e9/L 12/20/2012 CBC 4188147 RDW-SD 51.9 fL 12/20/2012 GFR CALC 4412309 GFR AA >60 ML/MIN 02/01/2012 GFR CALC 8067239 GFR NON-AA >60 ML/MIN 02/01/2012 CBC 0343253 WBC 10.8 10e9/L 02/01/2012 CBC 1711843 RBC 3.86 10e12/L 02/01/2012 CBC 5398684 HGB 11.8 g/dL 02/01/2012 CBC 0161303 HCT DET 36.3 % 02/01/2012 CBC 1946707 MCV 94.0 fL 02/01/2012 CBC 4487713 MCH 30.6 pg 02/01/2012 CBC 4755843 MCHC 32.5 g/dL 02/01/2012 CBC 0146678 PLT 321 10e9/L 02/01/2012 CBC 0583596 MPV 10.3 fL 02/01/2012 CBC 2506784 JOSEFINA % 75.9 % 02/01/2012 CBC 2154704 LY % 16.1 % 02/01/2012 CBC 7681481 MON % 6.8 % 02/01/2012 CBC 6870164 EOS % 1.0 % 02/01/2012 CBC 2912860 BASO % 0.2 % 02/01/2012 CBC 4919549 RDW 14.2 % 02/01/2012 CBC 8554804 ABS JOSEFINA 8.20 10e9/L 02/01/2012 CBC 5557211 ABS LYMPH 1.74 10e9/L 02/01/2012 CBC 6601419 ABS MONO 0.73 10e9/L 02/01/2012 CBC 1879200 ABS EOS 0.11 10e9/L 02/01/2012 CBC 9343904 ABS BASO 0.02 10e9/L 02/01/2012 CBC 7458990 RDW-SD 47.2 fL 02/01/2012 BRAIN PEP 3207658 BRAIN PEP FOOTNOTE pg/mL 02/01/2012 CHEM 14 7899605 AST 26 U/L 02/01/2012 CHEM 14 5632608 ALT 36 IU/L 02/01/2012 CHEM 14 6491017 BUN 29 MG/DL 02/01/2012 CHEM 14 1706650 ALBUMIN 3.7 GM/DL 02/01/2012 CHEM 14 1862709 CHLORIDE 105 MMOL/L 02/01/2012 CHEM 14 4400555 BILI TOT 0.2 MG/DL 02/01/2012 CHEM 14 6831471 ALK PHOS 89 U/L 02/01/2012 CHEM 14 6116120 SODIUM 141 MMOL/L 02/01/2012 CHEM 14 8135079 CREATININE 0.76 MG/DL 02/01/2012 CHEM 14 5320452 CALCIUM 9.0 MG/DL 02/01/2012 CHEM 14 7736375 POTASSIUM 4.8 MMOL/L 02/01/2012 CHEM 14 2872209 PROT TOT 5.5 GM/DL 02/01/2012 CHEM 14 5749024 GLUCOSE 83 MG/DL 02/01/2012 CHEM 14 4259041 BICARB 31 MMOL/L 02/01/2012 CHEM 14 4511312 ANION GAP 5 MEQ/L 02/01/2012 GFR CALC 0947230 GFR AA >60 ML/MIN 11/30/2011 GFR CALC 9724393 GFR NON-AA >60 ML/MIN 11/30/2011 CHEM 14 7074427 AST 14 U/L 11/30/2011 CHEM 14 1883113 ALT 17 IU/L 11/30/2011 CHEM 14 1202518 BUN 12 MG/DL 11/30/2011 CHEM 14 3116471 ALBUMIN 4.3 GM/DL 11/30/2011 CHEM 14 1353771 CHLORIDE 104 MMOL/L 11/30/2011 CHEM 14 7384847 BILI TOT 0.3 MG/DL 11/30/2011 CHEM 14 7562111 ALK PHOS 83 U/L 11/30/2011 CHEM 14 4345760 SODIUM 143 MMOL/L 11/30/2011 CHEM 14 5040407 CREATININE 0.71 MG/DL 11/30/2011 CHEM 14 8580043 CALCIUM 9.7 MG/DL 11/30/2011 CHEM 14 7156618 POTASSIUM 4.4 MMOL/L 11/30/2011 CHEM 14 0805792 PROT TOT 6.3 GM/DL 11/30/2011 CHEM 14 3966305 GLUCOSE 107 MG/DL 11/30/2011 CHEM 14 7160714 BICARB 27 MMOL/L 11/30/2011 CHEM 14 1830194 ANION GAP 12 MEQ/L 11/30/2011 CBC 4297038 WBC 8.7 10e9/L 11/30/2011 CBC 5461837 RBC 4.40 10e12/L 11/30/2011 CBC 2166000 HGB 13.6 g/dL 11/30/2011 CBC 8743434 HCT DET 41.0 % 11/30/2011 CBC 3318792 MCV 93.2 fL 11/30/2011 CBC 0014742 MCH 30.9 pg 11/30/2011 CBC 8305084 MCHC 33.2 g/dL 11/30/2011 CBC 1586965 PLT 328 10e9/L 11/30/2011 CBC 1786932 MPV 10.7 fL 11/30/2011 CBC 1321123 JOSEFINA % 68.4 % 11/30/2011 CBC 5736911 LY % 22.4 % 11/30/2011 CBC 7808352 MON % 7.9 % 11/30/2011 CBC 1517279 EOS % 1.1 % 11/30/2011 CBC 9096309 BASO % 0.2 % 11/30/2011 CBC 4423340 RDW 13.5 % 11/30/2011 CBC 4966933 ABS JOSEFINA 5.95 10e9/L 11/30/2011 CBC 5047191 ABS LYMPH 1.95 10e9/L 11/30/2011 CBC 6596885 ABS MONO 0.69 10e9/L 11/30/2011 CBC 8269727 ABS EOS 0.10 10e9/L 11/30/2011 CBC 2560680 ABS BASO 0.02 10e9/L 11/30/2011 CBC 2562500 RDW-SD 45.0 fL 11/30/2011 URINALYSIS NONAUTO W/O SCOPE 47512 Specific [place] 1.030 DateTime(Free Text in Aprima) URINALYSIS NONAUTO W/O SCOPE 49422 PH 5 DateTime(Free Text in Aprima) URINALYSIS NONAUTO W/O SCOPE 03495 GLUCOSE neg DateTime( Free Text in Aprima) URINALYSIS NONAUTO W/O SCOPE 38784 Protein neg DateTime( Free Text in Aprima) URINALYSIS NONAUTO W/O SCOPE 05544 Blood neg DateTime(Free Text in Aprima) URINALYSIS NONAUTO W/O SCOPE 62544 Bilirubin neg DateTime(Free Text in Aprima) URINALYSIS NONAUTO W/O SCOPE 96415 Ketones neg DateTime( Free Text in Aprima) URINALYSIS NONAUTO W/O SCOPE 58466 Urobilinogen neg DateTime(Free Text in Aprima) URINALYSIS NONAUTO W/O SCOPE 48420 Nitrite neg DateTime( Free Text in Aprima) URINALYSIS NONAUTO W/O SCOPE 18470 Leukocytes neg DateTime(Free Text in Aprima) UA 43565 Specific [place] 1.010 DateTime(Free Text in Aprima ) UA 35774 PH 5 DateTime(Free Text in Aprima) UA 67791 GLUCOSE N DateTime(Free Text in Aprima) UA 45625 Protein N DateTime(Free Text in Aprima) UA 68873 Blood TRACE DateTime(Free Text in Aprima) UA 83959 Bilirubin N DateTime(Free Text in Aprima) UA 05801 Ketones N DateTime(Free Text in Aprima) UA 43813 Urobilinogen N DateTime(Free Text in Aprima) UA 36001 Nitrite N DateTime(Free Text in Aprima) UA 64365 Leukocytes N DateTime(Free Text in Aprima) URINALYSIS NONAUTO W/O SCOPE 04124 Specific [place] 1.010 DateTime(Free Text in Aprima) URINALYSIS NONAUTO W/O SCOPE 05378 PH 7.5 DateTime(Free Text in Aprima) URINALYSIS NONAUTO W/O SCOPE 59826 GLUCOSE DateTime( Free Text in Aprima) URINALYSIS NONAUTO W/O SCOPE 59305 Protein trace DateTime(Free Text in Aprima) URINALYSIS NONAUTO W/O SCOPE 66851 Blood DateTime(Free Text in Aprima) URINALYSIS NONAUTO W/O SCOPE 62676 Bilirubin DateTime( Free Text in Aprima) URINALYSIS NONAUTO W/O SCOPE 85388 Ketones DateTime( Free Text in Aprima) URINALYSIS NONAUTO W/O SCOPE 58954 Urobilinogen DateTime (Free Text in Aprima) URINALYSIS NONAUTO W/O SCOPE 52773 Nitrite DateTime( Free Text in Aprima) URINALYSIS NONAUTO W/O SCOPE 49938 Leukocytes DateTime( Free Text in Aprima) URINALYSIS NONAUTO W/O SCOPE 36023 Specific [place] 1.010 DateTime(Free Text in Aprima) URINALYSIS NONAUTO W/O SCOPE 20158 PH 6 DateTime(Free Text in Aprima) URINALYSIS NONAUTO W/O SCOPE 42776 GLUCOSE DateTime( Free Text in Aprima) URINALYSIS NONAUTO W/O SCOPE 37549 Protein DateTime( Free Text in Aprima) URINALYSIS NONAUTO W/O SCOPE 61397 Blood DateTime(Free Text in Aprima) URINALYSIS NONAUTO W/O SCOPE 88334 Bilirubin DateTime( Free Text in Aprima) URINALYSIS NONAUTO W/O SCOPE 79132 Ketones DateTime( Free Text in Aprima) URINALYSIS NONAUTO W/O SCOPE 61895 Urobilinogen DateTime (Free Text in Aprima) URINALYSIS NONAUTO W/O SCOPE 47885 Nitrite DateTime( Free Text in Aprima) URINALYSIS NONAUTO W/O SCOPE 20645 Leukocytes DateTime( Free Text in Aprima) UA 59748 Specific [place] 1.020 DateTime(Free Text in Aprima ) UA 74633 PH 6 DateTime(Free Text in Aprima) UA 71891 GLUCOSE neg DateTime(Free Text in Aprima) UA 89176 Protein neg DateTime(Free Text in Aprima) UA 33051 Blood neg DateTime(Free Text in Aprima) UA 74031 Bilirubin neg DateTime(Free Text in Aprima) UA 87832 Ketones neg DateTime(Free Text in Aprima) UA 24630 Urobilinogen neg DateTime(Free Text in Aprima) UA 07918 Nitrite neg DateTime(Free Text in Aprima) UA 96491 Leukocytes neg DateTime(Free Text in Aprima) BMI 99854-0 39.7 DateTime(Free Text in Aprima) Blood Pressure [...] accomodation 10/27/2017 None Full Exam - General 1995 Ears/Nose/Throat lips/teeth/gingiva Overall: benign lips 10/27/2017 None [...] occlusion 06/30/2014 None Full Exam - General 1995 Ears/Nose/Throat [...] appearance 01/27/2014 None Full Exam - General 1995 Ears/Nose/Throat external ear Overall: no masses 01/27/2014 [...] sounds 01/27/2014 tachycardia Full Exam - General 1995 Abdomen abdominal exam Contour: protuberant 01/27/2014 None [...] yes 01/27/2014 None Full Exam - General 1995 Psychiatric orientation/consciousness Level of consciousness: alert 01/27/2014 [...] appearance 05/07/2013 None Full Exam - General 1995 Ears/Nose/Throat external ear Overall: no masses 05/07/2013 [...] age 0812/20/2012 None Full Exam - General 1995 Eyes conjunctiva /eyelids Overall: conjunctiva clear 12/20/2012 None Full Exam - General 1995 Eyes [...] retractions 12/20/2012 None Full Exam - General 1995 Respiratory respiratory effort/rhythm Overall: normal rate 12/20/2012 [...] bilaterally 08/23/2012 None Full Exam - General 1995 Respiratory respiratory effort/rhythm Overall: no retractions 08/23/2012 None Full Exam - General 1995 Respiratory respiratory effort/rhythm Overall: normal rate 08/23/2012 [...] intact 08/23/2012 None Full Exam - General 1995 [...] benign 05/17/2012 None Full Exam - General 1995 Neurologic deep tendon reflexes Overall: deep tendon reflexes intact 05/17/2012 None Full Exam - General 1994 Neurologic cranial nerves Overall: crainial nerves 2 - 12 grossly intact 05/17/2012 None Full Exam - General 1995 Psychiatric orientation/consciousness Overall: oriented to person, place and time 05/17/2012 None Full Exam - General 1995 Psychiatric mood and affect Mood: depressed 05/17/2012 [...] accomodation 04/10/2012 None Full Exam - General 1995 Respiratory [...] clear 02/15/2012 None Full Exam - General 1995 Eyes pupils and irises Overall: pupils equal, round, reactive to light and accomodation 02/15/2012 None Full Exam - General 1994 Respiratory auscultation Overall: breath sounds clear bilaterally 02/15/2012 None Full Exam - General 1995 Respiratory respiratory effort/rhythm Overall: no retractions 02/15/2012 [...] cerumen 12/14/2011 None Full Exam - General 1995 Ears/Nose/Throat otoscopic exam Tympanic membrane: air- fluid level 12/14/2011 None Full Exam - General 1995 [...] intact 11/03/2011 None Full Exam - General 1995 Psychiatric mood and affect Mood: depressed 11/03/2011 [...] tenderness 06/20/2011 None Full Exam - General 1995 Abdomen [...] 1995 Ears/Nose/Throat oral cavity/pharynx/larynx Overall: no masses 06/20/2011 [...] Date GLUC MONITOR CONT PHYS I&R CPT-4: 95026 04/27/2018 URINALYSIS NONAUTO W/O SCOPE CPT-4: 09775 04/10/2018 GLUCOSE MONITORING CONT CPT-4: 23794 04/10/2018 OCCULT BLOOD FECES CPT -4: 71830 02/22/2018 URINALYSIS NONAUTO W/O SCOPE CPT-4: 03887 02/20/2018 URINALYSIS NONAUTO W/O SCOPE CPT-4: 33934 12/14/2017 URINALYSIS NONAUTO W/O SCOPE CPT-4: 71552 11/27/2017 PPPS, SUBSEQ VISIT CPT -4: G0439 10/27/2017 GLUCOSE MONITORING CONT CPT-4: 27499 09/27/2017 URINALYSIS NONAUTO W/O SCOPE CPT-4: 62950 06/30/2017 URINALYSIS NONAUTO W/O SCOPE CPT-4: 23311 11/25/2016 URINALYSIS NONAUTO W/O SCOPE CPT-4: 89347 10/21/2016 URINALYSIS NONAUTO W/O SCOPE CPT-4: 33872 06/24/2016 URINALYSIS NONAUTO W/O SCOPE CPT-4: 83462 04/11/2016 ADMIN PNEUMOCOCCAL VACCINE SNOMED CT: [id number] CPT-4: G0009 02/26/2016 PNEUMOCOCCAL VACC 13 ANURADHA IM Formatting Model/CDA Sections, Assigned to/Jada Velazquez SNOMED CT: 04543019 CPT-4: 19734[place] 02/26/2016 URINALYSIS NONAUTO W/O SCOPE CPT-4: 94519 02/10/2016 URINALYSIS NONAUTO W/O SCOPE CPT-4: 95615 11/27/2015 URINALYSIS NONAUTO W/O SCOPE CPT-4: 67324 11/02/2015 INITIAL PREVENTIVE EXAM CPT-4: G0402 09/29/2015 URINALYSIS NONAUTO W/O SCOPE CPT-4: 61744 07/20/2015 TRIAMCINOLONE ACET INJ NOS CPT-4: J3301 06/26/2015 URINALYSIS NONAUTO W/O SCOPE CPT-4: 36851 11/05/2014 URINALYSIS NONAUTO W/O SCOPE CPT-4: 31485 04/21/2014 CULTURE AEROBIC IDENTIFY CPT-4: 00172 12/12/2013 URINALYSIS NONAUTO W/O SCOPE CPT-4: 54991 11/18/2013 ROUTINE VENIPUNCTURE CPT-4: 01716 09/10/2013 ROUTINE VENIPUNCTURE CPT-4: 95099 08/01/2013 URINALYSIS NONAUTO W/O SCOPE CPT-4: 30037 06/28/2013 TRIAMCINOLONE ACET INJ NOS CPT-4: J3301 05/07/2013 DRAIN/INJECT JOINT/BURSA CPT-4: 53728 05/07/2013 ROUTINE VENIPUNCTURE CPT-4: 94207 03/21/2013 ROUTINE VENIPUNCTURE CPT-4: 56313 01/17/2013 URINALYSIS NONAUTO W/O SCOPE CPT-4: 01346 01/01/2013 ROUTINE VENIPUNCTURE CPT-4: [address]93 12/31/2012 ROUTINE VENIPUNCTURE CPT-4: 16583 12/20/2012 URINALYSIS NONAUTO W/O SCOPE CPT-4: 67574 11/05/2012 DRAIN/INJECT JOINT/BURSA CPT-4: 99320 09/21/2012 TRIAMCINOLONE ACET INJ NOS CPT-4: J3301 09/21/2012 URINALYSIS NONAUTO W/O SCOPE CPT-4: 95994 07/19/2012 TRIAMCINOLONE ACET INJ NOS CPT-4: J3301 07/06/2012 Pneumococcal Polysaccharide Vaccine, 23-Valent, Ad CPT-4: 72714 06/07/2012 IMMUNIZATION ADMIN CPT -4: 33599 06/07/2012 TRIAMCINOLONE ACET INJ NOS CPT-4: J3301 05/02/2012 ROUTINE VENIPUNCTURE CPT-4: 80524 02/01/2012 URINALYSIS NONAUTO W/O SCOPE CPT-4: 88365 02/01/2012 TRIAMCINOLONE ACET INJ NOS CPT-4: J3301 12/14/2011 INJ TRIGGER POINT 1/2 MUSCL CPT-4: 45096 12/14/2011 PROMETHAZINE HCL INJECTION CPT-4: J2550 11/30/2011 ROUTINE VENIPUNCTURE CPT-4: 14608 11/30/2011 TRIAMCINOLONE ACET INJ NOS CPT-4: J3301 08/01/2011 DRAIN/INJECT JOINT/BURSA CPT-4: 85363 08/01/2011 THER/PROPH/DIAG INJ SC/IM CPT-4: 17252 04/18/2011 TRIAMCINOLONE ACET INJ NOS CPT-4: J3301 04/18/2011 Vital Signs Date Vital 04/27/2018 Blood Pressure 1: 122/54 Code : 8480-6 BMI: 39.7 Code : 49063-3 Heart Rate 1 : 84 bpm Height: 5'2" SpO2: 92% 04/10/2018 Blood Pressure 1: 120/68 Code : 8480-6 BMI: 39.7 Code : 68947-4 Heart Rate 1 : 87 bpm Height: 5'2" SpO2: 99% Weight: 217 lbs 03/12/2018 Blood Pressure 1: 140/70 Code : 8480-6 BMI: 40.2 Code : 11898-5 Heart Rate 1 : 78 bpm Height: 5'2" SpO2: 98% Weight: 220 lbs 02/20/2018 Blood Pressure 1: 140/70 Code : 8480-6 BMI: 40.2 Code : 78889-0 Heart Rate 1 : 96 bpm Height: 5'2" SpO2: 93% Weight: 220 lbs 11/27/2017 Blood Pressure 1: 158/78 Code : 8480-6 BMI: 40.8 Code : 07163-4 Heart Rate 1 : 100 bpm Height: 5'2" SpO2: 95% Weight: 223 lbs 10/27/2017 Blood Pressure 1: 146/70 Code : 8480-6 BMI: 41.3 Code : 76363-5 Heart Rate 1 : 82 bpm Height: 5'2" SpO2: 99% Waist Measure (cm): 119 cm Weight: 226 lbs 09/15/2017 Blood Pressure 1: 136/66 Code : 8480-6 BMI: 41.5 Code : 97640-3 Heart Rate 1 : 94 bpm Height: 5'2" SpO2: 96% Weight: 227 lbs 08/18/2017 Blood Pressure 1: 120/68 Code : 8480-6 BMI: 41.5 Code : 77952-6 Heart Rate 1 : 87 bpm Height: 5'2" SpO2: 94% Weight: 227 lbs 08/03/2017 Blood Pressure 1: 132/72 Code : 8480-6 BMI: 41.5 Code : 81782-9 Heart Rate 1 : 93 bpm Height: 5'2" SpO2: 95% Weight: 227 lbs 07/27/2017 Blood Pressure 1: 128/84 Code : 8480-6 BMI: 41.5 Code : 39538-2 Heart Rate 1 : 91 bpm Height: 5'2" SpO2: 98% Weight: 227 lbs 06/13/2017 Blood Pressure 1: 136/84 Code : 8480-6 BMI: 42.6 Code : 07090-4 Heart Rate 1 : 91 bpm Height: 5'2" SpO2: 94% Weight: 233 lbs 04/21/2017 Blood Pressure 1: 142/84 Code : 8480-6 BMI: 42.8 Code : 80435-3 Heart Rate 1 : 89 bpm Height: 5'2" SpO2: 94% Weight: 234 lbs 04/18/2017 Blood Pressure 1: 140/86 Code : 8480-6 BMI: 42.8 Code : 42609-8 Heart Rate 1 : 89 bpm Height: 5'2" SpO2: 97% Weight: 234 lbs 03/27/2017 Blood Pressure 1: 148/76 Code : 8480-6 BMI: 42.6 Code : 23951-6 Heart Rate 1 : 92 bpm Height: [...] Code : 8480-6 BMI: 44.3 Code : 05282-1 Heart Rate 1 : 90 bpm Height: 5'2" SpO2: 96% Weight: 242 lbs 01/30/2017 Blood Pressure 1: 132/72 Code : 8480-6 Heart Rate 1: 97 bpm Height: 5'2" SpO2: 96% Weight: 01/16/2017 Blood Pressure 1: 138/76 Code : 8480-6 BMI: 43.3 Code : 04826-5 Heart Rate 1 : 84 bpm Height: 5'2" SpO2: 99% Weight: 237 lbs 12/13/2016 Blood Pressure 1: 144/78 Code : 8480-6 Heart Rate 1: 96 bpm Height: 5'2" SpO2: 98% Temperature: 36.6 (C) / 97.9 (F) Weight: 11/11/2016 Blood Pressure 1: 144/80 Code : 8480-6 BMI: 43.0 Code : 86352-9 Heart Rate 1 : 89 bpm Height: 5'2" SpO2: 94% Temperature: 36.1 (C) / 97.0 (F) Weight: 235 lbs 10/28/2016 Blood Pressure 1: 156/82 Code : 8480-6 BMI: 43.9 Code : 58206-8 Heart Rate 1 : 78 bpm Height: [...] Code : 8480-6 BMI: 42.4 Code : 36014-9 Heart Rate 1 : 95 bpm Height: 5'2" SpO2: 98% Weight: 232 lbs 08/09/2016 Blood Pressure 1: 138/80 Code : 8480-6 BMI: 41.0 Code : 85556-9 Heart Rate 1 : 98 bpm Height: 5'2" SpO2: 97% Weight: 224 lbs 07/26/2016 Blood Pressure 1: 148/82 Code : 8480-6 BMI: 42.4 Code : 06050-5 Heart Rate 1 : 89 bpm Height: 5'2" SpO2: 97% Weight: 232 lbs 05/24/2016 Blood Pressure 1: 146/72 Code : 8480-6 BMI: 42.4 Code : 27102-7 Heart Rate 1 : 89 bpm Height: 5'2" SpO2: 99% Weight: 232 lbs 04/19/2016 Blood Pressure 1: 130/88 Code : 8480-6 BMI: 42.4 Code : 24941-8 Heart Rate 1 : 88 bpm Height: 5'2" SpO2: 98% Weight: 232 lbs 04/11/2016 Blood Pressure 1: 140/80 Code : 8480-6 BMI: 41.7 Code : 55067-3 Heart Rate 1 : 97 bpm Height: 5'2" SpO2: 95% Weight: 228 lbs 03/21/2016 Blood Pressure 1: 138/80 Code : 8480-6 BMI: 44.4 Code : 87407-8 Height: 5'2" Weight: 243 lbs 03/11/2016 Blood Pressure 1: 138/82 Code : 8480-6 BMI: 44.4 Code : 22078-5 Heart Rate 1 : 86 bpm Height: 5'2" SpO2: 95% Weight: 243 lbs 02/26/2016 Blood Pressure 1: 130/82 Code : 8480-6 BMI: 43.9 Code : 31843-9 Heart Rate 1 : 86 bpm Height: 5'2" SpO2: 97% Weight: 240 lbs 02/02/2016 Blood Pressure 1: 136/86 Code : 8480-6 Heart Rate 1: 56 bpm Height: SpO2: 96% Weight: 12/17/2015 Blood Pressure 1: 140/80 Code : 8480-6 BMI: 40.2 Code : 50122-4 Heart Rate 1 : 100 bpm Height: 5'2" SpO2: 99% Weight: 220 lbs 12/08/2015 Blood Pressure 1: 132/86 Code : 8480-6 Heart Rate 1: 100 bpm Height: SpO2: 97% Weight: 11/27/2015 Blood Pressure 1: 128/82 Code : 8480-6 BMI: 39.3 Code : 68855-5 Heart Rate 1 : 112 bpm Height: 5'2" SpO2: 96% Weight: 215 lbs 11/12/2015 Blood Pressure 1: 168/88 Code : 8480-6 Heart Rate 1: 106 bpm Height: 5'2" SpO2: 96% Weight: 11/10/2015 Blood Pressure 1: 156/80 Code : 8480-6 Heart Rate 1: 94 bpm Height: 5'2" SpO2: 96% Weight: 10/27/2015 Blood Pressure 1: 142/76 Code : 8480-6 BMI: 40.8 Code : 88489-4 Heart Rate 1 : 86 bpm Height: 5'2" SpO2: 97% Weight: 223 lbs 09/29/2015 Blood Pressure 1: 132/88 Code : 8480-6 BMI: 41.7 Code : 07341-4 Heart Rate 1 : 104 bpm Height: 5'2" SpO2: 94% Weight: 228 lbs 09/22/2015 Blood Pressure 1: 130/80 Code : 8480-6 BMI: 41.7 Code : 66682-0 Heart Rate 1 : 89 bpm Height: 5'2" SpO2: 97% Weight: 228 lbs 09/01/2015 Blood Pressure 1: 138/88 Code : 8480-6 BMI: 40.6 Code : 21102-0 Heart Rate 1 : 95 bpm Height: 5'2" SpO2: 95% Weight: 222 lbs 08/10/2015 Blood Pressure 1: 140/82 Code : 8480-6 BMI: 41.0 Code : 80064-0 Heart Rate 1 : 84 bpm Height: 5'2" SpO2: 97% Weight: 224 lbs 06/26/2015 Blood Pressure 1: 152/72 Code : 8480-6 BMI: 41.2 Code : 26748-9 Heart Rate 1 : 92 bpm Height: 5'2" SpO2: 96% Weight: 225 lbs 04/14/2015 Blood Pressure 1: 158/86 Code : 8480-6 BMI: 41.2 Code : 61848-7 Heart Rate 1 : 63 bpm Height: 5'2" SpO2: 93% Weight: 225 lbs 03/03/2015 Blood Pressure 1: 152/80 Code : 8480-6 BMI: 40.1 Code : 42722-2 Heart Rate 1 : 101 bpm Height: 5'2" SpO2: 97% Weight: 219 lbs 01/15/2015 Blood Pressure 1: 127/76 Code : 8480-6 BMI: 40.6 Code : 41344-0 Heart Rate 1 : 109 bpm Height: 5'2" SpO2: 97% Weight: 222 lbs 01/01/2015 Blood Pressure 1: 136/64 Code : 8480-6 BMI: 40.4 Code : 39875-9 Heart Rate 1 : 94 bpm Height: 5'2" SpO2: 96% Weight: 221 lbs 12/25/2014 Blood Pressure 1: 146/80 Code : 8480-6 Heart Rate 1: 95 bpm Height: 5'2" SpO2: 94% 11/04/2014 Blood Pressure 1: 110/70 Code : 8480-6 BMI: 40.2 Code : 43275-2 Heart Rate 1 : 878 bpm Height: 5'2" SpO2: 97% Weight: 220 lbs 09/08/2014 Blood Pressure 1: 142/78 Code : 8480-6 BMI: 39.5 Code : 21499-5 Heart Rate 1 : 97 bpm Height: 5'2" SpO2: 98% Weight: 216 lbs 08/29/2014 Blood Pressure 1: 140/90 Code : 8480-6 Blood Pressure 2: 120/70 Code: 8480-6 BMI: 40.2 Code: 91484-6 Heart Rate 1: 88 bpm Height: 5'2" Weight: 220 lbs 06/30/2014 Blood Pressure 1: 132/74 Code : 8480-6 BMI: 39.1 Code : 89751-6 Heart Rate 1 : 76 bpm Height: 5'2" Weight: 214 lbs 06/12/2014 Blood Pressure 1: 118/76 Code : 8480-6 BMI: 40.4 Code : 47930-4 Heart Rate 1 : 86 bpm Height: 5'2" SpO2: 96% Weight: 221 lbs 05/26/2014 Blood Pressure 1: 128/78 Code : 8480-6 BMI: 39.5 Code : 68543-5 Heart Rate 1 : 76 bpm Height: 5'2" Weight: 216 lbs 04/15/2014 Blood Pressure 1: 144/72 Code : 8480-6 BMI: 40.8 Code : 91803-4 Heart Rate 1 : 60 bpm Height: 5'2" Weight: 223 lbs 03/25/2014 Blood Pressure 1: 118/72 Code : 8480-6 BMI: 41.2 Code : 56197-0 Heart Rate 1 : 80 bpm Height: 5'2" Weight: 225 lbs 03/03/2014 Blood Pressure 1: 138/86 Code : 8480-6 BMI: 41.5 Code : 96365-8 Heart Rate 1 : 104 bpm Height: 5'2" Temperature: 36.1 (C) / 97.0 (F) Weight: 227 lbs 02/13/2014 Blood Pressure 1: 142/88 Code : 8480-6 BMI: 40.8 Code : 30535-8 Heart Rate 1 : 88 bpm Height: 5'2" Weight: 223 lbs 01/27/2014 Blood Pressure 1: 124/68 Code : 8480-6 BMI: 39.9 Code : 90881-4 Heart Rate 1 : 89 bpm Height: 5'2" SpO2: 94% Weight: 218 lbs 12/26/2013 Blood Pressure 1: 108/52 Code : 8480-6 BMI: 41.2 Code : 32167-2 Heart Rate 1 : 96 bpm Height: 5'2" Weight: 225 lbs 12/12/2013 Blood Pressure 1: 158/88 Code : 8480-6 BMI: 42.6 Code : 45578-1 Heart Rate 1 : 80 bpm Height: 5'2" Weight: 233 lbs 11/14/2013 Blood Pressure 1: 120/60 Code : 8480-6 BMI: 42.4 Code : 83325-8 Heart Rate 1 : 96 bpm Height: 5'2" Temperature: 5423.3 (C ) / 9794.0 (F) Weight: 232 lbs 10/21/2013 Blood Pressure 1: 100/60 Code : 8480-6 BMI: 41.9 Code : 11328-4 Heart Rate 1 : 96 bpm Height: 5'2" Weight: 229 lbs 10/03/2013 Blood Pressure 1: 122/72 Code : 8480-6 BMI: 42.3 Code : 81938-2 Heart Rate 1 : 84 bpm Height: 5'2" Weight: 231 lbs 09/27/2013 Blood Pressure 1: 112/58 Code : 8480-6 Heart Rate 1: 72 bpm SpO2: 93% Temperature: 36.2 (C) / 97.1 (F) Weight: 09/23/2013 Blood Pressure 1: 108/76 Code : 8480-6 BMI: 42.4 Code : 38005-8 Heart Rate 1 : 95 bpm Height: 5'2" SpO2: 96% Weight: 232 lbs 09/20/2013 Blood Pressure 1: 150/88 Code : 8480-6 BMI: 42.4 Code : 29988-8 Heart Rate 1 : 104 bpm Height: 5'2" Weight: 232 lbs 09/10/2013 Blood Pressure 1: 112/62 Code : 8480-6 Heart Rate 1: 88 bpm Weight: 238 lbs 08/19/2013 Blood Pressure 1: 102/58 Code : 8480-6 BMI: 43.7 Code : 37146-8 Heart Rate 1 : 80 bpm Height: 5'2" Weight: 239 lbs 08/12/2013 Blood Pressure 1: 110/60 Code : 8480-6 BMI: 43.3 Code : 36221-0 Heart Rate 1 : 90 bpm Height: 5'2" SpO2: 96% Weight: 236 lbs 8 oz 08/01/2013 Blood Pressure 1: 128/72 Code : 8480-6 BMI: 42.6 Code : 29476-4 Heart Rate 1 : 78 bpm Height: 5'2" SpO2: 97% Weight: 233 lbs 07/19/2013 Blood Pressure 1: 100/60 Code : 8480-6 BMI: 44.3 Code : 44941-2 Heart Rate 1 : 92 bpm Height: 5'2" Temperature: 36.2 (C) / 97.2 (F) Weight: 242 lbs 07/15/2013 Blood Pressure 1: 180/92 Code : 8480-6 Heart Rate 1: 115 bpm SpO2: 98% Weight: 06/27/2013 Blood Pressure 1: 114/64 Code : 8480-6 BMI: 44.1 Code : 92458-8 Heart Rate 1 : 114 bpm Height: 5'2" SpO2: 93% Weight: 241 lbs 06/10/2013 Blood Pressure 1: 174/86 Code : 8480-6 BMI: 44.1 Code : 00844-2 Heart Rate 1 : 132 bpm Height: 5'2" SpO2: 94% Temperature: 35.6 (C) / 96.0 (F) Weight: 241 lbs 05/07/2013 Blood Pressure 1: 160/88 Code : 8480-6 BMI: 43.5 Code : 40102-9 Heart Rate 1 : 108 bpm Height: 5'2" SpO2: 96% Weight: 238 lbs 04/16/2013 Blood Pressure 1: 116/62 Code : 8480-6 BMI: 44.6 Code : 42943-7 Heart Rate 1 : 90 bpm Height: 5'2" SpO2: 94% Weight: 244 lbs 03/21/2013 Blood Pressure 1: 102/64 Code : 8480-6 BMI: 42.8 Code : 52513-6 Height: 5'2" Weight: 234 lbs 02/12/2013 Blood Pressure 1: 130/78 Code : 8480-6 BMI: 42.0 Code : 44541-3 Heart Rate 1 : 100 bpm Height: 5'2" Weight: 229 lbs 8 oz 02/04/2013 Blood Pressure 1: 126/68 Code : 8480-6 BMI: 44.3 Code : 48666-3 Heart Rate 1 : 88 bpm Height: 5'2" Weight: 242 lbs 01/17/2013 Blood Pressure 1: 132/76 Code : 8480-6 Heart Rate 1: 121 bpm SpO2: 97% Weight: 242 lbs 12/31/2012 Blood Pressure 1: 144/90 Code : 8480-6 BMI: 43.0 Code : 82053-4 Heart Rate 1 : 96 bpm Height: 5'2" Temperature: 36.2 (C) / 97.2 (F) Weight: 235 lbs 12/20/2012 Blood Pressure 1: 156/96 Code : 8480-6 BMI: 42.4 Code : 77616-1 Heart Rate 1 : 96 bpm Height: [...] Code : 8480-6 BMI: 38.8 Code : 77927-4 Heart Rate 1 : 96 bpm Height: 5'2" Temperature: 36.3 (C) / 97.3 (F) Weight: 212 lbs 08/23/2012 Blood Pressure 1: 116/72 Code : 8480-6 BMI: 38.3 Code : 51608-3 Heart Rate 1 : 92 bpm Height: 5'2" Weight: 209 lbs 8 oz 08/13/2012 Blood Pressure 1: 140/92 Code : 8480-6 BMI: 37.3 Code : 84913-3 Heart Rate 1 : 104 bpm Height: 5'2" Weight: 204 lbs 08/07/2012 Blood Pressure 1: 148/98 Code : 8480-6 BMI: 36.6 Code : 36591-4 Heart Rate 1 : 102 bpm Height: [...] Code : 8480-6 BMI: 35.3 Code : 37352-4 Heart Rate 1 : 105 bpm Height: [...] december - she was seen by 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 She states that she saw her billiard parlor manager and was to be started on another [...] lesion Alleviating Factors medication 09/10/2013 went to [facility] care on Monday and start on [...] differently. States she did eat BBQ from [employer] yesterday for lunch. hypertension Quality [...] data Encounters Encounter Performer Location Codes Date EST. PATIENT, LEVEL III Diagnosis: Cough[ICD10: R05] Diagnosis: Chronic maxillary sinusitis[ICD10: J32.0] Diagnosis: Type 2 diabetes mellitus with hyperglycemia[ICD10: E11.65] Rika Motta MD, [facility] CPT-4: 00690 04/27/2018 [id number]) 34688 EST. PATIENT, LEVEL IV Diagnosis: Essential (primary) hypertension[ICD10: I10] Diagnosis: Type 2 diabetes mellitus with hyperglycemia[ICD10: E11.65] Diagnosis: Generalized anxiety disorder[ICD10: F41.1] Diagnosis: Weakness[ICD10: R53.1] [facility] CPT-4: 14977 04/10/2018 ([id number]) 26942 EST. PATIENT, LEVEL IV Diagnosis: Type 2 diabetes mellitus with hyperglycemia[ICD10: E11.65] Diagnosis: Low back pain[ICD10: M54.5] Diagnosis: Essential (primary) hypertension[ICD10: I10] Diagnosis: Generalized anxiety disorder[ICD10: F41.1] [facility] CPT-4: 28860 03/12/2018 [id number]) 95568 EST. PATIENT, LEVEL III Diagnosis: Type 2 diabetes mellitus with hyperglycemia[ICD10: E11.65] Diagnosis: Essential (primary) hypertension[ICD10: I10] Diagnosis: Dysuria[ICD10: R30.0] Diagnosis: Vitamin D deficiency, unspecified[ICD10: E55.9] Diagnosis: Low back pain[ICD10: M54.5] Rika Motta MD, [facility] CPT-4: 29330 02/20/2018 ([id number]) 40880 EST. PATIENT, LEVEL III Diagnosis: Dysuria[ICD10: R30.0] Diagnosis: Essential (primary) hypertension[ICD10: I10] Rika Motta MD, [facility] CPT-4: 83843 11/27/2017 ([id number]) 00721 EST. PATIENT, LEVEL III Diagnosis: Type 2 diabetes mellitus with hyperglycemia[ICD10: E11.65] Diagnosis: Chronic pain syndrome[ICD10: G89.4] Rika Motta MD, [facility] CPT-4: 67509 09/15/2017 ([id number]) 74822 EST. 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 PATIENT, LEVEL III Diagnosis: Chronic maxillary sinusitis[ICD10: J32.0] Diagnosis: Type 2 diabetes mellitus with hyperglycemia[ICD10: E11.65] Diagnosis: Hordeolum externum left upper eyelid[ICD10: H00.014] Rika Motta MD, [facility] CPT-4: 32256 08/03/2017 ([id number]) 44302 EST. PATIENT, LEVEL IV Diagnosis: Type 2 diabetes mellitus with hyperglycemia[ICD10: E11.65] Diagnosis: Hordeolum externum left upper eyelid[ICD10: H00.014] Diagnosis: Essential (primary) hypertension[ICD10: I10] Diagnosis: Chronic obstructive pulmonary disease, unspecified[ICD10: J44.9] Rika Motta MD, [facility] CPT-4: 48877 07/27/2017 ([id number]) 59157 EST. PATIENT, LEVEL IV Diagnosis: Type 2 diabetes mellitus with hyperglycemia[ICD10: E11.65] Diagnosis: Essential (primary) hypertension[ICD10: I10] Tessie Motta MD, [facility] CPT-4: 28026 06/13/2017 63268 EST. PATIENT, LEVEL IV Diagnosis: Periapical abscess without sinus[ICD10: K04.7] Arlette Motta MD, [facility] CPT-4: 43873 04/21/2017 ([id number]) 73564 EST. PATIENT, LEVEL IV Diagnosis: Type 2 diabetes mellitus with hyperglycemia[ICD10: E11.65] Diagnosis: Cellulitis of abdominal wall[ICD10: L03.311] Diagnosis: Chronic pain syndrome[ICD10: G89.4] Diagnosis: Essential (primary) hypertension[ICD10: I10] Diagnosis: Unsteadiness on feet[ICD10: R26.81] Rika Motta MD, [facility] CPT-4: 43560 04/18/2017 ([id number]) 01512 EST. PATIENT, LEVEL IV Diagnosis: Type 2 diabetes mellitus with hyperglycemia[ICD10: E11.65] Diagnosis: Hypokalemia[ICD10: E87.6] Diagnosis: Essential (primary) hypertension[ICD10: I10] Diagnosis: Paroxysmal atrial fibrillation[ICD10: I48.0] Rika Motta MD, [facility] CPT-4: 85218 03/27/2017 ([id number]) 21748 EST. PATIENT, LEVEL IV Diagnosis: Essential (primary) hypertension[ICD10: I10] Diagnosis: Type 2 diabetes mellitus with hyperglycemia[ICD10: E11.65] Diagnosis: Hypokalemia[ICD10: E87.6] Diagnosis: Generalized abdominal pain[ICD10: R10.84] Rika Motta MD, [facility] CPT-4: 29944 02/27/2017 ([id number]) 03707 EST. PATIENT, LEVEL III Diagnosis: Drug induced constipation[ICD10: K59.03] Rika Motta MD, [facility] CPT-4: 56119 02/21/2017 ([id number]) 43752 EST. PATIENT, LEVEL IV Diagnosis: Generalized abdominal pain[ICD10: R10.84] Diagnosis: Hypokalemia[ICD10: E87.6] Diagnosis: Hypomagnesemia[ICD10: E83.42] Rika Motta MD, [facility] CPT-4: 58516 02/17/2017 ([id number]) 22310 EST. PATIENT, LEVEL IV Diagnosis: Paroxysmal atrial fibrillation[ICD10: I48.0] Diagnosis: Essential (primary) hypertension[ICD10: I10] Diagnosis: Chronic obstructive pulmonary disease, unspecified[ICD10: J44.9] Diagnosis: Type 2 diabetes mellitus with hyperglycemia[ICD10: E11.65] Diagnosis: Diarrhea, unspecified[ICD10: R19.7] Rika Motta MD, [facility] CPT-4: 17398 02/13/2017 ([id number]) 74539 EST. PATIENT, LEVEL IV Diagnosis: Type 2 diabetes mellitus with hyperglycemia[ICD10: E11.65] Diagnosis: Pain in right shoulder[ICD10: M25.511] Diagnosis: Chronic maxillary sinusitis[ICD10: J32.0] Rika Motta MD, [facility] CPT-4: 83306 01/30/2017 ([id number]) 91292 EST. PATIENT, LEVEL IV Diagnosis: Essential (primary) hypertension[ICD10: I10] Diagnosis: Type 2 diabetes mellitus with hyperglycemia[ICD10: E11.65] Diagnosis: Hypothyroidism, unspecified[ICD10: E03.9] Diagnosis: Generalized anxiety disorder[ICD10: F41.1] Diagnosis: Chronic pain syndrome[ICD10: G89.4] Diagnosis: Restless legs syndrome[ICD10: G25.81] Diagnosis: Obstructive sleep apnea (adult) (pediatric)[ICD10: G47.33] Rika Motta MD, [facility] CPT-4: 45270 01/16/2017 [id number] EST. PATIENT, LEVEL IV Diagnosis: Other acute sinusitis[ICD10: J01.80] Diagnosis: Diplopia[ICD10: H53.2] Arlette Motta MD, [facility] CPT-4: 26527 12/13/2016 ([id number]) 51194 EST. PATIENT, LEVEL IV Diagnosis: Essential (primary) hypertension[ICD10: I10] Diagnosis: Fasciculation[ICD10: R25.3] Diagnosis: Generalized anxiety disorder[ICD10: F41.1] Diagnosis: Other obesity due to excess calories[ICD10: E66.09] Diagnosis: Zoster without complications[ICD10: B02.9] Diagnosis: Unilateral primary osteoarthritis, right knee[ICD10: M17.11] Diagnosis: Unsteadiness on feet[ICD10: R26.81] Rika Motta MD, [facility] CPT-4: 64989 11/11/2016 ([id number]) 62156 EST. PATIENT, LEVEL IV Diagnosis: Zoster without complications[ICD10: B02.9] Diagnosis: Type 2 diabetes mellitus with hyperglycemia[ICD10: E11.65] Diagnosis: Vomiting, unspecified[ICD10: R11.10] Rika Motta MD, [facility] CPT-4: 94235 10/28/2016 ([id number]) 08770 EST. PATIENT, LEVEL III Diagnosis: Pain in right knee[ICD10: M25.561] Diagnosis: Zoster without complications[ICD10: B02.9] Rika Motta MD, [facility] CPT-4: 66682 10/13/2016 ([id number]) 18164 EST. PATIENT, LEVEL IV Diagnosis: Acute recurrent maxillary sinusitis[ICD10: J01.01] Diagnosis: Low back pain[ICD10: M54.5] Diagnosis: Pain in right knee[ICD10: M25.561] Diagnosis: Allergic rhinitis due to pollen[ICD10: J30.1] Rika Motta MD, [facility] CPT-4: 50900 09/23/2016 ([id number]) 50724 EST. PATIENT, LEVEL IV Diagnosis: Pain in right shoulder[ICD10: M25.511] Diagnosis: Type 2 diabetes mellitus with hyperglycemia[ICD10: E11.65] Diagnosis: Cervicalgia[ICD10: M54.2] Diagnosis: Candidiasis of skin and nail[ICD10: B37.2] Diagnosis: Low back pain[ICD10: M54.5] Rika Motta MD, [facility] CPT-4: 18546 09/13/2016 ([id number]) 13628 EST. 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 PATIENT, LEVEL IV Diagnosis: Type 2 diabetes mellitus with hyperglycemia[ICD10: E11.65] Diagnosis: Candidiasis of skin and nail[ICD10: B37.2] Diagnosis: Chronic obstructive pulmonary disease, unspecified[ICD10: J44.9] Diagnosis: Paroxysmal atrial fibrillation[ICD10: I48.0] Diagnosis: Pneumonia, unspecified organism[ICD10: J18.9] Rika Motta MD, [facility] CPT-4: 84980 07/26/2016 ([id number]) 86743 EST. PATIENT, LEVEL IV Diagnosis: Type 2 diabetes mellitus with hyperglycemia[ICD10: E11.65] Diagnosis: Generalized anxiety disorder[ICD10: F41.1] Diagnosis: Essential (primary) hypertension[ICD10: I10] Diagnosis: Chronic pain syndrome[ICD10: G89.4] Rika Motta MD, [facility] CPT-4: 66578 05/24/2016 ([id number]) 36960 EST. PATIENT, LEVEL IV Diagnosis: Menopausal and female climacteric states[ICD10: N95.1] Diagnosis: Type 2 diabetes mellitus with hyperglycemia[ICD10: E11.65] Diagnosis: Generalized anxiety disorder[ICD10: F41.1] Rika Motta MD, [facility] CPT-4: 00923 04/19/2016 ([id number]) 29606 EST. PATIENT, LEVEL IV Diagnosis: Type 2 diabetes mellitus with hyperglycemia[ICD10: E11.65] Diagnosis: Generalized anxiety disorder[ICD10: F41.1] Diagnosis: Essential (primary) hypertension[ICD10: I10] Diagnosis: Dysuria[ICD10: R30.0] Rika Motta MD, [facility] CPT-4: 69991 04/11/2016 ([id number]) 47696 EST. PATIENT, LEVEL IV Diagnosis: Generalized anxiety disorder[ICD10: F41.1] Diagnosis: Major depressive disorder, single episode, mild[ICD10: F32.0] Diagnosis: Hypothyroidism, unspecified[ICD10: E03.9] Diagnosis: Type 2 diabetes mellitus with hyperglycemia[ICD10: E11.65] Rika Motta MD, [facility] CPT-4: 39202 03/21/2016 ([id number]) 84677 EST. PATIENT, LEVEL IV Diagnosis: Type 2 diabetes mellitus with hyperglycemia[ICD10: E11.65] Diagnosis: Cellulitis of right lower limb[ICD10: L03.115] Diagnosis: Other elevated white blood cell count[ICD10: D72.828] Diagnosis: Localized edema[ICD10: R60.0] Rika Motta MD, [facility] CPT-4: 98923 03/11/2016 ([id number]) 41405 EST. PATIENT, LEVEL IV Diagnosis: Type 2 diabetes mellitus with hyperglycemia[ICD10: E11.65] Diagnosis: Localized edema[ICD10: R60.0] Diagnosis: Other conjunctivitis[ICD10: H10.89] Diagnosis: Obstructive sleep apnea (adult) (pediatric)[ICD10: G47.33] Diagnosis: Unspecified asthma, uncomplicated[ICD10: J45.909] Diagnosis: VAC STREP PNEUMONIAE-FLU[ICD10: Z23] Rika Motta MD, [facility] CPT-4: 33836 02/26/2016 [id number]) [id number] EST. PATIENT, LEVEL IV Diagnosis: Essential (primary) hypertension[ICD10: I10] Diagnosis: Paroxysmal atrial fibrillation[ICD10: I48.0] Diagnosis: Type 2 diabetes mellitus with hyperglycemia[ICD10: E11.65] Diagnosis: Obstructive sleep apnea (adult) (pediatric)[ICD10: G47.33] Diagnosis: Chronic obstructive pulmonary disease, unspecified[ICD10: J44.9] Rika Motta MD, [facility] CPT-4: 71661 02/02/2016 ([id number]) [id number] EST. 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 PATIENT, LEVEL IV Diagnosis: Type 2 diabetes mellitus with hyperglycemia[ICD10: E11.65] Diagnosis: Generalized anxiety disorder[ICD10: F41.1] Diagnosis: Essential (primary) hypertension[ICD10: I10] Diagnosis: Restless legs syndrome[ICD10: G25.81] Diagnosis: Dysuria[ICD10: R30.0] Rika Motta MD, [facility] CPT-4: 78827 11/27/2015 15476 EST. PATIENT, LEVEL IV Diagnosis: Addisonian crisis[ICD10: E27.2] Arlette Motta MD, [facility] CPT-4 : 83512 11/12/2015 38241 EST. PATIENT, LEVEL IV Diagnosis: Acute bronchitis due to other specified organisms[ICD10: J20.8] Diagnosis: Other acute sinusitis[ICD10: J01.80] Diagnosis: Other malaise[ICD10: R53.81] Diagnosis: Cough[ICD10: R05] Arlette Motta MD, [facility] CPT-4: 97994 11/10/2015 83692 EST. PATIENT, LEVEL IV Diagnosis: Pain in left knee[ICD10: M25.562] Diagnosis: Cellulitis of right toe[ICD10: L03.031] Arlette Motta MD, [facility] CPT-4: 22128 10/27/2015 ([id number]) 06947 EST. PATIENT, LEVEL IV Diagnosis: Essential (primary) hypertension[ICD10: I10] Diagnosis: Localized edema[ICD10: R60.0] Diagnosis: Type 2 diabetes mellitus with hyperglycemia[ICD10: E11.65] Rika Motta MD, [facility] CPT-4: 92410 09/22/2015 ([id number]) 53924 EST. PATIENT, LEVEL IV Diagnosis: Essential (primary) hypertension[ICD10: I10] Diagnosis: Type 2 diabetes mellitus with hyperglycemia[ICD10: E11.65] Diagnosis: Cellulitis of right toe[ICD10: L03.031] Rika Motta MD, [facility] CPT-4: 40268 09/01/2015 ([id number]) 74739 EST. PATIENT, LEVEL IV Diagnosis: Type 2 diabetes mellitus with hyperglycemia[ICD10: E11.65] Diagnosis: Essential (primary) hypertension[ICD10: I10] Diagnosis: Generalized anxiety disorder[ICD10: F41.1] Diagnosis: Hypothyroidism, unspecified[ICD10: E03.9] Diagnosis: Body mass index (BMI) 40.0-44.9, adult[ICD10: Z68.41] Rika Motta MD, [facility] CPT-4: 84090 08/10/2015 46058 EST. PATIENT, LEVEL IV Diagnosis: Acute bronchitis due to other specified organisms[ICD10: J20.8] Diagnosis: Pain in left knee[ICD10: M25.562] Diagnosis: Type 2 diabetes mellitus with hyperglycemia[ICD10: E11.65] Arlette Motta MD, [facility] CPT-4: 02138 06/26/2015 ([id number]) 32182 EST. PATIENT, LEVEL IV Diagnosis: Cellulitis of right lower limb[ICD10: L03.115] Diagnosis: Type 2 diabetes mellitus with hyperglycemia[ICD10: E11.65] Diagnosis: Essential (primary) hypertension[ICD10: I10] Diagnosis: Edema, unspecified[ICD10: R60.9] Rika Motta MD, [facility] CPT-4: 49188 04/14/2015 ([id number]) 05391 EST. PATIENT, LEVEL IV Diagnosis: Essential (primary) hypertension[ICD10: I10] Diagnosis: Type 2 diabetes mellitus with hyperglycemia[ICD10: E11.65] Diagnosis: Localized edema[ICD10: R60.0] Diagnosis: Dysuria[ICD10: R30.0] Rika Motta MD, [facility] CPT-4: 74227 03/03/2015 ([id number]) 23324 EST. PATIENT, LEVEL III Diagnosis: Blister of leg[ICD9: 916.2] Diagnosis: Rash[ICD9: 782.1] Diagnosis: EDEMA[ICD9: 782.3] Tessie Motta MD, [facility] CPT-4: 19639 01/15/2015 ([id number]) 85332 EST. PATIENT, LEVEL IV Diagnosis: Cellulitis, leg[ICD9: 682.6] Diagnosis: DIABETES TYPE II[ICD9: 250.00] Tessie Motta MD, [facility] CPT- 4: 25567 01/01/2015 ([id number]) Miscellaneous no charge Diagnosis: CVA (cerebral vascular accident)[ICD9: 434.91] Isabella Motta MD, [facility] CPT-4: 08635 12/25/2014 ([id number]) 03044 EST. PATIENT, LEVEL IV Diagnosis: ESSENTIAL HYPERTENSION[ICD9: 401.9] Diagnosis: DM W/O COMPLICATION TYPE II, UNCONTROLLED[ICD9: 250.02] Diagnosis: EDEMA[ICD9: 782.3] Diagnosis: Dysuria[ICD9: 788.1] Rika Motta MD, [facility] CPT-4: 61395 11/04/2014 ([id number]) 61400 EST. PATIENT, LEVEL IV Diagnosis: EDEMA[ICD9: 782.3] Diagnosis: Cellulitis of right leg[ICD9: 682.6] Diagnosis: Allergic rhinitis[ICD9: 477.9] Rika Motta MD, [facility] CPT-4: 12374 09/08/2014 ([id number]) 39176 EST. PATIENT, LEVEL IV Diagnosis: EDEMA[ICD9: 782.3] Diagnosis: ESSENTIAL HYPERTENSION[ICD9: 401.9] Diagnosis: DIABETES TYPE II[ICD9: 250.00] Diagnosis: Cellulitis of right leg[ICD9: 682.6] Rika Motta MD, [facility] CPT-4: 69049 08/29/2014 ([id number]) 71207 EST. PATIENT, LEVEL III Diagnosis: EDEMA[ICD9: 782.3] Diagnosis: DIABETES TYPE II[ICD9: 250.00] Tessie Motta MD, [facility] CPT- 4: 44231 06/30/2014 ([id number]) 81982 EST. PATIENT, LEVEL IV Diagnosis: EDEMA[ICD9: 782.3] Diagnosis: DM W/O COMPLICATION TYPE II, UNCONTROLLED[ICD9: 250.02] Diagnosis: Sciatica[ICD9: 724.3] Tessie Motta MD, [facility] CPT-4: 47174 06/12/2014 ([id number]) 97316 EST. PATIENT, LEVEL III Diagnosis: Cellulitis, leg[ICD9: 682.6] Diagnosis: EDEMA[ICD9: 782.3] Rika Motta MD, [facility] CPT-4: 76392 05/26/2014 ([id number]) 50402 EST. PATIENT, LEVEL IV Diagnosis: DIABETES TYPE II[ICD9: 250.00] Diagnosis: Chronic sinusitis[ICD9: 473.9] Tessie Motta MD, [facility] CPT- 4: 77048 04/15/2014 ([id number]) 18988 EST. PATIENT, LEVEL IV Diagnosis: DM W/O COMPLICATION TYPE II, UNCONTROLLED[ICD9: 250.02] Diagnosis: CHRONIC SINUSITIS[ICD9: 473.9] Diagnosis: EDEMA[ICD9: 782.3] Diagnosis: Right knee pain[ICD9: 719.46] Rika Motta MD, [facility] CPT-4: 10277 03/25/2014 ([id number]) 53884 EST. PATIENT, LEVEL IV Diagnosis: Blister of leg[ICD9: 916.2] Diagnosis: EDEMA[ICD9: 782.3] Diagnosis: DM W/O COMPLICATION TYPE II, UNCONTROLLED[ICD9: 250.02] Diagnosis: ESSENTIAL HYPERTENSION[ICD9: 401.9] Rika Motta MD, [facility] CPT-4: 09059 03/03/2014 ([id number]) 55533 EST. PATIENT, LEVEL IV Diagnosis: CELLULITIS OF LEG[ICD9: 682.6] Diagnosis: Diabetes mellitus type 2, uncontrolled[ICD9: 250.02] Diagnosis: ESSENTIAL HYPERTENSION[ICD9: 401.9] Diagnosis: EDEMA[ICD9: 782.3] Tessie Motta MD, [facility] CPT-4: 23839 02/13/2014 ([id number]) 69455 EST. PATIENT, LEVEL IV Diagnosis: Diabetes mellitus type 2, uncontrolled[ICD9: 250.02] Tessie Motta MD, [facility] CPT-4: 56190 01/27/2014 ([id number]) 22877 EST. PATIENT, LEVEL III Diagnosis: OPEN WND KNEE/LEG/ANKLE[ICD9: 891.0] Diagnosis: EDEMA[ICD9: 782.3] Rika Motta MD, [facility] CPT-4: 46617 12/26/2013 ([id number]) 82425 EST. PATIENT, LEVEL III Diagnosis: Cellulitis of right leg[ICD9: 682.6] Diagnosis: OPEN WND KNEE/LEG/ANKLE[ICD9: 891.0] Rika Motta MD, [facility] CPT-4: 41597 12/12/2013 ([id number]) 62080 EST. PATIENT, LEVEL IV Diagnosis: Asthma exacerbation[ICD9: 493.92] Diagnosis: COUGH[ICD9: 786.2] Diagnosis: EDEMA[ICD9: 782.3] Rika Motta MD, [facility] CPT-4: 87130 11/14/2013 ([id number]) 30455 EST. PATIENT, LEVEL III Diagnosis: OPEN WND KNEE/LEG/ANKLE[ICD9: 891.0] Diagnosis: EDEMA[ICD9: 782.3] Rika Motta MD, [facility] CPT-4: 33944 10/21/2013 ([id number]) 60754 EST. PATIENT, LEVEL IV Diagnosis: ESSENTIAL HYPERTENSION[SNOMED: 83117032] Diagnosis: Right knee pain[ICD9: 719.46] Diagnosis: OPEN WND KNEE/LEG/ANKLE[ICD9: 891.0] Rika Motta MD, [facility] CPT-4: 64170 10/03/2013 ([id number]) Miscellaneous no charge Diagnosis: Open wound of leg[ICD9: 891.0] Rika Motta MD, [facility] CPT-4: 60700 09/27/2013 49900 EST. PATIENT, LEVEL II Diagnosis: Open wound of leg[ICD9: 891.0] Diagnosis: Wrist pain, left[ICD9: 719.43] Rika Motta MD, [facility] CPT-4: 74596 09/23/2013 ([id number]) 52248 EST. PATIENT, LEVEL IV Diagnosis: CELLULITIS OF LEG[ICD9: 682.6] Diagnosis: ESSENTIAL HYPERTENSION[SNOMED: 04016862] Diagnosis: EDEMA[ICD9: 782.3] Rika Motta MD, [facility] CPT-4: 66347 09/20/2013 ([id number]) 01652 EST. PATIENT, LEVEL IV Diagnosis: Open wound of right lower leg[ICD9: 891.0] Diagnosis: DM W/O COMPLICATION TYPE II, UNCONTROLLED[SNOMED: 15442687] Diagnosis: Edema[ICD9: 782.3] Rika Motta MD, [facility] CPT-4: 50174 09/10/2013 ([id number]) 16322 EST. PATIENT, LEVEL III Diagnosis: DM W/O COMPLICATION TYPE II, UNCONTROLLED[SNOMED: 04134391] Diagnosis: EDEMA[ICD9: 782.3] Tessie Motta MD, [facility] CPT-4: 87962 08/19/2013 ([id number]) 08181 EST. PATIENT, LEVEL IV Diagnosis: EDEMA[ICD9: 782.3] Diagnosis: DIABETES TYPE II[SNOMED: 330840026] Diagnosis: HYPOTHYROIDISM[ICD9: 244.9] Diagnosis: LUMBAGO[ICD9: 724.2] Diagnosis: SCIATICA[ICD9: 724.3] Tessie Motta MD, [facility] CPT-4: 65666 08/12/2013 ([id number]) 96366 EST. PATIENT, LEVEL IV Diagnosis: DIABETES TYPE II[SNOMED: 334584485] Diagnosis: EDEMA[ICD9: 782.3] Diagnosis: HYPOTHYROIDISM[ICD9: 244.9] Diagnosis: Encounter for long-term (current) use of other medications[ICD9: V58.69] Diagnosis: LUMBAGO[ICD9: 724.2] Rika Motta MD, [facility] CPT-4: 67943 08/01/2013 ([id number]) 61935 EST. PATIENT, LEVEL III Diagnosis: Blister of right foot[ICD9: 917.2] iRka Motta MD, [facility] CPT-4: 66708 07/19/2013 ([id number]) 75454 EST. PATIENT, LEVEL III Diagnosis: Cellulitis of right leg[ICD9: 682.6] Diagnosis: ESSENTIAL HYPERTENSION[SNOMED: 49036073] Diagnosis: EDEMA[ICD9: 782.3] Rika Motta MD, [facility] CPT-4: 84613 07/15/2013 ([id number]) 46216 EST. PATIENT, LEVEL IV Diagnosis: DIABETES TYPE II[SNOMED: 750614765] Diagnosis: BACKACHE[ICD9: 724.5] Diagnosis: Muscle spasms of neck[ICD9: 728.85] Tessie Motta MD, [facility] CPT-4: 49792 06/27/2013 ([id number]) 00377 EST. PATIENT, LEVEL IV Diagnosis: DM W/O COMPLICATION TYPE II, UNCONTROLLED[SNOMED: 42020316] Diagnosis: EDEMA[ICD9: 782.3] Diagnosis: OBESITY[ICD9: 278.00] Diagnosis: WHEEZING[ICD9: 786.07] Tessie Motta MD, [facility] CPT-4: 49719 06/10/2013 ([id number]) 78695 EST. PATIENT, LEVEL IV Diagnosis: CHRONIC SINUSITIS[ICD9: 473.9] Diagnosis: WHEEZING[ICD9: 786.07] Diagnosis: ACUTE BRONCHITIS[ICD9: 466.0] Diagnosis: Back pain[ICD9: 724.5] Tessie Motta MD, [facility] CPT-4: 92295 05/07/2013 ([id number]) 78838 EST. PATIENT, LEVEL IV Diagnosis: EDEMA[ICD9: 782.3] Diagnosis: COPD (chronic obstructive pulmonary disease) with acute bronchitis[ ICD9: 491.22] Tessie Motta MD [facility] CPT-4: 80029 04/16/2013 ([id number]) 30242 EST. PATIENT, LEVEL IV Diagnosis: Lumbago[ICD9: 724.2] Diagnosis: DM W/O COMPLICATION TYPE II, UNCONTROLLED[SNOMED: 02037271] Diagnosis: EDEMA[ICD9: 782.3] Rika Motta MD, [facility] CPT-4: 58047 03/21/2013 ([id number]) 33230 EST. PATIENT, LEVEL IV Diagnosis: Abdominal pain[ICD9: 789.00] Diagnosis: EDEMA[ICD9: 782.3] Diagnosis: DIABETES TYPE II[SNOMED: 248059402] Tessie Motta MD, [facility] CPT-4: 28199 02/12/2013 ([id number]) 64959 EST. PATIENT, LEVEL III Diagnosis: EDEMA[ICD9: 782.3] Diagnosis: RESPIRATORY ABNORM NEC[ICD9: 786.09] Tessie Motta MD, [facility] CPT-4: 41061 02/04/2013 ([id number]) 76912 EST. PATIENT, LEVEL IV Diagnosis: Edema[ICD9: 782.3] Diagnosis: ESSENTIAL HYPERTENSION[SNOMED: 77289240] Tessie Motta MD, [facility] CPT-4: 25024 01/17/2013 ([id number]) 35994 EST. PATIENT, LEVEL IV Diagnosis: ESSENTIAL HYPERTENSION[SNOMED: 65425085] Diagnosis: Diabetic leg ulcer[ICD9: 250.80] Diagnosis: Callus[ICD9: 700] Diagnosis: Urinary urgency[ICD9: 788.63] Diagnosis: HYPOTHYROIDISM[ICD9: 244.9] Rika Motta MD, [facility] CPT-4: 25678 12/31/2012 ([id number]) 93296 EST. PATIENT, LEVEL IV Diagnosis: Cellulitis of left leg[ICD9: 682.6] Diagnosis: DIABETES TYPE II[SNOMED: 004661431] Diagnosis: ESSENTIAL HYPERTENSION[SNOMED: 65337343] Diagnosis: EDEMA[ICD9: 782.3] Rika Motta MD, [facility] CPT-4: 79623 12/20/2012 ([id number]) 83366 EST. PATIENT, LEVEL III Diagnosis: Acute bronchitis[ICD9: 466.0] Diagnosis: COUGH[ICD9: 786.2] Tessie Motta MD, [facility] CPT-4: 57933 10/29/2012 ([id number]) 14621 EST. PATIENT, LEVEL IV Diagnosis: ESSENTIAL HYPERTENSION[SNOMED: 93804937] Diagnosis: DIABETES TYPE II[SNOMED: 506127659] Diagnosis: HYPOTHYROIDISM[ICD9: 244.9] Tessie Motta MD, [facility] CPT- 4: 40497 09/06/2012 ([id number]) 77714 EST. PATIENT, LEVEL IV Diagnosis: DIABETES TYPE II[SNOMED: 240344004] Diagnosis: ESSENTIAL HYPERTENSION[SNOMED: 21971790] Diagnosis: Diarrhea[ICD9: 787.91] Tessie Motta MD, [facility] CPT-4: 96075 08/23/2012 ([id number]) 19141 EST. PATIENT, LEVEL III Diagnosis: ESSENTIAL HYPERTENSION[SNOMED: 99504140] Diagnosis: Gastroenteritis[ICD9: 558.9] Rika Motta MD [facility] CPT-4: 63099 08/13/2012 ([id number]) 56358 EST. PATIENT, LEVEL IV Diagnosis: Diarrhea[ICD9: 787.91] Diagnosis: ESSENTIAL HYPERTENSION[SNOMED: 09109589] Diagnosis: DM W/O COMPLICATION TYPE II, UNCONTROLLED[SNOMED: 61704998] Rika Motta MD [facility] CPT-4: 50909 08/07/2012 ([id number]) 89962 EST. PATIENT, LEVEL III Diagnosis: Acute sinusitis[ICD9: 461.9] Diagnosis: Thrush[ICD9: 112.0] Rika Motta MD [facility] CPT-4: 74600 07/06/2012 ([id number]) 85041 EST. PATIENT, LEVEL IV Diagnosis: ESSENTIAL HYPERTENSION[SNOMED: 83498588] Diagnosis: DIABETES TYPE II[SNOMED: 343870646] Tessie Motta MD [facility] CPT-4: 20848 06/07/2012 ([id number]) 56589 EST. PATIENT, LEVEL IV Diagnosis: ESSENTIAL HYPERTENSION[SNOMED: 87622214] Diagnosis: ACUTE SINUSITIS[ICD9: 461.9] Diagnosis: Labial cyst[ICD9: 624.8] Tessie Motta MD, [facility] CPT-4: 97029 05/28/2012 ([id number]) 24196 EST. PATIENT, LEVEL IV Diagnosis: ESSENTIAL HYPERTENSION[SNOMED: 21342057] Diagnosis: EDEMA[ICD9: 782.3] Tessie Motta MD [facility] CPT-4: 58552 05/17/2012 ([id number]) 16522 EST. PATIENT, LEVEL IV Diagnosis: EDEMA[ICD9: 782.3] Diagnosis: ESSENTIAL HYPERTENSION[SNOMED: 52942176] Diagnosis: Diarrhea[ICD9: 787.91] Diagnosis: ALLERGIC RHINITIS[ICD9: 477.9] Tessie Motta MD [facility] CPT- 4: 62167 05/02/2012 ([id number]) 97904 EST. PATIENT, LEVEL IV Diagnosis: ACUTE SINUSITIS[ICD9: 461.9] Diagnosis: ESSENTIAL HYPERTENSION[SNOMED: 06499519] Diagnosis: ALLERGIC RHINITIS[ICD9: 477.9] Tessie Motta MD [facility] CPT- 4: 71184 04/10/2012 ([id number]) 09249 EST. PATIENT, LEVEL IV Diagnosis: ESSENTIAL HYPERTENSION[SNOMED: 96762990] Diagnosis: Foreign body in foot or toe[ICD9: 917.6] Diagnosis: EDEMA[ICD9: 782.3] Tessie Motta MD [facility] CPT-4: 73736 02/27/2012 ([id number]) 21828 EST. PATIENT, LEVEL IV Diagnosis: CELLULITIS OF FOOT[ICD9: 682.7] Diagnosis: DIABETES TYPE II[SNOMED: 252753490] Diagnosis: EDEMA[ICD9: 782.3] Tessie Motta MD [facility] CPT-4: 19749 02/15/2012 ([id number]) 22436 EST. PATIENT, LEVEL IV Diagnosis: EDEMA[ICD9: 782.3] Diagnosis: ESSENTIAL HYPERTENSION[SNOMED: 67128789] Diagnosis: ACUTE SINUSITIS[ICD9: 461.9] Diagnosis: Dysuria[ICD9: 788.1] Tessie Motta MD [facility] CPT-4: 84628 02/01/2012 ([id number]) 16579 EST. PATIENT, LEVEL IV Diagnosis: DIABETES TYPE II[SNOMED: 743884502] Diagnosis: Diverticulitis[ICD9: 562.11] Tessie Motta MD [facility] CPT- 4: 03191 12/14/2011 ([id number]) 78411 EST. PATIENT, LEVEL IV Diagnosis: Nausea vomiting and diarrhea[ICD9: 787.01] Diagnosis: ESSENTIAL HYPERTENSION[SNOMED: 91128274] Diagnosis: DM W/O COMPLICATION TYPE II, UNCONTROLLED[SNOMED: 42352672] Tessie Motta MD [facility] CPT-4: 72495 11/30/2011 ([id number]) 37625 EST. PATIENT, LEVEL IV Diagnosis: ESSENTIAL HYPERTENSION[SNOMED: 26960558] Diagnosis: DIABETES TYPE II[SNOMED: 571067796] Diagnosis: COUGH[ICD9: 786.2] Tessie Motta MD, [facility] CPT-4: 97984 11/17/2011 ([id number]) Patient admitted to the hospital from clinic (NO CHARGE) Diagnosis: Tachycardia[ICD9: 785.0] Diagnosis: Dyspnea[ICD9: 786.09] Diagnosis: Wheezing[ICD9: 786.07] Diagnosis: FALL AGAINST OBJECT[ICD9: E888.1] Diagnosis: ANXIETY STATE[ICD9: 300.00] Diagnosis: ESSENTIAL HYPERTENSION[SNOMED: 76892818] Diagnosis: Chronic depression[ICD9: 311] Diagnosis: Diabetes mellitus type 2, uncontrolled[SNOMED: 51247553] Tessie Motta MD, [facility] CPT-4: 94710L 11/03/2011 ([id number]) 57836 EST. PATIENT, LEVEL IV Diagnosis: DIABETES TYPE II[SNOMED: 543012695] Diagnosis: ANXIETY STATE[ICD9: 300.00] Diagnosis: DEPRESSIVE DISORDER NEC[ICD9: 311] Diagnosis: Ulcer of toe[ICD9: 707.15] Tessie Motta MD, [facility] CPT- 4: 35229 10/24/2011 ([id number]) 54362 EST. PATIENT, LEVEL IV Diagnosis: EDEMA[ICD9: 782.3] Diagnosis: ESSENTIAL HYPERTENSION[SNOMED: 07877982] Diagnosis: ANXIETY STATE[ICD9: 300.00] Tessie Motta MD, [facility] CPT- 4: 78188 09/26/2011 00391 EST. PATIENT, LEVEL IV Diagnosis: EDEMA[ICD9: 782.3] Diagnosis: ESSENTIAL HYPERTENSION[SNOMED: 49893319] Rika Motta MD, [facility] CPT-4: 86422 09/20/2011 ([id number]) 63663 EST. PATIENT, LEVEL IV Diagnosis: ACUTE SINUSITIS[ICD9: 461.9] Diagnosis: Allergic rhinitis[ICD9: 477.9] Diagnosis: Cough[ICD9: 786.2] Tessie Motta MD, [facility] CPT-4: 97730 09/01/2011 ([id number]) 96189 EST. PATIENT, LEVEL IV Diagnosis: Chronic sinusitis[ICD9: 473.9] Diagnosis: Anxiety, generalized[ICD9: 300.02] Tessie Motta MD, [facility] CPT-4: 67577 08/15/2011 22265 EST. PATIENT, LEVEL IV Diagnosis: ACUTE SINUSITIS[ICD9: 461.9] Diagnosis: Tachycardia[ICD9: 785.0] Diagnosis: Anxiety[ICD9: 300.00] Diagnosis: Dehydration[ICD9: 276.51] Diagnosis: Sciatica[ICD9: 724.3] Tessie Motta MD, [facility] CPT-4: 73565 08/09/2011 47002 EST. PATIENT, LEVEL IV Diagnosis: DIABETES TYPE II[SNOMED: 054918417] Diagnosis: Sciatica[ICD9: 724.3] Diagnosis: Yeast infection[ICD9: 112.9] Tessie Motta MD, [facility] CPT- 4: 62056 08/01/2011 ([id number]) 22781 EST. PATIENT, LEVEL IV Diagnosis: DIABETES TYPE II[SNOMED: 880467158] Diagnosis: ACUTE MAXILLARY SINUSITIS[ICD9: 461.0] Diagnosis: Fibromyalgia[ICD9: 729.1] Tessie Motta MD, [facility] CPT-4: 52138 06/20/2011 15631 EST. PATIENT, LEVEL IV Diagnosis: ESSENTIAL HYPERTENSION[SNOMED: 26436456] Diagnosis: DIABETES TYPE II[SNOMED: 280287072] Diagnosis: ACUTE MAXILLARY SINUSITIS[ICD9: 461.0] Tessie Motta MD, [facility] CPT-4: 44664 04/18/2011 Plan of Care Planned Activity Notes [...] verbalized understanding. 04/27/2018 Appointment: Rika Bello WPtel: [phone] (30 min) Complex 04/27/2018 Patient Education: Patient Medication Summary Completed 04/27/2018 Appointment: Rika Bello WPtel: [phone] (15 min) Moderate 04/24/2018 Appointment: Nurse Visit [...] and return Monday for removal of IPRO Tohkfcs-kedflbtxke-bp changes in medications-recommend counseling-patient refuses Weakness-patient is deconditioned-refuses PT -recommend patient start walking more 04/10/2018 Appointment: Rika Bello WPtel: [phone] (15 min) Moderate 04/10/2018 Patient Education: Patient Medication Summary Completed 04/10/2018 Appointment: Arlette Skelton WPtel: [address] [place], [place] [phone] (15 min) Moderate 03/21/2018 Appointment: Rika Bello WPtel: [address] [place], [place] [phone] (30 min) Complex 03/20/2018 Visit Plan: Hypertension [...] as directed 03/12/2018 Appointment: Rika Bello WPtel: [phone] [phone] [place] (15 min) Moderate 03/12/2018 Patient Education: Patient Medication Summary Completed 03/12/2018 Patient Education: Back Pain Completed 03/12/2018 Appointment: Rika Bello WPtel: [phone] [phone] [place] (30 min) Complex 03/08/2018 Appointment: Lab [...] next refill 02/20/2018 App[facility]ment: [phone] [place] (15 min) Moderate 02/20/2018 Patient Education: Patient Medication Summary Completed 02/20/2018 Patient Education: Back Pain Completed 02/20/2018 Patient Education: Patient Medication Summary Completed 02/20/2018 Care Plan: Iron Pending 02/20/2018 Appointment: [phone] [place] (30 min) Complex 02/19/2018 Appointment: Rika Bello WPtel: [phone] [phone] [place] (15 min) Moderate 02/01/2018 Visit Plan: UA negative -no culture indicated 12/14/2017 Appointment: Lab Draw 12/14/2017 Patient Education: Patient Medication Summary Completed 12/14/2017 Visit Plan: Dysuria-urinary incontinence-culture urine HTN- elevated today-monitor at home -follow up with quantitative researcher 11/27/2017 Appointment: [phone] (15 min) Moderate 11/27/2017 Patient Education: [...] Completed 10/27/2017 Care Plan: SCREENINGMAMMOGRAPHYDIGITAL LOINC : 00699-4 Pending 10/27/2017 Appointment: Arlette Skelton WPtel: [phone] [phone] [place] (15 min) Moderate 10/03/2017 Appointment: Arlette Skelton WPtel: [phone] [phone] [place] (15 min) Moderate 10/02/2017 Appointment: Rika Bello WPtel: [phone] [phone] [place] (30 min) Complex 09/29/2017 Visit Plan: [...] acutely worsened. 09/27/2017 Appointment: [facility] Skelton [facility]el[phone] [place] (30 min) Complex 09/27/2017 Patient Education: Patient Medication Summary Completed 09/27/2017 Care Plan: CT HEAD/BRAIN W/O DYE LOINC : 00352-1 Pending 09/27/2017 Visit Plan: DM-patient noncompliant with [...] over- medication. 09/15/2017 Appointment: Rika Bello WPtel: [phone] [phone] (30 min) Complex 09/15/2017 Patient Education: Patient Medication Summary Completed 09/15/2017 Appointment: Rika Bello WPtel: [phone] [phone] [place] (30 min) Complex 09/12/2017 Appointment: Rika Bello WPtel: [phone] [phone] (30 min) Complex 09/07/2017 Visit Plan: Nbx-qslloechge-hk changes Anemia-check cbc today Dental infection-on clindamycin per Dr Bryant-start probiotics Also needs to monitor blood sugars closely 08/18/2017 Appointment: Rika Bello WPtel: [phone] [id number] [place] (30 min) Complex 08/18/2017 Patient Education: [...] resolve 08/03/2017 Appointment: Rika Bello WPtel: [phone] [id number] [place] (30 min) Complex 08/03/2017 Patient Education: Patient [...] worsen 07/27/2017 App[facility]ment: [id number] [place] (30 min) Complex 07/27/2017 Patient Education: [...] in medications 06/13/2017 Appointment: Tessie Motta WPtel: [phone] [facility] [address] (15 min) Moderate 06/13/2017 Patient Education: Patient Medication Summary Completed 06/13/2017 Visit Plan: Dental abscess - will send RX - pt is to keep her appointment with her dentist - pt is to notify clinic if symptoms do not improve, if they worsen, or with any other acute changes, questions, or concerns. 04/21/2017 Appointment: Arlette Skelton [facility]Ptel: [id number] (30 min) Complex 04/21/2017 Patient Education: [...] Q HS RESCHEDULE APPT WITH DR ASPEN HoUbjklcmld-yqxpfrszr-gg for bactroban ointment provided and instructed on use SNG-ceuekisiae-lf change in medications Mildly elevated liver enzymes-discussed with Dr motta-suspect due to gabapentin-will monitor levels Gait instability-again recommend patient use walker as well as PT 04/18/2017 Appointment: Rika Bello WPtel: [address] [place], [place] [phone] [place] [address] (30 min) Complex 04/18/2017 Patient Education: Patient [...] become less controlled. Low potassium- check labs ALM-dmktwsqaaw-od changes Afib-check digoxin level with labs Abdominal [...] become less controlled. Low potassium- check labs KSM-gmuobwaulv-bs changes Afib-check digoxin level with labs Abdominal pain-refill levsin for prn use -call if pain uncontrolled 03/27/2017 Appointment: Rika Bello WPtel: [address] [place], [place] [phone] [place] [address] (30 min) Complex 03/27/2017 Patient Education: Patient Medication Summary Completed 03/27/2017 Appointment: Rika Bello WPtel: [address] [place], [place] [id number] (30 min) Complex 03/24/2017 Visit Plan: Hypertension - well controlled - continue with current medications, continue with no added salt diet. Pt has been encouraged to exercise daily. The pt has been advised to call the office if there are any acute concerns about change in blood pressure readings at home. DM-uncontrolled- discussed strict diet and exercise with patient Low vhypqztdk-cjbdmels-igyyplox to monitor Abd mfaw-skzxjnki-vf changes 02/27/2017 Appointment: Rika Bello WPtel: [phone] [phone] (30 min) Complex 02/27/2017 Patient Education: Patient [...] regimen. 02/21/2017 Appointment: Rika Bello WPtel: [phone] [phone] (30 min) Complex 02/21/2017 Patient Education: Patient Medication Summary Completed 02/21/2017 Appointment: Rika Bello WPtel: [phone] [phone] (30 min) Complex 02/20/2017 Visit Plan: Generalized [...] on Monday02/17/2017 Appointment: Rika Bello WPtel: [phone] [phone] (30 min) Complex 02/17/2017 Patient Education: Patient Medication Summary Completed 02/17/2017 Visit Plan: COPD-recent hospitalization with pneumonia- symptoms improved-discussed continuous oxygen use at home-appt with Dr Odonnell tomorrow Afib-check digoxin level-patient just finished zpack Diarrhea-continue probiotics-check stool if diarrhea persists DM-bring log to next appt 02/13/2017 Appointment: Rika Bello WPtel: [address] [place], [place] [phone] (30 min) Complex 02/13/2017 Patient Education: Patient Medication Summary Completed 02/13/2017 Patient Education: Hypertension Completed 02/13/2017 Visit Plan: DM-very uncontrolled-refer to Dr Raines for management RIght shoulder and arm pain-fell 5 days ago-xray shoulder and arm Chronic sinusitis-RX for Dr Cervantes's compound gentamicin nasal spray 01/30/2017 Appointment: Rika Bello WPtel: [address] [place], [place] [phone] (30 min) Complex 01/30/2017 Patient Education: Patient Medication Summary Completed 01/30/2017 Care Plan: Referral Order SNOMED-CT : 464530794 Pending 01/30/2017 Visit Plan: Hypertension - well [...] every night DM-check Hgb A1C Hypothyroidism-check level Gllxtpk-ljsjogcvpl-pir well controlled- increase cymbalta-recommend counseling 01/16/2017 Appointment: Rika Bello WPtel: [address] [place], [place] [phone] (30 min) Complex 01/16/2017 Patient Education: Patient Medication Summary Completed 01/16/2017 Appointment: Rika Bello WPtel: [address] [place], [place] [phone] (30 min) Complex 01/10/2017 Visit Plan: Sinusitis [...] concerns. 12/13/2016 Appointment: Ar[facility] Skelton [facility]Ptel: [phone] (30 min) Complex 12/13/2016 Patient Education: [...] completely heal. 11/11/2016 Appointment: Rika Bello WPtel: [address] [place], [place] [phone] (30 min) Complex 11/11/2016 Patient Education: Patient Medication Summary Completed 11/11/2016 Care Plan: BMI Above normal followup SELF-MGMT EDUC & TRAIN 1 PT Pending 2016 Appointment: Rika Bello WPtel: [address] [place], [place] [phone] (30 min) Complex 11/08/2016 Visit Plan: Shingles-rash scabbed-no further treatment indicated-patient to call if pain uncontrolled N/V-check labs including UA DM- check labs today Thrush-RX for nystatin 10/28/2016 Appointment: Rika Bello WPtel: [address] [place], [place] [phone] (30 min) Complex 10/28/2016 Patient Education: Patient Medication Summary Completed 10/28/2016 Patient Education: Obesity Completed 10/28/2016 Appointment: Rika Bello WPtel: [address] [place], [place] [phone] (30 min) Complex 10/25/2016 Appointment: Lab Draw 10/21/2016 Patient Education: Patient Medication Summary Completed 10/21/2016 Visit Plan: Right knee pain-patient to schedule appt with Dr Allison Garcia-right arm-concerned for shingles-RX for acyclovir provided and instructed on use-call if symptoms do not resolve or if any worse. 10/13/2016 Appointment: Rika Bello WPtel: [address] [place], [place] [phone] (30 min) Complex 10/13/2016 Patient Education: Patient Medication Summary Completed 10/13/2016 Appointment: Rika Bello WPtel: [address] [place], [place] [phone] (30 min) Complex 10/11/2016 Appointment: Rika Bello WPtel: [address] [place], [place] [phone] [facility] - Annual Wellness Visit 10/04/2016 Visit [...] fall 5/3-xray lumbar spine Right knee pain/swelling-fell 5/- xray knee-recommend patient use walker at all times Pain uncontrolled-change to percocet as directed. 09/23/2016 Appointment: Rika Bello WPtel: [address] [place], [place] [phone] (15 min) Moderate 09/23/2016 Patient Education: Patient [...] 09/13/2016 Care Plan: Referral Order SNOMED-CT : 204176012 Pending 09/13/2016 Appointment: Rika Bello WPtel: [address] [place] [phone] [place] (30 min) Complex 09/09/2016 Appointment: Rika Bello WPtel: [phone] [phone] [place] (30 min) Complex 09/08/2016 Visit Plan: Hypertension [...] CBC 08/09/2016 Appointment: Rika Bello WPtel: [phone] (30 min) Complex 08/09/2016 Patient Education: [...] control. Yeast infection -rx for nystatin powder MQFC-rpywvzlyl-iphpum pneumonia -afib-patient is oxygen dependent due to severely compromised pulmonary and cardiac systems-will send orders to [facility] to continue oxygen 07/26/2016 Visit Plan: [...] control. Yeast infection -rx for nystatin powder PSOB-lcddgldsg-szaoqc pneumonia -afib-patient is oxygen dependent due to severely compromised pulmonary and cardiac systems-will send orders to [facility] to continue oxygen 07/26/2016 Visit Plan: [...] control. Yeast infection -rx for nystatin powder YODA-lzimvfstu-ordbea pneumonia -afib-patient is oxygen dependent due to severely compromised pulmonary and cardiac systems-will send orders to [facility] to continue oxygen 07/26/2016 Appointment: Rika Bello WPtel: [phone] [phone] [place] (30 min) Complex 07/26/2016 Patient Education: Patient Medication Summary Completed 07/26/2016 Appointment: Rika Bello WPtel: [phone] [phone] [place] (30 min) Complex 07/22/2016 Appointment: Rika Bello WPtel: [phone] [phone] [place] (30 min) Complex 07/18/2016 Appointment: Rika Bello WPtel: [phone] [phone] [place] (30 min) Complex 07/01/2016 Appointment: Lab Draw 06/24/2016 Patient Education: Patient Medication Summary Completed 06/24/2016 Appointment: Rika Bello WPtel: [phone] [place] (30 min) Complex 2016 Visit [...] Obesity Completed 05/24/2016 Appointment: Rika Bello WPtel: [phone] (30 min) Complex 05/17/2016 Visit Plan: [...] glucose control. 04/19/2016 Appointment: Rika Bello WPtel: [phone] (30 min) Complex 04/19/2016 Patient Education: Patient Medication Summary Completed 04/19/2016 Patient Education: Obesity Completed 04/19/2016 Appointment: Rika Bello WPtel: [phone] (30 min) Complex 04/18/2016 Visit Plan: [...] to allow for greater blood glucose control. PYW-wjwrrmftca-yx changes in medications at this time. Dysuria-UA negative-needs pelvic exam due to pt c/o vaginal discharge 04/11/2016 Appointment: Rika Bello WPtel: [phone] (30 min) Complex 04/11/2016 Patient Education: Patient Medication Summary Completed 04/11/2016 Patient Education: Obesity Completed 04/11/2016 Appointment: Rika Bello WPtel: [phone] [phone] (30 min) Complex 04/08/2016 Visit Plan: Chronic [...] peripheral edema. 03/11/2016 Appointment: Rika Bello WPtel: [phone] (30 min) [facility] 03/11/2016 Patient Education: Patient Medication Summary [...] breath 02/26/2016 Appointment: Rika Bello WPtel: [phone] (30 min) Complex 02/26/2016 Patient Education: Patient Medication Summary Completed 02/26/2016 Appointment: Rika Bello WPtel: [address] [place], [place] [phone] (30 min) Complex 02/25/2016 Appointment: Rika Bello WPtel: [address] [place], [place] [phone] (30 min) Complex 02/23/2016 Appointment: Lab Draw [...] to mold 02/02/2016 Appointment: Rika Bello WPtel: [address] [place], [place] [phone] (30 min) Complex 02/02/2016 Patient Education: Patient Medication Summary Completed 02/02/2016 Appointment: Tessie Motta WPtel: [address] [place], [place] [phone] (15 min) Moderate 01/21/2016 Appointment: Rika Bello WPtel: [address] [place], [place] [phone] (30 min) Complex 01/14/2016 Visit Plan: Hypertension [...] Patient Medication Summary Completed 12/17/2015 Visit Plan: Cxddyau-gfdzzfvjg-igxj head injury on 12/05-did not go to ER-patient sent for STAT CT scan of head-schedule appt with Dr Dyer Adrenal insufficiency-patient suddenly stopped prednisone-instructed patient to restart and taper prednisone as directed Rib hukc-iqncs-uswstg fall-xray ribs 12/08/2015 Appointment: Ace Rika WPtel: [phone] [phone] (15 min) Moderate 12/08/2015 Appointment: Ace Rika WPtel: [phone] [phone] (30 min) Complex 12/08/2015 Patient Education: Patient Medication Summary Completed 12/08/2015 Care Plan: COMPLETE CBC AUTOMATED LOINC : 80242-1 Pending 12/08/2015 Visit Plan: Hypertension - well [...] 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 09/29/2015 Appointment: Rika Bello WPtel: [phone] [phone] MCR - Welcome to Medicare visit 09/29/2015 Patient Education: Patient Medication Summary Completed 09/29/2015 Patient Education: Obesity Completed 09/29/2015 Care Plan: Referral Order SNOMED-CT : 664472227 Pending 09/29/2015 Care Plan: BMI Above normal [...] for weight check. 08/10/2015 Appointment: UDAY - Welisaias to Medicare visit 08/10/2015 Patient Education: Patient [...] min) Complex 05/05/2015 Appointment: Rika Bello WPtel: [phone] (30 min) Complex 04/27/2015 Visit Plan: [...] Hypertension Completed 03/03/2015 Appointment: Rika Bello WPtel: [phone] [phone] [place] (30 min) Complex 02/24/2015 Appointment: (30 min) Complex 01/29/2015 Appointment: Tessie Motta WPtel: [phone] [facility] [place] (15 min) Moderate 01/22/2015 Visit Plan: Blister of right lower leg-fluids removed with #27 gauze needle and compression dressing applied-refer to wound care for evaluation and management-patient is at high risk of developing large ulcer due to diabetes, noncompliance and poor hygiene. Rash right leg-start oral abx and bactroban as directed Wjnzd-nokdlrptuqqn-yls markie wraps, elevate leg, and again instructed [...] eating out. 01/01/2015 Appointment: Tessie Motta WPtel: [facility] (15 min) Moderate 01/01/2015 Patient Education: Patient [...] Care Plan: COMPLETE CBC AUTOMATED LOINC : 78454-2 Ordered 11/04/2014 Care Plan: URINALYSIS NONAUTO W/O SCOPE LOINC : 04714-7 Ordered 11/04/2014 Appointment: Follow up 10/07/2014 Visit Plan: Edema - pt has been advised to elevate legs to prevent dependent edema, compression has been recommended to help to naturally decrease peripheral edema. Diuretic use has been discussed and pt has been instructed in appropriate use of such medication as necessary to further attempt to reduce peripheral edema. Cysrhsgoar-uwgmaqck-qp change in treatment- continue compression hose-decrease salt/sodium in diet-call if symptoms worsen or do not resolve Wgbkrsvko-xwuaylu-aickpxgh nasonex to twice daily as directed 09/08/2014 [...] they worsen. 06/12/2014 Appointment: Rika Bello WPtel: [facility]0 [phone] [place] [address] Follow up 06/12/2014 Patient Education: Patient Medication Summary Completed 06/12/2014 Patient Education: .Amazing charts Exercise for Sciatica Completed 06/12/2014 Care Plan: COMPLETE CBC AUTOMATED LOINC : 87025-4 Ordered 06/12/2014 Visit Plan: Cellulitis - continue [...] Summary Completed 05/26/2014 Appointment: Tessie Motta WPtel: [phone] Lab Draw 04/21/2014 Patient Education: Patient Medication [...] home. 02/13/2014 Appointment: Tessie Motta WPtel: [phone] Follow up 02/13/2014 Patient Education: Patient Medication [...] daily. 01/27/2014 Appointment: Tessie Motta WPtel: [phone] Follow up 01/27/2014 Patient Education: Patient Medication Summary Completed 01/27/2014 Appointment: Rika Bello WPtel: [phone] [place] Follow up 01/02/2014 Visit Plan: Open wound of lar-yqaqunqn-ywizjtwj with dressing changes as directed-call for increase [...] Summary Completed 12/26/2013 Appointment: Tessie Motta WPtel: [facility]5 [facility] [address] Follow up 12/24/2013 Visit Plan: Open wound of right leg-debrided today in the office-instructed on wound care-follow up as directed. Call with any questions, concerns, or worsening symptoms. Culture of wound today in the office-RX for abx sent to patient's pharmacy and instructed on use. Patient verbalized understanding of plan. 12/12/2013 Appointment: Rika Bello WPtel: [phone] [phone] Other 12/12/2013 Patient Education: Patient Medication Summary Completed 12/12/2013 Appointment: Tessie Motta WPtel: [facility] Follow up 11/20/2013 Visit Plan: negative ua 11/18/2013 Appointment: Tessie Motta WPtel: [facility]6 [facility] [address] Lab Draw 11/18/2013 Patient Education: Patient Medication [...] Completed 11/14/2013 Visit Plan: Open wound right squ-zgyosh-pqcv if opens up Edema - pt has been advised to elevate legs to prevent dependent edema, compression has been recommended to help to naturally decrease peripheral edema. Diuretic use has been discussed and pt has been instructed in appropriate use of such medication as necessary to further attempt to reduce peripheral edema. 10/21/2013 Appointment: Rika Bello WPtel: [facility]5 [phone] Follow up 10/21/2013 Patient Education: Patient Medication Summary Completed 10/21/2013 Appointment: Rika Bello WPtel: [facility]5 [phone] Follow up 10/17/2013 Appointment: Tessie Motta WPtel: [facility]5 [facility] [address] Follow up 10/10/2013 Visit Plan: Hypertension - [...] for pain. 10/03/2013 Appointment: Rika Bello WPtel: [facility]5 [phone] Follow up 10/03/2013 Patient Education: Patient Medication [...] of plan. 09/23/2013 Appointment: Tessie Motta WPtel: [facility]5 [facility] [address] [place] Nurse Visit 09/23/2013 Patient Education: Patient [...] 2 WEEKS. 09/20/2013 Appointment: Rika Bello WPtel: [address] [place], [place] [phone] Follow up 09/20/2013 Patient Education: Patient Medication Summary Completed 09/20/2013 Patient Education: Hypertension Completed 09/20/2013 Appointment: Tessie Motta WPtel: [address] [place], [place] [phone] [place] Follow up 09/16/2013 Visit Plan: Edema [...] verbalized understanding. 09/10/2013 Appointment: Rika Bello WPtel: [phone] [facility] [place] [address] Other 09/10/2013 Patient Education: Patient Medication Summary Completed 09/10/2013 Appointment: Rika Bello WPtel: [phone] [facility] [place] [address] Follow up 09/02/2013 Visit Plan: Diabetes Mellitus [...] peripheral edema. 08/19/2013 Appointment: Rika Bello WPtel: [phone] [facility] [place] [address] Other 08/19/2013 Patient Education: Patient Medication Summary [...] as scheduled 08/01/2013 Appointment: Rika Bello WPtel: [phone] [place] Follow up 08/01/2013 Patient Education: Patient Medication Summary Completed 08/01/2013 Appointment: Rika Bello WPtel: [phone] [phone] [place] Follow up 07/25/2013 Appointment: Tessie Motta WPtel: [facility] [place] Follow up 07/25/2013 Visit Plan: Bister of foot-dressing changes discussed with patient and instructed her to keep her foot clean and dry-STOP WEARING FLIP FLOPS as they are causing friction over blistered area. Keep follow up appointment as scheduled. Call for redness, drainage or other s/s of infection. 07/19/2013 Appointment: Rika Bello WPtel: [address] [place] [address] Other 07/19/2013 Patient Education: Patient Medication Summary [...] peripheral edema. 07/15/2013 Appointment: Rika Bello WPtel: [address] [place] [address] Other 07/15/2013 Patient Education: Patient Medication Summary Completed 07/15/2013 Patient Education: Hypertension Completed 07/15/2013 Appointment: Rika Bello WPtel: [address] [place] [address] Follow up 07/01/2013 Appointment: Rika Bello WPtel: [address] [place], [place] [phone] Lab Draw 06/28/2013 Patient Education: Patient Medication [...] 900mg tid. 06/27/2013 Appointment: Tessie Motta WPtel: [facility] Other 06/27/2013 Patient Education: Patient Medication Summary Completed 06/27/2013 Appointment: Tessie Motta WPtel: [phone] [facility] [address] Other 06/24/2013 Visit Plan: Diabetes Mellitus - [...] THE AFTERNOON. 06/10/2013 Appointment: Tessie Motta WPtel: [facility]9 [facility] [address] Follow up 06/10/2013 Patient Education: Patient Medication Summary Completed 06/10/2013 Appointment: Tessie Motta WPtel: [facility]3 [facility] [address] Follow up 06/06/2013 Visit Plan: Sinusitis - [...] acutely worsen. 05/07/2013 Appointment: Tessie Motta WPtel: [address] [place], [place] [phone] Follow up 05/07/2013 Patient Education: Patient Medication Summary Completed 05/07/2013 Appointment: Tessie Motta WPtel: [address] [place], [place] [phone] Follow up 04/30/2013 Visit Plan: Edema - [...] acute changes. 04/16/2013 Appointment: Tessie Motta WPtel: [facility]1 [facility] [address] Follow up 04/16/2013 Patient Education: Patient Medication Summary Completed 04/16/2013 Appointment: Tessie Motta WPtel: [phone] [facility] [address] Follow up 04/04/2013 Visit Plan: Lumbago-continue physical [...] edema. 03/21/2013 Appointment: Rika Bello WPtel: [phone] [phone] Follow up 03/21/2013 Patient Education: Patient Medication Summary Completed 03/21/2013 Appointment: Tessie Motta WPtel: [facility]5 [facility] [address] Follow up 03/20/2013 Appointment: Tessie Motta WPtel: [address] [place], [place] [phone] Follow up 03/05/2013 Visit Plan: Edema-significantly improved- [...] controlled. 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 02/04/2013 Appointment: Tessie Motta WPtel: [facility]5 [facility] [address] Follow up 02/04/2013 Patient Education: Patient Medication [...] not improve. 01/17/2013 Appointment: Rika Bello WPtel: [address] [place], [place] [phone] Follow up 01/17/2013 Patient Education: Patient Medication Summary Completed 01/17/2013 Patient Education: Hypertension Completed 01/17/2013 Appointment: Tessie Motta WPtel: [address] [place], [place] [phone] [place] Follow up 01/16/2013 Appointment: Tessie Motta WPtel: [address] [place], [place] [address] Follow up 01/10/2013 Appointment: Rika Bello WPtel: [address] [place], [place] [phone] [place] Lab Draw 01/01/2013 Patient Education: Patient [...] Hypothyroidism-check labs 12/31/2012 Appointment: Rika Bello WPtel: [facility]5 [phone] Follow up 12/31/2012 Appointment: Rika Bello WPtel: [phone] [phone] Sick 12/31/2012 Patient Education: Patient Medication Summary [...] Check labs. 12/20/2012 Appointment: Rika Bello WPtel: [address] [place], [place] [phone] Sick 12/20/2012 Patient Education: Patient Medication Summary Completed 12/20/2012 Patient Education: Hypertension Completed 12/20/2012 Appointment: Tessie Motat WPtel: [address] [place], [place] [phone] Lab Draw 11/05/2012 Patient Education: Patient Medication Summary Completed 11/05/2012 Visit Plan: Bronchitis - acute case of bronchitis identified. Pt has been given antibiotics, breathing treatments as appropriate, and pt has been instructed to call if symptoms are not improved, or if symptoms acutely worsen. 10/29/2012 Appointment: Tessie Motta WPtel: [address] [place], [place] [phone] Sick 10/29/2012 Patient Education: Patient Medication Summary Completed 10/29/2012 Visit Plan: Joint Injection-left SI joint - Pt was given post - injection instructions. The pt has been advised to use antiinflammatories post injection today, ice to the injected site, call if redness, warmth, or increased pain occurs at the site of injection. 09/21/2012 Appointment: Rika Bello WPtel: [facility]5 [phone] Follow up 09/21/2012 Patient Education: Patient Medication [...] control. 09/06/2012 Appointment: Tessie Motta WPtel: [phone] [facility] [address] Follow up 09/06/2012 Patient Education: Patient Medication [...] readings are starting to become less controlled. Cekesksr-zoclxvls-anquuydn probiotic-continue to hold metformin and repeat labs before appt in 2 weeks. Call for abd pain, worsening diarrhea, or other concerns. 08/23/2012 Appointment: Tessie Motta WPtel: [phone] [facility] [address] Follow up 08/23/2012 Patient Education: Patient Medication [...] PLAN. 08/13/2012 Appointment: Rika Bello WPtel: [phone] [facility] [place] Follow up 08/13/2012 Patient Education: [...] acute concerns. 08/07/2012 Appointment: Rika Bello WPtel: [facility] [place] Other 08/07/2012 Patient Education: Patient Medication Summary Completed 08/07/2012 Patient Education: Hypertension Completed 08/07/2012 Visit Plan: UA-sent for culture 07/19/2012 Appointment: Rika Bello WPtel: [facility] [id number] [place] Lab Draw 07/19/2012 Patient Education: [...] WPtel: [phone] [id number] [facility] 07/06/2012 Patient Education: Patient Medication Summary [...] today 06/07/2012 Appointment: Tess[facility]ta [phone] Follow up 06/07/2012 Appointment: Tessie Motta WPtel: [facility] Follow up 06/07/2012 Patient Education: Patient Medication [...] days. 05/28/2012 Appointment: Rika Bello WPtel: [phone] [id number] Follow up 05/28/2012 Patient Education: Patient [...] edema. 05/17/2012 Appointment: Rika Bello WPtel: [phone] [id number] [facility] Follow UP 05/17/2012 Patient Education: Patient Medication [...] office 05/02/2012 Appointment: Tessie Motta [facility]Ptel: [phone] [facility] Follow up 05/02/2012 Patient Education: Patient Medication Summary Completed 05/02/2012 Patient Education: Hypertension Completed 05/02/2012 Appointment: Tessie Motta [facility]el: [phone] [facility] Follow up 04/25/2012 Visit Plan: Sinusitis - [...] acute concerns. 04/10/2012 Appointment: Rika Bello WPtel: [address] [place], [place] [id number] [place] [address] Follow up 04/10/2012 Patient Education: Patient Medication [...] I&D on Monday02/27/2012 Appointment: Rika Bello WPtel: [address] [place], [place] [id number] [place] [address] Follow up 02/27/2012 Patient Education: Patient Medication [...] to thighs. 02/15/2012 Appointment: Rika Bello WPtel: [facility]4 [id number] Follow up 02/15/2012 Patient Education: Patient Medication [...] toes to thighs. RX sent to patient's [facility]. Chest xray at the hospital as well. [...] urine. 02/01/2012 Appointment: Rika Bello WPtel: [phone] [id number] [place] Other 02/01/2012 Patient Education: Patient Medication [...] buttocks 12/14/2011 Appointment: Tessie Motta [facility]Ptel: [phone] [facility] Other 12/14/2011 Patient Education: Patient Medication Summary Completed 12/14/2011 Appointment: Kalia Tessie [facility]Ptel: [phone] [facility] Follow up 12/08/2011 Visit Plan: N/V/D - [...] controlled. 11/30/2011 Appointment: Rika Bello WPtel: [phone] [id number] Other 11/30/2011 Patient Education: Patient Medication [...] pain. 11/17/2011 Appointment: Tessie Motta WPtel: [phone] [facility] [address] Other 11/17/2011 Patient Education: Patient Medication Summary [...] - uncontrolled - will consult her primary quantitative researcher for assistance with control her her heart rate. Ulcer of toe - continue with topical antibiotics as previously directed, return to clinic as previously directed, call for acute change in symptoms, worsening redness, warmth, discharge. 11/03/2011 Appointment: Tessie Motta WPtel: [phone] [facility] Other 11/03/2011 Patient Education: Patient Medication Summary [...] warmth, discharge. 10/24/2011 Appointment: Tessie Motta WPtel: [phone] [facility] Other 10/24/2011 Patient Education: Patient Medication Summary [...] with lymphoma. 09/26/2011 Appointment: Rika Bello WPtel: [phone] [phone] Other 09/26/2011 Patient Education: Patient Medication [...] Hypertension Completed 2011 Appointment: Tessie Motta WPtel: [address] [place] [address] Other 09/05/2011 Visit Plan: Sinusitis - Pt [...] the medication. 09/01/2011 Appointment: Tessie Motta WPtel: [address] [place] [address] Other 09/01/2011 Patient Education: Patient Medication Summary Completed 09/01/2011 Visit Plan: Sinusitis - continue with ciprofloxacin and start on corcidin HBP. Anxiety - start the xanax 0.5mg 1/2 pill twice daily. 08/15/2011 Appointment: Tessie Mtota WPtel: [address] [place] [address] Other 08/15/2011 Appointment: Tessie Motta WPtel: [address] [place] [address] Other 08/15/2011 Patient Education: Patient Medication Summary [...] the hospital. 08/09/2011 Appointment: Rika Bello WPtel: [address] [place] [address] Other 08/09/2011 Patient Education: Patient Medication Summary [...] not resolve 08/01/2011 Appointment: Rika Bello WPtel: [address] [place] [address] Other 08/01/2011 Patient Education: Patient Medication Summary Completed 08/01/2011 Appointment: Rika Bello WPtel: [address] [place] [address] Other 07/26/2011 Appointment: Tessie Motta WPtel: [address] [place] [address] Other 07/18/2011 Visit Plan: Diabetes Mellitus - [...] management sparingly. 06/20/2011 Appointment: Tessie Motta WPtel: [phone] [facility] Other 06/20/2011 Patient Education: Patient Medication Summary [...] month. 04/18/2011 Appointment: Tessie Motta WPtel: [phone] Other 04/18/2011 Patient Education: Patient Medication Summary Completed 04/18/2011 Patient Education: High Blood Pressure: Essential Hypertension Completed 2010 Appointment: Tessie Motta WPtel: [phone] Other 04/12/2011 Appointment: Tessie Motta WPtel: [phone] Other 02/16/2011 Referral: Matt Pavon HPtel:[phone] Referral Initiated Referral: Yareli Raines Referral [...] Trigger point injection to left buttocks . Hypertension - well controlled - continue [...] blood glucose levels pneumovac given today . Cellulitis - culture of wound today [...] to further attempt to reduce peripheral edema. Toprol XL increased to 100mg po q [...] further attempt to reduce peripheral edema. . Cellulitis - continue with oral antibiotics as previously directed, return to clinic as previously directed, call for acute change in symptoms, worsening redness, warmth, discharge. Mtgwgdgi-vtnmmlnqzjpe-irqza labs today-patient has been given orders multiple [...] Follow up in the office as directed FOR CHOLESTEROL - THE NEW DOSE OF [...] based on previous levels of control. . Diabetes Mellitus - controlled - per [...] from 600mg tid to 900mg tid. . Ogr-eybjkbjlsu-yo changes Anemia-check cbc today Dental infection-on clindamycin per Dr Bryant-start probiotics Also needs to monitor blood sugars closely . Bister of foot-dressing changes discussed with patient and instructed her to keep her foot clean and dry-STOP WEARING FLIP FLOPS as they are causing friction over blistered area. Keep follow up appointment as scheduled. Call for redness, drainage or other s/s of infection. . Dental abscess - will send RX [...] daily and taper off as directed . Diabetes Mellitus - controlled [...] annabel to her chronic back pain. . Hypertension - well controlled - continue [...] readings are starting to become less controlled. Fvkqgmao-fiuypawv-tiygxyer probiotic-continue to hold metformin and repeat labs before appt in 2 weeks. Call for abd pain, worsening diarrhea, or other concerns. . Bronchitis - will check labs, if [...] toenail - will refer to Dr. Mejia INCREASE WATER INTAKE AND PROTEIN INTAKE CUT [...] to reduce peripheral edema. Dysuria-check UA . Hypertension - well controlled - continue with current medications, continue with no added salt diet. Pt has been encouraged to exercise daily. The pt has been advised to call the office if there are any acute concerns about change in blood pressure readings at home. XE-cquzykziawgf-souiaxbfw strict diet and exercise with patient Low uabbdobid-mkvgsohp-wmzlovbb to monitor Abd mgfa-lxwtcjud-qc changes INCREASE LEVEMIR TO 10 UNITS TWICE DAILY [...] HTN-elevated today-monitor at home -follow up with quantitative researcher . Hypertension - well controlled - continue [...] new nebulizer and supplies due to mold Pt has been instructed to stop eating [...] IN MORNING AND 20MG IN THE AFTERNOON. WOUND CARE EVALUATION KEEP BLISTER CLEAN AND [...] leg-start oral abx and bactroban as directed Stwoz-yzfrmodqwfam-etz markie wraps, elevate leg, and again instructed [...] are not controlled with the medication. . UA-sent for culture . Hlpiede-mditzfkqa-ktmy head injury on 12/05-did not go to ER-patient sent for STAT CT scan of head-schedule appt with Dr Dyer Adrenal insufficiency-patient suddenly stopped prednisone-instructed patient to restart and taper prednisone as directed Rib hcns-evtbj-nedjqe fall-xray ribs . Joint Injection-left SI joint - Pt [...] in symptoms, worsening redness, warmth, discharge. . Diabetes Mellitus - controlled - per [...] Call if symptoms do not show improvement. Labs and UA . Hypertension - well [...] as needed #60 with next refill . Open wound of mes-qjlehkjh-bbrywfkv with dressing changes as directed-call for increase [...] symptom management sparingly. . Open wound right erc-merojg-pkrv if opens up Edema - pt has been advised to elevate legs to prevent dependent edema, compression has been recommended to help to naturally decrease peripheral edema. Diuretic use has been discussed and pt has been instructed in appropriate use of such medication as necessary to further attempt to reduce peripheral edema. . ADMIT FROM CLINIC TO HOSPITAL - [...] - uncontrolled - will consult her primary quantitative researcher for assistance with control her her heart [...] with results.Patient and verbalized understanding of plan. HWF-pzejxtwfxde-jlzhu labs-monitor blood pressure and heart rate closely- recommend ER if symptoms do not improve. . Patient presented with acute symptoms of stroke. Accompanied to ER for emergent evaluation. . Patient presented with acute symptoms of stroke. Accompanied to ER for emergent evaluation. START CHECKING BLOOD SUGARS!!!! BRING LOG TO [...] in blood pressure readings at home. . ER follow up - Dr. Motta in to see pt - pt was given a script for a senior care prednisone taper - pt has not started [...] 1 week - will closely monitor pt. Take Levemir 16 units every night . [...] to allow for greater blood glucose control. XIA-ykgzqnnuxj-ej changes in medications at this time. Dysuria-UA negative-needs pelvic exam due to pt c/o vaginal discharge . Edema - pt has been advised [...] DRINKS. REPEAT LABS IN 2 WEEKS. . Diabetes Mellitus - controlled - per [...] not improve. KEEP FOLLOW UP APPOINTMENT WITH [address] mammogram appt with Dr Pavon for colonscopy [...] attempt to reduce peripheral edema. Check labs. Holter monitor x 48 hours. You will go to the heart center on August 14 at 1:30pm to have it put on. You appt here Monday is at 3:30pm. 1 liter Normal saline IV today at the hospital. Continue your blood pressure medications for the next week-except HOLD LISINOPRIL/HCTZ I sent a prescription for cipro and flagyl to [facility]. Start it today. . Sinusitis - [...] UA DM-check labs today Thrush-RX for nystatin Labs today- CBC, CMP, HgbA1C Dr. Shelley [...] Shelley for possible injections Rash-under breasts-refill nystatin [place] balm over the counter for the knee. [...] pt is to call for acute concerns. Monitor your blood pressure at home [...] xanax 0.5mg 1/2 pill twice daily. . Edema - pt has been advised to elevate legs to prevent dependent edema, compression has been recommended to help to naturally decrease peripheral edema. Diuretic use has been discussed and pt has been instructed in appropriate use of such medication as necessary to further attempt to reduce peripheral edema. Diaxqlnlri-rahralan-hn change in treatment-continue compression hose-decrease salt/sodium in diet-call if symptoms worsen or do not resolve Vhnyyudgi-hxhlguy-kybxwbmj nasonex to twice daily as directed pt [...] clinic if symptoms do not resolve . negative ua Lactobacillus 1 po twice [...] are starting to become less controlled. . UA negative CONTINUE PROBIOTICS CHECK STOOL FOR CDIFF IF [...] is stable, monitor for acute changes. . Diabetes Mellitus - controlled - per [...] for diflucan-call if symptoms do not resolve STOP THE PROBIOTICS START GAS X DULCOLAX [...] with any acute changes, questions or concerns. . UA negative -no culture indicated . [...] do not resolve or if any worse. INCREASE LEVEMIR TO 25 UNITS IN THE [...] Mejia to perform I&D on Monday . Open wound of right leg-debrided today in the office- instructed on wound care-follow up as directed. Call with any questions, concerns, or worsening symptoms. Patient verbalized understanding of plan. . Bronchitis - acute case of bronchitis identified. Pt has been given antibiotics, breathing treatments as appropriate, and pt has been instructed to call if symptoms are not improved, or if symptoms acutely worsen. . Edema - pt has been advised [...] are starting to become less controlled. . Sinusitis - Pt has acute infection [...] Pain uncontrolled-change to percocet as directed. . Hypertension - well controlled - continue [...] Q HS RESCHEDULE APPT WITH DR ASPEN HoRavwfqecv-ryibxzfio-sv for bactroban ointment provided and instructed on use UYR-knmbpdayvk-ax change in medications Mildly elevated liver enzymes-discussed with Dr motta-suspect due to gabapentin-will monitor levels Gait instability-again recommend patient use walker as well as PT Monitor you blood sugars as directed at [...] further attempt to reduce peripheral edema. . Hypertension - well controlled - continue [...] 1 week, sooner if symptoms worsen . Edema - pt has been advised [...] monitor FSBS at home, decrease eating out. . Open wound of right leg-debrided today [...] 6 hours as needed for pain. . Cellulitis - continue with oral [...] readings at home. . Diabetes Mellitus - Uncontrolled - per [...] to further attempt to reduce peripheral edema. Monitor your blood pressure at home and [...] is to call for acute concerns. . Medicare Exam - today we discussed [...] worsening of stomach upset or stomach pain. CHECK CMP TODAY . Edema - pt [...] next appointment for review. Patient verbalized understanding. d/c LEVEMIR START TOUJEO 10UNITS [...] and duoneb QID prn shortness of breath . Diabetes Mellitus - Uncontrolled - I [...] up with [facility] as scheduled d/c LEVEMIR START TOUJEO 10UNITS DAILY AT [...] your appt with her -she is a customer support specialist . Diabetes Mellitus - ucontrolled- I [...] to become less controlled. Low potassium-check labs HHK-ulkjrifvlz-is changes Afib-check digoxin level with labs Abdominal pain-refill levsin for prn use -call if pain uncontrolled . Blister of right leg-drained today in [...] WILL CALL HER WITH THE RESULTS. . DM-patient noncompliant with diet-recommend she start [...] sent to patient's pharmacy-repeat labs on Monday pt is to take lasix 40mg in [...] instability, COPD and increased risk of falls INCREASE TOPROL TO 100MG TWICE DAILY Cipro [...] the office- follow up in 10 days. CPAP NEBULIZER CHECK UA . Hypertension - [...] so tired Tachycardia-follow up with Dr Dyer Take lasix daily x 5 days Take [...] and return Monday for removal of IPRO Qzkbvhw-wgiskdkwte-id changes in medications-recommend counseling-patient refuses Weakness-patient is deconditioned-refuses PT -recommend patient start walking more . Sinusitis - Pt has acute infection [...] not improved, or if symptoms acutely worsen. d/c LEVEMIR START TOUJEO 10UNITS DAILY AT [...] and duoneb QID prn shortness of breath I sent a prescription for lasix and potassium to [facility]. Take 2 TABLETS of LASIX and 2 [...] toes to thighs. RX sent to patient's [facility]. Chest xray at the hospital as well. [...] edema. Dysuria-check UA with c&s if indicated DR Yareli Raines-you need to reschedule your appt with her -she is a customer support specialist . Diabetes Mellitus - ucontrolled- I [...] to become less controlled. Low potassium-check labs GPB-deapiqfxnu-he changes Afib-check digoxin level with labs Abdominal pain-refill levsin for prn use -call if pain uncontrolled . Diabetes Mellitus - Uncontrolled - per [...] control. 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 Diabetes Mellitus [...] control. 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 Diabetes Mellitus [...] control. 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 Edema - pt has been advised to elevate legs to prevent dependent edema, compression has been recommended to help to naturally decrease peripheral edema. Diuretic use has been discussed and pt has been instructed in appropriate use of such medication as necessary to further attempt to reduce peripheral edema. Dyspnea - recommended pt to see new billiard parlor manager when he gets to [facility] for further evaluation and work-up. refer to Dr Raines increase levemir to 50 units in the morning and 45 at bedtime x 1 week then 50units BID . DM-very uncontrolled-refer to Dr Raines for management RIght shoulder and arm pain-fell 5 days ago-xray shoulder and arm Chronic sinusitis-RX for Dr Cervantes's compound gentamicin nasal spray DX sinusitis - discussed expected course with [...] PAIN MANAGEMENT FOR INJECTIONS STOP BY [employer] [employer] FOR NEW CPAP SUPPLIES . Hypertension - [...] every night DM-check Hgb A1C Hypothyroidism-check level Zoozmil-admluvgfwg-qva well controlled-increase cymbalta-recommend counseling . Hypertension - well controlled - continue [...] rash if it does not completely heal. . Diabetes Mellitus - Uncontrolled - per [...] she needs to...RESCHEDULE APPT WITH DR RAINES DCS-fyozubwxzu-wr change in medications . Diabetes Mellitus - Uncontrolled - per [...] TODAY Right knee pain-recent fall-xray right knee CPAP NEBULIZER CHECK UA . Hypertension - [...] adjustment of insulin -patient and verbalized understanding. . Celllulitis of foot-suspect foreign body-plan to [...]
--- OUTSIDE RECORDS SUMMARY | 2018-06-04 15:09 | XMS REPORT | CCD ---
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 Unknown Has never used illegal drugs 02/11/2011 Allergies, Adverse Reactions, Alerts Substance Reaction Codes Entered Date Inactivated Date Status CODEINE RxNorm: 2670 02/11/2011 No Inactive Date Active * NO KNOWN FOOD ALLERGIES Unknown 02/01/2012 No Inactive Date Active cefdinir RxNorm: 84128 08/07/2012 No Inactive Date Active PENICILLINS Unknown [...] Start Date Stop Date Status Fill Instructions FreeStyle Test strips RxNorm: USE ONE STRIP TO CHECK GLUCOSE 4 TIMES DAILY 04/30/2018 No Stop Date Active promethazine 25 mg tablet RxNorm: 921438 Tablet(s) 1 Tablet(s) PO Q6 PRN TAKE NEEDED ONLY!!! 04/27/2018 No Stop Date Active digoxin 125 mcg tablet RxNorm: 575026 TAKE 1 TABLET BY MOUTH ONCE DAILY 04/23/2018 No Stop Date Active Lasix 40 mg tablet RxNorm: TAKE 1 TABLET BY MOUTH TWICE DAILY 04/19/2018 No Stop Date Active Vitamin D2 50,000 unit capsule RxNorm: 5388403 1 Capsule(s) PO QW 04/17/2018 06/15/2018 Active Tessalon Perles 100 mg capsule RxNorm: 007993 Capsule(s) Capsule(s) 2 Capsule(s) PO TID as needed 04/17/2018 No Stop Date Active Xanax 0.5 mg tablet RxNorm: 325317 1 Tablet(s) BID as needed 04/09/2018 05/08/2018 Active Percocet 10 mg-325 mg tablet RxNorm: 7563594 1-2 Tablet(s) PO Q6 PRN 04/05/2018 04/19/2018 Inactive colestipol 1 gram tablet RxNorm: 0387777 TAKE ONE TABLET BY MOUTH TWICE DAILY 03/30/2018 No Stop Date Active nystatin 100,000 unit/mL oral suspension RxNorm: 897577 Unit(s) 5 Milliliter(s) PO QID swish and swallow 03/21/20182017 Inactive Tessalon Perles 100 mg capsule RxNorm: 963055 Capsule(s) Capsule(s) 2 Capsule(s) PO TID as needed 03/21/2018 04/16/2018 Inactive Xanax 0.5 mg tablet RxNorm: 000746 Tablet(s) BID as needed 04/09/2018 Inactive Slow Fe 47.5 mg iron tablet,extended release RxNorm: 1 Tablet(s) PO every other day 03/12/2018 04/10/2018 Inactive Percocet 10 mg-325 mg tablet RxNorm: 0852581 1-2 Tablet(s) PO Q6 PRN 03/12/2018 03/26/2018 Inactive Slow Fe 47.5 mg iron tablet,extended release RxNorm: 1 Tablet(s) PO 3 x week 02/28/2018 03/11/2018 Inactive promethazine 25 mg tablet RxNorm: 672371 Tablet(s) 1 Tablet(s) PO Q6 PRN TAKE NEEDED ONLY!!! 02/21/2018 04/26/2018 Inactive gabapentin 600 mg tablet RxNorm: 569116 Tablet(s) TAKE ONE & ONE-HALF TABLETS BY MOUTH THREE TIMES DAILY 02/20/20182018 Active Cymbalta 60 mg capsule,delayed release RxNorm: 724064 1 Capsule(s) PO daily take with 30mg tablet 02/20/2018 08/18/2018 Active Cymbalta 30 mg capsule,delayed release RxNorm: 893195 Capsule(s) TAKE ONE CAPSULE BY MOUTH ONCE DAILY - TAKE WITH THE 60 MG DOSE FOR A TOTAL OF 90 MG 02/20/2018 08/18/2018 Active Vitamin D2 50,000 unit capsule RxNorm: 7619620 1 Capsule(s) PO QW 02/20/2018 02/19/2018 Inactive Vitamin D2 50,000 unit capsule RxNorm: 9923438 1 Capsule(s) PO QW 02/20/2018 04/16/2018 Inactive mupirocin 2 % topical ointment RxNorm: 289040 APPLY TO SORE IN BELLY BUTTON TWICE DAILY 02/15/2018 No Stop Date Active Percocet 10 mg-325 mg tablet RxNorm: 8730431 1-2 Tablet(s) PO Q6 PRN 02/14/2018 02/28/2018 Inactive Jerry Marley U-300 Insulin 300 unit/mL (1.5 mL) subcutaneous pen RxNorm: 5308488 40 Unit(s) SQ BID per dr raines 02/07/2018 03/08/2018 Inactive nystatin 100,000 unit/mL oral suspension RxNorm: 741863 5 Milliliter(s) PO QID swish and swallow 02/02/2018 02/11/2018 Inactive mupirocin 2 % topical ointment RxNorm: 566600 1 Application TOP BID 01/30/2018 02/08/2018 Inactive Tessalon Perles 100 mg capsule RxNorm: 161183 Capsule(s) 2 Capsule(s) PO TID as needed 01/23/2018 03/20/2018 Inactive Xanax 0.5 mg tablet RxNorm: 376539 Tablet(s) TAKE ONE TABLET BY MOUTH THREE TIMES DAILY NEEDED 01/17/20182017 Inactive ropinirole 1 mg tablet RxNorm: 129149 1 Tablet(s) PO BID 201705/10/2018 Active digoxin 125 mcg tablet RxNorm: 463663 1 Tablet(s) PO daily 04/22/2018 Inactive Percocet 10 mg-325 mg tablet RxNorm: 9995521 1-2 Tablet(s) PO Q6 PRN 01/04/2018 01/18/2018 Inactive Percocet 10 mg-325 mg tablet RxNorm: 1877474 1-2 Tablet(s) PO Q6 PRN 01/02/2018 01/03/2018 Inactive promethazine 25 mg tablet RxNorm: 686715 Tablet(s) 1 Tablet(s) PO Q6 PRN TAKE NEEDED ONLY!!! 01/02/2018 02/20/2018 Inactive pantoprazole 40 mg tablet,delayed release RxNorm: 685662 TAKE 1 TABLET BY MOUTH ONCE DAILY 12/25/2017 No Stop Date Active mupirocin 2 % topical ointment RxNorm: 760566 1 Application TOP BID 12/22/2017 12/31/2017 Inactive fluconazole 150 mg tablet RxNorm: 215863 1 Tablet(s) PO every other day x 3 doses 12/14/2017 12/23/2017 Inactive Percocet 10 mg-325 mg tablet RxNorm: 1609464 1-2 Tablet(s) PO Q6 PRN 12/13/2017 12/27/2017 Inactive hyoscyamine 0.125 mg sublingual tablet RxNorm: 2904676 Tablet(s) 1 Tablet(s) SL TID as needed 12/13/2017 04/11/2018 Inactive nystatin 100,000 unit/gram topical powder RxNorm: 160924 APPLY POWDER TOPICALLY 4 TIMES DAILY 12/11/2017 No Stop Date Active Xanax 0.5 mg tablet RxNorm: 167900 Tablet(s) TAKE ONE TABLET BY MOUTH THREE TIMES DAILY NEEDED 12/06/20172017 Inactive nitrofurantoin 50 mg capsule RxNorm: 951564 1 Capsule(s) PO BID 12/01/2017 11/30/2017 Inactive take probiotic BID x 7 days nitrofurantoin 50 mg capsule RxNorm: 460370 1 Capsule(s) PO BID 12/01/2017 12/07/2017 Inactive take probiotic BID x 7 days mupirocin 2 % topical ointment RxNorm: 119160 1 Application TOP BID 11/27/2017 12/06/2017 Inactive Tessalon Perles 100 mg capsule RxNorm: 630287 Capsule(s) 2 Capsule(s) PO TID as needed 11/21/2017 01/22/2018 Inactive nystatin 100,000 unit/mL oral suspension RxNorm: 544805 5 Milliliter(s) PO QID swish and swallow 11/17/2017 11/26/2017 Inactive nystatin 100,000 unit/mL oral suspension RxNorm: 307427 5 Milliliter(s) PO QID swish and swallow 11/17/2017 11/16/2017 Inactive Toprol XL 100 mg tablet,extended release RxNorm: 483023 TAKE ONE TABLET BY MOUTH TWICE DAILY 11/15/2017 No Stop Date Active ropinirole 1 mg tablet RxNorm: 983440 Tablet(s) BID 11/14/2017 01/10/2018 Inactive Diflucan 150 mg tablet RxNorm: 340296 Tablet(s) every other day 1 Tablet(s) PO every other day 11/14/2017 11/16/2017 Inactive Percocet 10 mg-325 mg tablet RxNorm: 3275931 1-2 Tablet(s) PO Q6 PRN 11/09/2017 11/23/2017 Inactive Flonase Allergy Relief 50 mcg/actuation nasal spray, suspension RxNorm: 4908677 2 [place] NASAL daily 11/06/20172017 Inactive cyclobenzaprine 10 mg tablet RxNorm: 876848 Tablet(s) TABLET(S) 1 TABLET(S) PO NEEDED TAKE 1 TABLET BY MOUTH EVERY 8 HOURS NEEDED 2017 No Stop Date Active Cymbalta 30 mg capsule,delayed release RxNorm: 589752 TAKE ONE CAPSULE BY MOUTH ONCE DAILY - TAKE WITH THE 60 MG DOSE FOR A TOTAL OF 90 MG 02/19/2018 Inactive Lantus Solostar U-100 Insulin 100 unit/mL (3 mL) subcutaneous pen RxNorm: 866050 Unit(s) SQ 35 units QAM and 55 units QHS Unit(s) SQ 10/27/2017 02/07/2018 Inactive Wants insulin pens Percocet 10 mg-325 mg tablet RxNorm: 3209907 1-2 Tablet(s) PO Q6 PRN 10/27/2017 11/08/2017 Inactive promethazine 25 mg tablet RxNorm: 218039 Tablet(s) 1 Tablet(s) PO Q6 PRN TAKE NEEDED ONLY!!! 10/27/2017 01/01/2018 Inactive Xanax 0.5 mg tablet RxNorm: 041017 Tablet(s) TAKE ONE TABLET BY MOUTH THREE TIMES DAILY 10/20/2017 04/08/2018 Inactive Tessalon Perles 100 mg capsule RxNorm: 606295 Capsule(s) 2 Capsule(s) PO TID as needed 10/19/2017 11/20/2017 Inactive Diflucan 150 mg tablet RxNorm: 117205 1 Tablet(s) PO every other day 10/15/2017 11/13/2017 Inactive Percocet 10 mg-325 mg tablet RxNorm: 5439365 1-2 Tablet(s) PO Q6 PRN 10/06/2017 10/20/2017 Inactive pantoprazole 40 mg tablet,delayed release RxNorm: 857403 1 Tablet(s) PO BID 10/03/2017 03/31/2018 Inactive Cymbalta 60 mg capsule,delayed release RxNorm: 910525 TAKE ONE CAPSULE BY MOUTH ONCE DAILY 09/21/2017 02/19/2018 Inactive Diflucan 150 mg tablet RxNorm: 745673 1 Tablet(s) PO every other day 09/15/2017 09/19/2017 Inactive hyoscyamine 0.125 mg sublingual tablet RxNorm: 1776301 1 Tablet(s) SL TID as needed 09/08/2017 12/12/2017 Inactive Lantus Solostar U-100 Insulin 100 unit/mL (3 mL) subcutaneous pen RxNorm: 362386 Unit(s) SQ 35 units QAM and 55 units QHS Unit(s) SQ 09/06/2017 09/20/2017 Inactive Wants insulin pens Lasix 40 mg tablet RxNorm: 902223 TAKE ONE TABLET BY MOUTH TWICE DAILY 08/25/2017 04/18/2018 Inactive ropinirole 1 mg tablet RxNorm: 921330 TAKE ONE TABLET BY MOUTH AT BEDTIME 08/25/2017 11/13/2017 Inactive Lantus U-100 Insulin 100 unit/mL subcutaneous solution RxNorm: 114101 35 units QAM and 55 units QHS Unit(s) SQ 08/21/2017 09/05/2017 Inactive Tessalon Perles 100 mg capsule RxNorm: 270954 Capsule(s) 2 Capsule(s) PO TID as needed 08/18/2017 10/18/2017 Inactive Percocet 10 mg-325 mg tablet RxNorm: 4957471 1-2 Tablet(s) PO Q6 PRN 08/16/2017 08/30/2017 Inactive pantoprazole 40 mg tablet,delayed release RxNorm: 013264 TAKE ONE TABLET BY MOUTH TWICE DAILY 08/14/2017 08/13/2017 Inactive pantoprazole 40 mg tablet,delayed release RxNorm: 965775 1 Tablet(s) PO daily 08/14/2017 10/02/2017 Inactive promethazine 25 mg tablet RxNorm: 476554 Tablet(s) 1 Tablet(s) PO Q6 PRN TAKE NEEDED ONLY!!! 08/11/2017 10/26/2017 Inactive omeprazole 20 mg capsule,delayed release RxNorm: 418624 1 Capsule(s) PO daily TAKE 1 CAPSULE BY MOUTH ONCE DAILY 08/07/2017 10/26/2017 Inactive nystatin 100,000 unit/mL oral suspension RxNorm: 317953 5 Milliliter(s) PO QID swish and swallow 08/07/2017 08/16/2017 Inactive mupirocin 2 % topical ointment RxNorm: 689521 APPLY TO SORE IN BELLY BUTTON TWICE DAILY 08/07/2017 02/14/2018 Inactive omeprazole 20 mg capsule,delayed release RxNorm: 548505 1 Capsule(s) PO BID TAKE 1 CAPSULE BY MOUTH TWICE DAILY 08/03/2017 08/06/2017 Inactive Diflucan 150 mg tablet RxNorm: 697286 1 Tablet(s) PO daily 08/05/2017 Inactive hyoscyamine 0.125 mg sublingual tablet RxNorm: 7049468 1 Tablet(s) SL TID as needed 08/03/2017 09/01/2017 Inactive gentamicin 0.3 % eye drops RxNorm: 988686 2 Drop(s) ophthalmic (eye) TID 08/03/2017 08/09/2017 Inactive Levaquin 500 mg tablet RxNorm: 290151 1 Tablet(s) PO every other day x3 doses 07/27/2017 08/02/2017 Inactive gentamicin 0.3 % eye drops RxNorm: 879651 2 Drop(s) ophthalmic (eye) TID 07/27/2017 08/02/2017 Inactive dicyclomine 10 mg capsule RxNorm: 678109 1 Capsule(s) PO TID 08/02/2017 Inactive Levaquin 500 mg tablet RxNorm: 841174 1 Tablet(s) PO daily 12/201707/26/2017 Inactive Lantus U-100 Insulin 100 unit/mL subcutaneous solution RxNorm: 374830 INJECT 35 UNITS SUBCUTANEOUSLY IN THE MORNING AND 55 UNITS AT BEDTIME 07/24/2017 09/05/2017 Inactive Tessalon Perles 100 mg capsule RxNorm: 085478 2 Capsule(s) PO TID as needed 07/24/2017 08/17/2017 Inactive Percocet 10 mg-325 mg tablet RxNorm: 1130634 1-2 Tablet(s) PO Q6 PRN 07/21/2017 08/04/2017 Inactive promethazine 25 mg tablet RxNorm: 340613 1 Tablet(s) PO Q6 PRN 1 Tablet(s) PO Q6 PRN 07/19/2017 07/26/2017 Inactive Cartia XT 240 mg capsule,extended release RxNorm: 063184 1 Capsule(s) PO daily 06/27/2017 06/21/2018 Active potassium chloride ER 20 mEq tablet,extended release RxNorm: 861613 Tablet(s) TAKE ONE TABLET BY MOUTH ONCE DAILY 06/21/2017 No Stop Date Active Lantus U-100 Insulin 100 unit/mL subcutaneous solution RxNorm: 752517 35 units QAM and 55 units QHS Unit(s) SQ 06/21/2017 07/20/2017 Inactive Please provide 30 day supply Percocet 10 mg-325 mg tablet RxNorm: 6474935 1-2 Tablet(s) PO Q6 PRN 06/21/2017 07/05/2017 Inactive Cartia XT 180 mg capsule,extended release RxNorm: 923090 Capsule(s) BID 06/21/2017 06/26/2017 Inactive Xanax 0.5 mg tablet RxNorm: 626981 Tablet(s) TAKE ONE TABLET BY MOUTH THREE TIMES DAILY 06/21/2017 08/19/2017 Inactive digoxin 125 mcg tablet RxNorm: 688750 1 Tablet(s) PO daily 10/18/2017 Inactive gabapentin 600 mg tablet RxNorm: 720936 Tablet(s) TAKE ONE & ONE-HALF TABLETS BY MOUTH THREE TIMES DAILY 06/21/20172017 Inactive dicyclomine 10 mg capsule RxNorm: 088029 1 Capsule(s) PO TID 07/26/2017 Inactive Lantus U-100 Insulin 100 unit/mL subcutaneous solution RxNorm: 626597 35 units QAM and 55 units QHS Unit(s) SQ 06/13/2017 06/20/2017 Inactive Please provide 30 day supply potassium chloride ER 20 mEq tablet,extended release RxNorm: 881897 TAKE ONE TABLET BY MOUTH ONCE DAILY 06/02/2017 Inactive cyclobenzaprine 10 mg tablet RxNorm: 718135 Tablet(s) TABLET(S) 1 TABLET(S) PO NEEDED TAKE 1 TABLET BY MOUTH EVERY 8 HOURS NEEDED 201711/02/2017 Inactive Tessalon Perles 100 mg capsule RxNorm: 571324 2 Capsule(s) PO TID as needed 06/01/2017 07/23/2017 Inactive promethazine 25 mg tablet RxNorm: 632097 1 Tablet(s) PO Q6 PRN 1 Tablet(s) PO Q6 PRN 05/25/2017 06/01/2017 Inactive gabapentin 600 mg tablet RxNorm: 630459 TAKE ONE & ONE-HALF TABLETS BY MOUTH THREE TIMES DAILY 05/23/2017 06/20/2017 Inactive promethazine 25 mg tablet RxNorm: 285933 1 Tablet(s) PO Q6 PRN 1 Tablet(s) PO Q6 PRN 05/19/2017 05/24/2017 Inactive Flagyl 500 mg tablet RxNorm: 898411 1 Tablet(s) PO TID 201605/26/2017 Inactive Levaquin 500 mg tablet RxNorm: 507059 1 Tablet(s) PO daily 05/16/2017 Inactive Tessalon Perles 100 mg capsule RxNorm: 975255 2 Capsule(s) PO TID as needed 05/17/2017 05/31/2017 Inactive Flagyl 500 mg tablet RxNorm: 193581 1 Tablet(s) PO TID 201605/16/2017 Inactive hyoscyamine 0.125 mg sublingual tablet RxNorm: 9218429 1 Tablet(s) SL TID as needed 05/17/2017 06/12/2017 Inactive Levaquin 500 mg tablet RxNorm: 128275 1 Tablet(s) PO daily 05/23/2017 Inactive Cymbalta 60 mg capsule,delayed release RxNorm: 897074 1 Capsule(s) PO daily take with 30mg tablet 05/16/2017 08/13/2017 Inactive Bentyl 10 mg capsule RxNorm: 069361 1 Capsule(s) PO TID as needed 05/12/2017 06/10/2017 Inactive Levsin 0.125 mg tablet RxNorm: 6432452 1 Tablet(s) PO Q4 PRN 1-2 Tablet(s) PO Q4 PRN 05/11/2017 05/11/2017 Inactive nystatin 100,000 unit/gram topical powder RxNorm: 779122 Gram(s) APPLY POWDER TOPICALLY 4 TIMES DAILY 05/11/20172017 Inactive nystatin 100,000 unit/mL oral suspension RxNorm: 780160 4 Milliliter(s) PO QID swish and swallow 05/10/2017 05/19/2017 Inactive and Monistat over the counter colestipol 1 gram tablet RxNorm: 5956044 TAKE ONE TABLET BY MOUTH TWICE DAILY 05/08/2017 03/29/2018 Inactive Lantus 100 unit/mL subcutaneous solution RxNorm: 483737 30 units QAM and 50 units QHS Unit(s) SQ 04/28/2017 05/27/2017 Inactive Please provide 30 day supply Lantus Solostar 100 unit/mL (3 mL) subcutaneous insulin pen RxNorm: 893498 Unit( s) SQ BID 04/28/2017 06/13/2017 Inactive 30 units q am and 50units at night Lantus 100 unit/mL subcutaneous solution RxNorm: 908489 30 units QAM and 50 units QHS Unit(s) SQ 04/28/2017 04/27/2017 Inactive Please provide 30 day supply Levsin 0.125 mg tablet RxNorm: 7372652 1 Tablet(s) PO Q4 PRN 1-2 Tablet(s) PO Q4 PRN 04/25/2017 05/10/2017 Inactive promethazine 25 mg tablet RxNorm: 016722 1 Tablet(s) PO Q6 PRN 1 Tablet(s) PO Q6 PRN 04/25/2017 05/02/2017 Inactive Toprol XL 100 mg tablet,extended release RxNorm: 099918 TAKE ONE TABLET BY MOUTH TWICE DAILY 04/24/2017 11/14/2017 Inactive Flagyl 500 mg tablet RxNorm: 617040 1 Tablet(s) PO TID 201604/30/2017 Inactive Levaquin 500 mg tablet RxNorm: 104236 1 Tablet(s) PO daily 05/201604/27/2017 Inactive Voltaren 1 % topical gel RxNorm: 980746 4 Gram(s) TOP QID 04/1810/14/2017 Inactive mupirocin 2 % topical ointment RxNorm: 120116 1 Application TOP BID 04/18/2017 04/27/2017 Inactive apply to sore in belly button Lantus Solostar 100 unit/mL (3 mL) subcutaneous insulin pen RxNorm: 647758 Unit( s) SQ BID 04/18/2017 04/27/2017 Inactive 20 units q am and 50units at night levothyroxine 88 mcg tablet RxNorm: 694946 1 Tablet(s) PO daily TAKE ONE TABLET BY MOUTH ONCE DAILY 04/06/2017 04/17/2017 Inactive Xanax 0.5 mg tablet RxNorm: 000227 Tablet(s) TAKE ONE TABLET BY MOUTH THREE TIMES DAILY 04/04/2017 06/02/2017 Inactive Percocet 10 mg-325 mg tablet RxNorm: 5107777 1-2 Tablet(s) PO Q6 PRN 04/04/2017 04/18/2017 Inactive cyclobenzaprine 10 mg tablet RxNorm: 310447 TAKE ONE TABLET BY MOUTH EVERY 8 HOURS NEEDED 04/03/2017 06/01/2017 Inactive potassium chloride ER 20 mEq tablet,extended release RxNorm: 347109 1 Tablet(s) PO daily 03/28/2017 06/01/2017 Inactive nystatin 100,000 unit/gram topical cream RxNorm: 448644 1 Application TOP BID 03/27/2017 04/09/2017 Inactive Levsin 0.125 mg tablet RxNorm: 4826601 1 Tablet(s) PO Q4 PRN 1-2 Tablet(s) PO Q4 PRN 03/27/2017 04/24/2017 Inactive promethazine 25 mg tablet RxNorm: 192922 1 Tablet(s) PO Q6 PRN 03/23/2017 03/29/2017 Inactive nystatin 100,000 unit/gram topical powder RxNorm: 255319 APPLY POWDER TOPICALLY 4 TIMES DAILY 03/17/2017 05/10/2017 Inactive Percocet 10 mg-325 mg tablet RxNorm: 9117007 1-2 Tablet(s) PO Q6 PRN 03/09/2017 03/23/2017 Inactive Levsin 0.125 mg tablet RxNorm: 1517508 1-2 Tablet(s) PO Q4 PRN 03/06/2017 03/26/2017 Inactive promethazine 25 mg tablet RxNorm: 272019 1 Tablet(s) PO Q6 PRN 03/06/2017 03/13/2017 Inactive potassium chloride ER 20 mEq tablet,extended release RxNorm: 161289 1 Tablet(s) PO BID 02/23/2017 03/09/2017 Inactive Levsin/SL 0.125 mg sublingual tablet RxNorm: 5256390 1-2 Tablet(s) SL Q4 PRN 02/17/2017 03/26/2017 Inactive potassium chloride ER 20 mEq tablet,extended release RxNorm: 635014 1 Tablet(s) PO BID 02/17/2017 02/21/2017 Inactive magnesium oxide 400 mg tablet RxNorm: 789142 1 Tablet(s) PO daily 02/17/2017 02/21/2017 Inactive then twice weekly thereafter Levsin 0.125 mg tablet RxNorm: 0083872 1-2 Tablet(s) PO Q4 PRN 02/17/2017 02/16/2017 Inactive promethazine 25 mg tablet RxNorm: 276866 1 Tablet(s) PO Q6 PRN 02/10/2017 03/05/2017 Inactive Percocet 10 mg-325 mg tablet RxNorm: 4179218 1-2 Tablet(s) PO Q6 PRN 02/09/2017 02/23/2017 Inactive Cymbalta 60 mg capsule,delayed release RxNorm: 313840 1 Capsule(s) PO daily take with 30mg tablet 02/06/2017 05/06/2017 Inactive Cymbalta 30 mg capsule,delayed release RxNorm: 879110 1 Capsule(s) PO daily take with 60mg tablet 02/06/2017 02/19/2018 Inactive take with 60mg=90mg Vitamin D2 50,000 unit capsule RxNorm: 961325 1 Capsule(s) PO daily 01/17/2017 01/16/2017 Inactive daily x 6 mths Tresiba FlexTouch U-100 100 unit/mL (3 mL) subcutaneous insulin pen RxNorm: 9679854 40 Unit(s) SQ daily 01/17/20172016 Inactive Tresiba FlexTouch U-100 100 unit/mL (3 mL) subcutaneous insulin pen RxNorm: 3429843 40 Unit(s) SQ daily 01/17/20172016 Inactive Vitamin D2 50,000 unit capsule RxNorm: 559938 1 Capsule(s) PO daily 01/17/2017 10/26/2017 Inactive daily x 6 mths Cymbalta 30 mg capsule,delayed release RxNorm: 888727 1 Capsule(s) PO daily 01/16/2017 02/05/2017 Inactive take with 60mg=90mg Percocet 10 mg-325 mg tablet RxNorm: 0047110 1-2 Tablet(s) PO Q6 PRN 01/13/2017 01/27/2017 Inactive gabapentin 600 mg tablet RxNorm: 791949 TAKE ONE & ONE-HALF TABLETS BY MOUTH THREE TIMES DAILY 01/10/2017 05/09/2017 Inactive Percocet 10 mg-325 mg tablet RxNorm: 3110128 1-2 Tablet(s) PO Q6 PRN 12/21/2016 01/04/2017 Inactive Xanax 0.5 mg tablet RxNorm: 402296 Tablet(s) TAKE ONE TABLET BY MOUTH THREE TIMES DAILY 12/20/2016 02/15/2017 Inactive promethazine 25 mg tablet RxNorm: 167466 1 Tablet(s) PO Q6 PRN 12/16/2016 12/18/2016 Inactive prednisone 20 mg tablet RxNorm: 291460 2 Tablet(s) PO daily 12/14/2016 Inactive prednisone 20 mg tablet RxNorm: 934876 2 Tablet(s) PO daily 03/26/2017 Inactive Eliquis 5 mg tablet RxNorm: 3176744 1 Tablet(s) PO BID 201601/11/2017 Inactive doxycycline monohydrate 100 mg tablet RxNorm: 832972 1 Tablet(s) PO BID 12/13/2016 03/26/2017 Inactive give doxycyline hyclate cyclobenzaprine 10 mg tablet RxNorm: 961881 TAKE ONE TABLET BY MOUTH EVERY 8 HOURS NEEDED 12/09/2016 12/28/2016 Inactive Cymbalta 60 mg capsule,delayed release RxNorm: 029238 TAKE ONE CAPSULE BY MOUTH ONCE DAILY 11/30/2016 02/05/2017 Inactive promethazine 25 mg tablet RxNorm: 664045 2 Tablet(s) PO Q6 PRN 11/29/2016 12/16/2016 Inactive Percocet 10 mg-325 mg tablet RxNorm: 3306885 1-2 Tablet(s) PO Q6 PRN 11/24/2016 12/08/2016 Inactive mupirocin 2 % topical ointment RxNorm: 911554 1 Application TOP BID 11/11/2016 11/24/2016 Inactive Xanax 0.5 mg tablet RxNorm: 845093 Tablet(s) TAKE ONE TABLET BY MOUTH THREE TIMES DAILY 11/11/2016 12/19/2016 Inactive Belviq 10 mg tablet RxNorm: 8210119 1 Tablet(s) PO BID 201612/10/2016 Inactive Toprol XL 100 mg tablet,extended release RxNorm: 468434 TAKE ONE TABLET BY MOUTH TWICE DAILY 11/04/2016 04/02/2017 Inactive albuterol sulfate concentrate 2.5 mg/0.5 mL solution for nebulization RxNorm: 863332 USE ONE VIAL IN NEBULIZER EVERY 4 TO 6 HOURS NEEDED 11/03/2016 11/12/2016 Inactive Percocet 10 mg-325 mg tablet RxNorm: 3807906 1-2 Tablet(s) PO Q6 PRN 10/31/2016 11/23/2016 Inactive promethazine 25 mg tablet RxNorm: 849398 2 Tablet(s) PO Q6 PRN 10/28/2016 11/28/2016 Inactive nystatin 100,000 unit/mL oral suspension RxNorm: 027407 5 Milliliter(s) PO QID 10/28/2016 11/06/2016 Inactive Levemir FlexTouch 100 unit/mL (3 mL) subcutaneous insulin pen RxNorm: 811293 45 Unit(s) SQ BID 10/28/2016 01/16/2017 Inactive 45 q am and 40 q anita cyclobenzaprine 10 mg tablet RxNorm: 887812 TAKE ONE TABLET BY MOUTH EVERY 8 HOURS NEEDED 10/21/2016 11/09/2016 Inactive Lasix 40 mg tablet RxNorm: 140629 TAKE ONE TABLET BY MOUTH TWICE DAILY 10/18/2016 04/15/2017 Inactive Percocet 10 mg-325 mg tablet RxNorm: 5163336 1-2 Tablet(s) PO Q6 PRN 10/18/2016 10/30/2016 Inactive acyclovir 400 mg tablet RxNorm: 739692 2 Tablet(s) PO QID 10/1310/22/2016 Inactive Lasix 40 mg tablet RxNorm: 487014 TAKE ONE TABLET BY MOUTH TWICE DAILY 10/10/2016 10/17/2016 Inactive ropinirole 1 mg tablet RxNorm: 872494 TAKE ONE TABLET BY MOUTH AT BEDTIME 10/10/2016 04/07/2017 Inactive nystatin 100,000 unit/mL oral suspension RxNorm: 913993 5 Milliliter(s) PO QID x 10 days 09/30/2016 10/09/2016 Inactive nystatin 100,000 unit/mL oral suspension RxNorm: 549674 5 Milliliter(s) PO QID x 10 days 09/30/2016 10/09/2016 Inactive Swish et swallow Flonase Allergy Relief 50 mcg/actuation nasal spray, suspension RxNorm: 0448285 2 [place] NASAL daily 09/23/20162016 Inactive Percocet 10 mg-325 mg tablet RxNorm: 4282859 1-2 Tablet(s) PO Q6 PRN 09/23/2016 10/17/2016 Inactive doxycycline monohydrate 100 mg tablet RxNorm: 087414 1 Tablet(s) PO BID 09/23/2016 10/02/2016 Inactive give doxycyline hyclate Levemir FlexTouch 100 unit/mL (3 mL) subcutaneous insulin pen RxNorm: 858710 40 Unit(s) SQ BID 09/15/2016 10/27/2016 Inactive nystatin 100,000 unit/gram topical powder RxNorm: 186330 1 Application TOP QID 09/13/2016 09/22/2016 Inactive Voltaren 1 % topical gel RxNorm: 222711 4 Gram(s) TOP QID 09/1303/11/2017 Inactive Anusol-HC 25 mg rectal suppository RxNorm: 9381479 1 Suppository RTL HS 09/13/2016 09/26/2016 Inactive hydrocodone 10 mg-acetaminophen 325 mg tablet RxNorm: 915759 1-2 Tablet(s) PO Q6 as needed 09/13/2016 09/22/2016 Inactive Linzess 145 mcg capsule RxNorm: 8927761 1 Capsule(s) PO daily 09/01/2016 10/26/2017 Inactive Linzess 145 mcg capsule RxNorm: 9441627 1 Capsule(s) PO daily 09/01/2016 08/31/2016 Inactive Zofran 4 mg tablet RxNorm: 373011 TAKE ONE TABLET BY MOUTH EVERY 4 TO 6 HOURS NEEDED 08/29/2016 08/02/2017 Inactive Voltaren 1 % topical gel RxNorm: 813937 4 Gram(s) TOP QID 08/2309/12/2016 Inactive levothyroxine 88 mcg tablet RxNorm: 074460 TAKE ONE TABLET BY MOUTH ONCE DAILY 08/19/2016 12/16/2016 Inactive hydrocodone 10 mg-acetaminophen 325 mg tablet RxNorm: 085982 1 Tablet(s) PO Q6 as needed 08/17/2016 09/12/2016 Inactive nystatin 100,000 unit/gram topical powder RxNorm: 756715 1 Application TOP QID 08/16/2016 08/25/2016 Inactive Cymbalta 60 mg capsule,delayed release RxNorm: 624291 TAKE ONE CAPSULE BY MOUTH ONCE DAILY 08/10/2016 11/29/2016 Inactive Voltaren 1 % topical gel RxNorm: 677393 4 Gram(s) TOP QID 08/1008/22/2016 Inactive Voltaren 1 % topical gel RxNorm: 053501 4 Gram(s) TOP QID 08/1008/09/2016 Inactive promethazine 25 mg tablet RxNorm: 950718 TAKE ONE TABLET BY MOUTH EVERY 8 HOURS NEEDED FOR NAUSEA 07/29/20162017 Inactive nystatin 100,000 unit/gram topical powder RxNorm: 250517 1 Application TOP QID 07/26/2016 08/04/2016 Inactive Levemir FlexTouch U-100 Insulin 100 unit/mL (3 mL) subcutaneous pen RxNorm: 087493 35 Unit(s) SQ BID 07/26/201609/2016 Inactive 35 q am and 30 q pm cyclobenzaprine 10 mg tablet RxNorm: 170589 TAKE ONE TABLET BY MOUTH EVERY 8 HOURS NEEDED 07/14/2016 08/22/2016 Inactive hydrocodone 10 mg-acetaminophen 325 mg tablet RxNorm: 555916 1 Tablet(s) PO Q6 as needed 07/11/2016 08/16/2016 Inactive nystatin 100,000 unit/mL oral suspension RxNorm: 752648 5 Milliliter(s) PO QID x 10 days 07/05/2016 07/04/2016 Inactive nystatin 100,000 unit/mL oral suspension RxNorm: 059948 5 Milliliter(s) PO QID x 10 days 07/05/2016 07/04/2016 Inactive nystatin 100,000 unit/mL oral suspension RxNorm: 501647 5 Milliliter(s) PO QID x 10 days 07/05/2016 07/14/2016 Inactive Swish et swallow doxycycline monohydrate 100 mg tablet RxNorm: 574544 1 Tablet(s) PO BID 06/24/2016 07/03/2016 Inactive give doxycyline hyclate promethazine 25 mg tablet RxNorm: 098491 TAKE ONE TABLET BY MOUTH EVERY 8 HOURS NEEDED FOR NAUSEA 06/01/20162016 Inactive pantoprazole 40 mg tablet,delayed release RxNorm: 221297 1 Tablet(s) PO BID 05/25/2016 08/02/2017 Inactive Zofran 4 mg tablet RxNorm: 498064 1 Tablet(s) PO Q12 PRN TAKE 1 TABLET BY MOUTH EVERY 4 TO 6 HOURS NEEDED 05/24/2016 Inactive hydrocodone 10 mg-acetaminophen 325 mg tablet RxNorm: 121505 1 Tablet(s) PO Q6 as needed 05/24/2016 07/10/2016 Inactive Levemir FlexTouch 100 unit/mL (3 mL) subcutaneous insulin pen RxNorm: 691658 25 Unit(s) SQ BID 05/24/2016 06/22/2016 Inactive Xanax 0.5 mg tablet RxNorm: 311920 Tablet(s) TAKE ONE TABLET BY MOUTH THREE TIMES DAILY 05/11/2016 07/09/2016 Inactive BD Insulin Pen Needle UF Short 31 gauge x 5/16" RxNorm: [facility] 05/06/2016 05/05/2016 Inactive BD Insulin Pen Needle UF Short 31 gauge x 16" RxNorm: [facility] 05/06/2016 06/04/2016 Inactive colestipol 1 gram tablet RxNorm: 5978257 Tablet(s) TAKE 1 TABLET BY MOUTH TWICE DAILY 04/22/2016 04/16/2017 Inactive Levemir FlexTouch 100 unit/mL (3 mL) subcutaneous insulin pen RxNorm: 670977 20 Unit(s) SQ BID 04/19/2016 05/18/2016 Inactive 25 UNITS Q AM AND 20 UNITS Q HS Cartia XT 180 mg capsule,extended release RxNorm: 984379 Capsule(s) BID 04/11/2016 04/05/2017 Inactive hydrocodone 10 mg-acetaminophen 325 mg tablet RxNorm: 073120 1 Tablet(s) PO Q6 as needed 04/11/2016 05/23/2016 Inactive Levemir FlexTouch 100 unit/mL (3 mL) subcutaneous insulin pen RxNorm: 408271 20 Unit(s) SQ BID 04/11/2016 04/18/2016 Inactive 20 UNITS Q AM AND 15 UNITS Q HS X 1 WEEK THEN 20 UNITS BID levothyroxine 88 mcg tablet RxNorm: 493404 1 Tablet(s) PO daily 03/21/2016 07/18/2016 Inactive Cymbalta 60 mg capsule,delayed release RxNorm: 537560 1 Capsule(s) PO daily 03/21/2016 07/18/2016 Inactive diltiazem ER (XR/XT) 240 mg capsule,extended release, controlled RxNorm: 545280 1 Capsule(s) PO BID 03/18/20162017 Inactive doxycycline hyclate 100 mg tablet RxNorm: 518587 1 Tablet(s) PO BID 03/11/2016 03/17/2016 Inactive Levemir FlexTouch 100 unit/mL (3 mL) subcutaneous insulin pen RxNorm: 266848 10 Unit(s) SQ BID 03/11/2016 04/09/2016 Inactive Lasix 40 mg tablet RxNorm: 482895 1 Tablet(s) PO BID 201509/06/2016 Inactive gabapentin 600 mg tablet RxNorm: 776449 Tablet(s) 1.5 TABLET(S) PO TID 03/04/2016 08/30/2016 Inactive Toujeo SoloStar 300 unit/mL (1.5 mL) subcutaneous insulin pen RxNorm: 7217409 10 Unit(s) SQ QHS 02/26/2016 03/26/2016 Inactive polymyxin B sulfate 10,000 unit-trimethoprim 1 mg/mL eye drops RxNorm: 740081 2 Drop(s) OPH TID 02/26/2016 03/03/2016 Inactive Lasix 20 mg tablet RxNorm: 698630 2 Tablet(s) PO BID TAKE 2 TABLETS BY MOUTH EVERY MORNING AND 2 TABLET BY MOUTH AT 3 PM 02/26/2016 03/10/2016 Inactive cyclobenzaprine 10 mg tablet RxNorm: 560860 Tablet(s) TABLET(S) TABLET(S) 1 TABLET (S) PO NEEDED TAKE 1 TABLET BY MOUTH EVERY 8 HOURS NEEDED 02/26/2016 07/13/2016 Inactive early fill- pt lost med Levemir FlexTouch 100 unit/mL (3 mL) subcutaneous insulin pen RxNorm: 472388 16 Unit(s) SQ QHS 02/18/2016 02/17/2016 Inactive Levemir FlexTouch 100 unit/mL (3 mL) subcutaneous insulin pen RxNorm: 921060 16 Unit(s) SQ QHS 02/18/2016 02/25/2016 Inactive Levemir 100 unit/mL subcutaneous solution RxNorm: 862996 16 Unit(s) SQ QHS 02/15/2016 02/17/2016 Inactive disp needles as well Effexor XR 37.5 mg capsule,extended release RxNorm: 431762 1 Capsule(s) QPM CAPSULE(S) PO TAKE 2 CAPSULES BY MOUTH EVERY MORNING AND 1 CAPSULE BY MOUTH EVERY NIGHT AT BEDTIME 02/15/20162015 Inactive clotrimazole 100 mg vaginal tablet RxNorm: 638920 1 Tablet(s) VAG QHS 02/05/2016 02/11/2016 Inactive clotrimazole 100 mg vaginal tablet RxNorm: 426906 1 Tablet(s) VAG QHS 02/05/2016 02/04/2016 Inactive hydrocodone 10 mg-acetaminophen 325 mg tablet RxNorm: 102039 1 Tablet(s) PO Q6 as needed 02/05/2016 04/10/2016 Inactive flecainide 100 mg tablet RxNorm: 590867 1 Tablet(s) PO BID No Stop Date Active potassium chloride ER 10 mEq tablet,extended release RxNorm: 863064 1 Tablet(s) PO daily 1 TABLET(S) PO QDAY PRN TAKE WITH LASIX 02/02/2016 01/26/2017 Inactive Brovana 15 mcg/2 mL solution for nebulization RxNorm: 776897 2 Milliliter(s) INH BID PRN 02/02/2016 03/20/2016 Inactive promethazine 25 mg tablet RxNorm: 446988 1 Tablet(s) PO Q8 as needed nausea 01/27/2016 03/20/2016 Inactive promethazine 25 mg tablet RxNorm: 780160 1 Tablet(s) PO Q6 PRN 01/27/2016 02/03/2016 Inactive nystatin 100,000 unit/mL oral suspension RxNorm: 963510 5 Unit(s) PO QID 01/12/2016 01/21/2016 Inactive promethazine 25 mg tablet RxNorm: 033704 1 Tablet(s) PO Q6 PRN 12/30/2015 01/06/2016 Inactive hydrocodone 7.5 mg-acetaminophen 325 mg tablet RxNorm: 740713 1 Tablet(s) PO q 6 hours prn for pain 12/10/2015 01/06/2016 Inactive Xanax 0.5 mg tablet RxNorm: 677981 TAKE ONE TABLET BY MOUTH THREE TIMES DAILY 12/02/2015 12/31/2015 Inactive Xanax 0.5 mg tablet RxNorm: 948477 Tablet(s) TAKE 1 TABLET BY MOUTH THREE TIMES DAILY 12/02/2015 11/30/2015 Inactive Anusol-HC 25 mg rectal suppository RxNorm: 0355564 1 Suppository RTL HS 11/27/2015 09/12/2016 Inactive ropinirole 1 mg tablet RxNorm: 842378 1 Tablet(s) PO QHS 201505/24/2016 Inactive nystatin 100,000 unit/mL oral suspension RxNorm: 835439 5 Unit(s) PO QID 11/20/2015 11/29/2015 Inactive albuterol sulfate concentrate 2.5 mg/0.5 mL solution for nebulization RxNorm: 338421 3 Milliliter(s) INH Q4-6H as needed 11/10/2015 11/02/2016 Inactive doxycycline monohydrate 100 mg tablet RxNorm: 111568 1 Tablet(s) PO BID 11/10/2015 11/19/2015 Inactive give doxycyline hyclate promethazine 25 mg tablet RxNorm: 695487 1 Tablet(s) PO Q6 PRN 11/05/2015 11/12/2015 Inactive Bactroban 2 % topical ointment RxNorm: 716687 1 APPLICATION TOP BID 10/27/2015 10/26/2017 Inactive Belviq 10 mg tablet RxNorm: 4043593 1 Tablet(s) PO BID 201511/25/2015 Inactive hydrocodone 7.5 mg-acetaminophen 325 mg tablet RxNorm: 448652 1 Tablet(s) PO q 6 hours prn for pain 10/20/2015 11/18/2015 Inactive Toprol XL 100 mg tablet,extended release RxNorm: 615224 Tablet(s) TAKE 1 TABLET BY MOUTH TWICE DAILY 10/16/20152016 Inactive Diflucan 150 mg tablet RxNorm: 736871 1 Tablet(s) PO every other day 10/14/2015 10/23/2015 Inactive Xanax 0.5 mg tablet RxNorm: 760881 Tablet(s) TAKE 1 TABLET BY MOUTH THREE TIMES DAILY 10/14/2015 05/10/2016 Inactive Toprol XL 100 mg tablet,extended release RxNorm: 058362 Tablet(s) TAKE 1 TABLET BY MOUTH TWICE DAILY 10/13/20152015 Inactive cyclobenzaprine 10 mg tablet RxNorm: 909670 Tablet(s) TABLET(S) TABLET(S) 1 TABLET (S) PO NEEDED TAKE 1 TABLET BY MOUTH EVERY 8 HOURS NEEDED 10/02/2015 10/14/2015 Inactive Zofran 4 mg tablet RxNorm: 146005 Tablet(s) 1 TABLET(S) PRN TAKE 1 TABLET BY MOUTH EVERY 4 TO 6 HOURS NEEDED 09/29/2015 12/27/2015 Inactive Synthroid 88 mcg tablet RxNorm: 764655 1 Tablet(s) PO daily 1 TABLET(S) PO DAILY 09/29/2015 10/28/2015 Inactive Patient requests 90 days supply promethazine 25 mg tablet RxNorm: 521840 1 Tablet(s) PO Q6 PRN 09/29/2015 11/04/2015 Inactive Lasix 20 mg tablet RxNorm: 009939 2 Tablet(s) PO BID 201501/18/2016 Inactive promethazine 25 mg tablet RxNorm: 059291 1 Tablet(s) PO Q6 PRN 09/22/2015 09/28/2015 Inactive hydrocodone 7.5 mg-acetaminophen 325 mg tablet RxNorm: 276606 1 Tablet(s) PO q 6 hours prn for pain 09/17/2015 10/16/2015 Inactive WelChol 625 mg tablet RxNorm: 926343 3 Tablet(s) PO BID 201503/26/2017 Inactive promethazine 25 mg tablet RxNorm: 125011 1 Tablet(s) PO Q8 as needed 09/07/2015 10/26/2017 Inactive Levemir 100 unit/mL subcutaneous solution RxNorm: 921985 16 Unit(s) SQ QHS 09/01/2015 02/14/2016 Inactive pantoprazole 40 mg tablet,delayed release RxNorm: 148634 1 Tablet(s) PO daily 09/01/2015 05/24/2016 Inactive Effexor XR 37.5 mg capsule,extended release RxNorm: 672218 Capsule(s) CAPSULE(S) PO TAKE 2 CAPSULES BY MOUTH EVERY MORNING AND 1 CAPSULE BY MOUTH EVERY NIGHT AT BEDTIME 08/27/2015 02/14/2016 Inactive promethazine 25 mg tablet RxNorm: 277459 1 Tablet(s) PO Q8 as needed 08/13/2015 09/06/2015 Inactive gabapentin 600 mg tablet RxNorm: 529192 Tablet(s) 1.5 TABLET(S) PO TID 08/13/2015 02/08/2016 Inactive hydrocodone 7.5 mg-acetaminophen 325 mg tablet RxNorm: 047733 1 Tablet(s) PO q 6 hours prn for pain 08/10/2015 09/08/2015 Inactive Zofran 4 mg tablet RxNorm: 286614 Tablet(s) 1 TABLET(S) PRN TAKE 1 TABLET BY MOUTH EVERY 4 TO 6 HOURS NEEDED 08/04/2015 08/03/2015 Inactive Zofran 4 mg tablet RxNorm: 336396 Tablet(s) 1 TABLET(S) PRN TAKE 1 TABLET BY MOUTH EVERY 4 TO 6 HOURS NEEDED 08/04/2015 09/28/2015 Inactive doxycycline monohydrate 100 mg tablet RxNorm: 291548 1 Tablet(s) PO BID 08/04/2015 08/10/2015 Inactive give doxycyline hyclate Diflucan 150 mg tablet RxNorm: 384188 1 Tablet(s) PO every other day 07/31/2015 08/09/2015 Inactive nystatin 100,000 unit/mL oral suspension RxNorm: 456110 5 Milliliter(s) PO QID 07/31/2015 07/30/2015 Inactive Diflucan 150 mg tablet RxNorm: 626910 1 Tablet(s) PO every other day 07/31/2015 07/30/2015 Inactive nystatin 100,000 unit/mL oral suspension RxNorm: 555965 5 Milliliter(s) PO QID 07/31/2015 08/09/2015 Inactive Ceftin 500 mg tablet RxNorm: 121410 1 Tablet(s) PO BID 201507/23/2015 Inactive Ceftin 500 mg tablet RxNorm: 837540 1 Tablet(s) PO BID Pre-medicate with benadryl 50 mg, pepcid 20 mg, and nathanael before each dose 07/24/2015 07/30/2015 Inactive cyclobenzaprine 10 mg tablet RxNorm: 835748 TABLET(S) TABLET(S) 1 TABLET(S) PO NEEDED TAKE 1 TABLET BY MOUTH EVERY 8 HOURS NEEDED 201502/25/2016 Inactive early fill- pt lost med Synthroid 88 mcg tablet RxNorm: 894851 1 TABLET(S) PO DAILY 07/201509/28/2015 Inactive Patient requests 90 days supply cyclobenzaprine 10 mg tablet RxNorm: 750845 Tablet(s) TABLET(S) TABLET(S) 1 TABLET (S) PO NEEDED TAKE 1 TABLET BY MOUTH EVERY 8 HOURS NEEDED 07/23/2015 10/01/2015 Inactive early fill- pt lost med Promethazine VC 6.25 mg-5 mg/5 mL syrup RxNorm: 4163987 1-2 Teaspoon(s) PO Q6 PRN as needed 07/22/2015 03/20/2016 Inactive Diflucan 150 mg tablet RxNorm: 186022 1 Tablet(s) PO daily 06/201507/22/2015 Inactive Lasix 20 mg tablet RxNorm: 905563 Tablet(s) TAKE 2 TABLETS BY MOUTH EVERY MORNING AND 2 TABLET BY MOUTH AT 3PM 07/16/2015 09/21/2015 Inactive Toprol XL 100 mg tablet,extended release RxNorm: 772154 Tablet(s) TAKE 1 TABLET BY MOUTH TWICE DAILY 07/16/20152015 Inactive Cartia XT 180 mg capsule,extended release RxNorm: 096090 Capsule(s) 1 CAPSULE(S) PO DAILY TAKE 1 CAPSULE BY MOUTH AT BEDTIME ..TAKE THIS IN ADDITION TO 240 MG IN THE MORNING 07/14/2015 04/10/2016 Inactive diltiazem ER (XR/XT) 240 mg capsule,extended release, controlled RxNorm: 244476 Capsule(s) TAKE 1 CAPSULE BY MOUTH DAILY 07/14/2015 03/17/2016 Inactive gabapentin 600 mg tablet RxNorm: 286059 Tablet(s) 1.5 TABLET(S) PO TID 07/06/2015 08/12/2015 Inactive Phenergan 25 mg tablet RxNorm: 292232 1 Tablet(s) PO Q8 as needed nausea 06/29/2015 01/25/2016 Inactive doxycycline monohydrate 100 mg tablet RxNorm: 863703 1 Tablet(s) PO BID 06/29/2015 06/28/2015 Inactive doxycycline monohydrate 100 mg tablet RxNorm: 821560 1 Tablet(s) PO BID 06/29/2015 07/08/2015 Inactive give doxycyline hyclate doxycycline monohydrate 100 mg tablet RxNorm: 157538 1 Tablet(s) PO BID 06/29/2015 06/28/2015 Inactive Lasix 20 mg tablet RxNorm: 148851 Tablet(s) TAKE 2 TABLETS BY MOUTH EVERY MORNING AND 2 TABLET BY MOUTH AT 3PM 06/29/2015 07/15/2015 Inactive Lasix 20 mg tablet RxNorm: Tablet(s) TAKE 2 TABLETS BY MOUTH EVERY MORNING AND 1 TABLET BY MOUTH AT 3PM 06/26/2015 06/28/2015 Inactive Xanax 0.5 mg tablet RxNorm: 406123 Tablet(s) TAKE 1 TABLET BY MOUTH THREE TIMES DAILY 06/26/2015 07/25/2015 Inactive Kenalog 40 mg/mL suspension for injection RxNorm: 8222617 Milliliter(s) Inj 06/26/2015 06/26/2015 Inactive hydrocodone 7.5 mg-acetaminophen 325 mg tablet RxNorm: 896283 1 Tablet(s) PO q 6 hours prn for pain 06/26/2015 07/25/2015 Inactive Dexilant 60 mg capsule, delayed release RxNorm: 393122 1 Capsule(s) PO daily 06/26/2015 08/24/2015 Inactive colestipol 1 gram tablet RxNorm: 0372811 1 TABLET(S) PO BID TAKE 1 TABLET BY MOUTH TWICE DAILY 06/16/2015 03/11/2016 Inactive hydrocodone 7.5 mg-acetaminophen 325 mg tablet RxNorm: 886283 1 Tablet(s) PO q 6 hours prn for pain 06/11/2015 06/25/2015 Inactive cyclobenzaprine 10 mg tablet RxNorm: 951448 TABLET(S) TABLET(S) 1 TABLET(S) PO NEEDED TAKE 1 TABLET BY MOUTH EVERY 8 HOURS NEEDED 201507/22/2015 Inactive early fill- pt lost med Zofran 4 mg tablet RxNorm: 070633 1 TABLET(S) PRN TAKE 1 TABLET BY MOUTH EVERY 4 TO 6 HOURS NEEDED 05/25/20152015 Inactive Zofran 4 mg tablet RxNorm: 077153 1 Tablet(s) PRN TAKE 1 TABLET BY MOUTH EVERY 4 TO 6 HOURS NEEDED 05/19/20152015 Inactive gabapentin 600 mg tablet RxNorm: 537746 1.5 TABLET(S) PO TID 07/05/2015 Inactive Lasix 20 mg tablet RxNorm: 072210 TAKE 2 TABLETS BY MOUTH EVERY MORNING AND 1 TABLET BY MOUTH AT 3PM 05/07/20152015 Inactive Effexor XR 37.5 mg capsule,extended release RxNorm: 255305 Capsule(s) CAPSULE(S) PO TAKE 2 CAPSULES BY MOUTH EVERY MORNING AND 1 CAPSULE BY MOUTH EVERY NIGHT AT BEDTIME 04/15/2015 08/26/2015 Inactive Diflucan 150 mg tablet RxNorm: 739916 1 Tablet(s) PO daily 04/18/2015 Inactive Victoza 3-Babak 0.6 mg/0.1 mL (18 mg/3 mL) subcutaneous pen injector RxNorm: 788250 1.8 Milligram(s) SQ daily 04/14/201508/10 Inactive Levaquin 500 mg tablet RxNorm: 213014 1 Tablet(s) PO daily 04/20/2015 Inactive potassium chloride ER 10 mEq tablet,extended release RxNorm: 747412 1 TABLET(S) PO QDAY PRN TAKE WITH LASIX 04/13/201504/2016 Inactive Effexor XR 37.5 mg capsule,extended release RxNorm: 977209 CAPSULE(S) PO TAKE 2 CAPSULES BY MOUTH EVERY MORNING AND 1 CAPSULE BY MOUTH EVERY NIGHT AT BEDTIME 04/10/2015 04/14/2015 Inactive pantoprazole 40 mg tablet,delayed release RxNorm: 175547 1 Tablet(s) PO daily 03/31/2015 08/31/2015 Inactive Dexilant 60 mg capsule, delayed release RxNorm: 532638 1 Capsule(s) PO daily 03/31/2015 03/31/2015 Inactive pantoprazole 40 mg tablet,delayed release RxNorm: 686654 1 Tablet(s) PO daily 03/31/2015 03/30/2015 Inactive Dexilant 60 mg capsule, delayed release RxNorm: 191649 1 Capsule(s) PO daily 03/31/2015 05/29/2015 Inactive Dexilant 60 mg capsule, delayed release RxNorm: 371394 1 Capsule(s) PO daily 03/30/2015 03/30/2015 Inactive hydrocodone 7.5 mg-acetaminophen 325 mg tablet RxNorm: 072259 1 Tablet(s) PO q 6 hours prn for pain 03/30/2015 04/28/2015 Inactive cyclobenzaprine 10 mg tablet RxNorm: 710180 TABLET(S) TABLET(S) 1 TABLET(S) PO NEEDED TAKE 1 TABLET BY MOUTH EVERY 8 HOURS NEEDED 201405/31/2015 Inactive early fill- pt lost med Xanax 0.5 mg tablet RxNorm: 102912 Tablet(s) TAKE 1 TABLET BY MOUTH THREE TIMES DAILY 03/25/2015 04/23/2015 Inactive Lasix 20 mg tablet RxNorm: TAKE 2 TABLETS BY MOUTH EVERY MORNING AND 1 TABLET BY MOUTH AT 3PM 03/23/20152014 Inactive Levemir Flexpen 100 unit/mL (3 mL) solution subcutaneous insulin pen RxNorm: 850816 15 Unit(s) SQ BID 03/20/20152015 Inactive give quanity sufficient for 1 month- Dexilant 60 mg capsule, delayed release RxNorm: 290180 1 Capsule(s) PO daily 03/19/2015 03/29/2015 Inactive Dexilant 60 mg capsule, delayed release RxNorm: 511150 1 Capsule(s) PO daily 03/19/2015 03/18/2015 Inactive Diflucan 150 mg tablet RxNorm: 513157 1 Tablet(s) PO every other day x7 doses 03/19/2015 03/21/2015 Inactive hydrocodone 7.5 mg-acetaminophen 325 mg tablet RxNorm: 185692 1 Tablet(s) PO q 6 hours prn for pain 02/27/2015 03/28/2015 Inactive Lasix 20 mg tablet RxNorm: TAKE 2 TABLETS BY MOUTH EVERY MORNING AND 1 TABLET BY MOUTH AT 3PM 02/27/20152014 Inactive omeprazole 20 mg capsule,delayed release RxNorm: 189134 1 CAPSULE(S) PO DAILY TAKE 1 CAPSULE BY MOUTH TWICE DAILY 02/26/2015 10/26/2017 Inactive Zofran 4 mg tablet RxNorm: 849073 1 Tablet(s) PRN TAKE 1 TABLET BY MOUTH EVERY 4 TO 6 HOURS NEEDED 02/24/20152014 Inactive fluconazole 150 mg tablet RxNorm: 192319 1 Tablet(s) PO every other day x 5 doses 02/19/2015 02/28/2015 Inactive cyclobenzaprine 10 mg tablet RxNorm: 032759 TABLET(S) TABLET(S) 1 TABLET(S) PO NEEDED TAKE 1 TABLET BY MOUTH EVERY 8 HOURS NEEDED 201403/29/2015 Inactive early fill- pt lost med hydrocodone 7.5 mg-acetaminophen 325 mg tablet RxNorm: 048578 1 Tablet(s) PO q 6 hours prn for pain 01/29/2015 02/26/2015 Inactive Xanax 0.5 mg tablet RxNorm: 650058 Tablet(s) TAKE 1 TABLET BY MOUTH THREE TIMES DAILY 01/29/2015 02/27/2015 Inactive Bactroban 2 % topical ointment RxNorm: 381467 1 APPLICATION TOP BID 01/26/2015 10/26/2015 Inactive Bactroban 2 % topical ointment RxNorm: 011871 1 Application TOP BID 01/15/2015 01/25/2015 Inactive doxycycline hyclate 100 mg tablet RxNorm: 492786 1 Tablet(s) PO BID 01/15/2015 01/21/2015 Inactive nystatin 100,000 unit/mL oral suspension RxNorm: 965033 5 Milliliter(s) PO QID 01/15/2015 01/24/2015 Inactive Cartia XT 180 mg capsule,extended release RxNorm: 391156 1 CAPSULE(S) PO DAILY TAKE 1 CAPSULE BY MOUTH AT BEDTIME ..TAKE THIS IN ADDITION TO 240 MG IN THE MORNING 01/13/2015 07/13/2015 Inactive Lasix 20 mg tablet RxNorm: 390606 TAKE 2 TABLETS BY MOUTH EVERY MORNING AND 1 TABLET BY MOUTH AT 3PM 01/08/20152014 Inactive fluconazole 150 mg tablet RxNorm: 670114 1 Tablet(s) PO daily 01/01/2015 01/05/2015 Inactive hydrocodone 7.5 mg-acetaminophen 325 mg tablet RxNorm: 789426 1 Tablet(s) PO q 6 hours prn for pain 01/01/2015 01/28/2015 Inactive colestipol 1 gram tablet RxNorm: 9005674 1 TABLET(S) PO BID TAKE 1 TABLET BY MOUTH TWICE DAILY 12/18/2014 06/15/2015 Inactive colestipol 1 gram tablet RxNorm: 8415896 1 TABLET(S) PO BID TAKE 1 TABLET BY MOUTH TWICE DAILY 12/18/2014 09/13/2015 Inactive Lasix 20 mg tablet RxNorm: TAKE 2 TABLETS BY MOUTH EVERY MORNING AND 2 TABLETS AND AT 3PM 12/11/2014 12/25/2014 Inactive cyclobenzaprine 10 mg tablet RxNorm: 573269 TABLET(S) 1 TABLET(S) PO NEEDED TAKE 1 TABLET BY MOUTH EVERY 8 HOURS NEEDED 12/11/2014 05/31/2017 Inactive Lasix 20 mg tablet RxNorm: Tablet(s) TABLET(S) PO TAKE 2 TABLETS BY MOUTH EVERY MORNING AND 1 TABLET BY MOUTH AT 3 PM 12/10/2014 12/10/2014 Inactive fill early- pt lost them cyclobenzaprine 10 mg tablet RxNorm: 977337 Tablet(s) TABLET(S) 1 TABLET(S) PO NEEDED TAKE 1 TABLET BY MOUTH EVERY 8 HOURS NEEDED 201402/15/2015 Inactive early fill- pt lost med cyclobenzaprine 10 mg tablet RxNorm: 850776 TABLET(S) 1 TABLET(S) PO NEEDED TAKE 1 TABLET BY MOUTH EVERY 8 HOURS NEEDED 12/02/2014 12/09/2014 Inactive hydrocodone 7.5 mg-acetaminophen 325 mg tablet RxNorm: 483981 1 Tablet(s) PO q 6 hours prn for pain 12/01/2014 12/30/2014 Inactive diltiazem ER (XR/XT) 240 mg capsule,extended release, controlled RxNorm: 376322 TAKE 1 CAPSULE BY MOUTH DAILY 11/30/2014 07/13/2015 Inactive Xanax 0.5 mg tablet RxNorm: 694119 1 Tablet(s) PO TID PRN as needed 11/19/2014 11/19/2014 Inactive (Appended: Controlled substance [facility] refill [facility] [id number]|1|0|1) Xanax 0.5 mg tablet RxNorm: 649024 TAKE 1 TABLET BY MOUTH THREE TIMES DAILY 11/19/2014 12/18/2014 Inactive Toprol XL 100 mg tablet,extended release RxNorm: 124863 TAKE 1 TABLET BY MOUTH TWICE DAILY 11/06/2014 07/15/2015 Inactive Diflucan 150 mg tablet RxNorm: 193473 1 Tablet(s) PO every other day x7 doses 11/05/2014 11/07/2014 Inactive omeprazole 20 mg capsule,delayed release RxNorm: 716000 1 Capsule(s) PO daily TAKE 1 CAPSULE BY MOUTH TWICE DAILY 11/04/2014 02/01/2015 Inactive cyclobenzaprine 10 mg tablet RxNorm: 025436 TABLET(S) 1 TABLET(S) PO NEEDED TAKE 1 TABLET BY MOUTH EVERY 8 HOURS NEEDED 10/28/2014 12/01/2014 Inactive hydrocodone 7.5 mg-acetaminophen 325 mg tablet RxNorm: 933529 1 Tablet(s) PO q 6 hours prn for pain 10/21/2014 11/19/2014 Inactive gabapentin 600 mg tablet RxNorm: 030802 1.5 Tablet(s) PO TID 04/30/2015 Inactive Xanax 0.5 mg tablet RxNorm: 731850 Tablet(s) TAKE 1 TABLET BY MOUTH THREE TIMES DAILY 10/01/2014 10/30/2014 Inactive (Response to an electronic controlled substance refill request - RxReferenceNumber: [id number]|1|0|1) Xanax 0.25 mg tablet RxNorm: 032600 1 Tablet(s) PO Q8 PRN as needed 09/30/2014 09/30/2014 Inactive Lasix 20 mg tablet RxNorm: 003304 Tablet(s) TAKE 2 TABLETS BY MOUTH EVERY MORNING AND 2 TABLETS BY MOUTH AT 3 PM 09/30/2014 11/12/2014 Inactive Victoza 3-Babak 0.6 mg/0.1 mL (18 mg/3 mL) subcutaneous pen injector RxNorm: 759427 1.2 MILLIGRAM(S) SQ DAILY 0.6 X 2 WEEKS THEN INCREASE TO 1.2MG DAILY 09/26/2014 04/13/2015 Inactive Xanax 0.5 mg tablet RxNorm: 549775 TAKE 1 TABLET BY MOUTH THREE TIMES DAILY 09/25/2014 09/30/2014 Inactive (Response to an electronic controlled substance refill request - RxReferenceNumber: [id number]|1|0|1) Zofran 4 mg tablet RxNorm: 146271 TAKE 1 TABLET BY MOUTH EVERY 4 TO 6 HOURS NEEDED 09/25/2014 09/27/2014 Inactive hydrocodone 7.5 mg-acetaminophen 325 mg tablet RxNorm: 415805 1 Tablet(s) PO q 6 hours prn for pain 09/19/2014 10/18/2014 Inactive cyclobenzaprine 10 mg tablet RxNorm: 429115 TABLET(S) 1 TABLET(S) PO NEEDED TAKE 1 TABLET BY MOUTH EVERY 8 HOURS NEEDED 09/15/2014 10/27/2014 Inactive Lasix 20 mg tablet RxNorm: 064239 Tablet(s) TAKE 2 TABLETS BY MOUTH EVERY MORNING AND 2 TABLETS BY MOUTH AT 3 PM 09/08/2014 09/29/2014 Inactive Lasix 20 mg tablet RxNorm: TAKE 2 TABLETS BY MOUTH EVERY MORNING AND 2 TABLETS BY MOUTH AT 3 PM 08/21/20142014 Inactive hydrocodone 7.5 mg-acetaminophen 325 mg tablet RxNorm: 772517 1 Tablet(s) PO q 6 hours prn for pain 08/21/2014 09/18/2014 Inactive Diflucan 150 mg tablet RxNorm: 966024 1 Tablet(s) PO every other day 08/15/2014 08/17/2014 Inactive cyclobenzaprine 10 mg tablet RxNorm: 278222 Tablet(s) 1 TABLET(S) PO NEEDED TAKE 1 TABLET BY MOUTH EVERY 8 HOURS NEEDED 08/12/2014 09/14/2014 Inactive Zofran 4 mg tablet RxNorm: 814501 TAKE 1 TABLET BY MOUTH EVERY 4 TO 6 HOURS NEEDED 07/31/2014 08/02/2014 Inactive Effexor XR 37.5 mg capsule,extended release RxNorm: 762315 CAPSULE(S) PO TAKE 2 CAPSULES BY MOUTH EVERY MORNING AND 1 CAPSULE BY MOUTH EVERY NIGHT AT BEDTIME 07/28/2014 02/15/2016 Inactive Lasix 20 mg tablet RxNorm: TAKE 2 TABLETS BY MOUTH EVERY MORNING AND 2 TABLETS BY MOUTH AT 3 PM 07/22/20142014 Inactive Diflucan 150 mg tablet RxNorm: 864240 1 Tablet(s) PO daily 06/201407/23/2014 Inactive hydrocodone 7.5 mg-acetaminophen 325 mg tablet RxNorm: 339454 1 Tablet(s) PO q 6 hours prn for pain 07/14/2014 08/12/2014 Inactive Synthroid 88 mcg tablet RxNorm: 472335 1 TABLET(S) PO DAILY 10/11/2014 Inactive Effexor XR 37.5 mg capsule,extended release RxNorm: 210863 Capsule(s) PO TAKE 2 CAPSULES BY MOUTH EVERY MORNING AND 1 CAPSULE BY MOUTH EVERY NIGHT AT BEDTIME 07/07/2014 04/09/2015 Inactive Effexor XR 37.5 mg capsule,extended release RxNorm: 741409 TAKE 2 CAPSULES BY MOUTH EVERY MORNING AND 1 CAPSULE BY MOUTH EVERY NIGHT AT BEDTIME 07/07/2014 01/02/2015 Inactive WelChol 625 mg tablet RxNorm: 956956 3 TABLET(S) PO BID 201410/04/2014 Inactive WelChol 625 mg tablet RxNorm: 236623 3 Tablet(s) PO BID 201402/01/2015 Inactive Zofran 4 mg tablet RxNorm: 716470 TAKE 1 TABLET BY MOUTH EVERY 4 TO 6 HOURS NEEDED 07/03/2014 07/05/2014 Inactive Lasix 20 mg tablet RxNorm: 940154 TAKE 2 TABLETS BY MOUTH EVERY MORNING AND 2 TABLETS BY MOUTH AT 3 PM 06/26/20142014 Inactive Diflucan 150 mg tablet RxNorm: 623875 1 Tablet(s) PO daily 06/19/2014 Inactive Promethazine VC 6.25 mg-5 mg/5 mL syrup RxNorm: 1995436 1-2 Teaspoon(s) PO Q6 PRN as needed 06/12/2014 07/21/2015 Inactive hydrocodone 7.5 mg-acetaminophen 325 mg tablet RxNorm: 254310 1 Tablet(s) PO q 6 hours prn for pain 06/03/2014 07/02/2014 Inactive Levaquin 500 mg tablet RxNorm: 730388 1 Tablet(s) PO daily 01/201506/05/2014 Inactive cyclobenzaprine 10 mg tablet RxNorm: 392849 Tablet(s) 1 TABLET(S) PO NEEDED TAKE 1 TABLET BY MOUTH EVERY 8 HOURS NEEDED 05/26/2014 No Stop Date Active cyclobenzaprine 10 mg tablet RxNorm: 973377 1 TABLET(S) PO NEEDED TAKE 1 TABLET BY MOUTH EVERY 8 HOURS NEEDED 05/26/2014 08/11/2014 Inactive Lasix 20 mg tablet RxNorm: 184477 Tablet(s) TABLET(S) PO TAKE 2 TABLETS BY MOUTH EVERY MORNING AND 2 TABLET BY MOUTH AT 3 PM 05/12/2014 06/25/2014 Inactive Combivent Respimat 20 mcg-100 mcg/actuation solution for inhalation RxNorm: 1143348 INHALE 1 PUFF BY MOUTH FOUR TIMES DAILY 05/12/2014 11/07/2014 Inactive fluconazole 150 mg tablet RxNorm: 279286 1 Tablet(s) PO UD 05/12/2014 Inactive 1 tab every other day x 5 doses Activella 0.5 mg-0.1 mg tablet RxNorm: 6396532 1 TABLET(S) PO DAILY TAKE 1 TABLET BY MOUTH DAILY FOR MENOPAUSAL SYMPTOM 05/02/2014 09/21/2015 Inactive hydrocodone 7.5 mg-acetaminophen 300 mg tablet RxNorm: 581984 Tablet(s) PO TAKE 1 TABLET BY MOUTH EVERY 6 HOURS NEEDED FOR PAIN 04/21/2014 06/03/2014 Inactive ( Appended: Controlled substance eRx refill - RxReferenceNumber: [id number]|1|0|1 ) Levaquin 500 mg tablet RxNorm: 862460 1 Tablet(s) PO daily 04/21/2014 Inactive Diflucan 150 mg tablet RxNorm: 095028 1 Tablet(s) PO every other day x 4 doses 04/10/2014 06/16/2014 Inactive Lasix 20 mg tablet RxNorm: 321517 TAKE 2 TABLETS BY MOUTH EVERY MORNING AND 1 TABLET BY MOUTH AT 3 PM 04/10/20142013 Inactive potassium chloride ER 10 mEq tablet,extended release RxNorm: 680576 1 TABLET(S) PO QDAY PRN TAKE WITH LASIX 04/09/2014 Inactive Levaquin 250 mg tablet RxNorm: 194707 1 Tablet(s) PO daily 08/201304/07/2014 Inactive 2 tabs today then 1 tab daily until gone atorvastatin 40 mg tablet RxNorm: 780465 1 Tablet(s) daily 1 TABLET(S) PO DAILY 03/25/2014 04/10/2016 Inactive TAKE 1 TABLET BY MOUTH DAILY (THIS IS AN INCREASE IN DOSAGE) Zofran 4 mg tablet RxNorm: 048703 1 Tablet(s) PO Q4-6H 201307/02/2014 Inactive Xanax 0.5 mg tablet RxNorm: 005658 TAKE 1 TABLET BY MOUTH THREE TIMES DAILY NEEDED 03/19/2014 04/17/2014 Inactive (Response to an electronic controlled substance refill request - RxReferenceNumber: [id number]|1|0|1) hydrocodone 7.5 mg-acetaminophen 300 mg tablet RxNorm: 519383 Tablet(s) PO TAKE 1 TABLET BY MOUTH EVERY 6 HOURS NEEDED FOR PAIN 03/19/2014 04/20/2014 Inactive ( Appended: Controlled substance eRx refill - RxReferenceNumber: [id number]|1|0|1 ) atorvastatin 40 mg tablet RxNorm: 138286 1 TABLET(S) PO DAILY 03/10/2014 03/24/2014 Inactive TAKE 1 TABLET BY MOUTH DAILY (THIS IS AN INCREASE IN DOSAGE) WelChol 625 mg tablet RxNorm: 303667 3 Tablet(s) PO BID 201303/06/2014 Inactive WelChol 625 mg tablet RxNorm: 962660 3 Tablet(s) PO BID 201307/04/2014 Inactive Lasix 20 mg tablet RxNorm: 338588 Tablet(s) TABLET(S) PO TAKE 2 TABLETS BY MOUTH EVERY MORNING AND 2 TABLET BY MOUTH AT 3 PM 03/03/2014 05/11/2014 Inactive Lasix 20 mg tablet RxNorm: 413629 TABLET(S) PO TAKE 2 TABLETS BY MOUTH EVERY MORNING AND 1 TABLET BY MOUTH AT 3 PM 02/20/2014 03/02/2014 Inactive gabapentin 600 mg tablet RxNorm: 717560 1.5 Tablet(s) PO TID 09/16/2014 Inactive Synthroid 88 mcg tablet RxNorm: 105778 1 TABLET(S) PO DAILY 05/18/2014 Inactive cyclobenzaprine 10 mg tablet RxNorm: 772155 1 TABLET(S) PO NEEDED TAKE 1 TABLET BY MOUTH EVERY 8 HOURS NEEDED 02/18/2014 05/25/2014 Inactive doxycycline hyclate 100 mg tablet RxNorm: 524498 1 Tablet(s) PO BID 02/13/2014 02/22/2014 Inactive Bactroban 2 % topical ointment RxNorm: 469027 1 Application TOP BID 02/13/2014 03/12/2014 Inactive Victoza 3-Babak 0.6 mg/0.1 mL (18 mg/3 mL) subcutaneous pen injector RxNorm: 796479 1.2 MILLIGRAM(S) SQ DAILY 0.6 X 2 WEEKS THEN INCREASE TO 1.2MG DAILY 02/10/2014 05/10/2014 Inactive albuterol sulfate 1.25 mg/3 mL solution for nebulization RxNorm: 132062 3 MILLILITER(S) INH TID 02/07/20142014 Inactive 1 box Victoza 3-Babak 0.6 mg/0.1 mL (18 mg/3 mL) subcutaneous pen injector RxNorm: 242442 1.8 Milligram(s) SQ daily 0.6 x 2 weeks then increase to 1.2mg daily 01/27/2014 05/26/2014 Inactive Levemir Flexpen 100 unit/mL (3 mL) solution subcutaneous insulin pen RxNorm: 339924 5units sq at hs, increase by 3 Unit(s) SQ at hs every 3days, goal FSBS 170 or less, do not increase above 20units, call doctor with report 01/27/2014 05/26/2014 Inactive hydrocodone 7.5 mg-acetaminophen 300 mg tablet RxNorm: 348886 Tablet(s) PO TAKE 1 TABLET BY MOUTH EVERY 6 HOURS NEEDED FOR PAIN 01/24/2014 03/18/2014 Inactive ( Appended: Controlled substance eRx refill - RxReferenceNumber: [id number]|1|0|1 ) Xanax 0.5 mg tablet RxNorm: 773225 1 Tablet(s) PO TID PRN as needed 01/24/2014 09/21/2014 Inactive (Appended: Controlled substance eRx refill - RxReferenceNumber: [id number]|1|0|1) Xanax 0.5 mg tablet RxNorm: 877761 TAKE 1 TABLET BY MOUTH THREE TIMES DAILY NEEDED 01/23/2014 02/21/2014 Inactive (Response to an electronic controlled substance refill request - RxReferenceNumber: [id number]|1|0|1) hydrocodone 5 mg-acetaminophen 325 mg tablet RxNorm: 510471 TAKE 1 TABLET BY MOUTH EVERY 6 HOURS NEEDED FOR PAIN 01/21/2014 02/19/2014 Inactive (Response to an electronic controlled substance refill request - RxReferenceNumber: [id number]| [id number]|1|0|1) Lasix 20 mg tablet RxNorm: 210100 TAKE 2 TABLETS BY MOUTH EVERY MORNING AND 1 TABLET BY MOUTH AT 3 PM 01/17/20142013 Inactive cyclobenzaprine 10 mg tablet RxNorm: 645584 1 Tablet(s) PO as needed TAKE 1 TABLET BY MOUTH EVERY 8 HOURS NEEDED 01/13/2014 02/17/2014 Inactive Anusol-HC 25 mg suppository RxNorm: 2885707 1 SUPPOSITORY RTL PRN ONE PER RECTUM NEEDED, UP TO TWICE DAILY FOR HEMORRHOID, NO MORE THAN 7 DAYS IN A ROW 01/10/2014 02/06/2014 Inactive Activella 0.5 mg-0.1 mg tablet RxNorm: 9186399 1 Tablet(s) PO daily TAKE 1 TABLET BY MOUTH DAILY FOR MENOPAUSAL SYMPTOM 01/08/2014 05/01/2014 Inactive gabapentin 600 mg tablet RxNorm: 882074 1.5 Tablet(s) PO TID 02/18/2014 Inactive gabapentin 600 mg tablet RxNorm: 098356 1.5 Tablet(s) PO TID 01/01/2014 Inactive hydrocodone 7.5 mg-acetaminophen 300 mg tablet RxNorm: 014375 Tablet(s) PO TAKE 1 TABLET BY MOUTH EVERY 6 HOURS NEEDED FOR PAIN 12/12/2013 01/23/2014 Inactive ( Appended: Controlled substance eRx refill - RxReferenceNumber: [id number]|1|0|1 ) Levaquin 250 mg tablet RxNorm: 327132 1 Tablet(s) PO daily 12/18/2013 Inactive 2 tabs today then 1 tab daily until gone Diflucan 150 mg tablet RxNorm: 798925 1 Tablet(s) PO daily 12/16/2013 Inactive do not stat until levaquin is completed Cartia XT 180 mg capsule,extended release RxNorm: 377399 1 CAPSULE(S) PO DAILY TAKE 1 CAPSULE BY MOUTH AT BEDTIME ..TAKE THIS IN ADDITION TO 240 MG IN THE MORNING 12/12/2013 12/06/2014 Inactive diltiazem ER (XR/XT) 240 mg capsule,extended release, controlled RxNorm: 737805 1 Capsule(s) PO daily TAKE 1 CAPSULE BY MOUTH EVERY DAY 11/28/2014 Inactive Effexor XR 37.5 mg capsule,extended release RxNorm: 747566 Capsule(s) PO TAKE 2 CAPSULES BY MOUTH EVERY MORNING AND 1 CAPSULE BY MOUTH EVERY NIGHT AT BEDTIME 12/04/2013 07/06/2014 Inactive Lasix 20 mg tablet RxNorm: TABLET(S) PO TAKE 2 TABLETS BY MOUTH EVERY MORNING AND 1 TABLET BY MOUTH AT 3 PM 12/04/2013 12/09/2014 Inactive Voltaren 1 % topical gel RxNorm: 769020 4 Gram(s) TOP QID 11/2703/26/2014 Inactive Cartia XT 180 mg capsule,extended release RxNorm: 577611 1 Capsule(s) PO daily TAKE 1 CAPSULE BY MOUTH AT BEDTIME ..TAKE THIS IN ADDITION TO 240 MG IN THE MORNING 11/27/2013 01/12/2015 Inactive Lasix 20 mg tablet RxNorm: TABLET(S) PO TAKE 2 TABLETS BY MOUTH EVERY MORNING AND 1 TABLET BY MOUTH AT 3 PM 11/26/2013 02/19/2014 Inactive colestipol 1 gram tablet RxNorm: 1688118 1 Tablet(s) PO BID TAKE 1 TABLET BY MOUTH TWICE DAILY 11/26/2013 11/20/2014 Inactive cyclobenzaprine 10 mg tablet RxNorm: 209136 Tablet(s) PO TAKE 1 TABLET BY MOUTH EVERY 8 HOURS NEEDED 11/21/20132013 Inactive Diflucan 150 mg tablet RxNorm: 398649 1 Tablet(s) PO daily TAKE 1 TABLET BY MOUTH EVERY OTHER DAY FOR 8 DOSES 11/14/201306/2013 Inactive peak flow meter-inh assist dev kit RxNorm: 1 dose Miscellaneous PRN 11/14/2013 10/27/2017 Inactive Effexor XR 37.5 mg capsule,extended release RxNorm: 291509 Capsule(s) PO TAKE 2 CAPSULES BY MOUTH EVERY MORNING AND 1 CAPSULE BY MOUTH EVERY NIGHT AT BEDTIME 11/04/2013 12/03/2013 Inactive Anusol-HC 25 mg suppository RxNorm: 2673282 1 Suppository RTL PRN one per rectum as needed, up to twice daily for hemorrhoid, no more than 7 days in a row 10/23/2013 10/22/2013 Inactive Anusol-HC 25 mg suppository RxNorm: 7069052 1 Suppository RTL PRN one per rectum as needed, up to twice daily for hemorrhoid, no more than 7 days in a row 10/23/2013 01/09/2014 Inactive Activella 0.5 mg-0.1 mg tablet RxNorm: 7414771 Tablet(s) PO TAKE 1 TABLET BY MOUTH DAILY FOR MENOPAUSAL SYMPTOM 10/21/2013 01/07/2014 Inactive cyclobenzaprine 10 mg tablet RxNorm: 039452 Tablet(s) PO TAKE 1 TABLET BY MOUTH EVERY 8 HOURS NEEDED 10/21/20132013 Inactive Lasix 20 mg tablet RxNorm: Tablet(s) PO TAKE 2 TABLETS BY MOUTH EVERY MORNING AND 1 TABLET BY MOUTH AT 3 PM 10/17/2013 02/25/2016 Inactive Bactroban 2 % topical ointment RxNorm: 748992 1 Application TOP BID 10/10/2013 11/06/2013 Inactive Zofran 4 mg tablet RxNorm: 823244 1 Tablet(s) PO Q4-6H 201303/20/2014 Inactive Bactroban 2 % topical ointment RxNorm: 205498 1 Application TOP BID 09/27/2013 10/09/2013 Inactive hydrocodone 5 mg-acetaminophen 325 mg tablet RxNorm: 034755 Tablet(s) PO TAKE 1 TABLET BY MOUTH EVERY 6 HOURS NEEDED FOR PAIN 09/26/2013 12/11/2013 Inactive ( Appended: Controlled substance eRx refill - RxReferenceNumber: [id number]|1|0|1 ) hydrocodone 5 mg-acetaminophen 325 mg tablet RxNorm: 689317 1 Tablet(s) PO Q6 PRN 09/26/2013 01/24/2014 Inactive cyclobenzaprine 10 mg tablet RxNorm: 332227 Tablet(s) PO TAKE 1 TABLET BY MOUTH EVERY 8 HOURS NEEDED 09/16/2013 No Stop Date Active omeprazole 20 mg capsule,delayed release RxNorm: 250285 Capsule(s) PO TAKE 1 CAPSULE BY MOUTH TWICE DAILY 09/02/2013 Inactive Lasix 20 mg tablet RxNorm: 536773 Tablet(s) PO TAKE 2 TABLETS BY MOUTH EVERY MORNING AND 1 TABLET BY MOUTH AT 3 PM 09/02/2013 04/10/2016 Inactive Diflucan 150 mg tablet RxNorm: 065191 Tablet(s) PO TAKE 1 TABLET BY MOUTH EVERY OTHER DAY FOR 8 DOSES 08/29/20132013 Inactive Effexor XR 37.5 mg capsule,extended release RxNorm: 805194 Capsule(s) PO TAKE 2 CAPSULES BY MOUTH EVERY MORNING AND 1 CAPSULE BY MOUTH EVERY NIGHT AT BEDTIME 08/29/2013 11/03/2013 Inactive diltiazem ER (XR/XT) 240 mg capsule,extended release, controlled RxNorm: 093165 Capsule(s) PO TAKE 1 CAPSULE BY MOUTH EVERY DAY 201312/03/2013 Inactive Xanax 0.5 mg tablet RxNorm: 078527 1 Tablet(s) PO TID PRN 11/2013 No Stop Date Active (Appended: Controlled substance eRx refill - RxReferenceNumber: [id number]| [id number]|1|0|1) colestipol 1 gram tablet RxNorm: 7201990 Tablet(s) PO TAKE 1 TABLET BY MOUTH TWICE DAILY 08/26/2013 11/25/2013 Inactive Victoza 3-Babak 0.6 mg/0.1 mL (18 mg/3 mL) subcutaneous pen injector RxNorm: 448168 1.2 Milligram(s) SQ daily 0.6 x 2 weeks then increase to 1.2mg daily 08/19/2013 12/16/2013 Inactive Synthroid 88 mcg tablet RxNorm: 705088 1 Tablet(s) PO daily 12/09/2013 Inactive Lasix 20 mg tablet RxNorm: Tablet(s) PO TAKE 2 TABLETS BY MOUTH EVERY MORNING AND 2 TABLETS BY MOUTH AT 3 PM 08/12/2013 10/18/2016 Inactive Xanax 0.5 mg tablet RxNorm: 731896 1 Tablet(s) PO TID PRN No Stop Date Active (Appended: Controlled substance eRx refill - RxReferenceNumber: [id number]| [id number]|1|0|1) Lasix 20 mg tablet RxNorm: Tablet(s) PO TAKE 2 TABLETS BY MOUTH EVERY MORNING AND 1 TABLET BY MOUTH AT 3 PM 08/07/2013 08/11/2013 Inactive Voltaren 1 % topical gel RxNorm: 578374 4 Gram(s) TOP QID 08/0111/26/2013 Inactive Zyvox 600 mg tablet RxNorm: 458148 1 Tablet(s) PO BID 201307/27/2013 Inactive please call the office is this is too expensive for the pt Zyvox 600 mg tablet RxNorm: 950480 1 Tablet(s) PO BID 201307/17/2013 Inactive hydrocodone 5 mg-acetaminophen 325 mg tablet RxNorm: 7230484 1 Tablet(s) PO Q6 PRN 07/15/2013 09/26/2013 Inactive Zofran 4 mg tablet RxNorm: 978951 1 Tablet(s) PO Q4-6H 201310/02/2013 Inactive Lasix 20 mg tablet RxNorm: 742488 Tablet(s) PO TAKE 2 TABLETS BY MOUTH EVERY MORNING AND 1 TABLET BY MOUTH AT 3 PM 07/11/2013 10/18/2016 Inactive cyclobenzaprine 10 mg tablet RxNorm: 223758 1 Tablet(s) PO Q8 PRN 06/27/2013 08/25/2013 Inactive gabapentin 600 mg tablet RxNorm: 312173 1.5 Tablet(s) PO TID 01/02/2014 Inactive Lasix 20 mg tablet RxNorm: 216770 Tablet(s) PO TAKE 2 TABLETS BY MOUTH EVERY MORNING AND 1 TABLET BY MOUTH AT 3 PM 06/17/2013 07/10/2013 Inactive hydrocodone 5 mg-acetaminophen 325 mg tablet RxNorm: 098829 1 Tablet(s) PO Q6 PRN 06/10/2013 07/14/2013 Inactive hydrocortisone 2.5 % rectal cream RxNorm: 497402 1 Suppository RTL BID PRN 06/10/2013 06/29/2013 Inactive Flexeril 10 mg tablet RxNorm: 530752 1 Tablet(s) PO Q8 PRN 06/0406/26/2013 Inactive diltiazem ER (XR/XT) 240 mg capsule,extended release, controlled RxNorm: 654241 Capsule(s) PO TAKE 1 CAPSULE BY MOUTH EVERY DAY 201310/26/2017 Inactive omeprazole 20 mg capsule,delayed release RxNorm: 713666 Capsule(s) PO TAKE 1 CAPSULE BY MOUTH TWICE DAILY 05/24/2013 Inactive colestipol 1 gram tablet RxNorm: 5986471 Tablet(s) PO TAKE 1 TABLET BY MOUTH TWICE DAILY 05/23/2013 04/21/2016 Inactive Januvia 100 mg tablet RxNorm: 666184 1 Tablet(s) PO daily 201308/18/2013 Inactive Activella 0.5 mg-0.1 mg tablet RxNorm: 722344 Tablet(s) PO TAKE 1 TABLET BY MOUTH DAILY FOR MENOPAUSAL SYMPTOM 05/17/2013 Inactive Xanax 0.5 mg tablet RxNorm: 652320 1 Tablet(s) PO TID PRN 08/06/2013 Inactive (Appended: Controlled substance eRx refill - RxReferenceNumber: [id number]| [id number]|1|0|1) Kenalog 40 mg/mL suspension for injection RxNorm: 9726776 Milliliter(s) Inj 05/07/2013 05/07/2013 Inactive levofloxacin 500 mg tablet RxNorm: 662164 1 Tablet(s) PO daily pt to take 500mg on day#1, 3, 5, 7 and 1/2 tablet on days 2, 4, 6, and 8 05/0705/14/2013 Inactive Lyrica 50 mg capsule RxNorm: 784375 1 Capsule(s) PO TID 201206/26/2013 Inactive hydrocodone 5 mg-acetaminophen 500 mg tablet RxNorm: 718746 1 Tablet(s) PO Q6 PRN 04/22/2013 06/09/2013 Inactive Zofran 4 mg tablet RxNorm: 907962 1 Tablet(s) PO Q4-6H 201207/14/2013 Inactive Zofran 4 mg tablet RxNorm: 333830 1 Tablet(s) PO Q6 PRN 04/0404/08/2013 Inactive hydrocodone 5 mg-acetaminophen 500 mg tablet RxNorm: 158429 1 Tablet(s) PO Q6 PRN 03/21/2013 04/21/2013 Inactive Diflucan 150 mg tablet RxNorm: 834448 1 Tablet(s) PO every other day 1 pill po every other day x 8 doses 03/19/201306/26 Inactive potassium chloride ER 10 mEq tablet,extended release RxNorm: 852925 1 Tablet(s) PO QDAY PRN take with lasix 03/07/201302/2014 Inactive potassium chloride ER 10 mEq tablet,extended release RxNorm: 634658 1 Tablet(s) PO QDAY PRN take with lasix 03/04/2013 Inactive fluconazole 150 mg tablet RxNorm: 543136 1 Tablet(s) PO daily 03/01/2013 02/28/2013 Inactive fluconazole 150 mg tablet RxNorm: 348903 1 Tablet(s) PO daily 03/01/2013 03/05/2013 Inactive Combivent 18 mcg-103 mcg/actuation Aerosol Inhaler RxNorm: 038577 2 Puff(s) INH QID 02/12/2013 02/12/2013 Inactive Zofran 4 mg tablet RxNorm: 366793 1 Tablet(s) PO Q6 PRN 02/1104/03/2013 Inactive Lasix 20 mg tablet RxNorm: 202057 1 Tablet(s) PO BID one pill in morning and one pill in afternoon (3pm) 02/04/2013 Inactive Xopenex HFA 45 mcg/actuation Aerosol Inhaler RxNorm: 834032 2 INH QID 01/29/2013 09/21/2015 Inactive Effexor XR 37.5 mg capsule,extended release RxNorm: 861389 2 q am and 1 at hs Capsule(s) PO TAKE 2 CAPSULES BY MOUTH EVERY MORNING AND 1 CAPSULE EVERY NIGHT AT BEDTIME 01/29/2013 02/15/2016 Inactive fluconazole 150 mg tablet RxNorm: 485895 1 Tablet(s) PO daily 01/29/2013 02/02/2013 Inactive hydrocodone 5 mg-acetaminophen 500 mg tablet RxNorm: 303999 1 Tablet(s) PO Q6 PRN 01/29/2013 03/20/2013 Inactive Effexor XR 37.5 mg capsule,extended release RxNorm: 041507 Capsule(s) PO 01/29/2013 08/28/2013 Inactive TAKE 2 CAPSULES BY MOUTH EVERY MORNING AND 1 CAPSULE EVERY NIGHT AT BEDTIME doxycycline hyclate 100 mg tablet RxNorm: 949558 1 Tablet(s) PO BID 01/01/2013 01/10/2013 Inactive doxycycline hyclate 100 mg tablet RxNorm: 446103 1 Tablet(s) PO BID 01/01/2013 12/31/2012 Inactive Synthroid 75 mcg tablet RxNorm: 398996 1 Tablet(s) PO daily 06/29/2013 Inactive Synthroid 75 mcg tablet RxNorm: 382932 1 Tablet(s) PO daily 12/31/2012 Inactive Xanax 0.5 mg tablet RxNorm: 059526 Tablet(s) PO TAKE 1/2 TO 1 TABLET BY MOUTH EVERY 8 HOURS NEEDED FOR ANXIETY 12/27/2012 05/06/2013 Inactive (Appended: Controlled substance eRx refill - RxReferenceNumber: [id number]|1|0|1) Lasix 20 mg tablet RxNorm: 620240 1 Tablet(s) PO daily 201202/03/2013 Inactive Santyl 250 unit/gram Topical Ointment RxNorm: 9017160 1 Application TOP daily 12/20/2012 12/29/2012 Inactive Levaquin 500 mg tablet RxNorm: 086842 1 Tablet(s) PO daily 05/201212/26/2012 Inactive acyclovir 400 mg tablet RxNorm: 909557 1 Tablet(s) PO TID 12/0312/09/2012 Inactive acyclovir 400 mg tablet RxNorm: 384555 1 Tablet(s) PO TID 12/0312/02/2012 Inactive fluconazole 150 mg tablet RxNorm: 146748 1 Tablet(s) PO daily 11/26/2012 11/30/2012 Inactive Effexor XR 37.5 mg capsule,extended release RxNorm: 474164 Capsule(s) PO TAKE 2 CAPSULES BY MOUTH EVERY MORNING AND 1 CAPSULE EVERY NIGHT AT BEDTIME 11/14/2012 01/28/2013 Inactive albuterol sulfate 1.25 mg/3 mL solution for nebulization RxNorm: 340362 3 Milliliter(s) INH TID 10/29/20122012 Inactive 1 box Cartia XT 180 mg capsule,extended release RxNorm: 129975 1 Capsule(s) PO daily TAKE 1 CAPSULE BY MOUTH AT BEDTIME ..TAKE THIS IN ADDITION TO 240 MG IN THE MORNING 10/29/2012 11/26/2013 Inactive acyclovir 800 mg tablet RxNorm: 502576 1 Tablet(s) PO BID 10/2911/04/2012 Inactive Diflucan 150 mg tablet RxNorm: 813561 1 Tablet(s) PO daily 10/14/2012 Inactive TAKE 1 TABLET BY MOUTH EVERY DAY Toprol XL 100 mg tablet,extended release RxNorm: 174620 1 Tablet(s) PO BID 10/11/2012 09/05/2013 Inactive Zithromax Z-Babak 250 mg tablet RxNorm: 628874 Tablet(s) PO UD as directed. 1 refill , please take back to back 10/05/2012 No Stop Date Active Kenalog 40 mg/mL Susp for Injection RxNorm: 8837731 1 Milliliter(s) Inj QID 09/21/2012 05/07/2013 Inactive fluconazole 150 mg tablet RxNorm: 173492 1 Tablet(s) PO every other day x 5 doses 09/12/2012 11/25/2012 Inactive levothyroxine 50 mcg tablet RxNorm: 864266 1 Tablet(s) PO daily 09/06/2012 12/31/2012 Inactive atorvastatin 40 mg tablet RxNorm: 038935 1 Tablet(s) PO daily 09/06/2012 08/31/2013 Inactive TAKE 1 TABLET BY MOUTH DAILY (THIS IS AN INCREASE IN DOSAGE) Xanax 0.5 mg tablet RxNorm: 771058 Tablet(s) PO TAKE 1/2 TO 1 TABLET BY MOUTH EVERY 8 HOURS NEEDED FOR ANXIETY 08/27/2012 12/26/2012 Inactive (Appended: Controlled substance eRx refill - RxReferenceNumber: [id number]|1|0|1) Zofran 4 mg tablet RxNorm: 282017 1 Tablet(s) PO Q6 PRN 08/1302/10/2013 Inactive Cipro 500 mg tablet RxNorm: 458683 1 Tablet(s) PO BID 201208/07/2012 Inactive Cipro 500 mg tablet RxNorm: 110641 1 Tablet(s) PO BID 201208/12/2012 Inactive Flagyl 500 mg tablet RxNorm: 126928 1 Tablet(s) PO TID 201208/12/2012 Inactive cefdinir 300 mg capsule RxNorm: 160508 1 Capsule(s) PO BID 08/201207/29/2012 Inactive nystatin 100,000 unit/mL Oral Susp RxNorm: 845941 6 Unit(s) PO QID 07/06/2012 07/15/2012 Inactive Kenalog 40 mg/mL Susp for Injection RxNorm: 2200297 1 Milliliter(s) Inj 07/06/2012 07/06/2012 Inactive Zithromax 500 mg tablet RxNorm: 5987946 1 Tablet(s) PO daily 07/10/2012 Inactive metformin 850 mg tablet RxNorm: 577116 1/2 Tablet(s) PO TID 09/201208/24/2012 Inactive TAKE 1 TABLET BY MOUTH IN THE MORNING, 1/2 TABLET AT NOON, AND 1 TABLET IN THE EVENING Lyrica 50 mg capsule RxNorm: 857793 1 Capsule(s) PO TID 201206/25/2012 Inactive Diflucan 150 mg tablet RxNorm: 759887 1 Tablet(s) PO daily 05/201206/25/2012 Inactive TAKE 1 TABLET BY MOUTH EVERY DAY Levaquin 500 mg tablet RxNorm: 374564 1 Tablet(s) PO daily 06/19/2012 Inactive Pneumovax 23 25 mcg/0.5 mL Injection RxNorm: 164202 1/2 Milliliter(s) Inj 06/07/2012 06/07/2012 Inactive metformin 850 mg tablet RxNorm: 021073 1/2 Tablet(s) PO BID 06/25/2012 Inactive TAKE 1 TABLET BY MOUTH IN THE MORNING, 1/2 TABLET AT NOON, AND 1 TABLET IN THE EVENING cefdinir 300 mg capsule RxNorm: 099858 1 Capsule(s) PO BID 02/201305/30/2012 Inactive cefdinir 300 mg capsule RxNorm: 196636 1 Capsule(s) PO BID 02/201306/06/2012 Inactive prednisone 10 mg tablets in a dose pack RxNorm: 813420 Tablet(s) PO UD 6-5-4-3-2- 1 05/31/2012 05/06/2013 Inactive Cipro 500 mg tablet RxNorm: 612935 1 Tablet(s) PO BID 201206/03/2012 Inactive Xanax 0.5 mg tablet RxNorm: 595170 Tablet(s) PO TAKE 1/2 TO 1 TABLET BY MOUTH EVERY 8 HOURS NEEDED FOR ANXIETY 05/28/2012 08/27/2012 Inactive (Appended: Controlled substance eRx refill - RxReferenceNumber: [id number]|1|0|1) Cartia XT 180 mg capsule,extended release RxNorm: 140642 Capsule(s) PO TAKE 1 CAPSULE BY MOUTH AT BEDTIME ..TAKE THIS IN ADDITION TO 240 MG IN THE MORNING 05/24/2012 10/28/2012 Inactive Diflucan 150 mg tablet RxNorm: 570703 1 Tablet(s) PO daily 06/201205/26/2012 Inactive TAKE 1 TABLET BY MOUTH EVERY DAY Cartia XT 240 mg capsule,extended release RxNorm: 588902 1 Capsule(s) PO QAM 05/23/2012 09/06/2012 Inactive in addition to 180mg q pm omeprazole 20 mg capsule,delayed release RxNorm: 517773 Capsule(s) PO TAKE 1 CAPSULE BY MOUTH TWICE DAILY 05/21/2012 Inactive diltiazem ER (XR/XT) 240 mg capsule,extended release, controlled RxNorm: 733731 1 Capsule(s) PO daily TAKE ONE CAPSULE BY MOUTH EVERY DAY 05/21/2012 05/30/2013 Inactive Toprol XL 25 mg tablet,extended release RxNorm: 211105 1 Tablet(s) PO QPM take with 50mg (1/2 tab of 100mg) each evening. Continue 100mg in the morning. 05/17/2012 05/27/2012 Inactive Activella 0.5 mg-0.1 mg tablet RxNorm: 8513570 Tablet(s) PO TAKE 1 TABLET BY MOUTH DAILY FOR MENOPAUSAL SYMPTOM 05/09/2012 05/16/2013 Inactive colestipol 1 gram tablet RxNorm: 1620269 Tablet(s) PO TAKE 1 TABLET BY MOUTH TWICE DAILY 05/08/2012 04/21/2016 Inactive Kenalog 40 mg/mL Susp for Injection RxNorm: 5660487 1 Milliliter(s) Inj 05/02/2012 05/02/2012 Inactive Xanax 0.5 mg tablet RxNorm: 475005 Tablet(s) PO 04/16/2012 05/28/2012 Inactive TAKE 1/2 TO 1 TABLET BY MOUTH EVERY 8 HOURS NEEDED FOR ANXIETY (Appended: Controlled substance eRx refill - RxReferenceNumber: [id number]|1|0|1) Diflucan 150 mg tablet RxNorm: 835172 1 Tablet(s) PO daily 05/22/2012 Inactive TAKE 1 TABLET BY MOUTH EVERY DAY Cipro 500 mg tablet RxNorm: 121609 1 Tablet(s) PO BID 201104/19/2012 Inactive Zithromax Z-Babak 250 mg tablet RxNorm: 419743 Tablet(s) PO UD 05/30/2012 Inactive metformin 850 mg tablet RxNorm: 853940 Tablet(s) PO take one pill by mouth in AM, 1/2 at noon, and 1 pill in the evening. 03/16/2012 06/06/2012 Inactive TAKE 1 TABLET BY MOUTH IN THE MORNING, 1/2 TABLET AT NOON, AND 1 TABLET IN THE EVENING Xanax 0.5 mg tablet RxNorm: 433493 Tablet(s) PO 03/05/2012 04/15/2012 Inactive TAKE 1/2 TO 1 TABLET BY MOUTH EVERY 8 HOURS NEEDED FOR ANXIETY (Appended: Controlled substance eRx refill - RxReferenceNumber: [id number]|1|0|1) potassium chloride ER 10 mEq tablet,extended release RxNorm: 946731 1 Tablet(s) PO QDAY PRN take with lasix 03/05/201204/2013 Inactive potassium chloride ER 10 mEq tablet,extended release RxNorm: 390012 1 Tablet(s) PO QDAY PRN take with lasix 02/28/2012 Inactive Lasix 20 mg tablet RxNorm: 950832 Tablet(s) PO QDAY PRN 02/2708/25/2012 Inactive doxycycline hyclate 100 mg capsule RxNorm: 095172 1 Capsule(s) PO BID 02/27/2012 03/04/2012 Inactive Effexor XR 37.5 mg capsule,extended release RxNorm: 247111 Capsule(s) PO 02/26/2012 01/28/2013 Inactive TAKE 2 CAPSULES BY MOUTH EVERY MORNING AND 1 CAPSULE EVERY NIGHT AT BEDTIME Lomotil 2.5 mg-0.025 mg tablet RxNorm: 8177227 Tablet(s) PO 07/201103/05/2012 Inactive 1 after each loose bm limit 4 per day doxycycline hyclate 100 mg capsule RxNorm: 727486 1 Capsule(s) PO BID 02/15/2012 02/21/2012 Inactive Diflucan 150 mg tablet RxNorm: 177500 Tablet(s) PO daily 201102/21/2012 Inactive TAKE 1 TABLET BY MOUTH EVERY DAY colestipol,micronized 1 gram tablet RxNorm: 9488832 Tablet(s) PO 02/06/2012 04/21/2016 Inactive TAKE 1 TABLET BY MOUTH TWICE DAILY Effexor XR 37.5 mg capsule,extended release RxNorm: 109969 Capsule(s) PO 02/06/2012 02/16/2016 Inactive TAKE 2 CAPSULES BY MOUTH EVERY MORNING AND 1 CAPSULE EVERY NIGHT AT BEDTIME potassium chloride ER 10 mEq tablet,extended release RxNorm: 130062 1 Tablet(s) PO QDAY PRN take with lasix 02/01/201212/2011 Inactive Levaquin 500 mg tablet RxNorm: 852616 1 Tablet(s) PO daily 04/201202/07/2012 Inactive Diflucan 150 mg tablet RxNorm: 012771 Tablet(s) PO 01/27/2012 02/14/2012 Inactive TAKE 1 TABLET BY MOUTH EVERY DAY Effexor XR 37.5 mg capsule,extended release RxNorm: 785561 Capsule(s) PO 01/05/2012 02/05/2012 Inactive TAKE 2 CAPSULES BY MOUTH EVERY MORNING , AND 1 CAPSULE BY MOUTH EVERY NIGHT AT BEDTIME Effexor XR 37.5 mg capsule,extended release RxNorm: 343696 Capsule(s) PO 12/29/2011 01/04/2012 Inactive TAKE 2 CAPSULES BY MOUTH EVERY MORNING , AND 1 CAPSULE BY MOUTH EVERY NIGHT AT BEDTIME Diflucan 150 mg tablet RxNorm: 657539 Tablet(s) PO 12/29/2011 04/09/2012 Inactive TAKE 1 TABLET BY MOUTH EVERY DAY Cipro 500 mg tablet RxNorm: 700909 1 Tablet(s) PO BID 201101/07/2012 Inactive Toprol XL 100 mg tablet,extended release RxNorm: 801406 Tablet(s) PO as doctor directed one tab in am and 1/2 at night 11/30/2011 10/10/2012 Inactive Phenergan 25 mg/mL Injection RxNorm: 248725 Milliliter(s) Inj 11/30/2011 11/30/2011 Inactive Toprol XL 100 mg 24 hr Tab RxNorm: 322075 1.5 Tablet(s) PO as doctor directed one tab in am and 1/2 at night 11/17/201102/2012 Inactive Xopenex HFA 45 mcg/actuation Aerosol Inhaler RxNorm: 625381 2 INH QID 11/08/2011 12/01/2012 Inactive Effexor XR 150 mg 24 hr Cap RxNorm: 018915 1 Capsule(s) PO daily 10/24/2011 01/04/2012 Inactive Xanax 0.5 mg tablet RxNorm: 918935 1/2-1 Tablet(s) PO Q8 PRN 10/20/2011 03/05/2012 Inactive levothyroxine 25 mcg tablet RxNorm: 255491 Tablet(s) PO 201109/05/2012 Inactive TAKE 1 TABLET BY MOUTH DAILY Xanax 0.5 mg Tab RxNorm: 748882 1/2-1 Tablet(s) PO Q8 PRN 09/26/2011 10/19/2011 Inactive potassium chloride ER 10 mEq Tab RxNorm: 293029 1 Tablet(s) PO daily 09/20/2011 09/24/2011 Inactive Lasix 20 mg Tab RxNorm : 333546 1 Tablet(s) PO daily 09/20/2011 09/24/2011 Inactive Xanax 0.5 mg Tab RxNorm: 039431 1/2-1 Tablet(s) PO Q8 PRN 09/12/2011 09/25/2011 Inactive Xanax 0.5 mg Tab RxNorm: 591952 1/2-1 Tablet(s) PO Q8 PRN 08/24/2011 09/11/2011 Inactive Lipitor 20 mg tablet RxNorm: 461352 Tablet(s) PO 08/22/2011 09/05/2012 Inactive TAKE 1 TABLET BY MOUTH DAILY (THIS IS AN INCREASE IN DOSAGE) Cipro 500 mg Tab RxNorm: 316620 1 Tablet(s) PO BID 201110/24/2011 Inactive Flagyl 500 mg Tab RxNorm: 841513 1 Tablet(s) PO TID 201110/24/2011 Inactive Diflucan 150 mg Tab RxNorm: 097363 1 Tablet(s) PO daily 201110/24/2011 Inactive Kenalog 40 mg/mL Susp for Injection RxNorm: 6016783 1 Milliliter(s) Inj 08/01/2011 10/24/2011 Inactive FreeStyle Lancets RxNorm: 1 test Miscellaneous TID 201107/08/2014 Inactive dispense quantity sufficient for three times daily testing for diabetes FreeStyle Test strips RxNorm: 1 Miscellaneous BID 07/21/2011 08/13/2012 Inactive please give lancets alsodx 250.02 Xanax 0.25 mg Tab RxNorm: 786287 1 Tablet(s) PO Q8 PRN 07/06 No Stop Date Active colestipol 1 gram Tab RxNorm: 9306055 Tablet(s) PO 07/04/2011 04/21/2016 Inactive TAKE 1 TABLET BY MOUTH TWICE DAILY DIRECTED colestipol 1 gram tablet RxNorm: 2884972 1 Tablet(s) PO BID 07/03/2011 Inactive Cartia XT 180 mg capsule,extended release RxNorm: 174831 1 Capsule(s) PO QHS 06/30/2011 11/16/2011 Inactive in addition to 240mg q am venlafaxine 37.5 mg Tab RxNorm: 214906 1 Tablet(s) PO BID 06/2406/29/2011 Inactive prednisone 5 mg Tab RxNorm: 235223 Tablet(s) PO UD 2011 10/24/2011 Inactive six day taper #21 Lyrica 50 mg capsule RxNorm: 802108 1 Capsule(s) PO TID 201108/18/2011 Inactive Diflucan 150 mg tablet RxNorm: 001298 1 Tablet(s) PO daily 06/24/2011 Inactive levofloxacin 500 mg Tab RxNorm: 339306 1 Tablet(s) PO daily 08/15/2011 Inactive azithromycin 250 mg Tab RxNorm: 934271 PO 05/23/2011 06/20/2011 Inactive omeprazole 20 mg capsule,delayed release RxNorm: 977153 Capsule(s) PO 05/10/2011 05/20/2012 Inactive TAKE 1 CAPSULE BY MOUTH TWICE DAILY;Patient requests 90 day supply diltiazem ER (XR/XT) 240 mg capsule,extended release, controlled RxNorm: 796272 Capsule(s) PO 04/19/2011 05/21/2012 Inactive TAKE 1 CAPSULE BY MOUTH EVERY MORNING;Patient requests 90 day supply Kenalog 40 mg/mL Susp for Injection RxNorm: 8995231 1 Milliliter(s) Inj 04/18/2011 06/20/2011 Inactive clindamycin 300 mg Cap RxNorm: 066722 1 Capsule(s) PO BID 04/1806/20/2011 Inactive lisinopril-hydrochlorothiazide 20 mg-12.5 mg Tab RxNorm: 007487 2 Tablet(s) PO daily 04/18/2011 10/24/2011 Inactive fluconazole 150 mg Tab RxNorm: 856497 1 Tablet(s) PO daily 07/201006/20/2011 Inactive Activella 0.5 mg-0.1 mg tablet RxNorm: 6472758 Tablet(s) PO 05/201005/08/2012 Inactive TAKE 1 TABLET BY MOUTH DAILY FOR MENOPAUSAL SYMPTOM diltiazem ER (XR/XT) 240 mg Continuous Release Cap RxNorm: 949764 1 Capsule(s) PO daily 03/17/2011 03/16/2011 Inactive diltiazem ER (XR/XT) 240 mg Continuous Release Cap RxNorm: 201811 Capsule(s) PO 03/17/2011 06/20/2011 Inactive TAKE 1 CAPSULE BY MOUTH EVERY MORNING metformin 850 mg tablet RxNorm: 747405 1 Tablet(s) PO as doctor directed take one pill by mouth in AM, 1/2 at noon, and 1 pill in the evening. 01/21/2011 04/20/2011 Inactive Xopenex 1.25 mg/3 mL solution for nebulization RxNorm: 856090 3 Milliliter(s) INH Q6 PRN No Start Date Active Novolog Flexpen U-100 Insulin aspart 100 unit/mL subcutaneous RxNorm: 6928008 10 units with meals plus SSI in [...] 301-325 Lomotil 2.5 mg-0.025 mg tablet RxNorm: 0588846 Tablet(s) PO No Start Date 02/21/2012 Inactive 1 after each loose bm limit 4 per day Novolog Flexpen U-100 Insulin aspart 100 unit/mL subcutaneous RxNorm: 7969863 10 Unit(s) SQ AC No Start Date 10/26 Inactive with sliding scale-Dr Yanna Judd FlexTouch U-100 100 unit/mL (3 mL) subcutaneous insulin pen RxNorm: 5549126 40 Unit(s) SQ daily No Start Date Inactive gabapentin 600 mg tablet RxNorm: 677067 1 Tablet(s) PO TID No Start Date 06/26/2013 Inactive Effexor XR 37.5 mg capsule,extended release RxNorm: 678548 1 Capsule(s) PO BID No Start Date 10/23/2011 Inactive Levemir FlexTouch 100 unit/mL (3 mL) subcutaneous insulin pen RxNorm: 296100 50 Unit(s) SQ BID No Start Date 04/24/2017 Inactive Combivent Respimat 20 mcg-100 mcg/actuation solution for inhalation RxNorm: 1716870 1 INH QID No Start Date 05/11/2014 Inactive Xanax 0.5 mg Tab RxNorm: 224116 1/2-1 Tablet(s) PO Q8 PRN No Start Date 08/23/2011 Inactive Xopenex HFA 45 mcg/actuation Aerosol Inhaler RxNorm: 497805 2 INH QID No Start Date 11/07/2011 Inactive promethazine 25 mg tablet RxNorm: 951174 1 Tablet(s) PO Q8 as needed No Start Date 08/12/2015 Inactive colestipol 1 gram Tab RxNorm: 4900996 1 Tablet(s) PO BID No Start Date 07/03/2011 Inactive Cartia XT 240 mg capsule,extended release RxNorm: 466487 1 Capsule(s) PO QAM No Start Date 05/22/2012 Inactive in addition to 180mg q pm Lipitor 20 mg Tab RxNorm: 452160 1 Tablet(s) PO daily No Start Date 08/21/2011 Inactive FreeStyle Test Strips RxNorm: 1 Miscellaneous BID No Start Date 07/20/2011 Inactive Jerry Marley U-300 Insulin 300 unit/mL (1.5 mL) subcutaneous pen RxNorm: 4260237 40 Unit(s) SQ BID No Start Date 10/26/2017 Inactive Diflucan 150 mg tablet RxNorm: 312312 1 Tablet(s) PO daily 1 pill po every other day x 8 doses No Start Date 03/18/2013 Inactive hydrocodone 5 mg-acetaminophen 500 mg tablet RxNorm: 625622 1 Tablet(s) PO Q6 PRN No Start Date 01/28/2013 Inactive Lasix 20 mg tablet RxNorm: 967565 Tablet(s) PO QDAY PRN No Start Date 02/27/2012 Inactive Promethazine VC 6.25 mg-5 mg/5 mL Syrup RxNorm: 3831257 1-2 PO Q6 PRN No Start Date 10/07/2013 Inactive promethazine 25 mg tablet RxNorm: 111796 1 Tablet(s) PO Q6 PRN No Start Date 02/09/2017 Inactive digoxin 125 mcg tablet RxNorm: 468802 1 Tablet(s) PO daily No Start Date 06/20/2017 Inactive Xanax 0.25 mg Tab RxNorm: 543077 1 Tablet(s) PO Q8 PRN No Start Date 07/05/2011 Inactive Diflucan 150 mg tablet RxNorm: 556821 1 Tablet(s) PO every other day x 4 doses No Start Date 04/09/2014 Inactive Carafate 100 mg/mL Oral Susp RxNorm: 221572 2 Teaspoon(s) PO daily No Start Date 10/24/2011 Inactive prednisone 5 mg Tab RxNorm: 815031 Tablet(s) PO UD No Start Date 06/22/2011 Inactive six day taper #21 Tessalon Perles 100 mg capsule RxNorm: 139451 2 Capsule(s) PO TID as needed No Start Date 05/16/2017 Inactive Bactroban 2 % topical ointment RxNorm: 544206 1 Application TOP BID No Start Date 09/26/2013 Inactive Phenergan 25 mg tablet RxNorm: 244908 1 Tablet(s) PO Q8 as needed nausea No Start Date 06/28/2015 Inactive flecainide 50 mg tablet RxNorm: 838414 1 Tablet(s) PO BID No Start Date 02/01/2016 Inactive Activella 0.5 mg-0.1 mg Tab RxNorm: 6828755 1 Tablet(s) PO daily No Start Date 03/21/2011 Inactive hydrocodone 10 mg-acetaminophen 325 mg tablet RxNorm: 480083 1 Tablet(s) PO Q6 as needed No Start Date 02/04/2016 Inactive lisinopril 20 mg Tab RxNorm: 356954 1 Tablet(s) PO daily No Start Date 06/20/2011 Inactive prednisone 10 mg tablets in a dose pack RxNorm: 365408 Tablet(s) PO UD 6-5-4-3-2- 1 No Start Date 05/30/2012 Inactive hydrocodone 7.5 mg-acetaminophen 325 mg tablet RxNorm: 832928 1 Tablet(s) PO Q6 PRN No Start Date 10/06/2013 Inactive hyoscyamine 0.125 mg sublingual tablet RxNorm: 5605556 1 Tablet(s) SL TID as needed No Start Date 05/16/2017 Inactive Cartia XT 180 mg 24 hr Cap RxNorm: 251980 1 Capsule(s) PO QHS No Start Date 06/29/2011 Inactive in addition to 240mg q am Zofran 4 mg tablet RxNorm: 442468 1 Tablet(s) PO Q6 PRN No Start Date 08/12/2012 Inactive omeprazole 20 mg Cap, Delayed Release RxNorm: 256414 1 Capsule(s) PO BID No Start Date 05/09/2011 Inactive venlafaxine 37.5 mg Tab RxNorm: 580124 1 Tablet(s) PO BID No Start Date 10/24/2011 Inactive Vesicare 10 mg tablet RxNorm: 340563 1 Tablet(s) PO daily No Start Date 09/28/2015 Inactive levothyroxine 25 mcg Tab RxNorm: 496614 1 Tablet(s) PO daily No Start Date 10/18/2011 Inactive Zithromax Z-Babak 250 mg tablet RxNorm: 784476 Tablet(s) PO UD No Start Date 04/01/2012 Inactive Januvia 100 mg tablet RxNorm: 036491 1 Tablet(s) PO daily No Start Date 05/22/2013 Inactive Lantus Solostar 100 unit/mL (3 mL) subcutaneous insulin pen RxNorm: 304248 Unit( s) SQ No Start Date 04/17/2017 Inactive 10 units q am and 50units at night fluconazole 150 mg tablet RxNorm: 881859 1 Tablet(s) PO every other day x 5 doses No Start Date 09/11/2012 Inactive Toprol XL 25 mg 24 hr Tab RxNorm: 941231 1 Tablet(s) PO daily No Start Date 11/16/2011 Inactive Medication Administered Medication Codes Instructions Start Date Status Kenalog 40 mg/mL suspension for injection RxNorm: 5993695 Milliliter 06/26/2015 No longer Active Kenalog 40 mg/mL suspension for injection RxNorm: 8968894 Milliliter 05/07/2013 No longer Active Kenalog 40 mg/mL Susp for Injection RxNorm: 9446021 1Milliliter 07/06/2012 No longer Active Pneumovax 23 25 mcg/0.5 mL Injection RxNorm: 769339 1/2Milliliter 06/07/2012 No longer Active Kenalog 40 mg/mL Susp for Injection RxNorm: 9114100 1Milliliter 05/02/2012 No longer Active Phenergan 25 mg/mL Injection RxNorm: 475817 Milliliter 11/30/2011 No longer Active Immunizations Vaccine [...] 26.2 pg 02/20/2018 Cbc With Differential Ord2 [place]% 5.7 % 02/20/2018 Cbc With Differential Ord2 [...] 1.61 K/ul 02/20/2018 Cbc With Differential Ord2 [place] ABS# 0.5 K/ul 02/20/2018 Cbc With Differential Ord2 Eos ABS# 0.1 K/ul 02/20/2018 Cbc With Differential Ord2 Baso ABS# 0.0 K/ul 02/20/2018 Comp Metabolic Zjk390 NA 134 mEq/L 02/20/2018 Comp Metabolic Owt188 K 3.9 mEq/L 02/20/2018 Comp Metabolic Ake260 CL 90 mEq/L 02/20/2018 Comp Metabolic Cma675 CO2 32.0 mEq/L 02/20/2018 Comp Metabolic Fgr858 ANION GAP 16 02/20/2018 Comp Metabolic Rib148 GLUCOSE 287 mg/dL 02/20/2018 Comp Metabolic Npd247 Creat 0.8 mg/dL 02/20/2018 Comp Metabolic Fip608 eGFR 72 ml/min/1.73m2 02/20/2018 Comp Metabolic Cfa952 BUN 13 mg/dL 02/20/2018 Comp Metabolic Yek725 B/C Ratio 15.5 Ratio 02/20/2018 Comp Metabolic Sjr021 CALCIUM 9.0 mg/dL 02/20/2018 Comp Metabolic Dmy156 ALK PHOS 120 U/L 02/20/2018 Comp Metabolic Gch323 AST(SGOT) 21 U/L 02/20/2018 Comp Metabolic Sfw243 ALT(SGPT) 17 U/L 02/20/2018 Comp Metabolic Szl090 BILI T 0.4 mg/dL 02/20/2018 Comp Metabolic Lbg550 ALBUMIN 3.8 g/dL 02/20/2018 Comp Metabolic Bzc495 TPRO 6.9 g/dL 02/20/2018 Comp Metabolic Dvm756 GLOB 3.1 g/dL 02/20/2018 Comp Metabolic Ita193 A/G Ratio 1.3 Ratio 02/20/2018 Comp Metabolic Adc734 Osmo 279 mOsmo 02/20/2018 Vitamin D 25 Oh Fjc5536 VITAMIN D, 25 HYDROXY 26.48 ng/mL Digoxin Ord9 DIGOXIN 0.7 NG/ML 02/20/2018 Culture Urine [id number] URINE CULTURE SEE NOTES 12/01/2017 Urine Culture Ucult Complete >100,000 col/ml aerobic growth sent to ref lab 11/29/2017 Comp Metabolic Yie351 NA 135 mEq/L 08/21/2017 Comp Metabolic Jca811 K 4.6 mEq/L 08/21/2017 Comp Metabolic Eaq704 CL 92 mEq/L 08/21/2017 Comp Metabolic Bdz642 CO2 32.0 mEq/L 08/21/2017 Comp Metabolic Fhf796 ANION GAP 16 08/21/2017 Comp Metabolic Gbf084 GLUCOSE 298 mg/dL 08/21/2017 Comp Metabolic Xrb871 Creat 1.1 mg/dL 08/21/2017 Comp Metabolic Opj627 eGFR 54 ml/min/1.73m2 08/21/2017 Comp Metabolic Lhm846 BUN 22 mg/dL 08/21/2017 Comp Metabolic Tld870 B/C Ratio 20.6 Ratio 08/21/2017 Comp Metabolic Rwb842 CALCIUM 9.3 mg/dL 08/21/2017 Comp Metabolic Mkp824 ALK PHOS 145 U/L 08/21/2017 Comp Metabolic Nqm688 AST(SGOT) 31 U/L 08/21/2017 Comp Metabolic Lws034 ALT(SGPT) 19 U/L 08/21/2017 Comp Metabolic Onl557 BILI T 0.3 mg/dL 08/21/2017 Comp Metabolic Gqw526 ALBUMIN 3.8 g/dL 08/21/2017 Comp Metabolic Zul942 TPRO 7.1 g/dL 08/21/2017 Comp Metabolic Rix508 GLOB 3.3 g/dL 08/21/2017 Comp Metabolic Bkz468 A/G Ratio 1.2 Ratio 08/21/2017 Comp Metabolic Jub428 Osmo 285 mOsmo 08/21/2017 Cbc With Differential [...] 88.1 fl 08/18/2017 Cbc With Differential Ord2 [place]% 6.9 % 08/18/2017 Cbc With Differential Ord2 [...] 2.05 K/ul 08/18/2017 Cbc With Differential Ord2 [place] ABS# 0.7 K/ul 08/18/2017 Cbc With Differential Ord2 Eos ABS# 0.3 K/ul 08/18/2017 Cbc With Differential Ord2 Baso ABS# 0.0 K/ul 08/18/2017 %Hba1C Tuo183 % HbA1c 42503-9 11.5 % 06/13/2017 %Hba1C Vis429 Gluc Ave 283 mg/dL 06/13/2017 Cbc With [...] 20.0 % 03/27/2017 Cbc With Differential Ord2 [place]% 7.2 % 03/27/2017 Cbc With Differential Ord2 [...] 2.11 K/ul 03/27/2017 Cbc With Differential Ord2 [place] ABS# 0.8 K/ul 03/27/2017 Cbc With Differential Ord2 Eos ABS# 0.2 K/ul 03/27/2017 Cbc With Differential Ord2 Baso ABS# 0.0 K/ul 03/27/2017 Digoxin Ord9 DIGOXIN 0.5 NG/ML 03/27/2017 Comp Metabolic Bxt608 NA 136 mEq/L 03/27/2017 Comp Metabolic Dvf530 K 4.1 mEq/L 03/27/2017 Comp Metabolic Mqf497 CL 90 mEq/L 03/27/2017 Comp Metabolic Ias982 CO2 34.0 mEq/L 03/27/2017 Comp Metabolic Iga310 ANION GAP 16 03/27/2017 Comp Metabolic Gbr180 GLUCOSE 325 mg/dL 03/27/2017 Comp Metabolic Ejm819 Creat 1.0 mg/dL 03/27/2017 Comp Metabolic Afs207 eGFR 62 ml/min/1.73m2 03/27/2017 Comp Metabolic Jnf836 BUN 15 mg/dL 03/27/2017 Comp Metabolic Phj204 B/C Ratio 15.8 Ratio 03/27/2017 Comp Metabolic Toz696 CALCIUM 9.5 mg/dL 03/27/2017 Comp Metabolic Nyp918 ALK PHOS 159 U/L 03/27/2017 Comp Metabolic Kyf918 AST(SGOT) 57 U/L 03/27/2017 Comp Metabolic Cma828 ALT(SGPT) 32 U/L 03/27/2017 Comp Metabolic Abt900 BILI T 0.4 mg/dL 03/27/2017 Comp Metabolic Lla427 ALBUMIN 4.3 g/dL 03/27/2017 Comp Metabolic Sgf056 TPRO 7.3 g/dL 03/27/2017 Comp Metabolic Lup785 GLOB 3.0 g/dL 03/27/2017 Comp Metabolic Gjw681 A/G Ratio 1.4 Ratio 03/27/2017 Comp Metabolic Yxq098 Osmo 285 mOsmo 03/27/2017 Magnesium Ord90 Mag 2.4 mg/dL 02/27/2017 Comp Metabolic Ugf012 NA 138 mEq/L 02/27/2017 Comp Metabolic Ueu387 K 4.2 mEq/L 02/27/2017 Comp Metabolic Duw384 CL 91 mEq/L 02/27/2017 Comp Metabolic Bka651 CO2 36.0 mEq/L 02/27/2017 Comp Metabolic Ppy828 ANION GAP 15 02/27/2017 Comp Metabolic Djc104 GLUCOSE 297 mg/dL 02/27/2017 Comp Metabolic Sbo074 Creat 0.9 mg/dL 02/27/2017 Comp Metabolic Uwp722 eGFR 71 ml/min/1.73m2 02/27/2017 Comp Metabolic Fug287 BUN 12 mg/dL 02/27/2017 Comp Metabolic Jjt482 B/C Ratio 14.1 Ratio 02/27/2017 Comp Metabolic Bua069 CALCIUM 9.0 mg/dL 02/27/2017 Comp Metabolic Mep088 ALK PHOS 146 U/L 02/27/2017 Comp Metabolic Irj662 AST(SGOT) 28 U/L 02/27/2017 Comp Metabolic Swb189 ALT(SGPT) 12 U/L 02/27/2017 Comp Metabolic Ptf989 BILI T 0.3 mg/dL 02/27/2017 Comp Metabolic Fgv185 ALBUMIN 3.8 g/dL 02/27/2017 Comp Metabolic Ahj147 TPRO 6.6 g/dL 02/27/2017 Comp Metabolic Mvr022 GLOB 2.8 g/dL 02/27/2017 Comp Metabolic Ypv071 A/G Ratio 1.3 Ratio 02/27/2017 Comp Metabolic Npe577 Osmo 286 mOsmo 02/27/2017 Digoxin Ord9 DIGOXIN <0.2 NG/ML 02/14/2017 Comp Metabolic Cdy433 NA 138 mEq/L 02/14/2017 Comp Metabolic Moh252 K 3.5 mEq/L 02/14/2017 Comp Metabolic Ihd283 CL 95 mEq/L 02/14/2017 Comp Metabolic Clp539 CO2 29.0 mEq/L 02/14/2017 Comp Metabolic Wrv258 ANION GAP 18 02/14/2017 Comp Metabolic Xvn428 GLUCOSE 254 mg/dL 02/14/2017 Comp Metabolic Ylf857 Creat 1.0 mg/dL 02/14/2017 Comp Metabolic Ufg108 eGFR 62 ml/min/1.73m2 02/14/2017 Comp Metabolic Zjl090 BUN 14 mg/dL 02/14/2017 Comp Metabolic Ohc497 B/C Ratio 14.6 Ratio 02/14/2017 Comp Metabolic Osj102 CALCIUM 8.6 mg/dL 02/14/2017 Comp Metabolic Fiy082 ALK PHOS 155 U/L 02/14/2017 Comp Metabolic Upd860 AST(SGOT) 42 U/L 02/14/2017 Comp Metabolic Oyw420 ALT(SGPT) 28 U/L 02/14/2017 Comp Metabolic Gdy717 BILI T 0.3 mg/dL 02/14/2017 Comp Metabolic Enr329 ALBUMIN 3.6 g/dL 02/14/2017 Comp Metabolic Qos978 TPRO 6.2 g/dL 02/14/2017 Comp Metabolic Rsi090 GLOB 2.6 g/dL 02/14/2017 Comp Metabolic Hjc895 A/G Ratio 1.4 Ratio 02/14/2017 Comp Metabolic Yoe076 Osmo 285 mOsmo 02/14/2017 Vitamin D 25 Oh Dtq3913 VITAMIN D, 25 HYDROXY 8.99 ng/mL Tsh [...] 28.0 pg 01/16/2017 Cbc With Differential Ord2 [place]% 7.3 % 01/16/2017 Cbc With Differential Ord2 [...] 1.42 K/ul 01/16/2017 Cbc With Differential Ord2 [place] ABS# 0.6 K/ul 01/16/2017 Cbc With Differential Ord2 Eos ABS# 0.1 K/ul 01/16/2017 Cbc With Differential Ord2 Baso ABS# 0.0 K/ul 01/16/2017 Sed Rate Ord21 ESR 33 mm/hr 01/16/2017 C-Reactive Protein Qnt Crqnt CRP 3.3 mg/dl 01/16/2017 Free T4 Toe683 FREE T4 0.81 ng/dL 01/16/2017 %Hba1C Fcb294 % HbA1c 47244-5 12.4 % 01/16/2017 %Hba1C Upl753 Gluc Ave 309 mg/dL 01/16/2017 Comp Metabolic Hqh515 NA 134 mEq/L 01/16/2017 Comp Metabolic Acy193 K 4.0 mEq/L 01/16/2017 Comp Metabolic Nlo292 CL 89 mEq/L 01/16/2017 Comp Metabolic Vjc480 CO2 30.0 mEq/L 01/16/2017 Comp Metabolic Nop117 ANION GAP 19 01/16/2017 Comp Metabolic Slq887 GLUCOSE 496 Result Verified By Repeat Analysis mg/dL 01/16/2017 Comp Metabolic Qmc615 Creat 0.8 mg/dL 01/16/2017 Comp Metabolic Bjj942 eGFR 73 ml/min/1.73m2 01/16/2017 Comp Metabolic Fqm412 BUN 13 mg/dL 01/16/2017 Comp Metabolic Jjj063 B/C Ratio 15.7 Ratio 01/16/2017 Comp Metabolic Eyj833 CALCIUM 8.8 mg/dL 01/16/2017 Comp Metabolic Zhg278 ALK PHOS 171 U/L 01/16/2017 Comp Metabolic Pqr537 AST(SGOT) 54 U/L 01/16/2017 Comp Metabolic Vvz432 ALT(SGPT) 32 U/L 01/16/2017 Comp Metabolic Oiz620 BILI T 0.3 mg/dL 01/16/2017 Comp Metabolic Hkb146 ALBUMIN 3.9 g/dL 01/16/2017 Comp Metabolic Rpl079 TPRO 6.5 g/dL 01/16/2017 Comp Metabolic Xch791 GLOB 2.6 g/dL 01/16/2017 Comp Metabolic Xjg450 A/G Ratio 1.5 Ratio 01/16/2017 Comp Metabolic Ysu200 Osmo 290 mOsmo 01/16/2017 Comp Metabolic Rhc476 NA 135 mEq/L 09/14/2016 Comp Metabolic Qww083 K 5.2 mEq/L 09/14/2016 Comp Metabolic Lqp881 CL 93 mEq/L 09/14/2016 Comp Metabolic Qtm451 CO2 26.0 mEq/L 09/14/2016 Comp Metabolic Fkh363 ANION GAP 21 09/14/2016 Comp Metabolic Fvq041 GLUCOSE 326 mg/dL 09/14/2016 Comp Metabolic Hbn271 Creat 1.0 mg/dL 09/14/2016 Comp Metabolic Jgi523 eGFR 57 ml/min/1.73m2 09/14/2016 Comp Metabolic Swc103 BUN 16 mg/dL 09/14/2016 Comp Metabolic Btn252 B/C Ratio 15.5 Ratio 09/14/2016 Comp Metabolic Fmm163 CALCIUM 9.2 mg/dL 09/14/2016 Comp Metabolic Uiy261 ALK PHOS 160 U/L 09/14/2016 Comp Metabolic Nwc903 AST(SGOT) 49 U/L 09/14/2016 Comp Metabolic Tnn449 ALT(SGPT) 32 U/L 09/14/2016 Comp Metabolic Izh320 BILI T 0.4 mg/dL 09/14/2016 Comp Metabolic Vls781 ALBUMIN 4.0 g/dL 09/14/2016 Comp Metabolic Pay520 TPRO 7.3 g/dL 09/14/2016 Comp Metabolic Evv281 GLOB 3.3 g/dL 09/14/2016 Comp Metabolic Lqn424 A/G Ratio 1.2 Ratio 09/14/2016 Comp Metabolic Ypb266 Osmo 284 mOsmo 09/14/2016 Cbc With Differential [...] 86.9 fl 09/14/2016 Cbc With Differential Ord2 [place]% 6.2 % 09/14/2016 Cbc With Differential Ord2 [...] 2.09 K/ul 09/14/2016 Cbc With Differential Ord2 [place] ABS# 0.7 K/ul 09/14/2016 Cbc With Differential Ord2 Eos ABS# 0.2 K/ul 09/14/2016 Cbc With Differential Ord2 Baso ABS# 0.3 K/ul 09/14/2016 %Hba1C Hpq179 % HbA1c 18781-5 10.7 % 09/14/2016 %Hba1C Lyl671 Gluc Ave 260 mg/dL 09/14/2016 Manual Differential Ord52 D-Neutr 62 % 09/14/2016 Manual Differential Ord52 D-[place] 1 % 09/14/2016 Manual Differential Ord52 D-Lymph 34 % 09/14/2016 Manual Differential Ord52 D-Eos 2 % 09/14/2016 Manual Differential Ord52 D-[place] 1 % 09/14/2016 Comp Metabolic Xkk627 NA 134 mEq/L 08/10/2016 Comp Metabolic Rig313 K 5.0 mEq/L 08/10/2016 Comp Metabolic Ubc507 CL 91 mEq/L 08/10/2016 Comp Metabolic Wbb041 CO2 29.0 mEq/L 08/10/2016 Comp Metabolic Obm419 ANION GAP 19 08/10/2016 Comp Metabolic Dkp291 GLUCOSE 291 mg/dL 08/10/2016 Comp Metabolic Sqq482 Creat 0.9 mg/dL 08/10/2016 Comp Metabolic Ujp599 eGFR 68 ml/min/1.73m2 08/10/2016 Comp Metabolic Cwq327 BUN 20 mg/dL 08/10/2016 Comp Metabolic Yvn833 B/C Ratio 22.7 Ratio 08/10/2016 Comp Metabolic Owq977 CALCIUM 9.7 mg/dL 08/10/2016 Comp Metabolic Off087 ALK PHOS 144 U/L 08/10/2016 Comp Metabolic Uyd274 AST(SGOT) 62 U/L 08/10/2016 Comp Metabolic Psx698 ALT(SGPT) 37 U/L 08/10/2016 Comp Metabolic Oyn314 BILI T 0.3 mg/dL 08/10/2016 Comp Metabolic Rbo165 ALBUMIN 4.3 g/dL 08/10/2016 Comp Metabolic Mal940 TPRO 7.3 g/dL 08/10/2016 Comp Metabolic Stv766 GLOB 3.0 g/dL 08/10/2016 Comp Metabolic Zyx184 A/G Ratio 1.5 Ratio 08/10/2016 Comp Metabolic Frj706 Osmo 282 mOsmo 08/10/2016 Free T4 Olc137 FREE T4 0.89 ng/dL 08/09/2016 Tsh Ord6 [...] 27.1 pg 08/09/2016 Cbc With Differential Ord2 [place]% 5.4 % 08/09/2016 Cbc With Differential Ord2 [...] 2.46 K/ul 08/09/2016 Cbc With Differential Ord2 [place] ABS# 0.8 K/ul 08/09/2016 Cbc With Differential [...] 26.3 % 04/20/2016 Cbc With Differential Ord2 [place]% 6.3 % 04/20/2016 Cbc With Differential Ord2 [...] 2.63 K/ul 04/20/2016 Cbc With Differential Ord2 [place] ABS# 0.6 K/ul 04/20/2016 Cbc With Differential Ord2 Eos ABS# 0.2 K/ul 04/20/2016 Cbc With Differential Ord2 Baso ABS# 0.0 K/ul 04/20/2016 Comp Metabolic Qjj206 NA 133 mEq/L 04/11/2016 Comp Metabolic Zme993 K 4.1 mEq/L 04/11/2016 Comp Metabolic Gzl809 CL 92 mEq/L 04/11/2016 Comp Metabolic Zxw162 CO2 30.0 mEq/L 04/11/2016 Comp Metabolic Hxh429 ANION GAP 15 04/11/2016 Comp Metabolic Fqe730 GLUCOSE 414 mg/dL 04/11/2016 Comp Metabolic Eix225 Creat 0.9 mg/dL 04/11/2016 Comp Metabolic Ivj082 eGFR 65 ml/min/1.73m2 04/11/2016 Comp Metabolic Jfa843 BUN 22 mg/dL 04/11/2016 Comp Metabolic Zuj792 B/C Ratio 23.9 Ratio 04/11/2016 Comp Metabolic Keo038 CALCIUM 9.2 mg/dL 04/11/2016 Comp Metabolic Bkg184 ALK PHOS 145 U/L 04/11/2016 Comp Metabolic Gxb288 AST(SGOT) 22 U/L 04/11/2016 Comp Metabolic Cbk059 ALT(SGPT) 21 U/L 04/11/2016 Comp Metabolic Owy311 BILI T 0.3 mg/dL 04/11/2016 Comp Metabolic Yrz595 ALBUMIN 3.9 g/dL 04/11/2016 Comp Metabolic Bot676 TPRO 6.8 g/dL 04/11/2016 Comp Metabolic Qmf177 GLOB 3.0 g/dL 04/11/2016 Comp Metabolic Chr789 A/G Ratio 1.3 Ratio 04/11/2016 Comp Metabolic Ite533 Osmo 287 mOsmo 04/11/2016 Cbc With Differential [...] 27.6 pg 04/11/2016 Cbc With Differential Ord2 [place]% 6.9 % 04/11/2016 Cbc With Differential Ord2 [...] 2.09 K/ul 04/11/2016 Cbc With Differential Ord2 [place] ABS# 0.7 K/ul 04/11/2016 Cbc With Differential Ord2 Eos ABS# 0.2 K/ul 04/11/2016 Cbc With Differential Ord2 Baso ABS# 0.0 K/ul 04/11/2016 Comp Metabolic Uvz915 NA 136 mEq/L 02/26/2016 Comp Metabolic Npa855 K 3.9 mEq/L 02/26/2016 Comp Metabolic Piv380 CL 95 mEq/L 02/26/2016 Comp Metabolic Rmy388 CO2 29.0 mEq/L 02/26/2016 Comp Metabolic Rat175 ANION GAP 16 02/26/2016 Comp Metabolic Cno044 GLUCOSE 277 mg/dL 02/26/2016 Comp Metabolic Wmu965 Creat 0.7 mg/dL 02/26/2016 Comp Metabolic Ngh275 eGFR 88 ml/min/1.73m2 02/26/2016 Comp Metabolic Ubj184 BUN 11 mg/dL 02/26/2016 Comp Metabolic Vsq860 B/C Ratio 15.5 Ratio 02/26/2016 Comp Metabolic Orb977 CALCIUM 8.8 mg/dL 02/26/2016 Comp Metabolic Vdd010 ALK PHOS 119 U/L 02/26/2016 Comp Metabolic Zio058 AST(SGOT) 25 U/L 02/26/2016 Comp Metabolic Dxf774 ALT(SGPT) 20 U/L 02/26/2016 Comp Metabolic Ugs959 BILI T 0.3 mg/dL 02/26/2016 Comp Metabolic Gve607 ALBUMIN 3.8 g/dL 02/26/2016 Comp Metabolic Dkp295 TPRO 6.6 g/dL 02/26/2016 Comp Metabolic Kdf575 GLOB 2.8 g/dL 02/26/2016 Comp Metabolic Xaz722 A/G Ratio 1.3 Ratio 02/26/2016 Comp Metabolic Whw745 Osmo 281 mOsmo 02/26/2016 Cbc With Differential [...] 29.6 pg 02/26/2016 Cbc With Differential Ord2 [place]% 6.4 % 02/26/2016 Cbc With Differential Ord2 [...] 2.78 K/ul 02/26/2016 Cbc With Differential Ord2 [place] ABS# 0.8 K/ul 02/26/2016 Cbc With Differential Ord2 Eos ABS# 0.2 K/ul 02/26/2016 Cbc With Differential Ord2 Baso ABS# 0.1 K/ul 02/26/2016 %Hba1C Vha956 % HbA1c 83727-4 9.6 % 02/26/2016 %Hba1C Sts654 Gluc Ave 229 mg/dL 02/26/2016 Comp Metabolic Xyw005 NA 138 mEq/L 11/10/2015 Comp Metabolic Gwk777 K 4.5 mEq/L 11/10/2015 Comp Metabolic Rjc702 CL 99 mEq/L 11/10/2015 Comp Metabolic Ing823 CO2 34.0 mEq/L 11/10/2015 Comp Metabolic Kap770 ANION GAP 10 11/10/2015 Comp Metabolic Oaf446 GLUCOSE 167 mg/dL 11/10/2015 Comp Metabolic Sgm357 Creat 0.8 mg/dL 11/10/2015 Comp Metabolic Fdt767 eGFR 78 ml/min/1.73m2 11/10/2015 Comp Metabolic Iic159 BUN 22 mg/dL 11/10/2015 Comp Metabolic Ajs078 B/C Ratio 27.8 Ratio 11/10/2015 Comp Metabolic Qpe467 CALCIUM 8.5 mg/dL 11/10/2015 Comp Metabolic Wrw644 ALK PHOS 130 U/L 11/10/2015 Comp Metabolic Pwh915 AST(SGOT) 56 U/L 11/10/2015 Comp Metabolic Knc549 ALT(SGPT) 51 U/L 11/10/2015 Comp Metabolic Fmw964 BILI T 0.5 mg/dL 11/10/2015 Comp Metabolic Qqf372 ALBUMIN 3.5 g/dL 11/10/2015 Comp Metabolic Piu207 TPRO 5.8 g/dL 11/10/2015 Comp Metabolic Bor670 GLOB 2.3 g/dL 11/10/2015 Comp Metabolic Nxp036 A/G Ratio 1.5 Ratio 11/10/2015 Comp Metabolic Lul063 Osmo 283 mOsmo 11/10/2015 Cbc With Differential [...] 93.1 fl 11/10/2015 Cbc With Differential Ord2 [place]% 7.7 % 11/10/2015 Cbc With Differential Ord2 [...] 1.92 K/ul 11/10/2015 Cbc With Differential Ord2 [place] ABS# 0.9 K/ul 11/10/2015 Cbc With Differential [...] 28.6 pg 08/11/2015 Cbc With Differential Ord2 [place]% 8.1 % 08/11/2015 Cbc With Differential Ord2 [...] 2.93 K/ul 08/11/2015 Cbc With Differential Ord2 [place] ABS# 0.9 K/ul 08/11/2015 Cbc With Differential Ord2 Eos ABS# 0.1 K/ul 08/11/2015 Cbc With Differential Ord2 Baso ABS# 0.0 K/ul 08/11/2015 Cbc With Differential Ord2 New Analyzer Notice Please note new ref ranges starting 06-03-2015 due to implemntation of new five part differential hematolgy analyzer. 08/11/2015 Comp Metabolic Xdy873 NA 142 mEq/L 08/11/2015 Comp Metabolic Fqr639 K 3.6 mEq/L 08/11/2015 Comp Metabolic Fog543 CL 98 mEq/L 08/11/2015 Comp Metabolic Hcm185 CO2 33.0 mEq/L 08/11/2015 Comp Metabolic Hsl286 ANION GAP 15 08/11/2015 Comp Metabolic Yqj649 GLUCOSE 100 mg/dL 08/11/2015 Comp Metabolic Ptl263 Creat 0.9 mg/dL 08/11/2015 Comp Metabolic Okl742 eGFR 65 ml/min/1.73m2 08/11/2015 Comp Metabolic Qxo972 BUN 15 mg/dL 08/11/2015 Comp Metabolic Iau287 B/C Ratio 16.3 Ratio 08/11/2015 Comp Metabolic Cnt817 CALCIUM 8.8 mg/dL 08/11/2015 Comp Metabolic Mva224 ALK PHOS 171 U/L 08/11/2015 Comp Metabolic Yaj719 AST(SGOT) 76 U/L 08/11/2015 Comp Metabolic Wki942 ALT(SGPT) 64 U/L 08/11/2015 Comp Metabolic Qtq099 BILI T 0.4 mg/dL 08/11/2015 Comp Metabolic Izo706 ALBUMIN 4.2 g/dL 08/11/2015 Comp Metabolic Nkr490 TPRO 6.7 g/dL 08/11/2015 Comp Metabolic Awr845 GLOB 2.6 g/dL 08/11/2015 Comp Metabolic Jjw589 A/G Ratio 1.6 Ratio 08/11/2015 Comp Metabolic Xgg552 Osmo 284 mOsmo 08/11/2015 %Hba1C Vvf231 % HbA1c 27714-6 6.7 % 08/11/2015 %Hba1C Awu838 Gluc Ave 146 mg/dL 08/11/2015 Free T4 Mih262 FREE T4 1.07 ng/dL 08/11/2015 Culture Urine [id number] URINE CULTURE SEE NOTES 07/23/2015 Culture Urine [id number] Continued Results 07/23/2015 Urine Culture Ucult Complete Growth of aerobe sent to ref lab 07/21/2015 Free T4 Ljt871 FREE T4 0.76 ng/dL 04/15/2015 Tsh Ord6 hTSH II 1.99 uIU/mL 04/15/2015 %Hba1C Ply947 % HbA1c 81449-0 6.7 % 04/14/2015 %Hba1C Ufu842 Gluc Ave 146 mg/dL 04/14/2015 Comp Metabolic Bvq142 NA 140 mEq/L 04/14/2015 Comp Metabolic Sma014 K 4.4 mEq/L 04/14/2015 Comp Metabolic Xmm423 CL 99 mEq/L 04/14/2015 Comp Metabolic Nbt543 CO2 29.0 mEq/L 04/14/2015 Comp Metabolic Vvw653 ANION GAP 16 04/14/2015 Comp Metabolic Qmd742 GLUCOSE 100 mg/dL 04/14/2015 Comp Metabolic Mcx403 Creat 0.7 mg/dL 04/14/2015 Comp Metabolic Mmk664 eGFR 91 ml/min/1.73m2 04/14/2015 Comp Metabolic Owr791 BUN 13 mg/dL 04/14/2015 Comp Metabolic Cso987 B/C Ratio 18.8 Ratio 04/14/2015 Comp Metabolic Spi373 CALCIUM 9.1 mg/dL 04/14/2015 Comp Metabolic Ryo540 ALK PHOS 138 U/L 04/14/2015 Comp Metabolic Rlo550 AST(SGOT) 22 U/L 04/14/2015 Comp Metabolic Xar366 ALT(SGPT) 22 U/L 04/14/2015 Comp Metabolic Ute789 BILI T 0.3 mg/dL 04/14/2015 Comp Metabolic Rgo165 ALBUMIN 4.0 g/dL 04/14/2015 Comp Metabolic Biy285 TPRO 6.5 g/dL 04/14/2015 Comp Metabolic Qdw187 GLOB 2.5 g/dL 04/14/2015 Comp Metabolic Rcq278 A/G Ratio 1.6 Ratio 04/14/2015 Comp Metabolic Lci884 Osmo 280 mOsmo 04/14/2015 Cbc With Differential [...] Ord2 RDW 16.5 % 04/14/2015 CHEM 14 [id number] AST 15 U/L 09/11/2013 CHEM 14 5238670 ALT 25 IU/L 09/11/2013 CHEM 14 8735322 BUN 29 MG/DL 09/11/2013 CHEM 14 5255964 ALBUMIN 3.8 GM/DL 09/11/2013 CHEM 14 4149552 CHLORIDE 99 MMOL/L 09/11/2013 CHEM 14 2060968 BILI TOT 0.2 MG/DL 09/11/2013 CHEM 14 5890772 ALK PHOS 118 U/L 09/11/2013 CHEM 14 4110238 SODIUM 136 MMOL/L 09/11/2013 CHEM 14 7966728 CREATININE 1.26 MG/DL 09/11/2013 CHEM 14 4549807 CALCIUM 9.0 MG/DL 09/11/2013 CHEM 14 8227402 POTASSIUM 5.0 MMOL/L 09/11/2013 CHEM 14 7181725 PROT TOT 6.2 GM/DL 09/11/2013 CHEM 14 4137496 GLUCOSE 254 MG/DL 09/11/2013 CHEM 14 1088438 BICARB 29 MMOL/L 09/11/2013 CHEM 14 4827678 ANION GAP 8 MEQ/L 09/11/2013 GFR CALC 9336390 GFR AA 52.0L ML/MIN 09/11/2013 GFR CALC 8485767 GFR NON-AA 43.0L ML/MIN 09/11/2013 FREE T4 [id number] FREE T4 1.35 NG/DL 08/02/2013 CBC 9105157 WBC 7.5 10e9/L 08/01/2013 CBC 8026320 RBC 3.88 10e12/L 08/01/2013 CBC 4468444 HGB 12.1 g/dL 08/01/2013 CBC 0467588 HCT DET 37.6 % 08/01/2013 CBC 4130983 MCV 96.9 fL 08/01/2013 CBC 1518315 MCH 31.2 pg 08/01/2013 CBC 8380059 MCHC 32.2 g/dL 08/01/2013 CBC 6493226 PLT 289 10e9/L 08/01/2013 CBC 7817369 MPV 9.6 fL 08/01/2013 CBC 3049819 JOSEFINA % 56.0 % 08/01/2013 CBC 2481958 LY % 31.6 % 08/01/2013 CBC 7558284 MON % 10.0 % 08/01/2013 CBC 8646759 EOS % 1.7 % 08/01/2013 CBC 6720765 BASO % 0.7 % 08/01/2013 CBC 0738512 RDW 15.5 % 08/01/2013 CBC 7341403 ABS JOSEFINA 4.20 10e9/L 08/01/2013 CBC 7769642 ABS LYMPH 2.37 10e9/L 08/01/2013 CBC 7895848 ABS MONO 0.75 10e9/L 08/01/2013 CBC 8195778 ABS EOS 0.13 10e9/L 08/01/2013 CBC 7327313 ABS BASO 0.05 10e9/L 08/01/2013 CBC 2595915 RDW-SD 53.5 fL 08/01/2013 TSH 0190333 TSH 6.497 uIU/ML 08/01/2013 CHEM 14 7403869 AST 53 U/L 08/01/2013 CHEM 14 0129941 ALT 36 IU/L 08/01/2013 CHEM 14 5213108 BUN 16 MG/DL 08/01/2013 CHEM 14 9491213 ALBUMIN 4.2 GM/DL 08/01/2013 CHEM 14 9155548 CHLORIDE 103 MMOL/L 08/01/2013 CHEM 14 3690762 BILI TOT 0.4 MG/DL 08/01/2013 CHEM 14 3438787 ALK PHOS 113 U/L 08/01/2013 CHEM 14 9049455 SODIUM 139 MMOL/L 08/01/2013 CHEM 14 5670485 CREATININE 0.83 MG/DL 08/01/2013 CHEM 14 2304449 CALCIUM 9.5 MG/DL 08/01/2013 CHEM 14 5129349 POTASSIUM 4.2 MMOL/L 08/01/2013 CHEM 14 9116399 PROT TOT 6.4 GM/DL 08/01/2013 CHEM 14 8981638 GLUCOSE 135 MG/DL 08/01/2013 CHEM 14 4378120 BICARB 26 MMOL/L 08/01/2013 CHEM 14 1418367 ANION GAP 10 MEQ/L 08/01/2013 A1C HPLC 4987824 A1C HPLC 46893-4 8.1 % 08/01/2013 GFR CALC 5931815 GFR AA >60 ML/MIN 08/01/2013 GFR CALC 9763994 GFR NON-AA >60 ML/MIN 08/01/2013 CBC 6716415 WBC 10.4 10e9/L 03/21/2013 CBC 5533709 RBC 4.27 10e12/L 03/21/2013 CBC 2975804 HGB 13.1 g/dL 03/21/2013 CBC 6066508 HCT DET 41.2 % 03/21/2013 CBC 6853758 MCV 96.5 fL 03/21/2013 CBC 6016953 MCH 30.7 pg 03/21/2013 CBC 3512046 MCHC 31.8 g/dL 03/21/2013 CBC 9957728 PLT 398 10e9/L 03/21/2013 CBC 7620476 MPV 10.9 fL 03/21/2013 CBC 0449868 JOSEFINA % 65.4 % 03/21/2013 CBC 6259376 LY % 25.6 % 03/21/2013 CBC 0319842 MON % 6.7 % 03/21/2013 CBC 8346927 EOS % 1.9 % 03/21/2013 CBC 0927913 BASO % 0.4 % 03/21/2013 CBC 2470621 RDW 14.2 % 03/21/2013 CBC 3482850 ABS JOSEFINA 6.80 10e9/L 03/21/2013 CBC 2937234 ABS LYMPH 2.66 10e9/L 03/21/2013 CBC 7871912 ABS MONO 0.70 10e9/L 03/21/2013 CBC 2336601 ABS EOS 0.20 10e9/L 03/21/2013 CBC 0807220 ABS BASO 0.04 10e9/L 03/21/2013 CBC 5819853 RDW-SD 48.7 fL 03/21/2013 GFR CALC 1351211 GFR AA 57.0L ML/MIN 03/21/2013 GFR CALC 0974155 GFR NON-AA 47.0L ML/MIN 03/21/2013 CHEM 14 2991801 AST 22 U/L 03/21/2013 CHEM 14 7900991 ALT 22 IU/L 03/21/2013 CHEM 14 1717121 BUN 29 MG/DL 03/21/2013 CHEM 14 9619148 ALBUMIN 4.1 GM/DL 03/21/2013 CHEM 14 5002642 CHLORIDE 99 MMOL/L 03/21/2013 CHEM 14 8478338 BILI TOT 0.3 MG/DL 03/21/2013 CHEM 14 4556024 ALK PHOS 123 U/L 03/21/2013 CHEM 14 8895931 SODIUM 137 MMOL/L 03/21/2013 CHEM 14 6572783 CREATININE 1.16 MG/DL 03/21/2013 CHEM 14 3251918 CALCIUM 9.1 MG/DL 03/21/2013 CHEM 14 0934834 POTASSIUM 4.1 MMOL/L 03/21/2013 CHEM 14 5846793 PROT TOT 6.7 GM/DL 03/21/2013 CHEM 14 1435732 GLUCOSE 209 MG/DL 03/21/2013 CHEM 14 6208752 BICARB 26 MMOL/L 03/21/2013 CHEM 14 6082234 ANION GAP 12 MEQ/L 03/21/2013 A1C HPLC 1007072 A1C HPLC 27774-6 6.6 % 03/21/2013 GFR CALC 0584278 GFR AA >60 ML/MIN 01/17/2013 GFR CALC 3004916 GFR NON-AA 51.0L ML/MIN 01/17/2013 CHEM 14 7479711 AST 18 U/L 01/17/2013 CHEM 14 1606306 ALT 32 IU/L 01/17/2013 CHEM 14 0905257 BUN 22 MG/DL 01/17/2013 CHEM 14 3158372 ALBUMIN 4.1 GM/DL 01/17/2013 CHEM 14 3603634 CHLORIDE 99 MMOL/L 01/17/2013 CHEM 14 6702206 BILI TOT 0.3 MG/DL 01/17/2013 CHEM 14 1746573 ALK PHOS 110 U/L 01/17/2013 CHEM 14 1569827 SODIUM 138 MMOL/L 01/17/2013 CHEM 14 7514339 CREATININE 1.09 MG/DL 01/17/2013 CHEM 14 5667302 CALCIUM 8.8 MG/DL 01/17/2013 CHEM 14 1325562 POTASSIUM 3.5 MMOL/L 01/17/2013 CHEM 14 0729246 PROT TOT 6.1 GM/DL 01/17/2013 CHEM 14 7433840 GLUCOSE 163 MG/DL 01/17/2013 CHEM 14 3004874 BICARB 29 MMOL/L 01/17/2013 CHEM 14 5445702 ANION GAP 10 MEQ/L 01/17/2013 CBC 4134814 WBC 8.0 10e9/L 01/17/2013 CBC 5632800 RBC 3.85 10e12/L 01/17/2013 CBC 9159013 HGB 12.6 g/dL 01/17/2013 CBC 4503795 HCT DET 38.0 % 01/17/2013 CBC 6505737 MCV 98.7 fL 01/17/2013 CBC 6829452 MCH 32.7 pg 01/17/2013 CBC 9046194 MCHC 33.2 g/dL 01/17/2013 CBC 1642558 PLT 325 10e9/L 01/17/2013 CBC 0567759 MPV 10.4 fL 01/17/2013 CBC 3812061 JOSEFINA % 64.6 % 01/17/2013 CBC 9115162 LY % 27.0 % 01/17/2013 CBC 8921057 MON % 6.8 % 01/17/2013 CBC 6093660 EOS % 1.4 % 01/17/2013 CBC 2582622 BASO % 0.2 % 01/17/2013 CBC 9578483 RDW 15.5 % 01/17/2013 CBC 2436888 ABS JOSEFINA 5.17 10e9/L 01/17/2013 CBC 1427458 ABS LYMPH 2.16 10e9/L 01/17/2013 CBC 8989009 ABS MONO 0.54 10e9/L 01/17/2013 CBC 8261191 ABS EOS 0.11 10e9/L 01/17/2013 CBC 9248043 ABS BASO 0.02 10e9/L 01/17/2013 CBC 0005417 RDW-SD 54.3 fL 01/17/2013 TSH 8511568 TSH 3.683 uIU/ML 12/31/2012 FREE T4 5840484 FREE T4 1.34 NG/DL 12/31/2012 A1C HPLC 0517190 A1C HPLC 60351-5 6.6 % 12/21/2012 CHEM 14 1244135 AST 16 U/L 12/20/2012 CHEM 14 3730886 ALT 36 IU/L 12/20/2012 CHEM 14 0526950 BUN 26 MG/DL 12/20/2012 CHEM 14 4618936 ALBUMIN 4.2 GM/DL 12/20/2012 CHEM 14 8105277 CHLORIDE 103 MMOL/L 12/20/2012 CHEM 14 6817613 BILI TOT 0.4 MG/DL 12/20/2012 CHEM 14 1568163 ALK PHOS 107 U/L 12/20/2012 CHEM 14 0701684 SODIUM 141 MMOL/L 12/20/2012 CHEM 14 5759476 CREATININE 0.73 MG/DL 12/20/2012 CHEM 14 5091000 CALCIUM 9.2 MG/DL 12/20/2012 CHEM 14 9545323 POTASSIUM 4.3 MMOL/L 12/20/2012 CHEM 14 8186159 PROT TOT 6.2 GM/DL 12/20/2012 CHEM 14 3251578 GLUCOSE 135 MG/DL 12/20/2012 CHEM 14 8911160 BICARB 32 MMOL/L 12/20/2012 CHEM 14 5887414 ANION GAP 6 MEQ/L 12/20/2012 GFR CALC 3950664 GFR AA >60 ML/MIN 12/20/2012 GFR CALC 8544393 GFR NON-AA >60 ML/MIN 12/20/2012 CBC 9437637 WBC 8.4 10e9/L 12/20/2012 CBC 6315594 RBC 4.30 10e12/L 12/20/2012 CBC 0279783 HGB 13.9 g/dL 12/20/2012 CBC 7957506 HCT DET 41.8 % 12/20/2012 CBC 1663757 MCV 97.2 fL 12/20/2012 CBC 7565665 MCH 32.3 pg 12/20/2012 CBC 3104507 MCHC 33.3 g/dL 12/20/2012 CBC 5799116 PLT 358 10e9/L 12/20/2012 CBC 2441737 MPV 10.2 fL 12/20/2012 CBC 8885140 JOSEFINA % 63.3 % 12/20/2012 CBC 7187665 LY % 28.9 % 12/20/2012 CBC 9345720 MON % 6.3 % 12/20/2012 CBC 1705654 EOS % 1.1 % 12/20/2012 CBC 0685905 BASO % 0.4 % 12/20/2012 CBC 7425651 RDW 15.3 % 12/20/2012 CBC 5406157 ABS JOSEFINA 5.32 10e9/L 12/20/2012 CBC 3919082 ABS LYMPH 2.43 10e9/L 12/20/2012 CBC 6925129 ABS MONO 0.53 10e9/L 12/20/2012 CBC 2275665 ABS EOS 0.09 10e9/L 12/20/2012 CBC 4461742 ABS BASO 0.03 10e9/L 12/20/2012 CBC 0398910 RDW-SD 51.9 fL 12/20/2012 GFR CALC 9570640 GFR AA >60 ML/MIN 02/01/2012 GFR CALC 3490190 GFR NON-AA >60 ML/MIN 02/01/2012 CBC 0945455 WBC 10.8 10e9/L 02/01/2012 CBC 2618636 RBC 3.86 10e12/L 02/01/2012 CBC 4597781 HGB 11.8 g/dL 02/01/2012 CBC 6854539 HCT DET 36.3 % 02/01/2012 CBC 4371061 MCV 94.0 fL 02/01/2012 CBC 9581360 MCH 30.6 pg 02/01/2012 CBC 6315748 MCHC 32.5 g/dL 02/01/2012 CBC 5527585 PLT 321 10e9/L 02/01/2012 CBC 8602197 MPV 10.3 fL 02/01/2012 CBC 4275003 JOSEFINA % 75.9 % 02/01/2012 CBC 9421092 LY % 16.1 % 02/01/2012 CBC 4395714 MON % 6.8 % 02/01/2012 CBC 7886331 EOS % 1.0 % 02/01/2012 CBC 2452480 BASO % 0.2 % 02/01/2012 CBC 5741213 RDW 14.2 % 02/01/2012 CBC 9329242 ABS JOSEFINA 8.20 10e9/L 02/01/2012 CBC 7033659 ABS LYMPH 1.74 10e9/L 02/01/2012 CBC 4434187 ABS MONO 0.73 10e9/L 02/01/2012 CBC 9250906 ABS EOS 0.11 10e9/L 02/01/2012 CBC 2493788 ABS BASO 0.02 10e9/L 02/01/2012 CBC 5525404 RDW-SD 47.2 fL 02/01/2012 BRAIN PEP 1557916 BRAIN PEP FOOTNOTE pg/mL 02/01/2012 CHEM 14 4318705 AST 26 U/L 02/01/2012 CHEM 14 2407207 ALT 36 IU/L 02/01/2012 CHEM 14 2192889 BUN 29 MG/DL 02/01/2012 CHEM 14 1168686 ALBUMIN 3.7 GM/DL 02/01/2012 CHEM 14 2282865 CHLORIDE 105 MMOL/L 02/01/2012 CHEM 14 4653660 BILI TOT 0.2 MG/DL 02/01/2012 CHEM 14 3771153 ALK PHOS 89 U/L 02/01/2012 CHEM 14 5764286 SODIUM 141 MMOL/L 02/01/2012 CHEM 14 9150731 CREATININE 0.76 MG/DL 02/01/2012 CHEM 14 8033823 CALCIUM 9.0 MG/DL 02/01/2012 CHEM 14 3463687 POTASSIUM 4.8 MMOL/L 02/01/2012 CHEM 14 5311669 PROT TOT 5.5 GM/DL 02/01/2012 CHEM 14 9870183 GLUCOSE 83 MG/DL 02/01/2012 CHEM 14 0546317 BICARB 31 MMOL/L 02/01/2012 CHEM 14 3721096 ANION GAP 5 MEQ/L 02/01/2012 GFR CALC 8284894 GFR AA >60 ML/MIN 11/30/2011 GFR CALC 9342340 GFR NON-AA >60 ML/MIN 11/30/2011 CHEM 14 5571416 AST 14 U/L 11/30/2011 CHEM 14 4661270 ALT 17 IU/L 11/30/2011 CHEM 14 1389299 BUN 12 MG/DL 11/30/2011 CHEM 14 9630943 ALBUMIN 4.3 GM/DL 11/30/2011 CHEM 14 8979402 CHLORIDE 104 MMOL/L 11/30/2011 CHEM 14 9819090 BILI TOT 0.3 MG/DL 11/30/2011 CHEM 14 3352519 ALK PHOS 83 U/L 11/30/2011 CHEM 14 7901001 SODIUM 143 MMOL/L 11/30/2011 CHEM 14 0165725 CREATININE 0.71 MG/DL 11/30/2011 CHEM 14 5661904 CALCIUM 9.7 MG/DL 11/30/2011 CHEM 14 4085988 POTASSIUM 4.4 MMOL/L 11/30/2011 CHEM 14 1006866 PROT TOT 6.3 GM/DL 11/30/2011 CHEM 14 9946895 GLUCOSE 107 MG/DL 11/30/2011 CHEM 14 0307623 BICARB 27 MMOL/L 11/30/2011 CHEM 14 3505141 ANION GAP 12 MEQ/L 11/30/2011 CBC 1661430 WBC 8.7 10e9/L 11/30/2011 CBC 9690036 RBC 4.40 10e12/L 11/30/2011 CBC 3460589 HGB 13.6 g/dL 11/30/2011 CBC 8374638 HCT DET 41.0 % 11/30/2011 CBC 5302494 MCV 93.2 fL 11/30/2011 CBC 0147485 MCH 30.9 pg 11/30/2011 CBC 7315608 MCHC 33.2 g/dL 11/30/2011 CBC 1864079 PLT 328 10e9/L 11/30/2011 CBC 3877179 MPV 10.7 fL 11/30/2011 CBC 5049674 JOSEFINA % 68.4 % 11/30/2011 CBC 5470709 LY % 22.4 % 11/30/2011 CBC 4441325 MON % 7.9 % 11/30/2011 CBC 1098782 EOS % 1.1 % 11/30/2011 CBC 1629948 BASO % 0.2 % 11/30/2011 CBC 9439827 RDW 13.5 % 11/30/2011 CBC 0787481 ABS JOSEFINA 5.95 10e9/L 11/30/2011 CBC 8704569 ABS LYMPH 1.95 10e9/L 11/30/2011 CBC 2205431 ABS MONO 0.69 10e9/L 11/30/2011 CBC 9532227 ABS EOS 0.10 10e9/L 11/30/2011 CBC 6476757 ABS BASO 0.02 10e9/L 11/30/2011 CBC 7120457 RDW-SD 45.0 fL 11/30/2011 URINALYSIS NONAUTO W/O SCOPE 01112 Specific Dorothy 1.030 DateTime(Free Text in Aprima) URINALYSIS NONAUTO W/O SCOPE 75016 PH 5 DateTime(Free Text in Aprima) URINALYSIS NONAUTO W/O SCOPE 51951 GLUCOSE neg DateTime( Free Text in Aprima) URINALYSIS NONAUTO W/O SCOPE 53238 Protein neg DateTime( Free Text in Aprima) URINALYSIS NONAUTO W/O SCOPE 80216 Blood neg DateTime(Free Text in Aprima) URINALYSIS NONAUTO W/O SCOPE 02703 Bilirubin neg DateTime(Free Text in Apr[employer]) URINALYSIS NONAUTO W/O SCOPE 46774 Ketones neg DateTime( Free Text in Apr[employer]) URINALYSIS NONAUTO W/O SCOPE 94423 Urobilinogen neg DateTime(Free Text in Aprima) URINALYSIS NONAUTO W/O SCOPE 33259 Nitrite neg DateTime( Free Text in Apr[employer]) URINALYSIS NONAUTO W/O SCOPE 35400 Leukocytes neg DateTime(Free Text in Aprima) UA 54436 Specific Dorothy 1.010 DateTime(Free Text in Aprima ) UA 21595 PH 5 DateTime(Free Text in Aprima) UA 81991 GLUCOSE N DateTime(Free Text in Aprima) UA 90746 Protein N DateTime(Free Text in Aprima) UA 57156 Blood TRACE DateTime(Free Text in Aprima) UA 47956 Bilirubin N DateTime(Free Text in Aprima) UA 57391 Ketones N DateTime(Free Text in Aprima) UA 44748 Urobilinogen N DateTime(Free Text in Aprima) UA 36156 Nitrite N DateTime(Free Text in Aprima) UA 31566 Leukocytes N DateTime(Free Text in Aprima) URINALYSIS NONAUTO W/O SCOPE 97623 Specific Dorothy 1.010 DateTime(Free Text in Aprima) URINALYSIS NONAUTO W/O SCOPE 44432 PH 7.5 DateTime(Free Text in Aprima) URINALYSIS NONAUTO W/O SCOPE 22930 GLUCOSE DateTime( Free Text in Aprima) URINALYSIS NONAUTO W/O SCOPE 14694 Protein trace DateTime(Free Text in Aprima) URINALYSIS NONAUTO W/O SCOPE 25955 Blood DateTime(Free Text in Aprima) URINALYSIS NONAUTO W/O SCOPE 36861 Bilirubin DateTime( Free Text in Apr[employer]) URINALYSIS NONAUTO W/O SCOPE 99966 Ketones DateTime( Free Text in Aprima) URINALYSIS NONAUTO W/O SCOPE 78023 Urobilinogen DateTime (Free Text in Aprima) URINALYSIS NONAUTO W/O SCOPE 30962 Nitrite DateTime( Free Text in Aprima) URINALYSIS NONAUTO W/O SCOPE 95405 Leukocytes DateTime( Free Text in Aprima) URINALYSIS NONAUTO W/O SCOPE 02225 Specific Dorothy 1.010 DateTime(Free Text in Aprima) URINALYSIS NONAUTO W/O SCOPE 13525 PH 6 DateTime(Free Text in Aprima) URINALYSIS NONAUTO W/O SCOPE 43193 GLUCOSE DateTime( Free Text in Aprima) URINALYSIS NONAUTO W/O SCOPE 33034 Protein DateTime( Free Text in Aprima) URINALYSIS NONAUTO W/O SCOPE 85439 Blood DateTime(Free Text in Aprima) URINALYSIS NONAUTO W/O SCOPE 65846 Bilirubin DateTime( Free Text in Aprima) URINALYSIS NONAUTO W/O SCOPE 43808 Ketones DateTime( Free Text in Aprima) URINALYSIS NONAUTO W/O SCOPE 51316 Urobilinogen DateTime (Free Text in Aprima) URINALYSIS NONAUTO W/O SCOPE 83748 Nitrite DateTime( Free Text in Aprima) URINALYSIS NONAUTO W/O SCOPE 24318 Leukocytes DateTime( Free Text in Aprima) UA 42216 Specific Dorothy 1.020 DateTime(Free Text in Aprima ) UA 86292 PH 6 DateTime(Free Text in Aprima) UA 81062 GLUCOSE neg DateTime(Free Text in Aprima) UA 56888 Protein neg DateTime(Free Text in Aprima) UA 63380 Blood neg DateTime(Free Text in Aprima) UA 52872 Bilirubin neg DateTime(Free Text in Aprima) UA 78621 Ketones neg DateTime(Free Text in Aprima) UA 54476 Urobilinogen neg DateTime(Free Text in Aprima) UA 52874 Nitrite neg DateTime(Free Text in Aprima) UA 56083 Leukocytes neg DateTime(Free Text in Aprima) BMI 06002-1 39.7 DateTime(Free Text in ) Blood Pressure 1 8480-6 DateTime(Free Text in ) Weight (kg) DateTime(Free Text in Augima) Height (cm) DateTime(Free Text in Aprima) Heart Rate 1 DateTime(Free Text in ) [...] mastoids 04/16/2013 None Full Exam - General 1994 [...] 1995 Eyes conjunctiva /eyelids Overall: eyelids normal 03/21/2013 [...] visualized 10/29/2012 None Full Exam - General 1994 [...] accomodation 05/17/2012 None Full Exam - General 1995 Ears/Nose/Throat [...] retractions 02/15/2012 None Full Exam - General 1995 Respiratory respiratory effort/rhythm Overall: normal rate 02/15/2012 None Full Exam - General 1995 Cardiovascular extremities Edema present: pitting 02/15/2012 None Full Exam - General 1995 Cardiovascular extremities Edema present: severity 1+ - 4 +: _ 02/15/2012 None Full Exam - General 1995 Cardiovascular extremities Edema present: bilateral 02/15/2012 None Full Exam - General 1995 Cardiovascular extremities Edema present: to knees 02/15/2012 [...] tenderness 02/15/2012 None Full Exam - General 1995 Abdomen [...] masses 11/17/2011 None Full Exam - General 1995 Neck [...] sounds 08/15/2011 None Full Exam - General 1995 Integument inspection of skin Overall: no rash, [...] Date GLUC MONITOR CONT PHYS I&R CPT-4: 79103 04/27/2018 URINALYSIS NONAUTO W/O SCOPE CPT-4: 35169 04/10/2018 GLUCOSE MONITORING CONT CPT-4: 25193 04/10/2018 OCCULT BLOOD FECES CPT -4: 39449 02/22/2018 URINALYSIS NONAUTO W/O SCOPE CPT-4: 70307 02/20/2018 URINALYSIS NONAUTO W/O SCOPE CPT-4: 15383 12/14/2017 URINALYSIS NONAUTO W/O SCOPE CPT-4: 75778 11/27/2017 PPPS, SUBSEQ VISIT CPT -4: G0439 10/27/2017 GLUCOSE MONITORING CONT CPT-4: 59142 09/27/2017 URINALYSIS NONAUTO W/O SCOPE CPT-4: 03853 06/30/2017 URINALYSIS NONAUTO W/O SCOPE CPT-4: 35728 11/25/2016 URINALYSIS NONAUTO W/O SCOPE CPT-4: 03068 10/21/2016 URINALYSIS NONAUTO W/O SCOPE CPT-4: 60516 06/24/2016 URINALYSIS NONAUTO W/O SCOPE CPT-4: 55629 04/11/2016 ADMIN PNEUMOCOCCAL VACCINE SNOMED CT: [id number] CPT-4: G0009 02/26/2016 PNEUMOCOCCAL VACC 13 ANURADHA IM Formatting Model/CDA Sections, Assigned to/Jada Velazquez SNOMED CT: [id number] CPT-4: 90320Rbgljbl 02/26/2016 URINALYSIS NONAUTO W/O SCOPE CPT-4: 71745 02/10/2016 URINALYSIS NONAUTO W/O SCOPE CPT-4: 48439 11/27/2015 URINALYSIS NONAUTO W/O SCOPE CPT-4: 15188 11/02/2015 INITIAL PREVENTIVE EXAM CPT-4: G0402 09/29/2015 URINALYSIS NONAUTO W/O SCOPE CPT-4: 65465 07/20/2015 TRIAMCINOLONE ACET INJ NOS CPT-4: J3301 06/26/2015 URINALYSIS NONAUTO W/O SCOPE CPT-4: 95213 11/05/2014 URINALYSIS NONAUTO W/O SCOPE CPT-4: 52901 04/21/2014 CULTURE AEROBIC IDENTIFY CPT-4: 53523 12/12/2013 URINALYSIS NONAUTO W/O SCOPE CPT-4: 94278 11/18/2013 ROUTINE VENIPUNCTURE CPT-4: 34422 09/10/2013 ROUTINE VENIPUNCTURE CPT-4: 60361 08/01/2013 URINALYSIS NONAUTO W/O SCOPE CPT-4: 55715 06/28/2013 TRIAMCINOLONE ACET INJ NOS CPT-4: J3301 05/07/2013 DRAIN/INJECT JOINT/BURSA CPT-4: 44723 05/07/2013 ROUTINE VENIPUNCTURE CPT-4: 51135 03/21/2013 ROUTINE VENIPUNCTURE CPT-4: 62897 01/17/2013 URINALYSIS NONAUTO W/O SCOPE CPT-4: 51701 01/01/2013 ROUTINE VENIPUNCTURE CPT-4: 61426 12/31/2012 ROUTINE VENIPUNCTURE CPT-4: 30559 12/20/2012 URINALYSIS NONAUTO W/O SCOPE CPT-4: 86486 11/05/2012 DRAIN/INJECT JOINT/BURSA CPT-4: 76166 09/21/2012 TRIAMCINOLONE ACET INJ NOS CPT-4: J3301 09/21/2012 URINALYSIS NONAUTO W/O SCOPE CPT-4: 58499 07/19/2012 TRIAMCINOLONE ACET INJ NOS CPT-4: J3301 07/06/2012 Pneumococcal Polysaccharide Vaccine, 23-Valent, Ad CPT-4: 74603 06/07/2012 IMMUNIZATION ADMIN CPT -4: 96013 06/07/2012 TRIAMCINOLONE ACET INJ NOS CPT-4: J3301 05/02/2012 ROUTINE VENIPUNCTURE CPT-4: 90771 02/01/2012 URINALYSIS NONAUTO W/O SCOPE CPT-4: 16038 02/01/2012 TRIAMCINOLONE ACET INJ NOS CPT-4: J3301 12/14/2011 INJ TRIGGER POINT 1/2 MUSCL CPT-4: 19316 12/14/2011 PROMETHAZINE HCL INJECTION CPT-4: J2550 11/30/2011 ROUTINE VENIPUNCTURE CPT-4: 20885 11/30/2011 TRIAMCINOLONE ACET INJ NOS CPT-4: J3301 08/01/2011 DRAIN/INJECT JOINT/BURSA CPT-4: 26138 08/01/2011 THER/PROPH/DIAG INJ SC/IM CPT-4: 01004 04/18/2011 TRIAMCINOLONE ACET INJ NOS CPT-4: J3301 04/18/2011 Vital Signs Date Vital 04/27/2018 Blood Pressure 1: 122/54 Code : 8480-6 BMI: 39.7 Code : 82742-2 Heart Rate 1 : 84 bpm Height: 5'2" SpO2: 92% 04/10/2018 Blood Pressure 1: 120/68 Code : 8480-6 BMI: 39.7 Code : 39484-6 Heart Rate 1 : 87 bpm Height: 5'2" SpO2: 99% Weight: 217 lbs 03/12/2018 Blood Pressure 1: 140/70 Code : 8480-6 BMI: 40.2 Code : 28237-0 Heart Rate 1 : 78 bpm Height: 5'2" SpO2: 98% Weight: 220 lbs 02/20/2018 Blood Pressure 1: 140/70 Code : 8480-6 BMI: 40.2 Code : 67628-5 Heart Rate 1 : 96 bpm Height: 5'2" SpO2: 93% Weight: 220 lbs 11/27/2017 Blood Pressure 1: 158/78 Code : 8480-6 BMI: 40.8 Code : 43108-1 Heart Rate 1 : 100 bpm Height: 5'2" SpO2: 95% Weight: 223 lbs 10/27/2017 Blood Pressure 1: 146/70 Code : 8480-6 BMI: 41.3 Code : 85156-5 Heart Rate 1 : 82 bpm Height: 5'2" SpO2: 99% Waist Measure (cm): 119 cm Weight: 226 lbs 09/15/2017 Blood Pressure 1: 136/66 Code : 8480-6 BMI: 41.5 Code : 17203-9 Heart Rate 1 : 94 bpm Height: 5'2" SpO2: 96% Weight: 227 lbs 08/18/2017 Blood Pressure 1: 120/68 Code : 8480-6 BMI: 41.5 Code : 82106-4 Heart Rate 1 : 87 bpm Height: 5'2" SpO2: 94% Weight: 227 lbs 08/03/2017 Blood Pressure 1: 132/72 Code : 8480-6 BMI: 41.5 Code : 30262-2 Heart Rate 1 : 93 bpm Height: 5'2" SpO2: 95% Weight: 227 lbs 07/27/2017 Blood Pressure 1: 128/84 Code : 8480-6 BMI: 41.5 Code : 49967-2 Heart Rate 1 : 91 bpm Height: 5'2" SpO2: 98% Weight: 227 lbs 06/13/2017 Blood Pressure 1: 136/84 Code : 8480-6 BMI: 42.6 Code : 74352-5 Heart Rate 1 : 91 bpm Height: 5'2" SpO2: 94% Weight: 233 lbs 04/21/2017 Blood Pressure 1: 142/84 Code : 8480-6 BMI: 42.8 Code : 43647-5 Heart Rate 1 : 89 bpm Height: 5'2" SpO2: 94% Weight: 234 lbs 04/18/2017 Blood Pressure 1: 140/86 Code : 8480-6 BMI: 42.8 Code : 47719-8 Heart Rate 1 : 89 bpm Height: 5'2" SpO2: 97% Weight: 234 lbs 03/27/2017 Blood Pressure 1: 148/76 Code : 8480-6 BMI: 42.6 Code : 58205-3 Heart Rate 1 : 92 bpm Height: [...] Code : 8480-6 BMI: 44.3 Code : 97693-3 Heart Rate 1 : 90 bpm Height: 5'2" SpO2: 96% Weight: 242 lbs 01/30/2017 Blood Pressure 1: 132/72 Code : 8480-6 Heart Rate 1: 97 bpm Height: 5'2" SpO2: 96% Weight: 01/16/2017 Blood Pressure 1: 138/76 Code : 8480-6 BMI: 43.3 Code : 50268-5 Heart Rate 1 : 84 bpm Height: 5'2" SpO2: 99% Weight: 237 lbs 12/13/2016 Blood Pressure 1: 144/78 Code : 8480-6 Heart Rate 1: 96 bpm Height: 5'2" SpO2: 98% Temperature: 36.6 (C) / 97.9 (F) Weight: 11/11/2016 Blood Pressure 1: 144/80 Code : 8480-6 BMI: 43.0 Code : 27130-4 Heart Rate 1 : 89 bpm Height: 5'2" SpO2: 94% Temperature: 36.1 (C) / 97.0 (F) Weight: 235 lbs 10/28/2016 Blood Pressure 1: 156/82 Code : 8480-6 BMI: 43.9 Code : 56741-4 Heart Rate 1 : 78 bpm Height: [...] Code : 8480-6 BMI: 42.4 Code : 43240-4 Heart Rate 1 : 95 bpm Height: 5'2" SpO2: 98% Weight: 232 lbs 08/09/2016 Blood Pressure 1: 138/80 Code : 8480-6 BMI: 41.0 Code : 62933-9 Heart Rate 1 : 98 bpm Height: 5'2" SpO2: 97% Weight: 224 lbs 07/26/2016 Blood Pressure 1: 148/82 Code : 8480-6 BMI: 42.4 Code : 87379-9 Heart Rate 1 : 89 bpm Height: 5'2" SpO2: 97% Weight: 232 lbs 05/24/2016 Blood Pressure 1: 146/72 Code : 8480-6 BMI: 42.4 Code : 80634-5 Heart Rate 1 : 89 bpm Height: 5'2" SpO2: 99% Weight: 232 lbs 04/19/2016 Blood Pressure 1: 130/88 Code : 8480-6 BMI: 42.4 Code : 19431-5 Heart Rate 1 : 88 bpm Height: 5'2" SpO2: 98% Weight: 232 lbs 04/11/2016 Blood Pressure 1: 140/80 Code : 8480-6 BMI: 41.7 Code : 14647-6 Heart Rate 1 : 97 bpm Height: 5'2" SpO2: 95% Weight: 228 lbs 03/21/2016 Blood Pressure 1: 138/80 Code : 8480-6 BMI: 44.4 Code : 67680-7 Height: 5'2" Weight: 243 lbs 03/11/2016 Blood Pressure 1: 138/82 Code : 8480-6 BMI: 44.4 Code : 36555-7 Heart Rate 1 : 86 bpm Height: 5'2" SpO2: 95% Weight: 243 lbs 02/26/2016 Blood Pressure 1: 130/82 Code : 8480-6 BMI: 43.9 Code : 46601-3 Heart Rate 1 : 86 bpm Height: 5'2" SpO2: 97% Weight: 240 lbs 02/02/2016 Blood Pressure 1: 136/86 Code : 8480-6 Heart Rate 1: 56 bpm Height: SpO2: 96% Weight: 12/17/2015 Blood Pressure 1: 140/80 Code : 8480-6 BMI: 40.2 Code : 72728-9 Heart Rate 1 : 100 bpm Height: 5'2" SpO2: 99% Weight: 220 lbs 12/08/2015 Blood Pressure 1: 132/86 Code : 8480-6 Heart Rate 1: 100 bpm Height: SpO2: 97% Weight: 11/27/2015 Blood Pressure 1: 128/82 Code : 8480-6 BMI: 39.3 Code : 16398-4 Heart Rate 1 : 112 bpm Height: 5'2" SpO2: 96% Weight: 215 lbs 11/12/2015 Blood Pressure 1: 168/88 Code : 8480-6 Heart Rate 1: 106 bpm Height: 5'2" SpO2: 96% Weight: 11/10/2015 Blood Pressure 1: 156/80 Code : 8480-6 Heart Rate 1: 94 bpm Height: 5'2" SpO2: 96% Weight: 10/27/2015 Blood Pressure 1: 142/76 Code : 8480-6 BMI: 40.8 Code : 40230-2 Heart Rate 1 : 86 bpm Height: 5'2" SpO2: 97% Weight: 223 lbs 09/29/2015 Blood Pressure 1: 132/88 Code : 8480-6 BMI: 41.7 Code : 27484-6 Heart Rate 1 : 104 bpm Height: 5'2" SpO2: 94% Weight: 228 lbs 09/22/2015 Blood Pressure 1: 130/80 Code : 8480-6 BMI: 41.7 Code : 39918-6 Heart Rate 1 : 89 bpm Height: 5'2" SpO2: 97% Weight: 228 lbs 09/01/2015 Blood Pressure 1: 138/88 Code : 8480-6 BMI: 40.6 Code : 75571-0 Heart Rate 1 : 95 bpm Height: 5'2" SpO2: 95% Weight: 222 lbs 08/10/2015 Blood Pressure 1: 140/82 Code : 8480-6 BMI: 41.0 Code : 85579-6 Heart Rate 1 : 84 bpm Height: 5'2" SpO2: 97% Weight: 224 lbs 06/26/2015 Blood Pressure 1: 152/72 Code : 8480-6 BMI: 41.2 Code : 06908-2 Heart Rate 1 : 92 bpm Height: 5'2" SpO2: 96% Weight: 225 lbs 04/14/2015 Blood Pressure 1: 158/86 Code : 8480-6 BMI: 41.2 Code : 35135-3 Heart Rate 1 : 63 bpm Height: 5'2" SpO2: 93% Weight: 225 lbs 03/03/2015 Blood Pressure 1: 152/80 Code : 8480-6 BMI: 40.1 Code : 38343-0 Heart Rate 1 : 101 bpm Height: 5'2" SpO2: 97% Weight: 219 lbs 01/15/2015 Blood Pressure 1: 127/76 Code : 8480-6 BMI: 40.6 Code : 31419-6 Heart Rate 1 : 109 bpm Height: 5'2" SpO2: 97% Weight: 222 lbs 01/01/2015 Blood Pressure 1: 136/64 Code : 8480-6 BMI: 40.4 Code : 35352-7 Heart Rate 1 : 94 bpm Height: 5'2" SpO2: 96% Weight: 221 lbs 12/25/2014 Blood Pressure 1: 146/80 Code : 8480-6 Heart Rate 1: 95 bpm Height: 5'2" SpO2: 94% 11/04/2014 Blood Pressure 1: 110/70 Code : 8480-6 BMI: 40.2 Code : 51278-8 Heart Rate 1 : 878 bpm Height: 5'2" SpO2: 97% Weight: 220 lbs 09/08/2014 Blood Pressure 1: 142/78 Code : 8480-6 BMI: 39.5 Code : 54052-1 Heart Rate 1 : 97 bpm Height: 5'2" SpO2: 98% Weight: 216 lbs 08/29/2014 Blood Pressure 1: 140/90 Code : 8480-6 Blood Pressure 2: 120/70 Code: 8480-6 BMI: 40.2 Code: 06151-3 Heart Rate 1: 88 bpm Height: 5'2" Weight: 220 lbs 06/30/2014 Blood Pressure 1: 132/74 Code : 8480-6 BMI: 39.1 Code : 38136-3 Heart Rate 1 : 76 bpm Height: 5'2" Weight: 214 lbs 06/12/2014 Blood Pressure 1: 118/76 Code : 8480-6 BMI: 40.4 Code : 11679-4 Heart Rate 1 : 86 bpm Height: 5'2" SpO2: 96% Weight: 221 lbs 05/26/2014 Blood Pressure 1: 128/78 Code : 8480-6 BMI: 39.5 Code : 34827-6 Heart Rate 1 : 76 bpm Height: 5'2" Weight: 216 lbs 04/15/2014 Blood Pressure 1: 144/72 Code : 8480-6 BMI: 40.8 Code : 92867-1 Heart Rate 1 : 60 bpm Height: 5'2" Weight: 223 lbs 03/25/2014 Blood Pressure 1: 118/72 Code : 8480-6 BMI: 41.2 Code : 52677-7 Heart Rate 1 : 80 bpm Height: 5'2" Weight: 225 lbs 03/03/2014 Blood Pressure 1: 138/86 Code : 8480-6 BMI: 41.5 Code : 97060-4 Heart Rate 1 : 104 bpm Height: 5'2" Temperature: 36.1 (C) / 97.0 (F) Weight: 227 lbs 02/13/2014 Blood Pressure 1: 142/88 Code : 8480-6 BMI: 40.8 Code : 56094-9 Heart Rate 1 : 88 bpm Height: 5'2" Weight: 223 lbs 01/27/2014 Blood Pressure 1: 124/68 Code : 8480-6 BMI: 39.9 Code : 24621-0 Heart Rate 1 : 89 bpm Height: 5'2" SpO2: 94% Weight: 218 lbs 12/26/2013 Blood Pressure 1: 108/52 Code : 8480-6 BMI: 41.2 Code : 17552-4 Heart Rate 1 : 96 bpm Height: 5'2" Weight: 225 lbs 12/12/2013 Blood Pressure 1: 158/88 Code : 8480-6 BMI: 42.6 Code : 50692-9 Heart Rate 1 : 80 bpm Height: 5'2" Weight: 233 lbs 11/14/2013 Blood Pressure 1: 120/60 Code : 8480-6 BMI: 42.4 Code : 95782-8 Heart Rate 1 : 96 bpm Height: 5'2" Temperature: 5423.3 (C ) / 9794.0 (F) Weight: 232 lbs 10/21/2013 Blood Pressure 1: 100/60 Code : 8480-6 BMI: 41.9 Code : 18619-2 Heart Rate 1 : 96 bpm Height: 5'2" Weight: 229 lbs 10/03/2013 Blood Pressure 1: 122/72 Code : 8480-6 BMI: 42.3 Code : 90660-6 Heart Rate 1 : 84 bpm Height: 5'2" Weight: 231 lbs 09/27/2013 Blood Pressure 1: 112/58 Code : 8480-6 Heart Rate 1: 72 bpm SpO2: 93% Temperature: 36.2 (C) / 97.1 (F) Weight: 09/23/2013 Blood Pressure 1: 108/76 Code : 8480-6 BMI: 42.4 Code : 32002-6 Heart Rate 1 : 95 bpm Height: 5'2" SpO2: 96% Weight: 232 lbs 09/20/2013 Blood Pressure 1: 150/88 Code : 8480-6 BMI: 42.4 Code : 85914-9 Heart Rate 1 : 104 bpm Height: 5'2" Weight: 232 lbs 09/10/2013 Blood Pressure 1: 112/62 Code : 8480-6 Heart Rate 1: 88 bpm Weight: 238 lbs 08/19/2013 Blood Pressure 1: 102/58 Code : 8480-6 BMI: 43.7 Code : 41072-3 Heart Rate 1 : 80 bpm Height: 5'2" Weight: 239 lbs 08/12/2013 Blood Pressure 1: 110/60 Code : 8480-6 BMI: 43.3 Code : 58721-7 Heart Rate 1 : 90 bpm Height: 5'2" SpO2: 96% Weight: 236 lbs 8 oz 08/01/2013 Blood Pressure 1: 128/72 Code : 8480-6 BMI: 42.6 Code : 37538-9 Heart Rate 1 : 78 bpm Height: 5'2" SpO2: 97% Weight: 233 lbs 07/19/2013 Blood Pressure 1: 100/60 Code : 8480-6 BMI: 44.3 Code : 77810-7 Heart Rate 1 : 92 bpm Height: 5'2" Temperature: 36.2 (C) / 97.2 (F) Weight: 242 lbs 07/15/2013 Blood Pressure 1: 180/92 Code : 8480-6 Heart Rate 1: 115 bpm SpO2: 98% Weight: 06/27/2013 Blood Pressure 1: 114/64 Code : 8480-6 BMI: 44.1 Code : 21833-0 Heart Rate 1 : 114 bpm Height: 5'2" SpO2: 93% Weight: 241 lbs 06/10/2013 Blood Pressure 1: 174/86 Code : 8480-6 BMI: 44.1 Code : 80419-3 Heart Rate 1 : 132 bpm Height: 5'2" SpO2: 94% Temperature: 35.6 (C) / 96.0 (F) Weight: 241 lbs 05/07/2013 Blood Pressure 1: 160/88 Code : 8480-6 BMI: 43.5 Code : 10029-2 Heart Rate 1 : 108 bpm Height: 5'2" SpO2: 96% Weight: 238 lbs 04/16/2013 Blood Pressure 1: 116/62 Code : 8480-6 BMI: 44.6 Code : 90084-1 Heart Rate 1 : 90 bpm Height: 5'2" SpO2: 94% Weight: 244 lbs 03/21/2013 Blood Pressure 1: 102/64 Code : 8480-6 BMI: 42.8 Code : 75637-3 Height: 5'2" Weight: 234 lbs 02/12/2013 Blood Pressure 1: 130/78 Code : 8480-6 BMI: 42.0 Code : 56221-9 Heart Rate 1 : 100 bpm Height: 5'2" Weight: 229 lbs 8 oz 02/04/2013 Blood Pressure 1: 126/68 Code : 8480-6 BMI: 44.3 Code : 10251-3 Heart Rate 1 : 88 bpm Height: 5'2" Weight: 242 lbs 01/17/2013 Blood Pressure 1: 132/76 Code : 8480-6 Heart Rate 1: 121 bpm SpO2: 97% Weight: 242 lbs 12/31/2012 Blood Pressure 1: 144/90 Code : 8480-6 BMI: 43.0 Code : 00107-9 Heart Rate 1 : 96 bpm Height: 5'2" Temperature: 36.2 (C) / 97.2 (F) Weight: 235 lbs 12/20/2012 Blood Pressure 1: 156/96 Code : 8480-6 BMI: 42.4 Code : 85844-9 Heart Rate 1 : 96 bpm Height: [...] Code : 8480-6 BMI: 38.8 Code : 59099-7 Heart Rate 1 : 96 bpm Height: 5'2" Temperature: 36.3 (C) / 97.3 (F) Weight: 212 lbs 08/23/2012 Blood Pressure 1: 116/72 Code : 8480-6 BMI: 38.3 Code : 37791-8 Heart Rate 1 : 92 bpm Height: 5'2" Weight: 209 lbs 8 oz 08/13/2012 Blood Pressure 1: 140/92 Code : 8480-6 BMI: 37.3 Code : 03051-4 Heart Rate 1 : 104 bpm Height: 5'2" Weight: 204 lbs 08/07/2012 Blood Pressure 1: 148/98 Code : 8480-6 BMI: 36.6 Code : 62890-8 Heart Rate 1 : 102 bpm Height: [...] Code : 8480-6 BMI: 35.3 Code : 49321-2 Heart Rate 1 : 105 bpm Height: [...] december - she was seen by her business continuity manager again in mid 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 She states that she saw her business continuity manager and was to be started on [...] lesion Alleviating Factors medication 09/10/2013 went to [facility] on Monday and start on Cipro diabetes [...] differently. States she did eat BBQ from [employer] yesterday for lunch. hypertension Quality [...] data Encounters Encounter Performer Location Codes Date ([id number]) [id number] EST. PATIENT, LEVEL III Diagnosis: Cough[ICD10: R05] Diagnosis: Chronic maxillary sinusitis[ICD10: J32.0] Diagnosis: Type 2 diabetes mellitus with hyperglycemia[ICD10: E11.65] Rika Motta MD, [facility] CPT-4: 02392 04/27/2018 [id number]) 13857 EST. PATIENT, LEVEL IV Diagnosis: Essential (primary) hypertension[ICD10: I10] Diagnosis: Type 2 diabetes mellitus with hyperglycemia[ICD10: E11.65] Diagnosis: Generalized anxiety disorder[ICD10: F41.1] Diagnosis: Weakness[ICD10: R53.1] Rika Motta MD, [facility] CPT-4: 84042 04/10/2018 ([id number]) 61007 EST. PATIENT, LEVEL IV Diagnosis: Type 2 diabetes mellitus with hyperglycemia[ICD10: E11.65] Diagnosis: Low back pain[ICD10: M54.5] Diagnosis: Essential (primary) hypertension[ICD10: I10] Diagnosis: Generalized anxiety disorder[ICD10: F41.1] Rika Motta MD, [facility] CPT-4: 08720 03/12/2018 ([id number]) 39213 EST. PATIENT, LEVEL III Diagnosis: Type 2 diabetes mellitus with hyperglycemia[ICD10: E11.65] Diagnosis: Essential (primary) hypertension[ICD10: I10] Diagnosis: Dysuria[ICD10: R30.0] Diagnosis: Vitamin D deficiency, unspecified[ICD10: E55.9] Diagnosis: Low back pain[ICD10: M54.5] Rika Motta MD, [facility] CPT-4: 37328 02/20/2018 ([id number]) 43662 EST. PATIENT, LEVEL III Diagnosis: Dysuria[ICD10: R30.0] Diagnosis: Essential (primary) hypertension[ICD10: I10] Rika Motta MD, [facility] CPT-4: 40996 11/27/2017 ([id number]) 45198 EST. PATIENT, LEVEL III Diagnosis: Type 2 diabetes mellitus with hyperglycemia[ICD10: E11.65] Diagnosis: Chronic pain syndrome[ICD10: G89.4] Rika Motta MD, [facility] CPT-4: 40539 09/15/2017 ([id number]) 02384 EST. 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 PATIENT, LEVEL III Diagnosis: Chronic maxillary sinusitis[ICD10: J32.0] Diagnosis: Type 2 diabetes mellitus with hyperglycemia[ICD10: E11.65] Diagnosis: Hordeolum externum left upper eyelid[ICD10: H00.014] Rika Motta MD, [facility] CPT-4: 23011 08/03/2017 ([id number]) 57972 EST. PATIENT, LEVEL IV Diagnosis: Type 2 diabetes mellitus with hyperglycemia[ICD10: E11.65] Diagnosis: Hordeolum externum left upper eyelid[ICD10: H00.014] Diagnosis: Essential (primary) hypertension[ICD10: I10] Diagnosis: Chronic obstructive pulmonary disease, unspecified[ICD10: J44.9] Rika Motta MD, [facility] CPT-4: 70187 07/27/2017 ([id number]) 74915 EST. PATIENT, LEVEL IV Diagnosis: Type 2 diabetes mellitus with hyperglycemia[ICD10: E11.65] Diagnosis: Essential (primary) hypertension[ICD10: I10] Tessie Motta MD, [facility] CPT-4: 76884 06/13/2017 96499 EST. PATIENT, LEVEL IV Diagnosis: Periapical abscess without sinus[ICD10: K04.7] Arlette Motta MD, [facility] CPT-4: 74513 04/21/2017 ([id number]) 01461 EST. PATIENT, LEVEL IV Diagnosis: Type 2 diabetes mellitus with hyperglycemia[ICD10: E11.65] Diagnosis: Cellulitis of abdominal wall[ICD10: L03.311] Diagnosis: Chronic pain syndrome[ICD10: G89.4] Diagnosis: Essential (primary) hypertension[ICD10: I10] Diagnosis: Unsteadiness on feet[ICD10: R26.81] Rika Motta MD, [facility] CPT-4: 84086 04/18/2017 ([id number]) 83525 EST. PATIENT, LEVEL IV Diagnosis: Type 2 diabetes mellitus with hyperglycemia[ICD10: E11.65] Diagnosis: Hypokalemia[ICD10: E87.6] Diagnosis: Essential (primary) hypertension[ICD10: I10] Diagnosis: Paroxysmal atrial fibrillation[ICD10: I48.0] Rika Motta MD, [facility] CPT-4: 50925 03/27/2017 ([id number]) 13690 EST. PATIENT, LEVEL IV Diagnosis: Essential (primary) hypertension[ICD10: I10] Diagnosis: Type 2 diabetes mellitus with hyperglycemia[ICD10: E11.65] Diagnosis: Hypokalemia[ICD10: E87.6] Diagnosis: Generalized abdominal pain[ICD10: R10.84] Rika Motta MD, [facility] CPT-4: 28788 02/27/2017 ([id number]) 93380 EST. PATIENT, LEVEL III Diagnosis: Drug induced constipation[ICD10: K59.03] Rika Motta MD, [facility] CPT-4: 48233 02/21/2017 ([id number]) 44442 EST. PATIENT, LEVEL IV Diagnosis: Generalized abdominal pain[ICD10: R10.84] Diagnosis: Hypokalemia[ICD10: E87.6] Diagnosis: Hypomagnesemia[ICD10: E83.42] Rika Motta MD, [facility] CPT-4: 51877 02/17/2017 [id number]) 71103 EST. PATIENT, LEVEL IV Diagnosis: Paroxysmal atrial fibrillation[ICD10: I48.0] Diagnosis: Essential (primary) hypertension[ICD10: I10] Diagnosis: Chronic obstructive pulmonary disease, unspecified[ICD10: J44.9] Diagnosis: Type 2 diabetes mellitus with hyperglycemia[ICD10: E11.65] Diagnosis: Diarrhea, unspecified[ICD10: R19.7] Rika Motta MD, [facility] CPT-4: 83173 02/13/2017 ([id number]) 50818 EST. PATIENT, LEVEL IV Diagnosis: Type 2 diabetes mellitus with hyperglycemia[ICD10: E11.65] Diagnosis: Pain in right shoulder[ICD10: M25.511] Diagnosis: Chronic maxillary sinusitis[ICD10: J32.0] Rika Motta MD, [facility] CPT-4: 00360 01/30/2017 ([id number]) 98975 EST. PATIENT, LEVEL IV Diagnosis: Essential (primary) hypertension[ICD10: I10] Diagnosis: Type 2 diabetes mellitus with hyperglycemia[ICD10: E11.65] Diagnosis: Hypothyroidism, unspecified[ICD10: E03.9] Diagnosis: Generalized anxiety disorder[ICD10: F41.1] Diagnosis: Chronic pain syndrome[ICD10: G89.4] Diagnosis: Restless legs syndrome[ICD10: G25.81] Diagnosis: Obstructive sleep apnea (adult) (pediatric)[ICD10: G47.33] Rika Motta MD, [facility] CPT-4: 80913 01/16/2017 43219 EST. PATIENT, LEVEL IV Diagnosis: Other acute sinusitis[ICD10: J01.80] Diagnosis: Diplopia[ICD10: H53.2] Arlette Motta MD, [facility] CPT-4: 49305 12/13/2016 ([id number]) 54273 EST. PATIENT, LEVEL IV Diagnosis: Essential (primary) hypertension[ICD10: I10] Diagnosis: Fasciculation[ICD10: R25.3] Diagnosis: Generalized anxiety disorder[ICD10: F41.1] Diagnosis: Other obesity due to excess calories[ICD10: E66.09] Diagnosis: Zoster without complications[ICD10: B02.9] Diagnosis: Unilateral primary osteoarthritis, right knee[ICD10: M17.11] Diagnosis: Unsteadiness on feet[ICD10: R26.81] Rika Motta MD, [facility] CPT-4: 23158 11/11/2016 ([id number]) 40263 EST. PATIENT, LEVEL IV Diagnosis: Zoster without complications[ICD10: B02.9] Diagnosis: Type 2 diabetes mellitus with hyperglycemia[ICD10: E11.65] Diagnosis: Vomiting, unspecified[ICD10: R11.10] Rika Motta MD, [facility] CPT-4: 26501 10/28/2016 ([id number]) 72327 EST. PATIENT, LEVEL III Diagnosis: Pain in right knee[ICD10: M25.561] Diagnosis: Zoster without complications[ICD10: B02.9] Rika Motta MD, [facility] CPT-4: 14399 10/13/2016 ([id number]) 55156 EST. PATIENT, LEVEL IV Diagnosis: Acute recurrent maxillary sinusitis[ICD10: J01.01] Diagnosis: Low back pain[ICD10: M54.5] Diagnosis: Pain in right knee[ICD10: M25.561] Diagnosis: Allergic rhinitis due to pollen[ICD10: J30.1] Rika Motta MD, [facility] CPT-4: 00951 09/23/2016 ([id number]) 08046 EST. PATIENT, LEVEL IV Diagnosis: Pain in right shoulder[ICD10: M25.511] Diagnosis: Type 2 diabetes mellitus with hyperglycemia[ICD10: E11.65] Diagnosis: Cervicalgia[ICD10: M54.2] Diagnosis: Candidiasis of skin and nail[ICD10: B37.2] Diagnosis: Low back pain[ICD10: M54.5] Rika Motta MD, [facility] CPT-4: 12182 09/13/2016 ([id number]) 05308 EST. 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 PATIENT, LEVEL IV Diagnosis: Type 2 diabetes mellitus with hyperglycemia[ICD10: E11.65] Diagnosis: Candidiasis of skin and nail[ICD10: B37.2] Diagnosis: Chronic obstructive pulmonary disease, unspecified[ICD10: J44.9] Diagnosis: Paroxysmal atrial fibrillation[ICD10: I48.0] Diagnosis: Pneumonia, unspecified organism[ICD10: J18.9] Rika Motta MD, [facility] CPT-4: 90933 07/26/2016 ([id number]) 16537 EST. PATIENT, LEVEL IV Diagnosis: Type 2 diabetes mellitus with hyperglycemia[ICD10: E11.65] Diagnosis: Generalized anxiety disorder[ICD10: F41.1] Diagnosis: Essential (primary) hypertension[ICD10: I10] Diagnosis: Chronic pain syndrome[ICD10: G89.4] Rika Motta MD, [facility] CPT-4: 35072 05/24/2016 ([id number]) 12478 EST. PATIENT, LEVEL IV Diagnosis: Menopausal and female climacteric states[ICD10: N95.1] Diagnosis: Type 2 diabetes mellitus with hyperglycemia[ICD10: E11.65] Diagnosis: Generalized anxiety disorder[ICD10: F41.1] Rika Motta MD, [facility] CPT-4: 80088 04/19/2016 ([id number]) 67229 EST. PATIENT, LEVEL IV Diagnosis: Type 2 diabetes mellitus with hyperglycemia[ICD10: E11.65] Diagnosis: Generalized anxiety disorder[ICD10: F41.1] Diagnosis: Essential (primary) hypertension[ICD10: I10] Diagnosis: Dysuria[ICD10: R30.0] Rika Motta MD, [facility] CPT-4: 38881 04/11/2016 ([id number]) 57799 EST. PATIENT, LEVEL IV Diagnosis: Generalized anxiety disorder[ICD10: F41.1] Diagnosis: Major depressive disorder, single episode, mild[ICD10: F32.0] Diagnosis: Hypothyroidism, unspecified[ICD10: E03.9] Diagnosis: Type 2 diabetes mellitus with hyperglycemia[ICD10: E11.65] Rika Motta MD, [facility] CPT-4: 53483 03/21/2016 ([id number] 00312 EST. PATIENT, LEVEL IV Diagnosis: Type 2 diabetes mellitus with hyperglycemia[ICD10: E11.65] Diagnosis: Cellulitis of right lower limb[ICD10: L03.115] Diagnosis: Other elevated white blood cell count[ICD10: D72.828] Diagnosis: Localized edema[ICD10: R60.0] Rika Motta MD, [facility] CPT-4: 66687 03/11/2016 ([id number]) 53827 EST. PATIENT, LEVEL IV Diagnosis: Type 2 diabetes mellitus with hyperglycemia[ICD10: E11.65] Diagnosis: Localized edema[ICD10: R60.0] Diagnosis: Other conjunctivitis[ICD10: H10.89] Diagnosis: Obstructive sleep apnea (adult) (pediatric)[ICD10: G47.33] Diagnosis: Unspecified asthma, uncomplicated[ICD10: J45.909] Diagnosis: VAC STREP PNEUMONIAE-FLU[ICD10: Z23] Rika Motta MD, [facility] CPT-4: 13613 02/26/2016 ([id number]) 43364 EST. PATIENT, LEVEL IV Diagnosis: Essential (primary) hypertension[ICD10: I10] Diagnosis: Paroxysmal atrial fibrillation[ICD10: I48.0] Diagnosis: Type 2 diabetes mellitus with hyperglycemia[ICD10: E11.65] Diagnosis: Obstructive sleep apnea (adult) (pediatric)[ICD10: G47.33] Diagnosis: Chronic obstructive pulmonary disease, unspecified[ICD10: J44.9] Rika Motta MD, [facility] CPT-4: 83284 02/02/2016 ([id number]) 90188 EST. 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 PATIENT, LEVEL IV Diagnosis: Type 2 diabetes mellitus with hyperglycemia[ICD10: E11.65] Diagnosis: Generalized anxiety disorder[ICD10: F41.1] Diagnosis: Essential (primary) hypertension[ICD10: I10] Diagnosis: Restless legs syndrome[ICD10: G25.81] Diagnosis: Dysuria[ICD10: R30.0] Rika Motta MD, [facility] CPT-4: 20774 11/27/2015 00839 EST. PATIENT, LEVEL IV Diagnosis: Addisonian crisis[ICD10: E27.2] Arlette Motta MD, [facility] CPT-4 : 59844 11/12/2015 23311 EST. PATIENT, LEVEL IV Diagnosis: Acute bronchitis due to other specified organisms[ICD10: J20.8] Diagnosis: Other acute sinusitis[ICD10: J01.80] Diagnosis: Other malaise[ICD10: R53.81] Diagnosis: Cough[ICD10: R05] Arlette Motta MD, [facility] CPT-4: 10123 11/10/2015 [id number] EST. PATIENT, LEVEL IV Diagnosis: Pain in left knee[ICD10: M25.562] Diagnosis: Cellulitis of right toe[ICD10: L03.031] Arlette Motta MD, [facility] CPT-4: 37835 10/27/2015 ([id number]) 70312 EST. PATIENT, LEVEL IV Diagnosis: Essential (primary) hypertension[ICD10: I10] Diagnosis: Localized edema[ICD10: R60.0] Diagnosis: Type 2 diabetes mellitus with hyperglycemia[ICD10: E11.65] Rika Motta MD, [facility] CPT-4: 01484 09/22/2015 ([id number]) [id number] EST. PATIENT, LEVEL IV Diagnosis: Essential (primary) hypertension[ICD10: I10] Diagnosis: Type 2 diabetes mellitus with hyperglycemia[ICD10: E11.65] Diagnosis: Cellulitis of right toe[ICD10: L03.031] Rika Motta MD, [facility] CPT-4: 89583 09/01/2015 09559 01110 EST. PATIENT, LEVEL IV Diagnosis: Type 2 diabetes mellitus with hyperglycemia[ICD10: E11.65] Diagnosis: Essential (primary) hypertension[ICD10: I10] Diagnosis: Generalized anxiety disorder[ICD10: F41.1] Diagnosis: Hypothyroidism, unspecified[ICD10: E03.9] Diagnosis: Body mass index (BMI) 40.0-44.9, adult[ICD10: Z68.41] Rika Motta MD, [facility] CPT-4: 05406 08/10/2015 61334 EST. PATIENT, LEVEL IV Diagnosis: Acute bronchitis due to other specified organisms[ICD10: J20.8] Diagnosis: Pain in left knee[ICD10: M25.562] Diagnosis: Type 2 diabetes mellitus with hyperglycemia[ICD10: E11.65] Arlette Motta MD, [facility] CPT-4: 26389 06/26/2015 ([id number]) 18296 EST. PATIENT, LEVEL IV Diagnosis: Cellulitis of right lower limb[ICD10: L03.115] Diagnosis: Type 2 diabetes mellitus with hyperglycemia[ICD10: E11.65] Diagnosis: Essential (primary) hypertension[ICD10: I10] Diagnosis: Edema, unspecified[ICD10: R60.9] Rika Motta MD, [facility] CPT-4: 33366 04/14/2015 ([id number]) 44096 EST. PATIENT, LEVEL IV Diagnosis: Essential (primary) hypertension[ICD10: I10] Diagnosis: Type 2 diabetes mellitus with hyperglycemia[ICD10: E11.65] Diagnosis: Localized edema[ICD10: R60.0] Diagnosis: Dysuria[ICD10: R30.0] Rika Motta MD, [facility] CPT-4: 97524 03/03/2015 99006) 01377 EST. PATIENT, LEVEL III Diagnosis: Blister of leg[ICD9: 916.2] Diagnosis: Rash[ICD9: 782.1] Diagnosis: EDEMA[ICD9: 782.3] Tessie Motta MD, [facility] CPT-4: 66354 01/15/2015 ([id number]) 62073 EST. PATIENT, LEVEL IV Diagnosis: Cellulitis, leg[ICD9: 682.6] Diagnosis: DIABETES TYPE II[ICD9: 250.00] Tessie Motta MD, [facility] CPT- 4: 16296 01/01/2015 ([id number]) Miscellaneous no charge Diagnosis: CVA (cerebral vascular accident)[ICD9: 434.91] Isabella Brittny Motta MD, [facility] CPT-4: 96766 12/25/2014 ([id number]) 03773 EST. PATIENT, LEVEL IV Diagnosis: ESSENTIAL HYPERTENSION[ICD9: 401.9] Diagnosis: DM W/O COMPLICATION TYPE II, UNCONTROLLED[ICD9: 250.02] Diagnosis: EDEMA[ICD9: 782.3] Diagnosis: Dysuria[ICD9: 788.1] Rika Motta MD, [facility] CPT-4: 75208 11/04/2014 ([id number]) 49412 EST. PATIENT, LEVEL IV Diagnosis: EDEMA[ICD9: 782.3] Diagnosis: Cellulitis of right leg[ICD9: 682.6] Diagnosis: Allergic rhinitis[ICD9: 477.9] Rika Motta MD, [facility] CPT-4: 19183 09/08/2014 ([id number]) 61515 EST. PATIENT, LEVEL IV Diagnosis: EDEMA[ICD9: 782.3] Diagnosis: ESSENTIAL HYPERTENSION[ICD9: 401.9] Diagnosis: DIABETES TYPE II[ICD9: 250.00] Diagnosis: Cellulitis of right leg[ICD9: 682.6] Rika Motta MD, [facility] CPT-4: 16959 08/29/2014 ([id number]) 51349 EST. PATIENT, LEVEL III Diagnosis: EDEMA[ICD9: 782.3] Diagnosis: DIABETES TYPE II[ICD9: 250.00] Tessie Motta MD, [facility] CPT- 4: 98152 06/30/2014 ([id number]) 63442 EST. PATIENT, LEVEL IV Diagnosis: EDEMA[ICD9: 782.3] Diagnosis: DM W/O COMPLICATION TYPE II, UNCONTROLLED[ICD9: 250.02] Diagnosis: Sciatica[ICD9: 724.3] Tessie Motta MD, [facility] CPT-4: 10277 06/12/2014 ([id number]) 58028 EST. PATIENT, LEVEL III Diagnosis: Cellulitis, leg[ICD9: 682.6] Diagnosis: EDEMA[ICD9: 782.3] Rika Motta MD, [facility] CPT-4: 92555 05/26/2014 ([id number]) 80496 EST. PATIENT, LEVEL IV Diagnosis: DIABETES TYPE II[ICD9: 250.00] Diagnosis: Chronic sinusitis[ICD9: 473.9] Tessie Motta MD, [facility] CPT- 4: 15932 04/15/2014 ([id number]) 00791 EST. PATIENT, LEVEL IV Diagnosis: DM W/O COMPLICATION TYPE II, UNCONTROLLED[ICD9: 250.02] Diagnosis: CHRONIC SINUSITIS[ICD9: 473.9] Diagnosis: EDEMA[ICD9: 782.3] Diagnosis: Right knee pain[ICD9: 719.46] Rika Motta MD [facility] CPT-4: 13654 03/25/2014 ([id number]) 81112 EST. PATIENT, LEVEL IV Diagnosis: Blister of leg[ICD9: 916.2] Diagnosis: EDEMA[ICD9: 782.3] Diagnosis: DM W/O COMPLICATION TYPE II, UNCONTROLLED[ICD9: 250.02] Diagnosis: ESSENTIAL HYPERTENSION[ICD9: 401.9] Rika Motta MD [facility] CPT-4: 53738 03/03/2014 ([id number]) 84117 EST. PATIENT, LEVEL IV Diagnosis: CELLULITIS OF LEG[ICD9: 682.6] Diagnosis: Diabetes mellitus type 2, uncontrolled[ICD9: 250.02] Diagnosis: ESSENTIAL HYPERTENSION[ICD9: 401.9] Diagnosis: EDEMA[ICD9: 782.3] Tessie Motta MD, [facility] CPT-4: 54099 02/13/2014 ([id number]) 05251 EST. PATIENT, LEVEL IV Diagnosis: Diabetes mellitus type 2, uncontrolled[ICD9: 250.02] Tessie Motta MD, [facility] CPT-4: 34094 01/27/2014 ([id number]) 34901 EST. PATIENT, LEVEL III Diagnosis: OPEN WND KNEE/LEG/ANKLE[ICD9: 891.0] Diagnosis: EDEMA[ICD9: 782.3] Rika Motta MD, [facility] CPT-4: 36581 12/26/2013 ([id number]) 19232 EST. PATIENT, LEVEL III Diagnosis: Cellulitis of right leg[ICD9: 682.6] Diagnosis: OPEN WND KNEE/LEG/ANKLE[ICD9: 891.0] Rika Motta MD [facility] CPT-4: 80834 12/12/2013 ([id number]) 36539 EST. PATIENT, LEVEL IV Diagnosis: Asthma exacerbation[ICD9: 493.92] Diagnosis: COUGH[ICD9: 786.2] Diagnosis: EDEMA[ICD9: 782.3] Rika Motta MD [facility] CPT-4: 37703 11/14/2013 ([id number]) 91907 EST. PATIENT, LEVEL III Diagnosis: OPEN WND KNEE/LEG/ANKLE[ICD9: 891.0] Diagnosis: EDEMA[ICD9: 782.3] Rika Motta MD [facility] CPT-4: 39057 10/21/2013 ([id number]) 19621 EST. PATIENT, LEVEL IV Diagnosis: ESSENTIAL HYPERTENSION[SNOMED: 14832762] Diagnosis: Right knee pain[ICD9: 719.46] Diagnosis: OPEN WND KNEE/LEG/ANKLE[ICD9: 891.0] Rika Motta MD [facility] CPT-4: 19676 10/03/2013 ([id number]) Miscellaneous no charge Diagnosis: Open wound of leg[ICD9: 891.0] Rika Motta MD [facility] CPT-4: 37952 09/27/2013 74021 EST. PATIENT, LEVEL II Diagnosis: Open wound of leg[ICD9: 891.0] Diagnosis: Wrist pain, left[ICD9: 719.43] Rika Motta MD [facility] CPT-4: 40695 09/23/2013 ([id number]) 69823 EST. PATIENT, LEVEL IV Diagnosis: CELLULITIS OF LEG[ICD9: 682.6] Diagnosis: ESSENTIAL HYPERTENSION[SNOMED: 12066839] Diagnosis: EDEMA[ICD9: 782.3] Rika Motta MD, [facility] CPT-4: 36120 09/20/2013 ([id number]) 09239 EST. PATIENT, LEVEL IV Diagnosis: Open wound of right lower leg[ICD9: 891.0] Diagnosis: DM W/O COMPLICATION TYPE II, UNCONTROLLED[SNOMED: 13665219] Diagnosis: Edema[ICD9: 782.3] Rika Motta MD [facility] CPT-4: 86897 09/10/2013 ([id number]) 94912 EST. PATIENT, LEVEL III Diagnosis: DM W/O COMPLICATION TYPE II, UNCONTROLLED[SNOMED: 46725366] Diagnosis: EDEMA[ICD9: 782.3] Tessie Motta MD, [facility] CPT-4: 67824 08/19/2013 ([id number]) 56713 EST. PATIENT, LEVEL IV Diagnosis: EDEMA[ICD9: 782.3] Diagnosis: DIABETES TYPE II[SNOMED: 878474477] Diagnosis: HYPOTHYROIDISM[ICD9: 244.9] Diagnosis: LUMBAGO[ICD9: 724.2] Diagnosis: SCIATICA[ICD9: 724.3] Tessie Motta MD, [facility] CPT-4: 80871 08/12/2013 ([id number]) 66981 EST. PATIENT, LEVEL IV Diagnosis: DIABETES TYPE II[SNOMED: 807534580] Diagnosis: EDEMA[ICD9: 782.3] Diagnosis: HYPOTHYROIDISM[ICD9: 244.9] Diagnosis: Encounter for long-term (current) use of other medications[ICD9: V58.69] Diagnosis: LUMBAGO[ICD9: 724.2] Rika Motta MD, [facility] CPT-4: 06633 08/01/2013 ([id number]) 82657 EST. PATIENT, LEVEL III Diagnosis: Blister of right foot[ICD9: 917.2] Rika Motta MD, [facility] CPT-4: 92492 07/19/2013 ([id number]) 94539 EST. PATIENT, LEVEL III Diagnosis: Cellulitis of right leg[ICD9: 682.6] Diagnosis: ESSENTIAL HYPERTENSION[SNOMED: 59918884] Diagnosis: EDEMA[ICD9: 782.3] Rika Motta MD, [facility] CPT-4: 01214 07/15/2013 ([id number]) 43354 EST. PATIENT, LEVEL IV Diagnosis: DIABETES TYPE II[SNOMED: 210313868] Diagnosis: BACKACHE[ICD9: 724.5] Diagnosis: Muscle spasms of neck[ICD9: 728.85] Tessie Motta MD, [facility] CPT-4: 67979 06/27/2013 ([id number]) 38477 EST. PATIENT, LEVEL IV Diagnosis: DM W/O COMPLICATION TYPE II, UNCONTROLLED[SNOMED: 85604207] Diagnosis: EDEMA[ICD9: 782.3] Diagnosis: OBESITY[ICD9: 278.00] Diagnosis: WHEEZING[ICD9: 786.07] Tessie Motta MD [facility] CPT-4: 71205 06/10/2013 ([id number]) 89664 EST. PATIENT, LEVEL IV Diagnosis: CHRONIC SINUSITIS[ICD9: 473.9] Diagnosis: WHEEZING[ICD9: 786.07] Diagnosis: ACUTE BRONCHITIS[ICD9: 466.0] Diagnosis: Back pain[ICD9: 724.5] Tessie Motta MD, [facility] CPT-4: 74680 05/07/2013 ([id number]) 34712 EST. PATIENT, LEVEL IV Diagnosis: EDEMA[ICD9: 782.3] Diagnosis: COPD (chronic obstructive pulmonary disease) with acute bronchitis[ ICD9: 491.22] Tessie Motta MD [facility] CPT-4: 76823 04/16/2013 ([id number]) 09181 EST. PATIENT, LEVEL IV Diagnosis: Lumbago[ICD9: 724.2] Diagnosis: DM W/O COMPLICATION TYPE II, UNCONTROLLED[SNOMED: 57384591] Diagnosis: EDEMA[ICD9: 782.3] Rika Motta MD, [facility] CPT-4: 50442 03/21/2013 ([id number]) 84495 EST. PATIENT, LEVEL IV Diagnosis: Abdominal pain[ICD9: 789.00] Diagnosis: EDEMA[ICD9: 782.3] Diagnosis: DIABETES TYPE II[SNOMED: 681613446] Tessie Motta MD, [facility] CPT-4: 13854 02/12/2013 ([id number]) 16667 EST. PATIENT, LEVEL III Diagnosis: EDEMA[ICD9: 782.3] Diagnosis: RESPIRATORY ABNORM NEC[ICD9: 786.09] Tessie Motta MD [facility] CPT-4: 04506 02/04/2013 ([id number]) 95476 EST. PATIENT, LEVEL IV Diagnosis: Edema[ICD9: 782.3] Diagnosis: ESSENTIAL HYPERTENSION[SNOMED: 33266550] Tessie Motta MD [facility] CPT-4: 38504 01/17/2013 ([id number]) 06812 EST. 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 PATIENT, LEVEL IV Diagnosis: Cellulitis of left leg[ICD9: 682.6] Diagnosis: DIABETES TYPE II[SNOMED: 260762028] Diagnosis: ESSENTIAL HYPERTENSION[SNOMED: 60167986] Diagnosis: EDEMA[ICD9: 782.3] Rika Motta MD [facility] CPT-4: 86402 12/20/2012 ([id number]) 70830 EST. PATIENT, LEVEL III Diagnosis: Acute bronchitis[ICD9: 466.0] Diagnosis: COUGH[ICD9: 786.2] Tessie Motta MD [facility] CPT-4: 32036 10/29/2012 ([id number]) 83930 EST. PATIENT, LEVEL IV Diagnosis: ESSENTIAL HYPERTENSION[SNOMED: 78100109] Diagnosis: DIABETES TYPE II[SNOMED: 841137812] Diagnosis: HYPOTHYROIDISM[ICD9: 244.9] Tessie Motta MD [facility] CPT- 4: 85049 09/06/2012 ([id number]) 51204 EST. PATIENT, LEVEL IV Diagnosis: DIABETES TYPE II[SNOMED: 420907945] Diagnosis: ESSENTIAL HYPERTENSION[SNOMED: 97384530] Diagnosis: Diarrhea[ICD9: 787.91] Tessie Motta MD, [facility] CPT-4: 64277 08/23/2012 ([id number]) 17899 EST. PATIENT, LEVEL III Diagnosis: ESSENTIAL HYPERTENSION[SNOMED: 94862915] Diagnosis: Gastroenteritis[ICD9: 558.9] Rika Motta MD [facility] CPT-4: 05995 08/13/2012 ([id number]) 47181 EST. PATIENT, LEVEL IV Diagnosis: Diarrhea[ICD9: 787.91] Diagnosis: ESSENTIAL HYPERTENSION[SNOMED: 96520842] Diagnosis: DM W/O COMPLICATION TYPE II, UNCONTROLLED[SNOMED: 39248454] Rika Motta MD, [facility] CPT-4: 79336 08/07/2012 ([id number]) 43680 EST. PATIENT, LEVEL III Diagnosis: Acute sinusitis[ICD9: 461.9] Diagnosis: Thrush[ICD9: 112.0] Rika Motta MD [facility] CPT-4: 76344 07/06/2012 ([id number]) 93901 EST. PATIENT, LEVEL IV Diagnosis: ESSENTIAL HYPERTENSION[SNOMED: 27785213] Diagnosis: DIABETES TYPE II[SNOMED: 647441261] Tessie Motta MD, [facility] CPT-4: 98026 06/07/2012 ([id number]) 51863 EST. PATIENT, LEVEL IV Diagnosis: ESSENTIAL HYPERTENSION[SNOMED: 81025860] Diagnosis: ACUTE SINUSITIS[ICD9: 461.9] Diagnosis: Labial cyst[ICD9: 624.8] Tessie Motta MD [facility] CPT-4: 85936 05/28/2012 ([id number]) 62840 EST. PATIENT, LEVEL IV Diagnosis: ESSENTIAL HYPERTENSION[SNOMED: 80531233] Diagnosis: EDEMA[ICD9: 782.3] Tessie Motta MD [facility] CPT-4: 61447 05/17/2012 ([id number]) 61415 EST. PATIENT, LEVEL IV Diagnosis: EDEMA[ICD9: 782.3] Diagnosis: ESSENTIAL HYPERTENSION[SNOMED: 65449442] Diagnosis: Diarrhea[ICD9: 787.91] Diagnosis: ALLERGIC RHINITIS[ICD9: 477.9] Tessie Motta MD, [facility] CPT- 4: 92080 05/02/2012 ([id number]) 10259 EST. PATIENT, LEVEL IV Diagnosis: ACUTE SINUSITIS[ICD9: 461.9] Diagnosis: ESSENTIAL HYPERTENSION[SNOMED: 70597563] Diagnosis: ALLERGIC RHINITIS[ICD9: 477.9] Tessie Motta MD [facility] CPT- 4: 96072 04/10/2012 ([id number]) 10362 EST. PATIENT, LEVEL IV Diagnosis: ESSENTIAL HYPERTENSION[SNOMED: 90348756] Diagnosis: Foreign body in foot or toe[ICD9: 917.6] Diagnosis: EDEMA[ICD9: 782.3] Tessie Motta MD [facility] CPT-4: 00381 02/27/2012 ([id number]) 76569 EST. PATIENT, LEVEL IV Diagnosis: CELLULITIS OF FOOT[ICD9: 682.7] Diagnosis: DIABETES TYPE II[SNOMED: 630302774] Diagnosis: EDEMA[ICD9: 782.3] Tessie Motta MD [facility] CPT-4: 10292 02/15/2012 (01138) 91261 EST. PATIENT, LEVEL IV Diagnosis: EDEMA[ICD9: 782.3] Diagnosis: ESSENTIAL HYPERTENSION[SNOMED: 04529272] Diagnosis: ACUTE SINUSITIS[ICD9: 461.9] Diagnosis: Dysuria[ICD9: 788.1] Tessie Motta MD [facility] CPT-4: 87078 02/01/2012 ([id number]) 91543 EST. PATIENT, LEVEL IV Diagnosis: DIABETES TYPE II[SNOMED: 126457186] Diagnosis: Diverticulitis[ICD9: 562.11] Tessie Motta MD [facility] CPT- 4: 07963 12/14/2011 ([id number]) 94521 EST. PATIENT, LEVEL IV Diagnosis: Nausea vomiting and diarrhea[ICD9: 787.01] Diagnosis: ESSENTIAL HYPERTENSION[SNOMED: 74995503] Diagnosis: DM W/O COMPLICATION TYPE II, UNCONTROLLED[SNOMED: 83260030] Tessie Motta MD [facility] CPT-4: 44044 11/30/2011 ([id number]) 18791 EST. PATIENT, LEVEL IV Diagnosis: ESSENTIAL HYPERTENSION[SNOMED: 08710958] Diagnosis: DIABETES TYPE II[SNOMED: 833873007] Diagnosis: COUGH[ICD9: 786.2] Tessie Motta MD, [facility] CPT-4: 54104 11/17/2011 ([id number]) Patient admitted to the hospital from clinic (NO CHARGE) Diagnosis: Tachycardia[ICD9: 785.0] Diagnosis: Dyspnea[ICD9: 786.09] Diagnosis: Wheezing[ICD9: 786.07] Diagnosis: FALL AGAINST OBJECT[ICD9: E888.1] Diagnosis: ANXIETY STATE[ICD9: 300.00] Diagnosis: ESSENTIAL HYPERTENSION[SNOMED: 89684527] Diagnosis: Chronic depression[ICD9: 311] Diagnosis: Diabetes mellitus type 2, uncontrolled[SNOMED: 25602213] Tessie Motta MD, [facility] CPT-4: 65482Q 11/03/2011 ([id number]) 91221 EST. PATIENT, LEVEL IV Diagnosis: DIABETES TYPE II[SNOMED: 762843677] Diagnosis: ANXIETY STATE[ICD9: 300.00] Diagnosis: DEPRESSIVE DISORDER NEC[ICD9: 311] Diagnosis: Ulcer of toe[ICD9: 707.15] Tessie Motta MD, [facility] CPT- 4: 27172 10/24/2011 ([id number]) 58465 EST. PATIENT, LEVEL IV Diagnosis: EDEMA[ICD9: 782.3] Diagnosis: ESSENTIAL HYPERTENSION[SNOMED: 94074557] Diagnosis: ANXIETY STATE[ICD9: 300.00] Tessie Motta MD, [facility] CPT- 4: 36693 09/26/2011 66697 EST. PATIENT, LEVEL IV Diagnosis: EDEMA[ICD9: 782.3] Diagnosis: ESSENTIAL HYPERTENSION[SNOMED: 44247697] Rika Motta MD, [facility] CPT-4: 25788 09/20/2011 ([id number]) 20494 EST. PATIENT, LEVEL IV Diagnosis: ACUTE SINUSITIS[ICD9: 461.9] Diagnosis: Allergic rhinitis[ICD9: 477.9] Diagnosis: Cough[ICD9: 786.2] Tessie Motta MD, [facility] CPT-4: 81832 09/01/2011 ([id number]) 15547 EST. PATIENT, LEVEL IV Diagnosis: Chronic sinusitis[ICD9: 473.9] Diagnosis: Anxiety, generalized[ICD9: 300.02] Tessie Motta MD, [facility] CPT-4: 96821 08/15/2011 31286 EST. PATIENT, LEVEL IV Diagnosis: ACUTE SINUSITIS[ICD9: 461.9] Diagnosis: Tachycardia[ICD9: 785.0] Diagnosis: Anxiety[ICD9: 300.00] Diagnosis: Dehydration[ICD9: 276.51] Diagnosis: Sciatica[ICD9: 724.3] Tessie Motta MD, [facility] CPT-4: 73424 08/09/2011 80696 EST. PATIENT, LEVEL IV Diagnosis: DIABETES TYPE II[SNOMED: 299087887] Diagnosis: Sciatica[ICD9: 724.3] Diagnosis: Yeast infection[ICD9: 112.9] Tessie Motta MD, [facility] CPT- 4: 94578 08/01/2011 ([id number]) 97149 EST. PATIENT, LEVEL IV Diagnosis: DIABETES TYPE II[SNOMED: 164055620] Diagnosis: ACUTE MAXILLARY SINUSITIS[ICD9: 461.0] Diagnosis: Fibromyalgia[ICD9: 729.1] Tessie Motta MD, [facility] CPT-4: 14705 06/20/2011 17355 EST. PATIENT, LEVEL IV Diagnosis: ESSENTIAL HYPERTENSION[SNOMED: 08782111] Diagnosis: DIABETES TYPE II[SNOMED: 209192969] Diagnosis: ACUTE MAXILLARY SINUSITIS[ICD9: 461.0] Tessie Motta MD, [facility] CPT-4: 71596 04/18/2011 Plan of Care Planned Activity Notes [...] verbalized understanding. 04/27/2018 Appointment: Rika Bello WPtel: [address] [place], [place] [phone] [place] (30 min) Complex 04/27/2018 Patient Education: Patient Medication Summary Completed 04/27/2018 Appointment: Rika Bello WPtel: [phone] (15 min) Moderate 04/24/2018 Appointment: Nurse [...] and return Monday for removal of IPRO Wwosfof-rhuiozyilz-tv changes in medications-recommend counseling-patient refuses Weakness-patient is deconditioned-refuses PT -recommend patient start walking more 04/10/2018 Appointment: Rika Bello WPtel: [phone] (15 min) Moderate 04/10/2018 Patient Education: Patient Medication Summary Completed 04/10/2018 Appointment: Arlette Skelton WPtel: [facility] (15 min) Moderate 03/21/2018 Appointment: Rika Bello WPtel: [address] [place], [place] [phone] (30 min) Complex 03/20/2018 Visit Plan: Hypertension [...] as directed 03/12/2018 Appointment: Rika Bello WPtel: [address] [place], [place] [phone] (15 min) Moderate 03/12/2018 Patient Education: Patient Medication Summary Completed 03/12/2018 Patient Education: Back Pain Completed 03/12/2018 Appointment: Rika Bello WPtel: [address] [place], [place] [phone] (30 min) Complex 03/08/2018 Appointment: Lab Draw [...] next refill 02/20/2018 Appointment: Rika Bello WPtel: [address] [place], [place] [phone] (15 min) Moderate 02/20/2018 Patient Education: Patient Medication Summary Completed 02/20/2018 Patient Education: Back Pain Completed 02/20/2018 Patient Education: Patient Medication Summary Completed 02/20/2018 Care Plan: Iron Pending 02/20/2018 Appointment: Rika Bello WPtel: [address] [place], [place] [phone] (30 min) Complex 02/19/2018 Appointment: Rika Bello WPtel: [address] [place], [place] [phone] [place] (15 min) Moderate 02/01/2018 Visit Plan: UA negative -no culture indicated 12/14/2017 Appointment: Lab Draw 12/14/2017 Patient Education: Patient Medication Summary Completed 12/14/2017 Visit Plan: Dysuria-urinary incontinence-culture urine HTN- elevated today-monitor at home -follow up with tool tender 11/27/2017 Appointment: Ace [facility]Ptel[facility] [address] [phone] (15 min) Moderate 11/27/2017 Patient Education: [...] Completed 10/27/2017 Care Plan: SCREENINGMAMMOGRAPHYDIGITAL LOINC : 06492-4 Pending 10/27/2017 Appointment: Arlette Skelton WPtel: [phone] [facility] (15 min) Moderate 10/03/2017 Appointment: Arlette Skelton WPtel: [phone] [facility] (15 min) Moderate 10/02/2017 Appointment: Rika Bello WPtel: [phone] [phone] [place] (30 min) Complex 09/29/2017 Visit [...] acutely worsened. 09/27/2017 Appointment: Arlette Skelton WPtel: [facility] (30 min) Complex 09/27/2017 Patient Education: Patient Medication Summary Completed 09/27/2017 Care Plan: CT HEAD/BRAIN W/O DYE LOINC : 25880-7 Pending 09/27/2017 Visit Plan: DM-patient noncompliant with [...] over- medication. 09/15/2017 Appointment: Rika Bello WPtel: [phone] (30 min) Complex 09/15/2017 Patient Education: Patient Medication Summary Completed 09/15/2017 Appointment: Rika Bello WPtel: [phone] (30 min) Complex 09/12/2017 Appointment: Rika Bello WPtel: [phone] (30 min) Complex 09/07/2017 Visit Plan: Jyo-setwkzglbl-mv changes Anemia-check cbc today Dental infection-on clindamycin per Dr Bryant-start probiotics Also needs to monitor blood sugars closely 08/18/2017 Appointment: Rika eBllo WPtel: [phone] (30 min) Complex 08/18/2017 Patient Education: [...] not resolve 08/03/2017 Appointment: Rika Bello WPtel: [phone] (30 min) Complex 08/03/2017 Patient Education: [...] worsen 07/27/2017 Appointment: [facility]ello [facility]Ptel[facility] [phone] [phone] (30 min) [facility] 07/27/2017 Patient Education: Patient Medication Summary Completed [...] in medications 06/13/2017 Appointment: [facility]el[phone] [facility] [place] (15 min) Moderate 06/13/2017 Patient Education: Patient Medication Summary Completed 06/13/2017 Visit Plan: Dental abscess - will send RX - pt is to keep her appointment with her dentist - pt is to notify clinic if symptoms do not improve, if they worsen, or with any other acute changes, questions, or concerns. 04/21/2017 Appointment: Arlette Skelton WPtel: [phone] [facility] (30 min) Complex 04/21/2017 Patient Education: [...] Q HS RESCHEDULE APPT WITH DR YANNA HoBrxvfezmv-nvhreyitl-kl for bactroban ointment provided and instructed on use GKL-aanyfrdwty-rq change in medications Mildly elevated liver enzymes-discussed with Dr motta-suspect due to gabapentin-will monitor levels Gait instability-again recommend patient use walker as well as PT 04/18/2017 Appointment: Rika Bello WPtel: [phone] [phone] [place] (30 min) Complex 04/18/2017 Patient [...] become less controlled. Low potassium- check labs HSY-qdifmygebq-fm changes Afib-check digoxin level with labs Abdominal [...] become less controlled. Low potassium- check labs TVA-rhcujvcxlr-fb changes Afib-check digoxin level with labs Abdominal pain-refill levsin for prn use -call if pain uncontrolled 03/27/2017 Appointment: Rika Bello WPtel: [address] [place], [place] [phone] 03/27/2017 Patient Education: Patient Medication Summary Completed 03/27/2017 Appointment: Rika Bello WPtel: [address] [place], [place] [phone] (30 min) Complex 03/24/2017 Visit Plan: Hypertension - well controlled - continue with current medications, continue with no added salt diet. Pt has been encouraged to exercise daily. The pt has been advised to call the office if there are any acute concerns about change in blood pressure readings at home. DM-uncontrolled- discussed strict diet and exercise with patient Low qgnojutyk-jxkfdhnv-gmeubeey to monitor Abd igzi-etheoihi-xv changes 02/27/2017 Appointment: Rika Bello WPtel[phone] (30 min) Complex 02/27/2017 Patient Education: [...] this regimen. 02/21/2017 Appointment: Rika Bello WPtel: [phone] [phone] [place] (30 min) Complex 02/21/2017 Patient Education: Patient Medication Summary Completed 02/21/2017 Appointment: Rika Bello WPtel: [phone] [phone] [place] (30 min) Complex 02/20/2017 Visit Plan: Generalized [...] on Monday02/17/2017 Appointment: Rika Bello WPtel: [phone] [phone] [place] (30 min) Complex 02/17/2017 Patient Education: Patient Medication Summary Completed 02/17/2017 Visit Plan: COPD-recent hospitalization with pneumonia- symptoms improved-discussed continuous oxygen use at home-appt with Dr Odonnell tomorrow Afib-check digoxin level-patient just finished zpack Diarrhea-continue probiotics-check stool if diarrhea persists DM-bring log to next appt 02/13/2017 Appointment: Rika Bello WPtel: [phone] [phone] (30 min) Complex 02/13/2017 Patient Education: Patient Medication Summary Completed 02/13/2017 Patient Education: Hypertension Completed 02/13/2017 Visit Plan: DM-very uncontrolled-refer to Dr Raines for management RIght shoulder and arm pain-fell 5 days ago-xray shoulder and arm Chronic sinusitis-RX for Dr Cervantes's compound gentamicin nasal spray 01/30/2017 Appointment: Rika Bello WPtel: [facility]9 [phone] (30 min) Complex 01/30/2017 Patient Education: Patient Medication Summary Completed 01/30/2017 Care Plan: Referral Order SNOMED-CT : 816237931 Pending 01/30/2017 Visit Plan: Hypertension - well [...] every night DM-check Hgb A1C Hypothyroidism-check level Ychwdmx-goekdawcvx-iqu well controlled- increase cymbalta-recommend counseling 01/16/2017 Appointment: Rika Bello WPtel: [phone] [phone] (30 min) Complex 01/16/2017 Patient Education: Patient Medication Summary Completed 01/16/2017 Appointment: Rika Bello WPtel: [facility]9 [phone] (30 min) Complex 01/10/2017 Visit Plan: [...] concerns. 12/13/2016 Appointment: Arlette Skelton [facility]Ptel: [phone] (30 min) Complex 12/13/2016 Patient Education: [...] completely heal. 11/11/2016 Appointment: Rika Bello WPtel: [address] [place], [place] [phone] (30 min) [facility] 11/11/2016 Patient Education: Patient Medication Summary Completed 11/11/2016 Care Plan: BMI Above normal followup SELF-MGMT EDUC & TRAIN 1 PT Pending 2016 Appointment: Rika Bello WPtel: [address] [place], [place] [phone] (30 min) Complex 11/08/2016 Visit Plan: Shingles-rash scabbed-no further treatment indicated-patient to call if pain uncontrolled N/V-check labs including UA DM- check labs today Thrush-RX for nystatin 10/28/2016 Appointment: Rika Bello WPtel: [address] [place], [place] [phone] (30 min) Complex 10/28/2016 Patient Education: Patient Medication Summary Completed 10/28/2016 Patient Education: Obesity Completed 10/28/2016 Appointment: Rika Bello WPtel: [address] [place], [place] [phone] (30 min) Complex 10/25/2016 Appointment: Lab Draw 10/21/2016 Patient Education: Patient Medication Summary Completed 10/21/2016 Visit Plan: Right knee pain-patient to schedule appt with Dr Allison Garcia-right arm-concerned for shingles-RX for acyclovir provided and instructed on use-call if symptoms do not resolve or if any worse. 10/13/2016 Appointment: Rika Bello WPtel: [address] [place], [place] [phone] (30 min) Complex 10/13/2016 Patient Education: Patient Medication Summary Completed 10/13/2016 Appointment: Rika Bello WPtel: [address] [place], [place] [phone] (30 min) Complex 10/11/2016 Appointment: Rika Bello WPtel: [address] [place], [place] [phone] [facility] - Annual Wellness Visit 10/04/2016 Visit [...] as directed. 09/23/2016 Appointment: Rika Bello WPtel: [address] [place], [place] [phone] (15 min) Moderate 09/23/2016 Patient Education: Patient [...] 09/13/2016 Care Plan: Referral Order SNOMED-CT : 168513775 Pending 09/13/2016 Appointment: Rika Bello WPtel: [facility]5 [phone] (30 min) Complex 09/09/2016 Appointment: Rika Bello WPtel: [address] [place] [phone] [place] (30 min) Complex 09/08/2016 Visit Plan: [...] CBC 08/09/2016 Appointment: Rika Bello WPtel: [phone] [place] (30 min) Complex 08/09/2016 Patient Education: Patient [...] control. Yeast infection -rx for nystatin powder EDEU-fwdivvayl-kxoxwr pneumonia -afib-patient is oxygen dependent due to [...] control. Yeast infection -rx for nystatin powder RPVH-almgwfjqy-lhidxm pneumonia -afib-patient is oxygen dependent due to [...] control. Yeast infection -rx for nystatin powder ASVH-oteouumlo-bazckg pneumonia -afib-patient is oxygen dependent due to severely compromised pulmonary and cardiac systems-will send orders to [facility] to continue oxygen 07/26/2016 Appointment: Rika Bello WPtel: [phone] [phone] [place] (30 min) Complex 07/26/2016 Patient Education: Patient Medication Summary Completed 07/26/2016 Appointment: Rika Bello WPtel: [phone] [phone] [place] (30 min) Complex 07/22/2016 Appointment: Rika Bello WPtel: [phone] [phone] (30 min) Complex 07/18/2016 Appointment: Rika Bello WPtel: [phone] [phone] 07/01/2016 Appointment: Lab Draw 06/24/2016 Patient Education: Patient Medication Summary Completed 06/24/2016 Appointment: Rika Bello WPtel: [phone] [phone] ([facility] 2016 Visit Plan: Diabetes [...] Obesity Completed 05/24/2016 Appointment: Rika Bello WPtel: [facility]5 [phone] (30 min) Complex 05/17/2016 Visit Plan: [...] glucose control. 04/19/2016 Appointment: Rika Bello WPtel: [facility]8 [phone] (30 min) Complex 04/19/2016 Patient Education: Patient Medication Summary Completed 04/19/2016 Patient Education: Obesity Completed 04/19/2016 Appointment: Rika Bello WPtel: [facility]5 [phone] (30 min) Complex 04/18/2016 Visit Plan: [...] to allow for greater blood glucose control. LNA-zcmntwhhyp-bm changes in medications at this time. Dysuria-UA negative-needs pelvic exam due to pt c/o vaginal discharge 04/11/2016 Appointment: Rika Bello WPtel: [phone] [phone] [place] (30 min) Complex 04/11/2016 Patient Education: Patient Medication Summary Completed 04/11/2016 Patient Education: Obesity Completed 04/11/2016 Appointment: Rika Bello WPtel: [phone] [phone] [place] (30 min) Complex 04/08/2016 Visit Plan: [...] peripheral edema. 03/11/2016 Appointment: Rika Bello WPtel: [phone] (30 min) [facility] 03/11/2016 Patient Education: Patient Medication Summary [...] use 02/26/2016 Appointment: Rika Bello WPtel: [phone] [phone] [place] (30 min) Complex 02/26/2016 Patient Education: Patient Medication Summary Completed 02/26/2016 Appointment: Rika Bello WPtel: [phone] [place] (30 min) Complex 02/25/2016 Appointment: Rika Belol WPtel: [address] [place], [place] [phone] (30 min) Complex 02/23/2016 Appointment: Lab Draw [...] to mold 02/02/2016 Appointment: Rika Bello WPtel: [address] [place], [place] [phone] (30 min) Complex 02/02/2016 Patient Education: Patient Medication Summary Completed 02/02/2016 Appointment: Tessie Motta WPtel: [address] [place] [address] (15 min) Moderate 01/21/2016 Appointment: Rika Bello WPtel: [address] [place], [place] [phone] (30 min) Complex 01/14/2016 Visit Plan: Hypertension [...] Patient Medication Summary Completed 12/17/2015 Visit Plan: Peqfcmo-pvxwgihve-skrs head injury on 12/05-did not go to ER-patient sent for STAT CT scan of head-schedule appt with Dr Dyer Adrenal insufficiency-patient suddenly stopped prednisone-instructed patient to restart and taper prednisone as directed Rib intt-oxaux-rpxaxe fall-xray ribs 12/08/2015 Appointment: Rika Bello WPtel: [facility]5 [phone] (15 min) Moderate 12/08/2015 Appointment: Rika Bello WPtel: [facility]5 [phone] (30 min) Complex 12/08/2015 Patient Education: Patient Medication Summary Completed 12/08/2015 Care Plan: COMPLETE CBC AUTOMATED LOINC : 89438-2 Pending 12/08/2015 Visit Plan: Hypertension - well [...] pt was given a script for a residential prednisone taper - pt has not started [...] Dr. Mejia 10/27/2015 Appointment: Rika Bello WPtel: [address] [place], [place] [phone] (30 min) Complex 10/27/2015 Patient Education: Patient Medication Summary Completed 10/27/2015 Patient Education: Obesity Completed 10/27/2015 Care Plan: Referral Order SNOMED-CT : 371802641 Pending 10/27/2015 Referral: Matt Pavon HPtel:[phone] Referral Initiated 10/21/2015 Visit Plan: [...] stomach pain. 09/29/2015 Appointment: Rika Bello WPtel: [facility]7 [phone] MCR - Welcome to Medicare visit 09/29/2015 Patient Education: Patient Medication Summary Completed 09/29/2015 Patient Education: Obesity Completed 09/29/2015 Care Plan: Referral Order SNOMED-CT : 931331921 Pending 09/29/2015 Care Plan: BMI Above normal [...] min) Complex 05/05/2015 Appointment: Rika Bello WPtel: [facility]6 [phone] (30 min) Complex 04/27/2015 Visit Plan: [...] Completed 03/03/2015 Appointment: Rika Bello WPtel: [phone] [phone] [place] (30 min) Complex 02/24/2015 Appointment: (30 min) Complex 01/29/2015 Appointment: Tessie Motta WPtel: [phone] [facility] [place] (15 min) Moderate 01/22/2015 Visit Plan: Blister of right lower leg-fluids removed with #27 gauze needle and compression dressing applied-refer to wound care for evaluation and management-patient is at high risk of developing large ulcer due to diabetes, noncompliance and poor hygiene. Rash right leg-start oral abx and bactroban as directed Areah-iyopfsnwhtmf-nhw markie wraps, elevate leg, and again instructed [...] eating out. 01/01/2015 Appointment: Tessie Motta WPtel: [phone] [facility] (15 min) Moderate 01/01/2015 Patient [...] Care Plan: COMPLETE CBC AUTOMATED LOINC : 45424-2 Ordered 11/04/2014 Care Plan: URINALYSIS NONAUTO W/O SCOPE LOINC : 54337-9 Ordered 11/04/2014 Appointment: Follow up 10/07/2014 Visit Plan: Edema - pt has been advised to elevate legs to prevent dependent edema, compression has been recommended to help to naturally decrease peripheral edema. Diuretic use has been discussed and pt has been instructed in appropriate use of such medication as necessary to further attempt to reduce peripheral edema. Gjthuyqaln-kapucbrb-wu change in treatment- continue compression hose-decrease salt/sodium in diet-call if symptoms worsen or do not resolve Uilkvrjng-woaezct-shezejcv nasonex to twice daily as directed 09/08/2014 [...] worsen. 06/12/2014 Appointment: Rika Bello WPtel: [phone] Follow up 06/12/2014 Patient Education: Patient Medication Summary Completed 06/12/2014 Patient Education: .Amazing charts Exercise for Sciatica Completed 06/12/2014 Care Plan: COMPLETE CBC AUTOMATED LOINC : 46951-0 Ordered 06/12/2014 Visit Plan: Cellulitis - continue [...] Completed 05/26/2014 Appointment: Tessie Motta WPtel: [phone] [facility] [place] Lab Draw 04/21/2014 Patient Education: Patient [...] home. 02/13/2014 Appointment: Tessie Motta WPtel: [phone] [facility] Follow up 02/13/2014 Patient Education: Patient Medication [...] daily. 01/27/2014 Appointment: Tessie Motta WPtel: [phone] [facility] Follow up 01/27/2014 Patient Education: Patient Medication Summary Completed 01/27/2014 Appointment: Rika Bello WPtel: [phone] Follow up 01/02/2014 Visit Plan: Open wound of xjv-pzulapyk-setjahiw with dressing changes as directed-call for increase [...] Summary Completed 12/26/2013 Appointment: Tessie Motta WPtel: [facility]5 [facility] Follow up 12/24/2013 Visit Plan: Open wound of right leg-debrided today in the office-instructed on wound care-follow up as directed. Call with any questions, concerns, or worsening symptoms. Culture of wound today in the office-RX for abx sent to patient's pharmacy and instructed on use. Patient verbalized understanding of plan. 12/12/2013 Appointment: Rika Bello WPtel: [facility]7 [phone] Other 12/12/2013 Patient Education: Patient Medication Summary Completed 12/12/2013 Appointment: Tessie Motta WPtel: [facility]4 [facility] Follow up 11/20/2013 Visit Plan: negative ua 11/18/2013 Appointment: Tessie Motta WPtel: [facility]2 [facility] Lab Draw 11/18/2013 Patient Education: Patient Medication [...] Completed 11/14/2013 Visit Plan: Open wound right kbd-ndwghq-xtli if opens up Edema - pt has been advised to elevate legs to prevent dependent edema, compression has been recommended to help to naturally decrease peripheral edema. Diuretic use has been discussed and pt has been instructed in appropriate use of such medication as necessary to further attempt to reduce peripheral edema. 10/21/2013 Appointment: Rika Bello WPtel: [address] [place], [place] [phone] [place] [address] Follow up 10/21/2013 Patient Education: Patient Medication Summary Completed 10/21/2013 Appointment: Rika Bello WPtel: [address] [place], [place] [phone] [place] [address] Follow up 10/17/2013 Appointment: Tessie Motta WPtel: [address] [place] [address] Follow up 10/10/2013 Visit Plan: Hypertension - [...] for pain. 10/03/2013 Appointment: Rika Bello WPtel: [address] [place], [place] [phone] [place] [address] Follow up 10/03/2013 Patient Education: Patient Medication [...] plan. 09/23/2013 Appointment: Tessie Motta WPtel: [phone] [facility] Nurse Visit 09/23/2013 Patient Education: [...] 2 WEEKS. 09/20/2013 Appointment: Rika Bello WPtel: [facility]5 [phone] Follow up 09/20/2013 Patient Education: Patient Medication Summary Completed 09/20/2013 Patient Education: Hypertension Completed 09/20/2013 Appointment: Tessie Motta WPtel: [facility]5 [facility] [place] Follow up 09/16/2013 Visit Plan: Edema [...] verbalized understanding. 09/10/2013 Appointment: Rika Bello WPtel: [facility] Other 09/10/2013 Patient Education: Patient Medication Summary Completed 09/10/2013 Appointment: Rika Bello WPtel: [address] [place] [address] Follow up 09/02/2013 Visit Plan: Diabetes Mellitus [...] peripheral edema. 08/19/2013 Appointment: Rika Bello WPtel: [facility]5 [facility] [place] [address] Other 08/19/2013 Patient Education: Patient Medication Summary [...] as scheduled 08/01/2013 Appointment: Rika Bello WPtel: [address] [place], [place] [phone] Follow up 08/01/2013 Patient Education: Patient Medication Summary Completed 08/01/2013 Appointment: Rika Bello WPtel: [address] [place], [place] [phone] [place] Follow up 07/25/2013 Appointment: Tessie Motta WPtel: [address] [place], [place] [phone] [place] Follow up 07/25/2013 Visit Plan: Bister of foot-dressing changes discussed with patient and instructed her to keep her foot clean and dry-STOP WEARING FLIP FLOPS as they are causing friction over blistered area. Keep follow up appointment as scheduled. Call for redness, drainage or other s/s of infection. 07/19/2013 Appointment: Rika Bello WPtel: [address] [place], [place] [phone] [place] [address] Other 07/19/2013 Patient Education: Patient Medication Summary [...] peripheral edema. 07/15/2013 Appointment: Rika Bello WPtel: [address] [place] [address] Other 07/15/2013 Patient Education: Patient Medication Summary Completed 07/15/2013 Patient Education: Hypertension Completed 07/15/2013 Appointment: Rika Bello WPtel: [address] [place] [address] Follow up 07/01/2013 Appointment: Rika Bello WPtel: [address] [place] [address] Lab Draw 06/28/2013 Patient Education: Patient Medication [...] 900mg tid. 06/27/2013 Appointment: Tessie Motta WPtel: [facility]1 [address] Other 06/27/2013 Patient Education: Patient Medication Summary Completed 06/27/2013 Appointment: Tessie Motta WPtel: [phone] [facility] [place] Other 06/24/2013 Visit Plan: Diabetes Mellitus [...] AFTERNOON. 06/10/2013 Appointment: Tessie Motta WPtel: [phone] [facility] Follow up 06/10/2013 Patient Education: Patient Medication Summary Completed 06/10/2013 Appointment: Tessie Motta WPtel: [phone] [facility] [place] Follow up 06/06/2013 Visit Plan: Sinusitis [...] acutely worsen. 05/07/2013 Appointment: Tessie Motta WPtel: [address] [place], [place] [phone] Follow up 05/07/2013 Patient Education: Patient Medication Summary Completed 05/07/2013 Appointment: Tessie Motta WPtel: [address] [place], [place] [phone] Follow up 04/30/2013 Visit Plan: Edema - [...] acute changes. 04/16/2013 Appointment: Tessie Motta WPtel: [facility]3 [facility] Follow up 04/16/2013 Patient Education: Patient Medication Summary Completed 04/16/2013 Appointment: Tessie Motta WPtel: [facility]1 [facility] Follow up 04/04/2013 Visit Plan: Lumbago-continue [...] peripheral edema. 03/21/2013 Appointment: Rika Bello WPtel: [facility]5 [phone] Follow up 03/21/2013 Patient Education: Patient Medication Summary Completed 03/21/2013 Appointment: Tessie Motta WPtel: [facility]5 [facility] Follow up 03/20/2013 Appointment: Tessie Motta WPtel: [address] [place], [place] [phone] Follow up 03/05/2013 Visit Plan: Edema-significantly improved- [...] less controlled. 02/12/2013 Appointment: Rika Bello WPtel: [facility]5 [phone] [facility] follow up 02/12/2013 Patient Education: Patient [...] Dyspnea - recommended pt to see new business continuity manager [facility] for further evaluation and work-up. 02/04/2013 Appointment: Tessie Motta WPtel: [facility]5 [facility] Follow up 02/04/2013 Patient Education: Patient Medication [...] not improve. 01/17/2013 Appointment: Rika Bello WPtel: [facility]5 [phone] Follow up 01/17/2013 Patient Education: Patient Medication Summary Completed 01/17/2013 Patient Education: Hypertension Completed 01/17/2013 Appointment: Tessie Motta WPtel: [facility]5 [facility] Follow up 01/16/2013 Appointment: Tessie Motta WPtel: [address] [place] [address] [place] Follow up 01/10/2013 Appointment: Rika Bello WPtel: [facility]5 [phone] [place] Lab Draw 01/01/2013 Patient Education: [...] Hypothyroidism-check labs 12/31/2012 Appointment: Rika Bello WPtel: [facility]3 [facility] [place] [address] Follow up 12/31/2012 Appointment: Rika Bello WPtel: [phone] [phone] Sick 12/31/2012 Patient Education: Patient Medication [...] labs. 12/20/2012 Appointment: Rika Bello WPtel: [phone] [phone] Sick 12/20/2012 Patient Education: Patient Medication Summary Completed 12/20/2012 Patient Education: Hypertension Completed 12/20/2012 Appointment: Tessie Motta WPtel: [facility]5 [facility] Lab Draw 11/05/2012 Patient Education: Patient Medication Summary Completed 11/05/2012 Visit Plan: Bronchitis - acute case of bronchitis identified. Pt has been given antibiotics, breathing treatments as appropriate, and pt has been instructed to call if symptoms are not improved, or if symptoms acutely worsen. 10/29/2012 Appointment: Tessie Motta WPtel: [address] [place], [place] [phone] Sick 10/29/2012 Patient Education: Patient Medication Summary Completed 10/29/2012 Visit Plan: Joint Injection-left SI joint - Pt was given post - injection instructions. The pt has been advised to use antiinflammatories post injection today, ice to the injected site, call if redness, warmth, or increased pain occurs at the site of injection. 09/21/2012 Appointment: Rika Bello WPtel: [facility]5 [phone] Follow up 09/21/2012 Patient Education: Patient [...] control. 09/06/2012 Appointment: Tessie Motta WPtel: [phone] [facility] Follow up 09/06/2012 Patient Education: [...] readings are starting to become less controlled. Eyglhdvm-rtokkqwh-avnmgwzr probiotic-continue to hold metformin and repeat labs before appt in 2 weeks. Call for abd pain, worsening diarrhea, or other concerns. 08/23/2012 Appointment: Tessie Motta WPtel: [phone] [facility] Follow up 08/23/2012 Patient Education: [...] PLAN. 08/13/2012 Appointment: Rika Bello WPtel: 1015 [phone] [place] Follow up 08/13/2012 Patient Education: [...] acute concerns. 08/07/2012 Appointment: Rika Bello WPtel: [facility]5 [facility] [place] Other 08/07/2012 Patient Education: Patient Medication Summary Completed 08/07/2012 Patient Education: Hypertension Completed 08/07/2012 Visit Plan: UA-sent for culture 07/19/2012 Appointment: Rika Bello WPtel: [phone] [place] Lab Draw 07/19/2012 Patient Education: [...] directed 07/06/2012 Appointment: Rika Bello WPtel: 1015 [phone] Sick 07/06/2012 Patient Education: Patient Medication [...] today 06/07/2012 Appointment: Tessie Motta WPtel: 1015 [facility] Follow up 06/07/2012 Appointment: Tessie Motta WPtel: 1015 [facility] Follow up 06/07/2012 Patient Education: Patient Medication [...] days. 05/28/2012 Appointment: Rika Bello WPtel: 1015 [phone] Follow up 05/28/2012 Patient Education: Patient [...] edema. 05/17/2012 Appointment: Rika Bello WPtel: 1012 [phone] ER Follow UP 05/17/2012 Patient Education: [...] the office 05/02/2012 Appointment: Tessie Motta WPtel: [facility]5 [facility] Follow up 05/02/2012 Patient Education: Patient Medication Summary Completed 05/02/2012 Patient Education: Hypertension Completed 05/02/2012 Appointment: Tessie Motta WPtel: [facility]5 [facility] Follow up 04/25/2012 Visit Plan: Sinusitis - [...] concerns. 04/10/2012 Appointment: Rika Bello [facility]Ptel: [phone] [place] Follow up 04/10/2012 Patient Education: Patient Medication [...] I&D on Monday02/27/2012 Appointment: Rika Bello WPtel: [facility] [address] Follow up 02/27/2012 Patient Education: Patient [...] to thighs. 02/15/2012 Appointment: Rika Bello WPtel: [facility]3 [phone] [place] Follow up 02/15/2012 Patient Education: Patient [...] toes to thighs. RX sent to patient's [facility]. Chest xray at the hospital [...] urine. 02/01/2012 Appointment: Rika Bello WPtel: [phone] [phone] [place] [address] Other 02/01/2012 Patient Education: Patient Medication Summary [...] buttocks 12/14/2011 Appointment: Tessie Motta WPtel: [phone] [facility] [place] Other 12/14/2011 Patient Education: Patient Medication Summary Completed 12/14/2011 Appointment: Tessie Motta WPtel: [phone] [facility] Follow up 12/08/2011 Visit Plan: N/V/D [...] less controlled. 11/30/2011 Appointment: Rika Bello WPtel: [address] [place], [place] [id number] Other 11/30/2011 Patient Education: Patient Medication Summary [...] pain. 11/17/2011 Appointment: Tessie Motta [facility]Ptel: [phone] Other 11/17/2011 Patient Education: Patient [...] - uncontrolled - will consult her primary tool tender for assistance with control her her heart rate. Ulcer of toe - continue with topical antibiotics as previously directed, return to clinic as previously directed, call for acute change in symptoms, worsening redness, warmth, discharge. 11/03/2011 Appointment: Tessie Motta WPtel: [phone] Other 11/03/2011 Patient Education: Patient [...] symptoms, worsening redness, warmth, discharge. 10/24/2011 Appointment: KaliaTessie WPtel: [phone] [place] Other 10/24/2011 Patient Education: Patient Medication [...] lymphoma. 09/26/2011 Appointment: Rika Bello WPtel: [phone] [facility] [place] Other 09/26/2011 Patient Education: Patient [...] Hypertension Completed 2011 Appointment: Tessie Motta WPtel: [address] [place] [address] Other 09/05/2011 Visit Plan: Sinusitis - Pt [...] the medication. 09/01/2011 Appointment: Tessie Motta WPtel: [facility] Other 09/01/2011 Patient Education: Patient Medication Summary Completed 09/01/2011 Visit Plan: Sinusitis - continue with ciprofloxacin and start on corcidin HBP. Anxiety - start the xanax 0.5mg 1/2 pill twice daily. 08/15/2011 Appointment: Tessie Motta WPtel: [facility] Other 08/15/2011 Appointment: Tessie Motta WPtel: [address] [place] [address] Other 08/15/2011 Patient Education: Patient Medication Summary [...] Plan for demerol injection today at [facility]. 08/09/2011 Appointment: Rika Bello WPtel: [address] [place] [address] Other 08/09/2011 Patient Education: Patient Medication Summary [...] not resolve 08/01/2011 Appointment: Rika Bello WPtel: [address] [place] [address] Other 08/01/2011 Patient Education: Patient Medication Summary Completed 08/01/2011 Appointment: Rika Bello WPtel: [address] [place] [address] [place] Other 07/26/2011 Appointment: Tessie Motta WPtel: [address] [place], [place] [address] Other 07/18/2011 Visit Plan: Diabetes Mellitus [...] management sparingly. 06/20/2011 Appointment: Tessie Motta WPtel: [facility]3 [place] [address] Other 06/20/2011 Patient Education: Patient Medication Summary [...] month. 04/18/2011 Appointment: Tessie Motta WPtel: [phone] [facility]66[facility] Other 04/18/2011 Patient Education: Patient Medication Summary Completed 04/18/2011 Patient Education: High Blood Pressure: Essential Hypertension Completed 2010 Appointment: Tessie Motta WPtel: [phone] [facility]66[facility] Other 04/12/2011 Appointment: Tessie Motta WPtel: [phone] Other 02/16/2011 Referral: Matt Pavon HPtel:[phone] Referral Initiated Referral: Yareli Raines Referral [...] toenail - will refer to Dr. Mejia FOR CHOLESTEROL - THE NEW DOSE OF [...] based on previous levels of control. INCREASE LEVEMIR TO 10 UNITS TWICE DAILY [...] further attempt to reduce peripheral edema. . Odt-fczbdlytcd-hu changes Anemia-check cbc today Dental infection-on clindamycin [...] nebulizer and supplies due to mold . Cellulitis - continue with oral antibiotics as previously directed, return to clinic as previously directed, call for acute change in symptoms, worsening redness, warmth, discharge. Xuhffkwn-axacvssbrwvh-rnqxi labs today-patient has been given orders multiple [...] Trigger point injection to left buttocks INCREASE WATER INTAKE AND PROTEIN INTAKE CUT [...] change in blood pressure readings at home. LD-ioldbfwnyxyn-mbycdcvhm strict diet and exercise with patient Low lrvaoggly-lnzrjcge-nnlootmi to monitor Abd xbjf-kxbtpbhp-uj changes . Diabetes Mellitus - controlled - [...] gabapentin from 600mg tid to 900mg tid. Pt has been instructed to stop eating [...] readings are starting to become less controlled. Zezkiuka-osqqdqmn-falcycnm probiotic-continue to hold metformin and repeat labs before appt in 2 weeks. Call for abd pain, worsening diarrhea, or other concerns. . Cellulitis - culture of wound [...] other acute changes, questions, or concerns. . Hypertension - well controlled - [...] leg-start oral abx and bactroban as directed Rgqgd-fbuxptgnuflf-fjd markie wraps, elevate leg, and again instructed [...] as needed #60 with next refill . Bronchitis - will check labs, if [...] if symptoms do not show improvement. . Joint Injection-left SI joint - Pt [...] allow for greater blood glucose control. . Diabetes Mellitus - controlled - [...] symptom management sparingly. . Open wound right bue-rskgyb-dsnk if opens up Edema - pt has been advised to elevate legs to prevent dependent edema, compression has been recommended to help to naturally decrease peripheral edema. Diuretic use has been discussed and pt has been instructed in appropriate use of such medication as necessary to further attempt to reduce peripheral edema. . Rcpyvaw-euelztvki-isxy head injury on 12/05-did not go to ER-patient sent for STAT CT scan of head-schedule appt with Dr Dyer Adrenal insufficiency-patient suddenly stopped prednisone-instructed patient to restart and taper prednisone as directed Rib smgi-jfvix-hnlqwn fall-xray ribs START CHECKING BLOOD SUGARS!!!! BRING [...] to allow for greater blood glucose control. PAZ-kjogyaxbjg-nc changes in medications at this time. Dysuria-UA [...] - uncontrolled - will consult her primary tool tender for assistance with control her her heart [...] with results.Patient and verbalized understanding of plan. EDW-udhclcbpolf-yqvev labs-monitor blood pressure and heart rate closely- recommend ER if symptoms do not improve. . Patient presented with acute symptoms of stroke. Accompanied to ER for emergent evaluation. check UA . Dysuria-urinary incontinence-culture urine HTN-elevated today-monitor at home -follow up with tool tender . Open wound of liq-xjyhyahl-csamsrpo with dressing changes as directed-call for increase [...] for diflucan-call if symptoms do not resolve [place] balm over the counter for the knee. [...] to further attempt to reduce peripheral edema. Uktbxmzsrr-mivvggwh-ih change in treatment-continue compression hose-decrease salt/sodium in diet-call if symptoms worsen or do not resolve Xejhyrmni-qhvfcee-mtzyozwa nasonex to twice daily as directed pt [...] weeks. Increase victoza to 1.8 units daily. Labs today- CBC, CMP, HgbA1C Dr. Shelley [...] for possible injections Rash-under breasts-refill nystatin . Chronic sinusitis-rx for gentamicin nasal spray [...] pt was given a script for a residential prednisone taper - pt has not started [...] will closely monitor pt. . UA negative . Patient presented with acute symptoms of [...] DM-check labs today Thrush-RX for nystatin . Sinusitis - Pt has acute infection [...] allergy spray. Low back pain-increased since fall /-xray lumbar spine Right knee pain/swelling-fell 5/3-xray knee-recommend [...] use at home-appt with Dr Odonnell tomorrow Aftyrone-check digoxin level-patient just finished zpack Diarrhea-continue probiotics-check [...] every 6 hours as needed for pain. STOP THE PROBIOTICS START GAS X DULCOLAX [...] readings are starting to become less controlled. INCREASE LEVEMIR TO 25 UNITS IN THE [...] to allow for greater blood glucose control. Nasal spray- use twice daily, one spray [...] is to call for acute concerns. . Edema - pt has been advised [...] Q HS RESCHEDULE APPT WITH DR YANNA HoGbvnzgnyk-qtuvvufrd-xd for bactroban ointment provided and instructed on use AME-dluvsbkusm-je change in medications Mildly elevated liver enzymes-discussed [...] Dyspnea - recommended pt to see new business continuity manager [facility] for further evaluation and work-up. refer to [...] not improved, or if symptoms acutely worsen. Monitor your blood pressure at home and [...] abx-Dr. Mejia to perform I&D on Monday I sent a prescription for lasix and potassium to [facility]. Take 2 TABLETS of LASIX and 2 [...] toes to thighs. RX sent to patient's [facility]. Chest xray at the hospital [...] control. Yeast infection -rx for nystatin powder SIOE-wddqefoad-wgpdxd vrnmphpyf-zqft-hekvsgq is oxygen dependent due to severely compromised [...] control. Yeast infection -rx for nystatin powder NJCB-gvlpymgjg-huramw bplgsfztt-bjvr-levkshm is oxygen dependent due to severely compromised [...] control. Yeast infection -rx for nystatin powder MYBI-fpkjssopo-xbnkxr fgrqornwl-khaw-dlmzarq is oxygen dependent due to severely compromised [...] and understands the consequences of over-medication. . Chronic sinus infections -congestion -will order [...] of insulin -patient and verbalized understanding. . Generalized abdominal pain-discussed with Dr Motta-CT [...] and return Monday for removal of IPRO Bbpvmwp-vvnzagqwat-ua changes in medications-recommend counseling-patient refuses Weakness-patient is [...] your appt with her -she is a digital media specialist . Diabetes Mellitus - ucontrolled- I [...] to become less controlled. Low potassium-check labs YHY-vzjmulodqt-xq changes Afib-check digoxin level with labs Abdominal pain-refill levsin for prn use -call if pain uncontrolled DR Yareli Raines-you need to reschedule your appt with her -she is a digital media specialist . Diabetes Mellitus - ucontrolled- I [...] to become less controlled. Low potassium-check labs PTJ-nexdxzkyit-hg changes Afib-check digoxin level with labs Abdominal [...] use compression socks from toes to thighs. . Continuous glucose monitor placed - pt [...] PAIN MANAGEMENT FOR INJECTIONS STOP BY [employer] FOR NEW CPAP SUPPLIES . Hypertension - [...] every night DM-check Hgb A1C Hypothyroidism-check level Uiegwnh-zmibrxsqhh-cda well controlled-increase cymbalta-recommend counseling . Diabetes Mellitus [...] she needs to...RESCHEDULE APPT WITH DR RAINES ICW-vpxmofspll-fx change in medications CPAP NEBULIZER CHECK UA [...] is so tired Tachycardia-follow up with Dr Manisha GRANGER sinusitis - discussed expected course with the [...]
--- OUTSIDE RECORDS SUMMARY | 2018-06-04 15:41 | XMS REPORT | CCD ---
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 Unknown Has never used illegal drugs 02/11/2011 Allergies, Adverse Reactions, Alerts Substance Reaction Codes Entered Date Inactivated Date Status CODEINE RxNorm: 2670 02/11/2011 No Inactive Date Active * NO KNOWN FOOD ALLERGIES Unknown 02/01/2012 No Inactive Date Active cefdinir RxNorm: 95421 08/07/2012 No Inactive Date Active PENICILLINS Unknown [...] Date Active promethazine 25 mg tablet RxNorm: 988902 Tablet(s) 1 Tablet(s) PO Q6 PRN TAKE NEEDED ONLY!!! 04/27/2018 No Stop Date Active digoxin 125 mcg tablet RxNorm: 812578 TAKE 1 TABLET BY MOUTH ONCE DAILY 04/23/2018 No Stop Date Active Lasix 40 mg tablet RxNorm: TAKE 1 TABLET BY MOUTH TWICE DAILY 04/19/2018 No Stop Date Active Vitamin D2 50,000 unit capsule RxNorm: 1585797 1 Capsule(s) PO QW 04/17/2018 06/15/2018 Active Tessalon Perles 100 mg capsule RxNorm: 367148 Capsule(s) Capsule(s) 2 Capsule(s) PO TID as needed 04/17/2018 No Stop Date Active Xanax 0.5 mg tablet RxNorm: 179515 1 Tablet(s) BID as needed 04/09/2018 05/08/2018 Active Percocet 10 mg-325 mg tablet RxNorm: 2562063 1-2 Tablet(s) PO Q6 PRN 04/05/2018 04/19/2018 Inactive colestipol 1 gram tablet RxNorm: 2449169 TAKE ONE TABLET BY MOUTH TWICE DAILY 03/30/2018 No Stop Date Active nystatin 100,000 unit/mL oral suspension RxNorm: 662892 Unit(s) 5 Milliliter(s) PO QID swish and swallow 03/21/20182017 Inactive Tessalon Perles 100 mg capsule RxNorm: 865464 Capsule(s) Capsule(s) 2 Capsule(s) PO TID as needed 03/21/2018 04/16/2018 Inactive Xanax 0.5 mg tablet RxNorm: 840678 Tablet(s) BID as needed 04/09/2018 Inactive Slow Fe 47.5 mg iron tablet,extended release RxNorm: 1 Tablet(s) PO every other day 03/12/2018 04/10/2018 Inactive Percocet 10 mg-325 mg tablet RxNorm: 0617718 1-2 Tablet(s) PO Q6 PRN 03/12/2018 03/26/2018 Inactive Slow Fe 47.5 mg iron tablet,extended release RxNorm: 1 Tablet(s) PO 3 x week 02/28/2018 03/11/2018 Inactive promethazine 25 mg tablet RxNorm: 198533 Tablet(s) 1 Tablet(s) PO Q6 PRN TAKE NEEDED ONLY!!! 02/21/2018 04/26/2018 Inactive gabapentin 600 mg tablet RxNorm: 725847 Tablet(s) TAKE ONE & ONE-HALF TABLETS BY MOUTH THREE TIMES DAILY 02/20/20182018 Active Cymbalta 60 mg capsule,delayed release RxNorm: 614455 1 Capsule(s) PO daily take with 30mg tablet 02/20/2018 08/18/2018 Active Cymbalta 30 mg capsule,delayed release RxNorm: 074005 Capsule(s) TAKE ONE CAPSULE BY MOUTH ONCE DAILY - TAKE WITH THE 60 MG DOSE FOR A TOTAL OF 90 MG 02/20/2018 08/18/2018 Active Vitamin D2 50,000 unit capsule RxNorm: 8780312 1 Capsule(s) PO QW 02/20/2018 02/19/2018 Inactive Vitamin D2 50,000 unit capsule RxNorm: 2935815 1 Capsule(s) PO QW 02/20/2018 04/16/2018 Inactive mupirocin 2 % topical ointment RxNorm: 861299 APPLY TO SORE IN BELLY BUTTON TWICE DAILY 02/15/2018 No Stop Date Active Percocet 10 mg-325 mg tablet RxNorm: 2927247 1-2 Tablet(s) PO Q6 PRN 02/14/2018 02/28/2018 Inactive Jerry Marley U-300 Insulin 300 unit/mL (1.5 mL) subcutaneous pen RxNorm: 3096225 40 Unit(s) SQ BID per dr raines 02/07/2018 03/08/2018 Inactive nystatin 100,000 unit/mL oral suspension RxNorm: 363725 5 Milliliter(s) PO QID swish and swallow 02/02/2018 02/11/2018 Inactive mupirocin 2 % topical ointment RxNorm: 379171 1 Application TOP BID 01/30/2018 02/08/2018 Inactive Tessalon Perles 100 mg capsule RxNorm: 533000 Capsule(s) 2 Capsule(s) PO TID as needed 01/23/2018 03/20/2018 Inactive Xanax 0.5 mg tablet RxNorm: 256436 Tablet(s) TAKE ONE TABLET BY MOUTH THREE TIMES DAILY NEEDED 01/17/20182017 Inactive ropinirole 1 mg tablet RxNorm: 727203 1 Tablet(s) PO BID 201705/10/2018 Active digoxin 125 mcg tablet RxNorm: 509751 1 Tablet(s) PO daily 04/22/2018 Inactive Percocet 10 mg-325 mg tablet RxNorm: 8913400 1-2 Tablet(s) PO Q6 PRN 01/04/2018 01/18/2018 Inactive Percocet 10 mg-325 mg tablet RxNorm: 8182699 1-2 Tablet(s) PO Q6 PRN 01/02/2018 01/03/2018 Inactive promethazine 25 mg tablet RxNorm: 466640 Tablet(s) 1 Tablet(s) PO Q6 PRN TAKE NEEDED ONLY!!! 01/02/2018 02/20/2018 Inactive pantoprazole 40 mg tablet,delayed release RxNorm: 427024 TAKE 1 TABLET BY MOUTH ONCE DAILY 12/25/2017 No Stop Date Active mupirocin 2 % topical ointment RxNorm: 460852 1 Application TOP BID 12/22/2017 12/31/2017 Inactive fluconazole 150 mg tablet RxNorm: 577004 1 Tablet(s) PO every other day x 3 doses 12/14/2017 12/23/2017 Inactive Percocet 10 mg-325 mg tablet RxNorm: 8290869 1-2 Tablet(s) PO Q6 PRN 12/13/2017 12/27/2017 Inactive hyoscyamine 0.125 mg sublingual tablet RxNorm: 6550063 Tablet(s) 1 Tablet(s) SL TID as needed 12/13/2017 04/11/2018 Inactive nystatin 100,000 unit/gram topical powder RxNorm: 642015 APPLY POWDER TOPICALLY 4 TIMES DAILY 12/11/2017 No Stop Date Active Xanax 0.5 mg tablet RxNorm: 192437 Tablet(s) TAKE ONE TABLET BY MOUTH THREE TIMES DAILY NEEDED 12/06/20172017 Inactive nitrofurantoin 50 mg capsule RxNorm: 802574 1 Capsule(s) PO BID 12/01/2017 11/30/2017 Inactive take probiotic BID x 7 days nitrofurantoin 50 mg capsule RxNorm: 236309 1 Capsule(s) PO BID 12/01/2017 12/07/2017 Inactive take probiotic BID x 7 days mupirocin 2 % topical ointment RxNorm: 907519 1 Application TOP BID 11/27/2017 12/06/2017 Inactive Tessalon Perles 100 mg capsule RxNorm: 431297 Capsule(s) 2 Capsule(s) PO TID as needed 11/21/2017 01/22/2018 Inactive nystatin 100,000 unit/mL oral suspension RxNorm: 848234 5 Milliliter(s) PO QID swish and swallow 11/17/2017 11/26/2017 Inactive nystatin 100,000 unit/mL oral suspension RxNorm: 154574 5 Milliliter(s) PO QID swish and swallow 11/17/2017 11/16/2017 Inactive Toprol XL 100 mg tablet,extended release RxNorm: 298480 TAKE ONE TABLET BY MOUTH TWICE DAILY 11/15/2017 No Stop Date Active ropinirole 1 mg tablet RxNorm: 556033 Tablet(s) BID 11/14/2017 01/10/2018 Inactive Diflucan 150 mg tablet RxNorm: 040706 Tablet(s) every other day 1 Tablet(s) PO every other day 11/14/2017 11/16/2017 Inactive Percocet 10 mg-325 mg tablet RxNorm: 7229840 1-2 Tablet(s) PO Q6 PRN 11/09/2017 11/23/2017 Inactive Flonase Allergy Relief 50 mcg/actuation nasal spray, suspension RxNorm: 6630333 2 [place] NASAL daily 11/06/20172017 Inactive cyclobenzaprine 10 mg tablet RxNorm: 149402 Tablet(s) TABLET(S) 1 TABLET(S) PO NEEDED TAKE 1 TABLET BY MOUTH EVERY 8 HOURS NEEDED 2017 No Stop Date Active Cymbalta 30 mg capsule,delayed release RxNorm: 975919 TAKE ONE CAPSULE BY MOUTH ONCE DAILY - TAKE WITH THE 60 MG DOSE FOR A TOTAL OF 90 MG 02/19/2018 Inactive Lantus Solostar U-100 Insulin 100 unit/mL (3 mL) subcutaneous pen RxNorm: 959536 Unit(s) SQ 35 units QAM and 55 units QHS Unit(s) SQ 10/27/2017 02/07/2018 Inactive Wants insulin pens Percocet 10 mg-325 mg tablet RxNorm: 4273759 1-2 Tablet(s) PO Q6 PRN 10/27/2017 11/08/2017 Inactive promethazine 25 mg tablet RxNorm: 792306 Tablet(s) 1 Tablet(s) PO Q6 PRN TAKE NEEDED ONLY!!! 10/27/2017 01/01/2018 Inactive Xanax 0.5 mg tablet RxNorm: 993354 Tablet(s) TAKE ONE TABLET BY MOUTH THREE TIMES DAILY 10/20/2017 04/08/2018 Inactive Tessalon Perles 100 mg capsule RxNorm: 288200 Capsule(s) 2 Capsule(s) PO TID as needed 10/19/2017 11/20/2017 Inactive Diflucan 150 mg tablet RxNorm: 665131 1 Tablet(s) PO every other day 10/15/2017 11/13/2017 Inactive Percocet 10 mg-325 mg tablet RxNorm: 4000047 1-2 Tablet(s) PO Q6 PRN 10/06/2017 10/20/2017 Inactive pantoprazole 40 mg tablet,delayed release RxNorm: 037082 1 Tablet(s) PO BID 10/03/2017 03/31/2018 Inactive Cymbalta 60 mg capsule,delayed release RxNorm: 546792 TAKE ONE CAPSULE BY MOUTH ONCE DAILY 09/21/2017 02/19/2018 Inactive Diflucan 150 mg tablet RxNorm: 923502 1 Tablet(s) PO every other day 09/15/2017 09/19/2017 Inactive hyoscyamine 0.125 mg sublingual tablet RxNorm: 2707309 1 Tablet(s) SL TID as needed 09/08/2017 12/12/2017 Inactive Lantus Solostar U-100 Insulin 100 unit/mL (3 mL) subcutaneous pen RxNorm: 536562 Unit(s) SQ 35 units QAM and 55 units QHS Unit(s) SQ 09/06/2017 09/20/2017 Inactive Wants insulin pens Lasix 40 mg tablet RxNorm: 823917 TAKE ONE TABLET BY MOUTH TWICE DAILY 08/25/2017 04/18/2018 Inactive ropinirole 1 mg tablet RxNorm: 808231 TAKE ONE TABLET BY MOUTH AT BEDTIME 08/25/2017 11/13/2017 Inactive Lantus U-100 Insulin 100 unit/mL subcutaneous solution RxNorm: 065560 35 units QAM and 55 units QHS Unit(s) SQ 08/21/2017 09/05/2017 Inactive Tessalon Perles 100 mg capsule RxNorm: 730280 Capsule(s) 2 Capsule(s) PO TID as needed 08/18/2017 10/18/2017 Inactive Percocet 10 mg-325 mg tablet RxNorm: 5174608 1-2 Tablet(s) PO Q6 PRN 08/16/2017 08/30/2017 Inactive pantoprazole 40 mg tablet,delayed release RxNorm: 224318 TAKE ONE TABLET BY MOUTH TWICE DAILY 08/14/2017 08/13/2017 Inactive pantoprazole 40 mg tablet,delayed release RxNorm: 534520 1 Tablet(s) PO daily 08/14/2017 10/02/2017 Inactive promethazine 25 mg tablet RxNorm: 623552 Tablet(s) 1 Tablet(s) PO Q6 PRN TAKE NEEDED ONLY!!! 08/11/2017 10/26/2017 Inactive omeprazole 20 mg capsule,delayed release RxNorm: 702016 1 Capsule(s) PO daily TAKE 1 CAPSULE BY MOUTH ONCE DAILY 08/07/2017 10/26/2017 Inactive nystatin 100,000 unit/mL oral suspension RxNorm: 211647 5 Milliliter(s) PO QID swish and swallow 08/07/2017 08/16/2017 Inactive mupirocin 2 % topical ointment RxNorm: 801032 APPLY TO SORE IN BELLY BUTTON TWICE DAILY 08/07/2017 02/14/2018 Inactive omeprazole 20 mg capsule,delayed release RxNorm: 443734 1 Capsule(s) PO BID TAKE 1 CAPSULE BY MOUTH TWICE DAILY 08/03/2017 08/06/2017 Inactive Diflucan 150 mg tablet RxNorm: 730295 1 Tablet(s) PO daily 08/05/2017 Inactive hyoscyamine 0.125 mg sublingual tablet RxNorm: 0213266 1 Tablet(s) SL TID as needed 08/03/2017 09/01/2017 Inactive gentamicin 0.3 % eye drops RxNorm: 005935 2 Drop(s) ophthalmic (eye) TID 08/03/2017 08/09/2017 Inactive Levaquin 500 mg tablet RxNorm: 459426 1 Tablet(s) PO every other day x3 doses 07/27/2017 08/02/2017 Inactive gentamicin 0.3 % eye drops RxNorm: 214694 2 Drop(s) ophthalmic (eye) TID 07/27/2017 08/02/2017 Inactive dicyclomine 10 mg capsule RxNorm: 407410 1 Capsule(s) PO TID 08/02/2017 Inactive Levaquin 500 mg tablet RxNorm: 675548 1 Tablet(s) PO daily 12/201707/26/2017 Inactive Lantus U-100 Insulin 100 unit/mL subcutaneous solution RxNorm: 000430 INJECT 35 UNITS SUBCUTANEOUSLY IN THE MORNING AND 55 UNITS AT BEDTIME 07/24/2017 09/05/2017 Inactive Tessalon Perles 100 mg capsule RxNorm: 361429 2 Capsule(s) PO TID as needed 07/24/2017 08/17/2017 Inactive Percocet 10 mg-325 mg tablet RxNorm: 5127365 1-2 Tablet(s) PO Q6 PRN 07/21/2017 08/04/2017 Inactive promethazine 25 mg tablet RxNorm: 876583 1 Tablet(s) PO Q6 PRN 1 Tablet(s) PO Q6 PRN 07/19/2017 07/26/2017 Inactive Cartia XT 240 mg capsule,extended release RxNorm: 683457 1 Capsule(s) PO daily 06/27/2017 06/21/2018 Active potassium chloride ER 20 mEq tablet,extended release RxNorm: 369289 Tablet(s) TAKE ONE TABLET BY MOUTH ONCE DAILY 06/21/2017 No Stop Date Active Lantus U-100 Insulin 100 unit/mL subcutaneous solution RxNorm: 766995 35 units QAM and 55 units QHS Unit(s) SQ 06/21/2017 07/20/2017 Inactive Please provide 30 day supply Percocet 10 mg-325 mg tablet RxNorm: 5477694 1-2 Tablet(s) PO Q6 PRN 06/21/2017 07/05/2017 Inactive Cartia XT 180 mg capsule,extended release RxNorm: 343136 Capsule(s) BID 06/21/2017 06/26/2017 Inactive Xanax 0.5 mg tablet RxNorm: 436400 Tablet(s) TAKE ONE TABLET BY MOUTH THREE TIMES DAILY 06/21/2017 08/19/2017 Inactive digoxin 125 mcg tablet RxNorm: 870376 1 Tablet(s) PO daily 10/18/2017 Inactive gabapentin 600 mg tablet RxNorm: 452272 Tablet(s) TAKE ONE & ONE-HALF TABLETS BY MOUTH THREE TIMES DAILY 06/21/20172017 Inactive dicyclomine 10 mg capsule RxNorm: 995400 1 Capsule(s) PO TID 07/26/2017 Inactive Lantus U-100 Insulin 100 unit/mL subcutaneous solution RxNorm: 849460 35 units QAM and 55 units QHS Unit(s) SQ 06/13/2017 06/20/2017 Inactive Please provide 30 day supply potassium chloride ER 20 mEq tablet,extended release RxNorm: 290105 TAKE ONE TABLET BY MOUTH ONCE DAILY 06/02/2017 Inactive cyclobenzaprine 10 mg tablet RxNorm: 530706 Tablet(s) TABLET(S) 1 TABLET(S) PO NEEDED TAKE 1 TABLET BY MOUTH EVERY 8 HOURS NEEDED 201711/02/2017 Inactive Tessalon Perles 100 mg capsule RxNorm: 332172 2 Capsule(s) PO TID as needed 06/01/2017 07/23/2017 Inactive promethazine 25 mg tablet RxNorm: 826754 1 Tablet(s) PO Q6 PRN 1 Tablet(s) PO Q6 PRN 05/25/2017 06/01/2017 Inactive gabapentin 600 mg tablet RxNorm: 312972 TAKE ONE & ONE-HALF TABLETS BY MOUTH THREE TIMES DAILY 05/23/2017 06/20/2017 Inactive promethazine 25 mg tablet RxNorm: 358345 1 Tablet(s) PO Q6 PRN 1 Tablet(s) PO Q6 PRN 05/19/2017 05/24/2017 Inactive Flagyl 500 mg tablet RxNorm: 514608 1 Tablet(s) PO TID 201605/26/2017 Inactive Levaquin 500 mg tablet RxNorm: 418405 1 Tablet(s) PO daily 05/16/2017 Inactive Tessalon Perles 100 mg capsule RxNorm: 846308 2 Capsule(s) PO TID as needed 05/17/2017 05/31/2017 Inactive Flagyl 500 mg tablet RxNorm: 307244 1 Tablet(s) PO TID 201605/16/2017 Inactive hyoscyamine 0.125 mg sublingual tablet RxNorm: 5068472 1 Tablet(s) SL TID as needed 05/17/2017 06/12/2017 Inactive Levaquin 500 mg tablet RxNorm: 341118 1 Tablet(s) PO daily 05/23/2017 Inactive Cymbalta 60 mg capsule,delayed release RxNorm: 654063 1 Capsule(s) PO daily take with 30mg tablet 05/16/2017 08/13/2017 Inactive Bentyl 10 mg capsule RxNorm: 021146 1 Capsule(s) PO TID as needed 05/12/2017 06/10/2017 Inactive Levsin 0.125 mg tablet RxNorm: 6461027 1 Tablet(s) PO Q4 PRN 1-2 Tablet(s) PO Q4 PRN 05/11/2017 05/11/2017 Inactive nystatin 100,000 unit/gram topical powder RxNorm: 663766 Gram(s) APPLY POWDER TOPICALLY 4 TIMES DAILY 05/11/20172017 Inactive nystatin 100,000 unit/mL oral suspension RxNorm: 044961 4 Milliliter(s) PO QID swish and swallow 05/10/2017 05/19/2017 Inactive and Monistat over the counter colestipol 1 gram tablet RxNorm: 3726535 TAKE ONE TABLET BY MOUTH TWICE DAILY 05/08/2017 03/29/2018 Inactive Lantus 100 unit/mL subcutaneous solution RxNorm: 415856 30 units QAM and 50 units QHS Unit(s) SQ 04/28/2017 05/27/2017 Inactive Please provide 30 day supply Lantus Solostar 100 unit/mL (3 mL) subcutaneous insulin pen RxNorm: 030745 Unit( s) SQ BID 04/28/2017 06/13/2017 Inactive 30 units q am and 50units at night Lantus 100 unit/mL subcutaneous solution RxNorm: 648111 30 units QAM and 50 units QHS Unit(s) SQ 04/28/2017 04/27/2017 Inactive Please provide 30 day supply Levsin 0.125 mg tablet RxNorm: 4903577 1 Tablet(s) PO Q4 PRN 1-2 Tablet(s) PO Q4 PRN 04/25/2017 05/10/2017 Inactive promethazine 25 mg tablet RxNorm: 722145 1 Tablet(s) PO Q6 PRN 1 Tablet(s) PO Q6 PRN 04/25/2017 05/02/2017 Inactive Toprol XL 100 mg tablet,extended release RxNorm: 539525 TAKE ONE TABLET BY MOUTH TWICE DAILY 04/24/2017 11/14/2017 Inactive Flagyl 500 mg tablet RxNorm: 488190 1 Tablet(s) PO TID 201604/30/2017 Inactive Levaquin 500 mg tablet RxNorm: 683930 1 Tablet(s) PO daily 05/201604/27/2017 Inactive Voltaren 1 % topical gel RxNorm: 536819 4 Gram(s) TOP QID 04/1810/14/2017 Inactive mupirocin 2 % topical ointment RxNorm: 182514 1 Application TOP BID 04/18/2017 04/27/2017 Inactive apply to sore in belly button Lantus Solostar 100 unit/mL (3 mL) subcutaneous insulin pen RxNorm: 299561 Unit( s) SQ BID 04/18/2017 04/27/2017 Inactive 20 units q am and 50units at night levothyroxine 88 mcg tablet RxNorm: 024820 1 Tablet(s) PO daily TAKE ONE TABLET BY MOUTH ONCE DAILY 04/06/2017 04/17/2017 Inactive Xanax 0.5 mg tablet RxNorm: 686367 Tablet(s) TAKE ONE TABLET BY MOUTH THREE TIMES DAILY 04/04/2017 06/02/2017 Inactive Percocet 10 mg-325 mg tablet RxNorm: 5505538 1-2 Tablet(s) PO Q6 PRN 04/04/2017 04/18/2017 Inactive cyclobenzaprine 10 mg tablet RxNorm: 617230 TAKE ONE TABLET BY MOUTH EVERY 8 HOURS NEEDED 04/03/2017 06/01/2017 Inactive potassium chloride ER 20 mEq tablet,extended release RxNorm: 980602 1 Tablet(s) PO daily 03/28/2017 06/01/2017 Inactive nystatin 100,000 unit/gram topical cream RxNorm: 351557 1 Application TOP BID 03/27/2017 04/09/2017 Inactive Levsin 0.125 mg tablet RxNorm: 2308352 1 Tablet(s) PO Q4 PRN 1-2 Tablet(s) PO Q4 PRN 03/27/2017 04/24/2017 Inactive promethazine 25 mg tablet RxNorm: 010570 1 Tablet(s) PO Q6 PRN 03/23/2017 03/29/2017 Inactive nystatin 100,000 unit/gram topical powder RxNorm: 060696 APPLY POWDER TOPICALLY 4 TIMES DAILY 03/17/2017 05/10/2017 Inactive Percocet 10 mg-325 mg tablet RxNorm: 5946593 1-2 Tablet(s) PO Q6 PRN 03/09/2017 03/23/2017 Inactive Levsin 0.125 mg tablet RxNorm: 4467191 1-2 Tablet(s) PO Q4 PRN 03/06/2017 03/26/2017 Inactive promethazine 25 mg tablet RxNorm: 884658 1 Tablet(s) PO Q6 PRN 03/06/2017 03/13/2017 Inactive potassium chloride ER 20 mEq tablet,extended release RxNorm: 472168 1 Tablet(s) PO BID 02/23/2017 03/09/2017 Inactive Levsin/SL 0.125 mg sublingual tablet RxNorm: 4314686 1-2 Tablet(s) SL Q4 PRN 02/17/2017 03/26/2017 Inactive potassium chloride ER 20 mEq tablet,extended release RxNorm: 923466 1 Tablet(s) PO BID 02/17/2017 02/21/2017 Inactive magnesium oxide 400 mg tablet RxNorm: 138736 1 Tablet(s) PO daily 02/17/2017 02/21/2017 Inactive then twice weekly thereafter Levsin 0.125 mg tablet RxNorm: 4321735 1-2 Tablet(s) PO Q4 PRN 02/17/2017 02/16/2017 Inactive promethazine 25 mg tablet RxNorm: 787853 1 Tablet(s) PO Q6 PRN 02/10/2017 03/05/2017 Inactive Percocet 10 mg-325 mg tablet RxNorm: 0871001 1-2 Tablet(s) PO Q6 PRN 02/09/2017 02/23/2017 Inactive Cymbalta 60 mg capsule,delayed release RxNorm: 270389 1 Capsule(s) PO daily take with 30mg tablet 02/06/2017 05/06/2017 Inactive Cymbalta 30 mg capsule,delayed release RxNorm: 361006 1 Capsule(s) PO daily take with 60mg tablet 02/06/2017 02/19/2018 Inactive take with 60mg=90mg Vitamin D2 50,000 unit capsule RxNorm: 551987 1 Capsule(s) PO daily 01/17/2017 01/16/2017 Inactive daily x 6 mths Tresiba FlexTouch U-100 100 unit/mL (3 mL) subcutaneous insulin pen RxNorm: 8079267 40 Unit(s) SQ daily 01/17/20172016 Inactive Tresiba FlexTouch U-100 100 unit/mL (3 mL) subcutaneous insulin pen RxNorm: 6672384 40 Unit(s) SQ daily 01/17/20172016 Inactive Vitamin D2 50,000 unit capsule RxNorm: 088416 1 Capsule(s) PO daily 01/17/2017 10/26/2017 Inactive daily x 6 mths Cymbalta 30 mg capsule,delayed release RxNorm: 276372 1 Capsule(s) PO daily 01/16/2017 02/05/2017 Inactive take with 60mg=90mg Percocet 10 mg-325 mg tablet RxNorm: 3554385 1-2 Tablet(s) PO Q6 PRN 01/13/2017 01/27/2017 Inactive gabapentin 600 mg tablet RxNorm: 998595 TAKE ONE & ONE-HALF TABLETS BY MOUTH THREE TIMES DAILY 01/10/2017 05/09/2017 Inactive Percocet 10 mg-325 mg tablet RxNorm: 7243837 1-2 Tablet(s) PO Q6 PRN 12/21/2016 01/04/2017 Inactive Xanax 0.5 mg tablet RxNorm: 632640 Tablet(s) TAKE ONE TABLET BY MOUTH THREE TIMES DAILY 12/20/2016 02/15/2017 Inactive promethazine 25 mg tablet RxNorm: 438075 1 Tablet(s) PO Q6 PRN 12/16/2016 12/18/2016 Inactive prednisone 20 mg tablet RxNorm: 096786 2 Tablet(s) PO daily 12/14/2016 Inactive prednisone 20 mg tablet RxNorm: 238321 2 Tablet(s) PO daily 03/26/2017 Inactive Eliquis 5 mg tablet RxNorm: 3725658 1 Tablet(s) PO BID 201601/11/2017 Inactive doxycycline monohydrate 100 mg tablet RxNorm: 335026 1 Tablet(s) PO BID 12/13/2016 03/26/2017 Inactive give doxycyline hyclate cyclobenzaprine 10 mg tablet RxNorm: 820206 TAKE ONE TABLET BY MOUTH EVERY 8 HOURS NEEDED 12/09/2016 12/28/2016 Inactive Cymbalta 60 mg capsule,delayed release RxNorm: 073036 TAKE ONE CAPSULE BY MOUTH ONCE DAILY 11/30/2016 02/05/2017 Inactive promethazine 25 mg tablet RxNorm: 975098 2 Tablet(s) PO Q6 PRN 11/29/2016 12/16/2016 Inactive Percocet 10 mg-325 mg tablet RxNorm: 4846733 1-2 Tablet(s) PO Q6 PRN 11/24/2016 12/08/2016 Inactive mupirocin 2 % topical ointment RxNorm: 527030 1 Application TOP BID 11/11/2016 11/24/2016 Inactive Xanax 0.5 mg tablet RxNorm: 003572 Tablet(s) TAKE ONE TABLET BY MOUTH THREE TIMES DAILY 11/11/2016 12/19/2016 Inactive Belviq 10 mg tablet RxNorm: 7836636 1 Tablet(s) PO BID 201612/10/2016 Inactive Toprol XL 100 mg tablet,extended release RxNorm: 717998 TAKE ONE TABLET BY MOUTH TWICE DAILY 11/04/2016 04/02/2017 Inactive albuterol sulfate concentrate 2.5 mg/0.5 mL solution for nebulization RxNorm: 891794 USE ONE VIAL IN NEBULIZER EVERY 4 TO 6 HOURS NEEDED 11/03/2016 11/12/2016 Inactive Percocet 10 mg-325 mg tablet RxNorm: 1594787 1-2 Tablet(s) PO Q6 PRN 10/31/2016 11/23/2016 Inactive promethazine 25 mg tablet RxNorm: 600154 2 Tablet(s) PO Q6 PRN 10/28/2016 11/28/2016 Inactive nystatin 100,000 unit/mL oral suspension RxNorm: 550395 5 Milliliter(s) PO QID 10/28/2016 11/06/2016 Inactive Levemir FlexTouch 100 unit/mL (3 mL) subcutaneous insulin pen RxNorm: 093570 45 Unit(s) SQ BID 10/28/2016 01/16/2017 Inactive 45 q am and 40 q anita cyclobenzaprine 10 mg tablet RxNorm: 432641 TAKE ONE TABLET BY MOUTH EVERY 8 HOURS NEEDED 10/21/2016 11/09/2016 Inactive Lasix 40 mg tablet RxNorm: 238603 TAKE ONE TABLET BY MOUTH TWICE DAILY 10/18/2016 04/15/2017 Inactive Percocet 10 mg-325 mg tablet RxNorm: 3480917 1-2 Tablet(s) PO Q6 PRN 10/18/2016 10/30/2016 Inactive acyclovir 400 mg tablet RxNorm: 176517 2 Tablet(s) PO QID 10/1310/22/2016 Inactive Lasix 40 mg tablet RxNorm: 776483 TAKE ONE TABLET BY MOUTH TWICE DAILY 10/10/2016 10/17/2016 Inactive ropinirole 1 mg tablet RxNorm: 883163 TAKE ONE TABLET BY MOUTH AT BEDTIME 10/10/2016 04/07/2017 Inactive nystatin 100,000 unit/mL oral suspension RxNorm: 972470 5 Milliliter(s) PO QID x 10 days 09/30/2016 10/09/2016 Inactive nystatin 100,000 unit/mL oral suspension RxNorm: 561795 5 Milliliter(s) PO QID x 10 days 09/30/2016 10/09/2016 Inactive Swish et swallow Flonase Allergy Relief 50 mcg/actuation nasal spray, suspension RxNorm: 1862631 2 [place] NASAL daily 09/23/20162016 Inactive Percocet 10 mg-325 mg tablet RxNorm: 3178192 1-2 Tablet(s) PO Q6 PRN 09/23/2016 10/17/2016 Inactive doxycycline monohydrate 100 mg tablet RxNorm: 949969 1 Tablet(s) PO BID 09/23/2016 10/02/2016 Inactive give doxycyline hyclate Levemir FlexTouch 100 unit/mL (3 mL) subcutaneous insulin pen RxNorm: 577268 40 Unit(s) SQ BID 09/15/2016 10/27/2016 Inactive nystatin 100,000 unit/gram topical powder RxNorm: 505931 1 Application TOP QID 09/13/2016 09/22/2016 Inactive Voltaren 1 % topical gel RxNorm: 372443 4 Gram(s) TOP QID 09/1303/11/2017 Inactive Anusol-HC 25 mg rectal suppository RxNorm: 4542458 1 Suppository RTL HS 09/13/2016 09/26/2016 Inactive hydrocodone 10 mg-acetaminophen 325 mg tablet RxNorm: 863179 1-2 Tablet(s) PO Q6 as needed 09/13/2016 09/22/2016 Inactive Linzess 145 mcg capsule RxNorm: 5475678 1 Capsule(s) PO daily 09/01/2016 10/26/2017 Inactive Linzess 145 mcg capsule RxNorm: 9674538 1 Capsule(s) PO daily 09/01/2016 08/31/2016 Inactive Zofran 4 mg tablet RxNorm: 985061 TAKE ONE TABLET BY MOUTH EVERY 4 TO 6 HOURS NEEDED 08/29/2016 08/02/2017 Inactive Voltaren 1 % topical gel RxNorm: 418837 4 Gram(s) TOP QID 08/2309/12/2016 Inactive levothyroxine 88 mcg tablet RxNorm: 488839 TAKE ONE TABLET BY MOUTH ONCE DAILY 08/19/2016 12/16/2016 Inactive hydrocodone 10 mg-acetaminophen 325 mg tablet RxNorm: 734960 1 Tablet(s) PO Q6 as needed 08/17/2016 09/12/2016 Inactive nystatin 100,000 unit/gram topical powder RxNorm: 260844 1 Application TOP QID 08/16/2016 08/25/2016 Inactive Cymbalta 60 mg capsule,delayed release RxNorm: 096731 TAKE ONE CAPSULE BY MOUTH ONCE DAILY 08/10/2016 11/29/2016 Inactive Voltaren 1 % topical gel RxNorm: 356741 4 Gram(s) TOP QID 08/1008/22/2016 Inactive Voltaren 1 % topical gel RxNorm: 370746 4 Gram(s) TOP QID 08/1008/09/2016 Inactive promethazine 25 mg tablet RxNorm: 473505 TAKE ONE TABLET BY MOUTH EVERY 8 HOURS NEEDED FOR NAUSEA 07/29/20162017 Inactive nystatin 100,000 unit/gram topical powder RxNorm: 798506 1 Application TOP QID 07/26/2016 08/04/2016 Inactive Levemir FlexTouch U-100 Insulin 100 unit/mL (3 mL) subcutaneous pen RxNorm: 736126 35 Unit(s) SQ BID 07/26/201609/2016 Inactive 35 q am and 30 q pm cyclobenzaprine 10 mg tablet RxNorm: 319657 TAKE ONE TABLET BY MOUTH EVERY 8 HOURS NEEDED 07/14/2016 08/22/2016 Inactive hydrocodone 10 mg-acetaminophen 325 mg tablet RxNorm: 481128 1 Tablet(s) PO Q6 as needed 07/11/2016 08/16/2016 Inactive nystatin 100,000 unit/mL oral suspension RxNorm: 997127 5 Milliliter(s) PO QID x 10 days 07/05/2016 07/04/2016 Inactive nystatin 100,000 unit/mL oral suspension RxNorm: 393626 5 Milliliter(s) PO QID x 10 days 07/05/2016 07/04/2016 Inactive nystatin 100,000 unit/mL oral suspension RxNorm: 996580 5 Milliliter(s) PO QID x 10 days 07/05/2016 07/14/2016 Inactive Swish et swallow doxycycline monohydrate 100 mg tablet RxNorm: 239832 1 Tablet(s) PO BID 06/24/2016 07/03/2016 Inactive give doxycyline hyclate promethazine 25 mg tablet RxNorm: 646208 TAKE ONE TABLET BY MOUTH EVERY 8 HOURS NEEDED FOR NAUSEA 06/01/20162016 Inactive pantoprazole 40 mg tablet,delayed release RxNorm: 853524 1 Tablet(s) PO BID 05/25/2016 08/02/2017 Inactive Zofran 4 mg tablet RxNorm: 562706 1 Tablet(s) PO Q12 PRN TAKE 1 TABLET BY MOUTH EVERY 4 TO 6 HOURS NEEDED 05/24/2016 Inactive hydrocodone 10 mg-acetaminophen 325 mg tablet RxNorm: 931777 1 Tablet(s) PO Q6 as needed 05/24/2016 07/10/2016 Inactive Levemir FlexTouch 100 unit/mL (3 mL) subcutaneous insulin pen RxNorm: 037341 25 Unit(s) SQ BID 05/24/2016 06/22/2016 Inactive Xanax 0.5 mg tablet RxNorm: 239282 Tablet(s) TAKE ONE TABLET BY MOUTH THREE TIMES DAILY 05/11/2016 07/09/2016 Inactive BD Insulin Pen Needle UF Short 31 gauge x 5/16" RxNorm: [facility] [place] 05/06/2016 05/05/2016 Inactive BD Insulin Pen Needle UF Short 31 gauge x 16" RxNorm: [facility] [place] 05/06/2016 06/04/2016 Inactive colestipol 1 gram tablet RxNorm: 7398082 Tablet(s) TAKE 1 TABLET BY MOUTH TWICE DAILY 04/22/2016 04/16/2017 Inactive Levemir FlexTouch 100 unit/mL (3 mL) subcutaneous insulin pen RxNorm: 661428 20 Unit(s) SQ BID 04/19/2016 05/18/2016 Inactive 25 UNITS Q AM AND 20 UNITS Q HS Cartia XT 180 mg capsule,extended release RxNorm: 688970 Capsule(s) BID 04/11/2016 04/05/2017 Inactive hydrocodone 10 mg-acetaminophen 325 mg tablet RxNorm: 128966 1 Tablet(s) PO Q6 as needed 04/11/2016 05/23/2016 Inactive Levemir FlexTouch 100 unit/mL (3 mL) subcutaneous insulin pen RxNorm: 066213 20 Unit(s) SQ BID 04/11/2016 04/18/2016 Inactive 20 UNITS Q AM AND 15 UNITS Q HS X 1 WEEK THEN 20 UNITS BID levothyroxine 88 mcg tablet RxNorm: 994121 1 Tablet(s) PO daily 03/21/2016 07/18/2016 Inactive Cymbalta 60 mg capsule,delayed release RxNorm: 439055 1 Capsule(s) PO daily 03/21/2016 07/18/2016 Inactive diltiazem ER (XR/XT) 240 mg capsule,extended release, controlled RxNorm: 645028 1 Capsule(s) PO BID 03/18/20162017 Inactive doxycycline hyclate 100 mg tablet RxNorm: 814156 1 Tablet(s) PO BID 03/11/2016 03/17/2016 Inactive Levemir FlexTouch 100 unit/mL (3 mL) subcutaneous insulin pen RxNorm: 378887 10 Unit(s) SQ BID 03/11/2016 04/09/2016 Inactive Lasix 40 mg tablet RxNorm: 290067 1 Tablet(s) PO BID 201509/06/2016 Inactive gabapentin 600 mg tablet RxNorm: 709060 Tablet(s) 1.5 TABLET(S) PO TID 03/04/2016 08/30/2016 Inactive Toujeo SoloStar 300 unit/mL (1.5 mL) subcutaneous insulin pen RxNorm: 5014595 10 Unit(s) SQ QHS 02/26/2016 03/26/2016 Inactive polymyxin B sulfate 10,000 unit-trimethoprim 1 mg/mL eye drops RxNorm: 097100 2 Drop(s) OPH TID 02/26/2016 03/03/2016 Inactive Lasix 20 mg tablet RxNorm: 980145 2 Tablet(s) PO BID TAKE 2 TABLETS BY MOUTH EVERY MORNING AND 2 TABLET BY MOUTH AT 3 PM 02/26/2016 03/10/2016 Inactive cyclobenzaprine 10 mg tablet RxNorm: 274455 Tablet(s) TABLET(S) TABLET(S) 1 TABLET (S) PO NEEDED TAKE 1 TABLET BY MOUTH EVERY 8 HOURS NEEDED 02/26/2016 07/13/2016 Inactive early fill- pt lost med Levemir FlexTouch 100 unit/mL (3 mL) subcutaneous insulin pen RxNorm: 048842 16 Unit(s) SQ QHS 02/18/2016 02/17/2016 Inactive Levemir FlexTouch 100 unit/mL (3 mL) subcutaneous insulin pen RxNorm: 455389 16 Unit(s) SQ QHS 02/18/2016 02/25/2016 Inactive Levemir 100 unit/mL subcutaneous solution RxNorm: 871313 16 Unit(s) SQ QHS 02/15/2016 02/17/2016 Inactive disp needles as well Effexor XR 37.5 mg capsule,extended release RxNorm: 417966 1 Capsule(s) QPM CAPSULE(S) PO TAKE 2 CAPSULES BY MOUTH EVERY MORNING AND 1 CAPSULE BY MOUTH EVERY NIGHT AT BEDTIME 02/15/20162015 Inactive clotrimazole 100 mg vaginal tablet RxNorm: 906173 1 Tablet(s) VAG QHS 02/05/2016 02/11/2016 Inactive clotrimazole 100 mg vaginal tablet RxNorm: 786086 1 Tablet(s) VAG QHS 02/05/2016 02/04/2016 Inactive hydrocodone 10 mg-acetaminophen 325 mg tablet RxNorm: 700264 1 Tablet(s) PO Q6 as needed 02/05/2016 04/10/2016 Inactive flecainide 100 mg tablet RxNorm: 188386 1 Tablet(s) PO BID No Stop Date Active potassium chloride ER 10 mEq tablet,extended release RxNorm: 428391 1 Tablet(s) PO daily 1 TABLET(S) PO QDAY PRN TAKE WITH LASIX 02/02/2016 01/26/2017 Inactive Brovana 15 mcg/2 mL solution for nebulization RxNorm: 386670 2 Milliliter(s) INH BID PRN 02/02/2016 03/20/2016 Inactive promethazine 25 mg tablet RxNorm: 617211 1 Tablet(s) PO Q8 as needed nausea 01/27/2016 03/20/2016 Inactive promethazine 25 mg tablet RxNorm: 682838 1 Tablet(s) PO Q6 PRN 01/27/2016 02/03/2016 Inactive nystatin 100,000 unit/mL oral suspension RxNorm: 802178 5 Unit(s) PO QID 01/12/2016 01/21/2016 Inactive promethazine 25 mg tablet RxNorm: 079338 1 Tablet(s) PO Q6 PRN 12/30/2015 01/06/2016 Inactive hydrocodone 7.5 mg-acetaminophen 325 mg tablet RxNorm: 513844 1 Tablet(s) PO q 6 hours prn for pain 12/10/2015 01/06/2016 Inactive Xanax 0.5 mg tablet RxNorm: 057944 TAKE ONE TABLET BY MOUTH THREE TIMES DAILY 12/02/2015 12/31/2015 Inactive Xanax 0.5 mg tablet RxNorm: 046500 Tablet(s) TAKE 1 TABLET BY MOUTH THREE TIMES DAILY 12/02/2015 11/30/2015 Inactive Anusol-HC 25 mg rectal suppository RxNorm: 0545935 1 Suppository RTL HS 11/27/2015 09/12/2016 Inactive ropinirole 1 mg tablet RxNorm: 718984 1 Tablet(s) PO QHS 201505/24/2016 Inactive nystatin 100,000 unit/mL oral suspension RxNorm: 188859 5 Unit(s) PO QID 11/20/2015 11/29/2015 Inactive albuterol sulfate concentrate 2.5 mg/0.5 mL solution for nebulization RxNorm: 502999 3 Milliliter(s) INH Q4-6H as needed 11/10/2015 11/02/2016 Inactive doxycycline monohydrate 100 mg tablet RxNorm: 630984 1 Tablet(s) PO BID 11/10/2015 11/19/2015 Inactive give doxycyline hyclate promethazine 25 mg tablet RxNorm: 484146 1 Tablet(s) PO Q6 PRN 11/05/2015 11/12/2015 Inactive Bactroban 2 % topical ointment RxNorm: 280634 1 APPLICATION TOP BID 10/27/2015 10/26/2017 Inactive Belviq 10 mg tablet RxNorm: 5197000 1 Tablet(s) PO BID 201511/25/2015 Inactive hydrocodone 7.5 mg-acetaminophen 325 mg tablet RxNorm: 782694 1 Tablet(s) PO q 6 hours prn for pain 10/20/2015 11/18/2015 Inactive Toprol XL 100 mg tablet,extended release RxNorm: 366607 Tablet(s) TAKE 1 TABLET BY MOUTH TWICE DAILY 10/16/20152016 Inactive Diflucan 150 mg tablet RxNorm: 263388 1 Tablet(s) PO every other day 10/14/2015 10/23/2015 Inactive Xanax 0.5 mg tablet RxNorm: 800274 Tablet(s) TAKE 1 TABLET BY MOUTH THREE TIMES DAILY 10/14/2015 05/10/2016 Inactive Toprol XL 100 mg tablet,extended release RxNorm: 556122 Tablet(s) TAKE 1 TABLET BY MOUTH TWICE DAILY 10/13/20152015 Inactive cyclobenzaprine 10 mg tablet RxNorm: 350818 Tablet(s) TABLET(S) TABLET(S) 1 TABLET (S) PO NEEDED TAKE 1 TABLET BY MOUTH EVERY 8 HOURS NEEDED 10/02/2015 10/14/2015 Inactive Zofran 4 mg tablet RxNorm: 284065 Tablet(s) 1 TABLET(S) PRN TAKE 1 TABLET BY MOUTH EVERY 4 TO 6 HOURS NEEDED 09/29/2015 12/27/2015 Inactive Synthroid 88 mcg tablet RxNorm: 598063 1 Tablet(s) PO daily 1 TABLET(S) PO DAILY 09/29/2015 10/28/2015 Inactive Patient requests 90 days supply promethazine 25 mg tablet RxNorm: 549669 1 Tablet(s) PO Q6 PRN 09/29/2015 11/04/2015 Inactive Lasix 20 mg tablet RxNorm: 936360 2 Tablet(s) PO BID 201501/18/2016 Inactive promethazine 25 mg tablet RxNorm: 888425 1 Tablet(s) PO Q6 PRN 09/22/2015 09/28/2015 Inactive hydrocodone 7.5 mg-acetaminophen 325 mg tablet RxNorm: 626614 1 Tablet(s) PO q 6 hours prn for pain 09/17/2015 10/16/2015 Inactive WelChol 625 mg tablet RxNorm: 495295 3 Tablet(s) PO BID 201503/26/2017 Inactive promethazine 25 mg tablet RxNorm: 672958 1 Tablet(s) PO Q8 as needed 09/07/2015 10/26/2017 Inactive Levemir 100 unit/mL subcutaneous solution RxNorm: 881759 16 Unit(s) SQ QHS 09/01/2015 02/14/2016 Inactive pantoprazole 40 mg tablet,delayed release RxNorm: 675897 1 Tablet(s) PO daily 09/01/2015 05/24/2016 Inactive Effexor XR 37.5 mg capsule,extended release RxNorm: 582870 Capsule(s) CAPSULE(S) PO TAKE 2 CAPSULES BY MOUTH EVERY MORNING AND 1 CAPSULE BY MOUTH EVERY NIGHT AT BEDTIME 08/27/2015 02/14/2016 Inactive promethazine 25 mg tablet RxNorm: 788538 1 Tablet(s) PO Q8 as needed 08/13/2015 09/06/2015 Inactive gabapentin 600 mg tablet RxNorm: 038843 Tablet(s) 1.5 TABLET(S) PO TID 08/13/2015 02/08/2016 Inactive hydrocodone 7.5 mg-acetaminophen 325 mg tablet RxNorm: 361148 1 Tablet(s) PO q 6 hours prn for pain 08/10/2015 09/08/2015 Inactive Zofran 4 mg tablet RxNorm: 380943 Tablet(s) 1 TABLET(S) PRN TAKE 1 TABLET BY MOUTH EVERY 4 TO 6 HOURS NEEDED 08/04/2015 08/03/2015 Inactive Zofran 4 mg tablet RxNorm: 670874 Tablet(s) 1 TABLET(S) PRN TAKE 1 TABLET BY MOUTH EVERY 4 TO 6 HOURS NEEDED 08/04/2015 09/28/2015 Inactive doxycycline monohydrate 100 mg tablet RxNorm: 311691 1 Tablet(s) PO BID 08/04/2015 08/10/2015 Inactive give doxycyline hyclate Diflucan 150 mg tablet RxNorm: 924587 1 Tablet(s) PO every other day 07/31/2015 08/09/2015 Inactive nystatin 100,000 unit/mL oral suspension RxNorm: 085407 5 Milliliter(s) PO QID 07/31/2015 07/30/2015 Inactive Diflucan 150 mg tablet RxNorm: 988365 1 Tablet(s) PO every other day 07/31/2015 07/30/2015 Inactive nystatin 100,000 unit/mL oral suspension RxNorm: 574797 5 Milliliter(s) PO QID 07/31/2015 08/09/2015 Inactive Ceftin 500 mg tablet RxNorm: 044373 1 Tablet(s) PO BID 201507/23/2015 Inactive Ceftin 500 mg tablet RxNorm: 211856 1 Tablet(s) PO BID Pre-medicate with benadryl 50 mg, pepcid 20 mg, and nathanael before each dose 07/24/2015 07/30/2015 Inactive cyclobenzaprine 10 mg tablet RxNorm: 511712 TABLET(S) TABLET(S) 1 TABLET(S) PO NEEDED TAKE 1 TABLET BY MOUTH EVERY 8 HOURS NEEDED 201502/25/2016 Inactive early fill- pt lost med Synthroid 88 mcg tablet RxNorm: 675455 1 TABLET(S) PO DAILY 07/201509/28/2015 Inactive Patient requests 90 days supply cyclobenzaprine 10 mg tablet RxNorm: 709099 Tablet(s) TABLET(S) TABLET(S) 1 TABLET (S) PO NEEDED TAKE 1 TABLET BY MOUTH EVERY 8 HOURS NEEDED 07/23/2015 10/01/2015 Inactive early fill- pt lost med Promethazine VC 6.25 mg-5 mg/5 mL syrup RxNorm: 6219747 1-2 Teaspoon(s) PO Q6 PRN as needed 07/22/2015 03/20/2016 Inactive Diflucan 150 mg tablet RxNorm: 546482 1 Tablet(s) PO daily 06/201507/22/2015 Inactive Lasix 20 mg tablet RxNorm: 755389 Tablet(s) TAKE 2 TABLETS BY MOUTH EVERY MORNING AND 2 TABLET BY MOUTH AT 3PM 07/16/2015 09/21/2015 Inactive Toprol XL 100 mg tablet,extended release RxNorm: 349154 Tablet(s) TAKE 1 TABLET BY MOUTH TWICE DAILY 07/16/20152015 Inactive Cartia XT 180 mg capsule,extended release RxNorm: 133648 Capsule(s) 1 CAPSULE(S) PO DAILY TAKE 1 CAPSULE BY MOUTH AT BEDTIME ..TAKE THIS IN ADDITION TO 240 MG IN THE MORNING 07/14/2015 04/10/2016 Inactive diltiazem ER (XR/XT) 240 mg capsule,extended release, controlled RxNorm: 622930 Capsule(s) TAKE 1 CAPSULE BY MOUTH DAILY 07/14/2015 03/17/2016 Inactive gabapentin 600 mg tablet RxNorm: 658470 Tablet(s) 1.5 TABLET(S) PO TID 07/06/2015 08/12/2015 Inactive Phenergan 25 mg tablet RxNorm: 651406 1 Tablet(s) PO Q8 as needed nausea 06/29/2015 01/25/2016 Inactive doxycycline monohydrate 100 mg tablet RxNorm: 518559 1 Tablet(s) PO BID 06/29/2015 06/28/2015 Inactive doxycycline monohydrate 100 mg tablet RxNorm: 254440 1 Tablet(s) PO BID 06/29/2015 07/08/2015 Inactive give doxycyline hyclate doxycycline monohydrate 100 mg tablet RxNorm: 721144 1 Tablet(s) PO BID 06/29/2015 06/28/2015 Inactive Lasix 20 mg tablet RxNorm: 052513 Tablet(s) TAKE 2 TABLETS BY MOUTH EVERY MORNING AND 2 TABLET BY MOUTH AT 3PM 06/29/2015 07/15/2015 Inactive Lasix 20 mg tablet RxNorm: Tablet(s) TAKE 2 TABLETS BY MOUTH EVERY MORNING AND 1 TABLET BY MOUTH AT 3PM 06/26/2015 06/28/2015 Inactive Xanax 0.5 mg tablet RxNorm: 735413 Tablet(s) TAKE 1 TABLET BY MOUTH THREE TIMES DAILY 06/26/2015 07/25/2015 Inactive Kenalog 40 mg/mL suspension for injection RxNorm: 6756638 Milliliter(s) Inj 06/26/2015 06/26/2015 Inactive hydrocodone 7.5 mg-acetaminophen 325 mg tablet RxNorm: 378258 1 Tablet(s) PO q 6 hours prn for pain 06/26/2015 07/25/2015 Inactive Dexilant 60 mg capsule, delayed release RxNorm: 040137 1 Capsule(s) PO daily 06/26/2015 08/24/2015 Inactive colestipol 1 gram tablet RxNorm: 2017558 1 TABLET(S) PO BID TAKE 1 TABLET BY MOUTH TWICE DAILY 06/16/2015 03/11/2016 Inactive hydrocodone 7.5 mg-acetaminophen 325 mg tablet RxNorm: 203047 1 Tablet(s) PO q 6 hours prn for pain 06/11/2015 06/25/2015 Inactive cyclobenzaprine 10 mg tablet RxNorm: 529082 TABLET(S) TABLET(S) 1 TABLET(S) PO NEEDED TAKE 1 TABLET BY MOUTH EVERY 8 HOURS NEEDED 201507/22/2015 Inactive early fill- pt lost med Zofran 4 mg tablet RxNorm: 962250 1 TABLET(S) PRN TAKE 1 TABLET BY MOUTH EVERY 4 TO 6 HOURS NEEDED 05/25/20152015 Inactive Zofran 4 mg tablet RxNorm: 250358 1 Tablet(s) PRN TAKE 1 TABLET BY MOUTH EVERY 4 TO 6 HOURS NEEDED 05/19/20152015 Inactive gabapentin 600 mg tablet RxNorm: 967822 1.5 TABLET(S) PO TID 07/05/2015 Inactive Lasix 20 mg tablet RxNorm: 891464 TAKE 2 TABLETS BY MOUTH EVERY MORNING AND 1 TABLET BY MOUTH AT 3PM 05/07/20152015 Inactive Effexor XR 37.5 mg capsule,extended release RxNorm: 711480 Capsule(s) CAPSULE(S) PO TAKE 2 CAPSULES BY MOUTH EVERY MORNING AND 1 CAPSULE BY MOUTH EVERY NIGHT AT BEDTIME 04/15/2015 08/26/2015 Inactive Diflucan 150 mg tablet RxNorm: 291067 1 Tablet(s) PO daily 04/18/2015 Inactive Victoza 3-Babak 0.6 mg/0.1 mL (18 mg/3 mL) subcutaneous pen injector RxNorm: 063132 1.8 Milligram(s) SQ daily 04/14/201508/10 Inactive Levaquin 500 mg tablet RxNorm: 721216 1 Tablet(s) PO daily 04/20/2015 Inactive potassium chloride ER 10 mEq tablet,extended release RxNorm: 832588 1 TABLET(S) PO QDAY PRN TAKE WITH LASIX 04/13/201504/2016 Inactive Effexor XR 37.5 mg capsule,extended release RxNorm: 053888 CAPSULE(S) PO TAKE 2 CAPSULES BY MOUTH EVERY MORNING AND 1 CAPSULE BY MOUTH EVERY NIGHT AT BEDTIME 04/10/2015 04/14/2015 Inactive pantoprazole 40 mg tablet,delayed release RxNorm: 152532 1 Tablet(s) PO daily 03/31/2015 08/31/2015 Inactive Dexilant 60 mg capsule, delayed release RxNorm: 842434 1 Capsule(s) PO daily 03/31/2015 03/31/2015 Inactive pantoprazole 40 mg tablet,delayed release RxNorm: 122750 1 Tablet(s) PO daily 03/31/2015 03/30/2015 Inactive Dexilant 60 mg capsule, delayed release RxNorm: 369731 1 Capsule(s) PO daily 03/31/2015 05/29/2015 Inactive Dexilant 60 mg capsule, delayed release RxNorm: 369552 1 Capsule(s) PO daily 03/30/2015 03/30/2015 Inactive hydrocodone 7.5 mg-acetaminophen 325 mg tablet RxNorm: 516397 1 Tablet(s) PO q 6 hours prn for pain 03/30/2015 04/28/2015 Inactive cyclobenzaprine 10 mg tablet RxNorm: 068429 TABLET(S) TABLET(S) 1 TABLET(S) PO NEEDED TAKE 1 TABLET BY MOUTH EVERY 8 HOURS NEEDED 201405/31/2015 Inactive early fill- pt lost med Xanax 0.5 mg tablet RxNorm: 976697 Tablet(s) TAKE 1 TABLET BY MOUTH THREE TIMES DAILY 03/25/2015 04/23/2015 Inactive Lasix 20 mg tablet RxNorm: TAKE 2 TABLETS BY MOUTH EVERY MORNING AND 1 TABLET BY MOUTH AT 3PM 03/23/20152014 Inactive Levemir Flexpen 100 unit/mL (3 mL) solution subcutaneous insulin pen RxNorm: 570387 15 Unit(s) SQ BID 03/20/20152015 Inactive give quanity sufficient for 1 month- Dexilant 60 mg capsule, delayed release RxNorm: 658982 1 Capsule(s) PO daily 03/19/2015 03/29/2015 Inactive Dexilant 60 mg capsule, delayed release RxNorm: 239647 1 Capsule(s) PO daily 03/19/2015 03/18/2015 Inactive Diflucan 150 mg tablet RxNorm: 192717 1 Tablet(s) PO every other day x7 doses 03/19/2015 03/21/2015 Inactive hydrocodone 7.5 mg-acetaminophen 325 mg tablet RxNorm: 920967 1 Tablet(s) PO q 6 hours prn for pain 02/27/2015 03/28/2015 Inactive Lasix 20 mg tablet RxNorm: TAKE 2 TABLETS BY MOUTH EVERY MORNING AND 1 TABLET BY MOUTH AT 3PM 02/27/20152014 Inactive omeprazole 20 mg capsule,delayed release RxNorm: 795267 1 CAPSULE(S) PO DAILY TAKE 1 CAPSULE BY MOUTH TWICE DAILY 02/26/2015 10/26/2017 Inactive Zofran 4 mg tablet RxNorm: 247113 1 Tablet(s) PRN TAKE 1 TABLET BY MOUTH EVERY 4 TO 6 HOURS NEEDED 02/24/20152014 Inactive fluconazole 150 mg tablet RxNorm: 397691 1 Tablet(s) PO every other day x 5 doses 02/19/2015 02/28/2015 Inactive cyclobenzaprine 10 mg tablet RxNorm: 801103 TABLET(S) TABLET(S) 1 TABLET(S) PO NEEDED TAKE 1 TABLET BY MOUTH EVERY 8 HOURS NEEDED 201403/29/2015 Inactive early fill- pt lost med hydrocodone 7.5 mg-acetaminophen 325 mg tablet RxNorm: 968090 1 Tablet(s) PO q 6 hours prn for pain 01/29/2015 02/26/2015 Inactive Xanax 0.5 mg tablet RxNorm: 209892 Tablet(s) TAKE 1 TABLET BY MOUTH THREE TIMES DAILY 01/29/2015 02/27/2015 Inactive Bactroban 2 % topical ointment RxNorm: 155694 1 APPLICATION TOP BID 01/26/2015 10/26/2015 Inactive Bactroban 2 % topical ointment RxNorm: 898000 1 Application TOP BID 01/15/2015 01/25/2015 Inactive doxycycline hyclate 100 mg tablet RxNorm: 235425 1 Tablet(s) PO BID 01/15/2015 01/21/2015 Inactive nystatin 100,000 unit/mL oral suspension RxNorm: 149412 5 Milliliter(s) PO QID 01/15/2015 01/24/2015 Inactive Cartia XT 180 mg capsule,extended release RxNorm: 815155 1 CAPSULE(S) PO DAILY TAKE 1 CAPSULE BY MOUTH AT BEDTIME ..TAKE THIS IN ADDITION TO 240 MG IN THE MORNING 01/13/2015 07/13/2015 Inactive Lasix 20 mg tablet RxNorm: 008904 TAKE 2 TABLETS BY MOUTH EVERY MORNING AND 1 TABLET BY MOUTH AT 3PM 01/08/20152014 Inactive fluconazole 150 mg tablet RxNorm: 668753 1 Tablet(s) PO daily 01/01/2015 01/05/2015 Inactive hydrocodone 7.5 mg-acetaminophen 325 mg tablet RxNorm: 138459 1 Tablet(s) PO q 6 hours prn for pain 01/01/2015 01/28/2015 Inactive colestipol 1 gram tablet RxNorm: 3880393 1 TABLET(S) PO BID TAKE 1 TABLET BY MOUTH TWICE DAILY 12/18/2014 06/15/2015 Inactive colestipol 1 gram tablet RxNorm: 3964458 1 TABLET(S) PO BID TAKE 1 TABLET BY MOUTH TWICE DAILY 12/18/2014 09/13/2015 Inactive Lasix 20 mg tablet RxNorm: TAKE 2 TABLETS BY MOUTH EVERY MORNING AND 2 TABLETS AND AT 3PM 12/11/2014 12/25/2014 Inactive cyclobenzaprine 10 mg tablet RxNorm: 879666 TABLET(S) 1 TABLET(S) PO NEEDED TAKE 1 TABLET BY MOUTH EVERY 8 HOURS NEEDED 12/11/2014 05/31/2017 Inactive Lasix 20 mg tablet RxNorm: Tablet(s) TABLET(S) PO TAKE 2 TABLETS BY MOUTH EVERY MORNING AND 1 TABLET BY MOUTH AT 3 PM 12/10/2014 12/10/2014 Inactive fill early- pt lost them cyclobenzaprine 10 mg tablet RxNorm: 644650 Tablet(s) TABLET(S) 1 TABLET(S) PO NEEDED TAKE 1 TABLET BY MOUTH EVERY 8 HOURS NEEDED 201402/15/2015 Inactive early fill- pt lost med cyclobenzaprine 10 mg tablet RxNorm: 718389 TABLET(S) 1 TABLET(S) PO NEEDED TAKE 1 TABLET BY MOUTH EVERY 8 HOURS NEEDED 12/02/2014 12/09/2014 Inactive hydrocodone 7.5 mg-acetaminophen 325 mg tablet RxNorm: 816112 1 Tablet(s) PO q 6 hours prn for pain 12/01/2014 12/30/2014 Inactive diltiazem ER (XR/XT) 240 mg capsule,extended release, controlled RxNorm: 819065 TAKE 1 CAPSULE BY MOUTH DAILY 11/30/2014 07/13/2015 Inactive Xanax 0.5 mg tablet RxNorm: 552951 1 Tablet(s) PO TID PRN as needed 11/19/2014 11/19/2014 Inactive (Appended: Controlled [id number]|1|0|1) Xanax 0.5 mg tablet RxNorm: 533281 TAKE 1 TABLET BY MOUTH THREE TIMES DAILY 11/19/2014 12/18/2014 Inactive Toprol XL 100 mg tablet,extended release RxNorm: 397061 TAKE 1 TABLET BY MOUTH TWICE DAILY 11/06/2014 07/15/2015 Inactive Diflucan 150 mg tablet RxNorm: 899025 1 Tablet(s) PO every other day x7 doses 11/05/2014 11/07/2014 Inactive omeprazole 20 mg capsule,delayed release RxNorm: 885854 1 Capsule(s) PO daily TAKE 1 CAPSULE BY MOUTH TWICE DAILY 11/04/2014 02/01/2015 Inactive cyclobenzaprine 10 mg tablet RxNorm: 522313 TABLET(S) 1 TABLET(S) PO NEEDED TAKE 1 TABLET BY MOUTH EVERY 8 HOURS NEEDED 10/28/2014 12/01/2014 Inactive hydrocodone 7.5 mg-acetaminophen 325 mg tablet RxNorm: 074725 1 Tablet(s) PO q 6 hours prn for pain 10/21/2014 11/19/2014 Inactive gabapentin 600 mg tablet RxNorm: 331133 1.5 Tablet(s) PO TID 04/30/2015 Inactive Xanax 0.5 mg tablet RxNorm: 364260 Tablet(s) TAKE 1 TABLET BY MOUTH THREE TIMES DAILY 10/01/2014 10/30/2014 Inactive (Response to an electronic controlled substance refill request - RxReferenceNumber: [id number]|1|0|1) Xanax 0.25 mg tablet RxNorm: 964032 1 Tablet(s) PO Q8 PRN as needed 09/30/2014 09/30/2014 Inactive Lasix 20 mg tablet RxNorm: 409896 Tablet(s) TAKE 2 TABLETS BY MOUTH EVERY MORNING AND 2 TABLETS BY MOUTH AT 3 PM 09/30/2014 11/12/2014 Inactive Victoza 3-Babak 0.6 mg/0.1 mL (18 mg/3 mL) subcutaneous pen injector RxNorm: 671528 1.2 MILLIGRAM(S) SQ DAILY 0.6 X 2 WEEKS THEN INCREASE TO 1.2MG DAILY 09/26/2014 04/13/2015 Inactive Xanax 0.5 mg tablet RxNorm: 650659 TAKE 1 TABLET BY MOUTH THREE TIMES DAILY 09/25/2014 09/30/2014 Inactive (Response to an electronic controlled substance refill request - RxReferenceNumber: [id number]|1|0|1) Zofran 4 mg tablet RxNorm: 089428 TAKE 1 TABLET BY MOUTH EVERY 4 TO 6 HOURS NEEDED 09/25/2014 09/27/2014 Inactive hydrocodone 7.5 mg-acetaminophen 325 mg tablet RxNorm: 549187 1 Tablet(s) PO q 6 hours prn for pain 09/19/2014 10/18/2014 Inactive cyclobenzaprine 10 mg tablet RxNorm: 775722 TABLET(S) 1 TABLET(S) PO NEEDED TAKE 1 TABLET BY MOUTH EVERY 8 HOURS NEEDED 09/15/2014 10/27/2014 Inactive Lasix 20 mg tablet RxNorm: 670181 Tablet(s) TAKE 2 TABLETS BY MOUTH EVERY MORNING AND 2 TABLETS BY MOUTH AT 3 PM 09/08/2014 09/29/2014 Inactive Lasix 20 mg tablet RxNorm: TAKE 2 TABLETS BY MOUTH EVERY MORNING AND 2 TABLETS BY MOUTH AT 3 PM 08/21/20142014 Inactive hydrocodone 7.5 mg-acetaminophen 325 mg tablet RxNorm: 797893 1 Tablet(s) PO q 6 hours prn for pain 08/21/2014 09/18/2014 Inactive Diflucan 150 mg tablet RxNorm: 154012 1 Tablet(s) PO every other day 08/15/2014 08/17/2014 Inactive cyclobenzaprine 10 mg tablet RxNorm: 117588 Tablet(s) 1 TABLET(S) PO NEEDED TAKE 1 TABLET BY MOUTH EVERY 8 HOURS NEEDED 08/12/2014 09/14/2014 Inactive Zofran 4 mg tablet RxNorm: 356968 TAKE 1 TABLET BY MOUTH EVERY 4 TO 6 HOURS NEEDED 07/31/2014 08/02/2014 Inactive Effexor XR 37.5 mg capsule,extended release RxNorm: 477867 CAPSULE(S) PO TAKE 2 CAPSULES BY MOUTH EVERY MORNING AND 1 CAPSULE BY MOUTH EVERY NIGHT AT BEDTIME 07/28/2014 02/15/2016 Inactive Lasix 20 mg tablet RxNorm: TAKE 2 TABLETS BY MOUTH EVERY MORNING AND 2 TABLETS BY MOUTH AT 3 PM 07/22/20142014 Inactive Diflucan 150 mg tablet RxNorm: 822159 1 Tablet(s) PO daily 06/201407/23/2014 Inactive hydrocodone 7.5 mg-acetaminophen 325 mg tablet RxNorm: 161610 1 Tablet(s) PO q 6 hours prn for pain 07/14/2014 08/12/2014 Inactive Synthroid 88 mcg tablet RxNorm: 721865 1 TABLET(S) PO DAILY 10/11/2014 Inactive Effexor XR 37.5 mg capsule,extended release RxNorm: 760077 Capsule(s) PO TAKE 2 CAPSULES BY MOUTH EVERY MORNING AND 1 CAPSULE BY MOUTH EVERY NIGHT AT BEDTIME 07/07/2014 04/09/2015 Inactive Effexor XR 37.5 mg capsule,extended release RxNorm: 040853 TAKE 2 CAPSULES BY MOUTH EVERY MORNING AND 1 CAPSULE BY MOUTH EVERY NIGHT AT BEDTIME 07/07/2014 01/02/2015 Inactive WelChol 625 mg tablet RxNorm: 987124 3 TABLET(S) PO BID 201410/04/2014 Inactive WelChol 625 mg tablet RxNorm: 682093 3 Tablet(s) PO BID 201402/01/2015 Inactive Zofran 4 mg tablet RxNorm: 262652 TAKE 1 TABLET BY MOUTH EVERY 4 TO 6 HOURS NEEDED 07/03/2014 07/05/2014 Inactive Lasix 20 mg tablet RxNorm: 677909 TAKE 2 TABLETS BY MOUTH EVERY MORNING AND 2 TABLETS BY MOUTH AT 3 PM 06/26/20142014 Inactive Diflucan 150 mg tablet RxNorm: 680469 1 Tablet(s) PO daily 06/19/2014 Inactive Promethazine VC 6.25 mg-5 mg/5 mL syrup RxNorm: 3411165 1-2 Teaspoon(s) PO Q6 PRN as needed 06/12/2014 07/21/2015 Inactive hydrocodone 7.5 mg-acetaminophen 325 mg tablet RxNorm: 567328 1 Tablet(s) PO q 6 hours prn for pain 06/03/2014 07/02/2014 Inactive Levaquin 500 mg tablet RxNorm: 898063 1 Tablet(s) PO daily 01/201506/05/2014 Inactive cyclobenzaprine 10 mg tablet RxNorm: 294939 Tablet(s) 1 TABLET(S) PO NEEDED TAKE 1 TABLET BY MOUTH EVERY 8 HOURS NEEDED 05/26/2014 No Stop Date Active cyclobenzaprine 10 mg tablet RxNorm: 022292 1 TABLET(S) PO NEEDED TAKE 1 TABLET BY MOUTH EVERY 8 HOURS NEEDED 05/26/2014 08/11/2014 Inactive Lasix 20 mg tablet RxNorm: 154672 Tablet(s) TABLET(S) PO TAKE 2 TABLETS BY MOUTH EVERY MORNING AND 2 TABLET BY MOUTH AT 3 PM 05/12/2014 06/25/2014 Inactive Combivent Respimat 20 mcg-100 mcg/actuation solution for inhalation RxNorm: 7765579 INHALE 1 PUFF BY MOUTH FOUR TIMES DAILY 05/12/2014 11/07/2014 Inactive fluconazole 150 mg tablet RxNorm: 800001 1 Tablet(s) PO UD 05/12/2014 Inactive 1 tab every other day x 5 doses Activella 0.5 mg-0.1 mg tablet RxNorm: 6230018 1 TABLET(S) PO DAILY TAKE 1 TABLET BY MOUTH DAILY FOR MENOPAUSAL SYMPTOM 05/02/2014 09/21/2015 Inactive hydrocodone 7.5 mg-acetaminophen 300 mg tablet RxNorm: 963617 Tablet(s) PO TAKE 1 TABLET BY MOUTH EVERY 6 HOURS NEEDED FOR PAIN 04/21/2014 06/03/2014 Inactive ( Appended: Controlled substance eRx refill - RxReferenceNumber: [id number]|1|0|1 ) Levaquin 500 mg tablet RxNorm: 937927 1 Tablet(s) PO daily 04/21/2014 Inactive Diflucan 150 mg tablet RxNorm: 320536 1 Tablet(s) PO every other day x 4 doses 04/10/2014 06/16/2014 Inactive Lasix 20 mg tablet RxNorm: 423034 TAKE 2 TABLETS BY MOUTH EVERY MORNING AND 1 TABLET BY MOUTH AT 3 PM 04/10/20142013 Inactive potassium chloride ER 10 mEq tablet,extended release RxNorm: 938767 1 TABLET(S) PO QDAY PRN TAKE WITH LASIX 04/09/2014 Inactive Levaquin 250 mg tablet RxNorm: 487894 1 Tablet(s) PO daily 08/201304/07/2014 Inactive 2 tabs today then 1 tab daily until gone atorvastatin 40 mg tablet RxNorm: 359782 1 Tablet(s) daily 1 TABLET(S) PO DAILY 03/25/2014 04/10/2016 Inactive TAKE 1 TABLET BY MOUTH DAILY (THIS IS AN INCREASE IN DOSAGE) Zofran 4 mg tablet RxNorm: 734190 1 Tablet(s) PO Q4-6H 201307/02/2014 Inactive Xanax 0.5 mg tablet RxNorm: 559851 TAKE 1 TABLET BY MOUTH THREE TIMES DAILY NEEDED 03/19/2014 04/17/2014 Inactive (Response to an electronic controlled substance refill request - RxReferenceNumber: [id number]|1|0|1) hydrocodone 7.5 mg-acetaminophen 300 mg tablet RxNorm: 940049 Tablet(s) PO TAKE 1 TABLET BY MOUTH EVERY 6 HOURS NEEDED FOR PAIN 03/19/2014 04/20/2014 Inactive ( Appended: Controlled substance eRx refill - RxReferenceNumber: [id number]|1|0|1 ) atorvastatin 40 mg tablet RxNorm: 982484 1 TABLET(S) PO DAILY 03/10/2014 03/24/2014 Inactive TAKE 1 TABLET BY MOUTH DAILY (THIS IS AN INCREASE IN DOSAGE) WelChol 625 mg tablet RxNorm: 374037 3 Tablet(s) PO BID 201303/06/2014 Inactive WelChol 625 mg tablet RxNorm: 253705 3 Tablet(s) PO BID 201307/04/2014 Inactive Lasix 20 mg tablet RxNorm: 723649 Tablet(s) TABLET(S) PO TAKE 2 TABLETS BY MOUTH EVERY MORNING AND 2 TABLET BY MOUTH AT 3 PM 03/03/2014 05/11/2014 Inactive Lasix 20 mg tablet RxNorm: 179542 TABLET(S) PO TAKE 2 TABLETS BY MOUTH EVERY MORNING AND 1 TABLET BY MOUTH AT 3 PM 02/20/2014 03/02/2014 Inactive gabapentin 600 mg tablet RxNorm: 265915 1.5 Tablet(s) PO TID 09/16/2014 Inactive Synthroid 88 mcg tablet RxNorm: 879313 1 TABLET(S) PO DAILY 05/18/2014 Inactive cyclobenzaprine 10 mg tablet RxNorm: 086738 1 TABLET(S) PO NEEDED TAKE 1 TABLET BY MOUTH EVERY 8 HOURS NEEDED 02/18/2014 05/25/2014 Inactive doxycycline hyclate 100 mg tablet RxNorm: 633088 1 Tablet(s) PO BID 02/13/2014 02/22/2014 Inactive Bactroban 2 % topical ointment RxNorm: 046146 1 Application TOP BID 02/13/2014 03/12/2014 Inactive Victoza 3-Babak 0.6 mg/0.1 mL (18 mg/3 mL) subcutaneous pen injector RxNorm: 815573 1.2 MILLIGRAM(S) SQ DAILY 0.6 X 2 WEEKS THEN INCREASE TO 1.2MG DAILY 02/10/2014 05/10/2014 Inactive albuterol sulfate 1.25 mg/3 mL solution for nebulization RxNorm: 689109 3 MILLILITER(S) INH TID 02/07/20142014 Inactive 1 box Victoza 3-Babak 0.6 mg/0.1 mL (18 mg/3 mL) subcutaneous pen injector RxNorm: 411072 1.8 Milligram(s) SQ daily 0.6 x 2 weeks then increase to 1.2mg daily 01/27/2014 05/26/2014 Inactive Levemir Flexpen 100 unit/mL (3 mL) solution subcutaneous insulin pen RxNorm: 660521 5units sq at hs, increase by 3 Unit(s) SQ at hs every 3days, goal FSBS 170 or less, do not increase above 20units, call doctor with report 01/27/2014 05/26/2014 Inactive hydrocodone 7.5 mg-acetaminophen 300 mg tablet RxNorm: 768965 Tablet(s) PO TAKE 1 TABLET BY MOUTH EVERY 6 HOURS NEEDED FOR PAIN 01/24/2014 03/18/2014 Inactive ( Appended: Controlled substance eRx refill - RxReferenceNumber: [id number]|1|0|1 ) Xanax 0.5 mg tablet RxNorm: 319646 1 Tablet(s) PO TID PRN as needed 01/24/2014 09/21/2014 Inactive (Appended: Controlled substance eRx refill - RxReferenceNumber: [id number]|1|0|1) Xanax 0.5 mg tablet RxNorm: 457287 TAKE 1 TABLET BY MOUTH THREE TIMES DAILY NEEDED 01/23/2014 02/21/2014 Inactive (Response to an electronic controlled substance refill request - RxReferenceNumber: [id number]|1|0|1) hydrocodone 5 mg-acetaminophen 325 mg tablet RxNorm: 997633 TAKE 1 TABLET BY MOUTH EVERY 6 HOURS NEEDED FOR PAIN 01/21/2014 02/19/2014 Inactive (Response to an electronic controlled substance refill request - RxReferenceNumber: [id number]| [id number]|1|0|1) Lasix 20 mg tablet RxNorm: 529614 TAKE 2 TABLETS BY MOUTH EVERY MORNING AND 1 TABLET BY MOUTH AT 3 PM 01/17/20142013 Inactive cyclobenzaprine 10 mg tablet RxNorm: 308039 1 Tablet(s) PO as needed TAKE 1 TABLET BY MOUTH EVERY 8 HOURS NEEDED 01/13/2014 02/17/2014 Inactive Anusol-HC 25 mg suppository RxNorm: 9364136 1 SUPPOSITORY RTL PRN ONE PER RECTUM NEEDED, UP TO TWICE DAILY FOR HEMORRHOID, NO MORE THAN 7 DAYS IN A ROW 01/10/2014 02/06/2014 Inactive Activella 0.5 mg-0.1 mg tablet RxNorm: 4356126 1 Tablet(s) PO daily TAKE 1 TABLET BY MOUTH DAILY FOR MENOPAUSAL SYMPTOM 01/08/2014 05/01/2014 Inactive gabapentin 600 mg tablet RxNorm: 402575 1.5 Tablet(s) PO TID 02/18/2014 Inactive gabapentin 600 mg tablet RxNorm: 689219 1.5 Tablet(s) PO TID 01/01/2014 Inactive hydrocodone 7.5 mg-acetaminophen 300 mg tablet RxNorm: 779988 Tablet(s) PO TAKE 1 TABLET BY MOUTH EVERY 6 HOURS NEEDED FOR PAIN 12/12/2013 01/23/2014 Inactive ( Appended: Controlled substance eRx refill - RxReferenceNumber: [id number]|1|0|1 ) Levaquin 250 mg tablet RxNorm: 425381 1 Tablet(s) PO daily 12/18/2013 Inactive 2 tabs today then 1 tab daily until gone Diflucan 150 mg tablet RxNorm: 119797 1 Tablet(s) PO daily 12/16/2013 Inactive do not stat until levaquin is completed Cartia XT 180 mg capsule,extended release RxNorm: 246093 1 CAPSULE(S) PO DAILY TAKE 1 CAPSULE BY MOUTH AT BEDTIME ..TAKE THIS IN ADDITION TO 240 MG IN THE MORNING 12/12/2013 12/06/2014 Inactive diltiazem ER (XR/XT) 240 mg capsule,extended release, controlled RxNorm: 675519 1 Capsule(s) PO daily TAKE 1 CAPSULE BY MOUTH EVERY DAY 11/28/2014 Inactive Effexor XR 37.5 mg capsule,extended release RxNorm: 090839 Capsule(s) PO TAKE 2 CAPSULES BY MOUTH EVERY MORNING AND 1 CAPSULE BY MOUTH EVERY NIGHT AT BEDTIME 12/04/2013 07/06/2014 Inactive Lasix 20 mg tablet RxNorm: TABLET(S) PO TAKE 2 TABLETS BY MOUTH EVERY MORNING AND 1 TABLET BY MOUTH AT 3 PM 12/04/2013 12/09/2014 Inactive Voltaren 1 % topical gel RxNorm: 949463 4 Gram(s) TOP QID 11/2703/26/2014 Inactive Cartia XT 180 mg capsule,extended release RxNorm: 597272 1 Capsule(s) PO daily TAKE 1 CAPSULE BY MOUTH AT BEDTIME ..TAKE THIS IN ADDITION TO 240 MG IN THE MORNING 11/27/2013 01/12/2015 Inactive Lasix 20 mg tablet RxNorm: TABLET(S) PO TAKE 2 TABLETS BY MOUTH EVERY MORNING AND 1 TABLET BY MOUTH AT 3 PM 11/26/2013 02/19/2014 Inactive colestipol 1 gram tablet RxNorm: 8177650 1 Tablet(s) PO BID TAKE 1 TABLET BY MOUTH TWICE DAILY 11/26/2013 11/20/2014 Inactive cyclobenzaprine 10 mg tablet RxNorm: 547987 Tablet(s) PO TAKE 1 TABLET BY MOUTH EVERY 8 HOURS NEEDED 11/21/20132013 Inactive Diflucan 150 mg tablet RxNorm: 838163 1 Tablet(s) PO daily TAKE 1 TABLET BY MOUTH EVERY OTHER DAY FOR 8 DOSES 11/14/201306/2013 Inactive peak flow meter-inh assist dev kit RxNorm: 1 dose Miscellaneous PRN 11/14/2013 10/27/2017 Inactive Effexor XR 37.5 mg capsule,extended release RxNorm: 970412 Capsule(s) PO TAKE 2 CAPSULES BY MOUTH EVERY MORNING AND 1 CAPSULE BY MOUTH EVERY NIGHT AT BEDTIME 11/04/2013 12/03/2013 Inactive Anusol-HC 25 mg suppository RxNorm: 1567426 1 Suppository RTL PRN one per rectum as needed, up to twice daily for hemorrhoid, no more than 7 days in a row 10/23/2013 10/22/2013 Inactive Anusol-HC 25 mg suppository RxNorm: 4382082 1 Suppository RTL PRN one per rectum as needed, up to twice daily for hemorrhoid, no more than 7 days in a row 10/23/2013 01/09/2014 Inactive Activella 0.5 mg-0.1 mg tablet RxNorm: 6897913 Tablet(s) PO TAKE 1 TABLET BY MOUTH DAILY FOR MENOPAUSAL SYMPTOM 10/21/2013 01/07/2014 Inactive cyclobenzaprine 10 mg tablet RxNorm: 925129 Tablet(s) PO TAKE 1 TABLET BY MOUTH EVERY 8 HOURS NEEDED 10/21/20132013 Inactive Lasix 20 mg tablet RxNorm: Tablet(s) PO TAKE 2 TABLETS BY MOUTH EVERY MORNING AND 1 TABLET BY MOUTH AT 3 PM 10/17/2013 02/25/2016 Inactive Bactroban 2 % topical ointment RxNorm: 202535 1 Application TOP BID 10/10/2013 11/06/2013 Inactive Zofran 4 mg tablet RxNorm: 619142 1 Tablet(s) PO Q4-6H 201303/20/2014 Inactive Bactroban 2 % topical ointment RxNorm: 988989 1 Application TOP BID 09/27/2013 10/09/2013 Inactive hydrocodone 5 mg-acetaminophen 325 mg tablet RxNorm: 590102 Tablet(s) PO TAKE 1 TABLET BY MOUTH EVERY 6 HOURS NEEDED FOR PAIN 09/26/2013 12/11/2013 Inactive ( Appended: Controlled substance eRx refill - RxReferenceNumber: [id number]|1|0|1 ) hydrocodone 5 mg-acetaminophen 325 mg tablet RxNorm: 164645 1 Tablet(s) PO Q6 PRN 09/26/2013 01/24/2014 Inactive cyclobenzaprine 10 mg tablet RxNorm: 878770 Tablet(s) PO TAKE 1 TABLET BY MOUTH EVERY 8 HOURS NEEDED 09/16/2013 No Stop Date Active omeprazole 20 mg capsule,delayed release RxNorm: 615015 Capsule(s) PO TAKE 1 CAPSULE BY MOUTH TWICE DAILY 09/02/2013 Inactive Lasix 20 mg tablet RxNorm: 015011 Tablet(s) PO TAKE 2 TABLETS BY MOUTH EVERY MORNING AND 1 TABLET BY MOUTH AT 3 PM 09/02/2013 04/10/2016 Inactive Diflucan 150 mg tablet RxNorm: 655339 Tablet(s) PO TAKE 1 TABLET BY MOUTH EVERY OTHER DAY FOR 8 DOSES 08/29/20132013 Inactive Effexor XR 37.5 mg capsule,extended release RxNorm: 053894 Capsule(s) PO TAKE 2 CAPSULES BY MOUTH EVERY MORNING AND 1 CAPSULE BY MOUTH EVERY NIGHT AT BEDTIME 08/29/2013 11/03/2013 Inactive diltiazem ER (XR/XT) 240 mg capsule,extended release, controlled RxNorm: 989280 Capsule(s) PO TAKE 1 CAPSULE BY MOUTH EVERY DAY 201312/03/2013 Inactive Xanax 0.5 mg tablet RxNorm: 152919 1 Tablet(s) PO TID PRN 11/2013 No Stop Date Active (Appended: Controlled substance eRx refill - RxReferenceNumber: [id number]| [id number]|1|0|1) colestipol 1 gram tablet RxNorm: 2844158 Tablet(s) PO TAKE 1 TABLET BY MOUTH TWICE DAILY 08/26/2013 11/25/2013 Inactive Victoza 3-Babak 0.6 mg/0.1 mL (18 mg/3 mL) subcutaneous pen injector RxNorm: 797401 1.2 Milligram(s) SQ daily 0.6 x 2 weeks then increase to 1.2mg daily 08/19/2013 12/16/2013 Inactive Synthroid 88 mcg tablet RxNorm: 508172 1 Tablet(s) PO daily 12/09/2013 Inactive Lasix 20 mg tablet RxNorm: Tablet(s) PO TAKE 2 TABLETS BY MOUTH EVERY MORNING AND 2 TABLETS BY MOUTH AT 3 PM 08/12/2013 10/18/2016 Inactive Xanax 0.5 mg tablet RxNorm: 145964 1 Tablet(s) PO TID PRN No Stop Date Active (Appended: Controlled substance eRx refill - RxReferenceNumber: [id number]| [id number]|1|0|1) Lasix 20 mg tablet RxNorm: Tablet(s) PO TAKE 2 TABLETS BY MOUTH EVERY MORNING AND 1 TABLET BY MOUTH AT 3 PM 08/07/2013 08/11/2013 Inactive Voltaren 1 % topical gel RxNorm: 148720 4 Gram(s) TOP QID 08/0111/26/2013 Inactive Zyvox 600 mg tablet RxNorm: 451669 1 Tablet(s) PO BID 201307/27/2013 Inactive please call the office is this is too expensive for the pt Zyvox 600 mg tablet RxNorm: 569803 1 Tablet(s) PO BID 201307/17/2013 Inactive hydrocodone 5 mg-acetaminophen 325 mg tablet RxNorm: 6884261 1 Tablet(s) PO Q6 PRN 07/15/2013 09/26/2013 Inactive Zofran 4 mg tablet RxNorm: 377895 1 Tablet(s) PO Q4-6H 201310/02/2013 Inactive Lasix 20 mg tablet RxNorm: 654394 Tablet(s) PO TAKE 2 TABLETS BY MOUTH EVERY MORNING AND 1 TABLET BY MOUTH AT 3 PM 07/11/2013 10/18/2016 Inactive cyclobenzaprine 10 mg tablet RxNorm: 891269 1 Tablet(s) PO Q8 PRN 06/27/2013 08/25/2013 Inactive gabapentin 600 mg tablet RxNorm: 513454 1.5 Tablet(s) PO TID 01/02/2014 Inactive Lasix 20 mg tablet RxNorm: 918661 Tablet(s) PO TAKE 2 TABLETS BY MOUTH EVERY MORNING AND 1 TABLET BY MOUTH AT 3 PM 06/17/2013 07/10/2013 Inactive hydrocodone 5 mg-acetaminophen 325 mg tablet RxNorm: 683788 1 Tablet(s) PO Q6 PRN 06/10/2013 07/14/2013 Inactive hydrocortisone 2.5 % rectal cream RxNorm: 908071 1 Suppository RTL BID PRN 06/10/2013 06/29/2013 Inactive Flexeril 10 mg tablet RxNorm: 523643 1 Tablet(s) PO Q8 PRN 06/0406/26/2013 Inactive diltiazem ER (XR/XT) 240 mg capsule,extended release, controlled RxNorm: 082889 Capsule(s) PO TAKE 1 CAPSULE BY MOUTH EVERY DAY 201310/26/2017 Inactive omeprazole 20 mg capsule,delayed release RxNorm: 282854 Capsule(s) PO TAKE 1 CAPSULE BY MOUTH TWICE DAILY 05/24/2013 Inactive colestipol 1 gram tablet RxNorm: 9555993 Tablet(s) PO TAKE 1 TABLET BY MOUTH TWICE DAILY 05/23/2013 04/21/2016 Inactive Januvia 100 mg tablet RxNorm: 609454 1 Tablet(s) PO daily 201308/18/2013 Inactive Activella 0.5 mg-0.1 mg tablet RxNorm: 876652 Tablet(s) PO TAKE 1 TABLET BY MOUTH DAILY FOR MENOPAUSAL SYMPTOM 05/17/2013 Inactive Xanax 0.5 mg tablet RxNorm: 956843 1 Tablet(s) PO TID PRN 08/06/2013 Inactive (Appended: Controlled substance eRx refill - RxReferenceNumber: [id number]| [id number]|1|0|1) Kenalog 40 mg/mL suspension for injection RxNorm: 3690557 Milliliter(s) Inj 05/07/2013 05/07/2013 Inactive levofloxacin 500 mg tablet RxNorm: 976290 1 Tablet(s) PO daily pt to take 500mg on day#1, 3, 5, 7 and 1/2 tablet on days 2, 4, 6, and 8 05/0705/14/2013 Inactive Lyrica 50 mg capsule RxNorm: 534842 1 Capsule(s) PO TID 201206/26/2013 Inactive hydrocodone 5 mg-acetaminophen 500 mg tablet RxNorm: 166837 1 Tablet(s) PO Q6 PRN 04/22/2013 06/09/2013 Inactive Zofran 4 mg tablet RxNorm: 123391 1 Tablet(s) PO Q4-6H 201207/14/2013 Inactive Zofran 4 mg tablet RxNorm: 114951 1 Tablet(s) PO Q6 PRN 04/0404/08/2013 Inactive hydrocodone 5 mg-acetaminophen 500 mg tablet RxNorm: 413070 1 Tablet(s) PO Q6 PRN 03/21/2013 04/21/2013 Inactive Diflucan 150 mg tablet RxNorm: 840760 1 Tablet(s) PO every other day 1 pill po every other day x 8 doses 03/19/201306/26 Inactive potassium chloride ER 10 mEq tablet,extended release RxNorm: 364354 1 Tablet(s) PO QDAY PRN take with lasix 03/07/201302/2014 Inactive potassium chloride ER 10 mEq tablet,extended release RxNorm: 266293 1 Tablet(s) PO QDAY PRN take with lasix 03/04/2013 Inactive fluconazole 150 mg tablet RxNorm: 434383 1 Tablet(s) PO daily 03/01/2013 02/28/2013 Inactive fluconazole 150 mg tablet RxNorm: 024064 1 Tablet(s) PO daily 03/01/2013 03/05/2013 Inactive Combivent 18 mcg-103 mcg/actuation Aerosol Inhaler RxNorm: 253523 2 Puff(s) INH QID 02/12/2013 02/12/2013 Inactive Zofran 4 mg tablet RxNorm: 711705 1 Tablet(s) PO Q6 PRN 02/1104/03/2013 Inactive Lasix 20 mg tablet RxNorm: 433824 1 Tablet(s) PO BID one pill in morning and one pill in afternoon (3pm) 02/04/2013 Inactive Xopenex HFA 45 mcg/actuation Aerosol Inhaler RxNorm: 140892 2 INH QID 01/29/2013 09/21/2015 Inactive Effexor XR 37.5 mg capsule,extended release RxNorm: 909641 2 q am and 1 at hs Capsule(s) PO TAKE 2 CAPSULES BY MOUTH EVERY MORNING AND 1 CAPSULE EVERY NIGHT AT BEDTIME 01/29/2013 02/15/2016 Inactive fluconazole 150 mg tablet RxNorm: 996173 1 Tablet(s) PO daily 01/29/2013 02/02/2013 Inactive hydrocodone 5 mg-acetaminophen 500 mg tablet RxNorm: 480405 1 Tablet(s) PO Q6 PRN 01/29/2013 03/20/2013 Inactive Effexor XR 37.5 mg capsule,extended release RxNorm: 639921 Capsule(s) PO 01/29/2013 08/28/2013 Inactive TAKE 2 CAPSULES BY MOUTH EVERY MORNING AND 1 CAPSULE EVERY NIGHT AT BEDTIME doxycycline hyclate 100 mg tablet RxNorm: 683021 1 Tablet(s) PO BID 01/01/2013 01/10/2013 Inactive doxycycline hyclate 100 mg tablet RxNorm: 479468 1 Tablet(s) PO BID 01/01/2013 12/31/2012 Inactive Synthroid 75 mcg tablet RxNorm: 340787 1 Tablet(s) PO daily 06/29/2013 Inactive Synthroid 75 mcg tablet RxNorm: 769491 1 Tablet(s) PO daily 12/31/2012 Inactive Xanax 0.5 mg tablet RxNorm: 177708 Tablet(s) PO TAKE 1/2 TO 1 TABLET BY MOUTH EVERY 8 HOURS NEEDED FOR ANXIETY 12/27/2012 05/06/2013 Inactive (Appended: Controlled substance eRx refill - RxReferenceNumber: [id number]|1|0|1) Lasix 20 mg tablet RxNorm: 725553 1 Tablet(s) PO daily 201202/03/2013 Inactive Santyl 250 unit/gram Topical Ointment RxNorm: 2007020 1 Application TOP daily 12/20/2012 12/29/2012 Inactive Levaquin 500 mg tablet RxNorm: 805677 1 Tablet(s) PO daily 05/201212/26/2012 Inactive acyclovir 400 mg tablet RxNorm: 098392 1 Tablet(s) PO TID 12/0312/09/2012 Inactive acyclovir 400 mg tablet RxNorm: 817628 1 Tablet(s) PO TID 12/0312/02/2012 Inactive fluconazole 150 mg tablet RxNorm: 339029 1 Tablet(s) PO daily 11/26/2012 11/30/2012 Inactive Effexor XR 37.5 mg capsule,extended release RxNorm: 298227 Capsule(s) PO TAKE 2 CAPSULES BY MOUTH EVERY MORNING AND 1 CAPSULE EVERY NIGHT AT BEDTIME 11/14/2012 01/28/2013 Inactive albuterol sulfate 1.25 mg/3 mL solution for nebulization RxNorm: 686026 3 Milliliter(s) INH TID 10/29/20122012 Inactive 1 box Cartia XT 180 mg capsule,extended release RxNorm: 085847 1 Capsule(s) PO daily TAKE 1 CAPSULE BY MOUTH AT BEDTIME ..TAKE THIS IN ADDITION TO 240 MG IN THE MORNING 10/29/2012 11/26/2013 Inactive acyclovir 800 mg tablet RxNorm: 125447 1 Tablet(s) PO BID 10/2911/04/2012 Inactive Diflucan 150 mg tablet RxNorm: 803412 1 Tablet(s) PO daily 10/14/2012 Inactive TAKE 1 TABLET BY MOUTH EVERY DAY Toprol XL 100 mg tablet,extended release RxNorm: 749159 1 Tablet(s) PO BID 10/11/2012 09/05/2013 Inactive Zithromax Z-Babak 250 mg tablet RxNorm: 333347 Tablet(s) PO UD as directed. 1 refill , please take back to back 10/05/2012 No Stop Date Active Kenalog 40 mg/mL Susp for Injection RxNorm: 7265929 1 Milliliter(s) Inj QID 09/21/2012 05/07/2013 Inactive fluconazole 150 mg tablet RxNorm: 838112 1 Tablet(s) PO every other day x 5 doses 09/12/2012 11/25/2012 Inactive levothyroxine 50 mcg tablet RxNorm: 325108 1 Tablet(s) PO daily 09/06/2012 12/31/2012 Inactive atorvastatin 40 mg tablet RxNorm: 003242 1 Tablet(s) PO daily 09/06/2012 08/31/2013 Inactive TAKE 1 TABLET BY MOUTH DAILY (THIS IS AN INCREASE IN DOSAGE) Xanax 0.5 mg tablet RxNorm: 409699 Tablet(s) PO TAKE 1/2 TO 1 TABLET BY MOUTH EVERY 8 HOURS NEEDED FOR ANXIETY 08/27/2012 12/26/2012 Inactive (Appended: Controlled substance eRx refill - RxReferenceNumber: [id number]|1|0|1) Zofran 4 mg tablet RxNorm: 542034 1 Tablet(s) PO Q6 PRN 08/1302/10/2013 Inactive Cipro 500 mg tablet RxNorm: 608869 1 Tablet(s) PO BID 201208/07/2012 Inactive Cipro 500 mg tablet RxNorm: 027437 1 Tablet(s) PO BID 201208/12/2012 Inactive Flagyl 500 mg tablet RxNorm: 565639 1 Tablet(s) PO TID 201208/12/2012 Inactive cefdinir 300 mg capsule RxNorm: 682981 1 Capsule(s) PO BID 08/201207/29/2012 Inactive nystatin 100,000 unit/mL Oral Susp RxNorm: 011839 6 Unit(s) PO QID 07/06/2012 07/15/2012 Inactive Kenalog 40 mg/mL Susp for Injection RxNorm: 9971579 1 Milliliter(s) Inj 07/06/2012 07/06/2012 Inactive Zithromax 500 mg tablet RxNorm: 7416742 1 Tablet(s) PO daily 07/10/2012 Inactive metformin 850 mg tablet RxNorm: 850732 1/2 Tablet(s) PO TID 09/201208/24/2012 Inactive TAKE 1 TABLET BY MOUTH IN THE MORNING, 1/2 TABLET AT NOON, AND 1 TABLET IN THE EVENING Lyrica 50 mg capsule RxNorm: 476206 1 Capsule(s) PO TID 201206/25/2012 Inactive Diflucan 150 mg tablet RxNorm: 898608 1 Tablet(s) PO daily 05/201206/25/2012 Inactive TAKE 1 TABLET BY MOUTH EVERY DAY Levaquin 500 mg tablet RxNorm: 350167 1 Tablet(s) PO daily 06/19/2012 Inactive Pneumovax 23 25 mcg/0.5 mL Injection RxNorm: 198901 1/2 Milliliter(s) Inj 06/07/2012 06/07/2012 Inactive metformin 850 mg tablet RxNorm: 969530 1/2 Tablet(s) PO BID 06/25/2012 Inactive TAKE 1 TABLET BY MOUTH IN THE MORNING, 1/2 TABLET AT NOON, AND 1 TABLET IN THE EVENING cefdinir 300 mg capsule RxNorm: 373375 1 Capsule(s) PO BID 02/201305/30/2012 Inactive cefdinir 300 mg capsule RxNorm: 548533 1 Capsule(s) PO BID 02/201306/06/2012 Inactive prednisone 10 mg tablets in a dose pack RxNorm: 607531 Tablet(s) PO UD 6-5-4-3-2- 1 05/31/2012 05/06/2013 Inactive Cipro 500 mg tablet RxNorm: 080489 1 Tablet(s) PO BID 201206/03/2012 Inactive Xanax 0.5 mg tablet RxNorm: 749460 Tablet(s) PO TAKE 1/2 TO 1 TABLET BY MOUTH EVERY 8 HOURS NEEDED FOR ANXIETY 05/28/2012 08/27/2012 Inactive (Appended: Controlled substance eRx refill - RxReferenceNumber: [id number]|1|0|1) Cartia XT 180 mg capsule,extended release RxNorm: 223470 Capsule(s) PO TAKE 1 CAPSULE BY MOUTH AT BEDTIME ..TAKE THIS IN ADDITION TO 240 MG IN THE MORNING 05/24/2012 10/28/2012 Inactive Diflucan 150 mg tablet RxNorm: 937836 1 Tablet(s) PO daily 06/201205/26/2012 Inactive TAKE 1 TABLET BY MOUTH EVERY DAY Cartia XT 240 mg capsule,extended release RxNorm: 362686 1 Capsule(s) PO QAM 05/23/2012 09/06/2012 Inactive in addition to 180mg q pm omeprazole 20 mg capsule,delayed release RxNorm: 153825 Capsule(s) PO TAKE 1 CAPSULE BY MOUTH TWICE DAILY 05/21/2012 Inactive diltiazem ER (XR/XT) 240 mg capsule,extended release, controlled RxNorm: 817784 1 Capsule(s) PO daily TAKE ONE CAPSULE BY MOUTH EVERY DAY 05/21/2012 05/30/2013 Inactive Toprol XL 25 mg tablet,extended release RxNorm: 353882 1 Tablet(s) PO QPM take with 50mg (1/2 tab of 100mg) each evening. Continue 100mg in the morning. 05/17/2012 05/27/2012 Inactive Activella 0.5 mg-0.1 mg tablet RxNorm: 1494759 Tablet(s) PO TAKE 1 TABLET BY MOUTH DAILY FOR MENOPAUSAL SYMPTOM 05/09/2012 05/16/2013 Inactive colestipol 1 gram tablet RxNorm: 4599245 Tablet(s) PO TAKE 1 TABLET BY MOUTH TWICE DAILY 05/08/2012 04/21/2016 Inactive Kenalog 40 mg/mL Susp for Injection RxNorm: 7144648 1 Milliliter(s) Inj 05/02/2012 05/02/2012 Inactive Xanax 0.5 mg tablet RxNorm: 917746 Tablet(s) PO 04/16/2012 05/28/2012 Inactive TAKE 1/2 TO 1 TABLET BY MOUTH EVERY 8 HOURS NEEDED FOR ANXIETY (Appended: Controlled substance eRx refill - RxReferenceNumber: [id number]|1|0|1) Diflucan 150 mg tablet RxNorm: 177881 1 Tablet(s) PO daily 05/22/2012 Inactive TAKE 1 TABLET BY MOUTH EVERY DAY Cipro 500 mg tablet RxNorm: 371353 1 Tablet(s) PO BID 201104/19/2012 Inactive Zithromax Z-Babak 250 mg tablet RxNorm: 093720 Tablet(s) PO UD 05/30/2012 Inactive metformin 850 mg tablet RxNorm: 631241 Tablet(s) PO take one pill by mouth in AM, 1/2 at noon, and 1 pill in the evening. 03/16/2012 06/06/2012 Inactive TAKE 1 TABLET BY MOUTH IN THE MORNING, 1/2 TABLET AT NOON, AND 1 TABLET IN THE EVENING Xanax 0.5 mg tablet RxNorm: 122956 Tablet(s) PO 03/05/2012 04/15/2012 Inactive TAKE 1/2 TO 1 TABLET BY MOUTH EVERY 8 HOURS NEEDED FOR ANXIETY (Appended: Controlled substance eRx refill - RxReferenceNumber: [id number]|1|0|1) potassium chloride ER 10 mEq tablet,extended release RxNorm: 382753 1 Tablet(s) PO QDAY PRN take with lasix 03/05/201204/2013 Inactive potassium chloride ER 10 mEq tablet,extended release RxNorm: 679497 1 Tablet(s) PO QDAY PRN take with lasix 02/28/2012 Inactive Lasix 20 mg tablet RxNorm: 435448 Tablet(s) PO QDAY PRN 02/2708/25/2012 Inactive doxycycline hyclate 100 mg capsule RxNorm: 392233 1 Capsule(s) PO BID 02/27/2012 03/04/2012 Inactive Effexor XR 37.5 mg capsule,extended release RxNorm: 346193 Capsule(s) PO 02/26/2012 01/28/2013 Inactive TAKE 2 CAPSULES BY MOUTH EVERY MORNING AND 1 CAPSULE EVERY NIGHT AT BEDTIME Lomotil 2.5 mg-0.025 mg tablet RxNorm: 8702672 Tablet(s) PO 07/201103/05/2012 Inactive 1 after each loose bm limit 4 per day doxycycline hyclate 100 mg capsule RxNorm: 162960 1 Capsule(s) PO BID 02/15/2012 02/21/2012 Inactive Diflucan 150 mg tablet RxNorm: 276641 Tablet(s) PO daily 201102/21/2012 Inactive TAKE 1 TABLET BY MOUTH EVERY DAY colestipol,micronized 1 gram tablet RxNorm: 4154952 Tablet(s) PO 02/06/2012 04/21/2016 Inactive TAKE 1 TABLET BY MOUTH TWICE DAILY Effexor XR 37.5 mg capsule,extended release RxNorm: 105870 Capsule(s) PO 02/06/2012 02/16/2016 Inactive TAKE 2 CAPSULES BY MOUTH EVERY MORNING AND 1 CAPSULE EVERY NIGHT AT BEDTIME potassium chloride ER 10 mEq tablet,extended release RxNorm: 638671 1 Tablet(s) PO QDAY PRN take with lasix 02/01/201212/2011 Inactive Levaquin 500 mg tablet RxNorm: 613651 1 Tablet(s) PO daily 04/201202/07/2012 Inactive Diflucan 150 mg tablet RxNorm: 680232 Tablet(s) PO 01/27/2012 02/14/2012 Inactive TAKE 1 TABLET BY MOUTH EVERY DAY Effexor XR 37.5 mg capsule,extended release RxNorm: 575619 Capsule(s) PO 01/05/2012 02/05/2012 Inactive TAKE 2 CAPSULES BY MOUTH EVERY MORNING , AND 1 CAPSULE BY MOUTH EVERY NIGHT AT BEDTIME Effexor XR 37.5 mg capsule,extended release RxNorm: 169201 Capsule(s) PO 12/29/2011 01/04/2012 Inactive TAKE 2 CAPSULES BY MOUTH EVERY MORNING , AND 1 CAPSULE BY MOUTH EVERY NIGHT AT BEDTIME Diflucan 150 mg tablet RxNorm: 399419 Tablet(s) PO 12/29/2011 04/09/2012 Inactive TAKE 1 TABLET BY MOUTH EVERY DAY Cipro 500 mg tablet RxNorm: 174453 1 Tablet(s) PO BID 201101/07/2012 Inactive Toprol XL 100 mg tablet,extended release RxNorm: 792547 Tablet(s) PO as doctor directed one tab in am and 1/2 at night 11/30/2011 10/10/2012 Inactive Phenergan 25 mg/mL Injection RxNorm: 944649 Milliliter(s) Inj 11/30/2011 11/30/2011 Inactive Toprol XL 100 mg 24 hr Tab RxNorm: 505482 1.5 Tablet(s) PO as doctor directed one tab in am and 1/2 at night 11/17/201102/2012 Inactive Xopenex HFA 45 mcg/actuation Aerosol Inhaler RxNorm: 536334 2 INH QID 11/08/2011 12/01/2012 Inactive Effexor XR 150 mg 24 hr Cap RxNorm: 697361 1 Capsule(s) PO daily 10/24/2011 01/04/2012 Inactive Xanax 0.5 mg tablet RxNorm: 872287 1/2-1 Tablet(s) PO Q8 PRN 10/20/2011 03/05/2012 Inactive levothyroxine 25 mcg tablet RxNorm: 725191 Tablet(s) PO 201109/05/2012 Inactive TAKE 1 TABLET BY MOUTH DAILY Xanax 0.5 mg Tab RxNorm: 490662 1/2-1 Tablet(s) PO Q8 PRN 09/26/2011 10/19/2011 Inactive potassium chloride ER 10 mEq Tab RxNorm: 050987 1 Tablet(s) PO daily 09/20/2011 09/24/2011 Inactive Lasix 20 mg Tab RxNorm : 757868 1 Tablet(s) PO daily 09/20/2011 09/24/2011 Inactive Xanax 0.5 mg Tab RxNorm: 724336 1/2-1 Tablet(s) PO Q8 PRN 09/12/2011 09/25/2011 Inactive Xanax 0.5 mg Tab RxNorm: 346822 1/2-1 Tablet(s) PO Q8 PRN 08/24/2011 09/11/2011 Inactive Lipitor 20 mg tablet RxNorm: 812958 Tablet(s) PO 08/22/2011 09/05/2012 Inactive TAKE 1 TABLET BY MOUTH DAILY (THIS IS AN INCREASE IN DOSAGE) Cipro 500 mg Tab RxNorm: 072305 1 Tablet(s) PO BID 201110/24/2011 Inactive Flagyl 500 mg Tab RxNorm: 568025 1 Tablet(s) PO TID 201110/24/2011 Inactive Diflucan 150 mg Tab RxNorm: 763373 1 Tablet(s) PO daily 201110/24/2011 Inactive Kenalog 40 mg/mL Susp for Injection RxNorm: 3243680 1 Milliliter(s) Inj 08/01/2011 10/24/2011 Inactive FreeStyle Lancets RxNorm: 1 test Miscellaneous TID 201107/08/2014 Inactive dispense quantity sufficient for three times daily testing for diabetes FreeStyle Test strips RxNorm: 1 Miscellaneous BID 07/21/2011 08/13/2012 Inactive please give lancets alsodx 250.02 Xanax 0.25 mg Tab RxNorm: 542367 1 Tablet(s) PO Q8 PRN 07/06 No Stop Date Active colestipol 1 gram Tab RxNorm: 7819603 Tablet(s) PO 07/04/2011 04/21/2016 Inactive TAKE 1 TABLET BY MOUTH TWICE DAILY DIRECTED colestipol 1 gram tablet RxNorm: 6718321 1 Tablet(s) PO BID 07/03/2011 Inactive Cartia XT 180 mg capsule,extended release RxNorm: 343236 1 Capsule(s) PO QHS 06/30/2011 11/16/2011 Inactive in addition to 240mg q am venlafaxine 37.5 mg Tab RxNorm: 002553 1 Tablet(s) PO BID 06/2406/29/2011 Inactive prednisone 5 mg Tab RxNorm: 814829 Tablet(s) PO UD 2011 10/24/2011 Inactive six day taper #21 Lyrica 50 mg capsule RxNorm: 954990 1 Capsule(s) PO TID 201108/18/2011 Inactive Diflucan 150 mg tablet RxNorm: 693397 1 Tablet(s) PO daily 06/24/2011 Inactive levofloxacin 500 mg Tab RxNorm: 025828 1 Tablet(s) PO daily 08/15/2011 Inactive azithromycin 250 mg Tab RxNorm: 967166 PO 05/23/2011 06/20/2011 Inactive omeprazole 20 mg capsule,delayed release RxNorm: 515606 Capsule(s) PO 05/10/2011 05/20/2012 Inactive TAKE 1 CAPSULE BY MOUTH TWICE DAILY;Patient requests 90 day supply diltiazem ER (XR/XT) 240 mg capsule,extended release, controlled RxNorm: 986461 Capsule(s) PO 04/19/2011 05/21/2012 Inactive TAKE 1 CAPSULE BY MOUTH EVERY MORNING;Patient requests 90 day supply Kenalog 40 mg/mL Susp for Injection RxNorm: 0448043 1 Milliliter(s) Inj 04/18/2011 06/20/2011 Inactive clindamycin 300 mg Cap RxNorm: 748108 1 Capsule(s) PO BID 04/1806/20/2011 Inactive lisinopril-hydrochlorothiazide 20 mg-12.5 mg Tab RxNorm: 247331 2 Tablet(s) PO daily 04/18/2011 10/24/2011 Inactive fluconazole 150 mg Tab RxNorm: 151735 1 Tablet(s) PO daily 07/201006/20/2011 Inactive Activella 0.5 mg-0.1 mg tablet RxNorm: 3151239 Tablet(s) PO 05/201005/08/2012 Inactive TAKE 1 TABLET BY MOUTH DAILY FOR MENOPAUSAL SYMPTOM diltiazem ER (XR/XT) 240 mg Continuous Release Cap RxNorm: 683045 1 Capsule(s) PO daily 03/17/2011 03/16/2011 Inactive diltiazem ER (XR/XT) 240 mg Continuous Release Cap RxNorm: 828017 Capsule(s) PO 03/17/2011 06/20/2011 Inactive TAKE 1 CAPSULE BY MOUTH EVERY MORNING metformin 850 mg tablet RxNorm: 593376 1 Tablet(s) PO as doctor directed take one pill by mouth in AM, 1/2 at noon, and 1 pill in the evening. 01/21/2011 04/20/2011 Inactive Xopenex 1.25 mg/3 mL solution for nebulization RxNorm: 067636 3 Milliliter(s) INH Q6 PRN No Start Date Active Novolog Flexpen U-100 Insulin aspart 100 unit/mL subcutaneous RxNorm: 8613448 10 units with meals plus SSI in [...] 301-325 Lomotil 2.5 mg-0.025 mg tablet RxNorm: 0887185 Tablet(s) PO No Start Date 02/21/2012 Inactive 1 after each loose bm limit 4 per day Novolog Flexpen U-100 Insulin aspart 100 unit/mL subcutaneous RxNorm: 6601219 10 Unit(s) SQ AC No Start Date 10/26 Inactive with sliding scale-Dr Yanna Judd FlexTouch U-100 100 unit/mL (3 mL) subcutaneous insulin pen RxNorm: 8704838 40 Unit(s) SQ daily No Start Date Inactive gabapentin 600 mg tablet RxNorm: 146955 1 Tablet(s) PO TID No Start Date 06/26/2013 Inactive Effexor XR 37.5 mg capsule,extended release RxNorm: 191893 1 Capsule(s) PO BID No Start Date 10/23/2011 Inactive Levemir FlexTouch 100 unit/mL (3 mL) subcutaneous insulin pen RxNorm: 081521 50 Unit(s) SQ BID No Start Date 04/24/2017 Inactive Combivent Respimat 20 mcg-100 mcg/actuation solution for inhalation RxNorm: 2723990 1 INH QID No Start Date 05/11/2014 Inactive Xanax 0.5 mg Tab RxNorm: 002328 1/2-1 Tablet(s) PO Q8 PRN No Start Date 08/23/2011 Inactive Xopenex HFA 45 mcg/actuation Aerosol Inhaler RxNorm: 786402 2 INH QID No Start Date 11/07/2011 Inactive promethazine 25 mg tablet RxNorm: 200374 1 Tablet(s) PO Q8 as needed No Start Date 08/12/2015 Inactive colestipol 1 gram Tab RxNorm: 5768242 1 Tablet(s) PO BID No Start Date 07/03/2011 Inactive Cartia XT 240 mg capsule,extended release RxNorm: 587182 1 Capsule(s) PO QAM No Start Date 05/22/2012 Inactive in addition to 180mg q pm Lipitor 20 mg Tab RxNorm: 997624 1 Tablet(s) PO daily No Start Date 08/21/2011 Inactive FreeStyle Test Strips RxNorm: 1 Miscellaneous BID No Start Date 07/20/2011 Inactive Jerry Marley U-300 Insulin 300 unit/mL (1.5 mL) subcutaneous pen RxNorm: 1274797 40 Unit(s) SQ BID No Start Date 10/26/2017 Inactive Diflucan 150 mg tablet RxNorm: 581850 1 Tablet(s) PO daily 1 pill po every other day x 8 doses No Start Date 03/18/2013 Inactive hydrocodone 5 mg-acetaminophen 500 mg tablet RxNorm: 228435 1 Tablet(s) PO Q6 PRN No Start Date 01/28/2013 Inactive Lasix 20 mg tablet RxNorm: 670401 Tablet(s) PO QDAY PRN No Start Date 02/27/2012 Inactive Promethazine VC 6.25 mg-5 mg/5 mL Syrup RxNorm: 1576117 1-2 PO Q6 PRN No Start Date 10/07/2013 Inactive promethazine 25 mg tablet RxNorm: 766070 1 Tablet(s) PO Q6 PRN No Start Date 02/09/2017 Inactive digoxin 125 mcg tablet RxNorm: 594842 1 Tablet(s) PO daily No Start Date 06/20/2017 Inactive Xanax 0.25 mg Tab RxNorm: 115940 1 Tablet(s) PO Q8 PRN No Start Date 07/05/2011 Inactive Diflucan 150 mg tablet RxNorm: 327500 1 Tablet(s) PO every other day x 4 doses No Start Date 04/09/2014 Inactive Carafate 100 mg/mL Oral Susp RxNorm: 362673 2 Teaspoon(s) PO daily No Start Date 10/24/2011 Inactive prednisone 5 mg Tab RxNorm: 040478 Tablet(s) PO UD No Start Date 06/22/2011 Inactive six day taper #21 Tessalon Perles 100 mg capsule RxNorm: 657450 2 Capsule(s) PO TID as needed No Start Date 05/16/2017 Inactive Bactroban 2 % topical ointment RxNorm: 418952 1 Application TOP BID No Start Date 09/26/2013 Inactive Phenergan 25 mg tablet RxNorm: 403248 1 Tablet(s) PO Q8 as needed nausea No Start Date 06/28/2015 Inactive flecainide 50 mg tablet RxNorm: 648286 1 Tablet(s) PO BID No Start Date 02/01/2016 Inactive Activella 0.5 mg-0.1 mg Tab RxNorm: 6720633 1 Tablet(s) PO daily No Start Date 03/21/2011 Inactive hydrocodone 10 mg-acetaminophen 325 mg tablet RxNorm: 326968 1 Tablet(s) PO Q6 as needed No Start Date 02/04/2016 Inactive lisinopril 20 mg Tab RxNorm: 966269 1 Tablet(s) PO daily No Start Date 06/20/2011 Inactive prednisone 10 mg tablets in a dose pack RxNorm: 714852 Tablet(s) PO UD 6-5-4-3-2- 1 No Start Date 05/30/2012 Inactive hydrocodone 7.5 mg-acetaminophen 325 mg tablet RxNorm: 183138 1 Tablet(s) PO Q6 PRN No Start Date 10/06/2013 Inactive hyoscyamine 0.125 mg sublingual tablet RxNorm: 6131290 1 Tablet(s) SL TID as needed No Start Date 05/16/2017 Inactive Cartia XT 180 mg 24 hr Cap RxNorm: 630229 1 Capsule(s) PO QHS No Start Date 06/29/2011 Inactive in addition to 240mg q am Zofran 4 mg tablet RxNorm: 526274 1 Tablet(s) PO Q6 PRN No Start Date 08/12/2012 Inactive omeprazole 20 mg Cap, Delayed Release RxNorm: 811564 1 Capsule(s) PO BID No Start Date 05/09/2011 Inactive venlafaxine 37.5 mg Tab RxNorm: 507625 1 Tablet(s) PO BID No Start Date 10/24/2011 Inactive Vesicare 10 mg tablet RxNorm: 978833 1 Tablet(s) PO daily No Start Date 09/28/2015 Inactive levothyroxine 25 mcg Tab RxNorm: 481316 1 Tablet(s) PO daily No Start Date 10/18/2011 Inactive Zithromax Z-Babak 250 mg tablet RxNorm: 194237 Tablet(s) PO UD No Start Date 04/01/2012 Inactive Januvia 100 mg tablet RxNorm: 641000 1 Tablet(s) PO daily No Start Date 05/22/2013 Inactive Lantus Solostar 100 unit/mL (3 mL) subcutaneous insulin pen RxNorm: 241437 Unit( s) SQ No Start Date 04/17/2017 Inactive 10 units q am and 50units at night fluconazole 150 mg tablet RxNorm: 991924 1 Tablet(s) PO every other day x 5 doses No Start Date 09/11/2012 Inactive Toprol XL 25 mg 24 hr Tab RxNorm: 738470 1 Tablet(s) PO daily No Start Date 11/16/2011 Inactive Medication Administered Medication Codes Instructions Start Date Status Kenalog 40 mg/mL suspension for injection RxNorm: 4188915 Milliliter 06/26/2015 No longer Active Kenalog 40 mg/mL suspension for injection RxNorm: 7470046 Milliliter 05/07/2013 No longer Active Kenalog 40 mg/mL Susp for Injection RxNorm: 6313496 1Milliliter 07/06/2012 No longer Active Pneumovax 23 25 mcg/0.5 mL Injection RxNorm: 894870 1/2Milliliter 06/07/2012 No longer Active Kenalog 40 mg/mL Susp for Injection RxNorm: 9416459 1Milliliter 05/02/2012 No longer Active Phenergan 25 mg/mL Injection RxNorm: 646198 Milliliter 11/30/2011 No longer Active Immunizations Vaccine [...] 26.2 pg 02/20/2018 Cbc With Differential Ord2 [place]% 5.7 % 02/20/2018 Cbc With Differential Ord2 [...] 1.61 K/ul 02/20/2018 Cbc With Differential Ord2 [place] ABS# 0.5 K/ul 02/20/2018 Cbc With Differential Ord2 Eos ABS# 0.1 K/ul 02/20/2018 Cbc With Differential Ord2 Baso ABS# 0.0 K/ul 02/20/2018 Comp Metabolic Pjt931 NA 134 mEq/L 02/20/2018 Comp Metabolic Qko897 K 3.9 mEq/L 02/20/2018 Comp Metabolic Jkz297 CL 90 mEq/L 02/20/2018 Comp Metabolic Yav830 CO2 32.0 mEq/L 02/20/2018 Comp Metabolic Ckj965 ANION GAP 16 02/20/2018 Comp Metabolic Std828 GLUCOSE 287 mg/dL 02/20/2018 Comp Metabolic Pyk720 Creat 0.8 mg/dL 02/20/2018 Comp Metabolic Xyk201 eGFR 72 ml/min/1.73m2 02/20/2018 Comp Metabolic Ume055 BUN 13 mg/dL 02/20/2018 Comp Metabolic Zff512 B/C Ratio 15.5 Ratio 02/20/2018 Comp Metabolic Nsu164 CALCIUM 9.0 mg/dL 02/20/2018 Comp Metabolic Ipt007 ALK PHOS 120 U/L 02/20/2018 Comp Metabolic Duh975 AST(SGOT) 21 U/L 02/20/2018 Comp Metabolic Bln413 ALT(SGPT) 17 U/L 02/20/2018 Comp Metabolic Tau977 BILI T 0.4 mg/dL 02/20/2018 Comp Metabolic Nbp561 ALBUMIN 3.8 g/dL 02/20/2018 Comp Metabolic Hfb028 TPRO 6.9 g/dL 02/20/2018 Comp Metabolic Lfv159 GLOB 3.1 g/dL 02/20/2018 Comp Metabolic Sue707 A/G Ratio 1.3 Ratio 02/20/2018 Comp Metabolic Kee488 Osmo 279 mOsmo 02/20/2018 Vitamin D 25 Oh Wts3259 VITAMIN D, 25 HYDROXY 26.48 ng/mL Digoxin Ord9 DIGOXIN 0.7 NG/ML 02/20/2018 Culture Urine [id number] URINE CULTURE SEE NOTES 12/01/2017 Urine Culture Ucult Complete >100,000 col/ml aerobic growth sent to ref lab 11/29/2017 Comp Metabolic Ovl423 NA 135 mEq/L 08/21/2017 Comp Metabolic Ywt908 K 4.6 mEq/L 08/21/2017 Comp Metabolic Zar500 CL 92 mEq/L 08/21/2017 Comp Metabolic Wfz562 CO2 32.0 mEq/L 08/21/2017 Comp Metabolic Bxt737 ANION GAP 16 08/21/2017 Comp Metabolic Reh326 GLUCOSE 298 mg/dL 08/21/2017 Comp Metabolic Xzk959 Creat 1.1 mg/dL 08/21/2017 Comp Metabolic Kla437 eGFR 54 ml/min/1.73m2 08/21/2017 Comp Metabolic Ybk607 BUN 22 mg/dL 08/21/2017 Comp Metabolic Fcb138 B/C Ratio 20.6 Ratio 08/21/2017 Comp Metabolic Mja494 CALCIUM 9.3 mg/dL 08/21/2017 Comp Metabolic Oqf877 ALK PHOS 145 U/L 08/21/2017 Comp Metabolic Lrl569 AST(SGOT) 31 U/L 08/21/2017 Comp Metabolic Pai759 ALT(SGPT) 19 U/L 08/21/2017 Comp Metabolic Fsh887 BILI T 0.3 mg/dL 08/21/2017 Comp Metabolic Fox561 ALBUMIN 3.8 g/dL 08/21/2017 Comp Metabolic Vax447 TPRO 7.1 g/dL 08/21/2017 Comp Metabolic Oio001 GLOB 3.3 g/dL 08/21/2017 Comp Metabolic Mqn493 A/G Ratio 1.2 Ratio 08/21/2017 Comp Metabolic Huf905 Osmo 285 mOsmo 08/21/2017 Cbc With Differential [...] 88.1 fl 08/18/2017 Cbc With Differential Ord2 [place]% 6.9 % 08/18/2017 Cbc With Differential Ord2 [...] 2.05 K/ul 08/18/2017 Cbc With Differential Ord2 [place] ABS# 0.7 K/ul 08/18/2017 Cbc With Differential Ord2 Eos ABS# 0.3 K/ul 08/18/2017 Cbc With Differential Ord2 Baso ABS# 0.0 K/ul 08/18/2017 %Hba1C Wjl592 % HbA1c 93853-9 11.5 % 06/13/2017 %Hba1C Czy367 Gluc Ave 283 mg/dL 06/13/2017 Cbc With [...] 20.0 % 03/27/2017 Cbc With Differential Ord2 [place]% 7.2 % 03/27/2017 Cbc With Differential Ord2 [...] 2.11 K/ul 03/27/2017 Cbc With Differential Ord2 [place] ABS# 0.8 K/ul 03/27/2017 Cbc With Differential Ord2 Eos ABS# 0.2 K/ul 03/27/2017 Cbc With Differential Ord2 Baso ABS# 0.0 K/ul 03/27/2017 Digoxin Ord9 DIGOXIN 0.5 NG/ML 03/27/2017 Comp Metabolic Amd130 NA 136 mEq/L 03/27/2017 Comp Metabolic Git182 K 4.1 mEq/L 03/27/2017 Comp Metabolic Jxu323 CL 90 mEq/L 03/27/2017 Comp Metabolic Xuw046 CO2 34.0 mEq/L 03/27/2017 Comp Metabolic Dwo127 ANION GAP 16 03/27/2017 Comp Metabolic Dze752 GLUCOSE 325 mg/dL 03/27/2017 Comp Metabolic Wal527 Creat 1.0 mg/dL 03/27/2017 Comp Metabolic Uyg812 eGFR 62 ml/min/1.73m2 03/27/2017 Comp Metabolic Lzj890 BUN 15 mg/dL 03/27/2017 Comp Metabolic Xdw679 B/C Ratio 15.8 Ratio 03/27/2017 Comp Metabolic Vhf092 CALCIUM 9.5 mg/dL 03/27/2017 Comp Metabolic Iie630 ALK PHOS 159 U/L 03/27/2017 Comp Metabolic Tuc721 AST(SGOT) 57 U/L 03/27/2017 Comp Metabolic Tkg121 ALT(SGPT) 32 U/L 03/27/2017 Comp Metabolic Uuj647 BILI T 0.4 mg/dL 03/27/2017 Comp Metabolic Thm222 ALBUMIN 4.3 g/dL 03/27/2017 Comp Metabolic Pkk924 TPRO 7.3 g/dL 03/27/2017 Comp Metabolic Gce460 GLOB 3.0 g/dL 03/27/2017 Comp Metabolic Pcx404 A/G Ratio 1.4 Ratio 03/27/2017 Comp Metabolic Nhp554 Osmo 285 mOsmo 03/27/2017 Magnesium Ord90 Mag 2.4 mg/dL 02/27/2017 Comp Metabolic Swk235 NA 138 mEq/L 02/27/2017 Comp Metabolic Esx925 K 4.2 mEq/L 02/27/2017 Comp Metabolic Rfl862 CL 91 mEq/L 02/27/2017 Comp Metabolic Icw412 CO2 36.0 mEq/L 02/27/2017 Comp Metabolic Lkr458 ANION GAP 15 02/27/2017 Comp Metabolic Thw451 GLUCOSE 297 mg/dL 02/27/2017 Comp Metabolic Byf159 Creat 0.9 mg/dL 02/27/2017 Comp Metabolic Tio893 eGFR 71 ml/min/1.73m2 02/27/2017 Comp Metabolic Yfi791 BUN 12 mg/dL 02/27/2017 Comp Metabolic Rbt253 B/C Ratio 14.1 Ratio 02/27/2017 Comp Metabolic Ntv294 CALCIUM 9.0 mg/dL 02/27/2017 Comp Metabolic Nhr976 ALK PHOS 146 U/L 02/27/2017 Comp Metabolic Nhj550 AST(SGOT) 28 U/L 02/27/2017 Comp Metabolic Tjc436 ALT(SGPT) 12 U/L 02/27/2017 Comp Metabolic Qvu824 BILI T 0.3 mg/dL 02/27/2017 Comp Metabolic Wqc491 ALBUMIN 3.8 g/dL 02/27/2017 Comp Metabolic Dqb943 TPRO 6.6 g/dL 02/27/2017 Comp Metabolic Fgp334 GLOB 2.8 g/dL 02/27/2017 Comp Metabolic Zby926 A/G Ratio 1.3 Ratio 02/27/2017 Comp Metabolic Aem065 Osmo 286 mOsmo 02/27/2017 Digoxin Ord9 DIGOXIN <0.2 NG/ML 02/14/2017 Comp Metabolic Emt594 NA 138 mEq/L 02/14/2017 Comp Metabolic Vty390 K 3.5 mEq/L 02/14/2017 Comp Metabolic Wvl383 CL 95 mEq/L 02/14/2017 Comp Metabolic Eur611 CO2 29.0 mEq/L 02/14/2017 Comp Metabolic Nsy310 ANION GAP 18 02/14/2017 Comp Metabolic Ccm156 GLUCOSE 254 mg/dL 02/14/2017 Comp Metabolic Oyh112 Creat 1.0 mg/dL 02/14/2017 Comp Metabolic Wcu826 eGFR 62 ml/min/1.73m2 02/14/2017 Comp Metabolic Drr030 BUN 14 mg/dL 02/14/2017 Comp Metabolic Sng150 B/C Ratio 14.6 Ratio 02/14/2017 Comp Metabolic Pjc955 CALCIUM 8.6 mg/dL 02/14/2017 Comp Metabolic Mmi042 ALK PHOS 155 U/L 02/14/2017 Comp Metabolic Coa679 AST(SGOT) 42 U/L 02/14/2017 Comp Metabolic Lxm312 ALT(SGPT) 28 U/L 02/14/2017 Comp Metabolic Oty159 BILI T 0.3 mg/dL 02/14/2017 Comp Metabolic Ssx283 ALBUMIN 3.6 g/dL 02/14/2017 Comp Metabolic Urw496 TPRO 6.2 g/dL 02/14/2017 Comp Metabolic Thk947 GLOB 2.6 g/dL 02/14/2017 Comp Metabolic Tmd642 A/G Ratio 1.4 Ratio 02/14/2017 Comp Metabolic Tsb772 Osmo 285 mOsmo 02/14/2017 Vitamin D 25 Oh Akp4194 VITAMIN D, 25 HYDROXY 8.99 ng/mL Tsh [...] 28.0 pg 01/16/2017 Cbc With Differential Ord2 [place]% 7.3 % 01/16/2017 Cbc With Differential Ord2 [...] 1.42 K/ul 01/16/2017 Cbc With Differential Ord2 [place] ABS# 0.6 K/ul 01/16/2017 Cbc With Differential Ord2 Eos ABS# 0.1 K/ul 01/16/2017 Cbc With Differential Ord2 Baso ABS# 0.0 K/ul 01/16/2017 Sed Rate Ord21 ESR 33 mm/hr 01/16/2017 C-Reactive Protein Qnt Crqnt CRP 3.3 mg/dl 01/16/2017 Free T4 Ido828 FREE T4 0.81 ng/dL 01/16/2017 %Hba1C Fti762 % HbA1c 50347-2 12.4 % 01/16/2017 %Hba1C Isd593 Gluc Ave 309 mg/dL 01/16/2017 Comp Metabolic Pny009 NA 134 mEq/L 01/16/2017 Comp Metabolic Lpf431 K 4.0 mEq/L 01/16/2017 Comp Metabolic Yro944 CL 89 mEq/L 01/16/2017 Comp Metabolic Jai717 CO2 30.0 mEq/L 01/16/2017 Comp Metabolic Vih876 ANION GAP 19 01/16/2017 Comp Metabolic Bhk789 GLUCOSE 496 Result Verified By Repeat Analysis mg/dL 01/16/2017 Comp Metabolic Cqw494 Creat 0.8 mg/dL 01/16/2017 Comp Metabolic Jue130 eGFR 73 ml/min/1.73m2 01/16/2017 Comp Metabolic Dcu729 BUN 13 mg/dL 01/16/2017 Comp Metabolic Igt327 B/C Ratio 15.7 Ratio 01/16/2017 Comp Metabolic Gfb435 CALCIUM 8.8 mg/dL 01/16/2017 Comp Metabolic Itt149 ALK PHOS 171 U/L 01/16/2017 Comp Metabolic Pin458 AST(SGOT) 54 U/L 01/16/2017 Comp Metabolic Ssm844 ALT(SGPT) 32 U/L 01/16/2017 Comp Metabolic Qua504 BILI T 0.3 mg/dL 01/16/2017 Comp Metabolic Flr377 ALBUMIN 3.9 g/dL 01/16/2017 Comp Metabolic Ucz562 TPRO 6.5 g/dL 01/16/2017 Comp Metabolic Mdx353 GLOB 2.6 g/dL 01/16/2017 Comp Metabolic Fvy670 A/G Ratio 1.5 Ratio 01/16/2017 Comp Metabolic Dkx108 Osmo 290 mOsmo 01/16/2017 Comp Metabolic Mkd769 NA 135 mEq/L 09/14/2016 Comp Metabolic Zbe604 K 5.2 mEq/L 09/14/2016 Comp Metabolic Jpn270 CL 93 mEq/L 09/14/2016 Comp Metabolic Aoj707 CO2 26.0 mEq/L 09/14/2016 Comp Metabolic Ajy576 ANION GAP 21 09/14/2016 Comp Metabolic Lnl927 GLUCOSE 326 mg/dL 09/14/2016 Comp Metabolic Fch773 Creat 1.0 mg/dL 09/14/2016 Comp Metabolic Nuj215 eGFR 57 ml/min/1.73m2 09/14/2016 Comp Metabolic Ipa518 BUN 16 mg/dL 09/14/2016 Comp Metabolic Ybu198 B/C Ratio 15.5 Ratio 09/14/2016 Comp Metabolic Rbp311 CALCIUM 9.2 mg/dL 09/14/2016 Comp Metabolic Ilh740 ALK PHOS 160 U/L 09/14/2016 Comp Metabolic Zxi603 AST(SGOT) 49 U/L 09/14/2016 Comp Metabolic Cnn540 ALT(SGPT) 32 U/L 09/14/2016 Comp Metabolic Ndk751 BILI T 0.4 mg/dL 09/14/2016 Comp Metabolic Rtp580 ALBUMIN 4.0 g/dL 09/14/2016 Comp Metabolic Wkr541 TPRO 7.3 g/dL 09/14/2016 Comp Metabolic Cfe884 GLOB 3.3 g/dL 09/14/2016 Comp Metabolic Jlv804 A/G Ratio 1.2 Ratio 09/14/2016 Comp Metabolic Zcz111 Osmo 284 mOsmo 09/14/2016 Cbc With Differential [...] 86.9 fl 09/14/2016 Cbc With Differential Ord2 [place]% 6.2 % 09/14/2016 Cbc With Differential Ord2 [...] 2.09 K/ul 09/14/2016 Cbc With Differential Ord2 [place] ABS# 0.7 K/ul 09/14/2016 Cbc With Differential Ord2 Eos ABS# 0.2 K/ul 09/14/2016 Cbc With Differential Ord2 Baso ABS# 0.3 K/ul 09/14/2016 %Hba1C Wid100 % HbA1c 63024-7 10.7 % 09/14/2016 %Hba1C Kgs991 Gluc Ave 260 mg/dL 09/14/2016 Manual Differential Ord52 D-Neutr 62 % 09/14/2016 Manual Differential Ord52 D-[place] 1 % 09/14/2016 Manual Differential Ord52 D-Lymph 34 % 09/14/2016 Manual Differential Ord52 D-Eos 2 % 09/14/2016 Manual Differential Ord52 D-[place] 1 % 09/14/2016 Comp Metabolic Zmg053 NA 134 mEq/L 08/10/2016 Comp Metabolic Ajw974 K 5.0 mEq/L 08/10/2016 Comp Metabolic Eko461 CL 91 mEq/L 08/10/2016 Comp Metabolic Dqc902 CO2 29.0 mEq/L 08/10/2016 Comp Metabolic Haf220 ANION GAP 19 08/10/2016 Comp Metabolic Kvr116 GLUCOSE 291 mg/dL 08/10/2016 Comp Metabolic Tqr383 Creat 0.9 mg/dL 08/10/2016 Comp Metabolic Npa182 eGFR 68 ml/min/1.73m2 08/10/2016 Comp Metabolic Cfb772 BUN 20 mg/dL 08/10/2016 Comp Metabolic Jbt696 B/C Ratio 22.7 Ratio 08/10/2016 Comp Metabolic Jja746 CALCIUM 9.7 mg/dL 08/10/2016 Comp Metabolic Uax242 ALK PHOS 144 U/L 08/10/2016 Comp Metabolic Pcy086 AST(SGOT) 62 U/L 08/10/2016 Comp Metabolic Bzk616 ALT(SGPT) 37 U/L 08/10/2016 Comp Metabolic Gqp844 BILI T 0.3 mg/dL 08/10/2016 Comp Metabolic Bss765 ALBUMIN 4.3 g/dL 08/10/2016 Comp Metabolic Nnr973 TPRO 7.3 g/dL 08/10/2016 Comp Metabolic Ajb945 GLOB 3.0 g/dL 08/10/2016 Comp Metabolic Kno424 A/G Ratio 1.5 Ratio 08/10/2016 Comp Metabolic Cfe276 Osmo 282 mOsmo 08/10/2016 Free T4 Pzc909 FREE T4 0.89 ng/dL 08/09/2016 Tsh Ord6 [...] 27.1 pg 08/09/2016 Cbc With Differential Ord2 [place]% 5.4 % 08/09/2016 Cbc With Differential Ord2 [...] 2.46 K/ul 08/09/2016 Cbc With Differential Ord2 [place] ABS# 0.8 K/ul 08/09/2016 Cbc With Differential [...] 26.3 % 04/20/2016 Cbc With Differential Ord2 [place]% 6.3 % 04/20/2016 Cbc With Differential Ord2 [...] 2.63 K/ul 04/20/2016 Cbc With Differential Ord2 [place] ABS# 0.6 K/ul 04/20/2016 Cbc With Differential Ord2 Eos ABS# 0.2 K/ul 04/20/2016 Cbc With Differential Ord2 Baso ABS# 0.0 K/ul 04/20/2016 Comp Metabolic Syp790 NA 133 mEq/L 04/11/2016 Comp Metabolic Zez743 K 4.1 mEq/L 04/11/2016 Comp Metabolic Zjl629 CL 92 mEq/L 04/11/2016 Comp Metabolic Kdf655 CO2 30.0 mEq/L 04/11/2016 Comp Metabolic Ptr517 ANION GAP 15 04/11/2016 Comp Metabolic Tog258 GLUCOSE 414 mg/dL 04/11/2016 Comp Metabolic Dwt584 Creat 0.9 mg/dL 04/11/2016 Comp Metabolic Oxp294 eGFR 65 ml/min/1.73m2 04/11/2016 Comp Metabolic Apd639 BUN 22 mg/dL 04/11/2016 Comp Metabolic Kjc913 B/C Ratio 23.9 Ratio 04/11/2016 Comp Metabolic Wsb338 CALCIUM 9.2 mg/dL 04/11/2016 Comp Metabolic Alw770 ALK PHOS 145 U/L 04/11/2016 Comp Metabolic Foq955 AST(SGOT) 22 U/L 04/11/2016 Comp Metabolic Lbj564 ALT(SGPT) 21 U/L 04/11/2016 Comp Metabolic Nhl139 BILI T 0.3 mg/dL 04/11/2016 Comp Metabolic Nwj032 ALBUMIN 3.9 g/dL 04/11/2016 Comp Metabolic Ghg517 TPRO 6.8 g/dL 04/11/2016 Comp Metabolic Clj764 GLOB 3.0 g/dL 04/11/2016 Comp Metabolic Zxl570 A/G Ratio 1.3 Ratio 04/11/2016 Comp Metabolic Ahh383 Osmo 287 mOsmo 04/11/2016 Cbc With Differential [...] 27.6 pg 04/11/2016 Cbc With Differential Ord2 [place]% 6.9 % 04/11/2016 Cbc With Differential Ord2 [...] 2.09 K/ul 04/11/2016 Cbc With Differential Ord2 [place] ABS# 0.7 K/ul 04/11/2016 Cbc With Differential Ord2 Eos ABS# 0.2 K/ul 04/11/2016 Cbc With Differential Ord2 Baso ABS# 0.0 K/ul 04/11/2016 Comp Metabolic Hvq555 NA 136 mEq/L 02/26/2016 Comp Metabolic Bds059 K 3.9 mEq/L 02/26/2016 Comp Metabolic Hwc360 CL 95 mEq/L 02/26/2016 Comp Metabolic Csx065 CO2 29.0 mEq/L 02/26/2016 Comp Metabolic Dwf998 ANION GAP 16 02/26/2016 Comp Metabolic Fda696 GLUCOSE 277 mg/dL 02/26/2016 Comp Metabolic Woi731 Creat 0.7 mg/dL 02/26/2016 Comp Metabolic Mvu849 eGFR 88 ml/min/1.73m2 02/26/2016 Comp Metabolic Nnn260 BUN 11 mg/dL 02/26/2016 Comp Metabolic Vkq276 B/C Ratio 15.5 Ratio 02/26/2016 Comp Metabolic Mij588 CALCIUM 8.8 mg/dL 02/26/2016 Comp Metabolic Vnt541 ALK PHOS 119 U/L 02/26/2016 Comp Metabolic Ysi578 AST(SGOT) 25 U/L 02/26/2016 Comp Metabolic Zbx767 ALT(SGPT) 20 U/L 02/26/2016 Comp Metabolic Gmy054 BILI T 0.3 mg/dL 02/26/2016 Comp Metabolic Ldv112 ALBUMIN 3.8 g/dL 02/26/2016 Comp Metabolic Smc786 TPRO 6.6 g/dL 02/26/2016 Comp Metabolic Baw116 GLOB 2.8 g/dL 02/26/2016 Comp Metabolic Giv649 A/G Ratio 1.3 Ratio 02/26/2016 Comp Metabolic Txs647 Osmo 281 mOsmo 02/26/2016 Cbc With Differential [...] 29.6 pg 02/26/2016 Cbc With Differential Ord2 [place]% 6.4 % 02/26/2016 Cbc With Differential Ord2 [...] 2.78 K/ul 02/26/2016 Cbc With Differential Ord2 [place] ABS# 0.8 K/ul 02/26/2016 Cbc With Differential Ord2 Eos ABS# 0.2 K/ul 02/26/2016 Cbc With Differential Ord2 Baso ABS# 0.1 K/ul 02/26/2016 %Hba1C Xgt660 % HbA1c 13363-2 9.6 % 02/26/2016 %Hba1C Gbk713 Gluc Ave 229 mg/dL 02/26/2016 Comp Metabolic Dmn430 NA 138 mEq/L 11/10/2015 Comp Metabolic Aks758 K 4.5 mEq/L 11/10/2015 Comp Metabolic Jde852 CL 99 mEq/L 11/10/2015 Comp Metabolic Opy533 CO2 34.0 mEq/L 11/10/2015 Comp Metabolic Jfi587 ANION GAP 10 11/10/2015 Comp Metabolic Mcr717 GLUCOSE 167 mg/dL 11/10/2015 Comp Metabolic Oap886 Creat 0.8 mg/dL 11/10/2015 Comp Metabolic Ouw101 eGFR 78 ml/min/1.73m2 11/10/2015 Comp Metabolic Lvv330 BUN 22 mg/dL 11/10/2015 Comp Metabolic Cdx297 B/C Ratio 27.8 Ratio 11/10/2015 Comp Metabolic Ilr629 CALCIUM 8.5 mg/dL 11/10/2015 Comp Metabolic Ftu359 ALK PHOS 130 U/L 11/10/2015 Comp Metabolic Uvk017 AST(SGOT) 56 U/L 11/10/2015 Comp Metabolic Len530 ALT(SGPT) 51 U/L 11/10/2015 Comp Metabolic Lza809 BILI T 0.5 mg/dL 11/10/2015 Comp Metabolic Lwy808 ALBUMIN 3.5 g/dL 11/10/2015 Comp Metabolic Ofh590 TPRO 5.8 g/dL 11/10/2015 Comp Metabolic Eew841 GLOB 2.3 g/dL 11/10/2015 Comp Metabolic Fms864 A/G Ratio 1.5 Ratio 11/10/2015 Comp Metabolic Poy254 Osmo 283 mOsmo 11/10/2015 Cbc With Differential [...] 93.1 fl 11/10/2015 Cbc With Differential Ord2 [place]% 7.7 % 11/10/2015 Cbc With Differential Ord2 [...] 1.92 K/ul 11/10/2015 Cbc With Differential Ord2 [place] ABS# 0.9 K/ul 11/10/2015 Cbc With Differential [...] 28.6 pg 08/11/2015 Cbc With Differential Ord2 [place]% 8.1 % 08/11/2015 Cbc With Differential Ord2 [...] 2.93 K/ul 08/11/2015 Cbc With Differential Ord2 [place] ABS# 0.9 K/ul 08/11/2015 Cbc With Differential Ord2 Eos ABS# 0.1 K/ul 08/11/2015 Cbc With Differential Ord2 Baso ABS# 0.0 K/ul 08/11/2015 Cbc With Differential Ord2 New Analyzer Notice Please note new ref ranges starting 06-03-2015 due to implemntation of new five part differential hematolgy analyzer. 08/11/2015 Comp Metabolic Uyg563 NA 142 mEq/L 08/11/2015 Comp Metabolic Mzi685 K 3.6 mEq/L 08/11/2015 Comp Metabolic Plc954 CL 98 mEq/L 08/11/2015 Comp Metabolic Ekw226 CO2 33.0 mEq/L 08/11/2015 Comp Metabolic Njk795 ANION GAP 15 08/11/2015 Comp Metabolic Rti210 GLUCOSE 100 mg/dL 08/11/2015 Comp Metabolic Tya990 Creat 0.9 mg/dL 08/11/2015 Comp Metabolic Rwu793 eGFR 65 ml/min/1.73m2 08/11/2015 Comp Metabolic Dty875 BUN 15 mg/dL 08/11/2015 Comp Metabolic Oxf707 B/C Ratio 16.3 Ratio 08/11/2015 Comp Metabolic Crx134 CALCIUM 8.8 mg/dL 08/11/2015 Comp Metabolic Xbt856 ALK PHOS 171 U/L 08/11/2015 Comp Metabolic Xfc130 AST(SGOT) 76 U/L 08/11/2015 Comp Metabolic Yqx727 ALT(SGPT) 64 U/L 08/11/2015 Comp Metabolic Bbt581 BILI T 0.4 mg/dL 08/11/2015 Comp Metabolic Gkx477 ALBUMIN 4.2 g/dL 08/11/2015 Comp Metabolic Jpy578 TPRO 6.7 g/dL 08/11/2015 Comp Metabolic Kqf242 GLOB 2.6 g/dL 08/11/2015 Comp Metabolic Wwb780 A/G Ratio 1.6 Ratio 08/11/2015 Comp Metabolic Sle912 Osmo 284 mOsmo 08/11/2015 %Hba1C Kzx274 % HbA1c 86246-5 6.7 % 08/11/2015 %Hba1C Hll049 Gluc Ave 146 mg/dL 08/11/2015 Free T4 Udi043 FREE T4 1.07 ng/dL 08/11/2015 Culture Urine [id number] URINE CULTURE SEE NOTES 07/23/2015 Culture Urine [id number] Continued Results 07/23/2015 Urine Culture Ucult Complete Growth of aerobe sent to ref lab 07/21/2015 Free T4 Fmf931 FREE T4 0.76 ng/dL 04/15/2015 Tsh Ord6 hTSH II 1.99 uIU/mL 04/15/2015 %Hba1C Jst858 % HbA1c 45113-6 6.7 % 04/14/2015 %Hba1C Fft567 Gluc Ave 146 mg/dL 04/14/2015 Comp Metabolic Zqw623 NA 140 mEq/L 04/14/2015 Comp Metabolic Nbr515 K 4.4 mEq/L 04/14/2015 Comp Metabolic Qtc628 CL 99 mEq/L 04/14/2015 Comp Metabolic Htj920 CO2 29.0 mEq/L 04/14/2015 Comp Metabolic Ufd117 ANION GAP 16 04/14/2015 Comp Metabolic Mco553 GLUCOSE 100 mg/dL 04/14/2015 Comp Metabolic Esr344 Creat 0.7 mg/dL 04/14/2015 Comp Metabolic Vtd226 eGFR 91 ml/min/1.73m2 04/14/2015 Comp Metabolic Wyg001 BUN 13 mg/dL 04/14/2015 Comp Metabolic Deg001 B/C Ratio 18.8 Ratio 04/14/2015 Comp Metabolic Dja852 CALCIUM 9.1 mg/dL 04/14/2015 Comp Metabolic Dai265 ALK PHOS 138 U/L 04/14/2015 Comp Metabolic Qfz054 AST(SGOT) 22 U/L 04/14/2015 Comp Metabolic Vka674 ALT(SGPT) 22 U/L 04/14/2015 Comp Metabolic Jxc643 BILI T 0.3 mg/dL 04/14/2015 Comp Metabolic Psz168 ALBUMIN 4.0 g/dL 04/14/2015 Comp Metabolic Bho775 TPRO 6.5 g/dL 04/14/2015 Comp Metabolic Usa729 GLOB 2.5 g/dL 04/14/2015 Comp Metabolic Atw359 A/G Ratio 1.6 Ratio 04/14/2015 Comp Metabolic Pby525 Osmo 280 mOsmo 04/14/2015 Cbc With Differential [...] Ord2 RDW 16.5 % 04/14/2015 CHEM 14 2502157 AST 15 U/L 09/11/2013 CHEM 14 8246452 ALT 25 IU/L 09/11/2013 CHEM 14 5970601 BUN 29 MG/DL 09/11/2013 CHEM 14 2171805 ALBUMIN 3.8 GM/DL 09/11/2013 CHEM 14 4019070 CHLORIDE 99 MMOL/L 09/11/2013 CHEM 14 0239685 BILI TOT 0.2 MG/DL 09/11/2013 CHEM 14 0556612 ALK PHOS 118 U/L 09/11/2013 CHEM 14 7711666 SODIUM 136 MMOL/L 09/11/2013 CHEM 14 4121108 CREATININE 1.26 MG/DL 09/11/2013 CHEM 14 0660465 CALCIUM 9.0 MG/DL 09/11/2013 CHEM 14 5458231 POTASSIUM 5.0 MMOL/L 09/11/2013 CHEM 14 4777957 PROT TOT 6.2 GM/DL 09/11/2013 CHEM 14 9636691 GLUCOSE 254 MG/DL 09/11/2013 CHEM 14 3584094 BICARB 29 MMOL/L 09/11/2013 CHEM 14 0600290 ANION GAP 8 MEQ/L 09/11/2013 GFR CALC 8419473 GFR AA 52.0L ML/MIN 09/11/2013 GFR CALC 3759380 GFR NON-AA 43.0L ML/MIN 09/11/2013 FREE T4 4648518 FREE T4 1.35 NG/DL 08/02/2013 CBC 1419349 WBC 7.5 10e9/L 08/01/2013 CBC 6237428 RBC 3.88 10e12/L 08/01/2013 CBC 3412886 HGB 12.1 g/dL 08/01/2013 CBC 8657578 HCT DET 37.6 % 08/01/2013 CBC 0115865 MCV 96.9 fL 08/01/2013 CBC 4012891 MCH 31.2 pg 08/01/2013 CBC 8009238 MCHC 32.2 g/dL 08/01/2013 CBC 9681792 PLT 289 10e9/L 08/01/2013 CBC 1608490 MPV 9.6 fL 08/01/2013 CBC 4167692 JOSEFINA % 56.0 % 08/01/2013 CBC 2434154 LY % 31.6 % 08/01/2013 CBC 4242811 MON % 10.0 % 08/01/2013 CBC 6386492 EOS % 1.7 % 08/01/2013 CBC 4578077 BASO % 0.7 % 08/01/2013 CBC 8403115 RDW 15.5 % 08/01/2013 CBC 7166618 ABS JOSEFINA 4.20 10e9/L 08/01/2013 CBC 6353946 ABS LYMPH 2.37 10e9/L 08/01/2013 CBC 6808282 ABS MONO 0.75 10e9/L 08/01/2013 CBC 1352486 ABS EOS 0.13 10e9/L 08/01/2013 CBC 1239276 ABS BASO 0.05 10e9/L 08/01/2013 CBC 4308367 RDW-SD 53.5 fL 08/01/2013 TSH 7939792 TSH 6.497 uIU/ML 08/01/2013 CHEM 14 4878479 AST 53 U/L 08/01/2013 CHEM 14 5621229 ALT 36 IU/L 08/01/2013 CHEM 14 3599878 BUN 16 MG/DL 08/01/2013 CHEM 14 1522461 ALBUMIN 4.2 GM/DL 08/01/2013 CHEM 14 4625491 CHLORIDE 103 MMOL/L 08/01/2013 CHEM 14 8288275 BILI TOT 0.4 MG/DL 08/01/2013 CHEM 14 7312049 ALK PHOS 113 U/L 08/01/2013 CHEM 14 7731833 SODIUM 139 MMOL/L 08/01/2013 CHEM 14 1903784 CREATININE 0.83 MG/DL 08/01/2013 CHEM 14 7600631 CALCIUM 9.5 MG/DL 08/01/2013 CHEM 14 1192888 POTASSIUM 4.2 MMOL/L 08/01/2013 CHEM 14 8826891 PROT TOT 6.4 GM/DL 08/01/2013 CHEM 14 6946455 GLUCOSE 135 MG/DL 08/01/2013 CHEM 14 4248330 BICARB 26 MMOL/L 08/01/2013 CHEM 14 5058714 ANION GAP 10 MEQ/L 08/01/2013 A1C HPLC 3567452 A1C HPLC 35152-4 8.1 % 08/01/2013 GFR CALC 1600028 GFR AA >60 ML/MIN 08/01/2013 GFR CALC 0800267 GFR NON-AA >60 ML/MIN 08/01/2013 CBC 5437473 WBC 10.4 10e9/L 03/21/2013 CBC 5850892 RBC 4.27 10e12/L 03/21/2013 CBC 9455634 HGB 13.1 g/dL 03/21/2013 CBC 6473461 HCT DET 41.2 % 03/21/2013 CBC 1659528 MCV 96.5 fL 03/21/2013 CBC 1398004 MCH 30.7 pg 03/21/2013 CBC 9412235 MCHC 31.8 g/dL 03/21/2013 CBC 7089363 PLT 398 10e9/L 03/21/2013 CBC 2146713 MPV 10.9 fL 03/21/2013 CBC 8408801 JOSEFINA % 65.4 % 03/21/2013 CBC 5747010 LY % 25.6 % 03/21/2013 CBC 8231373 MON % 6.7 % 03/21/2013 CBC 6267788 EOS % 1.9 % 03/21/2013 CBC 0962281 BASO % 0.4 % 03/21/2013 CBC 1079898 RDW 14.2 % 03/21/2013 CBC 2894212 ABS JOSEFINA 6.80 10e9/L 03/21/2013 CBC 2099846 ABS LYMPH 2.66 10e9/L 03/21/2013 CBC 1928985 ABS MONO 0.70 10e9/L 03/21/2013 CBC 8885897 ABS EOS 0.20 10e9/L 03/21/2013 CBC 4454772 ABS BASO 0.04 10e9/L 03/21/2013 CBC 9732751 RDW-SD 48.7 fL 03/21/2013 GFR CALC 2139743 GFR AA 57.0L ML/MIN 03/21/2013 GFR CALC 6777861 GFR NON-AA 47.0L ML/MIN 03/21/2013 CHEM 14 6191262 AST 22 U/L 03/21/2013 CHEM 14 7043629 ALT 22 IU/L 03/21/2013 CHEM 14 9271477 BUN 29 MG/DL 03/21/2013 CHEM 14 3452926 ALBUMIN 4.1 GM/DL 03/21/2013 CHEM 14 6146775 CHLORIDE 99 MMOL/L 03/21/2013 CHEM 14 0248193 BILI TOT 0.3 MG/DL 03/21/2013 CHEM 14 1088009 ALK PHOS 123 U/L 03/21/2013 CHEM 14 5979348 SODIUM 137 MMOL/L 03/21/2013 CHEM 14 6026151 CREATININE 1.16 MG/DL 03/21/2013 CHEM 14 2731611 CALCIUM 9.1 MG/DL 03/21/2013 CHEM 14 7008316 POTASSIUM 4.1 MMOL/L 03/21/2013 CHEM 14 0072632 PROT TOT 6.7 GM/DL 03/21/2013 CHEM 14 6737154 GLUCOSE 209 MG/DL 03/21/2013 CHEM 14 8024675 BICARB 26 MMOL/L 03/21/2013 CHEM 14 0350823 ANION GAP 12 MEQ/L 03/21/2013 A1C HPLC 3905895 A1C HPLC 80639-9 6.6 % 03/21/2013 GFR CALC 4384951 GFR AA >60 ML/MIN 01/17/2013 GFR CALC 9465065 GFR NON-AA 51.0L ML/MIN 01/17/2013 CHEM 14 8724151 AST 18 U/L 01/17/2013 CHEM 14 0292494 ALT 32 IU/L 01/17/2013 CHEM 14 2921734 BUN 22 MG/DL 01/17/2013 CHEM 14 7485596 ALBUMIN 4.1 GM/DL 01/17/2013 CHEM 14 6311425 CHLORIDE 99 MMOL/L 01/17/2013 CHEM 14 4052021 BILI TOT 0.3 MG/DL 01/17/2013 CHEM 14 3336867 ALK PHOS 110 U/L 01/17/2013 CHEM 14 6014680 SODIUM 138 MMOL/L 01/17/2013 CHEM 14 2802833 CREATININE 1.09 MG/DL 01/17/2013 CHEM 14 9989314 CALCIUM 8.8 MG/DL 01/17/2013 CHEM 14 1594751 POTASSIUM 3.5 MMOL/L 01/17/2013 CHEM 14 3248140 PROT TOT 6.1 GM/DL 01/17/2013 CHEM 14 6510974 GLUCOSE 163 MG/DL 01/17/2013 CHEM 14 1560424 BICARB 29 MMOL/L 01/17/2013 CHEM 14 6814294 ANION GAP 10 MEQ/L 01/17/2013 CBC 1813234 WBC 8.0 10e9/L 01/17/2013 CBC 6009455 RBC 3.85 10e12/L 01/17/2013 CBC 3289571 HGB 12.6 g/dL 01/17/2013 CBC 5162914 HCT DET 38.0 % 01/17/2013 CBC 1535198 MCV 98.7 fL 01/17/2013 CBC 1658952 MCH 32.7 pg 01/17/2013 CBC 3688575 MCHC 33.2 g/dL 01/17/2013 CBC 1694543 PLT 325 10e9/L 01/17/2013 CBC 7148704 MPV 10.4 fL 01/17/2013 CBC 3913880 JOSEFINA % 64.6 % 01/17/2013 CBC 3149211 LY % 27.0 % 01/17/2013 CBC 6081112 MON % 6.8 % 01/17/2013 CBC 3444670 EOS % 1.4 % 01/17/2013 CBC 8670329 BASO % 0.2 % 01/17/2013 CBC 3245018 RDW 15.5 % 01/17/2013 CBC 9368724 ABS JOSEFINA 5.17 10e9/L 01/17/2013 CBC 3389957 ABS LYMPH 2.16 10e9/L 01/17/2013 CBC 9460224 ABS MONO 0.54 10e9/L 01/17/2013 CBC 2120661 ABS EOS 0.11 10e9/L 01/17/2013 CBC 1704528 ABS BASO 0.02 10e9/L 01/17/2013 CBC 5348539 RDW-SD 54.3 fL 01/17/2013 TSH 6391295 TSH 3.683 uIU/ML 12/31/2012 FREE T4 2930188 FREE T4 1.34 NG/DL 12/31/2012 A1C HPLC 5155205 A1C HPLC 00180-2 6.6 % 12/21/2012 CHEM 14 4853049 AST 16 U/L 12/20/2012 CHEM 14 3649893 ALT 36 IU/L 12/20/2012 CHEM 14 6684823 BUN 26 MG/DL 12/20/2012 CHEM 14 1142385 ALBUMIN 4.2 GM/DL 12/20/2012 CHEM 14 9801103 CHLORIDE 103 MMOL/L 12/20/2012 CHEM 14 2633583 BILI TOT 0.4 MG/DL 12/20/2012 CHEM 14 9393667 ALK PHOS 107 U/L 12/20/2012 CHEM 14 3240542 SODIUM 141 MMOL/L 12/20/2012 CHEM 14 7279838 CREATININE 0.73 MG/DL 12/20/2012 CHEM 14 8993667 CALCIUM 9.2 MG/DL 12/20/2012 CHEM 14 1975142 POTASSIUM 4.3 MMOL/L 12/20/2012 CHEM 14 9969262 PROT TOT 6.2 GM/DL 12/20/2012 CHEM 14 0743883 GLUCOSE 135 MG/DL 12/20/2012 CHEM 14 1336909 BICARB 32 MMOL/L 12/20/2012 CHEM 14 3048585 ANION GAP 6 MEQ/L 12/20/2012 GFR CALC 0046451 GFR AA >60 ML/MIN 12/20/2012 GFR CALC 8460027 GFR NON-AA >60 ML/MIN 12/20/2012 CBC 7828961 WBC 8.4 10e9/L 12/20/2012 CBC 2094250 RBC 4.30 10e12/L 12/20/2012 CBC 0272954 HGB 13.9 g/dL 12/20/2012 CBC 7777932 HCT DET 41.8 % 12/20/2012 CBC 3858330 MCV 97.2 fL 12/20/2012 CBC 5508631 MCH 32.3 pg 12/20/2012 CBC 8247229 MCHC 33.3 g/dL 12/20/2012 CBC 1472622 PLT 358 10e9/L 12/20/2012 CBC 3753887 MPV 10.2 fL 12/20/2012 CBC 7753265 JOSEFINA % 63.3 % 12/20/2012 CBC 6619619 LY % 28.9 % 12/20/2012 CBC 5313425 MON % 6.3 % 12/20/2012 CBC 5158470 EOS % 1.1 % 12/20/2012 CBC 2248409 BASO % 0.4 % 12/20/2012 CBC 1106016 RDW 15.3 % 12/20/2012 CBC 5396692 ABS JOSEFINA 5.32 10e9/L 12/20/2012 CBC 7364809 ABS LYMPH 2.43 10e9/L 12/20/2012 CBC 1895590 ABS MONO 0.53 10e9/L 12/20/2012 CBC 2747124 ABS EOS 0.09 10e9/L 12/20/2012 CBC 2956042 ABS BASO 0.03 10e9/L 12/20/2012 CBC 9251022 RDW-SD 51.9 fL 12/20/2012 GFR CALC 2896954 GFR AA >60 ML/MIN 02/01/2012 GFR CALC 0143887 GFR NON-AA >60 ML/MIN 02/01/2012 CBC 1797600 WBC 10.8 10e9/L 02/01/2012 CBC 1754064 RBC 3.86 10e12/L 02/01/2012 CBC 7820792 HGB 11.8 g/dL 02/01/2012 CBC 3756834 HCT DET 36.3 % 02/01/2012 CBC 6904050 MCV 94.0 fL 02/01/2012 CBC 7940934 MCH 30.6 pg 02/01/2012 CBC 7318339 MCHC 32.5 g/dL 02/01/2012 CBC 5094169 PLT 321 10e9/L 02/01/2012 CBC 9654161 MPV 10.3 fL 02/01/2012 CBC 7991015 JOSEFINA % 75.9 % 02/01/2012 CBC 2204101 LY % 16.1 % 02/01/2012 CBC 7725275 MON % 6.8 % 02/01/2012 CBC 3709056 EOS % 1.0 % 02/01/2012 CBC 1252785 BASO % 0.2 % 02/01/2012 CBC 7065702 RDW 14.2 % 02/01/2012 CBC 2025654 ABS JOSEFINA 8.20 10e9/L 02/01/2012 CBC 4373451 ABS LYMPH 1.74 10e9/L 02/01/2012 CBC 6453735 ABS MONO 0.73 10e9/L 02/01/2012 CBC 0289014 ABS EOS 0.11 10e9/L 02/01/2012 CBC 6645597 ABS BASO 0.02 10e9/L 02/01/2012 CBC 0355467 RDW-SD 47.2 fL 02/01/2012 BRAIN PEP 4935654 BRAIN PEP FOOTNOTE pg/mL 02/01/2012 CHEM 14 6527041 AST 26 U/L 02/01/2012 CHEM 14 9393505 ALT 36 IU/L 02/01/2012 CHEM 14 4491589 BUN 29 MG/DL 02/01/2012 CHEM 14 6827984 ALBUMIN 3.7 GM/DL 02/01/2012 CHEM 14 6193411 CHLORIDE 105 MMOL/L 02/01/2012 CHEM 14 3416572 BILI TOT 0.2 MG/DL 02/01/2012 CHEM 14 4667322 ALK PHOS 89 U/L 02/01/2012 CHEM 14 4845673 SODIUM 141 MMOL/L 02/01/2012 CHEM 14 5808498 CREATININE 0.76 MG/DL 02/01/2012 CHEM 14 1148759 CALCIUM 9.0 MG/DL 02/01/2012 CHEM 14 7982687 POTASSIUM 4.8 MMOL/L 02/01/2012 CHEM 14 5147398 PROT TOT 5.5 GM/DL 02/01/2012 CHEM 14 9728958 GLUCOSE 83 MG/DL 02/01/2012 CHEM 14 0456532 BICARB 31 MMOL/L 02/01/2012 CHEM 14 0367929 ANION GAP 5 MEQ/L 02/01/2012 GFR CALC 2018707 GFR AA >60 ML/MIN 11/30/2011 GFR CALC 2314361 GFR NON-AA >60 ML/MIN 11/30/2011 CHEM 14 4481759 AST 14 U/L 11/30/2011 CHEM 14 2657404 ALT 17 IU/L 11/30/2011 CHEM 14 9735506 BUN 12 MG/DL 11/30/2011 CHEM 14 1717466 ALBUMIN 4.3 GM/DL 11/30/2011 CHEM 14 2118372 CHLORIDE 104 MMOL/L 11/30/2011 CHEM 14 3058418 BILI TOT 0.3 MG/DL 11/30/2011 CHEM 14 3668279 ALK PHOS 83 U/L 11/30/2011 CHEM 14 9992939 SODIUM 143 MMOL/L 11/30/2011 CHEM 14 5736831 CREATININE 0.71 MG/DL 11/30/2011 CHEM 14 9499502 CALCIUM 9.7 MG/DL 11/30/2011 CHEM 14 6906744 POTASSIUM 4.4 MMOL/L 11/30/2011 CHEM 14 6044698 PROT TOT 6.3 GM/DL 11/30/2011 CHEM 14 0111681 GLUCOSE 107 MG/DL 11/30/2011 CHEM 14 5422264 BICARB 27 MMOL/L 11/30/2011 CHEM 14 3360818 ANION GAP 12 MEQ/L 11/30/2011 CBC 4680802 WBC 8.7 10e9/L 11/30/2011 CBC 5153217 RBC 4.40 10e12/L 11/30/2011 CBC 1677681 HGB 13.6 g/dL 11/30/2011 CBC 9077467 HCT DET 41.0 % 11/30/2011 CBC 7113401 MCV 93.2 fL 11/30/2011 CBC 7974863 MCH 30.9 pg 11/30/2011 CBC 3982017 MCHC 33.2 g/dL 11/30/2011 CBC 1277081 PLT 328 10e9/L 11/30/2011 CBC 0170350 MPV 10.7 fL 11/30/2011 CBC 9810534 JOSEFINA % 68.4 % 11/30/2011 CBC 1970924 LY % 22.4 % 11/30/2011 CBC 3427033 MON % 7.9 % 11/30/2011 CBC 5465063 EOS % 1.1 % 11/30/2011 CBC 1743307 BASO % 0.2 % 11/30/2011 CBC 1990922 RDW 13.5 % 11/30/2011 CBC 7955661 ABS JOSEFINA 5.95 10e9/L 11/30/2011 CBC 7846970 ABS LYMPH 1.95 10e9/L 11/30/2011 CBC 4883764 ABS MONO 0.69 10e9/L 11/30/2011 CBC 2279868 ABS EOS 0.10 10e9/L 11/30/2011 CBC 9901744 ABS BASO 0.02 10e9/L 11/30/2011 CBC 0836964 RDW-SD 45.0 fL 11/30/2011 URINALYSIS NONAUTO W/O SCOPE 66462 Specific [place] 1.030 DateTime(Free Text in Aprima) URINALYSIS NONAUTO W/O SCOPE 54346 PH 5 DateTime(Free Text in Aprima) URINALYSIS NONAUTO W/O SCOPE 61129 GLUCOSE neg DateTime( Free Text in Aprima) URINALYSIS NONAUTO W/O SCOPE 39238 Protein neg DateTime( Free Text in Apr[employer]) URINALYSIS NONAUTO W/O SCOPE 49855 Blood neg DateTime(Free Text in Aprima) URINALYSIS NONAUTO W/O SCOPE 85971 Bilirubin neg DateTime(Free Text in Apr[employer]) URINALYSIS NONAUTO W/O SCOPE 72264 Ketones neg DateTime( Free Text in Apr[employer]) URINALYSIS NONAUTO W/O SCOPE 32995 Urobilinogen neg DateTime(Free Text in Aprima) URINALYSIS NONAUTO W/O SCOPE 67004 Nitrite neg DateTime( Free Text in Apr[employer]) URINALYSIS NONAUTO W/O SCOPE 74570 Leukocytes neg DateTime(Free Text in Aprima) UA 62631 Specific [place] 1.010 DateTime(Free Text in Aprima ) UA 82409 PH 5 DateTime(Free Text in Aprima) UA 23759 GLUCOSE N DateTime(Free Text in Aprima) UA 25188 Protein N DateTime(Free Text in Aprima) UA 30363 Blood TRACE DateTime(Free Text in Aprima) UA 33060 Bilirubin N DateTime(Free Text in Aprima) UA 59080 Ketones N DateTime(Free Text in Aprima) UA 48552 Urobilinogen N DateTime(Free Text in Aprima) UA 02087 Nitrite N DateTime(Free Text in Aprima) UA 43073 Leukocytes N DateTime(Free Text in Aprima) URINALYSIS NONAUTO W/O SCOPE 27591 Specific [place] 1.010 DateTime(Free Text in Aprima) URINALYSIS NONAUTO W/O SCOPE 57992 PH 7.5 DateTime(Free Text in Aprima) URINALYSIS NONAUTO W/O SCOPE 61448 GLUCOSE DateTime( Free Text in Apr[employer]) URINALYSIS NONAUTO W/O SCOPE 26342 Protein trace DateTime(Free Text in Aprima) URINALYSIS NONAUTO W/O SCOPE 98103 Blood DateTime(Free Text in Apr[employer]) URINALYSIS NONAUTO W/O SCOPE 91859 Bilirubin DateTime( Free Text in Apr[employer]) URINALYSIS NONAUTO W/O SCOPE 84259 Ketones DateTime( Free Text in Aprima) URINALYSIS NONAUTO W/O SCOPE 78717 Urobilinogen DateTime (Free Text in Apr[employer]) URINALYSIS NONAUTO W/O SCOPE 97071 Nitrite DateTime( Free Text in Aprima) URINALYSIS NONAUTO W/O SCOPE 77447 Leukocytes DateTime( Free Text in Apr[employer]) URINALYSIS NONAUTO W/O SCOPE 96156 Specific [place] 1.010 DateTime(Free Text in Aprima) URINALYSIS NONAUTO W/O SCOPE 49608 PH 6 DateTime(Free Text in Aprima) URINALYSIS NONAUTO W/O SCOPE 76407 GLUCOSE DateTime( Free Text in Aprima) URINALYSIS NONAUTO W/O SCOPE 38075 Protein DateTime( Free Text in Aprima) URINALYSIS NONAUTO W/O SCOPE 90836 Blood DateTime(Free Text in Aprima) URINALYSIS NONAUTO W/O SCOPE 24128 Bilirubin DateTime( Free Text in Aprima) URINALYSIS NONAUTO W/O SCOPE 71918 Ketones DateTime( Free Text in Aprima) URINALYSIS NONAUTO W/O SCOPE 29214 Urobilinogen DateTime (Free Text in Aprima) URINALYSIS NONAUTO W/O SCOPE 22788 Nitrite DateTime( Free Text in Aprima) URINALYSIS NONAUTO W/O SCOPE 97154 Leukocytes DateTime( Free Text in Aprima) UA 51501 Specific [place] 1.020 DateTime(Free Text in Aprima ) UA 15888 PH 6 DateTime(Free Text in Aprima) UA 83252 GLUCOSE neg DateTime(Free Text in Aprima) UA 96148 Protein neg DateTime(Free Text in Aprima) UA 37456 Blood neg DateTime(Free Text in Aprima) UA 91602 Bilirubin neg DateTime(Free Text in Aprima) UA 66290 Ketones neg DateTime(Free Text in Aprima) UA 98989 Urobilinogen neg DateTime(Free Text in Aprima) UA 14459 Nitrite neg DateTime(Free Text in Aprima) UA 44120 Leukocytes neg DateTime(Free Text in Aprima) BMI 83008-0 39.7 DateTime(Free Text in ) Blood Pressure [...] Date GLUC MONITOR CONT PHYS I&R CPT-4: 08695 04/27/2018 URINALYSIS NONAUTO W/O SCOPE CPT-4: 05930 04/10/2018 GLUCOSE MONITORING CONT CPT-4: 75608 04/10/2018 OCCULT BLOOD FECES CPT -4: 24225 02/22/2018 URINALYSIS NONAUTO W/O SCOPE CPT-4: 31832 02/20/2018 URINALYSIS NONAUTO W/O SCOPE CPT-4: 12065 12/14/2017 URINALYSIS NONAUTO W/O SCOPE CPT-4: 16040 11/27/2017 PPPS, SUBSEQ VISIT CPT -4: G0439 10/27/2017 GLUCOSE MONITORING CONT CPT-4: 77817 09/27/2017 URINALYSIS NONAUTO W/O SCOPE CPT-4: 28999 06/30/2017 URINALYSIS NONAUTO W/O SCOPE CPT-4: 13342 11/25/2016 URINALYSIS NONAUTO W/O SCOPE CPT-4: 94853 10/21/2016 URINALYSIS NONAUTO W/O SCOPE CPT-4: 72804 06/24/2016 URINALYSIS NONAUTO W/O SCOPE CPT-4: 75677 04/11/2016 ADMIN PNEUMOCOCCAL VACCINE SNOMED CT: [id number] CPT-4: G0009 02/26/2016 PNEUMOCOCCAL VACC 13 ANURADHA IM Formatting Model/CDA Sections, Assigned to/Jada Velazquez SNOMED CT: [id number] CPT-4: 53468Qqheoxk 02/26/2016 URINALYSIS NONAUTO W/O SCOPE CPT-4: 59173 02/10/2016 URINALYSIS NONAUTO W/O SCOPE CPT-4: 72027 11/27/2015 URINALYSIS NONAUTO W/O SCOPE CPT-4: 39014 11/02/2015 INITIAL PREVENTIVE EXAM CPT-4: G0402 09/29/2015 URINALYSIS NONAUTO W/O SCOPE CPT-4: 10715 07/20/2015 TRIAMCINOLONE ACET INJ NOS CPT-4: J3301 06/26/2015 URINALYSIS NONAUTO W/O SCOPE CPT-4: 59343 11/05/2014 URINALYSIS NONAUTO W/O SCOPE CPT-4: 59588 04/21/2014 CULTURE AEROBIC IDENTIFY CPT-4: 45374 12/12/2013 URINALYSIS NONAUTO W/O SCOPE CPT-4: 33449 11/18/2013 ROUTINE VENIPUNCTURE CPT-4: 79094 09/10/2013 ROUTINE VENIPUNCTURE CPT-4: 95608 08/01/2013 URINALYSIS NONAUTO W/O SCOPE CPT-4: 88304 06/28/2013 TRIAMCINOLONE ACET INJ NOS CPT-4: J3301 05/07/2013 DRAIN/INJECT JOINT/BURSA CPT-4: 19032 05/07/2013 ROUTINE VENIPUNCTURE CPT-4: 45579 03/21/2013 ROUTINE VENIPUNCTURE CPT-4: 72534 01/17/2013 URINALYSIS NONAUTO W/O SCOPE CPT-4: 55583 01/01/2013 ROUTINE VENIPUNCTURE CPT-4: 12554 12/31/2012 ROUTINE VENIPUNCTURE CPT-4: 42662 12/20/2012 URINALYSIS NONAUTO W/O SCOPE CPT-4: 23917 11/05/2012 DRAIN/INJECT JOINT/BURSA CPT-4: 32377 09/21/2012 TRIAMCINOLONE ACET INJ NOS CPT-4: J3301 09/21/2012 URINALYSIS NONAUTO W/O SCOPE CPT-4: 85695 07/19/2012 TRIAMCINOLONE ACET INJ NOS CPT-4: J3301 07/06/2012 Pneumococcal Polysaccharide Vaccine, 23-Valent, Ad CPT-4: 13140 06/07/2012 IMMUNIZATION ADMIN CPT -4: 04109 06/07/2012 TRIAMCINOLONE ACET INJ NOS CPT-4: J3301 05/02/2012 ROUTINE VENIPUNCTURE CPT-4: 50501 02/01/2012 URINALYSIS NONAUTO W/O SCOPE CPT-4: 99637 02/01/2012 TRIAMCINOLONE ACET INJ NOS CPT-4: J3301 12/14/2011 INJ TRIGGER POINT 1/2 MUSCL CPT-4: 47914 12/14/2011 PROMETHAZINE HCL INJECTION CPT-4: J2550 11/30/2011 ROUTINE VENIPUNCTURE CPT-4: 05727 11/30/2011 TRIAMCINOLONE ACET INJ NOS CPT-4: J3301 08/01/2011 DRAIN/INJECT JOINT/BURSA CPT-4: 43505 08/01/2011 THER/PROPH/DIAG INJ SC/IM CPT-4: 10355 04/18/2011 TRIAMCINOLONE ACET INJ NOS CPT-4: J3301 04/18/2011 Vital Signs Date Vital 04/27/2018 Blood Pressure 1: 122/54 Code : 8480-6 BMI: 39.7 Code : 90722-9 Heart Rate 1 : 84 bpm Height: 5'2" SpO2: 92% 04/10/2018 Blood Pressure 1: 120/68 Code : 8480-6 BMI: 39.7 Code : 69553-9 Heart Rate 1 : 87 bpm Height: 5'2" SpO2: 99% Weight: 217 lbs 03/12/2018 Blood Pressure 1: 140/70 Code : 8480-6 BMI: 40.2 Code : 12850-0 Heart Rate 1 : 78 bpm Height: 5'2" SpO2: 98% Weight: 220 lbs 02/20/2018 Blood Pressure 1: 140/70 Code : 8480-6 BMI: 40.2 Code : 34820-0 Heart Rate 1 : 96 bpm Height: 5'2" SpO2: 93% Weight: 220 lbs 11/27/2017 Blood Pressure 1: 158/78 Code : 8480-6 BMI: 40.8 Code : 53677-8 Heart Rate 1 : 100 bpm Height: 5'2" SpO2: 95% Weight: 223 lbs 10/27/2017 Blood Pressure 1: 146/70 Code : 8480-6 BMI: 41.3 Code : 37218-8 Heart Rate 1 : 82 bpm Height: 5'2" SpO2: 99% Waist Measure (cm): 119 cm Weight: 226 lbs 09/15/2017 Blood Pressure 1: 136/66 Code : 8480-6 BMI: 41.5 Code : 86966-0 Heart Rate 1 : 94 bpm Height: 5'2" SpO2: 96% Weight: 227 lbs 08/18/2017 Blood Pressure 1: 120/68 Code : 8480-6 BMI: 41.5 Code : 51335-5 Heart Rate 1 : 87 bpm Height: 5'2" SpO2: 94% Weight: 227 lbs 08/03/2017 Blood Pressure 1: 132/72 Code : 8480-6 BMI: 41.5 Code : 38497-2 Heart Rate 1 : 93 bpm Height: 5'2" SpO2: 95% Weight: 227 lbs 07/27/2017 Blood Pressure 1: 128/84 Code : 8480-6 BMI: 41.5 Code : 40342-6 Heart Rate 1 : 91 bpm Height: 5'2" SpO2: 98% Weight: 227 lbs 06/13/2017 Blood Pressure 1: 136/84 Code : 8480-6 BMI: 42.6 Code : 25922-9 Heart Rate 1 : 91 bpm Height: 5'2" SpO2: 94% Weight: 233 lbs 04/21/2017 Blood Pressure 1: 142/84 Code : 8480-6 BMI: 42.8 Code : 15037-3 Heart Rate 1 : 89 bpm Height: 5'2" SpO2: 94% Weight: 234 lbs 04/18/2017 Blood Pressure 1: 140/86 Code : 8480-6 BMI: 42.8 Code : 49099-5 Heart Rate 1 : 89 bpm Height: 5'2" SpO2: 97% Weight: 234 lbs 03/27/2017 Blood Pressure 1: 148/76 Code : 8480-6 BMI: 42.6 Code : 09043-5 Heart Rate 1 : 92 bpm Height: [...] Code : 8480-6 BMI: 44.3 Code : 26028-9 Heart Rate 1 : 90 bpm Height: 5'2" SpO2: 96% Weight: 242 lbs 01/30/2017 Blood Pressure 1: 132/72 Code : 8480-6 Heart Rate 1: 97 bpm Height: 5'2" SpO2: 96% Weight: 01/16/2017 Blood Pressure 1: 138/76 Code : 8480-6 BMI: 43.3 Code : 29054-2 Heart Rate 1 : 84 bpm Height: 5'2" SpO2: 99% Weight: 237 lbs 12/13/2016 Blood Pressure 1: 144/78 Code : 8480-6 Heart Rate 1: 96 bpm Height: 5'2" SpO2: 98% Temperature: 36.6 (C) / 97.9 (F) Weight: 11/11/2016 Blood Pressure 1: 144/80 Code : 8480-6 BMI: 43.0 Code : 87758-3 Heart Rate 1 : 89 bpm Height: 5'2" SpO2: 94% Temperature: 36.1 (C) / 97.0 (F) Weight: 235 lbs 10/28/2016 Blood Pressure 1: 156/82 Code : 8480-6 BMI: 43.9 Code : 72951-9 Heart Rate 1 : 78 bpm Height: [...] Code : 8480-6 BMI: 42.4 Code : 65503-9 Heart Rate 1 : 95 bpm Height: 5'2" SpO2: 98% Weight: 232 lbs 08/09/2016 Blood Pressure 1: 138/80 Code : 8480-6 BMI: 41.0 Code : 63602-5 Heart Rate 1 : 98 bpm Height: 5'2" SpO2: 97% Weight: 224 lbs 07/26/2016 Blood Pressure 1: 148/82 Code : 8480-6 BMI: 42.4 Code : 80543-9 Heart Rate 1 : 89 bpm Height: 5'2" SpO2: 97% Weight: 232 lbs 05/24/2016 Blood Pressure 1: 146/72 Code : 8480-6 BMI: 42.4 Code : 50653-3 Heart Rate 1 : 89 bpm Height: 5'2" SpO2: 99% Weight: 232 lbs 04/19/2016 Blood Pressure 1: 130/88 Code : 8480-6 BMI: 42.4 Code : 23165-3 Heart Rate 1 : 88 bpm Height: 5'2" SpO2: 98% Weight: 232 lbs 04/11/2016 Blood Pressure 1: 140/80 Code : 8480-6 BMI: 41.7 Code : 26976-3 Heart Rate 1 : 97 bpm Height: 5'2" SpO2: 95% Weight: 228 lbs 03/21/2016 Blood Pressure 1: 138/80 Code : 8480-6 BMI: 44.4 Code : 83638-8 Height: 5'2" Weight: 243 lbs 03/11/2016 Blood Pressure 1: 138/82 Code : 8480-6 BMI: 44.4 Code : 84712-8 Heart Rate 1 : 86 bpm Height: 5'2" SpO2: 95% Weight: 243 lbs 02/26/2016 Blood Pressure 1: 130/82 Code : 8480-6 BMI: 43.9 Code : 05114-8 Heart Rate 1 : 86 bpm Height: 5'2" SpO2: 97% Weight: 240 lbs 02/02/2016 Blood Pressure 1: 136/86 Code : 8480-6 Heart Rate 1: 56 bpm Height: SpO2: 96% Weight: 12/17/2015 Blood Pressure 1: 140/80 Code : 8480-6 BMI: 40.2 Code : 26252-4 Heart Rate 1 : 100 bpm Height: 5'2" SpO2: 99% Weight: 220 lbs 12/08/2015 Blood Pressure 1: 132/86 Code : 8480-6 Heart Rate 1: 100 bpm Height: SpO2: 97% Weight: 11/27/2015 Blood Pressure 1: 128/82 Code : 8480-6 BMI: 39.3 Code : 82256-6 Heart Rate 1 : 112 bpm Height: 5'2" SpO2: 96% Weight: 215 lbs 11/12/2015 Blood Pressure 1: 168/88 Code : 8480-6 Heart Rate 1: 106 bpm Height: 5'2" SpO2: 96% Weight: 11/10/2015 Blood Pressure 1: 156/80 Code : 8480-6 Heart Rate 1: 94 bpm Height: 5'2" SpO2: 96% Weight: 10/27/2015 Blood Pressure 1: 142/76 Code : 8480-6 BMI: 40.8 Code : 22475-5 Heart Rate 1 : 86 bpm Height: 5'2" SpO2: 97% Weight: 223 lbs 09/29/2015 Blood Pressure 1: 132/88 Code : 8480-6 BMI: 41.7 Code : 62268-2 Heart Rate 1 : 104 bpm Height: 5'2" SpO2: 94% Weight: 228 lbs 09/22/2015 Blood Pressure 1: 130/80 Code : 8480-6 BMI: 41.7 Code : 38393-2 Heart Rate 1 : 89 bpm Height: 5'2" SpO2: 97% Weight: 228 lbs 09/01/2015 Blood Pressure 1: 138/88 Code : 8480-6 BMI: 40.6 Code : 00548-3 Heart Rate 1 : 95 bpm Height: 5'2" SpO2: 95% Weight: 222 lbs 08/10/2015 Blood Pressure 1: 140/82 Code : 8480-6 BMI: 41.0 Code : 78099-5 Heart Rate 1 : 84 bpm Height: 5'2" SpO2: 97% Weight: 224 lbs 06/26/2015 Blood Pressure 1: 152/72 Code : 8480-6 BMI: 41.2 Code : 56302-2 Heart Rate 1 : 92 bpm Height: 5'2" SpO2: 96% Weight: 225 lbs 04/14/2015 Blood Pressure 1: 158/86 Code : 8480-6 BMI: 41.2 Code : 92066-5 Heart Rate 1 : 63 bpm Height: 5'2" SpO2: 93% Weight: 225 lbs 03/03/2015 Blood Pressure 1: 152/80 Code : 8480-6 BMI: 40.1 Code : 83343-9 Heart Rate 1 : 101 bpm Height: 5'2" SpO2: 97% Weight: 219 lbs 01/15/2015 Blood Pressure 1: 127/76 Code : 8480-6 BMI: 40.6 Code : 46562-1 Heart Rate 1 : 109 bpm Height: 5'2" SpO2: 97% Weight: 222 lbs 01/01/2015 Blood Pressure 1: 136/64 Code : 8480-6 BMI: 40.4 Code : 49055-3 Heart Rate 1 : 94 bpm Height: 5'2" SpO2: 96% Weight: 221 lbs 12/25/2014 Blood Pressure 1: 146/80 Code : 8480-6 Heart Rate 1: 95 bpm Height: 5'2" SpO2: 94% 11/04/2014 Blood Pressure 1: 110/70 Code : 8480-6 BMI: 40.2 Code : 31054-8 Heart Rate 1 : 878 bpm Height: 5'2" SpO2: 97% Weight: 220 lbs 09/08/2014 Blood Pressure 1: 142/78 Code : 8480-6 BMI: 39.5 Code : 56222-6 Heart Rate 1 : 97 bpm Height: 5'2" SpO2: 98% Weight: 216 lbs 08/29/2014 Blood Pressure 1: 140/90 Code : 8480-6 Blood Pressure 2: 120/70 Code: 8480-6 BMI: 40.2 Code: 62545-7 Heart Rate 1: 88 bpm Height: 5'2" Weight: 220 lbs 06/30/2014 Blood Pressure 1: 132/74 Code : 8480-6 BMI: 39.1 Code : 76324-2 Heart Rate 1 : 76 bpm Height: 5'2" Weight: 214 lbs 06/12/2014 Blood Pressure 1: 118/76 Code : 8480-6 BMI: 40.4 Code : 05221-4 Heart Rate 1 : 86 bpm Height: 5'2" SpO2: 96% Weight: 221 lbs 05/26/2014 Blood Pressure 1: 128/78 Code : 8480-6 BMI: 39.5 Code : 37817-9 Heart Rate 1 : 76 bpm Height: 5'2" Weight: 216 lbs 04/15/2014 Blood Pressure 1: 144/72 Code : 8480-6 BMI: 40.8 Code : 15136-4 Heart Rate 1 : 60 bpm Height: 5'2" Weight: 223 lbs 03/25/2014 Blood Pressure 1: 118/72 Code : 8480-6 BMI: 41.2 Code : 02196-8 Heart Rate 1 : 80 bpm Height: 5'2" Weight: 225 lbs 03/03/2014 Blood Pressure 1: 138/86 Code : 8480-6 BMI: 41.5 Code : 99508-6 Heart Rate 1 : 104 bpm Height: 5'2" Temperature: 36.1 (C) / 97.0 (F) Weight: 227 lbs 02/13/2014 Blood Pressure 1: 142/88 Code : 8480-6 BMI: 40.8 Code : 30186-9 Heart Rate 1 : 88 bpm Height: 5'2" Weight: 223 lbs 01/27/2014 Blood Pressure 1: 124/68 Code : 8480-6 BMI: 39.9 Code : 20703-9 Heart Rate 1 : 89 bpm Height: 5'2" SpO2: 94% Weight: 218 lbs 12/26/2013 Blood Pressure 1: 108/52 Code : 8480-6 BMI: 41.2 Code : 90557-9 Heart Rate 1 : 96 bpm Height: 5'2" Weight: 225 lbs 12/12/2013 Blood Pressure 1: 158/88 Code : 8480-6 BMI: 42.6 Code : 98021-4 Heart Rate 1 : 80 bpm Height: 5'2" Weight: 233 lbs 11/14/2013 Blood Pressure 1: 120/60 Code : 8480-6 BMI: 42.4 Code : 17204-1 Heart Rate 1 : 96 bpm Height: 5'2" Temperature: 5423.3 (C ) / 9794.0 (F) Weight: 232 lbs 10/21/2013 Blood Pressure 1: 100/60 Code : 8480-6 BMI: 41.9 Code : 18053-6 Heart Rate 1 : 96 bpm Height: 5'2" Weight: 229 lbs 10/03/2013 Blood Pressure 1: 122/72 Code : 8480-6 BMI: 42.3 Code : 97911-8 Heart Rate 1 : 84 bpm Height: 5'2" Weight: 231 lbs 09/27/2013 Blood Pressure 1: 112/58 Code : 8480-6 Heart Rate 1: 72 bpm SpO2: 93% Temperature: 36.2 (C) / 97.1 (F) Weight: 09/23/2013 Blood Pressure 1: 108/76 Code : 8480-6 BMI: 42.4 Code : 16837-8 Heart Rate 1 : 95 bpm Height: 5'2" SpO2: 96% Weight: 232 lbs 09/20/2013 Blood Pressure 1: 150/88 Code : 8480-6 BMI: 42.4 Code : 56459-5 Heart Rate 1 : 104 bpm Height: 5'2" Weight: 232 lbs 09/10/2013 Blood Pressure 1: 112/62 Code : 8480-6 Heart Rate 1: 88 bpm Weight: 238 lbs 08/19/2013 Blood Pressure 1: 102/58 Code : 8480-6 BMI: 43.7 Code : 85560-6 Heart Rate 1 : 80 bpm Height: 5'2" Weight: 239 lbs 08/12/2013 Blood Pressure 1: 110/60 Code : 8480-6 BMI: 43.3 Code : 83128-0 Heart Rate 1 : 90 bpm Height: 5'2" SpO2: 96% Weight: 236 lbs 8 oz 08/01/2013 Blood Pressure 1: 128/72 Code : 8480-6 BMI: 42.6 Code : 86745-4 Heart Rate 1 : 78 bpm Height: 5'2" SpO2: 97% Weight: 233 lbs 07/19/2013 Blood Pressure 1: 100/60 Code : 8480-6 BMI: 44.3 Code : 60477-7 Heart Rate 1 : 92 bpm Height: 5'2" Temperature: 36.2 (C) / 97.2 (F) Weight: 242 lbs 07/15/2013 Blood Pressure 1: 180/92 Code : 8480-6 Heart Rate 1: 115 bpm SpO2: 98% Weight: 06/27/2013 Blood Pressure 1: 114/64 Code : 8480-6 BMI: 44.1 Code : 44448-6 Heart Rate 1 : 114 bpm Height: 5'2" SpO2: 93% Weight: 241 lbs 06/10/2013 Blood Pressure 1: 174/86 Code : 8480-6 BMI: 44.1 Code : 41664-9 Heart Rate 1 : 132 bpm Height: 5'2" SpO2: 94% Temperature: 35.6 (C) / 96.0 (F) Weight: 241 lbs 05/07/2013 Blood Pressure 1: 160/88 Code : 8480-6 BMI: 43.5 Code : 08955-1 Heart Rate 1 : 108 bpm Height: 5'2" SpO2: 96% Weight: 238 lbs 04/16/2013 Blood Pressure 1: 116/62 Code : 8480-6 BMI: 44.6 Code : 11955-3 Heart Rate 1 : 90 bpm Height: 5'2" SpO2: 94% Weight: 244 lbs 03/21/2013 Blood Pressure 1: 102/64 Code : 8480-6 BMI: 42.8 Code : 41321-0 Height: 5'2" Weight: 234 lbs 02/12/2013 Blood Pressure 1: 130/78 Code : 8480-6 BMI: 42.0 Code : 05672-1 Heart Rate 1 : 100 bpm Height: 5'2" Weight: 229 lbs 8 oz 02/04/2013 Blood Pressure 1: 126/68 Code : 8480-6 BMI: 44.3 Code : 82857-4 Heart Rate 1 : 88 bpm Height: 5'2" Weight: 242 lbs 01/17/2013 Blood Pressure 1: 132/76 Code : 8480-6 Heart Rate 1: 121 bpm SpO2: 97% Weight: 242 lbs 12/31/2012 Blood Pressure 1: 144/90 Code : 8480-6 BMI: 43.0 Code : 37834-5 Heart Rate 1 : 96 bpm Height: 5'2" Temperature: 36.2 (C) / 97.2 (F) Weight: 235 lbs 12/20/2012 Blood Pressure 1: 156/96 Code : 8480-6 BMI: 42.4 Code : 84744-1 Heart Rate 1 : 96 bpm Height: [...] Code : 8480-6 BMI: 38.8 Code : 34167-1 Heart Rate 1 : 96 bpm Height: 5'2" Temperature: 36.3 (C) / 97.3 (F) Weight: 212 lbs 08/23/2012 Blood Pressure 1: 116/72 Code : 8480-6 BMI: 38.3 Code : 52271-0 Heart Rate 1 : 92 bpm Height: 5'2" Weight: 209 lbs 8 oz 08/13/2012 Blood Pressure 1: 140/92 Code : 8480-6 BMI: 37.3 Code : 34952-7 Heart Rate 1 : 104 bpm Height: 5'2" Weight: 204 lbs 08/07/2012 Blood Pressure 1: 148/98 Code : 8480-6 BMI: 36.6 Code : 48201-3 Heart Rate 1 : 102 bpm Height: [...] Code : 8480-6 BMI: 35.3 Code : 29523-0 Heart Rate 1 : 105 bpm Height: [...] december - she was seen by her counter stitcher again in mid 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 She states that she saw her counter stitcher and was to be started on another [...] Factors medication 09/10/2013 went to [facility] on Monday and start on Cipro diabetes [...] differently. States she did eat BBQ from [employer] yesterday for lunch. hypertension Quality [...] data Encounters Encounter Performer Location Codes Date ([id number]) [id number] EST. PATIENT, LEVEL III Diagnosis: Cough[ICD10: R05] Diagnosis: Chronic maxillary sinusitis[ICD10: J32.0] Diagnosis: Type 2 diabetes mellitus with hyperglycemia[ICD10: E11.65] Rika Motta MD, [facility] CPT-4: 32130 04/27/2018 [id number]) 27564 EST. PATIENT, LEVEL IV Diagnosis: Essential (primary) hypertension[ICD10: I10] Diagnosis: Type 2 diabetes mellitus with hyperglycemia[ICD10: E11.65] Diagnosis: Generalized anxiety disorder[ICD10: F41.1] Diagnosis: Weakness[ICD10: R53.1] Rika Motta MD, [facility] CPT-4: 47926 04/10/2018 ([id number]) 62380 EST. PATIENT, LEVEL IV Diagnosis: Type 2 diabetes mellitus with hyperglycemia[ICD10: E11.65] Diagnosis: Low back pain[ICD10: M54.5] Diagnosis: Essential (primary) hypertension[ICD10: I10] Diagnosis: Generalized anxiety disorder[ICD10: F41.1] Rika Motta MD, [facility] CPT-4: 45713 03/12/2018 ([id number]) 61213 EST. PATIENT, LEVEL III Diagnosis: Type 2 diabetes mellitus with hyperglycemia[ICD10: E11.65] Diagnosis: Essential (primary) hypertension[ICD10: I10] Diagnosis: Dysuria[ICD10: R30.0] Diagnosis: Vitamin D deficiency, unspecified[ICD10: E55.9] Diagnosis: Low back pain[ICD10: M54.5] Rika Motta MD, [facility] CPT-4: 22800 02/20/2018 ([id number]) 58567 EST. PATIENT, LEVEL III Diagnosis: Dysuria[ICD10: R30.0] Diagnosis: Essential (primary) hypertension[ICD10: I10] Rika Motta MD, [facility] CPT-4: 94319 11/27/2017 ([id number]) 97844 EST. PATIENT, LEVEL III Diagnosis: Type 2 diabetes mellitus with hyperglycemia[ICD10: E11.65] Diagnosis: Chronic pain syndrome[ICD10: G89.4] Rika Motta MD, [facility] CPT-4: 39638 09/15/2017 ([id number]) 43051 EST. 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 PATIENT, LEVEL III Diagnosis: Chronic maxillary sinusitis[ICD10: J32.0] Diagnosis: Type 2 diabetes mellitus with hyperglycemia[ICD10: E11.65] Diagnosis: Hordeolum externum left upper eyelid[ICD10: H00.014] Rika Motta MD, [facility] CPT-4: 33937 08/03/2017 ([id number]) 51593 EST. PATIENT, LEVEL IV Diagnosis: Type 2 diabetes mellitus with hyperglycemia[ICD10: E11.65] Diagnosis: Hordeolum externum left upper eyelid[ICD10: H00.014] Diagnosis: Essential (primary) hypertension[ICD10: I10] Diagnosis: Chronic obstructive pulmonary disease, unspecified[ICD10: J44.9] Rika Motta MD, [facility] CPT-4: 25182 07/27/2017 ([id number]) 25738 EST. PATIENT, LEVEL IV Diagnosis: Type 2 diabetes mellitus with hyperglycemia[ICD10: E11.65] Diagnosis: Essential (primary) hypertension[ICD10: I10] Tessie Motta MD, [facility] CPT-4: 22854 06/13/2017 60514 EST. PATIENT, LEVEL IV Diagnosis: Periapical abscess without sinus[ICD10: K04.7] Arlette Motta MD, [facility] CPT-4: 00507 04/21/2017 ([id number]) 11132 EST. PATIENT, LEVEL IV Diagnosis: Type 2 diabetes mellitus with hyperglycemia[ICD10: E11.65] Diagnosis: Cellulitis of abdominal wall[ICD10: L03.311] Diagnosis: Chronic pain syndrome[ICD10: G89.4] Diagnosis: Essential (primary) hypertension[ICD10: I10] Diagnosis: Unsteadiness on feet[ICD10: R26.81] Rika Motta MD, [facility] CPT-4: 38618 04/18/2017 ([id number]) 81875 EST. PATIENT, LEVEL IV Diagnosis: Type 2 diabetes mellitus with hyperglycemia[ICD10: E11.65] Diagnosis: Hypokalemia[ICD10: E87.6] Diagnosis: Essential (primary) hypertension[ICD10: I10] Diagnosis: Paroxysmal atrial fibrillation[ICD10: I48.0] Rika Motta MD, [facility] CPT-4: 45293 03/27/2017 ([id number]) 18059 EST. PATIENT, LEVEL IV Diagnosis: Essential (primary) hypertension[ICD10: I10] Diagnosis: Type 2 diabetes mellitus with hyperglycemia[ICD10: E11.65] Diagnosis: Hypokalemia[ICD10: E87.6] Diagnosis: Generalized abdominal pain[ICD10: R10.84] Rika Motta MD, [facility] CPT-4: 54713 02/27/2017 ([id number]) 06176 EST. PATIENT, LEVEL III Diagnosis: Drug induced constipation[ICD10: K59.03] Rika Motta MD, [facility] CPT-4: 10310 02/21/2017 ([id number]) 27556 EST. PATIENT, LEVEL IV Diagnosis: Generalized abdominal pain[ICD10: R10.84] Diagnosis: Hypokalemia[ICD10: E87.6] Diagnosis: Hypomagnesemia[ICD10: E83.42] Rika Motta MD, [facility] CPT-4: 91050 02/17/2017 [id number]) 33802 EST. PATIENT, LEVEL IV Diagnosis: Paroxysmal atrial fibrillation[ICD10: I48.0] Diagnosis: Essential (primary) hypertension[ICD10: I10] Diagnosis: Chronic obstructive pulmonary disease, unspecified[ICD10: J44.9] Diagnosis: Type 2 diabetes mellitus with hyperglycemia[ICD10: E11.65] Diagnosis: Diarrhea, unspecified[ICD10: R19.7] Rika Motta MD, [facility] CPT-4: 17376 02/13/2017 ([id number]) 81672 EST. PATIENT, LEVEL IV Diagnosis: Type 2 diabetes mellitus with hyperglycemia[ICD10: E11.65] Diagnosis: Pain in right shoulder[ICD10: M25.511] Diagnosis: Chronic maxillary sinusitis[ICD10: J32.0] Rika Motta MD, [facility] CPT-4: 09912 01/30/2017 ([id number]) 54321 EST. PATIENT, LEVEL IV Diagnosis: Essential (primary) hypertension[ICD10: I10] Diagnosis: Type 2 diabetes mellitus with hyperglycemia[ICD10: E11.65] Diagnosis: Hypothyroidism, unspecified[ICD10: E03.9] Diagnosis: Generalized anxiety disorder[ICD10: F41.1] Diagnosis: Chronic pain syndrome[ICD10: G89.4] Diagnosis: Restless legs syndrome[ICD10: G25.81] Diagnosis: Obstructive sleep apnea (adult) (pediatric)[ICD10: G47.33] Rika Motta MD, [facility] CPT-4: 49623 01/16/2017 22717 EST. PATIENT, LEVEL IV Diagnosis: Other acute sinusitis[ICD10: J01.80] Diagnosis: Diplopia[ICD10: H53.2] Arlette Motta MD, [facility] CPT-4: 80177 12/13/2016 ([id number]) 45654 EST. PATIENT, LEVEL IV Diagnosis: Essential (primary) hypertension[ICD10: I10] Diagnosis: Fasciculation[ICD10: R25.3] Diagnosis: Generalized anxiety disorder[ICD10: F41.1] Diagnosis: Other obesity due to excess calories[ICD10: E66.09] Diagnosis: Zoster without complications[ICD10: B02.9] Diagnosis: Unilateral primary osteoarthritis, right knee[ICD10: M17.11] Diagnosis: Unsteadiness on feet[ICD10: R26.81] Rika Motta MD, [facility] CPT-4: 51028 11/11/2016 ([id number]) 27843 EST. PATIENT, LEVEL IV Diagnosis: Zoster without complications[ICD10: B02.9] Diagnosis: Type 2 diabetes mellitus with hyperglycemia[ICD10: E11.65] Diagnosis: Vomiting, unspecified[ICD10: R11.10] Rika Motta MD, [facility] CPT-4: 89939 10/28/2016 ([id number]) 37338 EST. PATIENT, LEVEL III Diagnosis: Pain in right knee[ICD10: M25.561] Diagnosis: Zoster without complications[ICD10: B02.9] Rika Motta MD, [facility] CPT-4: 50196 10/13/2016 ([id number]) 21076 EST. PATIENT, LEVEL IV Diagnosis: Acute recurrent maxillary sinusitis[ICD10: J01.01] Diagnosis: Low back pain[ICD10: M54.5] Diagnosis: Pain in right knee[ICD10: M25.561] Diagnosis: Allergic rhinitis due to pollen[ICD10: J30.1] Rika Motta MD, [facility] CPT-4: 58472 09/23/2016 ([id number]) 56975 EST. PATIENT, LEVEL IV Diagnosis: Pain in right shoulder[ICD10: M25.511] Diagnosis: Type 2 diabetes mellitus with hyperglycemia[ICD10: E11.65] Diagnosis: Cervicalgia[ICD10: M54.2] Diagnosis: Candidiasis of skin and nail[ICD10: B37.2] Diagnosis: Low back pain[ICD10: M54.5] Rika Motta MD, [facility] CPT-4: 85344 09/13/2016 ([id number]) 96280 EST. 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 PATIENT, LEVEL IV Diagnosis: Type 2 diabetes mellitus with hyperglycemia[ICD10: E11.65] Diagnosis: Candidiasis of skin and nail[ICD10: B37.2] Diagnosis: Chronic obstructive pulmonary disease, unspecified[ICD10: J44.9] Diagnosis: Paroxysmal atrial fibrillation[ICD10: I48.0] Diagnosis: Pneumonia, unspecified organism[ICD10: J18.9] Rika Motta MD, [facility] CPT-4: 89974 07/26/2016 ([id number]) 20177 EST. PATIENT, LEVEL IV Diagnosis: Type 2 diabetes mellitus with hyperglycemia[ICD10: E11.65] Diagnosis: Generalized anxiety disorder[ICD10: F41.1] Diagnosis: Essential (primary) hypertension[ICD10: I10] Diagnosis: Chronic pain syndrome[ICD10: G89.4] Rika Motta MD, [facility] CPT-4: 86326 05/24/2016 ([id number]) 72136 EST. PATIENT, LEVEL IV Diagnosis: Menopausal and female climacteric states[ICD10: N95.1] Diagnosis: Type 2 diabetes mellitus with hyperglycemia[ICD10: E11.65] Diagnosis: Generalized anxiety disorder[ICD10: F41.1] Rika Motta MD, [facility] CPT-4: 77739 04/19/2016 ([id number]) 10709 EST. PATIENT, LEVEL IV Diagnosis: Type 2 diabetes mellitus with hyperglycemia[ICD10: E11.65] Diagnosis: Generalized anxiety disorder[ICD10: F41.1] Diagnosis: Essential (primary) hypertension[ICD10: I10] Diagnosis: Dysuria[ICD10: R30.0] Rika Motta MD, [facility] CPT-4: 41948 04/11/2016 ([id number]) 51298 EST. PATIENT, LEVEL IV Diagnosis: Generalized anxiety disorder[ICD10: F41.1] Diagnosis: Major depressive disorder, single episode, mild[ICD10: F32.0] Diagnosis: Hypothyroidism, unspecified[ICD10: E03.9] Diagnosis: Type 2 diabetes mellitus with hyperglycemia[ICD10: E11.65] Rika Motta MD, [facility] CPT-4: 11605 03/21/2016 ([id number] 72009 EST. PATIENT, LEVEL IV Diagnosis: Type 2 diabetes mellitus with hyperglycemia[ICD10: E11.65] Diagnosis: Cellulitis of right lower limb[ICD10: L03.115] Diagnosis: Other elevated white blood cell count[ICD10: D72.828] Diagnosis: Localized edema[ICD10: R60.0] Rika Motta MD, [facility] CPT-4: 27144 03/11/2016 ([id number]) 79161 EST. PATIENT, LEVEL IV Diagnosis: Type 2 diabetes mellitus with hyperglycemia[ICD10: E11.65] Diagnosis: Localized edema[ICD10: R60.0] Diagnosis: Other conjunctivitis[ICD10: H10.89] Diagnosis: Obstructive sleep apnea (adult) (pediatric)[ICD10: G47.33] Diagnosis: Unspecified asthma, uncomplicated[ICD10: J45.909] Diagnosis: VAC STREP PNEUMONIAE-FLU[ICD10: Z23] Rika Motta MD, [facility] CPT-4: 41127 02/26/2016 ([id number]) 83706 EST. PATIENT, LEVEL IV Diagnosis: Essential (primary) hypertension[ICD10: I10] Diagnosis: Paroxysmal atrial fibrillation[ICD10: I48.0] Diagnosis: Type 2 diabetes mellitus with hyperglycemia[ICD10: E11.65] Diagnosis: Obstructive sleep apnea (adult) (pediatric)[ICD10: G47.33] Diagnosis: Chronic obstructive pulmonary disease, unspecified[ICD10: J44.9] Rika Motta MD, [facility] CPT-4: 71250 02/02/2016 ([id number]) 10613 EST. 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 PATIENT, LEVEL IV Diagnosis: Type 2 diabetes mellitus with hyperglycemia[ICD10: E11.65] Diagnosis: Generalized anxiety disorder[ICD10: F41.1] Diagnosis: Essential (primary) hypertension[ICD10: I10] Diagnosis: Restless legs syndrome[ICD10: G25.81] Diagnosis: Dysuria[ICD10: R30.0] Rika Motta MD, [facility] CPT-4: 44076 11/27/2015 51687 EST. PATIENT, LEVEL IV Diagnosis: Addisonian crisis[ICD10: E27.2] Arlette Motta MD, [facility] CPT-4 : 61279 11/12/2015 59282 EST. PATIENT, LEVEL IV Diagnosis: Acute bronchitis due to other specified organisms[ICD10: J20.8] Diagnosis: Other acute sinusitis[ICD10: J01.80] Diagnosis: Other malaise[ICD10: R53.81] Diagnosis: Cough[ICD10: R05] Arlette Motta MD, [facility] CPT-4: 60446 11/10/2015 03848 EST. PATIENT, LEVEL IV Diagnosis: Pain in left knee[ICD10: M25.562] Diagnosis: Cellulitis of right toe[ICD10: L03.031] Arlette Motta MD, [facility] CPT-4: 38330 10/27/2015 ([id number]) 97079 EST. PATIENT, LEVEL IV Diagnosis: Essential (primary) hypertension[ICD10: I10] Diagnosis: Localized edema[ICD10: R60.0] Diagnosis: Type 2 diabetes mellitus with hyperglycemia[ICD10: E11.65] Rika Motta MD, [facility] CPT-4: 15657 09/22/2015 ([id number]) 96036 EST. PATIENT, LEVEL IV Diagnosis: Essential (primary) hypertension[ICD10: I10] Diagnosis: Type 2 diabetes mellitus with hyperglycemia[ICD10: E11.65] Diagnosis: Cellulitis of right toe[ICD10: L03.031] Rika Motta MD, [facility] CPT-4: 29733 09/01/2015 [id number] 58925 EST. PATIENT, LEVEL IV Diagnosis: Type 2 diabetes mellitus with hyperglycemia[ICD10: E11.65] Diagnosis: Essential (primary) hypertension[ICD10: I10] Diagnosis: Generalized anxiety disorder[ICD10: F41.1] Diagnosis: Hypothyroidism, unspecified[ICD10: E03.9] Diagnosis: Body mass index (BMI) 40.0-44.9, adult[ICD10: Z68.41] Rika Motta MD, [facility] CPT-4: 23465 08/10/2015 54641 EST. PATIENT, LEVEL IV Diagnosis: Acute bronchitis due to other specified organisms[ICD10: J20.8] Diagnosis: Pain in left knee[ICD10: M25.562] Diagnosis: Type 2 diabetes mellitus with hyperglycemia[ICD10: E11.65] Arlette Motta MD, [facility] CPT-4: 18984 06/26/2015 ([id number]) 69398 EST. PATIENT, LEVEL IV Diagnosis: Cellulitis of right lower limb[ICD10: L03.115] Diagnosis: Type 2 diabetes mellitus with hyperglycemia[ICD10: E11.65] Diagnosis: Essential (primary) hypertension[ICD10: I10] Diagnosis: Edema, unspecified[ICD10: R60.9] Rika Motta MD, [facility] CPT-4: 56165 04/14/2015 ([id number]) [id number] EST. PATIENT, LEVEL IV Diagnosis: Essential (primary) hypertension[ICD10: I10] Diagnosis: Type 2 diabetes mellitus with hyperglycemia[ICD10: E11.65] Diagnosis: Localized edema[ICD10: R60.0] Diagnosis: Dysuria[ICD10: R30.0] Rika Motta MD, [facility] CPT-4: 85911 03/03/2015 [id number]) [id number] EST. PATIENT, LEVEL III Diagnosis: Blister of leg[ICD9: 916.2] Diagnosis: Rash[ICD9: 782.1] Diagnosis: EDEMA[ICD9: 782.3] Tessie Motta MD, [facility] CPT-4: 84977 01/15/2015 ([id number]) 03135 EST. PATIENT, LEVEL IV Diagnosis: Cellulitis, leg[ICD9: 682.6] Diagnosis: DIABETES TYPE II[ICD9: 250.00] Tessie Motta MD, [facility] CPT- 4: 01636 01/01/2015 ([id number]) Miscellaneous no charge Diagnosis: CVA (cerebral vascular accident)[ICD9: 434.91] Isabella Brittny Motta MD, [facility] CPT-4: 79178 12/25/2014 ([id number]) 36536 EST. PATIENT, LEVEL IV Diagnosis: ESSENTIAL HYPERTENSION[ICD9: 401.9] Diagnosis: DM W/O COMPLICATION TYPE II, UNCONTROLLED[ICD9: 250.02] Diagnosis: EDEMA[ICD9: 782.3] Diagnosis: Dysuria[ICD9: 788.1] Rika Motta MD, [facility] CPT-4: 55563 11/04/2014 ([id number]) 06484 EST. PATIENT, LEVEL IV Diagnosis: EDEMA[ICD9: 782.3] Diagnosis: Cellulitis of right leg[ICD9: 682.6] Diagnosis: Allergic rhinitis[ICD9: 477.9] Rika Motta MD, [facility] CPT-4: 04274 09/08/2014 ([id number]) 17243 EST. PATIENT, LEVEL IV Diagnosis: EDEMA[ICD9: 782.3] Diagnosis: ESSENTIAL HYPERTENSION[ICD9: 401.9] Diagnosis: DIABETES TYPE II[ICD9: 250.00] Diagnosis: Cellulitis of right leg[ICD9: 682.6] Rika Motta MD, [facility] CPT-4: 62742 08/29/2014 ([id number]) 14787 EST. PATIENT, LEVEL III Diagnosis: EDEMA[ICD9: 782.3] Diagnosis: DIABETES TYPE II[ICD9: 250.00] Tessie Motta MD, [facility] CPT- 4: 45908 06/30/2014 ([id number]) 72536 EST. PATIENT, LEVEL IV Diagnosis: EDEMA[ICD9: 782.3] Diagnosis: DM W/O COMPLICATION TYPE II, UNCONTROLLED[ICD9: 250.02] Diagnosis: Sciatica[ICD9: 724.3] Tessie Motta MD, [facility] CPT-4: 44095 06/12/2014 ([id number]) 16164 EST. PATIENT, LEVEL III Diagnosis: Cellulitis, leg[ICD9: 682.6] Diagnosis: EDEMA[ICD9: 782.3] Rika Motta MD, [facility] CPT-4: 40103 05/26/2014 ([id number]) 37672 EST. PATIENT, LEVEL IV Diagnosis: DIABETES TYPE II[ICD9: 250.00] Diagnosis: Chronic sinusitis[ICD9: 473.9] Tessie Motta MD, [facility] CPT- 4: 50942 04/15/2014 ([id number]) 81275 EST. PATIENT, LEVEL IV Diagnosis: DM W/O COMPLICATION TYPE II, UNCONTROLLED[ICD9: 250.02] Diagnosis: CHRONIC SINUSITIS[ICD9: 473.9] Diagnosis: EDEMA[ICD9: 782.3] Diagnosis: Right knee pain[ICD9: 719.46] Rika Motta MD [facility] CPT-4: 59180 03/25/2014 ([id number]) 86233 EST. PATIENT, LEVEL IV Diagnosis: Blister of leg[ICD9: 916.2] Diagnosis: EDEMA[ICD9: 782.3] Diagnosis: DM W/O COMPLICATION TYPE II, UNCONTROLLED[ICD9: 250.02] Diagnosis: ESSENTIAL HYPERTENSION[ICD9: 401.9] Rika Motta MD [facility] CPT-4: 78115 03/03/2014 ([id number]) 16175 EST. PATIENT, LEVEL IV Diagnosis: CELLULITIS OF LEG[ICD9: 682.6] Diagnosis: Diabetes mellitus type 2, uncontrolled[ICD9: 250.02] Diagnosis: ESSENTIAL HYPERTENSION[ICD9: 401.9] Diagnosis: EDEMA[ICD9: 782.3] Tessie Motta MD, [facility] CPT-4: 52222 02/13/2014 ([id number]) 09280 EST. PATIENT, LEVEL IV Diagnosis: Diabetes mellitus type 2, uncontrolled[ICD9: 250.02] Tessie Motta MD, [facility] CPT-4: 03071 01/27/2014 ([id number]) 26861 EST. PATIENT, LEVEL III Diagnosis: OPEN WND KNEE/LEG/ANKLE[ICD9: 891.0] Diagnosis: EDEMA[ICD9: 782.3] Rika Motta MD, [facility] CPT-4: 03443 12/26/2013 ([id number]) 92689 EST. PATIENT, LEVEL III Diagnosis: Cellulitis of right leg[ICD9: 682.6] Diagnosis: OPEN WND KNEE/LEG/ANKLE[ICD9: 891.0] Rika Motta MD [facility] CPT-4: 45181 12/12/2013 ([id number]) 89705 EST. PATIENT, LEVEL IV Diagnosis: Asthma exacerbation[ICD9: 493.92] Diagnosis: COUGH[ICD9: 786.2] Diagnosis: EDEMA[ICD9: 782.3] Rika Motta MD [facility] CPT-4: 96490 11/14/2013 ([id number]) 71914 EST. PATIENT, LEVEL III Diagnosis: OPEN WND KNEE/LEG/ANKLE[ICD9: 891.0] Diagnosis: EDEMA[ICD9: 782.3] Rika Motta MD [facility] CPT-4: 34139 10/21/2013 ([id number]) 04586 EST. PATIENT, LEVEL IV Diagnosis: ESSENTIAL HYPERTENSION[SNOMED: 66446673] Diagnosis: Right knee pain[ICD9: 719.46] Diagnosis: OPEN WND KNEE/LEG/ANKLE[ICD9: 891.0] Rika Motta MD [facility] CPT-4: 95707 10/03/2013 ([id number]) Miscellaneous no charge Diagnosis: Open wound of leg[ICD9: 891.0] Rika Motta MD [facility] CPT-4: 75400 09/27/2013 79791 EST. PATIENT, LEVEL II Diagnosis: Open wound of leg[ICD9: 891.0] Diagnosis: Wrist pain, left[ICD9: 719.43] Rika Motta MD [facility] CPT-4: 29212 09/23/2013 ([id number]) 60282 EST. PATIENT, LEVEL IV Diagnosis: CELLULITIS OF LEG[ICD9: 682.6] Diagnosis: ESSENTIAL HYPERTENSION[SNOMED: 94337106] Diagnosis: EDEMA[ICD9: 782.3] Rika Motta MD, [facility] CPT-4: 63820 09/20/2013 ([id number]) 45886 EST. PATIENT, LEVEL IV Diagnosis: Open wound of right lower leg[ICD9: 891.0] Diagnosis: DM W/O COMPLICATION TYPE II, UNCONTROLLED[SNOMED: 81653085] Diagnosis: Edema[ICD9: 782.3] Rika Motta MD [facility] CPT-4: 15485 09/10/2013 ([id number]) 00499 EST. PATIENT, LEVEL III Diagnosis: DM W/O COMPLICATION TYPE II, UNCONTROLLED[SNOMED: 70819475] Diagnosis: EDEMA[ICD9: 782.3] Tessie Motta MD, [facility] CPT-4: 07177 08/19/2013 ([id number]) 71052 EST. PATIENT, LEVEL IV Diagnosis: EDEMA[ICD9: 782.3] Diagnosis: DIABETES TYPE II[SNOMED: 921961818] Diagnosis: HYPOTHYROIDISM[ICD9: 244.9] Diagnosis: LUMBAGO[ICD9: 724.2] Diagnosis: SCIATICA[ICD9: 724.3] Tessie Motta MD, [facility] CPT-4: 57301 08/12/2013 ([id number]) 53432 EST. PATIENT, LEVEL IV Diagnosis: DIABETES TYPE II[SNOMED: 617278907] Diagnosis: EDEMA[ICD9: 782.3] Diagnosis: HYPOTHYROIDISM[ICD9: 244.9] Diagnosis: Encounter for long-term (current) use of other medications[ICD9: V58.69] Diagnosis: LUMBAGO[ICD9: 724.2] Rika Motta MD, [facility] CPT-4: 43902 08/01/2013 ([id number]) 59033 EST. PATIENT, LEVEL III Diagnosis: Blister of right foot[ICD9: 917.2] Rika Motta MD, [facility] CPT-4: 32420 07/19/2013 ([id number]) 38495 EST. PATIENT, LEVEL III Diagnosis: Cellulitis of right leg[ICD9: 682.6] Diagnosis: ESSENTIAL HYPERTENSION[SNOMED: 37603718] Diagnosis: EDEMA[ICD9: 782.3] Rika Motta MD, [facility] CPT-4: 94323 07/15/2013 ([id number]) 98629 EST. PATIENT, LEVEL IV Diagnosis: DIABETES TYPE II[SNOMED: 919872538] Diagnosis: BACKACHE[ICD9: 724.5] Diagnosis: Muscle spasms of neck[ICD9: 728.85] Tessie Motta MD, [facility] CPT-4: 31614 06/27/2013 ([id number]) 17037 EST. PATIENT, LEVEL IV Diagnosis: DM W/O COMPLICATION TYPE II, UNCONTROLLED[SNOMED: 63209282] Diagnosis: EDEMA[ICD9: 782.3] Diagnosis: OBESITY[ICD9: 278.00] Diagnosis: WHEEZING[ICD9: 786.07] Tessie Motta MD [facility] CPT-4: 63050 06/10/2013 ([id number]) 07601 EST. PATIENT, LEVEL IV Diagnosis: CHRONIC SINUSITIS[ICD9: 473.9] Diagnosis: WHEEZING[ICD9: 786.07] Diagnosis: ACUTE BRONCHITIS[ICD9: 466.0] Diagnosis: Back pain[ICD9: 724.5] Tessie Motta MD, [facility] CPT-4: 75984 05/07/2013 ([id number]) 09456 EST. PATIENT, LEVEL IV Diagnosis: EDEMA[ICD9: 782.3] Diagnosis: COPD (chronic obstructive pulmonary disease) with acute bronchitis[ ICD9: 491.22] Tessie Motta MD [facility] CPT-4: 07891 04/16/2013 ([id number]) 06139 EST. PATIENT, LEVEL IV Diagnosis: Lumbago[ICD9: 724.2] Diagnosis: DM W/O COMPLICATION TYPE II, UNCONTROLLED[SNOMED: 50115885] Diagnosis: EDEMA[ICD9: 782.3] Rika Motta MD, [facility] CPT-4: 83974 03/21/2013 ([id number]) 71086 EST. PATIENT, LEVEL IV Diagnosis: Abdominal pain[ICD9: 789.00] Diagnosis: EDEMA[ICD9: 782.3] Diagnosis: DIABETES TYPE II[SNOMED: 885185194] Tessie Motta MD, [facility] CPT-4: 11146 02/12/2013 ([id number]) 41121 EST. PATIENT, LEVEL III Diagnosis: EDEMA[ICD9: 782.3] Diagnosis: RESPIRATORY ABNORM NEC[ICD9: 786.09] Tessie Motta MD [facility] CPT-4: 52146 02/04/2013 ([id number]) 32332 EST. PATIENT, LEVEL IV Diagnosis: Edema[ICD9: 782.3] Diagnosis: ESSENTIAL HYPERTENSION[SNOMED: 73109771] Tessie Motta MD [facility] CPT-4: 81002 01/17/2013 ([id number]) 21517 EST. 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 PATIENT, LEVEL IV Diagnosis: Cellulitis of left leg[ICD9: 682.6] Diagnosis: DIABETES TYPE II[SNOMED: 674290522] Diagnosis: ESSENTIAL HYPERTENSION[SNOMED: 86304839] Diagnosis: EDEMA[ICD9: 782.3] Rika Motta MD [facility] CPT-4: 85793 12/20/2012 ([id number]) 26877 EST. PATIENT, LEVEL III Diagnosis: Acute bronchitis[ICD9: 466.0] Diagnosis: COUGH[ICD9: 786.2] Tessie Motta MD [facility] CPT-4: 13455 10/29/2012 ([id number]) 76832 EST. PATIENT, LEVEL IV Diagnosis: ESSENTIAL HYPERTENSION[SNOMED: 95770632] Diagnosis: DIABETES TYPE II[SNOMED: 111144722] Diagnosis: HYPOTHYROIDISM[ICD9: 244.9] Tessie Motta MD [facility] CPT- 4: 21227 09/06/2012 ([id number]) 27415 EST. PATIENT, LEVEL IV Diagnosis: DIABETES TYPE II[SNOMED: 199010337] Diagnosis: ESSENTIAL HYPERTENSION[SNOMED: 91613624] Diagnosis: Diarrhea[ICD9: 787.91] Tessie Motta MD, [facility] CPT-4: 03025 08/23/2012 ([id number]) 13252 EST. PATIENT, LEVEL III Diagnosis: ESSENTIAL HYPERTENSION[SNOMED: 83653503] Diagnosis: Gastroenteritis[ICD9: 558.9] Rika Motta MD [facility] CPT-4: 52888 08/13/2012 ([id number]) 02178 EST. PATIENT, LEVEL IV Diagnosis: Diarrhea[ICD9: 787.91] Diagnosis: ESSENTIAL HYPERTENSION[SNOMED: 06252385] Diagnosis: DM W/O COMPLICATION TYPE II, UNCONTROLLED[SNOMED: 55467423] Rika Motta MD, [facility] CPT-4: 25022 08/07/2012 ([id number]) 76640 EST. PATIENT, LEVEL III Diagnosis: Acute sinusitis[ICD9: 461.9] Diagnosis: Thrush[ICD9: 112.0] Rika Motta MD [facility] CPT-4: 57538 07/06/2012 ([id number]) 27959 EST. PATIENT, LEVEL IV Diagnosis: ESSENTIAL HYPERTENSION[SNOMED: 71817748] Diagnosis: DIABETES TYPE II[SNOMED: 637561676] Tessie Motta MD, [facility] CPT-4: 33784 06/07/2012 ([id number]) 31801 EST. PATIENT, LEVEL IV Diagnosis: ESSENTIAL HYPERTENSION[SNOMED: 56368326] Diagnosis: ACUTE SINUSITIS[ICD9: 461.9] Diagnosis: Labial cyst[ICD9: 624.8] Tessie Motta MD [facility] CPT-4: 40492 05/28/2012 (75326) 60360 EST. PATIENT, LEVEL IV Diagnosis: ESSENTIAL HYPERTENSION[SNOMED: 80405233] Diagnosis: EDEMA[ICD9: 782.3] Tessie Motta MD [facility] CPT-4: 62702 05/17/2012 ([id number]) 90071 EST. PATIENT, LEVEL IV Diagnosis: EDEMA[ICD9: 782.3] Diagnosis: ESSENTIAL HYPERTENSION[SNOMED: 75684049] Diagnosis: Diarrhea[ICD9: 787.91] Diagnosis: ALLERGIC RHINITIS[ICD9: 477.9] Tessie Motta MD, [facility] CPT- 4: 97324 05/02/2012 ([id number]) 38498 EST. PATIENT, LEVEL IV Diagnosis: ACUTE SINUSITIS[ICD9: 461.9] Diagnosis: ESSENTIAL HYPERTENSION[SNOMED: 38285994] Diagnosis: ALLERGIC RHINITIS[ICD9: 477.9] Tessie Motta MD [facility] CPT- 4: 05219 04/10/2012 ([id number]) 20114 EST. PATIENT, LEVEL IV Diagnosis: ESSENTIAL HYPERTENSION[SNOMED: 75599872] Diagnosis: Foreign body in foot or toe[ICD9: 917.6] Diagnosis: EDEMA[ICD9: 782.3] Tessie Motta MD [facility] CPT-4: 98567 02/27/2012 ([id number]) 93393 EST. PATIENT, LEVEL IV Diagnosis: CELLULITIS OF FOOT[ICD9: 682.7] Diagnosis: DIABETES TYPE II[SNOMED: 772992791] Diagnosis: EDEMA[ICD9: 782.3] Tessie Motta MD [facility] CPT-4: 79092 02/15/2012 ([id number]) 24279 EST. PATIENT, LEVEL IV Diagnosis: EDEMA[ICD9: 782.3] Diagnosis: ESSENTIAL HYPERTENSION[SNOMED: 80452132] Diagnosis: ACUTE SINUSITIS[ICD9: 461.9] Diagnosis: Dysuria[ICD9: 788.1] Tessie Motta MD [facility] CPT-4: 29744 02/01/2012 ([id number]) 00459 EST. PATIENT, LEVEL IV Diagnosis: DIABETES TYPE II[SNOMED: 885204947] Diagnosis: Diverticulitis[ICD9: 562.11] Tessie Motta MD [facility] CPT- 4: 64819 12/14/2011 ([id number]) 64656 EST. PATIENT, LEVEL IV Diagnosis: Nausea vomiting and diarrhea[ICD9: 787.01] Diagnosis: ESSENTIAL HYPERTENSION[SNOMED: 76020703] Diagnosis: DM W/O COMPLICATION TYPE II, UNCONTROLLED[SNOMED: 23839438] Tessie Motta MD [facility] CPT-4: 46822 11/30/2011 ([id number]) 61950 EST. PATIENT, LEVEL IV Diagnosis: ESSENTIAL HYPERTENSION[SNOMED: 30137595] Diagnosis: DIABETES TYPE II[SNOMED: 132897625] Diagnosis: COUGH[ICD9: 786.2] Tessie Motta MD, [facility] CPT-4: 99063 11/17/2011 ([id number]) Patient admitted to the hospital from clinic (NO CHARGE) Diagnosis: Tachycardia[ICD9: 785.0] Diagnosis: Dyspnea[ICD9: 786.09] Diagnosis: Wheezing[ICD9: 786.07] Diagnosis: FALL AGAINST OBJECT[ICD9: E888.1] Diagnosis: ANXIETY STATE[ICD9: 300.00] Diagnosis: ESSENTIAL HYPERTENSION[SNOMED: 10673339] Diagnosis: Chronic depression[ICD9: 311] Diagnosis: Diabetes mellitus type 2, uncontrolled[SNOMED: 96065852] Tessie Motta MD, [facility] CPT-4: 35315I 11/03/2011 ([id number]) 41850 EST. PATIENT, LEVEL IV Diagnosis: DIABETES TYPE II[SNOMED: 898264131] Diagnosis: ANXIETY STATE[ICD9: 300.00] Diagnosis: DEPRESSIVE DISORDER NEC[ICD9: 311] Diagnosis: Ulcer of toe[ICD9: 707.15] Tessie Motta MD, [facility] CPT- 4: 16660 10/24/2011 ([id number]) 67690 EST. PATIENT, LEVEL IV Diagnosis: EDEMA[ICD9: 782.3] Diagnosis: ESSENTIAL HYPERTENSION[SNOMED: 10816258] Diagnosis: ANXIETY STATE[ICD9: 300.00] Tessie Motta MD, [facility] CPT- 4: 00947 09/26/2011 46177 EST. PATIENT, LEVEL IV Diagnosis: EDEMA[ICD9: 782.3] Diagnosis: ESSENTIAL HYPERTENSION[SNOMED: 48356983] Rika Motta MD, [facility] CPT-4: 04090 09/20/2011 ([id number]) 55507 EST. PATIENT, LEVEL IV Diagnosis: ACUTE SINUSITIS[ICD9: 461.9] Diagnosis: Allergic rhinitis[ICD9: 477.9] Diagnosis: Cough[ICD9: 786.2] Tessie Motta MD, [facility] CPT-4: 97068 09/01/2011 ([id number]) 74857 EST. PATIENT, LEVEL IV Diagnosis: Chronic sinusitis[ICD9: 473.9] Diagnosis: Anxiety, generalized[ICD9: 300.02] Tessie Motta MD, [facility] CPT-4: 84548 08/15/2011 27682 EST. PATIENT, LEVEL IV Diagnosis: ACUTE SINUSITIS[ICD9: 461.9] Diagnosis: Tachycardia[ICD9: 785.0] Diagnosis: Anxiety[ICD9: 300.00] Diagnosis: Dehydration[ICD9: 276.51] Diagnosis: Sciatica[ICD9: 724.3] Tessie Motta MD, [facility] CPT-4: 37023 08/09/2011 18514 EST. PATIENT, LEVEL IV Diagnosis: DIABETES TYPE II[SNOMED: 092677932] Diagnosis: Sciatica[ICD9: 724.3] Diagnosis: Yeast infection[ICD9: 112.9] Tessie Motta MD, [facility] CPT- 4: 82842 08/01/2011 ([id number]) 27383 EST. PATIENT, LEVEL IV Diagnosis: DIABETES TYPE II[SNOMED: 859218156] Diagnosis: ACUTE MAXILLARY SINUSITIS[ICD9: 461.0] Diagnosis: Fibromyalgia[ICD9: 729.1] Tessie Motta MD, [facility] CPT-4: 65655 06/20/2011 32848 EST. PATIENT, LEVEL IV Diagnosis: ESSENTIAL HYPERTENSION[SNOMED: 39827896] Diagnosis: DIABETES TYPE II[SNOMED: 151343941] Diagnosis: ACUTE MAXILLARY SINUSITIS[ICD9: 461.0] Tessie Motta MD, [facility] CPT-4: 87806 04/18/2011 Plan of Care Planned Activity Notes [...] verbalized understanding. 04/27/2018 Appointment: Rika Bello WPtel: [address] [place], [place] [phone] [place] (30 min) Complex 04/27/2018 Patient Education: Patient Medication Summary Completed 04/27/2018 Appointment: Rika Bello WPtel: [phone] (15 min) Moderate 04/24/2018 Appointment: Nurse Visit [...] and return Monday for removal of IPRO Iealyos-hwnlnavqwk-jp changes in medications-recommend counseling-patient refuses Weakness-patient is deconditioned-refuses PT -recommend patient start walking more 04/10/2018 Appointment: Rika Bello WPtel: [phone] (15 min) Moderate 04/10/2018 Patient Education: Patient Medication Summary Completed 04/10/2018 Appointment: Arlette Skelton WPtel: [facility] (15 min) Moderate 03/21/2018 Appointment: Rika Bello WPtel: [address] [place], [place] [phone] (30 min) Complex 03/20/2018 Visit Plan: Hypertension [...] as directed 03/12/2018 Appointment: Rika Bello WPtel: [address] [place], [place] [phone] (15 min) Moderate 03/12/2018 Patient Education: Patient Medication Summary Completed 03/12/2018 Patient Education: Back Pain Completed 03/12/2018 Appointment: Rkia Bello WPtel: [address] [place], [place] [phone] (30 min) Complex 03/08/2018 Appointment: Lab Draw [...] next refill 02/20/2018 Appointment: Rika Bello WPtel: [address] [place], [place] [phone] (15 min) Moderate 02/20/2018 Patient Education: Patient Medication Summary Completed 02/20/2018 Patient Education: Back Pain Completed 02/20/2018 Patient Education: Patient Medication Summary Completed 02/20/2018 Care Plan: Iron Pending 02/20/2018 Appointment: Rika Bello WPtel: [address] [place], [place] [phone] (30 min) Complex 02/19/2018 Appointment: Rika Bello WPtel: [address] [place] [phone] [place] (15 min) Moderate 02/01/2018 Visit Plan: UA negative -no culture indicated 12/14/2017 Appointment: Lab Draw 12/14/2017 Patient Education: Patient Medication Summary Completed 12/14/2017 Visit Plan: Dysuria-urinary incontinence-culture urine HTN- elevated today-monitor at home -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 with oil heat technician 11/27/2017 Appointment: Ace Rika WPtel: [address] [phone] (15 min) Moderate 11/27/2017 Patient Education: Patient [...] Completed 10/27/2017 Care Plan: SCREENINGMAMMOGRAPHYDIGITAL LOINC : 41081-5 Pending 10/27/2017 Appointment: Arlette Skelton WPtel: [address] [facility] (15 min) Moderate 10/03/2017 Appointment: Arlette Skelton WPtel: [address] [facility] (15 min) Moderate 10/02/2017 Appointment: Rika Bello WPtel: [address] [phone] [place] (30 min) Complex 09/29/2017 Visit Plan: [...] worsened. 09/27/2017 Appointment: Arlette Skelton WPtel: [facility] (30 min) Complex 09/27/2017 Patient Education: Patient Medication Summary Completed 09/27/2017 Care Plan: CT HEAD/BRAIN W/O DYE LOINC : 32448-8 Pending 09/27/2017 Visit Plan: DM-patient noncompliant with [...] medication. 09/15/2017 Appointment: Rika Bello WPtel: [phone] (30 min) Complex 09/15/2017 Patient Education: Patient Medication Summary Completed 09/15/2017 Appointment: Rika Bello WPtel: [phone] (30 min) Complex 09/12/2017 Appointment: Rika Bello WPtel: [phone] (30 min) Complex 09/07/2017 Visit Plan: Zjp-zsosetrmfp-cf changes Anemia-check cbc today Dental infection-on clindamycin per Dr Bryant-start probiotics Also needs to monitor blood sugars closely 08/18/2017 Appointment: Rika Bello WPtel: [phone] (30 min) Complex 08/18/2017 Patient Education: Patient [...] resolve 08/03/2017 Appointment: Rika Bello WPtel: [phone] (30 min) Complex 08/03/2017 Patient Education: Patient [...] worsen 07/27/2017 Appointment: Rika Bello WPtel: [phone] [phone] (30 min) [facility] 07/27/2017 [...] in medications 06/13/2017 Appointment: [facility] [address] [facility] [place] (15 min) Moderate 06/13/2017 Patient Education: Patient Medication Summary Completed 06/13/2017 Visit Plan: Dental abscess - will send RX - pt is to keep her appointment with her dentist - pt is to notify clinic if symptoms do not improve, if they worsen, or with any other acute changes, questions, or concerns. 04/21/2017 Appointment: Arlette Skelton WPtel: [phone] [phone] (30 min) Complex 04/21/2017 Patient Education: Patient [...] Q HS RESCHEDULE APPT WITH DR YANNA HoZcdcbhqfo-bammpckcg-me for bactroban ointment provided and instructed on use PEH-yexacitpqe-af change in medications Mildly elevated liver enzymes-discussed with Dr motta-suspect due to gabapentin-will monitor levels Gait instability-again recommend patient use walker as well as PT 04/18/2017 Appointment: Rika Bello WPtel: [phone] [phone] [place] (30 min) Complex 04/18/2017 Patient Education: [...] become less controlled. Low potassium- check labs YLD-xtdkapvdjx-qq changes Afib-check digoxin level with labs Abdominal [...] become less controlled. Low potassium- check labs MBU-mmwbmnycog-pk changes Afib-check digoxin level with labs Abdominal pain-refill levsin for prn use -call if pain uncontrolled 03/27/2017 Appointment: Rika Bello WPtel: [address] [place], [place] [phone] (30 min) Complex 03/27/2017 Patient Education: Patient Medication Summary Completed 03/27/2017 Appointment: Rika Bello WPtel: [address] [place], [place] [phone] (30 min) Complex 03/24/2017 Visit Plan: Hypertension - well controlled - continue with current medications, continue with no added salt diet. Pt has been encouraged to exercise daily. The pt has been advised to call the office if there are any acute concerns about change in blood pressure readings at home. DM-uncontrolled- discussed strict diet and exercise with patient Low jeteyuqsl-rlytmasv-ygfxckbr to monitor Abd nrol-jzfwgowz-xt changes 02/27/2017 Appointment: Rika Bello WPtel: [phone] (30 min) Complex 02/27/2017 Patient Education: Patient [...] this regimen. 02/21/2017 Appointment: Rika Bello WPtel: [phone] [phone] [place] (30 min) Complex 02/21/2017 Patient Education: Patient Medication Summary Completed 02/21/2017 Appointment: Rika Bello WPtel: [address] [phone] [place] (30 min) Complex 02/20/2017 Visit Plan: [...] on Monday02/17/2017 Appointment: Rika Bello WPtel: [phone] [phone] [place] (30 min) Complex 02/17/2017 Patient Education: Patient Medication Summary Completed 02/17/2017 Visit Plan: COPD-recent hospitalization with pneumonia- symptoms improved-discussed continuous oxygen use at home-appt with Dr Odonnell tomorrow Afib-check digoxin level-patient just finished zpack Diarrhea-continue probiotics-check stool if diarrhea persists DM-bring log to next appt 02/13/2017 Appointment: Rika Bello WPtel: [address] [phone] (30 min) Complex 02/13/2017 Patient Education: Patient Medication Summary Completed 02/13/2017 Patient Education: Hypertension Completed 02/13/2017 Visit Plan: DM-very uncontrolled-refer to Dr Raines for management RIght shoulder and arm pain-fell 5 days ago-xray shoulder and arm Chronic sinusitis-RX for Dr Cervantes's compound gentamicin nasal spray 01/30/2017 Appointment: Rika Bello WPtel: [phone] (30 min) Complex 01/30/2017 Patient Education: Patient Medication Summary Completed 01/30/2017 Care Plan: Referral Order SNOMED-CT : 460267347 Pending 01/30/2017 Visit Plan: Hypertension - well [...] every night DM-check Hgb A1C Hypothyroidism-check level Keekcxl-geusmwchoz-dpl well controlled- increase cymbalta-recommend counseling 01/16/2017 Appointment: Rika Bello WPtel: [phone] [phone] (30 min) Complex 01/16/2017 Patient Education: Patient Medication Summary Completed 01/16/2017 Appointment: Rika Bello WPtel: [phone] (30 min) Complex 01/10/2017 Visit Plan: Sinusitis [...] concerns. 12/13/2016 Appointment: Arlette Skelton WPtel: [address] [facility] (30 min) Complex 12/13/2016 Patient Education: Patient [...] completely heal. 11/11/2016 Appointment: Rika Bello WPtel: [address] [place] [phone] (30 min) [facility] 11/11/2016 Patient Education: Patient Medication Summary Completed 11/11/2016 Care Plan: BMI Above normal followup SELF-MGMT EDUC & TRAIN 1 PT Pending 2016 Appointment: Rika Bello WPtel: [address] [place], [place] [phone] (30 min) Complex 11/08/2016 Visit Plan: Shingles-rash scabbed-no further treatment indicated-patient to call if pain uncontrolled N/V-check labs including UA DM- check labs today Thrush-RX for nystatin 10/28/2016 Appointment: Rika Bello WPtel: [address] [place], [place] [phone] (30 min) Complex 10/28/2016 Patient Education: Patient Medication Summary Completed 10/28/2016 Patient Education: Obesity Completed 10/28/2016 Appointment: Rika Bello WPtel: [address] [place], [place] [phone] (30 min) Complex 10/25/2016 Appointment: Lab Draw 10/21/2016 Patient Education: Patient Medication Summary Completed 10/21/2016 Visit Plan: Right knee pain-patient to schedule appt with Dr Allison Garcia-right arm-concerned for shingles-RX for acyclovir provided and instructed on use-call if symptoms do not resolve or if any worse. 10/13/2016 Appointment: Rika Bello WPtel: [address] [place], [place] [phone] (30 min) Complex 10/13/2016 Patient Education: Patient Medication Summary Completed 10/13/2016 Appointment: Rika Bello WPtel: [address] [place], [place] [phone] (30 min) Complex 10/11/2016 Appointment: Rika Bello WPtel: [address] [place], [place] [phone] [facility] - Annual Wellness Visit 10/04/2016 Visit [...] as directed. 09/23/2016 Appointment: Rika Bello WPtel: [address] [place], [place] [phone] (15 min) Moderate 09/23/2016 Patient Education: Patient [...] 09/13/2016 Care Plan: Referral Order SNOMED-CT : [id number] Pending 09/13/2016 Appointment: Rika Bello WPtel: [phone] (30 min) Complex 09/09/2016 Appointment: Rika Bello WPtel: [address] [place], [place] [phone] [place] (30 min) Complex 09/08/2016 Visit Plan: [...] CBC 08/09/2016 Appointment: Rika Bello WPtel: [address] [phone] [place] (30 min) Complex 08/09/2016 Patient Education: [...] control. Yeast infection -rx for nystatin powder RASW-ntpxfqtzn-sbjukd pneumonia -afib-patient is oxygen dependent due to [...] control. Yeast infection -rx for nystatin powder IQQY-zyecflbef-jfxonc pneumonia -afib-patient is oxygen dependent due to [...] control. Yeast infection -rx for nystatin powder JFTD-ttaclpvdz-tgzpoh pneumonia -afib-patient is oxygen dependent due to severely compromised pulmonary and cardiac systems-will send orders to [facility] to continue oxygen 07/26/2016 Appointment: Rika Bello WPtel: 1015 [phone] [place] (30 min) Complex 07/26/2016 Patient Education: Patient Medication Summary Completed 07/26/2016 Appointment: Rika Bello WPtel: 1015 [phone] [place] (30 min) Complex 07/22/2016 Appointment: Rika Bello WPtel: 1015 [phone] (30 min) Complex 07/18/2016 Appointment: Rika Bello WPtel: 1015 [phone] (30 min) Complex 07/01/2016 Appointment: Lab Draw 06/24/2016 Patient Education: Patient Medication Summary Completed 06/24/2016 Appointment: Rika Bello WPtel: 1015 [phone] (30 min) Complex 2016 Visit Plan: Diabetes [...] Completed 05/24/2016 Appointment: Rika Bello WPtel: [facility]5 [phone] (30 min) Complex 05/17/2016 Visit Plan: Vaginal [...] control. 04/19/2016 Appointment: Rika Bello WPtel: [facility]2 [phone] (30 min) Complex 04/19/2016 Patient Education: Patient Medication Summary Completed 04/19/2016 Patient Education: Obesity Completed 04/19/2016 Appointment: Rika Bello WPtel: [phone] (30 min) Complex 04/18/2016 Visit Plan: Diabetes [...] to allow for greater blood glucose control. BEY-buepfhcaop-ac changes in medications at this time. Dysuria-UA negative-needs pelvic exam due to pt c/o vaginal discharge 04/11/2016 Appointment: Rika Bello WPtel: 101[address] [phone] [place] (30 min) Complex 04/11/2016 Patient Education: Patient Medication Summary Completed 04/11/2016 Patient Education: Obesity Completed 04/11/2016 Appointment: Rika Bello WPtel: 1015 [phone] [place] (30 min) Complex 04/08/2016 Visit Plan: [...] edema. 03/11/2016 Appointment: Rika Bello WPtel: [phone] (30 min) [facility] 03/11/2016 Patient Education: Patient Medication [...] use 02/26/2016 Appointment: Rika Bello WPtel: [address] [phone] [place] (30 min) Complex 02/26/2016 Patient Education: Patient Medication Summary Completed 02/26/2016 Appointment: Rika Bello WPtel: [address] [phone] [place] (30 min) Complex 02/25/2016 Appointment: Rika Bello WPtel: [address] [place], [place] [phone] (30 min) Complex 02/23/2016 Appointment: Lab Draw [...] to mold 02/02/2016 Appointment: Rika Bello WPtel: [address] [place], [place] [phone] (30 min) Complex 02/02/2016 Patient Education: Patient Medication Summary Completed 02/02/2016 Appointment: Tessie Motta WPtel: [address] [place] [address] (15 min) Moderate 01/21/2016 Appointment: Rika Bello WPtel: [address] [place], [place] [phone] (30 min) Complex 01/14/2016 Visit Plan: Hypertension [...] Patient Medication Summary Completed 12/17/2015 Visit Plan: Pnmecau-eoooisaub-ough head injury on 12/05-did not go to ER-patient sent for STAT CT scan of head-schedule appt with Dr Dyer Adrenal insufficiency-patient suddenly stopped prednisone-instructed patient to restart and taper prednisone as directed Rib tnad-ukeia-cujcqe fall-xray ribs 12/08/2015 Appointment: Rika Bello WPtel: [phone] (15 min) Moderate 12/08/2015 Appointment: Rika Bello WPtel: [phone] (30 min) Complex 12/08/2015 Patient Education: Patient Medication Summary Completed 12/08/2015 Care Plan: COMPLETE CBC AUTOMATED LOINC : 62145-6 Pending 12/08/2015 Visit Plan: Hypertension - well [...] pt was given a script for a mcc prednisone taper - pt has not started [...] Dr. Mejia 10/27/2015 Appointment: Rika Bello WPtel: [address] [place] [phone] (30 min) Complex 10/27/2015 Patient Education: Patient Medication Summary Completed 10/27/2015 Patient Education: Obesity Completed 10/27/2015 Care Plan: Referral Order SNOMED-CT : [id number] Pending 10/27/2015 Referral: Matt Pavon HPtel:[phone] [facility] Referral Initiated 10/21/2015 Visit Plan: Medicare [...] pain. 09/29/2015 Appointment: Rika Bello WPtel: [phone] MCR - Welcome to Medicare visit 09/29/2015 Patient Education: Patient Medication Summary Completed 09/29/2015 Patient Education: Obesity Completed 09/29/2015 Care Plan: Referral Order SNOMED-CT : [id number] Pending 09/29/2015 Care Plan: BMI Above normal [...] Complex 05/05/2015 Appointment: Rika Bello WPtel: [phone] (30 min) Complex 04/27/2015 Visit Plan: Cellulitis [...] Completed 03/03/2015 Appointment: Rika Bello WPtel: 1015 [phone] [place] (30 min) Complex 02/24/2015 Appointment: (30 min) Complex 01/29/2015 Appointment: Tessie Motta [facility]Ptel: [address] [facility] [place] (15 min) Moderate 01/22/2015 Visit Plan: Blister of right lower leg-fluids removed with #27 gauze needle and compression dressing applied-refer to wound care for evaluation and management-patient is at high risk of developing large ulcer due to diabetes, noncompliance and poor hygiene. Rash right leg-start oral abx and bactroban as directed Orviw-sfdnsjqhjcvc-hap markie wraps, elevate leg, and again instructed [...] eating out. 01/01/2015 Appointment: Tessie Motta WPtel: [address] [facility] (15 min) Moderate 01/01/2015 Patient Education: [...] Care Plan: COMPLETE CBC AUTOMATED LOINC : 33316-7 Ordered 11/04/2014 Care Plan: URINALYSIS NONAUTO W/O SCOPE LOINC : 48364-6 Ordered 11/04/2014 Appointment: Follow up 10/07/2014 Visit Plan: Edema - pt has been advised to elevate legs to prevent dependent edema, compression has been recommended to help to naturally decrease peripheral edema. Diuretic use has been discussed and pt has been instructed in appropriate use of such medication as necessary to further attempt to reduce peripheral edema. Bjgrvcejch-ranrdvjg-zh change in treatment- continue compression hose-decrease salt/sodium in diet-call if symptoms worsen or do not resolve Qckhdzqax-yomnyno-qaoacsxy nasonex to twice daily as directed 09/08/2014 [...] Bello WPtel: [address] [facility] Follow up 06/12/2014 Patient Education: Patient Medication Summary Completed 06/12/2014 Patient Education: .Amazing charts Exercise for Sciatica Completed 06/12/2014 Care Plan: COMPLETE CBC AUTOMATED LOINC : 58130-9 Ordered 06/12/2014 Visit Plan: Cellulitis - continue [...] Completed 05/26/2014 Appointment: Tessie Motta WPtel: [address] [facility] [place] Lab Draw 04/21/2014 Patient Education: [...] home. 02/13/2014 Appointment: Tessie Motta WPtel: [address] [facility] Follow up 02/13/2014 Patient Education: Patient [...] daily. 01/27/2014 Appointment: Tessie Motta WPtel: [facility] [facility] Follow up 01/27/2014 Patient Education: Patient Medication Summary Completed 01/27/2014 Appointment: Rika Bello WPtel: [address] [phone] Follow up 01/02/2014 Visit Plan: Open wound of emo-axyzsrgi-kskdaodh with dressing changes as directed-call for increase [...] Completed 12/26/2013 Appointment: Tessie Motta WPtel: [facility] Follow up 12/24/2013 Visit Plan: Open wound of right leg-debrided today in the office-instructed on wound care-follow up as directed. Call with any questions, concerns, or worsening symptoms. Culture of wound today in the office-RX for abx sent to patient's pharmacy and instructed on use. Patient verbalized understanding of plan. 12/12/2013 Appointment: Rika Bello WPtel: [facility]9 [phone] Other 12/12/2013 Patient Education: Patient Medication Summary Completed 12/12/2013 Appointment: Tessie Motta WPtel: [facility]6 [facility] Follow up 11/20/2013 Visit Plan: negative ua 11/18/2013 Appointment: Tessie Motta WPtel: [facility]3 [facility] Lab Draw 11/18/2013 Patient Education: Patient Medication [...] Completed 11/14/2013 Visit Plan: Open wound right lob-tztdqx-bvwz if opens up Edema - pt has been advised to elevate legs to prevent dependent edema, compression has been recommended to help to naturally decrease peripheral edema. Diuretic use has been discussed and pt has been instructed in appropriate use of such medication as necessary to further attempt to reduce peripheral edema. 10/21/2013 Appointment: Rika Bello WPtel: [address] [place], [place] [phone] [place] [address] Follow up 10/21/2013 Patient Education: Patient Medication Summary Completed 10/21/2013 Appointment: Rika Bello WPtel: [address] [place], [place] [phone] [place] [address] Follow up 10/17/2013 Appointment: Tessie Motta WPtel: [address] [place] [address] Follow up 10/10/2013 Visit Plan: Hypertension - [...] for pain. 10/03/2013 Appointment: Rika Bello WPtel: [address] [place], [place] [phone] [place] [address] Follow up 10/03/2013 Patient Education: Patient Medication [...] plan. 09/23/2013 Appointment: Tessie Motta WPtel: [facility] [facility] [facility] Visit 09/23/2013 Patient Education: Patient [...] WEEKS. 09/20/2013 Appointment: Rika Bello WPtel: [facility] Follow up 09/20/2013 Patient Education: Patient Medication Summary Completed 09/20/2013 Patient Education: Hypertension Completed 09/20/2013 Appointment: Tessie Motta WPtel: [facility] [place] Follow up 09/16/2013 Visit Plan: [...] understanding. 09/10/2013 Appointment: Rika Bello WPtel: [facility] Other 09/10/2013 Patient Education: Patient Medication Summary Completed 09/10/2013 Appointment: Rika Bello WPtel: [address] [place] [address] Follow up 09/02/2013 Visit Plan: Diabetes Mellitus [...] edema. 08/19/2013 Appointment: Rika Bello WPtel: [facility]5 [facility] [place] [address] Other 08/19/2013 Patient Education: Patient Medication Summary [...] as scheduled 08/01/2013 Appointment: Rika Bello WPtel: [address] [place], [place] [phone] Follow up 08/01/2013 Patient Education: Patient Medication Summary Completed 08/01/2013 Appointment: Rika Bello WPtel: [address] [place], [place] [phone] [place] Follow up 07/25/2013 Appointment: Tessie Motta WPtel: [address] [place], [place] [phone] [place] Follow up 07/25/2013 Visit Plan: Bister of foot-dressing changes discussed with patient and instructed her to keep her foot clean and dry-STOP WEARING FLIP FLOPS as they are causing friction over blistered area. Keep follow up appointment as scheduled. Call for redness, drainage or other s/s of infection. 07/19/2013 Appointment: Rika Bello WPtel: [address] [place], [place] [phone] [place] [address] Other 07/19/2013 Patient Education: Patient Medication Summary [...] peripheral edema. 07/15/2013 Appointment: Rika Bello WPtel: [address] [place] [address] Other 07/15/2013 Patient Education: Patient Medication Summary Completed 07/15/2013 Patient Education: Hypertension Completed 07/15/2013 Appointment: Rika Bello WPtel: [address] [place] [address] Follow up 07/01/2013 Appointment: Rika Bello WPtel: [address] [place] [address] Lab Draw 06/28/2013 Patient Education: Patient Medication [...] tid. 06/27/2013 Appointment: Tessie Motta WPtel: [facility]7 [address] Other 06/27/2013 Patient Education: Patient Medication Summary Completed 06/27/2013 Appointment: Tessie Motta WPtel: [address] [facility] [place] Other 06/24/2013 Visit Plan: Diabetes [...] AFTERNOON. 06/10/2013 Appointment: Tessie Motta WPtel: [address] [facility] Follow up 06/10/2013 Patient Education: Patient Medication Summary Completed 06/10/2013 Appointment: Tessie Motta WPtel: [address] [facility] [place] Follow up 06/06/2013 Visit Plan: [...] acutely worsen. 05/07/2013 Appointment: Tessie Motta WPtel: [address] [place], [place] [phone] Follow up 05/07/2013 Patient Education: Patient Medication Summary Completed 05/07/2013 Appointment: Tessie Motta WPtel: [address] [place], [place] [phone] Follow up 04/30/2013 Visit Plan: Edema - [...] changes. 04/16/2013 Appointment: Tessie Motta WPtel: [facility]2 [facility] Follow up 04/16/2013 Patient Education: Patient Medication Summary Completed 04/16/2013 Appointment: Tessie Motta WPtel: [facility] Follow up 04/04/2013 Visit Plan: Lumbago-continue physical [...] edema. 03/21/2013 Appointment: Rika Bello WPtel: [facility]5 [phone] Follow up 03/21/2013 Patient Education: Patient Medication Summary Completed 03/21/2013 Appointment: Tessie Motta WPtel: [facility]5 [facility] Follow up 03/20/2013 Appointment: Tessie Motta WPtel: [address] [place], [place] [phone] Follow up 03/05/2013 Visit Plan: Edema-significantly improved- [...] controlled. 02/12/2013 Appointment: Rika Bello WPtel: [phone] [facility] follow up 02/12/2013 Patient Education: [...] Dyspnea - recommended pt to see new counter stitcher when he gets [facility] for further evaluation and work-up. 02/04/2013 Appointment: Tessie Motta WPtel: [facility] Follow up 02/04/2013 Patient Education: Patient [...] improve. 01/17/2013 Appointment: Rika Bello WPtel: [facility] Follow up 01/17/2013 Patient Education: Patient Medication Summary Completed 01/17/2013 Patient Education: Hypertension Completed 01/17/2013 Appointment: Tessie Motta WPtel: [facility] Follow up 01/16/2013 Appointment: Tessie Motta WPtel: [address] [place] [address] [place] Follow up 01/10/2013 Appointment: Rika Bello WPtel: [phone] [place] Lab Draw 01/01/2013 Patient Education: Patient [...] labs 12/31/2012 Appointment: Rika Bello WPtel: [facility] [place] [address] Follow up 12/31/2012 Appointment: Rika Bello WPtel: 1015 [phone] Sick 12/31/2012 Patient Education: Patient Medication Summary [...] labs. 12/20/2012 Appointment: Rika Bello WPtel: 1015 [phone] Sick 12/20/2012 Patient Education: Patient Medication Summary Completed 12/20/2012 Patient Education: Hypertension Completed 12/20/2012 Appointment: Tessie Motta WPtel: [facility]5 [facility] Lab Draw 11/05/2012 Patient Education: Patient Medication Summary Completed 11/05/2012 Visit Plan: Bronchitis - acute case of bronchitis identified. Pt has been given antibiotics, breathing treatments as appropriate, and pt has been instructed to call if symptoms are not improved, or if symptoms acutely worsen. 10/29/2012 Appointment: Tessie Motta WPtel: [address] [place], [place] [phone] Sick 10/29/2012 Patient Education: Patient Medication Summary Completed 10/29/2012 Visit Plan: Joint Injection-left SI joint - Pt was given post - injection instructions. The pt has been advised to use antiinflammatories post injection today, ice to the injected site, call if redness, warmth, or increased pain occurs at the site of injection. 09/21/2012 Appointment: Rika Bello WPtel: [facility]5 [phone] Follow up 09/21/2012 Patient Education: Patient Medication [...] control. 09/06/2012 Appointment: Tessie Motta WPtel: [facility] [facility] Follow up 09/06/2012 Patient Education: Patient [...] readings are starting to become less controlled. Jhwdusgi-mnmmaqqu-kimyjltc probiotic-continue to hold metformin and repeat labs before appt in 2 weeks. Call for abd pain, worsening diarrhea, or other concerns. 08/23/2012 Appointment: Tessie Motta WPtel: [address] [facility] Follow up 08/23/2012 Patient Education: Patient [...] PLAN. 08/13/2012 Appointment: Rika Bello WPtel: [address] [facility] [place] Follow up 08/13/2012 Patient Education: Patient [...] concerns. 08/07/2012 Appointment: Rika Bello WPtel: [facility] [place] Other 08/07/2012 Patient Education: Patient Medication Summary Completed 08/07/2012 Patient Education: Hypertension Completed 08/07/2012 Visit Plan: UA-sent for culture 07/19/2012 Appointment: Rika Bello WPtel: [phone] [place] Lab Draw 07/19/2012 Patient Education: Patient [...] Bello WPtel: [address] [phone] Sick 07/06/2012 Patient Education: Patient Medication Summary [...] today 06/07/2012 Appointment: Tessie Motta WPtel: [facility] [facility] Follow up 06/07/2012 Appointment: Tessie Motta WPtel: [facility] [facility] Follow up 06/07/2012 Patient Education: Patient [...] days. 05/28/2012 Appointment: Rika Bello WPtel: 1015 [phone] Follow up 05/28/2012 Patient Education: Patient Medication [...] peripheral edema. 05/17/2012 Appointment: Rika Bello WPtel: [address] [facility] ER Follow UP 05/17/2012 Patient Education: Patient [...] office 05/02/2012 Appointment: Tessie Motta WPtel: [facility]5 [facility] Follow up 05/02/2012 Patient Education: Patient Medication Summary Completed 05/02/2012 Patient Education: Hypertension Completed 05/02/2012 Appointment: Tessie Motta WPtel: [facility]5 [facility] Follow up 04/25/2012 Visit Plan: Sinusitis - [...] acute concerns. 04/10/2012 Appointment: Rika Bello WPtel: [address] [facility] [place] Follow up 04/10/2012 Patient Education: Patient [...] on Monday02/27/2012 Appointment: Rika Bello WPtel: [facility] [address] Follow up 02/27/2012 Patient Education: Patient [...] thighs. 02/15/2012 Appointment: Rika Bello WPtel: [facility]6 [phone] [place] Follow up 02/15/2012 Patient Education: Patient [...] toes to thighs. RX sent to patient's [facility]. Chest xray at the hospital as [...] urine. 02/01/2012 Appointment: Rika Bello WPtel: 1015 [phone] [place] [address] Other 02/01/2012 Patient Education: Patient Medication Summary [...] buttocks 12/14/2011 Appointment: Tessie Motta WPtel: 1015 [facility] [place] Other 12/14/2011 Patient Education: Patient Medication Summary Completed 12/14/2011 Appointment: Tessie Motta WPtel: 1015 [facility] Follow up 12/08/2011 Visit Plan: N/V/D - [...] less controlled. 11/30/2011 Appointment: Rika Bello WPtel: [address] [place] [address] Other 11/30/2011 Patient Education: Patient Medication Summary [...] pain. 11/17/2011 Appointment: Tessie Motta WPtel: [facility] [facility] Other 11/17/2011 Patient Education: Patient Medication [...] - uncontrolled - will consult her primary oil heat technician for assistance with control her her heart rate. Ulcer of toe - continue with topical antibiotics as previously directed, return to clinic as previously directed, call for acute change in symptoms, worsening redness, warmth, discharge. 11/03/2011 Appointment: Tessie Motta WPtel: [facility] [facility] Other 11/03/2011 Patient Education: Patient Medication [...] warmth, discharge. 10/24/2011 Appointment: KaliaTessie WPtel: 101[address] [facility] [place] Other 10/24/2011 Patient Education: Patient [...] lymphoma. 09/26/2011 Appointment: Rika Bello WPtel: [address] [facility] [place] Other 09/26/2011 Patient Education: Patient Medication [...] Completed 2011 Appointment: Tessie Motta WPtel: [address] [place] [address] Other 09/05/2011 Visit Plan: Sinusitis - Pt [...] medication. 09/01/2011 Appointment: Tessie Motta WPtel: [facility] [address] Other 09/01/2011 Patient Education: Patient Medication Summary Completed 09/01/2011 Visit Plan: Sinusitis - continue with ciprofloxacin and start on corcidin HBP. Anxiety - start the xanax 0.5mg 1/2 pill twice daily. 08/15/2011 Appointment: Tessie Motta WPtel: [facility]5 [address] Other 08/15/2011 Appointment: Tessie Motta WPtel: [address] [place] [address] Other 08/15/2011 Patient Education: Patient Medication Summary [...] Plan for demerol injection today at the [facility]. 08/09/2011 Appointment: Rika Bello WPtel: [address] [place] [address] Other 08/09/2011 Patient Education: Patient Medication Summary [...] not resolve 08/01/2011 Appointment: Rika Bello WPtel: [address] [place] [address] Other 08/01/2011 Patient Education: Patient Medication Summary Completed 08/01/2011 Appointment: Rika Bello WPtel: [address] [place] [address] [place] Other 07/26/2011 Appointment: Tessie Motta WPtel: [address] [place], [place] [id number] Other 07/18/2011 Visit Plan: Diabetes Mellitus - [...] sparingly. 06/20/2011 Appointment: Tessie Motta WPtel: [facility] [place] [phone] Other 06/20/2011 Patient Education: Patient Medication Summary [...] month. 04/18/2011 Appointment: Tessie Motta WPtel: [phone] [facility] Other 04/18/2011 Patient Education: Patient Medication Summary Completed 04/18/2011 Patient Education: High Blood Pressure: Essential Hypertension Completed 2010 Appointment: Tessie Motta WPtel: [phone] [facility] Other 04/12/2011 Appointment: Tessie Motta WPtel: [phone] Other 02/16/2011 Referral: Matt Pavon HPtel:[phone] Referral Initiated Referral: Yareli Raines Referral [...] change in symptoms, worsening redness, warmth, discharge. Cqxfwksp-vpwzdsmjdynn-jirwc labs today-patient has been given orders multiple [...] leg-start oral abx and bactroban as directed Evwpg-omojzwbswora-jky markie wraps, elevate leg, and again instructed [...] drainage or other s/s of infection. . Lca-rxkbcvkmvn-ls changes Anemia-check cbc today Dental infection-on clindamycin [...] change in blood pressure readings at home. GG-ieynyxcwygux-qxsicqiri strict diet and exercise with patient Low zuecqweqb-ywmbybom-ganlfycq to monitor Abd orjv-jtvjvwbg-ck changes FOR CHOLESTEROL - THE NEW DOSE [...] readings are starting to become less controlled. Gxgeizvi-ephuewgh-webvequl probiotic-continue to hold metformin and repeat labs [...] HTN-elevated today-monitor at home -follow up with oil heat technician . Open wound of pvq-djovnivr-wnfheotb with dressing changes as directed-call for increase [...] symptom management sparingly. . Open wound right zyj-gxmosg-cusm if opens up Edema - pt has been advised to elevate legs to prevent dependent edema, compression has been recommended to help to naturally decrease peripheral edema. Diuretic use has been discussed and pt has been instructed in appropriate use of such medication as necessary to further attempt to reduce peripheral edema. . Ppzczkw-ypjirtqmc-qfiu head injury on 12/05-did not go to ER-patient sent for STAT CT scan of head-schedule appt with Dr Dyer Adrenal insufficiency-patient suddenly stopped prednisone-instructed patient to restart and taper prednisone as directed Rib wkfl-ktshd-pqphyi fall-xray ribs START CHECKING BLOOD SUGARS!!!! BRING [...] to allow for greater blood glucose control. QWT-bbdqwhagpm-ks changes in medications at this time. Dysuria-UA [...] - uncontrolled - will consult her primary oil heat technician for assistance with control her her heart [...] with results.Patient and verbalized understanding of plan. UKK-aywstitnlby-hfezd labs-monitor blood pressure and heart rate closely- [...] a prescription for cipro and flagyl to [facility]. Start it today. . Sinusitis - [...] for diflucan-call if symptoms do not resolve [place] over the counter for the knee. [...] to further attempt to reduce peripheral edema. 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 for further evaluation and work-up. refer to [...] a prescription for lasix and potassium to [facility]. Take 2 TABLETS of LASIX and [...] toes to thighs. RX sent to patient's phaacy. Chest xray at the hospital as well. [...] control. Yeast infection -rx for nystatin powder TBBE-wfxaazddb-tinfxy rleaynzuv-xxfq-iaxgsex is oxygen dependent due to severely compromised [...] control. Yeast infection -rx for nystatin powder DWYC-aoczzpsxq-phnqzq kebjmlcwh-ekgb-abiymol is oxygen dependent due to severely compromised [...] control. Yeast infection -rx for nystatin powder WGUR-nepzanvol-fzkyqv qskkueexv-hmrg-hylglva is oxygen dependent due to severely compromised [...] and return Monday for removal of IPRO Pqawpxs-apuvwstlde-fg changes in medications-recommend counseling-patient refuses Weakness-patient is [...] your appt with her -she is a senior capital markets specialist . Diabetes Mellitus - ucontrolled- I [...] to become less controlled. Low potassium-check labs BSM-itbowonwwg-kb changes Afib-check digoxin level with labs Abdominal pain-refill levsin for prn use -call if pain uncontrolled DR Yareli Raines-you need to reschedule your appt with her -she is a senior capital markets specialist . Diabetes Mellitus - ucontrolled- I [...] to become less controlled. Low potassium-check labs FAM-ymxkxokouf-hx changes Afib-check digoxin level with labs Abdominal [...] PAIN MANAGEMENT FOR INJECTIONS STOP BY [employer] FOR NEW CPAP SUPPLIES . Hypertension - [...] every night DM-check Hgb A1C Hypothyroidism-check level Qavsmjk-xssggenugq-lwe well controlled-increase cymbalta-recommend counseling . Diabetes Mellitus [...] she needs to...RESCHEDULE APPT WITH DR RAINES GJW-ncorpheeqb-si change in medications CPAP NEBULIZER CHECK UA [...]
--- OUTSIDE RECORDS SUMMARY | 2018-06-04 16:14 | XMS REPORT | CCD ---
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 Unknown Has never used illegal drugs 02/11/2011 Allergies, Adverse Reactions, Alerts Substance Reaction Codes Entered Date Inactivated Date Status CODEINE RxNorm: 2670 02/11/2011 No Inactive Date Active * NO KNOWN FOOD ALLERGIES Unknown 02/01/2012 No Inactive Date Active cefdinir RxNorm: 81651 08/07/2012 No Inactive Date Active PENICILLINS Unknown [...] Start Date Stop Date Status Fill Instructions promethazine 25 mg tablet RxNorm: 417331 Tablet(s) 1 Tablet(s) PO Q6 PRN TAKE NEEDED ONLY!!! 04/27/2018 No Stop Date Active digoxin 125 mcg tablet RxNorm: 378536 TAKE 1 TABLET BY MOUTH ONCE DAILY 04/23/2018 No Stop Date Active Lasix 40 mg tablet RxNorm: 575115 TAKE 1 TABLET BY MOUTH TWICE DAILY 04/19/2018 No Stop Date Active Vitamin D2 50,000 unit capsule RxNorm: 7858254 1 Capsule(s) PO QW 04/17/2018 06/15/2018 Active Tessalon Perles 100 mg capsule RxNorm: 344252 Capsule(s) Capsule(s) 2 Capsule(s) PO TID as needed 04/17/2018 No Stop Date Active Xanax 0.5 mg tablet RxNorm: 483129 1 Tablet(s) BID as needed 04/09/2018 05/08/2018 Active Percocet 10 mg-325 mg tablet RxNorm: 9200754 1-2 Tablet(s) PO Q6 PRN 04/05/2018 04/19/2018 Inactive colestipol 1 gram tablet RxNorm: 9440156 TAKE ONE TABLET BY MOUTH TWICE DAILY 03/30/2018 No Stop Date Active nystatin 100,000 unit/mL oral suspension RxNorm: 597770 Unit(s) 5 Milliliter(s) PO QID swish and swallow 03/21/20182017 Inactive Tessalon Perles 100 mg capsule RxNorm: 308995 Capsule(s) Capsule(s) 2 Capsule(s) PO TID as needed 03/21/2018 04/16/2018 Inactive Xanax 0.5 mg tablet RxNorm: 261486 Tablet(s) BID as needed 04/09/2018 Inactive Slow Fe 47.5 mg iron tablet,extended release RxNorm: 1 Tablet(s) PO every other day 03/12/2018 04/10/2018 Inactive Percocet 10 mg-325 mg tablet RxNorm: 3905661 1-2 Tablet(s) PO Q6 PRN 03/12/2018 03/26/2018 Inactive Slow Fe 47.5 mg iron tablet,extended release RxNorm: 1 Tablet(s) PO 3 x week 02/28/2018 03/11/2018 Inactive promethazine 25 mg tablet RxNorm: 559918 Tablet(s) 1 Tablet(s) PO Q6 PRN TAKE NEEDED ONLY!!! 02/21/2018 04/26/2018 Inactive gabapentin 600 mg tablet RxNorm: 876646 Tablet(s) TAKE ONE & ONE-HALF TABLETS BY MOUTH THREE TIMES DAILY 02/20/20182018 Active Cymbalta 60 mg capsule,delayed release RxNorm: 153816 1 Capsule(s) PO daily take with 30mg tablet 02/20/2018 08/18/2018 Active Cymbalta 30 mg capsule,delayed release RxNorm: 101312 Capsule(s) TAKE ONE CAPSULE BY MOUTH ONCE DAILY - TAKE WITH THE 60 MG DOSE FOR A TOTAL OF 90 MG 02/20/2018 08/18/2018 Active Vitamin D2 50,000 unit capsule RxNorm: 8820365 1 Capsule(s) PO QW 02/20/2018 02/19/2018 Inactive Vitamin D2 50,000 unit capsule RxNorm: 8417090 1 Capsule(s) PO QW 02/20/2018 04/16/2018 Inactive mupirocin 2 % topical ointment RxNorm: 506433 APPLY TO SORE IN BELLY BUTTON TWICE DAILY 02/15/2018 No Stop Date Active Percocet 10 mg-325 mg tablet RxNorm: 4296398 1-2 Tablet(s) PO Q6 PRN 02/14/2018 02/28/2018 Inactive Jerry Marley U-300 Insulin 300 unit/mL (1.5 mL) subcutaneous pen RxNorm: 0123630 40 Unit(s) SQ BID per dr raines 02/07/2018 03/08/2018 Inactive nystatin 100,000 unit/mL oral suspension RxNorm: 176352 5 Milliliter(s) PO QID swish and swallow 02/02/2018 02/11/2018 Inactive mupirocin 2 % topical ointment RxNorm: 998691 1 Application TOP BID 01/30/2018 02/08/2018 Inactive Tessalon Perles 100 mg capsule RxNorm: 469207 Capsule(s) 2 Capsule(s) PO TID as needed 01/23/2018 03/20/2018 Inactive Xanax 0.5 mg tablet RxNorm: 805041 Tablet(s) TAKE ONE TABLET BY MOUTH THREE TIMES DAILY NEEDED 01/17/20182017 Inactive ropinirole 1 mg tablet RxNorm: 772790 1 Tablet(s) PO BID 201705/10/2018 Active digoxin 125 mcg tablet RxNorm: 741161 1 Tablet(s) PO daily 04/22/2018 Inactive Percocet 10 mg-325 mg tablet RxNorm: 2372451 1-2 Tablet(s) PO Q6 PRN 01/04/2018 01/18/2018 Inactive Percocet 10 mg-325 mg tablet RxNorm: 0647400 1-2 Tablet(s) PO Q6 PRN 01/02/2018 01/03/2018 Inactive promethazine 25 mg tablet RxNorm: 661105 Tablet(s) 1 Tablet(s) PO Q6 PRN TAKE NEEDED ONLY!!! 01/02/2018 02/20/2018 Inactive pantoprazole 40 mg tablet,delayed release RxNorm: 859843 TAKE 1 TABLET BY MOUTH ONCE DAILY 12/25/2017 No Stop Date Active mupirocin 2 % topical ointment RxNorm: 373501 1 Application TOP BID 12/22/2017 12/31/2017 Inactive fluconazole 150 mg tablet RxNorm: 039447 1 Tablet(s) PO every other day x 3 doses 12/14/2017 12/23/2017 Inactive Percocet 10 mg-325 mg tablet RxNorm: 1004517 1-2 Tablet(s) PO Q6 PRN 12/13/2017 12/27/2017 Inactive hyoscyamine 0.125 mg sublingual tablet RxNorm: 0516531 Tablet(s) 1 Tablet(s) SL TID as needed 12/13/2017 04/11/2018 Inactive nystatin 100,000 unit/gram topical powder RxNorm: 659396 APPLY POWDER TOPICALLY 4 TIMES DAILY 12/11/2017 No Stop Date Active Xanax 0.5 mg tablet RxNorm: 806168 Tablet(s) TAKE ONE TABLET BY MOUTH THREE TIMES DAILY NEEDED 12/06/20172017 Inactive nitrofurantoin 50 mg capsule RxNorm: 075519 1 Capsule(s) PO BID 12/01/2017 11/30/2017 Inactive take probiotic BID x 7 days nitrofurantoin 50 mg capsule RxNorm: 095545 1 Capsule(s) PO BID 12/01/2017 12/07/2017 Inactive take probiotic BID x 7 days mupirocin 2 % topical ointment RxNorm: 093578 1 Application TOP BID 11/27/2017 12/06/2017 Inactive Tessalon Perles 100 mg capsule RxNorm: 958279 Capsule(s) 2 Capsule(s) PO TID as needed 11/21/2017 01/22/2018 Inactive nystatin 100,000 unit/mL oral suspension RxNorm: 631854 5 Milliliter(s) PO QID swish and swallow 11/17/2017 11/26/2017 Inactive nystatin 100,000 unit/mL oral suspension RxNorm: 527238 5 Milliliter(s) PO QID swish and swallow 11/17/2017 11/16/2017 Inactive Toprol XL 100 mg tablet,extended release RxNorm: 855515 TAKE ONE TABLET BY MOUTH TWICE DAILY 11/15/2017 No Stop Date Active ropinirole 1 mg tablet RxNorm: 344883 Tablet(s) BID 11/14/2017 01/10/2018 Inactive Diflucan 150 mg tablet RxNorm: 928415 Tablet(s) every other day 1 Tablet(s) PO every other day 11/14/2017 11/16/2017 Inactive Percocet 10 mg-325 mg tablet RxNorm: 7706548 1-2 Tablet(s) PO Q6 PRN 11/09/2017 11/23/2017 Inactive Flonase Allergy Relief 50 mcg/actuation nasal spray, suspension RxNorm: 5301950 2 [place] NASAL daily 11/06/20172017 Inactive cyclobenzaprine 10 mg tablet RxNorm: 919330 Tablet(s) TABLET(S) 1 TABLET(S) PO NEEDED TAKE 1 TABLET BY MOUTH EVERY 8 HOURS NEEDED 2017 No Stop Date Active Cymbalta 30 mg capsule,delayed release RxNorm: 681541 TAKE ONE CAPSULE BY MOUTH ONCE DAILY - TAKE WITH THE 60 MG DOSE FOR A TOTAL OF 90 MG 02/19/2018 Inactive Lantus Solostar U-100 Insulin 100 unit/mL (3 mL) subcutaneous pen RxNorm: 662481 Unit(s) SQ 35 units QAM and 55 units QHS Unit(s) SQ 10/27/2017 02/07/2018 Inactive Wants insulin pens Percocet 10 mg-325 mg tablet RxNorm: 7019964 1-2 Tablet(s) PO Q6 PRN 10/27/2017 11/08/2017 Inactive promethazine 25 mg tablet RxNorm: 525981 Tablet(s) 1 Tablet(s) PO Q6 PRN TAKE NEEDED ONLY!!! 10/27/2017 01/01/2018 Inactive Xanax 0.5 mg tablet RxNorm: 457748 Tablet(s) TAKE ONE TABLET BY MOUTH THREE TIMES DAILY 10/20/2017 04/08/2018 Inactive Tessalon Perles 100 mg capsule RxNorm: 864757 Capsule(s) 2 Capsule(s) PO TID as needed 10/19/2017 11/20/2017 Inactive Diflucan 150 mg tablet RxNorm: 728485 1 Tablet(s) PO every other day 10/15/2017 11/13/2017 Inactive Percocet 10 mg-325 mg tablet RxNorm: 8921097 1-2 Tablet(s) PO Q6 PRN 10/06/2017 10/20/2017 Inactive pantoprazole 40 mg tablet,delayed release RxNorm: 752641 1 Tablet(s) PO BID 10/03/2017 03/31/2018 Inactive Cymbalta 60 mg capsule,delayed release RxNorm: 644303 TAKE ONE CAPSULE BY MOUTH ONCE DAILY 09/21/2017 02/19/2018 Inactive Diflucan 150 mg tablet RxNorm: 160013 1 Tablet(s) PO every other day 09/15/2017 09/19/2017 Inactive hyoscyamine 0.125 mg sublingual tablet RxNorm: 8694566 1 Tablet(s) SL TID as needed 09/08/2017 12/12/2017 Inactive Lantus Solostar U-100 Insulin 100 unit/mL (3 mL) subcutaneous pen RxNorm: 487574 Unit(s) SQ 35 units QAM and 55 units QHS Unit(s) SQ 09/06/2017 09/20/2017 Inactive Wants insulin pens Lasix 40 mg tablet RxNorm: 789655 TAKE ONE TABLET BY MOUTH TWICE DAILY 08/25/2017 04/18/2018 Inactive ropinirole 1 mg tablet RxNorm: 944992 TAKE ONE TABLET BY MOUTH AT BEDTIME 08/25/2017 11/13/2017 Inactive Lantus U-100 Insulin 100 unit/mL subcutaneous solution RxNorm: 775794 35 units QAM and 55 units QHS Unit(s) SQ 08/21/2017 09/05/2017 Inactive Tessalon Perles 100 mg capsule RxNorm: 843944 Capsule(s) 2 Capsule(s) PO TID as needed 08/18/2017 10/18/2017 Inactive Percocet 10 mg-325 mg tablet RxNorm: 1572801 1-2 Tablet(s) PO Q6 PRN 08/16/2017 08/30/2017 Inactive pantoprazole 40 mg tablet,delayed release RxNorm: 410372 TAKE ONE TABLET BY MOUTH TWICE DAILY 08/14/2017 08/13/2017 Inactive pantoprazole 40 mg tablet,delayed release RxNorm: 529485 1 Tablet(s) PO daily 08/14/2017 10/02/2017 Inactive promethazine 25 mg tablet RxNorm: 540745 Tablet(s) 1 Tablet(s) PO Q6 PRN TAKE NEEDED ONLY!!! 08/11/2017 10/26/2017 Inactive omeprazole 20 mg capsule,delayed release RxNorm: 421450 1 Capsule(s) PO daily TAKE 1 CAPSULE BY MOUTH ONCE DAILY 08/07/2017 10/26/2017 Inactive nystatin 100,000 unit/mL oral suspension RxNorm: 095215 5 Milliliter(s) PO QID swish and swallow 08/07/2017 08/16/2017 Inactive mupirocin 2 % topical ointment RxNorm: 014959 APPLY TO SORE IN BELLY BUTTON TWICE DAILY 08/07/2017 02/14/2018 Inactive omeprazole 20 mg capsule,delayed release RxNorm: 754716 1 Capsule(s) PO BID TAKE 1 CAPSULE BY MOUTH TWICE DAILY 08/03/2017 08/06/2017 Inactive Diflucan 150 mg tablet RxNorm: 775160 1 Tablet(s) PO daily 08/05/2017 Inactive hyoscyamine 0.125 mg sublingual tablet RxNorm: 9227681 1 Tablet(s) SL TID as needed 08/03/2017 09/01/2017 Inactive gentamicin 0.3 % eye drops RxNorm: 486840 2 Drop(s) ophthalmic (eye) TID 08/03/2017 08/09/2017 Inactive Levaquin 500 mg tablet RxNorm: 371468 1 Tablet(s) PO every other day x3 doses 07/27/2017 08/02/2017 Inactive gentamicin 0.3 % eye drops RxNorm: 358042 2 Drop(s) ophthalmic (eye) TID 07/27/2017 08/02/2017 Inactive dicyclomine 10 mg capsule RxNorm: 947149 1 Capsule(s) PO TID 08/02/2017 Inactive Levaquin 500 mg tablet RxNorm: 927747 1 Tablet(s) PO daily 12/201707/26/2017 Inactive Lantus U-100 Insulin 100 unit/mL subcutaneous solution RxNorm: 105099 INJECT 35 UNITS SUBCUTANEOUSLY IN THE MORNING AND 55 UNITS AT BEDTIME 07/24/2017 09/05/2017 Inactive Tessalon Perles 100 mg capsule RxNorm: 081586 2 Capsule(s) PO TID as needed 07/24/2017 08/17/2017 Inactive Percocet 10 mg-325 mg tablet RxNorm: 6753210 1-2 Tablet(s) PO Q6 PRN 07/21/2017 08/04/2017 Inactive promethazine 25 mg tablet RxNorm: 949905 1 Tablet(s) PO Q6 PRN 1 Tablet(s) PO Q6 PRN 07/19/2017 07/26/2017 Inactive Cartia XT 240 mg capsule,extended release RxNorm: 498732 1 Capsule(s) PO daily 06/27/2017 06/21/2018 Active potassium chloride ER 20 mEq tablet,extended release RxNorm: 890173 Tablet(s) TAKE ONE TABLET BY MOUTH ONCE DAILY 06/21/2017 No Stop Date Active Lantus U-100 Insulin 100 unit/mL subcutaneous solution RxNorm: 459043 35 units QAM and 55 units QHS Unit(s) SQ 06/21/2017 07/20/2017 Inactive Please provide 30 day supply Percocet 10 mg-325 mg tablet RxNorm: 8327306 1-2 Tablet(s) PO Q6 PRN 06/21/2017 07/05/2017 Inactive Cartia XT 180 mg capsule,extended release RxNorm: 739919 Capsule(s) BID 06/21/2017 06/26/2017 Inactive Xanax 0.5 mg tablet RxNorm: 727230 Tablet(s) TAKE ONE TABLET BY MOUTH THREE TIMES DAILY 06/21/2017 08/19/2017 Inactive digoxin 125 mcg tablet RxNorm: 810575 1 Tablet(s) PO daily 10/18/2017 Inactive gabapentin 600 mg tablet RxNorm: 085587 Tablet(s) TAKE ONE & ONE-HALF TABLETS BY MOUTH THREE TIMES DAILY 06/21/20172017 Inactive dicyclomine 10 mg capsule RxNorm: 131643 1 Capsule(s) PO TID 07/26/2017 Inactive Lantus U-100 Insulin 100 unit/mL subcutaneous solution RxNorm: 024855 35 units QAM and 55 units QHS Unit(s) SQ 06/13/2017 06/20/2017 Inactive Please provide 30 day supply potassium chloride ER 20 mEq tablet,extended release RxNorm: 821117 TAKE ONE TABLET BY MOUTH ONCE DAILY 06/02/2017 Inactive cyclobenzaprine 10 mg tablet RxNorm: 475244 Tablet(s) TABLET(S) 1 TABLET(S) PO NEEDED TAKE 1 TABLET BY MOUTH EVERY 8 HOURS NEEDED 201711/02/2017 Inactive Tessalon Perles 100 mg capsule RxNorm: 061703 2 Capsule(s) PO TID as needed 06/01/2017 07/23/2017 Inactive promethazine 25 mg tablet RxNorm: 005131 1 Tablet(s) PO Q6 PRN 1 Tablet(s) PO Q6 PRN 05/25/2017 06/01/2017 Inactive gabapentin 600 mg tablet RxNorm: 310113 TAKE ONE & ONE-HALF TABLETS BY MOUTH THREE TIMES DAILY 05/23/2017 06/20/2017 Inactive promethazine 25 mg tablet RxNorm: 436726 1 Tablet(s) PO Q6 PRN 1 Tablet(s) PO Q6 PRN 05/19/2017 05/24/2017 Inactive Flagyl 500 mg tablet RxNorm: 708913 1 Tablet(s) PO TID 201605/26/2017 Inactive Levaquin 500 mg tablet RxNorm: 282013 1 Tablet(s) PO daily 05/16/2017 Inactive Tessalon Perles 100 mg capsule RxNorm: 338228 2 Capsule(s) PO TID as needed 05/17/2017 05/31/2017 Inactive Flagyl 500 mg tablet RxNorm: 196211 1 Tablet(s) PO TID 201605/16/2017 Inactive hyoscyamine 0.125 mg sublingual tablet RxNorm: 5167538 1 Tablet(s) SL TID as needed 05/17/2017 06/12/2017 Inactive Levaquin 500 mg tablet RxNorm: 508021 1 Tablet(s) PO daily 05/23/2017 Inactive Cymbalta 60 mg capsule,delayed release RxNorm: 273354 1 Capsule(s) PO daily take with 30mg tablet 05/16/2017 08/13/2017 Inactive Bentyl 10 mg capsule RxNorm: 287032 1 Capsule(s) PO TID as needed 05/12/2017 06/10/2017 Inactive Levsin 0.125 mg tablet RxNorm: 4771751 1 Tablet(s) PO Q4 PRN 1-2 Tablet(s) PO Q4 PRN 05/11/2017 05/11/2017 Inactive nystatin 100,000 unit/gram topical powder RxNorm: 600104 Gram(s) APPLY POWDER TOPICALLY 4 TIMES DAILY 05/11/20172017 Inactive nystatin 100,000 unit/mL oral suspension RxNorm: 499883 4 Milliliter(s) PO QID swish and swallow 05/10/2017 05/19/2017 Inactive and Monistat over the counter colestipol 1 gram tablet RxNorm: 2141057 TAKE ONE TABLET BY MOUTH TWICE DAILY 05/08/2017 03/29/2018 Inactive Lantus 100 unit/mL subcutaneous solution RxNorm: 171398 30 units QAM and 50 units QHS Unit(s) SQ 04/28/2017 05/27/2017 Inactive Please provide 30 day supply Lantus Solostar 100 unit/mL (3 mL) subcutaneous insulin pen RxNorm: 282452 Unit( s) SQ BID 04/28/2017 06/13/2017 Inactive 30 units q am and 50units at night Lantus 100 unit/mL subcutaneous solution RxNorm: 404193 30 units QAM and 50 units QHS Unit(s) SQ 04/28/2017 04/27/2017 Inactive Please provide 30 day supply Levsin 0.125 mg tablet RxNorm: 9132803 1 Tablet(s) PO Q4 PRN 1-2 Tablet(s) PO Q4 PRN 04/25/2017 05/10/2017 Inactive promethazine 25 mg tablet RxNorm: 532866 1 Tablet(s) PO Q6 PRN 1 Tablet(s) PO Q6 PRN 04/25/2017 05/02/2017 Inactive Toprol XL 100 mg tablet,extended release RxNorm: 927421 TAKE ONE TABLET BY MOUTH TWICE DAILY 04/24/2017 11/14/2017 Inactive Flagyl 500 mg tablet RxNorm: 999479 1 Tablet(s) PO TID 201604/30/2017 Inactive Levaquin 500 mg tablet RxNorm: 649661 1 Tablet(s) PO daily 05/201604/27/2017 Inactive Voltaren 1 % topical gel RxNorm: 478054 4 Gram(s) TOP QID 04/1810/14/2017 Inactive mupirocin 2 % topical ointment RxNorm: 085101 1 Application TOP BID 04/18/2017 04/27/2017 Inactive apply to sore in belly button Lantus Solostar 100 unit/mL (3 mL) subcutaneous insulin pen RxNorm: 840519 Unit( s) SQ BID 04/18/2017 04/27/2017 Inactive 20 units q am and 50units at night levothyroxine 88 mcg tablet RxNorm: 380686 1 Tablet(s) PO daily TAKE ONE TABLET BY MOUTH ONCE DAILY 04/06/2017 04/17/2017 Inactive Xanax 0.5 mg tablet RxNorm: 429822 Tablet(s) TAKE ONE TABLET BY MOUTH THREE TIMES DAILY 04/04/2017 06/02/2017 Inactive Percocet 10 mg-325 mg tablet RxNorm: 1990243 1-2 Tablet(s) PO Q6 PRN 04/04/2017 04/18/2017 Inactive cyclobenzaprine 10 mg tablet RxNorm: 413515 TAKE ONE TABLET BY MOUTH EVERY 8 HOURS NEEDED 04/03/2017 06/01/2017 Inactive potassium chloride ER 20 mEq tablet,extended release RxNorm: 018131 1 Tablet(s) PO daily 03/28/2017 06/01/2017 Inactive nystatin 100,000 unit/gram topical cream RxNorm: 057598 1 Application TOP BID 03/27/2017 04/09/2017 Inactive Levsin 0.125 mg tablet RxNorm: 3787682 1 Tablet(s) PO Q4 PRN 1-2 Tablet(s) PO Q4 PRN 03/27/2017 04/24/2017 Inactive promethazine 25 mg tablet RxNorm: 622545 1 Tablet(s) PO Q6 PRN 03/23/2017 03/29/2017 Inactive nystatin 100,000 unit/gram topical powder RxNorm: 735544 APPLY POWDER TOPICALLY 4 TIMES DAILY 03/17/2017 05/10/2017 Inactive Percocet 10 mg-325 mg tablet RxNorm: 7237053 1-2 Tablet(s) PO Q6 PRN 03/09/2017 03/23/2017 Inactive Levsin 0.125 mg tablet RxNorm: 8266056 1-2 Tablet(s) PO Q4 PRN 03/06/2017 03/26/2017 Inactive promethazine 25 mg tablet RxNorm: 788586 1 Tablet(s) PO Q6 PRN 03/06/2017 03/13/2017 Inactive potassium chloride ER 20 mEq tablet,extended release RxNorm: 922205 1 Tablet(s) PO BID 02/23/2017 03/09/2017 Inactive Levsin/SL 0.125 mg sublingual tablet RxNorm: 1517484 1-2 Tablet(s) SL Q4 PRN 02/17/2017 03/26/2017 Inactive potassium chloride ER 20 mEq tablet,extended release RxNorm: 574471 1 Tablet(s) PO BID 02/17/2017 02/21/2017 Inactive magnesium oxide 400 mg tablet RxNorm: 522122 1 Tablet(s) PO daily 02/17/2017 02/21/2017 Inactive then twice weekly thereafter Levsin 0.125 mg tablet RxNorm: 4210135 1-2 Tablet(s) PO Q4 PRN 02/17/2017 02/16/2017 Inactive promethazine 25 mg tablet RxNorm: 554955 1 Tablet(s) PO Q6 PRN 02/10/2017 03/05/2017 Inactive Percocet 10 mg-325 mg tablet RxNorm: 4943469 1-2 Tablet(s) PO Q6 PRN 02/09/2017 02/23/2017 Inactive Cymbalta 60 mg capsule,delayed release RxNorm: 109697 1 Capsule(s) PO daily take with 30mg tablet 02/06/2017 05/06/2017 Inactive Cymbalta 30 mg capsule,delayed release RxNorm: 633978 1 Capsule(s) PO daily take with 60mg tablet 02/06/2017 02/19/2018 Inactive take with 60mg=90mg Vitamin D2 50,000 unit capsule RxNorm: 814082 1 Capsule(s) PO daily 01/17/2017 01/16/2017 Inactive daily x 6 mths Tresiba FlexTouch U-100 100 unit/mL (3 mL) subcutaneous insulin pen RxNorm: 5759971 40 Unit(s) SQ daily 01/17/20172016 Inactive Tresiba FlexTouch U-100 100 unit/mL (3 mL) subcutaneous insulin pen RxNorm: 1599909 40 Unit(s) SQ daily 01/17/20172016 Inactive Vitamin D2 50,000 unit capsule RxNorm: 229089 1 Capsule(s) PO daily 01/17/2017 10/26/2017 Inactive daily x 6 mths Cymbalta 30 mg capsule,delayed release RxNorm: 868425 1 Capsule(s) PO daily 01/16/2017 02/05/2017 Inactive take with 60mg=90mg Percocet 10 mg-325 mg tablet RxNorm: 5433886 1-2 Tablet(s) PO Q6 PRN 01/13/2017 01/27/2017 Inactive gabapentin 600 mg tablet RxNorm: 629012 TAKE ONE & ONE-HALF TABLETS BY MOUTH THREE TIMES DAILY 01/10/2017 05/09/2017 Inactive Percocet 10 mg-325 mg tablet RxNorm: 8805035 1-2 Tablet(s) PO Q6 PRN 12/21/2016 01/04/2017 Inactive Xanax 0.5 mg tablet RxNorm: 453680 Tablet(s) TAKE ONE TABLET BY MOUTH THREE TIMES DAILY 12/20/2016 02/15/2017 Inactive promethazine 25 mg tablet RxNorm: 775827 1 Tablet(s) PO Q6 PRN 12/16/2016 12/18/2016 Inactive prednisone 20 mg tablet RxNorm: 306639 2 Tablet(s) PO daily 12/14/2016 Inactive prednisone 20 mg tablet RxNorm: 350159 2 Tablet(s) PO daily 03/26/2017 Inactive Eliquis 5 mg tablet RxNorm: 4987270 1 Tablet(s) PO BID 201601/11/2017 Inactive doxycycline monohydrate 100 mg tablet RxNorm: 362708 1 Tablet(s) PO BID 12/13/2016 03/26/2017 Inactive give doxycyline hyclate cyclobenzaprine 10 mg tablet RxNorm: 808138 TAKE ONE TABLET BY MOUTH EVERY 8 HOURS NEEDED 12/09/2016 12/28/2016 Inactive Cymbalta 60 mg capsule,delayed release RxNorm: 659382 TAKE ONE CAPSULE BY MOUTH ONCE DAILY 11/30/2016 02/05/2017 Inactive promethazine 25 mg tablet RxNorm: 810672 2 Tablet(s) PO Q6 PRN 11/29/2016 12/16/2016 Inactive Percocet 10 mg-325 mg tablet RxNorm: 3430415 1-2 Tablet(s) PO Q6 PRN 11/24/2016 12/08/2016 Inactive mupirocin 2 % topical ointment RxNorm: 006961 1 Application TOP BID 11/11/2016 11/24/2016 Inactive Xanax 0.5 mg tablet RxNorm: 654478 Tablet(s) TAKE ONE TABLET BY MOUTH THREE TIMES DAILY 11/11/2016 12/19/2016 Inactive Belviq 10 mg tablet RxNorm: 1481142 1 Tablet(s) PO BID 201612/10/2016 Inactive Toprol XL 100 mg tablet,extended release RxNorm: 422395 TAKE ONE TABLET BY MOUTH TWICE DAILY 11/04/2016 04/02/2017 Inactive albuterol sulfate concentrate 2.5 mg/0.5 mL solution for nebulization RxNorm: 127091 USE ONE VIAL IN NEBULIZER EVERY 4 TO 6 HOURS NEEDED 11/03/2016 11/12/2016 Inactive Percocet 10 mg-325 mg tablet RxNorm: 9846094 1-2 Tablet(s) PO Q6 PRN 10/31/2016 11/23/2016 Inactive promethazine 25 mg tablet RxNorm: 869699 2 Tablet(s) PO Q6 PRN 10/28/2016 11/28/2016 Inactive nystatin 100,000 unit/mL oral suspension RxNorm: 892776 5 Milliliter(s) PO QID 10/28/2016 11/06/2016 Inactive Levemir FlexTouch 100 unit/mL (3 mL) subcutaneous insulin pen RxNorm: 265749 45 Unit(s) SQ BID 10/28/2016 01/16/2017 Inactive 45 q am and 40 q anita cyclobenzaprine 10 mg tablet RxNorm: 374349 TAKE ONE TABLET BY MOUTH EVERY 8 HOURS NEEDED 10/21/2016 11/09/2016 Inactive Lasix 40 mg tablet RxNorm: 836230 TAKE ONE TABLET BY MOUTH TWICE DAILY 10/18/2016 04/15/2017 Inactive Percocet 10 mg-325 mg tablet RxNorm: 6442118 1-2 Tablet(s) PO Q6 PRN 10/18/2016 10/30/2016 Inactive acyclovir 400 mg tablet RxNorm: 521114 2 Tablet(s) PO QID 10/1310/22/2016 Inactive Lasix 40 mg tablet RxNorm: 028726 TAKE ONE TABLET BY MOUTH TWICE DAILY 10/10/2016 10/17/2016 Inactive ropinirole 1 mg tablet RxNorm: 228039 TAKE ONE TABLET BY MOUTH AT BEDTIME 10/10/2016 04/07/2017 Inactive nystatin 100,000 unit/mL oral suspension RxNorm: 198449 5 Milliliter(s) PO QID x 10 days 09/30/2016 10/09/2016 Inactive nystatin 100,000 unit/mL oral suspension RxNorm: 567434 5 Milliliter(s) PO QID x 10 days 09/30/2016 10/09/2016 Inactive Swish et swallow Flonase Allergy Relief 50 mcg/actuation nasal spray, suspension RxNorm: 0952579 2 [place] NASAL daily 09/23/20162016 Inactive Percocet 10 mg-325 mg tablet RxNorm: 1078072 1-2 Tablet(s) PO Q6 PRN 09/23/2016 10/17/2016 Inactive doxycycline monohydrate 100 mg tablet RxNorm: 257078 1 Tablet(s) PO BID 09/23/2016 10/02/2016 Inactive give doxycyline hyclate Levemir FlexTouch 100 unit/mL (3 mL) subcutaneous insulin pen RxNorm: 092236 40 Unit(s) SQ BID 09/15/2016 10/27/2016 Inactive nystatin 100,000 unit/gram topical powder RxNorm: 952911 1 Application TOP QID 09/13/2016 09/22/2016 Inactive Voltaren 1 % topical gel RxNorm: 709731 4 Gram(s) TOP QID 09/1303/11/2017 Inactive Anusol-HC 25 mg rectal suppository RxNorm: 2068998 1 Suppository RTL HS 09/13/2016 09/26/2016 Inactive hydrocodone 10 mg-acetaminophen 325 mg tablet RxNorm: 933861 1-2 Tablet(s) PO Q6 as needed 09/13/2016 09/22/2016 Inactive Linzess 145 mcg capsule RxNorm: 8049185 1 Capsule(s) PO daily 09/01/2016 10/26/2017 Inactive Linzess 145 mcg capsule RxNorm: 0889047 1 Capsule(s) PO daily 09/01/2016 08/31/2016 Inactive Zofran 4 mg tablet RxNorm: 947035 TAKE ONE TABLET BY MOUTH EVERY 4 TO 6 HOURS NEEDED 08/29/2016 08/02/2017 Inactive Voltaren 1 % topical gel RxNorm: 522743 4 Gram(s) TOP QID 08/2309/12/2016 Inactive levothyroxine 88 mcg tablet RxNorm: 125485 TAKE ONE TABLET BY MOUTH ONCE DAILY 08/19/2016 12/16/2016 Inactive hydrocodone 10 mg-acetaminophen 325 mg tablet RxNorm: 005779 1 Tablet(s) PO Q6 as needed 08/17/2016 09/12/2016 Inactive nystatin 100,000 unit/gram topical powder RxNorm: 988306 1 Application TOP QID 08/16/2016 08/25/2016 Inactive Cymbalta 60 mg capsule,delayed release RxNorm: 401836 TAKE ONE CAPSULE BY MOUTH ONCE DAILY 08/10/2016 11/29/2016 Inactive Voltaren 1 % topical gel RxNorm: 758303 4 Gram(s) TOP QID 08/1008/22/2016 Inactive Voltaren 1 % topical gel RxNorm: 118694 4 Gram(s) TOP QID 08/1008/09/2016 Inactive promethazine 25 mg tablet RxNorm: 748120 TAKE ONE TABLET BY MOUTH EVERY 8 HOURS NEEDED FOR NAUSEA 07/29/20162017 Inactive nystatin 100,000 unit/gram topical powder RxNorm: 711024 1 Application TOP QID 07/26/2016 08/04/2016 Inactive Levemir FlexTouch U-100 Insulin 100 unit/mL (3 mL) subcutaneous pen RxNorm: 801828 35 Unit(s) SQ BID 07/26/201609/2016 Inactive 35 q am and 30 q pm cyclobenzaprine 10 mg tablet RxNorm: 479631 TAKE ONE TABLET BY MOUTH EVERY 8 HOURS NEEDED 07/14/2016 08/22/2016 Inactive hydrocodone 10 mg-acetaminophen 325 mg tablet RxNorm: 265485 1 Tablet(s) PO Q6 as needed 07/11/2016 08/16/2016 Inactive nystatin 100,000 unit/mL oral suspension RxNorm: 063508 5 Milliliter(s) PO QID x 10 days 07/05/2016 07/04/2016 Inactive nystatin 100,000 unit/mL oral suspension RxNorm: 018125 5 Milliliter(s) PO QID x 10 days 07/05/2016 07/04/2016 Inactive nystatin 100,000 unit/mL oral suspension RxNorm: 608366 5 Milliliter(s) PO QID x 10 days 07/05/2016 07/14/2016 Inactive Swish et swallow doxycycline monohydrate 100 mg tablet RxNorm: 581258 1 Tablet(s) PO BID 06/24/2016 07/03/2016 Inactive give doxycyline hyclate promethazine 25 mg tablet RxNorm: 488553 TAKE ONE TABLET BY MOUTH EVERY 8 HOURS NEEDED FOR NAUSEA 06/01/20162016 Inactive pantoprazole 40 mg tablet,delayed release RxNorm: 388929 1 Tablet(s) PO BID 05/25/2016 08/02/2017 Inactive Zofran 4 mg tablet RxNorm: 817338 1 Tablet(s) PO Q12 PRN TAKE 1 TABLET BY MOUTH EVERY 4 TO 6 HOURS NEEDED 05/24/2016 Inactive hydrocodone 10 mg-acetaminophen 325 mg tablet RxNorm: 926945 1 Tablet(s) PO Q6 as needed 05/24/2016 07/10/2016 Inactive Levemir FlexTouch 100 unit/mL (3 mL) subcutaneous insulin pen RxNorm: 641150 25 Unit(s) SQ BID 05/24/2016 06/22/2016 Inactive Xanax 0.5 mg tablet RxNorm: 765626 Tablet(s) TAKE ONE TABLET BY MOUTH THREE TIMES DAILY 05/11/2016 07/09/2016 Inactive BD Insulin Pen Needle UF Short 31 gauge x 5/16" [place] [facility] [place]/05/2016 Inactive BD Insulin Pen Needle UF Short 31 gauge x 5/16" [place] [facility] [place] 06/04/2016 Inactive colestipol 1 gram tablet RxNorm: 9870695 Tablet(s) TAKE 1 TABLET BY MOUTH TWICE DAILY 04/22/2016 04/16/2017 Inactive Levemir FlexTouch 100 unit/mL (3 mL) subcutaneous insulin pen RxNorm: 385367 20 Unit(s) SQ BID 04/19/2016 05/18/2016 Inactive 25 UNITS Q AM AND 20 UNITS Q HS Cartia XT 180 mg capsule,extended release RxNorm: 910983 Capsule(s) BID 04/11/2016 04/05/2017 Inactive hydrocodone 10 mg-acetaminophen 325 mg tablet RxNorm: 948971 1 Tablet(s) PO Q6 as needed 04/11/2016 05/23/2016 Inactive Levemir FlexTouch 100 unit/mL (3 mL) subcutaneous insulin pen RxNorm: 256475 20 Unit(s) SQ BID 04/11/2016 04/18/2016 Inactive 20 UNITS Q AM AND 15 UNITS Q HS X 1 WEEK THEN 20 UNITS BID levothyroxine 88 mcg tablet RxNorm: 223129 1 Tablet(s) PO daily 03/21/2016 07/18/2016 Inactive Cymbalta 60 mg capsule,delayed release RxNorm: 414971 1 Capsule(s) PO daily 03/21/2016 07/18/2016 Inactive diltiazem ER (XR/XT) 240 mg capsule,extended release, controlled RxNorm: 271621 1 Capsule(s) PO BID 03/18/20162017 Inactive doxycycline hyclate 100 mg tablet RxNorm: 473309 1 Tablet(s) PO BID 03/11/2016 03/17/2016 Inactive Levemir FlexTouch 100 unit/mL (3 mL) subcutaneous insulin pen RxNorm: 951274 10 Unit(s) SQ BID 03/11/2016 04/09/2016 Inactive Lasix 40 mg tablet RxNorm: 599449 1 Tablet(s) PO BID 201509/06/2016 Inactive gabapentin 600 mg tablet RxNorm: 107417 Tablet(s) 1.5 TABLET(S) PO TID 03/04/2016 08/30/2016 Inactive Toujeo SoloStar 300 unit/mL (1.5 mL) subcutaneous insulin pen RxNorm: 2462560 10 Unit(s) SQ QHS 02/26/2016 03/26/2016 Inactive polymyxin B sulfate 10,000 unit-trimethoprim 1 mg/mL eye drops RxNorm: 193668 2 Drop(s) OPH TID 02/26/2016 03/03/2016 Inactive Lasix 20 mg tablet RxNorm: 213947 2 Tablet(s) PO BID TAKE 2 TABLETS BY MOUTH EVERY MORNING AND 2 TABLET BY MOUTH AT 3 PM 02/26/2016 03/10/2016 Inactive cyclobenzaprine 10 mg tablet RxNorm: 373100 Tablet(s) TABLET(S) TABLET(S) 1 TABLET (S) PO NEEDED TAKE 1 TABLET BY MOUTH EVERY 8 HOURS NEEDED 02/26/2016 07/13/2016 Inactive early fill- pt lost med Levemir FlexTouch 100 unit/mL (3 mL) subcutaneous insulin pen RxNorm: 301741 16 Unit(s) SQ QHS 02/18/2016 02/17/2016 Inactive Levemir FlexTouch 100 unit/mL (3 mL) subcutaneous insulin pen RxNorm: 485184 16 Unit(s) SQ QHS 02/18/2016 02/25/2016 Inactive Levemir 100 unit/mL subcutaneous solution RxNorm: 865433 16 Unit(s) SQ QHS 02/15/2016 02/17/2016 Inactive disp needles as well Effexor XR 37.5 mg capsule,extended release RxNorm: 251688 1 Capsule(s) QPM CAPSULE(S) PO TAKE 2 CAPSULES BY MOUTH EVERY MORNING AND 1 CAPSULE BY MOUTH EVERY NIGHT AT BEDTIME 02/15/20162015 Inactive clotrimazole 100 mg vaginal tablet RxNorm: 268150 1 Tablet(s) VAG QHS 02/05/2016 02/11/2016 Inactive clotrimazole 100 mg vaginal tablet RxNorm: 909521 1 Tablet(s) VAG QHS 02/05/2016 02/04/2016 Inactive hydrocodone 10 mg-acetaminophen 325 mg tablet RxNorm: 734250 1 Tablet(s) PO Q6 as needed 02/05/2016 04/10/2016 Inactive flecainide 100 mg tablet RxNorm: 327315 1 Tablet(s) PO BID No Stop Date Active potassium chloride ER 10 mEq tablet,extended release RxNorm: 273748 1 Tablet(s) PO daily 1 TABLET(S) PO QDAY PRN TAKE WITH LASIX 02/02/2016 01/26/2017 Inactive Brovana 15 mcg/2 mL solution for nebulization RxNorm: 821981 2 Milliliter(s) INH BID PRN 02/02/2016 03/20/2016 Inactive promethazine 25 mg tablet RxNorm: 602973 1 Tablet(s) PO Q8 as needed nausea 01/27/2016 03/20/2016 Inactive promethazine 25 mg tablet RxNorm: 467330 1 Tablet(s) PO Q6 PRN 01/27/2016 02/03/2016 Inactive nystatin 100,000 unit/mL oral suspension RxNorm: 245596 5 Unit(s) PO QID 01/12/2016 01/21/2016 Inactive promethazine 25 mg tablet RxNorm: 796989 1 Tablet(s) PO Q6 PRN 12/30/2015 01/06/2016 Inactive hydrocodone 7.5 mg-acetaminophen 325 mg tablet RxNorm: 665713 1 Tablet(s) PO q 6 hours prn for pain 12/10/2015 01/06/2016 Inactive Xanax 0.5 mg tablet RxNorm: 080745 TAKE ONE TABLET BY MOUTH THREE TIMES DAILY 12/02/2015 12/31/2015 Inactive Xanax 0.5 mg tablet RxNorm: 953108 Tablet(s) TAKE 1 TABLET BY MOUTH THREE TIMES DAILY 12/02/2015 11/30/2015 Inactive Anusol-HC 25 mg rectal suppository RxNorm: 6238912 1 Suppository RTL HS 11/27/2015 09/12/2016 Inactive ropinirole 1 mg tablet RxNorm: 082154 1 Tablet(s) PO QHS 201505/24/2016 Inactive nystatin 100,000 unit/mL oral suspension RxNorm: 480622 5 Unit(s) PO QID 11/20/2015 11/29/2015 Inactive albuterol sulfate concentrate 2.5 mg/0.5 mL solution for nebulization RxNorm: 742035 3 Milliliter(s) INH Q4-6H as needed 11/10/2015 11/02/2016 Inactive doxycycline monohydrate 100 mg tablet RxNorm: 925500 1 Tablet(s) PO BID 11/10/2015 11/19/2015 Inactive give doxycyline hyclate promethazine 25 mg tablet RxNorm: 822424 1 Tablet(s) PO Q6 PRN 11/05/2015 11/12/2015 Inactive Bactroban 2 % topical ointment RxNorm: 887278 1 APPLICATION TOP BID 10/27/2015 10/26/2017 Inactive Belviq 10 mg tablet RxNorm: 5389955 1 Tablet(s) PO BID 201511/25/2015 Inactive hydrocodone 7.5 mg-acetaminophen 325 mg tablet RxNorm: 955357 1 Tablet(s) PO q 6 hours prn for pain 10/20/2015 11/18/2015 Inactive Toprol XL 100 mg tablet,extended release RxNorm: 986063 Tablet(s) TAKE 1 TABLET BY MOUTH TWICE DAILY 10/16/20152016 Inactive Diflucan 150 mg tablet RxNorm: 038922 1 Tablet(s) PO every other day 10/14/2015 10/23/2015 Inactive Xanax 0.5 mg tablet RxNorm: 704582 Tablet(s) TAKE 1 TABLET BY MOUTH THREE TIMES DAILY 10/14/2015 05/10/2016 Inactive Toprol XL 100 mg tablet,extended release RxNorm: 770760 Tablet(s) TAKE 1 TABLET BY MOUTH TWICE DAILY 10/13/20152015 Inactive cyclobenzaprine 10 mg tablet RxNorm: 306573 Tablet(s) TABLET(S) TABLET(S) 1 TABLET (S) PO NEEDED TAKE 1 TABLET BY MOUTH EVERY 8 HOURS NEEDED 10/02/2015 10/14/2015 Inactive Zofran 4 mg tablet RxNorm: 138954 Tablet(s) 1 TABLET(S) PRN TAKE 1 TABLET BY MOUTH EVERY 4 TO 6 HOURS NEEDED 09/29/2015 12/27/2015 Inactive Synthroid 88 mcg tablet RxNorm: 204661 1 Tablet(s) PO daily 1 TABLET(S) PO DAILY 09/29/2015 10/28/2015 Inactive Patient requests 90 days supply promethazine 25 mg tablet RxNorm: 615478 1 Tablet(s) PO Q6 PRN 09/29/2015 11/04/2015 Inactive Lasix 20 mg tablet RxNorm: 631847 2 Tablet(s) PO BID 201501/18/2016 Inactive promethazine 25 mg tablet RxNorm: 078860 1 Tablet(s) PO Q6 PRN 09/22/2015 09/28/2015 Inactive hydrocodone 7.5 mg-acetaminophen 325 mg tablet RxNorm: 709769 1 Tablet(s) PO q 6 hours prn for pain 09/17/2015 10/16/2015 Inactive WelChol 625 mg tablet RxNorm: 035905 3 Tablet(s) PO BID 201503/26/2017 Inactive promethazine 25 mg tablet RxNorm: 711804 1 Tablet(s) PO Q8 as needed 09/07/2015 10/26/2017 Inactive Levemir 100 unit/mL subcutaneous solution RxNorm: 919585 16 Unit(s) SQ QHS 09/01/2015 02/14/2016 Inactive pantoprazole 40 mg tablet,delayed release RxNorm: 699572 1 Tablet(s) PO daily 09/01/2015 05/24/2016 Inactive Effexor XR 37.5 mg capsule,extended release RxNorm: 854386 Capsule(s) CAPSULE(S) PO TAKE 2 CAPSULES BY MOUTH EVERY MORNING AND 1 CAPSULE BY MOUTH EVERY NIGHT AT BEDTIME 08/27/2015 02/14/2016 Inactive promethazine 25 mg tablet RxNorm: 901033 1 Tablet(s) PO Q8 as needed 08/13/2015 09/06/2015 Inactive gabapentin 600 mg tablet RxNorm: 201087 Tablet(s) 1.5 TABLET(S) PO TID 08/13/2015 02/08/2016 Inactive hydrocodone 7.5 mg-acetaminophen 325 mg tablet RxNorm: 175646 1 Tablet(s) PO q 6 hours prn for pain 08/10/2015 09/08/2015 Inactive Zofran 4 mg tablet RxNorm: 875562 Tablet(s) 1 TABLET(S) PRN TAKE 1 TABLET BY MOUTH EVERY 4 TO 6 HOURS NEEDED 08/04/2015 08/03/2015 Inactive Zofran 4 mg tablet RxNorm: 690233 Tablet(s) 1 TABLET(S) PRN TAKE 1 TABLET BY MOUTH EVERY 4 TO 6 HOURS NEEDED 08/04/2015 09/28/2015 Inactive doxycycline monohydrate 100 mg tablet RxNorm: 751382 1 Tablet(s) PO BID 08/04/2015 08/10/2015 Inactive give doxycyline hyclate Diflucan 150 mg tablet RxNorm: 445368 1 Tablet(s) PO every other day 07/31/2015 08/09/2015 Inactive nystatin 100,000 unit/mL oral suspension RxNorm: 980943 5 Milliliter(s) PO QID 07/31/2015 07/30/2015 Inactive Diflucan 150 mg tablet RxNorm: 393863 1 Tablet(s) PO every other day 07/31/2015 07/30/2015 Inactive nystatin 100,000 unit/mL oral suspension RxNorm: 209793 5 Milliliter(s) PO QID 07/31/2015 08/09/2015 Inactive Ceftin 500 mg tablet RxNorm: 988616 1 Tablet(s) PO BID 201507/23/2015 Inactive Ceftin 500 mg tablet RxNorm: 058917 1 Tablet(s) PO BID Pre-medicate with benadryl 50 mg, pepcid 20 mg, and nathanael before each dose 07/24/2015 07/30/2015 Inactive cyclobenzaprine 10 mg tablet RxNorm: 077604 TABLET(S) TABLET(S) 1 TABLET(S) PO NEEDED TAKE 1 TABLET BY MOUTH EVERY 8 HOURS NEEDED 201502/25/2016 Inactive early fill- pt lost med Synthroid 88 mcg tablet RxNorm: 696015 1 TABLET(S) PO DAILY 07/201509/28/2015 Inactive Patient requests 90 days supply cyclobenzaprine 10 mg tablet RxNorm: 285292 Tablet(s) TABLET(S) TABLET(S) 1 TABLET (S) PO NEEDED TAKE 1 TABLET BY MOUTH EVERY 8 HOURS NEEDED 07/23/2015 10/01/2015 Inactive early fill- pt lost med Promethazine VC 6.25 mg-5 mg/5 mL syrup RxNorm: 5455993 1-2 Teaspoon(s) PO Q6 PRN as needed 07/22/2015 03/20/2016 Inactive Diflucan 150 mg tablet RxNorm: 131223 1 Tablet(s) PO daily 06/201507/22/2015 Inactive Lasix 20 mg tablet RxNorm: 249406 Tablet(s) TAKE 2 TABLETS BY MOUTH EVERY MORNING AND 2 TABLET BY MOUTH AT 3PM 07/16/2015 09/21/2015 Inactive Toprol XL 100 mg tablet,extended release RxNorm: 641542 Tablet(s) TAKE 1 TABLET BY MOUTH TWICE DAILY 07/16/20152015 Inactive Cartia XT 180 mg capsule,extended release RxNorm: 972730 Capsule(s) 1 CAPSULE(S) PO DAILY TAKE 1 CAPSULE BY MOUTH AT BEDTIME ..TAKE THIS IN ADDITION TO 240 MG IN THE MORNING 07/14/2015 04/10/2016 Inactive diltiazem ER (XR/XT) 240 mg capsule,extended release, controlled RxNorm: 795336 Capsule(s) TAKE 1 CAPSULE BY MOUTH DAILY 07/14/2015 03/17/2016 Inactive gabapentin 600 mg tablet RxNorm: 449852 Tablet(s) 1.5 TABLET(S) PO TID 07/06/2015 08/12/2015 Inactive Phenergan 25 mg tablet RxNorm: 069030 1 Tablet(s) PO Q8 as needed nausea 06/29/2015 01/25/2016 Inactive doxycycline monohydrate 100 mg tablet RxNorm: 902759 1 Tablet(s) PO BID 06/29/2015 06/28/2015 Inactive doxycycline monohydrate 100 mg tablet RxNorm: 377132 1 Tablet(s) PO BID 06/29/2015 07/08/2015 Inactive give doxycyline hyclate doxycycline monohydrate 100 mg tablet RxNorm: 549694 1 Tablet(s) PO BID 06/29/2015 06/28/2015 Inactive Lasix 20 mg tablet RxNorm: 921443 Tablet(s) TAKE 2 TABLETS BY MOUTH EVERY MORNING AND 2 TABLET BY MOUTH AT 3PM 06/29/2015 07/15/2015 Inactive Lasix 20 mg tablet RxNorm: 471983 Tablet(s) TAKE 2 TABLETS BY MOUTH EVERY MORNING AND 1 TABLET BY MOUTH AT 3PM 06/26/2015 06/28/2015 Inactive Xanax 0.5 mg tablet RxNorm: 257073 Tablet(s) TAKE 1 TABLET BY MOUTH THREE TIMES DAILY 06/26/2015 07/25/2015 Inactive Kenalog 40 mg/mL suspension for injection RxNorm: 2770848 Milliliter(s) Inj 06/26/2015 06/26/2015 Inactive hydrocodone 7.5 mg-acetaminophen 325 mg tablet RxNorm: 280833 1 Tablet(s) PO q 6 hours prn for pain 06/26/2015 07/25/2015 Inactive Dexilant 60 mg capsule, delayed release RxNorm: 392334 1 Capsule(s) PO daily 06/26/2015 08/24/2015 Inactive colestipol 1 gram tablet RxNorm: 9824910 1 TABLET(S) PO BID TAKE 1 TABLET BY MOUTH TWICE DAILY 06/16/2015 03/11/2016 Inactive hydrocodone 7.5 mg-acetaminophen 325 mg tablet RxNorm: 019571 1 Tablet(s) PO q 6 hours prn for pain 06/11/2015 06/25/2015 Inactive cyclobenzaprine 10 mg tablet RxNorm: 561767 TABLET(S) TABLET(S) 1 TABLET(S) PO NEEDED TAKE 1 TABLET BY MOUTH EVERY 8 HOURS NEEDED 201507/22/2015 Inactive early fill- pt lost med Zofran 4 mg tablet RxNorm: 222469 1 TABLET(S) PRN TAKE 1 TABLET BY MOUTH EVERY 4 TO 6 HOURS NEEDED 05/25/20152015 Inactive Zofran 4 mg tablet RxNorm: 762420 1 Tablet(s) PRN TAKE 1 TABLET BY MOUTH EVERY 4 TO 6 HOURS NEEDED 05/19/20152015 Inactive gabapentin 600 mg tablet RxNorm: 094546 1.5 TABLET(S) PO TID 07/05/2015 Inactive Lasix 20 mg tablet RxNorm: 139020 TAKE 2 TABLETS BY MOUTH EVERY MORNING AND 1 TABLET BY MOUTH AT 3PM 05/07/20152015 Inactive Effexor XR 37.5 mg capsule,extended release RxNorm: 528493 Capsule(s) CAPSULE(S) PO TAKE 2 CAPSULES BY MOUTH EVERY MORNING AND 1 CAPSULE BY MOUTH EVERY NIGHT AT BEDTIME 04/15/2015 08/26/2015 Inactive Diflucan 150 mg tablet RxNorm: 434701 1 Tablet(s) PO daily 04/18/2015 Inactive Victoza 3-Babak 0.6 mg/0.1 mL (18 mg/3 mL) subcutaneous pen injector RxNorm: 830977 1.8 Milligram(s) SQ daily 04/14/201508/10 Inactive Levaquin 500 mg tablet RxNorm: 896226 1 Tablet(s) PO daily 04/20/2015 Inactive potassium chloride ER 10 mEq tablet,extended release RxNorm: 644720 1 TABLET(S) PO QDAY PRN TAKE WITH LASIX 04/13/201504/2016 Inactive Effexor XR 37.5 mg capsule,extended release RxNorm: 097684 CAPSULE(S) PO TAKE 2 CAPSULES BY MOUTH EVERY MORNING AND 1 CAPSULE BY MOUTH EVERY NIGHT AT BEDTIME 04/10/2015 04/14/2015 Inactive pantoprazole 40 mg tablet,delayed release RxNorm: 989458 1 Tablet(s) PO daily 03/31/2015 08/31/2015 Inactive Dexilant 60 mg capsule, delayed release RxNorm: 223657 1 Capsule(s) PO daily 03/31/2015 03/31/2015 Inactive pantoprazole 40 mg tablet,delayed release RxNorm: 983773 1 Tablet(s) PO daily 03/31/2015 03/30/2015 Inactive Dexilant 60 mg capsule, delayed release RxNorm: 127448 1 Capsule(s) PO daily 03/31/2015 05/29/2015 Inactive Dexilant 60 mg capsule, delayed release RxNorm: 828357 1 Capsule(s) PO daily 03/30/2015 03/30/2015 Inactive hydrocodone 7.5 mg-acetaminophen 325 mg tablet RxNorm: 618880 1 Tablet(s) PO q 6 hours prn for pain 03/30/2015 04/28/2015 Inactive cyclobenzaprine 10 mg tablet RxNorm: 638785 TABLET(S) TABLET(S) 1 TABLET(S) PO NEEDED TAKE 1 TABLET BY MOUTH EVERY 8 HOURS NEEDED 201405/31/2015 Inactive early fill- pt lost med Xanax 0.5 mg tablet RxNorm: 472204 Tablet(s) TAKE 1 TABLET BY MOUTH THREE TIMES DAILY 03/25/2015 04/23/2015 Inactive Lasix 20 mg tablet RxNorm: TAKE 2 TABLETS BY MOUTH EVERY MORNING AND 1 TABLET BY MOUTH AT 3PM 03/23/20152014 Inactive Levemir Flexpen 100 unit/mL (3 mL) solution subcutaneous insulin pen RxNorm: 282771 15 Unit(s) SQ BID 03/20/20152015 Inactive give quanity sufficient for 1 month- Dexilant 60 mg capsule, delayed release RxNorm: 377281 1 Capsule(s) PO daily 03/19/2015 03/29/2015 Inactive Dexilant 60 mg capsule, delayed release RxNorm: 308820 1 Capsule(s) PO daily 03/19/2015 03/18/2015 Inactive Diflucan 150 mg tablet RxNorm: 202280 1 Tablet(s) PO every other day x7 doses 03/19/2015 03/21/2015 Inactive hydrocodone 7.5 mg-acetaminophen 325 mg tablet RxNorm: 482359 1 Tablet(s) PO q 6 hours prn for pain 02/27/2015 03/28/2015 Inactive Lasix 20 mg tablet RxNorm: 574920 TAKE 2 TABLETS BY MOUTH EVERY MORNING AND 1 TABLET BY MOUTH AT 3PM 02/27/20152014 Inactive omeprazole 20 mg capsule,delayed release RxNorm: 953960 1 CAPSULE(S) PO DAILY TAKE 1 CAPSULE BY MOUTH TWICE DAILY 02/26/2015 10/26/2017 Inactive Zofran 4 mg tablet RxNorm: 167877 1 Tablet(s) PRN TAKE 1 TABLET BY MOUTH EVERY 4 TO 6 HOURS NEEDED 02/24/20152014 Inactive fluconazole 150 mg tablet RxNorm: 822224 1 Tablet(s) PO every other day x 5 doses 02/19/2015 02/28/2015 Inactive cyclobenzaprine 10 mg tablet RxNorm: 870582 TABLET(S) TABLET(S) 1 TABLET(S) PO NEEDED TAKE 1 TABLET BY MOUTH EVERY 8 HOURS NEEDED 201403/29/2015 Inactive early fill- pt lost med hydrocodone 7.5 mg-acetaminophen 325 mg tablet RxNorm: 924388 1 Tablet(s) PO q 6 hours prn for pain 01/29/2015 02/26/2015 Inactive Xanax 0.5 mg tablet RxNorm: 513930 Tablet(s) TAKE 1 TABLET BY MOUTH THREE TIMES DAILY 01/29/2015 02/27/2015 Inactive Bactroban 2 % topical ointment RxNorm: 494878 1 APPLICATION TOP BID 01/26/2015 10/26/2015 Inactive Bactroban 2 % topical ointment RxNorm: 534550 1 Application TOP BID 01/15/2015 01/25/2015 Inactive doxycycline hyclate 100 mg tablet RxNorm: 430995 1 Tablet(s) PO BID 01/15/2015 01/21/2015 Inactive nystatin 100,000 unit/mL oral suspension RxNorm: 498069 5 Milliliter(s) PO QID 01/15/2015 01/24/2015 Inactive Cartia XT 180 mg capsule,extended release RxNorm: 239629 1 CAPSULE(S) PO DAILY TAKE 1 CAPSULE BY MOUTH AT BEDTIME ..TAKE THIS IN ADDITION TO 240 MG IN THE MORNING 01/13/2015 07/13/2015 Inactive Lasix 20 mg tablet RxNorm: TAKE 2 TABLETS BY MOUTH EVERY MORNING AND 1 TABLET BY MOUTH AT 3PM 01/08/20152014 Inactive fluconazole 150 mg tablet RxNorm: 691493 1 Tablet(s) PO daily 01/01/2015 01/05/2015 Inactive hydrocodone 7.5 mg-acetaminophen 325 mg tablet RxNorm: 876029 1 Tablet(s) PO q 6 hours prn for pain 01/01/2015 01/28/2015 Inactive colestipol 1 gram tablet RxNorm: 7022876 1 TABLET(S) PO BID TAKE 1 TABLET BY MOUTH TWICE DAILY 12/18/2014 06/15/2015 Inactive colestipol 1 gram tablet RxNorm: 0725955 1 TABLET(S) PO BID TAKE 1 TABLET BY MOUTH TWICE DAILY 12/18/2014 09/13/2015 Inactive Lasix 20 mg tablet RxNorm: TAKE 2 TABLETS BY MOUTH EVERY MORNING AND 2 TABLETS AND AT 3PM 12/11/2014 12/25/2014 Inactive cyclobenzaprine 10 mg tablet RxNorm: 816267 TABLET(S) 1 TABLET(S) PO NEEDED TAKE 1 TABLET BY MOUTH EVERY 8 HOURS NEEDED 12/11/2014 05/31/2017 Inactive Lasix 20 mg tablet RxNorm: 089035 Tablet(s) TABLET(S) PO TAKE 2 TABLETS BY MOUTH EVERY MORNING AND 1 TABLET BY MOUTH AT 3 PM 12/10/2014 12/10/2014 Inactive fill early- pt lost them cyclobenzaprine 10 mg tablet RxNorm: 524234 Tablet(s) TABLET(S) 1 TABLET(S) PO NEEDED TAKE 1 TABLET BY MOUTH EVERY 8 HOURS NEEDED 201402/15/2015 Inactive early fill- pt lost med cyclobenzaprine 10 mg tablet RxNorm: 936118 TABLET(S) 1 TABLET(S) PO NEEDED TAKE 1 TABLET BY MOUTH EVERY 8 HOURS NEEDED 12/02/2014 12/09/2014 Inactive hydrocodone 7.5 mg-acetaminophen 325 mg tablet RxNorm: 811541 1 Tablet(s) PO q 6 hours prn for pain 12/01/2014 12/30/2014 Inactive diltiazem ER (XR/XT) 240 mg capsule,extended release, controlled RxNorm: 326297 TAKE 1 CAPSULE BY MOUTH DAILY 11/30/2014 07/13/2015 Inactive Xanax 0.5 mg tablet RxNorm: 310672 1 Tablet(s) PO TID PRN as needed 11/19/2014 11/19/2014 Inactive (Appended: Controlled substance [facility] refill - [facility] [id number]|1|0|1) Xanax 0.5 mg tablet RxNorm: 926630 TAKE 1 TABLET BY MOUTH THREE TIMES DAILY 11/19/2014 12/18/2014 Inactive Toprol XL 100 mg tablet,extended release RxNorm: 911175 TAKE 1 TABLET BY MOUTH TWICE DAILY 11/06/2014 07/15/2015 Inactive Diflucan 150 mg tablet RxNorm: 844971 1 Tablet(s) PO every other day x7 doses 11/05/2014 11/07/2014 Inactive omeprazole 20 mg capsule,delayed release RxNorm: 394659 1 Capsule(s) PO daily TAKE 1 CAPSULE BY MOUTH TWICE DAILY 11/04/2014 02/01/2015 Inactive cyclobenzaprine 10 mg tablet RxNorm: 110640 TABLET(S) 1 TABLET(S) PO NEEDED TAKE 1 TABLET BY MOUTH EVERY 8 HOURS NEEDED 10/28/2014 12/01/2014 Inactive hydrocodone 7.5 mg-acetaminophen 325 mg tablet RxNorm: 463484 1 Tablet(s) PO q 6 hours prn for pain 10/21/2014 11/19/2014 Inactive gabapentin 600 mg tablet RxNorm: 236150 1.5 Tablet(s) PO TID 04/30/2015 Inactive Xanax 0.5 mg tablet RxNorm: 397360 Tablet(s) TAKE 1 TABLET BY MOUTH THREE TIMES DAILY 10/01/2014 10/30/2014 Inactive (Response to an electronic controlled substance refill request - RxReferenceNumber: [id number]|1|0|1) Xanax 0.25 mg tablet RxNorm: 241750 1 Tablet(s) PO Q8 PRN as needed 09/30/2014 09/30/2014 Inactive Lasix 20 mg tablet RxNorm: 766327 Tablet(s) TAKE 2 TABLETS BY MOUTH EVERY MORNING AND 2 TABLETS BY MOUTH AT 3 PM 09/30/2014 11/12/2014 Inactive Victoza 3-Babak 0.6 mg/0.1 mL (18 mg/3 mL) subcutaneous pen injector RxNorm: 175501 1.2 MILLIGRAM(S) SQ DAILY 0.6 X 2 WEEKS THEN INCREASE TO 1.2MG DAILY 09/26/2014 04/13/2015 Inactive Xanax 0.5 mg tablet RxNorm: 122820 TAKE 1 TABLET BY MOUTH THREE TIMES DAILY 09/25/2014 09/30/2014 Inactive (Response to an electronic controlled substance refill request - RxReferenceNumber: [id number]|1|0|1) Zofran 4 mg tablet RxNorm: 637262 TAKE 1 TABLET BY MOUTH EVERY 4 TO 6 HOURS NEEDED 09/25/2014 09/27/2014 Inactive hydrocodone 7.5 mg-acetaminophen 325 mg tablet RxNorm: 535813 1 Tablet(s) PO q 6 hours prn for pain 09/19/2014 10/18/2014 Inactive cyclobenzaprine 10 mg tablet RxNorm: 584784 TABLET(S) 1 TABLET(S) PO NEEDED TAKE 1 [...] hydrocodone 7.5 mg-acetaminophen 325 mg tablet RxNorm: 162989 1 Tablet(s) PO q 6 hours prn for pain 08/21/2014 09/18/2014 Inactive Diflucan 150 mg tablet RxNorm: 915546 1 Tablet(s) PO every other day 08/15/2014 08/17/2014 Inactive cyclobenzaprine 10 mg tablet RxNorm: 261105 Tablet(s) 1 TABLET(S) PO NEEDED TAKE 1 TABLET BY MOUTH EVERY 8 HOURS NEEDED 08/12/2014 09/14/2014 Inactive Zofran 4 mg tablet RxNorm: 263080 TAKE 1 TABLET BY MOUTH EVERY 4 TO 6 HOURS NEEDED 07/31/2014 08/02/2014 Inactive Effexor XR 37.5 mg capsule,extended release RxNorm: 941089 CAPSULE(S) PO TAKE 2 CAPSULES BY MOUTH EVERY MORNING AND 1 CAPSULE BY MOUTH EVERY NIGHT AT BEDTIME 07/28/2014 02/15/2016 Inactive Lasix 20 mg tablet RxNorm: TAKE 2 TABLETS BY MOUTH EVERY MORNING AND 2 TABLETS BY MOUTH AT 3 PM 07/22/20142014 Inactive Diflucan 150 mg tablet RxNorm: 828994 1 Tablet(s) PO daily 06/201407/23/2014 Inactive hydrocodone 7.5 mg-acetaminophen 325 mg tablet RxNorm: 025384 1 Tablet(s) PO q 6 hours prn for pain 07/14/2014 08/12/2014 Inactive Synthroid 88 mcg tablet RxNorm: 014424 1 TABLET(S) PO DAILY 10/11/2014 Inactive Effexor XR 37.5 mg capsule,extended release RxNorm: 149096 Capsule(s) PO TAKE 2 CAPSULES BY MOUTH EVERY MORNING AND 1 CAPSULE BY MOUTH EVERY NIGHT AT BEDTIME 07/07/2014 04/09/2015 Inactive Effexor XR 37.5 mg capsule,extended release RxNorm: 761748 TAKE 2 CAPSULES BY MOUTH EVERY MORNING AND 1 CAPSULE BY MOUTH EVERY NIGHT AT BEDTIME 07/07/2014 01/02/2015 Inactive WelChol 625 mg tablet RxNorm: 004245 3 TABLET(S) PO BID 201410/04/2014 Inactive WelChol 625 mg tablet RxNorm: 074040 3 Tablet(s) PO BID 201402/01/2015 Inactive Zofran 4 mg tablet RxNorm: 000113 TAKE 1 TABLET BY MOUTH EVERY 4 TO 6 HOURS NEEDED 07/03/2014 07/05/2014 Inactive Lasix 20 mg tablet RxNorm: 118153 TAKE 2 TABLETS BY MOUTH EVERY MORNING AND 2 TABLETS BY MOUTH AT 3 PM 06/26/20142014 Inactive Diflucan 150 mg tablet RxNorm: 715056 1 Tablet(s) PO daily 06/19/2014 Inactive Promethazine VC 6.25 mg-5 mg/5 mL syrup RxNorm: 1273916 1-2 Teaspoon(s) PO Q6 PRN as needed 06/12/2014 07/21/2015 Inactive hydrocodone 7.5 mg-acetaminophen 325 mg tablet RxNorm: 803069 1 Tablet(s) PO q 6 hours prn for pain 06/03/2014 07/02/2014 Inactive Levaquin 500 mg tablet RxNorm: 737809 1 Tablet(s) PO daily 01/201506/05/2014 Inactive cyclobenzaprine 10 mg tablet RxNorm: 028870 Tablet(s) 1 TABLET(S) PO NEEDED TAKE 1 TABLET BY MOUTH EVERY 8 HOURS NEEDED 05/26/2014 No Stop Date Active cyclobenzaprine 10 mg tablet RxNorm: 491093 1 TABLET(S) PO NEEDED TAKE 1 TABLET BY MOUTH EVERY 8 HOURS NEEDED 05/26/2014 08/11/2014 Inactive Lasix 20 mg tablet RxNorm: 494612 Tablet(s) TABLET(S) PO TAKE 2 TABLETS BY MOUTH EVERY MORNING AND 2 TABLET BY MOUTH AT 3 PM 05/12/2014 06/25/2014 Inactive Combivent Respimat 20 mcg-100 mcg/actuation solution for inhalation RxNorm: 7738168 INHALE 1 PUFF BY MOUTH FOUR TIMES DAILY 05/12/2014 11/07/2014 Inactive fluconazole 150 mg tablet RxNorm: 496721 1 Tablet(s) PO UD 05/12/2014 Inactive 1 tab every other day x 5 doses Activella 0.5 mg-0.1 mg tablet RxNorm: 4573480 1 TABLET(S) PO DAILY TAKE 1 TABLET BY MOUTH DAILY FOR MENOPAUSAL SYMPTOM 05/02/2014 09/21/2015 Inactive hydrocodone 7.5 mg-acetaminophen 300 mg tablet RxNorm: 192042 Tablet(s) PO TAKE 1 TABLET BY MOUTH EVERY 6 HOURS NEEDED FOR PAIN 04/21/2014 06/03/2014 Inactive ( Appended: Controlled substance eRx refill - RxReferenceNumber: [id number]|1|0|1 ) Levaquin 500 mg tablet RxNorm: 944767 1 Tablet(s) PO daily 04/21/2014 Inactive Diflucan 150 mg tablet RxNorm: 802638 1 Tablet(s) PO every other day x 4 doses 04/10/2014 06/16/2014 Inactive Lasix 20 mg tablet RxNorm: 492917 TAKE 2 TABLETS BY MOUTH EVERY MORNING AND 1 TABLET BY MOUTH AT 3 PM 04/10/20142013 Inactive potassium chloride ER 10 mEq tablet,extended release RxNorm: 854451 1 TABLET(S) PO QDAY PRN TAKE WITH LASIX 04/09/2014 Inactive Levaquin 250 mg tablet RxNorm: 192139 1 Tablet(s) PO daily 08/201304/07/2014 Inactive 2 tabs today then 1 tab daily until gone atorvastatin 40 mg tablet RxNorm: 690115 1 Tablet(s) daily 1 TABLET(S) PO DAILY 03/25/2014 04/10/2016 Inactive TAKE 1 TABLET BY MOUTH DAILY (THIS IS AN INCREASE IN DOSAGE) Zofran 4 mg tablet RxNorm: 312910 1 Tablet(s) PO Q4-6H 201307/02/2014 Inactive Xanax 0.5 mg tablet RxNorm: 964815 TAKE 1 TABLET BY MOUTH THREE TIMES DAILY NEEDED 03/19/2014 04/17/2014 Inactive (Response to an electronic controlled substance refill request - RxReferenceNumber: [id number]|1|0|1) hydrocodone 7.5 mg-acetaminophen 300 mg tablet RxNorm: 964462 Tablet(s) PO TAKE 1 TABLET BY MOUTH EVERY 6 HOURS NEEDED FOR PAIN 03/19/2014 04/20/2014 Inactive ( Appended: Controlled substance eRx refill - RxReferenceNumber: [id number]|1|0|1 ) atorvastatin 40 mg tablet RxNorm: 188191 1 TABLET(S) PO DAILY 03/10/2014 03/24/2014 Inactive TAKE 1 TABLET BY MOUTH DAILY (THIS IS AN INCREASE IN DOSAGE) WelChol 625 mg tablet RxNorm: 983725 3 Tablet(s) PO BID 201303/06/2014 Inactive WelChol 625 mg tablet RxNorm: 798807 3 Tablet(s) PO BID 201307/04/2014 Inactive Lasix 20 mg tablet RxNorm: 907242 Tablet(s) TABLET(S) PO TAKE 2 TABLETS BY MOUTH EVERY MORNING AND 2 TABLET BY MOUTH AT 3 PM 03/03/2014 05/11/2014 Inactive Lasix 20 mg tablet RxNorm: 924864 TABLET(S) PO TAKE 2 TABLETS BY MOUTH EVERY MORNING AND 1 TABLET BY MOUTH AT 3 PM 02/20/2014 03/02/2014 Inactive gabapentin 600 mg tablet RxNorm: 968808 1.5 Tablet(s) PO TID 09/16/2014 Inactive Synthroid 88 mcg tablet RxNorm: 394953 1 TABLET(S) PO DAILY 05/18/2014 Inactive cyclobenzaprine 10 mg tablet RxNorm: 077834 1 TABLET(S) PO NEEDED TAKE 1 TABLET BY MOUTH EVERY 8 HOURS NEEDED 02/18/2014 05/25/2014 Inactive doxycycline hyclate 100 mg tablet RxNorm: 228869 1 Tablet(s) PO BID 02/13/2014 02/22/2014 Inactive Bactroban 2 % topical ointment RxNorm: 799266 1 Application TOP BID 02/13/2014 03/12/2014 Inactive Victoza 3-Babak 0.6 mg/0.1 mL (18 mg/3 mL) subcutaneous pen injector RxNorm: 301646 1.2 MILLIGRAM(S) SQ DAILY 0.6 X 2 WEEKS THEN INCREASE TO 1.2MG DAILY 02/10/2014 05/10/2014 Inactive albuterol sulfate 1.25 mg/3 mL solution for nebulization RxNorm: 692729 3 MILLILITER(S) INH TID 02/07/20142014 Inactive 1 box Victoza 3-Babak 0.6 mg/0.1 mL (18 mg/3 mL) subcutaneous pen injector RxNorm: 688619 1.8 Milligram(s) SQ daily 0.6 x 2 weeks then increase to 1.2mg daily 01/27/2014 05/26/2014 Inactive Levemir Flexpen 100 unit/mL (3 mL) solution subcutaneous insulin pen RxNorm: 375389 5units sq at hs, increase by 3 Unit(s) SQ at hs every 3days, goal FSBS 170 or less, do not increase above 20units, call doctor with report 01/27/2014 05/26/2014 Inactive hydrocodone 7.5 mg-acetaminophen 300 mg tablet RxNorm: 724340 Tablet(s) PO TAKE 1 TABLET BY MOUTH EVERY 6 HOURS NEEDED FOR PAIN 01/24/2014 03/18/2014 Inactive ( Appended: Controlled substance eRx refill - RxReferenceNumber: [id number]|1|0|1 ) Xanax 0.5 mg tablet RxNorm: 963772 1 Tablet(s) PO TID PRN as needed 01/24/2014 09/21/2014 Inactive (Appended: Controlled substance eRx refill - RxReferenceNumber: [id number]|1|0|1) Xanax 0.5 mg tablet RxNorm: 433987 TAKE 1 TABLET BY MOUTH THREE TIMES DAILY NEEDED 01/23/2014 02/21/2014 Inactive (Response to an electronic controlled substance refill request - RxReferenceNumber: [id number]|1|0|1) hydrocodone 5 mg-acetaminophen 325 mg tablet RxNorm: 199343 TAKE 1 TABLET BY MOUTH EVERY 6 HOURS NEEDED FOR PAIN 01/21/2014 02/19/2014 Inactive (Response to an electronic controlled substance refill request - RxReferenceNumber: [id number]| [id number]|1|0|1) Lasix 20 mg tablet RxNorm: 212103 TAKE 2 TABLETS BY MOUTH EVERY MORNING AND 1 TABLET BY MOUTH AT 3 PM 01/17/20142013 Inactive cyclobenzaprine 10 mg tablet RxNorm: 844743 1 Tablet(s) PO as needed TAKE 1 TABLET BY MOUTH EVERY 8 HOURS NEEDED 01/13/2014 02/17/2014 Inactive Anusol-HC 25 mg suppository RxNorm: 6806602 1 SUPPOSITORY RTL PRN ONE PER RECTUM NEEDED, UP TO TWICE DAILY FOR HEMORRHOID, NO MORE THAN 7 DAYS IN A ROW 01/10/2014 02/06/2014 Inactive Activella 0.5 mg-0.1 mg tablet RxNorm: 5272911 1 Tablet(s) PO daily TAKE 1 TABLET BY MOUTH DAILY FOR MENOPAUSAL SYMPTOM 01/08/2014 05/01/2014 Inactive gabapentin 600 mg tablet RxNorm: 665942 1.5 Tablet(s) PO TID 02/18/2014 Inactive gabapentin 600 mg tablet RxNorm: 016859 1.5 Tablet(s) PO TID 01/01/2014 Inactive hydrocodone 7.5 mg-acetaminophen 300 mg tablet RxNorm: 576519 Tablet(s) PO TAKE 1 TABLET BY MOUTH EVERY 6 HOURS NEEDED FOR PAIN 12/12/2013 01/23/2014 Inactive ( Appended: Controlled substance eRx refill - RxReferenceNumber: [id number]|1|0|1 ) Levaquin 250 mg tablet RxNorm: 946460 1 Tablet(s) PO daily 12/18/2013 Inactive 2 tabs today then 1 tab daily until gone Diflucan 150 mg tablet RxNorm: 592836 1 Tablet(s) PO daily 12/16/2013 Inactive do not stat until levaquin is completed Cartia XT 180 mg capsule,extended release RxNorm: 763460 1 CAPSULE(S) PO DAILY TAKE 1 CAPSULE BY MOUTH AT BEDTIME ..TAKE THIS IN ADDITION TO 240 MG IN THE MORNING 12/12/2013 12/06/2014 Inactive diltiazem ER (XR/XT) 240 mg capsule,extended release, controlled RxNorm: 764383 1 Capsule(s) PO daily TAKE 1 CAPSULE BY MOUTH EVERY DAY 11/28/2014 Inactive Effexor XR 37.5 mg capsule,extended release RxNorm: 584166 Capsule(s) PO TAKE 2 CAPSULES BY MOUTH EVERY MORNING AND 1 CAPSULE BY MOUTH EVERY NIGHT AT BEDTIME 12/04/2013 07/06/2014 Inactive Lasix 20 mg tablet RxNorm: 707992 TABLET(S) PO TAKE 2 TABLETS BY MOUTH EVERY MORNING AND 1 TABLET BY MOUTH AT 3 PM 12/04/2013 12/09/2014 Inactive Voltaren 1 % topical gel RxNorm: 006585 4 Gram(s) TOP QID 11/2703/26/2014 Inactive Cartia XT 180 mg capsule,extended release RxNorm: 040188 1 Capsule(s) PO daily TAKE 1 CAPSULE BY MOUTH AT BEDTIME ..TAKE THIS IN ADDITION TO 240 MG IN THE MORNING 11/27/2013 01/12/2015 Inactive Lasix 20 mg tablet RxNorm: 482690 TABLET(S) PO TAKE 2 TABLETS BY MOUTH EVERY MORNING AND 1 TABLET BY MOUTH AT 3 PM 11/26/2013 02/19/2014 Inactive colestipol 1 gram tablet RxNorm: 1666738 1 Tablet(s) PO BID TAKE 1 TABLET BY MOUTH TWICE DAILY 11/26/2013 11/20/2014 Inactive cyclobenzaprine 10 mg tablet RxNorm: 346125 Tablet(s) PO TAKE 1 TABLET BY MOUTH EVERY 8 HOURS NEEDED 11/21/20132013 Inactive Diflucan 150 mg tablet RxNorm: 053076 1 Tablet(s) PO daily TAKE 1 TABLET BY MOUTH EVERY OTHER DAY FOR 8 DOSES 11/14/201306/2013 Inactive peak flow meter-inh assist dev kit RxNorm: 1 dose Miscellaneous PRN 11/14/2013 10/27/2017 Inactive Effexor XR 37.5 mg capsule,extended release RxNorm: 168289 Capsule(s) PO TAKE 2 CAPSULES BY MOUTH EVERY MORNING AND 1 CAPSULE BY MOUTH EVERY NIGHT AT BEDTIME 11/04/2013 12/03/2013 Inactive Anusol-HC 25 mg suppository RxNorm: 5890100 1 Suppository RTL PRN one per rectum as needed, up to twice daily for hemorrhoid, no more than 7 days in a row 10/23/2013 10/22/2013 Inactive Anusol-HC 25 mg suppository RxNorm: 5346412 1 Suppository RTL PRN one per rectum as needed, up to twice daily for hemorrhoid, no more than 7 days in a row 10/23/2013 01/09/2014 Inactive Activella 0.5 mg-0.1 mg tablet RxNorm: 0624820 Tablet(s) PO TAKE 1 TABLET BY MOUTH DAILY FOR MENOPAUSAL SYMPTOM 10/21/2013 01/07/2014 Inactive cyclobenzaprine 10 mg tablet RxNorm: 987367 Tablet(s) PO TAKE 1 TABLET BY MOUTH EVERY 8 HOURS NEEDED 10/21/20132013 Inactive Lasix 20 mg tablet RxNorm: 318234 Tablet(s) PO TAKE 2 TABLETS BY MOUTH EVERY MORNING AND 1 TABLET BY MOUTH AT 3 PM 10/17/2013 02/25/2016 Inactive Bactroban 2 % topical ointment RxNorm: 595826 1 Application TOP BID 10/10/2013 11/06/2013 Inactive Zofran 4 mg tablet RxNorm: 358439 1 Tablet(s) PO Q4-6H 201303/20/2014 Inactive Bactroban 2 % topical ointment RxNorm: 062814 1 Application TOP BID 09/27/2013 10/09/2013 Inactive hydrocodone 5 mg-acetaminophen 325 mg tablet RxNorm: 744438 Tablet(s) PO TAKE 1 TABLET BY MOUTH EVERY 6 HOURS NEEDED FOR PAIN 09/26/2013 12/11/2013 Inactive ( Appended: Controlled substance eRx refill - RxReferenceNumber: [id number]|1|0|1 ) hydrocodone 5 mg-acetaminophen 325 mg tablet RxNorm: 072714 1 Tablet(s) PO Q6 PRN 09/26/2013 01/24/2014 Inactive cyclobenzaprine 10 mg tablet RxNorm: 361473 Tablet(s) PO TAKE 1 TABLET BY MOUTH EVERY 8 HOURS NEEDED 09/16/2013 No Stop Date Active omeprazole 20 mg capsule,delayed release RxNorm: 541643 Capsule(s) PO TAKE 1 CAPSULE BY MOUTH TWICE DAILY 09/02/2013 Inactive Lasix 20 mg tablet RxNorm: 979306 Tablet(s) PO TAKE 2 TABLETS BY MOUTH EVERY MORNING AND 1 TABLET BY MOUTH AT 3 PM 09/02/2013 04/10/2016 Inactive Diflucan 150 mg tablet RxNorm: 523529 Tablet(s) PO TAKE 1 TABLET BY MOUTH EVERY OTHER DAY FOR 8 DOSES 08/29/20132013 Inactive Effexor XR 37.5 mg capsule,extended release RxNorm: 611068 Capsule(s) PO TAKE 2 CAPSULES BY MOUTH EVERY MORNING AND 1 CAPSULE BY MOUTH EVERY NIGHT AT BEDTIME 08/29/2013 11/03/2013 Inactive diltiazem ER (XR/XT) 240 mg capsule,extended release, controlled RxNorm: 893686 Capsule(s) PO TAKE 1 CAPSULE BY MOUTH EVERY DAY 201312/03/2013 Inactive Xanax 0.5 mg tablet RxNorm: 125071 1 Tablet(s) PO TID PRN 11/2013 No Stop Date Active (Appended: Controlled substance eRx refill - RxReferenceNumber: [id number]| [id number]|1|0|1) colestipol 1 gram tablet RxNorm: 7366984 Tablet(s) PO TAKE 1 TABLET BY MOUTH TWICE DAILY 08/26/2013 11/25/2013 Inactive Victoza 3-Babak 0.6 mg/0.1 mL (18 mg/3 mL) subcutaneous pen injector RxNorm: 624192 1.2 Milligram(s) SQ daily 0.6 x 2 weeks then increase to 1.2mg daily 08/19/2013 12/16/2013 Inactive Synthroid 88 mcg tablet RxNorm: 792467 1 Tablet(s) PO daily 12/09/2013 Inactive Lasix 20 mg tablet RxNorm: Tablet(s) PO TAKE 2 TABLETS BY MOUTH EVERY MORNING AND 2 TABLETS BY MOUTH AT 3 PM 08/12/2013 10/18/2016 Inactive Xanax 0.5 mg tablet RxNorm: 631797 1 Tablet(s) PO TID PRN No Stop Date Active (Appended: Controlled substance eRx refill - RxReferenceNumber: [id number]| [id number]|1|0|1) Lasix 20 mg tablet RxNorm: Tablet(s) PO TAKE 2 TABLETS BY MOUTH EVERY MORNING AND 1 TABLET BY MOUTH AT 3 PM 08/07/2013 08/11/2013 Inactive Voltaren 1 % topical gel RxNorm: 204008 4 Gram(s) TOP QID 08/0111/26/2013 Inactive Zyvox 600 mg tablet RxNorm: 964635 1 Tablet(s) PO BID 201307/27/2013 Inactive please call the office is this is too expensive for the pt Zyvox 600 mg tablet RxNorm: 821861 1 Tablet(s) PO BID 201307/17/2013 Inactive hydrocodone 5 mg-acetaminophen 325 mg tablet RxNorm: 7702035 1 Tablet(s) PO Q6 PRN 07/15/2013 09/26/2013 Inactive Zofran 4 mg tablet RxNorm: 137524 1 Tablet(s) PO Q4-6H 201310/02/2013 Inactive Lasix 20 mg tablet RxNorm: 082849 Tablet(s) PO TAKE 2 TABLETS BY MOUTH EVERY MORNING AND 1 TABLET BY MOUTH AT 3 PM 07/11/2013 10/18/2016 Inactive cyclobenzaprine 10 mg tablet RxNorm: 158607 1 Tablet(s) PO Q8 PRN 06/27/2013 08/25/2013 Inactive gabapentin 600 mg tablet RxNorm: 871664 1.5 Tablet(s) PO TID 01/02/2014 Inactive Lasix 20 mg tablet RxNorm: 174476 Tablet(s) PO TAKE 2 TABLETS BY MOUTH EVERY MORNING AND 1 TABLET BY MOUTH AT 3 PM 06/17/2013 07/10/2013 Inactive hydrocodone 5 mg-acetaminophen 325 mg tablet RxNorm: 547985 1 Tablet(s) PO Q6 PRN 06/10/2013 07/14/2013 Inactive hydrocortisone 2.5 % rectal cream RxNorm: 094360 1 Suppository RTL BID PRN 06/10/2013 06/29/2013 Inactive Flexeril 10 mg tablet RxNorm: 093604 1 Tablet(s) PO Q8 PRN 06/0406/26/2013 Inactive diltiazem ER (XR/XT) 240 mg capsule,extended release, controlled RxNorm: 615534 Capsule(s) PO TAKE 1 CAPSULE BY MOUTH EVERY DAY 201310/26/2017 Inactive omeprazole 20 mg capsule,delayed release RxNorm: 329985 Capsule(s) PO TAKE 1 CAPSULE BY MOUTH TWICE DAILY 05/24/2013 Inactive colestipol 1 gram tablet RxNorm: 5612538 Tablet(s) PO TAKE 1 TABLET BY MOUTH TWICE DAILY 05/23/2013 04/21/2016 Inactive Januvia 100 mg tablet RxNorm: 427826 1 Tablet(s) PO daily 201308/18/2013 Inactive Activella 0.5 mg-0.1 mg tablet RxNorm: 411949 Tablet(s) PO TAKE 1 TABLET BY MOUTH DAILY FOR MENOPAUSAL SYMPTOM 05/17/2013 Inactive Xanax 0.5 mg tablet RxNorm: 212245 1 Tablet(s) PO TID PRN 08/06/2013 Inactive (Appended: Controlled substance eRx refill - RxReferenceNumber: [id number]| [id number]|1|0|1) Kenalog 40 mg/mL suspension for injection RxNorm: 1937975 Milliliter(s) Inj 05/07/2013 05/07/2013 Inactive levofloxacin 500 mg tablet RxNorm: 250112 1 Tablet(s) PO daily pt to take 500mg on day#1, 3, 5, 7 and 1/2 tablet on days 2, 4, 6, and 8 05/0705/14/2013 Inactive Lyrica 50 mg capsule RxNorm: 168701 1 Capsule(s) PO TID 201206/26/2013 Inactive hydrocodone 5 mg-acetaminophen 500 mg tablet RxNorm: 194490 1 Tablet(s) PO Q6 PRN 04/22/2013 06/09/2013 Inactive Zofran 4 mg tablet RxNorm: 615338 1 Tablet(s) PO Q4-6H 201207/14/2013 Inactive Zofran 4 mg tablet RxNorm: 132459 1 Tablet(s) PO Q6 PRN 04/0404/08/2013 Inactive hydrocodone 5 mg-acetaminophen 500 mg tablet RxNorm: 046013 1 Tablet(s) PO Q6 PRN 03/21/2013 04/21/2013 Inactive Diflucan 150 mg tablet RxNorm: 906966 1 Tablet(s) PO every other day 1 pill po every other day x 8 doses 03/19/201306/26 Inactive potassium chloride ER 10 mEq tablet,extended release RxNorm: 503358 1 Tablet(s) PO QDAY PRN take with lasix 03/07/201302/2014 Inactive potassium chloride ER 10 mEq tablet,extended release RxNorm: 600717 1 Tablet(s) PO QDAY PRN take with lasix 03/04/2013 Inactive fluconazole 150 mg tablet RxNorm: 510643 1 Tablet(s) PO daily 03/01/2013 02/28/2013 Inactive fluconazole 150 mg tablet RxNorm: 774024 1 Tablet(s) PO daily 03/01/2013 03/05/2013 Inactive Combivent 18 mcg-103 mcg/actuation Aerosol Inhaler RxNorm: 412759 2 Puff(s) INH QID 02/12/2013 02/12/2013 Inactive Zofran 4 mg tablet RxNorm: 103925 1 Tablet(s) PO Q6 PRN 02/1104/03/2013 Inactive Lasix 20 mg tablet RxNorm: 200039 1 Tablet(s) PO BID one pill in morning and one pill in afternoon (3pm) 02/04/2013 Inactive Xopenex HFA 45 mcg/actuation Aerosol Inhaler RxNorm: 965354 2 INH QID 01/29/2013 09/21/2015 Inactive Effexor XR 37.5 mg capsule,extended release RxNorm: 669760 2 q am and 1 at hs Capsule(s) PO TAKE 2 CAPSULES BY MOUTH EVERY MORNING AND 1 CAPSULE EVERY NIGHT AT BEDTIME 01/29/2013 02/15/2016 Inactive fluconazole 150 mg tablet RxNorm: 149995 1 Tablet(s) PO daily 01/29/2013 02/02/2013 Inactive hydrocodone 5 mg-acetaminophen 500 mg tablet RxNorm: 661027 1 Tablet(s) PO Q6 PRN 01/29/2013 03/20/2013 Inactive Effexor XR 37.5 mg capsule,extended release RxNorm: 612964 Capsule(s) PO 01/29/2013 08/28/2013 Inactive TAKE 2 CAPSULES BY MOUTH EVERY MORNING AND 1 CAPSULE EVERY NIGHT AT BEDTIME doxycycline hyclate 100 mg tablet RxNorm: 266610 1 Tablet(s) PO BID 01/01/2013 01/10/2013 Inactive doxycycline hyclate 100 mg tablet RxNorm: 198599 1 Tablet(s) PO BID 01/01/2013 12/31/2012 Inactive Synthroid 75 mcg tablet RxNorm: 307202 1 Tablet(s) PO daily 06/29/2013 Inactive Synthroid 75 mcg tablet RxNorm: 893708 1 Tablet(s) PO daily 12/31/2012 Inactive Xanax 0.5 mg tablet RxNorm: 166358 Tablet(s) PO TAKE 1/2 TO 1 TABLET BY MOUTH EVERY 8 HOURS NEEDED FOR ANXIETY 12/27/2012 05/06/2013 Inactive (Appended: Controlled substance eRx refill - RxReferenceNumber: [id number]|1|0|1) Lasix 20 mg tablet RxNorm: 783526 1 Tablet(s) PO daily 201202/03/2013 Inactive Santyl 250 unit/gram Topical Ointment RxNorm: 9438134 1 Application TOP daily 12/20/2012 12/29/2012 Inactive Levaquin 500 mg tablet RxNorm: 534517 1 Tablet(s) PO daily 05/201212/26/2012 Inactive acyclovir 400 mg tablet RxNorm: 384483 1 Tablet(s) PO TID 12/0312/09/2012 Inactive acyclovir 400 mg tablet RxNorm: 362074 1 Tablet(s) PO TID 12/0312/02/2012 Inactive fluconazole 150 mg tablet RxNorm: 352033 1 Tablet(s) PO daily 11/26/2012 11/30/2012 Inactive Effexor XR 37.5 mg capsule,extended release RxNorm: 770747 Capsule(s) PO TAKE 2 CAPSULES BY MOUTH EVERY MORNING AND 1 CAPSULE EVERY NIGHT AT BEDTIME 11/14/2012 01/28/2013 Inactive albuterol sulfate 1.25 mg/3 mL solution for nebulization RxNorm: 326014 3 Milliliter(s) INH TID 10/29/20122012 Inactive 1 box Cartia XT 180 mg capsule,extended release RxNorm: 180536 1 Capsule(s) PO daily TAKE 1 CAPSULE BY MOUTH AT BEDTIME ..TAKE THIS IN ADDITION TO 240 MG IN THE MORNING 10/29/2012 11/26/2013 Inactive acyclovir 800 mg tablet RxNorm: 807720 1 Tablet(s) PO BID 10/2911/04/2012 Inactive Diflucan 150 mg tablet RxNorm: 785486 1 Tablet(s) PO daily 10/14/2012 Inactive TAKE 1 TABLET BY MOUTH EVERY DAY Toprol XL 100 mg tablet,extended release RxNorm: 458105 1 Tablet(s) PO BID 10/11/2012 09/05/2013 Inactive Zithromax Z-Babak 250 mg tablet RxNorm: 205652 Tablet(s) PO UD as directed. 1 refill , please take back to back 10/05/2012 No Stop Date Active Kenalog 40 mg/mL Susp for Injection RxNorm: 9935113 1 Milliliter(s) Inj QID 09/21/2012 05/07/2013 Inactive fluconazole 150 mg tablet RxNorm: 191725 1 Tablet(s) PO every other day x 5 doses 09/12/2012 11/25/2012 Inactive levothyroxine 50 mcg tablet RxNorm: 754344 1 Tablet(s) PO daily 09/06/2012 12/31/2012 Inactive atorvastatin 40 mg tablet RxNorm: 460966 1 Tablet(s) PO daily 09/06/2012 08/31/2013 Inactive TAKE 1 TABLET BY MOUTH DAILY (THIS IS AN INCREASE IN DOSAGE) Xanax 0.5 mg tablet RxNorm: 701938 Tablet(s) PO TAKE 1/2 TO 1 TABLET BY MOUTH EVERY 8 HOURS NEEDED FOR ANXIETY 08/27/2012 12/26/2012 Inactive (Appended: Controlled substance eRx refill - RxReferenceNumber: [id number]|1|0|1) Zofran 4 mg tablet RxNorm: 910070 1 Tablet(s) PO Q6 PRN 08/1302/10/2013 Inactive Cipro 500 mg tablet RxNorm: 068997 1 Tablet(s) PO BID 201208/07/2012 Inactive Cipro 500 mg tablet RxNorm: 249289 1 Tablet(s) PO BID 201208/12/2012 Inactive Flagyl 500 mg tablet RxNorm: 880426 1 Tablet(s) PO TID 201208/12/2012 Inactive cefdinir 300 mg capsule RxNorm: 775008 1 Capsule(s) PO BID 08/201207/29/2012 Inactive nystatin 100,000 unit/mL Oral Susp RxNorm: 077950 6 Unit(s) PO QID 07/06/2012 07/15/2012 Inactive Kenalog 40 mg/mL Susp for Injection RxNorm: 4148464 1 Milliliter(s) Inj 07/06/2012 07/06/2012 Inactive Zithromax 500 mg tablet RxNorm: 2228529 1 Tablet(s) PO daily 07/10/2012 Inactive metformin 850 mg tablet RxNorm: 131733 1/2 Tablet(s) PO TID 09/201208/24/2012 Inactive TAKE 1 TABLET BY MOUTH IN THE MORNING, 1/2 TABLET AT NOON, AND 1 TABLET IN THE EVENING Lyrica 50 mg capsule RxNorm: 820431 1 Capsule(s) PO TID 201206/25/2012 Inactive Diflucan 150 mg tablet RxNorm: 126022 1 Tablet(s) PO daily 05/201206/25/2012 Inactive TAKE 1 TABLET BY MOUTH EVERY DAY Levaquin 500 mg tablet RxNorm: 663643 1 Tablet(s) PO daily 06/19/2012 Inactive Pneumovax 23 25 mcg/0.5 mL Injection RxNorm: 025019 1/2 Milliliter(s) Inj 06/07/2012 06/07/2012 Inactive metformin 850 mg tablet RxNorm: 233996 1/2 Tablet(s) PO BID 06/25/2012 Inactive TAKE 1 TABLET BY MOUTH IN THE MORNING, 1/2 TABLET AT NOON, AND 1 TABLET IN THE EVENING cefdinir 300 mg capsule RxNorm: 948596 1 Capsule(s) PO BID 02/201305/30/2012 Inactive cefdinir 300 mg capsule RxNorm: 667085 1 Capsule(s) PO BID 02/201306/06/2012 Inactive prednisone 10 mg tablets in a dose pack RxNorm: 101070 Tablet(s) PO UD 6-5-4-3-2- 1 05/31/2012 05/06/2013 Inactive Cipro 500 mg tablet RxNorm: 166889 1 Tablet(s) PO BID 201206/03/2012 Inactive Xanax 0.5 mg tablet RxNorm: 516929 Tablet(s) PO TAKE 1/2 TO 1 TABLET BY MOUTH EVERY 8 HOURS NEEDED FOR ANXIETY 05/28/2012 08/27/2012 Inactive (Appended: Controlled substance eRx refill - RxReferenceNumber: [id number]|1|0|1) Cartia XT 180 mg capsule,extended release RxNorm: 901399 Capsule(s) PO TAKE 1 CAPSULE BY MOUTH AT BEDTIME ..TAKE THIS IN ADDITION TO 240 MG IN THE MORNING 05/24/2012 10/28/2012 Inactive Diflucan 150 mg tablet RxNorm: 861175 1 Tablet(s) PO daily 06/201205/26/2012 Inactive TAKE 1 TABLET BY MOUTH EVERY DAY Cartia XT 240 mg capsule,extended release RxNorm: 261783 1 Capsule(s) PO QAM 05/23/2012 09/06/2012 Inactive in addition to 180mg q pm omeprazole 20 mg capsule,delayed release RxNorm: 403579 Capsule(s) PO TAKE 1 CAPSULE BY MOUTH TWICE DAILY 05/21/2012 Inactive diltiazem ER (XR/XT) 240 mg capsule,extended release, controlled RxNorm: 794469 1 Capsule(s) PO daily TAKE ONE CAPSULE BY MOUTH EVERY DAY 05/21/2012 05/30/2013 Inactive Toprol XL 25 mg tablet,extended release RxNorm: 164626 1 Tablet(s) PO QPM take with 50mg (1/2 tab of 100mg) each evening. Continue 100mg in the morning. 05/17/2012 05/27/2012 Inactive Activella 0.5 mg-0.1 mg tablet RxNorm: 4805016 Tablet(s) PO TAKE 1 TABLET BY MOUTH DAILY FOR MENOPAUSAL SYMPTOM 05/09/2012 05/16/2013 Inactive colestipol 1 gram tablet RxNorm: 2849313 Tablet(s) PO TAKE 1 TABLET BY MOUTH TWICE DAILY 05/08/2012 04/21/2016 Inactive Kenalog 40 mg/mL Susp for Injection RxNorm: 4380258 1 Milliliter(s) Inj 05/02/2012 05/02/2012 Inactive Xanax 0.5 mg tablet RxNorm: 530356 Tablet(s) PO 04/16/2012 05/28/2012 Inactive TAKE 1/2 TO 1 TABLET BY MOUTH EVERY 8 HOURS NEEDED FOR ANXIETY (Appended: Controlled substance eRx refill - RxReferenceNumber: [id number]|1|0|1) Diflucan 150 mg tablet RxNorm: 781354 1 Tablet(s) PO daily 05/22/2012 Inactive TAKE 1 TABLET BY MOUTH EVERY DAY Cipro 500 mg tablet RxNorm: 658455 1 Tablet(s) PO BID 201104/19/2012 Inactive Zithromax Z-Babak 250 mg tablet RxNorm: 989507 Tablet(s) PO UD 05/30/2012 Inactive metformin 850 mg tablet RxNorm: 162108 Tablet(s) PO take one pill by mouth in AM, 1/2 at noon, and 1 pill in the evening. 03/16/2012 06/06/2012 Inactive TAKE 1 TABLET BY MOUTH IN THE MORNING, 1/2 TABLET AT NOON, AND 1 TABLET IN THE EVENING Xanax 0.5 mg tablet RxNorm: 270969 Tablet(s) PO 03/05/2012 04/15/2012 Inactive TAKE 1/2 TO 1 TABLET BY MOUTH EVERY 8 HOURS NEEDED FOR ANXIETY (Appended: Controlled substance eRx refill - RxReferenceNumber: [id number]|1|0|1) potassium chloride ER 10 mEq tablet,extended release RxNorm: 626347 1 Tablet(s) PO QDAY PRN take with lasix 03/05/201204/2013 Inactive potassium chloride ER 10 mEq tablet,extended release RxNorm: 436596 1 Tablet(s) PO QDAY PRN take with lasix 02/28/2012 Inactive Lasix 20 mg tablet RxNorm: 870112 Tablet(s) PO QDAY PRN 02/2708/25/2012 Inactive doxycycline hyclate 100 mg capsule RxNorm: 646036 1 Capsule(s) PO BID 02/27/2012 03/04/2012 Inactive Effexor XR 37.5 mg capsule,extended release RxNorm: 335721 Capsule(s) PO 02/26/2012 01/28/2013 Inactive TAKE 2 CAPSULES BY MOUTH EVERY MORNING AND 1 CAPSULE EVERY NIGHT AT BEDTIME Lomotil 2.5 mg-0.025 mg tablet RxNorm: 3792792 Tablet(s) PO 07/201103/05/2012 Inactive 1 after each loose bm limit 4 per day doxycycline hyclate 100 mg capsule RxNorm: 958648 1 Capsule(s) PO BID 02/15/2012 02/21/2012 Inactive Diflucan 150 mg tablet RxNorm: 121675 Tablet(s) PO daily 201102/21/2012 Inactive TAKE 1 TABLET BY MOUTH EVERY DAY colestipol,micronized 1 gram tablet RxNorm: 6618181 Tablet(s) PO 02/06/2012 04/21/2016 Inactive TAKE 1 TABLET BY MOUTH TWICE DAILY Effexor XR 37.5 mg capsule,extended release RxNorm: 093137 Capsule(s) PO 02/06/2012 02/16/2016 Inactive TAKE 2 CAPSULES BY MOUTH EVERY MORNING AND 1 CAPSULE EVERY NIGHT AT BEDTIME potassium chloride ER 10 mEq tablet,extended release RxNorm: 429893 1 Tablet(s) PO QDAY PRN take with lasix 02/01/201212/2011 Inactive Levaquin 500 mg tablet RxNorm: 962807 1 Tablet(s) PO daily 04/201202/07/2012 Inactive Diflucan 150 mg tablet RxNorm: 829993 Tablet(s) PO 01/27/2012 02/14/2012 Inactive TAKE 1 TABLET BY MOUTH EVERY DAY Effexor XR 37.5 mg capsule,extended release RxNorm: 368983 Capsule(s) PO 01/05/2012 02/05/2012 Inactive TAKE 2 CAPSULES BY MOUTH EVERY MORNING , AND 1 CAPSULE BY MOUTH EVERY NIGHT AT BEDTIME Effexor XR 37.5 mg capsule,extended release RxNorm: 899791 Capsule(s) PO 12/29/2011 01/04/2012 Inactive TAKE 2 CAPSULES BY MOUTH EVERY MORNING , AND 1 CAPSULE BY MOUTH EVERY NIGHT AT BEDTIME Diflucan 150 mg tablet RxNorm: 839818 Tablet(s) PO 12/29/2011 04/09/2012 Inactive TAKE 1 TABLET BY MOUTH EVERY DAY Cipro 500 mg tablet RxNorm: 637619 1 Tablet(s) PO BID 201101/07/2012 Inactive Toprol XL 100 mg tablet,extended release RxNorm: 005620 Tablet(s) PO as doctor directed one tab in am and 1/2 at night 11/30/2011 10/10/2012 Inactive Phenergan 25 mg/mL Injection RxNorm: 808406 Milliliter(s) Inj 11/30/2011 11/30/2011 Inactive Toprol XL 100 mg 24 hr Tab RxNorm: 631167 1.5 Tablet(s) PO as doctor directed one tab in am and 1/2 at night 11/17/201102/2012 Inactive Xopenex HFA 45 mcg/actuation Aerosol Inhaler RxNorm: 700784 2 INH QID 11/08/2011 12/01/2012 Inactive Effexor XR 150 mg 24 hr Cap RxNorm: 920868 1 Capsule(s) PO daily 10/24/2011 01/04/2012 Inactive Xanax 0.5 mg tablet RxNorm: 877765 1/2-1 Tablet(s) PO Q8 PRN 10/20/2011 03/05/2012 Inactive levothyroxine 25 mcg tablet RxNorm: 778907 Tablet(s) PO 201109/05/2012 Inactive TAKE 1 TABLET BY MOUTH DAILY Xanax 0.5 mg Tab RxNorm: 925170 1/2-1 Tablet(s) PO Q8 PRN 09/26/2011 10/19/2011 Inactive potassium chloride ER 10 mEq Tab RxNorm: 586314 1 Tablet(s) PO daily 09/20/2011 09/24/2011 Inactive Lasix 20 mg Tab RxNorm : 026363 1 Tablet(s) PO daily 09/20/2011 09/24/2011 Inactive Xanax 0.5 mg Tab RxNorm: 747308 1/2-1 Tablet(s) PO Q8 PRN 09/12/2011 09/25/2011 Inactive Xanax 0.5 mg Tab RxNorm: 575325 1/2-1 Tablet(s) PO Q8 PRN 08/24/2011 09/11/2011 Inactive Lipitor 20 mg tablet RxNorm: 064250 Tablet(s) PO 08/22/2011 09/05/2012 Inactive TAKE 1 TABLET BY MOUTH DAILY (THIS IS AN INCREASE IN DOSAGE) Cipro 500 mg Tab RxNorm: 697852 1 Tablet(s) PO BID 201110/24/2011 Inactive Flagyl 500 mg Tab RxNorm: 146795 1 Tablet(s) PO TID 201110/24/2011 Inactive Diflucan 150 mg Tab RxNorm: 650308 1 Tablet(s) PO daily 201110/24/2011 Inactive Kenalog 40 mg/mL Susp for Injection RxNorm: 4416383 1 Milliliter(s) Inj 08/01/2011 10/24/2011 Inactive FreeStyle Lancets RxNorm: 1 test Miscellaneous TID 201107/08/2014 Inactive dispense quantity sufficient for three times daily testing for diabetes FreeStyle Test Strips RxNorm: 1 Miscellaneous BID 07/21/2011 08/13/2012 Inactive please give lancets alsodx 250.02 Xanax 0.25 mg Tab RxNorm: 664144 1 Tablet(s) PO Q8 PRN 07/06 No Stop Date Active colestipol 1 gram Tab RxNorm: 8081548 Tablet(s) PO 07/04/2011 04/21/2016 Inactive TAKE 1 TABLET BY MOUTH TWICE DAILY DIRECTED colestipol 1 gram tablet RxNorm: 1330559 1 Tablet(s) PO BID 07/03/2011 Inactive Cartia XT 180 mg capsule,extended release RxNorm: 613873 1 Capsule(s) PO QHS 06/30/2011 11/16/2011 Inactive in addition to 240mg q am venlafaxine 37.5 mg Tab RxNorm: 183971 1 Tablet(s) PO BID 06/2406/29/2011 Inactive prednisone 5 mg Tab RxNorm: 821017 Tablet(s) PO UD 2011 10/24/2011 Inactive six day taper #21 Lyrica 50 mg capsule RxNorm: 324771 1 Capsule(s) PO TID 201108/18/2011 Inactive Diflucan 150 mg tablet RxNorm: 903882 1 Tablet(s) PO daily 06/24/2011 Inactive levofloxacin 500 mg Tab RxNorm: 921918 1 Tablet(s) PO daily 08/15/2011 Inactive azithromycin 250 mg Tab RxNorm: 839232 PO 05/23/2011 06/20/2011 Inactive omeprazole 20 mg capsule,delayed release RxNorm: 054165 Capsule(s) PO 05/10/2011 05/20/2012 Inactive TAKE 1 CAPSULE BY MOUTH TWICE DAILY;Patient requests 90 day supply diltiazem ER (XR/XT) 240 mg capsule,extended release, controlled RxNorm: 320112 Capsule(s) PO 04/19/2011 05/21/2012 Inactive TAKE 1 CAPSULE BY MOUTH EVERY MORNING;Patient requests 90 day supply Kenalog 40 mg/mL Susp for Injection RxNorm: 7629733 1 Milliliter(s) Inj 04/18/2011 06/20/2011 Inactive clindamycin 300 mg Cap RxNorm: 109448 1 Capsule(s) PO BID 04/1806/20/2011 Inactive lisinopril-hydrochlorothiazide 20 mg-12.5 mg Tab RxNorm: 974345 2 Tablet(s) PO daily 04/18/2011 10/24/2011 Inactive fluconazole 150 mg Tab RxNorm: 854176 1 Tablet(s) PO daily 07/201006/20/2011 Inactive Activella 0.5 mg-0.1 mg tablet RxNorm: 8289088 Tablet(s) PO 05/201005/08/2012 Inactive TAKE 1 TABLET BY MOUTH DAILY FOR MENOPAUSAL SYMPTOM diltiazem ER (XR/XT) 240 mg Continuous Release Cap RxNorm: 889749 1 Capsule(s) PO daily 03/17/2011 03/16/2011 Inactive diltiazem ER (XR/XT) 240 mg Continuous Release Cap RxNorm: 447865 Capsule(s) PO 03/17/2011 06/20/2011 Inactive TAKE 1 CAPSULE BY MOUTH EVERY MORNING metformin 850 mg tablet RxNorm: 794260 1 Tablet(s) PO as doctor directed take one pill by mouth in AM, 1/2 at noon, and 1 pill in the evening. 01/21/2011 04/20/2011 Inactive Xopenex 1.25 mg/3 mL solution for nebulization RxNorm: 781564 3 Milliliter(s) INH Q6 PRN No Start Date Active Novolog Flexpen U-100 Insulin aspart 100 unit/mL subcutaneous RxNorm: 2133547 10 units with meals plus SSI in [...] 301-325 Lomotil 2.5 mg-0.025 mg tablet RxNorm: 2665235 Tablet(s) PO No Start Date 02/21/2012 Inactive 1 after each loose bm limit 4 per day Novolog Flexpen U-100 Insulin aspart 100 unit/mL subcutaneous RxNorm: 6365156 10 Unit(s) SQ AC No Start Date 10/26 Inactive with sliding scale-Dr Yanna Judd FlexTouch U-100 100 unit/mL (3 mL) subcutaneous insulin pen RxNorm: 3418557 40 Unit(s) SQ daily No Start Date Inactive gabapentin 600 mg tablet RxNorm: 672023 1 Tablet(s) PO TID No Start Date 06/26/2013 Inactive Effexor XR 37.5 mg capsule,extended release RxNorm: 792199 1 Capsule(s) PO BID No Start Date 10/23/2011 Inactive Levemir FlexTouch 100 unit/mL (3 mL) subcutaneous insulin pen RxNorm: 790991 50 Unit(s) SQ BID No Start Date 04/24/2017 Inactive Combivent Respimat 20 mcg-100 mcg/actuation solution for inhalation RxNorm: 0464367 1 INH QID No Start Date 05/11/2014 Inactive Xanax 0.5 mg Tab RxNorm: 693187 1/2-1 Tablet(s) PO Q8 PRN No Start Date 08/23/2011 Inactive Xopenex HFA 45 mcg/actuation Aerosol Inhaler RxNorm: 134626 2 INH QID No Start Date 11/07/2011 Inactive promethazine 25 mg tablet RxNorm: 035216 1 Tablet(s) PO Q8 as needed No Start Date 08/12/2015 Inactive colestipol 1 gram Tab RxNorm: 8436290 1 Tablet(s) PO BID No Start Date 07/03/2011 Inactive Cartia XT 240 mg capsule,extended release RxNorm: 388644 1 Capsule(s) PO QAM No Start Date 05/22/2012 Inactive in addition to 180mg q pm Lipitor 20 mg Tab RxNorm: 933137 1 Tablet(s) PO daily No Start Date 08/21/2011 Inactive FreeStyle Test Strips RxNorm: 1 Miscellaneous BID No Start Date 07/20/2011 Inactive Jerry Marley U-300 Insulin 300 unit/mL (1.5 mL) subcutaneous pen RxNorm: 6324352 40 Unit(s) SQ BID No Start Date 10/26/2017 Inactive Diflucan 150 mg tablet RxNorm: 988000 1 Tablet(s) PO daily 1 pill po every other day x 8 doses No Start Date 03/18/2013 Inactive hydrocodone 5 mg-acetaminophen 500 mg tablet RxNorm: 422631 1 Tablet(s) PO Q6 PRN No Start Date 01/28/2013 Inactive Lasix 20 mg tablet RxNorm: 516243 Tablet(s) PO QDAY PRN No Start Date 02/27/2012 Inactive Promethazine VC 6.25 mg-5 mg/5 mL Syrup RxNorm: 9112184 1-2 PO Q6 PRN No Start Date 10/07/2013 Inactive promethazine 25 mg tablet RxNorm: 845538 1 Tablet(s) PO Q6 PRN No Start Date 02/09/2017 Inactive digoxin 125 mcg tablet RxNorm: 858465 1 Tablet(s) PO daily No Start Date 06/20/2017 Inactive Xanax 0.25 mg Tab RxNorm: 788955 1 Tablet(s) PO Q8 PRN No Start Date 07/05/2011 Inactive Diflucan 150 mg tablet RxNorm: 683562 1 Tablet(s) PO every other day x 4 doses No Start Date 04/09/2014 Inactive Carafate 100 mg/mL Oral Susp RxNorm: 882686 2 Teaspoon(s) PO daily No Start Date 10/24/2011 Inactive prednisone 5 mg Tab RxNorm: 014502 Tablet(s) PO UD No Start Date 06/22/2011 Inactive six day taper #21 Tessalon Perles 100 mg capsule RxNorm: 980294 2 Capsule(s) PO TID as needed No Start Date 05/16/2017 Inactive Bactroban 2 % topical ointment RxNorm: 093206 1 Application TOP BID No Start Date 09/26/2013 Inactive Phenergan 25 mg tablet RxNorm: 885619 1 Tablet(s) PO Q8 as needed nausea No Start Date 06/28/2015 Inactive flecainide 50 mg tablet RxNorm: 542858 1 Tablet(s) PO BID No Start Date 02/01/2016 Inactive Activella 0.5 mg-0.1 mg Tab RxNorm: 0103016 1 Tablet(s) PO daily No Start Date 03/21/2011 Inactive hydrocodone 10 mg-acetaminophen 325 mg tablet RxNorm: 794406 1 Tablet(s) PO Q6 as needed No Start Date 02/04/2016 Inactive lisinopril 20 mg Tab RxNorm: 543696 1 Tablet(s) PO daily No Start Date 06/20/2011 Inactive prednisone 10 mg tablets in a dose pack RxNorm: 429332 Tablet(s) PO UD 6-5-4-3-2- 1 No Start Date 05/30/2012 Inactive hydrocodone 7.5 mg-acetaminophen 325 mg tablet RxNorm: 635940 1 Tablet(s) PO Q6 PRN No Start Date 10/06/2013 Inactive hyoscyamine 0.125 mg sublingual tablet RxNorm: 4762972 1 Tablet(s) SL TID as needed No Start Date 05/16/2017 Inactive Cartia XT 180 mg 24 hr Cap RxNorm: 268491 1 Capsule(s) PO QHS No Start Date 06/29/2011 Inactive in addition to 240mg q am Zofran 4 mg tablet RxNorm: 678234 1 Tablet(s) PO Q6 PRN No Start Date 08/12/2012 Inactive omeprazole 20 mg Cap, Delayed Release RxNorm: 034863 1 Capsule(s) PO BID No Start Date 05/09/2011 Inactive venlafaxine 37.5 mg Tab RxNorm: 636213 1 Tablet(s) PO BID No Start Date 10/24/2011 Inactive Vesicare 10 mg tablet RxNorm: 467118 1 Tablet(s) PO daily No Start Date 09/28/2015 Inactive levothyroxine 25 mcg Tab RxNorm: 095857 1 Tablet(s) PO daily No Start Date 10/18/2011 Inactive Zithromax Z-Babak 250 mg tablet RxNorm: 330292 Tablet(s) PO UD No Start Date 04/01/2012 Inactive Januvia 100 mg tablet RxNorm: 908953 1 Tablet(s) PO daily No Start Date 05/22/2013 Inactive Lantus Solostar 100 unit/mL (3 mL) subcutaneous insulin pen RxNorm: 085160 Unit( s) SQ No Start Date 04/17/2017 Inactive 10 units q am and 50units at night fluconazole 150 mg tablet RxNorm: 570197 1 Tablet(s) PO every other day x 5 doses No Start Date 09/11/2012 Inactive Toprol XL 25 mg 24 hr Tab RxNorm: 285905 1 Tablet(s) PO daily No Start Date 11/16/2011 Inactive Medication Administered Medication Codes Instructions Start Date Status Kenalog 40 mg/mL suspension for injection RxNorm: 5825501 Milliliter 06/26/2015 No longer Active Kenalog 40 mg/mL suspension for injection RxNorm: 9418307 Milliliter 05/07/2013 No longer Active Kenalog 40 mg/mL Susp for Injection RxNorm: 2691813 1Milliliter 07/06/2012 No longer Active Pneumovax 23 25 mcg/0.5 mL Injection RxNorm: 114404 1/2Milliliter 06/07/2012 No longer Active Kenalog 40 mg/mL Susp for Injection RxNorm: 6998963 1Milliliter 05/02/2012 No longer Active Phenergan 25 mg/mL Injection RxNorm: 793832 Milliliter 11/30/2011 No longer Active Immunizations Vaccine [...] Blister of right foot ICD-9: 917.2 2013 BACKACHE ICD-9: 724.5 06/27/2013 Muscle spasms of neck ICD-9: 728.85 06/27 WHEEZING ICD-9: 786.07 06/10/2013 OBESITY ICD-9: 278.00 06/10/2013 SACROILIITIS NEC ICD-9: 720.2 05/07/2013 ACUTE BRONCHITIS ICD-9: 466.0 05/07/2013 COPD (chronic obstructive pulmonary disease) with acute bronchitis ICD-9: 491.22 04/16/2013 Abdominal pain ICD-9: 789.00 02/12/2013 RESPIRATORY ABNORM NEC ICD-9: 786.09 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 2012 Callus ICD-9: 700 12/31/2012 Diarrhea ICD-9: 787.91 08/23/2012 Gastroenteritis ICD-9: 558.9 08/13/2012 Thrush ICD-9: 112.0 07/06/2012 Acute sinusitis ICD-9: 461.9 07/06/2012 VAC STREP PNEUMONIAE-FLU ICD-9: V06.6 Labial [...] 18.7 % 02/20/2018 Cbc With Differential Ord2 MCH 26.2 pg 02/20/2018 Cbc With Differential Ord2 [place]% 5.7 % 02/20/2018 Cbc With Differential Ord2 [...] 1.61 K/ul 02/20/2018 Cbc With Differential Ord2 [place] ABS# 0.5 K/ul 02/20/2018 Cbc With Differential Ord2 Eos ABS# 0.1 K/ul 02/20/2018 Cbc With Differential Ord2 Baso ABS# 0.0 K/ul 02/20/2018 Comp Metabolic Gbq395 NA 134 mEq/L 02/20/2018 Comp Metabolic Tuq216 K 3.9 mEq/L 02/20/2018 Comp Metabolic Xud753 CL 90 mEq/L 02/20/2018 Comp Metabolic Bsi438 CO2 32.0 mEq/L 02/20/2018 Comp Metabolic Lwv065 ANION GAP 16 02/20/2018 Comp Metabolic Pns367 GLUCOSE 287 mg/dL 02/20/2018 Comp Metabolic Ews196 Creat 0.8 mg/dL 02/20/2018 Comp Metabolic Xyd360 eGFR 72 ml/min/1.73m2 02/20/2018 Comp Metabolic Xwv073 BUN 13 mg/dL 02/20/2018 Comp Metabolic Adi855 B/C Ratio 15.5 Ratio 02/20/2018 Comp Metabolic Xdo370 CALCIUM 9.0 mg/dL 02/20/2018 Comp Metabolic Dyx157 ALK PHOS 120 U/L 02/20/2018 Comp Metabolic Epn569 AST(SGOT) 21 U/L 02/20/2018 Comp Metabolic Ovh075 ALT(SGPT) 17 U/L 02/20/2018 Comp Metabolic Syd978 BILI T 0.4 mg/dL 02/20/2018 Comp Metabolic Lnl489 ALBUMIN 3.8 g/dL 02/20/2018 Comp Metabolic Cda925 TPRO 6.9 g/dL 02/20/2018 Comp Metabolic Eui959 GLOB 3.1 g/dL 02/20/2018 Comp Metabolic Jft774 A/G Ratio 1.3 Ratio 02/20/2018 Comp Metabolic Mvs100 Osmo 279 mOsmo 02/20/2018 Vitamin D 25 Oh Hvr9173 VITAMIN D, 25 HYDROXY 26.48 ng/mL Digoxin Ord9 DIGOXIN 0.7 NG/ML 02/20/2018 Culture Urine [id number] URINE CULTURE SEE NOTES 12/01/2017 Urine Culture Ucult Complete >100,000 col/ml aerobic growth sent to ref lab 11/29/2017 Comp Metabolic Xep013 NA 135 mEq/L 08/21/2017 Comp Metabolic Igc533 K 4.6 mEq/L 08/21/2017 Comp Metabolic Oiz046 CL 92 mEq/L 08/21/2017 Comp Metabolic Fja148 CO2 32.0 mEq/L 08/21/2017 Comp Metabolic Aqv299 ANION GAP 16 08/21/2017 Comp Metabolic Dqw710 GLUCOSE 298 mg/dL 08/21/2017 Comp Metabolic Fwg663 Creat 1.1 mg/dL 08/21/2017 Comp Metabolic Wsq433 eGFR 54 ml/min/1.73m2 08/21/2017 Comp Metabolic Wef322 BUN 22 mg/dL 08/21/2017 Comp Metabolic Vvr735 B/C Ratio 20.6 Ratio 08/21/2017 Comp Metabolic Zsx335 CALCIUM 9.3 mg/dL 08/21/2017 Comp Metabolic Jex681 ALK PHOS 145 U/L 08/21/2017 Comp Metabolic Zpa776 AST(SGOT) 31 U/L 08/21/2017 Comp Metabolic Zyl970 ALT(SGPT) 19 U/L 08/21/2017 Comp Metabolic Scu792 BILI T 0.3 mg/dL 08/21/2017 Comp Metabolic Ogn061 ALBUMIN 3.8 g/dL 08/21/2017 Comp Metabolic Ogy986 TPRO 7.1 g/dL 08/21/2017 Comp Metabolic Dtg684 GLOB 3.3 g/dL 08/21/2017 Comp Metabolic Fbh658 A/G Ratio 1.2 Ratio 08/21/2017 Comp Metabolic Fpc913 Osmo 285 mOsmo 08/21/2017 Cbc With Differential [...] 27.9 pg 08/18/2017 Cbc With Differential Ord2 [place]% 6.9 % 08/18/2017 Cbc With Differential Ord2 [...] 2.05 K/ul 08/18/2017 Cbc With Differential Ord2 [place] ABS# 0.7 K/ul 08/18/2017 Cbc With Differential Ord2 Eos ABS# 0.3 K/ul 08/18/2017 Cbc With Differential Ord2 Baso ABS# 0.0 K/ul 08/18/2017 %Hba1C Jxq836 % HbA1c 27222-4 11.5 % 06/13/2017 %Hba1C Wmv607 Gluc Ave 283 mg/dL 06/13/2017 Cbc With [...] 20.0 % 03/27/2017 Cbc With Differential Ord2 [place]% 7.2 % 03/27/2017 Cbc With Differential Ord2 [...] 2.11 K/ul 03/27/2017 Cbc With Differential Ord2 [place] ABS# 0.8 K/ul 03/27/2017 Cbc With Differential Ord2 Eos ABS# 0.2 K/ul 03/27/2017 Cbc With Differential Ord2 Baso ABS# 0.0 K/ul 03/27/2017 Digoxin Ord9 DIGOXIN 0.5 NG/ML 03/27/2017 Comp Metabolic Vvv996 NA 136 mEq/L 03/27/2017 Comp Metabolic Lsg417 K 4.1 mEq/L 03/27/2017 Comp Metabolic Pnd034 CL 90 mEq/L 03/27/2017 Comp Metabolic Vpn267 CO2 34.0 mEq/L 03/27/2017 Comp Metabolic Mxh352 ANION GAP 16 03/27/2017 Comp Metabolic Gce558 GLUCOSE 325 mg/dL 03/27/2017 Comp Metabolic Tdu076 Creat 1.0 mg/dL 03/27/2017 Comp Metabolic Rzv815 eGFR 62 ml/min/1.73m2 03/27/2017 Comp Metabolic Yta698 BUN 15 mg/dL 03/27/2017 Comp Metabolic Ngj629 B/C Ratio 15.8 Ratio 03/27/2017 Comp Metabolic Itz749 CALCIUM 9.5 mg/dL 03/27/2017 Comp Metabolic Mju634 ALK PHOS 159 U/L 03/27/2017 Comp Metabolic Ots763 AST(SGOT) 57 U/L 03/27/2017 Comp Metabolic Oms029 ALT(SGPT) 32 U/L 03/27/2017 Comp Metabolic Osx634 BILI T 0.4 mg/dL 03/27/2017 Comp Metabolic Iob341 ALBUMIN 4.3 g/dL 03/27/2017 Comp Metabolic Tvm081 TPRO 7.3 g/dL 03/27/2017 Comp Metabolic Fyy500 GLOB 3.0 g/dL 03/27/2017 Comp Metabolic Vmo618 A/G Ratio 1.4 Ratio 03/27/2017 Comp Metabolic Rqc107 Osmo 285 mOsmo 03/27/2017 Magnesium Ord90 Mag 2.4 mg/dL 02/27/2017 Comp Metabolic Ich650 NA 138 mEq/L 02/27/2017 Comp Metabolic Kjl936 K 4.2 mEq/L 02/27/2017 Comp Metabolic Dbl899 CL 91 mEq/L 02/27/2017 Comp Metabolic Axm840 CO2 36.0 mEq/L 02/27/2017 Comp Metabolic Lll252 ANION GAP 15 02/27/2017 Comp Metabolic Buf367 GLUCOSE 297 mg/dL 02/27/2017 Comp Metabolic Hhg327 Creat 0.9 mg/dL 02/27/2017 Comp Metabolic Quq047 eGFR 71 ml/min/1.73m2 02/27/2017 Comp Metabolic Bdd022 BUN 12 mg/dL 02/27/2017 Comp Metabolic Dna885 B/C Ratio 14.1 Ratio 02/27/2017 Comp Metabolic Jjb745 CALCIUM 9.0 mg/dL 02/27/2017 Comp Metabolic Qvd692 ALK PHOS 146 U/L 02/27/2017 Comp Metabolic Tuw107 AST(SGOT) 28 U/L 02/27/2017 Comp Metabolic Toj579 ALT(SGPT) 12 U/L 02/27/2017 Comp Metabolic Efu761 BILI T 0.3 mg/dL 02/27/2017 Comp Metabolic Wmd788 ALBUMIN 3.8 g/dL 02/27/2017 Comp Metabolic Bxg054 TPRO 6.6 g/dL 02/27/2017 Comp Metabolic Kpm996 GLOB 2.8 g/dL 02/27/2017 Comp Metabolic Qag326 A/G Ratio 1.3 Ratio 02/27/2017 Comp Metabolic Pot660 Osmo 286 mOsmo 02/27/2017 Digoxin Ord9 DIGOXIN <0.2 NG/ML 02/14/2017 Comp Metabolic Erw605 NA 138 mEq/L 02/14/2017 Comp Metabolic Ecw157 K 3.5 mEq/L 02/14/2017 Comp Metabolic Itm217 CL 95 mEq/L 02/14/2017 Comp Metabolic Ymv745 CO2 29.0 mEq/L 02/14/2017 Comp Metabolic Mfl573 ANION GAP 18 02/14/2017 Comp Metabolic Xyj880 GLUCOSE 254 mg/dL 02/14/2017 Comp Metabolic Zxb753 Creat 1.0 mg/dL 02/14/2017 Comp Metabolic Tnc329 eGFR 62 ml/min/1.73m2 02/14/2017 Comp Metabolic Wdt772 BUN 14 mg/dL 02/14/2017 Comp Metabolic Mpe081 B/C Ratio 14.6 Ratio 02/14/2017 Comp Metabolic Hcl580 CALCIUM 8.6 mg/dL 02/14/2017 Comp Metabolic Qfi416 ALK PHOS 155 U/L 02/14/2017 Comp Metabolic Bee220 AST(SGOT) 42 U/L 02/14/2017 Comp Metabolic Hqn320 ALT(SGPT) 28 U/L 02/14/2017 Comp Metabolic Qhx046 BILI T 0.3 mg/dL 02/14/2017 Comp Metabolic Myn998 ALBUMIN 3.6 g/dL 02/14/2017 Comp Metabolic Eqe680 TPRO 6.2 g/dL 02/14/2017 Comp Metabolic Ykl738 GLOB 2.6 g/dL 02/14/2017 Comp Metabolic Csz899 A/G Ratio 1.4 Ratio 02/14/2017 Comp Metabolic Xfa247 Osmo 285 mOsmo 02/14/2017 Vitamin D 25 Oh Riw5342 VITAMIN D, 25 HYDROXY 8.99 ng/mL Tsh [...] 28.0 pg 01/16/2017 Cbc With Differential Ord2 [place]% 7.3 % 01/16/2017 Cbc With Differential Ord2 [...] 1.42 K/ul 01/16/2017 Cbc With Differential Ord2 [place] ABS# 0.6 K/ul 01/16/2017 Cbc With Differential Ord2 Eos ABS# 0.1 K/ul 01/16/2017 Cbc With Differential Ord2 Baso ABS# 0.0 K/ul 01/16/2017 Sed Rate Ord21 ESR 33 mm/hr 01/16/2017 C-Reactive Protein Qnt Crqnt CRP 3.3 mg/dl 01/16/2017 Free T4 Ehy177 FREE T4 0.81 ng/dL 01/16/2017 %Hba1C Gtt740 % HbA1c 09979-9 12.4 % 01/16/2017 %Hba1C Kmm385 Gluc Ave 309 mg/dL 01/16/2017 Comp Metabolic Dqy241 NA 134 mEq/L 01/16/2017 Comp Metabolic Yjz307 K 4.0 mEq/L 01/16/2017 Comp Metabolic Eaf526 CL 89 mEq/L 01/16/2017 Comp Metabolic Jjn991 CO2 30.0 mEq/L 01/16/2017 Comp Metabolic Cqh793 ANION GAP 19 01/16/2017 Comp Metabolic Nra011 GLUCOSE 496 Result Verified By Repeat Analysis mg/dL 01/16/2017 Comp Metabolic Enh462 Creat 0.8 mg/dL 01/16/2017 Comp Metabolic Gwi557 eGFR 73 ml/min/1.73m2 01/16/2017 Comp Metabolic Vun971 BUN 13 mg/dL 01/16/2017 Comp Metabolic Pmh099 B/C Ratio 15.7 Ratio 01/16/2017 Comp Metabolic Spt041 CALCIUM 8.8 mg/dL 01/16/2017 Comp Metabolic Xhf803 ALK PHOS 171 U/L 01/16/2017 Comp Metabolic Zim386 AST(SGOT) 54 U/L 01/16/2017 Comp Metabolic Txq284 ALT(SGPT) 32 U/L 01/16/2017 Comp Metabolic Aga233 BILI T 0.3 mg/dL 01/16/2017 Comp Metabolic Nuh047 ALBUMIN 3.9 g/dL 01/16/2017 Comp Metabolic Lim803 TPRO 6.5 g/dL 01/16/2017 Comp Metabolic Fsn748 GLOB 2.6 g/dL 01/16/2017 Comp Metabolic Met846 A/G Ratio 1.5 Ratio 01/16/2017 Comp Metabolic Zcp744 Osmo 290 mOsmo 01/16/2017 Comp Metabolic Qee726 NA 135 mEq/L 09/14/2016 Comp Metabolic Vug598 K 5.2 mEq/L 09/14/2016 Comp Metabolic Eut878 CL 93 mEq/L 09/14/2016 Comp Metabolic Gpt466 CO2 26.0 mEq/L 09/14/2016 Comp Metabolic Stj433 ANION GAP 21 09/14/2016 Comp Metabolic Zrs097 GLUCOSE 326 mg/dL 09/14/2016 Comp Metabolic Ivo455 Creat 1.0 mg/dL 09/14/2016 Comp Metabolic Dxd949 eGFR 57 ml/min/1.73m2 09/14/2016 Comp Metabolic Xts416 BUN 16 mg/dL 09/14/2016 Comp Metabolic Ugu998 B/C Ratio 15.5 Ratio 09/14/2016 Comp Metabolic Vdt019 CALCIUM 9.2 mg/dL 09/14/2016 Comp Metabolic Qiy685 ALK PHOS 160 U/L 09/14/2016 Comp Metabolic Nnm749 AST(SGOT) 49 U/L 09/14/2016 Comp Metabolic Hbu165 ALT(SGPT) 32 U/L 09/14/2016 Comp Metabolic Dba516 BILI T 0.4 mg/dL 09/14/2016 Comp Metabolic Vwc039 ALBUMIN 4.0 g/dL 09/14/2016 Comp Metabolic Rit630 TPRO 7.3 g/dL 09/14/2016 Comp Metabolic Jlm965 GLOB 3.3 g/dL 09/14/2016 Comp Metabolic Yjd049 A/G Ratio 1.2 Ratio 09/14/2016 Comp Metabolic Lbe540 Osmo 284 mOsmo 09/14/2016 Cbc With Differential [...] 28.2 pg 09/14/2016 Cbc With Differential Ord2 [place]% 6.2 % 09/14/2016 Cbc With Differential Ord2 [...] 2.09 K/ul 09/14/2016 Cbc With Differential Ord2 [place] ABS# 0.7 K/ul 09/14/2016 Cbc With Differential Ord2 Eos ABS# 0.2 K/ul 09/14/2016 Cbc With Differential Ord2 Baso ABS# 0.3 K/ul 09/14/2016 %Hba1C Tya965 % HbA1c 92398-0 10.7 % 09/14/2016 %Hba1C Nla295 Gluc Ave 260 mg/dL 09/14/2016 Manual Differential Ord52 D-Neutr 62 % 09/14/2016 Manual Differential Ord52 D-[place] 1 % 09/14/2016 Manual Differential Ord52 D-Lymph 34 % 09/14/2016 Manual Differential Ord52 D-Eos 2 % 09/14/2016 Manual Differential Ord52 D-[place] 1 % 09/14/2016 Comp Metabolic Pep795 NA 134 mEq/L 08/10/2016 Comp Metabolic Tcp123 K 5.0 mEq/L 08/10/2016 Comp Metabolic Cuv754 CL 91 mEq/L 08/10/2016 Comp Metabolic Amo741 CO2 29.0 mEq/L 08/10/2016 Comp Metabolic Ljt883 ANION GAP 19 08/10/2016 Comp Metabolic Rbl844 GLUCOSE 291 mg/dL 08/10/2016 Comp Metabolic Fxe850 Creat 0.9 mg/dL 08/10/2016 Comp Metabolic Xmz648 eGFR 68 ml/min/1.73m2 08/10/2016 Comp Metabolic Ceu694 BUN 20 mg/dL 08/10/2016 Comp Metabolic Vgb855 B/C Ratio 22.7 Ratio 08/10/2016 Comp Metabolic Rzj072 CALCIUM 9.7 mg/dL 08/10/2016 Comp Metabolic Jyf001 ALK PHOS 144 U/L 08/10/2016 Comp Metabolic Xgg892 AST(SGOT) 62 U/L 08/10/2016 Comp Metabolic Zjp270 ALT(SGPT) 37 U/L 08/10/2016 Comp Metabolic Nqd588 BILI T 0.3 mg/dL 08/10/2016 Comp Metabolic Sja904 ALBUMIN 4.3 g/dL 08/10/2016 Comp Metabolic Kax634 TPRO 7.3 g/dL 08/10/2016 Comp Metabolic Yto629 GLOB 3.0 g/dL 08/10/2016 Comp Metabolic Mvu449 A/G Ratio 1.5 Ratio 08/10/2016 Comp Metabolic Syn827 Osmo 282 mOsmo 08/10/2016 Free T4 Dje720 FREE T4 0.89 ng/dL 08/09/2016 Tsh Ord6 [...] 27.1 pg 08/09/2016 Cbc With Differential Ord2 [place]% 5.4 % 08/09/2016 Cbc With Differential Ord2 [...] 2.46 K/ul 08/09/2016 Cbc With Differential Ord2 [place] ABS# 0.8 K/ul 08/09/2016 Cbc With Differential [...] 26.3 % 04/20/2016 Cbc With Differential Ord2 MCH 27.3 pg 04/20/2016 Cbc With Differential Ord2 [place]% 6.3 % 04/20/2016 Cbc With Differential Ord2 MCHC [...] 2.63 K/ul 04/20/2016 Cbc With Differential Ord2 [place] ABS# 0.6 K/ul 04/20/2016 Cbc With Differential Ord2 Eos ABS# 0.2 K/ul 04/20/2016 Cbc With Differential Ord2 Baso ABS# 0.0 K/ul 04/20/2016 Comp Metabolic Zqk047 NA 133 mEq/L 04/11/2016 Comp Metabolic Koq827 K 4.1 mEq/L 04/11/2016 Comp Metabolic Ska847 CL 92 mEq/L 04/11/2016 Comp Metabolic Kba183 CO2 30.0 mEq/L 04/11/2016 Comp Metabolic Wnc468 ANION GAP 15 04/11/2016 Comp Metabolic Gvq485 GLUCOSE 414 mg/dL 04/11/2016 Comp Metabolic Soc077 Creat 0.9 mg/dL 04/11/2016 Comp Metabolic Not175 eGFR 65 ml/min/1.73m2 04/11/2016 Comp Metabolic Mog719 BUN 22 mg/dL 04/11/2016 Comp Metabolic Rbc693 B/C Ratio 23.9 Ratio 04/11/2016 Comp Metabolic Gpp609 CALCIUM 9.2 mg/dL 04/11/2016 Comp Metabolic Iqr112 ALK PHOS 145 U/L 04/11/2016 Comp Metabolic Htw240 AST(SGOT) 22 U/L 04/11/2016 Comp Metabolic Yyc959 ALT(SGPT) 21 U/L 04/11/2016 Comp Metabolic Yzd073 BILI T 0.3 mg/dL 04/11/2016 Comp Metabolic Yjm083 ALBUMIN 3.9 g/dL 04/11/2016 Comp Metabolic Mam234 TPRO 6.8 g/dL 04/11/2016 Comp Metabolic Eip818 GLOB 3.0 g/dL 04/11/2016 Comp Metabolic Tws800 A/G Ratio 1.3 Ratio 04/11/2016 Comp Metabolic Qmf098 Osmo 287 mOsmo 04/11/2016 Cbc With Differential [...] 27.6 pg 04/11/2016 Cbc With Differential Ord2 [place]% 6.9 % 04/11/2016 Cbc With Differential Ord2 MCHC 31.0 pg 04/11/2016 Cbc With Differential Ord2 Eos% 2.1 % 04/11/2016 Cbc With Differential Ord2 PLT 307 K/ul 04/11/2016 Cbc With Differential Ord2 Baso% 0.3 % 04/11/2016 Cbc With Differential Ord2 RDW 15.1 % 04/11/2016 Cbc With Differential Ord2 Neut ABS# 6.55 K/ul 04/11/2016 Cbc With Differential Ord2 Lymph ABS# 2.09 K/ul 04/11/2016 Cbc With Differential Ord2 [place] ABS# 0.7 K/ul 04/11/2016 Cbc With Differential Ord2 Eos ABS# 0.2 K/ul 04/11/2016 Cbc With Differential Ord2 Baso ABS# 0.0 K/ul 04/11/2016 Comp Metabolic Uby157 NA 136 mEq/L 02/26/2016 Comp Metabolic Txl491 K 3.9 mEq/L 02/26/2016 Comp Metabolic Kwa213 CL 95 mEq/L 02/26/2016 Comp Metabolic Ceb670 CO2 29.0 mEq/L 02/26/2016 Comp Metabolic Jce592 ANION GAP 16 02/26/2016 Comp Metabolic Dqd591 GLUCOSE 277 mg/dL 02/26/2016 Comp Metabolic Iwl907 Creat 0.7 mg/dL 02/26/2016 Comp Metabolic Zje377 eGFR 88 ml/min/1.73m2 02/26/2016 Comp Metabolic Ulv331 BUN 11 mg/dL 02/26/2016 Comp Metabolic Pez770 B/C Ratio 15.5 Ratio 02/26/2016 Comp Metabolic Ibh169 CALCIUM 8.8 mg/dL 02/26/2016 Comp Metabolic Agf878 ALK PHOS 119 U/L 02/26/2016 Comp Metabolic Qgc176 AST(SGOT) 25 U/L 02/26/2016 Comp Metabolic Wat155 ALT(SGPT) 20 U/L 02/26/2016 Comp Metabolic Ypr485 BILI T 0.3 mg/dL 02/26/2016 Comp Metabolic Cry549 ALBUMIN 3.8 g/dL 02/26/2016 Comp Metabolic Mle024 TPRO 6.6 g/dL 02/26/2016 Comp Metabolic Fse040 GLOB 2.8 g/dL 02/26/2016 Comp Metabolic Gue589 A/G Ratio 1.3 Ratio 02/26/2016 Comp Metabolic Xdc928 Osmo 281 mOsmo 02/26/2016 Cbc With Differential [...] 29.6 pg 02/26/2016 Cbc With Differential Ord2 [place]% 6.4 % 02/26/2016 Cbc With Differential Ord2 [...] 2.78 K/ul 02/26/2016 Cbc With Differential Ord2 [place] ABS# 0.8 K/ul 02/26/2016 Cbc With Differential Ord2 Eos ABS# 0.2 K/ul 02/26/2016 Cbc With Differential Ord2 Baso ABS# 0.1 K/ul 02/26/2016 %Hba1C Gdv256 % HbA1c 45511-9 9.6 % 02/26/2016 %Hba1C Ast261 Gluc Ave 229 mg/dL 02/26/2016 Comp Metabolic Kpa846 NA 138 mEq/L 11/10/2015 Comp Metabolic Ocj832 K 4.5 mEq/L 11/10/2015 Comp Metabolic Tne917 CL 99 mEq/L 11/10/2015 Comp Metabolic Fpz104 CO2 34.0 mEq/L 11/10/2015 Comp Metabolic Bhy129 ANION GAP 10 11/10/2015 Comp Metabolic Ecl899 GLUCOSE 167 mg/dL 11/10/2015 Comp Metabolic Mur151 Creat 0.8 mg/dL 11/10/2015 Comp Metabolic Tvo791 eGFR 78 ml/min/1.73m2 11/10/2015 Comp Metabolic Htg055 BUN 22 mg/dL 11/10/2015 Comp Metabolic Pab134 B/C Ratio 27.8 Ratio 11/10/2015 Comp Metabolic Veo439 CALCIUM 8.5 mg/dL 11/10/2015 Comp Metabolic Vbn065 ALK PHOS 130 U/L 11/10/2015 Comp Metabolic Rtj087 AST(SGOT) 56 U/L 11/10/2015 Comp Metabolic Tmw419 ALT(SGPT) 51 U/L 11/10/2015 Comp Metabolic Svj733 BILI T 0.5 mg/dL 11/10/2015 Comp Metabolic Qlr030 ALBUMIN 3.5 g/dL 11/10/2015 Comp Metabolic Gbp054 TPRO 5.8 g/dL 11/10/2015 Comp Metabolic Fgf314 GLOB 2.3 g/dL 11/10/2015 Comp Metabolic Cfr222 A/G Ratio 1.5 Ratio 11/10/2015 Comp Metabolic Kuq779 Osmo 283 mOsmo 11/10/2015 Cbc With Differential Ord2 WBC 11.14 K/ul 11/10/2015 Cbc With Differential Ord2 RBC 4.35 M/ul 11/10/2015 Cbc With Differential Ord2 HGB 12.2 g/dl 11/10/2015 Cbc With Differential Ord2 HCT 40.5 % 11/10/2015 Cbc With Differential Ord2 Neut% 73.7 % 11/10/2015 Cbc With Differential Ord2 MCV 93.1 fl 11/10/2015 Cbc With Differential Ord2 Lymph% 17.2 % 11/10/2015 Cbc With Differential Ord2 MCH 28.0 pg 11/10/2015 Cbc With Differential Ord2 [place]% 7.7 % 11/10/2015 Cbc With Differential Ord2 MCHC 30.1 pg 11/10/2015 Cbc With Differential Ord2 Eos% 1.1 % 11/10/2015 Cbc With Differential Ord2 PLT 274 K/ul 11/10/2015 Cbc With Differential Ord2 Baso% 0.3 % 11/10/2015 Cbc With Differential Ord2 RDW 16.8 % 11/10/2015 Cbc With Differential Ord2 Neut ABS# 8.21 K/ul 11/10/2015 Cbc With Differential Ord2 Lymph ABS# 1.92 K/ul 11/10/2015 Cbc With Differential Ord2 [place] ABS# 0.9 K/ul 11/10/2015 Cbc With Differential [...] 65.2 % 08/11/2015 Cbc With Differential Ord2 MCV 95.4 fl 08/11/2015 Cbc With Differential Ord2 Lymph% 25.4 % 08/11/2015 Cbc With Differential Ord2 MCH 28.6 pg 08/11/2015 Cbc With Differential Ord2 [place]% 8.1 % 08/11/2015 Cbc With Differential Ord2 [...] 2.93 K/ul 08/11/2015 Cbc With Differential Ord2 [place] ABS# 0.9 K/ul 08/11/2015 Cbc With Differential Ord2 Eos ABS# 0.1 K/ul 08/11/2015 Cbc With Differential Ord2 Baso ABS# 0.0 K/ul 08/11/2015 Cbc With Differential Ord2 New Analyzer Notice Please note new ref ranges starting 06-03-2015 due to implemntation of new five part differential hematolgy analyzer. 08/11/2015 Comp Metabolic Jlo441 NA 142 mEq/L 08/11/2015 Comp Metabolic Ysk739 K 3.6 mEq/L 08/11/2015 Comp Metabolic Wtw436 CL 98 mEq/L 08/11/2015 Comp Metabolic Jjr985 CO2 33.0 mEq/L 08/11/2015 Comp Metabolic Oaj998 ANION GAP 15 08/11/2015 Comp Metabolic Mfv205 GLUCOSE 100 mg/dL 08/11/2015 Comp Metabolic Wdw737 Creat 0.9 mg/dL 08/11/2015 Comp Metabolic Kjn855 eGFR 65 ml/min/1.73m2 08/11/2015 Comp Metabolic Oql828 BUN 15 mg/dL 08/11/2015 Comp Metabolic Waa514 B/C Ratio 16.3 Ratio 08/11/2015 Comp Metabolic Trv735 CALCIUM 8.8 mg/dL 08/11/2015 Comp Metabolic Qft504 ALK PHOS 171 U/L 08/11/2015 Comp Metabolic Yga807 AST(SGOT) 76 U/L 08/11/2015 Comp Metabolic Bat746 ALT(SGPT) 64 U/L 08/11/2015 Comp Metabolic Kxi003 BILI T 0.4 mg/dL 08/11/2015 Comp Metabolic Lkp066 ALBUMIN 4.2 g/dL 08/11/2015 Comp Metabolic Nti865 TPRO 6.7 g/dL 08/11/2015 Comp Metabolic Jxw696 GLOB 2.6 g/dL 08/11/2015 Comp Metabolic Fgh638 A/G Ratio 1.6 Ratio 08/11/2015 Comp Metabolic Kso686 Osmo 284 mOsmo 08/11/2015 %Hba1C Pga033 % HbA1c 38402-4 6.7 % 08/11/2015 %Hba1C Lcu455 Gluc Ave 146 mg/dL 08/11/2015 Free T4 Qdd634 FREE T4 1.07 ng/dL 08/11/2015 Culture Urine [id number] URINE CULTURE SEE NOTES 07/23/2015 Culture Urine [id number] Continued Results 07/23/2015 Urine Culture Ucult Complete Growth of aerobe sent to ref lab 07/21/2015 Free T4 Tsv505 FREE T4 0.76 ng/dL 04/15/2015 Tsh Ord6 hTSH II 1.99 uIU/mL 04/15/2015 %Hba1C Nfg696 % HbA1c 78737-1 6.7 % 04/14/2015 %Hba1C Yiz758 Gluc Ave 146 mg/dL 04/14/2015 Comp Metabolic Aqx139 NA 140 mEq/L 04/14/2015 Comp Metabolic Djb207 K 4.4 mEq/L 04/14/2015 Comp Metabolic Nwc131 CL 99 mEq/L 04/14/2015 Comp Metabolic Bez586 CO2 29.0 mEq/L 04/14/2015 Comp Metabolic Aqe366 ANION GAP 16 04/14/2015 Comp Metabolic Nhe725 GLUCOSE 100 mg/dL 04/14/2015 Comp Metabolic Vii962 Creat 0.7 mg/dL 04/14/2015 Comp Metabolic Dle509 eGFR 91 ml/min/1.73m2 04/14/2015 Comp Metabolic Gcw738 BUN 13 mg/dL 04/14/2015 Comp Metabolic Qgb054 B/C Ratio 18.8 Ratio 04/14/2015 Comp Metabolic Jxr190 CALCIUM 9.1 mg/dL 04/14/2015 Comp Metabolic Mpn208 ALK PHOS 138 U/L 04/14/2015 Comp Metabolic Dtl521 AST(SGOT) 22 U/L 04/14/2015 Comp Metabolic Tof316 ALT(SGPT) 22 U/L 04/14/2015 Comp Metabolic Ytr647 BILI T 0.3 mg/dL 04/14/2015 Comp Metabolic Zlf981 ALBUMIN 4.0 g/dL 04/14/2015 Comp Metabolic Ist703 TPRO 6.5 g/dL 04/14/2015 Comp Metabolic Vtx510 GLOB 2.5 g/dL 04/14/2015 Comp Metabolic Xxl714 A/G Ratio 1.6 Ratio 04/14/2015 Comp Metabolic Hkz171 Osmo 280 mOsmo 04/14/2015 Cbc With Differential [...] Ord2 RDW 16.5 % 04/14/2015 CHEM 14 20271124 AST 15 U/L 09/11/2013 CHEM 14 20271124 ALT 25 IU/L 09/11/2013 CHEM 14 0156883 BUN 29 MG/DL 09/11/2013 CHEM 14 5463306 ALBUMIN 3.8 GM/DL 09/11/2013 CHEM 14 2095733 CHLORIDE 99 MMOL/L 09/11/2013 CHEM 14 4941446 BILI TOT 0.2 MG/DL 09/11/2013 CHEM 14 1785667 ALK PHOS 118 U/L 09/11/2013 CHEM 14 8772996 SODIUM 136 MMOL/L 09/11/2013 CHEM 14 2608175 CREATININE 1.26 MG/DL 09/11/2013 CHEM 14 5762480 CALCIUM 9.0 MG/DL 09/11/2013 CHEM 14 0103837 POTASSIUM 5.0 MMOL/L 09/11/2013 CHEM 14 7989385 PROT TOT 6.2 GM/DL 09/11/2013 CHEM 14 7914060 GLUCOSE 254 MG/DL 09/11/2013 CHEM 14 6438886 BICARB 29 MMOL/L 09/11/2013 CHEM 14 4510679 ANION GAP 8 MEQ/L 09/11/2013 GFR CALC 6623176 GFR AA 52.0L ML/MIN 09/11/2013 GFR CALC 1840591 GFR NON-AA 43.0L ML/MIN 09/11/2013 FREE T4 [id number] FREE T4 1.35 NG/DL 08/02/2013 CBC 4132676 WBC 7.5 10e9/L 08/01/2013 CBC 5065125 RBC 3.88 10e12/L 08/01/2013 CBC 9670677 HGB 12.1 g/dL 08/01/2013 CBC 0474989 HCT DET 37.6 % 08/01/2013 CBC 3085482 MCV 96.9 fL 08/01/2013 CBC 1769138 MCH 31.2 pg 08/01/2013 CBC 3062471 MCHC 32.2 g/dL 08/01/2013 CBC 6708620 PLT 289 10e9/L 08/01/2013 CBC 4485708 MPV 9.6 fL 08/01/2013 CBC 9060369 JOSEFINA % 56.0 % 08/01/2013 CBC 6262571 LY % 31.6 % 08/01/2013 CBC 8305527 MON % 10.0 % 08/01/2013 CBC 2870496 EOS % 1.7 % 08/01/2013 CBC 6158556 BASO % 0.7 % 08/01/2013 CBC 2017302 RDW 15.5 % 08/01/2013 CBC 0997902 ABS JOSEFINA 4.20 10e9/L 08/01/2013 CBC 6733360 ABS LYMPH 2.37 10e9/L 08/01/2013 CBC 9310144 ABS MONO 0.75 10e9/L 08/01/2013 CBC 8362338 ABS EOS 0.13 10e9/L 08/01/2013 CBC 9490060 ABS BASO 0.05 10e9/L 08/01/2013 CBC 3842841 RDW-SD 53.5 fL 08/01/2013 TSH 3944221 TSH 6.497 uIU/ML 08/01/2013 CHEM 14 0245667 AST 53 U/L 08/01/2013 CHEM 14 8943673 ALT 36 IU/L 08/01/2013 CHEM 14 9700214 BUN 16 MG/DL 08/01/2013 CHEM 14 0950840 ALBUMIN 4.2 GM/DL 08/01/2013 CHEM 14 9891522 CHLORIDE 103 MMOL/L 08/01/2013 CHEM 14 1522459 BILI TOT 0.4 MG/DL 08/01/2013 CHEM 14 1599865 ALK PHOS 113 U/L 08/01/2013 CHEM 14 2246992 SODIUM 139 MMOL/L 08/01/2013 CHEM 14 8109895 CREATININE 0.83 MG/DL 08/01/2013 CHEM 14 2490779 CALCIUM 9.5 MG/DL 08/01/2013 CHEM 14 7510042 POTASSIUM 4.2 MMOL/L 08/01/2013 CHEM 14 0944563 PROT TOT 6.4 GM/DL 08/01/2013 CHEM 14 9510373 GLUCOSE 135 MG/DL 08/01/2013 CHEM 14 1565455 BICARB 26 MMOL/L 08/01/2013 CHEM 14 3206871 ANION GAP 10 MEQ/L 08/01/2013 A1C HPLC 3121609 A1C HPLC 75927-2 8.1 % 08/01/2013 GFR CALC 4356593 GFR AA >60 ML/MIN 08/01/2013 GFR CALC 9243186 GFR NON-AA >60 ML/MIN 08/01/2013 CBC 7964511 WBC 10.4 10e9/L 03/21/2013 CBC 7319063 RBC 4.27 10e12/L 03/21/2013 CBC 9379024 HGB 13.1 g/dL 03/21/2013 CBC 2280033 HCT DET 41.2 % 03/21/2013 CBC 4081997 MCV 96.5 fL 03/21/2013 CBC 3070092 MCH 30.7 pg 03/21/2013 CBC 1729161 MCHC 31.8 g/dL 03/21/2013 CBC 3602018 PLT 398 10e9/L 03/21/2013 CBC 7591263 MPV 10.9 fL 03/21/2013 CBC 7607855 JOSEFINA % 65.4 % 03/21/2013 CBC 8631185 LY % 25.6 % 03/21/2013 CBC 7053028 MON % 6.7 % 03/21/2013 CBC 3988652 EOS % 1.9 % 03/21/2013 CBC 5226246 BASO % 0.4 % 03/21/2013 CBC 3711855 RDW 14.2 % 03/21/2013 CBC 2677562 ABS JOSEFINA 6.80 10e9/L 03/21/2013 CBC 1528931 ABS LYMPH 2.66 10e9/L 03/21/2013 CBC 7379731 ABS MONO 0.70 10e9/L 03/21/2013 CBC 6158561 ABS EOS 0.20 10e9/L 03/21/2013 CBC 2313380 ABS BASO 0.04 10e9/L 03/21/2013 CBC 4049421 RDW-SD 48.7 fL 03/21/2013 GFR CALC 7677225 GFR AA 57.0L ML/MIN 03/21/2013 GFR CALC 0601653 GFR NON-AA 47.0L ML/MIN 03/21/2013 CHEM 14 2364486 AST 22 U/L 03/21/2013 CHEM 14 2215800 ALT 22 IU/L 03/21/2013 CHEM 14 0700468 BUN 29 MG/DL 03/21/2013 CHEM 14 3728075 ALBUMIN 4.1 GM/DL 03/21/2013 CHEM 14 2040543 CHLORIDE 99 MMOL/L 03/21/2013 CHEM 14 1179314 BILI TOT 0.3 MG/DL 03/21/2013 CHEM 14 7925384 ALK PHOS 123 U/L 03/21/2013 CHEM 14 5217156 SODIUM 137 MMOL/L 03/21/2013 CHEM 14 3125902 CREATININE 1.16 MG/DL 03/21/2013 CHEM 14 0739912 CALCIUM 9.1 MG/DL 03/21/2013 CHEM 14 0625851 POTASSIUM 4.1 MMOL/L 03/21/2013 CHEM 14 9778614 PROT TOT 6.7 GM/DL 03/21/2013 CHEM 14 0721455 GLUCOSE 209 MG/DL 03/21/2013 CHEM 14 2258860 BICARB 26 MMOL/L 03/21/2013 CHEM 14 3569367 ANION GAP 12 MEQ/L 03/21/2013 A1C HPLC 3551598 A1C HPLC 01094-8 6.6 % 03/21/2013 GFR CALC 3030564 GFR AA >60 ML/MIN 01/17/2013 GFR CALC 7492808 GFR NON-AA 51.0L ML/MIN 01/17/2013 CHEM 14 5216420 AST 18 U/L 01/17/2013 CHEM 14 9439696 ALT 32 IU/L 01/17/2013 CHEM 14 5579944 BUN 22 MG/DL 01/17/2013 CHEM 14 9290367 ALBUMIN 4.1 GM/DL 01/17/2013 CHEM 14 7912248 CHLORIDE 99 MMOL/L 01/17/2013 CHEM 14 6071147 BILI TOT 0.3 MG/DL 01/17/2013 CHEM 14 1082896 ALK PHOS 110 U/L 01/17/2013 CHEM 14 4133706 SODIUM 138 MMOL/L 01/17/2013 CHEM 14 5887413 CREATININE 1.09 MG/DL 01/17/2013 CHEM 14 1077021 CALCIUM 8.8 MG/DL 01/17/2013 CHEM 14 9783087 POTASSIUM 3.5 MMOL/L 01/17/2013 CHEM 14 0951345 PROT TOT 6.1 GM/DL 01/17/2013 CHEM 14 6820590 GLUCOSE 163 MG/DL 01/17/2013 CHEM 14 2147526 BICARB 29 MMOL/L 01/17/2013 CHEM 14 8659298 ANION GAP 10 MEQ/L 01/17/2013 CBC 6442694 WBC 8.0 10e9/L 01/17/2013 CBC 8779292 RBC 3.85 10e12/L 01/17/2013 CBC 7445624 HGB 12.6 g/dL 01/17/2013 CBC 4572137 HCT DET 38.0 % 01/17/2013 CBC 1122086 MCV 98.7 fL 01/17/2013 CBC 2327386 MCH 32.7 pg 01/17/2013 CBC 8731368 MCHC 33.2 g/dL 01/17/2013 CBC 0612035 PLT 325 10e9/L 01/17/2013 CBC 5694881 MPV 10.4 fL 01/17/2013 CBC 1826616 JOSEFINA % 64.6 % 01/17/2013 CBC 2031313 LY % 27.0 % 01/17/2013 CBC 8665598 MON % 6.8 % 01/17/2013 CBC 5713279 EOS % 1.4 % 01/17/2013 CBC 0529092 BASO % 0.2 % 01/17/2013 CBC 4269412 RDW 15.5 % 01/17/2013 CBC 5434311 ABS JOSEFINA 5.17 10e9/L 01/17/2013 CBC 1588351 ABS LYMPH 2.16 10e9/L 01/17/2013 CBC 5099141 ABS MONO 0.54 10e9/L 01/17/2013 CBC 4238252 ABS EOS 0.11 10e9/L 01/17/2013 CBC 5677840 ABS BASO 0.02 10e9/L 01/17/2013 CBC 9177747 RDW-SD 54.3 fL 01/17/2013 TSH 3805207 TSH 3.683 uIU/ML 12/31/2012 FREE T4 1602830 FREE T4 1.34 NG/DL 12/31/2012 A1C HPLC 5200560 A1C HPLC 47764-7 6.6 % 12/21/2012 CHEM 14 9049705 AST 16 U/L 12/20/2012 CHEM 14 4216972 ALT 36 IU/L 12/20/2012 CHEM 14 2300697 BUN 26 MG/DL 12/20/2012 CHEM 14 7435958 ALBUMIN 4.2 GM/DL 12/20/2012 CHEM 14 0600207 CHLORIDE 103 MMOL/L 12/20/2012 CHEM 14 6157563 BILI TOT 0.4 MG/DL 12/20/2012 CHEM 14 5324705 ALK PHOS 107 U/L 12/20/2012 CHEM 14 3402622 SODIUM 141 MMOL/L 12/20/2012 CHEM 14 1018595 CREATININE 0.73 MG/DL 12/20/2012 CHEM 14 3753167 CALCIUM 9.2 MG/DL 12/20/2012 CHEM 14 3742749 POTASSIUM 4.3 MMOL/L 12/20/2012 CHEM 14 9117935 PROT TOT 6.2 GM/DL 12/20/2012 CHEM 14 4424338 GLUCOSE 135 MG/DL 12/20/2012 CHEM 14 7471967 BICARB 32 MMOL/L 12/20/2012 CHEM 14 6455172 ANION GAP 6 MEQ/L 12/20/2012 GFR CALC 8534399 GFR AA >60 ML/MIN 12/20/2012 GFR CALC 1889307 GFR NON-AA >60 ML/MIN 12/20/2012 CBC 6029551 WBC 8.4 10e9/L 12/20/2012 CBC 0768519 RBC 4.30 10e12/L 12/20/2012 CBC 5275937 HGB 13.9 g/dL 12/20/2012 CBC 8684698 HCT DET 41.8 % 12/20/2012 CBC 9408576 MCV 97.2 fL 12/20/2012 CBC 6448725 MCH 32.3 pg 12/20/2012 CBC 0036736 MCHC 33.3 g/dL 12/20/2012 CBC 0058094 PLT 358 10e9/L 12/20/2012 CBC 1441486 MPV 10.2 fL 12/20/2012 CBC 5745486 JOSEFINA % 63.3 % 12/20/2012 CBC 5592803 LY % 28.9 % 12/20/2012 CBC 6046484 MON % 6.3 % 12/20/2012 CBC 1299142 EOS % 1.1 % 12/20/2012 CBC 6529548 BASO % 0.4 % 12/20/2012 CBC 4912469 RDW 15.3 % 12/20/2012 CBC 3937497 ABS JOSEFINA 5.32 10e9/L 12/20/2012 CBC 7420757 ABS LYMPH 2.43 10e9/L 12/20/2012 CBC 2599642 ABS MONO 0.53 10e9/L 12/20/2012 CBC 4358567 ABS EOS 0.09 10e9/L 12/20/2012 CBC 8068272 ABS BASO 0.03 10e9/L 12/20/2012 CBC 5445343 RDW-SD 51.9 fL 12/20/2012 GFR CALC 3271487 GFR AA >60 ML/MIN 02/01/2012 GFR CALC 7491060 GFR NON-AA >60 ML/MIN 02/01/2012 CBC 1287924 WBC 10.8 10e9/L 02/01/2012 CBC 8412127 RBC 3.86 10e12/L 02/01/2012 CBC 3855402 HGB 11.8 g/dL 02/01/2012 CBC 2379435 HCT DET 36.3 % 02/01/2012 CBC 9774012 MCV 94.0 fL 02/01/2012 CBC 2455272 MCH 30.6 pg 02/01/2012 CBC 0786505 MCHC 32.5 g/dL 02/01/2012 CBC 2487551 PLT 321 10e9/L 02/01/2012 CBC 2901156 MPV 10.3 fL 02/01/2012 CBC 5734874 JOSEFINA % 75.9 % 02/01/2012 CBC 0271646 LY % 16.1 % 02/01/2012 CBC 1022865 MON % 6.8 % 02/01/2012 CBC 1807344 EOS % 1.0 % 02/01/2012 CBC 8684087 BASO % 0.2 % 02/01/2012 CBC 7625602 RDW 14.2 % 02/01/2012 CBC 3024992 ABS JOSEFINA 8.20 10e9/L 02/01/2012 CBC 6143360 ABS LYMPH 1.74 10e9/L 02/01/2012 CBC 1337119 ABS MONO 0.73 10e9/L 02/01/2012 CBC 9270765 ABS EOS 0.11 10e9/L 02/01/2012 CBC 6457252 ABS BASO 0.02 10e9/L 02/01/2012 CBC 7139120 RDW-SD 47.2 fL 02/01/2012 BRAIN PEP 7381076 BRAIN PEP FOOTNOTE pg/mL 02/01/2012 CHEM 14 8054897 AST 26 U/L 02/01/2012 CHEM 14 4565063 ALT 36 IU/L 02/01/2012 CHEM 14 9660820 BUN 29 MG/DL 02/01/2012 CHEM 14 8593993 ALBUMIN 3.7 GM/DL 02/01/2012 CHEM 14 5591913 CHLORIDE 105 MMOL/L 02/01/2012 CHEM 14 5333248 BILI TOT 0.2 MG/DL 02/01/2012 CHEM 14 5094907 ALK PHOS 89 U/L 02/01/2012 CHEM 14 4049592 SODIUM 141 MMOL/L 02/01/2012 CHEM 14 7503805 CREATININE 0.76 MG/DL 02/01/2012 CHEM 14 8877949 CALCIUM 9.0 MG/DL 02/01/2012 CHEM 14 7581857 POTASSIUM 4.8 MMOL/L 02/01/2012 CHEM 14 9276097 PROT TOT 5.5 GM/DL 02/01/2012 CHEM 14 3020696 GLUCOSE 83 MG/DL 02/01/2012 CHEM 14 9081155 BICARB 31 MMOL/L 02/01/2012 CHEM 14 5765588 ANION GAP 5 MEQ/L 02/01/2012 GFR CALC 4058169 GFR AA >60 ML/MIN 11/30/2011 GFR CALC 4117267 GFR NON-AA >60 ML/MIN 11/30/2011 CHEM 14 5169628 AST 14 U/L 11/30/2011 CHEM 14 6037834 ALT 17 IU/L 11/30/2011 CHEM 14 6157407 BUN 12 MG/DL 11/30/2011 CHEM 14 8249254 ALBUMIN 4.3 GM/DL 11/30/2011 CHEM 14 0179612 CHLORIDE 104 MMOL/L 11/30/2011 CHEM 14 1687477 BILI TOT 0.3 MG/DL 11/30/2011 CHEM 14 8853899 ALK PHOS 83 U/L 11/30/2011 CHEM 14 1633244 SODIUM 143 MMOL/L 11/30/2011 CHEM 14 8938804 CREATININE 0.71 MG/DL 11/30/2011 CHEM 14 4285649 CALCIUM 9.7 MG/DL 11/30/2011 CHEM 14 1896035 POTASSIUM 4.4 MMOL/L 11/30/2011 CHEM 14 6398569 PROT TOT 6.3 GM/DL 11/30/2011 CHEM 14 2882257 GLUCOSE 107 MG/DL 11/30/2011 CHEM 14 3095107 BICARB 27 MMOL/L 11/30/2011 CHEM 14 0102950 ANION GAP 12 MEQ/L 11/30/2011 CBC 3930186 WBC 8.7 10e9/L 11/30/2011 CBC 7329586 RBC 4.40 10e12/L 11/30/2011 CBC 3220094 HGB 13.6 g/dL 11/30/2011 CBC 0394735 HCT DET 41.0 % 11/30/2011 CBC 2191189 MCV 93.2 fL 11/30/2011 CBC 0932415 MCH 30.9 pg 11/30/2011 CBC 6344086 MCHC 33.2 g/dL 11/30/2011 CBC 1916885 PLT 328 10e9/L 11/30/2011 CBC 2435441 MPV 10.7 fL 11/30/2011 CBC 9553704 JOSEFINA % 68.4 % 11/30/2011 CBC 0697090 LY % 22.4 % 11/30/2011 CBC 0610216 MON % 7.9 % 11/30/2011 CBC 1927916 EOS % 1.1 % 11/30/2011 CBC 5085620 BASO % 0.2 % 11/30/2011 CBC 0328983 RDW 13.5 % 11/30/2011 CBC 1478718 ABS JOSEFINA 5.95 10e9/L 11/30/2011 CBC 4469624 ABS LYMPH 1.95 10e9/L 11/30/2011 CBC 2150082 ABS MONO 0.69 10e9/L 11/30/2011 CBC 7225590 ABS EOS 0.10 10e9/L 11/30/2011 CBC 3117657 ABS BASO 0.02 10e9/L 11/30/2011 CBC 2936087 RDW-SD 45.0 fL 11/30/2011 URINALYSIS NONAUTO W/O SCOPE 08083 Specific [place] 1.030 DateTime(Free Text in Aprima) URINALYSIS NONAUTO W/O SCOPE 13203 PH 5 DateTime(Free Text in Aprima) URINALYSIS NONAUTO W/O SCOPE 04905 GLUCOSE neg DateTime( Free Text in Apr[employer]) URINALYSIS NONAUTO W/O SCOPE 84120 Protein neg DateTime( Free Text in Apr[employer]) URINALYSIS NONAUTO W/O SCOPE 53769 Blood neg DateTime(Free Text in Aprima) URINALYSIS NONAUTO W/O SCOPE 15685 Bilirubin neg DateTime(Free Text in Aprima) URINALYSIS NONAUTO W/O SCOPE 11666 Ketones neg DateTime( Free Text in Aprima) URINALYSIS NONAUTO W/O SCOPE 25906 Urobilinogen neg DateTime(Free Text in Aprima) URINALYSIS NONAUTO W/O SCOPE 48081 Nitrite neg DateTime( Free Text in Aprima) URINALYSIS NONAUTO W/O SCOPE 66041 Leukocytes neg DateTime(Free Text in Aprima) UA 45036 Specific [place] 1.010 DateTime(Free Text in Aprima ) UA 60540 PH 5 DateTime(Free Text in Aprima) UA 26127 GLUCOSE N DateTime(Free Text in Aprima) UA 10818 Protein N DateTime(Free Text in Aprima) UA 17777 Blood TRACE DateTime(Free Text in Aprima) UA 86046 Bilirubin N DateTime(Free Text in Aprima) UA 74780 Ketones N DateTime(Free Text in Aprima) UA 27584 Urobilinogen N DateTime(Free Text in Aprima) UA 01581 Nitrite N DateTime(Free Text in Aprima) UA 45753 Leukocytes N DateTime(Free Text in Aprima) URINALYSIS NONAUTO W/O SCOPE 45727 Specific [place] 1.010 DateTime(Free Text in Aprima) URINALYSIS NONAUTO W/O SCOPE 56953 PH 7.5 DateTime(Free Text in Aprima) URINALYSIS NONAUTO W/O SCOPE 46186 GLUCOSE DateTime( Free Text in Apr[employer]) URINALYSIS NONAUTO W/O SCOPE 71299 Protein trace DateTime(Free Text in Aprima) URINALYSIS NONAUTO W/O SCOPE 01356 Blood DateTime(Free Text in Aprima) URINALYSIS NONAUTO W/O SCOPE 74022 Bilirubin DateTime( Free Text in Aprima) URINALYSIS NONAUTO W/O SCOPE 48830 Ketones DateTime( Free Text in Aprima) URINALYSIS NONAUTO W/O SCOPE 89966 Urobilinogen DateTime (Free Text in Aprima) URINALYSIS NONAUTO W/O SCOPE 74692 Nitrite DateTime( Free Text in Aprima) URINALYSIS NONAUTO W/O SCOPE 67476 Leukocytes DateTime( Free Text in Aprima) URINALYSIS NONAUTO W/O SCOPE 66105 Specific Jackson 1.010 DateTime(Free Text in Aprima) URINALYSIS NONAUTO W/O SCOPE 61539 PH 6 DateTime(Free Text in Aprima) URINALYSIS NONAUTO W/O SCOPE 26670 GLUCOSE DateTime( Free Text in Aprima) URINALYSIS NONAUTO W/O SCOPE 15353 Protein DateTime( Free Text in Aprima) URINALYSIS NONAUTO W/O SCOPE 54815 Blood DateTime(Free Text in Aprima) URINALYSIS NONAUTO W/O SCOPE 50232 Bilirubin DateTime( Free Text in Aprima) URINALYSIS NONAUTO W/O SCOPE 26296 Ketones DateTime( Free Text in Aprima) URINALYSIS NONAUTO W/O SCOPE 34258 Urobilinogen DateTime (Free Text in Aprima) URINALYSIS NONAUTO W/O SCOPE 67726 Nitrite DateTime( Free Text in Aprima) URINALYSIS NONAUTO W/O SCOPE 58686 Leukocytes DateTime( Free Text in ) UA 10353 Specific Jackson 1.020 DateTime(Free Text in Apr ) UA 38261 PH 6 DateTime(Free Text in Aprima) UA 29361 GLUCOSE neg DateTime(Free Text in Aprima) UA 68343 Protein neg DateTime(Free Text in Aprima) UA 11626 Blood neg DateTime(Free Text in Aprima) UA 95860 Bilirubin neg DateTime(Free Text in Aprima) UA 67075 Ketones neg DateTime(Free Text in Aprima) UA 04851 Urobilinogen neg DateTime(Free Text in Aprima) UA 87451 Nitrite neg DateTime(Free Text in Apr) UA 61414 Leukocytes neg DateTime(Free Text in Apr) BMI 02607-5 39.7 DateTime(Free Text in ) Blood Pressure [...] 1+ 11/27/2017 None Full Exam - General 1995 Cardiovascular [...] mastoids 01/27/2014 None Full Exam - General 1995 [...] accomodation 11/14/2013 None Full Exam - General 1995 Ears/Nose/Throat external ear Overall: normal appearance 11/14/2013 None Full Exam - General 1995 Ears/Nose/Throat external ear Overall: no masses 11/14/2013 None Full Exam - General 1995 Ears/Nose/Throat external ear Overall: normal mastoids 11/14/2013 [...] exam 04/16/2013 None Full Exam - General 1994 [...] bilaterally 04/16/2013 None Full Exam - General 1995 Respiratory respiratory effort/rhythm Overall: no retractions 04/16/2013 None Full Exam - General 1995 Respiratory respiratory effort/rhythm Overall: normal rate 04/16/2013 None Full Exam - General 1995 Cardiovascular auscultation of heart Overall: regular rate 04/16/2013 None Full Exam - General 1995 Cardiovascular [...] dentition 02/12/2013 None Full Exam - General 1994 Ears/Nose/Throat lips/teeth/gingiva Overall: benign lips 02/12/2013 None [...] sounds 02/04/2013 tachycardia Full Exam - General 1995 Cardiovascular auscultation of heart Overall: no murmurs 02/04/2013 None Full Exam - General 1995 Lymphatic neck nodes Overall: shotty lymphadenopathy 02/04/2013 None Full Exam - General 1995 Neurologic mental status Overall: alert 02/04/2013 None Full Exam - General 1995 Neurologic mental status Overall: oriented 02/04/2013 None Full Exam - General 1995 Psychiatric orientation/consciousness Oriented to person: yes 02/04/2013 None Full Exam - General 1995 Psychiatric orientation/consciousness Oriented to place: yes 02/04/2013 None Full Exam - General 1994 Psychiatric orientation/consciousness Oriented to time: yes 02/04/2013 None Full Exam - General 1995 Psychiatric orientation/consciousness Level of consciousness: alert 02/04/2013 None Full Exam - General 1995 Constitutional general appearance Development: well developed 01/17/2013 None Full Exam - General 1995 Constitutional [...] exam 10/29/2012 None Full Exam - General 1994 Ears/Nose/Throat otoscopic exam Tympanic membrane: not visualized 10/29/2012 None Full Exam - General 1994 Ears/Nose/Throat internal nose Overall: bilateral nasal cavities clear 10/29/2012 None Full Exam - General 1994 Ears/Nose/Throat internal nose Turbinates: erythema 10/29/2012 None Full Exam - General 1994 Ears/Nose/Throat internal nose Drainage: clear 10/29/2012 None [...] oriented 10/29/2012 None Full Exam - General 1995 Psychiatric orientation/consciousness Oriented to person: yes 10/29/2012 None Full Exam - General 1995 Psychiatric orientation/consciousness Oriented to place: yes 10/29/2012 [...] nourished 09/21/2012 None Full Exam - General 1995 Constitutional general appearance Development: well developed 09/06/2012 [...] intact 08/13/2012 None Full Exam - General 1995 Neurologic cranial nerves Overall: crainial nerves 2 - 12 grossly intact 08/13/2012 None Full Exam - General 1994 Psychiatric orientation/consciousness Overall: oriented to person, place and time 08/13/2012 None Full Exam - General 1994 Psychiatric mood and affect Mood: depressed 08/13/2012 None Full Exam - General 1995 Psychiatric [...] time 05/28/2012 None Full Exam - General 1995 [...] developed 05/17/2012 None Full Exam - General 1995 [...] clear 05/17/2012 None Full Exam - General 1995 [...] pitting 02/27/2012 None Full Exam - General 1995 Cardiovascular extremities Edema present: severity 1+ - 4 +: _ 02/27/2012 None Full Exam - General 1995 Cardiovascular extremities Edema present: bilateral 02/27/2012 None Full Exam - General 1995 Cardiovascular extremities Edema present: to knees 02/27/2012 None Full Exam - General 1995 Cardiovascular [...] accomodation 02/01/2012 None Full Exam - General 1995 Ears/Nose/Throat otoscopic exam External auditory canal: partial cerumen occlusion 02/01/2012 None Full Exam - General 1995 Ears/Nose/Throat [...] 1995 Ears/Nose/Throat oral cavity/pharynx/larynx Overall: no masses 12/14/2011 [...] responses 11/03/2011 None Full Exam - General 1995 Eyes conjunctiva /eyelids Eyelid: edema 11/03/2011 None [...] rhythm 10/24/2011 None Full Exam - General 1995 Cardiovascular auscultation of heart S1: a normal exam 10/24/2011 None Full Exam - General 1994 Cardiovascular auscultation of heart S2: a normal exam 10/24/2011 None Full Exam - General 1995 Abdomen abdominal exam Overall: no tenderness 10/24/2011 None Full Exam - General 1995 Abdomen [...] bilateral 09/20/2011 None Full Exam - General 1995 [...] 08/01/2011 None Full Exam - General 1995 Psychiatric orientation/consciousness Overall: oriented to person, place and time 08/01/2011 None Full Exam - General 1994 Psychiatric mood and affect Overall: normal mood and affect 08/01/2011 None Full Exam - General 1994 Musculoskeletal spine, ribs and pelvis Sacroiliac joints: tender left sacroiliac joint 08/01/2011 None Full Exam - General 1995 Neck [...] Date GLUC MONITOR CONT PHYS I&R CPT-4: 80837 04/27/2018 URINALYSIS NONAUTO W/O SCOPE CPT-4: 82293 04/10/2018 GLUCOSE MONITORING CONT CPT-4: 55002 04/10/2018 OCCULT BLOOD FECES CPT -4: 15389 02/22/2018 URINALYSIS NONAUTO W/O SCOPE CPT-4: 66048 02/20/2018 URINALYSIS NONAUTO W/O SCOPE CPT-4: 46375 12/14/2017 URINALYSIS NONAUTO W/O SCOPE CPT-4: 02385 11/27/2017 PPPS, SUBSEQ VISIT CPT -4: G0439 10/27/2017 GLUCOSE MONITORING CONT CPT-4: 24117 09/27/2017 URINALYSIS NONAUTO W/O SCOPE CPT-4: 39771 06/30/2017 URINALYSIS NONAUTO W/O SCOPE CPT-4: 75688 11/25/2016 URINALYSIS NONAUTO W/O SCOPE CPT-4: 86422 10/21/2016 URINALYSIS NONAUTO W/O SCOPE CPT-4: 44543 06/24/2016 URINALYSIS NONAUTO W/O SCOPE CPT-4: 19574 04/11/2016 ADMIN PNEUMOCOCCAL VACCINE SNOMED CT: [id number] CPT-4: G0009 02/26/2016 PNEUMOCOCCAL VACC 13 ANURADHA IM Formatting Model/CDA Sections, Assigned to/Jada Velazquez SNOMED CT: [id number] CPT-4: 55860Fxguzon 02/26/2016 URINALYSIS NONAUTO W/O SCOPE CPT-4: 06664 02/10/2016 URINALYSIS NONAUTO W/O SCOPE CPT-4: 13573 11/27/2015 URINALYSIS NONAUTO W/O SCOPE CPT-4: 72903 11/02/2015 INITIAL PREVENTIVE EXAM CPT-4: G0402 09/29/2015 URINALYSIS NONAUTO W/O SCOPE CPT-4: 97854 07/20/2015 TRIAMCINOLONE ACET INJ NOS CPT-4: J3301 06/26/2015 URINALYSIS NONAUTO W/O SCOPE CPT-4: 25816 11/05/2014 URINALYSIS NONAUTO W/O SCOPE CPT-4: 45003 04/21/2014 CULTURE AEROBIC IDENTIFY CPT-4: 11482 12/12/2013 URINALYSIS NONAUTO W/O SCOPE CPT-4: 50634 11/18/2013 ROUTINE VENIPUNCTURE CPT-4: 84138 09/10/2013 ROUTINE VENIPUNCTURE CPT-4: 35425 08/01/2013 URINALYSIS NONAUTO W/O SCOPE CPT-4: 86262 06/28/2013 TRIAMCINOLONE ACET INJ NOS CPT-4: J3301 05/07/2013 DRAIN/INJECT JOINT/BURSA CPT-4: 00656 05/07/2013 ROUTINE VENIPUNCTURE CPT-4: 82813 03/21/2013 ROUTINE VENIPUNCTURE CPT-4: 87779 01/17/2013 URINALYSIS NONAUTO W/O SCOPE CPT-4: 13969 01/01/2013 ROUTINE VENIPUNCTURE CPT-4: 13473 12/31/2012 ROUTINE VENIPUNCTURE CPT-4: 18779 12/20/2012 URINALYSIS NONAUTO W/O SCOPE CPT-4: 30333 11/05/2012 DRAIN/INJECT JOINT/BURSA CPT-4: 30738 09/21/2012 TRIAMCINOLONE ACET INJ NOS CPT-4: J3301 09/21/2012 URINALYSIS NONAUTO W/O SCOPE CPT-4: 53414 07/19/2012 TRIAMCINOLONE ACET INJ NOS CPT-4: J3301 07/06/2012 Pneumococcal Polysaccharide Vaccine, 23-Valent, Ad CPT-4: 63462 06/07/2012 IMMUNIZATION ADMIN CPT -4: 53937 06/07/2012 TRIAMCINOLONE ACET INJ NOS CPT-4: J3301 05/02/2012 ROUTINE VENIPUNCTURE CPT-4: 72550 02/01/2012 URINALYSIS NONAUTO W/O SCOPE CPT-4: 95043 02/01/2012 TRIAMCINOLONE ACET INJ NOS CPT-4: J3301 12/14/2011 INJ TRIGGER POINT 1/2 MUSCL CPT-4: 38802 12/14/2011 PROMETHAZINE HCL INJECTION CPT-4: J2550 11/30/2011 ROUTINE VENIPUNCTURE CPT-4: 12261 11/30/2011 TRIAMCINOLONE ACET INJ NOS CPT-4: J3301 08/01/2011 DRAIN/INJECT JOINT/BURSA CPT-4: 78479 08/01/2011 THER/PROPH/DIAG INJ SC/IM CPT-4: 91952 04/18/2011 TRIAMCINOLONE ACET INJ NOS CPT-4: J3301 04/18/2011 Vital Signs Date Vital 04/27/2018 Blood Pressure 1: 122/54 Code : 8480-6 BMI: 39.7 Code : 72498-6 Heart Rate 1 : 84 bpm Height: 5'2" SpO2: 92% 04/10/2018 Blood Pressure 1: 120/68 Code : 8480-6 BMI: 39.7 Code : 86002-6 Heart Rate 1 : 87 bpm Height: 5'2" SpO2: 99% Weight: 217 lbs 03/12/2018 Blood Pressure 1: 140/70 Code : 8480-6 BMI: 40.2 Code : 72024-2 Heart Rate 1 : 78 bpm Height: 5'2" SpO2: 98% Weight: 220 lbs 02/20/2018 Blood Pressure 1: 140/70 Code : 8480-6 BMI: 40.2 Code : 86692-1 Heart Rate 1 : 96 bpm Height: 5'2" SpO2: 93% Weight: 220 lbs 11/27/2017 Blood Pressure 1: 158/78 Code : 8480-6 BMI: 40.8 Code : 99142-2 Heart Rate 1 : 100 bpm Height: 5'2" SpO2: 95% Weight: 223 lbs 10/27/2017 Blood Pressure 1: 146/70 Code : 8480-6 BMI: 41.3 Code : 90708-2 Heart Rate 1 : 82 bpm Height: 5'2" SpO2: 99% Waist Measure (cm): 119 cm Weight: 226 lbs 09/15/2017 Blood Pressure 1: 136/66 Code : 8480-6 BMI: 41.5 Code : 43743-4 Heart Rate 1 : 94 bpm Height: 5'2" SpO2: 96% Weight: 227 lbs 08/18/2017 Blood Pressure 1: 120/68 Code : 8480-6 BMI: 41.5 Code : 52155-2 Heart Rate 1 : 87 bpm Height: 5'2" SpO2: 94% Weight: 227 lbs 08/03/2017 Blood Pressure 1: 132/72 Code : 8480-6 BMI: 41.5 Code : 42785-8 Heart Rate 1 : 93 bpm Height: 5'2" SpO2: 95% Weight: 227 lbs 07/27/2017 Blood Pressure 1: 128/84 Code : 8480-6 BMI: 41.5 Code : 51723-4 Heart Rate 1 : 91 bpm Height: 5'2" SpO2: 98% Weight: 227 lbs 06/13/2017 Blood Pressure 1: 136/84 Code : 8480-6 BMI: 42.6 Code : 93649-3 Heart Rate 1 : 91 bpm Height: 5'2" SpO2: 94% Weight: 233 lbs 04/21/2017 Blood Pressure 1: 142/84 Code : 8480-6 BMI: 42.8 Code : 97059-4 Heart Rate 1 : 89 bpm Height: 5'2" SpO2: 94% Weight: 234 lbs 04/18/2017 Blood Pressure 1: 140/86 Code : 8480-6 BMI: 42.8 Code : 55745-5 Heart Rate 1 : 89 bpm Height: 5'2" SpO2: 97% Weight: 234 lbs 03/27/2017 Blood Pressure 1: 148/76 Code : 8480-6 BMI: 42.6 Code : 13965-2 Heart Rate 1 : 92 bpm Height: [...] Code : 8480-6 BMI: 44.3 Code : 79518-5 Heart Rate 1 : 90 bpm Height: 5'2" SpO2: 96% Weight: 242 lbs 01/30/2017 Blood Pressure 1: 132/72 Code : 8480-6 Heart Rate 1: 97 bpm Height: 5'2" SpO2: 96% Weight: 01/16/2017 Blood Pressure 1: 138/76 Code : 8480-6 BMI: 43.3 Code : 28531-9 Heart Rate 1 : 84 bpm Height: 5'2" SpO2: 99% Weight: 237 lbs 12/13/2016 Blood Pressure 1: 144/78 Code : 8480-6 Heart Rate 1: 96 bpm Height: 5'2" SpO2: 98% Temperature: 36.6 (C) / 97.9 (F) Weight: 11/11/2016 Blood Pressure 1: 144/80 Code : 8480-6 BMI: 43.0 Code : 92289-5 Heart Rate 1 : 89 bpm Height: 5'2" SpO2: 94% Temperature: 36.1 (C) / 97.0 (F) Weight: 235 lbs 10/28/2016 Blood Pressure 1: 156/82 Code : 8480-6 BMI: 43.9 Code : 53536-9 Heart Rate 1 : 78 bpm Height: [...] Code : 8480-6 BMI: 42.4 Code : 50001-1 Heart Rate 1 : 95 bpm Height: 5'2" SpO2: 98% Weight: 232 lbs 08/09/2016 Blood Pressure 1: 138/80 Code : 8480-6 BMI: 41.0 Code : 15573-1 Heart Rate 1 : 98 bpm Height: 5'2" SpO2: 97% Weight: 224 lbs 07/26/2016 Blood Pressure 1: 148/82 Code : 8480-6 BMI: 42.4 Code : 35716-4 Heart Rate 1 : 89 bpm Height: 5'2" SpO2: 97% Weight: 232 lbs 05/24/2016 Blood Pressure 1: 146/72 Code : 8480-6 BMI: 42.4 Code : 95808-1 Heart Rate 1 : 89 bpm Height: 5'2" SpO2: 99% Weight: 232 lbs 04/19/2016 Blood Pressure 1: 130/88 Code : 8480-6 BMI: 42.4 Code : 55934-0 Heart Rate 1 : 88 bpm Height: 5'2" SpO2: 98% Weight: 232 lbs 04/11/2016 Blood Pressure 1: 140/80 Code : 8480-6 BMI: 41.7 Code : 22561-6 Heart Rate 1 : 97 bpm Height: 5'2" SpO2: 95% Weight: 228 lbs 03/21/2016 Blood Pressure 1: 138/80 Code : 8480-6 BMI: 44.4 Code : 88953-0 Height: 5'2" Weight: 243 lbs 03/11/2016 Blood Pressure 1: 138/82 Code : 8480-6 BMI: 44.4 Code : 24258-2 Heart Rate 1 : 86 bpm Height: 5'2" SpO2: 95% Weight: 243 lbs 02/26/2016 Blood Pressure 1: 130/82 Code : 8480-6 BMI: 43.9 Code : 30679-2 Heart Rate 1 : 86 bpm Height: 5'2" SpO2: 97% Weight: 240 lbs 02/02/2016 Blood Pressure 1: 136/86 Code : 8480-6 Heart Rate 1: 56 bpm Height: SpO2: 96% Weight: 12/17/2015 Blood Pressure 1: 140/80 Code : 8480-6 BMI: 40.2 Code : 15219-3 Heart Rate 1 : 100 bpm Height: 5'2" SpO2: 99% Weight: 220 lbs 12/08/2015 Blood Pressure 1: 132/86 Code : 8480-6 Heart Rate 1: 100 bpm Height: SpO2: 97% Weight: 11/27/2015 Blood Pressure 1: 128/82 Code : 8480-6 BMI: 39.3 Code : 42121-8 Heart Rate 1 : 112 bpm Height: 5'2" SpO2: 96% Weight: 215 lbs 11/12/2015 Blood Pressure 1: 168/88 Code : 8480-6 Heart Rate 1: 106 bpm Height: 5'2" SpO2: 96% Weight: 11/10/2015 Blood Pressure 1: 156/80 Code : 8480-6 Heart Rate 1: 94 bpm Height: 5'2" SpO2: 96% Weight: 10/27/2015 Blood Pressure 1: 142/76 Code : 8480-6 BMI: 40.8 Code : 76466-9 Heart Rate 1 : 86 bpm Height: 5'2" SpO2: 97% Weight: 223 lbs 09/29/2015 Blood Pressure 1: 132/88 Code : 8480-6 BMI: 41.7 Code : 10919-0 Heart Rate 1 : 104 bpm Height: 5'2" SpO2: 94% Weight: 228 lbs 09/22/2015 Blood Pressure 1: 130/80 Code : 8480-6 BMI: 41.7 Code : 45613-7 Heart Rate 1 : 89 bpm Height: 5'2" SpO2: 97% Weight: 228 lbs 09/01/2015 Blood Pressure 1: 138/88 Code : 8480-6 BMI: 40.6 Code : 44595-7 Heart Rate 1 : 95 bpm Height: 5'2" SpO2: 95% Weight: 222 lbs 08/10/2015 Blood Pressure 1: 140/82 Code : 8480-6 BMI: 41.0 Code : 33665-5 Heart Rate 1 : 84 bpm Height: 5'2" SpO2: 97% Weight: 224 lbs 06/26/2015 Blood Pressure 1: 152/72 Code : 8480-6 BMI: 41.2 Code : 27777-0 Heart Rate 1 : 92 bpm Height: 5'2" SpO2: 96% Weight: 225 lbs 04/14/2015 Blood Pressure 1: 158/86 Code : 8480-6 BMI: 41.2 Code : 67410-7 Heart Rate 1 : 63 bpm Height: 5'2" SpO2: 93% Weight: 225 lbs 03/03/2015 Blood Pressure 1: 152/80 Code : 8480-6 BMI: 40.1 Code : 43491-3 Heart Rate 1 : 101 bpm Height: 5'2" SpO2: 97% Weight: 219 lbs 01/15/2015 Blood Pressure 1: 127/76 Code : 8480-6 BMI: 40.6 Code : 29350-2 Heart Rate 1 : 109 bpm Height: 5'2" SpO2: 97% Weight: 222 lbs 01/01/2015 Blood Pressure 1: 136/64 Code : 8480-6 BMI: 40.4 Code : 39490-9 Heart Rate 1 : 94 bpm Height: 5'2" SpO2: 96% Weight: 221 lbs 12/25/2014 Blood Pressure 1: 146/80 Code : 8480-6 Heart Rate 1: 95 bpm Height: 5'2" SpO2: 94% 11/04/2014 Blood Pressure 1: 110/70 Code : 8480-6 BMI: 40.2 Code : 32708-2 Heart Rate 1 : 878 bpm Height: 5'2" SpO2: 97% Weight: 220 lbs 09/08/2014 Blood Pressure 1: 142/78 Code : 8480-6 BMI: 39.5 Code : 39704-1 Heart Rate 1 : 97 bpm Height: 5'2" SpO2: 98% Weight: 216 lbs 08/29/2014 Blood Pressure 1: 140/90 Code : 8480-6 Blood Pressure 2: 120/70 Code: 8480-6 BMI: 40.2 Code: 25901-2 Heart Rate 1: 88 bpm Height: 5'2" Weight: 220 lbs 06/30/2014 Blood Pressure 1: 132/74 Code : 8480-6 BMI: 39.1 Code : 20124-1 Heart Rate 1 : 76 bpm Height: 5'2" Weight: 214 lbs 06/12/2014 Blood Pressure 1: 118/76 Code : 8480-6 BMI: 40.4 Code : 41679-3 Heart Rate 1 : 86 bpm Height: 5'2" SpO2: 96% Weight: 221 lbs 05/26/2014 Blood Pressure 1: 128/78 Code : 8480-6 BMI: 39.5 Code : 68226-9 Heart Rate 1 : 76 bpm Height: 5'2" Weight: 216 lbs 04/15/2014 Blood Pressure 1: 144/72 Code : 8480-6 BMI: 40.8 Code : 60949-2 Heart Rate 1 : 60 bpm Height: 5'2" Weight: 223 lbs 03/25/2014 Blood Pressure 1: 118/72 Code : 8480-6 BMI: 41.2 Code : 62398-9 Heart Rate 1 : 80 bpm Height: 5'2" Weight: 225 lbs 03/03/2014 Blood Pressure 1: 138/86 Code : 8480-6 BMI: 41.5 Code : 15988-4 Heart Rate 1 : 104 bpm Height: 5'2" Temperature: 36.1 (C) / 97.0 (F) Weight: 227 lbs 02/13/2014 Blood Pressure 1: 142/88 Code : 8480-6 BMI: 40.8 Code : 40924-0 Heart Rate 1 : 88 bpm Height: 5'2" Weight: 223 lbs 01/27/2014 Blood Pressure 1: 124/68 Code : 8480-6 BMI: 39.9 Code : 05090-4 Heart Rate 1 : 89 bpm Height: 5'2" SpO2: 94% Weight: 218 lbs 12/26/2013 Blood Pressure 1: 108/52 Code : 8480-6 BMI: 41.2 Code : 16016-9 Heart Rate 1 : 96 bpm Height: 5'2" Weight: 225 lbs 12/12/2013 Blood Pressure 1: 158/88 Code : 8480-6 BMI: 42.6 Code : 27828-0 Heart Rate 1 : 80 bpm Height: 5'2" Weight: 233 lbs 11/14/2013 Blood Pressure 1: 120/60 Code : 8480-6 BMI: 42.4 Code : 60566-5 Heart Rate 1 : 96 bpm Height: 5'2" Temperature: 5423.3 (C ) / 9794.0 (F) Weight: 232 lbs 10/21/2013 Blood Pressure 1: 100/60 Code : 8480-6 BMI: 41.9 Code : 03031-7 Heart Rate 1 : 96 bpm Height: 5'2" Weight: 229 lbs 10/03/2013 Blood Pressure 1: 122/72 Code : 8480-6 BMI: 42.3 Code : 50483-4 Heart Rate 1 : 84 bpm Height: 5'2" Weight: 231 lbs 09/27/2013 Blood Pressure 1: 112/58 Code : 8480-6 Heart Rate 1: 72 bpm SpO2: 93% Temperature: 36.2 (C) / 97.1 (F) Weight: 09/23/2013 Blood Pressure 1: 108/76 Code : 8480-6 BMI: 42.4 Code : 69282-9 Heart Rate 1 : 95 bpm Height: 5'2" SpO2: 96% Weight: 232 lbs 09/20/2013 Blood Pressure 1: 150/88 Code : 8480-6 BMI: 42.4 Code : 50366-5 Heart Rate 1 : 104 bpm Height: 5'2" Weight: 232 lbs 09/10/2013 Blood Pressure 1: 112/62 Code : 8480-6 Heart Rate 1: 88 bpm Weight: 238 lbs 08/19/2013 Blood Pressure 1: 102/58 Code : 8480-6 BMI: 43.7 Code : 27159-5 Heart Rate 1 : 80 bpm Height: 5'2" Weight: 239 lbs 08/12/2013 Blood Pressure 1: 110/60 Code : 8480-6 BMI: 43.3 Code : 55436-5 Heart Rate 1 : 90 bpm Height: 5'2" SpO2: 96% Weight: 236 lbs 8 oz 08/01/2013 Blood Pressure 1: 128/72 Code : 8480-6 BMI: 42.6 Code : 06341-1 Heart Rate 1 : 78 bpm Height: 5'2" SpO2: 97% Weight: 233 lbs 07/19/2013 Blood Pressure 1: 100/60 Code : 8480-6 BMI: 44.3 Code : 68921-8 Heart Rate 1 : 92 bpm Height: 5'2" Temperature: 36.2 (C) / 97.2 (F) Weight: 242 lbs 07/15/2013 Blood Pressure 1: 180/92 Code : 8480-6 Heart Rate 1: 115 bpm SpO2: 98% Weight: 06/27/2013 Blood Pressure 1: 114/64 Code : 8480-6 BMI: 44.1 Code : 45428-1 Heart Rate 1 : 114 bpm Height: 5'2" SpO2: 93% Weight: 241 lbs 06/10/2013 Blood Pressure 1: 174/86 Code : 8480-6 BMI: 44.1 Code : 39054-0 Heart Rate 1 : 132 bpm Height: 5'2" SpO2: 94% Temperature: 35.6 (C) / 96.0 (F) Weight: 241 lbs 05/07/2013 Blood Pressure 1: 160/88 Code : 8480-6 BMI: 43.5 Code : 96527-0 Heart Rate 1 : 108 bpm Height: 5'2" SpO2: 96% Weight: 238 lbs 04/16/2013 Blood Pressure 1: 116/62 Code : 8480-6 BMI: 44.6 Code : 26144-8 Heart Rate 1 : 90 bpm Height: 5'2" SpO2: 94% Weight: 244 lbs 03/21/2013 Blood Pressure 1: 102/64 Code : 8480-6 BMI: 42.8 Code : 66667-7 Height: 5'2" Weight: 234 lbs 02/12/2013 Blood Pressure 1: 130/78 Code : 8480-6 BMI: 42.0 Code : 64796-0 Heart Rate 1 : 100 bpm Height: 5'2" Weight: 229 lbs 8 oz 02/04/2013 Blood Pressure 1: 126/68 Code : 8480-6 BMI: 44.3 Code : 41901-1 Heart Rate 1 : 88 bpm Height: 5'2" Weight: 242 lbs 01/17/2013 Blood Pressure 1: 132/76 Code : 8480-6 Heart Rate 1: 121 bpm SpO2: 97% Weight: 242 lbs 12/31/2012 Blood Pressure 1: 144/90 Code : 8480-6 BMI: 43.0 Code : 52573-6 Heart Rate 1 : 96 bpm Height: 5'2" Temperature: 36.2 (C) / 97.2 (F) Weight: 235 lbs 12/20/2012 Blood Pressure 1: 156/96 Code : 8480-6 BMI: 42.4 Code : 76787-1 Heart Rate 1 : 96 bpm Height: [...] Code : 8480-6 BMI: 38.8 Code : 27587-8 Heart Rate 1 : 96 bpm Height: 5'2" Temperature: 36.3 (C) / 97.3 (F) Weight: 212 lbs 08/23/2012 Blood Pressure 1: 116/72 Code : 8480-6 BMI: 38.3 Code : 66439-6 Heart Rate 1 : 92 bpm Height: 5'2" Weight: 209 lbs 8 oz 08/13/2012 Blood Pressure 1: 140/92 Code : 8480-6 BMI: 37.3 Code : 80957-9 Heart Rate 1 : 104 bpm Height: 5'2" Weight: 204 lbs 08/07/2012 Blood Pressure 1: 148/98 Code : 8480-6 BMI: 36.6 Code : 57502-8 Heart Rate 1 : 102 bpm Height: [...] Code : 8480-6 BMI: 35.3 Code : 23408-3 Heart Rate 1 : 105 bpm Height: [...] december - she was seen by her systems protection technician again in mid 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 She states that she saw her systems protection technician and was to be started on [...] lesion Alleviating Factors medication 09/10/[address] [facility] on Monday and start on Cipro [...] differently. States she did eat BBQ from [employer] yesterday for lunch. hypertension Quality chronic [...] data Encounters Encounter Performer Location Codes Date ([id number]) 14649 EST. PATIENT, LEVEL III Diagnosis: Cough[ICD10: R05] Diagnosis: Chronic maxillary sinusitis[ICD10: J32.0] Diagnosis: Type 2 diabetes mellitus with hyperglycemia[ICD10: E11.65] Rika Motta MD, [facility] CPT-4: 69809 04/27/[id number]) 75819 EST. PATIENT, LEVEL IV Diagnosis: Essential (primary) hypertension[ICD10: I10] Diagnosis: Type 2 diabetes mellitus with hyperglycemia[ICD10: E11.65] Diagnosis: Generalized anxiety disorder[ICD10: F41.1] Diagnosis: Weakness[ICD10: R53.1] Rika Motta MD, [facility] CPT-4: 15158 04/10/2018 ([id number]) 21214 EST. PATIENT, LEVEL IV Diagnosis: Type 2 diabetes mellitus with hyperglycemia[ICD10: E11.65] Diagnosis: Low back pain[ICD10: M54.5] Diagnosis: Essential (primary) hypertension[ICD10: I10] Diagnosis: Generalized anxiety disorder[ICD10: F41.1] Rika Motta MD, [facility] CPT-4: 49583 03/12/2018 ([id number]) 06630 EST. PATIENT, LEVEL III Diagnosis: Type 2 diabetes mellitus with hyperglycemia[ICD10: E11.65] Diagnosis: Essential (primary) hypertension[ICD10: I10] Diagnosis: Dysuria[ICD10: R30.0] Diagnosis: Vitamin D deficiency, unspecified[ICD10: E55.9] Diagnosis: Low back pain[ICD10: M54.5] Rika Motta MD, [facility] CPT-4: 76562 02/20/2018 ([id number]) 38660 EST. PATIENT, LEVEL III Diagnosis: Dysuria[ICD10: R30.0] Diagnosis: Essential (primary) hypertension[ICD10: I10] Rika Motta MD, [facility] CPT-4: 13292 11/27/2017 ([id number]) 32121 EST. PATIENT, LEVEL III Diagnosis: Type 2 diabetes mellitus with hyperglycemia[ICD10: E11.65] Diagnosis: Chronic pain syndrome[ICD10: G89.4] Rika Motta MD, [facility] CPT-4: 30506 09/15/2017 ([id number]) 36752 EST. 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 PATIENT, LEVEL III Diagnosis: Chronic maxillary sinusitis[ICD10: J32.0] Diagnosis: Type 2 diabetes mellitus with hyperglycemia[ICD10: E11.65] Diagnosis: Hordeolum externum left upper eyelid[ICD10: H00.014] Rika Motta MD, [facility] CPT-4: 60358 08/03/2017 ([id number]) 33517 EST. PATIENT, LEVEL IV Diagnosis: Type 2 diabetes mellitus with hyperglycemia[ICD10: E11.65] Diagnosis: Hordeolum externum left upper eyelid[ICD10: H00.014] Diagnosis: Essential (primary) hypertension[ICD10: I10] Diagnosis: Chronic obstructive pulmonary disease, unspecified[ICD10: J44.9] Rika Motta MD, [facility] CPT-4: 81317 07/27/2017 ([id number]) 28179 EST. PATIENT, LEVEL IV Diagnosis: Type 2 diabetes mellitus with hyperglycemia[ICD10: E11.65] Diagnosis: Essential (primary) hypertension[ICD10: I10] Tessie Motta MD, [facility] CPT-4: 81975 06/13/2017 23104 EST. PATIENT, LEVEL IV Diagnosis: Periapical abscess without sinus[ICD10: K04.7] Arlette Motta MD, [facility] CPT-4: 65021 04/21/2017 ([id number]) 76434 EST. PATIENT, LEVEL IV Diagnosis: Type 2 diabetes mellitus with hyperglycemia[ICD10: E11.65] Diagnosis: Cellulitis of abdominal wall[ICD10: L03.311] Diagnosis: Chronic pain syndrome[ICD10: G89.4] Diagnosis: Essential (primary) hypertension[ICD10: I10] Diagnosis: Unsteadiness on feet[ICD10: R26.81] Rika Motta MD, [facility] CPT-4: 78110 04/18/2017 ([id number]) 25112 EST. PATIENT, LEVEL IV Diagnosis: Type 2 diabetes mellitus with hyperglycemia[ICD10: E11.65] Diagnosis: Hypokalemia[ICD10: E87.6] Diagnosis: Essential (primary) hypertension[ICD10: I10] Diagnosis: Paroxysmal atrial fibrillation[ICD10: I48.0] Rika Motta MD, [facility] CPT-4: 27429 03/27/2017 ([id number]) 46442 EST. PATIENT, LEVEL IV Diagnosis: Essential (primary) hypertension[ICD10: I10] Diagnosis: Type 2 diabetes mellitus with hyperglycemia[ICD10: E11.65] Diagnosis: Hypokalemia[ICD10: E87.6] Diagnosis: Generalized abdominal pain[ICD10: R10.84] Rika Motta MD, [facility] CPT-4: 30317 02/27/2017 ([id number]) 32839 EST. PATIENT, LEVEL III Diagnosis: Drug induced constipation[ICD10: K59.03] Rika Motta MD, [facility] CPT-4: 34372 02/21/2017 ([id number]) 89810 EST. PATIENT, LEVEL IV Diagnosis: Generalized abdominal pain[ICD10: R10.84] Diagnosis: Hypokalemia[ICD10: E87.6] Diagnosis: Hypomagnesemia[ICD10: E83.42] Rika Motta MD, [facility] CPT-4: 48979 02/17/2017 ([id number]) 46142 EST. PATIENT, LEVEL IV Diagnosis: Paroxysmal atrial fibrillation[ICD10: I48.0] Diagnosis: Essential (primary) hypertension[ICD10: I10] Diagnosis: Chronic obstructive pulmonary disease, unspecified[ICD10: J44.9] Diagnosis: Type 2 diabetes mellitus with hyperglycemia[ICD10: E11.65] Diagnosis: Diarrhea, unspecified[ICD10: R19.7] Rika Motta MD, [facility] CPT-4: 58071 02/13/2017 ([id number]) 39416 EST. PATIENT, LEVEL IV Diagnosis: Type 2 diabetes mellitus with hyperglycemia[ICD10: E11.65] Diagnosis: Pain in right shoulder[ICD10: M25.511] Diagnosis: Chronic maxillary sinusitis[ICD10: J32.0] Rika Motta MD, [facility] CPT-4: 24732 01/30/2017 ([id number]) 35425 EST. PATIENT, LEVEL IV Diagnosis: Essential (primary) hypertension[ICD10: I10] Diagnosis: Type 2 diabetes mellitus with hyperglycemia[ICD10: E11.65] Diagnosis: Hypothyroidism, unspecified[ICD10: E03.9] Diagnosis: Generalized anxiety disorder[ICD10: F41.1] Diagnosis: Chronic pain syndrome[ICD10: G89.4] Diagnosis: Restless legs syndrome[ICD10: G25.81] Diagnosis: Obstructive sleep apnea (adult) (pediatric)[ICD10: G47.33] Rika Motta MD, [facility] CPT-4: 65622 01/16/2017 16767 EST. PATIENT, LEVEL IV Diagnosis: Other acute sinusitis[ICD10: J01.80] Diagnosis: Diplopia[ICD10: H53.2] Arlette Motta MD, [facility] CPT-4: 95302 12/13/2016 ([id number]) [id number] EST. PATIENT, LEVEL IV Diagnosis: Essential (primary) hypertension[ICD10: I10] Diagnosis: Fasciculation[ICD10: R25.3] Diagnosis: Generalized anxiety disorder[ICD10: F41.1] Diagnosis: Other obesity due to excess calories[ICD10: E66.09] Diagnosis: [place] without complications[ICD10: B02.9] Diagnosis: Unilateral primary osteoarthritis, right knee[ICD10: M17.11] Diagnosis: Unsteadiness on feet[ICD10: R26.81] Rika Motta MD, [facility] CPT-4: 09123 11/11/2016 ([id number]) 13355 EST. PATIENT, LEVEL IV Diagnosis: [place] without complications[ICD10: B02.9] Diagnosis: Type 2 diabetes mellitus with hyperglycemia[ICD10: E11.65] Diagnosis: Vomiting, unspecified[ICD10: R11.10] Rika Motta MD, [facility] CPT-4: 83610 10/28/2016 ([id number]) [id number] EST. PATIENT, LEVEL III Diagnosis: Pain in right knee[ICD10: M25.561] Diagnosis: [place] without complications[ICD10: B02.9] Rika Motta MD, [facility] CPT-4: 96389 10/13/2016 ([id number]) 74399 EST. PATIENT, LEVEL IV Diagnosis: Acute recurrent maxillary sinusitis[ICD10: J01.01] Diagnosis: Low back pain[ICD10: M54.5] Diagnosis: Pain in right knee[ICD10: M25.561] Diagnosis: Allergic rhinitis due to pollen[ICD10: J30.1] Rika Motta MD, [facility] CPT-4: 24977 09/23/2016 ([id number]) 42859 EST. PATIENT, LEVEL IV Diagnosis: Pain in right shoulder[ICD10: M25.511] Diagnosis: Type 2 diabetes mellitus with hyperglycemia[ICD10: E11.65] Diagnosis: Cervicalgia[ICD10: M54.2] Diagnosis: Candidiasis of skin and nail[ICD10: B37.2] Diagnosis: Low back pain[ICD10: M54.5] Rika Motta MD, [facility] CPT-4: 96502 09/13/2016 ([id number]) 16424 EST. 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 PATIENT, LEVEL IV Diagnosis: Type 2 diabetes mellitus with hyperglycemia[ICD10: E11.65] Diagnosis: Candidiasis of skin and nail[ICD10: B37.2] Diagnosis: Chronic obstructive pulmonary disease, unspecified[ICD10: J44.9] Diagnosis: Paroxysmal atrial fibrillation[ICD10: I48.0] Diagnosis: Pneumonia, unspecified organism[ICD10: J18.9] Rika Motta MD, [facility] CPT-4: 96839 07/26/2016 ([id number]) 17019 EST. PATIENT, LEVEL IV Diagnosis: Type 2 diabetes mellitus with hyperglycemia[ICD10: E11.65] Diagnosis: Generalized anxiety disorder[ICD10: F41.1] Diagnosis: Essential (primary) hypertension[ICD10: I10] Diagnosis: Chronic pain syndrome[ICD10: G89.4] Rika Motta MD, [facility] CPT-4: 61576 05/24/2016 ([id number]) 71815 EST. PATIENT, LEVEL IV Diagnosis: Menopausal and female climacteric states[ICD10: N95.1] Diagnosis: Type 2 diabetes mellitus with hyperglycemia[ICD10: E11.65] Diagnosis: Generalized anxiety disorder[ICD10: F41.1] Rika Motta MD, [facility] CPT-4: 65720 04/19/2016 ([id number]) 29674 EST. PATIENT, LEVEL IV Diagnosis: Type 2 diabetes mellitus with hyperglycemia[ICD10: E11.65] Diagnosis: Generalized anxiety disorder[ICD10: F41.1] Diagnosis: Essential (primary) hypertension[ICD10: I10] Diagnosis: Dysuria[ICD10: R30.0] Rika Motta MD, [facility] CPT-4: 15469 04/11/2016 ([id number]) 33071 EST. PATIENT, LEVEL IV Diagnosis: Generalized anxiety disorder[ICD10: F41.1] Diagnosis: Major depressive disorder, single episode, mild[ICD10: F32.0] Diagnosis: Hypothyroidism, unspecified[ICD10: E03.9] Diagnosis: Type 2 diabetes mellitus with hyperglycemia[ICD10: E11.65] Rika Motta MD, [facility] CPT-4: 03683 03/21/2016 ([id number]) 59682 EST. PATIENT, LEVEL IV Diagnosis: Type 2 diabetes mellitus with hyperglycemia[ICD10: E11.65] Diagnosis: Cellulitis of right lower limb[ICD10: L03.115] Diagnosis: Other elevated white blood cell count[ICD10: D72.828] Diagnosis: Localized edema[ICD10: R60.0] Rika Motta MD, [facility] CPT-4: 70993 03/11/2016 ([id number]) 63588 EST. PATIENT, LEVEL IV Diagnosis: Type 2 diabetes mellitus with hyperglycemia[ICD10: E11.65] Diagnosis: Localized edema[ICD10: R60.0] Diagnosis: Other conjunctivitis[ICD10: H10.89] Diagnosis: Obstructive sleep apnea (adult) (pediatric)[ICD10: G47.33] Diagnosis: Unspecified asthma, uncomplicated[ICD10: J45.909] Diagnosis: VAC STREP PNEUMONIAE-FLU[ICD10: Z23] Rika Motta MD, [facility] CPT-4: 24510 02/26/2016 ([id number]) 86847 EST. PATIENT, LEVEL IV Diagnosis: Essential (primary) hypertension[ICD10: I10] Diagnosis: Paroxysmal atrial fibrillation[ICD10: I48.0] Diagnosis: Type 2 diabetes mellitus with hyperglycemia[ICD10: E11.65] Diagnosis: Obstructive sleep apnea (adult) (pediatric)[ICD10: G47.33] Diagnosis: Chronic obstructive pulmonary disease, unspecified[ICD10: J44.9] Rika Motta MD, [facility] CPT-4: 41399 02/02/2016 02456) 79142 EST. 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 PATIENT, LEVEL IV Diagnosis: Type 2 diabetes mellitus with hyperglycemia[ICD10: E11.65] Diagnosis: Generalized anxiety disorder[ICD10: F41.1] Diagnosis: Essential (primary) hypertension[ICD10: I10] Diagnosis: Restless legs syndrome[ICD10: G25.81] Diagnosis: Dysuria[ICD10: R30.0] Rika Motta MD, [facility] CPT-4: 33905 11/27/2015 76325 EST. PATIENT, LEVEL IV Diagnosis: Addisonian crisis[ICD10: E27.2] Arlette Motta MD, [facility] CPT-4 : 56250 11/12/2015 05262 EST. PATIENT, LEVEL IV Diagnosis: Acute bronchitis due to other specified organisms[ICD10: J20.8] Diagnosis: Other acute sinusitis[ICD10: J01.80] Diagnosis: Other malaise[ICD10: R53.81] Diagnosis: Cough[ICD10: R05] Arlette Motta MD, [facility] CPT-4: 68931 11/10/2015 65476 EST. PATIENT, LEVEL IV Diagnosis: Pain in left knee[ICD10: M25.562] Diagnosis: Cellulitis of right toe[ICD10: L03.031] Arlette Motta MD, [facility] CPT-4: 83835 10/27/2015 ([id number]) 42437 EST. PATIENT, LEVEL IV Diagnosis: Essential (primary) hypertension[ICD10: I10] Diagnosis: Localized edema[ICD10: R60.0] Diagnosis: Type 2 diabetes mellitus with hyperglycemia[ICD10: E11.65] Rika Motta MD, [facility] CPT-4: 61121 09/22/2015 ([id number]) 02560 EST. PATIENT, LEVEL IV Diagnosis: Essential (primary) hypertension[ICD10: I10] Diagnosis: Type 2 diabetes mellitus with hyperglycemia[ICD10: E11.65] Diagnosis: Cellulitis of right toe[ICD10: L03.031] Rika Motta MD, [facility] CPT-4: 83068 09/01/2015 ([id number]) 66076 EST. PATIENT, LEVEL IV Diagnosis: Type 2 diabetes mellitus with hyperglycemia[ICD10: E11.65] Diagnosis: Essential (primary) hypertension[ICD10: I10] Diagnosis: Generalized anxiety disorder[ICD10: F41.1] Diagnosis: Hypothyroidism, unspecified[ICD10: E03.9] Diagnosis: Body mass index (BMI) 40.0-44.9, adult[ICD10: Z68.41] Rika Motta MD, [facility] CPT-4: 53327 08/10/2015 08386 EST. PATIENT, LEVEL IV Diagnosis: Acute bronchitis due to other specified organisms[ICD10: J20.8] Diagnosis: Pain in left knee[ICD10: M25.562] Diagnosis: Type 2 diabetes mellitus with hyperglycemia[ICD10: E11.65] Arlette Motta MD, [facility] CPT-4: 95308 06/26/2015 ([id number]) 96371 EST. PATIENT, LEVEL IV Diagnosis: Cellulitis of right lower limb[ICD10: L03.115] Diagnosis: Type 2 diabetes mellitus with hyperglycemia[ICD10: E11.65] Diagnosis: Essential (primary) hypertension[ICD10: I10] Diagnosis: Edema, unspecified[ICD10: R60.9] Rika Motta MD, [facility] CPT-4: 35178 04/14/2015 ([id number]) 01580 EST. PATIENT, LEVEL IV Diagnosis: Essential (primary) hypertension[ICD10: I10] Diagnosis: Type 2 diabetes mellitus with hyperglycemia[ICD10: E11.65] Diagnosis: Localized edema[ICD10: R60.0] Diagnosis: Dysuria[ICD10: R30.0] Rika Motta MD, [facility] CPT-4: 69814 03/03/2015 ([id number]) 82167 EST. PATIENT, LEVEL III Diagnosis: Blister of leg[ICD9: 916.2] Diagnosis: Rash[ICD9: 782.1] Diagnosis: EDEMA[ICD9: 782.3] Tessie Motta MD, [facility] CPT-4: 01599 01/15/2015 ([id number]) 82645 EST. PATIENT, LEVEL IV Diagnosis: Cellulitis, leg[ICD9: 682.6] Diagnosis: DIABETES TYPE II[ICD9: 250.00] Tessie Motta MD, [facility] CPT- 4: 31121 01/01/2015 ([id number]) Miscellaneous no charge Diagnosis: CVA (cerebral vascular accident)[ICD9: 434.91] Isabella Motta MD, [facility] CPT-4: 61533 12/25/2014 ([id number]) 34792 EST. PATIENT, LEVEL IV Diagnosis: ESSENTIAL HYPERTENSION[ICD9: 401.9] Diagnosis: DM W/O COMPLICATION TYPE II, UNCONTROLLED[ICD9: 250.02] Diagnosis: EDEMA[ICD9: 782.3] Diagnosis: Dysuria[ICD9: 788.1] Rika Motta MD, [facility] CPT-4: 72874 11/04/2014 ([id number]) 51720 EST. PATIENT, LEVEL IV Diagnosis: EDEMA[ICD9: 782.3] Diagnosis: Cellulitis of right leg[ICD9: 682.6] Diagnosis: Allergic rhinitis[ICD9: 477.9] Rika Motta MD, [facility] CPT-4: 47212 09/08/2014 ([id number]) 15996 EST. PATIENT, LEVEL IV Diagnosis: EDEMA[ICD9: 782.3] Diagnosis: ESSENTIAL HYPERTENSION[ICD9: 401.9] Diagnosis: DIABETES TYPE II[ICD9: 250.00] Diagnosis: Cellulitis of right leg[ICD9: 682.6] Rika Motta MD, [facility] CPT-4: 72406 08/29/2014 ([id number]) 17147 EST. PATIENT, LEVEL III Diagnosis: EDEMA[ICD9: 782.3] Diagnosis: DIABETES TYPE II[ICD9: 250.00] Tessie Motta MD, [facility] CPT- 4: 42054 06/30/2014 ([id number]) 75734 EST. PATIENT, LEVEL IV Diagnosis: EDEMA[ICD9: 782.3] Diagnosis: DM W/O COMPLICATION TYPE II, UNCONTROLLED[ICD9: 250.02] Diagnosis: Sciatica[ICD9: 724.3] Tessie Motta MD, [facility] CPT-4: 52958 06/12/2014 ([id number]) 69419 EST. PATIENT, LEVEL III Diagnosis: Cellulitis, leg[ICD9: 682.6] Diagnosis: EDEMA[ICD9: 782.3] Rika Motta MD, [facility] CPT-4: 28181 05/26/2014 ([id number]) 96942 EST. PATIENT, LEVEL IV Diagnosis: DIABETES TYPE II[ICD9: 250.00] Diagnosis: Chronic sinusitis[ICD9: 473.9] Tessie Motta MD, [facility] CPT- 4: 16226 04/15/2014 ([id number]) 10849 EST. PATIENT, LEVEL IV Diagnosis: DM W/O COMPLICATION TYPE II, UNCONTROLLED[ICD9: 250.02] Diagnosis: CHRONIC SINUSITIS[ICD9: 473.9] Diagnosis: EDEMA[ICD9: 782.3] Diagnosis: Right knee pain[ICD9: 719.46] Rika Motta MD, [facility] CPT-4: 56543 03/25/2014 ([id number]) 35746 EST. PATIENT, LEVEL IV Diagnosis: Blister of leg[ICD9: 916.2] Diagnosis: EDEMA[ICD9: 782.3] Diagnosis: DM W/O COMPLICATION TYPE II, UNCONTROLLED[ICD9: 250.02] Diagnosis: ESSENTIAL HYPERTENSION[ICD9: 401.9] Rika Motta MD, [facility] CPT-4: 38149 03/03/2014 ([id number]) 68317 EST. PATIENT, LEVEL IV Diagnosis: CELLULITIS OF LEG[ICD9: 682.6] Diagnosis: Diabetes mellitus type 2, uncontrolled[ICD9: 250.02] Diagnosis: ESSENTIAL HYPERTENSION[ICD9: 401.9] Diagnosis: EDEMA[ICD9: 782.3] Tessie Motta MD, [facility] CPT-4: 97647 02/13/2014 ([id number]) 10196 EST. PATIENT, LEVEL IV Diagnosis: Diabetes mellitus type 2, uncontrolled[ICD9: 250.02] Tessie Motta MD, [facility] CPT-4: 01511 01/27/2014 ([id number]) 05778 EST. PATIENT, LEVEL III Diagnosis: OPEN WND KNEE/LEG/ANKLE[ICD9: 891.0] Diagnosis: EDEMA[ICD9: 782.3] Rika Motta MD, [facility] CPT-4: 20012 12/26/2013 ([id number]) 27162 EST. PATIENT, LEVEL III Diagnosis: Cellulitis of right leg[ICD9: 682.6] Diagnosis: OPEN WND KNEE/LEG/ANKLE[ICD9: 891.0] Rika Motta MD, [facility] CPT-4: 67604 12/12/2013 ([id number]) 93648 EST. PATIENT, LEVEL IV Diagnosis: Asthma exacerbation[ICD9: 493.92] Diagnosis: COUGH[ICD9: 786.2] Diagnosis: EDEMA[ICD9: 782.3] Rika Motta MD, [facility] CPT-4: 21433 11/14/2013 ([id number]) 34461 EST. PATIENT, LEVEL III Diagnosis: OPEN WND KNEE/LEG/ANKLE[ICD9: 891.0] Diagnosis: EDEMA[ICD9: 782.3] Rika Motta MD, [facility] CPT-4: 54200 10/21/2013 ([id number]) 08807 EST. PATIENT, LEVEL IV Diagnosis: ESSENTIAL HYPERTENSION[SNOMED: 78554979] Diagnosis: Right knee pain[ICD9: 719.46] Diagnosis: OPEN WND KNEE/LEG/ANKLE[ICD9: 891.0] Rika Motta MD, [facility] CPT-4: 51904 10/03/2013 ([id number]) Miscellaneous no charge Diagnosis: Open wound of leg[ICD9: 891.0] Rika Motta MD, [facility] CPT-4: 77565 09/27/2013 51530 EST. PATIENT, LEVEL II Diagnosis: Open wound of leg[ICD9: 891.0] Diagnosis: Wrist pain, left[ICD9: 719.43] Rika Motta MD, [facility] CPT-4: 64669 09/23/2013 ([id number]) 22794 EST. PATIENT, LEVEL IV Diagnosis: CELLULITIS OF LEG[ICD9: 682.6] Diagnosis: ESSENTIAL HYPERTENSION[SNOMED: 75587850] Diagnosis: EDEMA[ICD9: 782.3] Rika Motta MD, [facility] CPT-4: 40317 09/20/2013 ([id number]) 86536 EST. PATIENT, LEVEL IV Diagnosis: Open wound of right lower leg[ICD9: 891.0] Diagnosis: DM W/O COMPLICATION TYPE II, UNCONTROLLED[SNOMED: 18052051] Diagnosis: Edema[ICD9: 782.3] Rika Motta MD [facility] CPT-4: 71227 09/10/2013 ([id number]) 21288 EST. PATIENT, LEVEL III Diagnosis: DM W/O COMPLICATION TYPE II, UNCONTROLLED[SNOMED: 35868317] Diagnosis: EDEMA[ICD9: 782.3] Tessie Motta MD [facility] CPT-4: 31886 08/19/2013 ([id number]) 02721 EST. PATIENT, LEVEL IV Diagnosis: EDEMA[ICD9: 782.3] Diagnosis: DIABETES TYPE II[SNOMED: 883543887] Diagnosis: HYPOTHYROIDISM[ICD9: 244.9] Diagnosis: LUMBAGO[ICD9: 724.2] Diagnosis: SCIATICA[ICD9: 724.3] Tessie Motta MD, [facility] CPT-4: 03479 08/12/2013 ([id number]) 31677 EST. PATIENT, LEVEL IV Diagnosis: DIABETES TYPE II[SNOMED: 448767289] Diagnosis: EDEMA[ICD9: 782.3] Diagnosis: HYPOTHYROIDISM[ICD9: 244.9] Diagnosis: Encounter for long-term (current) use of other medications[ICD9: V58.69] Diagnosis: LUMBAGO[ICD9: 724.2] Rika Motta MD, [facility] CPT-4: 75498 08/01/2013 ([id number]) 22302 EST. PATIENT, LEVEL III Diagnosis: Blister of right foot[ICD9: 917.2] Rika Motta MD, [facility] CPT-4: 78679 07/19/2013 ([id number]) 38414 EST. PATIENT, LEVEL III Diagnosis: Cellulitis of right leg[ICD9: 682.6] Diagnosis: ESSENTIAL HYPERTENSION[SNOMED: 71715302] Diagnosis: EDEMA[ICD9: 782.3] Rika Motta MD, [facility] CPT-4: 44497 07/15/2013 ([id number]) 14996 EST. PATIENT, LEVEL IV Diagnosis: DIABETES TYPE II[SNOMED: 812451008] Diagnosis: BACKACHE[ICD9: 724.5] Diagnosis: Muscle spasms of neck[ICD9: 728.85] Tessie Motta MD [facility] CPT-4: 75415 06/27/2013 ([id number]) 10585 EST. PATIENT, LEVEL IV Diagnosis: DM W/O COMPLICATION TYPE II, UNCONTROLLED[SNOMED: 50910806] Diagnosis: EDEMA[ICD9: 782.3] Diagnosis: OBESITY[ICD9: 278.00] Diagnosis: WHEEZING[ICD9: 786.07] Tessie Motta MD, [facility] CPT-4: 79088 06/10/2013 ([id number]) 96598 EST. PATIENT, LEVEL IV Diagnosis: CHRONIC SINUSITIS[ICD9: 473.9] Diagnosis: WHEEZING[ICD9: 786.07] Diagnosis: ACUTE BRONCHITIS[ICD9: 466.0] Diagnosis: Back pain[ICD9: 724.5] Tessie Motta MD [facility] CPT-4: 05739 05/07/2013 ([id number]) 77054 EST. PATIENT, LEVEL IV Diagnosis: EDEMA[ICD9: 782.3] Diagnosis: COPD (chronic obstructive pulmonary disease) with acute bronchitis[ ICD9: 491.22] Tessie Motta MD [facility] CPT-4: 04142 04/16/2013 ([id number]) 26367 EST. PATIENT, LEVEL IV Diagnosis: Lumbago[ICD9: 724.2] Diagnosis: DM W/O COMPLICATION TYPE II, UNCONTROLLED[SNOMED: 72373595] Diagnosis: EDEMA[ICD9: 782.3] Rika Motta MD, [facility] CPT-4: 71915 03/21/2013 ([id number]) 21849 EST. PATIENT, LEVEL IV Diagnosis: Abdominal pain[ICD9: 789.00] Diagnosis: EDEMA[ICD9: 782.3] Diagnosis: DIABETES TYPE II[SNOMED: 101099123] Tessie Motta MD, [facility] CPT-4: 66572 02/12/2013 ([id number]) 03939 EST. PATIENT, LEVEL III Diagnosis: EDEMA[ICD9: 782.3] Diagnosis: RESPIRATORY ABNORM NEC[ICD9: 786.09] Tessie Motta MD [facility] CPT-4: 15935 02/04/2013 ([id number]) 93466 EST. PATIENT, LEVEL IV Diagnosis: Edema[ICD9: 782.3] Diagnosis: ESSENTIAL HYPERTENSION[SNOMED: 63140741] Tessie Motta MD [facility] CPT-4: 01258 01/17/2013 ([id number]) 27661 EST. PATIENT, LEVEL IV Diagnosis: ESSENTIAL HYPERTENSION[SNOMED: 80638264] Diagnosis: Diabetic leg ulcer[ICD9: 250.80] Diagnosis: Callus[ICD9: 700] Diagnosis: Urinary urgency[ICD9: 788.63] Diagnosis: HYPOTHYROIDISM[ICD9: 244.9] Rika Motta MD, [facility] CPT-4: 72148 12/31/2012 ([id number]) 10957 EST. PATIENT, LEVEL IV Diagnosis: Cellulitis of left leg[ICD9: 682.6] Diagnosis: DIABETES TYPE II[SNOMED: 178572616] Diagnosis: ESSENTIAL HYPERTENSION[SNOMED: 20506575] Diagnosis: EDEMA[ICD9: 782.3] Rika Motta MD [facility] CPT-4: 25228 12/20/2012 ([id number]) 49041 EST. PATIENT, LEVEL III Diagnosis: Acute bronchitis[ICD9: 466.0] Diagnosis: COUGH[ICD9: 786.2] Tessie Motta MD [facility] CPT-4: 18718 10/29/2012 ([id number]) 44757 EST. PATIENT, LEVEL IV Diagnosis: ESSENTIAL HYPERTENSION[SNOMED: 78170013] Diagnosis: DIABETES TYPE II[SNOMED: 055581050] Diagnosis: HYPOTHYROIDISM[ICD9: 244.9] Tessie Motta MD [facility] CPT- 4: 12536 09/06/2012 ([id number]) 92873 EST. PATIENT, LEVEL IV Diagnosis: DIABETES TYPE II[SNOMED: 533284490] Diagnosis: ESSENTIAL HYPERTENSION[SNOMED: 94032401] Diagnosis: Diarrhea[ICD9: 787.91] Tessie Motta MD, [facility] CPT-4: 93142 08/23/2012 ([id number]) 52155 EST. PATIENT, LEVEL III Diagnosis: ESSENTIAL HYPERTENSION[SNOMED: 33693784] Diagnosis: Gastroenteritis[ICD9: 558.9] Rika Motta MD [facility] CPT-4: 16814 08/13/2012 ([id number]) 17975 EST. PATIENT, LEVEL IV Diagnosis: Diarrhea[ICD9: 787.91] Diagnosis: ESSENTIAL HYPERTENSION[SNOMED: 34683080] Diagnosis: DM W/O COMPLICATION TYPE II, UNCONTROLLED[SNOMED: 17818682] Rika Motta MD [facility] CPT-4: 14255 08/07/2012 ([id number]) 33978 EST. PATIENT, LEVEL III Diagnosis: Acute sinusitis[ICD9: 461.9] Diagnosis: Thrush[ICD9: 112.0] Rika Motta MD [facility] CPT-4: 48827 07/06/2012 ([id number]) 97666 EST. PATIENT, LEVEL IV Diagnosis: ESSENTIAL HYPERTENSION[SNOMED: 26310799] Diagnosis: DIABETES TYPE II[SNOMED: 351680425] Tessie Motta MD [facility] CPT-4: 89896 06/07/2012 ([id number]) 66801 EST. PATIENT, LEVEL IV Diagnosis: ESSENTIAL HYPERTENSION[SNOMED: 51169203] Diagnosis: ACUTE SINUSITIS[ICD9: 461.9] Diagnosis: Labial cyst[ICD9: 624.8] Tessie Motta MD [facility] CPT-4: 84185 05/28/2012 ([id number]) 43248 EST. PATIENT, LEVEL IV Diagnosis: ESSENTIAL HYPERTENSION[SNOMED: 55039669] Diagnosis: EDEMA[ICD9: 782.3] Tessie Motta MD [facility] CPT-4: 80256 05/17/2012 ([id number]) 93791 EST. PATIENT, LEVEL IV Diagnosis: EDEMA[ICD9: 782.3] Diagnosis: ESSENTIAL HYPERTENSION[SNOMED: 26855688] Diagnosis: Diarrhea[ICD9: 787.91] Diagnosis: ALLERGIC RHINITIS[ICD9: 477.9] Tessie Motta MD [facility] CPT- 4: 30004 05/02/2012 ([id number]) 44486 EST. PATIENT, LEVEL IV Diagnosis: ACUTE SINUSITIS[ICD9: 461.9] Diagnosis: ESSENTIAL HYPERTENSION[SNOMED: 54736587] Diagnosis: ALLERGIC RHINITIS[ICD9: 477.9] Tessie Motta MD [facility] CPT- 4: 37705 04/10/2012 ([id number]) 70222 EST. PATIENT, LEVEL IV Diagnosis: ESSENTIAL HYPERTENSION[SNOMED: 71755037] Diagnosis: Foreign body in foot or toe[ICD9: 917.6] Diagnosis: EDEMA[ICD9: 782.3] Tessie Motta MD [facility] CPT-4: 82673 02/27/2012 ([id number]) 43014 EST. PATIENT, LEVEL IV Diagnosis: CELLULITIS OF FOOT[ICD9: 682.7] Diagnosis: DIABETES TYPE II[SNOMED: 425021601] Diagnosis: EDEMA[ICD9: 782.3] Tessie Motta MD [facility] CPT-4: 37066 02/15/2012 ([id number]) 94442 EST. PATIENT, LEVEL IV Diagnosis: EDEMA[ICD9: 782.3] Diagnosis: ESSENTIAL HYPERTENSION[SNOMED: 92100123] Diagnosis: ACUTE SINUSITIS[ICD9: 461.9] Diagnosis: Dysuria[ICD9: 788.1] Tessie Motta MD [facility] CPT-4: 15535 02/01/2012 ([id number]) 87104 EST. PATIENT, LEVEL IV Diagnosis: DIABETES TYPE II[SNOMED: 044674207] Diagnosis: Diverticulitis[ICD9: 562.11] Tessie Motta MD [facility] CPT- 4: 94327 12/14/2011 ([id number]) 09190 EST. PATIENT, LEVEL IV Diagnosis: Nausea vomiting and diarrhea[ICD9: 787.01] Diagnosis: ESSENTIAL HYPERTENSION[SNOMED: 77158425] Diagnosis: DM W/O COMPLICATION TYPE II, UNCONTROLLED[SNOMED: 99206407] Tessie Motta MD [facility] CPT-4: 51886 11/30/2011 ([id number]) 96220 EST. PATIENT, LEVEL IV Diagnosis: ESSENTIAL HYPERTENSION[SNOMED: 35332378] Diagnosis: DIABETES TYPE II[SNOMED: 234852215] Diagnosis: COUGH[ICD9: 786.2] Tessie Motta MD [facility] CPT-4: 59740 11/17/2011 ([id number]) Patient admitted to the hospital from clinic (NO CHARGE) Diagnosis: Tachycardia[ICD9: 785.0] Diagnosis: Dyspnea[ICD9: 786.09] Diagnosis: Wheezing[ICD9: 786.07] Diagnosis: FALL AGAINST OBJECT[ICD9: E888.1] Diagnosis: ANXIETY STATE[ICD9: 300.00] Diagnosis: ESSENTIAL HYPERTENSION[SNOMED: 43396732] Diagnosis: Chronic depression[ICD9: 311] Diagnosis: Diabetes mellitus type 2, uncontrolled[SNOMED: 90129957] Tessie Motta MD, [facility] CPT-4: 50427C 11/03/2011 ([id number]) 74756 EST. PATIENT, LEVEL IV Diagnosis: DIABETES TYPE II[SNOMED: 216271841] Diagnosis: ANXIETY STATE[ICD9: 300.00] Diagnosis: DEPRESSIVE DISORDER NEC[ICD9: 311] Diagnosis: Ulcer of toe[ICD9: 707.15] Tessie Motta MD, [facility] CPT- 4: 77710 10/24/2011 ([id number]) 49345 EST. PATIENT, LEVEL IV Diagnosis: EDEMA[ICD9: 782.3] Diagnosis: ESSENTIAL HYPERTENSION[SNOMED: 34132718] Diagnosis: ANXIETY STATE[ICD9: 300.00] Tessie Motta MD, [facility] CPT- 4: 16629 09/26/2011 87186 EST. PATIENT, LEVEL IV Diagnosis: EDEMA[ICD9: 782.3] Diagnosis: ESSENTIAL HYPERTENSION[SNOMED: 71229377] Rika Motta MD, [facility] CPT-4: 82488 09/20/2011 ([id number]) 19341 EST. PATIENT, LEVEL IV Diagnosis: ACUTE SINUSITIS[ICD9: 461.9] Diagnosis: Allergic rhinitis[ICD9: 477.9] Diagnosis: Cough[ICD9: 786.2] Tessie Motta MD, [facility] CPT-4: 28465 09/01/2011 ([id number]) 25984 EST. PATIENT, LEVEL IV Diagnosis: Chronic sinusitis[ICD9: 473.9] Diagnosis: Anxiety, generalized[ICD9: 300.02] Tessie Motta MD, [facility] CPT-4: 78798 08/15/2011 83453 EST. PATIENT, LEVEL IV Diagnosis: ACUTE SINUSITIS[ICD9: 461.9] Diagnosis: Tachycardia[ICD9: 785.0] Diagnosis: Anxiety[ICD9: 300.00] Diagnosis: Dehydration[ICD9: 276.51] Diagnosis: Sciatica[ICD9: 724.3] Tessie Motta MD, [facility] CPT-4: 73214 08/09/2011 96047 EST. PATIENT, LEVEL IV Diagnosis: DIABETES TYPE II[SNOMED: 762861881] Diagnosis: Sciatica[ICD9: 724.3] Diagnosis: Yeast infection[ICD9: 112.9] Tessie Motta MD, [facility] CPT- 4: 99152 08/01/2011 ([id number]) 90787 EST. PATIENT, LEVEL IV Diagnosis: DIABETES TYPE II[SNOMED: 209472070] Diagnosis: ACUTE MAXILLARY SINUSITIS[ICD9: 461.0] Diagnosis: Fibromyalgia[ICD9: 729.1] Tessie Motta MD, [facility] CPT-4: 05535 06/20/2011 32166 EST. PATIENT, LEVEL IV Diagnosis: ESSENTIAL HYPERTENSION[SNOMED: 50160061] Diagnosis: DIABETES TYPE II[SNOMED: 918965696] Diagnosis: ACUTE MAXILLARY SINUSITIS[ICD9: 461.0] Tessie Motta MD, [facility] CPT-4: 65941 04/18/2011 Plan of Care Planned Activity Notes [...] of insulin -patient and verbalized understanding. 04/27/2018 Patient Education: Patient Medication Summary Completed 04/27/2018 Appointment: Rika Bello WPtel: [address] [place], [place] [phone] (15 min) Moderate 04/24/2018 Appointment: Nurse Visit [...] and return Monday for removal of IPRO Fxccquz-gbvttiivqn-tb changes in medications-recommend counseling-patient refuses Weakness-patient is deconditioned-refuses PT -recommend patient start walking more 04/10/2018 Appointment: Rika Bello WPtel: [phone] (15 min) Moderate 04/10/2018 Patient Education: Patient Medication Summary Completed 04/10/2018 Appointment: Arlette Skelton WPtel: [phone] [id number] (15 min) Moderate 03/21/2018 Appointment: Rika Bello WPtel: [phone] [phone] (30 min) Complex 03/20/2018 Visit Plan: Hypertension [...] as directed 03/12/2018 Appointment: Rika Bello WPtel: [phone] [phone] (15 min) Moderate 03/12/2018 Patient Education: Patient Medication Summary Completed 03/12/2018 Patient Education: Back Pain Completed 03/12/2018 Appointment: Rika Bello WPtel: [phone] (30 min) Complex 03/08/2018 Appointment: Lab Draw [...] next refill 02/20/2018 Appointment: Rika Bello WPtel: [address] [place], [place] [phone] (15 min) Moderate 02/20/2018 Patient Education: Patient Medication Summary Completed 02/20/2018 Patient Education: Back Pain Completed 02/20/2018 Patient Education: Patient Medication Summary Completed 02/20/2018 Care Plan: Iron Pending 02/20/2018 Appointment: Rika Bello WPtel: [address] [place], [place] [phone] (30 min) Complex 02/19/2018 Appointment: Rika Bello WPtel: [address] [place], [place] [phone] (15 min) Moderate 02/01/2018 Visit Plan: UA negative -no culture indicated 12/14/2017 Appointment: Lab Draw 12/14/2017 Patient Education: Patient Medication Summary Completed 12/14/2017 Visit Plan: Dysuria-urinary incontinence-culture urine HTN- elevated today-monitor at home -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 09/27/2017 Appointment: [facility] [place] (30 min) Complex 09/27/2017 Patient Education: Patient Medication Summary Completed 09/27/2017 Care Plan: CT HEAD/BRAIN W/O DYE INC : 69257-8 Pending 09/27/2017 Visit Plan: DM-patient noncompliant with [...] over- medication. 09/15/2017 Appointment: Rika Bello WPtel: [phone] [phone] [place] (30 min) Complex 09/15/2017 Patient Education: Patient Medication Summary Completed 09/15/2017 Appointment: Ace Rika WPtel: [phone] (30 min) Complex 09/12/2017 Appointment: R[facility]ello [facility]el[phone] (30 min) Complex 09/07/2017 Visit Plan: Hjx-rcrcfdpjhu-vg changes Anemia-check cbc today Dental infection-on clindamycin per Dr Bryant-start probiotics Also needs to monitor blood sugars closely 08/18/2017 Appointment: Rika Bello WPtel: [phone] (30 min) Complex 08/18/2017 Patient Education: Patient [...] not resolve 08/03/2017 Appointment: Rika Bello WPtel: [phone] (30 min) Complex 08/03/2017 Patient Education: [...] symptoms worsen 07/27/2017 Appointment: Rika Bello WPtel: [address] [place], [place] [phone] (30 min) [facility] 07/27/2017 Patient Education: Patient Medication Summary [...] in medications 06/13/2017 Appointment: [phone] (15 min) Moderate 06/13/2017 Patient Education: Patient Medication Summary Completed 06/13/2017 Visit Plan: Dental abscess - will send RX - pt is to keep her appointment with her dentist - pt is to notify clinic if symptoms do not improve, if they worsen, or with any other acute changes, questions, or concerns. 04/21/2017 Appointment: Arlette Skelton [facility]el[phone] (30 min) Complex 04/21/2017 Patient Education: [...] Q HS RESCHEDULE APPT WITH DR YANNA HoRuqstulqf-fuasorskf-ri for bactroban ointment provided and instructed on use ZVE-ltsimfnxvv-gv change in medications Mildly elevated liver enzymes-discussed with Dr motta-suspect due to gabapentin-will monitor levels Gait instability-again recommend patient use walker as well as PT 04/18/2017 Appointment: Rika [facility]ello [facility]el[phone] [place] (30 min) Complex 04/18/2017 Patient Education: [...] become less controlled. Low potassium- check labs GIW-pjdwcvqvnq-hc changes Afib-check digoxin level with labs Abdominal [...] become less controlled. Low potassium- check labs ZNJ-cxbbsejezs-fr changes Afib-check digoxin level with labs Abdominal pain-refill levsin for prn use -call if pain uncontrolled 03/27/2017 Appointment: Rika Bello WPtel: [phone] (30 min) Complex 03/27/2017 Patient Education: Patient Medication Summary Completed 03/27/2017 Appointment: Rika Bello WPtel: [address] [place], [place] [phone] (30 min) Complex 03/24/2017 Visit Plan: Hypertension - well controlled - continue with current medications, continue with no added salt diet. Pt has been encouraged to exercise daily. The pt has been advised to call the office if there are any acute concerns about change in blood pressure readings at home. DM-uncontrolled- discussed strict diet and exercise with patient Low tvbvkjuzh-sctjuctz-tcrnpokf to monitor Abd wtom-olgzuwmr-yx changes 02/27/2017 Appointment: Rika Bello WPtel: [phone] (30 min) Complex 02/27/2017 Patient Education: [...] this regimen. 02/21/2017 Appointment: Rika Bello WPtel: [phone] (30 min) Complex 02/21/2017 Patient Education: Patient Medication Summary Completed 02/21/2017 Appointment: Rika Bello WPtel: [address] [place], [place] [phone] [place] (30 min) Complex 02/20/2017 Visit Plan: [...] labs on Monday02/17/2017 Appointment: Rika Bello WPtel: [address] [place], [place] [phone] (30 min) Complex 02/17/2017 Patient Education: Patient Medication Summary Completed 02/17/2017 Visit Plan: COPD-recent hospitalization with pneumonia- symptoms improved-discussed continuous oxygen use at home-appt with Dr Odonnell tomorrow Afib-check digoxin level-patient just finished zpack Diarrhea-continue probiotics-check stool if diarrhea persists DM-bring log to next appt 02/13/2017 Appointment: Rika Bello WPtel: [phone] [place] (30 min) Complex 02/13/2017 Patient Education: Patient Medication Summary Completed 02/13/2017 Patient Education: Hypertension Completed 02/13/2017 Visit Plan: DM-very uncontrolled-refer to Dr Raines for management RIght shoulder and arm pain-fell 5 days ago-xray shoulder and arm Chronic sinusitis-RX for Dr Cervantes's compound gentamicin nasal spray 01/30/2017 Appointment: Rika Bello WPtel: [phone] (30 min) Complex 01/30/2017 Patient Education: Patient Medication Summary Completed 01/30/2017 Care Plan: Referral Order SNOMED-CT : 317720997 Pending 01/30/2017 Visit Plan: Hypertension - well [...] every night DM-check Hgb A1C Hypothyroidism-check level Hrnwtvh-rfrbemawqt-ppk well controlled- increase cymbalta-recommend counseling 01/16/2017 Appointment: Rika Bello WPtel: [phone] (30 min) Complex 01/16/2017 Patient Education: Patient Medication Summary Completed 01/16/2017 Appointment: Rika Bello WPtel: [phone] (30 min) Complex 01/10/2017 Visit Plan: Sinusitis [...] or concerns. 12/13/2016 Appointment: Arlette Skelton WPtel: [facility] (30 min) Complex 12/13/2016 Patient Education: [...] completely heal. 11/11/2016 Appointment: Rika Bello WPtel: [phone] (30 min) Complex 11/11/2016 Patient Education: Patient Medication Summary Completed 11/11/2016 Care Plan: BMI Above normal followup SELF-MGMT EDUC & TRAIN 1 PT Pending 2016 Appointment: Rika Bello WPtel: [phone] (30 min) Complex 11/08/2016 Visit Plan: Shingles-rash scabbed-no further treatment indicated-patient to call if pain uncontrolled N/V-check labs including UA DM- check labs today Thrush-RX for nystatin 10/28/2016 Appointment: Rika Bello WPtel: [address] [place], [place] [phone] (30 min) Complex 10/28/2016 Patient Education: Patient Medication Summary Completed 10/28/2016 Patient Education: Obesity Completed 10/28/2016 Appointment: Rika Bello WPtel: [address] [place], [place] [phone] (30 min) Complex 10/25/2016 Appointment: Lab Draw 10/21/2016 Patient Education: Patient Medication Summary Completed 10/21/2016 Visit Plan: Right knee pain-patient to schedule appt with Dr Allison Garcia-right arm-concerned for shingles-RX for acyclovir provided and instructed on use-call if symptoms do not resolve or if any worse. 10/13/2016 Appointment: Rika Bello WPtel: [address] [place], [place] [phone] (30 min) Complex 10/13/2016 Patient Education: Patient Medication Summary Completed 10/13/2016 Appointment: Rika Bello WPtel: [address] [place], [place] [phone] (30 min) Complex 10/11/2016 Appointment: Rika Bello WPtel: [address] [place] [phone] [facility] - Annual Wellness Visit [...] as directed. 09/23/2016 Appointment: Rika Bello WPtel: [address] [place] [phone] [place] [address] (15 min) Moderate 09/23/2016 Patient Education: Patient [...] 09/13/2016 Care Plan: Referral Order SNOMED-CT : [id number] Pending 09/13/2016 Appointment: Rika Bello WPtel: [address] [place], [place] [phone] (30 min) Complex 09/09/2016 Appointment: Rika Bello WPtel: [address] [place], [place] [phone] (30 min) Complex 09/08/2016 Visit Plan: Hypertension - well controlled - continue with current medications, continue with no added salt diet. Pt has been encouraged to exercise daily. The pt has been advised to call the office if there are any acute concerns about change in blood pressure readings at home. Yeast infection -improved-continue nystatin powder Hypothyroidism-check labs Anemia-check CBC 08/09/2016 Appointment: iRka Bello WPtel: [address] [place] [phone] (30 min) Complex 08/09/2016 Patient Education: Patient [...] control. Yeast infection -rx for nystatin powder MSPB-kowgtvoqa-ohckcv pneumonia -afib-patient is oxygen dependent due to severely compromised pulmonary and cardiac systems-will send orders to [facility] to continue oxygen 07/26/2016 [...] control. Yeast infection -rx for nystatin powder PBSZ-bwhsotwsm-awlmzu pneumonia -afib-patient is oxygen dependent due to severely compromised pulmonary and cardiac systems-will send orders to [facility] to continue oxygen 07/26/2016 [...] control. Yeast infection -rx for nystatin powder UMMN-bvctvuigr-flupvu pneumonia -afib-patient is oxygen dependent due to severely compromised pulmonary and cardiac systems-will send orders to [facility] to continue oxygen 07/26/2016 Appointment: Rika Bello WPtel: [phone] [phone] (30 min) Complex 07/26/2016 Patient Education: Patient Medication Summary Completed 07/26/2016 Appointment: Rika Bello WPtel: [phone] [phone] [place] (30 min) Complex 07/22/2016 Appointment: Rika Bello WPtel: 1015 [phone] (30 min) Complex 07/18/2016 Appointment: Rika Bello WPtel: 1015 [phone] (30 min) Complex 07/01/2016 Appointment: Lab Draw 06/24/2016 Patient Education: Patient Medication Summary Completed 06/24/2016 Appointment: Rika Bello WPtel: [phone] [phone] [place] (30 min) Complex 2016 Visit Plan: [...] Obesity Completed 05/24/2016 Appointment: Rika Bello WPtel: [phone] (30 min) Complex 05/17/2016 Visit Plan: Vaginal [...] glucose control. 04/19/2016 Appointment: Rika Bello WPtel: [phone] (30 min) Complex 04/19/2016 Patient Education: Patient Medication Summary Completed 04/19/2016 Patient Education: Obesity Completed 04/19/2016 Appointment: Rika Bello WPtel: [phone] (30 min) Complex 04/18/2016 Visit Plan: Diabetes [...] to allow for greater blood glucose control. RLU-fsamtuarup-ff changes in medications at this time. Dysuria-UA negative-needs pelvic exam due to pt c/o vaginal discharge 04/11/2016 Appointment: Rika Bello WPtel: [phone] (30 min) Complex 04/11/2016 Patient Education: Patient Medication Summary Completed 04/11/2016 Patient Education: Obesity Completed 04/11/2016 Appointment: BelloRika WPtel: [phone] (30 min) Complex 04/08/2016 Visit Plan: Chronic [...] attempt to reduce peripheral edema. 03/11/2016 Appointment: Ace Rika [facility]Ptel[phone] (30 min) Complex 03/11/2016 Patient Education: Patient [...] use 02/26/2016 Appointment: Rika Bello WPtel: 101[address] [phone] (30 min) Complex 02/26/2016 Patient Education: Patient Medication Summary Completed 02/26/2016 Appointment: Rika Bello [facility]Ptel: [phone] (30 min) Complex 02/25/2016 Appointment: Rika Bello WPtel: 1015 [phone] (30 min) Complex 02/23/2016 Appointment: Lab Draw [...] mold 02/02/2016 Appointment: Rika Bello WPtel: 1015 [phone] [place] (30 min) Complex 02/02/2016 Patient Education: Patient Medication Summary Completed 02/02/2016 Appointment: Tessie Motta WPtel: 1015 [facility] [place] (15 min) Moderate 01/21/2016 Appointment: Rika Bello WPtel: 1015 [phone] (30 min) Complex 01/14/2016 Visit Plan: Hypertension [...] Patient Medication Summary Completed 12/17/2015 Visit Plan: Jfgngfx-ietjpmrzn-dthi head injury on 12/05-did not go to ER-patient sent for STAT CT scan of head-schedule appt with Dr [place] Adrenal insufficiency-patient suddenly stopped prednisone-instructed patient to restart and taper prednisone as directed Rib zqwi-xjbhd-nztpor fall-xray ribs 12/08/2015 Appointment: Rika Bello WPtel: [phone] [phone] [place] (15 min) Moderate 12/08/2015 Appointment: Rika Bello WPtel: 1015 [phone] [place] (30 min) Complex 12/08/2015 Patient Education: Patient Medication Summary Completed 12/08/2015 Care Plan: COMPLETE CBC AUTOMATED LOINC : 57089-1 Pending 12/08/2015 Visit Plan: Hypertension - well [...] 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 09/29/2015 Appointment: Rika Bello WPtel: [phone] [facility] - Welcome to Medicare visit 09/29/2015 Patient Education: Patient Medication Summary Completed 09/29/2015 Patient Education: Obesity Completed 09/29/2015 Care Plan: Referral Order SNOMED-CT : [id number] Pending 09/29/2015 Care Plan: BMI Above normal [...] for weight check. 08/10/2015 Appointment: UDAY - Yoandy to Medicare visit 08/10/2015 Patient Education: Patient [...] Complex 05/05/2015 Appointment: Rika Bello [facility]Ptel: [phone] (30 min) Complex 04/27/2015 Visit Plan: [...] 03/03/2015 Patient Education: Hypertension Completed 03/03/2015 Appointment: Ace Rika WPtel: [phone] [phone] [place] (30 min) Complex 02/24/2015 Appointment: (30 min) Complex 01/29/2015 Appointment: Tessie Motta WPtel: [phone] [facility] (15 min) Moderate 01/22/2015 Visit Plan: Blister of right lower leg-fluids removed with #27 gauze needle and compression dressing applied-refer to wound care for evaluation and management-patient is at high risk of developing large ulcer due to diabetes, noncompliance and poor hygiene. Rash right leg-start oral abx and bactroban as directed Hozhi-vmsgfylevwnu-yfh markie wraps, elevate leg, and again instructed [...] out. 01/01/2015 Appointment: Tessie Motta [facility]Ptel: [facility] [place] (15 min) Moderate 01/01/2015 Patient Education: [...] Care Plan: COMPLETE CBC AUTOMATED LOINC : 74203-9 Ordered 11/04/2014 Care Plan: URINALYSIS NONAUTO W/O SCOPE LOINC : 68476-8 Ordered 11/04/2014 Appointment: Follow up 10/07/2014 Visit Plan: Edema - pt has been advised to elevate legs to prevent dependent edema, compression has been recommended to help to naturally decrease peripheral edema. Diuretic use has been discussed and pt has been instructed in appropriate use of such medication as necessary to further attempt to reduce peripheral edema. Hexhjzpkpm-vktkyrvf-oj change in treatment- continue compression hose-decrease salt/sodium in diet-call if symptoms worsen or do not resolve Avliejrgk-xhqeowe-uehjcxrn nasonex to twice daily as directed 09/08/2014 [...] worsen. 06/12/2014 Appointment: Rika Bello WPtel: 101[phone] Follow up 06/12/2014 Patient Education: Patient Medication Summary Completed 06/12/2014 Patient Education: .Amazing charts Exercise for Sciatica Completed 06/12/2014 Care Plan: COMPLETE CBC AUTOMATED LOINC : 59394-3 Ordered 06/12/2014 Visit Plan: Cellulitis - continue [...] Completed 05/26/2014 Appointment: Tessie Motta WPtel: [facility] Lab Draw 04/21/2014 Patient Education: [...] readings at home. I HAVE AGAIN ADVISED OMNAE NOT TO LET HER PILLS RUN OUT-SHE [...] home. 02/13/2014 Appointment: Tessie Motta WPtel: [phone] [facility] Follow up 02/13/2014 Patient Education: Patient Medication [...] daily. 01/27/2014 Appointment: Tessie Motta WPtel: [phone] [facility] Follow up 01/27/2014 Patient Education: Patient Medication Summary Completed 01/27/2014 Appointment: Rika Bello WPtel: [phone] [phone] Follow up 01/02/2014 Visit Plan: Open wound of bxt-tcnsuamr-yyzkfhzr with dressing changes as directed-call for increase [...] Summary Completed 12/26/2013 Appointment: Tessie Motta WPtel: [phone] [facility] Follow up 12/24/2013 Visit Plan: Open wound of right leg-debrided today in the office-instructed on wound care-follow up as directed. Call with any questions, concerns, or worsening symptoms. Culture of wound today in the office-RX for abx sent to patient's pharmacy and instructed on use. Patient verbalized understanding of plan. 12/12/2013 Appointment: Rika Bello WPtel: [phone] [phone] [place] Other 12/12/2013 Patient Education: Patient Medication Summary Completed 12/12/2013 Appointment: Tessie Motta [facility]Ptel: [phone] Follow up 11/20/2013 Visit Plan: negative ua 11/18/2013 Appointment: Tessie Motta WPtel: [facility] Lab Draw 11/18/2013 Patient Education: Patient Medication [...] Completed 11/14/2013 Visit Plan: Open wound right eby-naewgp-sxkj if opens up Edema - pt has been advised to elevate legs to prevent dependent edema, compression has been recommended to help to naturally decrease peripheral edema. Diuretic use has been discussed and pt has been instructed in appropriate use of such medication as necessary to further attempt to reduce peripheral edema. 10/21/2013 Appointment: Rika Bello WPtel: [address] [place], [place] [phone] Follow up 10/21/2013 Patient Education: Patient Medication Summary Completed 10/21/2013 Appointment: Rika Bello WPtel: [phone] Follow up 10/17/2013 Appointment: Tessie Motta WPtel: [address] [place], [place] [phone] Follow up 10/10/2013 Visit Plan: Hypertension - [...] for pain. 10/03/2013 Appointment: Rika Bello WPtel: [address] [place], [place] [phone] Follow up 10/03/2013 Patient Education: Patient Medication [...] of plan. 09/23/2013 Appointment: Tessie Motta WPtel: [address] [place], [place] [phone] [place] Nurse Visit 09/23/2013 Patient Education: Patient [...] 2 WEEKS. 09/20/2013 Appointment: Rika Bello WPtel: [address] [place] [address] Follow up 09/20/2013 Patient Education: Patient Medication Summary Completed 09/20/2013 Patient Education: Hypertension Completed 09/20/2013 Appointment: Tessie Motta WPtel: [address] [place] [address] Follow up 09/16/2013 Visit Plan: Edema - [...] verbalized understanding. 09/10/2013 Appointment: Rika Bello WPtel: [facility] [place] [phone] Other 09/10/2013 Patient Education: Patient Medication Summary Completed 09/10/2013 Appointment: Rika Bello WPtel: [phone] [facility] [place] [address] Follow up 09/02/2013 Visit Plan: Diabetes Mellitus [...] peripheral edema. 08/19/2013 Appointment: [facility]ello [facility]Ptel[phone] Other 08/19/2013 Patient Education: Patient Medication Summary [...] as scheduled 08/01/2013 Appointment: Rika Bello WPtel: [address] [place], [place] [phone] [place] [address] Follow up 08/01/2013 Patient Education: Patient Medication Summary Completed 08/01/2013 Appointment: Rika Bello WPtel: [address] [place], [place] [phone] Follow up 07/25/2013 Appointment: Tessie Motta WPtel: [address] [place], [place] [phone] Follow up 07/25/2013 Visit Plan: Bister of foot-dressing changes discussed with patient and instructed her to keep her foot clean and dry-STOP WEARING FLIP FLOPS as they are causing friction over blistered area. Keep follow up appointment as scheduled. Call for redness, drainage or other s/s of infection. 07/19/2013 Appointment: Rika Bello WPtel: [address] [place], [place] [phone] Other 07/19/2013 Patient Education: Patient Medication Summary [...] peripheral edema. 07/15/2013 Appointment: Rika Bello WPtel: [address] [place], [place] [phone] [place] [address] Other 07/15/2013 Patient Education: Patient Medication Summary Completed 07/15/2013 Patient Education: Hypertension Completed 07/15/2013 Appointment: Rika Bello WPtel: [address] [place] [address] Follow up 07/01/2013 Appointment: Rika Bello WPtel: [address] [place], [place] [phone] [place] [address] Lab Draw 06/28/2013 Patient Education: Patient Medication [...] 900mg tid. 06/27/2013 Appointment: Tessie Motta WPtel: [address] [place], [place] [phone] Other 06/27/2013 Patient Education: Patient Medication Summary Completed 06/27/2013 Appointment: Tessie Motta WPtel: [address] [place], [place] [phone] Other 06/24/2013 Visit Plan: Diabetes Mellitus - [...] AFTERNOON. 06/10/2013 Appointment: Tess[facility]ta [facility]Ptel: [phone] Follow up 06/10/2013 Patient Education: Patient Medication Summary Completed 06/10/2013 Appointment: Tessie Motta WPtel: [phone] [facility] [place] Follow up 06/06/2013 Visit Plan: Sinusitis [...] acutely worsen. 05/07/2013 Appointment: Tessie Motta WPtel: [address] [place], [place] [phone] Follow up 05/07/2013 Patient Education: Patient Medication Summary Completed 05/07/2013 Appointment: Tessie Motta WPtel: [address] [place], [place] [phone] Follow up 04/30/2013 Visit Plan: Edema - [...] acute changes. 04/16/2013 Appointment: Tessie Motta WPtel: [address] [place], [place] [phone] Follow up 04/16/2013 Patient Education: Patient Medication Summary Completed 04/16/2013 Appointment: Tessie Motta WPtel: [address] [place], [place] [phone] Follow up 04/04/2013 Visit Plan: Lumbago-continue physical [...] peripheral edema. 03/21/2013 Appointment: Rika Bello WPtel: [facility] [place] [address] Follow up 03/21/2013 Patient Education: Patient Medication Summary Completed 03/21/2013 Appointment: Tessie Motta WPtel: [address] [place] [address] Follow up 03/20/2013 Appointment: Tessie Motta WPtel: [address] [place] [address] Follow up 03/05/2013 Visit Plan: Edema-significantly improved- [...] less controlled. 02/12/2013 Appointment: Rika Bello WPtel: [facility] [place] [address] follow up 02/12/2013 Patient Education: Patient Medication [...] Dyspnea - recommended pt to see new systems protection technician when he gets to [facility] for further evaluation and work-up. 02/04/2013 Appointment: Tessie Motta WPtel: [facility] Follow up 02/04/2013 Patient Education: Patient Medication [...] not improve. 01/17/2013 Appointment: Rika Bello WPtel: [phone] Follow up 01/17/2013 Patient Education: Patient Medication Summary Completed 01/17/2013 Patient Education: Hypertension Completed 01/17/2013 Appointment: Tessie Motta WPtel: [facility] Follow up 01/16/2013 Appointment: Tessie Motta WPtel: [address] [place], [place] [phone] Follow up 01/10/2013 Appointment: Rika Bello WPtel: [address] [place], [place] [address] Lab Draw 01/01/2013 Patient Education: Patient Medication [...] Hypothyroidism-check labs 12/31/2012 Appointment: Rika Bello WPtel: [phone] [place] Follow up 12/31/2012 Appointment: Rika Bello WPtel: [phone] Sick 12/31/2012 Patient Education: Patient Medication Summary [...] Check labs. 12/20/2012 Appointment: Rika Bello WPtel: [phone] Sick 12/20/2012 Patient Education: Patient Medication Summary Completed 12/20/2012 Patient Education: Hypertension Completed 12/20/2012 Appointment: Tessie Motta WPtel: [phone] [facility] Lab Draw 11/05/2012 Patient Education: Patient Medication Summary Completed 11/05/2012 Visit Plan: Bronchitis - acute case of bronchitis identified. Pt has been given antibiotics, breathing treatments as appropriate, and pt has been instructed to call if symptoms are not improved, or if symptoms acutely worsen. 10/29/2012 Appointment: Tessie Motta WPtel: [facility] Sick 10/29/2012 Patient Education: Patient Medication Summary Completed 10/29/2012 Visit Plan: Joint Injection-left SI joint - Pt was given post - injection instructions. The pt has been advised to use antiinflammatories post injection today, ice to the injected site, call if redness, warmth, or increased pain occurs at the site of injection. 09/21/2012 [facility]ment[phone] Follow up 09/21/2012 Patient Education: Patient Medication [...] of control. 09/06/2012 Appointment: Tessie Motta WPtel: [phone] [facility] Follow up 09/06/2012 Patient Education: Patient Medication [...] readings are starting to become less controlled. Oygxgasw-ezmezlmt-knvsukvx probiotic-continue to hold metformin and repeat labs before appt in 2 weeks. Call for abd pain, worsening diarrhea, or other concerns. 08/23/2012 App[facility]ment: [phone] [facility] 08/23/2012 Patient Education: [...] OF PLAN. 08/13/2012 App[facility]ment: [phone] Follow up 08/13/2012 Patient Education: Patient Medication [...] acute concerns. 08/07/2012 Appointment: [facility]ello [facility]Ptel[phone] [place] Other 08/07/2012 Patient Education: Patient Medication Summary Completed 08/07/2012 Patient Education: Hypertension Completed 08/07/2012 Visit Plan: UA-sent for culture 07/19/2012 Appointment: [facility]ello [facility]Ptel[phone] Lab Draw 07/19/2012 Patient Education: Patient Medication [...] directed 07/06/2012 Appointment: [phone] S[facility] 07/06/2012 Patient Education: Patient Medication [...] today 06/07/2012 Appointment: Tessie Motta WPtel: [phone] [facility] Follow up 06/07/2012 Appointment: [facility]ta [facility]Ptel[facility] Follow up 06/07/2012 Patient Education: Patient Medication [...] days. 05/28/2012 Appointment: [phone] Follow up 05/28/2012 Patient Education: Patient [...] edema. 05/17/2012 Appointment: [phone] [facility] Follow UP 05/17/2012 Patient Education: Patient Medication [...] office 05/02/2012 Appointment: [facility]el[phone] Follow up 05/02/2012 Patient Education: Patient Medication Summary Completed 05/02/2012 Patient Education: Hypertension Completed 05/02/2012 Appointment: [phone] Follow up 04/25/2012 Visit Plan: [...] concerns. 04/10/2012 Appointment: [phone] Follow up 04/10/2012 Patient Education: Patient [...] on Monday02/27/2012 Appointment: Rika Bello WPtel: [phone] [phone] [place] Follow up 02/27/2012 Patient Education: Patient Medication Summary Completed 02/27/2012 Patient Education: High Blood Pressure: Essential Hypertension Completed 2011 Visit Plan: Celllulitis of foot-suspect foreign body-plan to xray today at the [facility] and will start patient on abx-culture [...] thighs. 02/15/2012 Appointment: Rika Bello WPtel: [phone] [phone] [place] Follow up 02/15/2012 Patient Education: Patient [...] toes to thighs. RX sent to patient's [facility]. Chest xray at the hospital [...] urine. 02/01/2012 Appointment: Rika Bello WPtel: [phone] [phone] Other 02/01/2012 Patient Education: [...] buttocks 12/14/2011 Appointment: Tessie Motta WPtel: [phone] [facility] Other 12/14/2011 Patient Education: Patient Medication Summary Completed 12/14/2011 Appointment: Tessie Motta WPtel: [phone] [facility] Follow up 12/08/2011 Visit Plan: N/V/D - [...] controlled. 11/30/2011 Appointment: [facility]Ptel[phone] Other 11/30/2011 Patient Education: Patient Medication Summary [...] back pain. 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 Ulcer of toe - continue with topical antibiotics as previously directed, return to clinic as previously directed, call for acute change in symptoms, worsening redness, warmth, discharge. 11/03/2011 Appointment: Tessie Motta WPtel: [phone] [facility] Other 11/03/2011 Patient Education: Patient Medication Summary [...] discharge. 10/24/2011 Appointment: Tessie Motta WPtel: [phone] [facility] Other 10/24/2011 Patient Education: Patient Medication Summary [...] with lymphoma. 09/26/2011 Appointment: Rika Bello WPtel: [phone] Other 09/26/2011 Patient Education: Patient Medication Summary [...] Hypertension Completed 2011 Appointment: Tessie Motta WPtel: [facility]66[facility] Other 09/05/2011 Visit Plan: Sinusitis - Pt [...] the medication. 09/01/2011 Appointment: Tessie Motta WPtel: [phone] Other 09/01/2011 Patient Education: Patient Medication Summary Completed 09/01/2011 Visit Plan: Sinusitis - continue with ciprofloxacin and start on corcidin HBP. Anxiety - start the xanax 0.5mg 1/2 pill twice daily. 08/15/2011 Appointment: Tessie Motta WPtel: [facility] [place] [address] [place] Other 08/15/2011 Appointment: Tessie Motta WPtel: [facility] [address] Other 08/15/2011 Patient Education: Patient Medication Summary [...] Plan for demerol injection today at the [facility]. 08/09/2011 Appointment: Rika Bello WPtel: [address] [place] [address] Other 08/09/2011 Patient Education: Patient Medication Summary [...] not resolve 08/01/2011 Appointment: Rika Bello WPtel: [address] [place] [address] Other 08/01/2011 Patient Education: Patient Medication Summary Completed 08/01/2011 Appointment: Rika Bello WPtel: [address] [place] [address] Other 07/26/2011 Appointment: Tessie Motta WPtel: [address] [place], [place] [address] Other 07/18/2011 Visit Plan: Diabetes Mellitus - [...] sparingly. 06/20/2011 Appointment: Tessie Motta WPtel: [phone] [facility] Other 06/20/2011 Patient Education: Patient Medication [...] month. 04/18/2011 Appointment: Tessie Motta WPtel: [phone] [facility]66[facility] Other 04/18/2011 Patient Education: Patient Medication Summary Completed 04/18/2011 Patient Education: High Blood Pressure: Essential Hypertension Completed 2010 Appointment: Tessie Motta WPtel: [phone] [facility] [place] Other 04/12/2011 Appointment: [facility]ta [facility]Ptel: [phone] [place] Other 02/16/2011 Referral: Matt Pavon HPtel:[phone] [place] Referral Initiated Referral: Yareli Raines Referral [...] - will refer to Dr. Mejia INCREASE LEVEMIR TO 25 UNITS TWICE DAILY-IF [...] and understands the consequences of over-medication. . Sinusitis - Pt has acute infection [...] symptoms are not controlled with the medication. TOUJEO 40 units BID Novolg 10 units [...] other acute changes, questions, or concerns. . Lpm-rqsrsdgyew-yv changes Anemia-check cbc today Dental infection-on clindamycin [...] change in blood pressure readings at home. UK-tndfxbuujmis-uhvlmteoa strict diet and exercise with patient Low ivqtwnsuk-walyyreb-mxntdkgl to monitor Abd wgnf-gotpyghf-pt changes Labs and UA . Hypertension - well [...] HTN-elevated today-monitor at home -follow up with painter and paperhanger apprentice . Diabetes Mellitus - controlled - per [...] allow for greater blood glucose control. . Open wound right kjg-ycngrf-ncwx if opens up Edema - pt has [...] and symptom management sparingly. . Open wound of qfz-chglilkk-cnzltjzc with dressing changes as directed-call for increase [...] readings are starting to become less controlled. Vkmvxgkd-svudyhvz-xbrgqiiu probiotic-continue to hold metformin and repeat labs before appt in 2 weeks. Call for abd pain, worsening diarrhea, or other concerns. Labs today- CBC, CMP, HgbA1C Dr. Shelley [...] for possible injections Rash-under breasts-refill nystatin . UA-sent for culture . Diabetes Mellitus - controlled - per [...] leg-start oral abx and bactroban as directed Mzmlj-kkadxaubizuq-apd markie wraps, elevate leg, and again instructed patient to cut back on pop and salty foods. . Cellulitis - continue with oral antibiotics as previously directed, return to clinic as previously directed, call for acute change in symptoms, worsening redness, warmth, discharge. Cbvmvyaj-ytkrrsqsdets-zichq labs today-patient has been given orders multiple [...] pain occurs at the site of injection. CHECK LABS INCLUDING UA . Shingles-rash scabbed-no [...] to allow for greater blood glucose control. CEO-lejfwofvcx-xp changes in medications at this time. Dysuria-UA [...] DRINKS. REPEAT LABS IN 2 WEEKS. . Chronic sinusitis-rx for gentamicin nasal spray [...] to clinic if symptoms do not resolve Pt has been instructed to stop eating [...] IN MORNING AND 20MG IN THE AFTERNOON. INCREASE WATER INTAKE AND PROTEIN INTAKE CUT [...] attempt to reduce peripheral edema. Dysuria-check UA mammogram appt with Dr Pavon for colonscopy [...] her DOPA paperwork for health care surrogate. FOR CHOLESTEROL - THE NEW DOSE OF [...] based on previous levels of control. . Edema - pt has been advised [...] - uncontrolled - will consult her primary painter and paperhanger apprentice for assistance with control her her heart [...] worsening symptoms. Patient verbalized understanding of plan. STOP THE PROBIOTICS START GAS X DULCOLAX [...] symptoms not improved on this regimen. . Edema--recommend patient be admitted for further [...] with results.Patient and verbalized understanding of plan. NSF-uezdognioyv-tnkti labs-monitor blood pressure and heart rate closely- recommend ER if symptoms do not improve. . Patient presented with acute symptoms of stroke. Accompanied to ER for emergent evaluation. . Sinusitis - Pt has acute infection [...] any acute changes, questions or concerns. . Patient presented with acute symptoms of stroke. Accompanied to ER for emergent evaluation. Toprol XL increased to 100mg po q [...] further attempt to reduce peripheral edema. . Drcccir-nwufqpbrh-kadl head injury on 12/05-did not go to ER-patient sent for STAT CT scan of head-schedule appt with Dr Dyer Adrenal insufficiency-patient suddenly stopped prednisone-instructed patient to restart and taper prednisone as directed Rib wgxc-mflgb-vqrqir fall-xray ribs Holter monitor x 48 hours. You will go to the [facility] on MONDAY, August 14 at 1:30pm to have it put on. You appt here Monday is at 3:30pm. 1 liter Normal saline IV today at the hospital. Continue your blood pressure medications for the next week-except HOLD LISINOPRIL/HCTZ I sent a prescription for cipro and flagyl to [facility]. Start it today. . Sinusitis - [...] for demerol injection today at the hospital. . Bronchitis - will check labs, if [...] Pain uncontrolled-change to percocet as directed. . Diabetes Mellitus - controlled - per [...] Call if symptoms do not show improvement. CONTINUE PROBIOTICS CHECK STOOL FOR CDIFF IF [...] in 1 week, sooner if symptoms worsen START CHECKING BLOOD SUGARS!!!! BRING LOG TO [...] Call sooner if area opens up. . UA negative -no culture indicated . Right knee pain-patient to schedule appt with Dr Allison Garcia-right arm-concerned for shingles-RX for acyclovir provided and instructed on use-call if symptoms do not resolve or if any worse. . Edema - pt has been advised to elevate legs to prevent dependent edema, compression has been recommended to help to naturally decrease peripheral edema. Diuretic use has been discussed and pt has been instructed in appropriate use of such medication as necessary to further attempt to reduce peripheral edema. Ymtabfkitl-kuwefpmz-iz change in treatment-continue compression hose-decrease salt/sodium in diet-call if symptoms worsen or do not resolve Qmsqkibvr-famvmyq-eishgepc nasonex to twice daily as directed pt [...] weeks. Increase victoza to 1.8 units daily. CHECK CMP TODAY . Edema - pt [...] next appointment for review. Patient verbalized understanding. YOU NEED TO BE DOING YOUR DUONEB [...] Q HS RESCHEDULE APPT WITH DR YANNA HoKgioyjtzk-edaawrrxc-bh for bactroban ointment provided and instructed on use LQA-snirhxtsrc-ak change in medications Mildly elevated liver enzymes-discussed with Dr motta-suspect due to gabapentin-will monitor levels Gait instability-again recommend patient use walker as well as PT Check labs-cbc, cmp, hgb a1c. We will [...] pt was given a script for a detention prednisone taper - pt has not started [...] will closely monitor pt. . UA negative Monitor you blood sugars as directed at [...] further attempt to reduce peripheral edema. . Edema-significantly improved- pt has been advised [...] readings are starting to become less controlled. refer to Dr Raines increase levemir to 50 units in the morning and 45 at bedtime x 1 week then 50units BID . DM-very uncontrolled-refer to Dr Raines for management RIght shoulder and arm pain-fell 5 days ago-xray shoulder and arm Chronic sinusitis-RX for Dr Kim compound gentamicin nasal spray Nasal spray- use twice daily, one spray [...] are starting to become less controlled. . Diabetes Mellitus - controlled - per [...] for diflucan-call if symptoms do not resolve Rice balm over the counter for the knee. [...] is to call for acute concerns. . Blister of right leg-drained today in [...] WILL CALL HER WITH THE RESULTS. . Hypertension - well controlled - continue [...] her headaches to improve with treatment . Diabetes Mellitus - Uncontrolled - per [...] control. 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 [...] control. Yeast infection -rx for nystatin powder ASAK-oznbwkfhe-bsbmxb zvqlxikwb-ghdf-gdqnzog is oxygen dependent due to severely compromised pulmonary and cardiac systems-will send orders to [facility] to continue oxygen . [...] control. Yeast infection -rx for nystatin powder OACF-vrsycijdb-yzamrk pikcswqrj-vvjj-oyjmvzd is oxygen dependent due to severely compromised pulmonary and cardiac systems-will send orders to [facility] to continue oxygen . Hypertension - well controlled - continue [...] 6 hours as needed for pain. . DM-patient noncompliant with diet-recommend she start [...] if it does not completely heal. INCREASE LEVEMIR TO 25 UNITS IN THE [...] readings are starting to become less controlled. RETURN MONDAY FOR REMOVAL OF IPRO . [...] and return Monday for removal of IPRO Czqmaua-dfempyyjhx-pj changes in medications-recommend counseling-patient refuses Weakness-patient is deconditioned-refuses PT -recommend patient start walking more . Diabetes Mellitus - Uncontrolled - I [...] up with [facility] as scheduled DR Yareli Raines-you need to reschedule your appt with her -she is a follow up specialist . Diabetes Mellitus - ucontrolled- I [...] to become less controlled. Low potassium-check labs PKQ-oviyrrbxfs-es changes Afib-check digoxin level with labs Abdominal pain-refill levsin for prn use -call if pain uncontrolled DR Yareli Raines-you need to reschedule your appt with her -she is a follow up specialist . Diabetes Mellitus - ucontrolled- I [...] to become less controlled. Low potassium-check labs KBX-ikdsdpjmrp-qo changes Afib-check digoxin level with labs Abdominal pain-refill levsin for prn use -call if pain uncontrolled . Edema - pt has been advised to elevate legs to prevent dependent edema, compression has been recommended to help to naturally decrease peripheral edema. Diuretic use has been discussed and pt has been instructed in appropriate use of such medication as necessary to further attempt to reduce peripheral edema. Dyspnea - recommended pt to see new systems protection technician when he gets to [facility] for further evaluation and work-up. . Continuous glucose monitor placed - pt [...] ER if her symptoms become acutely worsened. . Edema - pt has been advised [...] do not improve or if they worsen. TAKE AN EXTRA 30MG CYMBALTA TO=90MG DAILY CHECK LABS RECOMMEND COUNSELING CALL ABOUT GOING BACK TO PULMONARY REHAB GET APPT WITH PAIN MANAGEMENT FOR INJECTIONS STOP BY [facility] FOR NEW CPAP SUPPLIES . Hypertension - [...] every night DM-check Hgb A1C Hypothyroidism-check level Bjsjsdm-svharijizz-nih well controlled-increase cymbalta-recommend counseling . Diabetes Mellitus [...] she needs to...RESCHEDULE APPT WITH DR RAINES REO-ffqclxuxiz-nx change in medications the dose on 01/01/15 PM - take [...] is stable, monitor for acute changes. . Chronic sinus infections -congestion -will order [...] of insulin -patient and verbalized understanding. . Open wound of right leg-debrided today [...] improved, or if symptoms acutely worsen. . Diabetes Mellitus - Uncontrolled - per [...] TODAY Right knee pain-recent fall-xray right knee INCREASE TOPROL TO 100MG TWICE DAILY Cipro [...] spray. Kenalog injection today in the office d/c LEVEMIR START TOUJEO 10UNITS DAILY AT [...] to patient's pharmacy and instructed on use . Celllulitis of foot-suspect foreign body-plan to [...] take one pill daily. x 1 month. Continue to hold metformin and lipitor Monitor [...] FLUIDS. PATIENT AND VERBALIZED UNDERSTANDING OF PLAN. CPAP NEBULIZER CHECK UA . Hypertension - [...] tired Tachycardia-follow up with Dr Dyer . Sinusitis - Pt has acute infection [...] a prescription for lasix and potassium to [facility]. Take 2 TABLETS of LASIX and [...] toes to thighs. RX sent to patient's [facility]. Chest xray at the hospital [...]
--- OUTSIDE RECORDS SUMMARY | 2018-06-04 16:40 | XMS REPORT | CCD ---
Author Author [facility] Organization [facility] Address [address] [place] [address] Phone Care Team Providers Care Delivery Clerk Name Role Phone Tessie Motta PP Unavailable CCM Unavailable Summary Purpose Interface Exchange Insurance Providers Payer name Policy type / Coverage type Covered republican ID Effective Begin Date Effective End Date WPS Medicare Part B Medicare Part B [id number] 2015 Unknown [facility] Medicare Part B [id number] Unknown Family history Son Diagnosis Age At [...] College Graduate 08/21/[address]: 678562308 Never smoker 02/11/[address]: 539243354 Never drinks alcohol 02/11/2011 Has the patient ever used illegal drugs? Unknown Has never used illegal drugs 02/11/2011 Allergies, Adverse Reactions, Alerts Substance Reaction Codes Entered Date Inactivated Date Status CODEINE RxNorm: 2670 02/11/2011 No Inactive Date Active * NO KNOWN FOOD ALLERGIES Unknown 02/01/2012 No Inactive Date Active cefdinir RxNorm: 33183 08/07/2012 No Inactive Date Active PENICILLINS Unknown [...] Start Date Stop Date Status Fill Instructions digoxin 125 mcg tablet RxNorm: 336173 TAKE 1 TABLET BY MOUTH ONCE DAILY 04/23/2018 No Stop Date Active Lasix 40 mg tablet RxNorm: 819559 TAKE 1 TABLET BY MOUTH TWICE DAILY 04/19/2018 No Stop Date Active Vitamin D2 50,000 unit capsule RxNorm: 7322892 1 Capsule(s) PO QW 04/17/2018 06/15/2018 Active Tessalon Perles 100 mg capsule RxNorm: 097996 Capsule(s) Capsule(s) 2 Capsule(s) PO TID as needed 04/17/2018 No Stop Date Active Xanax 0.5 mg tablet RxNorm: 038074 1 Tablet(s) BID as needed 04/09/2018 05/08/2018 Active Percocet 10 mg-325 mg tablet RxNorm: 6270364 1-2 Tablet(s) PO Q6 PRN 04/05/2018 04/19/2018 Inactive colestipol 1 gram tablet RxNorm: 9972639 TAKE ONE TABLET BY MOUTH TWICE DAILY 03/30/2018 No Stop Date Active nystatin 100,000 unit/mL oral suspension RxNorm: 801627 Unit(s) 5 Milliliter(s) PO QID swish and swallow 03/21/20182017 Inactive Tessalon Perles 100 mg capsule RxNorm: 924309 Capsule(s) Capsule(s) 2 Capsule(s) PO TID as needed 03/21/2018 04/16/2018 Inactive Xanax 0.5 mg tablet RxNorm: 727792 Tablet(s) BID as needed 04/09/2018 Inactive Slow Fe 47.5 mg iron tablet,extended release RxNorm: 1 Tablet(s) PO every other day 03/12/2018 04/10/2018 Inactive Percocet 10 mg-325 mg tablet RxNorm: 2338032 1-2 Tablet(s) PO Q6 PRN 03/12/2018 03/26/2018 Inactive Slow Fe 47.5 mg iron tablet,extended release RxNorm: 1 Tablet(s) PO 3 x week 02/28/2018 03/11/2018 Inactive promethazine 25 mg tablet RxNorm: 750123 Tablet(s) 1 Tablet(s) PO Q6 PRN TAKE NEEDED ONLY!!! 02/21/2018 No Stop Date Active gabapentin 600 mg tablet RxNorm: 032084 Tablet(s) TAKE ONE & ONE-HALF TABLETS BY MOUTH THREE TIMES DAILY 02/20/20182018 Active Cymbalta 60 mg capsule,delayed release RxNorm: 560640 1 Capsule(s) PO daily take with 30mg tablet 02/20/2018 08/18/2018 Active Cymbalta 30 mg capsule,delayed release RxNorm: 276539 Capsule(s) TAKE ONE CAPSULE BY MOUTH ONCE DAILY - TAKE WITH THE 60 MG DOSE FOR A TOTAL OF 90 MG 02/20/2018 08/18/2018 Active Vitamin D2 50,000 unit capsule RxNorm: 3369947 1 Capsule(s) PO QW 02/20/2018 02/19/2018 Inactive Vitamin D2 50,000 unit capsule RxNorm: 6701245 1 Capsule(s) PO QW 02/20/2018 04/16/2018 Inactive mupirocin 2 % topical ointment RxNorm: 455603 APPLY TO SORE IN BELLY BUTTON TWICE DAILY 02/15/2018 No Stop Date Active Percocet 10 mg-325 mg tablet RxNorm: 0964015 1-2 Tablet(s) PO Q6 PRN 02/14/2018 02/28/2018 Inactive Jerry Marley U-300 Insulin 300 unit/mL (1.5 mL) subcutaneous pen RxNorm: 8727303 40 Unit(s) SQ BID per dr raines 02/07/2018 03/08/2018 Inactive nystatin 100,000 unit/mL oral suspension RxNorm: 123159 5 Milliliter(s) PO QID swish and swallow 02/02/2018 02/11/2018 Inactive mupirocin 2 % topical ointment RxNorm: 567177 1 Application TOP BID 01/30/2018 02/08/2018 Inactive Tessalon Perles 100 mg capsule RxNorm: 478256 Capsule(s) 2 Capsule(s) PO TID as needed 01/23/2018 03/20/2018 Inactive Xanax 0.5 mg tablet RxNorm: 491081 Tablet(s) TAKE ONE TABLET BY MOUTH THREE TIMES DAILY NEEDED 01/17/20182017 Inactive ropinirole 1 mg tablet RxNorm: 210783 1 Tablet(s) PO BID 201705/10/2018 Active digoxin 125 mcg tablet RxNorm: 792598 1 Tablet(s) PO daily 04/22/2018 Inactive Percocet 10 mg-325 mg tablet RxNorm: 6083844 1-2 Tablet(s) PO Q6 PRN 01/04/2018 01/18/2018 Inactive Percocet 10 mg-325 mg tablet RxNorm: 0980008 1-2 Tablet(s) PO Q6 PRN 01/02/2018 01/03/2018 Inactive promethazine 25 mg tablet RxNorm: 702697 Tablet(s) 1 Tablet(s) PO Q6 PRN TAKE NEEDED ONLY!!! 01/02/2018 02/20/2018 Inactive pantoprazole 40 mg tablet,delayed release RxNorm: 866505 TAKE 1 TABLET BY MOUTH ONCE DAILY 12/25/2017 No Stop Date Active mupirocin 2 % topical ointment RxNorm: 615785 1 Application TOP BID 12/22/2017 12/31/2017 Inactive fluconazole 150 mg tablet RxNorm: 149637 1 Tablet(s) PO every other day x 3 doses 12/14/2017 12/23/2017 Inactive Percocet 10 mg-325 mg tablet RxNorm: 4385076 1-2 Tablet(s) PO Q6 PRN 12/13/2017 12/27/2017 Inactive hyoscyamine 0.125 mg sublingual tablet RxNorm: 8727494 Tablet(s) 1 Tablet(s) SL TID as needed 12/13/2017 04/11/2018 Inactive nystatin 100,000 unit/gram topical powder RxNorm: 088995 APPLY POWDER TOPICALLY 4 TIMES DAILY 12/11/2017 No Stop Date Active Xanax 0.5 mg tablet RxNorm: 139917 Tablet(s) TAKE ONE TABLET BY MOUTH THREE TIMES DAILY NEEDED 12/06/20172017 Inactive nitrofurantoin 50 mg capsule RxNorm: 341030 1 Capsule(s) PO BID 12/01/2017 11/30/2017 Inactive take probiotic BID x 7 days nitrofurantoin 50 mg capsule RxNorm: 580125 1 Capsule(s) PO BID 12/01/2017 12/07/2017 Inactive take probiotic BID x 7 days mupirocin 2 % topical ointment RxNorm: 276449 1 Application TOP BID 11/27/2017 12/06/2017 Inactive Tessalon Perles 100 mg capsule RxNorm: 560360 Capsule(s) 2 Capsule(s) PO TID as needed 11/21/2017 01/22/2018 Inactive nystatin 100,000 unit/mL oral suspension RxNorm: 886626 5 Milliliter(s) PO QID swish and swallow 11/17/2017 11/26/2017 Inactive nystatin 100,000 unit/mL oral suspension RxNorm: 360907 5 Milliliter(s) PO QID swish and swallow 11/17/2017 11/16/2017 Inactive Toprol XL 100 mg tablet,extended release RxNorm: 855660 TAKE ONE TABLET BY MOUTH TWICE DAILY 11/15/2017 No Stop Date Active ropinirole 1 mg tablet RxNorm: 687840 Tablet(s) BID 11/14/2017 01/10/2018 Inactive Diflucan 150 mg tablet RxNorm: 104989 Tablet(s) every other day 1 Tablet(s) PO every other day 11/14/2017 11/16/2017 Inactive Percocet 10 mg-325 mg tablet RxNorm: 4462665 1-2 Tablet(s) PO Q6 PRN 11/09/2017 11/23/2017 Inactive Flonase Allergy Relief 50 mcg/actuation nasal spray, suspension RxNorm: 0747172 2 Welda NASAL daily 11/06/20172017 Inactive cyclobenzaprine 10 mg tablet RxNorm: 234542 Tablet(s) TABLET(S) 1 TABLET(S) PO NEEDED TAKE 1 TABLET BY MOUTH EVERY 8 HOURS NEEDED 2017 No Stop Date Active Cymbalta 30 mg capsule,delayed release RxNorm: 116350 TAKE ONE CAPSULE BY MOUTH ONCE DAILY - TAKE WITH THE 60 MG DOSE FOR A TOTAL OF 90 MG 02/19/2018 Inactive Lantus Solostar U-100 Insulin 100 unit/mL (3 mL) subcutaneous pen RxNorm: 076034 Unit(s) SQ 35 units QAM and 55 units QHS Unit(s) SQ 10/27/2017 02/07/2018 Inactive Wants insulin pens Percocet 10 mg-325 mg tablet RxNorm: 7802053 1-2 Tablet(s) PO Q6 PRN 10/27/2017 11/08/2017 Inactive promethazine 25 mg tablet RxNorm: 006885 Tablet(s) 1 Tablet(s) PO Q6 PRN TAKE NEEDED ONLY!!! 10/27/2017 01/01/2018 Inactive Xanax 0.5 mg tablet RxNorm: 439323 Tablet(s) TAKE ONE TABLET BY MOUTH THREE TIMES DAILY 10/20/2017 04/08/2018 Inactive Tessalon Perles 100 mg capsule RxNorm: 887974 Capsule(s) 2 Capsule(s) PO TID as needed 10/19/2017 11/20/2017 Inactive Diflucan 150 mg tablet RxNorm: 730898 1 Tablet(s) PO every other day 10/15/2017 11/13/2017 Inactive Percocet 10 mg-325 mg tablet RxNorm: 2565212 1-2 Tablet(s) PO Q6 PRN 10/06/2017 10/20/2017 Inactive pantoprazole 40 mg tablet,delayed release RxNorm: 463964 1 Tablet(s) PO BID 10/03/2017 03/31/2018 Inactive Cymbalta 60 mg capsule,delayed release RxNorm: 890849 TAKE ONE CAPSULE BY MOUTH ONCE DAILY 09/21/2017 02/19/2018 Inactive Diflucan 150 mg tablet RxNorm: 361011 1 Tablet(s) PO every other day 09/15/2017 09/19/2017 Inactive hyoscyamine 0.125 mg sublingual tablet RxNorm: 6095329 1 Tablet(s) SL TID as needed 09/08/2017 12/12/2017 Inactive Lantus Solostar U-100 Insulin 100 unit/mL (3 mL) subcutaneous pen RxNorm: 886452 Unit(s) SQ 35 units QAM and 55 units QHS Unit(s) SQ 09/06/2017 09/20/2017 Inactive Wants insulin pens Lasix 40 mg tablet RxNorm: 483386 TAKE ONE TABLET BY MOUTH TWICE DAILY 08/25/2017 04/18/2018 Inactive ropinirole 1 mg tablet RxNorm: 942709 TAKE ONE TABLET BY MOUTH AT BEDTIME 08/25/2017 11/13/2017 Inactive Lantus U-100 Insulin 100 unit/mL subcutaneous solution RxNorm: 323920 35 units QAM and 55 units QHS Unit(s) SQ 08/21/2017 09/05/2017 Inactive Tessalon Perles 100 mg capsule RxNorm: 563205 Capsule(s) 2 Capsule(s) PO TID as needed 08/18/2017 10/18/2017 Inactive Percocet 10 mg-325 mg tablet RxNorm: 5986294 1-2 Tablet(s) PO Q6 PRN 08/16/2017 08/30/2017 Inactive pantoprazole 40 mg tablet,delayed release RxNorm: 507162 TAKE ONE TABLET BY MOUTH TWICE DAILY 08/14/2017 08/13/2017 Inactive pantoprazole 40 mg tablet,delayed release RxNorm: 829451 1 Tablet(s) PO daily 08/14/2017 10/02/2017 Inactive promethazine 25 mg tablet RxNorm: 592921 Tablet(s) 1 Tablet(s) PO Q6 PRN TAKE NEEDED ONLY!!! 08/11/2017 10/26/2017 Inactive omeprazole 20 mg capsule,delayed release RxNorm: 486151 1 Capsule(s) PO daily TAKE 1 CAPSULE BY MOUTH ONCE DAILY 08/07/2017 10/26/2017 Inactive nystatin 100,000 unit/mL oral suspension RxNorm: 382570 5 Milliliter(s) PO QID swish and swallow 08/07/2017 08/16/2017 Inactive mupirocin 2 % topical ointment RxNorm: 860268 APPLY TO SORE IN BELLY BUTTON TWICE DAILY 08/07/2017 02/14/2018 Inactive omeprazole 20 mg capsule,delayed release RxNorm: 917223 1 Capsule(s) PO BID TAKE 1 CAPSULE BY MOUTH TWICE DAILY 08/03/2017 08/06/2017 Inactive Diflucan 150 mg tablet RxNorm: 076430 1 Tablet(s) PO daily 08/05/2017 Inactive hyoscyamine 0.125 mg sublingual tablet RxNorm: 4055407 1 Tablet(s) SL TID as needed 08/03/2017 09/01/2017 Inactive gentamicin 0.3 % eye drops RxNorm: 146401 2 Drop(s) ophthalmic (eye) TID 08/03/2017 08/09/2017 Inactive Levaquin 500 mg tablet RxNorm: 006246 1 Tablet(s) PO every other day x3 doses 07/27/2017 08/02/2017 Inactive gentamicin 0.3 % eye drops RxNorm: 870381 2 Drop(s) ophthalmic (eye) TID 07/27/2017 08/02/2017 Inactive dicyclomine 10 mg capsule RxNorm: 403549 1 Capsule(s) PO TID 08/02/2017 Inactive Levaquin 500 mg tablet RxNorm: 721048 1 Tablet(s) PO daily 12/201707/26/2017 Inactive Lantus U-100 Insulin 100 unit/mL subcutaneous solution RxNorm: 184978 INJECT 35 UNITS SUBCUTANEOUSLY IN THE MORNING AND 55 UNITS AT BEDTIME 07/24/2017 09/05/2017 Inactive Tessalon Perles 100 mg capsule RxNorm: 326948 2 Capsule(s) PO TID as needed 07/24/2017 08/17/2017 Inactive Percocet 10 mg-325 mg tablet RxNorm: 4565034 1-2 Tablet(s) PO Q6 PRN 07/21/2017 08/04/2017 Inactive promethazine 25 mg tablet RxNorm: 374869 1 Tablet(s) PO Q6 PRN 1 Tablet(s) PO Q6 PRN 07/19/2017 07/26/2017 Inactive Cartia XT 240 mg capsule,extended release RxNorm: 606310 1 Capsule(s) PO daily 06/27/2017 06/21/2018 Active potassium chloride ER 20 mEq tablet,extended release RxNorm: 880735 Tablet(s) TAKE ONE TABLET BY MOUTH ONCE DAILY 06/21/2017 No Stop Date Active Lantus U-100 Insulin 100 unit/mL subcutaneous solution RxNorm: 968976 35 units QAM and 55 units QHS Unit(s) SQ 06/21/2017 07/20/2017 Inactive Please provide 30 day supply Percocet 10 mg-325 mg tablet RxNorm: 3512897 1-2 Tablet(s) PO Q6 PRN 06/21/2017 07/05/2017 Inactive Cartia XT 180 mg capsule,extended release RxNorm: 014140 Capsule(s) BID 06/21/2017 06/26/2017 Inactive Xanax 0.5 mg tablet RxNorm: 449760 Tablet(s) TAKE ONE TABLET BY MOUTH THREE TIMES DAILY 06/21/2017 08/19/2017 Inactive digoxin 125 mcg tablet RxNorm: 401936 1 Tablet(s) PO daily 10/18/2017 Inactive gabapentin 600 mg tablet RxNorm: 757496 Tablet(s) TAKE ONE & ONE-HALF TABLETS BY MOUTH THREE TIMES DAILY 06/21/20172017 Inactive dicyclomine 10 mg capsule RxNorm: 068599 1 Capsule(s) PO TID 07/26/2017 Inactive Lantus U-100 Insulin 100 unit/mL subcutaneous solution RxNorm: 331024 35 units QAM and 55 units QHS Unit(s) SQ 06/13/2017 06/20/2017 Inactive Please provide 30 day supply potassium chloride ER 20 mEq tablet,extended release RxNorm: 876130 TAKE ONE TABLET BY MOUTH ONCE DAILY 06/02/2017 Inactive cyclobenzaprine 10 mg tablet RxNorm: 647769 Tablet(s) TABLET(S) 1 TABLET(S) PO NEEDED TAKE 1 TABLET BY MOUTH EVERY 8 HOURS NEEDED 201711/02/2017 Inactive Tessalon Perles 100 mg capsule RxNorm: 208834 2 Capsule(s) PO TID as needed 06/01/2017 07/23/2017 Inactive promethazine 25 mg tablet RxNorm: 655851 1 Tablet(s) PO Q6 PRN 1 Tablet(s) PO Q6 PRN 05/25/2017 06/01/2017 Inactive gabapentin 600 mg tablet RxNorm: 347206 TAKE ONE & ONE-HALF TABLETS BY MOUTH THREE TIMES DAILY 05/23/2017 06/20/2017 Inactive promethazine 25 mg tablet RxNorm: 484962 1 Tablet(s) PO Q6 PRN 1 Tablet(s) PO Q6 PRN 05/19/2017 05/24/2017 Inactive Flagyl 500 mg tablet RxNorm: 644760 1 Tablet(s) PO TID 201605/26/2017 Inactive Levaquin 500 mg tablet RxNorm: 035519 1 Tablet(s) PO daily 05/16/2017 Inactive Tessalon Perles 100 mg capsule RxNorm: 480208 2 Capsule(s) PO TID as needed 05/17/2017 05/31/2017 Inactive Flagyl 500 mg tablet RxNorm: 716401 1 Tablet(s) PO TID 201605/16/2017 Inactive hyoscyamine 0.125 mg sublingual tablet RxNorm: 3196413 1 Tablet(s) SL TID as needed 05/17/2017 06/12/2017 Inactive Levaquin 500 mg tablet RxNorm: 904986 1 Tablet(s) PO daily 05/23/2017 Inactive Cymbalta 60 mg capsule,delayed release RxNorm: 053319 1 Capsule(s) PO daily take with 30mg tablet 05/16/2017 08/13/2017 Inactive Bentyl 10 mg capsule RxNorm: 168208 1 Capsule(s) PO TID as needed 05/12/2017 06/10/2017 Inactive Levsin 0.125 mg tablet RxNorm: 2754301 1 Tablet(s) PO Q4 PRN 1-2 Tablet(s) PO Q4 PRN 05/11/2017 05/11/2017 Inactive nystatin 100,000 unit/gram topical powder RxNorm: 359648 Gram(s) APPLY POWDER TOPICALLY 4 TIMES DAILY 05/11/20172017 Inactive nystatin 100,000 unit/mL oral suspension RxNorm: 754663 4 Milliliter(s) PO QID swish and swallow 05/10/2017 05/19/2017 Inactive and Monistat over the counter colestipol 1 gram tablet RxNorm: 0940548 TAKE ONE TABLET BY MOUTH TWICE DAILY 05/08/2017 03/29/2018 Inactive Lantus 100 unit/mL subcutaneous solution RxNorm: 738535 30 units QAM and 50 units QHS Unit(s) SQ 04/28/2017 05/27/2017 Inactive Please provide 30 day supply Lantus Solostar 100 unit/mL (3 mL) subcutaneous insulin pen RxNorm: 923138 Unit( s) SQ BID 04/28/2017 06/13/2017 Inactive 30 units q am and 50units at night Lantus 100 unit/mL subcutaneous solution RxNorm: 703112 30 units QAM and 50 units QHS Unit(s) SQ 04/28/2017 04/27/2017 Inactive Please provide 30 day supply Levsin 0.125 mg tablet RxNorm: 1904201 1 Tablet(s) PO Q4 PRN 1-2 Tablet(s) PO Q4 PRN 04/25/2017 05/10/2017 Inactive promethazine 25 mg tablet RxNorm: 529144 1 Tablet(s) PO Q6 PRN 1 Tablet(s) PO Q6 PRN 04/25/2017 05/02/2017 Inactive Toprol XL 100 mg tablet,extended release RxNorm: 179420 TAKE ONE TABLET BY MOUTH TWICE DAILY 04/24/2017 11/14/2017 Inactive Flagyl 500 mg tablet RxNorm: 947733 1 Tablet(s) PO TID 201604/30/2017 Inactive Levaquin 500 mg tablet RxNorm: 344957 1 Tablet(s) PO daily 05/201604/27/2017 Inactive Voltaren 1 % topical gel RxNorm: 181135 4 Gram(s) TOP QID 04/1810/14/2017 Inactive mupirocin 2 % topical ointment RxNorm: 967982 1 Application TOP BID 04/18/2017 04/27/2017 Inactive apply to sore in belly button Lantus Solostar 100 unit/mL (3 mL) subcutaneous insulin pen RxNorm: 661787 Unit( s) SQ BID 04/18/2017 04/27/2017 Inactive 20 units q am and 50units at night levothyroxine 88 mcg tablet RxNorm: 077027 1 Tablet(s) PO daily TAKE ONE TABLET BY MOUTH ONCE DAILY 04/06/2017 04/17/2017 Inactive Xanax 0.5 mg tablet RxNorm: 343869 Tablet(s) TAKE ONE TABLET BY MOUTH THREE TIMES DAILY 04/04/2017 06/02/2017 Inactive Percocet 10 mg-325 mg tablet RxNorm: 4355830 1-2 Tablet(s) PO Q6 PRN 04/04/2017 04/18/2017 Inactive cyclobenzaprine 10 mg tablet RxNorm: 151590 TAKE ONE TABLET BY MOUTH EVERY 8 HOURS NEEDED 04/03/2017 06/01/2017 Inactive potassium chloride ER 20 mEq tablet,extended release RxNorm: 398518 1 Tablet(s) PO daily 03/28/2017 06/01/2017 Inactive nystatin 100,000 unit/gram topical cream RxNorm: 410421 1 Application TOP BID 03/27/2017 04/09/2017 Inactive Levsin 0.125 mg tablet RxNorm: 8094494 1 Tablet(s) PO Q4 PRN 1-2 Tablet(s) PO Q4 PRN 03/27/2017 04/24/2017 Inactive promethazine 25 mg tablet RxNorm: 879573 1 Tablet(s) PO Q6 PRN 03/23/2017 03/29/2017 Inactive nystatin 100,000 unit/gram topical powder RxNorm: 502612 APPLY POWDER TOPICALLY 4 TIMES DAILY 03/17/2017 05/10/2017 Inactive Percocet 10 mg-325 mg tablet RxNorm: 9180818 1-2 Tablet(s) PO Q6 PRN 03/09/2017 03/23/2017 Inactive Levsin 0.125 mg tablet RxNorm: 0634492 1-2 Tablet(s) PO Q4 PRN 03/06/2017 03/26/2017 Inactive promethazine 25 mg tablet RxNorm: 411614 1 Tablet(s) PO Q6 PRN 03/06/2017 03/13/2017 Inactive potassium chloride ER 20 mEq tablet,extended release RxNorm: 987657 1 Tablet(s) PO BID 02/23/2017 03/09/2017 Inactive Levsin/SL 0.125 mg sublingual tablet RxNorm: 5842298 1-2 Tablet(s) SL Q4 PRN 02/17/2017 03/26/2017 Inactive potassium chloride ER 20 mEq tablet,extended release RxNorm: 287727 1 Tablet(s) PO BID 02/17/2017 02/21/2017 Inactive magnesium oxide 400 mg tablet RxNorm: 068570 1 Tablet(s) PO daily 02/17/2017 02/21/2017 Inactive then twice weekly thereafter Levsin 0.125 mg tablet RxNorm: 5177205 1-2 Tablet(s) PO Q4 PRN 02/17/2017 02/16/2017 Inactive promethazine 25 mg tablet RxNorm: 104665 1 Tablet(s) PO Q6 PRN 02/10/2017 03/05/2017 Inactive Percocet 10 mg-325 mg tablet RxNorm: 9785548 1-2 Tablet(s) PO Q6 PRN 02/09/2017 02/23/2017 Inactive Cymbalta 60 mg capsule,delayed release RxNorm: 714984 1 Capsule(s) PO daily take with 30mg tablet 02/06/2017 05/06/2017 Inactive Cymbalta 30 mg capsule,delayed release RxNorm: 878840 1 Capsule(s) PO daily take with 60mg tablet 02/06/2017 02/19/2018 Inactive take with 60mg=90mg Vitamin D2 50,000 unit capsule RxNorm: 446344 1 Capsule(s) PO daily 01/17/2017 01/16/2017 Inactive daily x 6 mths Tresiba FlexTouch U-100 100 unit/mL (3 mL) subcutaneous insulin pen RxNorm: 4630377 40 Unit(s) SQ daily 01/17/20172016 Inactive Tresiba FlexTouch U-100 100 unit/mL (3 mL) subcutaneous insulin pen RxNorm: 9897691 40 Unit(s) SQ daily 01/17/20172016 Inactive Vitamin D2 50,000 unit capsule RxNorm: 383400 1 Capsule(s) PO daily 01/17/2017 10/26/2017 Inactive daily x 6 mths Cymbalta 30 mg capsule,delayed release RxNorm: 613003 1 Capsule(s) PO daily 01/16/2017 02/05/2017 Inactive take with 60mg=90mg Percocet 10 mg-325 mg tablet RxNorm: 1015971 1-2 Tablet(s) PO Q6 PRN 01/13/2017 01/27/2017 Inactive gabapentin 600 mg tablet RxNorm: 407107 TAKE ONE & ONE-HALF TABLETS BY MOUTH THREE TIMES DAILY 01/10/2017 05/09/2017 Inactive Percocet 10 mg-325 mg tablet RxNorm: 2912918 1-2 Tablet(s) PO Q6 PRN 12/21/2016 01/04/2017 Inactive Xanax 0.5 mg tablet RxNorm: 520164 Tablet(s) TAKE ONE TABLET BY MOUTH THREE TIMES DAILY 12/20/2016 02/15/2017 Inactive promethazine 25 mg tablet RxNorm: 586734 1 Tablet(s) PO Q6 PRN 12/16/2016 12/18/2016 Inactive prednisone 20 mg tablet RxNorm: 931906 2 Tablet(s) PO daily 12/14/2016 Inactive prednisone 20 mg tablet RxNorm: 929069 2 Tablet(s) PO daily 03/26/2017 Inactive Eliquis 5 mg tablet RxNorm: 1233811 1 Tablet(s) PO BID 201601/11/2017 Inactive doxycycline monohydrate 100 mg tablet RxNorm: 563198 1 Tablet(s) PO BID 12/13/2016 03/26/2017 Inactive give doxycyline hyclate cyclobenzaprine 10 mg tablet RxNorm: 290220 TAKE ONE TABLET BY MOUTH EVERY 8 HOURS NEEDED 12/09/2016 12/28/2016 Inactive Cymbalta 60 mg capsule,delayed release RxNorm: 878963 TAKE ONE CAPSULE BY MOUTH ONCE DAILY 11/30/2016 02/05/2017 Inactive promethazine 25 mg tablet RxNorm: 314005 2 Tablet(s) PO Q6 PRN 11/29/2016 12/16/2016 Inactive Percocet 10 mg-325 mg tablet RxNorm: 3277471 1-2 Tablet(s) PO Q6 PRN 11/24/2016 12/08/2016 Inactive mupirocin 2 % topical ointment RxNorm: 583455 1 Application TOP BID 11/11/2016 11/24/2016 Inactive Xanax 0.5 mg tablet RxNorm: 603000 Tablet(s) TAKE ONE TABLET BY MOUTH THREE TIMES DAILY 11/11/2016 12/19/2016 Inactive Belviq 10 mg tablet RxNorm: 8480920 1 Tablet(s) PO BID 201612/10/2016 Inactive Toprol XL 100 mg tablet,extended release RxNorm: 360582 TAKE ONE TABLET BY MOUTH TWICE DAILY 11/04/2016 04/02/2017 Inactive albuterol sulfate concentrate 2.5 mg/0.5 mL solution for nebulization RxNorm: 757298 USE ONE VIAL IN NEBULIZER EVERY 4 TO 6 HOURS NEEDED 11/03/2016 11/12/2016 Inactive Percocet 10 mg-325 mg tablet RxNorm: 9145683 1-2 Tablet(s) PO Q6 PRN 10/31/2016 11/23/2016 Inactive promethazine 25 mg tablet RxNorm: 638324 2 Tablet(s) PO Q6 PRN 10/28/2016 11/28/2016 Inactive nystatin 100,000 unit/mL oral suspension RxNorm: 552967 5 Milliliter(s) PO QID 10/28/2016 11/06/2016 Inactive Levemir FlexTouch 100 unit/mL (3 mL) subcutaneous insulin pen RxNorm: 404514 45 Unit(s) SQ BID 10/28/2016 01/16/2017 Inactive 45 q am and 40 q anita cyclobenzaprine 10 mg tablet RxNorm: 120592 TAKE ONE TABLET BY MOUTH EVERY 8 HOURS NEEDED 10/21/2016 11/09/2016 Inactive Lasix 40 mg tablet RxNorm: TAKE ONE TABLET BY MOUTH TWICE DAILY 10/18/2016 04/15/2017 Inactive Percocet 10 mg-325 mg tablet RxNorm: 3134541 1-2 Tablet(s) PO Q6 PRN 10/18/2016 10/30/2016 Inactive acyclovir 400 mg tablet RxNorm: 193762 2 Tablet(s) PO QID 10/1310/22/2016 Inactive Lasix 40 mg tablet RxNorm: TAKE ONE TABLET BY MOUTH TWICE DAILY 10/10/2016 10/17/2016 Inactive ropinirole 1 mg tablet RxNorm: 865337 TAKE ONE TABLET BY MOUTH AT BEDTIME 10/10/2016 04/07/2017 Inactive nystatin 100,000 unit/mL oral suspension RxNorm: 400252 5 Milliliter(s) PO QID x 10 days 09/30/2016 10/09/2016 Inactive nystatin 100,000 unit/mL oral suspension RxNorm: 170371 5 Milliliter(s) PO QID x 10 days 09/30/2016 10/09/2016 Inactive Swish et swallow Flonase Allergy Relief 50 mcg/actuation nasal spray, suspension RxNorm: 5315032 2 Welda NASAL daily 09/23/20162016 Inactive Percocet 10 mg-325 mg tablet RxNorm: 2841024 1-2 Tablet(s) PO Q6 PRN 09/23/2016 10/17/2016 Inactive doxycycline monohydrate 100 mg tablet RxNorm: 528116 1 Tablet(s) PO BID 09/23/2016 10/02/2016 Inactive give doxycyline hyclate Levemir FlexTouch 100 unit/mL (3 mL) subcutaneous insulin pen RxNorm: 514298 40 Unit(s) SQ BID 09/15/2016 10/27/2016 Inactive nystatin 100,000 unit/gram topical powder RxNorm: 401310 1 Application TOP QID 09/13/2016 09/22/2016 Inactive Voltaren 1 % topical gel RxNorm: 756163 4 Gram(s) TOP QID 09/1303/11/2017 Inactive Anusol-HC 25 mg rectal suppository RxNorm: 2158231 1 Suppository RTL HS 09/13/2016 09/26/2016 Inactive hydrocodone 10 mg-acetaminophen 325 mg tablet RxNorm: 251181 1-2 Tablet(s) PO Q6 as needed 09/13/2016 09/22/2016 Inactive Linzess 145 mcg capsule RxNorm: 2727894 1 Capsule(s) PO daily 09/01/2016 10/26/2017 Inactive Linzess 145 mcg capsule RxNorm: 5789859 1 Capsule(s) PO daily 09/01/2016 08/31/2016 Inactive Zofran 4 mg tablet RxNorm: 411569 TAKE ONE TABLET BY MOUTH EVERY 4 TO 6 HOURS NEEDED 08/29/2016 08/02/2017 Inactive Voltaren 1 % topical gel RxNorm: 840210 4 Gram(s) TOP QID 08/2309/12/2016 Inactive levothyroxine 88 mcg tablet RxNorm: 494973 TAKE ONE TABLET BY MOUTH ONCE DAILY 08/19/2016 12/16/2016 Inactive hydrocodone 10 mg-acetaminophen 325 mg tablet RxNorm: 470942 1 Tablet(s) PO Q6 as needed 08/17/2016 09/12/2016 Inactive nystatin 100,000 unit/gram topical powder RxNorm: 328921 1 Application TOP QID 08/16/2016 08/25/2016 Inactive Cymbalta 60 mg capsule,delayed release RxNorm: 390054 TAKE ONE CAPSULE BY MOUTH ONCE DAILY 08/10/2016 11/29/2016 Inactive Voltaren 1 % topical gel RxNorm: 354953 4 Gram(s) TOP QID 08/1008/22/2016 Inactive Voltaren 1 % topical gel RxNorm: 680982 4 Gram(s) TOP QID 08/1008/09/2016 Inactive promethazine 25 mg tablet RxNorm: 384210 TAKE ONE TABLET BY MOUTH EVERY 8 HOURS NEEDED FOR NAUSEA 07/29/20162017 Inactive nystatin 100,000 unit/gram topical powder RxNorm: 967616 1 Application TOP QID 07/26/2016 08/04/2016 Inactive Levemir FlexTouch U-100 Insulin 100 unit/mL (3 mL) subcutaneous pen RxNorm: 141342 35 Unit(s) SQ BID 07/26/201609/2016 Inactive 35 q am and 30 q pm cyclobenzaprine 10 mg tablet RxNorm: 203998 TAKE ONE TABLET BY MOUTH EVERY 8 HOURS NEEDED 07/14/2016 08/22/2016 Inactive hydrocodone 10 mg-acetaminophen 325 mg tablet RxNorm: 115221 1 Tablet(s) PO Q6 as needed 07/11/2016 08/16/2016 Inactive nystatin 100,000 unit/mL oral suspension RxNorm: 670054 5 Milliliter(s) PO QID x 10 days 07/05/2016 07/04/2016 Inactive nystatin 100,000 unit/mL oral suspension RxNorm: 794429 5 Milliliter(s) PO QID x 10 days 07/05/2016 07/04/2016 Inactive nystatin 100,000 unit/mL oral suspension RxNorm: 232901 5 Milliliter(s) PO QID x 10 days 07/05/2016 07/14/2016 Inactive Swish et swallow doxycycline monohydrate 100 mg tablet RxNorm: 336728 1 Tablet(s) PO BID 06/24/2016 07/03/2016 Inactive give doxycyline hyclate promethazine 25 mg tablet RxNorm: 085458 TAKE ONE TABLET BY MOUTH EVERY 8 HOURS NEEDED FOR NAUSEA 06/01/20162016 Inactive pantoprazole 40 mg tablet,delayed release RxNorm: 568299 1 Tablet(s) PO BID 05/25/2016 08/02/2017 Inactive Zofran 4 mg tablet RxNorm: 425522 1 Tablet(s) PO Q12 PRN TAKE 1 TABLET BY MOUTH EVERY 4 TO 6 HOURS NEEDED 05/24/2016 Inactive hydrocodone 10 mg-acetaminophen 325 mg tablet RxNorm: 435096 1 Tablet(s) PO Q6 as needed 05/24/2016 07/10/2016 Inactive Levemir FlexTouch 100 unit/mL (3 mL) subcutaneous insulin pen RxNorm: 437362 25 Unit(s) SQ BID 05/24/2016 06/22/2016 Inactive Xanax 0.5 mg tablet RxNorm: 333221 Tablet(s) TAKE ONE TABLET BY MOUTH THREE TIMES DAILY 05/11/2016 07/09/2016 Inactive BD Insulin Pen Needle UF Short 31 gauge x 5/16" RxNorm: [facility] [place] 05/06/2016 05/05/2016 Inactive BD Insulin Pen Needle UF Short 31 gauge x 5/16" RxNorm: [facility] [place] 05/06/2016 06/04/2016 Inactive colestipol 1 gram tablet RxNorm: 5585227 Tablet(s) TAKE 1 TABLET BY MOUTH TWICE DAILY 04/22/2016 04/16/2017 Inactive Levemir FlexTouch 100 unit/mL (3 mL) subcutaneous insulin pen RxNorm: 974123 20 Unit(s) SQ BID 04/19/2016 05/18/2016 Inactive 25 UNITS Q AM AND 20 UNITS Q HS Cartia XT 180 mg capsule,extended release RxNorm: 184027 Capsule(s) BID 04/11/2016 04/05/2017 Inactive hydrocodone 10 mg-acetaminophen 325 mg tablet RxNorm: 984354 1 Tablet(s) PO Q6 as needed 04/11/2016 05/23/2016 Inactive Levemir FlexTouch 100 unit/mL (3 mL) subcutaneous insulin pen RxNorm: 435452 20 Unit(s) SQ BID 04/11/2016 04/18/2016 Inactive 20 UNITS Q AM AND 15 UNITS Q HS X 1 WEEK THEN 20 UNITS BID levothyroxine 88 mcg tablet RxNorm: 890053 1 Tablet(s) PO daily 03/21/2016 07/18/2016 Inactive Cymbalta 60 mg capsule,delayed release RxNorm: 568526 1 Capsule(s) PO daily 03/21/2016 07/18/2016 Inactive diltiazem ER (XR/XT) 240 mg capsule,extended release, controlled RxNorm: 989951 1 Capsule(s) PO BID 03/18/20162017 Inactive doxycycline hyclate 100 mg tablet RxNorm: 191979 1 Tablet(s) PO BID 03/11/2016 03/17/2016 Inactive Levemir FlexTouch 100 unit/mL (3 mL) subcutaneous insulin pen RxNorm: 870609 10 Unit(s) SQ BID 03/11/2016 04/09/2016 Inactive Lasix 40 mg tablet RxNorm: 850559 1 Tablet(s) PO BID 201509/06/2016 Inactive gabapentin 600 mg tablet RxNorm: 851710 Tablet(s) 1.5 TABLET(S) PO TID 03/04/2016 08/30/2016 Inactive Toujeo SoloStar 300 unit/mL (1.5 mL) subcutaneous insulin pen RxNorm: 0815952 10 Unit(s) SQ QHS 02/26/2016 03/26/2016 Inactive polymyxin B sulfate 10,000 unit-trimethoprim 1 mg/mL eye drops RxNorm: 630255 2 Drop(s) OPH TID 02/26/2016 03/03/2016 Inactive Lasix 20 mg tablet RxNorm: 092302 2 Tablet(s) PO BID TAKE 2 TABLETS BY MOUTH EVERY MORNING AND 2 TABLET BY MOUTH AT 3 PM 02/26/2016 03/10/2016 Inactive cyclobenzaprine 10 mg tablet RxNorm: 893135 Tablet(s) TABLET(S) TABLET(S) 1 TABLET (S) PO NEEDED TAKE 1 TABLET BY MOUTH EVERY 8 HOURS NEEDED 02/26/2016 07/13/2016 Inactive early fill- pt lost med Levemir FlexTouch 100 unit/mL (3 mL) subcutaneous insulin pen RxNorm: 299968 16 Unit(s) SQ QHS 02/18/2016 02/17/2016 Inactive Levemir FlexTouch 100 unit/mL (3 mL) subcutaneous insulin pen RxNorm: 678910 16 Unit(s) SQ QHS 02/18/2016 02/25/2016 Inactive Levemir 100 unit/mL subcutaneous solution RxNorm: 793937 16 Unit(s) SQ QHS 02/15/2016 02/17/2016 Inactive disp needles as well Effexor XR 37.5 mg capsule,extended release RxNorm: 829457 1 Capsule(s) QPM CAPSULE(S) PO TAKE 2 CAPSULES BY MOUTH EVERY MORNING AND 1 CAPSULE BY MOUTH EVERY NIGHT AT BEDTIME 02/15/20162015 Inactive clotrimazole 100 mg vaginal tablet RxNorm: 191839 1 Tablet(s) VAG QHS 02/05/2016 02/11/2016 Inactive clotrimazole 100 mg vaginal tablet RxNorm: 958642 1 Tablet(s) VAG QHS 02/05/2016 02/04/2016 Inactive hydrocodone 10 mg-acetaminophen 325 mg tablet RxNorm: 504033 1 Tablet(s) PO Q6 as needed 02/05/2016 04/10/2016 Inactive flecainide 100 mg tablet RxNorm: 477856 1 Tablet(s) PO BID No Stop Date Active potassium chloride ER 10 mEq tablet,extended release RxNorm: 161137 1 Tablet(s) PO daily 1 TABLET(S) PO QDAY PRN TAKE WITH LASIX 02/02/2016 01/26/2017 Inactive Brovana 15 mcg/2 mL solution for nebulization RxNorm: 824339 2 Milliliter(s) INH BID PRN 02/02/2016 03/20/2016 Inactive promethazine 25 mg tablet RxNorm: 612951 1 Tablet(s) PO Q8 as needed nausea 01/27/2016 03/20/2016 Inactive promethazine 25 mg tablet RxNorm: 788763 1 Tablet(s) PO Q6 PRN 01/27/2016 02/03/2016 Inactive nystatin 100,000 unit/mL oral suspension RxNorm: 142516 5 Unit(s) PO QID 01/12/2016 01/21/2016 Inactive promethazine 25 mg tablet RxNorm: 523782 1 Tablet(s) PO Q6 PRN 12/30/2015 01/06/2016 Inactive hydrocodone 7.5 mg-acetaminophen 325 mg tablet RxNorm: 041016 1 Tablet(s) PO q 6 hours prn for pain 12/10/2015 01/06/2016 Inactive Xanax 0.5 mg tablet RxNorm: 973732 TAKE ONE TABLET BY MOUTH THREE TIMES DAILY 12/02/2015 12/31/2015 Inactive Xanax 0.5 mg tablet RxNorm: 675730 Tablet(s) TAKE 1 TABLET BY MOUTH THREE TIMES DAILY 12/02/2015 11/30/2015 Inactive Anusol-HC 25 mg rectal suppository RxNorm: 5517968 1 Suppository RTL HS 11/27/2015 09/12/2016 Inactive ropinirole 1 mg tablet RxNorm: 584235 1 Tablet(s) PO QHS 201505/24/2016 Inactive nystatin 100,000 unit/mL oral suspension RxNorm: 175970 5 Unit(s) PO QID 11/20/2015 11/29/2015 Inactive albuterol sulfate concentrate 2.5 mg/0.5 mL solution for nebulization RxNorm: 228843 3 Milliliter(s) INH Q4-6H as needed 11/10/2015 11/02/2016 Inactive doxycycline monohydrate 100 mg tablet RxNorm: 132488 1 Tablet(s) PO BID 11/10/2015 11/19/2015 Inactive give doxycyline hyclate promethazine 25 mg tablet RxNorm: 058409 1 Tablet(s) PO Q6 PRN 11/05/2015 11/12/2015 Inactive Bactroban 2 % topical ointment RxNorm: 039468 1 APPLICATION TOP BID 10/27/2015 10/26/2017 Inactive Belviq 10 mg tablet RxNorm: 1159357 1 Tablet(s) PO BID 201511/25/2015 Inactive hydrocodone 7.5 mg-acetaminophen 325 mg tablet RxNorm: 897585 1 Tablet(s) PO q 6 hours prn for pain 10/20/2015 11/18/2015 Inactive Toprol XL 100 mg tablet,extended release RxNorm: 470096 Tablet(s) TAKE 1 TABLET BY MOUTH TWICE DAILY 10/16/20152016 Inactive Diflucan 150 mg tablet RxNorm: 987653 1 Tablet(s) PO every other day 10/14/2015 10/23/2015 Inactive Xanax 0.5 mg tablet RxNorm: 005718 Tablet(s) TAKE 1 TABLET BY MOUTH THREE TIMES DAILY 10/14/2015 05/10/2016 Inactive Toprol XL 100 mg tablet,extended release RxNorm: 296513 Tablet(s) TAKE 1 TABLET BY MOUTH TWICE DAILY 10/13/20152015 Inactive cyclobenzaprine 10 mg tablet RxNorm: 443000 Tablet(s) TABLET(S) TABLET(S) 1 TABLET (S) PO NEEDED TAKE 1 TABLET BY MOUTH EVERY 8 HOURS NEEDED 10/02/2015 10/14/2015 Inactive Zofran 4 mg tablet RxNorm: 248448 Tablet(s) 1 TABLET(S) PRN TAKE 1 TABLET BY MOUTH EVERY 4 TO 6 HOURS NEEDED 09/29/2015 12/27/2015 Inactive Synthroid 88 mcg tablet RxNorm: 690160 1 Tablet(s) PO daily 1 TABLET(S) PO DAILY 09/29/2015 10/28/2015 Inactive Patient requests 90 days supply promethazine 25 mg tablet RxNorm: 624346 1 Tablet(s) PO Q6 PRN 09/29/2015 11/04/2015 Inactive Lasix 20 mg tablet RxNorm: 188054 2 Tablet(s) PO BID 201501/18/2016 Inactive promethazine 25 mg tablet RxNorm: 542286 1 Tablet(s) PO Q6 PRN 09/22/2015 09/28/2015 Inactive hydrocodone 7.5 mg-acetaminophen 325 mg tablet RxNorm: 708432 1 Tablet(s) PO q 6 hours prn for pain 09/17/2015 10/16/2015 Inactive WelChol 625 mg tablet RxNorm: 304642 3 Tablet(s) PO BID 201503/26/2017 Inactive promethazine 25 mg tablet RxNorm: 827279 1 Tablet(s) PO Q8 as needed 09/07/2015 10/26/2017 Inactive Levemir 100 unit/mL subcutaneous solution RxNorm: 356370 16 Unit(s) SQ QHS 09/01/2015 02/14/2016 Inactive pantoprazole 40 mg tablet,delayed release RxNorm: 900309 1 Tablet(s) PO daily 09/01/2015 05/24/2016 Inactive Effexor XR 37.5 mg capsule,extended release RxNorm: 822429 Capsule(s) CAPSULE(S) PO TAKE 2 CAPSULES BY MOUTH EVERY MORNING AND 1 CAPSULE BY MOUTH EVERY NIGHT AT BEDTIME 08/27/2015 02/14/2016 Inactive promethazine 25 mg tablet RxNorm: 597968 1 Tablet(s) PO Q8 as needed 08/13/2015 09/06/2015 Inactive gabapentin 600 mg tablet RxNorm: 049199 Tablet(s) 1.5 TABLET(S) PO TID 08/13/2015 02/08/2016 Inactive hydrocodone 7.5 mg-acetaminophen 325 mg tablet RxNorm: 769996 1 Tablet(s) PO q 6 hours prn for pain 08/10/2015 09/08/2015 Inactive Zofran 4 mg tablet RxNorm: 865832 Tablet(s) 1 TABLET(S) PRN TAKE 1 TABLET BY MOUTH EVERY 4 TO 6 HOURS NEEDED 08/04/2015 08/03/2015 Inactive Zofran 4 mg tablet RxNorm: 273335 Tablet(s) 1 TABLET(S) PRN TAKE 1 TABLET BY MOUTH EVERY 4 TO 6 HOURS NEEDED 08/04/2015 09/28/2015 Inactive doxycycline monohydrate 100 mg tablet RxNorm: 203830 1 Tablet(s) PO BID 08/04/2015 08/10/2015 Inactive give doxycyline hyclate Diflucan 150 mg tablet RxNorm: 070707 1 Tablet(s) PO every other day 07/31/2015 08/09/2015 Inactive nystatin 100,000 unit/mL oral suspension RxNorm: 761104 5 Milliliter(s) PO QID 07/31/2015 07/30/2015 Inactive Diflucan 150 mg tablet RxNorm: 805428 1 Tablet(s) PO every other day 07/31/2015 07/30/2015 Inactive nystatin 100,000 unit/mL oral suspension RxNorm: 248593 5 Milliliter(s) PO QID 07/31/2015 08/09/2015 Inactive Ceftin 500 mg tablet RxNorm: 478180 1 Tablet(s) PO BID 201507/23/2015 Inactive Ceftin 500 mg tablet RxNorm: 052058 1 Tablet(s) PO BID Pre-medicate with benadryl 50 mg, pepcid 20 mg, and nathanael before each dose 07/24/2015 07/30/2015 Inactive cyclobenzaprine 10 mg tablet RxNorm: 219694 TABLET(S) TABLET(S) 1 TABLET(S) PO NEEDED TAKE 1 TABLET BY MOUTH EVERY 8 HOURS NEEDED 201502/25/2016 Inactive early fill- pt lost med Synthroid 88 mcg tablet RxNorm: 794172 1 TABLET(S) PO DAILY 07/201509/28/2015 Inactive Patient requests 90 days supply cyclobenzaprine 10 mg tablet RxNorm: 889698 Tablet(s) TABLET(S) TABLET(S) 1 TABLET (S) PO NEEDED TAKE 1 TABLET BY MOUTH EVERY 8 HOURS NEEDED 07/23/2015 10/01/2015 Inactive early fill- pt lost med Promethazine VC 6.25 mg-5 mg/5 mL syrup RxNorm: 4307401 1-2 Teaspoon(s) PO Q6 PRN as needed 07/22/2015 03/20/2016 Inactive Diflucan 150 mg tablet RxNorm: 829632 1 Tablet(s) PO daily 06/201507/22/2015 Inactive Lasix 20 mg tablet RxNorm: 172623 Tablet(s) TAKE 2 TABLETS BY MOUTH EVERY MORNING AND 2 TABLET BY MOUTH AT 3PM 07/16/2015 09/21/2015 Inactive Toprol XL 100 mg tablet,extended release RxNorm: 616538 Tablet(s) TAKE 1 TABLET BY MOUTH TWICE DAILY 07/16/20152015 Inactive Cartia XT 180 mg capsule,extended release RxNorm: 679819 Capsule(s) 1 CAPSULE(S) PO DAILY TAKE 1 CAPSULE BY MOUTH AT BEDTIME ..TAKE THIS IN ADDITION TO 240 MG IN THE MORNING 07/14/2015 04/10/2016 Inactive diltiazem ER (XR/XT) 240 mg capsule,extended release, controlled RxNorm: 511429 Capsule(s) TAKE 1 CAPSULE BY MOUTH DAILY 07/14/2015 03/17/2016 Inactive gabapentin 600 mg tablet RxNorm: 262630 Tablet(s) 1.5 TABLET(S) PO TID 07/06/2015 08/12/2015 Inactive Phenergan 25 mg tablet RxNorm: 692233 1 Tablet(s) PO Q8 as needed nausea 06/29/2015 01/25/2016 Inactive doxycycline monohydrate 100 mg tablet RxNorm: 769251 1 Tablet(s) PO BID 06/29/2015 06/28/2015 Inactive doxycycline monohydrate 100 mg tablet RxNorm: 070851 1 Tablet(s) PO BID 06/29/2015 07/08/2015 Inactive give doxycyline hyclate doxycycline monohydrate 100 mg tablet RxNorm: 286656 1 Tablet(s) PO BID 06/29/2015 06/28/2015 Inactive Lasix 20 mg tablet RxNorm: 997153 Tablet(s) TAKE 2 TABLETS BY MOUTH EVERY MORNING AND 2 TABLET BY MOUTH AT 3PM 06/29/2015 07/15/2015 Inactive Lasix 20 mg tablet RxNorm: 673351 Tablet(s) TAKE 2 TABLETS BY MOUTH EVERY MORNING AND 1 TABLET BY MOUTH AT 3PM 06/26/2015 06/28/2015 Inactive Xanax 0.5 mg tablet RxNorm: 888500 Tablet(s) TAKE 1 TABLET BY MOUTH THREE TIMES DAILY 06/26/2015 07/25/2015 Inactive Kenalog 40 mg/mL suspension for injection RxNorm: 3090732 Milliliter(s) Inj 06/26/2015 06/26/2015 Inactive hydrocodone 7.5 mg-acetaminophen 325 mg tablet RxNorm: 226299 1 Tablet(s) PO q 6 hours prn for pain 06/26/2015 07/25/2015 Inactive Dexilant 60 mg capsule, delayed release RxNorm: 399203 1 Capsule(s) PO daily 06/26/2015 08/24/2015 Inactive colestipol 1 gram tablet RxNorm: 5382324 1 TABLET(S) PO BID TAKE 1 TABLET BY MOUTH TWICE DAILY 06/16/2015 03/11/2016 Inactive hydrocodone 7.5 mg-acetaminophen 325 mg tablet RxNorm: 502008 1 Tablet(s) PO q 6 hours prn for pain 06/11/2015 06/25/2015 Inactive cyclobenzaprine 10 mg tablet RxNorm: 177048 TABLET(S) TABLET(S) 1 TABLET(S) PO NEEDED TAKE 1 TABLET BY MOUTH EVERY 8 HOURS NEEDED 201507/22/2015 Inactive early fill- pt lost med Zofran 4 mg tablet RxNorm: 194200 1 TABLET(S) PRN TAKE 1 TABLET BY MOUTH EVERY 4 TO 6 HOURS NEEDED 05/25/20152015 Inactive Zofran 4 mg tablet RxNorm: 283618 1 Tablet(s) PRN TAKE 1 TABLET BY MOUTH EVERY 4 TO 6 HOURS NEEDED 05/19/20152015 Inactive gabapentin 600 mg tablet RxNorm: 308175 1.5 TABLET(S) PO TID 07/05/2015 Inactive Lasix 20 mg tablet RxNorm: 417940 TAKE 2 TABLETS BY MOUTH EVERY MORNING AND 1 TABLET BY MOUTH AT 3PM 05/07/20152015 Inactive Effexor XR 37.5 mg capsule,extended release RxNorm: 624880 Capsule(s) CAPSULE(S) PO TAKE 2 CAPSULES BY MOUTH EVERY MORNING AND 1 CAPSULE BY MOUTH EVERY NIGHT AT BEDTIME 04/15/2015 08/26/2015 Inactive Diflucan 150 mg tablet RxNorm: 413261 1 Tablet(s) PO daily 04/18/2015 Inactive Victoza 3-Babak 0.6 mg/0.1 mL (18 mg/3 mL) subcutaneous pen injector RxNorm: 871824 1.8 Milligram(s) SQ daily 04/14/201508/10 Inactive Levaquin 500 mg tablet RxNorm: 766734 1 Tablet(s) PO daily 04/20/2015 Inactive potassium chloride ER 10 mEq tablet,extended release RxNorm: 088536 1 TABLET(S) PO QDAY PRN TAKE WITH LASIX 04/13/201504/2016 Inactive Effexor XR 37.5 mg capsule,extended release RxNorm: 779550 CAPSULE(S) PO TAKE 2 CAPSULES BY MOUTH EVERY MORNING AND 1 CAPSULE BY MOUTH EVERY NIGHT AT BEDTIME 04/10/2015 04/14/2015 Inactive pantoprazole 40 mg tablet,delayed release RxNorm: 231051 1 Tablet(s) PO daily 03/31/2015 08/31/2015 Inactive Dexilant 60 mg capsule, delayed release RxNorm: 218021 1 Capsule(s) PO daily 03/31/2015 03/31/2015 Inactive pantoprazole 40 mg tablet,delayed release RxNorm: 956659 1 Tablet(s) PO daily 03/31/2015 03/30/2015 Inactive Dexilant 60 mg capsule, delayed release RxNorm: 128117 1 Capsule(s) PO daily 03/31/2015 05/29/2015 Inactive Dexilant 60 mg capsule, delayed release RxNorm: 255767 1 Capsule(s) PO daily 03/30/2015 03/30/2015 Inactive hydrocodone 7.5 mg-acetaminophen 325 mg tablet RxNorm: 621686 1 Tablet(s) PO q 6 hours prn for pain 03/30/2015 04/28/2015 Inactive cyclobenzaprine 10 mg tablet RxNorm: 182942 TABLET(S) TABLET(S) 1 TABLET(S) PO NEEDED TAKE 1 TABLET BY MOUTH EVERY 8 HOURS NEEDED 201405/31/2015 Inactive early fill- pt lost med Xanax 0.5 mg tablet RxNorm: 080046 Tablet(s) TAKE 1 TABLET BY MOUTH THREE TIMES DAILY 03/25/2015 04/23/2015 Inactive Lasix 20 mg tablet RxNorm: TAKE 2 TABLETS BY MOUTH EVERY MORNING AND 1 TABLET BY MOUTH AT 3PM 03/23/20152014 Inactive Levemir Flexpen 100 unit/mL (3 mL) solution subcutaneous insulin pen RxNorm: 340840 15 Unit(s) SQ BID 03/20/20152015 Inactive give quanity sufficient for 1 month- Dexilant 60 mg capsule, delayed release RxNorm: 004391 1 Capsule(s) PO daily 03/19/2015 03/29/2015 Inactive Dexilant 60 mg capsule, delayed release RxNorm: 938934 1 Capsule(s) PO daily 03/19/2015 03/18/2015 Inactive Diflucan 150 mg tablet RxNorm: 858606 1 Tablet(s) PO every other day x7 doses 03/19/2015 03/21/2015 Inactive hydrocodone 7.5 mg-acetaminophen 325 mg tablet RxNorm: 738253 1 Tablet(s) PO q 6 hours prn for pain 02/27/2015 03/28/2015 Inactive Lasix 20 mg tablet RxNorm: 637011 TAKE 2 TABLETS BY MOUTH EVERY MORNING AND 1 TABLET BY MOUTH AT 3PM 02/27/20152014 Inactive omeprazole 20 mg capsule,delayed release RxNorm: 058587 1 CAPSULE(S) PO DAILY TAKE 1 CAPSULE BY MOUTH TWICE DAILY 02/26/2015 10/26/2017 Inactive Zofran 4 mg tablet RxNorm: 346304 1 Tablet(s) PRN TAKE 1 TABLET BY MOUTH EVERY 4 TO 6 HOURS NEEDED 02/24/20152014 Inactive fluconazole 150 mg tablet RxNorm: 532133 1 Tablet(s) PO every other day x 5 doses 02/19/2015 02/28/2015 Inactive cyclobenzaprine 10 mg tablet RxNorm: 669679 TABLET(S) TABLET(S) 1 TABLET(S) PO NEEDED TAKE 1 TABLET BY MOUTH EVERY 8 HOURS NEEDED 201403/29/2015 Inactive early fill- pt lost med hydrocodone 7.5 mg-acetaminophen 325 mg tablet RxNorm: 754164 1 Tablet(s) PO q 6 hours prn for pain 01/29/2015 02/26/2015 Inactive Xanax 0.5 mg tablet RxNorm: 510753 Tablet(s) TAKE 1 TABLET BY MOUTH THREE TIMES DAILY 01/29/2015 02/27/2015 Inactive Bactroban 2 % topical ointment RxNorm: 148535 1 APPLICATION TOP BID 01/26/2015 10/26/2015 Inactive Bactroban 2 % topical ointment RxNorm: 873535 1 Application TOP BID 01/15/2015 01/25/2015 Inactive doxycycline hyclate 100 mg tablet RxNorm: 614963 1 Tablet(s) PO BID 01/15/2015 01/21/2015 Inactive nystatin 100,000 unit/mL oral suspension RxNorm: 190157 5 Milliliter(s) PO QID 01/15/2015 01/24/2015 Inactive Cartia XT 180 mg capsule,extended release RxNorm: 693783 1 CAPSULE(S) PO DAILY TAKE 1 CAPSULE BY MOUTH AT BEDTIME ..TAKE THIS IN ADDITION TO 240 MG IN THE MORNING 01/13/2015 07/13/2015 Inactive Lasix 20 mg tablet RxNorm: 319338 TAKE 2 TABLETS BY MOUTH EVERY MORNING AND 1 TABLET BY MOUTH AT 3PM 01/08/20152014 Inactive fluconazole 150 mg tablet RxNorm: 659163 1 Tablet(s) PO daily 01/01/2015 01/05/2015 Inactive hydrocodone 7.5 mg-acetaminophen 325 mg tablet RxNorm: 468622 1 Tablet(s) PO q 6 hours prn for pain 01/01/2015 01/28/2015 Inactive colestipol 1 gram tablet RxNorm: 4279807 1 TABLET(S) PO BID TAKE 1 TABLET BY MOUTH TWICE DAILY 12/18/2014 06/15/2015 Inactive colestipol 1 gram tablet RxNorm: 7661796 1 TABLET(S) PO BID TAKE 1 TABLET BY MOUTH TWICE DAILY 12/18/2014 09/13/2015 Inactive Lasix 20 mg tablet RxNorm: 461845 TAKE 2 TABLETS BY MOUTH EVERY MORNING AND 2 TABLETS AND AT 3PM 12/11/2014 12/25/2014 Inactive cyclobenzaprine 10 mg tablet RxNorm: 066467 TABLET(S) 1 TABLET(S) PO NEEDED TAKE 1 TABLET BY MOUTH EVERY 8 HOURS NEEDED 12/11/2014 05/31/2017 Inactive Lasix 20 mg tablet RxNorm: 409401 Tablet(s) TABLET(S) PO TAKE 2 TABLETS BY MOUTH EVERY MORNING AND 1 TABLET BY MOUTH AT 3 PM 12/10/2014 12/10/2014 Inactive fill early- pt lost them cyclobenzaprine 10 mg tablet RxNorm: 914939 Tablet(s) TABLET(S) 1 TABLET(S) PO NEEDED TAKE 1 TABLET BY MOUTH EVERY 8 HOURS NEEDED 201402/15/2015 Inactive early fill- pt lost med cyclobenzaprine 10 mg tablet RxNorm: 863637 TABLET(S) 1 TABLET(S) PO NEEDED TAKE 1 TABLET BY MOUTH EVERY 8 HOURS NEEDED 12/02/2014 12/09/2014 Inactive hydrocodone 7.5 mg-acetaminophen 325 mg tablet RxNorm: 364011 1 Tablet(s) PO q 6 hours prn for pain 12/01/2014 12/30/2014 Inactive diltiazem ER (XR/XT) 240 mg capsule,extended release, controlled RxNorm: 611940 TAKE 1 CAPSULE BY MOUTH DAILY 11/30/2014 07/13/2015 Inactive Xanax 0.5 mg tablet RxNorm: 532689 1 Tablet(s) PO TID PRN as needed 11/19/2014 11/19/2014 Inactive (Appended: Controlled substance eRx refill - RxReferenceNumber: [id number]|1|0|1) Xanax 0.5 mg tablet RxNorm: 291113 TAKE 1 TABLET BY MOUTH THREE TIMES DAILY 11/19/2014 12/18/2014 Inactive Toprol XL 100 mg tablet,extended release RxNorm: 760147 TAKE 1 TABLET BY MOUTH TWICE DAILY 11/06/2014 07/15/2015 Inactive Diflucan 150 mg tablet RxNorm: 642331 1 Tablet(s) PO every other day x7 doses 11/05/2014 11/07/2014 Inactive omeprazole 20 mg capsule,delayed release RxNorm: 571228 1 Capsule(s) PO daily TAKE 1 CAPSULE BY MOUTH TWICE DAILY 11/04/2014 02/01/2015 Inactive cyclobenzaprine 10 mg tablet RxNorm: 031802 TABLET(S) 1 TABLET(S) PO NEEDED TAKE 1 TABLET BY MOUTH EVERY 8 HOURS NEEDED 10/28/2014 12/01/2014 Inactive hydrocodone 7.5 mg-acetaminophen 325 mg tablet RxNorm: 669086 1 Tablet(s) PO q 6 hours prn for pain 10/21/2014 11/19/2014 Inactive gabapentin 600 mg tablet RxNorm: 405416 1.5 Tablet(s) PO TID 04/30/2015 Inactive Xanax 0.5 mg tablet RxNorm: 972964 Tablet(s) TAKE 1 TABLET BY MOUTH THREE TIMES DAILY 10/01/2014 10/30/2014 Inactive (Response to an electronic controlled substance refill request - RxReferenceNumber: [id number]|1|0|1) Xanax 0.25 mg tablet RxNorm: 441807 1 Tablet(s) PO Q8 PRN as needed 09/30/2014 09/30/2014 Inactive Lasix 20 mg tablet RxNorm: 917326 Tablet(s) TAKE 2 TABLETS BY MOUTH EVERY MORNING AND 2 TABLETS BY MOUTH AT 3 PM 09/30/2014 11/12/2014 Inactive Victoza 3-Babak 0.6 mg/0.1 mL (18 mg/3 mL) subcutaneous pen injector RxNorm: 826998 1.2 MILLIGRAM(S) SQ DAILY 0.6 X 2 WEEKS THEN INCREASE TO 1.2MG DAILY 09/26/2014 04/13/2015 Inactive Xanax 0.5 mg tablet RxNorm: 128535 TAKE 1 TABLET BY MOUTH THREE TIMES DAILY 09/25/2014 09/30/2014 Inactive (Response to an electronic controlled substance refill request - RxReferenceNumber: [id number]|1|0|1) Zofran 4 mg tablet RxNorm: 598680 TAKE 1 TABLET BY MOUTH EVERY 4 TO 6 HOURS NEEDED 09/25/2014 09/27/2014 Inactive hydrocodone 7.5 mg-acetaminophen 325 mg tablet RxNorm: 051612 1 Tablet(s) PO q 6 hours prn for pain 09/19/2014 10/18/2014 Inactive cyclobenzaprine 10 mg tablet RxNorm: 176811 TABLET(S) 1 TABLET(S) PO NEEDED TAKE 1 TABLET BY MOUTH EVERY 8 HOURS NEEDED 09/15/2014 10/27/2014 Inactive Lasix 20 mg tablet RxNorm: 912596 Tablet(s) TAKE 2 TABLETS BY MOUTH EVERY MORNING AND 2 TABLETS BY MOUTH AT 3 PM 09/08/2014 09/29/2014 Inactive Lasix 20 mg tablet RxNorm: TAKE 2 TABLETS BY MOUTH EVERY MORNING AND 2 TABLETS BY MOUTH AT 3 PM 08/21/20142014 Inactive hydrocodone 7.5 mg-acetaminophen 325 mg tablet RxNorm: 490141 1 Tablet(s) PO q 6 hours prn for pain 08/21/2014 09/18/2014 Inactive Diflucan 150 mg tablet RxNorm: 197230 1 Tablet(s) PO every other day 08/15/2014 08/17/2014 Inactive cyclobenzaprine 10 mg tablet RxNorm: 358619 Tablet(s) 1 TABLET(S) PO NEEDED TAKE 1 TABLET BY MOUTH EVERY 8 HOURS NEEDED 08/12/2014 09/14/2014 Inactive Zofran 4 mg tablet RxNorm: 877464 TAKE 1 TABLET BY MOUTH EVERY 4 TO 6 HOURS NEEDED 07/31/2014 08/02/2014 Inactive Effexor XR 37.5 mg capsule,extended release RxNorm: 329849 CAPSULE(S) PO TAKE 2 CAPSULES BY MOUTH EVERY MORNING AND 1 CAPSULE BY MOUTH EVERY NIGHT AT BEDTIME 07/28/2014 02/15/2016 Inactive Lasix 20 mg tablet RxNorm: TAKE 2 TABLETS BY MOUTH EVERY MORNING AND 2 TABLETS BY MOUTH AT 3 PM 07/22/20142014 Inactive Diflucan 150 mg tablet RxNorm: 338004 1 Tablet(s) PO daily 06/201407/23/2014 Inactive hydrocodone 7.5 mg-acetaminophen 325 mg tablet RxNorm: 707788 1 Tablet(s) PO q 6 hours prn for pain 07/14/2014 08/12/2014 Inactive Synthroid 88 mcg tablet RxNorm: 891785 1 TABLET(S) PO DAILY 10/11/2014 Inactive Effexor XR 37.5 mg capsule,extended release RxNorm: 685493 Capsule(s) PO TAKE 2 CAPSULES BY MOUTH EVERY MORNING AND 1 CAPSULE BY MOUTH EVERY NIGHT AT BEDTIME 07/07/2014 04/09/2015 Inactive Effexor XR 37.5 mg capsule,extended release RxNorm: 898929 TAKE 2 CAPSULES BY MOUTH EVERY MORNING AND 1 CAPSULE BY MOUTH EVERY NIGHT AT BEDTIME 07/07/2014 01/02/2015 Inactive WelChol 625 mg tablet RxNorm: 281385 3 TABLET(S) PO BID 201410/04/2014 Inactive WelChol 625 mg tablet RxNorm: 709372 3 Tablet(s) PO BID 201402/01/2015 Inactive Zofran 4 mg tablet RxNorm: 343651 TAKE 1 TABLET BY MOUTH EVERY 4 TO 6 HOURS NEEDED 07/03/2014 07/05/2014 Inactive Lasix 20 mg tablet RxNorm: 392626 TAKE 2 TABLETS BY MOUTH EVERY MORNING AND 2 TABLETS BY MOUTH AT 3 PM 06/26/20142014 Inactive Diflucan 150 mg tablet RxNorm: 647403 1 Tablet(s) PO daily 06/19/2014 Inactive Promethazine VC 6.25 mg-5 mg/5 mL syrup RxNorm: 8781497 1-2 Teaspoon(s) PO Q6 PRN as needed 06/12/2014 07/21/2015 Inactive hydrocodone 7.5 mg-acetaminophen 325 mg tablet RxNorm: 433788 1 Tablet(s) PO q 6 hours prn for pain 06/03/2014 07/02/2014 Inactive Levaquin 500 mg tablet RxNorm: 444304 1 Tablet(s) PO daily 01/201506/05/2014 Inactive cyclobenzaprine 10 mg tablet RxNorm: 494201 Tablet(s) 1 TABLET(S) PO NEEDED TAKE 1 TABLET BY MOUTH EVERY 8 HOURS NEEDED 05/26/2014 No Stop Date Active cyclobenzaprine 10 mg tablet RxNorm: 395236 1 TABLET(S) PO NEEDED TAKE 1 TABLET BY MOUTH EVERY 8 HOURS NEEDED 05/26/2014 08/11/2014 Inactive Lasix 20 mg tablet RxNorm: 762287 Tablet(s) TABLET(S) PO TAKE 2 TABLETS BY MOUTH EVERY MORNING AND 2 TABLET BY MOUTH AT 3 PM 05/12/2014 06/25/2014 Inactive Combivent Respimat 20 mcg-100 mcg/actuation solution for inhalation RxNorm: 3479510 INHALE 1 PUFF BY MOUTH FOUR TIMES DAILY 05/12/2014 11/07/2014 Inactive fluconazole 150 mg tablet RxNorm: 187048 1 Tablet(s) PO UD 05/12/2014 Inactive 1 tab every other day x 5 doses Activella 0.5 mg-0.1 mg tablet RxNorm: 3597189 1 TABLET(S) PO DAILY TAKE 1 TABLET BY MOUTH DAILY FOR MENOPAUSAL SYMPTOM 05/02/2014 09/21/2015 Inactive hydrocodone 7.5 mg-acetaminophen 300 mg tablet RxNorm: 272478 Tablet(s) PO TAKE 1 TABLET BY MOUTH EVERY 6 HOURS NEEDED FOR PAIN 04/21/2014 06/03/2014 Inactive ( Appended: Controlled substance eRx refill - RxReferenceNumber: [id number]|1|0|1 ) Levaquin 500 mg tablet RxNorm: 934793 1 Tablet(s) PO daily 04/21/2014 Inactive Diflucan 150 mg tablet RxNorm: 201848 1 Tablet(s) PO every other day x 4 doses 04/10/2014 06/16/2014 Inactive Lasix 20 mg tablet RxNorm: 653932 TAKE 2 TABLETS BY MOUTH EVERY MORNING AND 1 TABLET BY MOUTH AT 3 PM 04/10/20142013 Inactive potassium chloride ER 10 mEq tablet,extended release RxNorm: 442928 1 TABLET(S) PO QDAY PRN TAKE WITH LASIX 04/09/2014 Inactive Levaquin 250 mg tablet RxNorm: 800310 1 Tablet(s) PO daily 08/201304/07/2014 Inactive 2 tabs today then 1 tab daily until gone atorvastatin 40 mg tablet RxNorm: 765441 1 Tablet(s) daily 1 TABLET(S) PO DAILY 03/25/2014 04/10/2016 Inactive TAKE 1 TABLET BY MOUTH DAILY (THIS IS AN INCREASE IN DOSAGE) Zofran 4 mg tablet RxNorm: 735494 1 Tablet(s) PO Q4-6H 201307/02/2014 Inactive Xanax 0.5 mg tablet RxNorm: 151119 TAKE 1 TABLET BY MOUTH THREE TIMES DAILY NEEDED 03/19/2014 04/17/2014 Inactive (Response to an electronic controlled substance refill request - RxReferenceNumber: [id number]|1|0|1) hydrocodone 7.5 mg-acetaminophen 300 mg tablet RxNorm: 101036 Tablet(s) PO TAKE 1 TABLET BY MOUTH EVERY 6 HOURS NEEDED FOR PAIN 03/19/2014 04/20/2014 Inactive ( Appended: Controlled substance [id number]|1|0|1 ) atorvastatin 40 mg tablet RxNorm: 989299 1 TABLET(S) PO DAILY 03/10/2014 03/24/2014 Inactive TAKE 1 TABLET BY MOUTH DAILY (THIS IS AN INCREASE IN DOSAGE) WelChol 625 mg tablet RxNorm: 524990 3 Tablet(s) PO BID 201303/06/2014 Inactive WelChol 625 mg tablet RxNorm: 071443 3 Tablet(s) PO BID 201307/04/2014 Inactive Lasix 20 mg tablet RxNorm: 552156 Tablet(s) TABLET(S) PO TAKE 2 TABLETS BY MOUTH EVERY MORNING AND 2 TABLET BY MOUTH AT 3 PM 03/03/2014 05/11/2014 Inactive Lasix 20 mg tablet RxNorm: 594249 TABLET(S) PO TAKE 2 TABLETS BY MOUTH EVERY MORNING AND 1 TABLET BY MOUTH AT 3 PM 02/20/2014 03/02/2014 Inactive gabapentin 600 mg tablet RxNorm: 988956 1.5 Tablet(s) PO TID 09/16/2014 Inactive Synthroid 88 mcg tablet RxNorm: 681537 1 TABLET(S) PO DAILY 05/18/2014 Inactive cyclobenzaprine 10 mg tablet RxNorm: 015389 1 TABLET(S) PO NEEDED TAKE 1 TABLET BY MOUTH EVERY 8 HOURS NEEDED 02/18/2014 05/25/2014 Inactive doxycycline hyclate 100 mg tablet RxNorm: 451193 1 Tablet(s) PO BID 02/13/2014 02/22/2014 Inactive Bactroban 2 % topical ointment RxNorm: 372121 1 Application TOP BID 02/13/2014 03/12/2014 Inactive Victoza 3-Babak 0.6 mg/0.1 mL (18 mg/3 mL) subcutaneous pen injector RxNorm: 958103 1.2 MILLIGRAM(S) SQ DAILY 0.6 X 2 WEEKS THEN INCREASE TO 1.2MG DAILY 02/10/2014 05/10/2014 Inactive albuterol sulfate 1.25 mg/3 mL solution for nebulization RxNorm: 418824 3 MILLILITER(S) INH TID 02/07/20142014 Inactive 1 box Victoza 3-Babak 0.6 mg/0.1 mL (18 mg/3 mL) subcutaneous pen injector RxNorm: 354382 1.8 Milligram(s) SQ daily 0.6 x 2 weeks then increase to 1.2mg daily 01/27/2014 05/26/2014 Inactive Levemir Flexpen 100 unit/mL (3 mL) solution subcutaneous insulin pen RxNorm: 117453 5units sq at hs, increase by 3 Unit(s) SQ at hs every 3days, goal FSBS 170 or less, do not increase above 20units, call doctor with report 01/27/2014 05/26/2014 Inactive hydrocodone 7.5 mg-acetaminophen 300 mg tablet RxNorm: 483967 Tablet(s) PO TAKE 1 TABLET BY MOUTH EVERY 6 HOURS NEEDED FOR PAIN 01/24/2014 03/18/2014 Inactive ( Appended: Controlled substance eRx refill - RxReferenceNumber: [id number]|1|0|1 ) Xanax 0.5 mg tablet RxNorm: 476931 1 Tablet(s) PO TID PRN as needed 01/24/2014 09/21/2014 Inactive (Appended: Controlled substance eRx refill - RxReferenceNumber: [id number]|1|0|1) Xanax 0.5 mg tablet RxNorm: 055331 TAKE 1 TABLET BY MOUTH THREE TIMES DAILY NEEDED 01/23/2014 02/21/2014 Inactive (Response to an electronic controlled substance refill request - RxReferenceNumber: [id number]|1|0|1) hydrocodone 5 mg-acetaminophen 325 mg tablet RxNorm: 512528 TAKE 1 TABLET BY MOUTH EVERY 6 HOURS NEEDED FOR PAIN 01/21/2014 02/19/2014 Inactive (Response to an electronic controlled substance refill request - RxReferenceNumber: [id number]| [id number]|1|0|1) Lasix 20 mg tablet RxNorm: 282864 TAKE 2 TABLETS BY MOUTH EVERY MORNING AND 1 TABLET BY MOUTH AT 3 PM 01/17/20142013 Inactive cyclobenzaprine 10 mg tablet RxNorm: 825019 1 Tablet(s) PO as needed TAKE 1 TABLET BY MOUTH EVERY 8 HOURS NEEDED 01/13/2014 02/17/2014 Inactive Anusol-HC 25 mg suppository RxNorm: 9325633 1 SUPPOSITORY RTL PRN ONE PER RECTUM NEEDED, UP TO TWICE DAILY FOR HEMORRHOID, NO MORE THAN 7 DAYS IN A ROW 01/10/2014 02/06/2014 Inactive Activella 0.5 mg-0.1 mg tablet RxNorm: 5824945 1 Tablet(s) PO daily TAKE 1 TABLET BY MOUTH DAILY FOR MENOPAUSAL SYMPTOM 01/08/2014 05/01/2014 Inactive gabapentin 600 mg tablet RxNorm: 816758 1.5 Tablet(s) PO TID 02/18/2014 Inactive gabapentin 600 mg tablet RxNorm: 370401 1.5 Tablet(s) PO TID 01/01/2014 Inactive hydrocodone 7.5 mg-acetaminophen 300 mg tablet RxNorm: 514998 Tablet(s) PO TAKE 1 TABLET BY MOUTH EVERY 6 HOURS NEEDED FOR PAIN 12/12/2013 01/23/2014 Inactive ( Appended: Controlled substance eRx refill - RxReferenceNumber: [id number]|1|0|1 ) Levaquin 250 mg tablet RxNorm: 508543 1 Tablet(s) PO daily 12/18/2013 Inactive 2 tabs today then 1 tab daily until gone Diflucan 150 mg tablet RxNorm: 664549 1 Tablet(s) PO daily 12/16/2013 Inactive do not stat until levaquin is completed Cartia XT 180 mg capsule,extended release RxNorm: 767093 1 CAPSULE(S) PO DAILY TAKE 1 CAPSULE BY MOUTH AT BEDTIME ..TAKE THIS IN ADDITION TO 240 MG IN THE MORNING 12/12/2013 12/06/2014 Inactive diltiazem ER (XR/XT) 240 mg capsule,extended release, controlled RxNorm: 749606 1 Capsule(s) PO daily TAKE 1 CAPSULE BY MOUTH EVERY DAY 11/28/2014 Inactive Effexor XR 37.5 mg capsule,extended release RxNorm: 176740 Capsule(s) PO TAKE 2 CAPSULES BY MOUTH EVERY MORNING AND 1 CAPSULE BY MOUTH EVERY NIGHT AT BEDTIME 12/04/2013 07/06/2014 Inactive Lasix 20 mg tablet RxNorm: TABLET(S) PO TAKE 2 TABLETS BY MOUTH EVERY MORNING AND 1 TABLET BY MOUTH AT 3 PM 12/04/2013 12/09/2014 Inactive Voltaren 1 % topical gel RxNorm: 681049 4 Gram(s) TOP QID 11/2703/26/2014 Inactive Cartia XT 180 mg capsule,extended release RxNorm: 253646 1 Capsule(s) PO daily TAKE 1 CAPSULE BY MOUTH AT BEDTIME ..TAKE THIS IN ADDITION TO 240 MG IN THE MORNING 11/27/2013 01/12/2015 Inactive Lasix 20 mg tablet RxNorm: TABLET(S) PO TAKE 2 TABLETS BY MOUTH EVERY MORNING AND 1 TABLET BY MOUTH AT 3 PM 11/26/2013 02/19/2014 Inactive colestipol 1 gram tablet RxNorm: 0259381 1 Tablet(s) PO BID TAKE 1 TABLET BY MOUTH TWICE DAILY 11/26/2013 11/20/2014 Inactive cyclobenzaprine 10 mg tablet RxNorm: 076386 Tablet(s) PO TAKE 1 TABLET BY MOUTH EVERY 8 HOURS NEEDED 11/21/20132013 Inactive Diflucan 150 mg tablet RxNorm: 569836 1 Tablet(s) PO daily TAKE 1 TABLET BY MOUTH EVERY OTHER DAY FOR 8 DOSES 11/14/201306/2013 Inactive peak flow meter-inh assist dev kit RxNorm: 1 dose Miscellaneous PRN 11/14/2013 10/27/2017 Inactive Effexor XR 37.5 mg capsule,extended release RxNorm: 689795 Capsule(s) PO TAKE 2 CAPSULES BY MOUTH EVERY MORNING AND 1 CAPSULE BY MOUTH EVERY NIGHT AT BEDTIME 11/04/2013 12/03/2013 Inactive Anusol-HC 25 mg suppository RxNorm: 7304050 1 Suppository RTL PRN one per rectum as needed, up to twice daily for hemorrhoid, no more than 7 days in a row 10/23/2013 10/22/2013 Inactive Anusol-HC 25 mg suppository RxNorm: 5472508 1 Suppository RTL PRN one per rectum as needed, up to twice daily for hemorrhoid, no more than 7 days in a row 10/23/2013 01/09/2014 Inactive Activella 0.5 mg-0.1 mg tablet RxNorm: 2883393 Tablet(s) PO TAKE 1 TABLET BY MOUTH DAILY FOR MENOPAUSAL SYMPTOM 10/21/2013 01/07/2014 Inactive cyclobenzaprine 10 mg tablet RxNorm: 524185 Tablet(s) PO TAKE 1 TABLET BY MOUTH EVERY 8 HOURS NEEDED 10/21/20132013 Inactive Lasix 20 mg tablet RxNorm: Tablet(s) PO TAKE 2 TABLETS BY MOUTH EVERY MORNING AND 1 TABLET BY MOUTH AT 3 PM 10/17/2013 02/25/2016 Inactive Bactroban 2 % topical ointment RxNorm: 729335 1 Application TOP BID 10/10/2013 11/06/2013 Inactive Zofran 4 mg tablet RxNorm: 927669 1 Tablet(s) PO Q4-6H 201303/20/2014 Inactive Bactroban 2 % topical ointment RxNorm: 652459 1 Application TOP BID 09/27/2013 10/09/2013 Inactive hydrocodone 5 mg-acetaminophen 325 mg tablet RxNorm: 330847 Tablet(s) PO TAKE 1 TABLET BY MOUTH EVERY 6 HOURS NEEDED FOR PAIN 09/26/2013 12/11/2013 Inactive ( Appended: Controlled substance eRx refill - RxReferenceNumber: [id number]|1|0|1 ) hydrocodone 5 mg-acetaminophen 325 mg tablet RxNorm: 900762 1 Tablet(s) PO Q6 PRN 09/26/2013 01/24/2014 Inactive cyclobenzaprine 10 mg tablet RxNorm: 538830 Tablet(s) PO TAKE 1 TABLET BY MOUTH EVERY 8 HOURS NEEDED 09/16/2013 No Stop Date Active omeprazole 20 mg capsule,delayed release RxNorm: 349836 Capsule(s) PO TAKE 1 CAPSULE BY MOUTH TWICE DAILY 09/02/2013 Inactive Lasix 20 mg tablet RxNorm: Tablet(s) PO TAKE 2 TABLETS BY MOUTH EVERY MORNING AND 1 TABLET BY MOUTH AT 3 PM 09/02/2013 04/10/2016 Inactive Diflucan 150 mg tablet RxNorm: 893034 Tablet(s) PO TAKE 1 TABLET BY MOUTH EVERY OTHER DAY FOR 8 DOSES 08/29/20132013 Inactive Effexor XR 37.5 mg capsule,extended release RxNorm: 681900 Capsule(s) PO TAKE 2 CAPSULES BY MOUTH EVERY MORNING AND 1 CAPSULE BY MOUTH EVERY NIGHT AT BEDTIME 08/29/2013 11/03/2013 Inactive diltiazem ER (XR/XT) 240 mg capsule,extended release, controlled RxNorm: 831328 Capsule(s) PO TAKE 1 CAPSULE BY MOUTH EVERY DAY 201312/03/2013 Inactive Xanax 0.5 mg tablet RxNorm: 442933 1 Tablet(s) PO TID PRN 11/2013 No Stop Date Active (Appended: Controlled substance eRx refill - RxReferenceNumber: [id number]| [id number]|1|0|1) colestipol 1 gram tablet RxNorm: 3530347 Tablet(s) PO TAKE 1 TABLET BY MOUTH TWICE DAILY 08/26/2013 11/25/2013 Inactive Victoza 3-Babak 0.6 mg/0.1 mL (18 mg/3 mL) subcutaneous pen injector RxNorm: 246208 1.2 Milligram(s) SQ daily 0.6 x 2 weeks then increase to 1.2mg daily 08/19/2013 12/16/2013 Inactive Synthroid 88 mcg tablet RxNorm: 355180 1 Tablet(s) PO daily 12/09/2013 Inactive Lasix 20 mg tablet RxNorm: Tablet(s) PO TAKE 2 TABLETS BY MOUTH EVERY MORNING AND 2 TABLETS BY MOUTH AT 3 PM 08/12/2013 10/18/2016 Inactive Xanax 0.5 mg tablet RxNorm: 418387 1 Tablet(s) PO TID PRN No Stop Date Active (Appended: Controlled substance eRx refill - RxReferenceNumber: [id number]| [id number]|1|0|1) Lasix 20 mg tablet RxNorm: Tablet(s) PO TAKE 2 TABLETS BY MOUTH EVERY MORNING AND 1 TABLET BY MOUTH AT 3 PM 08/07/2013 08/11/2013 Inactive Voltaren 1 % topical gel RxNorm: 967499 4 Gram(s) TOP QID 08/0111/26/2013 Inactive Zyvox 600 mg tablet RxNorm: 761139 1 Tablet(s) PO BID 201307/27/2013 Inactive please call the office is this is too expensive for the pt Zyvox 600 mg tablet RxNorm: 748681 1 Tablet(s) PO BID 201307/17/2013 Inactive hydrocodone 5 mg-acetaminophen 325 mg tablet RxNorm: 1940402 1 Tablet(s) PO Q6 PRN 07/15/2013 09/26/2013 Inactive Zofran 4 mg tablet RxNorm: 936136 1 Tablet(s) PO Q4-6H 201310/02/2013 Inactive Lasix 20 mg tablet RxNorm: 633473 Tablet(s) PO TAKE 2 TABLETS BY MOUTH EVERY MORNING AND 1 TABLET BY MOUTH AT 3 PM 07/11/2013 10/18/2016 Inactive cyclobenzaprine 10 mg tablet RxNorm: 315303 1 Tablet(s) PO Q8 PRN 06/27/2013 08/25/2013 Inactive gabapentin 600 mg tablet RxNorm: 615049 1.5 Tablet(s) PO TID 01/02/2014 Inactive Lasix 20 mg tablet RxNorm: 927848 Tablet(s) PO TAKE 2 TABLETS BY MOUTH EVERY MORNING AND 1 TABLET BY MOUTH AT 3 PM 06/17/2013 07/10/2013 Inactive hydrocodone 5 mg-acetaminophen 325 mg tablet RxNorm: 213928 1 Tablet(s) PO Q6 PRN 06/10/2013 07/14/2013 Inactive hydrocortisone 2.5 % rectal cream RxNorm: 881910 1 Suppository RTL BID PRN 06/10/2013 06/29/2013 Inactive Flexeril 10 mg tablet RxNorm: 329482 1 Tablet(s) PO Q8 PRN 06/0406/26/2013 Inactive diltiazem ER (XR/XT) 240 mg capsule,extended release, controlled RxNorm: 056497 Capsule(s) PO TAKE 1 CAPSULE BY MOUTH EVERY DAY 201310/26/2017 Inactive omeprazole 20 mg capsule,delayed release RxNorm: 881598 Capsule(s) PO TAKE 1 CAPSULE BY MOUTH TWICE DAILY 05/24/2013 Inactive colestipol 1 gram tablet RxNorm: 2959117 Tablet(s) PO TAKE 1 TABLET BY MOUTH TWICE DAILY 05/23/2013 04/21/2016 Inactive Januvia 100 mg tablet RxNorm: 341431 1 Tablet(s) PO daily 201308/18/2013 Inactive Activella 0.5 mg-0.1 mg tablet RxNorm: 325292 Tablet(s) PO TAKE 1 TABLET BY MOUTH DAILY FOR MENOPAUSAL SYMPTOM 05/17/2013 Inactive Xanax 0.5 mg tablet RxNorm: 307371 1 Tablet(s) PO TID PRN 08/06/2013 Inactive (Appended: Controlled substance eRx refill - RxReferenceNumber: [id number]| [id number]|1|0|1) Kenalog 40 mg/mL suspension for injection RxNorm: 5882830 Milliliter(s) Inj 05/07/2013 05/07/2013 Inactive levofloxacin 500 mg tablet RxNorm: 647881 1 Tablet(s) PO daily pt to take 500mg on day#1, 3, 5, 7 and 1/2 tablet on days 2, 4, 6, and 8 05/0705/14/2013 Inactive Lyrica 50 mg capsule RxNorm: 147639 1 Capsule(s) PO TID 201206/26/2013 Inactive hydrocodone 5 mg-acetaminophen 500 mg tablet RxNorm: 572288 1 Tablet(s) PO Q6 PRN 04/22/2013 06/09/2013 Inactive Zofran 4 mg tablet RxNorm: 244941 1 Tablet(s) PO Q4-6H 201207/14/2013 Inactive Zofran 4 mg tablet RxNorm: 979395 1 Tablet(s) PO Q6 PRN 04/0404/08/2013 Inactive hydrocodone 5 mg-acetaminophen 500 mg tablet RxNorm: 296417 1 Tablet(s) PO Q6 PRN 03/21/2013 04/21/2013 Inactive Diflucan 150 mg tablet RxNorm: 831130 1 Tablet(s) PO every other day 1 pill po every other day x 8 doses 03/19/201306/26 Inactive potassium chloride ER 10 mEq tablet,extended release RxNorm: 663020 1 Tablet(s) PO QDAY PRN take with lasix 03/07/201302/2014 Inactive potassium chloride ER 10 mEq tablet,extended release RxNorm: 997874 1 Tablet(s) PO QDAY PRN take with lasix 03/04/2013 Inactive fluconazole 150 mg tablet RxNorm: 576173 1 Tablet(s) PO daily 03/01/2013 02/28/2013 Inactive fluconazole 150 mg tablet RxNorm: 492797 1 Tablet(s) PO daily 03/01/2013 03/05/2013 Inactive Combivent 18 mcg-103 mcg/actuation Aerosol Inhaler RxNorm: 476675 2 Puff(s) INH QID 02/12/2013 02/12/2013 Inactive Zofran 4 mg tablet RxNorm: 959210 1 Tablet(s) PO Q6 PRN 02/1104/03/2013 Inactive Lasix 20 mg tablet RxNorm: 158877 1 Tablet(s) PO BID one pill in morning and one pill in afternoon (3pm) 02/04/2013 Inactive Xopenex HFA 45 mcg/actuation Aerosol Inhaler RxNorm: 637206 2 INH QID 01/29/2013 09/21/2015 Inactive Effexor XR 37.5 mg capsule,extended release RxNorm: 440895 2 q am and 1 at hs Capsule(s) PO TAKE 2 CAPSULES BY MOUTH EVERY MORNING AND 1 CAPSULE EVERY NIGHT AT BEDTIME 01/29/2013 02/15/2016 Inactive fluconazole 150 mg tablet RxNorm: 542693 1 Tablet(s) PO daily 01/29/2013 02/02/2013 Inactive hydrocodone 5 mg-acetaminophen 500 mg tablet RxNorm: 512306 1 Tablet(s) PO Q6 PRN 01/29/2013 03/20/2013 Inactive Effexor XR 37.5 mg capsule,extended release RxNorm: 894792 Capsule(s) PO 01/29/2013 08/28/2013 Inactive TAKE 2 CAPSULES BY MOUTH EVERY MORNING AND 1 CAPSULE EVERY NIGHT AT BEDTIME doxycycline hyclate 100 mg tablet RxNorm: 701570 1 Tablet(s) PO BID 01/01/2013 01/10/2013 Inactive doxycycline hyclate 100 mg tablet RxNorm: 364287 1 Tablet(s) PO BID 01/01/2013 12/31/2012 Inactive Synthroid 75 mcg tablet RxNorm: 759630 1 Tablet(s) PO daily 06/29/2013 Inactive Synthroid 75 mcg tablet RxNorm: 375459 1 Tablet(s) PO daily 12/31/2012 Inactive Xanax 0.5 mg tablet RxNorm: 895093 Tablet(s) PO TAKE 1/2 TO 1 TABLET BY MOUTH EVERY 8 HOURS NEEDED FOR ANXIETY 12/27/2012 05/06/2013 Inactive (Appended: Controlled substance [facility]Rx [facility]ill [id number]|550209|1|0|1) Lasix 20 mg tablet RxNorm: 442086 1 Tablet(s) PO daily 201202/03/2013 Inactive Santyl 250 unit/gram Topical Ointment RxNorm: 1861842 1 Application TOP daily 12/20/2012 12/29/2012 Inactive Levaquin 500 mg tablet RxNorm: 879072 1 Tablet(s) PO daily 05/201212/26/2012 Inactive acyclovir 400 mg tablet RxNorm: 726082 1 Tablet(s) PO TID 12/0312/09/2012 Inactive acyclovir 400 mg tablet RxNorm: 776549 1 Tablet(s) PO TID 12/0312/02/2012 Inactive fluconazole 150 mg tablet RxNorm: 776539 1 Tablet(s) PO daily 11/26/2012 11/30/2012 Inactive Effexor XR 37.5 mg capsule,extended release RxNorm: 150262 Capsule(s) PO TAKE 2 CAPSULES BY MOUTH EVERY MORNING AND 1 CAPSULE EVERY NIGHT AT BEDTIME 11/14/2012 01/28/2013 Inactive albuterol sulfate 1.25 mg/3 mL solution for nebulization RxNorm: 481892 3 Milliliter(s) INH TID 10/29/20122012 Inactive 1 box Cartia XT 180 mg capsule,extended release RxNorm: 006026 1 Capsule(s) PO daily TAKE 1 CAPSULE BY MOUTH AT BEDTIME ..TAKE THIS IN ADDITION TO 240 MG IN THE MORNING 10/29/2012 11/26/2013 Inactive acyclovir 800 mg tablet RxNorm: 189540 1 Tablet(s) PO BID 10/2911/04/2012 Inactive Diflucan 150 mg tablet RxNorm: 281967 1 Tablet(s) PO daily 10/14/2012 Inactive TAKE 1 TABLET BY MOUTH EVERY DAY Toprol XL 100 mg tablet,extended release RxNorm: 131018 1 Tablet(s) PO BID 10/11/2012 09/05/2013 Inactive Zithromax Z-Babak 250 mg tablet RxNorm: 706546 Tablet(s) PO UD as directed. 1 refill , please take back to back 10/05/2012 No Stop Date Active Kenalog 40 mg/mL Susp for Injection RxNorm: 1386172 1 Milliliter(s) Inj QID 09/21/2012 05/07/2013 Inactive fluconazole 150 mg tablet RxNorm: 842597 1 Tablet(s) PO every other day x 5 doses 09/12/2012 11/25/2012 Inactive levothyroxine 50 mcg tablet RxNorm: 220036 1 Tablet(s) PO daily 09/06/2012 12/31/2012 Inactive atorvastatin 40 mg tablet RxNorm: 731441 1 Tablet(s) PO daily 09/06/2012 08/31/2013 Inactive TAKE 1 TABLET BY MOUTH DAILY (THIS IS AN INCREASE IN DOSAGE) Xanax 0.5 mg tablet RxNorm: 860658 Tablet(s) PO TAKE 1/2 TO 1 TABLET BY MOUTH EVERY 8 HOURS NEEDED FOR ANXIETY 08/27/2012 12/26/2012 Inactive (Appended: Controlled substance eRx refill - RxReferenceNumber: [id number]|1|0|1) Zofran 4 mg tablet RxNorm: 227646 1 Tablet(s) PO Q6 PRN 08/1302/10/2013 Inactive Cipro 500 mg tablet RxNorm: 359403 1 Tablet(s) PO BID 201208/07/2012 Inactive Cipro 500 mg tablet RxNorm: 117743 1 Tablet(s) PO BID 201208/12/2012 Inactive Flagyl 500 mg tablet RxNorm: 108728 1 Tablet(s) PO TID 201208/12/2012 Inactive cefdinir 300 mg capsule RxNorm: 026774 1 Capsule(s) PO BID 08/201207/29/2012 Inactive nystatin 100,000 unit/mL Oral Susp RxNorm: 108393 6 Unit(s) PO QID 07/06/2012 07/15/2012 Inactive Kenalog 40 mg/mL Susp for Injection RxNorm: 5143518 1 Milliliter(s) Inj 07/06/2012 07/06/2012 Inactive Zithromax 500 mg tablet RxNorm: 4238119 1 Tablet(s) PO daily 07/10/2012 Inactive metformin 850 mg tablet RxNorm: 639183 1/2 Tablet(s) PO TID 09/201208/24/2012 Inactive TAKE 1 TABLET BY MOUTH IN THE MORNING, 1/2 TABLET AT NOON, AND 1 TABLET IN THE EVENING Lyrica 50 mg capsule RxNorm: 359879 1 Capsule(s) PO TID 201206/25/2012 Inactive Diflucan 150 mg tablet RxNorm: 170357 1 Tablet(s) PO daily 05/201206/25/2012 Inactive TAKE 1 TABLET BY MOUTH EVERY DAY Levaquin 500 mg tablet RxNorm: 102861 1 Tablet(s) PO daily 06/19/2012 Inactive Pneumovax 23 25 mcg/0.5 mL Injection RxNorm: 169161 1/2 Milliliter(s) Inj 06/07/2012 06/07/2012 Inactive metformin 850 mg tablet RxNorm: 687061 1/2 Tablet(s) PO BID 06/25/2012 Inactive TAKE 1 TABLET BY MOUTH IN THE MORNING, 1/2 TABLET AT NOON, AND 1 TABLET IN THE EVENING cefdinir 300 mg capsule RxNorm: 143328 1 Capsule(s) PO BID 02/201305/30/2012 Inactive cefdinir 300 mg capsule RxNorm: 176155 1 Capsule(s) PO BID 02/201306/06/2012 Inactive prednisone 10 mg tablets in a dose pack RxNorm: 891063 Tablet(s) PO UD 6-5-4-3-2- 1 05/31/2012 05/06/2013 Inactive Cipro 500 mg tablet RxNorm: 778519 1 Tablet(s) PO BID 201206/03/2012 Inactive Xanax 0.5 mg tablet RxNorm: 730846 Tablet(s) PO TAKE 1/2 TO 1 TABLET BY MOUTH EVERY 8 HOURS NEEDED FOR ANXIETY 05/28/2012 08/27/2012 Inactive (Appended: Controlled substance eRx refill - RxReferenceNumber: [id number]|1|0|1) Cartia XT 180 mg capsule,extended release RxNorm: 554828 Capsule(s) PO TAKE 1 CAPSULE BY MOUTH AT BEDTIME ..TAKE THIS IN ADDITION TO 240 MG IN THE MORNING 05/24/2012 10/28/2012 Inactive Diflucan 150 mg tablet RxNorm: 295872 1 Tablet(s) PO daily 06/201205/26/2012 Inactive TAKE 1 TABLET BY MOUTH EVERY DAY Cartia XT 240 mg capsule,extended release RxNorm: 955249 1 Capsule(s) PO QAM 05/23/2012 09/06/2012 Inactive in addition to 180mg q pm omeprazole 20 mg capsule,delayed release RxNorm: 390607 Capsule(s) PO TAKE 1 CAPSULE BY MOUTH TWICE DAILY 05/21/2012 Inactive diltiazem ER (XR/XT) 240 mg capsule,extended release, controlled RxNorm: 801331 1 Capsule(s) PO daily TAKE ONE CAPSULE BY MOUTH EVERY DAY 05/21/2012 05/30/2013 Inactive Toprol XL 25 mg tablet,extended release RxNorm: 682834 1 Tablet(s) PO QPM take with 50mg (1/2 tab of 100mg) each evening. Continue 100mg in the morning. 05/17/2012 05/27/2012 Inactive Activella 0.5 mg-0.1 mg tablet RxNorm: 8731796 Tablet(s) PO TAKE 1 TABLET BY MOUTH DAILY FOR MENOPAUSAL SYMPTOM 05/09/2012 05/16/2013 Inactive colestipol 1 gram tablet RxNorm: 0115942 Tablet(s) PO TAKE 1 TABLET BY MOUTH TWICE DAILY 05/08/2012 04/21/2016 Inactive Kenalog 40 mg/mL Susp for Injection RxNorm: 0485517 1 Milliliter(s) Inj 05/02/2012 05/02/2012 Inactive Xanax 0.5 mg tablet RxNorm: 272674 Tablet(s) PO 04/16/2012 05/28/2012 Inactive TAKE 1/2 TO 1 TABLET BY MOUTH EVERY 8 HOURS NEEDED FOR ANXIETY (Appended: Controlled substance eRx refill - RxReferenceNumber: [id number]|1|0|1) Diflucan 150 mg tablet RxNorm: 044397 1 Tablet(s) PO daily 05/22/2012 Inactive TAKE 1 TABLET BY MOUTH EVERY DAY Cipro 500 mg tablet RxNorm: 535131 1 Tablet(s) PO BID 201104/19/2012 Inactive Zithromax Z-Babak 250 mg tablet RxNorm: 444756 Tablet(s) PO UD 05/30/2012 Inactive metformin 850 mg tablet RxNorm: 075584 Tablet(s) PO take one pill by mouth in AM, 1/2 at noon, and 1 pill in the evening. 03/16/2012 06/06/2012 Inactive TAKE 1 TABLET BY MOUTH IN THE MORNING, 1/2 TABLET AT NOON, AND 1 TABLET IN THE EVENING Xanax 0.5 mg tablet RxNorm: 281686 Tablet(s) PO 03/05/2012 04/15/2012 Inactive TAKE 1/2 TO 1 TABLET BY MOUTH EVERY 8 HOURS NEEDED FOR ANXIETY (Appended: Controlled substance eRx refill - RxReferenceNumber: [id number]|1|0|1) potassium chloride ER 10 mEq tablet,extended release RxNorm: 757987 1 Tablet(s) PO QDAY PRN take with lasix 03/05/201204/2013 Inactive potassium chloride ER 10 mEq tablet,extended release RxNorm: 934706 1 Tablet(s) PO QDAY PRN take with lasix 02/28/2012 Inactive Lasix 20 mg tablet RxNorm: 175647 Tablet(s) PO QDAY PRN 02/2708/25/2012 Inactive doxycycline hyclate 100 mg capsule RxNorm: 272374 1 Capsule(s) PO BID 02/27/2012 03/04/2012 Inactive Effexor XR 37.5 mg capsule,extended release RxNorm: 920208 Capsule(s) PO 02/26/2012 01/28/2013 Inactive TAKE 2 CAPSULES BY MOUTH EVERY MORNING AND 1 CAPSULE EVERY NIGHT AT BEDTIME Lomotil 2.5 mg-0.025 mg tablet RxNorm: 3169615 Tablet(s) PO 07/201103/05/2012 Inactive 1 after each loose bm limit 4 per day doxycycline hyclate 100 mg capsule RxNorm: 557323 1 Capsule(s) PO BID 02/15/2012 02/21/2012 Inactive Diflucan 150 mg tablet RxNorm: 125284 Tablet(s) PO daily 201102/21/2012 Inactive TAKE 1 TABLET BY MOUTH EVERY DAY colestipol,micronized 1 gram tablet RxNorm: 3260487 Tablet(s) PO 02/06/2012 04/21/2016 Inactive TAKE 1 TABLET BY MOUTH TWICE DAILY Effexor XR 37.5 mg capsule,extended release RxNorm: 144089 Capsule(s) PO 02/06/2012 02/16/2016 Inactive TAKE 2 CAPSULES BY MOUTH EVERY MORNING AND 1 CAPSULE EVERY NIGHT AT BEDTIME potassium chloride ER 10 mEq tablet,extended release RxNorm: 610176 1 Tablet(s) PO QDAY PRN take with lasix 02/01/201212/2011 Inactive Levaquin 500 mg tablet RxNorm: 989309 1 Tablet(s) PO daily 04/201202/07/2012 Inactive Diflucan 150 mg tablet RxNorm: 761132 Tablet(s) PO 01/27/2012 02/14/2012 Inactive TAKE 1 TABLET BY MOUTH EVERY DAY Effexor XR 37.5 mg capsule,extended release RxNorm: 197526 Capsule(s) PO 01/05/2012 02/05/2012 Inactive TAKE 2 CAPSULES BY MOUTH EVERY MORNING , AND 1 CAPSULE BY MOUTH EVERY NIGHT AT BEDTIME Effexor XR 37.5 mg capsule,extended release RxNorm: 970621 Capsule(s) PO 12/29/2011 01/04/2012 Inactive TAKE 2 CAPSULES BY MOUTH EVERY MORNING , AND 1 CAPSULE BY MOUTH EVERY NIGHT AT BEDTIME Diflucan 150 mg tablet RxNorm: 752533 Tablet(s) PO 12/29/2011 04/09/2012 Inactive TAKE 1 TABLET BY MOUTH EVERY DAY Cipro 500 mg tablet RxNorm: 121673 1 Tablet(s) PO BID 201101/07/2012 Inactive Toprol XL 100 mg tablet,extended release RxNorm: 679362 Tablet(s) PO as doctor directed one tab in am and 1/2 at night 11/30/2011 10/10/2012 Inactive Phenergan 25 mg/mL Injection RxNorm: 109372 Milliliter(s) Inj 11/30/2011 11/30/2011 Inactive Toprol XL 100 mg 24 hr Tab RxNorm: 891777 1.5 Tablet(s) PO as doctor directed one tab in am and 1/2 at night 11/17/201102/2012 Inactive Xopenex HFA 45 mcg/actuation Aerosol Inhaler RxNorm: 549486 2 INH QID 11/08/2011 12/01/2012 Inactive Effexor XR 150 mg 24 hr Cap RxNorm: 796265 1 Capsule(s) PO daily 10/24/2011 01/04/2012 Inactive Xanax 0.5 mg tablet RxNorm: 665195 1/2-1 Tablet(s) PO Q8 PRN 10/20/2011 03/05/2012 Inactive levothyroxine 25 mcg tablet RxNorm: 411523 Tablet(s) PO 201109/05/2012 Inactive TAKE 1 TABLET BY MOUTH DAILY Xanax 0.5 mg Tab RxNorm: 653049 1/2-1 Tablet(s) PO Q8 PRN 09/26/2011 10/19/2011 Inactive potassium chloride ER 10 mEq Tab RxNorm: 811987 1 Tablet(s) PO daily 09/20/2011 09/24/2011 Inactive Lasix 20 mg Tab RxNorm : 759202 1 Tablet(s) PO daily 09/20/2011 09/24/2011 Inactive Xanax 0.5 mg Tab RxNorm: 202633 1/2-1 Tablet(s) PO Q8 PRN 09/12/2011 09/25/2011 Inactive Xanax 0.5 mg Tab RxNorm: 693638 1/2-1 Tablet(s) PO Q8 PRN 08/24/2011 09/11/2011 Inactive Lipitor 20 mg tablet RxNorm: 911956 Tablet(s) PO 08/22/2011 09/05/2012 Inactive TAKE 1 TABLET BY MOUTH DAILY (THIS IS AN INCREASE IN DOSAGE) Cipro 500 mg Tab RxNorm: 124251 1 Tablet(s) PO BID 201110/24/2011 Inactive Flagyl 500 mg Tab RxNorm: 799934 1 Tablet(s) PO TID 201110/24/2011 Inactive Diflucan 150 mg Tab RxNorm: 438377 1 Tablet(s) PO daily 201110/24/2011 Inactive Kenalog 40 mg/mL Susp for Injection RxNorm: 5019931 1 Milliliter(s) Inj 08/01/2011 10/24/2011 Inactive FreeStyle Lancets RxNorm: 1 test Miscellaneous TID 201107/08/2014 Inactive dispense quantity sufficient for three times daily testing for diabetes FreeStyle Test Strips RxNorm: 1 Miscellaneous BID 07/21/2011 08/13/2012 Inactive please give lancets alsodx 250.02 Xanax 0.25 mg Tab RxNorm: 909565 1 Tablet(s) PO Q8 PRN 07/06 No Stop Date Active colestipol 1 gram Tab RxNorm: 7610333 Tablet(s) PO 07/04/2011 04/21/2016 Inactive TAKE 1 TABLET BY MOUTH TWICE DAILY DIRECTED colestipol 1 gram tablet RxNorm: 4884216 1 Tablet(s) PO BID 07/03/2011 Inactive Cartia XT 180 mg capsule,extended release RxNorm: 427759 1 Capsule(s) PO QHS 06/30/2011 11/16/2011 Inactive in addition to 240mg q am venlafaxine 37.5 mg Tab RxNorm: 605726 1 Tablet(s) PO BID 06/2406/29/2011 Inactive prednisone 5 mg Tab RxNorm: 290906 Tablet(s) PO UD 2011 10/24/2011 Inactive six day taper #21 Lyrica 50 mg capsule RxNorm: 935392 1 Capsule(s) PO TID 201108/18/2011 Inactive Diflucan 150 mg tablet RxNorm: 717505 1 Tablet(s) PO daily 06/24/2011 Inactive levofloxacin 500 mg Tab RxNorm: 649522 1 Tablet(s) PO daily 08/15/2011 Inactive azithromycin 250 mg Tab RxNorm: 280737 PO 05/23/2011 06/20/2011 Inactive omeprazole 20 mg capsule,delayed release RxNorm: 343105 Capsule(s) PO 05/10/2011 05/20/2012 Inactive TAKE 1 CAPSULE BY MOUTH TWICE DAILY;Patient requests 90 day supply diltiazem ER (XR/XT) 240 mg capsule,extended release, controlled RxNorm: 268098 Capsule(s) PO 04/19/2011 05/21/2012 Inactive TAKE 1 CAPSULE BY MOUTH EVERY MORNING;Patient requests 90 day supply Kenalog 40 mg/mL Susp for Injection RxNorm: 4311543 1 Milliliter(s) Inj 04/18/2011 06/20/2011 Inactive clindamycin 300 mg Cap RxNorm: 241217 1 Capsule(s) PO BID 04/1806/20/2011 Inactive lisinopril-hydrochlorothiazide 20 mg-12.5 mg Tab RxNorm: 268312 2 Tablet(s) PO daily 04/18/2011 10/24/2011 Inactive fluconazole 150 mg Tab RxNorm: 417109 1 Tablet(s) PO daily 07/201006/20/2011 Inactive Activella 0.5 mg-0.1 mg tablet RxNorm: 3322890 Tablet(s) PO 05/201005/08/2012 Inactive TAKE 1 TABLET BY MOUTH DAILY FOR MENOPAUSAL SYMPTOM diltiazem ER (XR/XT) 240 mg Continuous Release Cap RxNorm: 667787 1 Capsule(s) PO daily 03/17/2011 03/16/2011 Inactive diltiazem ER (XR/XT) 240 mg Continuous Release Cap RxNorm: 506040 Capsule(s) PO 03/17/2011 06/20/2011 Inactive TAKE 1 CAPSULE BY MOUTH EVERY MORNING metformin 850 mg tablet RxNorm: 724853 1 Tablet(s) PO as doctor directed take one pill by mouth in AM, 1/2 at noon, and 1 pill in the evening. 01/21/2011 04/20/2011 Inactive Xopenex 1.25 mg/3 mL solution for nebulization RxNorm: 514226 3 Milliliter(s) INH Q6 PRN No Start Date Active Novolog Flexpen U-100 Insulin aspart 100 unit/mL subcutaneous RxNorm: 3980286 10 units with meals plus SSI in [...] 301-325 Lomotil 2.5 mg-0.025 mg tablet RxNorm: 4002475 Tablet(s) PO No Start Date 02/21/2012 Inactive 1 after each loose bm limit 4 per day Novolog Flexpen U-100 Insulin aspart 100 unit/mL subcutaneous RxNorm: 4958251 10 Unit(s) SQ AC No Start Date 10/26 Inactive with sliding scale-Dr Yanna Judd FlexTouch U-100 100 unit/mL (3 mL) subcutaneous insulin pen RxNorm: 3079803 40 Unit(s) SQ daily No Start Date Inactive gabapentin 600 mg tablet RxNorm: 958689 1 Tablet(s) PO TID No Start Date 06/26/2013 Inactive Effexor XR 37.5 mg capsule,extended release RxNorm: 206494 1 Capsule(s) PO BID No Start Date 10/23/2011 Inactive Levemir FlexTouch 100 unit/mL (3 mL) subcutaneous insulin pen RxNorm: 077682 50 Unit(s) SQ BID No Start Date 04/24/2017 Inactive Combivent Respimat 20 mcg-100 mcg/actuation solution for inhalation RxNorm: 4437518 1 INH QID No Start Date 05/11/2014 Inactive Xanax 0.5 mg Tab RxNorm: 733190 1/2-1 Tablet(s) PO Q8 PRN No Start Date 08/23/2011 Inactive Xopenex HFA 45 mcg/actuation Aerosol Inhaler RxNorm: 336553 2 INH QID No Start Date 11/07/2011 Inactive promethazine 25 mg tablet RxNorm: 914578 1 Tablet(s) PO Q8 as needed No Start Date 08/12/2015 Inactive colestipol 1 gram Tab RxNorm: 8272917 1 Tablet(s) PO BID No Start Date 07/03/2011 Inactive Cartia XT 240 mg capsule,extended release RxNorm: 969486 1 Capsule(s) PO QAM No Start Date 05/22/2012 Inactive in addition to 180mg q pm Lipitor 20 mg Tab RxNorm: 667871 1 Tablet(s) PO daily No Start Date 08/21/2011 Inactive FreeStyle Test Strips RxNorm: 1 Miscellaneous BID No Start Date 07/20/2011 Inactive Toujeo SoloStar U-300 Insulin 300 unit/mL (1.5 mL) subcutaneous pen RxNorm: 2296049 40 Unit(s) SQ BID No Start Date 10/26/2017 Inactive Diflucan 150 mg tablet RxNorm: 582009 1 Tablet(s) PO daily 1 pill po every other day x 8 doses No Start Date 03/18/2013 Inactive hydrocodone 5 mg-acetaminophen 500 mg tablet RxNorm: 706572 1 Tablet(s) PO Q6 PRN No Start Date 01/28/2013 Inactive Lasix 20 mg tablet RxNorm: 286723 Tablet(s) PO QDAY PRN No Start Date 02/27/2012 Inactive Promethazine VC 6.25 mg-5 mg/5 mL Syrup RxNorm: 8143114 1-2 PO Q6 PRN No Start Date 10/07/2013 Inactive promethazine 25 mg tablet RxNorm: 476194 1 Tablet(s) PO Q6 PRN No Start Date 02/09/2017 Inactive digoxin 125 mcg tablet RxNorm: 806364 1 Tablet(s) PO daily No Start Date 06/20/2017 Inactive Xanax 0.25 mg Tab RxNorm: 968812 1 Tablet(s) PO Q8 PRN No Start Date 07/05/2011 Inactive Diflucan 150 mg tablet RxNorm: 062055 1 Tablet(s) PO every other day x 4 doses No Start Date 04/09/2014 Inactive Carafate 100 mg/mL Oral Susp RxNorm: 146881 2 Teaspoon(s) PO daily No Start Date 10/24/2011 Inactive prednisone 5 mg Tab RxNorm: 699643 Tablet(s) PO UD No Start Date 06/22/2011 Inactive six day taper #21 Tessalon Perles 100 mg capsule RxNorm: 257611 2 Capsule(s) PO TID as needed No Start Date 05/16/2017 Inactive Bactroban 2 % topical ointment RxNorm: 487946 1 Application TOP BID No Start Date 09/26/2013 Inactive Phenergan 25 mg tablet RxNorm: 192790 1 Tablet(s) PO Q8 as needed nausea No Start Date 06/28/2015 Inactive flecainide 50 mg tablet RxNorm: 334603 1 Tablet(s) PO BID No Start Date 02/01/2016 Inactive Activella 0.5 mg-0.1 mg Tab RxNorm: 2681650 1 Tablet(s) PO daily No Start Date 03/21/2011 Inactive hydrocodone 10 mg-acetaminophen 325 mg tablet RxNorm: 539922 1 Tablet(s) PO Q6 as needed No Start Date 02/04/2016 Inactive lisinopril 20 mg Tab RxNorm: 709298 1 Tablet(s) PO daily No Start Date 06/20/2011 Inactive prednisone 10 mg tablets in a dose pack RxNorm: 697464 Tablet(s) PO UD 6-5-4-3-2- 1 No Start Date 05/30/2012 Inactive hydrocodone 7.5 mg-acetaminophen 325 mg tablet RxNorm: 532230 1 Tablet(s) PO Q6 PRN No Start Date 10/06/2013 Inactive hyoscyamine 0.125 mg sublingual tablet RxNorm: 5020297 1 Tablet(s) SL TID as needed No Start Date 05/16/2017 Inactive Cartia XT 180 mg 24 hr Cap RxNorm: 887660 1 Capsule(s) PO QHS No Start Date 06/29/2011 Inactive in addition to 240mg q am Zofran 4 mg tablet RxNorm: 782027 1 Tablet(s) PO Q6 PRN No Start Date 08/12/2012 Inactive omeprazole 20 mg Cap, Delayed Release RxNorm: 725118 1 Capsule(s) PO BID No Start Date 05/09/2011 Inactive venlafaxine 37.5 mg Tab RxNorm: 404167 1 Tablet(s) PO BID No Start Date 10/24/2011 Inactive Vesicare 10 mg tablet RxNorm: 029923 1 Tablet(s) PO daily No Start Date 09/28/2015 Inactive levothyroxine 25 mcg Tab RxNorm: 999551 1 Tablet(s) PO daily No Start Date 10/18/2011 Inactive Zithromax Z-Babak 250 mg tablet RxNorm: 119843 Tablet(s) PO UD No Start Date 04/01/2012 Inactive Januvia 100 mg tablet RxNorm: 789071 1 Tablet(s) PO daily No Start Date 05/22/2013 Inactive Lantus Solostar 100 unit/mL (3 mL) subcutaneous insulin pen RxNorm: 385413 Unit( s) SQ No Start Date 04/17/2017 Inactive 10 units q am and 50units at night fluconazole 150 mg tablet RxNorm: 362273 1 Tablet(s) PO every other day x 5 doses No Start Date 09/11/2012 Inactive Toprol XL 25 mg 24 hr Tab RxNorm: 241801 1 Tablet(s) PO daily No Start Date 11/16/2011 Inactive Medication Administered Medication Codes Instructions Start Date Status Kenalog 40 mg/mL suspension for injection RxNorm: 0127400 Milliliter 06/26/2015 No longer Active Kenalog 40 mg/mL suspension for injection RxNorm: 7888967 Milliliter 05/07/2013 No longer Active Kenalog 40 mg/mL Susp for Injection RxNorm: 8831933 1Milliliter 07/06/2012 No longer Active Pneumovax 23 25 mcg/0.5 mL Injection RxNorm: 654254 /2Milliliter 06/07/2012 No longer Active Kenalog 40 mg/mL Susp for Injection RxNorm: 7676161 1Milliliter 05/02/2012 No longer Active Phenergan 25 mg/mL Injection RxNorm: 608189 Milliliter 11/30/2011 No longer Active Immunizations Vaccine [...] STREP PNEUMONIAE-FLU ICD-10: Z23 ICD-9: V06.6 02/26/2016 Encounter for immunization ICD-10: Z23 ICD-9: V03.82 02/26/2016 Headache ICD-10: R51 ICD-9: 784.0 12/17/2015 [...] 03/25/2014 OPEN WND KNEE/LEG/ANKLE ICD-9: 891.0 11/2013 Asthma exacerbation ICD-9: 493.92 2013 COUGH ICD-9: 786.2 11/14/2013 Wrist pain, left ICD-9: 719.43 2013 LUMBAGO ICD-9: 724.2 08/12/2013 HYPOTHYROIDISM ICD-9: 244.9 08/12/2013 Encounter for long-term (current) use of [...] 276.51 08/09/2011 Yeast infection ICD-9: 112.9 08/01/2011 ACUTE MAXILLARY SINUSITIS ICD-9: 461.0 Fibromyalgia ICD-9: 729.1 06/20/2011 Reason For Visit Reason For Visit Effective [...] 26.2 pg 02/20/2018 Cbc With Differential Ord2 [place]% 5.7 % 02/20/2018 Cbc With Differential Ord2 [...] 1.61 K/ul 02/20/2018 Cbc With Differential Ord2 [place] ABS# 0.5 K/ul 02/20/2018 Cbc With Differential Ord2 Eos ABS# 0.1 K/ul 02/20/2018 Cbc With Differential Ord2 Baso ABS# 0.0 K/ul 02/20/2018 Comp Metabolic Xft369 NA 134 mEq/L 02/20/2018 Comp Metabolic Bab332 K 3.9 mEq/L 02/20/2018 Comp Metabolic Xic617 CL 90 mEq/L 02/20/2018 Comp Metabolic Kly455 CO2 32.0 mEq/L 02/20/2018 Comp Metabolic Hjf669 ANION GAP 16 02/20/2018 Comp Metabolic Qwb124 GLUCOSE 287 mg/dL 02/20/2018 Comp Metabolic Oel062 Creat 0.8 mg/dL 02/20/2018 Comp Metabolic Yys521 eGFR 72 ml/min/1.73m2 02/20/2018 Comp Metabolic Fqj095 BUN 13 mg/dL 02/20/2018 Comp Metabolic Ujt175 B/C Ratio 15.5 Ratio 02/20/2018 Comp Metabolic Wvn646 CALCIUM 9.0 mg/dL 02/20/2018 Comp Metabolic Auk586 ALK PHOS 120 U/L 02/20/2018 Comp Metabolic Zqj548 AST(SGOT) 21 U/L 02/20/2018 Comp Metabolic Rhf491 ALT(SGPT) 17 U/L 02/20/2018 Comp Metabolic Hlr329 BILI T 0.4 mg/dL 02/20/2018 Comp Metabolic Wuv260 ALBUMIN 3.8 g/dL 02/20/2018 Comp Metabolic Abq266 TPRO 6.9 g/dL 02/20/2018 Comp Metabolic Qig345 GLOB 3.1 g/dL 02/20/2018 Comp Metabolic Hew630 A/G Ratio 1.3 Ratio 02/20/2018 Comp Metabolic Ngo968 Osmo 279 mOsmo 02/20/2018 Vitamin D 25 Oh Ort6622 VITAMIN D, 25 HYDROXY 26.48 ng/mL Digoxin Ord9 DIGOXIN 0.7 NG/ML 02/20/2018 Culture Urine [id number] URINE CULTURE SEE NOTES 12/01/2017 Urine Culture Ucult Complete >100,000 col/ml aerobic growth sent to ref lab 11/29/2017 Comp Metabolic Tvj568 NA 135 mEq/L 08/21/2017 Comp Metabolic Yyy985 K 4.6 mEq/L 08/21/2017 Comp Metabolic Atp319 CL 92 mEq/L 08/21/2017 Comp Metabolic Pcb409 CO2 32.0 mEq/L 08/21/2017 Comp Metabolic Dye164 ANION GAP 16 08/21/2017 Comp Metabolic Boc009 GLUCOSE 298 mg/dL 08/21/2017 Comp Metabolic Gly579 Creat 1.1 mg/dL 08/21/2017 Comp Metabolic Lva284 eGFR 54 ml/min/1.73m2 08/21/2017 Comp Metabolic Ynu427 BUN 22 mg/dL 08/21/2017 Comp Metabolic Dru355 B/C Ratio 20.6 Ratio 08/21/2017 Comp Metabolic Fwu803 CALCIUM 9.3 mg/dL 08/21/2017 Comp Metabolic Dth505 ALK PHOS 145 U/L 08/21/2017 Comp Metabolic Fvr067 AST(SGOT) 31 U/L 08/21/2017 Comp Metabolic Oql674 ALT(SGPT) 19 U/L 08/21/2017 Comp Metabolic Dav288 BILI T 0.3 mg/dL 08/21/2017 Comp Metabolic Sem057 ALBUMIN 3.8 g/dL 08/21/2017 Comp Metabolic Wth660 TPRO 7.1 g/dL 08/21/2017 Comp Metabolic Saj456 GLOB 3.3 g/dL 08/21/2017 Comp Metabolic Izt856 A/G Ratio 1.2 Ratio 08/21/2017 Comp Metabolic Blz184 Osmo 285 mOsmo 08/21/2017 Cbc With Differential [...] 27.9 pg 08/18/2017 Cbc With Differential Ord2 [place]% 6.9 % 08/18/2017 Cbc With Differential Ord2 [...] 2.05 K/ul 08/18/2017 Cbc With Differential Ord2 [place] ABS# 0.7 K/ul 08/18/2017 Cbc With Differential Ord2 Eos ABS# 0.3 K/ul 08/18/2017 Cbc With Differential Ord2 Baso ABS# 0.0 K/ul 08/18/2017 %Hba1C Scm193 % HbA1c 05647-1 11.5 % 06/13/2017 %Hba1C Qiq141 Gluc Ave 283 mg/dL 06/13/2017 Cbc With [...] 20.0 % 03/27/2017 Cbc With Differential Ord2 [place]% 7.2 % 03/27/2017 Cbc With Differential Ord2 [...] 2.11 K/ul 03/27/2017 Cbc With Differential Ord2 [place] ABS# 0.8 K/ul 03/27/2017 Cbc With Differential Ord2 Eos ABS# 0.2 K/ul 03/27/2017 Cbc With Differential Ord2 Baso ABS# 0.0 K/ul 03/27/2017 Digoxin Ord9 DIGOXIN 0.5 NG/ML 03/27/2017 Comp Metabolic Wwr613 NA 136 mEq/L 03/27/2017 Comp Metabolic Cvj429 K 4.1 mEq/L 03/27/2017 Comp Metabolic Yik327 CL 90 mEq/L 03/27/2017 Comp Metabolic Cha936 CO2 34.0 mEq/L 03/27/2017 Comp Metabolic Ycm546 ANION GAP 16 03/27/2017 Comp Metabolic Ctx717 GLUCOSE 325 mg/dL 03/27/2017 Comp Metabolic Jxu238 Creat 1.0 mg/dL 03/27/2017 Comp Metabolic Mvb137 eGFR 62 ml/min/1.73m2 03/27/2017 Comp Metabolic Asy845 BUN 15 mg/dL 03/27/2017 Comp Metabolic Xly976 B/C Ratio 15.8 Ratio 03/27/2017 Comp Metabolic Ija548 CALCIUM 9.5 mg/dL 03/27/2017 Comp Metabolic Ojk193 ALK PHOS 159 U/L 03/27/2017 Comp Metabolic Dlv570 AST(SGOT) 57 U/L 03/27/2017 Comp Metabolic Azj433 ALT(SGPT) 32 U/L 03/27/2017 Comp Metabolic Yam628 BILI T 0.4 mg/dL 03/27/2017 Comp Metabolic Zru807 ALBUMIN 4.3 g/dL 03/27/2017 Comp Metabolic Xnu321 TPRO 7.3 g/dL 03/27/2017 Comp Metabolic Dhe037 GLOB 3.0 g/dL 03/27/2017 Comp Metabolic Rip827 A/G Ratio 1.4 Ratio 03/27/2017 Comp Metabolic Lvr042 Osmo 285 mOsmo 03/27/2017 Magnesium Ord90 Mag 2.4 mg/dL 02/27/2017 Comp Metabolic Qww525 NA 138 mEq/L 02/27/2017 Comp Metabolic Jsm419 K 4.2 mEq/L 02/27/2017 Comp Metabolic Vmc418 CL 91 mEq/L 02/27/2017 Comp Metabolic Moh300 CO2 36.0 mEq/L 02/27/2017 Comp Metabolic Sfb518 ANION GAP 15 02/27/2017 Comp Metabolic Jwq240 GLUCOSE 297 mg/dL 02/27/2017 Comp Metabolic Arx329 Creat 0.9 mg/dL 02/27/2017 Comp Metabolic Krh219 eGFR 71 ml/min/1.73m2 02/27/2017 Comp Metabolic Nzx921 BUN 12 mg/dL 02/27/2017 Comp Metabolic Pym706 B/C Ratio 14.1 Ratio 02/27/2017 Comp Metabolic Wzk157 CALCIUM 9.0 mg/dL 02/27/2017 Comp Metabolic Osb857 ALK PHOS 146 U/L 02/27/2017 Comp Metabolic Zox457 AST(SGOT) 28 U/L 02/27/2017 Comp Metabolic Khn533 ALT(SGPT) 12 U/L 02/27/2017 Comp Metabolic Hwg148 BILI T 0.3 mg/dL 02/27/2017 Comp Metabolic Qvm388 ALBUMIN 3.8 g/dL 02/27/2017 Comp Metabolic Bfo162 TPRO 6.6 g/dL 02/27/2017 Comp Metabolic Bep148 GLOB 2.8 g/dL 02/27/2017 Comp Metabolic Cia735 A/G Ratio 1.3 Ratio 02/27/2017 Comp Metabolic Egl093 Osmo 286 mOsmo 02/27/2017 Digoxin Ord9 DIGOXIN <0.2 NG/ML 02/14/2017 Comp Metabolic Jli892 NA 138 mEq/L 02/14/2017 Comp Metabolic Fmt466 K 3.5 mEq/L 02/14/2017 Comp Metabolic Pcz550 CL 95 mEq/L 02/14/2017 Comp Metabolic Nbi856 CO2 29.0 mEq/L 02/14/2017 Comp Metabolic Txt061 ANION GAP 18 02/14/2017 Comp Metabolic Psa256 GLUCOSE 254 mg/dL 02/14/2017 Comp Metabolic Crg910 Creat 1.0 mg/dL 02/14/2017 Comp Metabolic Wwx965 eGFR 62 ml/min/1.73m2 02/14/2017 Comp Metabolic Zxe242 BUN 14 mg/dL 02/14/2017 Comp Metabolic Ojj564 B/C Ratio 14.6 Ratio 02/14/2017 Comp Metabolic Qgv623 CALCIUM 8.6 mg/dL 02/14/2017 Comp Metabolic Bge074 ALK PHOS 155 U/L 02/14/2017 Comp Metabolic Nen044 AST(SGOT) 42 U/L 02/14/2017 Comp Metabolic Nrx797 ALT(SGPT) 28 U/L 02/14/2017 Comp Metabolic Aqd751 BILI T 0.3 mg/dL 02/14/2017 Comp Metabolic Xhy866 ALBUMIN 3.6 g/dL 02/14/2017 Comp Metabolic Has206 TPRO 6.2 g/dL 02/14/2017 Comp Metabolic Vqz521 GLOB 2.6 g/dL 02/14/2017 Comp Metabolic Xot532 A/G Ratio 1.4 Ratio 02/14/2017 Comp Metabolic Can207 Osmo 285 mOsmo 02/14/2017 Vitamin D 25 Oh Muq9325 VITAMIN D, 25 HYDROXY 8.99 ng/mL Tsh [...] 28.0 pg 01/16/2017 Cbc With Differential Ord2 [place]% 7.3 % 01/16/2017 Cbc With Differential Ord2 [...] 1.42 K/ul 01/16/2017 Cbc With Differential Ord2 [place] ABS# 0.6 K/ul 01/16/2017 Cbc With Differential Ord2 Eos ABS# 0.1 K/ul 01/16/2017 Cbc With Differential Ord2 Baso ABS# 0.0 K/ul 01/16/2017 Sed Rate Ord21 ESR 33 mm/hr 01/16/2017 C-Reactive Protein Qnt Crqnt CRP 3.3 mg/dl 01/16/2017 Free T4 Qux554 FREE T4 0.81 ng/dL 01/16/2017 %Hba1C Kmx796 % HbA1c 95123-7 12.4 % 01/16/2017 %Hba1C Xqp804 Gluc Ave 309 mg/dL 01/16/2017 Comp Metabolic Jrz608 NA 134 mEq/L 01/16/2017 Comp Metabolic Ecc028 K 4.0 mEq/L 01/16/2017 Comp Metabolic Wjk906 CL 89 mEq/L 01/16/2017 Comp Metabolic Dyb379 CO2 30.0 mEq/L 01/16/2017 Comp Metabolic Gmt112 ANION GAP 19 01/16/2017 Comp Metabolic Teu256 GLUCOSE 496 Result Verified By Repeat Analysis mg/dL 01/16/2017 Comp Metabolic Bpo239 Creat 0.8 mg/dL 01/16/2017 Comp Metabolic Brv034 eGFR 73 ml/min/1.73m2 01/16/2017 Comp Metabolic Our998 BUN 13 mg/dL 01/16/2017 Comp Metabolic Eym096 B/C Ratio 15.7 Ratio 01/16/2017 Comp Metabolic Vea933 CALCIUM 8.8 mg/dL 01/16/2017 Comp Metabolic Dfy783 ALK PHOS 171 U/L 01/16/2017 Comp Metabolic Xwh844 AST(SGOT) 54 U/L 01/16/2017 Comp Metabolic Gmo769 ALT(SGPT) 32 U/L 01/16/2017 Comp Metabolic Awu528 BILI T 0.3 mg/dL 01/16/2017 Comp Metabolic Axi995 ALBUMIN 3.9 g/dL 01/16/2017 Comp Metabolic Ewo644 TPRO 6.5 g/dL 01/16/2017 Comp Metabolic Rej195 GLOB 2.6 g/dL 01/16/2017 Comp Metabolic Ncu199 A/G Ratio 1.5 Ratio 01/16/2017 Comp Metabolic Rcn595 Osmo 290 mOsmo 01/16/2017 Comp Metabolic Twd761 NA 135 mEq/L 09/14/2016 Comp Metabolic Khh844 K 5.2 mEq/L 09/14/2016 Comp Metabolic Fsz752 CL 93 mEq/L 09/14/2016 Comp Metabolic Dmy323 CO2 26.0 mEq/L 09/14/2016 Comp Metabolic Qar226 ANION GAP 21 09/14/2016 Comp Metabolic Pqm905 GLUCOSE 326 mg/dL 09/14/2016 Comp Metabolic Hcr752 Creat 1.0 mg/dL 09/14/2016 Comp Metabolic Jvj273 eGFR 57 ml/min/1.73m2 09/14/2016 Comp Metabolic Hrj971 BUN 16 mg/dL 09/14/2016 Comp Metabolic Fir700 B/C Ratio 15.5 Ratio 09/14/2016 Comp Metabolic Bfi109 CALCIUM 9.2 mg/dL 09/14/2016 Comp Metabolic Ree259 ALK PHOS 160 U/L 09/14/2016 Comp Metabolic Jwz950 AST(SGOT) 49 U/L 09/14/2016 Comp Metabolic Utj062 ALT(SGPT) 32 U/L 09/14/2016 Comp Metabolic Zap236 BILI T 0.4 mg/dL 09/14/2016 Comp Metabolic Ler566 ALBUMIN 4.0 g/dL 09/14/2016 Comp Metabolic Cvp122 TPRO 7.3 g/dL 09/14/2016 Comp Metabolic Jwn777 GLOB 3.3 g/dL 09/14/2016 Comp Metabolic Ctf162 A/G Ratio 1.2 Ratio 09/14/2016 Comp Metabolic Tlf604 Osmo 284 mOsmo 09/14/2016 Cbc With Differential [...] 28.2 pg 09/14/2016 Cbc With Differential Ord2 [place]% 6.2 % 09/14/2016 Cbc With Differential Ord2 [...] 2.09 K/ul 09/14/2016 Cbc With Differential Ord2 [place] ABS# 0.7 K/ul 09/14/2016 Cbc With Differential Ord2 Eos ABS# 0.2 K/ul 09/14/2016 Cbc With Differential Ord2 Baso ABS# 0.3 K/ul 09/14/2016 %Hba1C Hlp442 % HbA1c 38145-3 10.7 % 09/14/2016 %Hba1C Ioc107 Gluc Ave 260 mg/dL 09/14/2016 Manual Differential Ord52 D-Neutr 62 % 09/14/2016 Manual Differential Ord52 D-[place] 1 % 09/14/2016 Manual Differential Ord52 D-Lymph 34 % 09/14/2016 Manual Differential Ord52 D-Eos 2 % 09/14/2016 Manual Differential Ord52 D-[place] 1 % 09/14/2016 Comp Metabolic Bwn498 NA 134 mEq/L 08/10/2016 Comp Metabolic Wif211 K 5.0 mEq/L 08/10/2016 Comp Metabolic Rxk947 CL 91 mEq/L 08/10/2016 Comp Metabolic Biw534 CO2 29.0 mEq/L 08/10/2016 Comp Metabolic Stj141 ANION GAP 19 08/10/2016 Comp Metabolic Vdp677 GLUCOSE 291 mg/dL 08/10/2016 Comp Metabolic Rvb231 Creat 0.9 mg/dL 08/10/2016 Comp Metabolic Kju785 eGFR 68 ml/min/1.73m2 08/10/2016 Comp Metabolic Lcu315 BUN 20 mg/dL 08/10/2016 Comp Metabolic Mbl869 B/C Ratio 22.7 Ratio 08/10/2016 Comp Metabolic Dxs390 CALCIUM 9.7 mg/dL 08/10/2016 Comp Metabolic Tzl106 ALK PHOS 144 U/L 08/10/2016 Comp Metabolic Woi976 AST(SGOT) 62 U/L 08/10/2016 Comp Metabolic Rfk117 ALT(SGPT) 37 U/L 08/10/2016 Comp Metabolic Qtb931 BILI T 0.3 mg/dL 08/10/2016 Comp Metabolic Ffw288 ALBUMIN 4.3 g/dL 08/10/2016 Comp Metabolic Cht353 TPRO 7.3 g/dL 08/10/2016 Comp Metabolic Ops789 GLOB 3.0 g/dL 08/10/2016 Comp Metabolic Ocg499 A/G Ratio 1.5 Ratio 08/10/2016 Comp Metabolic Aeg396 Osmo 282 mOsmo 08/10/2016 Free T4 Tih258 FREE T4 0.89 ng/dL 08/09/2016 Tsh Ord6 [...] 27.1 pg 08/09/2016 Cbc With Differential Ord2 [place]% 5.4 % 08/09/2016 Cbc With Differential Ord2 [...] 2.46 K/ul 08/09/2016 Cbc With Differential Ord2 [place] ABS# 0.8 K/ul 08/09/2016 Cbc With Differential [...] 27.3 pg 04/20/2016 Cbc With Differential Ord2 [place]% 6.3 % 04/20/2016 Cbc With Differential Ord2 [...] 2.63 K/ul 04/20/2016 Cbc With Differential Ord2 [place] ABS# 0.6 K/ul 04/20/2016 Cbc With Differential Ord2 [place] ABS# 0.2 K/ul 04/20/2016 Cbc With Differential Ord2 Baso ABS# 0.0 K/ul 04/20/2016 Comp Metabolic May881 NA 133 mEq/L 04/11/2016 Comp Metabolic Gze897 K 4.1 mEq/L 04/11/2016 Comp Metabolic Toa906 CL 92 mEq/L 04/11/2016 Comp Metabolic Tff777 CO2 30.0 mEq/L 04/11/2016 Comp Metabolic Ppm659 ANION GAP 15 04/11/2016 Comp Metabolic Czh742 GLUCOSE 414 mg/dL 04/11/2016 Comp Metabolic Xin197 Creat 0.9 mg/dL 04/11/2016 Comp Metabolic Mtr056 eGFR 65 ml/min/1.73m2 04/11/2016 Comp Metabolic Ala568 BUN 22 mg/dL 04/11/2016 Comp Metabolic Dwm667 B/C Ratio 23.9 Ratio 04/11/2016 Comp Metabolic Ifh189 CALCIUM 9.2 mg/dL 04/11/2016 Comp Metabolic Bvv614 ALK PHOS 145 U/L 04/11/2016 Comp Metabolic Vkn948 AST(SGOT) 22 U/L 04/11/2016 Comp Metabolic Jfg451 ALT(SGPT) 21 U/L 04/11/2016 Comp Metabolic Owv275 BILI T 0.3 mg/dL 04/11/2016 Comp Metabolic Osa458 ALBUMIN 3.9 g/dL 04/11/2016 Comp Metabolic Xiz331 TPRO 6.8 g/dL 04/11/2016 Comp Metabolic Khu557 GLOB 3.0 g/dL 04/11/2016 Comp Metabolic Fjn751 A/G Ratio 1.3 Ratio 04/11/2016 Comp Metabolic Bih236 Osmo 287 mOsmo 04/11/2016 Cbc With Differential [...] 27.6 pg 04/11/2016 Cbc With Differential Ord2 [place]% 6.9 % 04/11/2016 Cbc With Differential Ord2 [...] 2.09 K/ul 04/11/2016 Cbc With Differential Ord2 [place] ABS# 0.7 K/ul 04/11/2016 Cbc With Differential Ord2 Eos ABS# 0.2 K/ul 04/11/2016 Cbc With Differential Ord2 Baso ABS# 0.0 K/ul 04/11/2016 Comp Metabolic Ons071 NA 136 mEq/L 02/26/2016 Comp Metabolic Iss832 K 3.9 mEq/L 02/26/2016 Comp Metabolic Emp623 CL 95 mEq/L 02/26/2016 Comp Metabolic Kka087 CO2 29.0 mEq/L 02/26/2016 Comp Metabolic Mgw853 ANION GAP 16 02/26/2016 Comp Metabolic Ypn361 GLUCOSE 277 mg/dL 02/26/2016 Comp Metabolic Tir610 Creat 0.7 mg/dL 02/26/2016 Comp Metabolic Jir939 eGFR 88 ml/min/1.73m2 02/26/2016 Comp Metabolic Vxa193 BUN 11 mg/dL 02/26/2016 Comp Metabolic Dxq659 B/C Ratio 15.5 Ratio 02/26/2016 Comp Metabolic Jzm374 CALCIUM 8.8 mg/dL 02/26/2016 Comp Metabolic Xyw102 ALK PHOS 119 U/L 02/26/2016 Comp Metabolic Djf370 AST(SGOT) 25 U/L 02/26/2016 Comp Metabolic Jrp062 ALT(SGPT) 20 U/L 02/26/2016 Comp Metabolic Ijq667 BILI T 0.3 mg/dL 02/26/2016 Comp Metabolic Byv219 ALBUMIN 3.8 g/dL 02/26/2016 Comp Metabolic Ssv829 TPRO 6.6 g/dL 02/26/2016 Comp Metabolic Kzl883 GLOB 2.8 g/dL 02/26/2016 Comp Metabolic Jxd513 A/G Ratio 1.3 Ratio 02/26/2016 Comp Metabolic Fwo701 Osmo 281 mOsmo 02/26/2016 Cbc With Differential [...] 29.6 pg 02/26/2016 Cbc With Differential Ord2 [place]% 6.4 % 02/26/2016 Cbc With Differential Ord2 [...] 2.78 K/ul 02/26/2016 Cbc With Differential Ord2 [place] ABS# 0.8 K/ul 02/26/2016 Cbc With Differential Ord2 Eos ABS# 0.2 K/ul 02/26/2016 Cbc With Differential Ord2 Baso ABS# 0.1 K/ul 02/26/2016 %Hba1C Vmi213 % HbA1c 49195-6 9.6 % 02/26/2016 %Hba1C Tkw776 Gluc Ave 229 mg/dL 02/26/2016 Comp Metabolic Bly501 NA 138 mEq/L 11/10/2015 Comp Metabolic Pof575 K 4.5 mEq/L 11/10/2015 Comp Metabolic Pap712 CL 99 mEq/L 11/10/2015 Comp Metabolic Xqg421 CO2 34.0 mEq/L 11/10/2015 Comp Metabolic Fvd657 ANION GAP 10 11/10/2015 Comp Metabolic Lad053 GLUCOSE 167 mg/dL 11/10/2015 Comp Metabolic Noz663 Creat 0.8 mg/dL 11/10/2015 Comp Metabolic Bws714 eGFR 78 ml/min/1.73m2 11/10/2015 Comp Metabolic Jhb863 BUN 22 mg/dL 11/10/2015 Comp Metabolic Mad220 B/C Ratio 27.8 Ratio 11/10/2015 Comp Metabolic Ngs260 CALCIUM 8.5 mg/dL 11/10/2015 Comp Metabolic Jgz013 ALK PHOS 130 U/L 11/10/2015 Comp Metabolic Ibx745 AST(SGOT) 56 U/L 11/10/2015 Comp Metabolic Kfa730 ALT(SGPT) 51 U/L 11/10/2015 Comp Metabolic Jjt271 BILI T 0.5 mg/dL 11/10/2015 Comp Metabolic Cbs265 ALBUMIN 3.5 g/dL 11/10/2015 Comp Metabolic Fwn171 TPRO 5.8 g/dL 11/10/2015 Comp Metabolic Pgz478 GLOB 2.3 g/dL 11/10/2015 Comp Metabolic Kui702 A/G Ratio 1.5 Ratio 11/10/2015 Comp Metabolic Nwe438 Osmo 283 mOsmo 11/10/2015 Cbc With Differential [...] 28.0 pg 11/10/2015 Cbc With Differential Ord2 [place]% 7.7 % 11/10/2015 Cbc With Differential Ord2 [...] 1.92 K/ul 11/10/2015 Cbc With Differential Ord2 [place] ABS# 0.9 K/ul 11/10/2015 Cbc With Differential [...] 28.6 pg 08/11/2015 Cbc With Differential Ord2 [place]% 8.1 % 08/11/2015 Cbc With Differential Ord2 [...] 2.93 K/ul 08/11/2015 Cbc With Differential Ord2 [place] ABS# 0.9 K/ul 08/11/2015 Cbc With Differential Ord2 Eos ABS# 0.1 K/ul 08/11/2015 Cbc With Differential Ord2 Baso ABS# 0.0 K/ul 08/11/2015 Cbc With Differential Ord2 New Analyzer Notice Please note new ref ranges starting 06-03-2015 due to implemntation of new five part differential hematolgy analyzer. 08/11/2015 Comp Metabolic Rgz295 NA 142 mEq/L 08/11/2015 Comp Metabolic Zlm003 K 3.6 mEq/L 08/11/2015 Comp Metabolic Qgf227 CL 98 mEq/L 08/11/2015 Comp Metabolic Ygu584 CO2 33.0 mEq/L 08/11/2015 Comp Metabolic Adv651 ANION GAP 15 08/11/2015 Comp Metabolic Wtf945 GLUCOSE 100 mg/dL 08/11/2015 Comp Metabolic Gzz821 Creat 0.9 mg/dL 08/11/2015 Comp Metabolic Dnx243 eGFR 65 ml/min/1.73m2 08/11/2015 Comp Metabolic Pck159 BUN 15 mg/dL 08/11/2015 Comp Metabolic Yzf583 B/C Ratio 16.3 Ratio 08/11/2015 Comp Metabolic Qkl708 CALCIUM 8.8 mg/dL 08/11/2015 Comp Metabolic Frp697 ALK PHOS 171 U/L 08/11/2015 Comp Metabolic Sep121 AST(SGOT) 76 U/L 08/11/2015 Comp Metabolic Dtf216 ALT(SGPT) 64 U/L 08/11/2015 Comp Metabolic Gal172 BILI T 0.4 mg/dL 08/11/2015 Comp Metabolic Mix356 ALBUMIN 4.2 g/dL 08/11/2015 Comp Metabolic Obh029 TPRO 6.7 g/dL 08/11/2015 Comp Metabolic Tfz854 GLOB 2.6 g/dL 08/11/2015 Comp Metabolic Gjt085 A/G Ratio 1.6 Ratio 08/11/2015 Comp Metabolic Ntp333 Osmo 284 mOsmo 08/11/2015 %Hba1C Nlx632 % HbA1c 08969-6 6.7 % 08/11/2015 %Hba1C Cyp048 Gluc Ave 146 mg/dL 08/11/2015 Free T4 Kpw509 FREE T4 1.07 ng/dL 08/11/2015 Culture Urine [id number] URINE CULTURE SEE NOTES 07/23/2015 Culture Urine [id number] Continued Results 07/23/2015 Urine Culture Ucult Complete Growth of aerobe sent to ref lab 07/21/2015 Free T4 Rfh500 FREE T4 0.76 ng/dL 04/15/2015 Tsh Ord6 hTSH II 1.99 uIU/mL 04/15/2015 %Hba1C Yho987 % HbA1c 70671-5 6.7 % 04/14/2015 %Hba1C Qxf718 Gluc Ave 146 mg/dL 04/14/2015 Comp Metabolic Dde780 NA 140 mEq/L 04/14/2015 Comp Metabolic Hqa221 K 4.4 mEq/L 04/14/2015 Comp Metabolic Fwc875 CL 99 mEq/L 04/14/2015 Comp Metabolic Lrm466 CO2 29.0 mEq/L 04/14/2015 Comp Metabolic Axc194 ANION GAP 16 04/14/2015 Comp Metabolic Qpf481 GLUCOSE 100 mg/dL 04/14/2015 Comp Metabolic Zsk739 Creat 0.7 mg/dL 04/14/2015 Comp Metabolic Kyw640 eGFR 91 ml/min/1.73m2 04/14/2015 Comp Metabolic Lvf932 BUN 13 mg/dL 04/14/2015 Comp Metabolic Iob114 B/C Ratio 18.8 Ratio 04/14/2015 Comp Metabolic Mti683 CALCIUM 9.1 mg/dL 04/14/2015 Comp Metabolic Ufr920 ALK PHOS 138 U/L 04/14/2015 Comp Metabolic Pxg244 AST(SGOT) 22 U/L 04/14/2015 Comp Metabolic Kgh055 ALT(SGPT) 22 U/L 04/14/2015 Comp Metabolic Crf903 BILI T 0.3 mg/dL 04/14/2015 Comp Metabolic Ikb839 ALBUMIN 4.0 g/dL 04/14/2015 Comp Metabolic Vyn661 TPRO 6.5 g/dL 04/14/2015 Comp Metabolic Lng879 GLOB 2.5 g/dL 04/14/2015 Comp Metabolic Sug411 A/G Ratio 1.6 Ratio 04/14/2015 Comp Metabolic Muh704 Osmo 280 mOsmo 04/14/2015 Cbc With Differential [...] Ord2 RDW 16.5 % 04/14/2015 CHEM 14 1873676 AST 15 U/L 09/11/2013 CHEM 14 7657035 ALT 25 IU/L 09/11/2013 CHEM 14 8429009 BUN 29 MG/DL 09/11/2013 CHEM 14 0937686 ALBUMIN 3.8 GM/DL 09/11/2013 CHEM 14 2987679 CHLORIDE 99 MMOL/L 09/11/2013 CHEM 14 9908238 BILI TOT 0.2 MG/DL 09/11/2013 CHEM 14 4242805 ALK PHOS 118 U/L 09/11/2013 CHEM 14 6993088 SODIUM 136 MMOL/L 09/11/2013 CHEM 14 3958806 CREATININE 1.26 MG/DL 09/11/2013 CHEM 14 4246555 CALCIUM 9.0 MG/DL 09/11/2013 CHEM 14 3666638 POTASSIUM 5.0 MMOL/L 09/11/2013 CHEM 14 0411125 PROT TOT 6.2 GM/DL 09/11/2013 CHEM 14 1984436 GLUCOSE 254 MG/DL 09/11/2013 CHEM 14 2686252 BICARB 29 MMOL/L 09/11/2013 CHEM 14 4777880 ANION GAP 8 MEQ/L 09/11/2013 GFR CALC 1338968 GFR AA 52.0L ML/MIN 09/11/2013 GFR CALC 7723088 GFR NON-AA 43.0L ML/MIN 09/11/2013 FREE T4 [id number] FREE T4 1.35 NG/DL 08/02/2013 CBC 1200712 WBC 7.5 10e9/L 08/01/2013 CBC 9138733 RBC 3.88 10e12/L 08/01/2013 CBC 1506130 HGB 12.1 g/dL 08/01/2013 CBC 3162863 HCT DET 37.6 % 08/01/2013 CBC 9160570 MCV 96.9 fL 08/01/2013 CBC 8577991 MCH 31.2 pg 08/01/2013 CBC 4623530 MCHC 32.2 g/dL 08/01/2013 CBC 6671596 PLT 289 10e9/L 08/01/2013 CBC 5515269 MPV 9.6 fL 08/01/2013 CBC 1411068 [place] % 56.0 % 08/01/2013 CBC 7658936 LY % 31.6 % 08/01/2013 CBC 6672404 MON % 10.0 % 08/01/2013 CBC 3683551 EOS % 1.7 % 08/01/2013 CBC 1667515 BASO % 0.7 % 08/01/2013 CBC 2647097 RDW 15.5 % 08/01/2013 CBC 2657509 ABS JOSEFINA 4.20 10e9/L 08/01/2013 CBC 5684359 ABS LYMPH 2.37 10e9/L 08/01/2013 CBC 9675610 ABS MONO 0.75 10e9/L 08/01/2013 CBC 4078234 ABS EOS 0.13 10e9/L 08/01/2013 CBC 8316803 ABS BASO 0.05 10e9/L 08/01/2013 CBC 2677406 RDW-SD 53.5 fL 08/01/2013 TSH 8673223 TSH 6.497 uIU/ML 08/01/2013 CHEM 14 2455430 AST 53 U/L 08/01/2013 CHEM 14 0971225 ALT 36 IU/L 08/01/2013 CHEM 14 9429753 BUN 16 MG/DL 08/01/2013 CHEM 14 5446686 ALBUMIN 4.2 GM/DL 08/01/2013 CHEM 14 3345431 CHLORIDE 103 MMOL/L 08/01/2013 CHEM 14 3824688 BILI TOT 0.4 MG/DL 08/01/2013 CHEM 14 6113086 ALK PHOS 113 U/L 08/01/2013 CHEM 14 1593231 SODIUM 139 MMOL/L 08/01/2013 CHEM 14 8825833 CREATININE 0.83 MG/DL 08/01/2013 CHEM 14 2879363 CALCIUM 9.5 MG/DL 08/01/2013 CHEM 14 2953633 POTASSIUM 4.2 MMOL/L 08/01/2013 CHEM 14 4958745 PROT TOT 6.4 GM/DL 08/01/2013 CHEM 14 0600866 GLUCOSE 135 MG/DL 08/01/2013 CHEM 14 0617384 BICARB 26 MMOL/L 08/01/2013 CHEM 14 6009198 ANION GAP 10 MEQ/L 08/01/2013 A1C HPLC 9337295 A1C HPLC 83590-1 8.1 % 08/01/2013 GFR CALC 2582059 GFR AA >60 ML/MIN 08/01/2013 GFR CALC 7707705 GFR NON-AA >60 ML/MIN 08/01/2013 CBC 4727530 WBC 10.4 10e9/L 03/21/2013 CBC 8454732 RBC 4.27 10e12/L 03/21/2013 CBC 9412820 HGB 13.1 g/dL 03/21/2013 CBC 5003145 HCT DET 41.2 % 03/21/2013 CBC 2384334 MCV 96.5 fL 03/21/2013 CBC 1178432 MCH 30.7 pg 03/21/2013 CBC 7678943 MCHC 31.8 g/dL 03/21/2013 CBC 2908993 PLT 398 10e9/L 03/21/2013 CBC 4888490 MPV 10.9 fL 03/21/2013 CBC 3033727 JOSE[place] % 65.4 % 03/21/2013 CBC 7578842 LY % 25.6 % 03/21/2013 CBC 4053215 MON % 6.7 % 03/21/2013 CBC 2707250 EOS % 1.9 % 03/21/2013 CBC 9598103 BASO % 0.4 % 03/21/2013 CBC 1555027 RDW 14.2 % 03/21/2013 CBC 7711022 ABS JOSEFINA 6.80 10e9/L 03/21/2013 CBC 9968882 ABS LYMPH 2.66 10e9/L 03/21/2013 CBC 9193579 ABS MONO 0.70 10e9/L 03/21/2013 CBC 5018137 ABS EOS 0.20 10e9/L 03/21/2013 CBC 1355529 ABS BASO 0.04 10e9/L 03/21/2013 CBC 2125553 RDW-SD 48.7 fL 03/21/2013 GFR CALC 2927912 GFR AA 57.0L ML/MIN 03/21/2013 GFR CALC 7539663 GFR NON-AA 47.0L ML/MIN 03/21/2013 CHEM 14 3396693 AST 22 U/L 03/21/2013 CHEM 14 7077044 ALT 22 IU/L 03/21/2013 CHEM 14 6621286 BUN 29 MG/DL 03/21/2013 CHEM 14 9310805 ALBUMIN 4.1 GM/DL 03/21/2013 CHEM 14 2816310 CHLORIDE 99 MMOL/L 03/21/2013 CHEM 14 7883622 BILI TOT 0.3 MG/DL 03/21/2013 CHEM 14 7202400 ALK PHOS 123 U/L 03/21/2013 CHEM 14 2447883 SODIUM 137 MMOL/L 03/21/2013 CHEM 14 3625495 CREATININE 1.16 MG/DL 03/21/2013 CHEM 14 4280224 CALCIUM 9.1 MG/DL 03/21/2013 CHEM 14 9577068 POTASSIUM 4.1 MMOL/L 03/21/2013 CHEM 14 6190612 PROT TOT 6.7 GM/DL 03/21/2013 CHEM 14 2273584 GLUCOSE 209 MG/DL 03/21/2013 CHEM 14 5980225 BICARB 26 MMOL/L 03/21/2013 CHEM 14 8084383 ANION GAP 12 MEQ/L 03/21/2013 A1C HPLC 0294375 A1C HPLC 46822-8 6.6 % 03/21/2013 GFR CALC 3702540 GFR AA >60 ML/MIN 01/17/2013 GFR CALC 2575680 GFR NON-AA 51.0L ML/MIN 01/17/2013 CHEM 14 6517181 AST 18 U/L 01/17/2013 CHEM 14 9725035 ALT 32 IU/L 01/17/2013 CHEM 14 8669514 BUN 22 MG/DL 01/17/2013 CHEM 14 8727735 ALBUMIN 4.1 GM/DL 01/17/2013 CHEM 14 2869743 CHLORIDE 99 MMOL/L 01/17/2013 CHEM 14 9626289 BILI TOT 0.3 MG/DL 01/17/2013 CHEM 14 2538909 ALK PHOS 110 U/L 01/17/2013 CHEM 14 8626759 SODIUM 138 MMOL/L 01/17/2013 CHEM 14 5403092 CREATININE 1.09 MG/DL 01/17/2013 CHEM 14 2409340 CALCIUM 8.8 MG/DL 01/17/2013 CHEM 14 7070097 POTASSIUM 3.5 MMOL/L 01/17/2013 CHEM 14 7780041 PROT TOT 6.1 GM/DL 01/17/2013 CHEM 14 2851553 GLUCOSE 163 MG/DL 01/17/2013 CHEM 14 1152077 BICARB 29 MMOL/L 01/17/2013 CHEM 14 9835910 ANION GAP 10 MEQ/L 01/17/2013 CBC 6205832 WBC 8.0 10e9/L 01/17/2013 CBC 0323490 RBC 3.85 10e12/L 01/17/2013 CBC 0381906 HGB 12.6 g/dL 01/17/2013 CBC 0790116 HCT DET 38.0 % 01/17/2013 CBC 4435640 MCV 98.7 fL 01/17/2013 CBC 0185584 MCH 32.7 pg 01/17/2013 CBC 5962971 MCHC 33.2 g/dL 01/17/2013 CBC 8636777 PLT 325 10e9/L 01/17/2013 CBC 8183385 MPV 10.4 fL 01/17/2013 CBC 5430785 JOSEFINA % 64.6 % 01/17/2013 CBC 8867561 LY % 27.0 % 01/17/2013 CBC 5828682 MON % 6.8 % 01/17/2013 CBC 0471897 EOS % 1.4 % 01/17/2013 CBC 6126312 BASO % 0.2 % 01/17/2013 CBC 9421183 RDW 15.5 % 01/17/2013 CBC 8991228 ABS JOSEFINA 5.17 10e9/L 01/17/2013 CBC 4247236 ABS LYMPH 2.16 10e9/L 01/17/2013 CBC 7448485 ABS MONO 0.54 10e9/L 01/17/2013 CBC 1025542 ABS EOS 0.11 10e9/L 01/17/2013 CBC 8889800 ABS BASO 0.02 10e9/L 01/17/2013 CBC 0692035 RDW-SD 54.3 fL 01/17/2013 TSH 4476936 TSH 3.683 uIU/ML 12/31/2012 FREE T4 6692437 FREE T4 1.34 NG/DL 12/31/2012 A1C HPLC 3517807 A1C HPLC 78382-3 6.6 % 12/21/2012 CHEM 14 7377965 AST 16 U/L 12/20/2012 CHEM 14 3415476 ALT 36 IU/L 12/20/2012 CHEM 14 1308805 BUN 26 MG/DL 12/20/2012 CHEM 14 7172586 ALBUMIN 4.2 GM/DL 12/20/2012 CHEM 14 1404319 CHLORIDE 103 MMOL/L 12/20/2012 CHEM 14 9595361 BILI TOT 0.4 MG/DL 12/20/2012 CHEM 14 6587444 ALK PHOS 107 U/L 12/20/2012 CHEM 14 7369947 SODIUM 141 MMOL/L 12/20/2012 CHEM 14 6635078 CREATININE 0.73 MG/DL 12/20/2012 CHEM 14 5730134 CALCIUM 9.2 MG/DL 12/20/2012 CHEM 14 7719867 POTASSIUM 4.3 MMOL/L 12/20/2012 CHEM 14 2975871 PROT TOT 6.2 GM/DL 12/20/2012 CHEM 14 8909798 GLUCOSE 135 MG/DL 12/20/2012 CHEM 14 6710690 BICARB 32 MMOL/L 12/20/2012 CHEM 14 2072885 ANION GAP 6 MEQ/L 12/20/2012 GFR CALC 5948078 GFR AA >60 ML/MIN 12/20/2012 GFR CALC 8762592 GFR NON-AA >60 ML/MIN 12/20/2012 CBC 0725403 WBC 8.4 10e9/L 12/20/2012 CBC 0581343 RBC 4.30 10e12/L 12/20/2012 CBC 0042272 HGB 13.9 g/dL 12/20/2012 CBC 9384085 HCT DET 41.8 % 12/20/2012 CBC 0506491 MCV 97.2 fL 12/20/2012 CBC 3392161 MCH 32.3 pg 12/20/2012 CBC 6255705 MCHC 33.3 g/dL 12/20/2012 CBC 2346264 PLT 358 10e9/L 12/20/2012 CBC 9669902 MPV 10.2 fL 12/20/2012 CBC 7349624 JOSEFINA % 63.3 % 12/20/2012 CBC 7955552 LY % 28.9 % 12/20/2012 CBC 9753633 MON % 6.3 % 12/20/2012 CBC 0539384 EOS % 1.1 % 12/20/2012 CBC 5973422 BASO % 0.4 % 12/20/2012 CBC 2358338 RDW 15.3 % 12/20/2012 CBC 1505870 ABS JOSEFINA 5.32 10e9/L 12/20/2012 CBC 5580764 ABS LYMPH 2.43 10e9/L 12/20/2012 CBC 0489156 ABS MONO 0.53 10e9/L 12/20/2012 CBC 0628352 ABS EOS 0.09 10e9/L 12/20/2012 CBC 6690914 ABS BASO 0.03 10e9/L 12/20/2012 CBC 8206781 RDW-SD 51.9 fL 12/20/2012 GFR CALC 5477368 GFR AA >60 ML/MIN 02/01/2012 GFR CALC 3307039 GFR NON-AA >60 ML/MIN 02/01/2012 CBC 2946756 WBC 10.8 10e9/L 02/01/2012 CBC 6453854 RBC 3.86 10e12/L 02/01/2012 CBC 4634395 HGB 11.8 g/dL 02/01/2012 CBC 4765770 HCT DET 36.3 % 02/01/2012 CBC 2119350 MCV 94.0 fL 02/01/2012 CBC 8967778 MCH 30.6 pg 02/01/2012 CBC 5580445 MCHC 32.5 g/dL 02/01/2012 CBC 8082755 PLT 321 10e9/L 02/01/2012 CBC 1039421 MPV 10.3 fL 02/01/2012 CBC 8252151 JOSEFINA % 75.9 % 02/01/2012 CBC 8814579 LY % 16.1 % 02/01/2012 CBC 5484897 MON % 6.8 % 02/01/2012 CBC 5117281 EOS % 1.0 % 02/01/2012 CBC 5813684 BASO % 0.2 % 02/01/2012 CBC 6067592 RDW 14.2 % 02/01/2012 CBC 7920295 ABS JOSEFINA 8.20 10e9/L 02/01/2012 CBC 1579401 ABS LYMPH 1.74 10e9/L 02/01/2012 CBC 6196965 ABS MONO 0.73 10e9/L 02/01/2012 CBC 0029138 ABS EOS 0.11 10e9/L 02/01/2012 CBC 5457470 ABS BASO 0.02 10e9/L 02/01/2012 CBC 9541245 RDW-SD 47.2 fL 02/01/2012 BRAIN PEP 4775389 BRAIN PEP FOOTNOTE pg/mL 02/01/2012 CHEM 14 3439181 AST 26 U/L 02/01/2012 CHEM 14 3180582 ALT 36 IU/L 02/01/2012 CHEM 14 4291295 BUN 29 MG/DL 02/01/2012 CHEM 14 4580685 ALBUMIN 3.7 GM/DL 02/01/2012 CHEM 14 1644793 CHLORIDE 105 MMOL/L 02/01/2012 CHEM 14 1212821 BILI TOT 0.2 MG/DL 02/01/2012 CHEM 14 4135808 ALK PHOS 89 U/L 02/01/2012 CHEM 14 2510641 SODIUM 141 MMOL/L 02/01/2012 CHEM 14 8798469 CREATININE 0.76 MG/DL 02/01/2012 CHEM 14 2798629 CALCIUM 9.0 MG/DL 02/01/2012 CHEM 14 1946494 POTASSIUM 4.8 MMOL/L 02/01/2012 CHEM 14 1805530 PROT TOT 5.5 GM/DL 02/01/2012 CHEM 14 0507571 GLUCOSE 83 MG/DL 02/01/2012 CHEM 14 2669851 BICARB 31 MMOL/L 02/01/2012 CHEM 14 2423647 ANION GAP 5 MEQ/L 02/01/2012 GFR CALC 4766567 GFR AA >60 ML/MIN 11/30/2011 GFR CALC 6930587 GFR NON-AA >60 ML/MIN 11/30/2011 CHEM 14 7532209 AST 14 U/L 11/30/2011 CHEM 14 0071142 ALT 17 IU/L 11/30/2011 CHEM 14 7414116 BUN 12 MG/DL 11/30/2011 CHEM 14 8779108 ALBUMIN 4.3 GM/DL 11/30/2011 CHEM 14 6464382 CHLORIDE 104 MMOL/L 11/30/2011 CHEM 14 2298335 BILI TOT 0.3 MG/DL 11/30/2011 CHEM 14 3602728 ALK PHOS 83 U/L 11/30/2011 CHEM 14 0871498 SODIUM 143 MMOL/L 11/30/2011 CHEM 14 8366981 CREATININE 0.71 MG/DL 11/30/2011 CHEM 14 1616348 CALCIUM 9.7 MG/DL 11/30/2011 CHEM 14 2923724 POTASSIUM 4.4 MMOL/L 11/30/2011 CHEM 14 9503925 PROT TOT 6.3 GM/DL 11/30/2011 CHEM 14 1205719 GLUCOSE 107 MG/DL 11/30/2011 CHEM 14 2759796 BICARB 27 MMOL/L 11/30/2011 CHEM 14 8103942 ANION GAP 12 MEQ/L 11/30/2011 CBC 9638413 WBC 8.7 10e9/L 11/30/2011 CBC 4542315 RBC 4.40 10e12/L 11/30/2011 CBC 8276914 HGB 13.6 g/dL 11/30/2011 CBC 1412666 HCT DET 41.0 % 11/30/2011 CBC 7353479 MCV 93.2 fL 11/30/2011 CBC 4464496 MCH 30.9 pg 11/30/2011 CBC 5234689 MCHC 33.2 g/dL 11/30/2011 CBC 9586873 PLT 328 10e9/L 11/30/2011 CBC 5466019 MPV 10.7 fL 11/30/2011 CBC 5771103 JOSEFINA % 68.4 % 11/30/2011 CBC 1726920 LY % 22.4 % 11/30/2011 CBC 5673097 MON % 7.9 % 11/30/2011 CBC 5206181 EOS % 1.1 % 11/30/2011 CBC 1228974 BASO % 0.2 % 11/30/2011 CBC 5196417 RDW 13.5 % 11/30/2011 CBC 8902544 ABS JOSEFINA 5.95 10e9/L 11/30/2011 CBC 4854391 ABS LYMPH 1.95 10e9/L 11/30/2011 CBC 7312350 ABS MONO 0.69 10e9/L 11/30/2011 CBC 4914578 ABS EOS 0.10 10e9/L 11/30/2011 CBC 1200280 ABS BASO 0.02 10e9/L 11/30/2011 CBC 0594875 RDW-SD 45.0 fL 11/30/2011 URINALYSIS NONAUTO W/O SCOPE 75054 Specific [place] 1.030 DateTime(Free Text in Aprima) URINALYSIS NONAUTO W/O SCOPE 68487 PH 5 DateTime(Free Text in Aprima) URINALYSIS NONAUTO W/O SCOPE 66859 GLUCOSE neg DateTime( Free Text in Aprima) URINALYSIS NONAUTO W/O SCOPE 56769 Protein neg DateTime( Free Text in Aprima) URINALYSIS NONAUTO W/O SCOPE 58989 Blood neg DateTime(Free Text in Aprima) URINALYSIS NONAUTO W/O SCOPE 59780 Bilirubin neg DateTime(Free Text in Aprima) URINALYSIS NONAUTO W/O SCOPE 77001 Ketones neg DateTime( Free Text in Aprima) URINALYSIS NONAUTO W/O SCOPE 94664 Urobilinogen neg DateTime(Free Text in Aprima) URINALYSIS NONAUTO W/O SCOPE 54742 Nitrite neg DateTime( Free Text in Aprima) URINALYSIS NONAUTO W/O SCOPE 29754 Leukocytes neg DateTime(Free Text in Aprima) UA 18638 Specific [place] 1.010 DateTime(Free Text in Aprima ) UA 41422 PH 5 DateTime(Free Text in Aprima) UA 38339 GLUCOSE N DateTime(Free Text in Aprima) UA 34535 Protein N DateTime(Free Text in Aprima) UA 67792 Blood TRACE DateTime(Free Text in Aprima) UA 40405 Bilirubin N DateTime(Free Text in Aprima) UA 68741 Ketones N DateTime(Free Text in Aprima) UA 86937 Urobilinogen N DateTime(Free Text in Aprima) UA 23713 Nitrite N DateTime(Free Text in Aprima) UA 09434 Leukocytes N DateTime(Free Text in Aprima) URINALYSIS NONAUTO W/O SCOPE 37355 Specific [place] 1.010 DateTime(Free Text in Aprima) URINALYSIS NONAUTO W/O SCOPE 04651 PH 7.5 DateTime(Free Text in Aprima) URINALYSIS NONAUTO W/O SCOPE 33049 GLUCOSE DateTime( Free Text in Aprima) URINALYSIS NONAUTO W/O SCOPE 94161 Protein trace DateTime(Free Text in Aprima) URINALYSIS NONAUTO W/O SCOPE 85055 Blood DateTime(Free Text in Aprima) URINALYSIS NONAUTO W/O SCOPE 65387 Bilirubin DateTime( Free Text in Aprima) URINALYSIS NONAUTO W/O SCOPE 29560 Ketones DateTime( Free Text in Aprima) URINALYSIS NONAUTO W/O SCOPE 24103 Urobilinogen DateTime (Free Text in Aprima) URINALYSIS NONAUTO W/O SCOPE 53279 Nitrite DateTime( Free Text in Aprima) URINALYSIS NONAUTO W/O SCOPE 56156 Leukocytes DateTime( Free Text in Aprima) URINALYSIS NONAUTO W/O SCOPE 80120 Specific [place] 1.010 DateTime(Free Text in Aprima) URINALYSIS NONAUTO W/O SCOPE 22223 PH 6 DateTime(Free Text in Aprima) URINALYSIS NONAUTO W/O SCOPE 11294 GLUCOSE DateTime( Free Text in Aprima) URINALYSIS NONAUTO W/O SCOPE 93730 Protein DateTime( Free Text in Aprima) URINALYSIS NONAUTO W/O SCOPE 34183 Blood DateTime(Free Text in Aprima) URINALYSIS NONAUTO W/O SCOPE 11877 Bilirubin DateTime( Free Text in Aprima) URINALYSIS NONAUTO W/O SCOPE 09504 Ketones DateTime( Free Text in Aprima) URINALYSIS NONAUTO W/O SCOPE 31654 Urobilinogen DateTime (Free Text in Aprima) URINALYSIS NONAUTO W/O SCOPE 93223 Nitrite DateTime( Free Text in Aprima) URINALYSIS NONAUTO W/O SCOPE 32603 Leukocytes DateTime( Free Text in Aprima) UA 42931 Specific [place] 1.020 DateTime(Free Text in Aprima ) UA 15376 PH 6 DateTime(Free Text in ) UA 54865 GLUCOSE neg DateTime(Free Text in ) UA 60519 Protein neg DateTime(Free Text in Apr) UA 83196 Blood neg DateTime(Free Text in Aprima) UA 82788 Bilirubin neg DateTime(Free Text in Aprima) UA 20635 Ketones neg DateTime(Free Text in Apr) UA 48922 Urobilinogen neg DateTime(Free Text in Apr) UA 05165 Nitrite neg DateTime(Free Text in Apr) UA 76966 Leukocytes neg DateTime(Free Text in Apr) BMI 83042-4 39.7 DateTime(Free Text in ) Blood Pressure [...] distress 02/20/2018 None Full Exam - General 1995 Constitutional general appearance Overall: well nourished 02/20/2018 None Full Exam - General 1995 Eyes conjunctiva /eyelids Overall: conjunctiva clear 02/20/2018 [...] rate 11/27/2017 None Full Exam - General 1995 Lymphatic [...] occlusion 04/15/2014 None Full Exam - General 1995 Ears/Nose/Throat otoscopic exam Tympanic membrane: a normal exam 04/15/2014 None Full Exam - General 1995 Ears/Nose/Throat otoscopic exam Tympanic membrane: not visualized 04/15/2014 None Full Exam - General 1995 [...] accomodation 03/25/2014 None Full Exam - General 1995 Ears/Nose/Throat external ear Overall: normal appearance 03/25/2014 None Full Exam - General 1994 Ears/Nose/Throat external ear Overall: no masses 03/25/2014 None Full Exam - General 1995 Ears/Nose/Throat external ear Overall: normal mastoids 03/25/2014 None Full Exam - General 1995 Ears/Nose/Throat otoscopic exam External auditory canal: a normal exam 03/25/2014 None Full Exam - General 1995 Ears/Nose/Throat otoscopic exam External auditory canal: partial cerumen occlusion 03/25/2014 None Full Exam - General 1995 Ears/Nose/Throat otoscopic exam Tympanic membrane: a normal exam 03/25/2014 None Full Exam - General 1995 Ears/Nose/Throat [...] accomodation 01/27/2014 None Full Exam - General 1995 Ears/Nose/Throat external ear Overall: normal appearance 01/27/2014 [...] clear 06/27/2013 None Full Exam - General 1995 Ears/Nose/Throat lips/teeth/gingiva Overall: benign lips 06/27/2013 None Full Exam - General 1995 Ears/Nose/Throat lips/teeth/gingiva Overall: normal dentition 06/27/2013 None Full Exam - General 1995 Ears/Nose/Throat lips/teeth/gingiva Overall: benign gingiva 06/27/2013 None [...] mastoids 06/10/2013 None Full Exam - General 1995 Ears/Nose/Throat otoscopic exam External auditory canal: a normal exam 06/10/2013 None Full Exam - General 1995 Ears/Nose/Throat otoscopic exam External auditory canal: partial cerumen occlusion 06/10/2013 None Full Exam - General 1995 [...] distress 05/07/2013 None Full Exam - General 1995 Constitutional general appearance Overall: well nourished 05/07/2013 None Full Exam - General 1994 Eyes pupils and irises Overall: pupils equal, round, reactive to light and accomodation 05/07/2013 None Full Exam - General 1995 Ears/Nose/Throat external ear Overall: normal appearance 05/07/2013 [...] sounds 04/16/2013 tachycardia Full Exam - General 1995 Cardiovascular auscultation of heart Overall: no murmurs 04/16/2013 None Full Exam - General 1995 Lymphatic neck nodes Overall: shotty lymphadenopathy 04/16/2013 None Full Exam - General 1995 Neurologic mental status Overall: alert 04/16/2013 None Full Exam - General 1995 Neurologic mental status Overall: oriented 04/16/2013 None [...] - General 1995 Psychiatric orientation/consciousness Oriented to time: yes 02/04/2013 [...] bilaterally 12/20/2012 None Full Exam - General 1995 Respiratory respiratory effort/rhythm Overall: no retractions 12/20/2012 [...] - General 1995 Psychiatric orientation/consciousness Oriented to time: yes 10/29/2012 None Full Exam - General 1995 Psychiatric orientation/consciousness Level of consciousness: alert 10/29/2012 None Full Exam - General 1995 Musculoskeletal spine, ribs and pelvis Sacroiliac joints: tender left sacroiliac joint 09/21/2012 None Full Exam - General 1995 Musculoskeletal head and neck Overall: head atraumatic 09/21/2012 None Full Exam - General 1995 Musculoskeletal head and neck Overall: cervical spine benign 09/21/2012 None Full Exam - General 1995 Psychiatric mood and affect Overall: normal mood and affect 09/21/2012 None Full Exam - General 1995 Psychiatric orientation/consciousness Overall: oriented to person, place and time 09/21/2012 None Full Exam - General 1995 Constitutional general appearance Overall: well developed 09/21/2012 None Full Exam - General 1994 Constitutional general appearance Overall: in no acute distress 09/21/2012 None Full Exam - General 1995 Constitutional general appearance Overall: well nourished 09/21/2012 None Full Exam - General 1995 Constitutional general appearance Development: well developed 09/06/2012 None Full Exam - General 1995 [...] rate 08/23/2012 None Full Exam - General 1995 Cardiovascular extremities Edema present: pitting 08/23/2012 None [...] rate 08/23/2012 None Full Exam - General 1995 [...] anxious 05/28/2012 None Full Exam - General 1995 Genitourinary labia and vagina Labia: cyst 05/28/2012 [...] tenderness 04/10/2012 None Full Exam - General 1995 Abdomen [...] bilaterally 02/01/2012 None Full Exam - General 1995 Respiratory respiratory effort/rhythm Overall: no retractions 02/01/2012 None Full Exam - General 1995 Respiratory respiratory effort/rhythm Overall: normal rate 02/01/2012 None Full Exam - General 1995 Cardiovascular extremities Edema present: pitting 02/01/2012 None Full Exam - General 1994 Cardiovascular extremities Edema present: severity 1+ - 4 +: _ 02/01/2012 None Full Exam - General 1995 Cardiovascular extremities Edema present: bilateral 02/01/2012 None [...] bilaterally 11/03/2011 None Full Exam - General 1995 Respiratory respiratory effort/rhythm Overall: no retractions 11/03/2011 [...] knees 11/03/2011 None Full Exam - General 1995 Cardiovascular [...] tender bilaterally. Full Exam - General 1995 Neurologic deep [...] rate 09/01/2011 None Full Exam - General 1995 Cardiovascular [...] yes 09/01/2011 None Full Exam - General 1995 Psychiatric orientation/consciousness Level of consciousness: alert 09/01/2011 [...] 08/15/2011 None Full Exam - General 1995 Eyes conjunctiva /eyelids Overall: eyelids normal 08/15/2011 None Full Exam - General 1995 Eyes conjunctiva /eyelids Overall: cornea clear 08/15/2011 [...] affect 08/01/2011 None Full Exam - General 1995 Musculoskeletal spine, ribs and pelvis Sacroiliac joints: [...] retractions 08/01/2011 None Full Exam - General 1995 Respiratory respiratory effort/rhythm Overall: normal rate 08/01/2011 [...] cerumen 06/20/2011 None Full Exam - General 1995 [...] Date GLUC MONITOR CONT PHYS I&R CPT-4: 91427 04/27/2018 URINALYSIS NONAUTO W/O SCOPE CPT-4: 73833 04/10/2018 GLUCOSE MONITORING CONT CPT-4: 65392 04/10/2018 OCCULT BLOOD FECES CPT -4: 22257 02/22/2018 URINALYSIS NONAUTO W/O SCOPE CPT-4: 64221 02/20/2018 URINALYSIS NONAUTO W/O SCOPE CPT-4: 85095 12/14/2017 URINALYSIS NONAUTO W/O SCOPE CPT-4: 48691 11/27/2017 PPPS, SUBSEQ VISIT CPT -4: G0439 10/27/2017 GLUCOSE MONITORING CONT CPT-4: 21193 09/27/2017 URINALYSIS NONAUTO W/O SCOPE CPT-4: 10532 06/30/2017 URINALYSIS NONAUTO W/O SCOPE CPT-4: 77959 11/25/2016 URINALYSIS NONAUTO W/O SCOPE CPT-4: 32576 10/21/2016 URINALYSIS NONAUTO W/O SCOPE CPT-4: 19968 06/24/2016 URINALYSIS NONAUTO W/O SCOPE CPT-4: 74694 04/11/2016 ADMIN PNEUMOCOCCAL VACCINE SNOMED CT: [id number] CPT-4: G0009 02/26/2016 PNEUMOCOCCAL VACC 13 ANURADHA IM Formatting Model/CDA Sections, Assigned to/Jada Velazquez SNOMED CT: [id number] CPT-4: 79379Qbohvcz 02/26/2016 URINALYSIS NONAUTO W/O SCOPE CPT-4: 08258 02/10/2016 URINALYSIS NONAUTO W/O SCOPE CPT-4: 50184 11/27/2015 URINALYSIS NONAUTO W/O SCOPE CPT-4: 42933 11/02/2015 INITIAL PREVENTIVE EXAM CPT-4: G0402 09/29/2015 URINALYSIS NONAUTO W/O SCOPE CPT-4: 19437 07/20/2015 TRIAMCINOLONE ACET INJ NOS CPT-4: J3301 06/26/2015 URINALYSIS NONAUTO W/O SCOPE CPT-4: 93307 11/05/2014 URINALYSIS NONAUTO W/O SCOPE CPT-4: 26496 04/21/2014 CULTURE AEROBIC IDENTIFY CPT-4: 09123 12/12/2013 URINALYSIS NONAUTO W/O SCOPE CPT-4: 27050 11/18/2013 ROUTINE VENIPUNCTURE CPT-4: 95329 09/10/2013 ROUTINE VENIPUNCTURE CPT-4: 03093 08/01/2013 URINALYSIS NONAUTO W/O SCOPE CPT-4: 80285 06/28/2013 TRIAMCINOLONE ACET INJ NOS CPT-4: J3301 05/07/2013 DRAIN/INJECT JOINT/BURSA CPT-4: 83394 05/07/2013 ROUTINE VENIPUNCTURE CPT-4: 56522 03/21/2013 ROUTINE VENIPUNCTURE CPT-4: 71118 01/17/2013 URINALYSIS NONAUTO W/O SCOPE CPT-4: 67617 01/01/2013 ROUTINE VENIPUNCTURE CPT-4: 96203 12/31/2012 ROUTINE VENIPUNCTURE CPT-4: 14325 12/20/2012 URINALYSIS NONAUTO W/O SCOPE CPT-4: 07776 11/05/2012 DRAIN/INJECT JOINT/BURSA CPT-4: 54826 09/21/2012 TRIAMCINOLONE ACET INJ NOS CPT-4: J3301 09/21/2012 URINALYSIS NONAUTO W/O SCOPE CPT-4: 22779 07/19/2012 TRIAMCINOLONE ACET INJ NOS CPT-4: J3301 07/06/2012 Pneumococcal Polysaccharide Vaccine, 23-Valent, Ad CPT-4: 36250 06/07/2012 IMMUNIZATION ADMIN CPT -4: 60374 06/07/2012 TRIAMCINOLONE ACET INJ NOS CPT-4: J3301 05/02/2012 ROUTINE VENIPUNCTURE CPT-4: 43002 02/01/2012 URINALYSIS NONAUTO W/O SCOPE CPT-4: 54827 02/01/2012 TRIAMCINOLONE ACET INJ NOS CPT-4: J3301 12/14/2011 INJ TRIGGER POINT 1/2 MUSCL CPT-4: 98738 12/14/2011 PROMETHAZINE HCL INJECTION CPT-4: J2550 11/30/2011 ROUTINE VENIPUNCTURE CPT-4: 31648 11/30/2011 TRIAMCINOLONE ACET INJ NOS CPT-4: J3301 08/01/2011 DRAIN/INJECT JOINT/BURSA CPT-4: 59571 08/01/2011 THER/PROPH/DIAG INJ SC/IM CPT-4: 97369 04/18/2011 TRIAMCINOLONE ACET INJ NOS CPT-4: J3301 04/18/2011 Vital Signs Date Vital 04/27/2018 Blood Pressure 1: 122/54 Code : 8480-6 BMI: 39.7 Code : 90968-0 Heart Rate 1 : 84 bpm Height: 5'2" SpO2: 92% 04/10/2018 Blood Pressure 1: 120/68 Code : 8480-6 BMI: 39.7 Code : 72534-1 Heart Rate 1 : 87 bpm Height: 5'2" SpO2: 99% Weight: 217 lbs 03/12/2018 Blood Pressure 1: 140/70 Code : 8480-6 BMI: 40.2 Code : 86029-4 Heart Rate 1 : 78 bpm Height: 5'2" SpO2: 98% Weight: 220 lbs 02/20/2018 Blood Pressure 1: 140/70 Code : 8480-6 BMI: 40.2 Code : 13919-5 Heart Rate 1 : 96 bpm Height: 5'2" SpO2: 93% Weight: 220 lbs 11/27/2017 Blood Pressure 1: 158/78 Code : 8480-6 BMI: 40.8 Code : 05463-8 Heart Rate 1 : 100 bpm Height: 5'2" SpO2: 95% Weight: 223 lbs 10/27/2017 Blood Pressure 1: 146/70 Code : 8480-6 BMI: 41.3 Code : 26526-6 Heart Rate 1 : 82 bpm Height: 5'2" SpO2: 99% Waist Measure (cm): 119 cm Weight: 226 lbs 09/15/2017 Blood Pressure 1: 136/66 Code : 8480-6 BMI: 41.5 Code : 70398-8 Heart Rate 1 : 94 bpm Height: 5'2" SpO2: 96% Weight: 227 lbs 08/18/2017 Blood Pressure 1: 120/68 Code : 8480-6 BMI: 41.5 Code : 74420-2 Heart Rate 1 : 87 bpm Height: 5'2" SpO2: 94% Weight: 227 lbs 08/03/2017 Blood Pressure 1: 132/72 Code : 8480-6 BMI: 41.5 Code : 83651-0 Heart Rate 1 : 93 bpm Height: 5'2" SpO2: 95% Weight: 227 lbs 07/27/2017 Blood Pressure 1: 128/84 Code : 8480-6 BMI: 41.5 Code : 17622-3 Heart Rate 1 : 91 bpm Height: 5'2" SpO2: 98% Weight: 227 lbs 06/13/2017 Blood Pressure 1: 136/84 Code : 8480-6 BMI: 42.6 Code : 24534-9 Heart Rate 1 : 91 bpm Height: 5'2" SpO2: 94% Weight: 233 lbs 04/21/2017 Blood Pressure 1: 142/84 Code : 8480-6 BMI: 42.8 Code : 24229-7 Heart Rate 1 : 89 bpm Height: 5'2" SpO2: 94% Weight: 234 lbs 04/18/2017 Blood Pressure 1: 140/86 Code : 8480-6 BMI: 42.8 Code : 84953-8 Heart Rate 1 : 89 bpm Height: 5'2" SpO2: 97% Weight: 234 lbs 03/27/2017 Blood Pressure 1: 148/76 Code : 8480-6 BMI: 42.6 Code : 78823-0 Heart Rate 1 : 92 bpm Height: [...] Code : 8480-6 BMI: 44.3 Code : 39590-0 Heart Rate 1 : 90 bpm Height: 5'2" SpO2: 96% Weight: 242 lbs 01/30/2017 Blood Pressure 1: 132/72 Code : 8480-6 Heart Rate 1: 97 bpm Height: 5'2" SpO2: 96% Weight: 01/16/2017 Blood Pressure 1: 138/76 Code : 8480-6 BMI: 43.3 Code : 74673-3 Heart Rate 1 : 84 bpm Height: 5'2" SpO2: 99% Weight: 237 lbs 12/13/2016 Blood Pressure 1: 144/78 Code : 8480-6 Heart Rate 1: 96 bpm Height: 5'2" SpO2: 98% Temperature: 36.6 (C) / 97.9 (F) Weight: 11/11/2016 Blood Pressure 1: 144/80 Code : 8480-6 BMI: 43.0 Code : 17363-9 Heart Rate 1 : 89 bpm Height: 5'2" SpO2: 94% Temperature: 36.1 (C) / 97.0 (F) Weight: 235 lbs 10/28/2016 Blood Pressure 1: 156/82 Code : 8480-6 BMI: 43.9 Code : 08476-3 Heart Rate 1 : 78 bpm Height: [...] Code : 8480-6 BMI: 42.4 Code : 30693-4 Heart Rate 1 : 95 bpm Height: 5'2" SpO2: 98% Weight: 232 lbs 08/09/2016 Blood Pressure 1: 138/80 Code : 8480-6 BMI: 41.0 Code : 46679-6 Heart Rate 1 : 98 bpm Height: 5'2" SpO2: 97% Weight: 224 lbs 07/26/2016 Blood Pressure 1: 148/82 Code : 8480-6 BMI: 42.4 Code : 75185-6 Heart Rate 1 : 89 bpm Height: 5'2" SpO2: 97% Weight: 232 lbs 05/24/2016 Blood Pressure 1: 146/72 Code : 8480-6 BMI: 42.4 Code : 51569-3 Heart Rate 1 : 89 bpm Height: 5'2" SpO2: 99% Weight: 232 lbs 04/19/2016 Blood Pressure 1: 130/88 Code : 8480-6 BMI: 42.4 Code : 12749-6 Heart Rate 1 : 88 bpm Height: 5'2" SpO2: 98% Weight: 232 lbs 04/11/2016 Blood Pressure 1: 140/80 Code : 8480-6 BMI: 41.7 Code : 20492-2 Heart Rate 1 : 97 bpm Height: 5'2" SpO2: 95% Weight: 228 lbs 03/21/2016 Blood Pressure 1: 138/80 Code : 8480-6 BMI: 44.4 Code : 83917-3 Height: 5'2" Weight: 243 lbs 03/11/2016 Blood Pressure 1: 138/82 Code : 8480-6 BMI: 44.4 Code : 03528-0 Heart Rate 1 : 86 bpm Height: 5'2" SpO2: 95% Weight: 243 lbs 02/26/2016 Blood Pressure 1: 130/82 Code : 8480-6 BMI: 43.9 Code : 04411-0 Heart Rate 1 : 86 bpm Height: 5'2" SpO2: 97% Weight: 240 lbs 02/02/2016 Blood Pressure 1: 136/86 Code : 8480-6 Heart Rate 1: 56 bpm Height: SpO2: 96% Weight: 12/17/2015 Blood Pressure 1: 140/80 Code : 8480-6 BMI: 40.2 Code : 73154-0 Heart Rate 1 : 100 bpm Height: 5'2" SpO2: 99% Weight: 220 lbs 12/08/2015 Blood Pressure 1: 132/86 Code : 8480-6 Heart Rate 1: 100 bpm Height: SpO2: 97% Weight: 11/27/2015 Blood Pressure 1: 128/82 Code : 8480-6 BMI: 39.3 Code : 38952-1 Heart Rate 1 : 112 bpm Height: 5'2" SpO2: 96% Weight: 215 lbs 11/12/2015 Blood Pressure 1: 168/88 Code : 8480-6 Heart Rate 1: 106 bpm Height: 5'2" SpO2: 96% Weight: 11/10/2015 Blood Pressure 1: 156/80 Code : 8480-6 Heart Rate 1: 94 bpm Height: 5'2" SpO2: 96% Weight: 10/27/2015 Blood Pressure 1: 142/76 Code : 8480-6 BMI: 40.8 Code : 67420-4 Heart Rate 1 : 86 bpm Height: 5'2" SpO2: 97% Weight: 223 lbs 09/29/2015 Blood Pressure 1: 132/88 Code : 8480-6 BMI: 41.7 Code : 26953-3 Heart Rate 1 : 104 bpm Height: 5'2" SpO2: 94% Weight: 228 lbs 09/22/2015 Blood Pressure 1: 130/80 Code : 8480-6 BMI: 41.7 Code : 53404-9 Heart Rate 1 : 89 bpm Height: 5'2" SpO2: 97% Weight: 228 lbs 09/01/2015 Blood Pressure 1: 138/88 Code : 8480-6 BMI: 40.6 Code : 26739-6 Heart Rate 1 : 95 bpm Height: 5'2" SpO2: 95% Weight: 222 lbs 08/10/2015 Blood Pressure 1: 140/82 Code : 8480-6 BMI: 41.0 Code : 22891-5 Heart Rate 1 : 84 bpm Height: 5'2" SpO2: 97% Weight: 224 lbs 06/26/2015 Blood Pressure 1: 152/72 Code : 8480-6 BMI: 41.2 Code : 16121-4 Heart Rate 1 : 92 bpm Height: 5'2" SpO2: 96% Weight: 225 lbs 04/14/2015 Blood Pressure 1: 158/86 Code : 8480-6 BMI: 41.2 Code : 10160-8 Heart Rate 1 : 63 bpm Height: 5'2" SpO2: 93% Weight: 225 lbs 03/03/2015 Blood Pressure 1: 152/80 Code : 8480-6 BMI: 40.1 Code : 08078-2 Heart Rate 1 : 101 bpm Height: 5'2" SpO2: 97% Weight: 219 lbs 01/15/2015 Blood Pressure 1: 127/76 Code : 8480-6 BMI: 40.6 Code : 65727-8 Heart Rate 1 : 109 bpm Height: 5'2" SpO2: 97% Weight: 222 lbs 01/01/2015 Blood Pressure 1: 136/64 Code : 8480-6 BMI: 40.4 Code : 41002-4 Heart Rate 1 : 94 bpm Height: 5'2" SpO2: 96% Weight: 221 lbs 12/25/2014 Blood Pressure 1: 146/80 Code : 8480-6 Heart Rate 1: 95 bpm Height: 5'2" SpO2: 94% 11/04/2014 Blood Pressure 1: 110/70 Code : 8480-6 BMI: 40.2 Code : 98077-9 Heart Rate 1 : 878 bpm Height: 5'2" SpO2: 97% Weight: 220 lbs 09/08/2014 Blood Pressure 1: 142/78 Code : 8480-6 BMI: 39.5 Code : 93685-3 Heart Rate 1 : 97 bpm Height: 5'2" SpO2: 98% Weight: 216 lbs 08/29/2014 Blood Pressure 1: 140/90 Code : 8480-6 Blood Pressure 2: 120/70 Code: 8480-6 BMI: 40.2 Code: 66989-4 Heart Rate 1: 88 bpm Height: 5'2" Weight: 220 lbs 06/30/2014 Blood Pressure 1: 132/74 Code : 8480-6 BMI: 39.1 Code : 63465-0 Heart Rate 1 : 76 bpm Height: 5'2" Weight: 214 lbs 06/12/2014 Blood Pressure 1: 118/76 Code : 8480-6 BMI: 40.4 Code : 84442-8 Heart Rate 1 : 86 bpm Height: 5'2" SpO2: 96% Weight: 221 lbs 05/26/2014 Blood Pressure 1: 128/78 Code : 8480-6 BMI: 39.5 Code : 45463-7 Heart Rate 1 : 76 bpm Height: 5'2" Weight: 216 lbs 04/15/2014 Blood Pressure 1: 144/72 Code : 8480-6 BMI: 40.8 Code : 68391-2 Heart Rate 1 : 60 bpm Height: 5'2" Weight: 223 lbs 03/25/2014 Blood Pressure 1: 118/72 Code : 8480-6 BMI: 41.2 Code : 38780-2 Heart Rate 1 : 80 bpm Height: 5'2" Weight: 225 lbs 03/03/2014 Blood Pressure 1: 138/86 Code : 8480-6 BMI: 41.5 Code : 05759-0 Heart Rate 1 : 104 bpm Height: 5'2" Temperature: 36.1 (C) / 97.0 (F) Weight: 227 lbs 02/13/2014 Blood Pressure 1: 142/88 Code : 8480-6 BMI: 40.8 Code : 40790-3 Heart Rate 1 : 88 bpm Height: 5'2" Weight: 223 lbs 01/27/2014 Blood Pressure 1: 124/68 Code : 8480-6 BMI: 39.9 Code : 39161-0 Heart Rate 1 : 89 bpm Height: 5'2" SpO2: 94% Weight: 218 lbs 12/26/2013 Blood Pressure 1: 108/52 Code : 8480-6 BMI: 41.2 Code : 17916-8 Heart Rate 1 : 96 bpm Height: 5'2" Weight: 225 lbs 12/12/2013 Blood Pressure 1: 158/88 Code : 8480-6 BMI: 42.6 Code : 93778-0 Heart Rate 1 : 80 bpm Height: 5'2" Weight: 233 lbs 11/14/2013 Blood Pressure 1: 120/60 Code : 8480-6 BMI: 42.4 Code : 94064-1 Heart Rate 1 : 96 bpm Height: 5'2" Temperature: 5423.3 (C ) / 9794.0 (F) Weight: 232 lbs 10/21/2013 Blood Pressure 1: 100/60 Code : 8480-6 BMI: 41.9 Code : 99695-6 Heart Rate 1 : 96 bpm Height: 5'2" Weight: 229 lbs 10/03/2013 Blood Pressure 1: 122/72 Code : 8480-6 BMI: 42.3 Code : 83870-9 Heart Rate 1 : 84 bpm Height: 5'2" Weight: 231 lbs 09/27/2013 Blood Pressure 1: 112/58 Code : 8480-6 Heart Rate 1: 72 bpm SpO2: 93% Temperature: 36.2 (C) / 97.1 (F) Weight: 09/23/2013 Blood Pressure 1: 108/76 Code : 8480-6 BMI: 42.4 Code : 02005-0 Heart Rate 1 : 95 bpm Height: 5'2" SpO2: 96% Weight: 232 lbs 09/20/2013 Blood Pressure 1: 150/88 Code : 8480-6 BMI: 42.4 Code : 60465-6 Heart Rate 1 : 104 bpm Height: 5'2" Weight: 232 lbs 09/10/2013 Blood Pressure 1: 112/62 Code : 8480-6 Heart Rate 1: 88 bpm Weight: 238 lbs 08/19/2013 Blood Pressure 1: 102/58 Code : 8480-6 BMI: 43.7 Code : 93677-9 Heart Rate 1 : 80 bpm Height: 5'2" Weight: 239 lbs 08/12/2013 Blood Pressure 1: 110/60 Code : 8480-6 BMI: 43.3 Code : 14726-1 Heart Rate 1 : 90 bpm Height: 5'2" SpO2: 96% Weight: 236 lbs 8 oz 08/01/2013 Blood Pressure 1: 128/72 Code : 8480-6 BMI: 42.6 Code : 92081-1 Heart Rate 1 : 78 bpm Height: 5'2" SpO2: 97% Weight: 233 lbs 07/19/2013 Blood Pressure 1: 100/60 Code : 8480-6 BMI: 44.3 Code : 34462-6 Heart Rate 1 : 92 bpm Height: 5'2" Temperature: 36.2 (C) / 97.2 (F) Weight: 242 lbs 07/15/2013 Blood Pressure 1: 180/92 Code : 8480-6 Heart Rate 1: 115 bpm SpO2: 98% Weight: 06/27/2013 Blood Pressure 1: 114/64 Code : 8480-6 BMI: 44.1 Code : 51144-2 Heart Rate 1 : 114 bpm Height: 5'2" SpO2: 93% Weight: 241 lbs 06/10/2013 Blood Pressure 1: 174/86 Code : 8480-6 BMI: 44.1 Code : 67940-2 Heart Rate 1 : 132 bpm Height: 5'2" SpO2: 94% Temperature: 35.6 (C) / 96.0 (F) Weight: 241 lbs 05/07/2013 Blood Pressure 1: 160/88 Code : 8480-6 BMI: 43.5 Code : 17726-5 Heart Rate 1 : 108 bpm Height: 5'2" SpO2: 96% Weight: 238 lbs 04/16/2013 Blood Pressure 1: 116/62 Code : 8480-6 BMI: 44.6 Code : 75063-7 Heart Rate 1 : 90 bpm Height: 5'2" SpO2: 94% Weight: 244 lbs 03/21/2013 Blood Pressure 1: 102/64 Code : 8480-6 BMI: 42.8 Code : 46464-8 Height: 5'2" Weight: 234 lbs 02/12/2013 Blood Pressure 1: 130/78 Code : 8480-6 BMI: 42.0 Code : 72729-7 Heart Rate 1 : 100 bpm Height: 5'2" Weight: 229 lbs 8 oz 02/04/2013 Blood Pressure 1: 126/68 Code : 8480-6 BMI: 44.3 Code : 81469-3 Heart Rate 1 : 88 bpm Height: 5'2" Weight: 242 lbs 01/17/2013 Blood Pressure 1: 132/76 Code : 8480-6 Heart Rate 1: 121 bpm SpO2: 97% Weight: 242 lbs 12/31/2012 Blood Pressure 1: 144/90 Code : 8480-6 BMI: 43.0 Code : 18853-7 Heart Rate 1 : 96 bpm Height: 5'2" Temperature: 36.2 (C) / 97.2 (F) Weight: 235 lbs 12/20/2012 Blood Pressure 1: 156/96 Code : 8480-6 BMI: 42.4 Code : 13309-3 Heart Rate 1 : 96 bpm Height: [...] Code : 8480-6 BMI: 38.8 Code : 14672-5 Heart Rate 1 : 96 bpm Height: 5'2" Temperature: 36.3 (C) / 97.3 (F) Weight: 212 lbs 08/23/2012 Blood Pressure 1: 116/72 Code : 8480-6 BMI: 38.3 Code : 30879-0 Heart Rate 1 : 92 bpm Height: 5'2" Weight: 209 lbs 8 oz 08/13/2012 Blood Pressure 1: 140/92 Code : 8480-6 BMI: 37.3 Code : 28608-3 Heart Rate 1 : 104 bpm Height: 5'2" Weight: 204 lbs 08/07/2012 Blood Pressure 1: 148/98 Code : 8480-6 BMI: 36.6 Code : 63635-0 Heart Rate 1 : 102 bpm Height: [...] Code : 8480-6 BMI: 35.3 Code : 40653-8 Heart Rate 1 : 105 bpm Height: [...] december - she was seen by her director of culture again in mid 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 She states that she saw her director of culture and was to be started on another [...] lesion Alleviating Factors medication 09/10/2013 went to [facility] on Monday and start on Cipro [...] differently. States she did eat BBQ from [employer] yesterday for lunch. hypertension Quality chronic [...] data Encounters Encounter Performer Location Codes Date ([id number]) [id number] EST. PATIENT, LEVEL III Diagnosis: Cough[ICD10: R05] Diagnosis: Chronic maxillary sinusitis[ICD10: J32.0] Diagnosis: Type 2 diabetes mellitus with hyperglycemia[ICD10: E11.65] Rika Motta MD, [facility] CPT-4: 19202 04/27/[id number]) [id number] EST. PATIENT, LEVEL IV Diagnosis: Essential (primary) hypertension[ICD10: I10] Diagnosis: Type 2 diabetes mellitus with hyperglycemia[ICD10: E11.65] Diagnosis: Generalized anxiety disorder[ICD10: F41.1] Diagnosis: Weakness[ICD10: R53.1] Rika Motta MD, [facility] CPT-4: 77901 04/10/2018 [id number]) 72317 EST. PATIENT, LEVEL IV Diagnosis: Type 2 diabetes mellitus with hyperglycemia[ICD10: E11.65] Diagnosis: Low back pain[ICD10: M54.5] Diagnosis: Essential (primary) hypertension[ICD10: I10] Diagnosis: Generalized anxiety disorder[ICD10: F41.1] Rika Motta MD, [facility] CPT-4: 45387 03/12/2018 ([id number]) 76165 EST. PATIENT, LEVEL III Diagnosis: Type 2 diabetes mellitus with hyperglycemia[ICD10: E11.65] Diagnosis: Essential (primary) hypertension[ICD10: I10] Diagnosis: Dysuria[ICD10: R30.0] Diagnosis: Vitamin D deficiency, unspecified[ICD10: E55.9] Diagnosis: Low back pain[ICD10: M54.5] Rika Motta MD, [facility] CPT-4: 72115 02/20/2018 [id number]) 94977 EST. PATIENT, LEVEL III Diagnosis: Dysuria[ICD10: R30.0] Diagnosis: Essential (primary) hypertension[ICD10: I10] Rika Motta MD, [facility] CPT-4: 55749 11/27/2017 ([id number]) 50874 EST. PATIENT, LEVEL III Diagnosis: Type 2 diabetes mellitus with hyperglycemia[ICD10: E11.65] Diagnosis: Chronic pain syndrome[ICD10: G89.4] Rika Motta MD, [facility] CPT-4: 87844 09/15/2017 ([id number]) 45828 EST. 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 PATIENT, LEVEL III Diagnosis: Chronic maxillary sinusitis[ICD10: J32.0] Diagnosis: Type 2 diabetes mellitus with hyperglycemia[ICD10: E11.65] Diagnosis: Hordeolum externum left upper eyelid[ICD10: H00.014] Rika Motta MD, [facility] CPT-4: 43558 08/03/2017 ([id number]) 63017 EST. PATIENT, LEVEL IV Diagnosis: Type 2 diabetes mellitus with hyperglycemia[ICD10: E11.65] Diagnosis: Hordeolum externum left upper eyelid[ICD10: H00.014] Diagnosis: Essential (primary) hypertension[ICD10: I10] Diagnosis: Chronic obstructive pulmonary disease, unspecified[ICD10: J44.9] Rika Motta MD, [facility] CPT-4: 89849 07/27/2017 ([id number]) 37944 EST. PATIENT, LEVEL IV Diagnosis: Type 2 diabetes mellitus with hyperglycemia[ICD10: E11.65] Diagnosis: Essential (primary) hypertension[ICD10: I10] Tessie Motta MD, [facility] CPT-4: 23745 06/13/2017 [id number] EST. PATIENT, LEVEL IV Diagnosis: Periapical abscess without sinus[ICD10: K04.7] Arlette Motta MD, [facility] CPT-4: 05238 04/21/2017 ([id number]) 68072 EST. PATIENT, LEVEL IV Diagnosis: Type 2 diabetes mellitus with hyperglycemia[ICD10: E11.65] Diagnosis: Cellulitis of abdominal wall[ICD10: L03.311] Diagnosis: Chronic pain syndrome[ICD10: G89.4] Diagnosis: Essential (primary) hypertension[ICD10: I10] Diagnosis: Unsteadiness on feet[ICD10: R26.81] Rika Motta MD, [facility] CPT-4: 29229 04/18/2017 ([id number]) 58448 EST. PATIENT, LEVEL IV Diagnosis: Type 2 diabetes mellitus with hyperglycemia[ICD10: E11.65] Diagnosis: Hypokalemia[ICD10: E87.6] Diagnosis: Essential (primary) hypertension[ICD10: I10] Diagnosis: Paroxysmal atrial fibrillation[ICD10: I48.0] Rika Motta MD, [facility] CPT-4: 96489 03/27/2017 ([id number]) 84923 EST. PATIENT, LEVEL IV Diagnosis: Essential (primary) hypertension[ICD10: I10] Diagnosis: Type 2 diabetes mellitus with hyperglycemia[ICD10: E11.65] Diagnosis: Hypokalemia[ICD10: E87.6] Diagnosis: Generalized abdominal pain[ICD10: R10.84] Rika Motta MD, [facility] CPT-4: 73577 02/27/2017 ([id number]) 01631 EST. PATIENT, LEVEL III Diagnosis: Drug induced constipation[ICD10: K59.03] Rika Motta MD, [facility] CPT-4: 99834 02/21/2017 ([id number]) 47434 EST. PATIENT, LEVEL IV Diagnosis: Generalized abdominal pain[ICD10: R10.84] Diagnosis: Hypokalemia[ICD10: E87.6] Diagnosis: Hypomagnesemia[ICD10: E83.42] Rika Motta MD, [facility] CPT-4: 69169 02/17/2017 ([id number]) 42379 EST. PATIENT, LEVEL IV Diagnosis: Paroxysmal atrial fibrillation[ICD10: I48.0] Diagnosis: Essential (primary) hypertension[ICD10: I10] Diagnosis: Chronic obstructive pulmonary disease, unspecified[ICD10: J44.9] Diagnosis: Type 2 diabetes mellitus with hyperglycemia[ICD10: E11.65] Diagnosis: Diarrhea, unspecified[ICD10: R19.7] Rika Motta MD, [facility] CPT-4: 40554 02/13/2017 ([id number]) 98139 EST. PATIENT, LEVEL IV Diagnosis: Type 2 diabetes mellitus with hyperglycemia[ICD10: E11.65] Diagnosis: Pain in right shoulder[ICD10: M25.511] Diagnosis: Chronic maxillary sinusitis[ICD10: J32.0] Rika Motta MD, [facility] CPT-4: 02294 01/30/2017 ([id number]) 09294 EST. PATIENT, LEVEL IV Diagnosis: Essential (primary) hypertension[ICD10: I10] Diagnosis: Type 2 diabetes mellitus with hyperglycemia[ICD10: E11.65] Diagnosis: Hypothyroidism, unspecified[ICD10: E03.9] Diagnosis: Generalized anxiety disorder[ICD10: F41.1] Diagnosis: Chronic pain syndrome[ICD10: G89.4] Diagnosis: Restless legs syndrome[ICD10: G25.81] Diagnosis: Obstructive sleep apnea (adult) (pediatric)[ICD10: G47.33] Rika Motta MD, [facility] CPT-4: 77809 01/16/2017 [id number] EST. PATIENT, LEVEL IV Diagnosis: Other acute sinusitis[ICD10: J01.80] Diagnosis: Diplopia[ICD10: H53.2] Arlette Motta MD, [facility] CPT-4: 70806 12/13/2016 [id number]) [id number] EST. PATIENT, LEVEL IV Diagnosis: Essential (primary) hypertension[ICD10: I10] Diagnosis: Fasciculation[ICD10: R25.3] Diagnosis: Generalized anxiety disorder[ICD10: F41.1] Diagnosis: Other obesity due to excess calories[ICD10: E66.09] Diagnosis: [place] without complications[ICD10: B02.9] Diagnosis: Unilateral primary osteoarthritis, right knee[ICD10: M17.11] Diagnosis: Unsteadiness on feet[ICD10: R26.81] Rika Motta MD, [facility] CPT-4: 71119 11/11/2016 [id number]) [id number] EST. PATIENT, LEVEL IV Diagnosis: [place] without complications[ICD10: B02.9] Diagnosis: Type 2 diabetes mellitus with hyperglycemia[ICD10: E11.65] Diagnosis: Vomiting, unspecified[ICD10: R11.10] Rika Motta MD, [facility] CPT-4: 47548 10/28/2016 ([id number]) 75988 EST. PATIENT, LEVEL III Diagnosis: Pain in right knee[ICD10: M25.561] Diagnosis: [place] without complications[ICD10: B02.9] Rika Motta MD, [facility] CPT-4: 02734 10/13/2016 ([id number]) 87571 EST. PATIENT, LEVEL IV Diagnosis: Acute recurrent maxillary sinusitis[ICD10: J01.01] Diagnosis: Low back pain[ICD10: M54.5] Diagnosis: Pain in right knee[ICD10: M25.561] Diagnosis: Allergic rhinitis due to pollen[ICD10: J30.1] Rika Motta MD, [facility] CPT-4: 43172 09/23/2016 ([id number]) 30180 EST. PATIENT, LEVEL IV Diagnosis: Pain in right shoulder[ICD10: M25.511] Diagnosis: Type 2 diabetes mellitus with hyperglycemia[ICD10: E11.65] Diagnosis: Cervicalgia[ICD10: M54.2] Diagnosis: Candidiasis of skin and nail[ICD10: B37.2] Diagnosis: Low back pain[ICD10: M54.5] Rika Motta MD, [facility] CPT-4: 18026 09/13/2016 ([id number]) 51745 EST. 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 PATIENT, LEVEL IV Diagnosis: Type 2 diabetes mellitus with hyperglycemia[ICD10: E11.65] Diagnosis: Candidiasis of skin and nail[ICD10: B37.2] Diagnosis: Chronic obstructive pulmonary disease, unspecified[ICD10: J44.9] Diagnosis: Paroxysmal atrial fibrillation[ICD10: I48.0] Diagnosis: Pneumonia, unspecified organism[ICD10: J18.9] Rika Motta MD, [facility] CPT-4: 34115 07/26/2016 ([id number]) 18839 EST. PATIENT, LEVEL IV Diagnosis: Type 2 diabetes mellitus with hyperglycemia[ICD10: E11.65] Diagnosis: Generalized anxiety disorder[ICD10: F41.1] Diagnosis: Essential (primary) hypertension[ICD10: I10] Diagnosis: Chronic pain syndrome[ICD10: G89.4] Rika Motta MD, [facility] CPT-4: 87904 05/24/2016 ([id number]) 21964 EST. PATIENT, LEVEL IV Diagnosis: Menopausal and female climacteric states[ICD10: N95.1] Diagnosis: Type 2 diabetes mellitus with hyperglycemia[ICD10: E11.65] Diagnosis: Generalized anxiety disorder[ICD10: F41.1] Rika Motta MD, [facility] CPT-4: 99200 04/19/2016 ([id number]) 24416 EST. PATIENT, LEVEL IV Diagnosis: Type 2 diabetes mellitus with hyperglycemia[ICD10: E11.65] Diagnosis: Generalized anxiety disorder[ICD10: F41.1] Diagnosis: Essential (primary) hypertension[ICD10: I10] Diagnosis: Dysuria[ICD10: R30.0] Rika Motta MD, [facility] CPT-4: 33912 04/11/2016 ([id number]) 79906 EST. PATIENT, LEVEL IV Diagnosis: Generalized anxiety disorder[ICD10: F41.1] Diagnosis: Major depressive disorder, single episode, mild[ICD10: F32.0] Diagnosis: Hypothyroidism, unspecified[ICD10: E03.9] Diagnosis: Type 2 diabetes mellitus with hyperglycemia[ICD10: E11.65] Rika Motta MD, [facility] CPT-4: 26621 03/21/2016 ([id number]) 99655 EST. PATIENT, LEVEL IV Diagnosis: Type 2 diabetes mellitus with hyperglycemia[ICD10: E11.65] Diagnosis: Cellulitis of right lower limb[ICD10: L03.115] Diagnosis: Other elevated white blood cell count[ICD10: D72.828] Diagnosis: Localized edema[ICD10: R60.0] Rika Motta MD, [facility] CPT-4: 28828 03/11/2016 ([id number] 06209 EST. PATIENT, LEVEL IV Diagnosis: Type 2 diabetes mellitus with hyperglycemia[ICD10: E11.65] Diagnosis: Localized edema[ICD10: R60.0] Diagnosis: Other conjunctivitis[ICD10: H10.89] Diagnosis: Obstructive sleep apnea (adult) (pediatric)[ICD10: G47.33] Diagnosis: Unspecified asthma, uncomplicated[ICD10: J45.909] Diagnosis: VAC STREP PNEUMONIAE-FLU[ICD10: Z23] Rika Motta MD, [facility] CPT-4: 81265 02/26/2016 ([id number] 93350 EST. PATIENT, LEVEL IV Diagnosis: Essential (primary) hypertension[ICD10: I10] Diagnosis: Paroxysmal atrial fibrillation[ICD10: I48.0] Diagnosis: Type 2 diabetes mellitus with hyperglycemia[ICD10: E11.65] Diagnosis: Obstructive sleep apnea (adult) (pediatric)[ICD10: G47.33] Diagnosis: Chronic obstructive pulmonary disease, unspecified[ICD10: J44.9] Rika Motta MD, [facility] CPT-4: 37948 02/02/2016 ([id number] 26044 EST. 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 PATIENT, LEVEL IV Diagnosis: Type 2 diabetes mellitus with hyperglycemia[ICD10: E11.65] Diagnosis: Generalized anxiety disorder[ICD10: F41.1] Diagnosis: Essential (primary) hypertension[ICD10: I10] Diagnosis: Restless legs syndrome[ICD10: G25.81] Diagnosis: Dysuria[ICD10: R30.0] Rika Motta MD, [facility] CPT-4: 10620 11/27/2015 99722 EST. PATIENT, LEVEL IV Diagnosis: Addisonian crisis[ICD10: E27.2] Arlette Motta MD, [facility] CPT-4 : 08184 11/12/2015 49729 EST. PATIENT, LEVEL IV Diagnosis: Acute bronchitis due to other specified organisms[ICD10: J20.8] Diagnosis: Other acute sinusitis[ICD10: J01.80] Diagnosis: Other malaise[ICD10: R53.81] Diagnosis: Cough[ICD10: R05] Arlette Motta MD, [facility] CPT-4: 76454 11/10/2015 35699 EST. PATIENT, LEVEL IV Diagnosis: Pain in left knee[ICD10: M25.562] Diagnosis: Cellulitis of right toe[ICD10: L03.031] Arlette Motta MD, [facility] CPT-4: 97351 10/27/2015 ([id number]) 42034 EST. PATIENT, LEVEL IV Diagnosis: Essential (primary) hypertension[ICD10: I10] Diagnosis: Localized edema[ICD10: R60.0] Diagnosis: Type 2 diabetes mellitus with hyperglycemia[ICD10: E11.65] Rika Motta MD, [facility] CPT-4: 48624 09/22/2015 ([id number]) 22748 EST. PATIENT, LEVEL IV Diagnosis: Essential (primary) hypertension[ICD10: I10] Diagnosis: Type 2 diabetes mellitus with hyperglycemia[ICD10: E11.65] Diagnosis: Cellulitis of right toe[ICD10: L03.031] Rika Motta MD, [facility] CPT-4: 82025 09/01/2015 ([id number]) 26137 EST. PATIENT, LEVEL IV Diagnosis: Type 2 diabetes mellitus with hyperglycemia[ICD10: E11.65] Diagnosis: Essential (primary) hypertension[ICD10: I10] Diagnosis: Generalized anxiety disorder[ICD10: F41.1] Diagnosis: Hypothyroidism, unspecified[ICD10: E03.9] Diagnosis: Body mass index (BMI) 40.0-44.9, adult[ICD10: Z68.41] Rika Motta MD, [facility] CPT-4: 50674 08/10/2015 52468 EST. PATIENT, LEVEL IV Diagnosis: Acute bronchitis due to other specified organisms[ICD10: J20.8] Diagnosis: Pain in left knee[ICD10: M25.562] Diagnosis: Type 2 diabetes mellitus with hyperglycemia[ICD10: E11.65] Arlette Motta MD, [facility] CPT-4: 19333 06/26/2015 ([id number]) 88639 EST. PATIENT, LEVEL IV Diagnosis: Cellulitis of right lower limb[ICD10: L03.115] Diagnosis: Type 2 diabetes mellitus with hyperglycemia[ICD10: E11.65] Diagnosis: Essential (primary) hypertension[ICD10: I10] Diagnosis: Edema, unspecified[ICD10: R60.9] Rika Motta MD, [facility] CPT-4: 04449 04/14/2015 ([id number]) 49719 EST. PATIENT, LEVEL IV Diagnosis: Essential (primary) hypertension[ICD10: I10] Diagnosis: Type 2 diabetes mellitus with hyperglycemia[ICD10: E11.65] Diagnosis: Localized edema[ICD10: R60.0] Diagnosis: Dysuria[ICD10: R30.0] Rika Motta MD, [facility] CPT-4: 58641 03/03/2015 ([id number]) 39840 EST. PATIENT, LEVEL III Diagnosis: Blister of leg[ICD9: 916.2] Diagnosis: Rash[ICD9: 782.1] Diagnosis: EDEMA[ICD9: 782.3] Tessie Motta MD, [facility] CPT-4: 94153 01/15/2015 ([id number]) 40186 EST. PATIENT, LEVEL IV Diagnosis: Cellulitis, leg[ICD9: 682.6] Diagnosis: DIABETES TYPE II[ICD9: 250.00] Tessie Motta MD, [facility] CPT- 4: 55957 01/01/2015 ([id number]) Miscellaneous no charge Diagnosis: CVA (cerebral vascular accident)[ICD9: 434.91] Isabella Motta MD, [facility] CPT-4: 29259 12/25/2014 ([id number]) 54963 EST. PATIENT, LEVEL IV Diagnosis: ESSENTIAL HYPERTENSION[ICD9: 401.9] Diagnosis: DM W/O COMPLICATION TYPE II, UNCONTROLLED[ICD9: 250.02] Diagnosis: EDEMA[ICD9: 782.3] Diagnosis: Dysuria[ICD9: 788.1] Rika Motta MD, [facility] CPT-4: 54864 11/04/2014 ([id number]) 49406 EST. PATIENT, LEVEL IV Diagnosis: EDEMA[ICD9: 782.3] Diagnosis: Cellulitis of right leg[ICD9: 682.6] Diagnosis: Allergic rhinitis[ICD9: 477.9] Rika Motta MD, [facility] CPT-4: 95884 09/08/2014 ([id number]) 51981 EST. PATIENT, LEVEL IV Diagnosis: EDEMA[ICD9: 782.3] Diagnosis: ESSENTIAL HYPERTENSION[ICD9: 401.9] Diagnosis: DIABETES TYPE II[ICD9: 250.00] Diagnosis: Cellulitis of right leg[ICD9: 682.6] Rika Motta MD, [facility] CPT-4: 50062 08/29/2014 ([id number]) 83289 EST. PATIENT, LEVEL III Diagnosis: EDEMA[ICD9: 782.3] Diagnosis: DIABETES TYPE II[ICD9: 250.00] Tessie Motta MD, [facility] CPT- 4: 86177 06/30/2014 ([id number]) 19834 EST. PATIENT, LEVEL IV Diagnosis: EDEMA[ICD9: 782.3] Diagnosis: DM W/O COMPLICATION TYPE II, UNCONTROLLED[ICD9: 250.02] Diagnosis: Sciatica[ICD9: 724.3] Tessie Motta MD, [facility] CPT-4: 08990 06/12/2014 ([id number]) 90334 EST. PATIENT, LEVEL III Diagnosis: Cellulitis, leg[ICD9: 682.6] Diagnosis: EDEMA[ICD9: 782.3] Rika Motta MD, [facility] CPT-4: 99248 05/26/2014 ([id number]) 92986 EST. PATIENT, LEVEL IV Diagnosis: DIABETES TYPE II[ICD9: 250.00] Diagnosis: Chronic sinusitis[ICD9: 473.9] Tessie Motta MD [facility] CPT- 4: 08631 04/15/2014 ([id number]) 00651 EST. PATIENT, LEVEL IV Diagnosis: DM W/O COMPLICATION TYPE II, UNCONTROLLED[ICD9: 250.02] Diagnosis: CHRONIC SINUSITIS[ICD9: 473.9] Diagnosis: EDEMA[ICD9: 782.3] Diagnosis: Right knee pain[ICD9: 719.46] Rika Motta MD, [facility] CPT-4: 29798 03/25/2014 ([id number]) 52819 EST. PATIENT, LEVEL IV Diagnosis: Blister of leg[ICD9: 916.2] Diagnosis: EDEMA[ICD9: 782.3] Diagnosis: DM W/O COMPLICATION TYPE II, UNCONTROLLED[ICD9: 250.02] Diagnosis: ESSENTIAL HYPERTENSION[ICD9: 401.9] Rika Motta MD, [facility] CPT-4: 78222 03/03/2014 ([id number]) 28885 EST. PATIENT, LEVEL IV Diagnosis: CELLULITIS OF LEG[ICD9: 682.6] Diagnosis: Diabetes mellitus type 2, uncontrolled[ICD9: 250.02] Diagnosis: ESSENTIAL HYPERTENSION[ICD9: 401.9] Diagnosis: EDEMA[ICD9: 782.3] Tessie Motta MD, [facility] CPT-4: 94849 02/13/2014 ([id number]) 42334 EST. PATIENT, LEVEL IV Diagnosis: Diabetes mellitus type 2, uncontrolled[ICD9: 250.02] Tessie Motta MD, [facility] CPT-4: 73961 01/27/2014 ([id number]) 58823 EST. PATIENT, LEVEL III Diagnosis: OPEN WND KNEE/LEG/ANKLE[ICD9: 891.0] Diagnosis: EDEMA[ICD9: 782.3] Rika Motta MD, [facility] CPT-4: 91007 12/26/2013 ([id number] 48350 EST. PATIENT, LEVEL III Diagnosis: Cellulitis of right leg[ICD9: 682.6] Diagnosis: OPEN WND KNEE/LEG/ANKLE[ICD9: 891.0] Rika Motta MD, [facility] CPT-4: 62123 12/12/2013 ([id number]) 74394 EST. PATIENT, LEVEL IV Diagnosis: Asthma exacerbation[ICD9: 493.92] Diagnosis: COUGH[ICD9: 786.2] Diagnosis: EDEMA[ICD9: 782.3] Rika Motta MD, [facility] CPT-4: 94777 11/14/2013 ([id number]) 47026 EST. PATIENT, LEVEL III Diagnosis: OPEN WND KNEE/LEG/ANKLE[ICD9: 891.0] Diagnosis: EDEMA[ICD9: 782.3] Rika Motta MD, [facility] CPT-4: 54925 10/21/2013 ([id number]) 49192 EST. PATIENT, LEVEL IV Diagnosis: ESSENTIAL HYPERTENSION[SNOMED: 38755871] Diagnosis: Right knee pain[ICD9: 719.46] Diagnosis: OPEN WND KNEE/LEG/ANKLE[ICD9: 891.0] Rika Motta MD, [facility] CPT-4: 67523 10/03/2013 ([id number]) Miscellaneous no charge Diagnosis: Open wound of leg[ICD9: 891.0] Rika Motta MD, [facility] CPT-4: 47964 09/27/2013 44009 EST. PATIENT, LEVEL II Diagnosis: Open wound of leg[ICD9: 891.0] Diagnosis: Wrist pain, left[ICD9: 719.43] Rika Motta MD, [facility] CPT-4: 34503 09/23/2013 ([id number]) 17391 EST. PATIENT, LEVEL IV Diagnosis: CELLULITIS OF LEG[ICD9: 682.6] Diagnosis: ESSENTIAL HYPERTENSION[SNOMED: 38032413] Diagnosis: EDEMA[ICD9: 782.3] Rika Motta MD, [facility] CPT-4: 47016 09/20/2013 ([id number]) 42333 EST. PATIENT, LEVEL IV Diagnosis: Open wound of right lower leg[ICD9: 891.0] Diagnosis: DM W/O COMPLICATION TYPE II, UNCONTROLLED[SNOMED: 27043373] Diagnosis: Edema[ICD9: 782.3] Rika Motta MD, [facility] CPT-4: 81328 09/10/2013 ([id number]) 59841 EST. PATIENT, LEVEL III Diagnosis: DM W/O COMPLICATION TYPE II, UNCONTROLLED[SNOMED: 06831856] Diagnosis: EDEMA[ICD9: 782.3] Tessie Motta MD [facility] CPT-4: 90622 08/19/2013 ([id number]) 07379 EST. PATIENT, LEVEL IV Diagnosis: EDEMA[ICD9: 782.3] Diagnosis: DIABETES TYPE II[SNOMED: 206223207] Diagnosis: HYPOTHYROIDISM[ICD9: 244.9] Diagnosis: LUMBAGO[ICD9: 724.2] Diagnosis: SCIATICA[ICD9: 724.3] Tessie Motta MD [facility] CPT-4: 91899 08/12/2013 ([id number]) 35612 EST. PATIENT, LEVEL IV Diagnosis: DIABETES TYPE II[SNOMED: 736081489] Diagnosis: EDEMA[ICD9: 782.3] Diagnosis: HYPOTHYROIDISM[ICD9: 244.9] Diagnosis: Encounter for long-term (current) use of other medications[ICD9: V58.69] Diagnosis: LUMBAGO[ICD9: 724.2] Rika Motta MD [facility] CPT-4: 12723 08/01/2013 ([id number]) 05990 EST. PATIENT, LEVEL III Diagnosis: Blister of right foot[ICD9: 917.2] Rika Motta MD [facility] CPT-4: 53151 07/19/2013 ([id number]) 09604 EST. PATIENT, LEVEL III Diagnosis: Cellulitis of right leg[ICD9: 682.6] Diagnosis: ESSENTIAL HYPERTENSION[SNOMED: 37421425] Diagnosis: EDEMA[ICD9: 782.3] Rika Motta MD [facility] CPT-4: 95994 07/15/2013 ([id number]) 95067 EST. PATIENT, LEVEL IV Diagnosis: DIABETES TYPE II[SNOMED: 439820867] Diagnosis: BACKACHE[ICD9: 724.5] Diagnosis: Muscle spasms of neck[ICD9: 728.85] Tessie Motta MD [facility] CPT-4: 54706 06/27/2013 ([id number]) 83047 EST. PATIENT, LEVEL IV Diagnosis: DM W/O COMPLICATION TYPE II, UNCONTROLLED[SNOMED: 62702567] Diagnosis: EDEMA[ICD9: 782.3] Diagnosis: OBESITY[ICD9: 278.00] Diagnosis: WHEEZING[ICD9: 786.07] Tessie Motta MD [facility] CPT-4: 93137 06/10/2013 ([id number]) 09099 EST. PATIENT, LEVEL IV Diagnosis: CHRONIC SINUSITIS[ICD9: 473.9] Diagnosis: WHEEZING[ICD9: 786.07] Diagnosis: ACUTE BRONCHITIS[ICD9: 466.0] Diagnosis: Back pain[ICD9: 724.5] Tessie Motta MD, [facility] CPT-4: 89945 05/07/2013 ([id number]) 36916 EST. PATIENT, LEVEL IV Diagnosis: EDEMA[ICD9: 782.3] Diagnosis: COPD (chronic obstructive pulmonary disease) with acute bronchitis[ ICD9: 491.22] Tessie Motta MD, [facility] CPT-4: 81437 04/16/2013 ([id number]) 20506 EST. PATIENT, LEVEL IV Diagnosis: Lumbago[ICD9: 724.2] Diagnosis: DM W/O COMPLICATION TYPE II, UNCONTROLLED[SNOMED: 03923591] Diagnosis: EDEMA[ICD9: 782.3] Rika Motta MD, [facility] CPT-4: 28719 03/21/2013 ([id number]) 64623 EST. PATIENT, LEVEL IV Diagnosis: Abdominal pain[ICD9: 789.00] Diagnosis: EDEMA[ICD9: 782.3] Diagnosis: DIABETES TYPE II[SNOMED: 376331534] Tessie Motta MD, [facility] CPT-4: 03565 02/12/2013 ([id number]) 80665 EST. PATIENT, LEVEL III Diagnosis: EDEMA[ICD9: 782.3] Diagnosis: RESPIRATORY ABNORM NEC[ICD9: 786.09] Tessie Motta MD, [facility] CPT-4: 28629 02/04/2013 ([id number]) 14274 EST. PATIENT, LEVEL IV Diagnosis: Edema[ICD9: 782.3] Diagnosis: ESSENTIAL HYPERTENSION[SNOMED: 58411636] Tessie Motta MD [facility] CPT-4: 14324 01/17/2013 ([id number]) 63927 EST. PATIENT, LEVEL IV Diagnosis: ESSENTIAL HYPERTENSION[SNOMED: 29412906] Diagnosis: Diabetic leg ulcer[ICD9: 250.80] Diagnosis: Callus[ICD9: 700] Diagnosis: Urinary urgency[ICD9: 788.63] Diagnosis: HYPOTHYROIDISM[ICD9: 244.9] Rika Motta MD, [facility] CPT-4: 25281 12/31/2012 ([id number]) 03973 EST. PATIENT, LEVEL IV Diagnosis: Cellulitis of left leg[ICD9: 682.6] Diagnosis: DIABETES TYPE II[SNOMED: 721908839] Diagnosis: ESSENTIAL HYPERTENSION[SNOMED: 26841163] Diagnosis: EDEMA[ICD9: 782.3] Rika Motta MD [facility] CPT-4: 67063 12/20/2012 ([id number]) 16299 EST. PATIENT, LEVEL III Diagnosis: Acute bronchitis[ICD9: 466.0] Diagnosis: COUGH[ICD9: 786.2] Tessie Motta MD, [facility] CPT-4: 83841 10/29/2012 ([id number]) 16906 EST. PATIENT, LEVEL IV Diagnosis: ESSENTIAL HYPERTENSION[SNOMED: 58503604] Diagnosis: DIABETES TYPE II[SNOMED: 142806352] Diagnosis: HYPOTHYROIDISM[ICD9: 244.9] Tessie Motta MD [facility] CPT- 4: 65887 09/06/2012 ([id number]) 86343 EST. PATIENT, LEVEL IV Diagnosis: DIABETES TYPE II[SNOMED: 822661633] Diagnosis: ESSENTIAL HYPERTENSION[SNOMED: 01109441] Diagnosis: Diarrhea[ICD9: 787.91] Tessie Motta MD [facility] CPT-4: 89574 08/23/2012 ([id number]) 37435 EST. PATIENT, LEVEL III Diagnosis: ESSENTIAL HYPERTENSION[SNOMED: 66743475] Diagnosis: Gastroenteritis[ICD9: 558.9] Rika Motta MD [facility] CPT-4: 74148 08/13/2012 ([id number]) 33422 EST. PATIENT, LEVEL IV Diagnosis: Diarrhea[ICD9: 787.91] Diagnosis: ESSENTIAL HYPERTENSION[SNOMED: 09482696] Diagnosis: DM W/O COMPLICATION TYPE II, UNCONTROLLED[SNOMED: 03559062] Rika Motta MD, [facility] CPT-4: 02094 08/07/2012 ([id number]) 37865 EST. PATIENT, LEVEL III Diagnosis: Acute sinusitis[ICD9: 461.9] Diagnosis: Thrush[ICD9: 112.0] Rika Motta MD, [facility] CPT-4: 86491 07/06/2012 ([id number]) 69542 EST. PATIENT, LEVEL IV Diagnosis: ESSENTIAL HYPERTENSION[SNOMED: 11912889] Diagnosis: DIABETES TYPE II[SNOMED: 754524170] Tessie Motta MD, [facility] CPT-4: 49031 06/07/2012 ([id number]) 97912 EST. PATIENT, LEVEL IV Diagnosis: ESSENTIAL HYPERTENSION[SNOMED: 48346470] Diagnosis: ACUTE SINUSITIS[ICD9: 461.9] Diagnosis: Labial cyst[ICD9: 624.8] Tessie Motta MD, [facility] CPT-4: 96823 05/28/2012 (55913) 14850 EST. PATIENT, LEVEL IV Diagnosis: ESSENTIAL HYPERTENSION[SNOMED: 67372489] Diagnosis: EDEMA[ICD9: 782.3] Tessie Motta MD [facility] CPT-4: 82363 05/17/2012 ([id number]) 65027 EST. PATIENT, LEVEL IV Diagnosis: EDEMA[ICD9: 782.3] Diagnosis: ESSENTIAL HYPERTENSION[SNOMED: 30630806] Diagnosis: Diarrhea[ICD9: 787.91] Diagnosis: ALLERGIC RHINITIS[ICD9: 477.9] Tessie Motta MD, [facility] CPT- 4: 48890 05/02/2012 ([id number]) 10100 EST. PATIENT, LEVEL IV Diagnosis: ACUTE SINUSITIS[ICD9: 461.9] Diagnosis: ESSENTIAL HYPERTENSION[SNOMED: 54946158] Diagnosis: ALLERGIC RHINITIS[ICD9: 477.9] Tessie Motta MD, [facility] CPT- 4: 71877 04/10/2012 (75684) 49272 EST. PATIENT, LEVEL IV Diagnosis: ESSENTIAL HYPERTENSION[SNOMED: 22540364] Diagnosis: Foreign body in foot or toe[ICD9: 917.6] Diagnosis: EDEMA[ICD9: 782.3] Tessie Motta MD [facility] CPT-4: 79451 02/27/2012 ([id number]) 26374 EST. PATIENT, LEVEL IV Diagnosis: CELLULITIS OF FOOT[ICD9: 682.7] Diagnosis: DIABETES TYPE II[SNOMED: 637796530] Diagnosis: EDEMA[ICD9: 782.3] Tessie Motta MD [facility] CPT-4: 72035 02/15/2012 ([id number]) 73891 EST. PATIENT, LEVEL IV Diagnosis: EDEMA[ICD9: 782.3] Diagnosis: ESSENTIAL HYPERTENSION[SNOMED: 25928380] Diagnosis: ACUTE SINUSITIS[ICD9: 461.9] Diagnosis: Dysuria[ICD9: 788.1] Tessie Motta MD [facility] CPT-4: 87071 02/01/2012 ([id number]) 33843 EST. PATIENT, LEVEL IV Diagnosis: DIABETES TYPE II[SNOMED: 247443415] Diagnosis: Diverticulitis[ICD9: 562.11] Tessie Motta MD [facility] CPT- 4: 05284 12/14/2011 ([id number]) 19555 EST. PATIENT, LEVEL IV Diagnosis: Nausea vomiting and diarrhea[ICD9: 787.01] Diagnosis: ESSENTIAL HYPERTENSION[SNOMED: 44749507] Diagnosis: DM W/O COMPLICATION TYPE II, UNCONTROLLED[SNOMED: 67355278] Tessie Motta MD [facility] CPT-4: 38851 11/30/2011 ([id number]) 41876 EST. PATIENT, LEVEL IV Diagnosis: ESSENTIAL HYPERTENSION[SNOMED: 56802398] Diagnosis: DIABETES TYPE II[SNOMED: 423048394] Diagnosis: COUGH[ICD9: 786.2] Tessie Motta MD [facility] CPT-4: 10688 11/17/2011 ([id number]) Patient admitted to the hospital from clinic (NO CHARGE) Diagnosis: Tachycardia[ICD9: 785.0] Diagnosis: Dyspnea[ICD9: 786.09] Diagnosis: Wheezing[ICD9: 786.07] Diagnosis: FALL AGAINST OBJECT[ICD9: E888.1] Diagnosis: ANXIETY STATE[ICD9: 300.00] Diagnosis: ESSENTIAL HYPERTENSION[SNOMED: 26666807] Diagnosis: Chronic depression[ICD9: 311] Diagnosis: Diabetes mellitus type 2, uncontrolled[SNOMED: 58193088] Tessie Motta MD, [facility] CPT-4: 70475H 11/03/2011 ([id number]) 69458 EST. PATIENT, LEVEL IV Diagnosis: DIABETES TYPE II[SNOMED: 226834964] Diagnosis: ANXIETY STATE[ICD9: 300.00] Diagnosis: DEPRESSIVE DISORDER NEC[ICD9: 311] Diagnosis: Ulcer of toe[ICD9: 707.15] Tessie Motta MD, [facility] CPT- 4: 43272 10/24/2011 ([id number]) 93431 EST. PATIENT, LEVEL IV Diagnosis: EDEMA[ICD9: 782.3] Diagnosis: ESSENTIAL HYPERTENSION[SNOMED: 34483214] Diagnosis: ANXIETY STATE[ICD9: 300.00] Tessie Motta MD, [facility] CPT- 4: 11729 09/26/2011 87724 EST. PATIENT, LEVEL IV Diagnosis: EDEMA[ICD9: 782.3] Diagnosis: ESSENTIAL HYPERTENSION[SNOMED: 31595323] Rika Motta MD, [facility] CPT-4: 97591 09/20/2011 ([id number]) 27939 EST. PATIENT, LEVEL IV Diagnosis: ACUTE SINUSITIS[ICD9: 461.9] Diagnosis: Allergic rhinitis[ICD9: 477.9] Diagnosis: Cough[ICD9: 786.2] Tessie Motta MD, [facility] CPT-4: 76784 09/01/2011 ([id number]) 90870 EST. PATIENT, LEVEL IV Diagnosis: Chronic sinusitis[ICD9: 473.9] Diagnosis: Anxiety, generalized[ICD9: 300.02] Tessie Motta MD, [facility] CPT-4: 15237 08/15/2011 91462 EST. PATIENT, LEVEL IV Diagnosis: ACUTE SINUSITIS[ICD9: 461.9] Diagnosis: Tachycardia[ICD9: 785.0] Diagnosis: Anxiety[ICD9: 300.00] Diagnosis: Dehydration[ICD9: 276.51] Diagnosis: Sciatica[ICD9: 724.3] Tessie Motta MD, [facility] CPT-4: 25981 08/09/2011 32858 EST. PATIENT, LEVEL IV Diagnosis: DIABETES TYPE II[SNOMED: 019712604] Diagnosis: Sciatica[ICD9: 724.3] Diagnosis: Yeast infection[ICD9: 112.9] Tessie Motta MD, [facility] CPT- 4: 54509 08/01/2011 ([id number]) 32933 EST. PATIENT, LEVEL IV Diagnosis: DIABETES TYPE II[SNOMED: 672928797] Diagnosis: ACUTE MAXILLARY SINUSITIS[ICD9: 461.0] Diagnosis: Fibromyalgia[ICD9: 729.1] Tessie Motta MD, [facility] CPT-4: 59735 06/20/2011 36898 EST. PATIENT, LEVEL IV Diagnosis: ESSENTIAL HYPERTENSION[SNOMED: 69172211] Diagnosis: DIABETES TYPE II[SNOMED: 384676662] Diagnosis: ACUTE MAXILLARY SINUSITIS[ICD9: 461.0] Tessie Motta MD, [facility] CPT-4: 72683 04/18/2011 Plan of Care Planned Activity Notes [...] Summary Completed 04/27/2018 Appointment: Rika Bello WPtel: [address] [place], [place] [phone] (15 min) Moderate 04/24/2018 Appointment: Nurse Visit [...] and return Monday for removal of IPRO Zslpzia-vujldkbhfh-va changes in medications-recommend counseling-patient refuses Weakness-patient is deconditioned-refuses PT -recommend patient start walking more 04/10/2018 Appointment: Rika Bello WPtel: [phone] [phone] (15 min) Moderate 04/10/2018 Patient Education: Patient Medication Summary Completed 04/10/2018 Appointment: Arlette Skelton WPtel: [phone] [facility] (15 min) Moderate 03/21/2018 Appointment: Rika Bello WPtel: [phone] [phone] [place] (30 min) Complex 03/20/2018 Visit [...] directed 03/12/2018 Appointment: Rika Bello WPtel: [phone] [phone] [place] (15 min) Moderate 03/12/2018 Patient Education: Patient Medication Summary Completed 03/12/2018 Patient Education: Back Pain Completed 03/12/2018 Appointment: Rika Bello WPtel: [phone] [phone] (30 min) Complex 03/08/2018 Appointment: Lab [...] next refill 02/20/2018 Appointment: Rika Bello WPtel: [facility] [phone] (15 min) Moderate 02/20/2018 Patient Education: Patient Medication Summary Completed 02/20/2018 Patient Education: Back Pain Completed 02/20/2018 Patient Education: Patient Medication Summary Completed 02/20/2018 Care Plan: Iron Pending 02/20/2018 Appointment: Rika Bello WPtel: [address] [place], [place] [phone] (30 min) Complex 02/19/2018 Appointment: Rika Bello WPtel: [address] [place], [place] [phone] (15 min) Moderate 02/01/2018 Visit Plan: UA negative -no culture indicated 12/14/2017 Appointment: Lab Draw 12/14/2017 Patient Education: Patient Medication Summary Completed 12/14/2017 Visit Plan: Dysuria-urinary incontinence-culture urine HTN- elevated today-monitor at home -follow up with mobile security architect 11/27/2017 Appointment: Rika Bello WPtel: [facility] [phone] [place] (15 min) Moderate 11/27/2017 Patient [...] Completed 10/27/2017 Care Plan: SCREENINGMAMMOGRAPHYDIGITAL LOINC : 84582-0 Pending 10/27/2017 Appointment: Arlette Skelton WPtel: [phone] [facility] [place] (15 min) Moderate 10/03/2017 Appointment: Arletet Skelton WPtel: [phone] [place] (15 min) Moderate 10/02/2017 Appointment: Rika Bello WPtel: [phone] (30 min) Complex 09/29/2017 Visit Plan: Continuous [...] acutely worsened. 09/27/2017 Appointment: Arlette Skelton WPtel: [facility] (30 min) Complex 09/27/2017 Patient Education: Patient Medication Summary Completed 09/27/2017 Care Plan: CT HEAD/BRAIN W/O DYE LOINC : 70767-1 Pending 09/27/2017 Visit Plan: DM-patient noncompliant with [...] over- medication. 09/15/2017 Appointment: Rika Bello WPtel: [phone] (30 min) Complex 09/15/2017 Patient Education: Patient Medication Summary Completed 09/15/2017 Appointment: Rika Bello WPtel: [phone] [phone] [place] (30 min) Complex 09/12/2017 Appointment: Rika Bello WPtel: [phone] [phone] (30 min) Complex 09/07/2017 Visit Plan: Owq-bagnqfxorr-sr changes Anemia-check cbc today Dental infection-on clindamycin per Dr Bryant-start probiotics Also needs to monitor blood sugars closely 08/18/2017 Appointment: Rika Bello WPtel: [phone] (30 min) Complex 08/18/2017 Patient Education: [...] not resolve 08/03/2017 Appointment: Rika Bello WPtel: [phone] (30 min) Complex 08/03/2017 Patient Education: [...] worsen 07/27/2017 Appointment: Rika Bello [facility]Ptel: [phone] (30 min) [facility] 07/27/2017 Patient Education: Patient Medication Summary [...] medications 06/13/2017 Appointment: [facility]el[phone] [place] (15 min) Moderate 06/13/2017 Patient Education: Patient Medication Summary Completed 06/13/2017 Visit Plan: Dental abscess - will send RX - pt is to keep her appointment with her dentist - pt is to notify clinic if symptoms do not improve, if they worsen, or with any other acute changes, questions, or concerns. 04/21/2017 Appointment: Arlette Skelton WPtel: [phone] (30 min) Complex 04/21/2017 Patient Education: [...] Q HS RESCHEDULE APPT WITH DR YANNA HoFmngacfmn-vamblxfoy-oo for bactroban ointment provided and instructed on use PSL-fevkhgognk-xs change in medications Mildly elevated liver enzymes-discussed with Dr motta-suspect due to gabapentin-will monitor levels Gait instability-again recommend patient use walker as well as PT 04/18/2017 Appointment: Rika Bello WPtel: [phone] [place] (30 min) Complex 04/18/2017 Patient [...] become less controlled. Low potassium- check labs HEG-yuxjcuyger-me changes Afib-check digoxin level with labs Abdominal [...] become less controlled. Low potassium- check labs UYX-igsqhlcogf-zn changes Afib-check digoxin level with labs Abdominal pain-refill levsin for prn use -call if pain uncontrolled 03/27/2017 Appointment: Rika Bello WPtel: [address] [place], [place] [phone] (30 min) Complex 03/27/2017 Patient Education: Patient Medication Summary Completed 03/27/2017 Appointment: Rika Bello WPtel: [address] [place], [place] [phone] (30 min) Complex 03/24/2017 Visit Plan: Hypertension - well controlled - continue with current medications, continue with no added salt diet. Pt has been encouraged to exercise daily. The pt has been advised to call the office if there are any acute concerns about change in blood pressure readings at home. DM-uncontrolled- discussed strict diet and exercise with patient Low qdotnreib-yalfbirs-uzisedni to monitor Abd hdhk-oiekvjvz-zg changes 02/27/2017 Appointment: Rika Bello WPtel: [phone] (30 min) Complex 02/27/2017 Patient Education: [...] this regimen. 02/21/2017 Appointment: Rika Bello WPtel: [phone] (30 min) Complex 02/21/2017 Patient Education: Patient Medication Summary Completed 02/21/2017 Appointment: Rika Bello WPtel: [phone] [phone] (30 min) Complex 02/20/2017 Visit Plan: [...] labs on Monday02/17/2017 Appointment: Rika Bello WPtel: [address] [place], [place] [phone] [place] (30 min) Complex 02/17/2017 Patient Education: Patient Medication Summary Completed 02/17/2017 Visit Plan: COPD-recent hospitalization with pneumonia- symptoms improved-discussed continuous oxygen use at home-appt with Dr Odonnell tomorrow Afib-check digoxin level-patient just finished zpack Diarrhea-continue probiotics-check stool if diarrhea persists DM-bring log to next appt 02/13/2017 Appointment: Rika Bello WPtel: [address] [place], [place] [phone] (30 min) Complex 02/13/2017 Patient Education: Patient Medication Summary Completed 02/13/2017 Patient Education: Hypertension Completed 02/13/2017 Visit Plan: DM-very uncontrolled-refer to Dr Raines for management RIght shoulder and arm pain-fell 5 days ago-xray shoulder and arm Chronic sinusitis-RX for Dr Kim compound gentamicin nasal spray 01/30/2017 Appointment: Rika Bello WPtel: [phone] (30 min) Complex 01/30/2017 Patient Education: Patient Medication Summary Completed 01/30/2017 Care Plan: Referral Order SNOMED-CT : 809020946 Pending 01/30/2017 Visit Plan: Hypertension - well [...] every night DM-check Hgb A1C Hypothyroidism-check level Acheffq-ukdyukhskp-ccf well controlled- increase cymbalta-recommend counseling 01/16/2017 Appointment: Rika Bello WPtel: [phone] (30 min) Complex 01/16/2017 Patient Education: Patient Medication Summary Completed 01/16/2017 Appointment: Rika Bello WPtel: [address] [place], [place] [phone] (30 min) Complex 01/10/2017 Visit Plan: Sinusitis [...] or concerns. 12/13/2016 Appointment: Arlette Skelton WPtel: [address] [place], [place] [phone] (30 min) Complex 12/13/2016 Patient Education: Patient [...] completely heal. 11/11/2016 Appointment: Rika Bello WPtel: [address] [place], [place] [phone] (30 min) Complex 11/11/2016 Patient Education: Patient Medication Summary Completed 11/11/2016 Care Plan: BMI Above normal followup SELF-MGMT EDUC & TRAIN 1 PT Pending 2016 Appointment: Rika Bello WPtel: [phone] (30 min) Complex 11/08/2016 Visit Plan: Shingles-rash scabbed-no further treatment indicated-patient to call if pain uncontrolled N/V-check labs including UA DM- check labs today Thrush-RX for nystatin 10/28/2016 Appointment: Rika Bello WPtel: [phone] (30 min) Complex 10/28/2016 Patient Education: Patient Medication Summary Completed 10/28/2016 Patient Education: Obesity Completed 10/28/2016 Appointment: Rika Bello WPtel: [phone] (30 min) Complex 10/25/2016 Appointment: Lab Draw 10/21/2016 Patient Education: Patient Medication Summary Completed 10/21/2016 Visit Plan: Right knee pain-patient to schedule appt with Dr Allison Garcia-right arm-concerned for shingles-RX for acyclovir provided and instructed on use-call if symptoms do not resolve or if any worse. 10/13/2016 Appointment: Rika Bello WPtel: [phone] (30 min) Complex 10/13/2016 Patient Education: Patient Medication Summary Completed 10/13/2016 Appointment: Rika Bello WPtel: [address] [place], [place] [phone] (30 min) Complex 10/11/2016 Appointment: Rika Bello WPtel: [address] [place], [place] [phone] [facility] - Annual Wellness Visit 10/04/2016 Visit Plan: [...] as directed. 09/23/2016 Appointment: Rika Bello WPtel: [address] [place] [address] (15 min) Moderate 09/23/2016 Patient Education: Patient [...] 09/13/2016 Care Plan: Referral Order SNOMED-CT : 114078218 Pending 09/13/2016 Appointment: Rika Bello WPtel: [address] [place] [address] (30 min) Complex 09/09/2016 Appointment: Rika Bello WPtel: [address] [place] [address] (30 min) Complex 09/08/2016 Visit Plan: Hypertension [...] Anemia-check CBC 08/09/2016 Appointment: Rika Bello WPtel: [address] [place] [address] (30 min) [facility] 08/09/2016 Patient Education: Patient Medication Summary Completed [...] control. Yeast infection -rx for nystatin powder ZUJE-twchyacrd-qcsegi pneumonia -afib-patient is oxygen dependent due to severely compromised pulmonary and cardiac systems-will send orders to [facility] to continue oxygen 07/26/2016 Visit [...] control. Yeast infection -rx for nystatin powder PQLS-tktrxemiu-mvkzzw pneumonia -afib-patient is oxygen dependent due to severely compromised pulmonary and cardiac systems-will send orders to [facility] to continue oxygen 07/26/2016 Visit [...] control. Yeast infection -rx for nystatin powder YQKH-qgxzunths-zwupee pneumonia -afib-patient is oxygen dependent due to severely compromised pulmonary and cardiac systems-will send orders to [facility] to continue oxygen 07/26/2016 Appointment: Rika Bellol: 1015 [phone] [place] (30 min) Complex 07/26/2016 Patient Education: Patient Medication Summary Completed 07/26/2016 Appointment: Rika Bello WPtel: [phone] [phone] [place] (30 min) Complex 07/22/2016 Appointment: Rika Bello WPtel: [phone] [phone] [place] (30 min) Complex 07/18/2016 Appointment: Rika Bello WPtel: [phone] [phone] [place] (30 min) Complex 07/01/2016 Appointment: Lab Draw 06/24/2016 Patient Education: Patient Medication Summary Completed 06/24/2016 Appointment: Rika Bello WPtel: [phone] [phone] (30 min) Complex 2016 Visit Plan: [...] Completed 05/24/2016 Appointment: Rika Bello WPtel: 1015 [phone] (30 min) Complex 05/17/2016 Visit Plan: [...] control. 04/19/2016 Appointment: Rika Bello WPtel: [phone] [phone] (30 min) Complex 04/19/2016 Patient Education: Patient Medication Summary Completed 04/19/2016 Patient Education: Obesity Completed 04/19/2016 Appointment: Rika Bello WPtel: [phone] [phone] [place] (30 min) Complex 04/18/2016 Visit Plan: [...] to allow for greater blood glucose control. ZPP-raxmpqwinj-pn changes in medications at this time. Dysuria-UA negative-needs pelvic exam due to pt c/o vaginal discharge 04/11/2016 Appointment: Rika Bello WPtel: [phone] [place] (30 min) Complex 04/11/2016 Patient Education: Patient Medication Summary Completed 04/11/2016 Patient Education: Obesity Completed 04/11/2016 Appointment: Rika Bello WPtel: [phone] (30 min) Complex 04/08/2016 Visit Plan: [...] peripheral edema. 03/11/2016 Appointment: Rika Bello WPtel: [address] [place], [place] [phone] (30 min) Complex 03/11/2016 Patient Education: Patient [...] use 02/26/2016 Appointment: Rika Bello WPtel: [phone] [phone] (30 min) Complex 02/26/2016 Patient Education: Patient Medication Summary Completed 02/26/2016 Appointment: Rika Bello WPtel: [phone] (30 min) Complex 02/25/2016 Appointment: Rika Bello WPtel: [phone] (30 min) Complex 02/23/2016 Appointment: Lab Draw [...] Afib-managed by Dr Dyer-appt to see Dr Emert for ablation Sleep apnea-needs new cpap due to mold-will write for new machine DM-not checking blood sugars-new glucometer provided COPD-on oxygen-needs new nebulizer and supplies due to mold 02/02/2016 Appointment: Rika Bello WPtel: [phone] (30 min) Complex 02/02/2016 Patient Education: Patient Medication Summary Completed 02/02/2016 Appointment: Tessie Motta [facility]Ptel: [phone] (15 min) Moderate 01/21/2016 Appointment: Rika Bello WPtel: [phone] (30 min) Complex 01/14/2016 Visit Plan: Hypertension [...] Patient Medication Summary Completed 12/17/2015 Visit Plan: Hjsjtoh-zxxofhdtf-nzma head injury on 12/05-did not go to ER-patient sent for STAT CT scan of head-schedule appt with Dr Dyer Adrenal insufficiency-patient suddenly stopped prednisone-instructed patient to restart and taper prednisone as directed Rib csjt-fzznh-ghchlt fall-xray ribs 12/08/2015 Appointment: Rika Bello WPtel: [phone] [place] (15 min) Moderate 12/08/2015 Appointment: Rika Bello WPtel: [phone] (30 min) Complex 12/08/2015 Patient Education: Patient Medication Summary Completed 12/08/2015 Care Plan: COMPLETE CBC AUTOMATED LOINC : 08315-8 Pending 12/08/2015 Visit Plan: Hypertension - well [...] 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 09/29/2015 Appointment: Rika Bello WPtel: [address] [place] [phone] [facility] - Welcome to Medicare visit 09/29/2015 Patient Education: Patient Medication Summary Completed 09/29/2015 Patient Education: Obesity Completed 09/29/2015 Care Plan: Referral Order SNOMED-CT : [id number] Pending 09/29/2015 Care Plan: BMI Above normal [...] Complex 05/05/2015 Appointment: Rika Bello WPtel: [phone] [phone] (30 min) Complex 04/27/2015 Visit Plan: Cellulitis [...] Hypertension Completed 03/03/2015 Appointment: Rika Bello WPtel: [phone] (30 min) Complex 02/24/2015 Appointment: (30 min) Complex 01/29/2015 Appointment: Tessie Motta WPtel: [phone] (15 min) Moderate 01/22/2015 Visit Plan: Blister of right lower leg-fluids removed with #27 gauze needle and compression dressing applied-refer to wound care for evaluation and management-patient is at high risk of developing large ulcer due to diabetes, noncompliance and poor hygiene. Rash right leg-start oral abx and bactroban as directed Jqxcu-gdyggqidixzi-utt markie wraps, elevate leg, and again instructed [...] out. 01/01/2015 Appointment: Tessie Motta WPtel: [phone] (15 min) Moderate 01/01/2015 Patient [...] Care Plan: COMPLETE CBC AUTOMATED LOINC : 40038-1 Ordered 11/04/2014 Care Plan: URINALYSIS NONAUTO W/O SCOPE LOINC : 30333-3 Ordered 11/04/2014 Appointment: Follow up 10/07/2014 Visit Plan: Edema - pt has been advised to elevate legs to prevent dependent edema, compression has been recommended to help to naturally decrease peripheral edema. Diuretic use has been discussed and pt has been instructed in appropriate use of such medication as necessary to further attempt to reduce peripheral edema. Eqowcnjpvu-logeqrrb-hv change in treatment- continue compression hose-decrease salt/sodium in diet-call if symptoms worsen or do not resolve Fpufnnvrq-rfzphqs-awwhuonp nasonex to twice daily as directed 09/08/2014 [...] worsen. 06/12/2014 Appointment: Rika Bello WPtel: [phone] Follow up 06/12/2014 Patient Education: Patient Medication Summary Completed 06/12/2014 Patient Education: .Amazing charts Exercise for Sciatica Completed 06/12/2014 Care Plan: COMPLETE CBC AUTOMATED LOINC : 82684-4 Ordered 06/12/2014 Visit Plan: Cellulitis - continue [...] Completed 05/26/2014 Appointment: Tessie Motta WPtel: [phone] Lab Draw 04/21/2014 Patient Education: [...] at home. 02/13/2014 Appointment: Tessie Motta WPtel: [facility] Follow up 02/13/2014 Patient Education: [...] Appointment: Tessie Motta WPtel: [phone] [facility] Follow up 01/27/2014 Patient Education: Patient Medication Summary Completed 01/27/2014 Appointment: Rika Bello WPtel: [phone] [phone] Follow up 01/02/2014 Visit Plan: Open wound of ftb-gthhhjar-bwgngnwv with dressing changes as directed-call for increase [...] Completed 12/26/2013 Appointment: Tessie Motta WPtel: [phone] [facility] Follow up 12/24/2013 Visit Plan: Open wound of right leg-debrided today in the office-instructed on wound care-follow up as directed. Call with any questions, concerns, or worsening symptoms. Culture of wound today in the office-RX for abx sent to patient's pharmacy and instructed on use. Patient verbalized understanding of plan. 12/12/2013 Appointment: Rika Bello WPtel: [phone] Other 12/12/2013 Patient Education: Patient Medication Summary Completed 12/12/2013 Appointment: Tessie Motta WPtel: [facility] Follow up 11/20/2013 Visit Plan: negative ua 11/18/2013 Appointment: Tessie Motta WPtel: [facility] Lab Draw 11/18/2013 Patient Education: Patient [...] Completed 11/14/2013 Visit Plan: Open wound right klt-ddqpyg-almb if opens up Edema - pt has been advised to elevate legs to prevent dependent edema, compression has been recommended to help to naturally decrease peripheral edema. Diuretic use has been discussed and pt has been instructed in appropriate use of such medication as necessary to further attempt to reduce peripheral edema. 10/21/2013 Appointment: Rika Bello WPtel: [phone] Follow up 10/21/2013 Patient Education: Patient Medication Summary Completed 10/21/2013 Appointment: Rika Bello WPtel: [phone] Follow up 10/17/2013 Appointment: Tessie Motta WPtel: [address] [place], [place] [phone] Follow up 10/10/2013 Visit Plan: Hypertension - [...] for pain. 10/03/2013 Appointment: Rika Bello WPtel: [phone] Follow up 10/03/2013 Patient Education: Patient [...] of plan. 09/23/2013 Appointment: Tessie Motta WPtel: [address] [place] [address] [place] Nurse Visit 09/23/2013 Patient Education: Patient [...] 2 WEEKS. 09/20/2013 Appointment: Rika Bello WPtel: [address] [place] [address] Follow up 09/20/2013 Patient Education: Patient Medication Summary Completed 09/20/2013 Patient Education: Hypertension Completed 09/20/2013 Appointment: Tessie Motta WPtel: [address] [place], [place] [phone] Follow up 09/16/2013 Visit Plan: Edema - [...] verbalized understanding. 09/10/2013 Appointment: Rika Bello WPtel: [address] [place], [place] [phone] [place] Other 09/10/2013 Patient Education: Patient Medication Summary Completed 09/10/2013 Appointment: Rika Bello WPtel: [address] [place] [address] Follow up 09/02/2013 Visit Plan: Diabetes Mellitus [...] peripheral edema. 08/19/2013 Appointment: Rika Bello WPtel: [address] [place] [phone] [facility] 08/19/2013 Patient Education: Patient Medication Summary Completed [...] as scheduled 08/01/2013 Appointment: Rika Bello WPtel: [address] [place] [address] Follow up 08/01/2013 Patient Education: Patient Medication Summary Completed 08/01/2013 Appointment: Rika Bello WPtel: [address] [place], [place] [phone] [place] [address] Follow up 07/25/2013 Appointment: Tessie Motta WPtel: [address] [place], [place] [phone] Follow up 07/25/2013 Visit Plan: Bister of foot-dressing changes discussed with patient and instructed her to keep her foot clean and dry-STOP WEARING FLIP FLOPS as they are causing friction over blistered area. Keep follow up appointment as scheduled. Call for redness, drainage or other s/s of infection. 07/19/2013 Appointment: Rika Bello WPtel: [phone] [place] [address] Other 07/19/2013 Patient Education: Patient Medication Summary [...] attempt to reduce peripheral edema. 07/15/2013 Appointment: Ace Rika WPtel: [phone] Other 07/15/2013 Patient Education: Patient Medication Summary Completed 07/15/2013 Patient Education: Hypertension Completed 07/15/2013 Appointment: Ace Rika WPtel: [address] [place], [place] [phone] Follow up 07/01/2013 Appointment: Rika Bello WPtel: [address] [place], [place] [phone] Lab Draw 06/28/2013 Patient Education: Patient Medication [...] 900mg tid. 06/27/2013 Appointment: Tessie Motta WPtel: [facility] Other 06/27/2013 Patient Education: Patient Medication Summary Completed 06/27/2013 Appointment: Tessie Motta WPtel: [facility] Other 06/24/2013 Visit Plan: Diabetes Mellitus [...] THE AFTERNOON. 06/10/2013 Appointment: Tessie Motta WPtel: [address] [place], [place] [phone] Follow up 06/10/2013 Patient Education: Patient Medication Summary Completed 06/10/2013 Appointment: Tessie Motta WPtel: [address] [place], [place] [phone] Follow up 06/06/2013 Visit Plan: Sinusitis - [...] acutely worsen. 05/07/2013 Appointment: Tessie Motta WPtel: [facility] Follow up 05/07/2013 Patient Education: Patient Medication Summary Completed 05/07/2013 Appointment: Kalia Tessie WPtel: [facility] Follow up 04/30/2013 Visit Plan: Edema [...] acute changes. 04/16/2013 Appointment: Tessie Motta WPtel: [address] [place], [place] [phone] Follow up 04/16/2013 Patient Education: Patient Medication Summary Completed 04/16/2013 Appointment: Tessie Motta WPtel: [facility] Follow up 04/04/2013 Visit Plan: Lumbago-continue [...] peripheral edema. 03/21/2013 Appointment: Rika Bello WPtel: [facility] [place] [address] Follow up 03/21/2013 Patient Education: Patient Medication Summary Completed 03/21/2013 Appointment: Tessie Motta WPtel: [address] [place], [place] [phone] Follow up 03/20/2013 Appointment: Tessie Motta WPtel: [address] [place] [address] Follow up 03/05/2013 Visit Plan: Edema-significantly improved- [...] less controlled. 02/12/2013 Appointment: Rika Bello WPtel: [phone] [place] [address] follow up 02/12/2013 Patient Education: Patient Medication [...] Dyspnea - recommended pt to see new director of culture when he gets to [facility] for further evaluation and work-up. 02/04/2013 Appointment: Tessie Motta WPtel: [facility] [place] Follow up 02/04/2013 Patient Education: [...] not improve. 01/17/2013 Appointment: Rika Bello WPtel: [facility] [phone] Follow up 01/17/2013 Patient Education: Patient Medication Summary Completed 01/17/2013 Patient Education: Hypertension Completed 01/17/2013 Appointment: Tessie Motta WPtel: [facility] [place] Follow up 01/16/2013 Appointment: Tessie Motta WPtel: [address] [place], [place] [address] Follow up 01/10/2013 Appointment: Rika Bello WPtel: [address] [place], [place] [phone] [place] Lab Draw 01/01/2013 Patient Education: Patient [...] Hypothyroidism-check labs 12/31/2012 Appointment: Rika Bello WPtel: [facility] [phone] [place] Follow up 12/31/2012 Appointment: Rika Bello WPtel: [address] [place], [place] [phone] [place] [address] Sick 12/31/2012 Patient Education: Patient Medication Summary [...] Check labs. 12/20/2012 Appointment: Rika Bello WPtel: [facility] [phone] Sick 12/20/2012 Patient Education: Patient Medication Summary Completed 12/20/2012 Patient Education: Hypertension Completed 12/20/2012 Appointment: Tessie Motta WPtel: [phone] [facility] Lab Draw 11/05/2012 Patient Education: Patient Medication Summary Completed 11/05/2012 Visit Plan: Bronchitis - acute case of bronchitis identified. Pt has been given antibiotics, breathing treatments as appropriate, and pt has been instructed to call if symptoms are not improved, or if symptoms acutely worsen. 10/29/2012 Appointment: Tessie Motta WPtel: [phone] [facility] [facility] 10/29/2012 Patient Education: Patient Medication Summary Completed 10/29/2012 Visit Plan: Joint Injection-left SI joint - Pt was given post - injection instructions. The pt has been advised to use antiinflammatories post injection today, ice to the injected site, call if redness, warmth, or increased pain occurs at the site of injection. 09/21/2012 Appointment: Rika Bello WPtel: [phone] [phone] Follow up 09/21/2012 Patient Education: Patient [...] of control. 09/06/2012 Appointment: Tessie Motta WPtel: [phone] [facility] Follow up 09/06/2012 Patient Education: Patient Medication [...] readings are starting to become less controlled. Aklnkjrv-gglgiyln-wanaybnj probiotic-continue to hold metformin and repeat labs before appt in 2 weeks. Call for abd pain, worsening diarrhea, or other concerns. 08/23/2012 Appointment: Tessie Motta WPtel: [phone] Follow up 08/23/2012 Patient Education: [...] PLAN. 08/13/2012 Appointment: Rika [facility]ello [facility]Ptel: [phone] Follow up 08/13/2012 Patient Education: Patient [...] acute concerns. 08/07/2012 Appointment: Rika Bello WPtel: [facility] [place] [address] Other 08/07/2012 Patient Education: Patient Medication Summary Completed 08/07/2012 Patient Education: Hypertension Completed 08/07/2012 Visit Plan: UA-sent for culture 07/19/2012 Appointment: Rika Bello WPtel: [facility] [place] [address] Lab Draw 07/19/2012 Patient Education: Patient Medication [...] as directed 07/06/2012 Appointment: Rika Bello WPtel: [facility] [phone] [facility] 07/06/2012 Patient Education: Patient Medication Summary [...] Appointment: Tessie Motta WPtel: [phone] [facility] Follow up 06/07/2012 Appointment: Tessie Motta WPtel: [phone] [facility] [place] Follow up 06/07/2012 Patient Education: [...] days. 05/28/2012 Appointment: Rika Bello WPtel: [phone] Follow up 05/28/2012 Patient Education: Patient [...] edema. 05/17/2012 Appointment: Rika Bello WPtel: [phone] [phone] [facility] Follow UP 05/17/2012 [...] office 05/02/2012 Appointment: Tessie Motta WPtel: [phone] [facility] [place] Follow up 05/02/2012 Patient Education: Patient Medication Summary Completed 05/02/2012 Patient Education: Hypertension Completed 05/02/2012 Appointment: Tessie Motta WPtel: [phone] Follow up 04/25/2012 Visit Plan: Sinusitis - [...] concerns. 04/10/2012 Appointment: Rika Bello WPtel: [phone] Follow up 04/10/2012 Patient Education: Patient [...] I&D on Monday02/27/2012 Appointment: Rika Bello WPtel: [phone] [place], [place] [id number] [place] [address] Follow up 02/27/2012 Patient Education: Patient Medication [...] thighs. 02/15/2012 Appointment: Rika Bello WPtel: [phone] [phone] Follow up 02/15/2012 Patient Education: Patient [...] to thighs. [facility]ray at the hospital as [...] of urine. 02/01/2012 Appointment: Rika Bello WPtel: [address] [place], [place] [phone] [place] [address] Other 02/01/2012 Patient Education: Patient Medication Summary [...] left buttocks 12/14/2011 Appointment: Tessie Motta WPtel: [facility] [place] [facility] Other 12/14/2011 Patient Education: Patient Medication Summary Completed 12/14/2011 Appointment: Tessie Motta WPtel: [address] [place] [address] Follow up 12/08/2011 Visit Plan: N/V/D - [...] less controlled. 11/30/2011 Appointment: Rika Bello WPtel: [phone] [phone] Other 11/30/2011 Patient Education: Patient Medication [...] back pain. 11/17/2011 Appointment: Tessie Motta WPtel: [phone] [place] Other 11/17/2011 Patient Education: Patient Medication [...] - uncontrolled - will consult her primary mobile security architect for assistance with control her her heart rate. Ulcer of toe - continue with topical antibiotics as previously directed, return to clinic as previously directed, call for acute change in symptoms, worsening redness, warmth, discharge. 11/03/2011 Appointment: Tessie Motta WPtel: [phone] [facility] Other 11/03/2011 Patient Education: Patient Medication Summary [...] warmth, discharge. 10/24/2011 Appointment: Tessie Motta WPtel: [phone] Other 10/24/2011 Patient Education: Patient Medication Summary [...] with lymphoma. 09/26/2011 Appointment: Rika Bello WPtel: [facility] [place] [address] [place] Other 09/26/2011 Patient Education: Patient Medication [...] Hypertension Completed 2011 Appointment: Tessie Motta WPtel: [phone] [facility] [place] Other 09/05/2011 Visit Plan: Sinusitis - Pt [...] the medication. 09/01/2011 Appointment: Tessie Motta WPtel: [phone] Other 09/01/2011 Patient Education: Patient Medication Summary Completed 09/01/2011 Visit Plan: Sinusitis - continue with ciprofloxacin and start on corcidin HBP. Anxiety - start the xanax 0.5mg 1/2 pill twice daily. 08/15/2011 Appointment: Tessie Motta WPtel: [facility] [place] [address] [place] Other 08/15/2011 Appointment: Tessie Motta WPtel: [facility] [place] Other 08/15/2011 Patient Education: Patient Medication [...] the hospital. 08/09/2011 Appointment: Rika Bello WPtel: [address] Other 08/09/2011 Patient Education: Patient Medication Summary [...] not resolve 08/01/2011 Appointment: Rika Bello WPtel: [address] [place] [address] Other 08/01/2011 Patient Education: Patient Medication Summary Completed 08/01/2011 Appointment: Rika Bello WPtel: [address] [place] [address] Other 07/26/2011 Appointment: Tessie Motta WPtel: [address] [place] [address] Other 07/18/2011 Visit Plan: Diabetes Mellitus - [...] management sparingly. 06/20/2011 Appointment: Tessie Motta WPtel: [address] [place], [place] [id number] Other 06/20/2011 Patient Education: Patient Medication Summary [...] 1 month. 04/18/2011 Appointment: Tessie Motta WPtel: [address] [place], [place] [phone] Other 04/18/2011 Patient Education: Patient Medication Summary Completed 04/18/2011 Patient Education: High Blood Pressure: Essential Hypertension Completed 2010 Appointment: Tessie Motta WPtel: [address] [place], [place] [phone] Other 04/12/2011 Appointment: Tessie Motta WPtel: [address] [place], [place] [id number] Other 02/16/2011 Referral: Matt Pavonel:[phone] [facility] [place] Referral Initiated Referral: Yareli Raines Referral [...] change in symptoms, worsening redness, warmth, discharge. Ypwdmtxv-dbipetyrkkiz-mqpqc labs today-patient has been given orders multiple [...] leg-start oral abx and bactroban as directed Qrxvi-magmjtdiacfx-ghb markie wraps, elevate leg, and again instructed [...] drainage or other s/s of infection. . Gau-ifhguqfinx-hv changes Anemia-check cbc today Dental infection-on clindamycin [...] change in blood pressure readings at home. VB-qwjkihqwiltl-xzabkulpo strict diet and exercise with patient Low ilsdugwap-mvhdoyvy-xyrdgvrc to monitor Abd fday-sxaalpua-zp changes FOR CHOLESTEROL - THE NEW DOSE [...] readings are starting to become less controlled. Frzhxxtb-qdtmdjgf-wrnfsuxv probiotic-continue to hold metformin and repeat labs [...] HTN-elevated today-monitor at home -follow up with mobile security architect . Open wound of rzg-vboluiqj-qcpqkhii with dressing changes as directed-call for increase [...] symptom management sparingly. . Open wound right awm-nqnujf-lftn if opens up Edema - pt has been advised to elevate legs to prevent dependent edema, compression has been recommended to help to naturally decrease peripheral edema. Diuretic use has been discussed and pt has been instructed in appropriate use of such medication as necessary to further attempt to reduce peripheral edema. . Wugdobm-tgczftjgo-vulc head injury on 12/05-did not go to ER-patient sent for STAT CT scan of head-schedule appt with Dr Dyer Adrenal insufficiency-patient suddenly stopped prednisone-instructed patient to restart and taper prednisone as directed Rib hcla-qmawg-strzwq fall-xray ribs START CHECKING BLOOD SUGARS!!!! BRING [...] to allow for greater blood glucose control. OHK-dfcytcwlhe-ec changes in medications at this time. Dysuria-UA [...] - uncontrolled - will consult her primary mobile security architect for assistance with control her her heart [...] with results.Patient and verbalized understanding of plan. LIJ-lwkucnnhmrw-rqtta labs-monitor blood pressure and heart rate closely- [...] a prescription for cipro and flagyl to [facility]. Start it today. . Sinusitis - Pt [...] for diflucan-call if symptoms do not resolve [place] balm over the counter for the knee. [...] to further attempt to reduce peripheral edema. Jqubhrmezh-nxxtkgvv-ns change in treatment-continue compression hose-decrease salt/sodium in diet-call if symptoms worsen or do not resolve Cflkekjlp-cjdclri-wprunogh nasonex to twice daily as directed pt [...] pt was given a script for a custodial prednisone taper - pt has not started [...] Q HS RESCHEDULE APPT WITH DR YANNA HoAjcamrkzq-unqflyopq-lp for bactroban ointment provided and instructed on use NBD-xephbnsluw-nb change in medications Mildly elevated liver enzymes-discussed [...] Dyspnea - recommended pt to see new director of culture when he gets to [facility] for further evaluation and work-up. refer [...] [facility]TS of LASIX and 2 [...] toes to thighs. RX sent to patient's [facility]. Chest xray at the hospital [...] control. Yeast infection -rx for nystatin powder YRQQ-hfuktfzgb-fgdqnn ppzdwukls-ygbc-ueumzkc is oxygen dependent due to severely compromised pulmonary and cardiac systems-will send orders to [facility] to continue oxygen . Diabetes [...] control. Yeast infection -rx for nystatin powder LXMF-arsassvmj-hotvyi adipuqsml-vwvk-wfnzgbb is oxygen dependent due to severely compromised pulmonary and cardiac systems-will send orders to [facility] to continue oxygen . Diabetes [...] control. Yeast infection -rx for nystatin powder NCUG-cezudlcbc-ogiqyp rwcfalhzh-qtyn-ovwxdrj is oxygen dependent due to severely compromised pulmonary and cardiac systems-will send orders to [facility] to continue oxygen . Diabetes [...] and return Monday for removal of IPRO Onksoal-ozlhvqesdf-uw changes in medications-recommend counseling-patient refuses Weakness-patient is [...] your appt with her -she is a review specialist . Diabetes Mellitus - ucontrolled- I [...] to become less controlled. Low potassium-check labs QVR-hwvvnlrtpz-tp changes Afib-check digoxin level with labs Abdominal pain-refill levsin for prn use -call if pain uncontrolled DR Yareli Raines-you need to reschedule your appt with her -she is a review specialist . Diabetes Mellitus - ucontrolled- I [...] to become less controlled. Low potassium-check labs XIO-yblysisvlv-tm changes Afib-check digoxin level with labs Abdominal [...] PAIN MANAGEMENT FOR INJECTIONS STOP BY [employer] FOR NEW CPAP SUPPLIES . Hypertension - [...] every night DM-check Hgb A1C Hypothyroidism-check level Jjodcsj-tdipufnfdo-uwv well controlled-increase cymbalta-recommend counseling . Diabetes Mellitus [...] she needs to...RESCHEDULE APPT WITH DR RAINES IUQ-mpypocnqcd-ww change in medications CPAP NEBULIZER CHECK UA [...]
--- OUTSIDE RECORDS SUMMARY | 2018-06-04 17:04 | XMS REPORT | CCD ---
Author Author [facility] Organization [facility] Address [address] [place] [address] Phone Care Team Providers Care Corporate Development Officer Name Role Phone Tessie Motta PP Unavailable CCM Unavailable Summary Purpose Interface Exchange Insurance Providers Payer name Policy type / Coverage type Covered alliance party ID Effective Begin Date Effective End Date WPS Medicare Part B Medicare Part B [id number] 2015 Unknown [facility] Medicare Part B [id number] Unknown Family history Son Diagnosis Age At [...] College Graduate 08/21/[address]: 827047396 Never smoker 02/11/[address]: 332135275 Never drinks alcohol 02/11/2011 Has the patient ever used illegal drugs? Unknown Has never used illegal drugs 02/11/2011 Allergies, Adverse Reactions, Alerts Substance Reaction Codes Entered Date Inactivated Date Status CODEINE RxNorm: 2670 02/11/2011 No Inactive Date Active * NO KNOWN FOOD ALLERGIES Unknown 02/01/2012 No Inactive Date Active cefdinir RxNorm: 44869 08/07/2012 No Inactive Date Active PENICILLINS Unknown 02/11/2011 No Inactive Date Active SULFA (SULFONAMIDES) Unknown 02/11/2011 No Inactive Date Active Tetanus Unknown 02/11/2011 No Inactive Date Active Past Medical History Illness Codes Condition Status Onset Date Resolved Date Essential (primary) hypertension ICD-9: 401.1 ICD-10: I10 Active 06/13/2017 Unknown Generalized anxiety disorder ICD-9: 300.02 ICD-10: F41.1 Active 05/23/2016 Unknown Type 2 diabetes mellitus with hyperglycemia ICD-9: 250.00 ICD-10: E11.65 Active 05/23/2016 Unknown Weakness ICD-9: 780.79 ICD-10: [...] ICD-9: 280.0 ICD-10: D50.0 Active 08/09/2016 Unknown Chronic maxillary sinusitis ICD-9: 473.0 ICD-10: J32.0 Active 01/30/2017 Unknown Hordeolum externum left upper eyelid ICD-9: [...] ICD-9: 466.0 ICD-10: J20.8 Active 11/09/2015 Unknown Cough ICD-9: 786.2 ICD-10: R05 Active 11/09/2015 Unknown Other acute sinusitis ICD-9: [...] disorder ICD-9: 300.02 ICD-10: F41.1 05/23/2016 Active Type 2 diabetes mellitus with hyperglycemia ICD-9: 250.00 ICD-10: E11.65 05/23/2016 Active Weakness ICD-9: 780.79 ICD-10: R53.1 [...] (chronic) ICD-9: 280.0 ICD-10: D50.0 08/09/2016 Active Chronic maxillary sinusitis ICD-9: 473.0 ICD-10: J32.0 01/30/2017 Active Hordeolum externum left upper eyelid ICD-9: [...] organisms ICD-9: 466.0 ICD-10: J20.8 11/09/2015 Active Cough ICD-9: 786.2 ICD-10: R05 11/09/2015 Active Other acute sinusitis ICD-9: 461.9 [...] Start Date Stop Date Status Fill Instructions Lasix 40 mg tablet RxNorm: 247678 TAKE 1 TABLET BY MOUTH TWICE DAILY 04/19/2018 No Stop Date Active Vitamin D2 50,000 unit capsule RxNorm: 2949260 1 Capsule(s) PO QW 04/17/2018 06/15/2018 Active Tessalon Perles 100 mg capsule RxNorm: 187297 Capsule(s) Capsule(s) 2 Capsule(s) PO TID as needed 04/17/2018 No Stop Date Active Xanax 0.5 mg tablet RxNorm: 531237 1 Tablet(s) BID as needed 04/09/2018 05/08/2018 Active Percocet 10 mg-325 mg tablet RxNorm: 5559701 1-2 Tablet(s) PO Q6 PRN 04/05/2018 04/19/2018 Inactive colestipol 1 gram tablet RxNorm: 6720956 TAKE ONE TABLET BY MOUTH TWICE DAILY 03/30/2018 No Stop Date Active nystatin 100,000 unit/mL oral suspension RxNorm: 361027 Unit(s) 5 Milliliter(s) PO QID swish and swallow 03/21/20182017 Inactive Tessalon Perles 100 mg capsule RxNorm: 716797 Capsule(s) Capsule(s) 2 Capsule(s) PO TID as needed 03/21/2018 04/16/2018 Inactive Xanax 0.5 mg tablet RxNorm: 182615 Tablet(s) BID as needed 04/09/2018 Inactive Slow Fe 47.5 mg iron tablet,extended release RxNorm: 1 Tablet(s) PO every other day 03/12/2018 04/10/2018 Inactive Percocet 10 mg-325 mg tablet RxNorm: 3357346 1-2 Tablet(s) PO Q6 PRN 03/12/2018 03/26/2018 Inactive Slow Fe 47.5 mg iron tablet,extended release RxNorm: 1 Tablet(s) PO 3 x week 02/28/2018 03/11/2018 Inactive promethazine 25 mg tablet RxNorm: 406294 Tablet(s) 1 Tablet(s) PO Q6 PRN TAKE NEEDED ONLY!!! 02/21/2018 No Stop Date Active gabapentin 600 mg tablet RxNorm: 249662 Tablet(s) TAKE ONE & ONE-HALF TABLETS BY MOUTH THREE TIMES DAILY 02/20/20182018 Active Cymbalta 60 mg capsule,delayed release RxNorm: 299489 1 Capsule(s) PO daily take with 30mg tablet 02/20/2018 08/18/2018 Active Cymbalta 30 mg capsule,delayed release RxNorm: 897965 Capsule(s) TAKE ONE CAPSULE BY MOUTH ONCE DAILY - TAKE WITH THE 60 MG DOSE FOR A TOTAL OF 90 MG 02/20/2018 08/18/2018 Active Vitamin D2 50,000 unit capsule RxNorm: 9808411 1 Capsule(s) PO QW 02/20/2018 02/19/2018 Inactive Vitamin D2 50,000 unit capsule RxNorm: 7454456 1 Capsule(s) PO QW 02/20/2018 04/16/2018 Inactive mupirocin 2 % topical ointment RxNorm: 678647 APPLY TO SORE IN BELLY BUTTON TWICE DAILY 02/15/2018 No Stop Date Active Percocet 10 mg-325 mg tablet RxNorm: 2560460 1-2 Tablet(s) PO Q6 PRN 02/14/2018 02/28/2018 Inactive Touphylliso SoloStar U-300 Insulin 300 unit/mL (1.5 mL) subcutaneous pen RxNorm: 9689035 40 Unit(s) SQ BID per dr raines 02/07/2018 03/08/2018 Inactive nystatin 100,000 unit/mL oral suspension RxNorm: 777831 5 Milliliter(s) PO QID swish and swallow 02/02/2018 02/11/2018 Inactive mupirocin 2 % topical ointment RxNorm: 379512 1 Application TOP BID 01/30/2018 02/08/2018 Inactive Tessalon Perles 100 mg capsule RxNorm: 686425 Capsule(s) 2 Capsule(s) PO TID as needed 01/23/2018 03/20/2018 Inactive Xanax 0.5 mg tablet RxNorm: 556053 Tablet(s) TAKE ONE TABLET BY MOUTH THREE TIMES DAILY NEEDED 01/17/20182017 Inactive ropinirole 1 mg tablet RxNorm: 688183 1 Tablet(s) PO BID 201705/10/2018 Active digoxin 125 mcg tablet RxNorm: 619159 1 Tablet(s) PO daily 05/09/2018 Active Percocet 10 mg-325 mg tablet RxNorm: 6386419 1-2 Tablet(s) PO Q6 PRN 01/04/2018 01/18/2018 Inactive Percocet 10 mg-325 mg tablet RxNorm: 8991147 1-2 Tablet(s) PO Q6 PRN 01/02/2018 01/03/2018 Inactive promethazine 25 mg tablet RxNorm: 118192 Tablet(s) 1 Tablet(s) PO Q6 PRN TAKE NEEDED ONLY!!! 01/02/2018 02/20/2018 Inactive pantoprazole 40 mg tablet,delayed release RxNorm: 935489 TAKE 1 TABLET BY MOUTH ONCE DAILY 12/25/2017 No Stop Date Active mupirocin 2 % topical ointment RxNorm: 203895 1 Application TOP BID 12/22/2017 12/31/2017 Inactive fluconazole 150 mg tablet RxNorm: 923120 1 Tablet(s) PO every other day x 3 doses 12/14/2017 12/23/2017 Inactive Percocet 10 mg-325 mg tablet RxNorm: 5381329 1-2 Tablet(s) PO Q6 PRN 12/13/2017 12/27/2017 Inactive hyoscyamine 0.125 mg sublingual tablet RxNorm: 1498776 Tablet(s) 1 Tablet(s) SL TID as needed 12/13/2017 04/11/2018 Inactive nystatin 100,000 unit/gram topical powder RxNorm: 610051 APPLY POWDER TOPICALLY 4 TIMES DAILY 12/11/2017 No Stop Date Active Xanax 0.5 mg tablet RxNorm: 797626 Tablet(s) TAKE ONE TABLET BY MOUTH THREE TIMES DAILY NEEDED 12/06/20172017 Inactive nitrofurantoin 50 mg capsule RxNorm: 093284 1 Capsule(s) PO BID 12/01/2017 11/30/2017 Inactive take probiotic BID x 7 days nitrofurantoin 50 mg capsule RxNorm: 637289 1 Capsule(s) PO BID 12/01/2017 12/07/2017 Inactive take probiotic BID x 7 days mupirocin 2 % topical ointment RxNorm: 208896 1 Application TOP BID 11/27/2017 12/06/2017 Inactive Tessalon Perles 100 mg capsule RxNorm: 521020 Capsule(s) 2 Capsule(s) PO TID as needed 11/21/2017 01/22/2018 Inactive nystatin 100,000 unit/mL oral suspension RxNorm: 041217 5 Milliliter(s) PO QID swish and swallow 11/17/2017 11/26/2017 Inactive nystatin 100,000 unit/mL oral suspension RxNorm: 378286 5 Milliliter(s) PO QID swish and swallow 11/17/2017 11/16/2017 Inactive Toprol XL 100 mg tablet,extended release RxNorm: 059659 TAKE ONE TABLET BY MOUTH TWICE DAILY 11/15/2017 No Stop Date Active ropinirole 1 mg tablet RxNorm: 680576 Tablet(s) BID 11/14/2017 01/10/2018 Inactive Diflucan 150 mg tablet RxNorm: 817938 Tablet(s) every other day 1 Tablet(s) PO every other day 11/14/2017 11/16/2017 Inactive Percocet 10 mg-325 mg tablet RxNorm: 5692479 1-2 Tablet(s) PO Q6 PRN 11/09/2017 11/23/2017 Inactive Flonase Allergy Relief 50 mcg/actuation nasal spray, suspension RxNorm: 3618919 [address] [place] NASAL daily 11/06/20172017 Inactive cyclobenzaprine 10 mg tablet RxNorm: 694726 Tablet(s) TABLET(S) 1 TABLET(S) PO NEEDED TAKE 1 TABLET BY MOUTH EVERY 8 HOURS NEEDED 2017 No Stop Date Active Cymbalta 30 mg capsule,delayed release RxNorm: 299866 TAKE ONE CAPSULE BY MOUTH ONCE DAILY - TAKE WITH THE 60 MG DOSE FOR A TOTAL OF 90 MG 02/19/2018 Inactive Lantus Solostar U-100 Insulin 100 unit/mL (3 mL) subcutaneous pen RxNorm: 591818 Unit(s) SQ 35 units QAM and 55 units QHS Unit(s) SQ 10/27/2017 02/07/2018 Inactive Wants insulin pens Percocet 10 mg-325 mg tablet RxNorm: 4516860 1-2 Tablet(s) PO Q6 PRN 10/27/2017 11/08/2017 Inactive promethazine 25 mg tablet RxNorm: 650660 Tablet(s) 1 Tablet(s) PO Q6 PRN TAKE NEEDED ONLY!!! 10/27/2017 01/01/2018 Inactive Xanax 0.5 mg tablet RxNorm: 185937 Tablet(s) TAKE ONE TABLET BY MOUTH THREE TIMES DAILY 10/20/2017 04/08/2018 Inactive Tessalon Perles 100 mg capsule RxNorm: 264381 Capsule(s) 2 Capsule(s) PO TID as needed 10/19/2017 11/20/2017 Inactive Diflucan 150 mg tablet RxNorm: 235122 1 Tablet(s) PO every other day 10/15/2017 11/13/2017 Inactive Percocet 10 mg-325 mg tablet RxNorm: 0913176 1-2 Tablet(s) PO Q6 PRN 10/06/2017 10/20/2017 Inactive pantoprazole 40 mg tablet,delayed release RxNorm: 807588 1 Tablet(s) PO BID 10/03/2017 03/31/2018 Inactive Cymbalta 60 mg capsule,delayed release RxNorm: 612742 TAKE ONE CAPSULE BY MOUTH ONCE DAILY 09/21/2017 02/19/2018 Inactive Diflucan 150 mg tablet RxNorm: 970309 1 Tablet(s) PO every other day 09/15/2017 09/19/2017 Inactive hyoscyamine 0.125 mg sublingual tablet RxNorm: 3009998 1 Tablet(s) SL TID as needed 09/08/2017 12/12/2017 Inactive Lantus Solostar U-100 Insulin 100 unit/mL (3 mL) subcutaneous pen RxNorm: 666348 Unit(s) SQ 35 units QAM and 55 units QHS Unit(s) SQ 09/06/2017 09/20/2017 Inactive Wants insulin pens Lasix 40 mg tablet RxNorm: 835731 TAKE ONE TABLET BY MOUTH TWICE DAILY 08/25/2017 04/18/2018 Inactive ropinirole 1 mg tablet RxNorm: 375419 TAKE ONE TABLET BY MOUTH AT BEDTIME 08/25/2017 11/13/2017 Inactive Lantus U-100 Insulin 100 unit/mL subcutaneous solution RxNorm: 323701 35 units QAM and 55 units QHS Unit(s) SQ 08/21/2017 09/05/2017 Inactive Tessaljulisa Perles 100 mg capsule RxNorm: 831144 Capsule(s) 2 Capsule(s) PO TID as needed 08/18/2017 10/18/2017 Inactive Percocet 10 mg-325 mg tablet RxNorm: 5186042 1-2 Tablet(s) PO Q6 PRN 08/16/2017 08/30/2017 Inactive pantoprazole 40 mg tablet,delayed release RxNorm: 283673 TAKE ONE TABLET BY MOUTH TWICE DAILY 08/14/2017 08/13/2017 Inactive pantoprazole 40 mg tablet,delayed release RxNorm: 366762 1 Tablet(s) PO daily 08/14/2017 10/02/2017 Inactive promethazine 25 mg tablet RxNorm: 186540 Tablet(s) 1 Tablet(s) PO Q6 PRN TAKE NEEDED ONLY!!! 08/11/2017 10/26/2017 Inactive omeprazole 20 mg capsule,delayed release RxNorm: 020663 1 Capsule(s) PO daily TAKE 1 CAPSULE BY MOUTH ONCE DAILY 08/07/2017 10/26/2017 Inactive nystatin 100,000 unit/mL oral suspension RxNorm: 633980 5 Milliliter(s) PO QID swish and swallow 08/07/2017 08/16/2017 Inactive mupirocin 2 % topical ointment RxNorm: 855965 APPLY TO SORE IN BELLY BUTTON TWICE DAILY 08/07/2017 02/14/2018 Inactive omeprazole 20 mg capsule,delayed release RxNorm: 048909 1 Capsule(s) PO BID TAKE 1 CAPSULE BY MOUTH TWICE DAILY 08/03/2017 08/06/2017 Inactive Diflucan 150 mg tablet RxNorm: 117962 1 Tablet(s) PO daily 08/05/2017 Inactive hyoscyamine 0.125 mg sublingual tablet RxNorm: 4866695 1 Tablet(s) SL TID as needed 08/03/2017 09/01/2017 Inactive gentamicin 0.3 % eye drops RxNorm: 981664 2 Drop(s) ophthalmic (eye) TID 08/03/2017 08/09/2017 Inactive Levaquin 500 mg tablet RxNorm: 206913 1 Tablet(s) PO every other day x3 doses 07/27/2017 08/02/2017 Inactive gentamicin 0.3 % eye drops RxNorm: 712894 2 Drop(s) ophthalmic (eye) TID 07/27/2017 08/02/2017 Inactive dicyclomine 10 mg capsule RxNorm: 063817 1 Capsule(s) PO TID 08/02/2017 Inactive Levaquin 500 mg tablet RxNorm: 305014 1 Tablet(s) PO daily 12/201707/26/2017 Inactive Lantus U-100 Insulin 100 unit/mL subcutaneous solution RxNorm: 662952 INJECT 35 UNITS SUBCUTANEOUSLY IN THE MORNING AND 55 UNITS AT BEDTIME 07/24/2017 09/05/2017 Inactive Tessalon Perles 100 mg capsule RxNorm: 972205 2 Capsule(s) PO TID as needed 07/24/2017 08/17/2017 Inactive Percocet 10 mg-325 mg tablet RxNorm: 8828548 1-2 Tablet(s) PO Q6 PRN 07/21/2017 08/04/2017 Inactive promethazine 25 mg tablet RxNorm: 842590 1 Tablet(s) PO Q6 PRN 1 Tablet(s) PO Q6 PRN 07/19/2017 07/26/2017 Inactive Cartia XT 240 mg capsule,extended release RxNorm: 297503 1 Capsule(s) PO daily 06/27/2017 06/21/2018 Active potassium chloride ER 20 mEq tablet,extended release RxNorm: 216378 Tablet(s) TAKE ONE TABLET BY MOUTH ONCE DAILY 06/21/2017 No Stop Date Active Lantus U-100 Insulin 100 unit/mL subcutaneous solution RxNorm: 586122 35 units QAM and 55 units QHS Unit(s) SQ 06/21/2017 07/20/2017 Inactive Please provide 30 day supply Percocet 10 mg-325 mg tablet RxNorm: 3745182 1-2 Tablet(s) PO Q6 PRN 06/21/2017 07/05/2017 Inactive Cartia XT 180 mg capsule,extended release RxNorm: 324635 Capsule(s) BID 06/21/2017 06/26/2017 Inactive Xanax 0.5 mg tablet RxNorm: 233304 Tablet(s) TAKE ONE TABLET BY MOUTH THREE TIMES DAILY 06/21/2017 08/19/2017 Inactive digoxin 125 mcg tablet RxNorm: 290281 1 Tablet(s) PO daily 10/18/2017 Inactive gabapentin 600 mg tablet RxNorm: 042205 Tablet(s) TAKE ONE & ONE-HALF TABLETS BY MOUTH THREE TIMES DAILY 06/21/20172017 Inactive dicyclomine 10 mg capsule RxNorm: 304692 1 Capsule(s) PO TID 07/26/2017 Inactive Lantus U-100 Insulin 100 unit/mL subcutaneous solution RxNorm: 251904 35 units QAM and 55 units QHS Unit(s) SQ 06/13/2017 06/20/2017 Inactive Please provide 30 day supply potassium chloride ER 20 mEq tablet,extended release RxNorm: 534580 TAKE ONE TABLET BY MOUTH ONCE DAILY 06/02/2017 Inactive cyclobenzaprine 10 mg tablet RxNorm: 021994 Tablet(s) TABLET(S) 1 TABLET(S) PO NEEDED TAKE 1 TABLET BY MOUTH EVERY 8 HOURS NEEDED 201711/02/2017 Inactive Tessalon Perles 100 mg capsule RxNorm: 308410 2 Capsule(s) PO TID as needed 06/01/2017 07/23/2017 Inactive promethazine 25 mg tablet RxNorm: 249634 1 Tablet(s) PO Q6 PRN 1 Tablet(s) PO Q6 PRN 05/25/2017 06/01/2017 Inactive gabapentin 600 mg tablet RxNorm: 220705 TAKE ONE & ONE-HALF TABLETS BY MOUTH THREE TIMES DAILY 05/23/2017 06/20/2017 Inactive promethazine 25 mg tablet RxNorm: 151571 1 Tablet(s) PO Q6 PRN 1 Tablet(s) PO Q6 PRN 05/19/2017 05/24/2017 Inactive Flagyl 500 mg tablet RxNorm: 183022 1 Tablet(s) PO TID 201605/26/2017 Inactive Levaquin 500 mg tablet RxNorm: 080212 1 Tablet(s) PO daily 05/16/2017 Inactive Tessalon Perles 100 mg capsule RxNorm: 500341 2 Capsule(s) PO TID as needed 05/17/2017 05/31/2017 Inactive Flagyl 500 mg tablet RxNorm: 408336 1 Tablet(s) PO TID 201605/16/2017 Inactive hyoscyamine 0.125 mg sublingual tablet RxNorm: 4519233 1 Tablet(s) SL TID as needed 05/17/2017 06/12/2017 Inactive Levaquin 500 mg tablet RxNorm: 038235 1 Tablet(s) PO daily 05/23/2017 Inactive Cymbalta 60 mg capsule,delayed release RxNorm: 403067 1 Capsule(s) PO daily take with 30mg tablet 05/16/2017 08/13/2017 Inactive Bentyl 10 mg capsule RxNorm: 348388 1 Capsule(s) PO TID as needed 05/12/2017 06/10/2017 Inactive Levsin 0.125 mg tablet RxNorm: 0210483 1 Tablet(s) PO Q4 PRN 1-2 Tablet(s) PO Q4 PRN 05/11/2017 05/11/2017 Inactive nystatin 100,000 unit/gram topical powder RxNorm: 202792 Gram(s) APPLY POWDER TOPICALLY 4 TIMES DAILY 05/11/20172017 Inactive nystatin 100,000 unit/mL oral suspension RxNorm: 395982 4 Milliliter(s) PO QID swish and swallow 05/10/2017 05/19/2017 Inactive and Monistat over the counter colestipol 1 gram tablet RxNorm: 0163650 TAKE ONE TABLET BY MOUTH TWICE DAILY 05/08/2017 03/29/2018 Inactive Lantus 100 unit/mL subcutaneous solution RxNorm: 583124 30 units QAM and 50 units QHS Unit(s) SQ 04/28/2017 05/27/2017 Inactive Please provide 30 day supply Lantus Solostar 100 unit/mL (3 mL) subcutaneous insulin pen RxNorm: 053840 Unit( s) SQ BID 04/28/2017 06/13/2017 Inactive 30 units q am and 50units at night Lantus 100 unit/mL subcutaneous solution RxNorm: 162101 30 units QAM and 50 units QHS Unit(s) SQ 04/28/2017 04/27/2017 Inactive Please provide 30 day supply Levsin 0.125 mg tablet RxNorm: 0964350 1 Tablet(s) PO Q4 PRN 1-2 Tablet(s) PO Q4 PRN 04/25/2017 05/10/2017 Inactive promethazine 25 mg tablet RxNorm: 843337 1 Tablet(s) PO Q6 PRN 1 Tablet(s) PO Q6 PRN 04/25/2017 05/02/2017 Inactive Toprol XL 100 mg tablet,extended release RxNorm: 266995 TAKE ONE TABLET BY MOUTH TWICE DAILY 04/24/2017 11/14/2017 Inactive Flagyl 500 mg tablet RxNorm: 607119 1 Tablet(s) PO TID 201604/30/2017 Inactive Levaquin 500 mg tablet RxNorm: 934611 1 Tablet(s) PO daily 05/201604/27/2017 Inactive Voltaren 1 % topical gel RxNorm: 086319 4 Gram(s) TOP QID 04/1810/14/2017 Inactive mupirocin 2 % topical ointment RxNorm: 761636 1 Application TOP BID 04/18/2017 04/27/2017 Inactive apply to sore in belly button Lantus Solostar 100 unit/mL (3 mL) subcutaneous insulin pen RxNorm: 256902 Unit( s) SQ BID 04/18/2017 04/27/2017 Inactive 20 units q am and 50units at night levothyroxine 88 mcg tablet RxNorm: 861075 1 Tablet(s) PO daily TAKE ONE TABLET BY MOUTH ONCE DAILY 04/06/2017 04/17/2017 Inactive Xanax 0.5 mg tablet RxNorm: 022558 Tablet(s) TAKE ONE TABLET BY MOUTH THREE TIMES DAILY 04/04/2017 06/02/2017 Inactive Percocet 10 mg-325 mg tablet RxNorm: 5104445 1-2 Tablet(s) PO Q6 PRN 04/04/2017 04/18/2017 Inactive cyclobenzaprine 10 mg tablet RxNorm: 258824 TAKE ONE TABLET BY MOUTH EVERY 8 HOURS NEEDED 04/03/2017 06/01/2017 Inactive potassium chloride ER 20 mEq tablet,extended release RxNorm: 601218 1 Tablet(s) PO daily 03/28/2017 06/01/2017 Inactive nystatin 100,000 unit/gram topical cream RxNorm: 752084 1 Application TOP BID 03/27/2017 04/09/2017 Inactive Levsin 0.125 mg tablet RxNorm: 7520130 1 Tablet(s) PO Q4 PRN 1-2 Tablet(s) PO Q4 PRN 03/27/2017 04/24/2017 Inactive promethazine 25 mg tablet RxNorm: 311489 1 Tablet(s) PO Q6 PRN 03/23/2017 03/29/2017 Inactive nystatin 100,000 unit/gram topical powder RxNorm: 503006 APPLY POWDER TOPICALLY 4 TIMES DAILY 03/17/2017 05/10/2017 Inactive Percocet 10 mg-325 mg tablet RxNorm: 1950973 1-2 Tablet(s) PO Q6 PRN 03/09/2017 03/23/2017 Inactive Levsin 0.125 mg tablet RxNorm: 9259413 1-2 Tablet(s) PO Q4 PRN 03/06/2017 03/26/2017 Inactive promethazine 25 mg tablet RxNorm: 529581 1 Tablet(s) PO Q6 PRN 03/06/2017 03/13/2017 Inactive potassium chloride ER 20 mEq tablet,extended release RxNorm: 535997 1 Tablet(s) PO BID 02/23/2017 03/09/2017 Inactive Levsin/SL 0.125 mg sublingual tablet RxNorm: 5894141 1-2 Tablet(s) SL Q4 PRN 02/17/2017 03/26/2017 Inactive potassium chloride ER 20 mEq tablet,extended release RxNorm: 213023 1 Tablet(s) PO BID 02/17/2017 02/21/2017 Inactive magnesium oxide 400 mg tablet RxNorm: 491097 1 Tablet(s) PO daily 02/17/2017 02/21/2017 Inactive then twice weekly thereafter Levsin 0.125 mg tablet RxNorm: 3663892 1-2 Tablet(s) PO Q4 PRN 02/17/2017 02/16/2017 Inactive promethazine 25 mg tablet RxNorm: 188243 1 Tablet(s) PO Q6 PRN 02/10/2017 03/05/2017 Inactive Percocet 10 mg-325 mg tablet RxNorm: 3803878 1-2 Tablet(s) PO Q6 PRN 02/09/2017 02/23/2017 Inactive Cymbalta 60 mg capsule,delayed release RxNorm: 693238 1 Capsule(s) PO daily take with 30mg tablet 02/06/2017 05/06/2017 Inactive Cymbalta 30 mg capsule,delayed release RxNorm: 096798 1 Capsule(s) PO daily take with 60mg tablet 02/06/2017 02/19/2018 Inactive take with 60mg=90mg Vitamin D2 50,000 unit capsule RxNorm: 784640 1 Capsule(s) PO daily 01/17/2017 01/16/2017 Inactive daily x 6 mths Tresiba FlexTouch U-100 100 unit/mL (3 mL) subcutaneous insulin pen RxNorm: 8310055 40 Unit(s) SQ daily 01/17/20172016 Inactive Tresiba FlexTouch U-100 100 unit/mL (3 mL) subcutaneous insulin pen RxNorm: 2468963 40 Unit(s) SQ daily 01/17/20172016 Inactive Vitamin D2 50,000 unit capsule RxNorm: 215263 1 Capsule(s) PO daily 01/17/2017 10/26/2017 Inactive daily x 6 mths Cymbalta 30 mg capsule,delayed release RxNorm: 939058 1 Capsule(s) PO daily 01/16/2017 02/05/2017 Inactive take with 60mg=90mg Percocet 10 mg-325 mg tablet RxNorm: 3495935 1-2 Tablet(s) PO Q6 PRN 01/13/2017 01/27/2017 Inactive gabapentin 600 mg tablet RxNorm: 604319 TAKE ONE & ONE-HALF TABLETS BY MOUTH THREE TIMES DAILY 01/10/2017 05/09/2017 Inactive Percocet 10 mg-325 mg tablet RxNorm: 7070448 1-2 Tablet(s) PO Q6 PRN 12/21/2016 01/04/2017 Inactive Xanax 0.5 mg tablet RxNorm: 599200 Tablet(s) TAKE ONE TABLET BY MOUTH THREE TIMES DAILY 12/20/2016 02/15/2017 Inactive promethazine 25 mg tablet RxNorm: 015252 1 Tablet(s) PO Q6 PRN 12/16/2016 12/18/2016 Inactive prednisone 20 mg tablet RxNorm: 092366 2 Tablet(s) PO daily 12/14/2016 Inactive prednisone 20 mg tablet RxNorm: 269726 2 Tablet(s) PO daily 03/26/2017 Inactive Eliquis 5 mg tablet RxNorm: 8088912 1 Tablet(s) PO BID 201601/11/2017 Inactive doxycycline monohydrate 100 mg tablet RxNorm: 396584 1 Tablet(s) PO BID 12/13/2016 03/26/2017 Inactive give doxycyline hyclate cyclobenzaprine 10 mg tablet RxNorm: 029608 TAKE ONE TABLET BY MOUTH EVERY 8 HOURS NEEDED 12/09/2016 12/28/2016 Inactive Cymbalta 60 mg capsule,delayed release RxNorm: 129549 TAKE ONE CAPSULE BY MOUTH ONCE DAILY 11/30/2016 02/05/2017 Inactive promethazine 25 mg tablet RxNorm: 039026 2 Tablet(s) PO Q6 PRN 11/29/2016 12/16/2016 Inactive Percocet 10 mg-325 mg tablet RxNorm: 2073843 1-2 Tablet(s) PO Q6 PRN 11/24/2016 12/08/2016 Inactive mupirocin 2 % topical ointment RxNorm: 592594 1 Application TOP BID 11/11/2016 11/24/2016 Inactive Xanax 0.5 mg tablet RxNorm: 040371 Tablet(s) TAKE ONE TABLET BY MOUTH THREE TIMES DAILY 11/11/2016 12/19/2016 Inactive Belviq 10 mg tablet RxNorm: 7065977 1 Tablet(s) PO BID 201612/10/2016 Inactive Toprol XL 100 mg tablet,extended release RxNorm: 463231 TAKE ONE TABLET BY MOUTH TWICE DAILY 11/04/2016 04/02/2017 Inactive albuterol sulfate concentrate 2.5 mg/0.5 mL solution for nebulization RxNorm: 421312 USE ONE VIAL IN NEBULIZER EVERY 4 TO 6 HOURS NEEDED 11/03/2016 11/12/2016 Inactive Percocet 10 mg-325 mg tablet RxNorm: 2221948 1-2 Tablet(s) PO Q6 PRN 10/31/2016 11/23/2016 Inactive promethazine 25 mg tablet RxNorm: 243117 2 Tablet(s) PO Q6 PRN 10/28/2016 11/28/2016 Inactive nystatin 100,000 unit/mL oral suspension RxNorm: 699867 5 Milliliter(s) PO QID 10/28/2016 11/06/2016 Inactive Levemir FlexTouch 100 unit/mL (3 mL) subcutaneous insulin pen RxNorm: 151318 45 Unit(s) SQ BID 10/28/2016 01/16/2017 Inactive 45 q am and 40 q anita cyclobenzaprine 10 mg tablet RxNorm: 560992 TAKE ONE TABLET BY MOUTH EVERY 8 HOURS NEEDED 10/21/2016 11/09/2016 Inactive Lasix 40 mg tablet RxNorm: 009914 TAKE ONE TABLET BY MOUTH TWICE DAILY 10/18/2016 04/15/2017 Inactive Percocet 10 mg-325 mg tablet RxNorm: 7794959 1-2 Tablet(s) PO Q6 PRN 10/18/2016 10/30/2016 Inactive acyclovir 400 mg tablet RxNorm: 376996 2 Tablet(s) PO QID 10/1310/22/2016 Inactive Lasix 40 mg tablet RxNorm: 756610 TAKE ONE TABLET BY MOUTH TWICE DAILY 10/10/2016 10/17/2016 Inactive ropinirole 1 mg tablet RxNorm: 106100 TAKE ONE TABLET BY MOUTH AT BEDTIME 10/10/2016 04/07/2017 Inactive nystatin 100,000 unit/mL oral suspension RxNorm: 921021 5 Milliliter(s) PO QID x 10 days 09/30/2016 10/09/2016 Inactive nystatin 100,000 unit/mL oral suspension RxNorm: 784646 5 Milliliter(s) PO QID x 10 days 09/30/2016 10/09/2016 Inactive Swish et swallow Flonase Allergy Relief 50 mcg/actuation nasal spray, suspension RxNorm: 7562511 2 [place] NASAL daily 09/23/20162016 Inactive Percocet 10 mg-325 mg tablet RxNorm: 0834948 1-2 Tablet(s) PO Q6 PRN 09/23/2016 10/17/2016 Inactive doxycycline monohydrate 100 mg tablet RxNorm: 752536 1 Tablet(s) PO BID 09/23/2016 10/02/2016 Inactive give doxycyline hyclate Levemir FlexTouch 100 unit/mL (3 mL) subcutaneous insulin pen RxNorm: 374291 40 Unit(s) SQ BID 09/15/2016 10/27/2016 Inactive nystatin 100,000 unit/gram topical powder RxNorm: 030257 1 Application TOP QID 09/13/2016 09/22/2016 Inactive Voltaren 1 % topical gel RxNorm: 318584 4 Gram(s) TOP QID 09/1303/11/2017 Inactive Anusol-HC 25 mg rectal suppository RxNorm: 3325460 1 Suppository RTL HS 09/13/2016 09/26/2016 Inactive hydrocodone 10 mg-acetaminophen 325 mg tablet RxNorm: 599635 1-2 Tablet(s) PO Q6 as needed 09/13/2016 09/22/2016 Inactive Linzess 145 mcg capsule RxNorm: 7806037 1 Capsule(s) PO daily 09/01/2016 10/26/2017 Inactive Linzess 145 mcg capsule RxNorm: 0118330 1 Capsule(s) PO daily 09/01/2016 08/31/2016 Inactive Zofran 4 mg tablet RxNorm: 702143 TAKE ONE TABLET BY MOUTH EVERY 4 TO 6 HOURS NEEDED 08/29/2016 08/02/2017 Inactive Voltaren 1 % topical gel RxNorm: 485338 4 Gram(s) TOP QID 08/2309/12/2016 Inactive levothyroxine 88 mcg tablet RxNorm: 127673 TAKE ONE TABLET BY MOUTH ONCE DAILY 08/19/2016 12/16/2016 Inactive hydrocodone 10 mg-acetaminophen 325 mg tablet RxNorm: 721439 1 Tablet(s) PO Q6 as needed 08/17/2016 09/12/2016 Inactive nystatin 100,000 unit/gram topical powder RxNorm: 028397 1 Application TOP QID 08/16/2016 08/25/2016 Inactive Cymbalta 60 mg capsule,delayed release RxNorm: 700654 TAKE ONE CAPSULE BY MOUTH ONCE DAILY 08/10/2016 11/29/2016 Inactive Voltaren 1 % topical gel RxNorm: 682544 4 Gram(s) TOP QID 08/1008/22/2016 Inactive Voltaren 1 % topical gel RxNorm: 757070 4 Gram(s) TOP QID 08/1008/09/2016 Inactive promethazine 25 mg tablet RxNorm: 498341 TAKE ONE TABLET BY MOUTH EVERY 8 HOURS NEEDED FOR NAUSEA 07/29/20162017 Inactive nystatin 100,000 unit/gram topical powder RxNorm: 949697 1 Application TOP QID 07/26/2016 08/04/2016 Inactive Levemir FlexTouch U-100 Insulin 100 unit/mL (3 mL) subcutaneous pen RxNorm: 478099 35 Unit(s) SQ BID 07/26/201609/2016 Inactive 35 q am and 30 q pm cyclobenzaprine 10 mg tablet RxNorm: 520367 TAKE ONE TABLET BY MOUTH EVERY 8 HOURS NEEDED 07/14/2016 08/22/2016 Inactive hydrocodone 10 mg-acetaminophen 325 mg tablet RxNorm: 245790 1 Tablet(s) PO Q6 as needed 07/11/2016 08/16/2016 Inactive nystatin 100,000 unit/mL oral suspension RxNorm: 370691 5 Milliliter(s) PO QID x 10 days 07/05/2016 07/04/2016 Inactive nystatin 100,000 unit/mL oral suspension RxNorm: 498687 5 Milliliter(s) PO QID x 10 days 07/05/2016 07/04/2016 Inactive nystatin 100,000 unit/mL oral suspension RxNorm: 340290 5 Milliliter(s) PO QID x 10 days 07/05/2016 07/14/2016 Inactive Swish et swallow doxycycline monohydrate 100 mg tablet RxNorm: 651216 1 Tablet(s) PO BID 06/24/2016 07/03/2016 Inactive give doxycyline hyclate promethazine 25 mg tablet RxNorm: 602169 TAKE ONE TABLET BY MOUTH EVERY 8 HOURS NEEDED FOR NAUSEA 06/01/20162016 Inactive pantoprazole 40 mg tablet,delayed release RxNorm: 302989 1 Tablet(s) PO BID 05/25/2016 08/02/2017 Inactive Zofran 4 mg tablet RxNorm: 954492 1 Tablet(s) PO Q12 PRN TAKE 1 TABLET BY MOUTH EVERY 4 TO 6 HOURS NEEDED 05/24/2016 Inactive hydrocodone 10 mg-acetaminophen 325 mg tablet RxNorm: 744264 1 Tablet(s) PO Q6 as needed 05/24/2016 07/10/2016 Inactive Levemir FlexTouch 100 unit/mL (3 mL) subcutaneous insulin pen RxNorm: 900155 25 Unit(s) SQ BID 05/24/2016 06/22/2016 Inactive Xanax 0.5 mg tablet RxNorm: 527290 Tablet(s) TAKE ONE TABLET BY MOUTH THREE TIMES DAILY 05/11/2016 07/09/2016 Inactive BD Insulin Pen Needle UF Short 31 gauge x 5/16" RxNorm: [facility] [place]/06/2016 05/05/2016 Inactive BD Insulin Pen Needle UF Short 31 gauge x 5/16" RxNorm: [facility] [place] 05/06/2016 06/04/2016 Inactive colestipol 1 gram tablet RxNorm: 1555084 Tablet(s) TAKE 1 TABLET BY MOUTH TWICE DAILY 04/22/2016 04/16/2017 Inactive Levemir FlexTouch 100 unit/mL (3 mL) subcutaneous insulin pen RxNorm: 571423 20 Unit(s) SQ BID 04/19/2016 05/18/2016 Inactive 25 UNITS Q AM AND 20 UNITS Q HS Cartia XT 180 mg capsule,extended release RxNorm: 593053 Capsule(s) BID 04/11/2016 04/05/2017 Inactive hydrocodone 10 mg-acetaminophen 325 mg tablet RxNorm: 982873 1 Tablet(s) PO Q6 as needed 04/11/2016 05/23/2016 Inactive Levemir FlexTouch 100 unit/mL (3 mL) subcutaneous insulin pen RxNorm: 804737 20 Unit(s) SQ BID 04/11/2016 04/18/2016 Inactive 20 UNITS Q AM AND 15 UNITS Q HS X 1 WEEK THEN 20 UNITS BID levothyroxine 88 mcg tablet RxNorm: 782351 1 Tablet(s) PO daily 03/21/2016 07/18/2016 Inactive Cymbalta 60 mg capsule,delayed release RxNorm: 102368 1 Capsule(s) PO daily 03/21/2016 07/18/2016 Inactive diltiazem ER (XR/XT) 240 mg capsule,extended release, controlled RxNorm: 877453 1 Capsule(s) PO BID 03/18/20162017 Inactive doxycycline hyclate 100 mg tablet RxNorm: 566961 1 Tablet(s) PO BID 03/11/2016 03/17/2016 Inactive Levemir FlexTouch 100 unit/mL (3 mL) subcutaneous insulin pen RxNorm: 347404 10 Unit(s) SQ BID 03/11/2016 04/09/2016 Inactive Lasix 40 mg tablet RxNorm: 853622 1 Tablet(s) PO BID 201509/06/2016 Inactive gabapentin 600 mg tablet RxNorm: 431113 Tablet(s) 1.5 TABLET(S) PO TID 03/04/2016 08/30/2016 Inactive Toujeo SoloStar 300 unit/mL (1.5 mL) subcutaneous insulin pen RxNorm: 4394785 10 Unit(s) SQ QHS 02/26/2016 03/26/2016 Inactive polymyxin B sulfate 10,000 unit-trimethoprim 1 mg/mL eye drops RxNorm: 986900 2 Drop(s) OPH TID 02/26/2016 03/03/2016 Inactive Lasix 20 mg tablet RxNorm: 867756 2 Tablet(s) PO BID TAKE 2 TABLETS BY MOUTH EVERY MORNING AND 2 TABLET BY MOUTH AT 3 PM 02/26/2016 03/10/2016 Inactive cyclobenzaprine 10 mg tablet RxNorm: 090479 Tablet(s) TABLET(S) TABLET(S) 1 TABLET (S) PO NEEDED TAKE 1 TABLET BY MOUTH EVERY 8 HOURS NEEDED 02/26/2016 07/13/2016 Inactive early fill- pt lost med Levemir FlexTouch 100 unit/mL (3 mL) subcutaneous insulin pen RxNorm: 831825 16 Unit(s) SQ QHS 02/18/2016 02/17/2016 Inactive Levemir FlexTouch 100 unit/mL (3 mL) subcutaneous insulin pen RxNorm: 817809 16 Unit(s) SQ QHS 02/18/2016 02/25/2016 Inactive Levemir 100 unit/mL subcutaneous solution RxNorm: 570877 16 Unit(s) SQ QHS 02/15/2016 02/17/2016 Inactive disp needles as well Effexor XR 37.5 mg capsule,extended release RxNorm: 192292 1 Capsule(s) QPM CAPSULE(S) PO TAKE 2 CAPSULES BY MOUTH EVERY MORNING AND 1 CAPSULE BY MOUTH EVERY NIGHT AT BEDTIME 02/15/20162015 Inactive clotrimazole 100 mg vaginal tablet RxNorm: 924645 1 Tablet(s) VAG QHS 02/05/2016 02/11/2016 Inactive clotrimazole 100 mg vaginal tablet RxNorm: 370805 1 Tablet(s) VAG QHS 02/05/2016 02/04/2016 Inactive hydrocodone 10 mg-acetaminophen 325 mg tablet RxNorm: 296495 1 Tablet(s) PO Q6 as needed 02/05/2016 04/10/2016 Inactive flecainide 100 mg tablet RxNorm: 444175 1 Tablet(s) PO BID No Stop Date Active potassium chloride ER 10 mEq tablet,extended release RxNorm: 200216 1 Tablet(s) PO daily 1 TABLET(S) PO QDAY PRN TAKE WITH LASIX 02/02/2016 01/26/2017 Inactive Brovana 15 mcg/2 mL solution for nebulization RxNorm: 039212 2 Milliliter(s) INH BID PRN 02/02/2016 03/20/2016 Inactive promethazine 25 mg tablet RxNorm: 214991 1 Tablet(s) PO Q8 as needed nausea 01/27/2016 03/20/2016 Inactive promethazine 25 mg tablet RxNorm: 008525 1 Tablet(s) PO Q6 PRN 01/27/2016 02/03/2016 Inactive nystatin 100,000 unit/mL oral suspension RxNorm: 502373 5 Unit(s) PO QID 01/12/2016 01/21/2016 Inactive promethazine 25 mg tablet RxNorm: 503017 1 Tablet(s) PO Q6 PRN 12/30/2015 01/06/2016 Inactive hydrocodone 7.5 mg-acetaminophen 325 mg tablet RxNorm: 937456 1 Tablet(s) PO q 6 hours prn for pain 12/10/2015 01/06/2016 Inactive Xanax 0.5 mg tablet RxNorm: 817737 TAKE ONE TABLET BY MOUTH THREE TIMES DAILY 12/02/2015 12/31/2015 Inactive Xanax 0.5 mg tablet RxNorm: 679731 Tablet(s) TAKE 1 TABLET BY MOUTH THREE TIMES DAILY 12/02/2015 11/30/2015 Inactive Anusol-HC 25 mg rectal suppository RxNorm: 8074721 1 Suppository RTL HS 11/27/2015 09/12/2016 Inactive ropinirole 1 mg tablet RxNorm: 376190 1 Tablet(s) PO QHS 201505/24/2016 Inactive nystatin 100,000 unit/mL oral suspension RxNorm: 702207 5 Unit(s) PO QID 11/20/2015 11/29/2015 Inactive albuterol sulfate concentrate 2.5 mg/0.5 mL solution for nebulization RxNorm: 734413 3 Milliliter(s) INH Q4-6H as needed 11/10/2015 11/02/2016 Inactive doxycycline monohydrate 100 mg tablet RxNorm: 905895 1 Tablet(s) PO BID 11/10/2015 11/19/2015 Inactive give doxycyline hyclate promethazine 25 mg tablet RxNorm: 024391 1 Tablet(s) PO Q6 PRN 11/05/2015 11/12/2015 Inactive Bactroban 2 % topical ointment RxNorm: 344573 1 APPLICATION TOP BID 10/27/2015 10/26/2017 Inactive Belviq 10 mg tablet RxNorm: 6013917 1 Tablet(s) PO BID 201511/25/2015 Inactive hydrocodone 7.5 mg-acetaminophen 325 mg tablet RxNorm: 003575 1 Tablet(s) PO q 6 hours prn for pain 10/20/2015 11/18/2015 Inactive Toprol XL 100 mg tablet,extended release RxNorm: 855150 Tablet(s) TAKE 1 TABLET BY MOUTH TWICE DAILY 10/16/20152016 Inactive Diflucan 150 mg tablet RxNorm: 240521 1 Tablet(s) PO every other day 10/14/2015 10/23/2015 Inactive Xanax 0.5 mg tablet RxNorm: 973903 Tablet(s) TAKE 1 TABLET BY MOUTH THREE TIMES DAILY 10/14/2015 05/10/2016 Inactive Toprol XL 100 mg tablet,extended release RxNorm: 423890 Tablet(s) TAKE 1 TABLET BY MOUTH TWICE DAILY 10/13/20152015 Inactive cyclobenzaprine 10 mg tablet RxNorm: 422851 Tablet(s) TABLET(S) TABLET(S) 1 TABLET (S) PO NEEDED TAKE 1 TABLET BY MOUTH EVERY 8 HOURS NEEDED 10/02/2015 10/14/2015 Inactive Zofran 4 mg tablet RxNorm: 742874 Tablet(s) 1 TABLET(S) PRN TAKE 1 TABLET BY MOUTH EVERY 4 TO 6 HOURS NEEDED 09/29/2015 12/27/2015 Inactive Synthroid 88 mcg tablet RxNorm: 832879 1 Tablet(s) PO daily 1 TABLET(S) PO DAILY 09/29/2015 10/28/2015 Inactive Patient requests 90 days supply promethazine 25 mg tablet RxNorm: 575976 1 Tablet(s) PO Q6 PRN 09/29/2015 11/04/2015 Inactive Lasix 20 mg tablet RxNorm: 337844 2 Tablet(s) PO BID 201501/18/2016 Inactive promethazine 25 mg tablet RxNorm: 153191 1 Tablet(s) PO Q6 PRN 09/22/2015 09/28/2015 Inactive hydrocodone 7.5 mg-acetaminophen 325 mg tablet RxNorm: 491936 1 Tablet(s) PO q 6 hours prn for pain 09/17/2015 10/16/2015 Inactive WelChol 625 mg tablet RxNorm: 068139 3 Tablet(s) PO BID 201503/26/2017 Inactive promethazine 25 mg tablet RxNorm: 272782 1 Tablet(s) PO Q8 as needed 09/07/2015 10/26/2017 Inactive Levemir 100 unit/mL subcutaneous solution RxNorm: 044456 16 Unit(s) SQ QHS 09/01/2015 02/14/2016 Inactive pantoprazole 40 mg tablet,delayed release RxNorm: 144024 1 Tablet(s) PO daily 09/01/2015 05/24/2016 Inactive Effexor XR 37.5 mg capsule,extended release RxNorm: 846619 Capsule(s) CAPSULE(S) PO TAKE 2 CAPSULES BY MOUTH EVERY MORNING AND 1 CAPSULE BY MOUTH EVERY NIGHT AT BEDTIME 08/27/2015 02/14/2016 Inactive promethazine 25 mg tablet RxNorm: 370134 1 Tablet(s) PO Q8 as needed 08/13/2015 09/06/2015 Inactive gabapentin 600 mg tablet RxNorm: 033674 Tablet(s) 1.5 TABLET(S) PO TID 08/13/2015 02/08/2016 Inactive hydrocodone 7.5 mg-acetaminophen 325 mg tablet RxNorm: 178589 1 Tablet(s) PO q 6 hours prn for pain 08/10/2015 09/08/2015 Inactive Zofran 4 mg tablet RxNorm: 816296 Tablet(s) 1 TABLET(S) PRN TAKE 1 TABLET BY MOUTH EVERY 4 TO 6 HOURS NEEDED 08/04/2015 08/03/2015 Inactive Zofran 4 mg tablet RxNorm: 868679 Tablet(s) 1 TABLET(S) PRN TAKE 1 TABLET BY MOUTH EVERY 4 TO 6 HOURS NEEDED 08/04/2015 09/28/2015 Inactive doxycycline monohydrate 100 mg tablet RxNorm: 695395 1 Tablet(s) PO BID 08/04/2015 08/10/2015 Inactive give doxycyline hyclate Diflucan 150 mg tablet RxNorm: 714529 1 Tablet(s) PO every other day 07/31/2015 08/09/2015 Inactive nystatin 100,000 unit/mL oral suspension RxNorm: 695303 5 Milliliter(s) PO QID 07/31/2015 07/30/2015 Inactive Diflucan 150 mg tablet RxNorm: 922588 1 Tablet(s) PO every other day 07/31/2015 07/30/2015 Inactive nystatin 100,000 unit/mL oral suspension RxNorm: 365564 5 Milliliter(s) PO QID 07/31/2015 08/09/2015 Inactive Ceftin 500 mg tablet RxNorm: 964725 1 Tablet(s) PO BID 201507/23/2015 Inactive Ceftin 500 mg tablet RxNorm: 741432 1 Tablet(s) PO BID Pre-medicate with benadryl 50 mg, pepcid 20 mg, and nathanael before each dose 07/24/2015 07/30/2015 Inactive cyclobenzaprine 10 mg tablet RxNorm: 195707 TABLET(S) TABLET(S) 1 TABLET(S) PO NEEDED TAKE 1 TABLET BY MOUTH EVERY 8 HOURS NEEDED 201502/25/2016 Inactive early fill- pt lost med Synthroid 88 mcg tablet RxNorm: 820989 1 TABLET(S) PO DAILY 07/201509/28/2015 Inactive Patient requests 90 days supply cyclobenzaprine 10 mg tablet RxNorm: 658778 Tablet(s) TABLET(S) TABLET(S) 1 TABLET (S) PO NEEDED TAKE 1 TABLET BY MOUTH EVERY 8 HOURS NEEDED 07/23/2015 10/01/2015 Inactive early fill- pt lost med Promethazine VC 6.25 mg-5 mg/5 mL syrup RxNorm: 2269035 1-2 Teaspoon(s) PO Q6 PRN as needed 07/22/2015 03/20/2016 Inactive Diflucan 150 mg tablet RxNorm: 123028 1 Tablet(s) PO daily 06/201507/22/2015 Inactive Lasix 20 mg tablet RxNorm: 290390 Tablet(s) TAKE 2 TABLETS BY MOUTH EVERY MORNING AND 2 TABLET BY MOUTH AT 3PM 07/16/2015 09/21/2015 Inactive Toprol XL 100 mg tablet,extended release RxNorm: 219384 Tablet(s) TAKE 1 TABLET BY MOUTH TWICE DAILY 07/16/20152015 Inactive Cartia XT 180 mg capsule,extended release RxNorm: 748989 Capsule(s) 1 CAPSULE(S) PO DAILY TAKE 1 CAPSULE BY MOUTH AT BEDTIME ..TAKE THIS IN ADDITION TO 240 MG IN THE MORNING 07/14/2015 04/10/2016 Inactive diltiazem ER (XR/XT) 240 mg capsule,extended release, controlled RxNorm: 845697 Capsule(s) TAKE 1 CAPSULE BY MOUTH DAILY 07/14/2015 03/17/2016 Inactive gabapentin 600 mg tablet RxNorm: 771347 Tablet(s) 1.5 TABLET(S) PO TID 07/06/2015 08/12/2015 Inactive Phenergan 25 mg tablet RxNorm: 320438 1 Tablet(s) PO Q8 as needed nausea 06/29/2015 01/25/2016 Inactive doxycycline monohydrate 100 mg tablet RxNorm: 040421 1 Tablet(s) PO BID 06/29/2015 06/28/2015 Inactive doxycycline monohydrate 100 mg tablet RxNorm: 618555 1 Tablet(s) PO BID 06/29/2015 07/08/2015 Inactive give doxycyline hyclate doxycycline monohydrate 100 mg tablet RxNorm: 336149 1 Tablet(s) PO BID 06/29/2015 06/28/2015 Inactive Lasix 20 mg tablet RxNorm: 974951 Tablet(s) TAKE 2 TABLETS BY MOUTH EVERY MORNING AND 2 TABLET BY MOUTH AT 3PM 06/29/2015 07/15/2015 Inactive Lasix 20 mg tablet RxNorm: 534064 Tablet(s) TAKE 2 TABLETS BY MOUTH EVERY MORNING AND 1 TABLET BY MOUTH AT 3PM 06/26/2015 06/28/2015 Inactive Xanax 0.5 mg tablet RxNorm: 205459 Tablet(s) TAKE 1 TABLET BY MOUTH THREE TIMES DAILY 06/26/2015 07/25/2015 Inactive Kenalog 40 mg/mL suspension for injection RxNorm: 3635172 Milliliter(s) Inj 06/26/2015 06/26/2015 Inactive hydrocodone 7.5 mg-acetaminophen 325 mg tablet RxNorm: 980927 1 Tablet(s) PO q 6 hours prn for pain 06/26/2015 07/25/2015 Inactive Dexilant 60 mg capsule, delayed release RxNorm: 476688 1 Capsule(s) PO daily 06/26/2015 08/24/2015 Inactive colestipol 1 gram tablet RxNorm: 8743014 1 TABLET(S) PO BID TAKE 1 TABLET BY MOUTH TWICE DAILY 06/16/2015 03/11/2016 Inactive hydrocodone 7.5 mg-acetaminophen 325 mg tablet RxNorm: 038417 1 Tablet(s) PO q 6 hours prn for pain 06/11/2015 06/25/2015 Inactive cyclobenzaprine 10 mg tablet RxNorm: 029774 TABLET(S) TABLET(S) 1 TABLET(S) PO NEEDED TAKE 1 TABLET BY MOUTH EVERY 8 HOURS NEEDED 201507/22/2015 Inactive early fill- pt lost med Zofran 4 mg tablet RxNorm: 522729 1 TABLET(S) PRN TAKE 1 TABLET BY MOUTH EVERY 4 TO 6 HOURS NEEDED 05/25/20152015 Inactive Zofran 4 mg tablet RxNorm: 288366 1 Tablet(s) PRN TAKE 1 TABLET BY MOUTH EVERY 4 TO 6 HOURS NEEDED 05/19/20152015 Inactive gabapentin 600 mg tablet RxNorm: 814418 1.5 TABLET(S) PO TID 07/05/2015 Inactive Lasix 20 mg tablet RxNorm: 491176 TAKE 2 TABLETS BY MOUTH EVERY MORNING AND 1 TABLET BY MOUTH AT 3PM 05/07/20152015 Inactive Effexor XR 37.5 mg capsule,extended release RxNorm: 672235 Capsule(s) CAPSULE(S) PO TAKE 2 CAPSULES BY MOUTH EVERY MORNING AND 1 CAPSULE BY MOUTH EVERY NIGHT AT BEDTIME 04/15/2015 08/26/2015 Inactive Diflucan 150 mg tablet RxNorm: 390853 1 Tablet(s) PO daily 04/18/2015 Inactive Victoza 3-Babak 0.6 mg/0.1 mL (18 mg/3 mL) subcutaneous pen injector RxNorm: 651603 1.8 Milligram(s) SQ daily 04/14/201508/10 Inactive Levaquin 500 mg tablet RxNorm: 194008 1 Tablet(s) PO daily 04/20/2015 Inactive potassium chloride ER 10 mEq tablet,extended release RxNorm: 570575 1 TABLET(S) PO QDAY PRN TAKE WITH LASIX 04/13/201504/2016 Inactive Effexor XR 37.5 mg capsule,extended release RxNorm: 990667 CAPSULE(S) PO TAKE 2 CAPSULES BY MOUTH EVERY MORNING AND 1 CAPSULE BY MOUTH EVERY NIGHT AT BEDTIME 04/10/2015 04/14/2015 Inactive pantoprazole 40 mg tablet,delayed release RxNorm: 142237 1 Tablet(s) PO daily 03/31/2015 08/31/2015 Inactive Dexilant 60 mg capsule, delayed release RxNorm: 141664 1 Capsule(s) PO daily 03/31/2015 03/31/2015 Inactive pantoprazole 40 mg tablet,delayed release RxNorm: 308697 1 Tablet(s) PO daily 03/31/2015 03/30/2015 Inactive Dexilant 60 mg capsule, delayed release RxNorm: 508637 1 Capsule(s) PO daily 03/31/2015 05/29/2015 Inactive Dexilant 60 mg capsule, delayed release RxNorm: 307934 1 Capsule(s) PO daily 03/30/2015 03/30/2015 Inactive hydrocodone 7.5 mg-acetaminophen 325 mg tablet RxNorm: 756757 1 Tablet(s) PO q 6 hours prn for pain 03/30/2015 04/28/2015 Inactive cyclobenzaprine 10 mg tablet RxNorm: 584485 TABLET(S) TABLET(S) 1 TABLET(S) PO NEEDED TAKE 1 TABLET BY MOUTH EVERY 8 HOURS NEEDED 201405/31/2015 Inactive early fill- pt lost med Xanax 0.5 mg tablet RxNorm: 171166 Tablet(s) TAKE 1 TABLET BY MOUTH THREE TIMES DAILY 03/25/2015 04/23/2015 Inactive Lasix 20 mg tablet RxNorm: 474941 TAKE 2 TABLETS BY MOUTH EVERY MORNING AND 1 TABLET BY MOUTH AT 3PM 03/23/20152014 Inactive Levemir Flexpen 100 unit/mL (3 mL) solution subcutaneous insulin pen RxNorm: 363316 15 Unit(s) SQ BID 03/20/20152015 Inactive give quanity sufficient for 1 month- Dexilant 60 mg capsule, delayed release RxNorm: 718286 1 Capsule(s) PO daily 03/19/2015 03/29/2015 Inactive Dexilant 60 mg capsule, delayed release RxNorm: 630904 1 Capsule(s) PO daily 03/19/2015 03/18/2015 Inactive Diflucan 150 mg tablet RxNorm: 105996 1 Tablet(s) PO every other day x7 doses 03/19/2015 03/21/2015 Inactive hydrocodone 7.5 mg-acetaminophen 325 mg tablet RxNorm: 520782 1 Tablet(s) PO q 6 hours prn for pain 02/27/2015 03/28/2015 Inactive Lasix 20 mg tablet RxNorm: 507001 TAKE 2 TABLETS BY MOUTH EVERY MORNING AND 1 TABLET BY MOUTH AT 3PM 02/27/20152014 Inactive omeprazole 20 mg capsule,delayed release RxNorm: 702014 1 CAPSULE(S) PO DAILY TAKE 1 CAPSULE BY MOUTH TWICE DAILY 02/26/2015 10/26/2017 Inactive Zofran 4 mg tablet RxNorm: 369936 1 Tablet(s) PRN TAKE 1 TABLET BY MOUTH EVERY 4 TO 6 HOURS NEEDED 02/24/20152014 Inactive fluconazole 150 mg tablet RxNorm: 296616 1 Tablet(s) PO every other day x 5 doses 02/19/2015 02/28/2015 Inactive cyclobenzaprine 10 mg tablet RxNorm: 150547 TABLET(S) TABLET(S) 1 TABLET(S) PO NEEDED TAKE 1 TABLET BY MOUTH EVERY 8 HOURS NEEDED 201403/29/2015 Inactive early fill- pt lost med hydrocodone 7.5 mg-acetaminophen 325 mg tablet RxNorm: 647733 1 Tablet(s) PO q 6 hours prn for pain 01/29/2015 02/26/2015 Inactive Xanax 0.5 mg tablet RxNorm: 981067 Tablet(s) TAKE 1 TABLET BY MOUTH THREE TIMES DAILY 01/29/2015 02/27/2015 Inactive Bactroban 2 % topical ointment RxNorm: 008378 1 APPLICATION TOP BID 01/26/2015 10/26/2015 Inactive Bactroban 2 % topical ointment RxNorm: 665268 1 Application TOP BID 01/15/2015 01/25/2015 Inactive doxycycline hyclate 100 mg tablet RxNorm: 327773 1 Tablet(s) PO BID 01/15/2015 01/21/2015 Inactive nystatin 100,000 unit/mL oral suspension RxNorm: 282825 5 Milliliter(s) PO QID 01/15/2015 01/24/2015 Inactive Cartia XT 180 mg capsule,extended release RxNorm: 159987 1 CAPSULE(S) PO DAILY TAKE 1 CAPSULE BY MOUTH AT BEDTIME ..TAKE THIS IN ADDITION TO 240 MG IN THE MORNING 01/13/2015 07/13/2015 Inactive Lasix 20 mg tablet RxNorm: TAKE 2 TABLETS BY MOUTH EVERY MORNING AND 1 TABLET BY MOUTH AT 3PM 01/08/20152014 Inactive fluconazole 150 mg tablet RxNorm: 608766 1 Tablet(s) PO daily 01/01/2015 01/05/2015 Inactive hydrocodone 7.5 mg-acetaminophen 325 mg tablet RxNorm: 820787 1 Tablet(s) PO q 6 hours prn for pain 01/01/2015 01/28/2015 Inactive colestipol 1 gram tablet RxNorm: 6290760 1 TABLET(S) PO BID TAKE 1 TABLET BY MOUTH TWICE DAILY 12/18/2014 06/15/2015 Inactive colestipol 1 gram tablet RxNorm: 0175480 1 TABLET(S) PO BID TAKE 1 TABLET BY MOUTH TWICE DAILY 12/18/2014 09/13/2015 Inactive Lasix 20 mg tablet RxNorm: TAKE 2 TABLETS BY MOUTH EVERY MORNING AND 2 TABLETS AND AT 3PM 12/11/2014 12/25/2014 Inactive cyclobenzaprine 10 mg tablet RxNorm: 649461 TABLET(S) 1 TABLET(S) PO NEEDED TAKE 1 TABLET BY MOUTH EVERY 8 HOURS NEEDED 12/11/2014 05/31/2017 Inactive Lasix 20 mg tablet RxNorm: 175173 Tablet(s) TABLET(S) PO TAKE 2 TABLETS BY MOUTH EVERY MORNING AND 1 TABLET BY MOUTH AT 3 PM 12/10/2014 12/10/2014 Inactive fill early- pt lost them cyclobenzaprine 10 mg tablet RxNorm: 849220 Tablet(s) TABLET(S) 1 TABLET(S) PO NEEDED TAKE 1 TABLET BY MOUTH EVERY 8 HOURS NEEDED 201402/15/2015 Inactive early fill- pt lost med cyclobenzaprine 10 mg tablet RxNorm: 304507 TABLET(S) 1 TABLET(S) PO NEEDED TAKE 1 TABLET BY MOUTH EVERY 8 HOURS NEEDED 12/02/2014 12/09/2014 Inactive hydrocodone 7.5 mg-acetaminophen 325 mg tablet RxNorm: 227245 1 Tablet(s) PO q 6 hours prn for pain 12/01/2014 12/30/2014 Inactive diltiazem ER (XR/XT) 240 mg capsule,extended release, controlled RxNorm: 183090 TAKE 1 CAPSULE BY MOUTH DAILY 11/30/2014 07/13/2015 Inactive Xanax 0.5 mg tablet RxNorm: 830938 1 Tablet(s) PO TID PRN as needed 11/19/2014 11/19/2014 Inactive (Appended: Controlled substance eRx refill - RxReferenceNumber: [id number]|1|0|1) Xanax 0.5 mg tablet RxNorm: 722728 TAKE 1 TABLET BY MOUTH THREE TIMES DAILY 11/19/2014 12/18/2014 Inactive Toprol XL 100 mg tablet,extended release RxNorm: 093178 TAKE 1 TABLET BY MOUTH TWICE DAILY 11/06/2014 07/15/2015 Inactive Diflucan 150 mg tablet RxNorm: 561919 1 Tablet(s) PO every other day x7 doses 11/05/2014 11/07/2014 Inactive omeprazole 20 mg capsule,delayed release RxNorm: 081591 1 Capsule(s) PO daily TAKE 1 CAPSULE BY MOUTH TWICE DAILY 11/04/2014 02/01/2015 Inactive cyclobenzaprine 10 mg tablet RxNorm: 637796 TABLET(S) 1 TABLET(S) PO NEEDED TAKE 1 TABLET BY MOUTH EVERY 8 HOURS NEEDED 10/28/2014 12/01/2014 Inactive hydrocodone 7.5 mg-acetaminophen 325 mg tablet RxNorm: 781455 1 Tablet(s) PO q 6 hours prn for pain 10/21/2014 11/19/2014 Inactive gabapentin 600 mg tablet RxNorm: 912770 1.5 Tablet(s) PO TID 04/30/2015 Inactive Xanax 0.5 mg tablet RxNorm: 941891 Tablet(s) TAKE 1 TABLET BY MOUTH THREE TIMES DAILY 10/01/2014 10/30/2014 Inactive (Response to an electronic controlled substance refill request - RxReferenceNumber: [id number]|1|0|1) Xanax 0.25 mg tablet RxNorm: 691544 1 Tablet(s) PO Q8 PRN as needed 09/30/2014 09/30/2014 Inactive Lasix 20 mg tablet RxNorm: 056272 Tablet(s) TAKE 2 TABLETS BY MOUTH EVERY MORNING AND 2 TABLETS BY MOUTH AT 3 PM 09/30/2014 11/12/2014 Inactive Victoza 3-Babak 0.6 mg/0.1 mL (18 mg/3 mL) subcutaneous pen injector RxNorm: 597723 1.2 MILLIGRAM(S) SQ DAILY 0.6 X 2 WEEKS THEN INCREASE TO 1.2MG DAILY 09/26/2014 04/13/2015 Inactive Xanax 0.5 mg tablet RxNorm: 385810 TAKE 1 TABLET BY MOUTH THREE TIMES DAILY 09/25/2014 09/30/2014 Inactive (Response to an electronic controlled substance refill request - RxReferenceNumber: [id number]|1|0|1) Zofran 4 mg tablet RxNorm: 789035 TAKE 1 TABLET BY MOUTH EVERY 4 TO 6 HOURS NEEDED 09/25/2014 09/27/2014 Inactive hydrocodone 7.5 mg-acetaminophen 325 mg tablet RxNorm: 476922 1 Tablet(s) PO q 6 hours prn for pain 09/19/2014 10/18/2014 Inactive cyclobenzaprine 10 mg tablet RxNorm: 810705 TABLET(S) 1 TABLET(S) PO NEEDED TAKE 1 TABLET BY MOUTH EVERY 8 HOURS NEEDED 09/15/2014 10/27/2014 Inactive Lasix 20 mg tablet RxNorm: Tablet(s) TAKE 2 TABLETS BY MOUTH EVERY MORNING AND 2 TABLETS BY MOUTH AT 3 PM 09/08/2014 09/29/2014 Inactive Lasix 20 mg tablet RxNorm: 469356 TAKE 2 TABLETS BY MOUTH EVERY MORNING AND 2 TABLETS BY MOUTH AT 3 PM 08/21/20142014 Inactive hydrocodone 7.5 mg-acetaminophen 325 mg tablet RxNorm: 487327 1 Tablet(s) PO q 6 hours prn for pain 08/21/2014 09/18/2014 Inactive Diflucan 150 mg tablet RxNorm: 695153 1 Tablet(s) PO every other day 08/15/2014 08/17/2014 Inactive cyclobenzaprine 10 mg tablet RxNorm: 284368 Tablet(s) 1 TABLET(S) PO NEEDED TAKE 1 TABLET BY MOUTH EVERY 8 HOURS NEEDED 08/12/2014 09/14/2014 Inactive Zofran 4 mg tablet RxNorm: 744507 TAKE 1 TABLET BY MOUTH EVERY 4 TO 6 HOURS NEEDED 07/31/2014 08/02/2014 Inactive Effexor XR 37.5 mg capsule,extended release RxNorm: 094507 CAPSULE(S) PO TAKE 2 CAPSULES BY MOUTH EVERY MORNING AND 1 CAPSULE BY MOUTH EVERY NIGHT AT BEDTIME 07/28/2014 02/15/2016 Inactive Lasix 20 mg tablet RxNorm: 886195 TAKE 2 TABLETS BY MOUTH EVERY MORNING AND 2 TABLETS BY MOUTH AT 3 PM 07/22/20142014 Inactive Diflucan 150 mg tablet RxNorm: 189443 1 Tablet(s) PO daily 06/201407/23/2014 Inactive hydrocodone 7.5 mg-acetaminophen 325 mg tablet RxNorm: 943655 1 Tablet(s) PO q 6 hours prn for pain 07/14/2014 08/12/2014 Inactive Synthroid 88 mcg tablet RxNorm: 208301 1 TABLET(S) PO DAILY 10/11/2014 Inactive Effexor XR 37.5 mg capsule,extended release RxNorm: 484432 Capsule(s) PO TAKE 2 CAPSULES BY MOUTH EVERY MORNING AND 1 CAPSULE BY MOUTH EVERY NIGHT AT BEDTIME 07/07/2014 04/09/2015 Inactive Effexor XR 37.5 mg capsule,extended release RxNorm: 690550 TAKE 2 CAPSULES BY MOUTH EVERY MORNING AND 1 CAPSULE BY MOUTH EVERY NIGHT AT BEDTIME 07/07/2014 01/02/2015 Inactive WelChol 625 mg tablet RxNorm: 915826 3 TABLET(S) PO BID 201410/04/2014 Inactive WelChol 625 mg tablet RxNorm: 048365 3 Tablet(s) PO BID 201402/01/2015 Inactive Zofran 4 mg tablet RxNorm: 506357 TAKE 1 TABLET BY MOUTH EVERY 4 TO 6 HOURS NEEDED 07/03/2014 07/05/2014 Inactive Lasix 20 mg tablet RxNorm: TAKE 2 TABLETS BY MOUTH EVERY MORNING AND 2 TABLETS BY MOUTH AT 3 PM 06/26/20142014 Inactive Diflucan 150 mg tablet RxNorm: 898066 1 Tablet(s) PO daily 06/19/2014 Inactive Promethazine VC 6.25 mg-5 mg/5 mL syrup RxNorm: 3582415 1-2 Teaspoon(s) PO Q6 PRN as needed 06/12/2014 07/21/2015 Inactive hydrocodone 7.5 mg-acetaminophen 325 mg tablet RxNorm: 361253 1 Tablet(s) PO q 6 hours prn for pain 06/03/2014 07/02/2014 Inactive Levaquin 500 mg tablet RxNorm: 548289 1 Tablet(s) PO daily 01/201506/05/2014 Inactive cyclobenzaprine 10 mg tablet RxNorm: 538681 Tablet(s) 1 TABLET(S) PO NEEDED TAKE 1 TABLET BY MOUTH EVERY 8 HOURS NEEDED 05/26/2014 No Stop Date Active cyclobenzaprine 10 mg tablet RxNorm: 293182 1 TABLET(S) PO NEEDED TAKE 1 TABLET BY MOUTH EVERY 8 HOURS NEEDED 05/26/2014 08/11/2014 Inactive Lasix 20 mg tablet RxNorm: 619802 Tablet(s) TABLET(S) PO TAKE 2 TABLETS BY MOUTH EVERY MORNING AND 2 TABLET BY MOUTH AT 3 PM 05/12/2014 06/25/2014 Inactive Combivent Respimat 20 mcg-100 mcg/actuation solution for inhalation RxNorm: 1174863 INHALE 1 PUFF BY MOUTH FOUR TIMES DAILY 05/12/2014 11/07/2014 Inactive fluconazole 150 mg tablet RxNorm: 243378 1 Tablet(s) PO UD 05/12/2014 Inactive 1 tab every other day x 5 doses Activella 0.5 mg-0.1 mg tablet RxNorm: 3158751 1 TABLET(S) PO DAILY TAKE 1 TABLET BY MOUTH DAILY FOR MENOPAUSAL SYMPTOM 05/02/2014 09/21/2015 Inactive hydrocodone 7.5 mg-acetaminophen 300 mg tablet RxNorm: 696080 Tablet(s) PO TAKE 1 TABLET BY MOUTH EVERY 6 HOURS NEEDED FOR PAIN 04/21/2014 06/03/2014 Inactive ( Appended: Controlled substance eRx refill - RxReferenceNumber: [id number]|1|0|1 ) Levaquin 500 mg tablet RxNorm: 713357 1 Tablet(s) PO daily 04/21/2014 Inactive Diflucan 150 mg tablet RxNorm: 193719 1 Tablet(s) PO every other day x 4 doses 04/10/2014 06/16/2014 Inactive Lasix 20 mg tablet RxNorm: 610177 TAKE 2 TABLETS BY MOUTH EVERY MORNING AND 1 TABLET BY MOUTH AT 3 PM 04/10/20142013 Inactive potassium chloride ER 10 mEq tablet,extended release RxNorm: 036692 1 TABLET(S) PO QDAY PRN TAKE WITH LASIX 04/09/2014 Inactive Levaquin 250 mg tablet RxNorm: 363556 1 Tablet(s) PO daily 08/201304/07/2014 Inactive 2 tabs today then 1 tab daily until gone atorvastatin 40 mg tablet RxNorm: 399869 1 Tablet(s) daily 1 TABLET(S) PO DAILY 03/25/2014 04/10/2016 Inactive TAKE 1 TABLET BY MOUTH DAILY (THIS IS AN INCREASE IN DOSAGE) Zofran 4 mg tablet RxNorm: 950117 1 Tablet(s) PO Q4-6H 201307/02/2014 Inactive Xanax 0.5 mg tablet RxNorm: 870288 TAKE 1 TABLET BY MOUTH THREE TIMES DAILY NEEDED 03/19/2014 04/17/2014 Inactive (Response to an electronic controlled substance refill request - RxReferenceNumber: [id number]|1|0|1) hydrocodone 7.5 mg-acetaminophen 300 mg tablet RxNorm: 684813 Tablet(s) PO TAKE 1 TABLET BY MOUTH EVERY 6 HOURS NEEDED FOR PAIN 03/19/2014 04/20/2014 Inactive ( Appended: Controlled substance eRx refill - RxReferenceNumber: [id number]|1|0|1 ) atorvastatin 40 mg tablet RxNorm: 327382 1 TABLET(S) PO DAILY 03/10/2014 03/24/2014 Inactive TAKE 1 TABLET BY MOUTH DAILY (THIS IS AN INCREASE IN DOSAGE) WelChol 625 mg tablet RxNorm: 417761 3 Tablet(s) PO BID 201303/06/2014 Inactive WelChol 625 mg tablet RxNorm: 115710 3 Tablet(s) PO BID 201307/04/2014 Inactive Lasix 20 mg tablet RxNorm: 909732 Tablet(s) TABLET(S) PO TAKE 2 TABLETS BY MOUTH EVERY MORNING AND 2 TABLET BY MOUTH AT 3 PM 03/03/2014 05/11/2014 Inactive Lasix 20 mg tablet RxNorm: 779535 TABLET(S) PO TAKE 2 TABLETS BY MOUTH EVERY MORNING AND 1 TABLET BY MOUTH AT 3 PM 02/20/2014 03/02/2014 Inactive gabapentin 600 mg tablet RxNorm: 303284 1.5 Tablet(s) PO TID 09/16/2014 Inactive Synthroid 88 mcg tablet RxNorm: 228856 1 TABLET(S) PO DAILY 05/18/2014 Inactive cyclobenzaprine 10 mg tablet RxNorm: 903906 1 TABLET(S) PO NEEDED TAKE 1 TABLET BY MOUTH EVERY 8 HOURS NEEDED 02/18/2014 05/25/2014 Inactive doxycycline hyclate 100 mg tablet RxNorm: 890576 1 Tablet(s) PO BID 02/13/2014 02/22/2014 Inactive Bactroban 2 % topical ointment RxNorm: 456701 1 Application TOP BID 02/13/2014 03/12/2014 Inactive Victoza 3-Babak 0.6 mg/0.1 mL (18 mg/3 mL) subcutaneous pen injector RxNorm: 089624 1.2 MILLIGRAM(S) SQ DAILY 0.6 X 2 WEEKS THEN INCREASE TO 1.2MG DAILY 02/10/2014 05/10/2014 Inactive albuterol sulfate 1.25 mg/3 mL solution for nebulization RxNorm: 217979 3 MILLILITER(S) INH TID 02/07/20142014 Inactive 1 box Victoza 3-Babak 0.6 mg/0.1 mL (18 mg/3 mL) subcutaneous pen injector RxNorm: 044966 1.8 Milligram(s) SQ daily 0.6 x 2 weeks then increase to 1.2mg daily 01/27/2014 05/26/2014 Inactive Levemir Flexpen 100 unit/mL (3 mL) solution subcutaneous insulin pen RxNorm: 074127 5units sq at hs, increase by 3 Unit(s) SQ at hs every 3days, goal FSBS 170 or less, do not increase above 20units, call doctor with report 01/27/2014 05/26/2014 Inactive hydrocodone 7.5 mg-acetaminophen 300 mg tablet RxNorm: 547860 Tablet(s) PO TAKE 1 TABLET BY MOUTH EVERY 6 HOURS NEEDED FOR PAIN 01/24/2014 03/18/2014 Inactive ( Appended: Controlled substance eRx refill - RxReferenceNumber: [id number]|1|0|1 ) Xanax 0.5 mg tablet RxNorm: 906839 1 Tablet(s) PO TID PRN as needed 01/24/2014 09/21/2014 Inactive (Appended: Controlled substance eRx refill - RxReferenceNumber: [id number]|1|0|1) Xanax 0.5 mg tablet RxNorm: 445351 TAKE 1 TABLET BY MOUTH THREE TIMES DAILY NEEDED 01/23/2014 02/21/2014 Inactive (Response to an electronic controlled substance refill request - RxReferenceNumber: [id number]|1|0|1) hydrocodone 5 mg-acetaminophen 325 mg tablet RxNorm: 274376 TAKE 1 TABLET BY MOUTH EVERY 6 HOURS NEEDED FOR PAIN 01/21/2014 02/19/2014 Inactive (Response to an electronic controlled substance refill request - RxReferenceNumber: [id number]| [id number]|1|0|1) Lasix 20 mg tablet RxNorm: 936683 TAKE 2 TABLETS BY MOUTH EVERY MORNING AND 1 TABLET BY MOUTH AT 3 PM 01/17/20142013 Inactive cyclobenzaprine 10 mg tablet RxNorm: 065772 1 Tablet(s) PO as needed TAKE 1 TABLET BY MOUTH EVERY 8 HOURS NEEDED 01/13/2014 02/17/2014 Inactive Anusol-HC 25 mg suppository RxNorm: 7832800 1 SUPPOSITORY RTL PRN ONE PER RECTUM NEEDED, UP TO TWICE DAILY FOR HEMORRHOID, NO MORE THAN 7 DAYS IN A ROW 01/10/2014 02/06/2014 Inactive Activella 0.5 mg-0.1 mg tablet RxNorm: 2978641 1 Tablet(s) PO daily TAKE 1 TABLET BY MOUTH DAILY FOR MENOPAUSAL SYMPTOM 01/08/2014 05/01/2014 Inactive gabapentin 600 mg tablet RxNorm: 377543 1.5 Tablet(s) PO TID 02/18/2014 Inactive gabapentin 600 mg tablet RxNorm: 646539 1.5 Tablet(s) PO TID 01/01/2014 Inactive hydrocodone 7.5 mg-acetaminophen 300 mg tablet RxNorm: 595185 Tablet(s) PO TAKE 1 TABLET BY MOUTH EVERY 6 HOURS NEEDED FOR PAIN 12/12/2013 01/23/2014 Inactive ( Appended: Controlled substance eRx refill - RxReferenceNumber: [id number]|1|0|1 ) Levaquin 250 mg tablet RxNorm: 174561 1 Tablet(s) PO daily 12/18/2013 Inactive 2 tabs today then 1 tab daily until gone Diflucan 150 mg tablet RxNorm: 748113 1 Tablet(s) PO daily 12/16/2013 Inactive do not stat until levaquin is completed Cartia XT 180 mg capsule,extended release RxNorm: 460572 1 CAPSULE(S) PO DAILY TAKE 1 CAPSULE BY MOUTH AT BEDTIME ..TAKE THIS IN ADDITION TO 240 MG IN THE MORNING 12/12/2013 12/06/2014 Inactive diltiazem ER (XR/XT) 240 mg capsule,extended release, controlled RxNorm: 792585 1 Capsule(s) PO daily TAKE 1 CAPSULE BY MOUTH EVERY DAY 11/28/2014 Inactive Effexor XR 37.5 mg capsule,extended release RxNorm: 397451 Capsule(s) PO TAKE 2 CAPSULES BY MOUTH EVERY MORNING AND 1 CAPSULE BY MOUTH EVERY NIGHT AT BEDTIME 12/04/2013 07/06/2014 Inactive Lasix 20 mg tablet RxNorm: 100573 TABLET(S) PO TAKE 2 TABLETS BY MOUTH EVERY MORNING AND 1 TABLET BY MOUTH AT 3 PM 12/04/2013 12/09/2014 Inactive Voltaren 1 % topical gel RxNorm: 049880 4 Gram(s) TOP QID 11/2703/26/2014 Inactive Cartia XT 180 mg capsule,extended release RxNorm: 424827 1 Capsule(s) PO daily TAKE 1 CAPSULE BY MOUTH AT BEDTIME ..TAKE THIS IN ADDITION TO 240 MG IN THE MORNING 11/27/2013 01/12/2015 Inactive Lasix 20 mg tablet RxNorm: 775866 TABLET(S) PO TAKE 2 TABLETS BY MOUTH EVERY MORNING AND 1 TABLET BY MOUTH AT 3 PM 11/26/2013 02/19/2014 Inactive colestipol 1 gram tablet RxNorm: 7381331 1 Tablet(s) PO BID TAKE 1 TABLET BY MOUTH TWICE DAILY 11/26/2013 11/20/2014 Inactive cyclobenzaprine 10 mg tablet RxNorm: 033056 Tablet(s) PO TAKE 1 TABLET BY MOUTH EVERY 8 HOURS NEEDED 11/21/20132013 Inactive Diflucan 150 mg tablet RxNorm: 673662 1 Tablet(s) PO daily TAKE 1 TABLET BY MOUTH EVERY OTHER DAY FOR 8 DOSES 11/14/201306/2013 Inactive peak flow meter-inh assist dev kit RxNorm: 1 dose Miscellaneous PRN 11/14/2013 10/27/2017 Inactive Effexor XR 37.5 mg capsule,extended release RxNorm: 049600 Capsule(s) PO TAKE 2 CAPSULES BY MOUTH EVERY MORNING AND 1 CAPSULE BY MOUTH EVERY NIGHT AT BEDTIME 11/04/2013 12/03/2013 Inactive Anusol-HC 25 mg suppository RxNorm: 4391471 1 Suppository RTL PRN one per rectum as needed, up to twice daily for hemorrhoid, no more than 7 days in a row 10/23/2013 10/22/2013 Inactive Anusol-HC 25 mg suppository RxNorm: 6270739 1 Suppository RTL PRN one per rectum as needed, up to twice daily for hemorrhoid, no more than 7 days in a row 10/23/2013 01/09/2014 Inactive Activella 0.5 mg-0.1 mg tablet RxNorm: 4047320 Tablet(s) PO TAKE 1 TABLET BY MOUTH DAILY FOR MENOPAUSAL SYMPTOM 10/21/2013 01/07/2014 Inactive cyclobenzaprine 10 mg tablet RxNorm: 269458 Tablet(s) PO TAKE 1 TABLET BY MOUTH EVERY 8 HOURS NEEDED 10/21/20132013 Inactive Lasix 20 mg tablet RxNorm: Tablet(s) PO TAKE 2 TABLETS BY MOUTH EVERY MORNING AND 1 TABLET BY MOUTH AT 3 PM 10/17/2013 02/25/2016 Inactive Bactroban 2 % topical ointment RxNorm: 736308 1 Application TOP BID 10/10/2013 11/06/2013 Inactive Zofran 4 mg tablet RxNorm: 176976 1 Tablet(s) PO Q4-6H 201303/20/2014 Inactive Bactroban 2 % topical ointment RxNorm: 908893 1 Application TOP BID 09/27/2013 10/09/2013 Inactive hydrocodone 5 mg-acetaminophen 325 mg tablet RxNorm: 742243 Tablet(s) PO TAKE 1 TABLET BY MOUTH EVERY 6 HOURS NEEDED FOR PAIN 09/26/2013 12/11/2013 Inactive ( Appended: Controlled substance eRx refill - RxReferenceNumber: [id number]|1|0|1 ) hydrocodone 5 mg-acetaminophen 325 mg tablet RxNorm: 925898 1 Tablet(s) PO Q6 PRN 09/26/2013 01/24/2014 Inactive cyclobenzaprine 10 mg tablet RxNorm: 439637 Tablet(s) PO TAKE 1 TABLET BY MOUTH EVERY 8 HOURS NEEDED 09/16/2013 No Stop Date Active omeprazole 20 mg capsule,delayed release RxNorm: 803328 Capsule(s) PO TAKE 1 CAPSULE BY MOUTH TWICE DAILY 09/02/2013 Inactive Lasix 20 mg tablet RxNorm: 325158 Tablet(s) PO TAKE 2 TABLETS BY MOUTH EVERY MORNING AND 1 TABLET BY MOUTH AT 3 PM 09/02/2013 04/10/2016 Inactive Diflucan 150 mg tablet RxNorm: 152696 Tablet(s) PO TAKE 1 TABLET BY MOUTH EVERY OTHER DAY FOR 8 DOSES 08/29/20132013 Inactive Effexor XR 37.5 mg capsule,extended release RxNorm: 923519 Capsule(s) PO TAKE 2 CAPSULES BY MOUTH EVERY MORNING AND 1 CAPSULE BY MOUTH EVERY NIGHT AT BEDTIME 08/29/2013 11/03/2013 Inactive diltiazem ER (XR/XT) 240 mg capsule,extended release, controlled RxNorm: 518843 Capsule(s) PO TAKE 1 CAPSULE BY MOUTH EVERY DAY 201312/03/2013 Inactive Xanax 0.5 mg tablet RxNorm: 407827 1 Tablet(s) PO TID PRN 11/2013 No Stop Date Active (Appended: Controlled substance eRx refill - RxReferenceNumber: [id number]| [id number]|1|0|1) colestipol 1 gram tablet RxNorm: 2921880 Tablet(s) PO TAKE 1 TABLET BY MOUTH TWICE DAILY 08/26/2013 11/25/2013 Inactive Victoza 3-Babak 0.6 mg/0.1 mL (18 mg/3 mL) subcutaneous pen injector RxNorm: 605320 1.2 Milligram(s) SQ daily 0.6 x 2 weeks then increase to 1.2mg daily 08/19/2013 12/16/2013 Inactive Synthroid 88 mcg tablet RxNorm: 149814 1 Tablet(s) PO daily 12/09/2013 Inactive Lasix 20 mg tablet RxNorm: Tablet(s) PO TAKE 2 TABLETS BY MOUTH EVERY MORNING AND 2 TABLETS BY MOUTH AT 3 PM 08/12/2013 10/18/2016 Inactive Xanax 0.5 mg tablet RxNorm: 867072 1 Tablet(s) PO TID PRN No Stop Date Active (Appended: Controlled substance eRx refill - RxReferenceNumber: [id number]| [id number]|1|0|1) Lasix 20 mg tablet RxNorm: Tablet(s) PO TAKE 2 TABLETS BY MOUTH EVERY MORNING AND 1 TABLET BY MOUTH AT 3 PM 08/07/2013 08/11/2013 Inactive Voltaren 1 % topical gel RxNorm: 095251 4 Gram(s) TOP QID 08/0111/26/2013 Inactive Zyvox 600 mg tablet RxNorm: 159730 1 Tablet(s) PO BID 201307/27/2013 Inactive please call the office is this is too expensive for the pt Zyvox 600 mg tablet RxNorm: 612617 1 Tablet(s) PO BID 201307/17/2013 Inactive hydrocodone 5 mg-acetaminophen 325 mg tablet RxNorm: 5451533 1 Tablet(s) PO Q6 PRN 07/15/2013 09/26/2013 Inactive Zofran 4 mg tablet RxNorm: 860885 1 Tablet(s) PO Q4-6H 201310/02/2013 Inactive Lasix 20 mg tablet RxNorm: 677293 Tablet(s) PO TAKE 2 TABLETS BY MOUTH EVERY MORNING AND 1 TABLET BY MOUTH AT 3 PM 07/11/2013 10/18/2016 Inactive cyclobenzaprine 10 mg tablet RxNorm: 711383 1 Tablet(s) PO Q8 PRN 06/27/2013 08/25/2013 Inactive gabapentin 600 mg tablet RxNorm: 887843 1.5 Tablet(s) PO TID 01/02/2014 Inactive Lasix 20 mg tablet RxNorm: 920735 Tablet(s) PO TAKE 2 TABLETS BY MOUTH EVERY MORNING AND 1 TABLET BY MOUTH AT 3 PM 06/17/2013 07/10/2013 Inactive hydrocodone 5 mg-acetaminophen 325 mg tablet RxNorm: 755605 1 Tablet(s) PO Q6 PRN 06/10/2013 07/14/2013 Inactive hydrocortisone 2.5 % rectal cream RxNorm: 193215 1 Suppository RTL BID PRN 06/10/2013 06/29/2013 Inactive Flexeril 10 mg tablet RxNorm: 216931 1 Tablet(s) PO Q8 PRN 06/0406/26/2013 Inactive diltiazem ER (XR/XT) 240 mg capsule,extended release, controlled RxNorm: 196868 Capsule(s) PO TAKE 1 CAPSULE BY MOUTH EVERY DAY 201310/26/2017 Inactive omeprazole 20 mg capsule,delayed release RxNorm: 304934 Capsule(s) PO TAKE 1 CAPSULE BY MOUTH TWICE DAILY 05/24/2013 Inactive colestipol 1 gram tablet RxNorm: 0253664 Tablet(s) PO TAKE 1 TABLET BY MOUTH TWICE DAILY 05/23/2013 04/21/2016 Inactive Januvia 100 mg tablet RxNorm: 842075 1 Tablet(s) PO daily 201308/18/2013 Inactive Activella 0.5 mg-0.1 mg tablet RxNorm: 255047 Tablet(s) PO TAKE 1 TABLET BY MOUTH DAILY FOR MENOPAUSAL SYMPTOM 05/17/2013 Inactive Xanax 0.5 mg tablet RxNorm: 070843 1 Tablet(s) PO TID PRN 08/06/2013 Inactive (Appended: Controlled substance eRx refill - RxReferenceNumber: [id number]| [id number]|1|0|1) Kenalog 40 mg/mL suspension for injection RxNorm: 9134749 Milliliter(s) Inj 05/07/2013 05/07/2013 Inactive levofloxacin 500 mg tablet RxNorm: 141709 1 Tablet(s) PO daily pt to take 500mg on day#1, 3, 5, 7 and 1/2 tablet on days 2, 4, 6, and 8 05/0705/14/2013 Inactive Lyrica 50 mg capsule RxNorm: 329431 1 Capsule(s) PO TID 201206/26/2013 Inactive hydrocodone 5 mg-acetaminophen 500 mg tablet RxNorm: 391796 1 Tablet(s) PO Q6 PRN 04/22/2013 06/09/2013 Inactive Zofran 4 mg tablet RxNorm: 277871 1 Tablet(s) PO Q4-6H 201207/14/2013 Inactive Zofran 4 mg tablet RxNorm: 317570 1 Tablet(s) PO Q6 PRN 04/0404/08/2013 Inactive hydrocodone 5 mg-acetaminophen 500 mg tablet RxNorm: 941738 1 Tablet(s) PO Q6 PRN 03/21/2013 04/21/2013 Inactive Diflucan 150 mg tablet RxNorm: 112559 1 Tablet(s) PO every other day 1 pill po every other day x 8 doses 03/19/201306/26 Inactive potassium chloride ER 10 mEq tablet,extended release RxNorm: 942470 1 Tablet(s) PO QDAY PRN take with lasix 03/07/201302/2014 Inactive potassium chloride ER 10 mEq tablet,extended release RxNorm: 417060 1 Tablet(s) PO QDAY PRN take with lasix 03/04/2013 Inactive fluconazole 150 mg tablet RxNorm: 455984 1 Tablet(s) PO daily 03/01/2013 02/28/2013 Inactive fluconazole 150 mg tablet RxNorm: 697186 1 Tablet(s) PO daily 03/01/2013 03/05/2013 Inactive Combivent 18 mcg-103 mcg/actuation Aerosol Inhaler RxNorm: 086612 2 Puff(s) INH QID 02/12/2013 02/12/2013 Inactive Zofran 4 mg tablet RxNorm: 012071 1 Tablet(s) PO Q6 PRN 02/1104/03/2013 Inactive Lasix 20 mg tablet RxNorm: 024903 1 Tablet(s) PO BID one pill in morning and one pill in afternoon (3pm) 02/04/2013 Inactive Xopenex HFA 45 mcg/actuation Aerosol Inhaler RxNorm: 593123 2 INH QID 01/29/2013 09/21/2015 Inactive Effexor XR 37.5 mg capsule,extended release RxNorm: 898136 2 q am and 1 at hs Capsule(s) PO TAKE 2 CAPSULES BY MOUTH EVERY MORNING AND 1 CAPSULE EVERY NIGHT AT BEDTIME 01/29/2013 02/15/2016 Inactive fluconazole 150 mg tablet RxNorm: 629211 1 Tablet(s) PO daily 01/29/2013 02/02/2013 Inactive hydrocodone 5 mg-acetaminophen 500 mg tablet RxNorm: 135060 1 Tablet(s) PO Q6 PRN 01/29/2013 03/20/2013 Inactive Effexor XR 37.5 mg capsule,extended release RxNorm: 843997 Capsule(s) PO 01/29/2013 08/28/2013 Inactive TAKE 2 CAPSULES BY MOUTH EVERY MORNING AND 1 CAPSULE EVERY NIGHT AT BEDTIME doxycycline hyclate 100 mg tablet RxNorm: 175721 1 Tablet(s) PO BID 01/01/2013 01/10/2013 Inactive doxycycline hyclate 100 mg tablet RxNorm: 255269 1 Tablet(s) PO BID 01/01/2013 12/31/2012 Inactive Synthroid 75 mcg tablet RxNorm: 718539 1 Tablet(s) PO daily 06/29/2013 Inactive Synthroid 75 mcg tablet RxNorm: 197127 1 Tablet(s) PO daily 12/31/2012 Inactive Xanax 0.5 mg tablet RxNorm: 484804 Tablet(s) PO TAKE 1/2 TO 1 TABLET BY MOUTH EVERY 8 HOURS NEEDED FOR ANXIETY 12/27/2012 05/06/2013 Inactive (Appended: Controlled substance [facility]Rx refill - [facility] [id number]|1|0|1) Lasix 20 mg tablet RxNorm: 653382 1 Tablet(s) PO daily 201202/03/2013 Inactive Santyl 250 unit/gram Topical Ointment RxNorm: 7809972 1 Application TOP daily 12/20/2012 12/29/2012 Inactive Levaquin 500 mg tablet RxNorm: 362142 1 Tablet(s) PO daily 05/201212/26/2012 Inactive acyclovir 400 mg tablet RxNorm: 206292 1 Tablet(s) PO TID 12/0312/09/2012 Inactive acyclovir 400 mg tablet RxNorm: 412273 1 Tablet(s) PO TID 12/0312/02/2012 Inactive fluconazole 150 mg tablet RxNorm: 161042 1 Tablet(s) PO daily 11/26/2012 11/30/2012 Inactive Effexor XR 37.5 mg capsule,extended release RxNorm: 088347 Capsule(s) PO TAKE 2 CAPSULES BY MOUTH EVERY MORNING AND 1 CAPSULE EVERY NIGHT AT BEDTIME 11/14/2012 01/28/2013 Inactive albuterol sulfate 1.25 mg/3 mL solution for nebulization RxNorm: 716352 3 Milliliter(s) INH TID 10/29/20122012 Inactive 1 box Cartia XT 180 mg capsule,extended release RxNorm: 288962 1 Capsule(s) PO daily TAKE 1 CAPSULE BY MOUTH AT BEDTIME ..TAKE THIS IN ADDITION TO 240 MG IN THE MORNING 10/29/2012 11/26/2013 Inactive acyclovir 800 mg tablet RxNorm: 722979 1 Tablet(s) PO BID 10/2911/04/2012 Inactive Diflucan 150 mg tablet RxNorm: 183832 1 Tablet(s) PO daily 10/14/2012 Inactive TAKE 1 TABLET BY MOUTH EVERY DAY Toprol XL 100 mg tablet,extended release RxNorm: 495249 1 Tablet(s) PO BID 10/11/2012 09/05/2013 Inactive Zithromax Z-Babak 250 mg tablet RxNorm: 347831 Tablet(s) PO UD as directed. 1 refill , please take back to back 10/05/2012 No Stop Date Active Kenalog 40 mg/mL Susp for Injection RxNorm: 3933892 1 Milliliter(s) Inj QID 09/21/2012 05/07/2013 Inactive fluconazole 150 mg tablet RxNorm: 783497 1 Tablet(s) PO every other day x 5 doses 09/12/2012 11/25/2012 Inactive levothyroxine 50 mcg tablet RxNorm: 697576 1 Tablet(s) PO daily 09/06/2012 12/31/2012 Inactive atorvastatin 40 mg tablet RxNorm: 527403 1 Tablet(s) PO daily 09/06/2012 08/31/2013 Inactive TAKE 1 TABLET BY MOUTH DAILY (THIS IS AN INCREASE IN DOSAGE) Xanax 0.5 mg tablet RxNorm: 016338 Tablet(s) PO TAKE 1/2 TO 1 TABLET BY MOUTH EVERY 8 HOURS NEEDED FOR ANXIETY 08/27/2012 12/26/2012 Inactive (Appended: Controlled substance eRx refill - RxReferenceNumber: [id number]|1|0|1) Zofran 4 mg tablet RxNorm: 070802 1 Tablet(s) PO Q6 PRN 08/1302/10/2013 Inactive Cipro 500 mg tablet RxNorm: 120508 1 Tablet(s) PO BID 201208/07/2012 Inactive Cipro 500 mg tablet RxNorm: 250050 1 Tablet(s) PO BID 201208/12/2012 Inactive Flagyl 500 mg tablet RxNorm: 084074 1 Tablet(s) PO TID 201208/12/2012 Inactive cefdinir 300 mg capsule RxNorm: 835125 1 Capsule(s) PO BID 08/201207/29/2012 Inactive nystatin 100,000 unit/mL Oral Susp RxNorm: 249415 6 Unit(s) PO QID 07/06/2012 07/15/2012 Inactive Kenalog 40 mg/mL Susp for Injection RxNorm: 4002785 1 Milliliter(s) Inj 07/06/2012 07/06/2012 Inactive Zithromax 500 mg tablet RxNorm: 8718118 1 Tablet(s) PO daily 07/10/2012 Inactive metformin 850 mg tablet RxNorm: 762426 1/2 Tablet(s) PO TID 09/201208/24/2012 Inactive TAKE 1 TABLET BY MOUTH IN THE MORNING, 1/2 TABLET AT NOON, AND 1 TABLET IN THE EVENING Lyrica 50 mg capsule RxNorm: 133760 1 Capsule(s) PO TID 201206/25/2012 Inactive Diflucan 150 mg tablet RxNorm: 647332 1 Tablet(s) PO daily 05/201206/25/2012 Inactive TAKE 1 TABLET BY MOUTH EVERY DAY Levaquin 500 mg tablet RxNorm: 018533 1 Tablet(s) PO daily 06/19/2012 Inactive Pneumovax 23 25 mcg/0.5 mL Injection RxNorm: 651355 1/2 Milliliter(s) Inj 06/07/2012 06/07/2012 Inactive metformin 850 mg tablet RxNorm: 791651 1/2 Tablet(s) PO BID 06/25/2012 Inactive TAKE 1 TABLET BY MOUTH IN THE MORNING, 1/2 TABLET AT NOON, AND 1 TABLET IN THE EVENING cefdinir 300 mg capsule RxNorm: 861793 1 Capsule(s) PO BID 02/201305/30/2012 Inactive cefdinir 300 mg capsule RxNorm: 118320 1 Capsule(s) PO BID 02/201306/06/2012 Inactive prednisone 10 mg tablets in a dose pack RxNorm: 448602 Tablet(s) PO UD 6-5-4-3-2- 1 05/31/2012 05/06/2013 Inactive Cipro 500 mg tablet RxNorm: 341840 1 Tablet(s) PO BID 201206/03/2012 Inactive Xanax 0.5 mg tablet RxNorm: 350665 Tablet(s) PO TAKE 1/2 TO 1 TABLET BY MOUTH EVERY 8 HOURS NEEDED FOR ANXIETY 05/28/2012 08/27/2012 Inactive (Appended: Controlled substance eRx refill - RxReferenceNumber: [id number]|1|0|1) Cartia XT 180 mg capsule,extended release RxNorm: 359582 Capsule(s) PO TAKE 1 CAPSULE BY MOUTH AT BEDTIME ..TAKE THIS IN ADDITION TO 240 MG IN THE MORNING 05/24/2012 10/28/2012 Inactive Diflucan 150 mg tablet RxNorm: 484819 1 Tablet(s) PO daily 06/201205/26/2012 Inactive TAKE 1 TABLET BY MOUTH EVERY DAY Cartia XT 240 mg capsule,extended release RxNorm: 167318 1 Capsule(s) PO QAM 05/23/2012 09/06/2012 Inactive in addition to 180mg q pm omeprazole 20 mg capsule,delayed release RxNorm: 543707 Capsule(s) PO TAKE 1 CAPSULE BY MOUTH TWICE DAILY 05/21/2012 Inactive diltiazem ER (XR/XT) 240 mg capsule,extended release, controlled RxNorm: 103968 1 Capsule(s) PO daily TAKE ONE CAPSULE BY MOUTH EVERY DAY 05/21/2012 05/30/2013 Inactive Toprol XL 25 mg tablet,extended release RxNorm: 716706 1 Tablet(s) PO QPM take with 50mg (1/2 tab of 100mg) each evening. Continue 100mg in the morning. 05/17/2012 05/27/2012 Inactive Activella 0.5 mg-0.1 mg tablet RxNorm: 6051347 Tablet(s) PO TAKE 1 TABLET BY MOUTH DAILY FOR MENOPAUSAL SYMPTOM 05/09/2012 05/16/2013 Inactive colestipol 1 gram tablet RxNorm: 7274853 Tablet(s) PO TAKE 1 TABLET BY MOUTH TWICE DAILY 05/08/2012 04/21/2016 Inactive Kenalog 40 mg/mL Susp for Injection RxNorm: 2804682 1 Milliliter(s) Inj 05/02/2012 05/02/2012 Inactive Xanax 0.5 mg tablet RxNorm: 396513 Tablet(s) PO 04/16/2012 05/28/2012 Inactive TAKE 1/2 TO 1 TABLET BY MOUTH EVERY 8 HOURS NEEDED FOR ANXIETY (Appended: Controlled substance eRx refill - RxReferenceNumber: [id number]|1|0|1) Diflucan 150 mg tablet RxNorm: 270333 1 Tablet(s) PO daily 05/22/2012 Inactive TAKE 1 TABLET BY MOUTH EVERY DAY Cipro 500 mg tablet RxNorm: 190009 1 Tablet(s) PO BID 201104/19/2012 Inactive Zithromax Z-Babak 250 mg tablet RxNorm: 526006 Tablet(s) PO UD 05/30/2012 Inactive metformin 850 mg tablet RxNorm: 640544 Tablet(s) PO take one pill by mouth in AM, 1/2 at noon, and 1 pill in the evening. 03/16/2012 06/06/2012 Inactive TAKE 1 TABLET BY MOUTH IN THE MORNING, 1/2 TABLET AT NOON, AND 1 TABLET IN THE EVENING Xanax 0.5 mg tablet RxNorm: 781245 Tablet(s) PO 03/05/2012 04/15/2012 Inactive TAKE 1/2 TO 1 TABLET BY MOUTH EVERY 8 HOURS NEEDED FOR ANXIETY (Appended: Controlled substance eRx refill - RxReferenceNumber: [id number]|1|0|1) potassium chloride ER 10 mEq tablet,extended release RxNorm: 928644 1 Tablet(s) PO QDAY PRN take with lasix 03/05/201204/2013 Inactive potassium chloride ER 10 mEq tablet,extended release RxNorm: 754975 1 Tablet(s) PO QDAY PRN take with lasix 02/28/2012 Inactive Lasix 20 mg tablet RxNorm: 032042 Tablet(s) PO QDAY PRN 02/2708/25/2012 Inactive doxycycline hyclate 100 mg capsule RxNorm: 968396 1 Capsule(s) PO BID 02/27/2012 03/04/2012 Inactive Effexor XR 37.5 mg capsule,extended release RxNorm: 587398 Capsule(s) PO 02/26/2012 01/28/2013 Inactive TAKE 2 CAPSULES BY MOUTH EVERY MORNING AND 1 CAPSULE EVERY NIGHT AT BEDTIME Lomotil 2.5 mg-0.025 mg tablet RxNorm: 2701351 Tablet(s) PO 07/201103/05/2012 Inactive 1 after each loose bm limit 4 per day doxycycline hyclate 100 mg capsule RxNorm: 592559 1 Capsule(s) PO BID 02/15/2012 02/21/2012 Inactive Diflucan 150 mg tablet RxNorm: 880550 Tablet(s) PO daily 201102/21/2012 Inactive TAKE 1 TABLET BY MOUTH EVERY DAY colestipol,micronized 1 gram tablet RxNorm: 1349901 Tablet(s) PO 02/06/2012 04/21/2016 Inactive TAKE 1 TABLET BY MOUTH TWICE DAILY Effexor XR 37.5 mg capsule,extended release RxNorm: 434953 Capsule(s) PO 02/06/2012 02/16/2016 Inactive TAKE 2 CAPSULES BY MOUTH EVERY MORNING AND 1 CAPSULE EVERY NIGHT AT BEDTIME potassium chloride ER 10 mEq tablet,extended release RxNorm: 517216 1 Tablet(s) PO QDAY PRN take with lasix 02/01/201212/2011 Inactive Levaquin 500 mg tablet RxNorm: 546831 1 Tablet(s) PO daily 04/201202/07/2012 Inactive Diflucan 150 mg tablet RxNorm: 536914 Tablet(s) PO 01/27/2012 02/14/2012 Inactive TAKE 1 TABLET BY MOUTH EVERY DAY Effexor XR 37.5 mg capsule,extended release RxNorm: 664040 Capsule(s) PO 01/05/2012 02/05/2012 Inactive TAKE 2 CAPSULES BY MOUTH EVERY MORNING , AND 1 CAPSULE BY MOUTH EVERY NIGHT AT BEDTIME Effexor XR 37.5 mg capsule,extended release RxNorm: 579837 Capsule(s) PO 12/29/2011 01/04/2012 Inactive TAKE 2 CAPSULES BY MOUTH EVERY MORNING , AND 1 CAPSULE BY MOUTH EVERY NIGHT AT BEDTIME Diflucan 150 mg tablet RxNorm: 071559 Tablet(s) PO 12/29/2011 04/09/2012 Inactive TAKE 1 TABLET BY MOUTH EVERY DAY Cipro 500 mg tablet RxNorm: 643803 1 Tablet(s) PO BID 201101/07/2012 Inactive Toprol XL 100 mg tablet,extended release RxNorm: 250788 Tablet(s) PO as doctor directed one tab in am and 1/2 at night 11/30/2011 10/10/2012 Inactive Phenergan 25 mg/mL Injection RxNorm: 636717 Milliliter(s) Inj 11/30/2011 11/30/2011 Inactive Toprol XL 100 mg 24 hr Tab RxNorm: 315513 1.5 Tablet(s) PO as doctor directed one tab in am and 1/2 at night 11/17/201102/2012 Inactive Xopenex HFA 45 mcg/actuation Aerosol Inhaler RxNorm: 086717 2 INH QID 11/08/2011 12/01/2012 Inactive Effexor XR 150 mg 24 hr Cap RxNorm: 048421 1 Capsule(s) PO daily 10/24/2011 01/04/2012 Inactive Xanax 0.5 mg tablet RxNorm: 554619 1/2-1 Tablet(s) PO Q8 PRN 10/20/2011 03/05/2012 Inactive levothyroxine 25 mcg tablet RxNorm: 760625 Tablet(s) PO 201109/05/2012 Inactive TAKE 1 TABLET BY MOUTH DAILY Xanax 0.5 mg Tab RxNorm: 748466 1/2-1 Tablet(s) PO Q8 PRN 09/26/2011 10/19/2011 Inactive potassium chloride ER 10 mEq Tab RxNorm: 864305 1 Tablet(s) PO daily 09/20/2011 09/24/2011 Inactive Lasix 20 mg Tab RxNorm : 037616 1 Tablet(s) PO daily 09/20/2011 09/24/2011 Inactive Xanax 0.5 mg Tab RxNorm: 688823 1/2-1 Tablet(s) PO Q8 PRN 09/12/2011 09/25/2011 Inactive Xanax 0.5 mg Tab RxNorm: 359650 1/2-1 Tablet(s) PO Q8 PRN 08/24/2011 09/11/2011 Inactive Lipitor 20 mg tablet RxNorm: 912003 Tablet(s) PO 08/22/2011 09/05/2012 Inactive TAKE 1 TABLET BY MOUTH DAILY (THIS IS AN INCREASE IN DOSAGE) Cipro 500 mg Tab RxNorm: 715089 1 Tablet(s) PO BID 201110/24/2011 Inactive Flagyl 500 mg Tab RxNorm: 950172 1 Tablet(s) PO TID 201110/24/2011 Inactive Diflucan 150 mg Tab RxNorm: 118233 1 Tablet(s) PO daily 201110/24/2011 Inactive Kenalog 40 mg/mL Susp for Injection RxNorm: 3431231 1 Milliliter(s) Inj 08/01/2011 10/24/2011 Inactive FreeStyle Lancets RxNorm: 1 test Miscellaneous TID 201107/08/2014 Inactive dispense quantity sufficient for three times daily testing for diabetes FreeStyle Test Strips RxNorm: 1 Miscellaneous BID 07/21/2011 08/13/2012 Inactive please give lancets alsodx 250.02 Xanax 0.25 mg Tab RxNorm: 941103 1 Tablet(s) PO Q8 PRN 07/06 No Stop Date Active colestipol 1 gram Tab RxNorm: 9181777 Tablet(s) PO 07/04/2011 04/21/2016 Inactive TAKE 1 TABLET BY MOUTH TWICE DAILY DIRECTED colestipol 1 gram tablet RxNorm: 0447958 1 Tablet(s) PO BID 07/03/2011 Inactive Cartia XT 180 mg capsule,extended release RxNorm: 173911 1 Capsule(s) PO QHS 06/30/2011 11/16/2011 Inactive in addition to 240mg q am venlafaxine 37.5 mg Tab RxNorm: 537427 1 Tablet(s) PO BID 06/2406/29/2011 Inactive prednisone 5 mg Tab RxNorm: 863240 Tablet(s) PO UD 2011 10/24/2011 Inactive six day taper #21 Lyrica 50 mg capsule RxNorm: 778570 1 Capsule(s) PO TID 201108/18/2011 Inactive Diflucan 150 mg tablet RxNorm: 300179 1 Tablet(s) PO daily 06/24/2011 Inactive levofloxacin 500 mg Tab RxNorm: 581525 1 Tablet(s) PO daily 08/15/2011 Inactive azithromycin 250 mg Tab RxNorm: 402118 PO 05/23/2011 06/20/2011 Inactive omeprazole 20 mg capsule,delayed release RxNorm: 001647 Capsule(s) PO 05/10/2011 05/20/2012 Inactive TAKE 1 CAPSULE BY MOUTH TWICE DAILY;Patient requests 90 day supply diltiazem ER (XR/XT) 240 mg capsule,extended release, controlled RxNorm: 161460 Capsule(s) PO 04/19/2011 05/21/2012 Inactive TAKE 1 CAPSULE BY MOUTH EVERY MORNING;Patient requests 90 day supply Kenalog 40 mg/mL Susp for Injection RxNorm: 1964999 1 Milliliter(s) Inj 04/18/2011 06/20/2011 Inactive clindamycin 300 mg Cap RxNorm: 919676 1 Capsule(s) PO BID 04/1806/20/2011 Inactive lisinopril-hydrochlorothiazide 20 mg-12.5 mg Tab RxNorm: 215653 2 Tablet(s) PO daily 04/18/2011 10/24/2011 Inactive fluconazole 150 mg Tab RxNorm: 628289 1 Tablet(s) PO daily 07/201006/20/2011 Inactive Activella 0.5 mg-0.1 mg tablet RxNorm: 8492936 Tablet(s) PO 05/201005/08/2012 Inactive TAKE 1 TABLET BY MOUTH DAILY FOR MENOPAUSAL SYMPTOM diltiazem ER (XR/XT) 240 mg Continuous Release Cap RxNorm: 362272 1 Capsule(s) PO daily 03/17/2011 03/16/2011 Inactive diltiazem ER (XR/XT) 240 mg Continuous Release Cap RxNorm: 351362 Capsule(s) PO 03/17/2011 06/20/2011 Inactive TAKE 1 CAPSULE BY MOUTH EVERY MORNING metformin 850 mg tablet RxNorm: 294500 1 Tablet(s) PO as doctor directed take one pill by mouth in AM, 1/2 at noon, and 1 pill in the evening. 01/21/2011 04/20/2011 Inactive Xopenex 1.25 mg/3 mL solution for nebulization RxNorm: 775563 3 Milliliter(s) INH Q6 PRN No Start Date Active Novolog Flexpen U-100 Insulin aspart 100 unit/mL subcutaneous RxNorm: 7002838 10 units with meals plus SSI in [...] 301-325 Lomotil 2.5 mg-0.025 mg tablet RxNorm: 5073852 Tablet(s) PO No Start Date 02/21/2012 Inactive 1 after each loose bm limit 4 per day Novolog Flexpen U-100 Insulin aspart 100 unit/mL subcutaneous RxNorm: 1196639 10 Unit(s) SQ AC No Start Date 10/26 Inactive with sliding scale-Dr Yanna Judd FlexTouch U-100 100 unit/mL (3 mL) subcutaneous insulin pen RxNorm: 3183867 40 Unit(s) SQ daily No Start Date Inactive gabapentin 600 mg tablet RxNorm: 111602 1 Tablet(s) PO TID No Start Date 06/26/2013 Inactive Effexor XR 37.5 mg capsule,extended release RxNorm: 687578 1 Capsule(s) PO BID No Start Date 10/23/2011 Inactive Levemir FlexTouch 100 unit/mL (3 mL) subcutaneous insulin pen RxNorm: 296997 50 Unit(s) SQ BID No Start Date 04/24/2017 Inactive Combivent Respimat 20 mcg-100 mcg/actuation solution for inhalation RxNorm: 3680077 1 INH QID No Start Date 05/11/2014 Inactive Xanax 0.5 mg Tab RxNorm: 578480 1/2-1 Tablet(s) PO Q8 PRN No Start Date 08/23/2011 Inactive Xopenex HFA 45 mcg/actuation Aerosol Inhaler RxNorm: 169081 2 INH QID No Start Date 11/07/2011 Inactive promethazine 25 mg tablet RxNorm: 376138 1 Tablet(s) PO Q8 as needed No Start Date 08/12/2015 Inactive colestipol 1 gram Tab RxNorm: 0102866 1 Tablet(s) PO BID No Start Date 07/03/2011 Inactive Cartia XT 240 mg capsule,extended release RxNorm: 590927 1 Capsule(s) PO QAM No Start Date 05/22/2012 Inactive in addition to 180mg q pm Lipitor 20 mg Tab RxNorm: 647751 1 Tablet(s) PO daily No Start Date 08/21/2011 Inactive FreeStyle Test Strips RxNorm: 1 Miscellaneous BID No Start Date 07/20/2011 Inactive Toujeo SoloStar U-300 Insulin 300 unit/mL (1.5 mL) subcutaneous pen RxNorm: 1434278 40 Unit(s) SQ BID No Start Date 10/26/2017 Inactive Diflucan 150 mg tablet RxNorm: 814913 1 Tablet(s) PO daily 1 pill po every other day x 8 doses No Start Date 03/18/2013 Inactive hydrocodone 5 mg-acetaminophen 500 mg tablet RxNorm: 478112 1 Tablet(s) PO Q6 PRN No Start Date 01/28/2013 Inactive Lasix 20 mg tablet RxNorm: 863421 Tablet(s) PO QDAY PRN No Start Date 02/27/2012 Inactive Promethazine VC 6.25 mg-5 mg/5 mL Syrup RxNorm: 3120458 1-2 PO Q6 PRN No Start Date 10/07/2013 Inactive promethazine 25 mg tablet RxNorm: 451160 1 Tablet(s) PO Q6 PRN No Start Date 02/09/2017 Inactive digoxin 125 mcg tablet RxNorm: 047755 1 Tablet(s) PO daily No Start Date 06/20/2017 Inactive Xanax 0.25 mg Tab RxNorm: 279007 1 Tablet(s) PO Q8 PRN No Start Date 07/05/2011 Inactive Diflucan 150 mg tablet RxNorm: 761483 1 Tablet(s) PO every other day x 4 doses No Start Date 04/09/2014 Inactive Carafate 100 mg/mL Oral Susp RxNorm: 284852 2 Teaspoon(s) PO daily No Start Date 10/24/2011 Inactive prednisone 5 mg Tab RxNorm: 174542 Tablet(s) PO UD No Start Date 06/22/2011 Inactive six day taper #21 Tessalon Perles 100 mg capsule RxNorm: 553188 2 Capsule(s) PO TID as needed No Start Date 05/16/2017 Inactive Bactroban 2 % topical ointment RxNorm: 982943 1 Application TOP BID No Start Date 09/26/2013 Inactive Phenergan 25 mg tablet RxNorm: 835927 1 Tablet(s) PO Q8 as needed nausea No Start Date 06/28/2015 Inactive flecainide 50 mg tablet RxNorm: 499827 1 Tablet(s) PO BID No Start Date 02/01/2016 Inactive Activella 0.5 mg-0.1 mg Tab RxNorm: 7446705 1 Tablet(s) PO daily No Start Date 03/21/2011 Inactive hydrocodone 10 mg-acetaminophen 325 mg tablet RxNorm: 973781 1 Tablet(s) PO Q6 as needed No Start Date 02/04/2016 Inactive lisinopril 20 mg Tab RxNorm: 148320 1 Tablet(s) PO daily No Start Date 06/20/2011 Inactive prednisone 10 mg tablets in a dose pack RxNorm: 596105 Tablet(s) PO UD 6-5-4-3-2- 1 No Start Date 05/30/2012 Inactive hydrocodone 7.5 mg-acetaminophen 325 mg tablet RxNorm: 179525 1 Tablet(s) PO Q6 PRN No Start Date 10/06/2013 Inactive hyoscyamine 0.125 mg sublingual tablet RxNorm: 9393101 1 Tablet(s) SL TID as needed No Start Date 05/16/2017 Inactive Cartia XT 180 mg 24 hr Cap RxNorm: 558073 1 Capsule(s) PO QHS No Start Date 06/29/2011 Inactive in addition to 240mg q am Zofran 4 mg tablet RxNorm: 478130 1 Tablet(s) PO Q6 PRN No Start Date 08/12/2012 Inactive omeprazole 20 mg Cap, Delayed Release RxNorm: 412620 1 Capsule(s) PO BID No Start Date 05/09/2011 Inactive venlafaxine 37.5 mg Tab RxNorm: 793458 1 Tablet(s) PO BID No Start Date 10/24/2011 Inactive Vesicare 10 mg tablet RxNorm: 825481 1 Tablet(s) PO daily No Start Date 09/28/2015 Inactive levothyroxine 25 mcg Tab RxNorm: 419773 1 Tablet(s) PO daily No Start Date 10/18/2011 Inactive Zithromax Z-Babak 250 mg tablet RxNorm: 829431 Tablet(s) PO UD No Start Date 04/01/2012 Inactive Januvia 100 mg tablet RxNorm: 413069 1 Tablet(s) PO daily No Start Date 05/22/2013 Inactive Lantus Solostar 100 unit/mL (3 mL) subcutaneous insulin pen RxNorm: 255428 Unit( s) SQ No Start Date 04/17/2017 Inactive 10 units q am and 50units at night fluconazole 150 mg tablet RxNorm: 858619 1 Tablet(s) PO every other day x 5 doses No Start Date 09/11/2012 Inactive Toprol XL 25 mg 24 hr Tab RxNorm: 132303 1 Tablet(s) PO daily No Start Date 11/16/2011 Inactive Medication Administered Medication Codes Instructions Start Date Status Kenalog 40 mg/mL suspension for injection RxNorm: 4780531 Milliliter 06/26/2015 No longer Active Kenalog 40 mg/mL suspension for injection RxNorm: 6397387 Milliliter 05/07/2013 No longer Active Kenalog 40 mg/mL Susp for Injection RxNorm: 1612087 1Milliliter 07/06/2012 No longer Active Pneumovax 23 25 mcg/0.5 mL Injection RxNorm: 168686 /2Milliliter 06/07/2012 No longer Active Kenalog 40 mg/mL Susp for Injection RxNorm: 5129819 1Milliliter 05/02/2012 No longer Active Phenergan 25 mg/mL Injection RxNorm: 702909 Milliliter 11/30/2011 No longer Active Immunizations Vaccine Codes Date Status Pneumococcal (Adult) CVX: 133 02/26/2016 completed PPD Unknown 12/25/2014 completed PPD Unknown 09/27/2013 completed Pneumococcal CVX: 33 06/07/2012 completed Pneumococcal (Adult) CVX: 33 06/07/2012 completed Assessments Condition Codes Effective Dates Generalized anxiety disorder ICD-10: F41.1 ICD-9: 300.02 04/10/2018 Essential (primary) hypertension ICD-10: I10 ICD-9: 401.1 04/10/2018 Weakness ICD-10: R53.1 ICD-9: 780.79 04/10/2018 Type 2 diabetes mellitus with hyperglycemia ICD-10: E11.65 ICD-9: 250.00 04/10/2018 Low back pain ICD-10: M54.5 ICD-9: [...] eyelid ICD-10: H00.014 ICD-9: 373.11 08/03/2017 Chronic maxillary sinusitis ICD-10: J32.0 ICD-9: 473.0 08/03/2017 Chronic obstructive pulmonary disease, unspecified ICD-10: [...] acute sinusitis ICD-10: J01.80 ICD-9: 461.9 11/10/2015 Cough ICD-10: R05 ICD-9: 786.2 11/10/2015 Acute bronchitis due to other specified [...] For Visit Effective Dates Notes diabetes mellitus 04/10/2018 gait abnormality 03/12/2018 dysuria [...] 26.2 pg 02/20/2018 Cbc With Differential Ord2 Hall% 5.7 % 02/20/2018 Cbc With Differential Ord2 Eos% 1.0 % 02/20/2018 Cbc With Differential Ord2 MCHC 30.1 pg 02/20/2018 Cbc With Differential Ord2 PLT 341 K/ul 02/20/2018 Cbc With Differential Ord2 Baso% 0.2 % 02/20/2018 Cbc With Differential Ord2 RDW 16.7 % 02/20/2018 Cbc With Differential Ord2 Neut ABS# 6.41 K/ul 02/20/2018 Cbc With Differential Ord2 Lymph ABS# 1.61 K/ul 02/20/2018 Cbc With Differential Ord2 Hall ABS# 0.5 K/ul 02/20/2018 Cbc With Differential Ord2 Eos ABS# 0.1 K/ul 02/20/2018 Cbc With Differential Ord2 Baso ABS# 0.0 K/ul 02/20/2018 Comp Metabolic Mfr014 NA 134 mEq/L 02/20/2018 Comp Metabolic Oev450 K 3.9 mEq/L 02/20/2018 Comp Metabolic Rki225 CL 90 mEq/L 02/20/2018 Comp Metabolic Hln515 CO2 32.0 mEq/L 02/20/2018 Comp Metabolic Ygb571 ANION GAP 16 02/20/2018 Comp Metabolic Adz594 GLUCOSE 287 mg/dL 02/20/2018 Comp Metabolic Tjf811 Creat 0.8 mg/dL 02/20/2018 Comp Metabolic Wnl236 eGFR 72 ml/min/1.73m2 02/20/2018 Comp Metabolic Mfa137 BUN 13 mg/dL 02/20/2018 Comp Metabolic Sah666 B/C Ratio 15.5 Ratio 02/20/2018 Comp Metabolic Ubv789 CALCIUM 9.0 mg/dL 02/20/2018 Comp Metabolic Rne795 ALK PHOS 120 U/L 02/20/2018 Comp Metabolic Anu918 AST(SGOT) 21 U/L 02/20/2018 Comp Metabolic Ira388 ALT(SGPT) 17 U/L 02/20/2018 Comp Metabolic Lbq275 BILI T 0.4 mg/dL 02/20/2018 Comp Metabolic Gcf624 ALBUMIN 3.8 g/dL 02/20/2018 Comp Metabolic Xgi747 TPRO 6.9 g/dL 02/20/2018 Comp Metabolic Ytu923 GLOB 3.1 g/dL 02/20/2018 Comp Metabolic Ukx877 A/G Ratio 1.3 Ratio 02/20/2018 Comp Metabolic Smz988 Osmo 279 mOsmo 02/20/2018 Vitamin D 25 Oh Txk9191 VITAMIN D, 25 HYDROXY 26.48 ng/mL Digoxin Ord9 DIGOXIN 0.7 NG/ML 02/20/2018 Culture Urine [id number] URINE CULTURE SEE NOTES 12/01/2017 Urine Culture Ucult Complete >100,000 col/ml aerobic growth sent to ref lab 11/29/2017 Comp Metabolic Fkv392 NA 135 mEq/L 08/21/2017 Comp Metabolic Hbk482 K 4.6 mEq/L 08/21/2017 Comp Metabolic Afp790 CL 92 mEq/L 08/21/2017 Comp Metabolic Hvd100 CO2 32.0 mEq/L 08/21/2017 Comp Metabolic Ddo704 ANION GAP 16 08/21/2017 Comp Metabolic Gkw971 GLUCOSE 298 mg/dL 08/21/2017 Comp Metabolic Vfc546 Creat 1.1 mg/dL 08/21/2017 Comp Metabolic Qmw866 eGFR 54 ml/min/1.73m2 08/21/2017 Comp Metabolic Bco353 BUN 22 mg/dL 08/21/2017 Comp Metabolic Ioe937 B/C Ratio 20.6 Ratio 08/21/2017 Comp Metabolic Det830 CALCIUM 9.3 mg/dL 08/21/2017 Comp Metabolic Vsx399 ALK PHOS 145 U/L 08/21/2017 Comp Metabolic Jis732 AST(SGOT) 31 U/L 08/21/2017 Comp Metabolic Oqt809 ALT(SGPT) 19 U/L 08/21/2017 Comp Metabolic Vry489 BILI T 0.3 mg/dL 08/21/2017 Comp Metabolic Ikf007 ALBUMIN 3.8 g/dL 08/21/2017 Comp Metabolic Ksx037 TPRO 7.1 g/dL 08/21/2017 Comp Metabolic Nak079 GLOB 3.3 g/dL 08/21/2017 Comp Metabolic Dei514 A/G Ratio 1.2 Ratio 08/21/2017 Comp Metabolic Hnu838 Osmo 285 mOsmo 08/21/2017 Cbc With Differential Ord2 WBC 9.80 K/ul 08/18/2017 Cbc With Differential Ord2 RBC 4.30 M/ul 08/18/2017 Cbc With Differential Ord2 HGB 12.0 g/dl 08/18/2017 Cbc With Differential Ord2 Neut% 69.1 % 08/18/2017 Cbc With Differential Ord2 HCT 37.9 % 08/18/2017 Cbc With Differential Ord2 MCV 88.1 fl 08/18/2017 Cbc With Differential Ord2 Lymph% 20.9 % 08/18/2017 Cbc With Differential Ord2 MCH 27.9 pg 08/18/2017 Cbc With Differential Ord2 Hall% 6.9 % 08/18/2017 Cbc With Differential Ord2 MCHC 31.7 pg 08/18/2017 Cbc With Differential Ord2 Eos% 2.7 % 08/18/2017 Cbc With Differential Ord2 PLT 337 K/ul 08/18/2017 Cbc With Differential Ord2 Baso% 0.4 % 08/18/2017 Cbc With Differential Ord2 Neut ABS# 6.77 K/ul 08/18/2017 Cbc With Differential Ord2 RDW 15.4 % 08/18/2017 Cbc With Differential Ord2 Lymph ABS# 2.05 K/ul 08/18/2017 Cbc With Differential Ord2 Hall ABS# 0.7 K/ul 08/18/2017 Cbc With Differential Ord2 Eos ABS# 0.3 K/ul 08/18/2017 Cbc With Differential Ord2 Baso ABS# 0.0 K/ul 08/18/2017 %Hba1C Qxu727 % HbA1c 74852-5 11.5 % 06/13/2017 %Hba1C Xkl911 Gluc Ave 283 mg/dL 06/13/2017 Cbc With Differential Ord2 WBC 10.57 K/ul 03/27/2017 Cbc With Differential Ord2 RBC 4.31 M/ul 03/27/2017 Cbc With Differential Ord2 HGB 11.9 g/dl 03/27/2017 Cbc With Differential Ord2 Neut% 70.7 % 03/27/2017 Cbc With Differential Ord2 HCT 38.6 % 03/27/2017 Cbc With Differential Ord2 MCV 89.6 fl 03/27/2017 Cbc With Differential Ord2 Lymph% 20.0 % 03/27/2017 Cbc With Differential Ord2 Hall% 7.2 % 03/27/2017 Cbc With Differential Ord2 MCH 27.6 pg 03/27/2017 Cbc With Differential Ord2 MCHC 30.8 pg 03/27/2017 Cbc With Differential Ord2 Eos% 1.7 % 03/27/2017 Cbc With Differential Ord2 Baso% 0.4 % 03/27/2017 Cbc With Differential Ord2 PLT 365 K/ul 03/27/2017 Cbc With Differential Ord2 Neut ABS# 7.48 K/ul 03/27/2017 Cbc With Differential Ord2 RDW 14.9 % 03/27/2017 Cbc With Differential Ord2 Lymph ABS# 2.11 K/ul 03/27/2017 Cbc With Differential Ord2 Hall ABS# 0.8 K/ul 03/27/2017 Cbc With Differential Ord2 Eos ABS# 0.2 K/ul 03/27/2017 Cbc With Differential Ord2 Baso ABS# 0.0 K/ul 03/27/2017 Digoxin Ord9 DIGOXIN 0.5 NG/ML 03/27/2017 Comp Metabolic Ydg725 NA 136 mEq/L 03/27/2017 Comp Metabolic Wjo878 K 4.1 mEq/L 03/27/2017 Comp Metabolic Mzx241 CL 90 mEq/L 03/27/2017 Comp Metabolic Agj037 CO2 34.0 mEq/L 03/27/2017 Comp Metabolic Zin901 ANION GAP 16 03/27/2017 Comp Metabolic Cuq415 GLUCOSE 325 mg/dL 03/27/2017 Comp Metabolic Dbi759 Creat 1.0 mg/dL 03/27/2017 Comp Metabolic Tcy665 eGFR 62 ml/min/1.73m2 03/27/2017 Comp Metabolic Pqz763 BUN 15 mg/dL 03/27/2017 Comp Metabolic Pfv964 B/C Ratio 15.8 Ratio 03/27/2017 Comp Metabolic Yxn079 CALCIUM 9.5 mg/dL 03/27/2017 Comp Metabolic Rho141 ALK PHOS 159 U/L 03/27/2017 Comp Metabolic Xld141 AST(SGOT) 57 U/L 03/27/2017 Comp Metabolic Bef381 ALT(SGPT) 32 U/L 03/27/2017 Comp Metabolic Lal519 BILI T 0.4 mg/dL 03/27/2017 Comp Metabolic Uxn107 ALBUMIN 4.3 g/dL 03/27/2017 Comp Metabolic Awx049 TPRO 7.3 g/dL 03/27/2017 Comp Metabolic Btk004 GLOB 3.0 g/dL 03/27/2017 Comp Metabolic Lgk905 A/G Ratio 1.4 Ratio 03/27/2017 Comp Metabolic Ggk096 Osmo 285 mOsmo 03/27/2017 Magnesium Ord90 Mag 2.4 mg/dL 02/27/2017 Comp Metabolic Nqc107 NA 138 mEq/L 02/27/2017 Comp Metabolic Bur356 K 4.2 mEq/L 02/27/2017 Comp Metabolic Stp366 CL 91 mEq/L 02/27/2017 Comp Metabolic Zvo912 CO2 36.0 mEq/L 02/27/2017 Comp Metabolic Aqv235 ANION GAP 15 02/27/2017 Comp Metabolic Ysr184 GLUCOSE 297 mg/dL 02/27/2017 Comp Metabolic Oig963 Creat 0.9 mg/dL 02/27/2017 Comp Metabolic Fnz514 eGFR 71 ml/min/1.73m2 02/27/2017 Comp Metabolic Qoa200 BUN 12 mg/dL 02/27/2017 Comp Metabolic Pch039 B/C Ratio 14.1 Ratio 02/27/2017 Comp Metabolic Zof056 CALCIUM 9.0 mg/dL 02/27/2017 Comp Metabolic Htd458 ALK PHOS 146 U/L 02/27/2017 Comp Metabolic Rlf949 AST(SGOT) 28 U/L 02/27/2017 Comp Metabolic Hwz048 ALT(SGPT) 12 U/L 02/27/2017 Comp Metabolic Fap635 BILI T 0.3 mg/dL 02/27/2017 Comp Metabolic Coq918 ALBUMIN 3.8 g/dL 02/27/2017 Comp Metabolic Ita994 TPRO 6.6 g/dL 02/27/2017 Comp Metabolic Pfb634 GLOB 2.8 g/dL 02/27/2017 Comp Metabolic Gda538 A/G Ratio 1.3 Ratio 02/27/2017 Comp Metabolic Pjm140 Osmo 286 mOsmo 02/27/2017 Digoxin Ord9 DIGOXIN <0.2 NG/ML 02/14/2017 Comp Metabolic Fxj727 NA 138 mEq/L 02/14/2017 Comp Metabolic Lxa527 K 3.5 mEq/L 02/14/2017 Comp Metabolic Eiz670 CL 95 mEq/L 02/14/2017 Comp Metabolic Ydb166 CO2 29.0 mEq/L 02/14/2017 Comp Metabolic Bmt115 ANION GAP 18 02/14/2017 Comp Metabolic Tga956 GLUCOSE 254 mg/dL 02/14/2017 Comp Metabolic Igr571 Creat 1.0 mg/dL 02/14/2017 Comp Metabolic Dwp604 eGFR 62 ml/min/1.73m2 02/14/2017 Comp Metabolic Tjh937 BUN 14 mg/dL 02/14/2017 Comp Metabolic Cuz897 B/C Ratio 14.6 Ratio 02/14/2017 Comp Metabolic Gsv843 CALCIUM 8.6 mg/dL 02/14/2017 Comp Metabolic Oje653 ALK PHOS 155 U/L 02/14/2017 Comp Metabolic Wtx789 AST(SGOT) 42 U/L 02/14/2017 Comp Metabolic Iyj302 ALT(SGPT) 28 U/L 02/14/2017 Comp Metabolic Lxf537 BILI T 0.3 mg/dL 02/14/2017 Comp Metabolic Otl525 ALBUMIN 3.6 g/dL 02/14/2017 Comp Metabolic Gvf339 TPRO 6.2 g/dL 02/14/2017 Comp Metabolic Uvd451 GLOB 2.6 g/dL 02/14/2017 Comp Metabolic Aic040 A/G Ratio 1.4 Ratio 02/14/2017 Comp Metabolic Zai991 Osmo 285 mOsmo 02/14/2017 Vitamin D 25 Oh Kla0220 VITAMIN D, 25 HYDROXY 8.99 ng/mL Tsh Ord6 hTSH II 3.30 uIU/mL 01/16/2017 Cbc With Differential Ord2 WBC 8.12 K/ul 01/16/2017 Cbc With Differential Ord2 RBC 4.32 M/ul 01/16/2017 Cbc With Differential Ord2 HGB 12.1 g/dl 01/16/2017 Cbc With Differential Ord2 Neut% 73.2 % 01/16/2017 Cbc With Differential Ord2 HCT 38.7 % 01/16/2017 Cbc With Differential Ord2 Lymph% 17.5 % 01/16/2017 Cbc With Differential Ord2 MCV 89.6 fl 01/16/2017 Cbc With Differential Ord2 MCH 28.0 pg 01/16/2017 Cbc With Differential Ord2 Hall% 7.3 % 01/16/2017 Cbc With Differential Ord2 [...] 1.42 K/ul 01/16/2017 Cbc With Differential Ord2 Hall ABS# 0.6 K/ul 01/16/2017 Cbc With Differential Ord2 Eos ABS# 0.1 K/ul 01/16/2017 Cbc With Differential Ord2 Baso ABS# 0.0 K/ul 01/16/2017 Sed Rate Ord21 ESR 33 mm/hr 01/16/2017 C-Reactive Protein Qnt Crqnt CRP 3.3 mg/dl 01/16/2017 Free T4 Pct203 FREE T4 0.81 ng/dL 01/16/2017 %Hba1C Zpm606 % HbA1c 84427-8 12.4 % 01/16/2017 %Hba1C Njt922 Gluc Ave 309 mg/dL 01/16/2017 Comp Metabolic Hpo516 NA 134 mEq/L 01/16/2017 Comp Metabolic Wzh149 K 4.0 mEq/L 01/16/2017 Comp Metabolic Rjw705 CL 89 mEq/L 01/16/2017 Comp Metabolic Aqe004 CO2 30.0 mEq/L 01/16/2017 Comp Metabolic Kut507 ANION GAP 19 01/16/2017 Comp Metabolic Hdb179 GLUCOSE 496 Result Verified By Repeat Analysis mg/dL 01/16/2017 Comp Metabolic Kgf151 Creat 0.8 mg/dL 01/16/2017 Comp Metabolic Fyz106 eGFR 73 ml/min/1.73m2 01/16/2017 Comp Metabolic Aai558 BUN 13 mg/dL 01/16/2017 Comp Metabolic Mqv619 B/C Ratio 15.7 Ratio 01/16/2017 Comp Metabolic Fjw115 CALCIUM 8.8 mg/dL 01/16/2017 Comp Metabolic Kcb748 ALK PHOS 171 U/L 01/16/2017 Comp Metabolic Rff553 AST(SGOT) 54 U/L 01/16/2017 Comp Metabolic Jlm056 ALT(SGPT) 32 U/L 01/16/2017 Comp Metabolic Tjf130 BILI T 0.3 mg/dL 01/16/2017 Comp Metabolic Dgw815 ALBUMIN 3.9 g/dL 01/16/2017 Comp Metabolic Cye883 TPRO 6.5 g/dL 01/16/2017 Comp Metabolic Khi807 GLOB 2.6 g/dL 01/16/2017 Comp Metabolic Hdz391 A/G Ratio 1.5 Ratio 01/16/2017 Comp Metabolic Yws662 Osmo 290 mOsmo 01/16/2017 Manual Differential Ord52 D-Neutr 62 % 09/14/2016 Manual Differential Ord52 D-Hall 1 % 09/14/2016 Manual Differential Ord52 D-Lymph 34 % 09/14/2016 Manual Differential Ord52 D-Eos 2 % 09/14/2016 Manual Differential Ord52 D-Mora 1 % 09/14/2016 Comp Metabolic Rsg689 NA 135 mEq/L 09/14/2016 Comp Metabolic Jkx896 K 5.2 mEq/L 09/14/2016 Comp Metabolic Ftp539 CL 93 mEq/L 09/14/2016 Comp Metabolic Lxr890 CO2 26.0 mEq/L 09/14/2016 Comp Metabolic Stk785 ANION GAP 21 09/14/2016 Comp Metabolic Bhr433 GLUCOSE 326 mg/dL 09/14/2016 Comp Metabolic Zlc569 Creat 1.0 mg/dL 09/14/2016 Comp Metabolic Hcv345 eGFR 57 ml/min/1.73m2 09/14/2016 Comp Metabolic Ijv756 BUN 16 mg/dL 09/14/2016 Comp Metabolic Rxd139 B/C Ratio 15.5 Ratio 09/14/2016 Comp Metabolic Loe574 CALCIUM 9.2 mg/dL 09/14/2016 Comp Metabolic Jqh121 ALK PHOS 160 U/L 09/14/2016 Comp Metabolic Aej696 AST(SGOT) 49 U/L 09/14/2016 Comp Metabolic Umo573 ALT(SGPT) 32 U/L 09/14/2016 Comp Metabolic Soz540 BILI T 0.4 mg/dL 09/14/2016 Comp Metabolic Soi636 ALBUMIN 4.0 g/dL 09/14/2016 Comp Metabolic Hjp080 TPRO 7.3 g/dL 09/14/2016 Comp Metabolic Nhf866 GLOB 3.3 g/dL 09/14/2016 Comp Metabolic Pnl039 A/G Ratio 1.2 Ratio 09/14/2016 Comp Metabolic Ivj003 Osmo 284 mOsmo 09/14/2016 Cbc With Differential Ord2 WBC 10.58 K/ul 09/14/2016 Cbc With Differential Ord2 RBC 4.75 M/ul 09/14/2016 Cbc With Differential Ord2 HGB 13.4 g/dl 09/14/2016 Cbc With Differential Ord2 Neut% 69.6 % 09/14/2016 Cbc With Differential Ord2 HCT 41.3 % 09/14/2016 Cbc With Differential Ord2 MCV 86.9 fl 09/14/2016 Cbc With Differential Ord2 Lymph% 19.8 % 09/14/2016 Cbc With Differential Ord2 MCH 28.2 pg 09/14/2016 Cbc With Differential Ord2 Hall% 6.2 % 09/14/2016 Cbc With Differential Ord2 Eos% 1.8 % 09/14/2016 Cbc With Differential Ord2 MCHC 32.4 pg 09/14/2016 Cbc With Differential Ord2 PLT 297 K/ul 09/14/2016 Cbc With Differential Ord2 Baso% 2.6 % 09/14/2016 Cbc With Differential Ord2 RDW 16.8 % 09/14/2016 Cbc With Differential Ord2 Neut ABS# 7.37 K/ul 09/14/2016 Cbc With Differential Ord2 Lymph ABS# 2.09 K/ul 09/14/2016 Cbc With Differential Ord2 Hall ABS# 0.7 K/ul 09/14/2016 Cbc With Differential Ord2 Eos ABS# 0.2 K/ul 09/14/2016 Cbc With Differential Ord2 Baso ABS# 0.3 K/ul 09/14/2016 %Hba1C Lxt019 % HbA1c 58594-1 10.7 % 09/14/2016 %Hba1C Udv781 Gluc Ave 260 mg/dL 09/14/2016 Comp Metabolic Upc430 NA 134 mEq/L 08/10/2016 Comp Metabolic Lyc270 K 5.0 mEq/L 08/10/2016 Comp Metabolic Xok422 CL 91 mEq/L 08/10/2016 Comp Metabolic Vna800 CO2 29.0 mEq/L 08/10/2016 Comp Metabolic Efi816 ANION GAP 19 08/10/2016 Comp Metabolic Kow978 GLUCOSE 291 mg/dL 08/10/2016 Comp Metabolic Myt181 Creat 0.9 mg/dL 08/10/2016 Comp Metabolic Naa841 eGFR 68 ml/min/1.73m2 08/10/2016 Comp Metabolic Peb149 BUN 20 mg/dL 08/10/2016 Comp Metabolic Nyb804 B/C Ratio 22.7 Ratio 08/10/2016 Comp Metabolic Ygp995 CALCIUM 9.7 mg/dL 08/10/2016 Comp Metabolic Cgb652 ALK PHOS 144 U/L 08/10/2016 Comp Metabolic Lnq622 AST(SGOT) 62 U/L 08/10/2016 Comp Metabolic Gxe439 ALT(SGPT) 37 U/L 08/10/2016 Comp Metabolic Jjc737 BILI T 0.3 mg/dL 08/10/2016 Comp Metabolic Bsk171 ALBUMIN 4.3 g/dL 08/10/2016 Comp Metabolic Jqx466 TPRO 7.3 g/dL 08/10/2016 Comp Metabolic Vwh602 GLOB 3.0 g/dL 08/10/2016 Comp Metabolic Kjg881 A/G Ratio 1.5 Ratio 08/10/2016 Comp Metabolic Lbq403 Osmo 282 mOsmo 08/10/2016 Free T4 Ysc876 FREE T4 0.89 ng/dL 08/09/2016 Tsh Ord6 hTSH II 4.06 uIU/mL 08/09/2016 Cbc With Differential Ord2 WBC 13.89 K/ul 08/09/2016 Cbc With Differential Ord2 RBC 5.05 M/ul 08/09/2016 Cbc With Differential Ord2 HGB 13.7 g/dl 08/09/2016 Cbc With Differential Ord2 Neut% 75.8 % 08/09/2016 Cbc With Differential Ord2 HCT 43.7 % 08/09/2016 Cbc With Differential Ord2 MCV 86.5 fl 08/09/2016 Cbc With Differential Ord2 Lymph% 17.7 % 08/09/2016 Cbc With Differential Ord2 Hall% 5.4 % 08/09/2016 Cbc With Differential Ord2 MCH 27.1 pg 08/09/2016 Cbc With Differential Ord2 Eos% 0.9 % 08/09/2016 Cbc With Differential Ord2 MCHC 31.4 pg 08/09/2016 Cbc With Differential Ord2 Baso% 0.2 % 08/09/2016 Cbc With Differential Ord2 PLT 493 K/ul 08/09/2016 Cbc With Differential Ord2 Neut ABS# 10.52 K/ul 08/09/2016 Cbc With Differential Ord2 RDW 18.7 % 08/09/2016 Cbc With Differential Ord2 Lymph ABS# 2.46 K/ul 08/09/2016 Cbc With Differential Ord2 Hall ABS# 0.8 K/ul 08/09/2016 Cbc With Differential Ord2 Eos ABS# 0.1 K/ul 08/09/2016 Cbc With Differential Ord2 Baso ABS# 0.0 K/ul 08/09/2016 Cbc With Differential Ord2 WBC 10.00 K/ul 04/20/2016 Cbc With Differential Ord2 RBC 4.43 M/ul 04/20/2016 Cbc With Differential Ord2 HGB 12.1 g/dl 04/20/2016 Cbc With Differential Ord2 Neut% 65.2 % 04/20/2016 Cbc With Differential Ord2 HCT 38.7 % 04/20/2016 Cbc With Differential Ord2 MCV 87.4 fl 04/20/2016 Cbc With Differential Ord2 Lymph% 26.3 % 04/20/2016 Cbc With Differential Ord2 MCH 27.3 pg 04/20/2016 Cbc With Differential Ord2 Hall% 6.3 % 04/20/2016 Cbc With Differential Ord2 [...] 2.63 K/ul 04/20/2016 Cbc With Differential Ord2 Hall ABS# 0.6 K/ul 04/20/2016 Cbc With Differential Ord2 Eos ABS# 0.2 K/ul 04/20/2016 Cbc With Differential Ord2 Baso ABS# 0.0 K/ul 04/20/2016 Comp Metabolic Kia001 NA 133 mEq/L 04/11/2016 Comp Metabolic Azi041 K 4.1 mEq/L 04/11/2016 Comp Metabolic Jrw057 CL 92 mEq/L 04/11/2016 Comp Metabolic Rpi225 CO2 30.0 mEq/L 04/11/2016 Comp Metabolic Vce259 ANION GAP 15 04/11/2016 Comp Metabolic Znq549 GLUCOSE 414 mg/dL 04/11/2016 Comp Metabolic Gxd993 Creat 0.9 mg/dL 04/11/2016 Comp Metabolic Uhm849 eGFR 65 ml/min/1.73m2 04/11/2016 Comp Metabolic Ham406 BUN 22 mg/dL 04/11/2016 Comp Metabolic Xql089 B/C Ratio 23.9 Ratio 04/11/2016 Comp Metabolic Few965 CALCIUM 9.2 mg/dL 04/11/2016 Comp Metabolic Dgq850 ALK PHOS 145 U/L 04/11/2016 Comp Metabolic Mzo089 AST(SGOT) 22 U/L 04/11/2016 Comp Metabolic Iyr813 ALT(SGPT) 21 U/L 04/11/2016 Comp Metabolic Cnw201 BILI T 0.3 mg/dL 04/11/2016 Comp Metabolic Cwf431 ALBUMIN 3.9 g/dL 04/11/2016 Comp Metabolic Fbs370 TPRO 6.8 g/dL 04/11/2016 Comp Metabolic Vvf493 GLOB 3.0 g/dL 04/11/2016 Comp Metabolic Imc821 A/G Ratio 1.3 Ratio 04/11/2016 Comp Metabolic Mcl320 Osmo 287 mOsmo 04/11/2016 Cbc With Differential Ord2 WBC 9.53 K/ul 04/11/2016 Cbc With Differential Ord2 RBC 4.42 M/ul 04/11/2016 Cbc With Differential Ord2 HGB 12.2 g/dl 04/11/2016 Cbc With Differential Ord2 Neut% 68.8 % 04/11/2016 Cbc With Differential Ord2 HCT 39.3 % 04/11/2016 Cbc With Differential Ord2 Lymph% 21.9 % 04/11/2016 Cbc With Differential Ord2 MCV 88.9 fl 04/11/2016 Cbc With Differential Ord2 Hall% 6.9 % 04/11/2016 Cbc With Differential Ord2 MCH 27.6 pg 04/11/2016 Cbc With Differential Ord2 Eos% 2.1 % 04/11/2016 Cbc With Differential Ord2 MCHC 31.0 pg 04/11/2016 Cbc With Differential Ord2 Baso% 0.3 % 04/11/2016 Cbc With Differential Ord2 PLT 307 K/ul 04/11/2016 Cbc With Differential Ord2 RDW 15.1 % 04/11/2016 Cbc With Differential Ord2 Neut ABS# 6.55 K/ul 04/11/2016 Cbc With Differential Ord2 Lymph ABS# 2.09 K/ul 04/11/2016 Cbc With Differential Ord2 Hall ABS# 0.7 K/ul 04/11/2016 Cbc With Differential Ord2 Eos ABS# 0.2 K/ul 04/11/2016 Cbc With Differential Ord2 Baso ABS# 0.0 K/ul 04/11/2016 Comp Metabolic Qly399 NA 136 mEq/L 02/26/2016 Comp Metabolic Pwg197 K 3.9 mEq/L 02/26/2016 Comp Metabolic Axr761 CL 95 mEq/L 02/26/2016 Comp Metabolic Tlp024 CO2 29.0 mEq/L 02/26/2016 Comp Metabolic Bom484 ANION GAP 16 02/26/2016 Comp Metabolic Wta684 GLUCOSE 277 mg/dL 02/26/2016 Comp Metabolic Ije902 Creat 0.7 mg/dL 02/26/2016 Comp Metabolic Epv965 eGFR 88 ml/min/1.73m2 02/26/2016 Comp Metabolic Vjc231 BUN 11 mg/dL 02/26/2016 Comp Metabolic Yfj490 B/C Ratio 15.5 Ratio 02/26/2016 Comp Metabolic Vms315 CALCIUM 8.8 mg/dL 02/26/2016 Comp Metabolic Mhg380 ALK PHOS 119 U/L 02/26/2016 Comp Metabolic Dqe388 AST(SGOT) 25 U/L 02/26/2016 Comp Metabolic Pzr620 ALT(SGPT) 20 U/L 02/26/2016 Comp Metabolic Zli517 BILI T 0.3 mg/dL 02/26/2016 Comp Metabolic Ino293 ALBUMIN 3.8 g/dL 02/26/2016 Comp Metabolic Ome574 TPRO 6.6 g/dL 02/26/2016 Comp Metabolic Zzo610 GLOB 2.8 g/dL 02/26/2016 Comp Metabolic Sbb225 A/G Ratio 1.3 Ratio 02/26/2016 Comp Metabolic Npu646 Osmo 281 mOsmo 02/26/2016 Cbc With Differential Ord2 WBC 12.43 K/ul 02/26/2016 Cbc With Differential Ord2 RBC 4.06 M/ul 02/26/2016 Cbc With Differential Ord2 HGB 12.0 g/dl 02/26/2016 Cbc With Differential Ord2 Neut% 69.4 % 02/26/2016 Cbc With Differential Ord2 HCT 38.4 % 02/26/2016 Cbc With Differential Ord2 MCV 94.6 fl 02/26/2016 Cbc With Differential Ord2 Lymph% 22.4 % 02/26/2016 Cbc With Differential Ord2 Hall% 6.4 % 02/26/2016 Cbc With Differential Ord2 MCH 29.6 pg 02/26/2016 Cbc With Differential Ord2 MCHC 31.3 pg 02/26/2016 Cbc With Differential Ord2 Eos% 1.4 % 02/26/2016 Cbc With Differential Ord2 Baso% 0.4 % 02/26/2016 Cbc With Differential Ord2 PLT 371 K/ul 02/26/2016 Cbc With Differential Ord2 RDW 15.1 % 02/26/2016 Cbc With Differential Ord2 Neut ABS# 8.63 K/ul 02/26/2016 Cbc With Differential Ord2 Lymph ABS# 2.78 K/ul 02/26/2016 Cbc With Differential Ord2 Hall ABS# 0.8 K/ul 02/26/2016 Cbc With Differential Ord2 Eos ABS# 0.2 K/ul 02/26/2016 Cbc With Differential Ord2 Baso ABS# 0.1 K/ul 02/26/2016 %Hba1C Lkz090 % HbA1c 20777-4 9.6 % 02/26/2016 %Hba1C Lqd696 Gluc Ave 229 mg/dL 02/26/2016 Comp Metabolic Wxp404 NA 138 mEq/L 11/10/2015 Comp Metabolic Khp195 K 4.5 mEq/L 11/10/2015 Comp Metabolic Mua645 CL 99 mEq/L 11/10/2015 Comp Metabolic Zit662 CO2 34.0 mEq/L 11/10/2015 Comp Metabolic Pdq932 ANION GAP 10 11/10/2015 Comp Metabolic Fxd899 GLUCOSE 167 mg/dL 11/10/2015 Comp Metabolic Ere329 Creat 0.8 mg/dL 11/10/2015 Comp Metabolic Cgv056 eGFR 78 ml/min/1.73m2 11/10/2015 Comp Metabolic Lpe304 BUN 22 mg/dL 11/10/2015 Comp Metabolic Ymh710 B/C Ratio 27.8 Ratio 11/10/2015 Comp Metabolic Lci995 CALCIUM 8.5 mg/dL 11/10/2015 Comp Metabolic Lnj257 ALK PHOS 130 U/L 11/10/2015 Comp Metabolic Zng809 AST(SGOT) 56 U/L 11/10/2015 Comp Metabolic Tlc628 ALT(SGPT) 51 U/L 11/10/2015 Comp Metabolic Tah924 BILI T 0.5 mg/dL 11/10/2015 Comp Metabolic Drn158 ALBUMIN 3.5 g/dL 11/10/2015 Comp Metabolic Jso110 TPRO 5.8 g/dL 11/10/2015 Comp Metabolic Gbm710 GLOB 2.3 g/dL 11/10/2015 Comp Metabolic Lql376 A/G Ratio 1.5 Ratio 11/10/2015 Comp Metabolic Yyf069 Osmo 283 mOsmo 11/10/2015 Cbc With Differential Ord2 WBC 11.14 K/ul 11/10/2015 Cbc With Differential Ord2 RBC 4.35 M/ul 11/10/2015 Cbc With Differential Ord2 HGB 12.2 g/dl 11/10/2015 Cbc With Differential Ord2 Neut% 73.7 % 11/10/2015 Cbc With Differential Ord2 HCT 40.5 % 11/10/2015 Cbc With Differential Ord2 Lymph% 17.2 % 11/10/2015 Cbc With Differential Ord2 MCV 93.1 fl 11/10/2015 Cbc With Differential Ord2 Hall% 7.7 % 11/10/2015 Cbc With Differential Ord2 [...] 1.92 K/ul 11/10/2015 Cbc With Differential Ord2 Hall ABS# 0.9 K/ul 11/10/2015 Cbc With Differential [...] 95.4 fl 08/11/2015 Cbc With Differential Ord2 Hall% 8.1 % 08/11/2015 Cbc With Differential Ord2 MCH 28.6 pg 08/11/2015 Cbc With Differential Ord2 MCHC 30.0 pg 08/11/2015 Cbc With Differential Ord2 Eos% 1.0 % 08/11/2015 Cbc With Differential Ord2 Baso% 0.3 % 08/11/2015 Cbc With Differential Ord2 PLT 442 K/ul 08/11/2015 Cbc With Differential Ord2 RDW 15.5 % 08/11/2015 Cbc With Differential Ord2 Neut ABS# 7.54 K/ul 08/11/2015 Cbc With Differential Ord2 Lymph ABS# 2.93 K/ul 08/11/2015 Cbc With Differential Ord2 Hall ABS# 0.9 K/ul 08/11/2015 Cbc With Differential Ord2 Eos ABS# 0.1 K/ul 08/11/2015 Cbc With Differential Ord2 Baso ABS# 0.0 K/ul 08/11/2015 Cbc With Differential Ord2 New Analyzer Notice Please note new ref ranges starting 06-03-2015 due to implemntation of new five part differential hematolgy analyzer. 08/11/2015 Comp Metabolic Egw210 NA 142 mEq/L 08/11/2015 Comp Metabolic Ssr018 K 3.6 mEq/L 08/11/2015 Comp Metabolic Llk511 CL 98 mEq/L 08/11/2015 Comp Metabolic Itv975 CO2 33.0 mEq/L 08/11/2015 Comp Metabolic Gyk048 ANION GAP 15 08/11/2015 Comp Metabolic Dvi066 GLUCOSE 100 mg/dL 08/11/2015 Comp Metabolic Jjw218 Creat 0.9 mg/dL 08/11/2015 Comp Metabolic Vkw593 eGFR 65 ml/min/1.73m2 08/11/2015 Comp Metabolic Pit459 BUN 15 mg/dL 08/11/2015 Comp Metabolic Bud393 B/C Ratio 16.3 Ratio 08/11/2015 Comp Metabolic Xsi956 CALCIUM 8.8 mg/dL 08/11/2015 Comp Metabolic Brg411 ALK PHOS 171 U/L 08/11/2015 Comp Metabolic Lqf732 AST(SGOT) 76 U/L 08/11/2015 Comp Metabolic Qii567 ALT(SGPT) 64 U/L 08/11/2015 Comp Metabolic Wpw559 BILI T 0.4 mg/dL 08/11/2015 Comp Metabolic Ulc497 ALBUMIN 4.2 g/dL 08/11/2015 Comp Metabolic Ezi346 TPRO 6.7 g/dL 08/11/2015 Comp Metabolic Idv367 GLOB 2.6 g/dL 08/11/2015 Comp Metabolic Byc406 A/G Ratio 1.6 Ratio 08/11/2015 Comp Metabolic Ifn743 Osmo 284 mOsmo 08/11/2015 %Hba1C Zif332 % HbA1c 15080-1 6.7 % 08/11/2015 %Hba1C Ize047 Gluc Ave 146 mg/dL 08/11/2015 Free T4 Jyt050 FREE T4 1.07 ng/dL 08/11/2015 Culture Urine [id number] URINE CULTURE SEE NOTES 07/23/2015 Culture Urine [id number] Continued Results 07/23/2015 Urine Culture Ucult Complete Growth of aerobe sent to ref lab 07/21/2015 Free T4 Owb153 FREE T4 0.76 ng/dL 04/15/2015 Tsh Ord6 hTSH II 1.99 uIU/mL 04/15/2015 %Hba1C Ywl107 % HbA1c 98777-0 6.7 % 04/14/2015 %Hba1C Ija754 Gluc Ave 146 mg/dL 04/14/2015 Comp Metabolic Bjj136 NA 140 mEq/L 04/14/2015 Comp Metabolic Gxs428 K 4.4 mEq/L 04/14/2015 Comp Metabolic Yqt097 CL 99 mEq/L 04/14/2015 Comp Metabolic Abp812 CO2 29.0 mEq/L 04/14/2015 Comp Metabolic Czz145 ANION GAP 16 04/14/2015 Comp Metabolic Isb520 GLUCOSE 100 mg/dL 04/14/2015 Comp Metabolic Zim446 Creat 0.7 mg/dL 04/14/2015 Comp Metabolic Kam541 eGFR 91 ml/min/1.73m2 04/14/2015 Comp Metabolic Dgr543 BUN 13 mg/dL 04/14/2015 Comp Metabolic Lkl795 B/C Ratio 18.8 Ratio 04/14/2015 Comp Metabolic Ouu550 CALCIUM 9.1 mg/dL 04/14/2015 Comp Metabolic Zsn215 ALK PHOS 138 U/L 04/14/2015 Comp Metabolic Kbv548 AST(SGOT) 22 U/L 04/14/2015 Comp Metabolic Wfs902 ALT(SGPT) 22 U/L 04/14/2015 Comp Metabolic Zsk171 BILI T 0.3 mg/dL 04/14/2015 Comp Metabolic Vgt840 ALBUMIN 4.0 g/dL 04/14/2015 Comp Metabolic Tbn315 TPRO 6.5 g/dL 04/14/2015 Comp Metabolic Qci590 GLOB 2.5 g/dL 04/14/2015 Comp Metabolic Glo281 A/G Ratio 1.6 Ratio 04/14/2015 Comp Metabolic Imi880 Osmo 280 mOsmo 04/14/2015 Cbc With Differential [...] Ord2 RDW 16.5 % 04/14/2015 CHEM 14 6590174 AST 15 U/L 09/11/2013 CHEM 14 4068570 ALT 25 IU/L 09/11/2013 CHEM 14 0411392 BUN 29 MG/DL 09/11/2013 CHEM 14 9810996 ALBUMIN 3.8 GM/DL 09/11/2013 CHEM 14 5068829 CHLORIDE 99 MMOL/L 09/11/2013 CHEM 14 8456189 BILI TOT 0.2 MG/DL 09/11/2013 CHEM 14 0943366 ALK PHOS 118 U/L 09/11/2013 CHEM 14 1968132 SODIUM 136 MMOL/L 09/11/2013 CHEM 14 2460411 CREATININE 1.26 MG/DL 09/11/2013 CHEM 14 4172709 CALCIUM 9.0 MG/DL 09/11/2013 CHEM 14 1627922 POTASSIUM 5.0 MMOL/L 09/11/2013 CHEM 14 3437670 PROT TOT 6.2 GM/DL 09/11/2013 CHEM 14 5779055 GLUCOSE 254 MG/DL 09/11/2013 CHEM 14 8513281 BICARB 29 MMOL/L 09/11/2013 CHEM 14 1586895 ANION GAP 8 MEQ/L 09/11/2013 GFR CALC 8002253 GFR AA 52.0L ML/MIN 09/11/2013 GFR CALC 5900281 GFR NON-AA 43.0L ML/MIN 09/11/2013 FREE T4 [id number] FREE T4 1.35 NG/DL 08/02/2013 CBC 4213424 WBC 7.5 10e9/L 08/01/2013 CBC 4383361 RBC 3.88 10e12/L 08/01/2013 CBC 1956990 HGB 12.1 g/dL 08/01/2013 CBC 2876908 HCT DET 37.6 % 08/01/2013 CBC 3523941 MCV 96.9 fL 08/01/2013 CBC 7368749 MCH 31.2 pg 08/01/2013 CBC 0755827 MCHC 32.2 g/dL 08/01/2013 CBC 5397009 PLT 289 10e9/L 08/01/2013 CBC 0810866 MPV 9.6 fL 08/01/2013 CBC 3192714 JOSEFINA % 56.0 % 08/01/2013 CBC 9838607 LY % 31.6 % 08/01/2013 CBC 5013283 MON % 10.0 % 08/01/2013 CBC 7150579 EOS % 1.7 % 08/01/2013 CBC 3536663 BASO % 0.7 % 08/01/2013 CBC 6164751 RDW 15.5 % 08/01/2013 CBC 9327993 ABS JOSEFINA 4.20 10e9/L 08/01/2013 CBC 0716937 ABS LYMPH 2.37 10e9/L 08/01/2013 CBC 3594331 ABS MONO 0.75 10e9/L 08/01/2013 CBC 6167966 ABS EOS 0.13 10e9/L 08/01/2013 CBC 0125567 ABS BASO 0.05 10e9/L 08/01/2013 CBC 4505402 RDW-SD 53.5 fL 08/01/2013 TSH 3818603 TSH 6.497 uIU/ML 08/01/2013 CHEM 14 2622488 AST 53 U/L 08/01/2013 CHEM 14 1229201 ALT 36 IU/L 08/01/2013 CHEM 14 5443749 BUN 16 MG/DL 08/01/2013 CHEM 14 8989995 ALBUMIN 4.2 GM/DL 08/01/2013 CHEM 14 2355414 CHLORIDE 103 MMOL/L 08/01/2013 CHEM 14 2672607 BILI TOT 0.4 MG/DL 08/01/2013 CHEM 14 9823112 ALK PHOS 113 U/L 08/01/2013 CHEM 14 7942185 SODIUM 139 MMOL/L 08/01/2013 CHEM 14 7566835 CREATININE 0.83 MG/DL 08/01/2013 CHEM 14 9954898 CALCIUM 9.5 MG/DL 08/01/2013 CHEM 14 5279571 POTASSIUM 4.2 MMOL/L 08/01/2013 CHEM 14 7693867 PROT TOT 6.4 GM/DL 08/01/2013 CHEM 14 0043936 GLUCOSE 135 MG/DL 08/01/2013 CHEM 14 4863742 BICARB 26 MMOL/L 08/01/2013 CHEM 14 7693663 ANION GAP 10 MEQ/L 08/01/2013 A1C HPLC 4769520 A1C HPLC 22609-9 8.1 % 08/01/2013 GFR CALC 6440697 GFR AA >60 ML/MIN 08/01/2013 GFR CALC 2850570 GFR NON-AA >60 ML/MIN 08/01/2013 CBC 9602105 WBC 10.4 10e9/L 03/21/2013 CBC 3240196 RBC 4.27 10e12/L 03/21/2013 CBC 0842177 HGB 13.1 g/dL 03/21/2013 CBC 2298979 HCT DET 41.2 % 03/21/2013 CBC 8883414 MCV 96.5 fL 03/21/2013 CBC 0251351 MCH 30.7 pg 03/21/2013 CBC 0603839 MCHC 31.8 g/dL 03/21/2013 CBC 6146678 PLT 398 10e9/L 03/21/2013 CBC 2200979 MPV 10.9 fL 03/21/2013 CBC 5504963 JOSEFINA % 65.4 % 03/21/2013 CBC 6663006 LY % 25.6 % 03/21/2013 CBC 1413651 MON % 6.7 % 03/21/2013 CBC 7689122 EOS % 1.9 % 03/21/2013 CBC 9485406 BASO % 0.4 % 03/21/2013 CBC 7347558 RDW 14.2 % 03/21/2013 CBC 1827936 ABS JOSEFINA 6.80 10e9/L 03/21/2013 CBC 4960713 ABS LYMPH 2.66 10e9/L 03/21/2013 CBC 1881683 ABS MONO 0.70 10e9/L 03/21/2013 CBC 9635110 ABS EOS 0.20 10e9/L 03/21/2013 CBC 5534677 ABS BASO 0.04 10e9/L 03/21/2013 CBC 3376471 RDW-SD 48.7 fL 03/21/2013 GFR CALC 6435402 GFR AA 57.0L ML/MIN 03/21/2013 GFR CALC 7583887 GFR NON-AA 47.0L ML/MIN 03/21/2013 CHEM 14 0837955 AST 22 U/L 03/21/2013 CHEM 14 6425549 ALT 22 IU/L 03/21/2013 CHEM 14 3896979 BUN 29 MG/DL 03/21/2013 CHEM 14 2208207 ALBUMIN 4.1 GM/DL 03/21/2013 CHEM 14 2470365 CHLORIDE 99 MMOL/L 03/21/2013 CHEM 14 5599445 BILI TOT 0.3 MG/DL 03/21/2013 CHEM 14 6347924 ALK PHOS 123 U/L 03/21/2013 CHEM 14 6625197 SODIUM 137 MMOL/L 03/21/2013 CHEM 14 4674110 CREATININE 1.16 MG/DL 03/21/2013 CHEM 14 3333380 CALCIUM 9.1 MG/DL 03/21/2013 CHEM 14 9577566 POTASSIUM 4.1 MMOL/L 03/21/2013 CHEM 14 4698404 PROT TOT 6.7 GM/DL 03/21/2013 CHEM 14 4039430 GLUCOSE 209 MG/DL 03/21/2013 CHEM 14 0539624 BICARB 26 MMOL/L 03/21/2013 CHEM 14 4914042 ANION GAP 12 MEQ/L 03/21/2013 A1C HPLC 8587694 A1C HPLC 91487-7 6.6 % 03/21/2013 GFR CALC 3891318 GFR AA >60 ML/MIN 01/17/2013 GFR CALC 4965796 GFR NON-AA 51.0L ML/MIN 01/17/2013 CHEM 14 8415158 AST 18 U/L 01/17/2013 CHEM 14 1805564 ALT 32 IU/L 01/17/2013 CHEM 14 7460503 BUN 22 MG/DL 01/17/2013 CHEM 14 6456890 ALBUMIN 4.1 GM/DL 01/17/2013 CHEM 14 8398042 CHLORIDE 99 MMOL/L 01/17/2013 CHEM 14 2560244 BILI TOT 0.3 MG/DL 01/17/2013 CHEM 14 2880151 ALK PHOS 110 U/L 01/17/2013 CHEM 14 2348698 SODIUM 138 MMOL/L 01/17/2013 CHEM 14 5442792 CREATININE 1.09 MG/DL 01/17/2013 CHEM 14 4048388 CALCIUM 8.8 MG/DL 01/17/2013 CHEM 14 6794258 POTASSIUM 3.5 MMOL/L 01/17/2013 CHEM 14 7879301 PROT TOT 6.1 GM/DL 01/17/2013 CHEM 14 2326886 GLUCOSE 163 MG/DL 01/17/2013 CHEM 14 6277039 BICARB 29 MMOL/L 01/17/2013 CHEM 14 3044267 ANION GAP 10 MEQ/L 01/17/2013 CBC 6186154 WBC 8.0 10e9/L 01/17/2013 CBC 8156228 RBC 3.85 10e12/L 01/17/2013 CBC 2603178 HGB 12.6 g/dL 01/17/2013 CBC 5012078 HCT DET 38.0 % 01/17/2013 CBC 7498078 MCV 98.7 fL 01/17/2013 CBC 8744545 MCH 32.7 pg 01/17/2013 CBC 4306676 MCHC 33.2 g/dL 01/17/2013 CBC 7064596 PLT 325 10e9/L 01/17/2013 CBC 6334283 MPV 10.4 fL 01/17/2013 CBC 1178746 JOSEFINA % 64.6 % 01/17/2013 CBC 4629471 LY % 27.0 % 01/17/2013 CBC 3339192 MON % 6.8 % 01/17/2013 CBC 6090890 EOS % 1.4 % 01/17/2013 CBC 2745198 BASO % 0.2 % 01/17/2013 CBC 1585875 RDW 15.5 % 01/17/2013 CBC 4766837 ABS JOSEFINA 5.17 10e9/L 01/17/2013 CBC 5819623 ABS LYMPH 2.16 10e9/L 01/17/2013 CBC 7279411 ABS MONO 0.54 10e9/L 01/17/2013 CBC 6181349 ABS EOS 0.11 10e9/L 01/17/2013 CBC 1852225 ABS BASO 0.02 10e9/L 01/17/2013 CBC 4368140 RDW-SD 54.3 fL 01/17/2013 TSH 6212065 TSH 3.683 uIU/ML 12/31/2012 FREE T4 0625993 FREE T4 1.34 NG/DL 12/31/2012 A1C HPLC 0158313 A1C HPLC 44330-1 6.6 % 12/21/2012 CHEM 14 9041041 AST 16 U/L 12/20/2012 CHEM 14 8581649 ALT 36 IU/L 12/20/2012 CHEM 14 9184464 BUN 26 MG/DL 12/20/2012 CHEM 14 1937393 ALBUMIN 4.2 GM/DL 12/20/2012 CHEM 14 3654143 CHLORIDE 103 MMOL/L 12/20/2012 CHEM 14 9423620 BILI TOT 0.4 MG/DL 12/20/2012 CHEM 14 3039445 ALK PHOS 107 U/L 12/20/2012 CHEM 14 8788172 SODIUM 141 MMOL/L 12/20/2012 CHEM 14 3127270 CREATININE 0.73 MG/DL 12/20/2012 CHEM 14 8585965 CALCIUM 9.2 MG/DL 12/20/2012 CHEM 14 4824893 POTASSIUM 4.3 MMOL/L 12/20/2012 CHEM 14 3257739 PROT TOT 6.2 GM/DL 12/20/2012 CHEM 14 5873469 GLUCOSE 135 MG/DL 12/20/2012 CHEM 14 4924846 BICARB 32 MMOL/L 12/20/2012 CHEM 14 5840093 ANION GAP 6 MEQ/L 12/20/2012 GFR CALC 4494347 GFR AA >60 ML/MIN 12/20/2012 GFR CALC 7983314 GFR NON-AA >60 ML/MIN 12/20/2012 CBC 9221659 WBC 8.4 10e9/L 12/20/2012 CBC [id number] RBC 4.30 10e12/L 12/20/2012 CBC [id number] HGB 13.9 g/dL 12/20/2012 CBC 8820015 HCT DET 41.8 % 12/20/2012 CBC 1596076 MCV 97.2 fL 12/20/2012 CBC 5302826 MCH 32.3 pg 12/20/2012 CBC 6085520 MCHC 33.3 g/dL 12/20/2012 CBC 6988925 PLT 358 10e9/L 12/20/2012 CBC [id number] MPV 10.2 fL 12/20/2012 CBC [id number] JOSEFINA % 63.3 % 12/20/2012 CBC 0809567 LY % 28.9 % 12/20/2012 CBC [id number] MON % 6.3 % 12/20/2012 CBC 2752330 EOS % 1.1 % 12/20/2012 CBC 1208007 BASO % 0.4 % 12/20/2012 CBC 6316767 RDW 15.3 % 12/20/2012 CBC 1594832 ABS JOSEFINA 5.32 10e9/L 12/20/2012 CBC 7923370 ABS LYMPH 2.43 10e9/L 12/20/2012 CBC 5832437 ABS MONO 0.53 10e9/L 12/20/2012 CBC 5242461 ABS EOS 0.09 10e9/L 12/20/2012 CBC [id number] ABS BASO 0.03 10e9/L 12/20/2012 CBC 6979289 RDW-SD 51.9 fL 12/20/2012 GFR CALC 6693799 GFR AA >60 ML/MIN 02/01/2012 GFR CALC 9833155 GFR NON-AA >60 ML/MIN 02/01/2012 CBC 0694519 WBC 10.8 10e9/L 02/01/2012 CBC 0588699 RBC 3.86 10e12/L 02/01/2012 CBC 6014200 HGB 11.8 g/dL 02/01/2012 CBC 7025174 HCT DET 36.3 % 02/01/2012 CBC 8809842 MCV 94.0 fL 02/01/2012 CBC 6326012 MCH 30.6 pg 02/01/2012 CBC 6514763 MCHC 32.5 g/dL 02/01/2012 CBC 2569961 PLT 321 10e9/L 02/01/2012 CBC 9825812 MPV 10.3 fL 02/01/2012 CBC 8715615 JOSEFINA % 75.9 % 02/01/2012 CBC 0587677 LY % 16.1 % 02/01/2012 CBC 6357970 MON % 6.8 % 02/01/2012 CBC 6073323 EOS % 1.0 % 02/01/2012 CBC 1184379 BASO % 0.2 % 02/01/2012 CBC 5335099 RDW 14.2 % 02/01/2012 CBC 4624230 ABS JOSEFINA 8.20 10e9/L 02/01/2012 CBC 1045676 ABS LYMPH 1.74 10e9/L 02/01/2012 CBC 5136538 ABS MONO 0.73 10e9/L 02/01/2012 CBC 0186870 ABS EOS 0.11 10e9/L 02/01/2012 CBC 7323627 ABS BASO 0.02 10e9/L 02/01/2012 CBC 4081377 RDW-SD 47.2 fL 02/01/2012 BRAIN PEP 2412939 BRAIN PEP FOOTNOTE pg/mL 02/01/2012 CHEM 14 5611289 AST 26 U/L 02/01/2012 CHEM 14 8232672 ALT 36 IU/L 02/01/2012 CHEM 14 5670891 BUN 29 MG/DL 02/01/2012 CHEM 14 5023492 ALBUMIN 3.7 GM/DL 02/01/2012 CHEM 14 0433889 CHLORIDE 105 MMOL/L 02/01/2012 CHEM 14 0100616 BILI TOT 0.2 MG/DL 02/01/2012 CHEM 14 5362323 ALK PHOS 89 U/L 02/01/2012 CHEM 14 8321266 SODIUM 141 MMOL/L 02/01/2012 CHEM 14 7902177 CREATININE 0.76 MG/DL 02/01/2012 CHEM 14 8158349 CALCIUM 9.0 MG/DL 02/01/2012 CHEM 14 7019691 POTASSIUM 4.8 MMOL/L 02/01/2012 CHEM 14 5393571 PROT TOT 5.5 GM/DL 02/01/2012 CHEM 14 6347825 GLUCOSE 83 MG/DL 02/01/2012 CHEM 14 2746282 BICARB 31 MMOL/L 02/01/2012 CHEM 14 5868289 ANION GAP 5 MEQ/L 02/01/2012 GFR CALC 6369857 GFR AA >60 ML/MIN 11/30/2011 GFR CALC 4265645 GFR NON-AA >60 ML/MIN 11/30/2011 CHEM 14 1221174 AST 14 U/L 11/30/2011 CHEM 14 1369994 ALT 17 IU/L 11/30/2011 CHEM 14 8413773 BUN 12 MG/DL 11/30/2011 CHEM 14 1640223 ALBUMIN 4.3 GM/DL 11/30/2011 CHEM 14 1576402 CHLORIDE 104 MMOL/L 11/30/2011 CHEM 14 9562198 BILI TOT 0.3 MG/DL 11/30/2011 CHEM 14 5378916 ALK PHOS 83 U/L 11/30/2011 CHEM 14 3499742 SODIUM 143 MMOL/L 11/30/2011 CHEM 14 6248829 CREATININE 0.71 MG/DL 11/30/2011 CHEM 14 4184486 CALCIUM 9.7 MG/DL 11/30/2011 CHEM 14 3393845 POTASSIUM 4.4 MMOL/L 11/30/2011 CHEM 14 7727016 PROT TOT 6.3 GM/DL 11/30/2011 CHEM 14 8111756 GLUCOSE 107 MG/DL 11/30/2011 CHEM 14 7463716 BICARB 27 MMOL/L 11/30/2011 CHEM 14 7534844 ANION GAP 12 MEQ/L 11/30/2011 CBC 9441768 WBC 8.7 10e9/L 11/30/2011 CBC 8450879 RBC 4.40 10e12/L 11/30/2011 CBC 9260297 HGB 13.6 g/dL 11/30/2011 CBC 7079075 HCT DET 41.0 % 11/30/2011 CBC 3065927 MCV 93.2 fL 11/30/2011 CBC 7384837 MCH 30.9 pg 11/30/2011 CBC 6030346 MCHC 33.2 g/dL 11/30/2011 CBC 6200793 PLT 328 10e9/L 11/30/2011 CBC 7852141 MPV 10.7 fL 11/30/2011 CBC [id number] JOSEFINA % 68.4 % 11/30/2011 CBC 0471732 LY % 22.4 % 11/30/2011 CBC 2357362 MON % 7.9 % 11/30/2011 CBC 6869364 EOS % 1.1 % 11/30/2011 CBC 4620570 BASO % 0.2 % 11/30/2011 CBC [id number] RDW 13.5 % 11/30/2011 CBC [id number] ABS JOSEFINA 5.95 10e9/L 11/30/2011 CBC [id number] ABS LYMPH 1.95 10e9/L 11/30/2011 CBC [id number] ABS MONO 0.69 10e9/L 11/30/2011 CBC [id number] ABS EOS 0.10 10e9/L 11/30/2011 CBC [id number] ABS BASO 0.02 10e9/L 11/30/2011 CBC [id number] RDW-SD 45.0 fL 11/30/2011 URINALYSIS NONAUTO W/O SCOPE 99172 Specific [place] 1.030 DateTime(Free Text in Aprima) URINALYSIS NONAUTO W/O SCOPE 31432 PH 5 DateTime(Free Text in Aprima) URINALYSIS NONAUTO W/O SCOPE 09119 GLUCOSE neg DateTime( Free Text in Aprima) URINALYSIS NONAUTO W/O SCOPE 99077 Protein neg DateTime( Free Text in Aprima) URINALYSIS NONAUTO W/O SCOPE 90383 Blood neg DateTime(Free Text in Aprima) URINALYSIS NONAUTO W/O SCOPE 05607 Bilirubin neg DateTime(Free Text in Aprima) URINALYSIS NONAUTO W/O SCOPE 43837 Ketones neg DateTime( Free Text in Aprima) URINALYSIS NONAUTO W/O SCOPE 87826 Urobilinogen neg DateTime(Free Text in Aprima) URINALYSIS NONAUTO W/O SCOPE 02990 Nitrite neg DateTime( Free Text in Aprima) URINALYSIS NONAUTO W/O SCOPE 10567 Leukocytes neg DateTime(Free Text in Aprima) UA 19970 Specific [place] 1.010 DateTime(Free Text in Aprima ) UA 86044 PH 5 DateTime(Free Text in Aprima) UA 30818 GLUCOSE N DateTime(Free Text in Aprima) UA 62081 Protein N DateTime(Free Text in Aprima) UA 16041 Blood TRACE DateTime(Free Text in Aprima) UA 51487 Bilirubin N DateTime(Free Text in Aprima) UA 03728 Ketones N DateTime(Free Text in Aprima) UA 53438 Urobilinogen N DateTime(Free Text in Aprima) UA 07763 Nitrite N DateTime(Free Text in Aprima) UA 62373 Leukocytes N DateTime(Free Text in Aprima) URINALYSIS NONAUTO W/O SCOPE 33964 Specific [place] 1.010 DateTime(Free Text in Aprima) URINALYSIS NONAUTO W/O SCOPE 90755 PH 7.5 DateTime(Free Text in Aprima) URINALYSIS NONAUTO W/O SCOPE 59840 GLUCOSE DateTime( Free Text in Aprima) URINALYSIS NONAUTO W/O SCOPE 20488 Protein trace DateTime(Free Text in Aprima) URINALYSIS NONAUTO W/O SCOPE 53859 Blood DateTime(Free Text in Aprima) URINALYSIS NONAUTO W/O SCOPE 22106 Bilirubin DateTime( Free Text in Aprima) URINALYSIS NONAUTO W/O SCOPE 51604 Ketones DateTime( Free Text in Aprima) URINALYSIS NONAUTO W/O SCOPE 75825 Urobilinogen DateTime (Free Text in Aprima) URINALYSIS NONAUTO W/O SCOPE 47467 Nitrite DateTime( Free Text in Aprima) URINALYSIS NONAUTO W/O SCOPE 61435 Leukocytes DateTime( Free Text in Aprima) URINALYSIS NONAUTO W/O SCOPE 03788 Specific [place] 1.010 DateTime(Free Text in Aprima) URINALYSIS NONAUTO W/O SCOPE 93463 PH 6 DateTime(Free Text in Aprima) URINALYSIS NONAUTO W/O SCOPE 41246 GLUCOSE DateTime( Free Text in Aprima) URINALYSIS NONAUTO W/O SCOPE 45078 Protein DateTime( Free Text in Aprima) URINALYSIS NONAUTO W/O SCOPE 84905 Blood DateTime(Free Text in Aprima) URINALYSIS NONAUTO W/O SCOPE 68229 Bilirubin DateTime( Free Text in Aprima) URINALYSIS NONAUTO W/O SCOPE 84376 Ketones DateTime( Free Text in Aprima) URINALYSIS NONAUTO W/O SCOPE 01963 Urobilinogen DateTime (Free Text in Aprima) URINALYSIS NONAUTO W/O SCOPE 09260 Nitrite DateTime( Free Text in Aprima) URINALYSIS NONAUTO W/O SCOPE 56819 Leukocytes DateTime( Free Text in Aprima) UA 67899 Specific [place] 1.020 DateTime(Free Text in Aprima ) UA 41667 PH 6 DateTime(Free Text in Aprima) UA 07304 GLUCOSE neg DateTime(Free Text in Aprima) UA 21982 Protein neg DateTime(Free Text in Apr) UA 61843 Blood neg DateTime(Free Text in ) UA 11204 Bilirubin neg DateTime(Free Text in ) UA 41839 Ketones neg DateTime(Free Text in ) UA 48926 Urobilinogen neg DateTime(Free Text in ) UA 35884 Nitrite neg DateTime(Free Text in ) UA 08674 Leukocytes neg DateTime(Free Text in ) Review of Systems System Result Effective Dates Constitutional recent illness 04/10/2018 Constitutional anorexia 04/10/2018 [...] oriented 11/27/2017 None Full Exam - General 1995 Psychiatric orientation/consciousness Oriented to person: yes 11/27/2017 None Full Exam - General 1994 Psychiatric orientation/consciousness Oriented to place: yes 11/27/2017 None Full Exam - General 1994 Psychiatric orientation/consciousness Oriented to time: yes 11/27/2017 None Full Exam - General 1995 Psychiatric orientation/consciousness Level of consciousness: alert 11/27/2017 [...] visualized 01/27/2014 None Full Exam - General 1995 [...] accomodation 12/26/2013 None Full Exam - General 1995 Respiratory [...] General 1995 Ears/Nose/Throat lips/teeth/gingiva Overall: benign lips 08/19/2013 None Full Exam - General 1995 Ears/Nose/Throat lips/teeth/gingiva Overall: normal dentition 08/19/2013 None [...] lips 08/01/2013 None Full Exam - General 1995 Ears/Nose/Throat lips/teeth/gingiva Overall: normal dentition 08/01/2013 None [...] yes 04/16/2013 None Full Exam - General 1995 Psychiatric orientation/consciousness Level of consciousness: alert 04/16/2013 [...] gingiva 02/12/2013 None Full Exam - General 1994 Ears/Nose/Throat lips/teeth/gingiva Overall: no masses 02/12/2013 None [...] nourished 02/04/2013 None Full Exam - General 1995 Eyes pupils and irises Overall: pupils equal, round, reactive to light and accomodation 02/04/2013 None Full Exam - General 1995 Ears/Nose/Throat external ear Overall: normal appearance 02/04/2013 None Full Exam - General 1995 Ears/Nose/Throat external ear Overall: no masses 02/04/2013 [...] General 1995 Cardiovascular extremities Edema present: pitting 12/20/2012 None Full Exam - General 1995 [...] developed 10/29/2012 None Full Exam - General 1995 Constitutional general appearance Overall: in no acute distress 10/29/2012 None Full Exam - General 1995 Constitutional general appearance Overall: well nourished 10/29/2012 None Full Exam - General 1995 Eyes [...] rate 09/06/2012 None Full Exam - General 1995 Cardiovascular extremities Edema present: pitting 09/06/2012 None [...] bilateral 08/23/2012 None Full Exam - General 1995 Cardiovascular extremities Edema present: to knees 08/23/2012 [...] age 0106/07/2012 None Full Exam - General 1995 Eyes conjunctiva /eyelids Overall: conjunctiva clear 06/07/2012 [...] tenderness 02/27/2012 None Full Exam - General 1995 Abdomen [...] distress 11/17/2011 None Full Exam - General 1995 Constitutional general appearance Overall: well nourished 11/17/2011 [...] sounds 11/17/2011 None Full Exam - General 1995 Cardiovascular auscultation of heart Overall: no murmurs 11/17/2011 None Full Exam - General 1994 Abdomen abdominal exam Overall: no tenderness 11/17/2011 None Full Exam - General 1995 Abdomen abdominal exam Overall: normal bowel sounds 11/17/2011 None Full Exam - General 1995 Musculoskeletal [...] rate 11/03/2011 None Full Exam - General 1995 Constitutional general appearance Development: well developed 11/03/2011 None Full Exam - General 1995 Cardiovascular auscultation of heart Rhythm: regular rhythm 11/03/2011 None Full Exam - General 1994 Cardiovascular auscultation of heart S1: a normal exam 11/03/2011 None Full Exam - General 1994 Cardiovascular auscultation of heart S2: a normal exam 11/03/2011 None Full Exam - General 1995 Abdomen abdominal exam Overall: no tenderness 11/03/2011 [...] rate 08/01/2011 None Full Exam - General 1995 Cardiovascular auscultation of heart Overall: regular rate 08/01/2011 None Full Exam - General 1995 Cardiovascular auscultation of heart Overall: normal heart sounds 08/01/2011 None Full Exam - General 1995 Cardiovascular auscultation of heart Overall: no murmurs 08/01/2011 None Full Exam - General 1995 Abdomen abdominal exam Overall: no tenderness 08/01/2011 None Full Exam - General 1995 Abdomen abdominal exam Overall: normal bowel sounds 08/01/2011 None Full Exam - General 1995 Musculoskeletal head and neck Overall: head atraumatic 08/01/2011 None Full Exam - General 1995 Musculoskeletal head and neck Overall: cervical spine benign 08/01/2011 None Full Exam - General 1995 Neurologic [...] time 06/20/2011 None Full Exam - General 1995 [...] dentition 04/18/2011 None Procedures Procedure Codes Date URINALYSIS NONAUTO W/O SCOPE CPT-4: 79978 04/10/2018 GLUCOSE MONITORING CONT CPT-4: 19120 04/10/2018 OCCULT BLOOD FECES CPT -4: 55943 02/22/2018 URINALYSIS NONAUTO W/O SCOPE CPT-4: 73682 02/20/2018 URINALYSIS NONAUTO W/O SCOPE CPT-4: 98078 12/14/2017 URINALYSIS NONAUTO W/O SCOPE CPT-4: 01659 11/27/2017 PPPS, SUBSEQ VISIT CPT -4: G0439 10/27/2017 GLUCOSE MONITORING CONT CPT-4: 06535 09/27/2017 URINALYSIS NONAUTO W/O SCOPE CPT-4: 73675 06/30/2017 URINALYSIS NONAUTO W/O SCOPE CPT-4: 27167 11/25/2016 URINALYSIS NONAUTO W/O SCOPE CPT-4: 28350 10/21/2016 URINALYSIS NONAUTO W/O SCOPE CPT-4: 29759 06/24/2016 URINALYSIS NONAUTO W/O SCOPE CPT-4: 25964 04/11/2016 ADMIN PNEUMOCOCCAL VACCINE SNOMED CT: [id number] CPT-4: G0009 02/26/2016 PNEUMOCOCCAL VACC 13 ANURADHA IM Formatting Model/CDA Sections, Assigned to/Jada Velazquez SNOMED CT: [id number] CPT-4: 65216Pzwcjzz 02/26/2016 URINALYSIS NONAUTO W/O SCOPE CPT-4: 74383 02/10/2016 URINALYSIS NONAUTO W/O SCOPE CPT-4: 29617 11/27/2015 URINALYSIS NONAUTO W/O SCOPE CPT-4: 85845 11/02/2015 INITIAL PREVENTIVE EXAM CPT-4: G0402 09/29/2015 URINALYSIS NONAUTO W/O SCOPE CPT-4: 72116 07/20/2015 TRIAMCINOLONE ACET INJ NOS CPT-4: J3301 06/26/2015 URINALYSIS NONAUTO W/O SCOPE CPT-4: 66651 11/05/2014 URINALYSIS NONAUTO W/O SCOPE CPT-4: 83035 04/21/2014 CULTURE AEROBIC IDENTIFY CPT-4: 31867 12/12/2013 URINALYSIS NONAUTO W/O SCOPE CPT-4: 74940 11/18/2013 ROUTINE VENIPUNCTURE CPT-4: 81346 09/10/2013 ROUTINE VENIPUNCTURE CPT-4: 19781 08/01/2013 URINALYSIS NONAUTO W/O SCOPE CPT-4: 66019 06/28/2013 TRIAMCINOLONE ACET INJ NOS CPT-4: J3301 05/07/2013 DRAIN/INJECT JOINT/BURSA CPT-4: 21760 05/07/2013 ROUTINE VENIPUNCTURE CPT-4: 15792 03/21/2013 ROUTINE VENIPUNCTURE CPT-4: 08773 01/17/2013 URINALYSIS NONAUTO W/O SCOPE CPT-4: 66980 01/01/2013 ROUTINE VENIPUNCTURE CPT-4: 04896 12/31/2012 ROUTINE VENIPUNCTURE CPT-4: 45410 12/20/2012 URINALYSIS NONAUTO W/O SCOPE CPT-4: 41445 11/05/2012 DRAIN/INJECT JOINT/BURSA CPT-4: 85070 09/21/2012 TRIAMCINOLONE ACET INJ NOS CPT-4: J3301 09/21/2012 URINALYSIS NONAUTO W/O SCOPE CPT-4: 86426 07/19/2012 TRIAMCINOLONE ACET INJ NOS CPT-4: J3301 07/06/2012 Pneumococcal Polysaccharide Vaccine, 23-Valent, Ad CPT-4: 44371 06/07/2012 IMMUNIZATION ADMIN CPT -4: 84446 06/07/2012 TRIAMCINOLONE ACET INJ NOS CPT-4: J3301 05/02/2012 ROUTINE VENIPUNCTURE CPT-4: 82109 02/01/2012 URINALYSIS NONAUTO W/O SCOPE CPT-4: 20993 02/01/2012 TRIAMCINOLONE ACET INJ NOS CPT-4: J3301 12/14/2011 INJ TRIGGER POINT 1/2 MUSCL CPT-4: 98895 12/14/2011 PROMETHAZINE HCL INJECTION CPT-4: J2550 11/30/2011 ROUTINE VENIPUNCTURE CPT-4: 23040 11/30/2011 TRIAMCINOLONE ACET INJ NOS CPT-4: J3301 08/01/2011 DRAIN/INJECT JOINT/BURSA CPT-4: 45469 08/01/2011 THER/PROPH/DIAG INJ SC/IM CPT-4: 02467 04/18/2011 TRIAMCINOLONE ACET INJ NOS CPT-4: J3301 04/18/2011 Vital Signs Date Vital 04/10/2018 Blood Pressure 1: 120/68 Code : 8480-6 BMI: 39.7 Code : 66541-8 Heart Rate 1 : 87 bpm Height: 5'2" SpO2: 99% Weight: 217 lbs 03/12/2018 Blood Pressure 1: 140/70 Code : 8480-6 BMI: 40.2 Code : 42829-5 Heart Rate 1 : 78 bpm Height: 5'2" SpO2: 98% Weight: 220 lbs 02/20/2018 Blood Pressure 1: 140/70 Code : 8480-6 BMI: 40.2 Code : 06094-0 Heart Rate 1 : 96 bpm Height: 5'2" SpO2: 93% Weight: 220 lbs 11/27/2017 Blood Pressure 1: 158/78 Code : 8480-6 BMI: 40.8 Code : 34140-2 Heart Rate 1 : 100 bpm Height: 5'2" SpO2: 95% Weight: 223 lbs 10/27/2017 Blood Pressure 1: 146/70 Code : 8480-6 BMI: 41.3 Code : 51218-5 Heart Rate 1 : 82 bpm Height: 5'2" SpO2: 99% Waist Measure (cm): 119 cm Weight: 226 lbs 09/15/2017 Blood Pressure 1: 136/66 Code : 8480-6 BMI: 41.5 Code : 19221-8 Heart Rate 1 : 94 bpm Height: 5'2" SpO2: 96% Weight: 227 lbs 08/18/2017 Blood Pressure 1: 120/68 Code : 8480-6 BMI: 41.5 Code : 68290-2 Heart Rate 1 : 87 bpm Height: 5'2" SpO2: 94% Weight: 227 lbs 08/03/2017 Blood Pressure 1: 132/72 Code : 8480-6 BMI: 41.5 Code : 02393-7 Heart Rate 1 : 93 bpm Height: 5'2" SpO2: 95% Weight: 227 lbs 07/27/2017 Blood Pressure 1: 128/84 Code : 8480-6 BMI: 41.5 Code : 50202-8 Heart Rate 1 : 91 bpm Height: 5'2" SpO2: 98% Weight: 227 lbs 06/13/2017 Blood Pressure 1: 136/84 Code : 8480-6 BMI: 42.6 Code : 94878-0 Heart Rate 1 : 91 bpm Height: 5'2" SpO2: 94% Weight: 233 lbs 04/21/2017 Blood Pressure 1: 142/84 Code : 8480-6 BMI: 42.8 Code : 24532-9 Heart Rate 1 : 89 bpm Height: 5'2" SpO2: 94% Weight: 234 lbs 04/18/2017 Blood Pressure 1: 140/86 Code : 8480-6 BMI: 42.8 Code : 20011-0 Heart Rate 1 : 89 bpm Height: 5'2" SpO2: 97% Weight: 234 lbs 03/27/2017 Blood Pressure 1: 148/76 Code : 8480-6 BMI: 42.6 Code : 75961-1 Heart Rate 1 : 92 bpm Height: [...] Code : 8480-6 BMI: 44.3 Code : 15911-2 Heart Rate 1 : 90 bpm Height: 5'2" SpO2: 96% Weight: 242 lbs 01/30/2017 Blood Pressure 1: 132/72 Code : 8480-6 Heart Rate 1: 97 bpm Height: 5'2" SpO2: 96% Weight: 01/16/2017 Blood Pressure 1: 138/76 Code : 8480-6 BMI: 43.3 Code : 48530-1 Heart Rate 1 : 84 bpm Height: 5'2" SpO2: 99% Weight: 237 lbs 12/13/2016 Blood Pressure 1: 144/78 Code : 8480-6 Heart Rate 1: 96 bpm Height: 5'2" SpO2: 98% Temperature: 36.6 (C) / 97.9 (F) Weight: 11/11/2016 Blood Pressure 1: 144/80 Code : 8480-6 BMI: 43.0 Code : 62689-4 Heart Rate 1 : 89 bpm Height: 5'2" SpO2: 94% Temperature: 36.1 (C) / 97.0 (F) Weight: 235 lbs 10/28/2016 Blood Pressure 1: 156/82 Code : 8480-6 BMI: 43.9 Code : 13414-6 Heart Rate 1 : 78 bpm Height: [...] Code : 8480-6 BMI: 42.4 Code : 98970-9 Heart Rate 1 : 95 bpm Height: 5'2" SpO2: 98% Weight: 232 lbs 08/09/2016 Blood Pressure 1: 138/80 Code : 8480-6 BMI: 41.0 Code : 91652-6 Heart Rate 1 : 98 bpm Height: 5'2" SpO2: 97% Weight: 224 lbs 07/26/2016 Blood Pressure 1: 148/82 Code : 8480-6 BMI: 42.4 Code : 54650-4 Heart Rate 1 : 89 bpm Height: 5'2" SpO2: 97% Weight: 232 lbs 05/24/2016 Blood Pressure 1: 146/72 Code : 8480-6 BMI: 42.4 Code : 18197-3 Heart Rate 1 : 89 bpm Height: 5'2" SpO2: 99% Weight: 232 lbs 04/19/2016 Blood Pressure 1: 130/88 Code : 8480-6 BMI: 42.4 Code : 25703-1 Heart Rate 1 : 88 bpm Height: 5'2" SpO2: 98% Weight: 232 lbs 04/11/2016 Blood Pressure 1: 140/80 Code : 8480-6 BMI: 41.7 Code : 31547-9 Heart Rate 1 : 97 bpm Height: 5'2" SpO2: 95% Weight: 228 lbs 03/21/2016 Blood Pressure 1: 138/80 Code : 8480-6 BMI: 44.4 Code : 02913-5 Height: 5'2" Weight: 243 lbs 03/11/2016 Blood Pressure 1: 138/82 Code : 8480-6 BMI: 44.4 Code : 71282-2 Heart Rate 1 : 86 bpm Height: 5'2" SpO2: 95% Weight: 243 lbs 02/26/2016 Blood Pressure 1: 130/82 Code : 8480-6 BMI: 43.9 Code : 45086-0 Heart Rate 1 : 86 bpm Height: 5'2" SpO2: 97% Weight: 240 lbs 02/02/2016 Blood Pressure 1: 136/86 Code : 8480-6 Heart Rate 1: 56 bpm Height: SpO2: 96% Weight: 12/17/2015 Blood Pressure 1: 140/80 Code : 8480-6 BMI: 40.2 Code : 11146-0 Heart Rate 1 : 100 bpm Height: 5'2" SpO2: 99% Weight: 220 lbs 12/08/2015 Blood Pressure 1: 132/86 Code : 8480-6 Heart Rate 1: 100 bpm Height: SpO2: 97% Weight: 11/27/2015 Blood Pressure 1: 128/82 Code : 8480-6 BMI: 39.3 Code : 42873-0 Heart Rate 1 : 112 bpm Height: 5'2" SpO2: 96% Weight: 215 lbs 11/12/2015 Blood Pressure 1: 168/88 Code : 8480-6 Heart Rate 1: 106 bpm Height: 5'2" SpO2: 96% Weight: 11/10/2015 Blood Pressure 1: 156/80 Code : 8480-6 Heart Rate 1: 94 bpm Height: 5'2" SpO2: 96% Weight: 10/27/2015 Blood Pressure 1: 142/76 Code : 8480-6 BMI: 40.8 Code : 66442-0 Heart Rate 1 : 86 bpm Height: 5'2" SpO2: 97% Weight: 223 lbs 09/29/2015 Blood Pressure 1: 132/88 Code : 8480-6 BMI: 41.7 Code : 17370-4 Heart Rate 1 : 104 bpm Height: 5'2" SpO2: 94% Weight: 228 lbs 09/22/2015 Blood Pressure 1: 130/80 Code : 8480-6 BMI: 41.7 Code : 17416-2 Heart Rate 1 : 89 bpm Height: 5'2" SpO2: 97% Weight: 228 lbs 09/01/2015 Blood Pressure 1: 138/88 Code : 8480-6 BMI: 40.6 Code : 02750-2 Heart Rate 1 : 95 bpm Height: 5'2" SpO2: 95% Weight: 222 lbs 08/10/2015 Blood Pressure 1: 140/82 Code : 8480-6 BMI: 41.0 Code : 45621-9 Heart Rate 1 : 84 bpm Height: 5'2" SpO2: 97% Weight: 224 lbs 06/26/2015 Blood Pressure 1: 152/72 Code : 8480-6 BMI: 41.2 Code : 31077-2 Heart Rate 1 : 92 bpm Height: 5'2" SpO2: 96% Weight: 225 lbs 04/14/2015 Blood Pressure 1: 158/86 Code : 8480-6 BMI: 41.2 Code : 96387-7 Heart Rate 1 : 63 bpm Height: 5'2" SpO2: 93% Weight: 225 lbs 03/03/2015 Blood Pressure 1: 152/80 Code : 8480-6 BMI: 40.1 Code : 29846-1 Heart Rate 1 : 101 bpm Height: 5'2" SpO2: 97% Weight: 219 lbs 01/15/2015 Blood Pressure 1: 127/76 Code : 8480-6 BMI: 40.6 Code : 85016-3 Heart Rate 1 : 109 bpm Height: 5'2" SpO2: 97% Weight: 222 lbs 01/01/2015 Blood Pressure 1: 136/64 Code : 8480-6 BMI: 40.4 Code : 89538-6 Heart Rate 1 : 94 bpm Height: 5'2" SpO2: 96% Weight: 221 lbs 12/25/2014 Blood Pressure 1: 146/80 Code : 8480-6 Heart Rate 1: 95 bpm Height: 5'2" SpO2: 94% 11/04/2014 Blood Pressure 1: 110/70 Code : 8480-6 BMI: 40.2 Code : 47336-8 Heart Rate 1 : 878 bpm Height: 5'2" SpO2: 97% Weight: 220 lbs 09/08/2014 Blood Pressure 1: 142/78 Code : 8480-6 BMI: 39.5 Code : 38605-2 Heart Rate 1 : 97 bpm Height: 5'2" SpO2: 98% Weight: 216 lbs 08/29/2014 Blood Pressure 1: 140/90 Code : 8480-6 Blood Pressure 2: 120/70 Code: 8480-6 BMI: 40.2 Code: 96004-8 Heart Rate 1: 88 bpm Height: 5'2" Weight: 220 lbs 06/30/2014 Blood Pressure 1: 132/74 Code : 8480-6 BMI: 39.1 Code : 18121-8 Heart Rate 1 : 76 bpm Height: 5'2" Weight: 214 lbs 06/12/2014 Blood Pressure 1: 118/76 Code : 8480-6 BMI: 40.4 Code : 55281-1 Heart Rate 1 : 86 bpm Height: 5'2" SpO2: 96% Weight: 221 lbs 05/26/2014 Blood Pressure 1: 128/78 Code : 8480-6 BMI: 39.5 Code : 91198-6 Heart Rate 1 : 76 bpm Height: 5'2" Weight: 216 lbs 04/15/2014 Blood Pressure 1: 144/72 Code : 8480-6 BMI: 40.8 Code : 50742-6 Heart Rate 1 : 60 bpm Height: 5'2" Weight: 223 lbs 03/25/2014 Blood Pressure 1: 118/72 Code : 8480-6 BMI: 41.2 Code : 57881-8 Heart Rate 1 : 80 bpm Height: 5'2" Weight: 225 lbs 03/03/2014 Blood Pressure 1: 138/86 Code : 8480-6 BMI: 41.5 Code : 74088-8 Heart Rate 1 : 104 bpm Height: 5'2" Temperature: 36.1 (C) / 97.0 (F) Weight: 227 lbs 02/13/2014 Blood Pressure 1: 142/88 Code : 8480-6 BMI: 40.8 Code : 29792-4 Heart Rate 1 : 88 bpm Height: 5'2" Weight: 223 lbs 01/27/2014 Blood Pressure 1: 124/68 Code : 8480-6 BMI: 39.9 Code : 26968-5 Heart Rate 1 : 89 bpm Height: 5'2" SpO2: 94% Weight: 218 lbs 12/26/2013 Blood Pressure 1: 108/52 Code : 8480-6 BMI: 41.2 Code : 67168-1 Heart Rate 1 : 96 bpm Height: 5'2" Weight: 225 lbs 12/12/2013 Blood Pressure 1: 158/88 Code : 8480-6 BMI: 42.6 Code : 48748-5 Heart Rate 1 : 80 bpm Height: 5'2" Weight: 233 lbs 11/14/2013 Blood Pressure 1: 120/60 Code : 8480-6 BMI: 42.4 Code : 74037-0 Heart Rate 1 : 96 bpm Height: 5'2" Temperature: 5423.3 (C ) / 9794.0 (F) Weight: 232 lbs 10/21/2013 Blood Pressure 1: 100/60 Code : 8480-6 BMI: 41.9 Code : 83433-4 Heart Rate 1 : 96 bpm Height: 5'2" Weight: 229 lbs 10/03/2013 Blood Pressure 1: 122/72 Code : 8480-6 BMI: 42.3 Code : 94062-5 Heart Rate 1 : 84 bpm Height: 5'2" Weight: 231 lbs 09/27/2013 Blood Pressure 1: 112/58 Code : 8480-6 Heart Rate 1: 72 bpm SpO2: 93% Temperature: 36.2 (C) / 97.1 (F) Weight: 09/23/2013 Blood Pressure 1: 108/76 Code : 8480-6 BMI: 42.4 Code : 63585-5 Heart Rate 1 : 95 bpm Height: 5'2" SpO2: 96% Weight: 232 lbs 09/20/2013 Blood Pressure 1: 150/88 Code : 8480-6 BMI: 42.4 Code : 81340-1 Heart Rate 1 : 104 bpm Height: 5'2" Weight: 232 lbs 09/10/2013 Blood Pressure 1: 112/62 Code : 8480-6 Heart Rate 1: 88 bpm Weight: 238 lbs 08/19/2013 Blood Pressure 1: 102/58 Code : 8480-6 BMI: 43.7 Code : 36764-7 Heart Rate 1 : 80 bpm Height: 5'2" Weight: 239 lbs 08/12/2013 Blood Pressure 1: 110/60 Code : 8480-6 BMI: 43.3 Code : 76402-9 Heart Rate 1 : 90 bpm Height: 5'2" SpO2: 96% Weight: 236 lbs 8 oz 08/01/2013 Blood Pressure 1: 128/72 Code : 8480-6 BMI: 42.6 Code : 94881-6 Heart Rate 1 : 78 bpm Height: 5'2" SpO2: 97% Weight: 233 lbs 07/19/2013 Blood Pressure 1: 100/60 Code : 8480-6 BMI: 44.3 Code : 14665-0 Heart Rate 1 : 92 bpm Height: 5'2" Temperature: 36.2 (C) / 97.2 (F) Weight: 242 lbs 07/15/2013 Blood Pressure 1: 180/92 Code : 8480-6 Heart Rate 1: 115 bpm SpO2: 98% Weight: 06/27/2013 Blood Pressure 1: 114/64 Code : 8480-6 BMI: 44.1 Code : 88685-5 Heart Rate 1 : 114 bpm Height: 5'2" SpO2: 93% Weight: 241 lbs 06/10/2013 Blood Pressure 1: 174/86 Code : 8480-6 BMI: 44.1 Code : 93659-9 Heart Rate 1 : 132 bpm Height: 5'2" SpO2: 94% Temperature: 35.6 (C) / 96.0 (F) Weight: 241 lbs 05/07/2013 Blood Pressure 1: 160/88 Code : 8480-6 BMI: 43.5 Code : 59521-6 Heart Rate 1 : 108 bpm Height: 5'2" SpO2: 96% Weight: 238 lbs 04/16/2013 Blood Pressure 1: 116/62 Code : 8480-6 BMI: 44.6 Code : 13763-7 Heart Rate 1 : 90 bpm Height: 5'2" SpO2: 94% Weight: 244 lbs 03/21/2013 Blood Pressure 1: 102/64 Code : 8480-6 BMI: 42.8 Code : 22387-6 Height: 5'2" Weight: 234 lbs 02/12/2013 Blood Pressure 1: 130/78 Code : 8480-6 BMI: 42.0 Code : 19107-7 Heart Rate 1 : 100 bpm Height: 5'2" Weight: 229 lbs 8 oz 02/04/2013 Blood Pressure 1: 126/68 Code : 8480-6 BMI: 44.3 Code : 88223-9 Heart Rate 1 : 88 bpm Height: 5'2" Weight: 242 lbs 01/17/2013 Blood Pressure 1: 132/76 Code : 8480-6 Heart Rate 1: 121 bpm SpO2: 97% Weight: 242 lbs 12/31/2012 Blood Pressure 1: 144/90 Code : 8480-6 BMI: 43.0 Code : 70013-1 Heart Rate 1 : 96 bpm Height: 5'2" Temperature: 36.2 (C) / 97.2 (F) Weight: 235 lbs 12/20/2012 Blood Pressure 1: 156/96 Code : 8480-6 BMI: 42.4 Code : 49808-9 Heart Rate 1 : 96 bpm Height: [...] Code : 8480-6 BMI: 38.8 Code : 57817-4 Heart Rate 1 : 96 bpm Height: 5'2" Temperature: 36.3 (C) / 97.3 (F) Weight: 212 lbs 08/23/2012 Blood Pressure 1: 116/72 Code : 8480-6 BMI: 38.3 Code : 66574-9 Heart Rate 1 : 92 bpm Height: 5'2" Weight: 209 lbs 8 oz 08/13/2012 Blood Pressure 1: 140/92 Code : 8480-6 BMI: 37.3 Code : 38120-7 Heart Rate 1 : 104 bpm Height: 5'2" Weight: 204 lbs 08/07/2012 Blood Pressure 1: 148/98 Code : 8480-6 BMI: 36.6 Code : 71965-7 Heart Rate 1 : 102 bpm Height: [...] Code : 8480-6 BMI: 35.3 Code : 75047-4 Heart Rate 1 : 105 bpm Height: [...] Symptom Name Status Result Effective Date Notes diabetes mellitus Quality insulin dependent 04/10/2018 None [...] december - she was seen by her software educator again in mid 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 She states that she saw her software educator and was to be started on another [...] lesion Alleviating Factors medication 09/10/2013 went to [facility] on Monday and start on Cipro [...] differently. States she did eat BBQ from [employer] yesterday for lunch. hypertension Quality chronic [...] data Encounters Encounter Performer Location Codes Date 64967 EST. PATIENT, LEVEL IV Diagnosis: Essential (primary) hypertension[ICD10: I10] Diagnosis: Type 2 diabetes mellitus with hyperglycemia[ICD10: E11.65] Diagnosis: Generalized anxiety disorder[ICD10: F41.1] Diagnosis: Weakness[ICD10: R53.1] Rika Motta MD, [facility] CPT-4: 71257 04/10/2018 ([id number]) 03251 EST. PATIENT, LEVEL IV Diagnosis: Type 2 diabetes mellitus with hyperglycemia[ICD10: E11.65] Diagnosis: Low back pain[ICD10: M54.5] Diagnosis: Essential (primary) hypertension[ICD10: I10] Diagnosis: Generalized anxiety disorder[ICD10: F41.1] [facility] CPT-4: 97961 03/12/2018 ([id number]) [id number] EST. PATIENT, LEVEL III Diagnosis: Type 2 diabetes mellitus with hyperglycemia[ICD10: E11.65] Diagnosis: Essential (primary) hypertension[ICD10: I10] Diagnosis: Dysuria[ICD10: R30.0] Diagnosis: Vitamin D deficiency, unspecified[ICD10: E55.9] Diagnosis: Low back pain[ICD10: M54.5] Rika Motta MD, [facility] CPT-4: 68657 02/20/2018 ([id number]) 66030 EST. PATIENT, LEVEL III Diagnosis: Dysuria[ICD10: R30.0] Diagnosis: Essential (primary) hypertension[ICD10: I10] Rika Motta MD, [facility] CPT-4: 31802 11/27/2017 ([id number]) 02527 EST. PATIENT, LEVEL III Diagnosis: Type 2 diabetes mellitus with hyperglycemia[ICD10: E11.65] Diagnosis: Chronic pain syndrome[ICD10: G89.4] Rika Motta MD, [facility] CPT-4: 53534 09/15/2017 ([id number]) 69345 EST. 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 PATIENT, LEVEL III Diagnosis: Chronic maxillary sinusitis[ICD10: J32.0] Diagnosis: Type 2 diabetes mellitus with hyperglycemia[ICD10: E11.65] Diagnosis: Hordeolum externum left upper eyelid[ICD10: H00.014] Rika Motta MD, [facility] CPT-4: 96229 08/03/2017 ([id number]) 10796 EST. PATIENT, LEVEL IV Diagnosis: Type 2 diabetes mellitus with hyperglycemia[ICD10: E11.65] Diagnosis: Hordeolum externum left upper eyelid[ICD10: H00.014] Diagnosis: Essential (primary) hypertension[ICD10: I10] Diagnosis: Chronic obstructive pulmonary disease, unspecified[ICD10: J44.9] Rika Motta MD, [facility] CPT-4: 73329 07/27/2017 ([id number]) 25928 EST. PATIENT, LEVEL IV Diagnosis: Type 2 diabetes mellitus with hyperglycemia[ICD10: E11.65] Diagnosis: Essential (primary) hypertension[ICD10: I10] Tessie Motta MD, [facility] CPT-4: 04240 06/13/2017 58369 EST. PATIENT, LEVEL IV Diagnosis: Periapical abscess without sinus[ICD10: K04.7] Arlette Motta MD, [facility] CPT-4: 52565 04/21/2017 ([id number]) 79210 EST. PATIENT, LEVEL IV Diagnosis: Type 2 diabetes mellitus with hyperglycemia[ICD10: E11.65] Diagnosis: Cellulitis of abdominal wall[ICD10: L03.311] Diagnosis: Chronic pain syndrome[ICD10: G89.4] Diagnosis: Essential (primary) hypertension[ICD10: I10] Diagnosis: Unsteadiness on feet[ICD10: R26.81] Rika Motta MD, [facility] CPT-4: 86683 04/18/2017 ([id number]) 17384 EST. PATIENT, LEVEL IV Diagnosis: Type 2 diabetes mellitus with hyperglycemia[ICD10: E11.65] Diagnosis: Hypokalemia[ICD10: E87.6] Diagnosis: Essential (primary) hypertension[ICD10: I10] Diagnosis: Paroxysmal atrial fibrillation[ICD10: I48.0] Rika Motta MD, [facility] CPT-4: 02677 03/27/2017 ([id number]) 36645 EST. PATIENT, LEVEL IV Diagnosis: Essential (primary) hypertension[ICD10: I10] Diagnosis: Type 2 diabetes mellitus with hyperglycemia[ICD10: E11.65] Diagnosis: Hypokalemia[ICD10: E87.6] Diagnosis: Generalized abdominal pain[ICD10: R10.84] Rika Motta MD, [facility] CPT-4: 81786 02/27/2017 ([id number]) 32848 EST. PATIENT, LEVEL III Diagnosis: Drug induced constipation[ICD10: K59.03] Rika Motta MD, [facility] CPT-4: 75607 02/21/2017 ([id number]) 53349 EST. PATIENT, LEVEL IV Diagnosis: Generalized abdominal pain[ICD10: R10.84] Diagnosis: Hypokalemia[ICD10: E87.6] Diagnosis: Hypomagnesemia[ICD10: E83.42] Rika Motta MD, [facility] CPT-4: 44573 02/17/2017 ([id number]) 84949 EST. PATIENT, LEVEL IV Diagnosis: Paroxysmal atrial fibrillation[ICD10: I48.0] Diagnosis: Essential (primary) hypertension[ICD10: I10] Diagnosis: Chronic obstructive pulmonary disease, unspecified[ICD10: J44.9] Diagnosis: Type 2 diabetes mellitus with hyperglycemia[ICD10: E11.65] Diagnosis: Diarrhea, unspecified[ICD10: R19.7] Rika Motta MD, [facility] CPT-4: 29289 02/13/2017 ([id number]) 95188 EST. PATIENT, LEVEL IV Diagnosis: Type 2 diabetes mellitus with hyperglycemia[ICD10: E11.65] Diagnosis: Pain in right shoulder[ICD10: M25.511] Diagnosis: Chronic maxillary sinusitis[ICD10: J32.0] Rika Motta MD, [facility] CPT-4: 47156 01/30/2017 ([id number]) 27741 EST. PATIENT, LEVEL IV Diagnosis: Essential (primary) hypertension[ICD10: I10] Diagnosis: Type 2 diabetes mellitus with hyperglycemia[ICD10: E11.65] Diagnosis: Hypothyroidism, unspecified[ICD10: E03.9] Diagnosis: Generalized anxiety disorder[ICD10: F41.1] Diagnosis: Chronic pain syndrome[ICD10: G89.4] Diagnosis: Restless legs syndrome[ICD10: G25.81] Diagnosis: Obstructive sleep apnea (adult) (pediatric)[ICD10: G47.33] Rika Motta MD, [facility] CPT-4: 51796 01/16/2017 85248 EST. PATIENT, LEVEL IV Diagnosis: Other acute sinusitis[ICD10: J01.80] Diagnosis: Diplopia[ICD10: H53.2] Arlette Motta MD, [facility] CPT-4: 55490 12/13/2016 ([id number]) 41989 EST. PATIENT, LEVEL IV Diagnosis: Essential (primary) hypertension[ICD10: I10] Diagnosis: Fasciculation[ICD10: R25.3] Diagnosis: Generalized anxiety disorder[ICD10: F41.1] Diagnosis: Other obesity due to excess calories[ICD10: E66.09] Diagnosis: Zoster without complications[ICD10: B02.9] Diagnosis: Unilateral primary osteoarthritis, right knee[ICD10: M17.11] Diagnosis: Unsteadiness on feet[ICD10: R26.81] Rika Motta MD, [facility] CPT-4: 36171 11/11/2016 ([id number]) 47307 EST. PATIENT, LEVEL IV Diagnosis: Zoster without complications[ICD10: B02.9] Diagnosis: Type 2 diabetes mellitus with hyperglycemia[ICD10: E11.65] Diagnosis: Vomiting, unspecified[ICD10: R11.10] Rika Motta MD, [facility] CPT-4: 43343 10/28/2016 ([id number]) 92413 EST. PATIENT, LEVEL III Diagnosis: Pain in right knee[ICD10: M25.561] Diagnosis: Zoster without complications[ICD10: B02.9] Rika Motta MD, [facility] CPT-4: 65497 10/13/2016 ([id number]) 28975 EST. PATIENT, LEVEL IV Diagnosis: Acute recurrent maxillary sinusitis[ICD10: J01.01] Diagnosis: Low back pain[ICD10: M54.5] Diagnosis: Pain in right knee[ICD10: M25.561] Diagnosis: Allergic rhinitis due to pollen[ICD10: J30.1] Rika Motta MD, [facility] CPT-4: 24635 09/23/2016 ([id number]) 37255 EST. PATIENT, LEVEL IV Diagnosis: Pain in right shoulder[ICD10: M25.511] Diagnosis: Type 2 diabetes mellitus with hyperglycemia[ICD10: E11.65] Diagnosis: Cervicalgia[ICD10: M54.2] Diagnosis: Candidiasis of skin and nail[ICD10: B37.2] Diagnosis: Low back pain[ICD10: M54.5] Rika Motta MD, [facility] CPT-4: 29704 09/13/2016 ([id number]) 03054 EST. 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 PATIENT, LEVEL IV Diagnosis: Type 2 diabetes mellitus with hyperglycemia[ICD10: E11.65] Diagnosis: Candidiasis of skin and nail[ICD10: B37.2] Diagnosis: Chronic obstructive pulmonary disease, unspecified[ICD10: J44.9] Diagnosis: Paroxysmal atrial fibrillation[ICD10: I48.0] Diagnosis: Pneumonia, unspecified organism[ICD10: J18.9] Rika Motta MD, [facility] CPT-4: 71577 07/26/2016 ([id number]) 13647 EST. PATIENT, LEVEL IV Diagnosis: Type 2 diabetes mellitus with hyperglycemia[ICD10: E11.65] Diagnosis: Generalized anxiety disorder[ICD10: F41.1] Diagnosis: Essential (primary) hypertension[ICD10: I10] Diagnosis: Chronic pain syndrome[ICD10: G89.4] Rika Motta MD, [facility] CPT-4: 97071 05/24/2016 ([id number]) 85354 EST. PATIENT, LEVEL IV Diagnosis: Menopausal and female climacteric states[ICD10: N95.1] Diagnosis: Type 2 diabetes mellitus with hyperglycemia[ICD10: E11.65] Diagnosis: Generalized anxiety disorder[ICD10: F41.1] Rika Motta MD, [facility] CPT-4: 45318 04/19/2016 ([id number]) 85608 EST. PATIENT, LEVEL IV Diagnosis: Type 2 diabetes mellitus with hyperglycemia[ICD10: E11.65] Diagnosis: Generalized anxiety disorder[ICD10: F41.1] Diagnosis: Essential (primary) hypertension[ICD10: I10] Diagnosis: Dysuria[ICD10: R30.0] Rika Motta MD, [facility] CPT-4: 38246 04/11/2016 ([id number]) 48923 EST. PATIENT, LEVEL IV Diagnosis: Generalized anxiety disorder[ICD10: F41.1] Diagnosis: Major depressive disorder, single episode, mild[ICD10: F32.0] Diagnosis: Hypothyroidism, unspecified[ICD10: E03.9] Diagnosis: Type 2 diabetes mellitus with hyperglycemia[ICD10: E11.65] Rika Motta MD, [facility] CPT-4: 96313 03/21/2016 17715) 51779 EST. PATIENT, LEVEL IV Diagnosis: Type 2 diabetes mellitus with hyperglycemia[ICD10: E11.65] Diagnosis: Cellulitis of right lower limb[ICD10: L03.115] Diagnosis: Other elevated white blood cell count[ICD10: D72.828] Diagnosis: Localized edema[ICD10: R60.0] Rika Motta MD, [facility] CPT-4: 32249 03/11/2016 ([id number]) 02074 EST. PATIENT, LEVEL IV Diagnosis: Type 2 diabetes mellitus with hyperglycemia[ICD10: E11.65] Diagnosis: Localized edema[ICD10: R60.0] Diagnosis: Other conjunctivitis[ICD10: H10.89] Diagnosis: Obstructive sleep apnea (adult) (pediatric)[ICD10: G47.33] Diagnosis: Unspecified asthma, uncomplicated[ICD10: J45.909] Diagnosis: VAC STREP PNEUMONIAE-FLU[ICD10: Z23] Rika Motta MD, [facility] CPT-4: 44478 02/26/2016 [id number]) 13103 EST. PATIENT, LEVEL IV Diagnosis: Essential (primary) hypertension[ICD10: I10] Diagnosis: Paroxysmal atrial fibrillation[ICD10: I48.0] Diagnosis: Type 2 diabetes mellitus with hyperglycemia[ICD10: E11.65] Diagnosis: Obstructive sleep apnea (adult) (pediatric)[ICD10: G47.33] Diagnosis: Chronic obstructive pulmonary disease, unspecified[ICD10: J44.9] Rika Motta MD, [facility] CPT-4: 65624 02/02/2016 31739) 53448 EST. 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 PATIENT, LEVEL IV Diagnosis: Type 2 diabetes mellitus with hyperglycemia[ICD10: E11.65] Diagnosis: Generalized anxiety disorder[ICD10: F41.1] Diagnosis: Essential (primary) hypertension[ICD10: I10] Diagnosis: Restless legs syndrome[ICD10: G25.81] Diagnosis: Dysuria[ICD10: R30.0] Rika Motta MD, [facility] CPT-4: 34544 11/27/2015 13686 EST. PATIENT, LEVEL IV Diagnosis: Addisonian crisis[ICD10: E27.2] Arlette Motta MD, [facility] CPT-4 : 29671 11/12/2015 70467 EST. PATIENT, LEVEL IV Diagnosis: Acute bronchitis due to other specified organisms[ICD10: J20.8] Diagnosis: Other acute sinusitis[ICD10: J01.80] Diagnosis: Other malaise[ICD10: R53.81] Diagnosis: Cough[ICD10: R05] Arlette Motta MD, [facility] CPT-4: 02105 11/10/2015 46964 EST. PATIENT, LEVEL IV Diagnosis: Pain in left knee[ICD10: M25.562] Diagnosis: Cellulitis of right toe[ICD10: L03.031] Arlette Motta MD, [facility] CPT-4: 00264 10/27/2015 ([id number]) 95113 EST. PATIENT, LEVEL IV Diagnosis: Essential (primary) hypertension[ICD10: I10] Diagnosis: Localized edema[ICD10: R60.0] Diagnosis: Type 2 diabetes mellitus with hyperglycemia[ICD10: E11.65] Rika Motta MD, [facility] CPT-4: 40517 09/22/2015 ([id number]) 66305 EST. PATIENT, LEVEL IV Diagnosis: Essential (primary) hypertension[ICD10: I10] Diagnosis: Type 2 diabetes mellitus with hyperglycemia[ICD10: E11.65] Diagnosis: Cellulitis of right toe[ICD10: L03.031] Rika Motta MD, [facility] CPT-4: 82594 09/01/2015 ([id number]) 00549 EST. PATIENT, LEVEL IV Diagnosis: Type 2 diabetes mellitus with hyperglycemia[ICD10: E11.65] Diagnosis: Essential (primary) hypertension[ICD10: I10] Diagnosis: Generalized anxiety disorder[ICD10: F41.1] Diagnosis: Hypothyroidism, unspecified[ICD10: E03.9] Diagnosis: Body mass index (BMI) 40.0-44.9, adult[ICD10: Z68.41] Rika Motta MD, [facility] CPT-4: 45118 08/10/2015 23260 EST. PATIENT, LEVEL IV Diagnosis: Acute bronchitis due to other specified organisms[ICD10: J20.8] Diagnosis: Pain in left knee[ICD10: M25.562] Diagnosis: Type 2 diabetes mellitus with hyperglycemia[ICD10: E11.65] Arlette Motta MD, [facility] CPT-4: 03023 06/26/2015 ([id number]) 52595 EST. PATIENT, LEVEL IV Diagnosis: Cellulitis of right lower limb[ICD10: L03.115] Diagnosis: Type 2 diabetes mellitus with hyperglycemia[ICD10: E11.65] Diagnosis: Essential (primary) hypertension[ICD10: I10] Diagnosis: Edema, unspecified[ICD10: R60.9] Rika Motta MD, [facility] CPT-4: 27016 04/14/2015 ([id number]) 10454 EST. PATIENT, LEVEL IV Diagnosis: Essential (primary) hypertension[ICD10: I10] Diagnosis: Type 2 diabetes mellitus with hyperglycemia[ICD10: E11.65] Diagnosis: Localized edema[ICD10: R60.0] Diagnosis: Dysuria[ICD10: R30.0] Rika Motta MD, [facility] CPT-4: 83980 03/03/2015 ([id number]) 96471 EST. PATIENT, LEVEL III Diagnosis: Blister of leg[ICD9: 916.2] Diagnosis: Rash[ICD9: 782.1] Diagnosis: EDEMA[ICD9: 782.3] Tessie Motta MD, [facility] CPT-4: 02108 01/15/2015 ([id number]) 41180 EST. PATIENT, LEVEL IV Diagnosis: Cellulitis, leg[ICD9: 682.6] Diagnosis: DIABETES TYPE II[ICD9: 250.00] Tessie Motta MD, [facility] CPT- 4: 37121 01/01/2015 ([id number]) Miscellaneous no charge Diagnosis: CVA (cerebral vascular accident)[ICD9: 434.91] Isabella Motta MD, [facility] CPT-4: 39389 12/25/2014 ([id number]) 76456 EST. PATIENT, LEVEL IV Diagnosis: ESSENTIAL HYPERTENSION[ICD9: 401.9] Diagnosis: DM W/O COMPLICATION TYPE II, UNCONTROLLED[ICD9: 250.02] Diagnosis: EDEMA[ICD9: 782.3] Diagnosis: Dysuria[ICD9: 788.1] Rika Motta MD, [facility] CPT-4: 72192 11/04/2014 ([id number]) 23857 EST. PATIENT, LEVEL IV Diagnosis: EDEMA[ICD9: 782.3] Diagnosis: Cellulitis of right leg[ICD9: 682.6] Diagnosis: Allergic rhinitis[ICD9: 477.9] Rika Motta MD, [facility] CPT-4: 09027 09/08/2014 ([id number]) 53536 EST. PATIENT, LEVEL IV Diagnosis: EDEMA[ICD9: 782.3] Diagnosis: ESSENTIAL HYPERTENSION[ICD9: 401.9] Diagnosis: DIABETES TYPE II[ICD9: 250.00] Diagnosis: Cellulitis of right leg[ICD9: 682.6] Rika Motta MD, [facility] CPT-4: 92712 08/29/2014 ([id number]) 02937 EST. PATIENT, LEVEL III Diagnosis: EDEMA[ICD9: 782.3] Diagnosis: DIABETES TYPE II[ICD9: 250.00] Tessie Motta MD, [facility] CPT- 4: 09160 06/30/2014 ([id number]) 19469 EST. PATIENT, LEVEL IV Diagnosis: EDEMA[ICD9: 782.3] Diagnosis: DM W/O COMPLICATION TYPE II, UNCONTROLLED[ICD9: 250.02] Diagnosis: Sciatica[ICD9: 724.3] Tessie Motta MD, [facility] CPT-4: 40971 06/12/2014 ([id number]) 36554 EST. PATIENT, LEVEL III Diagnosis: Cellulitis, leg[ICD9: 682.6] Diagnosis: EDEMA[ICD9: 782.3] Rika Motta MD, [facility] CPT-4: 21362 05/26/2014 ([id number]) 46262 EST. PATIENT, LEVEL IV Diagnosis: DIABETES TYPE II[ICD9: 250.00] Diagnosis: Chronic sinusitis[ICD9: 473.9] Tessie Motta MD, [facility] CPT- 4: 91521 04/15/2014 ([id number]) 45568 EST. PATIENT, LEVEL IV Diagnosis: DM W/O COMPLICATION TYPE II, UNCONTROLLED[ICD9: 250.02] Diagnosis: CHRONIC SINUSITIS[ICD9: 473.9] Diagnosis: EDEMA[ICD9: 782.3] Diagnosis: Right knee pain[ICD9: 719.46] Rkia Motta MD, [facility] CPT-4: 07339 03/25/2014 ([id number]) 08351 EST. PATIENT, LEVEL IV Diagnosis: Blister of leg[ICD9: 916.2] Diagnosis: EDEMA[ICD9: 782.3] Diagnosis: DM W/O COMPLICATION TYPE II, UNCONTROLLED[ICD9: 250.02] Diagnosis: ESSENTIAL HYPERTENSION[ICD9: 401.9] Rika Motta MD, [facility] CPT-4: 30428 03/03/2014 ([id number]) 22560 EST. PATIENT, LEVEL IV Diagnosis: CELLULITIS OF LEG[ICD9: 682.6] Diagnosis: Diabetes mellitus type 2, uncontrolled[ICD9: 250.02] Diagnosis: ESSENTIAL HYPERTENSION[ICD9: 401.9] Diagnosis: EDEMA[ICD9: 782.3] Tessie Motta MD, [facility] CPT-4: 07969 02/13/2014 ([id number]) 68086 EST. PATIENT, LEVEL IV Diagnosis: Diabetes mellitus type 2, uncontrolled[ICD9: 250.02] Tessie Motta MD, [facility] CPT-4: 29514 01/27/2014 ([id number]) 05896 EST. PATIENT, LEVEL III Diagnosis: OPEN WND KNEE/LEG/ANKLE[ICD9: 891.0] Diagnosis: EDEMA[ICD9: 782.3] Rika Motta MD, [facility] CPT-4: 54406 12/26/2013 ([id number]) 10130 EST. PATIENT, LEVEL III Diagnosis: Cellulitis of right leg[ICD9: 682.6] Diagnosis: OPEN WND KNEE/LEG/ANKLE[ICD9: 891.0] Rika Motta MD, [facility] CPT-4: 16767 12/12/2013 ([id number]) 67268 EST. PATIENT, LEVEL IV Diagnosis: Asthma exacerbation[ICD9: 493.92] Diagnosis: COUGH[ICD9: 786.2] Diagnosis: EDEMA[ICD9: 782.3] Rika Motta MD, [facility] CPT-4: 16861 11/14/2013 ([id number]) 77808 EST. PATIENT, LEVEL III Diagnosis: OPEN WND KNEE/LEG/ANKLE[ICD9: 891.0] Diagnosis: EDEMA[ICD9: 782.3] Rika Motta MD, [facility] CPT-4: 39722 10/21/2013 ([id number]) 66272 EST. PATIENT, LEVEL IV Diagnosis: ESSENTIAL HYPERTENSION[SNOMED: 90049804] Diagnosis: Right knee pain[ICD9: 719.46] Diagnosis: OPEN WND KNEE/LEG/ANKLE[ICD9: 891.0] Rika Motta MD, [facility] CPT-4: 39936 10/03/2013 ([id number]) Miscellaneous no charge Diagnosis: Open wound of leg[ICD9: 891.0] Rika Motta MD, [facility] CPT-4: 28141 09/27/2013 79749 EST. PATIENT, LEVEL II Diagnosis: Open wound of leg[ICD9: 891.0] Diagnosis: Wrist pain, left[ICD9: 719.43] Rika Motta MD, [facility] CPT-4: 12403 09/23/2013 ([id number]) 33062 EST. PATIENT, LEVEL IV Diagnosis: CELLULITIS OF LEG[ICD9: 682.6] Diagnosis: ESSENTIAL HYPERTENSION[SNOMED: 51231568] Diagnosis: EDEMA[ICD9: 782.3] Rika Motta MD, [facility] CPT-4: 60540 09/20/2013 ([id number]) 98623 EST. PATIENT, LEVEL IV Diagnosis: Open wound of right lower leg[ICD9: 891.0] Diagnosis: DM W/O COMPLICATION TYPE II, UNCONTROLLED[SNOMED: 97800755] Diagnosis: Edema[ICD9: 782.3] Rika Motta MD, [facility] CPT-4: 03380 09/10/2013 ([id number]) 85243 EST. PATIENT, LEVEL III Diagnosis: DM W/O COMPLICATION TYPE II, UNCONTROLLED[SNOMED: 10141653] Diagnosis: EDEMA[ICD9: 782.3] Tessie Motta MD, [facility] CPT-4: 76866 08/19/2013 ([id number]) 12142 EST. PATIENT, LEVEL IV Diagnosis: EDEMA[ICD9: 782.3] Diagnosis: DIABETES TYPE II[SNOMED: 784884705] Diagnosis: HYPOTHYROIDISM[ICD9: 244.9] Diagnosis: LUMBAGO[ICD9: 724.2] Diagnosis: SCIATICA[ICD9: 724.3] Tessie Motta MD, [facility] CPT-4: 84227 08/12/2013 ([id number]) 57506 EST. PATIENT, LEVEL IV Diagnosis: DIABETES TYPE II[SNOMED: 587798263] Diagnosis: EDEMA[ICD9: 782.3] Diagnosis: HYPOTHYROIDISM[ICD9: 244.9] Diagnosis: Encounter for long-term (current) use of other medications[ICD9: V58.69] Diagnosis: LUMBAGO[ICD9: 724.2] Rika Motta MD, [facility] CPT-4: 18182 08/01/2013 ([id number]) 63216 EST. PATIENT, LEVEL III Diagnosis: Blister of right foot[ICD9: 917.2] Rika Motta MD, [facility] CPT-4: 23402 07/19/2013 ([id number]) 77082 EST. PATIENT, LEVEL III Diagnosis: Cellulitis of right leg[ICD9: 682.6] Diagnosis: ESSENTIAL HYPERTENSION[SNOMED: 97354506] Diagnosis: EDEMA[ICD9: 782.3] Rika Motta MD, [facility] CPT-4: 42498 07/15/2013 ([id number]) 18986 EST. PATIENT, LEVEL IV Diagnosis: DIABETES TYPE II[SNOMED: 784481016] Diagnosis: BACKACHE[ICD9: 724.5] Diagnosis: Muscle spasms of neck[ICD9: 728.85] Tessie Motta MD [facility] CPT-4: 80304 06/27/2013 ([id number]) 09479 EST. PATIENT, LEVEL IV Diagnosis: DM W/O COMPLICATION TYPE II, UNCONTROLLED[SNOMED: 88998418] Diagnosis: EDEMA[ICD9: 782.3] Diagnosis: OBESITY[ICD9: 278.00] Diagnosis: WHEEZING[ICD9: 786.07] Tessie Motta MD, [facility] CPT-4: 44739 06/10/2013 ([id number]) 74019 EST. PATIENT, LEVEL IV Diagnosis: CHRONIC SINUSITIS[ICD9: 473.9] Diagnosis: WHEEZING[ICD9: 786.07] Diagnosis: ACUTE BRONCHITIS[ICD9: 466.0] Diagnosis: Back pain[ICD9: 724.5] Tessie Motta MD, [facility] CPT-4: 06062 05/07/2013 ([id number]) 35793 EST. PATIENT, LEVEL IV Diagnosis: EDEMA[ICD9: 782.3] Diagnosis: COPD (chronic obstructive pulmonary disease) with acute bronchitis[ ICD9: 491.22] Tessie Motta MD [facility] CPT-4: 72004 04/16/2013 ([id number]) 41588 EST. PATIENT, LEVEL IV Diagnosis: Lumbago[ICD9: 724.2] Diagnosis: DM W/O COMPLICATION TYPE II, UNCONTROLLED[SNOMED: 73217767] Diagnosis: EDEMA[ICD9: 782.3] Rika Motta MD, [facility] CPT-4: 82198 03/21/2013 ([id number]) 54522 EST. PATIENT, LEVEL IV Diagnosis: Abdominal pain[ICD9: 789.00] Diagnosis: EDEMA[ICD9: 782.3] Diagnosis: DIABETES TYPE II[SNOMED: 380044339] Tessie Motta MD, [facility] CPT-4: 51059 02/12/2013 ([id number] 81058 EST. PATIENT, LEVEL III Diagnosis: EDEMA[ICD9: 782.3] Diagnosis: RESPIRATORY ABNORM NEC[ICD9: 786.09] Tesise Motta MD [facility] CPT-4: 93452 02/04/2013 ([id number]) 66020 EST. PATIENT, LEVEL IV Diagnosis: Edema[ICD9: 782.3] Diagnosis: ESSENTIAL HYPERTENSION[SNOMED: 71177740] Tessie Motta MD [facility] CPT-4: 92610 01/17/2013 ([id number]) 91169 EST. PATIENT, LEVEL IV Diagnosis: ESSENTIAL HYPERTENSION[SNOMED: 56987258] Diagnosis: Diabetic leg ulcer[ICD9: 250.80] Diagnosis: Callus[ICD9: 700] Diagnosis: Urinary urgency[ICD9: 788.63] Diagnosis: HYPOTHYROIDISM[ICD9: 244.9] Rika Motta MD [facility] CPT-4: 26309 12/31/2012 ([id number]) 23956 EST. PATIENT, LEVEL IV Diagnosis: Cellulitis of left leg[ICD9: 682.6] Diagnosis: DIABETES TYPE II[SNOMED: 110506883] Diagnosis: ESSENTIAL HYPERTENSION[SNOMED: 55990045] Diagnosis: EDEMA[ICD9: 782.3] Rika Motta MD [facility] CPT-4: 86380 12/20/2012 ([id number]) 56020 EST. PATIENT, LEVEL III Diagnosis: Acute bronchitis[ICD9: 466.0] Diagnosis: COUGH[ICD9: 786.2] Tessie Motta MD [facility] CPT-4: 20336 10/29/2012 ([id number]) 21795 EST. PATIENT, LEVEL IV Diagnosis: ESSENTIAL HYPERTENSION[SNOMED: 73888298] Diagnosis: DIABETES TYPE II[SNOMED: 067398496] Diagnosis: HYPOTHYROIDISM[ICD9: 244.9] Tessie Motta MD [facility] CPT- 4: 41521 09/06/2012 [id number]) 22345 EST. PATIENT, LEVEL IV Diagnosis: DIABETES TYPE II[SNOMED: 394742362] Diagnosis: ESSENTIAL HYPERTENSION[SNOMED: 09861728] Diagnosis: Diarrhea[ICD9: 787.91] Tessie Motta MD, [facility] CPT-4: 77330 08/23/2012 ([id number]) 74305 EST. PATIENT, LEVEL III Diagnosis: ESSENTIAL HYPERTENSION[SNOMED: 39581767] Diagnosis: Gastroenteritis[ICD9: 558.9] Rika Motta MD [facility] CPT-4: 58716 08/13/2012 ([id number]) 74506 EST. PATIENT, LEVEL IV Diagnosis: Diarrhea[ICD9: 787.91] Diagnosis: ESSENTIAL HYPERTENSION[SNOMED: 11101097] Diagnosis: DM W/O COMPLICATION TYPE II, UNCONTROLLED[SNOMED: 23409386] Rika Motta MD, [facility] CPT-4: 74877 08/07/2012 ([id number]) 91026 EST. PATIENT, LEVEL III Diagnosis: Acute sinusitis[ICD9: 461.9] Diagnosis: Thrush[ICD9: 112.0] Rika Motta MD [facility] CPT-4: 03313 07/06/2012 ([id number]) 29694 EST. PATIENT, LEVEL IV Diagnosis: ESSENTIAL HYPERTENSION[SNOMED: 92511231] Diagnosis: DIABETES TYPE II[SNOMED: 467439674] Tessie Motta MD [facility] CPT-4: 52060 06/07/2012 ([id number]) 39982 EST. PATIENT, LEVEL IV Diagnosis: ESSENTIAL HYPERTENSION[SNOMED: 23410263] Diagnosis: ACUTE SINUSITIS[ICD9: 461.9] Diagnosis: Labial cyst[ICD9: 624.8] Tessie Motta MD [facility] CPT-4: 14650 05/28/2012 ([id number]) 99021 EST. PATIENT, LEVEL IV Diagnosis: ESSENTIAL HYPERTENSION[SNOMED: 51627780] Diagnosis: EDEMA[ICD9: 782.3] Tessie Motta MD, [facility] CPT-4: 44475 05/17/2012 ([id number]) 73306 EST. PATIENT, LEVEL IV Diagnosis: EDEMA[ICD9: 782.3] Diagnosis: ESSENTIAL HYPERTENSION[SNOMED: 11579783] Diagnosis: Diarrhea[ICD9: 787.91] Diagnosis: ALLERGIC RHINITIS[ICD9: 477.9] Tessie Motta MD, [facility] CPT- 4: 60544 05/02/2012 ([id number]) 14786 EST. PATIENT, LEVEL IV Diagnosis: ACUTE SINUSITIS[ICD9: 461.9] Diagnosis: ESSENTIAL HYPERTENSION[SNOMED: 57559575] Diagnosis: ALLERGIC RHINITIS[ICD9: 477.9] Tessie Motta MD [facility] CPT- 4: 48009 04/10/2012 ([id number]) 14830 EST. PATIENT, LEVEL IV Diagnosis: ESSENTIAL HYPERTENSION[SNOMED: 77405435] Diagnosis: Foreign body in foot or toe[ICD9: 917.6] Diagnosis: EDEMA[ICD9: 782.3] Tessie Motta MD [facility] CPT-4: 81537 02/27/2012 ([id number]) 84712 EST. PATIENT, LEVEL IV Diagnosis: CELLULITIS OF FOOT[ICD9: 682.7] Diagnosis: DIABETES TYPE II[SNOMED: 226718841] Diagnosis: EDEMA[ICD9: 782.3] Tessie Motta MD [facility] CPT-4: 65046 02/15/2012 ([id number]) 27627 EST. PATIENT, LEVEL IV Diagnosis: EDEMA[ICD9: 782.3] Diagnosis: ESSENTIAL HYPERTENSION[SNOMED: 86399805] Diagnosis: ACUTE SINUSITIS[ICD9: 461.9] Diagnosis: Dysuria[ICD9: 788.1] Tessie Motta MD [facility] CPT-4: 36746 02/01/2012 ([id number]) 77511 EST. PATIENT, LEVEL IV Diagnosis: DIABETES TYPE II[SNOMED: 875569926] Diagnosis: Diverticulitis[ICD9: 562.11] Tessie Motta MD [facility] CPT- 4: 19114 12/14/2011 ([id number]) 60247 EST. PATIENT, LEVEL IV Diagnosis: Nausea vomiting and diarrhea[ICD9: 787.01] Diagnosis: ESSENTIAL HYPERTENSION[SNOMED: 54238018] Diagnosis: DM W/O COMPLICATION TYPE II, UNCONTROLLED[SNOMED: 81395227] Tessie Motta MD [facility] CPT-4: 69511 11/30/2011 ([id number]) 22171 EST. PATIENT, LEVEL IV Diagnosis: ESSENTIAL HYPERTENSION[SNOMED: 38142024] Diagnosis: DIABETES TYPE II[SNOMED: 498386051] Diagnosis: COUGH[ICD9: 786.2] Tessie Motta MD, [facility] CPT-4: 66072 11/17/2011 ([id number]) Patient admitted to the hospital from clinic (NO CHARGE) Diagnosis: Tachycardia[ICD9: 785.0] Diagnosis: Dyspnea[ICD9: 786.09] Diagnosis: Wheezing[ICD9: 786.07] Diagnosis: FALL AGAINST OBJECT[ICD9: E888.1] Diagnosis: ANXIETY STATE[ICD9: 300.00] Diagnosis: ESSENTIAL HYPERTENSION[SNOMED: 35020187] Diagnosis: Chronic depression[ICD9: 311] Diagnosis: Diabetes mellitus type 2, uncontrolled[SNOMED: 05497303] Tessie Motta MD, [facility] CPT-4: 70001B 11/03/2011 ([id number]) 31916 EST. PATIENT, LEVEL IV Diagnosis: DIABETES TYPE II[SNOMED: 282910502] Diagnosis: ANXIETY STATE[ICD9: 300.00] Diagnosis: DEPRESSIVE DISORDER NEC[ICD9: 311] Diagnosis: Ulcer of toe[ICD9: 707.15] Tessie Motta MD, [facility] CPT- 4: 57112 10/24/2011 ([id number]) 04327 EST. PATIENT, LEVEL IV Diagnosis: EDEMA[ICD9: 782.3] Diagnosis: ESSENTIAL HYPERTENSION[SNOMED: 06521117] Diagnosis: ANXIETY STATE[ICD9: 300.00] Tessie Motta MD, [facility] CPT- 4: 04273 09/26/2011 09163 EST. PATIENT, LEVEL IV Diagnosis: EDEMA[ICD9: 782.3] Diagnosis: ESSENTIAL HYPERTENSION[SNOMED: 07454163] [facility] CPT-4: 05062 09/20/2011 ([id number]) 49158 EST. PATIENT, LEVEL IV Diagnosis: ACUTE SINUSITIS[ICD9: 461.9] Diagnosis: Allergic rhinitis[ICD9: 477.9] Diagnosis: Cough[ICD9: 786.2] Tessie Motta MD, [facility] CPT-4: 80816 09/01/2011 ([id number]) 68803 EST. PATIENT, LEVEL IV Diagnosis: Chronic sinusitis[ICD9: 473.9] Diagnosis: Anxiety, generalized[ICD9: 300.02] Tessie Motta MD, [facility] CPT-4: 00252 08/15/2011 70322 EST. PATIENT, LEVEL IV Diagnosis: ACUTE SINUSITIS[ICD9: 461.9] Diagnosis: Tachycardia[ICD9: 785.0] Diagnosis: Anxiety[ICD9: 300.00] Diagnosis: Dehydration[ICD9: 276.51] Diagnosis: Sciatica[ICD9: 724.3] Tessie Motta MD, [facility] CPT-4: 01029 08/09/2011 37241 EST. PATIENT, LEVEL IV Diagnosis: DIABETES TYPE II[SNOMED: 874917139] Diagnosis: Sciatica[ICD9: 724.3] Diagnosis: Yeast infection[ICD9: 112.9] Tessie Motta MD, [facility] CPT- 4: 90358 08/01/2011 ([id number]) 43407 EST. PATIENT, LEVEL IV Diagnosis: DIABETES TYPE II[SNOMED: 492792815] Diagnosis: ACUTE MAXILLARY SINUSITIS[ICD9: 461.0] Diagnosis: Fibromyalgia[ICD9: 729.1] Tessie Motta MD, [facility] CPT-4: 09742 06/20/2011 64499 EST. PATIENT, LEVEL IV Diagnosis: ESSENTIAL HYPERTENSION[SNOMED: 45513786] Diagnosis: DIABETES TYPE II[SNOMED: 382063830] Diagnosis: ACUTE MAXILLARY SINUSITIS[ICD9: 461.0] Tessie Motta MD, [facility] CPT-4: 31056 04/18/2011 Plan of Care Planned Activity Notes Codes Status Date Appointment: Nurse Visit 04/17/2018 Visit Plan: Hypertension [...] and return Monday for removal of IPRO Ccletsa-khtsktccya-fh changes in medications-recommend counseling-patient refuses Weakness-patient is deconditioned-refuses PT -recommend patient start walking more 04/10/2018 Appointment: Rika Bello WPtel: [facility]5 [phone] (15 min) Moderate 04/10/2018 Patient Education: Patient Medication Summary Completed 04/10/2018 Appointment: Arlette Skelton WPtel: [address] [place], [place] [phone] (15 min) Moderate 03/21/2018 Appointment: Rika Bello WPtel: [address] [place], [place] [phone] (30 min) Complex 03/20/2018 Visit Plan: Hypertension [...] as directed 03/12/2018 Appointment: Rika Bello WPtel: [address] [place], [place] [phone] (15 min) Moderate 03/12/2018 Patient Education: Patient Medication Summary Completed 03/12/2018 Patient Education: Back Pain Completed 03/12/2018 Appointment: Rika Bello WPtel: [address] [place], [place] [phone] (30 min) Complex 03/08/2018 Appointment: Lab Draw [...] next refill 02/20/2018 Appointment: Rika Bello WPtel: [facility]5 [address] (15 min) Moderate 02/20/2018 Patient Education: Patient Medication Summary Completed 02/20/2018 Patient Education: Back Pain Completed 02/20/2018 Patient Education: Patient Medication Summary Completed 02/20/2018 Care Plan: Iron Pending 02/20/2018 Appointment: Rika Bello WPtel: [facility]5 [phone] [place] (30 min) Complex 02/19/2018 Appointment: Rika Bello WPtel: [facility]5 [phone] (15 min) Moderate 02/01/2018 Visit Plan: UA negative -no culture indicated 12/14/2017 Appointment: Lab Draw 12/14/2017 Patient Education: Patient Medication Summary Completed 12/14/2017 Visit Plan: Dysuria-urinary incontinence-culture urine HTN- elevated today-monitor at home -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 11/27/2017 Appointment: Rika Bello WPtel: [facility]5 [phone] [place] (15 min) Moderate 11/27/2017 Patient Education: [...] Completed 10/27/2017 Care Plan: SCREENINGMAMMOGRAPHYDIGITAL LOINC : 57959-9 Pending 10/27/2017 Appointment: [phone] [place] (15 min) Moderate 10/03/2017 Appointment: [facility] [place] (15 min) Moderate 10/02/2017 Appointment: [phone] [place] (30 min) Complex 09/29/2017 Visit [...] worsened. 09/27/2017 Appointment: [phone] (30 min) Complex 09/27/2017 Patient Education: Patient Medication Summary Completed 09/27/2017 Care Plan: [facility]44[facility]3 Pending 09/27/2017 Visit Plan: DM-patient noncompliant with [...] over- medication. 09/15/2017 Appointment: Rika Bello WPtel: [facility]5 [phone] (30 min) Complex 09/15/2017 Patient Education: Patient Medication Summary Completed 09/15/2017 Appointment: Rika Bello WPtel: [phone] [phone] (30 min) Complex 09/12/2017 Appointment: Rika Bello WPtel: [phone] [phone] (30 min) Complex 09/07/2017 Visit Plan: Cwv-fambforjwb-gv changes Anemia-check cbc today Dental infection-on clindamycin per Dr Bryant-start probiotics Also needs to monitor blood sugars closely 08/18/2017 Appointment: Rika Belol WPtel: [address] [phone] (30 min) Complex 08/18/2017 Patient Education: [...] resolve 08/03/2017 Appointment: [phone] (30 min) Complex 08/03/2017 Patient Education: [...] symptoms worsen 07/27/2017 Appointment: Rika Bello WPtel: 101 [phone] (30 min) Complex 07/27/2017 Patient Education: Patient [...] medications 06/13/2017 Appointment: Tessie Motta WPtel: [phone] [facility] (15 min) Moderate 06/13/2017 Patient Education: Patient Medication Summary Completed 06/13/2017 Visit Plan: Dental abscess - will send RX - pt is to keep her appointment with her dentist - pt is to notify clinic if symptoms do not improve, if they worsen, or with any other acute changes, questions, or concerns. 04/21/2017 Appointment: Ar[facility] Skelton [phone] [facility] (30 min) Complex 04/21/2017 Patient Education: [...] Q HS RESCHEDULE APPT WITH DR YANNA HoNdrfovsqs-hmlkuhgfg-oo for bactroban ointment provided and instructed on use EZW-edppigpzbt-jq change in medications Mildly elevated liver enzymes-discussed with Dr motta-suspect due to gabapentin-will monitor levels Gait instability-again recommend patient use walker as well as PT 04/18/2017 Appointment: [facility]ello [facility]el[phone] [phone] (30 min) Complex 04/18/2017 Patient Education: [...] become less controlled. Low potassium- check labs VPP-vysponmnyu-hm changes Afib-check digoxin level with labs Abdominal [...] become less controlled. Low potassium- check labs GPV-uotmohjtqn-ar changes Afib-check digoxin level with labs Abdominal pain-refill levsin for prn use -call if pain uncontrolled 03/27/2017 Appointment: Rika Bello WPtel: [facility]6 [phone] (30 min) Complex 03/27/2017 Patient Education: Patient Medication Summary Completed 03/27/2017 Appointment: Rika Bello WPtel: [address] [place], [place] [phone] (30 min) Complex 03/24/2017 Visit Plan: Hypertension - well controlled - continue with current medications, continue with no added salt diet. Pt has been encouraged to exercise daily. The pt has been advised to call the office if there are any acute concerns about change in blood pressure readings at home. DM-uncontrolled- discussed strict diet and exercise with patient Low uvrcwxshl-fwzuooxn-sitzysyp to monitor Abd mcwf-jghnqffx-rc changes 02/27/2017 Appointment: Rika Bello WPtel: [facility]0 [phone] [place] (30 min) Complex 02/27/2017 Patient Education: Patient [...] this regimen. 02/21/2017 Appointment: Rika Bello WPtel: [facility]9 [phone] (30 min) Complex 02/21/2017 Patient Education: Patient Medication Summary Completed 02/21/2017 Appointment: Rika Bello WPtel: [phone] (30 min) Complex 02/20/2017 Visit Plan: Generalized [...] labs on Monday02/17/2017 Appointment: Rika Bello WPtel: [facility]5 [phone] (30 min) Complex 02/17/2017 Patient Education: Patient Medication Summary Completed 02/17/2017 Visit Plan: COPD-recent hospitalization with pneumonia- symptoms improved-discussed continuous oxygen use at home-appt with Dr Odonnell tomorrow Afib-check digoxin level-patient just finished zpack Diarrhea-continue probiotics-check stool if diarrhea persists DM-bring log to next appt 02/13/2017 Appointment: Rika Bello WPtel: [address] [place], [place] [phone] (30 min) Complex 02/13/2017 Patient Education: Patient Medication Summary Completed 02/13/2017 Patient Education: Hypertension Completed 02/13/2017 Visit Plan: DM-very uncontrolled-refer to Dr Raines for management RIght shoulder and arm pain-fell 5 days ago-xray shoulder and arm Chronic sinusitis-RX for Dr Cervantes's compound gentamicin nasal spray 01/30/2017 Appointment: Rika Bello WPtel: [address] [place], [place] [phone] (30 min) Complex 01/30/2017 Patient Education: Patient Medication Summary Completed 01/30/2017 Care Plan: Referral Order SNOMED-CT : 184237311 Pending 01/30/2017 Visit Plan: Hypertension - well [...] every night DM-check Hgb A1C Hypothyroidism-check level Xmrhyes-xwtxntsauw-rau well controlled- increase cymbalta-recommend counseling 01/16/2017 Appointment: Rika Bello WPtel: [facility]5 [phone] (30 min) Complex 01/16/2017 Patient Education: Patient Medication Summary Completed 01/16/2017 Appointment: Rika Bello WPtel: [facility]5 [phone] (30 min) Complex 01/10/2017 Visit Plan: Sinusitis [...] or concerns. 12/13/2016 Appointment: Arlette Skelton WPtel: [facility]5 [facility]6[address] (30 min) Complex 12/13/2016 Patient Education: Patient [...] heal. 11/11/2016 Appointment: Rika Bello WPtel: [address] [place] [address] (30 min) Complex 11/11/2016 Patient Education: Patient Medication Summary Completed 11/11/2016 Care Plan: BMI Above normal followup SELF-MGMT EDUC & TRAIN 1 PT Pending 2016 Appointment: Rika Bello WPtel: [address] [place] [address] (30 min) Complex 11/08/2016 Visit Plan: Shingles-rash scabbed-no further treatment indicated-patient to call if pain uncontrolled N/V-check labs including UA DM- check labs today Thrush-RX for nystatin 10/28/2016 Appointment: Rika Bello WPtel: [address] [place], [place] [phone] (30 min) Complex 10/28/2016 Patient Education: Patient Medication Summary Completed 10/28/2016 Patient Education: Obesity Completed 10/28/2016 Appointment: Rika Bello WPtel: [phone] [phone] (30 min) Complex 10/25/2016 Appointment: Lab Draw 10/21/2016 Patient Education: Patient Medication Summary Completed 10/21/2016 Visit Plan: Right knee pain-patient to schedule appt with Dr Allison Garcia-right arm-concerned for shingles-RX for acyclovir provided and instructed on use-call if symptoms do not resolve or if any worse. 10/13/2016 Appointment: Rika Bello WPtel: [address] [place], [place] [phone] (30 min) Complex 10/13/2016 Patient Education: Patient Medication Summary Completed 10/13/2016 Appointment: Rika Bello WPtel: [phone] (30 min) Complex 10/11/2016 Appointment: Rika Bello WPtel: [facility]3 [phone] [facility] - Annual Wellness Visit 10/04/2016 Visit Plan: [...] as directed. 09/23/2016 Appointment: Rika Bello WPtel: [phone] (15 min) Moderate 09/23/2016 Patient Education: Patient [...] 09/13/2016 Care Plan: Referral Order SNOMED-CT : 663602104 Pending 09/13/2016 Appointment: Rika Bello WPtel: [address] [place], [place] [phone] [address] (30 min) Complex 09/09/2016 Appointment: Rika Bello WPtel: [address] [place], [place] [phone] [address] (30 min) Complex 09/08/2016 Visit Plan: Hypertension [...] Anemia-check CBC 08/09/2016 Appointment: Rika Bello WPtel: [address] [place], [place] [phone] [address] (30 min) Complex 08/09/2016 Patient Education: [...] control. Yeast infection -rx for nystatin powder NMPZ-wlszvqinl-tmzfku pneumonia -afib-patient is oxygen dependent due to [...] control. Yeast infection -rx for nystatin powder SWTZ-jezuqttmq-hlzonf pneumonia -afib-patient is oxygen dependent due to [...] control. Yeast infection -rx for nystatin powder HBCU-knkoxhrsk-rqfwja pneumonia -afib-patient is oxygen dependent due to severely compromised pulmonary and cardiac systems-will send orders to [facility] to continue oxygen 07/26/2016 Appointment: Rika Bello WPtel: [phone] (30 min) Complex 07/26/2016 Patient Education: Patient Medication Summary Completed 07/26/2016 Appointment: Rika Bello [facility]Ptel: [phone] [place] (30 min) Complex 07/22/2016 Appointment: Rika Bello WPtel: [phone] [phone] [place] (30 min) Complex 07/18/2016 Appointment: Rika Bello WPtel: 1010 [phone] (30 min) Complex 07/01/2016 Appointment: Lab Draw 06/24/2016 Patient Education: Patient Medication Summary Completed 06/24/2016 Appointment: Rika Bello WPtel: [phone] [phone] (30 min) Complex 2016 Visit Plan: Diabetes [...] Obesity Completed 05/24/2016 Appointment: R[facility] Bello [facility]Ptel[phone] [place] (30 min) Complex 05/17/2016 Visit Plan: Vaginal [...] glucose control. 04/19/2016 Appointment: Rika Bello WPtel: [facility]8 [phone] (30 min) Complex 04/19/2016 Patient Education: Patient Medication Summary Completed 04/19/2016 Patient Education: Obesity Completed 04/19/2016 Appointment: Rika Bello WPtel: [phone] [phone] (30 min) Complex 04/18/2016 Visit Plan: Diabetes [...] to allow for greater blood glucose control. ULN-xkphkqmvnn-sc changes in medications at this time. Dysuria-UA negative-needs pelvic exam due to pt c/o vaginal discharge 04/11/2016 Appointment: Rika Bello WPtel: [phone] [place] (30 min) Complex 04/11/2016 Patient Education: Patient Medication Summary Completed 04/11/2016 Patient Education: Obesity Completed 04/11/2016 Appointment: Riak Bello WPtel: [phone] [place] (30 min) Complex 04/08/2016 Visit Plan: [...] peripheral edema. 03/11/2016 Appointment: Rika Bello WPtel: [address] [place], [place] [phone] (30 min) Complex 03/11/2016 Patient Education: Patient [...] on use 02/26/2016 Appointment: Rika Bello WPtel: 101 [phone] (30 min) Complex 02/26/2016 Patient Education: Patient Medication Summary Completed 02/26/2016 Appointment: Rika Bello WPtel: [phone] [phone] (30 min) Complex 02/25/2016 Appointment: Rika Bello WPtel: 1015 [phone] (30 min) Complex 02/23/2016 Appointment: Lab Draw [...] to mold 02/02/2016 Appointment: Rika Bello WPtel: 1010 [facility] [place] [address] (30 min) Complex 02/02/2016 Patient Education: Patient Medication Summary Completed 02/02/2016 Appointment: Tessie Motta WPtel: [address] [place], [place] [address] (15 min) Moderate 01/21/2016 Appointment: Rika Bello WPtel: [address] [place], [place] [phone] [place] [address] (30 min) Complex 01/14/2016 Visit Plan: Hypertension [...] Patient Medication Summary Completed 12/17/2015 Visit Plan: Hvrzuim-modswoyig-leei head injury on 12/05-did not go to ER-patient sent for STAT CT scan of head-schedule appt with Dr Dyer Adrenal insufficiency-patient suddenly stopped prednisone-instructed patient to restart and taper prednisone as directed Rib gjgg-wkked-nowzzn fall-xray ribs 12/08/2015 Appointment: Riak Bello WPtel: [facility]5 [phone] [place] [address] (30 min) Complex 12/08/2015 Appointment: Rika Bello WPtel: [address] [place], [place] [phone] [place] [address] (15 min) Moderate 12/08/2015 Patient Education: Patient Medication Summary Completed 12/08/2015 Care Plan: COMPLETE CBC AUTOMATED LOINC : 02008-6 Pending 12/08/2015 Visit Plan: Hypertension - well [...] Mejia 10/27/2015 Appointment: Rika Bello WPtel: 101[address] [phone] (30 min) Complex 10/27/2015 Patient Education: Patient Medication Summary Completed 10/27/2015 Patient Education: Obesity Completed 10/27/2015 Care Plan: Referral Order SNOMED-CT : 135932000 Pending 10/27/2015 Referral: Matt Pavon HPtel:[phone] [facility] Referral Initiated 10/21/2015 Visit Plan: Medicare [...] pain. 09/29/2015 Appointment: [facility]Ptel[phone] [facility] - Welcome to Medicare visit 09/29/2015 Patient Education: Patient Medication Summary Completed 09/29/2015 Patient Education: Obesity Completed 09/29/2015 Care Plan: Referral Order SNOMED-CT : 032212401 Pending 09/29/2015 Care Plan: BMI Above normal [...] min) Complex 05/05/2015 Appointment: Rika Bello WPtel: [phone] (30 min) Complex 04/27/2015 Visit Plan: [...] Completed 03/03/2015 Appointment: Rika Bello WPtel: [phone] [phone] [place] (30 min) Complex 02/24/2015 Appointment: (30 min) Complex 01/29/2015 Appointment: Tessie Motta [facility]Ptel: [phone] [place] (15 min) Moderate 01/22/2015 Visit Plan: Blister of right lower leg-fluids removed with #27 gauze needle and compression dressing applied-refer to wound care for evaluation and management-patient is at high risk of developing large ulcer due to diabetes, noncompliance and poor hygiene. Rash right leg-start oral abx and bactroban as directed Viyne-nmkkskozoapz-pyr markie wraps, elevate leg, and again instructed [...] eating out. 01/01/2015 Appointment: Tessie Motta WPtel: [facility] (15 min) Moderate 01/01/2015 Patient Education: Patient [...] Care Plan: COMPLETE CBC AUTOMATED LOINC : 06008-7 Ordered 11/04/2014 Care Plan: URINALYSIS NONAUTO W/O SCOPE LOINC : 01639-1 Ordered 11/04/2014 Appointment: Follow up 10/07/2014 Visit Plan: Edema - pt has been advised to elevate legs to prevent dependent edema, compression has been recommended to help to naturally decrease peripheral edema. Diuretic use has been discussed and pt has been instructed in appropriate use of such medication as necessary to further attempt to reduce peripheral edema. Lfnaoeerqd-mkplbrul-gp change in treatment- continue compression hose-decrease salt/sodium in diet-call if symptoms worsen or do not resolve Goepanoix-egbdtgq-btuezlyf nasonex to twice daily as directed 09/08/2014 [...] worsen. 06/12/2014 Appointment: Rika Bello WPtel: 1015 [phone] [place] [address] Follow up 06/12/2014 Patient Education: Patient Medication Summary Completed 06/12/2014 Patient Education: .Amazing charts Exercise for Sciatica Completed 06/12/2014 Care Plan: COMPLETE CBC AUTOMATED LOINC : 82760-6 Ordered 06/12/2014 Visit Plan: Cellulitis - continue [...] Summary Completed 05/26/2014 Appointment: Tessie Motta WPtel: [facility]5 [facility] Lab Draw 04/21/2014 Patient Education: Patient Medication [...] at home. 02/13/2014 Appointment: Tessie Motta WPtel: [facility] Follow up 02/13/2014 Patient Education: Patient Medication [...] units daily. 01/27/2014 Appointment: Tessie Motta WPtel: [address] [place], [place] [phone] Follow up 01/27/2014 Patient Education: Patient Medication Summary Completed 01/27/2014 Appointment: Rika Bello WPtel: [facility]7 [phone] Follow up 01/02/2014 Visit Plan: Open wound of kyv-atmxwqie-dubnuidx with dressing changes as directed-call for increase [...] Summary Completed 12/26/2013 Appointment: Tessie Motta WPtel: [address] [place], [place] [phone] Follow up 12/24/2013 Visit Plan: Open wound of right leg-debrided today in the office-instructed on wound care-follow up as directed. Call with any questions, concerns, or worsening symptoms. Culture of wound today in the office-RX for abx sent to patient's pharmacy and instructed on use. Patient verbalized understanding of plan. 12/12/2013 Appointment: Rika Bello WPtel: [facility]2 [phone] Other 12/12/2013 Patient Education: Patient Medication Summary Completed 12/12/2013 Appointment: Tessie Motta WPtel: [phone] [place] Follow up 11/20/2013 Visit Plan: negative ua 11/18/2013 Appointment: Tessie Motta WPtel: [phone] [place] Lab Draw 11/18/2013 Patient Education: Patient Medication [...] Completed 11/14/2013 Visit Plan: Open wound right gjr-idkqnf-swxo if opens up Edema - pt has been advised to elevate legs to prevent dependent edema, compression has been recommended to help to naturally decrease peripheral edema. Diuretic use has been discussed and pt has been instructed in appropriate use of such medication as necessary to further attempt to reduce peripheral edema. 10/21/2013 Appointment[phone] [place] Follow up 10/21/2013 Patient Education: Patient Medication Summary Completed 10/21/2013 Appointment: [phone] [place] Follow up 10/17/2013 Appointment: Tessie Motta [facility]Ptel: [phone] [place] Follow up 10/10/2013 Visit Plan: Hypertension - [...] for pain. 10/03/2013 Appointment: Rika Bello WPtel: [facility]5 [phone] Follow up 10/03/2013 Patient Education: Patient Medication [...] of plan. 09/23/2013 Appointment: Tessie Motta WPtel: [facility]5 [facility] [place] Nurse Visit 09/23/2013 Patient Education: [...] 2 WEEKS. 09/20/2013 Appointment: Rika Bello WPtel: [address] [place], [place] [phone] [place] [address] Follow up 09/20/2013 Patient Education: Patient Medication Summary Completed 09/20/2013 Patient Education: Hypertension Completed 09/20/2013 Appointment: Tessie Motta WPtel: [address] [place], [place] [phone] Follow up 09/16/2013 Visit Plan: Edema - [...] verbalized understanding. 09/10/2013 Appointment: Rika Bello WPtel: [facility]5 [place] [phone] [place] Other 09/10/2013 Patient Education: Patient Medication Summary Completed 09/10/2013 Appointment: Rika Bello WPtel: [facility]5 [phone] Follow up 09/02/2013 Visit Plan: Diabetes Mellitus [...] edema. 08/19/2013 Appointment: [phone] [facility] 08/19/2013 Patient Education: Patient Medication Summary Completed [...] as scheduled 08/01/2013 Appointment: Rika Bello WPtel: [facility]2 [address] Follow up 08/01/2013 Patient Education: Patient Medication Summary Completed 08/01/2013 Appointment: Rika Bello WPtel: [address] [place] [address] Follow up 07/25/2013 Appointment: Tessie Motta WPtel: [facility] Follow up 07/25/2013 Visit Plan: Bister of foot-dressing changes discussed with patient and instructed her to keep her foot clean and dry-STOP WEARING FLIP FLOPS as they are causing friction over blistered area. Keep follow up appointment as scheduled. Call for redness, drainage or other s/s of infection. 07/19/2013 Appointment: Rika Bello WPtel: [facility]4 [place] [phone] [place] Other 07/19/2013 Patient Education: Patient Medication [...] peripheral edema. 07/15/2013 Appointment: Rika Bello WPtel: [facility]3 [address] Other 07/15/2013 Patient Education: Patient Medication Summary Completed 07/15/2013 Patient Education: Hypertension Completed 07/15/2013 Appointment: Rika Bello WPtel: [address] [place], [place] [phone] [place] [address] Follow up 07/01/2013 Appointment: Rika Bello WPtel: [facility]5 [phone] [place] [address] Lab Draw 06/28/2013 Patient Education: Patient Medication [...] 900mg tid. 06/27/2013 Appointment: Tessie Motta WPtel: [address] [place] [address] Other 06/27/2013 Patient Education: Patient Medication Summary Completed 06/27/2013 Appointment: Tessie Motta WPtel: [address] [place], [place] [phone] Other 06/24/2013 Visit Plan: Diabetes Mellitus [...] THE AFTERNOON. 06/10/2013 Appointment: Tessie Motta WPtel: [address] [place] [address] Follow up 06/10/2013 Patient Education: Patient Medication Summary Completed 06/10/2013 Appointment: Tessie Motta WPtel: [address] [place] [address] Follow up 06/06/2013 Visit Plan: Sinusitis - [...] acutely worsen. 05/07/2013 Appointment: Tessie Motta WPtel: [facility]4 [place] [phone] Follow up 05/07/2013 Patient Education: Patient Medication Summary Completed 05/07/2013 Appointment: Tessie Motta WPtel: [facility]9 [place] [phone] [place] Follow up 04/30/2013 Visit Plan: Edema - [...] acute changes. 04/16/2013 Appointment: Tessie Motta WPtel: [facility] Follow up 04/16/2013 Patient Education: Patient Medication Summary Completed 04/16/2013 Appointment: Tessie Motta WPtel: [phone] [facility] Follow up 04/04/2013 Visit Plan: Lumbago-continue [...] peripheral edema. 03/21/2013 Appointment: Rika Bello WPtel: [facility]5 [phone] [place] [address] Follow up 03/21/2013 Patient Education: Patient Medication Summary Completed 03/21/2013 Appointment: Tessie Motta WPtel: [facility]0 [facility] Follow up 03/20/2013 Appointment: Tessie Motta WPtel: [address] [place], [place] [phone] Follow up 03/05/2013 Visit Plan: Edema-significantly improved- [...] less controlled. 02/12/2013 Appointment: Rika Bello WPtel: [facility]5 [phone] [place] [address] follow up 02/12/2013 Patient Education: Patient Medication [...] Dyspnea - recommended pt to see new software educator when [facility] gets [facility] for further evaluation and work-up. 02/04/2013 Appointment: Tessie Motta WPtel: [facility]1 [facility] Follow up 02/04/2013 Patient Education: Patient Medication [...] not improve. 01/17/2013 Appointment: Rika Bello WPtel: [facility]5 [phone] Follow up 01/17/2013 Patient Education: Patient Medication Summary Completed 01/17/2013 Patient Education: Hypertension Completed 01/17/2013 Appointment: Tessie Motta WPtel: [address] [place], [place] [phone] Follow up 01/16/2013 Appointment: Tessie Motta WPtel: [address] [place], [place] [phone] [place] Follow up 01/10/2013 Appointment: Rika Bello WPtel: [facility]5 [phone] [place] Lab Draw 01/01/2013 Patient Education: Patient [...] Hypothyroidism-check labs 12/31/2012 Appointment: Rika Bello WPtel: [facility]4 [phone] [place] Follow up 12/31/2012 Appointment: Rika Bello WPtel: [facility]5 [phone] Sick 12/31/2012 Patient Education: Patient Medication Summary [...] labs. 12/20/2012 Appointment: Rika Bello WPtel: [phone] [phone] Sick 12/20/2012 Patient Education: Patient Medication Summary Completed 12/20/2012 Patient Education: Hypertension Completed 12/20/2012 Appointment: Tessie Motta WPtel: [phone] Lab Draw 11/05/2012 Patient Education: Patient Medication Summary Completed 11/05/2012 Visit Plan: Bronchitis - acute case of bronchitis identified. Pt has been given antibiotics, breathing treatments as appropriate, and pt has been instructed to call if symptoms are not improved, or if symptoms acutely worsen. 10/29/2012 Appointment: Tessie Motta WPtel: [phone] [facility] [facility] 10/29/2012 Patient Education: Patient Medication Summary Completed 10/29/2012 Visit Plan: Joint Injection-left SI joint - Pt was given post - injection instructions. The pt has been advised to use antiinflammatories post injection today, ice to the injected site, call if redness, warmth, or increased pain occurs at the site of injection. 09/21/2012 Appointment: Rika Bello WPtel: [phone] [phone] Follow up 09/21/2012 Patient Education: Patient Medication [...] control. 09/06/2012 Appointment: Tessie Motta WPtel: [phone] [facility] Follow up 09/06/2012 Patient Education: Patient [...] readings are starting to become less controlled. Tonzokmi-earymbtj-bddrnjlf probiotic-continue to hold metformin and repeat labs before appt in 2 weeks. Call for abd pain, worsening diarrhea, or other concerns. 08/23/2012 Appointment: Tessie Motta WPtel: [phone] Follow up 08/23/2012 Patient Education: Patient Medication [...] OF PLAN. 08/13/2012 Appointment: [facility]el[phone] Follow up 08/13/2012 Patient Education: Patient [...] concerns. 08/07/2012 Appointment: Rika Bello WPtel: [phone] [phone] Other 08/07/2012 Patient Education: Patient Medication Summary Completed 08/07/2012 Patient Education: Hypertension Completed 08/07/2012 Visit Plan: UA-sent for culture 07/19/2012 Appointment: Rika Bello WPtel: [phone] [phone] Lab Draw 07/19/2012 Patient Education: Patient Medication [...] directed 07/06/2012 Appointment: R[facility]Ptel[phone] [facility] 07/06/2012 Patient Education: Patient Medication Summary [...] Motta WPtel: [phone] Follow up 06/07/2012 Appointment: Tessie Motta WPtel: [phone] Follow up 06/07/2012 Patient Education: Patient Medication [...] days. 05/28/2012 Appointment: [facility]Ptel[phone] Follow up 05/28/2012 Patient Education: Patient [...] edema. 05/17/2012 Appointment: Rika Bello WPtel: [phone] [phone] [place] [address] Follow UP 05/17/2012 Patient Education: Patient Medication [...] the office 05/02/2012 Appointment: Tessie Motta WPtel: [address] [place], [place] [phone] Follow up 05/02/2012 Patient Education: Patient Medication Summary Completed 05/02/2012 Patient Education: Hypertension Completed 05/02/2012 Appointment: Tessie Motta WPtel: [facility]5 [facility] Follow up 04/25/2012 Visit Plan: Sinusitis [...] acute concerns. 04/10/2012 Appointment: Rika Bello WPtel: [address] [place], [place] [phone] Follow up 04/10/2012 Patient Education: Patient Medication [...] I&D on Monday02/27/2012 Appointment: Rika Bello WPtel: [phone] Follow up 02/27/2012 Patient Education: Patient [...] thighs. 02/15/2012 Appointment: R[facility]Ptel[phone] Follow up 02/15/2012 Patient Education: Patient [...] toes to thighs. RX sent to patient's [facility]. Chest xray at the hospital as [...] of urine. 02/01/2012 Appointment: Rika Bello WPtel: [facility]5 [phone] Other 02/01/2012 Patient Education: Patient Medication Summary [...] left buttocks 12/14/2011 Appointment: Tessie Motta WPtel: [facility]5 [facility] Other 12/14/2011 Patient Education: Patient Medication Summary Completed 12/14/2011 Appointment: Tessie Motta WPtel: [address] [place], [place] [phone] Follow up 12/08/2011 Visit Plan: N/V/D - [...] starting to become less controlled. 11/30/2011 Appointment: Bello Rika WPtel: [phone] Other 11/30/2011 Patient Education: Patient Medication Summary [...] pain. 11/17/2011 Appointment: Tessie Motta WPtel: [phone] Other 11/17/2011 Patient Education: Patient Medication Summary [...] - uncontrolled - will consult her primary forest management professor for assistance with control her her heart rate. Ulcer of toe - continue with topical antibiotics as previously directed, return to clinic as previously directed, call for acute change in symptoms, worsening redness, warmth, discharge. 11/03/2011 Appointment: Tessie Motta WPtel: [phone] [facility] Other 11/03/2011 Patient Education: Patient Medication [...] discharge. 10/24/2011 Appointment: Tessie Motta WPtel: [phone] [place] Other 10/24/2011 Patient Education: Patient Medication [...] with lymphoma. 09/26/2011 Appointment: Rika Bello WPtel: [phone] [place] [phone] [place] [address] Other 09/26/2011 Patient Education: Patient Medication Summary [...] Hypertension Completed 2011 Appointment: Tessie Motta WPtel: [facility]2 [place] [phone] Other 09/05/2011 Visit Plan: Sinusitis - Pt [...] the medication. 09/01/2011 Appointment: Tessie Motta WPtel: [facility]1 [facility] Other 09/01/2011 Patient Education: Patient Medication Summary Completed 09/01/2011 Visit Plan: Sinusitis - continue with ciprofloxacin and start on corcidin HBP. Anxiety - start the xanax 0.5mg 1/2 pill twice daily. 08/15/2011 Appointment: Tessie Motta WPtel: [facility]3 [facility]66[facility] Other 08/15/2011 Appointment: Tessie Motta WPtel: [facility]7 [facility] Other 08/15/2011 Patient Education: Patient Medication Summary [...] the hospital. 08/09/2011 Appointment: Rika Bello WPtel: [facility]0 [phone] [place] Other 08/09/2011 Patient Education: Patient Medication [...] not resolve 08/01/2011 Appointment: Rika Bello WPtel: [address] [place] [address] Other 08/01/2011 Patient Education: Patient Medication Summary Completed 08/01/2011 Appointment: Rika Bello WPtel: [address] [place] [address] [place] Other 07/26/2011 Appointment: Tessie Motta WPtel: [address] [place] [address] Other 07/18/2011 Visit Plan: Diabetes Mellitus - [...] management sparingly. 06/20/2011 Appointment: Tessie Motta WPtel: [facility]8 [address] Other 06/20/2011 Patient Education: Patient Medication Summary [...] 1 month. 04/18/2011 Appointment: Tessie Motta WPtel: [address] [place] [address] Other 04/18/2011 Patient Education: Patient Medication Summary Completed 04/18/2011 Patient Education: High Blood Pressure: Essential Hypertension Completed 2010 Appointment: Tessie Motta WPtel: [address] [place] [address] Other 04/12/2011 Appointment: Tessie Motta WPtel: [address] [place] [address] Other 02/16/2011 Referral: Matt Pavon HPtel:[phone] [place] [address] [place] Referral Initiated Referral: Yareli Raines Referral [...] Trigger point injection to left buttocks . Sls-hqyvdpdxky-zc changes Anemia-check cbc today Dental infection-on clindamycin per Dr Bryant-start probiotics Also needs to monitor blood sugars closely Pt has been instructed to stop eating [...] leg-start oral abx and bactroban as directed Fopro-nuduklnecyup-xyk markie wraps, elevate leg, and again instructed patient to cut back on pop and salty foods. . Diabetes Mellitus - controlled - per [...] annabel to her chronic back pain. . Bronchitis - will check labs, if [...] Call if symptoms do not show improvement. check UA . Dysuria-urinary incontinence-culture urine HTN-elevated today-monitor at home -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 INCREASE LEVEMIR TO 25 UNITS TWICE DAILY-IF [...] pain control and symptom management sparingly. . Hypertension - well controlled - continue with current medications, continue with no added salt diet. Pt has been encouraged to exercise daily. The pt has been advised to call the office if there are any acute concerns about change in blood pressure readings at home. PG-hjcsaolaaesv-egvvyuaga strict diet and exercise with patient Low mdyukwxxl-rblmcbmd-clveyjee to monitor Abd wvgn-ztrbfyko-wb changes . Diabetes Mellitus - controlled - [...] from 600mg tid to 900mg tid. . UA-sent for culture . Ayleenter of foot-dressing changes discussed with patient and [...] nebulizer and supplies due to mold . Sinusitis - Pt has acute infection [...] to further attempt to reduce peripheral edema. Labs and UA . Hypertension - well [...] change in symptoms, worsening redness, warmth, discharge. Ffmjgbss-dlvqpugzibsh-smcaf labs today-patient has been given orders multiple [...] with results.Patient and verbalized understanding of plan. TVS-yowdllfmsmc-jdylb labs-monitor blood pressure and heart rate closely- recommend ER if symptoms do not improve. . Diabetes Mellitus - controlled - per [...] Call if symptoms do not show improvement. Holter monitor x 48 hours. You will go [facility] the heart [facility] on August 14 at 1:30pm to have it put on. You appt here Monday is at 3:30pm. 1 liter Normal saline IV today at the hospital. Continue your blood pressure medications for the next week-except HOLD LISINOPRIL/HCTZ I sent a prescription for cipro and flagyl to [facility]. Start it today. . Sinusitis - [...] for demerol injection today at the hospital. RICE - Rest Ice Compression (knee brace) [...] attempt to reduce peripheral edema. Dysuria-check UA FOR CHOLESTEROL - THE NEW DOSE OF [...] to further attempt to reduce peripheral edema. Compression hose-RX provided Labs today Lasix and [...] of right great toe-refer to wound care . Hypertension - well controlled - continue [...] readings are starting to become less controlled. Pukzmasp-zbktzdlr-suiknxoh probiotic-continue to hold metformin and repeat labs before appt in 2 weeks. Call for abd pain, worsening diarrhea, or other concerns. INCREASE LEVEMIR TO 20 UNITS IN THE [...] to allow for greater blood glucose control. XDW-dyikxgvbzf-si changes in medications at this time. Dysuria-UA negative-needs pelvic exam due to pt c/o vaginal discharge . Open wound of leg-debrided and cleaned [...] - uncontrolled - will consult her primary forest management professor for assistance with control her her heart rate. Ulcer of toe - continue with topical antibiotics as previously directed, return to clinic as previously directed, call for acute change in symptoms, worsening redness, warmth, discharge. . Patient presented with acute symptoms of stroke. Accompanied to ER for emergent evaluation. CHECK LABS INCLUDING UA . Shingles-rash scabbed-no further treatment indicated-patient to call if pain uncontrolled N/V-check labs including UA DM-check labs today Thrush-RX for nystatin . Open wound of hxg-bszfhrzs-zhumazea with dressing changes as directed-call for increase [...] to reduce peripheral edema. . Open wound right zry-rcdbus-zwkt if opens up Edema - pt has been advised to elevate legs to prevent dependent edema, compression has been recommended to help to naturally decrease peripheral edema. Diuretic use has been discussed and pt has been instructed in appropriate use of such medication as necessary to further attempt to reduce peripheral edema. . Ijzfkhl-uhjayeugp-fcac head injury on 12/05-did not go to ER-patient sent for STAT CT scan of head-schedule appt with Dr Dyer Adrenal insufficiency-patient suddenly stopped prednisone-instructed patient to restart and taper prednisone as directed Rib wlmj-pesjl-djbiho fall-xray ribs START CHECKING BLOOD SUGARS!!!! BRING [...] RTC in one month for weight check. . Diabetes Mellitus - controlled - per [...] to further attempt to reduce peripheral edema. Jjucohenue-eytsuijz-jf change in treatment-continue compression hose-decrease salt/sodium in diet-call if symptoms worsen or do not resolve Tmyekbwst-fupicyi-lvkqjczo nasonex to twice daily as directed . Cellulitis - continue with oral antibiotics [...] further attempt to reduce peripheral edema. pt to start on LEVEMIR 5 units [...] to clinic if symptoms do not resolve Labs today- CBC, CMP, HgbA1C Dr. Shelley [...] medications as her recently diagnosed with lymphoma. 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 Check labs-cbc, cmp, hgb a1c. We will [...] to reduce peripheral edema. Check labs. . Patient presented with acute symptoms of stroke. Accompanied to ER for emergent evaluation. . ER follow up - Dr. Motta in to see pt - pt was given a script for a terminal carman prednisone taper - pt has not started [...] week - will closely monitor pt. . Diabetes Mellitus - controlled - per [...] for diflucan-call if symptoms do not resolve [place] balm over the counter for the knee. [...] infection Urinary urgency-check UA Hypothyroidism-check labs . Sinusitis - Pt has acute infection [...] times Pain uncontrolled-change to percocet as directed. CHECK CMP TODAY . Edema - pt [...] next appointment for review. Patient verbalized understanding. INCREASE LANTUS TO 20 UNITS IN THE [...] Q HS RESCHEDULE APPT WITH DR YANNA HoCplakopxs-bpsywmfrq-sp for bactroban ointment provided and instructed on use UNZ-snjoagnwsx-yh change in medications Mildly elevated liver enzymes-discussed with Dr motta-suspect due to gabapentin-will monitor levels Gait instability-again recommend patient use walker as well as PT . Hypertension - well controlled - continue [...] in 1 week, sooner if symptoms worsen YOU NEED TO BE DOING YOUR DUONEB [...] further attempt to reduce peripheral edema. . UA negative -no culture indicated . [...] expect her headaches to improve with treatment STOP THE PROBIOTICS START GAS X DULCOLAX [...] pt is to call for acute concerns. INCREASE LEVEMIR TO 25 UNITS IN THE [...] Mejia to perform I&D on Monday . Sinusitis - continue with ciprofloxacin and [...] are starting to become less controlled. . Open wound of right leg-debrided today in the office- instructed on wound care-follow up as directed. Call with any questions, concerns, or worsening symptoms. Patient verbalized understanding of plan. . negative ua . Hypertension - well controlled - continue with current medications, continue with no added salt diet. Pt has been encouraged to exercise daily. The pt has been advised to call the office if there are any acute concerns about change in blood pressure readings at home. Yeast infection -improved-continue nystatin powder Hypothyroidism-check labs Anemia-check CBC Lactobacillus 1 po twice daily. Check labs [...] persists DM-bring log to next appt . Diabetes Mellitus - Uncontrolled - I [...] control. Yeast infection -rx for nystatin powder ZGNL-ycbvehggz-mnatsf cqfburkmx-awls-gzcteeo is oxygen dependent due to severely compromised [...] control. Yeast infection -rx for nystatin powder ICCC-zdmatrxak-zecmkx nfqpgroqo-gfon-vcxmswq is oxygen dependent due to severely compromised pulmonary and cardiac systems-will send orders to [facility] to continue oxygen . DM-patient noncompliant with diet-recommend she start checking her blood sugars more frequently-discussed diet -recommend eating every 3-4 hours with protein at each meal. Patient and verbalized understanding Chronic Pain Syndrome - pt has chronic pain - has been maintained on current medications, has not sought out other medications, only uses PRN pain medications as directed, and understands the consequences of over-medication. . Blister of right leg-drained today in [...] instability, COPD and increased risk of falls Monitor you blood sugars as directed at [...] to further attempt to reduce peripheral edema. INCREASE TOPROL TO 100MG TWICE DAILY Cipro [...] office- follow up in 10 days. . Edema - pt has been advised to elevate legs to prevent dependent edema, compression has been recommended to help to naturally decrease peripheral edema. Diuretic use has been discussed and pt has been instructed in appropriate use of such medication as necessary to further attempt to reduce peripheral edema. Dyspnea - recommended pt to see new software educator when he gets to [facility] for further evaluation and work-up. . UA negative . Right knee pain-patient to schedule appt with Dr Cooper Rash-right arm-concerned for shingles-RX for acyclovir provided and instructed on use-call if symptoms do not resolve or if any worse. pt is to take lasix 40mg in [...] as needed for pain. INCREASE LEVEMIR TO 15 UNITS IN THE [...] allow for greater blood glucose control. . Bronchitis - acute case of bronchitis [...] a prescription for lasix and potassium to [facility]. Take 2 TABLETS of LASIX [...] toes to thighs. RX sent to patient's [facility]. Chest xray at the hospital as [...] control. Yeast infection -rx for nystatin powder GCXT-paykgevjb-bukycw ikcxzbzpo-lvjh-cveympu is oxygen dependent due to severely compromised [...] Right knee pain-recent fall-xray right knee . Generalized abdominal pain-discussed with Dr Motta-CT negative in ER last night-patient is non compliant with diet/medications/ recommendation-will send RX for levsin to use as needed-will replace electrolytes-discussed diet/fluid intake-instructed patient to go to ER over the weekend if symptoms do not improve or if worsen. Patient and verbalized understanding of plan. Low potassium and magnesium-rx sent to patient's pharmacy-repeat labs on Monday Take lasix daily x 5 days Take [...] spray. Kenalog injection today in the office refer to Dr Raines increase levemir to [...] do not improve or if they worsen. RETURN MONDAY FOR REMOVAL OF IPRO . [...] and return Monday for removal of IPRO Zuuwxnp-uryldmmwtn-la changes in medications-recommend counseling-patient refuses Weakness-patient is [...] patient's pharmacy and instructed on use . Open wound of right leg-debrided today in the office- instructed on wound care-follow up as directed. Call with any questions, concerns, or worsening symptoms. Culture of wound today in the office-RX for abx sent to patient's pharmacy and instructed on use. Patient verbalized understanding of plan. DR Yareli Raines-you need to reschedule your appt with her -she is a family specialist . Diabetes Mellitus - ucontrolled- I [...] to become less controlled. Low potassium-check labs XBT-gxwhkxbeyw-xp changes Afib-check digoxin level with labs Abdominal pain-refill levsin for prn use -call if pain uncontrolled DR Yareli Raines-you need to reschedule your appt with her -she is a family specialist . Diabetes Mellitus - ucontrolled- I [...] to become less controlled. Low potassium-check labs WQO-oohzzdofyu-id changes Afib-check digoxin level with labs Abdominal pain-refill levsin for prn use -call if pain uncontrolled . Cellulitis - continue with oral antibiotics [...] worsening of stomach upset or stomach pain. DX sinusitis - discussed expected course with [...] take one pill daily. x 1 month. TAKE AN EXTRA 30MG CYMBALTA TO=90MG DAILY CHECK LABS RECOMMEND COUNSELING CALL ABOUT GOING BACK TO PULMONARY REHAB GET APPT WITH PAIN MANAGEMENT FOR INJECTIONS STOP BY [facility] [employer] FOR NEW CPAP SUPPLIES . Hypertension - [...] every night DM-check Hgb A1C Hypothyroidism-check level Xghfybf-zjshwttbwp-ckk well controlled-increase cymbalta-recommend counseling . Diabetes Mellitus [...] she needs to...RESCHEDULE APPT WITH DR RAINES TGZ-rlkoqilhea-vr change in medications . Hypertension - well controlled - continue [...] to further attempt to reduce peripheral edema. the dose on 01/01/15 PM - take [...] FSBS at home, decrease eating out. . Celllulitis of foot-suspect foreign body-plan to [...]
--- OUTSIDE RECORDS SUMMARY | 2018-06-04 17:28 | XMS REPORT | CCD ---
Author Author [facility]ie [facility] Organization [facility] Address [address] [place] [address] Phone Care Team Providers Care Director Of Optimization Name Role Phone Tessie Motta PP Unavailable CCM Unavailable Summary Purpose Interface Exchange Insurance Providers Payer name Policy type / Coverage type Covered green party ID Effective Begin Date Effective End Date WPS Medicare Part B Medicare Part B [id number] 2015 Unknown [facility] Medicare Part B [id number] Unknown Family history Son Diagnosis Age At [...] College Graduate 08/21/[address]: 732660249 Never smoker 02/11/[address]: 372313238 Never drinks alcohol 02/11/2011 Has the patient ever used illegal drugs? Unknown Has never used illegal drugs 02/11/2011 Allergies, Adverse Reactions, Alerts Substance Reaction Codes Entered Date Inactivated Date Status CODEINE RxNorm: 2670 02/11/2011 No Inactive Date Active * NO KNOWN FOOD ALLERGIES Unknown 02/01/2012 No Inactive Date Active cefdinir RxNorm: 17161 08/07/2012 No Inactive Date Active PENICILLINS Unknown [...] Start Date Stop Date Status Fill Instructions Vitamin D2 50,000 unit capsule RxNorm: 4967754 1 Capsule(s) PO QW 04/17/2018 06/15/2018 Active Tessalon Perles 100 mg capsule RxNorm: 721537 Capsule(s) Capsule(s) 2 Capsule(s) PO TID as needed 04/17/2018 No Stop Date Active Xanax 0.5 mg tablet RxNorm: 286266 1 Tablet(s) BID as needed 04/09/2018 05/08/2018 Active Percocet 10 mg-325 mg tablet RxNorm: 5796053 1-2 Tablet(s) PO Q6 PRN 04/05/2018 04/19/2018 Active colestipol 1 gram tablet RxNorm: 2099910 TAKE ONE TABLET BY MOUTH TWICE DAILY 03/30/2018 No Stop Date Active nystatin 100,000 unit/mL oral suspension RxNorm: 420224 Unit(s) 5 Milliliter(s) PO QID swish and swallow 03/21/20182017 Inactive Tessalon Perles 100 mg capsule RxNorm: 832205 Capsule(s) Capsule(s) 2 Capsule(s) PO TID as needed 03/21/2018 04/16/2018 Inactive Xanax 0.5 mg tablet RxNorm: 421437 Tablet(s) BID as needed 04/09/2018 Inactive Slow Fe 47.5 mg iron tablet,extended release RxNorm: 1 Tablet(s) PO every other day 03/12/2018 04/10/2018 Inactive Percocet 10 mg-325 mg tablet RxNorm: 5034508 1-2 Tablet(s) PO Q6 PRN 03/12/2018 03/26/2018 Inactive Slow Fe 47.5 mg iron tablet,extended release RxNorm: 1 Tablet(s) PO 3 x week 02/28/2018 03/11/2018 Inactive promethazine 25 mg tablet RxNorm: 565224 Tablet(s) 1 Tablet(s) PO Q6 PRN TAKE NEEDED ONLY!!! 02/21/2018 No Stop Date Active gabapentin 600 mg tablet RxNorm: 528532 Tablet(s) TAKE ONE & ONE-HALF TABLETS BY MOUTH THREE TIMES DAILY 02/20/20182018 Active Cymbalta 60 mg capsule,delayed release RxNorm: 794079 1 Capsule(s) PO daily take with 30mg tablet 02/20/2018 08/18/2018 Active Cymbalta 30 mg capsule,delayed release RxNorm: 025832 Capsule(s) TAKE ONE CAPSULE BY MOUTH ONCE DAILY - TAKE WITH THE 60 MG DOSE FOR A TOTAL OF 90 MG 02/20/2018 08/18/2018 Active Vitamin D2 50,000 unit capsule RxNorm: 5642480 1 Capsule(s) PO QW 02/20/2018 02/19/2018 Inactive Vitamin D2 50,000 unit capsule RxNorm: 8681703 1 Capsule(s) PO QW 02/20/2018 04/16/2018 Inactive mupirocin 2 % topical ointment RxNorm: 230861 APPLY TO SORE IN BELLY BUTTON TWICE DAILY 02/15/2018 No Stop Date Active Percocet 10 mg-325 mg tablet RxNorm: 4902515 1-2 Tablet(s) PO Q6 PRN 02/14/2018 02/28/2018 Inactive Jerry Marley U-300 Insulin 300 unit/mL (1.5 mL) subcutaneous pen RxNorm: 2935656 40 Unit(s) SQ BID per dr raines 02/07/2018 03/08/2018 Inactive nystatin 100,000 unit/mL oral suspension RxNorm: 730657 5 Milliliter(s) PO QID swish and swallow 02/02/2018 02/11/2018 Inactive mupirocin 2 % topical ointment RxNorm: 911262 1 Application TOP BID 01/30/2018 02/08/2018 Inactive Tessalon Perles 100 mg capsule RxNorm: 673685 Capsule(s) 2 Capsule(s) PO TID as needed 01/23/2018 03/20/2018 Inactive Xanax 0.5 mg tablet RxNorm: 861870 Tablet(s) TAKE ONE TABLET BY MOUTH THREE TIMES DAILY NEEDED 01/17/20182017 Inactive ropinirole 1 mg tablet RxNorm: 034328 1 Tablet(s) PO BID 201705/10/2018 Active digoxin 125 mcg tablet RxNorm: 622996 1 Tablet(s) PO daily 05/09/2018 Active Percocet 10 mg-325 mg tablet RxNorm: 9435346 1-2 Tablet(s) PO Q6 PRN 01/04/2018 01/18/2018 Inactive Percocet 10 mg-325 mg tablet RxNorm: 3125757 1-2 Tablet(s) PO Q6 PRN 01/02/2018 01/03/2018 Inactive promethazine 25 mg tablet RxNorm: 174369 Tablet(s) 1 Tablet(s) PO Q6 PRN TAKE NEEDED ONLY!!! 01/02/2018 02/20/2018 Inactive pantoprazole 40 mg tablet,delayed release RxNorm: 248510 TAKE 1 TABLET BY MOUTH ONCE DAILY 12/25/2017 No Stop Date Active mupirocin 2 % topical ointment RxNorm: 990809 1 Application TOP BID 12/22/2017 12/31/2017 Inactive fluconazole 150 mg tablet RxNorm: 606039 1 Tablet(s) PO every other day x 3 doses 12/14/2017 12/23/2017 Inactive Percocet 10 mg-325 mg tablet RxNorm: 5125263 1-2 Tablet(s) PO Q6 PRN 12/13/2017 12/27/2017 Inactive hyoscyamine 0.125 mg sublingual tablet RxNorm: 0512200 Tablet(s) 1 Tablet(s) SL TID as needed 12/13/2017 04/11/2018 Inactive nystatin 100,000 unit/gram topical powder RxNorm: 129957 APPLY POWDER TOPICALLY 4 TIMES DAILY 12/11/2017 No Stop Date Active Xanax 0.5 mg tablet RxNorm: 954170 Tablet(s) TAKE ONE TABLET BY MOUTH THREE TIMES DAILY NEEDED 12/06/20172017 Inactive nitrofurantoin 50 mg capsule RxNorm: 360235 1 Capsule(s) PO BID 12/01/2017 11/30/2017 Inactive take probiotic BID x 7 days nitrofurantoin 50 mg capsule RxNorm: 430977 1 Capsule(s) PO BID 12/01/2017 12/07/2017 Inactive take probiotic BID x 7 days mupirocin 2 % topical ointment RxNorm: 483153 1 Application TOP BID 11/27/2017 12/06/2017 Inactive Tessalon Perles 100 mg capsule RxNorm: 085159 Capsule(s) 2 Capsule(s) PO TID as needed 11/21/2017 01/22/2018 Inactive nystatin 100,000 unit/mL oral suspension RxNorm: 889351 5 Milliliter(s) PO QID swish and swallow 11/17/2017 11/26/2017 Inactive nystatin 100,000 unit/mL oral suspension RxNorm: 403395 5 Milliliter(s) PO QID swish and swallow 11/17/2017 11/16/2017 Inactive Toprol XL 100 mg tablet,extended release RxNorm: 600846 TAKE ONE TABLET BY MOUTH TWICE DAILY 11/15/2017 No Stop Date Active ropinirole 1 mg tablet RxNorm: 651997 Tablet(s) BID 11/14/2017 01/10/2018 Inactive Diflucan 150 mg tablet RxNorm: 693675 Tablet(s) every other day 1 Tablet(s) PO every other day 11/14/2017 11/16/2017 Inactive Percocet 10 mg-325 mg tablet RxNorm: 5816523 1-2 Tablet(s) PO Q6 PRN 11/09/2017 11/23/2017 Inactive Flonase Allergy Relief 50 mcg/actuation nasal spray, suspension RxNorm: 2173870 2 Hum[place] NASAL daily 11/06/20172017 Inactive cyclobenzaprine 10 mg tablet RxNorm: 472488 Tablet(s) TABLET(S) 1 TABLET(S) PO NEEDED TAKE 1 TABLET BY MOUTH EVERY 8 HOURS NEEDED 2017 No Stop Date Active Cymbalta 30 mg capsule,delayed release RxNorm: 730976 TAKE ONE CAPSULE BY MOUTH ONCE DAILY - TAKE WITH THE 60 MG DOSE FOR A TOTAL OF 90 MG 02/19/2018 Inactive Lantus Solostar U-100 Insulin 100 unit/mL (3 mL) subcutaneous pen RxNorm: 479859 Unit(s) SQ 35 units QAM and 55 units QHS Unit(s) SQ 10/27/2017 02/07/2018 Inactive Wants insulin pens Percocet 10 mg-325 mg tablet RxNorm: 2408847 1-2 Tablet(s) PO Q6 PRN 10/27/2017 11/08/2017 Inactive promethazine 25 mg tablet RxNorm: 390217 Tablet(s) 1 Tablet(s) PO Q6 PRN TAKE NEEDED ONLY!!! 10/27/2017 01/01/2018 Inactive Xanax 0.5 mg tablet RxNorm: 283547 Tablet(s) TAKE ONE TABLET BY MOUTH THREE TIMES DAILY 10/20/2017 04/08/2018 Inactive Tessalon Perles 100 mg capsule RxNorm: 589044 Capsule(s) 2 Capsule(s) PO TID as needed 10/19/2017 11/20/2017 Inactive Diflucan 150 mg tablet RxNorm: 933509 1 Tablet(s) PO every other day 10/15/2017 11/13/2017 Inactive Percocet 10 mg-325 mg tablet RxNorm: 0428231 1-2 Tablet(s) PO Q6 PRN 10/06/2017 10/20/2017 Inactive pantoprazole 40 mg tablet,delayed release RxNorm: 824842 1 Tablet(s) PO BID 10/03/2017 03/31/2018 Inactive Cymbalta 60 mg capsule,delayed release RxNorm: 014603 TAKE ONE CAPSULE BY MOUTH ONCE DAILY 09/21/2017 02/19/2018 Inactive Diflucan 150 mg tablet RxNorm: 823452 1 Tablet(s) PO every other day 09/15/2017 09/19/2017 Inactive hyoscyamine 0.125 mg sublingual tablet RxNorm: 7511858 1 Tablet(s) SL TID as needed 09/08/2017 12/12/2017 Inactive Lantus Solostar U-100 Insulin 100 unit/mL (3 mL) subcutaneous pen RxNorm: 198078 Unit(s) SQ 35 units QAM and 55 units QHS Unit(s) SQ 09/06/2017 09/20/2017 Inactive Wants insulin pens Lasix 40 mg tablet RxNorm: 414072 TAKE ONE TABLET BY MOUTH TWICE DAILY 08/25/2017 No Stop Date Active ropinirole 1 mg tablet RxNorm: 770594 TAKE ONE TABLET BY MOUTH AT BEDTIME 08/25/2017 11/13/2017 Inactive Lantus U-100 Insulin 100 unit/mL subcutaneous solution RxNorm: 134128 35 units QAM and 55 units QHS Unit(s) SQ 08/21/2017 09/05/2017 Inactive Tessalon Perles 100 mg capsule RxNorm: 651215 Capsule(s) 2 Capsule(s) PO TID as needed 08/18/2017 10/18/2017 Inactive Percocet 10 mg-325 mg tablet RxNorm: 5621142 1-2 Tablet(s) PO Q6 PRN 08/16/2017 08/30/2017 Inactive pantoprazole 40 mg tablet,delayed release RxNorm: 655851 TAKE ONE TABLET BY MOUTH TWICE DAILY 08/14/2017 08/13/2017 Inactive pantoprazole 40 mg tablet,delayed release RxNorm: 665784 1 Tablet(s) PO daily 08/14/2017 10/02/2017 Inactive promethazine 25 mg tablet RxNorm: 022299 Tablet(s) 1 Tablet(s) PO Q6 PRN TAKE NEEDED ONLY!!! 08/11/2017 10/26/2017 Inactive omeprazole 20 mg capsule,delayed release RxNorm: 017471 1 Capsule(s) PO daily TAKE 1 CAPSULE BY MOUTH ONCE DAILY 08/07/2017 10/26/2017 Inactive nystatin 100,000 unit/mL oral suspension RxNorm: 038187 5 Milliliter(s) PO QID swish and swallow 08/07/2017 08/16/2017 Inactive mupirocin 2 % topical ointment RxNorm: 508804 APPLY TO SORE IN BELLY BUTTON TWICE DAILY 08/07/2017 02/14/2018 Inactive omeprazole 20 mg capsule,delayed release RxNorm: 883038 1 Capsule(s) PO BID TAKE 1 CAPSULE BY MOUTH TWICE DAILY 08/03/2017 08/06/2017 Inactive Diflucan 150 mg tablet RxNorm: 639398 1 Tablet(s) PO daily 08/05/2017 Inactive hyoscyamine 0.125 mg sublingual tablet RxNorm: 1409637 1 Tablet(s) SL TID as needed 08/03/2017 09/01/2017 Inactive gentamicin 0.3 % eye drops RxNorm: 960316 2 Drop(s) ophthalmic (eye) TID 08/03/2017 08/09/2017 Inactive Levaquin 500 mg tablet RxNorm: 808068 1 Tablet(s) PO every other day x3 doses 07/27/2017 08/02/2017 Inactive gentamicin 0.3 % eye drops RxNorm: 705172 2 Drop(s) ophthalmic (eye) TID 07/27/2017 08/02/2017 Inactive dicyclomine 10 mg capsule RxNorm: 365741 1 Capsule(s) PO TID 08/02/2017 Inactive Levaquin 500 mg tablet RxNorm: 857239 1 Tablet(s) PO daily 12/201707/26/2017 Inactive Lantus U-100 Insulin 100 unit/mL subcutaneous solution RxNorm: 913285 INJECT 35 UNITS SUBCUTANEOUSLY IN THE MORNING AND 55 UNITS AT BEDTIME 07/24/2017 09/05/2017 Inactive Tessalon Perles 100 mg capsule RxNorm: 331843 2 Capsule(s) PO TID as needed 07/24/2017 08/17/2017 Inactive Percocet 10 mg-325 mg tablet RxNorm: 7502917 1-2 Tablet(s) PO Q6 PRN 07/21/2017 08/04/2017 Inactive promethazine 25 mg tablet RxNorm: 664471 1 Tablet(s) PO Q6 PRN 1 Tablet(s) PO Q6 PRN 07/19/2017 07/26/2017 Inactive Cartia XT 240 mg capsule,extended release RxNorm: 850784 1 Capsule(s) PO daily 06/27/2017 06/21/2018 Active potassium chloride ER 20 mEq tablet,extended release RxNorm: 977693 Tablet(s) TAKE ONE TABLET BY MOUTH ONCE DAILY 06/21/2017 No Stop Date Active Lantus U-100 Insulin 100 unit/mL subcutaneous solution RxNorm: 062360 35 units QAM and 55 units QHS Unit(s) SQ 06/21/2017 07/20/2017 Inactive Please provide 30 day supply Percocet 10 mg-325 mg tablet RxNorm: 1375990 1-2 Tablet(s) PO Q6 PRN 06/21/2017 07/05/2017 Inactive Cartia XT 180 mg capsule,extended release RxNorm: 947238 Capsule(s) BID 06/21/2017 06/26/2017 Inactive Xanax 0.5 mg tablet RxNorm: 818251 Tablet(s) TAKE ONE TABLET BY MOUTH THREE TIMES DAILY 06/21/2017 08/19/2017 Inactive digoxin 125 mcg tablet RxNorm: 029356 1 Tablet(s) PO daily 10/18/2017 Inactive gabapentin 600 mg tablet RxNorm: 347224 Tablet(s) TAKE ONE & ONE-HALF TABLETS BY MOUTH THREE TIMES DAILY 06/21/20172017 Inactive dicyclomine 10 mg capsule RxNorm: 296347 1 Capsule(s) PO TID 07/26/2017 Inactive Lantus U-100 Insulin 100 unit/mL subcutaneous solution RxNorm: 982960 35 units QAM and 55 units QHS Unit(s) SQ 06/13/2017 06/20/2017 Inactive Please provide 30 day supply potassium chloride ER 20 mEq tablet,extended release RxNorm: 905834 TAKE ONE TABLET BY MOUTH ONCE DAILY 06/02/2017 Inactive cyclobenzaprine 10 mg tablet RxNorm: 148483 Tablet(s) TABLET(S) 1 TABLET(S) PO NEEDED TAKE 1 TABLET BY MOUTH EVERY 8 HOURS NEEDED 201711/02/2017 Inactive Tessalon Perles 100 mg capsule RxNorm: 722054 2 Capsule(s) PO TID as needed 06/01/2017 07/23/2017 Inactive promethazine 25 mg tablet RxNorm: 032597 1 Tablet(s) PO Q6 PRN 1 Tablet(s) PO Q6 PRN 05/25/2017 06/01/2017 Inactive gabapentin 600 mg tablet RxNorm: 704109 TAKE ONE & ONE-HALF TABLETS BY MOUTH THREE TIMES DAILY 05/23/2017 06/20/2017 Inactive promethazine 25 mg tablet RxNorm: 766593 1 Tablet(s) PO Q6 PRN 1 Tablet(s) PO Q6 PRN 05/19/2017 05/24/2017 Inactive Flagyl 500 mg tablet RxNorm: 407069 1 Tablet(s) PO TID 201605/26/2017 Inactive Levaquin 500 mg tablet RxNorm: 994619 1 Tablet(s) PO daily 05/16/2017 Inactive Tessalon Perles 100 mg capsule RxNorm: 528988 2 Capsule(s) PO TID as needed 05/17/2017 05/31/2017 Inactive Flagyl 500 mg tablet RxNorm: 800757 1 Tablet(s) PO TID 201605/16/2017 Inactive hyoscyamine 0.125 mg sublingual tablet RxNorm: 1625150 1 Tablet(s) SL TID as needed 05/17/2017 06/12/2017 Inactive Levaquin 500 mg tablet RxNorm: 117320 1 Tablet(s) PO daily 05/23/2017 Inactive Cymbalta 60 mg capsule,delayed release RxNorm: 634300 1 Capsule(s) PO daily take with 30mg tablet 05/16/2017 08/13/2017 Inactive Bentyl 10 mg capsule RxNorm: 422873 1 Capsule(s) PO TID as needed 05/12/2017 06/10/2017 Inactive Levsin 0.125 mg tablet RxNorm: 7580873 1 Tablet(s) PO Q4 PRN 1-2 Tablet(s) PO Q4 PRN 05/11/2017 05/11/2017 Inactive nystatin 100,000 unit/gram topical powder RxNorm: 774519 Gram(s) APPLY POWDER TOPICALLY 4 TIMES DAILY 05/11/20172017 Inactive nystatin 100,000 unit/mL oral suspension RxNorm: 156787 4 Milliliter(s) PO QID swish and swallow 05/10/2017 05/19/2017 Inactive and Monistat over the counter colestipol 1 gram tablet RxNorm: 9195571 TAKE ONE TABLET BY MOUTH TWICE DAILY 05/08/2017 03/29/2018 Inactive Lantus 100 unit/mL subcutaneous solution RxNorm: 798220 30 units QAM and 50 units QHS Unit(s) SQ 04/28/2017 05/27/2017 Inactive Please provide 30 day supply Lantus Solostar 100 unit/mL (3 mL) subcutaneous insulin pen RxNorm: 667870 Unit( s) SQ BID 04/28/2017 06/13/2017 Inactive 30 units q am and 50units at night Lantus 100 unit/mL subcutaneous solution RxNorm: 402513 30 units QAM and 50 units QHS Unit(s) SQ 04/28/2017 04/27/2017 Inactive Please provide 30 day supply Levsin 0.125 mg tablet RxNorm: 4443327 1 Tablet(s) PO Q4 PRN 1-2 Tablet(s) PO Q4 PRN 04/25/2017 05/10/2017 Inactive promethazine 25 mg tablet RxNorm: 819470 1 Tablet(s) PO Q6 PRN 1 Tablet(s) PO Q6 PRN 04/25/2017 05/02/2017 Inactive Toprol XL 100 mg tablet,extended release RxNorm: 969453 TAKE ONE TABLET BY MOUTH TWICE DAILY 04/24/2017 11/14/2017 Inactive Flagyl 500 mg tablet RxNorm: 125928 1 Tablet(s) PO TID 201604/30/2017 Inactive Levaquin 500 mg tablet RxNorm: 782754 1 Tablet(s) PO daily 05/201604/27/2017 Inactive Voltaren 1 % topical gel RxNorm: 522612 4 Gram(s) TOP QID 04/1810/14/2017 Inactive mupirocin 2 % topical ointment RxNorm: 773310 1 Application TOP BID 04/18/2017 04/27/2017 Inactive apply to sore in belly button Lantus Solostar 100 unit/mL (3 mL) subcutaneous insulin pen RxNorm: 660357 Unit( s) SQ BID 04/18/2017 04/27/2017 Inactive 20 units q am and 50units at night levothyroxine 88 mcg tablet RxNorm: 176473 1 Tablet(s) PO daily TAKE ONE TABLET BY MOUTH ONCE DAILY 04/06/2017 04/17/2017 Inactive Xanax 0.5 mg tablet RxNorm: 371165 Tablet(s) TAKE ONE TABLET BY MOUTH THREE TIMES DAILY 04/04/2017 06/02/2017 Inactive Percocet 10 mg-325 mg tablet RxNorm: 9281657 1-2 Tablet(s) PO Q6 PRN 04/04/2017 04/18/2017 Inactive cyclobenzaprine 10 mg tablet RxNorm: 853940 TAKE ONE TABLET BY MOUTH EVERY 8 HOURS NEEDED 04/03/2017 06/01/2017 Inactive potassium chloride ER 20 mEq tablet,extended release RxNorm: 916138 1 Tablet(s) PO daily 03/28/2017 06/01/2017 Inactive nystatin 100,000 unit/gram topical cream RxNorm: 336979 1 Application TOP BID 03/27/2017 04/09/2017 Inactive Levsin 0.125 mg tablet RxNorm: 0912289 1 Tablet(s) PO Q4 PRN 1-2 Tablet(s) PO Q4 PRN 03/27/2017 04/24/2017 Inactive promethazine 25 mg tablet RxNorm: 478060 1 Tablet(s) PO Q6 PRN 03/23/2017 03/29/2017 Inactive nystatin 100,000 unit/gram topical powder RxNorm: 586636 APPLY POWDER TOPICALLY 4 TIMES DAILY 03/17/2017 05/10/2017 Inactive Percocet 10 mg-325 mg tablet RxNorm: 1453722 1-2 Tablet(s) PO Q6 PRN 03/09/2017 03/23/2017 Inactive Levsin 0.125 mg tablet RxNorm: 8495115 1-2 Tablet(s) PO Q4 PRN 03/06/2017 03/26/2017 Inactive promethazine 25 mg tablet RxNorm: 346867 1 Tablet(s) PO Q6 PRN 03/06/2017 03/13/2017 Inactive potassium chloride ER 20 mEq tablet,extended release RxNorm: 784096 1 Tablet(s) PO BID 02/23/2017 03/09/2017 Inactive Levsin/SL 0.125 mg sublingual tablet RxNorm: 9592565 1-2 Tablet(s) SL Q4 PRN 02/17/2017 03/26/2017 Inactive potassium chloride ER 20 mEq tablet,extended release RxNorm: 816313 1 Tablet(s) PO BID 02/17/2017 02/21/2017 Inactive magnesium oxide 400 mg tablet RxNorm: 016951 1 Tablet(s) PO daily 02/17/2017 02/21/2017 Inactive then twice weekly thereafter Levsin 0.125 mg tablet RxNorm: 8737926 1-2 Tablet(s) PO Q4 PRN 02/17/2017 02/16/2017 Inactive promethazine 25 mg tablet RxNorm: 505024 1 Tablet(s) PO Q6 PRN 02/10/2017 03/05/2017 Inactive Percocet 10 mg-325 mg tablet RxNorm: 7720770 1-2 Tablet(s) PO Q6 PRN 02/09/2017 02/23/2017 Inactive Cymbalta 60 mg capsule,delayed release RxNorm: 418448 1 Capsule(s) PO daily take with 30mg tablet 02/06/2017 05/06/2017 Inactive Cymbalta 30 mg capsule,delayed release RxNorm: 437625 1 Capsule(s) PO daily take with 60mg tablet 02/06/2017 02/19/2018 Inactive take with 60mg=90mg Vitamin D2 50,000 unit capsule RxNorm: 678205 1 Capsule(s) PO daily 01/17/2017 01/16/2017 Inactive daily x 6 mths Tresiba FlexTouch U-100 100 unit/mL (3 mL) subcutaneous insulin pen RxNorm: 6626020 40 Unit(s) SQ daily 01/17/20172016 Inactive Tresiba FlexTouch U-100 100 unit/mL (3 mL) subcutaneous insulin pen RxNorm: 1172099 40 Unit(s) SQ daily 01/17/20172016 Inactive Vitamin D2 50,000 unit capsule RxNorm: 556033 1 Capsule(s) PO daily 01/17/2017 10/26/2017 Inactive daily x 6 mths Cymbalta 30 mg capsule,delayed release RxNorm: 303348 1 Capsule(s) PO daily 01/16/2017 02/05/2017 Inactive take with 60mg=90mg Percocet 10 mg-325 mg tablet RxNorm: 1880528 1-2 Tablet(s) PO Q6 PRN 01/13/2017 01/27/2017 Inactive gabapentin 600 mg tablet RxNorm: 886336 TAKE ONE & ONE-HALF TABLETS BY MOUTH THREE TIMES DAILY 01/10/2017 05/09/2017 Inactive Percocet 10 mg-325 mg tablet RxNorm: 9035618 1-2 Tablet(s) PO Q6 PRN 12/21/2016 01/04/2017 Inactive Xanax 0.5 mg tablet RxNorm: 330518 Tablet(s) TAKE ONE TABLET BY MOUTH THREE TIMES DAILY 12/20/2016 02/15/2017 Inactive promethazine 25 mg tablet RxNorm: 072530 1 Tablet(s) PO Q6 PRN 12/16/2016 12/18/2016 Inactive prednisone 20 mg tablet RxNorm: 913075 2 Tablet(s) PO daily 12/14/2016 Inactive prednisone 20 mg tablet RxNorm: 843175 2 Tablet(s) PO daily 03/26/2017 Inactive Eliquis 5 mg tablet RxNorm: 2942358 1 Tablet(s) PO BID 201601/11/2017 Inactive doxycycline monohydrate 100 mg tablet RxNorm: 266841 1 Tablet(s) PO BID 12/13/2016 03/26/2017 Inactive give doxycyline hyclate cyclobenzaprine 10 mg tablet RxNorm: 310084 TAKE ONE TABLET BY MOUTH EVERY 8 HOURS NEEDED 12/09/2016 12/28/2016 Inactive Cymbalta 60 mg capsule,delayed release RxNorm: 769412 TAKE ONE CAPSULE BY MOUTH ONCE DAILY 11/30/2016 02/05/2017 Inactive promethazine 25 mg tablet RxNorm: 441997 2 Tablet(s) PO Q6 PRN 11/29/2016 12/16/2016 Inactive Percocet 10 mg-325 mg tablet RxNorm: 4573675 1-2 Tablet(s) PO Q6 PRN 11/24/2016 12/08/2016 Inactive mupirocin 2 % topical ointment RxNorm: 028075 1 Application TOP BID 11/11/2016 11/24/2016 Inactive Xanax 0.5 mg tablet RxNorm: 029669 Tablet(s) TAKE ONE TABLET BY MOUTH THREE TIMES DAILY 11/11/2016 12/19/2016 Inactive Belviq 10 mg tablet RxNorm: 4484735 1 Tablet(s) PO BID 201612/10/2016 Inactive Toprol XL 100 mg tablet,extended release RxNorm: 863047 TAKE ONE TABLET BY MOUTH TWICE DAILY 11/04/2016 04/02/2017 Inactive albuterol sulfate concentrate 2.5 mg/0.5 mL solution for nebulization RxNorm: 723569 USE ONE VIAL IN NEBULIZER EVERY 4 TO 6 HOURS NEEDED 11/03/2016 11/12/2016 Inactive Percocet 10 mg-325 mg tablet RxNorm: 5067406 1-2 Tablet(s) PO Q6 PRN 10/31/2016 11/23/2016 Inactive promethazine 25 mg tablet RxNorm: 167796 2 Tablet(s) PO Q6 PRN 10/28/2016 11/28/2016 Inactive nystatin 100,000 unit/mL oral suspension RxNorm: 103547 5 Milliliter(s) PO QID 10/28/2016 11/06/2016 Inactive Levemir FlexTouch 100 unit/mL (3 mL) subcutaneous insulin pen RxNorm: 446618 45 Unit(s) SQ BID 10/28/2016 01/16/2017 Inactive 45 q am and 40 q anita cyclobenzaprine 10 mg tablet RxNorm: 676899 TAKE ONE TABLET BY MOUTH EVERY 8 HOURS NEEDED 10/21/2016 11/09/2016 Inactive Lasix 40 mg tablet RxNorm: 276059 TAKE ONE TABLET BY MOUTH TWICE DAILY 10/18/2016 04/15/2017 Inactive Percocet 10 mg-325 mg tablet RxNorm: 3373405 1-2 Tablet(s) PO Q6 PRN 10/18/2016 10/30/2016 Inactive acyclovir 400 mg tablet RxNorm: 162789 2 Tablet(s) PO QID 10/1310/22/2016 Inactive Lasix 40 mg tablet RxNorm: 957834 TAKE ONE TABLET BY MOUTH TWICE DAILY 10/10/2016 10/17/2016 Inactive ropinirole 1 mg tablet RxNorm: 242213 TAKE ONE TABLET BY MOUTH AT BEDTIME 10/10/2016 04/07/2017 Inactive nystatin 100,000 unit/mL oral suspension RxNorm: 888619 5 Milliliter(s) PO QID x 10 days 09/30/2016 10/09/2016 Inactive nystatin 100,000 unit/mL oral suspension RxNorm: 225959 5 Milliliter(s) PO QID x 10 days 09/30/2016 10/09/2016 Inactive Swish et swallow Flonase Allergy Relief 50 mcg/actuation nasal spray, suspension RxNorm: 6242166 2 Hum[place] NASAL daily 09/23/20162016 Inactive Percocet 10 mg-325 mg tablet RxNorm: 9702537 1-2 Tablet(s) PO Q6 PRN 09/23/2016 10/17/2016 Inactive doxycycline monohydrate 100 mg tablet RxNorm: 977498 1 Tablet(s) PO BID 09/23/2016 10/02/2016 Inactive give doxycyline hyclate Levemir FlexTouch 100 unit/mL (3 mL) subcutaneous insulin pen RxNorm: 029512 40 Unit(s) SQ BID 09/15/2016 10/27/2016 Inactive nystatin 100,000 unit/gram topical powder RxNorm: 898963 1 Application TOP QID 09/13/2016 09/22/2016 Inactive Voltaren 1 % topical gel RxNorm: 483706 4 Gram(s) TOP QID 09/1303/11/2017 Inactive Anusol-HC 25 mg rectal suppository RxNorm: 9071138 1 Suppository RTL HS 09/13/2016 09/26/2016 Inactive hydrocodone 10 mg-acetaminophen 325 mg tablet RxNorm: 282924 1-2 Tablet(s) PO Q6 as needed 09/13/2016 09/22/2016 Inactive Linzess 145 mcg capsule RxNorm: 4099203 1 Capsule(s) PO daily 09/01/2016 10/26/2017 Inactive Linzess 145 mcg capsule RxNorm: 1400374 1 Capsule(s) PO daily 09/01/2016 08/31/2016 Inactive Zofran 4 mg tablet RxNorm: 097407 TAKE ONE TABLET BY MOUTH EVERY 4 TO 6 HOURS NEEDED 08/29/2016 08/02/2017 Inactive Voltaren 1 % topical gel RxNorm: 905950 4 Gram(s) TOP QID 08/2309/12/2016 Inactive levothyroxine 88 mcg tablet RxNorm: 976651 TAKE ONE TABLET BY MOUTH ONCE DAILY 08/19/2016 12/16/2016 Inactive hydrocodone 10 mg-acetaminophen 325 mg tablet RxNorm: 796079 1 Tablet(s) PO Q6 as needed 08/17/2016 09/12/2016 Inactive nystatin 100,000 unit/gram topical powder RxNorm: 483299 1 Application TOP QID 08/16/2016 08/25/2016 Inactive Cymbalta 60 mg capsule,delayed release RxNorm: 063718 TAKE ONE CAPSULE BY MOUTH ONCE DAILY 08/10/2016 11/29/2016 Inactive Voltaren 1 % topical gel RxNorm: 224546 4 Gram(s) TOP QID 08/1008/22/2016 Inactive Voltaren 1 % topical gel RxNorm: 093139 4 Gram(s) TOP QID 08/1008/09/2016 Inactive promethazine 25 mg tablet RxNorm: 868545 TAKE ONE TABLET BY MOUTH EVERY 8 HOURS NEEDED FOR NAUSEA 07/29/20162017 Inactive nystatin 100,000 unit/gram topical powder RxNorm: 852212 1 Application TOP QID 07/26/2016 08/04/2016 Inactive Levemir FlexTouch U-100 Insulin 100 unit/mL (3 mL) subcutaneous pen RxNorm: 825043 35 Unit(s) SQ BID 07/26/201609/2016 Inactive 35 q am and 30 q pm cyclobenzaprine 10 mg tablet RxNorm: 130318 TAKE ONE TABLET BY MOUTH EVERY 8 HOURS NEEDED 07/14/2016 08/22/2016 Inactive hydrocodone 10 mg-acetaminophen 325 mg tablet RxNorm: 988530 1 Tablet(s) PO Q6 as needed 07/11/2016 08/16/2016 Inactive nystatin 100,000 unit/mL oral suspension RxNorm: 445028 5 Milliliter(s) PO QID x 10 days 07/05/2016 07/04/2016 Inactive nystatin 100,000 unit/mL oral suspension RxNorm: 480412 5 Milliliter(s) PO QID x 10 days 07/05/2016 07/04/2016 Inactive nystatin 100,000 unit/mL oral suspension RxNorm: 958204 5 Milliliter(s) PO QID x 10 days 07/05/2016 07/14/2016 Inactive Swish et swallow doxycycline monohydrate 100 mg tablet RxNorm: 996131 1 Tablet(s) PO BID 06/24/2016 07/03/2016 Inactive give doxycyline hyclate promethazine 25 mg tablet RxNorm: 924506 TAKE ONE TABLET BY MOUTH EVERY 8 HOURS NEEDED FOR NAUSEA 06/01/20162016 Inactive pantoprazole 40 mg tablet,delayed release RxNorm: 372349 1 Tablet(s) PO BID 05/25/2016 08/02/2017 Inactive Zofran 4 mg tablet RxNorm: 006140 1 Tablet(s) PO Q12 PRN TAKE 1 TABLET BY MOUTH EVERY 4 TO 6 HOURS NEEDED 05/24/2016 Inactive hydrocodone 10 mg-acetaminophen 325 mg tablet RxNorm: 422762 1 Tablet(s) PO Q6 as needed 05/24/2016 07/10/2016 Inactive Levemir FlexTouch 100 unit/mL (3 mL) subcutaneous insulin pen RxNorm: 003884 25 Unit(s) SQ BID 05/24/2016 06/22/2016 Inactive Xanax 0.5 mg tablet RxNorm: 664180 Tablet(s) TAKE ONE TABLET BY MOUTH THREE TIMES DAILY 05/11/2016 07/09/2016 Inactive BD Insulin Pen Needle UF Short 31 gauge x 5/16" RxNorm: [facility] [place] 05/06/2016 05/05/2016 Inactive BD Insulin Pen Needle UF Short 31 gauge x 5/16" RxNorm: [facility] [place] 05/06/2016 06/04/2016 Inactive colestipol 1 gram tablet RxNorm: 4700528 Tablet(s) TAKE 1 TABLET BY MOUTH TWICE DAILY 04/22/2016 04/16/2017 Inactive Levemir FlexTouch 100 unit/mL (3 mL) subcutaneous insulin pen RxNorm: 530841 20 Unit(s) SQ BID 04/19/2016 05/18/2016 Inactive 25 UNITS Q AM AND 20 UNITS Q HS Cartia XT 180 mg capsule,extended release RxNorm: 454343 Capsule(s) BID 04/11/2016 04/05/2017 Inactive hydrocodone 10 mg-acetaminophen 325 mg tablet RxNorm: 035242 1 Tablet(s) PO Q6 as needed 04/11/2016 05/23/2016 Inactive Levemir FlexTouch 100 unit/mL (3 mL) subcutaneous insulin pen RxNorm: 629170 20 Unit(s) SQ BID 04/11/2016 04/18/2016 Inactive 20 UNITS Q AM AND 15 UNITS Q HS X 1 WEEK THEN 20 UNITS BID levothyroxine 88 mcg tablet RxNorm: 862262 1 Tablet(s) PO daily 03/21/2016 07/18/2016 Inactive Cymbalta 60 mg capsule,delayed release RxNorm: 979737 1 Capsule(s) PO daily 03/21/2016 07/18/2016 Inactive diltiazem ER (XR/XT) 240 mg capsule,extended release, controlled RxNorm: 726580 1 Capsule(s) PO BID 03/18/20162017 Inactive doxycycline hyclate 100 mg tablet RxNorm: 989519 1 Tablet(s) PO BID 03/11/2016 03/17/2016 Inactive Levemir FlexTouch 100 unit/mL (3 mL) subcutaneous insulin pen RxNorm: 028465 10 Unit(s) SQ BID 03/11/2016 04/09/2016 Inactive Lasix 40 mg tablet RxNorm: 890030 1 Tablet(s) PO BID 201509/06/2016 Inactive gabapentin 600 mg tablet RxNorm: 756314 Tablet(s) 1.5 TABLET(S) PO TID 03/04/2016 08/30/2016 Inactive Toujeo SoloStar 300 unit/mL (1.5 mL) subcutaneous insulin pen RxNorm: 3603526 10 Unit(s) SQ QHS 02/26/2016 03/26/2016 Inactive polymyxin B sulfate 10,000 unit-trimethoprim 1 mg/mL eye drops RxNorm: 737885 2 Drop(s) OPH TID 02/26/2016 03/03/2016 Inactive Lasix 20 mg tablet RxNorm: 602770 2 Tablet(s) PO BID TAKE 2 TABLETS BY MOUTH EVERY MORNING AND 2 TABLET BY MOUTH AT 3 PM 02/26/2016 03/10/2016 Inactive cyclobenzaprine 10 mg tablet RxNorm: 473524 Tablet(s) TABLET(S) TABLET(S) 1 TABLET (S) PO NEEDED TAKE 1 TABLET BY MOUTH EVERY 8 HOURS NEEDED 02/26/2016 07/13/2016 Inactive early fill- pt lost med Levemir FlexTouch 100 unit/mL (3 mL) subcutaneous insulin pen RxNorm: 823441 16 Unit(s) SQ QHS 02/18/2016 02/17/2016 Inactive Levemir FlexTouch 100 unit/mL (3 mL) subcutaneous insulin pen RxNorm: 341326 16 Unit(s) SQ QHS 02/18/2016 02/25/2016 Inactive Levemir 100 unit/mL subcutaneous solution RxNorm: 903795 16 Unit(s) SQ QHS 02/15/2016 02/17/2016 Inactive disp needles as well Effexor XR 37.5 mg capsule,extended release RxNorm: 430333 1 Capsule(s) QPM CAPSULE(S) PO TAKE 2 CAPSULES BY MOUTH EVERY MORNING AND 1 CAPSULE BY MOUTH EVERY NIGHT AT BEDTIME 02/15/20162015 Inactive clotrimazole 100 mg vaginal tablet RxNorm: 877656 1 Tablet(s) VAG QHS 02/05/2016 02/11/2016 Inactive clotrimazole 100 mg vaginal tablet RxNorm: 616047 1 Tablet(s) VAG QHS 02/05/2016 02/04/2016 Inactive hydrocodone 10 mg-acetaminophen 325 mg tablet RxNorm: 973647 1 Tablet(s) PO Q6 as needed 02/05/2016 04/10/2016 Inactive flecainide 100 mg tablet RxNorm: 934547 1 Tablet(s) PO BID No Stop Date Active potassium chloride ER 10 mEq tablet,extended release RxNorm: 158085 1 Tablet(s) PO daily 1 TABLET(S) PO QDAY PRN TAKE WITH LASIX 02/02/2016 01/26/2017 Inactive Brovana 15 mcg/2 mL solution for nebulization RxNorm: 781502 2 Milliliter(s) INH BID PRN 02/02/2016 03/20/2016 Inactive promethazine 25 mg tablet RxNorm: 502804 1 Tablet(s) PO Q8 as needed nausea 01/27/2016 03/20/2016 Inactive promethazine 25 mg tablet RxNorm: 621920 1 Tablet(s) PO Q6 PRN 01/27/2016 02/03/2016 Inactive nystatin 100,000 unit/mL oral suspension RxNorm: 855039 5 Unit(s) PO QID 01/12/2016 01/21/2016 Inactive promethazine 25 mg tablet RxNorm: 731341 1 Tablet(s) PO Q6 PRN 12/30/2015 01/06/2016 Inactive hydrocodone 7.5 mg-acetaminophen 325 mg tablet RxNorm: 846373 1 Tablet(s) PO q 6 hours prn for pain 12/10/2015 01/06/2016 Inactive Xanax 0.5 mg tablet RxNorm: 558983 TAKE ONE TABLET BY MOUTH THREE TIMES DAILY 12/02/2015 12/31/2015 Inactive Xanax 0.5 mg tablet RxNorm: 649625 Tablet(s) TAKE 1 TABLET BY MOUTH THREE TIMES DAILY 12/02/2015 11/30/2015 Inactive Anusol-HC 25 mg rectal suppository RxNorm: 6409460 1 Suppository RTL HS 11/27/2015 09/12/2016 Inactive ropinirole 1 mg tablet RxNorm: 950070 1 Tablet(s) PO QHS 201505/24/2016 Inactive nystatin 100,000 unit/mL oral suspension RxNorm: 944661 5 Unit(s) PO QID 11/20/2015 11/29/2015 Inactive albuterol sulfate concentrate 2.5 mg/0.5 mL solution for nebulization RxNorm: 887810 3 Milliliter(s) INH Q4-6H as needed 11/10/2015 11/02/2016 Inactive doxycycline monohydrate 100 mg tablet RxNorm: 095305 1 Tablet(s) PO BID 11/10/2015 11/19/2015 Inactive give doxycyline hyclate promethazine 25 mg tablet RxNorm: 275303 1 Tablet(s) PO Q6 PRN 11/05/2015 11/12/2015 Inactive Bactroban 2 % topical ointment RxNorm: 594430 1 APPLICATION TOP BID 10/27/2015 10/26/2017 Inactive Belviq 10 mg tablet RxNorm: 2528501 1 Tablet(s) PO BID 201511/25/2015 Inactive hydrocodone 7.5 mg-acetaminophen 325 mg tablet RxNorm: 924318 1 Tablet(s) PO q 6 hours prn for pain 10/20/2015 11/18/2015 Inactive Toprol XL 100 mg tablet,extended release RxNorm: 823656 Tablet(s) TAKE 1 TABLET BY MOUTH TWICE DAILY 10/16/20152016 Inactive Diflucan 150 mg tablet RxNorm: 765244 1 Tablet(s) PO every other day 10/14/2015 10/23/2015 Inactive Xanax 0.5 mg tablet RxNorm: 597269 Tablet(s) TAKE 1 TABLET BY MOUTH THREE TIMES DAILY 10/14/2015 05/10/2016 Inactive Toprol XL 100 mg tablet,extended release RxNorm: 849223 Tablet(s) TAKE 1 TABLET BY MOUTH TWICE DAILY 10/13/20152015 Inactive cyclobenzaprine 10 mg tablet RxNorm: 400234 Tablet(s) TABLET(S) TABLET(S) 1 TABLET (S) PO NEEDED TAKE 1 TABLET BY MOUTH EVERY 8 HOURS NEEDED 10/02/2015 10/14/2015 Inactive Zofran 4 mg tablet RxNorm: 166824 Tablet(s) 1 TABLET(S) PRN TAKE 1 TABLET BY MOUTH EVERY 4 TO 6 HOURS NEEDED 09/29/2015 12/27/2015 Inactive Synthroid 88 mcg tablet RxNorm: 732963 1 Tablet(s) PO daily 1 TABLET(S) PO DAILY 09/29/2015 10/28/2015 Inactive Patient requests 90 days supply promethazine 25 mg tablet RxNorm: 333084 1 Tablet(s) PO Q6 PRN 09/29/2015 11/04/2015 Inactive Lasix 20 mg tablet RxNorm: 342067 2 Tablet(s) PO BID 201501/18/2016 Inactive promethazine 25 mg tablet RxNorm: 286236 1 Tablet(s) PO Q6 PRN 09/22/2015 09/28/2015 Inactive hydrocodone 7.5 mg-acetaminophen 325 mg tablet RxNorm: 950513 1 Tablet(s) PO q 6 hours prn for pain 09/17/2015 10/16/2015 Inactive WelChol 625 mg tablet RxNorm: 698438 3 Tablet(s) PO BID 201503/26/2017 Inactive promethazine 25 mg tablet RxNorm: 992760 1 Tablet(s) PO Q8 as needed 09/07/2015 10/26/2017 Inactive Levemir 100 unit/mL subcutaneous solution RxNorm: 650590 16 Unit(s) SQ QHS 09/01/2015 02/14/2016 Inactive pantoprazole 40 mg tablet,delayed release RxNorm: 765830 1 Tablet(s) PO daily 09/01/2015 05/24/2016 Inactive Effexor XR 37.5 mg capsule,extended release RxNorm: 021080 Capsule(s) CAPSULE(S) PO TAKE 2 CAPSULES BY MOUTH EVERY MORNING AND 1 CAPSULE BY MOUTH EVERY NIGHT AT BEDTIME 08/27/2015 02/14/2016 Inactive promethazine 25 mg tablet RxNorm: 565958 1 Tablet(s) PO Q8 as needed 08/13/2015 09/06/2015 Inactive gabapentin 600 mg tablet RxNorm: 889011 Tablet(s) 1.5 TABLET(S) PO TID 08/13/2015 02/08/2016 Inactive hydrocodone 7.5 mg-acetaminophen 325 mg tablet RxNorm: 913163 1 Tablet(s) PO q 6 hours prn for pain 08/10/2015 09/08/2015 Inactive Zofran 4 mg tablet RxNorm: 916222 Tablet(s) 1 TABLET(S) PRN TAKE 1 TABLET BY MOUTH EVERY 4 TO 6 HOURS NEEDED 08/04/2015 08/03/2015 Inactive Zofran 4 mg tablet RxNorm: 523429 Tablet(s) 1 TABLET(S) PRN TAKE 1 TABLET BY MOUTH EVERY 4 TO 6 HOURS NEEDED 08/04/2015 09/28/2015 Inactive doxycycline monohydrate 100 mg tablet RxNorm: 579670 1 Tablet(s) PO BID 08/04/2015 08/10/2015 Inactive give doxycyline hyclate Diflucan 150 mg tablet RxNorm: 178924 1 Tablet(s) PO every other day 07/31/2015 08/09/2015 Inactive nystatin 100,000 unit/mL oral suspension RxNorm: 089480 5 Milliliter(s) PO QID 07/31/2015 07/30/2015 Inactive Diflucan 150 mg tablet RxNorm: 674432 1 Tablet(s) PO every other day 07/31/2015 07/30/2015 Inactive nystatin 100,000 unit/mL oral suspension RxNorm: 896186 5 Milliliter(s) PO QID 07/31/2015 08/09/2015 Inactive Ceftin 500 mg tablet RxNorm: 000464 1 Tablet(s) PO BID 201507/23/2015 Inactive Ceftin 500 mg tablet RxNorm: 963201 1 Tablet(s) PO BID Pre-medicate with benadryl 50 mg, pepcid 20 mg, and nathanael before each dose 07/24/2015 07/30/2015 Inactive cyclobenzaprine 10 mg tablet RxNorm: 792219 TABLET(S) TABLET(S) 1 TABLET(S) PO NEEDED TAKE 1 TABLET BY MOUTH EVERY 8 HOURS NEEDED 201502/25/2016 Inactive early fill- pt lost med Synthroid 88 mcg tablet RxNorm: 064954 1 TABLET(S) PO DAILY 07/201509/28/2015 Inactive Patient requests 90 days supply cyclobenzaprine 10 mg tablet RxNorm: 567765 Tablet(s) TABLET(S) TABLET(S) 1 TABLET (S) PO NEEDED TAKE 1 TABLET BY MOUTH EVERY 8 HOURS NEEDED 07/23/2015 10/01/2015 Inactive early fill- pt lost med Promethazine VC 6.25 mg-5 mg/5 mL syrup RxNorm: 4049977 1-2 Teaspoon(s) PO Q6 PRN as needed 07/22/2015 03/20/2016 Inactive Diflucan 150 mg tablet RxNorm: 019864 1 Tablet(s) PO daily 06/201507/22/2015 Inactive Lasix 20 mg tablet RxNorm: Tablet(s) TAKE 2 TABLETS BY MOUTH EVERY MORNING AND 2 TABLET BY MOUTH AT 3PM 07/16/2015 09/21/2015 Inactive Toprol XL 100 mg tablet,extended release RxNorm: 449147 Tablet(s) TAKE 1 TABLET BY MOUTH TWICE DAILY 07/16/20152015 Inactive Cartia XT 180 mg capsule,extended release RxNorm: 892637 Capsule(s) 1 CAPSULE(S) PO DAILY TAKE 1 CAPSULE BY MOUTH AT BEDTIME ..TAKE THIS IN ADDITION TO 240 MG IN THE MORNING 07/14/2015 04/10/2016 Inactive diltiazem ER (XR/XT) 240 mg capsule,extended release, controlled RxNorm: 280057 Capsule(s) TAKE 1 CAPSULE BY MOUTH DAILY 07/14/2015 03/17/2016 Inactive gabapentin 600 mg tablet RxNorm: 389649 Tablet(s) 1.5 TABLET(S) PO TID 07/06/2015 08/12/2015 Inactive Phenergan 25 mg tablet RxNorm: 844324 1 Tablet(s) PO Q8 as needed nausea 06/29/2015 01/25/2016 Inactive doxycycline monohydrate 100 mg tablet RxNorm: 866284 1 Tablet(s) PO BID 06/29/2015 06/28/2015 Inactive doxycycline monohydrate 100 mg tablet RxNorm: 931951 1 Tablet(s) PO BID 06/29/2015 07/08/2015 Inactive give doxycyline hyclate doxycycline monohydrate 100 mg tablet RxNorm: 731469 1 Tablet(s) PO BID 06/29/2015 06/28/2015 Inactive Lasix 20 mg tablet RxNorm: 680447 Tablet(s) TAKE 2 TABLETS BY MOUTH EVERY MORNING AND 2 TABLET BY MOUTH AT 3PM 06/29/2015 07/15/2015 Inactive Lasix 20 mg tablet RxNorm: Tablet(s) TAKE 2 TABLETS BY MOUTH EVERY MORNING AND 1 TABLET BY MOUTH AT 3PM 06/26/2015 06/28/2015 Inactive Xanax 0.5 mg tablet RxNorm: 110797 Tablet(s) TAKE 1 TABLET BY MOUTH THREE TIMES DAILY 06/26/2015 07/25/2015 Inactive Kenalog 40 mg/mL suspension for injection RxNorm: 7687326 Milliliter(s) Inj 06/26/2015 06/26/2015 Inactive hydrocodone 7.5 mg-acetaminophen 325 mg tablet RxNorm: 601396 1 Tablet(s) PO q 6 hours prn for pain 06/26/2015 07/25/2015 Inactive Dexilant 60 mg capsule, delayed release RxNorm: 331872 1 Capsule(s) PO daily 06/26/2015 08/24/2015 Inactive colestipol 1 gram tablet RxNorm: 7432441 1 TABLET(S) PO BID TAKE 1 TABLET BY MOUTH TWICE DAILY 06/16/2015 03/11/2016 Inactive hydrocodone 7.5 mg-acetaminophen 325 mg tablet RxNorm: 218012 1 Tablet(s) PO q 6 hours prn for pain 06/11/2015 06/25/2015 Inactive cyclobenzaprine 10 mg tablet RxNorm: 586675 TABLET(S) TABLET(S) 1 TABLET(S) PO NEEDED TAKE 1 TABLET BY MOUTH EVERY 8 HOURS NEEDED 201507/22/2015 Inactive early fill- pt lost med Zofran 4 mg tablet RxNorm: 884315 1 TABLET(S) PRN TAKE 1 TABLET BY MOUTH EVERY 4 TO 6 HOURS NEEDED 05/25/20152015 Inactive Zofran 4 mg tablet RxNorm: 065861 1 Tablet(s) PRN TAKE 1 TABLET BY MOUTH EVERY 4 TO 6 HOURS NEEDED 05/19/20152015 Inactive gabapentin 600 mg tablet RxNorm: 524964 1.5 TABLET(S) PO TID 07/05/2015 Inactive Lasix 20 mg tablet RxNorm: 471041 TAKE 2 TABLETS BY MOUTH EVERY MORNING AND 1 TABLET BY MOUTH AT 3PM 05/07/20152015 Inactive Effexor XR 37.5 mg capsule,extended release RxNorm: 155902 Capsule(s) CAPSULE(S) PO TAKE 2 CAPSULES BY MOUTH EVERY MORNING AND 1 CAPSULE BY MOUTH EVERY NIGHT AT BEDTIME 04/15/2015 08/26/2015 Inactive Diflucan 150 mg tablet RxNorm: 388464 1 Tablet(s) PO daily 04/18/2015 Inactive Victoza 3-Babak 0.6 mg/0.1 mL (18 mg/3 mL) subcutaneous pen injector RxNorm: 873455 1.8 Milligram(s) SQ daily 04/14/201508/10 Inactive Levaquin 500 mg tablet RxNorm: 846188 1 Tablet(s) PO daily 04/20/2015 Inactive potassium chloride ER 10 mEq tablet,extended release RxNorm: 316953 1 TABLET(S) PO QDAY PRN TAKE WITH LASIX 04/13/201504/2016 Inactive Effexor XR 37.5 mg capsule,extended release RxNorm: 231534 CAPSULE(S) PO TAKE 2 CAPSULES BY MOUTH EVERY MORNING AND 1 CAPSULE BY MOUTH EVERY NIGHT AT BEDTIME 04/10/2015 04/14/2015 Inactive pantoprazole 40 mg tablet,delayed release RxNorm: 682310 1 Tablet(s) PO daily 03/31/2015 08/31/2015 Inactive Dexilant 60 mg capsule, delayed release RxNorm: 900053 1 Capsule(s) PO daily 03/31/2015 03/31/2015 Inactive pantoprazole 40 mg tablet,delayed release RxNorm: 392223 1 Tablet(s) PO daily 03/31/2015 03/30/2015 Inactive Dexilant 60 mg capsule, delayed release RxNorm: 639625 1 Capsule(s) PO daily 03/31/2015 05/29/2015 Inactive Dexilant 60 mg capsule, delayed release RxNorm: 411666 1 Capsule(s) PO daily 03/30/2015 03/30/2015 Inactive hydrocodone 7.5 mg-acetaminophen 325 mg tablet RxNorm: 691943 1 Tablet(s) PO q 6 hours prn for pain 03/30/2015 04/28/2015 Inactive cyclobenzaprine 10 mg tablet RxNorm: 610808 TABLET(S) TABLET(S) 1 TABLET(S) PO NEEDED TAKE 1 TABLET BY MOUTH EVERY 8 HOURS NEEDED 201405/31/2015 Inactive early fill- pt lost med Xanax 0.5 mg tablet RxNorm: 479182 Tablet(s) TAKE 1 TABLET BY MOUTH THREE TIMES DAILY 03/25/2015 04/23/2015 Inactive Lasix 20 mg tablet RxNorm: 273446 TAKE 2 TABLETS BY MOUTH EVERY MORNING AND 1 TABLET BY MOUTH AT 3PM 03/23/20152014 Inactive Levemir Flexpen 100 unit/mL (3 mL) solution subcutaneous insulin pen RxNorm: 054275 15 Unit(s) SQ BID 03/20/20152015 Inactive give quanity sufficient for 1 month- Dexilant 60 mg capsule, delayed release RxNorm: 228247 1 Capsule(s) PO daily 03/19/2015 03/29/2015 Inactive Dexilant 60 mg capsule, delayed release RxNorm: 150844 1 Capsule(s) PO daily 03/19/2015 03/18/2015 Inactive Diflucan 150 mg tablet RxNorm: 047677 1 Tablet(s) PO every other day x7 doses 03/19/2015 03/21/2015 Inactive hydrocodone 7.5 mg-acetaminophen 325 mg tablet RxNorm: 137374 1 Tablet(s) PO q 6 hours prn for pain 02/27/2015 03/28/2015 Inactive Lasix 20 mg tablet RxNorm: 200099 TAKE 2 TABLETS BY MOUTH EVERY MORNING AND 1 TABLET BY MOUTH AT 3PM 02/27/20152014 Inactive omeprazole 20 mg capsule,delayed release RxNorm: 711134 1 CAPSULE(S) PO DAILY TAKE 1 CAPSULE BY MOUTH TWICE DAILY 02/26/2015 10/26/2017 Inactive Zofran 4 mg tablet RxNorm: 910228 1 Tablet(s) PRN TAKE 1 TABLET BY MOUTH EVERY 4 TO 6 HOURS NEEDED 02/24/20152014 Inactive fluconazole 150 mg tablet RxNorm: 823726 1 Tablet(s) PO every other day x 5 doses 02/19/2015 02/28/2015 Inactive cyclobenzaprine 10 mg tablet RxNorm: 077628 TABLET(S) TABLET(S) 1 TABLET(S) PO NEEDED TAKE 1 TABLET BY MOUTH EVERY 8 HOURS NEEDED 201403/29/2015 Inactive early fill- pt lost med hydrocodone 7.5 mg-acetaminophen 325 mg tablet RxNorm: 853406 1 Tablet(s) PO q 6 hours prn for pain 01/29/2015 02/26/2015 Inactive Xanax 0.5 mg tablet RxNorm: 696721 Tablet(s) TAKE 1 TABLET BY MOUTH THREE TIMES DAILY 01/29/2015 02/27/2015 Inactive Bactroban 2 % topical ointment RxNorm: 143271 1 APPLICATION TOP BID 01/26/2015 10/26/2015 Inactive Bactroban 2 % topical ointment RxNorm: 920224 1 Application TOP BID 01/15/2015 01/25/2015 Inactive doxycycline hyclate 100 mg tablet RxNorm: 325812 1 Tablet(s) PO BID 01/15/2015 01/21/2015 Inactive nystatin 100,000 unit/mL oral suspension RxNorm: 623765 5 Milliliter(s) PO QID 01/15/2015 01/24/2015 Inactive Cartia XT 180 mg capsule,extended release RxNorm: 619986 1 CAPSULE(S) PO DAILY TAKE 1 CAPSULE BY MOUTH AT BEDTIME ..TAKE THIS IN ADDITION TO 240 MG IN THE MORNING 01/13/2015 07/13/2015 Inactive Lasix 20 mg tablet RxNorm: 565784 TAKE 2 TABLETS BY MOUTH EVERY MORNING AND 1 TABLET BY MOUTH AT 3PM 01/08/20152014 Inactive fluconazole 150 mg tablet RxNorm: 518242 1 Tablet(s) PO daily 01/01/2015 01/05/2015 Inactive hydrocodone 7.5 mg-acetaminophen 325 mg tablet RxNorm: 213353 1 Tablet(s) PO q 6 hours prn for pain 01/01/2015 01/28/2015 Inactive colestipol 1 gram tablet RxNorm: 7244745 1 TABLET(S) PO BID TAKE 1 TABLET BY MOUTH TWICE DAILY 12/18/2014 06/15/2015 Inactive colestipol 1 gram tablet RxNorm: 2504376 1 TABLET(S) PO BID TAKE 1 TABLET BY MOUTH TWICE DAILY 12/18/2014 09/13/2015 Inactive Lasix 20 mg tablet RxNorm: 710755 TAKE 2 TABLETS BY MOUTH EVERY MORNING AND 2 TABLETS AND AT 3PM 12/11/2014 12/25/2014 Inactive cyclobenzaprine 10 mg tablet RxNorm: 004282 TABLET(S) 1 TABLET(S) PO NEEDED TAKE 1 TABLET BY MOUTH EVERY 8 HOURS NEEDED 12/11/2014 05/31/2017 Inactive Lasix 20 mg tablet RxNorm: 246814 Tablet(s) TABLET(S) PO TAKE 2 TABLETS BY MOUTH EVERY MORNING AND 1 TABLET BY MOUTH AT 3 PM 12/10/2014 12/10/2014 Inactive fill early- pt lost them cyclobenzaprine 10 mg tablet RxNorm: 252681 Tablet(s) TABLET(S) 1 TABLET(S) PO NEEDED TAKE 1 TABLET BY MOUTH EVERY 8 HOURS NEEDED 201402/15/2015 Inactive early fill- pt lost med cyclobenzaprine 10 mg tablet RxNorm: 584792 TABLET(S) 1 TABLET(S) PO NEEDED TAKE 1 TABLET BY MOUTH EVERY 8 HOURS NEEDED 12/02/2014 12/09/2014 Inactive hydrocodone 7.5 mg-acetaminophen 325 mg tablet RxNorm: 071980 1 Tablet(s) PO q 6 hours prn for pain 12/01/2014 12/30/2014 Inactive diltiazem ER (XR/XT) 240 mg capsule,extended release, controlled RxNorm: 033777 TAKE 1 CAPSULE BY MOUTH DAILY 11/30/2014 07/13/2015 Inactive Xanax 0.5 mg tablet RxNorm: 859173 1 Tablet(s) PO TID PRN as needed 11/19/2014 11/19/2014 Inactive (Appended: Controlled substance [id number]|1|0|1) Xanax 0.5 mg tablet RxNorm: 907775 TAKE 1 TABLET BY MOUTH THREE TIMES DAILY 11/19/2014 12/18/2014 Inactive Toprol XL 100 mg tablet,extended release RxNorm: 268622 TAKE 1 TABLET BY MOUTH TWICE DAILY 11/06/2014 07/15/2015 Inactive Diflucan 150 mg tablet RxNorm: 241275 1 Tablet(s) PO every other day x7 doses 11/05/2014 11/07/2014 Inactive omeprazole 20 mg capsule,delayed release RxNorm: 021153 1 Capsule(s) PO daily TAKE 1 CAPSULE BY MOUTH TWICE DAILY 11/04/2014 02/01/2015 Inactive cyclobenzaprine 10 mg tablet RxNorm: 036577 TABLET(S) 1 TABLET(S) PO NEEDED TAKE 1 TABLET BY MOUTH EVERY 8 HOURS NEEDED 10/28/2014 12/01/2014 Inactive hydrocodone 7.5 mg-acetaminophen 325 mg tablet RxNorm: 506749 1 Tablet(s) PO q 6 hours prn for pain 10/21/2014 11/19/2014 Inactive gabapentin 600 mg tablet RxNorm: 636537 1.5 Tablet(s) PO TID 04/30/2015 Inactive Xanax 0.5 mg tablet RxNorm: 250225 Tablet(s) TAKE 1 TABLET BY MOUTH THREE TIMES DAILY 10/01/2014 10/30/2014 Inactive (Response to an electronic controlled substance refill request - RxReferenceNumber: [id number]|1|0|1) Xanax 0.25 mg tablet RxNorm: 289515 1 Tablet(s) PO Q8 PRN as needed 09/30/2014 09/30/2014 Inactive Lasix 20 mg tablet RxNorm: 590363 Tablet(s) TAKE 2 TABLETS BY MOUTH EVERY MORNING AND 2 TABLETS BY MOUTH AT 3 PM 09/30/2014 11/12/2014 Inactive Victoza 3-Babak 0.6 mg/0.1 mL (18 mg/3 mL) subcutaneous pen injector RxNorm: 427700 1.2 MILLIGRAM(S) SQ DAILY 0.6 X 2 WEEKS THEN INCREASE TO 1.2MG DAILY 09/26/2014 04/13/2015 Inactive Xanax 0.5 mg tablet RxNorm: 049923 TAKE 1 TABLET BY MOUTH THREE TIMES DAILY 09/25/2014 09/30/2014 Inactive (Response to an electronic controlled substance refill request - RxReferenceNumber: [id number]|1|0|1) Zofran 4 mg tablet RxNorm: 670210 TAKE 1 TABLET BY MOUTH EVERY 4 TO 6 HOURS NEEDED 09/25/2014 09/27/2014 Inactive hydrocodone 7.5 mg-acetaminophen 325 mg tablet RxNorm: 555698 1 Tablet(s) PO q 6 hours prn for pain 09/19/2014 10/18/2014 Inactive cyclobenzaprine 10 mg tablet RxNorm: 294012 TABLET(S) 1 TABLET(S) PO NEEDED TAKE 1 [...] hydrocodone 7.5 mg-acetaminophen 325 mg tablet RxNorm: 796026 1 Tablet(s) PO q 6 hours prn for pain 08/21/2014 09/18/2014 Inactive Diflucan 150 mg tablet RxNorm: 162760 1 Tablet(s) PO every other day 08/15/2014 08/17/2014 Inactive cyclobenzaprine 10 mg tablet RxNorm: 810040 Tablet(s) 1 TABLET(S) PO NEEDED TAKE 1 TABLET BY MOUTH EVERY 8 HOURS NEEDED 08/12/2014 09/14/2014 Inactive Zofran 4 mg tablet RxNorm: 845083 TAKE 1 TABLET BY MOUTH EVERY 4 TO 6 HOURS NEEDED 07/31/2014 08/02/2014 Inactive Effexor XR 37.5 mg capsule,extended release RxNorm: 341423 CAPSULE(S) PO TAKE 2 CAPSULES BY MOUTH EVERY MORNING AND 1 CAPSULE BY MOUTH EVERY NIGHT AT BEDTIME 07/28/2014 02/15/2016 Inactive Lasix 20 mg tablet RxNorm: 135895 TAKE 2 TABLETS BY MOUTH EVERY MORNING AND 2 TABLETS BY MOUTH AT 3 PM 07/22/20142014 Inactive Diflucan 150 mg tablet RxNorm: 814055 1 Tablet(s) PO daily 06/201407/23/2014 Inactive hydrocodone 7.5 mg-acetaminophen 325 mg tablet RxNorm: 361563 1 Tablet(s) PO q 6 hours prn for pain 07/14/2014 08/12/2014 Inactive Synthroid 88 mcg tablet RxNorm: 655130 1 TABLET(S) PO DAILY 10/11/2014 Inactive Effexor XR 37.5 mg capsule,extended release RxNorm: 109600 Capsule(s) PO TAKE 2 CAPSULES BY MOUTH EVERY MORNING AND 1 CAPSULE BY MOUTH EVERY NIGHT AT BEDTIME 07/07/2014 04/09/2015 Inactive Effexor XR 37.5 mg capsule,extended release RxNorm: 315131 TAKE 2 CAPSULES BY MOUTH EVERY MORNING AND 1 CAPSULE BY MOUTH EVERY NIGHT AT BEDTIME 07/07/2014 01/02/2015 Inactive WelChol 625 mg tablet RxNorm: 400013 3 TABLET(S) PO BID 201410/04/2014 Inactive WelChol 625 mg tablet RxNorm: 511298 3 Tablet(s) PO BID 201402/01/2015 Inactive Zofran 4 mg tablet RxNorm: 024616 TAKE 1 TABLET BY MOUTH EVERY 4 TO 6 HOURS NEEDED 07/03/2014 07/05/2014 Inactive Lasix 20 mg tablet RxNorm: 911545 TAKE 2 TABLETS BY MOUTH EVERY MORNING AND 2 TABLETS BY MOUTH AT 3 PM 06/26/20142014 Inactive Diflucan 150 mg tablet RxNorm: 264616 1 Tablet(s) PO daily 06/19/2014 Inactive Promethazine VC 6.25 mg-5 mg/5 mL syrup RxNorm: 5051458 1-2 Teaspoon(s) PO Q6 PRN as needed 06/12/2014 07/21/2015 Inactive hydrocodone 7.5 mg-acetaminophen 325 mg tablet RxNorm: 497023 1 Tablet(s) PO q 6 hours prn for pain 06/03/2014 07/02/2014 Inactive Levaquin 500 mg tablet RxNorm: 351965 1 Tablet(s) PO daily 01/201506/05/2014 Inactive cyclobenzaprine 10 mg tablet RxNorm: 357703 Tablet(s) 1 TABLET(S) PO NEEDED TAKE 1 TABLET BY MOUTH EVERY 8 HOURS NEEDED 05/26/2014 No Stop Date Active cyclobenzaprine 10 mg tablet RxNorm: 001735 1 TABLET(S) PO NEEDED TAKE 1 TABLET BY MOUTH EVERY 8 HOURS NEEDED 05/26/2014 08/11/2014 Inactive Lasix 20 mg tablet RxNorm: 269034 Tablet(s) TABLET(S) PO TAKE 2 TABLETS BY MOUTH EVERY MORNING AND 2 TABLET BY MOUTH AT 3 PM 05/12/2014 06/25/2014 Inactive Combivent Respimat 20 mcg-100 mcg/actuation solution for inhalation RxNorm: 1178594 INHALE 1 PUFF BY MOUTH FOUR TIMES DAILY 05/12/2014 11/07/2014 Inactive fluconazole 150 mg tablet RxNorm: 479939 1 Tablet(s) PO UD 05/12/2014 Inactive 1 tab every other day x 5 doses Activella 0.5 mg-0.1 mg tablet RxNorm: 2561288 1 TABLET(S) PO DAILY TAKE 1 TABLET BY MOUTH DAILY FOR MENOPAUSAL SYMPTOM 05/02/2014 09/21/2015 Inactive hydrocodone 7.5 mg-acetaminophen 300 mg tablet RxNorm: 321101 Tablet(s) PO TAKE 1 TABLET BY MOUTH EVERY 6 HOURS NEEDED FOR PAIN 04/21/2014 06/03/2014 Inactive ( Appended: Controlled substance eRx refill - RxReferenceNumber: [id number]|1|0|1 ) Levaquin 500 mg tablet RxNorm: 262099 1 Tablet(s) PO daily 04/21/2014 Inactive Diflucan 150 mg tablet RxNorm: 671256 1 Tablet(s) PO every other day x 4 doses 04/10/2014 06/16/2014 Inactive Lasix 20 mg tablet RxNorm: 764255 TAKE 2 TABLETS BY MOUTH EVERY MORNING AND 1 TABLET BY MOUTH AT 3 PM 04/10/20142013 Inactive potassium chloride ER 10 mEq tablet,extended release RxNorm: 871524 1 TABLET(S) PO QDAY PRN TAKE WITH LASIX 04/09/2014 Inactive Levaquin 250 mg tablet RxNorm: 803172 1 Tablet(s) PO daily 08/201304/07/2014 Inactive 2 tabs today then 1 tab daily until gone atorvastatin 40 mg tablet RxNorm: 504928 1 Tablet(s) daily 1 TABLET(S) PO DAILY 03/25/2014 04/10/2016 Inactive TAKE 1 TABLET BY MOUTH DAILY (THIS IS AN INCREASE IN DOSAGE) Zofran 4 mg tablet RxNorm: 802359 1 Tablet(s) PO Q4-6H 201307/02/2014 Inactive Xanax 0.5 mg tablet RxNorm: 657296 TAKE 1 TABLET BY MOUTH THREE TIMES DAILY NEEDED 03/19/2014 04/17/2014 Inactive (Response to an electronic controlled substance refill request - RxReferenceNumber: [id number]|1|0|1) hydrocodone 7.5 mg-acetaminophen 300 mg tablet RxNorm: 411683 Tablet(s) PO TAKE 1 TABLET BY MOUTH EVERY 6 HOURS NEEDED FOR PAIN 03/19/2014 04/20/2014 Inactive ( Appended: Controlled substance eRx refill - RxReferenceNumber: [id number]|1|0|1 ) atorvastatin 40 mg tablet RxNorm: 572054 1 TABLET(S) PO DAILY 03/10/2014 03/24/2014 Inactive TAKE 1 TABLET BY MOUTH DAILY (THIS IS AN INCREASE IN DOSAGE) WelChol 625 mg tablet RxNorm: 425743 3 Tablet(s) PO BID 201303/06/2014 Inactive WelChol 625 mg tablet RxNorm: 074126 3 Tablet(s) PO BID 201307/04/2014 Inactive Lasix 20 mg tablet RxNorm: 081689 Tablet(s) TABLET(S) PO TAKE 2 TABLETS BY MOUTH EVERY MORNING AND 2 TABLET BY MOUTH AT 3 PM 03/03/2014 05/11/2014 Inactive Lasix 20 mg tablet RxNorm: 376301 TABLET(S) PO TAKE 2 TABLETS BY MOUTH EVERY MORNING AND 1 TABLET BY MOUTH AT 3 PM 02/20/2014 03/02/2014 Inactive gabapentin 600 mg tablet RxNorm: 167661 1.5 Tablet(s) PO TID 09/16/2014 Inactive Synthroid 88 mcg tablet RxNorm: 286884 1 TABLET(S) PO DAILY 05/18/2014 Inactive cyclobenzaprine 10 mg tablet RxNorm: 063125 1 TABLET(S) PO NEEDED TAKE 1 TABLET BY MOUTH EVERY 8 HOURS NEEDED 02/18/2014 05/25/2014 Inactive doxycycline hyclate 100 mg tablet RxNorm: 339354 1 Tablet(s) PO BID 02/13/2014 02/22/2014 Inactive Bactroban 2 % topical ointment RxNorm: 071475 1 Application TOP BID 02/13/2014 03/12/2014 Inactive Victoza 3-Babak 0.6 mg/0.1 mL (18 mg/3 mL) subcutaneous pen injector RxNorm: 266357 1.2 MILLIGRAM(S) SQ DAILY 0.6 X 2 WEEKS THEN INCREASE TO 1.2MG DAILY 02/10/2014 05/10/2014 Inactive albuterol sulfate 1.25 mg/3 mL solution for nebulization RxNorm: 050810 3 MILLILITER(S) INH TID 02/07/20142014 Inactive 1 box Victoza 3-Babak 0.6 mg/0.1 mL (18 mg/3 mL) subcutaneous pen injector RxNorm: 652420 1.8 Milligram(s) SQ daily 0.6 x 2 weeks then increase to 1.2mg daily 01/27/2014 05/26/2014 Inactive Levemir Flexpen 100 unit/mL (3 mL) solution subcutaneous insulin pen RxNorm: 195589 5units sq at hs, increase by 3 Unit(s) SQ at hs every 3days, goal FSBS 170 or less, do not increase above 20units, call doctor with report 01/27/2014 05/26/2014 Inactive hydrocodone 7.5 mg-acetaminophen 300 mg tablet RxNorm: 003500 Tablet(s) PO TAKE 1 TABLET BY MOUTH EVERY 6 HOURS NEEDED FOR PAIN 01/24/2014 03/18/2014 Inactive ( Appended: Controlled substance eRx refill - RxReferenceNumber: [id number]|1|0|1 ) Xanax 0.5 mg tablet RxNorm: 389134 1 Tablet(s) PO TID PRN as needed 01/24/2014 09/21/2014 Inactive (Appended: Controlled substance eRx refill - RxReferenceNumber: [id number]|1|0|1) Xanax 0.5 mg tablet RxNorm: 762111 TAKE 1 TABLET BY MOUTH THREE TIMES DAILY NEEDED 01/23/2014 02/21/2014 Inactive (Response to an electronic controlled substance refill request - RxReferenceNumber: [id number]|1|0|1) hydrocodone 5 mg-acetaminophen 325 mg tablet RxNorm: 722843 TAKE 1 TABLET BY MOUTH EVERY 6 HOURS NEEDED FOR PAIN 01/21/2014 02/19/2014 Inactive (Response to an electronic controlled substance refill request - RxReferenceNumber: [id number]| [id number]|1|0|1) Lasix 20 mg tablet RxNorm: 398743 TAKE 2 TABLETS BY MOUTH EVERY MORNING AND 1 TABLET BY MOUTH AT 3 PM 01/17/20142013 Inactive cyclobenzaprine 10 mg tablet RxNorm: 265208 1 Tablet(s) PO as needed TAKE 1 TABLET BY MOUTH EVERY 8 HOURS NEEDED 01/13/2014 02/17/2014 Inactive Anusol-HC 25 mg suppository RxNorm: 1261536 1 SUPPOSITORY RTL PRN ONE PER RECTUM NEEDED, UP TO TWICE DAILY FOR HEMORRHOID, NO MORE THAN 7 DAYS IN A ROW 01/10/2014 02/06/2014 Inactive Activella 0.5 mg-0.1 mg tablet RxNorm: 3077809 1 Tablet(s) PO daily TAKE 1 TABLET BY MOUTH DAILY FOR MENOPAUSAL SYMPTOM 01/08/2014 05/01/2014 Inactive gabapentin 600 mg tablet RxNorm: 910840 1.5 Tablet(s) PO TID 02/18/2014 Inactive gabapentin 600 mg tablet RxNorm: 296776 1.5 Tablet(s) PO TID 01/01/2014 Inactive hydrocodone 7.5 mg-acetaminophen 300 mg tablet RxNorm: 955868 Tablet(s) PO TAKE 1 TABLET BY MOUTH EVERY 6 HOURS NEEDED FOR PAIN 12/12/2013 01/23/2014 Inactive ( Appended: Controlled substance eRx refill - RxReferenceNumber: [id number]|1|0|1 ) Levaquin 250 mg tablet RxNorm: 703937 1 Tablet(s) PO daily 12/18/2013 Inactive 2 tabs today then 1 tab daily until gone Diflucan 150 mg tablet RxNorm: 689963 1 Tablet(s) PO daily 12/16/2013 Inactive do not stat until levaquin is completed Cartia XT 180 mg capsule,extended release RxNorm: 197081 1 CAPSULE(S) PO DAILY TAKE 1 CAPSULE BY MOUTH AT BEDTIME ..TAKE THIS IN ADDITION TO 240 MG IN THE MORNING 12/12/2013 12/06/2014 Inactive diltiazem ER (XR/XT) 240 mg capsule,extended release, controlled RxNorm: 382963 1 Capsule(s) PO daily TAKE 1 CAPSULE BY MOUTH EVERY DAY 11/28/2014 Inactive Effexor XR 37.5 mg capsule,extended release RxNorm: 593959 Capsule(s) PO TAKE 2 CAPSULES BY MOUTH EVERY MORNING AND 1 CAPSULE BY MOUTH EVERY NIGHT AT BEDTIME 12/04/2013 07/06/2014 Inactive Lasix 20 mg tablet RxNorm: 679749 TABLET(S) PO TAKE 2 TABLETS BY MOUTH EVERY MORNING AND 1 TABLET BY MOUTH AT 3 PM 12/04/2013 12/09/2014 Inactive Voltaren 1 % topical gel RxNorm: 125651 4 Gram(s) TOP QID 11/2703/26/2014 Inactive Cartia XT 180 mg capsule,extended release RxNorm: 550147 1 Capsule(s) PO daily TAKE 1 CAPSULE BY MOUTH AT BEDTIME ..TAKE THIS IN ADDITION TO 240 MG IN THE MORNING 11/27/2013 01/12/2015 Inactive Lasix 20 mg tablet RxNorm: 364917 TABLET(S) PO TAKE 2 TABLETS BY MOUTH EVERY MORNING AND 1 TABLET BY MOUTH AT 3 PM 11/26/2013 02/19/2014 Inactive colestipol 1 gram tablet RxNorm: 2799792 1 Tablet(s) PO BID TAKE 1 TABLET BY MOUTH TWICE DAILY 11/26/2013 11/20/2014 Inactive cyclobenzaprine 10 mg tablet RxNorm: 237296 Tablet(s) PO TAKE 1 TABLET BY MOUTH EVERY 8 HOURS NEEDED 11/21/20132013 Inactive Diflucan 150 mg tablet RxNorm: 547941 1 Tablet(s) PO daily TAKE 1 TABLET BY MOUTH EVERY OTHER DAY FOR 8 DOSES 11/14/201306/2013 Inactive peak flow meter-inh assist dev kit RxNorm: 1 dose Miscellaneous PRN 11/14/2013 10/27/2017 Inactive Effexor XR 37.5 mg capsule,extended release RxNorm: 572693 Capsule(s) PO TAKE 2 CAPSULES BY MOUTH EVERY MORNING AND 1 CAPSULE BY MOUTH EVERY NIGHT AT BEDTIME 11/04/2013 12/03/2013 Inactive Anusol-HC 25 mg suppository RxNorm: 9501414 1 Suppository RTL PRN one per rectum as needed, up to twice daily for hemorrhoid, no more than 7 days in a row 10/23/2013 10/22/2013 Inactive Anusol-HC 25 mg suppository RxNorm: 7123107 1 Suppository RTL PRN one per rectum as needed, up to twice daily for hemorrhoid, no more than 7 days in a row 10/23/2013 01/09/2014 Inactive Activella 0.5 mg-0.1 mg tablet RxNorm: 0131932 Tablet(s) PO TAKE 1 TABLET BY MOUTH DAILY FOR MENOPAUSAL SYMPTOM 10/21/2013 01/07/2014 Inactive cyclobenzaprine 10 mg tablet RxNorm: 817498 Tablet(s) PO TAKE 1 TABLET BY MOUTH EVERY 8 HOURS NEEDED 10/21/20132013 Inactive Lasix 20 mg tablet RxNorm: Tablet(s) PO TAKE 2 TABLETS BY MOUTH EVERY MORNING AND 1 TABLET BY MOUTH AT 3 PM 10/17/2013 02/25/2016 Inactive Bactroban 2 % topical ointment RxNorm: 981323 1 Application TOP BID 10/10/2013 11/06/2013 Inactive Zofran 4 mg tablet RxNorm: 755156 1 Tablet(s) PO Q4-6H 201303/20/2014 Inactive Bactroban 2 % topical ointment RxNorm: 229383 1 Application TOP BID 09/27/2013 10/09/2013 Inactive hydrocodone 5 mg-acetaminophen 325 mg tablet RxNorm: 818478 Tablet(s) PO TAKE 1 TABLET BY MOUTH EVERY 6 HOURS NEEDED FOR PAIN 09/26/2013 12/11/2013 Inactive ( Appended: Controlled substance eRx refill - RxReferenceNumber: [id number]|1|0|1 ) hydrocodone 5 mg-acetaminophen 325 mg tablet RxNorm: 685363 1 Tablet(s) PO Q6 PRN 09/26/2013 01/24/2014 Inactive cyclobenzaprine 10 mg tablet RxNorm: 919034 Tablet(s) PO TAKE 1 TABLET BY MOUTH EVERY 8 HOURS NEEDED 09/16/2013 No Stop Date Active omeprazole 20 mg capsule,delayed release RxNorm: 269402 Capsule(s) PO TAKE 1 CAPSULE BY MOUTH TWICE DAILY 09/02/2013 Inactive Lasix 20 mg tablet RxNorm: Tablet(s) PO TAKE 2 TABLETS BY MOUTH EVERY MORNING AND 1 TABLET BY MOUTH AT 3 PM 09/02/2013 04/10/2016 Inactive Diflucan 150 mg tablet RxNorm: 312027 Tablet(s) PO TAKE 1 TABLET BY MOUTH EVERY OTHER DAY FOR 8 DOSES 08/29/20132013 Inactive Effexor XR 37.5 mg capsule,extended release RxNorm: 284486 Capsule(s) PO TAKE 2 CAPSULES BY MOUTH EVERY MORNING AND 1 CAPSULE BY MOUTH EVERY NIGHT AT BEDTIME 08/29/2013 11/03/2013 Inactive diltiazem ER (XR/XT) 240 mg capsule,extended release, controlled RxNorm: 922708 Capsule(s) PO TAKE 1 CAPSULE BY MOUTH EVERY DAY 201312/03/2013 Inactive Xanax 0.5 mg tablet RxNorm: 853697 1 Tablet(s) PO TID PRN 11/2013 No Stop Date Active (Appended: Controlled substance eRx refill - RxReferenceNumber: [id number]| [id number]|1|0|1) colestipol 1 gram tablet RxNorm: 9707936 Tablet(s) PO TAKE 1 TABLET BY MOUTH TWICE DAILY 08/26/2013 11/25/2013 Inactive Victoza 3-Babak 0.6 mg/0.1 mL (18 mg/3 mL) subcutaneous pen injector RxNorm: 215945 1.2 Milligram(s) SQ daily 0.6 x 2 weeks then increase to 1.2mg daily 08/19/2013 12/16/2013 Inactive Synthroid 88 mcg tablet RxNorm: 461746 1 Tablet(s) PO daily 12/09/2013 Inactive Lasix 20 mg tablet RxNorm: Tablet(s) PO TAKE 2 TABLETS BY MOUTH EVERY MORNING AND 2 TABLETS BY MOUTH AT 3 PM 08/12/2013 10/18/2016 Inactive Xanax 0.5 mg tablet RxNorm: 365406 1 Tablet(s) PO TID PRN No Stop Date Active (Appended: Controlled substance eRx refill - RxReferenceNumber: [id number]| [id number]|1|0|1) Lasix 20 mg tablet RxNorm: Tablet(s) PO TAKE 2 TABLETS BY MOUTH EVERY MORNING AND 1 TABLET BY MOUTH AT 3 PM 08/07/2013 08/11/2013 Inactive Voltaren 1 % topical gel RxNorm: 432143 4 Gram(s) TOP QID 08/0111/26/2013 Inactive Zyvox 600 mg tablet RxNorm: 795785 1 Tablet(s) PO BID 201307/27/2013 Inactive please call the office is this is too expensive for the pt Zyvox 600 mg tablet RxNorm: 763044 1 Tablet(s) PO BID 201307/17/2013 Inactive hydrocodone 5 mg-acetaminophen 325 mg tablet RxNorm: 8822953 1 Tablet(s) PO Q6 PRN 07/15/2013 09/26/2013 Inactive Zofran 4 mg tablet RxNorm: 134777 1 Tablet(s) PO Q4-6H 201310/02/2013 Inactive Lasix 20 mg tablet RxNorm: 397248 Tablet(s) PO TAKE 2 TABLETS BY MOUTH EVERY MORNING AND 1 TABLET BY MOUTH AT 3 PM 07/11/2013 10/18/2016 Inactive cyclobenzaprine 10 mg tablet RxNorm: 627195 1 Tablet(s) PO Q8 PRN 06/27/2013 08/25/2013 Inactive gabapentin 600 mg tablet RxNorm: 889905 1.5 Tablet(s) PO TID 01/02/2014 Inactive Lasix 20 mg tablet RxNorm: 600640 Tablet(s) PO TAKE 2 TABLETS BY MOUTH EVERY MORNING AND 1 TABLET BY MOUTH AT 3 PM 06/17/2013 07/10/2013 Inactive hydrocodone 5 mg-acetaminophen 325 mg tablet RxNorm: 907504 1 Tablet(s) PO Q6 PRN 06/10/2013 07/14/2013 Inactive hydrocortisone 2.5 % rectal cream RxNorm: 537193 1 Suppository RTL BID PRN 06/10/2013 06/29/2013 Inactive Flexeril 10 mg tablet RxNorm: 488896 1 Tablet(s) PO Q8 PRN 06/0406/26/2013 Inactive diltiazem ER (XR/XT) 240 mg capsule,extended release, controlled RxNorm: 575218 Capsule(s) PO TAKE 1 CAPSULE BY MOUTH EVERY DAY 201310/26/2017 Inactive omeprazole 20 mg capsule,delayed release RxNorm: 418358 Capsule(s) PO TAKE 1 CAPSULE BY MOUTH TWICE DAILY 05/24/2013 Inactive colestipol 1 gram tablet RxNorm: 2134953 Tablet(s) PO TAKE 1 TABLET BY MOUTH TWICE DAILY 05/23/2013 04/21/2016 Inactive Januvia 100 mg tablet RxNorm: 003786 1 Tablet(s) PO daily 201308/18/2013 Inactive Activella 0.5 mg-0.1 mg tablet RxNorm: 979010 Tablet(s) PO TAKE 1 TABLET BY MOUTH DAILY FOR MENOPAUSAL SYMPTOM 05/17/2013 Inactive Xanax 0.5 mg tablet RxNorm: 997750 1 Tablet(s) PO TID PRN 08/06/2013 Inactive (Appended: Controlled substance [id number]| 479635|1|0|1) Kenalog 40 mg/mL suspension for injection RxNorm: 2482719 Milliliter(s) Inj 05/07/2013 05/07/2013 Inactive levofloxacin 500 mg tablet RxNorm: 800427 1 Tablet(s) PO daily pt to take 500mg on day#1, 3, 5, 7 and 1/2 tablet on days 2, 4, 6, and 8 05/0705/14/2013 Inactive Lyrica 50 mg capsule RxNorm: 471002 1 Capsule(s) PO TID 201206/26/2013 Inactive hydrocodone 5 mg-acetaminophen 500 mg tablet RxNorm: 020379 1 Tablet(s) PO Q6 PRN 04/22/2013 06/09/2013 Inactive Zofran 4 mg tablet RxNorm: 539618 1 Tablet(s) PO Q4-6H 201207/14/2013 Inactive Zofran 4 mg tablet RxNorm: 178541 1 Tablet(s) PO Q6 PRN 04/0404/08/2013 Inactive hydrocodone 5 mg-acetaminophen 500 mg tablet RxNorm: 459414 1 Tablet(s) PO Q6 PRN 03/21/2013 04/21/2013 Inactive Diflucan 150 mg tablet RxNorm: 075284 1 Tablet(s) PO every other day 1 pill po every other day x 8 doses 03/19/201306/26 Inactive potassium chloride ER 10 mEq tablet,extended release RxNorm: 504581 1 Tablet(s) PO QDAY PRN take with lasix 03/07/201302/2014 Inactive potassium chloride ER 10 mEq tablet,extended release RxNorm: 058934 1 Tablet(s) PO QDAY PRN take with lasix 03/04/2013 Inactive fluconazole 150 mg tablet RxNorm: 283458 1 Tablet(s) PO daily 03/01/2013 02/28/2013 Inactive fluconazole 150 mg tablet RxNorm: 089637 1 Tablet(s) PO daily 03/01/2013 03/05/2013 Inactive Combivent 18 mcg-103 mcg/actuation Aerosol Inhaler RxNorm: 896594 2 Puff(s) INH QID 02/12/2013 02/12/2013 Inactive Zofran 4 mg tablet RxNorm: 027467 1 Tablet(s) PO Q6 PRN 02/1104/03/2013 Inactive Lasix 20 mg tablet RxNorm: 099349 1 Tablet(s) PO BID one pill in morning and one pill in afternoon (3pm) 02/04/2013 Inactive Xopenex HFA 45 mcg/actuation Aerosol Inhaler RxNorm: 995699 2 INH QID 01/29/2013 09/21/2015 Inactive Effexor XR 37.5 mg capsule,extended release RxNorm: 708517 2 q am and 1 at hs Capsule(s) PO TAKE 2 CAPSULES BY MOUTH EVERY MORNING AND 1 CAPSULE EVERY NIGHT AT BEDTIME 01/29/2013 02/15/2016 Inactive fluconazole 150 mg tablet RxNorm: 736823 1 Tablet(s) PO daily 01/29/2013 02/02/2013 Inactive hydrocodone 5 mg-acetaminophen 500 mg tablet RxNorm: 971194 1 Tablet(s) PO Q6 PRN 01/29/2013 03/20/2013 Inactive Effexor XR 37.5 mg capsule,extended release RxNorm: 854208 Capsule(s) PO 01/29/2013 08/28/2013 Inactive TAKE 2 CAPSULES BY MOUTH EVERY MORNING AND 1 CAPSULE EVERY NIGHT AT BEDTIME doxycycline hyclate 100 mg tablet RxNorm: 046435 1 Tablet(s) PO BID 01/01/2013 01/10/2013 Inactive doxycycline hyclate 100 mg tablet RxNorm: 204425 1 Tablet(s) PO BID 01/01/2013 12/31/2012 Inactive Synthroid 75 mcg tablet RxNorm: 520659 1 Tablet(s) PO daily 06/29/2013 Inactive Synthroid 75 mcg tablet RxNorm: 367097 1 Tablet(s) PO daily 12/31/2012 Inactive Xanax 0.5 mg tablet RxNorm: 101122 Tablet(s) PO TAKE 1/2 TO 1 TABLET BY MOUTH EVERY 8 HOURS NEEDED FOR ANXIETY 12/27/2012 05/06/2013 Inactive (Appended: Controlled substance [facility]Rx [id number]|1|0|1) Lasix 20 mg tablet RxNorm: 153076 1 Tablet(s) PO daily 201202/03/2013 Inactive Santyl 250 unit/gram Topical Ointment RxNorm: 1813663 1 Application TOP daily 12/20/2012 12/29/2012 Inactive Levaquin 500 mg tablet RxNorm: 235752 1 Tablet(s) PO daily 05/201212/26/2012 Inactive acyclovir 400 mg tablet RxNorm: 246908 1 Tablet(s) PO TID 12/0312/09/2012 Inactive acyclovir 400 mg tablet RxNorm: 034633 1 Tablet(s) PO TID 12/0312/02/2012 Inactive fluconazole 150 mg tablet RxNorm: 618241 1 Tablet(s) PO daily 11/26/2012 11/30/2012 Inactive Effexor XR 37.5 mg capsule,extended release RxNorm: 218439 Capsule(s) PO TAKE 2 CAPSULES BY MOUTH EVERY MORNING AND 1 CAPSULE EVERY NIGHT AT BEDTIME 11/14/2012 01/28/2013 Inactive albuterol sulfate 1.25 mg/3 mL solution for nebulization RxNorm: 160976 3 Milliliter(s) INH TID 10/29/20122012 Inactive 1 box Cartia XT 180 mg capsule,extended release RxNorm: 547586 1 Capsule(s) PO daily TAKE 1 CAPSULE BY MOUTH AT BEDTIME ..TAKE THIS IN ADDITION TO 240 MG IN THE MORNING 10/29/2012 11/26/2013 Inactive acyclovir 800 mg tablet RxNorm: 346295 1 Tablet(s) PO BID 10/2911/04/2012 Inactive Diflucan 150 mg tablet RxNorm: 660922 1 Tablet(s) PO daily 10/14/2012 Inactive TAKE 1 TABLET BY MOUTH EVERY DAY Toprol XL 100 mg tablet,extended release RxNorm: 083598 1 Tablet(s) PO BID 10/11/2012 09/05/2013 Inactive Zithromax Z-Babak 250 mg tablet RxNorm: 379298 Tablet(s) PO UD as directed. 1 refill , please take back to back 10/05/2012 No Stop Date Active Kenalog 40 mg/mL Susp for Injection RxNorm: 9027466 1 Milliliter(s) Inj QID 09/21/2012 05/07/2013 Inactive fluconazole 150 mg tablet RxNorm: 004192 1 Tablet(s) PO every other day x 5 doses 09/12/2012 11/25/2012 Inactive levothyroxine 50 mcg tablet RxNorm: 283101 1 Tablet(s) PO daily 09/06/2012 12/31/2012 Inactive atorvastatin 40 mg tablet RxNorm: 298533 1 Tablet(s) PO daily 09/06/2012 08/31/2013 Inactive TAKE 1 TABLET BY MOUTH DAILY (THIS IS AN INCREASE IN DOSAGE) Xanax 0.5 mg tablet RxNorm: 906742 Tablet(s) PO TAKE 1/2 TO 1 TABLET BY MOUTH EVERY 8 HOURS NEEDED FOR ANXIETY 08/27/2012 12/26/2012 Inactive (Appended: Controlled substance eRx refill - RxReferenceNumber: [id number]|1|0|1) Zofran 4 mg tablet RxNorm: 887910 1 Tablet(s) PO Q6 PRN 08/1302/10/2013 Inactive Cipro 500 mg tablet RxNorm: 068283 1 Tablet(s) PO BID 201208/07/2012 Inactive Cipro 500 mg tablet RxNorm: 963819 1 Tablet(s) PO BID 201208/12/2012 Inactive Flagyl 500 mg tablet RxNorm: 630843 1 Tablet(s) PO TID 201208/12/2012 Inactive cefdinir 300 mg capsule RxNorm: 558264 1 Capsule(s) PO BID 08/201207/29/2012 Inactive nystatin 100,000 unit/mL Oral Susp RxNorm: 497296 6 Unit(s) PO QID 07/06/2012 07/15/2012 Inactive Kenalog 40 mg/mL Susp for Injection RxNorm: 5568165 1 Milliliter(s) Inj 07/06/2012 07/06/2012 Inactive Zithromax 500 mg tablet RxNorm: 2860071 1 Tablet(s) PO daily 07/10/2012 Inactive metformin 850 mg tablet RxNorm: 119585 1/2 Tablet(s) PO TID 09/201208/24/2012 Inactive TAKE 1 TABLET BY MOUTH IN THE MORNING, 1/2 TABLET AT NOON, AND 1 TABLET IN THE EVENING Lyrica 50 mg capsule RxNorm: 629544 1 Capsule(s) PO TID 201206/25/2012 Inactive Diflucan 150 mg tablet RxNorm: 225169 1 Tablet(s) PO daily 05/201206/25/2012 Inactive TAKE 1 TABLET BY MOUTH EVERY DAY Levaquin 500 mg tablet RxNorm: 540145 1 Tablet(s) PO daily 06/19/2012 Inactive Pneumovax 23 25 mcg/0.5 mL Injection RxNorm: 384294 1/2 Milliliter(s) Inj 06/07/2012 06/07/2012 Inactive metformin 850 mg tablet RxNorm: 280206 1/2 Tablet(s) PO BID 06/25/2012 Inactive TAKE 1 TABLET BY MOUTH IN THE MORNING, 1/2 TABLET AT NOON, AND 1 TABLET IN THE EVENING cefdinir 300 mg capsule RxNorm: 641313 1 Capsule(s) PO BID 02/201305/30/2012 Inactive cefdinir 300 mg capsule RxNorm: 384800 1 Capsule(s) PO BID 02/201306/06/2012 Inactive prednisone 10 mg tablets in a dose pack RxNorm: 499445 Tablet(s) PO UD 6-5-4-3-2- 1 05/31/2012 05/06/2013 Inactive Cipro 500 mg tablet RxNorm: 481791 1 Tablet(s) PO BID 201206/03/2012 Inactive Xanax 0.5 mg tablet RxNorm: 316111 Tablet(s) PO TAKE 1/2 TO 1 TABLET BY MOUTH EVERY 8 HOURS NEEDED FOR ANXIETY 05/28/2012 08/27/2012 Inactive (Appended: Controlled substance eRx refill - RxReferenceNumber: [id number]|1|0|1) Cartia XT 180 mg capsule,extended release RxNorm: 518754 Capsule(s) PO TAKE 1 CAPSULE BY MOUTH AT BEDTIME ..TAKE THIS IN ADDITION TO 240 MG IN THE MORNING 05/24/2012 10/28/2012 Inactive Diflucan 150 mg tablet RxNorm: 850253 1 Tablet(s) PO daily 06/201205/26/2012 Inactive TAKE 1 TABLET BY MOUTH EVERY DAY Cartia XT 240 mg capsule,extended release RxNorm: 394206 1 Capsule(s) PO QAM 05/23/2012 09/06/2012 Inactive in addition to 180mg q pm omeprazole 20 mg capsule,delayed release RxNorm: 320725 Capsule(s) PO TAKE 1 CAPSULE BY MOUTH TWICE DAILY 05/21/2012 Inactive diltiazem ER (XR/XT) 240 mg capsule,extended release, controlled RxNorm: 971532 1 Capsule(s) PO daily TAKE ONE CAPSULE BY MOUTH EVERY DAY 05/21/2012 05/30/2013 Inactive Toprol XL 25 mg tablet,extended release RxNorm: 665751 1 Tablet(s) PO QPM take with 50mg (1/2 tab of 100mg) each evening. Continue 100mg in the morning. 05/17/2012 05/27/2012 Inactive Activella 0.5 mg-0.1 mg tablet RxNorm: 4960960 Tablet(s) PO TAKE 1 TABLET BY MOUTH DAILY FOR MENOPAUSAL SYMPTOM 05/09/2012 05/16/2013 Inactive colestipol 1 gram tablet RxNorm: 9706927 Tablet(s) PO TAKE 1 TABLET BY MOUTH TWICE DAILY 05/08/2012 04/21/2016 Inactive Kenalog 40 mg/mL Susp for Injection RxNorm: 9024293 1 Milliliter(s) Inj 05/02/2012 05/02/2012 Inactive Xanax 0.5 mg tablet RxNorm: 361633 Tablet(s) PO 04/16/2012 05/28/2012 Inactive TAKE 1/2 TO 1 TABLET BY MOUTH EVERY 8 HOURS NEEDED FOR ANXIETY (Appended: Controlled substance eRx refill - RxReferenceNumber: [id number]|1|0|1) Diflucan 150 mg tablet RxNorm: 411650 1 Tablet(s) PO daily 05/22/2012 Inactive TAKE 1 TABLET BY MOUTH EVERY DAY Cipro 500 mg tablet RxNorm: 565352 1 Tablet(s) PO BID 201104/19/2012 Inactive Zithromax Z-Babak 250 mg tablet RxNorm: 078520 Tablet(s) PO UD 05/30/2012 Inactive metformin 850 mg tablet RxNorm: 459459 Tablet(s) PO take one pill by mouth in AM, 1/2 at noon, and 1 pill in the evening. 03/16/2012 06/06/2012 Inactive TAKE 1 TABLET BY MOUTH IN THE MORNING, 1/2 TABLET AT NOON, AND 1 TABLET IN THE EVENING Xanax 0.5 mg tablet RxNorm: 061863 Tablet(s) PO 03/05/2012 04/15/2012 Inactive TAKE 1/2 TO 1 TABLET BY MOUTH EVERY 8 HOURS NEEDED FOR ANXIETY (Appended: Controlled substance eRx refill - RxReferenceNumber: [id number]|1|0|1) potassium chloride ER 10 mEq tablet,extended release RxNorm: 569137 1 Tablet(s) PO QDAY PRN take with lasix 03/05/201204/2013 Inactive potassium chloride ER 10 mEq tablet,extended release RxNorm: 442904 1 Tablet(s) PO QDAY PRN take with lasix 02/28/2012 Inactive Lasix 20 mg tablet RxNorm: 641573 Tablet(s) PO QDAY PRN 02/2708/25/2012 Inactive doxycycline hyclate 100 mg capsule RxNorm: 357391 1 Capsule(s) PO BID 02/27/2012 03/04/2012 Inactive Effexor XR 37.5 mg capsule,extended release RxNorm: 813290 Capsule(s) PO 02/26/2012 01/28/2013 Inactive TAKE 2 CAPSULES BY MOUTH EVERY MORNING AND 1 CAPSULE EVERY NIGHT AT BEDTIME Lomotil 2.5 mg-0.025 mg tablet RxNorm: 8008529 Tablet(s) PO 07/201103/05/2012 Inactive 1 after each loose bm limit 4 per day doxycycline hyclate 100 mg capsule RxNorm: 901567 1 Capsule(s) PO BID 02/15/2012 02/21/2012 Inactive Diflucan 150 mg tablet RxNorm: 386459 Tablet(s) PO daily 201102/21/2012 Inactive TAKE 1 TABLET BY MOUTH EVERY DAY colestipol,micronized 1 gram tablet RxNorm: 2624103 Tablet(s) PO 02/06/2012 04/21/2016 Inactive TAKE 1 TABLET BY MOUTH TWICE DAILY Effexor XR 37.5 mg capsule,extended release RxNorm: 632759 Capsule(s) PO 02/06/2012 02/16/2016 Inactive TAKE 2 CAPSULES BY MOUTH EVERY MORNING AND 1 CAPSULE EVERY NIGHT AT BEDTIME potassium chloride ER 10 mEq tablet,extended release RxNorm: 413620 1 Tablet(s) PO QDAY PRN take with lasix 02/01/201212/2011 Inactive Levaquin 500 mg tablet RxNorm: 468255 1 Tablet(s) PO daily 04/201202/07/2012 Inactive Diflucan 150 mg tablet RxNorm: 949605 Tablet(s) PO 01/27/2012 02/14/2012 Inactive TAKE 1 TABLET BY MOUTH EVERY DAY Effexor XR 37.5 mg capsule,extended release RxNorm: 812020 Capsule(s) PO 01/05/2012 02/05/2012 Inactive TAKE 2 CAPSULES BY MOUTH EVERY MORNING , AND 1 CAPSULE BY MOUTH EVERY NIGHT AT BEDTIME Effexor XR 37.5 mg capsule,extended release RxNorm: 550243 Capsule(s) PO 12/29/2011 01/04/2012 Inactive TAKE 2 CAPSULES BY MOUTH EVERY MORNING , AND 1 CAPSULE BY MOUTH EVERY NIGHT AT BEDTIME Diflucan 150 mg tablet RxNorm: 392654 Tablet(s) PO 12/29/2011 04/09/2012 Inactive TAKE 1 TABLET BY MOUTH EVERY DAY Cipro 500 mg tablet RxNorm: 166595 1 Tablet(s) PO BID 201101/07/2012 Inactive Toprol XL 100 mg tablet,extended release RxNorm: 478629 Tablet(s) PO as doctor directed one tab in am and 1/2 at night 11/30/2011 10/10/2012 Inactive Phenergan 25 mg/mL Injection RxNorm: 991526 Milliliter(s) Inj 11/30/2011 11/30/2011 Inactive Toprol XL 100 mg 24 hr Tab RxNorm: 447428 1.5 Tablet(s) PO as doctor directed one tab in am and 1/2 at night 11/17/201102/2012 Inactive Xopenex HFA 45 mcg/actuation Aerosol Inhaler RxNorm: 708393 2 INH QID 11/08/2011 12/01/2012 Inactive Effexor XR 150 mg 24 hr Cap RxNorm: 106702 1 Capsule(s) PO daily 10/24/2011 01/04/2012 Inactive Xanax 0.5 mg tablet RxNorm: 894452 1/2-1 Tablet(s) PO Q8 PRN 10/20/2011 03/05/2012 Inactive levothyroxine 25 mcg tablet RxNorm: 263567 Tablet(s) PO 201109/05/2012 Inactive TAKE 1 TABLET BY MOUTH DAILY Xanax 0.5 mg Tab RxNorm: 672684 1/2-1 Tablet(s) PO Q8 PRN 09/26/2011 10/19/2011 Inactive potassium chloride ER 10 mEq Tab RxNorm: 455548 1 Tablet(s) PO daily 09/20/2011 09/24/2011 Inactive Lasix 20 mg Tab RxNorm : 071331 1 Tablet(s) PO daily 09/20/2011 09/24/2011 Inactive Xanax 0.5 mg Tab RxNorm: 041328 1/2-1 Tablet(s) PO Q8 PRN 09/12/2011 09/25/2011 Inactive Xanax 0.5 mg Tab RxNorm: 144656 1/2-1 Tablet(s) PO Q8 PRN 08/24/2011 09/11/2011 Inactive Lipitor 20 mg tablet RxNorm: 700931 Tablet(s) PO 08/22/2011 09/05/2012 Inactive TAKE 1 TABLET BY MOUTH DAILY (THIS IS AN INCREASE IN DOSAGE) Cipro 500 mg Tab RxNorm: 735044 1 Tablet(s) PO BID 201110/24/2011 Inactive Flagyl 500 mg Tab RxNorm: 177610 1 Tablet(s) PO TID 201110/24/2011 Inactive Diflucan 150 mg Tab RxNorm: 339112 1 Tablet(s) PO daily 201110/24/2011 Inactive Kenalog 40 mg/mL Susp for Injection RxNorm: 9935174 1 Milliliter(s) Inj 08/01/2011 10/24/2011 Inactive FreeStyle Lancets RxNorm: 1 test Miscellaneous TID 201107/08/2014 Inactive dispense quantity sufficient for three times daily testing for diabetes FreeStyle Test Strips RxNorm: 1 Miscellaneous BID 07/21/2011 08/13/2012 Inactive please give lancets alsodx 250.02 Xanax 0.25 mg Tab RxNorm: 825570 1 Tablet(s) PO Q8 PRN 07/06 No Stop Date Active colestipol 1 gram Tab RxNorm: 1251964 Tablet(s) PO 07/04/2011 04/21/2016 Inactive TAKE 1 TABLET BY MOUTH TWICE DAILY DIRECTED colestipol 1 gram tablet RxNorm: 0997686 1 Tablet(s) PO BID 07/03/2011 Inactive Cartia XT 180 mg capsule,extended release RxNorm: 433915 1 Capsule(s) PO QHS 06/30/2011 11/16/2011 Inactive in addition to 240mg q am venlafaxine 37.5 mg Tab RxNorm: 918709 1 Tablet(s) PO BID 06/2406/29/2011 Inactive prednisone 5 mg Tab RxNorm: 488457 Tablet(s) PO UD 2011 10/24/2011 Inactive six day taper #21 Lyrica 50 mg capsule RxNorm: 471260 1 Capsule(s) PO TID 201108/18/2011 Inactive Diflucan 150 mg tablet RxNorm: 507609 1 Tablet(s) PO daily 06/24/2011 Inactive levofloxacin 500 mg Tab RxNorm: 042279 1 Tablet(s) PO daily 08/15/2011 Inactive azithromycin 250 mg Tab RxNorm: 009374 PO 05/23/2011 06/20/2011 Inactive omeprazole 20 mg capsule,delayed release RxNorm: 937814 Capsule(s) PO 05/10/2011 05/20/2012 Inactive TAKE 1 CAPSULE BY MOUTH TWICE DAILY;Patient requests 90 day supply diltiazem ER (XR/XT) 240 mg capsule,extended release, controlled RxNorm: 825194 Capsule(s) PO 04/19/2011 05/21/2012 Inactive TAKE 1 CAPSULE BY MOUTH EVERY MORNING;Patient requests 90 day supply Kenalog 40 mg/mL Susp for Injection RxNorm: 4830206 1 Milliliter(s) Inj 04/18/2011 06/20/2011 Inactive clindamycin 300 mg Cap RxNorm: 657517 1 Capsule(s) PO BID 04/1806/20/2011 Inactive lisinopril-hydrochlorothiazide 20 mg-12.5 mg Tab RxNorm: 672461 2 Tablet(s) PO daily 04/18/2011 10/24/2011 Inactive fluconazole 150 mg Tab RxNorm: 594950 1 Tablet(s) PO daily 07/201006/20/2011 Inactive Activella 0.5 mg-0.1 mg tablet RxNorm: 9399555 Tablet(s) PO 05/201005/08/2012 Inactive TAKE 1 TABLET BY MOUTH DAILY FOR MENOPAUSAL SYMPTOM diltiazem ER (XR/XT) 240 mg Continuous Release Cap RxNorm: 081013 1 Capsule(s) PO daily 03/17/2011 03/16/2011 Inactive diltiazem ER (XR/XT) 240 mg Continuous Release Cap RxNorm: 815443 Capsule(s) PO 03/17/2011 06/20/2011 Inactive TAKE 1 CAPSULE BY MOUTH EVERY MORNING metformin 850 mg tablet RxNorm: 044472 1 Tablet(s) PO as doctor directed take one pill by mouth in AM, 1/2 at noon, and 1 pill in the evening. 01/21/2011 04/20/2011 Inactive Xopenex 1.25 mg/3 mL solution for nebulization RxNorm: 009111 3 Milliliter(s) INH Q6 PRN No Start Date Active Novolog Flexpen U-100 Insulin aspart 100 unit/mL subcutaneous RxNorm: 8252663 10 units with meals plus SSI in [...] 301-325 Lomotil 2.5 mg-0.025 mg tablet RxNorm: 3071947 Tablet(s) PO No Start Date 02/21/2012 Inactive 1 after each loose bm limit 4 per day Novolog Flexpen U-100 Insulin aspart 100 unit/mL subcutaneous RxNorm: 2678538 10 Unit(s) SQ AC No Start Date 10/26 Inactive with sliding scale-Dr Yanna Judd FlexTouch U-100 100 unit/mL (3 mL) subcutaneous insulin pen RxNorm: 2167588 40 Unit(s) SQ daily No Start Date Inactive gabapentin 600 mg tablet RxNorm: 692346 1 Tablet(s) PO TID No Start Date 06/26/2013 Inactive Effexor XR 37.5 mg capsule,extended release RxNorm: 246259 1 Capsule(s) PO BID No Start Date 10/23/2011 Inactive Levemir FlexTouch 100 unit/mL (3 mL) subcutaneous insulin pen RxNorm: 707844 50 Unit(s) SQ BID No Start Date 04/24/2017 Inactive Combivent Respimat 20 mcg-100 mcg/actuation solution for inhalation RxNorm: 6073814 1 INH QID No Start Date 05/11/2014 Inactive Xanax 0.5 mg Tab RxNorm: 881011 1/2-1 Tablet(s) PO Q8 PRN No Start Date 08/23/2011 Inactive Xopenex HFA 45 mcg/actuation Aerosol Inhaler RxNorm: 911666 2 INH QID No Start Date 11/07/2011 Inactive promethazine 25 mg tablet RxNorm: 772875 1 Tablet(s) PO Q8 as needed No Start Date 08/12/2015 Inactive colestipol 1 gram Tab RxNorm: 5135611 1 Tablet(s) PO BID No Start Date 07/03/2011 Inactive Cartia XT 240 mg capsule,extended release RxNorm: 381848 1 Capsule(s) PO QAM No Start Date 05/22/2012 Inactive in addition to 180mg q pm Lipitor 20 mg Tab RxNorm: 560138 1 Tablet(s) PO daily No Start Date 08/21/2011 Inactive FreeStyle Test Strips RxNorm: 1 Miscellaneous BID No Start Date 07/20/2011 Inactive Toujeo SoloStar U-300 Insulin 300 unit/mL (1.5 mL) subcutaneous pen RxNorm: 3767922 40 Unit(s) SQ BID No Start Date 10/26/2017 Inactive Diflucan 150 mg tablet RxNorm: 174231 1 Tablet(s) PO daily 1 pill po every other day x 8 doses No Start Date 03/18/2013 Inactive hydrocodone 5 mg-acetaminophen 500 mg tablet RxNorm: 689074 1 Tablet(s) PO Q6 PRN No Start Date 01/28/2013 Inactive Lasix 20 mg tablet RxNorm: 537735 Tablet(s) PO QDAY PRN No Start Date 02/27/2012 Inactive Promethazine VC 6.25 mg-5 mg/5 mL Syrup RxNorm: 4656288 1-2 PO Q6 PRN No Start Date 10/07/2013 Inactive promethazine 25 mg tablet RxNorm: 645150 1 Tablet(s) PO Q6 PRN No Start Date 02/09/2017 Inactive digoxin 125 mcg tablet RxNorm: 804950 1 Tablet(s) PO daily No Start Date 06/20/2017 Inactive Xanax 0.25 mg Tab RxNorm: 608833 1 Tablet(s) PO Q8 PRN No Start Date 07/05/2011 Inactive Diflucan 150 mg tablet RxNorm: 325998 1 Tablet(s) PO every other day x 4 doses No Start Date 04/09/2014 Inactive Carafate 100 mg/mL Oral Susp RxNorm: 543634 2 Teaspoon(s) PO daily No Start Date 10/24/2011 Inactive prednisone 5 mg Tab RxNorm: 245236 Tablet(s) PO UD No Start Date 06/22/2011 Inactive six day taper #21 Tessalon Perles 100 mg capsule RxNorm: 340629 2 Capsule(s) PO TID as needed No Start Date 05/16/2017 Inactive Bactroban 2 % topical ointment RxNorm: 021467 1 Application TOP BID No Start Date 09/26/2013 Inactive Phenergan 25 mg tablet RxNorm: 666595 1 Tablet(s) PO Q8 as needed nausea No Start Date 06/28/2015 Inactive flecainide 50 mg tablet RxNorm: 419370 1 Tablet(s) PO BID No Start Date 02/01/2016 Inactive Activella 0.5 mg-0.1 mg Tab RxNorm: 3698865 1 Tablet(s) PO daily No Start Date 03/21/2011 Inactive hydrocodone 10 mg-acetaminophen 325 mg tablet RxNorm: 811546 1 Tablet(s) PO Q6 as needed No Start Date 02/04/2016 Inactive lisinopril 20 mg Tab RxNorm: 557078 1 Tablet(s) PO daily No Start Date 06/20/2011 Inactive prednisone 10 mg tablets in a dose pack RxNorm: 032698 Tablet(s) PO UD 6-5-4-3-2- 1 No Start Date 05/30/2012 Inactive hydrocodone 7.5 mg-acetaminophen 325 mg tablet RxNorm: 155218 1 Tablet(s) PO Q6 PRN No Start Date 10/06/2013 Inactive hyoscyamine 0.125 mg sublingual tablet RxNorm: 8110335 1 Tablet(s) SL TID as needed No Start Date 05/16/2017 Inactive Cartia XT 180 mg 24 hr Cap RxNorm: 619131 1 Capsule(s) PO QHS No Start Date 06/29/2011 Inactive in addition to 240mg q am Zofran 4 mg tablet RxNorm: 110021 1 Tablet(s) PO Q6 PRN No Start Date 08/12/2012 Inactive omeprazole 20 mg Cap, Delayed Release RxNorm: 387837 1 Capsule(s) PO BID No Start Date 05/09/2011 Inactive venlafaxine 37.5 mg Tab RxNorm: 075604 1 Tablet(s) PO BID No Start Date 10/24/2011 Inactive Vesicare 10 mg tablet RxNorm: 484722 1 Tablet(s) PO daily No Start Date 09/28/2015 Inactive levothyroxine 25 mcg Tab RxNorm: 556584 1 Tablet(s) PO daily No Start Date 10/18/2011 Inactive Zithromax Z-Babak 250 mg tablet RxNorm: 453173 Tablet(s) PO UD No Start Date 04/01/2012 Inactive Januvia 100 mg tablet RxNorm: 685914 1 Tablet(s) PO daily No Start Date 05/22/2013 Inactive Lantus Solostar 100 unit/mL (3 mL) subcutaneous insulin pen RxNorm: 950030 Unit( s) SQ No Start Date 04/17/2017 Inactive 10 units q am and 50units at night fluconazole 150 mg tablet RxNorm: 932516 1 Tablet(s) PO every other day x 5 doses No Start Date 09/11/2012 Inactive Toprol XL 25 mg 24 hr Tab RxNorm: 821737 1 Tablet(s) PO daily No Start Date 11/16/2011 Inactive Medication Administered Medication Codes Instructions Start Date Status Kenalog 40 mg/mL suspension for injection RxNorm: 3780529 Milliliter 06/26/2015 No longer Active Kenalog 40 mg/mL suspension for injection RxNorm: 3634682 Milliliter 05/07/2013 No longer Active Kenalog 40 mg/mL Susp for Injection RxNorm: 2423857 1Milliliter 07/06/2012 No longer Active Pneumovax 23 25 mcg/0.5 mL Injection RxNorm: 130196 1/2Milliliter 06/07/2012 No longer Active Kenalog 40 mg/mL Susp for Injection RxNorm: 5480334 1Milliliter 05/02/2012 No longer Active Phenergan 25 mg/mL Injection RxNorm: 531514 Milliliter 11/30/2011 No longer Active Immunizations Vaccine [...] 74.4 % 02/20/2018 Cbc With Differential Ord2 Lymph% 18.7 % 02/20/2018 Cbc With Differential Ord2 MCV 87.3 fl 02/20/2018 Cbc With Differential Ord2 [place]% 5.7 % 02/20/2018 Cbc With Differential Ord2 MCH 26.2 pg 02/20/2018 Cbc With Differential Ord2 Eos% 1.0 % 02/20/2018 Cbc With Differential Ord2 MCHC 30.1 pg 02/20/2018 Cbc With Differential Ord2 PLT 341 K/ul 02/20/2018 Cbc With Differential Ord2 Baso% 0.2 % 02/20/2018 Cbc With Differential Ord2 Neut ABS# 6.41 K/ul 02/20/2018 Cbc With Differential Ord2 RDW 16.7 % 02/20/2018 Cbc With Differential Ord2 Lymph ABS# 1.61 K/ul 02/20/2018 Cbc With Differential Ord2 [place] ABS# 0.5 K/ul 02/20/2018 Cbc With Differential Ord2 Eos ABS# 0.1 K/ul 02/20/2018 Cbc With Differential Ord2 Baso ABS# 0.0 K/ul 02/20/2018 Comp Metabolic Hli933 NA 134 mEq/L 02/20/2018 Comp Metabolic Dai801 K 3.9 mEq/L 02/20/2018 Comp Metabolic Exg139 CL 90 mEq/L 02/20/2018 Comp Metabolic Zvt034 CO2 32.0 mEq/L 02/20/2018 Comp Metabolic Sxo619 ANION GAP 16 02/20/2018 Comp Metabolic Hio879 GLUCOSE 287 mg/dL 02/20/2018 Comp Metabolic Vzr810 Creat 0.8 mg/dL 02/20/2018 Comp Metabolic Pqw553 eGFR 72 ml/min/1.73m2 02/20/2018 Comp Metabolic Bze314 BUN 13 mg/dL 02/20/2018 Comp Metabolic Hvq069 B/C Ratio 15.5 Ratio 02/20/2018 Comp Metabolic Svs698 CALCIUM 9.0 mg/dL 02/20/2018 Comp Metabolic Oru084 ALK PHOS 120 U/L 02/20/2018 Comp Metabolic Nji010 AST(SGOT) 21 U/L 02/20/2018 Comp Metabolic Zxc614 ALT(SGPT) 17 U/L 02/20/2018 Comp Metabolic Ttx604 BILI T 0.4 mg/dL 02/20/2018 Comp Metabolic Bxf225 ALBUMIN 3.8 g/dL 02/20/2018 Comp Metabolic Isg412 TPRO 6.9 g/dL 02/20/2018 Comp Metabolic Dxi441 GLOB 3.1 g/dL 02/20/2018 Comp Metabolic Nhc014 A/G Ratio 1.3 Ratio 02/20/2018 Comp Metabolic Twt235 Osmo 279 mOsmo 02/20/2018 Vitamin D 25 Oh [id number] VITAMIN D, 25 HYDROXY 26.48 ng/mL Digoxin Ord9 DIGOXIN 0.7 NG/ML 02/20/2018 Culture Urine [id number] URINE CULTURE SEE NOTES 12/01/2017 Urine Culture Ucult Complete >100,000 col/ml aerobic growth sent to ref lab 11/29/2017 Comp Metabolic Dwn682 NA 135 mEq/L 08/21/2017 Comp Metabolic Ece845 K 4.6 mEq/L 08/21/2017 Comp Metabolic Hkz694 CL 92 mEq/L 08/21/2017 Comp Metabolic Abz887 CO2 32.0 mEq/L 08/21/2017 Comp Metabolic Erz443 ANION GAP 16 08/21/2017 Comp Metabolic Hwk015 GLUCOSE 298 mg/dL 08/21/2017 Comp Metabolic Cex967 Creat 1.1 mg/dL 08/21/2017 Comp Metabolic Pph059 eGFR 54 ml/min/1.73m2 08/21/2017 Comp Metabolic Pcp118 BUN 22 mg/dL 08/21/2017 Comp Metabolic Cmf753 B/C Ratio 20.6 Ratio 08/21/2017 Comp Metabolic Kly869 CALCIUM 9.3 mg/dL 08/21/2017 Comp Metabolic Dgb973 ALK PHOS 145 U/L 08/21/2017 Comp Metabolic Tee231 AST(SGOT) 31 U/L 08/21/2017 Comp Metabolic Rul480 ALT(SGPT) 19 U/L 08/21/2017 Comp Metabolic Iuo791 BILI T 0.3 mg/dL 08/21/2017 Comp Metabolic Xnj934 ALBUMIN 3.8 g/dL 08/21/2017 Comp Metabolic Dtf177 TPRO 7.1 g/dL 08/21/2017 Comp Metabolic Vaa442 GLOB 3.3 g/dL 08/21/2017 Comp Metabolic Ppr934 A/G Ratio 1.2 Ratio 08/21/2017 Comp Metabolic Rme349 Osmo 285 mOsmo 08/21/2017 Cbc With Differential [...] 27.9 pg 08/18/2017 Cbc With Differential Ord2 [place]% 6.9 % 08/18/2017 Cbc With Differential Ord2 [...] 2.05 K/ul 08/18/2017 Cbc With Differential Ord2 [place] ABS# 0.7 K/ul 08/18/2017 Cbc With Differential Ord2 Eos ABS# 0.3 K/ul 08/18/2017 Cbc With Differential Ord2 Baso ABS# 0.0 K/ul 08/18/2017 %Hba1C Kvu644 % HbA1c 63325-8 11.5 % 06/13/2017 %Hba1C Zrz129 Gluc Ave 283 mg/dL 06/13/2017 Cbc With [...] 20.0 % 03/27/2017 Cbc With Differential Ord2 [place]% 7.2 % 03/27/2017 Cbc With Differential Ord2 [...] 2.11 K/ul 03/27/2017 Cbc With Differential Ord2 [place] ABS# 0.8 K/ul 03/27/2017 Cbc With Differential Ord2 Eos ABS# 0.2 K/ul 03/27/2017 Cbc With Differential Ord2 Baso ABS# 0.0 K/ul 03/27/2017 Digoxin Ord9 DIGOXIN 0.5 NG/ML 03/27/2017 Comp Metabolic Cfi668 NA 136 mEq/L 03/27/2017 Comp Metabolic Xve408 K 4.1 mEq/L 03/27/2017 Comp Metabolic Ovs708 CL 90 mEq/L 03/27/2017 Comp Metabolic Mfx857 CO2 34.0 mEq/L 03/27/2017 Comp Metabolic Ssn453 ANION GAP 16 03/27/2017 Comp Metabolic Lll819 GLUCOSE 325 mg/dL 03/27/2017 Comp Metabolic Kav359 Creat 1.0 mg/dL 03/27/2017 Comp Metabolic Nif246 eGFR 62 ml/min/1.73m2 03/27/2017 Comp Metabolic Hnv701 BUN 15 mg/dL 03/27/2017 Comp Metabolic Uye357 B/C Ratio 15.8 Ratio 03/27/2017 Comp Metabolic Gcf193 CALCIUM 9.5 mg/dL 03/27/2017 Comp Metabolic Tgj999 ALK PHOS 159 U/L 03/27/2017 Comp Metabolic Xpj035 AST(SGOT) 57 U/L 03/27/2017 Comp Metabolic Wcl683 ALT(SGPT) 32 U/L 03/27/2017 Comp Metabolic Xme174 BILI T 0.4 mg/dL 03/27/2017 Comp Metabolic Ckv810 ALBUMIN 4.3 g/dL 03/27/2017 Comp Metabolic Wtu949 TPRO 7.3 g/dL 03/27/2017 Comp Metabolic Vfc813 GLOB 3.0 g/dL 03/27/2017 Comp Metabolic Zom398 A/G Ratio 1.4 Ratio 03/27/2017 Comp Metabolic Sbq490 Osmo 285 mOsmo 03/27/2017 Magnesium Ord90 Mag 2.4 mg/dL 02/27/2017 Comp Metabolic Qmg206 NA 138 mEq/L 02/27/2017 Comp Metabolic Bwf200 K 4.2 mEq/L 02/27/2017 Comp Metabolic Dag438 CL 91 mEq/L 02/27/2017 Comp Metabolic Iop527 CO2 36.0 mEq/L 02/27/2017 Comp Metabolic Ifj907 ANION GAP 15 02/27/2017 Comp Metabolic Ekk496 GLUCOSE 297 mg/dL 02/27/2017 Comp Metabolic Ymu132 Creat 0.9 mg/dL 02/27/2017 Comp Metabolic Wbp842 eGFR 71 ml/min/1.73m2 02/27/2017 Comp Metabolic Iuq686 BUN 12 mg/dL 02/27/2017 Comp Metabolic Edl843 B/C Ratio 14.1 Ratio 02/27/2017 Comp Metabolic Kzi422 CALCIUM 9.0 mg/dL 02/27/2017 Comp Metabolic Oat931 ALK PHOS 146 U/L 02/27/2017 Comp Metabolic Xmo545 AST(SGOT) 28 U/L 02/27/2017 Comp Metabolic Fwv685 ALT(SGPT) 12 U/L 02/27/2017 Comp Metabolic Zdl762 BILI T 0.3 mg/dL 02/27/2017 Comp Metabolic Hla318 ALBUMIN 3.8 g/dL 02/27/2017 Comp Metabolic Cwj916 TPRO 6.6 g/dL 02/27/2017 Comp Metabolic Hed843 GLOB 2.8 g/dL 02/27/2017 Comp Metabolic Ysr880 A/G Ratio 1.3 Ratio 02/27/2017 Comp Metabolic Xll128 Osmo 286 mOsmo 02/27/2017 Digoxin Ord9 DIGOXIN <0.2 NG/ML 02/14/2017 Comp Metabolic Jvl599 NA 138 mEq/L 02/14/2017 Comp Metabolic Euu038 K 3.5 mEq/L 02/14/2017 Comp Metabolic Knr610 CL 95 mEq/L 02/14/2017 Comp Metabolic Sdo828 CO2 29.0 mEq/L 02/14/2017 Comp Metabolic Lbj180 ANION GAP 18 02/14/2017 Comp Metabolic Nqa655 GLUCOSE 254 mg/dL 02/14/2017 Comp Metabolic Shb597 Creat 1.0 mg/dL 02/14/2017 Comp Metabolic Iip345 eGFR 62 ml/min/1.73m2 02/14/2017 Comp Metabolic Jji883 BUN 14 mg/dL 02/14/2017 Comp Metabolic Cqg981 B/C Ratio 14.6 Ratio 02/14/2017 Comp Metabolic Vmw544 CALCIUM 8.6 mg/dL 02/14/2017 Comp Metabolic Fsp277 ALK PHOS 155 U/L 02/14/2017 Comp Metabolic Kbi851 AST(SGOT) 42 U/L 02/14/2017 Comp Metabolic Zgp466 ALT(SGPT) 28 U/L 02/14/2017 Comp Metabolic Ccj401 BILI T 0.3 mg/dL 02/14/2017 Comp Metabolic Bls421 ALBUMIN 3.6 g/dL 02/14/2017 Comp Metabolic Lbo838 TPRO 6.2 g/dL 02/14/2017 Comp Metabolic Zak377 GLOB 2.6 g/dL 02/14/2017 Comp Metabolic Wjz076 A/G Ratio 1.4 Ratio 02/14/2017 Comp Metabolic Hym938 Osmo 285 mOsmo 02/14/2017 Vitamin D 25 Oh Rgc0463 VITAMIN D, 25 HYDROXY 8.99 ng/mL Tsh [...] 28.0 pg 01/16/2017 Cbc With Differential Ord2 [place]% 7.3 % 01/16/2017 Cbc With Differential Ord2 [...] 1.42 K/ul 01/16/2017 Cbc With Differential Ord2 [place] ABS# 0.6 K/ul 01/16/2017 Cbc With Differential Ord2 Eos ABS# 0.1 K/ul 01/16/2017 Cbc With Differential Ord2 Baso ABS# 0.0 K/ul 01/16/2017 Sed Rate Ord21 ESR 33 mm/hr 01/16/2017 C-Reactive Protein Qnt Crqnt CRP 3.3 mg/dl 01/16/2017 Free T4 Bse330 FREE T4 0.81 ng/dL 01/16/2017 %Hba1C Lhr800 % HbA1c 48645-2 12.4 % 01/16/2017 %Hba1C Dih243 Gluc Ave 309 mg/dL 01/16/2017 Comp Metabolic Uyr971 NA 134 mEq/L 01/16/2017 Comp Metabolic Xpx098 K 4.0 mEq/L 01/16/2017 Comp Metabolic Xcs188 CL 89 mEq/L 01/16/2017 Comp Metabolic Yee499 CO2 30.0 mEq/L 01/16/2017 Comp Metabolic Ety213 ANION GAP 19 01/16/2017 Comp Metabolic Lrh959 GLUCOSE 496 Result Verified By Repeat Analysis mg/dL 01/16/2017 Comp Metabolic Gyu442 Creat 0.8 mg/dL 01/16/2017 Comp Metabolic Puj348 eGFR 73 ml/min/1.73m2 01/16/2017 Comp Metabolic Pia506 BUN 13 mg/dL 01/16/2017 Comp Metabolic Btp713 B/C Ratio 15.7 Ratio 01/16/2017 Comp Metabolic Htl688 CALCIUM 8.8 mg/dL 01/16/2017 Comp Metabolic Xpq173 ALK PHOS 171 U/L 01/16/2017 Comp Metabolic Qbk003 AST(SGOT) 54 U/L 01/16/2017 Comp Metabolic Cjo991 ALT(SGPT) 32 U/L 01/16/2017 Comp Metabolic Mbg712 BILI T 0.3 mg/dL 01/16/2017 Comp Metabolic Vrm534 ALBUMIN 3.9 g/dL 01/16/2017 Comp Metabolic Rcn561 TPRO 6.5 g/dL 01/16/2017 Comp Metabolic Frq174 GLOB 2.6 g/dL 01/16/2017 Comp Metabolic Vbh304 A/G Ratio 1.5 Ratio 01/16/2017 Comp Metabolic Uvc010 Osmo 290 mOsmo 01/16/2017 Manual Differential Ord52 D-Neutr 62 % 09/14/2016 Manual Differential Ord52 D-[place] 1 % 09/14/2016 Manual Differential Ord52 D-Lymph 34 % 09/14/2016 Manual Differential Ord52 D-Eos 2 % 09/14/2016 Manual Differential Ord52 D-[place] 1 % 09/14/2016 Comp Metabolic Ozz569 NA 135 mEq/L 09/14/2016 Comp Metabolic Usw344 K 5.2 mEq/L 09/14/2016 Comp Metabolic Amo319 CL 93 mEq/L 09/14/2016 Comp Metabolic Bpu462 CO2 26.0 mEq/L 09/14/2016 Comp Metabolic Rxp298 ANION GAP 21 09/14/2016 Comp Metabolic Rno880 GLUCOSE 326 mg/dL 09/14/2016 Comp Metabolic Fam892 Creat 1.0 mg/dL 09/14/2016 Comp Metabolic Uxz986 eGFR 57 ml/min/1.73m2 09/14/2016 Comp Metabolic Ieq008 BUN 16 mg/dL 09/14/2016 Comp Metabolic Nax388 B/C Ratio 15.5 Ratio 09/14/2016 Comp Metabolic Mwp752 CALCIUM 9.2 mg/dL 09/14/2016 Comp Metabolic Ndb187 ALK PHOS 160 U/L 09/14/2016 Comp Metabolic Btv763 AST(SGOT) 49 U/L 09/14/2016 Comp Metabolic Los706 ALT(SGPT) 32 U/L 09/14/2016 Comp Metabolic Nhc448 BILI T 0.4 mg/dL 09/14/2016 Comp Metabolic Igp362 ALBUMIN 4.0 g/dL 09/14/2016 Comp Metabolic Tjr927 TPRO 7.3 g/dL 09/14/2016 Comp Metabolic Ynr346 GLOB 3.3 g/dL 09/14/2016 Comp Metabolic Uba718 A/G Ratio 1.2 Ratio 09/14/2016 Comp Metabolic Dbp685 Osmo 284 mOsmo 09/14/2016 Cbc With Differential Ord2 WBC 10.58 K/ul 09/14/2016 Cbc With Differential Ord2 RBC 4.75 M/ul 09/14/2016 Cbc With Differential Ord2 HGB 13.4 g/dl 09/14/2016 Cbc With Differential Ord2 Neut% 69.6 % 09/14/2016 Cbc With Differential Ord2 HCT 41.3 % 09/14/2016 Cbc With Differential Ord2 Lymph% 19.8 % 09/14/2016 Cbc With Differential Ord2 MCV 86.9 fl 09/14/2016 Cbc With Differential Ord2 [place]% 6.2 % 09/14/2016 Cbc With Differential Ord2 [...] 2.09 K/ul 09/14/2016 Cbc With Differential Ord2 [place] ABS# 0.7 K/ul 09/14/2016 Cbc With Differential Ord2 Eos ABS# 0.2 K/ul 09/14/2016 Cbc With Differential Ord2 Baso ABS# 0.3 K/ul 09/14/2016 %Hba1C Ugk545 % HbA1c 62276-1 10.7 % 09/14/2016 %Hba1C Jyd520 Gluc Ave 260 mg/dL 09/14/2016 Comp Metabolic Fii257 NA 134 mEq/L 08/10/2016 Comp Metabolic Yci497 K 5.0 mEq/L 08/10/2016 Comp Metabolic Evd115 CL 91 mEq/L 08/10/2016 Comp Metabolic Qdw909 CO2 29.0 mEq/L 08/10/2016 Comp Metabolic Ipl907 ANION GAP 19 08/10/2016 Comp Metabolic Hjy786 GLUCOSE 291 mg/dL 08/10/2016 Comp Metabolic Ney493 Creat 0.9 mg/dL 08/10/2016 Comp Metabolic Fjf283 eGFR 68 ml/min/1.73m2 08/10/2016 Comp Metabolic Ggy622 BUN 20 mg/dL 08/10/2016 Comp Metabolic Pie618 B/C Ratio 22.7 Ratio 08/10/2016 Comp Metabolic Kkb342 CALCIUM 9.7 mg/dL 08/10/2016 Comp Metabolic Bga393 ALK PHOS 144 U/L 08/10/2016 Comp Metabolic Fym083 AST(SGOT) 62 U/L 08/10/2016 Comp Metabolic Xxm465 ALT(SGPT) 37 U/L 08/10/2016 Comp Metabolic Hvf413 BILI T 0.3 mg/dL 08/10/2016 Comp Metabolic Rdp359 ALBUMIN 4.3 g/dL 08/10/2016 Comp Metabolic Qgg406 TPRO 7.3 g/dL 08/10/2016 Comp Metabolic Ndi976 GLOB 3.0 g/dL 08/10/2016 Comp Metabolic Due843 A/G Ratio 1.5 Ratio 08/10/2016 Comp Metabolic Xne951 Osmo 282 mOsmo 08/10/2016 Free T4 Wkg563 FREE T4 0.89 ng/dL 08/09/2016 Tsh Ord6 [...] 17.7 % 08/09/2016 Cbc With Differential Ord2 [place]% 5.4 % 08/09/2016 Cbc With Differential Ord2 MCH 27.1 pg 08/09/2016 Cbc With Differential Ord2 Eos% 0.9 % 08/09/2016 Cbc With Differential Ord2 MCHC 31.4 pg 08/09/2016 Cbc With Differential Ord2 Baso% 0.2 % 08/09/2016 Cbc With Differential Ord2 PLT 493 K/ul 08/09/2016 Cbc With Differential Ord2 RDW 18.7 % 08/09/2016 Cbc With Differential Ord2 Neut ABS# 10.52 K/ul 08/09/2016 Cbc With Differential Ord2 Lymph ABS# 2.46 K/ul 08/09/2016 Cbc With Differential Ord2 [place] ABS# 0.8 K/ul 08/09/2016 Cbc With Differential [...] 38.7 % 04/20/2016 Cbc With Differential Ord2 Lymph% 26.3 % 04/20/2016 Cbc With Differential Ord2 MCV 87.4 fl 04/20/2016 Cbc With Differential Ord2 MCH 27.3 pg 04/20/2016 Cbc With Differential Ord2 [place]% 6.3 % 04/20/2016 Cbc With Differential Ord2 [...] 2.63 K/ul 04/20/2016 Cbc With Differential Ord2 [place] ABS# 0.6 K/ul 04/20/2016 Cbc With Differential Ord2 Eos ABS# 0.2 K/ul 04/20/2016 Cbc With Differential Ord2 Baso ABS# 0.0 K/ul 04/20/2016 Comp Metabolic Ufv452 NA 133 mEq/L 04/11/2016 Comp Metabolic Aoo482 K 4.1 mEq/L 04/11/2016 Comp Metabolic Nzb612 CL 92 mEq/L 04/11/2016 Comp Metabolic Bke202 CO2 30.0 mEq/L 04/11/2016 Comp Metabolic Jze293 ANION GAP 15 04/11/2016 Comp Metabolic Ifh836 GLUCOSE 414 mg/dL 04/11/2016 Comp Metabolic Qym944 Creat 0.9 mg/dL 04/11/2016 Comp Metabolic Hsh114 eGFR 65 ml/min/1.73m2 04/11/2016 Comp Metabolic Lyj985 BUN 22 mg/dL 04/11/2016 Comp Metabolic Fnl137 B/C Ratio 23.9 Ratio 04/11/2016 Comp Metabolic Ulg965 CALCIUM 9.2 mg/dL 04/11/2016 Comp Metabolic Btf323 ALK PHOS 145 U/L 04/11/2016 Comp Metabolic Wkm487 AST(SGOT) 22 U/L 04/11/2016 Comp Metabolic Plj852 ALT(SGPT) 21 U/L 04/11/2016 Comp Metabolic Osc547 BILI T 0.3 mg/dL 04/11/2016 Comp Metabolic Ahb771 ALBUMIN 3.9 g/dL 04/11/2016 Comp Metabolic Lla999 TPRO 6.8 g/dL 04/11/2016 Comp Metabolic Eqd300 GLOB 3.0 g/dL 04/11/2016 Comp Metabolic Uzo088 A/G Ratio 1.3 Ratio 04/11/2016 Comp Metabolic Yjr170 Osmo 287 mOsmo 04/11/2016 Cbc With Differential [...] 21.9 % 04/11/2016 Cbc With Differential Ord2 [place]% 6.9 % 04/11/2016 Cbc With Differential Ord2 [...] 2.09 K/ul 04/11/2016 Cbc With Differential Ord2 [place] ABS# 0.7 K/ul 04/11/2016 Cbc With Differential Ord2 Eos ABS# 0.2 K/ul 04/11/2016 Cbc With Differential Ord2 Baso ABS# 0.0 K/ul 04/11/2016 Comp Metabolic Vrj731 NA 136 mEq/L 02/26/2016 Comp Metabolic Gsz858 K 3.9 mEq/L 02/26/2016 Comp Metabolic Cgu449 CL 95 mEq/L 02/26/2016 Comp Metabolic Cyg591 CO2 29.0 mEq/L 02/26/2016 Comp Metabolic Mco890 ANION GAP 16 02/26/2016 Comp Metabolic Txz804 GLUCOSE 277 mg/dL 02/26/2016 Comp Metabolic Lad930 Creat 0.7 mg/dL 02/26/2016 Comp Metabolic Igd442 eGFR 88 ml/min/1.73m2 02/26/2016 Comp Metabolic Pnm404 BUN 11 mg/dL 02/26/2016 Comp Metabolic Qku304 B/C Ratio 15.5 Ratio 02/26/2016 Comp Metabolic Uta889 CALCIUM 8.8 mg/dL 02/26/2016 Comp Metabolic Dwb775 ALK PHOS 119 U/L 02/26/2016 Comp Metabolic Gep483 AST(SGOT) 25 U/L 02/26/2016 Comp Metabolic Rdm166 ALT(SGPT) 20 U/L 02/26/2016 Comp Metabolic Vvj978 BILI T 0.3 mg/dL 02/26/2016 Comp Metabolic Zee890 ALBUMIN 3.8 g/dL 02/26/2016 Comp Metabolic Lrn893 TPRO 6.6 g/dL 02/26/2016 Comp Metabolic Lcg862 GLOB 2.8 g/dL 02/26/2016 Comp Metabolic Vqb230 A/G Ratio 1.3 Ratio 02/26/2016 Comp Metabolic Dpx081 Osmo 281 mOsmo 02/26/2016 Cbc With Differential [...] 94.6 fl 02/26/2016 Cbc With Differential Ord2 [place]% 6.4 % 02/26/2016 Cbc With Differential Ord2 MCH 29.6 pg 02/26/2016 Cbc With Differential Ord2 Eos% 1.4 % 02/26/2016 Cbc With Differential Ord2 MCHC 31.3 pg 02/26/2016 Cbc With Differential Ord2 PLT 371 K/ul 02/26/2016 Cbc With Differential Ord2 Baso% 0.4 % 02/26/2016 Cbc With Differential Ord2 RDW 15.1 % 02/26/2016 Cbc With Differential Ord2 Neut ABS# 8.63 K/ul 02/26/2016 Cbc With Differential Ord2 Lymph ABS# 2.78 K/ul 02/26/2016 Cbc With Differential Ord2 [place] ABS# 0.8 K/ul 02/26/2016 Cbc With Differential Ord2 Eos ABS# 0.2 K/ul 02/26/2016 Cbc With Differential Ord2 Baso ABS# 0.1 K/ul 02/26/2016 %Hba1C Yec217 % HbA1c 50450-6 9.6 % 02/26/2016 %Hba1C Seg484 Gluc Ave 229 mg/dL 02/26/2016 Comp Metabolic Ujh993 NA 138 mEq/L 11/10/2015 Comp Metabolic Ppl145 K 4.5 mEq/L 11/10/2015 Comp Metabolic Azm855 CL 99 mEq/L 11/10/2015 Comp Metabolic Djx052 CO2 34.0 mEq/L 11/10/2015 Comp Metabolic Uht755 ANION GAP 10 11/10/2015 Comp Metabolic Hrl987 GLUCOSE 167 mg/dL 11/10/2015 Comp Metabolic Qlm005 Creat 0.8 mg/dL 11/10/2015 Comp Metabolic Cap958 eGFR 78 ml/min/1.73m2 11/10/2015 Comp Metabolic Gqn986 BUN 22 mg/dL 11/10/2015 Comp Metabolic Xla888 B/C Ratio 27.8 Ratio 11/10/2015 Comp Metabolic Osj023 CALCIUM 8.5 mg/dL 11/10/2015 Comp Metabolic Lux502 ALK PHOS 130 U/L 11/10/2015 Comp Metabolic Wna252 AST(SGOT) 56 U/L 11/10/2015 Comp Metabolic Fhx126 ALT(SGPT) 51 U/L 11/10/2015 Comp Metabolic Csq124 BILI T 0.5 mg/dL 11/10/2015 Comp Metabolic Gha756 ALBUMIN 3.5 g/dL 11/10/2015 Comp Metabolic Qpa496 TPRO 5.8 g/dL 11/10/2015 Comp Metabolic Cds544 GLOB 2.3 g/dL 11/10/2015 Comp Metabolic Enc010 A/G Ratio 1.5 Ratio 11/10/2015 Comp Metabolic Ekr229 Osmo 283 mOsmo 11/10/2015 Cbc With Differential Ord2 WBC 11.14 K/ul 11/10/2015 Cbc With Differential Ord2 RBC 4.35 M/ul 11/10/2015 Cbc With Differential Ord2 HGB 12.2 g/dl 11/10/2015 Cbc With Differential Ord2 Neut% 73.7 % 11/10/2015 Cbc With Differential Ord2 HCT 40.5 % 11/10/2015 Cbc With Differential Ord2 MCV 93.1 fl 11/10/2015 Cbc With Differential Ord2 Lymph% 17.2 % 11/10/2015 Cbc With Differential Ord2 MCH 28.0 pg 11/10/2015 Cbc With Differential Ord2 [place]% 7.7 % 11/10/2015 Cbc With Differential Ord2 Eos% 1.1 % 11/10/2015 Cbc With Differential Ord2 MCHC 30.1 pg 11/10/2015 Cbc With Differential Ord2 Baso% 0.3 % 11/10/2015 Cbc With Differential Ord2 PLT 274 K/ul 11/10/2015 Cbc With Differential Ord2 Neut ABS# 8.21 K/ul 11/10/2015 Cbc With Differential Ord2 RDW 16.8 % 11/10/2015 Cbc With Differential Ord2 Lymph ABS# 1.92 K/ul 11/10/2015 Cbc With Differential Ord2 [place] ABS# 0.9 K/ul 11/10/2015 Cbc With Differential [...] 45.4 % 08/11/2015 Cbc With Differential Ord2 MCV 95.4 fl 08/11/2015 Cbc With Differential Ord2 Lymph% 25.4 % 08/11/2015 Cbc With Differential Ord2 [place]% 8.1 % 08/11/2015 Cbc With Differential Ord2 MCH 28.6 pg 08/11/2015 Cbc With Differential Ord2 MCHC 30.0 pg 08/11/2015 Cbc With Differential Ord2 Eos% 1.0 % 08/11/2015 Cbc With Differential Ord2 PLT 442 K/ul 08/11/2015 Cbc With Differential Ord2 Baso% 0.3 % 08/11/2015 Cbc With Differential Ord2 Neut ABS# 7.54 K/ul 08/11/2015 Cbc With Differential Ord2 RDW 15.5 % 08/11/2015 Cbc With Differential Ord2 Lymph ABS# 2.93 K/ul 08/11/2015 Cbc With Differential Ord2 [place] ABS# 0.9 K/ul 08/11/2015 Cbc With Differential Ord2 Eos ABS# 0.1 K/ul 08/11/2015 Cbc With Differential Ord2 Baso ABS# 0.0 K/ul 08/11/2015 Cbc With Differential Ord2 New Analyzer Notice Please note new ref ranges starting 06-03-2015 due to implemntation of new five part differential hematolgy analyzer. 08/11/2015 Comp Metabolic Bpy444 NA 142 mEq/L 08/11/2015 Comp Metabolic Ujy349 K 3.6 mEq/L 08/11/2015 Comp Metabolic Jko186 CL 98 mEq/L 08/11/2015 Comp Metabolic Yaj439 CO2 33.0 mEq/L 08/11/2015 Comp Metabolic Gax722 ANION GAP 15 08/11/2015 Comp Metabolic Jse533 GLUCOSE 100 mg/dL 08/11/2015 Comp Metabolic Suh091 Creat 0.9 mg/dL 08/11/2015 Comp Metabolic Vzj179 eGFR 65 ml/min/1.73m2 08/11/2015 Comp Metabolic Kvi083 BUN 15 mg/dL 08/11/2015 Comp Metabolic Qhl525 B/C Ratio 16.3 Ratio 08/11/2015 Comp Metabolic Lnc002 CALCIUM 8.8 mg/dL 08/11/2015 Comp Metabolic Sye794 ALK PHOS 171 U/L 08/11/2015 Comp Metabolic Oxs494 AST(SGOT) 76 U/L 08/11/2015 Comp Metabolic Oti367 ALT(SGPT) 64 U/L 08/11/2015 Comp Metabolic Lbh217 BILI T 0.4 mg/dL 08/11/2015 Comp Metabolic Azi231 ALBUMIN 4.2 g/dL 08/11/2015 Comp Metabolic Ajq510 TPRO 6.7 g/dL 08/11/2015 Comp Metabolic Zbq418 GLOB 2.6 g/dL 08/11/2015 Comp Metabolic Zab292 A/G Ratio 1.6 Ratio 08/11/2015 Comp Metabolic Skt968 Osmo 284 mOsmo 08/11/2015 %Hba1C Xsd082 % HbA1c 54995-1 6.7 % 08/11/2015 %Hba1C Ovo338 Gluc Ave 146 mg/dL 08/11/2015 Free T4 Eig372 FREE T4 1.07 ng/dL 08/11/2015 Culture Urine [id number] URINE CULTURE SEE NOTES 07/23/2015 Culture Urine [id number] Continued Results 07/23/2015 Urine Culture Ucult Complete Growth of aerobe sent to ref lab 07/21/2015 Free T4 Fve491 FREE T4 0.76 ng/dL 04/15/2015 Tsh Ord6 hTSH II 1.99 uIU/mL 04/15/2015 %Hba1C Ajv508 % HbA1c 63652-8 6.7 % 04/14/2015 %Hba1C Dmv276 Gluc Ave 146 mg/dL 04/14/2015 Comp Metabolic Ghi905 NA 140 mEq/L 04/14/2015 Comp Metabolic Eco711 K 4.4 mEq/L 04/14/2015 Comp Metabolic Ibo801 CL 99 mEq/L 04/14/2015 Comp Metabolic Pwc914 CO2 29.0 mEq/L 04/14/2015 Comp Metabolic Pgn200 ANION GAP 16 04/14/2015 Comp Metabolic Gpx906 GLUCOSE 100 mg/dL 04/14/2015 Comp Metabolic Qfh910 Creat 0.7 mg/dL 04/14/2015 Comp Metabolic Qhl215 eGFR 91 ml/min/1.73m2 04/14/2015 Comp Metabolic Gfo758 BUN 13 mg/dL 04/14/2015 Comp Metabolic Sny591 B/C Ratio 18.8 Ratio 04/14/2015 Comp Metabolic Yas483 CALCIUM 9.1 mg/dL 04/14/2015 Comp Metabolic Jlq062 ALK PHOS 138 U/L 04/14/2015 Comp Metabolic Der858 AST(SGOT) 22 U/L 04/14/2015 Comp Metabolic Vlx792 ALT(SGPT) 22 U/L 04/14/2015 Comp Metabolic Ttw786 BILI T 0.3 mg/dL 04/14/2015 Comp Metabolic Wwo105 ALBUMIN 4.0 g/dL 04/14/2015 Comp Metabolic Yxx990 TPRO 6.5 g/dL 04/14/2015 Comp Metabolic Zwn677 GLOB 2.5 g/dL 04/14/2015 Comp Metabolic Qed438 A/G Ratio 1.6 Ratio 04/14/2015 Comp Metabolic Ful428 Osmo 280 mOsmo 04/14/2015 Cbc With Differential [...] Ord2 RDW 16.5 % 04/14/2015 CHEM 14 5196100 AST 15 U/L 09/11/2013 CHEM 14 0769201 ALT 25 IU/L 09/11/2013 CHEM 14 6593121 BUN 29 MG/DL 09/11/2013 CHEM 14 3109476 ALBUMIN 3.8 GM/DL 09/11/2013 CHEM 14 8457243 CHLORIDE 99 MMOL/L 09/11/2013 CHEM 14 6641529 BILI TOT 0.2 MG/DL 09/11/2013 CHEM 14 1158566 ALK PHOS 118 U/L 09/11/2013 CHEM 14 1844483 SODIUM 136 MMOL/L 09/11/2013 CHEM 14 2867543 CREATININE 1.26 MG/DL 09/11/2013 CHEM 14 5945013 CALCIUM 9.0 MG/DL 09/11/2013 CHEM 14 5623381 POTASSIUM 5.0 MMOL/L 09/11/2013 CHEM 14 0516913 PROT TOT 6.2 GM/DL 09/11/2013 CHEM 14 4980542 GLUCOSE 254 MG/DL 09/11/2013 CHEM 14 5330712 BICARB 29 MMOL/L 09/11/2013 CHEM 14 5591957 ANION GAP 8 MEQ/L 09/11/2013 GFR CALC 5711970 GFR AA 52.0L ML/MIN 09/11/2013 GFR CALC 4735542 GFR NON-AA 43.0L ML/MIN 09/11/2013 FREE T4 3277625 FREE T4 1.35 NG/DL 08/02/2013 CBC 4354657 WBC 7.5 10e9/L 08/01/2013 CBC 4210349 RBC 3.88 10e12/L 08/01/2013 CBC 9043936 HGB 12.1 g/dL 08/01/2013 CBC 5523863 HCT DET 37.6 % 08/01/2013 CBC 7789855 MCV 96.9 fL 08/01/2013 CBC 8776028 MCH 31.2 pg 08/01/2013 CBC 5173148 MCHC 32.2 g/dL 08/01/2013 CBC 9300403 PLT 289 10e9/L 08/01/2013 CBC 6945900 MPV 9.6 fL 08/01/2013 CBC 0299503 JOSEFIN[place] % 56.0 % 08/01/2013 CBC 0199222 LY % 31.6 % 08/01/2013 CBC 7706424 MON % 10.0 % 08/01/2013 CBC 1286057 EOS % 1.7 % 08/01/2013 CBC 4931509 BASO % 0.7 % 08/01/2013 CBC 8573631 RDW 15.5 % 08/01/2013 CBC 9178236 ABS JOSEFINA 4.20 10e9/L 08/01/2013 CBC 6849030 ABS LYMPH 2.37 10e9/L 08/01/2013 CBC 7231391 ABS MONO 0.75 10e9/L 08/01/2013 CBC 9655002 ABS EOS 0.13 10e9/L 08/01/2013 CBC 6633594 ABS BASO 0.05 10e9/L 08/01/2013 CBC 0056500 RDW-SD 53.5 fL 08/01/2013 TSH 0769551 TSH 6.497 uIU/ML 08/01/2013 CHEM 14 4609676 AST 53 U/L 08/01/2013 CHEM 14 2032956 ALT 36 IU/L 08/01/2013 CHEM 14 2180007 BUN 16 MG/DL 08/01/2013 CHEM 14 4458386 ALBUMIN 4.2 GM/DL 08/01/2013 CHEM 14 3463586 CHLORIDE 103 MMOL/L 08/01/2013 CHEM 14 1712235 BILI TOT 0.4 MG/DL 08/01/2013 CHEM 14 3229455 ALK PHOS 113 U/L 08/01/2013 CHEM 14 6711287 SODIUM 139 MMOL/L 08/01/2013 CHEM 14 1646571 CREATININE 0.83 MG/DL 08/01/2013 CHEM 14 6995491 CALCIUM 9.5 MG/DL 08/01/2013 CHEM 14 1987102 POTASSIUM 4.2 MMOL/L 08/01/2013 CHEM 14 5724445 PROT TOT 6.4 GM/DL 08/01/2013 CHEM 14 3835279 GLUCOSE 135 MG/DL 08/01/2013 CHEM 14 7975871 BICARB 26 MMOL/L 08/01/2013 CHEM 14 9107396 ANION GAP 10 MEQ/L 08/01/2013 A1C HPLC 1810107 A1C HPLC 04383-6 8.1 % 08/01/2013 GFR CALC 7414999 GFR AA >60 ML/MIN 08/01/2013 GFR CALC 1631086 GFR NON-AA >60 ML/MIN 08/01/2013 CBC 5054982 WBC 10.4 10e9/L 03/21/2013 CBC 6328329 RBC 4.27 10e12/L 03/21/2013 CBC 8694633 HGB 13.1 g/dL 03/21/2013 CBC 2862977 HCT DET 41.2 % 03/21/2013 CBC 9807147 MCV 96.5 fL 03/21/2013 CBC 3891378 MCH 30.7 pg 03/21/2013 CBC 9969694 MCHC 31.8 g/dL 03/21/2013 CBC 5818950 PLT 398 10e9/L 03/21/2013 CBC 0072455 MPV 10.9 fL 03/21/2013 CBC 0844202 [place] % 65.4 % 03/21/2013 CBC 0155015 LY % 25.6 % 03/21/2013 CBC 6339944 MON % 6.7 % 03/21/2013 CBC 6865180 EOS % 1.9 % 03/21/2013 CBC 6601151 BASO % 0.4 % 03/21/2013 CBC 9534152 RDW 14.2 % 03/21/2013 CBC 0457674 ABS JOSEFINA 6.80 10e9/L 03/21/2013 CBC 3956425 ABS LYMPH 2.66 10e9/L 03/21/2013 CBC 6878073 ABS MONO 0.70 10e9/L 03/21/2013 CBC 0800721 ABS EOS 0.20 10e9/L 03/21/2013 CBC 3204216 ABS BASO 0.04 10e9/L 03/21/2013 CBC 1656631 RDW-SD 48.7 fL 03/21/2013 GFR CALC 2348562 GFR AA 57.0L ML/MIN 03/21/2013 GFR CALC 2281285 GFR NON-AA 47.0L ML/MIN 03/21/2013 CHEM 14 2194995 AST 22 U/L 03/21/2013 CHEM 14 9200365 ALT 22 IU/L 03/21/2013 CHEM 14 9897808 BUN 29 MG/DL 03/21/2013 CHEM 14 1096649 ALBUMIN 4.1 GM/DL 03/21/2013 CHEM 14 2433333 CHLORIDE 99 MMOL/L 03/21/2013 CHEM 14 7027307 BILI TOT 0.3 MG/DL 03/21/2013 CHEM 14 6763704 ALK PHOS 123 U/L 03/21/2013 CHEM 14 8134808 SODIUM 137 MMOL/L 03/21/2013 CHEM 14 8218263 CREATININE 1.16 MG/DL 03/21/2013 CHEM 14 1990737 CALCIUM 9.1 MG/DL 03/21/2013 CHEM 14 8769697 POTASSIUM 4.1 MMOL/L 03/21/2013 CHEM 14 1969883 PROT TOT 6.7 GM/DL 03/21/2013 CHEM 14 4062353 GLUCOSE 209 MG/DL 03/21/2013 CHEM 14 3792660 BICARB 26 MMOL/L 03/21/2013 CHEM 14 8571402 ANION GAP 12 MEQ/L 03/21/2013 A1C HPLC 5894585 A1C HPLC 56892-5 6.6 % 03/21/2013 GFR CALC 2952771 GFR AA >60 ML/MIN 01/17/2013 GFR CALC 2742799 GFR NON-AA 51.0L ML/MIN 01/17/2013 CHEM 14 0555961 AST 18 U/L 01/17/2013 CHEM 14 5194502 ALT 32 IU/L 01/17/2013 CHEM 14 2067618 BUN 22 MG/DL 01/17/2013 CHEM 14 9084249 ALBUMIN 4.1 GM/DL 01/17/2013 CHEM 14 5388658 CHLORIDE 99 MMOL/L 01/17/2013 CHEM 14 3250381 BILI TOT 0.3 MG/DL 01/17/2013 CHEM 14 3260317 ALK PHOS 110 U/L 01/17/2013 CHEM 14 8471807 SODIUM 138 MMOL/L 01/17/2013 CHEM 14 9451251 CREATININE 1.09 MG/DL 01/17/2013 CHEM 14 4547192 CALCIUM 8.8 MG/DL 01/17/2013 CHEM 14 8342359 POTASSIUM 3.5 MMOL/L 01/17/2013 CHEM 14 7638745 PROT TOT 6.1 GM/DL 01/17/2013 CHEM 14 8700112 GLUCOSE 163 MG/DL 01/17/2013 CHEM 14 7203132 BICARB 29 MMOL/L 01/17/2013 CHEM 14 9414700 ANION GAP 10 MEQ/L 01/17/2013 CBC 3446077 WBC 8.0 10e9/L 01/17/2013 CBC 0273550 RBC 3.85 10e12/L 01/17/2013 CBC 3207178 HGB 12.6 g/dL 01/17/2013 CBC 7038273 HCT DET 38.0 % 01/17/2013 CBC 6088651 MCV 98.7 fL 01/17/2013 CBC 8362039 MCH 32.7 pg 01/17/2013 CBC 3742935 MCHC 33.2 g/dL 01/17/2013 CBC 8385162 PLT 325 10e9/L 01/17/2013 CBC 9164596 MPV 10.4 fL 01/17/2013 CBC 0433554 JOSEFINA % 64.6 % 01/17/2013 CBC 5653938 LY % 27.0 % 01/17/2013 CBC 3241065 MON % 6.8 % 01/17/2013 CBC 3258659 EOS % 1.4 % 01/17/2013 CBC 6802194 BASO % 0.2 % 01/17/2013 CBC 3717135 RDW 15.5 % 01/17/2013 CBC 7468265 ABS JOSEFINA 5.17 10e9/L 01/17/2013 CBC 2849351 ABS LYMPH 2.16 10e9/L 01/17/2013 CBC 8905477 ABS MONO 0.54 10e9/L 01/17/2013 CBC 3053219 ABS EOS 0.11 10e9/L 01/17/2013 CBC 6778489 ABS BASO 0.02 10e9/L 01/17/2013 CBC 5019680 RDW-SD 54.3 fL 01/17/2013 TSH 0735592 TSH 3.683 uIU/ML 12/31/2012 FREE T4 2226189 FREE T4 1.34 NG/DL 12/31/2012 A1C HPLC 1508483 A1C HPLC 88435-4 6.6 % 12/21/2012 CHEM 14 1042621 AST 16 U/L 12/20/2012 CHEM 14 8725958 ALT 36 IU/L 12/20/2012 CHEM 14 5969149 BUN 26 MG/DL 12/20/2012 CHEM 14 0687486 ALBUMIN 4.2 GM/DL 12/20/2012 CHEM 14 5434972 CHLORIDE 103 MMOL/L 12/20/2012 CHEM 14 7301562 BILI TOT 0.4 MG/DL 12/20/2012 CHEM 14 0091317 ALK PHOS 107 U/L 12/20/2012 CHEM 14 5289799 SODIUM 141 MMOL/L 12/20/2012 CHEM 14 8696923 CREATININE 0.73 MG/DL 12/20/2012 CHEM 14 2649048 CALCIUM 9.2 MG/DL 12/20/2012 CHEM 14 5543129 POTASSIUM 4.3 MMOL/L 12/20/2012 CHEM 14 7274629 PROT TOT 6.2 GM/DL 12/20/2012 CHEM 14 7134383 GLUCOSE 135 MG/DL 12/20/2012 CHEM 14 3164999 BICARB 32 MMOL/L 12/20/2012 CHEM 14 7848867 ANION GAP 6 MEQ/L 12/20/2012 GFR CALC 9254788 GFR AA >60 ML/MIN 12/20/2012 GFR CALC 8174902 GFR NON-AA >60 ML/MIN 12/20/2012 CBC 3289129 WBC 8.4 10e9/L 12/20/2012 CBC 9778697 RBC 4.30 10e12/L 12/20/2012 CBC 8406934 HGB 13.9 g/dL 12/20/2012 CBC 5152724 HCT DET 41.8 % 12/20/2012 CBC 9124574 MCV 97.2 fL 12/20/2012 CBC 8900430 MCH 32.3 pg 12/20/2012 CBC 7450938 MCHC 33.3 g/dL 12/20/2012 CBC 9440086 PLT 358 10e9/L 12/20/2012 CBC 1194123 MPV 10.2 fL 12/20/2012 CBC 7292190 JOSEFINA % 63.3 % 12/20/2012 CBC 8482665 LY % 28.9 % 12/20/2012 CBC 0630713 MON % 6.3 % 12/20/2012 CBC 7831122 EOS % 1.1 % 12/20/2012 CBC 6433573 BASO % 0.4 % 12/20/2012 CBC 7716741 RDW 15.3 % 12/20/2012 CBC 1225815 ABS JOSEFINA 5.32 10e9/L 12/20/2012 CBC 3602557 ABS LYMPH 2.43 10e9/L 12/20/2012 CBC 4897312 ABS MONO 0.53 10e9/L 12/20/2012 CBC 7058022 ABS EOS 0.09 10e9/L 12/20/2012 CBC 3355591 ABS BASO 0.03 10e9/L 12/20/2012 CBC 0066549 RDW-SD 51.9 fL 12/20/2012 GFR CALC 8950064 GFR AA >60 ML/MIN 02/01/2012 GFR CALC 4638016 GFR NON-AA >60 ML/MIN 02/01/2012 CBC 1931421 WBC 10.8 10e9/L 02/01/2012 CBC 4000848 RBC 3.86 10e12/L 02/01/2012 CBC 4619002 HGB 11.8 g/dL 02/01/2012 CBC 2019972 HCT DET 36.3 % 02/01/2012 CBC 2329443 MCV 94.0 fL 02/01/2012 CBC 8596323 MCH 30.6 pg 02/01/2012 CBC 6668288 MCHC 32.5 g/dL 02/01/2012 CBC 7603963 PLT 321 10e9/L 02/01/2012 CBC 1758746 MPV 10.3 fL 02/01/2012 CBC 9202669 JOSEFINA % 75.9 % 02/01/2012 CBC 9763842 LY % 16.1 % 02/01/2012 CBC 7206414 MON % 6.8 % 02/01/2012 CBC 4436511 EOS % 1.0 % 02/01/2012 CBC 8926122 BASO % 0.2 % 02/01/2012 CBC 1489174 RDW 14.2 % 02/01/2012 CBC 2664825 ABS JOSEFINA 8.20 10e9/L 02/01/2012 CBC 0513571 ABS LYMPH 1.74 10e9/L 02/01/2012 CBC 4614384 ABS MONO 0.73 10e9/L 02/01/2012 CBC 1806712 ABS EOS 0.11 10e9/L 02/01/2012 CBC 0994646 ABS BASO 0.02 10e9/L 02/01/2012 CBC 5298854 RDW-SD 47.2 fL 02/01/2012 BRAIN PEP 1725276 BRAIN PEP FOOTNOTE pg/mL 02/01/2012 CHEM 14 0097032 AST 26 U/L 02/01/2012 CHEM 14 5925942 ALT 36 IU/L 02/01/2012 CHEM 14 5747312 BUN 29 MG/DL 02/01/2012 CHEM 14 8974300 ALBUMIN 3.7 GM/DL 02/01/2012 CHEM 14 0699093 CHLORIDE 105 MMOL/L 02/01/2012 CHEM 14 9268143 BILI TOT 0.2 MG/DL 02/01/2012 CHEM 14 5051324 ALK PHOS 89 U/L 02/01/2012 CHEM 14 0769190 SODIUM 141 MMOL/L 02/01/2012 CHEM 14 3554723 CREATININE 0.76 MG/DL 02/01/2012 CHEM 14 5049579 CALCIUM 9.0 MG/DL 02/01/2012 CHEM 14 0167947 POTASSIUM 4.8 MMOL/L 02/01/2012 CHEM 14 9481200 PROT TOT 5.5 GM/DL 02/01/2012 CHEM 14 1435709 GLUCOSE 83 MG/DL 02/01/2012 CHEM 14 7282043 BICARB 31 MMOL/L 02/01/2012 CHEM 14 4034521 ANION GAP 5 MEQ/L 02/01/2012 GFR CALC 7198654 GFR AA >60 ML/MIN 11/30/2011 GFR CALC 6097695 GFR NON-AA >60 ML/MIN 11/30/2011 CHEM 14 0571795 AST 14 U/L 11/30/2011 CHEM 14 8346499 ALT 17 IU/L 11/30/2011 CHEM 14 7687410 BUN 12 MG/DL 11/30/2011 CHEM 14 5779874 ALBUMIN 4.3 GM/DL 11/30/2011 CHEM 14 5991244 CHLORIDE 104 MMOL/L 11/30/2011 CHEM 14 1464555 BILI TOT 0.3 MG/DL 11/30/2011 CHEM 14 4083710 ALK PHOS 83 U/L 11/30/2011 CHEM 14 0973614 SODIUM 143 MMOL/L 11/30/2011 CHEM 14 8730598 CREATININE 0.71 MG/DL 11/30/2011 CHEM 14 5788054 CALCIUM 9.7 MG/DL 11/30/2011 CHEM 14 5111992 POTASSIUM 4.4 MMOL/L 11/30/2011 CHEM 14 2446927 PROT TOT 6.3 GM/DL 11/30/2011 CHEM 14 7990388 GLUCOSE 107 MG/DL 11/30/2011 CHEM 14 8513996 BICARB 27 MMOL/L 11/30/2011 CHEM 14 1291124 ANION GAP 12 MEQ/L 11/30/2011 CBC 0938137 WBC 8.7 10e9/L 11/30/2011 CBC 0551186 RBC 4.40 10e12/L 11/30/2011 CBC 3984197 HGB 13.6 g/dL 11/30/2011 CBC 2541435 HCT DET 41.0 % 11/30/2011 CBC 7471887 MCV 93.2 fL 11/30/2011 CBC 0398620 MCH 30.9 pg 11/30/2011 CBC 2957828 MCHC 33.2 g/dL 11/30/2011 CBC 7365233 PLT 328 10e9/L 11/30/2011 CBC 8910660 MPV 10.7 fL 11/30/2011 CBC 2160550 JOSEFINA % 68.4 % 11/30/2011 CBC 9567817 LY % 22.4 % 11/30/2011 CBC 8719265 MON % 7.9 % 11/30/2011 CBC 0344817 EOS % 1.1 % 11/30/2011 CBC 5116535 BASO % 0.2 % 11/30/2011 CBC 1334261 RDW 13.5 % 11/30/2011 CBC 8522404 ABS JOSEFINA 5.95 10e9/L 11/30/2011 CBC 3350705 ABS LYMPH 1.95 10e9/L 11/30/2011 CBC 7836938 ABS MONO 0.69 10e9/L 11/30/2011 CBC 4461233 ABS EOS 0.10 10e9/L 11/30/2011 CBC 3782458 ABS BASO 0.02 10e9/L 11/30/2011 CBC 1840632 RDW-SD 45.0 fL 11/30/2011 URINALYSIS NONAUTO W/O SCOPE 79576 Specific [place] 1.030 DateTime(Free Text in Aprima) URINALYSIS NONAUTO W/O SCOPE 58590 PH 5 DateTime(Free Text in Aprima) URINALYSIS NONAUTO W/O SCOPE 47848 GLUCOSE neg DateTime( Free Text in Aprima) URINALYSIS NONAUTO W/O SCOPE 46706 Protein neg DateTime( Free Text in Aprima) URINALYSIS NONAUTO W/O SCOPE 80587 Blood neg DateTime(Free Text in Aprima) URINALYSIS NONAUTO W/O SCOPE 49087 Bilirubin neg DateTime(Free Text in Aprima) URINALYSIS NONAUTO W/O SCOPE 86595 Ketones neg DateTime( Free Text in Aprima) URINALYSIS NONAUTO W/O SCOPE 37969 Urobilinogen neg DateTime(Free Text in Aprima) URINALYSIS NONAUTO W/O SCOPE 14070 Nitrite neg DateTime( Free Text in Aprima) URINALYSIS NONAUTO W/O SCOPE 14979 Leukocytes neg DateTime(Free Text in Aprima) UA 02781 Specific [place] 1.010 DateTime(Free Text in Aprima ) UA 36410 PH 5 DateTime(Free Text in Aprima) UA 82264 GLUCOSE N DateTime(Free Text in Aprima) UA 67145 Protein N DateTime(Free Text in Aprima) UA 12805 Blood TRACE DateTime(Free Text in Aprima) UA 58526 Bilirubin N DateTime(Free Text in Aprima) UA 47284 Ketones N DateTime(Free Text in Aprima) UA 19916 Urobilinogen N DateTime(Free Text in Aprima) UA 10926 Nitrite N DateTime(Free Text in Aprima) UA 83659 Leukocytes N DateTime(Free Text in Aprima) URINALYSIS NONAUTO W/O SCOPE 65177 Specific Appling 1.010 DateTime(Free Text in Aprima) URINALYSIS NONAUTO W/O SCOPE 75263 PH 7.5 DateTime(Free Text in Aprima) URINALYSIS NONAUTO W/O SCOPE 46808 GLUCOSE DateTime( Free Text in Aprima) URINALYSIS NONAUTO W/O SCOPE 28641 Protein trace DateTime(Free Text in Aprima) URINALYSIS NONAUTO W/O SCOPE 66108 Blood DateTime(Free Text in Aprima) URINALYSIS NONAUTO W/O SCOPE 79401 Bilirubin DateTime( Free Text in Aprima) URINALYSIS NONAUTO W/O SCOPE 09459 Ketones DateTime( Free Text in Aprima) URINALYSIS NONAUTO W/O SCOPE 53667 Urobilinogen DateTime (Free Text in Aprima) URINALYSIS NONAUTO W/O SCOPE 86141 Nitrite DateTime( Free Text in Aprima) URINALYSIS NONAUTO W/O SCOPE 55078 Leukocytes DateTime( Free Text in Aprima) URINALYSIS NONAUTO W/O SCOPE 97985 Specific Appling 1.010 DateTime(Free Text in Aprima) URINALYSIS NONAUTO W/O SCOPE 51434 PH 6 DateTime(Free Text in Aprima) URINALYSIS NONAUTO W/O SCOPE 59873 GLUCOSE DateTime( Free Text in Aprima) URINALYSIS NONAUTO W/O SCOPE 19717 Protein DateTime( Free Text in Aprima) URINALYSIS NONAUTO W/O SCOPE 19126 Blood DateTime(Free Text in Aprima) URINALYSIS NONAUTO W/O SCOPE 30015 Bilirubin DateTime( Free Text in Aprima) URINALYSIS NONAUTO W/O SCOPE 64418 Ketones DateTime( Free Text in Aprima) URINALYSIS NONAUTO W/O SCOPE 15922 Urobilinogen DateTime (Free Text in Aprima) URINALYSIS NONAUTO W/O SCOPE 69387 Nitrite DateTime( Free Text in Aprima) URINALYSIS NONAUTO W/O SCOPE 27024 Leukocytes DateTime( Free Text in Aprima) UA 51024 Specific Appling 1.020 DateTime(Free Text in Aprima ) UA 48210 PH 6 DateTime(Free Text in Aprima) UA 30633 GLUCOSE neg DateTime(Free Text in Aprima) UA 17109 Protein neg DateTime(Free Text in Aprima) UA 34198 Blood neg DateTime(Free Text in Aprima) UA 79496 Bilirubin neg DateTime(Free Text in ) UA 54839 Ketones neg DateTime(Free Text in ) UA 52118 Urobilinogen neg DateTime(Free Text in ) UA 05492 Nitrite neg DateTime(Free Text in ) UA 09511 Leukocytes neg DateTime(Free Text in ) Review [...] accomodation 02/20/2018 None Full Exam - General 1995 Ears/Nose/Throat lips/teeth/gingiva Overall: benign lips 02/20/2018 None [...] visualized 03/25/2014 None Full Exam - General 1995 [...] Exam - General 1995 Constitutional general appearance Nourishment: obese 03/21/2013 None [...] bilaterally 03/21/2013 None Full Exam - General 1995 Respiratory respiratory effort/rhythm Overall: no retractions 03/21/2013 [...] General 1995 Abdomen abdominal exam Contour: rounded 12/31/2012 None [...] _ 09/06/2012 None Full Exam - General 1995 Cardiovascular extremities Edema present: bilateral 09/06/2012 None Full Exam - General 1994 Cardiovascular extremities Edema present: to knees 09/06/2012 None Full Exam - General 1995 [...] 06/07/2012 None Full Exam - General 1995 Eyes [...] benign 02/15/2012 None Full Exam - General 1995 Neurologic deep tendon reflexes Overall: deep tendon reflexes intact 02/15/2012 None Full Exam - General 1995 Neurologic cranial nerves Overall: crainial nerves 2 - 12 grossly intact 02/15/2012 None Full Exam - General 1994 Psychiatric orientation/consciousness Overall: oriented to person, place and time 02/15/2012 None Full Exam - General 1995 Psychiatric [...] developed 02/01/2012 None Full Exam - General 1995 Constitutional [...] knees 02/01/2012 None Full Exam - General 1995 [...] accomodation 11/03/2011 None Full Exam - General 1995 [...] occlusion 10/24/2011 None Full Exam - General 1995 [...] Codes Date URINALYSIS NONAUTO W/O SCOPE CPT-4: 42663 04/10/2018 GLUCOSE MONITORING CONT CPT-4: 41246 04/10/2018 OCCULT BLOOD FECES CPT -4: 51439 02/22/2018 URINALYSIS NONAUTO W/O SCOPE CPT-4: 08587 02/20/2018 URINALYSIS NONAUTO W/O SCOPE CPT-4: 41921 12/14/2017 URINALYSIS NONAUTO W/O SCOPE CPT-4: 79832 11/27/2017 PPPS, SUBSEQ VISIT CPT -4: G0439 10/27/2017 GLUCOSE MONITORING CONT CPT-4: 28734 09/27/2017 URINALYSIS NONAUTO W/O SCOPE CPT-4: 45888 06/30/2017 URINALYSIS NONAUTO W/O SCOPE CPT-4: 56585 11/25/2016 URINALYSIS NONAUTO W/O SCOPE CPT-4: 34677 10/21/2016 URINALYSIS NONAUTO W/O SCOPE CPT-4: 13447 06/24/2016 URINALYSIS NONAUTO W/O SCOPE CPT-4: 35235 04/11/2016 ADMIN PNEUMOCOCCAL VACCINE SNOMED CT: [id number] CPT-4: G0009 02/26/2016 PNEUMOCOCCAL VACC 13 ANURADHA IM Formatting Model/CDA Sections, Assigned to/Jada Velazquez SNOMED CT: [id number] CPT-4: [id number] 02/26/2016 URINALYSIS NONAUTO W/O SCOPE CPT-4: 55584 02/10/2016 URINALYSIS NONAUTO W/O SCOPE CPT-4: 38687 11/27/2015 URINALYSIS NONAUTO W/O SCOPE CPT-4: 96715 11/02/2015 INITIAL PREVENTIVE EXAM CPT-4: G0402 09/29/2015 URINALYSIS NONAUTO W/O SCOPE CPT-4: 74597 07/20/2015 TRIAMCINOLONE ACET INJ NOS CPT-4: J3301 06/26/2015 URINALYSIS NONAUTO W/O SCOPE CPT-4: 07934 11/05/2014 URINALYSIS NONAUTO W/O SCOPE CPT-4: 68557 04/21/2014 CULTURE AEROBIC IDENTIFY CPT-4: 10837 12/12/2013 URINALYSIS NONAUTO W/O SCOPE CPT-4: 04392 11/18/2013 ROUTINE VENIPUNCTURE CPT-4: 30337 09/10/2013 ROUTINE VENIPUNCTURE CPT-4: 83481 08/01/2013 URINALYSIS NONAUTO W/O SCOPE CPT-4: 24905 06/28/2013 TRIAMCINOLONE ACET INJ NOS CPT-4: J3301 05/07/2013 DRAIN/INJECT JOINT/BURSA CPT-4: 17367 05/07/2013 ROUTINE VENIPUNCTURE CPT-4: 08821 03/21/2013 ROUTINE VENIPUNCTURE CPT-4: 35044 01/17/2013 URINALYSIS NONAUTO W/O SCOPE CPT-4: 39270 01/01/2013 ROUTINE VENIPUNCTURE CPT-4: 30500 12/31/2012 ROUTINE VENIPUNCTURE CPT-4: 43869 12/20/2012 URINALYSIS NONAUTO W/O SCOPE CPT-4: 95551 11/05/2012 DRAIN/INJECT JOINT/BURSA CPT-4: 93417 09/21/2012 TRIAMCINOLONE ACET INJ NOS CPT-4: J3301 09/21/2012 URINALYSIS NONAUTO W/O SCOPE CPT-4: 41201 07/19/2012 TRIAMCINOLONE ACET INJ NOS CPT-4: J3301 07/06/2012 Pneumococcal Polysaccharide Vaccine, 23-Valent, Ad CPT-4: 18684 06/07/2012 IMMUNIZATION ADMIN CPT -4: 20122 06/07/2012 TRIAMCINOLONE ACET INJ NOS CPT-4: J3301 05/02/2012 ROUTINE VENIPUNCTURE CPT-4: 85991 02/01/2012 URINALYSIS NONAUTO W/O SCOPE CPT-4: 80310 02/01/2012 TRIAMCINOLONE ACET INJ NOS CPT-4: J3301 12/14/2011 INJ TRIGGER POINT 1/2 MUSCL CPT-4: 45261 12/14/2011 PROMETHAZINE HCL INJECTION CPT-4: J2550 11/30/2011 ROUTINE VENIPUNCTURE CPT-4: 76664 11/30/2011 TRIAMCINOLONE ACET INJ NOS CPT-4: J3301 08/01/2011 DRAIN/INJECT JOINT/BURSA CPT-4: 18313 08/01/2011 THER/PROPH/DIAG INJ SC/IM CPT-4: 07259 04/18/2011 TRIAMCINOLONE ACET INJ NOS CPT-4: J3301 04/18/2011 Vital Signs Date Vital 04/10/2018 Blood Pressure 1: 120/68 Code : 8480-6 BMI: 39.7 Code : 30318-4 Heart Rate 1 : 87 bpm Height: 5'2" SpO2: 99% Weight: 217 lbs 03/12/2018 Blood Pressure 1: 140/70 Code : 8480-6 BMI: 40.2 Code : 22685-4 Heart Rate 1 : 78 bpm Height: 5'2" SpO2: 98% Weight: 220 lbs 02/20/2018 Blood Pressure 1: 140/70 Code : 8480-6 BMI: 40.2 Code : 70599-2 Heart Rate 1 : 96 bpm Height: 5'2" SpO2: 93% Weight: 220 lbs 11/27/2017 Blood Pressure 1: 158/78 Code : 8480-6 BMI: 40.8 Code : 31445-8 Heart Rate 1 : 100 bpm Height: 5'2" SpO2: 95% Weight: 223 lbs 10/27/2017 Blood Pressure 1: 146/70 Code : 8480-6 BMI: 41.3 Code : 77852-4 Heart Rate 1 : 82 bpm Height: 5'2" SpO2: 99% Waist Measure (cm): 119 cm Weight: 226 lbs 09/15/2017 Blood Pressure 1: 136/66 Code : 8480-6 BMI: 41.5 Code : 60697-6 Heart Rate 1 : 94 bpm Height: 5'2" SpO2: 96% Weight: 227 lbs 08/18/2017 Blood Pressure 1: 120/68 Code : 8480-6 BMI: 41.5 Code : 56353-8 Heart Rate 1 : 87 bpm Height: 5'2" SpO2: 94% Weight: 227 lbs 08/03/2017 Blood Pressure 1: 132/72 Code : 8480-6 BMI: 41.5 Code : 79948-1 Heart Rate 1 : 93 bpm Height: 5'2" SpO2: 95% Weight: 227 lbs 07/27/2017 Blood Pressure 1: 128/84 Code : 8480-6 BMI: 41.5 Code : 93557-3 Heart Rate 1 : 91 bpm Height: 5'2" SpO2: 98% Weight: 227 lbs 06/13/2017 Blood Pressure 1: 136/84 Code : 8480-6 BMI: 42.6 Code : 25705-8 Heart Rate 1 : 91 bpm Height: 5'2" SpO2: 94% Weight: 233 lbs 04/21/2017 Blood Pressure 1: 142/84 Code : 8480-6 BMI: 42.8 Code : 62230-4 Heart Rate 1 : 89 bpm Height: 5'2" SpO2: 94% Weight: 234 lbs 04/18/2017 Blood Pressure 1: 140/86 Code : 8480-6 BMI: 42.8 Code : 48985-1 Heart Rate 1 : 89 bpm Height: 5'2" SpO2: 97% Weight: 234 lbs 03/27/2017 Blood Pressure 1: 148/76 Code : 8480-6 BMI: 42.6 Code : 11595-8 Heart Rate 1 : 92 bpm Height: [...] Code : 8480-6 BMI: 44.3 Code : 36126-6 Heart Rate 1 : 90 bpm Height: 5'2" SpO2: 96% Weight: 242 lbs 01/30/2017 Blood Pressure 1: 132/72 Code : 8480-6 Heart Rate 1: 97 bpm Height: 5'2" SpO2: 96% Weight: 01/16/2017 Blood Pressure 1: 138/76 Code : 8480-6 BMI: 43.3 Code : 05062-1 Heart Rate 1 : 84 bpm Height: 5'2" SpO2: 99% Weight: 237 lbs 12/13/2016 Blood Pressure 1: 144/78 Code : 8480-6 Heart Rate 1: 96 bpm Height: 5'2" SpO2: 98% Temperature: 36.6 (C) / 97.9 (F) Weight: 11/11/2016 Blood Pressure 1: 144/80 Code : 8480-6 BMI: 43.0 Code : 63854-5 Heart Rate 1 : 89 bpm Height: 5'2" SpO2: 94% Temperature: 36.1 (C) / 97.0 (F) Weight: 235 lbs 10/28/2016 Blood Pressure 1: 156/82 Code : 8480-6 BMI: 43.9 Code : 87374-5 Heart Rate 1 : 78 bpm Height: [...] Code : 8480-6 BMI: 42.4 Code : 58608-5 Heart Rate 1 : 95 bpm Height: 5'2" SpO2: 98% Weight: 232 lbs 08/09/2016 Blood Pressure 1: 138/80 Code : 8480-6 BMI: 41.0 Code : 18162-7 Heart Rate 1 : 98 bpm Height: 5'2" SpO2: 97% Weight: 224 lbs 07/26/2016 Blood Pressure 1: 148/82 Code : 8480-6 BMI: 42.4 Code : 82251-5 Heart Rate 1 : 89 bpm Height: 5'2" SpO2: 97% Weight: 232 lbs 05/24/2016 Blood Pressure 1: 146/72 Code : 8480-6 BMI: 42.4 Code : 94097-9 Heart Rate 1 : 89 bpm Height: 5'2" SpO2: 99% Weight: 232 lbs 04/19/2016 Blood Pressure 1: 130/88 Code : 8480-6 BMI: 42.4 Code : 55700-9 Heart Rate 1 : 88 bpm Height: 5'2" SpO2: 98% Weight: 232 lbs 04/11/2016 Blood Pressure 1: 140/80 Code : 8480-6 BMI: 41.7 Code : 27858-8 Heart Rate 1 : 97 bpm Height: 5'2" SpO2: 95% Weight: 228 lbs 03/21/2016 Blood Pressure 1: 138/80 Code : 8480-6 BMI: 44.4 Code : 58143-5 Height: 5'2" Weight: 243 lbs 03/11/2016 Blood Pressure 1: 138/82 Code : 8480-6 BMI: 44.4 Code : 63251-4 Heart Rate 1 : 86 bpm Height: 5'2" SpO2: 95% Weight: 243 lbs 02/26/2016 Blood Pressure 1: 130/82 Code : 8480-6 BMI: 43.9 Code : 14990-2 Heart Rate 1 : 86 bpm Height: 5'2" SpO2: 97% Weight: 240 lbs 02/02/2016 Blood Pressure 1: 136/86 Code : 8480-6 Heart Rate 1: 56 bpm Height: SpO2: 96% Weight: 12/17/2015 Blood Pressure 1: 140/80 Code : 8480-6 BMI: 40.2 Code : 56708-8 Heart Rate 1 : 100 bpm Height: 5'2" SpO2: 99% Weight: 220 lbs 12/08/2015 Blood Pressure 1: 132/86 Code : 8480-6 Heart Rate 1: 100 bpm Height: SpO2: 97% Weight: 11/27/2015 Blood Pressure 1: 128/82 Code : 8480-6 BMI: 39.3 Code : 35637-7 Heart Rate 1 : 112 bpm Height: 5'2" SpO2: 96% Weight: 215 lbs 11/12/2015 Blood Pressure 1: 168/88 Code : 8480-6 Heart Rate 1: 106 bpm Height: 5'2" SpO2: 96% Weight: 11/10/2015 Blood Pressure 1: 156/80 Code : 8480-6 Heart Rate 1: 94 bpm Height: 5'2" SpO2: 96% Weight: 10/27/2015 Blood Pressure 1: 142/76 Code : 8480-6 BMI: 40.8 Code : 16075-7 Heart Rate 1 : 86 bpm Height: 5'2" SpO2: 97% Weight: 223 lbs 09/29/2015 Blood Pressure 1: 132/88 Code : 8480-6 BMI: 41.7 Code : 81078-4 Heart Rate 1 : 104 bpm Height: 5'2" SpO2: 94% Weight: 228 lbs 09/22/2015 Blood Pressure 1: 130/80 Code : 8480-6 BMI: 41.7 Code : 49986-7 Heart Rate 1 : 89 bpm Height: 5'2" SpO2: 97% Weight: 228 lbs 09/01/2015 Blood Pressure 1: 138/88 Code : 8480-6 BMI: 40.6 Code : 55618-9 Heart Rate 1 : 95 bpm Height: 5'2" SpO2: 95% Weight: 222 lbs 08/10/2015 Blood Pressure 1: 140/82 Code : 8480-6 BMI: 41.0 Code : 55371-9 Heart Rate 1 : 84 bpm Height: 5'2" SpO2: 97% Weight: 224 lbs 06/26/2015 Blood Pressure 1: 152/72 Code : 8480-6 BMI: 41.2 Code : 76229-9 Heart Rate 1 : 92 bpm Height: 5'2" SpO2: 96% Weight: 225 lbs 04/14/2015 Blood Pressure 1: 158/86 Code : 8480-6 BMI: 41.2 Code : 88189-1 Heart Rate 1 : 63 bpm Height: 5'2" SpO2: 93% Weight: 225 lbs 03/03/2015 Blood Pressure 1: 152/80 Code : 8480-6 BMI: 40.1 Code : 78726-7 Heart Rate 1 : 101 bpm Height: 5'2" SpO2: 97% Weight: 219 lbs 01/15/2015 Blood Pressure 1: 127/76 Code : 8480-6 BMI: 40.6 Code : 91404-6 Heart Rate 1 : 109 bpm Height: 5'2" SpO2: 97% Weight: 222 lbs 01/01/2015 Blood Pressure 1: 136/64 Code : 8480-6 BMI: 40.4 Code : 12614-4 Heart Rate 1 : 94 bpm Height: 5'2" SpO2: 96% Weight: 221 lbs 12/25/2014 Blood Pressure 1: 146/80 Code : 8480-6 Heart Rate 1: 95 bpm Height: 5'2" SpO2: 94% 11/04/2014 Blood Pressure 1: 110/70 Code : 8480-6 BMI: 40.2 Code : 80979-7 Heart Rate 1 : 878 bpm Height: 5'2" SpO2: 97% Weight: 220 lbs 09/08/2014 Blood Pressure 1: 142/78 Code : 8480-6 BMI: 39.5 Code : 71641-9 Heart Rate 1 : 97 bpm Height: 5'2" SpO2: 98% Weight: 216 lbs 08/29/2014 Blood Pressure 1: 140/90 Code : 8480-6 Blood Pressure 2: 120/70 Code: 8480-6 BMI: 40.2 Code: 59756-2 Heart Rate 1: 88 bpm Height: 5'2" Weight: 220 lbs 06/30/2014 Blood Pressure 1: 132/74 Code : 8480-6 BMI: 39.1 Code : 63318-1 Heart Rate 1 : 76 bpm Height: 5'2" Weight: 214 lbs 06/12/2014 Blood Pressure 1: 118/76 Code : 8480-6 BMI: 40.4 Code : 68523-7 Heart Rate 1 : 86 bpm Height: 5'2" SpO2: 96% Weight: 221 lbs 05/26/2014 Blood Pressure 1: 128/78 Code : 8480-6 BMI: 39.5 Code : 55180-5 Heart Rate 1 : 76 bpm Height: 5'2" Weight: 216 lbs 04/15/2014 Blood Pressure 1: 144/72 Code : 8480-6 BMI: 40.8 Code : 79570-0 Heart Rate 1 : 60 bpm Height: 5'2" Weight: 223 lbs 03/25/2014 Blood Pressure 1: 118/72 Code : 8480-6 BMI: 41.2 Code : 66390-5 Heart Rate 1 : 80 bpm Height: 5'2" Weight: 225 lbs 03/03/2014 Blood Pressure 1: 138/86 Code : 8480-6 BMI: 41.5 Code : 25929-5 Heart Rate 1 : 104 bpm Height: 5'2" Temperature: 36.1 (C) / 97.0 (F) Weight: 227 lbs 02/13/2014 Blood Pressure 1: 142/88 Code : 8480-6 BMI: 40.8 Code : 47418-8 Heart Rate 1 : 88 bpm Height: 5'2" Weight: 223 lbs 01/27/2014 Blood Pressure 1: 124/68 Code : 8480-6 BMI: 39.9 Code : 39277-9 Heart Rate 1 : 89 bpm Height: 5'2" SpO2: 94% Weight: 218 lbs 12/26/2013 Blood Pressure 1: 108/52 Code : 8480-6 BMI: 41.2 Code : 79828-2 Heart Rate 1 : 96 bpm Height: 5'2" Weight: 225 lbs 12/12/2013 Blood Pressure 1: 158/88 Code : 8480-6 BMI: 42.6 Code : 39447-3 Heart Rate 1 : 80 bpm Height: 5'2" Weight: 233 lbs 11/14/2013 Blood Pressure 1: 120/60 Code : 8480-6 BMI: 42.4 Code : 86632-0 Heart Rate 1 : 96 bpm Height: 5'2" Temperature: 5423.3 (C ) / 9794.0 (F) Weight: 232 lbs 10/21/2013 Blood Pressure 1: 100/60 Code : 8480-6 BMI: 41.9 Code : 80528-5 Heart Rate 1 : 96 bpm Height: 5'2" Weight: 229 lbs 10/03/2013 Blood Pressure 1: 122/72 Code : 8480-6 BMI: 42.3 Code : 95436-9 Heart Rate 1 : 84 bpm Height: 5'2" Weight: 231 lbs 09/27/2013 Blood Pressure 1: 112/58 Code : 8480-6 Heart Rate 1: 72 bpm SpO2: 93% Temperature: 36.2 (C) / 97.1 (F) Weight: 09/23/2013 Blood Pressure 1: 108/76 Code : 8480-6 BMI: 42.4 Code : 54055-4 Heart Rate 1 : 95 bpm Height: 5'2" SpO2: 96% Weight: 232 lbs 09/20/2013 Blood Pressure 1: 150/88 Code : 8480-6 BMI: 42.4 Code : 66882-4 Heart Rate 1 : 104 bpm Height: 5'2" Weight: 232 lbs 09/10/2013 Blood Pressure 1: 112/62 Code : 8480-6 Heart Rate 1: 88 bpm Weight: 238 lbs 08/19/2013 Blood Pressure 1: 102/58 Code : 8480-6 BMI: 43.7 Code : 43660-6 Heart Rate 1 : 80 bpm Height: 5'2" Weight: 239 lbs 08/12/2013 Blood Pressure 1: 110/60 Code : 8480-6 BMI: 43.3 Code : 09322-0 Heart Rate 1 : 90 bpm Height: 5'2" SpO2: 96% Weight: 236 lbs 8 oz 08/01/2013 Blood Pressure 1: 128/72 Code : 8480-6 BMI: 42.6 Code : 67628-0 Heart Rate 1 : 78 bpm Height: 5'2" SpO2: 97% Weight: 233 lbs 07/19/2013 Blood Pressure 1: 100/60 Code : 8480-6 BMI: 44.3 Code : 25629-5 Heart Rate 1 : 92 bpm Height: 5'2" Temperature: 36.2 (C) / 97.2 (F) Weight: 242 lbs 07/15/2013 Blood Pressure 1: 180/92 Code : 8480-6 Heart Rate 1: 115 bpm SpO2: 98% Weight: 06/27/2013 Blood Pressure 1: 114/64 Code : 8480-6 BMI: 44.1 Code : 59800-3 Heart Rate 1 : 114 bpm Height: 5'2" SpO2: 93% Weight: 241 lbs 06/10/2013 Blood Pressure 1: 174/86 Code : 8480-6 BMI: 44.1 Code : 19257-3 Heart Rate 1 : 132 bpm Height: 5'2" SpO2: 94% Temperature: 35.6 (C) / 96.0 (F) Weight: 241 lbs 05/07/2013 Blood Pressure 1: 160/88 Code : 8480-6 BMI: 43.5 Code : 84287-7 Heart Rate 1 : 108 bpm Height: 5'2" SpO2: 96% Weight: 238 lbs 04/16/2013 Blood Pressure 1: 116/62 Code : 8480-6 BMI: 44.6 Code : 23979-1 Heart Rate 1 : 90 bpm Height: 5'2" SpO2: 94% Weight: 244 lbs 03/21/2013 Blood Pressure 1: 102/64 Code : 8480-6 BMI: 42.8 Code : 86620-0 Height: 5'2" Weight: 234 lbs 02/12/2013 Blood Pressure 1: 130/78 Code : 8480-6 BMI: 42.0 Code : 45322-9 Heart Rate 1 : 100 bpm Height: 5'2" Weight: 229 lbs 8 oz 02/04/2013 Blood Pressure 1: 126/68 Code : 8480-6 BMI: 44.3 Code : 31324-6 Heart Rate 1 : 88 bpm Height: 5'2" Weight: 242 lbs 01/17/2013 Blood Pressure 1: 132/76 Code : 8480-6 Heart Rate 1: 121 bpm SpO2: 97% Weight: 242 lbs 12/31/2012 Blood Pressure 1: 144/90 Code : 8480-6 BMI: 43.0 Code : 17835-8 Heart Rate 1 : 96 bpm Height: 5'2" Temperature: 36.2 (C) / 97.2 (F) Weight: 235 lbs 12/20/2012 Blood Pressure 1: 156/96 Code : 8480-6 BMI: 42.4 Code : 73756-9 Heart Rate 1 : 96 bpm Height: [...] Code : 8480-6 BMI: 38.8 Code : 67175-8 Heart Rate 1 : 96 bpm Height: 5'2" Temperature: 36.3 (C) / 97.3 (F) Weight: 212 lbs 08/23/2012 Blood Pressure 1: 116/72 Code : 8480-6 BMI: 38.3 Code : 18153-5 Heart Rate 1 : 92 bpm Height: 5'2" Weight: 209 lbs 8 oz 08/13/2012 Blood Pressure 1: 140/92 Code : 8480-6 BMI: 37.3 Code : 17761-9 Heart Rate 1 : 104 bpm Height: 5'2" Weight: 204 lbs 08/07/2012 Blood Pressure 1: 148/98 Code : 8480-6 BMI: 36.6 Code : 25325-3 Heart Rate 1 : 102 bpm Height: [...] Code : 8480-6 BMI: 35.3 Code : 92095-8 Heart Rate 1 : 105 bpm Height: [...] december - she was seen by her payment processor again in mid 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 She states that she saw her payment processor and was to be started on another [...] Factors medication 09/10/2013 went to [facility] on Monday and start on [...] differently. States she did eat BBQ from [employer] yesterday for lunch. hypertension Quality [...] data Encounters Encounter Performer Location Codes Date ([id number]) 21259 EST. PATIENT, LEVEL IV Diagnosis: Essential (primary) hypertension[ICD10: I10] Diagnosis: Type 2 diabetes mellitus with hyperglycemia[ICD10: E11.65] Diagnosis: Generalized anxiety disorder[ICD10: F41.1] Diagnosis: Weakness[ICD10: R53.1] Rika Motta MD, [facility] CPT-4: 42117 04/10/2018 ([id number]) 35014 EST. PATIENT, LEVEL IV Diagnosis: Type 2 diabetes mellitus with hyperglycemia[ICD10: E11.65] Diagnosis: Low back pain[ICD10: M54.5] Diagnosis: Essential (primary) hypertension[ICD10: I10] Diagnosis: Generalized anxiety disorder[ICD10: F41.1] [facility] CPT-4: 41312 03/12/2018 [id number]) 77499 EST. PATIENT, LEVEL III Diagnosis: Type 2 diabetes mellitus with hyperglycemia[ICD10: E11.65] Diagnosis: Essential (primary) hypertension[ICD10: I10] Diagnosis: Dysuria[ICD10: R30.0] Diagnosis: Vitamin D deficiency, unspecified[ICD10: E55.9] Diagnosis: Low back pain[ICD10: M54.5] Rika Motta MD, [facility] CPT-4: 58190 02/20/2018 ([id number]) 40757 EST. PATIENT, LEVEL III Diagnosis: Dysuria[ICD10: R30.0] Diagnosis: Essential (primary) hypertension[ICD10: I10] Rika Motta MD, [facility] CPT-4: 33606 11/27/2017 ([id number]) 93970 EST. PATIENT, LEVEL III Diagnosis: Type 2 diabetes mellitus with hyperglycemia[ICD10: E11.65] Diagnosis: Chronic pain syndrome[ICD10: G89.4] Rika Motta MD, [facility] CPT-4: 48980 09/15/2017 ([id number]) 09775 EST. 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 PATIENT, LEVEL III Diagnosis: Chronic maxillary sinusitis[ICD10: J32.0] Diagnosis: Type 2 diabetes mellitus with hyperglycemia[ICD10: E11.65] Diagnosis: Hordeolum externum left upper eyelid[ICD10: H00.014] Rika Motta MD, [facility] CPT-4: 95864 08/03/2017 ([id number]) 00222 EST. PATIENT, LEVEL IV Diagnosis: Type 2 diabetes mellitus with hyperglycemia[ICD10: E11.65] Diagnosis: Hordeolum externum left upper eyelid[ICD10: H00.014] Diagnosis: Essential (primary) hypertension[ICD10: I10] Diagnosis: Chronic obstructive pulmonary disease, unspecified[ICD10: J44.9] Rika Motta MD, [facility] CPT-4: 89043 07/27/2017 ([id number]) 37424 EST. PATIENT, LEVEL IV Diagnosis: Type 2 diabetes mellitus with hyperglycemia[ICD10: E11.65] Diagnosis: Essential (primary) hypertension[ICD10: I10] Tessie Motta MD, [facility] CPT-4: 41245 06/13/2017 51905 EST. PATIENT, LEVEL IV Diagnosis: Periapical abscess without sinus[ICD10: K04.7] Arlette Motta MD, [facility] CPT-4: 82707 04/21/2017 ([id number]) 65184 EST. PATIENT, LEVEL IV Diagnosis: Type 2 diabetes mellitus with hyperglycemia[ICD10: E11.65] Diagnosis: Cellulitis of abdominal wall[ICD10: L03.311] Diagnosis: Chronic pain syndrome[ICD10: G89.4] Diagnosis: Essential (primary) hypertension[ICD10: I10] Diagnosis: Unsteadiness on feet[ICD10: R26.81] Rika Motta MD, [facility] CPT-4: 79641 04/18/2017 ([id number]) 19680 EST. PATIENT, LEVEL IV Diagnosis: Type 2 diabetes mellitus with hyperglycemia[ICD10: E11.65] Diagnosis: Hypokalemia[ICD10: E87.6] Diagnosis: Essential (primary) hypertension[ICD10: I10] Diagnosis: Paroxysmal atrial fibrillation[ICD10: I48.0] Rika Motta MD, [facility] CPT-4: 92086 03/27/2017 ([id number]) 55881 EST. PATIENT, LEVEL IV Diagnosis: Essential (primary) hypertension[ICD10: I10] Diagnosis: Type 2 diabetes mellitus with hyperglycemia[ICD10: E11.65] Diagnosis: Hypokalemia[ICD10: E87.6] Diagnosis: Generalized abdominal pain[ICD10: R10.84] Rika Motta MD, [facility] CPT-4: 17951 02/27/2017 ([id number]) 51649 EST. PATIENT, LEVEL III Diagnosis: Drug induced constipation[ICD10: K59.03] Rika Motta MD, [facility] CPT-4: 10242 02/21/2017 ([id number]) 65336 EST. PATIENT, LEVEL IV Diagnosis: Generalized abdominal pain[ICD10: R10.84] Diagnosis: Hypokalemia[ICD10: E87.6] Diagnosis: Hypomagnesemia[ICD10: E83.42] Rika Motta MD, [facility] CPT-4: 82731 02/17/2017 ([id number]) 46204 EST. PATIENT, LEVEL IV Diagnosis: Paroxysmal atrial fibrillation[ICD10: I48.0] Diagnosis: Essential (primary) hypertension[ICD10: I10] Diagnosis: Chronic obstructive pulmonary disease, unspecified[ICD10: J44.9] Diagnosis: Type 2 diabetes mellitus with hyperglycemia[ICD10: E11.65] Diagnosis: Diarrhea, unspecified[ICD10: R19.7] Rika Motta MD, [facility] CPT-4: 16395 02/13/2017 ([id number]) 66459 EST. PATIENT, LEVEL IV Diagnosis: Type 2 diabetes mellitus with hyperglycemia[ICD10: E11.65] Diagnosis: Pain in right shoulder[ICD10: M25.511] Diagnosis: Chronic maxillary sinusitis[ICD10: J32.0] Rika Motta MD, [facility] CPT-4: 47581 01/30/2017 ([id number]) 25190 EST. PATIENT, LEVEL IV Diagnosis: Essential (primary) hypertension[ICD10: I10] Diagnosis: Type 2 diabetes mellitus with hyperglycemia[ICD10: E11.65] Diagnosis: Hypothyroidism, unspecified[ICD10: E03.9] Diagnosis: Generalized anxiety disorder[ICD10: F41.1] Diagnosis: Chronic pain syndrome[ICD10: G89.4] Diagnosis: Restless legs syndrome[ICD10: G25.81] Diagnosis: Obstructive sleep apnea (adult) (pediatric)[ICD10: G47.33] Rika Motta MD, [facility] CPT-4: 64656 01/16/2017 78353 EST. PATIENT, LEVEL IV Diagnosis: Other acute sinusitis[ICD10: J01.80] Diagnosis: Diplopia[ICD10: H53.2] Arlette Motta MD, [facility] CPT-4: 70598 12/13/2016 ([id number]) 58058 EST. PATIENT, LEVEL IV Diagnosis: Essential (primary) hypertension[ICD10: I10] Diagnosis: Fasciculation[ICD10: R25.3] Diagnosis: Generalized anxiety disorder[ICD10: F41.1] Diagnosis: Other obesity due to excess calories[ICD10: E66.09] Diagnosis: Zoster without complications[ICD10: B02.9] Diagnosis: Unilateral primary osteoarthritis, right knee[ICD10: M17.11] Diagnosis: Unsteadiness on feet[ICD10: R26.81] Rika Motta MD, [facility] CPT-4: 71869 11/11/2016 ([id number]) 52838 EST. PATIENT, LEVEL IV Diagnosis: Zoster without complications[ICD10: B02.9] Diagnosis: Type 2 diabetes mellitus with hyperglycemia[ICD10: E11.65] Diagnosis: Vomiting, unspecified[ICD10: R11.10] Rika Motta MD, [facility] CPT-4: 66616 10/28/2016 ([id number]) 70416 EST. PATIENT, LEVEL III Diagnosis: Pain in right knee[ICD10: M25.561] Diagnosis: Zoster without complications[ICD10: B02.9] Rika Motta MD, [facility] CPT-4: 52256 10/13/2016 ([id number]) 53074 EST. PATIENT, LEVEL IV Diagnosis: Acute recurrent maxillary sinusitis[ICD10: J01.01] Diagnosis: Low back pain[ICD10: M54.5] Diagnosis: Pain in right knee[ICD10: M25.561] Diagnosis: Allergic rhinitis due to pollen[ICD10: J30.1] Rika Motta MD, [facility] CPT-4: 43982 09/23/2016 ([id number]) 60629 EST. PATIENT, LEVEL IV Diagnosis: Pain in right shoulder[ICD10: M25.511] Diagnosis: Type 2 diabetes mellitus with hyperglycemia[ICD10: E11.65] Diagnosis: Cervicalgia[ICD10: M54.2] Diagnosis: Candidiasis of skin and nail[ICD10: B37.2] Diagnosis: Low back pain[ICD10: M54.5] Rika Motta MD, [facility] CPT-4: 06476 09/13/2016 ([id number]) 62910 EST. 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 PATIENT, LEVEL IV Diagnosis: Type 2 diabetes mellitus with hyperglycemia[ICD10: E11.65] Diagnosis: Candidiasis of skin and nail[ICD10: B37.2] Diagnosis: Chronic obstructive pulmonary disease, unspecified[ICD10: J44.9] Diagnosis: Paroxysmal atrial fibrillation[ICD10: I48.0] Diagnosis: Pneumonia, unspecified organism[ICD10: J18.9] Rika Motta MD, [facility] CPT-4: 63931 07/26/2016 ([id number]) 56085 EST. PATIENT, LEVEL IV Diagnosis: Type 2 diabetes mellitus with hyperglycemia[ICD10: E11.65] Diagnosis: Generalized anxiety disorder[ICD10: F41.1] Diagnosis: Essential (primary) hypertension[ICD10: I10] Diagnosis: Chronic pain syndrome[ICD10: G89.4] Rika Motta MD, [facility] CPT-4: 94112 05/24/2016 ([id number]) [id number] EST. PATIENT, LEVEL IV Diagnosis: Menopausal and female climacteric states[ICD10: N95.1] Diagnosis: Type 2 diabetes mellitus with hyperglycemia[ICD10: E11.65] Diagnosis: Generalized anxiety disorder[ICD10: F41.1] Rika Motta MD, [facility] CPT-4: 32938 04/19/2016 ([id number]) [id number] EST. PATIENT, LEVEL IV Diagnosis: Type 2 diabetes mellitus with hyperglycemia[ICD10: E11.65] Diagnosis: Generalized anxiety disorder[ICD10: F41.1] Diagnosis: Essential (primary) hypertension[ICD10: I10] Diagnosis: Dysuria[ICD10: R30.0] Rika Motta MD, [facility] CPT-4: 37579 04/11/2016 ([id number]) 37053 EST. PATIENT, LEVEL IV Diagnosis: Generalized anxiety disorder[ICD10: F41.1] Diagnosis: Major depressive disorder, single episode, mild[ICD10: F32.0] Diagnosis: Hypothyroidism, unspecified[ICD10: E03.9] Diagnosis: Type 2 diabetes mellitus with hyperglycemia[ICD10: E11.65] Rika Motta MD, [facility] CPT-4: 91681 03/21/2016 ([id number]) [id number] EST. PATIENT, LEVEL IV Diagnosis: Type 2 diabetes mellitus with hyperglycemia[ICD10: E11.65] Diagnosis: Cellulitis of right lower limb[ICD10: L03.115] Diagnosis: Other elevated white blood cell count[ICD10: D72.828] Diagnosis: Localized edema[ICD10: R60.0] Rika Motta MD, [facility] CPT-4: 03445 03/11/2016 ([id number]) [id number] EST. PATIENT, LEVEL IV Diagnosis: Type 2 diabetes mellitus with hyperglycemia[ICD10: E11.65] Diagnosis: Localized edema[ICD10: R60.0] Diagnosis: Other conjunctivitis[ICD10: H10.89] Diagnosis: Obstructive sleep apnea (adult) (pediatric)[ICD10: G47.33] Diagnosis: Unspecified asthma, uncomplicated[ICD10: J45.909] Diagnosis: VAC STREP PNEUMONIAE-FLU[ICD10: Z23] Rika Motta MD, [facility] CPT-4: 01987 02/26/2016 ([id number]) 64922 EST. PATIENT, LEVEL IV Diagnosis: Essential (primary) hypertension[ICD10: I10] Diagnosis: Paroxysmal atrial fibrillation[ICD10: I48.0] Diagnosis: Type 2 diabetes mellitus with hyperglycemia[ICD10: E11.65] Diagnosis: Obstructive sleep apnea (adult) (pediatric)[ICD10: G47.33] Diagnosis: Chronic obstructive pulmonary disease, unspecified[ICD10: J44.9] Rika Motta MD, [facility] CPT-4: 11248 02/02/2016 ([id number]) 75997 EST. 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 PATIENT, LEVEL IV Diagnosis: Type 2 diabetes mellitus with hyperglycemia[ICD10: E11.65] Diagnosis: Generalized anxiety disorder[ICD10: F41.1] Diagnosis: Essential (primary) hypertension[ICD10: I10] Diagnosis: Restless legs syndrome[ICD10: G25.81] Diagnosis: Dysuria[ICD10: R30.0] Rika Motta MD, [facility] CPT-4: 41020 11/27/2015 86713 EST. PATIENT, LEVEL IV Diagnosis: Addisonian crisis[ICD10: E27.2] Arlette Motta MD, [facility] CPT-4 : 09611 11/12/2015 47272 EST. PATIENT, LEVEL IV Diagnosis: Acute bronchitis due to other specified organisms[ICD10: J20.8] Diagnosis: Other acute sinusitis[ICD10: J01.80] Diagnosis: Other malaise[ICD10: R53.81] Diagnosis: Cough[ICD10: R05] Arlette Motta MD, [facility] CPT-4: 95206 11/10/2015 05524 EST. PATIENT, LEVEL IV Diagnosis: Pain in left knee[ICD10: M25.562] Diagnosis: Cellulitis of right toe[ICD10: L03.031] Arlette Motta MD, [facility] CPT-4: 35858 10/27/2015 ([id number]) 42524 EST. PATIENT, LEVEL IV Diagnosis: Essential (primary) hypertension[ICD10: I10] Diagnosis: Localized edema[ICD10: R60.0] Diagnosis: Type 2 diabetes mellitus with hyperglycemia[ICD10: E11.65] Rika Motta MD, [facility] CPT-4: 27641 09/22/2015 ([id number]) 75434 EST. PATIENT, LEVEL IV Diagnosis: Essential (primary) hypertension[ICD10: I10] Diagnosis: Type 2 diabetes mellitus with hyperglycemia[ICD10: E11.65] Diagnosis: Cellulitis of right toe[ICD10: L03.031] Rika Motta MD, [facility] CPT-4: 78068 09/01/2015 ([id number]) 43733 EST. PATIENT, LEVEL IV Diagnosis: Type 2 diabetes mellitus with hyperglycemia[ICD10: E11.65] Diagnosis: Essential (primary) hypertension[ICD10: I10] Diagnosis: Generalized anxiety disorder[ICD10: F41.1] Diagnosis: Hypothyroidism, unspecified[ICD10: E03.9] Diagnosis: Body mass index (BMI) 40.0-44.9, adult[ICD10: Z68.41] Rika Motta MD, [facility] CPT-4: 41796 08/10/2015 05205 EST. PATIENT, LEVEL IV Diagnosis: Acute bronchitis due to other specified organisms[ICD10: J20.8] Diagnosis: Pain in left knee[ICD10: M25.562] Diagnosis: Type 2 diabetes mellitus with hyperglycemia[ICD10: E11.65] Arlette Motta MD, [facility] CPT-4: 39977 06/26/2015 ([id number]) 59183 EST. PATIENT, LEVEL IV Diagnosis: Cellulitis of right lower limb[ICD10: L03.115] Diagnosis: Type 2 diabetes mellitus with hyperglycemia[ICD10: E11.65] Diagnosis: Essential (primary) hypertension[ICD10: I10] Diagnosis: Edema, unspecified[ICD10: R60.9] Rika Motta MD, [facility] CPT-4: 09490 04/14/2015 ([id number]) 70348 EST. PATIENT, LEVEL IV Diagnosis: Essential (primary) hypertension[ICD10: I10] Diagnosis: Type 2 diabetes mellitus with hyperglycemia[ICD10: E11.65] Diagnosis: Localized edema[ICD10: R60.0] Diagnosis: Dysuria[ICD10: R30.0] Rika Motta MD, [facility] CPT-4: 89505 03/03/2015 ([id number]) 11293 EST. PATIENT, LEVEL III Diagnosis: Blister of leg[ICD9: 916.2] Diagnosis: Rash[ICD9: 782.1] Diagnosis: EDEMA[ICD9: 782.3] Tessie Motta MD, [facility] CPT-4: 18520 01/15/2015 ([id number]) 65686 EST. PATIENT, LEVEL IV Diagnosis: Cellulitis, leg[ICD9: 682.6] Diagnosis: DIABETES TYPE II[ICD9: 250.00] Tessie Motta MD, [facility] CPT- 4: 04360 01/01/2015 ([id number]) Miscellaneous no charge Diagnosis: CVA (cerebral vascular accident)[ICD9: 434.91] Isabella Mart Tessie Motta MD, [facility] CPT-4: 25034 12/25/2014 ([id number]) 15018 EST. PATIENT, LEVEL IV Diagnosis: ESSENTIAL HYPERTENSION[ICD9: 401.9] Diagnosis: DM W/O COMPLICATION TYPE II, UNCONTROLLED[ICD9: 250.02] Diagnosis: EDEMA[ICD9: 782.3] Diagnosis: Dysuria[ICD9: 788.1] Rika Motta MD, [facility] CPT-4: 47044 11/04/2014 ([id number]) 00428 EST. PATIENT, LEVEL IV Diagnosis: EDEMA[ICD9: 782.3] Diagnosis: Cellulitis of right leg[ICD9: 682.6] Diagnosis: Allergic rhinitis[ICD9: 477.9] Rika Motta MD, [facility] CPT-4: 54770 09/08/2014 ([id number]) 09987 EST. PATIENT, LEVEL IV Diagnosis: EDEMA[ICD9: 782.3] Diagnosis: ESSENTIAL HYPERTENSION[ICD9: 401.9] Diagnosis: DIABETES TYPE II[ICD9: 250.00] Diagnosis: Cellulitis of right leg[ICD9: 682.6] Rika Motta MD, [facility] CPT-4: 75921 08/29/2014 ([id number]) 38869 EST. PATIENT, LEVEL III Diagnosis: EDEMA[ICD9: 782.3] Diagnosis: DIABETES TYPE II[ICD9: 250.00] Tessie Motta MD, [facility] CPT- 4: 98553 06/30/2014 ([id number]) 61552 EST. PATIENT, LEVEL IV Diagnosis: EDEMA[ICD9: 782.3] Diagnosis: DM W/O COMPLICATION TYPE II, UNCONTROLLED[ICD9: 250.02] Diagnosis: Sciatica[ICD9: 724.3] Tessie Motta MD, [facility] CPT-4: 19561 06/12/2014 ([id number]) 84694 EST. PATIENT, LEVEL III Diagnosis: Cellulitis, leg[ICD9: 682.6] Diagnosis: EDEMA[ICD9: 782.3] Rika Motta MD, [facility] CPT-4: 50476 05/26/2014 ([id number]) 10776 EST. PATIENT, LEVEL IV Diagnosis: DIABETES TYPE II[ICD9: 250.00] Diagnosis: Chronic sinusitis[ICD9: 473.9] Tessie Motta MD, [facility] CPT- 4: 72086 04/15/2014 ([id number]) 67576 EST. PATIENT, LEVEL IV Diagnosis: DM W/O COMPLICATION TYPE II, UNCONTROLLED[ICD9: 250.02] Diagnosis: CHRONIC SINUSITIS[ICD9: 473.9] Diagnosis: EDEMA[ICD9: 782.3] Diagnosis: Right knee pain[ICD9: 719.46] Rika Motta MD, [facility] CPT-4: 98087 03/25/2014 ([id number]) 44911 EST. PATIENT, LEVEL IV Diagnosis: Blister of leg[ICD9: 916.2] Diagnosis: EDEMA[ICD9: 782.3] Diagnosis: DM W/O COMPLICATION TYPE II, UNCONTROLLED[ICD9: 250.02] Diagnosis: ESSENTIAL HYPERTENSION[ICD9: 401.9] Rika Motta MD, [facility] CPT-4: 79533 03/03/2014 ([id number]) 51871 EST. PATIENT, LEVEL IV Diagnosis: CELLULITIS OF LEG[ICD9: 682.6] Diagnosis: Diabetes mellitus type 2, uncontrolled[ICD9: 250.02] Diagnosis: ESSENTIAL HYPERTENSION[ICD9: 401.9] Diagnosis: EDEMA[ICD9: 782.3] Tessie Motta MD, [facility] CPT-4: 81589 02/13/2014 (05904) 23742 EST. PATIENT, LEVEL IV Diagnosis: Diabetes mellitus type 2, uncontrolled[ICD9: 250.02] Tessie Motta MD, [facility] CPT-4: 28355 01/27/2014 ([id number]) 37166 EST. PATIENT, LEVEL III Diagnosis: OPEN WND KNEE/LEG/ANKLE[ICD9: 891.0] Diagnosis: EDEMA[ICD9: 782.3] Rika Motta MD, [facility] CPT-4: 29506 12/26/2013 ([id number]) 75269 EST. PATIENT, LEVEL III Diagnosis: Cellulitis of right leg[ICD9: 682.6] Diagnosis: OPEN WND KNEE/LEG/ANKLE[ICD9: 891.0] Rika Motta MD [facility] CPT-4: 97220 12/12/2013 ([id number]) 77704 EST. PATIENT, LEVEL IV Diagnosis: Asthma exacerbation[ICD9: 493.92] Diagnosis: COUGH[ICD9: 786.2] Diagnosis: EDEMA[ICD9: 782.3] Rika Motta MD, [facility] CPT-4: 68085 11/14/2013 ([id number]) 48084 EST. PATIENT, LEVEL III Diagnosis: OPEN WND KNEE/LEG/ANKLE[ICD9: 891.0] Diagnosis: EDEMA[ICD9: 782.3] Rika Motta MD, [facility] CPT-4: 33671 10/21/2013 ([id number]) 82904 EST. PATIENT, LEVEL IV Diagnosis: ESSENTIAL HYPERTENSION[SNOMED: 89258380] Diagnosis: Right knee pain[ICD9: 719.46] Diagnosis: OPEN WND KNEE/LEG/ANKLE[ICD9: 891.0] Rika Motta MD, [facility] CPT-4: 02057 10/03/2013 ([id number]) Miscellaneous no charge Diagnosis: Open wound of leg[ICD9: 891.0] Rika Motta MD [facility] CPT-4: 10371 09/27/2013 69300 EST. PATIENT, LEVEL II Diagnosis: Open wound of leg[ICD9: 891.0] Diagnosis: Wrist pain, left[ICD9: 719.43] Rika Motta MD [facility] CPT-4: 35805 09/23/2013 ([id number]) 11134 EST. PATIENT, LEVEL IV Diagnosis: CELLULITIS OF LEG[ICD9: 682.6] Diagnosis: ESSENTIAL HYPERTENSION[SNOMED: 17992289] Diagnosis: EDEMA[ICD9: 782.3] Rika Motta MD, [facility] CPT-4: 21004 09/20/2013 ([id number]) 26006 EST. PATIENT, LEVEL IV Diagnosis: Open wound of right lower leg[ICD9: 891.0] Diagnosis: DM W/O COMPLICATION TYPE II, UNCONTROLLED[SNOMED: 29328187] Diagnosis: Edema[ICD9: 782.3] Rika Motta MD [facility] CPT-4: 81968 09/10/2013 ([id number]) 41517 EST. PATIENT, LEVEL III Diagnosis: DM W/O COMPLICATION TYPE II, UNCONTROLLED[SNOMED: 05627305] Diagnosis: EDEMA[ICD9: 782.3] Tessie Motta MD [facility] CPT-4: 97918 08/19/2013 ([id number]) 12708 EST. PATIENT, LEVEL IV Diagnosis: EDEMA[ICD9: 782.3] Diagnosis: DIABETES TYPE II[SNOMED: 026864252] Diagnosis: HYPOTHYROIDISM[ICD9: 244.9] Diagnosis: LUMBAGO[ICD9: 724.2] Diagnosis: SCIATICA[ICD9: 724.3] Tessie Motta MD, [facility] CPT-4: 39489 08/12/2013 ([id number]) 31687 EST. PATIENT, LEVEL IV Diagnosis: DIABETES TYPE II[SNOMED: 006979201] Diagnosis: EDEMA[ICD9: 782.3] Diagnosis: HYPOTHYROIDISM[ICD9: 244.9] Diagnosis: Encounter for long-term (current) use of other medications[ICD9: V58.69] Diagnosis: LUMBAGO[ICD9: 724.2] Rika Motta MD [facility] CPT-4: 30383 08/01/2013 ([id number]) 74581 EST. PATIENT, LEVEL III Diagnosis: Blister of right foot[ICD9: 917.2] Riak Motta MD [facility] CPT-4: 96534 07/19/2013 ([id number]) 65706 EST. PATIENT, LEVEL III Diagnosis: Cellulitis of right leg[ICD9: 682.6] Diagnosis: ESSENTIAL HYPERTENSION[SNOMED: 36266111] Diagnosis: EDEMA[ICD9: 782.3] Rika Motta MD, [facility] CPT-4: 01842 07/15/2013 ([id number]) 11811 EST. PATIENT, LEVEL IV Diagnosis: DIABETES TYPE II[SNOMED: 346631784] Diagnosis: BACKACHE[ICD9: 724.5] Diagnosis: Muscle spasms of neck[ICD9: 728.85] Tessie Motta MD, [facility] CPT-4: 89992 06/27/2013 ([id number]) 99704 EST. PATIENT, LEVEL IV Diagnosis: DM W/O COMPLICATION TYPE II, UNCONTROLLED[SNOMED: 82457650] Diagnosis: EDEMA[ICD9: 782.3] Diagnosis: OBESITY[ICD9: 278.00] Diagnosis: WHEEZING[ICD9: 786.07] Tessie Motta MD, [facility] CPT-4: 87491 06/10/2013 ([id number]) 15067 EST. PATIENT, LEVEL IV Diagnosis: CHRONIC SINUSITIS[ICD9: 473.9] Diagnosis: WHEEZING[ICD9: 786.07] Diagnosis: ACUTE BRONCHITIS[ICD9: 466.0] Diagnosis: Back pain[ICD9: 724.5] Tessie Motta MD, [facility] CPT-4: 42091 05/07/2013 ([id number]) 66392 EST. PATIENT, LEVEL IV Diagnosis: EDEMA[ICD9: 782.3] Diagnosis: COPD (chronic obstructive pulmonary disease) with acute bronchitis[ ICD9: 491.22] Tessie Motta MD, [facility] CPT-4: 74511 04/16/2013 ([id number]) 49204 EST. PATIENT, LEVEL IV Diagnosis: Lumbago[ICD9: 724.2] Diagnosis: DM W/O COMPLICATION TYPE II, UNCONTROLLED[SNOMED: 07490962] Diagnosis: EDEMA[ICD9: 782.3] Rika Motta MD, [facility] CPT-4: 36717 03/21/2013 ([id number]) 55286 EST. PATIENT, LEVEL IV Diagnosis: Abdominal pain[ICD9: 789.00] Diagnosis: EDEMA[ICD9: 782.3] Diagnosis: DIABETES TYPE II[SNOMED: 952119547] Tessie Motta MD, [facility] CPT-4: 69493 02/12/2013 ([id number]) 20143 EST. PATIENT, LEVEL III Diagnosis: EDEMA[ICD9: 782.3] Diagnosis: RESPIRATORY ABNORM NEC[ICD9: 786.09] Tessie Motta MD, [facility] CPT-4: 36062 02/04/2013 ([id number]) 99463 EST. PATIENT, LEVEL IV Diagnosis: Edema[ICD9: 782.3] Diagnosis: ESSENTIAL HYPERTENSION[SNOMED: 84342495] Tessie Motta MD [facility] CPT-4: 53954 01/17/2013 ([id number]) 31109 EST. PATIENT, LEVEL IV Diagnosis: ESSENTIAL HYPERTENSION[SNOMED: 25849742] Diagnosis: Diabetic leg ulcer[ICD9: 250.80] Diagnosis: Callus[ICD9: 700] Diagnosis: Urinary urgency[ICD9: 788.63] Diagnosis: HYPOTHYROIDISM[ICD9: 244.9] Rika Motta MD, [facility] CPT-4: 70906 12/31/2012 ([id number]) 60638 EST. PATIENT, LEVEL IV Diagnosis: Cellulitis of left leg[ICD9: 682.6] Diagnosis: DIABETES TYPE II[SNOMED: 232876662] Diagnosis: ESSENTIAL HYPERTENSION[SNOMED: 40337250] Diagnosis: EDEMA[ICD9: 782.3] Rika Motta MD, [facility] CPT-4: 97180 12/20/2012 ([id number]) 80959 EST. PATIENT, LEVEL III Diagnosis: Acute bronchitis[ICD9: 466.0] Diagnosis: COUGH[ICD9: 786.2] Tessie Motta MD [facility] CPT-4: 58693 10/29/2012 ([id number]) 12062 EST. PATIENT, LEVEL IV Diagnosis: ESSENTIAL HYPERTENSION[SNOMED: 47524932] Diagnosis: DIABETES TYPE II[SNOMED: 404520210] Diagnosis: HYPOTHYROIDISM[ICD9: 244.9] Tessie Motta MD, [facility] CPT- 4: 53247 09/06/2012 ([id number]) 38010 EST. PATIENT, LEVEL IV Diagnosis: DIABETES TYPE II[SNOMED: 097840193] Diagnosis: ESSENTIAL HYPERTENSION[SNOMED: 80802994] Diagnosis: Diarrhea[ICD9: 787.91] Tessie Motta MD, [facility] CPT-4: 39814 08/23/2012 ([id number]) 38249 EST. PATIENT, LEVEL III Diagnosis: ESSENTIAL HYPERTENSION[SNOMED: 05289938] Diagnosis: Gastroenteritis[ICD9: 558.9] Rika Motta MD [facility] CPT-4: 60244 08/13/2012 ([id number]) 75255 EST. PATIENT, LEVEL IV Diagnosis: Diarrhea[ICD9: 787.91] Diagnosis: ESSENTIAL HYPERTENSION[SNOMED: 29288098] Diagnosis: DM W/O COMPLICATION TYPE II, UNCONTROLLED[SNOMED: 41051968] Rika Motta MD [facility] CPT-4: 43899 08/07/2012 ([id number]) 82695 EST. PATIENT, LEVEL III Diagnosis: Acute sinusitis[ICD9: 461.9] Diagnosis: Thrush[ICD9: 112.0] Rika Motta MD [facility] CPT-4: 71081 07/06/2012 ([id number]) 12546 EST. PATIENT, LEVEL IV Diagnosis: ESSENTIAL HYPERTENSION[SNOMED: 35442449] Diagnosis: DIABETES TYPE II[SNOMED: 248311642] Tessie Motta MD [facility] CPT-4: 32392 06/07/2012 ([id number]) 28465 EST. PATIENT, LEVEL IV Diagnosis: ESSENTIAL HYPERTENSION[SNOMED: 91181636] Diagnosis: ACUTE SINUSITIS[ICD9: 461.9] Diagnosis: Labial cyst[ICD9: 624.8] Tessie Motta MD [facility] CPT-4: 49413 05/28/2012 ([id number]) 43360 EST. PATIENT, LEVEL IV Diagnosis: ESSENTIAL HYPERTENSION[SNOMED: 67746618] Diagnosis: EDEMA[ICD9: 782.3] Tessie Motta MD [facility] CPT-4: 00183 05/17/2012 ([id number]) 65163 EST. PATIENT, LEVEL IV Diagnosis: EDEMA[ICD9: 782.3] Diagnosis: ESSENTIAL HYPERTENSION[SNOMED: 94806882] Diagnosis: Diarrhea[ICD9: 787.91] Diagnosis: ALLERGIC RHINITIS[ICD9: 477.9] Tessie Motta MD [facility] CPT- 4: 77839 05/02/2012 ([id number]) 62578 EST. PATIENT, LEVEL IV Diagnosis: ACUTE SINUSITIS[ICD9: 461.9] Diagnosis: ESSENTIAL HYPERTENSION[SNOMED: 32985488] Diagnosis: ALLERGIC RHINITIS[ICD9: 477.9] Tessie Motta MD [facility] CPT- 4: 30601 04/10/2012 ([id number]) 19891 EST. PATIENT, LEVEL IV Diagnosis: ESSENTIAL HYPERTENSION[SNOMED: 29457334] Diagnosis: Foreign body in foot or toe[ICD9: 917.6] Diagnosis: EDEMA[ICD9: 782.3] Tessie Motta MD [facility] CPT-4: 69925 02/27/2012 (22288) 21899 EST. PATIENT, LEVEL IV Diagnosis: CELLULITIS OF FOOT[ICD9: 682.7] Diagnosis: DIABETES TYPE II[SNOMED: 145479499] Diagnosis: EDEMA[ICD9: 782.3] Tessie Motta MD [facility] CPT-4: 95638 02/15/2012 ([id number]) 34003 EST. PATIENT, LEVEL IV Diagnosis: EDEMA[ICD9: 782.3] Diagnosis: ESSENTIAL HYPERTENSION[SNOMED: 16312490] Diagnosis: ACUTE SINUSITIS[ICD9: 461.9] Diagnosis: Dysuria[ICD9: 788.1] Tessie Motta MD [facility] CPT-4: 51715 02/01/2012 ([id number]) 97348 EST. PATIENT, LEVEL IV Diagnosis: DIABETES TYPE II[SNOMED: 305272597] Diagnosis: Diverticulitis[ICD9: 562.11] Tessie Motta MD [facility] CPT- 4: 39858 12/14/2011 (22140) 09274 EST. PATIENT, LEVEL IV Diagnosis: Nausea vomiting and diarrhea[ICD9: 787.01] Diagnosis: ESSENTIAL HYPERTENSION[SNOMED: 31996137] Diagnosis: DM W/O COMPLICATION TYPE II, UNCONTROLLED[SNOMED: 87049663] Tessie Motta MD [facility] CPT-4: 90399 11/30/2011 ([id number]) 80882 EST. PATIENT, LEVEL IV Diagnosis: ESSENTIAL HYPERTENSION[SNOMED: 75807214] Diagnosis: DIABETES TYPE II[SNOMED: 851120177] Diagnosis: COUGH[ICD9: 786.2] Tessie Motta MD, [facility] CPT-4: 19663 11/17/2011 ([id number]) Patient admitted to the hospital from clinic (NO CHARGE) Diagnosis: Tachycardia[ICD9: 785.0] Diagnosis: Dyspnea[ICD9: 786.09] Diagnosis: Wheezing[ICD9: 786.07] Diagnosis: FALL AGAINST OBJECT[ICD9: E888.1] Diagnosis: ANXIETY STATE[ICD9: 300.00] Diagnosis: ESSENTIAL HYPERTENSION[SNOMED: 74773759] Diagnosis: Chronic depression[ICD9: 311] Diagnosis: Diabetes mellitus type 2, uncontrolled[SNOMED: 10695439] Tessie Motta MD, [facility] CPT-4: 18577O 11/03/2011 ([id number]) 34031 EST. PATIENT, LEVEL IV Diagnosis: DIABETES TYPE II[SNOMED: 284846040] Diagnosis: ANXIETY STATE[ICD9: 300.00] Diagnosis: DEPRESSIVE DISORDER NEC[ICD9: 311] Diagnosis: Ulcer of toe[ICD9: 707.15] Tessie Motta MD, [facility] CPT- 4: 03149 10/24/2011 ([id number]) 61560 EST. PATIENT, LEVEL IV Diagnosis: EDEMA[ICD9: 782.3] Diagnosis: ESSENTIAL HYPERTENSION[SNOMED: 12911271] Diagnosis: ANXIETY STATE[ICD9: 300.00] Tessie Motta MD, [facility] CPT- 4: 86413 09/26/2011 51431 EST. PATIENT, LEVEL IV Diagnosis: EDEMA[ICD9: 782.3] Diagnosis: ESSENTIAL HYPERTENSION[SNOMED: 26493773] Rika Motta MD, [facility] CPT-4: 40541 09/20/2011 ([id number]) 57288 EST. PATIENT, LEVEL IV Diagnosis: ACUTE SINUSITIS[ICD9: 461.9] Diagnosis: Allergic rhinitis[ICD9: 477.9] Diagnosis: Cough[ICD9: 786.2] Tessie Motta MD, [facility] CPT-4: 42280 09/01/2011 ([id number]) 47764 EST. PATIENT, LEVEL IV Diagnosis: Chronic sinusitis[ICD9: 473.9] Diagnosis: Anxiety, generalized[ICD9: 300.02] Tessie Motta MD, [facility] CPT-4: 02763 08/15/2011 63563 EST. PATIENT, LEVEL IV Diagnosis: ACUTE SINUSITIS[ICD9: 461.9] Diagnosis: Tachycardia[ICD9: 785.0] Diagnosis: Anxiety[ICD9: 300.00] Diagnosis: Dehydration[ICD9: 276.51] Diagnosis: Sciatica[ICD9: 724.3] Tessie Motta MD, [facility] CPT-4: 78086 08/09/2011 83505 EST. PATIENT, LEVEL IV Diagnosis: DIABETES TYPE II[SNOMED: 449757536] Diagnosis: Sciatica[ICD9: 724.3] Diagnosis: Yeast infection[ICD9: 112.9] Tessie Motta MD, [facility] CPT- 4: 53710 08/01/2011 ([id number]) 56343 EST. PATIENT, LEVEL IV Diagnosis: DIABETES TYPE II[SNOMED: 037123087] Diagnosis: ACUTE MAXILLARY SINUSITIS[ICD9: 461.0] Diagnosis: Fibromyalgia[ICD9: 729.1] Tessie Motta MD, [facility] CPT-4: 85750 06/20/2011 21316 EST. PATIENT, LEVEL IV Diagnosis: ESSENTIAL HYPERTENSION[SNOMED: 45278039] Diagnosis: DIABETES TYPE II[SNOMED: 192754109] Diagnosis: ACUTE MAXILLARY SINUSITIS[ICD9: 461.0] Tessie Motta MD, [facility] CPT-4: 94449 04/18/2011 Plan of Care Planned Activity Notes [...] and return Monday for removal of IPRO Orohguj-cpebfpattm-lq changes in medications-recommend counseling-patient refuses Weakness-patient is deconditioned-refuses PT -recommend patient start walking more 04/10/2018 Appointment: Rika Bello WPtel: [address] [place], [place] [phone] (15 min) Moderate 04/10/2018 Patient Education: Patient Medication Summary Completed 04/10/2018 Appointment: Costa Arlette [facility] (15 min) Moderate 03/21/2018 Appointment: Rika Bello WPtel: [address] [place], [place] [phone] (30 min) Complex 03/20/2018 Visit Plan: Hypertension [...] as directed 03/12/2018 Appointment: Rika Bello WPtel: [address] [place], [place] [phone] (15 min) Moderate 03/12/2018 Patient Education: Patient Medication Summary Completed 03/12/2018 Patient Education: Back Pain Completed 03/12/2018 Appointment: Rika Bello WPtel: [phone] [place] (30 min) Complex 03/08/2018 Appointment: Lab [...] refill 02/20/2018 Appointment: Rika Bello WPtel: [address] [phone] [place] (15 min) Moderate 02/20/2018 Patient Education: Patient Medication Summary Completed 02/20/2018 Patient Education: Back Pain Completed 02/20/2018 Patient Education: Patient Medication Summary Completed 02/20/2018 Care Plan: Iron Pending 02/20/2018 Appointment: Rika Bello WPtel: [phone] [place] (30 min) Complex 02/19/2018 Appointment: Rika Bello WPtel: 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 [place] (15 min) Moderate 11/27/2017 Patient Education: [...] Completed 10/27/2017 Care Plan: SCREENINGMAMMOGRAPHYDIGITAL LOINC : 28459-6 Pending 10/27/2017 Appointment: Arlette Skelton WPtel[facility] ([facility] min) Moderate 10/03/2017 Appointment: Arlette Skelton WPtel: [facility] (15 min) Moderate 10/02/2017 Appointment: Rika Bello WPtel: [phone] [place] (30 min) Complex 09/29/2017 Visit [...] acutely worsened. 09/27/2017 Appointment: Arlette Skelton WPtel: [facility] (30 min) Complex 09/27/2017 Patient Education: Patient Medication Summary Completed 09/27/2017 Care Plan: CT HEAD/BRAIN W/O DYE LOINC : 29926-1 Pending 09/27/2017 Visit Plan: DM-patient noncompliant with [...] over- medication. 09/15/2017 Appointment: Rika Bello WPtel: [address] [place], [place] [phone] [place] (30 min) Complex 09/15/2017 Patient Education: Patient Medication Summary Completed 09/15/2017 Appointment: Rika Bello WPtel: [address] [place], [place] [phone] [place] (30 min) Complex 09/12/2017 Appointment: Rika Bello WPtel: [address] [place], [place] [phone] [place] (30 min) Complex 09/07/2017 Visit Plan: Ozm-wytothbbgh-sg changes Anemia-check cbc today Dental infection-on clindamycin per Dr Bryant-start probiotics Also needs to monitor blood sugars closely 08/18/2017 App[facility]ment: [facility]el[facility] [phone] [phone] (30 min) Complex 08/18/2017 Patient Education: [...] not resolve 08/03/2017 App[facility]ment: [facility] [phone] [phone] (30 min) Complex 08/03/2017 Patient Education: [...] worsen 07/27/2017 Appointment: Rika Bello WPtel: [phone] [phone] [place] (30 min) Complex 07/27/2017 Patient Education: [...] medications 06/13/2017 App[facility]ment[facility] [facility] (15 min) Moderate 06/13/2017 Patient Education: Patient Medication Summary Completed 06/13/2017 Visit Plan: Dental abscess - will send RX - pt is to keep her appointment with her dentist - pt is to notify clinic if symptoms do not improve, if they worsen, or with any other acute changes, questions, or concerns. 04/21/2017 Appointment: Arlette Skelton WPtel: [phone] [facility] [place] (30 min) Complex 04/21/2017 Patient Education: [...] Q HS RESCHEDULE APPT WITH DR YANNA HoJceerlasu-[id number]-cw for bactroban ointment provided and instructed on use BFT-egtwnndazd-sd change in medications Mildly elevated liver enzymes-discussed with Dr motta-suspect due to gabapentin-will monitor levels Gait instability-again recommend patient use walker as well as PT 04/18/2017 Appointment: Rika Bello WPtel: [phone] [place] (30 min) Complex 04/18/2017 Patient [...] become less controlled. Low potassium- check labs MPG-ehtjaklfge-uf changes Afib-check digoxin level with labs Abdominal [...] become less controlled. Low potassium- check labs LAC-ndczmmnkmg-yp changes Afib-check digoxin level with labs Abdominal pain-refill levsin for prn use -call if pain uncontrolled 03/27/2017 Appointment: Rika Bello WPtel: [facility]3 [id number] [place] [address] (30 min) Complex 03/27/2017 Patient Education: Patient Medication Summary Completed 03/27/2017 Appointment: Rika Bello WPtel: [address] [place], [place] [phone] [place] [address] (30 min) Complex 03/24/2017 Visit Plan: Hypertension - well controlled - continue with current medications, continue with no added salt diet. Pt has been encouraged to exercise daily. The pt has been advised to call the office if there are any acute concerns about change in blood pressure readings at home. DM-uncontrolled- discussed strict diet and exercise with patient Low esvnfuhwo-clazvsgl-aknabfse to monitor Abd mlyw-kbhcggpm-bs changes 02/27/2017 Appointment: Rika Bello WPtel: [address] [place], [place] [phone] [place] [address] (30 min) Complex 02/27/2017 Patient Education: Patient [...] this regimen. 02/21/2017 Appointment: Rika Bello WPtel: [facility]3 [phone] (30 min) Complex 02/21/2017 Patient Education: Patient Medication Summary Completed 02/21/2017 Appointment: Rika Bello WPtel: [phone] (30 min) Complex 02/20/2017 Visit Plan: [...] labs on Monday02/17/2017 Appointment: Rika Bello WPtel: [address] [place], [place] [phone] (30 min) Complex 02/17/2017 Patient Education: Patient Medication Summary Completed 02/17/2017 Visit Plan: COPD-recent hospitalization with pneumonia- symptoms improved-discussed continuous oxygen use at home-appt with Dr Odonnell tomorrow Afib-check digoxin level-patient just finished zpack Diarrhea-continue probiotics-check stool if diarrhea persists DM-bring log to next appt 02/13/2017 Appointment: Rika Bello WPtel: [facility]5 [phone] (30 min) Complex 02/13/2017 Patient Education: Patient Medication Summary Completed 02/13/2017 Patient Education: Hypertension Completed 02/13/2017 Visit Plan: DM-very uncontrolled-refer to Dr Raines for management RIght shoulder and arm pain-fell 5 days ago-xray shoulder and arm Chronic sinusitis-RX for Dr Cervantes's compound gentamicin nasal spray 01/30/2017 Appointment: Rika Bello WPtel: [facility]5 [phone] (30 min) Complex 01/30/2017 Patient Education: Patient Medication Summary Completed 01/30/2017 Care Plan: Referral Order SNOMED-CT : [id number] Pending 01/30/2017 Visit Plan: Hypertension - well [...] every night DM-check Hgb A1C Hypothyroidism-check level Mrjbijo-ubkhctuhmr-pnd well controlled- increase cymbalta-recommend counseling 01/16/2017 Appointment: Rika Bello WPtel: [facility]5 [phone] (30 min) Complex 01/16/2017 Patient Education: Patient Medication Summary Completed 01/16/2017 Appointment: Rika Bello WPtel: [phone] (30 min) Complex 01/10/2017 Visit Plan: Sinusitis [...] or concerns. 12/13/2016 Appointment: Arlette Skelton WPtel: [facility]7 [facility] (30 min) Complex 12/13/2016 Patient Education: Patient [...] completely heal. 11/11/2016 Appointment: Rika Bello WPtel: [address] [place] [address] (30 min) Complex 11/11/2016 Patient Education: Patient Medication Summary Completed 11/11/2016 Care Plan: BMI Above normal followup SELF-MGMT EDUC & TRAIN 1 PT Pending 2016 Appointment: Rika Bello WPtel: [address] [place], [place] [phone] (30 min) Complex 11/08/2016 Visit Plan: Shingles-rash scabbed-no further treatment indicated-patient to call if pain uncontrolled N/V-check labs including UA DM- check labs today Thrush-RX for nystatin 10/28/2016 Appointment: Rika Bello WPtel: [facility]5 [phone] (30 min) Complex 10/28/2016 Patient Education: Patient Medication Summary Completed 10/28/2016 Patient Education: Obesity Completed 10/28/2016 Appointment: Rika Bello WPtel: [facility]6 [phone] (30 min) Complex 10/25/2016 Appointment: Lab Draw 10/21/2016 Patient Education: Patient Medication Summary Completed 10/21/2016 Visit Plan: Right knee pain-patient to schedule appt with Dr Allison Garcia-right arm-concerned for shingles-RX for acyclovir provided and instructed on use-call if symptoms do not resolve or if any worse. 10/13/2016 Appointment: Rika Bello WPtel: [address] [place], [place] [phone] (30 min) Complex 10/13/2016 Patient Education: Patient Medication Summary Completed 10/13/2016 Appointment: Rika Bello WPtel: [address] [place], [place] [phone] (30 min) Complex 10/11/2016 Appointment: Rika Bello WPtel: [facility]0 [place] [phone] [facility] - Annual Wellness Visit 10/04/2016 Visit [...] as directed. 09/23/2016 Appointment: Rika Bello WPtel: [facility]0 [address] (15 min) Moderate 09/23/2016 Patient Education: Patient [...] 09/13/2016 Care Plan: Referral Order SNOMED-CT : [id number] Pending 09/13/2016 Appointment: Rika Bello WPtel: [facility]5 [phone] (30 min) Complex 09/09/2016 Appointment: Rika Bello WPtel: [phone] (30 min) Complex 09/08/2016 Visit Plan: Hypertension [...] CBC 08/09/2016 Appointment: Rika Bello WPtel: [facility] [phone] (30 min) Complex 08/09/2016 Patient Education: [...] control. Yeast infection -rx for nystatin powder YCDS-glzrumisc-hmwdzh pneumonia -afib-patient is oxygen dependent due to severely compromised pulmonary and cardiac systems-will send orders to [facility] to continue oxygen 07/26/2016 Visit Plan: [...] control. Yeast infection -rx for nystatin powder FVRZ-buqmhvaah-krmryx pneumonia -afib-patient is oxygen dependent due to severely compromised pulmonary and cardiac systems-will send orders to [facility] to continue oxygen 07/26/2016 Visit Plan: [...] control. Yeast infection -rx for nystatin powder JMIQ-sxbusdkjs-lvyqls pneumonia -afib-patient is oxygen dependent due to severely compromised pulmonary and cardiac systems-will send orders to [facility] to continue oxygen 07/26/2016 Appointment: Rika Bello WPtel: [facility] [phone] [place] (30 min) Complex 07/26/2016 Patient Education: Patient Medication Summary Completed 07/26/2016 Appointment: Rika Bello WPtel: [address] [phone] [place] (30 min) Complex 07/22/2016 Appointment: Rika Bello WPtel: 101[address] [phone] [place] (30 min) Complex 07/18/2016 Appointment: Rika Bello WPtel: [address] [phone] (30 min) Complex 07/01/2016 Appointment: Lab Draw 06/24/2016 Patient Education: Patient Medication Summary Completed 06/24/2016 Appointment: Rika Bello WPtel: 1019 [phone] (30 min) Complex 2016 Visit Plan: Diabetes [...] 05/24/2016 Patient Education: Obesity Completed 05/24/2016 Appointment: Ace Rika WPtel: [phone] [place] (30 min) Complex 05/17/2016 Visit [...] glucose control. 04/19/2016 Appointment: Rika Bello WPtel: [facility]2 [facility] [place] [address] (30 min) Complex 04/19/2016 Patient Education: Patient Medication Summary Completed 04/19/2016 Patient Education: Obesity Completed 04/19/2016 Appointment: Rika Bello WPtel: [address] [facility] [place] [address] (30 min) Complex 04/18/2016 Visit Plan: Diabetes [...] to allow for greater blood glucose control. OJN-wikqiltcsl-mc changes in medications at this time. Dysuria-UA negative-needs pelvic exam due to pt c/o vaginal discharge 04/11/2016 Appointment: Rika Bello WPtel: [address] [facility] [place] [address] (30 min) Complex 04/11/2016 Patient Education: Patient Medication Summary Completed 04/11/2016 Patient Education: Obesity Completed 04/11/2016 Appointment: Rika Bello WPtel: [address] [facility] [place] [address] (30 min) Complex 04/08/2016 Visit Plan: Chronic [...] peripheral edema. 03/11/2016 Appointment: Rika Bello WPtel: [address] [place] [phone] (30 min) [facility] 03/11/2016 Patient [...] use 02/26/2016 Appointment: Rika Bello WPtel: 101 [phone] (30 min) Complex 02/26/2016 Patient Education: Patient Medication Summary Completed 02/26/2016 Appointment: Rika Bello WPtel: [address] [phone] (30 min) Complex 02/25/2016 Appointment: Rika Bello WPtel: [address] [phone] [place] (30 min) Complex 02/23/2016 Appointment: Lab [...] to mold 02/02/2016 Appointment: Rika Bello WPtel: 1017 [phone] (30 min) Complex 02/02/2016 Patient Education: Patient Medication Summary Completed 02/02/2016 Appointment: Tessie Motta WPtel: 1015 [facility] (15 min) Moderate 01/21/2016 Appointment: Rika Bello WPtel: [facility]5 [phone] (30 min) Complex 01/14/2016 Visit Plan: Hypertension [...] Patient Medication Summary Completed 12/17/2015 Visit Plan: Cbpjdss-okjofuvzs-esyr head injury on 12/05-did not go to ER-patient sent for STAT CT scan of head-schedule appt with Dr Dyer Adrenal insufficiency-patient suddenly stopped prednisone-instructed patient to restart and taper prednisone as directed Rib aeyp-qzlgr-einbrp fall-xray ribs 12/08/2015 Appointment: Rika Bello WPtel: [facility]5 [phone] (30 min) Complex 12/08/2015 Appointment: Rika Bello WPtel: [facility]5 [phone] (15 min) Moderate 12/08/2015 Patient Education: Patient Medication Summary Completed 12/08/2015 Care Plan: COMPLETE CBC AUTOMATED LOINC : 34207-5 Pending 12/08/2015 Visit Plan: Hypertension - well [...] pt was given a script for a mcfp prednisone taper - pt has not started [...] Dr. Mejia 10/27/2015 Appointment: Rika Bello WPtel: [address] [place], [place] [phone] [place] [address] (30 min) [facility] 10/27/2015 Patient Education: Patient Medication Summary Completed 10/27/2015 Patient Education: Obesity Completed 10/27/2015 Care Plan: Referral Order SNOMED-CT : [id number] Pending 10/27/2015 Referral: Matt Pavon HPtel:[phone] [place], [place] [id number] Referral Initiated 10/21/2015 Visit Plan: Medicare Exam [...] stomach pain. 09/29/2015 Appointment: Rika Bello WPtel: [phone] [facility] - Welcome to Medicare visit 09/29/2015 Patient Education: Patient Medication Summary Completed 09/29/2015 Patient Education: Obesity Completed 09/29/2015 Care Plan: Referral Order SNOMED-CT : [id number] Pending 09/29/2015 Care Plan: BMI Above normal [...] min) Complex 05/05/2015 Appointment: Rika Bello WPtel: [phone] (30 min) Complex 04/27/2015 Visit Plan: [...] Completed 03/03/2015 Appointment: Rika Bello WPtel: [facility] [phone] [place] (30 min) Complex 02/24/2015 Appointment: (30 min) Complex 01/29/2015 Appointment: Tessie Motta WPtel: [facility] [place] (15 min) Moderate 01/22/2015 Visit Plan: Blister of right lower leg-fluids removed with #27 gauze needle and compression dressing applied-refer to wound care for evaluation and management-patient is at high risk of developing large ulcer due to diabetes, noncompliance and poor hygiene. Rash right leg-start oral abx and bactroban as directed Okctv-cdvbkmetlanf-hvo markie wraps, elevate leg, and again instructed [...] eating out. 01/01/2015 Appointment: Tessie Motta WPtel: [address] [place] [address] (15 min) Moderate 01/01/2015 Patient Education: Patient [...] Care Plan: COMPLETE CBC AUTOMATED LOINC : 50272-5 Ordered 11/04/2014 Care Plan: URINALYSIS NONAUTO W/O SCOPE LOINC : 76626-0 Ordered 11/04/2014 Appointment: Follow up 10/07/2014 Visit Plan: Edema - pt has been advised to elevate legs to prevent dependent edema, compression has been recommended to help to naturally decrease peripheral edema. Diuretic use has been discussed and pt has been instructed in appropriate use of such medication as necessary to further attempt to reduce peripheral edema. Uiqrdqwlzd-gasujasu-fl change in treatment- continue compression hose-decrease salt/sodium in diet-call if symptoms worsen or do not resolve Dihjljilj-lhuhxoz-zjjdvhpm nasonex to twice daily as directed 09/08/2014 [...] worsen. 06/12/2014 Appointment: Rika Bello WPtel: [phone] Follow up 06/12/2014 Patient Education: Patient Medication Summary Completed 06/12/2014 Patient Education: .Amazing charts Exercise for Sciatica Completed 06/12/2014 Care Plan: COMPLETE CBC AUTOMATED LOINC : 83568-7 Ordered 06/12/2014 Visit Plan: Cellulitis - continue [...] Completed 05/26/2014 Appointment: Tessie Motta WPtel: [facility] Lab Draw 04/21/2014 Patient Education: Patient [...] at home. 02/13/2014 Appointment: Tessie Motta WPtel: [facility]5 [facility] Follow up 02/13/2014 Patient Education: Patient [...] units daily. 01/27/2014 Appointment: Tessie Motta WPtel: [address] [place], [place] [phone] Follow up 01/27/2014 Patient Education: Patient Medication Summary Completed 01/27/2014 Appointment: Rika Bello WPtel: [address] [place], [place] [phone] Follow up 01/02/2014 Visit Plan: Open wound of adg-zaxylxjq-nslgwhjd with dressing changes as directed-call for increase [...] Summary Completed 12/26/2013 Appointment: Tessie Motta WPtel: [address] [place], [place] [phone] Follow up 12/24/2013 Visit Plan: Open wound of right leg-debrided today in the office-instructed on wound care-follow up as directed. Call with any questions, concerns, or worsening symptoms. Culture of wound today in the office-RX for abx sent to patient's pharmacy and instructed on use. Patient verbalized understanding of plan. 12/12/2013 Appointment: Rika Bello WPtel: [address] [place], [place] [phone] Other 12/12/2013 Patient Education: Patient Medication Summary Completed 12/12/2013 Appointment: Tessie Motta WPtel: [address] [place], [place] [phone] Follow up 11/20/2013 Visit Plan: negative ua 11/18/2013 Appointment: Tessie Motta WPtel: [facility] [place] Lab Draw 11/18/2013 Patient Education: Patient [...] Completed 11/14/2013 Visit Plan: Open wound right sgl-uavbdt-jdmq if opens up Edema - pt has been advised to elevate legs to prevent dependent edema, compression has been recommended to help to naturally decrease peripheral edema. Diuretic use has been discussed and pt has been instructed in appropriate use of such medication as necessary to further attempt to reduce peripheral edema. 10/21/2013 Appointment: Rika Bello WPtel: [facility]5 [phone] Follow up 10/21/2013 Patient Education: Patient Medication Summary Completed 10/21/2013 Appointment: Rika Bello WPtel: [phone] [place] Follow up 10/17/2013 Appointment: Tessie Motta WPtel: [facility] Follow up 10/10/2013 Visit Plan: Hypertension [...] for pain. 10/03/2013 Appointment: Rika Bello WPtel: [facility] Follow up 10/03/2013 Patient Education: Patient Medication [...] of plan. 09/23/2013 Appointment: Tessie Motta WPtel: [facility] [facility] Visit 09/23/2013 Patient Education: Patient [...] 2 WEEKS. 09/20/2013 Appointment: Rika Bello WPtel: [address] [place], [place] [phone] [place] [address] Follow up 09/20/2013 Patient Education: Patient Medication Summary Completed 09/20/2013 Patient Education: Hypertension Completed 09/20/2013 Appointment: Tessie Motta WPtel: [address] [place] [address] Follow up 09/16/2013 Visit Plan: Edema - [...] verbalized understanding. 09/10/2013 Appointment: Rika Bello WPtel: [address] [place], [place] [phone] Other 09/10/2013 Patient Education: Patient Medication Summary Completed 09/10/2013 Appointment: Rika Bello WPtel: [address] [place] [address] Follow up 09/02/2013 Visit Plan: Diabetes Mellitus [...] peripheral edema. 08/19/2013 Appointment: Rika Bello WPtel: [phone] [facility] 08/19/2013 Patient Education: Patient Medication [...] as scheduled 08/01/2013 Appointment: Rika Bello WPtel: [address] [place], [place] [phone] [place] [address] Follow up 08/01/2013 Patient Education: Patient Medication Summary Completed 08/01/2013 Appointment: Rika Bello WPtel: [address] [place], [place] [phone] [place] [address] Follow up 07/25/2013 Appointment: Tessie Motta WPtel: [address] [place] [address] Follow up 07/25/2013 Visit Plan: Bister of foot-dressing changes discussed with patient and instructed her to keep her foot clean and dry-STOP WEARING FLIP FLOPS as they are causing friction over blistered area. Keep follow up appointment as scheduled. Call for redness, drainage or other s/s of infection. 07/19/2013 Appointment: Rika Bello WPtel: [address] [place], [place] [phone] [place] [address] Other 07/19/2013 Patient Education: Patient Medication Summary [...] peripheral edema. 07/15/2013 Appointment: Rika Bello WPtel: [address] [place], [place] [phone] Other 07/15/2013 Patient Education: Patient Medication Summary Completed 07/15/2013 Patient Education: Hypertension Completed 07/15/2013 Appointment: Rika Bello WPtel: [address] [place] [phone] [place] Follow up 07/01/2013 Appointment: Rika Bello WPtel: 1015 [phone] Lab Draw 06/28/2013 Patient Education: Patient Medication [...] 900mg tid. 06/27/2013 Appointment: Tessie Motta WPtel: [facility]5 [facility] Other 06/27/2013 Patient Education: Patient Medication Summary Completed 06/27/2013 Appointment: Tessie Motta WPtel: [facility]5 [facility]66[facility] Other 06/24/2013 Visit Plan: Diabetes Mellitus - [...] THE AFTERNOON. 06/10/2013 Appointment: Tessie Motta WPtel: [address] [place], [place] [phone] Follow up 06/10/2013 Patient Education: Patient Medication Summary Completed 06/10/2013 Appointment: Tessie Motta WPtel: [address] [place], [place] [phone] Follow up 06/06/2013 Visit Plan: Sinusitis - [...] acutely worsen. 05/07/2013 Appointment: Tessie Motta WPtel: [facility]4 [facility] Follow up 05/07/2013 Patient Education: Patient Medication Summary Completed 05/07/2013 Appointment: Tessie Motta WPtel: [facility]3 [facility] Follow up 04/30/2013 Visit Plan: Edema [...] acute changes. 04/16/2013 Appointment: Tessie Motta WPtel: [facility] Follow up 04/16/2013 Patient Education: Patient Medication Summary Completed 04/16/2013 Appointment: Tessie Motta WPtel: [facility] [facility] Follow up 04/04/2013 Visit Plan: Lumbago-continue physical [...] peripheral edema. 03/21/2013 Appointment: Rika Bello WPtel: [phone] Follow up 03/21/2013 Patient Education: Patient Medication Summary Completed 03/21/2013 Appointment: Tessie Motta WPtel: [facility] [facility] Follow up 03/20/2013 Appointment: Tessie Motta WPtel: [facility] [facility] Follow up 03/05/2013 Visit Plan: Edema-significantly improved- [...] controlled. 02/12/2013 Appointment: Rika Bello WPtel: [facility] [place] [address] follow up 02/12/2013 Patient Education: Patient Medication [...] Dyspnea - recommended pt to see new payment processor when he gets to [facility] for further evaluation and work-up. 02/04/2013 Appointment: Tessie Motta WPtel: [facility] [facility] Follow up 02/04/2013 Patient Education: Patient [...] not improve. 01/17/2013 Appointment: Rika Bello WPtel: [address] [place], [place] [phone] Follow up 01/17/2013 Patient Education: Patient Medication Summary Completed 01/17/2013 Patient Education: Hypertension Completed 01/17/2013 Appointment: Tessie Motta WPtel: [address] [place], [place] [phone] Follow up 01/16/2013 Appointment: Tessie Motta WPtel: [address] [place], [place] [phone] Follow up 01/10/2013 Appointment: Rika Bello WPtel: [facility]3 [phone] [place] Lab Draw 01/01/2013 Patient Education: Patient [...] Hypothyroidism-check labs 12/31/2012 Appointment: Rika Bello WPtel: [facility]3 [phone] Follow up 12/31/2012 Appointment: Rika Bello WPtel: [facility]6 [phone] [facility] 12/31/2012 Patient Education: Patient Medication Summary [...] labs. 12/20/2012 Appointment: Rika Bello WPtel: [address] [phone] [facility] 12/20/2012 Patient Education: Patient Medication Summary Completed 12/20/2012 Patient Education: Hypertension Completed 12/20/2012 Appointment: Tessie Motta WPtel: [facility]5 [facility] Lab Draw 11/05/2012 Patient Education: Patient Medication Summary Completed 11/05/2012 Visit Plan: Bronchitis - acute case of bronchitis identified. Pt has been given antibiotics, breathing treatments as appropriate, and pt has been instructed to call if symptoms are not improved, or if symptoms acutely worsen. 10/29/2012 Appointment: Tessie Motta WPtel: [phone] [facility] 10/29/2012 Patient Education: Patient Medication Summary Completed 10/29/2012 Visit Plan: Joint Injection-left SI joint - Pt was given post - injection instructions. The pt has been advised to use antiinflammatories post injection today, ice to the injected site, call if redness, warmth, or increased pain occurs at the site of injection. 09/21/2012 Appointment: Rika Bello WPtel: [phone] [phone] Follow up 09/21/2012 Patient Education: Patient Medication [...] control. 09/06/2012 Appointment: Tessie Motta WPtel: [phone] Follow up 09/06/2012 Patient Education: Patient [...] readings are starting to become less controlled. Opkovacf-xxtvkvvr-zayymdlx probiotic-continue to hold metformin and repeat labs before appt in 2 weeks. Call for abd pain, worsening diarrhea, or other concerns. 08/23/2012 Appointment: [phone] [facility] 08/23/2012 Patient Education: Patient [...] PLAN. 08/13/2012 [phone] Follow [facility] 08/13/2012 Patient Education: Patient [...] concerns. 08/07/2012 Appointment: Rika Bello WPtel: [phone] [place] [phone] Other 08/07/2012 Patient Education: Patient Medication Summary Completed 08/07/2012 Patient Education: Hypertension Completed 08/07/2012 Visit Plan: UA-sent for culture 07/19/2012 Appointment: Rika Bello WPtel: [phone] [place] [phone] Lab Draw 07/19/2012 Patient Education: Patient Medication [...] directed 07/06/2012 Appointment: Rika Bello WPtel: [phone] [phone] [facility] 07/06/2012 Patient Education: Patient Medication Summary [...] glucose levels pneumovac given today 06/07/2012 Appointment: Kalia Tessie WPtel: [phone] [facility] Follow up 06/07/2012 Appointment: Tessie Motta WPtel: [phone] Follow up 06/07/2012 Patient Education: Patient Medication [...] days. 05/28/2012 Appointment: Rika Bello WPtel: [phone] [phone] Follow up 05/28/2012 Patient Education: Patient Medication [...] peripheral edema. 05/17/2012 Appointment: Rika Bello WPtel: [facility]4 [id number] [place] [address] Follow UP 05/17/2012 Patient Education: Patient Medication [...] the office 05/02/2012 Appointment: Tessie Motta WPtel: [facility] Follow up 05/02/2012 Patient Education: Patient Medication Summary Completed 05/02/2012 Patient Education: Hypertension Completed 05/02/2012 Appointment: Tessie Motta WPtel: [facility] [place] Follow up 04/25/2012 Visit Plan: Sinusitis - [...] acute concerns. 04/10/2012 Appointment: Rika Bello WPtel[phone] Follow up 04/10/2012 Patient Education: Patient [...] I&D on Monday02/27/2012 Appointment: Rika Bello WPtel: [facility]0 [phone] [place] Follow up 02/27/2012 Patient Education: Patient [...] to thighs. 02/15/2012 Appointment: Rika Bello WPtel: [address] [place], [place] [phone] Follow up 02/15/2012 Patient Education: Patient Medication [...] thighs. RX sent to patient's [facility]. Chest xray at the hospital as well. [...] urine. 02/01/2012 Appointment: [facility]el[phone] Other 02/01/2012 Patient Education: Patient Medication [...] buttocks 12/14/2011 Appointment: Tessie Motta WPtel: [phone] Other 12/14/2011 Patient Education: Patient Medication Summary Completed 12/14/2011 Appointment: Tessie Motta WPtel: [phone] Follow up 12/08/2011 Visit Plan: N/V/D [...] starting to become less controlled. 11/30/2011 Appointment: Ace Rika WPtel: [phone] [phone] [place] [address] Other 11/30/2011 Patient Education: Patient Medication Summary [...] back pain. 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 Ulcer of toe - continue with topical antibiotics as previously directed, return to clinic as previously directed, call for acute change in symptoms, worsening redness, warmth, discharge. 11/03/2011 Appointment: Tess[facility]ta [facility]Ptel[phone] [facility] 11/03/2011 Patient Education: Patient Medication [...] discharge. 10/24/2011 Appointment: [facility]ta [facility]Ptel[phone] [facility] 10/24/2011 Patient Education: Patient Medication [...] with lymphoma. 09/26/2011 Appointment: Rika Bello WPtel: [phone] [phone] Other 09/26/2011 Patient Education: Patient Medication Summary [...] Completed 2011 Appointment: Tessie Motta WPtel: [phone] Other 09/05/2011 Visit Plan: Sinusitis - Pt [...] the medication. 09/01/2011 Appointment: Tessie Motta WPtel: [phone] [facility] Other 09/01/2011 Patient Education: Patient Medication Summary Completed 09/01/2011 Visit Plan: Sinusitis - continue with ciprofloxacin and start on corcidin HBP. Anxiety - start the xanax 0.5mg 1/2 pill twice daily. 08/15/2011 Appointment: Tessie Motta WPtel: [facility] Other 08/15/2011 Appointment: Tessie Motta WPtel: [address] [place], [place] [id number] Other 08/15/2011 Patient Education: Patient Medication Summary [...] the hospital. 08/09/2011 Appointment: Rika Bello WPtel: [facility]8 [phone] [place] Other 08/09/2011 Patient Education: Patient Medication [...] not resolve 08/01/2011 Appointment: Rika Bello WPtel: [address] [place] [address] Other 08/01/2011 Patient Education: Patient Medication Summary Completed 08/01/2011 Appointment: Rika Bello WPtel: [address] [place] [address] [place] Other 07/26/2011 Appointment: Tessie Motta WPtel: [address] [place] [address] Other 07/18/2011 Visit Plan: Diabetes Mellitus - [...] management sparingly. 06/20/2011 Appointment: Tessie Motta WPtel: [address] [place] [address] Other 06/20/2011 Patient Education: Patient Medication Summary [...] 1 month. 04/18/2011 Appointment: Tessie Motta WPtel: [address] [place] [address] Other 04/18/2011 Patient Education: Patient Medication Summary Completed 04/18/2011 Patient Education: High Blood Pressure: Essential Hypertension Completed 2010 Appointment: Tessie Motta WPtel: [address] [place] [address] Other 04/12/2011 Appointment: Tessie Motta WPtel: [address] [place] [address] Other 02/16/2011 [phone] Referral Initiated Referral: Yareli Raines Referral [...] change in symptoms, worsening redness, warmth, discharge. Nnltyczj-ivtcrvuxphki-wmzca labs today-patient has been given orders multiple [...] leg-start oral abx and bactroban as directed Fxfyy-plopfjaqeuhg-ucu markie wraps, elevate leg, and again instructed [...] drainage or other s/s of infection. . Svu-nlfafgoguc-lv changes Anemia-check cbc today Dental infection-on clindamycin [...] change in blood pressure readings at home. UW-buhyobwlvkbr-vgdyhhidi strict diet and exercise with patient Low tgvxsjyqm-joozvrso-uyjogndc to monitor Abd jlwk-paytnqem-hc changes FOR CHOLESTEROL - THE NEW DOSE [...] readings are starting to become less controlled. Kyghsgjp-xegwqzbi-rhphccrj probiotic-continue to hold metformin and repeat labs [...] HTN-elevated today-monitor at home -follow up with semi automatic sewing machine operator . Open wound of slc-zdpytook-cbnbwnwx with dressing changes as directed-call for increase [...] symptom management sparingly. . Open wound right mrq-dzhpuu-isty if opens up Edema - pt has been advised to elevate legs to prevent dependent edema, compression has been recommended to help to naturally decrease peripheral edema. Diuretic use has been discussed and pt has been instructed in appropriate use of such medication as necessary to further attempt to reduce peripheral edema. . Cyzatpf-afubvjmqw-ueol head injury on 12/05-did not go to ER-patient sent for STAT CT scan of head-schedule appt with Dr Dyer Adrenal insufficiency-patient suddenly stopped prednisone-instructed patient to restart and taper prednisone as directed Rib hzby-tulhn-pgyytv fall-xray ribs START CHECKING BLOOD SUGARS!!!! BRING [...] to allow for greater blood glucose control. EHZ-bderdtdwqh-dt changes in medications at this time. 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 NBE-ezjxpvzsagl-kzdjg labs-monitor blood pressure and heart rate closely- [...] a prescription for cipro and flagyl to [facility]. Start it today. . Sinusitis - [...] for diflucan-call if symptoms do not resolve [place] balm over the counter for the knee. [...] to further attempt to reduce peripheral edema. Mzlwdbrbmv-dazlhsid-ol change in treatment-continue compression hose-decrease salt/sodium in diet-call if symptoms worsen or do not resolve Xiecpjrhy-baqskdw-svymdofk nasonex to twice daily as directed pt [...] pt was given a script for a oil heaterman prednisone taper - pt has not started [...] Q HS RESCHEDULE APPT WITH DR YANNA HoExgrzqyex-tjogpjich-jr for bactroban ointment provided and instructed on use UTB-cndwzxkcbn-mg change in medications Mildly elevated liver enzymes-discussed [...] Dyspnea - recommended pt to see new payment processor when he gets to [facility] for further evaluation and work-up. [...] toes to thighs. [facility] Chest xray at the hospital [...] control. Yeast infection -rx for nystatin powder SUQH-qnvgtqbnh-yykppf ekeuzdfls-tytf-wkczmrr is oxygen dependent due to severely compromised pulmonary and cardiac systems-will send orders to [facility] to continue oxygen . Diabetes Mellitus [...] control. Yeast infection -rx for nystatin powder ZRGH-ojfrrtsua-fwibnm fugsfuuaz-xouy-zrjffcz is oxygen dependent due to severely compromised pulmonary and cardiac systems-will send orders to [facility] to continue oxygen . Diabetes Mellitus [...] control. Yeast infection -rx for nystatin powder MQNV-wewwxlnsl-jgpbxz qbyivraaq-svyd-enfbyyb is oxygen dependent due to severely compromised pulmonary and cardiac systems-will send orders to [facility] to continue oxygen . Diabetes Mellitus [...] over-medication. . Generalized abdominal pain-discussed with Dr Mtota-CT negative in ER last night-patient is non [...] and return Monday for removal of IPRO Huiyuub-wxoqulsoiu-qo changes in medications-recommend counseling-patient refuses Weakness-patient is [...] your appt with her -she is a forensic specialist . Diabetes Mellitus - ucontrolled- I [...] to become less controlled. Low potassium-check labs XLP-plmgxtntll-zr changes Afib-check digoxin level with labs Abdominal pain-refill levsin for prn use -call if pain uncontrolled DR Yareli Raines-you need to reschedule your appt with her -she is a forensic specialist . Diabetes Mellitus - ucontrolled- I [...] to become less controlled. Low potassium-check labs PLH-iacdvyghny-wk changes Afib-check digoxin level with labs Abdominal [...] PAIN MANAGEMENT FOR INJECTIONS STOP BY VIA [email or web address] FOR NEW CPAP SUPPLIES . Hypertension - [...] every night DM-check Hgb A1C Hypothyroidism-check level Cshowew-pbqgwcfohi-nfs well controlled-increase cymbalta-recommend counseling . Diabetes Mellitus [...] she needs to...RESCHEDULE APPT WITH DR RAINES XVJ-qpoaztdzlg-bg change in medications CPAP NEBULIZER CHECK UA [...]
--- OUTSIDE RECORDS SUMMARY | 2018-06-04 18:01 | XMS REPORT | CCD ---
Author Author [facility] Organization [facility] Address [address] [place] [address] Phone Care Team Providers Care Senior Publications Specialist Name Role Phone Tessie Motta PP Unavailable CCM Unavailable Summary Purpose Interface Exchange Insurance Providers Payer name Policy type / Coverage type Covered green party ID Effective Begin Date Effective End Date WPS Medicare Part B Medicare Part B [id number] 2015 Unknown [facility] Medicare Part B [id number] Unknown Family history Son Diagnosis Age At [...] College Graduate 08/21/[address]: 891403858 Never smoker 02/11/[address]: 728714521 Never drinks alcohol 02/11/2011 Has the patient ever used illegal drugs? Unknown Has never used illegal drugs 02/11/2011 Allergies, Adverse Reactions, Alerts Substance Reaction Codes Entered Date Inactivated Date Status CODEINE RxNorm: 2670 02/11/2011 No Inactive Date Active * NO KNOWN FOOD ALLERGIES Unknown 02/01/2012 No Inactive Date Active cefdinir RxNorm: 09876 08/07/2012 No Inactive Date Active PENICILLINS Unknown [...] Instructions Tessalon Perles 100 mg capsule RxNorm: 100271 Capsule(s) Capsule(s) 2 Capsule(s) PO TID as needed 04/17/2018 No Stop Date Active Xanax 0.5 mg tablet RxNorm: 032404 1 Tablet(s) BID as needed 04/09/2018 05/08/2018 Active Percocet 10 mg-325 mg tablet RxNorm: 5282561 1-2 Tablet(s) PO Q6 PRN 04/05/2018 04/19/2018 Active colestipol 1 gram tablet RxNorm: 5395170 TAKE ONE TABLET BY MOUTH TWICE DAILY 03/30/2018 No Stop Date Active nystatin 100,000 unit/mL oral suspension RxNorm: 306934 Unit(s) 5 Milliliter(s) PO QID swish and swallow 03/21/20182017 Inactive Tessalon Perles 100 mg capsule RxNorm: 603300 Capsule(s) Capsule(s) 2 Capsule(s) PO TID as needed 03/21/2018 04/16/2018 Inactive Xanax 0.5 mg tablet RxNorm: 579905 Tablet(s) BID as needed 04/09/2018 Inactive Slow Fe 47.5 mg iron tablet,extended release RxNorm: 1 Tablet(s) PO every other day 03/12/2018 04/10/2018 Inactive Percocet 10 mg-325 mg tablet RxNorm: 0198830 1-2 Tablet(s) PO Q6 PRN 03/12/2018 03/26/2018 Inactive Slow Fe 47.5 mg iron tablet,extended release RxNorm: 1 Tablet(s) PO 3 x week 02/28/2018 03/11/2018 Inactive promethazine 25 mg tablet RxNorm: 529273 Tablet(s) 1 Tablet(s) PO Q6 PRN TAKE NEEDED ONLY!!! 02/21/2018 No Stop Date Active gabapentin 600 mg tablet RxNorm: 326673 Tablet(s) TAKE ONE & ONE-HALF TABLETS BY MOUTH THREE TIMES DAILY 02/20/20182018 Active Cymbalta 60 mg capsule,delayed release RxNorm: 296025 1 Capsule(s) PO daily take with 30mg tablet 02/20/2018 08/18/2018 Active Vitamin D2 50,000 unit capsule RxNorm: 3843191 1 Capsule(s) PO QW 02/20/2018 04/20/2018 Active Cymbalta 30 mg capsule,delayed release RxNorm: 046658 Capsule(s) TAKE ONE CAPSULE BY MOUTH ONCE DAILY - TAKE WITH THE 60 MG DOSE FOR A TOTAL OF 90 MG 02/20/2018 08/18/2018 Active Vitamin D2 50,000 unit capsule RxNorm: 3678105 1 Capsule(s) PO QW 02/20/2018 02/19/2018 Inactive mupirocin 2 % topical ointment RxNorm: 670680 APPLY TO SORE IN BELLY BUTTON TWICE DAILY 02/15/2018 No Stop Date Active Percocet 10 mg-325 mg tablet RxNorm: 0021876 1-2 Tablet(s) PO Q6 PRN 02/14/2018 02/28/2018 Inactive Toumary SoloStar U-300 Insulin 300 unit/mL (1.5 mL) subcutaneous pen RxNorm: 3542027 40 Unit(s) SQ BID per dr raines 02/07/2018 03/08/2018 Inactive nystatin 100,000 unit/mL oral suspension RxNorm: 605413 5 Milliliter(s) PO QID swish and swallow 02/02/2018 02/11/2018 Inactive mupirocin 2 % topical ointment RxNorm: 897508 1 Application TOP BID 01/30/2018 02/08/2018 Inactive Tessalon Perles 100 mg capsule RxNorm: 731582 Capsule(s) 2 Capsule(s) PO TID as needed 01/23/2018 03/20/2018 Inactive Xanax 0.5 mg tablet RxNorm: 034065 Tablet(s) TAKE ONE TABLET BY MOUTH THREE TIMES DAILY NEEDED 01/17/20182017 Inactive ropinirole 1 mg tablet RxNorm: 960409 1 Tablet(s) PO BID 201705/10/2018 Active digoxin 125 mcg tablet RxNorm: 461822 1 Tablet(s) PO daily 05/09/2018 Active Percocet 10 mg-325 mg tablet RxNorm: 5190776 1-2 Tablet(s) PO Q6 PRN 01/04/2018 01/18/2018 Inactive Percocet 10 mg-325 mg tablet RxNorm: 5441832 1-2 Tablet(s) PO Q6 PRN 01/02/2018 01/03/2018 Inactive promethazine 25 mg tablet RxNorm: 894334 Tablet(s) 1 Tablet(s) PO Q6 PRN TAKE NEEDED ONLY!!! 01/02/2018 02/20/2018 Inactive pantoprazole 40 mg tablet,delayed release RxNorm: 018011 TAKE 1 TABLET BY MOUTH ONCE DAILY 12/25/2017 No Stop Date Active mupirocin 2 % topical ointment RxNorm: 174429 1 Application TOP BID 12/22/2017 12/31/2017 Inactive fluconazole 150 mg tablet RxNorm: 075347 1 Tablet(s) PO every other day x 3 doses 12/14/2017 12/23/2017 Inactive Percocet 10 mg-325 mg tablet RxNorm: 3995039 1-2 Tablet(s) PO Q6 PRN 12/13/2017 12/27/2017 Inactive hyoscyamine 0.125 mg sublingual tablet RxNorm: 2455604 Tablet(s) 1 Tablet(s) SL TID as needed 12/13/2017 04/11/2018 Inactive nystatin 100,000 unit/gram topical powder RxNorm: 015784 APPLY POWDER TOPICALLY 4 TIMES DAILY 12/11/2017 No Stop Date Active Xanax 0.5 mg tablet RxNorm: 893522 Tablet(s) TAKE ONE TABLET BY MOUTH THREE TIMES DAILY NEEDED 12/06/20172017 Inactive nitrofurantoin 50 mg capsule RxNorm: 928255 1 Capsule(s) PO BID 12/01/2017 11/30/2017 Inactive take probiotic BID x 7 days nitrofurantoin 50 mg capsule RxNorm: 120450 1 Capsule(s) PO BID 12/01/2017 12/07/2017 Inactive take probiotic BID x 7 days mupirocin 2 % topical ointment RxNorm: 313247 1 Application TOP BID 11/27/2017 12/06/2017 Inactive Tessalon Perles 100 mg capsule RxNorm: 412983 Capsule(s) 2 Capsule(s) PO TID as needed 11/21/2017 01/22/2018 Inactive nystatin 100,000 unit/mL oral suspension RxNorm: 154607 5 Milliliter(s) PO QID swish and swallow 11/17/2017 11/26/2017 Inactive nystatin 100,000 unit/mL oral suspension RxNorm: 747907 5 Milliliter(s) PO QID swish and swallow 11/17/2017 11/16/2017 Inactive Toprol XL 100 mg tablet,extended release RxNorm: 692150 TAKE ONE TABLET BY MOUTH TWICE DAILY 11/15/2017 No Stop Date Active ropinirole 1 mg tablet RxNorm: 356600 Tablet(s) BID 11/14/2017 01/10/2018 Inactive Diflucan 150 mg tablet RxNorm: 368557 Tablet(s) every other day 1 Tablet(s) PO every other day 11/14/2017 11/16/2017 Inactive Percocet 10 mg-325 mg tablet RxNorm: 8058936 1-2 Tablet(s) PO Q6 PRN 11/09/2017 11/23/2017 Inactive Flonase Allergy Relief 50 mcg/actuation nasal spray, suspension RxNorm: 2596493 2 Adrian NASAL daily 11/06/20172017 Inactive cyclobenzaprine 10 mg tablet RxNorm: 544054 Tablet(s) TABLET(S) 1 TABLET(S) PO NEEDED TAKE 1 TABLET BY MOUTH EVERY 8 HOURS NEEDED 2017 No Stop Date Active Cymbalta 30 mg capsule,delayed release RxNorm: 534408 TAKE ONE CAPSULE BY MOUTH ONCE DAILY - TAKE WITH THE 60 MG DOSE FOR A TOTAL OF 90 MG 02/19/2018 Inactive Lanjordius Solkaleighar U-100 Insulin 100 unit/mL (3 mL) subcutaneous pen RxNorm: 744310 Unit(s) SQ 35 units QAM and 55 units QHS Unit(s) SQ 10/27/2017 02/07/2018 Inactive Wants insulin pens Percocet 10 mg-325 mg tablet RxNorm: 4107547 1-2 Tablet(s) PO Q6 PRN 10/27/2017 11/08/2017 Inactive promethazine 25 mg tablet RxNorm: 316354 Tablet(s) 1 Tablet(s) PO Q6 PRN TAKE NEEDED ONLY!!! 10/27/2017 01/01/2018 Inactive Xanax 0.5 mg tablet RxNorm: 058114 Tablet(s) TAKE ONE TABLET BY MOUTH THREE TIMES DAILY 10/20/2017 04/08/2018 Inactive Tessalon Perles 100 mg capsule RxNorm: 053462 Capsule(s) 2 Capsule(s) PO TID as needed 10/19/2017 11/20/2017 Inactive Diflucan 150 mg tablet RxNorm: 264412 1 Tablet(s) PO every other day 10/15/2017 11/13/2017 Inactive Percocet 10 mg-325 mg tablet RxNorm: 3791191 1-2 Tablet(s) PO Q6 PRN 10/06/2017 10/20/2017 Inactive pantoprazole 40 mg tablet,delayed release RxNorm: 843588 1 Tablet(s) PO BID 10/03/2017 03/31/2018 Inactive Cymbalta 60 mg capsule,delayed release RxNorm: 000222 TAKE ONE CAPSULE BY MOUTH ONCE DAILY 09/21/2017 02/19/2018 Inactive Diflucan 150 mg tablet RxNorm: 596932 1 Tablet(s) PO every other day 09/15/2017 09/19/2017 Inactive hyoscyamine 0.125 mg sublingual tablet RxNorm: 8950911 1 Tablet(s) SL TID as needed 09/08/2017 12/12/2017 Inactive Lantus Solostar U-100 Insulin 100 unit/mL (3 mL) subcutaneous pen RxNorm: 964350 Unit(s) SQ 35 units QAM and 55 units QHS Unit(s) SQ 09/06/2017 09/20/2017 Inactive Wants insulin pens Lasix 40 mg tablet RxNorm: 150496 TAKE ONE TABLET BY MOUTH TWICE DAILY 08/25/2017 No Stop Date Active ropinirole 1 mg tablet RxNorm: 293925 TAKE ONE TABLET BY MOUTH AT BEDTIME 08/25/2017 11/13/2017 Inactive Lantus U-100 Insulin 100 unit/mL subcutaneous solution RxNorm: 729112 35 units QAM and 55 units QHS Unit(s) SQ 08/21/2017 09/05/2017 Inactive Tessalon Perles 100 mg capsule RxNorm: 683332 Capsule(s) 2 Capsule(s) PO TID as needed 08/18/2017 10/18/2017 Inactive Percocet 10 mg-325 mg tablet RxNorm: 4562203 1-2 Tablet(s) PO Q6 PRN 08/16/2017 08/30/2017 Inactive pantoprazole 40 mg tablet,delayed release RxNorm: 834753 TAKE ONE TABLET BY MOUTH TWICE DAILY 08/14/2017 08/13/2017 Inactive pantoprazole 40 mg tablet,delayed release RxNorm: 789418 1 Tablet(s) PO daily 08/14/2017 10/02/2017 Inactive promethazine 25 mg tablet RxNorm: 950288 Tablet(s) 1 Tablet(s) PO Q6 PRN TAKE NEEDED ONLY!!! 08/11/2017 10/26/2017 Inactive omeprazole 20 mg capsule,delayed release RxNorm: 337506 1 Capsule(s) PO daily TAKE 1 CAPSULE BY MOUTH ONCE DAILY 08/07/2017 10/26/2017 Inactive nystatin 100,000 unit/mL oral suspension RxNorm: 436038 5 Milliliter(s) PO QID swish and swallow 08/07/2017 08/16/2017 Inactive mupirocin 2 % topical ointment RxNorm: 476618 APPLY TO SORE IN BELLY BUTTON TWICE DAILY 08/07/2017 02/14/2018 Inactive omeprazole 20 mg capsule,delayed release RxNorm: 279932 1 Capsule(s) PO BID TAKE 1 CAPSULE BY MOUTH TWICE DAILY 08/03/2017 08/06/2017 Inactive Diflucan 150 mg tablet RxNorm: 697754 1 Tablet(s) PO daily 08/05/2017 Inactive hyoscyamine 0.125 mg sublingual tablet RxNorm: 2918170 1 Tablet(s) SL TID as needed 08/03/2017 09/01/2017 Inactive gentamicin 0.3 % eye drops RxNorm: 612888 2 Drop(s) ophthalmic (eye) TID 08/03/2017 08/09/2017 Inactive Levaquin 500 mg tablet RxNorm: 143833 1 Tablet(s) PO every other day x3 doses 07/27/2017 08/02/2017 Inactive gentamicin 0.3 % eye drops RxNorm: 847061 2 Drop(s) ophthalmic (eye) TID 07/27/2017 08/02/2017 Inactive dicyclomine 10 mg capsule RxNorm: 195144 1 Capsule(s) PO TID 08/02/2017 Inactive Levaquin 500 mg tablet RxNorm: 269326 1 Tablet(s) PO daily 12/201707/26/2017 Inactive Lantus U-100 Insulin 100 unit/mL subcutaneous solution RxNorm: 443041 INJECT 35 UNITS SUBCUTANEOUSLY IN THE MORNING AND 55 UNITS AT BEDTIME 07/24/2017 09/05/2017 Inactive Tessalon Perles 100 mg capsule RxNorm: 857889 2 Capsule(s) PO TID as needed 07/24/2017 08/17/2017 Inactive Percocet 10 mg-325 mg tablet RxNorm: 1145997 1-2 Tablet(s) PO Q6 PRN 07/21/2017 08/04/2017 Inactive promethazine 25 mg tablet RxNorm: 633288 1 Tablet(s) PO Q6 PRN 1 Tablet(s) PO Q6 PRN 07/19/2017 07/26/2017 Inactive Cartia XT 240 mg capsule,extended release RxNorm: 554638 1 Capsule(s) PO daily 06/27/2017 06/21/2018 Active potassium chloride ER 20 mEq tablet,extended release RxNorm: 504387 Tablet(s) TAKE ONE TABLET BY MOUTH ONCE DAILY 06/21/2017 No Stop Date Active Lantus U-100 Insulin 100 unit/mL subcutaneous solution RxNorm: 688416 35 units QAM and 55 units QHS Unit(s) SQ 06/21/2017 07/20/2017 Inactive Please provide 30 day supply Percocet 10 mg-325 mg tablet RxNorm: 8384712 1-2 Tablet(s) PO Q6 PRN 06/21/2017 07/05/2017 Inactive Cartia XT 180 mg capsule,extended release RxNorm: 555112 Capsule(s) BID 06/21/2017 06/26/2017 Inactive Xanax 0.5 mg tablet RxNorm: 258504 Tablet(s) TAKE ONE TABLET BY MOUTH THREE TIMES DAILY 06/21/2017 08/19/2017 Inactive digoxin 125 mcg tablet RxNorm: 634476 1 Tablet(s) PO daily 10/18/2017 Inactive gabapentin 600 mg tablet RxNorm: 171248 Tablet(s) TAKE ONE & ONE-HALF TABLETS BY MOUTH THREE TIMES DAILY 06/21/20172017 Inactive dicyclomine 10 mg capsule RxNorm: 493082 1 Capsule(s) PO TID 07/26/2017 Inactive Lantus U-100 Insulin 100 unit/mL subcutaneous solution RxNorm: 763669 35 units QAM and 55 units QHS Unit(s) SQ 06/13/2017 06/20/2017 Inactive Please provide 30 day supply potassium chloride ER 20 mEq tablet,extended release RxNorm: 874636 TAKE ONE TABLET BY MOUTH ONCE DAILY 06/02/2017 Inactive cyclobenzaprine 10 mg tablet RxNorm: 449911 Tablet(s) TABLET(S) 1 TABLET(S) PO NEEDED TAKE 1 TABLET BY MOUTH EVERY 8 HOURS NEEDED 201711/02/2017 Inactive Tessalon Perles 100 mg capsule RxNorm: 359311 2 Capsule(s) PO TID as needed 06/01/2017 07/23/2017 Inactive promethazine 25 mg tablet RxNorm: 021654 1 Tablet(s) PO Q6 PRN 1 Tablet(s) PO Q6 PRN 05/25/2017 06/01/2017 Inactive gabapentin 600 mg tablet RxNorm: 372576 TAKE ONE & ONE-HALF TABLETS BY MOUTH THREE TIMES DAILY 05/23/2017 06/20/2017 Inactive promethazine 25 mg tablet RxNorm: 377827 1 Tablet(s) PO Q6 PRN 1 Tablet(s) PO Q6 PRN 05/19/2017 05/24/2017 Inactive Flagyl 500 mg tablet RxNorm: 291112 1 Tablet(s) PO TID 201605/26/2017 Inactive Levaquin 500 mg tablet RxNorm: 314462 1 Tablet(s) PO daily 05/16/2017 Inactive Tessalon Perles 100 mg capsule RxNorm: 494947 2 Capsule(s) PO TID as needed 05/17/2017 05/31/2017 Inactive Flagyl 500 mg tablet RxNorm: 196084 1 Tablet(s) PO TID 201605/16/2017 Inactive hyoscyamine 0.125 mg sublingual tablet RxNorm: 7782494 1 Tablet(s) SL TID as needed 05/17/2017 06/12/2017 Inactive Levaquin 500 mg tablet RxNorm: 904726 1 Tablet(s) PO daily 05/23/2017 Inactive Cymbalta 60 mg capsule,delayed release RxNorm: 527811 1 Capsule(s) PO daily take with 30mg tablet 05/16/2017 08/13/2017 Inactive Bentyl 10 mg capsule RxNorm: 308649 1 Capsule(s) PO TID as needed 05/12/2017 06/10/2017 Inactive Levsin 0.125 mg tablet RxNorm: 1019609 1 Tablet(s) PO Q4 PRN 1-2 Tablet(s) PO Q4 PRN 05/11/2017 05/11/2017 Inactive nystatin 100,000 unit/gram topical powder RxNorm: 811428 Gram(s) APPLY POWDER TOPICALLY 4 TIMES DAILY 05/11/20172017 Inactive nystatin 100,000 unit/mL oral suspension RxNorm: 938767 4 Milliliter(s) PO QID swish and swallow 05/10/2017 05/19/2017 Inactive and Monistat over the counter colestipol 1 gram tablet RxNorm: 7335828 TAKE ONE TABLET BY MOUTH TWICE DAILY 05/08/2017 03/29/2018 Inactive Lantus 100 unit/mL subcutaneous solution RxNorm: 678729 30 units QAM and 50 units QHS Unit(s) SQ 04/28/2017 05/27/2017 Inactive Please provide 30 day supply Lantus Solostar 100 unit/mL (3 mL) subcutaneous insulin pen RxNorm: 492620 Unit( s) SQ BID 04/28/2017 06/13/2017 Inactive 30 units q am and 50units at night Lantus 100 unit/mL subcutaneous solution RxNorm: 403570 30 units QAM and 50 units QHS Unit(s) SQ 04/28/2017 04/27/2017 Inactive Please provide 30 day supply Levsin 0.125 mg tablet RxNorm: 0105475 1 Tablet(s) PO Q4 PRN 1-2 Tablet(s) PO Q4 PRN 04/25/2017 05/10/2017 Inactive promethazine 25 mg tablet RxNorm: 831654 1 Tablet(s) PO Q6 PRN 1 Tablet(s) PO Q6 PRN 04/25/2017 05/02/2017 Inactive Toprol XL 100 mg tablet,extended release RxNorm: 181497 TAKE ONE TABLET BY MOUTH TWICE DAILY 04/24/2017 11/14/2017 Inactive Flagyl 500 mg tablet RxNorm: 382983 1 Tablet(s) PO TID 201604/30/2017 Inactive Levaquin 500 mg tablet RxNorm: 862136 1 Tablet(s) PO daily 05/201604/27/2017 Inactive Voltaren 1 % topical gel RxNorm: 091312 4 Gram(s) TOP QID 04/1810/14/2017 Inactive mupirocin 2 % topical ointment RxNorm: 124074 1 Application TOP BID 04/18/2017 04/27/2017 Inactive apply to sore in belly button Lantus Solostar 100 unit/mL (3 mL) subcutaneous insulin pen RxNorm: 554326 Unit( s) SQ BID 04/18/2017 04/27/2017 Inactive 20 units q am and 50units at night levothyroxine 88 mcg tablet RxNorm: 434639 1 Tablet(s) PO daily TAKE ONE TABLET BY MOUTH ONCE DAILY 04/06/2017 04/17/2017 Inactive Xanax 0.5 mg tablet RxNorm: 759411 Tablet(s) TAKE ONE TABLET BY MOUTH THREE TIMES DAILY 04/04/2017 06/02/2017 Inactive Percocet 10 mg-325 mg tablet RxNorm: 6109271 1-2 Tablet(s) PO Q6 PRN 04/04/2017 04/18/2017 Inactive cyclobenzaprine 10 mg tablet RxNorm: 170222 TAKE ONE TABLET BY MOUTH EVERY 8 HOURS NEEDED 04/03/2017 06/01/2017 Inactive potassium chloride ER 20 mEq tablet,extended release RxNorm: 829271 1 Tablet(s) PO daily 03/28/2017 06/01/2017 Inactive nystatin 100,000 unit/gram topical cream RxNorm: 480374 1 Application TOP BID 03/27/2017 04/09/2017 Inactive Levsin 0.125 mg tablet RxNorm: 4551462 1 Tablet(s) PO Q4 PRN 1-2 Tablet(s) PO Q4 PRN 03/27/2017 04/24/2017 Inactive promethazine 25 mg tablet RxNorm: 593863 1 Tablet(s) PO Q6 PRN 03/23/2017 03/29/2017 Inactive nystatin 100,000 unit/gram topical powder RxNorm: 108161 APPLY POWDER TOPICALLY 4 TIMES DAILY 03/17/2017 05/10/2017 Inactive Percocet 10 mg-325 mg tablet RxNorm: 7614817 1-2 Tablet(s) PO Q6 PRN 03/09/2017 03/23/2017 Inactive Levsin 0.125 mg tablet RxNorm: 4866351 1-2 Tablet(s) PO Q4 PRN 03/06/2017 03/26/2017 Inactive promethazine 25 mg tablet RxNorm: 197153 1 Tablet(s) PO Q6 PRN 03/06/2017 03/13/2017 Inactive potassium chloride ER 20 mEq tablet,extended release RxNorm: 370308 1 Tablet(s) PO BID 02/23/2017 03/09/2017 Inactive Levsin/SL 0.125 mg sublingual tablet RxNorm: 5969517 1-2 Tablet(s) SL Q4 PRN 02/17/2017 03/26/2017 Inactive potassium chloride ER 20 mEq tablet,extended release RxNorm: 034805 1 Tablet(s) PO BID 02/17/2017 02/21/2017 Inactive magnesium oxide 400 mg tablet RxNorm: 050160 1 Tablet(s) PO daily 02/17/2017 02/21/2017 Inactive then twice weekly thereafter Levsin 0.125 mg tablet RxNorm: 2906232 1-2 Tablet(s) PO Q4 PRN 02/17/2017 02/16/2017 Inactive promethazine 25 mg tablet RxNorm: 643269 1 Tablet(s) PO Q6 PRN 02/10/2017 03/05/2017 Inactive Percocet 10 mg-325 mg tablet RxNorm: 7029140 1-2 Tablet(s) PO Q6 PRN 02/09/2017 02/23/2017 Inactive Cymbalta 60 mg capsule,delayed release RxNorm: 184644 1 Capsule(s) PO daily take with 30mg tablet 02/06/2017 05/06/2017 Inactive Cymbalta 30 mg capsule,delayed release RxNorm: 041148 1 Capsule(s) PO daily take with 60mg tablet 02/06/2017 02/19/2018 Inactive take with 60mg=90mg Vitamin D2 50,000 unit capsule RxNorm: 927361 1 Capsule(s) PO daily 01/17/2017 01/16/2017 Inactive daily x 6 mths Tresiba FlexTouch U-100 100 unit/mL (3 mL) subcutaneous insulin pen RxNorm: 7573126 40 Unit(s) SQ daily 01/17/20172016 Inactive Tresiba FlexTouch U-100 100 unit/mL (3 mL) subcutaneous insulin pen RxNorm: 6558984 40 Unit(s) SQ daily 01/17/20172016 Inactive Vitamin D2 50,000 unit capsule RxNorm: 153293 1 Capsule(s) PO daily 01/17/2017 10/26/2017 Inactive daily x 6 mths Cymbalta 30 mg capsule,delayed release RxNorm: 891793 1 Capsule(s) PO daily 01/16/2017 02/05/2017 Inactive take with 60mg=90mg Percocet 10 mg-325 mg tablet RxNorm: 2307491 1-2 Tablet(s) PO Q6 PRN 01/13/2017 01/27/2017 Inactive gabapentin 600 mg tablet RxNorm: 733112 TAKE ONE & ONE-HALF TABLETS BY MOUTH THREE TIMES DAILY 01/10/2017 05/09/2017 Inactive Percocet 10 mg-325 mg tablet RxNorm: 8086929 1-2 Tablet(s) PO Q6 PRN 12/21/2016 01/04/2017 Inactive Xanax 0.5 mg tablet RxNorm: 009767 Tablet(s) TAKE ONE TABLET BY MOUTH THREE TIMES DAILY 12/20/2016 02/15/2017 Inactive promethazine 25 mg tablet RxNorm: 325085 1 Tablet(s) PO Q6 PRN 12/16/2016 12/18/2016 Inactive prednisone 20 mg tablet RxNorm: 369196 2 Tablet(s) PO daily 12/14/2016 Inactive prednisone 20 mg tablet RxNorm: 716689 2 Tablet(s) PO daily 03/26/2017 Inactive Eliquis 5 mg tablet RxNorm: 6575961 1 Tablet(s) PO BID 201601/11/2017 Inactive doxycycline monohydrate 100 mg tablet RxNorm: 292767 1 Tablet(s) PO BID 12/13/2016 03/26/2017 Inactive give doxycyline hyclate cyclobenzaprine 10 mg tablet RxNorm: 100920 TAKE ONE TABLET BY MOUTH EVERY 8 HOURS NEEDED 12/09/2016 12/28/2016 Inactive Cymbalta 60 mg capsule,delayed release RxNorm: 820337 TAKE ONE CAPSULE BY MOUTH ONCE DAILY 11/30/2016 02/05/2017 Inactive promethazine 25 mg tablet RxNorm: 346120 2 Tablet(s) PO Q6 PRN 11/29/2016 12/16/2016 Inactive Percocet 10 mg-325 mg tablet RxNorm: 8708510 1-2 Tablet(s) PO Q6 PRN 11/24/2016 12/08/2016 Inactive mupirocin 2 % topical ointment RxNorm: 674402 1 Application TOP BID 11/11/2016 11/24/2016 Inactive Xanax 0.5 mg tablet RxNorm: 063395 Tablet(s) TAKE ONE TABLET BY MOUTH THREE TIMES DAILY 11/11/2016 12/19/2016 Inactive Belviq 10 mg tablet RxNorm: 2265579 1 Tablet(s) PO BID 201612/10/2016 Inactive Toprol XL 100 mg tablet,extended release RxNorm: 821835 TAKE ONE TABLET BY MOUTH TWICE DAILY 11/04/2016 04/02/2017 Inactive albuterol sulfate concentrate 2.5 mg/0.5 mL solution for nebulization RxNorm: 585894 USE ONE VIAL IN NEBULIZER EVERY 4 TO 6 HOURS NEEDED 11/03/2016 11/12/2016 Inactive Percocet 10 mg-325 mg tablet RxNorm: 4578477 1-2 Tablet(s) PO Q6 PRN 10/31/2016 11/23/2016 Inactive promethazine 25 mg tablet RxNorm: 322418 2 Tablet(s) PO Q6 PRN 10/28/2016 11/28/2016 Inactive nystatin 100,000 unit/mL oral suspension RxNorm: 909252 5 Milliliter(s) PO QID 10/28/2016 11/06/2016 Inactive Levemir FlexTouch 100 unit/mL (3 mL) subcutaneous insulin pen RxNorm: 795906 45 Unit(s) SQ BID 10/28/2016 01/16/2017 Inactive 45 q am and 40 q anita cyclobenzaprine 10 mg tablet RxNorm: 041415 TAKE ONE TABLET BY MOUTH EVERY 8 HOURS NEEDED 10/21/2016 11/09/2016 Inactive Lasix 40 mg tablet RxNorm: 596367 TAKE ONE TABLET BY MOUTH TWICE DAILY 10/18/2016 04/15/2017 Inactive Percocet 10 mg-325 mg tablet RxNorm: 3432472 1-2 Tablet(s) PO Q6 PRN 10/18/2016 10/30/2016 Inactive acyclovir 400 mg tablet RxNorm: 093459 2 Tablet(s) PO QID 10/1310/22/2016 Inactive Lasix 40 mg tablet RxNorm: 923052 TAKE ONE TABLET BY MOUTH TWICE DAILY 10/10/2016 10/17/2016 Inactive ropinirole 1 mg tablet RxNorm: 535269 TAKE ONE TABLET BY MOUTH AT BEDTIME 10/10/2016 04/07/2017 Inactive nystatin 100,000 unit/mL oral suspension RxNorm: 801944 5 Milliliter(s) PO QID x 10 days 09/30/2016 10/09/2016 Inactive nystatin 100,000 unit/mL oral suspension RxNorm: 500269 5 Milliliter(s) PO QID x 10 days 09/30/2016 10/09/2016 Inactive Swish et swallow Flonase Allergy Relief 50 mcg/actuation nasal spray, suspension RxNorm: 2210200 2 Adrian NASAL daily 09/23/20162016 Inactive Percocet 10 mg-325 mg tablet RxNorm: 0537312 1-2 Tablet(s) PO Q6 PRN 09/23/2016 10/17/2016 Inactive doxycycline monohydrate 100 mg tablet RxNorm: 415860 1 Tablet(s) PO BID 09/23/2016 10/02/2016 Inactive give doxycyline hyclate Levemir FlexTouch 100 unit/mL (3 mL) subcutaneous insulin pen RxNorm: 687801 40 Unit(s) SQ BID 09/15/2016 10/27/2016 Inactive nystatin 100,000 unit/gram topical powder RxNorm: 290499 1 Application TOP QID 09/13/2016 09/22/2016 Inactive Voltaren 1 % topical gel RxNorm: 065077 4 Gram(s) TOP QID 09/1303/11/2017 Inactive Anusol-HC 25 mg rectal suppository RxNorm: 6075862 1 Suppository RTL HS 09/13/2016 09/26/2016 Inactive hydrocodone 10 mg-acetaminophen 325 mg tablet RxNorm: 836402 1-2 Tablet(s) PO Q6 as needed 09/13/2016 09/22/2016 Inactive Linzess 145 mcg capsule RxNorm: 4387010 1 Capsule(s) PO daily 09/01/2016 10/26/2017 Inactive Linzess 145 mcg capsule RxNorm: 0811427 1 Capsule(s) PO daily 09/01/2016 08/31/2016 Inactive Zofran 4 mg tablet RxNorm: 856791 TAKE ONE TABLET BY MOUTH EVERY 4 TO 6 HOURS NEEDED 08/29/2016 08/02/2017 Inactive Voltaren 1 % topical gel RxNorm: 380059 4 Gram(s) TOP QID 08/2309/12/2016 Inactive levothyroxine 88 mcg tablet RxNorm: 166459 TAKE ONE TABLET BY MOUTH ONCE DAILY 08/19/2016 12/16/2016 Inactive hydrocodone 10 mg-acetaminophen 325 mg tablet RxNorm: 228243 1 Tablet(s) PO Q6 as needed 08/17/2016 09/12/2016 Inactive nystatin 100,000 unit/gram topical powder RxNorm: 359860 1 Application TOP QID 08/16/2016 08/25/2016 Inactive Cymbalta 60 mg capsule,delayed release RxNorm: 301407 TAKE ONE CAPSULE BY MOUTH ONCE DAILY 08/10/2016 11/29/2016 Inactive Voltaren 1 % topical gel RxNorm: 402017 4 Gram(s) TOP QID 08/1008/22/2016 Inactive Voltaren 1 % topical gel RxNorm: 699955 4 Gram(s) TOP QID 08/1008/09/2016 Inactive promethazine 25 mg tablet RxNorm: 894483 TAKE ONE TABLET BY MOUTH EVERY 8 HOURS NEEDED FOR NAUSEA 07/29/20162017 Inactive nystatin 100,000 unit/gram topical powder RxNorm: 973444 1 Application TOP QID 07/26/2016 08/04/2016 Inactive Levemir FlexTouch U-100 Insulin 100 unit/mL (3 mL) subcutaneous pen RxNorm: 283001 35 Unit(s) SQ BID 07/26/201609/2016 Inactive 35 q am and 30 q pm cyclobenzaprine 10 mg tablet RxNorm: 082398 TAKE ONE TABLET BY MOUTH EVERY 8 HOURS NEEDED 07/14/2016 08/22/2016 Inactive hydrocodone 10 mg-acetaminophen 325 mg tablet RxNorm: 868640 1 Tablet(s) PO Q6 as needed 07/11/2016 08/16/2016 Inactive nystatin 100,000 unit/mL oral suspension RxNorm: 007963 5 Milliliter(s) PO QID x 10 days 07/05/2016 07/04/2016 Inactive nystatin 100,000 unit/mL oral suspension RxNorm: 235681 5 Milliliter(s) PO QID x 10 days 07/05/2016 07/04/2016 Inactive nystatin 100,000 unit/mL oral suspension RxNorm: 595695 5 Milliliter(s) PO QID x 10 days 07/05/2016 07/14/2016 Inactive Swish et swallow doxycycline monohydrate 100 mg tablet RxNorm: 522033 1 Tablet(s) PO BID 06/24/2016 07/03/2016 Inactive give doxycyline hyclate promethazine 25 mg tablet RxNorm: 507418 TAKE ONE TABLET BY MOUTH EVERY 8 HOURS NEEDED FOR NAUSEA 06/01/20162016 Inactive pantoprazole 40 mg tablet,delayed release RxNorm: 786948 1 Tablet(s) PO BID 05/25/2016 08/02/2017 Inactive Zofran 4 mg tablet RxNorm: 624597 1 Tablet(s) PO Q12 PRN TAKE 1 TABLET BY MOUTH EVERY 4 TO 6 HOURS NEEDED 05/24/2016 Inactive hydrocodone 10 mg-acetaminophen 325 mg tablet RxNorm: 747613 1 Tablet(s) PO Q6 as needed 05/24/2016 07/10/2016 Inactive Levemir FlexTouch 100 unit/mL (3 mL) subcutaneous insulin pen RxNorm: 597332 25 Unit(s) SQ BID 05/24/2016 06/22/2016 Inactive Xanax 0.5 mg tablet RxNorm: 021231 Tablet(s) TAKE ONE TABLET BY MOUTH THREE TIMES DAILY 05/11/2016 07/09/2016 Inactive BD Insulin Pen Needle UF Short 31 gauge x 5/16" RxNorm: Misc 05/06/2016 05/05/2016 Inactive BD Insulin Pen Needle UF Short 31 gauge x 16" RxNorm: Misc 05/06/2016 06/04/2016 Inactive colestipol 1 gram tablet RxNorm: 4328005 Tablet(s) TAKE 1 TABLET BY MOUTH TWICE DAILY 04/22/2016 04/16/2017 Inactive Levemir FlexTouch 100 unit/mL (3 mL) subcutaneous insulin pen RxNorm: 155128 20 Unit(s) SQ BID 04/19/2016 05/18/2016 Inactive 25 UNITS Q AM AND 20 UNITS Q HS Cartia XT 180 mg capsule,extended release RxNorm: 157826 Capsule(s) BID 04/11/2016 04/05/2017 Inactive hydrocodone 10 mg-acetaminophen 325 mg tablet RxNorm: 530640 1 Tablet(s) PO Q6 as needed 04/11/2016 05/23/2016 Inactive Levemir FlexTouch 100 unit/mL (3 mL) subcutaneous insulin pen RxNorm: 791966 20 Unit(s) SQ BID 04/11/2016 04/18/2016 Inactive 20 UNITS Q AM AND 15 UNITS Q HS X 1 WEEK THEN 20 UNITS BID levothyroxine 88 mcg tablet RxNorm: 070154 1 Tablet(s) PO daily 03/21/2016 07/18/2016 Inactive Cymbalta 60 mg capsule,delayed release RxNorm: 428273 1 Capsule(s) PO daily 03/21/2016 07/18/2016 Inactive diltiazem ER (XR/XT) 240 mg capsule,extended release, controlled RxNorm: 861201 1 Capsule(s) PO BID 03/18/20162017 Inactive doxycycline hyclate 100 mg tablet RxNorm: 293279 1 Tablet(s) PO BID 03/11/2016 03/17/2016 Inactive Levemir FlexTouch 100 unit/mL (3 mL) subcutaneous insulin pen RxNorm: 791639 10 Unit(s) SQ BID 03/11/2016 04/09/2016 Inactive Lasix 40 mg tablet RxNorm: 119387 1 Tablet(s) PO BID 201509/06/2016 Inactive gabapentin 600 mg tablet RxNorm: 035595 Tablet(s) 1.5 TABLET(S) PO TID 03/04/2016 08/30/2016 Inactive Toujeo SoloStar 300 unit/mL (1.5 mL) subcutaneous insulin pen RxNorm: 2421012 10 Unit(s) SQ QHS 02/26/2016 03/26/2016 Inactive polymyxin B sulfate 10,000 unit-trimethoprim 1 mg/mL eye drops RxNorm: 000183 2 Drop(s) OPH TID 02/26/2016 03/03/2016 Inactive Lasix 20 mg tablet RxNorm: 383196 2 Tablet(s) PO BID TAKE 2 TABLETS BY MOUTH EVERY MORNING AND 2 TABLET BY MOUTH AT 3 PM 02/26/2016 03/10/2016 Inactive cyclobenzaprine 10 mg tablet RxNorm: 123124 Tablet(s) TABLET(S) TABLET(S) 1 TABLET (S) PO NEEDED TAKE 1 TABLET BY MOUTH EVERY 8 HOURS NEEDED 02/26/2016 07/13/2016 Inactive early fill- pt lost med Levemir FlexTouch 100 unit/mL (3 mL) subcutaneous insulin pen RxNorm: 101969 16 Unit(s) SQ QHS 02/18/2016 02/17/2016 Inactive Levemir FlexTouch 100 unit/mL (3 mL) subcutaneous insulin pen RxNorm: 583101 16 Unit(s) SQ QHS 02/18/2016 02/25/2016 Inactive Levemir 100 unit/mL subcutaneous solution RxNorm: 225969 16 Unit(s) SQ QHS 02/15/2016 02/17/2016 Inactive disp needles as well Effexor XR 37.5 mg capsule,extended release RxNorm: 093569 1 Capsule(s) QPM CAPSULE(S) PO TAKE 2 CAPSULES BY MOUTH EVERY MORNING AND 1 CAPSULE BY MOUTH EVERY NIGHT AT BEDTIME 02/15/20162015 Inactive clotrimazole 100 mg vaginal tablet RxNorm: 629189 1 Tablet(s) VAG QHS 02/05/2016 02/11/2016 Inactive clotrimazole 100 mg vaginal tablet RxNorm: 346568 1 Tablet(s) VAG QHS 02/05/2016 02/04/2016 Inactive hydrocodone 10 mg-acetaminophen 325 mg tablet RxNorm: 945996 1 Tablet(s) PO Q6 as needed 02/05/2016 04/10/2016 Inactive flecainide 100 mg tablet RxNorm: 962278 1 Tablet(s) PO BID No Stop Date Active potassium chloride ER 10 mEq tablet,extended release RxNorm: 771271 1 Tablet(s) PO daily 1 TABLET(S) PO QDAY PRN TAKE WITH LASIX 02/02/2016 01/26/2017 Inactive Brovana 15 mcg/2 mL solution for nebulization RxNorm: 437676 2 Milliliter(s) INH BID PRN 02/02/2016 03/20/2016 Inactive promethazine 25 mg tablet RxNorm: 858682 1 Tablet(s) PO Q8 as needed nausea 01/27/2016 03/20/2016 Inactive promethazine 25 mg tablet RxNorm: 719274 1 Tablet(s) PO Q6 PRN 01/27/2016 02/03/2016 Inactive nystatin 100,000 unit/mL oral suspension RxNorm: 371320 5 Unit(s) PO QID 01/12/2016 01/21/2016 Inactive promethazine 25 mg tablet RxNorm: 502567 1 Tablet(s) PO Q6 PRN 12/30/2015 01/06/2016 Inactive hydrocodone 7.5 mg-acetaminophen 325 mg tablet RxNorm: 326092 1 Tablet(s) PO q 6 hours prn for pain 12/10/2015 01/06/2016 Inactive Xanax 0.5 mg tablet RxNorm: 646147 TAKE ONE TABLET BY MOUTH THREE TIMES DAILY 12/02/2015 12/31/2015 Inactive Xanax 0.5 mg tablet RxNorm: 811025 Tablet(s) TAKE 1 TABLET BY MOUTH THREE TIMES DAILY 12/02/2015 11/30/2015 Inactive Anusol-HC 25 mg rectal suppository RxNorm: 5184192 1 Suppository RTL HS 11/27/2015 09/12/2016 Inactive ropinirole 1 mg tablet RxNorm: 724933 1 Tablet(s) PO QHS 201505/24/2016 Inactive nystatin 100,000 unit/mL oral suspension RxNorm: 664246 5 Unit(s) PO QID 11/20/2015 11/29/2015 Inactive albuterol sulfate concentrate 2.5 mg/0.5 mL solution for nebulization RxNorm: 245471 3 Milliliter(s) INH Q4-6H as needed 11/10/2015 11/02/2016 Inactive doxycycline monohydrate 100 mg tablet RxNorm: 883544 1 Tablet(s) PO BID 11/10/2015 11/19/2015 Inactive give doxycyline hyclate promethazine 25 mg tablet RxNorm: 916024 1 Tablet(s) PO Q6 PRN 11/05/2015 11/12/2015 Inactive Bactroban 2 % topical ointment RxNorm: 430651 1 APPLICATION TOP BID 10/27/2015 10/26/2017 Inactive Belviq 10 mg tablet RxNorm: 7910157 1 Tablet(s) PO BID 201511/25/2015 Inactive hydrocodone 7.5 mg-acetaminophen 325 mg tablet RxNorm: 275281 1 Tablet(s) PO q 6 hours prn for pain 10/20/2015 11/18/2015 Inactive Toprol XL 100 mg tablet,extended release RxNorm: 577543 Tablet(s) TAKE 1 TABLET BY MOUTH TWICE DAILY 10/16/20152016 Inactive Diflucan 150 mg tablet RxNorm: 812952 1 Tablet(s) PO every other day 10/14/2015 10/23/2015 Inactive Xanax 0.5 mg tablet RxNorm: 212628 Tablet(s) TAKE 1 TABLET BY MOUTH THREE TIMES DAILY 10/14/2015 05/10/2016 Inactive Toprol XL 100 mg tablet,extended release RxNorm: 093545 Tablet(s) TAKE 1 TABLET BY MOUTH TWICE DAILY 10/13/20152015 Inactive cyclobenzaprine 10 mg tablet RxNorm: 642274 Tablet(s) TABLET(S) TABLET(S) 1 TABLET (S) PO NEEDED TAKE 1 TABLET BY MOUTH EVERY 8 HOURS NEEDED 10/02/2015 10/14/2015 Inactive Zofran 4 mg tablet RxNorm: 281630 Tablet(s) 1 TABLET(S) PRN TAKE 1 TABLET BY MOUTH EVERY 4 TO 6 HOURS NEEDED 09/29/2015 12/27/2015 Inactive Synthroid 88 mcg tablet RxNorm: 525629 1 Tablet(s) PO daily 1 TABLET(S) PO DAILY 09/29/2015 10/28/2015 Inactive Patient requests 90 days supply promethazine 25 mg tablet RxNorm: 550539 1 Tablet(s) PO Q6 PRN 09/29/2015 11/04/2015 Inactive Lasix 20 mg tablet RxNorm: 721519 2 Tablet(s) PO BID 201501/18/2016 Inactive promethazine 25 mg tablet RxNorm: 295802 1 Tablet(s) PO Q6 PRN 09/22/2015 09/28/2015 Inactive hydrocodone 7.5 mg-acetaminophen 325 mg tablet RxNorm: 205144 1 Tablet(s) PO q 6 hours prn for pain 09/17/2015 10/16/2015 Inactive WelChol 625 mg tablet RxNorm: 886610 3 Tablet(s) PO BID 201503/26/2017 Inactive promethazine 25 mg tablet RxNorm: 867289 1 Tablet(s) PO Q8 as needed 09/07/2015 10/26/2017 Inactive Levemir 100 unit/mL subcutaneous solution RxNorm: 987885 16 Unit(s) SQ QHS 09/01/2015 02/14/2016 Inactive pantoprazole 40 mg tablet,delayed release RxNorm: 754826 1 Tablet(s) PO daily 09/01/2015 05/24/2016 Inactive Effexor XR 37.5 mg capsule,extended release RxNorm: 817781 Capsule(s) CAPSULE(S) PO TAKE 2 CAPSULES BY MOUTH EVERY MORNING AND 1 CAPSULE BY MOUTH EVERY NIGHT AT BEDTIME 08/27/2015 02/14/2016 Inactive promethazine 25 mg tablet RxNorm: 914272 1 Tablet(s) PO Q8 as needed 08/13/2015 09/06/2015 Inactive gabapentin 600 mg tablet RxNorm: 516309 Tablet(s) 1.5 TABLET(S) PO TID 08/13/2015 02/08/2016 Inactive hydrocodone 7.5 mg-acetaminophen 325 mg tablet RxNorm: 122563 1 Tablet(s) PO q 6 hours prn for pain 08/10/2015 09/08/2015 Inactive Zofran 4 mg tablet RxNorm: 656376 Tablet(s) 1 TABLET(S) PRN TAKE 1 TABLET BY MOUTH EVERY 4 TO 6 HOURS NEEDED 08/04/2015 08/03/2015 Inactive Zofran 4 mg tablet RxNorm: 451239 Tablet(s) 1 TABLET(S) PRN TAKE 1 TABLET BY MOUTH EVERY 4 TO 6 HOURS NEEDED 08/04/2015 09/28/2015 Inactive doxycycline monohydrate 100 mg tablet RxNorm: 606168 1 Tablet(s) PO BID 08/04/2015 08/10/2015 Inactive give doxycyline hyclate Diflucan 150 mg tablet RxNorm: 940147 1 Tablet(s) PO every other day 07/31/2015 08/09/2015 Inactive nystatin 100,000 unit/mL oral suspension RxNorm: 205204 5 Milliliter(s) PO QID 07/31/2015 07/30/2015 Inactive Diflucan 150 mg tablet RxNorm: 235833 1 Tablet(s) PO every other day 07/31/2015 07/30/2015 Inactive nystatin 100,000 unit/mL oral suspension RxNorm: 982724 5 Milliliter(s) PO QID 07/31/2015 08/09/2015 Inactive Ceftin 500 mg tablet RxNorm: 073442 1 Tablet(s) PO BID 201507/23/2015 Inactive Ceftin 500 mg tablet RxNorm: 994489 1 Tablet(s) PO BID Pre-medicate with benadryl 50 mg, pepcid 20 mg, and nathanael before each dose 07/24/2015 07/30/2015 Inactive cyclobenzaprine 10 mg tablet RxNorm: 425996 TABLET(S) TABLET(S) 1 TABLET(S) PO NEEDED TAKE 1 TABLET BY MOUTH EVERY 8 HOURS NEEDED 201502/25/2016 Inactive early fill- pt lost med Synthroid 88 mcg tablet RxNorm: 613233 1 TABLET(S) PO DAILY 07/201509/28/2015 Inactive Patient requests 90 days supply cyclobenzaprine 10 mg tablet RxNorm: 398143 Tablet(s) TABLET(S) TABLET(S) 1 TABLET (S) PO NEEDED TAKE 1 TABLET BY MOUTH EVERY 8 HOURS NEEDED 07/23/2015 10/01/2015 Inactive early fill- pt lost med Promethazine VC 6.25 mg-5 mg/5 mL syrup RxNorm: 3312276 1-2 Teaspoon(s) PO Q6 PRN as needed 07/22/2015 03/20/2016 Inactive Diflucan 150 mg tablet RxNorm: 349542 1 Tablet(s) PO daily 06/201507/22/2015 Inactive Lasix 20 mg tablet RxNorm: Tablet(s) TAKE 2 TABLETS BY MOUTH EVERY MORNING AND 2 TABLET BY MOUTH AT 3PM 07/16/2015 09/21/2015 Inactive Toprol XL 100 mg tablet,extended release RxNorm: 054213 Tablet(s) TAKE 1 TABLET BY MOUTH TWICE DAILY 07/16/20152015 Inactive Cartia XT 180 mg capsule,extended release RxNorm: 777877 Capsule(s) 1 CAPSULE(S) PO DAILY TAKE 1 CAPSULE BY MOUTH AT BEDTIME ..TAKE THIS IN ADDITION TO 240 MG IN THE MORNING 07/14/2015 04/10/2016 Inactive diltiazem ER (XR/XT) 240 mg capsule,extended release, controlled RxNorm: 720378 Capsule(s) TAKE 1 CAPSULE BY MOUTH DAILY 07/14/2015 03/17/2016 Inactive gabapentin 600 mg tablet RxNorm: 129624 Tablet(s) 1.5 TABLET(S) PO TID 07/06/2015 08/12/2015 Inactive Phenergan 25 mg tablet RxNorm: 993663 1 Tablet(s) PO Q8 as needed nausea 06/29/2015 01/25/2016 Inactive doxycycline monohydrate 100 mg tablet RxNorm: 354031 1 Tablet(s) PO BID 06/29/2015 06/28/2015 Inactive doxycycline monohydrate 100 mg tablet RxNorm: 495397 1 Tablet(s) PO BID 06/29/2015 07/08/2015 Inactive give doxycyline hyclate doxycycline monohydrate 100 mg tablet RxNorm: 240540 1 Tablet(s) PO BID 06/29/2015 06/28/2015 Inactive Lasix 20 mg tablet RxNorm: Tablet(s) TAKE 2 TABLETS BY MOUTH EVERY MORNING AND 2 TABLET BY MOUTH AT 3PM 06/29/2015 07/15/2015 Inactive Lasix 20 mg tablet RxNorm: Tablet(s) TAKE 2 TABLETS BY MOUTH EVERY MORNING AND 1 TABLET BY MOUTH AT 3PM 06/26/2015 06/28/2015 Inactive Xanax 0.5 mg tablet RxNorm: 586880 Tablet(s) TAKE 1 TABLET BY MOUTH THREE TIMES DAILY 06/26/2015 07/25/2015 Inactive Kenalog 40 mg/mL suspension for injection RxNorm: 0103163 Milliliter(s) Inj 06/26/2015 06/26/2015 Inactive hydrocodone 7.5 mg-acetaminophen 325 mg tablet RxNorm: 930873 1 Tablet(s) PO q 6 hours prn for pain 06/26/2015 07/25/2015 Inactive Dexilant 60 mg capsule, delayed release RxNorm: 272024 1 Capsule(s) PO daily 06/26/2015 08/24/2015 Inactive colestipol 1 gram tablet RxNorm: 5906850 1 TABLET(S) PO BID TAKE 1 TABLET BY MOUTH TWICE DAILY 06/16/2015 03/11/2016 Inactive hydrocodone 7.5 mg-acetaminophen 325 mg tablet RxNorm: 510689 1 Tablet(s) PO q 6 hours prn for pain 06/11/2015 06/25/2015 Inactive cyclobenzaprine 10 mg tablet RxNorm: 085114 TABLET(S) TABLET(S) 1 TABLET(S) PO NEEDED TAKE 1 TABLET BY MOUTH EVERY 8 HOURS NEEDED 201507/22/2015 Inactive early fill- pt lost med Zofran 4 mg tablet RxNorm: 578734 1 TABLET(S) PRN TAKE 1 TABLET BY MOUTH EVERY 4 TO 6 HOURS NEEDED 05/25/20152015 Inactive Zofran 4 mg tablet RxNorm: 779156 1 Tablet(s) PRN TAKE 1 TABLET BY MOUTH EVERY 4 TO 6 HOURS NEEDED 05/19/20152015 Inactive gabapentin 600 mg tablet RxNorm: 857078 1.5 TABLET(S) PO TID 07/05/2015 Inactive Lasix 20 mg tablet RxNorm: 725924 TAKE 2 TABLETS BY MOUTH EVERY MORNING AND 1 TABLET BY MOUTH AT 3PM 05/07/20152015 Inactive Effexor XR 37.5 mg capsule,extended release RxNorm: 195929 Capsule(s) CAPSULE(S) PO TAKE 2 CAPSULES BY MOUTH EVERY MORNING AND 1 CAPSULE BY MOUTH EVERY NIGHT AT BEDTIME 04/15/2015 08/26/2015 Inactive Diflucan 150 mg tablet RxNorm: 734799 1 Tablet(s) PO daily 04/18/2015 Inactive Victoza 3-Babak 0.6 mg/0.1 mL (18 mg/3 mL) subcutaneous pen injector RxNorm: 420872 1.8 Milligram(s) SQ daily 04/14/201508/10 Inactive Levaquin 500 mg tablet RxNorm: 902574 1 Tablet(s) PO daily 04/20/2015 Inactive potassium chloride ER 10 mEq tablet,extended release RxNorm: 534184 1 TABLET(S) PO QDAY PRN TAKE WITH LASIX 04/13/201504/2016 Inactive Effexor XR 37.5 mg capsule,extended release RxNorm: 213111 CAPSULE(S) PO TAKE 2 CAPSULES BY MOUTH EVERY MORNING AND 1 CAPSULE BY MOUTH EVERY NIGHT AT BEDTIME 04/10/2015 04/14/2015 Inactive pantoprazole 40 mg tablet,delayed release RxNorm: 119902 1 Tablet(s) PO daily 03/31/2015 08/31/2015 Inactive Dexilant 60 mg capsule, delayed release RxNorm: 017574 1 Capsule(s) PO daily 03/31/2015 03/31/2015 Inactive pantoprazole 40 mg tablet,delayed release RxNorm: 386727 1 Tablet(s) PO daily 03/31/2015 03/30/2015 Inactive Dexilant 60 mg capsule, delayed release RxNorm: 448249 1 Capsule(s) PO daily 03/31/2015 05/29/2015 Inactive Dexilant 60 mg capsule, delayed release RxNorm: 699742 1 Capsule(s) PO daily 03/30/2015 03/30/2015 Inactive hydrocodone 7.5 mg-acetaminophen 325 mg tablet RxNorm: 913363 1 Tablet(s) PO q 6 hours prn for pain 03/30/2015 04/28/2015 Inactive cyclobenzaprine 10 mg tablet RxNorm: 548699 TABLET(S) TABLET(S) 1 TABLET(S) PO NEEDED TAKE 1 TABLET BY MOUTH EVERY 8 HOURS NEEDED 201405/31/2015 Inactive early fill- pt lost med Xanax 0.5 mg tablet RxNorm: 925753 Tablet(s) TAKE 1 TABLET BY MOUTH THREE TIMES DAILY 03/25/2015 04/23/2015 Inactive Lasix 20 mg tablet RxNorm: 729998 TAKE 2 TABLETS BY MOUTH EVERY MORNING AND 1 TABLET BY MOUTH AT 3PM 03/23/20152014 Inactive Levemir Flexpen 100 unit/mL (3 mL) solution subcutaneous insulin pen RxNorm: 052414 15 Unit(s) SQ BID 03/20/20152015 Inactive give quanity sufficient for 1 month- Dexilant 60 mg capsule, delayed release RxNorm: 746052 1 Capsule(s) PO daily 03/19/2015 03/29/2015 Inactive Dexilant 60 mg capsule, delayed release RxNorm: 092183 1 Capsule(s) PO daily 03/19/2015 03/18/2015 Inactive Diflucan 150 mg tablet RxNorm: 985923 1 Tablet(s) PO every other day x7 doses 03/19/2015 03/21/2015 Inactive hydrocodone 7.5 mg-acetaminophen 325 mg tablet RxNorm: 626672 1 Tablet(s) PO q 6 hours prn for pain 02/27/2015 03/28/2015 Inactive Lasix 20 mg tablet RxNorm: 595579 TAKE 2 TABLETS BY MOUTH EVERY MORNING AND 1 TABLET BY MOUTH AT 3PM 02/27/20152014 Inactive omeprazole 20 mg capsule,delayed release RxNorm: 456899 1 CAPSULE(S) PO DAILY TAKE 1 CAPSULE BY MOUTH TWICE DAILY 02/26/2015 10/26/2017 Inactive Zofran 4 mg tablet RxNorm: 110063 1 Tablet(s) PRN TAKE 1 TABLET BY MOUTH EVERY 4 TO 6 HOURS NEEDED 02/24/20152014 Inactive fluconazole 150 mg tablet RxNorm: 399434 1 Tablet(s) PO every other day x 5 doses 02/19/2015 02/28/2015 Inactive cyclobenzaprine 10 mg tablet RxNorm: 740342 TABLET(S) TABLET(S) 1 TABLET(S) PO NEEDED TAKE 1 TABLET BY MOUTH EVERY 8 HOURS NEEDED 201403/29/2015 Inactive early fill- pt lost med hydrocodone 7.5 mg-acetaminophen 325 mg tablet RxNorm: 256273 1 Tablet(s) PO q 6 hours prn for pain 01/29/2015 02/26/2015 Inactive Xanax 0.5 mg tablet RxNorm: 840713 Tablet(s) TAKE 1 TABLET BY MOUTH THREE TIMES DAILY 01/29/2015 02/27/2015 Inactive Bactroban 2 % topical ointment RxNorm: 622900 1 APPLICATION TOP BID 01/26/2015 10/26/2015 Inactive Bactroban 2 % topical ointment RxNorm: 364952 1 Application TOP BID 01/15/2015 01/25/2015 Inactive doxycycline hyclate 100 mg tablet RxNorm: 162531 1 Tablet(s) PO BID 01/15/2015 01/21/2015 Inactive nystatin 100,000 unit/mL oral suspension RxNorm: 044644 5 Milliliter(s) PO QID 01/15/2015 01/24/2015 Inactive Cartia XT 180 mg capsule,extended release RxNorm: 960085 1 CAPSULE(S) PO DAILY TAKE 1 CAPSULE BY MOUTH AT BEDTIME ..TAKE THIS IN ADDITION TO 240 MG IN THE MORNING 01/13/2015 07/13/2015 Inactive Lasix 20 mg tablet RxNorm: TAKE 2 TABLETS BY MOUTH EVERY MORNING AND 1 TABLET BY MOUTH AT 3PM 01/08/20152014 Inactive fluconazole 150 mg tablet RxNorm: 090869 1 Tablet(s) PO daily 01/01/2015 01/05/2015 Inactive hydrocodone 7.5 mg-acetaminophen 325 mg tablet RxNorm: 680470 1 Tablet(s) PO q 6 hours prn for pain 01/01/2015 01/28/2015 Inactive colestipol 1 gram tablet RxNorm: 9028949 1 TABLET(S) PO BID TAKE 1 TABLET BY MOUTH TWICE DAILY 12/18/2014 06/15/2015 Inactive colestipol 1 gram tablet RxNorm: 1419008 1 TABLET(S) PO BID TAKE 1 TABLET BY MOUTH TWICE DAILY 12/18/2014 09/13/2015 Inactive Lasix 20 mg tablet RxNorm: TAKE 2 TABLETS BY MOUTH EVERY MORNING AND 2 TABLETS AND AT 3PM 12/11/2014 12/25/2014 Inactive cyclobenzaprine 10 mg tablet RxNorm: 198750 TABLET(S) 1 TABLET(S) PO NEEDED TAKE 1 TABLET BY MOUTH EVERY 8 HOURS NEEDED 12/11/2014 05/31/2017 Inactive Lasix 20 mg tablet RxNorm: 048753 Tablet(s) TABLET(S) PO TAKE 2 TABLETS BY MOUTH EVERY MORNING AND 1 TABLET BY MOUTH AT 3 PM 12/10/2014 12/10/2014 Inactive fill early- pt lost them cyclobenzaprine 10 mg tablet RxNorm: 853584 Tablet(s) TABLET(S) 1 TABLET(S) PO NEEDED TAKE 1 TABLET BY MOUTH EVERY 8 HOURS NEEDED 201402/15/2015 Inactive early fill- pt lost med cyclobenzaprine 10 mg tablet RxNorm: 455227 TABLET(S) 1 TABLET(S) PO NEEDED TAKE 1 TABLET BY MOUTH EVERY 8 HOURS NEEDED 12/02/2014 12/09/2014 Inactive hydrocodone 7.5 mg-acetaminophen 325 mg tablet RxNorm: 093140 1 Tablet(s) PO q 6 hours prn for pain 12/01/2014 12/30/2014 Inactive diltiazem ER (XR/XT) 240 mg capsule,extended release, controlled RxNorm: 918853 TAKE 1 CAPSULE BY MOUTH DAILY 11/30/2014 07/13/2015 Inactive Xanax 0.5 mg tablet RxNorm: 346983 1 Tablet(s) PO TID PRN as needed 11/19/2014 11/19/2014 Inactive (Appended: Controlled substance eRx refill - RxReferenceNumber: [id number]|1|0|1) Xanax 0.5 mg tablet RxNorm: 831766 TAKE 1 TABLET BY MOUTH THREE TIMES DAILY 11/19/2014 12/18/2014 Inactive Toprol XL 100 mg tablet,extended release RxNorm: 128226 TAKE 1 TABLET BY MOUTH TWICE DAILY 11/06/2014 07/15/2015 Inactive Diflucan 150 mg tablet RxNorm: 146166 1 Tablet(s) PO every other day x7 doses 11/05/2014 11/07/2014 Inactive omeprazole 20 mg capsule,delayed release RxNorm: 813695 1 Capsule(s) PO daily TAKE 1 CAPSULE BY MOUTH TWICE DAILY 11/04/2014 02/01/2015 Inactive cyclobenzaprine 10 mg tablet RxNorm: 241805 TABLET(S) 1 TABLET(S) PO NEEDED TAKE 1 TABLET BY MOUTH EVERY 8 HOURS NEEDED 10/28/2014 12/01/2014 Inactive hydrocodone 7.5 mg-acetaminophen 325 mg tablet RxNorm: 389478 1 Tablet(s) PO q 6 hours prn for pain 10/21/2014 11/19/2014 Inactive gabapentin 600 mg tablet RxNorm: 437587 1.5 Tablet(s) PO TID 04/30/2015 Inactive Xanax 0.5 mg tablet RxNorm: 428133 Tablet(s) TAKE 1 TABLET BY MOUTH THREE TIMES DAILY 10/01/2014 10/30/2014 Inactive (Response to an electronic controlled substance refill request - RxReferenceNumber: [id number]|1|0|1) Xanax 0.25 mg tablet RxNorm: 000592 1 Tablet(s) PO Q8 PRN as needed 09/30/2014 09/30/2014 Inactive Lasix 20 mg tablet RxNorm: 764819 Tablet(s) TAKE 2 TABLETS BY MOUTH EVERY MORNING AND 2 TABLETS BY MOUTH AT 3 PM 09/30/2014 11/12/2014 Inactive Victoza 3-Babak 0.6 mg/0.1 mL (18 mg/3 mL) subcutaneous pen injector RxNorm: 665027 1.2 MILLIGRAM(S) SQ DAILY 0.6 X 2 WEEKS THEN INCREASE TO 1.2MG DAILY 09/26/2014 04/13/2015 Inactive Xanax 0.5 mg tablet RxNorm: 630581 TAKE 1 TABLET BY MOUTH THREE TIMES DAILY 09/25/2014 09/30/2014 Inactive (Response to an electronic controlled substance refill request - RxReferenceNumber: [id number]|1|0|1) Zofran 4 mg tablet RxNorm: 389893 TAKE 1 TABLET BY MOUTH EVERY 4 TO 6 HOURS NEEDED 09/25/2014 09/27/2014 Inactive hydrocodone 7.5 mg-acetaminophen 325 mg tablet RxNorm: 219346 1 Tablet(s) PO q 6 hours prn for pain 09/19/2014 10/18/2014 Inactive cyclobenzaprine 10 mg tablet RxNorm: 180372 TABLET(S) 1 TABLET(S) PO NEEDED TAKE 1 [...] hydrocodone 7.5 mg-acetaminophen 325 mg tablet RxNorm: 635383 1 Tablet(s) PO q 6 hours prn for pain 08/21/2014 09/18/2014 Inactive Diflucan 150 mg tablet RxNorm: 463355 1 Tablet(s) PO every other day 08/15/2014 08/17/2014 Inactive cyclobenzaprine 10 mg tablet RxNorm: 436312 Tablet(s) 1 TABLET(S) PO NEEDED TAKE 1 TABLET BY MOUTH EVERY 8 HOURS NEEDED 08/12/2014 09/14/2014 Inactive Zofran 4 mg tablet RxNorm: 883309 TAKE 1 TABLET BY MOUTH EVERY 4 TO 6 HOURS NEEDED 07/31/2014 08/02/2014 Inactive Effexor XR 37.5 mg capsule,extended release RxNorm: 360771 CAPSULE(S) PO TAKE 2 CAPSULES BY MOUTH EVERY MORNING AND 1 CAPSULE BY MOUTH EVERY NIGHT AT BEDTIME 07/28/2014 02/15/2016 Inactive Lasix 20 mg tablet RxNorm: 345791 TAKE 2 TABLETS BY MOUTH EVERY MORNING AND 2 TABLETS BY MOUTH AT 3 PM 07/22/20142014 Inactive Diflucan 150 mg tablet RxNorm: 902905 1 Tablet(s) PO daily 06/201407/23/2014 Inactive hydrocodone 7.5 mg-acetaminophen 325 mg tablet RxNorm: 701568 1 Tablet(s) PO q 6 hours prn for pain 07/14/2014 08/12/2014 Inactive Synthroid 88 mcg tablet RxNorm: 201016 1 TABLET(S) PO DAILY 10/11/2014 Inactive Effexor XR 37.5 mg capsule,extended release RxNorm: 058031 Capsule(s) PO TAKE 2 CAPSULES BY MOUTH EVERY MORNING AND 1 CAPSULE BY MOUTH EVERY NIGHT AT BEDTIME 07/07/2014 04/09/2015 Inactive Effexor XR 37.5 mg capsule,extended release RxNorm: 010846 TAKE 2 CAPSULES BY MOUTH EVERY MORNING AND 1 CAPSULE BY MOUTH EVERY NIGHT AT BEDTIME 07/07/2014 01/02/2015 Inactive WelChol 625 mg tablet RxNorm: 982136 3 TABLET(S) PO BID 201410/04/2014 Inactive WelChol 625 mg tablet RxNorm: 166045 3 Tablet(s) PO BID 201402/01/2015 Inactive Zofran 4 mg tablet RxNorm: 620854 TAKE 1 TABLET BY MOUTH EVERY 4 TO 6 HOURS NEEDED 07/03/2014 07/05/2014 Inactive Lasix 20 mg tablet RxNorm: 219558 TAKE 2 TABLETS BY MOUTH EVERY MORNING AND 2 TABLETS BY MOUTH AT 3 PM 06/26/20142014 Inactive Diflucan 150 mg tablet RxNorm: 426548 1 Tablet(s) PO daily 06/19/2014 Inactive Promethazine VC 6.25 mg-5 mg/5 mL syrup RxNorm: 1945634 1-2 Teaspoon(s) PO Q6 PRN as needed 06/12/2014 07/21/2015 Inactive hydrocodone 7.5 mg-acetaminophen 325 mg tablet RxNorm: 645799 1 Tablet(s) PO q 6 hours prn for pain 06/03/2014 07/02/2014 Inactive Levaquin 500 mg tablet RxNorm: 219880 1 Tablet(s) PO daily 01/201506/05/2014 Inactive cyclobenzaprine 10 mg tablet RxNorm: 879360 Tablet(s) 1 TABLET(S) PO NEEDED TAKE 1 TABLET BY MOUTH EVERY 8 HOURS NEEDED 05/26/2014 No Stop Date Active cyclobenzaprine 10 mg tablet RxNorm: 929661 1 TABLET(S) PO NEEDED TAKE 1 TABLET BY MOUTH EVERY 8 HOURS NEEDED 05/26/2014 08/11/2014 Inactive Lasix 20 mg tablet RxNorm: 085219 Tablet(s) TABLET(S) PO TAKE 2 TABLETS BY MOUTH EVERY MORNING AND 2 TABLET BY MOUTH AT 3 PM 05/12/2014 06/25/2014 Inactive Combivent Respimat 20 mcg-100 mcg/actuation solution for inhalation RxNorm: 6956674 INHALE 1 PUFF BY MOUTH FOUR TIMES DAILY 05/12/2014 11/07/2014 Inactive fluconazole 150 mg tablet RxNorm: 364896 1 Tablet(s) PO UD 05/12/2014 Inactive 1 tab every other day x 5 doses Activella 0.5 mg-0.1 mg tablet RxNorm: 4467865 1 TABLET(S) PO DAILY TAKE 1 TABLET BY MOUTH DAILY FOR MENOPAUSAL SYMPTOM 05/02/2014 09/21/2015 Inactive hydrocodone 7.5 mg-acetaminophen 300 mg tablet RxNorm: 222022 Tablet(s) PO TAKE 1 TABLET BY MOUTH EVERY 6 HOURS NEEDED FOR PAIN 04/21/2014 06/03/2014 Inactive ( Appended: Controlled substance eRx refill - RxReferenceNumber: [id number]|1|0|1 ) Levaquin 500 mg tablet RxNorm: 786562 1 Tablet(s) PO daily 04/21/2014 Inactive Diflucan 150 mg tablet RxNorm: 654096 1 Tablet(s) PO every other day x 4 doses 04/10/2014 06/16/2014 Inactive Lasix 20 mg tablet RxNorm: 863131 TAKE 2 TABLETS BY MOUTH EVERY MORNING AND 1 TABLET BY MOUTH AT 3 PM 04/10/20142013 Inactive potassium chloride ER 10 mEq tablet,extended release RxNorm: 062536 1 TABLET(S) PO QDAY PRN TAKE WITH LASIX 04/09/2014 Inactive Levaquin 250 mg tablet RxNorm: 103843 1 Tablet(s) PO daily 08/201304/07/2014 Inactive 2 tabs today then 1 tab daily until gone atorvastatin 40 mg tablet RxNorm: 943411 1 Tablet(s) daily 1 TABLET(S) PO DAILY 03/25/2014 04/10/2016 Inactive TAKE 1 TABLET BY MOUTH DAILY (THIS IS AN INCREASE IN DOSAGE) Zofran 4 mg tablet RxNorm: 868709 1 Tablet(s) PO Q4-6H 201307/02/2014 Inactive Xanax 0.5 mg tablet RxNorm: 860620 TAKE 1 TABLET BY MOUTH THREE TIMES DAILY NEEDED 03/19/2014 04/17/2014 Inactive (Response to an electronic controlled substance refill request - RxReferenceNumber: [id number]|1|0|1) hydrocodone 7.5 mg-acetaminophen 300 mg tablet RxNorm: 466901 Tablet(s) PO TAKE 1 TABLET BY MOUTH EVERY 6 HOURS NEEDED FOR PAIN 03/19/2014 04/20/2014 Inactive ( Appended: Controlled substance eRx refill - RxReferenceNumber: [id number]|1|0|1 ) atorvastatin 40 mg tablet RxNorm: 621681 1 TABLET(S) PO DAILY 03/10/2014 03/24/2014 Inactive TAKE 1 TABLET BY MOUTH DAILY (THIS IS AN INCREASE IN DOSAGE) WelChol 625 mg tablet RxNorm: 837939 3 Tablet(s) PO BID 201303/06/2014 Inactive WelChol 625 mg tablet RxNorm: 485369 3 Tablet(s) PO BID 201307/04/2014 Inactive Lasix 20 mg tablet RxNorm: 407564 Tablet(s) TABLET(S) PO TAKE 2 TABLETS BY MOUTH EVERY MORNING AND 2 TABLET BY MOUTH AT 3 PM 03/03/2014 05/11/2014 Inactive Lasix 20 mg tablet RxNorm: 294882 TABLET(S) PO TAKE 2 TABLETS BY MOUTH EVERY MORNING AND 1 TABLET BY MOUTH AT 3 PM 02/20/2014 03/02/2014 Inactive gabapentin 600 mg tablet RxNorm: 043263 1.5 Tablet(s) PO TID 09/16/2014 Inactive Synthroid 88 mcg tablet RxNorm: 774498 1 TABLET(S) PO DAILY 05/18/2014 Inactive cyclobenzaprine 10 mg tablet RxNorm: 022494 1 TABLET(S) PO NEEDED TAKE 1 TABLET BY MOUTH EVERY 8 HOURS NEEDED 02/18/2014 05/25/2014 Inactive doxycycline hyclate 100 mg tablet RxNorm: 073264 1 Tablet(s) PO BID 02/13/2014 02/22/2014 Inactive Bactroban 2 % topical ointment RxNorm: 639033 1 Application TOP BID 02/13/2014 03/12/2014 Inactive Victoza 3-Babak 0.6 mg/0.1 mL (18 mg/3 mL) subcutaneous pen injector RxNorm: 334444 1.2 MILLIGRAM(S) SQ DAILY 0.6 X 2 WEEKS THEN INCREASE TO 1.2MG DAILY 02/10/2014 05/10/2014 Inactive albuterol sulfate 1.25 mg/3 mL solution for nebulization RxNorm: 254963 3 MILLILITER(S) INH TID 02/07/20142014 Inactive 1 box Victoza 3-Babak 0.6 mg/0.1 mL (18 mg/3 mL) subcutaneous pen injector RxNorm: 020736 1.8 Milligram(s) SQ daily 0.6 x 2 weeks then increase to 1.2mg daily 01/27/2014 05/26/2014 Inactive Levemir Flexpen 100 unit/mL (3 mL) solution subcutaneous insulin pen RxNorm: 521234 5units sq at hs, increase by 3 Unit(s) SQ at hs every 3days, goal FSBS 170 or less, do not increase above 20units, call doctor with report 01/27/2014 05/26/2014 Inactive hydrocodone 7.5 mg-acetaminophen 300 mg tablet RxNorm: 162023 Tablet(s) PO TAKE 1 TABLET BY MOUTH EVERY 6 HOURS NEEDED FOR PAIN 01/24/2014 03/18/2014 Inactive ( Appended: Controlled substance eRx refill - RxReferenceNumber: [id number]|1|0|1 ) Xanax 0.5 mg tablet RxNorm: 620507 1 Tablet(s) PO TID PRN as needed 01/24/2014 09/21/2014 Inactive (Appended: Controlled substance eRx refill - RxReferenceNumber: [id number]|1|0|1) Xanax 0.5 mg tablet RxNorm: 795884 TAKE 1 TABLET BY MOUTH THREE TIMES DAILY NEEDED 01/23/2014 02/21/2014 Inactive (Response to an electronic controlled substance refill request - RxReferenceNumber: [id number]|1|0|1) hydrocodone 5 mg-acetaminophen 325 mg tablet RxNorm: 510241 TAKE 1 TABLET BY MOUTH EVERY 6 HOURS NEEDED FOR PAIN 01/21/2014 02/19/2014 Inactive (Response to an electronic controlled substance refill request - RxReferenceNumber: [id number]| [id number]|1|0|1) Lasix 20 mg tablet RxNorm: 528410 TAKE 2 TABLETS BY MOUTH EVERY MORNING AND 1 TABLET BY MOUTH AT 3 PM 01/17/20142013 Inactive cyclobenzaprine 10 mg tablet RxNorm: 753782 1 Tablet(s) PO as needed TAKE 1 TABLET BY MOUTH EVERY 8 HOURS NEEDED 01/13/2014 02/17/2014 Inactive Anusol-HC 25 mg suppository RxNorm: 9963343 1 SUPPOSITORY RTL PRN ONE PER RECTUM NEEDED, UP TO TWICE DAILY FOR HEMORRHOID, NO MORE THAN 7 DAYS IN A ROW 01/10/2014 02/06/2014 Inactive Activella 0.5 mg-0.1 mg tablet RxNorm: 4026017 1 Tablet(s) PO daily TAKE 1 TABLET BY MOUTH DAILY FOR MENOPAUSAL SYMPTOM 01/08/2014 05/01/2014 Inactive gabapentin 600 mg tablet RxNorm: 320135 1.5 Tablet(s) PO TID 02/18/2014 Inactive gabapentin 600 mg tablet RxNorm: 247198 1.5 Tablet(s) PO TID 01/01/2014 Inactive hydrocodone 7.5 mg-acetaminophen 300 mg tablet RxNorm: 468447 Tablet(s) PO TAKE 1 TABLET BY MOUTH EVERY 6 HOURS NEEDED FOR PAIN 12/12/2013 01/23/2014 Inactive ( Appended: Controlled substance eRx refill - RxReferenceNumber: [id number]|1|0|1 ) Levaquin 250 mg tablet RxNorm: 895446 1 Tablet(s) PO daily 12/18/2013 Inactive 2 tabs today then 1 tab daily until gone Diflucan 150 mg tablet RxNorm: 398172 1 Tablet(s) PO daily 12/16/2013 Inactive do not stat until levaquin is completed Cartia XT 180 mg capsule,extended release RxNorm: 696410 1 CAPSULE(S) PO DAILY TAKE 1 CAPSULE BY MOUTH AT BEDTIME ..TAKE THIS IN ADDITION TO 240 MG IN THE MORNING 12/12/2013 12/06/2014 Inactive diltiazem ER (XR/XT) 240 mg capsule,extended release, controlled RxNorm: 696027 1 Capsule(s) PO daily TAKE 1 CAPSULE BY MOUTH EVERY DAY 11/28/2014 Inactive Effexor XR 37.5 mg capsule,extended release RxNorm: 068476 Capsule(s) PO TAKE 2 CAPSULES BY MOUTH EVERY MORNING AND 1 CAPSULE BY MOUTH EVERY NIGHT AT BEDTIME 12/04/2013 07/06/2014 Inactive Lasix 20 mg tablet RxNorm: 852352 TABLET(S) PO TAKE 2 TABLETS BY MOUTH EVERY MORNING AND 1 TABLET BY MOUTH AT 3 PM 12/04/2013 12/09/2014 Inactive Voltaren 1 % topical gel RxNorm: 616385 4 Gram(s) TOP QID 11/2703/26/2014 Inactive Cartia XT 180 mg capsule,extended release RxNorm: 505212 1 Capsule(s) PO daily TAKE 1 CAPSULE BY MOUTH AT BEDTIME ..TAKE THIS IN ADDITION TO 240 MG IN THE MORNING 11/27/2013 01/12/2015 Inactive Lasix 20 mg tablet RxNorm: TABLET(S) PO TAKE 2 TABLETS BY MOUTH EVERY MORNING AND 1 TABLET BY MOUTH AT 3 PM 11/26/2013 02/19/2014 Inactive colestipol 1 gram tablet RxNorm: 2715729 1 Tablet(s) PO BID TAKE 1 TABLET BY MOUTH TWICE DAILY 11/26/2013 11/20/2014 Inactive cyclobenzaprine 10 mg tablet RxNorm: 361973 Tablet(s) PO TAKE 1 TABLET BY MOUTH EVERY 8 HOURS NEEDED 11/21/20132013 Inactive Diflucan 150 mg tablet RxNorm: 152245 1 Tablet(s) PO daily TAKE 1 TABLET BY MOUTH EVERY OTHER DAY FOR 8 DOSES 11/14/201306/2013 Inactive peak flow meter-inh assist dev kit RxNorm: 1 dose Miscellaneous PRN 11/14/2013 10/27/2017 Inactive Effexor XR 37.5 mg capsule,extended release RxNorm: 878281 Capsule(s) PO TAKE 2 CAPSULES BY MOUTH EVERY MORNING AND 1 CAPSULE BY MOUTH EVERY NIGHT AT BEDTIME 11/04/2013 12/03/2013 Inactive Anusol-HC 25 mg suppository RxNorm: 1101316 1 Suppository RTL PRN one per rectum as needed, up to twice daily for hemorrhoid, no more than 7 days in a row 10/23/2013 10/22/2013 Inactive Anusol-HC 25 mg suppository RxNorm: 6060652 1 Suppository RTL PRN one per rectum as needed, up to twice daily for hemorrhoid, no more than 7 days in a row 10/23/2013 01/09/2014 Inactive Activella 0.5 mg-0.1 mg tablet RxNorm: 4541195 Tablet(s) PO TAKE 1 TABLET BY MOUTH DAILY FOR MENOPAUSAL SYMPTOM 10/21/2013 01/07/2014 Inactive cyclobenzaprine 10 mg tablet RxNorm: 381720 Tablet(s) PO TAKE 1 TABLET BY MOUTH EVERY 8 HOURS NEEDED 10/21/20132013 Inactive Lasix 20 mg tablet RxNorm: Tablet(s) PO TAKE 2 TABLETS BY MOUTH EVERY MORNING AND 1 TABLET BY MOUTH AT 3 PM 10/17/2013 02/25/2016 Inactive Bactroban 2 % topical ointment RxNorm: 035459 1 Application TOP BID 10/10/2013 11/06/2013 Inactive Zofran 4 mg tablet RxNorm: 336237 1 Tablet(s) PO Q4-6H 201303/20/2014 Inactive Bactroban 2 % topical ointment RxNorm: 113494 1 Application TOP BID 09/27/2013 10/09/2013 Inactive hydrocodone 5 mg-acetaminophen 325 mg tablet RxNorm: 631751 Tablet(s) PO TAKE 1 TABLET BY MOUTH EVERY 6 HOURS NEEDED FOR PAIN 09/26/2013 12/11/2013 Inactive ( Appended: Controlled substance eRx refill - RxReferenceNumber: [id number]|1|0|1 ) hydrocodone 5 mg-acetaminophen 325 mg tablet RxNorm: 088628 1 Tablet(s) PO Q6 PRN 09/26/2013 01/24/2014 Inactive cyclobenzaprine 10 mg tablet RxNorm: 587071 Tablet(s) PO TAKE 1 TABLET BY MOUTH EVERY 8 HOURS NEEDED 09/16/2013 No Stop Date Active omeprazole 20 mg capsule,delayed release RxNorm: 257832 Capsule(s) PO TAKE 1 CAPSULE BY MOUTH TWICE DAILY 09/02/2013 Inactive Lasix 20 mg tablet RxNorm: 632381 Tablet(s) PO TAKE 2 TABLETS BY MOUTH EVERY MORNING AND 1 TABLET BY MOUTH AT 3 PM 09/02/2013 04/10/2016 Inactive Diflucan 150 mg tablet RxNorm: 946322 Tablet(s) PO TAKE 1 TABLET BY MOUTH EVERY OTHER DAY FOR 8 DOSES 08/29/20132013 Inactive Effexor XR 37.5 mg capsule,extended release RxNorm: 492860 Capsule(s) PO TAKE 2 CAPSULES BY MOUTH EVERY MORNING AND 1 CAPSULE BY MOUTH EVERY NIGHT AT BEDTIME 08/29/2013 11/03/2013 Inactive diltiazem ER (XR/XT) 240 mg capsule,extended release, controlled RxNorm: 645556 Capsule(s) PO TAKE 1 CAPSULE BY MOUTH EVERY DAY 201312/03/2013 Inactive Xanax 0.5 mg tablet RxNorm: 679472 1 Tablet(s) PO TID PRN 11/2013 No Stop Date Active (Appended: Controlled substance eRx refill - RxReferenceNumber: [id number]| [id number]|1|0|1) colestipol 1 gram tablet RxNorm: 2072099 Tablet(s) PO TAKE 1 TABLET BY MOUTH TWICE DAILY 08/26/2013 11/25/2013 Inactive Victoza 3-Babak 0.6 mg/0.1 mL (18 mg/3 mL) subcutaneous pen injector RxNorm: 867941 1.2 Milligram(s) SQ daily 0.6 x 2 weeks then increase to 1.2mg daily 08/19/2013 12/16/2013 Inactive Synthroid 88 mcg tablet RxNorm: 759605 1 Tablet(s) PO daily 12/09/2013 Inactive Lasix 20 mg tablet RxNorm: Tablet(s) PO TAKE 2 TABLETS BY MOUTH EVERY MORNING AND 2 TABLETS BY MOUTH AT 3 PM 08/12/2013 10/18/2016 Inactive Xanax 0.5 mg tablet RxNorm: 461322 1 Tablet(s) PO TID PRN No Stop Date Active (Appended: Controlled substance eRx refill - RxReferenceNumber: [id number]| [id number]|1|0|1) Lasix 20 mg tablet RxNorm: 928966 Tablet(s) PO TAKE 2 TABLETS BY MOUTH EVERY MORNING AND 1 TABLET BY MOUTH AT 3 PM 08/07/2013 08/11/2013 Inactive Voltaren 1 % topical gel RxNorm: 219119 4 Gram(s) TOP QID 08/0111/26/2013 Inactive Zyvox 600 mg tablet RxNorm: 926011 1 Tablet(s) PO BID 201307/27/2013 Inactive please call the office is this is too expensive for the pt Zyvox 600 mg tablet RxNorm: 866226 1 Tablet(s) PO BID 201307/17/2013 Inactive hydrocodone 5 mg-acetaminophen 325 mg tablet RxNorm: 7663682 1 Tablet(s) PO Q6 PRN 07/15/2013 09/26/2013 Inactive Zofran 4 mg tablet RxNorm: 181157 1 Tablet(s) PO Q4-6H 201310/02/2013 Inactive Lasix 20 mg tablet RxNorm: Tablet(s) PO TAKE 2 TABLETS BY MOUTH EVERY MORNING AND 1 TABLET BY MOUTH AT 3 PM 07/11/2013 10/18/2016 Inactive cyclobenzaprine 10 mg tablet RxNorm: 926873 1 Tablet(s) PO Q8 PRN 06/27/2013 08/25/2013 Inactive gabapentin 600 mg tablet RxNorm: 588979 1.5 Tablet(s) PO TID 01/02/2014 Inactive Lasix 20 mg tablet RxNorm: 656271 Tablet(s) PO TAKE 2 TABLETS BY MOUTH EVERY MORNING AND 1 TABLET BY MOUTH AT 3 PM 06/17/2013 07/10/2013 Inactive hydrocodone 5 mg-acetaminophen 325 mg tablet RxNorm: 440701 1 Tablet(s) PO Q6 PRN 06/10/2013 07/14/2013 Inactive hydrocortisone 2.5 % rectal cream RxNorm: 376208 1 Suppository RTL BID PRN 06/10/2013 06/29/2013 Inactive Flexeril 10 mg tablet RxNorm: 072645 1 Tablet(s) PO Q8 PRN 06/0406/26/2013 Inactive diltiazem ER (XR/XT) 240 mg capsule,extended release, controlled RxNorm: 518161 Capsule(s) PO TAKE 1 CAPSULE BY MOUTH EVERY DAY 201310/26/2017 Inactive omeprazole 20 mg capsule,delayed release RxNorm: 050039 Capsule(s) PO TAKE 1 CAPSULE BY MOUTH TWICE DAILY 05/24/2013 Inactive colestipol 1 gram tablet RxNorm: 4588779 Tablet(s) PO TAKE 1 TABLET BY MOUTH TWICE DAILY 05/23/2013 04/21/2016 Inactive Januvia 100 mg tablet RxNorm: 649992 1 Tablet(s) PO daily 201308/18/2013 Inactive Activella 0.5 mg-0.1 mg tablet RxNorm: 319363 Tablet(s) PO TAKE 1 TABLET BY MOUTH DAILY FOR MENOPAUSAL SYMPTOM 05/17/2013 Inactive Xanax 0.5 mg tablet RxNorm: 476421 1 Tablet(s) PO TID PRN 08/06/2013 Inactive (Appended: Controlled substance eRx refill - RxReferenceNumber: [id number]| [id number]|1|0|1) Kenalog 40 mg/mL suspension for injection RxNorm: 3394838 Milliliter(s) Inj 05/07/2013 05/07/2013 Inactive levofloxacin 500 mg tablet RxNorm: 265814 1 Tablet(s) PO daily pt to take 500mg on day#1, 3, 5, 7 and 1/2 tablet on days 2, 4, 6, and 8 05/0705/14/2013 Inactive Lyrica 50 mg capsule RxNorm: 360636 1 Capsule(s) PO TID 201206/26/2013 Inactive hydrocodone 5 mg-acetaminophen 500 mg tablet RxNorm: 696768 1 Tablet(s) PO Q6 PRN 04/22/2013 06/09/2013 Inactive Zofran 4 mg tablet RxNorm: 271806 1 Tablet(s) PO Q4-6H 201207/14/2013 Inactive Zofran 4 mg tablet RxNorm: 986136 1 Tablet(s) PO Q6 PRN 04/0404/08/2013 Inactive hydrocodone 5 mg-acetaminophen 500 mg tablet RxNorm: 091467 1 Tablet(s) PO Q6 PRN 03/21/2013 04/21/2013 Inactive Diflucan 150 mg tablet RxNorm: 803455 1 Tablet(s) PO every other day 1 pill po every other day x 8 doses 03/19/201306/26 Inactive potassium chloride ER 10 mEq tablet,extended release RxNorm: 892992 1 Tablet(s) PO QDAY PRN take with lasix 03/07/201302/2014 Inactive potassium chloride ER 10 mEq tablet,extended release RxNorm: 978986 1 Tablet(s) PO QDAY PRN take with lasix 03/04/2013 Inactive fluconazole 150 mg tablet RxNorm: 557781 1 Tablet(s) PO daily 03/01/2013 02/28/2013 Inactive fluconazole 150 mg tablet RxNorm: 598895 1 Tablet(s) PO daily 03/01/2013 03/05/2013 Inactive Combivent 18 mcg-103 mcg/actuation Aerosol Inhaler RxNorm: 298491 2 Puff(s) INH QID 02/12/2013 02/12/2013 Inactive Zofran 4 mg tablet RxNorm: 349705 1 Tablet(s) PO Q6 PRN 02/1104/03/2013 Inactive Lasix 20 mg tablet RxNorm: 846701 1 Tablet(s) PO BID one pill in morning and one pill in afternoon (3pm) 02/04/2013 Inactive Xopenex HFA 45 mcg/actuation Aerosol Inhaler RxNorm: 591320 2 INH QID 01/29/2013 09/21/2015 Inactive Effexor XR 37.5 mg capsule,extended release RxNorm: 165426 2 q am and 1 at hs Capsule(s) PO TAKE 2 CAPSULES BY MOUTH EVERY MORNING AND 1 CAPSULE EVERY NIGHT AT BEDTIME 01/29/2013 02/15/2016 Inactive fluconazole 150 mg tablet RxNorm: 480793 1 Tablet(s) PO daily 01/29/2013 02/02/2013 Inactive hydrocodone 5 mg-acetaminophen 500 mg tablet RxNorm: 797447 1 Tablet(s) PO Q6 PRN 01/29/2013 03/20/2013 Inactive Effexor XR 37.5 mg capsule,extended release RxNorm: 926658 Capsule(s) PO 01/29/2013 08/28/2013 Inactive TAKE 2 CAPSULES BY MOUTH EVERY MORNING AND 1 CAPSULE EVERY NIGHT AT BEDTIME doxycycline hyclate 100 mg tablet RxNorm: 868383 1 Tablet(s) PO BID 01/01/2013 01/10/2013 Inactive doxycycline hyclate 100 mg tablet RxNorm: 692214 1 Tablet(s) PO BID 01/01/2013 12/31/2012 Inactive Synthroid 75 mcg tablet RxNorm: 815717 1 Tablet(s) PO daily 06/29/2013 Inactive Synthroid 75 mcg tablet RxNorm: 746080 1 Tablet(s) PO daily 12/31/2012 Inactive Xanax 0.5 mg tablet RxNorm: 756988 Tablet(s) PO TAKE 1/2 TO 1 TABLET BY MOUTH EVERY 8 HOURS NEEDED FOR ANXIETY 12/27/2012 05/06/2013 Inactive (Appended: Controlled substance eRx refill - RxReferenceNumber: [id number]|1|0|1) Lasix 20 mg tablet RxNorm: 942587 1 Tablet(s) PO daily 201202/03/2013 Inactive Santyl 250 unit/gram Topical Ointment RxNorm: 7792233 1 Application TOP daily 12/20/2012 12/29/2012 Inactive Levaquin 500 mg tablet RxNorm: 545189 1 Tablet(s) PO daily 05/201212/26/2012 Inactive acyclovir 400 mg tablet RxNorm: 969708 1 Tablet(s) PO TID 12/0312/09/2012 Inactive acyclovir 400 mg tablet RxNorm: 908776 1 Tablet(s) PO TID 12/0312/02/2012 Inactive fluconazole 150 mg tablet RxNorm: 196109 1 Tablet(s) PO daily 11/26/2012 11/30/2012 Inactive Effexor XR 37.5 mg capsule,extended release RxNorm: 038603 Capsule(s) PO TAKE 2 CAPSULES BY MOUTH EVERY MORNING AND 1 CAPSULE EVERY NIGHT AT BEDTIME 11/14/2012 01/28/2013 Inactive albuterol sulfate 1.25 mg/3 mL solution for nebulization RxNorm: 101474 3 Milliliter(s) INH TID 10/29/20122012 Inactive 1 box Cartia XT 180 mg capsule,extended release RxNorm: 212821 1 Capsule(s) PO daily TAKE 1 CAPSULE BY MOUTH AT BEDTIME ..TAKE THIS IN ADDITION TO 240 MG IN THE MORNING 10/29/2012 11/26/2013 Inactive acyclovir 800 mg tablet RxNorm: 219823 1 Tablet(s) PO BID 10/2911/04/2012 Inactive Diflucan 150 mg tablet RxNorm: 029408 1 Tablet(s) PO daily 10/14/2012 Inactive TAKE 1 TABLET BY MOUTH EVERY DAY Toprol XL 100 mg tablet,extended release RxNorm: 091303 1 Tablet(s) PO BID 10/11/2012 09/05/2013 Inactive Zithromax Z-Babak 250 mg tablet RxNorm: 757535 Tablet(s) PO UD as directed. 1 refill , please take back to back 10/05/2012 No Stop Date Active Kenalog 40 mg/mL Susp for Injection RxNorm: 6780451 1 Milliliter(s) Inj QID 09/21/2012 05/07/2013 Inactive fluconazole 150 mg tablet RxNorm: 736989 1 Tablet(s) PO every other day x 5 doses 09/12/2012 11/25/2012 Inactive levothyroxine 50 mcg tablet RxNorm: 396476 1 Tablet(s) PO daily 09/06/2012 12/31/2012 Inactive atorvastatin 40 mg tablet RxNorm: 637490 1 Tablet(s) PO daily 09/06/2012 08/31/2013 Inactive TAKE 1 TABLET BY MOUTH DAILY (THIS IS AN INCREASE IN DOSAGE) Xanax 0.5 mg tablet RxNorm: 594771 Tablet(s) PO TAKE 1/2 TO 1 TABLET BY MOUTH EVERY 8 HOURS NEEDED FOR ANXIETY 08/27/2012 12/26/2012 Inactive (Appended: Controlled substance eRx refill - RxReferenceNumber: [id number]|1|0|1) Zofran 4 mg tablet RxNorm: 244551 1 Tablet(s) PO Q6 PRN 08/1302/10/2013 Inactive Cipro 500 mg tablet RxNorm: 969601 1 Tablet(s) PO BID 201208/07/2012 Inactive Cipro 500 mg tablet RxNorm: 154170 1 Tablet(s) PO BID 201208/12/2012 Inactive Flagyl 500 mg tablet RxNorm: 484558 1 Tablet(s) PO TID 201208/12/2012 Inactive cefdinir 300 mg capsule RxNorm: 135313 1 Capsule(s) PO BID 08/201207/29/2012 Inactive nystatin 100,000 unit/mL Oral Susp RxNorm: 128940 6 Unit(s) PO QID 07/06/2012 07/15/2012 Inactive Kenalog 40 mg/mL Susp for Injection RxNorm: 5414314 1 Milliliter(s) Inj 07/06/2012 07/06/2012 Inactive Zithromax 500 mg tablet RxNorm: 0985286 1 Tablet(s) PO daily 07/10/2012 Inactive metformin 850 mg tablet RxNorm: 642633 1/2 Tablet(s) PO TID 09/201208/24/2012 Inactive TAKE 1 TABLET BY MOUTH IN THE MORNING, 1/2 TABLET AT NOON, AND 1 TABLET IN THE EVENING Lyrica 50 mg capsule RxNorm: 930432 1 Capsule(s) PO TID 201206/25/2012 Inactive Diflucan 150 mg tablet RxNorm: 358735 1 Tablet(s) PO daily 05/201206/25/2012 Inactive TAKE 1 TABLET BY MOUTH EVERY DAY Levaquin 500 mg tablet RxNorm: 905057 1 Tablet(s) PO daily 06/19/2012 Inactive Pneumovax 23 25 mcg/0.5 mL Injection RxNorm: 371279 1/2 Milliliter(s) Inj 06/07/2012 06/07/2012 Inactive metformin 850 mg tablet RxNorm: 905599 1/2 Tablet(s) PO BID 06/25/2012 Inactive TAKE 1 TABLET BY MOUTH IN THE MORNING, 1/2 TABLET AT NOON, AND 1 TABLET IN THE EVENING cefdinir 300 mg capsule RxNorm: 632787 1 Capsule(s) PO BID 02/201305/30/2012 Inactive cefdinir 300 mg capsule RxNorm: 006950 1 Capsule(s) PO BID 02/201306/06/2012 Inactive prednisone 10 mg tablets in a dose pack RxNorm: 103118 Tablet(s) PO UD 6-5-4-3-2- 1 05/31/2012 05/06/2013 Inactive Cipro 500 mg tablet RxNorm: 919779 1 Tablet(s) PO BID 201206/03/2012 Inactive Xanax 0.5 mg tablet RxNorm: 492992 Tablet(s) PO TAKE 1/2 TO 1 TABLET BY MOUTH EVERY 8 HOURS NEEDED FOR ANXIETY 05/28/2012 08/27/2012 Inactive (Appended: Controlled substance eRx refill - RxReferenceNumber: [id number]|1|0|1) Cartia XT 180 mg capsule,extended release RxNorm: 397942 Capsule(s) PO TAKE 1 CAPSULE BY MOUTH AT BEDTIME ..TAKE THIS IN ADDITION TO 240 MG IN THE MORNING 05/24/2012 10/28/2012 Inactive Diflucan 150 mg tablet RxNorm: 630671 1 Tablet(s) PO daily 06/201205/26/2012 Inactive TAKE 1 TABLET BY MOUTH EVERY DAY Cartia XT 240 mg capsule,extended release RxNorm: 019687 1 Capsule(s) PO QAM 05/23/2012 09/06/2012 Inactive in addition to 180mg q pm omeprazole 20 mg capsule,delayed release RxNorm: 285177 Capsule(s) PO TAKE 1 CAPSULE BY MOUTH TWICE DAILY 05/21/2012 Inactive diltiazem ER (XR/XT) 240 mg capsule,extended release, controlled RxNorm: 936940 1 Capsule(s) PO daily TAKE ONE CAPSULE BY MOUTH EVERY DAY 05/21/2012 05/30/2013 Inactive Toprol XL 25 mg tablet,extended release RxNorm: 456603 1 Tablet(s) PO QPM take with 50mg (1/2 tab of 100mg) each evening. Continue 100mg in the morning. 05/17/2012 05/27/2012 Inactive Activella 0.5 mg-0.1 mg tablet RxNorm: 5868824 Tablet(s) PO TAKE 1 TABLET BY MOUTH DAILY FOR MENOPAUSAL SYMPTOM 05/09/2012 05/16/2013 Inactive colestipol 1 gram tablet RxNorm: 4255655 Tablet(s) PO TAKE 1 TABLET BY MOUTH TWICE DAILY 05/08/2012 04/21/2016 Inactive Kenalog 40 mg/mL Susp for Injection RxNorm: 3946157 1 Milliliter(s) Inj 05/02/2012 05/02/2012 Inactive Xanax 0.5 mg tablet RxNorm: 791940 Tablet(s) PO 04/16/2012 05/28/2012 Inactive TAKE 1/2 TO 1 TABLET BY MOUTH EVERY 8 HOURS NEEDED FOR ANXIETY (Appended: Controlled substance eRx refill - RxReferenceNumber: [id number]|1|0|1) Diflucan 150 mg tablet RxNorm: 695775 1 Tablet(s) PO daily 05/22/2012 Inactive TAKE 1 TABLET BY MOUTH EVERY DAY Cipro 500 mg tablet RxNorm: 119732 1 Tablet(s) PO BID 201104/19/2012 Inactive Zithromax Z-Babak 250 mg tablet RxNorm: 246341 Tablet(s) PO UD 05/30/2012 Inactive metformin 850 mg tablet RxNorm: 528227 Tablet(s) PO take one pill by mouth in AM, 1/2 at noon, and 1 pill in the evening. 03/16/2012 06/06/2012 Inactive TAKE 1 TABLET BY MOUTH IN THE MORNING, 1/2 TABLET AT NOON, AND 1 TABLET IN THE EVENING Xanax 0.5 mg tablet RxNorm: 644244 Tablet(s) PO 03/05/2012 04/15/2012 Inactive TAKE 1/2 TO 1 TABLET BY MOUTH EVERY 8 HOURS NEEDED FOR ANXIETY (Appended: Controlled substance [facility]Rx refill - [facility] [id number]|907039|1|0|1) potassium chloride ER 10 mEq tablet,extended release RxNorm: 726747 1 Tablet(s) PO QDAY PRN take with lasix 03/05/201204/2013 Inactive potassium chloride ER 10 mEq tablet,extended release RxNorm: 998913 1 Tablet(s) PO QDAY PRN take with lasix 02/28/2012 Inactive Lasix 20 mg tablet RxNorm: 384175 Tablet(s) PO QDAY PRN 02/2708/25/2012 Inactive doxycycline hyclate 100 mg capsule RxNorm: 008927 1 Capsule(s) PO BID 02/27/2012 03/04/2012 Inactive Effexor XR 37.5 mg capsule,extended release RxNorm: 295502 Capsule(s) PO 02/26/2012 01/28/2013 Inactive TAKE 2 CAPSULES BY MOUTH EVERY MORNING AND 1 CAPSULE EVERY NIGHT AT BEDTIME Lomotil 2.5 mg-0.025 mg tablet RxNorm: 0518086 Tablet(s) PO 07/201103/05/2012 Inactive 1 after each loose bm limit 4 per day doxycycline hyclate 100 mg capsule RxNorm: 301237 1 Capsule(s) PO BID 02/15/2012 02/21/2012 Inactive Diflucan 150 mg tablet RxNorm: 949222 Tablet(s) PO daily 201102/21/2012 Inactive TAKE 1 TABLET BY MOUTH EVERY DAY colestipol,micronized 1 gram tablet RxNorm: 6454620 Tablet(s) PO 02/06/2012 04/21/2016 Inactive TAKE 1 TABLET BY MOUTH TWICE DAILY Effexor XR 37.5 mg capsule,extended release RxNorm: 545974 Capsule(s) PO 02/06/2012 02/16/2016 Inactive TAKE 2 CAPSULES BY MOUTH EVERY MORNING AND 1 CAPSULE EVERY NIGHT AT BEDTIME potassium chloride ER 10 mEq tablet,extended release RxNorm: 567186 1 Tablet(s) PO QDAY PRN take with lasix 02/01/201212/2011 Inactive Levaquin 500 mg tablet RxNorm: 630024 1 Tablet(s) PO daily 04/201202/07/2012 Inactive Diflucan 150 mg tablet RxNorm: 897991 Tablet(s) PO 01/27/2012 02/14/2012 Inactive TAKE 1 TABLET BY MOUTH EVERY DAY Effexor XR 37.5 mg capsule,extended release RxNorm: 928646 Capsule(s) PO 01/05/2012 02/05/2012 Inactive TAKE 2 CAPSULES BY MOUTH EVERY MORNING , AND 1 CAPSULE BY MOUTH EVERY NIGHT AT BEDTIME Effexor XR 37.5 mg capsule,extended release RxNorm: 630982 Capsule(s) PO 12/29/2011 01/04/2012 Inactive TAKE 2 CAPSULES BY MOUTH EVERY MORNING , AND 1 CAPSULE BY MOUTH EVERY NIGHT AT BEDTIME Diflucan 150 mg tablet RxNorm: 180120 Tablet(s) PO 12/29/2011 04/09/2012 Inactive TAKE 1 TABLET BY MOUTH EVERY DAY Cipro 500 mg tablet RxNorm: 376897 1 Tablet(s) PO BID 201101/07/2012 Inactive Toprol XL 100 mg tablet,extended release RxNorm: 389886 Tablet(s) PO as doctor directed one tab in am and 1/2 at night 11/30/2011 10/10/2012 Inactive Phenergan 25 mg/mL Injection RxNorm: 680318 Milliliter(s) Inj 11/30/2011 11/30/2011 Inactive Toprol XL 100 mg 24 hr Tab RxNorm: 190283 1.5 Tablet(s) PO as doctor directed one tab in am and 1/2 at night 11/17/201102/2012 Inactive Xopenex HFA 45 mcg/actuation Aerosol Inhaler RxNorm: 982859 2 INH QID 11/08/2011 12/01/2012 Inactive Effexor XR 150 mg 24 hr Cap RxNorm: 285366 1 Capsule(s) PO daily 10/24/2011 01/04/2012 Inactive Xanax 0.5 mg tablet RxNorm: 863988 1/2-1 Tablet(s) PO Q8 PRN 10/20/2011 03/05/2012 Inactive levothyroxine 25 mcg tablet RxNorm: 664082 Tablet(s) PO 201109/05/2012 Inactive TAKE 1 TABLET BY MOUTH DAILY Xanax 0.5 mg Tab RxNorm: 834519 1/2-1 Tablet(s) PO Q8 PRN 09/26/2011 10/19/2011 Inactive potassium chloride ER 10 mEq Tab RxNorm: 355123 1 Tablet(s) PO daily 09/20/2011 09/24/2011 Inactive Lasix 20 mg Tab RxNorm : 647561 1 Tablet(s) PO daily 09/20/2011 09/24/2011 Inactive Xanax 0.5 mg Tab RxNorm: 239999 1/2-1 Tablet(s) PO Q8 PRN 09/12/2011 09/25/2011 Inactive Xanax 0.5 mg Tab RxNorm: 426964 1/2-1 Tablet(s) PO Q8 PRN 08/24/2011 09/11/2011 Inactive Lipitor 20 mg tablet RxNorm: 750133 Tablet(s) PO 08/22/2011 09/05/2012 Inactive TAKE 1 TABLET BY MOUTH DAILY (THIS IS AN INCREASE IN DOSAGE) Cipro 500 mg Tab RxNorm: 658163 1 Tablet(s) PO BID 201110/24/2011 Inactive Flagyl 500 mg Tab RxNorm: 346332 1 Tablet(s) PO TID 201110/24/2011 Inactive Diflucan 150 mg Tab RxNorm: 495358 1 Tablet(s) PO daily 201110/24/2011 Inactive Kenalog 40 mg/mL Susp for Injection RxNorm: 7468225 1 Milliliter(s) Inj 08/01/2011 10/24/2011 Inactive FreeStyle Lancets RxNorm: 1 test Miscellaneous TID 201107/08/2014 Inactive dispense quantity sufficient for three times daily testing for diabetes FreeStyle Test Strips RxNorm: 1 Miscellaneous BID 07/21/2011 08/13/2012 Inactive please give lancets alsodx 250.02 Xanax 0.25 mg Tab RxNorm: 216682 1 Tablet(s) PO Q8 PRN 07/06 No Stop Date Active colestipol 1 gram Tab RxNorm: 4767685 Tablet(s) PO 07/04/2011 04/21/2016 Inactive TAKE 1 TABLET BY MOUTH TWICE DAILY DIRECTED colestipol 1 gram tablet RxNorm: 4409814 1 Tablet(s) PO BID 07/03/2011 Inactive Cartia XT 180 mg capsule,extended release RxNorm: 918018 1 Capsule(s) PO QHS 06/30/2011 11/16/2011 Inactive in addition to 240mg q am venlafaxine 37.5 mg Tab RxNorm: 134105 1 Tablet(s) PO BID 06/2406/29/2011 Inactive prednisone 5 mg Tab RxNorm: 144368 Tablet(s) PO UD 2011 10/24/2011 Inactive six day taper #21 Lyrica 50 mg capsule RxNorm: 827064 1 Capsule(s) PO TID 201108/18/2011 Inactive Diflucan 150 mg tablet RxNorm: 652225 1 Tablet(s) PO daily 06/24/2011 Inactive levofloxacin 500 mg Tab RxNorm: 122275 1 Tablet(s) PO daily 08/15/2011 Inactive azithromycin 250 mg Tab RxNorm: 575389 PO 05/23/2011 06/20/2011 Inactive omeprazole 20 mg capsule,delayed release RxNorm: 877485 Capsule(s) PO 05/10/2011 05/20/2012 Inactive TAKE 1 CAPSULE BY MOUTH TWICE DAILY;Patient requests 90 day supply diltiazem ER (XR/XT) 240 mg capsule,extended release, controlled RxNorm: 877848 Capsule(s) PO 04/19/2011 05/21/2012 Inactive TAKE 1 CAPSULE BY MOUTH EVERY MORNING;Patient requests 90 day supply Kenalog 40 mg/mL Susp for Injection RxNorm: 1469365 1 Milliliter(s) Inj 04/18/2011 06/20/2011 Inactive clindamycin 300 mg Cap RxNorm: 043564 1 Capsule(s) PO BID 04/1806/20/2011 Inactive lisinopril-hydrochlorothiazide 20 mg-12.5 mg Tab RxNorm: 767839 2 Tablet(s) PO daily 04/18/2011 10/24/2011 Inactive fluconazole 150 mg Tab RxNorm: 657935 1 Tablet(s) PO daily 07/201006/20/2011 Inactive Activella 0.5 mg-0.1 mg tablet RxNorm: 2135671 Tablet(s) PO 05/201005/08/2012 Inactive TAKE 1 TABLET BY MOUTH DAILY FOR MENOPAUSAL SYMPTOM diltiazem ER (XR/XT) 240 mg Continuous Release Cap RxNorm: 214037 1 Capsule(s) PO daily 03/17/2011 03/16/2011 Inactive diltiazem ER (XR/XT) 240 mg Continuous Release Cap RxNorm: 477333 Capsule(s) PO 03/17/2011 06/20/2011 Inactive TAKE 1 CAPSULE BY MOUTH EVERY MORNING metformin 850 mg tablet RxNorm: 864482 1 Tablet(s) PO as doctor directed take one pill by mouth in AM, 1/2 at noon, and 1 pill in the evening. 01/21/2011 04/20/2011 Inactive Xopenex 1.25 mg/3 mL solution for nebulization RxNorm: 397357 3 Milliliter(s) INH Q6 PRN No Start Date Active Novolog Flexpen U-100 Insulin aspart 100 unit/mL subcutaneous RxNorm: 6371605 10 units with meals plus SSI in [...] 301-325 Lomotil 2.5 mg-0.025 mg tablet RxNorm: 2538855 Tablet(s) PO No Start Date 02/21/2012 Inactive 1 after each loose bm limit 4 per day Novolog Flexpen U-100 Insulin aspart 100 unit/mL subcutaneous RxNorm: 7789050 10 Unit(s) SQ AC No Start Date 10/26 Inactive with sliding scale-Dr Raines Tresiba FlexTouch U-100 100 unit/mL (3 mL) subcutaneous insulin pen RxNorm: 9797179 40 Unit(s) SQ daily No Start Date Inactive gabapentin 600 mg tablet RxNorm: 323490 1 Tablet(s) PO TID No Start Date 06/26/2013 Inactive Effexor XR 37.5 mg capsule,extended release RxNorm: 954310 1 Capsule(s) PO BID No Start Date 10/23/2011 Inactive Levemir FlexTouch 100 unit/mL (3 mL) subcutaneous insulin pen RxNorm: 323782 50 Unit(s) SQ BID No Start Date 04/24/2017 Inactive Combivent Respimat 20 mcg-100 mcg/actuation solution for inhalation RxNorm: 9970052 1 INH QID No Start Date 05/11/2014 Inactive Xanax 0.5 mg Tab RxNorm: 250893 1/2-1 Tablet(s) PO Q8 PRN No Start Date 08/23/2011 Inactive Xopenex HFA 45 mcg/actuation Aerosol Inhaler RxNorm: 090635 2 INH QID No Start Date 11/07/2011 Inactive promethazine 25 mg tablet RxNorm: 381661 1 Tablet(s) PO Q8 as needed No Start Date 08/12/2015 Inactive colestipol 1 gram Tab RxNorm: 5773760 1 Tablet(s) PO BID No Start Date 07/03/2011 Inactive Cartia XT 240 mg capsule,extended release RxNorm: 680768 1 Capsule(s) PO QAM No Start Date 05/22/2012 Inactive in addition to 180mg q pm Lipitor 20 mg Tab RxNorm: 537919 1 Tablet(s) PO daily No Start Date 08/21/2011 Inactive FreeStyle Test Strips RxNorm: 1 Miscellaneous BID No Start Date 07/20/2011 Inactive Toujeo SoloStar U-300 Insulin 300 unit/mL (1.5 mL) subcutaneous pen RxNorm: 2359272 40 Unit(s) SQ BID No Start Date 10/26/2017 Inactive Diflucan 150 mg tablet RxNorm: 747959 1 Tablet(s) PO daily 1 pill po every other day x 8 doses No Start Date 03/18/2013 Inactive hydrocodone 5 mg-acetaminophen 500 mg tablet RxNorm: 407848 1 Tablet(s) PO Q6 PRN No Start Date 01/28/2013 Inactive Lasix 20 mg tablet RxNorm: 322498 Tablet(s) PO QDAY PRN No Start Date 02/27/2012 Inactive Promethazine VC 6.25 mg-5 mg/5 mL Syrup RxNorm: 0475394 1-2 PO Q6 PRN No Start Date 10/07/2013 Inactive promethazine 25 mg tablet RxNorm: 270541 1 Tablet(s) PO Q6 PRN No Start Date 02/09/2017 Inactive digoxin 125 mcg tablet RxNorm: 883364 1 Tablet(s) PO daily No Start Date 06/20/2017 Inactive Xanax 0.25 mg Tab RxNorm: 027764 1 Tablet(s) PO Q8 PRN No Start Date 07/05/2011 Inactive Diflucan 150 mg tablet RxNorm: 840170 1 Tablet(s) PO every other day x 4 doses No Start Date 04/09/2014 Inactive Carafate 100 mg/mL Oral Susp RxNorm: 473735 2 Teaspoon(s) PO daily No Start Date 10/24/2011 Inactive prednisone 5 mg Tab RxNorm: 579224 Tablet(s) PO UD No Start Date 06/22/2011 Inactive six day taper #21 Tessalon Perles 100 mg capsule RxNorm: 675956 2 Capsule(s) PO TID as needed No Start Date 05/16/2017 Inactive Bactroban 2 % topical ointment RxNorm: 251539 1 Application TOP BID No Start Date 09/26/2013 Inactive Phenergan 25 mg tablet RxNorm: 823176 1 Tablet(s) PO Q8 as needed nausea No Start Date 06/28/2015 Inactive flecainide 50 mg tablet RxNorm: 660630 1 Tablet(s) PO BID No Start Date 02/01/2016 Inactive Activella 0.5 mg-0.1 mg Tab RxNorm: 6299883 1 Tablet(s) PO daily No Start Date 03/21/2011 Inactive hydrocodone 10 mg-acetaminophen 325 mg tablet RxNorm: 937559 1 Tablet(s) PO Q6 as needed No Start Date 02/04/2016 Inactive lisinopril 20 mg Tab RxNorm: 768546 1 Tablet(s) PO daily No Start Date 06/20/2011 Inactive prednisone 10 mg tablets in a dose pack RxNorm: 887483 Tablet(s) PO UD 6-5-4-3-2- 1 No Start Date 05/30/2012 Inactive hydrocodone 7.5 mg-acetaminophen 325 mg tablet RxNorm: 799174 1 Tablet(s) PO Q6 PRN No Start Date 10/06/2013 Inactive hyoscyamine 0.125 mg sublingual tablet RxNorm: 3905739 1 Tablet(s) SL TID as needed No Start Date 05/16/2017 Inactive Cartia XT 180 mg 24 hr Cap RxNorm: 478921 1 Capsule(s) PO QHS No Start Date 06/29/2011 Inactive in addition to 240mg q am Zofran 4 mg tablet RxNorm: 957557 1 Tablet(s) PO Q6 PRN No Start Date 08/12/2012 Inactive omeprazole 20 mg Cap, Delayed Release RxNorm: 293556 1 Capsule(s) PO BID No Start Date 05/09/2011 Inactive venlafaxine 37.5 mg Tab RxNorm: 651880 1 Tablet(s) PO BID No Start Date 10/24/2011 Inactive Vesicare 10 mg tablet RxNorm: 385638 1 Tablet(s) PO daily No Start Date 09/28/2015 Inactive levothyroxine 25 mcg Tab RxNorm: 870568 1 Tablet(s) PO daily No Start Date 10/18/2011 Inactive Zithromax Z-Babak 250 mg tablet RxNorm: 390292 Tablet(s) PO UD No Start Date 04/01/2012 Inactive Januvia 100 mg tablet RxNorm: 324845 1 Tablet(s) PO daily No Start Date 05/22/2013 Inactive Lantus Solostar 100 unit/mL (3 mL) subcutaneous insulin pen RxNorm: 952622 Unit( s) SQ No Start Date 04/17/2017 Inactive 10 units q am and 50units at night fluconazole 150 mg tablet RxNorm: 943861 1 Tablet(s) PO every other day x 5 doses No Start Date 09/11/2012 Inactive Toprol XL 25 mg 24 hr Tab RxNorm: 921305 1 Tablet(s) PO daily No Start Date 11/16/2011 Inactive Medication Administered Medication Codes Instructions Start Date Status Kenalog 40 mg/mL suspension for injection RxNorm: 0350909 Milliliter 06/26/2015 No longer Active Kenalog 40 mg/mL suspension for injection RxNorm: 8420090 Milliliter 05/07/2013 No longer Active Kenalog 40 mg/mL Susp for Injection RxNorm: 5647691 1Milliliter 07/06/2012 No longer Active Pneumovax 23 25 mcg/0.5 mL Injection RxNorm: 360011 1/2Milliliter 06/07/2012 No longer Active Kenalog 40 mg/mL Susp for Injection RxNorm: 8198913 1Milliliter 05/02/2012 No longer Active Phenergan 25 mg/mL Injection RxNorm: 752248 Milliliter 11/30/2011 No longer Active Immunizations Vaccine [...] 35.6 % 02/20/2018 Cbc With Differential Ord2 MCV 87.3 fl 02/20/2018 Cbc With Differential Ord2 Lymph% 18.7 % 02/20/2018 Cbc With Differential Ord2 MCH 26.2 pg 02/20/2018 Cbc With Differential Ord2 [place]% 5.7 % 02/20/2018 Cbc With Differential Ord2 [...] 1.61 K/ul 02/20/2018 Cbc With Differential Ord2 [place] ABS# 0.5 K/ul 02/20/2018 Cbc With Differential Ord2 Eos ABS# 0.1 K/ul 02/20/2018 Cbc With Differential Ord2 Baso ABS# 0.0 K/ul 02/20/2018 Comp Metabolic Lcy473 NA 134 mEq/L 02/20/2018 Comp Metabolic Vyk232 K 3.9 mEq/L 02/20/2018 Comp Metabolic Dcn720 CL 90 mEq/L 02/20/2018 Comp Metabolic Uze935 CO2 32.0 mEq/L 02/20/2018 Comp Metabolic Fqk924 ANION GAP 16 02/20/2018 Comp Metabolic Wmw399 GLUCOSE 287 mg/dL 02/20/2018 Comp Metabolic Lbo279 Creat 0.8 mg/dL 02/20/2018 Comp Metabolic Rmr437 eGFR 72 ml/min/1.73m2 02/20/2018 Comp Metabolic Pis193 BUN 13 mg/dL 02/20/2018 Comp Metabolic Tqy473 B/C Ratio 15.5 Ratio 02/20/2018 Comp Metabolic Vhu394 CALCIUM 9.0 mg/dL 02/20/2018 Comp Metabolic Pnp535 ALK PHOS 120 U/L 02/20/2018 Comp Metabolic Btn183 AST(SGOT) 21 U/L 02/20/2018 Comp Metabolic Djl711 ALT(SGPT) 17 U/L 02/20/2018 Comp Metabolic Hql454 BILI T 0.4 mg/dL 02/20/2018 Comp Metabolic Cdy359 ALBUMIN 3.8 g/dL 02/20/2018 Comp Metabolic Hma411 TPRO 6.9 g/dL 02/20/2018 Comp Metabolic Ife575 GLOB 3.1 g/dL 02/20/2018 Comp Metabolic Wkb575 A/G Ratio 1.3 Ratio 02/20/2018 Comp Metabolic Oyn561 Osmo 279 mOsmo 02/20/2018 Vitamin D 25 Oh Duj8096 VITAMIN D, 25 HYDROXY 26.48 ng/mL Digoxin Ord9 DIGOXIN 0.7 NG/ML 02/20/2018 Culture Urine [id number] URINE CULTURE SEE NOTES 12/01/2017 Urine Culture Ucult Complete >100,000 col/ml aerobic growth sent to ref lab 11/29/2017 Comp Metabolic Cyf950 NA 135 mEq/L 08/21/2017 Comp Metabolic Hhq179 K 4.6 mEq/L 08/21/2017 Comp Metabolic Msb371 CL 92 mEq/L 08/21/2017 Comp Metabolic Xku676 CO2 32.0 mEq/L 08/21/2017 Comp Metabolic Ppg107 ANION GAP 16 08/21/2017 Comp Metabolic Rne406 GLUCOSE 298 mg/dL 08/21/2017 Comp Metabolic Tet580 Creat 1.1 mg/dL 08/21/2017 Comp Metabolic Hif095 eGFR 54 ml/min/1.73m2 08/21/2017 Comp Metabolic Vdg456 BUN 22 mg/dL 08/21/2017 Comp Metabolic Xcw928 B/C Ratio 20.6 Ratio 08/21/2017 Comp Metabolic Aht590 CALCIUM 9.3 mg/dL 08/21/2017 Comp Metabolic Qpn460 ALK PHOS 145 U/L 08/21/2017 Comp Metabolic Bxn176 AST(SGOT) 31 U/L 08/21/2017 Comp Metabolic Fgt531 ALT(SGPT) 19 U/L 08/21/2017 Comp Metabolic Drd057 BILI T 0.3 mg/dL 08/21/2017 Comp Metabolic Wuu111 ALBUMIN 3.8 g/dL 08/21/2017 Comp Metabolic Krc484 TPRO 7.1 g/dL 08/21/2017 Comp Metabolic Znd445 GLOB 3.3 g/dL 08/21/2017 Comp Metabolic Iux371 A/G Ratio 1.2 Ratio 08/21/2017 Comp Metabolic Ker401 Osmo 285 mOsmo 08/21/2017 Cbc With Differential [...] 27.9 pg 08/18/2017 Cbc With Differential Ord2 [place]% 6.9 % 08/18/2017 Cbc With Differential Ord2 [...] 2.05 K/ul 08/18/2017 Cbc With Differential Ord2 [place] ABS# 0.7 K/ul 08/18/2017 Cbc With Differential Ord2 Eos ABS# 0.3 K/ul 08/18/2017 Cbc With Differential Ord2 Baso ABS# 0.0 K/ul 08/18/2017 %Hba1C Yuw902 % HbA1c 23865-3 11.5 % 06/13/2017 %Hba1C Gio961 Gluc Ave 283 mg/dL 06/13/2017 Cbc With [...] 20.0 % 03/27/2017 Cbc With Differential Ord2 [place]% 7.2 % 03/27/2017 Cbc With Differential Ord2 [...] 2.11 K/ul 03/27/2017 Cbc With Differential Ord2 [place] ABS# 0.8 K/ul 03/27/2017 Cbc With Differential Ord2 Eos ABS# 0.2 K/ul 03/27/2017 Cbc With Differential Ord2 Baso ABS# 0.0 K/ul 03/27/2017 Digoxin Ord9 DIGOXIN 0.5 NG/ML 03/27/2017 Comp Metabolic Ddu711 NA 136 mEq/L 03/27/2017 Comp Metabolic Auw633 K 4.1 mEq/L 03/27/2017 Comp Metabolic Kec674 CL 90 mEq/L 03/27/2017 Comp Metabolic Qwz807 CO2 34.0 mEq/L 03/27/2017 Comp Metabolic Iyp694 ANION GAP 16 03/27/2017 Comp Metabolic Tgt553 GLUCOSE 325 mg/dL 03/27/2017 Comp Metabolic Aga031 Creat 1.0 mg/dL 03/27/2017 Comp Metabolic Qkv309 eGFR 62 ml/min/1.73m2 03/27/2017 Comp Metabolic Iwm510 BUN 15 mg/dL 03/27/2017 Comp Metabolic Mty330 B/C Ratio 15.8 Ratio 03/27/2017 Comp Metabolic Xcz556 CALCIUM 9.5 mg/dL 03/27/2017 Comp Metabolic Rhn431 ALK PHOS 159 U/L 03/27/2017 Comp Metabolic Dsn213 AST(SGOT) 57 U/L 03/27/2017 Comp Metabolic Hmm539 ALT(SGPT) 32 U/L 03/27/2017 Comp Metabolic Ymy072 BILI T 0.4 mg/dL 03/27/2017 Comp Metabolic Kcs012 ALBUMIN 4.3 g/dL 03/27/2017 Comp Metabolic Jgx543 TPRO 7.3 g/dL 03/27/2017 Comp Metabolic Hqa058 GLOB 3.0 g/dL 03/27/2017 Comp Metabolic Phm375 A/G Ratio 1.4 Ratio 03/27/2017 Comp Metabolic Sxk341 Osmo 285 mOsmo 03/27/2017 Magnesium Ord90 Mag 2.4 mg/dL 02/27/2017 Comp Metabolic Eds227 NA 138 mEq/L 02/27/2017 Comp Metabolic Nks399 K 4.2 mEq/L 02/27/2017 Comp Metabolic Ulz415 CL 91 mEq/L 02/27/2017 Comp Metabolic Twr923 CO2 36.0 mEq/L 02/27/2017 Comp Metabolic Srd229 ANION GAP 15 02/27/2017 Comp Metabolic Dcm677 GLUCOSE 297 mg/dL 02/27/2017 Comp Metabolic Bqq937 Creat 0.9 mg/dL 02/27/2017 Comp Metabolic Csr733 eGFR 71 ml/min/1.73m2 02/27/2017 Comp Metabolic Zfo581 BUN 12 mg/dL 02/27/2017 Comp Metabolic Dki379 B/C Ratio 14.1 Ratio 02/27/2017 Comp Metabolic Zkj723 CALCIUM 9.0 mg/dL 02/27/2017 Comp Metabolic Npl956 ALK PHOS 146 U/L 02/27/2017 Comp Metabolic Ttr496 AST(SGOT) 28 U/L 02/27/2017 Comp Metabolic Eah643 ALT(SGPT) 12 U/L 02/27/2017 Comp Metabolic Jfb984 BILI T 0.3 mg/dL 02/27/2017 Comp Metabolic Ush676 ALBUMIN 3.8 g/dL 02/27/2017 Comp Metabolic Dft466 TPRO 6.6 g/dL 02/27/2017 Comp Metabolic Pnh834 GLOB 2.8 g/dL 02/27/2017 Comp Metabolic Sqd206 A/G Ratio 1.3 Ratio 02/27/2017 Comp Metabolic Ngv654 Osmo 286 mOsmo 02/27/2017 Digoxin Ord9 DIGOXIN <0.2 NG/ML 02/14/2017 Comp Metabolic Vjs115 NA 138 mEq/L 02/14/2017 Comp Metabolic Vqj148 K 3.5 mEq/L 02/14/2017 Comp Metabolic Gdn596 CL 95 mEq/L 02/14/2017 Comp Metabolic Bir161 CO2 29.0 mEq/L 02/14/2017 Comp Metabolic Dtb224 ANION GAP 18 02/14/2017 Comp Metabolic Dnu418 GLUCOSE 254 mg/dL 02/14/2017 Comp Metabolic Npk166 Creat 1.0 mg/dL 02/14/2017 Comp Metabolic Lyc896 eGFR 62 ml/min/1.73m2 02/14/2017 Comp Metabolic Ucn498 BUN 14 mg/dL 02/14/2017 Comp Metabolic Ojx751 B/C Ratio 14.6 Ratio 02/14/2017 Comp Metabolic Ykj215 CALCIUM 8.6 mg/dL 02/14/2017 Comp Metabolic Baw031 ALK PHOS 155 U/L 02/14/2017 Comp Metabolic Fmc174 AST(SGOT) 42 U/L 02/14/2017 Comp Metabolic Xvy431 ALT(SGPT) 28 U/L 02/14/2017 Comp Metabolic Ihn319 BILI T 0.3 mg/dL 02/14/2017 Comp Metabolic Kum432 ALBUMIN 3.6 g/dL 02/14/2017 Comp Metabolic Sph977 TPRO 6.2 g/dL 02/14/2017 Comp Metabolic Nrv314 GLOB 2.6 g/dL 02/14/2017 Comp Metabolic Qnl973 A/G Ratio 1.4 Ratio 02/14/2017 Comp Metabolic Wyq487 Osmo 285 mOsmo 02/14/2017 Vitamin D 25 Oh Gwy5601 VITAMIN D, 25 HYDROXY 8.99 ng/mL Tsh [...] 28.0 pg 01/16/2017 Cbc With Differential Ord2 [place]% 7.3 % 01/16/2017 Cbc With Differential Ord2 [...] 1.42 K/ul 01/16/2017 Cbc With Differential Ord2 [place] ABS# 0.6 K/ul 01/16/2017 Cbc With Differential Ord2 Eos ABS# 0.1 K/ul 01/16/2017 Cbc With Differential Ord2 Baso ABS# 0.0 K/ul 01/16/2017 Sed Rate Ord21 ESR 33 mm/hr 01/16/2017 C-Reactive Protein Qnt Crqnt CRP 3.3 mg/dl 01/16/2017 Free T4 Qyc606 FREE T4 0.81 ng/dL 01/16/2017 %Hba1C Rww981 % HbA1c 46313-2 12.4 % 01/16/2017 %Hba1C Zte618 Gluc Ave 309 mg/dL 01/16/2017 Comp Metabolic Zks812 NA 134 mEq/L 01/16/2017 Comp Metabolic Mfo149 K 4.0 mEq/L 01/16/2017 Comp Metabolic Plb110 CL 89 mEq/L 01/16/2017 Comp Metabolic Smp475 CO2 30.0 mEq/L 01/16/2017 Comp Metabolic Vee517 ANION GAP 19 01/16/2017 Comp Metabolic Xil349 GLUCOSE 496 Result Verified By Repeat Analysis mg/dL 01/16/2017 Comp Metabolic Ped105 Creat 0.8 mg/dL 01/16/2017 Comp Metabolic Dml219 eGFR 73 ml/min/1.73m2 01/16/2017 Comp Metabolic Thq601 BUN 13 mg/dL 01/16/2017 Comp Metabolic Xdy360 B/C Ratio 15.7 Ratio 01/16/2017 Comp Metabolic Ryq933 CALCIUM 8.8 mg/dL 01/16/2017 Comp Metabolic Wtf698 ALK PHOS 171 U/L 01/16/2017 Comp Metabolic Xof331 AST(SGOT) 54 U/L 01/16/2017 Comp Metabolic Iat301 ALT(SGPT) 32 U/L 01/16/2017 Comp Metabolic Dfz291 BILI T 0.3 mg/dL 01/16/2017 Comp Metabolic Ijk486 ALBUMIN 3.9 g/dL 01/16/2017 Comp Metabolic Xlw715 TPRO 6.5 g/dL 01/16/2017 Comp Metabolic Jwg697 GLOB 2.6 g/dL 01/16/2017 Comp Metabolic Eun609 A/G Ratio 1.5 Ratio 01/16/2017 Comp Metabolic Zbj065 Osmo 290 mOsmo 01/16/2017 Manual Differential Ord52 D-Neutr 62 % 09/14/2016 Manual Differential Ord52 D-[place] 1 % 09/14/2016 Manual Differential Ord52 D-Lymph 34 % 09/14/2016 Manual Differential Ord52 D-Eos 2 % 09/14/2016 Manual Differential Ord52 D-[place] 1 % 09/14/2016 Comp Metabolic Ept456 NA 135 mEq/L 09/14/2016 Comp Metabolic Jke290 K 5.2 mEq/L 09/14/2016 Comp Metabolic Ovi990 CL 93 mEq/L 09/14/2016 Comp Metabolic Wwh728 CO2 26.0 mEq/L 09/14/2016 Comp Metabolic Wtg843 ANION GAP 21 09/14/2016 Comp Metabolic Aip271 GLUCOSE 326 mg/dL 09/14/2016 Comp Metabolic Xeq693 Creat 1.0 mg/dL 09/14/2016 Comp Metabolic Hdo473 eGFR 57 ml/min/1.73m2 09/14/2016 Comp Metabolic Sed196 BUN 16 mg/dL 09/14/2016 Comp Metabolic Ebh025 B/C Ratio 15.5 Ratio 09/14/2016 Comp Metabolic Osm734 CALCIUM 9.2 mg/dL 09/14/2016 Comp Metabolic Yik764 ALK PHOS 160 U/L 09/14/2016 Comp Metabolic Ngd487 AST(SGOT) 49 U/L 09/14/2016 Comp Metabolic Hen981 ALT(SGPT) 32 U/L 09/14/2016 Comp Metabolic Rcs773 BILI T 0.4 mg/dL 09/14/2016 Comp Metabolic Rls118 ALBUMIN 4.0 g/dL 09/14/2016 Comp Metabolic Zlx861 TPRO 7.3 g/dL 09/14/2016 Comp Metabolic Svk778 GLOB 3.3 g/dL 09/14/2016 Comp Metabolic Dtn425 A/G Ratio 1.2 Ratio 09/14/2016 Comp Metabolic Njf143 Osmo 284 mOsmo 09/14/2016 Cbc With Differential [...] 28.2 pg 09/14/2016 Cbc With Differential Ord2 [place]% 6.2 % 09/14/2016 Cbc With Differential Ord2 [...] 2.09 K/ul 09/14/2016 Cbc With Differential Ord2 [place] ABS# 0.7 K/ul 09/14/2016 Cbc With Differential Ord2 Eos ABS# 0.2 K/ul 09/14/2016 Cbc With Differential Ord2 Baso ABS# 0.3 K/ul 09/14/2016 %Hba1C Qbb270 % HbA1c 69828-7 10.7 % 09/14/2016 %Hba1C Zkp631 Gluc Ave 260 mg/dL 09/14/2016 Comp Metabolic Iki033 NA 134 mEq/L 08/10/2016 Comp Metabolic Whg650 K 5.0 mEq/L 08/10/2016 Comp Metabolic Fdb473 CL 91 mEq/L 08/10/2016 Comp Metabolic Sjp234 CO2 29.0 mEq/L 08/10/2016 Comp Metabolic Gtg100 ANION GAP 19 08/10/2016 Comp Metabolic Rer675 GLUCOSE 291 mg/dL 08/10/2016 Comp Metabolic Pdr627 Creat 0.9 mg/dL 08/10/2016 Comp Metabolic Mez688 eGFR 68 ml/min/1.73m2 08/10/2016 Comp Metabolic Dpz085 BUN 20 mg/dL 08/10/2016 Comp Metabolic Dhz283 B/C Ratio 22.7 Ratio 08/10/2016 Comp Metabolic Ewy946 CALCIUM 9.7 mg/dL 08/10/2016 Comp Metabolic Dti404 ALK PHOS 144 U/L 08/10/2016 Comp Metabolic Hkx590 AST(SGOT) 62 U/L 08/10/2016 Comp Metabolic Pfw749 ALT(SGPT) 37 U/L 08/10/2016 Comp Metabolic Fhe923 BILI T 0.3 mg/dL 08/10/2016 Comp Metabolic Hip455 ALBUMIN 4.3 g/dL 08/10/2016 Comp Metabolic Yau380 TPRO 7.3 g/dL 08/10/2016 Comp Metabolic Pfb948 GLOB 3.0 g/dL 08/10/2016 Comp Metabolic Bzf191 A/G Ratio 1.5 Ratio 08/10/2016 Comp Metabolic Qmv386 Osmo 282 mOsmo 08/10/2016 Free T4 Srz645 FREE T4 0.89 ng/dL 08/09/2016 Tsh Ord6 [...] 17.7 % 08/09/2016 Cbc With Differential Ord2 [place]% 5.4 % 08/09/2016 Cbc With Differential Ord2 [...] 2.46 K/ul 08/09/2016 Cbc With Differential Ord2 [place] ABS# 0.8 K/ul 08/09/2016 Cbc With Differential [...] 27.3 pg 04/20/2016 Cbc With Differential Ord2 [place]% 6.3 % 04/20/2016 Cbc With Differential Ord2 [...] 2.63 K/ul 04/20/2016 Cbc With Differential Ord2 [place] ABS# 0.6 K/ul 04/20/2016 Cbc With Differential Ord2 Eos ABS# 0.2 K/ul 04/20/2016 Cbc With Differential Ord2 Baso ABS# 0.0 K/ul 04/20/2016 Comp Metabolic Fdc865 NA 133 mEq/L 04/11/2016 Comp Metabolic Lbu735 K 4.1 mEq/L 04/11/2016 Comp Metabolic Tuo177 CL 92 mEq/L 04/11/2016 Comp Metabolic Klq209 CO2 30.0 mEq/L 04/11/2016 Comp Metabolic Jri588 ANION GAP 15 04/11/2016 Comp Metabolic Jsh737 GLUCOSE 414 mg/dL 04/11/2016 Comp Metabolic Brg618 Creat 0.9 mg/dL 04/11/2016 Comp Metabolic Gnk253 eGFR 65 ml/min/1.73m2 04/11/2016 Comp Metabolic Ejm496 BUN 22 mg/dL 04/11/2016 Comp Metabolic Npb394 B/C Ratio 23.9 Ratio 04/11/2016 Comp Metabolic Umi350 CALCIUM 9.2 mg/dL 04/11/2016 Comp Metabolic Nca647 ALK PHOS 145 U/L 04/11/2016 Comp Metabolic Qns249 AST(SGOT) 22 U/L 04/11/2016 Comp Metabolic Tnw415 ALT(SGPT) 21 U/L 04/11/2016 Comp Metabolic Zno211 BILI T 0.3 mg/dL 04/11/2016 Comp Metabolic Fsj199 ALBUMIN 3.9 g/dL 04/11/2016 Comp Metabolic Qfu725 TPRO 6.8 g/dL 04/11/2016 Comp Metabolic Xcf785 GLOB 3.0 g/dL 04/11/2016 Comp Metabolic Cnw051 A/G Ratio 1.3 Ratio 04/11/2016 Comp Metabolic Wyu506 Osmo 287 mOsmo 04/11/2016 Cbc With Differential [...] 88.9 fl 04/11/2016 Cbc With Differential Ord2 [place]% 6.9 % 04/11/2016 Cbc With Differential Ord2 [...] 2.09 K/ul 04/11/2016 Cbc With Differential Ord2 [place] ABS# 0.7 K/ul 04/11/2016 Cbc With Differential Ord2 Eos ABS# 0.2 K/ul 04/11/2016 Cbc With Differential Ord2 Baso ABS# 0.0 K/ul 04/11/2016 Comp Metabolic Mpv709 NA 136 mEq/L 02/26/2016 Comp Metabolic Mdg796 K 3.9 mEq/L 02/26/2016 Comp Metabolic Ugj837 CL 95 mEq/L 02/26/2016 Comp Metabolic Xzi308 CO2 29.0 mEq/L 02/26/2016 Comp Metabolic Rbu863 ANION GAP 16 02/26/2016 Comp Metabolic Uwz868 GLUCOSE 277 mg/dL 02/26/2016 Comp Metabolic Xaw504 Creat 0.7 mg/dL 02/26/2016 Comp Metabolic Fvi092 eGFR 88 ml/min/1.73m2 02/26/2016 Comp Metabolic Sbp588 BUN 11 mg/dL 02/26/2016 Comp Metabolic Ddu287 B/C Ratio 15.5 Ratio 02/26/2016 Comp Metabolic Elf023 CALCIUM 8.8 mg/dL 02/26/2016 Comp Metabolic Pky329 ALK PHOS 119 U/L 02/26/2016 Comp Metabolic Aaw110 AST(SGOT) 25 U/L 02/26/2016 Comp Metabolic Zdv557 ALT(SGPT) 20 U/L 02/26/2016 Comp Metabolic Cuz967 BILI T 0.3 mg/dL 02/26/2016 Comp Metabolic Cgg206 ALBUMIN 3.8 g/dL 02/26/2016 Comp Metabolic Gjv070 TPRO 6.6 g/dL 02/26/2016 Comp Metabolic Ovt435 GLOB 2.8 g/dL 02/26/2016 Comp Metabolic Gau366 A/G Ratio 1.3 Ratio 02/26/2016 Comp Metabolic Rlf566 Osmo 281 mOsmo 02/26/2016 Cbc With Differential [...] 94.6 fl 02/26/2016 Cbc With Differential Ord2 [place]% 6.4 % 02/26/2016 Cbc With Differential Ord2 [...] 2.78 K/ul 02/26/2016 Cbc With Differential Ord2 [place] ABS# 0.8 K/ul 02/26/2016 Cbc With Differential Ord2 Eos ABS# 0.2 K/ul 02/26/2016 Cbc With Differential Ord2 Baso ABS# 0.1 K/ul 02/26/2016 %Hba1C Xgn249 % HbA1c 68198-6 9.6 % 02/26/2016 %Hba1C Tnb678 Gluc Ave 229 mg/dL 02/26/2016 Comp Metabolic Kat307 NA 138 mEq/L 11/10/2015 Comp Metabolic Wbb526 K 4.5 mEq/L 11/10/2015 Comp Metabolic Tba603 CL 99 mEq/L 11/10/2015 Comp Metabolic Zpb427 CO2 34.0 mEq/L 11/10/2015 Comp Metabolic Ria268 ANION GAP 10 11/10/2015 Comp Metabolic Klj316 GLUCOSE 167 mg/dL 11/10/2015 Comp Metabolic Yqd766 Creat 0.8 mg/dL 11/10/2015 Comp Metabolic Yfa255 eGFR 78 ml/min/1.73m2 11/10/2015 Comp Metabolic Cfu977 BUN 22 mg/dL 11/10/2015 Comp Metabolic Fjn449 B/C Ratio 27.8 Ratio 11/10/2015 Comp Metabolic Nnd554 CALCIUM 8.5 mg/dL 11/10/2015 Comp Metabolic Gtf974 ALK PHOS 130 U/L 11/10/2015 Comp Metabolic Ihk413 AST(SGOT) 56 U/L 11/10/2015 Comp Metabolic Pdj821 ALT(SGPT) 51 U/L 11/10/2015 Comp Metabolic Ljk119 BILI T 0.5 mg/dL 11/10/2015 Comp Metabolic Yyo118 ALBUMIN 3.5 g/dL 11/10/2015 Comp Metabolic Voe684 TPRO 5.8 g/dL 11/10/2015 Comp Metabolic Rar838 GLOB 2.3 g/dL 11/10/2015 Comp Metabolic Ass749 A/G Ratio 1.5 Ratio 11/10/2015 Comp Metabolic Zln219 Osmo 283 mOsmo 11/10/2015 Cbc With Differential [...] 28.0 pg 11/10/2015 Cbc With Differential Ord2 [place]% 7.7 % 11/10/2015 Cbc With Differential Ord2 [...] 1.92 K/ul 11/10/2015 Cbc With Differential Ord2 [place] ABS# 0.9 K/ul 11/10/2015 Cbc With Differential [...] 28.6 pg 08/11/2015 Cbc With Differential Ord2 [place]% 8.1 % 08/11/2015 Cbc With Differential Ord2 [...] 2.93 K/ul 08/11/2015 Cbc With Differential Ord2 [place] ABS# 0.9 K/ul 08/11/2015 Cbc With Differential Ord2 Eos ABS# 0.1 K/ul 08/11/2015 Cbc With Differential Ord2 Baso ABS# 0.0 K/ul 08/11/2015 Cbc With Differential Ord2 New Analyzer Notice Please note new ref ranges starting 06-03-2015 due to implemntation of new five part differential hematolgy analyzer. 08/11/2015 Comp Metabolic Xqh093 NA 142 mEq/L 08/11/2015 Comp Metabolic Baj958 K 3.6 mEq/L 08/11/2015 Comp Metabolic Zfd263 CL 98 mEq/L 08/11/2015 Comp Metabolic Akj009 CO2 33.0 mEq/L 08/11/2015 Comp Metabolic Xlk464 ANION GAP 15 08/11/2015 Comp Metabolic Ped503 GLUCOSE 100 mg/dL 08/11/2015 Comp Metabolic Htq777 Creat 0.9 mg/dL 08/11/2015 Comp Metabolic Mvb791 eGFR 65 ml/min/1.73m2 08/11/2015 Comp Metabolic Vdn360 BUN 15 mg/dL 08/11/2015 Comp Metabolic Wct320 B/C Ratio 16.3 Ratio 08/11/2015 Comp Metabolic Ude823 CALCIUM 8.8 mg/dL 08/11/2015 Comp Metabolic Ekz669 ALK PHOS 171 U/L 08/11/2015 Comp Metabolic Qql341 AST(SGOT) 76 U/L 08/11/2015 Comp Metabolic Nyj770 ALT(SGPT) 64 U/L 08/11/2015 Comp Metabolic Uhd366 BILI T 0.4 mg/dL 08/11/2015 Comp Metabolic Fvp366 ALBUMIN 4.2 g/dL 08/11/2015 Comp Metabolic Hmu803 TPRO 6.7 g/dL 08/11/2015 Comp Metabolic Tyy624 GLOB 2.6 g/dL 08/11/2015 Comp Metabolic Ucn744 A/G Ratio 1.6 Ratio 08/11/2015 Comp Metabolic Oaj334 Osmo 284 mOsmo 08/11/2015 %Hba1C Apy225 % HbA1c 80677-1 6.7 % 08/11/2015 %Hba1C Euj421 Gluc Ave 146 mg/dL 08/11/2015 Free T4 San898 FREE T4 1.07 ng/dL 08/11/2015 Culture Urine [id number] URINE CULTURE SEE NOTES 07/23/2015 Culture Urine [id number] Continued Results 07/23/2015 Urine Culture Ucult Complete Growth of aerobe sent to ref lab 07/21/2015 Free T4 Djk287 FREE T4 0.76 ng/dL 04/15/2015 Tsh Ord6 hTSH II 1.99 uIU/mL 04/15/2015 %Hba1C Iqv105 % HbA1c 72831-9 6.7 % 04/14/2015 %Hba1C Ipw614 Gluc Ave 146 mg/dL 04/14/2015 Comp Metabolic Oho260 NA 140 mEq/L 04/14/2015 Comp Metabolic Arp624 K 4.4 mEq/L 04/14/2015 Comp Metabolic Vzs644 CL 99 mEq/L 04/14/2015 Comp Metabolic Oph588 CO2 29.0 mEq/L 04/14/2015 Comp Metabolic Irs020 ANION GAP 16 04/14/2015 Comp Metabolic Nxw790 GLUCOSE 100 mg/dL 04/14/2015 Comp Metabolic Nht080 Creat 0.7 mg/dL 04/14/2015 Comp Metabolic Rho674 eGFR 91 ml/min/1.73m2 04/14/2015 Comp Metabolic Uqh560 BUN 13 mg/dL 04/14/2015 Comp Metabolic Imo087 B/C Ratio 18.8 Ratio 04/14/2015 Comp Metabolic Xtl962 CALCIUM 9.1 mg/dL 04/14/2015 Comp Metabolic Bll350 ALK PHOS 138 U/L 04/14/2015 Comp Metabolic Ves137 AST(SGOT) 22 U/L 04/14/2015 Comp Metabolic Ews809 ALT(SGPT) 22 U/L 04/14/2015 Comp Metabolic Hmn650 BILI T 0.3 mg/dL 04/14/2015 Comp Metabolic Fzn633 ALBUMIN 4.0 g/dL 04/14/2015 Comp Metabolic Uee869 TPRO 6.5 g/dL 04/14/2015 Comp Metabolic Emg550 GLOB 2.5 g/dL 04/14/2015 Comp Metabolic Scl180 A/G Ratio 1.6 Ratio 04/14/2015 Comp Metabolic Vpb240 Osmo 280 mOsmo 04/14/2015 Cbc With Differential [...] Ord2 RDW 16.5 % 04/14/2015 CHEM 14 1136368 AST 15 U/L 09/11/2013 CHEM 14 2181074 ALT 25 IU/L 09/11/2013 CHEM 14 7688803 BUN 29 MG/DL 09/11/2013 CHEM 14 1520857 ALBUMIN 3.8 GM/DL 09/11/2013 CHEM 14 7370162 CHLORIDE 99 MMOL/L 09/11/2013 CHEM 14 4302896 BILI TOT 0.2 MG/DL 09/11/2013 CHEM 14 1438888 ALK PHOS 118 U/L 09/11/2013 CHEM 14 1350595 SODIUM 136 MMOL/L 09/11/2013 CHEM 14 5646550 CREATININE 1.26 MG/DL 09/11/2013 CHEM 14 2323454 CALCIUM 9.0 MG/DL 09/11/2013 CHEM 14 4187089 POTASSIUM 5.0 MMOL/L 09/11/2013 CHEM 14 1253778 PROT TOT 6.2 GM/DL 09/11/2013 CHEM 14 9116991 GLUCOSE 254 MG/DL 09/11/2013 CHEM 14 1168305 BICARB 29 MMOL/L 09/11/2013 CHEM 14 0358779 ANION GAP 8 MEQ/L 09/11/2013 GFR CALC 6075624 GFR AA 52.0L ML/MIN 09/11/2013 GFR CALC GFR NON-AA 43.0L ML/MIN 09/11/2013 FREE T4 [id number] FREE T4 1.35 NG/DL 08/02/2013 CBC 4269905 WBC 7.5 10e9/L 08/01/2013 CBC 7845035 RBC 3.88 10e12/L 08/01/2013 CBC 9437307 HGB 12.1 g/dL 08/01/2013 CBC 0127714 HCT DET 37.6 % 08/01/2013 CBC 9175550 MCV 96.9 fL 08/01/2013 CBC 5807267 MCH 31.2 pg 08/01/2013 CBC 2833287 MCHC 32.2 g/dL 08/01/2013 CBC 0512686 PLT 289 10e9/L 08/01/2013 CBC 6264756 MPV 9.6 fL 08/01/2013 CBC 1238316 JOSE[place] % 56.0 % 08/01/2013 CBC 3885587 LY % 31.6 % 08/01/2013 CBC 1557042 MON % 10.0 % 08/01/2013 CBC 3958431 EOS % 1.7 % 08/01/2013 CBC 0313579 BASO % 0.7 % 08/01/2013 CBC 4114906 RDW 15.5 % 08/01/2013 CBC 2182646 ABS JOSEFINA 4.20 10e9/L 08/01/2013 CBC 5576938 ABS LYMPH 2.37 10e9/L 08/01/2013 CBC 1937183 ABS MONO 0.75 10e9/L 08/01/2013 CBC 4784956 ABS EOS 0.13 10e9/L 08/01/2013 CBC 6940157 ABS BASO 0.05 10e9/L 08/01/2013 CBC 3162684 RDW-SD 53.5 fL 08/01/2013 TSH 1413189 TSH 6.497 uIU/ML 08/01/2013 CHEM 14 4820106 AST 53 U/L 08/01/2013 CHEM 14 0858527 ALT 36 IU/L 08/01/2013 CHEM 14 1318649 BUN 16 MG/DL 08/01/2013 CHEM 14 3571501 ALBUMIN 4.2 GM/DL 08/01/2013 CHEM 14 0613198 CHLORIDE 103 MMOL/L 08/01/2013 CHEM 14 9884288 BILI TOT 0.4 MG/DL 08/01/2013 CHEM 14 5575144 ALK PHOS 113 U/L 08/01/2013 CHEM 14 2613976 SODIUM 139 MMOL/L 08/01/2013 CHEM 14 6832285 CREATININE 0.83 MG/DL 08/01/2013 CHEM 14 7080353 CALCIUM 9.5 MG/DL 08/01/2013 CHEM 14 3653000 POTASSIUM 4.2 MMOL/L 08/01/2013 CHEM 14 9245476 PROT TOT 6.4 GM/DL 08/01/2013 CHEM 14 3358368 GLUCOSE 135 MG/DL 08/01/2013 CHEM 14 4578836 BICARB 26 MMOL/L 08/01/2013 CHEM 14 1775874 ANION GAP 10 MEQ/L 08/01/2013 A1C HPLC 9585118 A1C HPLC 97947-3 8.1 % 08/01/2013 GFR CALC 9302899 GFR AA >60 ML/MIN 08/01/2013 GFR CALC 3439921 GFR NON-AA >60 ML/MIN 08/01/2013 CBC 6196215 WBC 10.4 10e9/L 03/21/2013 CBC 9960041 RBC 4.27 10e12/L 03/21/2013 CBC 4934521 HGB 13.1 g/dL 03/21/2013 CBC 4152634 HCT DET 41.2 % 03/21/2013 CBC 8208998 MCV 96.5 fL 03/21/2013 CBC 7534514 MCH 30.7 pg 03/21/2013 CBC 0124420 MCHC 31.8 g/dL 03/21/2013 CBC 1336451 PLT 398 10e9/L 03/21/2013 CBC 6403893 MPV 10.9 fL 03/21/2013 CBC 5449715 JO[place] % 65.4 % 03/21/2013 CBC 2458221 LY % 25.6 % 03/21/2013 CBC 9149279 MON % 6.7 % 03/21/2013 CBC 1492380 EOS % 1.9 % 03/21/2013 CBC 4097483 BASO % 0.4 % 03/21/2013 CBC 6315148 RDW 14.2 % 03/21/2013 CBC 8683325 ABS JOSEFINA 6.80 10e9/L 03/21/2013 CBC 9170236 ABS LYMPH 2.66 10e9/L 03/21/2013 CBC 9340863 ABS MONO 0.70 10e9/L 03/21/2013 CBC 1797213 ABS EOS 0.20 10e9/L 03/21/2013 CBC 0501481 ABS BASO 0.04 10e9/L 03/21/2013 CBC 2143425 RDW-SD 48.7 fL 03/21/2013 GFR CALC 3191058 GFR AA 57.0L ML/MIN 03/21/2013 GFR CALC 5840540 GFR NON-AA 47.0L ML/MIN 03/21/2013 CHEM 14 9259979 AST 22 U/L 03/21/2013 CHEM 14 5711393 ALT 22 IU/L 03/21/2013 CHEM 14 2458865 BUN 29 MG/DL 03/21/2013 CHEM 14 7121061 ALBUMIN 4.1 GM/DL 03/21/2013 CHEM 14 2881282 CHLORIDE 99 MMOL/L 03/21/2013 CHEM 14 0502296 BILI TOT 0.3 MG/DL 03/21/2013 CHEM 14 3596325 ALK PHOS 123 U/L 03/21/2013 CHEM 14 8706038 SODIUM 137 MMOL/L 03/21/2013 CHEM 14 3531687 CREATININE 1.16 MG/DL 03/21/2013 CHEM 14 6411605 CALCIUM 9.1 MG/DL 03/21/2013 CHEM 14 7016229 POTASSIUM 4.1 MMOL/L 03/21/2013 CHEM 14 7850649 PROT TOT 6.7 GM/DL 03/21/2013 CHEM 14 4802841 GLUCOSE 209 MG/DL 03/21/2013 CHEM 14 7651493 BICARB 26 MMOL/L 03/21/2013 CHEM 14 6421956 ANION GAP 12 MEQ/L 03/21/2013 A1C HPLC 6558738 A1C HPLC 22733-5 6.6 % 03/21/2013 GFR CALC 2860017 GFR AA >60 ML/MIN 01/17/2013 GFR CALC 9972327 GFR NON-AA 51.0L ML/MIN 01/17/2013 CHEM 14 6253039 AST 18 U/L 01/17/2013 CHEM 14 2401493 ALT 32 IU/L 01/17/2013 CHEM 14 0624013 BUN 22 MG/DL 01/17/2013 CHEM 14 6541265 ALBUMIN 4.1 GM/DL 01/17/2013 CHEM 14 6408963 CHLORIDE 99 MMOL/L 01/17/2013 CHEM 14 8888039 BILI TOT 0.3 MG/DL 01/17/2013 CHEM 14 1218966 ALK PHOS 110 U/L 01/17/2013 CHEM 14 6006272 SODIUM 138 MMOL/L 01/17/2013 CHEM 14 2151230 CREATININE 1.09 MG/DL 01/17/2013 CHEM 14 2820235 CALCIUM 8.8 MG/DL 01/17/2013 CHEM 14 1463715 POTASSIUM 3.5 MMOL/L 01/17/2013 CHEM 14 8143900 PROT TOT 6.1 GM/DL 01/17/2013 CHEM 14 0130735 GLUCOSE 163 MG/DL 01/17/2013 CHEM 14 4791627 BICARB 29 MMOL/L 01/17/2013 CHEM 14 1768505 ANION GAP 10 MEQ/L 01/17/2013 CBC 7208196 WBC 8.0 10e9/L 01/17/2013 CBC 7208402 RBC 3.85 10e12/L 01/17/2013 CBC 4314925 HGB 12.6 g/dL 01/17/2013 CBC 1417418 HCT DET 38.0 % 01/17/2013 CBC 7955581 MCV 98.7 fL 01/17/2013 CBC 3032277 MCH 32.7 pg 01/17/2013 CBC 1522715 MCHC 33.2 g/dL 01/17/2013 CBC 0316452 PLT 325 10e9/L 01/17/2013 CBC 2612952 MPV 10.4 fL 01/17/2013 CBC 0244774 [place] % 64.6 % 01/17/2013 CBC 8826310 LY % 27.0 % 01/17/2013 CBC 0743692 MON % 6.8 % 01/17/2013 CBC 0526196 EOS % 1.4 % 01/17/2013 CBC 1434252 BASO % 0.2 % 01/17/2013 CBC 4450914 RDW 15.5 % 01/17/2013 CBC 1478065 ABS JOSEFINA 5.17 10e9/L 01/17/2013 CBC 0930089 ABS LYMPH 2.16 10e9/L 01/17/2013 CBC 0079403 ABS MONO 0.54 10e9/L 01/17/2013 CBC 8676766 ABS EOS 0.11 10e9/L 01/17/2013 CBC 5147503 ABS BASO 0.02 10e9/L 01/17/2013 CBC 8512038 RDW-SD 54.3 fL 01/17/2013 TSH 2652505 TSH 3.683 uIU/ML 12/31/2012 FREE T4 9142138 FREE T4 1.34 NG/DL 12/31/2012 A1C HPLC 0817558 A1C HPLC 37001-9 6.6 % 12/21/2012 CHEM 14 3871904 AST 16 U/L 12/20/2012 CHEM 14 6404200 ALT 36 IU/L 12/20/2012 CHEM 14 2499080 BUN 26 MG/DL 12/20/2012 CHEM 14 3176716 ALBUMIN 4.2 GM/DL 12/20/2012 CHEM 14 1423045 CHLORIDE 103 MMOL/L 12/20/2012 CHEM 14 4891096 BILI TOT 0.4 MG/DL 12/20/2012 CHEM 14 4323180 ALK PHOS 107 U/L 12/20/2012 CHEM 14 5728224 SODIUM 141 MMOL/L 12/20/2012 CHEM 14 8106317 CREATININE 0.73 MG/DL 12/20/2012 CHEM 14 8847644 CALCIUM 9.2 MG/DL 12/20/2012 CHEM 14 2468394 POTASSIUM 4.3 MMOL/L 12/20/2012 CHEM 14 4453994 PROT TOT 6.2 GM/DL 12/20/2012 CHEM 14 1384524 GLUCOSE 135 MG/DL 12/20/2012 CHEM 14 4819300 BICARB 32 MMOL/L 12/20/2012 CHEM 14 0515828 ANION GAP 6 MEQ/L 12/20/2012 GFR CALC 6228993 GFR AA >60 ML/MIN 12/20/2012 GFR CALC 4625829 GFR NON-AA >60 ML/MIN 12/20/2012 CBC 6568787 WBC 8.4 10e9/L 12/20/2012 CBC 6909812 RBC 4.30 10e12/L 12/20/2012 CBC 7130012 HGB 13.9 g/dL 12/20/2012 CBC 9859087 HCT DET 41.8 % 12/20/2012 CBC 6690206 MCV 97.2 fL 12/20/2012 CBC 6289206 MCH 32.3 pg 12/20/2012 CBC 2469938 MCHC 33.3 g/dL 12/20/2012 CBC 7291715 PLT 358 10e9/L 12/20/2012 CBC 6109297 MPV 10.2 fL 12/20/2012 CBC 4387976 JOSEFINA % 63.3 % 12/20/2012 CBC 5240792 LY % 28.9 % 12/20/2012 CBC 8226574 MON % 6.3 % 12/20/2012 CBC 2483427 EOS % 1.1 % 12/20/2012 CBC 5575831 BASO % 0.4 % 12/20/2012 CBC 4546963 RDW 15.3 % 12/20/2012 CBC 3850192 ABS JOSEFINA 5.32 10e9/L 12/20/2012 CBC 1904467 ABS LYMPH 2.43 10e9/L 12/20/2012 CBC 5022077 ABS MONO 0.53 10e9/L 12/20/2012 CBC 9172367 ABS EOS 0.09 10e9/L 12/20/2012 CBC 5317169 ABS BASO 0.03 10e9/L 12/20/2012 CBC 4812111 RDW-SD 51.9 fL 12/20/2012 GFR CALC 3599958 GFR AA >60 ML/MIN 02/01/2012 GFR CALC 8166153 GFR NON-AA >60 ML/MIN 02/01/2012 CBC 6386298 WBC 10.8 10e9/L 02/01/2012 CBC 1234663 RBC 3.86 10e12/L 02/01/2012 CBC 2552763 HGB 11.8 g/dL 02/01/2012 CBC 0544741 HCT DET 36.3 % 02/01/2012 CBC 2330479 MCV 94.0 fL 02/01/2012 CBC 3757434 MCH 30.6 pg 02/01/2012 CBC 6187573 MCHC 32.5 g/dL 02/01/2012 CBC 3550188 PLT 321 10e9/L 02/01/2012 CBC 4008874 MPV 10.3 fL 02/01/2012 CBC 5724100 JOSEFINA % 75.9 % 02/01/2012 CBC 0096001 LY % 16.1 % 02/01/2012 CBC 6512541 MON % 6.8 % 02/01/2012 CBC 5158880 EOS % 1.0 % 02/01/2012 CBC 8879063 BASO % 0.2 % 02/01/2012 CBC 2361309 RDW 14.2 % 02/01/2012 CBC 2181157 ABS JOSEFINA 8.20 10e9/L 02/01/2012 CBC 9770534 ABS LYMPH 1.74 10e9/L 02/01/2012 CBC 9585107 ABS MONO 0.73 10e9/L 02/01/2012 CBC 7110888 ABS EOS 0.11 10e9/L 02/01/2012 CBC 4981737 ABS BASO 0.02 10e9/L 02/01/2012 CBC 0238385 RDW-SD 47.2 fL 02/01/2012 BRAIN PEP 8195640 BRAIN PEP FOOTNOTE pg/mL 02/01/2012 CHEM 14 7459297 AST 26 U/L 02/01/2012 CHEM 14 5472422 ALT 36 IU/L 02/01/2012 CHEM 14 5746517 BUN 29 MG/DL 02/01/2012 CHEM 14 2775800 ALBUMIN 3.7 GM/DL 02/01/2012 CHEM 14 7800233 CHLORIDE 105 MMOL/L 02/01/2012 CHEM 14 0804763 BILI TOT 0.2 MG/DL 02/01/2012 CHEM 14 5705458 ALK PHOS 89 U/L 02/01/2012 CHEM 14 8394960 SODIUM 141 MMOL/L 02/01/2012 CHEM 14 2554039 CREATININE 0.76 MG/DL 02/01/2012 CHEM 14 1808443 CALCIUM 9.0 MG/DL 02/01/2012 CHEM 14 4336030 POTASSIUM 4.8 MMOL/L 02/01/2012 CHEM 14 1661332 PROT TOT 5.5 GM/DL 02/01/2012 CHEM 14 1754525 GLUCOSE 83 MG/DL 02/01/2012 CHEM 14 2107473 BICARB 31 MMOL/L 02/01/2012 CHEM 14 7102192 ANION GAP 5 MEQ/L 02/01/2012 GFR CALC 8783900 GFR AA >60 ML/MIN 11/30/2011 GFR CALC 8060847 GFR NON-AA >60 ML/MIN 11/30/2011 CHEM 14 4444507 AST 14 U/L 11/30/2011 CHEM 14 3863290 ALT 17 IU/L 11/30/2011 CHEM 14 6362334 BUN 12 MG/DL 11/30/2011 CHEM 14 5843935 ALBUMIN 4.3 GM/DL 11/30/2011 CHEM 14 6507382 CHLORIDE 104 MMOL/L 11/30/2011 CHEM 14 6995906 BILI TOT 0.3 MG/DL 11/30/2011 CHEM 14 9458598 ALK PHOS 83 U/L 11/30/2011 CHEM 14 6163796 SODIUM 143 MMOL/L 11/30/2011 CHEM 14 8957373 CREATININE 0.71 MG/DL 11/30/2011 CHEM 14 1184283 CALCIUM 9.7 MG/DL 11/30/2011 CHEM 14 0442372 POTASSIUM 4.4 MMOL/L 11/30/2011 CHEM 14 0356965 PROT TOT 6.3 GM/DL 11/30/2011 CHEM 14 9190163 GLUCOSE 107 MG/DL 11/30/2011 CHEM 14 0276839 BICARB 27 MMOL/L 11/30/2011 CHEM 14 4401571 ANION GAP 12 MEQ/L 11/30/2011 CBC 7165308 WBC 8.7 10e9/L 11/30/2011 CBC 3767519 RBC 4.40 10e12/L 11/30/2011 CBC 0191807 HGB 13.6 g/dL 11/30/2011 CBC 0355989 HCT DET 41.0 % 11/30/2011 CBC 2726547 MCV 93.2 fL 11/30/2011 CBC 0364853 MCH 30.9 pg 11/30/2011 CBC 4245110 MCHC 33.2 g/dL 11/30/2011 CBC 7098338 PLT 328 10e9/L 11/30/2011 CBC 9067996 MPV 10.7 fL 11/30/2011 CBC 5828395 JOSEFINA % 68.4 % 11/30/2011 CBC 8240033 LY % 22.4 % 11/30/2011 CBC 8903740 MON % 7.9 % 11/30/2011 CBC 0209812 EOS % 1.1 % 11/30/2011 CBC 5016599 BASO % 0.2 % 11/30/2011 CBC 5975431 RDW 13.5 % 11/30/2011 CBC 0193788 ABS JOSEFINA 5.95 10e9/L 11/30/2011 CBC 6573305 ABS LYMPH 1.95 10e9/L 11/30/2011 CBC 0883366 ABS MONO 0.69 10e9/L 11/30/2011 CBC 4471435 ABS EOS 0.10 10e9/L 11/30/2011 CBC 3460485 ABS BASO 0.02 10e9/L 11/30/2011 CBC 5681219 RDW-SD 45.0 fL 11/30/2011 URINALYSIS NONAUTO W/O SCOPE 78943 Specific [place] 1.030 DateTime(Free Text in Aprima) URINALYSIS NONAUTO W/O SCOPE 44079 PH 5 DateTime(Free Text in Aprima) URINALYSIS NONAUTO W/O SCOPE 80020 GLUCOSE neg DateTime( Free Text in Aprima) URINALYSIS NONAUTO W/O SCOPE 14510 Protein neg DateTime( Free Text in Apr[employer]) URINALYSIS NONAUTO W/O SCOPE 53220 Blood neg DateTime(Free Text in Aprima) URINALYSIS NONAUTO W/O SCOPE 07182 Bilirubin neg DateTime(Free Text in Apr[employer]) URINALYSIS NONAUTO W/O SCOPE 16305 Ketones neg DateTime( Free Text in Apr[employer]) URINALYSIS NONAUTO W/O SCOPE 79414 Urobilinogen neg DateTime(Free Text in Apr[employer]) URINALYSIS NONAUTO W/O SCOPE 18093 Nitrite neg DateTime( Free Text in Apr[employer]) URINALYSIS NONAUTO W/O SCOPE 83657 Leukocytes neg DateTime(Free Text in Aprima) UA 10881 Specific [place] 1.010 DateTime(Free Text in Aprima ) UA 64153 PH 5 DateTime(Free Text in Aprima) UA 62316 GLUCOSE N DateTime(Free Text in Aprima) UA 86667 Protein N DateTime(Free Text in Aprima) UA 56200 Blood TRACE DateTime(Free Text in Aprima) UA 78329 Bilirubin N DateTime(Free Text in Aprima) UA 54050 Ketones N DateTime(Free Text in Aprima) UA 90720 Urobilinogen N DateTime(Free Text in Aprima) UA 36729 Nitrite N DateTime(Free Text in Aprima) UA 19512 Leukocytes N DateTime(Free Text in Aprima) URINALYSIS NONAUTO W/O SCOPE 61658 Specific [place] 1.010 DateTime(Free Text in Apr[employer]) URINALYSIS NONAUTO W/O SCOPE 17112 PH 7.5 DateTime(Free Text in Aprima) URINALYSIS NONAUTO W/O SCOPE 37850 GLUCOSE DateTime( Free Text in Apr[employer]) URINALYSIS NONAUTO W/O SCOPE 17966 Protein trace DateTime(Free Text in Apr[employer]) URINALYSIS NONAUTO W/O SCOPE 04565 Blood DateTime(Free Text in Apr[employer]) URINALYSIS NONAUTO W/O SCOPE 17356 Bilirubin DateTime( Free Text in Apr[employer]) URINALYSIS NONAUTO W/O SCOPE 18433 Ketones DateTime( Free Text in Apr[employer]) URINALYSIS NONAUTO W/O SCOPE 09955 Urobilinogen DateTime (Free Text in Apr[employer]) URINALYSIS NONAUTO W/O SCOPE 42438 Nitrite DateTime( Free Text in Aprima) URINALYSIS NONAUTO W/O SCOPE 78759 Leukocytes DateTime( Free Text in Apr[employer]) URINALYSIS NONAUTO W/O SCOPE 84062 Specific [place] 1.010 DateTime(Free Text in Aprima) URINALYSIS NONAUTO W/O SCOPE 03051 PH 6 DateTime(Free Text in Aprima) URINALYSIS NONAUTO W/O SCOPE 59975 GLUCOSE DateTime( Free Text in Aprima) URINALYSIS NONAUTO W/O SCOPE 17274 Protein DateTime( Free Text in Aprima) URINALYSIS NONAUTO W/O SCOPE 96896 Blood DateTime(Free Text in Aprima) URINALYSIS NONAUTO W/O SCOPE 43416 Bilirubin DateTime( Free Text in Aprima) URINALYSIS NONAUTO W/O SCOPE 97060 Ketones DateTime( Free Text in Apr[employer]) URINALYSIS NONAUTO W/O SCOPE 48243 Urobilinogen DateTime (Free Text in Aprima) URINALYSIS NONAUTO W/O SCOPE 97119 Nitrite DateTime( Free Text in Apr[employer]) URINALYSIS NONAUTO W/O SCOPE 10022 Leukocytes DateTime( Free Text in Aprima) UA 49417 Specific [place] 1.020 DateTime(Free Text in Aprima ) UA 99762 PH 6 DateTime(Free Text in Aprima) UA 02809 GLUCOSE neg DateTime(Free Text in Aprima) UA 52562 Protein neg DateTime(Free Text in Aprima) UA 78590 Blood neg DateTime(Free Text in Aprima) UA 20219 Bilirubin neg DateTime(Free Text in Aprima) UA 81888 Ketones neg DateTime(Free Text in Aprima) UA 34399 Urobilinogen neg DateTime(Free Text in ) UA 26554 Nitrite neg DateTime(Free Text in ) UA 13255 Leukocytes neg DateTime(Free Text in ) Review [...] masses 08/01/2013 None Full Exam - General 1995 [...] General 1994 Ears/Nose/Throat lips/teeth/gingiva Overall: benign lips 03/21/2013 None [...] rate 03/21/2013 None Full Exam - General 1995 Cardiovascular extremities Overall: no clubbing 03/21/2013 None [...] tender to palpation Full Exam - General 1995 Neurologic deep [...] distress 09/01/2011 None Full Exam - General 1995 Constitutional general appearance Overall: well nourished 09/01/2011 [...] Codes Date URINALYSIS NONAUTO W/O SCOPE CPT-4: 75926 04/10/2018 GLUCOSE MONITORING CONT CPT-4: 24845 04/10/2018 OCCULT BLOOD FECES CPT -4: 33329 02/22/2018 URINALYSIS NONAUTO W/O SCOPE CPT-4: 84536 02/20/2018 URINALYSIS NONAUTO W/O SCOPE CPT-4: 83021 12/14/2017 URINALYSIS NONAUTO W/O SCOPE CPT-4: 01941 11/27/2017 PPPS, SUBSEQ VISIT CPT -4: G0439 10/27/2017 GLUCOSE MONITORING CONT CPT-4: 66767 09/27/2017 URINALYSIS NONAUTO W/O SCOPE CPT-4: 36669 06/30/2017 URINALYSIS NONAUTO W/O SCOPE CPT-4: 89800 11/25/2016 URINALYSIS NONAUTO W/O SCOPE CPT-4: 69709 10/21/2016 URINALYSIS NONAUTO W/O SCOPE CPT-4: 13023 06/24/2016 URINALYSIS NONAUTO W/O SCOPE CPT-4: 54797 04/11/2016 ADMIN PNEUMOCOCCAL VACCINE SNOMED CT: 08253919 CPT-4: G0009 02/26/2016 PNEUMOCOCCAL VACC 13 ANURADHA IM Formatting Model/CDA Sections, Assigned to/Jada Velazquez SNOMED CT: [id number] CPT-4: [id number] 02/26/2016 URINALYSIS NONAUTO W/O SCOPE CPT-4: 36661 02/10/2016 URINALYSIS NONAUTO W/O SCOPE CPT-4: 93872 11/27/2015 URINALYSIS NONAUTO W/O SCOPE CPT-4: 71011 11/02/2015 INITIAL PREVENTIVE EXAM CPT-4: G0402 09/29/2015 URINALYSIS NONAUTO W/O SCOPE CPT-4: 07861 07/20/2015 TRIAMCINOLONE ACET INJ NOS CPT-4: J3301 06/26/2015 URINALYSIS NONAUTO W/O SCOPE CPT-4: 33251 11/05/2014 URINALYSIS NONAUTO W/O SCOPE CPT-4: 35318 04/21/2014 CULTURE AEROBIC IDENTIFY CPT-4: 81996 12/12/2013 URINALYSIS NONAUTO W/O SCOPE CPT-4: 82947 11/18/2013 ROUTINE VENIPUNCTURE CPT-4: 93054 09/10/2013 ROUTINE VENIPUNCTURE CPT-4: 20903 08/01/2013 URINALYSIS NONAUTO W/O SCOPE CPT-4: 99722 06/28/2013 TRIAMCINOLONE ACET INJ NOS CPT-4: J3301 05/07/2013 DRAIN/INJECT JOINT/BURSA CPT-4: 25720 05/07/2013 ROUTINE VENIPUNCTURE CPT-4: 02285 03/21/2013 ROUTINE VENIPUNCTURE CPT-4: 76932 01/17/2013 URINALYSIS NONAUTO W/O SCOPE CPT-4: 35156 01/01/2013 ROUTINE VENIPUNCTURE CPT-4: 40220 12/31/2012 ROUTINE VENIPUNCTURE CPT-4: 76145 12/20/2012 URINALYSIS NONAUTO W/O SCOPE CPT-4: 21469 11/05/2012 DRAIN/INJECT JOINT/BURSA CPT-4: 09653 09/21/2012 TRIAMCINOLONE ACET INJ NOS CPT-4: J3301 09/21/2012 URINALYSIS NONAUTO W/O SCOPE CPT-4: 70900 07/19/2012 TRIAMCINOLONE ACET INJ NOS CPT-4: J3301 07/06/2012 Pneumococcal Polysaccharide Vaccine, 23-Valent, Ad CPT-4: 86565 06/07/2012 IMMUNIZATION ADMIN CPT -4: 51568 06/07/2012 TRIAMCINOLONE ACET INJ NOS CPT-4: J3301 05/02/2012 ROUTINE VENIPUNCTURE CPT-4: 63357 02/01/2012 URINALYSIS NONAUTO W/O SCOPE CPT-4: 77836 02/01/2012 TRIAMCINOLONE ACET INJ NOS CPT-4: J3301 12/14/2011 INJ TRIGGER POINT 1/2 MUSCL CPT-4: 20532 12/14/2011 PROMETHAZINE HCL INJECTION CPT-4: J2550 11/30/2011 ROUTINE VENIPUNCTURE CPT-4: 16402 11/30/2011 TRIAMCINOLONE ACET INJ NOS CPT-4: J3301 08/01/2011 DRAIN/INJECT JOINT/BURSA CPT-4: 52098 08/01/2011 THER/PROPH/DIAG INJ SC/IM CPT-4: 56213 04/18/2011 TRIAMCINOLONE ACET INJ NOS CPT-4: J3301 04/18/2011 Vital Signs Date Vital 04/10/2018 Blood Pressure 1: 120/68 Code : 8480-6 BMI: 39.7 Code : 83713-6 Heart Rate 1 : 87 bpm Height: 5'2" SpO2: 99% Weight: 217 lbs 03/12/2018 Blood Pressure 1: 140/70 Code : 8480-6 BMI: 40.2 Code : 05172-9 Heart Rate 1 : 78 bpm Height: 5'2" SpO2: 98% Weight: 220 lbs 02/20/2018 Blood Pressure 1: 140/70 Code : 8480-6 BMI: 40.2 Code : 34434-9 Heart Rate 1 : 96 bpm Height: 5'2" SpO2: 93% Weight: 220 lbs 11/27/2017 Blood Pressure 1: 158/78 Code : 8480-6 BMI: 40.8 Code : 95770-5 Heart Rate 1 : 100 bpm Height: 5'2" SpO2: 95% Weight: 223 lbs 10/27/2017 Blood Pressure 1: 146/70 Code : 8480-6 BMI: 41.3 Code : 12781-5 Heart Rate 1 : 82 bpm Height: 5'2" SpO2: 99% Waist Measure (cm): 119 cm Weight: 226 lbs 09/15/2017 Blood Pressure 1: 136/66 Code : 8480-6 BMI: 41.5 Code : 17483-8 Heart Rate 1 : 94 bpm Height: 5'2" SpO2: 96% Weight: 227 lbs 08/18/2017 Blood Pressure 1: 120/68 Code : 8480-6 BMI: 41.5 Code : 25303-1 Heart Rate 1 : 87 bpm Height: 5'2" SpO2: 94% Weight: 227 lbs 08/03/2017 Blood Pressure 1: 132/72 Code : 8480-6 BMI: 41.5 Code : 55597-7 Heart Rate 1 : 93 bpm Height: 5'2" SpO2: 95% Weight: 227 lbs 07/27/2017 Blood Pressure 1: 128/84 Code : 8480-6 BMI: 41.5 Code : 13357-3 Heart Rate 1 : 91 bpm Height: 5'2" SpO2: 98% Weight: 227 lbs 06/13/2017 Blood Pressure 1: 136/84 Code : 8480-6 BMI: 42.6 Code : 25986-0 Heart Rate 1 : 91 bpm Height: 5'2" SpO2: 94% Weight: 233 lbs 04/21/2017 Blood Pressure 1: 142/84 Code : 8480-6 BMI: 42.8 Code : 06630-2 Heart Rate 1 : 89 bpm Height: 5'2" SpO2: 94% Weight: 234 lbs 04/18/2017 Blood Pressure 1: 140/86 Code : 8480-6 BMI: 42.8 Code : 00974-7 Heart Rate 1 : 89 bpm Height: 5'2" SpO2: 97% Weight: 234 lbs 03/27/2017 Blood Pressure 1: 148/76 Code : 8480-6 BMI: 42.6 Code : 19788-3 Heart Rate 1 : 92 bpm Height: [...] Code : 8480-6 BMI: 44.3 Code : 24518-3 Heart Rate 1 : 90 bpm Height: 5'2" SpO2: 96% Weight: 242 lbs 01/30/2017 Blood Pressure 1: 132/72 Code : 8480-6 Heart Rate 1: 97 bpm Height: 5'2" SpO2: 96% Weight: 01/16/2017 Blood Pressure 1: 138/76 Code : 8480-6 BMI: 43.3 Code : 97129-2 Heart Rate 1 : 84 bpm Height: 5'2" SpO2: 99% Weight: 237 lbs 12/13/2016 Blood Pressure 1: 144/78 Code : 8480-6 Heart Rate 1: 96 bpm Height: 5'2" SpO2: 98% Temperature: 36.6 (C) / 97.9 (F) Weight: 11/11/2016 Blood Pressure 1: 144/80 Code : 8480-6 BMI: 43.0 Code : 92274-6 Heart Rate 1 : 89 bpm Height: 5'2" SpO2: 94% Temperature: 36.1 (C) / 97.0 (F) Weight: 235 lbs 10/28/2016 Blood Pressure 1: 156/82 Code : 8480-6 BMI: 43.9 Code : 91744-6 Heart Rate 1 : 78 bpm Height: [...] Code : 8480-6 BMI: 42.4 Code : 44599-1 Heart Rate 1 : 95 bpm Height: 5'2" SpO2: 98% Weight: 232 lbs 08/09/2016 Blood Pressure 1: 138/80 Code : 8480-6 BMI: 41.0 Code : 03721-8 Heart Rate 1 : 98 bpm Height: 5'2" SpO2: 97% Weight: 224 lbs 07/26/2016 Blood Pressure 1: 148/82 Code : 8480-6 BMI: 42.4 Code : 86671-2 Heart Rate 1 : 89 bpm Height: 5'2" SpO2: 97% Weight: 232 lbs 05/24/2016 Blood Pressure 1: 146/72 Code : 8480-6 BMI: 42.4 Code : 12185-7 Heart Rate 1 : 89 bpm Height: 5'2" SpO2: 99% Weight: 232 lbs 04/19/2016 Blood Pressure 1: 130/88 Code : 8480-6 BMI: 42.4 Code : 80564-3 Heart Rate 1 : 88 bpm Height: 5'2" SpO2: 98% Weight: 232 lbs 04/11/2016 Blood Pressure 1: 140/80 Code : 8480-6 BMI: 41.7 Code : 83902-9 Heart Rate 1 : 97 bpm Height: 5'2" SpO2: 95% Weight: 228 lbs 03/21/2016 Blood Pressure 1: 138/80 Code : 8480-6 BMI: 44.4 Code : 30312-7 Height: 5'2" Weight: 243 lbs 03/11/2016 Blood Pressure 1: 138/82 Code : 8480-6 BMI: 44.4 Code : 79190-8 Heart Rate 1 : 86 bpm Height: 5'2" SpO2: 95% Weight: 243 lbs 02/26/2016 Blood Pressure 1: 130/82 Code : 8480-6 BMI: 43.9 Code : 26345-2 Heart Rate 1 : 86 bpm Height: 5'2" SpO2: 97% Weight: 240 lbs 02/02/2016 Blood Pressure 1: 136/86 Code : 8480-6 Heart Rate 1: 56 bpm Height: SpO2: 96% Weight: 12/17/2015 Blood Pressure 1: 140/80 Code : 8480-6 BMI: 40.2 Code : 59424-4 Heart Rate 1 : 100 bpm Height: 5'2" SpO2: 99% Weight: 220 lbs 12/08/2015 Blood Pressure 1: 132/86 Code : 8480-6 Heart Rate 1: 100 bpm Height: SpO2: 97% Weight: 11/27/2015 Blood Pressure 1: 128/82 Code : 8480-6 BMI: 39.3 Code : 31492-9 Heart Rate 1 : 112 bpm Height: 5'2" SpO2: 96% Weight: 215 lbs 11/12/2015 Blood Pressure 1: 168/88 Code : 8480-6 Heart Rate 1: 106 bpm Height: 5'2" SpO2: 96% Weight: 11/10/2015 Blood Pressure 1: 156/80 Code : 8480-6 Heart Rate 1: 94 bpm Height: 5'2" SpO2: 96% Weight: 10/27/2015 Blood Pressure 1: 142/76 Code : 8480-6 BMI: 40.8 Code : 80266-7 Heart Rate 1 : 86 bpm Height: 5'2" SpO2: 97% Weight: 223 lbs 09/29/2015 Blood Pressure 1: 132/88 Code : 8480-6 BMI: 41.7 Code : 39622-3 Heart Rate 1 : 104 bpm Height: 5'2" SpO2: 94% Weight: 228 lbs 09/22/2015 Blood Pressure 1: 130/80 Code : 8480-6 BMI: 41.7 Code : 85755-5 Heart Rate 1 : 89 bpm Height: 5'2" SpO2: 97% Weight: 228 lbs 09/01/2015 Blood Pressure 1: 138/88 Code : 8480-6 BMI: 40.6 Code : 52946-0 Heart Rate 1 : 95 bpm Height: 5'2" SpO2: 95% Weight: 222 lbs 08/10/2015 Blood Pressure 1: 140/82 Code : 8480-6 BMI: 41.0 Code : 44802-0 Heart Rate 1 : 84 bpm Height: 5'2" SpO2: 97% Weight: 224 lbs 06/26/2015 Blood Pressure 1: 152/72 Code : 8480-6 BMI: 41.2 Code : 57962-8 Heart Rate 1 : 92 bpm Height: 5'2" SpO2: 96% Weight: 225 lbs 04/14/2015 Blood Pressure 1: 158/86 Code : 8480-6 BMI: 41.2 Code : 04482-3 Heart Rate 1 : 63 bpm Height: 5'2" SpO2: 93% Weight: 225 lbs 03/03/2015 Blood Pressure 1: 152/80 Code : 8480-6 BMI: 40.1 Code : 82998-1 Heart Rate 1 : 101 bpm Height: 5'2" SpO2: 97% Weight: 219 lbs 01/15/2015 Blood Pressure 1: 127/76 Code : 8480-6 BMI: 40.6 Code : 18815-3 Heart Rate 1 : 109 bpm Height: 5'2" SpO2: 97% Weight: 222 lbs 01/01/2015 Blood Pressure 1: 136/64 Code : 8480-6 BMI: 40.4 Code : 95728-0 Heart Rate 1 : 94 bpm Height: 5'2" SpO2: 96% Weight: 221 lbs 12/25/2014 Blood Pressure 1: 146/80 Code : 8480-6 Heart Rate 1: 95 bpm Height: 5'2" SpO2: 94% 11/04/2014 Blood Pressure 1: 110/70 Code : 8480-6 BMI: 40.2 Code : 14676-4 Heart Rate 1 : 878 bpm Height: 5'2" SpO2: 97% Weight: 220 lbs 09/08/2014 Blood Pressure 1: 142/78 Code : 8480-6 BMI: 39.5 Code : 83497-4 Heart Rate 1 : 97 bpm Height: 5'2" SpO2: 98% Weight: 216 lbs 08/29/2014 Blood Pressure 1: 140/90 Code : 8480-6 Blood Pressure 2: 120/70 Code: 8480-6 BMI: 40.2 Code: 23705-5 Heart Rate 1: 88 bpm Height: 5'2" Weight: 220 lbs 06/30/2014 Blood Pressure 1: 132/74 Code : 8480-6 BMI: 39.1 Code : 34988-2 Heart Rate 1 : 76 bpm Height: 5'2" Weight: 214 lbs 06/12/2014 Blood Pressure 1: 118/76 Code : 8480-6 BMI: 40.4 Code : 48306-2 Heart Rate 1 : 86 bpm Height: 5'2" SpO2: 96% Weight: 221 lbs 05/26/2014 Blood Pressure 1: 128/78 Code : 8480-6 BMI: 39.5 Code : 18969-4 Heart Rate 1 : 76 bpm Height: 5'2" Weight: 216 lbs 04/15/2014 Blood Pressure 1: 144/72 Code : 8480-6 BMI: 40.8 Code : 87826-6 Heart Rate 1 : 60 bpm Height: 5'2" Weight: 223 lbs 03/25/2014 Blood Pressure 1: 118/72 Code : 8480-6 BMI: 41.2 Code : 75695-8 Heart Rate 1 : 80 bpm Height: 5'2" Weight: 225 lbs 03/03/2014 Blood Pressure 1: 138/86 Code : 8480-6 BMI: 41.5 Code : 33696-3 Heart Rate 1 : 104 bpm Height: 5'2" Temperature: 36.1 (C) / 97.0 (F) Weight: 227 lbs 02/13/2014 Blood Pressure 1: 142/88 Code : 8480-6 BMI: 40.8 Code : 07794-2 Heart Rate 1 : 88 bpm Height: 5'2" Weight: 223 lbs 01/27/2014 Blood Pressure 1: 124/68 Code : 8480-6 BMI: 39.9 Code : 48356-8 Heart Rate 1 : 89 bpm Height: 5'2" SpO2: 94% Weight: 218 lbs 12/26/2013 Blood Pressure 1: 108/52 Code : 8480-6 BMI: 41.2 Code : 90407-0 Heart Rate 1 : 96 bpm Height: 5'2" Weight: 225 lbs 12/12/2013 Blood Pressure 1: 158/88 Code : 8480-6 BMI: 42.6 Code : 00391-3 Heart Rate 1 : 80 bpm Height: 5'2" Weight: 233 lbs 11/14/2013 Blood Pressure 1: 120/60 Code : 8480-6 BMI: 42.4 Code : 59592-9 Heart Rate 1 : 96 bpm Height: 5'2" Temperature: 5423.3 (C ) / 9794.0 (F) Weight: 232 lbs 10/21/2013 Blood Pressure 1: 100/60 Code : 8480-6 BMI: 41.9 Code : 07578-6 Heart Rate 1 : 96 bpm Height: 5'2" Weight: 229 lbs 10/03/2013 Blood Pressure 1: 122/72 Code : 8480-6 BMI: 42.3 Code : 79669-8 Heart Rate 1 : 84 bpm Height: 5'2" Weight: 231 lbs 09/27/2013 Blood Pressure 1: 112/58 Code : 8480-6 Heart Rate 1: 72 bpm SpO2: 93% Temperature: 36.2 (C) / 97.1 (F) Weight: 09/23/2013 Blood Pressure 1: 108/76 Code : 8480-6 BMI: 42.4 Code : 05424-6 Heart Rate 1 : 95 bpm Height: 5'2" SpO2: 96% Weight: 232 lbs 09/20/2013 Blood Pressure 1: 150/88 Code : 8480-6 BMI: 42.4 Code : 01454-9 Heart Rate 1 : 104 bpm Height: 5'2" Weight: 232 lbs 09/10/2013 Blood Pressure 1: 112/62 Code : 8480-6 Heart Rate 1: 88 bpm Weight: 238 lbs 08/19/2013 Blood Pressure 1: 102/58 Code : 8480-6 BMI: 43.7 Code : 30317-9 Heart Rate 1 : 80 bpm Height: 5'2" Weight: 239 lbs 08/12/2013 Blood Pressure 1: 110/60 Code : 8480-6 BMI: 43.3 Code : 52623-7 Heart Rate 1 : 90 bpm Height: 5'2" SpO2: 96% Weight: 236 lbs 8 oz 08/01/2013 Blood Pressure 1: 128/72 Code : 8480-6 BMI: 42.6 Code : 74008-3 Heart Rate 1 : 78 bpm Height: 5'2" SpO2: 97% Weight: 233 lbs 07/19/2013 Blood Pressure 1: 100/60 Code : 8480-6 BMI: 44.3 Code : 53423-4 Heart Rate 1 : 92 bpm Height: 5'2" Temperature: 36.2 (C) / 97.2 (F) Weight: 242 lbs 07/15/2013 Blood Pressure 1: 180/92 Code : 8480-6 Heart Rate 1: 115 bpm SpO2: 98% Weight: 06/27/2013 Blood Pressure 1: 114/64 Code : 8480-6 BMI: 44.1 Code : 15298-7 Heart Rate 1 : 114 bpm Height: 5'2" SpO2: 93% Weight: 241 lbs 06/10/2013 Blood Pressure 1: 174/86 Code : 8480-6 BMI: 44.1 Code : 93780-7 Heart Rate 1 : 132 bpm Height: 5'2" SpO2: 94% Temperature: 35.6 (C) / 96.0 (F) Weight: 241 lbs 05/07/2013 Blood Pressure 1: 160/88 Code : 8480-6 BMI: 43.5 Code : 46074-1 Heart Rate 1 : 108 bpm Height: 5'2" SpO2: 96% Weight: 238 lbs 04/16/2013 Blood Pressure 1: 116/62 Code : 8480-6 BMI: 44.6 Code : 41599-6 Heart Rate 1 : 90 bpm Height: 5'2" SpO2: 94% Weight: 244 lbs 03/21/2013 Blood Pressure 1: 102/64 Code : 8480-6 BMI: 42.8 Code : 63897-9 Height: 5'2" Weight: 234 lbs 02/12/2013 Blood Pressure 1: 130/78 Code : 8480-6 BMI: 42.0 Code : 28834-3 Heart Rate 1 : 100 bpm Height: 5'2" Weight: 229 lbs 8 oz 02/04/2013 Blood Pressure 1: 126/68 Code : 8480-6 BMI: 44.3 Code : 03876-2 Heart Rate 1 : 88 bpm Height: 5'2" Weight: 242 lbs 01/17/2013 Blood Pressure 1: 132/76 Code : 8480-6 Heart Rate 1: 121 bpm SpO2: 97% Weight: 242 lbs 12/31/2012 Blood Pressure 1: 144/90 Code : 8480-6 BMI: 43.0 Code : 50016-1 Heart Rate 1 : 96 bpm Height: 5'2" Temperature: 36.2 (C) / 97.2 (F) Weight: 235 lbs 12/20/2012 Blood Pressure 1: 156/96 Code : 8480-6 BMI: 42.4 Code : 72192-1 Heart Rate 1 : 96 bpm Height: [...] Code : 8480-6 BMI: 38.8 Code : 70238-4 Heart Rate 1 : 96 bpm Height: 5'2" Temperature: 36.3 (C) / 97.3 (F) Weight: 212 lbs 08/23/2012 Blood Pressure 1: 116/72 Code : 8480-6 BMI: 38.3 Code : 76121-2 Heart Rate 1 : 92 bpm Height: 5'2" Weight: 209 lbs 8 oz 08/13/2012 Blood Pressure 1: 140/92 Code : 8480-6 BMI: 37.3 Code : 25057-9 Heart Rate 1 : 104 bpm Height: 5'2" Weight: 204 lbs 08/07/2012 Blood Pressure 1: 148/98 Code : 8480-6 BMI: 36.6 Code : 45343-3 Heart Rate 1 : 102 bpm Height: [...] Code : 8480-6 BMI: 35.3 Code : 61912-6 Heart Rate 1 : 105 bpm Height: [...] december - she was seen by her powerhouse operator again in mid 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 She states that she saw her powerhouse operator and was to be started on another [...] Alleviating Factors medication 09/10/2013 went to [facility] on Monday and start on [...] differently. States she did eat BBQ from [employer] yesterday for lunch. hypertension Quality [...] Encounters Encounter Performer Location Codes Date ) 13596 EST. PATIENT, LEVEL IV Diagnosis: Essential (primary) hypertension[ICD10: I10] Diagnosis: Type 2 diabetes mellitus with hyperglycemia[ICD10: E11.65] Diagnosis: Generalized anxiety disorder[ICD10: F41.1] Diagnosis: Weakness[ICD10: R53.1] Rika Motta MD, [facility] CPT-4: 71833 04/10/2018 [id number]) 92447 EST. PATIENT, LEVEL IV Diagnosis: Type 2 diabetes mellitus with hyperglycemia[ICD10: E11.65] Diagnosis: Low back pain[ICD10: M54.5] Diagnosis: Essential (primary) hypertension[ICD10: I10] Diagnosis: Generalized anxiety disorder[ICD10: F41.1] Rika Motta MD, [facility] CPT-4: 84437 03/12/2018 ([id number]) 41698 EST. PATIENT, LEVEL III Diagnosis: Type 2 diabetes mellitus with hyperglycemia[ICD10: E11.65] Diagnosis: Essential (primary) hypertension[ICD10: I10] Diagnosis: Dysuria[ICD10: R30.0] Diagnosis: Vitamin D deficiency, unspecified[ICD10: E55.9] Diagnosis: Low back pain[ICD10: M54.5] Rika Motta MD, [facility] CPT-4: 06708 02/20/2018 ([id number]) 61006 EST. PATIENT, LEVEL III Diagnosis: Dysuria[ICD10: R30.0] Diagnosis: Essential (primary) hypertension[ICD10: I10] Rika Motta MD, [facility] CPT-4: 67843 11/27/2017 ([id number]) 81669 EST. PATIENT, LEVEL III Diagnosis: Type 2 diabetes mellitus with hyperglycemia[ICD10: E11.65] Diagnosis: Chronic pain syndrome[ICD10: G89.4] Rika Motta MD, [facility] CPT-4: 69153 09/15/2017 ([id number]) 11065 EST. 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 PATIENT, LEVEL III Diagnosis: Chronic maxillary sinusitis[ICD10: J32.0] Diagnosis: Type 2 diabetes mellitus with hyperglycemia[ICD10: E11.65] Diagnosis: Hordeolum externum left upper eyelid[ICD10: H00.014] Rika Motta MD, [facility] CPT-4: 52983 08/03/2017 ([id number]) 30369 EST. PATIENT, LEVEL IV Diagnosis: Type 2 diabetes mellitus with hyperglycemia[ICD10: E11.65] Diagnosis: Hordeolum externum left upper eyelid[ICD10: H00.014] Diagnosis: Essential (primary) hypertension[ICD10: I10] Diagnosis: Chronic obstructive pulmonary disease, unspecified[ICD10: J44.9] Rika Motta MD, [facility] CPT-4: 97725 07/27/2017 ([id number]) 69990 EST. PATIENT, LEVEL IV Diagnosis: Type 2 diabetes mellitus with hyperglycemia[ICD10: E11.65] Diagnosis: Essential (primary) hypertension[ICD10: I10] Tessie Motta MD, [facility] CPT-4: 95086 06/13/2017 01003 EST. PATIENT, LEVEL IV Diagnosis: Periapical abscess without sinus[ICD10: K04.7] Arlette Motta MD, [facility] CPT-4: 61412 04/21/2017 ([id number]) 98617 EST. PATIENT, LEVEL IV Diagnosis: Type 2 diabetes mellitus with hyperglycemia[ICD10: E11.65] Diagnosis: Cellulitis of abdominal wall[ICD10: L03.311] Diagnosis: Chronic pain syndrome[ICD10: G89.4] Diagnosis: Essential (primary) hypertension[ICD10: I10] Diagnosis: Unsteadiness on feet[ICD10: R26.81] Rika Motta MD, [facility] CPT-4: 28430 04/18/2017 ([id number]) 98704 EST. PATIENT, LEVEL IV Diagnosis: Type 2 diabetes mellitus with hyperglycemia[ICD10: E11.65] Diagnosis: Hypokalemia[ICD10: E87.6] Diagnosis: Essential (primary) hypertension[ICD10: I10] Diagnosis: Paroxysmal atrial fibrillation[ICD10: I48.0] Rika Motta MD, [facility] CPT-4: 65088 03/27/2017 ([id number]) 88829 EST. PATIENT, LEVEL IV Diagnosis: Essential (primary) hypertension[ICD10: I10] Diagnosis: Type 2 diabetes mellitus with hyperglycemia[ICD10: E11.65] Diagnosis: Hypokalemia[ICD10: E87.6] Diagnosis: Generalized abdominal pain[ICD10: R10.84] Rika Motta MD, [facility] CPT-4: 66207 02/27/2017 ([id number]) 35291 EST. PATIENT, LEVEL III Diagnosis: Drug induced constipation[ICD10: K59.03] Rika Motta MD, [facility] CPT-4: 95374 02/21/2017 ([id number]) 00674 EST. PATIENT, LEVEL IV Diagnosis: Generalized abdominal pain[ICD10: R10.84] Diagnosis: Hypokalemia[ICD10: E87.6] Diagnosis: Hypomagnesemia[ICD10: E83.42] Rika Motta MD, [facility] CPT-4: 23827 02/17/2017 ([id number]) 69250 EST. PATIENT, LEVEL IV Diagnosis: Paroxysmal atrial fibrillation[ICD10: I48.0] Diagnosis: Essential (primary) hypertension[ICD10: I10] Diagnosis: Chronic obstructive pulmonary disease, unspecified[ICD10: J44.9] Diagnosis: Type 2 diabetes mellitus with hyperglycemia[ICD10: E11.65] Diagnosis: Diarrhea, unspecified[ICD10: R19.7] Rika Motta MD, [facility] CPT-4: 68266 02/13/2017 ([id number]) 97139 EST. PATIENT, LEVEL IV Diagnosis: Type 2 diabetes mellitus with hyperglycemia[ICD10: E11.65] Diagnosis: Pain in right shoulder[ICD10: M25.511] Diagnosis: Chronic maxillary sinusitis[ICD10: J32.0] Rika Motta MD, [facility] CPT-4: 06568 01/30/2017 ([id number]) 28430 EST. PATIENT, LEVEL IV Diagnosis: Essential (primary) hypertension[ICD10: I10] Diagnosis: Type 2 diabetes mellitus with hyperglycemia[ICD10: E11.65] Diagnosis: Hypothyroidism, unspecified[ICD10: E03.9] Diagnosis: Generalized anxiety disorder[ICD10: F41.1] Diagnosis: Chronic pain syndrome[ICD10: G89.4] Diagnosis: Restless legs syndrome[ICD10: G25.81] Diagnosis: Obstructive sleep apnea (adult) (pediatric)[ICD10: G47.33] Rika Motta MD, [facility] CPT-4: 34233 01/16/2017 [id number] EST. PATIENT, LEVEL IV Diagnosis: Other acute sinusitis[ICD10: J01.80] Diagnosis: Diplopia[ICD10: H53.2] Arlette Motta MD, [facility] CPT-4: 30200 12/13/2016 ([id number]) 97847 EST. PATIENT, LEVEL IV Diagnosis: Essential (primary) hypertension[ICD10: I10] Diagnosis: Fasciculation[ICD10: R25.3] Diagnosis: Generalized anxiety disorder[ICD10: F41.1] Diagnosis: Other obesity due to excess calories[ICD10: E66.09] Diagnosis: Zoster without complications[ICD10: B02.9] Diagnosis: Unilateral primary osteoarthritis, right knee[ICD10: M17.11] Diagnosis: Unsteadiness on feet[ICD10: R26.81] Rika Motta MD, [facility] CPT-4: 52911 11/11/2016 ([id number]) 48700 EST. PATIENT, LEVEL IV Diagnosis: Zoster without complications[ICD10: B02.9] Diagnosis: Type 2 diabetes mellitus with hyperglycemia[ICD10: E11.65] Diagnosis: Vomiting, unspecified[ICD10: R11.10] Rika Motta MD, [facility] CPT-4: 18997 10/28/2016 ([id number]) 61202 EST. PATIENT, LEVEL III Diagnosis: Pain in right knee[ICD10: M25.561] Diagnosis: Zoster without complications[ICD10: B02.9] Rika Motta MD, [facility] CPT-4: 44295 10/13/2016 ([id number]) 65881 EST. PATIENT, LEVEL IV Diagnosis: Acute recurrent maxillary sinusitis[ICD10: J01.01] Diagnosis: Low back pain[ICD10: M54.5] Diagnosis: Pain in right knee[ICD10: M25.561] Diagnosis: Allergic rhinitis due to pollen[ICD10: J30.1] Rika Motta MD, [facility] CPT-4: 43951 09/23/2016 ([id number]) 25661 EST. PATIENT, LEVEL IV Diagnosis: Pain in right shoulder[ICD10: M25.511] Diagnosis: Type 2 diabetes mellitus with hyperglycemia[ICD10: E11.65] Diagnosis: Cervicalgia[ICD10: M54.2] Diagnosis: Candidiasis of skin and nail[ICD10: B37.2] Diagnosis: Low back pain[ICD10: M54.5] Rika Motta MD, [facility] CPT-4: 91695 09/13/2016 ([id number]) 26632 EST. 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 PATIENT, LEVEL IV Diagnosis: Type 2 diabetes mellitus with hyperglycemia[ICD10: E11.65] Diagnosis: Candidiasis of skin and nail[ICD10: B37.2] Diagnosis: Chronic obstructive pulmonary disease, unspecified[ICD10: J44.9] Diagnosis: Paroxysmal atrial fibrillation[ICD10: I48.0] Diagnosis: Pneumonia, unspecified organism[ICD10: J18.9] Rika Motta MD, [facility] CPT-4: 81671 07/26/2016 ([id number]) 40251 EST. PATIENT, LEVEL IV Diagnosis: Type 2 diabetes mellitus with hyperglycemia[ICD10: E11.65] Diagnosis: Generalized anxiety disorder[ICD10: F41.1] Diagnosis: Essential (primary) hypertension[ICD10: I10] Diagnosis: Chronic pain syndrome[ICD10: G89.4] Rika Motta MD, [facility] CPT-4: 85931 05/24/2016 ([id number]) 90716 EST. PATIENT, LEVEL IV Diagnosis: Menopausal and female climacteric states[ICD10: N95.1] Diagnosis: Type 2 diabetes mellitus with hyperglycemia[ICD10: E11.65] Diagnosis: Generalized anxiety disorder[ICD10: F41.1] Rika Motta MD, [facility] CPT-4: 00111 04/19/2016 ([id number]) 75586 EST. PATIENT, LEVEL IV Diagnosis: Type 2 diabetes mellitus with hyperglycemia[ICD10: E11.65] Diagnosis: Generalized anxiety disorder[ICD10: F41.1] Diagnosis: Essential (primary) hypertension[ICD10: I10] Diagnosis: Dysuria[ICD10: R30.0] Rika Motta MD, [facility] CPT-4: 92188 04/11/2016 ([id number]) 52733 EST. PATIENT, LEVEL IV Diagnosis: Generalized anxiety disorder[ICD10: F41.1] Diagnosis: Major depressive disorder, single episode, mild[ICD10: F32.0] Diagnosis: Hypothyroidism, unspecified[ICD10: E03.9] Diagnosis: Type 2 diabetes mellitus with hyperglycemia[ICD10: E11.65] Rika Motta MD, [facility] CPT-4: 82431 03/21/2016 ([id number]) 43734 EST. PATIENT, LEVEL IV Diagnosis: Type 2 diabetes mellitus with hyperglycemia[ICD10: E11.65] Diagnosis: Cellulitis of right lower limb[ICD10: L03.115] Diagnosis: Other elevated white blood cell count[ICD10: D72.828] Diagnosis: Localized edema[ICD10: R60.0] Rika Motta MD, [facility] CPT-4: 37323 03/11/2016 ([id number]) 43290 EST. PATIENT, LEVEL IV Diagnosis: Type 2 diabetes mellitus with hyperglycemia[ICD10: E11.65] Diagnosis: Localized edema[ICD10: R60.0] Diagnosis: Other conjunctivitis[ICD10: H10.89] Diagnosis: Obstructive sleep apnea (adult) (pediatric)[ICD10: G47.33] Diagnosis: Unspecified asthma, uncomplicated[ICD10: J45.909] Diagnosis: VAC STREP PNEUMONIAE-FLU[ICD10: Z23] Rika Motta MD, [facility] CPT-4: 70123 02/26/2016 ([id number]) 12425 EST. PATIENT, LEVEL IV Diagnosis: Essential (primary) hypertension[ICD10: I10] Diagnosis: Paroxysmal atrial fibrillation[ICD10: I48.0] Diagnosis: Type 2 diabetes mellitus with hyperglycemia[ICD10: E11.65] Diagnosis: Obstructive sleep apnea (adult) (pediatric)[ICD10: G47.33] Diagnosis: Chronic obstructive pulmonary disease, unspecified[ICD10: J44.9] Rika Motta MD, [facility] CPT-4: 79367 02/02/2016 ([id number]) 87457 EST. 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 PATIENT, LEVEL IV Diagnosis: Type 2 diabetes mellitus with hyperglycemia[ICD10: E11.65] Diagnosis: Generalized anxiety disorder[ICD10: F41.1] Diagnosis: Essential (primary) hypertension[ICD10: I10] Diagnosis: Restless legs syndrome[ICD10: G25.81] Diagnosis: Dysuria[ICD10: R30.0] Rika Motta MD, [facility] CPT-4: 16365 11/27/2015 48032 EST. PATIENT, LEVEL IV Diagnosis: Addisonian crisis[ICD10: E27.2] Arlette Motta MD, [facility] CPT-4 : 29931 11/12/2015 45211 EST. PATIENT, LEVEL IV Diagnosis: Acute bronchitis due to other specified organisms[ICD10: J20.8] Diagnosis: Other acute sinusitis[ICD10: J01.80] Diagnosis: Other malaise[ICD10: R53.81] Diagnosis: Cough[ICD10: R05] Arlette Motta MD, [facility] CPT-4: 47172 11/10/2015 37820 EST. PATIENT, LEVEL IV Diagnosis: Pain in left knee[ICD10: M25.562] Diagnosis: Cellulitis of right toe[ICD10: L03.031] Arlette Motta MD, [facility] CPT-4: 37330 10/27/2015 ([id number]) 10407 EST. PATIENT, LEVEL IV Diagnosis: Essential (primary) hypertension[ICD10: I10] Diagnosis: Localized edema[ICD10: R60.0] Diagnosis: Type 2 diabetes mellitus with hyperglycemia[ICD10: E11.65] Rika Motta MD, [facility] CPT-4: 79091 09/22/2015 ([id number]) 68494 EST. PATIENT, LEVEL IV Diagnosis: Essential (primary) hypertension[ICD10: I10] Diagnosis: Type 2 diabetes mellitus with hyperglycemia[ICD10: E11.65] Diagnosis: Cellulitis of right toe[ICD10: L03.031] Rika Motta MD, [facility] CPT-4: 44226 09/01/2015 ([id number]) 87490 EST. PATIENT, LEVEL IV Diagnosis: Type 2 diabetes mellitus with hyperglycemia[ICD10: E11.65] Diagnosis: Essential (primary) hypertension[ICD10: I10] Diagnosis: Generalized anxiety disorder[ICD10: F41.1] Diagnosis: Hypothyroidism, unspecified[ICD10: E03.9] Diagnosis: Body mass index (BMI) 40.0-44.9, adult[ICD10: Z68.41] Rika Motta MD, [facility] CPT-4: 13900 08/10/2015 35581 EST. PATIENT, LEVEL IV Diagnosis: Acute bronchitis due to other specified organisms[ICD10: J20.8] Diagnosis: Pain in left knee[ICD10: M25.562] Diagnosis: Type 2 diabetes mellitus with hyperglycemia[ICD10: E11.65] Arlette Motta MD, [facility] CPT-4: 15291 06/26/2015 ([id number]) 59294 EST. PATIENT, LEVEL IV Diagnosis: Cellulitis of right lower limb[ICD10: L03.115] Diagnosis: Type 2 diabetes mellitus with hyperglycemia[ICD10: E11.65] Diagnosis: Essential (primary) hypertension[ICD10: I10] Diagnosis: Edema, unspecified[ICD10: R60.9] Rika Motta MD, [facility] CPT-4: 69565 04/14/2015 ([id number]) 58977 EST. PATIENT, LEVEL IV Diagnosis: Essential (primary) hypertension[ICD10: I10] Diagnosis: Type 2 diabetes mellitus with hyperglycemia[ICD10: E11.65] Diagnosis: Localized edema[ICD10: R60.0] Diagnosis: Dysuria[ICD10: R30.0] Rika Motta MD, [facility] CPT-4: 74618 03/03/2015 ([id number]) [id number] EST. PATIENT, LEVEL III Diagnosis: Blister of leg[ICD9: 916.2] Diagnosis: Rash[ICD9: 782.1] Diagnosis: EDEMA[ICD9: 782.3] Tessie Motta MD, [facility] CPT-4: 96372 01/15/2015 ([id number]) [id number] EST. PATIENT, LEVEL IV Diagnosis: Cellulitis, leg[ICD9: 682.6] Diagnosis: DIABETES TYPE II[ICD9: 250.00] Tessie Motta MD, [facility] CPT- 4: 59078 01/01/2015 ([id number]) Miscellaneous no charge Diagnosis: CVA (cerebral vascular accident)[ICD9: 434.91] Isabella Motta MD, [facility] CPT-4: 84109 12/25/2014 ([id number]) [id number] EST. PATIENT, LEVEL IV Diagnosis: ESSENTIAL HYPERTENSION[ICD9: 401.9] Diagnosis: DM W/O COMPLICATION TYPE II, UNCONTROLLED[ICD9: 250.02] Diagnosis: EDEMA[ICD9: 782.3] Diagnosis: Dysuria[ICD9: 788.1] Rika Motta MD, [facility] CPT-4: 96849 11/04/2014 ([id number]) 04181 EST. PATIENT, LEVEL IV Diagnosis: EDEMA[ICD9: 782.3] Diagnosis: Cellulitis of right leg[ICD9: 682.6] Diagnosis: Allergic rhinitis[ICD9: 477.9] Rika Motta MD, [facility] CPT-4: 77525 09/08/2014 ([id number]) 51843 EST. PATIENT, LEVEL IV Diagnosis: EDEMA[ICD9: 782.3] Diagnosis: ESSENTIAL HYPERTENSION[ICD9: 401.9] Diagnosis: DIABETES TYPE II[ICD9: 250.00] Diagnosis: Cellulitis of right leg[ICD9: 682.6] Rika Motta MD, [facility] CPT-4: 61970 08/29/2014 ([id number]) 14535 EST. PATIENT, LEVEL III Diagnosis: EDEMA[ICD9: 782.3] Diagnosis: DIABETES TYPE II[ICD9: 250.00] Tessie Motta MD, [facility] CPT- 4: 34788 06/30/2014 ([id number]) 01217 EST. PATIENT, LEVEL IV Diagnosis: EDEMA[ICD9: 782.3] Diagnosis: DM W/O COMPLICATION TYPE II, UNCONTROLLED[ICD9: 250.02] Diagnosis: Sciatica[ICD9: 724.3] Tessie Motta MD, [facility] CPT-4: 26042 06/12/2014 ([id number]) 57466 EST. PATIENT, LEVEL III Diagnosis: Cellulitis, leg[ICD9: 682.6] Diagnosis: EDEMA[ICD9: 782.3] Rika Motta MD, [facility] CPT-4: 41134 05/26/2014 ([id number]) 82198 EST. PATIENT, LEVEL IV Diagnosis: DIABETES TYPE II[ICD9: 250.00] Diagnosis: Chronic sinusitis[ICD9: 473.9] Tessie Motta MD, [facility] CPT- 4: 37966 04/15/2014 ([id number]) 35071 EST. PATIENT, LEVEL IV Diagnosis: DM W/O COMPLICATION TYPE II, UNCONTROLLED[ICD9: 250.02] Diagnosis: CHRONIC SINUSITIS[ICD9: 473.9] Diagnosis: EDEMA[ICD9: 782.3] Diagnosis: Right knee pain[ICD9: 719.46] Rika Motta MD, [facility] CPT-4: 19444 03/25/2014 ([id number]) 50613 EST. PATIENT, LEVEL IV Diagnosis: Blister of leg[ICD9: 916.2] Diagnosis: EDEMA[ICD9: 782.3] Diagnosis: DM W/O COMPLICATION TYPE II, UNCONTROLLED[ICD9: 250.02] Diagnosis: ESSENTIAL HYPERTENSION[ICD9: 401.9] Rika Motta MD, [facility] CPT-4: 68117 03/03/2014 ([id number]) 45490 EST. PATIENT, LEVEL IV Diagnosis: CELLULITIS OF LEG[ICD9: 682.6] Diagnosis: Diabetes mellitus type 2, uncontrolled[ICD9: 250.02] Diagnosis: ESSENTIAL HYPERTENSION[ICD9: 401.9] Diagnosis: EDEMA[ICD9: 782.3] Tessie Motta MD, [facility] CPT-4: 84575 02/13/2014 ([id number]) 92177 EST. PATIENT, LEVEL IV Diagnosis: Diabetes mellitus type 2, uncontrolled[ICD9: 250.02] Tessie Motta MD, [facility] CPT-4: 56876 01/27/2014 ([id number]) 07388 EST. PATIENT, LEVEL III Diagnosis: OPEN WND KNEE/LEG/ANKLE[ICD9: 891.0] Diagnosis: EDEMA[ICD9: 782.3] Rika Motta MD, [facility] CPT-4: 80290 12/26/2013 ([id number]) 98375 EST. PATIENT, LEVEL III Diagnosis: Cellulitis of right leg[ICD9: 682.6] Diagnosis: OPEN WND KNEE/LEG/ANKLE[ICD9: 891.0] Rika Motta MD, [facility] CPT-4: 92564 12/12/2013 ([id number]) 86693 EST. PATIENT, LEVEL IV Diagnosis: Asthma exacerbation[ICD9: 493.92] Diagnosis: COUGH[ICD9: 786.2] Diagnosis: EDEMA[ICD9: 782.3] Rika Motta MD, [facility] CPT-4: 28718 11/14/2013 ([id number]) 04259 EST. PATIENT, LEVEL III Diagnosis: OPEN WND KNEE/LEG/ANKLE[ICD9: 891.0] Diagnosis: EDEMA[ICD9: 782.3] Rika Motta MD, [facility] CPT-4: 05978 10/21/2013 ([id number]) 39612 EST. PATIENT, LEVEL IV Diagnosis: ESSENTIAL HYPERTENSION[SNOMED: 54830884] Diagnosis: Right knee pain[ICD9: 719.46] Diagnosis: OPEN WND KNEE/LEG/ANKLE[ICD9: 891.0] Rika Motta MD, [facility] CPT-4: 00431 10/03/2013 ([id number]) Miscellaneous no charge Diagnosis: Open wound of leg[ICD9: 891.0] Rika Motta MD, [facility] CPT-4: 99252 09/27/2013 54433 EST. PATIENT, LEVEL II Diagnosis: Open wound of leg[ICD9: 891.0] Diagnosis: Wrist pain, left[ICD9: 719.43] Rika Motta MD, [facility] CPT-4: 15763 09/23/2013 ([id number]) 74022 EST. PATIENT, LEVEL IV Diagnosis: CELLULITIS OF LEG[ICD9: 682.6] Diagnosis: ESSENTIAL HYPERTENSION[SNOMED: 12473139] Diagnosis: EDEMA[ICD9: 782.3] Rika Motta MD, [facility] CPT-4: 17939 09/20/2013 ([id number]) 86633 EST. PATIENT, LEVEL IV Diagnosis: Open wound of right lower leg[ICD9: 891.0] Diagnosis: DM W/O COMPLICATION TYPE II, UNCONTROLLED[SNOMED: 99419228] Diagnosis: Edema[ICD9: 782.3] Rika Motta MD [facility] CPT-4: 60219 09/10/2013 ([id number]) 49884 EST. PATIENT, LEVEL III Diagnosis: DM W/O COMPLICATION TYPE II, UNCONTROLLED[SNOMED: 77866971] Diagnosis: EDEMA[ICD9: 782.3] Tessie Motta MD [facility] CPT-4: 34635 08/19/2013 ([id number]) 27875 EST. PATIENT, LEVEL IV Diagnosis: EDEMA[ICD9: 782.3] Diagnosis: DIABETES TYPE II[SNOMED: 095854548] Diagnosis: HYPOTHYROIDISM[ICD9: 244.9] Diagnosis: LUMBAGO[ICD9: 724.2] Diagnosis: SCIATICA[ICD9: 724.3] Tessie Motta MD [facility] CPT-4: 88208 08/12/2013 ([id number]) 89124 EST. PATIENT, LEVEL IV Diagnosis: DIABETES TYPE II[SNOMED: 242048073] Diagnosis: EDEMA[ICD9: 782.3] Diagnosis: HYPOTHYROIDISM[ICD9: 244.9] Diagnosis: Encounter for long-term (current) use of other medications[ICD9: V58.69] Diagnosis: LUMBAGO[ICD9: 724.2] Rika Motta MD [facility] CPT-4: 44686 08/01/2013 ([id number]) 90583 EST. PATIENT, LEVEL III Diagnosis: Blister of right foot[ICD9: 917.2] Rika Motta MD, [facility] CPT-4: 08417 07/19/2013 ([id number]) 47066 EST. PATIENT, LEVEL III Diagnosis: Cellulitis of right leg[ICD9: 682.6] Diagnosis: ESSENTIAL HYPERTENSION[SNOMED: 27242294] Diagnosis: EDEMA[ICD9: 782.3] Rika Motta MD [facility] CPT-4: 58904 07/15/2013 ([id number]) 24911 EST. PATIENT, LEVEL IV Diagnosis: DIABETES TYPE II[SNOMED: 212944514] Diagnosis: BACKACHE[ICD9: 724.5] Diagnosis: Muscle spasms of neck[ICD9: 728.85] Tessie Motta MD [facility] CPT-4: 20451 06/27/2013 ([id number]) 90156 EST. PATIENT, LEVEL IV Diagnosis: DM W/O COMPLICATION TYPE II, UNCONTROLLED[SNOMED: 31487603] Diagnosis: EDEMA[ICD9: 782.3] Diagnosis: OBESITY[ICD9: 278.00] Diagnosis: WHEEZING[ICD9: 786.07] Tessie Motta MD, [facility] CPT-4: 67013 06/10/2013 ([id number]) 89626 EST. PATIENT, LEVEL IV Diagnosis: CHRONIC SINUSITIS[ICD9: 473.9] Diagnosis: WHEEZING[ICD9: 786.07] Diagnosis: ACUTE BRONCHITIS[ICD9: 466.0] Diagnosis: Back pain[ICD9: 724.5] Tessie Motta MD [facility] CPT-4: 13567 05/07/2013 ([id number]) 98408 EST. PATIENT, LEVEL IV Diagnosis: EDEMA[ICD9: 782.3] Diagnosis: COPD (chronic obstructive pulmonary disease) with acute bronchitis[ ICD9: 491.22] Tessie Motta MD [facility] CPT-4: 33502 04/16/2013 ([id number]) 36462 EST. PATIENT, LEVEL IV Diagnosis: Lumbago[ICD9: 724.2] Diagnosis: DM W/O COMPLICATION TYPE II, UNCONTROLLED[SNOMED: 03877870] Diagnosis: EDEMA[ICD9: 782.3] Rika Motta MD, [facility] CPT-4: 02185 03/21/2013 ([id number]) 19898 EST. PATIENT, LEVEL IV Diagnosis: Abdominal pain[ICD9: 789.00] Diagnosis: EDEMA[ICD9: 782.3] Diagnosis: DIABETES TYPE II[SNOMED: 792098921] Tessie Motta MD, [facility] CPT-4: 34752 02/12/2013 ([id number]) 86704 EST. PATIENT, LEVEL III Diagnosis: EDEMA[ICD9: 782.3] Diagnosis: RESPIRATORY ABNORM NEC[ICD9: 786.09] Tessie Motta MD, [facility] CPT-4: 62972 02/04/2013 ([id number]) 54544 EST. PATIENT, LEVEL IV Diagnosis: Edema[ICD9: 782.3] Diagnosis: ESSENTIAL HYPERTENSION[SNOMED: 37194797] Tessie Motta MD [facility] CPT-4: 73073 01/17/2013 ([id number]) 95342 EST. 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 PATIENT, LEVEL IV Diagnosis: Cellulitis of left leg[ICD9: 682.6] Diagnosis: DIABETES TYPE II[SNOMED: 625149153] Diagnosis: ESSENTIAL HYPERTENSION[SNOMED: 03013964] Diagnosis: EDEMA[ICD9: 782.3] Rika Motta MD [facility] CPT-4: 22051 12/20/2012 ([id number]) 57333 EST. PATIENT, LEVEL III Diagnosis: Acute bronchitis[ICD9: 466.0] Diagnosis: COUGH[ICD9: 786.2] Tessie Motta MD [facility] CPT-4: 64443 10/29/2012 ([id number]) 57633 EST. PATIENT, LEVEL IV Diagnosis: ESSENTIAL HYPERTENSION[SNOMED: 50513722] Diagnosis: DIABETES TYPE II[SNOMED: 548224863] Diagnosis: HYPOTHYROIDISM[ICD9: 244.9] Tessie Motta MD [facility] CPT- 4: 29275 09/06/2012 ([id number]) 28025 EST. PATIENT, LEVEL IV Diagnosis: DIABETES TYPE II[SNOMED: 746996469] Diagnosis: ESSENTIAL HYPERTENSION[SNOMED: 95156244] Diagnosis: Diarrhea[ICD9: 787.91] Tessie Motta MD [facility] CPT-4: 62658 08/23/2012 ([id number]) 70920 EST. PATIENT, LEVEL III Diagnosis: ESSENTIAL HYPERTENSION[SNOMED: 39128155] Diagnosis: Gastroenteritis[ICD9: 558.9] Rika Motta MD, [facility] CPT-4: 31676 08/13/2012 ([id number]) 57346 EST. PATIENT, LEVEL IV Diagnosis: Diarrhea[ICD9: 787.91] Diagnosis: ESSENTIAL HYPERTENSION[SNOMED: 11702816] Diagnosis: DM W/O COMPLICATION TYPE II, UNCONTROLLED[SNOMED: 35814042] Rika Motta MD [facility] CPT-4: 86896 08/07/2012 ([id number]) 46496 EST. PATIENT, LEVEL III Diagnosis: Acute sinusitis[ICD9: 461.9] Diagnosis: Thrush[ICD9: 112.0] Rika Motta MD, [facility] CPT-4: 93413 07/06/2012 ([id number]) 41904 EST. PATIENT, LEVEL IV Diagnosis: ESSENTIAL HYPERTENSION[SNOMED: 88355780] Diagnosis: DIABETES TYPE II[SNOMED: 174005184] Tessie Motta MD [facility] CPT-4: 89158 06/07/2012 ([id number]) 37124 EST. PATIENT, LEVEL IV Diagnosis: ESSENTIAL HYPERTENSION[SNOMED: 08613201] Diagnosis: ACUTE SINUSITIS[ICD9: 461.9] Diagnosis: Labial cyst[ICD9: 624.8] Tessie Motta MD [facility] CPT-4: 86558 05/28/2012 (51803) 61759 EST. PATIENT, LEVEL IV Diagnosis: ESSENTIAL HYPERTENSION[SNOMED: 39786511] Diagnosis: EDEMA[ICD9: 782.3] Tessie Motta MD [facility] CPT-4: 81052 05/17/2012 ([id number]) 15551 EST. PATIENT, LEVEL IV Diagnosis: EDEMA[ICD9: 782.3] Diagnosis: ESSENTIAL HYPERTENSION[SNOMED: 61543967] Diagnosis: Diarrhea[ICD9: 787.91] Diagnosis: ALLERGIC RHINITIS[ICD9: 477.9] Tessie Motta MD, [facility] CPT- 4: 13597 05/02/2012 ([id number]) 74242 EST. PATIENT, LEVEL IV Diagnosis: ACUTE SINUSITIS[ICD9: 461.9] Diagnosis: ESSENTIAL HYPERTENSION[SNOMED: 33215613] Diagnosis: ALLERGIC RHINITIS[ICD9: 477.9] Tessie Motta MD [facility] CPT- 4: 14977 04/10/2012 ([id number]) 33564 EST. PATIENT, LEVEL IV Diagnosis: ESSENTIAL HYPERTENSION[SNOMED: 16105333] Diagnosis: Foreign body in foot or toe[ICD9: 917.6] Diagnosis: EDEMA[ICD9: 782.3] Tessie oMtta MD [facility] CPT-4: 30414 02/27/2012 ([id number]) 36705 EST. PATIENT, LEVEL IV Diagnosis: CELLULITIS OF FOOT[ICD9: 682.7] Diagnosis: DIABETES TYPE II[SNOMED: 629535967] Diagnosis: EDEMA[ICD9: 782.3] Tessie Motta MD [facility] CPT-4: 67989 02/15/2012 ([id number]) 30110 EST. PATIENT, LEVEL IV Diagnosis: EDEMA[ICD9: 782.3] Diagnosis: ESSENTIAL HYPERTENSION[SNOMED: 09913861] Diagnosis: ACUTE SINUSITIS[ICD9: 461.9] Diagnosis: Dysuria[ICD9: 788.1] Tessie Motta MD [facility] CPT-4: 62903 02/01/2012 ([id number]) 41122 EST. PATIENT, LEVEL IV Diagnosis: DIABETES TYPE II[SNOMED: 039317171] Diagnosis: Diverticulitis[ICD9: 562.11] Tessie Motta MD [facility] CPT- 4: 98867 12/14/2011 ([id number]) 38862 EST. PATIENT, LEVEL IV Diagnosis: Nausea vomiting and diarrhea[ICD9: 787.01] Diagnosis: ESSENTIAL HYPERTENSION[SNOMED: 20536511] Diagnosis: DM W/O COMPLICATION TYPE II, UNCONTROLLED[SNOMED: 61762227] Tessie Motta MD [facility] CPT-4: 70649 11/30/2011 ([id number]) 70609 EST. PATIENT, LEVEL IV Diagnosis: ESSENTIAL HYPERTENSION[SNOMED: 42599822] Diagnosis: DIABETES TYPE II[SNOMED: 482917168] Diagnosis: COUGH[ICD9: 786.2] Tessie Motta MD [facility] CPT-4: 01754 11/17/2011 ([id number]) Patient admitted to the hospital from clinic (NO CHARGE) Diagnosis: Tachycardia[ICD9: 785.0] Diagnosis: Dyspnea[ICD9: 786.09] Diagnosis: Wheezing[ICD9: 786.07] Diagnosis: FALL AGAINST OBJECT[ICD9: E888.1] Diagnosis: ANXIETY STATE[ICD9: 300.00] Diagnosis: ESSENTIAL HYPERTENSION[SNOMED: 44499521] Diagnosis: Chronic depression[ICD9: 311] Diagnosis: Diabetes mellitus type 2, uncontrolled[SNOMED: 17176015] Tessie Motta MD, [facility] CPT-4: 46690V 11/03/2011 ([id number]) 13354 EST. PATIENT, LEVEL IV Diagnosis: DIABETES TYPE II[SNOMED: 328117592] Diagnosis: ANXIETY STATE[ICD9: 300.00] Diagnosis: DEPRESSIVE DISORDER NEC[ICD9: 311] Diagnosis: Ulcer of toe[ICD9: 707.15] Tessie Motta MD, [facility] CPT- 4: 44611 10/24/2011 ([id number]) 54741 EST. PATIENT, LEVEL IV Diagnosis: EDEMA[ICD9: 782.3] Diagnosis: ESSENTIAL HYPERTENSION[SNOMED: 79266905] Diagnosis: ANXIETY STATE[ICD9: 300.00] Tessie Motta MD, [facility] CPT- 4: 76250 09/26/2011 79406 EST. PATIENT, LEVEL IV Diagnosis: EDEMA[ICD9: 782.3] Diagnosis: ESSENTIAL HYPERTENSION[SNOMED: 60281624] Rika Motta MD, [facility] CPT-4: 09616 09/20/2011 ([id number]) 66877 EST. PATIENT, LEVEL IV Diagnosis: ACUTE SINUSITIS[ICD9: 461.9] Diagnosis: Allergic rhinitis[ICD9: 477.9] Diagnosis: Cough[ICD9: 786.2] Tessie Motta MD, [facility] CPT-4: 44327 09/01/2011 ([id number]) 92009 EST. PATIENT, LEVEL IV Diagnosis: Chronic sinusitis[ICD9: 473.9] Diagnosis: Anxiety, generalized[ICD9: 300.02] Tessie Motta MD, [facility] CPT-4: 71436 08/15/2011 53509 EST. PATIENT, LEVEL IV Diagnosis: ACUTE SINUSITIS[ICD9: 461.9] Diagnosis: Tachycardia[ICD9: 785.0] Diagnosis: Anxiety[ICD9: 300.00] Diagnosis: Dehydration[ICD9: 276.51] Diagnosis: Sciatica[ICD9: 724.3] Tessie Motta MD, [facility] CPT-4: 00036 08/09/2011 56994 EST. PATIENT, LEVEL IV Diagnosis: DIABETES TYPE II[SNOMED: 938857953] Diagnosis: Sciatica[ICD9: 724.3] Diagnosis: Yeast infection[ICD9: 112.9] Tessie Motta MD, [facility] CPT- 4: 20653 08/01/2011 ([id number]) 26881 EST. PATIENT, LEVEL IV Diagnosis: DIABETES TYPE II[SNOMED: 243724777] Diagnosis: ACUTE MAXILLARY SINUSITIS[ICD9: 461.0] Diagnosis: Fibromyalgia[ICD9: 729.1] Tessie Motta MD, [facility] CPT-4: 16816 06/20/2011 97414 EST. PATIENT, LEVEL IV Diagnosis: ESSENTIAL HYPERTENSION[SNOMED: 60810694] Diagnosis: DIABETES TYPE II[SNOMED: 205441036] Diagnosis: ACUTE MAXILLARY SINUSITIS[ICD9: 461.0] Tessie Motta MD, [facility] CPT-4: 10239 04/18/2011 Plan of Care Planned Activity Notes [...] and return Monday for removal of IPRO Pyinjfh-jtskcftyvb-ms changes in medications-recommend counseling-patient refuses Weakness-patient is deconditioned-refuses PT -recommend patient start walking more 04/10/2018 Appointment: Rika Bello WPtel: [address] [place], [place] [phone] (15 min) Moderate 04/10/2018 Patient Education: Patient Medication Summary Completed 04/10/2018 Appointment: Arlette Skelton WPtel: [address] [place], [place] [address] (15 min) Moderate 03/21/2018 Appointment: Rika Bello WPtel: [address] [place], [place] [phone] (30 min) Complex 03/20/2018 Visit Plan: Hypertension [...] as directed 03/12/2018 Appointment: Rika Bello WPtel: [phone] (15 min) Moderate 03/12/2018 Patient Education: Patient Medication Summary Completed 03/12/2018 Patient Education: Back Pain Completed 03/12/2018 Appointment: Rika Bello WPtel: [address] [place], [place] [phone] (30 min) Complex 03/08/2018 Appointment: Lab Draw [...] refill 02/20/2018 Appointment: Rika Bello WPtel: [phone] [phone] [place] (15 min) Moderate 02/20/2018 Patient Education: Patient Medication Summary Completed 02/20/2018 Patient Education: Back Pain Completed 02/20/2018 Patient Education: Patient Medication Summary Completed 02/20/2018 Care Plan: Iron Pending 02/20/2018 Appointment: Rika Bello WPtel: [phone] [phone] [place] (30 min) Complex 02/19/2018 Appointment: Rika Bello WPtel: [phone] [phone] [place] (15 min) Moderate 02/01/2018 Visit Plan: UA negative -no culture indicated 12/14/2017 Appointment: Lab Draw 12/14/2017 Patient Education: Patient Medication Summary Completed 12/14/2017 Visit Plan: Dysuria-urinary incontinence-culture urine HTN- elevated today-monitor at home -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 [employer] 11/27/2017 Appointment: Rika Bello WPtel: [phone] [phone] [place] (15 min) Moderate 11/27/2017 Patient Education: [...] Completed 10/27/2017 Care Plan: SCREENINGMAMMOGRAPHYDIGITAL LOINC : 92585-0 Pending 10/27/2017 Appointment: Ar[facility] Skelton [facility]Ptel[facility] (15 min) Moderate 10/03/2017 Appointment: [phone] (15 min) Moderate 10/02/2017 Appointment: Rika Bello WPtel: [phone] [place] (30 min) Complex 09/29/2017 Visit [...] acutely worsened. 09/27/2017 Appointment: Arlette Skelton WPtel: [facility] (30 min) Complex 09/27/2017 Patient Education: Patient Medication Summary Completed 09/27/2017 Care Plan: CT HEAD/BRAIN W/O DYE LOINC : 58420-6 Pending 09/27/2017 Visit Plan: DM-patient noncompliant with [...] medication. 09/15/2017 Appointment: [phone] [phone] [place] (30 min) Complex 09/15/2017 Patient Education: Patient Medication Summary Completed 09/15/2017 Appointment: [phone] [phone] [place] (30 min) Complex 09/12/2017 Appointment: [phone] [phone] [place] (30 min) Complex 09/07/2017 Visit Plan: Qhr-ywlfmgrvrm-kd changes Anemia-check cbc today Dental infection-on clindamycin per Dr Bryant-start probiotics Also needs to monitor blood sugars closely 08/18/2017 Appointment: [phone] [place] (30 min) Complex 08/18/2017 Patient Education: [...] not resolve 08/03/2017 Appointment: Rika Bello WPtel: [phone] (30 min) [facility] 08/03/2017 Patient Education: Patient Medication Summary Completed [...] worsen 07/27/2017 Appointment: Rika Bello WPtel: [phone] [phone] [place] (30 min) Complex 07/27/2017 Patient Education: [...] medications 06/13/2017 Appointment: Tessie Motta WPtel: [phone] [facility] [place] (15 min) Moderate 06/13/2017 Patient Education: Patient Medication Summary Completed 06/13/2017 Visit Plan: Dental abscess - will send RX - pt is to keep her appointment with her dentist - pt is to notify clinic if symptoms do not improve, if they worsen, or with any other acute changes, questions, or concerns. 04/21/2017 Appointment: Arlette Skelton WPtel: [phone] [phone] [place] (30 min) Complex 04/21/2017 Patient Education: [...] Q HS RESCHEDULE APPT WITH DR ASPEN HoNzizvizbq-kjfauzyov-ug for bactroban ointment provided and instructed on use NLI-dntiakeeyx-rt change in medications Mildly elevated liver enzymes-discussed with Dr motta-suspect due to gabapentin-will monitor levels Gait instability-again recommend patient use walker as well as PT 04/18/2017 Appointment: Rika Bello WPtel: [phone] (30 min) [facility] 04/18/2017 Patient Education: Patient Medication Summary Completed [...] become less controlled. Low potassium- check labs WPF-vfeodnxkbk-kk changes Afib-check digoxin level with labs Abdominal [...] become less controlled. Low potassium- check labs NEQ-okfvjojwwm-vn changes Afib-check digoxin level with labs Abdominal pain-refill levsin for prn use -call if pain uncontrolled 03/27/2017 Appointment: Rika Bello WPtel: [address] [place], [place] [phone] [place] [address] (30 min) Complex 03/27/2017 Patient Education: Patient Medication Summary Completed 03/27/2017 Appointment: Rika Bello WPtel: [phone] [place] [address] (30 min) Complex 03/24/2017 Visit Plan: Hypertension - well controlled - continue with current medications, continue with no added salt diet. Pt has been encouraged to exercise daily. The pt has been advised to call the office if there are any acute concerns about change in blood pressure readings at home. DM-uncontrolled- discussed strict diet and exercise with patient Low gomrlbpqh-sywdcrgo-axlkgmll to monitor Abd egpr-kyuxzpdh-pa changes 02/27/2017 Appointment: Rika Bello WPtel: [address] [place] [address] (30 min) Complex 02/27/2017 Patient Education: Patient [...] not improved on this regimen. 02/21/2017 Appointment: iRka Bello WPtel: [address] [place], [place] [phone] [place] [address] (30 min) Complex 02/21/2017 Patient Education: Patient Medication Summary Completed 02/21/2017 Appointment: Rika Bello WPtel: [address] [place], [place] [phone] (30 min) Complex 02/20/2017 Visit Plan: Generalized [...] labs on Monday02/17/2017 Appointment: Rika Bello WPtel: [phone] (30 min) Complex 02/17/2017 Patient Education: Patient Medication Summary Completed 02/17/2017 Visit Plan: COPD-recent hospitalization with pneumonia- symptoms improved-discussed continuous oxygen use at home-appt with Dr Odonnell tomorrow Afib-check digoxin level-patient just finished zpack Diarrhea-continue probiotics-check stool if diarrhea persists DM-bring log to next appt 02/13/2017 Appointment: Rika Bello WPtel: [address] [place], [place] [phone] (30 min) Complex 02/13/2017 Patient Education: Patient Medication Summary Completed 02/13/2017 Patient Education: Hypertension Completed 02/13/2017 Visit Plan: DM-very uncontrolled-refer to Dr Raines for management RIght shoulder and arm pain-fell 5 days ago-xray shoulder and arm Chronic sinusitis-RX for Dr Cervantes's compound gentamicin nasal spray 01/30/2017 Appointment: Rika Bello WPtel: [address] [place], [place] [phone] (30 min) Complex 01/30/2017 Patient Education: Patient Medication Summary Completed 01/30/2017 Care Plan: Referral Order SNOMED-CT : 602118911 Pending 01/30/2017 Visit Plan: Hypertension - well [...] every night DM-check Hgb A1C Hypothyroidism-check level Psxollz-qxcbeyqqdc-tll well controlled- increase cymbalta-recommend counseling 01/16/2017 Appointment: Rika Bello WPtel: [address] [place], [place] [phone] (30 min) Complex 01/16/2017 Patient Education: Patient Medication Summary Completed 01/16/2017 Appointment: [phone] (30 min) Complex 01/10/2017 Visit Plan: [...] concerns. 12/13/2016 Appointment: [facility]el[facility]el[phone] [facility] (30 min) Complex 12/13/2016 Patient Education: [...] completely heal. 11/11/2016 Appointment: Rika Bello WPtel: [facility] [address] (30 min) Complex 11/11/2016 Patient Education: Patient Medication Summary Completed 11/11/2016 Care Plan: BMI Above normal followup SELF-MGMT EDUC & TRAIN 1 PT Pending 2016 Appointment: Rika Bello WPtel: [address] [place] [address] (30 min) Complex 11/08/2016 Visit Plan: Shingles-rash scabbed-no further treatment indicated-patient to call if pain uncontrolled N/V-check labs including UA DM- check labs today Thrush-RX for nystatin 10/28/2016 Appointment: Rika Bello WPtel: [address] [place], [place] [phone] (30 min) Complex 10/28/2016 Patient Education: Patient Medication Summary Completed 10/28/2016 Patient Education: Obesity Completed 10/28/2016 Appointment: Rika Bello WPtel: [address] [place], [place] [phone] (30 min) Complex 10/25/2016 Appointment: Lab Draw 10/21/2016 Patient Education: Patient Medication Summary Completed 10/21/2016 Visit Plan: Right knee pain-patient to schedule appt with Dr Zafuta Rash-right arm-concerned for shingles-RX for acyclovir provided and instructed on use-call if symptoms do not resolve or if any worse. 10/13/2016 Appointment: Rika Bello WPtel: [address] [place] [address] (30 min) Complex 10/13/2016 Patient Education: Patient Medication Summary Completed 10/13/2016 Appointment: Rika Bello WPtel: [address] [place] [address] (30 min) Complex 10/11/2016 Appointment: Rika Bello WPtel: [address] [place] [address] - Annual Wellness Visit 10/04/2016 Visit Plan: [...] as directed. 09/23/2016 Appointment: Rika Bello WPtel: [address] [place], [place] [phone] (15 min) Moderate 09/23/2016 Patient Education: Patient [...] 09/13/2016 Care Plan: Referral Order SNOMED-CT : 649385118 Pending 09/13/2016 Appointment: Rika Bello WPtel: [facility] [place] [address] (30 min) Complex 09/09/2016 Appointment: Rika Bello WPtel: [address] [place], [place] [phone] [place] [address] (30 min) Complex 09/08/2016 Visit Plan: Hypertension [...] CBC 08/09/2016 Appointment: Rika Bello WPtel: [phone] [place] [address] (30 min) Complex 08/09/2016 Patient Education: Patient [...] control. Yeast infection -rx for nystatin powder [facility]-obooohyyo-jxofmp pneumonia -afib-patient is oxygen dependent due to [...] control. Yeast infection -rx for nystatin powder IJKN-dewspsjju-bzndqo pneumonia -afib-patient is oxygen dependent due to [...] control. Yeast infection -rx for nystatin powder DUJW-yrbdummjq-fbyfag pneumonia -afib-patient is oxygen dependent due to severely compromised pulmonary and cardiac systems-will send orders to [facility] to continue oxygen 07/26/2016 Appointment: [facility]ello [facility]Ptel[phone] [place] (30 min) Complex 07/26/2016 Patient Education: Patient Medication Summary Completed 07/26/2016 Appointment: [facility]ello WPtel: [phone] [place] (30 min) Complex 07/22/2016 Appointment: Rika Bello WPtel: [phone] [place] (30 min) Complex 07/18/2016 Appointment: Rika Bello WPtel: [phone] (30 min) Complex 07/01/2016 Appointment: Lab Draw 06/24/2016 Patient Education: Patient Medication Summary Completed 06/24/2016 Appointment: Rika Bello WPtel: [phone] (30 min) Complex 2016 Visit Plan: [...] Completed 05/24/2016 Appointment: Rika [facility]ello WPtel[phone] (30 min) Complex 05/17/2016 Visit Plan: [...] glucose control. 04/19/2016 Appointment: Rika Bello WPtel: [address] [place] [address] (30 min) Complex 04/19/2016 Patient Education: Patient Medication Summary Completed 04/19/2016 Patient Education: Obesity Completed 04/19/2016 Appointment: Rika Bello WPtel: [address] [place] [address] (30 min) Complex 04/18/2016 Visit Plan: Diabetes [...] to allow for greater blood glucose control. WSE-mvlonotijm-lj changes in medications at this time. Dysuria-UA negative-needs pelvic exam due to pt c/o vaginal discharge 04/11/2016 Appointment: Rika Bello WPtel: [address] [place] [address] (30 min) Complex 04/11/2016 Patient Education: Patient Medication Summary Completed 04/11/2016 Patient Education: Obesity Completed 04/11/2016 Appointment: Rika Bello WPtel: [address] [place], [place] [phone] (30 min) Complex 04/08/2016 Visit Plan: Chronic [...] peripheral edema. 03/11/2016 Appointment: Rika Bello WPtel: [address] [place], [place] [phone] (30 min) Complex 03/11/2016 Patient Education: Patient [...] on use 02/26/2016 Appointment: Rika Bello WPtel: [phone] [facility] [place] [address] (30 min) Complex 02/26/2016 Patient Education: Patient Medication Summary Completed 02/26/2016 Appointment: Rika Bello WPtel: [address] [phone] [place] [address] (30 min) Complex 02/25/2016 Appointment: Rika Bello WPtel: [phone] [phone] (30 min) Complex 02/23/2016 Appointment: Lab Draw [...] mold 02/02/2016 Appointment: Rika Bello WPtel: [phone] [place] (30 min) Complex 02/02/2016 Patient Education: Patient Medication Summary Completed 02/02/2016 Appointment: Tessie Motta WPtel: 1015 [facility] [place] (15 min) Moderate 01/21/2016 Appointment: Rika Bello WPtel: [phone] (30 min) Complex 01/14/2016 Visit Plan: Hypertension [...] Patient Medication Summary Completed 12/17/2015 Visit Plan: Sitsbbm-qzozaccis-gyrb head injury on 12/05-did not go to ER-patient sent for STAT CT scan of head-schedule appt with Dr Dyer Adrenal insufficiency-patient suddenly stopped prednisone-instructed patient to restart and taper prednisone as directed Rib vdxr-jejvd-teiqxv fall-xray ribs 12/08/2015 Appointment: Rika Bello WPtel: [phone] (30 min) Complex 12/08/2015 Appointment: Rika Bello WPtel: [phone] (15 min) Moderate 12/08/2015 Patient Education: Patient Medication Summary Completed 12/08/2015 Care Plan: COMPLETE CBC AUTOMATED LOINC : 08729-4 Pending 12/08/2015 Visit Plan: Hypertension - well [...] pt was given a script for a [place] prednisone taper - pt has not started [...] Mejia 10/27/2015 Appointment: Rika Bello WPtel: [phone] [phone] [place] [address] (30 min) Complex 10/27/2015 Patient Education: Patient Medication Summary Completed 10/27/2015 Patient Education: Obesity Completed 10/27/2015 Care Plan: Referral Order SNOMED-CT : [id number] Pending 10/27/2015 Referral: Matt Pavon HPtel:[phone] [place], [place] [address] Referral Initiated 10/21/2015 Visit Plan: Medicare Exam [...] stomach pain. 09/29/2015 Appointment: Rika Bello WPtel[phone] [facility] - Welcome to Medicare visit 09/29/2015 Patient Education: Patient Medication Summary Completed 09/29/2015 Patient Education: Obesity Completed 09/29/2015 Care Plan: Referral Order SNOMED-CT : [id number] Pending 09/29/2015 Care Plan: BMI Above normal [...] one month for weight check. 08/10/2015 Appointment: [facility] - Welcome to Medicare visit 08/10/2015 Patient [...] min) Complex 05/05/2015 Appointment: Rika Bello WPtel: [address] [place], [place] [phone] (30 min) Complex 04/27/2015 Visit Plan: Cellulitis [...] Completed 03/03/2015 Appointment: Rika Bello WPtel: [phone] [place] (30 min) Complex 02/24/2015 Appointment: (30 min) Complex 01/29/2015 Appointment: Tessie Motta [facility]Ptel: [facility] [place] (15 min) Moderate 01/22/2015 Visit Plan: Blister of right lower leg-fluids removed with #27 gauze needle and compression dressing applied-refer to wound care for evaluation and management-patient is at high risk of developing large ulcer due to diabetes, noncompliance and poor hygiene. Rash right leg-start oral abx and bactroban as directed Edfoh-deufwgjvhufx-vvc markie wraps, elevate leg, and again instructed [...] eating out. 01/01/2015 Appointment: Tessie Motta WPtel: [facility] (15 min) Moderate 01/01/2015 Patient [...] Care Plan: COMPLETE CBC AUTOMATED LOINC : 88622-3 Ordered 11/04/2014 Care Plan: URINALYSIS NONAUTO W/O SCOPE LOINC : 12501-0 Ordered 11/04/2014 Appointment: Follow up 10/07/2014 Visit Plan: Edema - pt has been advised to elevate legs to prevent dependent edema, compression has been recommended to help to naturally decrease peripheral edema. Diuretic use has been discussed and pt has been instructed in appropriate use of such medication as necessary to further attempt to reduce peripheral edema. Sknttmcfvy-tyujrmzs-ke change in treatment- continue compression hose-decrease salt/sodium in diet-call if symptoms worsen or do not resolve Rgmlgeoac-lztexjs-izwbbost nasonex to twice daily as directed 09/08/2014 [...] they worsen. 06/12/2014 Appointment: Rika Bello WPtel: [phone] Follow up 06/12/2014 Patient Education: Patient Medication Summary Completed 06/12/2014 Patient Education: .Amazing charts Exercise for Sciatica Completed 06/12/2014 Care Plan: COMPLETE CBC AUTOMATED LOINC : 67168-7 Ordered 06/12/2014 Visit Plan: Cellulitis - continue [...] Completed 05/26/2014 Appointment: Tessie Motta WPtel: [phone] Lab Draw 04/21/2014 Patient Education: [...] at home. 02/13/2014 Appointment: Tessie Motta WPtel: [facility] Follow up 02/13/2014 Patient Education: [...] units daily. 01/27/2014 Appointment: Tessie Motta WPtel: [facility]5 [facility] Follow up 01/27/2014 Patient Education: Patient Medication Summary Completed 01/27/2014 Appointment: Riak Bello WPtel: [address] [place], [place] [phone] Follow up 01/02/2014 Visit Plan: Open wound of rov-ubqhwbfa-usclogfo with dressing changes as directed-call for increase [...] Education: Patient Medication Summary Completed 12/26/2013 Appointment: Tesise Motta WPtel: [address] [place], [place] [phone] Follow up 12/24/2013 Visit Plan: Open wound of right leg-debrided today in the office-instructed on wound care-follow up as directed. Call with any questions, concerns, or worsening symptoms. Culture of wound today in the office-RX for abx sent to patient's pharmacy and instructed on use. Patient verbalized understanding of plan. 12/12/2013 Appointment: Rika Bello WPtel: [phone] Other 12/12/2013 Patient Education: Patient Medication Summary Completed 12/12/2013 Appointment: Tessie Motta WPtel: [address] [place], [place] [phone] Follow up 11/20/2013 Visit Plan: negative ua 11/18/2013 Appointment: Tessie Motta WPtel: [address] [place], [place] [phone] Lab Draw 11/18/2013 Patient Education: Patient Medication [...] Completed 11/14/2013 Visit Plan: Open wound right ctv-kwzsyl-ubmx if opens up Edema - pt has been advised to elevate legs to prevent dependent edema, compression has been recommended to help to naturally decrease peripheral edema. Diuretic use has been discussed and pt has been instructed in appropriate use of such medication as necessary to further attempt to reduce peripheral edema. 10/21/2013 Appointment: Rika Bello WPtel: [phone] Follow up 10/21/2013 Patient Education: Patient Medication Summary Completed 10/21/2013 Appointment: Rika Bello WPtel: [phone] Follow up 10/17/2013 Appointment: Tessie Motta WPtel: [facility] Follow up 10/10/2013 Visit Plan: [...] pain. 10/03/2013 Appointment: Rika Bello WPtel: [phone] Follow up 10/03/2013 Patient Education: Patient Medication [...] plan. 09/23/2013 Appointment: Tessie Motta WPtel: [phone] Nurse Visit 09/23/2013 Patient Education: [...] 2 WEEKS. 09/20/2013 Appointment: Rika Bello WPtel: [phone] [place] [address] Follow up 09/20/2013 Patient Education: Patient Medication Summary Completed 09/20/2013 Patient Education: Hypertension Completed 09/20/2013 Appointment: Tessie Motta WPtel: [address] [place], [place] [address] Follow up 09/16/2013 Visit Plan: Edema - [...] verbalized understanding. 09/10/2013 Appointment: Rika Bello WPtel: [address] [place], [place] [phone] [place] [address] Other 09/10/2013 Patient Education: Patient Medication Summary Completed 09/10/2013 Appointment: Rika Bello WPtel: [phone] Follow up 09/02/2013 Visit Plan: Diabetes Mellitus [...] edema. 08/19/2013 Appointment: Rika Bello WPtel: [phone] [facility] 08/19/2013 Patient Education: Patient Medication Summary Completed [...] as scheduled 08/01/2013 Appointment: Rika Bello WPtel: [address] [place] [address] Follow up 08/01/2013 Patient Education: Patient Medication Summary Completed 08/01/2013 Appointment: Rika Bello WPtel: [address] [place], [place] [phone] [place] [address] Follow up 07/25/2013 Appointment: [place] WPtel: [address] [place] [address] Follow up 07/25/2013 Visit Plan: Bister of foot-dressing changes discussed with patient and instructed her to keep her foot clean and dry-STOP WEARING FLIP FLOPS as they are causing friction over blistered area. Keep follow up appointment as scheduled. Call for redness, drainage or other s/s of infection. 07/19/2013 Appointment: Rika Bello WPtel: [address] [place] [address] Other 07/19/2013 Patient Education: Patient Medication Summary [...] peripheral edema. 07/15/2013 Appointment: Rika Bello WPtel: [address] [place], [place] [phone] Other 07/15/2013 Patient Education: Patient Medication Summary Completed 07/15/2013 Patient Education: Hypertension Completed 07/15/2013 Appointment: Rika Bello WPtel: [address] [place], [place] [phone] Follow up 07/01/2013 Appointment: Rika Bello WPtel: [phone] [place] Lab Draw 06/28/2013 Patient Education: Patient [...] 900mg tid. 06/27/2013 Appointment: Tessie Motta WPtel: [facility]9 [facility] Other 06/27/2013 Patient Education: Patient Medication Summary Completed 06/27/2013 Appointment: Tessie Motta WPtel: [facility]5 [facility] [place] Other 06/24/2013 Visit Plan: Diabetes Mellitus [...] THE AFTERNOON. 06/10/2013 Appointment: Tessie Motta WPtel: [address] [place] [address] Follow up 06/10/2013 Patient Education: Patient Medication Summary Completed 06/10/2013 Appointment: Tessie Motta WPtel: [address] [place] [address] Follow up 06/06/2013 Visit Plan: Sinusitis - [...] acutely worsen. 05/07/2013 Appointment: Tessie Motta WPtel: [address] [place], [place] [phone] [place] Follow up 05/07/2013 Patient Education: Patient Medication Summary Completed 05/07/2013 Appointment: Tessie Motta WPtel: [address] [place] [address] [place] Follow up 04/30/2013 Visit Plan: Edema [...] acute changes. 04/16/2013 Appointment: Tessie Motta WPtel: [facility]5 [facility] Follow up 04/16/2013 Patient Education: Patient Medication Summary Completed 04/16/2013 Appointment: Tessie Motta WPtel: [facility]5 [facility] Follow up 04/04/2013 Visit Plan: Lumbago-continue [...] peripheral edema. 03/21/2013 Appointment: Rika Bello WPtel: [phone] Follow up 03/21/2013 Patient Education: Patient Medication Summary Completed 03/21/2013 Appointment: Tessie Motta WPtel: [phone] [facility] Follow up 03/20/2013 Appointment: Tessie Motta WPtel: 1015 [facility] Follow up 03/05/2013 Visit Plan: Edema-significantly improved- [...] controlled. 02/12/2013 Appointment: Rika Bello WPtel: [phone] [phone] [facility] follow up 02/12/2013 Patient Education: Patient [...] Dyspnea - recommended pt to see new powerhouse operator when [facility] for further evaluation and work-up. 02/04/2013 Appointment: Tessie Motta WPtel: [facility]5 [facility] Follow up 02/04/2013 Patient Education: Patient [...] not improve. 01/17/2013 Appointment: Rika Bello WPtel: [address] [place], [place] [phone] Follow up 01/17/2013 Patient Education: Patient Medication Summary Completed 01/17/2013 Patient Education: Hypertension Completed 01/17/2013 Appointment: Tessie Motta WPtel: [address] [place] [address] Follow up 01/16/2013 Appointment: Tessie Motta WPtel: [address] [place] [address] Follow up 01/10/2013 Appointment: Rika Bello WPtel: [address] [place], [place] [phone] Lab Draw 01/01/2013 Patient Education: Patient Medication [...] Hypothyroidism-check labs 12/31/2012 Appointment: Rika Bello WPtel: [phone] Follow up 12/31/2012 Appointment: Rika Bello WPtel: [address] [place], [place] [phone] Sick 12/31/2012 Patient Education: Patient Medication Summary [...] Check labs. 12/20/2012 Appointment: Rika Bello WPtel: [address] [place], [place] [phone] [place] [address] 12/20/2012 Patient Education: Patient Medication Summary Completed 12/20/2012 Patient Education: Hypertension Completed 12/20/2012 Appointment: Tessie Motta WPtel: [address] [place] [address] Lab Draw 11/05/2012 Patient Education: Patient Medication Summary Completed 11/05/2012 Visit Plan: Bronchitis - acute case of bronchitis identified. Pt has been given antibiotics, breathing treatments as appropriate, and pt has been instructed to call if symptoms are not improved, or if symptoms acutely worsen. 10/29/2012 Appointment: Tessie Motta WPtel: [address] [place], [place] [phone] Sick 10/29/2012 Patient Education: Patient Medication Summary Completed 10/29/2012 Visit Plan: Joint Injection-left SI joint - Pt was given post - injection instructions. The pt has been advised to use antiinflammatories post injection today, ice to the injected site, call if redness, warmth, or increased pain occurs at the site of injection. 09/21/2012 Appointment: Rika Bello WPtel: [phone] [phone] Follow up 09/21/2012 Patient Education: Patient Medication [...] control. 09/06/2012 Appointment: Tessie Motta WPtel: [facility] Follow up 09/06/2012 Patient Education: [...] readings are starting to become less controlled. Manfpywg-dfivjfpv-vopuvspy probiotic-continue to hold metformin and repeat labs before appt in 2 weeks. Call for abd pain, worsening diarrhea, or other concerns. 08/23/2012 Appointment: Tessie Motta WPtel: [facility] Follow up 08/23/2012 Patient Education: [...] PLAN. 08/13/2012 Appointment: Rika Bello WPtel: [facility]5 [phone] Follow up 08/13/2012 Patient Education: Patient [...] acute concerns. 08/07/2012 Appointment: Rika Bello WPtel: [facility] [address] Other 08/07/2012 Patient Education: Patient Medication Summary Completed 08/07/2012 Patient Education: Hypertension Completed 08/07/2012 Visit Plan: UA-sent for culture 07/19/2012 Appointment: Rika Bello WPtel: [phone] Lab Draw 07/19/2012 Patient Education: Patient Medication [...] as directed 07/06/2012 Appointment: Rika Bello WPtel: [phone] Sick 07/06/2012 Patient Education: Patient Medication Summary [...] today 06/07/2012 Appointment: Tessie Motta WPtel: [facility]5 [facility] Follow up 06/07/2012 Appointment: Tessie Motta WPtel: [facility] Follow up 06/07/2012 Patient Education: [...] 10 days. 05/28/2012 Appointment: Rika Bello WPtel: [phone] Follow up 05/28/2012 Patient Education: Patient [...] edema. 05/17/2012 Appointment: Rika Bello WPtel: 1015 [phone] [place] [address] Follow UP 05/17/2012 Patient Education: Patient Medication [...] office 05/02/2012 Appointment: Tessie Motta WPtel: 1015 [facility] Follow up 05/02/2012 Patient Education: Patient Medication Summary Completed 05/02/2012 Patient Education: Hypertension Completed 05/02/2012 Appointment: Tessie Motta WPtel: 1015 [facility] Follow up 04/25/2012 Visit Plan: Sinusitis [...] acute concerns. 04/10/2012 Appointment: Rika Bello WPtel: [facility] [address] Follow up 04/10/2012 Patient Education: Patient [...] on Monday02/27/2012 Appointment: Rika Bello WPtel: 101[phone] Follow up 02/27/2012 Patient Education: Patient Medication [...] thighs. 02/15/2012 Appointment: Rika Bello WPtel: [phone] Follow up 02/15/2012 Patient Education: Patient [...] toes to thighs. [facility] [...] urine. 02/01/2012 Appointment: Rika Bello WPtel: [phone] Other 02/01/2012 Patient Education: Patient Medication [...] buttocks 12/14/2011 Appointment: Tessie Motta WPtel: 1015 [facility] Other 12/14/2011 Patient Education: Patient Medication Summary Completed 12/14/2011 Appointment: Tessie Motta WPtel: [address] [place] [phone] Follow up 12/08/2011 Visit Plan: N/V/D - [...] controlled. 11/30/2011 Appointment: Rika Bello WPtel: 1015 [phone] Other 11/30/2011 Patient Education: Patient Medication Summary [...] back pain. 11/17/2011 Appointment: Tessie Motta WPtel: [facility] Other 11/17/2011 Patient Education: Patient [...] - uncontrolled - will consult her primary bleacher [employer] for assistance with control her her heart rate. Ulcer of toe - continue with topical antibiotics as previously directed, return to clinic as previously directed, call for acute change in symptoms, worsening redness, warmth, discharge. 11/03/2011 Appointment: Tessie Motta WPtel: 1015 [facility] Other 11/03/2011 Patient Education: Patient Medication [...] discharge. 10/24/2011 Appointment: Tessie Motta WPtel: 1015 [facility] Other 10/24/2011 Patient Education: Patient Medication Summary [...] lymphoma. 09/26/2011 Appointment: Rika Bello WPtel: 1015 [phone] [place] [address] Other 09/26/2011 Patient Education: Patient Medication Summary [...] Hypertension Completed 2011 Appointment: Tessie Motta WPtel: [facility] Other 09/05/2011 Visit Plan: Sinusitis - Pt [...] the medication. 09/01/2011 Appointment: Tessie Motta WPtel: 1013 [facility] Other 09/01/2011 Patient Education: Patient Medication Summary Completed 09/01/2011 Visit Plan: Sinusitis - continue with ciprofloxacin and start on corcidin HBP. Anxiety - start the xanax 0.5mg 1/2 pill twice daily. 08/15/2011 Appointment: Tessie Motta WPtel: [address] [place] [address] Other 08/15/2011 Appointment: Tessie Motta WPtel: [address] [place] [address] Other 08/15/2011 Patient Education: Patient Medication Summary [...] the hospital. 08/09/2011 Appointment: Rika Bello WPtel: [facility]3 [place] [phone] [place] [address] Other 08/09/2011 Patient Education: Patient Medication Summary [...] not resolve 08/01/2011 Appointment: Rika Bello WPtel: [address] [place] [address] [place] Other 08/01/2011 Patient Education: Patient Medication Summary Completed 08/01/2011 Appointment: Rika Bello WPtel: [facility] [place] [address] [place] Other 07/26/2011 Appointment: Tessie Motta WPtel: [facility]3 [address] Other 07/18/2011 Visit Plan: Diabetes Mellitus [...] management sparingly. 06/20/2011 Appointment: Tessie Motta WPtel: [facility]3 [facility] [place] Other 06/20/2011 Patient Education: Patient Medication [...] 1 month. 04/18/2011 Appointment: Tessie Motta WPtel: [address] [place] [address] Other 04/18/2011 Patient Education: Patient Medication Summary Completed 04/18/2011 Patient Education: High Blood Pressure: Essential Hypertension Completed 2010 Appointment: Tessie Motta WPtel: [address] [place] [address] Other 04/12/2011 Appointment: Tessie Motta WPtel: [address] [place] [address] Other 02/16/2011 Referral: Matt Pavon HPtel:[phone] Referral Initiated Referral: Yareli Raines Referral [...] change in blood pressure readings at home. FM-jtuhsbolmjbh-wpuguzbab strict diet and exercise with patient Low rltiynsmk-qnxysafa-gjvtobxy to monitor Abd bmia-wymhgkel-fl changes INCREASE LEVEMIR TO 10 UNITS TWICE [...] further attempt to reduce peripheral edema. . Ubb-svrrjqzcvg-zg changes Anemia-check cbc today Dental infection-on clindamycin [...] MORNING AND 20MG IN THE AFTERNOON. . Bister of foot-dressing changes discussed with [...] new nebulizer and supplies due to mold Labs and UA . Hypertension - well [...] HTN-elevated today-monitor at home -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 [employer] . Hypertension - well controlled - continue [...] symptom management sparingly. . Open wound right rcr-czdzko-oixz if opens up Edema - pt has been advised to elevate legs to prevent dependent edema, compression has been recommended to help to naturally decrease peripheral edema. Diuretic use has been discussed and pt has been instructed in appropriate use of such medication as necessary to further attempt to reduce peripheral edema. WOUND CARE EVALUATION KEEP BLISTER CLEAN AND [...] leg-start oral abx and bactroban as directed Mumqg-pwdxkgpkkbvr-gqy markie wraps, elevate leg, and again instructed [...] change in symptoms, worsening redness, warmth, discharge. Eidrffqg-fitxbbjgqruc-dbyeq labs today-patient has been given orders multiple [...] allow for greater blood glucose control. . Left wrist pain-recent fall-xray left wrist [...] with results.Patient and verbalized understanding of plan. OWA-wlzwuuckvlx-pmozr labs-monitor blood pressure and heart rate closely- recommend ER if symptoms do not improve. RICE - Rest Ice Compression (knee brace) [...] months based on previous levels of control. Holter monitor x 48 hours. You will go to the heart center on August 14 at 1:30pm to have it put on. You appt here Monday is at 3:30pm. 1 liter Normal saline IV today at the hospital. Continue your blood pressure medications for the next week-except HOLD LISINOPRIL/HCTZ [facility] Start [facility] today. . Sinusitis - [...] demerol injection today at the hospital. . Diabetes Mellitus - controlled - per [...] from 600mg tid to 900mg tid. INCREASE WATER INTAKE AND PROTEIN INTAKE CUT [...] to reduce peripheral edema. Dysuria-check UA . UA-sent for culture . Hypertension - [...] readings are starting to become less controlled. Jysiqnxl-hgyzahka-hdwqywjg probiotic-continue to hold metformin and repeat labs before appt in 2 weeks. Call for abd pain, worsening diarrhea, or other concerns. TOUJEO 40 units BID Novolg 10 [...] daily and taper off as directed . Open wound of yme-nixmpqxj-mlilbhbv with dressing changes as directed-call for increase [...] further attempt to reduce peripheral edema. . Tlhmgzg-elqhileau-pvry head injury on 12/05-did not go to ER-patient sent for STAT CT scan of head-schedule appt with Dr Dyer Adrenal insufficiency-patient suddenly stopped prednisone-instructed patient to restart and taper prednisone as directed Rib pkzo-yqigi-ptixpj fall-xray ribs START CHECKING BLOOD SUGARS!!!! BRING [...] change in blood pressure readings at home. Take Levemir 16 units every night . [...] to allow for greater blood glucose control. FPL-szsgiowkze-nm changes in medications at this time. Dysuria-UA [...] - uncontrolled - will consult her primary bleacher [employer] for assistance with control her her heart [...] DM-check labs today Thrush-RX for nystatin . Cellulitis - continue with oral antibiotics [...] diflucan-call if symptoms do not resolve . Sinusitis - Pt has acute infection [...] times Pain uncontrolled-change to percocet as directed. Ong balm over the counter for the knee. [...] to further attempt to reduce peripheral edema. Pbrlmntpfb-spjjjjeo-vt change in treatment-continue compression hose-decrease salt/sodium in diet-call if symptoms worsen or do not resolve Xxjnrbuli-frofkep-qjkounto nasonex to twice daily as directed pt [...] to reduce peripheral edema. Check labs. . UA negative STOP THE PROBIOTICS START [...] symptoms not improved on this regimen. . Patient presented with acute symptoms of stroke. Accompanied to ER for emergent evaluation. INCREASE LANTUS TO 20 UNITS IN THE [...] Q HS RESCHEDULE APPT WITH DR ASPEN HoYrlxigggf-uurkwicox-so for bactroban ointment provided and instructed on use RNV-sseldooskb-pt change in medications Mildly elevated liver enzymes-discussed with Dr motta-suspect due to gabapentin-will monitor levels Gait instability-again recommend patient use walker as well as PT . Sinusitis - continue with ciprofloxacin and start on corcidin HBP. Anxiety - start the xanax 0.5mg 1/2 pill twice daily. . Diabetes Mellitus - Uncontrolled - I [...] with [facility] as scheduled . Open wound of right leg-debrided today in the office- instructed on wound care-follow up as directed. Call with any questions, concerns, or worsening symptoms. Patient verbalized understanding of plan. . negative ua CONTINUE PROBIOTICS CHECK STOOL FOR CDIFF IF [...] Mejia to perform I&D on Monday . ER follow up - Dr. Motta in to see pt - pt was given a script for a [place] [facility] prednisone taper - pt has not started [...] week - will closely monitor pt. . Edema - pt has been advised [...] nystatin powder Hypothyroidism-check labs Anemia-check CBC . Edema-significantly improved- pt has been advised [...] UA Hypothyroidism-check labs . Diabetes Mellitus - Uncontrolled - per [...] control. Yeast infection -rx for nystatin powder ZMVI-foqyzopxq-alhcoh ivlzwsvop-wjfu-gwtlodj is oxygen dependent due to severely compromised [...] control. Yeast infection -rx for nystatin powder NPUX-msarutfov-izgbar kiamelomb-rlha-hhisflu is oxygen dependent due to severely compromised pulmonary and cardiac systems-will send orders to [facility] to continue oxygen . DM-patient noncompliant with [...] the office- follow up in 10 days. Lactobacillus 1 po twice daily. Check labs [...] for Dr Cervantes's compound gentamicin nasal spray Take lasix daily x 5 days Take [...] spray. Kenalog injection today in the office . Edema - pt has been advised [...] a prescription for lasix and potassium to [facility]. Take 2 TABLETS of LASIX and 2 [...] toes to thighs. [facility] [...] control. Yeast infection -rx for nystatin powder WWNZ-xjdvvxnxl-lgmqya kyqjaqbce-brzr-zbqhybw is oxygen dependent due to severely compromised pulmonary and cardiac systems-will send orders to [facility] to continue oxygen . Sinusitis - Pt has acute infection [...] any acute changes, questions or concerns. . Generalized abdominal pain-discussed with Dr Motta-CT [...] Dyspnea - recommended pt to see new powerhouse operator when he gets [facility] for further evaluation and work-up. RETURN MONDAY FOR REMOVAL OF IPRO . [...] and return Monday for removal of IPRO Furuwuq-azsgznynng-qm changes in medications-recommend counseling-patient refuses Weakness-patient is [...] your appt with her -she is a claim specialist . Diabetes Mellitus - ucontrolled- I [...] to become less controlled. Low potassium-check labs RAT-yekgcwibil-ra changes Afib-check digoxin level with labs Abdominal pain-refill levsin for prn use -call if pain uncontrolled DR Yareli Raines-you need to reschedule your appt with her -she is a claim specialist . Diabetes Mellitus - ucontrolled- I [...] to become less controlled. Low potassium-check labs ABO-mbvqrhwsjq-nw changes Afib-check digoxin level with labs Abdominal [...] PAIN MANAGEMENT FOR INJECTIONS STOP BY [facility] [employer] FOR NEW CPAP SUPPLIES . Hypertension - [...] every night DM-check Hgb A1C Hypothyroidism-check level Cnoeylu-kjrthqvbtj-knx well controlled-increase cymbalta-recommend counseling . Diabetes Mellitus [...] she needs to...RESCHEDULE APPT WITH DR RAINES FVZ-ppwssdsfsy-yt change in medications CPAP NEBULIZER CHECK UA [...] tired Tachycardia-follow up with Dr Dyer . Diabetes Mellitus - Uncontrolled - per [...]
--- OUTSIDE RECORDS SUMMARY | 2018-06-04 18:33 | XMS REPORT | CCD ---
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 Unknown Has never used illegal drugs 02/11/2011 Allergies, Adverse Reactions, Alerts Substance Reaction Codes Entered Date Inactivated Date Status CODEINE RxNorm: 2670 02/11/2011 No Inactive Date Active * NO KNOWN FOOD ALLERGIES Unknown 02/01/2012 No Inactive Date Active cefdinir RxNorm: 59091 08/07/2012 No Inactive Date Active PENICILLINS Unknown 02/11/2011 No Inactive Date Active SULFA (SULFONAMIDES) Unknown 02/11/2011 No Inactive Date Active Tetanus Unknown 02/11/2011 No Inactive Date Active Past Medical History Illness Codes Condition Status Onset Date Resolved Date Essential (primary) hypertension ICD-9: 401.1 ICD-10: I10 Active 06/13/2017 Unknown Generalized anxiety disorder ICD-9: 300.02 ICD-10: F41.1 Active 05/23/2016 Unknown Low back pain ICD-9: 724.2 ICD-10: M54.5 Active 09/13/2016 Unknown Type 2 diabetes mellitus with hyperglycemia ICD-9: 250.00 ICD-10: E11.65 Active 05/23/2016 Unknown Anemia, unspecified ICD-9: 285.9 ICD-10: D64.9 [...] disorder ICD-9: 300.02 ICD-10: F41.1 05/23/2016 Active Low back pain ICD-9: 724.2 ICD-10: M54.5 09/13/2016 Active Type 2 diabetes mellitus with hyperglycemia ICD-9: 250.00 ICD-10: E11.65 05/23/2016 Active Anemia, unspecified ICD-9: 285.9 ICD-10: D64.9 [...] Start Date Stop Date Status Fill Instructions colestipol 1 gram tablet RxNorm: 7066200 TAKE ONE TABLET BY MOUTH TWICE DAILY 03/30/2018 No Stop Date Active Tessalon Perles 100 mg capsule RxNorm: 947241 Capsule(s) Capsule(s) 2 Capsule(s) PO TID as needed 03/21/2018 No Stop Date Active nystatin 100,000 unit/mL oral suspension RxNorm: 618455 Unit(s) 5 Milliliter(s) PO QID swish and swallow 03/21/20182017 Inactive Percocet 10 mg-325 mg tablet RxNorm: 1127336 1-2 Tablet(s) PO Q6 PRN 03/12/2018 03/26/2018 Inactive Xanax 0.5 mg tablet RxNorm: 309556 Tablet(s) BID as needed 04/10/2018 Active Slow Fe 47.5 mg iron tablet,extended release RxNorm: 1 Tablet(s) PO every other day 03/12/2018 04/10/2018 Active Slow Fe 47.5 mg iron tablet,extended release RxNorm: 1 Tablet(s) PO 3 x week 02/28/2018 03/11/2018 Inactive promethazine 25 mg tablet RxNorm: 583203 Tablet(s) 1 Tablet(s) PO Q6 PRN TAKE NEEDED ONLY!!! 02/21/2018 No Stop Date Active gabapentin 600 mg tablet RxNorm: 973513 Tablet(s) TAKE ONE & ONE-HALF TABLETS BY MOUTH THREE TIMES DAILY 02/20/20182018 Active Cymbalta 60 mg capsule,delayed release RxNorm: 966208 1 Capsule(s) PO daily take with 30mg tablet 02/20/2018 08/18/2018 Active Vitamin D2 50,000 unit capsule RxNorm: 0028773 1 Capsule(s) PO QW 02/20/2018 04/20/2018 Active Cymbalta 30 mg capsule,delayed release RxNorm: 381946 Capsule(s) TAKE ONE CAPSULE BY MOUTH ONCE DAILY - TAKE WITH THE 60 MG DOSE FOR A TOTAL OF 90 MG 02/20/2018 08/18/2018 Active Vitamin D2 50,000 unit capsule RxNorm: 4540563 1 Capsule(s) PO QW 02/20/2018 02/19/2018 Inactive mupirocin 2 % topical ointment RxNorm: 724892 APPLY TO SORE IN BELLY BUTTON TWICE DAILY 02/15/2018 No Stop Date Active Percocet 10 mg-325 mg tablet RxNorm: 4832191 1-2 Tablet(s) PO Q6 PRN 02/14/2018 02/28/2018 Inactive Jerry Marley U-300 Insulin 300 unit/mL (1.5 mL) subcutaneous pen RxNorm: 1609894 40 Unit(s) SQ BID per dr raines 02/07/2018 03/08/2018 Inactive nystatin 100,000 unit/mL oral suspension RxNorm: 307399 5 Milliliter(s) PO QID swish and swallow 02/02/2018 02/11/2018 Inactive mupirocin 2 % topical ointment RxNorm: 252720 1 Application TOP BID 01/30/2018 02/08/2018 Inactive Tessalon Perles 100 mg capsule RxNorm: 967018 Capsule(s) 2 Capsule(s) PO TID as needed 01/23/2018 03/20/2018 Inactive Xanax 0.5 mg tablet RxNorm: 765801 Tablet(s) TAKE ONE TABLET BY MOUTH THREE TIMES DAILY NEEDED 01/17/20182017 Inactive ropinirole 1 mg tablet RxNorm: 799814 1 Tablet(s) PO BID 201705/10/2018 Active digoxin 125 mcg tablet RxNorm: 139795 1 Tablet(s) PO daily 05/09/2018 Active Percocet 10 mg-325 mg tablet RxNorm: 7578831 1-2 Tablet(s) PO Q6 PRN 01/04/2018 01/18/2018 Inactive Percocet 10 mg-325 mg tablet RxNorm: 5094413 1-2 Tablet(s) PO Q6 PRN 01/02/2018 01/03/2018 Inactive promethazine 25 mg tablet RxNorm: 822497 Tablet(s) 1 Tablet(s) PO Q6 PRN TAKE NEEDED ONLY!!! 01/02/2018 02/20/2018 Inactive pantoprazole 40 mg tablet,delayed release RxNorm: 567653 TAKE 1 TABLET BY MOUTH ONCE DAILY 12/25/2017 No Stop Date Active mupirocin 2 % topical ointment RxNorm: 512093 1 Application TOP BID 12/22/2017 12/31/2017 Inactive fluconazole 150 mg tablet RxNorm: 370418 1 Tablet(s) PO every other day x 3 doses 12/14/2017 12/23/2017 Inactive hyoscyamine 0.125 mg sublingual tablet RxNorm: 3333060 Tablet(s) 1 Tablet(s) SL TID as needed 12/13/2017 04/11/2018 Active Percocet 10 mg-325 mg tablet RxNorm: 8423387 1-2 Tablet(s) PO Q6 PRN 12/13/2017 12/27/2017 Inactive nystatin 100,000 unit/gram topical powder RxNorm: 226021 APPLY POWDER TOPICALLY 4 TIMES DAILY 12/11/2017 No Stop Date Active Xanax 0.5 mg tablet RxNorm: 758224 Tablet(s) TAKE ONE TABLET BY MOUTH THREE TIMES DAILY NEEDED 12/06/20172017 Inactive nitrofurantoin 50 mg capsule RxNorm: 941066 1 Capsule(s) PO BID 12/01/2017 11/30/2017 Inactive take probiotic BID x 7 days nitrofurantoin 50 mg capsule RxNorm: 938595 1 Capsule(s) PO BID 12/01/2017 12/07/2017 Inactive take probiotic BID x 7 days mupirocin 2 % topical ointment RxNorm: 741029 1 Application TOP BID 11/27/2017 12/06/2017 Inactive Tessalon Perles 100 mg capsule RxNorm: 901316 Capsule(s) 2 Capsule(s) PO TID as needed 11/21/2017 01/22/2018 Inactive nystatin 100,000 unit/mL oral suspension RxNorm: 806926 5 Milliliter(s) PO QID swish and swallow 11/17/2017 11/26/2017 Inactive nystatin 100,000 unit/mL oral suspension RxNorm: 543453 5 Milliliter(s) PO QID swish and swallow 11/17/2017 11/16/2017 Inactive Toprol XL 100 mg tablet,extended release RxNorm: 363251 TAKE ONE TABLET BY MOUTH TWICE DAILY 11/15/2017 No Stop Date Active ropinirole 1 mg tablet RxNorm: 044171 Tablet(s) BID 11/14/2017 01/10/2018 Inactive Diflucan 150 mg tablet RxNorm: 246140 Tablet(s) every other day 1 Tablet(s) PO every other day 11/14/2017 11/16/2017 Inactive Percocet 10 mg-325 mg tablet RxNorm: 1265617 1-2 Tablet(s) PO Q6 PRN 11/09/2017 11/23/2017 Inactive Flonase Allergy Relief 50 mcg/actuation nasal spray, suspension RxNorm: 9564788 2 [place] NASAL daily 11/06/20172017 Inactive cyclobenzaprine 10 mg tablet RxNorm: 764098 Tablet(s) TABLET(S) 1 TABLET(S) PO NEEDED TAKE 1 TABLET BY MOUTH EVERY 8 HOURS NEEDED 2017 No Stop Date Active Cymbalta 30 mg capsule,delayed release RxNorm: 383314 TAKE ONE CAPSULE BY MOUTH ONCE DAILY - TAKE WITH THE 60 MG DOSE FOR A TOTAL OF 90 MG 02/19/2018 Inactive Lanjordius Solostar U-100 Insulin 100 unit/mL (3 mL) subcutaneous pen RxNorm: 066080 Unit(s) SQ 35 units QAM and 55 units QHS Unit(s) SQ 10/27/2017 02/07/2018 Inactive Wants insulin pens Percocet 10 mg-325 mg tablet RxNorm: 8334116 1-2 Tablet(s) PO Q6 PRN 10/27/2017 11/08/2017 Inactive promethazine 25 mg tablet RxNorm: 479703 Tablet(s) 1 Tablet(s) PO Q6 PRN TAKE NEEDED ONLY!!! 10/27/2017 01/01/2018 Inactive Xanax 0.5 mg tablet RxNorm: 927278 Tablet(s) TAKE ONE TABLET BY MOUTH THREE TIMES DAILY 10/20/2017 12/16/2017 Inactive Tessalon Perles 100 mg capsule RxNorm: 358179 Capsule(s) 2 Capsule(s) PO TID as needed 10/19/2017 11/20/2017 Inactive Diflucan 150 mg tablet RxNorm: 659890 1 Tablet(s) PO every other day 10/15/2017 11/13/2017 Inactive Percocet 10 mg-325 mg tablet RxNorm: 2298250 1-2 Tablet(s) PO Q6 PRN 10/06/2017 10/20/2017 Inactive pantoprazole 40 mg tablet,delayed release RxNorm: 936422 1 Tablet(s) PO BID 10/03/2017 03/31/2018 Active Cymbalta 60 mg capsule,delayed release RxNorm: 878907 TAKE ONE CAPSULE BY MOUTH ONCE DAILY 09/21/2017 02/19/2018 Inactive Diflucan 150 mg tablet RxNorm: 880406 1 Tablet(s) PO every other day 09/15/2017 09/19/2017 Inactive hyoscyamine 0.125 mg sublingual tablet RxNorm: 5880401 1 Tablet(s) SL TID as needed 09/08/2017 12/12/2017 Inactive Lantus Solostar U-100 Insulin 100 unit/mL (3 mL) subcutaneous pen RxNorm: 566222 Unit(s) SQ 35 units QAM and 55 units QHS Unit(s) SQ 09/06/2017 09/20/2017 Inactive Wants insulin pens Lasix 40 mg tablet RxNorm: 457658 TAKE ONE TABLET BY MOUTH TWICE DAILY 08/25/2017 No Stop Date Active ropinirole 1 mg tablet RxNorm: 247562 TAKE ONE TABLET BY MOUTH AT BEDTIME 08/25/2017 11/13/2017 Inactive Lantus U-100 Insulin 100 unit/mL subcutaneous solution RxNorm: 396222 35 units QAM and 55 units QHS Unit(s) SQ 08/21/2017 09/05/2017 Inactive Tessalon Perles 100 mg capsule RxNorm: 084587 Capsule(s) 2 Capsule(s) PO TID as needed 08/18/2017 10/18/2017 Inactive Percocet 10 mg-325 mg tablet RxNorm: 8172994 1-2 Tablet(s) PO Q6 PRN 08/16/2017 08/30/2017 Inactive pantoprazole 40 mg tablet,delayed release RxNorm: 765465 TAKE ONE TABLET BY MOUTH TWICE DAILY 08/14/2017 08/13/2017 Inactive pantoprazole 40 mg tablet,delayed release RxNorm: 623531 1 Tablet(s) PO daily 08/14/2017 10/02/2017 Inactive promethazine 25 mg tablet RxNorm: 299840 Tablet(s) 1 Tablet(s) PO Q6 PRN TAKE NEEDED ONLY!!! 08/11/2017 10/26/2017 Inactive omeprazole 20 mg capsule,delayed release RxNorm: 347020 1 Capsule(s) PO daily TAKE 1 CAPSULE BY MOUTH ONCE DAILY 08/07/2017 10/26/2017 Inactive nystatin 100,000 unit/mL oral suspension RxNorm: 460334 5 Milliliter(s) PO QID swish and swallow 08/07/2017 08/16/2017 Inactive mupirocin 2 % topical ointment RxNorm: 775007 APPLY TO SORE IN BELLY BUTTON TWICE DAILY 08/07/2017 02/14/2018 Inactive omeprazole 20 mg capsule,delayed release RxNorm: 021635 1 Capsule(s) PO BID TAKE 1 CAPSULE BY MOUTH TWICE DAILY 08/03/2017 08/06/2017 Inactive Diflucan 150 mg tablet RxNorm: 013478 1 Tablet(s) PO daily 08/05/2017 Inactive hyoscyamine 0.125 mg sublingual tablet RxNorm: 0828630 1 Tablet(s) SL TID as needed 08/03/2017 09/01/2017 Inactive gentamicin 0.3 % eye drops RxNorm: 064319 2 Drop(s) ophthalmic (eye) TID 08/03/2017 08/09/2017 Inactive Levaquin 500 mg tablet RxNorm: 546789 1 Tablet(s) PO every other day x3 doses 07/27/2017 08/02/2017 Inactive gentamicin 0.3 % eye drops RxNorm: 497555 2 Drop(s) ophthalmic (eye) TID 07/27/2017 08/02/2017 Inactive dicyclomine 10 mg capsule RxNorm: 226357 1 Capsule(s) PO TID 08/02/2017 Inactive Levaquin 500 mg tablet RxNorm: 373440 1 Tablet(s) PO daily 12/201707/26/2017 Inactive Lantus U-100 Insulin 100 unit/mL subcutaneous solution RxNorm: 896773 INJECT 35 UNITS SUBCUTANEOUSLY IN THE MORNING AND 55 UNITS AT BEDTIME 07/24/2017 09/05/2017 Inactive Tessalon Perles 100 mg capsule RxNorm: 755659 2 Capsule(s) PO TID as needed 07/24/2017 08/17/2017 Inactive Percocet 10 mg-325 mg tablet RxNorm: 0792072 1-2 Tablet(s) PO Q6 PRN 07/21/2017 08/04/2017 Inactive promethazine 25 mg tablet RxNorm: 789170 1 Tablet(s) PO Q6 PRN 1 Tablet(s) PO Q6 PRN 07/19/2017 07/26/2017 Inactive Cartia XT 240 mg capsule,extended release RxNorm: 422098 1 Capsule(s) PO daily 06/27/2017 06/21/2018 Active potassium chloride ER 20 mEq tablet,extended release RxNorm: 171580 Tablet(s) TAKE ONE TABLET BY MOUTH ONCE DAILY 06/21/2017 No Stop Date Active Lantus U-100 Insulin 100 unit/mL subcutaneous solution RxNorm: 923180 35 units QAM and 55 units QHS Unit(s) SQ 06/21/2017 07/20/2017 Inactive Please provide 30 day supply Percocet 10 mg-325 mg tablet RxNorm: 1896257 1-2 Tablet(s) PO Q6 PRN 06/21/2017 07/05/2017 Inactive Cartia XT 180 mg capsule,extended release RxNorm: 949079 Capsule(s) BID 06/21/2017 06/26/2017 Inactive Xanax 0.5 mg tablet RxNorm: 872999 Tablet(s) TAKE ONE TABLET BY MOUTH THREE TIMES DAILY 06/21/2017 08/19/2017 Inactive digoxin 125 mcg tablet RxNorm: 324704 1 Tablet(s) PO daily 10/18/2017 Inactive gabapentin 600 mg tablet RxNorm: 903312 Tablet(s) TAKE ONE & ONE-HALF TABLETS BY MOUTH THREE TIMES DAILY 06/21/20172017 Inactive dicyclomine 10 mg capsule RxNorm: 390309 1 Capsule(s) PO TID 07/26/2017 Inactive Lantus U-100 Insulin 100 unit/mL subcutaneous solution RxNorm: 976632 35 units QAM and 55 units QHS Unit(s) SQ 06/13/2017 06/20/2017 Inactive Please provide 30 day supply potassium chloride ER 20 mEq tablet,extended release RxNorm: 666989 TAKE ONE TABLET BY MOUTH ONCE DAILY 06/02/2017 Inactive cyclobenzaprine 10 mg tablet RxNorm: 761338 Tablet(s) TABLET(S) 1 TABLET(S) PO NEEDED TAKE 1 TABLET BY MOUTH EVERY 8 HOURS NEEDED 201711/02/2017 Inactive Tessalon Perles 100 mg capsule RxNorm: 715612 2 Capsule(s) PO TID as needed 06/01/2017 07/23/2017 Inactive promethazine 25 mg tablet RxNorm: 770006 1 Tablet(s) PO Q6 PRN 1 Tablet(s) PO Q6 PRN 05/25/2017 06/01/2017 Inactive gabapentin 600 mg tablet RxNorm: 852125 TAKE ONE & ONE-HALF TABLETS BY MOUTH THREE TIMES DAILY 05/23/2017 06/20/2017 Inactive promethazine 25 mg tablet RxNorm: 051221 1 Tablet(s) PO Q6 PRN 1 Tablet(s) PO Q6 PRN 05/19/2017 05/24/2017 Inactive Flagyl 500 mg tablet RxNorm: 290122 1 Tablet(s) PO TID 201605/26/2017 Inactive Levaquin 500 mg tablet RxNorm: 406564 1 Tablet(s) PO daily 05/16/2017 Inactive Tessalon Perles 100 mg capsule RxNorm: 672631 2 Capsule(s) PO TID as needed 05/17/2017 05/31/2017 Inactive Flagyl 500 mg tablet RxNorm: 574796 1 Tablet(s) PO TID 201605/16/2017 Inactive hyoscyamine 0.125 mg sublingual tablet RxNorm: 0302790 1 Tablet(s) SL TID as needed 05/17/2017 06/12/2017 Inactive Levaquin 500 mg tablet RxNorm: 961452 1 Tablet(s) PO daily 05/23/2017 Inactive Cymbalta 60 mg capsule,delayed release RxNorm: 256136 1 Capsule(s) PO daily take with 30mg tablet 05/16/2017 08/13/2017 Inactive Bentyl 10 mg capsule RxNorm: 838709 1 Capsule(s) PO TID as needed 05/12/2017 06/10/2017 Inactive Levsin 0.125 mg tablet RxNorm: 0050884 1 Tablet(s) PO Q4 PRN 1-2 Tablet(s) PO Q4 PRN 05/11/2017 05/11/2017 Inactive nystatin 100,000 unit/gram topical powder RxNorm: 846022 Gram(s) APPLY POWDER TOPICALLY 4 TIMES DAILY 05/11/20172017 Inactive nystatin 100,000 unit/mL oral suspension RxNorm: 374671 4 Milliliter(s) PO QID swish and swallow 05/10/2017 05/19/2017 Inactive and Monistat over the counter colestipol 1 gram tablet RxNorm: 8323019 TAKE ONE TABLET BY MOUTH TWICE DAILY 05/08/2017 03/29/2018 Inactive Lantus 100 unit/mL subcutaneous solution RxNorm: 967796 30 units QAM and 50 units QHS Unit(s) SQ 04/28/2017 05/27/2017 Inactive Please provide 30 day supply Lantus Solostar 100 unit/mL (3 mL) subcutaneous insulin pen RxNorm: 651429 Unit( s) SQ BID 04/28/2017 06/13/2017 Inactive 30 units q am and 50units at night Lantus 100 unit/mL subcutaneous solution RxNorm: 314199 30 units QAM and 50 units QHS Unit(s) SQ 04/28/2017 04/27/2017 Inactive Please provide 30 day supply Levsin 0.125 mg tablet RxNorm: 4472179 1 Tablet(s) PO Q4 PRN 1-2 Tablet(s) PO Q4 PRN 04/25/2017 05/10/2017 Inactive promethazine 25 mg tablet RxNorm: 927084 1 Tablet(s) PO Q6 PRN 1 Tablet(s) PO Q6 PRN 04/25/2017 05/02/2017 Inactive Toprol XL 100 mg tablet,extended release RxNorm: 246279 TAKE ONE TABLET BY MOUTH TWICE DAILY 04/24/2017 11/14/2017 Inactive Flagyl 500 mg tablet RxNorm: 272580 1 Tablet(s) PO TID 201604/30/2017 Inactive Levaquin 500 mg tablet RxNorm: 936312 1 Tablet(s) PO daily 05/201604/27/2017 Inactive Voltaren 1 % topical gel RxNorm: 252710 4 Gram(s) TOP QID 04/1810/14/2017 Inactive mupirocin 2 % topical ointment RxNorm: 078469 1 Application TOP BID 04/18/2017 04/27/2017 Inactive apply to sore in belly button Lantus Solostar 100 unit/mL (3 mL) subcutaneous insulin pen RxNorm: 749064 Unit( s) SQ BID 04/18/2017 04/27/2017 Inactive 20 units q am and 50units at night levothyroxine 88 mcg tablet RxNorm: 684083 1 Tablet(s) PO daily TAKE ONE TABLET BY MOUTH ONCE DAILY 04/06/2017 04/17/2017 Inactive Xanax 0.5 mg tablet RxNorm: 088029 Tablet(s) TAKE ONE TABLET BY MOUTH THREE TIMES DAILY 04/04/2017 06/02/2017 Inactive Percocet 10 mg-325 mg tablet RxNorm: 2961154 1-2 Tablet(s) PO Q6 PRN 04/04/2017 04/18/2017 Inactive cyclobenzaprine 10 mg tablet RxNorm: 382758 TAKE ONE TABLET BY MOUTH EVERY 8 HOURS NEEDED 04/03/2017 06/01/2017 Inactive potassium chloride ER 20 mEq tablet,extended release RxNorm: 676381 1 Tablet(s) PO daily 03/28/2017 06/01/2017 Inactive nystatin 100,000 unit/gram topical cream RxNorm: 119391 1 Application TOP BID 03/27/2017 04/09/2017 Inactive Levsin 0.125 mg tablet RxNorm: 8133303 1 Tablet(s) PO Q4 PRN 1-2 Tablet(s) PO Q4 PRN 03/27/2017 04/24/2017 Inactive promethazine 25 mg tablet RxNorm: 468647 1 Tablet(s) PO Q6 PRN 03/23/2017 03/29/2017 Inactive nystatin 100,000 unit/gram topical powder RxNorm: 448212 APPLY POWDER TOPICALLY 4 TIMES DAILY 03/17/2017 05/10/2017 Inactive Percocet 10 mg-325 mg tablet RxNorm: 1272151 1-2 Tablet(s) PO Q6 PRN 03/09/2017 03/23/2017 Inactive Levsin 0.125 mg tablet RxNorm: 4002614 1-2 Tablet(s) PO Q4 PRN 03/06/2017 03/26/2017 Inactive promethazine 25 mg tablet RxNorm: 656307 1 Tablet(s) PO Q6 PRN 03/06/2017 03/13/2017 Inactive potassium chloride ER 20 mEq tablet,extended release RxNorm: 718409 1 Tablet(s) PO BID 02/23/2017 03/09/2017 Inactive Levsin/SL 0.125 mg sublingual tablet RxNorm: 9763028 1-2 Tablet(s) SL Q4 PRN 02/17/2017 03/26/2017 Inactive potassium chloride ER 20 mEq tablet,extended release RxNorm: 396973 1 Tablet(s) PO BID 02/17/2017 02/21/2017 Inactive magnesium oxide 400 mg tablet RxNorm: 469571 1 Tablet(s) PO daily 02/17/2017 02/21/2017 Inactive then twice weekly thereafter Levsin 0.125 mg tablet RxNorm: 6738620 1-2 Tablet(s) PO Q4 PRN 02/17/2017 02/16/2017 Inactive promethazine 25 mg tablet RxNorm: 200610 1 Tablet(s) PO Q6 PRN 02/10/2017 03/05/2017 Inactive Percocet 10 mg-325 mg tablet RxNorm: 0630744 1-2 Tablet(s) PO Q6 PRN 02/09/2017 02/23/2017 Inactive Cymbalta 60 mg capsule,delayed release RxNorm: 011663 1 Capsule(s) PO daily take with 30mg tablet 02/06/2017 05/06/2017 Inactive Cymbalta 30 mg capsule,delayed release RxNorm: 307186 1 Capsule(s) PO daily take with 60mg tablet 02/06/2017 02/19/2018 Inactive take with 60mg=90mg Vitamin D2 50,000 unit capsule RxNorm: 330761 1 Capsule(s) PO daily 01/17/2017 01/16/2017 Inactive daily x 6 mths Tresiba FlexTouch U-100 100 unit/mL (3 mL) subcutaneous insulin pen RxNorm: 6647158 40 Unit(s) SQ daily 01/17/20172016 Inactive Tresiba FlexTouch U-100 100 unit/mL (3 mL) subcutaneous insulin pen RxNorm: 8446751 40 Unit(s) SQ daily 01/17/20172016 Inactive Vitamin D2 50,000 unit capsule RxNorm: 766325 1 Capsule(s) PO daily 01/17/2017 10/26/2017 Inactive daily x 6 mths Cymbalta 30 mg capsule,delayed release RxNorm: 462854 1 Capsule(s) PO daily 01/16/2017 02/05/2017 Inactive take with 60mg=90mg Percocet 10 mg-325 mg tablet RxNorm: 1749468 1-2 Tablet(s) PO Q6 PRN 01/13/2017 01/27/2017 Inactive gabapentin 600 mg tablet RxNorm: 331426 TAKE ONE & ONE-HALF TABLETS BY MOUTH THREE TIMES DAILY 01/10/2017 05/09/2017 Inactive Percocet 10 mg-325 mg tablet RxNorm: 8139797 1-2 Tablet(s) PO Q6 PRN 12/21/2016 01/04/2017 Inactive Xanax 0.5 mg tablet RxNorm: 328188 Tablet(s) TAKE ONE TABLET BY MOUTH THREE TIMES DAILY 12/20/2016 02/15/2017 Inactive promethazine 25 mg tablet RxNorm: 987719 1 Tablet(s) PO Q6 PRN 12/16/2016 12/18/2016 Inactive prednisone 20 mg tablet RxNorm: 959452 2 Tablet(s) PO daily 12/14/2016 Inactive prednisone 20 mg tablet RxNorm: 038520 2 Tablet(s) PO daily 03/26/2017 Inactive Eliquis 5 mg tablet RxNorm: 8915545 1 Tablet(s) PO BID 201601/11/2017 Inactive doxycycline monohydrate 100 mg tablet RxNorm: 119413 1 Tablet(s) PO BID 12/13/2016 03/26/2017 Inactive give doxycyline hyclate cyclobenzaprine 10 mg tablet RxNorm: 201291 TAKE ONE TABLET BY MOUTH EVERY 8 HOURS NEEDED 12/09/2016 12/28/2016 Inactive Cymbalta 60 mg capsule,delayed release RxNorm: 797492 TAKE ONE CAPSULE BY MOUTH ONCE DAILY 11/30/2016 02/05/2017 Inactive promethazine 25 mg tablet RxNorm: 892729 2 Tablet(s) PO Q6 PRN 11/29/2016 12/16/2016 Inactive Percocet 10 mg-325 mg tablet RxNorm: 7567254 1-2 Tablet(s) PO Q6 PRN 11/24/2016 12/08/2016 Inactive mupirocin 2 % topical ointment RxNorm: 803891 1 Application TOP BID 11/11/2016 11/24/2016 Inactive Xanax 0.5 mg tablet RxNorm: 824096 Tablet(s) TAKE ONE TABLET BY MOUTH THREE TIMES DAILY 11/11/2016 12/19/2016 Inactive Belviq 10 mg tablet RxNorm: 0051721 1 Tablet(s) PO BID 201612/10/2016 Inactive Toprol XL 100 mg tablet,extended release RxNorm: 260068 TAKE ONE TABLET BY MOUTH TWICE DAILY 11/04/2016 04/02/2017 Inactive albuterol sulfate concentrate 2.5 mg/0.5 mL solution for nebulization RxNorm: 795910 USE ONE VIAL IN NEBULIZER EVERY 4 TO 6 HOURS NEEDED 11/03/2016 11/12/2016 Inactive Percocet 10 mg-325 mg tablet RxNorm: 3610682 1-2 Tablet(s) PO Q6 PRN 10/31/2016 11/23/2016 Inactive promethazine 25 mg tablet RxNorm: 406888 2 Tablet(s) PO Q6 PRN 10/28/2016 11/28/2016 Inactive nystatin 100,000 unit/mL oral suspension RxNorm: 302845 5 Milliliter(s) PO QID 10/28/2016 11/06/2016 Inactive Levemir FlexTouch 100 unit/mL (3 mL) subcutaneous insulin pen RxNorm: 983605 45 Unit(s) SQ BID 10/28/2016 01/16/2017 Inactive 45 q am and 40 q anita cyclobenzaprine 10 mg tablet RxNorm: 151447 TAKE ONE TABLET BY MOUTH EVERY 8 HOURS NEEDED 10/21/2016 11/09/2016 Inactive Lasix 40 mg tablet RxNorm: 653338 TAKE ONE TABLET BY MOUTH TWICE DAILY 10/18/2016 04/15/2017 Inactive Percocet 10 mg-325 mg tablet RxNorm: 6886509 1-2 Tablet(s) PO Q6 PRN 10/18/2016 10/30/2016 Inactive acyclovir 400 mg tablet RxNorm: 960923 2 Tablet(s) PO QID 10/1310/22/2016 Inactive Lasix 40 mg tablet RxNorm: 140580 TAKE ONE TABLET BY MOUTH TWICE DAILY 10/10/2016 10/17/2016 Inactive ropinirole 1 mg tablet RxNorm: 205687 TAKE ONE TABLET BY MOUTH AT BEDTIME 10/10/2016 04/07/2017 Inactive nystatin 100,000 unit/mL oral suspension RxNorm: 107451 5 Milliliter(s) PO QID x 10 days 09/30/2016 10/09/2016 Inactive nystatin 100,000 unit/mL oral suspension RxNorm: 675711 5 Milliliter(s) PO QID x 10 days 09/30/2016 10/09/2016 Inactive Swish et swallow Flonase Allergy Relief 50 mcg/actuation nasal spray, suspension RxNorm: 1797971 2 [place] NASAL daily 09/23/20162016 Inactive Percocet 10 mg-325 mg tablet RxNorm: 5672926 1-2 Tablet(s) PO Q6 PRN 09/23/2016 10/17/2016 Inactive doxycycline monohydrate 100 mg tablet RxNorm: 683115 1 Tablet(s) PO BID 09/23/2016 10/02/2016 Inactive give doxycyline hyclate Levemir FlexTouch 100 unit/mL (3 mL) subcutaneous insulin pen RxNorm: 713544 40 Unit(s) SQ BID 09/15/2016 10/27/2016 Inactive nystatin 100,000 unit/gram topical powder RxNorm: 633271 1 Application TOP QID 09/13/2016 09/22/2016 Inactive Voltaren 1 % topical gel RxNorm: 822105 4 Gram(s) TOP QID 09/1303/11/2017 Inactive Anusol-HC 25 mg rectal suppository RxNorm: 5115437 1 Suppository RTL HS 09/13/2016 09/26/2016 Inactive hydrocodone 10 mg-acetaminophen 325 mg tablet RxNorm: 122427 1-2 Tablet(s) PO Q6 as needed 09/13/2016 09/22/2016 Inactive Linzess 145 mcg capsule RxNorm: 2870189 1 Capsule(s) PO daily 09/01/2016 10/26/2017 Inactive Linzess 145 mcg capsule RxNorm: 8953318 1 Capsule(s) PO daily 09/01/2016 08/31/2016 Inactive Zofran 4 mg tablet RxNorm: 534565 TAKE ONE TABLET BY MOUTH EVERY 4 TO 6 HOURS NEEDED 08/29/2016 08/02/2017 Inactive Voltaren 1 % topical gel RxNorm: 313905 4 Gram(s) TOP QID 08/2309/12/2016 Inactive levothyroxine 88 mcg tablet RxNorm: 826245 TAKE ONE TABLET BY MOUTH ONCE DAILY 08/19/2016 12/16/2016 Inactive hydrocodone 10 mg-acetaminophen 325 mg tablet RxNorm: 230568 1 Tablet(s) PO Q6 as needed 08/17/2016 09/12/2016 Inactive nystatin 100,000 unit/gram topical powder RxNorm: 821003 1 Application TOP QID 08/16/2016 08/25/2016 Inactive Cymbalta 60 mg capsule,delayed release RxNorm: 951464 TAKE ONE CAPSULE BY MOUTH ONCE DAILY 08/10/2016 11/29/2016 Inactive Voltaren 1 % topical gel RxNorm: 714627 4 Gram(s) TOP QID 08/1008/22/2016 Inactive Voltaren 1 % topical gel RxNorm: 932914 4 Gram(s) TOP QID 08/1008/09/2016 Inactive promethazine 25 mg tablet RxNorm: 112368 TAKE ONE TABLET BY MOUTH EVERY 8 HOURS NEEDED FOR NAUSEA 07/29/20162017 Inactive nystatin 100,000 unit/gram topical powder RxNorm: 067277 1 Application TOP QID 07/26/2016 08/04/2016 Inactive Levemir FlexTouch U-100 Insulin 100 unit/mL (3 mL) subcutaneous pen RxNorm: 897748 35 Unit(s) SQ BID 07/26/201609/2016 Inactive 35 q am and 30 q pm cyclobenzaprine 10 mg tablet RxNorm: 465829 TAKE ONE TABLET BY MOUTH EVERY 8 HOURS NEEDED 07/14/2016 08/22/2016 Inactive hydrocodone 10 mg-acetaminophen 325 mg tablet RxNorm: 751240 1 Tablet(s) PO Q6 as needed 07/11/2016 08/16/2016 Inactive nystatin 100,000 unit/mL oral suspension RxNorm: 338713 5 Milliliter(s) PO QID x 10 days 07/05/2016 07/04/2016 Inactive nystatin 100,000 unit/mL oral suspension RxNorm: 895913 5 Milliliter(s) PO QID x 10 days 07/05/2016 07/04/2016 Inactive nystatin 100,000 unit/mL oral suspension RxNorm: 801241 5 Milliliter(s) PO QID x 10 days 07/05/2016 07/14/2016 Inactive Swish et swallow doxycycline monohydrate 100 mg tablet RxNorm: 852126 1 Tablet(s) PO BID 06/24/2016 07/03/2016 Inactive give doxycyline hyclate promethazine 25 mg tablet RxNorm: 124130 TAKE ONE TABLET BY MOUTH EVERY 8 HOURS NEEDED FOR NAUSEA 06/01/20162016 Inactive pantoprazole 40 mg tablet,delayed release RxNorm: 094496 1 Tablet(s) PO BID 05/25/2016 08/02/2017 Inactive Zofran 4 mg tablet RxNorm: 547849 1 Tablet(s) PO Q12 PRN TAKE 1 TABLET BY MOUTH EVERY 4 TO 6 HOURS NEEDED 05/24/2016 Inactive hydrocodone 10 mg-acetaminophen 325 mg tablet RxNorm: 054030 1 Tablet(s) PO Q6 as needed 05/24/2016 07/10/2016 Inactive Levemir FlexTouch 100 unit/mL (3 mL) subcutaneous insulin pen RxNorm: 691939 25 Unit(s) SQ BID 05/24/2016 06/22/2016 Inactive Xanax 0.5 mg tablet RxNorm: 410745 Tablet(s) TAKE ONE TABLET BY MOUTH THREE TIMES DAILY 05/11/2016 07/09/2016 Inactive BD Insulin Pen Needle UF Short 31 gauge x 5/16" RxNorm: [facility] 05/06/2016 05/05/2016 Inactive BD Insulin Pen Needle UF Short 31 gauge x 5/16" RxNorm: [facility] 05/06/2016 06/04/2016 Inactive colestipol 1 gram tablet RxNorm: 8577395 Tablet(s) TAKE 1 TABLET BY MOUTH TWICE DAILY 04/22/2016 04/16/2017 Inactive Levemir FlexTouch 100 unit/mL (3 mL) subcutaneous insulin pen RxNorm: 276253 20 Unit(s) SQ BID 04/19/2016 05/18/2016 Inactive 25 UNITS Q AM AND 20 UNITS Q HS Cartia XT 180 mg capsule,extended release RxNorm: 102608 Capsule(s) BID 04/11/2016 04/05/2017 Inactive hydrocodone 10 mg-acetaminophen 325 mg tablet RxNorm: 149411 1 Tablet(s) PO Q6 as needed 04/11/2016 05/23/2016 Inactive Levemir FlexTouch 100 unit/mL (3 mL) subcutaneous insulin pen RxNorm: 500425 20 Unit(s) SQ BID 04/11/2016 04/18/2016 Inactive 20 UNITS Q AM AND 15 UNITS Q HS X 1 WEEK THEN 20 UNITS BID levothyroxine 88 mcg tablet RxNorm: 319605 1 Tablet(s) PO daily 03/21/2016 07/18/2016 Inactive Cymbalta 60 mg capsule,delayed release RxNorm: 191308 1 Capsule(s) PO daily 03/21/2016 07/18/2016 Inactive diltiazem ER (XR/XT) 240 mg capsule,extended release, controlled RxNorm: 751268 1 Capsule(s) PO BID 03/18/20162017 Inactive doxycycline hyclate 100 mg tablet RxNorm: 831329 1 Tablet(s) PO BID 03/11/2016 03/17/2016 Inactive Levemir FlexTouch 100 unit/mL (3 mL) subcutaneous insulin pen RxNorm: 633327 10 Unit(s) SQ BID 03/11/2016 04/09/2016 Inactive Lasix 40 mg tablet RxNorm: 876784 1 Tablet(s) PO BID 201509/06/2016 Inactive gabapentin 600 mg tablet RxNorm: 763345 Tablet(s) 1.5 TABLET(S) PO TID 03/04/2016 08/30/2016 Inactive Toujeo SoloStar 300 unit/mL (1.5 mL) subcutaneous insulin pen RxNorm: 2463486 10 Unit(s) SQ QHS 02/26/2016 03/26/2016 Inactive polymyxin B sulfate 10,000 unit-trimethoprim 1 mg/mL eye drops RxNorm: 633562 2 Drop(s) OPH TID 02/26/2016 03/03/2016 Inactive Lasix 20 mg tablet RxNorm: 220233 2 Tablet(s) PO BID TAKE 2 TABLETS BY MOUTH EVERY MORNING AND 2 TABLET BY MOUTH AT 3 PM 02/26/2016 03/10/2016 Inactive cyclobenzaprine 10 mg tablet RxNorm: 083887 Tablet(s) TABLET(S) TABLET(S) 1 TABLET (S) PO NEEDED TAKE 1 TABLET BY MOUTH EVERY 8 HOURS NEEDED 02/26/2016 07/13/2016 Inactive early fill- pt lost med Levemir FlexTouch 100 unit/mL (3 mL) subcutaneous insulin pen RxNorm: 735786 16 Unit(s) SQ QHS 02/18/2016 02/17/2016 Inactive Levemir FlexTouch 100 unit/mL (3 mL) subcutaneous insulin pen RxNorm: 187173 16 Unit(s) SQ QHS 02/18/2016 02/25/2016 Inactive Levemir 100 unit/mL subcutaneous solution RxNorm: 330265 16 Unit(s) SQ QHS 02/15/2016 02/17/2016 Inactive disp needles as well Effexor XR 37.5 mg capsule,extended release RxNorm: 582189 1 Capsule(s) QPM CAPSULE(S) PO TAKE 2 CAPSULES BY MOUTH EVERY MORNING AND 1 CAPSULE BY MOUTH EVERY NIGHT AT BEDTIME 02/15/20162015 Inactive clotrimazole 100 mg vaginal tablet RxNorm: 409164 1 Tablet(s) VAG QHS 02/05/2016 02/11/2016 Inactive clotrimazole 100 mg vaginal tablet RxNorm: 622692 1 Tablet(s) VAG QHS 02/05/2016 02/04/2016 Inactive hydrocodone 10 mg-acetaminophen 325 mg tablet RxNorm: 828831 1 Tablet(s) PO Q6 as needed 02/05/2016 04/10/2016 Inactive flecainide 100 mg tablet RxNorm: 961603 1 Tablet(s) PO BID No Stop Date Active potassium chloride ER 10 mEq tablet,extended release RxNorm: 482420 1 Tablet(s) PO daily 1 TABLET(S) PO QDAY PRN TAKE WITH LASIX 02/02/2016 01/26/2017 Inactive Brovana 15 mcg/2 mL solution for nebulization RxNorm: 490257 2 Milliliter(s) INH BID PRN 02/02/2016 03/20/2016 Inactive promethazine 25 mg tablet RxNorm: 828916 1 Tablet(s) PO Q8 as needed nausea 01/27/2016 03/20/2016 Inactive promethazine 25 mg tablet RxNorm: 967954 1 Tablet(s) PO Q6 PRN 01/27/2016 02/03/2016 Inactive nystatin 100,000 unit/mL oral suspension RxNorm: 815989 5 Unit(s) PO QID 01/12/2016 01/21/2016 Inactive promethazine 25 mg tablet RxNorm: 737033 1 Tablet(s) PO Q6 PRN 12/30/2015 01/06/2016 Inactive hydrocodone 7.5 mg-acetaminophen 325 mg tablet RxNorm: 723977 1 Tablet(s) PO q 6 hours prn for pain 12/10/2015 01/06/2016 Inactive Xanax 0.5 mg tablet RxNorm: 314967 TAKE ONE TABLET BY MOUTH THREE TIMES DAILY 12/02/2015 12/31/2015 Inactive Xanax 0.5 mg tablet RxNorm: 318319 Tablet(s) TAKE 1 TABLET BY MOUTH THREE TIMES DAILY 12/02/2015 11/30/2015 Inactive Anusol-HC 25 mg rectal suppository RxNorm: 8507059 1 Suppository RTL HS 11/27/2015 09/12/2016 Inactive ropinirole 1 mg tablet RxNorm: 949789 1 Tablet(s) PO QHS 201505/24/2016 Inactive nystatin 100,000 unit/mL oral suspension RxNorm: 619797 5 Unit(s) PO QID 11/20/2015 11/29/2015 Inactive albuterol sulfate concentrate 2.5 mg/0.5 mL solution for nebulization RxNorm: 564326 3 Milliliter(s) INH Q4-6H as needed 11/10/2015 11/02/2016 Inactive doxycycline monohydrate 100 mg tablet RxNorm: 804072 1 Tablet(s) PO BID 11/10/2015 11/19/2015 Inactive give doxycyline hyclate promethazine 25 mg tablet RxNorm: 851754 1 Tablet(s) PO Q6 PRN 11/05/2015 11/12/2015 Inactive Bactroban 2 % topical ointment RxNorm: 119504 1 APPLICATION TOP BID 10/27/2015 10/26/2017 Inactive Belviq 10 mg tablet RxNorm: 0318211 1 Tablet(s) PO BID 201511/25/2015 Inactive hydrocodone 7.5 mg-acetaminophen 325 mg tablet RxNorm: 925398 1 Tablet(s) PO q 6 hours prn for pain 10/20/2015 11/18/2015 Inactive Toprol XL 100 mg tablet,extended release RxNorm: 269270 Tablet(s) TAKE 1 TABLET BY MOUTH TWICE DAILY 10/16/20152016 Inactive Diflucan 150 mg tablet RxNorm: 936222 1 Tablet(s) PO every other day 10/14/2015 10/23/2015 Inactive Xanax 0.5 mg tablet RxNorm: 098936 Tablet(s) TAKE 1 TABLET BY MOUTH THREE TIMES DAILY 10/14/2015 05/10/2016 Inactive Toprol XL 100 mg tablet,extended release RxNorm: 093056 Tablet(s) TAKE 1 TABLET BY MOUTH TWICE DAILY 10/13/20152015 Inactive cyclobenzaprine 10 mg tablet RxNorm: 270872 Tablet(s) TABLET(S) TABLET(S) 1 TABLET (S) PO NEEDED TAKE 1 TABLET BY MOUTH EVERY 8 HOURS NEEDED 10/02/2015 10/14/2015 Inactive Zofran 4 mg tablet RxNorm: 475542 Tablet(s) 1 TABLET(S) PRN TAKE 1 TABLET BY MOUTH EVERY 4 TO 6 HOURS NEEDED 09/29/2015 12/27/2015 Inactive Synthroid 88 mcg tablet RxNorm: 150704 1 Tablet(s) PO daily 1 TABLET(S) PO DAILY 09/29/2015 10/28/2015 Inactive Patient requests 90 days supply promethazine 25 mg tablet RxNorm: 363361 1 Tablet(s) PO Q6 PRN 09/29/2015 11/04/2015 Inactive Lasix 20 mg tablet RxNorm: 717921 2 Tablet(s) PO BID 201501/18/2016 Inactive promethazine 25 mg tablet RxNorm: 275346 1 Tablet(s) PO Q6 PRN 09/22/2015 09/28/2015 Inactive hydrocodone 7.5 mg-acetaminophen 325 mg tablet RxNorm: 734183 1 Tablet(s) PO q 6 hours prn for pain 09/17/2015 10/16/2015 Inactive WelChol 625 mg tablet RxNorm: 912800 3 Tablet(s) PO BID 201503/26/2017 Inactive promethazine 25 mg tablet RxNorm: 308834 1 Tablet(s) PO Q8 as needed 09/07/2015 10/26/2017 Inactive Levemir 100 unit/mL subcutaneous solution RxNorm: 730538 16 Unit(s) SQ QHS 09/01/2015 02/14/2016 Inactive pantoprazole 40 mg tablet,delayed release RxNorm: 558796 1 Tablet(s) PO daily 09/01/2015 05/24/2016 Inactive Effexor XR 37.5 mg capsule,extended release RxNorm: 260818 Capsule(s) CAPSULE(S) PO TAKE 2 CAPSULES BY MOUTH EVERY MORNING AND 1 CAPSULE BY MOUTH EVERY NIGHT AT BEDTIME 08/27/2015 02/14/2016 Inactive promethazine 25 mg tablet RxNorm: 797935 1 Tablet(s) PO Q8 as needed 08/13/2015 09/06/2015 Inactive gabapentin 600 mg tablet RxNorm: 963750 Tablet(s) 1.5 TABLET(S) PO TID 08/13/2015 02/08/2016 Inactive hydrocodone 7.5 mg-acetaminophen 325 mg tablet RxNorm: 956863 1 Tablet(s) PO q 6 hours prn for pain 08/10/2015 09/08/2015 Inactive Zofran 4 mg tablet RxNorm: 326313 Tablet(s) 1 TABLET(S) PRN TAKE 1 TABLET BY MOUTH EVERY 4 TO 6 HOURS NEEDED 08/04/2015 08/03/2015 Inactive Zofran 4 mg tablet RxNorm: 143505 Tablet(s) 1 TABLET(S) PRN TAKE 1 TABLET BY MOUTH EVERY 4 TO 6 HOURS NEEDED 08/04/2015 09/28/2015 Inactive doxycycline monohydrate 100 mg tablet RxNorm: 937065 1 Tablet(s) PO BID 08/04/2015 08/10/2015 Inactive give doxycyline hyclate Diflucan 150 mg tablet RxNorm: 161097 1 Tablet(s) PO every other day 07/31/2015 08/09/2015 Inactive nystatin 100,000 unit/mL oral suspension RxNorm: 982743 5 Milliliter(s) PO QID 07/31/2015 07/30/2015 Inactive Diflucan 150 mg tablet RxNorm: 555449 1 Tablet(s) PO every other day 07/31/2015 07/30/2015 Inactive nystatin 100,000 unit/mL oral suspension RxNorm: 244916 5 Milliliter(s) PO QID 07/31/2015 08/09/2015 Inactive Ceftin 500 mg tablet RxNorm: 972479 1 Tablet(s) PO BID 201507/23/2015 Inactive Ceftin 500 mg tablet RxNorm: 454675 1 Tablet(s) PO BID Pre-medicate with benadryl 50 mg, pepcid 20 mg, and nathanael before each dose 07/24/2015 07/30/2015 Inactive cyclobenzaprine 10 mg tablet RxNorm: 040089 TABLET(S) TABLET(S) 1 TABLET(S) PO NEEDED TAKE 1 TABLET BY MOUTH EVERY 8 HOURS NEEDED 201502/25/2016 Inactive early fill- pt lost med Synthroid 88 mcg tablet RxNorm: 422586 1 TABLET(S) PO DAILY 07/201509/28/2015 Inactive Patient requests 90 days supply cyclobenzaprine 10 mg tablet RxNorm: 136382 Tablet(s) TABLET(S) TABLET(S) 1 TABLET (S) PO NEEDED TAKE 1 TABLET BY MOUTH EVERY 8 HOURS NEEDED 07/23/2015 10/01/2015 Inactive early fill- pt lost med Promethazine VC 6.25 mg-5 mg/5 mL syrup RxNorm: 9102930 1-2 Teaspoon(s) PO Q6 PRN as needed 07/22/2015 03/20/2016 Inactive Diflucan 150 mg tablet RxNorm: 705599 1 Tablet(s) PO daily 06/201507/22/2015 Inactive Lasix 20 mg tablet RxNorm: 696973 Tablet(s) TAKE 2 TABLETS BY MOUTH EVERY MORNING AND 2 TABLET BY MOUTH AT 3PM 07/16/2015 09/21/2015 Inactive Toprol XL 100 mg tablet,extended release RxNorm: 288450 Tablet(s) TAKE 1 TABLET BY MOUTH TWICE DAILY 07/16/20152015 Inactive Cartia XT 180 mg capsule,extended release RxNorm: 332626 Capsule(s) 1 CAPSULE(S) PO DAILY TAKE 1 CAPSULE BY MOUTH AT BEDTIME ..TAKE THIS IN ADDITION TO 240 MG IN THE MORNING 07/14/2015 04/10/2016 Inactive diltiazem ER (XR/XT) 240 mg capsule,extended release, controlled RxNorm: 597313 Capsule(s) TAKE 1 CAPSULE BY MOUTH DAILY 07/14/2015 03/17/2016 Inactive gabapentin 600 mg tablet RxNorm: 078766 Tablet(s) 1.5 TABLET(S) PO TID 07/06/2015 08/12/2015 Inactive Phenergan 25 mg tablet RxNorm: 675937 1 Tablet(s) PO Q8 as needed nausea 06/29/2015 01/25/2016 Inactive doxycycline monohydrate 100 mg tablet RxNorm: 139255 1 Tablet(s) PO BID 06/29/2015 06/28/2015 Inactive doxycycline monohydrate 100 mg tablet RxNorm: 659583 1 Tablet(s) PO BID 06/29/2015 07/08/2015 Inactive give doxycyline hyclate doxycycline monohydrate 100 mg tablet RxNorm: 165551 1 Tablet(s) PO BID 06/29/2015 06/28/2015 Inactive Lasix 20 mg tablet RxNorm: 170731 Tablet(s) TAKE 2 TABLETS BY MOUTH EVERY MORNING AND 2 TABLET BY MOUTH AT 3PM 06/29/2015 07/15/2015 Inactive Lasix 20 mg tablet RxNorm: 504983 Tablet(s) TAKE 2 TABLETS BY MOUTH EVERY MORNING AND 1 TABLET BY MOUTH AT 3PM 06/26/2015 06/28/2015 Inactive Xanax 0.5 mg tablet RxNorm: 971789 Tablet(s) TAKE 1 TABLET BY MOUTH THREE TIMES DAILY 06/26/2015 07/25/2015 Inactive Kenalog 40 mg/mL suspension for injection RxNorm: 7803955 Milliliter(s) Inj 06/26/2015 06/26/2015 Inactive hydrocodone 7.5 mg-acetaminophen 325 mg tablet RxNorm: 159744 1 Tablet(s) PO q 6 hours prn for pain 06/26/2015 07/25/2015 Inactive Dexilant 60 mg capsule, delayed release RxNorm: 548208 1 Capsule(s) PO daily 06/26/2015 08/24/2015 Inactive colestipol 1 gram tablet RxNorm: 1714084 1 TABLET(S) PO BID TAKE 1 TABLET BY MOUTH TWICE DAILY 06/16/2015 03/11/2016 Inactive hydrocodone 7.5 mg-acetaminophen 325 mg tablet RxNorm: 889755 1 Tablet(s) PO q 6 hours prn for pain 06/11/2015 06/25/2015 Inactive cyclobenzaprine 10 mg tablet RxNorm: 817464 TABLET(S) TABLET(S) 1 TABLET(S) PO NEEDED TAKE 1 TABLET BY MOUTH EVERY 8 HOURS NEEDED 201507/22/2015 Inactive early fill- pt lost med Zofran 4 mg tablet RxNorm: 350864 1 TABLET(S) PRN TAKE 1 TABLET BY MOUTH EVERY 4 TO 6 HOURS NEEDED 05/25/20152015 Inactive Zofran 4 mg tablet RxNorm: 458491 1 Tablet(s) PRN TAKE 1 TABLET BY MOUTH EVERY 4 TO 6 HOURS NEEDED 05/19/20152015 Inactive gabapentin 600 mg tablet RxNorm: 413803 1.5 TABLET(S) PO TID 07/05/2015 Inactive Lasix 20 mg tablet RxNorm: 857441 TAKE 2 TABLETS BY MOUTH EVERY MORNING AND 1 TABLET BY MOUTH AT 3PM 05/07/20152015 Inactive Effexor XR 37.5 mg capsule,extended release RxNorm: 197672 Capsule(s) CAPSULE(S) PO TAKE 2 CAPSULES BY MOUTH EVERY MORNING AND 1 CAPSULE BY MOUTH EVERY NIGHT AT BEDTIME 04/15/2015 08/26/2015 Inactive Diflucan 150 mg tablet RxNorm: 428163 1 Tablet(s) PO daily 04/18/2015 Inactive Victoza 3-Babak 0.6 mg/0.1 mL (18 mg/3 mL) subcutaneous pen injector RxNorm: 461727 1.8 Milligram(s) SQ daily 04/14/201508/10 Inactive Levaquin 500 mg tablet RxNorm: 057175 1 Tablet(s) PO daily 04/20/2015 Inactive potassium chloride ER 10 mEq tablet,extended release RxNorm: 321727 1 TABLET(S) PO QDAY PRN TAKE WITH LASIX 04/13/201504/2016 Inactive Effexor XR 37.5 mg capsule,extended release RxNorm: 843728 CAPSULE(S) PO TAKE 2 CAPSULES BY MOUTH EVERY MORNING AND 1 CAPSULE BY MOUTH EVERY NIGHT AT BEDTIME 04/10/2015 04/14/2015 Inactive pantoprazole 40 mg tablet,delayed release RxNorm: 448976 1 Tablet(s) PO daily 03/31/2015 08/31/2015 Inactive Dexilant 60 mg capsule, delayed release RxNorm: 817473 1 Capsule(s) PO daily 03/31/2015 03/31/2015 Inactive pantoprazole 40 mg tablet,delayed release RxNorm: 973777 1 Tablet(s) PO daily 03/31/2015 03/30/2015 Inactive Dexilant 60 mg capsule, delayed release RxNorm: 656939 1 Capsule(s) PO daily 03/31/2015 05/29/2015 Inactive Dexilant 60 mg capsule, delayed release RxNorm: 161033 1 Capsule(s) PO daily 03/30/2015 03/30/2015 Inactive hydrocodone 7.5 mg-acetaminophen 325 mg tablet RxNorm: 590460 1 Tablet(s) PO q 6 hours prn for pain 03/30/2015 04/28/2015 Inactive cyclobenzaprine 10 mg tablet RxNorm: 038077 TABLET(S) TABLET(S) 1 TABLET(S) PO NEEDED TAKE 1 TABLET BY MOUTH EVERY 8 HOURS NEEDED 201405/31/2015 Inactive early fill- pt lost med Xanax 0.5 mg tablet RxNorm: 173903 Tablet(s) TAKE 1 TABLET BY MOUTH THREE TIMES DAILY 03/25/2015 04/23/2015 Inactive Lasix 20 mg tablet RxNorm: 971558 TAKE 2 TABLETS BY MOUTH EVERY MORNING AND 1 TABLET BY MOUTH AT 3PM 03/23/20152014 Inactive Levemir Flexpen 100 unit/mL (3 mL) solution subcutaneous insulin pen RxNorm: 554778 15 Unit(s) SQ BID 03/20/20152015 Inactive give quanity sufficient for 1 month- Dexilant 60 mg capsule, delayed release RxNorm: 283109 1 Capsule(s) PO daily 03/19/2015 03/29/2015 Inactive Dexilant 60 mg capsule, delayed release RxNorm: 350064 1 Capsule(s) PO daily 03/19/2015 03/18/2015 Inactive Diflucan 150 mg tablet RxNorm: 731967 1 Tablet(s) PO every other day x7 doses 03/19/2015 03/21/2015 Inactive hydrocodone 7.5 mg-acetaminophen 325 mg tablet RxNorm: 903215 1 Tablet(s) PO q 6 hours prn for pain 02/27/2015 03/28/2015 Inactive Lasix 20 mg tablet RxNorm: 887546 TAKE 2 TABLETS BY MOUTH EVERY MORNING AND 1 TABLET BY MOUTH AT 3PM 02/27/20152014 Inactive omeprazole 20 mg capsule,delayed release RxNorm: 402289 1 CAPSULE(S) PO DAILY TAKE 1 CAPSULE BY MOUTH TWICE DAILY 02/26/2015 10/26/2017 Inactive Zofran 4 mg tablet RxNorm: 244776 1 Tablet(s) PRN TAKE 1 TABLET BY MOUTH EVERY 4 TO 6 HOURS NEEDED 02/24/20152014 Inactive fluconazole 150 mg tablet RxNorm: 791599 1 Tablet(s) PO every other day x 5 doses 02/19/2015 02/28/2015 Inactive cyclobenzaprine 10 mg tablet RxNorm: 370356 TABLET(S) TABLET(S) 1 TABLET(S) PO NEEDED TAKE 1 TABLET BY MOUTH EVERY 8 HOURS NEEDED 201403/29/2015 Inactive early fill- pt lost med hydrocodone 7.5 mg-acetaminophen 325 mg tablet RxNorm: 876474 1 Tablet(s) PO q 6 hours prn for pain 01/29/2015 02/26/2015 Inactive Xanax 0.5 mg tablet RxNorm: 380756 Tablet(s) TAKE 1 TABLET BY MOUTH THREE TIMES DAILY 01/29/2015 02/27/2015 Inactive Bactroban 2 % topical ointment RxNorm: 209653 1 APPLICATION TOP BID 01/26/2015 10/26/2015 Inactive Bactroban 2 % topical ointment RxNorm: 533020 1 Application TOP BID 01/15/2015 01/25/2015 Inactive doxycycline hyclate 100 mg tablet RxNorm: 366314 1 Tablet(s) PO BID 01/15/2015 01/21/2015 Inactive nystatin 100,000 unit/mL oral suspension RxNorm: 393332 5 Milliliter(s) PO QID 01/15/2015 01/24/2015 Inactive Cartia XT 180 mg capsule,extended release RxNorm: 909575 1 CAPSULE(S) PO DAILY TAKE 1 CAPSULE BY MOUTH AT BEDTIME ..TAKE THIS IN ADDITION TO 240 MG IN THE MORNING 01/13/2015 07/13/2015 Inactive Lasix 20 mg tablet RxNorm: TAKE 2 TABLETS BY MOUTH EVERY MORNING AND 1 TABLET BY MOUTH AT 3PM 01/08/20152014 Inactive fluconazole 150 mg tablet RxNorm: 424974 1 Tablet(s) PO daily 01/01/2015 01/05/2015 Inactive hydrocodone 7.5 mg-acetaminophen 325 mg tablet RxNorm: 934611 1 Tablet(s) PO q 6 hours prn for pain 01/01/2015 01/28/2015 Inactive colestipol 1 gram tablet RxNorm: 9674589 1 TABLET(S) PO BID TAKE 1 TABLET BY MOUTH TWICE DAILY 12/18/2014 06/15/2015 Inactive colestipol 1 gram tablet RxNorm: 9147528 1 TABLET(S) PO BID TAKE 1 TABLET BY MOUTH TWICE DAILY 12/18/2014 09/13/2015 Inactive Lasix 20 mg tablet RxNorm: 585327 TAKE 2 TABLETS BY MOUTH EVERY MORNING AND 2 TABLETS AND AT 3PM 12/11/2014 12/25/2014 Inactive cyclobenzaprine 10 mg tablet RxNorm: 634124 TABLET(S) 1 TABLET(S) PO NEEDED TAKE 1 TABLET BY MOUTH EVERY 8 HOURS NEEDED 12/11/2014 05/31/2017 Inactive Lasix 20 mg tablet RxNorm: 309892 Tablet(s) TABLET(S) PO TAKE 2 TABLETS BY MOUTH EVERY MORNING AND 1 TABLET BY MOUTH AT 3 PM 12/10/2014 12/10/2014 Inactive fill early- pt lost them cyclobenzaprine 10 mg tablet RxNorm: 279752 Tablet(s) TABLET(S) 1 TABLET(S) PO NEEDED TAKE 1 TABLET BY MOUTH EVERY 8 HOURS NEEDED 201402/15/2015 Inactive early fill- pt lost med cyclobenzaprine 10 mg tablet RxNorm: 823700 TABLET(S) 1 TABLET(S) PO NEEDED TAKE 1 TABLET BY MOUTH EVERY 8 HOURS NEEDED 12/02/2014 12/09/2014 Inactive hydrocodone 7.5 mg-acetaminophen 325 mg tablet RxNorm: 659899 1 Tablet(s) PO q 6 hours prn for pain 12/01/2014 12/30/2014 Inactive diltiazem ER (XR/XT) 240 mg capsule,extended release, controlled RxNorm: 549333 TAKE 1 CAPSULE BY MOUTH DAILY 11/30/2014 07/13/2015 Inactive Xanax 0.5 mg tablet RxNorm: 856027 1 Tablet(s) PO TID PRN as needed 11/19/2014 11/19/2014 Inactive (Appended: Controlled substance eRx refill - RxReferenceNumber: [id number]|1|0|1) Xanax 0.5 mg tablet RxNorm: 658335 TAKE 1 TABLET BY MOUTH THREE TIMES DAILY 11/19/2014 12/18/2014 Inactive Toprol XL 100 mg tablet,extended release RxNorm: 089943 TAKE 1 TABLET BY MOUTH TWICE DAILY 11/06/2014 07/15/2015 Inactive Diflucan 150 mg tablet RxNorm: 448099 1 Tablet(s) PO every other day x7 doses 11/05/2014 11/07/2014 Inactive omeprazole 20 mg capsule,delayed release RxNorm: 864883 1 Capsule(s) PO daily TAKE 1 CAPSULE BY MOUTH TWICE DAILY 11/04/2014 02/01/2015 Inactive cyclobenzaprine 10 mg tablet RxNorm: 955673 TABLET(S) 1 TABLET(S) PO NEEDED TAKE 1 TABLET BY MOUTH EVERY 8 HOURS NEEDED 10/28/2014 12/01/2014 Inactive hydrocodone 7.5 mg-acetaminophen 325 mg tablet RxNorm: 208908 1 Tablet(s) PO q 6 hours prn for pain 10/21/2014 11/19/2014 Inactive gabapentin 600 mg tablet RxNorm: 893972 1.5 Tablet(s) PO TID 04/30/2015 Inactive Xanax 0.5 mg tablet RxNorm: 851308 Tablet(s) TAKE 1 TABLET BY MOUTH THREE TIMES DAILY 10/01/2014 10/30/2014 Inactive (Response to an electronic controlled substance refill request - RxReferenceNumber: [id number]|1|0|1) Xanax 0.25 mg tablet RxNorm: 986939 1 Tablet(s) PO Q8 PRN as needed 09/30/2014 09/30/2014 Inactive Lasix 20 mg tablet RxNorm: 688080 Tablet(s) TAKE 2 TABLETS BY MOUTH EVERY MORNING AND 2 TABLETS BY MOUTH AT 3 PM 09/30/2014 11/12/2014 Inactive Victoza 3-Babak 0.6 mg/0.1 mL (18 mg/3 mL) subcutaneous pen injector RxNorm: 540047 1.2 MILLIGRAM(S) SQ DAILY 0.6 X 2 WEEKS THEN INCREASE TO 1.2MG DAILY 09/26/2014 04/13/2015 Inactive Xanax 0.5 mg tablet RxNorm: 820720 TAKE 1 TABLET BY MOUTH THREE TIMES DAILY 09/25/2014 09/30/2014 Inactive (Response to an electronic controlled substance refill request - [id number]|1|0|1) Zofran 4 mg tablet RxNorm: 347735 TAKE 1 TABLET BY MOUTH EVERY 4 TO 6 HOURS NEEDED 09/25/2014 09/27/2014 Inactive hydrocodone 7.5 mg-acetaminophen 325 mg tablet RxNorm: 761171 1 Tablet(s) PO q 6 hours prn for pain 09/19/2014 10/18/2014 Inactive cyclobenzaprine 10 mg tablet RxNorm: 579658 TABLET(S) 1 TABLET(S) PO NEEDED TAKE 1 TABLET BY MOUTH EVERY 8 HOURS NEEDED 09/15/2014 10/27/2014 Inactive Lasix 20 mg tablet RxNorm: 723978 Tablet(s) TAKE 2 TABLETS BY MOUTH EVERY MORNING AND 2 TABLETS BY MOUTH AT 3 PM 09/08/2014 09/29/2014 Inactive Lasix 20 mg tablet RxNorm: 436583 TAKE 2 TABLETS BY MOUTH EVERY MORNING AND 2 TABLETS BY MOUTH AT 3 PM 08/21/20142014 Inactive hydrocodone 7.5 mg-acetaminophen 325 mg tablet RxNorm: 955433 1 Tablet(s) PO q 6 hours prn for pain 08/21/2014 09/18/2014 Inactive Diflucan 150 mg tablet RxNorm: 603699 1 Tablet(s) PO every other day 08/15/2014 08/17/2014 Inactive cyclobenzaprine 10 mg tablet RxNorm: 155747 Tablet(s) 1 TABLET(S) PO NEEDED TAKE 1 TABLET BY MOUTH EVERY 8 HOURS NEEDED 08/12/2014 09/14/2014 Inactive Zofran 4 mg tablet RxNorm: 141625 TAKE 1 TABLET BY MOUTH EVERY 4 TO 6 HOURS NEEDED 07/31/2014 08/02/2014 Inactive Effexor XR 37.5 mg capsule,extended release RxNorm: 816123 CAPSULE(S) PO TAKE 2 CAPSULES BY MOUTH EVERY MORNING AND 1 CAPSULE BY MOUTH EVERY NIGHT AT BEDTIME 07/28/2014 02/15/2016 Inactive Lasix 20 mg tablet RxNorm: TAKE 2 TABLETS BY MOUTH EVERY MORNING AND 2 TABLETS BY MOUTH AT 3 PM 07/22/20142014 Inactive Diflucan 150 mg tablet RxNorm: 020834 1 Tablet(s) PO daily 06/201407/23/2014 Inactive hydrocodone 7.5 mg-acetaminophen 325 mg tablet RxNorm: 000660 1 Tablet(s) PO q 6 hours prn for pain 07/14/2014 08/12/2014 Inactive Synthroid 88 mcg tablet RxNorm: 175103 1 TABLET(S) PO DAILY 10/11/2014 Inactive Effexor XR 37.5 mg capsule,extended release RxNorm: 115849 Capsule(s) PO TAKE 2 CAPSULES BY MOUTH EVERY MORNING AND 1 CAPSULE BY MOUTH EVERY NIGHT AT BEDTIME 07/07/2014 04/09/2015 Inactive Effexor XR 37.5 mg capsule,extended release RxNorm: 590575 TAKE 2 CAPSULES BY MOUTH EVERY MORNING AND 1 CAPSULE BY MOUTH EVERY NIGHT AT BEDTIME 07/07/2014 01/02/2015 Inactive WelChol 625 mg tablet RxNorm: 364815 3 TABLET(S) PO BID 201410/04/2014 Inactive WelChol 625 mg tablet RxNorm: 522755 3 Tablet(s) PO BID 201402/01/2015 Inactive Zofran 4 mg tablet RxNorm: 653466 TAKE 1 TABLET BY MOUTH EVERY 4 TO 6 HOURS NEEDED 07/03/2014 07/05/2014 Inactive Lasix 20 mg tablet RxNorm: TAKE 2 TABLETS BY MOUTH EVERY MORNING AND 2 TABLETS BY MOUTH AT 3 PM 06/26/20142014 Inactive Diflucan 150 mg tablet RxNorm: 056131 1 Tablet(s) PO daily 06/19/2014 Inactive Promethazine VC 6.25 mg-5 mg/5 mL syrup RxNorm: 3579478 1-2 Teaspoon(s) PO Q6 PRN as needed 06/12/2014 07/21/2015 Inactive hydrocodone 7.5 mg-acetaminophen 325 mg tablet RxNorm: 001745 1 Tablet(s) PO q 6 hours prn for pain 06/03/2014 07/02/2014 Inactive Levaquin 500 mg tablet RxNorm: 935889 1 Tablet(s) PO daily 01/201506/05/2014 Inactive cyclobenzaprine 10 mg tablet RxNorm: 314438 Tablet(s) 1 TABLET(S) PO NEEDED TAKE 1 TABLET BY MOUTH EVERY 8 HOURS NEEDED 05/26/2014 No Stop Date Active cyclobenzaprine 10 mg tablet RxNorm: 678643 1 TABLET(S) PO NEEDED TAKE 1 TABLET BY MOUTH EVERY 8 HOURS NEEDED 05/26/2014 08/11/2014 Inactive Lasix 20 mg tablet RxNorm: 444493 Tablet(s) TABLET(S) PO TAKE 2 TABLETS BY MOUTH EVERY MORNING AND 2 TABLET BY MOUTH AT 3 PM 05/12/2014 06/25/2014 Inactive Combivent Respimat 20 mcg-100 mcg/actuation solution for inhalation RxNorm: 4881300 INHALE 1 PUFF BY MOUTH FOUR TIMES DAILY 05/12/2014 11/07/2014 Inactive fluconazole 150 mg tablet RxNorm: 328327 1 Tablet(s) PO UD 05/12/2014 Inactive 1 tab every other day x 5 doses Activella 0.5 mg-0.1 mg tablet RxNorm: 0905221 1 TABLET(S) PO DAILY TAKE 1 TABLET BY MOUTH DAILY FOR MENOPAUSAL SYMPTOM 05/02/2014 09/21/2015 Inactive hydrocodone 7.5 mg-acetaminophen 300 mg tablet RxNorm: 707890 Tablet(s) PO TAKE 1 TABLET BY MOUTH EVERY 6 HOURS NEEDED FOR PAIN 04/21/2014 06/03/2014 Inactive ( Appended: Controlled substance eRx refill - RxReferenceNumber: [id number]|1|0|1 ) Levaquin 500 mg tablet RxNorm: 543148 1 Tablet(s) PO daily 04/21/2014 Inactive Diflucan 150 mg tablet RxNorm: 191702 1 Tablet(s) PO every other day x 4 doses 04/10/2014 06/16/2014 Inactive Lasix 20 mg tablet RxNorm: 971060 TAKE 2 TABLETS BY MOUTH EVERY MORNING AND 1 TABLET BY MOUTH AT 3 PM 04/10/20142013 Inactive potassium chloride ER 10 mEq tablet,extended release RxNorm: 224104 1 TABLET(S) PO QDAY PRN TAKE WITH LASIX 04/09/2014 Inactive Levaquin 250 mg tablet RxNorm: 915158 1 Tablet(s) PO daily 08/201304/07/2014 Inactive 2 tabs today then 1 tab daily until gone atorvastatin 40 mg tablet RxNorm: 972370 1 Tablet(s) daily 1 TABLET(S) PO DAILY 03/25/2014 04/10/2016 Inactive TAKE 1 TABLET BY MOUTH DAILY (THIS IS AN INCREASE IN DOSAGE) Zofran 4 mg tablet RxNorm: 173969 1 Tablet(s) PO Q4-6H 201307/02/2014 Inactive Xanax 0.5 mg tablet RxNorm: 350885 TAKE 1 TABLET BY MOUTH THREE TIMES DAILY NEEDED 03/19/2014 04/17/2014 Inactive (Response to an electronic controlled substance refill request - RxReferenceNumber: [id number]|1|0|1) hydrocodone 7.5 mg-acetaminophen 300 mg tablet RxNorm: 481437 Tablet(s) PO TAKE 1 TABLET BY MOUTH EVERY 6 HOURS NEEDED FOR PAIN 03/19/2014 04/20/2014 Inactive ( Appended: Controlled substance eRx refill - RxReferenceNumber: [id number]|1|0|1 ) atorvastatin 40 mg tablet RxNorm: 053204 1 TABLET(S) PO DAILY 03/10/2014 03/24/2014 Inactive TAKE 1 TABLET BY MOUTH DAILY (THIS IS AN INCREASE IN DOSAGE) WelChol 625 mg tablet RxNorm: 806822 3 Tablet(s) PO BID 201303/06/2014 Inactive WelChol 625 mg tablet RxNorm: 263366 3 Tablet(s) PO BID 201307/04/2014 Inactive Lasix 20 mg tablet RxNorm: 007952 Tablet(s) TABLET(S) PO TAKE 2 TABLETS BY MOUTH EVERY MORNING AND 2 TABLET BY MOUTH AT 3 PM 03/03/2014 05/11/2014 Inactive Lasix 20 mg tablet RxNorm: TABLET(S) PO TAKE 2 TABLETS BY MOUTH EVERY MORNING AND 1 TABLET BY MOUTH AT 3 PM 02/20/2014 03/02/2014 Inactive gabapentin 600 mg tablet RxNorm: 205770 1.5 Tablet(s) PO TID 09/16/2014 Inactive Synthroid 88 mcg tablet RxNorm: 351264 1 TABLET(S) PO DAILY 05/18/2014 Inactive cyclobenzaprine 10 mg tablet RxNorm: 514200 1 TABLET(S) PO NEEDED TAKE 1 TABLET BY MOUTH EVERY 8 HOURS NEEDED 02/18/2014 05/25/2014 Inactive doxycycline hyclate 100 mg tablet RxNorm: 167087 1 Tablet(s) PO BID 02/13/2014 02/22/2014 Inactive Bactroban 2 % topical ointment RxNorm: 065846 1 Application TOP BID 02/13/2014 03/12/2014 Inactive Victoza 3-Babak 0.6 mg/0.1 mL (18 mg/3 mL) subcutaneous pen injector RxNorm: 609040 1.2 MILLIGRAM(S) SQ DAILY 0.6 X 2 WEEKS THEN INCREASE TO 1.2MG DAILY 02/10/2014 05/10/2014 Inactive albuterol sulfate 1.25 mg/3 mL solution for nebulization RxNorm: 357584 3 MILLILITER(S) INH TID 02/07/20142014 Inactive 1 box Victoza 3-Babak 0.6 mg/0.1 mL (18 mg/3 mL) subcutaneous pen injector RxNorm: 742869 1.8 Milligram(s) SQ daily 0.6 x 2 weeks then increase to 1.2mg daily 01/27/2014 05/26/2014 Inactive Levemir Flexpen 100 unit/mL (3 mL) solution subcutaneous insulin pen RxNorm: 727164 5units sq at hs, increase by 3 Unit(s) SQ at hs every 3days, goal FSBS 170 or less, do not increase above 20units, call doctor with report 01/27/2014 05/26/2014 Inactive hydrocodone 7.5 mg-acetaminophen 300 mg tablet RxNorm: 106664 Tablet(s) PO TAKE 1 TABLET BY MOUTH EVERY 6 HOURS NEEDED FOR PAIN 01/24/2014 03/18/2014 Inactive ( Appended: Controlled substance eRx refill - RxReferenceNumber: [id number]|1|0|1 ) Xanax 0.5 mg tablet RxNorm: 504076 1 Tablet(s) PO TID PRN as needed 01/24/2014 09/21/2014 Inactive (Appended: Controlled substance eRx refill - RxReferenceNumber: [id number]|1|0|1) Xanax 0.5 mg tablet RxNorm: 299561 TAKE 1 TABLET BY MOUTH THREE TIMES DAILY NEEDED 01/23/2014 02/21/2014 Inactive (Response to an electronic controlled substance refill request - RxReferenceNumber: [id number]|1|0|1) hydrocodone 5 mg-acetaminophen 325 mg tablet RxNorm: 452903 TAKE 1 TABLET BY MOUTH EVERY 6 HOURS NEEDED FOR PAIN 01/21/2014 02/19/2014 Inactive (Response to an electronic controlled substance refill request - RxReferenceNumber: [id number]| [id number]|1|0|1) Lasix 20 mg tablet RxNorm: 753104 TAKE 2 TABLETS BY MOUTH EVERY MORNING AND 1 TABLET BY MOUTH AT 3 PM 01/17/20142013 Inactive cyclobenzaprine 10 mg tablet RxNorm: 762321 1 Tablet(s) PO as needed TAKE 1 TABLET BY MOUTH EVERY 8 HOURS NEEDED 01/13/2014 02/17/2014 Inactive Anusol-HC 25 mg suppository RxNorm: 2305889 1 SUPPOSITORY RTL PRN ONE PER RECTUM NEEDED, UP TO TWICE DAILY FOR HEMORRHOID, NO MORE THAN 7 DAYS IN A ROW 01/10/2014 02/06/2014 Inactive Activella 0.5 mg-0.1 mg tablet RxNorm: 0814760 1 Tablet(s) PO daily TAKE 1 TABLET BY MOUTH DAILY FOR MENOPAUSAL SYMPTOM 01/08/2014 05/01/2014 Inactive gabapentin 600 mg tablet RxNorm: 112171 1.5 Tablet(s) PO TID 02/18/2014 Inactive gabapentin 600 mg tablet RxNorm: 414837 1.5 Tablet(s) PO TID 01/01/2014 Inactive hydrocodone 7.5 mg-acetaminophen 300 mg tablet RxNorm: 746443 Tablet(s) PO TAKE 1 TABLET BY MOUTH EVERY 6 HOURS NEEDED FOR PAIN 12/12/2013 01/23/2014 Inactive ( Appended: Controlled substance eRx refill - RxReferenceNumber: [id number]|1|0|1 ) Levaquin 250 mg tablet RxNorm: 644944 1 Tablet(s) PO daily 12/18/2013 Inactive 2 tabs today then 1 tab daily until gone Diflucan 150 mg tablet RxNorm: 541085 1 Tablet(s) PO daily 12/16/2013 Inactive do not stat until levaquin is completed Cartia XT 180 mg capsule,extended release RxNorm: 918221 1 CAPSULE(S) PO DAILY TAKE 1 CAPSULE BY MOUTH AT BEDTIME ..TAKE THIS IN ADDITION TO 240 MG IN THE MORNING 12/12/2013 12/06/2014 Inactive diltiazem ER (XR/XT) 240 mg capsule,extended release, controlled RxNorm: 254510 1 Capsule(s) PO daily TAKE 1 CAPSULE BY MOUTH EVERY DAY 11/28/2014 Inactive Effexor XR 37.5 mg capsule,extended release RxNorm: 619926 Capsule(s) PO TAKE 2 CAPSULES BY MOUTH EVERY MORNING AND 1 CAPSULE BY MOUTH EVERY NIGHT AT BEDTIME 12/04/2013 07/06/2014 Inactive Lasix 20 mg tablet RxNorm: TABLET(S) PO TAKE 2 TABLETS BY MOUTH EVERY MORNING AND 1 TABLET BY MOUTH AT 3 PM 12/04/2013 12/09/2014 Inactive Voltaren 1 % topical gel RxNorm: 109309 4 Gram(s) TOP QID 11/2703/26/2014 Inactive Cartia XT 180 mg capsule,extended release RxNorm: 577974 1 Capsule(s) PO daily TAKE 1 CAPSULE BY MOUTH AT BEDTIME ..TAKE THIS IN ADDITION TO 240 MG IN THE MORNING 11/27/2013 01/12/2015 Inactive Lasix 20 mg tablet RxNorm: TABLET(S) PO TAKE 2 TABLETS BY MOUTH EVERY MORNING AND 1 TABLET BY MOUTH AT 3 PM 11/26/2013 02/19/2014 Inactive colestipol 1 gram tablet RxNorm: 5447020 1 Tablet(s) PO BID TAKE 1 TABLET BY MOUTH TWICE DAILY 11/26/2013 11/20/2014 Inactive cyclobenzaprine 10 mg tablet RxNorm: 922737 Tablet(s) PO TAKE 1 TABLET BY MOUTH EVERY 8 HOURS NEEDED 11/21/20132013 Inactive Diflucan 150 mg tablet RxNorm: 141011 1 Tablet(s) PO daily TAKE 1 TABLET BY MOUTH EVERY OTHER DAY FOR 8 DOSES 11/14/201306/2013 Inactive peak flow meter-inh assist dev kit RxNorm: 1 dose Miscellaneous PRN 11/14/2013 10/27/2017 Inactive Effexor XR 37.5 mg capsule,extended release RxNorm: 019884 Capsule(s) PO TAKE 2 CAPSULES BY MOUTH EVERY MORNING AND 1 CAPSULE BY MOUTH EVERY NIGHT AT BEDTIME 11/04/2013 12/03/2013 Inactive Anusol-HC 25 mg suppository RxNorm: 3719582 1 Suppository RTL PRN one per rectum as needed, up to twice daily for hemorrhoid, no more than 7 days in a row 10/23/2013 10/22/2013 Inactive Anusol-HC 25 mg suppository RxNorm: 2981124 1 Suppository RTL PRN one per rectum as needed, up to twice daily for hemorrhoid, no more than 7 days in a row 10/23/2013 01/09/2014 Inactive Activella 0.5 mg-0.1 mg tablet RxNorm: 9313447 Tablet(s) PO TAKE 1 TABLET BY MOUTH DAILY FOR MENOPAUSAL SYMPTOM 10/21/2013 01/07/2014 Inactive cyclobenzaprine 10 mg tablet RxNorm: 411974 Tablet(s) PO TAKE 1 TABLET BY MOUTH EVERY 8 HOURS NEEDED 10/21/20132013 Inactive Lasix 20 mg tablet RxNorm: 830601 Tablet(s) PO TAKE 2 TABLETS BY MOUTH EVERY MORNING AND 1 TABLET BY MOUTH AT 3 PM 10/17/2013 02/25/2016 Inactive Bactroban 2 % topical ointment RxNorm: 182319 1 Application TOP BID 10/10/2013 11/06/2013 Inactive Zofran 4 mg tablet RxNorm: 539003 1 Tablet(s) PO Q4-6H 201303/20/2014 Inactive Bactroban 2 % topical ointment RxNorm: 567215 1 Application TOP BID 09/27/2013 10/09/2013 Inactive hydrocodone 5 mg-acetaminophen 325 mg tablet RxNorm: 349087 Tablet(s) PO TAKE 1 TABLET BY MOUTH EVERY 6 HOURS NEEDED FOR PAIN 09/26/2013 12/11/2013 Inactive ( Appended: Controlled substance eRx refill - RxReferenceNumber: [id number]|1|0|1 ) hydrocodone 5 mg-acetaminophen 325 mg tablet RxNorm: 163709 1 Tablet(s) PO Q6 PRN 09/26/2013 01/24/2014 Inactive cyclobenzaprine 10 mg tablet RxNorm: 888133 Tablet(s) PO TAKE 1 TABLET BY MOUTH EVERY 8 HOURS NEEDED 09/16/2013 No Stop Date Active omeprazole 20 mg capsule,delayed release RxNorm: 358824 Capsule(s) PO TAKE 1 CAPSULE BY MOUTH TWICE DAILY 09/02/2013 Inactive Lasix 20 mg tablet RxNorm: 093259 Tablet(s) PO TAKE 2 TABLETS BY MOUTH EVERY MORNING AND 1 TABLET BY MOUTH AT 3 PM 09/02/2013 04/10/2016 Inactive Diflucan 150 mg tablet RxNorm: 313293 Tablet(s) PO TAKE 1 TABLET BY MOUTH EVERY OTHER DAY FOR 8 DOSES 08/29/20132013 Inactive Effexor XR 37.5 mg capsule,extended release RxNorm: 035210 Capsule(s) PO TAKE 2 CAPSULES BY MOUTH EVERY MORNING AND 1 CAPSULE BY MOUTH EVERY NIGHT AT BEDTIME 08/29/2013 11/03/2013 Inactive diltiazem ER (XR/XT) 240 mg capsule,extended release, controlled RxNorm: 314921 Capsule(s) PO TAKE 1 CAPSULE BY MOUTH EVERY DAY 201312/03/2013 Inactive Xanax 0.5 mg tablet RxNorm: 865899 1 Tablet(s) PO TID PRN 11/2013 No Stop Date Active (Appended: Controlled substance eRx refill - RxReferenceNumber: [id number]| [id number]|1|0|1) colestipol 1 gram tablet RxNorm: 6069611 Tablet(s) PO TAKE 1 TABLET BY MOUTH TWICE DAILY 08/26/2013 11/25/2013 Inactive Victoza 3-Babak 0.6 mg/0.1 mL (18 mg/3 mL) subcutaneous pen injector RxNorm: 162705 1.2 Milligram(s) SQ daily 0.6 x 2 weeks then increase to 1.2mg daily 08/19/2013 12/16/2013 Inactive Synthroid 88 mcg tablet RxNorm: 555358 1 Tablet(s) PO daily 12/09/2013 Inactive Lasix 20 mg tablet RxNorm: Tablet(s) PO TAKE 2 TABLETS BY MOUTH EVERY MORNING AND 2 TABLETS BY MOUTH AT 3 PM 08/12/2013 10/18/2016 Inactive Xanax 0.5 mg tablet RxNorm: 964934 1 Tablet(s) PO TID PRN No Stop Date Active (Appended: Controlled substance [facility]| [id number]|1|0|1) Lasix 20 mg tablet RxNorm: Tablet(s) PO TAKE 2 TABLETS BY MOUTH EVERY MORNING AND 1 TABLET BY MOUTH AT 3 PM 08/07/2013 08/11/2013 Inactive Voltaren 1 % topical gel RxNorm: 078566 4 Gram(s) TOP QID 08/0111/26/2013 Inactive Zyvox 600 mg tablet RxNorm: 276004 1 Tablet(s) PO BID 201307/27/2013 Inactive please call the office is this is too expensive for the pt Zyvox 600 mg tablet RxNorm: 132279 1 Tablet(s) PO BID 201307/17/2013 Inactive hydrocodone 5 mg-acetaminophen 325 mg tablet RxNorm: 9393607 1 Tablet(s) PO Q6 PRN 07/15/2013 09/26/2013 Inactive Zofran 4 mg tablet RxNorm: 131167 1 Tablet(s) PO Q4-6H 201310/02/2013 Inactive Lasix 20 mg tablet RxNorm: Tablet(s) PO TAKE 2 TABLETS BY MOUTH EVERY MORNING AND 1 TABLET BY MOUTH AT 3 PM 07/11/2013 10/18/2016 Inactive cyclobenzaprine 10 mg tablet RxNorm: 414372 1 Tablet(s) PO Q8 PRN 06/27/2013 08/25/2013 Inactive gabapentin 600 mg tablet RxNorm: 828488 1.5 Tablet(s) PO TID 01/02/2014 Inactive Lasix 20 mg tablet RxNorm: Tablet(s) PO TAKE 2 TABLETS BY MOUTH EVERY MORNING AND 1 TABLET BY MOUTH AT 3 PM 06/17/2013 07/10/2013 Inactive hydrocodone 5 mg-acetaminophen 325 mg tablet RxNorm: 125624 1 Tablet(s) PO Q6 PRN 06/10/2013 07/14/2013 Inactive hydrocortisone 2.5 % rectal cream RxNorm: 189732 1 Suppository RTL BID PRN 06/10/2013 06/29/2013 Inactive Flexeril 10 mg tablet RxNorm: 994677 1 Tablet(s) PO Q8 PRN 06/0406/26/2013 Inactive diltiazem ER (XR/XT) 240 mg capsule,extended release, controlled RxNorm: 160332 Capsule(s) PO TAKE 1 CAPSULE BY MOUTH EVERY DAY 201310/26/2017 Inactive omeprazole 20 mg capsule,delayed release RxNorm: 322310 Capsule(s) PO TAKE 1 CAPSULE BY MOUTH TWICE DAILY 05/24/2013 Inactive colestipol 1 gram tablet RxNorm: 7296481 Tablet(s) PO TAKE 1 TABLET BY MOUTH TWICE DAILY 05/23/2013 04/21/2016 Inactive Januvia 100 mg tablet RxNorm: 673792 1 Tablet(s) PO daily 201308/18/2013 Inactive Activella 0.5 mg-0.1 mg tablet RxNorm: 016495 Tablet(s) PO TAKE 1 TABLET BY MOUTH DAILY FOR MENOPAUSAL SYMPTOM 05/17/2013 Inactive Xanax 0.5 mg tablet RxNorm: 990674 1 Tablet(s) PO TID PRN 08/06/2013 Inactive (Appended: Controlled substance eRx refill - RxReferenceNumber: [id number]| [id number]|1|0|1) Kenalog 40 mg/mL suspension for injection RxNorm: 2841724 Milliliter(s) Inj 05/07/2013 05/07/2013 Inactive levofloxacin 500 mg tablet RxNorm: 536715 1 Tablet(s) PO daily pt to take 500mg on day#1, 3, 5, 7 and 1/2 tablet on days 2, 4, 6, and 8 05/0705/14/2013 Inactive Lyrica 50 mg capsule RxNorm: 576424 1 Capsule(s) PO TID 201206/26/2013 Inactive hydrocodone 5 mg-acetaminophen 500 mg tablet RxNorm: 444857 1 Tablet(s) PO Q6 PRN 04/22/2013 06/09/2013 Inactive Zofran 4 mg tablet RxNorm: 014088 1 Tablet(s) PO Q4-6H 201207/14/2013 Inactive Zofran 4 mg tablet RxNorm: 083210 1 Tablet(s) PO Q6 PRN 04/0404/08/2013 Inactive hydrocodone 5 mg-acetaminophen 500 mg tablet RxNorm: 917920 1 Tablet(s) PO Q6 PRN 03/21/2013 04/21/2013 Inactive Diflucan 150 mg tablet RxNorm: 495106 1 Tablet(s) PO every other day 1 pill po every other day x 8 doses 03/19/201306/26 Inactive potassium chloride ER 10 mEq tablet,extended release RxNorm: 870500 1 Tablet(s) PO QDAY PRN take with lasix 03/07/201302/2014 Inactive potassium chloride ER 10 mEq tablet,extended release RxNorm: 337177 1 Tablet(s) PO QDAY PRN take with lasix 03/04/2013 Inactive fluconazole 150 mg tablet RxNorm: 912418 1 Tablet(s) PO daily 03/01/2013 02/28/2013 Inactive fluconazole 150 mg tablet RxNorm: 251879 1 Tablet(s) PO daily 03/01/2013 03/05/2013 Inactive Combivent 18 mcg-103 mcg/actuation Aerosol Inhaler RxNorm: 784972 2 Puff(s) INH QID 02/12/2013 02/12/2013 Inactive Zofran 4 mg tablet RxNorm: 555727 1 Tablet(s) PO Q6 PRN 02/1104/03/2013 Inactive Lasix 20 mg tablet RxNorm: 557202 1 Tablet(s) PO BID one pill in morning and one pill in afternoon (3pm) 02/04/2013 Inactive Xopenex HFA 45 mcg/actuation Aerosol Inhaler RxNorm: 599154 2 INH QID 01/29/2013 09/21/2015 Inactive Effexor XR 37.5 mg capsule,extended release RxNorm: 403441 2 q am and 1 at hs Capsule(s) PO TAKE 2 CAPSULES BY MOUTH EVERY MORNING AND 1 CAPSULE EVERY NIGHT AT BEDTIME 01/29/2013 02/15/2016 Inactive fluconazole 150 mg tablet RxNorm: 388519 1 Tablet(s) PO daily 01/29/2013 02/02/2013 Inactive hydrocodone 5 mg-acetaminophen 500 mg tablet RxNorm: 256524 1 Tablet(s) PO Q6 PRN 01/29/2013 03/20/2013 Inactive Effexor XR 37.5 mg capsule,extended release RxNorm: 636982 Capsule(s) PO 01/29/2013 08/28/2013 Inactive TAKE 2 CAPSULES BY MOUTH EVERY MORNING AND 1 CAPSULE EVERY NIGHT AT BEDTIME doxycycline hyclate 100 mg tablet RxNorm: 895943 1 Tablet(s) PO BID 01/01/2013 01/10/2013 Inactive doxycycline hyclate 100 mg tablet RxNorm: 736457 1 Tablet(s) PO BID 01/01/2013 12/31/2012 Inactive Synthroid 75 mcg tablet RxNorm: 488911 1 Tablet(s) PO daily 06/29/2013 Inactive Synthroid 75 mcg tablet RxNorm: 601636 1 Tablet(s) PO daily 12/31/2012 Inactive Xanax 0.5 mg tablet RxNorm: 878003 Tablet(s) PO TAKE 1/2 TO 1 TABLET BY MOUTH EVERY 8 HOURS NEEDED FOR ANXIETY 12/27/2012 05/06/2013 Inactive (Appended: Controlled substance eRx refill - RxReferenceNumber: [id number]|1|0|1) Lasix 20 mg tablet RxNorm: 729797 1 Tablet(s) PO daily 201202/03/2013 Inactive Santyl 250 unit/gram Topical Ointment RxNorm: 3203320 1 Application TOP daily 12/20/2012 12/29/2012 Inactive Levaquin 500 mg tablet RxNorm: 964448 1 Tablet(s) PO daily 05/201212/26/2012 Inactive acyclovir 400 mg tablet RxNorm: 757773 1 Tablet(s) PO TID 12/0312/09/2012 Inactive acyclovir 400 mg tablet RxNorm: 704162 1 Tablet(s) PO TID 12/0312/02/2012 Inactive fluconazole 150 mg tablet RxNorm: 063828 1 Tablet(s) PO daily 11/26/2012 11/30/2012 Inactive Effexor XR 37.5 mg capsule,extended release RxNorm: 695110 Capsule(s) PO TAKE 2 CAPSULES BY MOUTH EVERY MORNING AND 1 CAPSULE EVERY NIGHT AT BEDTIME 11/14/2012 01/28/2013 Inactive albuterol sulfate 1.25 mg/3 mL solution for nebulization RxNorm: 169457 3 Milliliter(s) INH TID 10/29/20122012 Inactive 1 box Cartia XT 180 mg capsule,extended release RxNorm: 714099 1 Capsule(s) PO daily TAKE 1 CAPSULE BY MOUTH AT BEDTIME ..TAKE THIS IN ADDITION TO 240 MG IN THE MORNING 10/29/2012 11/26/2013 Inactive acyclovir 800 mg tablet RxNorm: 213187 1 Tablet(s) PO BID 10/2911/04/2012 Inactive Diflucan 150 mg tablet RxNorm: 021536 1 Tablet(s) PO daily 10/14/2012 Inactive TAKE 1 TABLET BY MOUTH EVERY DAY Toprol XL 100 mg tablet,extended release RxNorm: 937262 1 Tablet(s) PO BID 10/11/2012 09/05/2013 Inactive Zithromax Z-Babak 250 mg tablet RxNorm: 659756 Tablet(s) PO UD as directed. 1 refill , please take back to back 10/05/2012 No Stop Date Active Kenalog 40 mg/mL Susp for Injection RxNorm: 0818989 1 Milliliter(s) Inj QID 09/21/2012 05/07/2013 Inactive fluconazole 150 mg tablet RxNorm: 783139 1 Tablet(s) PO every other day x 5 doses 09/12/2012 11/25/2012 Inactive levothyroxine 50 mcg tablet RxNorm: 006002 1 Tablet(s) PO daily 09/06/2012 12/31/2012 Inactive atorvastatin 40 mg tablet RxNorm: 927531 1 Tablet(s) PO daily 09/06/2012 08/31/2013 Inactive TAKE 1 TABLET BY MOUTH DAILY (THIS IS AN INCREASE IN DOSAGE) Xanax 0.5 mg tablet RxNorm: 927368 Tablet(s) PO TAKE 1/2 TO 1 TABLET BY MOUTH EVERY 8 HOURS NEEDED FOR ANXIETY 08/27/2012 12/26/2012 Inactive (Appended: Controlled substance [facility]Rx refill - [facility]|148962|1|0|1) Zofran 4 mg tablet RxNorm: 719396 1 Tablet(s) PO Q6 PRN 08/1302/10/2013 Inactive Cipro 500 mg tablet RxNorm: 518515 1 Tablet(s) PO BID 201208/07/2012 Inactive Cipro 500 mg tablet RxNorm: 440193 1 Tablet(s) PO BID 201208/12/2012 Inactive Flagyl 500 mg tablet RxNorm: 086912 1 Tablet(s) PO TID 201208/12/2012 Inactive cefdinir 300 mg capsule RxNorm: 904814 1 Capsule(s) PO BID 08/201207/29/2012 Inactive nystatin 100,000 unit/mL Oral Susp RxNorm: 640881 6 Unit(s) PO QID 07/06/2012 07/15/2012 Inactive Kenalog 40 mg/mL Susp for Injection RxNorm: 6748002 1 Milliliter(s) Inj 07/06/2012 07/06/2012 Inactive Zithromax 500 mg tablet RxNorm: 9614629 1 Tablet(s) PO daily 07/10/2012 Inactive metformin 850 mg tablet RxNorm: 841172 1/2 Tablet(s) PO TID 09/201208/24/2012 Inactive TAKE 1 TABLET BY MOUTH IN THE MORNING, 1/2 TABLET AT NOON, AND 1 TABLET IN THE EVENING Lyrica 50 mg capsule RxNorm: 392536 1 Capsule(s) PO TID 201206/25/2012 Inactive Diflucan 150 mg tablet RxNorm: 188203 1 Tablet(s) PO daily 05/201206/25/2012 Inactive TAKE 1 TABLET BY MOUTH EVERY DAY Levaquin 500 mg tablet RxNorm: 330392 1 Tablet(s) PO daily 06/19/2012 Inactive Pneumovax 23 25 mcg/0.5 mL Injection RxNorm: 766478 1/2 Milliliter(s) Inj 06/07/2012 06/07/2012 Inactive metformin 850 mg tablet RxNorm: 686005 1/2 Tablet(s) PO BID 06/25/2012 Inactive TAKE 1 TABLET BY MOUTH IN THE MORNING, 1/2 TABLET AT NOON, AND 1 TABLET IN THE EVENING cefdinir 300 mg capsule RxNorm: 882469 1 Capsule(s) PO BID 02/201305/30/2012 Inactive cefdinir 300 mg capsule RxNorm: 373851 1 Capsule(s) PO BID 02/201306/06/2012 Inactive prednisone 10 mg tablets in a dose pack RxNorm: 233140 Tablet(s) PO UD 6-5-4-3-2- 1 05/31/2012 05/06/2013 Inactive Cipro 500 mg tablet RxNorm: 466674 1 Tablet(s) PO BID 201206/03/2012 Inactive Xanax 0.5 mg tablet RxNorm: 797369 Tablet(s) PO TAKE 1/2 TO 1 TABLET BY MOUTH EVERY 8 HOURS NEEDED FOR ANXIETY 05/28/2012 08/27/2012 Inactive (Appended: Controlled substance eRx refill - RxReferenceNumber: [id number]|1|0|1) Cartia XT 180 mg capsule,extended release RxNorm: 527261 Capsule(s) PO TAKE 1 CAPSULE BY MOUTH AT BEDTIME ..TAKE THIS IN ADDITION TO 240 MG IN THE MORNING 05/24/2012 10/28/2012 Inactive Diflucan 150 mg tablet RxNorm: 013652 1 Tablet(s) PO daily 06/201205/26/2012 Inactive TAKE 1 TABLET BY MOUTH EVERY DAY Cartia XT 240 mg capsule,extended release RxNorm: 080638 1 Capsule(s) PO QAM 05/23/2012 09/06/2012 Inactive in addition to 180mg q pm omeprazole 20 mg capsule,delayed release RxNorm: 608920 Capsule(s) PO TAKE 1 CAPSULE BY MOUTH TWICE DAILY 05/21/2012 Inactive diltiazem ER (XR/XT) 240 mg capsule,extended release, controlled RxNorm: 708986 1 Capsule(s) PO daily TAKE ONE CAPSULE BY MOUTH EVERY DAY 05/21/2012 05/30/2013 Inactive Toprol XL 25 mg tablet,extended release RxNorm: 824244 1 Tablet(s) PO QPM take with 50mg (1/2 tab of 100mg) each evening. Continue 100mg in the morning. 05/17/2012 05/27/2012 Inactive Activella 0.5 mg-0.1 mg tablet RxNorm: 4718734 Tablet(s) PO TAKE 1 TABLET BY MOUTH DAILY FOR MENOPAUSAL SYMPTOM 05/09/2012 05/16/2013 Inactive colestipol 1 gram tablet RxNorm: 7633858 Tablet(s) PO TAKE 1 TABLET BY MOUTH TWICE DAILY 05/08/2012 04/21/2016 Inactive Kenalog 40 mg/mL Susp for Injection RxNorm: 1173295 1 Milliliter(s) Inj 05/02/2012 05/02/2012 Inactive Xanax 0.5 mg tablet RxNorm: 497623 Tablet(s) PO 04/16/2012 05/28/2012 Inactive TAKE 1/2 TO 1 TABLET BY MOUTH EVERY 8 HOURS NEEDED FOR ANXIETY (Appended: Controlled substance eRx refill - RxReferenceNumber: [id number]|1|0|1) Diflucan 150 mg tablet RxNorm: 727105 1 Tablet(s) PO daily 05/22/2012 Inactive TAKE 1 TABLET BY MOUTH EVERY DAY Cipro 500 mg tablet RxNorm: 741547 1 Tablet(s) PO BID 201104/19/2012 Inactive Zithromax Z-Babak 250 mg tablet RxNorm: 022217 Tablet(s) PO UD 05/30/2012 Inactive metformin 850 mg tablet RxNorm: 795953 Tablet(s) PO take one pill by mouth in AM, 1/2 at noon, and 1 pill in the evening. 03/16/2012 06/06/2012 Inactive TAKE 1 TABLET BY MOUTH IN THE MORNING, 1/2 TABLET AT NOON, AND 1 TABLET IN THE EVENING Xanax 0.5 mg tablet RxNorm: 560099 Tablet(s) PO 03/05/2012 04/15/2012 Inactive TAKE 1/2 TO 1 TABLET BY MOUTH EVERY 8 HOURS NEEDED FOR ANXIETY (Appended: Controlled substance eRx refill - RxReferenceNumber: [id number]|1|0|1) potassium chloride ER 10 mEq tablet,extended release RxNorm: 484939 1 Tablet(s) PO QDAY PRN take with lasix 03/05/201204/2013 Inactive potassium chloride ER 10 mEq tablet,extended release RxNorm: 969452 1 Tablet(s) PO QDAY PRN take with lasix 02/28/2012 Inactive Lasix 20 mg tablet RxNorm: 773855 Tablet(s) PO QDAY PRN 02/2708/25/2012 Inactive doxycycline hyclate 100 mg capsule RxNorm: 854268 1 Capsule(s) PO BID 02/27/2012 03/04/2012 Inactive Effexor XR 37.5 mg capsule,extended release RxNorm: 515384 Capsule(s) PO 02/26/2012 01/28/2013 Inactive TAKE 2 CAPSULES BY MOUTH EVERY MORNING AND 1 CAPSULE EVERY NIGHT AT BEDTIME Lomotil 2.5 mg-0.025 mg tablet RxNorm: 0700729 Tablet(s) PO 07/201103/05/2012 Inactive 1 after each loose bm limit 4 per day doxycycline hyclate 100 mg capsule RxNorm: 177681 1 Capsule(s) PO BID 02/15/2012 02/21/2012 Inactive Diflucan 150 mg tablet RxNorm: 967429 Tablet(s) PO daily 201102/21/2012 Inactive TAKE 1 TABLET BY MOUTH EVERY DAY colestipol,micronized 1 gram tablet RxNorm: 7773182 Tablet(s) PO 02/06/2012 04/21/2016 Inactive TAKE 1 TABLET BY MOUTH TWICE DAILY Effexor XR 37.5 mg capsule,extended release RxNorm: 023775 Capsule(s) PO 02/06/2012 02/16/2016 Inactive TAKE 2 CAPSULES BY MOUTH EVERY MORNING AND 1 CAPSULE EVERY NIGHT AT BEDTIME potassium chloride ER 10 mEq tablet,extended release RxNorm: 265687 1 Tablet(s) PO QDAY PRN take with lasix 02/01/201212/2011 Inactive Levaquin 500 mg tablet RxNorm: 474295 1 Tablet(s) PO daily 04/201202/07/2012 Inactive Diflucan 150 mg tablet RxNorm: 426911 Tablet(s) PO 01/27/2012 02/14/2012 Inactive TAKE 1 TABLET BY MOUTH EVERY DAY Effexor XR 37.5 mg capsule,extended release RxNorm: 072671 Capsule(s) PO 01/05/2012 02/05/2012 Inactive TAKE 2 CAPSULES BY MOUTH EVERY MORNING , AND 1 CAPSULE BY MOUTH EVERY NIGHT AT BEDTIME Effexor XR 37.5 mg capsule,extended release RxNorm: 163494 Capsule(s) PO 12/29/2011 01/04/2012 Inactive TAKE 2 CAPSULES BY MOUTH EVERY MORNING , AND 1 CAPSULE BY MOUTH EVERY NIGHT AT BEDTIME Diflucan 150 mg tablet RxNorm: 748713 Tablet(s) PO 12/29/2011 04/09/2012 Inactive TAKE 1 TABLET BY MOUTH EVERY DAY Cipro 500 mg tablet RxNorm: 645183 1 Tablet(s) PO BID 201101/07/2012 Inactive Toprol XL 100 mg tablet,extended release RxNorm: 832649 Tablet(s) PO as doctor directed one tab in am and 1/2 at night 11/30/2011 10/10/2012 Inactive Phenergan 25 mg/mL Injection RxNorm: 020720 Milliliter(s) Inj 11/30/2011 11/30/2011 Inactive Toprol XL 100 mg 24 hr Tab RxNorm: 940467 1.5 Tablet(s) PO as doctor directed one tab in am and 1/2 at night 11/17/201102/2012 Inactive Xopenex HFA 45 mcg/actuation Aerosol Inhaler RxNorm: 917393 2 INH QID 11/08/2011 12/01/2012 Inactive Effexor XR 150 mg 24 hr Cap RxNorm: 153401 1 Capsule(s) PO daily 10/24/2011 01/04/2012 Inactive Xanax 0.5 mg tablet RxNorm: 267307 1/2-1 Tablet(s) PO Q8 PRN 10/20/2011 03/05/2012 Inactive levothyroxine 25 mcg tablet RxNorm: 322675 Tablet(s) PO 201109/05/2012 Inactive TAKE 1 TABLET BY MOUTH DAILY Xanax 0.5 mg Tab RxNorm: 834486 1/2-1 Tablet(s) PO Q8 PRN 09/26/2011 10/19/2011 Inactive potassium chloride ER 10 mEq Tab RxNorm: 855967 1 Tablet(s) PO daily 09/20/2011 09/24/2011 Inactive Lasix 20 mg Tab RxNorm : 217725 1 Tablet(s) PO daily 09/20/2011 09/24/2011 Inactive Xanax 0.5 mg Tab RxNorm: 053696 1/2-1 Tablet(s) PO Q8 PRN 09/12/2011 09/25/2011 Inactive Xanax 0.5 mg Tab RxNorm: 385407 1/2-1 Tablet(s) PO Q8 PRN 08/24/2011 09/11/2011 Inactive Lipitor 20 mg tablet RxNorm: 122756 Tablet(s) PO 08/22/2011 09/05/2012 Inactive TAKE 1 TABLET BY MOUTH DAILY (THIS IS AN INCREASE IN DOSAGE) Cipro 500 mg Tab RxNorm: 517958 1 Tablet(s) PO BID 201110/24/2011 Inactive Flagyl 500 mg Tab RxNorm: 775627 1 Tablet(s) PO TID 201110/24/2011 Inactive Diflucan 150 mg Tab RxNorm: 705413 1 Tablet(s) PO daily 201110/24/2011 Inactive Kenalog 40 mg/mL Susp for Injection RxNorm: 0387099 1 Milliliter(s) Inj 08/01/2011 10/24/2011 Inactive FreeStyle Lancets RxNorm: 1 test Miscellaneous TID 201107/08/2014 Inactive dispense quantity sufficient for three times daily testing for diabetes FreeStyle Test Strips RxNorm: 1 Miscellaneous BID 07/21/2011 08/13/2012 Inactive please give lancets alsodx 250.02 Xanax 0.25 mg Tab RxNorm: 982666 1 Tablet(s) PO Q8 PRN 07/06 No Stop Date Active colestipol 1 gram Tab RxNorm: 9992032 Tablet(s) PO 07/04/2011 04/21/2016 Inactive TAKE 1 TABLET BY MOUTH TWICE DAILY DIRECTED colestipol 1 gram tablet RxNorm: 5133868 1 Tablet(s) PO BID 07/03/2011 Inactive Cartia XT 180 mg capsule,extended release RxNorm: 920010 1 Capsule(s) PO QHS 06/30/2011 11/16/2011 Inactive in addition to 240mg q am venlafaxine 37.5 mg Tab RxNorm: 712424 1 Tablet(s) PO BID 06/2406/29/2011 Inactive prednisone 5 mg Tab RxNorm: 287051 Tablet(s) PO UD 2011 10/24/2011 Inactive six day taper #21 Lyrica 50 mg capsule RxNorm: 940129 1 Capsule(s) PO TID 201108/18/2011 Inactive Diflucan 150 mg tablet RxNorm: 797180 1 Tablet(s) PO daily 06/24/2011 Inactive levofloxacin 500 mg Tab RxNorm: 701062 1 Tablet(s) PO daily 08/15/2011 Inactive azithromycin 250 mg Tab RxNorm: 497082 PO 05/23/2011 06/20/2011 Inactive omeprazole 20 mg capsule,delayed release RxNorm: 563686 Capsule(s) PO 05/10/2011 05/20/2012 Inactive TAKE 1 CAPSULE BY MOUTH TWICE DAILY;Patient requests 90 day supply diltiazem ER (XR/XT) 240 mg capsule,extended release, controlled RxNorm: 194884 Capsule(s) PO 04/19/2011 05/21/2012 Inactive TAKE 1 CAPSULE BY MOUTH EVERY MORNING;Patient requests 90 day supply Kenalog 40 mg/mL Susp for Injection RxNorm: 6603522 1 Milliliter(s) Inj 04/18/2011 06/20/2011 Inactive clindamycin 300 mg Cap RxNorm: 091765 1 Capsule(s) PO BID 04/1806/20/2011 Inactive lisinopril-hydrochlorothiazide 20 mg-12.5 mg Tab RxNorm: 602233 2 Tablet(s) PO daily 04/18/2011 10/24/2011 Inactive fluconazole 150 mg Tab RxNorm: 465333 1 Tablet(s) PO daily 07/201006/20/2011 Inactive Activella 0.5 mg-0.1 mg tablet RxNorm: 3325768 Tablet(s) PO 05/201005/08/2012 Inactive TAKE 1 TABLET BY MOUTH DAILY FOR MENOPAUSAL SYMPTOM diltiazem ER (XR/XT) 240 mg Continuous Release Cap RxNorm: 864208 1 Capsule(s) PO daily 03/17/2011 03/16/2011 Inactive diltiazem ER (XR/XT) 240 mg Continuous Release Cap RxNorm: 012522 Capsule(s) PO 03/17/2011 06/20/2011 Inactive TAKE 1 CAPSULE BY MOUTH EVERY MORNING metformin 850 mg tablet RxNorm: 386012 1 Tablet(s) PO as doctor directed take one pill by mouth in AM, 1/2 at noon, and 1 pill in the evening. 01/21/2011 04/20/2011 Inactive Xopenex 1.25 mg/3 mL solution for nebulization RxNorm: 231079 3 Milliliter(s) INH Q6 PRN No Start Date Active Novolog Flexpen U-100 Insulin aspart 100 unit/mL subcutaneous RxNorm: 4744007 10 units with meals plus SSI in [...] 301-325 Lomotil 2.5 mg-0.025 mg tablet RxNorm: 2486422 Tablet(s) PO No Start Date 02/21/2012 Inactive 1 after each loose bm limit 4 per day Novolog Flexpen U-100 Insulin aspart 100 unit/mL subcutaneous RxNorm: 1358859 10 Unit(s) SQ AC No Start Date 10/26 Inactive with sliding scale-Dr Raines Tresiba FlexTouch U-100 100 unit/mL (3 mL) subcutaneous insulin pen RxNorm: 6513111 40 Unit(s) SQ daily No Start Date Inactive gabapentin 600 mg tablet RxNorm: 044182 1 Tablet(s) PO TID No Start Date 06/26/2013 Inactive Effexor XR 37.5 mg capsule,extended release RxNorm: 544307 1 Capsule(s) PO BID No Start Date 10/23/2011 Inactive Levemir FlexTouch 100 unit/mL (3 mL) subcutaneous insulin pen RxNorm: 643230 50 Unit(s) SQ BID No Start Date 04/24/2017 Inactive Combivent Respimat 20 mcg-100 mcg/actuation solution for inhalation RxNorm: 6449325 1 INH QID No Start Date 05/11/2014 Inactive Xanax 0.5 mg Tab RxNorm: 056529 1/2-1 Tablet(s) PO Q8 PRN No Start Date 08/23/2011 Inactive Xopenex HFA 45 mcg/actuation Aerosol Inhaler RxNorm: 114826 2 INH QID No Start Date 11/07/2011 Inactive promethazine 25 mg tablet RxNorm: 551099 1 Tablet(s) PO Q8 as needed No Start Date 08/12/2015 Inactive colestipol 1 gram Tab RxNorm: 8602742 1 Tablet(s) PO BID No Start Date 07/03/2011 Inactive Cartia XT 240 mg capsule,extended release RxNorm: 579212 1 Capsule(s) PO QAM No Start Date 05/22/2012 Inactive in addition to 180mg q pm Lipitor 20 mg Tab RxNorm: 515150 1 Tablet(s) PO daily No Start Date 08/21/2011 Inactive FreeStyle Test Strips RxNorm: 1 Miscellaneous BID No Start Date 07/20/2011 Inactive Toumary SoloStar U-300 Insulin 300 unit/mL (1.5 mL) subcutaneous pen RxNorm: 1650617 40 Unit(s) SQ BID No Start Date 10/26/2017 Inactive Diflucan 150 mg tablet RxNorm: 551494 1 Tablet(s) PO daily 1 pill po every other day x 8 doses No Start Date 03/18/2013 Inactive hydrocodone 5 mg-acetaminophen 500 mg tablet RxNorm: 069809 1 Tablet(s) PO Q6 PRN No Start Date 01/28/2013 Inactive Lasix 20 mg tablet RxNorm: 573945 Tablet(s) PO QDAY PRN No Start Date 02/27/2012 Inactive Promethazine VC 6.25 mg-5 mg/5 mL Syrup RxNorm: 1326965 1-2 PO Q6 PRN No Start Date 10/07/2013 Inactive promethazine 25 mg tablet RxNorm: 012949 1 Tablet(s) PO Q6 PRN No Start Date 02/09/2017 Inactive digoxin 125 mcg tablet RxNorm: 420072 1 Tablet(s) PO daily No Start Date 06/20/2017 Inactive Xanax 0.25 mg Tab RxNorm: 512440 1 Tablet(s) PO Q8 PRN No Start Date 07/05/2011 Inactive Diflucan 150 mg tablet RxNorm: 112500 1 Tablet(s) PO every other day x 4 doses No Start Date 04/09/2014 Inactive Carafate 100 mg/mL Oral Susp RxNorm: 562727 2 Teaspoon(s) PO daily No Start Date 10/24/2011 Inactive prednisone 5 mg Tab RxNorm: 827086 Tablet(s) PO UD No Start Date 06/22/2011 Inactive six day taper #21 Tessalon Perles 100 mg capsule RxNorm: 142167 2 Capsule(s) PO TID as needed No Start Date 05/16/2017 Inactive Bactroban 2 % topical ointment RxNorm: 107741 1 Application TOP BID No Start Date 09/26/2013 Inactive Phenergan 25 mg tablet RxNorm: 056050 1 Tablet(s) PO Q8 as needed nausea No Start Date 06/28/2015 Inactive flecainide 50 mg tablet RxNorm: 253113 1 Tablet(s) PO BID No Start Date 02/01/2016 Inactive Activella 0.5 mg-0.1 mg Tab RxNorm: 7337635 1 Tablet(s) PO daily No Start Date 03/21/2011 Inactive hydrocodone 10 mg-acetaminophen 325 mg tablet RxNorm: 671169 1 Tablet(s) PO Q6 as needed No Start Date 02/04/2016 Inactive lisinopril 20 mg Tab RxNorm: 140369 1 Tablet(s) PO daily No Start Date 06/20/2011 Inactive prednisone 10 mg tablets in a dose pack RxNorm: 635340 Tablet(s) PO UD 6-5-4-3-2- 1 No Start Date 05/30/2012 Inactive hydrocodone 7.5 mg-acetaminophen 325 mg tablet RxNorm: 481351 1 Tablet(s) PO Q6 PRN No Start Date 10/06/2013 Inactive hyoscyamine 0.125 mg sublingual tablet RxNorm: 0301974 1 Tablet(s) SL TID as needed No Start Date 05/16/2017 Inactive Cartia XT 180 mg 24 hr Cap RxNorm: 176544 1 Capsule(s) PO QHS No Start Date 06/29/2011 Inactive in addition to 240mg q am Zofran 4 mg tablet RxNorm: 345511 1 Tablet(s) PO Q6 PRN No Start Date 08/12/2012 Inactive omeprazole 20 mg Cap, Delayed Release RxNorm: 469592 1 Capsule(s) PO BID No Start Date 05/09/2011 Inactive venlafaxine 37.5 mg Tab RxNorm: 959568 1 Tablet(s) PO BID No Start Date 10/24/2011 Inactive Vesicare 10 mg tablet RxNorm: 349486 1 Tablet(s) PO daily No Start Date 09/28/2015 Inactive levothyroxine 25 mcg Tab RxNorm: 545128 1 Tablet(s) PO daily No Start Date 10/18/2011 Inactive Zithromax Z-Babak 250 mg tablet RxNorm: 614664 Tablet(s) PO UD No Start Date 04/01/2012 Inactive Januvia 100 mg tablet RxNorm: 885783 1 Tablet(s) PO daily No Start Date 05/22/2013 Inactive Lantus Solostar 100 unit/mL (3 mL) subcutaneous insulin pen RxNorm: 996803 Unit( s) SQ No Start Date 04/17/2017 Inactive 10 units q am and 50units at night fluconazole 150 mg tablet RxNorm: 843495 1 Tablet(s) PO every other day x 5 doses No Start Date 09/11/2012 Inactive Toprol XL 25 mg 24 hr Tab RxNorm: 110683 1 Tablet(s) PO daily No Start Date 11/16/2011 Inactive Medication Administered Medication Codes Instructions Start Date Status Kenalog 40 mg/mL suspension for injection RxNorm: 0906332 Milliliter 06/26/2015 No longer Active Kenalog 40 mg/mL suspension for injection RxNorm: 5436605 Milliliter 05/07/2013 No longer Active Kenalog 40 mg/mL Susp for Injection RxNorm: 6052657 1Milliliter 07/06/2012 No longer Active Pneumovax 23 25 mcg/0.5 mL Injection RxNorm: 407420 1/2Milliliter 06/07/2012 No longer Active Kenalog 40 mg/mL Susp for Injection RxNorm: 7828733 1Milliliter 05/02/2012 No longer Active Phenergan 25 mg/mL Injection RxNorm: 770583 Milliliter 11/30/2011 No longer Active Immunizations Vaccine Codes Date Status Pneumococcal (Adult) CVX: 133 02/26/2016 completed PPD Unknown 12/25/2014 completed PPD Unknown 09/27/2013 completed Pneumococcal CVX: 33 06/07/2012 completed Pneumococcal (Adult) CVX: 33 06/07/2012 completed Assessments Condition Codes Effective Dates Essential (primary) hypertension ICD-10: I10 ICD-9: 401.1 03/12/2018 Type 2 diabetes mellitus with hyperglycemia ICD-10: E11.65 ICD-9: 250.00 03/12/2018 Generalized anxiety disorder ICD-10: F41.1 ICD-9: 300.02 03/12/2018 Low back pain ICD-10: M54.5 ICD-9: 724.2 [...] Visit Reason For Visit Effective Dates Notes gait abnormality 03/12/2018 dysuria 02/20/2018 diabetes mellitus [...] 26.2 pg 02/20/2018 Cbc With Differential Ord2 [place]% 5.7 % 02/20/2018 Cbc With Differential Ord2 [...] 1.61 K/ul 02/20/2018 Cbc With Differential Ord2 [place] ABS# 0.5 K/ul 02/20/2018 Cbc With Differential Ord2 Eos ABS# 0.1 K/ul 02/20/2018 Cbc With Differential Ord2 Baso ABS# 0.0 K/ul 02/20/2018 Comp Metabolic You260 NA 134 mEq/L 02/20/2018 Comp Metabolic Vfk483 K 3.9 mEq/L 02/20/2018 Comp Metabolic Rdc149 CL 90 mEq/L 02/20/2018 Comp Metabolic Urv192 CO2 32.0 mEq/L 02/20/2018 Comp Metabolic Ydo718 ANION GAP 16 02/20/2018 Comp Metabolic Yso556 GLUCOSE 287 mg/dL 02/20/2018 Comp Metabolic Iul803 Creat 0.8 mg/dL 02/20/2018 Comp Metabolic Sry728 eGFR 72 ml/min/1.73m2 02/20/2018 Comp Metabolic Ivu633 BUN 13 mg/dL 02/20/2018 Comp Metabolic Pot450 B/C Ratio 15.5 Ratio 02/20/2018 Comp Metabolic Wfm474 CALCIUM 9.0 mg/dL 02/20/2018 Comp Metabolic Sth929 ALK PHOS 120 U/L 02/20/2018 Comp Metabolic Eab094 AST(SGOT) 21 U/L 02/20/2018 Comp Metabolic Hrq773 ALT(SGPT) 17 U/L 02/20/2018 Comp Metabolic Mqw867 BILI T 0.4 mg/dL 02/20/2018 Comp Metabolic Jgr062 ALBUMIN 3.8 g/dL 02/20/2018 Comp Metabolic Kfc331 TPRO 6.9 g/dL 02/20/2018 Comp Metabolic Aug902 GLOB 3.1 g/dL 02/20/2018 Comp Metabolic Itk458 A/G Ratio 1.3 Ratio 02/20/2018 Comp Metabolic Isj775 Osmo 279 mOsmo 02/20/2018 Vitamin D 25 Oh Ecd0717 VITAMIN D, 25 HYDROXY 26.48 ng/mL Digoxin Ord9 DIGOXIN 0.7 NG/ML 02/20/2018 Culture Urine [id number] URINE CULTURE SEE NOTES 12/01/2017 Urine Culture Ucult Complete >100,000 col/ml aerobic growth sent to ref lab 11/29/2017 Comp Metabolic Qvi667 NA 135 mEq/L 08/21/2017 Comp Metabolic Wdi689 K 4.6 mEq/L 08/21/2017 Comp Metabolic Cuc015 CL 92 mEq/L 08/21/2017 Comp Metabolic Qxp412 CO2 32.0 mEq/L 08/21/2017 Comp Metabolic Lef352 ANION GAP 16 08/21/2017 Comp Metabolic Wzv680 GLUCOSE 298 mg/dL 08/21/2017 Comp Metabolic Ryn795 Creat 1.1 mg/dL 08/21/2017 Comp Metabolic Enb089 eGFR 54 ml/min/1.73m2 08/21/2017 Comp Metabolic Tlh696 BUN 22 mg/dL 08/21/2017 Comp Metabolic Vmj013 B/C Ratio 20.6 Ratio 08/21/2017 Comp Metabolic Ggv127 CALCIUM 9.3 mg/dL 08/21/2017 Comp Metabolic Qog642 ALK PHOS 145 U/L 08/21/2017 Comp Metabolic Ftd819 AST(SGOT) 31 U/L 08/21/2017 Comp Metabolic Gol377 ALT(SGPT) 19 U/L 08/21/2017 Comp Metabolic Egq881 BILI T 0.3 mg/dL 08/21/2017 Comp Metabolic Syz614 ALBUMIN 3.8 g/dL 08/21/2017 Comp Metabolic Crz711 TPRO 7.1 g/dL 08/21/2017 Comp Metabolic Rau667 GLOB 3.3 g/dL 08/21/2017 Comp Metabolic Fnq986 A/G Ratio 1.2 Ratio 08/21/2017 Comp Metabolic Itl928 Osmo 285 mOsmo 08/21/2017 Cbc With Differential [...] 27.9 pg 08/18/2017 Cbc With Differential Ord2 [place]% 6.9 % 08/18/2017 Cbc With Differential Ord2 [...] 2.05 K/ul 08/18/2017 Cbc With Differential Ord2 [place] ABS# 0.7 K/ul 08/18/2017 Cbc With Differential Ord2 Eos ABS# 0.3 K/ul 08/18/2017 Cbc With Differential Ord2 Baso ABS# 0.0 K/ul 08/18/2017 %Hba1C Wzs745 % HbA1c 54224-1 11.5 % 06/13/2017 %Hba1C Zmi593 Gluc Ave 283 mg/dL 06/13/2017 Cbc With [...] 20.0 % 03/27/2017 Cbc With Differential Ord2 [place]% 7.2 % 03/27/2017 Cbc With Differential Ord2 [...] 2.11 K/ul 03/27/2017 Cbc With Differential Ord2 [place] ABS# 0.8 K/ul 03/27/2017 Cbc With Differential Ord2 Eos ABS# 0.2 K/ul 03/27/2017 Cbc With Differential Ord2 Baso ABS# 0.0 K/ul 03/27/2017 Digoxin Ord9 DIGOXIN 0.5 NG/ML 03/27/2017 Comp Metabolic Sbs026 NA 136 mEq/L 03/27/2017 Comp Metabolic Joh948 K 4.1 mEq/L 03/27/2017 Comp Metabolic Czo592 CL 90 mEq/L 03/27/2017 Comp Metabolic Wfs049 CO2 34.0 mEq/L 03/27/2017 Comp Metabolic Kib253 ANION GAP 16 03/27/2017 Comp Metabolic Rbl361 GLUCOSE 325 mg/dL 03/27/2017 Comp Metabolic Qst938 Creat 1.0 mg/dL 03/27/2017 Comp Metabolic Znn668 eGFR 62 ml/min/1.73m2 03/27/2017 Comp Metabolic Hny401 BUN 15 mg/dL 03/27/2017 Comp Metabolic Dsn635 B/C Ratio 15.8 Ratio 03/27/2017 Comp Metabolic Trz492 CALCIUM 9.5 mg/dL 03/27/2017 Comp Metabolic Syw706 ALK PHOS 159 U/L 03/27/2017 Comp Metabolic Fwo505 AST(SGOT) 57 U/L 03/27/2017 Comp Metabolic Riq400 ALT(SGPT) 32 U/L 03/27/2017 Comp Metabolic Joc617 BILI T 0.4 mg/dL 03/27/2017 Comp Metabolic Ign837 ALBUMIN 4.3 g/dL 03/27/2017 Comp Metabolic Ggh569 TPRO 7.3 g/dL 03/27/2017 Comp Metabolic Zjx848 GLOB 3.0 g/dL 03/27/2017 Comp Metabolic Yzl979 A/G Ratio 1.4 Ratio 03/27/2017 Comp Metabolic Iqv435 Osmo 285 mOsmo 03/27/2017 Magnesium Ord90 Mag 2.4 mg/dL 02/27/2017 Comp Metabolic Irx240 NA 138 mEq/L 02/27/2017 Comp Metabolic Xig031 K 4.2 mEq/L 02/27/2017 Comp Metabolic Ndx513 CL 91 mEq/L 02/27/2017 Comp Metabolic Zch230 CO2 36.0 mEq/L 02/27/2017 Comp Metabolic Hnt938 ANION GAP 15 02/27/2017 Comp Metabolic Gso458 GLUCOSE 297 mg/dL 02/27/2017 Comp Metabolic Ckh993 Creat 0.9 mg/dL 02/27/2017 Comp Metabolic Mbz470 eGFR 71 ml/min/1.73m2 02/27/2017 Comp Metabolic Kjj302 BUN 12 mg/dL 02/27/2017 Comp Metabolic Rhi764 B/C Ratio 14.1 Ratio 02/27/2017 Comp Metabolic Unq356 CALCIUM 9.0 mg/dL 02/27/2017 Comp Metabolic Wxv696 ALK PHOS 146 U/L 02/27/2017 Comp Metabolic Tja129 AST(SGOT) 28 U/L 02/27/2017 Comp Metabolic Cwe299 ALT(SGPT) 12 U/L 02/27/2017 Comp Metabolic Vqw719 BILI T 0.3 mg/dL 02/27/2017 Comp Metabolic Cik306 ALBUMIN 3.8 g/dL 02/27/2017 Comp Metabolic Ngh809 TPRO 6.6 g/dL 02/27/2017 Comp Metabolic Pos476 GLOB 2.8 g/dL 02/27/2017 Comp Metabolic Gjh923 A/G Ratio 1.3 Ratio 02/27/2017 Comp Metabolic Ojx391 Osmo 286 mOsmo 02/27/2017 Digoxin Ord9 DIGOXIN <0.2 NG/ML 02/14/2017 Comp Metabolic Mgk431 NA 138 mEq/L 02/14/2017 Comp Metabolic Vam178 K 3.5 mEq/L 02/14/2017 Comp Metabolic Pei229 CL 95 mEq/L 02/14/2017 Comp Metabolic Hhq272 CO2 29.0 mEq/L 02/14/2017 Comp Metabolic Nau304 ANION GAP 18 02/14/2017 Comp Metabolic Kav100 GLUCOSE 254 mg/dL 02/14/2017 Comp Metabolic Efq455 Creat 1.0 mg/dL 02/14/2017 Comp Metabolic Llz445 eGFR 62 ml/min/1.73m2 02/14/2017 Comp Metabolic Izm141 BUN 14 mg/dL 02/14/2017 Comp Metabolic Rnj117 B/C Ratio 14.6 Ratio 02/14/2017 Comp Metabolic Hir986 CALCIUM 8.6 mg/dL 02/14/2017 Comp Metabolic Qam722 ALK PHOS 155 U/L 02/14/2017 Comp Metabolic Gux103 AST(SGOT) 42 U/L 02/14/2017 Comp Metabolic Qks996 ALT(SGPT) 28 U/L 02/14/2017 Comp Metabolic Gjz040 BILI T 0.3 mg/dL 02/14/2017 Comp Metabolic Vqq989 ALBUMIN 3.6 g/dL 02/14/2017 Comp Metabolic Eiz420 TPRO 6.2 g/dL 02/14/2017 Comp Metabolic Aqn780 GLOB 2.6 g/dL 02/14/2017 Comp Metabolic Rjh698 A/G Ratio 1.4 Ratio 02/14/2017 Comp Metabolic Zpo839 Osmo 285 mOsmo 02/14/2017 Vitamin D 25 Oh Pvr3897 VITAMIN D, 25 HYDROXY 8.99 ng/mL Tsh [...] 28.0 pg 01/16/2017 Cbc With Differential Ord2 [place]% 7.3 % 01/16/2017 Cbc With Differential Ord2 [...] 1.42 K/ul 01/16/2017 Cbc With Differential Ord2 [place] ABS# 0.6 K/ul 01/16/2017 Cbc With Differential Ord2 Eos ABS# 0.1 K/ul 01/16/2017 Cbc With Differential Ord2 Baso ABS# 0.0 K/ul 01/16/2017 Sed Rate Ord21 ESR 33 mm/hr 01/16/2017 C-Reactive Protein Qnt Crqnt CRP 3.3 mg/dl 01/16/2017 Free T4 Psb121 FREE T4 0.81 ng/dL 01/16/2017 %Hba1C Aeo421 % HbA1c 85722-0 12.4 % 01/16/2017 %Hba1C Xjj493 Gluc Ave 309 mg/dL 01/16/2017 Comp Metabolic Dyo503 NA 134 mEq/L 01/16/2017 Comp Metabolic Pxr921 K 4.0 mEq/L 01/16/2017 Comp Metabolic Evf123 CL 89 mEq/L 01/16/2017 Comp Metabolic Alg704 CO2 30.0 mEq/L 01/16/2017 Comp Metabolic Ycv789 ANION GAP 19 01/16/2017 Comp Metabolic Vjg194 GLUCOSE 496 Result Verified By Repeat Analysis mg/dL 01/16/2017 Comp Metabolic Jhh079 Creat 0.8 mg/dL 01/16/2017 Comp Metabolic Siv873 eGFR 73 ml/min/1.73m2 01/16/2017 Comp Metabolic Jxf938 BUN 13 mg/dL 01/16/2017 Comp Metabolic Ctf368 B/C Ratio 15.7 Ratio 01/16/2017 Comp Metabolic Ejb036 CALCIUM 8.8 mg/dL 01/16/2017 Comp Metabolic Vvu971 ALK PHOS 171 U/L 01/16/2017 Comp Metabolic Yny942 AST(SGOT) 54 U/L 01/16/2017 Comp Metabolic Mtb279 ALT(SGPT) 32 U/L 01/16/2017 Comp Metabolic Apa852 BILI T 0.3 mg/dL 01/16/2017 Comp Metabolic Xbn207 ALBUMIN 3.9 g/dL 01/16/2017 Comp Metabolic Axz084 TPRO 6.5 g/dL 01/16/2017 Comp Metabolic Odj168 GLOB 2.6 g/dL 01/16/2017 Comp Metabolic Gzu250 A/G Ratio 1.5 Ratio 01/16/2017 Comp Metabolic Jkl713 Osmo 290 mOsmo 01/16/2017 Manual Differential Ord52 D-Neutr 62 % 09/14/2016 Manual Differential Ord52 D-[place] 1 % 09/14/2016 Manual Differential Ord52 D-Lymph 34 % 09/14/2016 Manual Differential Ord52 D-Eos 2 % 09/14/2016 Manual Differential Ord52 D-[place] 1 % 09/14/2016 Comp Metabolic Qbx495 NA 135 mEq/L 09/14/2016 Comp Metabolic Vry604 K 5.2 mEq/L 09/14/2016 Comp Metabolic Ark671 CL 93 mEq/L 09/14/2016 Comp Metabolic Zdm349 CO2 26.0 mEq/L 09/14/2016 Comp Metabolic Rzi184 ANION GAP 21 09/14/2016 Comp Metabolic Cyk261 GLUCOSE 326 mg/dL 09/14/2016 Comp Metabolic Bsi000 Creat 1.0 mg/dL 09/14/2016 Comp Metabolic Tot015 eGFR 57 ml/min/1.73m2 09/14/2016 Comp Metabolic Wmy447 BUN 16 mg/dL 09/14/2016 Comp Metabolic Rfq188 B/C Ratio 15.5 Ratio 09/14/2016 Comp Metabolic Eau855 CALCIUM 9.2 mg/dL 09/14/2016 Comp Metabolic Jzp890 ALK PHOS 160 U/L 09/14/2016 Comp Metabolic Ito104 AST(SGOT) 49 U/L 09/14/2016 Comp Metabolic Waa445 ALT(SGPT) 32 U/L 09/14/2016 Comp Metabolic Ggf124 BILI T 0.4 mg/dL 09/14/2016 Comp Metabolic Ukj120 ALBUMIN 4.0 g/dL 09/14/2016 Comp Metabolic Alk678 TPRO 7.3 g/dL 09/14/2016 Comp Metabolic Iag856 GLOB 3.3 g/dL 09/14/2016 Comp Metabolic Ebb470 A/G Ratio 1.2 Ratio 09/14/2016 Comp Metabolic Chm979 Osmo 284 mOsmo 09/14/2016 Cbc With Differential [...] 28.2 pg 09/14/2016 Cbc With Differential Ord2 [place]% 6.2 % 09/14/2016 Cbc With Differential Ord2 [...] 2.09 K/ul 09/14/2016 Cbc With Differential Ord2 [place] ABS# 0.7 K/ul 09/14/2016 Cbc With Differential Ord2 Eos ABS# 0.2 K/ul 09/14/2016 Cbc With Differential Ord2 Baso ABS# 0.3 K/ul 09/14/2016 %Hba1C Wsx177 % HbA1c 77922-6 10.7 % 09/14/2016 %Hba1C Bfg062 Gluc Ave 260 mg/dL 09/14/2016 Comp Metabolic Kai298 NA 134 mEq/L 08/10/2016 Comp Metabolic Klk367 K 5.0 mEq/L 08/10/2016 Comp Metabolic Mzc240 CL 91 mEq/L 08/10/2016 Comp Metabolic Ibd546 CO2 29.0 mEq/L 08/10/2016 Comp Metabolic Xuc504 ANION GAP 19 08/10/2016 Comp Metabolic Xir421 GLUCOSE 291 mg/dL 08/10/2016 Comp Metabolic Nlv340 Creat 0.9 mg/dL 08/10/2016 Comp Metabolic Dft072 eGFR 68 ml/min/1.73m2 08/10/2016 Comp Metabolic Gzn259 BUN 20 mg/dL 08/10/2016 Comp Metabolic Ydx152 B/C Ratio 22.7 Ratio 08/10/2016 Comp Metabolic Vjq364 CALCIUM 9.7 mg/dL 08/10/2016 Comp Metabolic Wpk553 ALK PHOS 144 U/L 08/10/2016 Comp Metabolic Ioo186 AST(SGOT) 62 U/L 08/10/2016 Comp Metabolic Pmi365 ALT(SGPT) 37 U/L 08/10/2016 Comp Metabolic Vaw421 BILI T 0.3 mg/dL 08/10/2016 Comp Metabolic Vzk285 ALBUMIN 4.3 g/dL 08/10/2016 Comp Metabolic Sdr558 TPRO 7.3 g/dL 08/10/2016 Comp Metabolic Xem145 GLOB 3.0 g/dL 08/10/2016 Comp Metabolic Upr240 A/G Ratio 1.5 Ratio 08/10/2016 Comp Metabolic Xiz022 Osmo 282 mOsmo 08/10/2016 Free T4 Bcw167 FREE T4 0.89 ng/dL 08/09/2016 Tsh Ord6 [...] 17.7 % 08/09/2016 Cbc With Differential Ord2 [place]% 5.4 % 08/09/2016 Cbc With Differential Ord2 [...] 2.46 K/ul 08/09/2016 Cbc With Differential Ord2 [place] ABS# 0.8 K/ul 08/09/2016 Cbc With Differential [...] 27.3 pg 04/20/2016 Cbc With Differential Ord2 [place]% 6.3 % 04/20/2016 Cbc With Differential Ord2 [...] 2.63 K/ul 04/20/2016 Cbc With Differential Ord2 [place] ABS# 0.6 K/ul 04/20/2016 Cbc With Differential Ord2 Eos ABS# 0.2 K/ul 04/20/2016 Cbc With Differential Ord2 Baso ABS# 0.0 K/ul 04/20/2016 Comp Metabolic Eln100 NA 133 mEq/L 04/11/2016 Comp Metabolic Lzd461 K 4.1 mEq/L 04/11/2016 Comp Metabolic Tyv925 CL 92 mEq/L 04/11/2016 Comp Metabolic Awi944 CO2 30.0 mEq/L 04/11/2016 Comp Metabolic Xpv077 ANION GAP 15 04/11/2016 Comp Metabolic Zdj562 GLUCOSE 414 mg/dL 04/11/2016 Comp Metabolic Cjv055 Creat 0.9 mg/dL 04/11/2016 Comp Metabolic Ycm502 eGFR 65 ml/min/1.73m2 04/11/2016 Comp Metabolic Xbi425 BUN 22 mg/dL 04/11/2016 Comp Metabolic Wxa519 B/C Ratio 23.9 Ratio 04/11/2016 Comp Metabolic Bmw649 CALCIUM 9.2 mg/dL 04/11/2016 Comp Metabolic Zdx000 ALK PHOS 145 U/L 04/11/2016 Comp Metabolic Ucr526 AST(SGOT) 22 U/L 04/11/2016 Comp Metabolic Cxt378 ALT(SGPT) 21 U/L 04/11/2016 Comp Metabolic Wzg851 BILI T 0.3 mg/dL 04/11/2016 Comp Metabolic Jwo027 ALBUMIN 3.9 g/dL 04/11/2016 Comp Metabolic Gaw505 TPRO 6.8 g/dL 04/11/2016 Comp Metabolic Uwl186 GLOB 3.0 g/dL 04/11/2016 Comp Metabolic Cmd696 A/G Ratio 1.3 Ratio 04/11/2016 Comp Metabolic Eqc946 Osmo 287 mOsmo 04/11/2016 Cbc With Differential [...] 88.9 fl 04/11/2016 Cbc With Differential Ord2 [place]% 6.9 % 04/11/2016 Cbc With Differential Ord2 [...] 2.09 K/ul 04/11/2016 Cbc With Differential Ord2 [place] ABS# 0.7 K/ul 04/11/2016 Cbc With Differential Ord2 Eos ABS# 0.2 K/ul 04/11/2016 Cbc With Differential Ord2 Baso ABS# 0.0 K/ul 04/11/2016 Comp Metabolic Qlj122 NA 136 mEq/L 02/26/2016 Comp Metabolic Xdy676 K 3.9 mEq/L 02/26/2016 Comp Metabolic Tun033 CL 95 mEq/L 02/26/2016 Comp Metabolic Tkp850 CO2 29.0 mEq/L 02/26/2016 Comp Metabolic Gal057 ANION GAP 16 02/26/2016 Comp Metabolic Pwp059 GLUCOSE 277 mg/dL 02/26/2016 Comp Metabolic Yff824 Creat 0.7 mg/dL 02/26/2016 Comp Metabolic Rnf921 eGFR 88 ml/min/1.73m2 02/26/2016 Comp Metabolic Iua681 BUN 11 mg/dL 02/26/2016 Comp Metabolic Qee815 B/C Ratio 15.5 Ratio 02/26/2016 Comp Metabolic Xys249 CALCIUM 8.8 mg/dL 02/26/2016 Comp Metabolic Pyo123 ALK PHOS 119 U/L 02/26/2016 Comp Metabolic Coq938 AST(SGOT) 25 U/L 02/26/2016 Comp Metabolic Qnz870 ALT(SGPT) 20 U/L 02/26/2016 Comp Metabolic Ual617 BILI T 0.3 mg/dL 02/26/2016 Comp Metabolic Gnc075 ALBUMIN 3.8 g/dL 02/26/2016 Comp Metabolic Mps197 TPRO 6.6 g/dL 02/26/2016 Comp Metabolic Udi992 GLOB 2.8 g/dL 02/26/2016 Comp Metabolic Nrr032 A/G Ratio 1.3 Ratio 02/26/2016 Comp Metabolic Kds241 Osmo 281 mOsmo 02/26/2016 Cbc With Differential [...] 22.4 % 02/26/2016 Cbc With Differential Ord2 [place]% 6.4 % 02/26/2016 Cbc With Differential Ord2 [...] 2.78 K/ul 02/26/2016 Cbc With Differential Ord2 [place] ABS# 0.8 K/ul 02/26/2016 Cbc With Differential Ord2 Eos ABS# 0.2 K/ul 02/26/2016 Cbc With Differential Ord2 Baso ABS# 0.1 K/ul 02/26/2016 %Hba1C Dho600 % HbA1c 70832-8 9.6 % 02/26/2016 %Hba1C Yko879 Gluc Ave 229 mg/dL 02/26/2016 Comp Metabolic Rpp246 NA 138 mEq/L 11/10/2015 Comp Metabolic Tbe052 K 4.5 mEq/L 11/10/2015 Comp Metabolic Wrj801 CL 99 mEq/L 11/10/2015 Comp Metabolic Ned953 CO2 34.0 mEq/L 11/10/2015 Comp Metabolic Vza759 ANION GAP 10 11/10/2015 Comp Metabolic Amu985 GLUCOSE 167 mg/dL 11/10/2015 Comp Metabolic Zfg789 Creat 0.8 mg/dL 11/10/2015 Comp Metabolic Szd801 eGFR 78 ml/min/1.73m2 11/10/2015 Comp Metabolic Jpy026 BUN 22 mg/dL 11/10/2015 Comp Metabolic Cxt752 B/C Ratio 27.8 Ratio 11/10/2015 Comp Metabolic Ahy098 CALCIUM 8.5 mg/dL 11/10/2015 Comp Metabolic Zia713 ALK PHOS 130 U/L 11/10/2015 Comp Metabolic Eat498 AST(SGOT) 56 U/L 11/10/2015 Comp Metabolic Fun322 ALT(SGPT) 51 U/L 11/10/2015 Comp Metabolic Mkp506 BILI T 0.5 mg/dL 11/10/2015 Comp Metabolic Rqa001 ALBUMIN 3.5 g/dL 11/10/2015 Comp Metabolic Jut474 TPRO 5.8 g/dL 11/10/2015 Comp Metabolic Tqj698 GLOB 2.3 g/dL 11/10/2015 Comp Metabolic Rty594 A/G Ratio 1.5 Ratio 11/10/2015 Comp Metabolic Qim234 Osmo 283 mOsmo 11/10/2015 Cbc With Differential [...] 93.1 fl 11/10/2015 Cbc With Differential Ord2 [place]% 7.7 % 11/10/2015 Cbc With Differential Ord2 [...] 1.92 K/ul 11/10/2015 Cbc With Differential Ord2 [place] ABS# 0.9 K/ul 11/10/2015 Cbc With Differential [...] 95.4 fl 08/11/2015 Cbc With Differential Ord2 [place]% 8.1 % 08/11/2015 Cbc With Differential Ord2 [...] 2.93 K/ul 08/11/2015 Cbc With Differential Ord2 [place] ABS# 0.9 K/ul 08/11/2015 Cbc With Differential Ord2 Eos ABS# 0.1 K/ul 08/11/2015 Cbc With Differential Ord2 Baso ABS# 0.0 K/ul 08/11/2015 Cbc With Differential Ord2 New Analyzer Notice Please note new ref ranges starting 06-03-2015 due to implemntation of new five part differential hematolgy analyzer. 08/11/2015 Comp Metabolic Tcw671 NA 142 mEq/L 08/11/2015 Comp Metabolic Dpu859 K 3.6 mEq/L 08/11/2015 Comp Metabolic Lww539 CL 98 mEq/L 08/11/2015 Comp Metabolic Opb329 CO2 33.0 mEq/L 08/11/2015 Comp Metabolic Hrr420 ANION GAP 15 08/11/2015 Comp Metabolic Bhn556 GLUCOSE 100 mg/dL 08/11/2015 Comp Metabolic Zju933 Creat 0.9 mg/dL 08/11/2015 Comp Metabolic Skj666 eGFR 65 ml/min/1.73m2 08/11/2015 Comp Metabolic Xfd949 BUN 15 mg/dL 08/11/2015 Comp Metabolic Zcw194 B/C Ratio 16.3 Ratio 08/11/2015 Comp Metabolic Lme225 CALCIUM 8.8 mg/dL 08/11/2015 Comp Metabolic Jsg941 ALK PHOS 171 U/L 08/11/2015 Comp Metabolic Bwe968 AST(SGOT) 76 U/L 08/11/2015 Comp Metabolic Ngv268 ALT(SGPT) 64 U/L 08/11/2015 Comp Metabolic Gfs381 BILI T 0.4 mg/dL 08/11/2015 Comp Metabolic Qqs205 ALBUMIN 4.2 g/dL 08/11/2015 Comp Metabolic Bhd428 TPRO 6.7 g/dL 08/11/2015 Comp Metabolic Dqj302 GLOB 2.6 g/dL 08/11/2015 Comp Metabolic Zxn960 A/G Ratio 1.6 Ratio 08/11/2015 Comp Metabolic Slg870 Osmo 284 mOsmo 08/11/2015 %Hba1C Fsh813 % HbA1c 19401-7 6.7 % 08/11/2015 %Hba1C Sek448 Gluc Ave 146 mg/dL 08/11/2015 Free T4 Uks052 FREE T4 1.07 ng/dL 08/11/2015 Culture Urine [id number] URINE CULTURE SEE NOTES 07/23/2015 Culture Urine [id number] Continued Results 07/23/2015 Urine Culture Ucult Complete Growth of aerobe sent to ref lab 07/21/2015 Free T4 Etl578 FREE T4 0.76 ng/dL 04/15/2015 Tsh Ord6 hTSH II 1.99 uIU/mL 04/15/2015 %Hba1C Mht852 % HbA1c 81395-2 6.7 % 04/14/2015 %Hba1C Zbx769 Gluc Ave 146 mg/dL 04/14/2015 Comp Metabolic Dxi138 NA 140 mEq/L 04/14/2015 Comp Metabolic Lbz319 K 4.4 mEq/L 04/14/2015 Comp Metabolic Vhh122 CL 99 mEq/L 04/14/2015 Comp Metabolic Jry890 CO2 29.0 mEq/L 04/14/2015 Comp Metabolic Wnr930 ANION GAP 16 04/14/2015 Comp Metabolic Xhf873 GLUCOSE 100 mg/dL 04/14/2015 Comp Metabolic Dbh467 Creat 0.7 mg/dL 04/14/2015 Comp Metabolic Jhk154 eGFR 91 ml/min/1.73m2 04/14/2015 Comp Metabolic Mkj809 BUN 13 mg/dL 04/14/2015 Comp Metabolic Tqn216 B/C Ratio 18.8 Ratio 04/14/2015 Comp Metabolic Yvw854 CALCIUM 9.1 mg/dL 04/14/2015 Comp Metabolic Tbc816 ALK PHOS 138 U/L 04/14/2015 Comp Metabolic Vzi174 AST(SGOT) 22 U/L 04/14/2015 Comp Metabolic Vmr518 ALT(SGPT) 22 U/L 04/14/2015 Comp Metabolic Ucl519 BILI T 0.3 mg/dL 04/14/2015 Comp Metabolic Xbi986 ALBUMIN 4.0 g/dL 04/14/2015 Comp Metabolic Jon009 TPRO 6.5 g/dL 04/14/2015 Comp Metabolic Qpv316 GLOB 2.5 g/dL 04/14/2015 Comp Metabolic Eot760 A/G Ratio 1.6 Ratio 04/14/2015 Comp Metabolic Mts446 Osmo 280 mOsmo 04/14/2015 Cbc With Differential [...] Ord2 RDW 16.5 % 04/14/2015 CHEM 14 2349940 AST 15 U/L 09/11/2013 CHEM 14 2145002 ALT 25 IU/L 09/11/2013 CHEM 14 7093633 BUN 29 MG/DL 09/11/2013 CHEM 14 3913376 ALBUMIN 3.8 GM/DL 09/11/2013 CHEM 14 5740788 CHLORIDE 99 MMOL/L 09/11/2013 CHEM 14 8489417 BILI TOT 0.2 MG/DL 09/11/2013 CHEM 14 0094965 ALK PHOS 118 U/L 09/11/2013 CHEM 14 1365540 SODIUM 136 MMOL/L 09/11/2013 CHEM 14 3638238 CREATININE 1.26 MG/DL 09/11/2013 CHEM 14 8525447 CALCIUM 9.0 MG/DL 09/11/2013 CHEM 14 2266939 POTASSIUM 5.0 MMOL/L 09/11/2013 CHEM 14 6344871 PROT TOT 6.2 GM/DL 09/11/2013 CHEM 14 1895497 GLUCOSE 254 MG/DL 09/11/2013 CHEM 14 2781119 BICARB 29 MMOL/L 09/11/2013 CHEM 14 6120217 ANION GAP 8 MEQ/L 09/11/2013 GFR CALC 3499509 GFR AA 52.0L ML/MIN 09/11/2013 GFR CALC 9604203 GFR NON-AA 43.0L ML/MIN 09/11/2013 FREE T4 3651068 FREE T4 1.35 NG/DL 08/02/2013 CBC 1842421 WBC 7.5 10e9/L 08/01/2013 CBC 7892346 RBC 3.88 10e12/L 08/01/2013 CBC 9210722 HGB 12.1 g/dL 08/01/2013 CBC 0140687 HCT DET 37.6 % 08/01/2013 CBC 5019626 MCV 96.9 fL 08/01/2013 CBC 8103632 MCH 31.2 pg 08/01/2013 CBC 4651198 MCHC 32.2 g/dL 08/01/2013 CBC 2768135 PLT 289 10e9/L 08/01/2013 CBC 9728771 MPV 9.6 fL 08/01/2013 CBC 5612663 JOSEFINA % 56.0 % 08/01/2013 CBC 6448247 LY % 31.6 % 08/01/2013 CBC 3997177 MON % 10.0 % 08/01/2013 CBC 5236006 EOS % 1.7 % 08/01/2013 CBC 2113156 BASO % 0.7 % 08/01/2013 CBC 9342849 RDW 15.5 % 08/01/2013 CBC 7031811 ABS JOSEFINA 4.20 10e9/L 08/01/2013 CBC 1619821 ABS LYMPH 2.37 10e9/L 08/01/2013 CBC 2884222 ABS MONO 0.75 10e9/L 08/01/2013 CBC 7879140 ABS EOS 0.13 10e9/L 08/01/2013 CBC 1730206 ABS BASO 0.05 10e9/L 08/01/2013 CBC 9094914 RDW-SD 53.5 fL 08/01/2013 TSH 0085536 TSH 6.497 uIU/ML 08/01/2013 CHEM 14 1621129 AST 53 U/L 08/01/2013 CHEM 14 5821077 ALT 36 IU/L 08/01/2013 CHEM 14 9204816 BUN 16 MG/DL 08/01/2013 CHEM 14 8106889 ALBUMIN 4.2 GM/DL 08/01/2013 CHEM 14 6521468 CHLORIDE 103 MMOL/L 08/01/2013 CHEM 14 9099692 BILI TOT 0.4 MG/DL 08/01/2013 CHEM 14 9647780 ALK PHOS 113 U/L 08/01/2013 CHEM 14 0899890 SODIUM 139 MMOL/L 08/01/2013 CHEM 14 7255112 CREATININE 0.83 MG/DL 08/01/2013 CHEM 14 0674013 CALCIUM 9.5 MG/DL 08/01/2013 CHEM 14 3436474 POTASSIUM 4.2 MMOL/L 08/01/2013 CHEM 14 1647684 PROT TOT 6.4 GM/DL 08/01/2013 CHEM 14 0680788 GLUCOSE 135 MG/DL 08/01/2013 CHEM 14 0182598 BICARB 26 MMOL/L 08/01/2013 CHEM 14 6570111 ANION GAP 10 MEQ/L 08/01/2013 A1C HPLC 0752127 A1C HPLC 31316-0 8.1 % 08/01/2013 GFR CALC 7607278 GFR AA >60 ML/MIN 08/01/2013 GFR CALC 8772831 GFR NON-AA >60 ML/MIN 08/01/2013 CBC 5786882 WBC 10.4 10e9/L 03/21/2013 CBC 6552631 RBC 4.27 10e12/L 03/21/2013 CBC 8510183 HGB 13.1 g/dL 03/21/2013 CBC 2749775 HCT DET 41.2 % 03/21/2013 CBC 1930599 MCV 96.5 fL 03/21/2013 CBC 5355522 MCH 30.7 pg 03/21/2013 CBC 7961596 MCHC 31.8 g/dL 03/21/2013 CBC 7783188 PLT 398 10e9/L 03/21/2013 CBC 6390613 MPV 10.9 fL 03/21/2013 CBC 8763405 JOSEFINA % 65.4 % 03/21/2013 CBC 4291906 LY % 25.6 % 03/21/2013 CBC 3824572 MON % 6.7 % 03/21/2013 CBC 6792770 EOS % 1.9 % 03/21/2013 CBC 4952228 BASO % 0.4 % 03/21/2013 CBC 0991169 RDW 14.2 % 03/21/2013 CBC 3100348 ABS JOSEFINA 6.80 10e9/L 03/21/2013 CBC 0785852 ABS LYMPH 2.66 10e9/L 03/21/2013 CBC 4123002 ABS MONO 0.70 10e9/L 03/21/2013 CBC 3738753 ABS EOS 0.20 10e9/L 03/21/2013 CBC 8142577 ABS BASO 0.04 10e9/L 03/21/2013 CBC 7752439 RDW-SD 48.7 fL 03/21/2013 GFR CALC 7464374 GFR AA 57.0L ML/MIN 03/21/2013 GFR CALC 3762853 GFR NON-AA 47.0L ML/MIN 03/21/2013 CHEM 14 9464825 AST 22 U/L 03/21/2013 CHEM 14 2750834 ALT 22 IU/L 03/21/2013 CHEM 14 6343634 BUN 29 MG/DL 03/21/2013 CHEM 14 1281060 ALBUMIN 4.1 GM/DL 03/21/2013 CHEM 14 1628626 CHLORIDE 99 MMOL/L 03/21/2013 CHEM 14 0174727 BILI TOT 0.3 MG/DL 03/21/2013 CHEM 14 0362723 ALK PHOS 123 U/L 03/21/2013 CHEM 14 3138038 SODIUM 137 MMOL/L 03/21/2013 CHEM 14 2571122 CREATININE 1.16 MG/DL 03/21/2013 CHEM 14 1622194 CALCIUM 9.1 MG/DL 03/21/2013 CHEM 14 2220215 POTASSIUM 4.1 MMOL/L 03/21/2013 CHEM 14 9859526 PROT TOT 6.7 GM/DL 03/21/2013 CHEM 14 3844172 GLUCOSE 209 MG/DL 03/21/2013 CHEM 14 6113185 BICARB 26 MMOL/L 03/21/2013 CHEM 14 8983819 ANION GAP 12 MEQ/L 03/21/2013 A1C HPLC 3966228 A1C HPLC 19600-2 6.6 % 03/21/2013 GFR CALC 1472669 GFR AA >60 ML/MIN 01/17/2013 GFR CALC 8996141 GFR NON-AA 51.0L ML/MIN 01/17/2013 CHEM 14 2487128 AST 18 U/L 01/17/2013 CHEM 14 8671130 ALT 32 IU/L 01/17/2013 CHEM 14 5607644 BUN 22 MG/DL 01/17/2013 CHEM 14 2747410 ALBUMIN 4.1 GM/DL 01/17/2013 CHEM 14 3749141 CHLORIDE 99 MMOL/L 01/17/2013 CHEM 14 0944760 BILI TOT 0.3 MG/DL 01/17/2013 CHEM 14 1434090 ALK PHOS 110 U/L 01/17/2013 CHEM 14 8706686 SODIUM 138 MMOL/L 01/17/2013 CHEM 14 1277979 CREATININE 1.09 MG/DL 01/17/2013 CHEM 14 4773255 CALCIUM 8.8 MG/DL 01/17/2013 CHEM 14 2488025 POTASSIUM 3.5 MMOL/L 01/17/2013 CHEM 14 6481441 PROT TOT 6.1 GM/DL 01/17/2013 CHEM 14 5875386 GLUCOSE 163 MG/DL 01/17/2013 CHEM 14 8751252 BICARB 29 MMOL/L 01/17/2013 CHEM 14 7631485 ANION GAP 10 MEQ/L 01/17/2013 CBC 4920702 WBC 8.0 10e9/L 01/17/2013 CBC 4849974 RBC 3.85 10e12/L 01/17/2013 CBC 4173743 HGB 12.6 g/dL 01/17/2013 CBC 7525038 HCT DET 38.0 % 01/17/2013 CBC 8129313 MCV 98.7 fL 01/17/2013 CBC 8539473 MCH 32.7 pg 01/17/2013 CBC 1155558 MCHC 33.2 g/dL 01/17/2013 CBC 8607622 PLT 325 10e9/L 01/17/2013 CBC 5592033 MPV 10.4 fL 01/17/2013 CBC 0766588 JOSEFINA % 64.6 % 01/17/2013 CBC 2400035 LY % 27.0 % 01/17/2013 CBC 0286215 MON % 6.8 % 01/17/2013 CBC 1416603 EOS % 1.4 % 01/17/2013 CBC 5250871 BASO % 0.2 % 01/17/2013 CBC 8517784 RDW 15.5 % 01/17/2013 CBC 1195064 ABS JOSEFINA 5.17 10e9/L 01/17/2013 CBC 9880088 ABS LYMPH 2.16 10e9/L 01/17/2013 CBC 3053022 ABS MONO 0.54 10e9/L 01/17/2013 CBC 1440588 ABS EOS 0.11 10e9/L 01/17/2013 CBC 1925326 ABS BASO 0.02 10e9/L 01/17/2013 CBC 5273341 RDW-SD 54.3 fL 01/17/2013 TSH 0654001 TSH 3.683 uIU/ML 12/31/2012 FREE T4 4350807 FREE T4 1.34 NG/DL 12/31/2012 A1C HPLC 2679330 A1C HPLC 10304-3 6.6 % 12/21/2012 CHEM 14 1551411 AST 16 U/L 12/20/2012 CHEM 14 1620024 ALT 36 IU/L 12/20/2012 CHEM 14 5238393 BUN 26 MG/DL 12/20/2012 CHEM 14 9850900 ALBUMIN 4.2 GM/DL 12/20/2012 CHEM 14 5430803 CHLORIDE 103 MMOL/L 12/20/2012 CHEM 14 1450963 BILI TOT 0.4 MG/DL 12/20/2012 CHEM 14 9209053 ALK PHOS 107 U/L 12/20/2012 CHEM 14 2045907 SODIUM 141 MMOL/L 12/20/2012 CHEM 14 2344529 CREATININE 0.73 MG/DL 12/20/2012 CHEM 14 5312463 CALCIUM 9.2 MG/DL 12/20/2012 CHEM 14 4999504 POTASSIUM 4.3 MMOL/L 12/20/2012 CHEM 14 7499906 PROT TOT 6.2 GM/DL 12/20/2012 CHEM 14 0010418 GLUCOSE 135 MG/DL 12/20/2012 CHEM 14 7864522 BICARB 32 MMOL/L 12/20/2012 CHEM 14 0754483 ANION GAP 6 MEQ/L 12/20/2012 GFR CALC 3031690 GFR AA >60 ML/MIN 12/20/2012 GFR CALC 7475933 GFR NON-AA >60 ML/MIN 12/20/2012 CBC 9962896 WBC 8.4 10e9/L 12/20/2012 CBC 8187299 RBC 4.30 10e12/L 12/20/2012 CBC 2312013 HGB 13.9 g/dL 12/20/2012 CBC 5434082 HCT DET 41.8 % 12/20/2012 CBC 7366015 MCV 97.2 fL 12/20/2012 CBC 3159561 MCH 32.3 pg 12/20/2012 CBC 1996721 MCHC 33.3 g/dL 12/20/2012 CBC 0368427 PLT 358 10e9/L 12/20/2012 CBC 3787559 MPV 10.2 fL 12/20/2012 CBC 4178040 JOSEFINA % 63.3 % 12/20/2012 CBC 4905880 LY % 28.9 % 12/20/2012 CBC 0657398 MON % 6.3 % 12/20/2012 CBC 4718885 EOS % 1.1 % 12/20/2012 CBC 2651959 BASO % 0.4 % 12/20/2012 CBC 0759322 RDW 15.3 % 12/20/2012 CBC 7738455 ABS JOSEFINA 5.32 10e9/L 12/20/2012 CBC 4684215 ABS LYMPH 2.43 10e9/L 12/20/2012 CBC 1547543 ABS MONO 0.53 10e9/L 12/20/2012 CBC 4346745 ABS EOS 0.09 10e9/L 12/20/2012 CBC 0865268 ABS BASO 0.03 10e9/L 12/20/2012 CBC 0777938 RDW-SD 51.9 fL 12/20/2012 GFR CALC 8522456 GFR AA >60 ML/MIN 02/01/2012 GFR CALC 7790401 GFR NON-AA >60 ML/MIN 02/01/2012 CBC 4429669 WBC 10.8 10e9/L 02/01/2012 CBC 1152354 RBC 3.86 10e12/L 02/01/2012 CBC 3134492 HGB 11.8 g/dL 02/01/2012 CBC 7191309 HCT DET 36.3 % 02/01/2012 CBC 2089890 MCV 94.0 fL 02/01/2012 CBC 9138541 MCH 30.6 pg 02/01/2012 CBC 8828407 MCHC 32.5 g/dL 02/01/2012 CBC 1626685 PLT 321 10e9/L 02/01/2012 CBC 5488660 MPV 10.3 fL 02/01/2012 CBC 5508180 JOSEFINA % 75.9 % 02/01/2012 CBC 7257508 LY % 16.1 % 02/01/2012 CBC 0605110 MON % 6.8 % 02/01/2012 CBC 3855778 EOS % 1.0 % 02/01/2012 CBC 7605577 BASO % 0.2 % 02/01/2012 CBC 8688888 RDW 14.2 % 02/01/2012 CBC 3501206 ABS JOSEFINA 8.20 10e9/L 02/01/2012 CBC 4257840 ABS LYMPH 1.74 10e9/L 02/01/2012 CBC 8234506 ABS MONO 0.73 10e9/L 02/01/2012 CBC 2691098 ABS EOS 0.11 10e9/L 02/01/2012 CBC 5218098 ABS BASO 0.02 10e9/L 02/01/2012 CBC 8352627 RDW-SD 47.2 fL 02/01/2012 BRAIN PEP 7375803 BRAIN PEP FOOTNOTE pg/mL 02/01/2012 CHEM 14 6171506 AST 26 U/L 02/01/2012 CHEM 14 2113828 ALT 36 IU/L 02/01/2012 CHEM 14 0572318 BUN 29 MG/DL 02/01/2012 CHEM 14 7289043 ALBUMIN 3.7 GM/DL 02/01/2012 CHEM 14 9816101 CHLORIDE 105 MMOL/L 02/01/2012 CHEM 14 3215712 BILI TOT 0.2 MG/DL 02/01/2012 CHEM 14 0499462 ALK PHOS 89 U/L 02/01/2012 CHEM 14 0655590 SODIUM 141 MMOL/L 02/01/2012 CHEM 14 2838535 CREATININE 0.76 MG/DL 02/01/2012 CHEM 14 0414281 CALCIUM 9.0 MG/DL 02/01/2012 CHEM 14 4868946 POTASSIUM 4.8 MMOL/L 02/01/2012 CHEM 14 0598112 PROT TOT 5.5 GM/DL 02/01/2012 CHEM 14 5102773 GLUCOSE 83 MG/DL 02/01/2012 CHEM 14 7264312 BICARB 31 MMOL/L 02/01/2012 CHEM 14 2910279 ANION GAP 5 MEQ/L 02/01/2012 GFR CALC 4597544 GFR AA >60 ML/MIN 11/30/2011 GFR CALC 4936235 GFR NON-AA >60 ML/MIN 11/30/2011 CHEM 14 1361881 AST 14 U/L 11/30/2011 CHEM 14 4232639 ALT 17 IU/L 11/30/2011 CHEM 14 9713847 BUN 12 MG/DL 11/30/2011 CHEM 14 7242737 ALBUMIN 4.3 GM/DL 11/30/2011 CHEM 14 0638139 CHLORIDE 104 MMOL/L 11/30/2011 CHEM 14 1213264 BILI TOT 0.3 MG/DL 11/30/2011 CHEM 14 1614576 ALK PHOS 83 U/L 11/30/2011 CHEM 14 8194280 SODIUM 143 MMOL/L 11/30/2011 CHEM 14 5198983 CREATININE 0.71 MG/DL 11/30/2011 CHEM 14 5340319 CALCIUM 9.7 MG/DL 11/30/2011 CHEM 14 9724806 POTASSIUM 4.4 MMOL/L 11/30/2011 CHEM 14 9475495 PROT TOT 6.3 GM/DL 11/30/2011 CHEM 14 3305783 GLUCOSE 107 MG/DL 11/30/2011 CHEM 14 1699714 BICARB 27 MMOL/L 11/30/2011 CHEM 14 8193309 ANION GAP 12 MEQ/L 11/30/2011 CBC 7257535 WBC 8.7 10e9/L 11/30/2011 CBC 8902506 RBC 4.40 10e12/L 11/30/2011 CBC 6396592 HGB 13.6 g/dL 11/30/2011 CBC 4530538 HCT DET 41.0 % 11/30/2011 CBC 1092453 MCV 93.2 fL 11/30/2011 CBC 0467221 MCH 30.9 pg 11/30/2011 CBC 1490624 MCHC 33.2 g/dL 11/30/2011 CBC 3087860 PLT 328 10e9/L 11/30/2011 CBC 7661643 MPV 10.7 fL 11/30/2011 CBC 0160526 JOSEFINA % 68.4 % 11/30/2011 CBC 9842923 LY % 22.4 % 11/30/2011 CBC 8781803 MON % 7.9 % 11/30/2011 CBC 9710354 EOS % 1.1 % 11/30/2011 CBC 3338930 BASO % 0.2 % 11/30/2011 CBC 4447833 RDW 13.5 % 11/30/2011 CBC 1596291 ABS JOSEFINA 5.95 10e9/L 11/30/2011 CBC 9013691 ABS LYMPH 1.95 10e9/L 11/30/2011 CBC 3530076 ABS MONO 0.69 10e9/L 11/30/2011 CBC 2544345 ABS EOS 0.10 10e9/L 11/30/2011 CBC 9033160 ABS BASO 0.02 10e9/L 11/30/2011 CBC 6800528 RDW-SD 45.0 fL 11/30/2011 URINALYSIS NONAUTO W/O SCOPE 13058 Specific [place] 1.030 DateTime(Free Text in Aprima) URINALYSIS NONAUTO W/O SCOPE 43779 PH 5 DateTime(Free Text in Aprima) URINALYSIS NONAUTO W/O SCOPE 73215 GLUCOSE neg DateTime( Free Text in Aprima) URINALYSIS NONAUTO W/O SCOPE 69069 Protein neg DateTime( Free Text in Aprima) URINALYSIS NONAUTO W/O SCOPE 96381 Blood neg DateTime(Free Text in Aprima) URINALYSIS NONAUTO W/O SCOPE 75584 Bilirubin neg DateTime(Free Text in Aprima) URINALYSIS NONAUTO W/O SCOPE 66167 Ketones neg DateTime( Free Text in Aprima) URINALYSIS NONAUTO W/O SCOPE 50440 Urobilinogen neg DateTime(Free Text in Aprima) URINALYSIS NONAUTO W/O SCOPE 36856 Nitrite neg DateTime( Free Text in Aprima) URINALYSIS NONAUTO W/O SCOPE 25020 Leukocytes neg DateTime(Free Text in Aprima) UA 15404 Specific [place] 1.010 DateTime(Free Text in Aprima ) UA 46692 PH 5 DateTime(Free Text in Aprima) UA 57267 GLUCOSE N DateTime(Free Text in Aprima) UA 43886 Protein N DateTime(Free Text in Aprima) UA 50251 Blood TRACE DateTime(Free Text in Aprima) UA 30634 Bilirubin N DateTime(Free Text in Aprima) UA 23413 Ketones N DateTime(Free Text in Aprima) UA 64895 Urobilinogen N DateTime(Free Text in Aprima) UA 28649 Nitrite N DateTime(Free Text in Aprima) UA 65923 Leukocytes N DateTime(Free Text in Aprima) URINALYSIS NONAUTO W/O SCOPE 26042 Specific [place] 1.010 DateTime(Free Text in Aprima) URINALYSIS NONAUTO W/O SCOPE 79190 PH 7.5 DateTime(Free Text in Aprima) URINALYSIS NONAUTO W/O SCOPE 64855 GLUCOSE DateTime( Free Text in Aprima) URINALYSIS NONAUTO W/O SCOPE 33031 Protein trace DateTime(Free Text in Aprima) URINALYSIS NONAUTO W/O SCOPE 79708 Blood DateTime(Free Text in Aprima) URINALYSIS NONAUTO W/O SCOPE 54256 Bilirubin DateTime( Free Text in Aprima) URINALYSIS NONAUTO W/O SCOPE 94503 Ketones DateTime( Free Text in Aprima) URINALYSIS NONAUTO W/O SCOPE 03519 Urobilinogen DateTime (Free Text in Aprima) URINALYSIS NONAUTO W/O SCOPE 82558 Nitrite DateTime( Free Text in Aprima) URINALYSIS NONAUTO W/O SCOPE 14313 Leukocytes DateTime( Free Text in Aprima) URINALYSIS NONAUTO W/O SCOPE 15283 Specific [place] 1.010 DateTime(Free Text in Aprima) URINALYSIS NONAUTO W/O SCOPE 55462 PH 6 DateTime(Free Text in Aprima) URINALYSIS NONAUTO W/O SCOPE 13842 GLUCOSE DateTime( Free Text in Aprima) URINALYSIS NONAUTO W/O SCOPE 93207 Protein DateTime( Free Text in Aprima) URINALYSIS NONAUTO W/O SCOPE 05825 Blood DateTime(Free Text in Aprima) URINALYSIS NONAUTO W/O SCOPE 40093 Bilirubin DateTime( Free Text in Aprima) URINALYSIS NONAUTO W/O SCOPE 93080 Ketones DateTime( Free Text in Aprima) URINALYSIS NONAUTO W/O SCOPE 48763 Urobilinogen DateTime (Free Text in Aprima) URINALYSIS NONAUTO W/O SCOPE 67584 Nitrite DateTime( Free Text in Aprima) URINALYSIS NONAUTO W/O SCOPE 13344 Leukocytes DateTime( Free Text in Aprima) UA 82798 Specific [place]ley 1.020 DateTime(Free Text in ) UA 70026 PH 6 DateTime(Free Text in Apr) UA 33095 GLUCOSE neg DateTime(Free Text in Aprima) UA 52326 Protein neg DateTime(Free Text in Aprima) UA 86363 Blood neg DateTime(Free Text in Aprima) UA 81656 Bilirubin neg DateTime(Free Text in Aprima) UA 71481 Ketones neg DateTime(Free Text in Aprima) UA 53949 Urobilinogen neg DateTime(Free Text in Aprima) UA 90549 Nitrite neg DateTime(Free Text in Aprima) UA 93055 Leukocytes neg DateTime(Free Text in Apr) Review of Systems System Result Effective Dates Constitutional recent illness 03/12/2018 Constitutional anorexia 03/12/2018 [...] congruent 12/20/2012 None Full Exam - General 1995 Psychiatric mood and affect Appropriateness: appropriate emotional responses 12/20/2012 None Full Exam - General 1995 Ears/Nose/Throat otoscopic exam Tympanic membrane: air- fluid level 12/20/2012 None Full Exam - General 1994 Respiratory auscultation Basilar: diminished 12/20/2012 None Full Exam - General 1995 [...] time 08/13/2012 None Full Exam - General 1995 Psychiatric mood and affect Mood: depressed 08/13/2012 [...] rate 02/27/2012 None Full Exam - General 1995 Cardiovascular extremities Edema present: pitting 02/27/2012 None [...] accomodation 12/14/2011 None Full Exam - General 1995 Ears/Nose/Throat otoscopic exam External auditory canal: a normal exam 12/14/2011 None Full Exam - General 1995 [...] dentition 04/18/2011 None Procedures Procedure Codes Date OCCULT BLOOD FECES CPT -4: 44730 02/22/2018 URINALYSIS NONAUTO W/O SCOPE CPT-4: 01584 02/20/2018 URINALYSIS NONAUTO W/O SCOPE CPT-4: 83916 12/14/2017 URINALYSIS NONAUTO W/O SCOPE CPT-4: 34574 11/27/2017 PPPS, SUBSEQ VISIT CPT -4: G0439 10/27/2017 GLUCOSE MONITORING CONT CPT-4: 30147 09/27/2017 URINALYSIS NONAUTO W/O SCOPE CPT-4: 93342 06/30/2017 URINALYSIS NONAUTO W/O SCOPE CPT-4: 92762 11/25/2016 URINALYSIS NONAUTO W/O SCOPE CPT-4: 14710 10/21/2016 URINALYSIS NONAUTO W/O SCOPE CPT-4: 14336 06/24/2016 URINALYSIS NONAUTO W/O SCOPE CPT-4: 50692 04/11/2016 ADMIN PNEUMOCOCCAL VACCINE SNOMED CT: [id number] CPT-4: G0009 02/26/2016 PNEUMOCOCCAL VACC 13 ANURADHA IM Formatting Model/CDA Sections, Assigned to/Jada Velazquez SNOMED CT: [id number] CPT-4: 49771Evqekaq 02/26/2016 URINALYSIS NONAUTO W/O SCOPE CPT-4: 94544 02/10/2016 URINALYSIS NONAUTO W/O SCOPE CPT-4: 52833 11/27/2015 URINALYSIS NONAUTO W/O SCOPE CPT-4: 25094 11/02/2015 INITIAL PREVENTIVE EXAM CPT-4: G0402 09/29/2015 URINALYSIS NONAUTO W/O SCOPE CPT-4: 98013 07/20/2015 TRIAMCINOLONE ACET INJ NOS CPT-4: J3301 06/26/2015 URINALYSIS NONAUTO W/O SCOPE CPT-4: 08804 11/05/2014 URINALYSIS NONAUTO W/O SCOPE CPT-4: 28584 04/21/2014 CULTURE AEROBIC IDENTIFY CPT-4: 20586 12/12/2013 URINALYSIS NONAUTO W/O SCOPE CPT-4: 38571 11/18/2013 ROUTINE VENIPUNCTURE CPT-4: 37064 09/10/2013 ROUTINE VENIPUNCTURE CPT-4: 95146 08/01/2013 URINALYSIS NONAUTO W/O SCOPE CPT-4: 78367 06/28/2013 TRIAMCINOLONE ACET INJ NOS CPT-4: J3301 05/07/2013 DRAIN/INJECT JOINT/BURSA CPT-4: 22139 05/07/2013 ROUTINE VENIPUNCTURE CPT-4: 95237 03/21/2013 ROUTINE VENIPUNCTURE CPT-4: 27801 01/17/2013 URINALYSIS NONAUTO W/O SCOPE CPT-4: 63394 01/01/2013 ROUTINE VENIPUNCTURE CPT-4: 74835 12/31/2012 ROUTINE VENIPUNCTURE CPT-4: 76908 12/20/2012 URINALYSIS NONAUTO W/O SCOPE CPT-4: 96662 11/05/2012 DRAIN/INJECT JOINT/BURSA CPT-4: 28088 09/21/2012 TRIAMCINOLONE ACET INJ NOS CPT-4: J3301 09/21/2012 URINALYSIS NONAUTO W/O SCOPE CPT-4: 80939 07/19/2012 TRIAMCINOLONE ACET INJ NOS CPT-4: J3301 07/06/2012 Pneumococcal Polysaccharide Vaccine, 23-Valent, Ad CPT-4: 65438 06/07/2012 IMMUNIZATION ADMIN CPT -4: 64481 06/07/2012 TRIAMCINOLONE ACET INJ NOS CPT-4: J3301 05/02/2012 ROUTINE VENIPUNCTURE CPT-4: 29488 02/01/2012 URINALYSIS NONAUTO W/O SCOPE CPT-4: 09195 02/01/2012 TRIAMCINOLONE ACET INJ NOS CPT-4: J3301 12/14/2011 INJ TRIGGER POINT 1/2 MUSCL CPT-4: 26335 12/14/2011 PROMETHAZINE HCL INJECTION CPT-4: J2550 11/30/2011 ROUTINE VENIPUNCTURE CPT-4: 09958 11/30/2011 TRIAMCINOLONE ACET INJ NOS CPT-4: J3301 08/01/2011 DRAIN/INJECT JOINT/BURSA CPT-4: 52977 08/01/2011 THER/PROPH/DIAG INJ SC/IM CPT-4: 10839 04/18/2011 TRIAMCINOLONE ACET INJ NOS CPT-4: J3301 04/18/2011 Vital Signs Date Vital 03/12/2018 Blood Pressure 1: 140/70 Code : 8480-6 BMI: 40.2 Code : 48824-0 Heart Rate 1 : 78 bpm Height: 5'2" SpO2: 98% Weight: 220 lbs 02/20/2018 Blood Pressure 1: 140/70 Code : 8480-6 BMI: 40.2 Code : 51008-4 Heart Rate 1 : 96 bpm Height: 5'2" SpO2: 93% Weight: 220 lbs 11/27/2017 Blood Pressure 1: 158/78 Code : 8480-6 BMI: 40.8 Code : 33660-9 Heart Rate 1 : 100 bpm Height: 5'2" SpO2: 95% Weight: 223 lbs 10/27/2017 Blood Pressure 1: 146/70 Code : 8480-6 BMI: 41.3 Code : 09298-9 Heart Rate 1 : 82 bpm Height: 5'2" SpO2: 99% Waist Measure (cm): 119 cm Weight: 226 lbs 09/15/2017 Blood Pressure 1: 136/66 Code : 8480-6 BMI: 41.5 Code : 07773-9 Heart Rate 1 : 94 bpm Height: 5'2" SpO2: 96% Weight: 227 lbs 08/18/2017 Blood Pressure 1: 120/68 Code : 8480-6 BMI: 41.5 Code : 53589-3 Heart Rate 1 : 87 bpm Height: 5'2" SpO2: 94% Weight: 227 lbs 08/03/2017 Blood Pressure 1: 132/72 Code : 8480-6 BMI: 41.5 Code : 07152-5 Heart Rate 1 : 93 bpm Height: 5'2" SpO2: 95% Weight: 227 lbs 07/27/2017 Blood Pressure 1: 128/84 Code : 8480-6 BMI: 41.5 Code : 61068-7 Heart Rate 1 : 91 bpm Height: 5'2" SpO2: 98% Weight: 227 lbs 06/13/2017 Blood Pressure 1: 136/84 Code : 8480-6 BMI: 42.6 Code : 12649-5 Heart Rate 1 : 91 bpm Height: 5'2" SpO2: 94% Weight: 233 lbs 04/21/2017 Blood Pressure 1: 142/84 Code : 8480-6 BMI: 42.8 Code : 87547-6 Heart Rate 1 : 89 bpm Height: 5'2" SpO2: 94% Weight: 234 lbs 04/18/2017 Blood Pressure 1: 140/86 Code : 8480-6 BMI: 42.8 Code : 44163-1 Heart Rate 1 : 89 bpm Height: 5'2" SpO2: 97% Weight: 234 lbs 03/27/2017 Blood Pressure 1: 148/76 Code : 8480-6 BMI: 42.6 Code : 00721-1 Heart Rate 1 : 92 bpm Height: [...] Code : 8480-6 BMI: 44.3 Code : 93708-5 Heart Rate 1 : 90 bpm Height: 5'2" SpO2: 96% Weight: 242 lbs 01/30/2017 Blood Pressure 1: 132/72 Code : 8480-6 Heart Rate 1: 97 bpm Height: 5'2" SpO2: 96% Weight: 01/16/2017 Blood Pressure 1: 138/76 Code : 8480-6 BMI: 43.3 Code : 17422-4 Heart Rate 1 : 84 bpm Height: 5'2" SpO2: 99% Weight: 237 lbs 12/13/2016 Blood Pressure 1: 144/78 Code : 8480-6 Heart Rate 1: 96 bpm Height: 5'2" SpO2: 98% Temperature: 36.6 (C) / 97.9 (F) Weight: 11/11/2016 Blood Pressure 1: 144/80 Code : 8480-6 BMI: 43.0 Code : 17152-9 Heart Rate 1 : 89 bpm Height: 5'2" SpO2: 94% Temperature: 36.1 (C) / 97.0 (F) Weight: 235 lbs 10/28/2016 Blood Pressure 1: 156/82 Code : 8480-6 BMI: 43.9 Code : 34781-5 Heart Rate 1 : 78 bpm Height: [...] Code : 8480-6 BMI: 42.4 Code : 04755-6 Heart Rate 1 : 95 bpm Height: 5'2" SpO2: 98% Weight: 232 lbs 08/09/2016 Blood Pressure 1: 138/80 Code : 8480-6 BMI: 41.0 Code : 34113-3 Heart Rate 1 : 98 bpm Height: 5'2" SpO2: 97% Weight: 224 lbs 07/26/2016 Blood Pressure 1: 148/82 Code : 8480-6 BMI: 42.4 Code : 52998-6 Heart Rate 1 : 89 bpm Height: 5'2" SpO2: 97% Weight: 232 lbs 05/24/2016 Blood Pressure 1: 146/72 Code : 8480-6 BMI: 42.4 Code : 37898-6 Heart Rate 1 : 89 bpm Height: 5'2" SpO2: 99% Weight: 232 lbs 04/19/2016 Blood Pressure 1: 130/88 Code : 8480-6 BMI: 42.4 Code : 96327-6 Heart Rate 1 : 88 bpm Height: 5'2" SpO2: 98% Weight: 232 lbs 04/11/2016 Blood Pressure 1: 140/80 Code : 8480-6 BMI: 41.7 Code : 51066-4 Heart Rate 1 : 97 bpm Height: 5'2" SpO2: 95% Weight: 228 lbs 03/21/2016 Blood Pressure 1: 138/80 Code : 8480-6 BMI: 44.4 Code : 44017-6 Height: 5'2" Weight: 243 lbs 03/11/2016 Blood Pressure 1: 138/82 Code : 8480-6 BMI: 44.4 Code : 67778-5 Heart Rate 1 : 86 bpm Height: 5'2" SpO2: 95% Weight: 243 lbs 02/26/2016 Blood Pressure 1: 130/82 Code : 8480-6 BMI: 43.9 Code : 49286-8 Heart Rate 1 : 86 bpm Height: 5'2" SpO2: 97% Weight: 240 lbs 02/02/2016 Blood Pressure 1: 136/86 Code : 8480-6 Heart Rate 1: 56 bpm Height: SpO2: 96% Weight: 12/17/2015 Blood Pressure 1: 140/80 Code : 8480-6 BMI: 40.2 Code : 79234-4 Heart Rate 1 : 100 bpm Height: 5'2" SpO2: 99% Weight: 220 lbs 12/08/2015 Blood Pressure 1: 132/86 Code : 8480-6 Heart Rate 1: 100 bpm Height: SpO2: 97% Weight: 11/27/2015 Blood Pressure 1: 128/82 Code : 8480-6 BMI: 39.3 Code : 60978-6 Heart Rate 1 : 112 bpm Height: 5'2" SpO2: 96% Weight: 215 lbs 11/12/2015 Blood Pressure 1: 168/88 Code : 8480-6 Heart Rate 1: 106 bpm Height: 5'2" SpO2: 96% Weight: 11/10/2015 Blood Pressure 1: 156/80 Code : 8480-6 Heart Rate 1: 94 bpm Height: 5'2" SpO2: 96% Weight: 10/27/2015 Blood Pressure 1: 142/76 Code : 8480-6 BMI: 40.8 Code : 78399-8 Heart Rate 1 : 86 bpm Height: 5'2" SpO2: 97% Weight: 223 lbs 09/29/2015 Blood Pressure 1: 132/88 Code : 8480-6 BMI: 41.7 Code : 32499-1 Heart Rate 1 : 104 bpm Height: 5'2" SpO2: 94% Weight: 228 lbs 09/22/2015 Blood Pressure 1: 130/80 Code : 8480-6 BMI: 41.7 Code : 86610-7 Heart Rate 1 : 89 bpm Height: 5'2" SpO2: 97% Weight: 228 lbs 09/01/2015 Blood Pressure 1: 138/88 Code : 8480-6 BMI: 40.6 Code : 94189-2 Heart Rate 1 : 95 bpm Height: 5'2" SpO2: 95% Weight: 222 lbs 08/10/2015 Blood Pressure 1: 140/82 Code : 8480-6 BMI: 41.0 Code : 37219-2 Heart Rate 1 : 84 bpm Height: 5'2" SpO2: 97% Weight: 224 lbs 06/26/2015 Blood Pressure 1: 152/72 Code : 8480-6 BMI: 41.2 Code : 14628-7 Heart Rate 1 : 92 bpm Height: 5'2" SpO2: 96% Weight: 225 lbs 04/14/2015 Blood Pressure 1: 158/86 Code : 8480-6 BMI: 41.2 Code : 72307-5 Heart Rate 1 : 63 bpm Height: 5'2" SpO2: 93% Weight: 225 lbs 03/03/2015 Blood Pressure 1: 152/80 Code : 8480-6 BMI: 40.1 Code : 80060-5 Heart Rate 1 : 101 bpm Height: 5'2" SpO2: 97% Weight: 219 lbs 01/15/2015 Blood Pressure 1: 127/76 Code : 8480-6 BMI: 40.6 Code : 56754-6 Heart Rate 1 : 109 bpm Height: 5'2" SpO2: 97% Weight: 222 lbs 01/01/2015 Blood Pressure 1: 136/64 Code : 8480-6 BMI: 40.4 Code : 86596-5 Heart Rate 1 : 94 bpm Height: 5'2" SpO2: 96% Weight: 221 lbs 12/25/2014 Blood Pressure 1: 146/80 Code : 8480-6 Heart Rate 1: 95 bpm Height: 5'2" SpO2: 94% 11/04/2014 Blood Pressure 1: 110/70 Code : 8480-6 BMI: 40.2 Code : 52228-7 Heart Rate 1 : 878 bpm Height: 5'2" SpO2: 97% Weight: 220 lbs 09/08/2014 Blood Pressure 1: 142/78 Code : 8480-6 BMI: 39.5 Code : 70935-8 Heart Rate 1 : 97 bpm Height: 5'2" SpO2: 98% Weight: 216 lbs 08/29/2014 Blood Pressure 1: 140/90 Code : 8480-6 Blood Pressure 2: 120/70 Code: 8480-6 BMI: 40.2 Code: 96085-4 Heart Rate 1: 88 bpm Height: 5'2" Weight: 220 lbs 06/30/2014 Blood Pressure 1: 132/74 Code : 8480-6 BMI: 39.1 Code : 50427-8 Heart Rate 1 : 76 bpm Height: 5'2" Weight: 214 lbs 06/12/2014 Blood Pressure 1: 118/76 Code : 8480-6 BMI: 40.4 Code : 31983-2 Heart Rate 1 : 86 bpm Height: 5'2" SpO2: 96% Weight: 221 lbs 05/26/2014 Blood Pressure 1: 128/78 Code : 8480-6 BMI: 39.5 Code : 50434-7 Heart Rate 1 : 76 bpm Height: 5'2" Weight: 216 lbs 04/15/2014 Blood Pressure 1: 144/72 Code : 8480-6 BMI: 40.8 Code : 61482-2 Heart Rate 1 : 60 bpm Height: 5'2" Weight: 223 lbs 03/25/2014 Blood Pressure 1: 118/72 Code : 8480-6 BMI: 41.2 Code : 64385-0 Heart Rate 1 : 80 bpm Height: 5'2" Weight: 225 lbs 03/03/2014 Blood Pressure 1: 138/86 Code : 8480-6 BMI: 41.5 Code : 22245-9 Heart Rate 1 : 104 bpm Height: 5'2" Temperature: 36.1 (C) / 97.0 (F) Weight: 227 lbs 02/13/2014 Blood Pressure 1: 142/88 Code : 8480-6 BMI: 40.8 Code : 24413-9 Heart Rate 1 : 88 bpm Height: 5'2" Weight: 223 lbs 01/27/2014 Blood Pressure 1: 124/68 Code : 8480-6 BMI: 39.9 Code : 30368-6 Heart Rate 1 : 89 bpm Height: 5'2" SpO2: 94% Weight: 218 lbs 12/26/2013 Blood Pressure 1: 108/52 Code : 8480-6 BMI: 41.2 Code : 50477-8 Heart Rate 1 : 96 bpm Height: 5'2" Weight: 225 lbs 12/12/2013 Blood Pressure 1: 158/88 Code : 8480-6 BMI: 42.6 Code : 08657-2 Heart Rate 1 : 80 bpm Height: 5'2" Weight: 233 lbs 11/14/2013 Blood Pressure 1: 120/60 Code : 8480-6 BMI: 42.4 Code : 00691-0 Heart Rate 1 : 96 bpm Height: 5'2" Temperature: 5423.3 (C ) / 9794.0 (F) Weight: 232 lbs 10/21/2013 Blood Pressure 1: 100/60 Code : 8480-6 BMI: 41.9 Code : 78366-1 Heart Rate 1 : 96 bpm Height: 5'2" Weight: 229 lbs 10/03/2013 Blood Pressure 1: 122/72 Code : 8480-6 BMI: 42.3 Code : 99337-9 Heart Rate 1 : 84 bpm Height: 5'2" Weight: 231 lbs 09/27/2013 Blood Pressure 1: 112/58 Code : 8480-6 Heart Rate 1: 72 bpm SpO2: 93% Temperature: 36.2 (C) / 97.1 (F) Weight: 09/23/2013 Blood Pressure 1: 108/76 Code : 8480-6 BMI: 42.4 Code : 48735-2 Heart Rate 1 : 95 bpm Height: 5'2" SpO2: 96% Weight: 232 lbs 09/20/2013 Blood Pressure 1: 150/88 Code : 8480-6 BMI: 42.4 Code : 06985-0 Heart Rate 1 : 104 bpm Height: 5'2" Weight: 232 lbs 09/10/2013 Blood Pressure 1: 112/62 Code : 8480-6 Heart Rate 1: 88 bpm Weight: 238 lbs 08/19/2013 Blood Pressure 1: 102/58 Code : 8480-6 BMI: 43.7 Code : 35384-6 Heart Rate 1 : 80 bpm Height: 5'2" Weight: 239 lbs 08/12/2013 Blood Pressure 1: 110/60 Code : 8480-6 BMI: 43.3 Code : 34785-5 Heart Rate 1 : 90 bpm Height: 5'2" SpO2: 96% Weight: 236 lbs 8 oz 08/01/2013 Blood Pressure 1: 128/72 Code : 8480-6 BMI: 42.6 Code : 42112-0 Heart Rate 1 : 78 bpm Height: 5'2" SpO2: 97% Weight: 233 lbs 07/19/2013 Blood Pressure 1: 100/60 Code : 8480-6 BMI: 44.3 Code : 94287-1 Heart Rate 1 : 92 bpm Height: 5'2" Temperature: 36.2 (C) / 97.2 (F) Weight: 242 lbs 07/15/2013 Blood Pressure 1: 180/92 Code : 8480-6 Heart Rate 1: 115 bpm SpO2: 98% Weight: 06/27/2013 Blood Pressure 1: 114/64 Code : 8480-6 BMI: 44.1 Code : 83857-6 Heart Rate 1 : 114 bpm Height: 5'2" SpO2: 93% Weight: 241 lbs 06/10/2013 Blood Pressure 1: 174/86 Code : 8480-6 BMI: 44.1 Code : 01993-6 Heart Rate 1 : 132 bpm Height: 5'2" SpO2: 94% Temperature: 35.6 (C) / 96.0 (F) Weight: 241 lbs 05/07/2013 Blood Pressure 1: 160/88 Code : 8480-6 BMI: 43.5 Code : 07467-6 Heart Rate 1 : 108 bpm Height: 5'2" SpO2: 96% Weight: 238 lbs 04/16/2013 Blood Pressure 1: 116/62 Code : 8480-6 BMI: 44.6 Code : 22384-6 Heart Rate 1 : 90 bpm Height: 5'2" SpO2: 94% Weight: 244 lbs 03/21/2013 Blood Pressure 1: 102/64 Code : 8480-6 BMI: 42.8 Code : 66740-3 Height: 5'2" Weight: 234 lbs 02/12/2013 Blood Pressure 1: 130/78 Code : 8480-6 BMI: 42.0 Code : 87190-5 Heart Rate 1 : 100 bpm Height: 5'2" Weight: 229 lbs 8 oz 02/04/2013 Blood Pressure 1: 126/68 Code : 8480-6 BMI: 44.3 Code : 77029-8 Heart Rate 1 : 88 bpm Height: 5'2" Weight: 242 lbs 01/17/2013 Blood Pressure 1: 132/76 Code : 8480-6 Heart Rate 1: 121 bpm SpO2: 97% Weight: 242 lbs 12/31/2012 Blood Pressure 1: 144/90 Code : 8480-6 BMI: 43.0 Code : 92517-9 Heart Rate 1 : 96 bpm Height: 5'2" Temperature: 36.2 (C) / 97.2 (F) Weight: 235 lbs 12/20/2012 Blood Pressure 1: 156/96 Code : 8480-6 BMI: 42.4 Code : 02113-9 Heart Rate 1 : 96 bpm Height: [...] Code : 8480-6 BMI: 38.8 Code : 94806-6 Heart Rate 1 : 96 bpm Height: 5'2" Temperature: 36.3 (C) / 97.3 (F) Weight: 212 lbs 08/23/2012 Blood Pressure 1: 116/72 Code : 8480-6 BMI: 38.3 Code : 55210-7 Heart Rate 1 : 92 bpm Height: 5'2" Weight: 209 lbs 8 oz 08/13/2012 Blood Pressure 1: 140/92 Code : 8480-6 BMI: 37.3 Code : 46689-3 Heart Rate 1 : 104 bpm Height: 5'2" Weight: 204 lbs 08/07/2012 Blood Pressure 1: 148/98 Code : 8480-6 BMI: 36.6 Code : 86050-3 Heart Rate 1 : 102 bpm Height: [...] Code : 8480-6 BMI: 35.3 Code : 44412-9 Heart Rate 1 : 105 bpm Height: [...] Symptom Name Status Result Effective Date Notes gait abnormality Quality intermittent 03/12/2018 None gait [...] december - she was seen by her ticket clerk again in mid 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 She states that she saw her ticket clerk and was to be started on another [...] pain Quality throbbing 09/10/2013 LEFT SHOULDER PAIN-DR ZAFUTA ORDERED MRI LEFT SHOULDER skin lesion Onset and Resolution ongoing 09/10/2013 None skin lesion Onset of Symptom 1 weeks ago 09/10/2013 None skin lesion Severity mild 09/10/2013 None skin lesion Significant Medical Conditions trauma 09/10/2013 fell last Monday skin lesion Triggers activity 09/10/2013 None skin lesion Alleviating Factors medication 09/10/2013 went to [facility] on Monday and start on Cipro diabetes [...] differently. States she did eat BBQ from [employer] yesterday for lunch. hypertension Quality chronic [...] data Encounters Encounter Performer Location Codes Date ([id number]) 24804 EST. PATIENT, LEVEL IV Diagnosis: Type 2 diabetes mellitus with hyperglycemia[ICD10: E11.65] Diagnosis: Low back pain[ICD10: M54.5] Diagnosis: Essential (primary) hypertension[ICD10: I10] Diagnosis: Generalized anxiety disorder[ICD10: F41.1] Rika Motta MD, [facility] CPT-4: 11584 03/12/2018 ([id number]) 82586 EST. PATIENT, LEVEL III Diagnosis: Type 2 diabetes mellitus with hyperglycemia[ICD10: E11.65] Diagnosis: Essential (primary) hypertension[ICD10: I10] Diagnosis: Dysuria[ICD10: R30.0] Diagnosis: Vitamin D deficiency, unspecified[ICD10: E55.9] Diagnosis: Low back pain[ICD10: M54.5] Rika Motta MD, [facility] CPT-4: 22914 02/20/2018 ([id number]) 20213 EST. PATIENT, LEVEL III Diagnosis: Dysuria[ICD10: R30.0] Diagnosis: Essential (primary) hypertension[ICD10: I10] Rika Motta MD, [facility] CPT-4: 89785 11/27/2017 ([id number]) 01213 EST. PATIENT, LEVEL III Diagnosis: Type 2 diabetes mellitus with hyperglycemia[ICD10: E11.65] Diagnosis: Chronic pain syndrome[ICD10: G89.4] Rika Motta MD, [facility] CPT-4: 07658 09/15/2017 ([id number]) 25213 EST. 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 PATIENT, LEVEL III Diagnosis: Chronic maxillary sinusitis[ICD10: J32.0] Diagnosis: Type 2 diabetes mellitus with hyperglycemia[ICD10: E11.65] Diagnosis: Hordeolum externum left upper eyelid[ICD10: H00.014] Rika Motta MD, [facility] CPT-4: 03784 08/03/2017 ([id number]) 38681 EST. PATIENT, LEVEL IV Diagnosis: Type 2 diabetes mellitus with hyperglycemia[ICD10: E11.65] Diagnosis: Hordeolum externum left upper eyelid[ICD10: H00.014] Diagnosis: Essential (primary) hypertension[ICD10: I10] Diagnosis: Chronic obstructive pulmonary disease, unspecified[ICD10: J44.9] Rika Motta MD, [facility] CPT-4: 42454 07/27/2017 ([id number]) 94028 EST. PATIENT, LEVEL IV Diagnosis: Type 2 diabetes mellitus with hyperglycemia[ICD10: E11.65] Diagnosis: Essential (primary) hypertension[ICD10: I10] Tessie Motta MD, [facility] CPT-4: 86226 06/13/2017 83104 EST. PATIENT, LEVEL IV Diagnosis: Periapical abscess without sinus[ICD10: K04.7] Arlette Motta MD, [facility] CPT-4: 94085 04/21/2017 ([id number]) 76492 EST. PATIENT, LEVEL IV Diagnosis: Type 2 diabetes mellitus with hyperglycemia[ICD10: E11.65] Diagnosis: Cellulitis of abdominal wall[ICD10: L03.311] Diagnosis: Chronic pain syndrome[ICD10: G89.4] Diagnosis: Essential (primary) hypertension[ICD10: I10] Diagnosis: Unsteadiness on feet[ICD10: R26.81] Rika Motta MD, [facility] CPT-4: 80283 04/18/2017 ([id number]) 72761 EST. PATIENT, LEVEL IV Diagnosis: Type 2 diabetes mellitus with hyperglycemia[ICD10: E11.65] Diagnosis: Hypokalemia[ICD10: E87.6] Diagnosis: Essential (primary) hypertension[ICD10: I10] Diagnosis: Paroxysmal atrial fibrillation[ICD10: I48.0] Rika Motta MD, [facility] CPT-4: 78742 03/27/2017 ([id number]) 99904 EST. PATIENT, LEVEL IV Diagnosis: Essential (primary) hypertension[ICD10: I10] Diagnosis: Type 2 diabetes mellitus with hyperglycemia[ICD10: E11.65] Diagnosis: Hypokalemia[ICD10: E87.6] Diagnosis: Generalized abdominal pain[ICD10: R10.84] Rika Motta MD, [facility] CPT-4: 92780 02/27/2017 ([id number]) 67416 EST. PATIENT, LEVEL III Diagnosis: Drug induced constipation[ICD10: K59.03] Rika Motta MD, [facility] CPT-4: 37545 02/21/2017 ([id number]) 92949 EST. PATIENT, LEVEL IV Diagnosis: Generalized abdominal pain[ICD10: R10.84] Diagnosis: Hypokalemia[ICD10: E87.6] Diagnosis: Hypomagnesemia[ICD10: E83.42] Rika Motta MD, [facility] CPT-4: 90511 02/17/2017 ([id number]) 01211 EST. PATIENT, LEVEL IV Diagnosis: Paroxysmal atrial fibrillation[ICD10: I48.0] Diagnosis: Essential (primary) hypertension[ICD10: I10] Diagnosis: Chronic obstructive pulmonary disease, unspecified[ICD10: J44.9] Diagnosis: Type 2 diabetes mellitus with hyperglycemia[ICD10: E11.65] Diagnosis: Diarrhea, unspecified[ICD10: R19.7] Rika Motta MD, [facility] CPT-4: 75836 02/13/2017 ([id number]) 04938 EST. PATIENT, LEVEL IV Diagnosis: Type 2 diabetes mellitus with hyperglycemia[ICD10: E11.65] Diagnosis: Pain in right shoulder[ICD10: M25.511] Diagnosis: Chronic maxillary sinusitis[ICD10: J32.0] Rika Motta MD, [facility] CPT-4: 18605 01/30/2017 ([id number]) 88586 EST. PATIENT, LEVEL IV Diagnosis: Essential (primary) hypertension[ICD10: I10] Diagnosis: Type 2 diabetes mellitus with hyperglycemia[ICD10: E11.65] Diagnosis: Hypothyroidism, unspecified[ICD10: E03.9] Diagnosis: Generalized anxiety disorder[ICD10: F41.1] Diagnosis: Chronic pain syndrome[ICD10: G89.4] Diagnosis: Restless legs syndrome[ICD10: G25.81] Diagnosis: Obstructive sleep apnea (adult) (pediatric)[ICD10: G47.33] Rika Motta MD, [facility] CPT-4: 06528 01/16/2017 89420 EST. PATIENT, LEVEL IV Diagnosis: Other acute sinusitis[ICD10: J01.80] Diagnosis: Diplopia[ICD10: H53.2] Arlette Motta MD, [facility] CPT-4: 76070 12/13/2016 ([id number]) 59507 EST. PATIENT, LEVEL IV Diagnosis: Essential (primary) hypertension[ICD10: I10] Diagnosis: Fasciculation[ICD10: R25.3] Diagnosis: Generalized anxiety disorder[ICD10: F41.1] Diagnosis: Other obesity due to excess calories[ICD10: E66.09] Diagnosis: Zoster without complications[ICD10: B02.9] Diagnosis: Unilateral primary osteoarthritis, right knee[ICD10: M17.11] Diagnosis: Unsteadiness on feet[ICD10: R26.81] Rika Motta MD, [facility] CPT-4: 53385 11/11/2016 ([id number]) 57180 EST. PATIENT, LEVEL IV Diagnosis: Zoster without complications[ICD10: B02.9] Diagnosis: Type 2 diabetes mellitus with hyperglycemia[ICD10: E11.65] Diagnosis: Vomiting, unspecified[ICD10: R11.10] Rika Motta MD, [facility] CPT-4: 51145 10/28/2016 [id number]) 55204 EST. PATIENT, LEVEL III Diagnosis: Pain in right knee[ICD10: M25.561] Diagnosis: Zoster without complications[ICD10: B02.9] Rika Motta MD, [facility] CPT-4: 74389 10/13/2016 ([id number]) 13739 EST. PATIENT, LEVEL IV Diagnosis: Acute recurrent maxillary sinusitis[ICD10: J01.01] Diagnosis: Low back pain[ICD10: M54.5] Diagnosis: Pain in right knee[ICD10: M25.561] Diagnosis: Allergic rhinitis due to pollen[ICD10: J30.1] Rika Motta MD, [facility] CPT-4: 97907 09/23/2016 ([id number]) 11728 EST. PATIENT, LEVEL IV Diagnosis: Pain in right shoulder[ICD10: M25.511] Diagnosis: Type 2 diabetes mellitus with hyperglycemia[ICD10: E11.65] Diagnosis: Cervicalgia[ICD10: M54.2] Diagnosis: Candidiasis of skin and nail[ICD10: B37.2] Diagnosis: Low back pain[ICD10: M54.5] Rika Motta MD, [facility] CPT-4: 73017 09/13/2016 ([id number]) 40113 EST. 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 PATIENT, LEVEL IV Diagnosis: Type 2 diabetes mellitus with hyperglycemia[ICD10: E11.65] Diagnosis: Candidiasis of skin and nail[ICD10: B37.2] Diagnosis: Chronic obstructive pulmonary disease, unspecified[ICD10: J44.9] Diagnosis: Paroxysmal atrial fibrillation[ICD10: I48.0] Diagnosis: Pneumonia, unspecified organism[ICD10: J18.9] Rika Motta MD, [facility] CPT-4: 49391 07/26/2016 ([id number]) 21818 EST. PATIENT, LEVEL IV Diagnosis: Type 2 diabetes mellitus with hyperglycemia[ICD10: E11.65] Diagnosis: Generalized anxiety disorder[ICD10: F41.1] Diagnosis: Essential (primary) hypertension[ICD10: I10] Diagnosis: Chronic pain syndrome[ICD10: G89.4] Rika Motta MD, [facility] CPT-4: 87095 05/24/2016 ([id number]) 96457 EST. PATIENT, LEVEL IV Diagnosis: Menopausal and female climacteric states[ICD10: N95.1] Diagnosis: Type 2 diabetes mellitus with hyperglycemia[ICD10: E11.65] Diagnosis: Generalized anxiety disorder[ICD10: F41.1] Rika Motta MD, [facility] CPT-4: 50965 04/19/2016 ([id number]) 82137 EST. PATIENT, LEVEL IV Diagnosis: Type 2 diabetes mellitus with hyperglycemia[ICD10: E11.65] Diagnosis: Generalized anxiety disorder[ICD10: F41.1] Diagnosis: Essential (primary) hypertension[ICD10: I10] Diagnosis: Dysuria[ICD10: R30.0] Rika Motta MD, [facility] CPT-4: 64808 04/11/2016 ([id number]) 30859 EST. PATIENT, LEVEL IV Diagnosis: Generalized anxiety disorder[ICD10: F41.1] Diagnosis: Major depressive disorder, single episode, mild[ICD10: F32.0] Diagnosis: Hypothyroidism, unspecified[ICD10: E03.9] Diagnosis: Type 2 diabetes mellitus with hyperglycemia[ICD10: E11.65] Rika Motta MD, [facility] CPT-4: 22872 03/21/2016 [id number]) 00661 EST. PATIENT, LEVEL IV Diagnosis: Type 2 diabetes mellitus with hyperglycemia[ICD10: E11.65] Diagnosis: Cellulitis of right lower limb[ICD10: L03.115] Diagnosis: Other elevated white blood cell count[ICD10: D72.828] Diagnosis: Localized edema[ICD10: R60.0] Rika Motta MD, [facility] CPT-4: 77202 03/11/2016 [id number]) 84044 EST. PATIENT, LEVEL IV Diagnosis: Type 2 diabetes mellitus with hyperglycemia[ICD10: E11.65] Diagnosis: Localized edema[ICD10: R60.0] Diagnosis: Other conjunctivitis[ICD10: H10.89] Diagnosis: Obstructive sleep apnea (adult) (pediatric)[ICD10: G47.33] Diagnosis: Unspecified asthma, uncomplicated[ICD10: J45.909] Diagnosis: VAC STREP PNEUMONIAE-FLU[ICD10: Z23] Rika Motta MD, [facility] CPT-4: 37345 02/26/2016 [id number]) 54884 EST. PATIENT, LEVEL IV Diagnosis: Essential (primary) hypertension[ICD10: I10] Diagnosis: Paroxysmal atrial fibrillation[ICD10: I48.0] Diagnosis: Type 2 diabetes mellitus with hyperglycemia[ICD10: E11.65] Diagnosis: Obstructive sleep apnea (adult) (pediatric)[ICD10: G47.33] Diagnosis: Chronic obstructive pulmonary disease, unspecified[ICD10: J44.9] Rika Motta MD, [facility] CPT-4: 79156 02/02/2016 ([id number]) 60976 EST. 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 PATIENT, LEVEL IV Diagnosis: Type 2 diabetes mellitus with hyperglycemia[ICD10: E11.65] Diagnosis: Generalized anxiety disorder[ICD10: F41.1] Diagnosis: Essential (primary) hypertension[ICD10: I10] Diagnosis: Restless legs syndrome[ICD10: G25.81] Diagnosis: Dysuria[ICD10: R30.0] Rika Motta MD, [facility] CPT-4: 72418 11/27/2015 23816 EST. PATIENT, LEVEL IV Diagnosis: Addisonian crisis[ICD10: E27.2] Arlette Motta MD, [facility] CPT-4 : 91556 11/12/2015 38554 EST. PATIENT, LEVEL IV Diagnosis: Acute bronchitis due to other specified organisms[ICD10: J20.8] Diagnosis: Other acute sinusitis[ICD10: J01.80] Diagnosis: Other malaise[ICD10: R53.81] Diagnosis: Cough[ICD10: R05] Arlette Motta MD, [facility] CPT-4: 98104 11/10/2015 61406 EST. PATIENT, LEVEL IV Diagnosis: Pain in left knee[ICD10: M25.562] Diagnosis: Cellulitis of right toe[ICD10: L03.031] Arlette Motta MD, [facility] CPT-4: 82562 10/27/2015 ([id number]) 23196 EST. PATIENT, LEVEL IV Diagnosis: Essential (primary) hypertension[ICD10: I10] Diagnosis: Localized edema[ICD10: R60.0] Diagnosis: Type 2 diabetes mellitus with hyperglycemia[ICD10: E11.65] Rika Motta MD, [facility] CPT-4: 07086 09/22/2015 ([id number]) 19075 EST. PATIENT, LEVEL IV Diagnosis: Essential (primary) hypertension[ICD10: I10] Diagnosis: Type 2 diabetes mellitus with hyperglycemia[ICD10: E11.65] Diagnosis: Cellulitis of right toe[ICD10: L03.031] Rika Motta MD, [facility] CPT-4: 03227 09/01/2015 ([id number]) 23895 EST. PATIENT, LEVEL IV Diagnosis: Type 2 diabetes mellitus with hyperglycemia[ICD10: E11.65] Diagnosis: Essential (primary) hypertension[ICD10: I10] Diagnosis: Generalized anxiety disorder[ICD10: F41.1] Diagnosis: Hypothyroidism, unspecified[ICD10: E03.9] Diagnosis: Body mass index (BMI) 40.0-44.9, adult[ICD10: Z68.41] Rika Motta MD, [facility] CPT-4: 84047 08/10/2015 32471 EST. PATIENT, LEVEL IV Diagnosis: Acute bronchitis due to other specified organisms[ICD10: J20.8] Diagnosis: Pain in left knee[ICD10: M25.562] Diagnosis: Type 2 diabetes mellitus with hyperglycemia[ICD10: E11.65] Arlette Motta MD, [facility] CPT-4: 26814 06/26/2015 ([id number]) 27278 EST. PATIENT, LEVEL IV Diagnosis: Cellulitis of right lower limb[ICD10: L03.115] Diagnosis: Type 2 diabetes mellitus with hyperglycemia[ICD10: E11.65] Diagnosis: Essential (primary) hypertension[ICD10: I10] Diagnosis: Edema, unspecified[ICD10: R60.9] Rika Motta MD, [facility] CPT-4: 83849 04/14/2015 ([id number]) 26548 EST. PATIENT, LEVEL IV Diagnosis: Essential (primary) hypertension[ICD10: I10] Diagnosis: Type 2 diabetes mellitus with hyperglycemia[ICD10: E11.65] Diagnosis: Localized edema[ICD10: R60.0] Diagnosis: Dysuria[ICD10: R30.0] Rika Motta MD, [facility] CPT-4: 18761 03/03/2015 ([id number]) 24263 EST. PATIENT, LEVEL III Diagnosis: Blister of leg[ICD9: 916.2] Diagnosis: Rash[ICD9: 782.1] Diagnosis: EDEMA[ICD9: 782.3] Tessie Motta MD, [facility] CPT-4: 25392 01/15/2015 ([id number]) 78012 EST. PATIENT, LEVEL IV Diagnosis: Cellulitis, leg[ICD9: 682.6] Diagnosis: DIABETES TYPE II[ICD9: 250.00] Tessie Motta MD, [facility] CPT- 4: 16200 01/01/2015 ([id number]) Miscellaneous no charge Diagnosis: CVA (cerebral vascular accident)[ICD9: 434.91] Isabella Motta MD, [facility] CPT-4: 50532 12/25/2014 ([id number]) 24492 EST. PATIENT, LEVEL IV Diagnosis: ESSENTIAL HYPERTENSION[ICD9: 401.9] Diagnosis: DM W/O COMPLICATION TYPE II, UNCONTROLLED[ICD9: 250.02] Diagnosis: EDEMA[ICD9: 782.3] Diagnosis: Dysuria[ICD9: 788.1] Rika Motta MD, [facility] CPT-4: 70457 11/04/2014 ([id number]) 01838 EST. PATIENT, LEVEL IV Diagnosis: EDEMA[ICD9: 782.3] Diagnosis: Cellulitis of right leg[ICD9: 682.6] Diagnosis: Allergic rhinitis[ICD9: 477.9] Rika Motta MD, [facility] CPT-4: 50287 09/08/2014 ([id number]) 79586 EST. PATIENT, LEVEL IV Diagnosis: EDEMA[ICD9: 782.3] Diagnosis: ESSENTIAL HYPERTENSION[ICD9: 401.9] Diagnosis: DIABETES TYPE II[ICD9: 250.00] Diagnosis: Cellulitis of right leg[ICD9: 682.6] Rika Motta MD, [facility] CPT-4: 13191 08/29/2014 ([id number]) 80014 EST. PATIENT, LEVEL III Diagnosis: EDEMA[ICD9: 782.3] Diagnosis: DIABETES TYPE II[ICD9: 250.00] Tessie Motta MD, [facility] CPT- 4: 72467 06/30/2014 ([id number]) 49229 EST. PATIENT, LEVEL IV Diagnosis: EDEMA[ICD9: 782.3] Diagnosis: DM W/O COMPLICATION TYPE II, UNCONTROLLED[ICD9: 250.02] Diagnosis: Sciatica[ICD9: 724.3] Tessie Motta MD, [facility] CPT-4: 43054 06/12/2014 ([id number]) 37120 EST. PATIENT, LEVEL III Diagnosis: Cellulitis, leg[ICD9: 682.6] Diagnosis: EDEMA[ICD9: 782.3] Rika Motta MD, [facility] CPT-4: 16886 05/26/2014 ([id number]) 24162 EST. PATIENT, LEVEL IV Diagnosis: DIABETES TYPE II[ICD9: 250.00] Diagnosis: Chronic sinusitis[ICD9: 473.9] Tessie Motta MD, [facility] CPT- 4: 86928 04/15/2014 ([id number]) 41849 EST. PATIENT, LEVEL IV Diagnosis: DM W/O COMPLICATION TYPE II, UNCONTROLLED[ICD9: 250.02] Diagnosis: CHRONIC SINUSITIS[ICD9: 473.9] Diagnosis: EDEMA[ICD9: 782.3] Diagnosis: Right knee pain[ICD9: 719.46] Rika Motta MD, [facility] CPT-4: 33163 03/25/2014 ([id number]) 85077 EST. PATIENT, LEVEL IV Diagnosis: Blister of leg[ICD9: 916.2] Diagnosis: EDEMA[ICD9: 782.3] Diagnosis: DM W/O COMPLICATION TYPE II, UNCONTROLLED[ICD9: 250.02] Diagnosis: ESSENTIAL HYPERTENSION[ICD9: 401.9] Rika Motta MD, [facility] CPT-4: 68388 03/03/2014 ([id number]) 21636 EST. PATIENT, LEVEL IV Diagnosis: CELLULITIS OF LEG[ICD9: 682.6] Diagnosis: Diabetes mellitus type 2, uncontrolled[ICD9: 250.02] Diagnosis: ESSENTIAL HYPERTENSION[ICD9: 401.9] Diagnosis: EDEMA[ICD9: 782.3] Tessie Motta MD, [facility] CPT-4: 60733 02/13/2014 ([id number]) 00811 EST. PATIENT, LEVEL IV Diagnosis: Diabetes mellitus type 2, uncontrolled[ICD9: 250.02] Tessie Motta MD, [facility] CPT-4: 03368 01/27/2014 ([id number]) 24121 EST. PATIENT, LEVEL III Diagnosis: OPEN WND KNEE/LEG/ANKLE[ICD9: 891.0] Diagnosis: EDEMA[ICD9: 782.3] Rika Motta MD, [facility] CPT-4: 97414 12/26/2013 ([id number]) 55947 EST. PATIENT, LEVEL III Diagnosis: Cellulitis of right leg[ICD9: 682.6] Diagnosis: OPEN WND KNEE/LEG/ANKLE[ICD9: 891.0] Rika Motta MD, [facility] CPT-4: 08260 12/12/2013 ([id number]) 64225 EST. PATIENT, LEVEL IV Diagnosis: Asthma exacerbation[ICD9: 493.92] Diagnosis: COUGH[ICD9: 786.2] Diagnosis: EDEMA[ICD9: 782.3] Rika Motta MD, [facility] CPT-4: 56376 11/14/2013 ([id number]) 32917 EST. PATIENT, LEVEL III Diagnosis: OPEN WND KNEE/LEG/ANKLE[ICD9: 891.0] Diagnosis: EDEMA[ICD9: 782.3] Rika Motta MD, [facility] CPT-4: 27717 10/21/2013 ([id number]) 81070 EST. PATIENT, LEVEL IV Diagnosis: ESSENTIAL HYPERTENSION[SNOMED: 40885261] Diagnosis: Right knee pain[ICD9: 719.46] Diagnosis: OPEN WND KNEE/LEG/ANKLE[ICD9: 891.0] Rika Motta MD, [facility] CPT-4: 46775 10/03/2013 ([id number]) Miscellaneous no charge Diagnosis: Open wound of leg[ICD9: 891.0] Rika Motta MD, [facility] CPT-4: 83255 09/27/2013 72021 EST. PATIENT, LEVEL II Diagnosis: Open wound of leg[ICD9: 891.0] Diagnosis: Wrist pain, left[ICD9: 719.43] Rika Motta MD, [facility] CPT-4: 85332 09/23/2013 ([id number]) 35560 EST. PATIENT, LEVEL IV Diagnosis: CELLULITIS OF LEG[ICD9: 682.6] Diagnosis: ESSENTIAL HYPERTENSION[SNOMED: 60050482] Diagnosis: EDEMA[ICD9: 782.3] Rika Motta MD, [facility] CPT-4: 47725 09/20/2013 ([id number]) 40128 EST. PATIENT, LEVEL IV Diagnosis: Open wound of right lower leg[ICD9: 891.0] Diagnosis: DM W/O COMPLICATION TYPE II, UNCONTROLLED[SNOMED: 03059448] Diagnosis: Edema[ICD9: 782.3] Rika Motta MD, [facility] CPT-4: 67062 09/10/2013 ([id number]) 77649 EST. PATIENT, LEVEL III Diagnosis: DM W/O COMPLICATION TYPE II, UNCONTROLLED[SNOMED: 14290423] Diagnosis: EDEMA[ICD9: 782.3] Tessie Motta MD, [facility] CPT-4: 00279 08/19/2013 ([id number]) 52563 EST. PATIENT, LEVEL IV Diagnosis: EDEMA[ICD9: 782.3] Diagnosis: DIABETES TYPE II[SNOMED: 782774040] Diagnosis: HYPOTHYROIDISM[ICD9: 244.9] Diagnosis: LUMBAGO[ICD9: 724.2] Diagnosis: SCIATICA[ICD9: 724.3] Tessie Motta MD, [facility] CPT-4: 71445 08/12/2013 ([id number]) 54974 EST. PATIENT, LEVEL IV Diagnosis: DIABETES TYPE II[SNOMED: 549453969] Diagnosis: EDEMA[ICD9: 782.3] Diagnosis: HYPOTHYROIDISM[ICD9: 244.9] Diagnosis: Encounter for long-term (current) use of other medications[ICD9: V58.69] Diagnosis: LUMBAGO[ICD9: 724.2] Rika Motta MD, [facility] CPT-4: 62096 08/01/2013 ([id number]) 59284 EST. PATIENT, LEVEL III Diagnosis: Blister of right foot[ICD9: 917.2] Rika Motta MD [facility] CPT-4: 58805 07/19/2013 ([id number]) 52270 EST. PATIENT, LEVEL III Diagnosis: Cellulitis of right leg[ICD9: 682.6] Diagnosis: ESSENTIAL HYPERTENSION[SNOMED: 62188822] Diagnosis: EDEMA[ICD9: 782.3] Rika Motta MD, [facility] CPT-4: 83927 07/15/2013 ([id number]) 19523 EST. PATIENT, LEVEL IV Diagnosis: DIABETES TYPE II[SNOMED: 835256415] Diagnosis: BACKACHE[ICD9: 724.5] Diagnosis: Muscle spasms of neck[ICD9: 728.85] Tessie Motta MD, [facility] CPT-4: 73350 06/27/2013 ([id number]) 15263 EST. PATIENT, LEVEL IV Diagnosis: DM W/O COMPLICATION TYPE II, UNCONTROLLED[SNOMED: 44625388] Diagnosis: EDEMA[ICD9: 782.3] Diagnosis: OBESITY[ICD9: 278.00] Diagnosis: WHEEZING[ICD9: 786.07] Tessie Motta MD, [facility] CPT-4: 98910 06/10/2013 ([id number]) 30738 EST. PATIENT, LEVEL IV Diagnosis: CHRONIC SINUSITIS[ICD9: 473.9] Diagnosis: WHEEZING[ICD9: 786.07] Diagnosis: ACUTE BRONCHITIS[ICD9: 466.0] Diagnosis: Back pain[ICD9: 724.5] Tessie Motta MD [facility] CPT-4: 00747 05/07/2013 ([id number]) 34875 EST. PATIENT, LEVEL IV Diagnosis: EDEMA[ICD9: 782.3] Diagnosis: COPD (chronic obstructive pulmonary disease) with acute bronchitis[ ICD9: 491.22] Tessie Motta MD [facility] CPT-4: 47525 04/16/2013 ([id number]) 34316 EST. PATIENT, LEVEL IV Diagnosis: Lumbago[ICD9: 724.2] Diagnosis: DM W/O COMPLICATION TYPE II, UNCONTROLLED[SNOMED: 74748364] Diagnosis: EDEMA[ICD9: 782.3] Rika Motta MD [facility] CPT-4: 25111 03/21/2013 ([id number]) 60213 EST. PATIENT, LEVEL IV Diagnosis: Abdominal pain[ICD9: 789.00] Diagnosis: EDEMA[ICD9: 782.3] Diagnosis: DIABETES TYPE II[SNOMED: 896603355] Tessie Motta MD [facility] CPT-4: 58263 02/12/2013 ([id number]) 09117 EST. PATIENT, LEVEL III Diagnosis: EDEMA[ICD9: 782.3] Diagnosis: RESPIRATORY ABNORM NEC[ICD9: 786.09] Tessie Motta MD [facility] CPT-4: 73391 02/04/2013 ([id number]) 72268 EST. PATIENT, LEVEL IV Diagnosis: Edema[ICD9: 782.3] Diagnosis: ESSENTIAL HYPERTENSION[SNOMED: 24762918] Tessie Motta MD [facility] CPT-4: 55560 01/17/2013 ([id number]) 56766 EST. 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 PATIENT, LEVEL IV Diagnosis: Cellulitis of left leg[ICD9: 682.6] Diagnosis: DIABETES TYPE II[SNOMED: 614622043] Diagnosis: ESSENTIAL HYPERTENSION[SNOMED: 76193421] Diagnosis: EDEMA[ICD9: 782.3] Rika Motta MD, [facility] CPT-4: 26407 12/20/2012 ([id number]) 95648 EST. PATIENT, LEVEL III Diagnosis: Acute bronchitis[ICD9: 466.0] Diagnosis: COUGH[ICD9: 786.2] Tessie Motta MD, [facility] CPT-4: 81295 10/29/2012 ([id number]) 93910 EST. PATIENT, LEVEL IV Diagnosis: ESSENTIAL HYPERTENSION[SNOMED: 50079208] Diagnosis: DIABETES TYPE II[SNOMED: 802658033] Diagnosis: HYPOTHYROIDISM[ICD9: 244.9] Tessie Motta MD [facility] CPT- 4: 21515 09/06/2012 ([id number]) 21099 EST. PATIENT, LEVEL IV Diagnosis: DIABETES TYPE II[SNOMED: 849687842] Diagnosis: ESSENTIAL HYPERTENSION[SNOMED: 46849474] Diagnosis: Diarrhea[ICD9: 787.91] Tessie Motta MD, [facility] CPT-4: 64063 08/23/2012 ([id number]) 16465 EST. PATIENT, LEVEL III Diagnosis: ESSENTIAL HYPERTENSION[SNOMED: 94377156] Diagnosis: Gastroenteritis[ICD9: 558.9] Rika Motta MD, [facility] CPT-4: 72994 08/13/2012 ([id number]) 57838 EST. PATIENT, LEVEL IV Diagnosis: Diarrhea[ICD9: 787.91] Diagnosis: ESSENTIAL HYPERTENSION[SNOMED: 61023264] Diagnosis: DM W/O COMPLICATION TYPE II, UNCONTROLLED[SNOMED: 17935880] Rika Motta MD, [facility] CPT-4: 49189 08/07/2012 ([id number]) 72992 EST. PATIENT, LEVEL III Diagnosis: Acute sinusitis[ICD9: 461.9] Diagnosis: Thrush[ICD9: 112.0] Rika Motta MD, [facility] CPT-4: 27628 07/06/2012 ([id number]) 05783 EST. PATIENT, LEVEL IV Diagnosis: ESSENTIAL HYPERTENSION[SNOMED: 85522313] Diagnosis: DIABETES TYPE II[SNOMED: 847245450] Tessie Motta MD [facility] CPT-4: 82829 06/07/2012 ([id number]) 95898 EST. PATIENT, LEVEL IV Diagnosis: ESSENTIAL HYPERTENSION[SNOMED: 80902281] Diagnosis: ACUTE SINUSITIS[ICD9: 461.9] Diagnosis: Labial cyst[ICD9: 624.8] Tessie Motta MD [facility] CPT-4: 99266 05/28/2012 ([id number]) 36437 EST. PATIENT, LEVEL IV Diagnosis: ESSENTIAL HYPERTENSION[SNOMED: 63386968] Diagnosis: EDEMA[ICD9: 782.3] Tessie Motta MD [facility] CPT-4: 46618 05/17/2012 ([id number]) 67461 EST. PATIENT, LEVEL IV Diagnosis: EDEMA[ICD9: 782.3] Diagnosis: ESSENTIAL HYPERTENSION[SNOMED: 96278487] Diagnosis: Diarrhea[ICD9: 787.91] Diagnosis: ALLERGIC RHINITIS[ICD9: 477.9] Tessie Motta MD [facility] CPT- 4: 37243 05/02/2012 ([id number]) 40729 EST. PATIENT, LEVEL IV Diagnosis: ACUTE SINUSITIS[ICD9: 461.9] Diagnosis: ESSENTIAL HYPERTENSION[SNOMED: 16353130] Diagnosis: ALLERGIC RHINITIS[ICD9: 477.9] Tessie Motta MD [facility] CPT- 4: 75509 04/10/2012 ([id number]) 37380 EST. PATIENT, LEVEL IV Diagnosis: ESSENTIAL HYPERTENSION[SNOMED: 52938472] Diagnosis: Foreign body in foot or toe[ICD9: 917.6] Diagnosis: EDEMA[ICD9: 782.3] Tessie Motta MD [facility] CPT-4: 24448 02/27/2012 ([id number]) 69850 EST. PATIENT, LEVEL IV Diagnosis: CELLULITIS OF FOOT[ICD9: 682.7] Diagnosis: DIABETES TYPE II[SNOMED: 599346953] Diagnosis: EDEMA[ICD9: 782.3] Tessie Motta MD [facility] CPT-4: 70352 02/15/2012 ([id number]) 57489 EST. PATIENT, LEVEL IV Diagnosis: EDEMA[ICD9: 782.3] Diagnosis: ESSENTIAL HYPERTENSION[SNOMED: 39033558] Diagnosis: ACUTE SINUSITIS[ICD9: 461.9] Diagnosis: Dysuria[ICD9: 788.1] Tessie Motta MD, [facility] CPT-4: 48764 02/01/2012 ([id number]) 84801 EST. PATIENT, LEVEL IV Diagnosis: DIABETES TYPE II[SNOMED: 411643144] Diagnosis: Diverticulitis[ICD9: 562.11] Tessie Motta MD, [facility] CPT- 4: 44529 12/14/2011 ([id number]) 19110 EST. PATIENT, LEVEL IV Diagnosis: Nausea vomiting and diarrhea[ICD9: 787.01] Diagnosis: ESSENTIAL HYPERTENSION[SNOMED: 78689010] Diagnosis: DM W/O COMPLICATION TYPE II, UNCONTROLLED[SNOMED: 68566425] Tessie Motta MD [facility] CPT-4: 06992 11/30/2011 ([id number]) 74084 EST. PATIENT, LEVEL IV Diagnosis: ESSENTIAL HYPERTENSION[SNOMED: 09644524] Diagnosis: DIABETES TYPE II[SNOMED: 406671716] Diagnosis: COUGH[ICD9: 786.2] Tessie Motta MD, [facility] CPT-4: 38640 11/17/2011 ([id number]) Patient admitted to the hospital from clinic (NO CHARGE) Diagnosis: Tachycardia[ICD9: 785.0] Diagnosis: Dyspnea[ICD9: 786.09] Diagnosis: Wheezing[ICD9: 786.07] Diagnosis: FALL AGAINST OBJECT[ICD9: E888.1] Diagnosis: ANXIETY STATE[ICD9: 300.00] Diagnosis: ESSENTIAL HYPERTENSION[SNOMED: 05199973] Diagnosis: Chronic depression[ICD9: 311] Diagnosis: Diabetes mellitus type 2, uncontrolled[SNOMED: 34655367] Tessie Motta MD, [facility] CPT-4: 80656K 11/03/2011 ([id number]) 23967 EST. PATIENT, LEVEL IV Diagnosis: DIABETES TYPE II[SNOMED: 983736174] Diagnosis: ANXIETY STATE[ICD9: 300.00] Diagnosis: DEPRESSIVE DISORDER NEC[ICD9: 311] Diagnosis: Ulcer of toe[ICD9: 707.15] Tessie Motta MD, [facility] CPT- 4: 50348 10/24/2011 ([id number]) 17241 EST. PATIENT, LEVEL IV Diagnosis: EDEMA[ICD9: 782.3] Diagnosis: ESSENTIAL HYPERTENSION[SNOMED: 16157297] Diagnosis: ANXIETY STATE[ICD9: 300.00] Tessie Motta MD, [facility] CPT- 4: 84701 09/26/2011 68622 EST. PATIENT, LEVEL IV Diagnosis: EDEMA[ICD9: 782.3] Diagnosis: ESSENTIAL HYPERTENSION[SNOMED: 64474258] Rika Motta MD, [facility] CPT-4: 79646 09/20/2011 ([id number]) 45717 EST. PATIENT, LEVEL IV Diagnosis: ACUTE SINUSITIS[ICD9: 461.9] Diagnosis: Allergic rhinitis[ICD9: 477.9] Diagnosis: Cough[ICD9: 786.2] Tessie Motta MD, [facility] CPT-4: 88291 09/01/2011 ([id number]) 66150 EST. PATIENT, LEVEL IV Diagnosis: Chronic sinusitis[ICD9: 473.9] Diagnosis: Anxiety, generalized[ICD9: 300.02] Tessie Motta MD, [facility] CPT-4: 17653 08/15/2011 30123 EST. PATIENT, LEVEL IV Diagnosis: ACUTE SINUSITIS[ICD9: 461.9] Diagnosis: Tachycardia[ICD9: 785.0] Diagnosis: Anxiety[ICD9: 300.00] Diagnosis: Dehydration[ICD9: 276.51] Diagnosis: Sciatica[ICD9: 724.3] Tessie Motta MD, [facility] CPT-4: 10815 08/09/2011 08905 EST. PATIENT, LEVEL IV Diagnosis: DIABETES TYPE II[SNOMED: 006058425] Diagnosis: Sciatica[ICD9: 724.3] Diagnosis: Yeast infection[ICD9: 112.9] Tessie Motta MD, [facility] CPT- 4: 20482 08/01/2011 ([id number]) 44825 EST. PATIENT, LEVEL IV Diagnosis: DIABETES TYPE II[SNOMED: 237987988] Diagnosis: ACUTE MAXILLARY SINUSITIS[ICD9: 461.0] Diagnosis: Fibromyalgia[ICD9: 729.1] [facility] CPT-4: 50300 06/20/2011 98545 EST. PATIENT, LEVEL IV Diagnosis: ESSENTIAL HYPERTENSION[SNOMED: 08195018] Diagnosis: DIABETES TYPE II[SNOMED: 589059118] Diagnosis: ACUTE MAXILLARY SINUSITIS[ICD9: 461.0] [facility] CPT-4: 30673 04/18/2011 Plan of Care Planned Activity Notes Codes Status Date Appointment: [phone] (15 min) Moderate 03/21/2018 Appointment: Rika Bello WPtel: [phone] [phone] [place] (30 min) Complex 03/20/2018 Visit Plan: [...] directed 03/12/2018 Appointment: [phone] [place] (15 min) Moderate 03/12/2018 Patient Education: Patient Medication Summary Completed 03/12/2018 Patient Education: Back Pain Completed 03/12/2018 Appointment: [phone] [phone] [place] (30 min) Complex 03/08/2018 Appointment: [...] next refill 02/20/2018 Appointment: Rika Bello WPtel: [phone] (15 min) Moderate 02/20/2018 Patient Education: Patient Medication Summary Completed 02/20/2018 Patient Education: Patient Medication Summary Completed 02/20/2018 Patient Education: Back Pain Completed 02/20/2018 Care Plan: Iron Pending 02/20/2018 Appointment: Rika Bello WPtel: [phone] [phone] (30 min) Complex 02/19/2018 Appointment: Rika Bello WPtel: [facility] (15 min) Moderate 02/01/2018 Visit Plan: UA negative -no culture indicated 12/14/2017 Appointment: Lab Draw 12/14/2017 Patient Education: Patient Medication Summary Completed 12/14/2017 Visit Plan: Dysuria-urinary incontinence-culture urine HTN- elevated today-monitor at home -follow up with criminal defense lawyer 11/27/2017 Appointment: Rika Bello WPtel: [phone] [phone] (15 min) Moderate 11/27/2017 Patient Education: Patient [...] Medication Summary Completed 10/27/2017 Care Plan: SCREENINGMAMMOGRAPHYDIGITAL [facility] : 86160-8 Pending 10/27/2017 Appointment: [facility]elton [facility] [phone] [facility] [place] (15 min) Moderate 10/03/2017 Appointment: [facility] [phone] [facility] [place] (15 min) Moderate 10/02/2017 Appointment: Rika Bello WPtel: [phone] (30 min) Complex 09/29/2017 Visit Plan: Continuous [...] acutely worsened. 09/27/2017 Appointment: Arlette Skelton WPtel: [facility]5 [facility] (30 min) Complex 09/27/2017 Patient Education: Patient Medication Summary Completed 09/27/2017 Care Plan: CT HEAD/BRAIN W/O DYE LOINC : 90529-1 Pending 09/27/2017 Visit Plan: DM-patient noncompliant with [...] over- medication. 09/15/2017 Appointment: Rika Bello WPtel: [phone] [place] (30 min) Complex 09/15/2017 Patient Education: Patient Medication Summary Completed 09/15/2017 Appointment: Rika Bello WPtel: [phone] [place] (30 min) Complex 09/12/2017 Appointment: Rika Bello WPtel: [address] [place], [place] [phone] (30 min) Complex 09/07/2017 Visit Plan: Vfo-ihuplqozvm-pk changes Anemia-check cbc today Dental infection-on clindamycin per Dr Bryant-start probiotics Also needs to monitor blood sugars closely 08/18/2017 Appointment: Rika Bello WPtel: [phone] [phone] (30 min) Complex 08/18/2017 Patient Education: Patient [...] not resolve 08/03/2017 Appointment: Rika Bello WPtel: [facility]5 [phone] (30 min) Complex 08/03/2017 Patient Education: Patient [...] 1 week, sooner if symptoms worsen 07/27/2017 Visit Plan: Hypertension - well controlled [...] is stable, monitor for acute changes. 07/27/2017 Appointment: Rika Bello WPtel: [phone] [phone] (30 min) Complex 07/27/2017 Patient Education: Patient [...] medications 06/13/2017 Appointment: [phone] (15 min) Moderate 06/13/2017 Patient Education: Patient Medication Summary Completed 06/13/2017 Visit Plan: Dental abscess - will send RX - pt is to keep her appointment with her dentist - pt is to notify clinic if symptoms do not improve, if they worsen, or with any other acute changes, questions, or concerns. 04/21/2017 Appointment: [facility]el[phone] [facility] (30 min) Complex 04/21/2017 Patient Education: [...] Q HS RESCHEDULE APPT WITH DR ASPEN HoIvbcspose-ptdhmanyb-kn for bactroban ointment provided and instructed on use RND-agzeldyjyi-kr change in medications Mildly elevated liver enzymes-discussed with Dr motta-suspect due to gabapentin-will monitor levels Gait instability-again recommend patient use walker as well as PT 04/18/2017 Appointment: [facility] [phone] [phone] [place] (30 min) Complex 04/18/2017 Patient [...] become less controlled. Low potassium- check labs RNY-jwizjdjyem-ob changes Afib-check digoxin level with labs Abdominal [...] become less controlled. Low potassium- check labs HLH-ervuvpinqs-wn changes Afib-check digoxin level with labs Abdominal pain-refill levsin for prn use -call if pain uncontrolled 03/27/2017 Appointment: Rika Bello WPtel: [address] [place], [place] [phone] (30 min) Complex 03/27/2017 Patient Education: Patient Medication Summary Completed 03/27/2017 Appointment: Rika Bello WPtel: [address] [place], [place] [phone] (30 min) Complex 03/24/2017 Visit Plan: Hypertension - well controlled - continue with current medications, continue with no added salt diet. Pt has been encouraged to exercise daily. The pt has been advised to call the office if there are any acute concerns about change in blood pressure readings at home. DM-uncontrolled- discussed strict diet and exercise with patient Low qpazolvke-zymnzbqf-aqanxbbu to monitor Abd bppx-ranvptuv-fl changes 02/27/2017 Appointment: Rika Bello WPtel: [address] [place], [place] [phone] (30 min) Complex 02/27/2017 Patient Education: Patient [...] this regimen. 02/21/2017 Appointment: Rika Bello WPtel: [address] [place], [place] [phone] (30 min) Complex 02/21/2017 Patient Education: Patient Medication Summary Completed 02/21/2017 Appointment: Rika Bello WPtel: [address] [place], [place] [phone] (30 min) Complex 02/20/2017 Visit Plan: Generalized [...] labs on Monday02/17/2017 Appointment: Rika Bello WPtel: [address] [place], [place] [phone] (30 min) Complex 02/17/2017 Patient Education: Patient Medication Summary Completed 02/17/2017 Visit Plan: COPD-recent hospitalization with pneumonia- symptoms improved-discussed continuous oxygen use at home-appt with Dr Odonnell tomorrow Afib-check digoxin level-patient just finished zpack Diarrhea-continue probiotics-check stool if diarrhea persists DM-bring log to next appt 02/13/2017 Appointment: Rika Bello WPtel: [address] [place], [place] [phone] (30 min) Complex 02/13/2017 Patient Education: Patient Medication Summary Completed 02/13/2017 Patient Education: Hypertension Completed 02/13/2017 Visit Plan: DM-very uncontrolled-refer to Dr Raines for management RIght shoulder and arm pain-fell 5 days ago-xray shoulder and arm Chronic sinusitis-RX for Dr Kim compound gentamicin nasal spray 01/30/2017 Appointment: Rika Bello WPtel: [address] [place], [place] [phone] (30 min) Complex 01/30/2017 Patient Education: Patient Medication Summary Completed 01/30/2017 Care Plan: Referral Order SNOMED-CT : [id number] Pending 01/30/2017 Visit Plan: Hypertension - well [...] every night DM-check Hgb A1C Hypothyroidism-check level Lznznpj-lklshrujfm-qzv well controlled- increase cymbalta-recommend counseling 01/16/2017 Appointment: Rika Bello WPtel: [address] [place], [place] [phone] (30 min) Complex 01/16/2017 Patient Education: Patient Medication Summary Completed 01/16/2017 Appointment: Rika Bello WPtel: [facility]3 [phone] (30 min) Complex 01/10/2017 Visit Plan: Sinusitis [...] or concerns. 12/13/2016 Appointment: Arlette Skelton WPtel: [facility]9 [facility]66[facility] [[email or web address]] (30 min) Complex 12/13/2016 Patient Education: Patient [...] heal. 11/11/2016 Appointment: Rika Bello WPtel: [address] [place], [place] [phone] (30 min) Complex 11/11/2016 Patient Education: Patient Medication Summary Completed 11/11/2016 Care Plan: BMI Above normal followup SELF-MGMT EDUC & TRAIN 1 PT Pending 2016 Appointment: Rika Bello WPtel: 26 [address] [place], [place] [phone] (30 min) Complex 11/08/2016 Visit Plan: Shingles-rash scabbed-no further treatment indicated-patient to call if pain uncontrolled N/V-check labs including UA DM- check labs today Thrush-RX for nystatin 10/28/2016 Appointment: Rika Bello WPtel: [address] [place], [place] [phone] (30 min) Complex 10/28/2016 Patient Education: Patient Medication Summary Completed 10/28/2016 Patient Education: Obesity Completed 10/28/2016 Appointment: Rika Bello WPtel: [address] [place], [place] [phone] (30 min) Complex 10/25/2016 Appointment: Lab Draw 10/21/2016 Patient Education: Patient Medication Summary Completed 10/21/2016 Visit Plan: Right knee pain-patient to schedule appt with Dr Allison Garcia-right arm-concerned for shingles-RX for acyclovir provided and instructed on use-call if symptoms do not resolve or if any worse. 10/13/2016 Appointment: Rika Bello WPtel: [address] [place], [place] [phone] (30 min) Complex 10/13/2016 Patient Education: Patient Medication Summary Completed 10/13/2016 Appointment: Rika Bello WPtel: [address] [place], [place] [phone] (30 min) Complex 10/11/2016 Appointment: Rika Bello WPtel: [address] [place], [place] [phone] [facility] - Annual Wellness Visit 10/04/2016 Visit Plan: [...] as directed. 09/23/2016 Appointment: Rika Bello WPtel: [phone] (15 min) Moderate 09/23/2016 Patient Education: [...] 09/13/2016 Care Plan: Referral Order SNOMED-CT : 318845006 Pending 09/13/2016 Appointment: Rika Bello WPtel: [address] [place], [place] [phone] (30 min) Complex 09/09/2016 Appointment: Rika Bello WPtel: [address] [place], [place] [phone] (30 min) Complex 09/08/2016 Visit Plan: Hypertension [...] Anemia-check CBC 08/09/2016 Appointment: Rika Bello WPtel: [phone] (30 min) Complex 08/09/2016 Patient Education: [...] control. Yeast infection -rx for nystatin powder USTL-fmwaapabi-mypoww pneumonia -afib-patient is oxygen dependent due to severely compromised pulmonary and cardiac systems-will send orders to [facility] to continue oxygen 07/26/2016 Visit Plan: [...] control. Yeast infection -rx for nystatin powder [facility]-fjqrbujsn-umlhex pneumonia -afib-patient is oxygen dependent due to severely compromised pulmonary and cardiac systems-will send orders to [facility] to continue oxygen 07/26/2016 Visit Plan: [...] control. Yeast infection -rx for nystatin powder [facility]-uvfktjlop-gdttzk pneumonia -afib-patient is oxygen dependent due to severely compromised pulmonary and cardiac systems-will send orders to [facility] to continue oxygen 07/26/2016 Appointment: Rika Bello WPtel: [phone] [place] (30 min) Complex 07/26/2016 Patient Education: Patient Medication Summary Completed 07/26/2016 Appointment: Rika Bello WPtel: [address] [phone] [place] (30 min) Complex 07/22/2016 Appointment: Rika Bello WPtel: 1015 [phone] [place] (30 min) Complex 07/18/2016 Appointment: Rika Bello WPtel: [address] [phone] [place] (30 min) Complex 07/01/2016 Appointment: Lab Draw 06/24/2016 Patient Education: Patient Medication Summary Completed 06/24/2016 Appointment: Rika Bello WPtel: [address] [phone] [place] (30 min) Complex 2016 Visit [...] Completed 05/24/2016 Appointment: Rika Bello WPtel: [address] [phone] [place] (30 min) Complex 05/17/2016 Visit [...] glucose control. 04/19/2016 Appointment: Rika Bello WPtel: [facility]8 [facility] [place] [address] (30 min) Complex 04/19/2016 Patient Education: Patient Medication Summary Completed 04/19/2016 Patient Education: Obesity Completed 04/19/2016 Appointment: Rika Bello WPtel: [address] [place], [place] [phone] [place] [address] (30 min) Complex 04/18/2016 Visit Plan: Diabetes [...] to allow for greater blood glucose control. CJR-ybfhjijjbn-el changes in medications at this time. Dysuria-UA negative-needs pelvic exam due to pt c/o vaginal discharge 04/11/2016 Appointment: Rika Bello WPtel: [facility]6 [phone] (30 min) Complex 04/11/2016 Patient Education: Patient Medication Summary Completed 04/11/2016 Patient Education: Obesity Completed 04/11/2016 Appointment: Rika Bello WPtel: [address] [place], [place] [phone] (30 min) Complex 04/08/2016 Visit Plan: Chronic [...] peripheral edema. 03/11/2016 Appointment: Rika Bello WPtel: [address] [place] [phone] (30 min) Complex 03/11/2016 Patient Education: Patient [...] on use 02/26/2016 Appointment: Rika Bello WPtel: [facility]5 [phone] (30 min) Complex 02/26/2016 Patient Education: Patient Medication Summary Completed 02/26/2016 Appointment: Rika Bello WPtel: [address] [place], [place] [phone] (30 min) Complex 02/25/2016 Appointment: Rika Bello WPtel: [facility]5 [phone] (30 min) Complex 02/23/2016 Appointment: Lab Draw [...] mold 02/02/2016 Appointment: Rika Bello WPtel: 1015 [phone] (30 min) Complex 02/02/2016 Patient Education: Patient Medication Summary Completed 02/02/2016 Appointment: Tessie Motta WPtel: [facility]5 [facility] [place] (15 min) Moderate 01/21/2016 Appointment: Rika Bello WPtel: 1015 [phone] (30 min) Complex 01/14/2016 Visit Plan: Hypertension [...] Patient Medication Summary Completed 12/17/2015 Visit Plan: Gvwvago-gteafupqr-hckd head injury on 12/05-did not go to ER-patient sent for STAT CT scan of head-schedule appt with Dr Dyer Adrenal insufficiency-patient suddenly stopped prednisone-instructed patient to restart and taper prednisone as directed Rib apfr-odeoc-iaxfpc fall-xray ribs 12/08/2015 Appointment: Rika Bello WPtel: [facility]5 [phone] (30 min) Complex 12/08/2015 Appointment: Rika Bello WPtel: [facility]5 [phone] (15 min) Moderate 12/08/2015 Patient Education: Patient Medication Summary Completed 12/08/2015 Care Plan: COMPLETE CBC AUTOMATED LOINC : 91255-4 Pending 12/08/2015 Visit Plan: Hypertension - well [...] 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 11/12/2015 Referral: Jackie, Mimi Referral Initiated 11/12/2015 Patient Education: Patient Medication [...] Mejia 10/27/2015 Appointment: Rika Bello WPtel: 1015 [phone] (30 min) Complex 10/27/2015 Patient Education: Patient Medication Summary Completed 10/27/2015 Patient Education: Obesity Completed 10/27/2015 Care Plan: Referral Order SNOMED-CT : [id number] Pending 10/27/2015 Referral: Matt Pavon HPtel:[phone] [facility] Referral Initiated 10/21/2015 Visit Plan: Medicare Exam [...] stomach pain. 09/29/2015 Appointment: Rika Bello WPtel: [address] [place], [place] [phone] [facility] - Welcome to Medicare visit 09/29/2015 Patient Education: Patient Medication Summary Completed 09/29/2015 Patient Education: Obesity Completed 09/29/2015 Care Plan: Referral Order SNOMED-CT : 084706752 Pending 09/29/2015 Care Plan: BMI Above normal [...] one month for weight check. 08/10/2015 Appointment: [facility] - Welcome to Medicare visit 08/10/2015 Patient [...] min) Complex 05/05/2015 Appointment: Rika Bello WPtel: [address] [place], [place] [phone] (30 min) Complex 04/27/2015 Visit Plan: Cellulitis [...] Completed 03/03/2015 Appointment: Rika Bello WPtel: [address] [phone] (30 min) Complex 02/24/2015 Appointment: (30 min) Complex 01/29/2015 Appointment: Tessie Motta WPtel: 1015 [facility] (15 min) Moderate 01/22/2015 Visit Plan: Blister of right lower leg-fluids removed with #27 gauze needle and compression dressing applied-refer to wound care for evaluation and management-patient is at high risk of developing large ulcer due to diabetes, noncompliance and poor hygiene. Rash right leg-start oral abx and bactroban as directed Rowfk-jxqyaibejavm-tqy markie wraps, elevate leg, and again instructed [...] out. 01/01/2015 Appointment: Tessie Motta WPtel: 1015 [facility] (15 min) Moderate 01/01/2015 Patient Education: Patient [...] Care Plan: COMPLETE CBC AUTOMATED LOINC : 82472-0 Ordered 11/04/2014 Care Plan: URINALYSIS NONAUTO W/O SCOPE LOINC : 61212-4 Ordered 11/04/2014 Appointment: Follow up 10/07/2014 Visit Plan: Edema - pt has been advised to elevate legs to prevent dependent edema, compression has been recommended to help to naturally decrease peripheral edema. Diuretic use has been discussed and pt has been instructed in appropriate use of such medication as necessary to further attempt to reduce peripheral edema. Rkqifscphg-dxkwhrex-wz change in treatment- continue compression hose-decrease salt/sodium in diet-call if symptoms worsen or do not resolve Lrsjnngzc-swpjvde-tzdiqdxq nasonex to twice daily as directed 09/08/2014 [...] worsen. 06/12/2014 Appointment: Rika Bello WPtel: [address] [phone] Follow up 06/12/2014 Patient Education: Patient Medication Summary Completed 06/12/2014 Patient Education: .Amazing charts Exercise for Sciatica Completed 06/12/2014 Care Plan: COMPLETE CBC AUTOMATED LOINC : 64904-6 Ordered 06/12/2014 Visit Plan: Cellulitis - continue [...] Summary Completed 05/26/2014 Appointment: Tessie Motta WPtel: [facility]5 [facility] Lab Draw 04/21/2014 Patient Education: Patient [...] home. 02/13/2014 Appointment: Tessie Motta WPtel: [phone] [facility] Follow up 02/13/2014 Patient Education: Patient Medication [...] units daily. 01/27/2014 Appointment: Tessie Motta WPtel: [address] [place], [place] [phone] Follow up 01/27/2014 Patient Education: Patient Medication Summary Completed 01/27/2014 Appointment: Rika Bello WPtel: [address] [place], [place] [phone] Follow up 01/02/2014 Visit Plan: Open wound of ubo-zwizdzhq-clkgudtl with dressing changes as directed-call for increase [...] Summary Completed 12/26/2013 Appointment: Tessie Motta WPtel: [address] [place], [place] [phone] Follow up 12/24/2013 Visit Plan: Open wound of right leg-debrided today in the office-instructed on wound care-follow up as directed. Call with any questions, concerns, or worsening symptoms. Culture of wound today in the office-RX for abx sent to patient's pharmacy and instructed on use. Patient verbalized understanding of plan. 12/12/2013 Appointment: Rika Bello WPtel: [address] [phone] [place] Other 12/12/2013 Patient Education: Patient Medication Summary Completed 12/12/2013 Appointment: Tessie Motta WPtel: [phone] [facility] Follow up 11/20/2013 Visit Plan: negative ua 11/18/2013 Appointment: Tessie Motta WPtel: [facility]5 [facility] Lab Draw 11/18/2013 Patient Education: Patient [...] Completed 11/14/2013 Visit Plan: Open wound right hhb-qphvgb-fvtg if opens up Edema - pt has been advised to elevate legs to prevent dependent edema, compression has been recommended to help to naturally decrease peripheral edema. Diuretic use has been discussed and pt has been instructed in appropriate use of such medication as necessary to further attempt to reduce peripheral edema. 10/21/2013 Appointment: Rika Bello WPtel: [phone] Follow up 10/21/2013 Patient Education: Patient Medication Summary Completed 10/21/2013 Appointment: Rika Bello WPtel: [address] [phone] Follow up 10/17/2013 Appointment: Tessie Motta WPtel: [phone] [facility] Follow up 10/10/2013 Visit Plan: Hypertension - [...] hours as needed for pain. 10/03/2013 Appointment: Rkia Bello WPtel: [facility]5 [phone] Follow up 10/03/2013 Patient Education: Patient Medication [...] of plan. 09/23/2013 Appointment: Tessie Motta WPtel: [facility]5 [facility] [place] Nurse Visit 09/23/2013 Patient Education: [...] 2 WEEKS. 09/20/2013 Appointment: Rika Bello WPtel: [address] [place], [place] [phone] [place] [address] Follow up 09/20/2013 Patient Education: Patient Medication Summary Completed 09/20/2013 Patient Education: Hypertension Completed 09/20/2013 Appointment: Tessie Motta WPtel: [address] [place] [address] Follow up 09/16/2013 Visit Plan: Edema - [...] verbalized understanding. 09/10/2013 Appointment: Rika Bello WPtel: [address] [place], [place] [phone] [place] Other 09/10/2013 Patient Education: Patient Medication Summary Completed 09/10/2013 Appointment: Rika Bello WPtel: [address] [place], [place] [phone] [place] Follow up 09/02/2013 Visit Plan: Diabetes [...] peripheral edema. 08/19/2013 Appointment: Rika Bello WPtel: [phone] [facility] 08/19/2013 Patient Education: Patient Medication Summary [...] as scheduled 08/01/2013 Appointment: Rika Bello WPtel: [address] [place] [address] Follow up 08/01/2013 Patient Education: Patient Medication Summary Completed 08/01/2013 Appointment: Rika Bello WPtel: [address] [place] [address] Follow up 07/25/2013 Appointment: Tessie Motta WPtel: [address] [place] [address] Follow up 07/25/2013 Visit Plan: Bister of foot-dressing changes discussed with patient and instructed her to keep her foot clean and dry-STOP WEARING FLIP FLOPS as they are causing friction over blistered area. Keep follow up appointment as scheduled. Call for redness, drainage or other s/s of infection. 07/19/2013 Appointment: Rika Bello WPtel: [address] [place] [address] Other 07/19/2013 Patient Education: Patient Medication Summary [...] peripheral edema. 07/15/2013 Appointment: Rika Bello WPtel: [facility]5 [phone] [place] Other 07/15/2013 Patient Education: Patient Medication Summary Completed 07/15/2013 Patient Education: Hypertension Completed 07/15/2013 Appointment: Ace Rika WPtel: [facility]5 [facility] [place] [address] Follow up 07/01/2013 Appointment: Rika Bello WPtel: [address] [place], [place] [phone] [place] Lab Draw 06/28/2013 Patient Education: Patient [...] 900mg tid. 06/27/2013 Appointment: Tessie Motta WPtel: [address] [place] [address] Other 06/27/2013 Patient Education: Patient Medication Summary Completed 06/27/2013 Appointment: Tessie Motta WPtel: [address] [place] [address] Other 06/24/2013 Visit Plan: Diabetes Mellitus - [...] THE AFTERNOON. 06/10/2013 Appointment: Tessie Motta WPtel: [address] [place] [address] Follow up 06/10/2013 Patient Education: Patient Medication Summary Completed 06/10/2013 Appointment: Tessie Motta WPtel: [address] [place], [place] [phone] Follow up 06/06/2013 Visit Plan: Sinusitis - [...] acutely worsen. 05/07/2013 Appointment: Tessie Motta WPtel: [address] [place] [address] Follow up 05/07/2013 Patient Education: Patient Medication Summary Completed 05/07/2013 Appointment: Tessie Motta WPtel: [phone] [facility] Follow up 04/30/2013 Visit Plan: Edema - [...] acute changes. 04/16/2013 Appointment: Tessie Motta WPtel: 1015 [facility] Follow up 04/16/2013 Patient Education: Patient Medication Summary Completed 04/16/2013 Appointment: Tessie Motta WPtel: 1015 [facility] Follow up 04/04/2013 Visit Plan: Lumbago-continue [...] peripheral edema. 03/21/2013 Appointment: Rika Bello WPtel: [facility]5 [facility] [place] [address] Follow up 03/21/2013 Patient Education: Patient Medication Summary Completed 03/21/2013 Appointment: Tessie Motta WPtel: [address] [place], [place] [phone] Follow up 03/20/2013 Appointment: Tessie Motta WPtel: [address] [place], [place] [email or web address] Follow up 03/05/2013 Visit Plan: Edema-significantly improved- [...] less controlled. 02/12/2013 Appointment: Rika Bello WPtel: [facility]5 [facility] [place] [address] follow up 02/12/2013 Patient Education: Patient Medication [...] Dyspnea - recommended pt to see new ticket clerk when he gets to [facility] for further evaluation and work-up. 02/04/2013 Appointment: Tessie Motta WPtel: [address] [place], [place] [phone] Follow up 02/04/2013 Patient Education: Patient Medication [...] not improve. 01/17/2013 Appointment: Rika Bello WPtel: [phone] Follow up 01/17/2013 Patient Education: Patient Medication Summary Completed 01/17/2013 Patient Education: Hypertension Completed 01/17/2013 Appointment: Tessie Motta WPtel: [address] [place], [place] [phone] Follow up 01/16/2013 Appointment: Tessie Motta WPtel: [address] [place] [address] Follow up 01/10/2013 Appointment: Rika Bello WPtel: [address] [place], [place] [phone] [place] Lab Draw 01/01/2013 Patient Education: Patient [...] Urinary urgency-check UA Hypothyroidism-check labs 12/31/2012 Appointment: Ace Rika WPtel: [facility]5 [phone] Follow up 12/31/2012 Appointment: Ace Rika WPtel: [phone] Sick 12/31/2012 Patient Education: Patient Medication [...] Check labs. 12/20/2012 Appointment: Rika Bello WPtel: [facility]5 [phone] Sick 12/20/2012 Patient Education: Patient Medication Summary Completed 12/20/2012 Patient Education: Hypertension Completed 12/20/2012 Appointment: Tessie Motta WPtel: [facility] Lab Draw 11/05/2012 Patient Education: Patient Medication Summary Completed 11/05/2012 Visit Plan: Bronchitis - acute case of bronchitis identified. Pt has been given antibiotics, breathing treatments as appropriate, and pt has been instructed to call if symptoms are not improved, or if symptoms acutely worsen. 10/29/2012 Appointment: Tessie Motta WPtel: 101 [facility] Sick 10/29/2012 Patient Education: Patient Medication Summary Completed 10/29/2012 Visit Plan: Joint Injection-left SI joint - Pt was given post - injection instructions. The pt has been advised to use antiinflammatories post injection today, ice to the injected site, call if redness, warmth, or increased pain occurs at the site of injection. 09/21/2012 Appointment: Rika Bello WPtel: 1011 [phone] Follow up 09/21/2012 Patient Education: Patient Medication [...] control. 09/06/2012 Appointment: Tessie Motta WPtel: 1011 [facility] Follow up 09/06/2012 Patient Education: Patient [...] readings are starting to become less controlled. Nihkcncz-yrjuacpm-hguyqiwn probiotic-continue to hold metformin and repeat labs before appt in 2 weeks. Call for abd pain, worsening diarrhea, or other concerns. 08/23/2012 Appointment: Tessie Motta WPtel: 1013 [facility] Follow up 08/23/2012 Patient Education: Patient Medication [...] OF PLAN. 08/13/2012 Appointment: Rika Bello WPtel: [address]2 [phone] Follow up 08/13/2012 Patient Education: Patient [...] acute concerns. 08/07/2012 Appointment: Rika Bello WPtel: [facility] [place] [phone] Other 08/07/2012 Patient Education: Patient Medication Summary Completed 08/07/2012 Patient Education: Hypertension Completed 08/07/2012 Visit Plan: UA-sent for culture 07/19/2012 Appointment: Rika Bello WPtel: [facility]8 [phone] Lab Draw 07/19/2012 Patient Education: Patient Medication [...] as directed 07/06/2012 Appointment: Rika Bello WPtel: [facility]6 [phone] [facility] 07/06/2012 Patient Education: Patient Medication Summary Completed [...] given today 06/07/2012 Appointment: Tessie Motta WPtel: 1010 [facility] Follow up 06/07/2012 Appointment: Tessie Motta WPtel: 1015 [facility] [place] Follow up 06/07/2012 Patient Education: [...] 10 days. 05/28/2012 Appointment: Rika Bello WPtel: 1010 [phone] Follow up 05/28/2012 Patient Education: Patient Medication [...] edema. 05/17/2012 Appointment: Rika Bello WPtel: [address] [place] [phone] [place] [address] Follow UP 05/17/2012 Patient Education: Patient Medication [...] office 05/02/2012 Appointment: Tessie Motta WPtel: 1015 [facility] Follow up 05/02/2012 Patient Education: Patient Medication Summary Completed 05/02/2012 Patient Education: Hypertension Completed 05/02/2012 Appointment: Tess[facility] Motta WPtel: [facility] Follow up 04/25/2012 Visit Plan: Sinusitis - [...] concerns. 04/10/2012 Appointment: Rika Bello WPtel: [facility] [phone] Follow up 04/10/2012 Patient Education: Patient [...] I&D on Monday02/27/2012 Appointment: Rika Bello WPtel: [address] [place] [address] Follow up 02/27/2012 Patient Education: Patient Medication [...] to thighs. 02/15/2012 Appointment: Rika Bello WPtel: [address] [place], [place] [id number] [place] [address] Follow up 02/15/2012 Patient Education: Patient Medication [...] toes to thighs. RX sent to patient's [facility]. Chest xray at the hospital as well. [...] of urine. 02/01/2012 Appointment: Rika Bello WPtel: [facility]7 [phone] Other 02/01/2012 Patient Education: [...] left buttocks 12/14/2011 Appointment: Tessie Motta WPtel: [facility]9 [facility] Other 12/14/2011 Patient Education: Patient Medication Summary Completed 12/14/2011 Appointment: Tessie Motta WPtel: [facility]2 [facility] Follow up 12/08/2011 Visit Plan: N/V/D [...] less controlled. 11/30/2011 Appointment: Rika Bello WPtel: 1011 [facility] Other 11/30/2011 Patient Education: [...] back pain. 11/17/2011 Appointment: Tessie Motta WPtel: 1014 [facility] Other 11/17/2011 Patient Education: Patient Medication [...] - uncontrolled - will consult her primary criminal defense lawyer for assistance with control her her heart rate. Ulcer of toe - continue with topical antibiotics as previously directed, return to clinic as previously directed, call for acute change in symptoms, worsening redness, warmth, discharge. 11/03/2011 Appointment: Tessie Motta WPtel: 1015 [facility] Other 11/03/2011 Patient Education: Patient Medication Summary [...] discharge. 10/24/2011 Appointment: Tessie Motta WPtel: 101[facility] Other 10/24/2011 Patient Education: Patient Medication Summary [...] lymphoma. 09/26/2011 Appointment: Rika Bello WPtel: 1015 [facility] [place] [address] Other 09/26/2011 Patient Education: Patient Medication Summary [...] Completed 2011 Appointment: Tessie Motta WPtel: 1015 [facility] Other 09/05/2011 Visit Plan: Sinusitis - [...] the medication. 09/01/2011 Appointment: Tessie Motta WPtel: [facility] Other 09/01/2011 Patient Education: Patient Medication Summary Completed 09/01/2011 Visit Plan: Sinusitis - continue with ciprofloxacin and start on corcidin HBP. Anxiety - start the xanax 0.5mg 1/2 pill twice daily. 08/15/2011 Appointment: Tessie Motta WPtel: [facility] Other 08/15/2011 Appointment: Tessie Motta WPtel: [address] [place] [address] Other 08/15/2011 Patient Education: Patient Medication Summary [...] the hospital. 08/09/2011 Appointment: Rika Bello WPtel: [facility] [place] [phone] [place] Other 08/09/2011 Patient Education: Patient Medication [...] not resolve 08/01/2011 Appointment: Rika Bello WPtel: [address] [place] [address] Other 08/01/2011 Patient Education: Patient Medication Summary Completed 08/01/2011 Appointment: Rika Bello WPtel: [address] [place] [address] [place] Other 07/26/2011 Appointment: Tessie Motta WPtel: [address] [place] [address] Other 07/18/2011 Visit Plan: Diabetes Mellitus - [...] sparingly. 06/20/2011 Appointment: Tessie Motta WPtel: [phone] [id number] Other 06/20/2011 Patient Education: Patient Medication Summary [...] 1 month. 04/18/2011 Appointment: Tessie Motta WPtel: [address] [place], [place] [id number] Other 04/18/2011 Patient Education: Patient Medication Summary Completed 04/18/2011 Patient Education: High Blood Pressure: Essential Hypertension Completed 2010 Appointment: Tessie Motta WPtel: [address] [place], [place] [phone] Other 04/12/2011 Appointment: Tessie Motta WPtel: [address] [place], [place] [phone] Other 02/16/2011 Referral: Matt Pavon HPtel:[phone] Referral Initiated Referral: Yareli Raines Referral [...] Follow up in the office as directed Pt has been instructed to stop eating [...] MORNING AND 20MG IN THE AFTERNOON. . Diabetes Mellitus - controlled - per [...] symptom management sparingly. . Open wound right uuw-nprgsg-vqvz if opens up Edema - pt has been advised to elevate legs to prevent dependent edema, compression has been recommended to help to naturally decrease peripheral edema. Diuretic use has been discussed and pt has been instructed in appropriate use of such medication as necessary to further attempt to reduce peripheral edema. RICE - Rest Ice Compression (knee brace) [...] greater blood glucose control. . Open wound of uig-uszqzdck-jnrlshxl with dressing changes as directed-call for increase [...] as needed #60 with next refill . Hypertension - well controlled - continue with current medications, continue with no added salt diet. Pt has been encouraged to exercise daily. The pt has been advised to call the office if there are any acute concerns about change in blood pressure readings at home. UC-ogcemdyrdtgf-qpuemttra strict diet and exercise with patient Low gezfrfqab-xrcruran-bvhbggub to monitor Abd fyqx-blsivvvz-aj changes . Diabetes Mellitus - controlled - [...] from 600mg tid to 900mg tid. . Cellulitis - culture of wound today [...] further attempt to reduce peripheral edema. INCREASE LEVEMIR TO 25 UNITS TWICE DAILY-IF [...] and understands the consequences of over-medication. . Edema - pt has been advised [...] medications as her recently diagnosed with lymphoma. check UA . Dysuria-urinary incontinence-culture urine HTN-elevated today-monitor at home -follow up with criminal defense lawyer . Dental abscess - will send RX - pt is to keep her appointment with her dentist - pt is to notify clinic if symptoms do not improve , if they worsen, or with any other acute changes, questions, or concerns. . Diabetes Mellitus - controlled - [...] Call if symptoms do not show improvement. Compression hose-RX provided Labs today Lasix and [...] change in blood pressure readings at home. START CHECKING BLOOD SUGARS!!!! BRING LOG TO [...] in one month for weight check. . ADMIT FROM CLINIC TO HOSPITAL - [...] - uncontrolled - will consult her primary criminal defense lawyer for assistance with control her her heart [...] attempt to reduce peripheral edema. Dysuria-check UA INCREASE LEVEMIR TO 10 UNITS TWICE DAILY [...] to further attempt to reduce peripheral edema. CHECK LABS INCLUDING UA . Shingles-rash scabbed-no further treatment indicated-patient to call if pain uncontrolled N/V-check labs including UA DM-check labs today Thrush-RX for nystatin . Left wrist pain-recent fall-xray left wrist Open wound of right leg-debrided today in the office-instructed on wound care- follow up as directed. Call with any questions, concerns, or worsening symptoms. Patient verbalized understanding of plan. . Bister of foot-dressing changes discussed with patient and instructed her to keep her foot clean and dry-STOP WEARING FLIP FLOPS as they are causing friction over blistered area. Keep follow up appointment as scheduled. Call for redness, drainage or other s/s of infection. WOUND CARE EVALUATION KEEP BLISTER CLEAN AND [...] leg-start oral abx and bactroban as directed Zdwvr-sbvimoglpjmb-ikt markie wraps, elevate leg, and again instructed patient to cut back on pop and salty foods. Monitor your blood pressure at home and [...] annabel to her chronic back pain. . Edema--recommend patient be admitted for further [...] with results.Patient and verbalized understanding of plan. TOT-jffroumexme-ozheu labs-monitor blood pressure and heart rate closely- recommend ER if symptoms do not improve. . Open wound of leg-debrided and cleaned [...] AND DRINKS. REPEAT LABS IN 2 WEEKS. pt to start on LEVEMIR 5 units [...] weeks. Increase victoza to 1.8 units daily. TOUJEO 40 units BID Novolg 10 units [...] readings are starting to become less controlled. Rzlzszah-aslzemcf-eusxbqnn probiotic-continue to hold metformin and repeat labs before appt in 2 weeks. Call for abd pain, worsening diarrhea, or other concerns. . UA-sent for culture . Edema - pt has been advised [...] improve. KEEP FOLLOW UP APPOINTMENT WITH ORTH[facility] [address] [place] [address]. 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 . Hypertension - well controlled - continue [...] symptoms are not controlled with the medication. mammogram appt with Dr Pavon for colonscopy [...] further attempt to reduce peripheral edema. . Muo-xwzselfagq-gy changes Anemia-check cbc today Dental infection-on clindamycin per Dr Bryant-start probiotics Also needs to monitor blood sugars closely FOR CHOLESTEROL - THE NEW DOSE OF [...] demerol injection today at the hospital. . Edema-significantly improved- pt has been advised [...] with any acute changes, questions or concerns. INCREASE LANTUS TO 20 UNITS IN THE [...] Q HS RESCHEDULE APPT WITH DR ASPEN HoXzeezxkpi-jjualqpxt-tu for bactroban ointment provided and instructed on use XTP-wfscuzdody-lo change in medications Mildly elevated liver enzymes-discussed with Dr motta-suspect due to gabapentin-will monitor levels Gait instability-again recommend patient use walker as well as PT . Cellulitis - continue with oral antibiotics [...] further attempt to reduce peripheral edema. INCREASE LEVEMIR TO 20 UNITS IN THE [...] to allow for greater blood glucose control. MTD-giyvgmjiau-wn changes in medications at this time. Dysuria-UA [...] for possible injections Rash-under breasts-refill nystatin . Sinusitis - Pt has acute [...] times Pain uncontrolled-change to percocet as directed. CONTINUE PROBIOTICS CHECK STOOL FOR CDIFF IF [...] 1 week, sooner if symptoms worsen . UA negative -no culture indicated . [...] change in symptoms, worsening redness, warmth, discharge. Nasal spray- use twice daily, one spray [...] is to call for acute concerns. . Cellulitis - continue with oral antibiotics as previously directed, return to clinic as previously directed, call for acute change in symptoms, worsening redness, warmth, discharge. Vdlafiaz-luxezpywktox-mituy labs today-patient has been given orders multiple [...] blood glucose levels pneumovac given today . Edema - pt has been advised to elevate legs to prevent dependent edema, compression has been recommended to help to naturally decrease peripheral edema. Diuretic use has been discussed and pt has been instructed in appropriate use of such medication as necessary to further attempt to reduce peripheral edema. Dyspnea - recommended pt to see new ticket clerk when he gets to [facility] for further evaluation and work-up. . Open wound of right leg-debrided today in the office- instructed on wound care-follow up as directed. Call with any questions, concerns, or worsening symptoms. Patient verbalized understanding of plan. . negative ua refer to Dr Raines increase levemir to 50 units in the morning and 45 at bedtime x 1 week then 50units BID . DM-very uncontrolled-refer to Dr Raines for management RIght shoulder and arm pain-fell 5 days ago-xray shoulder and arm Chronic sinusitis-RX for Dr Cervantes's compound gentamicin nasal spray Lactobacillus 1 po twice daily. Check labs [...] WE WILL CALL HER WITH THE RESULTS. Take Levemir 16 units every night . [...] right great toe-refer to wound care . Kloplel-jgoyjiipw-meas head injury on 12/05-did not go to ER-patient sent for STAT CT scan of head-schedule appt with Dr Dyer Adrenal insufficiency-patient suddenly stopped prednisone-instructed patient to restart and taper prednisone as directed Rib oiku-xpsri-ffrkhm fall-xray ribs . Patient presented with acute symptoms of stroke. Accompanied to ER for emergent evaluation. . Patient presented with acute symptoms of stroke. Accompanied to ER for emergent evaluation. Monitor your blood pressure at home and [...] is to call for acute concerns. . Bronchitis - will check labs, [...] occurs at the site of injection. CHECK CMP TODAY . Edema - pt [...] next appointment for review. Patient verbalized understanding. I sent a prescription for lasix and potassium to [facility]. Take 2 TABLETS of LASIX and 2 [...] toes to thighs. RX sent to patient's [facility]. Chest xray at the hospital as well. [...] to give very small sample of urine. Check labs-cbc, cmp, hgb a1c. We will [...] to reduce peripheral edema. Check labs. . Diabetes Mellitus - Uncontrolled - per [...] TODAY Right knee pain-recent fall-xray right knee the dose on 01/01/15 PM - take [...] FSBS at home, decrease eating out. . ER follow up - Dr. 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 . Open wound of right leg-debrided today in the office- instructed on wound care-follow up as directed. Call with any questions, concerns, or worsening symptoms. Culture of wound today in the office-RX for abx sent to patient's pharmacy and instructed on use. Patient verbalized understanding of plan. . Hypertension - well controlled - continue [...] her headaches to improve with treatment . Hypertension - well controlled - continue [...] 6 hours as needed for pain. . Edema - pt has been advised to elevate legs to prevent dependent edema, compression has been recommended to help to naturally decrease peripheral edema. Diuretic use has been discussed and pt has been instructed in appropriate use of such medication as necessary to further attempt to reduce peripheral edema. Ospszvfmix-psubredw-gb change in treatment-continue compression hose-decrease salt/sodium in diet-call if symptoms worsen or do not resolve Lakkvmfik-ewrqkkj-wagdehlz nasonex to twice daily as directed . Diabetes Mellitus - Uncontrolled - per [...] control. 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 Diabetes Mellitus [...] control. Yeast infection -rx for nystatin powder CSMQ-izagnghoy-cuffsv imquyzlzx-jicr-rbkivpn is oxygen dependent due to severely compromised pulmonary and cardiac systems-will send orders to [facility] to continue oxygen . Sinusitis - Pt [...] improved, or if symptoms acutely worsen. Monitor you blood sugars as directed at [...] instability, COPD and increased risk of falls Continue to hold metformin and lipitor Monitor [...] FLUIDS. PATIENT AND VERBALIZED UNDERSTANDING OF PLAN. INCREASE TOPROL TO 100MG TWICE DAILY Cipro [...] the office- follow up in 10 days. TAKE AN EXTRA 30MG CYMBALTA TO=90MG DAILY CHECK LABS RECOMMEND COUNSELING CALL ABOUT GOING BACK TO PULMONARY REHAB GET APPT WITH PAIN MANAGEMENT FOR INJECTIONS STOP BY [facility] [employer] FOR NEW CPAP SUPPLIES . Hypertension - [...] every night DM-check Hgb A1C Hypothyroidism-check level Gctyzmw-wpotoqworu-nmv well controlled-increase cymbalta-recommend counseling pt is to take lasix 40mg in [...] is stable, monitor for acute changes. . Sinusitis - continue with ciprofloxacin and start on corcidin HBP. Anxiety - start the xanax 0.5mg 1/2 pill twice daily. . Diabetes Mellitus - controlled - [...] Call sooner if area opens up. . Bronchitis - acute case of bronchitis identified. Pt has been given antibiotics, breathing treatments as appropriate, and pt has been instructed to call if symptoms are not improved, or if symptoms acutely worsen. INCREASE LEVEMIR TO 25 UNITS IN THE [...] blood glucose control. . Diabetes Mellitus - Uncontrolled - per [...] control. Yeast infection -rx for nystatin powder NFFK-offiumgiy-kbloxb ilxqqoxjc-jsvh-faldows is oxygen dependent due to severely compromised pulmonary and cardiac systems-will send orders to [facility] to continue oxygen . Chronic sinusitis-rx for gentamicin nasal spray [...] nystatin powder Hypothyroidism-check labs Anemia-check CBC . Diabetes Mellitus - Uncontrolled - I [...] with [facility] as scheduled . Generalized abdominal pain-discussed with Dr Motta-CT [...] to patient's pharmacy-repeat labs on Monday . Celllulitis of foot-suspect foreign body-plan to [...] ER if her symptoms become acutely worsened. Take lasix daily x 5 days Take [...] do not improve or if they worsen. d/c LEVEMIR START TOUJEO 10UNITS DAILY [...] and duoneb QID prn shortness of breath Magnet balm over the counter for the knee. [...] pt is to call for acute concerns. d/c LEVEMIR START TOUJEO 10UNITS DAILY AT [...] patient's pharmacy and instructed on use . Medicare Exam - today we discussed [...] worsening of stomach upset or stomach pain. DR Yareli Raines-you need to reschedule your appt with her -she is a retail pos specialist . Diabetes Mellitus - ucontrolled- I [...] to become less controlled. Low potassium-check labs QJE-wpjhxphhac-ud changes Afib-check digoxin level with labs Abdominal pain-refill levsin for prn use -call if pain uncontrolled DR Yareli Raines-you need to reschedule your appt with her -she is a retail pos specialist . Diabetes Mellitus - ucontrolled- I [...] to become less controlled. Low potassium-check labs IEA-xzwkdjqkjx-yl changes Afib-check digoxin level with labs Abdominal pain-refill levsin for prn use -call if pain uncontrolled RECOMMEND STOPPING THE POP COMPLETELY STOP EATING [...] edema. Dysuria-check UA with c&s if indicated DX sinusitis - discussed expected course with [...] one pill daily. x 1 month. . DM-patient noncompliant with diet-recommend she start [...] consequences of over-medication. . Diabetes Mellitus - Uncontrolled - per [...] she needs to...RESCHEDULE APPT WITH DR RAINES EHN-cmmhregetz-bk change in medications CPAP NEBULIZER CHECK UA [...] so tired Tachycardia-follow up with Dr Dyer INCREASE LEVEMIR TO 15 UNITS IN THE [...] to further attempt to reduce peripheral edema. CPAP NEBULIZER CHECK UA . Hypertension - [...] tired Tachycardia-follow up with Dr Dyer . Cellulitis - continue with oral antibiotics [...]
--- OUTSIDE RECORDS SUMMARY | 2018-06-04 19:02 | XMS REPORT | CCD ---
Author Author [facility] Organization [facility] Address [address] [place] [address] Phone Care Team Providers Care Legislative Analyst Name Role Phone Tessie Motta PP Unavailable CCM Unavailable Summary Purpose Interface Exchange Insurance Providers Payer name Policy type / Coverage type Covered republican ID Effective Begin Date Effective End Date WPS Medicare Part B Medicare Part B [id number] 2015 Unknown [facility] Medicare Part B [id number] Unknown Family history Son Diagnosis Age At [...] College Graduate 08/21/[address]: 332367169 Never smoker 02/11/[address]: 829006058 Never drinks alcohol 02/11/2011 Has the patient ever used illegal drugs? Unknown Has never used illegal drugs 02/11/2011 Allergies, Adverse Reactions, Alerts Substance Reaction Codes Entered Date Inactivated Date Status CODEINE RxNorm: 2670 02/11/2011 No Inactive Date Active * NO KNOWN FOOD ALLERGIES Unknown 02/01/2012 No Inactive Date Active cefdinir RxNorm: 68377 08/07/2012 No Inactive Date Active PENICILLINS Unknown [...] Start Date Stop Date Status Fill Instructions Theresa Perles 100 mg capsule RxNorm: 238024 Capsule(s) Capsule(s) 2 Capsule(s) PO TID as needed 03/21/2018 No Stop Date Active nystatin 100,000 unit/mL oral suspension RxNorm: 727501 Unit(s) 5 Milliliter(s) PO QID swish and swallow 03/21/20182017 Active Percocet 10 mg-325 mg tablet RxNorm: 5283389 1-2 Tablet(s) PO Q6 PRN 03/12/2018 03/26/2018 Active Xanax 0.5 mg tablet RxNorm: 346195 Tablet(s) BID as needed 04/10/2018 Active Slow Fe 47.5 mg iron tablet,extended release RxNorm: 1 Tablet(s) PO every other day 03/12/2018 04/10/2018 Active Slow Fe 47.5 mg iron tablet,extended release RxNorm: 1 Tablet(s) PO 3 x week 02/28/2018 03/11/2018 Inactive promethazine 25 mg tablet RxNorm: 126882 Tablet(s) 1 Tablet(s) PO Q6 PRN TAKE NEEDED ONLY!!! 02/21/2018 No Stop Date Active gabapentin 600 mg tablet RxNorm: 454609 Tablet(s) TAKE ONE & ONE-HALF TABLETS BY MOUTH THREE TIMES DAILY 02/20/20182018 Active Cymbalta 60 mg capsule,delayed release RxNorm: 813557 1 Capsule(s) PO daily take with 30mg tablet 02/20/2018 08/18/2018 Active Vitamin D2 50,000 unit capsule RxNorm: 1186465 1 Capsule(s) PO QW 02/20/2018 04/20/2018 Active Cymbalta 30 mg capsule,delayed release RxNorm: 476939 Capsule(s) TAKE ONE CAPSULE BY MOUTH ONCE DAILY - TAKE WITH THE 60 MG DOSE FOR A TOTAL OF 90 MG 02/20/2018 08/18/2018 Active Vitamin D2 50,000 unit capsule RxNorm: 1436877 1 Capsule(s) PO QW 02/20/2018 02/19/2018 Inactive mupirocin 2 % topical ointment RxNorm: 046969 APPLY TO SORE IN BELLY BUTTON TWICE DAILY 02/15/2018 No Stop Date Active Percocet 10 mg-325 mg tablet RxNorm: 2744440 1-2 Tablet(s) PO Q6 PRN 02/14/2018 02/28/2018 Inactive Jerry Marley U-300 Insulin 300 unit/mL (1.5 mL) subcutaneous pen RxNorm: 0177409 40 Unit(s) SQ BID per dr forbes 02/07/2018 03/08/2018 Inactive nystatin 100,000 unit/mL oral suspension RxNorm: 936901 5 Milliliter(s) PO QID swish and swallow 02/02/2018 02/11/2018 Inactive mupirocin 2 % topical ointment RxNorm: 026661 1 Application TOP BID 01/30/2018 02/08/2018 Inactive Tessalon Perles 100 mg capsule RxNorm: 427171 Capsule(s) 2 Capsule(s) PO TID as needed 01/23/2018 03/20/2018 Inactive Xanax 0.5 mg tablet RxNorm: 938271 Tablet(s) TAKE ONE TABLET BY MOUTH THREE TIMES DAILY NEEDED 01/17/20182017 Inactive ropinirole 1 mg tablet RxNorm: 867004 1 Tablet(s) PO BID 201705/10/2018 Active digoxin 125 mcg tablet RxNorm: 021085 1 Tablet(s) PO daily 05/09/2018 Active Percocet 10 mg-325 mg tablet RxNorm: 1993239 1-2 Tablet(s) PO Q6 PRN 01/04/2018 01/18/2018 Inactive Percocet 10 mg-325 mg tablet RxNorm: 5737648 1-2 Tablet(s) PO Q6 PRN 01/02/2018 01/03/2018 Inactive promethazine 25 mg tablet RxNorm: 784561 Tablet(s) 1 Tablet(s) PO Q6 PRN TAKE NEEDED ONLY!!! 01/02/2018 02/20/2018 Inactive pantoprazole 40 mg tablet,delayed release RxNorm: 361914 TAKE 1 TABLET BY MOUTH ONCE DAILY 12/25/2017 No Stop Date Active mupirocin 2 % topical ointment RxNorm: 315549 1 Application TOP BID 12/22/2017 12/31/2017 Inactive fluconazole 150 mg tablet RxNorm: 118208 1 Tablet(s) PO every other day x 3 doses 12/14/2017 12/23/2017 Inactive hyoscyamine 0.125 mg sublingual tablet RxNorm: 5484363 Tablet(s) 1 Tablet(s) SL TID as needed 12/13/2017 04/11/2018 Active Percocet 10 mg-325 mg tablet RxNorm: 4950060 1-2 Tablet(s) PO Q6 PRN 12/13/2017 12/27/2017 Inactive nystatin 100,000 unit/gram topical powder RxNorm: 239334 APPLY POWDER TOPICALLY 4 TIMES DAILY 12/11/2017 No Stop Date Active Xanax 0.5 mg tablet RxNorm: 825187 Tablet(s) TAKE ONE TABLET BY MOUTH THREE TIMES DAILY NEEDED 12/06/20172017 Inactive nitrofurantoin 50 mg capsule RxNorm: 965523 1 Capsule(s) PO BID 12/01/2017 11/30/2017 Inactive take probiotic BID x 7 days nitrofurantoin 50 mg capsule RxNorm: 955138 1 Capsule(s) PO BID 12/01/2017 12/07/2017 Inactive take probiotic BID x 7 days mupirocin 2 % topical ointment RxNorm: 172166 1 Application TOP BID 11/27/2017 12/06/2017 Inactive Tessalon Perles 100 mg capsule RxNorm: 513228 Capsule(s) 2 Capsule(s) PO TID as needed 11/21/2017 01/22/2018 Inactive nystatin 100,000 unit/mL oral suspension RxNorm: 853720 5 Milliliter(s) PO QID swish and swallow 11/17/2017 11/26/2017 Inactive nystatin 100,000 unit/mL oral suspension RxNorm: 656292 5 Milliliter(s) PO QID swish and swallow 11/17/2017 11/16/2017 Inactive Toprol XL 100 mg tablet,extended release RxNorm: 343656 TAKE ONE TABLET BY MOUTH TWICE DAILY 11/15/2017 No Stop Date Active ropinirole 1 mg tablet RxNorm: 869466 Tablet(s) BID 11/14/2017 01/10/2018 Inactive Diflucan 150 mg tablet RxNorm: 065776 Tablet(s) every other day 1 Tablet(s) PO every other day 11/14/2017 11/16/2017 Inactive Percocet 10 mg-325 mg tablet RxNorm: 3322897 1-2 Tablet(s) PO Q6 PRN 11/09/2017 11/23/2017 Inactive Flonase Allergy Relief 50 mcg/actuation nasal spray, suspension RxNorm: 2520690 2 [place] NASAL daily 11/06/20172017 Inactive cyclobenzaprine 10 mg tablet RxNorm: 841075 Tablet(s) TABLET(S) 1 TABLET(S) PO NEEDED TAKE 1 TABLET BY MOUTH EVERY 8 HOURS NEEDED 2017 No Stop Date Active Cymbalta 30 mg capsule,delayed release RxNorm: 495550 TAKE ONE CAPSULE BY MOUTH ONCE DAILY - TAKE WITH THE 60 MG DOSE FOR A TOTAL OF 90 MG 02/19/2018 Inactive Lantus Solostar U-100 Insulin 100 unit/mL (3 mL) subcutaneous pen RxNorm: 853026 Unit(s) SQ 35 units QAM and 55 units QHS Unit(s) SQ 10/27/2017 02/07/2018 Inactive Wants insulin pens Percocet 10 mg-325 mg tablet RxNorm: 5792335 1-2 Tablet(s) PO Q6 PRN 10/27/2017 11/08/2017 Inactive promethazine 25 mg tablet RxNorm: 420273 Tablet(s) 1 Tablet(s) PO Q6 PRN TAKE NEEDED ONLY!!! 10/27/2017 01/01/2018 Inactive Xanax 0.5 mg tablet RxNorm: 760442 Tablet(s) TAKE ONE TABLET BY MOUTH THREE TIMES DAILY 10/20/2017 12/16/2017 Inactive Tessalon Perles 100 mg capsule RxNorm: 236591 Capsule(s) 2 Capsule(s) PO TID as needed 10/19/2017 11/20/2017 Inactive Diflucan 150 mg tablet RxNorm: 173151 1 Tablet(s) PO every other day 10/15/2017 11/13/2017 Inactive Percocet 10 mg-325 mg tablet RxNorm: 1148830 1-2 Tablet(s) PO Q6 PRN 10/06/2017 10/20/2017 Inactive pantoprazole 40 mg tablet,delayed release RxNorm: 267049 1 Tablet(s) PO BID 10/03/2017 03/31/2018 Active Cymbalta 60 mg capsule,delayed release RxNorm: 047006 TAKE ONE CAPSULE BY MOUTH ONCE DAILY 09/21/2017 02/19/2018 Inactive Diflucan 150 mg tablet RxNorm: 923694 1 Tablet(s) PO every other day 09/15/2017 09/19/2017 Inactive hyoscyamine 0.125 mg sublingual tablet RxNorm: 8570276 1 Tablet(s) SL TID as needed 09/08/2017 12/12/2017 Inactive Lantus Solostar U-100 Insulin 100 unit/mL (3 mL) subcutaneous pen RxNorm: 441112 Unit(s) SQ 35 units QAM and 55 units QHS Unit(s) SQ 09/06/2017 09/20/2017 Inactive Wants insulin pens Lasix 40 mg tablet RxNorm: 651343 TAKE ONE TABLET BY MOUTH TWICE DAILY 08/25/2017 No Stop Date Active ropinirole 1 mg tablet RxNorm: 193727 TAKE ONE TABLET BY MOUTH AT BEDTIME 08/25/2017 11/13/2017 Inactive Lantus U-100 Insulin 100 unit/mL subcutaneous solution RxNorm: 305516 35 units QAM and 55 units QHS Unit(s) SQ 08/21/2017 09/05/2017 Inactive Tessalon Perles 100 mg capsule RxNorm: 265534 Capsule(s) 2 Capsule(s) PO TID as needed 08/18/2017 10/18/2017 Inactive Percocet 10 mg-325 mg tablet RxNorm: 6120876 1-2 Tablet(s) PO Q6 PRN 08/16/2017 08/30/2017 Inactive pantoprazole 40 mg tablet,delayed release RxNorm: 951138 TAKE ONE TABLET BY MOUTH TWICE DAILY 08/14/2017 08/13/2017 Inactive pantoprazole 40 mg tablet,delayed release RxNorm: 065190 1 Tablet(s) PO daily 08/14/2017 10/02/2017 Inactive promethazine 25 mg tablet RxNorm: 854529 Tablet(s) 1 Tablet(s) PO Q6 PRN TAKE NEEDED ONLY!!! 08/11/2017 10/26/2017 Inactive omeprazole 20 mg capsule,delayed release RxNorm: 251565 1 Capsule(s) PO daily TAKE 1 CAPSULE BY MOUTH ONCE DAILY 08/07/2017 10/26/2017 Inactive nystatin 100,000 unit/mL oral suspension RxNorm: 403716 5 Milliliter(s) PO QID swish and swallow 08/07/2017 08/16/2017 Inactive mupirocin 2 % topical ointment RxNorm: 389708 APPLY TO SORE IN BELLY BUTTON TWICE DAILY 08/07/2017 02/14/2018 Inactive omeprazole 20 mg capsule,delayed release RxNorm: 809889 1 Capsule(s) PO BID TAKE 1 CAPSULE BY MOUTH TWICE DAILY 08/03/2017 08/06/2017 Inactive Diflucan 150 mg tablet RxNorm: 443215 1 Tablet(s) PO daily 08/05/2017 Inactive hyoscyamine 0.125 mg sublingual tablet RxNorm: 0218221 1 Tablet(s) SL TID as needed 08/03/2017 09/01/2017 Inactive gentamicin 0.3 % eye drops RxNorm: 187492 2 Drop(s) ophthalmic (eye) TID 08/03/2017 08/09/2017 Inactive Levaquin 500 mg tablet RxNorm: 751626 1 Tablet(s) PO every other day x3 doses 07/27/2017 08/02/2017 Inactive gentamicin 0.3 % eye drops RxNorm: 367837 2 Drop(s) ophthalmic (eye) TID 07/27/2017 08/02/2017 Inactive dicyclomine 10 mg capsule RxNorm: 024275 1 Capsule(s) PO TID 08/02/2017 Inactive Levaquin 500 mg tablet RxNorm: 222545 1 Tablet(s) PO daily 12/201707/26/2017 Inactive Lantus U-100 Insulin 100 unit/mL subcutaneous solution RxNorm: 467580 INJECT 35 UNITS SUBCUTANEOUSLY IN THE MORNING AND 55 UNITS AT BEDTIME 07/24/2017 09/05/2017 Inactive Tessalon Perles 100 mg capsule RxNorm: 538839 2 Capsule(s) PO TID as needed 07/24/2017 08/17/2017 Inactive Percocet 10 mg-325 mg tablet RxNorm: 8685364 1-2 Tablet(s) PO Q6 PRN 07/21/2017 08/04/2017 Inactive promethazine 25 mg tablet RxNorm: 215317 1 Tablet(s) PO Q6 PRN 1 Tablet(s) PO Q6 PRN 07/19/2017 07/26/2017 Inactive Cartia XT 240 mg capsule,extended release RxNorm: 585880 1 Capsule(s) PO daily 06/27/2017 06/21/2018 Active potassium chloride ER 20 mEq tablet,extended release RxNorm: 127213 Tablet(s) TAKE ONE TABLET BY MOUTH ONCE DAILY 06/21/2017 No Stop Date Active Lantus U-100 Insulin 100 unit/mL subcutaneous solution RxNorm: 178333 35 units QAM and 55 units QHS Unit(s) SQ 06/21/2017 07/20/2017 Inactive Please provide 30 day supply Percocet 10 mg-325 mg tablet RxNorm: 0701795 1-2 Tablet(s) PO Q6 PRN 06/21/2017 07/05/2017 Inactive Cartia XT 180 mg capsule,extended release RxNorm: 337135 Capsule(s) BID 06/21/2017 06/26/2017 Inactive Xanax 0.5 mg tablet RxNorm: 768663 Tablet(s) TAKE ONE TABLET BY MOUTH THREE TIMES DAILY 06/21/2017 08/19/2017 Inactive digoxin 125 mcg tablet RxNorm: 620351 1 Tablet(s) PO daily 10/18/2017 Inactive gabapentin 600 mg tablet RxNorm: 238834 Tablet(s) TAKE ONE & ONE-HALF TABLETS BY MOUTH THREE TIMES DAILY 06/21/20172017 Inactive dicyclomine 10 mg capsule RxNorm: 856251 1 Capsule(s) PO TID 07/26/2017 Inactive Lantus U-100 Insulin 100 unit/mL subcutaneous solution RxNorm: 615669 35 units QAM and 55 units QHS Unit(s) SQ 06/13/2017 06/20/2017 Inactive Please provide 30 day supply potassium chloride ER 20 mEq tablet,extended release RxNorm: 313845 TAKE ONE TABLET BY MOUTH ONCE DAILY 06/02/2017 Inactive cyclobenzaprine 10 mg tablet RxNorm: 601634 Tablet(s) TABLET(S) 1 TABLET(S) PO NEEDED TAKE 1 TABLET BY MOUTH EVERY 8 HOURS NEEDED 201711/02/2017 Inactive Tessalon Perles 100 mg capsule RxNorm: 007630 2 Capsule(s) PO TID as needed 06/01/2017 07/23/2017 Inactive promethazine 25 mg tablet RxNorm: 038480 1 Tablet(s) PO Q6 PRN 1 Tablet(s) PO Q6 PRN 05/25/2017 06/01/2017 Inactive gabapentin 600 mg tablet RxNorm: 677548 TAKE ONE & ONE-HALF TABLETS BY MOUTH THREE TIMES DAILY 05/23/2017 06/20/2017 Inactive promethazine 25 mg tablet RxNorm: 465582 1 Tablet(s) PO Q6 PRN 1 Tablet(s) PO Q6 PRN 05/19/2017 05/24/2017 Inactive Flagyl 500 mg tablet RxNorm: 239068 1 Tablet(s) PO TID 201605/26/2017 Inactive Levaquin 500 mg tablet RxNorm: 432231 1 Tablet(s) PO daily 05/16/2017 Inactive Tessalon Perles 100 mg capsule RxNorm: 750015 2 Capsule(s) PO TID as needed 05/17/2017 05/31/2017 Inactive Flagyl 500 mg tablet RxNorm: 134959 1 Tablet(s) PO TID 201605/16/2017 Inactive hyoscyamine 0.125 mg sublingual tablet RxNorm: 0473417 1 Tablet(s) SL TID as needed 05/17/2017 06/12/2017 Inactive Levaquin 500 mg tablet RxNorm: 882442 1 Tablet(s) PO daily 05/23/2017 Inactive Cymbalta 60 mg capsule,delayed release RxNorm: 507135 1 Capsule(s) PO daily take with 30mg tablet 05/16/2017 08/13/2017 Inactive Bentyl 10 mg capsule RxNorm: 689497 1 Capsule(s) PO TID as needed 05/12/2017 06/10/2017 Inactive Levsin 0.125 mg tablet RxNorm: 7051922 1 Tablet(s) PO Q4 PRN 1-2 Tablet(s) PO Q4 PRN 05/11/2017 05/11/2017 Inactive nystatin 100,000 unit/gram topical powder RxNorm: 359067 Gram(s) APPLY POWDER TOPICALLY 4 TIMES DAILY 05/11/20172017 Inactive nystatin 100,000 unit/mL oral suspension RxNorm: 688047 4 Milliliter(s) PO QID swish and swallow 05/10/2017 05/19/2017 Inactive and Monistat over the counter colestipol 1 gram tablet RxNorm: 2097942 TAKE ONE TABLET BY MOUTH TWICE DAILY 05/08/2017 No Stop Date Active Lantus 100 unit/mL subcutaneous solution RxNorm: 684045 30 units QAM and 50 units QHS Unit(s) SQ 04/28/2017 05/27/2017 Inactive Please provide 30 day supply Lantus Solostar 100 unit/mL (3 mL) subcutaneous insulin pen RxNorm: 154299 Unit( s) SQ BID 04/28/2017 06/13/2017 Inactive 30 units q am and 50units at night Lantus 100 unit/mL subcutaneous solution RxNorm: 618783 30 units QAM and 50 units QHS Unit(s) SQ 04/28/2017 04/27/2017 Inactive Please provide 30 day supply Levsin 0.125 mg tablet RxNorm: 7325417 1 Tablet(s) PO Q4 PRN 1-2 Tablet(s) PO Q4 PRN 04/25/2017 05/10/2017 Inactive promethazine 25 mg tablet RxNorm: 651142 1 Tablet(s) PO Q6 PRN 1 Tablet(s) PO Q6 PRN 04/25/2017 05/02/2017 Inactive Toprol XL 100 mg tablet,extended release RxNorm: 574767 TAKE ONE TABLET BY MOUTH TWICE DAILY 04/24/2017 11/14/2017 Inactive Flagyl 500 mg tablet RxNorm: 788993 1 Tablet(s) PO TID 201604/30/2017 Inactive Levaquin 500 mg tablet RxNorm: 667673 1 Tablet(s) PO daily 05/201604/27/2017 Inactive Voltaren 1 % topical gel RxNorm: 414308 4 Gram(s) TOP QID 04/1810/14/2017 Inactive mupirocin 2 % topical ointment RxNorm: 772389 1 Application TOP BID 04/18/2017 04/27/2017 Inactive apply to sore in belly button Lantus Solostar 100 unit/mL (3 mL) subcutaneous insulin pen RxNorm: 204627 Unit( s) SQ BID 04/18/2017 04/27/2017 Inactive 20 units q am and 50units at night levothyroxine 88 mcg tablet RxNorm: 756283 1 Tablet(s) PO daily TAKE ONE TABLET BY MOUTH ONCE DAILY 04/06/2017 04/17/2017 Inactive Xanax 0.5 mg tablet RxNorm: 672036 Tablet(s) TAKE ONE TABLET BY MOUTH THREE TIMES DAILY 04/04/2017 06/02/2017 Inactive Percocet 10 mg-325 mg tablet RxNorm: 1641562 1-2 Tablet(s) PO Q6 PRN 04/04/2017 04/18/2017 Inactive cyclobenzaprine 10 mg tablet RxNorm: 568042 TAKE ONE TABLET BY MOUTH EVERY 8 HOURS NEEDED 04/03/2017 06/01/2017 Inactive potassium chloride ER 20 mEq tablet,extended release RxNorm: 655938 1 Tablet(s) PO daily 03/28/2017 06/01/2017 Inactive nystatin 100,000 unit/gram topical cream RxNorm: 167807 1 Application TOP BID 03/27/2017 04/09/2017 Inactive Levsin 0.125 mg tablet RxNorm: 4235443 1 Tablet(s) PO Q4 PRN 1-2 Tablet(s) PO Q4 PRN 03/27/2017 04/24/2017 Inactive promethazine 25 mg tablet RxNorm: 252681 1 Tablet(s) PO Q6 PRN 03/23/2017 03/29/2017 Inactive nystatin 100,000 unit/gram topical powder RxNorm: 431118 APPLY POWDER TOPICALLY 4 TIMES DAILY 03/17/2017 05/10/2017 Inactive Percocet 10 mg-325 mg tablet RxNorm: 3134921 1-2 Tablet(s) PO Q6 PRN 03/09/2017 03/23/2017 Inactive Levsin 0.125 mg tablet RxNorm: 6439925 1-2 Tablet(s) PO Q4 PRN 03/06/2017 03/26/2017 Inactive promethazine 25 mg tablet RxNorm: 078358 1 Tablet(s) PO Q6 PRN 03/06/2017 03/13/2017 Inactive potassium chloride ER 20 mEq tablet,extended release RxNorm: 844870 1 Tablet(s) PO BID 02/23/2017 03/09/2017 Inactive Levsin/SL 0.125 mg sublingual tablet RxNorm: 1617404 1-2 Tablet(s) SL Q4 PRN 02/17/2017 03/26/2017 Inactive potassium chloride ER 20 mEq tablet,extended release RxNorm: 012127 1 Tablet(s) PO BID 02/17/2017 02/21/2017 Inactive magnesium oxide 400 mg tablet RxNorm: 405262 1 Tablet(s) PO daily 02/17/2017 02/21/2017 Inactive then twice weekly thereafter Levsin 0.125 mg tablet RxNorm: 8508427 1-2 Tablet(s) PO Q4 PRN 02/17/2017 02/16/2017 Inactive promethazine 25 mg tablet RxNorm: 572564 1 Tablet(s) PO Q6 PRN 02/10/2017 03/05/2017 Inactive Percocet 10 mg-325 mg tablet RxNorm: 1408574 1-2 Tablet(s) PO Q6 PRN 02/09/2017 02/23/2017 Inactive Cymbalta 60 mg capsule,delayed release RxNorm: 855473 1 Capsule(s) PO daily take with 30mg tablet 02/06/2017 05/06/2017 Inactive Cymbalta 30 mg capsule,delayed release RxNorm: 640209 1 Capsule(s) PO daily take with 60mg tablet 02/06/2017 02/19/2018 Inactive take with 60mg=90mg Vitamin D2 50,000 unit capsule RxNorm: 288349 1 Capsule(s) PO daily 01/17/2017 01/16/2017 Inactive daily x 6 mths Tresiba FlexTouch U-100 100 unit/mL (3 mL) subcutaneous insulin pen RxNorm: 9725843 40 Unit(s) SQ daily 01/17/20172016 Inactive Tresiba FlexTouch U-100 100 unit/mL (3 mL) subcutaneous insulin pen RxNorm: 9079832 40 Unit(s) SQ daily 01/17/20172016 Inactive Vitamin D2 50,000 unit capsule RxNorm: 218224 1 Capsule(s) PO daily 01/17/2017 10/26/2017 Inactive daily x 6 mths Cymbalta 30 mg capsule,delayed release RxNorm: 644267 1 Capsule(s) PO daily 01/16/2017 02/05/2017 Inactive take with 60mg=90mg Percocet 10 mg-325 mg tablet RxNorm: 5546965 1-2 Tablet(s) PO Q6 PRN 01/13/2017 01/27/2017 Inactive gabapentin 600 mg tablet RxNorm: 996323 TAKE ONE & ONE-HALF TABLETS BY MOUTH THREE TIMES DAILY 01/10/2017 05/09/2017 Inactive Percocet 10 mg-325 mg tablet RxNorm: 4805285 1-2 Tablet(s) PO Q6 PRN 12/21/2016 01/04/2017 Inactive Xanax 0.5 mg tablet RxNorm: 616822 Tablet(s) TAKE ONE TABLET BY MOUTH THREE TIMES DAILY 12/20/2016 02/15/2017 Inactive promethazine 25 mg tablet RxNorm: 155983 1 Tablet(s) PO Q6 PRN 12/16/2016 12/18/2016 Inactive prednisone 20 mg tablet RxNorm: 349403 2 Tablet(s) PO daily 12/14/2016 Inactive prednisone 20 mg tablet RxNorm: 068430 2 Tablet(s) PO daily 03/26/2017 Inactive Eliquis 5 mg tablet RxNorm: 3985618 1 Tablet(s) PO BID 201601/11/2017 Inactive doxycycline monohydrate 100 mg tablet RxNorm: 781263 1 Tablet(s) PO BID 12/13/2016 03/26/2017 Inactive give doxycyline hyclate cyclobenzaprine 10 mg tablet RxNorm: 962749 TAKE ONE TABLET BY MOUTH EVERY 8 HOURS NEEDED 12/09/2016 12/28/2016 Inactive Cymbalta 60 mg capsule,delayed release RxNorm: 264405 TAKE ONE CAPSULE BY MOUTH ONCE DAILY 11/30/2016 02/05/2017 Inactive promethazine 25 mg tablet RxNorm: 572770 2 Tablet(s) PO Q6 PRN 11/29/2016 12/16/2016 Inactive Percocet 10 mg-325 mg tablet RxNorm: 8116053 1-2 Tablet(s) PO Q6 PRN 11/24/2016 12/08/2016 Inactive mupirocin 2 % topical ointment RxNorm: 858617 1 Application TOP BID 11/11/2016 11/24/2016 Inactive Xanax 0.5 mg tablet RxNorm: 750335 Tablet(s) TAKE ONE TABLET BY MOUTH THREE TIMES DAILY 11/11/2016 12/19/2016 Inactive Belviq 10 mg tablet RxNorm: 9533567 1 Tablet(s) PO BID 201612/10/2016 Inactive Toprol XL 100 mg tablet,extended release RxNorm: 701999 TAKE ONE TABLET BY MOUTH TWICE DAILY 11/04/2016 04/02/2017 Inactive albuterol sulfate concentrate 2.5 mg/0.5 mL solution for nebulization RxNorm: 756643 USE ONE VIAL IN NEBULIZER EVERY 4 TO 6 HOURS NEEDED 11/03/2016 11/12/2016 Inactive Percocet 10 mg-325 mg tablet RxNorm: 7127453 1-2 Tablet(s) PO Q6 PRN 10/31/2016 11/23/2016 Inactive promethazine 25 mg tablet RxNorm: 386046 2 Tablet(s) PO Q6 PRN 10/28/2016 11/28/2016 Inactive nystatin 100,000 unit/mL oral suspension RxNorm: 674863 5 Milliliter(s) PO QID 10/28/2016 11/06/2016 Inactive Levemir FlexTouch 100 unit/mL (3 mL) subcutaneous insulin pen RxNorm: 515571 45 Unit(s) SQ BID 10/28/2016 01/16/2017 Inactive 45 q am and 40 q anita cyclobenzaprine 10 mg tablet RxNorm: 819680 TAKE ONE TABLET BY MOUTH EVERY 8 HOURS NEEDED 10/21/2016 11/09/2016 Inactive Lasix 40 mg tablet RxNorm: 170481 TAKE ONE TABLET BY MOUTH TWICE DAILY 10/18/2016 04/15/2017 Inactive Percocet 10 mg-325 mg tablet RxNorm: 7745795 1-2 Tablet(s) PO Q6 PRN 10/18/2016 10/30/2016 Inactive acyclovir 400 mg tablet RxNorm: 705890 2 Tablet(s) PO QID 10/1310/22/2016 Inactive Lasix 40 mg tablet RxNorm: TAKE ONE TABLET BY MOUTH TWICE DAILY 10/10/2016 10/17/2016 Inactive ropinirole 1 mg tablet RxNorm: 707055 TAKE ONE TABLET BY MOUTH AT BEDTIME 10/10/2016 04/07/2017 Inactive nystatin 100,000 unit/mL oral suspension RxNorm: 570694 5 Milliliter(s) PO QID x 10 days 09/30/2016 10/09/2016 Inactive nystatin 100,000 unit/mL oral suspension RxNorm: 809701 5 Milliliter(s) PO QID x 10 days 09/30/2016 10/09/2016 Inactive Swish et swallow Flonase Allergy Relief 50 mcg/actuation nasal spray, suspension RxNorm: 1315431 2 [place] NASAL daily 09/23/20162016 Inactive Percocet 10 mg-325 mg tablet RxNorm: 0748348 1-2 Tablet(s) PO Q6 PRN 09/23/2016 10/17/2016 Inactive doxycycline monohydrate 100 mg tablet RxNorm: 320712 1 Tablet(s) PO BID 09/23/2016 10/02/2016 Inactive give doxycyline hyclate Levemir FlexTouch 100 unit/mL (3 mL) subcutaneous insulin pen RxNorm: 679140 40 Unit(s) SQ BID 09/15/2016 10/27/2016 Inactive nystatin 100,000 unit/gram topical powder RxNorm: 848708 1 Application TOP QID 09/13/2016 09/22/2016 Inactive Voltaren 1 % topical gel RxNorm: 955909 4 Gram(s) TOP QID 09/1303/11/2017 Inactive Anusol-HC 25 mg rectal suppository RxNorm: 9259424 1 Suppository RTL HS 09/13/2016 09/26/2016 Inactive hydrocodone 10 mg-acetaminophen 325 mg tablet RxNorm: 768327 1-2 Tablet(s) PO Q6 as needed 09/13/2016 09/22/2016 Inactive Linzess 145 mcg capsule RxNorm: 3601891 1 Capsule(s) PO daily 09/01/2016 10/26/2017 Inactive Linzess 145 mcg capsule RxNorm: 5887974 1 Capsule(s) PO daily 09/01/2016 08/31/2016 Inactive Zofran 4 mg tablet RxNorm: 524286 TAKE ONE TABLET BY MOUTH EVERY 4 TO 6 HOURS NEEDED 08/29/2016 08/02/2017 Inactive Voltaren 1 % topical gel RxNorm: 893637 4 Gram(s) TOP QID 08/2309/12/2016 Inactive levothyroxine 88 mcg tablet RxNorm: 435818 TAKE ONE TABLET BY MOUTH ONCE DAILY 08/19/2016 12/16/2016 Inactive hydrocodone 10 mg-acetaminophen 325 mg tablet RxNorm: 405268 1 Tablet(s) PO Q6 as needed 08/17/2016 09/12/2016 Inactive nystatin 100,000 unit/gram topical powder RxNorm: 718885 1 Application TOP QID 08/16/2016 08/25/2016 Inactive Cymbalta 60 mg capsule,delayed release RxNorm: 867277 TAKE ONE CAPSULE BY MOUTH ONCE DAILY 08/10/2016 11/29/2016 Inactive Voltaren 1 % topical gel RxNorm: 315391 4 Gram(s) TOP QID 08/1008/22/2016 Inactive Voltaren 1 % topical gel RxNorm: 567051 4 Gram(s) TOP QID 08/1008/09/2016 Inactive promethazine 25 mg tablet RxNorm: 853853 TAKE ONE TABLET BY MOUTH EVERY 8 HOURS NEEDED FOR NAUSEA 07/29/20162017 Inactive nystatin 100,000 unit/gram topical powder RxNorm: 856793 1 Application TOP QID 07/26/2016 08/04/2016 Inactive Levemir FlexTouch 100 unit/mL (3 mL) subcutaneous insulin pen RxNorm: 792696 35 Unit(s) SQ BID 07/26/2016 08/24/2016 Inactive 35 q am and 30 q pm cyclobenzaprine 10 mg tablet RxNorm: 387437 TAKE ONE TABLET BY MOUTH EVERY 8 HOURS NEEDED 07/14/2016 08/22/2016 Inactive hydrocodone 10 mg-acetaminophen 325 mg tablet RxNorm: 838409 1 Tablet(s) PO Q6 as needed 07/11/2016 08/16/2016 Inactive nystatin 100,000 unit/mL oral suspension RxNorm: 113160 5 Milliliter(s) PO QID x 10 days 07/05/2016 07/04/2016 Inactive nystatin 100,000 unit/mL oral suspension RxNorm: 028424 5 Milliliter(s) PO QID x 10 days 07/05/2016 07/04/2016 Inactive nystatin 100,000 unit/mL oral suspension RxNorm: 235418 5 Milliliter(s) PO QID x 10 days 07/05/2016 07/14/2016 Inactive Swish et swallow doxycycline monohydrate 100 mg tablet RxNorm: 477508 1 Tablet(s) PO BID 06/24/2016 07/03/2016 Inactive give doxycyline hyclate promethazine 25 mg tablet RxNorm: 029599 TAKE ONE TABLET BY MOUTH EVERY 8 HOURS NEEDED FOR NAUSEA 06/01/20162016 Inactive pantoprazole 40 mg tablet,delayed release RxNorm: 839102 1 Tablet(s) PO BID 05/25/2016 08/02/2017 Inactive Zofran 4 mg tablet RxNorm: 902593 1 Tablet(s) PO Q12 PRN TAKE 1 TABLET BY MOUTH EVERY 4 TO 6 HOURS NEEDED 05/24/2016 Inactive hydrocodone 10 mg-acetaminophen 325 mg tablet RxNorm: 009062 1 Tablet(s) PO Q6 as needed 05/24/2016 07/10/2016 Inactive Levemir FlexTouch 100 unit/mL (3 mL) subcutaneous insulin pen RxNorm: 004001 25 Unit(s) SQ BID 05/24/2016 06/22/2016 Inactive Xanax 0.5 mg tablet RxNorm: 961650 Tablet(s) TAKE ONE TABLET BY MOUTH THREE TIMES DAILY 05/11/2016 07/09/2016 Inactive [place] Insulin Pen Needle UF Short 31 [place] x 5/16" [place] [facility] [place] 05/05/2016 Inactive BD Insulin Pen Needle UF Short 31 gauge x 5/16" [place] [facility] [place] [place] 06/04/2016 Inactive colestipol 1 gram tablet RxNorm: 6647241 Tablet(s) TAKE 1 TABLET BY MOUTH TWICE DAILY 04/22/2016 04/16/2017 Inactive Levemir FlexTouch 100 unit/mL (3 mL) subcutaneous insulin pen RxNorm: 190000 20 Unit(s) SQ BID 04/19/2016 05/18/2016 Inactive 25 UNITS Q AM AND 20 UNITS Q HS Cartia XT 180 mg capsule,extended release RxNorm: 523654 Capsule(s) BID 04/11/2016 04/05/2017 Inactive hydrocodone 10 mg-acetaminophen 325 mg tablet RxNorm: 245425 1 Tablet(s) PO Q6 as needed 04/11/2016 05/23/2016 Inactive Levemir FlexTouch 100 unit/mL (3 mL) subcutaneous insulin pen RxNorm: 007332 20 Unit(s) SQ BID 04/11/2016 04/18/2016 Inactive 20 UNITS Q AM AND 15 UNITS Q HS X 1 WEEK THEN 20 UNITS BID levothyroxine 88 mcg tablet RxNorm: 761243 1 Tablet(s) PO daily 03/21/2016 07/18/2016 Inactive Cymbalta 60 mg capsule,delayed release RxNorm: 540565 1 Capsule(s) PO daily 03/21/2016 07/18/2016 Inactive diltiazem ER (XR/XT) 240 mg capsule,extended release, controlled RxNorm: 504768 1 Capsule(s) PO BID 03/18/20162017 Inactive doxycycline hyclate 100 mg tablet RxNorm: 051367 1 Tablet(s) PO BID 03/11/2016 03/17/2016 Inactive Levemir FlexTouch 100 unit/mL (3 mL) subcutaneous insulin pen RxNorm: 084233 10 Unit(s) SQ BID 03/11/2016 04/09/2016 Inactive Lasix 40 mg tablet RxNorm: 206689 1 Tablet(s) PO BID 201509/06/2016 Inactive gabapentin 600 mg tablet RxNorm: 217195 Tablet(s) 1.5 TABLET(S) PO TID 03/04/2016 08/30/2016 Inactive Toujeo SoloStar 300 unit/mL (1.5 mL) subcutaneous insulin pen RxNorm: 6171090 10 Unit(s) SQ QHS 02/26/2016 03/26/2016 Inactive polymyxin B sulfate 10,000 unit-trimethoprim 1 mg/mL eye drops RxNorm: 510225 2 Drop(s) OPH TID 02/26/2016 03/03/2016 Inactive Lasix 20 mg tablet RxNorm: 060934 2 Tablet(s) PO BID TAKE 2 TABLETS BY MOUTH EVERY MORNING AND 2 TABLET BY MOUTH AT 3 PM 02/26/2016 03/10/2016 Inactive cyclobenzaprine 10 mg tablet RxNorm: 657171 Tablet(s) TABLET(S) TABLET(S) 1 TABLET (S) PO NEEDED TAKE 1 TABLET BY MOUTH EVERY 8 HOURS NEEDED 02/26/2016 07/13/2016 Inactive early fill- pt lost med Levemir FlexTouch 100 unit/mL (3 mL) subcutaneous insulin pen RxNorm: 180009 16 Unit(s) SQ QHS 02/18/2016 02/17/2016 Inactive Levemir FlexTouch 100 unit/mL (3 mL) subcutaneous insulin pen RxNorm: 627895 16 Unit(s) SQ QHS 02/18/2016 02/25/2016 Inactive Levemir 100 unit/mL subcutaneous solution RxNorm: 680447 16 Unit(s) SQ QHS 02/15/2016 02/17/2016 Inactive disp needles as well Effexor XR 37.5 mg capsule,extended release RxNorm: 712026 1 Capsule(s) QPM CAPSULE(S) PO TAKE 2 CAPSULES BY MOUTH EVERY MORNING AND 1 CAPSULE BY MOUTH EVERY NIGHT AT BEDTIME 02/15/20162015 Inactive clotrimazole 100 mg vaginal tablet RxNorm: 582209 1 Tablet(s) VAG QHS 02/05/2016 02/11/2016 Inactive clotrimazole 100 mg vaginal tablet RxNorm: 574933 1 Tablet(s) VAG QHS 02/05/2016 02/04/2016 Inactive hydrocodone 10 mg-acetaminophen 325 mg tablet RxNorm: 849244 1 Tablet(s) PO Q6 as needed 02/05/2016 04/10/2016 Inactive flecainide 100 mg tablet RxNorm: 629540 1 Tablet(s) PO BID No Stop Date Active potassium chloride ER 10 mEq tablet,extended release RxNorm: 960253 1 Tablet(s) PO daily 1 TABLET(S) PO QDAY PRN TAKE WITH LASIX 02/02/2016 01/26/2017 Inactive Brovana 15 mcg/2 mL solution for nebulization RxNorm: 235587 2 Milliliter(s) INH BID PRN 02/02/2016 03/20/2016 Inactive promethazine 25 mg tablet RxNorm: 256881 1 Tablet(s) PO Q8 as needed nausea 01/27/2016 03/20/2016 Inactive promethazine 25 mg tablet RxNorm: 702036 1 Tablet(s) PO Q6 PRN 01/27/2016 02/03/2016 Inactive nystatin 100,000 unit/mL oral suspension RxNorm: 334159 5 Unit(s) PO QID 01/12/2016 01/21/2016 Inactive promethazine 25 mg tablet RxNorm: 082192 1 Tablet(s) PO Q6 PRN 12/30/2015 01/06/2016 Inactive hydrocodone 7.5 mg-acetaminophen 325 mg tablet RxNorm: 358321 1 Tablet(s) PO q 6 hours prn for pain 12/10/2015 01/06/2016 Inactive Xanax 0.5 mg tablet RxNorm: 952206 TAKE ONE TABLET BY MOUTH THREE TIMES DAILY 12/02/2015 12/31/2015 Inactive Xanax 0.5 mg tablet RxNorm: 955853 Tablet(s) TAKE 1 TABLET BY MOUTH THREE TIMES DAILY 12/02/2015 11/30/2015 Inactive Anusol-HC 25 mg rectal suppository RxNorm: 9392647 1 Suppository RTL HS 11/27/2015 09/12/2016 Inactive ropinirole 1 mg tablet RxNorm: 097235 1 Tablet(s) PO QHS 201505/24/2016 Inactive nystatin 100,000 unit/mL oral suspension RxNorm: 297067 5 Unit(s) PO QID 11/20/2015 11/29/2015 Inactive albuterol sulfate concentrate 2.5 mg/0.5 mL solution for nebulization RxNorm: 956230 3 Milliliter(s) INH Q4-6H as needed 11/10/2015 11/02/2016 Inactive doxycycline monohydrate 100 mg tablet RxNorm: 120161 1 Tablet(s) PO BID 11/10/2015 11/19/2015 Inactive give doxycyline hyclate promethazine 25 mg tablet RxNorm: 845892 1 Tablet(s) PO Q6 PRN 11/05/2015 11/12/2015 Inactive Bactroban 2 % topical ointment RxNorm: 498492 1 APPLICATION TOP BID 10/27/2015 10/26/2017 Inactive Belviq 10 mg tablet RxNorm: 6418527 1 Tablet(s) PO BID 201511/25/2015 Inactive hydrocodone 7.5 mg-acetaminophen 325 mg tablet RxNorm: 390237 1 Tablet(s) PO q 6 hours prn for pain 10/20/2015 11/18/2015 Inactive Toprol XL 100 mg tablet,extended release RxNorm: 922118 Tablet(s) TAKE 1 TABLET BY MOUTH TWICE DAILY 10/16/20152016 Inactive Diflucan 150 mg tablet RxNorm: 772246 1 Tablet(s) PO every other day 10/14/2015 10/23/2015 Inactive Xanax 0.5 mg tablet RxNorm: 538998 Tablet(s) TAKE 1 TABLET BY MOUTH THREE TIMES DAILY 10/14/2015 05/10/2016 Inactive Toprol XL 100 mg tablet,extended release RxNorm: 342915 Tablet(s) TAKE 1 TABLET BY MOUTH TWICE DAILY 10/13/20152015 Inactive cyclobenzaprine 10 mg tablet RxNorm: 491768 Tablet(s) TABLET(S) TABLET(S) 1 TABLET (S) PO NEEDED TAKE 1 TABLET BY MOUTH EVERY 8 HOURS NEEDED 10/02/2015 10/14/2015 Inactive Zofran 4 mg tablet RxNorm: 279776 Tablet(s) 1 TABLET(S) PRN TAKE 1 TABLET BY MOUTH EVERY 4 TO 6 HOURS NEEDED 09/29/2015 12/27/2015 Inactive Synthroid 88 mcg tablet RxNorm: 156031 1 Tablet(s) PO daily 1 TABLET(S) PO DAILY 09/29/2015 10/28/2015 Inactive Patient requests 90 days supply promethazine 25 mg tablet RxNorm: 517245 1 Tablet(s) PO Q6 PRN 09/29/2015 11/04/2015 Inactive Lasix 20 mg tablet RxNorm: 258282 2 Tablet(s) PO BID 201501/18/2016 Inactive promethazine 25 mg tablet RxNorm: 043450 1 Tablet(s) PO Q6 PRN 09/22/2015 09/28/2015 Inactive hydrocodone 7.5 mg-acetaminophen 325 mg tablet RxNorm: 155551 1 Tablet(s) PO q 6 hours prn for pain 09/17/2015 10/16/2015 Inactive WelChol 625 mg tablet RxNorm: 165614 3 Tablet(s) PO BID 201503/26/2017 Inactive promethazine 25 mg tablet RxNorm: 143221 1 Tablet(s) PO Q8 as needed 09/07/2015 10/26/2017 Inactive Levemir 100 unit/mL subcutaneous solution RxNorm: 118636 16 Unit(s) SQ QHS 09/01/2015 02/14/2016 Inactive pantoprazole 40 mg tablet,delayed release RxNorm: 684360 1 Tablet(s) PO daily 09/01/2015 05/24/2016 Inactive Effexor XR 37.5 mg capsule,extended release RxNorm: 504085 Capsule(s) CAPSULE(S) PO TAKE 2 CAPSULES BY MOUTH EVERY MORNING AND 1 CAPSULE BY MOUTH EVERY NIGHT AT BEDTIME 08/27/2015 02/14/2016 Inactive promethazine 25 mg tablet RxNorm: 161209 1 Tablet(s) PO Q8 as needed 08/13/2015 09/06/2015 Inactive gabapentin 600 mg tablet RxNorm: 134736 Tablet(s) 1.5 TABLET(S) PO TID 08/13/2015 02/08/2016 Inactive hydrocodone 7.5 mg-acetaminophen 325 mg tablet RxNorm: 870687 1 Tablet(s) PO q 6 hours prn for pain 08/10/2015 09/08/2015 Inactive Zofran 4 mg tablet RxNorm: 235966 Tablet(s) 1 TABLET(S) PRN TAKE 1 TABLET BY MOUTH EVERY 4 TO 6 HOURS NEEDED 08/04/2015 08/03/2015 Inactive Zofran 4 mg tablet RxNorm: 424284 Tablet(s) 1 TABLET(S) PRN TAKE 1 TABLET BY MOUTH EVERY 4 TO 6 HOURS NEEDED 08/04/2015 09/28/2015 Inactive doxycycline monohydrate 100 mg tablet RxNorm: 000731 1 Tablet(s) PO BID 08/04/2015 08/10/2015 Inactive give doxycyline hyclate Diflucan 150 mg tablet RxNorm: 004698 1 Tablet(s) PO every other day 07/31/2015 08/09/2015 Inactive nystatin 100,000 unit/mL oral suspension RxNorm: 292132 5 Milliliter(s) PO QID 07/31/2015 07/30/2015 Inactive Diflucan 150 mg tablet RxNorm: 019051 1 Tablet(s) PO every other day 07/31/2015 07/30/2015 Inactive nystatin 100,000 unit/mL oral suspension RxNorm: 831887 5 Milliliter(s) PO QID 07/31/2015 08/09/2015 Inactive Ceftin 500 mg tablet RxNorm: 291584 1 Tablet(s) PO BID 201507/23/2015 Inactive Ceftin 500 mg tablet RxNorm: 682174 1 Tablet(s) PO BID Pre-medicate with benadryl 50 mg, pepcid 20 mg, and nathanael before each dose 07/24/2015 07/30/2015 Inactive cyclobenzaprine 10 mg tablet RxNorm: 967253 TABLET(S) TABLET(S) 1 TABLET(S) PO NEEDED TAKE 1 TABLET BY MOUTH EVERY 8 HOURS NEEDED 201502/25/2016 Inactive early fill- pt lost med Synthroid 88 mcg tablet RxNorm: 739865 1 TABLET(S) PO DAILY 07/201509/28/2015 Inactive Patient requests 90 days supply cyclobenzaprine 10 mg tablet RxNorm: 764065 Tablet(s) TABLET(S) TABLET(S) 1 TABLET (S) PO NEEDED TAKE 1 TABLET BY MOUTH EVERY 8 HOURS NEEDED 07/23/2015 10/01/2015 Inactive early fill- pt lost med Promethazine VC 6.25 mg-5 mg/5 mL syrup RxNorm: 5297353 1-2 Teaspoon(s) PO Q6 PRN as needed 07/22/2015 03/20/2016 Inactive Diflucan 150 mg tablet RxNorm: 888592 1 Tablet(s) PO daily 06/201507/22/2015 Inactive Lasix 20 mg tablet RxNorm: 830364 Tablet(s) TAKE 2 TABLETS BY MOUTH EVERY MORNING AND 2 TABLET BY MOUTH AT 3PM 07/16/2015 09/21/2015 Inactive Toprol XL 100 mg tablet,extended release RxNorm: 140435 Tablet(s) TAKE 1 TABLET BY MOUTH TWICE DAILY 07/16/20152015 Inactive Cartia XT 180 mg capsule,extended release RxNorm: 572231 Capsule(s) 1 CAPSULE(S) PO DAILY TAKE 1 CAPSULE BY MOUTH AT BEDTIME ..TAKE THIS IN ADDITION TO 240 MG IN THE MORNING 07/14/2015 04/10/2016 Inactive diltiazem ER (XR/XT) 240 mg capsule,extended release, controlled RxNorm: 906080 Capsule(s) TAKE 1 CAPSULE BY MOUTH DAILY 07/14/2015 03/17/2016 Inactive gabapentin 600 mg tablet RxNorm: 422607 Tablet(s) 1.5 TABLET(S) PO TID 07/06/2015 08/12/2015 Inactive Phenergan 25 mg tablet RxNorm: 475757 1 Tablet(s) PO Q8 as needed nausea 06/29/2015 01/25/2016 Inactive doxycycline monohydrate 100 mg tablet RxNorm: 272473 1 Tablet(s) PO BID 06/29/2015 06/28/2015 Inactive doxycycline monohydrate 100 mg tablet RxNorm: 158653 1 Tablet(s) PO BID 06/29/2015 07/08/2015 Inactive give doxycyline hyclate doxycycline monohydrate 100 mg tablet RxNorm: 637821 1 Tablet(s) PO BID 06/29/2015 06/28/2015 Inactive Lasix 20 mg tablet RxNorm: 041070 Tablet(s) TAKE 2 TABLETS BY MOUTH EVERY MORNING AND 2 TABLET BY MOUTH AT 3PM 06/29/2015 07/15/2015 Inactive Lasix 20 mg tablet RxNorm: 963782 Tablet(s) TAKE 2 TABLETS BY MOUTH EVERY MORNING AND 1 TABLET BY MOUTH AT 3PM 06/26/2015 06/28/2015 Inactive Xanax 0.5 mg tablet RxNorm: 948547 Tablet(s) TAKE 1 TABLET BY MOUTH THREE TIMES DAILY 06/26/2015 07/25/2015 Inactive Kenalog 40 mg/mL suspension for injection RxNorm: 3737831 Milliliter(s) Inj 06/26/2015 06/26/2015 Inactive hydrocodone 7.5 mg-acetaminophen 325 mg tablet RxNorm: 022882 1 Tablet(s) PO q 6 hours prn for pain 06/26/2015 07/25/2015 Inactive Dexilant 60 mg capsule, delayed release RxNorm: 892611 1 Capsule(s) PO daily 06/26/2015 08/24/2015 Inactive colestipol 1 gram tablet RxNorm: 6338410 1 TABLET(S) PO BID TAKE 1 TABLET BY MOUTH TWICE DAILY 06/16/2015 03/11/2016 Inactive hydrocodone 7.5 mg-acetaminophen 325 mg tablet RxNorm: 690148 1 Tablet(s) PO q 6 hours prn for pain 06/11/2015 06/25/2015 Inactive cyclobenzaprine 10 mg tablet RxNorm: 450022 TABLET(S) TABLET(S) 1 TABLET(S) PO NEEDED TAKE 1 TABLET BY MOUTH EVERY 8 HOURS NEEDED 201507/22/2015 Inactive early fill- pt lost med Zofran 4 mg tablet RxNorm: 982362 1 TABLET(S) PRN TAKE 1 TABLET BY MOUTH EVERY 4 TO 6 HOURS NEEDED 05/25/20152015 Inactive Zofran 4 mg tablet RxNorm: 873270 1 Tablet(s) PRN TAKE 1 TABLET BY MOUTH EVERY 4 TO 6 HOURS NEEDED 05/19/20152015 Inactive gabapentin 600 mg tablet RxNorm: 208884 1.5 TABLET(S) PO TID 07/05/2015 Inactive Lasix 20 mg tablet RxNorm: 915464 TAKE 2 TABLETS BY MOUTH EVERY MORNING AND 1 TABLET BY MOUTH AT 3PM 05/07/20152015 Inactive Effexor XR 37.5 mg capsule,extended release RxNorm: 074055 Capsule(s) CAPSULE(S) PO TAKE 2 CAPSULES BY MOUTH EVERY MORNING AND 1 CAPSULE BY MOUTH EVERY NIGHT AT BEDTIME 04/15/2015 08/26/2015 Inactive Diflucan 150 mg tablet RxNorm: 188085 1 Tablet(s) PO daily 04/18/2015 Inactive Victoza 3-Babak 0.6 mg/0.1 mL (18 mg/3 mL) subcutaneous pen injector RxNorm: 651449 1.8 Milligram(s) SQ daily 04/14/201508/10 Inactive Levaquin 500 mg tablet RxNorm: 910710 1 Tablet(s) PO daily 04/20/2015 Inactive potassium chloride ER 10 mEq tablet,extended release RxNorm: 818280 1 TABLET(S) PO QDAY PRN TAKE WITH LASIX 04/13/201504/2016 Inactive Effexor XR 37.5 mg capsule,extended release RxNorm: 548822 CAPSULE(S) PO TAKE 2 CAPSULES BY MOUTH EVERY MORNING AND 1 CAPSULE BY MOUTH EVERY NIGHT AT BEDTIME 04/10/2015 04/14/2015 Inactive pantoprazole 40 mg tablet,delayed release RxNorm: 294785 1 Tablet(s) PO daily 03/31/2015 08/31/2015 Inactive Dexilant 60 mg capsule, delayed release RxNorm: 322202 1 Capsule(s) PO daily 03/31/2015 03/31/2015 Inactive pantoprazole 40 mg tablet,delayed release RxNorm: 119726 1 Tablet(s) PO daily 03/31/2015 03/30/2015 Inactive Dexilant 60 mg capsule, delayed release RxNorm: 559903 1 Capsule(s) PO daily 03/31/2015 05/29/2015 Inactive Dexilant 60 mg capsule, delayed release RxNorm: 301017 1 Capsule(s) PO daily 03/30/2015 03/30/2015 Inactive hydrocodone 7.5 mg-acetaminophen 325 mg tablet RxNorm: 931281 1 Tablet(s) PO q 6 hours prn for pain 03/30/2015 04/28/2015 Inactive cyclobenzaprine 10 mg tablet RxNorm: 310351 TABLET(S) TABLET(S) 1 TABLET(S) PO NEEDED TAKE 1 TABLET BY MOUTH EVERY 8 HOURS NEEDED 201405/31/2015 Inactive early fill- pt lost med Xanax 0.5 mg tablet RxNorm: 354642 Tablet(s) TAKE 1 TABLET BY MOUTH THREE TIMES DAILY 03/25/2015 04/23/2015 Inactive Lasix 20 mg tablet RxNorm: 632476 TAKE 2 TABLETS BY MOUTH EVERY MORNING AND 1 TABLET BY MOUTH AT 3PM 03/23/20152014 Inactive Levemir Flexpen 100 unit/mL (3 mL) solution subcutaneous insulin pen RxNorm: 349359 15 Unit(s) SQ BID 03/20/20152015 Inactive give quanity sufficient for 1 month- Dexilant 60 mg capsule, delayed release RxNorm: 037020 1 Capsule(s) PO daily 03/19/2015 03/29/2015 Inactive Dexilant 60 mg capsule, delayed release RxNorm: 639215 1 Capsule(s) PO daily 03/19/2015 03/18/2015 Inactive Diflucan 150 mg tablet RxNorm: 930929 1 Tablet(s) PO every other day x7 doses 03/19/2015 03/21/2015 Inactive hydrocodone 7.5 mg-acetaminophen 325 mg tablet RxNorm: 049971 1 Tablet(s) PO q 6 hours prn for pain 02/27/2015 03/28/2015 Inactive Lasix 20 mg tablet RxNorm: 524184 TAKE 2 TABLETS BY MOUTH EVERY MORNING AND 1 TABLET BY MOUTH AT 3PM 02/27/20152014 Inactive omeprazole 20 mg capsule,delayed release RxNorm: 705061 1 CAPSULE(S) PO DAILY TAKE 1 CAPSULE BY MOUTH TWICE DAILY 02/26/2015 10/26/2017 Inactive Zofran 4 mg tablet RxNorm: 339113 1 Tablet(s) PRN TAKE 1 TABLET BY MOUTH EVERY 4 TO 6 HOURS NEEDED 02/24/20152014 Inactive fluconazole 150 mg tablet RxNorm: 683383 1 Tablet(s) PO every other day x 5 doses 02/19/2015 02/28/2015 Inactive cyclobenzaprine 10 mg tablet RxNorm: 984737 TABLET(S) TABLET(S) 1 TABLET(S) PO NEEDED TAKE 1 TABLET BY MOUTH EVERY 8 HOURS NEEDED 201403/29/2015 Inactive early fill- pt lost med hydrocodone 7.5 mg-acetaminophen 325 mg tablet RxNorm: 831747 1 Tablet(s) PO q 6 hours prn for pain 01/29/2015 02/26/2015 Inactive Xanax 0.5 mg tablet RxNorm: 834245 Tablet(s) TAKE 1 TABLET BY MOUTH THREE TIMES DAILY 01/29/2015 02/27/2015 Inactive Bactroban 2 % topical ointment RxNorm: 498632 1 APPLICATION TOP BID 01/26/2015 10/26/2015 Inactive Bactroban 2 % topical ointment RxNorm: 469299 1 Application TOP BID 01/15/2015 01/25/2015 Inactive doxycycline hyclate 100 mg tablet RxNorm: 317020 1 Tablet(s) PO BID 01/15/2015 01/21/2015 Inactive nystatin 100,000 unit/mL oral suspension RxNorm: 338500 5 Milliliter(s) PO QID 01/15/2015 01/24/2015 Inactive Cartia XT 180 mg capsule,extended release RxNorm: 387831 1 CAPSULE(S) PO DAILY TAKE 1 CAPSULE BY MOUTH AT BEDTIME ..TAKE THIS IN ADDITION TO 240 MG IN THE MORNING 01/13/2015 07/13/2015 Inactive Lasix 20 mg tablet RxNorm: 135427 TAKE 2 TABLETS BY MOUTH EVERY MORNING AND 1 TABLET BY MOUTH AT 3PM 01/08/20152014 Inactive fluconazole 150 mg tablet RxNorm: 288137 1 Tablet(s) PO daily 01/01/2015 01/05/2015 Inactive hydrocodone 7.5 mg-acetaminophen 325 mg tablet RxNorm: 670823 1 Tablet(s) PO q 6 hours prn for pain 01/01/2015 01/28/2015 Inactive colestipol 1 gram tablet RxNorm: 1285022 1 TABLET(S) PO BID TAKE 1 TABLET BY MOUTH TWICE DAILY 12/18/2014 06/15/2015 Inactive colestipol 1 gram tablet RxNorm: 8567962 1 TABLET(S) PO BID TAKE 1 TABLET BY MOUTH TWICE DAILY 12/18/2014 09/13/2015 Inactive Lasix 20 mg tablet RxNorm: 996244 TAKE 2 TABLETS BY MOUTH EVERY MORNING AND 2 TABLETS AND AT 3PM 12/11/2014 12/25/2014 Inactive cyclobenzaprine 10 mg tablet RxNorm: 336020 TABLET(S) 1 TABLET(S) PO NEEDED TAKE 1 TABLET BY MOUTH EVERY 8 HOURS NEEDED 12/11/2014 05/31/2017 Inactive Lasix 20 mg tablet RxNorm: 745235 Tablet(s) TABLET(S) PO TAKE 2 TABLETS BY MOUTH EVERY MORNING AND 1 TABLET BY MOUTH AT 3 PM 12/10/2014 12/10/2014 Inactive fill early- pt lost them cyclobenzaprine 10 mg tablet RxNorm: 718648 Tablet(s) TABLET(S) 1 TABLET(S) PO NEEDED TAKE 1 TABLET BY MOUTH EVERY 8 HOURS NEEDED 201402/15/2015 Inactive early fill- pt lost med cyclobenzaprine 10 mg tablet RxNorm: 267711 TABLET(S) 1 TABLET(S) PO NEEDED TAKE 1 TABLET BY MOUTH EVERY 8 HOURS NEEDED 12/02/2014 12/09/2014 Inactive hydrocodone 7.5 mg-acetaminophen 325 mg tablet RxNorm: 785063 1 Tablet(s) PO q 6 hours prn for pain 12/01/2014 12/30/2014 Inactive diltiazem ER (XR/XT) 240 mg capsule,extended release, controlled RxNorm: 390885 TAKE 1 CAPSULE BY MOUTH DAILY 11/30/2014 07/13/2015 Inactive Xanax 0.5 mg tablet RxNorm: 632169 1 Tablet(s) PO TID PRN as needed 11/19/2014 11/19/2014 Inactive (Appended: Controlled substance eRx refill - RxReferenceNumber: [id number]|1|0|1) Xanax 0.5 mg tablet RxNorm: 122898 TAKE 1 TABLET BY MOUTH THREE TIMES DAILY 11/19/2014 12/18/2014 Inactive Toprol XL 100 mg tablet,extended release RxNorm: 155939 TAKE 1 TABLET BY MOUTH TWICE DAILY 11/06/2014 07/15/2015 Inactive Diflucan 150 mg tablet RxNorm: 951263 1 Tablet(s) PO every other day x7 doses 11/05/2014 11/07/2014 Inactive omeprazole 20 mg capsule,delayed release RxNorm: 152334 1 Capsule(s) PO daily TAKE 1 CAPSULE BY MOUTH TWICE DAILY 11/04/2014 02/01/2015 Inactive cyclobenzaprine 10 mg tablet RxNorm: 938741 TABLET(S) 1 TABLET(S) PO NEEDED TAKE 1 TABLET BY MOUTH EVERY 8 HOURS NEEDED 10/28/2014 12/01/2014 Inactive hydrocodone 7.5 mg-acetaminophen 325 mg tablet RxNorm: 871358 1 Tablet(s) PO q 6 hours prn for pain 10/21/2014 11/19/2014 Inactive gabapentin 600 mg tablet RxNorm: 922241 1.5 Tablet(s) PO TID 04/30/2015 Inactive Xanax 0.5 mg tablet RxNorm: 270872 Tablet(s) TAKE 1 TABLET BY MOUTH THREE TIMES DAILY 10/01/2014 10/30/2014 Inactive (Response to an electronic controlled substance refill request - RxReferenceNumber: [id number]|1|0|1) Xanax 0.25 mg tablet RxNorm: 870070 1 Tablet(s) PO Q8 PRN as needed 09/30/2014 09/30/2014 Inactive Lasix 20 mg tablet RxNorm: 629720 Tablet(s) TAKE 2 TABLETS BY MOUTH EVERY MORNING AND 2 TABLETS BY MOUTH AT 3 PM 09/30/2014 11/12/2014 Inactive Victoza 3-Babak 0.6 mg/0.1 mL (18 mg/3 mL) subcutaneous pen injector RxNorm: 529384 1.2 MILLIGRAM(S) SQ DAILY 0.6 X 2 WEEKS THEN INCREASE TO 1.2MG DAILY 09/26/2014 04/13/2015 Inactive Xanax 0.5 mg tablet RxNorm: 650805 TAKE 1 TABLET BY MOUTH THREE TIMES DAILY 09/25/2014 09/30/2014 Inactive (Response to an electronic controlled substance refill request [id number]|1|0|1) Zofran 4 mg tablet RxNorm: 046035 TAKE 1 TABLET BY MOUTH EVERY 4 TO 6 HOURS NEEDED 09/25/2014 09/27/2014 Inactive hydrocodone 7.5 mg-acetaminophen 325 mg tablet RxNorm: 403480 1 Tablet(s) PO q 6 hours prn for pain 09/19/2014 10/18/2014 Inactive cyclobenzaprine 10 mg tablet RxNorm: 160031 TABLET(S) 1 TABLET(S) PO NEEDED TAKE 1 TABLET BY MOUTH EVERY 8 HOURS NEEDED 09/15/2014 10/27/2014 Inactive Lasix 20 mg tablet RxNorm: 377282 Tablet(s) TAKE 2 TABLETS BY MOUTH EVERY MORNING AND 2 TABLETS BY MOUTH AT 3 PM 09/08/2014 09/29/2014 Inactive Lasix 20 mg tablet RxNorm: 022127 TAKE 2 TABLETS BY MOUTH EVERY MORNING AND 2 TABLETS BY MOUTH AT 3 PM 08/21/20142014 Inactive hydrocodone 7.5 mg-acetaminophen 325 mg tablet RxNorm: 620759 1 Tablet(s) PO q 6 hours prn for pain 08/21/2014 09/18/2014 Inactive Diflucan 150 mg tablet RxNorm: 581346 1 Tablet(s) PO every other day 08/15/2014 08/17/2014 Inactive cyclobenzaprine 10 mg tablet RxNorm: 004986 Tablet(s) 1 TABLET(S) PO NEEDED TAKE 1 TABLET BY MOUTH EVERY 8 HOURS NEEDED 08/12/2014 09/14/2014 Inactive Zofran 4 mg tablet RxNorm: 509791 TAKE 1 TABLET BY MOUTH EVERY 4 TO 6 HOURS NEEDED 07/31/2014 08/02/2014 Inactive Effexor XR 37.5 mg capsule,extended release RxNorm: 493997 CAPSULE(S) PO TAKE 2 CAPSULES BY MOUTH EVERY MORNING AND 1 CAPSULE BY MOUTH EVERY NIGHT AT BEDTIME 07/28/2014 02/15/2016 Inactive Lasix 20 mg tablet RxNorm: 384114 TAKE 2 TABLETS BY MOUTH EVERY MORNING AND 2 TABLETS BY MOUTH AT 3 PM 07/22/20142014 Inactive Diflucan 150 mg tablet RxNorm: 792106 1 Tablet(s) PO daily 06/201407/23/2014 Inactive hydrocodone 7.5 mg-acetaminophen 325 mg tablet RxNorm: 616207 1 Tablet(s) PO q 6 hours prn for pain 07/14/2014 08/12/2014 Inactive Synthroid 88 mcg tablet RxNorm: 832643 1 TABLET(S) PO DAILY 10/11/2014 Inactive Effexor XR 37.5 mg capsule,extended release RxNorm: 368180 Capsule(s) PO TAKE 2 CAPSULES BY MOUTH EVERY MORNING AND 1 CAPSULE BY MOUTH EVERY NIGHT AT BEDTIME 07/07/2014 04/09/2015 Inactive Effexor XR 37.5 mg capsule,extended release RxNorm: 912426 TAKE 2 CAPSULES BY MOUTH EVERY MORNING AND 1 CAPSULE BY MOUTH EVERY NIGHT AT BEDTIME 07/07/2014 01/02/2015 Inactive WelChol 625 mg tablet RxNorm: 673339 3 TABLET(S) PO BID 201410/04/2014 Inactive WelChol 625 mg tablet RxNorm: 375493 3 Tablet(s) PO BID 201402/01/2015 Inactive Zofran 4 mg tablet RxNorm: 894562 TAKE 1 TABLET BY MOUTH EVERY 4 TO 6 HOURS NEEDED 07/03/2014 07/05/2014 Inactive Lasix 20 mg tablet RxNorm: 617495 TAKE 2 TABLETS BY MOUTH EVERY MORNING AND 2 TABLETS BY MOUTH AT 3 PM 06/26/20142014 Inactive Diflucan 150 mg tablet RxNorm: 781335 1 Tablet(s) PO daily 06/19/2014 Inactive Promethazine VC 6.25 mg-5 mg/5 mL syrup RxNorm: 8505770 1-2 Teaspoon(s) PO Q6 PRN as needed 06/12/2014 07/21/2015 Inactive hydrocodone 7.5 mg-acetaminophen 325 mg tablet RxNorm: 899770 1 Tablet(s) PO q 6 hours prn for pain 06/03/2014 07/02/2014 Inactive Levaquin 500 mg tablet RxNorm: 556312 1 Tablet(s) PO daily 01/201506/05/2014 Inactive cyclobenzaprine 10 mg tablet RxNorm: 273691 Tablet(s) 1 TABLET(S) PO NEEDED TAKE 1 TABLET BY MOUTH EVERY 8 HOURS NEEDED 05/26/2014 No Stop Date Active cyclobenzaprine 10 mg tablet RxNorm: 670238 1 TABLET(S) PO NEEDED TAKE 1 TABLET BY MOUTH EVERY 8 HOURS NEEDED 05/26/2014 08/11/2014 Inactive Lasix 20 mg tablet RxNorm: 644696 Tablet(s) TABLET(S) PO TAKE 2 TABLETS BY MOUTH EVERY MORNING AND 2 TABLET BY MOUTH AT 3 PM 05/12/2014 06/25/2014 Inactive Combivent Respimat 20 mcg-100 mcg/actuation solution for inhalation RxNorm: 4161628 INHALE 1 PUFF BY MOUTH FOUR TIMES DAILY 05/12/2014 11/07/2014 Inactive fluconazole 150 mg tablet RxNorm: 786128 1 Tablet(s) PO UD 05/12/2014 Inactive 1 tab every other day x 5 doses Activella 0.5 mg-0.1 mg tablet RxNorm: 9221469 1 TABLET(S) PO DAILY TAKE 1 TABLET BY MOUTH DAILY FOR MENOPAUSAL SYMPTOM 05/02/2014 09/21/2015 Inactive hydrocodone 7.5 mg-acetaminophen 300 mg tablet RxNorm: 838503 Tablet(s) PO TAKE 1 TABLET BY MOUTH EVERY 6 HOURS NEEDED FOR PAIN 04/21/2014 06/03/2014 Inactive ( Appended: Controlled substance eRx refill - RxReferenceNumber: [id number]|1|0|1 ) Levaquin 500 mg tablet RxNorm: 172463 1 Tablet(s) PO daily 04/21/2014 Inactive Diflucan 150 mg tablet RxNorm: 421791 1 Tablet(s) PO every other day x 4 doses 04/10/2014 06/16/2014 Inactive Lasix 20 mg tablet RxNorm: TAKE 2 TABLETS BY MOUTH EVERY MORNING AND 1 TABLET BY MOUTH AT 3 PM 04/10/20142013 Inactive potassium chloride ER 10 mEq tablet,extended release RxNorm: 075946 1 TABLET(S) PO QDAY PRN TAKE WITH LASIX 04/09/2014 Inactive Levaquin 250 mg tablet RxNorm: 228672 1 Tablet(s) PO daily 08/201304/07/2014 Inactive 2 tabs today then 1 tab daily until gone atorvastatin 40 mg tablet RxNorm: 878264 1 Tablet(s) daily 1 TABLET(S) PO DAILY 03/25/2014 04/10/2016 Inactive TAKE 1 TABLET BY MOUTH DAILY (THIS IS AN INCREASE IN DOSAGE) Zofran 4 mg tablet RxNorm: 022117 1 Tablet(s) PO Q4-6H 201307/02/2014 Inactive Xanax 0.5 mg tablet RxNorm: 712014 TAKE 1 TABLET BY MOUTH THREE TIMES DAILY NEEDED 03/19/2014 04/17/2014 Inactive (Response to an electronic controlled substance refill request - RxReferenceNumber: [id number]|1|0|1) hydrocodone 7.5 mg-acetaminophen 300 mg tablet RxNorm: 835500 Tablet(s) PO TAKE 1 TABLET BY MOUTH EVERY 6 HOURS NEEDED FOR PAIN 03/19/2014 04/20/2014 Inactive ( Appended: Controlled substance eRx refill - RxReferenceNumber: [id number]|1|0|1 ) atorvastatin 40 mg tablet RxNorm: 634857 1 TABLET(S) PO DAILY 03/10/2014 03/24/2014 Inactive TAKE 1 TABLET BY MOUTH DAILY (THIS IS AN INCREASE IN DOSAGE) WelChol 625 mg tablet RxNorm: 814220 3 Tablet(s) PO BID 201303/06/2014 Inactive WelChol 625 mg tablet RxNorm: 170999 3 Tablet(s) PO BID 201307/04/2014 Inactive Lasix 20 mg tablet RxNorm: 057673 Tablet(s) TABLET(S) PO TAKE 2 TABLETS BY MOUTH EVERY MORNING AND 2 TABLET BY MOUTH AT 3 PM 03/03/2014 05/11/2014 Inactive Lasix 20 mg tablet RxNorm: TABLET(S) PO TAKE 2 TABLETS BY MOUTH EVERY MORNING AND 1 TABLET BY MOUTH AT 3 PM 02/20/2014 03/02/2014 Inactive gabapentin 600 mg tablet RxNorm: 294876 1.5 Tablet(s) PO TID 09/16/2014 Inactive Synthroid 88 mcg tablet RxNorm: 440676 1 TABLET(S) PO DAILY 05/18/2014 Inactive cyclobenzaprine 10 mg tablet RxNorm: 429494 1 TABLET(S) PO NEEDED TAKE 1 TABLET BY MOUTH EVERY 8 HOURS NEEDED 02/18/2014 05/25/2014 Inactive doxycycline hyclate 100 mg tablet RxNorm: 348462 1 Tablet(s) PO BID 02/13/2014 02/22/2014 Inactive Bactroban 2 % topical ointment RxNorm: 932200 1 Application TOP BID 02/13/2014 03/12/2014 Inactive Victoza 3-Babak 0.6 mg/0.1 mL (18 mg/3 mL) subcutaneous pen injector RxNorm: 228814 1.2 MILLIGRAM(S) SQ DAILY 0.6 X 2 WEEKS THEN INCREASE TO 1.2MG DAILY 02/10/2014 05/10/2014 Inactive albuterol sulfate 1.25 mg/3 mL solution for nebulization RxNorm: 692551 3 MILLILITER(S) INH TID 02/07/20142014 Inactive 1 box Victoza 3-Babak 0.6 mg/0.1 mL (18 mg/3 mL) subcutaneous pen injector RxNorm: 593984 1.8 Milligram(s) SQ daily 0.6 x 2 weeks then increase to 1.2mg daily 01/27/2014 05/26/2014 Inactive Levemir Flexpen 100 unit/mL (3 mL) solution subcutaneous insulin pen RxNorm: 989851 5units sq at hs, increase by 3 Unit(s) SQ at hs every 3days, goal FSBS 170 or less, do not increase above 20units, call doctor with report 01/27/2014 05/26/2014 Inactive hydrocodone 7.5 mg-acetaminophen 300 mg tablet RxNorm: 291410 Tablet(s) PO TAKE 1 TABLET BY MOUTH EVERY 6 HOURS NEEDED FOR PAIN 01/24/2014 03/18/2014 Inactive ( Appended: Controlled substance eRx refill - RxReferenceNumber: [id number]|1|0|1 ) Xanax 0.5 mg tablet RxNorm: 441167 1 Tablet(s) PO TID PRN as needed 01/24/2014 09/21/2014 Inactive (Appended: Controlled substance eRx refill - RxReferenceNumber: [id number]|1|0|1) Xanax 0.5 mg tablet RxNorm: 699162 TAKE 1 TABLET BY MOUTH THREE TIMES DAILY NEEDED 01/23/2014 02/21/2014 Inactive (Response to an electronic controlled substance refill request - RxReferenceNumber: [id number]|1|0|1) hydrocodone 5 mg-acetaminophen 325 mg tablet RxNorm: 416622 TAKE 1 TABLET BY MOUTH EVERY 6 HOURS NEEDED FOR PAIN 01/21/2014 02/19/2014 Inactive (Response to an electronic controlled substance refill request - RxReferenceNumber: [id number]| [id number]|1|0|1) Lasix 20 mg tablet RxNorm: 787309 TAKE 2 TABLETS BY MOUTH EVERY MORNING AND 1 TABLET BY MOUTH AT 3 PM 01/17/20142013 Inactive cyclobenzaprine 10 mg tablet RxNorm: 725999 1 Tablet(s) PO as needed TAKE 1 TABLET BY MOUTH EVERY 8 HOURS NEEDED 01/13/2014 02/17/2014 Inactive Anusol-HC 25 mg suppository RxNorm: 7923851 1 SUPPOSITORY RTL PRN ONE PER RECTUM NEEDED, UP TO TWICE DAILY FOR HEMORRHOID, NO MORE THAN 7 DAYS IN A ROW 01/10/2014 02/06/2014 Inactive Activella 0.5 mg-0.1 mg tablet RxNorm: 2464475 1 Tablet(s) PO daily TAKE 1 TABLET BY MOUTH DAILY FOR MENOPAUSAL SYMPTOM 01/08/2014 05/01/2014 Inactive gabapentin 600 mg tablet RxNorm: 966771 1.5 Tablet(s) PO TID 02/18/2014 Inactive gabapentin 600 mg tablet RxNorm: 671213 1.5 Tablet(s) PO TID 01/01/2014 Inactive hydrocodone 7.5 mg-acetaminophen 300 mg tablet RxNorm: 219230 Tablet(s) PO TAKE 1 TABLET BY MOUTH EVERY 6 HOURS NEEDED FOR PAIN 12/12/2013 01/23/2014 Inactive ( Appended: Controlled substance eRx refill - RxReferenceNumber: [id number]|1|0|1 ) Levaquin 250 mg tablet RxNorm: 465947 1 Tablet(s) PO daily 12/18/2013 Inactive 2 tabs today then 1 tab daily until gone Diflucan 150 mg tablet RxNorm: 337301 1 Tablet(s) PO daily 12/16/2013 Inactive do not stat until levaquin is completed Cartia XT 180 mg capsule,extended release RxNorm: 112654 1 CAPSULE(S) PO DAILY TAKE 1 CAPSULE BY MOUTH AT BEDTIME ..TAKE THIS IN ADDITION TO 240 MG IN THE MORNING 12/12/2013 12/06/2014 Inactive diltiazem ER (XR/XT) 240 mg capsule,extended release, controlled RxNorm: 190843 1 Capsule(s) PO daily TAKE 1 CAPSULE BY MOUTH EVERY DAY 11/28/2014 Inactive Effexor XR 37.5 mg capsule,extended release RxNorm: 109012 Capsule(s) PO TAKE 2 CAPSULES BY MOUTH EVERY MORNING AND 1 CAPSULE BY MOUTH EVERY NIGHT AT BEDTIME 12/04/2013 07/06/2014 Inactive Lasix 20 mg tablet RxNorm: TABLET(S) PO TAKE 2 TABLETS BY MOUTH EVERY MORNING AND 1 TABLET BY MOUTH AT 3 PM 12/04/2013 12/09/2014 Inactive Voltaren 1 % topical gel RxNorm: 574316 4 Gram(s) TOP QID 11/2703/26/2014 Inactive Cartia XT 180 mg capsule,extended release RxNorm: 455216 1 Capsule(s) PO daily TAKE 1 CAPSULE BY MOUTH AT BEDTIME ..TAKE THIS IN ADDITION TO 240 MG IN THE MORNING 11/27/2013 01/12/2015 Inactive Lasix 20 mg tablet RxNorm: TABLET(S) PO TAKE 2 TABLETS BY MOUTH EVERY MORNING AND 1 TABLET BY MOUTH AT 3 PM 11/26/2013 02/19/2014 Inactive colestipol 1 gram tablet RxNorm: 6796339 1 Tablet(s) PO BID TAKE 1 TABLET BY MOUTH TWICE DAILY 11/26/2013 11/20/2014 Inactive cyclobenzaprine 10 mg tablet RxNorm: 612334 Tablet(s) PO TAKE 1 TABLET BY MOUTH EVERY 8 HOURS NEEDED 11/21/20132013 Inactive Diflucan 150 mg tablet RxNorm: 869953 1 Tablet(s) PO daily TAKE 1 TABLET BY MOUTH EVERY OTHER DAY FOR 8 DOSES 11/14/201306/2013 Inactive peak flow meter-inh assist dev kit RxNorm: 1 dose Miscellaneous PRN 11/14/2013 10/27/2017 Inactive Effexor XR 37.5 mg capsule,extended release RxNorm: 152693 Capsule(s) PO TAKE 2 CAPSULES BY MOUTH EVERY MORNING AND 1 CAPSULE BY MOUTH EVERY NIGHT AT BEDTIME 11/04/2013 12/03/2013 Inactive Anusol-HC 25 mg suppository RxNorm: 2403771 1 Suppository RTL PRN one per rectum as needed, up to twice daily for hemorrhoid, no more than 7 days in a row 10/23/2013 10/22/2013 Inactive Anusol-HC 25 mg suppository RxNorm: 8744208 1 Suppository RTL PRN one per rectum as needed, up to twice daily for hemorrhoid, no more than 7 days in a row 10/23/2013 01/09/2014 Inactive Activella 0.5 mg-0.1 mg tablet RxNorm: 4297931 Tablet(s) PO TAKE 1 TABLET BY MOUTH DAILY FOR MENOPAUSAL SYMPTOM 10/21/2013 01/07/2014 Inactive cyclobenzaprine 10 mg tablet RxNorm: 238135 Tablet(s) PO TAKE 1 TABLET BY MOUTH EVERY 8 HOURS NEEDED 10/21/20132013 Inactive Lasix 20 mg tablet RxNorm: 039275 Tablet(s) PO TAKE 2 TABLETS BY MOUTH EVERY MORNING AND 1 TABLET BY MOUTH AT 3 PM 10/17/2013 02/25/2016 Inactive Bactroban 2 % topical ointment RxNorm: 828410 1 Application TOP BID 10/10/2013 11/06/2013 Inactive Zofran 4 mg tablet RxNorm: 504664 1 Tablet(s) PO Q4-6H 201303/20/2014 Inactive Bactroban 2 % topical ointment RxNorm: 249368 1 Application TOP BID 09/27/2013 10/09/2013 Inactive hydrocodone 5 mg-acetaminophen 325 mg tablet RxNorm: 778412 Tablet(s) PO TAKE 1 TABLET BY MOUTH EVERY 6 HOURS NEEDED FOR PAIN 09/26/2013 12/11/2013 Inactive ( Appended: Controlled substance eRx refill - RxReferenceNumber: [id number]|1|0|1 ) hydrocodone 5 mg-acetaminophen 325 mg tablet RxNorm: 117168 1 Tablet(s) PO Q6 PRN 09/26/2013 01/24/2014 Inactive cyclobenzaprine 10 mg tablet RxNorm: 835076 Tablet(s) PO TAKE 1 TABLET BY MOUTH EVERY 8 HOURS NEEDED 09/16/2013 No Stop Date Active omeprazole 20 mg capsule,delayed release RxNorm: 780926 Capsule(s) PO TAKE 1 CAPSULE BY MOUTH TWICE DAILY 09/02/2013 Inactive Lasix 20 mg tablet RxNorm: 700856 Tablet(s) PO TAKE 2 TABLETS BY MOUTH EVERY MORNING AND 1 TABLET BY MOUTH AT 3 PM 09/02/2013 04/10/2016 Inactive Diflucan 150 mg tablet RxNorm: 364315 Tablet(s) PO TAKE 1 TABLET BY MOUTH EVERY OTHER DAY FOR 8 DOSES 08/29/20132013 Inactive Effexor XR 37.5 mg capsule,extended release RxNorm: 826686 Capsule(s) PO TAKE 2 CAPSULES BY MOUTH EVERY MORNING AND 1 CAPSULE BY MOUTH EVERY NIGHT AT BEDTIME 08/29/2013 11/03/2013 Inactive diltiazem ER (XR/XT) 240 mg capsule,extended release, controlled RxNorm: 682551 Capsule(s) PO TAKE 1 CAPSULE BY MOUTH EVERY DAY 201312/03/2013 Inactive Xanax 0.5 mg tablet RxNorm: 692253 1 Tablet(s) PO TID PRN 11/2013 No Stop Date Active (Appended: Controlled substance eRx refill - RxReferenceNumber: [id number]| [id number]|1|0|1) colestipol 1 gram tablet RxNorm: 1975076 Tablet(s) PO TAKE 1 TABLET BY MOUTH TWICE DAILY 08/26/2013 11/25/2013 Inactive Victoza 3-Babak 0.6 mg/0.1 mL (18 mg/3 mL) subcutaneous pen injector RxNorm: 656020 1.2 Milligram(s) SQ daily 0.6 x 2 weeks then increase to 1.2mg daily 08/19/2013 12/16/2013 Inactive Synthroid 88 mcg tablet RxNorm: 212014 1 Tablet(s) PO daily 12/09/2013 Inactive Lasix 20 mg tablet RxNorm: Tablet(s) PO TAKE 2 TABLETS BY MOUTH EVERY MORNING AND 2 TABLETS BY MOUTH AT 3 PM 08/12/2013 10/18/2016 Inactive Xanax 0.5 mg tablet RxNorm: 953698 1 Tablet(s) PO TID PRN No Stop Date Active (Appended: Controlled substance eRx refill - RxReferenceNumber: [id number]| [id number]|1|0|1) Lasix 20 mg tablet RxNorm: Tablet(s) PO TAKE 2 TABLETS BY MOUTH EVERY MORNING AND 1 TABLET BY MOUTH AT 3 PM 08/07/2013 08/11/2013 Inactive Voltaren 1 % topical gel RxNorm: 351549 4 Gram(s) TOP QID 08/0111/26/2013 Inactive Zyvox 600 mg tablet RxNorm: 082423 1 Tablet(s) PO BID 201307/27/2013 Inactive please call the office is this is too expensive for the pt Zyvox 600 mg tablet RxNorm: 319055 1 Tablet(s) PO BID 201307/17/2013 Inactive hydrocodone 5 mg-acetaminophen 325 mg tablet RxNorm: 4125201 1 Tablet(s) PO Q6 PRN 07/15/2013 09/26/2013 Inactive Zofran 4 mg tablet RxNorm: 853611 1 Tablet(s) PO Q4-6H 201310/02/2013 Inactive Lasix 20 mg tablet RxNorm: Tablet(s) PO TAKE 2 TABLETS BY MOUTH EVERY MORNING AND 1 TABLET BY MOUTH AT 3 PM 07/11/2013 10/18/2016 Inactive cyclobenzaprine 10 mg tablet RxNorm: 061592 1 Tablet(s) PO Q8 PRN 06/27/2013 08/25/2013 Inactive gabapentin 600 mg tablet RxNorm: 529484 1.5 Tablet(s) PO TID 01/02/2014 Inactive Lasix 20 mg tablet RxNorm: Tablet(s) PO TAKE 2 TABLETS BY MOUTH EVERY MORNING AND 1 TABLET BY MOUTH AT 3 PM 06/17/2013 07/10/2013 Inactive hydrocodone 5 mg-acetaminophen 325 mg tablet RxNorm: 158450 1 Tablet(s) PO Q6 PRN 06/10/2013 07/14/2013 Inactive hydrocortisone 2.5 % rectal cream RxNorm: 959424 1 Suppository RTL BID PRN 06/10/2013 06/29/2013 Inactive Flexeril 10 mg tablet RxNorm: 634006 1 Tablet(s) PO Q8 PRN 06/0406/26/2013 Inactive diltiazem ER (XR/XT) 240 mg capsule,extended release, controlled RxNorm: 863707 Capsule(s) PO TAKE 1 CAPSULE BY MOUTH EVERY DAY 201310/26/2017 Inactive omeprazole 20 mg capsule,delayed release RxNorm: 364061 Capsule(s) PO TAKE 1 CAPSULE BY MOUTH TWICE DAILY 05/24/2013 Inactive colestipol 1 gram tablet RxNorm: 1934789 Tablet(s) PO TAKE 1 TABLET BY MOUTH TWICE DAILY 05/23/2013 04/21/2016 Inactive Januvia 100 mg tablet RxNorm: 350927 1 Tablet(s) PO daily 201308/18/2013 Inactive Activella 0.5 mg-0.1 mg tablet RxNorm: 691800 Tablet(s) PO TAKE 1 TABLET BY MOUTH DAILY FOR MENOPAUSAL SYMPTOM 05/17/2013 Inactive Xanax 0.5 mg tablet RxNorm: 588991 1 Tablet(s) PO TID PRN 08/06/2013 Inactive (Appended: Controlled substance eRx refill - RxReferenceNumber: [id number]| [id number]|1|0|1) Kenalog 40 mg/mL suspension for injection RxNorm: 9400990 Milliliter(s) Inj 05/07/2013 05/07/2013 Inactive levofloxacin 500 mg tablet RxNorm: 558050 1 Tablet(s) PO daily pt to take 500mg on day#1, 3, 5, 7 and 1/2 tablet on days 2, 4, 6, and 8 05/0705/14/2013 Inactive Lyrica 50 mg capsule RxNorm: 274454 1 Capsule(s) PO TID 201206/26/2013 Inactive hydrocodone 5 mg-acetaminophen 500 mg tablet RxNorm: 993762 1 Tablet(s) PO Q6 PRN 04/22/2013 06/09/2013 Inactive Zofran 4 mg tablet RxNorm: 183728 1 Tablet(s) PO Q4-6H 201207/14/2013 Inactive Zofran 4 mg tablet RxNorm: 136886 1 Tablet(s) PO Q6 PRN 04/0404/08/2013 Inactive hydrocodone 5 mg-acetaminophen 500 mg tablet RxNorm: 938469 1 Tablet(s) PO Q6 PRN 03/21/2013 04/21/2013 Inactive Diflucan 150 mg tablet RxNorm: 435289 1 Tablet(s) PO every other day 1 pill po every other day x 8 doses 03/19/201306/26 Inactive potassium chloride ER 10 mEq tablet,extended release RxNorm: 864920 1 Tablet(s) PO QDAY PRN take with lasix 03/07/201302/2014 Inactive potassium chloride ER 10 mEq tablet,extended release RxNorm: 825635 1 Tablet(s) PO QDAY PRN take with lasix 03/04/2013 Inactive fluconazole 150 mg tablet RxNorm: 451596 1 Tablet(s) PO daily 03/01/2013 02/28/2013 Inactive fluconazole 150 mg tablet RxNorm: 415904 1 Tablet(s) PO daily 03/01/2013 03/05/2013 Inactive Combivent 18 mcg-103 mcg/actuation Aerosol Inhaler RxNorm: 462807 2 Puff(s) INH QID 02/12/2013 02/12/2013 Inactive Zofran 4 mg tablet RxNorm: 960982 1 Tablet(s) PO Q6 PRN 02/1104/03/2013 Inactive Lasix 20 mg tablet RxNorm: 022937 1 Tablet(s) PO BID one pill in morning and one pill in afternoon (3pm) 02/04/2013 Inactive Xopenex HFA 45 mcg/actuation Aerosol Inhaler RxNorm: 872955 2 INH QID 01/29/2013 09/21/2015 Inactive Effexor XR 37.5 mg capsule,extended release RxNorm: 430029 2 q am and 1 at hs Capsule(s) PO TAKE 2 CAPSULES BY MOUTH EVERY MORNING AND 1 CAPSULE EVERY NIGHT AT BEDTIME 01/29/2013 02/15/2016 Inactive fluconazole 150 mg tablet RxNorm: 993490 1 Tablet(s) PO daily 01/29/2013 02/02/2013 Inactive hydrocodone 5 mg-acetaminophen 500 mg tablet RxNorm: 948540 1 Tablet(s) PO Q6 PRN 01/29/2013 03/20/2013 Inactive Effexor XR 37.5 mg capsule,extended release RxNorm: 773721 Capsule(s) PO 01/29/2013 08/28/2013 Inactive TAKE 2 CAPSULES BY MOUTH EVERY MORNING AND 1 CAPSULE EVERY NIGHT AT BEDTIME doxycycline hyclate 100 mg tablet RxNorm: 642430 1 Tablet(s) PO BID 01/01/2013 01/10/2013 Inactive doxycycline hyclate 100 mg tablet RxNorm: 496877 1 Tablet(s) PO BID 01/01/2013 12/31/2012 Inactive Synthroid 75 mcg tablet RxNorm: 069319 1 Tablet(s) PO daily 06/29/2013 Inactive Synthroid 75 mcg tablet RxNorm: 285212 1 Tablet(s) PO daily 12/31/2012 Inactive Xanax 0.5 mg tablet RxNorm: 334182 Tablet(s) PO TAKE 1/2 TO 1 TABLET BY MOUTH EVERY 8 HOURS NEEDED FOR ANXIETY 12/27/2012 05/06/2013 Inactive (Appended: Controlled substance eRx refill - RxReferenceNumber: [id number]|1|0|1) Lasix 20 mg tablet RxNorm: 705608 1 Tablet(s) PO daily 201202/03/2013 Inactive Santyl 250 unit/gram Topical Ointment RxNorm: 8365508 1 Application TOP daily 12/20/2012 12/29/2012 Inactive Levaquin 500 mg tablet RxNorm: 066277 1 Tablet(s) PO daily 05/201212/26/2012 Inactive acyclovir 400 mg tablet RxNorm: 556247 1 Tablet(s) PO TID 12/0312/09/2012 Inactive acyclovir 400 mg tablet RxNorm: 495310 1 Tablet(s) PO TID 12/0312/02/2012 Inactive fluconazole 150 mg tablet RxNorm: 235161 1 Tablet(s) PO daily 11/26/2012 11/30/2012 Inactive Effexor XR 37.5 mg capsule,extended release RxNorm: 213341 Capsule(s) PO TAKE 2 CAPSULES BY MOUTH EVERY MORNING AND 1 CAPSULE EVERY NIGHT AT BEDTIME 11/14/2012 01/28/2013 Inactive albuterol sulfate 1.25 mg/3 mL solution for nebulization RxNorm: 782892 3 Milliliter(s) INH TID 10/29/20122012 Inactive 1 box Cartia XT 180 mg capsule,extended release RxNorm: 775945 1 Capsule(s) PO daily TAKE 1 CAPSULE BY MOUTH AT BEDTIME ..TAKE THIS IN ADDITION TO 240 MG IN THE MORNING 10/29/2012 11/26/2013 Inactive acyclovir 800 mg tablet RxNorm: 136684 1 Tablet(s) PO BID 10/2911/04/2012 Inactive Diflucan 150 mg tablet RxNorm: 140296 1 Tablet(s) PO daily 10/14/2012 Inactive TAKE 1 TABLET BY MOUTH EVERY DAY Toprol XL 100 mg tablet,extended release RxNorm: 293886 1 Tablet(s) PO BID 10/11/2012 09/05/2013 Inactive Zithromax Z-Babak 250 mg tablet RxNorm: 259579 Tablet(s) PO UD as directed. 1 refill , please take back to back 10/05/2012 No Stop Date Active Kenalog 40 mg/mL Susp for Injection RxNorm: 8983110 1 Milliliter(s) Inj QID 09/21/2012 05/07/2013 Inactive fluconazole 150 mg tablet RxNorm: 924628 1 Tablet(s) PO every other day x 5 doses 09/12/2012 11/25/2012 Inactive levothyroxine 50 mcg tablet RxNorm: 355393 1 Tablet(s) PO daily 09/06/2012 12/31/2012 Inactive atorvastatin 40 mg tablet RxNorm: 363929 1 Tablet(s) PO daily 09/06/2012 08/31/2013 Inactive TAKE 1 TABLET BY MOUTH DAILY (THIS IS AN INCREASE IN DOSAGE) Xanax 0.5 mg tablet RxNorm: 850032 Tablet(s) PO TAKE 1/2 TO 1 TABLET BY MOUTH EVERY 8 HOURS NEEDED FOR ANXIETY 08/27/2012 12/26/2012 Inactive (Appended: Controlled substance eRx refill - RxReferenceNumber: [id number]|1|0|1) Zofran 4 mg tablet RxNorm: 072756 1 Tablet(s) PO Q6 PRN 08/1302/10/2013 Inactive Cipro 500 mg tablet RxNorm: 804264 1 Tablet(s) PO BID 201208/07/2012 Inactive Cipro 500 mg tablet RxNorm: 866888 1 Tablet(s) PO BID 201208/12/2012 Inactive Flagyl 500 mg tablet RxNorm: 972577 1 Tablet(s) PO TID 201208/12/2012 Inactive cefdinir 300 mg capsule RxNorm: 611676 1 Capsule(s) PO BID 08/201207/29/2012 Inactive nystatin 100,000 unit/mL Oral Susp RxNorm: 168018 6 Unit(s) PO QID 07/06/2012 07/15/2012 Inactive Kenalog 40 mg/mL Susp for Injection RxNorm: 7755569 1 Milliliter(s) Inj 07/06/2012 07/06/2012 Inactive Zithromax 500 mg tablet RxNorm: 2013783 1 Tablet(s) PO daily 07/10/2012 Inactive metformin 850 mg tablet RxNorm: 094290 1/2 Tablet(s) PO TID 09/201208/24/2012 Inactive TAKE 1 TABLET BY MOUTH IN THE MORNING, 1/2 TABLET AT NOON, AND 1 TABLET IN THE EVENING Lyrica 50 mg capsule RxNorm: 567763 1 Capsule(s) PO TID 201206/25/2012 Inactive Diflucan 150 mg tablet RxNorm: 699185 1 Tablet(s) PO daily 05/201206/25/2012 Inactive TAKE 1 TABLET BY MOUTH EVERY DAY Levaquin 500 mg tablet RxNorm: 217870 1 Tablet(s) PO daily 06/19/2012 Inactive Pneumovax 23 25 mcg/0.5 mL Injection RxNorm: 022732 1/2 Milliliter(s) Inj 06/07/2012 06/07/2012 Inactive metformin 850 mg tablet RxNorm: 097823 1/2 Tablet(s) PO BID 06/25/2012 Inactive TAKE 1 TABLET BY MOUTH IN THE MORNING, 1/2 TABLET AT NOON, AND 1 TABLET IN THE EVENING cefdinir 300 mg capsule RxNorm: 196964 1 Capsule(s) PO BID 02/201305/30/2012 Inactive cefdinir 300 mg capsule RxNorm: 445952 1 Capsule(s) PO BID 02/201306/06/2012 Inactive prednisone 10 mg tablets in a dose pack RxNorm: 313244 Tablet(s) PO UD 6-5-4-3-2- 1 05/31/2012 05/06/2013 Inactive Cipro 500 mg tablet RxNorm: 715220 1 Tablet(s) PO BID 201206/03/2012 Inactive Xanax 0.5 mg tablet RxNorm: 354768 Tablet(s) PO TAKE 1/2 TO 1 TABLET BY MOUTH EVERY 8 HOURS NEEDED FOR ANXIETY 05/28/2012 08/27/2012 Inactive (Appended: Controlled substance eRx refill - RxReferenceNumber: [id number]|1|0|1) Cartia XT 180 mg capsule,extended release RxNorm: 587316 Capsule(s) PO TAKE 1 CAPSULE BY MOUTH AT BEDTIME ..TAKE THIS IN ADDITION TO 240 MG IN THE MORNING 05/24/2012 10/28/2012 Inactive Diflucan 150 mg tablet RxNorm: 637189 1 Tablet(s) PO daily 06/201205/26/2012 Inactive TAKE 1 TABLET BY MOUTH EVERY DAY Cartia XT 240 mg capsule,extended release RxNorm: 172551 1 Capsule(s) PO QAM 05/23/2012 09/06/2012 Inactive in addition to 180mg q pm omeprazole 20 mg capsule,delayed release RxNorm: 990724 Capsule(s) PO TAKE 1 CAPSULE BY MOUTH TWICE DAILY 05/21/2012 Inactive diltiazem ER (XR/XT) 240 mg capsule,extended release, controlled RxNorm: 495509 1 Capsule(s) PO daily TAKE ONE CAPSULE BY MOUTH EVERY DAY 05/21/2012 05/30/2013 Inactive Toprol XL 25 mg tablet,extended release RxNorm: 290608 1 Tablet(s) PO QPM take with 50mg (1/2 tab of 100mg) each evening. Continue 100mg in the morning. 05/17/2012 05/27/2012 Inactive Activella 0.5 mg-0.1 mg tablet RxNorm: 5174661 Tablet(s) PO TAKE 1 TABLET BY MOUTH DAILY FOR MENOPAUSAL SYMPTOM 05/09/2012 05/16/2013 Inactive colestipol 1 gram tablet RxNorm: 6173151 Tablet(s) PO TAKE 1 TABLET BY MOUTH TWICE DAILY 05/08/2012 04/21/2016 Inactive Kenalog 40 mg/mL Susp for Injection RxNorm: 8482456 1 Milliliter(s) Inj 05/02/2012 05/02/2012 Inactive Xanax 0.5 mg tablet RxNorm: 255482 Tablet(s) PO 04/16/2012 05/28/2012 Inactive TAKE 1/2 TO 1 TABLET BY MOUTH EVERY 8 HOURS NEEDED FOR ANXIETY (Appended: Controlled substance eRx refill - RxReferenceNumber: [id number]|1|0|1) Diflucan 150 mg tablet RxNorm: 332184 1 Tablet(s) PO daily 05/22/2012 Inactive TAKE 1 TABLET BY MOUTH EVERY DAY Cipro 500 mg tablet RxNorm: 654919 1 Tablet(s) PO BID 201104/19/2012 Inactive Zithromax Z-Babak 250 mg tablet RxNorm: 122477 Tablet(s) PO UD 05/30/2012 Inactive metformin 850 mg tablet RxNorm: 889210 Tablet(s) PO take one pill by mouth in AM, 1/2 at noon, and 1 pill in the evening. 03/16/2012 06/06/2012 Inactive TAKE 1 TABLET BY MOUTH IN THE MORNING, 1/2 TABLET AT NOON, AND 1 TABLET IN THE EVENING Xanax 0.5 mg tablet RxNorm: 215262 Tablet(s) PO 03/05/2012 04/15/2012 Inactive TAKE 1/2 TO 1 TABLET BY MOUTH EVERY 8 HOURS NEEDED FOR ANXIETY (Appended: Controlled substance eRx refill - RxReferenceNumber: [id number]|1|0|1) potassium chloride ER 10 mEq tablet,extended release RxNorm: 164575 1 Tablet(s) PO QDAY PRN take with lasix 03/05/201204/2013 Inactive potassium chloride ER 10 mEq tablet,extended release RxNorm: 236773 1 Tablet(s) PO QDAY PRN take with lasix 02/28/2012 Inactive Lasix 20 mg tablet RxNorm: 473594 Tablet(s) PO QDAY PRN 02/2708/25/2012 Inactive doxycycline hyclate 100 mg capsule RxNorm: 485703 1 Capsule(s) PO BID 02/27/2012 03/04/2012 Inactive Effexor XR 37.5 mg capsule,extended release RxNorm: 357388 Capsule(s) PO 02/26/2012 01/28/2013 Inactive TAKE 2 CAPSULES BY MOUTH EVERY MORNING AND 1 CAPSULE EVERY NIGHT AT BEDTIME Lomotil 2.5 mg-0.025 mg tablet RxNorm: 2689805 Tablet(s) PO 07/201103/05/2012 Inactive 1 after each loose bm limit 4 per day doxycycline hyclate 100 mg capsule RxNorm: 597326 1 Capsule(s) PO BID 02/15/2012 02/21/2012 Inactive Diflucan 150 mg tablet RxNorm: 863576 Tablet(s) PO daily 201102/21/2012 Inactive TAKE 1 TABLET BY MOUTH EVERY DAY colestipol,micronized 1 gram tablet RxNorm: 1599160 Tablet(s) PO 02/06/2012 04/21/2016 Inactive TAKE 1 TABLET BY MOUTH TWICE DAILY Effexor XR 37.5 mg capsule,extended release RxNorm: 777071 Capsule(s) PO 02/06/2012 02/16/2016 Inactive TAKE 2 CAPSULES BY MOUTH EVERY MORNING AND 1 CAPSULE EVERY NIGHT AT BEDTIME potassium chloride ER 10 mEq tablet,extended release RxNorm: 342787 1 Tablet(s) PO QDAY PRN take with lasix 02/01/201212/2011 Inactive Levaquin 500 mg tablet RxNorm: 596063 1 Tablet(s) PO daily 04/201202/07/2012 Inactive Diflucan 150 mg tablet RxNorm: 354425 Tablet(s) PO 01/27/2012 02/14/2012 Inactive TAKE 1 TABLET BY MOUTH EVERY DAY Effexor XR 37.5 mg capsule,extended release RxNorm: 833738 Capsule(s) PO 01/05/2012 02/05/2012 Inactive TAKE 2 CAPSULES BY MOUTH EVERY MORNING , AND 1 CAPSULE BY MOUTH EVERY NIGHT AT BEDTIME Effexor XR 37.5 mg capsule,extended release RxNorm: 931673 Capsule(s) PO 12/29/2011 01/04/2012 Inactive TAKE 2 CAPSULES BY MOUTH EVERY MORNING , AND 1 CAPSULE BY MOUTH EVERY NIGHT AT BEDTIME Diflucan 150 mg tablet RxNorm: 043813 Tablet(s) PO 12/29/2011 04/09/2012 Inactive TAKE 1 TABLET BY MOUTH EVERY DAY Cipro 500 mg tablet RxNorm: 995432 1 Tablet(s) PO BID 201101/07/2012 Inactive Toprol XL 100 mg tablet,extended release RxNorm: 411518 Tablet(s) PO as doctor directed one tab in am and 1/2 at night 11/30/2011 10/10/2012 Inactive Phenergan 25 mg/mL Injection RxNorm: 372518 Milliliter(s) Inj 11/30/2011 11/30/2011 Inactive Toprol XL 100 mg 24 hr Tab RxNorm: 142635 1.5 Tablet(s) PO as doctor directed one tab in am and 1/2 at night 11/17/201102/2012 Inactive Xopenex HFA 45 mcg/actuation Aerosol Inhaler RxNorm: 003055 2 INH QID 11/08/2011 12/01/2012 Inactive Effexor XR 150 mg 24 hr Cap RxNorm: 110846 1 Capsule(s) PO daily 10/24/2011 01/04/2012 Inactive Xanax 0.5 mg tablet RxNorm: 237988 1/2-1 Tablet(s) PO Q8 PRN 10/20/2011 03/05/2012 Inactive levothyroxine 25 mcg tablet RxNorm: 231794 Tablet(s) PO 201109/05/2012 Inactive TAKE 1 TABLET BY MOUTH DAILY Xanax 0.5 mg Tab RxNorm: 630937 1/2-1 Tablet(s) PO Q8 PRN 09/26/2011 10/19/2011 Inactive potassium chloride ER 10 mEq Tab RxNorm: 109866 1 Tablet(s) PO daily 09/20/2011 09/24/2011 Inactive Lasix 20 mg Tab RxNorm : 546950 1 Tablet(s) PO daily 09/20/2011 09/24/2011 Inactive Xanax 0.5 mg Tab RxNorm: 560243 1/2-1 Tablet(s) PO Q8 PRN 09/12/2011 09/25/2011 Inactive Xanax 0.5 mg Tab RxNorm: 834014 1/2-1 Tablet(s) PO Q8 PRN 08/24/2011 09/11/2011 Inactive Lipitor 20 mg tablet RxNorm: 144668 Tablet(s) PO 08/22/2011 09/05/2012 Inactive TAKE 1 TABLET BY MOUTH DAILY (THIS IS AN INCREASE IN DOSAGE) Cipro 500 mg Tab RxNorm: 582325 1 Tablet(s) PO BID 201110/24/2011 Inactive Flagyl 500 mg Tab RxNorm: 803272 1 Tablet(s) PO TID 201110/24/2011 Inactive Diflucan 150 mg Tab RxNorm: 206495 1 Tablet(s) PO daily 201110/24/2011 Inactive Kenalog 40 mg/mL Susp for Injection RxNorm: 1318477 1 Milliliter(s) Inj 08/01/2011 10/24/2011 Inactive FreeStyle Lancets RxNorm: 1 test Miscellaneous TID 201107/08/2014 Inactive dispense quantity sufficient for three times daily testing for diabetes FreeStyle Test Strips RxNorm: 1 Miscellaneous BID 07/21/2011 08/13/2012 Inactive please give lancets alsodx 250.02 Xanax 0.25 mg Tab RxNorm: 945920 1 Tablet(s) PO Q8 PRN 07/06 No Stop Date Active colestipol 1 gram Tab RxNorm: 3221053 Tablet(s) PO 07/04/2011 04/21/2016 Inactive TAKE 1 TABLET BY MOUTH TWICE DAILY DIRECTED colestipol 1 gram tablet RxNorm: 4022605 1 Tablet(s) PO BID 07/03/2011 Inactive Cartia XT 180 mg capsule,extended release RxNorm: 275039 1 Capsule(s) PO QHS 06/30/2011 11/16/2011 Inactive in addition to 240mg q am venlafaxine 37.5 mg Tab RxNorm: 550456 1 Tablet(s) PO BID 06/2406/29/2011 Inactive prednisone 5 mg Tab RxNorm: 975621 Tablet(s) PO UD 2011 10/24/2011 Inactive six day taper #21 Lyrica 50 mg capsule RxNorm: 814969 1 Capsule(s) PO TID 201108/18/2011 Inactive Diflucan 150 mg tablet RxNorm: 991361 1 Tablet(s) PO daily 06/24/2011 Inactive levofloxacin 500 mg Tab RxNorm: 066425 1 Tablet(s) PO daily 08/15/2011 Inactive azithromycin 250 mg Tab RxNorm: 830666 PO 05/23/2011 06/20/2011 Inactive omeprazole 20 mg capsule,delayed release RxNorm: 719848 Capsule(s) PO 05/10/2011 05/20/2012 Inactive TAKE 1 CAPSULE BY MOUTH TWICE DAILY;Patient requests 90 day supply diltiazem ER (XR/XT) 240 mg capsule,extended release, controlled RxNorm: 359701 Capsule(s) PO 04/19/2011 05/21/2012 Inactive TAKE 1 CAPSULE BY MOUTH EVERY MORNING;Patient requests 90 day supply Kenalog 40 mg/mL Susp for Injection RxNorm: 0862548 1 Milliliter(s) Inj 04/18/2011 06/20/2011 Inactive clindamycin 300 mg Cap RxNorm: 282439 1 Capsule(s) PO BID 04/1806/20/2011 Inactive lisinopril-hydrochlorothiazide 20 mg-12.5 mg Tab RxNorm: 786788 2 Tablet(s) PO daily 04/18/2011 10/24/2011 Inactive fluconazole 150 mg Tab RxNorm: 216363 1 Tablet(s) PO daily 07/201006/20/2011 Inactive Activella 0.5 mg-0.1 mg tablet RxNorm: 4951214 Tablet(s) PO 05/201005/08/2012 Inactive TAKE 1 TABLET BY MOUTH DAILY FOR MENOPAUSAL SYMPTOM diltiazem ER (XR/XT) 240 mg Continuous Release Cap RxNorm: 473776 1 Capsule(s) PO daily 03/17/2011 03/16/2011 Inactive diltiazem ER (XR/XT) 240 mg Continuous Release Cap RxNorm: 032306 Capsule(s) PO 03/17/2011 06/20/2011 Inactive TAKE 1 CAPSULE BY MOUTH EVERY MORNING metformin 850 mg tablet RxNorm: 814477 1 Tablet(s) PO as doctor directed take one pill by mouth in AM, 1/2 at noon, and 1 pill in the evening. 01/21/2011 04/20/2011 Inactive Xopenex 1.25 mg/3 mL solution for nebulization RxNorm: 131189 3 Milliliter(s) INH Q6 PRN No Start Date Active Novolog Flexpen U-100 Insulin aspart 100 unit/mL subcutaneous RxNorm: 0409212 10 units with meals plus SSI in comments per dr forbes Unit(s) SQ No Start Date Active Novolg 10 units before meals PLUS extra if blood sugar is high. Add 1 u for BG 151-175, 2u for BG 176-200, 3 u for BG 201-225, 4u BG 226-250, 6u for BG 251-275, add 7u for BG 276-300, add 8u 301-325 Lomotil 2.5 mg-0.025 mg tablet RxNorm: 8477381 Tablet(s) PO No Start Date 02/21/2012 Inactive 1 after each loose bm limit 4 per day Novolog Flexpen U-100 Insulin aspart 100 unit/mL subcutaneous RxNorm: 1720733 10 Unit(s) SQ AC No Start Date 10/26 Inactive with sliding scale-Dr Yanna Grandesilamonte FlexTouch U-100 100 unit/mL (3 mL) subcutaneous insulin pen RxNorm: 9889034 40 Unit(s) SQ daily No Start Date Inactive gabapentin 600 mg tablet RxNorm: 202234 1 Tablet(s) PO TID No Start Date 06/26/2013 Inactive Effexor XR 37.5 mg capsule,extended release RxNorm: 085712 1 Capsule(s) PO BID No Start Date 10/23/2011 Inactive Levemir FlexTouch 100 unit/mL (3 mL) subcutaneous insulin pen RxNorm: 356031 50 Unit(s) SQ BID No Start Date 04/24/2017 Inactive Combivent Respimat 20 mcg-100 mcg/actuation solution for inhalation RxNorm: 9004555 1 INH QID No Start Date 05/11/2014 Inactive Xanax 0.5 mg Tab RxNorm: 687644 1/2-1 Tablet(s) PO Q8 PRN No Start Date 08/23/2011 Inactive Xopenex HFA 45 mcg/actuation Aerosol Inhaler RxNorm: 464597 2 INH QID No Start Date 11/07/2011 Inactive promethazine 25 mg tablet RxNorm: 590820 1 Tablet(s) PO Q8 as needed No Start Date 08/12/2015 Inactive colestipol 1 gram Tab RxNorm: 9976976 1 Tablet(s) PO BID No Start Date 07/03/2011 Inactive Cartia XT 240 mg capsule,extended release RxNorm: 288630 1 Capsule(s) PO QAM No Start Date 05/22/2012 Inactive in addition to 180mg q pm Lipitor 20 mg Tab RxNorm: 029969 1 Tablet(s) PO daily No Start Date 08/21/2011 Inactive FreeStyle Test Strips RxNorm: 1 Miscellaneous BID No Start Date 07/20/2011 Inactive Toujeo SoloStar U-300 Insulin 300 unit/mL (1.5 mL) subcutaneous pen RxNorm: 8413578 40 Unit(s) SQ BID No Start Date 10/26/2017 Inactive Diflucan 150 mg tablet RxNorm: 360687 1 Tablet(s) PO daily 1 pill po every other day x 8 doses No Start Date 03/18/2013 Inactive hydrocodone 5 mg-acetaminophen 500 mg tablet RxNorm: 610124 1 Tablet(s) PO Q6 PRN No Start Date 01/28/2013 Inactive Lasix 20 mg tablet RxNorm: 673065 Tablet(s) PO QDAY PRN No Start Date 02/27/2012 Inactive Promethazine VC 6.25 mg-5 mg/5 mL Syrup RxNorm: 3859562 1-2 PO Q6 PRN No Start Date 10/07/2013 Inactive promethazine 25 mg tablet RxNorm: 047954 1 Tablet(s) PO Q6 PRN No Start Date 02/09/2017 Inactive digoxin 125 mcg tablet RxNorm: 297791 1 Tablet(s) PO daily No Start Date 06/20/2017 Inactive Xanax 0.25 mg Tab RxNorm: 777784 1 Tablet(s) PO Q8 PRN No Start Date 07/05/2011 Inactive Diflucan 150 mg tablet RxNorm: 122370 1 Tablet(s) PO every other day x 4 doses No Start Date 04/09/2014 Inactive Carafate 100 mg/mL Oral Susp RxNorm: 069130 2 Teaspoon(s) PO daily No Start Date 10/24/2011 Inactive prednisone 5 mg Tab RxNorm: 216309 Tablet(s) PO UD No Start Date 06/22/2011 Inactive six day taper #21 Tessalon Perles 100 mg capsule RxNorm: 382716 2 Capsule(s) PO TID as needed No Start Date 05/16/2017 Inactive Bactroban 2 % topical ointment RxNorm: 169427 1 Application TOP BID No Start Date 09/26/2013 Inactive Phenergan 25 mg tablet RxNorm: 556095 1 Tablet(s) PO Q8 as needed nausea No Start Date 06/28/2015 Inactive flecainide 50 mg tablet RxNorm: 002538 1 Tablet(s) PO BID No Start Date 02/01/2016 Inactive Activella 0.5 mg-0.1 mg Tab RxNorm: 9352705 1 Tablet(s) PO daily No Start Date 03/21/2011 Inactive hydrocodone 10 mg-acetaminophen 325 mg tablet RxNorm: 852778 1 Tablet(s) PO Q6 as needed No Start Date 02/04/2016 Inactive lisinopril 20 mg Tab RxNorm: 144252 1 Tablet(s) PO daily No Start Date 06/20/2011 Inactive prednisone 10 mg tablets in a dose pack RxNorm: 333230 Tablet(s) PO UD 6-5-4-3-2- 1 No Start Date 05/30/2012 Inactive hydrocodone 7.5 mg-acetaminophen 325 mg tablet RxNorm: 296289 1 Tablet(s) PO Q6 PRN No Start Date 10/06/2013 Inactive hyoscyamine 0.125 mg sublingual tablet RxNorm: 4697719 1 Tablet(s) SL TID as needed No Start Date 05/16/2017 Inactive Cartia XT 180 mg 24 hr Cap RxNorm: 041250 1 Capsule(s) PO QHS No Start Date 06/29/2011 Inactive in addition to 240mg q am Zofran 4 mg tablet RxNorm: 833127 1 Tablet(s) PO Q6 PRN No Start Date 08/12/2012 Inactive omeprazole 20 mg Cap, Delayed Release RxNorm: 738208 1 Capsule(s) PO BID No Start Date 05/09/2011 Inactive venlafaxine 37.5 mg Tab RxNorm: 343117 1 Tablet(s) PO BID No Start Date 10/24/2011 Inactive Vesicare 10 mg tablet RxNorm: 201320 1 Tablet(s) PO daily No Start Date 09/28/2015 Inactive levothyroxine 25 mcg Tab RxNorm: 557405 1 Tablet(s) PO daily No Start Date 10/18/2011 Inactive Zithromax Z-Babak 250 mg tablet RxNorm: 960906 Tablet(s) PO UD No Start Date 04/01/2012 Inactive Januvia 100 mg tablet RxNorm: 849115 1 Tablet(s) PO daily No Start Date 05/22/2013 Inactive Lantus Solostar 100 unit/mL (3 mL) subcutaneous insulin pen RxNorm: 568293 Unit( s) SQ No Start Date 04/17/2017 Inactive 10 units q am and 50units at night fluconazole 150 mg tablet RxNorm: 711824 1 Tablet(s) PO every other day x 5 doses No Start Date 09/11/2012 Inactive Toprol XL 25 mg 24 hr Tab RxNorm: 870277 1 Tablet(s) PO daily No Start Date 11/16/2011 Inactive Medication Administered Medication Codes Instructions Start Date Status Kenalog 40 mg/mL suspension for injection RxNorm: 5437927 Milliliter 06/26/2015 No longer Active Kenalog 40 mg/mL suspension for injection RxNorm: 1887688 Milliliter 05/07/2013 No longer Active Kenalog 40 mg/mL Susp for Injection RxNorm: 7980656 1Milliliter 07/06/2012 No longer Active Pneumovax 23 25 mcg/0.5 mL Injection RxNorm: 190300 1/2Milliliter 06/07/2012 No longer Active Kenalog 40 mg/mL Susp for Injection RxNorm: 1218477 1Milliliter 05/02/2012 No longer Active Phenergan 25 mg/mL Injection RxNorm: 770987 Milliliter 11/30/2011 No longer Active Immunizations Vaccine Codes Date Status Pneumococcal (Adult) CVX: 133 02/26/2016 completed PPD Unknown 12/25/2014 completed PPD Unknown 09/27/2013 completed Pneumococcal CVX: 33 06/07/2012 completed Pneumococcal (Adult) CVX: 33 06/07/2012 completed Assessments Condition Codes Effective Dates Type 2 diabetes mellitus with hyperglycemia ICD-10: E11.65 ICD-9: 250.00 03/12/2018 Low back pain ICD-10: M54.5 ICD-9: 724.2 03/12/2018 Generalized anxiety disorder ICD-10: F41.1 ICD-9: 300.02 03/12/2018 Essential (primary) hypertension ICD-10: I10 ICD-9: 401.1 03/12/2018 Anemia, unspecified ICD-10: D64.9 ICD-9: 285.9 [...] right shoulder ICD-10: M25.511 ICD-9: 719.41 01/30/2017 Hypothyroidism, unspecified ICD-10: E03.9 ICD-9: 244.9 01/16/2017 Restless legs syndrome ICD-10: G25.81 ICD-9: 333.94 01/16/2017 Obstructive sleep apnea (adult) (pediatric) ICD-10: G47.33 ICD-9: 327.23 01/16/2017 Diplopia ICD-10: H53.2 ICD-9: 368.2 12/13/2016 Other acute sinusitis ICD-10: J01.80 ICD-9: 461.8 12/13/2016 Other obesity due to excess calories ICD-10: E66.09 ICD-9: 278.00 11/11/2016 Fasciculation ICD-10: R25.3 ICD-9: 781.0 11/11/2016 Unilateral primary osteoarthritis, right knee ICD-10: M17.11 ICD-9: 715.96 11/11/2016 Zoster without complications ICD-10: B02.9 ICD-9: [...] ICD-9: 782.1 01/15/2015 EDEMA ICD-9: 782.3 01/15/2015 DIABETES TYPE II ICD-9: 250.00 2014 Cellulitis, leg ICD-9: 682.6 01/01/2015 CVA (cerebral vascular accident) ICD-9: 434.91 12/25/2014 [...] Nausea vomiting and diarrhea ICD-9: 787.01 11/30/2011 ANXIETY STATE ICD-9: 300.00 11/03/2011 Tachycardia ICD-9: 785.0 11/03/2011 FALL AGAINST OBJECT ICD-9: E888.1 2011 Chronic depression ICD-9: 311 11/03/2011 Ulcer of [...] Ucult Complete NO Growth Day 2 02/22/2018 Ferritin Ord22 FERRITIN 14.9 ng/mL 02/21/2018 Tibc Ord40 Iron 62 ug/dl 02/21/2018 Tibc Ord40 UIBC 449 ug/dL 02/21/2018 Tibc Ord40 TIBC 511 ug/dL 02/21/2018 Tibc Ord40 Fe-%Sat 12.1 % 02/21/2018 Cbc With Differential Ord2 WBC 8.62 [...] 26.2 pg 02/20/2018 Cbc With Differential Ord2 [place]% 5.7 % 02/20/2018 Cbc With Differential Ord2 [...] 1.61 K/ul 02/20/2018 Cbc With Differential Ord2 [place] ABS# 0.5 K/ul 02/20/2018 Cbc With Differential Ord2 Eos ABS# 0.1 K/ul 02/20/2018 Cbc With Differential Ord2 Baso ABS# 0.0 K/ul 02/20/2018 Vitamin D 25 Oh [id number] VITAMIN D, 25 HYDROXY 26.48 ng/mL Digoxin Ord9 DIGOXIN 0.7 NG/ML 02/20/2018 Comp Metabolic Baq177 NA 134 mEq/L 02/20/2018 Comp Metabolic Dgu478 K 3.9 mEq/L 02/20/2018 Comp Metabolic Mxe785 CL 90 mEq/L 02/20/2018 Comp Metabolic Boo481 CO2 32.0 mEq/L 02/20/2018 Comp Metabolic Lmb857 ANION GAP 16 02/20/2018 Comp Metabolic Zgo811 GLUCOSE 287 mg/dL 02/20/2018 Comp Metabolic Iag146 Creat 0.8 mg/dL 02/20/2018 Comp Metabolic Bsq906 eGFR 72 ml/min/1.73m2 02/20/2018 Comp Metabolic Ufp302 BUN 13 mg/dL 02/20/2018 Comp Metabolic Zku910 B/C Ratio 15.5 Ratio 02/20/2018 Comp Metabolic Mas329 CALCIUM 9.0 mg/dL 02/20/2018 Comp Metabolic Dkv245 ALK PHOS 120 U/L 02/20/2018 Comp Metabolic Ste637 AST(SGOT) 21 U/L 02/20/2018 Comp Metabolic Wmv741 ALT(SGPT) 17 U/L 02/20/2018 Comp Metabolic Lxj371 BILI T 0.4 mg/dL 02/20/2018 Comp Metabolic Uyo220 ALBUMIN 3.8 g/dL 02/20/2018 Comp Metabolic Xkz584 TPRO 6.9 g/dL 02/20/2018 Comp Metabolic Hnd159 GLOB 3.1 g/dL 02/20/2018 Comp Metabolic Rtp592 A/G Ratio 1.3 Ratio 02/20/2018 Comp Metabolic Rlt873 Osmo 279 mOsmo 02/20/2018 Culture Urine [id number] URINE CULTURE SEE NOTES 12/01/2017 Urine Culture Ucult Complete >100,000 col/ml aerobic growth sent to ref lab 11/29/2017 Comp Metabolic Zst004 NA 135 mEq/L 08/21/2017 Comp Metabolic Qrh592 K 4.6 mEq/L 08/21/2017 Comp Metabolic Qzb116 CL 92 mEq/L 08/21/2017 Comp Metabolic Zhv516 CO2 32.0 mEq/L 08/21/2017 Comp Metabolic Dhg538 ANION GAP 16 08/21/2017 Comp Metabolic Mrs622 GLUCOSE 298 mg/dL 08/21/2017 Comp Metabolic Cql977 Creat 1.1 mg/dL 08/21/2017 Comp Metabolic Ubc216 eGFR 54 ml/min/1.73m2 08/21/2017 Comp Metabolic Jae612 BUN 22 mg/dL 08/21/2017 Comp Metabolic Dhy574 B/C Ratio 20.6 Ratio 08/21/2017 Comp Metabolic Vfv441 CALCIUM 9.3 mg/dL 08/21/2017 Comp Metabolic Wnm351 ALK PHOS 145 U/L 08/21/2017 Comp Metabolic Zey569 AST(SGOT) 31 U/L 08/21/2017 Comp Metabolic Mci683 ALT(SGPT) 19 U/L 08/21/2017 Comp Metabolic Mqm616 BILI T 0.3 mg/dL 08/21/2017 Comp Metabolic Uby955 ALBUMIN 3.8 g/dL 08/21/2017 Comp Metabolic Dik445 TPRO 7.1 g/dL 08/21/2017 Comp Metabolic Wti778 GLOB 3.3 g/dL 08/21/2017 Comp Metabolic Pyr975 A/G Ratio 1.2 Ratio 08/21/2017 Comp Metabolic Tfi775 Osmo 285 mOsmo 08/21/2017 Cbc With Differential [...] 27.9 pg 08/18/2017 Cbc With Differential Ord2 [place]% 6.9 % 08/18/2017 Cbc With Differential Ord2 [...] 2.05 K/ul 08/18/2017 Cbc With Differential Ord2 [place] ABS# 0.7 K/ul 08/18/2017 Cbc With Differential Ord2 Eos ABS# 0.3 K/ul 08/18/2017 Cbc With Differential Ord2 Baso ABS# 0.0 K/ul 08/18/2017 %Hba1C Fpt970 % HbA1c 25448-0 11.5 % 06/13/2017 %Hba1C Pqb283 Gluc Ave 283 mg/dL 06/13/2017 Digoxin Ord9 DIGOXIN 0.5 NG/ML 03/27/2017 Comp Metabolic Psc976 NA 136 mEq/L 03/27/2017 Comp Metabolic Sug142 K 4.1 mEq/L 03/27/2017 Comp Metabolic Lip675 CL 90 mEq/L 03/27/2017 Comp Metabolic Dsg017 CO2 34.0 mEq/L 03/27/2017 Comp Metabolic Pmr232 ANION GAP 16 03/27/2017 Comp Metabolic Wkr067 GLUCOSE 325 mg/dL 03/27/2017 Comp Metabolic Zdr929 Creat 1.0 mg/dL 03/27/2017 Comp Metabolic Kxx196 eGFR 62 ml/min/1.73m2 03/27/2017 Comp Metabolic Sww421 BUN 15 mg/dL 03/27/2017 Comp Metabolic Mom630 B/C Ratio 15.8 Ratio 03/27/2017 Comp Metabolic Ljy160 CALCIUM 9.5 mg/dL 03/27/2017 Comp Metabolic Ogo927 ALK PHOS 159 U/L 03/27/2017 Comp Metabolic Mkj750 AST(SGOT) 57 U/L 03/27/2017 Comp Metabolic Mgg797 ALT(SGPT) 32 U/L 03/27/2017 Comp Metabolic Tiz962 BILI T 0.4 mg/dL 03/27/2017 Comp Metabolic Tkc552 ALBUMIN 4.3 g/dL 03/27/2017 Comp Metabolic Jgd903 TPRO 7.3 g/dL 03/27/2017 Comp Metabolic Cyh545 GLOB 3.0 g/dL 03/27/2017 Comp Metabolic Laa272 A/G Ratio 1.4 Ratio 03/27/2017 Comp Metabolic Cem665 Osmo 285 mOsmo 03/27/2017 Cbc With Differential Ord2 WBC 10.57 K/ul 03/27/2017 Cbc With Differential Ord2 RBC 4.31 M/ul 03/27/2017 Cbc With Differential Ord2 HGB 11.9 g/dl 03/27/2017 Cbc With Differential Ord2 Neut% 70.7 % 03/27/2017 Cbc With Differential Ord2 HCT 38.6 % 03/27/2017 Cbc With Differential Ord2 MCV 89.6 fl 03/27/2017 Cbc With Differential Ord2 Lymph% 20.0 % 03/27/2017 Cbc With Differential Ord2 MCH 27.6 pg 03/27/2017 Cbc With Differential Ord2 [place]% 7.2 % 03/27/2017 Cbc With Differential Ord2 MCHC 30.8 pg 03/27/2017 Cbc With Differential Ord2 Eos% 1.7 % 03/27/2017 Cbc With Differential Ord2 Baso% 0.4 % 03/27/2017 Cbc With Differential Ord2 PLT 365 K/ul 03/27/2017 Cbc With Differential Ord2 RDW 14.9 % 03/27/2017 Cbc With Differential Ord2 Neut ABS# 7.48 K/ul 03/27/2017 Cbc With Differential Ord2 Lymph ABS# 2.11 K/ul 03/27/2017 Cbc With Differential Ord2 [place] ABS# 0.8 K/ul 03/27/2017 Cbc With Differential Ord2 Eos ABS# 0.2 K/ul 03/27/2017 Cbc With Differential Ord2 Baso ABS# 0.0 K/ul 03/27/2017 Comp Metabolic Wlw819 NA 138 mEq/L 02/27/2017 Comp Metabolic Yxh725 K 4.2 mEq/L 02/27/2017 Comp Metabolic Sea237 CL 91 mEq/L 02/27/2017 Comp Metabolic Job355 CO2 36.0 mEq/L 02/27/2017 Comp Metabolic Txk197 ANION GAP 15 02/27/2017 Comp Metabolic Iwr841 GLUCOSE 297 mg/dL 02/27/2017 Comp Metabolic Wff137 Creat 0.9 mg/dL 02/27/2017 Comp Metabolic Aka092 eGFR 71 ml/min/1.73m2 02/27/2017 Comp Metabolic Bfm340 BUN 12 mg/dL 02/27/2017 Comp Metabolic Sjo689 B/C Ratio 14.1 Ratio 02/27/2017 Comp Metabolic Ofy948 CALCIUM 9.0 mg/dL 02/27/2017 Comp Metabolic Plf351 ALK PHOS 146 U/L 02/27/2017 Comp Metabolic Xfm045 AST(SGOT) 28 U/L 02/27/2017 Comp Metabolic Ovp162 ALT(SGPT) 12 U/L 02/27/2017 Comp Metabolic Wzs105 BILI T 0.3 mg/dL 02/27/2017 Comp Metabolic Dap970 ALBUMIN 3.8 g/dL 02/27/2017 Comp Metabolic Sqo660 TPRO 6.6 g/dL 02/27/2017 Comp Metabolic Pkt074 GLOB 2.8 g/dL 02/27/2017 Comp Metabolic Nwp600 A/G Ratio 1.3 Ratio 02/27/2017 Comp Metabolic Xtc303 Osmo 286 mOsmo 02/27/2017 Magnesium Ord90 Mag 2.4 mg/dL 02/27/2017 Comp Metabolic Muj596 NA 138 mEq/L 02/14/2017 Comp Metabolic Eqh622 K 3.5 mEq/L 02/14/2017 Comp Metabolic Ngd385 CL 95 mEq/L 02/14/2017 Comp Metabolic Zic005 CO2 29.0 mEq/L 02/14/2017 Comp Metabolic Dqn171 ANION GAP 18 02/14/2017 Comp Metabolic Xrz004 GLUCOSE 254 mg/dL 02/14/2017 Comp Metabolic Vzj074 Creat 1.0 mg/dL 02/14/2017 Comp Metabolic Xzv013 eGFR 62 ml/min/1.73m2 02/14/2017 Comp Metabolic Nwq639 BUN 14 mg/dL 02/14/2017 Comp Metabolic Wrz253 B/C Ratio 14.6 Ratio 02/14/2017 Comp Metabolic Vub937 CALCIUM 8.6 mg/dL 02/14/2017 Comp Metabolic Gso686 ALK PHOS 155 U/L 02/14/2017 Comp Metabolic Xjn775 AST(SGOT) 42 U/L 02/14/2017 Comp Metabolic Euq478 ALT(SGPT) 28 U/L 02/14/2017 Comp Metabolic Sjq215 BILI T 0.3 mg/dL 02/14/2017 Comp Metabolic Hdg513 ALBUMIN 3.6 g/dL 02/14/2017 Comp Metabolic Esa534 TPRO 6.2 g/dL 02/14/2017 Comp Metabolic Hds720 GLOB 2.6 g/dL 02/14/2017 Comp Metabolic Las057 A/G Ratio 1.4 Ratio 02/14/2017 Comp Metabolic Qpr760 Osmo 285 mOsmo 02/14/2017 Digoxin Ord9 DIGOXIN <0.2 NG/ML 02/14/2017 %Hba1C Zho706 % HbA1c 54074-8 12.4 % 01/16/2017 %Hba1C Unn028 Gluc Ave 309 mg/dL 01/16/2017 Vitamin D 25 Oh Wnr8846 VITAMIN D, 25 HYDROXY 8.99 ng/mL Tsh Ord6 hTSH II 3.30 uIU/mL 01/16/2017 Sed Rate Ord21 ESR 33 mm/hr 01/16/2017 C-Reactive Protein Qnt Crqnt CRP 3.3 mg/dl 01/16/2017 Free T4 Mjx788 FREE T4 0.81 ng/dL 01/16/2017 Comp Metabolic Sbq061 NA 134 mEq/L 01/16/2017 Comp Metabolic Pqq622 K 4.0 mEq/L 01/16/2017 Comp Metabolic Cod828 CL 89 mEq/L 01/16/2017 Comp Metabolic Eid396 CO2 30.0 mEq/L 01/16/2017 Comp Metabolic Yfl329 ANION GAP 19 01/16/2017 Comp Metabolic Sne181 GLUCOSE 496 Result Verified By Repeat Analysis mg/dL 01/16/2017 Comp Metabolic Dmj932 Creat 0.8 mg/dL 01/16/2017 Comp Metabolic Xby587 eGFR 73 ml/min/1.73m2 01/16/2017 Comp Metabolic Udq610 BUN 13 mg/dL 01/16/2017 Comp Metabolic Ifl658 B/C Ratio 15.7 Ratio 01/16/2017 Comp Metabolic Dby965 CALCIUM 8.8 mg/dL 01/16/2017 Comp Metabolic Pgk661 ALK PHOS 171 U/L 01/16/2017 Comp Metabolic Jod630 AST(SGOT) 54 U/L 01/16/2017 Comp Metabolic Pza770 ALT(SGPT) 32 U/L 01/16/2017 Comp Metabolic Zhk259 BILI T 0.3 mg/dL 01/16/2017 Comp Metabolic Idt157 ALBUMIN 3.9 g/dL 01/16/2017 Comp Metabolic Mev001 TPRO 6.5 g/dL 01/16/2017 Comp Metabolic Xhl954 GLOB 2.6 g/dL 01/16/2017 Comp Metabolic Prk790 A/G Ratio 1.5 Ratio 01/16/2017 Comp Metabolic Evt665 Osmo 290 mOsmo 01/16/2017 Cbc With Differential Ord2 WBC 8.12 K/ul 01/16/2017 Cbc With Differential Ord2 RBC 4.32 M/ul 01/16/2017 Cbc With Differential Ord2 HGB 12.1 g/dl 01/16/2017 Cbc With Differential Ord2 Neut% 73.2 % 01/16/2017 Cbc With Differential Ord2 HCT 38.7 % 01/16/2017 Cbc With Differential Ord2 Lymph% 17.5 % 01/16/2017 Cbc With Differential Ord2 MCV 89.6 fl 01/16/2017 Cbc With Differential Ord2 [place]% 7.3 % 01/16/2017 Cbc With Differential Ord2 MCH 28.0 pg 01/16/2017 Cbc With Differential Ord2 Eos% 1.6 % 01/16/2017 Cbc With Differential Ord2 MCHC 31.3 pg 01/16/2017 Cbc With Differential Ord2 Baso% 0.4 % 01/16/2017 Cbc With Differential Ord2 PLT 344 K/ul 01/16/2017 Cbc With Differential Ord2 RDW 14.2 % 01/16/2017 Cbc With Differential Ord2 Neut ABS# 5.95 K/ul 01/16/2017 Cbc With Differential Ord2 Lymph ABS# 1.42 K/ul 01/16/2017 Cbc With Differential Ord2 [place] ABS# 0.6 K/ul 01/16/2017 Cbc With Differential Ord2 Eos ABS# 0.1 K/ul 01/16/2017 Cbc With Differential Ord2 Baso ABS# 0.0 K/ul 01/16/2017 Manual Differential Ord52 D-Neutr 62 % 09/14/2016 Manual Differential Ord52 D-Lymph 34 % 09/14/2016 Manual Differential Ord52 D-[place] 1 % 09/14/2016 Manual Differential Ord52 D-Eos 2 % 09/14/2016 Manual Differential Ord52 D-[place] 1 % 09/14/2016 %Hba1C Sgl489 % HbA1c 80458-6 10.7 % 09/14/2016 %Hba1C Iow927 Gluc Ave 260 mg/dL 09/14/2016 Comp Metabolic Ule432 NA 135 mEq/L 09/14/2016 Comp Metabolic Rnm054 K 5.2 mEq/L 09/14/2016 Comp Metabolic Obz673 CL 93 mEq/L 09/14/2016 Comp Metabolic Bfs303 CO2 26.0 mEq/L 09/14/2016 Comp Metabolic Ntp753 ANION GAP 21 09/14/2016 Comp Metabolic Xkn400 GLUCOSE 326 mg/dL 09/14/2016 Comp Metabolic Kqj214 Creat 1.0 mg/dL 09/14/2016 Comp Metabolic Yus874 eGFR 57 ml/min/1.73m2 09/14/2016 Comp Metabolic Ocj703 BUN 16 mg/dL 09/14/2016 Comp Metabolic Sdz264 B/C Ratio 15.5 Ratio 09/14/2016 Comp Metabolic Aet349 CALCIUM 9.2 mg/dL 09/14/2016 Comp Metabolic Vzj595 ALK PHOS 160 U/L 09/14/2016 Comp Metabolic Vtn019 AST(SGOT) 49 U/L 09/14/2016 Comp Metabolic Ber360 ALT(SGPT) 32 U/L 09/14/2016 Comp Metabolic Lco920 BILI T 0.4 mg/dL 09/14/2016 Comp Metabolic Sma024 ALBUMIN 4.0 g/dL 09/14/2016 Comp Metabolic Nyi242 TPRO 7.3 g/dL 09/14/2016 Comp Metabolic Zgo658 GLOB 3.3 g/dL 09/14/2016 Comp Metabolic Cnn364 A/G Ratio 1.2 Ratio 09/14/2016 Comp Metabolic Bhq612 Osmo 284 mOsmo 09/14/2016 Cbc With Differential [...] 28.2 pg 09/14/2016 Cbc With Differential Ord2 [place]% 6.2 % 09/14/2016 Cbc With Differential Ord2 Eos% 1.8 % 09/14/2016 Cbc With Differential Ord2 MCHC 32.4 pg 09/14/2016 Cbc With Differential Ord2 PLT 297 K/ul 09/14/2016 Cbc With Differential Ord2 Baso% 2.6 % 09/14/2016 Cbc With Differential Ord2 Neut ABS# 7.37 K/ul 09/14/2016 Cbc With Differential Ord2 RDW 16.8 % 09/14/2016 Cbc With Differential Ord2 Lymph ABS# 2.09 K/ul 09/14/2016 Cbc With Differential Ord2 [place] ABS# 0.7 K/ul 09/14/2016 Cbc With Differential Ord2 Eos ABS# 0.2 K/ul 09/14/2016 Cbc With Differential Ord2 Baso ABS# 0.3 K/ul 09/14/2016 Comp Metabolic Qeb446 NA 134 mEq/L 08/10/2016 Comp Metabolic Nlq208 K 5.0 mEq/L 08/10/2016 Comp Metabolic Czb917 CL 91 mEq/L 08/10/2016 Comp Metabolic Biw726 CO2 29.0 mEq/L 08/10/2016 Comp Metabolic Dhq642 ANION GAP 19 08/10/2016 Comp Metabolic Cya745 GLUCOSE 291 mg/dL 08/10/2016 Comp Metabolic Rto609 Creat 0.9 mg/dL 08/10/2016 Comp Metabolic Eim463 eGFR 68 ml/min/1.73m2 08/10/2016 Comp Metabolic Gxj353 BUN 20 mg/dL 08/10/2016 Comp Metabolic Ntp922 B/C Ratio 22.7 Ratio 08/10/2016 Comp Metabolic Hay619 CALCIUM 9.7 mg/dL 08/10/2016 Comp Metabolic Tkj565 ALK PHOS 144 U/L 08/10/2016 Comp Metabolic Ade016 AST(SGOT) 62 U/L 08/10/2016 Comp Metabolic Bjk105 ALT(SGPT) 37 U/L 08/10/2016 Comp Metabolic Rmh762 BILI T 0.3 mg/dL 08/10/2016 Comp Metabolic Ofp456 ALBUMIN 4.3 g/dL 08/10/2016 Comp Metabolic Kec474 TPRO 7.3 g/dL 08/10/2016 Comp Metabolic Csj576 GLOB 3.0 g/dL 08/10/2016 Comp Metabolic Lft205 A/G Ratio 1.5 Ratio 08/10/2016 Comp Metabolic Ydb458 Osmo 282 mOsmo 08/10/2016 Free T4 Ban377 FREE T4 0.89 ng/dL 08/09/2016 Cbc With Differential Ord2 WBC 13.89 K/ul 08/09/2016 Cbc With Differential Ord2 RBC 5.05 M/ul 08/09/2016 Cbc With Differential Ord2 HGB 13.7 g/dl 08/09/2016 Cbc With Differential Ord2 HCT 43.7 % 08/09/2016 Cbc With Differential Ord2 Neut% 75.8 % 08/09/2016 Cbc With Differential Ord2 Lymph% 17.7 % 08/09/2016 Cbc With Differential Ord2 MCV 86.5 fl 08/09/2016 Cbc With Differential Ord2 MCH 27.1 pg 08/09/2016 Cbc With Differential Ord2 [place]% 5.4 % 08/09/2016 Cbc With Differential Ord2 [...] 2.46 K/ul 08/09/2016 Cbc With Differential Ord2 [place] ABS# 0.8 K/ul 08/09/2016 Cbc With Differential Ord2 Eos ABS# 0.1 K/ul 08/09/2016 Cbc With Differential Ord2 Baso ABS# 0.0 K/ul 08/09/2016 Tsh Ord6 hTSH II 4.06 uIU/mL 08/09/2016 Cbc With Differential Ord2 WBC 10.00 K/ul 04/20/2016 Cbc With Differential Ord2 RBC 4.43 M/ul 04/20/2016 Cbc With Differential Ord2 HGB 12.1 g/dl 04/20/2016 Cbc With Differential Ord2 Neut% 65.2 % 04/20/2016 Cbc With Differential Ord2 HCT 38.7 % 04/20/2016 Cbc With Differential Ord2 Lymph% 26.3 % 04/20/2016 Cbc With Differential Ord2 MCV 87.4 fl 04/20/2016 Cbc With Differential Ord2 [place]% 6.3 % 04/20/2016 Cbc With Differential Ord2 [...] 2.63 K/ul 04/20/2016 Cbc With Differential Ord2 [place] ABS# 0.6 K/ul 04/20/2016 Cbc With Differential Ord2 Eos ABS# 0.2 K/ul 04/20/2016 Cbc With Differential Ord2 Baso ABS# 0.0 K/ul 04/20/2016 Cbc With Differential Ord2 WBC 9.53 K/ul 04/11/2016 Cbc With Differential Ord2 RBC 4.42 M/ul 04/11/2016 Cbc With Differential Ord2 HGB 12.2 g/dl 04/11/2016 Cbc With Differential Ord2 Neut% 68.8 % 04/11/2016 Cbc With Differential Ord2 HCT 39.3 % 04/11/2016 Cbc With Differential Ord2 MCV 88.9 fl 04/11/2016 Cbc With Differential Ord2 Lymph% 21.9 % 04/11/2016 Cbc With Differential Ord2 [place]% 6.9 % 04/11/2016 Cbc With Differential Ord2 [...] 2.09 K/ul 04/11/2016 Cbc With Differential Ord2 [place] ABS# 0.7 K/ul 04/11/2016 Cbc With Differential Ord2 Eos ABS# 0.2 K/ul 04/11/2016 Cbc With Differential Ord2 Baso ABS# 0.0 K/ul 04/11/2016 Comp Metabolic Avr974 NA 133 mEq/L 04/11/2016 Comp Metabolic Zis218 K 4.1 mEq/L 04/11/2016 Comp Metabolic Msk789 CL 92 mEq/L 04/11/2016 Comp Metabolic Lgf980 CO2 30.0 mEq/L 04/11/2016 Comp Metabolic Lds630 ANION GAP 15 04/11/2016 Comp Metabolic Kam951 GLUCOSE 414 mg/dL 04/11/2016 Comp Metabolic Jrs436 Creat 0.9 mg/dL 04/11/2016 Comp Metabolic Hja019 eGFR 65 ml/min/1.73m2 04/11/2016 Comp Metabolic Ccn271 BUN 22 mg/dL 04/11/2016 Comp Metabolic Kog852 B/C Ratio 23.9 Ratio 04/11/2016 Comp Metabolic Zmi997 CALCIUM 9.2 mg/dL 04/11/2016 Comp Metabolic Xnb667 ALK PHOS 145 U/L 04/11/2016 Comp Metabolic Yid991 AST(SGOT) 22 U/L 04/11/2016 Comp Metabolic Oud314 ALT(SGPT) 21 U/L 04/11/2016 Comp Metabolic Bwj026 BILI T 0.3 mg/dL 04/11/2016 Comp Metabolic Jmn109 ALBUMIN 3.9 g/dL 04/11/2016 Comp Metabolic Tzw455 TPRO 6.8 g/dL 04/11/2016 Comp Metabolic Czd132 GLOB 3.0 g/dL 04/11/2016 Comp Metabolic Btl516 A/G Ratio 1.3 Ratio 04/11/2016 Comp Metabolic Xub045 Osmo 287 mOsmo 04/11/2016 %Hba1C Hoj823 % HbA1c 99162-3 9.6 % 02/26/2016 %Hba1C Hdj535 Gluc Ave 229 mg/dL 02/26/2016 Cbc With Differential Ord2 WBC 12.43 K/ul 02/26/2016 Cbc With Differential Ord2 RBC 4.06 M/ul 02/26/2016 Cbc With Differential Ord2 HGB 12.0 g/dl 02/26/2016 Cbc With Differential Ord2 Neut% 69.4 % 02/26/2016 Cbc With Differential Ord2 HCT 38.4 % 02/26/2016 Cbc With Differential Ord2 MCV 94.6 fl 02/26/2016 Cbc With Differential Ord2 Lymph% 22.4 % 02/26/2016 Cbc With Differential Ord2 [place]% 6.4 % 02/26/2016 Cbc With Differential Ord2 [...] 2.78 K/ul 02/26/2016 Cbc With Differential Ord2 [place] ABS# 0.8 K/ul 02/26/2016 Cbc With Differential Ord2 Eos ABS# 0.2 K/ul 02/26/2016 Cbc With Differential Ord2 Baso ABS# 0.1 K/ul 02/26/2016 Comp Metabolic Owk886 NA 136 mEq/L 02/26/2016 Comp Metabolic Fvj822 K 3.9 mEq/L 02/26/2016 Comp Metabolic Rfx959 CL 95 mEq/L 02/26/2016 Comp Metabolic Yxy439 CO2 29.0 mEq/L 02/26/2016 Comp Metabolic Sbc720 ANION GAP 16 02/26/2016 Comp Metabolic Yyj090 GLUCOSE 277 mg/dL 02/26/2016 Comp Metabolic Zme621 Creat 0.7 mg/dL 02/26/2016 Comp Metabolic Cdv379 eGFR 88 ml/min/1.73m2 02/26/2016 Comp Metabolic Fms324 BUN 11 mg/dL 02/26/2016 Comp Metabolic Cfa927 B/C Ratio 15.5 Ratio 02/26/2016 Comp Metabolic Rud295 CALCIUM 8.8 mg/dL 02/26/2016 Comp Metabolic Gqd228 ALK PHOS 119 U/L 02/26/2016 Comp Metabolic Jfe199 AST(SGOT) 25 U/L 02/26/2016 Comp Metabolic Qoq160 ALT(SGPT) 20 U/L 02/26/2016 Comp Metabolic Ebp685 BILI T 0.3 mg/dL 02/26/2016 Comp Metabolic Uya784 ALBUMIN 3.8 g/dL 02/26/2016 Comp Metabolic Sib055 TPRO 6.6 g/dL 02/26/2016 Comp Metabolic Mdx930 GLOB 2.8 g/dL 02/26/2016 Comp Metabolic Rqm402 A/G Ratio 1.3 Ratio 02/26/2016 Comp Metabolic Ahg175 Osmo 281 mOsmo 02/26/2016 Comp Metabolic Uvm144 NA 138 mEq/L 11/10/2015 Comp Metabolic Gti917 K 4.5 mEq/L 11/10/2015 Comp Metabolic Gbw466 CL 99 mEq/L 11/10/2015 Comp Metabolic Phk163 CO2 34.0 mEq/L 11/10/2015 Comp Metabolic Gzw345 ANION GAP 10 11/10/2015 Comp Metabolic Eeo919 GLUCOSE 167 mg/dL 11/10/2015 Comp Metabolic Wlu536 Creat 0.8 mg/dL 11/10/2015 Comp Metabolic Txs895 eGFR 78 ml/min/1.73m2 11/10/2015 Comp Metabolic Psy791 BUN 22 mg/dL 11/10/2015 Comp Metabolic Mca267 B/C Ratio 27.8 Ratio 11/10/2015 Comp Metabolic Xui458 CALCIUM 8.5 mg/dL 11/10/2015 Comp Metabolic Gcz796 ALK PHOS 130 U/L 11/10/2015 Comp Metabolic Fgi324 AST(SGOT) 56 U/L 11/10/2015 Comp Metabolic Bxz564 ALT(SGPT) 51 U/L 11/10/2015 Comp Metabolic Byg807 BILI T 0.5 mg/dL 11/10/2015 Comp Metabolic Fhe936 ALBUMIN 3.5 g/dL 11/10/2015 Comp Metabolic Oil755 TPRO 5.8 g/dL 11/10/2015 Comp Metabolic Fmq419 GLOB 2.3 g/dL 11/10/2015 Comp Metabolic Qwb798 A/G Ratio 1.5 Ratio 11/10/2015 Comp Metabolic Dvv672 Osmo 283 mOsmo 11/10/2015 Cbc With Differential [...] 17.2 % 11/10/2015 Cbc With Differential Ord2 [place]% 7.7 % 11/10/2015 Cbc With Differential Ord2 MCH 28.0 pg 11/10/2015 Cbc With Differential Ord2 MCHC 30.1 pg 11/10/2015 Cbc With Differential Ord2 Eos% 1.1 % 11/10/2015 Cbc With Differential Ord2 Baso% 0.3 % 11/10/2015 Cbc With Differential Ord2 PLT 274 K/ul 11/10/2015 Cbc With Differential Ord2 RDW 16.8 % 11/10/2015 Cbc With Differential Ord2 Neut ABS# 8.21 K/ul 11/10/2015 Cbc With Differential Ord2 Lymph ABS# 1.92 K/ul 11/10/2015 Cbc With Differential Ord2 [place] ABS# 0.9 K/ul 11/10/2015 Cbc With Differential Ord2 Eos ABS# 0.1 K/ul 11/10/2015 Cbc With Differential Ord2 Baso ABS# 0.0 K/ul 11/10/2015 Tsh Ord6 hTSH II 3.53 uIU/mL 08/11/2015 Comp Metabolic Kyy292 NA 142 mEq/L 08/11/2015 Comp Metabolic Kih446 K 3.6 mEq/L 08/11/2015 Comp Metabolic Jfc651 CL 98 mEq/L 08/11/2015 Comp Metabolic Nlg644 CO2 33.0 mEq/L 08/11/2015 Comp Metabolic Tpo413 ANION GAP 15 08/11/2015 Comp Metabolic Ejz708 GLUCOSE 100 mg/dL 08/11/2015 Comp Metabolic Ngl461 Creat 0.9 mg/dL 08/11/2015 Comp Metabolic Zyg720 eGFR 65 ml/min/1.73m2 08/11/2015 Comp Metabolic Eck888 BUN 15 mg/dL 08/11/2015 Comp Metabolic Wlj090 B/C Ratio 16.3 Ratio 08/11/2015 Comp Metabolic Ahi410 CALCIUM 8.8 mg/dL 08/11/2015 Comp Metabolic Ejy749 ALK PHOS 171 U/L 08/11/2015 Comp Metabolic Sry553 AST(SGOT) 76 U/L 08/11/2015 Comp Metabolic Qns670 ALT(SGPT) 64 U/L 08/11/2015 Comp Metabolic Atu432 BILI T 0.4 mg/dL 08/11/2015 Comp Metabolic Wqn372 ALBUMIN 4.2 g/dL 08/11/2015 Comp Metabolic Zkv072 TPRO 6.7 g/dL 08/11/2015 Comp Metabolic Fyc445 GLOB 2.6 g/dL 08/11/2015 Comp Metabolic Xps520 A/G Ratio 1.6 Ratio 08/11/2015 Comp Metabolic Wfc786 Osmo 284 mOsmo 08/11/2015 Cbc With Differential Ord2 WBC 11.55 [...] 28.6 pg 08/11/2015 Cbc With Differential Ord2 [place]% 8.1 % 08/11/2015 Cbc With Differential Ord2 [...] 2.93 K/ul 08/11/2015 Cbc With Differential Ord2 [place] ABS# 0.9 K/ul 08/11/2015 Cbc With Differential Ord2 Eos ABS# 0.1 K/ul 08/11/2015 Cbc With Differential Ord2 Baso ABS# 0.0 K/ul 08/11/2015 Cbc With Differential Ord2 New Analyzer Notice Please note new ref ranges starting 06-03-2015 due to implemntation of new five part differential hematolgy analyzer. 08/11/2015 Free T4 Ivp577 FREE T4 1.07 ng/dL 08/11/2015 %Hba1C Mqw921 % HbA1c 99033-4 6.7 % 08/11/2015 %Hba1C Nqc989 Gluc Ave 146 mg/dL 08/11/2015 Culture Urine [id number] URINE CULTURE SEE NOTES 07/23/2015 Culture Urine [id number] Continued Results 07/23/2015 Urine Culture Ucult Complete Growth of aerobe sent to ref lab 07/21/2015 Free T4 Scw868 FREE T4 0.76 ng/dL 04/15/2015 Tsh Ord6 hTSH II 1.99 uIU/mL 04/15/2015 Cbc With Differential Ord2 WBC 9.6 K/uL [...] With Differential Ord2 RDW 16.5 % 04/14/2015 Comp Metabolic Biv848 NA 140 mEq/L 04/14/2015 Comp Metabolic Dpg206 K 4.4 mEq/L 04/14/2015 Comp Metabolic Qvn144 CL 99 mEq/L 04/14/2015 Comp Metabolic Xet893 CO2 29.0 mEq/L 04/14/2015 Comp Metabolic Wyu388 ANION GAP 16 04/14/2015 Comp Metabolic Ixb175 GLUCOSE 100 mg/dL 04/14/2015 Comp Metabolic Zdy162 Creat 0.7 mg/dL 04/14/2015 Comp Metabolic Huy928 eGFR 91 ml/min/1.73m2 04/14/2015 Comp Metabolic Ehl012 BUN 13 mg/dL 04/14/2015 Comp Metabolic Lnw305 B/C Ratio 18.8 Ratio 04/14/2015 Comp Metabolic Mbk434 CALCIUM 9.1 mg/dL 04/14/2015 Comp Metabolic Vaj512 ALK PHOS 138 U/L 04/14/2015 Comp Metabolic Yai535 AST(SGOT) 22 U/L 04/14/2015 Comp Metabolic Jsk822 ALT(SGPT) 22 U/L 04/14/2015 Comp Metabolic Xyz743 BILI T 0.3 mg/dL 04/14/2015 Comp Metabolic Hgm388 ALBUMIN 4.0 g/dL 04/14/2015 Comp Metabolic Cdu427 TPRO 6.5 g/dL 04/14/2015 Comp Metabolic Cfc933 GLOB 2.5 g/dL 04/14/2015 Comp Metabolic Hhh256 A/G Ratio 1.6 Ratio 04/14/2015 Comp Metabolic Mha086 Osmo 280 mOsmo 04/14/2015 %Hba1C Mxz601 % HbA1c 13741-7 6.7 % 04/14/2015 %Hba1C Bgb623 Gluc Ave 146 mg/dL 04/14/2015 CHEM 14 7821944 AST 15 U/L 09/11/2013 CHEM 14 0699699 ALT 25 IU/L 09/11/2013 CHEM 14 3880369 BUN 29 MG/DL 09/11/2013 CHEM 14 3954534 ALBUMIN 3.8 GM/DL 09/11/2013 CHEM 14 9514918 CHLORIDE 99 MMOL/L 09/11/2013 CHEM 14 8763680 BILI TOT 0.2 MG/DL 09/11/2013 CHEM 14 0835639 ALK PHOS 118 U/L 09/11/2013 CHEM 14 9220556 SODIUM 136 MMOL/L 09/11/2013 CHEM 14 9518839 CREATININE 1.26 MG/DL 09/11/2013 CHEM 14 2970093 CALCIUM 9.0 MG/DL 09/11/2013 CHEM 14 7712152 POTASSIUM 5.0 MMOL/L 09/11/2013 CHEM 14 1885403 PROT TOT 6.2 GM/DL 09/11/2013 CHEM 14 7819060 GLUCOSE 254 MG/DL 09/11/2013 CHEM 14 4314912 BICARB 29 MMOL/L 09/11/2013 CHEM 14 4963124 ANION GAP 8 MEQ/L 09/11/2013 GFR CALC 2817445 GFR AA 52.0L ML/MIN 09/11/2013 GFR CALC 6548997 GFR NON-AA 43.0L ML/MIN 09/11/2013 FREE T4 1913264 FREE T4 1.35 NG/DL 08/02/2013 CBC 1320616 WBC 7.5 10e9/L 08/01/2013 CBC 9948068 RBC 3.88 10e12/L 08/01/2013 CBC 2680117 HGB 12.1 g/dL 08/01/2013 CBC 0890433 HCT DET 37.6 % 08/01/2013 CBC 5949582 MCV 96.9 fL 08/01/2013 CBC 7737778 MCH 31.2 pg 08/01/2013 CBC 1992946 MCHC 32.2 g/dL 08/01/2013 CBC 5819640 PLT 289 10e9/L 08/01/2013 CBC 8138403 MPV 9.6 fL 08/01/2013 CBC 1847525 JOSEFIN[place] % 56.0 % 08/01/2013 CBC 9201089 LY % 31.6 % 08/01/2013 CBC 0712590 MON % 10.0 % 08/01/2013 CBC 7989299 EOS % 1.7 % 08/01/2013 CBC 2304137 BASO % 0.7 % 08/01/2013 CBC 5516948 RDW 15.5 % 08/01/2013 CBC 6138222 ABS JOSEFINA 4.20 10e9/L 08/01/2013 CBC 7264354 ABS LYMPH 2.37 10e9/L 08/01/2013 CBC 6079935 ABS MONO 0.75 10e9/L 08/01/2013 CBC 6114658 ABS EOS 0.13 10e9/L 08/01/2013 CBC 2397422 ABS BASO 0.05 10e9/L 08/01/2013 CBC 7003717 RDW-SD 53.5 fL 08/01/2013 TSH 2057255 TSH 6.497 uIU/ML 08/01/2013 A1C HPLC 4576209 A1C HPLC 72932-3 8.1 % 08/01/2013 GFR CALC 7469330 GFR AA >60 ML/MIN 08/01/2013 GFR CALC 0416795 GFR NON-AA >60 ML/MIN 08/01/2013 CHEM 14 2893294 AST 53 U/L 08/01/2013 CHEM 14 5140382 ALT 36 IU/L 08/01/2013 CHEM 14 2553856 BUN 16 MG/DL 08/01/2013 CHEM 14 1796056 ALBUMIN 4.2 GM/DL 08/01/2013 CHEM 14 1589619 CHLORIDE 103 MMOL/L 08/01/2013 CHEM 14 8452754 BILI TOT 0.4 MG/DL 08/01/2013 CHEM 14 6122034 ALK PHOS 113 U/L 08/01/2013 CHEM 14 5523687 SODIUM 139 MMOL/L 08/01/2013 CHEM 14 3673467 CREATININE 0.83 MG/DL 08/01/2013 CHEM 14 4114522 CALCIUM 9.5 MG/DL 08/01/2013 CHEM 14 8373654 POTASSIUM 4.2 MMOL/L 08/01/2013 CHEM 14 4218916 PROT TOT 6.4 GM/DL 08/01/2013 CHEM 14 3632309 GLUCOSE 135 MG/DL 08/01/2013 CHEM 14 9709111 BICARB 26 MMOL/L 08/01/2013 CHEM 14 4158276 ANION GAP 10 MEQ/L 08/01/2013 CBC 0251993 WBC 10.4 10e9/L 03/21/2013 CBC 6078548 RBC 4.27 10e12/L 03/21/2013 CBC 8242085 HGB 13.1 g/dL 03/21/2013 CBC 1575334 HCT DET 41.2 % 03/21/2013 CBC 9572928 MCV 96.5 fL 03/21/2013 CBC 2223363 MCH 30.7 pg 03/21/2013 CBC 1213242 MCHC 31.8 g/dL 03/21/2013 CBC 5567362 PLT 398 10e9/L 03/21/2013 CBC 3666582 MPV 10.9 fL 03/21/2013 CBC 4789092 JO[place]FIN[place] % 65.4 % 03/21/2013 CBC 0010677 LY % 25.6 % 03/21/2013 CBC 3064584 MON % 6.7 % 03/21/2013 CBC 4623638 EOS % 1.9 % 03/21/2013 CBC 2218144 BASO % 0.4 % 03/21/2013 CBC 1023699 RDW 14.2 % 03/21/2013 CBC 2757173 ABS JOSEFINA 6.80 10e9/L 03/21/2013 CBC 0896091 ABS LYMPH 2.66 10e9/L 03/21/2013 CBC 5006714 ABS MONO 0.70 10e9/L 03/21/2013 CBC 6882103 ABS EOS 0.20 10e9/L 03/21/2013 CBC 1256876 ABS BASO 0.04 10e9/L 03/21/2013 CBC 6013335 RDW-SD 48.7 fL 03/21/2013 CHEM 14 8615548 AST 22 U/L 03/21/2013 CHEM 14 4051127 ALT 22 IU/L 03/21/2013 CHEM 14 9202674 BUN 29 MG/DL 03/21/2013 CHEM 14 3352576 ALBUMIN 4.1 GM/DL 03/21/2013 CHEM 14 2771533 CHLORIDE 99 MMOL/L 03/21/2013 CHEM 14 0630996 BILI TOT 0.3 MG/DL 03/21/2013 CHEM 14 8991626 ALK PHOS 123 U/L 03/21/2013 CHEM 14 9340248 SODIUM 137 MMOL/L 03/21/2013 CHEM 14 8099775 CREATININE 1.16 MG/DL 03/21/2013 CHEM 14 2211891 CALCIUM 9.1 MG/DL 03/21/2013 CHEM 14 7208261 POTASSIUM 4.1 MMOL/L 03/21/2013 CHEM 14 7013735 PROT TOT 6.7 GM/DL 03/21/2013 CHEM 14 1697271 GLUCOSE 209 MG/DL 03/21/2013 CHEM 14 9069880 BICARB 26 MMOL/L 03/21/2013 CHEM 14 4481508 ANION GAP 12 MEQ/L 03/21/2013 A1C HPLC 8634363 A1C HPLC 02712-2 6.6 % 03/21/2013 GFR CALC 7969502 GFR AA 57.0L ML/MIN 03/21/2013 GFR CALC 6712665 GFR NON-AA 47.0L ML/MIN 03/21/2013 CHEM 14 9139150 AST 18 U/L 01/17/2013 CHEM 14 1990225 ALT 32 IU/L 01/17/2013 CHEM 14 1798310 BUN 22 MG/DL 01/17/2013 CHEM 14 1608897 ALBUMIN 4.1 GM/DL 01/17/2013 CHEM 14 3535305 CHLORIDE 99 MMOL/L 01/17/2013 CHEM 14 7634425 BILI TOT 0.3 MG/DL 01/17/2013 CHEM 14 7739320 ALK PHOS 110 U/L 01/17/2013 CHEM 14 3895497 SODIUM 138 MMOL/L 01/17/2013 CHEM 14 6921544 CREATININE 1.09 MG/DL 01/17/2013 CHEM 14 0315670 CALCIUM 8.8 MG/DL 01/17/2013 CHEM 14 0240365 POTASSIUM 3.5 MMOL/L 01/17/2013 CHEM 14 9191590 PROT TOT 6.1 GM/DL 01/17/2013 CHEM 14 9509080 GLUCOSE 163 MG/DL 01/17/2013 CHEM 14 8805899 BICARB 29 MMOL/L 01/17/2013 CHEM 14 1627404 ANION GAP 10 MEQ/L 01/17/2013 CBC 5745298 WBC 8.0 10e9/L 01/17/2013 CBC 4308664 RBC 3.85 10e12/L 01/17/2013 CBC 4922595 HGB 12.6 g/dL 01/17/2013 CBC 2873817 HCT DET 38.0 % 01/17/2013 CBC 7093926 MCV 98.7 fL 01/17/2013 CBC 8905584 MCH 32.7 pg 01/17/2013 CBC 6205457 MCHC 33.2 g/dL 01/17/2013 CBC 0649587 PLT 325 10e9/L 01/17/2013 CBC 6633219 MPV 10.4 fL 01/17/2013 CBC 0898159 JOSEFINA % 64.6 % 01/17/2013 CBC 7329482 LY % 27.0 % 01/17/2013 CBC 6755935 MON % 6.8 % 01/17/2013 CBC 4949181 EOS % 1.4 % 01/17/2013 CBC 7162504 BASO % 0.2 % 01/17/2013 CBC 5596193 RDW 15.5 % 01/17/2013 CBC 5953751 ABS JOSEFINA 5.17 10e9/L 01/17/2013 CBC 1747574 ABS LYMPH 2.16 10e9/L 01/17/2013 CBC 1054364 ABS MONO 0.54 10e9/L 01/17/2013 CBC 5238096 ABS EOS 0.11 10e9/L 01/17/2013 CBC 5324578 ABS BASO 0.02 10e9/L 01/17/2013 CBC 6073299 RDW-SD 54.3 fL 01/17/2013 GFR CALC 4771116 GFR AA >60 ML/MIN 01/17/2013 GFR CALC 8248188 GFR NON-AA 51.0L ML/MIN 01/17/2013 TSH 6873434 TSH 3.683 uIU/ML 12/31/2012 FREE T4 8374836 FREE T4 1.34 NG/DL 12/31/2012 A1C HPLC 6923698 A1C HPLC 85399-3 6.6 % 12/21/2012 GFR CALC 1786808 GFR AA >60 ML/MIN 12/20/2012 GFR CALC 5309855 GFR NON-AA >60 ML/MIN 12/20/2012 CBC 1647907 WBC 8.4 10e9/L 12/20/2012 CBC 7585621 RBC 4.30 10e12/L 12/20/2012 CBC 3036508 HGB 13.9 g/dL 12/20/2012 CBC 3800291 HCT DET 41.8 % 12/20/2012 CBC 1239969 MCV 97.2 fL 12/20/2012 CBC 9701064 MCH 32.3 pg 12/20/2012 CBC 7417572 MCHC 33.3 g/dL 12/20/2012 CBC 5913773 PLT 358 10e9/L 12/20/2012 CBC 0196250 MPV 10.2 fL 12/20/2012 CBC 8745829 JOSEFINA % 63.3 % 12/20/2012 CBC 8352069 LY % 28.9 % 12/20/2012 CBC 7436302 MON % 6.3 % 12/20/2012 CBC 0227302 EOS % 1.1 % 12/20/2012 CBC 2236146 BASO % 0.4 % 12/20/2012 CBC 0949819 RDW 15.3 % 12/20/2012 CBC 5791318 ABS JOSEFINA 5.32 10e9/L 12/20/2012 CBC 9587929 ABS LYMPH 2.43 10e9/L 12/20/2012 CBC 8102807 ABS MONO 0.53 10e9/L 12/20/2012 CBC 8517737 ABS EOS 0.09 10e9/L 12/20/2012 CBC 5399545 ABS BASO 0.03 10e9/L 12/20/2012 CBC 5205393 RDW-SD 51.9 fL 12/20/2012 CHEM 14 2732034 AST 16 U/L 12/20/2012 CHEM 14 3966814 ALT 36 IU/L 12/20/2012 CHEM 14 5163724 BUN 26 MG/DL 12/20/2012 CHEM 14 7950724 ALBUMIN 4.2 GM/DL 12/20/2012 CHEM 14 8931614 CHLORIDE 103 MMOL/L 12/20/2012 CHEM 14 6640222 BILI TOT 0.4 MG/DL 12/20/2012 CHEM 14 2779073 ALK PHOS 107 U/L 12/20/2012 CHEM 14 4043050 SODIUM 141 MMOL/L 12/20/2012 CHEM 14 0309800 CREATININE 0.73 MG/DL 12/20/2012 CHEM 14 8986407 CALCIUM 9.2 MG/DL 12/20/2012 CHEM 14 7212952 POTASSIUM 4.3 MMOL/L 12/20/2012 CHEM 14 4975731 PROT TOT 6.2 GM/DL 12/20/2012 CHEM 14 3636041 GLUCOSE 135 MG/DL 12/20/2012 CHEM 14 0924095 BICARB 32 MMOL/L 12/20/2012 CHEM 14 8111571 ANION GAP 6 MEQ/L 12/20/2012 GFR CALC 7885589 GFR AA >60 ML/MIN 02/01/2012 GFR CALC 0736784 GFR NON-AA >60 ML/MIN 02/01/2012 CBC 2771973 WBC 10.8 10e9/L 02/01/2012 CBC 4478303 RBC 3.86 10e12/L 02/01/2012 CBC 2192628 HGB 11.8 g/dL 02/01/2012 CBC 8321720 HCT DET 36.3 % 02/01/2012 CBC 3467463 MCV 94.0 fL 02/01/2012 CBC 7847052 MCH 30.6 pg 02/01/2012 CBC 2978317 MCHC 32.5 g/dL 02/01/2012 CBC 9995417 PLT 321 10e9/L 02/01/2012 CBC 6983040 MPV 10.3 fL 02/01/2012 CBC 9944758 JOSEFINA % 75.9 % 02/01/2012 CBC 6474939 LY % 16.1 % 02/01/2012 CBC 2974956 MON % 6.8 % 02/01/2012 CBC 0391320 EOS % 1.0 % 02/01/2012 CBC 0725000 BASO % 0.2 % 02/01/2012 CBC 0013756 RDW 14.2 % 02/01/2012 CBC 9081305 ABS JOSEFINA 8.20 10e9/L 02/01/2012 CBC 6372233 ABS LYMPH 1.74 10e9/L 02/01/2012 CBC 1769869 ABS MONO 0.73 10e9/L 02/01/2012 CBC 8633779 ABS EOS 0.11 10e9/L 02/01/2012 CBC 7212865 ABS BASO 0.02 10e9/L 02/01/2012 CBC 7213572 RDW-SD 47.2 fL 02/01/2012 BRAIN PEP 7219383 BRAIN PEP FOOTNOTE pg/mL 02/01/2012 CHEM 14 3664537 AST 26 U/L 02/01/2012 CHEM 14 9423323 ALT 36 IU/L 02/01/2012 CHEM 14 8328200 BUN 29 MG/DL 02/01/2012 CHEM 14 8579801 ALBUMIN 3.7 GM/DL 02/01/2012 CHEM 14 5389766 CHLORIDE 105 MMOL/L 02/01/2012 CHEM 14 0637203 BILI TOT 0.2 MG/DL 02/01/2012 CHEM 14 2538471 ALK PHOS 89 U/L 02/01/2012 CHEM 14 4449809 SODIUM 141 MMOL/L 02/01/2012 CHEM 14 4090969 CREATININE 0.76 MG/DL 02/01/2012 CHEM 14 1446691 CALCIUM 9.0 MG/DL 02/01/2012 CHEM 14 5728838 POTASSIUM 4.8 MMOL/L 02/01/2012 CHEM 14 3295408 PROT TOT 5.5 GM/DL 02/01/2012 CHEM 14 0880267 GLUCOSE 83 MG/DL 02/01/2012 CHEM 14 [id number] BICARB 31 MMOL/L 02/01/2012 CHEM 14 7779612 ANION GAP 5 MEQ/L 02/01/2012 CHEM 14 6341474 AST 14 U/L 11/30/2011 CHEM 14 [id number] ALT 17 IU/L 11/30/2011 CHEM 14 [id number] BUN 12 MG/DL 11/30/2011 CHEM 14 [id number] ALBUMIN 4.3 GM/DL 11/30/2011 CHEM 14 [id number] CHLORIDE 104 MMOL/L 11/30/2011 CHEM 14 [id number] BILI TOT 0.3 MG/DL 11/30/2011 CHEM 14 [id number] ALK PHOS 83 U/L 11/30/2011 CHEM 14 [id number] SODIUM 143 MMOL/L 11/30/2011 CHEM 14 1506012 CREATININE 0.71 MG/DL 11/30/2011 CHEM 14 2694810 CALCIUM 9.7 MG/DL 11/30/2011 CHEM 14 8967304 POTASSIUM 4.4 MMOL/L 11/30/2011 CHEM 14 4270681 PROT TOT 6.3 GM/DL 11/30/2011 CHEM 14 9146585 GLUCOSE 107 MG/DL 11/30/2011 CHEM 14 9719684 BICARB 27 MMOL/L 11/30/2011 CHEM 14 3603009 ANION GAP 12 MEQ/L 11/30/2011 GFR CALC 8210269 GFR AA >60 ML/MIN 11/30/2011 GFR CALC 1360648 GFR NON-AA >60 ML/MIN 11/30/2011 CBC 1775986 WBC 8.7 10e9/L 11/30/2011 CBC 6269130 RBC 4.40 10e12/L 11/30/2011 CBC [id number] HGB 13.6 g/dL 11/30/2011 CBC 3845704 HCT DET 41.0 % 11/30/2011 CBC 8287354 MCV 93.2 fL 11/30/2011 CBC 5075972 MCH 30.9 pg 11/30/2011 CBC 9752538 MCHC 33.2 g/dL 11/30/2011 CBC 2379061 PLT 328 10e9/L 11/30/2011 CBC 6096129 MPV 10.7 fL 11/30/2011 CBC [id number] JOSEFINA % 68.4 % 11/30/2011 CBC 5945025 LY % 22.4 % 11/30/2011 CBC 6188461 MON % 7.9 % 11/30/2011 CBC 2910870 EOS % 1.1 % 11/30/2011 CBC 0913567 BASO % 0.2 % 11/30/2011 CBC 7024031 RDW 13.5 % 11/30/2011 CBC 3120697 ABS JOSEFINA 5.95 10e9/L 11/30/2011 CBC 5871005 ABS LYMPH 1.95 10e9/L 11/30/2011 CBC 0781243 ABS MONO 0.69 10e9/L 11/30/2011 CBC 4199015 ABS EOS 0.10 10e9/L 11/30/2011 CBC 1853066 ABS BASO 0.02 10e9/L 11/30/2011 CBC 6911421 RDW-SD 45.0 fL 11/30/2011 URINALYSIS NONAUTO W/O SCOPE 68457 Specific [facility] 1.030 DateTime(Free Text in Aprima) URINALYSIS NONAUTO W/O SCOPE 88254 PH 5 DateTime(Free Text in Aprima) URINALYSIS NONAUTO W/O SCOPE 33919 GLUCOSE neg DateTime( Free Text in Aprima) URINALYSIS NONAUTO W/O SCOPE 67196 Protein neg DateTime( Free Text in Aprima) URINALYSIS NONAUTO W/O SCOPE 97432 Blood neg DateTime(Free Text in Aprima) URINALYSIS NONAUTO W/O SCOPE 39429 Bilirubin neg DateTime(Free Text in Aprima) URINALYSIS NONAUTO W/O SCOPE 36911 Ketones neg DateTime( Free Text in Aprima) URINALYSIS NONAUTO W/O SCOPE 73805 Urobilinogen neg DateTime(Free Text in Aprima) URINALYSIS NONAUTO W/O SCOPE 68579 Nitrite neg DateTime( Free Text in Aprima) URINALYSIS NONAUTO W/O SCOPE 51698 Leukocytes neg DateTime(Free Text in Aprima) UA 50052 Specific [facility] 1.010 DateTime(Free Text in Aprima ) UA 43266 PH 5 DateTime(Free Text in Aprima) UA 66690 GLUCOSE N DateTime(Free Text in Aprima) UA 34478 Protein N DateTime(Free Text in Aprima) UA 11129 Blood TRACE DateTime(Free Text in Aprima) UA 13681 Bilirubin N DateTime(Free Text in Aprima) UA 35971 Ketones N DateTime(Free Text in Aprima) UA 66624 Urobilinogen N DateTime(Free Text in Aprima) UA 43291 Nitrite N DateTime(Free Text in Aprima) UA 98428 Leukocytes N DateTime(Free Text in Aprima) URINALYSIS NONAUTO W/O SCOPE 10604 Specific [facility] 1.010 DateTime(Free Text in Aprima) URINALYSIS NONAUTO W/O SCOPE 28245 PH 7.5 DateTime(Free Text in Aprima) URINALYSIS NONAUTO W/O SCOPE 08151 GLUCOSE DateTime( Free Text in Aprima) URINALYSIS NONAUTO W/O SCOPE 24843 Protein trace DateTime(Free Text in Aprima) URINALYSIS NONAUTO W/O SCOPE 75725 Blood DateTime(Free Text in Aprima) URINALYSIS NONAUTO W/O SCOPE 41726 Bilirubin DateTime( Free Text in Aprima) URINALYSIS NONAUTO W/O SCOPE 64921 Ketones DateTime( Free Text in Aprima) URINALYSIS NONAUTO W/O SCOPE 18212 Urobilinogen DateTime (Free Text in Aprima) URINALYSIS NONAUTO W/O SCOPE 13511 Nitrite DateTime( Free Text in Aprima) URINALYSIS NONAUTO W/O SCOPE 53736 Leukocytes DateTime( Free Text in Aprima) URINALYSIS NONAUTO W/O SCOPE 14027 Specific [facility] 1.010 DateTime(Free Text in Aprima) URINALYSIS NONAUTO W/O SCOPE 19328 PH 6 DateTime(Free Text in Aprima) URINALYSIS NONAUTO W/O SCOPE 19150 GLUCOSE DateTime( Free Text in Aprima) URINALYSIS NONAUTO W/O SCOPE 09895 Protein DateTime( Free Text in Aprima) URINALYSIS NONAUTO W/O SCOPE 15004 Blood DateTime(Free Text in Aprima) URINALYSIS NONAUTO W/O SCOPE 19492 Bilirubin DateTime( Free Text in Aprima) URINALYSIS NONAUTO W/O SCOPE 38118 Ketones DateTime( Free Text in Aprima) URINALYSIS NONAUTO W/O SCOPE 79205 Urobilinogen DateTime (Free Text in Aprima) URINALYSIS NONAUTO W/O SCOPE 03540 Nitrite DateTime( Free Text in Aprima) URINALYSIS NONAUTO W/O SCOPE 88977 Leukocytes DateTime( Free Text in Aprima) UA 42697 Specific [facility] 1.020 DateTime(Free Text in Aprima ) UA 49601 PH 6 DateTime(Free Text in Aprima) UA 48894 GLUCOSE neg DateTime(Free Text in Aprima) UA 39807 Protein neg DateTime(Free Text in Aprima) UA 93995 Blood neg DateTime(Free Text in Aprima) UA 98913 Bilirubin neg DateTime(Free Text in Aprima) UA 19702 Ketones neg DateTime(Free Text in Aprima) UA 36152 Urobilinogen neg DateTime(Free Text in Aprima) UA 13305 Nitrite neg DateTime(Free Text in Aprima) UA 19238 Leukocytes neg DateTime(Free Text in Aprima) Review of Systems [...] pitting 11/27/2017 None Full Exam - General 1995 [...] clear 01/16/2017 None Full Exam - General 1995 Ears/Nose/Throat [...] benign 07/26/2016 None Full Exam - General 1995 Lymphatic neck nodes Overall: posterior cervical chain [...] accomodation 06/10/2013 None Full Exam - General 1995 Ears/Nose/Throat external ear Overall: normal appearance 06/10/2013 [...] lips 02/12/2013 None Full Exam - General 1994 [...] benign 01/17/2013 None Full Exam - General 1995 Neurologic deep tendon reflexes Overall: deep tendon reflexes intact 01/17/2013 None Full Exam - General 1995 Neurologic [...] rhythm 12/31/2012 None Full Exam - General 1995 [...] accomodation 09/06/2012 None Full Exam - General 1995 Ears/Nose/Throat [...] depressed 05/17/2012 None Full Exam - General 1995 [...] rhythm 02/15/2012 None Full Exam - General 1995 [...] clear 11/03/2011 None Full Exam - General 1995 Respiratory auscultation Overall: breath sounds clear bilaterally 11/03/2011 None Full Exam - General 1994 Respiratory respiratory effort/rhythm Overall: no retractions 11/03/2011 None Full Exam - General 1995 Respiratory respiratory effort/rhythm Overall: normal rate 11/03/2011 None Full Exam - General 1995 Cardiovascular extremities Edema present: pitting 11/03/2011 None Full Exam - General 1994 Cardiovascular extremities Edema present: severity 1+ - 4 +: 2+ 11/03/2011 None Full Exam - General 1994 Cardiovascular extremities Edema present: bilateral 11/03/2011 None Full Exam - General 1995 Cardiovascular extremities Edema present: to knees 11/03/2011 [...] time 08/01/2011 None Full Exam - General 1995 [...] Codes Date OCCULT BLOOD FECES CPT -4: 10987 02/22/2018 URINALYSIS NONAUTO W/O SCOPE CPT-4: 10527 02/20/2018 URINALYSIS NONAUTO W/O SCOPE CPT-4: 24391 12/14/2017 URINALYSIS NONAUTO W/O SCOPE CPT-4: 56765 11/27/2017 PPPS, SUBSEQ VISIT CPT -4: G0439 10/27/2017 GLUCOSE MONITORING CONT CPT-4: 11211 09/27/2017 URINALYSIS NONAUTO W/O SCOPE CPT-4: 78340 06/30/2017 URINALYSIS NONAUTO W/O SCOPE CPT-4: 98884 11/25/2016 URINALYSIS NONAUTO W/O SCOPE CPT-4: 25283 10/21/2016 URINALYSIS NONAUTO W/O SCOPE CPT-4: 49766 06/24/2016 URINALYSIS NONAUTO W/O SCOPE CPT-4: 57664 04/11/2016 ADMIN PNEUMOCOCCAL VACCINE SNOMED CT: [id number] CPT-4: G0009 02/26/2016 PNEUMOCOCCAL VACC 13 ANURADHA IM Formatting Model/CDA Sections, Assigned to/Jada Velazquez CT: [id number] CPT-4: 86158Scitbpu 02/26/2016 URINALYSIS NONAUTO W/O SCOPE CPT-4: 60665 02/10/2016 URINALYSIS NONAUTO W/O SCOPE CPT-4: 64470 11/27/2015 URINALYSIS NONAUTO W/O SCOPE CPT-4: 10282 11/02/2015 INITIAL PREVENTIVE EXAM CPT-4: G0402 09/29/2015 URINALYSIS NONAUTO W/O SCOPE CPT-4: 92834 07/20/2015 TRIAMCINOLONE ACET INJ NOS CPT-4: J3301 06/26/2015 URINALYSIS NONAUTO W/O SCOPE CPT-4: 45399 11/05/2014 URINALYSIS NONAUTO W/O SCOPE CPT-4: 66866 04/21/2014 CULTURE AEROBIC IDENTIFY CPT-4: 06630 12/12/2013 URINALYSIS NONAUTO W/O SCOPE CPT-4: 74121 11/18/2013 ROUTINE VENIPUNCTURE CPT-4: 83558 09/10/2013 ROUTINE VENIPUNCTURE CPT-4: 22625 08/01/2013 URINALYSIS NONAUTO W/O SCOPE CPT-4: 61107 06/28/2013 TRIAMCINOLONE ACET INJ NOS CPT-4: J3301 05/07/2013 DRAIN/INJECT JOINT/BURSA CPT-4: 65493 05/07/2013 ROUTINE VENIPUNCTURE CPT-4: 67468 03/21/2013 ROUTINE VENIPUNCTURE CPT-4: 69655 01/17/2013 URINALYSIS NONAUTO W/O SCOPE CPT-4: 46642 01/01/2013 ROUTINE VENIPUNCTURE CPT-4: 43206 12/31/2012 ROUTINE VENIPUNCTURE CPT-4: 08727 12/20/2012 URINALYSIS NONAUTO W/O SCOPE CPT-4: 08773 11/05/2012 DRAIN/INJECT JOINT/BURSA CPT-4: 80568 09/21/2012 TRIAMCINOLONE ACET INJ NOS CPT-4: J3301 09/21/2012 URINALYSIS NONAUTO W/O SCOPE CPT-4: 12387 07/19/2012 TRIAMCINOLONE ACET INJ NOS CPT-4: J3301 07/06/2012 Pneumococcal Polysaccharide Vaccine, 23-Valent, Ad CPT-4: 64070 06/07/2012 IMMUNIZATION ADMIN CPT -4: 64849 06/07/2012 TRIAMCINOLONE ACET INJ NOS CPT-4: J3301 05/02/2012 ROUTINE VENIPUNCTURE CPT-4: 22884 02/01/2012 URINALYSIS NONAUTO W/O SCOPE CPT-4: 64888 02/01/2012 TRIAMCINOLONE ACET INJ NOS CPT-4: J3301 12/14/2011 INJ TRIGGER POINT 1/2 MUSCL CPT-4: 27324 12/14/2011 PROMETHAZINE HCL INJECTION CPT-4: J2550 11/30/2011 ROUTINE VENIPUNCTURE CPT-4: 84520 11/30/2011 TRIAMCINOLONE ACET INJ NOS CPT-4: J3301 08/01/2011 DRAIN/INJECT JOINT/BURSA CPT-4: 36820 08/01/2011 THER/PROPH/DIAG INJ SC/IM CPT-4: 85592 04/18/2011 TRIAMCINOLONE ACET INJ NOS CPT-4: J3301 04/18/2011 Vital Signs Date Vital 03/12/2018 Blood Pressure 1: 140/70 Code : 8480-6 BMI: 40.2 Code : 41223-2 Heart Rate 1 : 78 bpm Height: 5'2" SpO2: 98% Weight: 220 lbs 02/20/2018 Blood Pressure 1: 140/70 Code : 8480-6 BMI: 40.2 Code : 87644-5 Heart Rate 1 : 96 bpm Height: 5'2" SpO2: 93% Weight: 220 lbs 11/27/2017 Blood Pressure 1: 158/78 Code : 8480-6 BMI: 40.8 Code : 35707-5 Heart Rate 1 : 100 bpm Height: 5'2" SpO2: 95% Weight: 223 lbs 10/27/2017 Blood Pressure 1: 146/70 Code : 8480-6 BMI: 41.3 Code : 67980-2 Heart Rate 1 : 82 bpm Height: 5'2" SpO2: 99% Waist Measure (cm): 119 cm Weight: 226 lbs 09/15/2017 Blood Pressure 1: 136/66 Code : 8480-6 BMI: 41.5 Code : 95104-4 Heart Rate 1 : 94 bpm Height: 5'2" SpO2: 96% Weight: 227 lbs 08/18/2017 Blood Pressure 1: 120/68 Code : 8480-6 BMI: 41.5 Code : 76644-6 Heart Rate 1 : 87 bpm Height: 5'2" SpO2: 94% Weight: 227 lbs 08/03/2017 Blood Pressure 1: 132/72 Code : 8480-6 BMI: 41.5 Code : 34193-3 Heart Rate 1 : 93 bpm Height: 5'2" SpO2: 95% Weight: 227 lbs 07/27/2017 Blood Pressure 1: 128/84 Code : 8480-6 BMI: 41.5 Code : 34118-7 Heart Rate 1 : 91 bpm Height: 5'2" SpO2: 98% Weight: 227 lbs 06/13/2017 Blood Pressure 1: 136/84 Code : 8480-6 BMI: 42.6 Code : 62469-7 Heart Rate 1 : 91 bpm Height: 5'2" SpO2: 94% Weight: 233 lbs 04/21/2017 Blood Pressure 1: 142/84 Code : 8480-6 BMI: 42.8 Code : 46898-3 Heart Rate 1 : 89 bpm Height: 5'2" SpO2: 94% Weight: 234 lbs 04/18/2017 Blood Pressure 1: 140/86 Code : 8480-6 BMI: 42.8 Code : 39888-0 Heart Rate 1 : 89 bpm Height: 5'2" SpO2: 97% Weight: 234 lbs 03/27/2017 Blood Pressure 1: 148/76 Code : 8480-6 BMI: 42.6 Code : 11026-0 Heart Rate 1 : 92 bpm Height: [...] Code : 8480-6 BMI: 44.3 Code : 13592-5 Heart Rate 1 : 90 bpm Height: 5'2" SpO2: 96% Weight: 242 lbs 01/30/2017 Blood Pressure 1: 132/72 Code : 8480-6 Heart Rate 1: 97 bpm Height: 5'2" SpO2: 96% Weight: 01/16/2017 Blood Pressure 1: 138/76 Code : 8480-6 BMI: 43.3 Code : 77628-8 Heart Rate 1 : 84 bpm Height: 5'2" SpO2: 99% Weight: 237 lbs 12/13/2016 Blood Pressure 1: 144/78 Code : 8480-6 Heart Rate 1: 96 bpm Height: 5'2" SpO2: 98% Temperature: 36.6 (C) / 97.9 (F) Weight: 11/11/2016 Blood Pressure 1: 144/80 Code : 8480-6 BMI: 43.0 Code : 28193-0 Heart Rate 1 : 89 bpm Height: 5'2" SpO2: 94% Temperature: 36.1 (C) / 97.0 (F) Weight: 235 lbs 10/28/2016 Blood Pressure 1: 156/82 Code : 8480-6 BMI: 43.9 Code : 43850-1 Heart Rate 1 : 78 bpm Height: [...] Code : 8480-6 BMI: 42.4 Code : 41677-2 Heart Rate 1 : 95 bpm Height: 5'2" SpO2: 98% Weight: 232 lbs 08/09/2016 Blood Pressure 1: 138/80 Code : 8480-6 BMI: 41.0 Code : 33435-7 Heart Rate 1 : 98 bpm Height: 5'2" SpO2: 97% Weight: 224 lbs 07/26/2016 Blood Pressure 1: 148/82 Code : 8480-6 BMI: 42.4 Code : 12886-6 Heart Rate 1 : 89 bpm Height: 5'2" SpO2: 97% Weight: 232 lbs 05/24/2016 Blood Pressure 1: 146/72 Code : 8480-6 BMI: 42.4 Code : 30541-3 Heart Rate 1 : 89 bpm Height: 5'2" SpO2: 99% Weight: 232 lbs 04/19/2016 Blood Pressure 1: 130/88 Code : 8480-6 BMI: 42.4 Code : 32561-5 Heart Rate 1 : 88 bpm Height: 5'2" SpO2: 98% Weight: 232 lbs 04/11/2016 Blood Pressure 1: 140/80 Code : 8480-6 BMI: 41.7 Code : 05521-4 Heart Rate 1 : 97 bpm Height: 5'2" SpO2: 95% Weight: 228 lbs 03/21/2016 Blood Pressure 1: 138/80 Code : 8480-6 BMI: 44.4 Code : 68719-1 Height: 5'2" Weight: 243 lbs 03/11/2016 Blood Pressure 1: 138/82 Code : 8480-6 BMI: 44.4 Code : 45726-6 Heart Rate 1 : 86 bpm Height: 5'2" SpO2: 95% Weight: 243 lbs 02/26/2016 Blood Pressure 1: 130/82 Code : 8480-6 BMI: 43.9 Code : 54170-5 Heart Rate 1 : 86 bpm Height: 5'2" SpO2: 97% Weight: 240 lbs 02/02/2016 Blood Pressure 1: 136/86 Code : 8480-6 Heart Rate 1: 56 bpm Height: SpO2: 96% Weight: 12/17/2015 Blood Pressure 1: 140/80 Code : 8480-6 BMI: 40.2 Code : 18526-7 Heart Rate 1 : 100 bpm Height: 5'2" SpO2: 99% Weight: 220 lbs 12/08/2015 Blood Pressure 1: 132/86 Code : 8480-6 Heart Rate 1: 100 bpm Height: SpO2: 97% Weight: 11/27/2015 Blood Pressure 1: 128/82 Code : 8480-6 BMI: 39.3 Code : 08835-2 Heart Rate 1 : 112 bpm Height: 5'2" SpO2: 96% Weight: 215 lbs 11/12/2015 Blood Pressure 1: 168/88 Code : 8480-6 Heart Rate 1: 106 bpm Height: 5'2" SpO2: 96% Weight: 11/10/2015 Blood Pressure 1: 156/80 Code : 8480-6 Heart Rate 1: 94 bpm Height: 5'2" SpO2: 96% Weight: 10/27/2015 Blood Pressure 1: 142/76 Code : 8480-6 BMI: 40.8 Code : 65596-2 Heart Rate 1 : 86 bpm Height: 5'2" SpO2: 97% Weight: 223 lbs 09/29/2015 Blood Pressure 1: 132/88 Code : 8480-6 BMI: 41.7 Code : 97758-5 Heart Rate 1 : 104 bpm Height: 5'2" SpO2: 94% Weight: 228 lbs 09/22/2015 Blood Pressure 1: 130/80 Code : 8480-6 BMI: 41.7 Code : 19568-0 Heart Rate 1 : 89 bpm Height: 5'2" SpO2: 97% Weight: 228 lbs 09/01/2015 Blood Pressure 1: 138/88 Code : 8480-6 BMI: 40.6 Code : 95813-8 Heart Rate 1 : 95 bpm Height: 5'2" SpO2: 95% Weight: 222 lbs 08/10/2015 Blood Pressure 1: 140/82 Code : 8480-6 BMI: 41.0 Code : 98410-1 Heart Rate 1 : 84 bpm Height: 5'2" SpO2: 97% Weight: 224 lbs 06/26/2015 Blood Pressure 1: 152/72 Code : 8480-6 BMI: 41.2 Code : 62345-7 Heart Rate 1 : 92 bpm Height: 5'2" SpO2: 96% Weight: 225 lbs 04/14/2015 Blood Pressure 1: 158/86 Code : 8480-6 BMI: 41.2 Code : 12817-8 Heart Rate 1 : 63 bpm Height: 5'2" SpO2: 93% Weight: 225 lbs 03/03/2015 Blood Pressure 1: 152/80 Code : 8480-6 BMI: 40.1 Code : 28701-8 Heart Rate 1 : 101 bpm Height: 5'2" SpO2: 97% Weight: 219 lbs 01/15/2015 Blood Pressure 1: 127/76 Code : 8480-6 BMI: 40.6 Code : 45195-9 Heart Rate 1 : 109 bpm Height: 5'2" SpO2: 97% Weight: 222 lbs 01/01/2015 Blood Pressure 1: 136/64 Code : 8480-6 BMI: 40.4 Code : 38724-7 Heart Rate 1 : 94 bpm Height: 5'2" SpO2: 96% Weight: 221 lbs 12/25/2014 Blood Pressure 1: 146/80 Code : 8480-6 Heart Rate 1: 95 bpm Height: 5'2" SpO2: 94% 11/04/2014 Blood Pressure 1: 110/70 Code : 8480-6 BMI: 40.2 Code : 14969-1 Heart Rate 1 : 878 bpm Height: 5'2" SpO2: 97% Weight: 220 lbs 09/08/2014 Blood Pressure 1: 142/78 Code : 8480-6 BMI: 39.5 Code : 70384-3 Heart Rate 1 : 97 bpm Height: 5'2" SpO2: 98% Weight: 216 lbs 08/29/2014 Blood Pressure 1: 140/90 Code : 8480-6 Blood Pressure 2: 120/70 Code: 8480-6 BMI: 40.2 Code: 37918-9 Heart Rate 1: 88 bpm Height: 5'2" Weight: 220 lbs 06/30/2014 Blood Pressure 1: 132/74 Code : 8480-6 BMI: 39.1 Code : 20166-6 Heart Rate 1 : 76 bpm Height: 5'2" Weight: 214 lbs 06/12/2014 Blood Pressure 1: 118/76 Code : 8480-6 BMI: 40.4 Code : 28018-0 Heart Rate 1 : 86 bpm Height: 5'2" SpO2: 96% Weight: 221 lbs 05/26/2014 Blood Pressure 1: 128/78 Code : 8480-6 BMI: 39.5 Code : 20643-3 Heart Rate 1 : 76 bpm Height: 5'2" Weight: 216 lbs 04/15/2014 Blood Pressure 1: 144/72 Code : 8480-6 BMI: 40.8 Code : 07103-5 Heart Rate 1 : 60 bpm Height: 5'2" Weight: 223 lbs 03/25/2014 Blood Pressure 1: 118/72 Code : 8480-6 BMI: 41.2 Code : 83137-9 Heart Rate 1 : 80 bpm Height: 5'2" Weight: 225 lbs 03/03/2014 Blood Pressure 1: 138/86 Code : 8480-6 BMI: 41.5 Code : 23176-4 Heart Rate 1 : 104 bpm Height: 5'2" Temperature: 36.1 (C) / 97.0 (F) Weight: 227 lbs 02/13/2014 Blood Pressure 1: 142/88 Code : 8480-6 BMI: 40.8 Code : 44572-7 Heart Rate 1 : 88 bpm Height: 5'2" Weight: 223 lbs 01/27/2014 Blood Pressure 1: 124/68 Code : 8480-6 BMI: 39.9 Code : 63415-3 Heart Rate 1 : 89 bpm Height: 5'2" SpO2: 94% Weight: 218 lbs 12/26/2013 Blood Pressure 1: 108/52 Code : 8480-6 BMI: 41.2 Code : 29937-4 Heart Rate 1 : 96 bpm Height: 5'2" Weight: 225 lbs 12/12/2013 Blood Pressure 1: 158/88 Code : 8480-6 BMI: 42.6 Code : 40029-6 Heart Rate 1 : 80 bpm Height: 5'2" Weight: 233 lbs 11/14/2013 Blood Pressure 1: 120/60 Code : 8480-6 BMI: 42.4 Code : 45523-9 Heart Rate 1 : 96 bpm Height: 5'2" Temperature: 5423.3 (C ) / 9794.0 (F) Weight: 232 lbs 10/21/2013 Blood Pressure 1: 100/60 Code : 8480-6 BMI: 41.9 Code : 21932-8 Heart Rate 1 : 96 bpm Height: 5'2" Weight: 229 lbs 10/03/2013 Blood Pressure 1: 122/72 Code : 8480-6 BMI: 42.3 Code : 49824-0 Heart Rate 1 : 84 bpm Height: 5'2" Weight: 231 lbs 09/27/2013 Blood Pressure 1: 112/58 Code : 8480-6 Heart Rate 1: 72 bpm SpO2: 93% Temperature: 36.2 (C) / 97.1 (F) Weight: 09/23/2013 Blood Pressure 1: 108/76 Code : 8480-6 BMI: 42.4 Code : 61750-8 Heart Rate 1 : 95 bpm Height: 5'2" SpO2: 96% Weight: 232 lbs 09/20/2013 Blood Pressure 1: 150/88 Code : 8480-6 BMI: 42.4 Code : 96428-7 Heart Rate 1 : 104 bpm Height: 5'2" Weight: 232 lbs 09/10/2013 Blood Pressure 1: 112/62 Code : 8480-6 Heart Rate 1: 88 bpm Weight: 238 lbs 08/19/2013 Blood Pressure 1: 102/58 Code : 8480-6 BMI: 43.7 Code : 28625-8 Heart Rate 1 : 80 bpm Height: 5'2" Weight: 239 lbs 08/12/2013 Blood Pressure 1: 110/60 Code : 8480-6 BMI: 43.3 Code : 99843-3 Heart Rate 1 : 90 bpm Height: 5'2" SpO2: 96% Weight: 236 lbs 8 oz 08/01/2013 Blood Pressure 1: 128/72 Code : 8480-6 BMI: 42.6 Code : 05587-8 Heart Rate 1 : 78 bpm Height: 5'2" SpO2: 97% Weight: 233 lbs 07/19/2013 Blood Pressure 1: 100/60 Code : 8480-6 BMI: 44.3 Code : 36566-8 Heart Rate 1 : 92 bpm Height: 5'2" Temperature: 36.2 (C) / 97.2 (F) Weight: 242 lbs 07/15/2013 Blood Pressure 1: 180/92 Code : 8480-6 Heart Rate 1: 115 bpm SpO2: 98% Weight: 06/27/2013 Blood Pressure 1: 114/64 Code : 8480-6 BMI: 44.1 Code : 96199-3 Heart Rate 1 : 114 bpm Height: 5'2" SpO2: 93% Weight: 241 lbs 06/10/2013 Blood Pressure 1: 174/86 Code : 8480-6 BMI: 44.1 Code : 52655-3 Heart Rate 1 : 132 bpm Height: 5'2" SpO2: 94% Temperature: 35.6 (C) / 96.0 (F) Weight: 241 lbs 05/07/2013 Blood Pressure 1: 160/88 Code : 8480-6 BMI: 43.5 Code : 93475-5 Heart Rate 1 : 108 bpm Height: 5'2" SpO2: 96% Weight: 238 lbs 04/16/2013 Blood Pressure 1: 116/62 Code : 8480-6 BMI: 44.6 Code : 73617-8 Heart Rate 1 : 90 bpm Height: 5'2" SpO2: 94% Weight: 244 lbs 03/21/2013 Blood Pressure 1: 102/64 Code : 8480-6 BMI: 42.8 Code : 35789-2 Height: 5'2" Weight: 234 lbs 02/12/2013 Blood Pressure 1: 130/78 Code : 8480-6 BMI: 42.0 Code : 66550-7 Heart Rate 1 : 100 bpm Height: 5'2" Weight: 229 lbs 8 oz 02/04/2013 Blood Pressure 1: 126/68 Code : 8480-6 BMI: 44.3 Code : 42935-6 Heart Rate 1 : 88 bpm Height: 5'2" Weight: 242 lbs 01/17/2013 Blood Pressure 1: 132/76 Code : 8480-6 Heart Rate 1: 121 bpm SpO2: 97% Weight: 242 lbs 12/31/2012 Blood Pressure 1: 144/90 Code : 8480-6 BMI: 43.0 Code : 26958-0 Heart Rate 1 : 96 bpm Height: 5'2" Temperature: 36.2 (C) / 97.2 (F) Weight: 235 lbs 12/20/2012 Blood Pressure 1: 156/96 Code : 8480-6 BMI: 42.4 Code : 80752-5 Heart Rate 1 : 96 bpm Height: [...] Code : 8480-6 BMI: 38.8 Code : 02180-8 Heart Rate 1 : 96 bpm Height: 5'2" Temperature: 36.3 (C) / 97.3 (F) Weight: 212 lbs 08/23/2012 Blood Pressure 1: 116/72 Code : 8480-6 BMI: 38.3 Code : 01434-5 Heart Rate 1 : 92 bpm Height: 5'2" Weight: 209 lbs 8 oz 08/13/2012 Blood Pressure 1: 140/92 Code : 8480-6 BMI: 37.3 Code : 13754-9 Heart Rate 1 : 104 bpm Height: 5'2" Weight: 204 lbs 08/07/2012 Blood Pressure 1: 148/98 Code : 8480-6 BMI: 36.6 Code : 11448-7 Heart Rate 1 : 102 bpm Height: [...] Code : 8480-6 BMI: 35.3 Code : 28493-0 Heart Rate 1 : 105 bpm Height: [...] december - she was seen by her senior staff consultant again in mid 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 She states that she saw her senior staff consultant and was to be started on another [...] bed when she was there with her Gibson skin lesion Frequency of Episodes unchanged 12/12/2013 [...] knee pain Quality locking 10/03/[address] sandoval give her hydrocodone 7.5 and wants us [...] pain Quality throbbing 09/10/2013 LEFT SHOULDER PAIN-DR SANDOVAL ORDERED MRI LEFT SHOULDER skin lesion Onset and Resolution ongoing 09/10/2013 None skin lesion Onset of Symptom 1 weeks ago 09/10/2013 None skin lesion Severity mild 09/10/2013 None skin lesion Significant Medical Conditions trauma 09/10/2013 fell last Monday skin lesion Triggers activity 09/10/2013 None skin lesion Alleviating Factors medication 09/10/2013 went to [facility] on Monday and start on Cipro [...] differently. States she did eat BBQ from [employer] yesterday for lunch. hypertension Quality chronic [...] data Encounters Encounter Performer Location Codes Date 79938 EST. PATIENT, LEVEL IV Diagnosis: Type 2 diabetes mellitus with hyperglycemia[ICD10: E11.65] Diagnosis: Low back pain[ICD10: M54.5] Diagnosis: Essential (primary) hypertension[ICD10: I10] Diagnosis: Generalized anxiety disorder[ICD10: F41.1] Rika Motta MD, [facility] CPT-4: 49911 03/12/2018 ([id number]) 25242 EST. PATIENT, LEVEL III Diagnosis: Type 2 diabetes mellitus with hyperglycemia[ICD10: E11.65] Diagnosis: Essential (primary) hypertension[ICD10: I10] Diagnosis: Dysuria[ICD10: R30.0] Diagnosis: Vitamin D deficiency, unspecified[ICD10: E55.9] Diagnosis: Low back pain[ICD10: M54.5] Rika Motta MD, [facility] CPT-4: 87043 02/20/2018 ([id number]) 25768 EST. PATIENT, LEVEL III Diagnosis: Dysuria[ICD10: R30.0] Diagnosis: Essential (primary) hypertension[ICD10: I10] Rika Motta MD, [facility] CPT-4: 62183 11/27/2017 ([id number]) 24657 EST. PATIENT, LEVEL III Diagnosis: Type 2 diabetes mellitus with hyperglycemia[ICD10: E11.65] Diagnosis: Chronic pain syndrome[ICD10: G89.4] Rika Motta MD, [facility] CPT-4: 09166 09/15/2017 ([id number]) 86573 EST. 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 CPT-4: 34590 2017 ([phone] [phone] EST. PATIENT, LEVEL III Diagnosis: Chronic maxillary sinusitis[ICD10: J32.0] Diagnosis: Type 2 diabetes mellitus with hyperglycemia[ICD10: E11.65] Diagnosis: Hordeolum externum left upper eyelid[ICD10: H00.014] Rika Motta MD, [facility] CPT-4: 66190 08/03/2017 ([id number]) 59856 EST. PATIENT, LEVEL IV Diagnosis: Type 2 diabetes mellitus with hyperglycemia[ICD10: E11.65] Diagnosis: Hordeolum externum left upper eyelid[ICD10: H00.014] Diagnosis: Essential (primary) hypertension[ICD10: I10] Diagnosis: Chronic obstructive pulmonary disease, unspecified[ICD10: J44.9] Rika Motta MD, [facility] CPT-4: 36679 07/27/2017 ([id number]) 19382 EST. PATIENT, LEVEL IV Diagnosis: Type 2 diabetes mellitus with hyperglycemia[ICD10: E11.65] Diagnosis: Essential (primary) hypertension[ICD10: I10] Tessie Motta MD, [facility] CPT-4: 59846 06/13/2017 29821 EST. PATIENT, LEVEL IV Diagnosis: Periapical abscess without sinus[ICD10: K04.7] Arlette Motta MD, [facility] CPT-4: 33603 04/21/2017 ([id number]) 27928 EST. PATIENT, LEVEL IV Diagnosis: Type 2 diabetes mellitus with hyperglycemia[ICD10: E11.65] Diagnosis: Cellulitis of abdominal wall[ICD10: L03.311] Diagnosis: Chronic pain syndrome[ICD10: G89.4] Diagnosis: Essential (primary) hypertension[ICD10: I10] Diagnosis: Unsteadiness on feet[ICD10: R26.81] Rika Motta MD, [facility] CPT-4: 48384 04/18/2017 ([id number]) 70126 EST. PATIENT, LEVEL IV Diagnosis: Type 2 diabetes mellitus with hyperglycemia[ICD10: E11.65] Diagnosis: Hypokalemia[ICD10: E87.6] Diagnosis: Essential (primary) hypertension[ICD10: I10] Diagnosis: Paroxysmal atrial fibrillation[ICD10: I48.0] Rika Motta MD, [facility] CPT-4: 36212 03/27/2017 ([id number]) 39015 EST. PATIENT, LEVEL IV Diagnosis: Essential (primary) hypertension[ICD10: I10] Diagnosis: Type 2 diabetes mellitus with hyperglycemia[ICD10: E11.65] Diagnosis: Hypokalemia[ICD10: E87.6] Diagnosis: Generalized abdominal pain[ICD10: R10.84] Rika Motta MD, [facility] CPT-4: 65227 02/27/2017 ([id number]) 55526 EST. PATIENT, LEVEL III Diagnosis: Drug induced constipation[ICD10: K59.03] Rika Motta MD [facility] CPT-4: 81013 02/21/2017 ([id number]) 82935 EST. PATIENT, LEVEL IV Diagnosis: Generalized abdominal pain[ICD10: R10.84] Diagnosis: Hypokalemia[ICD10: E87.6] Diagnosis: Hypomagnesemia[ICD10: E83.42] Rika Motta MD, [facility] CPT-4: 30925 02/17/2017 ([id number]) 89781 EST. PATIENT, LEVEL IV Diagnosis: Paroxysmal atrial fibrillation[ICD10: I48.0] Diagnosis: Essential (primary) hypertension[ICD10: I10] Diagnosis: Chronic obstructive pulmonary disease, unspecified[ICD10: J44.9] Diagnosis: Type 2 diabetes mellitus with hyperglycemia[ICD10: E11.65] Diagnosis: Diarrhea, unspecified[ICD10: R19.7] Rika Motta MD, [facility] CPT-4: 46068 02/13/2017 ([id number]) 45191 EST. PATIENT, LEVEL IV Diagnosis: Type 2 diabetes mellitus with hyperglycemia[ICD10: E11.65] Diagnosis: Pain in right shoulder[ICD10: M25.511] Diagnosis: Chronic maxillary sinusitis[ICD10: J32.0] Rika Motta MD, [facility] CPT-4: 72302 01/30/2017 ([id number]) 44035 EST. PATIENT, LEVEL IV Diagnosis: Essential (primary) hypertension[ICD10: I10] Diagnosis: Type 2 diabetes mellitus with hyperglycemia[ICD10: E11.65] Diagnosis: Hypothyroidism, unspecified[ICD10: E03.9] Diagnosis: Generalized anxiety disorder[ICD10: F41.1] Diagnosis: Chronic pain syndrome[ICD10: G89.4] Diagnosis: Restless legs syndrome[ICD10: G25.81] Diagnosis: Obstructive sleep apnea (adult) (pediatric)[ICD10: G47.33] Rika Motta MD, [facility] CPT-4: 94763 01/16/2017 23005 EST. PATIENT, LEVEL IV Diagnosis: Other acute sinusitis[ICD10: J01.80] Diagnosis: Diplopia[ICD10: H53.2] Arlette Motta MD, [facility] CPT-4: 51516 12/13/2016 ([id number]) 38459 EST. PATIENT, LEVEL IV Diagnosis: Essential (primary) hypertension[ICD10: I10] Diagnosis: Fasciculation[ICD10: R25.3] Diagnosis: Generalized anxiety disorder[ICD10: F41.1] Diagnosis: Other obesity due to excess calories[ICD10: E66.09] Diagnosis: [place] without complications[ICD10: B02.9] Diagnosis: Unilateral primary osteoarthritis, right knee[ICD10: M17.11] Diagnosis: Unsteadiness on feet[ICD10: R26.81] Rika Motta MD, [facility] CPT-4: 73122 11/11/2016 ([id number]) [id number] EST. PATIENT, LEVEL IV Diagnosis: [place] without complications[ICD10: B02.9] Diagnosis: Type 2 diabetes mellitus with hyperglycemia[ICD10: E11.65] Diagnosis: Vomiting, unspecified[ICD10: R11.10] Rika Motta MD, [facility] CPT-4: 99659 10/28/2016 [id number]) [id number] EST. PATIENT, LEVEL III Diagnosis: Pain in right knee[ICD10: M25.561] Diagnosis: [place] without complications[ICD10: B02.9] Rika Motta MD, [facility] CPT-4: 37291 10/13/2016 [id number]) [id number] EST. PATIENT, LEVEL IV Diagnosis: Acute recurrent maxillary sinusitis[ICD10: J01.01] Diagnosis: Low back pain[ICD10: M54.5] Diagnosis: Pain in right knee[ICD10: M25.561] Diagnosis: Allergic rhinitis due to pollen[ICD10: J30.1] Rika Motta MD, [facility] CPT-4: 03796 09/23/2016 ([id number]) 96901 EST. PATIENT, LEVEL IV Diagnosis: Pain in right shoulder[ICD10: M25.511] Diagnosis: Type 2 diabetes mellitus with hyperglycemia[ICD10: E11.65] Diagnosis: Cervicalgia[ICD10: M54.2] Diagnosis: Candidiasis of skin and nail[ICD10: B37.2] Diagnosis: Low back pain[ICD10: M54.5] Rika Motta MD, [facility] CPT-4: 89544 09/13/2016 ([id number]) [id number] EST. 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 CPT-4: 81314 08/09/2016 ([id number]) 10931 EST. PATIENT, LEVEL IV Diagnosis: Type 2 diabetes mellitus with hyperglycemia[ICD10: E11.65] Diagnosis: Candidiasis of skin and nail[ICD10: B37.2] Diagnosis: Chronic obstructive pulmonary disease, unspecified[ICD10: J44.9] Diagnosis: Paroxysmal atrial fibrillation[ICD10: I48.0] Diagnosis: Pneumonia, unspecified organism[ICD10: J18.9] Rika Motta MD, [facility] CPT-4: 44477 07/26/2016 ([id number]) 62713 EST. PATIENT, LEVEL IV Diagnosis: Type 2 diabetes mellitus with hyperglycemia[ICD10: E11.65] Diagnosis: Generalized anxiety disorder[ICD10: F41.1] Diagnosis: Essential (primary) hypertension[ICD10: I10] Diagnosis: Chronic pain syndrome[ICD10: G89.4] Rika Motta MD, [facility] CPT-4: 07227 05/24/2016 ([id number]) 72336 EST. PATIENT, LEVEL IV Diagnosis: Menopausal and female climacteric states[ICD10: N95.1] Diagnosis: Type 2 diabetes mellitus with hyperglycemia[ICD10: E11.65] Diagnosis: Generalized anxiety disorder[ICD10: F41.1] Rika Motta MD, [facility] CPT-4: 38208 04/19/2016 ([id number]) 69016 EST. PATIENT, LEVEL IV Diagnosis: Type 2 diabetes mellitus with hyperglycemia[ICD10: E11.65] Diagnosis: Generalized anxiety disorder[ICD10: F41.1] Diagnosis: Essential (primary) hypertension[ICD10: I10] Diagnosis: Dysuria[ICD10: R30.0] Rika Motta MD, [facility] CPT-4: 25547 04/11/2016 79531) 87216 EST. PATIENT, LEVEL IV Diagnosis: Generalized anxiety disorder[ICD10: F41.1] Diagnosis: Major depressive disorder, single episode, mild[ICD10: F32.0] Diagnosis: Hypothyroidism, unspecified[ICD10: E03.9] Diagnosis: Type 2 diabetes mellitus with hyperglycemia[ICD10: E11.65] Rika Motta MD, [facility] CPT-4: 46647 03/21/2016 49803) 23145 EST. PATIENT, LEVEL IV Diagnosis: Type 2 diabetes mellitus with hyperglycemia[ICD10: E11.65] Diagnosis: Cellulitis of right lower limb[ICD10: L03.115] Diagnosis: Other elevated white blood cell count[ICD10: D72.828] Diagnosis: Localized edema[ICD10: R60.0] Rika Motta MD, [facility] CPT-4: 16240 03/11/2016 [id number]) 62197 EST. PATIENT, LEVEL IV Diagnosis: Type 2 diabetes mellitus with hyperglycemia[ICD10: E11.65] Diagnosis: Localized edema[ICD10: R60.0] Diagnosis: Other conjunctivitis[ICD10: H10.89] Diagnosis: Obstructive sleep apnea (adult) (pediatric)[ICD10: G47.33] Diagnosis: Unspecified asthma, uncomplicated[ICD10: J45.909] Diagnosis: VAC STREP PNEUMONIAE-FLU[ICD10: Z23] Rika Motta MD, [facility] CPT-4: 89119 02/26/2016 [id number]) 51802 EST. PATIENT, LEVEL IV Diagnosis: Essential (primary) hypertension[ICD10: I10] Diagnosis: Paroxysmal atrial fibrillation[ICD10: I48.0] Diagnosis: Type 2 diabetes mellitus with hyperglycemia[ICD10: E11.65] Diagnosis: Obstructive sleep apnea (adult) (pediatric)[ICD10: G47.33] Diagnosis: Chronic obstructive pulmonary disease, unspecified[ICD10: J44.9] Rika Motta MD, [facility] CPT-4: 30720 02/02/2016 ([id number]) 46366 EST. 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 CPT-4: 13300 12/17/2015 ([id number]) 19730 EST. 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 CPT-4: 75602 12/08/2015 ([id number]) 45427 EST. PATIENT, LEVEL IV Diagnosis: Type 2 diabetes mellitus with hyperglycemia[ICD10: E11.65] Diagnosis: Generalized anxiety disorder[ICD10: F41.1] Diagnosis: Essential (primary) hypertension[ICD10: I10] Diagnosis: Restless legs syndrome[ICD10: G25.81] Diagnosis: Dysuria[ICD10: R30.0] Rika Motta MD, [facility] CPT-4: 29378 11/27/2015 10180 EST. PATIENT, LEVEL IV Diagnosis: Addisonian crisis[ICD10: E27.2] Arlette Motta MD, [facility] CPT-4 : 13418 11/12/2015 62025 EST. PATIENT, LEVEL IV Diagnosis: Acute bronchitis due to other specified organisms[ICD10: J20.8] Diagnosis: Other acute sinusitis[ICD10: J01.80] Diagnosis: Other malaise[ICD10: R53.81] Diagnosis: Cough[ICD10: R05] Arlette Motta MD, [facility] CPT-4: 76817 11/10/2015 01214 EST. PATIENT, LEVEL IV Diagnosis: Pain in left knee[ICD10: M25.562] Diagnosis: Cellulitis of right toe[ICD10: L03.031] Arlette Motta MD, [facility] CPT-4: 38160 10/27/2015 ([id number]) 87646 EST. PATIENT, LEVEL IV Diagnosis: Essential (primary) hypertension[ICD10: I10] Diagnosis: Localized edema[ICD10: R60.0] Diagnosis: Type 2 diabetes mellitus with hyperglycemia[ICD10: E11.65] Rika Motta MD, [facility] CPT-4: 74890 09/22/2015 ([id number]) 06072 EST. PATIENT, LEVEL IV Diagnosis: Essential (primary) hypertension[ICD10: I10] Diagnosis: Type 2 diabetes mellitus with hyperglycemia[ICD10: E11.65] Diagnosis: Cellulitis of right toe[ICD10: L03.031] Rika Motta MD, [facility] CPT-4: 98152 09/01/2015 ([id number]) 80155 EST. PATIENT, LEVEL IV Diagnosis: Type 2 diabetes mellitus with hyperglycemia[ICD10: E11.65] Diagnosis: Essential (primary) hypertension[ICD10: I10] Diagnosis: Generalized anxiety disorder[ICD10: F41.1] Diagnosis: Hypothyroidism, unspecified[ICD10: E03.9] Diagnosis: Body mass index (BMI) 40.0-44.9, adult[ICD10: Z68.41] Rika Motta MD, [facility] CPT-4: 42727 08/10/2015 18656 EST. PATIENT, LEVEL IV Diagnosis: Acute bronchitis due to other specified organisms[ICD10: J20.8] Diagnosis: Pain in left knee[ICD10: M25.562] Diagnosis: Type 2 diabetes mellitus with hyperglycemia[ICD10: E11.65] Arlette Motta MD, [facility] CPT-4: 88810 06/26/2015 ([id number]) 48957 EST. PATIENT, LEVEL IV Diagnosis: Cellulitis of right lower limb[ICD10: L03.115] Diagnosis: Type 2 diabetes mellitus with hyperglycemia[ICD10: E11.65] Diagnosis: Essential (primary) hypertension[ICD10: I10] Diagnosis: Edema, unspecified[ICD10: R60.9] Rika Motta MD, [facility] CPT-4: 20715 04/14/2015 ([id number]) 63072 EST. PATIENT, LEVEL IV Diagnosis: Essential (primary) hypertension[ICD10: I10] Diagnosis: Type 2 diabetes mellitus with hyperglycemia[ICD10: E11.65] Diagnosis: Localized edema[ICD10: R60.0] Diagnosis: Dysuria[ICD10: R30.0] Rika Motta MD, [facility] CPT-4: 43964 03/03/2015 ([id number]) 77771 EST. PATIENT, LEVEL III Diagnosis: Blister of leg[ICD9: 916.2] Diagnosis: Rash[ICD9: 782.1] Diagnosis: EDEMA[ICD9: 782.3] Tessie Motta MD, [facility] CPT-4: 49090 01/15/2015 ([id number]) 28136 EST. PATIENT, LEVEL IV Diagnosis: Cellulitis, leg[ICD9: 682.6] Diagnosis: DIABETES TYPE II[ICD9: 250.00] Tessie Motta MD, [facility] CPT- 4: 85879 01/01/2015 ([id number]) Miscellaneous no charge Diagnosis: CVA (cerebral vascular accident)[ICD9: 434.91] Isabella Motta MD, [facility] CPT-4: 19529 12/25/2014 ([id number]) 04177 EST. PATIENT, LEVEL IV Diagnosis: ESSENTIAL HYPERTENSION[ICD9: 401.9] Diagnosis: DM W/O COMPLICATION TYPE II, UNCONTROLLED[ICD9: 250.02] Diagnosis: EDEMA[ICD9: 782.3] Diagnosis: Dysuria[ICD9: 788.1] Rika Motta MD, [facility] CPT-4: 77669 11/04/2014 ([id number]) 51546 EST. PATIENT, LEVEL IV Diagnosis: EDEMA[ICD9: 782.3] Diagnosis: Cellulitis of right leg[ICD9: 682.6] Diagnosis: Allergic rhinitis[ICD9: 477.9] Rika Motta MD, [facility] CPT-4: 40044 09/08/2014 ([id number]) 29391 EST. PATIENT, LEVEL IV Diagnosis: EDEMA[ICD9: 782.3] Diagnosis: ESSENTIAL HYPERTENSION[ICD9: 401.9] Diagnosis: DIABETES TYPE II[ICD9: 250.00] Diagnosis: Cellulitis of right leg[ICD9: 682.6] Rika Motta MD, [facility] CPT-4: 42966 08/29/2014 ([id number]) 01052 EST. PATIENT, LEVEL III Diagnosis: EDEMA[ICD9: 782.3] Diagnosis: DIABETES TYPE II[ICD9: 250.00] Tessie Motta MD, [facility] CPT- 4: 23454 06/30/2014 ([id number]) 35958 EST. PATIENT, LEVEL IV Diagnosis: EDEMA[ICD9: 782.3] Diagnosis: DM W/O COMPLICATION TYPE II, UNCONTROLLED[ICD9: 250.02] Diagnosis: Sciatica[ICD9: 724.3] Tessie Motta MD, [facility] CPT-4: 84226 06/12/2014 ([id number]) 40957 EST. PATIENT, LEVEL III Diagnosis: Cellulitis, leg[ICD9: 682.6] Diagnosis: EDEMA[ICD9: 782.3] Rika Motta MD, [facility] CPT-4: 82913 05/26/2014 ([id number]) 85697 EST. PATIENT, LEVEL IV Diagnosis: DIABETES TYPE II[ICD9: 250.00] Diagnosis: Chronic sinusitis[ICD9: 473.9] Tessie Motta MD, [facility] CPT- 4: 86364 04/15/2014 ([id number]) 05698 EST. PATIENT, LEVEL IV Diagnosis: DM W/O COMPLICATION TYPE II, UNCONTROLLED[ICD9: 250.02] Diagnosis: CHRONIC SINUSITIS[ICD9: 473.9] Diagnosis: EDEMA[ICD9: 782.3] Diagnosis: Right knee pain[ICD9: 719.46] Rika Motta MD, [facility] CPT-4: 76721 03/25/2014 ([id number]) 58689 EST. PATIENT, LEVEL IV Diagnosis: Blister of leg[ICD9: 916.2] Diagnosis: EDEMA[ICD9: 782.3] Diagnosis: DM W/O COMPLICATION TYPE II, UNCONTROLLED[ICD9: 250.02] Diagnosis: ESSENTIAL HYPERTENSION[ICD9: 401.9] Rika Motta MD, [facility] CPT-4: 90317 03/03/2014 ([id number]) 19569 EST. PATIENT, LEVEL IV Diagnosis: CELLULITIS OF LEG[ICD9: 682.6] Diagnosis: Diabetes mellitus type 2, uncontrolled[ICD9: 250.02] Diagnosis: ESSENTIAL HYPERTENSION[ICD9: 401.9] Diagnosis: EDEMA[ICD9: 782.3] Tessie Motta MD, [facility] CPT-4: 93395 02/13/2014 ([id number]) 06013 EST. PATIENT, LEVEL IV Diagnosis: Diabetes mellitus type 2, uncontrolled[ICD9: 250.02] Tessie Motta MD, [facility] CPT-4: 16550 01/27/2014 ([id number]) 31877 EST. PATIENT, LEVEL III Diagnosis: OPEN WND KNEE/LEG/ANKLE[ICD9: 891.0] Diagnosis: EDEMA[ICD9: 782.3] Rika Motta MD, [facility] CPT-4: 98156 12/26/2013 ([id number]) 44949 EST. PATIENT, LEVEL III Diagnosis: Cellulitis of right leg[ICD9: 682.6] Diagnosis: OPEN WND KNEE/LEG/ANKLE[ICD9: 891.0] Rika Motta MD, [facility] CPT-4: 70300 12/12/2013 ([id number]) 14678 EST. PATIENT, LEVEL IV Diagnosis: Asthma exacerbation[ICD9: 493.92] Diagnosis: COUGH[ICD9: 786.2] Diagnosis: EDEMA[ICD9: 782.3] Rika Motta MD, [facility] CPT-4: 13402 11/14/2013 ([id number]) 61791 EST. PATIENT, LEVEL III Diagnosis: OPEN WND KNEE/LEG/ANKLE[ICD9: 891.0] Diagnosis: EDEMA[ICD9: 782.3] Rika Motta MD, [facility] CPT-4: 50741 10/21/2013 ([id number]) 71484 EST. PATIENT, LEVEL IV Diagnosis: ESSENTIAL HYPERTENSION[SNOMED: 22699262] Diagnosis: Right knee pain[ICD9: 719.46] Diagnosis: OPEN WND KNEE/LEG/ANKLE[ICD9: 891.0] Rika Motta MD, [facility] CPT-4: 34140 10/03/2013 ([id number]) Miscellaneous no charge Diagnosis: Open wound of leg[ICD9: 891.0] Rika Motta MD, [facility] CPT-4: 41877 09/27/2013 03174 EST. PATIENT, LEVEL II Diagnosis: Open wound of leg[ICD9: 891.0] Diagnosis: Wrist pain, left[ICD9: 719.43] Rika Motta MD, [facility] CPT-4: 91653 09/23/2013 ([id number]) 76476 EST. PATIENT, LEVEL IV Diagnosis: CELLULITIS OF LEG[ICD9: 682.6] Diagnosis: ESSENTIAL HYPERTENSION[SNOMED: 70143745] Diagnosis: EDEMA[ICD9: 782.3] Rika Motta MD, [facility] CPT-4: 33790 09/20/2013 ([id number]) 68831 EST. PATIENT, LEVEL IV Diagnosis: Open wound of right lower leg[ICD9: 891.0] Diagnosis: DM W/O COMPLICATION TYPE II, UNCONTROLLED[SNOMED: 50279087] Diagnosis: Edema[ICD9: 782.3] Rika Motta MD, [facility] CPT-4: 15678 09/10/2013 ([id number]) 98159 EST. PATIENT, LEVEL III Diagnosis: DM W/O COMPLICATION TYPE II, UNCONTROLLED[SNOMED: 72709766] Diagnosis: EDEMA[ICD9: 782.3] Tessie Motta MD, [facility] CPT-4: 84956 08/19/2013 ([id number]) 60884 EST. PATIENT, LEVEL IV Diagnosis: EDEMA[ICD9: 782.3] Diagnosis: DIABETES TYPE II[SNOMED: 191118802] Diagnosis: HYPOTHYROIDISM[ICD9: 244.9] Diagnosis: LUMBAGO[ICD9: 724.2] Diagnosis: SCIATICA[ICD9: 724.3] Tessie Motta MD, [facility] CPT-4: 13892 08/12/2013 ([id number]) 49485 EST. PATIENT, LEVEL IV Diagnosis: DIABETES TYPE II[SNOMED: 383731007] Diagnosis: EDEMA[ICD9: 782.3] Diagnosis: HYPOTHYROIDISM[ICD9: 244.9] Diagnosis: Encounter for long-term (current) use of other medications[ICD9: V58.69] Diagnosis: LUMBAGO[ICD9: 724.2] Rika Motta MD, [facility] CPT-4: 57752 08/01/2013 ([id number]) 40176 EST. PATIENT, LEVEL III Diagnosis: Blister of right foot[ICD9: 917.2] Rika Motta MD [facility] CPT-4: 01318 07/19/2013 ([id number]) 85712 EST. PATIENT, LEVEL III Diagnosis: Cellulitis of right leg[ICD9: 682.6] Diagnosis: ESSENTIAL HYPERTENSION[SNOMED: 20786279] Diagnosis: EDEMA[ICD9: 782.3] Rika Motta MD, [facility] CPT-4: 28192 07/15/2013 ([id number]) 84316 EST. PATIENT, LEVEL IV Diagnosis: DIABETES TYPE II[SNOMED: 092999311] Diagnosis: BACKACHE[ICD9: 724.5] Diagnosis: Muscle spasms of neck[ICD9: 728.85] Tessie Motta MD, [facility] CPT-4: 28906 06/27/2013 ([id number]) 35455 EST. PATIENT, LEVEL IV Diagnosis: DM W/O COMPLICATION TYPE II, UNCONTROLLED[SNOMED: 13954156] Diagnosis: EDEMA[ICD9: 782.3] Diagnosis: OBESITY[ICD9: 278.00] Diagnosis: WHEEZING[ICD9: 786.07] Tessie Motta MD, [facility] CPT-4: 38455 06/10/2013 ([id number]) 68637 EST. PATIENT, LEVEL IV Diagnosis: CHRONIC SINUSITIS[ICD9: 473.9] Diagnosis: WHEEZING[ICD9: 786.07] Diagnosis: ACUTE BRONCHITIS[ICD9: 466.0] Diagnosis: Back pain[ICD9: 724.5] Tessie Motta MD, [facility] CPT-4: 42303 05/07/2013 ([id number]) 90324 EST. PATIENT, LEVEL IV Diagnosis: EDEMA[ICD9: 782.3] Diagnosis: COPD (chronic obstructive pulmonary disease) with acute bronchitis[ ICD9: 491.22] Tessie Motta MD, [facility] CPT-4: 57371 04/16/2013 ([id number]) 32614 EST. PATIENT, LEVEL IV Diagnosis: Lumbago[ICD9: 724.2] Diagnosis: DM W/O COMPLICATION TYPE II, UNCONTROLLED[SNOMED: 54922661] Diagnosis: EDEMA[ICD9: 782.3] Rika Motta MD, [facility] CPT-4: 27309 03/21/2013 ([id number]) 45373 EST. PATIENT, LEVEL IV Diagnosis: Abdominal pain[ICD9: 789.00] Diagnosis: EDEMA[ICD9: 782.3] Diagnosis: DIABETES TYPE II[SNOMED: 234783363] Tessie Motta MD, [facility] CPT-4: 10774 02/12/2013 ([id number]) 36831 EST. PATIENT, LEVEL III Diagnosis: EDEMA[ICD9: 782.3] Diagnosis: RESPIRATORY ABNORM NEC[ICD9: 786.09] Tessie Motta MD, [facility] CPT-4: 76821 02/04/2013 ([id number]) 49636 EST. PATIENT, LEVEL IV Diagnosis: Edema[ICD9: 782.3] Diagnosis: ESSENTIAL HYPERTENSION[SNOMED: 30204311] Tessie Motta MD, [facility] CPT-4: 11934 01/17/2013 ([id number]) 48760 EST. PATIENT, LEVEL IV Diagnosis: ESSENTIAL HYPERTENSION[SNOMED: 28214494] Diagnosis: Diabetic leg ulcer[ICD9: 250.80] Diagnosis: Callus[ICD9: 700] Diagnosis: Urinary urgency[ICD9: 788.63] Diagnosis: HYPOTHYROIDISM[ICD9: 244.9] Rika Motta MD, [facility] CPT-4: 82822 12/31/2012 ([id number]) 19264 EST. PATIENT, LEVEL IV Diagnosis: Cellulitis of left leg[ICD9: 682.6] Diagnosis: DIABETES TYPE II[SNOMED: 041288543] Diagnosis: ESSENTIAL HYPERTENSION[SNOMED: 50014899] Diagnosis: EDEMA[ICD9: 782.3] Rika Motta MD [facility] CPT-4: 51383 12/20/2012 ([id number]) 85951 EST. PATIENT, LEVEL III Diagnosis: Acute bronchitis[ICD9: 466.0] Diagnosis: COUGH[ICD9: 786.2] Tessie Motta MD [facility] CPT-4: 82757 10/29/2012 ([id number]) 72942 EST. PATIENT, LEVEL IV Diagnosis: ESSENTIAL HYPERTENSION[SNOMED: 00441128] Diagnosis: DIABETES TYPE II[SNOMED: 435829024] Diagnosis: HYPOTHYROIDISM[ICD9: 244.9] Tessie Motta MD [facility] CPT- 4: 87430 09/06/2012 ([id number]) 39177 EST. PATIENT, LEVEL IV Diagnosis: DIABETES TYPE II[SNOMED: 641394156] Diagnosis: ESSENTIAL HYPERTENSION[SNOMED: 16446144] Diagnosis: Diarrhea[ICD9: 787.91] Tessie Motta MD [facility] CPT-4: 88612 08/23/2012 ([id number]) 76584 EST. PATIENT, LEVEL III Diagnosis: ESSENTIAL HYPERTENSION[SNOMED: 67900496] Diagnosis: Gastroenteritis[ICD9: 558.9] Rika Motta MD [facility] CPT-4: 48848 08/13/2012 (04343) 74174 EST. PATIENT, LEVEL IV Diagnosis: Diarrhea[ICD9: 787.91] Diagnosis: ESSENTIAL HYPERTENSION[SNOMED: 82327043] Diagnosis: DM W/O COMPLICATION TYPE II, UNCONTROLLED[SNOMED: 90833226] Rika Motta MD [facility] CPT-4: 81575 08/07/2012 ([id number]) 39482 EST. PATIENT, LEVEL III Diagnosis: Acute sinusitis[ICD9: 461.9] Diagnosis: Thrush[ICD9: 112.0] Rika Motta MD [facility] CPT-4: 77788 07/06/2012 ([id number]) 40045 EST. PATIENT, LEVEL IV Diagnosis: ESSENTIAL HYPERTENSION[SNOMED: 35756827] Diagnosis: DIABETES TYPE II[SNOMED: 503824815] Tessie Motta MD, [facility] CPT-4: 97350 06/07/2012 (68204) 34684 EST. PATIENT, LEVEL IV Diagnosis: ESSENTIAL HYPERTENSION[SNOMED: 10284620] Diagnosis: ACUTE SINUSITIS[ICD9: 461.9] Diagnosis: Labial cyst[ICD9: 624.8] Tessie Motta MD [facility] CPT-4: 26823 05/28/2012 ([id number]) 58372 EST. PATIENT, LEVEL IV Diagnosis: ESSENTIAL HYPERTENSION[SNOMED: 13060181] Diagnosis: EDEMA[ICD9: 782.3] Tessie Motta MD [facility] CPT-4: 80794 05/17/2012 ([id number]) 26123 EST. PATIENT, LEVEL IV Diagnosis: EDEMA[ICD9: 782.3] Diagnosis: ESSENTIAL HYPERTENSION[SNOMED: 82801624] Diagnosis: Diarrhea[ICD9: 787.91] Diagnosis: ALLERGIC RHINITIS[ICD9: 477.9] Tessie Motta MD [facility] CPT- 4: 64030 05/02/2012 ([id number]) 68555 EST. PATIENT, LEVEL IV Diagnosis: ACUTE SINUSITIS[ICD9: 461.9] Diagnosis: ESSENTIAL HYPERTENSION[SNOMED: 97893882] Diagnosis: ALLERGIC RHINITIS[ICD9: 477.9] Tessie Motta MD [facility] CPT- 4: 34181 04/10/2012 ([id number]) 99663 EST. PATIENT, LEVEL IV Diagnosis: ESSENTIAL HYPERTENSION[SNOMED: 31071011] Diagnosis: Foreign body in foot or toe[ICD9: 917.6] Diagnosis: EDEMA[ICD9: 782.3] Tessie Motta MD [facility] CPT-4: 59231 02/27/2012 ([id number]) 54103 EST. PATIENT, LEVEL IV Diagnosis: CELLULITIS OF FOOT[ICD9: 682.7] Diagnosis: DIABETES TYPE II[SNOMED: 822497936] Diagnosis: EDEMA[ICD9: 782.3] Tessie Motta MD [facility] CPT-4: 79696 02/15/2012 (03204) 18466 EST. PATIENT, LEVEL IV Diagnosis: EDEMA[ICD9: 782.3] Diagnosis: ESSENTIAL HYPERTENSION[SNOMED: 64561710] Diagnosis: ACUTE SINUSITIS[ICD9: 461.9] Diagnosis: Dysuria[ICD9: 788.1] Tessie Motta MD [facility] CPT-4: 65048 02/01/2012 ([id number]) 33517 EST. PATIENT, LEVEL IV Diagnosis: DIABETES TYPE II[SNOMED: 299319290] Diagnosis: Diverticulitis[ICD9: 562.11] Tessie Motta MD [facility] CPT- 4: 65443 12/14/2011 ([id number]) 53990 EST. PATIENT, LEVEL IV Diagnosis: Nausea vomiting and diarrhea[ICD9: 787.01] Diagnosis: ESSENTIAL HYPERTENSION[SNOMED: 27955473] Diagnosis: DM W/O COMPLICATION TYPE II, UNCONTROLLED[SNOMED: 10317560] BENNETT Altman MD CPT-4: 69535 11/30/2011 ([id number]) 63565 EST. PATIENT, LEVEL IV Diagnosis: ESSENTIAL HYPERTENSION[SNOMED: 48729990] Diagnosis: DIABETES TYPE II[SNOMED: 888645899] Diagnosis: COUGH[ICD9: 786.2] Tessie Motta MD [facility] CPT-4: 06984 11/17/2011 ([id number]) Patient admitted to the hospital from clinic (NO CHARGE) Diagnosis: Tachycardia[ICD9: 785.0] Diagnosis: Dyspnea[ICD9: 786.09] Diagnosis: Wheezing[ICD9: 786.07] Diagnosis: FALL AGAINST OBJECT[ICD9: E888.1] Diagnosis: ANXIETY STATE[ICD9: 300.00] Diagnosis: ESSENTIAL HYPERTENSION[SNOMED: 16816205] Diagnosis: Chronic depression[ICD9: 311] Diagnosis: Diabetes mellitus type 2, uncontrolled[SNOMED: 61626208] Tessie Motta MD [facility] CPT-4: 69065X 11/03/2011 ([id number]) 44677 EST. PATIENT, LEVEL IV Diagnosis: DIABETES TYPE II[SNOMED: 096946675] Diagnosis: ANXIETY STATE[ICD9: 300.00] Diagnosis: DEPRESSIVE DISORDER NEC[ICD9: 311] Diagnosis: Ulcer of toe[ICD9: 707.15] [facility] CPT- 4: 25114 10/24/2011 ([id number]) 62888 EST. PATIENT, LEVEL IV Diagnosis: EDEMA[ICD9: 782.3] Diagnosis: ESSENTIAL HYPERTENSION[SNOMED: 33140671] Diagnosis: ANXIETY STATE[ICD9: 300.00] Tessie Motta MD [facility] CPT- 4: 45714 09/26/2011 25862 EST. PATIENT, LEVEL IV Diagnosis: EDEMA[ICD9: 782.3] Diagnosis: ESSENTIAL HYPERTENSION[SNOMED: 28919967] Rika Motta MD, [facility] CPT-4: 73481 09/20/2011 ([id number]) 96264 EST. PATIENT, LEVEL IV Diagnosis: ACUTE SINUSITIS[ICD9: 461.9] Diagnosis: Allergic rhinitis[ICD9: 477.9] Diagnosis: Cough[ICD9: 786.2] Tessie Motta MD, [facility] CPT-4: 48818 09/01/2011 ([id number]) 67853 EST. PATIENT, LEVEL IV Diagnosis: Chronic sinusitis[ICD9: 473.9] Diagnosis: Anxiety, generalized[ICD9: 300.02] Tessie Motta MD, [facility] CPT-4: 56932 08/15/2011 58115 EST. PATIENT, LEVEL IV Diagnosis: ACUTE SINUSITIS[ICD9: 461.9] Diagnosis: Tachycardia[ICD9: 785.0] Diagnosis: Anxiety[ICD9: 300.00] Diagnosis: Dehydration[ICD9: 276.51] Diagnosis: Sciatica[ICD9: 724.3] Tessie Motta MD, [facility] CPT-4: 79537 08/09/2011 59744 EST. PATIENT, LEVEL IV Diagnosis: DIABETES TYPE II[SNOMED: 025202532] Diagnosis: Sciatica[ICD9: 724.3] Diagnosis: Yeast infection[ICD9: 112.9] Tessie Motta MD, [facility] CPT- 4: 27222 08/01/2011 ([id number]) 22080 EST. PATIENT, LEVEL IV Diagnosis: DIABETES TYPE II[SNOMED: 201238573] Diagnosis: ACUTE MAXILLARY SINUSITIS[ICD9: 461.0] Diagnosis: Fibromyalgia[ICD9: 729.1] [facility] CPT-4: 21066 06/20/2011 [id number] EST. PATIENT, LEVEL IV Diagnosis: ESSENTIAL HYPERTENSION[SNOMED: 18288349] Diagnosis: DIABETES TYPE II[SNOMED: 199812236] Diagnosis: ACUTE MAXILLARY SINUSITIS[ICD9: 461.0] [facility] CPT-4: 18545 04/18/2011 Plan of Care Planned Activity Notes Codes Status Date Appointment: Rika Bello WPtel: [phone] [place] (30 min) Complex 03/20/2018 Appointment: Rika Bello WPtel: [phone] [place] (15 min) Moderate 03/12/2018 Patient Education: Patient Medication Summary Completed 03/12/2018 Patient Education: Back Pain Completed 03/12/2018 Appointment: Rika Bello WPtel: [address] [place], [place] [phone] [place] (30 min) Complex 03/08/2018 Appointment: Lab Draw 02/22/2018 Patient Education: Patient Medication Summary Completed 02/22/2018 Appointment: Rika Bello WPtel: [address] [place], [place] [phone] [place] (15 min) Moderate 02/20/2018 Patient Education: Patient Medication Summary Completed 02/20/2018 Patient Education: Patient Medication Summary Completed 02/20/2018 Patient Education: Back Pain Completed 02/20/2018 Care Plan: Iron Pending 02/20/2018 Appointment: Rika Bello WPtel: [phone] [place] (30 min) Complex 02/19/2018 Appointment: Rika Bello WPtel: [address] [place], [place] [phone] [place] (15 min) Moderate 02/01/2018 Appointment: Lab Draw 12/14/2017 Patient Education: Patient Medication Summary Completed 12/14/2017 [facility] [phone] [phone] [place] (15 min) Moderate 11/27/2017 Patient Education: Patient Medication Summary Completed 11/27/2017 Patient Education: Patient Medication Summary Completed 10/27/2017 Care Plan: SCREENINGMAMMOGRAPHYDIGITAL LOINC : 76869-6 Pending 10/27/2017 Appointment: [facility] [phone] [facility] [place] (15 min) Moderate 10/03/2017 Appointment: [facility] [phone] [facility] [place] (15 min) Moderate 10/02/2017 Appointment: Rika Bello WPtel: [phone] [phone] [place] (30 min) Complex 09/29/2017 Appointment: Arlette Skelton WPtel: [facility] [place] ([place] min) Complex 09/27/2017 Patient Education: Patient Medication Summary Completed 09/27/2017 Care Plan: CT HEAD/BRAIN W/O DYE LOINC : 35486-1 Pending 09/27/2017 App[facility]ment: [phone] [place] ([place] min) Complex 09/15/2017 Patient Education: Patient Medication Summary Completed 09/15/2017 Appointment: [facility]ello [facility]el[facility] [phone] [place] ([place]) Complex 09/12/2017 Appointment: [facility]Ptel[phone] [phone] [place] ([place]) Complex 09/07/2017 Appointment: Rika Bello WPtel: [address] [phone] [place] (30 min) Complex 08/18/2017 Patient Education: Patient Medication Summary Completed 08/18/2017 Appointment: [facility]el[phone] [phone] [place] ([place]) Complex 08/03/2017 Patient Education: Patient Medication Summary Completed 08/03/2017 Appointment: [facility]ello [facility]Ptel: [facility] [phone] [place] ([place]) Complex 07/27/2017 Patient Education: Patient Medication Summary Completed 07/27/2017 Appointment: Lab Draw 06/30/2017 Patient Education: Patient Medication Summary Completed 06/30/2017 Appointment: [facility]el[facility] [place] (15 min) Moderate 06/13/2017 Patient Education: Patient Medication Summary Completed 06/13/2017 Appointment: Arlette Skelton WPtel: [facility] [facility] [place] ([place]) Complex 04/21/2017 Patient Education: Patient Medication Summary Completed 04/21/2017 Patient Education: Obesity Completed 04/21/2017 Appointment: Rika Bello WPtel: [address] [phone] [place] ([place]) Complex 04/18/2017 Patient Education: Patient Medication Summary Completed 04/18/2017 Appointment: R[facility] Bello WPtel: [phone] [phone] [place] ([place]) Complex 03/27/2017 Patient Education: Patient Medication Summary Completed 03/27/2017 Appointment: [facility] Bello WPtel: [address] [phone] [place] ([place]) Complex 03/24/2017 Appointment: Rika Bello WPtel: [phone] [phone] [place] ([place]) Complex 02/27/2017 Patient Education: Patient Medication Summary Completed 02/27/2017 Patient Education: Hypertension Completed 02/27/2017 Patient Education: Patient Medication Summary Completed 02/24/2017 Appointment: Rika Bello WPtel: [phone] [phone] [place] ([place]) Complex 02/21/2017 Patient Education: Patient Medication Summary Completed 02/21/2017 Appointment: Rika Bello WPtel: [phone] [phone] [place] ([place]) Complex 02/20/2017 Appointment: Rika Bello WPtel: [phone] [phone] [place] (30 min) Complex 02/17/2017 Patient Education: Patient Medication Summary Completed 02/17/2017 Appointment: Rika Bello WPtel: [phone] [place] (30 min) Complex 02/13/2017 Patient Education: Patient Medication Summary Completed 02/13/2017 Patient Education: Hypertension Completed 02/13/2017 Appointment: Rika Bello WPtel: [phone] [place] ([place]) Complex 01/30/2017 Patient Education: Patient Medication Summary Completed 01/30/2017 Care Plan: Referral Order SNOMED-CT : 790891679 Pending 01/30/2017 Appointment: Rika Bello WPtel: [phone] [place] ([place]) Complex 01/16/2017 Patient Education: Patient Medication Summary Completed 01/16/2017 Appointment: R[facility] Bello WPtel: [phone] [phone] [place] ([place]) Complex 01/10/2017 Appointment: Arlette Skelton WPtel: [phone] [facility] [place] ([place]) Complex 12/13/2016 Patient Education: Patient Medication Summary Completed 12/13/2016 Appointment: Lab Draw 11/25/2016 Patient Education: Patient Medication Summary Completed 11/25/2016 Appointment: R[facility] Bello WPtel: [phone] (30 min) Complex 11/11/2016 Patient Education: Patient Medication Summary Completed 11/11/2016 Care Plan: BMI Above normal followup SELF-MGMT EDUC & TRAIN 1 PT Pending 2016 Appointment: Rika Bello WPtel: [phone] [place] ([place]) Complex 11/08/2016 Appointment: Rika Bello WPtel: [phone] [place] (30 min) Complex 10/28/2016 Patient Education: Patient Medication Summary Completed 10/28/2016 Patient Education: Obesity Completed 10/28/2016 Appointment: Rika Bello WPtel: [phone] (30 min) Complex 10/25/2016 Appointment: Lab Draw 10/21/2016 Patient Education: Patient Medication Summary Completed 10/21/2016 Appointment: Rika Bello WPtel: [phone] [place] (30 [place]) Complex 10/13/2016 Patient Education: Patient Medication Summary Completed 10/13/2016 Appointment: Rika Bello WPtel: [address] [place], [place] [phone] (30 min) Complex 10/11/2016 Appointment: Rika Bello WPtel: [address] [place] [phone] [place] MCR - Annual Wellness Visit 10/04/2016 Appointment: Rika Bello WPtel: [phone] [place] (15 min) Moderate 09/23/2016 Patient Education: Patient Medication Summary Completed 09/23/2016 Patient Education: Patient Medication Summary Completed 09/13/2016 Patient Education: Obesity Completed 09/13/2016 Patient Education: .Cervicalgia Neck Pain Completed 09/13/2016 Care Plan: Referral Order SNOMED-CT : [id number] Pending 09/13/2016 Appointment: Rika Bello WPtel: [phone] [phone] [place] (30 [place]) Complex 09/09/2016 Appointment: Rika Bello WPtel: [phone] [phone] [place] (30 [place]) Complex 09/08/2016 Appointment: Rika Bello WPtel: [phone] [phone] [place] (30 [place]) Complex 08/09/2016 Patient Education: Patient Medication Summary Completed 08/09/2016 Patient Education: Hypertension Completed 08/09/2016 Appointment: Rika Bello WPtel: [phone] [phone] [place] ([place]) Complex 07/26/2016 Patient Education: Patient Medication Summary Completed 07/26/2016 Appointment: Rika Bello WPtel: [address] [phone] [place] ([place]) Complex 07/22/2016 Appointment: Rika Bello WPtel: [address] [phone] [place] (30 [place]) Complex 07/18/2016 Appointment: Rika Bello WPtel: [address] [phone] [place] ([place]) Complex 07/01/2016 Appointment: Lab Draw 06/24/2016 Patient Education: Patient Medication Summary Completed 06/24/2016 Appointment: Rika Bello WPtel: [phone] [phone] [place] (30 min) Complex 2016 Patient Education: Patient Medication Summary Completed 05/24/2016 Patient Education: Obesity Completed 05/24/2016 Appointment: Rika Bello WPtel: [phone] [phone] [place] ([place]) Complex 05/17/2016 Appointment: Rika Bello WPtel: [phone] [phone] [place] (30 [place]) Complex 04/19/2016 Patient Education: Patient Medication Summary Completed 04/19/2016 Patient Education: Obesity Completed 04/19/2016 Appointment: Rika Bello WPtel: [phone] [phone] [place] (30 [place]) Complex 04/18/2016 Appointment: Rika Bello WPtel: [phone] [phone] [place] (30 [place]) Complex 04/11/2016 Patient Education: Patient Medication Summary Completed 04/11/2016 Patient Education: Obesity Completed 04/11/2016 Appointment: Rika Bello WPtel: [phone] [phone] [place] (30 [place]) Complex 04/08/2016 Patient Education: Patient Medication Summary Completed 03/21/2016 Patient Education: Obesity Completed 03/21/2016 Appointment: Rika Bello WPtel: [phone] [phone] [place] (30 min) Complex 03/11/2016 Patient Education: Patient Medication Summary Completed 03/11/2016 Patient Education: Obesity Completed 03/11/2016 Care Plan: Comp Metabolic Cancelled 03/11/2016 Care Plan: Cbc With Differential Cancelled 03/11/2016 Appointment: Rika Bello WPtel: [phone] [phone] [place] (30 [place]) Complex 02/26/2016 Patient Education: Patient Medication Summary Completed 02/26/2016 Appointment: Rika Bello WPtel: [phone] [phone] [place] (30 min) Complex 02/25/2016 Appointment: Rika Bello WPtel: [phone] [phone] [place] (30 [place]) Complex 02/23/2016 Appointment: Lab Draw 02/10/2016 Patient Education: Patient Medication Summary Completed 02/10/2016 Appointment: Rika Bello WPtel: [phone] [phone] (30 min) Complex 02/02/2016 Patient Education: Patient Medication Summary Completed 02/02/2016 Appointment: Tessie Motta [facility]Ptel: [facility] (15 min) Moderate 01/21/2016 Appointment: Rika Bello WPtel: [phone] [phone] (30 min) Complex 01/14/2016 Patient Education: Patient Medication Summary Completed 12/17/2015 Appointment: Rika Bello WPtel: [phone] [phone] (30 min) Complex 12/08/2015 Appointment: Rika Bello WPtel: [facility]5 [phone] (15 min) Moderate 12/08/2015 Patient Education: Patient Medication Summary Completed 12/08/2015 Care Plan: [facility]TE [facility] 35704-5 Pending 12/08/2015 Patient Education: Patient Medication Summary Completed 11/27/2015 Referral: Mimi Mejia Referral Initiated 11/12/2015 Patient Education: Patient Medication Summary Completed 11/12/2015 Care Plan: BMI NOT CALCULATED Pending 11/11/2015 Patient Education: Patient Medication Summary Completed 11/10/2015 Appointment: Lab Draw 11/02/2015 Patient Education: Patient Medication Summary Completed 11/02/2015 Appointment: Rika Bello WPtel: [phone] [phone] [place] (30 min) Complex 10/27/2015 Patient Education: Patient Medication Summary Completed 10/27/2015 Patient Education: Obesity Completed 10/27/2015 Care Plan: Referral Order SNOMED-CT : [id number] Pending 10/27/2015 Referral: Matt Pavon HPtel:[phone] [facility] [place] Referral Initiated 10/21/2015 Appointment: Rika Bello WPtel: [phone] [phone] [facility] - Welcome to Medicare visit 09/29/2015 Patient Education: Patient Medication Summary Completed 09/29/2015 Patient Education: Obesity Completed 09/29/2015 Care Plan: Referral Order SNOMED-CT : [id number] Pending 09/29/2015 Care Plan: BMI Above normal followup SELF-MGMT EDUC & TRAIN 1 PT Pending 2015 Patient Education: Patient Medication Summary Completed 09/22/2015 Patient Education: Obesity Completed 09/22/2015 Appointment: (30 min) Complex 09/01/2015 Patient Education: Patient Medication Summary Completed 09/01/2015 Patient Education: Obesity Completed 09/01/2015 Patient Education: Hypertension Completed 09/01/2015 Appointment: (30 min) Complex 08/31/2015 Appointment: (15 min) Moderate 08/14/2015 Appointment: Lab Draw 08/13/2015 Appointment: MCR - Welcome to Medicare visit 08/10/2015 Patient Education: Patient Medication Summary Completed 08/10/2015 Patient Education: Obesity Completed 08/10/2015 Patient Education: Hypertension Completed 08/10/2015 Care Plan: BMI Above normal followup SELF-MGMT EDUC & TRAIN 1 PT Ordered 2015 Appointment: (30 min) Complex 07/24/2015 Appointment: Lab Draw 07/20/2015 Patient Education: Patient Medication Summary Completed 07/20/2015 Appointment: (30 min) Complex 06/26/2015 Patient Education: Patient Medication Summary Completed 06/26/2015 Appointment: (30 min) Complex 06/25/2015 Appointment: (30 min) Complex 05/05/2015 Appointment: Rika Bello WPtel: [phone] (30 min) Complex 04/27/2015 Patient Education: Patient Medication Summary Completed 04/14/2015 Patient Education: Hypertension Completed 04/14/2015 Appointment: (30 min) Complex 04/10/2015 Appointment: (30 min) Complex 03/31/2015 Appointment: (30 min) Complex 03/03/2015 Patient Education: Patient Medication Summary Completed 03/03/2015 Patient Education: Hypertension Completed 03/03/2015 Appointment: Rika Bello WPtel: [phone] [phone] (30 min) Complex 02/24/2015 Appointment: (30 min) Complex 01/29/2015 Appointment: Tessie Motta WPtel: [facility]5 [facility] (15 min) Moderate 01/22/2015 Appointment: (15 min) Moderate 01/15/2015 Patient Education: Patient Medication Summary Completed 01/15/2015 Appointment: Tessie Motta WPtel: [facility]5 [facility] (15 min) Moderate 01/01/2015 Patient Education: Patient Medication Summary Completed 01/01/2015 Appointment: (30 min) Complex 12/25/2014 Patient Education: Patient Medication Summary Completed 12/25/2014 Appointment: Lab Draw 11/05/2014 Patient Education: Patient Medication Summary Completed 11/05/2014 Appointment: (30 min) Complex 11/04/2014 Patient Education: Patient Medication Summary Completed 11/04/2014 Patient Education: Hypertension Completed 11/04/2014 Care Plan: COMPLETE CBC AUTOMATED LOINC : 89360-6 Ordered 11/04/2014 Care Plan: URINALYSIS NONAUTO W/O SCOPE LOINC : 07311-2 Ordered 11/04/2014 Appointment: Follow up 10/07/2014 Patient Education: Patient Medication Summary Completed 09/08/2014 Appointment: Follow up 08/29/2014 Patient Education: Patient Medication Summary Completed 08/29/2014 Patient Education: Hypertension Completed 08/29/2014 Appointment: Follow up 06/30/2014 Patient Education: Patient Medication Summary Completed 06/30/2014 Appointment: Follow up 06/24/2014 Appointment: Rika Bello WPtel: [phone] Follow up 06/12/2014 Patient Education: Patient Medication Summary Completed 06/12/2014 Patient Education: .Amazing charts Exercise for Sciatica Completed 06/12/2014 Care Plan: COMPLETE CBC AUTOMATED LOINC : 47239-5 Ordered 06/12/2014 Appointment: Follow up 05/26/2014 Patient Education: Patient Medication Summary Completed 05/26/2014 Appointment: Tessie Motta WPtel: [facility] Lab Draw 04/21/2014 Patient Education: Patient Medication Summary Completed 04/21/2014 Appointment: Follow up 04/15/2014 Patient Education: Patient Medication Summary Completed 04/15/2014 Appointment: Follow up 03/25/2014 Patient Education: Patient Medication Summary Completed 03/25/2014 Appointment: Follow up 03/21/2014 Appointment: Follow up 03/17/2014 Appointment: Follow up 03/03/2014 Patient Education: Patient Medication Summary Completed 03/03/2014 Patient Education: Hypertension Completed 03/03/2014 Appointment: Tessie Motta WPtel: [facility] Follow up 02/13/2014 Patient Education: Patient Medication Summary Completed 02/13/2014 Patient Education: Hypertension Completed 02/13/2014 Appointment: Tessie Motta WPtel: [facility] Follow up 01/27/2014 Patient Education: Patient Medication Summary Completed 01/27/2014 Appointment: Rika Bello WPtel: [phone] Follow up 01/02/2014 Appointment: Follow up 12/26/2013 Patient Education: Patient Medication Summary Completed 12/26/2013 Appointment: Tessie Motta WPtel: [facility] Follow up 12/24/2013 Appointment: Rika Bello WPtel: [facility]5 [phone] Other 12/12/2013 Patient Education: Patient Medication Summary Completed 12/12/2013 Appointment: Tessie Motta WPtel: [facility] Follow up 11/20/2013 Appointment: Tessie Motta WPtel: [facility] Lab Draw 11/18/2013 Patient Education: Patient Medication Summary Completed 11/18/2013 Appointment: Sick 11/14/2013 Patient Education: Patient Medication Summary Completed 11/14/2013 Appointment: Rika Bello WPtel: [address] [place], [place] [phone] [place] [address] Follow up 10/21/2013 Patient Education: Patient Medication Summary Completed 10/21/2013 Appointment: Rika Bello WPtel: [address] [place], [place] [phone] Follow up 10/17/2013 Appointment: Tessie Motta WPtel: [address] [place], [place] [phone] Follow up 10/10/2013 Appointment: Rika Bello WPtel: [address] [place], [place] [id number] [place] [address] Follow up 10/03/2013 Patient Education: Patient Medication Summary Completed 10/03/2013 Patient Education: Hypertension Completed 10/03/2013 Patient Education: Patient Medication Summary Completed 09/27/2013 Appointment: Tessie Motta WPtel: [address] [place], [place] [phone] Nurse Visit 09/23/2013 Patient Education: Patient Medication Summary Completed 09/23/2013 Appointment: Rika Bello WPtel: [address] [place], [place] [id number] Follow up 09/20/2013 Patient Education: Patient Medication Summary Completed 09/20/2013 Patient Education: Hypertension Completed 09/20/2013 Appointment: Tessie Motta WPtel: [address] [place], [place] [phone] Follow up 09/16/2013 Appointment: Rika Bello WPtel: [address] [place] [phone] Other 09/10/2013 Patient Education: Patient Medication Summary Completed 09/10/2013 Appointment: Rika Bello WPtel: [address] [place], [place] [phone] Follow up 09/02/2013 Appointment: Rika Bello WPtel: [phone] Other 08/19/2013 Patient Education: Patient Medication Summary Completed 08/19/2013 Patient Education: Patient Medication Summary Completed 08/12/2013 Appointment: Rika Bello WPtel: [facility]5 [phone] [place] Follow up 08/01/2013 Patient Education: Patient Medication Summary Completed 08/01/2013 Appointment: Rika Bello WPtel: [facility]5 [phone] [place] Follow up 07/25/2013 Appointment: Tessie Motta WPtel: [address] [place], [place] [address] Follow up 07/25/2013 Appointment: Rika Bello WPtel: [facility]5 [phone] [place] Other 07/19/2013 Patient Education: Patient Medication Summary Completed 07/19/2013 Appointment: Rika Bello WPtel: [phone] [place] Other 07/15/2013 Patient Education: Patient Medication Summary Completed 07/15/2013 Patient Education: Hypertension Completed 07/15/2013 Appointment: Rika Bello WPtel: [phone] [place] Follow up 07/01/2013 Appointment: Rika Bello WPtel: [address] [place], [place] [phone] [place] Lab Draw 06/28/2013 Patient Education: Patient Medication Summary Completed 06/28/2013 Appointment: Tessie Motta WPtel: [address] [place], [place] [address] Other 06/27/2013 Patient Education: Patient Medication Summary Completed 06/27/2013 Appointment: Tsesie Motta WPtel: [address] [place], [place] [address] [place] Other 06/24/2013 Appointment: Tessie Motta WPtel: [facility] [place] Follow up 06/10/2013 Patient Education: Patient Medication Summary Completed 06/10/2013 Appointment: Tessie Motta WPtel: [facility]5 [facility] Follow up 06/06/2013 Appointment: Tessie Motta WPtel: [facility] Follow up 05/07/2013 Patient Education: Patient Medication Summary Completed 05/07/2013 Appointment: Tessie Motta WPtel: [facility] Follow up 04/30/2013 Appointment: Tessie Motta WPtel: [address] [place], [place] [phone] Follow up 04/16/2013 Patient Education: Patient Medication Summary Completed 04/16/2013 Appointment: Tessie Motta WPtel: [address] [place] [address] Follow up 04/04/2013 Appointment: Rika Bello WPtel: [address] [place], [place] [phone] Follow up 03/21/2013 Patient Education: Patient Medication Summary Completed 03/21/2013 Appointment: Tessie Motta WPtel: [facility]5 [facility] Follow up 03/20/2013 Appointment: Tessie Motta WPtel: [address] [place] [address] Follow up 03/05/2013 Appointment: Rika Bello WPtel: [phone] [facility] follow up 02/12/2013 Patient Education: Patient Medication Summary Completed 02/12/2013 Appointment: Tessie Motta WPtel: [facility] Follow up 02/04/2013 Patient Education: Patient Medication Summary Completed 02/04/2013 Appointment: Rika Bello WPtel: [address] [place], [place] [phone] Follow up 01/17/2013 Patient Education: Patient Medication Summary Completed 01/17/2013 Patient Education: Hypertension Completed 01/17/2013 Appointment: Tessie Motta WPtel: [address] [place], [place] [phone] Follow up 01/16/2013 Appointment: Tessie Motta WPtel: [address] [place], [place] [phone] Follow up 01/10/2013 Appointment: Rika Bello WPtel: [address] [place], [place] [phone] Lab Draw 01/01/2013 Patient Education: Patient Medication Summary Completed 01/01/2013 Appointment: Rika Bello WPtel: [address] [place], [place] [phone] Follow up 12/31/2012 Appointment: Rika Bello WPtel: [address] [place], [place] [phone] Sick 12/31/2012 Patient Education: Patient Medication Summary Completed 12/31/2012 Patient Education: Hypertension Completed 12/31/2012 Appointment: Rika Bello WPtel: [address] [place], [place] [phone] [place] Sick 12/20/2012 Patient Education: Patient Medication Summary Completed 12/20/2012 Patient Education: Hypertension Completed 12/20/2012 Appointment: Tessie Motta WPtel: [address] [place], [place] [phone] Lab Draw 11/05/2012 Patient Education: Patient Medication Summary Completed 11/05/2012 Appointment: Tessie Motta WPtel: [address] [place] [address] Sick 10/29/2012 Patient Education: Patient Medication Summary Completed 10/29/2012 Appointment: Rika Bello WPtel: [phone] Follow up 09/21/2012 Patient Education: Patient Medication Summary Completed 09/21/2012 Appointment: Tessie Motta WPtel: [facility] Follow up 09/06/2012 Patient Education: Patient Medication Summary Completed 09/06/2012 Patient Education: Hypertension Completed 09/06/2012 Appointment: Tessie Motta WPtel: [address] [place], [place] [phone] Follow up 08/23/2012 Patient Education: Patient Medication Summary Completed 08/23/2012 Patient Education: Hypertension Completed 08/23/2012 Appointment: Rika Bello WPtel: [facility]5 [phone] Follow up 08/13/2012 Patient Education: Patient Medication Summary Completed 08/13/2012 Patient Education: Hypertension Completed 08/13/2012 Appointment: Rika Bello WPtel: [facility]5 [phone] [place] Other 08/07/2012 Patient Education: Patient Medication Summary Completed 08/07/2012 Patient Education: Hypertension Completed 08/07/2012 Appointment: Rika Bello WPtel: [id number] Lab Draw 07/19/2012 Patient Education: Patient Medication Summary Completed 07/19/2012 Appointment: Rika Bello WPtel: [id number] Sick 07/06/2012 Patient Education: Patient Medication Summary Completed 07/06/2012 Appointment: Tessie Motta WPtel: [address] [place], [place] [address] [place] Follow up 06/07/2012 Appointment: Tessie Motta WPtel: [facility] Follow up 06/07/2012 Patient Education: Patient Medication Summary Completed 06/07/2012 Patient Education: Hypertension Completed 06/07/2012 Appointment: Rika Bello WPtel: [facility] Follow up 05/28/2012 Patient Education: Patient Medication Summary Completed 05/28/2012 Patient Education: Hypertension Completed 05/28/2012 Appointment: Rika Bello WPtel: [id number] [facility] Follow UP 05/17/2012 Patient Education: Patient Medication Summary Completed 05/17/2012 Patient Education: Hypertension Completed 05/17/2012 Appointment: Tessie Motta WPtel: [facility]5 [facility] Follow up 05/02/2012 Patient Education: Patient Medication Summary Completed 05/02/2012 Patient Education: Hypertension Completed 05/02/2012 Appointment: Tessie Motta WPtel: [facility] Follow up 04/25/2012 Appointment: Rika Bello WPtel: [facility] Follow up 04/10/2012 Patient Education: Patient Medication Summary Completed 04/10/2012 Patient Education: High Blood Pressure: Essential Hypertension Completed 2011 Appointment: Rika Bello WPtel: [facility] Follow up 02/27/2012 Patient Education: Patient Medication Summary Completed 02/27/2012 Patient Education: High Blood Pressure: Essential Hypertension Completed 2011 Appointment: Rika Bello WPtel: [facility] Follow up 02/15/2012 Patient Education: Patient Medication Summary Completed 02/15/2012 Appointment: Rika Bello WPtel: [id number] [facility] 02/01/2012 Patient Education: Patient Medication Summary Completed 02/01/2012 Patient Education: High Blood Pressure: Essential Hypertension Completed 2011 Appointment: Tessie Motta WPtel: [facility] Other 12/14/2011 Patient Education: Patient Medication Summary Completed 12/14/2011 Appointment: Tessie Motta WPtel: [address] [place], [place] [id number] Follow up 12/08/2011 Appointment: Rika Bello WPtel: [address] [place], [place] [id number] Other 11/30/2011 Patient Education: Patient Medication Summary Completed 11/30/2011 Patient Education: High Blood Pressure: Essential Hypertension Completed 2011 Appointment: Tessie Motta WPtel: [address] [place], [place] [id number] Other 11/17/2011 Patient Education: Patient Medication Summary Completed 11/17/2011 Patient Education: High Blood Pressure: Essential Hypertension Completed 2011 Appointment: Tessie Motta WPtel: [address] [place], [place] [id number] Other 11/03/2011 Patient Education: Patient Medication Summary Completed 11/03/2011 Patient Education: High Blood Pressure: Essential Hypertension Completed 2011 Appointment: Tessie Motta WPtel: [address] [place], [place] [address] Other 10/24/2011 Patient Education: Patient Medication Summary Completed 10/24/2011 Appointment: Rika Bello WPtel: [address] [place], [place] [id number] Other 09/26/2011 Patient Education: Patient Medication Summary Completed 09/26/2011 Patient Education: High Blood Pressure: Essential Hypertension Completed 2011 Patient Education: Patient Medication Summary Completed 09/20/2011 Patient Education: High Blood Pressure: Essential Hypertension Completed 2011 Appointment: Tessie Motta WPtel: [facility]5 [facility] Other 09/05/2011 Appointment: Tess[facility] Motta [facility]Ptel: [facility] [facility] Other 09/01/2011 Patient Education: Patient Medication Summary Completed 09/01/2011 Appointment: Tessie Motta WPtel: [facility] [place] Other 08/15/2011 Appointment: Tessie Motta WPtel: [facility] [place] Other 08/15/2011 Patient Education: Patient Medication Summary Completed 08/15/2011 Appointment: Rika Bello WPtel: [facility]5 [phone] [place] Other 08/09/2011 Patient Education: Patient Medication Summary Completed 08/09/2011 Appointment: Rika Bello WPtel: [address] [phone] [place] Other 08/01/2011 Patient Education: Patient Medication Summary Completed 08/01/2011 Appointment: Rika Bello WPtel: [facility] [place] Other 07/26/2011 Appointment: Tessie Motta WPtel: [address] [place], [place] [address] [place] Other 07/18/2011 Appointment: Tessie Motta WPtel: [facility] [place] Other 06/20/2011 Patient Education: Patient Medication Summary Completed 06/20/2011 Appointment: Tessie Motta WPtel: [facility] [place] Other 04/18/2011 Patient Education: Patient Medication Summary Completed 04/18/2011 Patient Education: High Blood Pressure: Essential Hypertension Completed 2010 Appointment: Tessie Motta WPtel: [facility] Other 04/12/2011 Appointment: Tessie Mtota WPtel: [address] [place], [place] [id number] [place] Other 02/16/2011 Referral: Matt Pavon HPtel:[phone] [facility] Referral Initiated Referral: Yareli Forbes Referral Appointment Requested Referral: Raul Shelley Referral Appointment Requested Referral: Mimi Mejia Referral Initiated Instructions No Instructions
--- OUTSIDE RECORDS SUMMARY | 2018-06-04 19:34 | XMS REPORT | CCD ---
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 Unknown Has never used illegal drugs 02/11/2011 Allergies, Adverse Reactions, Alerts Substance Reaction Codes Entered Date Inactivated Date Status CODEINE RxNorm: 2670 02/11/2011 No Inactive Date Active * NO KNOWN FOOD ALLERGIES Unknown 02/01/2012 No Inactive Date Active cefdinir RxNorm: 73604 08/07/2012 No Inactive Date Active PENICILLINS Unknown 02/11/2011 No Inactive Date Active SULFA (SULFONAMIDES) Unknown 02/11/2011 No Inactive Date Active Tetanus Unknown 02/11/2011 No Inactive Date Active Past Medical History Illness Codes Condition Status Onset Date Resolved Date Dysuria ICD-9: 788.1 ICD-10: R30.0 Active 04/10/2016 Unknown Essential (primary) hypertension ICD-9: 401.1 ICD-10: I10 Active 06/13/2017 Unknown Type 2 diabetes mellitus with hyperglycemia [...] ICD-9: 338.4 ICD-10: G89.4 Active 05/23/2016 Unknown Type 2 diabetes mellitus with hyperglycemia ICD-9: 250.00 ICD-10: E11.65 Active 05/23/2016 Unknown Iron deficiency anemia secondary [...] ICD-9: 719.41 ICD-10: M25.511 Active 09/13/2016 Unknown Generalized anxiety disorder ICD-9: 300.02 ICD-10: F41.1 Active 05/23/2016 Unknown Hypothyroidism, unspecified ICD-9: 244.9 ICD-10: E03.9 [...] ICD-9: 477.0 ICD-10: J30.1 Active 09/23/2016 Unknown Low back pain ICD-9: 724.2 ICD-10: M54.5 Active 09/13/2016 Unknown Candidiasis of skin and nail ICD-9: [...] Problems Condition Codes Effective Dates Condition Status Dysuria ICD-9: 788.1 ICD-10: R30.0 04/10/2016 Active Essential (primary) hypertension ICD-9: 401.1 ICD-10: I10 06/13/2017 Active Type 2 diabetes mellitus with hyperglycemia [...] syndrome ICD-9: 338.4 ICD-10: G89.4 05/23/2016 Active Type 2 diabetes mellitus with hyperglycemia ICD-9: 250.00 ICD-10: E11.65 05/23/2016 Active Iron deficiency anemia secondary to [...] shoulder ICD-9: 719.41 ICD-10: M25.511 09/13/2016 Active Generalized anxiety disorder ICD-9: 300.02 ICD-10: F41.1 05/23/2016 Active Hypothyroidism, unspecified ICD-9: 244.9 ICD-10: E03.9 [...] pollen ICD-9: 477.0 ICD-10: J30.1 09/23/2016 Active Low back pain ICD-9: 724.2 ICD-10: M54.5 09/13/2016 Active Candidiasis of skin and nail ICD-9: [...] Start Date Stop Date Status Fill Instructions ropinirole 1 mg tablet RxNorm: 777389 1 Tablet(s) PO BID 201705/10/2018 Active digoxin 125 mcg tablet RxNorm: 927103 1 Tablet(s) PO daily 05/09/2018 Active Percocet 10 mg-325 mg tablet RxNorm: 0998952 1-2 Tablet(s) PO Q6 PRN 01/04/2018 01/18/2018 Active promethazine 25 mg tablet RxNorm: 148839 Tablet(s) 1 Tablet(s) PO Q6 PRN TAKE NEEDED ONLY!!! 01/02/2018 04/01/2018 Active Percocet 10 mg-325 mg tablet RxNorm: 5378611 1-2 Tablet(s) PO Q6 PRN 01/02/2018 01/03/2018 Inactive pantoprazole 40 mg tablet,delayed release RxNorm: 036061 TAKE 1 TABLET BY MOUTH ONCE DAILY 12/25/2017 No Stop Date Active mupirocin 2 % topical ointment RxNorm: 074088 1 Application TOP BID 12/22/2017 12/31/2017 Inactive fluconazole 150 mg tablet RxNorm: 899943 1 Tablet(s) PO every other day x 3 doses 12/14/2017 12/23/2017 Inactive hyoscyamine 0.125 mg sublingual tablet RxNorm: 0058859 Tablet(s) 1 Tablet(s) SL TID as needed 12/13/2017 04/11/2018 Active Percocet 10 mg-325 mg tablet RxNorm: 9203915 1-2 Tablet(s) PO Q6 PRN 12/13/2017 12/27/2017 Inactive nystatin 100,000 unit/gram topical powder RxNorm: 931009 APPLY POWDER TOPICALLY 4 TIMES DAILY 12/11/2017 No Stop Date Active Xanax 0.5 mg tablet RxNorm: 202876 Tablet(s) TAKE ONE TABLET BY MOUTH THREE TIMES DAILY NEEDED 12/06/20172017 Active nitrofurantoin 50 mg capsule RxNorm: 327327 1 Capsule(s) PO BID 12/01/2017 11/30/2017 Inactive take probiotic BID x 7 days nitrofurantoin 50 mg capsule RxNorm: 897725 1 Capsule(s) PO BID 12/01/2017 12/07/2017 Inactive take probiotic BID x 7 days mupirocin 2 % topical ointment RxNorm: 723485 1 Application TOP BID 11/27/2017 12/06/2017 Inactive Tessalon Perles 100 mg capsule RxNorm: 929768 Capsule(s) 2 Capsule(s) PO TID as needed 11/21/2017 No Stop Date Active nystatin 100,000 unit/mL oral suspension RxNorm: 946430 5 Milliliter(s) PO QID swish and swallow 11/17/2017 11/26/2017 Inactive nystatin 100,000 unit/mL oral suspension RxNorm: 684060 5 Milliliter(s) PO QID swish and swallow 11/17/2017 11/16/2017 Inactive Toprol XL 100 mg tablet,extended release RxNorm: 789456 TAKE ONE TABLET BY MOUTH TWICE DAILY 11/15/2017 No Stop Date Active ropinirole 1 mg tablet RxNorm: 694220 Tablet(s) BID 11/14/2017 01/10/2018 Inactive Diflucan 150 mg tablet RxNorm: 783996 Tablet(s) every other day 1 Tablet(s) PO every other day 11/14/2017 11/16/2017 Inactive Percocet 10 mg-325 mg tablet RxNorm: 0975372 1-2 Tablet(s) PO Q6 PRN 11/09/2017 11/23/2017 Inactive Flonase Allergy Relief 50 mcg/actuation nasal spray, suspension RxNorm: 3497200 2 [place] NASAL daily 11/06/20172017 Active cyclobenzaprine 10 mg tablet RxNorm: 042269 Tablet(s) TABLET(S) 1 TABLET(S) PO NEEDED TAKE 1 TABLET BY MOUTH EVERY 8 HOURS NEEDED 2017 No Stop Date Active Cymbalta 30 mg capsule,delayed release RxNorm: 338835 TAKE ONE CAPSULE BY MOUTH ONCE DAILY - TAKE WITH THE 60 MG DOSE FOR A TOTAL OF 90 MG No Stop Date Active Lantus Solostar U-100 Insulin 100 unit/mL (3 mL) subcutaneous pen RxNorm: 703202 Unit(s) SQ 35 units QAM and 55 units QHS Unit(s) SQ 10/27/2017 No Stop Date Active Wants insulin pens Percocet 10 mg-325 mg tablet RxNorm: 8298513 1-2 Tablet(s) PO Q6 PRN 10/27/2017 11/08/2017 Inactive promethazine 25 mg tablet RxNorm: 514986 Tablet(s) 1 Tablet(s) PO Q6 PRN TAKE NEEDED ONLY!!! 10/27/2017 01/01/2018 Inactive Xanax 0.5 mg tablet RxNorm: 472970 Tablet(s) TAKE ONE TABLET BY MOUTH THREE TIMES DAILY 10/20/2017 12/16/2017 Inactive Tessalon Perles 100 mg capsule RxNorm: 707153 Capsule(s) 2 Capsule(s) PO TID as needed 10/19/2017 11/20/2017 Inactive Diflucan 150 mg tablet RxNorm: 153136 1 Tablet(s) PO every other day 10/15/2017 11/13/2017 Inactive Percocet 10 mg-325 mg tablet RxNorm: 1143333 1-2 Tablet(s) PO Q6 PRN 10/06/2017 10/20/2017 Inactive pantoprazole 40 mg tablet,delayed release RxNorm: 224329 1 Tablet(s) PO BID 10/03/2017 03/31/2018 Active Cymbalta 60 mg capsule,delayed release RxNorm: 045308 TAKE ONE CAPSULE BY MOUTH ONCE DAILY 09/21/2017 No Stop Date Active Diflucan 150 mg tablet RxNorm: 979770 1 Tablet(s) PO every other day 09/15/2017 09/19/2017 Inactive hyoscyamine 0.125 mg sublingual tablet RxNorm: 7665136 1 Tablet(s) SL TID as needed 09/08/2017 12/12/2017 Inactive Lantus Solostar U-100 Insulin 100 unit/mL (3 mL) subcutaneous pen RxNorm: 365024 Unit(s) SQ 35 units QAM and 55 units QHS Unit(s) SQ 09/06/2017 09/20/2017 Inactive Wants insulin pens Lasix 40 mg tablet RxNorm: 906915 TAKE ONE TABLET BY MOUTH TWICE DAILY 08/25/2017 No Stop Date Active ropinirole 1 mg tablet RxNorm: 200098 TAKE ONE TABLET BY MOUTH AT BEDTIME 08/25/2017 11/13/2017 Inactive Lantus U-100 Insulin 100 unit/mL subcutaneous solution RxNorm: 678990 35 units QAM and 55 units QHS Unit(s) SQ 08/21/2017 09/05/2017 Inactive Tessalon Perles 100 mg capsule RxNorm: 521546 Capsule(s) 2 Capsule(s) PO TID as needed 08/18/2017 10/18/2017 Inactive Percocet 10 mg-325 mg tablet RxNorm: 4612028 1-2 Tablet(s) PO Q6 PRN 08/16/2017 08/30/2017 Inactive pantoprazole 40 mg tablet,delayed release RxNorm: 855493 TAKE ONE TABLET BY MOUTH TWICE DAILY 08/14/2017 08/13/2017 Inactive pantoprazole 40 mg tablet,delayed release RxNorm: 804821 1 Tablet(s) PO daily 08/14/2017 10/02/2017 Inactive promethazine 25 mg tablet RxNorm: 664008 Tablet(s) 1 Tablet(s) PO Q6 PRN TAKE NEEDED ONLY!!! 08/11/2017 10/26/2017 Inactive mupirocin 2 % topical ointment RxNorm: 934211 APPLY TO SORE IN BELLY BUTTON TWICE DAILY 08/07/2017 No Stop Date Active omeprazole 20 mg capsule,delayed release RxNorm: 324258 1 Capsule(s) PO daily TAKE 1 CAPSULE BY MOUTH ONCE DAILY 08/07/2017 10/26/2017 Inactive nystatin 100,000 unit/mL oral suspension RxNorm: 245025 5 Milliliter(s) PO QID swish and swallow 08/07/2017 08/16/2017 Inactive omeprazole 20 mg capsule,delayed release RxNorm: 634385 1 Capsule(s) PO BID TAKE 1 CAPSULE BY MOUTH TWICE DAILY 08/03/2017 08/06/2017 Inactive Diflucan 150 mg tablet RxNorm: 501167 1 Tablet(s) PO daily 08/05/2017 Inactive hyoscyamine 0.125 mg sublingual tablet RxNorm: 3643659 1 Tablet(s) SL TID as needed 08/03/2017 09/01/2017 Inactive gentamicin 0.3 % eye drops RxNorm: 809885 2 Drop(s) ophthalmic (eye) TID 08/03/2017 08/09/2017 Inactive Levaquin 500 mg tablet RxNorm: 040081 1 Tablet(s) PO every other day x3 doses 07/27/2017 08/02/2017 Inactive gentamicin 0.3 % eye drops RxNorm: 674754 2 Drop(s) ophthalmic (eye) TID 07/27/2017 08/02/2017 Inactive dicyclomine 10 mg capsule RxNorm: 841272 1 Capsule(s) PO TID 08/02/2017 Inactive Levaquin 500 mg tablet RxNorm: 267072 1 Tablet(s) PO daily 12/201707/26/2017 Inactive Lantus U-100 Insulin 100 unit/mL subcutaneous solution RxNorm: 980296 INJECT 35 UNITS SUBCUTANEOUSLY IN THE MORNING AND 55 UNITS AT BEDTIME 07/24/2017 09/05/2017 Inactive Tessalon Perles 100 mg capsule RxNorm: 112657 2 Capsule(s) PO TID as needed 07/24/2017 08/17/2017 Inactive Percocet 10 mg-325 mg tablet RxNorm: 2923846 1-2 Tablet(s) PO Q6 PRN 07/21/2017 08/04/2017 Inactive promethazine 25 mg tablet RxNorm: 029530 1 Tablet(s) PO Q6 PRN 1 Tablet(s) PO Q6 PRN 07/19/2017 07/26/2017 Inactive Cartia XT 240 mg capsule,extended release RxNorm: 077562 1 Capsule(s) PO daily 06/27/2017 06/21/2018 Active potassium chloride ER 20 mEq tablet,extended release RxNorm: 958449 Tablet(s) TAKE ONE TABLET BY MOUTH ONCE DAILY 06/21/2017 No Stop Date Active gabapentin 600 mg tablet RxNorm: 723032 Tablet(s) TAKE ONE & ONE-HALF TABLETS BY MOUTH THREE TIMES DAILY 06/21/2017 No Stop Date Active Lantus U-100 Insulin 100 unit/mL subcutaneous solution RxNorm: 726886 35 units QAM and 55 units QHS Unit(s) SQ 06/21/2017 07/20/2017 Inactive Please provide 30 day supply Percocet 10 mg-325 mg tablet RxNorm: 4196322 1-2 Tablet(s) PO Q6 PRN 06/21/2017 07/05/2017 Inactive Cartia XT 180 mg capsule,extended release RxNorm: 154142 Capsule(s) BID 06/21/2017 06/26/2017 Inactive Xanax 0.5 mg tablet RxNorm: 726550 Tablet(s) TAKE ONE TABLET BY MOUTH THREE TIMES DAILY 06/21/2017 08/19/2017 Inactive digoxin 125 mcg tablet RxNorm: 152382 1 Tablet(s) PO daily 10/18/2017 Inactive dicyclomine 10 mg capsule RxNorm: 563091 1 Capsule(s) PO TID 07/26/2017 Inactive Lantus U-100 Insulin 100 unit/mL subcutaneous solution RxNorm: 380575 35 units QAM and 55 units QHS Unit(s) SQ 06/13/2017 06/20/2017 Inactive Please provide 30 day supply potassium chloride ER 20 mEq tablet,extended release RxNorm: 072959 TAKE ONE TABLET BY MOUTH ONCE DAILY 06/02/2017 Inactive cyclobenzaprine 10 mg tablet RxNorm: 284022 Tablet(s) TABLET(S) 1 TABLET(S) PO NEEDED TAKE 1 TABLET BY MOUTH EVERY 8 HOURS NEEDED 201711/02/2017 Inactive Tessalon Perles 100 mg capsule RxNorm: 409383 2 Capsule(s) PO TID as needed 06/01/2017 07/23/2017 Inactive promethazine 25 mg tablet RxNorm: 198725 1 Tablet(s) PO Q6 PRN 1 Tablet(s) PO Q6 PRN 05/25/2017 06/01/2017 Inactive gabapentin 600 mg tablet RxNorm: 795657 TAKE ONE & ONE-HALF TABLETS BY MOUTH THREE TIMES DAILY 05/23/2017 06/20/2017 Inactive promethazine 25 mg tablet RxNorm: 358449 1 Tablet(s) PO Q6 PRN 1 Tablet(s) PO Q6 PRN 05/19/2017 05/24/2017 Inactive Flagyl 500 mg tablet RxNorm: 042554 1 Tablet(s) PO TID 201605/26/2017 Inactive Levaquin 500 mg tablet RxNorm: 319761 1 Tablet(s) PO daily 05/16/2017 Inactive Tessalon Perles 100 mg capsule RxNorm: 338096 2 Capsule(s) PO TID as needed 05/17/2017 05/31/2017 Inactive Flagyl 500 mg tablet RxNorm: 357280 1 Tablet(s) PO TID 201605/16/2017 Inactive hyoscyamine 0.125 mg sublingual tablet RxNorm: 4375271 1 Tablet(s) SL TID as needed 05/17/2017 06/12/2017 Inactive Levaquin 500 mg tablet RxNorm: 647940 1 Tablet(s) PO daily 05/23/2017 Inactive Cymbalta 60 mg capsule,delayed release RxNorm: 012703 1 Capsule(s) PO daily take with 30mg tablet 05/16/2017 08/13/2017 Inactive Bentyl 10 mg capsule RxNorm: 981300 1 Capsule(s) PO TID as needed 05/12/2017 06/10/2017 Inactive Levsin 0.125 mg tablet RxNorm: 6868407 1 Tablet(s) PO Q4 PRN 1-2 Tablet(s) PO Q4 PRN 05/11/2017 05/11/2017 Inactive nystatin 100,000 unit/gram topical powder RxNorm: 018146 Gram(s) APPLY POWDER TOPICALLY 4 TIMES DAILY 05/11/20172017 Inactive nystatin 100,000 unit/mL oral suspension RxNorm: 000380 4 Milliliter(s) PO QID swish and swallow 05/10/2017 05/19/2017 Inactive and Monistat over the counter colestipol 1 gram tablet RxNorm: 6370631 TAKE ONE TABLET BY MOUTH TWICE DAILY 05/08/2017 No Stop Date Active Lantus 100 unit/mL subcutaneous solution RxNorm: 788736 30 units QAM and 50 units QHS Unit(s) SQ 04/28/2017 05/27/2017 Inactive Please provide 30 day supply Lantus Solostar 100 unit/mL (3 mL) subcutaneous insulin pen RxNorm: 422003 Unit( s) SQ BID 04/28/2017 06/13/2017 Inactive 30 units q am and 50units at night Lantus 100 unit/mL subcutaneous solution RxNorm: 301921 30 units QAM and 50 units QHS Unit(s) SQ 04/28/2017 04/27/2017 Inactive Please provide 30 day supply Levsin 0.125 mg tablet RxNorm: 1687754 1 Tablet(s) PO Q4 PRN 1-2 Tablet(s) PO Q4 PRN 04/25/2017 05/10/2017 Inactive promethazine 25 mg tablet RxNorm: 205103 1 Tablet(s) PO Q6 PRN 1 Tablet(s) PO Q6 PRN 04/25/2017 05/02/2017 Inactive Toprol XL 100 mg tablet,extended release RxNorm: 662955 TAKE ONE TABLET BY MOUTH TWICE DAILY 04/24/2017 11/14/2017 Inactive Flagyl 500 mg tablet RxNorm: 412378 1 Tablet(s) PO TID 201604/30/2017 Inactive Levaquin 500 mg tablet RxNorm: 992145 1 Tablet(s) PO daily 05/201604/27/2017 Inactive Voltaren 1 % topical gel RxNorm: 675165 4 Gram(s) TOP QID 04/1810/14/2017 Inactive mupirocin 2 % topical ointment RxNorm: 983610 1 Application TOP BID 04/18/2017 04/27/2017 Inactive apply to sore in belly button Lantus Solostar 100 unit/mL (3 mL) subcutaneous insulin pen RxNorm: 746864 Unit( s) SQ BID 04/18/2017 04/27/2017 Inactive 20 units q am and 50units at night levothyroxine 88 mcg tablet RxNorm: 898758 1 Tablet(s) PO daily TAKE ONE TABLET BY MOUTH ONCE DAILY 04/06/2017 04/17/2017 Inactive Xanax 0.5 mg tablet RxNorm: 625601 Tablet(s) TAKE ONE TABLET BY MOUTH THREE TIMES DAILY 04/04/2017 06/02/2017 Inactive Percocet 10 mg-325 mg tablet RxNorm: 6545946 1-2 Tablet(s) PO Q6 PRN 04/04/2017 04/18/2017 Inactive cyclobenzaprine 10 mg tablet RxNorm: 516983 TAKE ONE TABLET BY MOUTH EVERY 8 HOURS NEEDED 04/03/2017 06/01/2017 Inactive potassium chloride ER 20 mEq tablet,extended release RxNorm: 239875 1 Tablet(s) PO daily 03/28/2017 06/01/2017 Inactive nystatin 100,000 unit/gram topical cream RxNorm: 530794 1 Application TOP BID 03/27/2017 04/09/2017 Inactive Levsin 0.125 mg tablet RxNorm: 0956267 1 Tablet(s) PO Q4 PRN 1-2 Tablet(s) PO Q4 PRN 03/27/2017 04/24/2017 Inactive promethazine 25 mg tablet RxNorm: 742879 1 Tablet(s) PO Q6 PRN 03/23/2017 03/29/2017 Inactive nystatin 100,000 unit/gram topical powder RxNorm: 225418 APPLY POWDER TOPICALLY 4 TIMES DAILY 03/17/2017 05/10/2017 Inactive Percocet 10 mg-325 mg tablet RxNorm: 8443398 1-2 Tablet(s) PO Q6 PRN 03/09/2017 03/23/2017 Inactive Levsin 0.125 mg tablet RxNorm: 4817004 1-2 Tablet(s) PO Q4 PRN 03/06/2017 03/26/2017 Inactive promethazine 25 mg tablet RxNorm: 580993 1 Tablet(s) PO Q6 PRN 03/06/2017 03/13/2017 Inactive potassium chloride ER 20 mEq tablet,extended release RxNorm: 275678 1 Tablet(s) PO BID 02/23/2017 03/09/2017 Inactive Levsin/SL 0.125 mg sublingual tablet RxNorm: 2963495 1-2 Tablet(s) SL Q4 PRN 02/17/2017 03/26/2017 Inactive potassium chloride ER 20 mEq tablet,extended release RxNorm: 255087 1 Tablet(s) PO BID 02/17/2017 02/21/2017 Inactive magnesium oxide 400 mg tablet RxNorm: 081732 1 Tablet(s) PO daily 02/17/2017 02/21/2017 Inactive then twice weekly thereafter Levsin 0.125 mg tablet RxNorm: 2610199 1-2 Tablet(s) PO Q4 PRN 02/17/2017 02/16/2017 Inactive promethazine 25 mg tablet RxNorm: 371798 1 Tablet(s) PO Q6 PRN 02/10/2017 03/05/2017 Inactive Percocet 10 mg-325 mg tablet RxNorm: 4158449 1-2 Tablet(s) PO Q6 PRN 02/09/2017 02/23/2017 Inactive Cymbalta 30 mg capsule,delayed release RxNorm: 225676 1 Capsule(s) PO daily take with 60mg tablet 02/06/2017 05/06/2017 Inactive take with 60mg=90mg Cymbalta 60 mg capsule,delayed release RxNorm: 970540 1 Capsule(s) PO daily take with 30mg tablet 02/06/2017 05/06/2017 Inactive Vitamin D2 50,000 unit capsule RxNorm: 269405 1 Capsule(s) PO daily 01/17/2017 01/16/2017 Inactive daily x 6 mths Tresiba FlexTouch U-100 100 unit/mL (3 mL) subcutaneous insulin pen RxNorm: 1036621 40 Unit(s) SQ daily 01/17/20172016 Inactive Tresiba FlexTouch U-100 100 unit/mL (3 mL) subcutaneous insulin pen RxNorm: 9071292 40 Unit(s) SQ daily 01/17/20172016 Inactive Vitamin D2 50,000 unit capsule RxNorm: 532237 1 Capsule(s) PO daily 01/17/2017 10/26/2017 Inactive daily x 6 mths Cymbalta 30 mg capsule,delayed release RxNorm: 026381 1 Capsule(s) PO daily 01/16/2017 02/05/2017 Inactive take with 60mg=90mg Percocet 10 mg-325 mg tablet RxNorm: 1032243 1-2 Tablet(s) PO Q6 PRN 01/13/2017 01/27/2017 Inactive gabapentin 600 mg tablet RxNorm: 068313 TAKE ONE & ONE-HALF TABLETS BY MOUTH THREE TIMES DAILY 01/10/2017 05/09/2017 Inactive Percocet 10 mg-325 mg tablet RxNorm: 6760202 1-2 Tablet(s) PO Q6 PRN 12/21/2016 01/04/2017 Inactive Xanax 0.5 mg tablet RxNorm: 641095 Tablet(s) TAKE ONE TABLET BY MOUTH THREE TIMES DAILY 12/20/2016 02/15/2017 Inactive promethazine 25 mg tablet RxNorm: 791363 1 Tablet(s) PO Q6 PRN 12/16/2016 12/18/2016 Inactive prednisone 20 mg tablet RxNorm: 271665 2 Tablet(s) PO daily 12/14/2016 Inactive prednisone 20 mg tablet RxNorm: 011912 2 Tablet(s) PO daily 03/26/2017 Inactive Eliquis 5 mg tablet RxNorm: 9089204 1 Tablet(s) PO BID 201601/11/2017 Inactive doxycycline monohydrate 100 mg tablet RxNorm: 934237 1 Tablet(s) PO BID 12/13/2016 03/26/2017 Inactive give doxycyline hyclate cyclobenzaprine 10 mg tablet RxNorm: 936632 TAKE ONE TABLET BY MOUTH EVERY 8 HOURS NEEDED 12/09/2016 12/28/2016 Inactive Cymbalta 60 mg capsule,delayed release RxNorm: 684154 TAKE ONE CAPSULE BY MOUTH ONCE DAILY 11/30/2016 02/05/2017 Inactive promethazine 25 mg tablet RxNorm: 588093 2 Tablet(s) PO Q6 PRN 11/29/2016 12/16/2016 Inactive Percocet 10 mg-325 mg tablet RxNorm: 4310743 1-2 Tablet(s) PO Q6 PRN 11/24/2016 12/08/2016 Inactive mupirocin 2 % topical ointment RxNorm: 365688 1 Application TOP BID 11/11/2016 11/24/2016 Inactive Xanax 0.5 mg tablet RxNorm: 265505 Tablet(s) TAKE ONE TABLET BY MOUTH THREE TIMES DAILY 11/11/2016 12/19/2016 Inactive Belviq 10 mg tablet RxNorm: 7070947 1 Tablet(s) PO BID 201612/10/2016 Inactive Toprol XL 100 mg tablet,extended release RxNorm: 512936 TAKE ONE TABLET BY MOUTH TWICE DAILY 11/04/2016 04/02/2017 Inactive albuterol sulfate concentrate 2.5 mg/0.5 mL solution for nebulization RxNorm: 050537 USE ONE VIAL IN NEBULIZER EVERY 4 TO 6 HOURS NEEDED 11/03/2016 11/12/2016 Inactive Percocet 10 mg-325 mg tablet RxNorm: 2532219 1-2 Tablet(s) PO Q6 PRN 10/31/2016 11/23/2016 Inactive promethazine 25 mg tablet RxNorm: 730641 2 Tablet(s) PO Q6 PRN 10/28/2016 11/28/2016 Inactive nystatin 100,000 unit/mL oral suspension RxNorm: 809772 5 Milliliter(s) PO QID 10/28/2016 11/06/2016 Inactive Levemir FlexTouch 100 unit/mL (3 mL) subcutaneous insulin pen RxNorm: 884333 45 Unit(s) SQ BID 10/28/2016 01/16/2017 Inactive 45 q am and 40 q anita cyclobenzaprine 10 mg tablet RxNorm: 969140 TAKE ONE TABLET BY MOUTH EVERY 8 HOURS NEEDED 10/21/2016 11/09/2016 Inactive Lasix 40 mg tablet RxNorm: 068510 TAKE ONE TABLET BY MOUTH TWICE DAILY 10/18/2016 04/15/2017 Inactive Percocet 10 mg-325 mg tablet RxNorm: 8206037 1-2 Tablet(s) PO Q6 PRN 10/18/2016 10/30/2016 Inactive acyclovir 400 mg tablet RxNorm: 756451 2 Tablet(s) PO QID 10/1310/22/2016 Inactive Lasix 40 mg tablet RxNorm: 902401 TAKE ONE TABLET BY MOUTH TWICE DAILY 10/10/2016 10/17/2016 Inactive ropinirole 1 mg tablet RxNorm: 527761 TAKE ONE TABLET BY MOUTH AT BEDTIME 10/10/2016 04/07/2017 Inactive nystatin 100,000 unit/mL oral suspension RxNorm: 405651 5 Milliliter(s) PO QID x 10 days 09/30/2016 10/09/2016 Inactive nystatin 100,000 unit/mL oral suspension RxNorm: 978591 5 Milliliter(s) PO QID x 10 days 09/30/2016 10/09/2016 Inactive Swish et swallow Flonase Allergy Relief 50 mcg/actuation nasal spray, suspension RxNorm: 3924427 2 [place] NASAL daily 09/23/20162016 Inactive Percocet 10 mg-325 mg tablet RxNorm: 8373326 1-2 Tablet(s) PO Q6 PRN 09/23/2016 10/17/2016 Inactive doxycycline monohydrate 100 mg tablet RxNorm: 918245 1 Tablet(s) PO BID 09/23/2016 10/02/2016 Inactive give doxycyline hyclate Levemir FlexTouch 100 unit/mL (3 mL) subcutaneous insulin pen RxNorm: 241346 40 Unit(s) SQ BID 09/15/2016 10/27/2016 Inactive nystatin 100,000 unit/gram topical powder RxNorm: 442931 1 Application TOP QID 09/13/2016 09/22/2016 Inactive Voltaren 1 % topical gel RxNorm: 183693 4 Gram(s) TOP QID 09/1303/11/2017 Inactive Anusol-HC 25 mg rectal suppository RxNorm: 5728056 1 Suppository RTL HS 09/13/2016 09/26/2016 Inactive hydrocodone 10 mg-acetaminophen 325 mg tablet RxNorm: 803457 1-2 Tablet(s) PO Q6 as needed 09/13/2016 09/22/2016 Inactive Linzess 145 mcg capsule RxNorm: 0709455 1 Capsule(s) PO daily 09/01/2016 10/26/2017 Inactive Linzess 145 mcg capsule RxNorm: 4745566 1 Capsule(s) PO daily 09/01/2016 08/31/2016 Inactive Zofran 4 mg tablet RxNorm: 359376 TAKE ONE TABLET BY MOUTH EVERY 4 TO 6 HOURS NEEDED 08/29/2016 08/02/2017 Inactive Voltaren 1 % topical gel RxNorm: 418980 4 Gram(s) TOP QID 08/2309/12/2016 Inactive levothyroxine 88 mcg tablet RxNorm: 835664 TAKE ONE TABLET BY MOUTH ONCE DAILY 08/19/2016 12/16/2016 Inactive hydrocodone 10 mg-acetaminophen 325 mg tablet RxNorm: 159497 1 Tablet(s) PO Q6 as needed 08/17/2016 09/12/2016 Inactive nystatin 100,000 unit/gram topical powder RxNorm: 297697 1 Application TOP QID 08/16/2016 08/25/2016 Inactive Cymbalta 60 mg capsule,delayed release RxNorm: 156501 TAKE ONE CAPSULE BY MOUTH ONCE DAILY 08/10/2016 11/29/2016 Inactive Voltaren 1 % topical gel RxNorm: 006164 4 Gram(s) TOP QID 08/1008/22/2016 Inactive Voltaren 1 % topical gel RxNorm: 854508 4 Gram(s) TOP QID 08/1008/09/2016 Inactive promethazine 25 mg tablet RxNorm: 302938 TAKE ONE TABLET BY MOUTH EVERY 8 HOURS NEEDED FOR NAUSEA 07/29/20162017 Inactive nystatin 100,000 unit/gram topical powder RxNorm: 949611 1 Application TOP QID 07/26/2016 08/04/2016 Inactive Levemir FlexTouch 100 unit/mL (3 mL) subcutaneous insulin pen RxNorm: 026859 35 Unit(s) SQ BID 07/26/2016 08/24/2016 Inactive 35 q am and 30 q pm cyclobenzaprine 10 mg tablet RxNorm: 268838 TAKE ONE TABLET BY MOUTH EVERY 8 HOURS NEEDED 07/14/2016 08/22/2016 Inactive hydrocodone 10 mg-acetaminophen 325 mg tablet RxNorm: 068918 1 Tablet(s) PO Q6 as needed 07/11/2016 08/16/2016 Inactive nystatin 100,000 unit/mL oral suspension RxNorm: 216016 5 Milliliter(s) PO QID x 10 days 07/05/2016 07/04/2016 Inactive nystatin 100,000 unit/mL oral suspension RxNorm: 175567 5 Milliliter(s) PO QID x 10 days 07/05/2016 07/04/2016 Inactive nystatin 100,000 unit/mL oral suspension RxNorm: 007064 5 Milliliter(s) PO QID x 10 days 07/05/2016 07/14/2016 Inactive Swish et swallow doxycycline monohydrate 100 mg tablet RxNorm: 220452 1 Tablet(s) PO BID 06/24/2016 07/03/2016 Inactive give doxycyline hyclate promethazine 25 mg tablet RxNorm: 842160 TAKE ONE TABLET BY MOUTH EVERY 8 HOURS NEEDED FOR NAUSEA 06/01/20162016 Inactive pantoprazole 40 mg tablet,delayed release RxNorm: 162894 1 Tablet(s) PO BID 05/25/2016 08/02/2017 Inactive Zofran 4 mg tablet RxNorm: 750725 1 Tablet(s) PO Q12 PRN TAKE 1 TABLET BY MOUTH EVERY 4 TO 6 HOURS NEEDED 05/24/2016 Inactive hydrocodone 10 mg-acetaminophen 325 mg tablet RxNorm: 678620 1 Tablet(s) PO Q6 as needed 05/24/2016 07/10/2016 Inactive Levemir FlexTouch 100 unit/mL (3 mL) subcutaneous insulin pen RxNorm: 560849 25 Unit(s) SQ BID 05/24/2016 06/22/2016 Inactive Xanax 0.5 mg tablet RxNorm: 809812 Tablet(s) TAKE ONE TABLET BY MOUTH THREE TIMES DAILY 05/11/2016 07/09/2016 Inactive BD Insulin Pen Needle UF Short 31 gauge x 5/16" RxNorm: Mis 05/06/2016 05/05/2016 Inactive BD Insulin Pen Needle UF Short 31 gauge x 5/16" RxNorm: Mis 05/06/2016 06/04/2016 Inactive colestipol 1 gram tablet RxNorm: 2891187 Tablet(s) TAKE 1 TABLET BY MOUTH TWICE DAILY 04/22/2016 04/16/2017 Inactive Levemir FlexTouch 100 unit/mL (3 mL) subcutaneous insulin pen RxNorm: 548015 20 Unit(s) SQ BID 04/19/2016 05/18/2016 Inactive 25 UNITS Q AM AND 20 UNITS Q HS Cartia XT 180 mg capsule,extended release RxNorm: 992270 Capsule(s) BID 04/11/2016 04/05/2017 Inactive hydrocodone 10 mg-acetaminophen 325 mg tablet RxNorm: 862127 1 Tablet(s) PO Q6 as needed 04/11/2016 05/23/2016 Inactive Levemir FlexTouch 100 unit/mL (3 mL) subcutaneous insulin pen RxNorm: 358063 20 Unit(s) SQ BID 04/11/2016 04/18/2016 Inactive 20 UNITS Q AM AND 15 UNITS Q HS X 1 WEEK THEN 20 UNITS BID levothyroxine 88 mcg tablet RxNorm: 252788 1 Tablet(s) PO daily 03/21/2016 07/18/2016 Inactive Cymbalta 60 mg capsule,delayed release RxNorm: 222929 1 Capsule(s) PO daily 03/21/2016 07/18/2016 Inactive diltiazem ER (XR/XT) 240 mg capsule,extended release, controlled RxNorm: 791357 1 Capsule(s) PO BID 03/18/20162017 Inactive doxycycline hyclate 100 mg tablet RxNorm: 466044 1 Tablet(s) PO BID 03/11/2016 03/17/2016 Inactive Levemir FlexTouch 100 unit/mL (3 mL) subcutaneous insulin pen RxNorm: 006515 10 Unit(s) SQ BID 03/11/2016 04/09/2016 Inactive Lasix 40 mg tablet RxNorm: 381802 1 Tablet(s) PO BID 201509/06/2016 Inactive gabapentin 600 mg tablet RxNorm: 230792 Tablet(s) 1.5 TABLET(S) PO TID 03/04/2016 08/30/2016 Inactive Toujeo SoloStar 300 unit/mL (1.5 mL) subcutaneous insulin pen RxNorm: 3536985 10 Unit(s) SQ QHS 02/26/2016 03/26/2016 Inactive polymyxin B sulfate 10,000 unit-trimethoprim 1 mg/mL eye drops RxNorm: 426264 2 Drop(s) OPH TID 02/26/2016 03/03/2016 Inactive Lasix 20 mg tablet RxNorm: 517972 2 Tablet(s) PO BID TAKE 2 TABLETS BY MOUTH EVERY MORNING AND 2 TABLET BY MOUTH AT 3 PM 02/26/2016 03/10/2016 Inactive cyclobenzaprine 10 mg tablet RxNorm: 037924 Tablet(s) TABLET(S) TABLET(S) 1 TABLET (S) PO NEEDED TAKE 1 TABLET BY MOUTH EVERY 8 HOURS NEEDED 02/26/2016 07/13/2016 Inactive early fill- pt lost med Levemir FlexTouch 100 unit/mL (3 mL) subcutaneous insulin pen RxNorm: 249797 16 Unit(s) SQ QHS 02/18/2016 02/17/2016 Inactive Levemir FlexTouch 100 unit/mL (3 mL) subcutaneous insulin pen RxNorm: 285925 16 Unit(s) SQ QHS 02/18/2016 02/25/2016 Inactive Levemir 100 unit/mL subcutaneous solution RxNorm: 730677 16 Unit(s) SQ QHS 02/15/2016 02/17/2016 Inactive disp needles as well Effexor XR 37.5 mg capsule,extended release RxNorm: 393005 1 Capsule(s) QPM CAPSULE(S) PO TAKE 2 CAPSULES BY MOUTH EVERY MORNING AND 1 CAPSULE BY MOUTH EVERY NIGHT AT BEDTIME 02/15/20162015 Inactive clotrimazole 100 mg vaginal tablet RxNorm: 452245 1 Tablet(s) VAG QHS 02/05/2016 02/11/2016 Inactive clotrimazole 100 mg vaginal tablet RxNorm: 983905 1 Tablet(s) VAG QHS 02/05/2016 02/04/2016 Inactive hydrocodone 10 mg-acetaminophen 325 mg tablet RxNorm: 369184 1 Tablet(s) PO Q6 as needed 02/05/2016 04/10/2016 Inactive flecainide 100 mg tablet RxNorm: 830495 1 Tablet(s) PO BID No Stop Date Active potassium chloride ER 10 mEq tablet,extended release RxNorm: 160596 1 Tablet(s) PO daily 1 TABLET(S) PO QDAY PRN TAKE WITH LASIX 02/02/2016 01/26/2017 Inactive Brovana 15 mcg/2 mL solution for nebulization RxNorm: 254879 2 Milliliter(s) INH BID PRN 02/02/2016 03/20/2016 Inactive promethazine 25 mg tablet RxNorm: 175271 1 Tablet(s) PO Q8 as needed nausea 01/27/2016 03/20/2016 Inactive promethazine 25 mg tablet RxNorm: 141520 1 Tablet(s) PO Q6 PRN 01/27/2016 02/03/2016 Inactive nystatin 100,000 unit/mL oral suspension RxNorm: 155814 5 Unit(s) PO QID 01/12/2016 01/21/2016 Inactive promethazine 25 mg tablet RxNorm: 803463 1 Tablet(s) PO Q6 PRN 12/30/2015 01/06/2016 Inactive hydrocodone 7.5 mg-acetaminophen 325 mg tablet RxNorm: 273546 1 Tablet(s) PO q 6 hours prn for pain 12/10/2015 01/06/2016 Inactive Xanax 0.5 mg tablet RxNorm: 022749 TAKE ONE TABLET BY MOUTH THREE TIMES DAILY 12/02/2015 12/31/2015 Inactive Xanax 0.5 mg tablet RxNorm: 265010 Tablet(s) TAKE 1 TABLET BY MOUTH THREE TIMES DAILY 12/02/2015 11/30/2015 Inactive Anusol-HC 25 mg rectal suppository RxNorm: 2749917 1 Suppository RTL HS 11/27/2015 09/12/2016 Inactive ropinirole 1 mg tablet RxNorm: 900294 1 Tablet(s) PO QHS 201505/24/2016 Inactive nystatin 100,000 unit/mL oral suspension RxNorm: 968502 5 Unit(s) PO QID 11/20/2015 11/29/2015 Inactive albuterol sulfate concentrate 2.5 mg/0.5 mL solution for nebulization RxNorm: 777805 3 Milliliter(s) INH Q4-6H as needed 11/10/2015 11/02/2016 Inactive doxycycline monohydrate 100 mg tablet RxNorm: 775231 1 Tablet(s) PO BID 11/10/2015 11/19/2015 Inactive give doxycyline hyclate promethazine 25 mg tablet RxNorm: 232227 1 Tablet(s) PO Q6 PRN 11/05/2015 11/12/2015 Inactive Bactroban 2 % topical ointment RxNorm: 709269 1 APPLICATION TOP BID 10/27/2015 10/26/2017 Inactive Belviq 10 mg tablet RxNorm: 9122033 1 Tablet(s) PO BID 201511/25/2015 Inactive hydrocodone 7.5 mg-acetaminophen 325 mg tablet RxNorm: 192781 1 Tablet(s) PO q 6 hours prn for pain 10/20/2015 11/18/2015 Inactive Toprol XL 100 mg tablet,extended release RxNorm: 851728 Tablet(s) TAKE 1 TABLET BY MOUTH TWICE DAILY 10/16/20152016 Inactive Diflucan 150 mg tablet RxNorm: 564592 1 Tablet(s) PO every other day 10/14/2015 10/23/2015 Inactive Xanax 0.5 mg tablet RxNorm: 668618 Tablet(s) TAKE 1 TABLET BY MOUTH THREE TIMES DAILY 10/14/2015 05/10/2016 Inactive Toprol XL 100 mg tablet,extended release RxNorm: 570739 Tablet(s) TAKE 1 TABLET BY MOUTH TWICE DAILY 10/13/20152015 Inactive cyclobenzaprine 10 mg tablet RxNorm: 704372 Tablet(s) TABLET(S) TABLET(S) 1 TABLET (S) PO NEEDED TAKE 1 TABLET BY MOUTH EVERY 8 HOURS NEEDED 10/02/2015 10/14/2015 Inactive Zofran 4 mg tablet RxNorm: 970797 Tablet(s) 1 TABLET(S) PRN TAKE 1 TABLET BY MOUTH EVERY 4 TO 6 HOURS NEEDED 09/29/2015 12/27/2015 Inactive Synthroid 88 mcg tablet RxNorm: 564598 1 Tablet(s) PO daily 1 TABLET(S) PO DAILY 09/29/2015 10/28/2015 Inactive Patient requests 90 days supply promethazine 25 mg tablet RxNorm: 420959 1 Tablet(s) PO Q6 PRN 09/29/2015 11/04/2015 Inactive Lasix 20 mg tablet RxNorm: 869390 2 Tablet(s) PO BID 201501/18/2016 Inactive promethazine 25 mg tablet RxNorm: 617040 1 Tablet(s) PO Q6 PRN 09/22/2015 09/28/2015 Inactive hydrocodone 7.5 mg-acetaminophen 325 mg tablet RxNorm: 964479 1 Tablet(s) PO q 6 hours prn for pain 09/17/2015 10/16/2015 Inactive WelChol 625 mg tablet RxNorm: 041024 3 Tablet(s) PO BID 201503/26/2017 Inactive promethazine 25 mg tablet RxNorm: 187430 1 Tablet(s) PO Q8 as needed 09/07/2015 10/26/2017 Inactive Levemir 100 unit/mL subcutaneous solution RxNorm: 022240 16 Unit(s) SQ QHS 09/01/2015 02/14/2016 Inactive pantoprazole 40 mg tablet,delayed release RxNorm: 817518 1 Tablet(s) PO daily 09/01/2015 05/24/2016 Inactive Effexor XR 37.5 mg capsule,extended release RxNorm: 974079 Capsule(s) CAPSULE(S) PO TAKE 2 CAPSULES BY MOUTH EVERY MORNING AND 1 CAPSULE BY MOUTH EVERY NIGHT AT BEDTIME 08/27/2015 02/14/2016 Inactive promethazine 25 mg tablet RxNorm: 285188 1 Tablet(s) PO Q8 as needed 08/13/2015 09/06/2015 Inactive gabapentin 600 mg tablet RxNorm: 289549 Tablet(s) 1.5 TABLET(S) PO TID 08/13/2015 02/08/2016 Inactive hydrocodone 7.5 mg-acetaminophen 325 mg tablet RxNorm: 564523 1 Tablet(s) PO q 6 hours prn for pain 08/10/2015 09/08/2015 Inactive Zofran 4 mg tablet RxNorm: 963262 Tablet(s) 1 TABLET(S) PRN TAKE 1 TABLET BY MOUTH EVERY 4 TO 6 HOURS NEEDED 08/04/2015 08/03/2015 Inactive Zofran 4 mg tablet RxNorm: 810007 Tablet(s) 1 TABLET(S) PRN TAKE 1 TABLET BY MOUTH EVERY 4 TO 6 HOURS NEEDED 08/04/2015 09/28/2015 Inactive doxycycline monohydrate 100 mg tablet RxNorm: 301930 1 Tablet(s) PO BID 08/04/2015 08/10/2015 Inactive give doxycyline hyclate Diflucan 150 mg tablet RxNorm: 725020 1 Tablet(s) PO every other day 07/31/2015 08/09/2015 Inactive nystatin 100,000 unit/mL oral suspension RxNorm: 136003 5 Milliliter(s) PO QID 07/31/2015 07/30/2015 Inactive Diflucan 150 mg tablet RxNorm: 941367 1 Tablet(s) PO every other day 07/31/2015 07/30/2015 Inactive nystatin 100,000 unit/mL oral suspension RxNorm: 123931 5 Milliliter(s) PO QID 07/31/2015 08/09/2015 Inactive Ceftin 500 mg tablet RxNorm: 288878 1 Tablet(s) PO BID 201507/23/2015 Inactive Ceftin 500 mg tablet RxNorm: 486745 1 Tablet(s) PO BID Pre-medicate with benadryl 50 mg, pepcid 20 mg, and nathanael before each dose 07/24/2015 07/30/2015 Inactive cyclobenzaprine 10 mg tablet RxNorm: 040802 TABLET(S) TABLET(S) 1 TABLET(S) PO NEEDED TAKE 1 TABLET BY MOUTH EVERY 8 HOURS NEEDED 201502/25/2016 Inactive early fill- pt lost med Synthroid 88 mcg tablet RxNorm: 600462 1 TABLET(S) PO DAILY 07/201509/28/2015 Inactive Patient requests 90 days supply cyclobenzaprine 10 mg tablet RxNorm: 153910 Tablet(s) TABLET(S) TABLET(S) 1 TABLET (S) PO NEEDED TAKE 1 TABLET BY MOUTH EVERY 8 HOURS NEEDED 07/23/2015 10/01/2015 Inactive early fill- pt lost med Promethazine VC 6.25 mg-5 mg/5 mL syrup RxNorm: 2416445 1-2 Teaspoon(s) PO Q6 PRN as needed 07/22/2015 03/20/2016 Inactive Diflucan 150 mg tablet RxNorm: 520168 1 Tablet(s) PO daily 06/201507/22/2015 Inactive Lasix 20 mg tablet RxNorm: 949667 Tablet(s) TAKE 2 TABLETS BY MOUTH EVERY MORNING AND 2 TABLET BY MOUTH AT 3PM 07/16/2015 09/21/2015 Inactive Toprol XL 100 mg tablet,extended release RxNorm: 725529 Tablet(s) TAKE 1 TABLET BY MOUTH TWICE DAILY 07/16/20152015 Inactive Cartia XT 180 mg capsule,extended release RxNorm: 280063 Capsule(s) 1 CAPSULE(S) PO DAILY TAKE 1 CAPSULE BY MOUTH AT BEDTIME ..TAKE THIS IN ADDITION TO 240 MG IN THE MORNING 07/14/2015 04/10/2016 Inactive diltiazem ER (XR/XT) 240 mg capsule,extended release, controlled RxNorm: 081193 Capsule(s) TAKE 1 CAPSULE BY MOUTH DAILY 07/14/2015 03/17/2016 Inactive gabapentin 600 mg tablet RxNorm: 076215 Tablet(s) 1.5 TABLET(S) PO TID 07/06/2015 08/12/2015 Inactive Phenergan 25 mg tablet RxNorm: 446498 1 Tablet(s) PO Q8 as needed nausea 06/29/2015 01/25/2016 Inactive doxycycline monohydrate 100 mg tablet RxNorm: 965252 1 Tablet(s) PO BID 06/29/2015 06/28/2015 Inactive doxycycline monohydrate 100 mg tablet RxNorm: 459888 1 Tablet(s) PO BID 06/29/2015 07/08/2015 Inactive give doxycyline hyclate doxycycline monohydrate 100 mg tablet RxNorm: 598917 1 Tablet(s) PO BID 06/29/2015 06/28/2015 Inactive Lasix 20 mg tablet RxNorm: 936341 Tablet(s) TAKE 2 TABLETS BY MOUTH EVERY MORNING AND 2 TABLET BY MOUTH AT 3PM 06/29/2015 07/15/2015 Inactive Lasix 20 mg tablet RxNorm: Tablet(s) TAKE 2 TABLETS BY MOUTH EVERY MORNING AND 1 TABLET BY MOUTH AT 3PM 06/26/2015 06/28/2015 Inactive Xanax 0.5 mg tablet RxNorm: 389507 Tablet(s) TAKE 1 TABLET BY MOUTH THREE TIMES DAILY 06/26/2015 07/25/2015 Inactive Kenalog 40 mg/mL suspension for injection RxNorm: 2672495 Milliliter(s) Inj 06/26/2015 06/26/2015 Inactive hydrocodone 7.5 mg-acetaminophen 325 mg tablet RxNorm: 286285 1 Tablet(s) PO q 6 hours prn for pain 06/26/2015 07/25/2015 Inactive Dexilant 60 mg capsule, delayed release RxNorm: 453374 1 Capsule(s) PO daily 06/26/2015 08/24/2015 Inactive colestipol 1 gram tablet RxNorm: 7297795 1 TABLET(S) PO BID TAKE 1 TABLET BY MOUTH TWICE DAILY 06/16/2015 03/11/2016 Inactive hydrocodone 7.5 mg-acetaminophen 325 mg tablet RxNorm: 718270 1 Tablet(s) PO q 6 hours prn for pain 06/11/2015 06/25/2015 Inactive cyclobenzaprine 10 mg tablet RxNorm: 218926 TABLET(S) TABLET(S) 1 TABLET(S) PO NEEDED TAKE 1 TABLET BY MOUTH EVERY 8 HOURS NEEDED 201507/22/2015 Inactive early fill- pt lost med Zofran 4 mg tablet RxNorm: 343608 1 TABLET(S) PRN TAKE 1 TABLET BY MOUTH EVERY 4 TO 6 HOURS NEEDED 05/25/20152015 Inactive Zofran 4 mg tablet RxNorm: 294854 1 Tablet(s) PRN TAKE 1 TABLET BY MOUTH EVERY 4 TO 6 HOURS NEEDED 05/19/20152015 Inactive gabapentin 600 mg tablet RxNorm: 712194 1.5 TABLET(S) PO TID 07/05/2015 Inactive Lasix 20 mg tablet RxNorm: 486673 TAKE 2 TABLETS BY MOUTH EVERY MORNING AND 1 TABLET BY MOUTH AT 3PM 05/07/20152015 Inactive Effexor XR 37.5 mg capsule,extended release RxNorm: 516998 Capsule(s) CAPSULE(S) PO TAKE 2 CAPSULES BY MOUTH EVERY MORNING AND 1 CAPSULE BY MOUTH EVERY NIGHT AT BEDTIME 04/15/2015 08/26/2015 Inactive Diflucan 150 mg tablet RxNorm: 740184 1 Tablet(s) PO daily 04/18/2015 Inactive Victoza 3-Babak 0.6 mg/0.1 mL (18 mg/3 mL) subcutaneous pen injector RxNorm: 310435 1.8 Milligram(s) SQ daily 04/14/201508/10 Inactive Levaquin 500 mg tablet RxNorm: 807230 1 Tablet(s) PO daily 04/20/2015 Inactive potassium chloride ER 10 mEq tablet,extended release RxNorm: 708194 1 TABLET(S) PO QDAY PRN TAKE WITH LASIX 04/13/201504/2016 Inactive Effexor XR 37.5 mg capsule,extended release RxNorm: 123873 CAPSULE(S) PO TAKE 2 CAPSULES BY MOUTH EVERY MORNING AND 1 CAPSULE BY MOUTH EVERY NIGHT AT BEDTIME 04/10/2015 04/14/2015 Inactive pantoprazole 40 mg tablet,delayed release RxNorm: 207443 1 Tablet(s) PO daily 03/31/2015 08/31/2015 Inactive Dexilant 60 mg capsule, delayed release RxNorm: 641840 1 Capsule(s) PO daily 03/31/2015 03/31/2015 Inactive pantoprazole 40 mg tablet,delayed release RxNorm: 155181 1 Tablet(s) PO daily 03/31/2015 03/30/2015 Inactive Dexilant 60 mg capsule, delayed release RxNorm: 434098 1 Capsule(s) PO daily 03/31/2015 05/29/2015 Inactive Dexilant 60 mg capsule, delayed release RxNorm: 565604 1 Capsule(s) PO daily 03/30/2015 03/30/2015 Inactive hydrocodone 7.5 mg-acetaminophen 325 mg tablet RxNorm: 264007 1 Tablet(s) PO q 6 hours prn for pain 03/30/2015 04/28/2015 Inactive cyclobenzaprine 10 mg tablet RxNorm: 995008 TABLET(S) TABLET(S) 1 TABLET(S) PO NEEDED TAKE 1 TABLET BY MOUTH EVERY 8 HOURS NEEDED 201405/31/2015 Inactive early fill- pt lost med Xanax 0.5 mg tablet RxNorm: 609816 Tablet(s) TAKE 1 TABLET BY MOUTH THREE TIMES DAILY 03/25/2015 04/23/2015 Inactive Lasix 20 mg tablet RxNorm: 109184 TAKE 2 TABLETS BY MOUTH EVERY MORNING AND 1 TABLET BY MOUTH AT 3PM 03/23/20152014 Inactive Levemir Flexpen 100 unit/mL (3 mL) solution subcutaneous insulin pen RxNorm: 184390 15 Unit(s) SQ BID 03/20/20152015 Inactive give quanity sufficient for 1 month- Dexilant 60 mg capsule, delayed release RxNorm: 214228 1 Capsule(s) PO daily 03/19/2015 03/29/2015 Inactive Dexilant 60 mg capsule, delayed release RxNorm: 634841 1 Capsule(s) PO daily 03/19/2015 03/18/2015 Inactive Diflucan 150 mg tablet RxNorm: 199315 1 Tablet(s) PO every other day x7 doses 03/19/2015 03/21/2015 Inactive hydrocodone 7.5 mg-acetaminophen 325 mg tablet RxNorm: 310901 1 Tablet(s) PO q 6 hours prn for pain 02/27/2015 03/28/2015 Inactive Lasix 20 mg tablet RxNorm: 061984 TAKE 2 TABLETS BY MOUTH EVERY MORNING AND 1 TABLET BY MOUTH AT 3PM 02/27/20152014 Inactive omeprazole 20 mg capsule,delayed release RxNorm: 839202 1 CAPSULE(S) PO DAILY TAKE 1 CAPSULE BY MOUTH TWICE DAILY 02/26/2015 10/26/2017 Inactive Zofran 4 mg tablet RxNorm: 703062 1 Tablet(s) PRN TAKE 1 TABLET BY MOUTH EVERY 4 TO 6 HOURS NEEDED 02/24/20152014 Inactive fluconazole 150 mg tablet RxNorm: 705705 1 Tablet(s) PO every other day x 5 doses 02/19/2015 02/28/2015 Inactive cyclobenzaprine 10 mg tablet RxNorm: 789350 TABLET(S) TABLET(S) 1 TABLET(S) PO NEEDED TAKE 1 TABLET BY MOUTH EVERY 8 HOURS NEEDED 201403/29/2015 Inactive early fill- pt lost med hydrocodone 7.5 mg-acetaminophen 325 mg tablet RxNorm: 402287 1 Tablet(s) PO q 6 hours prn for pain 01/29/2015 02/26/2015 Inactive Xanax 0.5 mg tablet RxNorm: 889271 Tablet(s) TAKE 1 TABLET BY MOUTH THREE TIMES DAILY 01/29/2015 02/27/2015 Inactive Bactroban 2 % topical ointment RxNorm: 554490 1 APPLICATION TOP BID 01/26/2015 10/26/2015 Inactive Bactroban 2 % topical ointment RxNorm: 702918 1 Application TOP BID 01/15/2015 01/25/2015 Inactive doxycycline hyclate 100 mg tablet RxNorm: 538429 1 Tablet(s) PO BID 01/15/2015 01/21/2015 Inactive nystatin 100,000 unit/mL oral suspension RxNorm: 978452 5 Milliliter(s) PO QID 01/15/2015 01/24/2015 Inactive Cartia XT 180 mg capsule,extended release RxNorm: 711416 1 CAPSULE(S) PO DAILY TAKE 1 CAPSULE BY MOUTH AT BEDTIME ..TAKE THIS IN ADDITION TO 240 MG IN THE MORNING 01/13/2015 07/13/2015 Inactive Lasix 20 mg tablet RxNorm: TAKE 2 TABLETS BY MOUTH EVERY MORNING AND 1 TABLET BY MOUTH AT 3PM 01/08/20152014 Inactive fluconazole 150 mg tablet RxNorm: 734617 1 Tablet(s) PO daily 01/01/2015 01/05/2015 Inactive hydrocodone 7.5 mg-acetaminophen 325 mg tablet RxNorm: 804403 1 Tablet(s) PO q 6 hours prn for pain 01/01/2015 01/28/2015 Inactive colestipol 1 gram tablet RxNorm: 3484829 1 TABLET(S) PO BID TAKE 1 TABLET BY MOUTH TWICE DAILY 12/18/2014 06/15/2015 Inactive colestipol 1 gram tablet RxNorm: 8005930 1 TABLET(S) PO BID TAKE 1 TABLET BY MOUTH TWICE DAILY 12/18/2014 09/13/2015 Inactive Lasix 20 mg tablet RxNorm: TAKE 2 TABLETS BY MOUTH EVERY MORNING AND 2 TABLETS AND AT 3PM 12/11/2014 12/25/2014 Inactive cyclobenzaprine 10 mg tablet RxNorm: 806313 TABLET(S) 1 TABLET(S) PO NEEDED TAKE 1 TABLET BY MOUTH EVERY 8 HOURS NEEDED 12/11/2014 05/31/2017 Inactive Lasix 20 mg tablet RxNorm: Tablet(s) TABLET(S) PO TAKE 2 TABLETS BY MOUTH EVERY MORNING AND 1 TABLET BY MOUTH AT 3 PM 12/10/2014 12/10/2014 Inactive fill early- pt lost them cyclobenzaprine 10 mg tablet RxNorm: 945922 Tablet(s) TABLET(S) 1 TABLET(S) PO NEEDED TAKE 1 TABLET BY MOUTH EVERY 8 HOURS NEEDED 201402/15/2015 Inactive early fill- pt lost med cyclobenzaprine 10 mg tablet RxNorm: 590388 TABLET(S) 1 TABLET(S) PO NEEDED TAKE 1 TABLET BY MOUTH EVERY 8 HOURS NEEDED 12/02/2014 12/09/2014 Inactive hydrocodone 7.5 mg-acetaminophen 325 mg tablet RxNorm: 295916 1 Tablet(s) PO q 6 hours prn for pain 12/01/2014 12/30/2014 Inactive diltiazem ER (XR/XT) 240 mg capsule,extended release, controlled RxNorm: 424033 TAKE 1 CAPSULE BY MOUTH DAILY 11/30/2014 07/13/2015 Inactive Xanax 0.5 mg tablet RxNorm: 181017 1 Tablet(s) PO TID PRN as needed 11/19/2014 11/19/2014 Inactive (Appended: Controlled substance eRx refill - RxReferenceNumber: [id number]|1|0|1) Xanax 0.5 mg tablet RxNorm: 004495 TAKE 1 TABLET BY MOUTH THREE TIMES DAILY 11/19/2014 12/18/2014 Inactive Toprol XL 100 mg tablet,extended release RxNorm: 144983 TAKE 1 TABLET BY MOUTH TWICE DAILY 11/06/2014 07/15/2015 Inactive Diflucan 150 mg tablet RxNorm: 101669 1 Tablet(s) PO every other day x7 doses 11/05/2014 11/07/2014 Inactive omeprazole 20 mg capsule,delayed release RxNorm: 282297 1 Capsule(s) PO daily TAKE 1 CAPSULE BY MOUTH TWICE DAILY 11/04/2014 02/01/2015 Inactive cyclobenzaprine 10 mg tablet RxNorm: 087167 TABLET(S) 1 TABLET(S) PO NEEDED TAKE 1 TABLET BY MOUTH EVERY 8 HOURS NEEDED 10/28/2014 12/01/2014 Inactive hydrocodone 7.5 mg-acetaminophen 325 mg tablet RxNorm: 714640 1 Tablet(s) PO q 6 hours prn for pain 10/21/2014 11/19/2014 Inactive gabapentin 600 mg tablet RxNorm: 866373 1.5 Tablet(s) PO TID 04/30/2015 Inactive Xanax 0.5 mg tablet RxNorm: 681642 Tablet(s) TAKE 1 TABLET BY MOUTH THREE TIMES DAILY 10/01/2014 10/30/2014 Inactive (Response to an electronic controlled substance refill request - RxReferenceNumber: [id number]|1|0|1) Xanax 0.25 mg tablet RxNorm: 933672 1 Tablet(s) PO Q8 PRN as needed 09/30/2014 09/30/2014 Inactive Lasix 20 mg tablet RxNorm: 145525 Tablet(s) TAKE 2 TABLETS BY MOUTH EVERY MORNING AND 2 TABLETS BY MOUTH AT 3 PM 09/30/2014 11/12/2014 Inactive Victoza 3-Babak 0.6 mg/0.1 mL (18 mg/3 mL) subcutaneous pen injector RxNorm: 749241 1.2 MILLIGRAM(S) SQ DAILY 0.6 X 2 WEEKS THEN INCREASE TO 1.2MG DAILY 09/26/2014 04/13/2015 Inactive Xanax 0.5 mg tablet RxNorm: 750970 TAKE 1 TABLET BY MOUTH THREE TIMES DAILY 09/25/2014 09/30/2014 Inactive (Response to an electronic controlled substance refill request - RxReferenceNumber: [id number]|1|0|1) Zofran 4 mg tablet RxNorm: 556335 TAKE 1 TABLET BY MOUTH EVERY 4 TO 6 HOURS NEEDED 09/25/2014 09/27/2014 Inactive hydrocodone 7.5 mg-acetaminophen 325 mg tablet RxNorm: 731332 1 Tablet(s) PO q 6 hours prn for pain 09/19/2014 10/18/2014 Inactive cyclobenzaprine 10 mg tablet RxNorm: 813568 TABLET(S) 1 TABLET(S) PO NEEDED TAKE 1 TABLET BY MOUTH EVERY 8 HOURS NEEDED 09/15/2014 10/27/2014 Inactive Lasix 20 mg tablet RxNorm: 974730 Tablet(s) TAKE 2 TABLETS BY MOUTH EVERY MORNING AND 2 TABLETS BY MOUTH AT 3 PM 09/08/2014 09/29/2014 Inactive Lasix 20 mg tablet RxNorm: TAKE 2 TABLETS BY MOUTH EVERY MORNING AND 2 TABLETS BY MOUTH AT 3 PM 08/21/20142014 Inactive hydrocodone 7.5 mg-acetaminophen 325 mg tablet RxNorm: 476477 1 Tablet(s) PO q 6 hours prn for pain 08/21/2014 09/18/2014 Inactive Diflucan 150 mg tablet RxNorm: 734027 1 Tablet(s) PO every other day 08/15/2014 08/17/2014 Inactive cyclobenzaprine 10 mg tablet RxNorm: 073217 Tablet(s) 1 TABLET(S) PO NEEDED TAKE 1 TABLET BY MOUTH EVERY 8 HOURS NEEDED 08/12/2014 09/14/2014 Inactive Zofran 4 mg tablet RxNorm: 121030 TAKE 1 TABLET BY MOUTH EVERY 4 TO 6 HOURS NEEDED 07/31/2014 08/02/2014 Inactive Effexor XR 37.5 mg capsule,extended release RxNorm: 520303 CAPSULE(S) PO TAKE 2 CAPSULES BY MOUTH EVERY MORNING AND 1 CAPSULE BY MOUTH EVERY NIGHT AT BEDTIME 07/28/2014 02/15/2016 Inactive Lasix 20 mg tablet RxNorm: 994372 TAKE 2 TABLETS BY MOUTH EVERY MORNING AND 2 TABLETS BY MOUTH AT 3 PM 07/22/20142014 Inactive Diflucan 150 mg tablet RxNorm: 122373 1 Tablet(s) PO daily 06/201407/23/2014 Inactive hydrocodone 7.5 mg-acetaminophen 325 mg tablet RxNorm: 728879 1 Tablet(s) PO q 6 hours prn for pain 07/14/2014 08/12/2014 Inactive Synthroid 88 mcg tablet RxNorm: 560821 1 TABLET(S) PO DAILY 10/11/2014 Inactive Effexor XR 37.5 mg capsule,extended release RxNorm: 996097 Capsule(s) PO TAKE 2 CAPSULES BY MOUTH EVERY MORNING AND 1 CAPSULE BY MOUTH EVERY NIGHT AT BEDTIME 07/07/2014 04/09/2015 Inactive Effexor XR 37.5 mg capsule,extended release RxNorm: 666781 TAKE 2 CAPSULES BY MOUTH EVERY MORNING AND 1 CAPSULE BY MOUTH EVERY NIGHT AT BEDTIME 07/07/2014 01/02/2015 Inactive WelChol 625 mg tablet RxNorm: 911223 3 TABLET(S) PO BID 201410/04/2014 Inactive WelChol 625 mg tablet RxNorm: 181652 3 Tablet(s) PO BID 201402/01/2015 Inactive Zofran 4 mg tablet RxNorm: 044142 TAKE 1 TABLET BY MOUTH EVERY 4 TO 6 HOURS NEEDED 07/03/2014 07/05/2014 Inactive Lasix 20 mg tablet RxNorm: 372585 TAKE 2 TABLETS BY MOUTH EVERY MORNING AND 2 TABLETS BY MOUTH AT 3 PM 06/26/20142014 Inactive Diflucan 150 mg tablet RxNorm: 971662 1 Tablet(s) PO daily 06/19/2014 Inactive Promethazine VC 6.25 mg-5 mg/5 mL syrup RxNorm: 7095899 1-2 Teaspoon(s) PO Q6 PRN as needed 06/12/2014 07/21/2015 Inactive hydrocodone 7.5 mg-acetaminophen 325 mg tablet RxNorm: 495514 1 Tablet(s) PO q 6 hours prn for pain 06/03/2014 07/02/2014 Inactive Levaquin 500 mg tablet RxNorm: 524253 1 Tablet(s) PO daily 01/201506/05/2014 Inactive cyclobenzaprine 10 mg tablet RxNorm: 500290 Tablet(s) 1 TABLET(S) PO NEEDED TAKE 1 TABLET BY MOUTH EVERY 8 HOURS NEEDED 05/26/2014 No Stop Date Active cyclobenzaprine 10 mg tablet RxNorm: 408409 1 TABLET(S) PO NEEDED TAKE 1 TABLET BY MOUTH EVERY 8 HOURS NEEDED 05/26/2014 08/11/2014 Inactive Lasix 20 mg tablet RxNorm: 556443 Tablet(s) TABLET(S) PO TAKE 2 TABLETS BY MOUTH EVERY MORNING AND 2 TABLET BY MOUTH AT 3 PM 05/12/2014 06/25/2014 Inactive Combivent Respimat 20 mcg-100 mcg/actuation solution for inhalation RxNorm: 5115501 INHALE 1 PUFF BY MOUTH FOUR TIMES DAILY 05/12/2014 11/07/2014 Inactive fluconazole 150 mg tablet RxNorm: 233670 1 Tablet(s) PO UD 05/12/2014 Inactive 1 tab every other day x 5 doses Activella 0.5 mg-0.1 mg tablet RxNorm: 3267345 1 TABLET(S) PO DAILY TAKE 1 TABLET BY MOUTH DAILY FOR MENOPAUSAL SYMPTOM 05/02/2014 09/21/2015 Inactive hydrocodone 7.5 mg-acetaminophen 300 mg tablet RxNorm: 125876 Tablet(s) PO TAKE 1 TABLET BY MOUTH EVERY 6 HOURS NEEDED FOR PAIN 04/21/2014 06/03/2014 Inactive ( Appended: Controlled substance eRx refill - RxReferenceNumber: [id number]|1|0|1 ) Levaquin 500 mg tablet RxNorm: 786886 1 Tablet(s) PO daily 04/21/2014 Inactive Diflucan 150 mg tablet RxNorm: 983709 1 Tablet(s) PO every other day x 4 doses 04/10/2014 06/16/2014 Inactive Lasix 20 mg tablet RxNorm: 721409 TAKE 2 TABLETS BY MOUTH EVERY MORNING AND 1 TABLET BY MOUTH AT 3 PM 04/10/20142013 Inactive potassium chloride ER 10 mEq tablet,extended release RxNorm: 253888 1 TABLET(S) PO QDAY PRN TAKE WITH LASIX 04/09/2014 Inactive Levaquin 250 mg tablet RxNorm: 744242 1 Tablet(s) PO daily 08/201304/07/2014 Inactive 2 tabs today then 1 tab daily until gone atorvastatin 40 mg tablet RxNorm: 922088 1 Tablet(s) daily 1 TABLET(S) PO DAILY 03/25/2014 04/10/2016 Inactive TAKE 1 TABLET BY MOUTH DAILY (THIS IS AN INCREASE IN DOSAGE) Zofran 4 mg tablet RxNorm: 203843 1 Tablet(s) PO Q4-6H 201307/02/2014 Inactive Xanax 0.5 mg tablet RxNorm: 223344 TAKE 1 TABLET BY MOUTH THREE TIMES DAILY NEEDED 03/19/2014 04/17/2014 Inactive (Response to an electronic controlled substance refill request - RxReferenceNumber: [id number]|1|0|1) hydrocodone 7.5 mg-acetaminophen 300 mg tablet RxNorm: 518664 Tablet(s) PO TAKE 1 TABLET BY MOUTH EVERY 6 HOURS NEEDED FOR PAIN 03/19/2014 04/20/2014 Inactive ( Appended: Controlled substance eRx refill - RxReferenceNumber: [id number]|1|0|1 ) atorvastatin 40 mg tablet RxNorm: 425342 1 TABLET(S) PO DAILY 03/10/2014 03/24/2014 Inactive TAKE 1 TABLET BY MOUTH DAILY (THIS IS AN INCREASE IN DOSAGE) WelChol 625 mg tablet RxNorm: 162955 3 Tablet(s) PO BID 201303/06/2014 Inactive WelChol 625 mg tablet RxNorm: 032803 3 Tablet(s) PO BID 201307/04/2014 Inactive Lasix 20 mg tablet RxNorm: Tablet(s) TABLET(S) PO TAKE 2 TABLETS BY MOUTH EVERY MORNING AND 2 TABLET BY MOUTH AT 3 PM 03/03/2014 05/11/2014 Inactive Lasix 20 mg tablet RxNorm: TABLET(S) PO TAKE 2 TABLETS BY MOUTH EVERY MORNING AND 1 TABLET BY MOUTH AT 3 PM 02/20/2014 03/02/2014 Inactive gabapentin 600 mg tablet RxNorm: 859530 1.5 Tablet(s) PO TID 09/16/2014 Inactive Synthroid 88 mcg tablet RxNorm: 888341 1 TABLET(S) PO DAILY 05/18/2014 Inactive cyclobenzaprine 10 mg tablet RxNorm: 475542 1 TABLET(S) PO NEEDED TAKE 1 TABLET BY MOUTH EVERY 8 HOURS NEEDED 02/18/2014 05/25/2014 Inactive doxycycline hyclate 100 mg tablet RxNorm: 838085 1 Tablet(s) PO BID 02/13/2014 02/22/2014 Inactive Bactroban 2 % topical ointment RxNorm: 114542 1 Application TOP BID 02/13/2014 03/12/2014 Inactive Victoza 3-Babak 0.6 mg/0.1 mL (18 mg/3 mL) subcutaneous pen injector RxNorm: 516247 1.2 MILLIGRAM(S) SQ DAILY 0.6 X 2 WEEKS THEN INCREASE TO 1.2MG DAILY 02/10/2014 05/10/2014 Inactive albuterol sulfate 1.25 mg/3 mL solution for nebulization RxNorm: 074461 3 MILLILITER(S) INH TID 02/07/20142014 Inactive 1 box Victoza 3-Babak 0.6 mg/0.1 mL (18 mg/3 mL) subcutaneous pen injector RxNorm: 474020 1.8 Milligram(s) SQ daily 0.6 x 2 weeks then increase to 1.2mg daily 01/27/2014 05/26/2014 Inactive Levemir Flexpen 100 unit/mL (3 mL) solution subcutaneous insulin pen RxNorm: 257396 5units sq at hs, increase by 3 Unit(s) SQ at hs every 3days, goal FSBS 170 or less, do not increase above 20units, call doctor with report 01/27/2014 05/26/2014 Inactive hydrocodone 7.5 mg-acetaminophen 300 mg tablet RxNorm: 779372 Tablet(s) PO TAKE 1 TABLET BY MOUTH EVERY 6 HOURS NEEDED FOR PAIN 01/24/2014 03/18/2014 Inactive ( Appended: Controlled substance eRx refill - RxReferenceNumber: [id number]|1|0|1 ) Xanax 0.5 mg tablet RxNorm: 537339 1 Tablet(s) PO TID PRN as needed 01/24/2014 09/21/2014 Inactive (Appended: Controlled substance eRx refill - RxReferenceNumber: [id number]|1|0|1) Xanax 0.5 mg tablet RxNorm: 808014 TAKE 1 TABLET BY MOUTH THREE TIMES DAILY NEEDED 01/23/2014 02/21/2014 Inactive (Response to an electronic controlled substance refill request - RxReferenceNumber: [id number]|1|0|1) hydrocodone 5 mg-acetaminophen 325 mg tablet RxNorm: 517273 TAKE 1 TABLET BY MOUTH EVERY 6 HOURS NEEDED FOR PAIN 01/21/2014 02/19/2014 Inactive (Response to an electronic controlled substance refill request - RxReferenceNumber: [id number]| [id number]|1|0|1) Lasix 20 mg tablet RxNorm: 565900 TAKE 2 TABLETS BY MOUTH EVERY MORNING AND 1 TABLET BY MOUTH AT 3 PM 01/17/20142013 Inactive cyclobenzaprine 10 mg tablet RxNorm: 112862 1 Tablet(s) PO as needed TAKE 1 TABLET BY MOUTH EVERY 8 HOURS NEEDED 01/13/2014 02/17/2014 Inactive Anusol-HC 25 mg suppository RxNorm: 2812273 1 SUPPOSITORY RTL PRN ONE PER RECTUM NEEDED, UP TO TWICE DAILY FOR HEMORRHOID, NO MORE THAN 7 DAYS IN A ROW 01/10/2014 02/06/2014 Inactive Activella 0.5 mg-0.1 mg tablet RxNorm: 8844352 1 Tablet(s) PO daily TAKE 1 TABLET BY MOUTH DAILY FOR MENOPAUSAL SYMPTOM 01/08/2014 05/01/2014 Inactive gabapentin 600 mg tablet RxNorm: 006069 1.5 Tablet(s) PO TID 02/18/2014 Inactive gabapentin 600 mg tablet RxNorm: 706915 1.5 Tablet(s) PO TID 01/01/2014 Inactive hydrocodone 7.5 mg-acetaminophen 300 mg tablet RxNorm: 852613 Tablet(s) PO TAKE 1 TABLET BY MOUTH EVERY 6 HOURS NEEDED FOR PAIN 12/12/2013 01/23/2014 Inactive ( Appended: Controlled substance eRx refill - RxReferenceNumber: [id number]|1|0|1 ) Levaquin 250 mg tablet RxNorm: 121650 1 Tablet(s) PO daily 12/18/2013 Inactive 2 tabs today then 1 tab daily until gone Diflucan 150 mg tablet RxNorm: 740855 1 Tablet(s) PO daily 12/16/2013 Inactive do not stat until levaquin is completed Cartia XT 180 mg capsule,extended release RxNorm: 949764 1 CAPSULE(S) PO DAILY TAKE 1 CAPSULE BY MOUTH AT BEDTIME ..TAKE THIS IN ADDITION TO 240 MG IN THE MORNING 12/12/2013 12/06/2014 Inactive diltiazem ER (XR/XT) 240 mg capsule,extended release, controlled RxNorm: 260035 1 Capsule(s) PO daily TAKE 1 CAPSULE BY MOUTH EVERY DAY 11/28/2014 Inactive Effexor XR 37.5 mg capsule,extended release RxNorm: 649342 Capsule(s) PO TAKE 2 CAPSULES BY MOUTH EVERY MORNING AND 1 CAPSULE BY MOUTH EVERY NIGHT AT BEDTIME 12/04/2013 07/06/2014 Inactive Lasix 20 mg tablet RxNorm: TABLET(S) PO TAKE 2 TABLETS BY MOUTH EVERY MORNING AND 1 TABLET BY MOUTH AT 3 PM 12/04/2013 12/09/2014 Inactive Voltaren 1 % topical gel RxNorm: 567407 4 Gram(s) TOP QID 11/2703/26/2014 Inactive Cartia XT 180 mg capsule,extended release RxNorm: 948315 1 Capsule(s) PO daily TAKE 1 CAPSULE BY MOUTH AT BEDTIME ..TAKE THIS IN ADDITION TO 240 MG IN THE MORNING 11/27/2013 01/12/2015 Inactive Lasix 20 mg tablet RxNorm: TABLET(S) PO TAKE 2 TABLETS BY MOUTH EVERY MORNING AND 1 TABLET BY MOUTH AT 3 PM 11/26/2013 02/19/2014 Inactive colestipol 1 gram tablet RxNorm: 8630502 1 Tablet(s) PO BID TAKE 1 TABLET BY MOUTH TWICE DAILY 11/26/2013 11/20/2014 Inactive cyclobenzaprine 10 mg tablet RxNorm: 881225 Tablet(s) PO TAKE 1 TABLET BY MOUTH EVERY 8 HOURS NEEDED 11/21/20132013 Inactive Diflucan 150 mg tablet RxNorm: 123217 1 Tablet(s) PO daily TAKE 1 TABLET BY MOUTH EVERY OTHER DAY FOR 8 DOSES 11/14/201306/2013 Inactive peak flow meter-inh assist dev kit RxNorm: 1 dose Miscellaneous PRN 11/14/2013 10/27/2017 Inactive Effexor XR 37.5 mg capsule,extended release RxNorm: 552126 Capsule(s) PO TAKE 2 CAPSULES BY MOUTH EVERY MORNING AND 1 CAPSULE BY MOUTH EVERY NIGHT AT BEDTIME 11/04/2013 12/03/2013 Inactive Anusol-HC 25 mg suppository RxNorm: 0687118 1 Suppository RTL PRN one per rectum as needed, up to twice daily for hemorrhoid, no more than 7 days in a row 10/23/2013 10/22/2013 Inactive Anusol-HC 25 mg suppository RxNorm: 8257632 1 Suppository RTL PRN one per rectum as needed, up to twice daily for hemorrhoid, no more than 7 days in a row 10/23/2013 01/09/2014 Inactive Activella 0.5 mg-0.1 mg tablet RxNorm: 0726659 Tablet(s) PO TAKE 1 TABLET BY MOUTH DAILY FOR MENOPAUSAL SYMPTOM 10/21/2013 01/07/2014 Inactive cyclobenzaprine 10 mg tablet RxNorm: 713908 Tablet(s) PO TAKE 1 TABLET BY MOUTH EVERY 8 HOURS NEEDED 10/21/20132013 Inactive Lasix 20 mg tablet RxNorm: 450855 Tablet(s) PO TAKE 2 TABLETS BY MOUTH EVERY MORNING AND 1 TABLET BY MOUTH AT 3 PM 10/17/2013 02/25/2016 Inactive Bactroban 2 % topical ointment RxNorm: 388054 1 Application TOP BID 10/10/2013 11/06/2013 Inactive Zofran 4 mg tablet RxNorm: 379820 1 Tablet(s) PO Q4-6H 201303/20/2014 Inactive Bactroban 2 % topical ointment RxNorm: 039205 1 Application TOP BID 09/27/2013 10/09/2013 Inactive hydrocodone 5 mg-acetaminophen 325 mg tablet RxNorm: 940936 Tablet(s) PO TAKE 1 TABLET BY MOUTH EVERY 6 HOURS NEEDED FOR PAIN 09/26/2013 12/11/2013 Inactive ( Appended: Controlled substance eRx refill - RxReferenceNumber: [id number]|1|0|1 ) hydrocodone 5 mg-acetaminophen 325 mg tablet RxNorm: 919233 1 Tablet(s) PO Q6 PRN 09/26/2013 01/24/2014 Inactive cyclobenzaprine 10 mg tablet RxNorm: 572824 Tablet(s) PO TAKE 1 TABLET BY MOUTH EVERY 8 HOURS NEEDED 09/16/2013 No Stop Date Active omeprazole 20 mg capsule,delayed release RxNorm: 276319 Capsule(s) PO TAKE 1 CAPSULE BY MOUTH TWICE DAILY 09/02/2013 Inactive Lasix 20 mg tablet RxNorm: 236778 Tablet(s) PO TAKE 2 TABLETS BY MOUTH EVERY MORNING AND 1 TABLET BY MOUTH AT 3 PM 09/02/2013 04/10/2016 Inactive Diflucan 150 mg tablet RxNorm: 940689 Tablet(s) PO TAKE 1 TABLET BY MOUTH EVERY OTHER DAY FOR 8 DOSES 08/29/20132013 Inactive Effexor XR 37.5 mg capsule,extended release RxNorm: 668229 Capsule(s) PO TAKE 2 CAPSULES BY MOUTH EVERY MORNING AND 1 CAPSULE BY MOUTH EVERY NIGHT AT BEDTIME 08/29/2013 11/03/2013 Inactive diltiazem ER (XR/XT) 240 mg capsule,extended release, controlled RxNorm: 485444 Capsule(s) PO TAKE 1 CAPSULE BY MOUTH EVERY DAY 201312/03/2013 Inactive Xanax 0.5 mg tablet RxNorm: 504059 1 Tablet(s) PO TID PRN 11/2013 No Stop Date Active (Appended: Controlled substance eRx refill - RxReferenceNumber: [id number]| [id number]|1|0|1) colestipol 1 gram tablet RxNorm: 5767852 Tablet(s) PO TAKE 1 TABLET BY MOUTH TWICE DAILY 08/26/2013 11/25/2013 Inactive Victoza 3-Babak 0.6 mg/0.1 mL (18 mg/3 mL) subcutaneous pen injector RxNorm: 938603 1.2 Milligram(s) SQ daily 0.6 x 2 weeks then increase to 1.2mg daily 08/19/2013 12/16/2013 Inactive Synthroid 88 mcg tablet RxNorm: 561408 1 Tablet(s) PO daily 12/09/2013 Inactive Lasix 20 mg tablet RxNorm: Tablet(s) PO TAKE 2 TABLETS BY MOUTH EVERY MORNING AND 2 TABLETS BY MOUTH AT 3 PM 08/12/2013 10/18/2016 Inactive Xanax 0.5 mg tablet RxNorm: 187420 1 Tablet(s) PO TID PRN No Stop Date Active (Appended: Controlled substance eRx refill - RxReferenceNumber: [id number]| [id number]|1|0|1) Lasix 20 mg tablet RxNorm: 793384 Tablet(s) PO TAKE 2 TABLETS BY MOUTH EVERY MORNING AND 1 TABLET BY MOUTH AT 3 PM 08/07/2013 08/11/2013 Inactive Voltaren 1 % topical gel RxNorm: 288779 4 Gram(s) TOP QID 08/0111/26/2013 Inactive Zyvox 600 mg tablet RxNorm: 923536 1 Tablet(s) PO BID 201307/27/2013 Inactive please call the office is this is too expensive for the pt Zyvox 600 mg tablet RxNorm: 422897 1 Tablet(s) PO BID 201307/17/2013 Inactive hydrocodone 5 mg-acetaminophen 325 mg tablet RxNorm: 0629978 1 Tablet(s) PO Q6 PRN 07/15/2013 09/26/2013 Inactive Zofran 4 mg tablet RxNorm: 149441 1 Tablet(s) PO Q4-6H 201310/02/2013 Inactive Lasix 20 mg tablet RxNorm: Tablet(s) PO TAKE 2 TABLETS BY MOUTH EVERY MORNING AND 1 TABLET BY MOUTH AT 3 PM 07/11/2013 10/18/2016 Inactive cyclobenzaprine 10 mg tablet RxNorm: 962336 1 Tablet(s) PO Q8 PRN 06/27/2013 08/25/2013 Inactive gabapentin 600 mg tablet RxNorm: 976627 1.5 Tablet(s) PO TID 01/02/2014 Inactive Lasix 20 mg tablet RxNorm: 078894 Tablet(s) PO TAKE 2 TABLETS BY MOUTH EVERY MORNING AND 1 TABLET BY MOUTH AT 3 PM 06/17/2013 07/10/2013 Inactive hydrocodone 5 mg-acetaminophen 325 mg tablet RxNorm: 971570 1 Tablet(s) PO Q6 PRN 06/10/2013 07/14/2013 Inactive hydrocortisone 2.5 % rectal cream RxNorm: 702271 1 Suppository RTL BID PRN 06/10/2013 06/29/2013 Inactive Flexeril 10 mg tablet RxNorm: 859010 1 Tablet(s) PO Q8 PRN 06/0406/26/2013 Inactive diltiazem ER (XR/XT) 240 mg capsule,extended release, controlled RxNorm: 398380 Capsule(s) PO TAKE 1 CAPSULE BY MOUTH EVERY DAY 201310/26/2017 Inactive omeprazole 20 mg capsule,delayed release RxNorm: 521127 Capsule(s) PO TAKE 1 CAPSULE BY MOUTH TWICE DAILY 05/24/2013 Inactive colestipol 1 gram tablet RxNorm: 1280000 Tablet(s) PO TAKE 1 TABLET BY MOUTH TWICE DAILY 05/23/2013 04/21/2016 Inactive Januvia 100 mg tablet RxNorm: 739432 1 Tablet(s) PO daily 201308/18/2013 Inactive Activella 0.5 mg-0.1 mg tablet RxNorm: 398862 Tablet(s) PO TAKE 1 TABLET BY MOUTH DAILY FOR MENOPAUSAL SYMPTOM 05/17/2013 Inactive Xanax 0.5 mg tablet RxNorm: 078012 1 Tablet(s) PO TID PRN 08/06/2013 Inactive (Appended: Controlled substance eRx refill - RxReferenceNumber: [id number]| [id number]|1|0|1) Kenalog 40 mg/mL suspension for injection RxNorm: 6570887 Milliliter(s) Inj 05/07/2013 05/07/2013 Inactive levofloxacin 500 mg tablet RxNorm: 003859 1 Tablet(s) PO daily pt to take 500mg on day#1, 3, 5, 7 and 1/2 tablet on days 2, 4, 6, and 8 05/0705/14/2013 Inactive Lyrica 50 mg capsule RxNorm: 431150 1 Capsule(s) PO TID 201206/26/2013 Inactive hydrocodone 5 mg-acetaminophen 500 mg tablet RxNorm: 767682 1 Tablet(s) PO Q6 PRN 04/22/2013 06/09/2013 Inactive Zofran 4 mg tablet RxNorm: 483908 1 Tablet(s) PO Q4-6H 201207/14/2013 Inactive Zofran 4 mg tablet RxNorm: 369681 1 Tablet(s) PO Q6 PRN 04/0404/08/2013 Inactive hydrocodone 5 mg-acetaminophen 500 mg tablet RxNorm: 609452 1 Tablet(s) PO Q6 PRN 03/21/2013 04/21/2013 Inactive Diflucan 150 mg tablet RxNorm: 896526 1 Tablet(s) PO every other day 1 pill po every other day x 8 doses 03/19/201306/26 Inactive potassium chloride ER 10 mEq tablet,extended release RxNorm: 849914 1 Tablet(s) PO QDAY PRN take with lasix 03/07/201302/2014 Inactive potassium chloride ER 10 mEq tablet,extended release RxNorm: 711898 1 Tablet(s) PO QDAY PRN take with lasix 03/04/2013 Inactive fluconazole 150 mg tablet RxNorm: 222040 1 Tablet(s) PO daily 03/01/2013 02/28/2013 Inactive fluconazole 150 mg tablet RxNorm: 390855 1 Tablet(s) PO daily 03/01/2013 03/05/2013 Inactive Combivent 18 mcg-103 mcg/actuation Aerosol Inhaler RxNorm: 702108 2 Puff(s) INH QID 02/12/2013 02/12/2013 Inactive Zofran 4 mg tablet RxNorm: 915601 1 Tablet(s) PO Q6 PRN 02/1104/03/2013 Inactive Lasix 20 mg tablet RxNorm: 588865 1 Tablet(s) PO BID one pill in morning and one pill in afternoon (3pm) 02/04/2013 Inactive Xopenex HFA 45 mcg/actuation Aerosol Inhaler RxNorm: 886985 2 INH QID 01/29/2013 09/21/2015 Inactive Effexor XR 37.5 mg capsule,extended release RxNorm: 392646 2 q am and 1 at hs Capsule(s) PO TAKE 2 CAPSULES BY MOUTH EVERY MORNING AND 1 CAPSULE EVERY NIGHT AT BEDTIME 01/29/2013 02/15/2016 Inactive fluconazole 150 mg tablet RxNorm: 303742 1 Tablet(s) PO daily 01/29/2013 02/02/2013 Inactive hydrocodone 5 mg-acetaminophen 500 mg tablet RxNorm: 169413 1 Tablet(s) PO Q6 PRN 01/29/2013 03/20/2013 Inactive Effexor XR 37.5 mg capsule,extended release RxNorm: 009763 Capsule(s) PO 01/29/2013 08/28/2013 Inactive TAKE 2 CAPSULES BY MOUTH EVERY MORNING AND 1 CAPSULE EVERY NIGHT AT BEDTIME doxycycline hyclate 100 mg tablet RxNorm: 422015 1 Tablet(s) PO BID 01/01/2013 01/10/2013 Inactive doxycycline hyclate 100 mg tablet RxNorm: 641521 1 Tablet(s) PO BID 01/01/2013 12/31/2012 Inactive Synthroid 75 mcg tablet RxNorm: 645823 1 Tablet(s) PO daily 06/29/2013 Inactive Synthroid 75 mcg tablet RxNorm: 317194 1 Tablet(s) PO daily 12/31/2012 Inactive Xanax 0.5 mg tablet RxNorm: 090866 Tablet(s) PO TAKE 1/2 TO 1 TABLET BY MOUTH EVERY 8 HOURS NEEDED FOR ANXIETY 12/27/2012 05/06/2013 Inactive (Appended: Controlled substance eRx refill - RxReferenceNumber: [id number]|1|0|1) Lasix 20 mg tablet RxNorm: 584898 1 Tablet(s) PO daily 201202/03/2013 Inactive Santyl 250 unit/gram Topical Ointment RxNorm: 6062906 1 Application TOP daily 12/20/2012 12/29/2012 Inactive Levaquin 500 mg tablet RxNorm: 547875 1 Tablet(s) PO daily 05/201212/26/2012 Inactive acyclovir 400 mg tablet RxNorm: 738104 1 Tablet(s) PO TID 12/0312/09/2012 Inactive acyclovir 400 mg tablet RxNorm: 740597 1 Tablet(s) PO TID 12/0312/02/2012 Inactive fluconazole 150 mg tablet RxNorm: 077245 1 Tablet(s) PO daily 11/26/2012 11/30/2012 Inactive Effexor XR 37.5 mg capsule,extended release RxNorm: 244057 Capsule(s) PO TAKE 2 CAPSULES BY MOUTH EVERY MORNING AND 1 CAPSULE EVERY NIGHT AT BEDTIME 11/14/2012 01/28/2013 Inactive albuterol sulfate 1.25 mg/3 mL solution for nebulization RxNorm: 698332 3 Milliliter(s) INH TID 10/29/20122012 Inactive 1 box Cartia XT 180 mg capsule,extended release RxNorm: 986033 1 Capsule(s) PO daily TAKE 1 CAPSULE BY MOUTH AT BEDTIME ..TAKE THIS IN ADDITION TO 240 MG IN THE MORNING 10/29/2012 11/26/2013 Inactive acyclovir 800 mg tablet RxNorm: 786275 1 Tablet(s) PO BID 10/2911/04/2012 Inactive Diflucan 150 mg tablet RxNorm: 287124 1 Tablet(s) PO daily 10/14/2012 Inactive TAKE 1 TABLET BY MOUTH EVERY DAY Toprol XL 100 mg tablet,extended release RxNorm: 350563 1 Tablet(s) PO BID 10/11/2012 09/05/2013 Inactive Zithromax Z-Babak 250 mg tablet RxNorm: 201731 Tablet(s) PO UD as directed. 1 refill , please take back to back 10/05/2012 No Stop Date Active Kenalog 40 mg/mL Susp for Injection RxNorm: 4114847 1 Milliliter(s) Inj QID 09/21/2012 05/07/2013 Inactive fluconazole 150 mg tablet RxNorm: 925244 1 Tablet(s) PO every other day x 5 doses 09/12/2012 11/25/2012 Inactive levothyroxine 50 mcg tablet RxNorm: 441769 1 Tablet(s) PO daily 09/06/2012 12/31/2012 Inactive atorvastatin 40 mg tablet RxNorm: 639518 1 Tablet(s) PO daily 09/06/2012 08/31/2013 Inactive TAKE 1 TABLET BY MOUTH DAILY (THIS IS AN INCREASE IN DOSAGE) Xanax 0.5 mg tablet RxNorm: 735593 Tablet(s) PO TAKE 1/2 TO 1 TABLET BY MOUTH EVERY 8 HOURS NEEDED FOR ANXIETY 08/27/2012 12/26/2012 Inactive (Appended: Controlled substance eRx refill - RxReferenceNumber: [id number]|1|0|1) Zofran 4 mg tablet RxNorm: 631028 1 Tablet(s) PO Q6 PRN 08/1302/10/2013 Inactive Cipro 500 mg tablet RxNorm: 606880 1 Tablet(s) PO BID 201208/07/2012 Inactive Cipro 500 mg tablet RxNorm: 654784 1 Tablet(s) PO BID 201208/12/2012 Inactive Flagyl 500 mg tablet RxNorm: 062468 1 Tablet(s) PO TID 201208/12/2012 Inactive cefdinir 300 mg capsule RxNorm: 012818 1 Capsule(s) PO BID 08/201207/29/2012 Inactive nystatin 100,000 unit/mL Oral Susp RxNorm: 540586 6 Unit(s) PO QID 07/06/2012 07/15/2012 Inactive Kenalog 40 mg/mL Susp for Injection RxNorm: 0544264 1 Milliliter(s) Inj 07/06/2012 07/06/2012 Inactive Zithromax 500 mg tablet RxNorm: 4700231 1 Tablet(s) PO daily 07/10/2012 Inactive metformin 850 mg tablet RxNorm: 720967 1/2 Tablet(s) PO TID 09/201208/24/2012 Inactive TAKE 1 TABLET BY MOUTH IN THE MORNING, 1/2 TABLET AT NOON, AND 1 TABLET IN THE EVENING Lyrica 50 mg capsule RxNorm: 868195 1 Capsule(s) PO TID 201206/25/2012 Inactive Diflucan 150 mg tablet RxNorm: 042569 1 Tablet(s) PO daily 05/201206/25/2012 Inactive TAKE 1 TABLET BY MOUTH EVERY DAY Levaquin 500 mg tablet RxNorm: 154361 1 Tablet(s) PO daily 06/19/2012 Inactive Pneumovax 23 25 mcg/0.5 mL Injection RxNorm: 863087 1/2 Milliliter(s) Inj 06/07/2012 06/07/2012 Inactive metformin 850 mg tablet RxNorm: 932191 1/2 Tablet(s) PO BID 06/25/2012 Inactive TAKE 1 TABLET BY MOUTH IN THE MORNING, 1/2 TABLET AT NOON, AND 1 TABLET IN THE EVENING cefdinir 300 mg capsule RxNorm: 205476 1 Capsule(s) PO BID 02/201305/30/2012 Inactive cefdinir 300 mg capsule RxNorm: 878951 1 Capsule(s) PO BID 02/201306/06/2012 Inactive prednisone 10 mg tablets in a dose pack RxNorm: 435211 Tablet(s) PO UD 6-5-4-3-2- 1 05/31/2012 05/06/2013 Inactive Cipro 500 mg tablet RxNorm: 486477 1 Tablet(s) PO BID 201206/03/2012 Inactive Xanax 0.5 mg tablet RxNorm: 720393 Tablet(s) PO TAKE 1/2 TO 1 TABLET BY MOUTH EVERY 8 HOURS NEEDED FOR ANXIETY 05/28/2012 08/27/2012 Inactive (Appended: Controlled substance eRx refill - RxReferenceNumber: [id number]|1|0|1) Cartia XT 180 mg capsule,extended release RxNorm: 773644 Capsule(s) PO TAKE 1 CAPSULE BY MOUTH AT BEDTIME ..TAKE THIS IN ADDITION TO 240 MG IN THE MORNING 05/24/2012 10/28/2012 Inactive Diflucan 150 mg tablet RxNorm: 119528 1 Tablet(s) PO daily 06/201205/26/2012 Inactive TAKE 1 TABLET BY MOUTH EVERY DAY Cartia XT 240 mg capsule,extended release RxNorm: 589756 1 Capsule(s) PO QAM 05/23/2012 09/06/2012 Inactive in addition to 180mg q pm omeprazole 20 mg capsule,delayed release RxNorm: 374857 Capsule(s) PO TAKE 1 CAPSULE BY MOUTH TWICE DAILY 05/21/2012 Inactive diltiazem ER (XR/XT) 240 mg capsule,extended release, controlled RxNorm: 284450 1 Capsule(s) PO daily TAKE ONE CAPSULE BY MOUTH EVERY DAY 05/21/2012 05/30/2013 Inactive Toprol XL 25 mg tablet,extended release RxNorm: 243202 1 Tablet(s) PO QPM take with 50mg (1/2 tab of 100mg) each evening. Continue 100mg in the morning. 05/17/2012 05/27/2012 Inactive Activella 0.5 mg-0.1 mg tablet RxNorm: 8507474 Tablet(s) PO TAKE 1 TABLET BY MOUTH DAILY FOR MENOPAUSAL SYMPTOM 05/09/2012 05/16/2013 Inactive colestipol 1 gram tablet RxNorm: 1257698 Tablet(s) PO TAKE 1 TABLET BY MOUTH TWICE DAILY 05/08/2012 04/21/2016 Inactive Kenalog 40 mg/mL Susp for Injection RxNorm: 0383875 1 Milliliter(s) Inj 05/02/2012 05/02/2012 Inactive Xanax 0.5 mg tablet RxNorm: 200118 Tablet(s) PO 04/16/2012 05/28/2012 Inactive TAKE 1/2 TO 1 TABLET BY MOUTH EVERY 8 HOURS NEEDED FOR ANXIETY (Appended: Controlled substance eRx refill - RxReferenceNumber: [id number]|1|0|1) Diflucan 150 mg tablet RxNorm: 912356 1 Tablet(s) PO daily 05/22/2012 Inactive TAKE 1 TABLET BY MOUTH EVERY DAY Cipro 500 mg tablet RxNorm: 844790 1 Tablet(s) PO BID 201104/19/2012 Inactive Zithromax Z-Babak 250 mg tablet RxNorm: 739773 Tablet(s) PO UD 05/30/2012 Inactive metformin 850 mg tablet RxNorm: 288310 Tablet(s) PO take one pill by mouth in AM, 1/2 at noon, and 1 pill in the evening. 03/16/2012 06/06/2012 Inactive TAKE 1 TABLET BY MOUTH IN THE MORNING, 1/2 TABLET AT NOON, AND 1 TABLET IN THE EVENING Xanax 0.5 mg tablet RxNorm: 363302 Tablet(s) PO 03/05/2012 04/15/2012 Inactive TAKE 1/2 TO 1 TABLET BY MOUTH EVERY 8 HOURS NEEDED FOR ANXIETY (Appended: Controlled substance [facility]Rx refill [id number]|1|0|1) potassium chloride ER 10 mEq tablet,extended release RxNorm: 711083 1 Tablet(s) PO QDAY PRN take with lasix 03/05/201204/2013 Inactive potassium chloride ER 10 mEq tablet,extended release RxNorm: 666383 1 Tablet(s) PO QDAY PRN take with lasix 02/28/2012 Inactive Lasix 20 mg tablet RxNorm: 614081 Tablet(s) PO QDAY PRN 02/2708/25/2012 Inactive doxycycline hyclate 100 mg capsule RxNorm: 687447 1 Capsule(s) PO BID 02/27/2012 03/04/2012 Inactive Effexor XR 37.5 mg capsule,extended release RxNorm: 997521 Capsule(s) PO 02/26/2012 01/28/2013 Inactive TAKE 2 CAPSULES BY MOUTH EVERY MORNING AND 1 CAPSULE EVERY NIGHT AT BEDTIME Lomotil 2.5 mg-0.025 mg tablet RxNorm: 0213144 Tablet(s) PO 07/201103/05/2012 Inactive 1 after each loose bm limit 4 per day doxycycline hyclate 100 mg capsule RxNorm: 178518 1 Capsule(s) PO BID 02/15/2012 02/21/2012 Inactive Diflucan 150 mg tablet RxNorm: 299949 Tablet(s) PO daily 201102/21/2012 Inactive TAKE 1 TABLET BY MOUTH EVERY DAY colestipol,micronized 1 gram tablet RxNorm: 0724564 Tablet(s) PO 02/06/2012 04/21/2016 Inactive TAKE 1 TABLET BY MOUTH TWICE DAILY Effexor XR 37.5 mg capsule,extended release RxNorm: 011002 Capsule(s) PO 02/06/2012 02/16/2016 Inactive TAKE 2 CAPSULES BY MOUTH EVERY MORNING AND 1 CAPSULE EVERY NIGHT AT BEDTIME potassium chloride ER 10 mEq tablet,extended release RxNorm: 578136 1 Tablet(s) PO QDAY PRN take with lasix 02/01/201212/2011 Inactive Levaquin 500 mg tablet RxNorm: 955571 1 Tablet(s) PO daily 04/201202/07/2012 Inactive Diflucan 150 mg tablet RxNorm: 252097 Tablet(s) PO 01/27/2012 02/14/2012 Inactive TAKE 1 TABLET BY MOUTH EVERY DAY Effexor XR 37.5 mg capsule,extended release RxNorm: 772989 Capsule(s) PO 01/05/2012 02/05/2012 Inactive TAKE 2 CAPSULES BY MOUTH EVERY MORNING , AND 1 CAPSULE BY MOUTH EVERY NIGHT AT BEDTIME Effexor XR 37.5 mg capsule,extended release RxNorm: 291225 Capsule(s) PO 12/29/2011 01/04/2012 Inactive TAKE 2 CAPSULES BY MOUTH EVERY MORNING , AND 1 CAPSULE BY MOUTH EVERY NIGHT AT BEDTIME Diflucan 150 mg tablet RxNorm: 799097 Tablet(s) PO 12/29/2011 04/09/2012 Inactive TAKE 1 TABLET BY MOUTH EVERY DAY Cipro 500 mg tablet RxNorm: 960589 1 Tablet(s) PO BID 201101/07/2012 Inactive Toprol XL 100 mg tablet,extended release RxNorm: 237590 Tablet(s) PO as doctor directed one tab in am and 1/2 at night 11/30/2011 10/10/2012 Inactive Phenergan 25 mg/mL Injection RxNorm: 802009 Milliliter(s) Inj 11/30/2011 11/30/2011 Inactive Toprol XL 100 mg 24 hr Tab RxNorm: 886305 1.5 Tablet(s) PO as doctor directed one tab in am and 1/2 at night 11/17/201102/2012 Inactive Xopenex HFA 45 mcg/actuation Aerosol Inhaler RxNorm: 427690 2 INH QID 11/08/2011 12/01/2012 Inactive Effexor XR 150 mg 24 hr Cap RxNorm: 036831 1 Capsule(s) PO daily 10/24/2011 01/04/2012 Inactive Xanax 0.5 mg tablet RxNorm: 965633 1/2-1 Tablet(s) PO Q8 PRN 10/20/2011 03/05/2012 Inactive levothyroxine 25 mcg tablet RxNorm: 957217 Tablet(s) PO 201109/05/2012 Inactive TAKE 1 TABLET BY MOUTH DAILY Xanax 0.5 mg Tab RxNorm: 513754 1/2-1 Tablet(s) PO Q8 PRN 09/26/2011 10/19/2011 Inactive potassium chloride ER 10 mEq Tab RxNorm: 387314 1 Tablet(s) PO daily 09/20/2011 09/24/2011 Inactive Lasix 20 mg Tab RxNorm : 662548 1 Tablet(s) PO daily 09/20/2011 09/24/2011 Inactive Xanax 0.5 mg Tab RxNorm: 539336 1/2-1 Tablet(s) PO Q8 PRN 09/12/2011 09/25/2011 Inactive Xanax 0.5 mg Tab RxNorm: 484414 1/2-1 Tablet(s) PO Q8 PRN 08/24/2011 09/11/2011 Inactive Lipitor 20 mg tablet RxNorm: 934774 Tablet(s) PO 08/22/2011 09/05/2012 Inactive TAKE 1 TABLET BY MOUTH DAILY (THIS IS AN INCREASE IN DOSAGE) Cipro 500 mg Tab RxNorm: 507223 1 Tablet(s) PO BID 201110/24/2011 Inactive Flagyl 500 mg Tab RxNorm: 378189 1 Tablet(s) PO TID 201110/24/2011 Inactive Diflucan 150 mg Tab RxNorm: 943799 1 Tablet(s) PO daily 201110/24/2011 Inactive Kenalog 40 mg/mL Susp for Injection RxNorm: 0251933 1 Milliliter(s) Inj 08/01/2011 10/24/2011 Inactive FreeStyle Lancets RxNorm: 1 test Miscellaneous TID 201107/08/2014 Inactive dispense quantity sufficient for three times daily testing for diabetes FreeStyle Test Strips RxNorm: 1 Miscellaneous BID 07/21/2011 08/13/2012 Inactive please give lancets alsodx 250.02 Xanax 0.25 mg Tab RxNorm: 427739 1 Tablet(s) PO Q8 PRN 07/06 No Stop Date Active colestipol 1 gram Tab RxNorm: 4552536 Tablet(s) PO 07/04/2011 04/21/2016 Inactive TAKE 1 TABLET BY MOUTH TWICE DAILY DIRECTED colestipol 1 gram tablet RxNorm: 3370199 1 Tablet(s) PO BID 07/03/2011 Inactive Cartia XT 180 mg capsule,extended release RxNorm: 437067 1 Capsule(s) PO QHS 06/30/2011 11/16/2011 Inactive in addition to 240mg q am venlafaxine 37.5 mg Tab RxNorm: 018876 1 Tablet(s) PO BID 06/2406/29/2011 Inactive prednisone 5 mg Tab RxNorm: 540528 Tablet(s) PO UD 2011 10/24/2011 Inactive six day taper #21 Lyrica 50 mg capsule RxNorm: 831255 1 Capsule(s) PO TID 201108/18/2011 Inactive Diflucan 150 mg tablet RxNorm: 170573 1 Tablet(s) PO daily 06/24/2011 Inactive levofloxacin 500 mg Tab RxNorm: 881623 1 Tablet(s) PO daily 08/15/2011 Inactive azithromycin 250 mg Tab RxNorm: 702501 PO 05/23/2011 06/20/2011 Inactive omeprazole 20 mg capsule,delayed release RxNorm: 406532 Capsule(s) PO 05/10/2011 05/20/2012 Inactive TAKE 1 CAPSULE BY MOUTH TWICE DAILY;Patient requests 90 day supply diltiazem ER (XR/XT) 240 mg capsule,extended release, controlled RxNorm: 103360 Capsule(s) PO 04/19/2011 05/21/2012 Inactive TAKE 1 CAPSULE BY MOUTH EVERY MORNING;Patient requests 90 day supply Kenalog 40 mg/mL Susp for Injection RxNorm: 1441666 1 Milliliter(s) Inj 04/18/2011 06/20/2011 Inactive clindamycin 300 mg Cap RxNorm: 627900 1 Capsule(s) PO BID 04/1806/20/2011 Inactive lisinopril-hydrochlorothiazide 20 mg-12.5 mg Tab RxNorm: 699379 2 Tablet(s) PO daily 04/18/2011 10/24/2011 Inactive fluconazole 150 mg Tab RxNorm: 607899 1 Tablet(s) PO daily 07/201006/20/2011 Inactive Activella 0.5 mg-0.1 mg tablet RxNorm: 6866909 Tablet(s) PO 05/201005/08/2012 Inactive TAKE 1 TABLET BY MOUTH DAILY FOR MENOPAUSAL SYMPTOM diltiazem ER (XR/XT) 240 mg Continuous Release Cap RxNorm: 500906 1 Capsule(s) PO daily 03/17/2011 03/16/2011 Inactive diltiazem ER (XR/XT) 240 mg Continuous Release Cap RxNorm: 786044 Capsule(s) PO 03/17/2011 06/20/2011 Inactive TAKE 1 CAPSULE BY MOUTH EVERY MORNING metformin 850 mg tablet RxNorm: 567563 1 Tablet(s) PO as doctor directed take one pill by mouth in AM, 1/2 at noon, and 1 pill in the evening. 01/21/2011 04/20/2011 Inactive Xopenex 1.25 mg/3 mL solution for nebulization RxNorm: 683905 3 Milliliter(s) INH Q6 PRN No Start Date Active Lomotil 2.5 mg-0.025 mg tablet RxNorm: 3705943 Tablet(s) PO No Start Date 02/21/2012 Inactive 1 after each loose bm limit 4 per day Novolog Flexpen U-100 Insulin aspart 100 unit/mL subcutaneous RxNorm: 5930391 10 Unit(s) SQ AC No Start Date 10/26 Inactive with sliding scale-Dr Yanna Judd FlexTouch U-100 100 unit/mL (3 mL) subcutaneous insulin pen RxNorm: 9380186 40 Unit(s) SQ daily No Start Date Inactive gabapentin 600 mg tablet RxNorm: 158393 1 Tablet(s) PO TID No Start Date 06/26/2013 Inactive Effexor XR 37.5 mg capsule,extended release RxNorm: 060118 1 Capsule(s) PO BID No Start Date 10/23/2011 Inactive Levemir FlexTouch 100 unit/mL (3 mL) subcutaneous insulin pen RxNorm: 308597 50 Unit(s) SQ BID No Start Date 04/24/2017 Inactive Combivent Respimat 20 mcg-100 mcg/actuation solution for inhalation RxNorm: 6097015 1 INH QID No Start Date 05/11/2014 Inactive Xanax 0.5 mg Tab RxNorm: 242679 1/2-1 Tablet(s) PO Q8 PRN No Start Date 08/23/2011 Inactive Xopenex HFA 45 mcg/actuation Aerosol Inhaler RxNorm: 895090 2 INH QID No Start Date 11/07/2011 Inactive promethazine 25 mg tablet RxNorm: 354590 1 Tablet(s) PO Q8 as needed No Start Date 08/12/2015 Inactive colestipol 1 gram Tab RxNorm: 4749520 1 Tablet(s) PO BID No Start Date 07/03/2011 Inactive Cartia XT 240 mg capsule,extended release RxNorm: 055255 1 Capsule(s) PO QAM No Start Date 05/22/2012 Inactive in addition to 180mg q pm Lipitor 20 mg Tab RxNorm: 523164 1 Tablet(s) PO daily No Start Date 08/21/2011 Inactive FreeStyle Test Strips RxNorm: 1 Miscellaneous BID No Start Date 07/20/2011 Inactive Jerry Marley U-300 Insulin 300 unit/mL (1.5 mL) subcutaneous pen RxNorm: 5196638 40 Unit(s) SQ BID No Start Date 10/26/2017 Inactive Diflucan 150 mg tablet RxNorm: 037748 1 Tablet(s) PO daily 1 pill po every other day x 8 doses No Start Date 03/18/2013 Inactive hydrocodone 5 mg-acetaminophen 500 mg tablet RxNorm: 952674 1 Tablet(s) PO Q6 PRN No Start Date 01/28/2013 Inactive Lasix 20 mg tablet RxNorm: 462370 Tablet(s) PO QDAY PRN No Start Date 02/27/2012 Inactive Promethazine VC 6.25 mg-5 mg/5 mL Syrup RxNorm: 6884511 1-2 PO Q6 PRN No Start Date 10/07/2013 Inactive promethazine 25 mg tablet RxNorm: 508593 1 Tablet(s) PO Q6 PRN No Start Date 02/09/2017 Inactive digoxin 125 mcg tablet RxNorm: 585676 1 Tablet(s) PO daily No Start Date 06/20/2017 Inactive Xanax 0.25 mg Tab RxNorm: 072508 1 Tablet(s) PO Q8 PRN No Start Date 07/05/2011 Inactive Diflucan 150 mg tablet RxNorm: 670981 1 Tablet(s) PO every other day x 4 doses No Start Date 04/09/2014 Inactive Carafate 100 mg/mL Oral Susp RxNorm: 558327 2 Teaspoon(s) PO daily No Start Date 10/24/2011 Inactive prednisone 5 mg Tab RxNorm: 060582 Tablet(s) PO UD No Start Date 06/22/2011 Inactive six day taper #21 Tessalon Perles 100 mg capsule RxNorm: 845372 2 Capsule(s) PO TID as needed No Start Date 05/16/2017 Inactive Bactroban 2 % topical ointment RxNorm: 031718 1 Application TOP BID No Start Date 09/26/2013 Inactive Phenergan 25 mg tablet RxNorm: 999887 1 Tablet(s) PO Q8 as needed nausea No Start Date 06/28/2015 Inactive flecainide 50 mg tablet RxNorm: 617360 1 Tablet(s) PO BID No Start Date 02/01/2016 Inactive Activella 0.5 mg-0.1 mg Tab RxNorm: 6979966 1 Tablet(s) PO daily No Start Date 03/21/2011 Inactive hydrocodone 10 mg-acetaminophen 325 mg tablet RxNorm: 990668 1 Tablet(s) PO Q6 as needed No Start Date 02/04/2016 Inactive lisinopril 20 mg Tab RxNorm: 545510 1 Tablet(s) PO daily No Start Date 06/20/2011 Inactive prednisone 10 mg tablets in a dose pack RxNorm: 983919 Tablet(s) PO UD 6-5-4-3-2- 1 No Start Date 05/30/2012 Inactive hydrocodone 7.5 mg-acetaminophen 325 mg tablet RxNorm: 801246 1 Tablet(s) PO Q6 PRN No Start Date 10/06/2013 Inactive hyoscyamine 0.125 mg sublingual tablet RxNorm: 5433511 1 Tablet(s) SL TID as needed No Start Date 05/16/2017 Inactive Cartia XT 180 mg 24 hr Cap RxNorm: 950682 1 Capsule(s) PO QHS No Start Date 06/29/2011 Inactive in addition to 240mg q am Zofran 4 mg tablet RxNorm: 787534 1 Tablet(s) PO Q6 PRN No Start Date 08/12/2012 Inactive omeprazole 20 mg Cap, Delayed Release RxNorm: 846449 1 Capsule(s) PO BID No Start Date 05/09/2011 Inactive venlafaxine 37.5 mg Tab RxNorm: 614996 1 Tablet(s) PO BID No Start Date 10/24/2011 Inactive Vesicare 10 mg tablet RxNorm: 528328 1 Tablet(s) PO daily No Start Date 09/28/2015 Inactive levothyroxine 25 mcg Tab RxNorm: 500094 1 Tablet(s) PO daily No Start Date 10/18/2011 Inactive Zithromax Z-Babak 250 mg tablet RxNorm: 984587 Tablet(s) PO UD No Start Date 04/01/2012 Inactive Januvia 100 mg tablet RxNorm: 742304 1 Tablet(s) PO daily No Start Date 05/22/2013 Inactive Lantus Solostar 100 unit/mL (3 mL) subcutaneous insulin pen RxNorm: 587122 Unit( s) SQ No Start Date 04/17/2017 Inactive 10 units q am and 50units at night fluconazole 150 mg tablet RxNorm: 244914 1 Tablet(s) PO every other day x 5 doses No Start Date 09/11/2012 Inactive Toprol XL 25 mg 24 hr Tab RxNorm: 500932 1 Tablet(s) PO daily No Start Date 11/16/2011 Inactive Medication Administered Medication Codes Instructions Start Date Status Kenalog 40 mg/mL suspension for injection RxNorm: 2386288 Milliliter 06/26/2015 No longer Active Kenalog 40 mg/mL suspension for injection RxNorm: 9361659 Milliliter 05/07/2013 No longer Active Kenalog 40 mg/mL Susp for Injection RxNorm: 4126838 1Milliliter 07/06/2012 No longer Active Pneumovax 23 25 mcg/0.5 mL Injection RxNorm: 169933 1/2Milliliter 06/07/2012 No longer Active Kenalog 40 mg/mL Susp for Injection RxNorm: 8998161 1Milliliter 05/02/2012 No longer Active Phenergan 25 mg/mL Injection RxNorm: 984213 Milliliter 11/30/2011 No longer Active Immunizations Vaccine Codes Date Status Pneumococcal (Adult) CVX: 133 02/26/2016 completed PPD Unknown 12/25/2014 completed PPD Unknown 09/27/2013 completed Pneumococcal CVX: 33 06/07/2012 completed Pneumococcal (Adult) CVX: 33 06/07/2012 completed Assessments Condition Codes Effective Dates Dysuria ICD-10: R30.0 ICD-9: 788.1 12/14/2017 Essential (primary) hypertension ICD-10: I10 ICD-9: 401.1 11/27/2017 Encounter for general adult medical examination with abnormal findings ICD-10: Z00.01 ICD-9: V70.0 10/27/2017 Encounter for screening mammogram for malignant neoplasm of breast ICD-10: Z12.31 ICD-9: V76.12 10/27/2017 Type 2 diabetes mellitus with hyperglycemia ICD-10: E11.65 ICD-9: 250.02 09/27/2017 Unspecified injury of head, initial encounter ICD-10: S09.90XA ICD-9: 959.01 09/27/2017 Chronic pain syndrome ICD-10: G89.4 ICD-9: 338.4 09/15/2017 Type 2 diabetes mellitus with hyperglycemia ICD-10: E11.65 ICD-9: 250.00 09/15/2017 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 [...] (adult) (pediatric) ICD-10: G47.33 ICD-9: 327.23 01/16/2017 Generalized anxiety disorder ICD-10: F41.1 ICD-9: 300.02 01/16/2017 Hypothyroidism, unspecified ICD-10: E03.9 ICD-9: 244.9 [...] maxillary sinusitis ICD-10: J01.01 ICD-9: 461.0 09/23/2016 Low back pain ICD-10: M54.5 ICD-9: 724.2 09/23/2016 Cervicalgia ICD-10: M54.2 ICD-9: 723.1 09/13/2016 [...] For Visit Effective Dates Notes diabetes mellitus 11/27/2017 Annual Medicare Wellness Exam [...] Observation Code Item Item Code Result Date Culture Urine [id number] URINE CULTURE SEE NOTES 12/01/2017 Urine Culture Ucult Complete >100,000 col/ml aerobic growth sent to ref lab 11/29/2017 Comp Metabolic Zxx208 NA 135 mEq/L 08/21/2017 Comp Metabolic Sqh926 K 4.6 mEq/L 08/21/2017 Comp Metabolic Xuh242 CL 92 mEq/L 08/21/2017 Comp Metabolic Djh615 CO2 32.0 mEq/L 08/21/2017 Comp Metabolic Osr622 ANION GAP 16 08/21/2017 Comp Metabolic Wqu857 GLUCOSE 298 mg/dL 08/21/2017 Comp Metabolic Waz079 Creat 1.1 mg/dL 08/21/2017 Comp Metabolic Heo213 eGFR 54 ml/min/1.73m2 08/21/2017 Comp Metabolic Ipk042 BUN 22 mg/dL 08/21/2017 Comp Metabolic Teg715 B/C Ratio 20.6 Ratio 08/21/2017 Comp Metabolic Dck352 CALCIUM 9.3 mg/dL 08/21/2017 Comp Metabolic Jzg296 ALK PHOS 145 U/L 08/21/2017 Comp Metabolic Bwb986 AST(SGOT) 31 U/L 08/21/2017 Comp Metabolic Mcl736 ALT(SGPT) 19 U/L 08/21/2017 Comp Metabolic Zlr080 BILI T 0.3 mg/dL 08/21/2017 Comp Metabolic Uwz193 ALBUMIN 3.8 g/dL 08/21/2017 Comp Metabolic Mgo690 TPRO 7.1 g/dL 08/21/2017 Comp Metabolic Vyy643 GLOB 3.3 g/dL 08/21/2017 Comp Metabolic Dtg599 A/G Ratio 1.2 Ratio 08/21/2017 Comp Metabolic Wic587 Osmo 285 mOsmo 08/21/2017 Cbc With Differential Ord2 WBC 9.80 K/ul 08/18/2017 Cbc With Differential Ord2 RBC 4.30 M/ul 08/18/2017 Cbc With Differential Ord2 HGB 12.0 g/dl 08/18/2017 Cbc With Differential Ord2 Neut% 69.1 % 08/18/2017 Cbc With Differential Ord2 HCT 37.9 % 08/18/2017 Cbc With Differential Ord2 Lymph% 20.9 % 08/18/2017 Cbc With Differential Ord2 MCV 88.1 fl 08/18/2017 Cbc With Differential Ord2 [place]% 6.9 % 08/18/2017 Cbc With Differential Ord2 [...] 2.05 K/ul 08/18/2017 Cbc With Differential Ord2 [place] ABS# 0.7 K/ul 08/18/2017 Cbc With Differential Ord2 Eos ABS# 0.3 K/ul 08/18/2017 Cbc With Differential Ord2 Baso ABS# 0.0 K/ul 08/18/2017 %Hba1C Bjl928 % HbA1c 25779-3 11.5 % 06/13/2017 %Hba1C Opt280 Gluc Ave 283 mg/dL 06/13/2017 Cbc With [...] 27.6 pg 03/27/2017 Cbc With Differential Ord2 [place]% 7.2 % 03/27/2017 Cbc With Differential Ord2 MCHC 30.8 pg 03/27/2017 Cbc With Differential Ord2 Eos% 1.7 % 03/27/2017 Cbc With Differential Ord2 PLT 365 K/ul 03/27/2017 Cbc With Differential Ord2 Baso% 0.4 % 03/27/2017 Cbc With Differential Ord2 RDW 14.9 % 03/27/2017 Cbc With Differential Ord2 Neut ABS# 7.48 K/ul 03/27/2017 Cbc With Differential Ord2 Lymph ABS# 2.11 K/ul 03/27/2017 Cbc With Differential Ord2 [place] ABS# 0.8 K/ul 03/27/2017 Cbc With Differential Ord2 Eos ABS# 0.2 K/ul 03/27/2017 Cbc With Differential Ord2 Baso ABS# 0.0 K/ul 03/27/2017 Comp Metabolic Ikv930 NA 136 mEq/L 03/27/2017 Comp Metabolic Lzm858 K 4.1 mEq/L 03/27/2017 Comp Metabolic Udi300 CL 90 mEq/L 03/27/2017 Comp Metabolic Zrr814 CO2 34.0 mEq/L 03/27/2017 Comp Metabolic Xtv666 ANION GAP 16 03/27/2017 Comp Metabolic Pdk553 GLUCOSE 325 mg/dL 03/27/2017 Comp Metabolic Coh413 Creat 1.0 mg/dL 03/27/2017 Comp Metabolic Agp174 eGFR 62 ml/min/1.73m2 03/27/2017 Comp Metabolic Lii322 BUN 15 mg/dL 03/27/2017 Comp Metabolic Yjl680 B/C Ratio 15.8 Ratio 03/27/2017 Comp Metabolic Zeq817 CALCIUM 9.5 mg/dL 03/27/2017 Comp Metabolic Ydi956 ALK PHOS 159 U/L 03/27/2017 Comp Metabolic Oam356 AST(SGOT) 57 U/L 03/27/2017 Comp Metabolic Fwt785 ALT(SGPT) 32 U/L 03/27/2017 Comp Metabolic Phs022 BILI T 0.4 mg/dL 03/27/2017 Comp Metabolic Aip409 ALBUMIN 4.3 g/dL 03/27/2017 Comp Metabolic Koe347 TPRO 7.3 g/dL 03/27/2017 Comp Metabolic Ffg681 GLOB 3.0 g/dL 03/27/2017 Comp Metabolic Zth904 A/G Ratio 1.4 Ratio 03/27/2017 Comp Metabolic Scj380 Osmo 285 mOsmo 03/27/2017 Digoxin Ord9 DIGOXIN 0.5 NG/ML 03/27/2017 Magnesium Ord90 Mag 2.4 mg/dL 02/27/2017 Comp Metabolic Wln053 NA 138 mEq/L 02/27/2017 Comp Metabolic Rcm532 K 4.2 mEq/L 02/27/2017 Comp Metabolic Lnb947 CL 91 mEq/L 02/27/2017 Comp Metabolic Glb217 CO2 36.0 mEq/L 02/27/2017 Comp Metabolic Rzb312 ANION GAP 15 02/27/2017 Comp Metabolic Asb802 GLUCOSE 297 mg/dL 02/27/2017 Comp Metabolic Jmu302 Creat 0.9 mg/dL 02/27/2017 Comp Metabolic Eig984 eGFR 71 ml/min/1.73m2 02/27/2017 Comp Metabolic Wxh623 BUN 12 mg/dL 02/27/2017 Comp Metabolic Jsb279 B/C Ratio 14.1 Ratio 02/27/2017 Comp Metabolic Nwj059 CALCIUM 9.0 mg/dL 02/27/2017 Comp Metabolic Xht683 ALK PHOS 146 U/L 02/27/2017 Comp Metabolic Yfa563 AST(SGOT) 28 U/L 02/27/2017 Comp Metabolic Hms994 ALT(SGPT) 12 U/L 02/27/2017 Comp Metabolic Dwb450 BILI T 0.3 mg/dL 02/27/2017 Comp Metabolic Fdb108 ALBUMIN 3.8 g/dL 02/27/2017 Comp Metabolic Ywl305 TPRO 6.6 g/dL 02/27/2017 Comp Metabolic Tcv144 GLOB 2.8 g/dL 02/27/2017 Comp Metabolic Vqs843 A/G Ratio 1.3 Ratio 02/27/2017 Comp Metabolic Wsu861 Osmo 286 mOsmo 02/27/2017 Comp Metabolic Foy221 NA 138 mEq/L 02/14/2017 Comp Metabolic Jca742 K 3.5 mEq/L 02/14/2017 Comp Metabolic Jri017 CL 95 mEq/L 02/14/2017 Comp Metabolic Ylo829 CO2 29.0 mEq/L 02/14/2017 Comp Metabolic Ais524 ANION GAP 18 02/14/2017 Comp Metabolic Kxj030 GLUCOSE 254 mg/dL 02/14/2017 Comp Metabolic Nvi728 Creat 1.0 mg/dL 02/14/2017 Comp Metabolic Dqo027 eGFR 62 ml/min/1.73m2 02/14/2017 Comp Metabolic Qqs228 BUN 14 mg/dL 02/14/2017 Comp Metabolic Lqm950 B/C Ratio 14.6 Ratio 02/14/2017 Comp Metabolic Qbi747 CALCIUM 8.6 mg/dL 02/14/2017 Comp Metabolic Xzi126 ALK PHOS 155 U/L 02/14/2017 Comp Metabolic Rch843 AST(SGOT) 42 U/L 02/14/2017 Comp Metabolic Spw698 ALT(SGPT) 28 U/L 02/14/2017 Comp Metabolic Niy846 BILI T 0.3 mg/dL 02/14/2017 Comp Metabolic Jbl142 ALBUMIN 3.6 g/dL 02/14/2017 Comp Metabolic Sag144 TPRO 6.2 g/dL 02/14/2017 Comp Metabolic Ypn343 GLOB 2.6 g/dL 02/14/2017 Comp Metabolic Pam915 A/G Ratio 1.4 Ratio 02/14/2017 Comp Metabolic Bnk058 Osmo 285 mOsmo 02/14/2017 Digoxin Ord9 DIGOXIN <0.2 NG/ML 02/14/2017 Tsh Ord6 hTSH II 3.30 uIU/mL 01/16/2017 %Hba1C Gqc729 % HbA1c 96518-1 12.4 % 01/16/2017 %Hba1C Yba283 Gluc Ave 309 mg/dL 01/16/2017 Sed Rate Ord21 ESR 33 mm/hr 01/16/2017 Cbc With Differential Ord2 WBC 8.12 [...] 28.0 pg 01/16/2017 Cbc With Differential Ord2 [place]% 7.3 % 01/16/2017 Cbc With Differential Ord2 MCHC 31.3 pg 01/16/2017 Cbc With Differential Ord2 Eos% 1.6 % 01/16/2017 Cbc With Differential Ord2 Baso% 0.4 % 01/16/2017 Cbc With Differential Ord2 PLT 344 K/ul 01/16/2017 Cbc With Differential Ord2 RDW 14.2 % 01/16/2017 Cbc With Differential Ord2 Neut ABS# 5.95 K/ul 01/16/2017 Cbc With Differential Ord2 Lymph ABS# 1.42 K/ul 01/16/2017 Cbc With Differential Ord2 [place] ABS# 0.6 K/ul 01/16/2017 Cbc With Differential Ord2 Eos ABS# 0.1 K/ul 01/16/2017 Cbc With Differential Ord2 Baso ABS# 0.0 K/ul 01/16/2017 Vitamin D 25 Oh Yog8844 VITAMIN D, 25 HYDROXY 8.99 ng/mL C-Reactive Protein Qnt Crqnt CRP 3.3 mg/dl 01/16/2017 Comp Metabolic Mhs645 NA 134 mEq/L 01/16/2017 Comp Metabolic Vkb443 K 4.0 mEq/L 01/16/2017 Comp Metabolic Zwp593 CL 89 mEq/L 01/16/2017 Comp Metabolic Nnl430 CO2 30.0 mEq/L 01/16/2017 Comp Metabolic Lly448 ANION GAP 19 01/16/2017 Comp Metabolic Xei293 GLUCOSE 496 Result Verified By Repeat Analysis mg/dL 01/16/2017 Comp Metabolic Twk984 Creat 0.8 mg/dL 01/16/2017 Comp Metabolic Tgx105 eGFR 73 ml/min/1.73m2 01/16/2017 Comp Metabolic Ihd781 BUN 13 mg/dL 01/16/2017 Comp Metabolic Izt317 B/C Ratio 15.7 Ratio 01/16/2017 Comp Metabolic Zum487 CALCIUM 8.8 mg/dL 01/16/2017 Comp Metabolic Lfp009 ALK PHOS 171 U/L 01/16/2017 Comp Metabolic Ibw939 AST(SGOT) 54 U/L 01/16/2017 Comp Metabolic Evw802 ALT(SGPT) 32 U/L 01/16/2017 Comp Metabolic Bom646 BILI T 0.3 mg/dL 01/16/2017 Comp Metabolic Jtb459 ALBUMIN 3.9 g/dL 01/16/2017 Comp Metabolic Tdt917 TPRO 6.5 g/dL 01/16/2017 Comp Metabolic Kbp169 GLOB 2.6 g/dL 01/16/2017 Comp Metabolic Msp229 A/G Ratio 1.5 Ratio 01/16/2017 Comp Metabolic Cdy471 Osmo 290 mOsmo 01/16/2017 Free T4 Bxj886 FREE T4 0.81 ng/dL 01/16/2017 Comp Metabolic Rhz326 NA 135 mEq/L 09/14/2016 Comp Metabolic Drl996 K 5.2 mEq/L 09/14/2016 Comp Metabolic Jwy320 CL 93 mEq/L 09/14/2016 Comp Metabolic Hzq079 CO2 26.0 mEq/L 09/14/2016 Comp Metabolic Gdj725 ANION GAP 21 09/14/2016 Comp Metabolic Mqj340 GLUCOSE 326 mg/dL 09/14/2016 Comp Metabolic Jeg178 Creat 1.0 mg/dL 09/14/2016 Comp Metabolic Gch744 eGFR 57 ml/min/1.73m2 09/14/2016 Comp Metabolic Rlk212 BUN 16 mg/dL 09/14/2016 Comp Metabolic Xfj095 B/C Ratio 15.5 Ratio 09/14/2016 Comp Metabolic Mir426 CALCIUM 9.2 mg/dL 09/14/2016 Comp Metabolic Azz851 ALK PHOS 160 U/L 09/14/2016 Comp Metabolic Eph216 AST(SGOT) 49 U/L 09/14/2016 Comp Metabolic Ziv209 ALT(SGPT) 32 U/L 09/14/2016 Comp Metabolic Tch534 BILI T 0.4 mg/dL 09/14/2016 Comp Metabolic Raf022 ALBUMIN 4.0 g/dL 09/14/2016 Comp Metabolic Epm067 TPRO 7.3 g/dL 09/14/2016 Comp Metabolic Lkb388 GLOB 3.3 g/dL 09/14/2016 Comp Metabolic Geq236 A/G Ratio 1.2 Ratio 09/14/2016 Comp Metabolic Axt874 Osmo 284 mOsmo 09/14/2016 %Hba1C Sde424 % HbA1c 00309-8 10.7 % 09/14/2016 %Hba1C Fio586 Gluc Ave 260 mg/dL 09/14/2016 Cbc With Differential Ord2 WBC 10.58 K/ul 09/14/2016 Cbc With Differential Ord2 RBC 4.75 M/ul 09/14/2016 Cbc With Differential Ord2 HGB 13.4 g/dl 09/14/2016 Cbc With Differential Ord2 HCT 41.3 % 09/14/2016 Cbc With Differential Ord2 Neut% 69.6 % 09/14/2016 Cbc With Differential Ord2 MCV 86.9 fl 09/14/2016 Cbc With Differential Ord2 Lymph% 19.8 % 09/14/2016 Cbc With Differential Ord2 [place]% 6.2 % 09/14/2016 Cbc With Differential Ord2 [...] 2.09 K/ul 09/14/2016 Cbc With Differential Ord2 [place] ABS# 0.7 K/ul 09/14/2016 Cbc With Differential Ord2 Eos ABS# 0.2 K/ul 09/14/2016 Cbc With Differential Ord2 Baso ABS# 0.3 K/ul 09/14/2016 Manual Differential Ord52 D-Neutr 62 % 09/14/2016 Manual Differential Ord52 D-[place] 1 % 09/14/2016 Manual Differential Ord52 D-Lymph 34 % 09/14/2016 Manual Differential Ord52 D-Eos 2 % 09/14/2016 Manual Differential Ord52 D-[place] 1 % 09/14/2016 Comp Metabolic Oju658 NA 134 mEq/L 08/10/2016 Comp Metabolic Lqg080 K 5.0 mEq/L 08/10/2016 Comp Metabolic Ynv741 CL 91 mEq/L 08/10/2016 Comp Metabolic Lui051 CO2 29.0 mEq/L 08/10/2016 Comp Metabolic Ulo949 ANION GAP 19 08/10/2016 Comp Metabolic Vtd325 GLUCOSE 291 mg/dL 08/10/2016 Comp Metabolic Inz901 Creat 0.9 mg/dL 08/10/2016 Comp Metabolic Xvw656 eGFR 68 ml/min/1.73m2 08/10/2016 Comp Metabolic Gbl163 BUN 20 mg/dL 08/10/2016 Comp Metabolic Cwu014 B/C Ratio 22.7 Ratio 08/10/2016 Comp Metabolic Hka802 CALCIUM 9.7 mg/dL 08/10/2016 Comp Metabolic Utn549 ALK PHOS 144 U/L 08/10/2016 Comp Metabolic Jla602 AST(SGOT) 62 U/L 08/10/2016 Comp Metabolic Azj956 ALT(SGPT) 37 U/L 08/10/2016 Comp Metabolic Slw351 BILI T 0.3 mg/dL 08/10/2016 Comp Metabolic Pva049 ALBUMIN 4.3 g/dL 08/10/2016 Comp Metabolic Gjx157 TPRO 7.3 g/dL 08/10/2016 Comp Metabolic Hmj015 GLOB 3.0 g/dL 08/10/2016 Comp Metabolic Yli643 A/G Ratio 1.5 Ratio 08/10/2016 Comp Metabolic Rgc744 Osmo 282 mOsmo 08/10/2016 Free T4 Czf714 FREE T4 0.89 ng/dL 08/09/2016 Tsh Ord6 [...] 17.7 % 08/09/2016 Cbc With Differential Ord2 [place]% 5.4 % 08/09/2016 Cbc With Differential Ord2 [...] 2.46 K/ul 08/09/2016 Cbc With Differential Ord2 [place] ABS# 0.8 K/ul 08/09/2016 Cbc With Differential [...] 87.4 fl 04/20/2016 Cbc With Differential Ord2 [place]% 6.3 % 04/20/2016 Cbc With Differential Ord2 [...] 2.63 K/ul 04/20/2016 Cbc With Differential Ord2 [place] ABS# 0.6 K/ul 04/20/2016 Cbc With Differential Ord2 Eos ABS# 0.2 K/ul 04/20/2016 Cbc With Differential Ord2 Baso ABS# 0.0 K/ul 04/20/2016 Comp Metabolic Dfz464 NA 133 mEq/L 04/11/2016 Comp Metabolic Rxa981 K 4.1 mEq/L 04/11/2016 Comp Metabolic Xmy561 CL 92 mEq/L 04/11/2016 Comp Metabolic Qbs577 CO2 30.0 mEq/L 04/11/2016 Comp Metabolic Ntf707 ANION GAP 15 04/11/2016 Comp Metabolic Bui014 GLUCOSE 414 mg/dL 04/11/2016 Comp Metabolic Qpw745 Creat 0.9 mg/dL 04/11/2016 Comp Metabolic Zbl568 eGFR 65 ml/min/1.73m2 04/11/2016 Comp Metabolic Nzf243 BUN 22 mg/dL 04/11/2016 Comp Metabolic Rxa194 B/C Ratio 23.9 Ratio 04/11/2016 Comp Metabolic Uif318 CALCIUM 9.2 mg/dL 04/11/2016 Comp Metabolic Ris396 ALK PHOS 145 U/L 04/11/2016 Comp Metabolic Nnw965 AST(SGOT) 22 U/L 04/11/2016 Comp Metabolic Dra176 ALT(SGPT) 21 U/L 04/11/2016 Comp Metabolic Dab243 BILI T 0.3 mg/dL 04/11/2016 Comp Metabolic Mtf602 ALBUMIN 3.9 g/dL 04/11/2016 Comp Metabolic Zzz860 TPRO 6.8 g/dL 04/11/2016 Comp Metabolic Qop270 GLOB 3.0 g/dL 04/11/2016 Comp Metabolic Rlg363 A/G Ratio 1.3 Ratio 04/11/2016 Comp Metabolic Vqn288 Osmo 287 mOsmo 04/11/2016 Cbc With Differential [...] 88.9 fl 04/11/2016 Cbc With Differential Ord2 [place]% 6.9 % 04/11/2016 Cbc With Differential Ord2 MCH 27.6 pg 04/11/2016 Cbc With Differential Ord2 MCHC 31.0 pg 04/11/2016 Cbc With Differential Ord2 Eos% 2.1 % 04/11/2016 Cbc With Differential Ord2 Baso% 0.3 % 04/11/2016 Cbc With Differential Ord2 PLT 307 K/ul 04/11/2016 Cbc With Differential Ord2 Neut ABS# 6.55 K/ul 04/11/2016 Cbc With Differential Ord2 RDW 15.1 % 04/11/2016 Cbc With Differential Ord2 Lymph ABS# 2.09 K/ul 04/11/2016 Cbc With Differential Ord2 [place] ABS# 0.7 K/ul 04/11/2016 Cbc With Differential Ord2 Eos ABS# 0.2 K/ul 04/11/2016 Cbc With Differential Ord2 Baso ABS# 0.0 K/ul 04/11/2016 Comp Metabolic Dnn654 NA 136 mEq/L 02/26/2016 Comp Metabolic Hiq598 K 3.9 mEq/L 02/26/2016 Comp Metabolic Ief583 CL 95 mEq/L 02/26/2016 Comp Metabolic Isb191 CO2 29.0 mEq/L 02/26/2016 Comp Metabolic Ava401 ANION GAP 16 02/26/2016 Comp Metabolic Fos773 GLUCOSE 277 mg/dL 02/26/2016 Comp Metabolic Cze098 Creat 0.7 mg/dL 02/26/2016 Comp Metabolic Grr097 eGFR 88 ml/min/1.73m2 02/26/2016 Comp Metabolic Dcs831 BUN 11 mg/dL 02/26/2016 Comp Metabolic Axr724 B/C Ratio 15.5 Ratio 02/26/2016 Comp Metabolic Lrq037 CALCIUM 8.8 mg/dL 02/26/2016 Comp Metabolic Lrh639 ALK PHOS 119 U/L 02/26/2016 Comp Metabolic Vse961 AST(SGOT) 25 U/L 02/26/2016 Comp Metabolic Ycw304 ALT(SGPT) 20 U/L 02/26/2016 Comp Metabolic Qnn507 BILI T 0.3 mg/dL 02/26/2016 Comp Metabolic Akb475 ALBUMIN 3.8 g/dL 02/26/2016 Comp Metabolic Kqq380 TPRO 6.6 g/dL 02/26/2016 Comp Metabolic Fuh187 GLOB 2.8 g/dL 02/26/2016 Comp Metabolic Suo444 A/G Ratio 1.3 Ratio 02/26/2016 Comp Metabolic Zds757 Osmo 281 mOsmo 02/26/2016 Cbc With Differential Ord2 WBC 12.43 K/ul 02/26/2016 Cbc With Differential Ord2 RBC 4.06 M/ul 02/26/2016 Cbc With Differential Ord2 HGB 12.0 g/dl 02/26/2016 Cbc With Differential Ord2 Neut% 69.4 % 02/26/2016 Cbc With Differential Ord2 HCT 38.4 % 02/26/2016 Cbc With Differential Ord2 Lymph% 22.4 % 02/26/2016 Cbc With Differential Ord2 MCV 94.6 fl 02/26/2016 Cbc With Differential Ord2 MCH 29.6 pg 02/26/2016 Cbc With Differential Ord2 [place]% 6.4 % 02/26/2016 Cbc With Differential Ord2 MCHC 31.3 pg 02/26/2016 Cbc With Differential Ord2 Eos% 1.4 % 02/26/2016 Cbc With Differential Ord2 PLT 371 K/ul 02/26/2016 Cbc With Differential Ord2 Baso% 0.4 % 02/26/2016 Cbc With Differential Ord2 Neut ABS# 8.63 K/ul 02/26/2016 Cbc With Differential Ord2 RDW 15.1 % 02/26/2016 Cbc With Differential Ord2 Lymph ABS# 2.78 K/ul 02/26/2016 Cbc With Differential Ord2 [place] ABS# 0.8 K/ul 02/26/2016 Cbc With Differential Ord2 Eos ABS# 0.2 K/ul 02/26/2016 Cbc With Differential Ord2 Baso ABS# 0.1 K/ul 02/26/2016 %Hba1C Lvw057 % HbA1c 95879-8 9.6 % 02/26/2016 %Hba1C Lac328 Gluc Ave 229 mg/dL 02/26/2016 Comp Metabolic Lwl977 NA 138 mEq/L 11/10/2015 Comp Metabolic Wxe011 K 4.5 mEq/L 11/10/2015 Comp Metabolic Rxe954 CL 99 mEq/L 11/10/2015 Comp Metabolic Boe168 CO2 34.0 mEq/L 11/10/2015 Comp Metabolic Yup909 ANION GAP 10 11/10/2015 Comp Metabolic Oxp900 GLUCOSE 167 mg/dL 11/10/2015 Comp Metabolic Vzp469 Creat 0.8 mg/dL 11/10/2015 Comp Metabolic Yiz186 eGFR 78 ml/min/1.73m2 11/10/2015 Comp Metabolic Vde433 BUN 22 mg/dL 11/10/2015 Comp Metabolic Csv834 B/C Ratio 27.8 Ratio 11/10/2015 Comp Metabolic Zhb836 CALCIUM 8.5 mg/dL 11/10/2015 Comp Metabolic Fhz144 ALK PHOS 130 U/L 11/10/2015 Comp Metabolic Vdv985 AST(SGOT) 56 U/L 11/10/2015 Comp Metabolic Dsh312 ALT(SGPT) 51 U/L 11/10/2015 Comp Metabolic Tpv511 BILI T 0.5 mg/dL 11/10/2015 Comp Metabolic Nak441 ALBUMIN 3.5 g/dL 11/10/2015 Comp Metabolic Glx373 TPRO 5.8 g/dL 11/10/2015 Comp Metabolic Jzj032 GLOB 2.3 g/dL 11/10/2015 Comp Metabolic Oci297 A/G Ratio 1.5 Ratio 11/10/2015 Comp Metabolic Ozh209 Osmo 283 mOsmo 11/10/2015 Cbc With Differential [...] 93.1 fl 11/10/2015 Cbc With Differential Ord2 MCH 28.0 pg 11/10/2015 Cbc With Differential Ord2 [place]% 7.7 % 11/10/2015 Cbc With Differential Ord2 [...] 1.92 K/ul 11/10/2015 Cbc With Differential Ord2 [place] ABS# 0.9 K/ul 11/10/2015 Cbc With Differential Ord2 Eos ABS# 0.1 K/ul 11/10/2015 Cbc With Differential Ord2 Baso ABS# 0.0 K/ul 11/10/2015 Cbc With Differential Ord2 WBC 11.55 K/ul 08/11/2015 Cbc With Differential Ord2 RBC 4.76 M/ul 08/11/2015 Cbc With Differential Ord2 HGB 13.6 g/dl 08/11/2015 Cbc With Differential Ord2 HCT 45.4 % 08/11/2015 Cbc With Differential Ord2 Neut% 65.2 % 08/11/2015 Cbc With Differential Ord2 Lymph% 25.4 % 08/11/2015 Cbc With Differential Ord2 MCV 95.4 fl 08/11/2015 Cbc With Differential Ord2 [place]% 8.1 % 08/11/2015 Cbc With Differential Ord2 [...] 2.93 K/ul 08/11/2015 Cbc With Differential Ord2 [place] ABS# 0.9 K/ul 08/11/2015 Cbc With Differential Ord2 Eos ABS# 0.1 K/ul 08/11/2015 Cbc With Differential Ord2 Baso ABS# 0.0 K/ul 08/11/2015 Cbc With Differential Ord2 New Analyzer Notice Please note new ref ranges starting 06-03-2015 due to implemntation of new five part differential hematolgy analyzer. 08/11/2015 Free T4 Snm359 FREE T4 1.07 ng/dL 08/11/2015 Tsh Ord6 hTSH II 3.53 uIU/mL 08/11/2015 Comp Metabolic Dvt589 NA 142 mEq/L 08/11/2015 Comp Metabolic Mdu556 K 3.6 mEq/L 08/11/2015 Comp Metabolic Tvm665 CL 98 mEq/L 08/11/2015 Comp Metabolic Mih900 CO2 33.0 mEq/L 08/11/2015 Comp Metabolic Ttu137 ANION GAP 15 08/11/2015 Comp Metabolic Mbc618 GLUCOSE 100 mg/dL 08/11/2015 Comp Metabolic Qag662 Creat 0.9 mg/dL 08/11/2015 Comp Metabolic Hiz550 eGFR 65 ml/min/1.73m2 08/11/2015 Comp Metabolic Ybw445 BUN 15 mg/dL 08/11/2015 Comp Metabolic Jdr504 B/C Ratio 16.3 Ratio 08/11/2015 Comp Metabolic Erk904 CALCIUM 8.8 mg/dL 08/11/2015 Comp Metabolic Ela936 ALK PHOS 171 U/L 08/11/2015 Comp Metabolic Tip723 AST(SGOT) 76 U/L 08/11/2015 Comp Metabolic Tnp613 ALT(SGPT) 64 U/L 08/11/2015 Comp Metabolic Nuo939 BILI T 0.4 mg/dL 08/11/2015 Comp Metabolic Rlx047 ALBUMIN 4.2 g/dL 08/11/2015 Comp Metabolic Kru004 TPRO 6.7 g/dL 08/11/2015 Comp Metabolic Nqa155 GLOB 2.6 g/dL 08/11/2015 Comp Metabolic Yzn146 A/G Ratio 1.6 Ratio 08/11/2015 Comp Metabolic Fam997 Osmo 284 mOsmo 08/11/2015 %Hba1C Sgn798 % HbA1c 33407-5 6.7 % 08/11/2015 %Hba1C Bzs155 Gluc Ave 146 mg/dL 08/11/2015 Culture Urine [id number] URINE CULTURE SEE NOTES 07/23/2015 Culture Urine [id number] Continued Results 07/23/2015 Urine Culture Ucult Complete Growth of aerobe sent to ref lab 07/21/2015 Tsh Ord6 hTSH II 1.99 uIU/mL 04/15/2015 Free T4 Xdp518 FREE T4 0.76 ng/dL 04/15/2015 %Hba1C Fat547 % HbA1c 37846-0 6.7 % 04/14/2015 %Hba1C Kkp794 Gluc Ave 146 mg/dL 04/14/2015 Comp Metabolic Xzf972 NA 140 mEq/L 04/14/2015 Comp Metabolic Hyz206 K 4.4 mEq/L 04/14/2015 Comp Metabolic Fir897 CL 99 mEq/L 04/14/2015 Comp Metabolic Tyk653 CO2 29.0 mEq/L 04/14/2015 Comp Metabolic Lqo446 ANION GAP 16 04/14/2015 Comp Metabolic Khi282 GLUCOSE 100 mg/dL 04/14/2015 Comp Metabolic Yhk884 Creat 0.7 mg/dL 04/14/2015 Comp Metabolic Mzq581 eGFR 91 ml/min/1.73m2 04/14/2015 Comp Metabolic Vup711 BUN 13 mg/dL 04/14/2015 Comp Metabolic Mlm317 B/C Ratio 18.8 Ratio 04/14/2015 Comp Metabolic Bce693 CALCIUM 9.1 mg/dL 04/14/2015 Comp Metabolic Jqe483 ALK PHOS 138 U/L 04/14/2015 Comp Metabolic Fgv104 AST(SGOT) 22 U/L 04/14/2015 Comp Metabolic Gwj103 ALT(SGPT) 22 U/L 04/14/2015 Comp Metabolic Wjh274 BILI T 0.3 mg/dL 04/14/2015 Comp Metabolic Ujy652 ALBUMIN 4.0 g/dL 04/14/2015 Comp Metabolic Hsv848 TPRO 6.5 g/dL 04/14/2015 Comp Metabolic Cwf063 GLOB 2.5 g/dL 04/14/2015 Comp Metabolic Hki570 A/G Ratio 1.6 Ratio 04/14/2015 Comp Metabolic Ztv273 Osmo 280 mOsmo 04/14/2015 Cbc With Differential [...] Ord2 RDW 16.5 % 04/14/2015 CHEM 14 1387639 AST 15 U/L 09/11/2013 CHEM 14 2894965 ALT 25 IU/L 09/11/2013 CHEM 14 5858420 BUN 29 MG/DL 09/11/2013 CHEM 14 8418102 ALBUMIN 3.8 GM/DL 09/11/2013 CHEM 14 4080625 CHLORIDE 99 MMOL/L 09/11/2013 CHEM 14 2825380 BILI TOT 0.2 MG/DL 09/11/2013 CHEM 14 6958969 ALK PHOS 118 U/L 09/11/2013 CHEM 14 8613427 SODIUM 136 MMOL/L 09/11/2013 CHEM 14 2012405 CREATININE 1.26 MG/DL 09/11/2013 CHEM 14 5790223 CALCIUM 9.0 MG/DL 09/11/2013 CHEM 14 2446935 POTASSIUM 5.0 MMOL/L 09/11/2013 CHEM 14 3791633 PROT TOT 6.2 GM/DL 09/11/2013 CHEM 14 8553423 GLUCOSE 254 MG/DL 09/11/2013 CHEM 14 3699021 BICARB 29 MMOL/L 09/11/2013 CHEM 14 0646059 ANION GAP 8 MEQ/L 09/11/2013 GFR CALC 5384047 GFR AA 52.0L ML/MIN 09/11/2013 GFR CALC 2523480 GFR NON-AA 43.0L ML/MIN 09/11/2013 FREE T4 4683611 FREE T4 1.35 NG/DL 08/02/2013 CBC 3937034 WBC 7.5 10e9/L 08/01/2013 CBC 8960437 RBC 3.88 10e12/L 08/01/2013 CBC 2804820 HGB 12.1 g/dL 08/01/2013 CBC 8266172 HCT DET 37.6 % 08/01/2013 CBC 2618105 MCV 96.9 fL 08/01/2013 CBC 6288691 MCH 31.2 pg 08/01/2013 CBC 5204758 MCHC 32.2 g/dL 08/01/2013 CBC 3244216 PLT 289 10e9/L 08/01/2013 CBC 4459464 MPV 9.6 fL 08/01/2013 CBC 4170118 JOSEFINA % 56.0 % 08/01/2013 CBC 4658883 LY % 31.6 % 08/01/2013 CBC 6852765 MON % 10.0 % 08/01/2013 CBC 2651692 EOS % 1.7 % 08/01/2013 CBC 9947986 BASO % 0.7 % 08/01/2013 CBC 9409641 RDW 15.5 % 08/01/2013 CBC 5814019 ABS JOSEFINA 4.20 10e9/L 08/01/2013 CBC 4599845 ABS LYMPH 2.37 10e9/L 08/01/2013 CBC 2569078 ABS MONO 0.75 10e9/L 08/01/2013 CBC 2409447 ABS EOS 0.13 10e9/L 08/01/2013 CBC 3833937 ABS BASO 0.05 10e9/L 08/01/2013 CBC 7484922 RDW-SD 53.5 fL 08/01/2013 TSH 2450309 TSH 6.497 uIU/ML 08/01/2013 CHEM 14 7689051 AST 53 U/L 08/01/2013 CHEM 14 8050672 ALT 36 IU/L 08/01/2013 CHEM 14 6376397 BUN 16 MG/DL 08/01/2013 CHEM 14 7948897 ALBUMIN 4.2 GM/DL 08/01/2013 CHEM 14 4384973 CHLORIDE 103 MMOL/L 08/01/2013 CHEM 14 9706746 BILI TOT 0.4 MG/DL 08/01/2013 CHEM 14 2341652 ALK PHOS 113 U/L 08/01/2013 CHEM 14 3649356 SODIUM 139 MMOL/L 08/01/2013 CHEM 14 9036205 CREATININE 0.83 MG/DL 08/01/2013 CHEM 14 8667692 CALCIUM 9.5 MG/DL 08/01/2013 CHEM 14 9203201 POTASSIUM 4.2 MMOL/L 08/01/2013 CHEM 14 6269339 PROT TOT 6.4 GM/DL 08/01/2013 CHEM 14 1677297 GLUCOSE 135 MG/DL 08/01/2013 CHEM 14 6082259 BICARB 26 MMOL/L 08/01/2013 CHEM 14 6990102 ANION GAP 10 MEQ/L 08/01/2013 A1C HPLC 1106022 A1C HPLC 14858-6 8.1 % 08/01/2013 GFR CALC 6135178 GFR AA >60 ML/MIN 08/01/2013 GFR CALC 0319582 GFR NON-AA >60 ML/MIN 08/01/2013 CBC 6021778 WBC 10.4 10e9/L 03/21/2013 CBC 5514251 RBC 4.27 10e12/L 03/21/2013 CBC 3985994 HGB 13.1 g/dL 03/21/2013 CBC 9264856 HCT DET 41.2 % 03/21/2013 CBC 8640785 MCV 96.5 fL 03/21/2013 CBC 1023811 MCH 30.7 pg 03/21/2013 CBC 0861383 MCHC 31.8 g/dL 03/21/2013 CBC 5513113 PLT 398 10e9/L 03/21/2013 CBC 2619958 MPV 10.9 fL 03/21/2013 CBC 9494058 JOSEFINA % 65.4 % 03/21/2013 CBC 1335160 LY % 25.6 % 03/21/2013 CBC 2885797 MON % 6.7 % 03/21/2013 CBC 4396166 EOS % 1.9 % 03/21/2013 CBC 7475596 BASO % 0.4 % 03/21/2013 CBC 2128510 RDW 14.2 % 03/21/2013 CBC 8144331 ABS JOSEFINA 6.80 10e9/L 03/21/2013 CBC 5264862 ABS LYMPH 2.66 10e9/L 03/21/2013 CBC 9522791 ABS MONO 0.70 10e9/L 03/21/2013 CBC 1746153 ABS EOS 0.20 10e9/L 03/21/2013 CBC 2374735 ABS BASO 0.04 10e9/L 03/21/2013 CBC 5544116 RDW-SD 48.7 fL 03/21/2013 CHEM 14 4997695 AST 22 U/L 03/21/2013 CHEM 14 2590624 ALT 22 IU/L 03/21/2013 CHEM 14 1918717 BUN 29 MG/DL 03/21/2013 CHEM 14 8208518 ALBUMIN 4.1 GM/DL 03/21/2013 CHEM 14 5292984 CHLORIDE 99 MMOL/L 03/21/2013 CHEM 14 8040904 BILI TOT 0.3 MG/DL 03/21/2013 CHEM 14 2486543 ALK PHOS 123 U/L 03/21/2013 CHEM 14 1880805 SODIUM 137 MMOL/L 03/21/2013 CHEM 14 4617750 CREATININE 1.16 MG/DL 03/21/2013 CHEM 14 9442301 CALCIUM 9.1 MG/DL 03/21/2013 CHEM 14 7979110 POTASSIUM 4.1 MMOL/L 03/21/2013 CHEM 14 0434438 PROT TOT 6.7 GM/DL 03/21/2013 CHEM 14 8114662 GLUCOSE 209 MG/DL 03/21/2013 CHEM 14 3850496 BICARB 26 MMOL/L 03/21/2013 CHEM 14 4080407 ANION GAP 12 MEQ/L 03/21/2013 GFR CALC 8784660 GFR AA 57.0L ML/MIN 03/21/2013 GFR CALC 3040519 GFR NON-AA 47.0L ML/MIN 03/21/2013 A1C HPLC 1910985 A1C HPLC 14819-7 6.6 % 03/21/2013 GFR CALC 6559968 GFR AA >60 ML/MIN 01/17/2013 GFR CALC 5035754 GFR NON-AA 51.0L ML/MIN 01/17/2013 CHEM 14 8023255 AST 18 U/L 01/17/2013 CHEM 14 0317194 ALT 32 IU/L 01/17/2013 CHEM 14 6883067 BUN 22 MG/DL 01/17/2013 CHEM 14 9495719 ALBUMIN 4.1 GM/DL 01/17/2013 CHEM 14 0748793 CHLORIDE 99 MMOL/L 01/17/2013 CHEM 14 1014096 BILI TOT 0.3 MG/DL 01/17/2013 CHEM 14 7498285 ALK PHOS 110 U/L 01/17/2013 CHEM 14 8320658 SODIUM 138 MMOL/L 01/17/2013 CHEM 14 6107066 CREATININE 1.09 MG/DL 01/17/2013 CHEM 14 2484270 CALCIUM 8.8 MG/DL 01/17/2013 CHEM 14 4671037 POTASSIUM 3.5 MMOL/L 01/17/2013 CHEM 14 1370913 PROT TOT 6.1 GM/DL 01/17/2013 CHEM 14 4849891 GLUCOSE 163 MG/DL 01/17/2013 CHEM 14 7036831 BICARB 29 MMOL/L 01/17/2013 CHEM 14 1339011 ANION GAP 10 MEQ/L 01/17/2013 CBC 6311620 WBC 8.0 10e9/L 01/17/2013 CBC 6284178 RBC 3.85 10e12/L 01/17/2013 CBC 7338563 HGB 12.6 g/dL 01/17/2013 CBC 2976263 HCT DET 38.0 % 01/17/2013 CBC 7118876 MCV 98.7 fL 01/17/2013 CBC 0590123 MCH 32.7 pg 01/17/2013 CBC 1589377 MCHC 33.2 g/dL 01/17/2013 CBC 1747244 PLT 325 10e9/L 01/17/2013 CBC 9405026 MPV 10.4 fL 01/17/2013 CBC 7862505 JOSEFINA % 64.6 % 01/17/2013 CBC 9784879 LY % 27.0 % 01/17/2013 CBC 9599910 MON % 6.8 % 01/17/2013 CBC 5815118 EOS % 1.4 % 01/17/2013 CBC 1239114 BASO % 0.2 % 01/17/2013 CBC 8252269 RDW 15.5 % 01/17/2013 CBC 3852067 ABS JOSEFINA 5.17 10e9/L 01/17/2013 CBC 9785814 ABS LYMPH 2.16 10e9/L 01/17/2013 CBC 6961280 ABS MONO 0.54 10e9/L 01/17/2013 CBC 8405856 ABS EOS 0.11 10e9/L 01/17/2013 CBC 7879111 ABS BASO 0.02 10e9/L 01/17/2013 CBC 7495637 RDW-SD 54.3 fL 01/17/2013 TSH 8377415 TSH 3.683 uIU/ML 12/31/2012 FREE T4 7531179 FREE T4 1.34 NG/DL 12/31/2012 A1C HPLC 6158337 A1C HPLC 71620-0 6.6 % 12/21/2012 CHEM 14 1041489 AST 16 U/L 12/20/2012 CHEM 14 9581459 ALT 36 IU/L 12/20/2012 CHEM 14 6819363 BUN 26 MG/DL 12/20/2012 CHEM 14 3243515 ALBUMIN 4.2 GM/DL 12/20/2012 CHEM 14 7306073 CHLORIDE 103 MMOL/L 12/20/2012 CHEM 14 2327015 BILI TOT 0.4 MG/DL 12/20/2012 CHEM 14 7553457 ALK PHOS 107 U/L 12/20/2012 CHEM 14 6834875 SODIUM 141 MMOL/L 12/20/2012 CHEM 14 5093608 CREATININE 0.73 MG/DL 12/20/2012 CHEM 14 3200601 CALCIUM 9.2 MG/DL 12/20/2012 CHEM 14 6165514 POTASSIUM 4.3 MMOL/L 12/20/2012 CHEM 14 8949445 PROT TOT 6.2 GM/DL 12/20/2012 CHEM 14 1241790 GLUCOSE 135 MG/DL 12/20/2012 CHEM 14 2094962 BICARB 32 MMOL/L 12/20/2012 CHEM 14 7318433 ANION GAP 6 MEQ/L 12/20/2012 GFR CALC 2159065 GFR AA >60 ML/MIN 12/20/2012 GFR CALC 1861807 GFR NON-AA >60 ML/MIN 12/20/2012 CBC 8920985 WBC 8.4 10e9/L 12/20/2012 CBC 0974916 RBC 4.30 10e12/L 12/20/2012 CBC 5249983 HGB 13.9 g/dL 12/20/2012 CBC 8005078 HCT DET 41.8 % 12/20/2012 CBC 4398365 MCV 97.2 fL 12/20/2012 CBC 2224525 MCH 32.3 pg 12/20/2012 CBC 7345263 MCHC 33.3 g/dL 12/20/2012 CBC 6000522 PLT 358 10e9/L 12/20/2012 CBC 6399277 MPV 10.2 fL 12/20/2012 CBC 9761202 JOSEFINA % 63.3 % 12/20/2012 CBC 1326139 LY % 28.9 % 12/20/2012 CBC 1578623 MON % 6.3 % 12/20/2012 CBC 2363990 EOS % 1.1 % 12/20/2012 CBC 8517319 BASO % 0.4 % 12/20/2012 CBC 6686291 RDW 15.3 % 12/20/2012 CBC 7232032 ABS JOSEFINA 5.32 10e9/L 12/20/2012 CBC 1583886 ABS LYMPH 2.43 10e9/L 12/20/2012 CBC 9363780 ABS MONO 0.53 10e9/L 12/20/2012 CBC 5836030 ABS EOS 0.09 10e9/L 12/20/2012 CBC 5972399 ABS BASO 0.03 10e9/L 12/20/2012 CBC 1288744 RDW-SD 51.9 fL 12/20/2012 GFR CALC 5229270 GFR AA >60 ML/MIN 02/01/2012 GFR CALC 4239332 GFR NON-AA >60 ML/MIN 02/01/2012 CBC 5460210 WBC 10.8 10e9/L 02/01/2012 CBC 6750193 RBC 3.86 10e12/L 02/01/2012 CBC 8578430 HGB 11.8 g/dL 02/01/2012 CBC 2952700 HCT DET 36.3 % 02/01/2012 CBC 3322210 MCV 94.0 fL 02/01/2012 CBC 6897648 MCH 30.6 pg 02/01/2012 CBC 4276546 MCHC 32.5 g/dL 02/01/2012 CBC 5467544 PLT 321 10e9/L 02/01/2012 CBC 0479160 MPV 10.3 fL 02/01/2012 CBC 4679324 JOSEFINA % 75.9 % 02/01/2012 CBC 9900146 LY % 16.1 % 02/01/2012 CBC 4889258 MON % 6.8 % 02/01/2012 CBC 0624327 EOS % 1.0 % 02/01/2012 CBC 0028247 BASO % 0.2 % 02/01/2012 CBC 8784243 RDW 14.2 % 02/01/2012 CBC 6817779 ABS JOSEFINA 8.20 10e9/L 02/01/2012 CBC 5310842 ABS LYMPH 1.74 10e9/L 02/01/2012 CBC 7778312 ABS MONO 0.73 10e9/L 02/01/2012 CBC 6474399 ABS EOS 0.11 10e9/L 02/01/2012 CBC 3070001 ABS BASO 0.02 10e9/L 02/01/2012 CBC 7375437 RDW-SD 47.2 fL 02/01/2012 BRAIN PEP 0249136 BRAIN PEP FOOTNOTE pg/mL 02/01/2012 CHEM 14 1057758 AST 26 U/L 02/01/2012 CHEM 14 9327163 ALT 36 IU/L 02/01/2012 CHEM 14 8484843 BUN 29 MG/DL 02/01/2012 CHEM 14 5896536 ALBUMIN 3.7 GM/DL 02/01/2012 CHEM 14 3047602 CHLORIDE 105 MMOL/L 02/01/2012 CHEM 14 6762979 BILI TOT 0.2 MG/DL 02/01/2012 CHEM 14 4778114 ALK PHOS 89 U/L 02/01/2012 CHEM 14 7974300 SODIUM 141 MMOL/L 02/01/2012 CHEM 14 6605265 CREATININE 0.76 MG/DL 02/01/2012 CHEM 14 0721431 CALCIUM 9.0 MG/DL 02/01/2012 CHEM 14 5021681 POTASSIUM 4.8 MMOL/L 02/01/2012 CHEM 14 0303614 PROT TOT 5.5 GM/DL 02/01/2012 CHEM 14 9216256 GLUCOSE 83 MG/DL 02/01/2012 CHEM 14 2669652 BICARB 31 MMOL/L 02/01/2012 CHEM 14 0149526 ANION GAP 5 MEQ/L 02/01/2012 GFR CALC 5938126 GFR AA >60 ML/MIN 11/30/2011 GFR CALC 7323781 GFR NON-AA >60 ML/MIN 11/30/2011 CHEM 14 2118916 AST 14 U/L 11/30/2011 CHEM 14 8415275 ALT 17 IU/L 11/30/2011 CHEM 14 7375653 BUN 12 MG/DL 11/30/2011 CHEM 14 0534100 ALBUMIN 4.3 GM/DL 11/30/2011 CHEM 14 4976949 CHLORIDE 104 MMOL/L 11/30/2011 CHEM 14 6478751 BILI TOT 0.3 MG/DL 11/30/2011 CHEM 14 7076578 ALK PHOS 83 U/L 11/30/2011 CHEM 14 5230661 SODIUM 143 MMOL/L 11/30/2011 CHEM 14 3733496 CREATININE 0.71 MG/DL 11/30/2011 CHEM 14 2783571 CALCIUM 9.7 MG/DL 11/30/2011 CHEM 14 1341344 POTASSIUM 4.4 MMOL/L 11/30/2011 CHEM 14 1449143 PROT TOT 6.3 GM/DL 11/30/2011 CHEM 14 2952076 GLUCOSE 107 MG/DL 11/30/2011 CHEM 14 5024320 BICARB 27 MMOL/L 11/30/2011 CHEM 14 1048025 ANION GAP 12 MEQ/L 11/30/2011 CBC 2155895 WBC 8.7 10e9/L 11/30/2011 CBC 1121081 RBC 4.40 10e12/L 11/30/2011 CBC 5371008 HGB 13.6 g/dL 11/30/2011 CBC 7032182 HCT DET 41.0 % 11/30/2011 CBC 7741802 MCV 93.2 fL 11/30/2011 CBC 0273763 MCH 30.9 pg 11/30/2011 CBC 0649097 MCHC 33.2 g/dL 11/30/2011 CBC 0258147 PLT 328 10e9/L 11/30/2011 CBC 1780925 MPV 10.7 fL 11/30/2011 CBC 0304608 JOSEFINA % 68.4 % 11/30/2011 CBC 2371471 LY % 22.4 % 11/30/2011 CBC 9635252 MON % 7.9 % 11/30/2011 CBC 1433386 EOS % 1.1 % 11/30/2011 CBC 5267352 BASO % 0.2 % 11/30/2011 CBC 3798566 RDW 13.5 % 11/30/2011 CBC 4678322 ABS JOSEFINA 5.95 10e9/L 11/30/2011 CBC 1491898 ABS LYMPH 1.95 10e9/L 11/30/2011 CBC 2689068 ABS MONO 0.69 10e9/L 11/30/2011 CBC 3908850 ABS EOS 0.10 10e9/L 11/30/2011 CBC 2255246 ABS BASO 0.02 10e9/L 11/30/2011 CBC 6711117 RDW-SD 45.0 fL 11/30/2011 URINALYSIS NONAUTO W/O SCOPE 37039 Specific [place] 1.030 DateTime(Free Text in Aprima) URINALYSIS NONAUTO W/O SCOPE 44992 PH 5 DateTime(Free Text in Aprima) URINALYSIS NONAUTO W/O SCOPE 19954 GLUCOSE neg DateTime( Free Text in Aprima) URINALYSIS NONAUTO W/O SCOPE 91782 Protein neg DateTime( Free Text in Aprima) URINALYSIS NONAUTO W/O SCOPE 19682 Blood neg DateTime(Free Text in Aprima) URINALYSIS NONAUTO W/O SCOPE 14164 Bilirubin neg DateTime(Free Text in Aprima) URINALYSIS NONAUTO W/O SCOPE 04758 Ketones neg DateTime( Free Text in Aprima) URINALYSIS NONAUTO W/O SCOPE 71610 Urobilinogen neg DateTime(Free Text in Aprima) URINALYSIS NONAUTO W/O SCOPE 92869 Nitrite neg DateTime( Free Text in Aprima) URINALYSIS NONAUTO W/O SCOPE 20005 Leukocytes neg DateTime(Free Text in Aprima) UA 75005 Specific [place] 1.010 DateTime(Free Text in Aprima ) UA 32810 PH 5 DateTime(Free Text in Aprima) UA 51874 GLUCOSE N DateTime(Free Text in Aprima) UA 79886 Protein N DateTime(Free Text in Aprima) UA 48991 Blood TRACE DateTime(Free Text in Aprima) UA 27157 Bilirubin N DateTime(Free Text in Aprima) UA 24081 Ketones N DateTime(Free Text in Aprima) UA 21393 Urobilinogen N DateTime(Free Text in Aprima) UA 56798 Nitrite N DateTime(Free Text in Aprima) UA 77530 Leukocytes N DateTime(Free Text in Aprima) URINALYSIS NONAUTO W/O SCOPE 16605 Specific [place] 1.010 DateTime(Free Text in Aprima) URINALYSIS NONAUTO W/O SCOPE 79688 PH 7.5 DateTime(Free Text in Aprima) URINALYSIS NONAUTO W/O SCOPE 02232 GLUCOSE DateTime( Free Text in Aprima) URINALYSIS NONAUTO W/O SCOPE 34542 Protein trace DateTime(Free Text in Aprima) URINALYSIS NONAUTO W/O SCOPE 86429 Blood DateTime(Free Text in Aprima) URINALYSIS NONAUTO W/O SCOPE 65181 Bilirubin DateTime( Free Text in Aprima) URINALYSIS NONAUTO W/O SCOPE 30885 Ketones DateTime( Free Text in Aprima) URINALYSIS NONAUTO W/O SCOPE 28749 Urobilinogen DateTime (Free Text in Aprima) URINALYSIS NONAUTO W/O SCOPE 75256 Nitrite DateTime( Free Text in Aprima) URINALYSIS NONAUTO W/O SCOPE 13540 Leukocytes DateTime( Free Text in Aprima) URINALYSIS NONAUTO W/O SCOPE 94100 Specific [place] 1.010 DateTime(Free Text in Aprima) URINALYSIS NONAUTO W/O SCOPE 12649 PH 6 DateTime(Free Text in Aprima) URINALYSIS NONAUTO W/O SCOPE 62590 GLUCOSE DateTime( Free Text in Aprima) URINALYSIS NONAUTO W/O SCOPE 97851 Protein DateTime( Free Text in Aprima) URINALYSIS NONAUTO W/O SCOPE 22705 Blood DateTime(Free Text in Aprima) URINALYSIS NONAUTO W/O SCOPE 61440 Bilirubin DateTime( Free Text in Aprima) URINALYSIS NONAUTO W/O SCOPE 44907 Ketones DateTime( Free Text in Aprima) URINALYSIS NONAUTO W/O SCOPE 22785 Urobilinogen DateTime (Free Text in Aprima) URINALYSIS NONAUTO W/O SCOPE 69394 Nitrite DateTime( Free Text in Aprima) URINALYSIS NONAUTO W/O SCOPE 92218 Leukocytes DateTime( Free Text in Aprima) UA 62305 Specific [place] 1.020 DateTime(Free Text in Aprima ) UA 60214 PH 6 DateTime(Free Text in Aprima) UA 72045 GLUCOSE neg DateTime(Free Text in Aprima) UA 07384 Protein neg DateTime(Free Text in Aprima) UA 02311 Blood neg DateTime(Free Text in Aprima) UA 53918 Bilirubin neg DateTime(Free Text in Aprima) UA 33862 Ketones neg DateTime(Free Text in Aprima) UA 73683 Urobilinogen neg DateTime(Free Text in Aprima) UA 11256 Nitrite neg DateTime(Free Text in Aprima) UA 43582 Leukocytes neg DateTime(Free Text in Aprima) Review of Systems System Result Effective Dates Constitutional No recent illness 2017 Constitutional No [...] developed 10/27/2017 None Full Exam - General 1995 [...] clear 02/27/2017 None Full Exam - General 1995 Ears/Nose/Throat [...] rhythm 09/06/2012 None Full Exam - General 1995 [...] General 1995 Neck inspection of neck Overall: absence of [...] Codes Date URINALYSIS NONAUTO W/O SCOPE CPT-4: 82751 12/14/2017 URINALYSIS NONAUTO W/O SCOPE CPT-4: 66170 11/27/2017 PPPS, SUBSEQ VISIT CPT -4: G0439 10/27/2017 GLUCOSE MONITORING CONT CPT-4: 38601 09/27/2017 URINALYSIS NONAUTO W/O SCOPE CPT-4: 31289 06/30/2017 URINALYSIS NONAUTO W/O SCOPE CPT-4: 73409 11/25/2016 URINALYSIS NONAUTO W/O SCOPE CPT-4: 30790 10/21/2016 URINALYSIS NONAUTO W/O SCOPE CPT-4: 03211 06/24/2016 URINALYSIS NONAUTO W/O SCOPE CPT-4: 84450 04/11/2016 ADMIN PNEUMOCOCCAL VACCINE SNOMED CT: [id number] CPT-4: G0009 02/26/2016 PNEUMOCOCCAL VACC 13 ANURADHA IM Formatting Model/CDA Sections, Assigned to/Jada Velazquez SNOMED CT: [id number] CPT-4: 46412Fpnapyz 02/26/2016 URINALYSIS NONAUTO W/O SCOPE CPT-4: 58162 02/10/2016 URINALYSIS NONAUTO W/O SCOPE CPT-4: 29077 11/27/2015 URINALYSIS NONAUTO W/O SCOPE CPT-4: 82107 11/02/2015 INITIAL PREVENTIVE EXAM CPT-4: G0402 09/29/2015 URINALYSIS NONAUTO W/O SCOPE CPT-4: 69248 07/20/2015 TRIAMCINOLONE ACET INJ NOS CPT-4: J3301 06/26/2015 URINALYSIS NONAUTO W/O SCOPE CPT-4: 86700 11/05/2014 URINALYSIS NONAUTO W/O SCOPE CPT-4: 35583 04/21/2014 CULTURE AEROBIC IDENTIFY CPT-4: 59628 12/12/2013 URINALYSIS NONAUTO W/O SCOPE CPT-4: 23299 11/18/2013 ROUTINE VENIPUNCTURE CPT-4: 26008 09/10/2013 ROUTINE VENIPUNCTURE CPT-4: 33823 08/01/2013 URINALYSIS NONAUTO W/O SCOPE CPT-4: 68235 06/28/2013 TRIAMCINOLONE ACET INJ NOS CPT-4: J3301 05/07/2013 DRAIN/INJECT JOINT/BURSA CPT-4: 36968 05/07/2013 ROUTINE VENIPUNCTURE CPT-4: 63777 03/21/2013 ROUTINE VENIPUNCTURE CPT-4: 78080 01/17/2013 URINALYSIS NONAUTO W/O SCOPE CPT-4: 82651 01/01/2013 ROUTINE VENIPUNCTURE CPT-4: 81971 12/31/2012 ROUTINE VENIPUNCTURE CPT-4: 27461 12/20/2012 URINALYSIS NONAUTO W/O SCOPE CPT-4: 91698 11/05/2012 DRAIN/INJECT JOINT/BURSA CPT-4: 09600 09/21/2012 TRIAMCINOLONE ACET INJ NOS CPT-4: J3301 09/21/2012 URINALYSIS NONAUTO W/O SCOPE CPT-4: 65380 07/19/2012 TRIAMCINOLONE ACET INJ NOS CPT-4: J3301 07/06/2012 Pneumococcal Polysaccharide Vaccine, 23-Valent, Ad CPT-4: 71801 06/07/2012 IMMUNIZATION ADMIN CPT -4: 67865 06/07/2012 TRIAMCINOLONE ACET INJ NOS CPT-4: J3301 05/02/2012 ROUTINE VENIPUNCTURE CPT-4: 69242 02/01/2012 URINALYSIS NONAUTO W/O SCOPE CPT-4: 40512 02/01/2012 TRIAMCINOLONE ACET INJ NOS CPT-4: J3301 12/14/2011 INJ TRIGGER POINT 1/2 MUSCL CPT-4: 60904 12/14/2011 PROMETHAZINE HCL INJECTION CPT-4: J2550 11/30/2011 ROUTINE VENIPUNCTURE CPT-4: 18542 11/30/2011 TRIAMCINOLONE ACET INJ NOS CPT-4: J3301 08/01/2011 DRAIN/INJECT JOINT/BURSA CPT-4: 91697 08/01/2011 THER/PROPH/DIAG INJ SC/IM CPT-4: 21248 04/18/2011 TRIAMCINOLONE ACET INJ NOS CPT-4: J3301 04/18/2011 Vital Signs Date Vital 11/27/2017 Blood Pressure 1: 158/78 Code : 8480-6 BMI: 40.8 Code : 03482-2 Heart Rate 1 : 100 bpm Height: 5'2" SpO2: 95% Weight: 223 lbs 10/27/2017 Blood Pressure 1: 146/70 Code : 8480-6 BMI: 41.3 Code : 90463-4 Heart Rate 1 : 82 bpm Height: 5'2" SpO2: 99% Waist Measure (cm): 119 cm Weight: 226 lbs 09/15/2017 Blood Pressure 1: 136/66 Code : 8480-6 BMI: 41.5 Code : 18196-1 Heart Rate 1 : 94 bpm Height: 5'2" SpO2: 96% Weight: 227 lbs 08/18/2017 Blood Pressure 1: 120/68 Code : 8480-6 BMI: 41.5 Code : 38744-3 Heart Rate 1 : 87 bpm Height: 5'2" SpO2: 94% Weight: 227 lbs 08/03/2017 Blood Pressure 1: 132/72 Code : 8480-6 BMI: 41.5 Code : 86036-1 Heart Rate 1 : 93 bpm Height: 5'2" SpO2: 95% Weight: 227 lbs 07/27/2017 Blood Pressure 1: 128/84 Code : 8480-6 BMI: 41.5 Code : 52051-8 Heart Rate 1 : 91 bpm Height: 5'2" SpO2: 98% Weight: 227 lbs 06/13/2017 Blood Pressure 1: 136/84 Code : 8480-6 BMI: 42.6 Code : 43822-1 Heart Rate 1 : 91 bpm Height: 5'2" SpO2: 94% Weight: 233 lbs 04/21/2017 Blood Pressure 1: 142/84 Code : 8480-6 BMI: 42.8 Code : 49153-8 Heart Rate 1 : 89 bpm Height: 5'2" SpO2: 94% Weight: 234 lbs 04/18/2017 Blood Pressure 1: 140/86 Code : 8480-6 BMI: 42.8 Code : 17501-5 Heart Rate 1 : 89 bpm Height: 5'2" SpO2: 97% Weight: 234 lbs 03/27/2017 Blood Pressure 1: 148/76 Code : 8480-6 BMI: 42.6 Code : 72113-3 Heart Rate 1 : 92 bpm Height: [...] Code : 8480-6 BMI: 44.3 Code : 31465-6 Heart Rate 1 : 90 bpm Height: 5'2" SpO2: 96% Weight: 242 lbs 01/30/2017 Blood Pressure 1: 132/72 Code : 8480-6 Heart Rate 1: 97 bpm Height: 5'2" SpO2: 96% Weight: 01/16/2017 Blood Pressure 1: 138/76 Code : 8480-6 BMI: 43.3 Code : 63941-3 Heart Rate 1 : 84 bpm Height: 5'2" SpO2: 99% Weight: 237 lbs 12/13/2016 Blood Pressure 1: 144/78 Code : 8480-6 Heart Rate 1: 96 bpm Height: 5'2" SpO2: 98% Temperature: 36.6 (C) / 97.9 (F) Weight: 11/11/2016 Blood Pressure 1: 144/80 Code : 8480-6 BMI: 43.0 Code : 13920-0 Heart Rate 1 : 89 bpm Height: 5'2" SpO2: 94% Temperature: 36.1 (C) / 97.0 (F) Weight: 235 lbs 10/28/2016 Blood Pressure 1: 156/82 Code : 8480-6 BMI: 43.9 Code : 54433-0 Heart Rate 1 : 78 bpm Height: [...] Code : 8480-6 BMI: 42.4 Code : 33906-6 Heart Rate 1 : 95 bpm Height: 5'2" SpO2: 98% Weight: 232 lbs 08/09/2016 Blood Pressure 1: 138/80 Code : 8480-6 BMI: 41.0 Code : 98691-0 Heart Rate 1 : 98 bpm Height: 5'2" SpO2: 97% Weight: 224 lbs 07/26/2016 Blood Pressure 1: 148/82 Code : 8480-6 BMI: 42.4 Code : 43149-1 Heart Rate 1 : 89 bpm Height: 5'2" SpO2: 97% Weight: 232 lbs 05/24/2016 Blood Pressure 1: 146/72 Code : 8480-6 BMI: 42.4 Code : 03164-6 Heart Rate 1 : 89 bpm Height: 5'2" SpO2: 99% Weight: 232 lbs 04/19/2016 Blood Pressure 1: 130/88 Code : 8480-6 BMI: 42.4 Code : 73324-5 Heart Rate 1 : 88 bpm Height: 5'2" SpO2: 98% Weight: 232 lbs 04/11/2016 Blood Pressure 1: 140/80 Code : 8480-6 BMI: 41.7 Code : 08659-5 Heart Rate 1 : 97 bpm Height: 5'2" SpO2: 95% Weight: 228 lbs 03/21/2016 Blood Pressure 1: 138/80 Code : 8480-6 BMI: 44.4 Code : 40632-1 Height: 5'2" Weight: 243 lbs 03/11/2016 Blood Pressure 1: 138/82 Code : 8480-6 BMI: 44.4 Code : 76905-7 Heart Rate 1 : 86 bpm Height: 5'2" SpO2: 95% Weight: 243 lbs 02/26/2016 Blood Pressure 1: 130/82 Code : 8480-6 BMI: 43.9 Code : 01383-6 Heart Rate 1 : 86 bpm Height: 5'2" SpO2: 97% Weight: 240 lbs 02/02/2016 Blood Pressure 1: 136/86 Code : 8480-6 Heart Rate 1: 56 bpm Height: SpO2: 96% Weight: 12/17/2015 Blood Pressure 1: 140/80 Code : 8480-6 BMI: 40.2 Code : 07823-6 Heart Rate 1 : 100 bpm Height: 5'2" SpO2: 99% Weight: 220 lbs 12/08/2015 Blood Pressure 1: 132/86 Code : 8480-6 Heart Rate 1: 100 bpm Height: SpO2: 97% Weight: 11/27/2015 Blood Pressure 1: 128/82 Code : 8480-6 BMI: 39.3 Code : 68063-1 Heart Rate 1 : 112 bpm Height: 5'2" SpO2: 96% Weight: 215 lbs 11/12/2015 Blood Pressure 1: 168/88 Code : 8480-6 Heart Rate 1: 106 bpm Height: 5'2" SpO2: 96% Weight: 11/10/2015 Blood Pressure 1: 156/80 Code : 8480-6 Heart Rate 1: 94 bpm Height: 5'2" SpO2: 96% Weight: 10/27/2015 Blood Pressure 1: 142/76 Code : 8480-6 BMI: 40.8 Code : 77406-4 Heart Rate 1 : 86 bpm Height: 5'2" SpO2: 97% Weight: 223 lbs 09/29/2015 Blood Pressure 1: 132/88 Code : 8480-6 BMI: 41.7 Code : 41345-3 Heart Rate 1 : 104 bpm Height: 5'2" SpO2: 94% Weight: 228 lbs 09/22/2015 Blood Pressure 1: 130/80 Code : 8480-6 BMI: 41.7 Code : 50660-5 Heart Rate 1 : 89 bpm Height: 5'2" SpO2: 97% Weight: 228 lbs 09/01/2015 Blood Pressure 1: 138/88 Code : 8480-6 BMI: 40.6 Code : 44602-9 Heart Rate 1 : 95 bpm Height: 5'2" SpO2: 95% Weight: 222 lbs 08/10/2015 Blood Pressure 1: 140/82 Code : 8480-6 BMI: 41.0 Code : 24923-1 Heart Rate 1 : 84 bpm Height: 5'2" SpO2: 97% Weight: 224 lbs 06/26/2015 Blood Pressure 1: 152/72 Code : 8480-6 BMI: 41.2 Code : 40322-8 Heart Rate 1 : 92 bpm Height: 5'2" SpO2: 96% Weight: 225 lbs 04/14/2015 Blood Pressure 1: 158/86 Code : 8480-6 BMI: 41.2 Code : 50313-0 Heart Rate 1 : 63 bpm Height: 5'2" SpO2: 93% Weight: 225 lbs 03/03/2015 Blood Pressure 1: 152/80 Code : 8480-6 BMI: 40.1 Code : 45882-9 Heart Rate 1 : 101 bpm Height: 5'2" SpO2: 97% Weight: 219 lbs 01/15/2015 Blood Pressure 1: 127/76 Code : 8480-6 BMI: 40.6 Code : 83152-1 Heart Rate 1 : 109 bpm Height: 5'2" SpO2: 97% Weight: 222 lbs 01/01/2015 Blood Pressure 1: 136/64 Code : 8480-6 BMI: 40.4 Code : 87010-6 Heart Rate 1 : 94 bpm Height: 5'2" SpO2: 96% Weight: 221 lbs 12/25/2014 Blood Pressure 1: 146/80 Code : 8480-6 Heart Rate 1: 95 bpm Height: 5'2" SpO2: 94% 11/04/2014 Blood Pressure 1: 110/70 Code : 8480-6 BMI: 40.2 Code : 27310-4 Heart Rate 1 : 878 bpm Height: 5'2" SpO2: 97% Weight: 220 lbs 09/08/2014 Blood Pressure 1: 142/78 Code : 8480-6 BMI: 39.5 Code : 15678-3 Heart Rate 1 : 97 bpm Height: 5'2" SpO2: 98% Weight: 216 lbs 08/29/2014 Blood Pressure 1: 140/90 Code : 8480-6 Blood Pressure 2: 120/70 Code: 8480-6 BMI: 40.2 Code: 74423-2 Heart Rate 1: 88 bpm Height: 5'2" Weight: 220 lbs 06/30/2014 Blood Pressure 1: 132/74 Code : 8480-6 BMI: 39.1 Code : 10543-8 Heart Rate 1 : 76 bpm Height: 5'2" Weight: 214 lbs 06/12/2014 Blood Pressure 1: 118/76 Code : 8480-6 BMI: 40.4 Code : 05389-5 Heart Rate 1 : 86 bpm Height: 5'2" SpO2: 96% Weight: 221 lbs 05/26/2014 Blood Pressure 1: 128/78 Code : 8480-6 BMI: 39.5 Code : 38329-0 Heart Rate 1 : 76 bpm Height: 5'2" Weight: 216 lbs 04/15/2014 Blood Pressure 1: 144/72 Code : 8480-6 BMI: 40.8 Code : 49939-2 Heart Rate 1 : 60 bpm Height: 5'2" Weight: 223 lbs 03/25/2014 Blood Pressure 1: 118/72 Code : 8480-6 BMI: 41.2 Code : 48244-1 Heart Rate 1 : 80 bpm Height: 5'2" Weight: 225 lbs 03/03/2014 Blood Pressure 1: 138/86 Code : 8480-6 BMI: 41.5 Code : 75517-2 Heart Rate 1 : 104 bpm Height: 5'2" Temperature: 36.1 (C) / 97.0 (F) Weight: 227 lbs 02/13/2014 Blood Pressure 1: 142/88 Code : 8480-6 BMI: 40.8 Code : 81302-3 Heart Rate 1 : 88 bpm Height: 5'2" Weight: 223 lbs 01/27/2014 Blood Pressure 1: 124/68 Code : 8480-6 BMI: 39.9 Code : 92314-1 Heart Rate 1 : 89 bpm Height: 5'2" SpO2: 94% Weight: 218 lbs 12/26/2013 Blood Pressure 1: 108/52 Code : 8480-6 BMI: 41.2 Code : 11669-4 Heart Rate 1 : 96 bpm Height: 5'2" Weight: 225 lbs 12/12/2013 Blood Pressure 1: 158/88 Code : 8480-6 BMI: 42.6 Code : 13767-4 Heart Rate 1 : 80 bpm Height: 5'2" Weight: 233 lbs 11/14/2013 Blood Pressure 1: 120/60 Code : 8480-6 BMI: 42.4 Code : 01437-7 Heart Rate 1 : 96 bpm Height: 5'2" Temperature: 5423.3 (C ) / 9794.0 (F) Weight: 232 lbs 10/21/2013 Blood Pressure 1: 100/60 Code : 8480-6 BMI: 41.9 Code : 79107-7 Heart Rate 1 : 96 bpm Height: 5'2" Weight: 229 lbs 10/03/2013 Blood Pressure 1: 122/72 Code : 8480-6 BMI: 42.3 Code : 70544-3 Heart Rate 1 : 84 bpm Height: 5'2" Weight: 231 lbs 09/27/2013 Blood Pressure 1: 112/58 Code : 8480-6 Heart Rate 1: 72 bpm SpO2: 93% Temperature: 36.2 (C) / 97.1 (F) Weight: 09/23/2013 Blood Pressure 1: 108/76 Code : 8480-6 BMI: 42.4 Code : 78561-6 Heart Rate 1 : 95 bpm Height: 5'2" SpO2: 96% Weight: 232 lbs 09/20/2013 Blood Pressure 1: 150/88 Code : 8480-6 BMI: 42.4 Code : 35813-7 Heart Rate 1 : 104 bpm Height: 5'2" Weight: 232 lbs 09/10/2013 Blood Pressure 1: 112/62 Code : 8480-6 Heart Rate 1: 88 bpm Weight: 238 lbs 08/19/2013 Blood Pressure 1: 102/58 Code : 8480-6 BMI: 43.7 Code : 49370-2 Heart Rate 1 : 80 bpm Height: 5'2" Weight: 239 lbs 08/12/2013 Blood Pressure 1: 110/60 Code : 8480-6 BMI: 43.3 Code : 68747-1 Heart Rate 1 : 90 bpm Height: 5'2" SpO2: 96% Weight: 236 lbs 8 oz 08/01/2013 Blood Pressure 1: 128/72 Code : 8480-6 BMI: 42.6 Code : 88795-4 Heart Rate 1 : 78 bpm Height: 5'2" SpO2: 97% Weight: 233 lbs 07/19/2013 Blood Pressure 1: 100/60 Code : 8480-6 BMI: 44.3 Code : 19644-0 Heart Rate 1 : 92 bpm Height: 5'2" Temperature: 36.2 (C) / 97.2 (F) Weight: 242 lbs 07/15/2013 Blood Pressure 1: 180/92 Code : 8480-6 Heart Rate 1: 115 bpm SpO2: 98% Weight: 06/27/2013 Blood Pressure 1: 114/64 Code : 8480-6 BMI: 44.1 Code : 84125-9 Heart Rate 1 : 114 bpm Height: 5'2" SpO2: 93% Weight: 241 lbs 06/10/2013 Blood Pressure 1: 174/86 Code : 8480-6 BMI: 44.1 Code : 82572-5 Heart Rate 1 : 132 bpm Height: 5'2" SpO2: 94% Temperature: 35.6 (C) / 96.0 (F) Weight: 241 lbs 05/07/2013 Blood Pressure 1: 160/88 Code : 8480-6 BMI: 43.5 Code : 29451-7 Heart Rate 1 : 108 bpm Height: 5'2" SpO2: 96% Weight: 238 lbs 04/16/2013 Blood Pressure 1: 116/62 Code : 8480-6 BMI: 44.6 Code : 15750-7 Heart Rate 1 : 90 bpm Height: 5'2" SpO2: 94% Weight: 244 lbs 03/21/2013 Blood Pressure 1: 102/64 Code : 8480-6 BMI: 42.8 Code : 38945-6 Height: 5'2" Weight: 234 lbs 02/12/2013 Blood Pressure 1: 130/78 Code : 8480-6 BMI: 42.0 Code : 77258-4 Heart Rate 1 : 100 bpm Height: 5'2" Weight: 229 lbs 8 oz 02/04/2013 Blood Pressure 1: 126/68 Code : 8480-6 BMI: 44.3 Code : 50545-8 Heart Rate 1 : 88 bpm Height: 5'2" Weight: 242 lbs 01/17/2013 Blood Pressure 1: 132/76 Code : 8480-6 Heart Rate 1: 121 bpm SpO2: 97% Weight: 242 lbs 12/31/2012 Blood Pressure 1: 144/90 Code : 8480-6 BMI: 43.0 Code : 81478-7 Heart Rate 1 : 96 bpm Height: 5'2" Temperature: 36.2 (C) / 97.2 (F) Weight: 235 lbs 12/20/2012 Blood Pressure 1: 156/96 Code : 8480-6 BMI: 42.4 Code : 77147-4 Heart Rate 1 : 96 bpm Height: [...] Code : 8480-6 BMI: 38.8 Code : 94613-6 Heart Rate 1 : 96 bpm Height: 5'2" Temperature: 36.3 (C) / 97.3 (F) Weight: 212 lbs 08/23/2012 Blood Pressure 1: 116/72 Code : 8480-6 BMI: 38.3 Code : 19682-0 Heart Rate 1 : 92 bpm Height: 5'2" Weight: 209 lbs 8 oz 08/13/2012 Blood Pressure 1: 140/92 Code : 8480-6 BMI: 37.3 Code : 33452-4 Heart Rate 1 : 104 bpm Height: 5'2" Weight: 204 lbs 08/07/2012 Blood Pressure 1: 148/98 Code : 8480-6 BMI: 36.6 Code : 57904-8 Heart Rate 1 : 102 bpm Height: [...] Code : 8480-6 BMI: 35.3 Code : 00338-1 Heart Rate 1 : 105 bpm Height: [...] Result Effective Date Notes diabetes mellitus Quality worsening 11/27/2017 None diabetes [...] december - she was seen by her vp analytics again in mid 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 She states that she saw her vp analytics and was to be started on another [...] differently. States she did eat BBQ from [employer] yesterday for lunch. hypertension Quality [...] data Encounters Encounter Performer Location Codes Date ([id number]) 53243 EST. PATIENT, LEVEL III Diagnosis: Dysuria[ICD10: R30.0] Diagnosis: Essential (primary) hypertension[ICD10: I10] Rika Motta MD, [facility] [place] CPT-4: 60249 11/27/2017 ([id number] 77812 EST. PATIENT, LEVEL III Diagnosis: Type 2 diabetes mellitus with hyperglycemia[ICD10: E11.65] Diagnosis: Chronic pain syndrome[ICD10: G89.4] Rika Motta MD, [facility] [place] CPT-4: 22906 09/15/2017 ([id number] 66826 EST. 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 PATIENT, LEVEL III Diagnosis: Chronic maxillary sinusitis[ICD10: J32.0] Diagnosis: Type 2 diabetes mellitus with hyperglycemia[ICD10: E11.65] Diagnosis: Hordeolum externum left upper eyelid[ICD10: H00.014] [facility] CPT-4: 37079 08/03/2017 ([id number]) 74704 EST. PATIENT, LEVEL IV Diagnosis: Type 2 diabetes mellitus with hyperglycemia[ICD10: E11.65] Diagnosis: Hordeolum externum left upper eyelid[ICD10: H00.014] Diagnosis: Essential (primary) hypertension[ICD10: I10] Diagnosis: Chronic obstructive pulmonary disease, unspecified[ICD10: J44.9] Rika Motta MD, [facility] [place] CPT-4: 15884 07/27/2017 ([id number]) 99558 EST. PATIENT, LEVEL IV Diagnosis: Type 2 diabetes mellitus with hyperglycemia[ICD10: E11.65] Diagnosis: Essential (primary) hypertension[ICD10: I10] Tessie Motta MD, [facility] [place] CPT-4: 77586 06/13/2017 10057 EST. PATIENT, LEVEL IV Diagnosis: Periapical abscess without sinus[ICD10: K04.7] Arlette Motta MD, [facility] [place] CPT-4: 79799 04/21/2017 ([id number]) 93672 EST. PATIENT, LEVEL IV Diagnosis: Type 2 diabetes mellitus with hyperglycemia[ICD10: E11.65] Diagnosis: Cellulitis of abdominal wall[ICD10: L03.311] Diagnosis: Chronic pain syndrome[ICD10: G89.4] Diagnosis: Essential (primary) hypertension[ICD10: I10] Diagnosis: Unsteadiness on feet[ICD10: R26.81] Rika Motta MD, [facility] [place] CPT-4: 08502 04/18/2017 ([id number]) 00415 EST. PATIENT, LEVEL IV Diagnosis: Type 2 diabetes mellitus with hyperglycemia[ICD10: E11.65] Diagnosis: Hypokalemia[ICD10: E87.6] Diagnosis: Essential (primary) hypertension[ICD10: I10] Diagnosis: Paroxysmal atrial fibrillation[ICD10: I48.0] Rika Motta MD, [facility] [place] CPT-4: 58203 03/27/2017 ([id number]) 15474 EST. PATIENT, LEVEL IV Diagnosis: Essential (primary) hypertension[ICD10: I10] Diagnosis: Type 2 diabetes mellitus with hyperglycemia[ICD10: E11.65] Diagnosis: Hypokalemia[ICD10: E87.6] Diagnosis: Generalized abdominal pain[ICD10: R10.84] Rika Motta MD, [facility] [place] CPT-4: 61171 02/27/2017 ([id number]) 63363 EST. PATIENT, LEVEL III Diagnosis: Drug induced constipation[ICD10: K59.03] Rika Motta MD, [facility] [place] CPT-4: 55822 02/21/2017 ([id number]) 76881 EST. PATIENT, LEVEL IV Diagnosis: Generalized abdominal pain[ICD10: R10.84] Diagnosis: Hypokalemia[ICD10: E87.6] Diagnosis: Hypomagnesemia[ICD10: E83.42] Rika Motta MD, [facility] [place] CPT-4: 11477 02/17/2017 ([id number]) 27536 EST. PATIENT, LEVEL IV Diagnosis: Paroxysmal atrial fibrillation[ICD10: I48.0] Diagnosis: Essential (primary) hypertension[ICD10: I10] Diagnosis: Chronic obstructive pulmonary disease, unspecified[ICD10: J44.9] Diagnosis: Type 2 diabetes mellitus with hyperglycemia[ICD10: E11.65] Diagnosis: Diarrhea, unspecified[ICD10: R19.7] Rika Motta MD, [facility] [place] CPT-4: 58626 02/13/2017 ([id number]) 38360 EST. PATIENT, LEVEL IV Diagnosis: Type 2 diabetes mellitus with hyperglycemia[ICD10: E11.65] Diagnosis: Pain in right shoulder[ICD10: M25.511] Diagnosis: Chronic maxillary sinusitis[ICD10: J32.0] Rika Motta MD, [facility] [place] CPT-4: 70333 01/30/2017 ([id number]) 51134 EST. PATIENT, LEVEL IV Diagnosis: Essential (primary) hypertension[ICD10: I10] Diagnosis: Type 2 diabetes mellitus with hyperglycemia[ICD10: E11.65] Diagnosis: Hypothyroidism, unspecified[ICD10: E03.9] Diagnosis: Generalized anxiety disorder[ICD10: F41.1] Diagnosis: Chronic pain syndrome[ICD10: G89.4] Diagnosis: Restless legs syndrome[ICD10: G25.81] Diagnosis: Obstructive sleep apnea (adult) (pediatric)[ICD10: G47.33] Rika Motta MD, [facility] [place] CPT-4: 40899 01/16/2017 20949 EST. PATIENT, LEVEL IV Diagnosis: Other acute sinusitis[ICD10: J01.80] Diagnosis: Diplopia[ICD10: H53.2] Arlette Motta MD, [facility] [place] CPT-4: 44021 12/13/2016 ([id number]) 49740 EST. PATIENT, LEVEL IV Diagnosis: Essential (primary) hypertension[ICD10: I10] Diagnosis: Fasciculation[ICD10: R25.3] Diagnosis: Generalized anxiety disorder[ICD10: F41.1] Diagnosis: Other obesity due to excess calories[ICD10: E66.09] Diagnosis: Zoster without complications[ICD10: B02.9] Diagnosis: Unilateral primary osteoarthritis, right knee[ICD10: M17.11] Diagnosis: Unsteadiness on feet[ICD10: R26.81] Rika Motta MD, [facility] [place] CPT-4: 27061 11/11/2016 ([id number]) 72556 EST. PATIENT, LEVEL IV Diagnosis: Zoster without complications[ICD10: B02.9] Diagnosis: Type 2 diabetes mellitus with hyperglycemia[ICD10: E11.65] Diagnosis: Vomiting, unspecified[ICD10: R11.10] Rika Motta MD, [facility] [place] CPT-4: 19380 10/28/2016 ([id number]) 44126 EST. PATIENT, LEVEL III Diagnosis: Pain in right knee[ICD10: M25.561] Diagnosis: Zoster without complications[ICD10: B02.9] Rika Motta MD, [facility] [place] CPT-4: 15163 10/13/2016 ([id number]) 59894 EST. PATIENT, LEVEL IV Diagnosis: Acute recurrent maxillary sinusitis[ICD10: J01.01] Diagnosis: Low back pain[ICD10: M54.5] Diagnosis: Pain in right knee[ICD10: M25.561] Diagnosis: Allergic rhinitis due to pollen[ICD10: J30.1] Rika Motta MD, [facility] [place] CPT-4: 12865 09/23/2016 ([id number]) 28376 EST. PATIENT, LEVEL IV Diagnosis: Pain in right shoulder[ICD10: M25.511] Diagnosis: Type 2 diabetes mellitus with hyperglycemia[ICD10: E11.65] Diagnosis: Cervicalgia[ICD10: M54.2] Diagnosis: Candidiasis of skin and nail[ICD10: B37.2] Diagnosis: Low back pain[ICD10: M54.5] Rika Motta MD, [facility] [place] CPT-4: 02096 09/13/2016 ([id number]) 68162 EST. 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 PATIENT, LEVEL IV Diagnosis: Type 2 diabetes mellitus with hyperglycemia[ICD10: E11.65] Diagnosis: Candidiasis of skin and nail[ICD10: B37.2] Diagnosis: Chronic obstructive pulmonary disease, unspecified[ICD10: J44.9] Diagnosis: Paroxysmal atrial fibrillation[ICD10: I48.0] Diagnosis: Pneumonia, unspecified organism[ICD10: J18.9] Rika Motta MD, [facility] [place] CPT-4: 39757 07/26/2016 ([id number]) 28604 EST. PATIENT, LEVEL IV Diagnosis: Type 2 diabetes mellitus with hyperglycemia[ICD10: E11.65] Diagnosis: Generalized anxiety disorder[ICD10: F41.1] Diagnosis: Essential (primary) hypertension[ICD10: I10] Diagnosis: Chronic pain syndrome[ICD10: G89.4] Rika Motta MD, [facility] [place] CPT-4: 07459 05/24/2016 ([id number]) 49846 EST. PATIENT, LEVEL IV Diagnosis: Menopausal and female climacteric states[ICD10: N95.1] Diagnosis: Type 2 diabetes mellitus with hyperglycemia[ICD10: E11.65] Diagnosis: Generalized anxiety disorder[ICD10: F41.1] Rika Motta MD, [facility] [place] CPT-4: 49405 04/19/2016 ([id number]) 38418 EST. PATIENT, LEVEL IV Diagnosis: Type 2 diabetes mellitus with hyperglycemia[ICD10: E11.65] Diagnosis: Generalized anxiety disorder[ICD10: F41.1] Diagnosis: Essential (primary) hypertension[ICD10: I10] Diagnosis: Dysuria[ICD10: R30.0] Rika Motta MD, [facility] [place] CPT-4: 31859 04/11/[id number]) 61111 EST. PATIENT, LEVEL IV Diagnosis: Generalized anxiety disorder[ICD10: F41.1] Diagnosis: Major depressive disorder, single episode, mild[ICD10: F32.0] Diagnosis: Hypothyroidism, unspecified[ICD10: E03.9] Diagnosis: Type 2 diabetes mellitus with hyperglycemia[ICD10: E11.65] Rika Motta MD, [facility] [place] CPT-4: 09919 03/21/2016 [id number]) 99458 EST. PATIENT, LEVEL IV Diagnosis: Type 2 diabetes mellitus with hyperglycemia[ICD10: E11.65] Diagnosis: Cellulitis of right lower limb[ICD10: L03.115] Diagnosis: Other elevated white blood cell count[ICD10: D72.828] Diagnosis: Localized edema[ICD10: R60.0] Rika Motta MD, [facility] [place] CPT-4: 43926 03/11/2016 [id number]) 40170 EST. PATIENT, LEVEL IV Diagnosis: Type 2 diabetes mellitus with hyperglycemia[ICD10: E11.65] Diagnosis: Localized edema[ICD10: R60.0] Diagnosis: Other conjunctivitis[ICD10: H10.89] Diagnosis: Obstructive sleep apnea (adult) (pediatric)[ICD10: G47.33] Diagnosis: Unspecified asthma, uncomplicated[ICD10: J45.909] Diagnosis: VAC STREP PNEUMONIAE-FLU[ICD10: Z23] Rika Motta MD, [facility] [place] CPT-4: 20517 02/26/2016 [id number]) 15890 EST. PATIENT, LEVEL IV Diagnosis: Essential (primary) hypertension[ICD10: I10] Diagnosis: Paroxysmal atrial fibrillation[ICD10: I48.0] Diagnosis: Type 2 diabetes mellitus with hyperglycemia[ICD10: E11.65] Diagnosis: Obstructive sleep apnea (adult) (pediatric)[ICD10: G47.33] Diagnosis: Chronic obstructive pulmonary disease, unspecified[ICD10: J44.9] Rika Motta MD, [facility] [place] CPT-4: 33343 02/02/2016 ([id number]) 55166 EST. 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 PATIENT, LEVEL IV Diagnosis: Type 2 diabetes mellitus with hyperglycemia[ICD10: E11.65] Diagnosis: Generalized anxiety disorder[ICD10: F41.1] Diagnosis: Essential (primary) hypertension[ICD10: I10] Diagnosis: Restless legs syndrome[ICD10: G25.81] Diagnosis: Dysuria[ICD10: R30.0] Rika Motta MD, [facility] [place] CPT-4: 20590 11/27/2015 17787 EST. PATIENT, LEVEL IV Diagnosis: Addisonian crisis[ICD10: E27.2] Arlette Motta MD, [facility] [place] CPT-4 : 75004 11/12/2015 03175 EST. PATIENT, LEVEL IV Diagnosis: Acute bronchitis due to other specified organisms[ICD10: J20.8] Diagnosis: Other acute sinusitis[ICD10: J01.80] Diagnosis: Other malaise[ICD10: R53.81] Diagnosis: Cough[ICD10: R05] Arlette Motta MD, [facility] [place] CPT-4: 50695 11/10/2015 87877 EST. PATIENT, LEVEL IV Diagnosis: Pain in left knee[ICD10: M25.562] Diagnosis: Cellulitis of right toe[ICD10: L03.031] Arlette Motta MD, [facility] [place] CPT-4: 21751 10/27/2015 ([id number]) 53757 EST. PATIENT, LEVEL IV Diagnosis: Essential (primary) hypertension[ICD10: I10] Diagnosis: Localized edema[ICD10: R60.0] Diagnosis: Type 2 diabetes mellitus with hyperglycemia[ICD10: E11.65] Rika Motta MD, [facility] [place] CPT-4: 34232 09/22/2015 ([id number]) 15693 EST. PATIENT, LEVEL IV Diagnosis: Essential (primary) hypertension[ICD10: I10] Diagnosis: Type 2 diabetes mellitus with hyperglycemia[ICD10: E11.65] Diagnosis: Cellulitis of right toe[ICD10: L03.031] Rika Motta MD, [facility] [place] CPT-4: 41133 09/01/2015 ([id number]) 30657 EST. PATIENT, LEVEL IV Diagnosis: Type 2 diabetes mellitus with hyperglycemia[ICD10: E11.65] Diagnosis: Essential (primary) hypertension[ICD10: I10] Diagnosis: Generalized anxiety disorder[ICD10: F41.1] Diagnosis: Hypothyroidism, unspecified[ICD10: E03.9] Diagnosis: Body mass index (BMI) 40.0-44.9, adult[ICD10: Z68.41] Rika Motta MD, [facility] [place] CPT-4: 49601 08/10/2015 [id number] EST. PATIENT, LEVEL IV Diagnosis: Acute bronchitis due to other specified organisms[ICD10: J20.8] Diagnosis: Pain in left knee[ICD10: M25.562] Diagnosis: Type 2 diabetes mellitus with hyperglycemia[ICD10: E11.65] Arlette Motta MD, [facility] [place] CPT-4: 99372 06/26/2015 ([id number]) [id number] EST. PATIENT, LEVEL IV Diagnosis: Cellulitis of right lower limb[ICD10: L03.115] Diagnosis: Type 2 diabetes mellitus with hyperglycemia[ICD10: E11.65] Diagnosis: Essential (primary) hypertension[ICD10: I10] Diagnosis: Edema, unspecified[ICD10: R60.9] Rika Motta MD, [facility] [place] CPT-4: 60384 04/14/2015 ([id number]) [id number] EST. PATIENT, LEVEL IV Diagnosis: Essential (primary) hypertension[ICD10: I10] Diagnosis: Type 2 diabetes mellitus with hyperglycemia[ICD10: E11.65] Diagnosis: Localized edema[ICD10: R60.0] Diagnosis: Dysuria[ICD10: R30.0] Rika Motta MD, [facility] CPT-4: 60918 03/03/2015 ([id number]) 44725 EST. PATIENT, LEVEL III Diagnosis: Blister of leg[ICD9: 916.2] Diagnosis: Rash[ICD9: 782.1] Diagnosis: EDEMA[ICD9: 782.3] Tessie Motta MD, [facility] CPT-4: 74150 01/15/2015 ([id number]) 52374 EST. PATIENT, LEVEL IV Diagnosis: Cellulitis, leg[ICD9: 682.6] Diagnosis: DIABETES TYPE II[ICD9: 250.00] Tessie Motta MD, [facility] CPT- 4: 50467 01/01/2015 ([id number]) Miscellaneous no charge Diagnosis: CVA (cerebral vascular accident)[ICD9: 434.91] Isabella Motta MD, [facility] CPT-4: 91101 12/25/2014 ([id number]) 81951 EST. PATIENT, LEVEL IV Diagnosis: ESSENTIAL HYPERTENSION[ICD9: 401.9] Diagnosis: DM W/O COMPLICATION TYPE II, UNCONTROLLED[ICD9: 250.02] Diagnosis: EDEMA[ICD9: 782.3] Diagnosis: Dysuria[ICD9: 788.1] Rika Motta MD, [facility] CPT-4: 25176 11/04/2014 ([id number]) 56250 EST. PATIENT, LEVEL IV Diagnosis: EDEMA[ICD9: 782.3] Diagnosis: Cellulitis of right leg[ICD9: 682.6] Diagnosis: Allergic rhinitis[ICD9: 477.9] Rika Motta MD, [facility] CPT-4: 33741 09/08/2014 ([id number]) 00189 EST. PATIENT, LEVEL IV Diagnosis: EDEMA[ICD9: 782.3] Diagnosis: ESSENTIAL HYPERTENSION[ICD9: 401.9] Diagnosis: DIABETES TYPE II[ICD9: 250.00] Diagnosis: Cellulitis of right leg[ICD9: 682.6] Rika Motta MD, [facility] CPT-4: 45763 08/29/2014 09519) 36596 EST. PATIENT, LEVEL III Diagnosis: EDEMA[ICD9: 782.3] Diagnosis: DIABETES TYPE II[ICD9: 250.00] Tessie Motta MD, [facility] CPT- 4: 15441 06/30/2014 [id number]) 73343 EST. PATIENT, LEVEL IV Diagnosis: EDEMA[ICD9: 782.3] Diagnosis: DM W/O COMPLICATION TYPE II, UNCONTROLLED[ICD9: 250.02] Diagnosis: Sciatica[ICD9: 724.3] Tessie Motta MD, [facility] CPT-4: 76807 06/12/2014 [id number]) 82625 EST. PATIENT, LEVEL III Diagnosis: Cellulitis, leg[ICD9: 682.6] Diagnosis: EDEMA[ICD9: 782.3] Rika Motta MD, [facility] CPT-4: 39645 05/26/2014 [id number]) 92935 EST. PATIENT, LEVEL IV Diagnosis: DIABETES TYPE II[ICD9: 250.00] Diagnosis: Chronic sinusitis[ICD9: 473.9] Tessie Motta MD, [facility] CPT- 4: 19808 04/15/2014 [id number]) 81634 EST. PATIENT, LEVEL IV Diagnosis: DM W/O COMPLICATION TYPE II, UNCONTROLLED[ICD9: 250.02] Diagnosis: CHRONIC SINUSITIS[ICD9: 473.9] Diagnosis: EDEMA[ICD9: 782.3] Diagnosis: Right knee pain[ICD9: 719.46] Rika Motta MD, [facility] [place] CPT-4: 79619 03/25/2014 ([id number]) 44543 EST. PATIENT, LEVEL IV Diagnosis: Blister of leg[ICD9: 916.2] Diagnosis: EDEMA[ICD9: 782.3] Diagnosis: DM W/O COMPLICATION TYPE II, UNCONTROLLED[ICD9: 250.02] Diagnosis: ESSENTIAL HYPERTENSION[ICD9: 401.9] Rika Motta MD, [facility] [place] CPT-4: 90267 03/03/2014 ([id number]) 88137 EST. PATIENT, LEVEL IV Diagnosis: CELLULITIS OF LEG[ICD9: 682.6] Diagnosis: Diabetes mellitus type 2, uncontrolled[ICD9: 250.02] Diagnosis: ESSENTIAL HYPERTENSION[ICD9: 401.9] Diagnosis: EDEMA[ICD9: 782.3] Tessie Motta MD [facility] [place] CPT-4: 33724 02/13/2014 ([id number]) 87172 EST. PATIENT, LEVEL IV Diagnosis: Diabetes mellitus type 2, uncontrolled[ICD9: 250.02] Tessie Motta MD [facility] CPT-4: 38465 01/27/2014 ([id number]) 27836 EST. PATIENT, LEVEL III Diagnosis: OPEN WND KNEE/LEG/ANKLE[ICD9: 891.0] Diagnosis: EDEMA[ICD9: 782.3] Rika Motta MD [facility] [place] CPT-4: 71025 12/26/2013 ([id number]) 97242 EST. PATIENT, LEVEL III Diagnosis: Cellulitis of right leg[ICD9: 682.6] Diagnosis: OPEN WND KNEE/LEG/ANKLE[ICD9: 891.0] Rika Motta MD [facility] [place] CPT-4: 96719 12/12/2013 ([id number]) 05526 EST. PATIENT, LEVEL IV Diagnosis: Asthma exacerbation[ICD9: 493.92] Diagnosis: COUGH[ICD9: 786.2] Diagnosis: EDEMA[ICD9: 782.3] Rika Motta MD [facility] [place] CPT-4: 79296 11/14/2013 ([id number]) 91717 EST. PATIENT, LEVEL III Diagnosis: OPEN WND KNEE/LEG/ANKLE[ICD9: 891.0] Diagnosis: EDEMA[ICD9: 782.3] Rika Motta MD [facility] [place] CPT-4: 36140 10/21/2013 ([id number]) 66709 EST. PATIENT, LEVEL IV Diagnosis: ESSENTIAL HYPERTENSION[SNOMED: 58708994] Diagnosis: Right knee pain[ICD9: 719.46] Diagnosis: OPEN WND KNEE/LEG/ANKLE[ICD9: 891.0] Rika Motta MD [facility] [place] CPT-4: 31714 10/03/2013 ([id number]) Miscellaneous no charge Diagnosis: Open wound of leg[ICD9: 891.0] Rika Motta MD, [facility] [place] CPT-4: 56611 09/27/2013 61177 EST. PATIENT, LEVEL II Diagnosis: Open wound of leg[ICD9: 891.0] Diagnosis: Wrist pain, left[ICD9: 719.43] Rika Motta MD, [facility] [place] CPT-4: 08802 09/23/2013 ([id number]) 87000 EST. PATIENT, LEVEL IV Diagnosis: CELLULITIS OF LEG[ICD9: 682.6] Diagnosis: ESSENTIAL HYPERTENSION[SNOMED: 12492317] Diagnosis: EDEMA[ICD9: 782.3] Rika Motta MD, [facility] [place] CPT-4: 91362 09/20/2013 ([id number]) 39425 EST. PATIENT, LEVEL IV Diagnosis: Open wound of right lower leg[ICD9: 891.0] Diagnosis: DM W/O COMPLICATION TYPE II, UNCONTROLLED[SNOMED: 60293953] Diagnosis: Edema[ICD9: 782.3] Rika Motta MD, [facility] [place] CPT-4: 80532 09/10/2013 ([id number]) 22318 EST. PATIENT, LEVEL III Diagnosis: DM W/O COMPLICATION TYPE II, UNCONTROLLED[SNOMED: 47810767] Diagnosis: EDEMA[ICD9: 782.3] Tessie Motta MD, [facility] [place] CPT-4: 29823 08/19/2013 ([id number]) 74957 EST. PATIENT, LEVEL IV Diagnosis: EDEMA[ICD9: 782.3] Diagnosis: DIABETES TYPE II[SNOMED: 301148689] Diagnosis: HYPOTHYROIDISM[ICD9: 244.9] Diagnosis: LUMBAGO[ICD9: 724.2] Diagnosis: SCIATICA[ICD9: 724.3] Tessie Motta MD, [facility] [place] CPT-4: 59058 08/12/2013 ([id number]) 70407 EST. PATIENT, LEVEL IV Diagnosis: DIABETES TYPE II[SNOMED: 937371043] Diagnosis: EDEMA[ICD9: 782.3] Diagnosis: HYPOTHYROIDISM[ICD9: 244.9] Diagnosis: Encounter for long-term (current) use of other medications[ICD9: V58.69] Diagnosis: LUMBAGO[ICD9: 724.2] Rika Motta MD [facility] [place] CPT-4: 97636 08/01/2013 ([id number]) 12917 EST. PATIENT, LEVEL III Diagnosis: Blister of right foot[ICD9: 917.2] Rika Motta MD [facility] [place] CPT-4: 68753 07/19/2013 ([id number]) 15146 EST. PATIENT, LEVEL III Diagnosis: Cellulitis of right leg[ICD9: 682.6] Diagnosis: ESSENTIAL HYPERTENSION[SNOMED: 25579746] Diagnosis: EDEMA[ICD9: 782.3] Rika Motta MD, [facility] [place] CPT-4: 09118 07/15/2013 ([id number]) 28828 EST. PATIENT, LEVEL IV Diagnosis: DIABETES TYPE II[SNOMED: 593693578] Diagnosis: BACKACHE[ICD9: 724.5] Diagnosis: Muscle spasms of neck[ICD9: 728.85] Tessie Motta MD, [facility] [place] CPT-4: 85151 06/27/2013 ([id number]) 72661 EST. PATIENT, LEVEL IV Diagnosis: DM W/O COMPLICATION TYPE II, UNCONTROLLED[SNOMED: 33755204] Diagnosis: EDEMA[ICD9: 782.3] Diagnosis: OBESITY[ICD9: 278.00] Diagnosis: WHEEZING[ICD9: 786.07] Tessie Motta MD, [facility] [place] CPT-4: 23804 06/10/2013 ([id number]) 24737 EST. PATIENT, LEVEL IV Diagnosis: CHRONIC SINUSITIS[ICD9: 473.9] Diagnosis: WHEEZING[ICD9: 786.07] Diagnosis: ACUTE BRONCHITIS[ICD9: 466.0] Diagnosis: Back pain[ICD9: 724.5] Tessie Motta MD, [facility] [place] CPT-4: 74210 05/07/2013 ([id number]) 76832 EST. PATIENT, LEVEL IV Diagnosis: EDEMA[ICD9: 782.3] Diagnosis: COPD (chronic obstructive pulmonary disease) with acute bronchitis[ ICD9: 491.22] Tessie Motta MD, [facility] [place] CPT-4: 94093 04/16/2013 ([id number]) 78690 EST. PATIENT, LEVEL IV Diagnosis: Lumbago[ICD9: 724.2] Diagnosis: DM W/O COMPLICATION TYPE II, UNCONTROLLED[SNOMED: 27256094] Diagnosis: EDEMA[ICD9: 782.3] Rika Motta MD [facility] [place] CPT-4: 32875 03/21/2013 ([id number]) 74035 EST. PATIENT, LEVEL IV Diagnosis: Abdominal pain[ICD9: 789.00] Diagnosis: EDEMA[ICD9: 782.3] Diagnosis: DIABETES TYPE II[SNOMED: 237392570] Tessie Motta MD, [facility] [place] CPT-4: 38116 02/12/2013 ([id number]) 13054 EST. PATIENT, LEVEL III Diagnosis: EDEMA[ICD9: 782.3] Diagnosis: RESPIRATORY ABNORM NEC[ICD9: 786.09] Tessie Motta MD [facility] [place] CPT-4: 77257 02/04/2013 ([id number]) 75297 EST. PATIENT, LEVEL IV Diagnosis: Edema[ICD9: 782.3] Diagnosis: ESSENTIAL HYPERTENSION[SNOMED: 06499443] Tessie Motta MD, [facility] [place] CPT-4: 49495 01/17/2013 ([id number]) 50769 EST. 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 PATIENT, LEVEL IV Diagnosis: Cellulitis of left leg[ICD9: 682.6] Diagnosis: DIABETES TYPE II[SNOMED: 524094600] Diagnosis: ESSENTIAL HYPERTENSION[SNOMED: 41559149] Diagnosis: EDEMA[ICD9: 782.3] Rika Motta MD, [facility] [place] CPT-4: 66709 12/20/2012 ([id number]) 62621 EST. PATIENT, LEVEL III Diagnosis: Acute bronchitis[ICD9: 466.0] Diagnosis: COUGH[ICD9: 786.2] Tessie Motta MD, [facility] [place] CPT-4: 90477 10/29/2012 ([id number]) 70013 EST. PATIENT, LEVEL IV Diagnosis: ESSENTIAL HYPERTENSION[SNOMED: 32830216] Diagnosis: DIABETES TYPE II[SNOMED: 127140930] Diagnosis: HYPOTHYROIDISM[ICD9: 244.9] Tessie Motta MD [facility] [place] CPT- 4: 21596 09/06/2012 ([id number]) 42287 EST. PATIENT, LEVEL IV Diagnosis: DIABETES TYPE II[SNOMED: 729175870] Diagnosis: ESSENTIAL HYPERTENSION[SNOMED: 91359735] Diagnosis: Diarrhea[ICD9: 787.91] Tessie Motta MD [facility] [place] CPT-4: 97254 08/23/2012 ([id number]) 86603 EST. PATIENT, LEVEL III Diagnosis: ESSENTIAL HYPERTENSION[SNOMED: 05324222] Diagnosis: Gastroenteritis[ICD9: 558.9] Rika Motta MD [facility] [place] CPT-4: 34753 08/13/2012 ([id number]) 98403 EST. PATIENT, LEVEL IV Diagnosis: Diarrhea[ICD9: 787.91] Diagnosis: ESSENTIAL HYPERTENSION[SNOMED: 42267653] Diagnosis: DM W/O COMPLICATION TYPE II, UNCONTROLLED[SNOMED: 57627980] Rika Motta MD [facility] [place] CPT-4: 29680 08/07/2012 ([id number]) 44870 EST. PATIENT, LEVEL III Diagnosis: Acute sinusitis[ICD9: 461.9] Diagnosis: Thrush[ICD9: 112.0] Rika Motta MD [facility] [place] CPT-4: 95155 07/06/2012 ([id number]) 40872 EST. PATIENT, LEVEL IV Diagnosis: ESSENTIAL HYPERTENSION[SNOMED: 15594099] Diagnosis: DIABETES TYPE II[SNOMED: 637620906] Tessie Motta MD [facility] [place] CPT-4: 93082 06/07/2012 ([id number]) 19944 EST. PATIENT, LEVEL IV Diagnosis: ESSENTIAL HYPERTENSION[SNOMED: 17590264] Diagnosis: ACUTE SINUSITIS[ICD9: 461.9] Diagnosis: Labial cyst[ICD9: 624.8] Tessie Motta MD [facility] [place] CPT-4: 67090 05/28/2012 ([id number]) 44940 EST. PATIENT, LEVEL IV Diagnosis: ESSENTIAL HYPERTENSION[SNOMED: 07730495] Diagnosis: EDEMA[ICD9: 782.3] Tessie Motta MD [facility] [place] CPT-4: 87245 05/17/2012 ([id number]) 45755 EST. PATIENT, LEVEL IV Diagnosis: EDEMA[ICD9: 782.3] Diagnosis: ESSENTIAL HYPERTENSION[SNOMED: 13057817] Diagnosis: Diarrhea[ICD9: 787.91] Diagnosis: ALLERGIC RHINITIS[ICD9: 477.9] Tessie Motta MD [facility] [place] CPT- 4: 22930 05/02/2012 ([id number]) 53054 EST. PATIENT, LEVEL IV Diagnosis: ACUTE SINUSITIS[ICD9: 461.9] Diagnosis: ESSENTIAL HYPERTENSION[SNOMED: 97320376] Diagnosis: ALLERGIC RHINITIS[ICD9: 477.9] Tessie Motta MD [facility] [place] CPT- 4: 42893 04/10/2012 ([id number]) 13920 EST. PATIENT, LEVEL IV Diagnosis: ESSENTIAL HYPERTENSION[SNOMED: 95073588] Diagnosis: Foreign body in foot or toe[ICD9: 917.6] Diagnosis: EDEMA[ICD9: 782.3] Tessie Motta MD [facility] [place] CPT-4: 35222 02/27/2012 ([id number]) 32450 EST. PATIENT, LEVEL IV Diagnosis: CELLULITIS OF FOOT[ICD9: 682.7] Diagnosis: DIABETES TYPE II[SNOMED: 127524217] Diagnosis: EDEMA[ICD9: 782.3] Tessie Motta MD [facility] [place] CPT-4: 32989 02/15/2012 ([id number]) 45371 EST. PATIENT, LEVEL IV Diagnosis: EDEMA[ICD9: 782.3] Diagnosis: ESSENTIAL HYPERTENSION[SNOMED: 25128426] Diagnosis: ACUTE SINUSITIS[ICD9: 461.9] Diagnosis: Dysuria[ICD9: 788.1] Tessie Motta MD [facility] [place] CPT-4: 11309 02/01/2012 ([id number]) 48822 EST. PATIENT, LEVEL IV Diagnosis: DIABETES TYPE II[SNOMED: 588388303] Diagnosis: Diverticulitis[ICD9: 562.11] Tessie Motta MD [facility] [place] CPT- 4: 43366 12/14/2011 ([id number]) 79690 EST. PATIENT, LEVEL IV Diagnosis: Nausea vomiting and diarrhea[ICD9: 787.01] Diagnosis: ESSENTIAL HYPERTENSION[SNOMED: 40165224] Diagnosis: DM W/O COMPLICATION TYPE II, UNCONTROLLED[SNOMED: 53995379] Tessie Motta MD [facility] [place] CPT-4: 95607 11/30/2011 ([id number]) 73935 EST. PATIENT, LEVEL IV Diagnosis: ESSENTIAL HYPERTENSION[SNOMED: 72548476] Diagnosis: DIABETES TYPE II[SNOMED: 915107249] Diagnosis: COUGH[ICD9: 786.2] Tessie Motta MD [facility] [place] CPT-4: 38306 11/17/2011 ([id number]) Patient admitted to the hospital from clinic (NO CHARGE) Diagnosis: Tachycardia[ICD9: 785.0] Diagnosis: Dyspnea[ICD9: 786.09] Diagnosis: Wheezing[ICD9: 786.07] Diagnosis: FALL AGAINST OBJECT[ICD9: E888.1] Diagnosis: ANXIETY STATE[ICD9: 300.00] Diagnosis: ESSENTIAL HYPERTENSION[SNOMED: 76043595] Diagnosis: Chronic depression[ICD9: 311] Diagnosis: Diabetes mellitus type 2, uncontrolled[SNOMED: 34954412] Tessie Motta MD, [facility] [place] CPT-4: 12601E 11/03/2011 ([id number]) 44861 EST. PATIENT, LEVEL IV Diagnosis: DIABETES TYPE II[SNOMED: 500259952] Diagnosis: ANXIETY STATE[ICD9: 300.00] Diagnosis: DEPRESSIVE DISORDER NEC[ICD9: 311] Diagnosis: Ulcer of toe[ICD9: 707.15] Tessie Motta MD [facility] [place] CPT- 4: 31191 10/24/2011 ([id number]) 20698 EST. PATIENT, LEVEL IV Diagnosis: EDEMA[ICD9: 782.3] Diagnosis: ESSENTIAL HYPERTENSION[SNOMED: 99095659] Diagnosis: ANXIETY STATE[ICD9: 300.00] Tessie Motta MD [facility] [place] CPT- 4: 78739 09/26/2011 45241 EST. PATIENT, LEVEL IV Diagnosis: EDEMA[ICD9: 782.3] Diagnosis: ESSENTIAL HYPERTENSION[SNOMED: 64616906] Rika Motta MD, [facility] [place] CPT-4: 57339 09/20/2011 ([id number]) 81957 EST. PATIENT, LEVEL IV Diagnosis: ACUTE SINUSITIS[ICD9: 461.9] Diagnosis: Allergic rhinitis[ICD9: 477.9] Diagnosis: Cough[ICD9: 786.2] Tessie Motta MD, [facility] [place] CPT-4: 96136 09/01/2011 ([id number]) 91496 EST. PATIENT, LEVEL IV Diagnosis: Chronic sinusitis[ICD9: 473.9] Diagnosis: Anxiety, generalized[ICD9: 300.02] Tessie Motta MD, [facility] [place] CPT-4: 42605 08/15/2011 95949 EST. PATIENT, LEVEL IV Diagnosis: ACUTE SINUSITIS[ICD9: 461.9] Diagnosis: Tachycardia[ICD9: 785.0] Diagnosis: Anxiety[ICD9: 300.00] Diagnosis: Dehydration[ICD9: 276.51] Diagnosis: Sciatica[ICD9: 724.3] Tessie Motta MD, [facility] [place] CPT-4: 63451 08/09/2011 25224 EST. PATIENT, LEVEL IV Diagnosis: DIABETES TYPE II[SNOMED: 503077142] Diagnosis: Sciatica[ICD9: 724.3] Diagnosis: Yeast infection[ICD9: 112.9] Tessie Motta MD, [facility] [place] CPT- 4: 01029 08/01/2011 ([id number]) 54009 EST. PATIENT, LEVEL IV Diagnosis: DIABETES TYPE II[SNOMED: 418805324] Diagnosis: ACUTE MAXILLARY SINUSITIS[ICD9: 461.0] Diagnosis: Fibromyalgia[ICD9: 729.1] Tessie Motta MD, [facility] [place] CPT-4: 16989 06/20/2011 86416 EST. PATIENT, LEVEL IV Diagnosis: ESSENTIAL HYPERTENSION[SNOMED: 80424132] Diagnosis: DIABETES TYPE II[SNOMED: 472341900] Diagnosis: ACUTE MAXILLARY SINUSITIS[ICD9: 461.0] Tessie Motta MD, [facility] [place] CPT-4: 41016 04/18/2011 Plan of Care Planned Activity Notes Codes Status Date Visit Plan: UA negative -no culture indicated 12/14/2017 Appointment: Lab Draw 12/14/2017 Patient Education: Patient Medication Summary Completed 12/14/2017 Visit Plan: Dysuria-urinary incontinence-culture urine HTN- elevated today-monitor at home -follow up with tobacco blender 11/27/2017 Appointment: Rika Bello WPtel: [phone] [phone] [place] (15 min) Moderate 11/27/2017 Patient [...] Completed 10/27/2017 Care Plan: SCREENINGMAMMOGRAPHYDIGITAL LOINC : 75849-6 Pending 10/27/2017 Appointment: Arlette Skelton WPtel: [phone] [facility] [place] (15 min) Moderate 10/03/2017 Appointment: Arlette Skelton WPtel: [phone] [facility] [place] (15 min) Moderate 10/02/2017 Appointment: [phone] [place] (30 min) Complex 09/29/2017 Visit Plan: [...] acutely worsened. 09/27/2017 Appointment: Arlette Skelton WPtel: [facility] (30 min) Complex 09/27/2017 Patient Education: Patient Medication Summary Completed 09/27/2017 Care Plan: CT HEAD/BRAIN W/O DYE LOINC : 75557-4 Pending 09/27/2017 Visit Plan: DM-patient noncompliant with [...] over- medication. 09/15/2017 Appointment: Rika Bello WPtel: [phone] [phone] (30 min) Complex 09/15/2017 Patient Education: Patient Medication Summary Completed 09/15/2017 Appointment: Rika Bello WPtel: [phone] [phone] (30 min) Complex 09/12/2017 Appointment: Rika Bello WPtel: [phone] [phone] (30 min) Complex 09/07/2017 Visit Plan: Ngf-bqzofxkhuh-om changes Anemia-check cbc today Dental infection-on clindamycin per Dr Bryant-start probiotics Also needs to monitor blood sugars closely 08/18/2017 Appointment: Rika Bello WPtel: [phone] [phone] (30 min) Complex 08/18/2017 Patient Education: [...] not resolve 08/03/2017 Appointment: [facility]ello [facility]: [phone] (30 min) Complex 08/03/2017 Patient Education: Patient [...] symptoms worsen 07/27/2017 Appointment: Rika Bello WPtel: [address] [place], [place] [phone] (30 min) [facility] 07/27/2017 Patient Education: Patient Medication Summary Completed [...] 06/13/2017 Appointment: Tessie Motta WPtel: [phone] [facility] (15 min) Moderate 06/13/2017 Patient Education: Patient Medication Summary Completed 06/13/2017 Visit Plan: Dental abscess - will send RX - pt is to keep her appointment with her dentist - pt is to notify clinic if symptoms do not improve, if they worsen, or with any other acute changes, questions, or concerns. 04/21/2017 Appointment: [facility] Skelton [phone] (30 min) Complex 04/21/2017 Patient Education: Patient [...] Q HS RESCHEDULE APPT WITH DR YANNA HoJjagdtojg-jkpidyuxn-nj for bactroban ointment provided and instructed on use CXC-pizizrrcqd-sv change in medications Mildly elevated liver enzymes-discussed with Dr motta-suspect due to gabapentin-will monitor levels Gait instability-again recommend patient use walker as well as PT 04/18/2017 Appointment: [facility]ello [phone] [place] (30 min) Complex 04/18/2017 Patient Education: [...] become less controlled. Low potassium- check labs WIB-xnburftylo-zw changes Afib-check digoxin level with labs Abdominal [...] become less controlled. Low potassium- check labs LSO-gjblznogua-qm changes Afib-check digoxin level with labs Abdominal pain-refill levsin for prn use -call if pain uncontrolled 03/27/2017 Appointment: Rika Bello WPtel: [address] [place], [place] [phone] [place] [address] (30 min) Complex 03/27/2017 Patient Education: Patient Medication Summary Completed 03/27/2017 Appointment: Rika Bello WPtel: [address] [place], [place] [phone] (30 min) Complex 03/24/2017 Visit Plan: Hypertension - well controlled - continue with current medications, continue with no added salt diet. Pt has been encouraged to exercise daily. The pt has been advised to call the office if there are any acute concerns about change in blood pressure readings at home. DM-uncontrolled- discussed strict diet and exercise with patient Low fkkueanph-gqxfyabu-ugudpcyg to monitor Abd gtvu-thryceuz-my changes 02/27/2017 Appointment: Rika Bello WPtel: [phone] (30 min) Complex 02/27/2017 Patient Education: [...] regimen. 02/21/2017 Appointment: Rika Bello WPtel: [phone] [place] (30 min) Complex 02/21/2017 Patient Education: Patient Medication Summary Completed 02/21/2017 Appointment: Rika Bello WPtel: [phone] (30 min) Complex 02/20/2017 Visit Plan: Generalized [...] labs on Monday02/17/2017 Appointment: Rika Bello WPtel: [facility] [address] (30 min) Complex 02/17/2017 Patient Education: Patient Medication Summary Completed 02/17/2017 Visit Plan: COPD-recent hospitalization with pneumonia- symptoms improved-discussed continuous oxygen use at home-appt with Dr Odonnell tomorrow Afib-check digoxin level-patient just finished zpack Diarrhea-continue probiotics-check stool if diarrhea persists DM-bring log to next appt 02/13/2017 Appointment: Rika Bello WPtel: [phone] [phone] [place] (30 min) Complex 02/13/2017 Patient Education: Patient Medication Summary Completed 02/13/2017 Patient Education: Hypertension Completed 02/13/2017 Visit Plan: DM-very uncontrolled-refer to Dr Raines for management RIght shoulder and arm pain-fell 5 days ago-xray shoulder and arm Chronic sinusitis-RX for Dr Cervantes's compound gentamicin nasal spray 01/30/2017 Appointment: Rika Bello WPtel: [phone] (30 min) Complex 01/30/2017 Patient Education: Patient Medication Summary Completed 01/30/2017 Care Plan: Referral Order SNOMED-CT : 900609293 Pending 01/30/2017 Visit Plan: Hypertension - well [...] every night DM-check Hgb A1C Hypothyroidism-check level Lkywdwq-npxguscmtq-pmc well controlled- increase cymbalta-recommend counseling 01/16/2017 Appointment: Rika Bello WPtel: [address] [place], [place] [phone] (30 min) Complex 01/16/2017 Patient Education: Patient Medication Summary Completed 01/16/2017 Appointment: Rika Bello WPtel: [address] [place], [place] [phone] (30 min) Complex 01/10/2017 Visit Plan: Sinusitis [...] or concerns. 12/13/2016 Appointment: Arlette Skelton WPtel: [facility] [place] (30 min) Complex 12/13/2016 Patient Education: Patient [...] completely heal. 11/11/2016 Appointment: Rika Bello WPtel: [phone] (30 min) Complex 11/11/2016 Patient Education: Patient Medication Summary Completed 11/11/2016 Care Plan: BMI Above normal followup SELF-MGMT EDUC & TRAIN 1 PT Pending 2016 Appointment: Rika Bello WPtel: [address] [place], [place] [phone] (30 min) Complex 11/08/2016 Visit Plan: Shingles-rash scabbed-no further treatment indicated-patient to call if pain uncontrolled N/V-check labs including UA DM- check labs today Thrush-RX for nystatin 10/28/2016 Appointment: Rika Bello WPtel: [address] [place], [place] [phone] (30 min) Complex 10/28/2016 Patient Education: Patient Medication Summary Completed 10/28/2016 Patient Education: Obesity Completed 10/28/2016 Appointment: Rika Bello WPtel: [address] [place], [place] [phone] (30 min) Complex 10/25/2016 Appointment: Lab Draw 10/21/2016 Patient Education: Patient Medication Summary Completed 10/21/2016 Visit Plan: Right knee pain-patient to schedule appt with Dr Allison Garcia-right arm-concerned for shingles-RX for acyclovir provided and instructed on use-call if symptoms do not resolve or if any worse. 10/13/2016 Appointment: Rika Bello WPtel: [address] [place], [place] [phone] (30 min) Complex 10/13/2016 Patient Education: Patient Medication Summary Completed 10/13/2016 Appointment: Rika Bello WPtel: [address] [place], [place] [phone] (30 min) Complex 10/11/2016 Appointment: Rika Bello WPtel: [address] [place], [place] [phone] [facility] - Annual Wellness Visit 10/04/2016 [...] as directed. 09/23/2016 Appointment: Rika Bello WPtel: [facility] [place] [phone] (15 min) Moderate 09/23/2016 Patient Education: Patient [...] 09/13/2016 Care Plan: Referral Order SNOMED-CT : 360722256 Pending 09/13/2016 Appointment: Rika Bello WPtel: [address] [place], [place] [phone] (30 min) Complex 09/09/2016 Appointment: Rika Bello WPtel: [phone] (30 min) Complex 09/08/2016 Visit Plan: Hypertension - well controlled - continue with current medications, continue with no added salt diet. Pt has been encouraged to exercise daily. The pt has been advised to call the office if there are any acute concerns about change in blood pressure readings at home. Yeast infection -improved-continue nystatin powder Hypothyroidism-check labs Anemia-check CBC 08/09/2016 Appointment: BelloGutierrezie [facility]el[phone] (30 min) Complex 08/09/2016 Patient Education: Patient [...] control. Yeast infection -rx for nystatin powder GOWZ-zkvpgotyi-eoqfqh pneumonia -afib-patient is oxygen dependent due to [...] control. Yeast infection -rx for nystatin powder UWMN-ccqspprnn-tacamf pneumonia -afib-patient is oxygen dependent due to [...] control. Yeast infection -rx for nystatin powder GZHQ-uhrojaloy-htmcoz pneumonia -afib-patient is oxygen dependent due to severely compromised pulmonary and cardiac systems-will send orders to [facility] to continue oxygen 07/26/2016 Appointment: Rika Bello WPtel: [address] [phone] [place] (30 min) Complex 07/26/2016 Patient Education: Patient Medication Summary Completed 07/26/2016 Appointment: Rika Bello WPtel: [address] [phone] [place] (30 min) Complex 07/22/2016 Appointment: Rika Bello WPtel: 101[address] [phone] [place] (30 min) Complex 07/18/2016 Appointment: Rika Bello WPtel: 101[address] [phone] [place] (30 min) Complex 07/01/2016 Appointment: Lab Draw 06/24/2016 Patient Education: Patient Medication Summary Completed 06/24/2016 Appointment: Rika Bello WPtel: 1015 [phone] [place] (30 min) Complex 2016 Visit Plan: [...] Obesity Completed 05/24/2016 Appointment: Rika Bello WPtel: [phone] (30 min) Complex 05/17/2016 Visit Plan: [...] glucose control. 04/19/2016 Appointment: Rika Bello WPtel: [phone] (30 min) Complex 04/19/2016 Patient Education: Patient Medication Summary Completed 04/19/2016 Patient Education: Obesity Completed 04/19/2016 Appointment: Rika Bello WPtel: [phone] (30 min) Complex 04/18/2016 Visit Plan: [...] to allow for greater blood glucose control. FNX-wsyninlduy-aa changes in medications at this time. Dysuria-UA negative-needs pelvic exam due to pt c/o vaginal discharge 04/11/2016 Appointment: Rika Bello WPtel: [address] [phone] (30 min) Complex 04/11/2016 Patient Education: Patient Medication Summary Completed 04/11/2016 Patient Education: Obesity Completed 04/11/2016 Appointment: R[facility]ello [facility]Ptel: [phone] [place] (30 min) Complex 04/08/2016 Visit Plan: [...] edema. 03/11/2016 Appointment: Rika Bello [facility]Ptel: [phone] (30 min) Complex 03/11/2016 Patient Education: Patient [...] use 02/26/2016 Appointment: Rika Bello WPtel: [phone] [place] (30 min) Complex 02/26/2016 Patient Education: Patient Medication Summary Completed 02/26/2016 Appointment: Rika Bello [facility]Ptel: [phone] [place] (30 min) Complex 02/25/2016 Appointment: Rika Bellotel: [phone] [place] (30 min) Complex 02/23/2016 Appointment: Lab [...] mold 02/02/2016 Appointment: Rika Bello WPtel: [phone] (30 min) Complex 02/02/2016 Patient Education: Patient Medication Summary Completed 02/02/2016 Appointment: Tess[facility]ta [facility]el[facility] (15 min) Moderate 01/21/2016 Appointment: Rika Bello WPtel: [phone] (30 min) Complex 01/14/2016 Visit Plan: Hypertension [...] Patient Medication Summary Completed 12/17/2015 Visit Plan: Rsfzkdi-zljcuomlb-bvuy head injury on 12/05-did not go to ER-patient sent for STAT CT scan of head-schedule appt with Dr Dyer Adrenal insufficiency-patient suddenly stopped prednisone-instructed patient to restart and taper prednisone as directed Rib cckh-rxhrd-dpklix fall-xray ribs 12/08/2015 Appointment: Rika Bello WPtel: [phone] [place] (15 min) Moderate 12/08/2015 Appointment: Rika Bello WPtel: 101[address] [phone] (30 min) Complex 12/08/2015 Patient Education: Patient Medication Summary Completed 12/08/2015 Care Plan: COMPLETE CBC AUTOMATED LOINC : 92712-9 Pending 12/08/2015 Visit Plan: Hypertension - well [...] and instructed patient to get new machine aan laura as that is part of the reason she is so tired Tachycardia-follow up with Dr Dyer 11/27/2015 Patient Education: Patient Medication Summary Completed 11/27/2015 Visit Plan: ER follow up - Dr. Motta in to see pt - pt was given a script for a roasterman prednisone taper - pt has not started [...] Dr. Mejia 10/27/2015 Appointment: Rika Bello WPtel: [address] [place], [place] [phone] (30 min) Complex 10/27/2015 Patient Education: Patient Medication Summary Completed 10/27/2015 Patient Education: Obesity Completed 10/27/2015 Care Plan: Referral Order SNOMED-CT : 718023725 Pending 10/27/2015 Referral: Matt Pavon [facility]:[phone] [facility] Referral Initiated 10/21/2015 Visit Plan: [...] pain. 09/29/2015 Appointment: Rika Bello WPtel: [phone] [facility] - Welcome to Medicare visit 09/29/2015 Patient Education: Patient Medication Summary Completed 09/29/2015 Patient Education: Obesity Completed 09/29/2015 Care Plan: Referral Order SNOMED-CT : 837249986 Pending 09/29/2015 Care Plan: BMI Above normal [...] min) Complex 05/05/2015 Appointment: Rika Bello WPtel: [address] [place], [place] [phone] (30 min) Complex 04/27/2015 Visit Plan: Cellulitis [...] Hypertension Completed 03/03/2015 Appointment: Rika Bello WPtel: [phone] [phone] [place] (30 min) Complex 02/24/2015 Appointment: (30 min) Complex 01/29/2015 Appointment: Tessie Motta [facility]Ptel: [facility] [place] (15 min) Moderate 01/22/2015 Visit Plan: Blister of right lower leg-fluids removed with #27 gauze needle and compression dressing applied-refer to wound care for evaluation and management-patient is at high risk of developing large ulcer due to diabetes, noncompliance and poor hygiene. Rash right leg-start oral abx and bactroban as directed Vxpsk-flxyuajhghwt-bxx markie wraps, elevate leg, and again instructed [...] eating out. 01/01/2015 Appointment: Tessie Motta WPtel: [phone] [facility] [place] (15 min) Moderate 01/01/2015 Patient Education: [...] Care Plan: COMPLETE CBC AUTOMATED LOINC : 75179-3 Ordered 11/04/2014 Care Plan: URINALYSIS NONAUTO W/O SCOPE LOINC : 61160-6 Ordered 11/04/2014 Appointment: Follow up 10/07/2014 Visit Plan: Edema - pt has been advised to elevate legs to prevent dependent edema, compression has been recommended to help to naturally decrease peripheral edema. Diuretic use has been discussed and pt has been instructed in appropriate use of such medication as necessary to further attempt to reduce peripheral edema. Eqealsmhdl-qkeqbfpl-da change in treatment- continue compression hose-decrease salt/sodium in diet-call if symptoms worsen or do not resolve Tqtmlqzwa-ojaalvv-acpflwae nasonex to twice daily as directed 09/08/2014 [...] worsen. 06/12/2014 Appointment: Rika Bello WPtel: 1015 [phone] [place] [address] Follow up 06/12/2014 Patient Education: Patient Medication Summary Completed 06/12/2014 Patient Education: .Amazing charts Exercise for Sciatica Completed 06/12/2014 Care Plan: COMPLETE CBC AUTOMATED LOINC : 90100-2 Ordered 06/12/2014 Visit Plan: Cellulitis - continue [...] Summary Completed 05/26/2014 Appointment: Tessie Motta WPtel: [phone] Lab Draw 04/21/2014 Patient Education: Patient [...] home. 02/13/2014 Appointment: Tessie Motta WPtel: [facility] Follow up 02/13/2014 Patient Education: Patient [...] 01/27/2014 Appointment: Tessie Motta WPtel: 101[address] [facility] Follow up 01/27/2014 Patient Education: Patient Medication Summary Completed 01/27/2014 Appointment: Rika Bello WPtel: [phone] Follow up 01/02/2014 Visit Plan: Open wound of ltt-zempzobm-ddnwlbjw with dressing changes as directed-call for increase [...] Completed 12/26/2013 Appointment: Tessie Motta WPtel: [phone] Follow up 12/24/2013 Visit Plan: Open wound of right leg-debrided today in the office-instructed on wound care-follow up as directed. Call with any questions, concerns, or worsening symptoms. Culture of wound today in the office-RX for abx sent to patient's pharmacy and instructed on use. Patient verbalized understanding of plan. 12/12/2013 Appointment: Rika Bello WPtel: [phone] Other 12/12/2013 Patient Education: Patient Medication Summary Completed 12/12/2013 Appointment: Tessie Motta WPtel: [facility]9 [facility] Follow up 11/20/2013 Visit Plan: negative ua 11/18/2013 Appointment: Tessie Motta WPtel: [facility]2 [facility] Lab Draw 11/18/2013 Patient Education: Patient Medication [...] Completed 11/14/2013 Visit Plan: Open wound right vxs-upttgg-hzlx if opens up Edema - pt has been advised to elevate legs to prevent dependent edema, compression has been recommended to help to naturally decrease peripheral edema. Diuretic use has been discussed and pt has been instructed in appropriate use of such medication as necessary to further attempt to reduce peripheral edema. 10/21/2013 Appointment: Rika Bello WPtel: [address] [place] [address] Follow up 10/21/2013 Patient Education: Patient Medication Summary Completed 10/21/2013 Appointment: Rika Bello WPtel: [address] [place] [address] Follow up 10/17/2013 Appointment: Tessie Motta WPtel: [address] [place] [address] Follow up 10/10/2013 Visit Plan: Hypertension - [...] for pain. 10/03/2013 Appointment: Rika Bello WPtel: [address] [place] [address] Follow up 10/03/2013 Patient Education: Patient Medication [...] of plan. 09/23/2013 Appointment: Tessie Motta WPtel: [address] [place] [address] Nurse Visit 09/23/2013 Patient Education: Patient Medication [...] 2 WEEKS. 09/20/2013 Appointment: Rika Bello WPtel: [address] [place], [place] [phone] Follow up 09/20/2013 Patient Education: Patient Medication Summary Completed 09/20/2013 Patient Education: Hypertension Completed 09/20/2013 Appointment: Tessie Motta WPtel: [address] [place], [place] [address] Follow up 09/16/2013 Visit Plan: Edema - [...] verbalized understanding. 09/10/2013 Appointment: Rika Bello WPtel: [address] [place], [place] [phone] [place] [address] Other 09/10/2013 Patient Education: Patient Medication Summary Completed 09/10/2013 Appointment: Rika Bello WPtel: [address] [place], [place] [phone] [place] [address] Follow up 09/02/2013 Visit Plan: Diabetes Mellitus [...] peripheral edema. 08/19/2013 Appointment: Rika Bello WPtel: [address] [place], [place] [phone] [place] [address] Other 08/19/2013 Patient Education: Patient Medication Summary [...] as scheduled 08/01/2013 Appointment: Rika Bello WPtel: [address] [place], [place] [phone] Follow up 08/01/2013 Patient Education: Patient Medication Summary Completed 08/01/2013 Appointment: Rika Bello WPtel: [address] [place], [place] [phone] [place] Follow up 07/25/2013 Appointment: Tessie Motta WPtel: [address] [place], [place] [phone] [place] Follow up 07/25/2013 Visit Plan: Bister of foot-dressing changes discussed with patient and instructed her to keep her foot clean and dry-STOP WEARING FLIP FLOPS as they are causing friction over blistered area. Keep follow up appointment as scheduled. Call for redness, drainage or other s/s of infection. 07/19/2013 Appointment: Rika Bello WPtel: [address] [place], [place] [phone] Other 07/19/2013 Patient Education: Patient Medication Summary [...] peripheral edema. 07/15/2013 Appointment: Rika Bello WPtel: [facility] [address] Other 07/15/2013 Patient Education: Patient Medication Summary Completed 07/15/2013 Patient Education: Hypertension Completed 07/15/2013 Appointment: Rika Bello WPtel: [address] [place], [place] [phone] Follow up 07/01/2013 Appointment: Rika Bello WPtel: [address] [place], [place] [phone] Lab Draw 06/28/2013 Patient Education: Patient Medication [...] 900mg tid. 06/27/2013 Appointment: Tessie Motta WPtel: [facility] Other 06/27/2013 Patient Education: Patient Medication Summary Completed 06/27/2013 Appointment: Tessie Motta WPtel: [facility] [place] Other 06/24/2013 Visit Plan: Diabetes Mellitus [...] AFTERNOON. 06/10/2013 Appointment: Tessie Motta WPtel: [phone] [place] Follow up 06/10/2013 Patient Education: Patient Medication Summary Completed 06/10/2013 Appointment: Tessie Motta WPtel: [phone] [facility] [place] Follow up 06/06/2013 Visit Plan: [...] acutely worsen. 05/07/2013 Appointment: Tessie Motta WPtel: [address] [place], [place] [phone] Follow up 05/07/2013 Patient Education: Patient Medication Summary Completed 05/07/2013 Appointment: Tessie Motta WPtel: [address] [place], [place] [phone] Follow up 04/30/2013 Visit Plan: Edema - [...] acute changes. 04/16/2013 Appointment: Tessie Motta WPtel: [address] [place], [place] [phone] Follow up 04/16/2013 Patient Education: Patient Medication Summary Completed 04/16/2013 Appointment: Tessie Motta WPtel: [address] [place], [place] [phone] Follow up 04/04/2013 Visit Plan: Lumbago-continue physical [...] peripheral edema. 03/21/2013 Appointment: Rika Bello WPtel: [address] [place], [place] [phone] [place] [address] Follow up 03/21/2013 Patient Education: Patient Medication Summary Completed 03/21/2013 Appointment: Tessie Motta WPtel: [address] [place], [place] [phone] Follow up 03/20/2013 Appointment: Tessie Motta WPtel: [address] [place] [address] Follow up 03/05/2013 Visit Plan: Edema-significantly improved- [...] less controlled. 02/12/2013 Appointment: Rika Bello WPtel: [address] [place], [place] [phone] [facility] follow up 02/12/2013 Patient Education: Patient Medication [...] Dyspnea - recommended pt to see [facility] [employer] when he gets to [facility] for further evaluation and work-up. 02/04/2013 Appointment: Tessie Motta WPtel: [facility] Follow up 02/04/2013 Patient Education: Patient [...] not improve. 01/17/2013 Appointment: Rika Bello WPtel: [phone] Follow up 01/17/2013 Patient Education: Patient Medication Summary Completed 01/17/2013 Patient Education: Hypertension Completed 01/17/2013 Appointment: Tessie Motta WPtel: [facility] Follow up 01/16/2013 Appointment: Tessie Motta WPtel: [facility] Follow up 01/10/2013 Appointment: Rika Bello WPtel: [phone] [place] Lab Draw 01/01/2013 Patient Education: Patient [...] Hypothyroidism-check labs 12/31/2012 Appointment: Rika Bello WPtel: 1015 [phone] Follow up 12/31/2012 Appointment: Rika Bello WPtel: 1015 [phone] Sick 12/31/2012 Patient Education: Patient Medication [...] labs. 12/20/2012 Appointment: Rika Bello WPtel: [address] [place], [place] [phone] [place] [address] Sick 12/20/2012 Patient Education: Patient Medication Summary Completed 12/20/2012 Patient Education: Hypertension Completed 12/20/2012 Appointment: Tessie Motta WPtel: [address] [place] [address] Lab Draw 11/05/2012 Patient Education: Patient Medication Summary Completed 11/05/2012 Visit Plan: Bronchitis - acute case of bronchitis identified. Pt has been given antibiotics, breathing treatments as appropriate, and pt has been instructed to call if symptoms are not improved, or if symptoms acutely worsen. 10/29/2012 Appointment: Tessie Motta WPtel: [address] [place], [place] [phone] Sick 10/29/2012 Patient Education: Patient Medication Summary Completed 10/29/2012 Visit Plan: Joint Injection-left SI joint - Pt was given post - injection instructions. The pt has been advised to use antiinflammatories post injection today, ice to the injected site, call if redness, warmth, or increased pain occurs at the site of injection. 09/21/2012 Appointment: Rika Bello WPtel: [facility]5 [phone] Follow up 09/21/2012 Patient Education: Patient Medication [...] of control. 09/06/2012 Appointment: Tessie Motta WPtel: [facility]5 [facility] Follow up 09/06/2012 Patient Education: Patient Medication [...] readings are starting to become less controlled. Degkupbv-ngmeeuxd-hdkkhags probiotic-continue to hold metformin and repeat labs before appt in 2 weeks. Call for abd pain, worsening diarrhea, or other concerns. 08/23/2012 Appointment: Tessie Motta WPtel: [facility] Follow up 08/23/2012 Patient Education: Patient [...] OF PLAN. 08/13/2012 Appointment: Rika Bello WPtel: [phone] [place] Follow up 08/13/2012 Patient Education: Patient [...] concerns. 08/07/2012 Appointment: Rika Bello WPtel: 101[address] [phone] [place] Other 08/07/2012 Patient Education: Patient Medication Summary Completed 08/07/2012 Patient Education: Hypertension Completed 08/07/2012 Visit Plan: UA-sent for culture 07/19/2012 Appointment: Rika Bello WPtel: [phone] [place] Lab Draw 07/19/2012 Patient Education: Patient [...] directed 07/06/2012 Appointment: Rika Bello WPtel: 101[address] [phone] Sick 07/06/2012 Patient Education: Patient Medication Summary [...] today 06/07/2012 Appointment: Tessie Motta WPtel: 101[address] [facility] Follow up 06/07/2012 Appointment: Tessie Motta WPtel: 101[address] [facility] Follow up 06/07/2012 Patient Education: Patient Medication [...] days. 05/28/2012 Appointment: Rika Bello WPtel: 101[address] [phone] Follow up 05/28/2012 Patient Education: Patient [...] attempt to reduce peripheral edema. 05/17/2012 Appointment: iRka Bello WPtel: [phone] ER Follow UP 05/17/2012 Patient Education: Patient [...] the office 05/02/2012 Appointment: Tessie Motta WPtel: [facility] Follow up 05/02/2012 Patient Education: Patient Medication Summary Completed 05/02/2012 Patient Education: Hypertension Completed 05/02/2012 Appointment: Kalia Tessie WPtel: [facility]3 [facility] Follow up 04/25/2012 Visit Plan: Sinusitis [...] acute concerns. 04/10/2012 Appointment: Rika Bello WPtel: [phone] Follow up 04/10/2012 Patient Education: Patient Medication [...] I&D on Monday02/27/2012 Appointment: Rika Bello WPtel: [address] [place], [place] [phone] [place] [address] Follow up 02/27/2012 Patient Education: Patient Medication [...] to thighs. 02/15/2012 Appointment: Rika Bello WPtel: [address] [place], [place] [phone] Follow up 02/15/2012 Patient Education: Patient Medication [...] toes to thighs. RX sent to patient's [facility]. Chest xray at the hospital [...] of urine. 02/01/2012 Appointment: Rika Bello WPtel: [facility]3 [place] [phone] [place] [address] Other 02/01/2012 Patient Education: Patient Medication Summary [...] buttocks 12/14/2011 Appointment: Tessie Motta WPtel: 101[address] [facility] Other 12/14/2011 Patient Education: Patient Medication Summary Completed 12/14/2011 Appointment: Tessie Motta WPtel: 101[address] [facility] Follow up 12/08/2011 Visit Plan: N/V/D - [...] less controlled. 11/30/2011 Appointment: Rika Bello WPtel: [phone] [facility] 11/30/2011 Patient Education: Patient Medication Summary Completed [...] back pain. 11/17/2011 Appointment: Tessie Motta WPtel: [facility] Other 11/17/2011 Patient Education: Patient Medication [...] - uncontrolled - will consult her primary tobacco blender for assistance with control her her heart rate. Ulcer of toe - continue with topical antibiotics as previously directed, return to clinic as previously directed, call for acute change in symptoms, worsening redness, warmth, discharge. 11/03/2011 Appointment: Tessie Motta WPtel: [facility]5 [facility] Other 11/03/2011 Patient Education: Patient Medication [...] symptoms, worsening redness, warmth, discharge. 10/24/2011 Appointment: SadorusTessie WPtel: 1015 [facility] Other 10/24/2011 Patient Education: Patient Medication [...] lymphoma. 09/26/2011 Appointment: Rika Bello WPtel: [phone] [place] Other 09/26/2011 Patient Education: Patient Medication [...] Completed 2011 Appointment: Tessie Motta WPtel: [address] [place] [address] Other 09/05/2011 Visit Plan: Sinusitis - Pt [...] medication. 09/01/2011 Appointment: Tessie Motta WPtel: [address] [place] [address] Other 09/01/2011 Patient Education: Patient Medication Summary Completed 09/01/2011 Visit Plan: Sinusitis - continue with ciprofloxacin and start on corcidin HBP. Anxiety - start the xanax 0.5mg 1/2 pill twice daily. 08/15/2011 Appointment: Tessie Motta WPtel: [address] [place] [address] Other 08/15/2011 Appointment: Tessie Motta WPtel: [address] [place] [address] Other 08/15/2011 Patient Education: Patient Medication Summary [...] Plan for dem[facility]ol injection [facility] at [facility]. 08/09/2011 Appointment: Rika Bello WPtel: [address] [place] [address] Other 08/09/2011 Patient Education: Patient Medication Summary [...] not resolve 08/01/2011 Appointment: Rika Bello WPtel: [address] [place] [address] Other 08/01/2011 Patient Education: Patient Medication Summary Completed 08/01/2011 Appointment: Rika Bello WPtel: [address] [place] [address] [place] Other 07/26/2011 Appointment: Tessie Motta WPtel: [address] [place] [address] Other 07/18/2011 Visit Plan: Diabetes Mellitus - [...] management sparingly. 06/20/2011 Appointment: Tessie Motta WPtel: [facility] [facility] [id number] Other 06/20/2011 Patient Education: Patient Medication Summary [...] 1 month. 04/18/2011 Appointment: Tessie Motta WPtel: [phone] [id number] Other 04/18/2011 Patient Education: Patient Medication Summary Completed 04/18/2011 Patient Education: High Blood Pressure: Essential Hypertension Completed 2010 Appointment: Tessie Motta WPtel: [phone] [id number] Other 04/12/2011 Appointment: Tessie Motta WPtel: [phone] [id number] [place] Other 02/16/2011 Referral: Pavon Matt HPtel:[phone] [id number] [place] Referral Initiated Referral: Yareli Raines Referral [...] up in the office as directed . Sinusitis - Pt has [...] change in symptoms, worsening redness, warmth, discharge. Arhduzvn-ziqgusejnamq-yumnj labs today-patient has been given orders multiple [...] change in blood pressure readings at home. RQ-cjadqxgtdrpo-zonmujgij strict diet and exercise with patient Low txkriqaln-keibeanj-outlcity to monitor Abd jazd-ljigvgei-gn changes . Diabetes Mellitus - controlled - [...] further attempt to reduce peripheral edema. . Aek-ackyocoffr-rf changes Anemia-check cbc today Dental infection-on clindamycin [...] leg-start oral abx and bactroban as directed Kwhxl-fnkcxfsnbaez-qto markie wraps, elevate leg, and again instructed patient to cut back on pop and salty foods. Pt has been instructed to stop eating [...] readings are starting to become less controlled. Qhituhlo-kbttuucd-tukjkcaz probiotic-continue to hold metformin and repeat labs before appt in 2 weeks. Call for abd pain, worsening diarrhea, or other concerns. check UA . Dysuria-urinary incontinence-culture urine HTN-elevated today-monitor at home -follow up with tobacco blender . Open wound of bgg-ouawoiss-awbbfysn with dressing changes as directed-call for increase [...] symptom management sparingly. . Open wound right csk-symoim-tgzo if opens up Edema - pt has [...] to allow for greater blood glucose control. XXX-bmwkhnryxp-ps changes in medications at this time. Dysuria-UA [...] - uncontrolled - will consult her primary tobacco blender for assistance with control her her heart [...] with results.Patient and verbalized understanding of plan. [facility]-pgjnmbeugtu-kvobl labs-monitor blood pressure and heart rate closely- [...] diflucan-call if symptoms do not resolve [place] balm over the counter for the knee. [...] Call sooner if area opens up. . Cdgjvim-khnjyjqyr-loru head injury on 12/05-did not go to ER-patient sent for STAT CT scan of head-schedule appt with Dr Dyer Adrenal insufficiency-patient suddenly stopped prednisone-instructed patient to restart and taper prednisone as directed Rib oopn-ynsfr-wrwkql fall-xray ribs START CHECKING BLOOD SUGARS!!!! BRING [...] in one month for weight check. . Edema - pt has been advised to elevate legs to prevent dependent edema, compression has been recommended to help to naturally decrease peripheral edema. Diuretic use has been discussed and pt has been instructed in appropriate use of such medication as necessary to further attempt to reduce peripheral edema. Wqhmpulkmc-bywiifrh-mr change in treatment-continue compression hose-decrease salt/sodium in diet-call if symptoms worsen or do not resolve Fbguetxpb-skjfspk-velllxtd nasonex to twice daily as directed pt [...] was given a script for a intermediate prednisone taper - pt has not started [...] an appointment with her eye doctor ANA ALURA, and up date me of her symptoms [...] Q HS RESCHEDULE APPT WITH DR RAINES Pionmoqpd-ojyiwkled-ay for bactroban ointment provided and instructed on use FCJ-bonqflufye-ov change in medications Mildly elevated liver enzymes-discussed [...] Dyspnea - recommended pt to see [facility] when he gets to [facility] for further evaluation and work-up. refer [...] readings are starting to become less controlled. the dose on 01/01/15 PM - take [...] patient is stable, monitor for acute changes. Take lasix daily x 5 days Take [...] Kenalog injection today in the office . Open wound of right leg-debrided today [...] a prescription for lasix and potassium to [facility]. Take 2 TABLETS of LASIX and [...] toes to thighs. RX sent to patient's [facility]. Chest xray at the hospital [...] control. Yeast infection -rx for nystatin powder TYDM-obljmkcdp-tmmyqx tfdrpgjzv-aouo-fmarwxh is oxygen dependent due to severely compromised [...] control. Yeast infection -rx for nystatin powder MURO-zqoltmjdh-pdeipe jfkmrfxdw-modv-yyqyrhn is oxygen dependent due to severely compromised [...] control. 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 Diabetes Mellitus - ucontrolled- I [...] to become less controlled. Low potassium-check labs ISS-muiquraqys-dc changes Afib-check digoxin level with labs Abdominal pain-refill levsin for prn use -call if pain uncontrolled DR Yareli Raines-you need to reschedule your appt with her -she is a automation controls specialist . Diabetes Mellitus - ucontrolled- I [...] to become less controlled. Low potassium-check labs XES-etdkznkkri-cn changes Afib-check digoxin level with labs Abdominal [...] PAIN MANAGEMENT FOR INJECTIONS STOP BY VIA eReceipts FOR NEW CPAP SUPPLIES . Hypertension - [...] every night DM-check Hgb A1C Hypothyroidism-check level Hmhuhfi-nbowjrnpew-urh well controlled-increase cymbalta-recommend counseling . Diabetes Mellitus [...] she needs to...RESCHEDULE APPT WITH DR RAINES ASL-kvdttrhpcn-qd change in medications CPAP NEBULIZER CHECK UA [...]
--- OUTSIDE RECORDS SUMMARY | 2018-06-04 20:05 | XMS REPORT | CCD ---
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 Unknown Has never used illegal drugs 02/11/2011 Allergies, Adverse Reactions, Alerts Substance Reaction Codes Entered Date Inactivated Date Status CODEINE RxNorm: 2670 02/11/2011 No Inactive Date Active * NO KNOWN FOOD ALLERGIES Unknown 02/01/2012 No Inactive Date Active cefdinir RxNorm: 84749 08/07/2012 No Inactive Date Active PENICILLINS Unknown [...] Start Date Stop Date Status Fill Instructions Percocet 10 mg-325 mg tablet RxNorm: 9868147 1-2 Tablet(s) PO Q6 PRN 01/04/2018 01/18/2018 Active promethazine 25 mg tablet RxNorm: 155124 Tablet(s) 1 Tablet(s) PO Q6 PRN TAKE NEEDED ONLY!!! 01/02/2018 04/01/2018 Active Percocet 10 mg-325 mg tablet RxNorm: 7492557 1-2 Tablet(s) PO Q6 PRN 01/02/2018 01/03/2018 Inactive pantoprazole 40 mg tablet,delayed release RxNorm: 882743 TAKE 1 TABLET BY MOUTH ONCE DAILY 12/25/2017 No Stop Date Active mupirocin 2 % topical ointment RxNorm: 245275 1 Application TOP BID 12/22/2017 12/31/2017 Inactive fluconazole 150 mg tablet RxNorm: 221080 1 Tablet(s) PO every other day x 3 doses 12/14/2017 12/23/2017 Inactive hyoscyamine 0.125 mg sublingual tablet RxNorm: 1905168 Tablet(s) 1 Tablet(s) SL TID as needed 12/13/2017 04/11/2018 Active Percocet 10 mg-325 mg tablet RxNorm: 1864923 1-2 Tablet(s) PO Q6 PRN 12/13/2017 12/27/2017 Inactive nystatin 100,000 unit/gram topical powder RxNorm: 248749 APPLY POWDER TOPICALLY 4 TIMES DAILY 12/11/2017 No Stop Date Active Xanax 0.5 mg tablet RxNorm: 111576 Tablet(s) TAKE ONE TABLET BY MOUTH THREE TIMES DAILY NEEDED 12/06/20172017 Active nitrofurantoin 50 mg capsule RxNorm: 490587 1 Capsule(s) PO BID 12/01/2017 11/30/2017 Inactive take probiotic BID x 7 days nitrofurantoin 50 mg capsule RxNorm: 071812 1 Capsule(s) PO BID 12/01/2017 12/07/2017 Inactive take probiotic BID x 7 days mupirocin 2 % topical ointment RxNorm: 606343 1 Application TOP BID 11/27/2017 12/06/2017 Inactive Tessalon Perles 100 mg capsule RxNorm: 318036 Capsule(s) 2 Capsule(s) PO TID as needed 11/21/2017 No Stop Date Active nystatin 100,000 unit/mL oral suspension RxNorm: 766031 5 Milliliter(s) PO QID swish and swallow 11/17/2017 11/26/2017 Inactive nystatin 100,000 unit/mL oral suspension RxNorm: 082016 5 Milliliter(s) PO QID swish and swallow 11/17/2017 11/16/2017 Inactive Toprol XL 100 mg tablet,extended release RxNorm: 651475 TAKE ONE TABLET BY MOUTH TWICE DAILY 11/15/2017 No Stop Date Active ropinirole 1 mg tablet RxNorm: 993624 Tablet(s) BID 11/14/2017 03/13/2018 Active Diflucan 150 mg tablet RxNorm: 661610 Tablet(s) every other day 1 Tablet(s) PO every other day 11/14/2017 11/16/2017 Inactive Percocet 10 mg-325 mg tablet RxNorm: 2843180 1-2 Tablet(s) PO Q6 PRN 11/09/2017 11/23/2017 Inactive Flonase Allergy Relief 50 mcg/actuation nasal spray, suspension RxNorm: 1888200 2 [place] NASAL daily 11/06/20172017 Active cyclobenzaprine 10 mg tablet RxNorm: 905524 Tablet(s) TABLET(S) 1 TABLET(S) PO NEEDED TAKE 1 TABLET BY MOUTH EVERY 8 HOURS NEEDED 2017 No Stop Date Active Cymbalta 30 mg capsule,delayed release RxNorm: 458832 TAKE ONE CAPSULE BY MOUTH ONCE DAILY - TAKE WITH THE 60 MG DOSE FOR A TOTAL OF 90 MG No Stop Date Active Lantus Solostar U-100 Insulin 100 unit/mL (3 mL) subcutaneous pen RxNorm: 894401 Unit(s) SQ 35 units QAM and 55 units QHS Unit(s) SQ 10/27/2017 No Stop Date Active Wants insulin pens Percocet 10 mg-325 mg tablet RxNorm: 2256724 1-2 Tablet(s) PO Q6 PRN 10/27/2017 11/08/2017 Inactive promethazine 25 mg tablet RxNorm: 478457 Tablet(s) 1 Tablet(s) PO Q6 PRN TAKE NEEDED ONLY!!! 10/27/2017 01/01/2018 Inactive Xanax 0.5 mg tablet RxNorm: 714633 Tablet(s) TAKE ONE TABLET BY MOUTH THREE TIMES DAILY 10/20/2017 12/16/2017 Inactive Tessalon Perles 100 mg capsule RxNorm: 346103 Capsule(s) 2 Capsule(s) PO TID as needed 10/19/2017 11/20/2017 Inactive Diflucan 150 mg tablet RxNorm: 086731 1 Tablet(s) PO every other day 10/15/2017 11/13/2017 Inactive Percocet 10 mg-325 mg tablet RxNorm: 5620802 1-2 Tablet(s) PO Q6 PRN 10/06/2017 10/20/2017 Inactive pantoprazole 40 mg tablet,delayed release RxNorm: 029234 1 Tablet(s) PO BID 10/03/2017 03/31/2018 Active Cymbalta 60 mg capsule,delayed release RxNorm: 595101 TAKE ONE CAPSULE BY MOUTH ONCE DAILY 09/21/2017 No Stop Date Active Diflucan 150 mg tablet RxNorm: 843247 1 Tablet(s) PO every other day 09/15/2017 09/19/2017 Inactive hyoscyamine 0.125 mg sublingual tablet RxNorm: 6328420 1 Tablet(s) SL TID as needed 09/08/2017 12/12/2017 Inactive Lantus Solostar U-100 Insulin 100 unit/mL (3 mL) subcutaneous pen RxNorm: 945382 Unit(s) SQ 35 units QAM and 55 units QHS Unit(s) SQ 09/06/2017 09/20/2017 Inactive Wants insulin pens Lasix 40 mg tablet RxNorm: 775645 TAKE ONE TABLET BY MOUTH TWICE DAILY 08/25/2017 No Stop Date Active ropinirole 1 mg tablet RxNorm: 482539 TAKE ONE TABLET BY MOUTH AT BEDTIME 08/25/2017 11/13/2017 Inactive Lantus U-100 Insulin 100 unit/mL subcutaneous solution RxNorm: 433453 35 units QAM and 55 units QHS Unit(s) SQ 08/21/2017 09/05/2017 Inactive Tessalon Perles 100 mg capsule RxNorm: 769066 Capsule(s) 2 Capsule(s) PO TID as needed 08/18/2017 10/18/2017 Inactive Percocet 10 mg-325 mg tablet RxNorm: 8301394 1-2 Tablet(s) PO Q6 PRN 08/16/2017 08/30/2017 Inactive pantoprazole 40 mg tablet,delayed release RxNorm: 589664 TAKE ONE TABLET BY MOUTH TWICE DAILY 08/14/2017 08/13/2017 Inactive pantoprazole 40 mg tablet,delayed release RxNorm: 693550 1 Tablet(s) PO daily 08/14/2017 10/02/2017 Inactive promethazine 25 mg tablet RxNorm: 439761 Tablet(s) 1 Tablet(s) PO Q6 PRN TAKE NEEDED ONLY!!! 08/11/2017 10/26/2017 Inactive mupirocin 2 % topical ointment RxNorm: 369917 APPLY TO SORE IN BELLY BUTTON TWICE DAILY 08/07/2017 No Stop Date Active omeprazole 20 mg capsule,delayed release RxNorm: 473932 1 Capsule(s) PO daily TAKE 1 CAPSULE BY MOUTH ONCE DAILY 08/07/2017 10/26/2017 Inactive nystatin 100,000 unit/mL oral suspension RxNorm: 561394 5 Milliliter(s) PO QID swish and swallow 08/07/2017 08/16/2017 Inactive omeprazole 20 mg capsule,delayed release RxNorm: 537467 1 Capsule(s) PO BID TAKE 1 CAPSULE BY MOUTH TWICE DAILY 08/03/2017 08/06/2017 Inactive Diflucan 150 mg tablet RxNorm: 962163 1 Tablet(s) PO daily 08/05/2017 Inactive hyoscyamine 0.125 mg sublingual tablet RxNorm: 3469196 1 Tablet(s) SL TID as needed 08/03/2017 09/01/2017 Inactive gentamicin 0.3 % eye drops RxNorm: 825980 2 Drop(s) ophthalmic (eye) TID 08/03/2017 08/09/2017 Inactive Levaquin 500 mg tablet RxNorm: 547007 1 Tablet(s) PO every other day x3 doses 07/27/2017 08/02/2017 Inactive gentamicin 0.3 % eye drops RxNorm: 090365 2 Drop(s) ophthalmic (eye) TID 07/27/2017 08/02/2017 Inactive dicyclomine 10 mg capsule RxNorm: 047464 1 Capsule(s) PO TID 08/02/2017 Inactive Levaquin 500 mg tablet RxNorm: 784084 1 Tablet(s) PO daily 12/201707/26/2017 Inactive Lantus U-100 Insulin 100 unit/mL subcutaneous solution RxNorm: 884491 INJECT 35 UNITS SUBCUTANEOUSLY IN THE MORNING AND 55 UNITS AT BEDTIME 07/24/2017 09/05/2017 Inactive Tessalon Perles 100 mg capsule RxNorm: 982202 2 Capsule(s) PO TID as needed 07/24/2017 08/17/2017 Inactive Percocet 10 mg-325 mg tablet RxNorm: 3519865 1-2 Tablet(s) PO Q6 PRN 07/21/2017 08/04/2017 Inactive promethazine 25 mg tablet RxNorm: 232137 1 Tablet(s) PO Q6 PRN 1 Tablet(s) PO Q6 PRN 07/19/2017 07/26/2017 Inactive Cartia XT 240 mg capsule,extended release RxNorm: 867122 1 Capsule(s) PO daily 06/27/2017 06/21/2018 Active potassium chloride ER 20 mEq tablet,extended release RxNorm: 085059 Tablet(s) TAKE ONE TABLET BY MOUTH ONCE DAILY 06/21/2017 No Stop Date Active digoxin 125 mcg tablet RxNorm: 631288 1 Tablet(s) PO daily 10/18/2017 Inactive gabapentin 600 mg tablet RxNorm: 408846 Tablet(s) TAKE ONE & ONE-HALF TABLETS BY MOUTH THREE TIMES DAILY 06/21/2017 No Stop Date Active Lantus U-100 Insulin 100 unit/mL subcutaneous solution RxNorm: 041026 35 units QAM and 55 units QHS Unit(s) SQ 06/21/2017 07/20/2017 Inactive Please provide 30 day supply Percocet 10 mg-325 mg tablet RxNorm: 7367267 1-2 Tablet(s) PO Q6 PRN 06/21/2017 07/05/2017 Inactive Cartia XT 180 mg capsule,extended release RxNorm: 702303 Capsule(s) BID 06/21/2017 06/26/2017 Inactive Xanax 0.5 mg tablet RxNorm: 997236 Tablet(s) TAKE ONE TABLET BY MOUTH THREE TIMES DAILY 06/21/2017 08/19/2017 Inactive dicyclomine 10 mg capsule RxNorm: 705485 1 Capsule(s) PO TID 07/26/2017 Inactive Lantus U-100 Insulin 100 unit/mL subcutaneous solution RxNorm: 075984 35 units QAM and 55 units QHS Unit(s) SQ 06/13/2017 06/20/2017 Inactive Please provide 30 day supply potassium chloride ER 20 mEq tablet,extended release RxNorm: 214863 TAKE ONE TABLET BY MOUTH ONCE DAILY 06/02/2017 Inactive cyclobenzaprine 10 mg tablet RxNorm: 817722 Tablet(s) TABLET(S) 1 TABLET(S) PO NEEDED TAKE 1 TABLET BY MOUTH EVERY 8 HOURS NEEDED 201711/02/2017 Inactive Tessalon Perles 100 mg capsule RxNorm: 934958 2 Capsule(s) PO TID as needed 06/01/2017 07/23/2017 Inactive promethazine 25 mg tablet RxNorm: 536705 1 Tablet(s) PO Q6 PRN 1 Tablet(s) PO Q6 PRN 05/25/2017 06/01/2017 Inactive gabapentin 600 mg tablet RxNorm: 130639 TAKE ONE & ONE-HALF TABLETS BY MOUTH THREE TIMES DAILY 05/23/2017 06/20/2017 Inactive promethazine 25 mg tablet RxNorm: 829091 1 Tablet(s) PO Q6 PRN 1 Tablet(s) PO Q6 PRN 05/19/2017 05/24/2017 Inactive Flagyl 500 mg tablet RxNorm: 778084 1 Tablet(s) PO TID 201605/26/2017 Inactive Levaquin 500 mg tablet RxNorm: 279058 1 Tablet(s) PO daily 05/16/2017 Inactive Tessalon Perles 100 mg capsule RxNorm: 228307 2 Capsule(s) PO TID as needed 05/17/2017 05/31/2017 Inactive Flagyl 500 mg tablet RxNorm: 403095 1 Tablet(s) PO TID 201605/16/2017 Inactive hyoscyamine 0.125 mg sublingual tablet RxNorm: 8092391 1 Tablet(s) SL TID as needed 05/17/2017 06/12/2017 Inactive Levaquin 500 mg tablet RxNorm: 595559 1 Tablet(s) PO daily 05/23/2017 Inactive Cymbalta 60 mg capsule,delayed release RxNorm: 794085 1 Capsule(s) PO daily take with 30mg tablet 05/16/2017 08/13/2017 Inactive Bentyl 10 mg capsule RxNorm: 352730 1 Capsule(s) PO TID as needed 05/12/2017 06/10/2017 Inactive Levsin 0.125 mg tablet RxNorm: 5991931 1 Tablet(s) PO Q4 PRN 1-2 Tablet(s) PO Q4 PRN 05/11/2017 05/11/2017 Inactive nystatin 100,000 unit/gram topical powder RxNorm: 984088 Gram(s) APPLY POWDER TOPICALLY 4 TIMES DAILY 05/11/20172017 Inactive nystatin 100,000 unit/mL oral suspension RxNorm: 487261 4 Milliliter(s) PO QID swish and swallow 05/10/2017 05/19/2017 Inactive and Monistat over the counter colestipol 1 gram tablet RxNorm: 2782393 TAKE ONE TABLET BY MOUTH TWICE DAILY 05/08/2017 No Stop Date Active Lantus 100 unit/mL subcutaneous solution RxNorm: 172296 30 units QAM and 50 units QHS Unit(s) SQ 04/28/2017 05/27/2017 Inactive Please provide 30 day supply Lantus Solostar 100 unit/mL (3 mL) subcutaneous insulin pen RxNorm: 181538 Unit( s) SQ BID 04/28/2017 06/13/2017 Inactive 30 units q am and 50units at night Lantus 100 unit/mL subcutaneous solution RxNorm: 972223 30 units QAM and 50 units QHS Unit(s) SQ 04/28/2017 04/27/2017 Inactive Please provide 30 day supply Levsin 0.125 mg tablet RxNorm: 2319770 1 Tablet(s) PO Q4 PRN 1-2 Tablet(s) PO Q4 PRN 04/25/2017 05/10/2017 Inactive promethazine 25 mg tablet RxNorm: 336252 1 Tablet(s) PO Q6 PRN 1 Tablet(s) PO Q6 PRN 04/25/2017 05/02/2017 Inactive Toprol XL 100 mg tablet,extended release RxNorm: 204217 TAKE ONE TABLET BY MOUTH TWICE DAILY 04/24/2017 11/14/2017 Inactive Flagyl 500 mg tablet RxNorm: 976658 1 Tablet(s) PO TID 201604/30/2017 Inactive Levaquin 500 mg tablet RxNorm: 774671 1 Tablet(s) PO daily 05/201604/27/2017 Inactive Voltaren 1 % topical gel RxNorm: 459596 4 Gram(s) TOP QID 04/1810/14/2017 Inactive mupirocin 2 % topical ointment RxNorm: 310822 1 Application TOP BID 04/18/2017 04/27/2017 Inactive apply to sore in belly button Lantus Solostar 100 unit/mL (3 mL) subcutaneous insulin pen RxNorm: 075637 Unit( s) SQ BID 04/18/2017 04/27/2017 Inactive 20 units q am and 50units at night levothyroxine 88 mcg tablet RxNorm: 964751 1 Tablet(s) PO daily TAKE ONE TABLET BY MOUTH ONCE DAILY 04/06/2017 04/17/2017 Inactive Xanax 0.5 mg tablet RxNorm: 928099 Tablet(s) TAKE ONE TABLET BY MOUTH THREE TIMES DAILY 04/04/2017 06/02/2017 Inactive Percocet 10 mg-325 mg tablet RxNorm: 8711779 1-2 Tablet(s) PO Q6 PRN 04/04/2017 04/18/2017 Inactive cyclobenzaprine 10 mg tablet RxNorm: 569242 TAKE ONE TABLET BY MOUTH EVERY 8 HOURS NEEDED 04/03/2017 06/01/2017 Inactive potassium chloride ER 20 mEq tablet,extended release RxNorm: 580770 1 Tablet(s) PO daily 03/28/2017 06/01/2017 Inactive nystatin 100,000 unit/gram topical cream RxNorm: 698765 1 Application TOP BID 03/27/2017 04/09/2017 Inactive Levsin 0.125 mg tablet RxNorm: 1383538 1 Tablet(s) PO Q4 PRN 1-2 Tablet(s) PO Q4 PRN 03/27/2017 04/24/2017 Inactive promethazine 25 mg tablet RxNorm: 288080 1 Tablet(s) PO Q6 PRN 03/23/2017 03/29/2017 Inactive nystatin 100,000 unit/gram topical powder RxNorm: 367287 APPLY POWDER TOPICALLY 4 TIMES DAILY 03/17/2017 05/10/2017 Inactive Percocet 10 mg-325 mg tablet RxNorm: 3927729 1-2 Tablet(s) PO Q6 PRN 03/09/2017 03/23/2017 Inactive Levsin 0.125 mg tablet RxNorm: 5992279 1-2 Tablet(s) PO Q4 PRN 03/06/2017 03/26/2017 Inactive promethazine 25 mg tablet RxNorm: 378971 1 Tablet(s) PO Q6 PRN 03/06/2017 03/13/2017 Inactive potassium chloride ER 20 mEq tablet,extended release RxNorm: 428085 1 Tablet(s) PO BID 02/23/2017 03/09/2017 Inactive Levsin/SL 0.125 mg sublingual tablet RxNorm: 2027261 1-2 Tablet(s) SL Q4 PRN 02/17/2017 03/26/2017 Inactive potassium chloride ER 20 mEq tablet,extended release RxNorm: 796158 1 Tablet(s) PO BID 02/17/2017 02/21/2017 Inactive magnesium oxide 400 mg tablet RxNorm: 069056 1 Tablet(s) PO daily 02/17/2017 02/21/2017 Inactive then twice weekly thereafter Levsin 0.125 mg tablet RxNorm: 7680254 1-2 Tablet(s) PO Q4 PRN 02/17/2017 02/16/2017 Inactive promethazine 25 mg tablet RxNorm: 569092 1 Tablet(s) PO Q6 PRN 02/10/2017 03/05/2017 Inactive Percocet 10 mg-325 mg tablet RxNorm: 2855288 1-2 Tablet(s) PO Q6 PRN 02/09/2017 02/23/2017 Inactive Cymbalta 30 mg capsule,delayed release RxNorm: 517961 1 Capsule(s) PO daily take with 60mg tablet 02/06/2017 05/06/2017 Inactive take with 60mg=90mg Cymbalta 60 mg capsule,delayed release RxNorm: 201928 1 Capsule(s) PO daily take with 30mg tablet 02/06/2017 05/06/2017 Inactive Vitamin D2 50,000 unit capsule RxNorm: 983363 1 Capsule(s) PO daily 01/17/2017 01/16/2017 Inactive daily x 6 mths Tresiba FlexTouch U-100 100 unit/mL (3 mL) subcutaneous insulin pen RxNorm: 7018563 40 Unit(s) SQ daily 01/17/20172016 Inactive Tresiba FlexTouch U-100 100 unit/mL (3 mL) subcutaneous insulin pen RxNorm: 3741315 40 Unit(s) SQ daily 01/17/20172016 Inactive Vitamin D2 50,000 unit capsule RxNorm: 996730 1 Capsule(s) PO daily 01/17/2017 10/26/2017 Inactive daily x 6 mths Cymbalta 30 mg capsule,delayed release RxNorm: 684493 1 Capsule(s) PO daily 01/16/2017 02/05/2017 Inactive take with 60mg=90mg Percocet 10 mg-325 mg tablet RxNorm: 4366557 1-2 Tablet(s) PO Q6 PRN 01/13/2017 01/27/2017 Inactive gabapentin 600 mg tablet RxNorm: 136223 TAKE ONE & ONE-HALF TABLETS BY MOUTH THREE TIMES DAILY 01/10/2017 05/09/2017 Inactive Percocet 10 mg-325 mg tablet RxNorm: 8481809 1-2 Tablet(s) PO Q6 PRN 12/21/2016 01/04/2017 Inactive Xanax 0.5 mg tablet RxNorm: 417457 Tablet(s) TAKE ONE TABLET BY MOUTH THREE TIMES DAILY 12/20/2016 02/15/2017 Inactive promethazine 25 mg tablet RxNorm: 234520 1 Tablet(s) PO Q6 PRN 12/16/2016 12/18/2016 Inactive prednisone 20 mg tablet RxNorm: 130426 2 Tablet(s) PO daily 12/14/2016 Inactive prednisone 20 mg tablet RxNorm: 830870 2 Tablet(s) PO daily 03/26/2017 Inactive Eliquis 5 mg tablet RxNorm: 7680039 1 Tablet(s) PO BID 201601/11/2017 Inactive doxycycline monohydrate 100 mg tablet RxNorm: 183118 1 Tablet(s) PO BID 12/13/2016 03/26/2017 Inactive give doxycyline hyclate cyclobenzaprine 10 mg tablet RxNorm: 128794 TAKE ONE TABLET BY MOUTH EVERY 8 HOURS NEEDED 12/09/2016 12/28/2016 Inactive Cymbalta 60 mg capsule,delayed release RxNorm: 405295 TAKE ONE CAPSULE BY MOUTH ONCE DAILY 11/30/2016 02/05/2017 Inactive promethazine 25 mg tablet RxNorm: 544375 2 Tablet(s) PO Q6 PRN 11/29/2016 12/16/2016 Inactive Percocet 10 mg-325 mg tablet RxNorm: 6677923 1-2 Tablet(s) PO Q6 PRN 11/24/2016 12/08/2016 Inactive mupirocin 2 % topical ointment RxNorm: 324720 1 Application TOP BID 11/11/2016 11/24/2016 Inactive Xanax 0.5 mg tablet RxNorm: 820299 Tablet(s) TAKE ONE TABLET BY MOUTH THREE TIMES DAILY 11/11/2016 12/19/2016 Inactive Belviq 10 mg tablet RxNorm: 0830410 1 Tablet(s) PO BID 201612/10/2016 Inactive Toprol XL 100 mg tablet,extended release RxNorm: 319172 TAKE ONE TABLET BY MOUTH TWICE DAILY 11/04/2016 04/02/2017 Inactive albuterol sulfate concentrate 2.5 mg/0.5 mL solution for nebulization RxNorm: 492046 USE ONE VIAL IN NEBULIZER EVERY 4 TO 6 HOURS NEEDED 11/03/2016 11/12/2016 Inactive Percocet 10 mg-325 mg tablet RxNorm: 2395068 1-2 Tablet(s) PO Q6 PRN 10/31/2016 11/23/2016 Inactive promethazine 25 mg tablet RxNorm: 145394 2 Tablet(s) PO Q6 PRN 10/28/2016 11/28/2016 Inactive nystatin 100,000 unit/mL oral suspension RxNorm: 108675 5 Milliliter(s) PO QID 10/28/2016 11/06/2016 Inactive Levemir FlexTouch 100 unit/mL (3 mL) subcutaneous insulin pen RxNorm: 654820 45 Unit(s) SQ BID 10/28/2016 01/16/2017 Inactive 45 q am and 40 q anita cyclobenzaprine 10 mg tablet RxNorm: 216555 TAKE ONE TABLET BY MOUTH EVERY 8 HOURS NEEDED 10/21/2016 11/09/2016 Inactive Lasix 40 mg tablet RxNorm: 478143 TAKE ONE TABLET BY MOUTH TWICE DAILY 10/18/2016 04/15/2017 Inactive Percocet 10 mg-325 mg tablet RxNorm: 1951414 1-2 Tablet(s) PO Q6 PRN 10/18/2016 10/30/2016 Inactive acyclovir 400 mg tablet RxNorm: 588833 2 Tablet(s) PO QID 10/1310/22/2016 Inactive Lasix 40 mg tablet RxNorm: 439329 TAKE ONE TABLET BY MOUTH TWICE DAILY 10/10/2016 10/17/2016 Inactive ropinirole 1 mg tablet RxNorm: 206742 TAKE ONE TABLET BY MOUTH AT BEDTIME 10/10/2016 04/07/2017 Inactive nystatin 100,000 unit/mL oral suspension RxNorm: 619598 5 Milliliter(s) PO QID x 10 days 09/30/2016 10/09/2016 Inactive nystatin 100,000 unit/mL oral suspension RxNorm: 130643 5 Milliliter(s) PO QID x 10 days 09/30/2016 10/09/2016 Inactive Swish et swallow Flonase Allergy Relief 50 mcg/actuation nasal spray, suspension RxNorm: 1054899 2 [place] NASAL daily 09/23/20162016 Inactive Percocet 10 mg-325 mg tablet RxNorm: 4774351 1-2 Tablet(s) PO Q6 PRN 09/23/2016 10/17/2016 Inactive doxycycline monohydrate 100 mg tablet RxNorm: 425218 1 Tablet(s) PO BID 09/23/2016 10/02/2016 Inactive give doxycyline hyclate Levemir FlexTouch 100 unit/mL (3 mL) subcutaneous insulin pen RxNorm: 745535 40 Unit(s) SQ BID 09/15/2016 10/27/2016 Inactive nystatin 100,000 unit/gram topical powder RxNorm: 777101 1 Application TOP QID 09/13/2016 09/22/2016 Inactive Voltaren 1 % topical gel RxNorm: 841232 4 Gram(s) TOP QID 09/1303/11/2017 Inactive Anusol-HC 25 mg rectal suppository RxNorm: 0521064 1 Suppository RTL HS 09/13/2016 09/26/2016 Inactive hydrocodone 10 mg-acetaminophen 325 mg tablet RxNorm: 720539 1-2 Tablet(s) PO Q6 as needed 09/13/2016 09/22/2016 Inactive Linzess 145 mcg capsule RxNorm: 7281439 1 Capsule(s) PO daily 09/01/2016 10/26/2017 Inactive Linzess 145 mcg capsule RxNorm: 0731937 1 Capsule(s) PO daily 09/01/2016 08/31/2016 Inactive Zofran 4 mg tablet RxNorm: 717712 TAKE ONE TABLET BY MOUTH EVERY 4 TO 6 HOURS NEEDED 08/29/2016 08/02/2017 Inactive Voltaren 1 % topical gel RxNorm: 295436 4 Gram(s) TOP QID 08/2309/12/2016 Inactive levothyroxine 88 mcg tablet RxNorm: 743113 TAKE ONE TABLET BY MOUTH ONCE DAILY 08/19/2016 12/16/2016 Inactive hydrocodone 10 mg-acetaminophen 325 mg tablet RxNorm: 212699 1 Tablet(s) PO Q6 as needed 08/17/2016 09/12/2016 Inactive nystatin 100,000 unit/gram topical powder RxNorm: 140617 1 Application TOP QID 08/16/2016 08/25/2016 Inactive Cymbalta 60 mg capsule,delayed release RxNorm: 364842 TAKE ONE CAPSULE BY MOUTH ONCE DAILY 08/10/2016 11/29/2016 Inactive Voltaren 1 % topical gel RxNorm: 660810 4 Gram(s) TOP QID 08/1008/22/2016 Inactive Voltaren 1 % topical gel RxNorm: 194577 4 Gram(s) TOP QID 08/1008/09/2016 Inactive promethazine 25 mg tablet RxNorm: 685978 TAKE ONE TABLET BY MOUTH EVERY 8 HOURS NEEDED FOR NAUSEA 07/29/20162017 Inactive nystatin 100,000 unit/gram topical powder RxNorm: 540040 1 Application TOP QID 07/26/2016 08/04/2016 Inactive Levemir FlexTouch 100 unit/mL (3 mL) subcutaneous insulin pen RxNorm: 765773 35 Unit(s) SQ BID 07/26/2016 08/24/2016 Inactive 35 q am and 30 q pm cyclobenzaprine 10 mg tablet RxNorm: 524886 TAKE ONE TABLET BY MOUTH EVERY 8 HOURS NEEDED 07/14/2016 08/22/2016 Inactive hydrocodone 10 mg-acetaminophen 325 mg tablet RxNorm: 806046 1 Tablet(s) PO Q6 as needed 07/11/2016 08/16/2016 Inactive nystatin 100,000 unit/mL oral suspension RxNorm: 699089 5 Milliliter(s) PO QID x 10 days 07/05/2016 07/04/2016 Inactive nystatin 100,000 unit/mL oral suspension RxNorm: 488514 5 Milliliter(s) PO QID x 10 days 07/05/2016 07/04/2016 Inactive nystatin 100,000 unit/mL oral suspension RxNorm: 081129 5 Milliliter(s) PO QID x 10 days 07/05/2016 07/14/2016 Inactive Swish et swallow doxycycline monohydrate 100 mg tablet RxNorm: 853002 1 Tablet(s) PO BID 06/24/2016 07/03/2016 Inactive give doxycyline hyclate promethazine 25 mg tablet RxNorm: 568991 TAKE ONE TABLET BY MOUTH EVERY 8 HOURS NEEDED FOR NAUSEA 06/01/20162016 Inactive pantoprazole 40 mg tablet,delayed release RxNorm: 506887 1 Tablet(s) PO BID 05/25/2016 08/02/2017 Inactive Zofran 4 mg tablet RxNorm: 115633 1 Tablet(s) PO Q12 PRN TAKE 1 TABLET BY MOUTH EVERY 4 TO 6 HOURS NEEDED 05/24/2016 Inactive hydrocodone 10 mg-acetaminophen 325 mg tablet RxNorm: 543279 1 Tablet(s) PO Q6 as needed 05/24/2016 07/10/2016 Inactive Levemir FlexTouch 100 unit/mL (3 mL) subcutaneous insulin pen RxNorm: 302256 25 Unit(s) SQ BID 05/24/2016 06/22/2016 Inactive Xanax 0.5 mg tablet RxNorm: 665945 Tablet(s) TAKE ONE TABLET BY MOUTH THREE TIMES DAILY 05/11/2016 07/09/2016 Inactive BD Insulin Pen Needle UF Short 31 gauge x 5/16" RxNorm: Misc 05/06/2016 05/05/2016 Inactive BD Insulin Pen Needle UF Short 31 gauge x 5/16" RxNorm: Misc 05/06/2016 06/04/2016 Inactive colestipol 1 gram tablet RxNorm: 4011066 Tablet(s) TAKE 1 TABLET BY MOUTH TWICE DAILY 04/22/2016 04/16/2017 Inactive Levemir FlexTouch 100 unit/mL (3 mL) subcutaneous insulin pen RxNorm: 983973 20 Unit(s) SQ BID 04/19/2016 05/18/2016 Inactive 25 UNITS Q AM AND 20 UNITS Q HS Cartia XT 180 mg capsule,extended release RxNorm: 068435 Capsule(s) BID 04/11/2016 04/05/2017 Inactive hydrocodone 10 mg-acetaminophen 325 mg tablet RxNorm: 371149 1 Tablet(s) PO Q6 as needed 04/11/2016 05/23/2016 Inactive Levemir FlexTouch 100 unit/mL (3 mL) subcutaneous insulin pen RxNorm: 124393 20 Unit(s) SQ BID 04/11/2016 04/18/2016 Inactive 20 UNITS Q AM AND 15 UNITS Q HS X 1 WEEK THEN 20 UNITS BID levothyroxine 88 mcg tablet RxNorm: 217804 1 Tablet(s) PO daily 03/21/2016 07/18/2016 Inactive Cymbalta 60 mg capsule,delayed release RxNorm: 671778 1 Capsule(s) PO daily 03/21/2016 07/18/2016 Inactive diltiazem ER (XR/XT) 240 mg capsule,extended release, controlled RxNorm: 087106 1 Capsule(s) PO BID 03/18/20162017 Inactive doxycycline hyclate 100 mg tablet RxNorm: 732218 1 Tablet(s) PO BID 03/11/2016 03/17/2016 Inactive Levemir FlexTouch 100 unit/mL (3 mL) subcutaneous insulin pen RxNorm: 530394 10 Unit(s) SQ BID 03/11/2016 04/09/2016 Inactive Lasix 40 mg tablet RxNorm: 477298 1 Tablet(s) PO BID 201509/06/2016 Inactive gabapentin 600 mg tablet RxNorm: 937892 Tablet(s) 1.5 TABLET(S) PO TID 03/04/2016 08/30/2016 Inactive Toujeo SoloStar 300 unit/mL (1.5 mL) subcutaneous insulin pen RxNorm: 9227612 10 Unit(s) SQ QHS 02/26/2016 03/26/2016 Inactive polymyxin B sulfate 10,000 unit-trimethoprim 1 mg/mL eye drops RxNorm: 544632 2 Drop(s) OPH TID 02/26/2016 03/03/2016 Inactive Lasix 20 mg tablet RxNorm: 696394 2 Tablet(s) PO BID TAKE 2 TABLETS BY MOUTH EVERY MORNING AND 2 TABLET BY MOUTH AT 3 PM 02/26/2016 03/10/2016 Inactive cyclobenzaprine 10 mg tablet RxNorm: 149026 Tablet(s) TABLET(S) TABLET(S) 1 TABLET (S) PO NEEDED TAKE 1 TABLET BY MOUTH EVERY 8 HOURS NEEDED 02/26/2016 07/13/2016 Inactive early fill- pt lost med Levemir FlexTouch 100 unit/mL (3 mL) subcutaneous insulin pen RxNorm: 074386 16 Unit(s) SQ QHS 02/18/2016 02/17/2016 Inactive Levemir FlexTouch 100 unit/mL (3 mL) subcutaneous insulin pen RxNorm: 914337 16 Unit(s) SQ QHS 02/18/2016 02/25/2016 Inactive Levemir 100 unit/mL subcutaneous solution RxNorm: 667733 16 Unit(s) SQ QHS 02/15/2016 02/17/2016 Inactive disp needles as well Effexor XR 37.5 mg capsule,extended release RxNorm: 228538 1 Capsule(s) QPM CAPSULE(S) PO TAKE 2 CAPSULES BY MOUTH EVERY MORNING AND 1 CAPSULE BY MOUTH EVERY NIGHT AT BEDTIME 02/15/20162015 Inactive clotrimazole 100 mg vaginal tablet RxNorm: 901999 1 Tablet(s) VAG QHS 02/05/2016 02/11/2016 Inactive clotrimazole 100 mg vaginal tablet RxNorm: 195184 1 Tablet(s) VAG QHS 02/05/2016 02/04/2016 Inactive hydrocodone 10 mg-acetaminophen 325 mg tablet RxNorm: 696376 1 Tablet(s) PO Q6 as needed 02/05/2016 04/10/2016 Inactive flecainide 100 mg tablet RxNorm: 181384 1 Tablet(s) PO BID No Stop Date Active potassium chloride ER 10 mEq tablet,extended release RxNorm: 121184 1 Tablet(s) PO daily 1 TABLET(S) PO QDAY PRN TAKE WITH LASIX 02/02/2016 01/26/2017 Inactive Brovana 15 mcg/2 mL solution for nebulization RxNorm: 650040 2 Milliliter(s) INH BID PRN 02/02/2016 03/20/2016 Inactive promethazine 25 mg tablet RxNorm: 759231 1 Tablet(s) PO Q8 as needed nausea 01/27/2016 03/20/2016 Inactive promethazine 25 mg tablet RxNorm: 494486 1 Tablet(s) PO Q6 PRN 01/27/2016 02/03/2016 Inactive nystatin 100,000 unit/mL oral suspension RxNorm: 372228 5 Unit(s) PO QID 01/12/2016 01/21/2016 Inactive promethazine 25 mg tablet RxNorm: 734131 1 Tablet(s) PO Q6 PRN 12/30/2015 01/06/2016 Inactive hydrocodone 7.5 mg-acetaminophen 325 mg tablet RxNorm: 734911 1 Tablet(s) PO q 6 hours prn for pain 12/10/2015 01/06/2016 Inactive Xanax 0.5 mg tablet RxNorm: 090076 TAKE ONE TABLET BY MOUTH THREE TIMES DAILY 12/02/2015 12/31/2015 Inactive Xanax 0.5 mg tablet RxNorm: 003340 Tablet(s) TAKE 1 TABLET BY MOUTH THREE TIMES DAILY 12/02/2015 11/30/2015 Inactive Anusol-HC 25 mg rectal suppository RxNorm: 1819262 1 Suppository RTL HS 11/27/2015 09/12/2016 Inactive ropinirole 1 mg tablet RxNorm: 050086 1 Tablet(s) PO QHS 201505/24/2016 Inactive nystatin 100,000 unit/mL oral suspension RxNorm: 834451 5 Unit(s) PO QID 11/20/2015 11/29/2015 Inactive albuterol sulfate concentrate 2.5 mg/0.5 mL solution for nebulization RxNorm: 877391 3 Milliliter(s) INH Q4-6H as needed 11/10/2015 11/02/2016 Inactive doxycycline monohydrate 100 mg tablet RxNorm: 497604 1 Tablet(s) PO BID 11/10/2015 11/19/2015 Inactive give doxycyline hyclate promethazine 25 mg tablet RxNorm: 913814 1 Tablet(s) PO Q6 PRN 11/05/2015 11/12/2015 Inactive Bactroban 2 % topical ointment RxNorm: 808439 1 APPLICATION TOP BID 10/27/2015 10/26/2017 Inactive Belviq 10 mg tablet RxNorm: 8348007 1 Tablet(s) PO BID 201511/25/2015 Inactive hydrocodone 7.5 mg-acetaminophen 325 mg tablet RxNorm: 429612 1 Tablet(s) PO q 6 hours prn for pain 10/20/2015 11/18/2015 Inactive Toprol XL 100 mg tablet,extended release RxNorm: 748727 Tablet(s) TAKE 1 TABLET BY MOUTH TWICE DAILY 10/16/20152016 Inactive Diflucan 150 mg tablet RxNorm: 521572 1 Tablet(s) PO every other day 10/14/2015 10/23/2015 Inactive Xanax 0.5 mg tablet RxNorm: 279145 Tablet(s) TAKE 1 TABLET BY MOUTH THREE TIMES DAILY 10/14/2015 05/10/2016 Inactive Toprol XL 100 mg tablet,extended release RxNorm: 496871 Tablet(s) TAKE 1 TABLET BY MOUTH TWICE DAILY 10/13/20152015 Inactive cyclobenzaprine 10 mg tablet RxNorm: 946060 Tablet(s) TABLET(S) TABLET(S) 1 TABLET (S) PO NEEDED TAKE 1 TABLET BY MOUTH EVERY 8 HOURS NEEDED 10/02/2015 10/14/2015 Inactive Zofran 4 mg tablet RxNorm: 783558 Tablet(s) 1 TABLET(S) PRN TAKE 1 TABLET BY MOUTH EVERY 4 TO 6 HOURS NEEDED 09/29/2015 12/27/2015 Inactive Synthroid 88 mcg tablet RxNorm: 580993 1 Tablet(s) PO daily 1 TABLET(S) PO DAILY 09/29/2015 10/28/2015 Inactive Patient requests 90 days supply promethazine 25 mg tablet RxNorm: 568380 1 Tablet(s) PO Q6 PRN 09/29/2015 11/04/2015 Inactive Lasix 20 mg tablet RxNorm: 072480 2 Tablet(s) PO BID 201501/18/2016 Inactive promethazine 25 mg tablet RxNorm: 454727 1 Tablet(s) PO Q6 PRN 09/22/2015 09/28/2015 Inactive hydrocodone 7.5 mg-acetaminophen 325 mg tablet RxNorm: 101884 1 Tablet(s) PO q 6 hours prn for pain 09/17/2015 10/16/2015 Inactive WelChol 625 mg tablet RxNorm: 531233 3 Tablet(s) PO BID 201503/26/2017 Inactive promethazine 25 mg tablet RxNorm: 071733 1 Tablet(s) PO Q8 as needed 09/07/2015 10/26/2017 Inactive Levemir 100 unit/mL subcutaneous solution RxNorm: 629001 16 Unit(s) SQ QHS 09/01/2015 02/14/2016 Inactive pantoprazole 40 mg tablet,delayed release RxNorm: 204697 1 Tablet(s) PO daily 09/01/2015 05/24/2016 Inactive Effexor XR 37.5 mg capsule,extended release RxNorm: 121482 Capsule(s) CAPSULE(S) PO TAKE 2 CAPSULES BY MOUTH EVERY MORNING AND 1 CAPSULE BY MOUTH EVERY NIGHT AT BEDTIME 08/27/2015 02/14/2016 Inactive promethazine 25 mg tablet RxNorm: 920003 1 Tablet(s) PO Q8 as needed 08/13/2015 09/06/2015 Inactive gabapentin 600 mg tablet RxNorm: 395727 Tablet(s) 1.5 TABLET(S) PO TID 08/13/2015 02/08/2016 Inactive hydrocodone 7.5 mg-acetaminophen 325 mg tablet RxNorm: 199774 1 Tablet(s) PO q 6 hours prn for pain 08/10/2015 09/08/2015 Inactive Zofran 4 mg tablet RxNorm: 759204 Tablet(s) 1 TABLET(S) PRN TAKE 1 TABLET BY MOUTH EVERY 4 TO 6 HOURS NEEDED 08/04/2015 08/03/2015 Inactive Zofran 4 mg tablet RxNorm: 868560 Tablet(s) 1 TABLET(S) PRN TAKE 1 TABLET BY MOUTH EVERY 4 TO 6 HOURS NEEDED 08/04/2015 09/28/2015 Inactive doxycycline monohydrate 100 mg tablet RxNorm: 189450 1 Tablet(s) PO BID 08/04/2015 08/10/2015 Inactive give doxycyline hyclate Diflucan 150 mg tablet RxNorm: 882622 1 Tablet(s) PO every other day 07/31/2015 08/09/2015 Inactive nystatin 100,000 unit/mL oral suspension RxNorm: 312842 5 Milliliter(s) PO QID 07/31/2015 07/30/2015 Inactive Diflucan 150 mg tablet RxNorm: 179879 1 Tablet(s) PO every other day 07/31/2015 07/30/2015 Inactive nystatin 100,000 unit/mL oral suspension RxNorm: 316766 5 Milliliter(s) PO QID 07/31/2015 08/09/2015 Inactive Ceftin 500 mg tablet RxNorm: 367002 1 Tablet(s) PO BID 201507/23/2015 Inactive Ceftin 500 mg tablet RxNorm: 768181 1 Tablet(s) PO BID Pre-medicate with benadryl 50 mg, pepcid 20 mg, and nathanael before each dose 07/24/2015 07/30/2015 Inactive cyclobenzaprine 10 mg tablet RxNorm: 853260 TABLET(S) TABLET(S) 1 TABLET(S) PO NEEDED TAKE 1 TABLET BY MOUTH EVERY 8 HOURS NEEDED 201502/25/2016 Inactive early fill- pt lost med Synthroid 88 mcg tablet RxNorm: 123660 1 TABLET(S) PO DAILY 07/201509/28/2015 Inactive Patient requests 90 days supply cyclobenzaprine 10 mg tablet RxNorm: 175997 Tablet(s) TABLET(S) TABLET(S) 1 TABLET (S) PO NEEDED TAKE 1 TABLET BY MOUTH EVERY 8 HOURS NEEDED 07/23/2015 10/01/2015 Inactive early fill- pt lost med Promethazine VC 6.25 mg-5 mg/5 mL syrup RxNorm: 3632691 1-2 Teaspoon(s) PO Q6 PRN as needed 07/22/2015 03/20/2016 Inactive Diflucan 150 mg tablet RxNorm: 768176 1 Tablet(s) PO daily 06/201507/22/2015 Inactive Lasix 20 mg tablet RxNorm: 483343 Tablet(s) TAKE 2 TABLETS BY MOUTH EVERY MORNING AND 2 TABLET BY MOUTH AT 3PM 07/16/2015 09/21/2015 Inactive Toprol XL 100 mg tablet,extended release RxNorm: 900049 Tablet(s) TAKE 1 TABLET BY MOUTH TWICE DAILY 07/16/20152015 Inactive Cartia XT 180 mg capsule,extended release RxNorm: 887117 Capsule(s) 1 CAPSULE(S) PO DAILY TAKE 1 CAPSULE BY MOUTH AT BEDTIME ..TAKE THIS IN ADDITION TO 240 MG IN THE MORNING 07/14/2015 04/10/2016 Inactive diltiazem ER (XR/XT) 240 mg capsule,extended release, controlled RxNorm: 104629 Capsule(s) TAKE 1 CAPSULE BY MOUTH DAILY 07/14/2015 03/17/2016 Inactive gabapentin 600 mg tablet RxNorm: 806300 Tablet(s) 1.5 TABLET(S) PO TID 07/06/2015 08/12/2015 Inactive Phenergan 25 mg tablet RxNorm: 607681 1 Tablet(s) PO Q8 as needed nausea 06/29/2015 01/25/2016 Inactive doxycycline monohydrate 100 mg tablet RxNorm: 376016 1 Tablet(s) PO BID 06/29/2015 06/28/2015 Inactive doxycycline monohydrate 100 mg tablet RxNorm: 912624 1 Tablet(s) PO BID 06/29/2015 07/08/2015 Inactive give doxycyline hyclate doxycycline monohydrate 100 mg tablet RxNorm: 455786 1 Tablet(s) PO BID 06/29/2015 06/28/2015 Inactive Lasix 20 mg tablet RxNorm: 356583 Tablet(s) TAKE 2 TABLETS BY MOUTH EVERY MORNING AND 2 TABLET BY MOUTH AT 3PM 06/29/2015 07/15/2015 Inactive Lasix 20 mg tablet RxNorm: Tablet(s) TAKE 2 TABLETS BY MOUTH EVERY MORNING AND 1 TABLET BY MOUTH AT 3PM 06/26/2015 06/28/2015 Inactive Xanax 0.5 mg tablet RxNorm: 628289 Tablet(s) TAKE 1 TABLET BY MOUTH THREE TIMES DAILY 06/26/2015 07/25/2015 Inactive Kenalog 40 mg/mL suspension for injection RxNorm: 1227697 Milliliter(s) Inj 06/26/2015 06/26/2015 Inactive hydrocodone 7.5 mg-acetaminophen 325 mg tablet RxNorm: 801804 1 Tablet(s) PO q 6 hours prn for pain 06/26/2015 07/25/2015 Inactive Dexilant 60 mg capsule, delayed release RxNorm: 456923 1 Capsule(s) PO daily 06/26/2015 08/24/2015 Inactive colestipol 1 gram tablet RxNorm: 6818289 1 TABLET(S) PO BID TAKE 1 TABLET BY MOUTH TWICE DAILY 06/16/2015 03/11/2016 Inactive hydrocodone 7.5 mg-acetaminophen 325 mg tablet RxNorm: 194177 1 Tablet(s) PO q 6 hours prn for pain 06/11/2015 06/25/2015 Inactive cyclobenzaprine 10 mg tablet RxNorm: 133916 TABLET(S) TABLET(S) 1 TABLET(S) PO NEEDED TAKE 1 TABLET BY MOUTH EVERY 8 HOURS NEEDED 201507/22/2015 Inactive early fill- pt lost med Zofran 4 mg tablet RxNorm: 554355 1 TABLET(S) PRN TAKE 1 TABLET BY MOUTH EVERY 4 TO 6 HOURS NEEDED 05/25/20152015 Inactive Zofran 4 mg tablet RxNorm: 494300 1 Tablet(s) PRN TAKE 1 TABLET BY MOUTH EVERY 4 TO 6 HOURS NEEDED 05/19/20152015 Inactive gabapentin 600 mg tablet RxNorm: 422597 1.5 TABLET(S) PO TID 07/05/2015 Inactive Lasix 20 mg tablet RxNorm: 707221 TAKE 2 TABLETS BY MOUTH EVERY MORNING AND 1 TABLET BY MOUTH AT 3PM 05/07/20152015 Inactive Effexor XR 37.5 mg capsule,extended release RxNorm: 479450 Capsule(s) CAPSULE(S) PO TAKE 2 CAPSULES BY MOUTH EVERY MORNING AND 1 CAPSULE BY MOUTH EVERY NIGHT AT BEDTIME 04/15/2015 08/26/2015 Inactive Diflucan 150 mg tablet RxNorm: 076198 1 Tablet(s) PO daily 04/18/2015 Inactive Victoza 3-Babak 0.6 mg/0.1 mL (18 mg/3 mL) subcutaneous pen injector RxNorm: 560965 1.8 Milligram(s) SQ daily 04/14/201508/10 Inactive Levaquin 500 mg tablet RxNorm: 138656 1 Tablet(s) PO daily 04/20/2015 Inactive potassium chloride ER 10 mEq tablet,extended release RxNorm: 322636 1 TABLET(S) PO QDAY PRN TAKE WITH LASIX 04/13/201504/2016 Inactive Effexor XR 37.5 mg capsule,extended release RxNorm: 641538 CAPSULE(S) PO TAKE 2 CAPSULES BY MOUTH EVERY MORNING AND 1 CAPSULE BY MOUTH EVERY NIGHT AT BEDTIME 04/10/2015 04/14/2015 Inactive pantoprazole 40 mg tablet,delayed release RxNorm: 365752 1 Tablet(s) PO daily 03/31/2015 08/31/2015 Inactive Dexilant 60 mg capsule, delayed release RxNorm: 587864 1 Capsule(s) PO daily 03/31/2015 03/31/2015 Inactive pantoprazole 40 mg tablet,delayed release RxNorm: 678717 1 Tablet(s) PO daily 03/31/2015 03/30/2015 Inactive Dexilant 60 mg capsule, delayed release RxNorm: 974476 1 Capsule(s) PO daily 03/31/2015 05/29/2015 Inactive Dexilant 60 mg capsule, delayed release RxNorm: 122863 1 Capsule(s) PO daily 03/30/2015 03/30/2015 Inactive hydrocodone 7.5 mg-acetaminophen 325 mg tablet RxNorm: 157273 1 Tablet(s) PO q 6 hours prn for pain 03/30/2015 04/28/2015 Inactive cyclobenzaprine 10 mg tablet RxNorm: 100694 TABLET(S) TABLET(S) 1 TABLET(S) PO NEEDED TAKE 1 TABLET BY MOUTH EVERY 8 HOURS NEEDED 201405/31/2015 Inactive early fill- pt lost med Xanax 0.5 mg tablet RxNorm: 792738 Tablet(s) TAKE 1 TABLET BY MOUTH THREE TIMES DAILY 03/25/2015 04/23/2015 Inactive Lasix 20 mg tablet RxNorm: 139910 TAKE 2 TABLETS BY MOUTH EVERY MORNING AND 1 TABLET BY MOUTH AT 3PM 03/23/20152014 Inactive Levemir Flexpen 100 unit/mL (3 mL) solution subcutaneous insulin pen RxNorm: 914042 15 Unit(s) SQ BID 03/20/20152015 Inactive give quanity sufficient for 1 month- Dexilant 60 mg capsule, delayed release RxNorm: 974544 1 Capsule(s) PO daily 03/19/2015 03/29/2015 Inactive Dexilant 60 mg capsule, delayed release RxNorm: 762642 1 Capsule(s) PO daily 03/19/2015 03/18/2015 Inactive Diflucan 150 mg tablet RxNorm: 624535 1 Tablet(s) PO every other day x7 doses 03/19/2015 03/21/2015 Inactive hydrocodone 7.5 mg-acetaminophen 325 mg tablet RxNorm: 949151 1 Tablet(s) PO q 6 hours prn for pain 02/27/2015 03/28/2015 Inactive Lasix 20 mg tablet RxNorm: 936390 TAKE 2 TABLETS BY MOUTH EVERY MORNING AND 1 TABLET BY MOUTH AT 3PM 02/27/20152014 Inactive omeprazole 20 mg capsule,delayed release RxNorm: 466729 1 CAPSULE(S) PO DAILY TAKE 1 CAPSULE BY MOUTH TWICE DAILY 02/26/2015 10/26/2017 Inactive Zofran 4 mg tablet RxNorm: 112557 1 Tablet(s) PRN TAKE 1 TABLET BY MOUTH EVERY 4 TO 6 HOURS NEEDED 02/24/20152014 Inactive fluconazole 150 mg tablet RxNorm: 951467 1 Tablet(s) PO every other day x 5 doses 02/19/2015 02/28/2015 Inactive cyclobenzaprine 10 mg tablet RxNorm: 184635 TABLET(S) TABLET(S) 1 TABLET(S) PO NEEDED TAKE 1 TABLET BY MOUTH EVERY 8 HOURS NEEDED 201403/29/2015 Inactive early fill- pt lost med hydrocodone 7.5 mg-acetaminophen 325 mg tablet RxNorm: 841677 1 Tablet(s) PO q 6 hours prn for pain 01/29/2015 02/26/2015 Inactive Xanax 0.5 mg tablet RxNorm: 829486 Tablet(s) TAKE 1 TABLET BY MOUTH THREE TIMES DAILY 01/29/2015 02/27/2015 Inactive Bactroban 2 % topical ointment RxNorm: 025454 1 APPLICATION TOP BID 01/26/2015 10/26/2015 Inactive Bactroban 2 % topical ointment RxNorm: 408370 1 Application TOP BID 01/15/2015 01/25/2015 Inactive doxycycline hyclate 100 mg tablet RxNorm: 935662 1 Tablet(s) PO BID 01/15/2015 01/21/2015 Inactive nystatin 100,000 unit/mL oral suspension RxNorm: 206238 5 Milliliter(s) PO QID 01/15/2015 01/24/2015 Inactive Cartia XT 180 mg capsule,extended release RxNorm: 596466 1 CAPSULE(S) PO DAILY TAKE 1 CAPSULE BY MOUTH AT BEDTIME ..TAKE THIS IN ADDITION TO 240 MG IN THE MORNING 01/13/2015 07/13/2015 Inactive Lasix 20 mg tablet RxNorm: TAKE 2 TABLETS BY MOUTH EVERY MORNING AND 1 TABLET BY MOUTH AT 3PM 01/08/20152014 Inactive fluconazole 150 mg tablet RxNorm: 042819 1 Tablet(s) PO daily 01/01/2015 01/05/2015 Inactive hydrocodone 7.5 mg-acetaminophen 325 mg tablet RxNorm: 061187 1 Tablet(s) PO q 6 hours prn for pain 01/01/2015 01/28/2015 Inactive colestipol 1 gram tablet RxNorm: 2720824 1 TABLET(S) PO BID TAKE 1 TABLET BY MOUTH TWICE DAILY 12/18/2014 06/15/2015 Inactive colestipol 1 gram tablet RxNorm: 0737660 1 TABLET(S) PO BID TAKE 1 TABLET BY MOUTH TWICE DAILY 12/18/2014 09/13/2015 Inactive Lasix 20 mg tablet RxNorm: TAKE 2 TABLETS BY MOUTH EVERY MORNING AND 2 TABLETS AND AT 3PM 12/11/2014 12/25/2014 Inactive cyclobenzaprine 10 mg tablet RxNorm: 892744 TABLET(S) 1 TABLET(S) PO NEEDED TAKE 1 TABLET BY MOUTH EVERY 8 HOURS NEEDED 12/11/2014 05/31/2017 Inactive Lasix 20 mg tablet RxNorm: 533924 Tablet(s) TABLET(S) PO TAKE 2 TABLETS BY MOUTH EVERY MORNING AND 1 TABLET BY MOUTH AT 3 PM 12/10/2014 12/10/2014 Inactive fill early- pt lost them cyclobenzaprine 10 mg tablet RxNorm: 283456 Tablet(s) TABLET(S) 1 TABLET(S) PO NEEDED TAKE 1 TABLET BY MOUTH EVERY 8 HOURS NEEDED 201402/15/2015 Inactive early fill- pt lost med cyclobenzaprine 10 mg tablet RxNorm: 397124 TABLET(S) 1 TABLET(S) PO NEEDED TAKE 1 TABLET BY MOUTH EVERY 8 HOURS NEEDED 12/02/2014 12/09/2014 Inactive hydrocodone 7.5 mg-acetaminophen 325 mg tablet RxNorm: 959500 1 Tablet(s) PO q 6 hours prn for pain 12/01/2014 12/30/2014 Inactive diltiazem ER (XR/XT) 240 mg capsule,extended release, controlled RxNorm: 669542 TAKE 1 CAPSULE BY MOUTH DAILY 11/30/2014 07/13/2015 Inactive Xanax 0.5 mg tablet RxNorm: 370344 1 Tablet(s) PO TID PRN as needed 11/19/2014 11/19/2014 Inactive (Appended: Controlled substance eRx refill - RxReferenceNumber: [id number]|1|0|1) Xanax 0.5 mg tablet RxNorm: 910711 TAKE 1 TABLET BY MOUTH THREE TIMES DAILY 11/19/2014 12/18/2014 Inactive Toprol XL 100 mg tablet,extended release RxNorm: 185881 TAKE 1 TABLET BY MOUTH TWICE DAILY 11/06/2014 07/15/2015 Inactive Diflucan 150 mg tablet RxNorm: 239713 1 Tablet(s) PO every other day x7 doses 11/05/2014 11/07/2014 Inactive omeprazole 20 mg capsule,delayed release RxNorm: 404912 1 Capsule(s) PO daily TAKE 1 CAPSULE BY MOUTH TWICE DAILY 11/04/2014 02/01/2015 Inactive cyclobenzaprine 10 mg tablet RxNorm: 841159 TABLET(S) 1 TABLET(S) PO NEEDED TAKE 1 TABLET BY MOUTH EVERY 8 HOURS NEEDED 10/28/2014 12/01/2014 Inactive hydrocodone 7.5 mg-acetaminophen 325 mg tablet RxNorm: 355525 1 Tablet(s) PO q 6 hours prn for pain 10/21/2014 11/19/2014 Inactive gabapentin 600 mg tablet RxNorm: 324910 1.5 Tablet(s) PO TID 04/30/2015 Inactive Xanax 0.5 mg tablet RxNorm: 655951 Tablet(s) TAKE 1 TABLET BY MOUTH THREE TIMES DAILY 10/01/2014 10/30/2014 Inactive (Response to an electronic controlled substance refill request - RxReferenceNumber: [id number]|1|0|1) Xanax 0.25 mg tablet RxNorm: 601750 1 Tablet(s) PO Q8 PRN as needed 09/30/2014 09/30/2014 Inactive Lasix 20 mg tablet RxNorm: 831372 Tablet(s) TAKE 2 TABLETS BY MOUTH EVERY MORNING AND 2 TABLETS BY MOUTH AT 3 PM 09/30/2014 11/12/2014 Inactive Victoza 3-Babak 0.6 mg/0.1 mL (18 mg/3 mL) subcutaneous pen injector RxNorm: 333949 1.2 MILLIGRAM(S) SQ DAILY 0.6 X 2 WEEKS THEN INCREASE TO 1.2MG DAILY 09/26/2014 04/13/2015 Inactive Xanax 0.5 mg tablet RxNorm: 313929 TAKE 1 TABLET BY MOUTH THREE TIMES DAILY 09/25/2014 09/30/2014 Inactive (Response to an electronic controlled substance refill request - RxReferenceNumber: [id number]|1|0|1) Zofran 4 mg tablet RxNorm: 458683 TAKE 1 TABLET BY MOUTH EVERY 4 TO 6 HOURS NEEDED 09/25/2014 09/27/2014 Inactive hydrocodone 7.5 mg-acetaminophen 325 mg tablet RxNorm: 451675 1 Tablet(s) PO q 6 hours prn for pain 09/19/2014 10/18/2014 Inactive cyclobenzaprine 10 mg tablet RxNorm: 204097 TABLET(S) 1 TABLET(S) PO NEEDED TAKE 1 TABLET BY MOUTH EVERY 8 HOURS NEEDED 09/15/2014 10/27/2014 Inactive Lasix 20 mg tablet RxNorm: 719031 Tablet(s) TAKE 2 TABLETS BY MOUTH EVERY MORNING AND 2 TABLETS BY MOUTH AT 3 PM 09/08/2014 09/29/2014 Inactive Lasix 20 mg tablet RxNorm: 331113 TAKE 2 TABLETS BY MOUTH EVERY MORNING AND 2 TABLETS BY MOUTH AT 3 PM 08/21/20142014 Inactive hydrocodone 7.5 mg-acetaminophen 325 mg tablet RxNorm: 253889 1 Tablet(s) PO q 6 hours prn for pain 08/21/2014 09/18/2014 Inactive Diflucan 150 mg tablet RxNorm: 937482 1 Tablet(s) PO every other day 08/15/2014 08/17/2014 Inactive cyclobenzaprine 10 mg tablet RxNorm: 278462 Tablet(s) 1 TABLET(S) PO NEEDED TAKE 1 TABLET BY MOUTH EVERY 8 HOURS NEEDED 08/12/2014 09/14/2014 Inactive Zofran 4 mg tablet RxNorm: 351275 TAKE 1 TABLET BY MOUTH EVERY 4 TO 6 HOURS NEEDED 07/31/2014 08/02/2014 Inactive Effexor XR 37.5 mg capsule,extended release RxNorm: 327880 CAPSULE(S) PO TAKE 2 CAPSULES BY MOUTH EVERY MORNING AND 1 CAPSULE BY MOUTH EVERY NIGHT AT BEDTIME 07/28/2014 02/15/2016 Inactive Lasix 20 mg tablet RxNorm: TAKE 2 TABLETS BY MOUTH EVERY MORNING AND 2 TABLETS BY MOUTH AT 3 PM 07/22/20142014 Inactive Diflucan 150 mg tablet RxNorm: 707318 1 Tablet(s) PO daily 06/201407/23/2014 Inactive hydrocodone 7.5 mg-acetaminophen 325 mg tablet RxNorm: 809432 1 Tablet(s) PO q 6 hours prn for pain 07/14/2014 08/12/2014 Inactive Synthroid 88 mcg tablet RxNorm: 378191 1 TABLET(S) PO DAILY 10/11/2014 Inactive Effexor XR 37.5 mg capsule,extended release RxNorm: 028916 Capsule(s) PO TAKE 2 CAPSULES BY MOUTH EVERY MORNING AND 1 CAPSULE BY MOUTH EVERY NIGHT AT BEDTIME 07/07/2014 04/09/2015 Inactive Effexor XR 37.5 mg capsule,extended release RxNorm: 828975 TAKE 2 CAPSULES BY MOUTH EVERY MORNING AND 1 CAPSULE BY MOUTH EVERY NIGHT AT BEDTIME 07/07/2014 01/02/2015 Inactive WelChol 625 mg tablet RxNorm: 355276 3 TABLET(S) PO BID 201410/04/2014 Inactive WelChol 625 mg tablet RxNorm: 680915 3 Tablet(s) PO BID 201402/01/2015 Inactive Zofran 4 mg tablet RxNorm: 591540 TAKE 1 TABLET BY MOUTH EVERY 4 TO 6 HOURS NEEDED 07/03/2014 07/05/2014 Inactive Lasix 20 mg tablet RxNorm: TAKE 2 TABLETS BY MOUTH EVERY MORNING AND 2 TABLETS BY MOUTH AT 3 PM 06/26/20142014 Inactive Diflucan 150 mg tablet RxNorm: 492621 1 Tablet(s) PO daily 06/19/2014 Inactive Promethazine VC 6.25 mg-5 mg/5 mL syrup RxNorm: 5016533 1-2 Teaspoon(s) PO Q6 PRN as needed 06/12/2014 07/21/2015 Inactive hydrocodone 7.5 mg-acetaminophen 325 mg tablet RxNorm: 558946 1 Tablet(s) PO q 6 hours prn for pain 06/03/2014 07/02/2014 Inactive Levaquin 500 mg tablet RxNorm: 304355 1 Tablet(s) PO daily 01/201506/05/2014 Inactive cyclobenzaprine 10 mg tablet RxNorm: 577235 Tablet(s) 1 TABLET(S) PO NEEDED TAKE 1 TABLET BY MOUTH EVERY 8 HOURS NEEDED 05/26/2014 No Stop Date Active cyclobenzaprine 10 mg tablet RxNorm: 285462 1 TABLET(S) PO NEEDED TAKE 1 TABLET BY MOUTH EVERY 8 HOURS NEEDED 05/26/2014 08/11/2014 Inactive Lasix 20 mg tablet RxNorm: 270211 Tablet(s) TABLET(S) PO TAKE 2 TABLETS BY MOUTH EVERY MORNING AND 2 TABLET BY MOUTH AT 3 PM 05/12/2014 06/25/2014 Inactive Combivent Respimat 20 mcg-100 mcg/actuation solution for inhalation RxNorm: 8216702 INHALE 1 PUFF BY MOUTH FOUR TIMES DAILY 05/12/2014 11/07/2014 Inactive fluconazole 150 mg tablet RxNorm: 699075 1 Tablet(s) PO UD 05/12/2014 Inactive 1 tab every other day x 5 doses Activella 0.5 mg-0.1 mg tablet RxNorm: 1310348 1 TABLET(S) PO DAILY TAKE 1 TABLET BY MOUTH DAILY FOR MENOPAUSAL SYMPTOM 05/02/2014 09/21/2015 Inactive hydrocodone 7.5 mg-acetaminophen 300 mg tablet RxNorm: 427537 Tablet(s) PO TAKE 1 TABLET BY MOUTH EVERY 6 HOURS NEEDED FOR PAIN 04/21/2014 06/03/2014 Inactive ( Appended: Controlled substance eRx refill - RxReferenceNumber: [id number]|1|0|1 ) Levaquin 500 mg tablet RxNorm: 636991 1 Tablet(s) PO daily 04/21/2014 Inactive Diflucan 150 mg tablet RxNorm: 647056 1 Tablet(s) PO every other day x 4 doses 04/10/2014 06/16/2014 Inactive Lasix 20 mg tablet RxNorm: 703837 TAKE 2 TABLETS BY MOUTH EVERY MORNING AND 1 TABLET BY MOUTH AT 3 PM 04/10/20142013 Inactive potassium chloride ER 10 mEq tablet,extended release RxNorm: 112410 1 TABLET(S) PO QDAY PRN TAKE WITH LASIX 04/09/2014 Inactive Levaquin 250 mg tablet RxNorm: 907413 1 Tablet(s) PO daily 08/201304/07/2014 Inactive 2 tabs today then 1 tab daily until gone atorvastatin 40 mg tablet RxNorm: 336064 1 Tablet(s) daily 1 TABLET(S) PO DAILY 03/25/2014 04/10/2016 Inactive TAKE 1 TABLET BY MOUTH DAILY (THIS IS AN INCREASE IN DOSAGE) Zofran 4 mg tablet RxNorm: 277646 1 Tablet(s) PO Q4-6H 201307/02/2014 Inactive Xanax 0.5 mg tablet RxNorm: 742762 TAKE 1 TABLET BY MOUTH THREE TIMES DAILY NEEDED 03/19/2014 04/17/2014 Inactive (Response to an electronic controlled substance refill request - RxReferenceNumber: [id number]|1|0|1) hydrocodone 7.5 mg-acetaminophen 300 mg tablet RxNorm: 658509 Tablet(s) PO TAKE 1 TABLET BY MOUTH EVERY 6 HOURS NEEDED FOR PAIN 03/19/2014 04/20/2014 Inactive ( Appended: Controlled substance eRx refill - RxReferenceNumber: [id number]|1|0|1 ) atorvastatin 40 mg tablet RxNorm: 728103 1 TABLET(S) PO DAILY 03/10/2014 03/24/2014 Inactive TAKE 1 TABLET BY MOUTH DAILY (THIS IS AN INCREASE IN DOSAGE) WelChol 625 mg tablet RxNorm: 270605 3 Tablet(s) PO BID 201303/06/2014 Inactive WelChol 625 mg tablet RxNorm: 648626 3 Tablet(s) PO BID 201307/04/2014 Inactive Lasix 20 mg tablet RxNorm: 782883 Tablet(s) TABLET(S) PO TAKE 2 TABLETS BY MOUTH EVERY MORNING AND 2 TABLET BY MOUTH AT 3 PM 03/03/2014 05/11/2014 Inactive Lasix 20 mg tablet RxNorm: 036126 TABLET(S) PO TAKE 2 TABLETS BY MOUTH EVERY MORNING AND 1 TABLET BY MOUTH AT 3 PM 02/20/2014 03/02/2014 Inactive gabapentin 600 mg tablet RxNorm: 136445 1.5 Tablet(s) PO TID 09/16/2014 Inactive Synthroid 88 mcg tablet RxNorm: 655500 1 TABLET(S) PO DAILY 05/18/2014 Inactive cyclobenzaprine 10 mg tablet RxNorm: 532928 1 TABLET(S) PO NEEDED TAKE 1 TABLET BY MOUTH EVERY 8 HOURS NEEDED 02/18/2014 05/25/2014 Inactive doxycycline hyclate 100 mg tablet RxNorm: 546620 1 Tablet(s) PO BID 02/13/2014 02/22/2014 Inactive Bactroban 2 % topical ointment RxNorm: 998544 1 Application TOP BID 02/13/2014 03/12/2014 Inactive Victoza 3-Babak 0.6 mg/0.1 mL (18 mg/3 mL) subcutaneous pen injector RxNorm: 914852 1.2 MILLIGRAM(S) SQ DAILY 0.6 X 2 WEEKS THEN INCREASE TO 1.2MG DAILY 02/10/2014 05/10/2014 Inactive albuterol sulfate 1.25 mg/3 mL solution for nebulization RxNorm: 471979 3 MILLILITER(S) INH TID 02/07/20142014 Inactive 1 box Victoza 3-Babak 0.6 mg/0.1 mL (18 mg/3 mL) subcutaneous pen injector RxNorm: 266188 1.8 Milligram(s) SQ daily 0.6 x 2 weeks then increase to 1.2mg daily 01/27/2014 05/26/2014 Inactive Levemir Flexpen 100 unit/mL (3 mL) solution subcutaneous insulin pen RxNorm: 514040 5units sq at hs, increase by 3 Unit(s) SQ at hs every 3days, goal FSBS 170 or less, do not increase above 20units, call doctor with report 01/27/2014 05/26/2014 Inactive hydrocodone 7.5 mg-acetaminophen 300 mg tablet RxNorm: 096107 Tablet(s) PO TAKE 1 TABLET BY MOUTH EVERY 6 HOURS NEEDED FOR PAIN 01/24/2014 03/18/2014 Inactive ( Appended: Controlled substance eRx refill - RxReferenceNumber: [id number]|1|0|1 ) Xanax 0.5 mg tablet RxNorm: 244931 1 Tablet(s) PO TID PRN as needed 01/24/2014 09/21/2014 Inactive (Appended: Controlled substance eRx refill - RxReferenceNumber: [id number]|1|0|1) Xanax 0.5 mg tablet RxNorm: 945891 TAKE 1 TABLET BY MOUTH THREE TIMES DAILY NEEDED 01/23/2014 02/21/2014 Inactive (Response to an electronic controlled substance refill request - RxReferenceNumber: [id number]|1|0|1) hydrocodone 5 mg-acetaminophen 325 mg tablet RxNorm: 971866 TAKE 1 TABLET BY MOUTH EVERY 6 HOURS NEEDED FOR PAIN 01/21/2014 02/19/2014 Inactive (Response to an electronic controlled substance refill request - RxReferenceNumber: [id number]| [id number]|1|0|1) Lasix 20 mg tablet RxNorm: 457098 TAKE 2 TABLETS BY MOUTH EVERY MORNING AND 1 TABLET BY MOUTH AT 3 PM 01/17/20142013 Inactive cyclobenzaprine 10 mg tablet RxNorm: 285573 1 Tablet(s) PO as needed TAKE 1 TABLET BY MOUTH EVERY 8 HOURS NEEDED 01/13/2014 02/17/2014 Inactive Anusol-HC 25 mg suppository RxNorm: 8888350 1 SUPPOSITORY RTL PRN ONE PER RECTUM NEEDED, UP TO TWICE DAILY FOR HEMORRHOID, NO MORE THAN 7 DAYS IN A ROW 01/10/2014 02/06/2014 Inactive Activella 0.5 mg-0.1 mg tablet RxNorm: 5560765 1 Tablet(s) PO daily TAKE 1 TABLET BY MOUTH DAILY FOR MENOPAUSAL SYMPTOM 01/08/2014 05/01/2014 Inactive gabapentin 600 mg tablet RxNorm: 543129 1.5 Tablet(s) PO TID 02/18/2014 Inactive gabapentin 600 mg tablet RxNorm: 778723 1.5 Tablet(s) PO TID 01/01/2014 Inactive hydrocodone 7.5 mg-acetaminophen 300 mg tablet RxNorm: 909686 Tablet(s) PO TAKE 1 TABLET BY MOUTH EVERY 6 HOURS NEEDED FOR PAIN 12/12/2013 01/23/2014 Inactive ( Appended: Controlled substance [id number]|1|0|1 ) Levaquin 250 mg tablet RxNorm: 308647 1 Tablet(s) PO daily 12/18/2013 Inactive 2 tabs today then 1 tab daily until gone Diflucan 150 mg tablet RxNorm: 007452 1 Tablet(s) PO daily 12/16/2013 Inactive do not stat until levaquin is completed Cartia XT 180 mg capsule,extended release RxNorm: 527124 1 CAPSULE(S) PO DAILY TAKE 1 CAPSULE BY MOUTH AT BEDTIME ..TAKE THIS IN ADDITION TO 240 MG IN THE MORNING 12/12/2013 12/06/2014 Inactive diltiazem ER (XR/XT) 240 mg capsule,extended release, controlled RxNorm: 664445 1 Capsule(s) PO daily TAKE 1 CAPSULE BY MOUTH EVERY DAY 11/28/2014 Inactive Effexor XR 37.5 mg capsule,extended release RxNorm: 680543 Capsule(s) PO TAKE 2 CAPSULES BY MOUTH EVERY MORNING AND 1 CAPSULE BY MOUTH EVERY NIGHT AT BEDTIME 12/04/2013 07/06/2014 Inactive Lasix 20 mg tablet RxNorm: 006452 TABLET(S) PO TAKE 2 TABLETS BY MOUTH EVERY MORNING AND 1 TABLET BY MOUTH AT 3 PM 12/04/2013 12/09/2014 Inactive Voltaren 1 % topical gel RxNorm: 470838 4 Gram(s) TOP QID 11/2703/26/2014 Inactive Cartia XT 180 mg capsule,extended release RxNorm: 339161 1 Capsule(s) PO daily TAKE 1 CAPSULE BY MOUTH AT BEDTIME ..TAKE THIS IN ADDITION TO 240 MG IN THE MORNING 11/27/2013 01/12/2015 Inactive Lasix 20 mg tablet RxNorm: TABLET(S) PO TAKE 2 TABLETS BY MOUTH EVERY MORNING AND 1 TABLET BY MOUTH AT 3 PM 11/26/2013 02/19/2014 Inactive colestipol 1 gram tablet RxNorm: 1378376 1 Tablet(s) PO BID TAKE 1 TABLET BY MOUTH TWICE DAILY 11/26/2013 11/20/2014 Inactive cyclobenzaprine 10 mg tablet RxNorm: 330944 Tablet(s) PO TAKE 1 TABLET BY MOUTH EVERY 8 HOURS NEEDED 11/21/20132013 Inactive Diflucan 150 mg tablet RxNorm: 393996 1 Tablet(s) PO daily TAKE 1 TABLET BY MOUTH EVERY OTHER DAY FOR 8 DOSES 11/14/201306/2013 Inactive peak flow meter-inh assist dev kit RxNorm: 1 dose Miscellaneous PRN 11/14/2013 10/27/2017 Inactive Effexor XR 37.5 mg capsule,extended release RxNorm: 274100 Capsule(s) PO TAKE 2 CAPSULES BY MOUTH EVERY MORNING AND 1 CAPSULE BY MOUTH EVERY NIGHT AT BEDTIME 11/04/2013 12/03/2013 Inactive Anusol-HC 25 mg suppository RxNorm: 3599563 1 Suppository RTL PRN one per rectum as needed, up to twice daily for hemorrhoid, no more than 7 days in a row 10/23/2013 10/22/2013 Inactive Anusol-HC 25 mg suppository RxNorm: 1404605 1 Suppository RTL PRN one per rectum as needed, up to twice daily for hemorrhoid, no more than 7 days in a row 10/23/2013 01/09/2014 Inactive Activella 0.5 mg-0.1 mg tablet RxNorm: 8864871 Tablet(s) PO TAKE 1 TABLET BY MOUTH DAILY FOR MENOPAUSAL SYMPTOM 10/21/2013 01/07/2014 Inactive cyclobenzaprine 10 mg tablet RxNorm: 736304 Tablet(s) PO TAKE 1 TABLET BY MOUTH EVERY 8 HOURS NEEDED 10/21/20132013 Inactive Lasix 20 mg tablet RxNorm: 757871 Tablet(s) PO TAKE 2 TABLETS BY MOUTH EVERY MORNING AND 1 TABLET BY MOUTH AT 3 PM 10/17/2013 02/25/2016 Inactive Bactroban 2 % topical ointment RxNorm: 067311 1 Application TOP BID 10/10/2013 11/06/2013 Inactive Zofran 4 mg tablet RxNorm: 259681 1 Tablet(s) PO Q4-6H 201303/20/2014 Inactive Bactroban 2 % topical ointment RxNorm: 103685 1 Application TOP BID 09/27/2013 10/09/2013 Inactive hydrocodone 5 mg-acetaminophen 325 mg tablet RxNorm: 898467 Tablet(s) PO TAKE 1 TABLET BY MOUTH EVERY 6 HOURS NEEDED FOR PAIN 09/26/2013 12/11/2013 Inactive ( Appended: Controlled substance eRx refill - RxReferenceNumber: [id number]|1|0|1 ) hydrocodone 5 mg-acetaminophen 325 mg tablet RxNorm: 227298 1 Tablet(s) PO Q6 PRN 09/26/2013 01/24/2014 Inactive cyclobenzaprine 10 mg tablet RxNorm: 754356 Tablet(s) PO TAKE 1 TABLET BY MOUTH EVERY 8 HOURS NEEDED 09/16/2013 No Stop Date Active omeprazole 20 mg capsule,delayed release RxNorm: 889903 Capsule(s) PO TAKE 1 CAPSULE BY MOUTH TWICE DAILY 09/02/2013 Inactive Lasix 20 mg tablet RxNorm: 234013 Tablet(s) PO TAKE 2 TABLETS BY MOUTH EVERY MORNING AND 1 TABLET BY MOUTH AT 3 PM 09/02/2013 04/10/2016 Inactive Diflucan 150 mg tablet RxNorm: 565061 Tablet(s) PO TAKE 1 TABLET BY MOUTH EVERY OTHER DAY FOR 8 DOSES 08/29/20132013 Inactive Effexor XR 37.5 mg capsule,extended release RxNorm: 666795 Capsule(s) PO TAKE 2 CAPSULES BY MOUTH EVERY MORNING AND 1 CAPSULE BY MOUTH EVERY NIGHT AT BEDTIME 08/29/2013 11/03/2013 Inactive diltiazem ER (XR/XT) 240 mg capsule,extended release, controlled RxNorm: 005649 Capsule(s) PO TAKE 1 CAPSULE BY MOUTH EVERY DAY 201312/03/2013 Inactive Xanax 0.5 mg tablet RxNorm: 351299 1 Tablet(s) PO TID PRN 11/2013 No Stop Date Active (Appended: Controlled substance eRx refill - RxReferenceNumber: [id number]| 119845|1|0|1) colestipol 1 gram tablet RxNorm: 8613901 Tablet(s) PO TAKE 1 TABLET BY MOUTH TWICE DAILY 08/26/2013 11/25/2013 Inactive Victoza 3-Babak 0.6 mg/0.1 mL (18 mg/3 mL) subcutaneous pen injector RxNorm: 735366 1.2 Milligram(s) SQ daily 0.6 x 2 weeks then increase to 1.2mg daily 08/19/2013 12/16/2013 Inactive Synthroid 88 mcg tablet RxNorm: 937310 1 Tablet(s) PO daily 12/09/2013 Inactive Lasix 20 mg tablet RxNorm: Tablet(s) PO TAKE 2 TABLETS BY MOUTH EVERY MORNING AND 2 TABLETS BY MOUTH AT 3 PM 08/12/2013 10/18/2016 Inactive Xanax 0.5 mg tablet RxNorm: 505238 1 Tablet(s) PO TID PRN No Stop Date Active (Appended: Controlled substance eRx refill - RxReferenceNumber: [id number]| [id number]|1|0|1) Lasix 20 mg tablet RxNorm: Tablet(s) PO TAKE 2 TABLETS BY MOUTH EVERY MORNING AND 1 TABLET BY MOUTH AT 3 PM 08/07/2013 08/11/2013 Inactive Voltaren 1 % topical gel RxNorm: 739774 4 Gram(s) TOP QID 08/0111/26/2013 Inactive Zyvox 600 mg tablet RxNorm: 048465 1 Tablet(s) PO BID 201307/27/2013 Inactive please call the office is this is too expensive for the pt Zyvox 600 mg tablet RxNorm: 509143 1 Tablet(s) PO BID 201307/17/2013 Inactive hydrocodone 5 mg-acetaminophen 325 mg tablet RxNorm: 1799561 1 Tablet(s) PO Q6 PRN 07/15/2013 09/26/2013 Inactive Zofran 4 mg tablet RxNorm: 680245 1 Tablet(s) PO Q4-6H 201310/02/2013 Inactive Lasix 20 mg tablet RxNorm: Tablet(s) PO TAKE 2 TABLETS BY MOUTH EVERY MORNING AND 1 TABLET BY MOUTH AT 3 PM 07/11/2013 10/18/2016 Inactive cyclobenzaprine 10 mg tablet RxNorm: 196034 1 Tablet(s) PO Q8 PRN 06/27/2013 08/25/2013 Inactive gabapentin 600 mg tablet RxNorm: 912938 1.5 Tablet(s) PO TID 01/02/2014 Inactive Lasix 20 mg tablet RxNorm: 509801 Tablet(s) PO TAKE 2 TABLETS BY MOUTH EVERY MORNING AND 1 TABLET BY MOUTH AT 3 PM 06/17/2013 07/10/2013 Inactive hydrocodone 5 mg-acetaminophen 325 mg tablet RxNorm: 348368 1 Tablet(s) PO Q6 PRN 06/10/2013 07/14/2013 Inactive hydrocortisone 2.5 % rectal cream RxNorm: 188704 1 Suppository RTL BID PRN 06/10/2013 06/29/2013 Inactive Flexeril 10 mg tablet RxNorm: 353512 1 Tablet(s) PO Q8 PRN 06/0406/26/2013 Inactive diltiazem ER (XR/XT) 240 mg capsule,extended release, controlled RxNorm: 873601 Capsule(s) PO TAKE 1 CAPSULE BY MOUTH EVERY DAY 201310/26/2017 Inactive omeprazole 20 mg capsule,delayed release RxNorm: 217896 Capsule(s) PO TAKE 1 CAPSULE BY MOUTH TWICE DAILY 05/24/2013 Inactive colestipol 1 gram tablet RxNorm: 3705452 Tablet(s) PO TAKE 1 TABLET BY MOUTH TWICE DAILY 05/23/2013 04/21/2016 Inactive Januvia 100 mg tablet RxNorm: 757012 1 Tablet(s) PO daily 201308/18/2013 Inactive Activella 0.5 mg-0.1 mg tablet RxNorm: 621530 Tablet(s) PO TAKE 1 TABLET BY MOUTH DAILY FOR MENOPAUSAL SYMPTOM 05/17/2013 Inactive Xanax 0.5 mg tablet RxNorm: 954870 1 Tablet(s) PO TID PRN 08/06/2013 Inactive (Appended: Controlled substance eRx refill - RxReferenceNumber: [id number]| 339201|1|0|1) Kenalog 40 mg/mL suspension for injection RxNorm: 1506477 Milliliter(s) Inj 05/07/2013 05/07/2013 Inactive levofloxacin 500 mg tablet RxNorm: 820408 1 Tablet(s) PO daily pt to take 500mg on day#1, 3, 5, 7 and 1/2 tablet on days 2, 4, 6, and 8 05/0705/14/2013 Inactive Lyrica 50 mg capsule RxNorm: 347702 1 Capsule(s) PO TID 201206/26/2013 Inactive hydrocodone 5 mg-acetaminophen 500 mg tablet RxNorm: 035819 1 Tablet(s) PO Q6 PRN 04/22/2013 06/09/2013 Inactive Zofran 4 mg tablet RxNorm: 648329 1 Tablet(s) PO Q4-6H 201207/14/2013 Inactive Zofran 4 mg tablet RxNorm: 553466 1 Tablet(s) PO Q6 PRN 04/0404/08/2013 Inactive hydrocodone 5 mg-acetaminophen 500 mg tablet RxNorm: 262157 1 Tablet(s) PO Q6 PRN 03/21/2013 04/21/2013 Inactive Diflucan 150 mg tablet RxNorm: 547989 1 Tablet(s) PO every other day 1 pill po every other day x 8 doses 03/19/201306/26 Inactive potassium chloride ER 10 mEq tablet,extended release RxNorm: 701737 1 Tablet(s) PO QDAY PRN take with lasix 03/07/201302/2014 Inactive potassium chloride ER 10 mEq tablet,extended release RxNorm: 573785 1 Tablet(s) PO QDAY PRN take with lasix 03/04/2013 Inactive fluconazole 150 mg tablet RxNorm: 582934 1 Tablet(s) PO daily 03/01/2013 02/28/2013 Inactive fluconazole 150 mg tablet RxNorm: 944904 1 Tablet(s) PO daily 03/01/2013 03/05/2013 Inactive Combivent 18 mcg-103 mcg/actuation Aerosol Inhaler RxNorm: 334870 2 Puff(s) INH QID 02/12/2013 02/12/2013 Inactive Zofran 4 mg tablet RxNorm: 117671 1 Tablet(s) PO Q6 PRN 02/1104/03/2013 Inactive Lasix 20 mg tablet RxNorm: 010003 1 Tablet(s) PO BID one pill in morning and one pill in afternoon (3pm) 02/04/2013 Inactive Xopenex HFA 45 mcg/actuation Aerosol Inhaler RxNorm: 240455 2 INH QID 01/29/2013 09/21/2015 Inactive Effexor XR 37.5 mg capsule,extended release RxNorm: 005082 2 q am and 1 at hs Capsule(s) PO TAKE 2 CAPSULES BY MOUTH EVERY MORNING AND 1 CAPSULE EVERY NIGHT AT BEDTIME 01/29/2013 02/15/2016 Inactive fluconazole 150 mg tablet RxNorm: 427494 1 Tablet(s) PO daily 01/29/2013 02/02/2013 Inactive hydrocodone 5 mg-acetaminophen 500 mg tablet RxNorm: 108358 1 Tablet(s) PO Q6 PRN 01/29/2013 03/20/2013 Inactive Effexor XR 37.5 mg capsule,extended release RxNorm: 358272 Capsule(s) PO 01/29/2013 08/28/2013 Inactive TAKE 2 CAPSULES BY MOUTH EVERY MORNING AND 1 CAPSULE EVERY NIGHT AT BEDTIME doxycycline hyclate 100 mg tablet RxNorm: 428465 1 Tablet(s) PO BID 01/01/2013 01/10/2013 Inactive doxycycline hyclate 100 mg tablet RxNorm: 962976 1 Tablet(s) PO BID 01/01/2013 12/31/2012 Inactive Synthroid 75 mcg tablet RxNorm: 036973 1 Tablet(s) PO daily 06/29/2013 Inactive Synthroid 75 mcg tablet RxNorm: 319787 1 Tablet(s) PO daily 12/31/2012 Inactive Xanax 0.5 mg tablet RxNorm: 467370 Tablet(s) PO TAKE 1/2 TO 1 TABLET BY MOUTH EVERY 8 HOURS NEEDED FOR ANXIETY 12/27/2012 05/06/2013 Inactive (Appended: Controlled substance eRx refill - RxReferenceNumber: [id number]|1|0|1) Lasix 20 mg tablet RxNorm: 861311 1 Tablet(s) PO daily 201202/03/2013 Inactive Santyl 250 unit/gram Topical Ointment RxNorm: 1967011 1 Application TOP daily 12/20/2012 12/29/2012 Inactive Levaquin 500 mg tablet RxNorm: 304710 1 Tablet(s) PO daily 05/201212/26/2012 Inactive acyclovir 400 mg tablet RxNorm: 117603 1 Tablet(s) PO TID 12/0312/09/2012 Inactive acyclovir 400 mg tablet RxNorm: 847198 1 Tablet(s) PO TID 12/0312/02/2012 Inactive fluconazole 150 mg tablet RxNorm: 242788 1 Tablet(s) PO daily 11/26/2012 11/30/2012 Inactive Effexor XR 37.5 mg capsule,extended release RxNorm: 595479 Capsule(s) PO TAKE 2 CAPSULES BY MOUTH EVERY MORNING AND 1 CAPSULE EVERY NIGHT AT BEDTIME 11/14/2012 01/28/2013 Inactive albuterol sulfate 1.25 mg/3 mL solution for nebulization RxNorm: 531683 3 Milliliter(s) INH TID 10/29/20122012 Inactive 1 box Cartia XT 180 mg capsule,extended release RxNorm: 533182 1 Capsule(s) PO daily TAKE 1 CAPSULE BY MOUTH AT BEDTIME ..TAKE THIS IN ADDITION TO 240 MG IN THE MORNING 10/29/2012 11/26/2013 Inactive acyclovir 800 mg tablet RxNorm: 734322 1 Tablet(s) PO BID 10/2911/04/2012 Inactive Diflucan 150 mg tablet RxNorm: 412310 1 Tablet(s) PO daily 10/14/2012 Inactive TAKE 1 TABLET BY MOUTH EVERY DAY Toprol XL 100 mg tablet,extended release RxNorm: 219489 1 Tablet(s) PO BID 10/11/2012 09/05/2013 Inactive Zithromax Z-Babak 250 mg tablet RxNorm: 605923 Tablet(s) PO UD as directed. 1 refill , please take back to back 10/05/2012 No Stop Date Active Kenalog 40 mg/mL Susp for Injection RxNorm: 7359267 1 Milliliter(s) Inj QID 09/21/2012 05/07/2013 Inactive fluconazole 150 mg tablet RxNorm: 848504 1 Tablet(s) PO every other day x 5 doses 09/12/2012 11/25/2012 Inactive levothyroxine 50 mcg tablet RxNorm: 537497 1 Tablet(s) PO daily 09/06/2012 12/31/2012 Inactive atorvastatin 40 mg tablet RxNorm: 442636 1 Tablet(s) PO daily 09/06/2012 08/31/2013 Inactive TAKE 1 TABLET BY MOUTH DAILY (THIS IS AN INCREASE IN DOSAGE) Xanax 0.5 mg tablet RxNorm: 009674 Tablet(s) PO TAKE 1/2 TO 1 TABLET BY MOUTH EVERY 8 HOURS NEEDED FOR ANXIETY 08/27/2012 12/26/2012 Inactive (Appended: Controlled substance eRx refill - RxReferenceNumber: [id number]|1|0|1) Zofran 4 mg tablet RxNorm: 053421 1 Tablet(s) PO Q6 PRN 08/1302/10/2013 Inactive Cipro 500 mg tablet RxNorm: 548740 1 Tablet(s) PO BID 201208/07/2012 Inactive Cipro 500 mg tablet RxNorm: 997134 1 Tablet(s) PO BID 201208/12/2012 Inactive Flagyl 500 mg tablet RxNorm: 394424 1 Tablet(s) PO TID 201208/12/2012 Inactive cefdinir 300 mg capsule RxNorm: 468497 1 Capsule(s) PO BID 08/201207/29/2012 Inactive nystatin 100,000 unit/mL Oral Susp RxNorm: 802908 6 Unit(s) PO QID 07/06/2012 07/15/2012 Inactive Kenalog 40 mg/mL Susp for Injection RxNorm: 2482078 1 Milliliter(s) Inj 07/06/2012 07/06/2012 Inactive Zithromax 500 mg tablet RxNorm: 8334238 1 Tablet(s) PO daily 07/10/2012 Inactive metformin 850 mg tablet RxNorm: 464282 1/2 Tablet(s) PO TID 09/201208/24/2012 Inactive TAKE 1 TABLET BY MOUTH IN THE MORNING, 1/2 TABLET AT NOON, AND 1 TABLET IN THE EVENING Lyrica 50 mg capsule RxNorm: 588505 1 Capsule(s) PO TID 201206/25/2012 Inactive Diflucan 150 mg tablet RxNorm: 945520 1 Tablet(s) PO daily 05/201206/25/2012 Inactive TAKE 1 TABLET BY MOUTH EVERY DAY Levaquin 500 mg tablet RxNorm: 415180 1 Tablet(s) PO daily 06/19/2012 Inactive Pneumovax 23 25 mcg/0.5 mL Injection RxNorm: 457404 1/2 Milliliter(s) Inj 06/07/2012 06/07/2012 Inactive metformin 850 mg tablet RxNorm: 906387 1/2 Tablet(s) PO BID 06/25/2012 Inactive TAKE 1 TABLET BY MOUTH IN THE MORNING, 1/2 TABLET AT NOON, AND 1 TABLET IN THE EVENING cefdinir 300 mg capsule RxNorm: 404507 1 Capsule(s) PO BID 02/201305/30/2012 Inactive cefdinir 300 mg capsule RxNorm: 004256 1 Capsule(s) PO BID 02/201306/06/2012 Inactive prednisone 10 mg tablets in a dose pack RxNorm: 646092 Tablet(s) PO UD 6-5-4-3-2- 1 05/31/2012 05/06/2013 Inactive Cipro 500 mg tablet RxNorm: 192352 1 Tablet(s) PO BID 201206/03/2012 Inactive Xanax 0.5 mg tablet RxNorm: 621851 Tablet(s) PO TAKE 1/2 TO 1 TABLET BY MOUTH EVERY 8 HOURS NEEDED FOR ANXIETY 05/28/2012 08/27/2012 Inactive (Appended: Controlled substance eRx refill - RxReferenceNumber: [id number]|1|0|1) Cartia XT 180 mg capsule,extended release RxNorm: 287816 Capsule(s) PO TAKE 1 CAPSULE BY MOUTH AT BEDTIME ..TAKE THIS IN ADDITION TO 240 MG IN THE MORNING 05/24/2012 10/28/2012 Inactive Diflucan 150 mg tablet RxNorm: 026002 1 Tablet(s) PO daily 06/201205/26/2012 Inactive TAKE 1 TABLET BY MOUTH EVERY DAY Cartia XT 240 mg capsule,extended release RxNorm: 738738 1 Capsule(s) PO QA 05/23/2012 09/06/2012 Inactive in addition to 180mg q pm omeprazole 20 mg capsule,delayed release RxNorm: 143523 Capsule(s) PO TAKE 1 CAPSULE BY MOUTH TWICE DAILY 05/21/2012 Inactive diltiazem ER (XR/XT) 240 mg capsule,extended release, controlled RxNorm: 954240 1 Capsule(s) PO daily TAKE ONE CAPSULE BY MOUTH EVERY DAY 05/21/2012 05/30/2013 Inactive Toprol XL 25 mg tablet,extended release RxNorm: 873337 1 Tablet(s) PO QPM take with 50mg (1/2 tab of 100mg) each evening. Continue 100mg in the morning. 05/17/2012 05/27/2012 Inactive Activella 0.5 mg-0.1 mg tablet RxNorm: 7749617 Tablet(s) PO TAKE 1 TABLET BY MOUTH DAILY FOR MENOPAUSAL SYMPTOM 05/09/2012 05/16/2013 Inactive colestipol 1 gram tablet RxNorm: 5334434 Tablet(s) PO TAKE 1 TABLET BY MOUTH TWICE DAILY 05/08/2012 04/21/2016 Inactive Kenalog 40 mg/mL Susp for Injection RxNorm: 7000976 1 Milliliter(s) Inj 05/02/2012 05/02/2012 Inactive Xanax 0.5 mg tablet RxNorm: 737875 Tablet(s) PO 04/16/2012 05/28/2012 Inactive TAKE 1/2 TO 1 TABLET BY MOUTH EVERY 8 HOURS NEEDED FOR ANXIETY (Appended: Controlled substance eRx refill - RxReferenceNumber: [id number]|1|0|1) Diflucan 150 mg tablet RxNorm: 014248 1 Tablet(s) PO daily 05/22/2012 Inactive TAKE 1 TABLET BY MOUTH EVERY DAY Cipro 500 mg tablet RxNorm: 209545 1 Tablet(s) PO BID 201104/19/2012 Inactive Zithromax Z-Babak 250 mg tablet RxNorm: 579052 Tablet(s) PO UD 05/30/2012 Inactive metformin 850 mg tablet RxNorm: 230741 Tablet(s) PO take one pill by mouth in AM, 1/2 at noon, and 1 pill in the evening. 03/16/2012 06/06/2012 Inactive TAKE 1 TABLET BY MOUTH IN THE MORNING, 1/2 TABLET AT NOON, AND 1 TABLET IN THE EVENING Xanax 0.5 mg tablet RxNorm: 963071 Tablet(s) PO 03/05/2012 04/15/2012 Inactive TAKE 1/2 TO 1 TABLET BY MOUTH EVERY 8 HOURS NEEDED FOR ANXIETY (Appended: Controlled substance eRx refill - [facility]|[id number]|1|0|1) potassium chloride ER 10 mEq tablet,extended release RxNorm: 839036 1 Tablet(s) PO QDAY PRN take with lasix 03/05/201204/2013 Inactive potassium chloride ER 10 mEq tablet,extended release RxNorm: 223941 1 Tablet(s) PO QDAY PRN take with lasix 02/28/2012 Inactive Lasix 20 mg tablet RxNorm: 377656 Tablet(s) PO QDAY PRN 02/2708/25/2012 Inactive doxycycline hyclate 100 mg capsule RxNorm: 917196 1 Capsule(s) PO BID 02/27/2012 03/04/2012 Inactive Effexor XR 37.5 mg capsule,extended release RxNorm: 185087 Capsule(s) PO 02/26/2012 01/28/2013 Inactive TAKE 2 CAPSULES BY MOUTH EVERY MORNING AND 1 CAPSULE EVERY NIGHT AT BEDTIME Lomotil 2.5 mg-0.025 mg tablet RxNorm: 3975480 Tablet(s) PO 07/201103/05/2012 Inactive 1 after each loose bm limit 4 per day doxycycline hyclate 100 mg capsule RxNorm: 664852 1 Capsule(s) PO BID 02/15/2012 02/21/2012 Inactive Diflucan 150 mg tablet RxNorm: 042198 Tablet(s) PO daily 201102/21/2012 Inactive TAKE 1 TABLET BY MOUTH EVERY DAY colestipol,micronized 1 gram tablet RxNorm: 9857777 Tablet(s) PO 02/06/2012 04/21/2016 Inactive TAKE 1 TABLET BY MOUTH TWICE DAILY Effexor XR 37.5 mg capsule,extended release RxNorm: 586272 Capsule(s) PO 02/06/2012 02/16/2016 Inactive TAKE 2 CAPSULES BY MOUTH EVERY MORNING AND 1 CAPSULE EVERY NIGHT AT BEDTIME potassium chloride ER 10 mEq tablet,extended release RxNorm: 250636 1 Tablet(s) PO QDAY PRN take with lasix 02/01/201212/2011 Inactive Levaquin 500 mg tablet RxNorm: 449425 1 Tablet(s) PO daily 04/201202/07/2012 Inactive Diflucan 150 mg tablet RxNorm: 871417 Tablet(s) PO 01/27/2012 02/14/2012 Inactive TAKE 1 TABLET BY MOUTH EVERY DAY Effexor XR 37.5 mg capsule,extended release RxNorm: 339221 Capsule(s) PO 01/05/2012 02/05/2012 Inactive TAKE 2 CAPSULES BY MOUTH EVERY MORNING , AND 1 CAPSULE BY MOUTH EVERY NIGHT AT BEDTIME Effexor XR 37.5 mg capsule,extended release RxNorm: 428613 Capsule(s) PO 12/29/2011 01/04/2012 Inactive TAKE 2 CAPSULES BY MOUTH EVERY MORNING , AND 1 CAPSULE BY MOUTH EVERY NIGHT AT BEDTIME Diflucan 150 mg tablet RxNorm: 231957 Tablet(s) PO 12/29/2011 04/09/2012 Inactive TAKE 1 TABLET BY MOUTH EVERY DAY Cipro 500 mg tablet RxNorm: 820571 1 Tablet(s) PO BID 201101/07/2012 Inactive Toprol XL 100 mg tablet,extended release RxNorm: 517175 Tablet(s) PO as doctor directed one tab in am and 1/2 at night 11/30/2011 10/10/2012 Inactive Phenergan 25 mg/mL Injection RxNorm: 359533 Milliliter(s) Inj 11/30/2011 11/30/2011 Inactive Toprol XL 100 mg 24 hr Tab RxNorm: 872362 1.5 Tablet(s) PO as doctor directed one tab in am and 1/2 at night 11/17/201102/2012 Inactive Xopenex HFA 45 mcg/actuation Aerosol Inhaler RxNorm: 615115 2 INH QID 11/08/2011 12/01/2012 Inactive Effexor XR 150 mg 24 hr Cap RxNorm: 378066 1 Capsule(s) PO daily 10/24/2011 01/04/2012 Inactive Xanax 0.5 mg tablet RxNorm: 315006 1/2-1 Tablet(s) PO Q8 PRN 10/20/2011 03/05/2012 Inactive levothyroxine 25 mcg tablet RxNorm: 630831 Tablet(s) PO 201109/05/2012 Inactive TAKE 1 TABLET BY MOUTH DAILY Xanax 0.5 mg Tab RxNorm: 759455 1/2-1 Tablet(s) PO Q8 PRN 09/26/2011 10/19/2011 Inactive potassium chloride ER 10 mEq Tab RxNorm: 666823 1 Tablet(s) PO daily 09/20/2011 09/24/2011 Inactive Lasix 20 mg Tab RxNorm : 338302 1 Tablet(s) PO daily 09/20/2011 09/24/2011 Inactive Xanax 0.5 mg Tab RxNorm: 682920 1/2-1 Tablet(s) PO Q8 PRN 09/12/2011 09/25/2011 Inactive Xanax 0.5 mg Tab RxNorm: 867435 1/2-1 Tablet(s) PO Q8 PRN 08/24/2011 09/11/2011 Inactive Lipitor 20 mg tablet RxNorm: 744060 Tablet(s) PO 08/22/2011 09/05/2012 Inactive TAKE 1 TABLET BY MOUTH DAILY (THIS IS AN INCREASE IN DOSAGE) Cipro 500 mg Tab RxNorm: 999535 1 Tablet(s) PO BID 201110/24/2011 Inactive Flagyl 500 mg Tab RxNorm: 684875 1 Tablet(s) PO TID 201110/24/2011 Inactive Diflucan 150 mg Tab RxNorm: 180736 1 Tablet(s) PO daily 201110/24/2011 Inactive Kenalog 40 mg/mL Susp for Injection RxNorm: 4735127 1 Milliliter(s) Inj 08/01/2011 10/24/2011 Inactive FreeStyle Lancets RxNorm: 1 test Miscellaneous TID 201107/08/2014 Inactive dispense quantity sufficient for three times daily testing for diabetes FreeStyle Test Strips RxNorm: 1 Miscellaneous BID 07/21/2011 08/13/2012 Inactive please give lancets alsodx 250.02 Xanax 0.25 mg Tab RxNorm: 600526 1 Tablet(s) PO Q8 PRN 07/06 No Stop Date Active colestipol 1 gram Tab RxNorm: 2775552 Tablet(s) PO 07/04/2011 04/21/2016 Inactive TAKE 1 TABLET BY MOUTH TWICE DAILY DIRECTED colestipol 1 gram tablet RxNorm: 6114629 1 Tablet(s) PO BID 07/03/2011 Inactive Cartia XT 180 mg capsule,extended release RxNorm: 080045 1 Capsule(s) PO QHS 06/30/2011 11/16/2011 Inactive in addition to 240mg q am venlafaxine 37.5 mg Tab RxNorm: 705809 1 Tablet(s) PO BID 06/2406/29/2011 Inactive prednisone 5 mg Tab RxNorm: 972597 Tablet(s) PO UD 2011 10/24/2011 Inactive six day taper #21 Lyrica 50 mg capsule RxNorm: 749752 1 Capsule(s) PO TID 201108/18/2011 Inactive Diflucan 150 mg tablet RxNorm: 835906 1 Tablet(s) PO daily 06/24/2011 Inactive levofloxacin 500 mg Tab RxNorm: 631115 1 Tablet(s) PO daily 08/15/2011 Inactive azithromycin 250 mg Tab RxNorm: 273303 PO 05/23/2011 06/20/2011 Inactive omeprazole 20 mg capsule,delayed release RxNorm: 355846 Capsule(s) PO 05/10/2011 05/20/2012 Inactive TAKE 1 CAPSULE BY MOUTH TWICE DAILY;Patient requests 90 day supply diltiazem ER (XR/XT) 240 mg capsule,extended release, controlled RxNorm: 249054 Capsule(s) PO 04/19/2011 05/21/2012 Inactive TAKE 1 CAPSULE BY MOUTH EVERY MORNING;Patient requests 90 day supply Kenalog 40 mg/mL Susp for Injection RxNorm: 4417115 1 Milliliter(s) Inj 04/18/2011 06/20/2011 Inactive clindamycin 300 mg Cap RxNorm: 576062 1 Capsule(s) PO BID 04/1806/20/2011 Inactive lisinopril-hydrochlorothiazide 20 mg-12.5 mg Tab RxNorm: 018370 2 Tablet(s) PO daily 04/18/2011 10/24/2011 Inactive fluconazole 150 mg Tab RxNorm: 397832 1 Tablet(s) PO daily 07/201006/20/2011 Inactive Activella 0.5 mg-0.1 mg tablet RxNorm: 6653363 Tablet(s) PO 05/201005/08/2012 Inactive TAKE 1 TABLET BY MOUTH DAILY FOR MENOPAUSAL SYMPTOM diltiazem ER (XR/XT) 240 mg Continuous Release Cap RxNorm: 812800 1 Capsule(s) PO daily 03/17/2011 03/16/2011 Inactive diltiazem ER (XR/XT) 240 mg Continuous Release Cap RxNorm: 360035 Capsule(s) PO 03/17/2011 06/20/2011 Inactive TAKE 1 CAPSULE BY MOUTH EVERY MORNING metformin 850 mg tablet RxNorm: 906781 1 Tablet(s) PO as doctor directed take one pill by mouth in AM, 1/2 at noon, and 1 pill in the evening. 01/21/2011 04/20/2011 Inactive Xopenex 1.25 mg/3 mL solution for nebulization RxNorm: 439589 3 Milliliter(s) INH Q6 PRN No Start Date Active Lomotil 2.5 mg-0.025 mg tablet RxNorm: 0277400 Tablet(s) PO No Start Date 02/21/2012 Inactive 1 after each loose bm limit 4 per day Novolog Flexpen U-100 Insulin aspart 100 unit/mL subcutaneous RxNorm: 1407873 10 Unit(s) SQ AC No Start Date 10/26 Inactive with sliding scale-Dr Yanna Judd FlexTouch U-100 100 unit/mL (3 mL) subcutaneous insulin pen RxNorm: 6437419 40 Unit(s) SQ daily No Start Date Inactive gabapentin 600 mg tablet RxNorm: 985091 1 Tablet(s) PO TID No Start Date 06/26/2013 Inactive Effexor XR 37.5 mg capsule,extended release RxNorm: 017782 1 Capsule(s) PO BID No Start Date 10/23/2011 Inactive Levemir FlexTouch 100 unit/mL (3 mL) subcutaneous insulin pen RxNorm: 566966 50 Unit(s) SQ BID No Start Date 04/24/2017 Inactive Combivent Respimat 20 mcg-100 mcg/actuation solution for inhalation RxNorm: 4886108 1 INH QID No Start Date 05/11/2014 Inactive Xanax 0.5 mg Tab RxNorm: 644618 1/2-1 Tablet(s) PO Q8 PRN No Start Date 08/23/2011 Inactive Xopenex HFA 45 mcg/actuation Aerosol Inhaler RxNorm: 062923 2 INH QID No Start Date 11/07/2011 Inactive promethazine 25 mg tablet RxNorm: 193457 1 Tablet(s) PO Q8 as needed No Start Date 08/12/2015 Inactive colestipol 1 gram Tab RxNorm: 8397796 1 Tablet(s) PO BID No Start Date 07/03/2011 Inactive Cartia XT 240 mg capsule,extended release RxNorm: 627626 1 Capsule(s) PO QAM No Start Date 05/22/2012 Inactive in addition to 180mg q pm Lipitor 20 mg Tab RxNorm: 520328 1 Tablet(s) PO daily No Start Date 08/21/2011 Inactive FreeStyle Test Strips RxNorm: 1 Miscellaneous BID No Start Date 07/20/2011 Inactive Touphylliso SoloStar U-300 Insulin 300 unit/mL (1.5 mL) subcutaneous pen RxNorm: 2652630 40 Unit(s) SQ BID No Start Date 10/26/2017 Inactive Diflucan 150 mg tablet RxNorm: 452630 1 Tablet(s) PO daily 1 pill po every other day x 8 doses No Start Date 03/18/2013 Inactive hydrocodone 5 mg-acetaminophen 500 mg tablet RxNorm: 776148 1 Tablet(s) PO Q6 PRN No Start Date 01/28/2013 Inactive Lasix 20 mg tablet RxNorm: 120381 Tablet(s) PO QDAY PRN No Start Date 02/27/2012 Inactive Promethazine VC 6.25 mg-5 mg/5 mL Syrup RxNorm: 4761786 1-2 PO Q6 PRN No Start Date 10/07/2013 Inactive promethazine 25 mg tablet RxNorm: 046613 1 Tablet(s) PO Q6 PRN No Start Date 02/09/2017 Inactive digoxin 125 mcg tablet RxNorm: 788490 1 Tablet(s) PO daily No Start Date 06/20/2017 Inactive Xanax 0.25 mg Tab RxNorm: 796820 1 Tablet(s) PO Q8 PRN No Start Date 07/05/2011 Inactive Diflucan 150 mg tablet RxNorm: 855938 1 Tablet(s) PO every other day x 4 doses No Start Date 04/09/2014 Inactive Carafate 100 mg/mL Oral Susp RxNorm: 493039 2 Teaspoon(s) PO daily No Start Date 10/24/2011 Inactive prednisone 5 mg Tab RxNorm: 853528 Tablet(s) PO UD No Start Date 06/22/2011 Inactive six day taper #21 Tessalon Perles 100 mg capsule RxNorm: 986880 2 Capsule(s) PO TID as needed No Start Date 05/16/2017 Inactive Bactroban 2 % topical ointment RxNorm: 639115 1 Application TOP BID No Start Date 09/26/2013 Inactive Phenergan 25 mg tablet RxNorm: 381694 1 Tablet(s) PO Q8 as needed nausea No Start Date 06/28/2015 Inactive flecainide 50 mg tablet RxNorm: 144443 1 Tablet(s) PO BID No Start Date 02/01/2016 Inactive Activella 0.5 mg-0.1 mg Tab RxNorm: 8818656 1 Tablet(s) PO daily No Start Date 03/21/2011 Inactive hydrocodone 10 mg-acetaminophen 325 mg tablet RxNorm: 863225 1 Tablet(s) PO Q6 as needed No Start Date 02/04/2016 Inactive lisinopril 20 mg Tab RxNorm: 533120 1 Tablet(s) PO daily No Start Date 06/20/2011 Inactive prednisone 10 mg tablets in a dose pack RxNorm: 547274 Tablet(s) PO UD 6-5-4-3-2- 1 No Start Date 05/30/2012 Inactive hydrocodone 7.5 mg-acetaminophen 325 mg tablet RxNorm: 139581 1 Tablet(s) PO Q6 PRN No Start Date 10/06/2013 Inactive hyoscyamine 0.125 mg sublingual tablet RxNorm: 0016055 1 Tablet(s) SL TID as needed No Start Date 05/16/2017 Inactive Cartia XT 180 mg 24 hr Cap RxNorm: 971744 1 Capsule(s) PO QHS No Start Date 06/29/2011 Inactive in addition to 240mg q am Zofran 4 mg tablet RxNorm: 590886 1 Tablet(s) PO Q6 PRN No Start Date 08/12/2012 Inactive omeprazole 20 mg Cap, Delayed Release RxNorm: 731606 1 Capsule(s) PO BID No Start Date 05/09/2011 Inactive venlafaxine 37.5 mg Tab RxNorm: 083021 1 Tablet(s) PO BID No Start Date 10/24/2011 Inactive Vesicare 10 mg tablet RxNorm: 111018 1 Tablet(s) PO daily No Start Date 09/28/2015 Inactive levothyroxine 25 mcg Tab RxNorm: 611971 1 Tablet(s) PO daily No Start Date 10/18/2011 Inactive Zithromax Z-Babak 250 mg tablet RxNorm: 309739 Tablet(s) PO UD No Start Date 04/01/2012 Inactive Januvia 100 mg tablet RxNorm: 821842 1 Tablet(s) PO daily No Start Date 05/22/2013 Inactive Lantus Solostar 100 unit/mL (3 mL) subcutaneous insulin pen RxNorm: 259962 Unit( s) SQ No Start Date 04/17/2017 Inactive 10 units q am and 50units at night fluconazole 150 mg tablet RxNorm: 405819 1 Tablet(s) PO every other day x 5 doses No Start Date 09/11/2012 Inactive Toprol XL 25 mg 24 hr Tab RxNorm: 243588 1 Tablet(s) PO daily No Start Date 11/16/2011 Inactive Medication Administered Medication Codes Instructions Start Date Status Kenalog 40 mg/mL suspension for injection RxNorm: 4636513 Milliliter 06/26/2015 No longer Active Kenalog 40 mg/mL suspension for injection RxNorm: 6696517 Milliliter 05/07/2013 No longer Active Kenalog 40 mg/mL Susp for Injection RxNorm: 9389138 1Milliliter 07/06/2012 No longer Active Pneumovax 23 25 mcg/0.5 mL Injection RxNorm: 631550 /2Milliliter 06/07/2012 No longer Active Kenalog 40 mg/mL Susp for Injection RxNorm: 6419217 1Milliliter 05/02/2012 No longer Active Phenergan 25 mg/mL Injection RxNorm: 362035 Milliliter 11/30/2011 No longer Active Immunizations Vaccine [...] Item Item Code Result Date Culture Urine [id number] URINE CULTURE SEE NOTES 12/01/2017 Urine Culture Ucult Complete >100,000 col/ml aerobic growth sent to ref lab 11/29/2017 Comp Metabolic Laf272 NA 135 mEq/L 08/21/2017 Comp Metabolic Aam277 K 4.6 mEq/L 08/21/2017 Comp Metabolic Vwf064 CL 92 mEq/L 08/21/2017 Comp Metabolic Mum091 CO2 32.0 mEq/L 08/21/2017 Comp Metabolic Tvx947 ANION GAP 16 08/21/2017 Comp Metabolic Mnh989 GLUCOSE 298 mg/dL 08/21/2017 Comp Metabolic Rep835 Creat 1.1 mg/dL 08/21/2017 Comp Metabolic Kdc671 eGFR 54 ml/min/1.73m2 08/21/2017 Comp Metabolic Pia784 BUN 22 mg/dL 08/21/2017 Comp Metabolic Sqs489 B/C Ratio 20.6 Ratio 08/21/2017 Comp Metabolic Iwn519 CALCIUM 9.3 mg/dL 08/21/2017 Comp Metabolic Gvg033 ALK PHOS 145 U/L 08/21/2017 Comp Metabolic Jed358 AST(SGOT) 31 U/L 08/21/2017 Comp Metabolic Lne198 ALT(SGPT) 19 U/L 08/21/2017 Comp Metabolic Jxy870 BILI T 0.3 mg/dL 08/21/2017 Comp Metabolic Xea363 ALBUMIN 3.8 g/dL 08/21/2017 Comp Metabolic Pmy333 TPRO 7.1 g/dL 08/21/2017 Comp Metabolic Iwj611 GLOB 3.3 g/dL 08/21/2017 Comp Metabolic Siq653 A/G Ratio 1.2 Ratio 08/21/2017 Comp Metabolic Wwl328 Osmo 285 mOsmo 08/21/2017 Cbc With Differential [...] 27.9 pg 08/18/2017 Cbc With Differential Ord2 [place]% 6.9 % 08/18/2017 Cbc With Differential Ord2 [...] 2.05 K/ul 08/18/2017 Cbc With Differential Ord2 [place] ABS# 0.7 K/ul 08/18/2017 Cbc With Differential Ord2 Eos ABS# 0.3 K/ul 08/18/2017 Cbc With Differential Ord2 Baso ABS# 0.0 K/ul 08/18/2017 %Hba1C Yux299 % HbA1c 42515-6 11.5 % 06/13/2017 %Hba1C Jjr263 Gluc Ave 283 mg/dL 06/13/2017 Cbc With [...] 27.6 pg 03/27/2017 Cbc With Differential Ord2 [place]% 7.2 % 03/27/2017 Cbc With Differential Ord2 [...] 2.11 K/ul 03/27/2017 Cbc With Differential Ord2 [place] ABS# 0.8 K/ul 03/27/2017 Cbc With Differential Ord2 Eos ABS# 0.2 K/ul 03/27/2017 Cbc With Differential Ord2 Baso ABS# 0.0 K/ul 03/27/2017 Digoxin Ord9 DIGOXIN 0.5 NG/ML 03/27/2017 Comp Metabolic Sea987 NA 136 mEq/L 03/27/2017 Comp Metabolic Iee672 K 4.1 mEq/L 03/27/2017 Comp Metabolic Fdr458 CL 90 mEq/L 03/27/2017 Comp Metabolic Qfn267 CO2 34.0 mEq/L 03/27/2017 Comp Metabolic Fgy775 ANION GAP 16 03/27/2017 Comp Metabolic Kcx074 GLUCOSE 325 mg/dL 03/27/2017 Comp Metabolic Jns549 Creat 1.0 mg/dL 03/27/2017 Comp Metabolic Bit581 eGFR 62 ml/min/1.73m2 03/27/2017 Comp Metabolic Tkx400 BUN 15 mg/dL 03/27/2017 Comp Metabolic Yiv134 B/C Ratio 15.8 Ratio 03/27/2017 Comp Metabolic Icz969 CALCIUM 9.5 mg/dL 03/27/2017 Comp Metabolic Ptt620 ALK PHOS 159 U/L 03/27/2017 Comp Metabolic Rqv819 AST(SGOT) 57 U/L 03/27/2017 Comp Metabolic Xyz622 ALT(SGPT) 32 U/L 03/27/2017 Comp Metabolic Uzv609 BILI T 0.4 mg/dL 03/27/2017 Comp Metabolic Yhk099 ALBUMIN 4.3 g/dL 03/27/2017 Comp Metabolic Eyn532 TPRO 7.3 g/dL 03/27/2017 Comp Metabolic Eyy131 GLOB 3.0 g/dL 03/27/2017 Comp Metabolic Pbf813 A/G Ratio 1.4 Ratio 03/27/2017 Comp Metabolic Lyd888 Osmo 285 mOsmo 03/27/2017 Magnesium Ord90 Mag 2.4 mg/dL 02/27/2017 Comp Metabolic Pwp020 NA 138 mEq/L 02/27/2017 Comp Metabolic Rnu617 K 4.2 mEq/L 02/27/2017 Comp Metabolic Uhg052 CL 91 mEq/L 02/27/2017 Comp Metabolic Pkc617 CO2 36.0 mEq/L 02/27/2017 Comp Metabolic Fpw640 ANION GAP 15 02/27/2017 Comp Metabolic Bwn424 GLUCOSE 297 mg/dL 02/27/2017 Comp Metabolic Oto168 Creat 0.9 mg/dL 02/27/2017 Comp Metabolic Zor074 eGFR 71 ml/min/1.73m2 02/27/2017 Comp Metabolic Qcp634 BUN 12 mg/dL 02/27/2017 Comp Metabolic Xhx564 B/C Ratio 14.1 Ratio 02/27/2017 Comp Metabolic Jlh629 CALCIUM 9.0 mg/dL 02/27/2017 Comp Metabolic Yim362 ALK PHOS 146 U/L 02/27/2017 Comp Metabolic Jyk546 AST(SGOT) 28 U/L 02/27/2017 Comp Metabolic Vey107 ALT(SGPT) 12 U/L 02/27/2017 Comp Metabolic Etc644 BILI T 0.3 mg/dL 02/27/2017 Comp Metabolic Axt164 ALBUMIN 3.8 g/dL 02/27/2017 Comp Metabolic Hxr176 TPRO 6.6 g/dL 02/27/2017 Comp Metabolic Aue098 GLOB 2.8 g/dL 02/27/2017 Comp Metabolic Vft275 A/G Ratio 1.3 Ratio 02/27/2017 Comp Metabolic Dgy396 Osmo 286 mOsmo 02/27/2017 Digoxin Ord9 DIGOXIN <0.2 NG/ML 02/14/2017 Comp Metabolic Nru629 NA 138 mEq/L 02/14/2017 Comp Metabolic Bvh013 K 3.5 mEq/L 02/14/2017 Comp Metabolic Umy902 CL 95 mEq/L 02/14/2017 Comp Metabolic Xtw526 CO2 29.0 mEq/L 02/14/2017 Comp Metabolic Raj845 ANION GAP 18 02/14/2017 Comp Metabolic Abs366 GLUCOSE 254 mg/dL 02/14/2017 Comp Metabolic Vum838 Creat 1.0 mg/dL 02/14/2017 Comp Metabolic Bmb204 eGFR 62 ml/min/1.73m2 02/14/2017 Comp Metabolic Ijw330 BUN 14 mg/dL 02/14/2017 Comp Metabolic Yoj254 B/C Ratio 14.6 Ratio 02/14/2017 Comp Metabolic Smf117 CALCIUM 8.6 mg/dL 02/14/2017 Comp Metabolic Pkf011 ALK PHOS 155 U/L 02/14/2017 Comp Metabolic Rda444 AST(SGOT) 42 U/L 02/14/2017 Comp Metabolic Yod691 ALT(SGPT) 28 U/L 02/14/2017 Comp Metabolic Ers797 BILI T 0.3 mg/dL 02/14/2017 Comp Metabolic Jft447 ALBUMIN 3.6 g/dL 02/14/2017 Comp Metabolic Gak374 TPRO 6.2 g/dL 02/14/2017 Comp Metabolic Rdf404 GLOB 2.6 g/dL 02/14/2017 Comp Metabolic Xkx468 A/G Ratio 1.4 Ratio 02/14/2017 Comp Metabolic Fwr808 Osmo 285 mOsmo 02/14/2017 Vitamin D 25 Oh Sky7510 VITAMIN D, 25 HYDROXY 8.99 ng/mL Tsh [...] 28.0 pg 01/16/2017 Cbc With Differential Ord2 [place]% 7.3 % 01/16/2017 Cbc With Differential Ord2 Eos% 1.6 % 01/16/2017 Cbc With Differential Ord2 MCHC 31.3 pg 01/16/2017 Cbc With Differential Ord2 Baso% 0.4 % 01/16/2017 Cbc With Differential Ord2 PLT 344 K/ul 01/16/2017 Cbc With Differential Ord2 Neut ABS# 5.95 K/ul 01/16/2017 Cbc With Differential Ord2 RDW 14.2 % 01/16/2017 Cbc With Differential Ord2 Lymph ABS# 1.42 K/ul 01/16/2017 Cbc With Differential Ord2 [place] ABS# 0.6 K/ul 01/16/2017 Cbc With Differential Ord2 Eos ABS# 0.1 K/ul 01/16/2017 Cbc With Differential Ord2 Baso ABS# 0.0 K/ul 01/16/2017 Sed Rate Ord21 ESR 33 mm/hr 01/16/2017 C-Reactive Protein Qnt Crqnt CRP 3.3 mg/dl 01/16/2017 Free T4 Wgi484 FREE T4 0.81 ng/dL 01/16/2017 %Hba1C Vmf924 % HbA1c 27810-6 12.4 % 01/16/2017 %Hba1C Nuj019 Gluc Ave 309 mg/dL 01/16/2017 Comp Metabolic Hou605 NA 134 mEq/L 01/16/2017 Comp Metabolic Khh425 K 4.0 mEq/L 01/16/2017 Comp Metabolic Kgq530 CL 89 mEq/L 01/16/2017 Comp Metabolic Fez407 CO2 30.0 mEq/L 01/16/2017 Comp Metabolic Myn523 ANION GAP 19 01/16/2017 Comp Metabolic Vgq968 GLUCOSE 496 Result Verified By Repeat Analysis mg/dL 01/16/2017 Comp Metabolic Kex117 Creat 0.8 mg/dL 01/16/2017 Comp Metabolic Aez049 eGFR 73 ml/min/1.73m2 01/16/2017 Comp Metabolic Lft043 BUN 13 mg/dL 01/16/2017 Comp Metabolic Dxu746 B/C Ratio 15.7 Ratio 01/16/2017 Comp Metabolic Fcg538 CALCIUM 8.8 mg/dL 01/16/2017 Comp Metabolic Gmn696 ALK PHOS 171 U/L 01/16/2017 Comp Metabolic Qxt466 AST(SGOT) 54 U/L 01/16/2017 Comp Metabolic Grh488 ALT(SGPT) 32 U/L 01/16/2017 Comp Metabolic Rxp410 BILI T 0.3 mg/dL 01/16/2017 Comp Metabolic Dbw140 ALBUMIN 3.9 g/dL 01/16/2017 Comp Metabolic Nhs496 TPRO 6.5 g/dL 01/16/2017 Comp Metabolic Jil691 GLOB 2.6 g/dL 01/16/2017 Comp Metabolic Bak099 A/G Ratio 1.5 Ratio 01/16/2017 Comp Metabolic Arq473 Osmo 290 mOsmo 01/16/2017 Comp Metabolic Oyi001 NA 135 mEq/L 09/14/2016 Comp Metabolic Mui608 K 5.2 mEq/L 09/14/2016 Comp Metabolic Izc455 CL 93 mEq/L 09/14/2016 Comp Metabolic Fhs089 CO2 26.0 mEq/L 09/14/2016 Comp Metabolic Meb573 ANION GAP 21 09/14/2016 Comp Metabolic Ayk496 GLUCOSE 326 mg/dL 09/14/2016 Comp Metabolic Eey785 Creat 1.0 mg/dL 09/14/2016 Comp Metabolic Wpe090 eGFR 57 ml/min/1.73m2 09/14/2016 Comp Metabolic Hyv174 BUN 16 mg/dL 09/14/2016 Comp Metabolic Hmp911 B/C Ratio 15.5 Ratio 09/14/2016 Comp Metabolic Snp578 CALCIUM 9.2 mg/dL 09/14/2016 Comp Metabolic Bjj608 ALK PHOS 160 U/L 09/14/2016 Comp Metabolic Dhr281 AST(SGOT) 49 U/L 09/14/2016 Comp Metabolic Hlv464 ALT(SGPT) 32 U/L 09/14/2016 Comp Metabolic Bzz505 BILI T 0.4 mg/dL 09/14/2016 Comp Metabolic Snl476 ALBUMIN 4.0 g/dL 09/14/2016 Comp Metabolic Tow797 TPRO 7.3 g/dL 09/14/2016 Comp Metabolic Yex506 GLOB 3.3 g/dL 09/14/2016 Comp Metabolic Iyc648 A/G Ratio 1.2 Ratio 09/14/2016 Comp Metabolic Mrh147 Osmo 284 mOsmo 09/14/2016 Cbc With Differential [...] 28.2 pg 09/14/2016 Cbc With Differential Ord2 [place]% 6.2 % 09/14/2016 Cbc With Differential Ord2 [...] 2.09 K/ul 09/14/2016 Cbc With Differential Ord2 [place] ABS# 0.7 K/ul 09/14/2016 Cbc With Differential Ord2 Eos ABS# 0.2 K/ul 09/14/2016 Cbc With Differential Ord2 Baso ABS# 0.3 K/ul 09/14/2016 %Hba1C Qec227 % HbA1c 82930-3 10.7 % 09/14/2016 %Hba1C Xlk062 Gluc Ave 260 mg/dL 09/14/2016 Manual Differential Ord52 D-Neutr 62 % 09/14/2016 Manual Differential Ord52 D-[place] 1 % 09/14/2016 Manual Differential Ord52 D-Lymph 34 % 09/14/2016 Manual Differential Ord52 D-Eos 2 % 09/14/2016 Manual Differential Ord52 D-[place] 1 % 09/14/2016 Comp Metabolic Onh358 NA 134 mEq/L 08/10/2016 Comp Metabolic Tws240 K 5.0 mEq/L 08/10/2016 Comp Metabolic Qcm181 CL 91 mEq/L 08/10/2016 Comp Metabolic Otv805 CO2 29.0 mEq/L 08/10/2016 Comp Metabolic Mhs774 ANION GAP 19 08/10/2016 Comp Metabolic Gff499 GLUCOSE 291 mg/dL 08/10/2016 Comp Metabolic Dqs852 Creat 0.9 mg/dL 08/10/2016 Comp Metabolic Dln401 eGFR 68 ml/min/1.73m2 08/10/2016 Comp Metabolic Rbb991 BUN 20 mg/dL 08/10/2016 Comp Metabolic Ler236 B/C Ratio 22.7 Ratio 08/10/2016 Comp Metabolic Jrv773 CALCIUM 9.7 mg/dL 08/10/2016 Comp Metabolic Yoi706 ALK PHOS 144 U/L 08/10/2016 Comp Metabolic Hrd926 AST(SGOT) 62 U/L 08/10/2016 Comp Metabolic Fyw838 ALT(SGPT) 37 U/L 08/10/2016 Comp Metabolic Bfz602 BILI T 0.3 mg/dL 08/10/2016 Comp Metabolic Flv834 ALBUMIN 4.3 g/dL 08/10/2016 Comp Metabolic Lca592 TPRO 7.3 g/dL 08/10/2016 Comp Metabolic Hpn056 GLOB 3.0 g/dL 08/10/2016 Comp Metabolic Nlp862 A/G Ratio 1.5 Ratio 08/10/2016 Comp Metabolic Qny832 Osmo 282 mOsmo 08/10/2016 Free T4 Vls668 FREE T4 0.89 ng/dL 08/09/2016 Tsh Ord6 [...] 17.7 % 08/09/2016 Cbc With Differential Ord2 [place]% 5.4 % 08/09/2016 Cbc With Differential Ord2 [...] 2.46 K/ul 08/09/2016 Cbc With Differential Ord2 [place] ABS# 0.8 K/ul 08/09/2016 Cbc With Differential [...] 27.3 pg 04/20/2016 Cbc With Differential Ord2 [place]% 6.3 % 04/20/2016 Cbc With Differential Ord2 [...] 2.63 K/ul 04/20/2016 Cbc With Differential Ord2 [place] ABS# 0.6 K/ul 04/20/2016 Cbc With Differential Ord2 Eos ABS# 0.2 K/ul 04/20/2016 Cbc With Differential Ord2 Baso ABS# 0.0 K/ul 04/20/2016 Comp Metabolic Ssm077 NA 133 mEq/L 04/11/2016 Comp Metabolic Rzx409 K 4.1 mEq/L 04/11/2016 Comp Metabolic Ldv415 CL 92 mEq/L 04/11/2016 Comp Metabolic Upc558 CO2 30.0 mEq/L 04/11/2016 Comp Metabolic Hgj809 ANION GAP 15 04/11/2016 Comp Metabolic Ahg831 GLUCOSE 414 mg/dL 04/11/2016 Comp Metabolic Wuq376 Creat 0.9 mg/dL 04/11/2016 Comp Metabolic Sir077 eGFR 65 ml/min/1.73m2 04/11/2016 Comp Metabolic Jhb034 BUN 22 mg/dL 04/11/2016 Comp Metabolic Nws617 B/C Ratio 23.9 Ratio 04/11/2016 Comp Metabolic Eoh402 CALCIUM 9.2 mg/dL 04/11/2016 Comp Metabolic Nca621 ALK PHOS 145 U/L 04/11/2016 Comp Metabolic Tjc069 AST(SGOT) 22 U/L 04/11/2016 Comp Metabolic Wzl198 ALT(SGPT) 21 U/L 04/11/2016 Comp Metabolic Naw664 BILI T 0.3 mg/dL 04/11/2016 Comp Metabolic Ihq427 ALBUMIN 3.9 g/dL 04/11/2016 Comp Metabolic Ark075 TPRO 6.8 g/dL 04/11/2016 Comp Metabolic Wwg875 GLOB 3.0 g/dL 04/11/2016 Comp Metabolic Auf260 A/G Ratio 1.3 Ratio 04/11/2016 Comp Metabolic Rwo536 Osmo 287 mOsmo 04/11/2016 Cbc With Differential [...] 88.9 fl 04/11/2016 Cbc With Differential Ord2 [place]% 6.9 % 04/11/2016 Cbc With Differential Ord2 [...] 2.09 K/ul 04/11/2016 Cbc With Differential Ord2 [place] ABS# 0.7 K/ul 04/11/2016 Cbc With Differential Ord2 Eos ABS# 0.2 K/ul 04/11/2016 Cbc With Differential Ord2 Baso ABS# 0.0 K/ul 04/11/2016 Comp Metabolic Yns621 NA 136 mEq/L 02/26/2016 Comp Metabolic Nfm053 K 3.9 mEq/L 02/26/2016 Comp Metabolic Tei669 CL 95 mEq/L 02/26/2016 Comp Metabolic Omm412 CO2 29.0 mEq/L 02/26/2016 Comp Metabolic Afo137 ANION GAP 16 02/26/2016 Comp Metabolic Pyi824 GLUCOSE 277 mg/dL 02/26/2016 Comp Metabolic Yln883 Creat 0.7 mg/dL 02/26/2016 Comp Metabolic Tkc285 eGFR 88 ml/min/1.73m2 02/26/2016 Comp Metabolic Keg370 BUN 11 mg/dL 02/26/2016 Comp Metabolic Rhr640 B/C Ratio 15.5 Ratio 02/26/2016 Comp Metabolic Feq096 CALCIUM 8.8 mg/dL 02/26/2016 Comp Metabolic Wat799 ALK PHOS 119 U/L 02/26/2016 Comp Metabolic Xxa837 AST(SGOT) 25 U/L 02/26/2016 Comp Metabolic Ukl183 ALT(SGPT) 20 U/L 02/26/2016 Comp Metabolic Qoe350 BILI T 0.3 mg/dL 02/26/2016 Comp Metabolic Wct849 ALBUMIN 3.8 g/dL 02/26/2016 Comp Metabolic Jwo333 TPRO 6.6 g/dL 02/26/2016 Comp Metabolic Nnm596 GLOB 2.8 g/dL 02/26/2016 Comp Metabolic Acs079 A/G Ratio 1.3 Ratio 02/26/2016 Comp Metabolic Gut366 Osmo 281 mOsmo 02/26/2016 Cbc With Differential [...] 22.4 % 02/26/2016 Cbc With Differential Ord2 MCH 29.6 pg 02/26/2016 Cbc With Differential Ord2 [place]% 6.4 % 02/26/2016 Cbc With Differential Ord2 Eos% 1.4 % 02/26/2016 Cbc With Differential Ord2 MCHC 31.3 pg 02/26/2016 Cbc With Differential Ord2 PLT 371 K/ul 02/26/2016 Cbc With Differential Ord2 Baso% 0.4 % 02/26/2016 Cbc With Differential Ord2 RDW 15.1 % 02/26/2016 Cbc With Differential Ord2 Neut ABS# 8.63 K/ul 02/26/2016 Cbc With Differential Ord2 Lymph ABS# 2.78 K/ul 02/26/2016 Cbc With Differential Ord2 [place] ABS# 0.8 K/ul 02/26/2016 Cbc With Differential Ord2 Eos ABS# 0.2 K/ul 02/26/2016 Cbc With Differential Ord2 Baso ABS# 0.1 K/ul 02/26/2016 %Hba1C Xjq584 % HbA1c 35324-1 9.6 % 02/26/2016 %Hba1C Eal145 Gluc Ave 229 mg/dL 02/26/2016 Comp Metabolic Eiv631 NA 138 mEq/L 11/10/2015 Comp Metabolic Rxa255 K 4.5 mEq/L 11/10/2015 Comp Metabolic Jpj755 CL 99 mEq/L 11/10/2015 Comp Metabolic Zkd241 CO2 34.0 mEq/L 11/10/2015 Comp Metabolic Eqc628 ANION GAP 10 11/10/2015 Comp Metabolic Brl827 GLUCOSE 167 mg/dL 11/10/2015 Comp Metabolic Owi503 Creat 0.8 mg/dL 11/10/2015 Comp Metabolic Zrn037 eGFR 78 ml/min/1.73m2 11/10/2015 Comp Metabolic Gwy369 BUN 22 mg/dL 11/10/2015 Comp Metabolic Eqg391 B/C Ratio 27.8 Ratio 11/10/2015 Comp Metabolic Der587 CALCIUM 8.5 mg/dL 11/10/2015 Comp Metabolic Adu092 ALK PHOS 130 U/L 11/10/2015 Comp Metabolic Uij391 AST(SGOT) 56 U/L 11/10/2015 Comp Metabolic Qrk728 ALT(SGPT) 51 U/L 11/10/2015 Comp Metabolic Oro657 BILI T 0.5 mg/dL 11/10/2015 Comp Metabolic Jsb423 ALBUMIN 3.5 g/dL 11/10/2015 Comp Metabolic Fas829 TPRO 5.8 g/dL 11/10/2015 Comp Metabolic Xda518 GLOB 2.3 g/dL 11/10/2015 Comp Metabolic Uvb657 A/G Ratio 1.5 Ratio 11/10/2015 Comp Metabolic Emb647 Osmo 283 mOsmo 11/10/2015 Cbc With Differential [...] 93.1 fl 11/10/2015 Cbc With Differential Ord2 [place]% 7.7 % 11/10/2015 Cbc With Differential Ord2 [...] 1.92 K/ul 11/10/2015 Cbc With Differential Ord2 [place] ABS# 0.9 K/ul 11/10/2015 Cbc With Differential [...] 95.4 fl 08/11/2015 Cbc With Differential Ord2 [place]% 8.1 % 08/11/2015 Cbc With Differential Ord2 [...] 2.93 K/ul 08/11/2015 Cbc With Differential Ord2 [place] ABS# 0.9 K/ul 08/11/2015 Cbc With Differential Ord2 [place] ABS# 0.1 K/ul 08/11/2015 Cbc With Differential Ord2 Baso ABS# 0.0 K/ul 08/11/2015 Cbc With Differential Ord2 New Analyzer Notice Please note new ref ranges starting 06-03-2015 due to implemntation of new five part differential hematolgy analyzer. 08/11/2015 Comp Metabolic Xxl234 NA 142 mEq/L 08/11/2015 Comp Metabolic Biz721 K 3.6 mEq/L 08/11/2015 Comp Metabolic Spi112 CL 98 mEq/L 08/11/2015 Comp Metabolic Oom546 CO2 33.0 mEq/L 08/11/2015 Comp Metabolic Jel170 ANION GAP 15 08/11/2015 Comp Metabolic Azz834 GLUCOSE 100 mg/dL 08/11/2015 Comp Metabolic Iwe235 Creat 0.9 mg/dL 08/11/2015 Comp Metabolic Kws026 eGFR 65 ml/min/1.73m2 08/11/2015 Comp Metabolic Orj716 BUN 15 mg/dL 08/11/2015 Comp Metabolic Ine303 B/C Ratio 16.3 Ratio 08/11/2015 Comp Metabolic Qcz806 CALCIUM 8.8 mg/dL 08/11/2015 Comp Metabolic Xwp577 ALK PHOS 171 U/L 08/11/2015 Comp Metabolic Hzv571 AST(SGOT) 76 U/L 08/11/2015 Comp Metabolic Xrl211 ALT(SGPT) 64 U/L 08/11/2015 Comp Metabolic Kyr578 BILI T 0.4 mg/dL 08/11/2015 Comp Metabolic Hec595 ALBUMIN 4.2 g/dL 08/11/2015 Comp Metabolic Iza100 TPRO 6.7 g/dL 08/11/2015 Comp Metabolic Kzo333 GLOB 2.6 g/dL 08/11/2015 Comp Metabolic Muw997 A/G Ratio 1.6 Ratio 08/11/2015 Comp Metabolic Fwq126 Osmo 284 mOsmo 08/11/2015 %Hba1C Ozm797 % HbA1c 01895-1 6.7 % 08/11/2015 %Hba1C Erv502 Gluc Ave 146 mg/dL 08/11/2015 Free T4 [id number] FREE T4 1.07 ng/dL 08/11/2015 Culture Urine [id number] URINE CULTURE SEE NOTES 07/23/2015 Culture Urine [id number] Continued Results 07/23/2015 Urine Culture Ucult Complete Growth of aerobe sent to ref lab 07/21/2015 Free T4 [id number] FREE T4 0.76 ng/dL 04/15/2015 Tsh Ord6 hTSH II 1.99 uIU/mL 04/15/2015 %Hba1C Jvj577 % HbA1c 86707-4 6.7 % 04/14/2015 %Hba1C Erw637 Gluc Ave 146 mg/dL 04/14/2015 Comp Metabolic Lhx595 NA 140 mEq/L 04/14/2015 Comp Metabolic Lhb257 K 4.4 mEq/L 04/14/2015 Comp Metabolic Zgz336 CL 99 mEq/L 04/14/2015 Comp Metabolic Bzn594 CO2 29.0 mEq/L 04/14/2015 Comp Metabolic Rdr149 ANION GAP 16 04/14/2015 Comp Metabolic Uap355 GLUCOSE 100 mg/dL 04/14/2015 Comp Metabolic Lmx501 Creat 0.7 mg/dL 04/14/2015 Comp Metabolic Ywp185 eGFR 91 ml/min/1.73m2 04/14/2015 Comp Metabolic Xtv357 BUN 13 mg/dL 04/14/2015 Comp Metabolic Ypq036 B/C Ratio 18.8 Ratio 04/14/2015 Comp Metabolic Bvl726 CALCIUM 9.1 mg/dL 04/14/2015 Comp Metabolic Dzw462 ALK PHOS 138 U/L 04/14/2015 Comp Metabolic Njp111 AST(SGOT) 22 U/L 04/14/2015 Comp Metabolic Noc085 ALT(SGPT) 22 U/L 04/14/2015 Comp Metabolic Kuq355 BILI T 0.3 mg/dL 04/14/2015 Comp Metabolic Ket959 ALBUMIN 4.0 g/dL 04/14/2015 Comp Metabolic Ezj042 TPRO 6.5 g/dL 04/14/2015 Comp Metabolic Dxg716 GLOB 2.5 g/dL 04/14/2015 Comp Metabolic Vrk718 A/G Ratio 1.6 Ratio 04/14/2015 Comp Metabolic Lve412 Osmo 280 mOsmo 04/14/2015 Cbc With Differential [...] Ord2 RDW 16.5 % 04/14/2015 CHEM 14 [id number] AST 15 U/L 09/11/2013 CHEM 14 7954461 ALT 25 IU/L 09/11/2013 CHEM 14 9659871 BUN 29 MG/DL 09/11/2013 CHEM 14 9215594 ALBUMIN 3.8 GM/DL 09/11/2013 CHEM 14 9664811 CHLORIDE 99 MMOL/L 09/11/2013 CHEM 14 2322688 BILI TOT 0.2 MG/DL 09/11/2013 CHEM 14 4699927 ALK PHOS 118 U/L 09/11/2013 CHEM 14 2565534 SODIUM 136 MMOL/L 09/11/2013 CHEM 14 2623434 CREATININE 1.26 MG/DL 09/11/2013 CHEM 14 2274755 CALCIUM 9.0 MG/DL 09/11/2013 CHEM 14 0575428 POTASSIUM 5.0 MMOL/L 09/11/2013 CHEM 14 9097275 PROT TOT 6.2 GM/DL 09/11/2013 CHEM 14 0773842 GLUCOSE 254 MG/DL 09/11/2013 CHEM 14 1746309 BICARB 29 MMOL/L 09/11/2013 CHEM 14 2517890 ANION GAP 8 MEQ/L 09/11/2013 GFR CALC 8973326 GFR AA 52.0L ML/MIN 09/11/2013 GFR CALC 4555167 GFR NON-AA 43.0L ML/MIN 09/11/2013 FREE T4 [id number] FREE T4 1.35 NG/DL 08/02/2013 CBC 5157450 WBC 7.5 10e9/L 08/01/2013 CBC 6183604 RBC 3.88 10e12/L 08/01/2013 CBC 4577760 HGB 12.1 g/dL 08/01/2013 CBC 1096381 HCT DET 37.6 % 08/01/2013 CBC 3485703 MCV 96.9 fL 08/01/2013 CBC 3104445 MCH 31.2 pg 08/01/2013 CBC 6136037 MCHC 32.2 g/dL 08/01/2013 CBC 6650626 PLT 289 10e9/L 08/01/2013 CBC 0266709 MPV 9.6 fL 08/01/2013 CBC 0062153 JOSEFINA % 56.0 % 08/01/2013 CBC 1035238 LY % 31.6 % 08/01/2013 CBC 0058180 MON % 10.0 % 08/01/2013 CBC 9784072 EOS % 1.7 % 08/01/2013 CBC 4921652 BASO % 0.7 % 08/01/2013 CBC 2784584 RDW 15.5 % 08/01/2013 CBC 9497523 ABS JOSEFINA 4.20 10e9/L 08/01/2013 CBC 1632428 ABS LYMPH 2.37 10e9/L 08/01/2013 CBC 9203177 ABS MONO 0.75 10e9/L 08/01/2013 CBC 9288204 ABS EOS 0.13 10e9/L 08/01/2013 CBC 4101727 ABS BASO 0.05 10e9/L 08/01/2013 CBC 8024212 RDW-SD 53.5 fL 08/01/2013 TSH 7795184 TSH 6.497 uIU/ML 08/01/2013 CHEM 14 3604741 AST 53 U/L 08/01/2013 CHEM 14 1665898 ALT 36 IU/L 08/01/2013 CHEM 14 4721768 BUN 16 MG/DL 08/01/2013 CHEM 14 6100910 ALBUMIN 4.2 GM/DL 08/01/2013 CHEM 14 2017666 CHLORIDE 103 MMOL/L 08/01/2013 CHEM 14 6781079 BILI TOT 0.4 MG/DL 08/01/2013 CHEM 14 7337117 ALK PHOS 113 U/L 08/01/2013 CHEM 14 3815423 SODIUM 139 MMOL/L 08/01/2013 CHEM 14 8476519 CREATININE 0.83 MG/DL 08/01/2013 CHEM 14 8113811 CALCIUM 9.5 MG/DL 08/01/2013 CHEM 14 7005742 POTASSIUM 4.2 MMOL/L 08/01/2013 CHEM 14 4922122 PROT TOT 6.4 GM/DL 08/01/2013 CHEM 14 0646532 GLUCOSE 135 MG/DL 08/01/2013 CHEM 14 7423980 BICARB 26 MMOL/L 08/01/2013 CHEM 14 6600424 ANION GAP 10 MEQ/L 08/01/2013 A1C HPLC 9417947 A1C HPLC 74319-9 8.1 % 08/01/2013 GFR CALC 9915394 GFR AA >60 ML/MIN 08/01/2013 GFR CALC 3335158 GFR NON-AA >60 ML/MIN 08/01/2013 CBC 0774038 WBC 10.4 10e9/L 03/21/2013 CBC 6171028 RBC 4.27 10e12/L 03/21/2013 CBC 8378808 HGB 13.1 g/dL 03/21/2013 CBC 1843952 HCT DET 41.2 % 03/21/2013 CBC 5226299 MCV 96.5 fL 03/21/2013 CBC 9856341 MCH 30.7 pg 03/21/2013 CBC 1891227 MCHC 31.8 g/dL 03/21/2013 CBC 8029731 PLT 398 10e9/L 03/21/2013 CBC 7350619 MPV 10.9 fL 03/21/2013 CBC 4313873 JOSEFINA % 65.4 % 03/21/2013 CBC 9315726 LY % 25.6 % 03/21/2013 CBC 8196082 MON % 6.7 % 03/21/2013 CBC 1293883 EOS % 1.9 % 03/21/2013 CBC 5516660 BASO % 0.4 % 03/21/2013 CBC 4391850 RDW 14.2 % 03/21/2013 CBC 5911963 ABS JOSEFINA 6.80 10e9/L 03/21/2013 CBC 7824803 ABS LYMPH 2.66 10e9/L 03/21/2013 CBC 8302728 ABS MONO 0.70 10e9/L 03/21/2013 CBC 5022424 ABS EOS 0.20 10e9/L 03/21/2013 CBC 7466610 ABS BASO 0.04 10e9/L 03/21/2013 CBC 5075264 RDW-SD 48.7 fL 03/21/2013 GFR CALC 3239833 GFR AA 57.0L ML/MIN 03/21/2013 GFR CALC 6073815 GFR NON-AA 47.0L ML/MIN 03/21/2013 CHEM 14 3198701 AST 22 U/L 03/21/2013 CHEM 14 8117674 ALT 22 IU/L 03/21/2013 CHEM 14 1504365 BUN 29 MG/DL 03/21/2013 CHEM 14 9792012 ALBUMIN 4.1 GM/DL 03/21/2013 CHEM 14 8891946 CHLORIDE 99 MMOL/L 03/21/2013 CHEM 14 1197258 BILI TOT 0.3 MG/DL 03/21/2013 CHEM 14 4495998 ALK PHOS 123 U/L 03/21/2013 CHEM 14 9550419 SODIUM 137 MMOL/L 03/21/2013 CHEM 14 5100817 CREATININE 1.16 MG/DL 03/21/2013 CHEM 14 3327625 CALCIUM 9.1 MG/DL 03/21/2013 CHEM 14 5667556 POTASSIUM 4.1 MMOL/L 03/21/2013 CHEM 14 4491842 PROT TOT 6.7 GM/DL 03/21/2013 CHEM 14 0344103 GLUCOSE 209 MG/DL 03/21/2013 CHEM 14 5989157 BICARB 26 MMOL/L 03/21/2013 CHEM 14 6712656 ANION GAP 12 MEQ/L 03/21/2013 A1C HPLC 0191474 A1C HPLC 07667-3 6.6 % 03/21/2013 GFR CALC 2086207 GFR AA >60 ML/MIN 01/17/2013 GFR CALC 9967423 GFR NON-AA 51.0L ML/MIN 01/17/2013 CHEM 14 4255505 AST 18 U/L 01/17/2013 CHEM 14 1394923 ALT 32 IU/L 01/17/2013 CHEM 14 1560527 BUN 22 MG/DL 01/17/2013 CHEM 14 8334507 ALBUMIN 4.1 GM/DL 01/17/2013 CHEM 14 8431512 CHLORIDE 99 MMOL/L 01/17/2013 CHEM 14 3980616 BILI TOT 0.3 MG/DL 01/17/2013 CHEM 14 7182138 ALK PHOS 110 U/L 01/17/2013 CHEM 14 8975695 SODIUM 138 MMOL/L 01/17/2013 CHEM 14 6475412 CREATININE 1.09 MG/DL 01/17/2013 CHEM 14 9067441 CALCIUM 8.8 MG/DL 01/17/2013 CHEM 14 2427417 POTASSIUM 3.5 MMOL/L 01/17/2013 CHEM 14 2411995 PROT TOT 6.1 GM/DL 01/17/2013 CHEM 14 0386480 GLUCOSE 163 MG/DL 01/17/2013 CHEM 14 4916424 BICARB 29 MMOL/L 01/17/2013 CHEM 14 2302697 ANION GAP 10 MEQ/L 01/17/2013 CBC 1309806 WBC 8.0 10e9/L 01/17/2013 CBC 2793689 RBC 3.85 10e12/L 01/17/2013 CBC 4339382 HGB 12.6 g/dL 01/17/2013 CBC 2742855 HCT DET 38.0 % 01/17/2013 CBC 9245271 MCV 98.7 fL 01/17/2013 CBC 9315794 MCH 32.7 pg 01/17/2013 CBC 9034726 MCHC 33.2 g/dL 01/17/2013 CBC 7392374 PLT 325 10e9/L 01/17/2013 CBC 2515665 MPV 10.4 fL 01/17/2013 CBC 3625715 JOSEFINA % 64.6 % 01/17/2013 CBC 2715722 LY % 27.0 % 01/17/2013 CBC 0434348 MON % 6.8 % 01/17/2013 CBC 1279221 EOS % 1.4 % 01/17/2013 CBC 9576138 BASO % 0.2 % 01/17/2013 CBC 4962572 RDW 15.5 % 01/17/2013 CBC 8064973 ABS JOSEFINA 5.17 10e9/L 01/17/2013 CBC 4872197 ABS LYMPH 2.16 10e9/L 01/17/2013 CBC 9710733 ABS MONO 0.54 10e9/L 01/17/2013 CBC 2170955 ABS EOS 0.11 10e9/L 01/17/2013 CBC 7898374 ABS BASO 0.02 10e9/L 01/17/2013 CBC 2079842 RDW-SD 54.3 fL 01/17/2013 TSH 4840171 TSH 3.683 uIU/ML 12/31/2012 FREE T4 7424775 FREE T4 1.34 NG/DL 12/31/2012 A1C HPLC 5977957 A1C HPLC 42906-5 6.6 % 12/21/2012 CHEM 14 3883487 AST 16 U/L 12/20/2012 CHEM 14 8989033 ALT 36 IU/L 12/20/2012 CHEM 14 1562731 BUN 26 MG/DL 12/20/2012 CHEM 14 3756130 ALBUMIN 4.2 GM/DL 12/20/2012 CHEM 14 0314414 CHLORIDE 103 MMOL/L 12/20/2012 CHEM 14 0277774 BILI TOT 0.4 MG/DL 12/20/2012 CHEM 14 1064915 ALK PHOS 107 U/L 12/20/2012 CHEM 14 1836547 SODIUM 141 MMOL/L 12/20/2012 CHEM 14 6898404 CREATININE 0.73 MG/DL 12/20/2012 CHEM 14 7170664 CALCIUM 9.2 MG/DL 12/20/2012 CHEM 14 4436341 POTASSIUM 4.3 MMOL/L 12/20/2012 CHEM 14 0154492 PROT TOT 6.2 GM/DL 12/20/2012 CHEM 14 4389943 GLUCOSE 135 MG/DL 12/20/2012 CHEM 14 7971900 BICARB 32 MMOL/L 12/20/2012 CHEM 14 1911908 ANION GAP 6 MEQ/L 12/20/2012 GFR CALC 7600780 GFR AA >60 ML/MIN 12/20/2012 GFR CALC 4036418 GFR NON-AA >60 ML/MIN 12/20/2012 CBC 6983002 WBC 8.4 10e9/L 12/20/2012 CBC 0320007 RBC 4.30 10e12/L 12/20/2012 CBC 0099948 HGB 13.9 g/dL 12/20/2012 CBC 3481773 HCT DET 41.8 % 12/20/2012 CBC 5758431 MCV 97.2 fL 12/20/2012 CBC 3102961 MCH 32.3 pg 12/20/2012 CBC 3470266 MCHC 33.3 g/dL 12/20/2012 CBC 6990923 PLT 358 10e9/L 12/20/2012 CBC 9630245 MPV 10.2 fL 12/20/2012 CBC 7667624 JOSEFINA % 63.3 % 12/20/2012 CBC 9729171 LY % 28.9 % 12/20/2012 CBC 4080712 MON % 6.3 % 12/20/2012 CBC 2630587 EOS % 1.1 % 12/20/2012 CBC 5052892 BASO % 0.4 % 12/20/2012 CBC 9293995 RDW 15.3 % 12/20/2012 CBC 4376575 ABS JOSEFINA 5.32 10e9/L 12/20/2012 CBC 3961801 ABS LYMPH 2.43 10e9/L 12/20/2012 CBC 4758190 ABS MONO 0.53 10e9/L 12/20/2012 CBC 5230736 ABS EOS 0.09 10e9/L 12/20/2012 CBC 6886186 ABS BASO 0.03 10e9/L 12/20/2012 CBC 3101190 RDW-SD 51.9 fL 12/20/2012 GFR CALC 3950122 GFR AA >60 ML/MIN 02/01/2012 GFR CALC 1906465 GFR NON-AA >60 ML/MIN 02/01/2012 CBC 6656731 WBC 10.8 10e9/L 02/01/2012 CBC 3354578 RBC 3.86 10e12/L 02/01/2012 CBC 5511695 HGB 11.8 g/dL 02/01/2012 CBC 1408838 HCT DET 36.3 % 02/01/2012 CBC 6675270 MCV 94.0 fL 02/01/2012 CBC 8106428 MCH 30.6 pg 02/01/2012 CBC 0989262 MCHC 32.5 g/dL 02/01/2012 CBC 8636816 PLT 321 10e9/L 02/01/2012 CBC 7581133 MPV 10.3 fL 02/01/2012 CBC 0730847 JOSEFINA % 75.9 % 02/01/2012 CBC 2909647 LY % 16.1 % 02/01/2012 CBC 0078157 MON % 6.8 % 02/01/2012 CBC 2738525 EOS % 1.0 % 02/01/2012 CBC 0084198 BASO % 0.2 % 02/01/2012 CBC 6011992 RDW 14.2 % 02/01/2012 CBC 2158917 ABS JOSEFINA 8.20 10e9/L 02/01/2012 CBC 1570606 ABS LYMPH 1.74 10e9/L 02/01/2012 CBC 4907936 ABS MONO 0.73 10e9/L 02/01/2012 CBC 1965406 ABS EOS 0.11 10e9/L 02/01/2012 CBC 8689424 ABS BASO 0.02 10e9/L 02/01/2012 CBC 4097973 RDW-SD 47.2 fL 02/01/2012 BRAIN PEP 8438275 BRAIN PEP FOOTNOTE pg/mL 02/01/2012 CHEM 14 6132389 AST 26 U/L 02/01/2012 CHEM 14 1264383 ALT 36 IU/L 02/01/2012 CHEM 14 7156722 BUN 29 MG/DL 02/01/2012 CHEM 14 8983055 ALBUMIN 3.7 GM/DL 02/01/2012 CHEM 14 5721847 CHLORIDE 105 MMOL/L 02/01/2012 CHEM 14 6006929 BILI TOT 0.2 MG/DL 02/01/2012 CHEM 14 9013186 ALK PHOS 89 U/L 02/01/2012 CHEM 14 3479743 SODIUM 141 MMOL/L 02/01/2012 CHEM 14 3173297 CREATININE 0.76 MG/DL 02/01/2012 CHEM 14 5672340 CALCIUM 9.0 MG/DL 02/01/2012 CHEM 14 2797819 POTASSIUM 4.8 MMOL/L 02/01/2012 CHEM 14 3889785 PROT TOT 5.5 GM/DL 02/01/2012 CHEM 14 6256547 GLUCOSE 83 MG/DL 02/01/2012 CHEM 14 7512125 BICARB 31 MMOL/L 02/01/2012 CHEM 14 9605950 ANION GAP 5 MEQ/L 02/01/2012 GFR CALC 2049504 GFR AA >60 ML/MIN 11/30/2011 GFR CALC 1342150 GFR NON-AA >60 ML/MIN 11/30/2011 CHEM 14 0545277 AST 14 U/L 11/30/2011 CHEM 14 2034982 ALT 17 IU/L 11/30/2011 CHEM 14 9528474 BUN 12 MG/DL 11/30/2011 CHEM 14 9280965 ALBUMIN 4.3 GM/DL 11/30/2011 CHEM 14 6512570 CHLORIDE 104 MMOL/L 11/30/2011 CHEM 14 5266549 BILI TOT 0.3 MG/DL 11/30/2011 CHEM 14 9968149 ALK PHOS 83 U/L 11/30/2011 CHEM 14 0820080 SODIUM 143 MMOL/L 11/30/2011 CHEM 14 4691221 CREATININE 0.71 MG/DL 11/30/2011 CHEM 14 9855989 CALCIUM 9.7 MG/DL 11/30/2011 CHEM 14 4999075 POTASSIUM 4.4 MMOL/L 11/30/2011 CHEM 14 1025219 PROT TOT 6.3 GM/DL 11/30/2011 CHEM 14 2934738 GLUCOSE 107 MG/DL 11/30/2011 CHEM 14 5496309 BICARB 27 MMOL/L 11/30/2011 CHEM 14 7538205 ANION GAP 12 MEQ/L 11/30/2011 CBC 1988771 WBC 8.7 10e9/L 11/30/2011 CBC 2737879 RBC 4.40 10e12/L 11/30/2011 CBC 3234652 HGB 13.6 g/dL 11/30/2011 CBC 2007521 HCT DET 41.0 % 11/30/2011 CBC 3470141 MCV 93.2 fL 11/30/2011 CBC 9414647 MCH 30.9 pg 11/30/2011 CBC 1416174 MCHC 33.2 g/dL 11/30/2011 CBC 7068026 PLT 328 10e9/L 11/30/2011 CBC 1302624 MPV 10.7 fL 11/30/2011 CBC 4625838 JOSEFINA % 68.4 % 11/30/2011 CBC 0137536 LY % 22.4 % 11/30/2011 CBC 8386145 MON % 7.9 % 11/30/2011 CBC 2773822 EOS % 1.1 % 11/30/2011 CBC 3691518 BASO % 0.2 % 11/30/2011 CBC 2240008 RDW 13.5 % 11/30/2011 CBC 4561579 ABS JOSEFINA 5.95 10e9/L 11/30/2011 CBC 4667634 ABS LYMPH 1.95 10e9/L 11/30/2011 CBC 6531639 ABS MONO 0.69 10e9/L 11/30/2011 CBC 2591677 ABS EOS 0.10 10e9/L 11/30/2011 CBC 6282519 ABS BASO 0.02 10e9/L 11/30/2011 CBC 9552699 RDW-SD 45.0 fL 11/30/2011 URINALYSIS NONAUTO W/O SCOPE 62282 Specific [place] 1.030 DateTime(Free Text in Aprima) URINALYSIS NONAUTO W/O SCOPE 98634 PH 5 DateTime(Free Text in Aprima) URINALYSIS NONAUTO W/O SCOPE 55388 GLUCOSE neg DateTime( Free Text in Aprima) URINALYSIS NONAUTO W/O SCOPE 28703 Protein neg DateTime( Free Text in Aprima) URINALYSIS NONAUTO W/O SCOPE 51861 Blood neg DateTime(Free Text in Aprima) URINALYSIS NONAUTO W/O SCOPE 68600 Bilirubin neg DateTime(Free Text in Aprima) URINALYSIS NONAUTO W/O SCOPE 72115 Ketones neg DateTime( Free Text in Aprima) URINALYSIS NONAUTO W/O SCOPE 90104 Urobilinogen neg DateTime(Free Text in Aprima) URINALYSIS NONAUTO W/O SCOPE 16138 Nitrite neg DateTime( Free Text in Aprima) URINALYSIS NONAUTO W/O SCOPE 15869 Leukocytes neg DateTime(Free Text in Aprima) UA 56442 Specific [place] 1.010 DateTime(Free Text in Aprima ) UA 81272 PH 5 DateTime(Free Text in Aprima) UA 70963 GLUCOSE N DateTime(Free Text in Aprima) UA 86801 Protein N DateTime(Free Text in Aprima) UA 79197 Blood TRACE DateTime(Free Text in Aprima) UA 43617 Bilirubin N DateTime(Free Text in Aprima) UA 98131 Ketones N DateTime(Free Text in Aprima) UA 62963 Urobilinogen N DateTime(Free Text in Aprima) UA 59902 Nitrite N DateTime(Free Text in Aprima) UA 68042 Leukocytes N DateTime(Free Text in Aprima) URINALYSIS NONAUTO W/O SCOPE 45259 Specific [place] 1.010 DateTime(Free Text in Aprima) URINALYSIS NONAUTO W/O SCOPE 91217 PH 7.5 DateTime(Free Text in Aprima) URINALYSIS NONAUTO W/O SCOPE 76526 GLUCOSE DateTime( Free Text in Aprima) URINALYSIS NONAUTO W/O SCOPE 71622 Protein trace DateTime(Free Text in Aprima) URINALYSIS NONAUTO W/O SCOPE 52694 Blood DateTime(Free Text in Aprima) URINALYSIS NONAUTO W/O SCOPE 38720 Bilirubin DateTime( Free Text in Aprima) URINALYSIS NONAUTO W/O SCOPE 48364 Ketones DateTime( Free Text in Aprima) URINALYSIS NONAUTO W/O SCOPE 26987 Urobilinogen DateTime (Free Text in Aprima) URINALYSIS NONAUTO W/O SCOPE 28627 Nitrite DateTime( Free Text in Aprima) URINALYSIS NONAUTO W/O SCOPE 37204 Leukocytes DateTime( Free Text in Aprima) URINALYSIS NONAUTO W/O SCOPE 01180 Specific [place] 1.010 DateTime(Free Text in Aprima) URINALYSIS NONAUTO W/O SCOPE 90838 PH 6 DateTime(Free Text in Aprima) URINALYSIS NONAUTO W/O SCOPE 37843 GLUCOSE DateTime( Free Text in Aprima) URINALYSIS NONAUTO W/O SCOPE 86089 Protein DateTime( Free Text in Aprima) URINALYSIS NONAUTO W/O SCOPE 33769 Blood DateTime(Free Text in Aprima) URINALYSIS NONAUTO W/O SCOPE 80425 Bilirubin DateTime( Free Text in Aprima) URINALYSIS NONAUTO W/O SCOPE 54066 Ketones DateTime( Free Text in Aprima) URINALYSIS NONAUTO W/O SCOPE 79141 Urobilinogen DateTime (Free Text in Aprima) URINALYSIS NONAUTO W/O SCOPE 00146 Nitrite DateTime( Free Text in Aprima) URINALYSIS NONAUTO W/O SCOPE 65432 Leukocytes DateTime( Free Text in Aprima) UA 51008 Specific [place] 1.020 DateTime(Free Text in Aprima ) UA 05664 PH 6 DateTime(Free Text in Aprima) UA 45139 GLUCOSE neg DateTime(Free Text in Aprima) UA 73327 Protein neg DateTime(Free Text in Aprima) UA 92928 Blood neg DateTime(Free Text in Aprima) UA 95843 Bilirubin neg DateTime(Free Text in Aprima) UA 92398 Ketones neg DateTime(Free Text in Aprima) UA 78344 Urobilinogen neg DateTime(Free Text in Aprima) UA 13751 Nitrite neg DateTime(Free Text in Aprima) UA 27206 Leukocytes neg DateTime(Free Text in Aprima) Review [...] exam 05/17/2012 None Full Exam - General 1995 Abdomen abdominal exam Overall: no tenderness 05/17/2012 None Full Exam - General 1995 Abdomen [...] age 1002/27/2012 None Full Exam - General 1995 Eyes conjunctiva /eyelids Overall: conjunctiva clear 02/27/2012 [...] erythematous 08/09/2011 None Full Exam - General 1995 [...] Codes Date URINALYSIS NONAUTO W/O SCOPE CPT-4: 69279 12/14/2017 URINALYSIS NONAUTO W/O SCOPE CPT-4: 35298 11/27/2017 PPPS, SUBSEQ VISIT CPT -4: G0439 10/27/2017 GLUCOSE MONITORING CONT CPT-4: 44720 09/27/2017 URINALYSIS NONAUTO W/O SCOPE CPT-4: 24456 06/30/2017 URINALYSIS NONAUTO W/O SCOPE CPT-4: 23202 11/25/2016 URINALYSIS NONAUTO W/O SCOPE CPT-4: 87844 10/21/2016 URINALYSIS NONAUTO W/O SCOPE CPT-4: 47638 06/24/2016 URINALYSIS NONAUTO W/O SCOPE CPT-4: 17682 04/11/2016 ADMIN PNEUMOCOCCAL VACCINE SNOMED CT: [id number] CPT-4: G0009 02/26/2016 PNEUMOCOCCAL VACC 13 ANURADHA IM Formatting Model/CDA Sections, Assigned to/Jada Velazquez SNOMED CT: [id number] CPT-4: 36650Nlrspsz 02/26/2016 URINALYSIS NONAUTO W/O SCOPE CPT-4: 03503 02/10/2016 URINALYSIS NONAUTO W/O SCOPE CPT-4: 78371 11/27/2015 URINALYSIS NONAUTO W/O SCOPE CPT-4: 90098 11/02/2015 INITIAL PREVENTIVE EXAM CPT-4: G0402 09/29/2015 URINALYSIS NONAUTO W/O SCOPE CPT-4: 48782 07/20/2015 TRIAMCINOLONE ACET INJ NOS CPT-4: J3301 06/26/2015 URINALYSIS NONAUTO W/O SCOPE CPT-4: 37555 11/05/2014 URINALYSIS NONAUTO W/O SCOPE CPT-4: 35264 04/21/2014 CULTURE AEROBIC IDENTIFY CPT-4: 21507 12/12/2013 URINALYSIS NONAUTO W/O SCOPE CPT-4: 40008 11/18/2013 ROUTINE VENIPUNCTURE CPT-4: 61564 09/10/2013 ROUTINE VENIPUNCTURE CPT-4: 16409 08/01/2013 URINALYSIS NONAUTO W/O SCOPE CPT-4: 17297 06/28/2013 TRIAMCINOLONE ACET INJ NOS CPT-4: J3301 05/07/2013 DRAIN/INJECT JOINT/BURSA CPT-4: 67414 05/07/2013 ROUTINE VENIPUNCTURE CPT-4: 04233 03/21/2013 ROUTINE VENIPUNCTURE CPT-4: 22052 01/17/2013 URINALYSIS NONAUTO W/O SCOPE CPT-4: 85721 01/01/2013 ROUTINE VENIPUNCTURE CPT-4: 00963 12/31/2012 ROUTINE VENIPUNCTURE CPT-4: 81986 12/20/2012 URINALYSIS NONAUTO W/O SCOPE CPT-4: 86095 11/05/2012 DRAIN/INJECT JOINT/BURSA CPT-4: 52701 09/21/2012 TRIAMCINOLONE ACET INJ NOS CPT-4: J3301 09/21/2012 URINALYSIS NONAUTO W/O SCOPE CPT-4: 89126 07/19/2012 TRIAMCINOLONE ACET INJ NOS CPT-4: J3301 07/06/2012 Pneumococcal Polysaccharide Vaccine, 23-Valent, Ad CPT-4: 50513 06/07/2012 IMMUNIZATION ADMIN CPT -4: 12986 06/07/2012 TRIAMCINOLONE ACET INJ NOS CPT-4: J3301 05/02/2012 ROUTINE VENIPUNCTURE CPT-4: 09021 02/01/2012 URINALYSIS NONAUTO W/O SCOPE CPT-4: 04947 02/01/2012 TRIAMCINOLONE ACET INJ NOS CPT-4: J3301 12/14/2011 INJ TRIGGER POINT 1/2 MUSCL CPT-4: 13851 12/14/2011 PROMETHAZINE HCL INJECTION CPT-4: J2550 11/30/2011 ROUTINE VENIPUNCTURE CPT-4: 01484 11/30/2011 TRIAMCINOLONE ACET INJ NOS CPT-4: J3301 08/01/2011 DRAIN/INJECT JOINT/BURSA CPT-4: 61905 08/01/2011 THER/PROPH/DIAG INJ SC/IM CPT-4: 81469 04/18/2011 TRIAMCINOLONE ACET INJ NOS CPT-4: J3301 04/18/2011 Vital Signs Date Vital 11/27/2017 Blood Pressure 1: 158/78 Code : 8480-6 BMI: 40.8 Code : 12193-0 Heart Rate 1 : 100 bpm Height: 5'2" SpO2: 95% Weight: 223 lbs 10/27/2017 Blood Pressure 1: 146/70 Code : 8480-6 BMI: 41.3 Code : 57322-7 Heart Rate 1 : 82 bpm Height: 5'2" SpO2: 99% Waist Measure (cm): 119 cm Weight: 226 lbs 09/15/2017 Blood Pressure 1: 136/66 Code : 8480-6 BMI: 41.5 Code : 22364-3 Heart Rate 1 : 94 bpm Height: 5'2" SpO2: 96% Weight: 227 lbs 08/18/2017 Blood Pressure 1: 120/68 Code : 8480-6 BMI: 41.5 Code : 18808-2 Heart Rate 1 : 87 bpm Height: 5'2" SpO2: 94% Weight: 227 lbs 08/03/2017 Blood Pressure 1: 132/72 Code : 8480-6 BMI: 41.5 Code : 80797-9 Heart Rate 1 : 93 bpm Height: 5'2" SpO2: 95% Weight: 227 lbs 07/27/2017 Blood Pressure 1: 128/84 Code : 8480-6 BMI: 41.5 Code : 35491-0 Heart Rate 1 : 91 bpm Height: 5'2" SpO2: 98% Weight: 227 lbs 06/13/2017 Blood Pressure 1: 136/84 Code : 8480-6 BMI: 42.6 Code : 15999-1 Heart Rate 1 : 91 bpm Height: 5'2" SpO2: 94% Weight: 233 lbs 04/21/2017 Blood Pressure 1: 142/84 Code : 8480-6 BMI: 42.8 Code : 62636-9 Heart Rate 1 : 89 bpm Height: 5'2" SpO2: 94% Weight: 234 lbs 04/18/2017 Blood Pressure 1: 140/86 Code : 8480-6 BMI: 42.8 Code : 85171-2 Heart Rate 1 : 89 bpm Height: 5'2" SpO2: 97% Weight: 234 lbs 03/27/2017 Blood Pressure 1: 148/76 Code : 8480-6 BMI: 42.6 Code : 61920-2 Heart Rate 1 : 92 bpm Height: [...] Code : 8480-6 BMI: 44.3 Code : 67644-4 Heart Rate 1 : 90 bpm Height: 5'2" SpO2: 96% Weight: 242 lbs 01/30/2017 Blood Pressure 1: 132/72 Code : 8480-6 Heart Rate 1: 97 bpm Height: 5'2" SpO2: 96% Weight: 01/16/2017 Blood Pressure 1: 138/76 Code : 8480-6 BMI: 43.3 Code : 41061-8 Heart Rate 1 : 84 bpm Height: 5'2" SpO2: 99% Weight: 237 lbs 12/13/2016 Blood Pressure 1: 144/78 Code : 8480-6 Heart Rate 1: 96 bpm Height: 5'2" SpO2: 98% Temperature: 36.6 (C) / 97.9 (F) Weight: 11/11/2016 Blood Pressure 1: 144/80 Code : 8480-6 BMI: 43.0 Code : 88121-8 Heart Rate 1 : 89 bpm Height: 5'2" SpO2: 94% Temperature: 36.1 (C) / 97.0 (F) Weight: 235 lbs 10/28/2016 Blood Pressure 1: 156/82 Code : 8480-6 BMI: 43.9 Code : 23130-2 Heart Rate 1 : 78 bpm Height: [...] Code : 8480-6 BMI: 42.4 Code : 97164-0 Heart Rate 1 : 95 bpm Height: 5'2" SpO2: 98% Weight: 232 lbs 08/09/2016 Blood Pressure 1: 138/80 Code : 8480-6 BMI: 41.0 Code : 86227-7 Heart Rate 1 : 98 bpm Height: 5'2" SpO2: 97% Weight: 224 lbs 07/26/2016 Blood Pressure 1: 148/82 Code : 8480-6 BMI: 42.4 Code : 65491-8 Heart Rate 1 : 89 bpm Height: 5'2" SpO2: 97% Weight: 232 lbs 05/24/2016 Blood Pressure 1: 146/72 Code : 8480-6 BMI: 42.4 Code : 23059-2 Heart Rate 1 : 89 bpm Height: 5'2" SpO2: 99% Weight: 232 lbs 04/19/2016 Blood Pressure 1: 130/88 Code : 8480-6 BMI: 42.4 Code : 01093-8 Heart Rate 1 : 88 bpm Height: 5'2" SpO2: 98% Weight: 232 lbs 04/11/2016 Blood Pressure 1: 140/80 Code : 8480-6 BMI: 41.7 Code : 41049-8 Heart Rate 1 : 97 bpm Height: 5'2" SpO2: 95% Weight: 228 lbs 03/21/2016 Blood Pressure 1: 138/80 Code : 8480-6 BMI: 44.4 Code : 49023-5 Height: 5'2" Weight: 243 lbs 03/11/2016 Blood Pressure 1: 138/82 Code : 8480-6 BMI: 44.4 Code : 06065-5 Heart Rate 1 : 86 bpm Height: 5'2" SpO2: 95% Weight: 243 lbs 02/26/2016 Blood Pressure 1: 130/82 Code : 8480-6 BMI: 43.9 Code : 49836-9 Heart Rate 1 : 86 bpm Height: 5'2" SpO2: 97% Weight: 240 lbs 02/02/2016 Blood Pressure 1: 136/86 Code : 8480-6 Heart Rate 1: 56 bpm Height: SpO2: 96% Weight: 12/17/2015 Blood Pressure 1: 140/80 Code : 8480-6 BMI: 40.2 Code : 71296-0 Heart Rate 1 : 100 bpm Height: 5'2" SpO2: 99% Weight: 220 lbs 12/08/2015 Blood Pressure 1: 132/86 Code : 8480-6 Heart Rate 1: 100 bpm Height: SpO2: 97% Weight: 11/27/2015 Blood Pressure 1: 128/82 Code : 8480-6 BMI: 39.3 Code : 32496-5 Heart Rate 1 : 112 bpm Height: 5'2" SpO2: 96% Weight: 215 lbs 11/12/2015 Blood Pressure 1: 168/88 Code : 8480-6 Heart Rate 1: 106 bpm Height: 5'2" SpO2: 96% Weight: 11/10/2015 Blood Pressure 1: 156/80 Code : 8480-6 Heart Rate 1: 94 bpm Height: 5'2" SpO2: 96% Weight: 10/27/2015 Blood Pressure 1: 142/76 Code : 8480-6 BMI: 40.8 Code : 90062-7 Heart Rate 1 : 86 bpm Height: 5'2" SpO2: 97% Weight: 223 lbs 09/29/2015 Blood Pressure 1: 132/88 Code : 8480-6 BMI: 41.7 Code : 61973-2 Heart Rate 1 : 104 bpm Height: 5'2" SpO2: 94% Weight: 228 lbs 09/22/2015 Blood Pressure 1: 130/80 Code : 8480-6 BMI: 41.7 Code : 74412-5 Heart Rate 1 : 89 bpm Height: 5'2" SpO2: 97% Weight: 228 lbs 09/01/2015 Blood Pressure 1: 138/88 Code : 8480-6 BMI: 40.6 Code : 92541-5 Heart Rate 1 : 95 bpm Height: 5'2" SpO2: 95% Weight: 222 lbs 08/10/2015 Blood Pressure 1: 140/82 Code : 8480-6 BMI: 41.0 Code : 41534-8 Heart Rate 1 : 84 bpm Height: 5'2" SpO2: 97% Weight: 224 lbs 06/26/2015 Blood Pressure 1: 152/72 Code : 8480-6 BMI: 41.2 Code : 07354-6 Heart Rate 1 : 92 bpm Height: 5'2" SpO2: 96% Weight: 225 lbs 04/14/2015 Blood Pressure 1: 158/86 Code : 8480-6 BMI: 41.2 Code : 95739-1 Heart Rate 1 : 63 bpm Height: 5'2" SpO2: 93% Weight: 225 lbs 03/03/2015 Blood Pressure 1: 152/80 Code : 8480-6 BMI: 40.1 Code : 44083-3 Heart Rate 1 : 101 bpm Height: 5'2" SpO2: 97% Weight: 219 lbs 01/15/2015 Blood Pressure 1: 127/76 Code : 8480-6 BMI: 40.6 Code : 23163-2 Heart Rate 1 : 109 bpm Height: 5'2" SpO2: 97% Weight: 222 lbs 01/01/2015 Blood Pressure 1: 136/64 Code : 8480-6 BMI: 40.4 Code : 30348-6 Heart Rate 1 : 94 bpm Height: 5'2" SpO2: 96% Weight: 221 lbs 12/25/2014 Blood Pressure 1: 146/80 Code : 8480-6 Heart Rate 1: 95 bpm Height: 5'2" SpO2: 94% 11/04/2014 Blood Pressure 1: 110/70 Code : 8480-6 BMI: 40.2 Code : 67672-9 Heart Rate 1 : 878 bpm Height: 5'2" SpO2: 97% Weight: 220 lbs 09/08/2014 Blood Pressure 1: 142/78 Code : 8480-6 BMI: 39.5 Code : 33052-4 Heart Rate 1 : 97 bpm Height: 5'2" SpO2: 98% Weight: 216 lbs 08/29/2014 Blood Pressure 1: 140/90 Code : 8480-6 Blood Pressure 2: 120/70 Code: 8480-6 BMI: 40.2 Code: 72077-9 Heart Rate 1: 88 bpm Height: 5'2" Weight: 220 lbs 06/30/2014 Blood Pressure 1: 132/74 Code : 8480-6 BMI: 39.1 Code : 10084-8 Heart Rate 1 : 76 bpm Height: 5'2" Weight: 214 lbs 06/12/2014 Blood Pressure 1: 118/76 Code : 8480-6 BMI: 40.4 Code : 12041-0 Heart Rate 1 : 86 bpm Height: 5'2" SpO2: 96% Weight: 221 lbs 05/26/2014 Blood Pressure 1: 128/78 Code : 8480-6 BMI: 39.5 Code : 89129-8 Heart Rate 1 : 76 bpm Height: 5'2" Weight: 216 lbs 04/15/2014 Blood Pressure 1: 144/72 Code : 8480-6 BMI: 40.8 Code : 11928-4 Heart Rate 1 : 60 bpm Height: 5'2" Weight: 223 lbs 03/25/2014 Blood Pressure 1: 118/72 Code : 8480-6 BMI: 41.2 Code : 45444-0 Heart Rate 1 : 80 bpm Height: 5'2" Weight: 225 lbs 03/03/2014 Blood Pressure 1: 138/86 Code : 8480-6 BMI: 41.5 Code : 70319-9 Heart Rate 1 : 104 bpm Height: 5'2" Temperature: 36.1 (C) / 97.0 (F) Weight: 227 lbs 02/13/2014 Blood Pressure 1: 142/88 Code : 8480-6 BMI: 40.8 Code : 90118-6 Heart Rate 1 : 88 bpm Height: 5'2" Weight: 223 lbs 01/27/2014 Blood Pressure 1: 124/68 Code : 8480-6 BMI: 39.9 Code : 79016-3 Heart Rate 1 : 89 bpm Height: 5'2" SpO2: 94% Weight: 218 lbs 12/26/2013 Blood Pressure 1: 108/52 Code : 8480-6 BMI: 41.2 Code : 09688-1 Heart Rate 1 : 96 bpm Height: 5'2" Weight: 225 lbs 12/12/2013 Blood Pressure 1: 158/88 Code : 8480-6 BMI: 42.6 Code : 87548-9 Heart Rate 1 : 80 bpm Height: 5'2" Weight: 233 lbs 11/14/2013 Blood Pressure 1: 120/60 Code : 8480-6 BMI: 42.4 Code : 45716-0 Heart Rate 1 : 96 bpm Height: 5'2" Temperature: 5423.3 (C ) / 9794.0 (F) Weight: 232 lbs 10/21/2013 Blood Pressure 1: 100/60 Code : 8480-6 BMI: 41.9 Code : 14497-4 Heart Rate 1 : 96 bpm Height: 5'2" Weight: 229 lbs 10/03/2013 Blood Pressure 1: 122/72 Code : 8480-6 BMI: 42.3 Code : 17119-4 Heart Rate 1 : 84 bpm Height: 5'2" Weight: 231 lbs 09/27/2013 Blood Pressure 1: 112/58 Code : 8480-6 Heart Rate 1: 72 bpm SpO2: 93% Temperature: 36.2 (C) / 97.1 (F) Weight: 09/23/2013 Blood Pressure 1: 108/76 Code : 8480-6 BMI: 42.4 Code : 28922-9 Heart Rate 1 : 95 bpm Height: 5'2" SpO2: 96% Weight: 232 lbs 09/20/2013 Blood Pressure 1: 150/88 Code : 8480-6 BMI: 42.4 Code : 61005-8 Heart Rate 1 : 104 bpm Height: 5'2" Weight: 232 lbs 09/10/2013 Blood Pressure 1: 112/62 Code : 8480-6 Heart Rate 1: 88 bpm Weight: 238 lbs 08/19/2013 Blood Pressure 1: 102/58 Code : 8480-6 BMI: 43.7 Code : 04959-3 Heart Rate 1 : 80 bpm Height: 5'2" Weight: 239 lbs 08/12/2013 Blood Pressure 1: 110/60 Code : 8480-6 BMI: 43.3 Code : 81043-5 Heart Rate 1 : 90 bpm Height: 5'2" SpO2: 96% Weight: 236 lbs 8 oz 08/01/2013 Blood Pressure 1: 128/72 Code : 8480-6 BMI: 42.6 Code : 91355-5 Heart Rate 1 : 78 bpm Height: 5'2" SpO2: 97% Weight: 233 lbs 07/19/2013 Blood Pressure 1: 100/60 Code : 8480-6 BMI: 44.3 Code : 38383-2 Heart Rate 1 : 92 bpm Height: 5'2" Temperature: 36.2 (C) / 97.2 (F) Weight: 242 lbs 07/15/2013 Blood Pressure 1: 180/92 Code : 8480-6 Heart Rate 1: 115 bpm SpO2: 98% Weight: 06/27/2013 Blood Pressure 1: 114/64 Code : 8480-6 BMI: 44.1 Code : 02865-4 Heart Rate 1 : 114 bpm Height: 5'2" SpO2: 93% Weight: 241 lbs 06/10/2013 Blood Pressure 1: 174/86 Code : 8480-6 BMI: 44.1 Code : 73577-9 Heart Rate 1 : 132 bpm Height: 5'2" SpO2: 94% Temperature: 35.6 (C) / 96.0 (F) Weight: 241 lbs 05/07/2013 Blood Pressure 1: 160/88 Code : 8480-6 BMI: 43.5 Code : 12071-4 Heart Rate 1 : 108 bpm Height: 5'2" SpO2: 96% Weight: 238 lbs 04/16/2013 Blood Pressure 1: 116/62 Code : 8480-6 BMI: 44.6 Code : 81594-5 Heart Rate 1 : 90 bpm Height: 5'2" SpO2: 94% Weight: 244 lbs 03/21/2013 Blood Pressure 1: 102/64 Code : 8480-6 BMI: 42.8 Code : 50454-0 Height: 5'2" Weight: 234 lbs 02/12/2013 Blood Pressure 1: 130/78 Code : 8480-6 BMI: 42.0 Code : 14675-7 Heart Rate 1 : 100 bpm Height: 5'2" Weight: 229 lbs 8 oz 02/04/2013 Blood Pressure 1: 126/68 Code : 8480-6 BMI: 44.3 Code : 27184-0 Heart Rate 1 : 88 bpm Height: 5'2" Weight: 242 lbs 01/17/2013 Blood Pressure 1: 132/76 Code : 8480-6 Heart Rate 1: 121 bpm SpO2: 97% Weight: 242 lbs 12/31/2012 Blood Pressure 1: 144/90 Code : 8480-6 BMI: 43.0 Code : 30476-2 Heart Rate 1 : 96 bpm Height: 5'2" Temperature: 36.2 (C) / 97.2 (F) Weight: 235 lbs 12/20/2012 Blood Pressure 1: 156/96 Code : 8480-6 BMI: 42.4 Code : 92427-0 Heart Rate 1 : 96 bpm Height: [...] Code : 8480-6 BMI: 38.8 Code : 33289-8 Heart Rate 1 : 96 bpm Height: 5'2" Temperature: 36.3 (C) / 97.3 (F) Weight: 212 lbs 08/23/2012 Blood Pressure 1: 116/72 Code : 8480-6 BMI: 38.3 Code : 18275-7 Heart Rate 1 : 92 bpm Height: 5'2" Weight: 209 lbs 8 oz 08/13/2012 Blood Pressure 1: 140/92 Code : 8480-6 BMI: 37.3 Code : 56436-5 Heart Rate 1 : 104 bpm Height: 5'2" Weight: 204 lbs 08/07/2012 Blood Pressure 1: 148/98 Code : 8480-6 BMI: 36.6 Code : 66831-1 Heart Rate 1 : 102 bpm Height: [...] Code : 8480-6 BMI: 35.3 Code : 46238-0 Heart Rate 1 : 105 bpm Height: [...] december - she was seen by her stiff straw hat washer again in mid 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 She states that she saw her stiff straw hat washer and was to be started on another [...] lesion Alleviating Factors medication 09/10/2013 went to [facility] on Monday and start on Cipro diabetes [...] differently. States she did eat BBQ from [employer] yesterday for lunch. hypertension Quality chronic [...] data Encounters Encounter Performer Location Codes Date ([id number]) 21223 EST. PATIENT, LEVEL III Diagnosis: Dysuria[ICD10: R30.0] Diagnosis: Essential (primary) hypertension[ICD10: I10] Rika Motta MD, [facility] CPT-4: 54773 11/27/2017 ([id number] 47069 EST. PATIENT, LEVEL III Diagnosis: Type 2 diabetes mellitus with hyperglycemia[ICD10: E11.65] Diagnosis: Chronic pain syndrome[ICD10: G89.4] Rika Motta MD, [facility] CPT-4: 00176 09/15/2017 ([id number]) 98989 EST. 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 PATIENT, LEVEL III Diagnosis: Chronic maxillary sinusitis[ICD10: J32.0] Diagnosis: Type 2 diabetes mellitus with hyperglycemia[ICD10: E11.65] Diagnosis: Hordeolum externum left upper eyelid[ICD10: H00.014] Rika Motta MD, [facility] CPT-4: 99481 08/03/2017 ([id number]) 41214 EST. PATIENT, LEVEL IV Diagnosis: Type 2 diabetes mellitus with hyperglycemia[ICD10: E11.65] Diagnosis: Hordeolum externum left upper eyelid[ICD10: H00.014] Diagnosis: Essential (primary) hypertension[ICD10: I10] Diagnosis: Chronic obstructive pulmonary disease, unspecified[ICD10: J44.9] Rika Motta MD, [facility] CPT-4: 45287 07/27/2017 ([id number]) 10932 EST. PATIENT, LEVEL IV Diagnosis: Type 2 diabetes mellitus with hyperglycemia[ICD10: E11.65] Diagnosis: Essential (primary) hypertension[ICD10: I10] Tessie Motta MD, [facility] CPT-4: 33958 06/13/2017 54307 EST. PATIENT, LEVEL IV Diagnosis: Periapical abscess without sinus[ICD10: K04.7] Arlette Motta MD, [facility] CPT-4: 89597 04/21/2017 ([id number]) 06905 EST. PATIENT, LEVEL IV Diagnosis: Type 2 diabetes mellitus with hyperglycemia[ICD10: E11.65] Diagnosis: Cellulitis of abdominal wall[ICD10: L03.311] Diagnosis: Chronic pain syndrome[ICD10: G89.4] Diagnosis: Essential (primary) hypertension[ICD10: I10] Diagnosis: Unsteadiness on feet[ICD10: R26.81] Rika Motta MD, [facility] CPT-4: 41096 04/18/2017 ([id number]) 64509 EST. PATIENT, LEVEL IV Diagnosis: Type 2 diabetes mellitus with hyperglycemia[ICD10: E11.65] Diagnosis: Hypokalemia[ICD10: E87.6] Diagnosis: Essential (primary) hypertension[ICD10: I10] Diagnosis: Paroxysmal atrial fibrillation[ICD10: I48.0] Rika Motta MD, [facility] CPT-4: 76903 03/27/2017 ([id number]) 79640 EST. PATIENT, LEVEL IV Diagnosis: Essential (primary) hypertension[ICD10: I10] Diagnosis: Type 2 diabetes mellitus with hyperglycemia[ICD10: E11.65] Diagnosis: Hypokalemia[ICD10: E87.6] Diagnosis: Generalized abdominal pain[ICD10: R10.84] Rika Motta MD, [facility] CPT-4: 26999 02/27/2017 ([id number]) 64611 EST. PATIENT, LEVEL III Diagnosis: Drug induced constipation[ICD10: K59.03] Rika Motta MD, [facility] CPT-4: 56198 02/21/2017 ([id number]) 53983 EST. PATIENT, LEVEL IV Diagnosis: Generalized abdominal pain[ICD10: R10.84] Diagnosis: Hypokalemia[ICD10: E87.6] Diagnosis: Hypomagnesemia[ICD10: E83.42] Rika Motta MD, [facility] CPT-4: 99835 02/17/2017 ([id number]) 69905 EST. PATIENT, LEVEL IV Diagnosis: Paroxysmal atrial fibrillation[ICD10: I48.0] Diagnosis: Essential (primary) hypertension[ICD10: I10] Diagnosis: Chronic obstructive pulmonary disease, unspecified[ICD10: J44.9] Diagnosis: Type 2 diabetes mellitus with hyperglycemia[ICD10: E11.65] Diagnosis: Diarrhea, unspecified[ICD10: R19.7] Rika Motta MD, [facility] CPT-4: 60285 02/13/2017 ([id number]) 79495 EST. PATIENT, LEVEL IV Diagnosis: Type 2 diabetes mellitus with hyperglycemia[ICD10: E11.65] Diagnosis: Pain in right shoulder[ICD10: M25.511] Diagnosis: Chronic maxillary sinusitis[ICD10: J32.0] Rika Motta MD, [facility] CPT-4: 40346 01/30/2017 ([id number]) 55175 EST. PATIENT, LEVEL IV Diagnosis: Essential (primary) hypertension[ICD10: I10] Diagnosis: Type 2 diabetes mellitus with hyperglycemia[ICD10: E11.65] Diagnosis: Hypothyroidism, unspecified[ICD10: E03.9] Diagnosis: Generalized anxiety disorder[ICD10: F41.1] Diagnosis: Chronic pain syndrome[ICD10: G89.4] Diagnosis: Restless legs syndrome[ICD10: G25.81] Diagnosis: Obstructive sleep apnea (adult) (pediatric)[ICD10: G47.33] Rika Motta MD, [facility] CPT-4: 67757 01/16/2017 85152 EST. PATIENT, LEVEL IV Diagnosis: Other acute sinusitis[ICD10: J01.80] Diagnosis: Diplopia[ICD10: H53.2] Arlette Motta MD, [facility] CPT-4: 13318 12/13/2016 ([id number]) 02718 EST. PATIENT, LEVEL IV Diagnosis: Essential (primary) hypertension[ICD10: I10] Diagnosis: Fasciculation[ICD10: R25.3] Diagnosis: Generalized anxiety disorder[ICD10: F41.1] Diagnosis: Other obesity due to excess calories[ICD10: E66.09] Diagnosis: Zoster without complications[ICD10: B02.9] Diagnosis: Unilateral primary osteoarthritis, right knee[ICD10: M17.11] Diagnosis: Unsteadiness on feet[ICD10: R26.81] Rika Motta MD, [facility] CPT-4: 27617 11/11/2016 ([id number]) 72583 EST. PATIENT, LEVEL IV Diagnosis: Zoster without complications[ICD10: B02.9] Diagnosis: Type 2 diabetes mellitus with hyperglycemia[ICD10: E11.65] Diagnosis: Vomiting, unspecified[ICD10: R11.10] Rika Motta MD, [facility] CPT-4: 66706 10/28/2016 ([id number]) 73382 EST. PATIENT, LEVEL III Diagnosis: Pain in right knee[ICD10: M25.561] Diagnosis: Zoster without complications[ICD10: B02.9] Rika Motta MD, [facility] CPT-4: 23354 10/13/2016 ([id number]) 35884 EST. PATIENT, LEVEL IV Diagnosis: Acute recurrent maxillary sinusitis[ICD10: J01.01] Diagnosis: Low back pain[ICD10: M54.5] Diagnosis: Pain in right knee[ICD10: M25.561] Diagnosis: Allergic rhinitis due to pollen[ICD10: J30.1] Rika Motta MD, [facility] CPT-4: 69335 09/23/2016 ([id number]) 80061 EST. PATIENT, LEVEL IV Diagnosis: Pain in right shoulder[ICD10: M25.511] Diagnosis: Type 2 diabetes mellitus with hyperglycemia[ICD10: E11.65] Diagnosis: Cervicalgia[ICD10: M54.2] Diagnosis: Candidiasis of skin and nail[ICD10: B37.2] Diagnosis: Low back pain[ICD10: M54.5] Rika Motta MD, [facility] CPT-4: 65023 09/13/2016 ([id number]) 86475 EST. 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 PATIENT, LEVEL IV Diagnosis: Type 2 diabetes mellitus with hyperglycemia[ICD10: E11.65] Diagnosis: Candidiasis of skin and nail[ICD10: B37.2] Diagnosis: Chronic obstructive pulmonary disease, unspecified[ICD10: J44.9] Diagnosis: Paroxysmal atrial fibrillation[ICD10: I48.0] Diagnosis: Pneumonia, unspecified organism[ICD10: J18.9] Rika Motta MD, [facility] CPT-4: 96902 07/26/2016 ([id number]) 94984 EST. PATIENT, LEVEL IV Diagnosis: Type 2 diabetes mellitus with hyperglycemia[ICD10: E11.65] Diagnosis: Generalized anxiety disorder[ICD10: F41.1] Diagnosis: Essential (primary) hypertension[ICD10: I10] Diagnosis: Chronic pain syndrome[ICD10: G89.4] Rika Motta MD, [facility] CPT-4: 93204 05/24/2016 ([id number]) 16183 EST. PATIENT, LEVEL IV Diagnosis: Menopausal and female climacteric states[ICD10: N95.1] Diagnosis: Type 2 diabetes mellitus with hyperglycemia[ICD10: E11.65] Diagnosis: Generalized anxiety disorder[ICD10: F41.1] Rika Motta MD, [facility] CPT-4: 58239 04/19/2016 ([id number]) 42769 EST. PATIENT, LEVEL IV Diagnosis: Type 2 diabetes mellitus with hyperglycemia[ICD10: E11.65] Diagnosis: Generalized anxiety disorder[ICD10: F41.1] Diagnosis: Essential (primary) hypertension[ICD10: I10] Diagnosis: Dysuria[ICD10: R30.0] Rika Motta MD, [facility] CPT-4: 98182 04/11/2016 ([id number]) 66390 EST. PATIENT, LEVEL IV Diagnosis: Generalized anxiety disorder[ICD10: F41.1] Diagnosis: Major depressive disorder, single episode, mild[ICD10: F32.0] Diagnosis: Hypothyroidism, unspecified[ICD10: E03.9] Diagnosis: Type 2 diabetes mellitus with hyperglycemia[ICD10: E11.65] Rika Motta MD, [facility] CPT-4: 71526 03/21/2016 [id number]) 82037 EST. PATIENT, LEVEL IV Diagnosis: Type 2 diabetes mellitus with hyperglycemia[ICD10: E11.65] Diagnosis: Cellulitis of right lower limb[ICD10: L03.115] Diagnosis: Other elevated white blood cell count[ICD10: D72.828] Diagnosis: Localized edema[ICD10: R60.0] Rika Motta MD, [facility] CPT-4: 08141 03/11/2016 [id number]) 08644 EST. PATIENT, LEVEL IV Diagnosis: Type 2 diabetes mellitus with hyperglycemia[ICD10: E11.65] Diagnosis: Localized edema[ICD10: R60.0] Diagnosis: Other conjunctivitis[ICD10: H10.89] Diagnosis: Obstructive sleep apnea (adult) (pediatric)[ICD10: G47.33] Diagnosis: Unspecified asthma, uncomplicated[ICD10: J45.909] Diagnosis: VAC STREP PNEUMONIAE-FLU[ICD10: Z23] Rika Motta MD, [facility] CPT-4: 12591 02/26/2016 [id number]) 76857 EST. PATIENT, LEVEL IV Diagnosis: Essential (primary) hypertension[ICD10: I10] Diagnosis: Paroxysmal atrial fibrillation[ICD10: I48.0] Diagnosis: Type 2 diabetes mellitus with hyperglycemia[ICD10: E11.65] Diagnosis: Obstructive sleep apnea (adult) (pediatric)[ICD10: G47.33] Diagnosis: Chronic obstructive pulmonary disease, unspecified[ICD10: J44.9] Rika Motta MD, [facility] CPT-4: 32384 02/02/2016 25536) 26952 EST. 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 PATIENT, LEVEL IV Diagnosis: Type 2 diabetes mellitus with hyperglycemia[ICD10: E11.65] Diagnosis: Generalized anxiety disorder[ICD10: F41.1] Diagnosis: Essential (primary) hypertension[ICD10: I10] Diagnosis: Restless legs syndrome[ICD10: G25.81] Diagnosis: Dysuria[ICD10: R30.0] Rika Motta MD, [facility] CPT-4: 68144 11/27/2015 31999 EST. PATIENT, LEVEL IV Diagnosis: Addisonian crisis[ICD10: E27.2] Arlette Motta MD, [facility] CPT-4 : 00563 11/12/2015 19676 EST. PATIENT, LEVEL IV Diagnosis: Acute bronchitis due to other specified organisms[ICD10: J20.8] Diagnosis: Other acute sinusitis[ICD10: J01.80] Diagnosis: Other malaise[ICD10: R53.81] Diagnosis: Cough[ICD10: R05] Arlette Motta MD, [facility] CPT-4: 07540 11/10/2015 18127 EST. PATIENT, LEVEL IV Diagnosis: Pain in left knee[ICD10: M25.562] Diagnosis: Cellulitis of right toe[ICD10: L03.031] Arlette Motta MD, [facility] CPT-4: 83318 10/27/2015 ([id number]) 55685 EST. PATIENT, LEVEL IV Diagnosis: Essential (primary) hypertension[ICD10: I10] Diagnosis: Localized edema[ICD10: R60.0] Diagnosis: Type 2 diabetes mellitus with hyperglycemia[ICD10: E11.65] Rika Motta MD, [facility] CPT-4: 05956 09/22/2015 ([id number]) 33380 EST. PATIENT, LEVEL IV Diagnosis: Essential (primary) hypertension[ICD10: I10] Diagnosis: Type 2 diabetes mellitus with hyperglycemia[ICD10: E11.65] Diagnosis: Cellulitis of right toe[ICD10: L03.031] Rika Motta MD, [facility] CPT-4: 60749 09/01/2015 ([id number]) 33918 EST. PATIENT, LEVEL IV Diagnosis: Type 2 diabetes mellitus with hyperglycemia[ICD10: E11.65] Diagnosis: Essential (primary) hypertension[ICD10: I10] Diagnosis: Generalized anxiety disorder[ICD10: F41.1] Diagnosis: Hypothyroidism, unspecified[ICD10: E03.9] Diagnosis: Body mass index (BMI) 40.0-44.9, adult[ICD10: Z68.41] Rika Motta MD, [facility] CPT-4: 34054 08/10/2015 58913 EST. PATIENT, LEVEL IV Diagnosis: Acute bronchitis due to other specified organisms[ICD10: J20.8] Diagnosis: Pain in left knee[ICD10: M25.562] Diagnosis: Type 2 diabetes mellitus with hyperglycemia[ICD10: E11.65] Arlette Motta MD, [facility] CPT-4: 25312 06/26/2015 ([id number]) 19139 EST. PATIENT, LEVEL IV Diagnosis: Cellulitis of right lower limb[ICD10: L03.115] Diagnosis: Type 2 diabetes mellitus with hyperglycemia[ICD10: E11.65] Diagnosis: Essential (primary) hypertension[ICD10: I10] Diagnosis: Edema, unspecified[ICD10: R60.9] Rika Motta MD, [facility] CPT-4: 39650 04/14/2015 ([id number]) 55915 EST. PATIENT, LEVEL IV Diagnosis: Essential (primary) hypertension[ICD10: I10] Diagnosis: Type 2 diabetes mellitus with hyperglycemia[ICD10: E11.65] Diagnosis: Localized edema[ICD10: R60.0] Diagnosis: Dysuria[ICD10: R30.0] Rika Motta MD, [facility] CPT-4: 92322 03/03/2015 ([id number]) 90034 EST. PATIENT, LEVEL III Diagnosis: Blister of leg[ICD9: 916.2] Diagnosis: Rash[ICD9: 782.1] Diagnosis: EDEMA[ICD9: 782.3] Tessie Motta MD, [facility] CPT-4: 56909 01/15/2015 ([id number]) 63326 EST. PATIENT, LEVEL IV Diagnosis: Cellulitis, leg[ICD9: 682.6] Diagnosis: DIABETES TYPE II[ICD9: 250.00] Tessie Motta MD, [facility] CPT- 4: 35423 01/01/2015 ([id number]) Miscellaneous no charge Diagnosis: CVA (cerebral vascular accident)[ICD9: 434.91] Isabella Motta MD, [facility] CPT-4: 64267 12/25/2014 ([id number]) 83982 EST. PATIENT, LEVEL IV Diagnosis: ESSENTIAL HYPERTENSION[ICD9: 401.9] Diagnosis: DM W/O COMPLICATION TYPE II, UNCONTROLLED[ICD9: 250.02] Diagnosis: EDEMA[ICD9: 782.3] Diagnosis: Dysuria[ICD9: 788.1] Rika Motta MD, [facility] CPT-4: 95042 11/04/2014 ([id number]) 90597 EST. PATIENT, LEVEL IV Diagnosis: EDEMA[ICD9: 782.3] Diagnosis: Cellulitis of right leg[ICD9: 682.6] Diagnosis: Allergic rhinitis[ICD9: 477.9] Rika Motta MD, [facility] CPT-4: 14202 09/08/2014 ([id number]) 20561 EST. PATIENT, LEVEL IV Diagnosis: EDEMA[ICD9: 782.3] Diagnosis: ESSENTIAL HYPERTENSION[ICD9: 401.9] Diagnosis: DIABETES TYPE II[ICD9: 250.00] Diagnosis: Cellulitis of right leg[ICD9: 682.6] Rika Motta MD, [facility] CPT-4: 04724 08/29/2014 ([id number]) 15343 EST. PATIENT, LEVEL III Diagnosis: EDEMA[ICD9: 782.3] Diagnosis: DIABETES TYPE II[ICD9: 250.00] Tessie Motta MD, [facility] CPT- 4: 46515 06/30/2014 ([id number]) 18146 EST. PATIENT, LEVEL IV Diagnosis: EDEMA[ICD9: 782.3] Diagnosis: DM W/O COMPLICATION TYPE II, UNCONTROLLED[ICD9: 250.02] Diagnosis: Sciatica[ICD9: 724.3] Tessie Motta MD, [facility] CPT-4: 81011 06/12/2014 ([id number]) 35234 EST. PATIENT, LEVEL III Diagnosis: Cellulitis, leg[ICD9: 682.6] Diagnosis: EDEMA[ICD9: 782.3] Rika Motta MD, [facility] CPT-4: 70325 05/26/2014 ([id number]) 15671 EST. PATIENT, LEVEL IV Diagnosis: DIABETES TYPE II[ICD9: 250.00] Diagnosis: Chronic sinusitis[ICD9: 473.9] Tessie Motta MD, [facility] CPT- 4: 67797 04/15/2014 ([id number]) 82205 EST. PATIENT, LEVEL IV Diagnosis: DM W/O COMPLICATION TYPE II, UNCONTROLLED[ICD9: 250.02] Diagnosis: CHRONIC SINUSITIS[ICD9: 473.9] Diagnosis: EDEMA[ICD9: 782.3] Diagnosis: Right knee pain[ICD9: 719.46] Rika Motta MD, [facility] CPT-4: 30536 03/25/2014 ([id number]) 82729 EST. PATIENT, LEVEL IV Diagnosis: Blister of leg[ICD9: 916.2] Diagnosis: EDEMA[ICD9: 782.3] Diagnosis: DM W/O COMPLICATION TYPE II, UNCONTROLLED[ICD9: 250.02] Diagnosis: ESSENTIAL HYPERTENSION[ICD9: 401.9] Rika Motta MD, [facility] CPT-4: 44832 03/03/2014 ([id number]) 53388 EST. PATIENT, LEVEL IV Diagnosis: CELLULITIS OF LEG[ICD9: 682.6] Diagnosis: Diabetes mellitus type 2, uncontrolled[ICD9: 250.02] Diagnosis: ESSENTIAL HYPERTENSION[ICD9: 401.9] Diagnosis: EDEMA[ICD9: 782.3] Tessie Motta MD, [facility] CPT-4: 53060 02/13/2014 ([id number]) 56194 EST. PATIENT, LEVEL IV Diagnosis: Diabetes mellitus type 2, uncontrolled[ICD9: 250.02] Tessie Motta MD, [facility] CPT-4: 92546 01/27/2014 ([id number]) 40637 EST. PATIENT, LEVEL III Diagnosis: OPEN WND KNEE/LEG/ANKLE[ICD9: 891.0] Diagnosis: EDEMA[ICD9: 782.3] Rika Motta MD, [facility] CPT-4: 66299 12/26/2013 ([id number]) 40003 EST. PATIENT, LEVEL III Diagnosis: Cellulitis of right leg[ICD9: 682.6] Diagnosis: OPEN WND KNEE/LEG/ANKLE[ICD9: 891.0] Rika Motta MD, [facility] CPT-4: 82012 12/12/2013 ([id number]) 64362 EST. PATIENT, LEVEL IV Diagnosis: Asthma exacerbation[ICD9: 493.92] Diagnosis: COUGH[ICD9: 786.2] Diagnosis: EDEMA[ICD9: 782.3] Rika Motta MD, [facility] CPT-4: 03658 11/14/2013 ([id number]) 29612 EST. PATIENT, LEVEL III Diagnosis: OPEN WND KNEE/LEG/ANKLE[ICD9: 891.0] Diagnosis: EDEMA[ICD9: 782.3] Rika Motta MD, [facility] CPT-4: 93706 10/21/2013 ([id number]) 31584 EST. PATIENT, LEVEL IV Diagnosis: ESSENTIAL HYPERTENSION[SNOMED: [id number]] Diagnosis: Right knee pain[ICD9: 719.46] Diagnosis: OPEN WND KNEE/LEG/ANKLE[ICD9: 891.0] Rika Motta MD, [facility] CPT-4: 83544 10/03/2013 ([id number]) Miscellaneous no charge Diagnosis: Open wound of leg[ICD9: 891.0] Rika Motta MD, [facility] CPT-4: 23127 09/27/2013 [id number] EST. PATIENT, LEVEL II Diagnosis: Open wound of leg[ICD9: 891.0] Diagnosis: Wrist pain, left[ICD9: 719.43] Rika Motta MD, [facility] CPT-4: 07559 09/23/2013 ([id number]) [id number] EST. PATIENT, LEVEL IV Diagnosis: CELLULITIS OF LEG[ICD9: 682.6] Diagnosis: ESSENTIAL HYPERTENSION[SNOMED: 98345151] Diagnosis: EDEMA[ICD9: 782.3] Rika Motta MD, [facility] CPT-4: 02295 09/20/2013 ([id number]) [id number] EST. PATIENT, LEVEL IV Diagnosis: Open wound of right lower leg[ICD9: 891.0] Diagnosis: DM W/O COMPLICATION TYPE II, UNCONTROLLED[SNOMED: 97940506] Diagnosis: Edema[ICD9: 782.3] Rika Motta MD, [facility] CPT-4: 27657 09/10/2013 ([id number]) [id number] EST. PATIENT, LEVEL III Diagnosis: DM W/O COMPLICATION TYPE II, UNCONTROLLED[SNOMED: 90233576] Diagnosis: EDEMA[ICD9: 782.3] Tessie Motta MD, [facility] CPT-4: 39560 08/19/2013 ([id number]) 25120 EST. PATIENT, LEVEL IV Diagnosis: EDEMA[ICD9: 782.3] Diagnosis: DIABETES TYPE II[SNOMED: 191506936] Diagnosis: HYPOTHYROIDISM[ICD9: 244.9] Diagnosis: LUMBAGO[ICD9: 724.2] Diagnosis: SCIATICA[ICD9: 724.3] Tessie Motta MD, [facility] CPT-4: 51311 08/12/2013 ([id number]) 30961 EST. PATIENT, LEVEL IV Diagnosis: DIABETES TYPE II[SNOMED: 317109618] Diagnosis: EDEMA[ICD9: 782.3] Diagnosis: HYPOTHYROIDISM[ICD9: 244.9] Diagnosis: Encounter for long-term (current) use of other medications[ICD9: V58.69] Diagnosis: LUMBAGO[ICD9: 724.2] Rika Motta MD, [facility] CPT-4: 45703 08/01/2013 ([id number]) 80371 EST. PATIENT, LEVEL III Diagnosis: Blister of right foot[ICD9: 917.2] Rika Motta MD, [facility] CPT-4: 96656 07/19/2013 ([id number]) 97945 EST. PATIENT, LEVEL III Diagnosis: Cellulitis of right leg[ICD9: 682.6] Diagnosis: ESSENTIAL HYPERTENSION[SNOMED: 18196351] Diagnosis: EDEMA[ICD9: 782.3] Rika Motta MD, [facility] CPT-4: 25867 07/15/2013 ([id number]) 73933 EST. PATIENT, LEVEL IV Diagnosis: DIABETES TYPE II[SNOMED: 682322428] Diagnosis: BACKACHE[ICD9: 724.5] Diagnosis: Muscle spasms of neck[ICD9: 728.85] Tessie Motta MD, [facility] CPT-4: 78316 06/27/2013 ([id number]) 36606 EST. PATIENT, LEVEL IV Diagnosis: DM W/O COMPLICATION TYPE II, UNCONTROLLED[SNOMED: 15513955] Diagnosis: EDEMA[ICD9: 782.3] Diagnosis: OBESITY[ICD9: 278.00] Diagnosis: WHEEZING[ICD9: 786.07] Tessie Motta MD, [facility] CPT-4: 12582 06/10/2013 ([id number]) 96519 EST. PATIENT, LEVEL IV Diagnosis: CHRONIC SINUSITIS[ICD9: 473.9] Diagnosis: WHEEZING[ICD9: 786.07] Diagnosis: ACUTE BRONCHITIS[ICD9: 466.0] Diagnosis: Back pain[ICD9: 724.5] Tessie Motta MD, [facility] CPT-4: 73235 05/07/2013 ([id number]) 48090 EST. PATIENT, LEVEL IV Diagnosis: EDEMA[ICD9: 782.3] Diagnosis: COPD (chronic obstructive pulmonary disease) with acute bronchitis[ ICD9: 491.22] Tessie Motta MD, [facility] CPT-4: 50670 04/16/2013 ([id number]) 96749 EST. PATIENT, LEVEL IV Diagnosis: Lumbago[ICD9: 724.2] Diagnosis: DM W/O COMPLICATION TYPE II, UNCONTROLLED[SNOMED: 75415366] Diagnosis: EDEMA[ICD9: 782.3] Rika Motta MD, [facility] CPT-4: 10928 03/21/2013 ([id number]) 63091 EST. PATIENT, LEVEL IV Diagnosis: Abdominal pain[ICD9: 789.00] Diagnosis: EDEMA[ICD9: 782.3] Diagnosis: DIABETES TYPE II[SNOMED: 439436824] Tessie Motta MD, [facility] CPT-4: 47647 02/12/2013 ([id number]) 08786 EST. PATIENT, LEVEL III Diagnosis: EDEMA[ICD9: 782.3] Diagnosis: RESPIRATORY ABNORM NEC[ICD9: 786.09] Tessie Motta MD, [facility] CPT-4: 01059 02/04/2013 ([id number]) 44119 EST. PATIENT, LEVEL IV Diagnosis: Edema[ICD9: 782.3] Diagnosis: ESSENTIAL HYPERTENSION[SNOMED: 83436524] Tessie Motta MD [facility] CPT-4: 42698 01/17/2013 ([id number]) 61988 EST. PATIENT, LEVEL IV Diagnosis: ESSENTIAL HYPERTENSION[SNOMED: 89741033] Diagnosis: Diabetic leg ulcer[ICD9: 250.80] Diagnosis: Callus[ICD9: 700] Diagnosis: Urinary urgency[ICD9: 788.63] Diagnosis: HYPOTHYROIDISM[ICD9: 244.9] Rika Motta MD, [facility] CPT-4: 82234 12/31/2012 ([id number]) 46916 EST. PATIENT, LEVEL IV Diagnosis: Cellulitis of left leg[ICD9: 682.6] Diagnosis: DIABETES TYPE II[SNOMED: 390775571] Diagnosis: ESSENTIAL HYPERTENSION[SNOMED: 93197858] Diagnosis: EDEMA[ICD9: 782.3] Rika Motta MD, [facility] CPT-4: 97161 12/20/2012 ([id number]) 25726 EST. PATIENT, LEVEL III Diagnosis: Acute bronchitis[ICD9: 466.0] Diagnosis: COUGH[ICD9: 786.2] Tessie Motta MD, [facility] CPT-4: 86550 10/29/2012 ([id number]) 10233 EST. PATIENT, LEVEL IV Diagnosis: ESSENTIAL HYPERTENSION[SNOMED: 66767535] Diagnosis: DIABETES TYPE II[SNOMED: 348297332] Diagnosis: HYPOTHYROIDISM[ICD9: 244.9] Tessie Motta MD [facility] CPT- 4: 81607 09/06/2012 ([id number]) 89843 EST. PATIENT, LEVEL IV Diagnosis: DIABETES TYPE II[SNOMED: 844229670] Diagnosis: ESSENTIAL HYPERTENSION[SNOMED: 85184720] Diagnosis: Diarrhea[ICD9: 787.91] Tessie Motta MD [facility] CPT-4: 66154 08/23/2012 ([id number]) 19417 EST. PATIENT, LEVEL III Diagnosis: ESSENTIAL HYPERTENSION[SNOMED: 37290698] Diagnosis: Gastroenteritis[ICD9: 558.9] Rika Motta MD [facility] CPT-4: 93056 08/13/2012 ([id number]) 63611 EST. PATIENT, LEVEL IV Diagnosis: Diarrhea[ICD9: 787.91] Diagnosis: ESSENTIAL HYPERTENSION[SNOMED: 65109920] Diagnosis: DM W/O COMPLICATION TYPE II, UNCONTROLLED[SNOMED: 22055017] Rika Motta MD [facility] CPT-4: 71244 08/07/2012 ([id number]) 76318 EST. PATIENT, LEVEL III Diagnosis: Acute sinusitis[ICD9: 461.9] Diagnosis: Thrush[ICD9: 112.0] Rika Motta MD [facility] CPT-4: 79801 07/06/2012 ([id number]) 89306 EST. PATIENT, LEVEL IV Diagnosis: ESSENTIAL HYPERTENSION[SNOMED: 78831036] Diagnosis: DIABETES TYPE II[SNOMED: 564843479] Tessie Motta MD [facility] CPT-4: 81176 06/07/2012 ([id number]) 17705 EST. PATIENT, LEVEL IV Diagnosis: ESSENTIAL HYPERTENSION[SNOMED: 18113777] Diagnosis: ACUTE SINUSITIS[ICD9: 461.9] Diagnosis: Labial cyst[ICD9: 624.8] Tessie Motta MD [facility] CPT-4: 21467 05/28/2012 ([id number]) 31354 EST. PATIENT, LEVEL IV Diagnosis: ESSENTIAL HYPERTENSION[SNOMED: 22586657] Diagnosis: EDEMA[ICD9: 782.3] Tessie Motta MD [facility] CPT-4: 25945 05/17/2012 ([id number]) 98292 EST. PATIENT, LEVEL IV Diagnosis: EDEMA[ICD9: 782.3] Diagnosis: ESSENTIAL HYPERTENSION[SNOMED: 70557817] Diagnosis: Diarrhea[ICD9: 787.91] Diagnosis: ALLERGIC RHINITIS[ICD9: 477.9] Tessie Motta MD [facility] CPT- 4: 66300 05/02/2012 ([id number]) 46233 EST. PATIENT, LEVEL IV Diagnosis: ACUTE SINUSITIS[ICD9: 461.9] Diagnosis: ESSENTIAL HYPERTENSION[SNOMED: 60960978] Diagnosis: ALLERGIC RHINITIS[ICD9: 477.9] Tessie Motta MD [facility] CPT- 4: 88134 04/10/2012 ([id number]) 53521 EST. PATIENT, LEVEL IV Diagnosis: ESSENTIAL HYPERTENSION[SNOMED: 83211215] Diagnosis: Foreign body in foot or toe[ICD9: 917.6] Diagnosis: EDEMA[ICD9: 782.3] Tessie Motta MD [facility] CPT-4: 76604 02/27/2012 ([id number]) 45093 EST. PATIENT, LEVEL IV Diagnosis: CELLULITIS OF FOOT[ICD9: 682.7] Diagnosis: DIABETES TYPE II[SNOMED: 251801402] Diagnosis: EDEMA[ICD9: 782.3] Tessie Motta MD [facility] CPT-4: 54722 02/15/2012 ([id number]) 97070 EST. PATIENT, LEVEL IV Diagnosis: EDEMA[ICD9: 782.3] Diagnosis: ESSENTIAL HYPERTENSION[SNOMED: 63020132] Diagnosis: ACUTE SINUSITIS[ICD9: 461.9] Diagnosis: Dysuria[ICD9: 788.1] Tessie Motta MD [facility] CPT-4: 30842 02/01/2012 ([id number]) 10067 EST. PATIENT, LEVEL IV Diagnosis: DIABETES TYPE II[SNOMED: 822845280] Diagnosis: Diverticulitis[ICD9: 562.11] Tessie Motta MD [facility] CPT- 4: 45753 12/14/2011 ([id number]) 19040 EST. PATIENT, LEVEL IV Diagnosis: Nausea vomiting and diarrhea[ICD9: 787.01] Diagnosis: ESSENTIAL HYPERTENSION[SNOMED: 00410013] Diagnosis: DM W/O COMPLICATION TYPE II, UNCONTROLLED[SNOMED: 76458438] Tessie Motta MD , [facility] CPT-4: 42566 11/30/2011 ([id number]) 05060 EST. PATIENT, LEVEL IV Diagnosis: ESSENTIAL HYPERTENSION[SNOMED: 00030990] Diagnosis: DIABETES TYPE II[SNOMED: 953054639] Diagnosis: COUGH[ICD9: 786.2] Tessie Motta MD, [facility] CPT-4: 95104 11/17/2011 ([id number]) Patient admitted to the hospital from clinic (NO CHARGE) Diagnosis: Tachycardia[ICD9: 785.0] Diagnosis: Dyspnea[ICD9: 786.09] Diagnosis: Wheezing[ICD9: 786.07] Diagnosis: FALL AGAINST OBJECT[ICD9: E888.1] Diagnosis: ANXIETY STATE[ICD9: 300.00] Diagnosis: ESSENTIAL HYPERTENSION[SNOMED: 12422246] Diagnosis: Chronic depression[ICD9: 311] Diagnosis: Diabetes mellitus type 2, uncontrolled[SNOMED: 01652763] Tessie Motta MD, [facility] CPT-4: 49017D 11/03/2011 ([id number]) 38258 EST. PATIENT, LEVEL IV Diagnosis: DIABETES TYPE II[SNOMED: 473101200] Diagnosis: ANXIETY STATE[ICD9: 300.00] Diagnosis: DEPRESSIVE DISORDER NEC[ICD9: 311] Diagnosis: Ulcer of toe[ICD9: 707.15] Tessie Motta MD [facility] CPT- 4: 73734 10/24/2011 ([id number]) 47129 EST. PATIENT, LEVEL IV Diagnosis: EDEMA[ICD9: 782.3] Diagnosis: ESSENTIAL HYPERTENSION[SNOMED: 99566772] Diagnosis: ANXIETY STATE[ICD9: 300.00] Tessie Motta MD, [facility] CPT- 4: 27950 09/26/2011 56563 EST. PATIENT, LEVEL IV Diagnosis: EDEMA[ICD9: 782.3] Diagnosis: ESSENTIAL HYPERTENSION[SNOMED: 00969799] Rika Motta MD, [facility] CPT-4: 39673 09/20/2011 ([id number]) 12726 EST. PATIENT, LEVEL IV Diagnosis: ACUTE SINUSITIS[ICD9: 461.9] Diagnosis: Allergic rhinitis[ICD9: 477.9] Diagnosis: Cough[ICD9: 786.2] Tessie Motta MD, [facility] CPT-4: 29113 09/01/2011 ([id number]) 64923 EST. PATIENT, LEVEL IV Diagnosis: Chronic sinusitis[ICD9: 473.9] Diagnosis: Anxiety, generalized[ICD9: 300.02] Tessie Motta MD [facility] CPT-4: 81437 08/15/2011 14977 EST. PATIENT, LEVEL IV Diagnosis: ACUTE SINUSITIS[ICD9: 461.9] Diagnosis: Tachycardia[ICD9: 785.0] Diagnosis: Anxiety[ICD9: 300.00] Diagnosis: Dehydration[ICD9: 276.51] Diagnosis: Sciatica[ICD9: 724.3] Tessie Motta MD [facility] CPT-4: 11105 08/09/2011 21857 EST. PATIENT, LEVEL IV Diagnosis: DIABETES TYPE II[SNOMED: 082620087] Diagnosis: Sciatica[ICD9: 724.3] Diagnosis: Yeast infection[ICD9: 112.9] Tessie Motta MD [facility] CPT- 4: 56827 08/01/2011 ([id number]) 93347 EST. PATIENT, LEVEL IV Diagnosis: DIABETES TYPE II[SNOMED: 377200249] Diagnosis: ACUTE MAXILLARY SINUSITIS[ICD9: 461.0] Diagnosis: Fibromyalgia[ICD9: 729.1] Tessie Motta MD [facility] CPT-4: 68151 06/20/2011 34924 EST. PATIENT, LEVEL IV Diagnosis: ESSENTIAL HYPERTENSION[SNOMED: 44062254] Diagnosis: DIABETES TYPE II[SNOMED: 881897533] Diagnosis: ACUTE MAXILLARY SINUSITIS[ICD9: 461.0] Tessie Motta MD, [facility] CPT-4: 24455 04/18/2011 Plan of Care Planned Activity Notes Codes Status Date Visit Plan: UA negative -no culture indicated 12/14/2017 Appointment: Lab Draw 12/14/2017 Patient Education: Patient Medication Summary Completed 12/14/2017 Visit Plan: Dysuria-urinary incontinence-culture urine HTN- elevated today-monitor at home -follow up with shape hand 11/27/2017 [phone] [place] (15 min) Moderate 11/27/2017 Patient Education: [...] Completed 10/27/2017 Care Plan: SCREENINGMAMMOGRAPHYDIGITAL LOINC : 19434-6 Pending 10/27/2017 Appointment: [facility] Skel[phone] [facility] [place] (15 min) Moderate 10/03/2017 Appointment: [facility]el[phone] [facility] [place] (15 min) Moderate 10/02/2017 Appointment: Rika Bello WPtel: [phone] [phone] [place] (30 min) Complex 09/29/2017 Visit [...] worsened. 09/27/2017 Appointment: [facility]elton [facility]el[phone] [facility] (30 min) Complex 09/27/2017 Patient Education: Patient Medication Summary Completed 09/27/2017 Care Plan: CT HEAD/BRAIN W/O DYE INC : 73114-0 Pending 09/27/2017 Visit Plan: DM-patient noncompliant with [...] medication. 09/15/2017 Appointment: Rika Bello WPtel: [phone] [phone] [place] (30 min) Complex 09/15/2017 Patient Education: Patient Medication Summary Completed 09/15/2017 Appointment: Rika Bello WPtel: [phone] [phone] (30 min) Complex 09/12/2017 Appointment: Rika Bello WPtel: [address] [phone] (30 min) Complex 09/07/2017 Visit Plan: Hzq-yvnufmegkb-se changes Anemia-check cbc today Dental infection-on clindamycin per Dr Bryant-start probiotics Also needs to monitor blood sugars closely 08/18/2017 Appointment: Rika Bello WPtel: [phone] (30 min) Complex 08/18/2017 Patient Education: [...] not resolve 08/03/2017 Appointment: Rika Bello WPtel: [phone] (30 min) Complex 08/03/2017 Patient Education: Patient [...] symptoms worsen 07/27/2017 Appointment: Rika Bello WPtel: [address] [place], [place] [phone] (30 min) [facility] 07/27/2017 Patient Education: Patient Medication [...] in medications 06/13/2017 Appointment: [phone] (15 min) Moderate 06/13/2017 Patient Education: Patient Medication Summary Completed 06/13/2017 Visit Plan: Dental abscess - will send RX - pt is to keep her appointment with her dentist - pt is to notify clinic if symptoms do not improve, if they worsen, or with any other acute changes, questions, or concerns. 04/21/2017 Appointment: Ar[facility] Skelton [facility]Ptel[phone] [facility] (30 min) Complex 04/21/2017 Patient Education: Patient [...] Q HS RESCHEDULE APPT WITH DR YANNA HoBqoczhrup-gzldswqnj-xm for bactroban ointment provided and instructed on use DMP-ucvfcbcdpi-gi change in medications Mildly elevated liver enzymes-discussed with Dr motta-suspect due to gabapentin-will monitor levels Gait instability-again recommend patient use walker as well as PT 04/18/2017 Appointment: R[facility] Bello [facility]Ptel[phone] [phone] [place] (30 min) Complex 04/18/2017 Patient Education: [...] become less controlled. Low potassium- check labs LPV-jtloqyhupt-xn changes Afib-check digoxin level with labs Abdominal [...] become less controlled. Low potassium- check labs IOZ-ptpgegimug-wh changes Afib-check digoxin level with labs Abdominal pain-refill levsin for prn use -call if pain uncontrolled 03/27/2017 Appointment: Rika Bello WPtel: [phone] (30 min) Complex 03/27/2017 Patient Education: Patient Medication Summary Completed 03/27/2017 Appointment: Rika Bello WPtel: [phone] (30 min) Complex 03/24/2017 Visit Plan: Hypertension - well controlled - continue with current medications, continue with no added salt diet. Pt has been encouraged to exercise daily. The pt has been advised to call the office if there are any acute concerns about change in blood pressure readings at home. DM-uncontrolled- discussed strict diet and exercise with patient Low mlmqamrro-kpawnivn-nariolil to monitor Abd qnjl-wcjkfpju-wt changes 02/27/2017 Appointment: Rika Bello WPtel: [phone] (30 min) Complex 02/27/2017 Patient Education: Patient [...] regimen. 02/21/2017 Appointment: Rika Bello WPtel: [phone] (30 min) Complex 02/21/2017 Patient Education: Patient Medication Summary Completed 02/21/2017 Appointment: Rika Bello WPtel: [phone] [place] (30 min) Complex 02/20/2017 Visit [...] on Monday02/17/2017 Appointment: Rika Bello WPtel: [phone] (30 min) Complex 02/17/2017 Patient Education: Patient Medication Summary Completed 02/17/2017 Visit Plan: COPD-recent hospitalization with pneumonia- symptoms improved-discussed continuous oxygen use at home-appt with Dr Odonnell tomorrow Afib-check digoxin level-patient just finished zpack Diarrhea-continue probiotics-check stool if diarrhea persists DM-bring log to next appt 02/13/2017 Appointment: Rika Bello WPtel: [phone] [place] (30 min) Complex 02/13/2017 Patient Education: Patient Medication Summary Completed 02/13/2017 Patient Education: Hypertension Completed 02/13/2017 Visit Plan: DM-very uncontrolled-refer to Dr Raines for management RIght shoulder and arm pain-fell 5 days ago-xray shoulder and arm Chronic sinusitis-RX for Dr Cervantes's compound gentamicin nasal spray 01/30/2017 Appointment: Rika Bello WPtel: [phone] [phone] (30 min) Complex 01/30/2017 Patient Education: Patient Medication Summary Completed 01/30/2017 Care Plan: Referral Order SNOMED-CT : 938630495 Pending 01/30/2017 Visit Plan: Hypertension - well [...] every night DM-check Hgb A1C Hypothyroidism-check level Sbunolr-mocxiehhzx-kfu well controlled- increase cymbalta-recommend counseling 01/16/2017 Appointment: Rika Bello WPtel: [phone] (30 min) Complex 01/16/2017 Patient Education: Patient Medication Summary Completed 01/16/2017 Appointment: Rika Bello WPtel: [phone] (30 min) Complex 01/10/2017 Visit Plan: [...] concerns. 12/13/2016 Appointment: Arlette Skelton [facility]Ptel: [phone] [facility] (30 min) Complex 12/13/2016 Patient Education: Patient [...] completely heal. 11/11/2016 Appointment: Rika Bello WPtel: [phone] [place] (30 min) Complex 11/11/2016 Patient Education: Patient Medication Summary Completed 11/11/2016 Care Plan: BMI Above normal followup SELF-MGMT EDUC & TRAIN 1 PT Pending 2016 Appointment: Rika Bello WPtel: [phone] (30 min) Complex 11/08/2016 Visit Plan: Shingles-rash scabbed-no further treatment indicated-patient to call if pain uncontrolled N/V-check labs including UA DM- check labs today Thrush-RX for nystatin 10/28/2016 Appointment: Rika Bello WPtel: [address] [place], [place] [phone] (30 min) Complex 10/28/2016 Patient Education: Patient Medication Summary Completed 10/28/2016 Patient Education: Obesity Completed 10/28/2016 Appointment: Rika Bello WPtel: [address] [place], [place] [phone] (30 min) Complex 10/25/2016 Appointment: Lab Draw 10/21/2016 Patient Education: Patient Medication Summary Completed 10/21/2016 Visit Plan: Right knee pain-patient to schedule appt with Dr Allison Garcia-right arm-concerned for shingles-RX for acyclovir provided and instructed on use-call if symptoms do not resolve or if any worse. 10/13/2016 Appointment: Rika Bello WPtel: [address] [place], [place] [phone] (30 min) Complex 10/13/2016 Patient Education: Patient Medication Summary Completed 10/13/2016 Appointment: Rika Bello WPtel: [address] [place], [place] [phone] (30 min) Complex 10/11/2016 Appointment: Rika Bello WPtel: [address] [place], [place] [phone] [facility] - Annual Wellness Visit 10/04/2016 Visit [...] as directed. 09/23/2016 Appointment: Rika Bello WPtel: [address] [place] [address] (15 min) Moderate 09/23/2016 Patient Education: Patient [...] 09/13/2016 Care Plan: Referral Order SNOMED-CT : 405924586 Pending 09/13/2016 Appointment: Rika Bello WPtel: [address] [place], [place] [phone] (30 min) Complex 09/09/2016 Appointment: Rika Bello WPtel: [address] [place], [place] [phone] (30 min) Complex 09/08/2016 Visit Plan: Hypertension [...] Anemia-check CBC 08/09/2016 Appointment: Rika Bello WPtel: [phone] (30 min) Complex 08/09/2016 Patient Education: Patient [...] control. Yeast infection -rx for nystatin powder XPVK-rosjyrtee-kzmunu pneumonia -afib-patient is oxygen dependent due to severely compromised pulmonary and cardiac systems-will send orders to [facility] to continue oxygen 07/26/2016 Visit Plan: [...] control. Yeast infection -rx for nystatin powder LNHL-wqbpubnet-bdyufj pneumonia -afib-patient is oxygen dependent due to severely compromised pulmonary and cardiac systems-will send orders to [facility] to continue oxygen 07/26/2016 Visit Plan: [...] control. Yeast infection -rx for nystatin powder TLNV-zgeaqhwkm-tfbegq pneumonia -afib-patient is oxygen dependent due to severely compromised pulmonary and cardiac systems-will send orders to [facility] to continue oxygen 07/26/2016 Appointment: Rika Bello WPtel: [address] [phone] (30 min) Complex 07/26/2016 Patient Education: Patient Medication Summary Completed 07/26/2016 Appointment: Rika Bello WPtel: [phone] [phone] [place] (30 min) Complex 07/22/2016 Appointment: Rika Bello WPtel: [phone] [phone] (30 min) Complex 07/18/2016 Appointment: Rika Bello WPtel: [address] [phone] (30 min) Complex 07/01/2016 Appointment: Lab Draw 06/24/2016 Patient Education: Patient Medication Summary Completed 06/24/2016 Appointment: Rika Bello WPtel: [address] [phone] (30 min) Complex 2016 Visit Plan: [...] Obesity Completed 05/24/2016 Appointment: Rika Bello WPtel: [phone] (30 min) Complex 05/17/2016 Visit Plan: [...] glucose control. 04/19/2016 Appointment: Rika Bello WPtel: [phone] (30 min) Complex 04/19/2016 Patient Education: Patient Medication Summary Completed 04/19/2016 Patient Education: Obesity Completed 04/19/2016 Appointment: Rika Bello WPtel: [phone] (30 min) Complex 04/18/2016 Visit Plan: [...] to allow for greater blood glucose control. BDY-mygvttfpsr-vq changes in medications at this time. Dysuria-UA negative-needs pelvic exam due to pt c/o vaginal discharge 04/11/2016 Appointment: Rika Bello WPtel: [phone] (30 min) Complex 04/11/2016 Patient Education: Patient Medication Summary Completed 04/11/2016 Patient Education: Obesity Completed 04/11/2016 Appointment: R[facility] Bello WPtel: [phone] [phone] (30 min) Complex 04/08/2016 Visit Plan: Chronic [...] peripheral edema. 03/11/2016 Appointment: Rika Bello WPtel: [phone] (30 min) Complex 03/11/2016 Patient Education: Patient [...] on use 02/26/2016 Appointment: Rika Bello WPtel: [phone] (30 min) Complex 02/26/2016 Patient Education: Patient Medication Summary Completed 02/26/2016 Appointment: Rika Bello WPtel: [phone] (30 min) Complex 02/25/2016 Appointment: Rika Bello WPtel: [phone] (30 min) Complex 02/23/2016 Appointment: Lab [...] mold 02/02/2016 Appointment: Rika Bello WPtel: [address] [phone] [place] (30 min) Complex 02/02/2016 Patient Education: Patient Medication Summary Completed 02/02/2016 Appointment: Tessie Motta WPtel: [address] [facility] (15 min) Moderate 01/21/2016 Appointment: Rika Bello WPtel: [address] [phone] (30 min) Complex 01/14/2016 Visit Plan: [...] Patient Medication Summary Completed 12/17/2015 Visit Plan: Wrbdqtf-qcbexkpnc-jptz head injury on 12/05-did not go to ER-patient sent for STAT CT scan of head-schedule appt with Dr Dyer Adrenal insufficiency-patient suddenly stopped prednisone-instructed patient to restart and taper prednisone as directed Rib okvl-oyyov-shutdo fall-xray ribs 12/08/2015 Appointment: Riak Bello WPtel: [address] [phone] [place] (15 min) Moderate 12/08/2015 Appointment: Rika Bello WPtel: [address] [phone] [place] (30 min) Complex 12/08/2015 Patient Education: Patient Medication Summary Completed 12/08/2015 Care Plan: COMPLETE CBC AUTOMATED LOINC : 39426-4 Pending 12/08/2015 Visit Plan: Hypertension - well [...] will closely monitor pt. 11/12/2015 Referral: Mimi Mjeia Referral Initiated 11/12/2015 Patient Education: Patient Medication [...] Mejia 10/27/2015 Appointment: [facility]ello [facility]Ptel[facility] [phone] [place] (30 min) Complex 10/27/2015 Patient Education: Patient Medication Summary Completed 10/27/2015 Patient Education: Obesity Completed 10/27/2015 Care Plan: Referral Order SNOMED-CT : [id number] Pending 10/27/2015 Referral: Matt Pavon HPtel:[phone] [facility] [place] Referral Initiated 10/21/2015 Visit Plan: Medicare [...] stomach pain. 09/29/2015 Appointment: [facility]el[phone] [facility] - Welcome to Medicare visit 09/29/2015 Patient Education: Patient Medication Summary Completed 09/29/2015 Patient Education: Obesity Completed 09/29/2015 Care Plan: Referral Order SNOMED-CT : [id number] Pending 09/29/2015 Care Plan: BMI Above normal [...] 06/25/2015 Appointment: (30 min) Complex 05/05/2015 Appointment: Ace [facility]ika [facility]Ptel[phone] (30 min) Complex 04/27/2015 Visit Plan: Cellulitis [...] Completed 03/03/2015 Appointment: Rika Bello WPtel: 1015 [phone] [place] (30 min) Complex 02/24/2015 Appointment: (30 min) Complex 01/29/2015 Appointment: KaliaBingy WPtel: 101 [facility] (15 min) Moderate 01/22/2015 Visit Plan: Blister of right lower leg-fluids removed with #27 gauze needle and compression dressing applied-refer to wound care for evaluation and management-patient is at high risk of developing large ulcer due to diabetes, noncompliance and poor hygiene. Rash right leg-start oral abx and bactroban as directed Cgkvy-jbcfixtydgga-hel markie wraps, elevate leg, and again instructed [...] out. 01/01/2015 Appointment: Tessie Motta [facility]Ptel: [facility] [place] (15 min) Moderate 01/01/2015 Patient Education: [...] Care Plan: COMPLETE CBC AUTOMATED LOINC : 15240-2 Ordered 11/04/2014 Care Plan: URINALYSIS NONAUTO W/O SCOPE LOINC : 09019-0 Ordered 11/04/2014 Appointment: Follow up 10/07/2014 Visit Plan: Edema - pt has been advised to elevate legs to prevent dependent edema, compression has been recommended to help to naturally decrease peripheral edema. Diuretic use has been discussed and pt has been instructed in appropriate use of such medication as necessary to further attempt to reduce peripheral edema. Bhzxxjsnxe-wisnddaj-in change in treatment- continue compression hose-decrease salt/sodium in diet-call if symptoms worsen or do not resolve Bknuzxsrk-orpaqfg-ovlybfqd nasonex to twice daily as directed 09/08/2014 [...] they worsen. 06/12/2014 Appointment: Rika Bello WPtel: 1010 [facility] [place] [address] Follow up 06/12/2014 Patient Education: Patient Medication Summary Completed 06/12/2014 Patient Education: .Amazing charts Exercise for Sciatica Completed 06/12/2014 Care Plan: COMPLETE CBC AUTOMATED LOINC : 56726-1 Ordered 06/12/2014 Visit Plan: Cellulitis - continue [...] Completed 05/26/2014 Appointment: Tessie Motta WPtel: [facility] Lab Draw 04/21/2014 [...] pressure readings at home. 02/13/2014 Appointment: Tessie Mottal: 1015 [facility] Follow up 02/13/2014 Patient Education: Patient Medication [...] daily. 01/27/2014 Appointment: Tessie Motta WPtel: 1015 [facility] Follow up 01/27/2014 Patient Education: Patient Medication Summary Completed 01/27/2014 Appointment: Rika Bello WPtel: [phone] [phone] Follow up 01/02/2014 Visit Plan: Open wound of vbf-msmgqzxy-hvvzzpwm with dressing changes as directed-call for increase [...] Summary Completed 12/26/2013 Appointment: Tessie Motta WPtel: 1010 [facility] Follow up 12/24/2013 Visit Plan: Open wound of right leg-debrided today in the office-instructed on wound care-follow up as directed. Call with any questions, concerns, or worsening symptoms. Culture of wound today in the office-RX for abx sent to patient's pharmacy and instructed on use. Patient verbalized understanding of plan. 12/12/2013 Appointment: Rika Bello WPtel: [phone] [phone] [place] Other 12/12/2013 Patient Education: Patient Medication Summary Completed 12/12/2013 Appointment: Tessie Motta WPtel: 1014 [facility] Follow up 11/20/2013 Visit Plan: negative ua 11/18/2013 Appointment: Tessie Motta WPtel: [facility] Lab Draw 11/18/2013 Patient Education: Patient [...] Completed 11/14/2013 Visit Plan: Open wound right ocj-mtealm-nrqi if opens up Edema - pt has been advised to elevate legs to prevent dependent edema, compression has been recommended to help to naturally decrease peripheral edema. Diuretic use has been discussed and pt has been instructed in appropriate use of such medication as necessary to further attempt to reduce peripheral edema. 10/21/2013 Appointment: Rika Bello WPtel: [address] [place], [place] [phone] Follow up 10/21/2013 Patient Education: Patient Medication Summary Completed 10/21/2013 Appointment: Riak Bello WPtel: [address] [place], [place] [phone] Follow up 10/17/2013 Appointment: Tessie Motta WPtel: [address] [place], [place] [phone] Follow up 10/10/2013 Visit Plan: Hypertension - [...] for pain. 10/03/2013 Appointment: Rika Bello WPtel: [address] [place], [place] [phone] Follow up 10/03/2013 Patient Education: Patient Medication [...] of plan. 09/23/2013 Appointment: Tessie Motta WPtel: [address] [place], [place] [phone] Nurse Visit 09/23/2013 Patient Education: Patient Medication Summary Completed 09/23/2013 Visit Plan: Open wound of leg-debrided and cleaned wound today in the office and instructed patient on wound care-needs to keep clean at all time-return Reese for quick look at her leg. If [...] 2 WEEKS. 09/20/2013 Appointment: Rika Bello WPtel: [address] [place] [address] Follow up 09/20/2013 Patient Education: Patient Medication Summary Completed 09/20/2013 Patient Education: Hypertension Completed 09/20/2013 Appointment: Tessie Motta WPtel: [address] [place] [address] Follow up 09/16/2013 Visit Plan: Edema - [...] understanding. 09/10/2013 Appointment: Rika Bello WPtel: [facility] [address] Other 09/10/2013 Patient Education: Patient Medication Summary Completed 09/10/2013 Appointment: Rika Bello WPtel: [phone] [phone] Follow up 09/02/2013 Visit Plan: Diabetes [...] edema. 08/19/2013 Appointment: Rika Bello WPtel: [phone] [phone] Other 08/19/2013 Patient Education: Patient Medication Summary [...] as scheduled 08/01/2013 Appointment: Rika Bello WPtel: [address] [place], [place] [phone] [place] [address] Follow up 08/01/2013 Patient Education: Patient Medication Summary Completed 08/01/2013 Appointment: Rika Bello WPtel: [address] [place], [place] [phone] [place] [address] Follow up 07/25/2013 Appointment: Tessie Motta WPtel: [address] [place], [place] [phone] Follow up 07/25/2013 Visit Plan: Bister of foot-dressing changes discussed with patient and instructed her to keep her foot clean and dry-STOP WEARING FLIP FLOPS as they are causing friction over blistered area. Keep follow up appointment as scheduled. Call for redness, drainage or other s/s of infection. 07/19/2013 Appointment: Rika Bello WPtel: [address] [place], [place] [phone] Other 07/19/2013 Patient Education: Patient Medication Summary [...] peripheral edema. 07/15/2013 Appointment: Rika Bello WPtel: [address] [place], [place] [phone] [place] [address] Other 07/15/2013 Patient Education: Patient Medication Summary Completed 07/15/2013 Patient Education: Hypertension Completed 07/15/2013 Appointment: Rika Bello WPtel: [address] [place] [address] Follow up 07/01/2013 Appointment: Rika Bello WPtel: [address] [place], [place] [phone] [place] Lab Draw 06/28/2013 Patient Education: Patient [...] 900mg tid. 06/27/2013 Appointment: Tessie Motta WPtel: [facility] Other 06/27/2013 Patient Education: Patient Medication Summary Completed 06/27/2013 Appointment: Tessie Motta WPtel: [address] [place], [place] [phone] Other 06/24/2013 Visit Plan: Diabetes Mellitus - [...] THE AFTERNOON. 06/10/2013 Appointment: Tessie Motta WPtel: [facility] Follow up 06/10/2013 Patient Education: Patient Medication Summary Completed 06/10/2013 Appointment: Tessie Motta WPtel: [phone] [facility] [place] Follow up 06/06/2013 Visit Plan: Sinusitis [...] worsen. 05/07/2013 Appointment: Tessie Motta WPtel: 1015 [facility] Follow up 05/07/2013 Patient Education: Patient Medication Summary Completed 05/07/2013 Appointment: Tessie Motta WPtel: [facility] Follow up 04/30/2013 Visit Plan: Edema [...] acute changes. 04/16/2013 Appointment: Tessie Motta WPtel: [facility] Follow up 04/16/2013 Patient Education: Patient Medication Summary Completed 04/16/2013 Appointment: Tessie Motta WPtel: [address] [place], [place] [phone] Follow up 04/04/2013 Visit Plan: Lumbago-continue physical [...] edema. 03/21/2013 Appointment: Rika Bello WPtel: [facility] [place] [address] Follow up 03/21/2013 Patient Education: Patient Medication Summary Completed 03/21/2013 Appointment: Tessie Motta WPtel: [facility] [address] Follow up 03/20/2013 Appointment: Tessie Motta WPtel: [address] [place] [address] Follow up 03/05/2013 Visit Plan: Edema-significantly improved- [...] less controlled. 02/12/2013 Appointment: Rika Bello WPtel: [address] [place], [place] [phone] [place] [address] follow up 02/12/2013 Patient Education: Patient Medication [...] Dyspnea - recommended pt to see new stiff straw hat washer when he gets to [facility] for further evaluation and work-up. 02/04/2013 Appointment: Tessie Motta WPtel: [facility] Follow up 02/04/2013 Patient Education: Patient [...] improve. 01/17/2013 Appointment: Rika Bello WPtel: [phone] Follow up 01/17/2013 Patient Education: Patient Medication Summary Completed 01/17/2013 Patient Education: Hypertension Completed 01/17/2013 Appointment: Tessie Motta WPtel: [address] [place], [place] [phone] Follow up 01/16/2013 Appointment: Tessie Motta WPtel: [address] [place], [place] [phone] Follow up 01/10/2013 Appointment: Rika Bello WPtel: [address] [place] [address] [place] Lab Draw 01/01/2013 Patient Education: Patient [...] Hypothyroidism-check labs 12/31/2012 Appointment: Rika Bello WPtel: [facility] [place] [address] Follow up 12/31/2012 Appointment: Rika Bello WPtel: 1014 [phone] Sick 12/31/2012 Patient Education: Patient Medication [...] Check labs. 12/20/2012 Appointment: Rika Bello WPtel: [phone] [phone] Sick 12/20/2012 Patient Education: Patient Medication Summary Completed 12/20/2012 Patient Education: Hypertension Completed 12/20/2012 Appointment: Tessie Motta WPtel: 1015 [facility] Lab Draw 11/05/2012 Patient Education: Patient Medication Summary Completed 11/05/2012 Visit Plan: Bronchitis - acute case of bronchitis identified. Pt has been given antibiotics, breathing treatments as appropriate, and pt has been instructed to call if symptoms are not improved, or if symptoms acutely worsen. 10/29/2012 Appointment: Tessie Motta WPtel: [facility] Sick 10/29/2012 Patient Education: Patient Medication Summary Completed 10/29/2012 Visit Plan: Joint Injection-left SI joint - Pt was given post - injection instructions. The pt has been advised to use antiinflammatories post injection today, ice to the injected site, call if redness, warmth, or increased pain occurs at the site of injection. 09/21/2012 Appointment: Rika Bello WPtel: [facility] Follow up 09/21/2012 Patient Education: [...] of control. 09/06/2012 Appointment: Tessie Motta WPtel: 1012 [facility] [place] Follow up 09/06/2012 Patient Education: Patient Medication [...] readings are starting to become less controlled. Genglnpy-ayvrrkyt-zqzoixrp probiotic-continue to hold metformin and repeat labs before appt in 2 weeks. Call for abd pain, worsening diarrhea, or other concerns. 08/23/2012 Appointment: Tessie Motta WPtel: [facility]5 [facility] [place] Follow up 08/23/2012 Patient Education: Patient Medication [...] PLAN. 08/13/2012 Appointment: R[facility]Ptel: [facility]5 [facility] Follow up 08/13/2012 Patient Education: Patient Medication [...] acute concerns. 08/07/2012 Appointment: Rika Bello WPtel: [phone] [place] Other 08/07/2012 Patient Education: Patient Medication Summary Completed 08/07/2012 Patient Education: Hypertension Completed 08/07/2012 Visit Plan: UA-sent for culture 07/19/2012 Appointment: Rika eBllo WPtel: [phone] Lab Draw 07/19/2012 Patient Education: Patient Medication [...] directed 07/06/2012 Appointment: Rika Bello WPtel: [facility]5 [facility] Sick 07/06/2012 Patient Education: Patient Medication Summary [...] today 06/07/2012 Appointment: Tessie Motta WPtel: 1015 [facility] Follow up 06/07/2012 Appointment: Tessie Motta WPtel: [facility] [place] Follow up 06/07/2012 Patient Education: Patient [...] days. 05/28/2012 Appointment: Rika Bello WPtel: 1015 [phone] Follow up 05/28/2012 Patient Education: Patient Medication [...] edema. 05/17/2012 Appointment: Rika Bello WPtel: 1015 [phone] ER Follow UP 05/17/2012 Patient Education: Patient [...] Motta WPtel: [facility] Follow up 05/02/2012 Patient Education: Patient Medication Summary Completed 05/02/2012 Patient Education: Hypertension Completed 05/02/2012 Appointment: Tessie Motta WPtel: [facility] Follow up 04/25/2012 Visit Plan: Sinusitis - [...] concerns. 04/10/2012 Appointment: Rika Bello WPtel: 1015 [phone] Follow up 04/10/2012 Patient Education: Patient Medication [...] on Monday02/27/2012 Appointment: Rika Bello WPtel: 1015 [phone] [place] Follow up 02/27/2012 Patient Education: Patient [...] thighs. 02/15/2012 Appointment: Rika Bello WPtel: 1015 [phone] [place] Follow up 02/15/2012 Patient Education: Patient [...] toes to thighs. RX sent to patient's phamracy. Chest xray at the hospital as well. [...] urine. 02/01/2012 Appointment: Rika Bello WPtel: 1015 [phone] Other 02/01/2012 Patient Education: Patient Medication [...] buttocks 12/14/2011 Appointment: Tessie Motta WPtel: 1015 [facility] [place] Other 12/14/2011 Patient Education: Patient Medication Summary Completed 12/14/2011 Appointment: Tessie Motta WPtel: 1015 [facility] Follow up 12/08/2011 Visit Plan: N/V/D [...] controlled. 11/30/2011 Appointment: Rika Bello WPtel: 1010 [phone] Other 11/30/2011 Patient Education: Patient Medication Summary [...] pain. 11/17/2011 Appointment: Tessie Motta WPtel: [facility]7 [facility] [place] Other 11/17/2011 Patient Education: Patient Medication [...] - uncontrolled - will consult her primary shape hand for assistance with control her her heart rate. Ulcer of toe - continue with topical antibiotics as previously directed, return to clinic as previously directed, call for acute change in symptoms, worsening redness, warmth, discharge. 11/03/2011 Appointment: Tessie Motta WPtel: [facility] Other 11/03/2011 Patient Education: Patient Medication Summary [...] discharge. 10/24/2011 Appointment: Tessie Motta WPtel: 1015 [facility] Other 10/24/2011 Patient Education: Patient Medication [...] with lymphoma. 09/26/2011 Appointment: Rika Bello WPtel: [facility] Other 09/26/2011 Patient Education: Patient Medication Summary [...] Hypertension Completed 2011 Appointment: Tessie Motta WPtel: [facility] Other 09/05/2011 Visit Plan: Sinusitis - [...] medication. 09/01/2011 Appointment: Tessie Motta WPtel: [address] Other 09/01/2011 Patient Education: Patient Medication Summary Completed 09/01/2011 Visit Plan: Sinusitis - continue with ciprofloxacin and start on corcidin HBP. Anxiety - start the xanax 0.5mg 1/2 pill twice daily. 08/15/2011 Appointment: Tessie Motta WPtel: [facility] [address] Other 08/15/2011 Appointment: Tessie Motta WPtel: [facility] [address] Other 08/15/2011 Patient Education: Patient Medication [...] Plan for demerol injection today at the [facility]. 08/09/2011 Appointment: Rika Bello WPtel: [address] [place] [address] Other 08/09/2011 Patient Education: Patient Medication Summary [...] not resolve 08/01/2011 Appointment: Rika Bello WPtel: [address] [place] [address] Other 08/01/2011 Patient Education: Patient Medication Summary Completed 08/01/2011 Appointment: Rika Bello WPtel: [address] [place] [address] Other 07/26/2011 Appointment: Tessie Motta WPtel: [address] [place], [place] [address] Other 07/18/2011 Visit Plan: Diabetes Mellitus - [...] sparingly. 06/20/2011 Appointment: Tessie Motta WPtel: [address] Other 06/20/2011 Patient Education: Patient Medication [...] 1 month. 04/18/2011 Appointment: Tessie Motta WPtel: [facility] [address] Other 04/18/2011 Patient Education: Patient Medication Summary Completed 04/18/2011 Patient Education: High Blood Pressure: Essential Hypertension Completed 2010 Appointment: Tessie Motta WPtel: [facility] [address] Other 04/12/2011 Appointment: Tessie Motta WPtel: [facility]0 [facility] Other 02/16/2011 Referral: Matt Pavon HPtel:[phone] [facility] [place] Referral Initiated Referral: Yareli Raines [...] change in symptoms, worsening redness, warmth, discharge. Hvemquug-xfkmppnsslqy-opryi labs today-patient has been given orders multiple [...] leg-start oral abx and bactroban as directed Aoikt-ejucckxxzdjo-dab markie wraps, elevate leg, and again instructed [...] nebulizer and supplies due to mold . Dental abscess - will send RX [...] drainage or other s/s of infection. . Rkc-admnnqgnim-gd changes Anemia-check cbc today Dental infection-on clindamycin [...] change in blood pressure readings at home. HG-euhezntjslwk-zrdvlnuib strict diet and exercise with patient Low jegdzuoik-znludqbo-hhkcalev to monitor Abd awcv-xfrantji-kw changes FOR CHOLESTEROL - THE NEW DOSE [...] readings are starting to become less controlled. Wdwousbq-bjlfrqgo-xtpljbwi probiotic-continue to hold metformin and repeat labs before appt in 2 weeks. Call for abd pain, worsening diarrhea, or other concerns. check UA . Dysuria-urinary incontinence-culture urine HTN-elevated today-monitor at home -follow up with shape hand . Open wound of cbm-ikokfmrj-ytofwrxj with dressing changes as directed-call for increase [...] symptom management sparingly. . Open wound right jmy-tjyopa-dzyz if opens up Edema - pt has been advised to elevate legs to prevent dependent edema, compression has been recommended to help to naturally decrease peripheral edema. Diuretic use has been discussed and pt has been instructed in appropriate use of such medication as necessary to further attempt to reduce peripheral edema. . Ueudtnc-oumqcvmxi-meys head injury on 12/05-did not go to ER-patient sent for STAT CT scan of head-schedule appt with Dr Dyer Adrenal insufficiency-patient suddenly stopped prednisone-instructed patient to restart and taper prednisone as directed Rib vtug-fyyrb-kwwpnw fall-xray ribs START CHECKING BLOOD SUGARS!!!! BRING [...] to allow for greater blood glucose control. WAD-ohskeemnvs-nv changes in medications at this time. Dysuria-UA [...] - uncontrolled - will consult her primary shape hand for assistance with control her her heart [...] with results.Patient and verbalized understanding of plan. VGE-qwtxwllxynp-psuvb labs-monitor blood pressure and heart rate closely- [...] [facility]. . Sinusitis - Pt [...] for diflucan-call if symptoms do not resolve [place] balm over the counter for the knee. [...] to further attempt to reduce peripheral edema. Tkhvxrbljo-jlcqarkd-qm change in treatment-continue compression hose-decrease salt/sodium in diet-call if symptoms worsen or do not resolve Jyqejpxuc-hzznhwn-qgygajpq nasonex to twice daily as directed pt [...] pt was given a script for a quality lead prednisone taper - pt has not started [...] Q HS RESCHEDULE APPT WITH DR YANNA HoCpswhcayg-jxvfrbhee-qu for bactroban ointment provided and instructed on use IDA-uhedlwhalx-kq change in medications Mildly elevated liver enzymes-discussed [...] Dyspnea - recommended pt to see new stiff straw hat washer when he gets to [facility] for further evaluation and work-up. refer [...] [facility] TABLETS of LASIX and [...] toes to thighs. [facility] the [facility] as [...] control. Yeast infection -rx for nystatin powder GDFF-ubemrsmpc-qalypf evxncspey-tegh-uihkgcg is oxygen dependent due to severely compromised pulmonary and cardiac systems-will send orders to [facility] to continue oxygen . Diabetes Mellitus [...] control. Yeast infection -rx for nystatin powder JKVG-qgltjapqb-vqjppw cywfjkbgh-cehz-yguzfpu is oxygen dependent due to severely compromised pulmonary and cardiac systems-will send orders to [facility] to continue oxygen . Diabetes Mellitus [...] control. Yeast infection -rx for nystatin powder JPYZ-lvfeavdeq-vfmmwo umakjnovb-mbdn-lwylfiv is oxygen dependent due to severely compromised pulmonary and cardiac systems-will send orders to [facility] to continue oxygen . 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 Diabetes Mellitus - ucontrolled- I [...] to become less controlled. Low potassium-check labs TGN-jxklvkhlvr-se changes Afib-check digoxin level with labs Abdominal pain-refill levsin for prn use -call if pain uncontrolled DR Yareli Raines-you need to reschedule your appt with her -she is a carpet installation specialist . Diabetes Mellitus - ucontrolled- I [...] to become less controlled. Low potassium-check labs MQX-qifyhkbkni-jy changes Afib-check digoxin level with labs Abdominal [...] PAIN MANAGEMENT FOR INJECTIONS STOP BY [employer] FOR NEW CPAP SUPPLIES . Hypertension - [...] every night DM-check Hgb A1C Hypothyroidism-check level Kpqjgxk-qeihuqzzhq-emd well controlled-increase cymbalta-recommend counseling . Diabetes Mellitus [...] she needs to...RESCHEDULE APPT WITH DR RAINES SAG-bhbehpnctu-tw change in medications CPAP NEBULIZER CHECK UA [...]
== END 2018-06-04 13:54 | disposition home or self-care (01) ==
LOC: EDUNIT# 10:18 → ER 10:19
DX: S06.0X1A Concussion with loss of consciousness of 30 minutes or less, initial encounter (principal); S91.102A Unspecified open wound of left great toe without damage to nail, initial encounter; R55 Syncope and collapse; M25.531 Pain in right wrist; M25.561 Pain in right knee; R04.0 Epistaxis; J44.9 Chronic obstructive pulmonary disease, unspecified; G47.30 Sleep apnea, unspecified; I48.91 Unspecified atrial fibrillation; I25.10 Atherosclerotic heart disease of native coronary artery without angina pectoris; E78.00 Pure hypercholesterolemia, unspecified; I10 Essential (primary) hypertension; G51.0 Bell's palsy; F41.9 Anxiety disorder, unspecified; F32.9 Major depressive disorder, single episode, unspecified; E11.40 Type 2 diabetes mellitus with diabetic neuropathy, unspecified; E03.9 Hypothyroidism, unspecified; K21.9 Gastro-esophageal reflux disease without esophagitis; K58.9 Irritable bowel syndrome, unspecified; D64.9 Anemia, unspecified; Z87.19 Personal history of other diseases of the digestive system; R40.2142 Coma scale, eyes open, spontaneous, at arrival to emergency department; R40.2252 Coma scale, best verbal response, oriented, at arrival to emergency department; R40.2362 Coma scale, best motor response, obeys commands, at arrival to emergency department; Z88.0 Allergy status to penicillin; Z88.2 Allergy status to sulfonamides; Z79.01 Long term (current) use of anticoagulants; Z79.4 Long term (current) use of insulin; W01.198A Fall on same level from slipping, tripping and stumbling with subsequent striking against other object, initial encounter; Y92.002 Bathroom of unspecified non-institutional (private) residence as the place of occurrence of the external cause
CPT/HCPCS: 36415; 51702; 70450; 70486; 71045; 72125; 72128; 72131; 73110; 73130; 73562; 80053; 81000; 82962; 83735; 85025

== ENCOUNTER 2018-07-27 18:33 | Inpatient (IN) | payer MEDICARE ==
[~2018-07-27] VITALS: Ht 165.1 cm; Wt 102.1 kg
[~2018-07-27 18:33] MED LIST changes: -GABA600T2 PO; -LEVA1.2516 INH; +LEVA1.2543 INH
[2018-07-27] MEDS ORDERED: IBUPROFEN 800 MG (MOTRIN) TAB PO ONE (18:45)
[2018-07-27] MEDS ORDERED: ACETAMINOPHEN 500 MG TAB (TYLENOL) PO ONE (18:45)
--- NOTE | 2018-07-27 18:50 | ED General ---
General Stated Complaint: CONFUSION Source of Information: Patient, EMS History of Present Illness Date Seen by Provider: Jul 27, 2018 Time Seen by Provider: 18:32 Initial Comments PT ARRIVES VIA EMS FROM [facility] PT WITH REPORTED ALTERED MENTAL STATUS SINCE LAST PM, AND HALLUCINATING EMS REPORT THAT PT HAD TEMP OF 104.2 BY EMS--STAFF AT [facility] WERE UNAWARE THAT PT HAD FEVER, THEREFORE IT HAS NOT BEEN TREATED. PT STATES SHE HAS BEEN COLD TODAY PT HAS HAD NAUSEA/VOMITING/DIARRHEA AND GENERALIZED ABDOMINAL PAIN TODAY -- UNKNOWN AMOUNT AND NOT EATING OR DRINKING TODAY PT HAS BEEN UNSTEADY ON HER FEET TODAY PT DID FALL LAST NIGHT AND IS ON ELIQUIS--PT STATES SHE TRIPPED ON A RUG WHILE GOING TO THE BATHROOM LAST NIGHT, DENIES ANY INJURY FROM THAT ACCUCHECK 177 BY EMS--PT IS DIABETIC PT HAS COPD, BUT NO COUGH OR DYSPNEA NOTED AND O2 SATS 97% ON ROOM AIR. PT'S RECENTLY AND MOVED FROM HOME TO [facility] RECENTLY PCP: DR. JOHNSON ROD CUP FILLER: DR. CLEMENTE THIN FILM TECHNICIAN: DR. WU Allergies and Home Medications Allergies Coded Allergies: Penicillins (Verified Allergy, Severe, SWELLING, HIVES, THROAT SWELLED, 01/21/16) PATIENT HAS RECEIVED CEFEPIME WITHOUT ISSUE Sulfa (Sulfonamide Antibiotics) (Verified Allergy, Severe, TONGUE SWELLED , 01/21/16) Tetanus & Diphtheria Tox,Adult (Verified Allergy, Severe, SWELLING OF THROAT, 01/21/16) codeine (Verified Allergy, Unknown, HAS RECEIVED LORTAB IN THE PAST, ) egg (Unverified Allergy, Unknown, 06/29/16) FROM UNCODED ALLERGIES Home Medications Albuterol Sulfate 8.5 Gm Hfa.aer.ad, 2 PUFF INH Q4H PRN for SHORTNESS OF BREATH, (Reported) Albuterol Sulfate 2.5 Mg/3 Ml Vial.neb, 2.5 MG IH Q4H PRN for SHORTNESS OF BREATH, (Reported) Alprazolam 0.5 Mg Tablet, 0.5 MG PO TID PRN for ANXIETY, (Reported) Apixaban 5 Mg Tablet, 5 MG PO BID, (Reported) Aspirin 81 Mg Tablet.dr, 81 MG PO HS, (Reported) Azithromycin 250 Mg Tablet, 250 MG PO DAILY Prescribed by: DAISY JOHNSON on 02/06/17919 Budesonide/Formoterol Fumarate 10.2 Gm Hfa.aer.ad, 2 PUFF IH BID, (Reported) Calcium Carbonate 1,177 Mg Tab.chew, 2 TAB PO TID PRN for INDIGESTION, (Reported ) Colestipol HCl 1 Gm Tablet, 1 GM PO BID, (Reported) Cyclobenzaprine HCl 10 Mg Tablet, 10 MG PO Q8H PRN for MUSCLE SPASMS, (Reported) Digoxin 125 Mcg Tablet, 0.125 MG PO HS Prescribed by: DAISY JOHNSON on 02/06/17919 Diltiazem HCl 240 Mg Cap.er.24h, 240 MG PO DAILY, (Reported) Diphenhydramine HCl 25 Mg Capsule, 50 MG PO QID PRN for ITCHING, (Reported) Duloxetine HCl 60 Mg Capsule.dr, 60 MG PO DAILY, (Reported) TAKES ALONG WITH 30MG CAPSULES FOR A TOTAL DAILY DOSE OF 90MG Duloxetine HCl 30 Mg Capsule.dr, 30 MG PO DAILY, (Reported) TAKES ALONG WITH 60MG CAPSULE FOR A TOTAL DAILY DOSE OF 90MG Ergocalciferol (Vitamin D2) 50,000 Unit Capsule, 50,000 UNIT PO Mo, (Reported) Fexofenadine HCl 180 Mg Tablet, 180 MG PO BID, (Reported) Flecainide Acetate 100 Mg Tablet, 100 MG PO BID, (Reported) Fluticasone Propionate 16 Gm Renick.susp, 1 SPRAY NS HS, (Reported) Furosemide 40 Mg Tablet, 40 MG PO 1000,1500, (Reported) Gabapentin 600 Mg Tablet, 900 MG PO TID, (Reported) TAKES 1 & 1/2 (600MG) TABLETS Hydrocodone/Acetaminophen 1 Each Tablet, 1-2 TAB PO Q6H PRN for PAIN-MODERATE, ( Reported) ONLY TAKES WHEN OUT OF PERCOCET Insulin Detemir 100 Unit/1 Ml Insuln.pen, 50 UNITS SC BID, (Reported) Lactobacillus Acidophilus 1 Each Tablet, 1 EACH PO TID Prescribed by: DAISY JOHNSON on 02/06/17919 Levothyroxine Sodium 88 Mcg Tablet, 88 MCG PO DAILY, (Reported) LAST FILLED #30 08-19-16 Metoprolol Succinate 100 Mg Tab.er.24h, 100 MG PO BID, (Reported) Montelukast Sodium 10 Mg Tablet, 10 MG PO HS, (Reported) Naphazoline HCl/Pheniramine 15 Ml Drops, 1-2 DROP OU QID PRN for ALLERGIES, ( Reported) Nystatin 1 Each Powder.ea., TOP QID PRN for RASH, (Reported) Oxycodone HCl/Acetaminophen 1 Each Tablet, 1-2 TAB PO Q6H PRN for PAIN-MODERATE, (Reported) Pantoprazole Sodium 40 Mg Tablet.dr, 40 MG PO BID, (Reported) Promethazine HCl 25 Mg Tablet, 25 MG PO Q8H PRN for NAUSEA/VOMITING-2ND LINE, ( Reported) Ropinirole HCl 1 Mg Tablet, 0.5 MG PO HS, (Reported) TAKES 1/2 (1MG) TABLET Patient Home Medication List Home Medication List Reviewed: Yes Review of Systems Review of Systems Constitutional: see HPI, fever, malaise, weakness, other (LIMITED HISTORIAN) EENTM: no symptoms reported Respiratory: no symptoms reported; No cough, No short of breath Cardiovascular: no symptoms reported Gastrointestinal: see HPI, abdominal pain, diarrhea, loss of appetite, nausea, vomiting Psychiatric/Neurological: See HPI; Denies Headache Past Jjymegk-Nvchji-Vtwlaz Hx Patient Social History Alcohol Use: Denies Use Recreational Drug Use: No Smoking Status: Never a Smoker 2nd Hand Smoke Exposure: Yes (DAD WAS HEAVY SMOKER) Recent Foreign Travel: No Contact w/Someone Who Travel: No Recent Hopitalizations: No Immunizations Up To Date Tetanus Booster (TDap): Unknown Date of Pneumonia Vaccine: Jan 31, 2012 Seasonal Allergies Seasonal Allergies: Yes Past Medical History Surgeries: Yes (KNEE SCOPES X3 - D&C'S; CARDIAC ABLATION FOR A. 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: 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, Menopausal Sexually Transmitted Disease: No HIV/AIDS: No Genitourinary: Yes UTI-Chronic Gastrointestinal: Yes Colitis, Gastroesophageal Reflux, Diverticulosis, Irritable Bowel Musculoskeletal: Yes (CHRONIC BACK PAIN AND SCIATICA; CHRONIC NECK AND SHOULDER PAIN ) Arthritis, Fibromyalgia, Chronic Back Pain Endocrine: Yes (OBESITY) Diabetes, Insulin dep, Hypothyroidsim HEENT: Yes Tonsilitis Loss of Vision: Denies Hearing Impairment: Denies Cancer: No Psychosocial: Yes Anxiety, Depression Integumentary: No Blood Disorders: Yes (CHRONIC ANEMIA) Adverse Reaction/Blood Tranf: No Family Medical History Cardiovascular disease 19 FATHER 19 MOTHER Diabetes mellitus 19 MOTHER Irritable bowel syndrome G8 BROTHER Myocardial infarction 19 FATHER 19 MOTHER TIAs 19 MOTHER Heart Disease, Diabetes, GI Disease, Hypertension, Stroke Physical Exam Vital Signs Vital Signs - First Documented 07/27/18 07/27/18 19:28 20:04 Temp 103.0 Pulse 94 Resp 18 B/P (MAP) 172/72 (105) Pulse Ox 99 O2 Delivery Nasal Cannula O2 Flow Rate 2.00 Capillary Refill : Height, Weight, BMI Height: 5'2.00" Weight: 217lbs. 2.0oz. 98.764126cs; 44.3 BMI Method:Stated General Appearance: No Apparent Distress, Obese, Other (MILDLY LETHARGIC, PT AWAKE AND ALERT, AND IS TALKING AT LENGTH--RAMBLING ON AT TIMES. NOT ACTUALLY CONFUSED BUT HAS SOME DIFFICULTY STAYING ON SUBJECT. PT HAS EYES OPEN AND IS LOOKING AROUND BUT DOES NOT ACTUALLY MAKE EYE CONTACT WHEN SHE IS TALKING TO ME) HEENT: PERRL/EOMI (PUPILS PINPOINT), Other (ORAL MUCOSA DRY; POOR DENTITION) Respiratory: Decreased Breath Sounds (IN BASES); No Rales, No Rhonci, No Wheezing Cardiovascular: Regular Rate, Rhythm, No Edema, No JVD, No Murmur Gastrointestinal: Soft, Abnormal Bowel Sounds (DECREASED); No Hernia; Tenderness (DIFFUSE) Back: No CVA Tenderness Extremity: Normal Capillary Refill, Normal Range of Motion, Non Tender, No Calf Tenderness, No Pedal Edema Neurologic/Psychiatric: Alert, No Motor/Sensory Deficits, Other (PT IS GROSSLY ORIENTED TO PERSON, PLACE, TIME, SITUATION. ) Skin: Normal Color, Warm/Dry (VERYWARM) Focused Exam Lactate Level 07/27/18 18:42: Lactic Acid Level 2.85*H 07/27/18 21:48: Lactic Acid Level 2.24*H Lactic Acid Level Progress/Results/Core Measures Suspected Sepsis SIRS Temperature: Pulse: Respiratory Rate: Laboratory Tests 07/27/18 18:42: White Blood Count 17.4H Blood Pressure / Mean: 07/27/18 18:42: Lactic Acid Level 2.85*H 07/27/18 21:48: Lactic Acid Level 2.24*H Laboratory Tests 07/27/18 18:42: Creatinine 1.22, INR Comment 1.2, Platelet Count 269, Total Bilirubin 0.5 Results/Orders Lab Results Laboratory Tests Test 07/27/18 18:42 07/27/18 19:20 07/27/18 21:48 07/28/18 01:04 Range/Units White Blood Count 17.4 H 4.3-11.0 10^3/uL Red Blood Count 3.52 L 4.35-5.85 10^6/uL Hemoglobin 10.7 L 11.5-16.0 G/DL Hematocrit 33 L 35-52 % Mean Corpuscular Volume 95 80-99 FL Mean Corpuscular Hemoglobin 30 25-34 PG Mean Corpuscular Hemoglobin Concent 32 32-36 G/DL Red Cell Distribution Width 16.3 H 10.0-14.5 % Platelet Count 269 130-400 10^3/uL Mean Platelet Volume 10.1 7.4-10.4 FL Neutrophils (%) (Auto) 91 H 42-75 % Lymphocytes (%) (Auto) 5 L 12-44 % Monocytes (%) (Auto) 3 0-12 % Eosinophils (%) (Auto) 0 0-10 % Basophils (%) (Auto) 0 0-10 % Neutrophils # (Auto) 15.9 H 1.8-7.8 X 10^3 Lymphocytes # (Auto) 0.9 L 1.0-4.0 X 10^3 Monocytes # (Auto) 0.6 0.0-1.0 X 10^3 Eosinophils # (Auto) 0.1 0.0-0.3 10^3/uL Basophils # (Auto) 0.0 0.0-0.1 10^3/uL Neutrophils % (Manual) 92 % Lymphocytes % (Manual) 3 % Monocytes % (Manual) 2 % Eosinophils % (Manual) 3 % Prothrombin Time 15.3 H 12.2-14.7 SEC INR Comment 1.2 0.8-1.4 Activated Partial Thromboplast Time 39 H 24-35 SEC Sodium Level 136 135-145 MMOL/L Potassium Level 4.3 3.6-5.0 MMOL/L Chloride Level 92 L 98-107 MMOL/L Carbon Dioxide Level 30 21-32 MMOL/L Anion Gap 14 5-14 MMOL/L Blood Urea Nitrogen 19 H 7-18 MG/DL Creatinine 1.22 0.60-1.30 MG/DL Estimat Glomerular Filtration Rate 44 BUN/Creatinine Ratio 16 Glucose Level 160 H 70-105 MG/DL Lactic Acid Level 2.85 *H 2.24 *H 0.50-2.00 MMOL/L Calcium Level 9.1 8.5-10.1 MG/DL Corrected Calcium 9.0 8.5-10.1 MG/DL Magnesium Level 1.9 1.8-2.4 MG/DL Total Bilirubin 0.5 0.1-1.0 MG/DL Aspartate Amino Transf (AST/SGOT) 27 5-34 U/L Alanine Aminotransferase (ALT/SGPT) 23 0-55 U/L Alkaline Phosphatase 137 H 40-136 U/L Troponin I < 0.028 <0.028 NG/ML B-Type Natriuretic Peptide 94.5 <100.0 PG/ML Total Protein 7.4 6.4-8.2 GM/DL Albumin 4.1 3.2-4.5 GM/DL Amylase Level 15 L 25-125 U/L TSH [place] Testing 1.73 0.35-4.94 UIU/ML Digoxin Level 0.73 L 0.80-2.00 NG/ML Urine Color YELLOW Urine Clarity CLEAR Urine pH 5 5-9 Urine Specific [place] 1.010 L 1.016-1.022 Urine Protein NEGATIVE NEGATIVE Urine Glucose (UA) NEGATIVE NEGATIVE Urine Ketones NEGATIVE NEGATIVE Urine Nitrite NEGATIVE NEGATIVE Urine Bilirubin NEGATIVE NEGATIVE Urine Urobilinogen NORMAL NORMAL MG/DL Urine Leukocyte Esterase NEGATIVE NEGATIVE Urine RBC (Auto) NEGATIVE NEGATIVE Urine RBC RARE /HPF Urine WBC NONE /HPF Urine Squamous Epithelial Cells 0-2 /HPF Urine Crystals NONE /LPF Urine Bacteria FEW H /HPF Urine Casts NONE /LPF Urine Mucus NEGATIVE /LPF Urine Culture Indicated NO Glucometer 303 H 70-110 MG/DL Micro Results Microbiology 07/27/18 Influenza Types A,B Antigen (ROBIN) - Final, Complete My Orders Orders - GUSTAVO,WOODY K DO Saline Lock/Iv-Start (07/27/18 18:40) Ekg Tracing (07/27/18 18:40) Catheter(Urinary) Insert & Ass 03,15 (07/27/18 18:40) Monitor-Rhythm Ecg Trace Only (07/27/18 18:40) Ct Head Wo (07/27/18 18:40) Amylase (07/27/18 18:40) Cbc With Automated Diff (07/27/18 18:40) Comprehensive Metabolic Panel (07/27/18 18:40) Digoxin (07/27/18 18:40) Lactic Acid Analyzer (07/27/18 18:40) Magnesium (07/27/18 18:40) Protime With Inr (07/27/18 18:40) Partial Thromboplastin Time (07/27/18 18:40) Thyroid Analyzer (07/27/18 18:40) Troponin I (07/27/18 18:40) Ua Culture If Indicated (07/27/18 18:40) Blood Culture (07/27/18 18:40) Influenza A And B Antigens (07/27/18 18:40) Chest 1 View, Ap/Pa Only (07/27/18 18:40) Acetaminophen Tablet (Tylenol Tablet) (07/27/18 18:45) Ibuprofen Tablet (Motrin Tablet) (07/27/18 18:45) Manual Differential (07/27/18 18:42) Saline Lock/Iv-Start (07/27/18 20:02) Ns Iv 1000 Ml (Sodium Chloride 0.9%) (07/27/18 20:02) BNP (07/27/18 20:44) Ceftriaxone For Iv Use (Rocephin For I (07/27/18 20:45) Furosemide Injection (Lasix Injection) (07/27/18 20:45) Methylprednisolone Sod Succ (Solu-Medrol (07/27/18 20:45) Albuterol/Ipra Inhalation Soln (Duoneb I (07/27/18 20:45) Rt Request For Service (07/27/18 20:44) Svn Small Volume Nebulizer (07/27/18 20:44) Ceftriaxone For Iv Use (Rocephin For I (07/27/18 21:07) Ns (Ivpb) (Sodium Chloride 0.9% Ivpb Bag (07/27/18 21:08) Ropinirole Tablet (Requip Tablet) (07/27/18 21:30) Ekg Tracing (07/27/18 21:28) O2 (07/27/18 21:28) Medications Given in ED Current Medications Medications Dose Ordered Sig/Jorge Route Start Time Stop Time Status Last Admin Dose Admin Acetaminophen 1,000 mg ONCE ONCE PO 07/27/18 18:45 07/27/18 18:46 DC 07/27/18 19:17 1,000 MG Ceftriaxone Sodium 1000 mg/ Sterile Water 10 ml @ 200 mls/hr ONCE ONCE IV 07/27/18 20:45 07/27/18 21:11 DC 07/27/18 21:12 200 MLS/HR Furosemide 40 mg ONCE ONCE IVP 07/27/18 20:45 07/27/18 21:14 DC 07/27/18 21:12 40 MG Ibuprofen 800 mg ONCE ONCE PO 07/27/18 18:45 07/27/18 18:46 DC 07/27/18 19:15 800 MG Methylprednisolone Sodium Succinate 125 mg ONCE ONCE IVP 07/27/18 20:45 07/27/18 21:11 DC 07/27/18 21:12 125 MG Sodium Chloride 1,000 ml @ 0 mls/hr Q0M ONCE IV 07/27/18 20:02 07/27/18 20:07 DC 07/27/18 20:12 1,000 MLS/HR Vital Signs/I&O 07/27/18 07/27/18 07/27/18 07/27/18 19:28 20:04 21:18 22:36 Temp 103.0 102.3 100.4 100.2 Pulse 94 85 82 81 Resp 18 18 16 16 B/P (MAP) 172/72 (105) 123/ 115/60 (78) 137/59 (85) Pulse Ox 99 100 97 O2 Delivery Nasal Cannula Nasal Cannula Nasal Cannula Nasal Cannula O2 Flow Rate 2.00 2.50 2.50 07/27/18 07/27/18 07/28/18 07/28/18 22:45 23:55 00:00 01:00 Temp 97.1 97.9 Pulse 80 79 78 77 Resp 20 18 B/P (MAP) 133/77 (95) 129/57 (81) Pulse Ox 95 97 O2 Delivery Nasal Cannula Nasal Cannula O2 Flow Rate 2.50 2.00 07/28/18 07/28/18 02:02 02:06 Temp 98.2 Pulse 78 Resp 20 B/P (MAP) 128/64 (85) Pulse Ox 98 O2 Delivery Nasal Cannula Nasal Cannula O2 Flow Rate 2.00 2.00 07/28/18 00:00 Intake Total 100 ml Balance 100 ml Capillary Refill : Progress Note : Progress Note PT WITH IMPROVED MENTATION, MORE ALERT AND ACTIVE--PT WITH SIGNIFICANT CONSTANT MOVEMENTS OF LEGS AND ARMS SON ARRIVES LATER, AND DOES REPORT THAT PT IS STILL HALLUCINATING OFF AND ON-- SEEING AND TALKING TO PEOPLE THAT AREN'T THERE. TEMP DOWN, O2 SATS REMAINED IN UPPER 90'S ON O2 AT 2L/NC INCREASED AERATION AFTER NEB TREATMENT NO DETERIORATION IN PT'S CONDITION DURING ER STAY ECG Initial ECG Impression Date: Jul 27, 2018 Initial ECG Impression Time: 19:34 Initial ECG Rate: 88 Initial ECG Rhythm: Normal Sinus (MUCH ARTIFACT) Initial ECG Impression: Nonspecific Changes, 1st Degree AV Block EKG : EKG Time: 22:18 Rate: 81 Rhythm: Normal Sinus Diagnostic Imaging Comments CXR--RUL INFILTRATE, CARDIOMEGALY, MILD VASCULAR CONGESTION--PER RADIOLOGIST REPORT AT 2040 CT HEAD--NO ACUTE PROCESS, PER RADIOLOGIST REPORT @ 2040 Reviewed: Reviewed by Me Departure Communication (Admissions) 2117--SPOKE WITH DR. KIM, HOSPITALIST, ACCEPTS PT FOR ADMIT 2119--SPOKE WITH DR. WU FOR PULMONARY CONSULT 2124--SPOKE WITH DR. FONSECA FOR CARDIOLOGY CONSULT Impression Primary Impression: Sepsis Additional Impressions: COPD exacerbation Altered mental status History of atrial fibrillation Pneumonia CHF (congestive heart failure) Abdominal pain Nausea vomiting and diarrhea Disposition: ADMITTED INPATIENT Condition: Improved Admissions Decision to Admit Reason: Admit from ER (General) Decision to Admit/Date: Jul 27, 2018 Time/Decision to Admit Time: 21:20 Departure-Patient Inst. Referrals: DAISY JOHNSON MD (PCP/Family) Primary Care Physician WOODY CHEN DO Jul 27, 2018 18:50
[2018-07-27 18:54] LABS: BASOPHILS % (AUTO) 0 % (0-10); EOSINOPHILS # (AUTO) 0.1 10^3/uL (0.0-0.3); EOSINOPHILS % (AUTO) 0 % (0-10); HEMATOCRIT 33 % (35-52); HEMOGLOBIN 10.7 G/DL (11.5-16.0); LYMPHOCYTES # (AUTO) 0.9 X 10^3 (1.0-4.0); LYMPHOCYTES % (AUTO) 5 % (12-44); MEAN CORPUSCULAR HEMOGLOBIN 30 PG (25-34); MEAN CORPUSCULAR HGB CONC 32 G/DL (32-36); MEAN CORPUSCULAR VOLUME 95 FL (80-99); MEAN PLATELET VOLUME 10.1 FL (7.4-10.4); MONOCYTES # (AUTO) 0.6 X 10^3 (0.0-1.0); MONOCYTES % (AUTO) 3 % (0-12); NEUTROPHILS # (AUTO) 15.9 X 10^3 (1.8-7.8); NEUTROPHILS % (AUTO) 91 % (42-75); PLATELET COUNT 269 10^3/uL (130-400); RED CELL DISTRIBUTION WIDTH 16.3 % (10.0-14.5); WHITE BLOOD COUNT 17.4 10^3/uL (4.3-11.0)
[2018-07-27 19:04] LABS: INR 1.2 (0.8-1.4); PROTHROMBIN TIME PATIENT 15.3 SEC (12.2-14.7)
[2018-07-27 19:11] LABS: ALANINE AMINOTRANSFERASE 23 U/L (0-55); ALBUMIN 4.1 GM/DL (3.2-4.5); ALKALINE PHOSPHATASE 137 U/L (40-136); AMYLASE 15 U/L (25-125); BILIRUBIN,TOTAL 0.5 MG/DL (0.1-1.0); BUN/CREATININE RATIO 16; CALCIUM 9.1 MG/DL (8.5-10.1); CARBON DIOXIDE 30 MMOL/L (21-32); CHLORIDE 92 MMOL/L (98-107); CREATININE SERUM 1.22 MG/DL (0.60-1.30); GFR ESTIMATED 44; GLUCOSE 160 MG/DL (70-105); MAGNESIUM 1.9 MG/DL (1.8-2.4); POTASSIUM 4.3 MMOL/L (3.6-5.0); SODIUM 136 MMOL/L (135-145); TOTAL PROTEIN 7.4 GM/DL (6.4-8.2)
[2018-07-27 19:31] LABS: TSH (THYROID ANALYZER) 1.73 UIU/ML (0.35-4.94)
[2018-07-27 20:02] LABS: BILIRUBIN,URINE NEGATIVE (NEGATIVE); CLARITY,URINE CLEAR; COLOR,URINE YELLOW; GLUCOSE, URINE (UA) NEGATIVE (NEGATIVE); KETONES,URINE NEGATIVE (NEGATIVE); LEUKOCYTE ESTERASE ,URINE NEGATIVE (NEGATIVE); NITRITE,URINE NEGATIVE (NEGATIVE); PH,URINE 5 (5-9); PROTEIN,URINE NEGATIVE (NEGATIVE); UROBILINOGEN,URINE NORMAL (NORMAL)
[2018-07-27] MEDS ORDERED: NS IV 1000 ML 1,000 ML IV ONE (20:02)
--- NOTE | 2018-07-27 20:03 | Diagnostic Imaging Report ---
PROCEDURE: CT head without contrast. TECHNIQUE: Multiple contiguous axial images were obtained through the brain without the use of intravenous contrast. INDICATION: Altered mental status. Confusion. COMPARISON: Multiple priors, most recent performed on 06/04/2018. FINDINGS: BRAIN: No parenchymal hemorrhage, midline shift or mass effect. Melara-white matter differentiation is intact. No acute infarct. Mild periventricular and subcortical low-density white matter changes. Moderate prominence of the ventricles and Sulci consistent with cortical and cerebellar parenchymal volume loss. EXTRA-AXIAL SPACES: No subdural or epidural collections. ORBITS AND PARANASAL SINUSES: Visualized orbits and globes are intact. Visualized paranasal sinuses and mastoid air cells are clear. CALVARIUM AND SOFT TISSUES: The calvarium is intact. No fractures or suspicious bony lesions. The extracranial soft tissues are unremarkable. IMPRESSION: No acute intracranial pathology. No significant change from prior. Dictated by: Dictated on workstation # [id number]
[2018-07-27 20:04] VITALS: BP_SYST 123
--- NOTE | 2018-07-27 20:07 | Diagnostic Imaging Report ---
EXAMINATION: Portable erect AP chest at 7:31 PM INDICATION: Confusion The cardiomegaly noted on the the prior exam of 06/04/2018 is again evident and no different. The central pulmonary vascularity is still prominent. There may be an element of mild pulmonary congestion present. Also, there is a vague area of slightly increased density in the right upper lobe. This was present on the prior exam and has not changed significantly. The lungs are otherwise clear. There is no pleural effusion identified. The mediastinum is not widened. The osseous structures are intact. The loop recorder device overlying the left thorax is again seen. IMPRESSION: 1. When compared to the prior study, there has been no significant change. There is still cardiomegaly and mild pulmonary congestion and a small focus of increased density involving the right upper lung. 2. If further imaging is desired, then CT the chest would be recommended. Dictated by: Dictated on workstation # [id number]
[2018-07-27 20:17] LABS: BACTERIA,URINE FEW /HPF; RBC,URINE RARE /HPF; SQUAMOUS EPITHELIAL CELL,UR 0-2 /HPF
[2018-07-27 20:32] LABS: EOSINOPHILS % (MANUAL) 3 %; LYMPHOCYTES % (MANUAL) 3 %; MONOCYTES % (MANUAL) 2 %; NEUTROPHILS % (MANUAL) 92 %
[2018-07-27] MEDS ORDERED: FUROSEMIDE 40 MG/4 ML INJ (LASIX) IVP ONE (20:45)
[2018-07-27] MEDS ORDERED: RT-ALBUTEROL/IPRATROPIUM 3 ML (DUONEB) VIAL INH ONE (20:45)
[2018-07-27] MEDS ORDERED: cefTRIAXone FOR IV USE 1,000 MG in WATER (STERILE) FOR INJECTION 10 ML IV ONE (20:45)
[2018-07-27] MEDS ORDERED: methylPREDNISolone 125 MG (Solu-MEDROL) VIAL IVP ONE (20:45)
[2018-07-27] MEDS ORDERED: cefTRIAXone 1,000 MG IV (ROCEPHIN) VIAL ONE (21:07)
[2018-07-27] MEDS ORDERED: NS (IVPB) 100 ML ONE (21:08)
[2018-07-27 21:18] VITALS: BP 115/60
[2018-07-27] MEDS ORDERED: rOPINIRole 1 MG (REQUIP) TABLET PO ONE (21:30)
--- NOTE | 2018-07-27 21:50 | NUR ---
lactic acid sent
[2018-07-27 22:45] VITALS: BP 133/77
--- NOTE | 2018-07-27 23:00 | NUR ---
FAUSTINO LOCO admitted to room 414-1, with an admitting diagnosis of SEPSIS, AMS, PNA, COPD EXACERBATION, on 07/27/18 from ED via STRETCHER, accompanied by STAFF.FAUSTINO LOCO introduced to surroundings, call light, bed controls, phone, TV, temperature control, lights, meal times, smoking policy, visitor policy, side rail policy, bathrooms and showers. Patient Rights given to patient in the handbook. FAUSTINO LOCO verbalizes understanding that [facility] is not responsible for the loss or damage to any personal effects or valuables that are kept in the patients possession during their hospitalization. PLANS OF CARE DISCUSSED WITH PT AND VERBALIZES UNDERSTANDING. Patient and/or family were informed about the Rapid Response Team and its purpose.
[2018-07-27] MEDS ORDERED: ONDANSETRON 4 MG/2 ML (SDV) Z0FRAN IV PRN (23:30)
[2018-07-27] MEDS ORDERED: AZITHROMYCIN INJECTION 500 MG in NS (IVPB) 250 ML IV SCH (23:30)
[2018-07-27] MEDS ORDERED: ACETAMINOPHEN 500 MG TAB (TYLENOL) PO PRN (23:30)
[2018-07-27] MEDS ORDERED: 1/2 NS IV SOLUTION 1,000 ML IV SCH (23:30)
[2018-07-28] VITALS (8 sets, daily range): BP systolic 111–151; BP diastolic 57–69
[2018-07-28] MEDS ORDERED: AZITHROMYCIN 500 MG (ZITHROMAX) VIAL ONE (00:09)
[2018-07-28] MEDS ORDERED: NS (IVPB) 250 ML ONE (00:09)
[2018-07-28] MEDS ORDERED: methylPREDNISolone 125 MG (Solu-MEDROL) VIAL IVP SCH (03:00)
[2018-07-28] MEDS: IBUPROFEN 800 MG (MOTRIN) TAB PO PRN ×2 (04:13→11:39)
[2018-07-28] MEDS: inSUlin ASPART (NovoLOG) 1 UNIT/0.01 ML (CHARGE PER UNIT) SC SCH ×4 (05:21→21:40)
[2018-07-28 06:17] LABS: BASOPHILS % (AUTO) 0 % (0-10); EOSINOPHILS % (AUTO) 0 % (0-10); HEMATOCRIT 33 % (35-52); HEMOGLOBIN 10.4 G/DL (11.5-16.0); LYMPHOCYTES # (AUTO) 0.7 X 10^3 (1.0-4.0); LYMPHOCYTES % (AUTO) 5 % (12-44); MEAN CORPUSCULAR HEMOGLOBIN 30 PG (25-34); MEAN CORPUSCULAR HGB CONC 32 G/DL (32-36); MEAN CORPUSCULAR VOLUME 95 FL (80-99); MEAN PLATELET VOLUME 10.5 FL (7.4-10.4); MONOCYTES # (AUTO) 0.1 X 10^3 (0.0-1.0); MONOCYTES % (AUTO) 1 % (0-12); NEUTROPHILS % (AUTO) 95 % (42-75); PLATELET COUNT 244 10^3/uL (130-400); RED CELL DISTRIBUTION WIDTH 16.2 % (10.0-14.5); WHITE BLOOD COUNT 14.8 10^3/uL (4.3-11.0)
[2018-07-28 06:35] LABS: ALBUMIN 3.9 GM/DL (3.2-4.5); BILIRUBIN,TOTAL 0.5 MG/DL (0.1-1.0); CALCIUM 8.9 MG/DL (8.5-10.1); CREATININE SERUM 1.16 MG/DL (0.60-1.30); POTASSIUM 4.3 MMOL/L (3.6-5.0); TOTAL PROTEIN 7.2 GM/DL (6.4-8.2)
--- NOTE | 2018-07-28 07:02 | Pulmonary Consultation ---
History of Present Illness History of Present Illness Date of Consultation 07/28/18 06:57 Time Seen by Provider: 06:57 Date of Admission History of Present Illness 68yo with hx of RLD, asthma, and multiple hospitalizations presented to ED with lethargy, nausea, vomiting, diarrhea, and MS changes. Temp was 104.2 per EMS. Patients MS improved with in ED however still having hallucinations. Allergies and Home Medications Allergies Coded Allergies: Penicillins (Verified Allergy, Severe, SWELLING, HIVES, THROAT SWELLED, 01/21/16) PATIENT HAS RECEIVED CEFEPIME WITHOUT ISSUE Sulfa (Sulfonamide Antibiotics) (Verified Allergy, Severe, TONGUE SWELLED , 01/21/16) Tetanus & Diphtheria Tox,Adult (Verified Allergy, Severe, SWELLING OF THROAT, 01/21/16) codeine (Verified Allergy, Unknown, HAS RECEIVED LORTAB IN THE PAST, ) egg (Unverified Allergy, Unknown, 06/29/16) FROM UNCODED ALLERGIES Home Medications Albuterol Sulfate 8.5 Gm Hfa.aer.ad, 2 PUFF INH Q4H PRN for SHORTNESS OF BREATH, (Reported) Albuterol Sulfate 2.5 Mg/3 Ml Vial.neb, 2.5 MG IH Q4H PRN for SHORTNESS OF BREATH, (Reported) Alprazolam 0.5 Mg Tablet, 0.5 MG PO TID PRN for ANXIETY, (Reported) Apixaban 5 Mg Tablet, 5 MG PO BID, (Reported) Aspirin 81 Mg Tablet.dr, 81 MG PO HS, (Reported) Azithromycin 250 Mg Tablet, 250 MG PO DAILY Prescribed by: DAISY JOHNSON on 02/06/17919 Budesonide/Formoterol Fumarate 10.2 Gm Hfa.aer.ad, 2 PUFF IH BID, (Reported) Calcium Carbonate 1,177 Mg Tab.chew, 2 TAB PO TID PRN for INDIGESTION, (Reported ) Colestipol HCl 1 Gm Tablet, 1 GM PO BID, (Reported) Cyclobenzaprine HCl 10 Mg Tablet, 10 MG PO Q8H PRN for MUSCLE SPASMS, (Reported) Digoxin 125 Mcg Tablet, 0.125 MG PO HS Prescribed by: DAISY JOHNSON on 02/06/17919 Diltiazem HCl 240 Mg Cap.er.24h, 240 MG PO DAILY, (Reported) Diphenhydramine HCl 25 Mg Capsule, 50 MG PO QID PRN for ITCHING, (Reported) Duloxetine HCl 60 Mg Capsule.dr, 60 MG PO DAILY, (Reported) TAKES ALONG WITH 30MG CAPSULES FOR A TOTAL DAILY DOSE OF 90MG Duloxetine HCl 30 Mg Capsule.dr, 30 MG PO DAILY, (Reported) TAKES ALONG WITH 60MG CAPSULE FOR A TOTAL DAILY DOSE OF 90MG Ergocalciferol (Vitamin D2) 50,000 Unit Capsule, 50,000 UNIT PO Mo, (Reported) Fexofenadine HCl 180 Mg Tablet, 180 MG PO BID, (Reported) Flecainide Acetate 100 Mg Tablet, 100 MG PO BID, (Reported) Fluticasone Propionate 16 Gm [place].susp, 1 SPRAY NS HS, (Reported) Furosemide 40 Mg Tablet, 40 MG PO 1000,1500, (Reported) Gabapentin 600 Mg Tablet, 900 MG PO TID, (Reported) TAKES 1 & 1/2 (600MG) TABLETS Hydrocodone/Acetaminophen 1 Each Tablet, 1-2 TAB PO Q6H PRN for PAIN-MODERATE, ( Reported) ONLY TAKES WHEN OUT OF PERCOCET Insulin Detemir 100 Unit/1 Ml Insuln.pen, 50 UNITS SC BID, (Reported) Lactobacillus Acidophilus 1 Each Tablet, 1 EACH PO TID Prescribed by: DAISY JOHNSON on 02/06/17 0920 Levothyroxine Sodium 88 Mcg Tablet, 88 MCG PO DAILY, (Reported) LAST FILLED #30 08-19-16 Metoprolol Succinate 100 Mg Tab.er.24h, 100 MG PO BID, (Reported) Montelukast Sodium 10 Mg Tablet, 10 MG PO HS, (Reported) Naphazoline HCl/Pheniramine 15 Ml Drops, 1-2 DROP OU QID PRN for ALLERGIES, ( Reported) Nystatin 1 Each Powder.ea., TOP QID PRN for RASH, (Reported) Oxycodone HCl/Acetaminophen 1 Each Tablet, 1-2 TAB PO Q6H PRN for PAIN-MODERATE, (Reported) Pantoprazole Sodium 40 Mg Tablet.dr, 40 MG PO BID, (Reported) Promethazine HCl 25 Mg Tablet, 25 MG PO Q8H PRN for NAUSEA/VOMITING-2ND LINE, ( Reported) Ropinirole HCl 1 Mg Tablet, 0.5 MG PO HS, (Reported) TAKES 1/2 (1MG) TABLET Past Dxlrids-Irvyxz-Dlnqsu Hx Patient Social History Alcohol Use: Denies Use Recreational Drug Use: No Smoking Status: Never a Smoker 2nd Hand Smoke Exposure: Yes (DAD WAS HEAVY SMOKER) Recent Foreign Travel: No Contact w/Someone Who Travel: No Recent Infectious Disease Expo: No Recent Hopitalizations: No Physical Abuse: No Sexual Abuse: No Mistreated: No Fear: No Immunizations Up To Date Tetanus Booster (TDap): Unknown Date of Pneumonia Vaccine: Jan 31, 2012 Seasonal Allergies Seasonal Allergies: Yes Past Medical History Surgeries: Yes (KNEE SCOPES X3 - D&C'S; CARDIAC ABLATION FOR A. 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, 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 Sexually Transmitted Disease: No HIV/AIDS: No Genitourinary: Yes UTI-Chronic Gastrointestinal: Yes Colitis, Gastroesophageal Reflux, Diverticulosis, Irritable Bowel Musculoskeletal: Yes (CHRONIC BACK PAIN AND SCIATICA; CHRONIC NECK AND SHOULDER PAIN ) Arthritis, Fibromyalgia, Chronic Back Pain Endocrine: Yes (OBESITY) Diabetes, Insulin dep, Hypothyroidsim HEENT: Yes Tonsilitis Loss of Vision: Denies Hearing Impairment: Denies Cancer: No Psychosocial: Yes Anxiety, Depression Integumentary: No Blood Disorders: Yes (CHRONIC ANEMIA) Adverse Reaction/Blood Tranf: No Family Medical History Cardiovascular disease 19 FATHER 19 MOTHER Diabetes mellitus 19 MOTHER Irritable bowel syndrome G8 BROTHER Myocardial infarction 19 FATHER 19 MOTHER TIAs 19 MOTHER Heart Disease, Diabetes, GI Disease, Hypertension, Stroke Sepsis Event Evaluation Height, Weight, BMI Height: 5'5.00" Weight: 225lbs. 0.0oz. 102.864846mf; 37.4 BMI Method:Estimated Exam Exam Vital Signs Date Time Temp Pulse Resp B/P (MAP) Pulse Ox O2 Delivery O2 Flow Rate FiO2 07/28/18 05:55 98.2 73 20 140/69 (92) 99 Nasal Cannula 2.00 07/28/18 04:00 97.0 76 18 143/63 (89) 98 Nasal Cannula 2.00 07/28/18 02:06 Nasal Cannula 2.00 07/28/18 02:02 98.2 78 20 128/64 (85) 98 Nasal Cannula 2.00 07/28/18 01:00 77 07/28/18 00:00 97.9 78 18 129/57 (81) 97 Nasal Cannula 2.00 07/27/18 23:55 79 07/27/18 22:45 97.1 80 20 133/77 (95) 95 Nasal Cannula 2.50 07/27/18 22:36 100.2 81 16 137/59 (85) 97 Nasal Cannula 2.50 07/27/18 21:18 100.4 82 16 115/60 (78) 100 Nasal Cannula 2.50 07/27/18 20:04 102.3 85 18 123/ 99 Nasal Cannula 2.00 07/27/18 19:28 103.0 94 18 172/72 (105) Nasal Cannula I & O 07/28/18 07:00 Intake Total 300 ml Output Total 2050 ml Balance -1750 ml Height & Weight Height: 5'5.00" Weight: 225lbs. 0.0oz. 102.505782vw; 37.4 BMI Method:Estimated General Appearance: Anxious, Chronically ill, Mild Distress, Obese, Other HEENT: PERRL/EOMI, Pharynx Normal, Other Respiratory: Decreased Breath Sounds Cardiovascular: Regular Rate, Rhythm, No Edema, No JVD, No Murmur Capillary Refill: Less Than 3 Seconds Extremity: Normal Capillary Refill, Normal Range of Motion, Non Tender, No Calf Tenderness, No Pedal Edema Neurologic/Psychiatric: Alert, No Motor/Sensory Deficits, Other Skin: Normal Color, Warm/Dry Results Lab Laboratory Tests 07/27/18 18:42 07/28/18 05:30 Assessment/Plan Assessment/Plan Pneumonia with sepsis -Cont Abx -repeat LA -Change IVF to LR at 150cc/hr -Await rahman cultures -Influ is neg and UA is neg -Will need to be cautious with IVF secondary to resp status RLD with asthmaAE -SVNS -Oxygen -Check ABG Metabolic lactic acidosis -Monitor -IVF -Repeat LA Atlectasis -IS -SVNS -activity Metabolic encephalopathy secondary to sepsis -Monitor Anemia -Monitor ZIA WU DO Jul 28, 2018 07:02
--- NOTE | 2018-07-28 08:37 | Diagnostic Imaging Report ---
INDICATION: Pneumonia. TIME OF EXAM: 3:25 AM Correlation is made with prior study one day earlier. FINDINGS: The heart is enlarged, but stable. Congestive changes have increased since yesterday. No effusion or pneumothorax is identified. IMPRESSION: Increasing congestive changes when compared with study one day earlier. Dictated by: Dictated on workstation # [id number]
[2018-07-28] MEDS: LACTATED RINGERS 1,000 ML IV SCH ×2 (09:57→14:23)
[2018-07-28] MEDS: AZITHROMYCIN 250 MG TAB (ZITHROMAX) PO SCH (09:57)
[2018-07-28] MEDS: RT-ALBUTEROL/IPRATROPIUM 3 ML (DUONEB) VIAL INH SCH ×4 (10:12→21:56)
[2018-07-28 10:16] LABS: ABG BASE EXCESS 6.4 MMOL/L (-2.5-2.5); ABG OXYGEN SATURATION 98 % (94-100); ABG PCO2 42 MMHG (35-45); ABG PH 7.47 (7.37-7.43); ABG PO2 95 MMHG (79-93); ABG TCO2 31.7 MMOL/L (21.0-31.0); ALLENS TEST YES-POS; INSPIRED O2 2L; VENTILATOR NO
[2018-07-28] MEDS ORDERED: methylPREDNISolone 40 MG/ML (Solu-MEDROL) VIAL IV SCH (12:00)
--- NOTE | 2018-07-28 12:53 | History & Physical-Hospitalist ---
History of Present Illness HPI/Chief Complaint CC: Right upper lobe pneumonia with hypoxia and sepsis HPI: This is a 68-year-old white female with Dr. Motta who just moved into assisted living due to severe debility and complex medical issues needing supervision of medication management who presented to the ER with shortness of breath and hypoxia with fever was found to have right upper lobe pneumonia with sepsis and elevated lactic acid. Dr. Phelps and Dr. Cotto were both consulted due to the complexities of her medical issues. Currently she is talking very rapidly and mentions her recent 's a lot during the conversation and she reports that she is feeling much better and less confused. Blood sugars have been elevated due to steroid administration of Solu-Medrol IV of 40 MG every 6 hours. She has a history of ablation for atrial fibrillation but will await cardiology recommendations also. I have reconciled all of her home medication including her pain medication that she is requesting. Source: patient, RN/MD, old records Exam Limitations: no limitations Date Seen 07/28/18 Time Seen by a Provider: 11:15 Attending Physician Clarice Kim DO PCP Tessie Motta MD Referring Physician Date of Admission Jul 27, 2018 at 21:20 Home Medications & Allergies Home Medications Reviewed patient Home Medication Reconciliation performed by pharmacy medication reconciliations surgery technician and/or nursing. Patients Allergies have been reviewed. Allergies Allergies Coded Allergies Penicillins (Verified Allergy, Severe, SWELLING, HIVES, THROAT SWELLED, 01/21/16 ) PATIENT HAS RECEIVED CEFEPIME WITHOUT ISSUE Sulfa (Sulfonamide Antibiotics) (Verified Allergy, Severe, TONGUE SWELLED, 01/20) Tetanus & Diphtheria Tox,Adult (Verified Allergy, Severe, SWELLING OF THROAT, 01/21/16) codeine (Verified Allergy, Unknown, HAS RECEIVED LORTAB IN THE PAST, 01/21/16) egg (Unverified Allergy, Unknown, 06/29/16) FROM UNCODED ALLERGIES Past Btuvrev-Iajeal-Jnduou Hx Past Med/Social Hx: Reviewed Nursing Past Med/Soc Hx, Reviewed and Corrections made Patient Social History Marrital Status: Employed/Student: retired Alcohol Use: Denies Use Recreational Drug Use: No Smoking Status: Never a Smoker 2nd Hand Smoke Exposure: Yes (DAD WAS HEAVY SMOKER) Recent Foreign Travel: No Contact w/other who traveled: No Recent Hopitalizations: No Recent Infectious Disease Expo: No Immunizations Up To Date Tetanus Booster (TDap): Unknown Date of Pneumonia Vaccine: Jan 31, 2012 Seasonal Allergies Seasonal Allergies: Yes Past Medical History Surgeries: Appendectomy, Breast, Cardiac, Section, Gallbladder, 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, Oophorectomy, Orthopedic, Tonsillectomy Respiratory: Asthma, COPD Currently Using CPAP: Yes Currently Using BIPAP: No Cardiac: Atrial Fibrillation, Chronic Edema/Swelling, Coronary Artery Disease, High Cholesterol, Hypertension, Palpitations Neurological: Neuropathy Reproductive: No Sexually Transmitted Disease: No HIV/AIDS: No Female Reproductive Disorders: Ovarian Cyst 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, Menopausal Genitourinary: UTI-Chronic Gastrointestinal: Colitis, Gastroesophageal Reflux, Diverticulosis, Irritable Bowel Musculoskeletal: Arthritis, Fibromyalgia, Chronic Back Pain Endocrine: Diabetes, Insulin dep, Hypothyroidsim HEENT: Tonsilitis Loss of Vision: Denies Hearing Impairment: Denies Psychosocial: Anxiety, Depression History of Blood Disorders: Yes (CHRONIC ANEMIA) Adverse Reaction to Blood Brothers: No Family History Cardiovascular disease 19 FATHER 19 MOTHER Diabetes mellitus 19 MOTHER Irritable bowel syndrome G8 BROTHER Myocardial infarction 19 FATHER 19 MOTHER TIAs 19 MOTHER Heart Disease, Diabetes, GI Disease, Hypertension, Stroke Review of Systems Constitutional: see HPI, weakness EENTM: no symptoms reported Respiratory: cough, dyspnea on exertion, wheezing Cardiovascular: no symptoms reported Gastrointestinal: loss of appetite, nausea Genitourinary: no symptoms reported Musculoskeletal: back pain Skin: no symptoms reported Psychiatric/Neurological: No Symptoms Reported All Other Systems Reviewed Negative Unless Noted: Yes Physical Exam Physical Exam Vital Signs Vital Signs - First Documented 07/27/18 07/27/18 19:28 20:04 Temp 103.0 Pulse 94 Resp 18 B/P (MAP) 172/72 (105) Pulse Ox 99 O2 Delivery Nasal Cannula O2 Flow Rate 2.00 Capillary Refill : Less Than 3 Seconds Height, Weight, BMI Height: 5'5.00" Weight: 225lbs. 0.0oz. 102.459115ke; 37.4 BMI Method:Estimated General Appearance: No Apparent Distress, WD/WN, Anxious, Chronically ill Eyes: Right Eye Normal Inspection, Right Eye PERRL HEENT: PERRL/EOMI, Normal ENT Inspection, Pharynx Normal, Moist Mucous Membranes Neck: Full Range of Motion, Normal Inspection, Non Tender Respiratory: Chest Non Tender, No Accessory Muscle Use, No Respiratory Distress , Crackles, Decreased Breath Sounds, Wheezing Cardiovascular: Regular Rate, Rhythm, No Edema, No Gallop, No JVD, No Murmur, Normal Peripheral Pulses Gastrointestinal: Normal Bowel Sounds, No Organomegaly, No Pulsatile Mass, Non Tender, Soft Back: Normal Inspection, No CVA Tenderness, No Vertebral Tenderness Extremity: Normal Capillary Refill, Normal Inspection, Normal Range of Motion, Non Tender, No Calf Tenderness, No Pedal Edema Neurologic/Psychiatric: Alert, Oriented x3, No Motor/Sensory Deficits, Normal Mood/Affect Skin: Normal Color, Warm/Dry Lymphatic: No Adenopathy Results Results/Procedures Labs Laboratory Tests 07/27/18 18:42 07/28/18 05:30 Patient resulted labs reviewed. Assessment/Plan Admission Diagnosis Assessment: Pneumonia O2 dependent Chronic and severe debility requiring assisted living facility AF s/p ablation SANAZ Asthma Chronic edema HTN HLP Hypothyroidism DM Plan: Monitor closely Chronic illnesses preclude speedy recovery Admission Status: Inpatient Order (span 2 midnights) Reason for Inpatient Admission: Pneumonia with CAD and AF with chronic O2 will require 3 days Diagnosis/Problems Diagnosis/Problems (1) Sepsis Status: Acute Qualifiers: Sepsis type: sepsis due to unspecified organism Qualified Codes: A41.9 - Sepsis, unspecified organism (2) Pneumonia Status: Acute Qualifiers: Pneumonia type: due to unspecified organism Laterality: right Lung location: upper lobe of lung Qualified Codes: J18.1 - Lobar pneumonia, unspecified organism (3) COPD exacerbation Status: Acute (4) History of atrial fibrillation Status: Chronic (5) Nausea vomiting and diarrhea Status: Acute (6) Abdominal pain Status: Acute Qualifiers: Abdominal location: generalized Qualified Codes: R10.84 - Generalized abdominal pain (7) Hypoxia Status: Acute Clinical Quality Measures DVT/VTE Risk/Contraindication: Risk Factor Score Per Nursin RFS Level Per Nursing on Admit: 3=High CLARICE KIM DO Jul 28, 2018 12:53
[2018-07-28] MEDS ORDERED: PROMETHAZINE 25 MG (PHENERGAN) TAB PO PRN (13:00)
[2018-07-28] MEDS ORDERED: CYCLOBENZAPRINE 10 MG (FLEXERIL) TAB PO PRN (13:00)
[2018-07-28] MEDS: GABAPENTIN 600 MG (NEURONTIN) TAB PO SCH ×2 (13:12→20:54)
[2018-07-28] MEDS: FUROSEMIDE 40 MG (LASIX) TAB PO SCH (13:12)
--- NOTE | 2018-07-28 13:50 | Consultation-Cardiology ---
HPI-Cardiology Cardiology Consultation: Date of Consultation 07/28/18 Time Seen by a Provider: 13:30 Date of Admission Attending Physician Clarice Mcgregor DO Admitting Physician Daisy Motta MD Consulting Physician [place] FONSECA MD, MA, FACP, FACC, FSCAI, CCDS Physician requesting consult: Dr Mcgregor Primary instrument and control service person: Dr Dyer HPI: Chief Complaint: Reason for consultation: Cardiac co-management due to complex cardiac history HPI: [address] Mcgregor on 07/27/18 with pneumonia and altered mental status. She states she feels much less confused today. Has chronic exertional shortness of breath, worse lately and associated with a cough productive of small quantities of yellowish sputum. No cp or palp or nu syncope. Has had dizziness and somewhat poor balance, chronic. Has chronic, mild leg swelling. Does not report focal weakness or seizure Review of Systems-Cardiology Review of Systems Constitutional: malaise, tiredness; No weight loss Ears/Nose/Throat: No ear discharge, No nasal drainage, No recent hearing loss Respiratory: As described under HPI Cardiovascular: As described under HPI Gastrointestinal: No diarrhea, No nausea, No vomiting Genitourinary: No dysuria, No hematuria, No urine frequency changes Musculoskeletal: back pain (chronic) Skin: No rash, No ulcerations Psychiatric/Neurological: other (as noted under HPI) Hematologic: No bleeding abnormalities All Other Systems Reviewed Negative Unless Noted: Yes NJO-[id number]-[id number] Hx Patient Social History Marrital Status: Employed/Student: retired Alcohol Use: Denies Use Recreational Drug Use: No Smoking Status: Never a Smoker 2nd Hand Smoke Exposure: Yes (DAD WAS HEAVY SMOKER) Recent Foreign Travel: No Recent Infectious Disease Expo: No Hospitalization with Isolation: Denies Immunizations Up To Date Tetanus Booster (TDap): Unknown Date of Pneumonia Vaccine: Jan 31, 2012 Past Medical History PMH As described under Assessment. Family Medical History Family Medical History: She reports her father and mother both have a h/o CAD. Her mother had DM and TIA's. Family History: Cardiovascular disease 19 FATHER 19 MOTHER Diabetes mellitus 19 MOTHER Irritable bowel syndrome G8 BROTHER Myocardial infarction 19 FATHER 19 MOTHER TIAs 19 MOTHER Allergies and Home Medications Allergies Coded Allergies: Penicillins (Verified Allergy, Severe, SWELLING, HIVES, THROAT SWELLED, 01/21/16) PATIENT HAS RECEIVED CEFEPIME WITHOUT ISSUE Sulfa (Sulfonamide Antibiotics) (Verified Allergy, Severe, TONGUE SWELLED , 01/21/16) Tetanus & Diphtheria Tox,Adult (Verified Allergy, Severe, SWELLING OF THROAT, 01/21/16) codeine (Verified Allergy, Unknown, HAS RECEIVED LORTAB IN THE PAST, ) egg (Unverified Allergy, Unknown, 06/29/16) FROM UNCODED ALLERGIES Home Medications Albuterol Sulfate 8.5 Gm Hfa.aer.ad, 2 PUFF INH Q4H PRN for SHORTNESS OF BREATH, (Reported) Albuterol Sulfate 2.5 Mg/3 Ml Vial.neb, 2.5 MG IH Q4H PRN for SHORTNESS OF BREATH, (Reported) Alprazolam 0.5 Mg Tablet, 0.5 MG PO TID PRN for ANXIETY, (Reported) Apixaban 5 Mg Tablet, 5 MG PO BID, (Reported) Aspirin 81 Mg Tablet.dr, 81 MG PO HS, (Reported) Azithromycin 250 Mg Tablet, 250 MG PO DAILY Prescribed by: DAISY MOTTA on 02/06/17 0920 Budesonide/Formoterol Fumarate 10.2 Gm Hfa.aer.ad, 2 PUFF IH BID, (Reported) Calcium Carbonate 1,177 Mg Tab.chew, 2 TAB PO TID PRN for INDIGESTION, (Reported ) Colestipol HCl 1 Gm Tablet, 1 GM PO BID, (Reported) Cyclobenzaprine HCl 10 Mg Tablet, 10 MG PO Q8H PRN for MUSCLE SPASMS, (Reported) Digoxin 125 Mcg Tablet, 0.125 MG PO HS Prescribed by: DAISY MOTTA on 02/06/1720 Diltiazem HCl 240 Mg Cap.er.24h, 240 MG PO DAILY, (Reported) Diphenhydramine HCl 25 Mg Capsule, 50 MG PO QID PRN for ITCHING, (Reported) Duloxetine HCl 60 Mg Capsule.dr, 60 MG PO DAILY, (Reported) TAKES ALONG WITH 30MG CAPSULES FOR A TOTAL DAILY DOSE OF 90MG Duloxetine HCl 30 Mg Capsule.dr, 30 MG PO DAILY, (Reported) TAKES ALONG WITH 60MG CAPSULE FOR A TOTAL DAILY DOSE OF 90MG Ergocalciferol (Vitamin D2) 50,000 Unit Capsule, 50,000 UNIT PO Mo, (Reported) Fexofenadine HCl 180 Mg Tablet, 180 MG PO BID, (Reported) Flecainide Acetate 100 Mg Tablet, 100 MG PO BID, (Reported) Fluticasone Propionate 16 Gm [place].susp, 1 SPRAY NS HS, (Reported) Furosemide 40 Mg Tablet, 40 MG PO 1000,1500, (Reported) Gabapentin 600 Mg Tablet, 900 MG PO TID, (Reported) TAKES 1 & 1/2 (600MG) TABLETS Hydrocodone/Acetaminophen 1 Each Tablet, 1-2 TAB PO Q6H PRN for PAIN-MODERATE, ( Reported) ONLY TAKES WHEN OUT OF PERCOCET Insulin Detemir 100 Unit/1 Ml Insuln.pen, 50 UNITS SC BID, (Reported) Lactobacillus Acidophilus 1 Each Tablet, 1 EACH PO TID Prescribed by: DAISY MOTTA on 02/06/17 0920 Levothyroxine Sodium 88 Mcg Tablet, 88 MCG PO DAILY, (Reported) LAST FILLED #30 08-19-16 Metoprolol Succinate 100 Mg Tab.er.24h, 100 MG PO BID, (Reported) Montelukast Sodium 10 Mg Tablet, 10 MG PO HS, (Reported) Naphazoline HCl/Pheniramine 15 Ml Drops, 1-2 DROP OU QID PRN for ALLERGIES, ( Reported) Nystatin 1 Each Powder.ea., TOP QID PRN for RASH, (Reported) Oxycodone HCl/Acetaminophen 1 Each Tablet, 1-2 TAB PO Q6H PRN for PAIN-MODERATE, (Reported) Pantoprazole Sodium 40 Mg Tablet.dr, 40 MG PO BID, (Reported) Promethazine HCl 25 Mg Tablet, 25 MG PO Q8H PRN for NAUSEA/VOMITING-2ND LINE, ( Reported) Ropinirole HCl 1 Mg Tablet, 0.5 MG PO HS, (Reported) TAKES 1/2 (1MG) TABLET Patient Home Medication List Home Medication List Reviewed: Yes Physical Exam-Cardiology Physical Exam Vital Signs/I&O 07/28/18 07/28/18 07/28/18 07/28/18 02:02 02:06 04:00 05:55 Temp 98.2 97.0 98.2 Pulse 78 76 73 Resp 20 18 20 B/P (MAP) 128/64 (85) 143/63 (89) 140/69 (92) Pulse Ox 98 98 99 O2 Delivery Nasal Cannula Nasal Cannula Nasal Cannula Nasal Cannula O2 Flow Rate 2.00 2.00 2.00 2.00 07/28/18 07/28/18 07/28/18 07/28/18 07:09 07:23 09:52 10:14 Temp 96.5 Pulse 77 78 Resp 20 B/P (MAP) 151/65 (93) Pulse Ox 100 94 O2 Delivery Nasal Cannula Nasal Cannula Nasal Cannula O2 Flow Rate 2.00 2.00 2.00 07/28/18 07/28/18 11:20 13:08 Temp 97.2 Pulse 85 91 Resp 20 B/P (MAP) 139/64 (89) Pulse Ox 99 O2 Delivery Nasal Cannula O2 Flow Rate 2.00 07/28/18 00:00 Intake Total 200 ml Balance 200 ml Capillary Refill : Less Than 3 Seconds Constitutional: AAO x 3, well-developed, well-nourished HEENT: PERRL, other (mild strabismus noted), EOMI Respiratory: No accessory muscle use; other (good bilat air entry, diminished at the bases, scattered rhonchi and wheezes) Cardiovascular: regular rate-rhythm, S1 and S2, systolic murmur (faint NGUYEN at card base) Gastrointestinal: No tender; soft; No guarding, No rebound; audible bowel sounds Extremities: No clubbing, No cyanosis, No significant edema Neurologic/Psychiatric: oriented x 3, other (seems to be able to move all limbs equally) Skin: No rash on exposed areas, No ulcerations on exposed areas Data Review Labs Laboratory Tests 07/27/18 18:42: White Blood Count 17.4H, Red Blood Count 3.52L, Hemoglobin 10.7L, Hematocrit 33L , Mean Corpuscular Volume 95, Mean Corpuscular Hemoglobin 30, Mean Corpuscular Hemoglobin Concent 32, Red Cell Distribution Width 16.3H, Platelet Count 269, Mean Platelet Volume 10.1, Neutrophils (%) (Auto) 91H, Lymphocytes (%) (Auto) 5L , Monocytes (%) (Auto) 3, Eosinophils (%) (Auto) 0, Basophils (%) (Auto) 0, Neutrophils # (Auto) 15.9H, Lymphocytes # (Auto) 0.9L, Monocytes # (Auto) 0.6, Eosinophils # (Auto) 0.1, Basophils # (Auto) 0.0, Neutrophils % (Manual) 92, Lymphocytes % (Manual) 3, Monocytes % (Manual) 2, Eosinophils % (Manual) 3, Prothrombin Time 15.3H, INR Comment 1.2, Activated Partial Thromboplast Time 39H , Sodium Level 136, Potassium Level 4.3, Chloride Level 92L, Carbon Dioxide Level 30, Anion Gap 14, Blood Urea Nitrogen 19H, Creatinine 1.22, Estimat Glomerular Filtration Rate 44, BUN/Creatinine Ratio 16, Glucose Level 160H, Lactic Acid Level 2.85*H, Calcium Level 9.1, Corrected Calcium 9.0, Magnesium Level 1.9, Total Bilirubin 0.5, Aspartate Amino Transf (AST/SGOT) 27, Alanine Aminotransferase (ALT/SGPT) 23, Alkaline Phosphatase 137H, Troponin I < 0.028, B -Type Natriuretic Peptide 94.5, Total Protein 7.4, Albumin 4.1, Amylase Level 15L, TSH Osborne Testing 1.73, Digoxin Level 0.73L 07/27/18 19:20: Urine Color YELLOW, Urine Clarity CLEAR, Urine pH 5, Urine Specific North 1.010L, Urine Protein NEGATIVE, Urine Glucose (UA) NEGATIVE, Urine Ketones NEGATIVE, Urine Nitrite NEGATIVE, Urine Bilirubin NEGATIVE, Urine Urobilinogen NORMAL, Urine Leukocyte Esterase NEGATIVE, Urine RBC (Auto) NEGATIVE, Urine RBC RARE, Urine WBC NONE, Urine Squamous Epithelial Cells 0-2, Urine Crystals NONE, Urine Bacteria FEWH, Urine Casts NONE, Urine Mucus NEGATIVE, Urine Culture Indicated NO 07/27/18 21:48: Lactic Acid Level 2.24*H 07/28/18 01:04: Glucometer 303H 07/28/18 05:17: Glucometer 362H 07/28/18 05:30: White Blood Count 14.8H, Red Blood Count 3.42L, Hemoglobin 10.4L, Hematocrit 33L , Mean Corpuscular Volume 95, Mean Corpuscular Hemoglobin 30, Mean Corpuscular Hemoglobin Concent 32, Red Cell Distribution Width 16.2H, Platelet Count 244, Mean Platelet Volume 10.5H, Neutrophils (%) (Auto) 95H, Lymphocytes (%) (Auto) 5L, Monocytes (%) (Auto) 1, Eosinophils (%) (Auto) 0, Basophils (%) (Auto) 0, Neutrophils # (Auto) 14.0H, Lymphocytes # (Auto) 0.7L, Monocytes # (Auto) 0.1, Eosinophils # (Auto) 0.0, Basophils # (Auto) 0.0, Sodium Level 140, Potassium Level 4.3, Chloride Level 98, Carbon Dioxide Level 28, Anion Gap 14, Blood Urea Nitrogen 18, Creatinine 1.16, Estimat Glomerular Filtration Rate 46, BUN/ Creatinine Ratio 16, Glucose Level 366H, Calcium Level 8.9, Corrected Calcium 9.0, Total Bilirubin 0.5, Aspartate Amino Transf (AST/SGOT) 22, Alanine Aminotransferase (ALT/SGPT) 23, Alkaline Phosphatase 130, Total Protein 7.2, Albumin 3.9 07/28/18 07:10: Lactic Acid Level 1.28 07/28/18 10:09: Blood Gas Puncture Site RT RAD, Blood Gas Patient Temperature 97.0, Arterial Blood pH 7.47H, Arterial Blood Partial Pressure CO2 42, Arterial Blood Partial Pressure O2 95H, Arterial Blood HCO3 30H, Arterial Blood Total CO2 31.7H, Arterial Blood Oxygen Saturation 98, Arterial Blood Base Excess 6.4H, Gómez Test YES-POS, Blood Gas Ventilator Setting NO, Blood Gas Inspired Oxygen 2L 07/28/18 11:31: Glucometer 452*H Microbiology 07/27/18 Influenza Types A,B Antigen (ROBIN) - Final, Complete Laboratory Tests 07/27/18 18:42 07/28/18 05:30 Laboratory Tests 07/27/18 18:42 07/28/18 05:30 A/P-Cardiology Assessment/Admission Diagnosis Pneumonia and altered mental status being managed by Dr Mcgregor H/o SSS, including paroxysmal atrial fibrillation - followed by Dr. Lr and Dr Dyer. 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 Phelps. Mild bilateral carotid stenosis, nonobstructive disease by ultrasound done in March 2016, followed by Dr Dyer Peripheral edema, chronic, waxing and waning. Venous insufficiency scan done March 2016 was negative for reflux. Hypertension Hyperlipidemia, by history Hypothyroidism, followed and managed by primary care physician Maturity-onset diabetes mellitus, followed and managed by primary care physician. Gastric esophageal reflux disease Discussion and Recomendations * I reviewed her cardiac records, interviewed and examined her and answered her CV-related questions * Continue flecainide and diltiazem for rhythm maintenance * Continue apixaban for stroke prophylaxis * Monitor and correct labs Clinical Quality Measures DVT/VTE Risk/Contraindication: Risk Factor Score Per Nursin RFS Level Per Nursing on Admit: 3=High [place] FONSECA MD FACP [facility] Jul 28, 2018 13:50
[2018-07-28] MEDS: oxyCODONE/APAP 10/325MG (PERCOCET 10) TABLET PO PRN ×2 (14:27→20:58)
[2018-07-28] MEDS: LACTOBACILLUS ACIDOPHILUS (PROBIOTIC) CAPSULE PO SCH (16:16)
[2018-07-28] MEDS: methylPREDNISolone 40 MG/ML (Solu-MEDROL) VIAL IV SCH (20:51)
[2018-07-28] MEDS: cefTRIAXone FOR IV USE 1,000 MG in WATER (STERILE) FOR INJECTION 10 ML IV SCH (20:51)
[2018-07-28] MEDS: APIXABAN 5 MG (ELIQUIS) TABLET PO SCH (20:54)
[2018-07-28] MEDS: meTOprolol SUCCINATE 100 MG (TOPROL XL) TAB PO SCH (20:54)
[2018-07-28] MEDS: PANTOPRAZOLE 40 MG (PROTONIX) TAB PO SCH (20:54)
[2018-07-28] MEDS: FLECAINIDE 100 MG (TAMBOCOR) TAB PO SCH (20:54)
[2018-07-28] MEDS: rOPINIRole 0.25 MG (REQUIP) TAB PO SCH (20:55)
[2018-07-28] MEDS: DIGOXIN 0.125 MG (LANOXIN) TAB PO SCH (20:55)
[2018-07-28] MEDS: COLESTIPOL 1 GM (COLESTID) TAB PO SCH (20:59)
[2018-07-29] VITALS: BP 112/62
[2018-07-29] MEDS: RT-ALBUTEROL/IPRATROPIUM 3 ML (DUONEB) VIAL INH SCH ×6 (01:57→21:13)
[2018-07-29] MEDS: oxyCODONE/APAP 10/325MG (PERCOCET 10) TABLET PO PRN ×3 (03:07→22:11)
[2018-07-29] MEDS: ALPRAZolam 0.5 MG (XANAX) TAB PO PRN ×3 (03:07→22:12)
[2018-07-29 04:00] VITALS: BP 117/65
[2018-07-29] MEDS: LACTOBACILLUS ACIDOPHILUS (PROBIOTIC) CAPSULE PO SCH ×3 (06:16→16:17)
[2018-07-29] MEDS: inSUlin ASPART (NovoLOG) 1 UNIT/0.01 ML (CHARGE PER UNIT) SC SCH ×5 (06:16→21:00)
[2018-07-29] MEDS: LACTATED RINGERS 1,000 ML IV SCH (06:16)
--- NOTE | 2018-07-29 06:19 | Pulmonary Progress Note ---
Sepsis Event Evaluation Height, Weight, BMI Height: 5'5.00" Weight: 225lbs. 0.0oz. 102.622690qv; 37.4 BMI Method:Estimated Focused Exam Lactate Level 07/27/18 18:42: Lactic Acid Level 2.85*H 07/27/18 21:48: Lactic Acid Level 2.24*H 07/28/18 07:10: Lactic Acid Level 1.28 Exam Exam Vital Signs Date Time Temp Pulse Resp B/P (MAP) Pulse Ox O2 Delivery O2 Flow Rate FiO2 07/29/18 04:00 96.1 81 20 117/65 (82) 100 Nasal Cannula 2.00 07/29/18 01:58 97 Nasal Cannula 2.00 07/29/18 01:00 94 07/29/18 00:00 96.1 94 18 112/62 (79) 99 Nasal Cannula 2.00 07/28/18 21:56 97 Nasal Cannula 2.00 07/28/18 20:00 Nasal Cannula 2.00 07/28/18 20:00 98.6 84 20 111/61 (78) 98 Nasal Cannula 2.00 07/28/18 19:38 98 Nasal Cannula 2.00 07/28/18 19:00 97 07/28/18 15:44 98.2 97 20 125/58 (80) 98 Nasal Cannula 2.00 07/28/18 13:08 91 07/28/18 11:20 97.2 85 20 139/64 (89) 99 Nasal Cannula 2.00 07/28/18 10:14 94 Nasal Cannula 2.00 07/28/18 09:52 Nasal Cannula 2.00 07/28/18 08:00 99 Nasal Cannula 2.00 07/28/18 07:23 96.5 78 20 151/65 (93) 100 Nasal Cannula 2.00 07/28/18 07:09 77 I & O 07/29/18 07:00 Intake Total 4810 ml Output Total 702 ml Balance 4108 ml Height & Weight Height: 5'5.00" Weight: 225lbs. 0.0oz. 102.691509dl; 37.4 BMI Method:Estimated General Appearance: No Apparent Distress, WD/WN, Anxious, Chronically ill HEENT: PERRL/EOMI, Normal ENT Inspection, Pharynx Normal, Moist Mucous Membranes Neck: Full Range of Motion, Normal Inspection, Non Tender Respiratory: Chest Non Tender, No Accessory Muscle Use, No Respiratory Distress , Crackles, Decreased Breath Sounds, Wheezing Cardiovascular: Regular Rate, Rhythm, No Edema, No Gallop, No JVD, No Murmur, Normal Peripheral Pulses Capillary Refill: Less Than 3 Seconds Extremity: Normal Capillary Refill, Normal Inspection, Normal Range of Motion, Non Tender, No Calf Tenderness, No Pedal Edema Neurologic/Psychiatric: Alert, Oriented x3, No Motor/Sensory Deficits, Normal Mood/Affect Skin: Normal Color, Warm/Dry Lymphatic: No Adenopathy Results Lab Laboratory Tests 07/27/18 18:42 07/28/18 05:30 Assessment/Plan Assessment/Plan Pneumonia with sepsis -Cont Abx -repeat LA -Change IVF to LR at 150cc/hr -Await rahman cultures -Influ is neg and UA is neg -Will need to be cautious with IVF secondary to resp status RLD with asthmaAE -SVNS -Oxygen Metabolic lactic acidosis -Monitor -IVF -Labs pending Atlectasis -IS -SVNS -activity Metabolic encephalopathy secondary to sepsis -Monitor Anemia -Monitor ZIA WU DO Jul 29, 2018 06:19
[2018-07-29 06:25] LABS: BASOPHILS % (AUTO) 0 % (0-10); EOSINOPHILS % (AUTO) 0 % (0-10); HEMATOCRIT 30 % (35-52); HEMOGLOBIN 9.3 G/DL (11.5-16.0); LYMPHOCYTES % (AUTO) 6 % (12-44); MEAN CORPUSCULAR HEMOGLOBIN 30 PG (25-34); MEAN CORPUSCULAR HGB CONC 31 G/DL (32-36); MEAN CORPUSCULAR VOLUME 96 FL (80-99); MEAN PLATELET VOLUME 10.7 FL (7.4-10.4); MONOCYTES # (AUTO) 0.4 X 10^3 (0.0-1.0); MONOCYTES % (AUTO) 3 % (0-12); NEUTROPHILS # (AUTO) 13.7 X 10^3 (1.8-7.8); NEUTROPHILS % (AUTO) 91 % (42-75); PLATELET COUNT 236 10^3/uL (130-400); RED CELL DISTRIBUTION WIDTH 15.7 % (10.0-14.5)
[2018-07-29 06:47] LABS: ALBUMIN 3.8 GM/DL (3.2-4.5); BILIRUBIN,TOTAL 0.2 MG/DL (0.1-1.0); CREATININE SERUM 1.54 MG/DL (0.60-1.30); POTASSIUM 4.6 MMOL/L (3.6-5.0); TOTAL PROTEIN 6.9 GM/DL (6.4-8.2)
[2018-07-29 07:23] VITALS: BP 124/60
[2018-07-29] MEDS: DULoxetine 30 MG (CYMBALTA) CAP PO SCH (07:47)
[2018-07-29] MEDS: methylPREDNISolone 40 MG/ML (Solu-MEDROL) VIAL IV SCH ×2 (07:47→22:01)
[2018-07-29] MEDS: meTOprolol SUCCINATE 100 MG (TOPROL XL) TAB PO SCH ×2 (07:48→22:01)
[2018-07-29] MEDS: PANTOPRAZOLE 40 MG (PROTONIX) TAB PO SCH ×2 (07:48→22:00)
[2018-07-29] MEDS: DILTIAZEM 240 MG (CARDIZEM CD) CAP PO SCH (07:48)
[2018-07-29] MEDS: FLECAINIDE 100 MG (TAMBOCOR) TAB PO SCH ×2 (07:48→22:00)
[2018-07-29] MEDS: FUROSEMIDE 40 MG (LASIX) TAB PO SCH ×2 (07:49→13:34)
[2018-07-29] MEDS: APIXABAN 5 MG (ELIQUIS) TABLET PO SCH ×2 (07:49→22:00)
[2018-07-29] MEDS: AZITHROMYCIN 250 MG TAB (ZITHROMAX) PO SCH (07:49)
[2018-07-29] MEDS: GABAPENTIN 600 MG (NEURONTIN) TAB PO SCH ×3 (07:49→22:00)
[2018-07-29] MEDS: COLESTIPOL 1 GM (COLESTID) TAB PO SCH ×2 (07:50→22:00)
[2018-07-29] MEDS ORDERED: NON-FORMULARY MEDICATION 1 EA EA (Duloxetine HCl 60 MG) PO SCH (09:00)
[2018-07-29 11:10] VITALS: BP 122/56
--- NOTE | 2018-07-29 12:40 | Progress Note-Hospitalist ---
Subjective HPI/CC On Admission Date Seen by Provider: Jul 29, 2018 Time Seen by Provider: 11:45 CC: Right upper lobe pneumonia with hypoxia and sepsis HPI: This is a 68-year-old white female with Dr. Motta who just moved into assisted living due to severe debility and complex medical issues needing supervision of medication management who presented to the ER with shortness of breath and hypoxia with fever was found to have right upper lobe pneumonia with sepsis and elevated lactic acid. Dr. Phelps and Dr. Cotto were both consulted due to the complexities of her medical issues. Currently she is talking very rapidly and mentions her recent 's a lot during the conversation and she reports that she is feeling much better and less confused. Blood sugars have been elevated due to steroid administration of Solu-Medrol IV of 40 MG every 6 hours. She has a history of ablation for atrial fibrillation but will await cardiology recommendations also. I have reconciled all of her home medication including her pain medication that she is requesting. Subjective/Events-last exam Patient feels much better She feels confused at times Blood sugar improved Help locking IV fluid Walking around well Claritin will be started at her request Had a loose stool Nausea comes and goes Nebulizers are tolerated Review of Systems General: Fatigue Pulmonary: Dyspnea, Cough Focused Exam Lactate Level 07/27/18 18:42: Lactic Acid Level 2.85*H 07/27/18 21:48: Lactic Acid Level 2.24*H 07/28/18 07:10: Lactic Acid Level 1.28 Objective Exam Vital Signs Vital Signs Date Time Temp Pulse Resp B/P (MAP) Pulse Ox O2 Delivery O2 Flow Rate FiO2 07/29/18 11:10 97.7 92 20 122/56 (78) 98 Nasal Cannula 2.00 Capillary Refill : Less Than 3 Seconds General Appearance: No Apparent Distress, WD/WN, Anxious, Chronically ill HEENT: PERRL/EOMI, Normal ENT Inspection, Pharynx Normal, Moist Mucous Membranes Neck: Full Range of Motion, Normal Inspection, Non Tender Respiratory: Chest Non Tender, No Accessory Muscle Use, No Respiratory Distress , Crackles, Decreased Breath Sounds, Wheezing Cardiovascular: Regular Rate, Rhythm, No Edema, No Gallop, No JVD, No Murmur, Normal Peripheral Pulses Gastrointestinal: Normal Bowel Sounds, No Organomegaly, No Pulsatile Mass, Non Tender, Soft Back: Normal Inspection, No CVA Tenderness, No Vertebral Tenderness Extremity: Normal Capillary Refill, Normal Inspection, Normal Range of Motion, Non Tender, No Calf Tenderness, No Pedal Edema Neurologic/Psychiatric: Alert, Oriented x3, No Motor/Sensory Deficits, Normal Mood/Affect Skin: Normal Color, Warm/Dry Lymphatic: No Adenopathy Results/Procedures Lab Laboratory Tests 07/29/18 05:45 Patient resulted labs reviewed. Assessment/Plan Assessment and Plan Assess & Plan/Chief Complaint Assessment: Pneumonia O2 dependent Chronic and severe debility requiring assisted living facility AF s/p ablation SANAZ Asthma Chronic edema HTN HLP Hypothyroidism DM Allergies Plan: Monitor closely Chronic illnesses preclude speedy recovery Start Claritin HLIVF Monitor loose stools Diagnosis/Problems Diagnosis/Problems (1) Sepsis Status: Resolved Qualifiers: Sepsis type: sepsis due to unspecified organism Qualified Codes: A41.9 - Sepsis, unspecified organism Resolution Date/Time: 07/29/18 @ 13:07 (2) Pneumonia Status: Acute Qualifiers: Pneumonia type: due to unspecified organism Laterality: right Lung location: upper lobe of lung Qualified Codes: J18.1 - Lobar pneumonia, unspecified organism (3) COPD exacerbation Status: Acute (4) History of atrial fibrillation Status: Chronic (5) Nausea vomiting and diarrhea Status: Acute (6) Abdominal pain Status: Resolved Qualifiers: Abdominal location: generalized Qualified Codes: R10.84 - Generalized abdominal pain Resolution Date/Time: 07/29/18 @ 13:07 (7) Hypoxia Status: Acute Clinical Quality Measures DVT/VTE Risk/Contraindication: Risk Factor Score Per Nursin RFS Level Per Nursing on Admit: 3=High ANDRÉS KIM DO Jul 29, 2018 12:40
[2018-07-29] MEDS ORDERED: LORATADINE (CLARITIN) 10 MG TAB PO NR (13:15)
--- NOTE | 2018-07-29 15:54 | Progress Note-Cardiology ---
Cardiology SOAP Progress Note Subjective: Notes gen weakness and dizziness Chronic L parasternal chest discomfort that is worse in certain positions, is sharp to dull, is mild to mod, is not associated with other symptoms and lasts several hours, occurring daily, unchanged in the recent past Objective: I&O/Vital Signs 07/29/18 07/29/18 07/29/18 07/29/18 04:00 07:00 07:12 07:23 Temp 96.1 96.5 Pulse 81 84 84 Resp 20 20 B/P (MAP) 117/65 (82) 124/60 (81) Pulse Ox 100 97 99 O2 Delivery Nasal Cannula Nasal Cannula Nasal Cannula O2 Flow Rate 2.00 2.00 2.00 07/29/18 07/29/18 07/29/18 07/29/18 08:00 10:48 11:10 13:00 Temp 97.7 Pulse 92 82 Resp 20 B/P (MAP) 122/56 (78) Pulse Ox 99 98 98 O2 Delivery Nasal Cannula Nasal Cannula Nasal Cannula O2 Flow Rate 2.00 2.00 2.00 07/29/18 14:51 Pulse Ox 99 O2 Delivery Nasal Cannula O2 Flow Rate 2.00 07/29/18 00:00 Intake Total 3660 ml Output Total 702 ml Balance 2958 ml Weight (Pounds): 225 Weight (Ounces): 0.0 Weight (Calculated Kilograms): 102.466689 Constitutional: AAO x 3, well-developed, well-nourished Respiratory: No accessory muscle use; other (good bilat air entry, diminished at the bases, scattered rhonchi and wheezes) Cardiovascular: regular rate-rhythm, S1 and S2, systolic murmur (faint NGUYEN at card base) Gastrointestional: No tender; soft; No guarding, No rebound; audible bowel sounds Extremities: No clubbing, No cyanosis, No significant edema Neurologic/Psychiatric: oriented x 3, other (seems to be able to move all limbs equally) Skin: No rash on exposed areas, No ulcerations on exposed areas Results/Procedures: Labs Laboratory Tests 07/28/18 15:59: Glucometer 534*H 07/28/18 18:45: Glucometer 529*H 07/28/18 21:20: Glucometer 509*H 07/29/18 05:00: Glucometer 487*H 07/29/18 05:45: White Blood Count 15.0H, Red Blood Count 3.14L, Hemoglobin 9.3L, Hematocrit 30L , Mean Corpuscular Volume 96, Mean Corpuscular Hemoglobin 30, Mean Corpuscular Hemoglobin Concent 31L, Red Cell Distribution Width 15.7H, Platelet Count 236, Mean Platelet Volume 10.7H, Neutrophils (%) (Auto) 91H, Lymphocytes (%) (Auto) 6L, Monocytes (%) (Auto) 3, Eosinophils (%) (Auto) 0, Basophils (%) (Auto) 0, Neutrophils # (Auto) 13.7H, Lymphocytes # (Auto) 1.0, Monocytes # (Auto) 0.4, Eosinophils # (Auto) 0.0, Basophils # (Auto) 0.0, Sodium Level 135, Potassium Level 4.6, Chloride Level 95L, Carbon Dioxide Level 26, Anion Gap 14, Blood Urea Nitrogen 31H, Creatinine 1.54H, Estimat Glomerular Filtration Rate 34, BUN/ Creatinine Ratio 20, Glucose Level 529*H, Calcium Level 9.0, Corrected Calcium 9.2, Total Bilirubin 0.2, Aspartate Amino Transf (AST/SGOT) 16, Alanine Aminotransferase (ALT/SGPT) 18, Alkaline Phosphatase 118, Total Protein 6.9, Albumin 3.8 07/29/18 11:13: Glucometer 419*H 07/29/18 13:28: Glucometer 430*H Microbiology 07/27/18 Blood Culture - Preliminary, Resulted No growth 07/27/18 Influenza Types A,B Antigen (ROBIN) - Final, Complete Laboratory Tests 07/27/18 18:42 07/28/18 05:30 07/29/18 05:45 A/P: Assessment: Acute Kidney Injury Stage 1 (Cr on 07/28/18 1.16; Cr on 07/29/18 1.54) Pneumonia and altered mental status being managed by Dr Mcgregor H/o [facility], including paroxysmal atrial fibrillation - followed by Dr. Lr and Dr Dyer. 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 Phelps. Mild bilateral carotid stenosis, nonobstructive disease by ultrasound done in March 2016, followed by Dr Dyer Peripheral edema, chronic, waxing and waning. Venous insufficiency scan done March 2016 was negative for reflux. Hypertension Hyperlipidemia, by history Hypothyroidism, followed and managed by primary care physician Maturity-onset diabetes mellitus, followed and managed by primary care physician. Gastric esophageal reflux disease Plan: * D/c NSAIDs and reduce diuretics (to treat TRISTEN stage 1) * Continue previous cardiac recs * Monitor and correct labs [place] FONSECA MD FACP [facility] Jul 29, 2018 15:54
[2018-07-29 16:10] VITALS: BP 108/67
[2018-07-29 19:18] VITALS: BP 144/87
[2018-07-29] MEDS ORDERED: NON-FORMULARY MEDICATION 1 EA EA (Insulin Detemir (Levemir Flextouch) 50 UNITS) SC SCH (21:00)
[2018-07-29] MEDS: rOPINIRole 0.25 MG (REQUIP) TAB PO SCH (22:00)
[2018-07-29] MEDS: DIGOXIN 0.125 MG (LANOXIN) TAB PO SCH (22:01)
[2018-07-29] MEDS: inSUlin DETERMIR 1 UNIT/0.01 ML (LEVEMIR) CHARGE PER UNIT SQ SCH (22:01)
[2018-07-29] MEDS: cefTRIAXone FOR IV USE 1,000 MG in WATER (STERILE) FOR INJECTION 10 ML IV SCH (22:01)
[2018-07-30 00:26] VITALS: BP 146/72
[2018-07-30] MEDS: RT-ALBUTEROL/IPRATROPIUM 3 ML (DUONEB) VIAL INH SCH ×6 (01:16→22:32)
[2018-07-30 04:53] VITALS: BP 143/78
[2018-07-30 05:55] LABS: BASOPHILS % (AUTO) 0 % (0-10); EOSINOPHILS % (AUTO) 0 % (0-10); HEMATOCRIT 30 % (35-52); HEMOGLOBIN 9.3 G/DL (11.5-16.0); LYMPHOCYTES # (AUTO) 1.1 X 10^3 (1.0-4.0); LYMPHOCYTES % (AUTO) 8 % (12-44); MEAN CORPUSCULAR HEMOGLOBIN 30 PG (25-34); MEAN CORPUSCULAR HGB CONC 31 G/DL (32-36); MEAN CORPUSCULAR VOLUME 97 FL (80-99); MEAN PLATELET VOLUME 10.5 FL (7.4-10.4); MONOCYTES # (AUTO) 0.4 X 10^3 (0.0-1.0); MONOCYTES % (AUTO) 3 % (0-12); NEUTROPHILS # (AUTO) 12.9 X 10^3 (1.8-7.8); NEUTROPHILS % (AUTO) 90 % (42-75); PLATELET COUNT 263 10^3/uL (130-400); RED CELL DISTRIBUTION WIDTH 16.2 % (10.0-14.5); WHITE BLOOD COUNT 14.4 10^3/uL (4.3-11.0)
[2018-07-30 06:24] LABS: CALCIUM 9.3 MG/DL (8.5-10.1); CREATININE SERUM 1.52 MG/DL (0.60-1.30); MAGNESIUM 2.6 MG/DL (1.8-2.4); POTASSIUM 4.8 MMOL/L (3.6-5.0)
[2018-07-30] MEDS: LACTOBACILLUS ACIDOPHILUS (PROBIOTIC) CAPSULE PO SCH ×3 (06:33→17:49)
[2018-07-30] MEDS: inSUlin ASPART (NovoLOG) 1 UNIT/0.01 ML (CHARGE PER UNIT) SC SCH ×4 (06:34→22:14)
[2018-07-30 08:00] VITALS: BP 140/71
[2018-07-30] MEDS: FLECAINIDE 100 MG (TAMBOCOR) TAB PO SCH ×2 (08:30→22:12)
[2018-07-30] MEDS: meTOprolol SUCCINATE 100 MG (TOPROL XL) TAB PO SCH ×2 (08:30→22:12)
[2018-07-30] MEDS: DULoxetine 30 MG (CYMBALTA) CAP PO SCH (08:30)
[2018-07-30] MEDS: APIXABAN 5 MG (ELIQUIS) TABLET PO SCH ×2 (08:31→22:13)
[2018-07-30] MEDS: PANTOPRAZOLE 40 MG (PROTONIX) TAB PO SCH (08:31)
[2018-07-30] MEDS: DILTIAZEM 240 MG (CARDIZEM CD) CAP PO SCH (08:31)
[2018-07-30] MEDS: LORATADINE (CLARITIN) 10 MG TAB PO SCH (08:31)
[2018-07-30] MEDS: AZITHROMYCIN 250 MG TAB (ZITHROMAX) PO SCH (08:31)
[2018-07-30] MEDS: methylPREDNISolone 40 MG/ML (Solu-MEDROL) VIAL IV SCH ×2 (08:31→22:11)
[2018-07-30] MEDS: inSUlin DETERMIR 1 UNIT/0.01 ML (LEVEMIR) CHARGE PER UNIT SQ SCH ×2 (08:32→22:13)
[2018-07-30] MEDS: COLESTIPOL 1 GM (COLESTID) TAB PO SCH ×2 (08:35→22:20)
[2018-07-30] MEDS: oxyCODONE/APAP 10/325MG (PERCOCET 10) TABLET PO PRN ×3 (08:39→22:26)
[2018-07-30] MEDS: GABAPENTIN 600 MG (NEURONTIN) TAB PO SCH ×2 (08:40→22:12)
--- NOTE | 2018-07-30 08:51 | Progress Note ---
Subjective Date Seen by a Provider: Jul 30, 2018 Time Seen by a Provider: 08:50 Focused Exam Lactate Level 07/27/18 18:42: Lactic Acid Level 2.85*H 07/27/18 21:48: Lactic Acid Level 2.24*H 07/28/18 07:10: Lactic Acid Level 1.28 Objective Exam Last Set of Vital Signs Vital Signs Date Time Temp Pulse Resp B/P (MAP) Pulse Ox O2 Delivery O2 Flow Rate FiO2 07/30/18 07:07 74 07/30/18 07:05 86 Room Air 07/30/18 04:53 95.9 16 143/78 (99) 2.00 Capillary Refill : Less Than 3 Seconds I&O Intake and Output 07/30/18 00:00 Intake Total 3447 ml Balance 3447 ml Intake Oral 2127 ml IV Total 1320 ml # Voids 6 # Bowel Movements 1 Results Lab Laboratory Tests 07/29/18 11:13: Glucometer 419*H 07/29/18 13:28: Glucometer 430*H 07/29/18 16:07: Glucometer 395H 07/29/18 19:17: Glucometer 293H 07/30/18 05:04: White Blood Count 14.4H, Red Blood Count 3.12L, Hemoglobin 9.3L, Hematocrit 30L , Mean Corpuscular Volume 97, Mean Corpuscular Hemoglobin 30, Mean Corpuscular Hemoglobin Concent 31L, Red Cell Distribution Width 16.2H, Platelet Count 263, Mean Platelet Volume 10.5H, Neutrophils (%) (Auto) 90H, Lymphocytes (%) (Auto) 8L, Monocytes (%) (Auto) 3, Eosinophils (%) (Auto) 0, Basophils (%) (Auto) 0, Neutrophils # (Auto) 12.9H, Lymphocytes # (Auto) 1.1, Monocytes # (Auto) 0.4, Eosinophils # (Auto) 0.0, Basophils # (Auto) 0.0, Sodium Level 134L, Potassium Level 4.8, Chloride Level 94L, Carbon Dioxide Level 27, Anion Gap 13, Blood Urea Nitrogen 39H, Creatinine 1.52H, Estimat Glomerular Filtration Rate 34, BUN/ Creatinine Ratio 26, Glucose Level 381H, Calcium Level 9.3, Magnesium Level 2.6H 07/30/18 05:47: Glucometer 361H 07/30/18 07:49: Glucometer 389H Microbiology 07/27/18 Blood Culture - Preliminary, Resulted No growth 07/27/18 Influenza Types A,B Antigen (ROBIN) - Final, Complete Assessment/Plan Assessment/Plan Assess & Plan/Chief Complaint PNEUMONIA WITH CHRONIC OXYGEN DEPENDENCE LEUKOCYTOSIS OBSTRUCTIVE SLEEP APNEA HYPERTENSION DIABETES MELLITUS HYPOTHYROIDISM CHRONIC BACK PAIN CHRONIC PERIPHERAL EDEMA ATRIAL FIBRILLATION S/P ABLATION DEBILITY WITH INABILITY TO CARE FOR HERSELF ADL/IADL'S Clinical Quality Measures DVT/VTE Risk/Contraindication: Risk Factor Score Per Nursin RFS Level Per Nursing on Admit: 3=High DAISY JOHNSON MD Jul 30, 2018 08:51
[2018-07-30] MEDS ORDERED: LEVA1.2527 NEB (09:59)
[2018-07-30] MEDS ORDERED: POTA-51 PO (09:59)
[2018-07-30] MEDS ORDERED: DIGO125T PO (09:59)
[2018-07-30] MEDS ORDERED: INSU300I SQ (09:59)
[2018-07-30] MEDS ORDERED: INSU100I14 SQ (09:59)
[2018-07-30] MEDS ORDERED: ONDN4T PO (09:59)
[2018-07-30] MEDS ORDERED: FERR325T18 PO (09:59)
[2018-07-30] MEDS ORDERED: BENZ-13 PO (09:59)
[2018-07-30] MEDS ORDERED: HYOS-20 PO (09:59)
--- NOTE | 2018-07-30 10:06 | Diagnostic Imaging Report ---
INDICATION: Followup pneumonia. TIME OF EXAM: 9:16 AM Correlation is made with prior study from 07/28/2018. FINDINGS: Heart remains enlarged. Cardiac monitoring device overlies the heart. Congestive changes have improved since 2 days earlier. No infiltrates are seen. There is no effusion or pneumothorax. IMPRESSION: Improvement in congestive changes when compared with exam 2 days earlier. Dictated by: Dictated on workstation # [id number]
--- NOTE | 2018-07-30 10:10 | NUR ---
UPDATED MED REC WITH MAR FROM [facility]. CHANGES GIVEN TO PHARMACIST GUILHERME FOR CLARIFICATIONS.
--- NOTE | 2018-07-30 11:13 | Progress Note-Cardiology ---
Cardiology SOAP Progress Note Subjective: C/O FAIRCHILD this morning. No c/o CP or palpitations. C/O dyspnea, which she feels is unchanged from previous. Objective: I&O/Vital Signs 07/30/18 07/30/18 07/30/18 07/30/18 07:05 07:07 07:20 08:00 Temp 97.4 Pulse 74 70 Resp 20 B/P (MAP) 140/71 (94) Pulse Ox 86 97 O2 Delivery Room Air Nasal Cannula Nasal Cannula O2 Flow Rate 2.00 2.00 07/30/18 07/30/18 07/30/18 07/30/18 12:00 13:29 14:48 16:00 Temp 97.6 97.7 Pulse 66 65 64 Resp 20 20 B/P (MAP) 144/71 (95) 146/62 (90) Pulse Ox 99 98 99 O2 Delivery Nasal Cannula Nasal Cannula Nasal Cannula O2 Flow Rate 2.00 2.00 2.00 07/30/18 00:00 Intake Total 2287 ml Balance 2287 ml Weight (Pounds): 225 Weight (Ounces): 0.0 Weight (Calculated Kilograms): 102.330507 Constitutional: AAO x 3, well-developed, well-nourished Respiratory: No accessory muscle use; other (good bilat air entry, diminished at the bases, scattered rhonchi and wheezes) Cardiovascular: regular rate-rhythm, S1 and S2, systolic murmur (faint NGUYEN at card base) Gastrointestional: No tender; soft; No guarding, No rebound; audible bowel sounds Extremities: No clubbing, No cyanosis, No significant edema Neurologic/Psychiatric: oriented x 3, other (seems to be able to move all limbs equally) Skin: No rash on exposed areas, No ulcerations on exposed areas Results/Procedures: Labs Laboratory Tests 07/29/18 19:17: Glucometer 293H 07/30/18 05:04: White Blood Count 14.4H, Red Blood Count 3.12L, Hemoglobin 9.3L, Hematocrit 30L , Mean Corpuscular Volume 97, Mean Corpuscular Hemoglobin 30, Mean Corpuscular Hemoglobin Concent 31L, Red Cell Distribution Width 16.2H, Platelet Count 263, Mean Platelet Volume 10.5H, Neutrophils (%) (Auto) 90H, Lymphocytes (%) (Auto) 8L, Monocytes (%) (Auto) 3, Eosinophils (%) (Auto) 0, Basophils (%) (Auto) 0, Neutrophils # (Auto) 12.9H, Lymphocytes # (Auto) 1.1, Monocytes # (Auto) 0.4, Eosinophils # (Auto) 0.0, Basophils # (Auto) 0.0, Sodium Level 134L, Potassium Level 4.8, Chloride Level 94L, Carbon Dioxide Level 27, Anion Gap 13, Blood Urea Nitrogen 39H, Creatinine 1.52H, Estimat Glomerular Filtration Rate 34, BUN/ Creatinine Ratio 26, Glucose Level 381H, Calcium Level 9.3, Magnesium Level 2.6H 07/30/18 05:47: Glucometer 361H 07/30/18 07:49: Glucometer 389H 07/30/18 11:12: Glucometer 409*H 07/30/18 12:55: Glucometer 378H 07/30/18 17:32: Glucometer 468*H Microbiology 07/27/18 Blood Culture - Preliminary, Resulted No growth 07/27/18 Influenza Types A,B Antigen (ROBIN) - Final, Complete Laboratory Tests 07/29/18 05:45 07/30/18 05:04 A/P: Assessment: Acute Kidney Injury Stage 1 (Cr on 07/28/18 1.16; Cr on 07/29/18 1.54) Pneumonia and altered mental status being managed by Dr Mcgregor H/o SSS, including paroxysmal atrial fibrillation - followed by Dr. Lr and Dr Dyer. 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 Phelps. Mild bilateral carotid stenosis, nonobstructive disease by ultrasound done in March 2016, followed by Dr Dyer Peripheral edema, chronic, waxing and waning. Venous insufficiency scan done March 2016 was negative for reflux. Hypertension Hyperlipidemia, by history Hypothyroidism, followed and managed by primary care physician Maturity-onset diabetes mellitus, followed and managed by primary care physician. Gastric esophageal reflux disease Plan: * NSAIDs dc'd and diuretics being held (to treat TRISTEN stage 1) * Continue previous cardiac recs * Monitor and correct labs Physician Assessment Physician Assessment No cp or palp or syncope; shortness of breath improving Lungs: good air entry, diminished at the bases Cor: reg Ext: no c/c/e A&R * As documented in our note above that I updated (italics) and as noted below * Continue current regimen * Monitor labs * I discussed her case with Dr Motta this am DEJAH GUILLEN [facility] Jul 30, 2018 11:13 [place] FONSECA MD [facility] Jul 30, 2018 18:31
[2018-07-30 12:00] VITALS: BP 144/71
[2018-07-30] MEDS ORDERED: VITAMIN D2 50,000 UNITS (1.25 MG) CAP PO SCH (13:00)
--- NOTE | 2018-07-30 14:15 | NUR ---
Pastoral care visit.
[2018-07-30] MEDS: ALPRAZolam 0.5 MG (XANAX) TAB PO PRN ×2 (15:14→22:25)
[2018-07-30 16:00] VITALS: BP 146/62
--- NOTE | 2018-07-30 16:16 | Pulmonary Progress Note ---
Subjective Time Seen by a Provider: 08:00 Subjective/Events-last exam Pt feels improved. Sepsis Event Evaluation Height, Weight, BMI Height: 5'5.00" Weight: 225lbs. 0.0oz. 102.674439lm; 37.4 BMI Method:Estimated Focused Exam Lactate Level 07/27/18 18:42: Lactic Acid Level 2.85*H 07/27/18 21:48: Lactic Acid Level 2.24*H 07/28/18 07:10: Lactic Acid Level 1.28 Exam Exam Vital Signs Date Time Temp Pulse Resp B/P (MAP) Pulse Ox O2 Delivery O2 Flow Rate FiO2 07/30/18 14:48 98 Nasal Cannula 2.00 07/30/18 13:29 65 07/30/18 12:00 97.6 66 20 144/71 (95) 99 Nasal Cannula 2.00 07/30/18 08:00 97.4 70 20 140/71 (94) 97 Nasal Cannula 2.00 07/30/18 07:07 74 07/30/18 07:05 86 Room Air 07/30/18 04:53 95.9 69 16 143/78 (99) 100 Nasal Cannula 2.00 07/30/18 01:16 98 Nasal Cannula 2.00 07/30/18 01:00 77 07/30/18 00:26 97.5 81 14 146/72 (96) 97 Nasal Cannula 2.00 07/29/18 21:13 98 Nasal Cannula 2.00 07/29/18 20:00 Nasal Cannula 2.00 07/29/18 19:18 97.2 83 20 144/87 (106) 100 Nasal Cannula 2.00 07/29/18 19:00 82 07/29/18 18:57 99 Nasal Cannula 2.00 I & O 07/30/18 06:59 Intake Total 2587 ml Balance 2587 ml Height & Weight Height: 5'5.00" Weight: 225lbs. 0.0oz. 102.952904kp; 37.4 BMI Method:Estimated General Appearance: No Apparent Distress, WD/WN, Anxious, Chronically ill HEENT: PERRL/EOMI, Normal ENT Inspection, Pharynx Normal, Moist Mucous Membranes Neck: Full Range of Motion, Normal Inspection, Non Tender Respiratory: Chest Non Tender, No Accessory Muscle Use, No Respiratory Distress , Crackles, Decreased Breath Sounds, Wheezing Cardiovascular: Regular Rate, Rhythm, No Edema, No Gallop, No JVD, No Murmur, Normal Peripheral Pulses Capillary Refill: Less Than 3 Seconds Extremity: Normal Capillary Refill, Normal Inspection, Normal Range of Motion, Non Tender, No Calf Tenderness, No Pedal Edema Neurologic/Psychiatric: Alert, Oriented x3, No Motor/Sensory Deficits, Normal Mood/Affect Skin: Normal Color, Warm/Dry Lymphatic: No Adenopathy Results Lab Laboratory Tests 07/29/18 05:45 07/30/18 05:04 Assessment/Plan Assessment/Plan Pneumonia with sepsis -Abx -repeat LA -CXR appears improved -Await rahman cultures -Influ is neg and UA is neg -Will need to be cautious with IVF secondary to resp status RLD with asthmaAE -SVNS -Oxygen Atlectasis -IS -SVNS -activity Anemia -Monitor ZIA WU DO Jul 30, 2018 16:16
[2018-07-30 20:00] VITALS: BP 160/72
[2018-07-30] MEDS: cefTRIAXone FOR IV USE 1,000 MG in WATER (STERILE) FOR INJECTION 10 ML IV SCH (22:11)
[2018-07-30] MEDS: DIGOXIN 0.125 MG (LANOXIN) TAB PO SCH (22:13)
[2018-07-30] MEDS: rOPINIRole 0.25 MG (REQUIP) TAB PO SCH (22:13)
[2018-07-31] VITALS: BP 175/80
[2018-07-31] MEDS: RT-ALBUTEROL/IPRATROPIUM 3 ML (DUONEB) VIAL INH SCH ×2 (02:31→07:07)
[2018-07-31 04:00] VITALS: BP 146/76
[2018-07-31] MEDS: oxyCODONE/APAP 10/325MG (PERCOCET 10) TABLET PO PRN (05:16)
[2018-07-31 05:38] LABS: CREATININE SERUM 1.23 MG/DL (0.60-1.30); MAGNESIUM 2.9 MG/DL (1.8-2.4); POTASSIUM 5.3 MMOL/L (3.6-5.0)
[2018-07-31] MEDS: inSUlin ASPART (NovoLOG) 1 UNIT/0.01 ML (CHARGE PER UNIT) SC SCH (06:51)
[2018-07-31] MEDS: LACTOBACILLUS ACIDOPHILUS (PROBIOTIC) CAPSULE PO SCH (06:51)
[2018-07-31] MEDS: APIXABAN 5 MG (ELIQUIS) TABLET PO SCH (07:43)
[2018-07-31] MEDS: DULoxetine 30 MG (CYMBALTA) CAP PO SCH (07:43)
[2018-07-31] MEDS: AZITHROMYCIN 250 MG TAB (ZITHROMAX) PO SCH (07:43)
[2018-07-31] MEDS: inSUlin DETERMIR 1 UNIT/0.01 ML (LEVEMIR) CHARGE PER UNIT SQ SCH (07:43)
[2018-07-31] MEDS: methylPREDNISolone 40 MG/ML (Solu-MEDROL) VIAL IV SCH (07:43)
[2018-07-31] MEDS: FLECAINIDE 100 MG (TAMBOCOR) TAB PO SCH (07:44)
[2018-07-31] MEDS: COLESTIPOL 1 GM (COLESTID) TAB PO SCH (07:44)
[2018-07-31] MEDS: LORATADINE (CLARITIN) 10 MG TAB PO SCH (07:44)
[2018-07-31] MEDS: GABAPENTIN 600 MG (NEURONTIN) TAB PO SCH (07:44)
[2018-07-31 08:00] VITALS: BP 101/73
[2018-07-31] MEDS ORDERED: CEFD300C3 PO (09:00)
[2018-07-31] MEDS ORDERED: GBPN600T PO (09:00)
[2018-07-31] MEDS ORDERED: PROM25TA14 PO (09:00)
[2018-07-31] MEDS ORDERED: PANTOPRAZOLE 40 MG (PROTONIX) TAB PO SCH (09:00)
[2018-07-31] MEDS ORDERED: AZIT250T12 PO (09:00)
--- NOTE | 2018-07-31 09:01 | Discharge Inst-Complex ---
PDI Med Rec & Follow Up Appt. New Medications: Cefdinir (Cefdinir) 300 Mg Capsule 300 MG PO BID, #14 CAP Azithromycin (Azithromycin) 250 Mg Tablet 250 MG PO DAILY, #4 TAB Changed Medications: Gabapentin (Gabapentin) 600 Mg Tablet 600 MG PO TID, #90 TAB 6 Refills (Changed from: 900 MG; Refills: ; Removed Instructions) Promethazine HCl (Promethazine Tablet) 25 Mg Tablet 25 MG PO Q8H PRN for NAUSEA/VOMITING-2ND LINE, #30 TAB (Changed from: Q6H) Continued Medications: Alprazolam (Alprazolam) 0.5 Mg Tablet 0.5 MG PO BID PRN for ANXIETY, TAB Apixaban (Eliquis) 5 Mg Tablet 5 MG PO BID, TAB Benzonatate (Tessalon Perle) 100 Mg Capsule 200 MG PO TID PRN for COUGH, CAP Colestipol HCl (Colestipol HCl) 1 Gm Tablet 1 GM PO BID, TAB Cyclobenzaprine HCl (Cyclobenzaprine HCl) 10 Mg Tablet 10 MG PO Q8H PRN for MUSCLE SPASMS, TAB Digoxin (Digoxin) 125 Mcg Tablet 125 MCG PO DAILY, TAB Diltiazem HCl (Cartia Xt) 240 Mg Cap.er.24h 240 MG PO DAILY, CAP Duloxetine HCl (Duloxetine HCl) 60 Mg Capsule.dr 60 MG PO DAILY, CAP TAKES ALONG WITH 30MG CAPSULES FOR A TOTAL DAILY DOSE OF 90MG Duloxetine HCl (Duloxetine HCl) 30 Mg Capsule.dr 30 MG PO DAILY, CAP TAKES ALONG WITH 60MG CAPSULE FOR A TOTAL DAILY DOSE OF 90MG Ferrous Sulfate (Ferrous Sulfate) 325 Mg Tablet 325 MG PO DAILY, TAB Flecainide Acetate (Flecainide Acetate) 100 Mg Tablet 100 MG PO BID, TAB Furosemide (Furosemide) 40 Mg Tablet 40 MG PO 0800,1100, TAB Hyoscyamine Sulfate (Hyoscyamine Sulfate) 0.125 Mg Tablet 0.125 MG PO TID PRN for SECRETIONS, TAB Insulin Aspart (Novolog Flexpen) 300 Units/3 Ml Solution 14 UNITS SQ AC, EA Insulin Aspart (Novolog Flexpen) 300 Units/3 Ml Solution SQ AC for SLIDING SCALE, EA 150-200 = 1 UNIT 201-250 = 2 UNITS 251-300 = 3 UNITS 301-350 = 4 UNITS 351-400 = 5 UNITS 400+ 6 UNITS Insulin Glargine,Hum.rec.anlog (Toujeo Solostar) 300 Unit/1 Ml Insuln.pen 40 UNIT SQ BID, EA Levalbuterol HCl (Xopenex) 1.25 Mg/3 Ml Vial.neb 1.25 MG NEB Q6H PRN for SHORTNESS OF BREATH, EA Metoprolol Succinate (Metoprolol Succinate) 100 Mg Tab.er.24h 100 MG PO BID, TAB Ondansetron HCl (Zofran) 4 Mg Tab 4 MG PO Q4H PRN for NAUSEA/VOMITING-1ST LINE, TAB Oxycodone HCl/Acetaminophen (Oxycodone-Acetaminophen 10-325) 1 Each Tablet 1-2 TAB PO QID PRN for PAIN-MODERATE, TAB Pantoprazole Sodium (Pantoprazole Sodium) 40 Mg Tablet.dr 40 MG PO DAILY, TAB Potassium Chloride (Potassium Chloride) 20 Meq Tablet.er 20 MEQ PO DAILY, TAB Ropinirole HCl (Ropinirole HCl) 1 Mg Tablet 1 MG PO BID, TAB Prescription: Transmitted to Pharmacy Activity, Diet and PDI Resume Normal Activity: Yes Discharge Diet: ADA Diet Drink 6-8 Glasses of Fluid/Day: Yes Driving Instructions: No Driving/Refer to Symptoms to Reoprt to : Appetite Changes, Fever Over 101 Degrees F, Pain/ Pressure in Chest, Shortness of Breath For Problems or Questions: Contact Your Physician, Go to Emergency Room DAISY JOHNSON MD Jul 31, 2018 09:01
[2018-07-31 09:08] VITALS: BP 146/79
[2018-07-31] MEDS: meTOprolol SUCCINATE 100 MG (TOPROL XL) TAB PO SCH (09:09)
[2018-07-31] MEDS: DILTIAZEM 240 MG (CARDIZEM CD) CAP PO SCH (09:09)
--- NOTE | 2018-07-31 09:18 | NUR ---
Dr. Motta in room to see patient. Informed of C/O dizziness and Potassium- 5.3 and Magnesium- 2.9.
--- NOTE | 2018-07-31 09:21 | Discharge Summary ---
Diagnosis/Chief Complaint Date of Admission Jul 27, 2018 at 21:20 Date of Discharge Discharge Date: Jul 31, 2018 Discharge Time: 1100 Discharge Summary Discharge Physical Examination Allergies: Coded Allergies: Penicillins (Verified Allergy, Severe, SWELLING, HIVES, THROAT SWELLED, 01/21/16) PATIENT HAS RECEIVED CEFEPIME WITHOUT ISSUE Sulfa (Sulfonamide Antibiotics) (Verified Allergy, Severe, TONGUE SWELLED , 01/21/16) Tetanus & Diphtheria Tox,Adult (Verified Allergy, Severe, SWELLING OF THROAT, 01/21/16) codeine (Verified Allergy, Unknown, HAS RECEIVED LORTAB IN THE PAST, ) egg (Unverified Allergy, Unknown, 06/29/16) FROM UNCODED ALLERGIES Vitals & I&Os Vital Signs Date Time Temp Pulse Resp B/P (MAP) Pulse Ox O2 Delivery O2 Flow Rate FiO2 07/31/18 09:08 60 146/79 (101) 97 Nasal Cannula 1.00 07/31/18 08:00 98.5 20 Hospital Course Pending Labs Laboratory Tests 07/31/18 04:50: Sodium Level 134, Potassium Level 5.3, Chloride Level 95, Carbon Dioxide Level 28, Anion Gap 11, Blood Urea Nitrogen 39, Creatinine 1.23, Estimat Glomerular Filtration Rate 43, BUN/Creatinine Ratio 32, Glucose Level 300, Calcium Level 9.0, Magnesium Level 2.9 Discharge Instructions to patient/family Please see electronic discharge instructions given to patient. Discharge Medications Reviewed and agree with Discharge Medication list on patient's Discharge Instruction sheet Clinical Quality Measures DVT/VTE Risk/Contraindication: Risk Factor Score Per Nursin RFS Level Per Nursing on Admit: 3=High DAISY JOHNSON MD Jul 31, 2018 09:21
--- NOTE | 2018-07-31 09:42 | NUR ---
CM/SS. Patient discharged today to return to established residency with [facility]. Visited with patient, her son is going to transport her. Faxed orders to [facility], prepared packet to accompany patient. Updated Unit RN. Addendum: 07/31/18 at 0945 by CARLYN CLINE SS IMM was reviewed with patient, she voices no intention to appeal and signed freely. She has already contacted her son to pick her up and return her to [facility].
--- NOTE | 2018-07-31 10:22 | NUR ---
Report to Mariela who will assume care of patient.
--- NOTE | 2018-07-31 10:22 | NUR ---
Report to RN at [facility].
[2018-07-31 10:45] VITALS: BP 138/80
== END 2018-07-31 10:50 | DRG 871 ==
LOC: EDUNIT# 18:33 → ER 18:35 → 4TH 21:20
PROVIDERS: ADMIT Internal Medicine; ATTEND Internal Medicine
DX: A41.9 Sepsis, unspecified organism (principal); R65.20 Severe sepsis without septic shock; G93.41 Metabolic encephalopathy; J18.1 Lobar pneumonia, unspecified organism; E87.2 Acidosis; J44.0 Chronic obstructive pulmonary disease with (acute) lower respiratory infection; J44.1 Chronic obstructive pulmonary disease with (acute) exacerbation; J98.11 Atelectasis; N17.9 Acute kidney failure, unspecified; R09.02 Hypoxemia; D64.9 Anemia, unspecified; I10 Essential (primary) hypertension; E11.65 Type 2 diabetes mellitus with hyperglycemia; R53.81 Other malaise; G47.33 Obstructive sleep apnea (adult) (pediatric); I48.0 Paroxysmal atrial fibrillation; I25.10 Atherosclerotic heart disease of native coronary artery without angina pectoris; E03.9 Hypothyroidism, unspecified; E66.9 Obesity, unspecified; E78.00 Pure hypercholesterolemia, unspecified; M79.7 Fibromyalgia; R10.84 Generalized abdominal pain; R11.2 Nausea with vomiting, unspecified; R19.7 Diarrhea, unspecified; R26.81 Unsteadiness on feet; E11.40 Type 2 diabetes mellitus with diabetic neuropathy, unspecified; Z99.81 Dependence on supplemental oxygen; Z79.4 Long term (current) use of insulin; Z91.81 History of falling; T49.0X5A Adverse effect of local antifungal, anti-infective and anti-inflammatory drugs, initial encounter
CPT/HCPCS: 36415; 51702; 70450; 71045; 71046; 80048; 80053; 80162; 81000; 82150; 82805; 82962; 83605; 83735; 83880; 84443; 84484; 85007; 85025; 85027; 85610; 85730; 87040; 87804; 93005; 94640; 94760; 96361; 96365; 96375

== ENCOUNTER → 2018-08-15 | Outpatient (CLI) | payer MEDICARE ==
[~2018-08-15] MED LIST changes: +BENZ-13 PO; +CATHETER FLUSH 10 ML SYR IV PRN; +CEFD300C3 PO; +FERR325T18 PO; +HYOS-20 PO; +INSU100I14 SQ; +INSU300I SQ; +LEVA1.2527 NEB; +POTA-51 PO; +REGADENOSON 0.4 MG/5 ML SYR (LEXISCAN) IV ONE
[2018-08-15 12:42] VITALS: BP 126/79
[2018-08-15 12:54] VITALS: BP 150/63
--- NOTE | 2018-08-16 06:31 | STRESS TEST ---
DATE OF SERVICE: 08/15/2018 LEXISCAN MYOVIEW STRESS TEST REPORT REFERRING PHYSICIAN: Tessie Motta MD Baseline heart rate is 76. Baseline blood pressure 176/74. Baseline EKG sinus rhythm with no ischemic changes. In summary, the patient was injected with 10.63 mCi of technetium-99 Myoview and the resting images were obtained. Then, the patient received 0.4 mg of Lexiscan followed by 30.5 mCi of technetium-99 Myoview. Throughout the test, there were no EKG changes. The resting and stressed images were reviewed and compared in the short axis, horizontal long axis, and vertical long axis views. Review of the images showed breast attenuation with typical female pattern, mild decreased uptake at the basal to mid anterior wall with mild reversibility. No significant ischemia or infarction. SSS is 4, SDS is 4, TID value 0.99. On the gated images, the left ventricle appeared to be in normal size with normal contractility. Calculated ejection fraction 84%. CONCLUSION: 1. The patient tolerated Lexiscan well. 2. Breast attenuation with typical female pattern. No significant ischemia or infarction on SPECT images. 3. Normal left ventricular size with normal contractility. Calculated ejection fraction 84%. Job ID: [id number] DocumentID: [id number] Dictated Date: 08/16/2018 06:17:14 Autopsy Pathologist Date: 08/16/2018 06:31:05 Dictated By: WINNIE CLEMENTE MD
== END ==
LOC: CARD 09:22
PROVIDERS: ATTEND Physician Assistant
DX: I25.10 Atherosclerotic heart disease of native coronary artery without angina pectoris (principal); I10 Essential (primary) hypertension; E78.5 Hyperlipidemia, unspecified; K21.9 Gastro-esophageal reflux disease without esophagitis
CPT/HCPCS: 78452; 93017; 93306

== ENCOUNTER → 2019-03-14 | Outpatient (CLI) | payer MEDICARE ==
[~2019-03-14] MED LIST changes: -CATHETER FLUSH 10 ML SYR IV PRN; -DULO30CA48 PO; +DULO30CA49 PO; -DULO60CA58 PO; +DULO60CA59 PO; +NAPH15DR14 OU; -NAPH15DR8 OU; +OMEP20CA13 PO; -REGADENOSON 0.4 MG/5 ML SYR (LEXISCAN) IV ONE
--- NOTE | 2019-03-14 13:49 | Diagnostic Imaging Report ---
PROCEDURE: CT sinuses without contrast TECHNIQUE: Multiple contiguous axial images were obtained through the sinuses without the use of intravenous contrast. Coronal and sagittal reformations were then performed. Auto Exposure Controls were utilized during the CT exam to meet ALARA standards for radiation dose reduction. INDICATION: Sinusitis. FINDINGS: The frontal sinus is clear. Ethmoid air cells and sphenoid sinuses are clear. Bilateral maxillary sinuses are clear. No mucosal thickening or air-fluid levels are seen. Ostiomeatal complexes are patent. There is some nasal septal deviation to the right. There is a daron bullosa on the left. Mastoids are well aerated. IMPRESSION: No evidence of sinusitis. Dictated by: Dictated on workstation # [id number]
== END ==
LOC: RAD 12:48
PROVIDERS: ATTEND Otolaryngology Otolaryngology/Facial Plastic Surgery
DX: J32.9 Chronic sinusitis, unspecified (principal)
CPT/HCPCS: 70486

== ENCOUNTER 2019-03-26 14:49 | Emergency (ER) | payer MEDICARE ==
[~2019-03-26] VITALS: Ht 157.4 cm; Wt 87.7 kg
--- NOTE | 2019-03-26 15:00 | NUR ---
UNABLE TO DRAW BLOOD FROM IV LAB CALLED.
[2019-03-26 15:17] LABS: BASOPHILS % (AUTO) 0 % (0-10); EOSINOPHILS # (AUTO) 0.2 10^3/uL (0.0-0.3); EOSINOPHILS % (AUTO) 2 % (0-10); HEMATOCRIT 38 % (35-52); HEMOGLOBIN 12.2 G/DL (11.5-16.0); LYMPHOCYTES # (AUTO) 1.7 X 10^3 (1.0-4.0); LYMPHOCYTES % (AUTO) 18 % (12-44); MEAN CORPUSCULAR HEMOGLOBIN 30 PG (25-34); MEAN CORPUSCULAR HGB CONC 32 G/DL (32-36); MEAN CORPUSCULAR VOLUME 91 FL (80-99); MEAN PLATELET VOLUME 10.4 FL (7.4-10.4); MONOCYTES # (AUTO) 0.6 X 10^3 (0.0-1.0); MONOCYTES % (AUTO) 6 % (0-12); NEUTROPHILS # (AUTO) 6.9 X 10^3 (1.8-7.8); NEUTROPHILS % (AUTO) 74 % (42-75); PLATELET COUNT 252 10^3/uL (130-400); RED CELL DISTRIBUTION WIDTH 14.3 % (10.0-14.5); WHITE BLOOD COUNT 9.3 10^3/uL (4.3-11.0)
--- NOTE | 2019-03-26 15:23 | ED Fall/Injury ---
General Chief Complaint: Trauma-Non Activation Stated Complaint: FALL Nursing Triage Note: TO ED PER [facility]. IS A RESIDENT AT [facility] WAS SITTING ON TOLIET WHEN SHE PASSED OUT C/O PAIN IN HEAD AND NECK C COLLAR IN PLACE ON ADMIT. PATIENT ALSO REPORTS THAT SHE FELL AND HIT NIGHTSTAND YESTERDAY HITTING L CHEST AREA. Source: patient Exam Limitations: no limitations History of Present Illness Date Seen by Provider: Mar 26, 2019 Time Seen by Provider: 15:54 Initial Comments Here with report of fall. She was apparently sitting on the toilet when she fell off of it and landed on the floor. Complains of right-sided head pain and mid neck pain. Denies other injuries from fall today. Later reports that she had a fall yesterday by rolling out of bed and hitting the floor. On that she had some left-sided chest discomfort and right lower chest discomfort. Denies nausea or vomiting. Denies loss of consciousness but does not know exactly why or how she fell off the toilet today. Does have history of A. fib and she is on blood thinners. She reports taking those as directed. She is currently not in A. fib per EMS who brought her in. Occurred: just prior to arrival (approximately a half hour ago) Severity: moderate Injuries/Pain Location: head, neck Context: unknown Loss of Consciousness: no loss of consciousness Modifying Factors: Improves With Immobilization; Worse With Movement Associated Symptoms (Fall): Chest Pain, Headache; No Lightheadedness, No Muscle Spasms, No Nausea/Vomiting; Neck Pain; No Shortness of Air, No Slurred Speech Allergies and Home Medications Allergies Coded Allergies: Penicillins (Verified Allergy, Severe, SWELLING, HIVES, THROAT SWELLED, 01/21/16) PATIENT HAS RECEIVED CEFEPIME WITHOUT ISSUE Sulfa (Sulfonamide Antibiotics) (Verified Allergy, Severe, TONGUE SWELLED, 01/21/16) Tetanus & Diphtheria Tox,Adult (Verified Allergy, Severe, SWELLING OF THROAT, 01/21/16) codeine (Verified Allergy, Unknown, HAS RECEIVED LORTAB IN THE PAST, 01/21/16) egg (Unverified Allergy, Unknown, 06/29/16) FROM UNCODED ALLERGIES Home Medications Alprazolam 0.5 Mg Tablet, 0.5 MG PO BID PRN for ANXIETY, (Reported) Apixaban 5 Mg Tablet, 5 MG PO BID, (Reported) Azithromycin 250 Mg Tablet, 250 MG PO DAILY Prescribed by: DAISY JOHNSON on 07/31/18 09 Benzonatate 100 Mg Capsule, 200 MG PO TID PRN for COUGH, (Reported) Cefdinir 300 Mg Capsule, 300 MG PO BID Prescribed by: DAISY JOHNSON on 07/31/18899 Colestipol HCl 1 Gm Tablet, 1 GM PO BID, (Reported) Cyclobenzaprine HCl 10 Mg Tablet, 10 MG PO Q8H PRN for MUSCLE SPASMS, (Reported) Digoxin 125 Mcg Tablet, 125 MCG PO DAILY, (Reported) Diltiazem HCl 240 Mg Cap.er.24h, 240 MG PO DAILY, (Reported) Duloxetine HCl 60 Mg Capsule.dr, 60 MG PO DAILY, (Reported) TAKES ALONG WITH 30MG CAPSULES FOR A TOTAL DAILY DOSE OF 90MG Duloxetine HCl 30 Mg Capsule.dr, 30 MG PO DAILY, (Reported) TAKES ALONG WITH 60MG CAPSULE FOR A TOTAL DAILY DOSE OF 90MG Ferrous Sulfate 325 Mg Tablet, 325 MG PO DAILY, (Reported) Flecainide Acetate 100 Mg Tablet, 100 MG PO BID, (Reported) Furosemide 40 Mg Tablet, 40 MG PO 0800,1100, (Reported) Gabapentin 600 Mg Tablet, 600 MG PO TID Prescribed by: DAISY JOHNSON on 07/31/18 09 Hyoscyamine Sulfate 0.125 Mg Tablet, 0.125 MG PO TID PRN for SECRETIONS, (Reported) Insulin Aspart 300 Units/3 Ml Solution, 14 UNITS SQ AC, (Reported) Insulin Aspart 300 Units/3 Ml Solution, SQ AC, (Reported) 150-200 = 1 UNIT 201-250 = 2 UNITS 251-300 = 3 UNITS 301-350 = 4 UNITS 351- 400 = 5 UNITS 400+ 6 UNITS Insulin Glargine,Hum.rec.anlog 300 Unit/1 Ml Insuln.pen, 40 UNIT SQ BID, (Reported) Levalbuterol HCl 1.25 Mg/3 Ml Vial.neb, 1.25 MG NEB Q6H PRN for SHORTNESS OF BREATH, (Reported) Metoprolol Succinate 100 Mg Tab.er.24h, 100 MG PO BID, (Reported) Ondansetron HCl 4 Mg Tab, 4 MG PO Q4H PRN for NAUSEA/VOMITING-1ST LINE, (Reported) Oxycodone HCl/Acetaminophen 1 Each Tablet, 1-2 TAB PO QID PRN for PAIN-MODERATE, (Reported) Pantoprazole Sodium 40 Mg Tablet.dr, 40 MG PO DAILY, (Reported) Potassium Chloride 20 Meq Tablet.er, 20 MEQ PO DAILY, (Reported) Promethazine HCl 25 Mg Tablet, 25 MG PO Q8H PRN for NAUSEA/VOMITING-2ND LINE Prescribed by: DAISY JOHNSON on 07/31/18 0900 Ropinirole HCl 1 Mg Tablet, 1 MG PO BID, (Reported) Patient Home Medication List Home Medication List Reviewed: Yes Review of Systems Review of Systems Constitutional: see HPI; No chills, No fever Eyes: No Symptoms Reported Ears, Nose, Mouth, Throat: no symptoms reported Respiratory: no symptoms reported Cardiovascular: no symptoms reported Gastrointestinal: No diarrhea, No nausea, No vomiting Genitourinary: no symptoms reported : No Musculoskeletal: joint pain, neck pain Skin: No change in color, No rash Psychiatric/Neurological: Headache; Denies Numbness, Denies Paresthesia All Other Systems Reviewed Negative Unless Noted: Yes Past Ojwmvwo-Mhgmay-Fmstkk Hx Past Med/Social Hx: Reviewed Nursing Past Med/Soc Hx Patient Social History Alcohol Use: Denies Use Recreational Drug Use: No 2nd Hand Smoke Exposure: Yes (DAD WAS HEAVY SMOKER) Recent Foreign Travel: No Contact w/Someone Who Travel: No Recent Infectious Disease Expo: No Recent Hopitalizations: No Immunizations Up To Date Tetanus Booster (TDap): Unknown Date of Pneumonia Vaccine: Jan 31, 2012 Seasonal Allergies Seasonal Allergies: Yes Past Medical History Surgeries: Yes (KNEE SCOPES X3 - D&C'S; CARDIAC ABLATION FOR A. FIB; LINQ LOOP RECORDER ) Appendectomy, Breast, Cardiac, Section, Gallbladder, 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, Oophorectomy, Orthopedic, Tonsillectomy Respiratory: Yes (CHRONIC DYSPNEA ON EXERTION; O2 DEPENDENCE) Asthma, Sleep Apnea, COPD Currently Using CPAP: Yes Currently Using BIPAP: No Cardiac: Yes (C/P CARDIAC ABLATION AND LINQ LOOP RECORDER; CHF) Atrial Fibrillation, Chronic Edema/Swelling, Coronary Artery Disease, High Cholesterol, Hypertension, Palpitations Neurological: Yes (VINES'S PALSY) Neuropathy Reproductive Disorders: No Female Reproductive Disorders: Ovarian Cyst [employer] History: 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, Menopausal Sexually Transmitted Disease: No HIV/AIDS: No Genitourinary: Yes UTI-Chronic Gastrointestinal: Yes Colitis, Gastroesophageal Reflux, Diverticulosis, Irritable Bowel Musculoskeletal: Yes (CHRONIC BACK PAIN AND SCIATICA; CHRONIC NECK AND SHOULDER PAIN ) Arthritis, Fibromyalgia, Chronic Back Pain Endocrine: Yes (OBESITY) Diabetes, Insulin dep, Hypothyroidsim HEENT: Yes Tonsilitis Loss of Vision: Denies Hearing Impairment: Denies Cancer: No Psychosocial: Yes Anxiety, Depression Integumentary: No Blood Disorders: Yes (CHRONIC ANEMIA) Adverse Reaction/Blood Tranf: No Family Medical History Reviewed Nursing Family Hx Cardiovascular disease 19 FATHER 19 MOTHER Diabetes mellitus 19 MOTHER Irritable bowel syndrome G8 BROTHER Myocardial infarction 19 FATHER 19 MOTHER TIAs 19 MOTHER Heart Disease, Diabetes, GI Disease, Hypertension, Stroke Physical Exam Vital Signs Vital Signs - First Documented 03/26/19 14:49 Temp 36.3 Pulse 57 Resp 18 B/P (MAP) 129/88 (102) Pulse Ox 97 O2 Delivery Room Air Capillary Refill : Less Than 3 Seconds Height, Weight, BMI Height: 5'5.00" Weight: 225lbs. 0.0oz. 102.648281zw; 35.00 BMI Method:Estimated General Appearance: WD/WN, no apparent distress HEENT: PERRL/EOMI, pharynx normal Neck: tender lateral, tender midline Cardiovascular: regular rate, rhythm, no murmur Respiratory: lungs clear, normal breath sounds Peripheral Pulses: 2+ Dorsalis Pedis (R), 2+ Left Dors-Pedis (L), 2+ Radial Pulses (R), 2+ Radial Pulses (L) Gastrointestinal: non tender, soft Back: normal inspection, no CVA tenderness, no vertebral tenderness Extremities: non-tender, normal inspection Neurologic/Psychiatric: alert, oriented x 3 Skin: normal color, warm/dry Progress/Results/Core Measures Results/Orders Lab Results Laboratory Tests Test 03/26/19 15:12 03/26/19 16:47 Range/Units White Blood Count 9.3 4.3-11.0 10^3/uL Red Blood Count 4.13 L 4.35-5.85 10^6/uL Hemoglobin 12.2 11.5-16.0 G/DL Hematocrit 38 35-52 % Mean Corpuscular Volume 91 80-99 FL Mean Corpuscular Hemoglobin 30 25-34 PG Mean Corpuscular Hemoglobin Concent 32 32-36 G/DL Red Cell Distribution Width 14.3 10.0-14.5 % Platelet Count 252 130-400 10^3/uL Mean Platelet Volume 10.4 7.4-10.4 FL Neutrophils (%) (Auto) 74 42-75 % Lymphocytes (%) (Auto) 18 12-44 % Monocytes (%) (Auto) 6 0-12 % Eosinophils (%) (Auto) 2 0-10 % Basophils (%) (Auto) 0 0-10 % Neutrophils # (Auto) 6.9 1.8-7.8 X 10^3 Lymphocytes # (Auto) 1.7 1.0-4.0 X 10^3 Monocytes # (Auto) 0.6 0.0-1.0 X 10^3 Eosinophils # (Auto) 0.2 0.0-0.3 10^3/uL Basophils # (Auto) 0.0 0.0-0.1 10^3/uL Sodium Level 139 135-145 MMOL/L Potassium Level 4.5 3.6-5.0 MMOL/L Chloride Level 100 98-107 MMOL/L Carbon Dioxide Level 29 21-32 MMOL/L Anion Gap 10 5-14 MMOL/L Blood Urea Nitrogen 19 H 7-18 MG/DL Creatinine 1.13 0.60-1.30 MG/DL Estimat Glomerular Filtration Rate 48 BUN/Creatinine Ratio 17 Glucose Level 104 70-105 MG/DL Calcium Level 8.9 8.5-10.1 MG/DL Corrected Calcium 8.9 8.5-10.1 MG/DL Total Bilirubin 0.4 0.1-1.0 MG/DL Aspartate Amino Transf (AST/SGOT) 29 5-34 U/L Alanine Aminotransferase (ALT/SGPT) 34 0-55 U/L Alkaline Phosphatase 127 40-136 U/L Total Protein 6.4 6.4-8.2 GM/DL Albumin 4.0 3.2-4.5 GM/DL Lipase 33 8-78 U/L Urine Color YELLOW Urine Clarity CLEAR Urine pH 5 5-9 Urine Specific [place] 1.010 L 1.016-1.022 Urine Protein NEGATIVE NEGATIVE Urine Glucose (UA) NEGATIVE NEGATIVE Urine Ketones NEGATIVE NEGATIVE Urine Nitrite NEGATIVE NEGATIVE Urine Bilirubin NEGATIVE NEGATIVE Urine Urobilinogen NORMAL NORMAL MG/DL Urine Leukocyte Esterase NEGATIVE NEGATIVE Urine RBC (Auto) NEGATIVE NEGATIVE Urine RBC NONE /HPF Urine WBC NONE /HPF Urine Crystals NONE /LPF Urine Bacteria TRACE /HPF Urine Casts NONE /LPF Urine Mucus NEGATIVE /LPF Urine Culture Indicated NO My Orders Orders - LOUIE WHALEN MD Ct Head/Cervical Spine Wo (03/26/19 14:57) Chest 1 View, Ap/Pa Only (03/26/19 14:57) Cbc With Automated Diff (03/26/19 14:57) Comprehensive Metabolic Panel (03/26/19 14:57) Lipase (03/26/19 14:57) Ua Culture If Indicated (03/26/19 14:57) Knee, Right, 3 Views (03/26/19 16:51) Ekg Tracing (03/26/19 17:15) Vital Signs/I&O 03/26/19 14:49 Temp 36.3 Pulse 57 Resp 18 B/P (MAP) 129/88 (102) Pulse Ox 97 O2 Delivery Room Air Blood Pressure Mean: 102 POS Progress Progress Note : Progress Note Seen and evaluated. IV, labs, UA, CT head and neck and chest x-ray ordered. Monitor patient.1621 c-collar removed. CT negative. Pending x-ray and UA. Labs reviewed and look okay. Monitor patient. 1730: Patient had complaint of right knee pain so this was ordered. No acute findings. EKG also ordered due to history of A. fib and this also shows sinus with no acute findings. Overall doing better. Discharged home with return precautions. Patient verbalize understanding of instructions and agreement with plan. Initial ECG Impression Date: Mar 26, 2019 Initial ECG Impression Time: 17:20 Initial ECG Rate: 52 Initial ECG Rhythm: Normal Sinus Comment Sinus rhythm with first-degree AV block. No evidence of ST elevation [place]. Similar to previous but slower rate from 07/27/18. Interpreted by me. Normal axis. Diagnostic Imaging Diagonstic Imaging: CT Plain Films/CT/US/NM/MRI: c-spine, head Comments NAME: FAUSTINO LOCO MED REC#: [id number] PT STATUS: REG ER : 1950 PHYSICIAN: LOUIE WHALEN MD ADMIT DATE: 03/26/19/ER Signed POSDate of Exam: 03/26/19 CT HEAD/CERVICAL SPINE WO PROCEDURE: CT head and CT cervical spine without contrast. TECHNIQUE: Multiple contiguous axial images were obtained through the brain and cervical spine without the use of intravenous contrast. Sagittal and coronal reformations through the cervical spine were then performed. Auto Exposure Controls were utilized during the CT exam to meet ALARA standards for radiation dose reduction. INDICATION: Head and neck pain after fall. FINDINGS: There is prominence of the ventricles and sulci. There is mild chronic microvascular ischemic disease. There is no hydrocephalus. There is no midline shift. There is no mass, hemorrhage, or extra-axial fluid collection. The calvarium is intact. The sinuses and mastoid air cells are clear. There is straightening of the normal cervical lordosis. There are large protuberant osteophytes along the anterior aspect of the cervical spine at C2, C3, C4, C5, C6, and C7. The vertebral body heights are well maintained. No fracture or traumatic subluxation. The odontoid is intact. The lateral masses are well aligned. The prevertebral soft tissues are within normal limits. There is some posterior facet arthropathy. Lung apices are clear. IMPRESSION: Atrophy and some chronic microvascular ischemic disease; however, no acute intracranial abnormality. Moderate cervical spondylosis as described without acute fracture or traumatic subluxation. Dictated by: Dictated on workstation # [id number] Dict: 03/26/19 1548 Trans: 03/26/19 1616 Interpreted by: YESSY SEN MD Electronically signed by: YESSY SEN MD 03/26/19 1616 Diagonstic Imaging: Xray Plain Films/CT/US/NM/MRI: chest Comments NAME: FAUSTINO LOCO MED REC#: [id number] PT STATUS: REG ER : 1950 PHYSICIAN: LOUIE WHALEN MD ADMIT DATE: 03/26/19/ER Signed POSDate of Exam: 03/26/19 CHEST 1 VIEW, AP/PA ONLY INDICATION: Recent falls over the past 2 days. TECHNIQUE: Single view chest at 4:35 PM. CORRELATION STUDY: 07/30/2018. FINDINGS: The heart size remains enlarged. The previously noted loop recorder device is not visualized. The vasculature is within normal limits. There is some fullness in the right hilum. The lungs are clear with no consolidating infiltrate. There is no significant effusion or pneumothorax. There are anchor screws over the left humeral head. IMPRESSION: 1. Cardiac enlargement without overt failure. 2. Slight fullness of the right hilum, likely vasculature in nature; however, consideration for short-term followup 2 view chest imaging is recommended. Dictated by: Dictated on workstation # [id number] Dict: 03/26/19 1644 Trans: 03/26/19 1655 Interpreted by: MARIAMA KC DO Electronically signed by: MARIAMA KC DO 03/26/19 1651 Diagonstic Imaging: Xray Plain Films/CT/US/NM/MRI: knee Comments NAME: FAUSTINO LOCO MED REC#: [id number] PT STATUS: REG ER : 1950 PHYSICIAN: LOUIE WHALEN MD ADMIT DATE: 03/26/19/ER Draft POSDate of Exam:03/26/19 KNEE, RIGHT, 3 VIEWS INDICATION: Right-sided knee pain. TECHNIQUE: 3 views of the right knee CORRELATION STUDY: 06/04/2018 FINDINGS: There is joint space narrowing both medially and to a lesser degree laterally. Rather prominent marginal osteophyte formation is noted. A large bony protuberance off the medial tibial plateau. There is marked narrowing at the patellofemoral compartment with rather significant osteophyte formation and spurring about the distal anterior femur as well as superior and inferior pole of the patella. Calcified intraarticular loose body in the suprapatellar region with joint effusion. There does appear to be some soft tissue edema. IMPRESSION: 1. Negative for acute bony abnormality of the knee. Rather advanced multicompartment degenerative change about the right knee. Findings most pronounced at the patellofemoral compartment. Calcified intraarticular loose body noted in the suprapatellar region. Dictated on workstation # [id number] Dict: 03/26/19 1722 Trans: 03/26/19 1735 [id number] Interpreted by: MARIAMA KC DO Electronically signed by: Reviewed: Reviewed by Me Departure Impression Primary Impression: Minor head injury Qualified Codes: S09.90XA - Unspecified injury of head, initial encounter Additional Impressions: Neck strain Qualified Codes: S16.1XXA - Strain of muscle, fascia and tendon at neck level, initial encounter Contusion, multiple sites Disposition: 01 HOME, SELF-CARE Condition: Improved Departure-Patient Inst. Decision time for Depature: 17:39 Referrals: DAISY JOHNSON MD (PCP/Family) Primary Care Physician Patient Instructions: Minor Head Injury, Contusion (DC), Cervical Muscle Strain (DC) Add. Discharge Instructions: All discharge instructions reviewed with patient and/or family. Voiced understanding. Continue home medications as previous as prescribed. Follow-up with your Dr. in one to 2 days for recheck and further evaluation. Return for worse pain, fever, vomiting, weakness, breathing problems or other concerns as needed. It is okay for you to get your recorder tomorrow. Copy Copies To 1: DAISY JOHNSON MD, TIMOTHY D MD Mar 26, 2019 15:22 POS
[2019-03-26 15:41] LABS: BILIRUBIN,TOTAL 0.4 MG/DL (0.1-1.0); CALCIUM 8.9 MG/DL (8.5-10.1); CREATININE SERUM 1.13 MG/DL (0.60-1.30); POTASSIUM 4.5 MMOL/L (3.6-5.0); TOTAL PROTEIN 6.4 GM/DL (6.4-8.2)
--- NOTE | 2019-03-26 15:54 | Diagnostic Imaging Report ---
PROCEDURE: CT head and CT cervical spine without contrast. TECHNIQUE: Multiple contiguous axial images were obtained through the brain and cervical spine without the use of intravenous contrast. Sagittal and coronal reformations through the cervical spine were then performed. Auto Exposure Controls were utilized during the CT exam to meet ALARA standards for radiation dose reduction. INDICATION: Head and neck pain after fall. FINDINGS: There is prominence of the ventricles and sulci. There is mild chronic microvascular ischemic disease. There is no hydrocephalus. There is no midline shift. There is no mass, hemorrhage, or extra-axial fluid collection. The calvarium is intact. The sinuses and mastoid air cells are clear. There is straightening of the normal cervical lordosis. There are large protuberant osteophytes along the anterior aspect of the cervical spine at C2, C3, C4, C5, C6, and C7. The vertebral body heights are well maintained. No fracture or traumatic subluxation. The odontoid is intact. The lateral masses are well aligned. The prevertebral soft tissues are within normal limits. There is some posterior facet arthropathy. Lung apices are clear. IMPRESSION: Atrophy and some chronic microvascular ischemic disease; however, no acute intracranial abnormality. Moderate cervical spondylosis as described without acute fracture or traumatic subluxation. Dictated by: Dictated on workstation # [id number]
--- NOTE | 2019-03-26 16:47 | NUR ---
UP TO [facility] WITH HELP TO OBTAIN UA C/O R KNEE HURTNG MORE DR WHALEN NOTIFIED.
--- NOTE | 2019-03-26 16:49 | Diagnostic Imaging Report ---
INDICATION: Recent falls over the past 2 days. TECHNIQUE: Single view chest at 4:35 PM. CORRELATION STUDY: 07/30/2018. FINDINGS: The heart size remains enlarged. The previously noted loop recorder device is not visualized. The vasculature is within normal limits. There is some fullness in the right hilum. The lungs are clear with no consolidating infiltrate. There is no significant effusion or pneumothorax. There are anchor screws over the left humeral head. IMPRESSION: 1. Cardiac enlargement without overt failure. 2. Slight fullness of the right hilum, likely vasculature in nature; however, consideration for short-term followup 2 view chest imaging is recommended. Dictated by: Dictated on workstation # [id number]
[2019-03-26 16:54] LABS: BILIRUBIN,URINE NEGATIVE (NEGATIVE); CLARITY,URINE CLEAR; COLOR,URINE YELLOW; GLUCOSE, URINE (UA) NEGATIVE (NEGATIVE); KETONES,URINE NEGATIVE (NEGATIVE); LEUKOCYTE ESTERASE ,URINE NEGATIVE (NEGATIVE); NITRITE,URINE NEGATIVE (NEGATIVE); PH,URINE 5 (5-9); PROTEIN,URINE NEGATIVE (NEGATIVE)
[2019-03-26 17:16] LABS: BACTERIA,URINE TRACE /HPF
--- NOTE | 2019-03-26 17:35 | Diagnostic Imaging Report ---
INDICATION: Right-sided knee pain. TECHNIQUE: 3 views of the right knee CORRELATION STUDY: 06/04/2018 FINDINGS: There is joint space narrowing both medially and to a lesser degree laterally. Rather prominent marginal osteophyte formation is noted. A large bony protuberance off the medial tibial plateau. There is marked narrowing at the patellofemoral compartment with rather significant osteophyte formation and spurring about the distal anterior femur as well as superior and inferior pole of the patella. Calcified intraarticular loose body in the suprapatellar region with joint effusion. There does appear to be some soft tissue edema. IMPRESSION: 1. Negative for acute bony abnormality of the knee. Rather advanced multicompartment degenerative change about the right knee. Findings most pronounced at the patellofemoral compartment. Calcified intraarticular loose body noted in the suprapatellar region. Dictated by: Dictated on workstation # [id number]
--- NOTE | 2019-03-26 17:47 | NUR ---
[facility] CALLED WILL COME GET PATIENT.
[2019-03-26 17:57] VITALS: BP 113/40
== END 2019-03-26 17:46 | disposition home or self-care (01) ==
LOC: EDUNIT# 14:49 → ER 14:50
DX: S09.90XA Unspecified injury of head, initial encounter (principal); S16.1XXA Strain of muscle, fascia and tendon at neck level, initial encounter; T14.8XXA Other injury of unspecified body region, initial encounter; I10 Essential (primary) hypertension; E11.40 Type 2 diabetes mellitus with diabetic neuropathy, unspecified; I25.10 Atherosclerotic heart disease of native coronary artery without angina pectoris; E78.00 Pure hypercholesterolemia, unspecified; J44.9 Chronic obstructive pulmonary disease, unspecified; I48.91 Unspecified atrial fibrillation; K21.9 Gastro-esophageal reflux disease without esophagitis; M79.7 Fibromyalgia; E03.9 Hypothyroidism, unspecified; F41.9 Anxiety disorder, unspecified; F32.9 Major depressive disorder, single episode, unspecified; G51.0 Bell's palsy; G47.30 Sleep apnea, unspecified; D64.9 Anemia, unspecified; Z87.440 Personal history of urinary (tract) infections; Z99.89 Dependence on other enabling machines and devices; Z90.49 Acquired absence of other specified parts of digestive tract; Z90.710 Acquired absence of both cervix and uterus; Z90.89 Acquired absence of other organs; Z88.0 Allergy status to penicillin; Z88.2 Allergy status to sulfonamides; Z88.5 Allergy status to narcotic agent; Z79.01 Long term (current) use of anticoagulants; Z79.4 Long term (current) use of insulin; Z77.22 Contact with and (suspected) exposure to environmental tobacco smoke (acute) (chronic); W18.12XA Fall from or off toilet with subsequent striking against object, initial encounter
CPT/HCPCS: 36415; 70450; 71045; 72125; 73562; 80053; 81000; 83690; 85025; 93005

== ENCOUNTER 2019-03-27 08:22 | Day surgery (SDC) | payer MEDICARE ==
[~2019-03-27] VITALS: Ht 157 cm; Wt 87.7 kg
[2019-03-27] MEDS ORDERED: LIDOCAINE 1% INJ 20 ML 20 ML VIAL ONE (08:25)
[2019-03-27] MEDS ORDERED: LIDOCAINE 1% INJ 20 ML 20 ML VIAL INJ ONE (08:30)
[2019-03-27 08:39] VITALS: BP 136/69
--- NOTE | 2019-03-27 09:19 | Implantation of Loop Monitor ---
Implant of Loop Monitior IMPLANTATION OF LOOP MONITOR REPORT DATE OF PROCEDURE: 03/27/19 PREOP DIAGNOSIS: syncope, paroxysmal atrial fibrillation POSTOP DIAGNOSIS: syncope, paroxysmal atrial fibrillation PROCEDURE DETAILS: The patient is a 68 female with history of paroxysmal atrial fibrillation requiring long-term surveillance. Therefore implantable loop recorder was discussed and agreed with the patient. Informed consent was taken. All risks and complications were discussed at length. The patient was draped and prepped in the usual sterile fashion. Local anesthesia was lidocaine, which was given in the substernal area close to the 4th intercostal space. Loop monitor [employer] with serial number [id number] was implanted according to the protocol. Steri- Strips were placed at the end of the procedure. There were no complications and the patient tolerated the procedure well. The device was interrogated with a voltage of. ANESTHESIA: Local anesthesia with lidocaine. COMPLICATIONS: None CONTRAST/FLUOROSCOPY: None CONCLUSION: Successful loop recorder implantation with no complication FINAL DIAGNOSIS: Syncope Paroxysmal atrial fibrillation Palpitation WINNIE CLEMENTE MD Mar 27, 2019 09:19 POS
[2019-03-27 09:24] VITALS: BP 130/78
== END 2019-03-27 09:29 | disposition home or self-care (01) ==
LOC: CATH 08:22
PROVIDERS: ATTEND Internal Medicine Cardiovascular Disease
DX: I48.0 Paroxysmal atrial fibrillation (principal); I47.1 Supraventricular tachycardia; I10 Essential (primary) hypertension; I25.10 Atherosclerotic heart disease of native coronary artery without angina pectoris; I65.23 Occlusion and stenosis of bilateral carotid arteries; I49.5 Sick sinus syndrome; K21.9 Gastro-esophageal reflux disease without esophagitis; G47.33 Obstructive sleep apnea (adult) (pediatric); E11.9 Type 2 diabetes mellitus without complications; E78.5 Hyperlipidemia, unspecified; E66.9 Obesity, unspecified; J44.9 Chronic obstructive pulmonary disease, unspecified; I27.20 Pulmonary hypertension, unspecified; M19.90 Unspecified osteoarthritis, unspecified site; M48.061 Spinal stenosis, lumbar region without neurogenic claudication; M47.812 Spondylosis without myelopathy or radiculopathy, cervical region; Z68.36 Body mass index [BMI] 36.0-36.9, adult; Z88.5 Allergy status to narcotic agent; Z88.0 Allergy status to penicillin; Z88.2 Allergy status to sulfonamides; Z88.7 Allergy status to serum and vaccine; Z91.040 Latex allergy status; Z79.01 Long term (current) use of anticoagulants; Z90.89 Acquired absence of other organs; Z90.710 Acquired absence of both cervix and uterus
CPT/HCPCS: 33285

== ENCOUNTER 2019-04-15 18:22 | Emergency (ER) | payer MEDICARE ==
[~2019-04-15] VITALS: Ht 154 cm; Wt 86.3 kg
[2019-04-15] MEDS ORDERED: LACTATED RINGERS 1,000 ML IV ONE (18:28)
[2019-04-15] MEDS ORDERED: PANTOPRAZOLE 40 MG (PROTONIX) VIAL IV ONE (18:30)
[2019-04-15] MEDS ORDERED: ONDANSETRON 4 MG/2 ML (SDV) Z0FRAN IVP ONE ×2 (18:30→20:00)
[2019-04-15 18:38] LABS: BASOPHILS % (AUTO) 0 % (0-10); EOSINOPHILS # (AUTO) 0.1 10^3/uL (0.0-0.3); EOSINOPHILS % (AUTO) 1 % (0-10); HEMATOCRIT 43 % (35-52); HEMOGLOBIN 14.1 G/DL (11.5-16.0); LYMPHOCYTES # (AUTO) 0.3 X 10^3 (1.0-4.0); LYMPHOCYTES % (AUTO) 3 % (12-44); MEAN CORPUSCULAR HEMOGLOBIN 31 PG (25-34); MEAN CORPUSCULAR HGB CONC 33 G/DL (32-36); MEAN CORPUSCULAR VOLUME 92 FL (80-99); MEAN PLATELET VOLUME 10.3 FL (7.4-10.4); MONOCYTES # (AUTO) 0.4 X 10^3 (0.0-1.0); MONOCYTES % (AUTO) 3 % (0-12); NEUTROPHILS # (AUTO) 11.6 X 10^3 (1.8-7.8); NEUTROPHILS % (AUTO) 94 % (42-75); PLATELET COUNT 251 10^3/uL (130-400); RED CELL DISTRIBUTION WIDTH 14.1 % (10.0-14.5); WHITE BLOOD COUNT 12.4 10^3/uL (4.3-11.0)
--- NOTE | 2019-04-15 18:38 | ED Abdominal Pain ---
General Chief Complaint: Abdominal/GI Problems Stated Complaint: ABD PAIN Source of Information: Patient, EMS Exam Limitations: No Limitations History of Present Illness Date Seen by Provider: Apr 15, 2019 Time Seen by Provider: 18:19 Initial Comments Patient presents to ER by EMS from [facility] where she's been complaining since yesterday having generalized abdominal discomfort. She has a history of irritable bowel syndrome. She has anxiety as well. Eats to her symptoms. She's not had any fevers or chills but she's had some allover abdominal pain and then today started having some loose stools without blood in it and nausea and vomiting. She took Zofran for her last dose being about noon. She had a history of a but no other abdominal surgeries. No, or falls. She endorses nausea presently as well as pain across the top of her abdomen especially running right to left. No pain. She's had some mild discomfort in her urination recently. No discharge. She's had these symptoms frequently since becoming a and has had a lot of anxiety problems and her doctor has done extensive workup on an outpatient and suspects maybe some of her symptoms are anxiety related. She's been skipping out on mental health appointments but she is taking her medications appropriately. She's not on a blood thinner. Staff noted her blood sugar to be about 55 just prior to EMS arrival. She is been given some orange juice and other foods and she threw them up. EMS noted her b lood sugar was around 110 when they arrived. She is on NovoLog and Trujeo. Her stated allergy to penicillin is rash and nausea. Allergies and Home Medications Allergies Coded Allergies: Penicillins (Verified Allergy, Severe, SWELLING, HIVES, THROAT SWELLED, 01/21/16) PATIENT HAS RECEIVED CEFEPIME WITHOUT ISSUE Sulfa (Sulfonamide Antibiotics) (Verified Allergy, Severe, TONGUE SWELLED, 01/21/16) Tetanus & Diphtheria Tox,Adult (Verified Allergy, Severe, SWELLING OF THROAT, 01/21/16) codeine (Verified Allergy, Unknown, HAS RECEIVED LORTAB IN THE PAST, 01/21/16) egg (Unverified Allergy, Unknown, 06/29/16) FROM UNCODED ALLERGIES Home Medications Alprazolam 0.5 Mg Tablet, 0.5 MG PO BID PRN for ANXIETY, (Reported) Apixaban 5 Mg Tablet, 5 MG PO BID, (Reported) Azithromycin 250 Mg Tablet, 250 MG PO DAILY Prescribed by: DAISY JOHNSON on 07/31/18 0900 Benzonatate 100 Mg Capsule, 200 MG PO TID PRN for COUGH, (Reported) Cefdinir 300 Mg Capsule, 300 MG PO BID Prescribed by: DAISY JOHNSON on 07/31/18 09 Colestipol HCl 1 Gm Tablet, 1 GM PO BID, (Reported) Cyclobenzaprine HCl 10 Mg Tablet, 10 MG PO Q8H PRN for MUSCLE SPASMS, (Reported) Digoxin 125 Mcg Tablet, 125 MCG PO DAILY, (Reported) Diltiazem HCl 240 Mg Cap.er.24h, 240 MG PO DAILY, (Reported) Duloxetine HCl 60 Mg Capsule.dr, 60 MG PO DAILY, (Reported) TAKES ALONG WITH 30MG CAPSULES FOR A TOTAL DAILY DOSE OF 90MG Duloxetine HCl 30 Mg Capsule.dr, 30 MG PO DAILY, (Reported) TAKES ALONG WITH 60MG CAPSULE FOR A TOTAL DAILY DOSE OF 90MG Ferrous Sulfate 325 Mg Tablet, 325 MG PO DAILY, (Reported) Flecainide Acetate 100 Mg Tablet, 100 MG PO BID, (Reported) Furosemide 40 Mg Tablet, 40 MG PO 0800,1100, (Reported) Gabapentin 600 Mg Tablet, 600 MG PO TID Prescribed by: DAISY JOHNSON on 07/31/18 0900 Hyoscyamine Sulfate 0.125 Mg Tablet, 0.125 MG PO TID PRN for SECRETIONS, (Reported) Insulin Aspart 300 Units/3 Ml Solution, 14 UNITS SQ AC, (Reported) Insulin Aspart 300 Units/3 Ml Solution, SQ AC, (Reported) 150-200 = 1 UNIT 201-250 = 2 UNITS 251-300 = 3 UNITS 301-350 = 4 UNITS 351- 400 = 5 UNITS 400+ 6 UNITS Insulin Glargine,Hum.rec.anlog 300 Unit/1 Ml Insuln.pen, 40 UNIT SQ BID, (Reported) Levalbuterol HCl 1.25 Mg/3 Ml Vial.neb, 1.25 MG NEB Q6H PRN for SHORTNESS OF BREATH, (Reported) Metoprolol Succinate 100 Mg Tab.er.24h, 100 MG PO BID, (Reported) Ondansetron HCl 4 Mg Tab, 4 MG PO Q4H PRN for NAUSEA/VOMITING-1ST LINE, (Reported) Oxycodone HCl/Acetaminophen 1 Each Tablet, 1-2 TAB PO QID PRN for PAIN-MODERATE, (Reported) Pantoprazole Sodium 40 Mg Tablet.dr, 40 MG PO DAILY, (Reported) Potassium Chloride 20 Meq Tablet.er, 20 MEQ PO DAILY, (Reported) Promethazine HCl 25 Mg Tablet, 25 MG PO Q8H PRN for NAUSEA/VOMITING-2ND LINE Prescribed by: DAISY JOHNSON on 07/31/18 0900 Ropinirole HCl 1 Mg Tablet, 1 MG PO BID, (Reported) Patient Home Medication List Home Medication List Reviewed: Yes Review of Systems Review of Systems Constitutional: No chills, No diaphoresis, No fever EENTM: No Blurred Vision, No Double Vision Respiratory: Denies Cough, Denies Shortness of Air Cardiovascular: Denies Chest Pain, Denies Edema Gastrointestinal: See HPI, Abdominal Pain; Denies Constipated; Diarrhea, Nausea, Poor Appetite, Poor Fluid Intake, Vomiting Genitourinary: Burning; Denies Discharge, Denies Drainage Musculoskeletal: No back pain, No joint pain Skin: No change in color, No pruritus, No rash Psychiatric/Neurological: Denies Headache, Denies Numbness Past Aciwtfd-Rtvzsm-Huirdm Hx Patient Social History Alcohol Use: Denies Use Recreational Drug Use: No Smoking Status: Never a Smoker 2nd Hand Smoke Exposure: Yes (DAD WAS HEAVY SMOKER) Recent Foreign Travel: No Contact w/Someone Who Travel: No Recent Hopitalizations: No Physical Abuse: No Sexual Abuse: No Mistreated: No Fear: No Immunizations Up To Date Tetanus Booster (TDap): Unknown PED Vaccines UTD: Yes Date of Pneumonia Vaccine: Jan 31, 2012 Seasonal Allergies Seasonal Allergies: Yes Past Medical History Surgeries: Yes (KNEE SCOPES X3 - D&C'S; CARDIAC ABLATION FOR A. 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, Menopausal Sexually Transmitted Disease: No HIV/AIDS: No Genitourinary: Yes UTI-Chronic Gastrointestinal: Yes Colitis, Gastroesophageal Reflux, Diverticulosis, Irritable Bowel Musculoskeletal: Yes (CHRONIC BACK PAIN AND SCIATICA; CHRONIC NECK AND SHOULDER PAIN ) Arthritis, Fibromyalgia, Chronic Back Pain Endocrine: Yes (OBESITY) Diabetes, Insulin dep, Hypothyroidsim HEENT: Yes Tonsilitis Loss of Vision: Denies Hearing Impairment: Denies Cancer: No Psychosocial: Yes Anxiety, Depression Integumentary: No Blood Disorders: Yes (CHRONIC ANEMIA) Adverse Reaction/Blood Tranf: No Family Medical History Cardiovascular disease 19 FATHER 19 MOTHER Diabetes mellitus 19 MOTHER Irritable bowel syndrome G8 BROTHER Myocardial infarction 19 FATHER 19 MOTHER TIAs 19 MOTHER Heart Disease, Diabetes, GI Disease, Hypertension, Stroke Physical Exam Vital Signs Vital Signs - First Documented 04/15/19 18:22 Pulse 92 Resp 23 B/P (MAP) 153/79 (103) Pulse Ox 97 O2 Delivery Nasal Cannula O2 Flow Rate 2.00 Capillary Refill : Height/Weight/BMI Height: 5'5.00" Weight: 225lbs. 0.0oz. 102.124792wa; 35.57 BMI Method:Estimated General Appearance: WD/WN, mild distress HEENT: PERRL/EOMI, pharynx normal Neck: full range of motion, normal inspection Respiratory: lungs clear, normal breath sounds, no respiratory distress, no accessory muscle use Cardiovascular: normal peripheral pulses, regular rate, rhythm Peripheral Pulses: 2+ Radial Pulses (R), 2+ Radial Pulses (L) Gastrointestinal: normal bowel sounds, soft, no pulsatile mass; No guarding, No rebound; tenderness (all 4 quadrants) Extremities: normal range of motion, non-tender, normal inspection Neurologic/Psychiatric: alert, normal mood/affect, oriented x 3 Skin: normal color, warm/dry Progress/Results/Core Measures Results/Orders Lab Results Laboratory Tests Test 04/15/19 18:30 04/15/19 20:18 Range/Units White Blood Count 12.4 H 4.3-11.0 10^3/uL Red Blood Count 4.62 4.35-5.85 10^6/uL Hemoglobin 14.1 11.5-16.0 G/DL Hematocrit 43 35-52 % Mean Corpuscular Volume 92 80-99 FL Mean Corpuscular Hemoglobin 31 25-34 PG Mean Corpuscular Hemoglobin Concent 33 32-36 G/DL Red Cell Distribution Width 14.1 10.0-14.5 % Platelet Count 251 130-400 10^3/uL Mean Platelet Volume 10.3 7.4-10.4 FL Neutrophils (%) (Auto) 94 H 42-75 % Lymphocytes (%) (Auto) 3 L 12-44 % Monocytes (%) (Auto) 3 0-12 % Eosinophils (%) (Auto) 1 0-10 % Basophils (%) (Auto) 0 0-10 % Neutrophils # (Auto) 11.6 H 1.8-7.8 X 10^3 Lymphocytes # (Auto) 0.3 L 1.0-4.0 X 10^3 Monocytes # (Auto) 0.4 0.0-1.0 X 10^3 Eosinophils # (Auto) 0.1 0.0-0.3 10^3/uL Basophils # (Auto) 0.0 0.0-0.1 10^3/uL Sodium Level 141 135-145 MMOL/L Potassium Level 4.5 3.6-5.0 MMOL/L Chloride Level 99 98-107 MMOL/L Carbon Dioxide Level 26 21-32 MMOL/L Anion Gap 16 H 5-14 MMOL/L Blood Urea Nitrogen 20 H 7-18 MG/DL Creatinine 0.97 0.60-1.30 MG/DL Estimat Glomerular Filtration Rate 57 BUN/Creatinine Ratio 21 Glucose Level 124 H 70-105 MG/DL Calcium Level 9.0 8.5-10.1 MG/DL Corrected Calcium 8.8 8.5-10.1 MG/DL Total Bilirubin 0.5 0.1-1.0 MG/DL Aspartate Amino Transf (AST/SGOT) 37 H 5-34 U/L Alanine Aminotransferase (ALT/SGPT) 40 0-55 U/L Alkaline Phosphatase 135 40-136 U/L C-Reactive Protein High Sensitivity 2.59 H 0.00-0.50 MG/DL Total Protein 7.4 6.4-8.2 GM/DL Albumin 4.3 3.2-4.5 GM/DL Lipase 45 8-78 U/L Urine Color YELLOW Urine Clarity CLEAR Urine pH 5.5 5-9 Urine Specific [place] 1.025 H 1.016-1.022 Urine Protein NEGATIVE NEGATIVE Urine Glucose (UA) NEGATIVE NEGATIVE Urine Ketones NEGATIVE NEGATIVE Urine Nitrite NEGATIVE NEGATIVE Urine Bilirubin NEGATIVE NEGATIVE Urine Urobilinogen 0.2 < = 1.0 MG/DL Urine Leukocyte Esterase NEGATIVE NEGATIVE Urine RBC (Auto) TRACE-I NEGATIVE Urine RBC RARE /HPF Urine WBC 0-2 /HPF Urine Squamous Epithelial Cells 5-10 /HPF Urine Crystals NONE /LPF Urine Bacteria TRACE /HPF Urine Casts NONE /LPF Urine Mucus NEGATIVE /LPF Urine Culture Indicated NO My Orders Orders - MIYA CORREA Ondansetron Injection (Zofran Injectio (04/15/19 18:30) Pantoprazole Injection (Protonix Injecti (04/15/19 18:30) Ed Iv/Invasive Line Start (04/15/19 18:28) Lactated Ringers (Lr 1000 Ml Iv Solution (04/15/19 18:28) Cbc With Automated Diff (04/15/19 18:28) Comprehensive Metabolic Panel (04/15/19 18:28) Hs C Reactive Protein (04/15/19 18:28) Ua Culture If Indicated (04/15/19 18:28) Lipase (04/15/19 18:28) Fentanyl Injection (Sublimaze Injection (04/15/19 20:00) Ondansetron Injection (Zofran Injectio (04/15/19 20:00) Ct Abdomen/Pelvis W (04/15/19 20:45) Iohexol Injection (Omnipaque 350 Mg/Ml 1 (04/15/19 21:00) Received Contrast (Hold Metformin- Contr (04/15/19 21:00) Sodium Chloride Flush (Catheter Flush Sy (04/15/19 21:00) Ns (Ivpb) (Sodium Chloride 0.9% Ivpb Bag (04/15/19 21:00) Medications Given in ED Current Medications Medications Dose Ordered Sig/Jorge Route Start Time Stop Time Status Last Admin Dose Admin Fentanyl Citrate 50 mcg ONCE ONCE IVP 04/15/19 20:00 04/15/19 20:01 DC 04/15/19 21:08 50 MCG Iohexol 100 ml ONCE ONCE IV 04/15/19 21:00 04/15/19 21:01 DC 04/15/19 21:15 100 ML Lactated Ringer's 1,000 ml @ 0 mls/hr Q0M ONCE IV 04/15/19 18:28 04/15/19 18:32 DC 04/15/19 18:38 0 MLS/HR Ondansetron HCl 4 mg ONCE ONCE IVP 04/15/19 18:30 04/15/19 18:32 DC 04/15/19 18:38 4 MG Ondansetron HCl 4 mg ONCE ONCE IVP 04/15/19 20:00 04/15/19 20:01 DC 04/15/19 21:09 4 MG Pantoprazole 40 mg ONCE ONCE IV 04/15/19 18:30 04/15/19 18:32 DC 04/15/19 18:39 40 MG Sodium Chloride 10 ml NEEDED PRN IV 04/15/19 21:00 04/15/19 21:15 10 ML Sodium Chloride 100 ml ONCE ONCE IV 04/15/19 21:00 04/15/19 21:01 DC 04/15/19 21:15 100 ML Vital Signs/I&O 04/15/19 18:22 Pulse 92 Resp 23 B/P (MAP) 153/79 (103) Pulse Ox 97 O2 Delivery Nasal Cannula O2 Flow Rate 2.00 Progress Progress Note #1: Time: 18:37 Progress Note Liter of lactated Ringer's and check some labs. We can recheck her sugar later. Zofran for nausea. Her symptoms are consistent with a gastroenteritis possibly viral. She does not have an acute surgical abdomen. No mesenteric signs. We have a low threshold to image her abdomen. We have discussed imaging versus obtaining labs to include lipase first and she would prefer us to pursue the latter route and image if necessary. Progress Note #2: Time: 21:[address] findings and her history could be consistent with changes from a gastroenteritis and colitis versus from her being on laxatives from constipation over the last week. No acute abdominal findings. She is feeling better so we'll allow her to go home. Diagnostic Imaging Diagonstic Imaging: CT Plain Films/CT/US/NM/MRI: abdomen, pelvis Comments NAME: FAUSTINO LOCO MED REC#: [id number] PT STATUS: REG ER : 1950 PHYSICIAN: MIYA CORREA MD ADMIT DATE: 04/15/19/ER Draft POSDate of Exam:04/15/19 CT ABDOMEN/PELVIS W PROCEDURE: CT abdomen and pelvis with contrast. TECHNIQUE: Multiple contiguous axial images were obtained through the abdomen and pelvis after administration of intravenous contrast. Auto Exposure Controls were utilized during the CT exam to meet ALARA standards for radiation dose reduction. DATE: April 15, 2019. COMPARISON: CT chest abdomen and pelvis February 16, 2017. INDICATION: 68-year-old female, abdominal pain. FINDINGS: There is a 3 mm noncalcified right lower lobe pulmonary nodule on axial image 3. This is stable since at least December 2015 consistent with benign etiology. There are dependent linear opacities on the right lower lobe and left lower lobe likely relating to atelectasis. There is a 3 mm left lower lobe pulmonary nodule on axial image 9 which is also stable for greater than 2 years consistent with benign etiology. The heart is not enlarged. There is no pericardial effusion. The liver is normal in size and contour. There is no identified liver lesion. The main, right, and left portal veins are patent. The patient is status post cholecystectomy. There is no biliary ductal dilation. The main pancreatic duct is not abnormally dilated. Unremarkable appearance of the pancreatic parenchyma. The spleen is normal in size. The adrenal glands are unremarkable. Unremarkable appearance of the renal parenchyma. The urinary collecting systems are not distended. There is no identified renal or ureteral stone. There is nonspecific henna mesenteric stranding. The uterus is not seen and may be surgically absent. The intestinal tract is not distended. The appendix is not well seen. There are no secondary findings to specifically suggest acute appendicitis. There is no free intraperitoneal air. There is no drainable fluid collection. There is no free pelvic fluid. There are atherosclerotic calcifications. There is no identified abnormally enlarged lymph node in the abdomen or pelvis which meets CT size criteria for adenopathy. There are several small sclerotic lesions of the pelvis with unchanged appearance since January 14, 2016. These likely relate to multiple small benign bone islands. There are degenerative changes of the spine. There is no identified acute bony abnormality. IMPRESSION: CT ABDOMEN AND PELVIS. 1. No identified acute abnormality in the abdomen or pelvis. 2. Nonspecific henna mesenteric stranding. 3. Benign subcentimeter right lower lobe and left lower lobe pulmonary nodules. Dictated on workstation # [id number] Dict: 04/15/192127 Trans: 04/15/192141 [facility] [id number] Interpreted by: EMIL HARRIS MD Electronically signed by: Reviewed: Reviewed by Me Departure Impression Primary Impression: Gastroenteritis Disposition: 01 HOME, SELF-CARE Condition: Stable Departure-Patient Inst. Decision time for Depature: 21:59 Referrals: DAISY JOHNSON MD (PCP/Family) Primary Care Physician Patient Instructions: [id number] Add. Discharge Instructions: The findings on your CT are nonspecific and could be related to a virus causing an infection of your small intestine for these findings could be related to your having recently been on a heavy load of laxatives. At this time you are not constipated and do not necessarily need to continue laxatives in the short-term. It is certainly okay if you take them in the future. Use the prescribed nausea medicines and drink plenty of fluids. Follow-up with primary care if you're not feeling better in the next 3-5 days. Return to the ER if you begin to have intractable abdominal pain that does not respond to your medications or other worrisome symptoms. All discharge instructions reviewed with patient and/or family. Voiced understanding. MIYA CORREA Apr 15, 2019 18:38 POS
[2019-04-15 19:02] LABS: ALBUMIN 4.3 GM/DL (3.2-4.5); BILIRUBIN,TOTAL 0.5 MG/DL (0.1-1.0); CREATININE SERUM 0.97 MG/DL (0.60-1.30); POTASSIUM 4.5 MMOL/L (3.6-5.0); TOTAL PROTEIN 7.4 GM/DL (6.4-8.2)
[2019-04-15] MEDS ORDERED: fentaNYL INJECTION 100 MCG/2 ML AMP IVP ONE (20:00)
[2019-04-15 20:26] LABS: BILIRUBIN,URINE NEGATIVE (NEGATIVE); CLARITY,URINE CLEAR; COLOR,URINE YELLOW; GLUCOSE, URINE (UA) NEGATIVE (NEGATIVE); KETONES,URINE NEGATIVE (NEGATIVE); LEUKOCYTE ESTERASE ,URINE NEGATIVE (NEGATIVE); NITRITE,URINE NEGATIVE (NEGATIVE); PH,URINE 5.5 (5-9); PROTEIN,URINE NEGATIVE (NEGATIVE)
[2019-04-15 20:32] LABS: BACTERIA,URINE TRACE /HPF; RBC,URINE RARE /HPF; WBC,URINE 0-2 /HPF
[2019-04-15] MEDS ORDERED: IOHEXOL 350 MG/ML 100 ML (OMNIPAQUE 350) VIAL IV ONE (21:00)
[2019-04-15] MEDS ORDERED: NS 100 ML (IVPB) BAG IV ONE (21:00)
[2019-04-15] MEDS ORDERED: CATHETER FLUSH 10 ML SYR IV PRN (21:00)
[2019-04-15] MEDS ORDERED: HOLD METFORMIN - RECEIVED CONTRAST 20 ML VIAL IV SCH (21:00)
--- NOTE | 2019-04-15 21:43 | Diagnostic Imaging Report ---
PROCEDURE: CT abdomen and pelvis with contrast. TECHNIQUE: Multiple contiguous axial images were obtained through the abdomen and pelvis after administration of intravenous contrast. Auto Exposure Controls were utilized during the CT exam to meet ALARA standards for radiation dose reduction. DATE: April 15, 2019. COMPARISON: CT chest abdomen and pelvis February 16, 2017. INDICATION: 68-year-old female, abdominal pain. FINDINGS: There is a 3 mm noncalcified right lower lobe pulmonary nodule on axial image 3. This is stable since at least December 2015 consistent with benign etiology. There are dependent linear opacities on the right lower lobe and left lower lobe likely relating to atelectasis. There is a 3 mm left lower lobe pulmonary nodule on axial image 9 which is also stable for greater than 2 years consistent with benign etiology. The heart is not enlarged. There is no pericardial effusion. The liver is normal in size and contour. There is no identified liver lesion. The main, right, and left portal veins are patent. The patient is status post cholecystectomy. There is no biliary ductal dilation. The main pancreatic duct is not abnormally dilated. Unremarkable appearance of the pancreatic parenchyma. The spleen is normal in size. The adrenal glands are unremarkable. Unremarkable appearance of the renal parenchyma. The urinary collecting systems are not distended. There is no identified renal or ureteral stone. There is nonspecific henna mesenteric stranding. The uterus is not seen and may be surgically absent. The intestinal tract is not distended. The appendix is not well seen. There are no secondary findings to specifically suggest acute appendicitis. There is no free intraperitoneal air. There is no drainable fluid collection. There is no free pelvic fluid. There are atherosclerotic calcifications. There is no identified abnormally enlarged lymph node in the abdomen or pelvis which meets CT size criteria for adenopathy. There are several small sclerotic lesions of the pelvis with unchanged appearance since January 14, 2016. These likely relate to multiple small benign bone islands. There are degenerative changes of the spine. There is no identified acute bony abnormality. IMPRESSION: CT ABDOMEN AND PELVIS. 1. No identified acute abnormality in the abdomen or pelvis. 2. Nonspecific henna mesenteric stranding. 3. Benign subcentimeter right lower lobe and left lower lobe pulmonary nodules. Dictated by: Dictated on workstation # [id number]
[2019-04-15] MEDS ORDERED: PROMETHAZINE 25 MG (PHENERGAN) TAB PO ONE (22:00)
--- NOTE | 2019-04-15 22:08 | NUR ---
Contacted [facility] ([facility]) to request pt transfer back to facility.
[2019-04-15 22:33] VITALS: BP 126/76
== END 2019-04-15 22:33 | disposition home or self-care (01) ==
LOC: EDUNIT# 18:22 → ER 18:23
DX: K52.9 Noninfective gastroenteritis and colitis, unspecified (principal); J44.9 Chronic obstructive pulmonary disease, unspecified; I10 Essential (primary) hypertension; E11.40 Type 2 diabetes mellitus with diabetic neuropathy, unspecified; E78.00 Pure hypercholesterolemia, unspecified; F41.9 Anxiety disorder, unspecified; F32.9 Major depressive disorder, single episode, unspecified; I25.10 Atherosclerotic heart disease of native coronary artery without angina pectoris; I48.91 Unspecified atrial fibrillation; K21.9 Gastro-esophageal reflux disease without esophagitis; K58.9 Irritable bowel syndrome, unspecified; M79.7 Fibromyalgia; E03.9 Hypothyroidism, unspecified; G47.30 Sleep apnea, unspecified; D64.9 Anemia, unspecified; Z99.89 Dependence on other enabling machines and devices; Z87.440 Personal history of urinary (tract) infections; Z90.49 Acquired absence of other specified parts of digestive tract; Z90.710 Acquired absence of both cervix and uterus; Z90.89 Acquired absence of other organs; Z88.0 Allergy status to penicillin; Z88.2 Allergy status to sulfonamides; Z88.7 Allergy status to serum and vaccine; Z88.5 Allergy status to narcotic agent; Z79.01 Long term (current) use of anticoagulants; Z79.4 Long term (current) use of insulin; Z82.49 Family history of ischemic heart disease and other diseases of the circulatory system
CPT/HCPCS: 36415; 74177; 80053; 81000; 83690; 85025; 86141; 96361; 96374; 96375; 96376

== ENCOUNTER → 2019-05-24 | Outpatient (CLI) | payer MEDICARE ==
--- NOTE | 2019-05-24 15:20 | Diagnostic Imaging Report ---
INDICATION: Right foot and ankle swelling. TIME OF EXAM: 3:03 p.m. FINDINGS: Three views of the right ankle were obtained. There is generalized soft tissue swelling. Alignment is normal. Ankle mortise is well maintained. Talar dome is smooth. No fracture or dislocation of the ankle is identified. There appears to be volume loss within the navicular. There is a large plantar calcaneal spur. IMPRESSION: Soft tissue swelling. No acute ankle fracture is identified. There does appear to be some volume loss in the navicular bone versus fracture. Dictated by: Dictated on workstation # [id number]
--- NOTE | 2019-05-24 15:22 | Diagnostic Imaging Report ---
INDICATION: Right foot and ankle swelling. TIME OF EXAM: 3:06 p.m. FINDINGS: Three views of the right foot were obtained. Metatarsals are intact. Phalanges are intact. There appears to be some volume loss and probable fracture involving the navicular bone. Hindfoot is unremarkable apart from a plantar calcaneal spur. IMPRESSION: Findings suggestive of volume loss and fracture of the navicular. CT through the right foot may be useful for further evaluation. Dictated by: Dictated on workstation # [id number]
== END ==
LOC: RAD 14:18
PROVIDERS: ATTEND Nurse Practitioner Family
DX: M79.89 Other specified soft tissue disorders (principal); M25.471 Effusion, right ankle
CPT/HCPCS: 73610; 73630

== ENCOUNTER → 2019-07-15 | Outpatient (CLI) | payer MEDICARE ==
[~2019-07-15] MED LIST changes: -DIGO125T PO; +DIGO125T3 PO; +DILT240C35 PO; -DILT240C9 PO; -METO-395 PO; -MONT10TA24 PO; +MONT10TA26 PO; +MTP100TCR PO; -OMEP20CA13 PO; +OMEP20CA18 PO; +ONDA-105 PO; -ONDA4TAB10 PO; -ROPI1TAB2 PO; -ROPI2TAB4 PO; +ROPI2TAB6 PO
--- NOTE | 2019-07-15 14:29 | Diagnostic Imaging Report ---
PROCEDURE: CT right lower extremity without contrast. TECHNIQUE: Axially acquired CT was obtained through the right lower extremity without intravenous contrast. Coronal and sagittal reformations were also performed. Auto Exposure Controls were utilized during the CT exam to meet ALARA standards for radiation dose reduction. INDICATION: History of navicular fracture with pain and swelling. Cannot bear weight. COMPARISON: Radiographs from 05/24/2019. FINDINGS: There is a markedly comminuted old fracture of the navicular with significant displacement and fragmentation, and distraction of the fragments with near pseudoarticulation of the talus with the cuneiforms. There is a comminuted fracture of the proximal cuboid. There appears to be an avulsion fracture at the dorsal aspect of the intermediate cuneiform, which may be chronic. There is an avulsion fracture at the calcaneal tuberosity at the attachment of the Achilles tendon, which appears displaced approximately 1.7 cm superiorly. There is moderate generalized muscular atrophy. There is moderate dorsal soft tissue edema. There is a sclerotic lesion in the posterior calcaneus, which measures 1 cm in diameter, and is nonspecific. IMPRESSION: 1. Chronic destruction and fragmentation of the navicular, now with near pseudoarticulation of the talar head with the cuneiforms. 2. Comminuted fracture of the cuboid. Possible dorsal avulsion fracture of the intermediate cuneiform. 3. Avulsion fracture of the calcaneal insertion of the Achilles tendon. 4. 1 cm sclerotic lesion in the calcaneus. This is nonspecific, although metastasis is not excluded. Recommend correlation with patient history, and if high risk for malignancy then MRI could be considered, although biopsy may ultimately be needed. If the patient is low risk, follow-up with radiographs could be considered. Dictated by: Dictated on workstation # [id number]
== END ==
LOC: RAD 13:09
PROVIDERS: ATTEND Podiatrist Foot & Ankle Surgery
DX: S92.211A Displaced fracture of cuboid bone of right foot, initial encounter for closed fracture (principal); S92.251D Displaced fracture of navicular [scaphoid] of right foot, subsequent encounter for fracture with routine healing; M89.9 Disorder of bone, unspecified
CPT/HCPCS: 73700

== ENCOUNTER → 2019-12-12 | Outpatient (CLI) | payer MEDICARE ==
[~2019-12-12] MED LIST changes: +ACHYD1T PO; -HYDR-3820 PO
== END ==
LOC: LABNPT 08:31
PROVIDERS: ATTEND Otolaryngology Otolaryngology/Facial Plastic Surgery
DX: Z20.828 Contact with and (suspected) exposure to other viral communicable diseases (principal)
CPT/HCPCS: 87635

== ENCOUNTER 2019-12-24 19:49 | Outpatient (CLI) | payer MEDICARE | END 2019-12-25 06:00 | disposition home or self-care (01) | LOC: SLEEP 19:49 | PROVIDERS: ATTEND Otolaryngology Otolaryngology/Facial Plastic Surgery | DX: G47.33 Obstructive sleep apnea (adult) (pediatric) (principal); R06.83 Snoring | CPT/HCPCS: 95810 ==

== ENCOUNTER → 2020-01-02 | Outpatient (CLI) | payer MEDICARE ==
[~2020-01-02] MED LIST changes: +CATHETER FLUSH 10 ML SYR IV PRN; +HOLD METFORMIN - RECEIVED CONTRAST 20 ML VIAL IV SCH; +IOHEXOL 350 MG/ML 100 ML (OMNIPAQUE 350) VIAL IV ONE; +NS 100 ML (IVPB) BAG IV ONE; +RT-ALBUTEROL SULF 2.5 MG/3 ML PRE-MIX VIAL INH ONE
--- NOTE | 2020-01-02 11:00 | Diagnostic Imaging Report ---
PROCEDURE: CT chest with contrast only. TECHNIQUE: Multiple contiguous axial images were obtained through the chest after administration of intravenous contrast. Auto Exposure Controls were utilized during the CT exam to meet ALARA standards for radiation dose reduction. INDICATION: Chest pain. The previous CTA chest exam of 02/16/2017 failed to show any sign of a pulmonary embolus or of an acute cardiopulmonary abnormality. There was mosaic lung attenuation involving the lung bases. The possibility that this is related to small airway disease and air-trapping was raised. On this exam, the heart size is at the upper limits of normal but stable when compared to the prior study. Coronary artery calcifications are again noted. The aorta is not abnormally dilated and there is no sign of a dissection. There is no defect within the pulmonary arteries to indicate a pulmonary embolus either. The mosaic parenchymal densities seen in the lung bases seen on the prior exam have essentially resolved. There is minimal compressive atelectasis in each lung base. The lungs are generally clear. There is no sign of failure, pneumonia or pleural effusion. There is a 3.8 mm noncalcified nodule in the left lung base. There is also a 4.5 mm nodule in the right lower lobe. These findings were also present on the prior exam and have not changed. Consequently, I suspect they are benign. There is no mediastinal or hilar adenopathy. The thyroid gland is generally unremarkable. The breasts, where visualized show no definite abnormality. There is now a loop recorder device in the subcutaneous tissues of the left breast. The sections through the upper abdomen again show hepatomegaly and fatty metamorphosis of the liver. This appearance is similar to the prior CT abdomen/pelvis exam of 04/15/2019. The spleen is prominent but within normal limits. There is a 1.5 cm slightly radiopaque density within the duodenum. This may be related to ingested medication. The bone windows show no sign of a fracture or of a destructive lesion. IMPRESSION: 1. There is no evidence for an acute cardiopulmonary abnormality. In particular, there is no sign of aortic dissection or a pulmonary embolus. 2. The mosaic lung attenuation involving the lung bases seen on the prior study has essentially resolved. There is no sign of failure, pneumonia or pleural effusion. 3. The small nodules in the lung bases seen previously appears stable. 4. There is now a loop recorder device in place in the soft tissues of the left breast. 5. There is hepatomegaly and fatty metamorphosis. Dictated by: Dictated on workstation # [id number]
== END ==
LOC: RAD 09:00
PROVIDERS: ATTEND Internal Medicine Critical Care Medicine
DX: J45.909 Unspecified asthma, uncomplicated (principal); R91.1 Solitary pulmonary nodule; R16.0 Hepatomegaly, not elsewhere classified; Z95.818 Presence of other cardiac implants and grafts
CPT/HCPCS: 36415; 71260; 82565; 84520; 94060; 94726; 94729

== ENCOUNTER 2020-01-20 09:38 | Outpatient (RCR) | payer MEDICARE ==
[~2020-01-20 09:38] MED LIST changes: -CATHETER FLUSH 10 ML SYR IV PRN; -HOLD METFORMIN - RECEIVED CONTRAST 20 ML VIAL IV SCH; -IOHEXOL 350 MG/ML 100 ML (OMNIPAQUE 350) VIAL IV ONE; -NS 100 ML (IVPB) BAG IV ONE; -RT-ALBUTEROL SULF 2.5 MG/3 ML PRE-MIX VIAL INH ONE
== END 2020-01-22 | disposition home or self-care (01) ==
PROVIDERS: ATTEND Podiatrist Foot & Ankle Surgery
DX: S92.001D Unspecified fracture of right calcaneus, subsequent encounter for fracture with routine healing (principal)

== ENCOUNTER 2020-03-30 10:15 | Outpatient (RCR) | payer MEDICARE ==
[~2020-03-30 10:15] MED LIST changes: +ASPI-1238 PO; -ASPI-983 PO; +DILT-109 PO; -DILT240C35 PO; -MONT10TA26 PO; +MONT10TA97 PO; -OXYC-465 PO; +OXYC-556 PO; -PANT40TA3 PO; +PANT40TA52 PO
[2020-04-01] MEDS ORDERED: LEVO5TAB12 PO (13:43)
[2020-04-01] MEDS ORDERED: ARIP2TAB20 PO (13:43)
[2020-04-01] MEDS ORDERED: FLUT1BLS12 INH (13:43)
[2020-04-01] MEDS ORDERED: ACET325C7 PO (13:43)
[2020-04-01] MEDS ORDERED: LISI2.5T PO (13:43)
[2020-04-01] MEDS ORDERED: MONT10TA97 PO (13:43)
[2020-04-01] MEDS ORDERED: DOCU-143 PO (13:43)
[2020-04-01] MEDS ORDERED: ALBU2.5V4 NEB (13:43)
[2020-04-01] MEDS ORDERED: CHOL500044 PO (13:43)
[2020-04-01] MEDS ORDERED: INSU100I48 SC (13:43)
[2020-04-01] MEDS ORDERED: BUPR300T98 PO (13:43)
[2020-04-01] MEDS ORDERED: AZEL137S11 (13:43)
[2020-04-01] MEDS ORDERED: SODI0.5GEL (13:43)
[2020-04-01] MEDS ORDERED: FAMO40TA6 PO (13:43)
[2020-04-01] MEDS ORDERED: FLUT16SP22 NSEACH (13:43)
[2020-04-01] MEDS ORDERED: CALC-823 PO (13:43)
[2020-04-01] MEDS ORDERED: ALLO100T PO (13:43)
[2020-04-01] MEDS ORDERED: GABA300C PO (13:43)
[2020-04-01] MEDS ORDERED: NYST15PO2 TOP (13:43)
[2020-04-01] MEDS ORDERED: PANT20TA18 PO (13:43)
[2020-04-04] MEDS ORDERED: PROM25AM2 IVP (09:58)
[2020-04-04] MEDS ORDERED: AMIO200T6 PO (09:58)
[2020-04-04] MEDS ORDERED: MTP25TSR PO (09:58)
[2020-04-04] MEDS ORDERED: SUCR1TAB PO (12:45)
== END 2020-05-21 | disposition home or self-care (01) ==
PROVIDERS: ATTEND Nurse Practitioner Family
DX: S92.001A Unspecified fracture of right calcaneus, initial encounter for closed fracture (principal); I10 Essential (primary) hypertension; E11.9 Type 2 diabetes mellitus without complications; E03.9 Hypothyroidism, unspecified; F32.9 Major depressive disorder, single episode, unspecified; Z79.4 Long term (current) use of insulin

== ENCOUNTER 2020-03-31 14:38 | Inpatient (IN) | payer MEDICARE ==
[~2020-03-31] VITALS: Ht 157.4 cm; Wt 91.3 kg
[~2020-03-31 14:38] MED LIST changes: +MONT10TA26 PO; -MONT10TA97 PO
--- NOTE | 2020-03-31 14:38 | NUR ---
Kaela araya in EDM - 03/31/20 at 1645 by [id number] Pt DNR per EMS.
[2020-03-31 15:06] LABS: BASOPHILS % (AUTO) 0 % (0-10); EOSINOPHILS # (AUTO) 0.3 10^3/uL (0.0-0.3); EOSINOPHILS % (AUTO) 3 % (0-10); HEMATOCRIT 37 % (35-52); LYMPHOCYTES # (AUTO) 2.1 10^3/uL (1.0-4.0); LYMPHOCYTES % (AUTO) 19 % (12-44); MEAN CORPUSCULAR HEMOGLOBIN 32 pg (25-34); MEAN CORPUSCULAR HGB CONC 32 g/dL (32-36); MEAN CORPUSCULAR VOLUME 98 fL (80-99); MEAN PLATELET VOLUME 11.3 fL (9.0-12.2); MONOCYTES # (AUTO) 0.7 10^3/uL (0.0-1.0); MONOCYTES % (AUTO) 6 % (0-12); NEUTROPHILS # (AUTO) 7.9 10^3/uL (1.8-7.8); NEUTROPHILS % (AUTO) 71 % (42-75); PLATELET COUNT 254 10^3/uL (130-400)
[2020-03-31 15:12] LABS: INR 1.3 (0.8-1.4); PROTHROMBIN TIME PATIENT 16.8 SEC (12.2-14.7)
--- NOTE | 2020-03-31 15:15 | ED General ---
General Stated Complaint: HERBERTH Source of Information: Patient Exam Limitations: No Limitations History of Present Illness Date Seen by Provider: Mar 31, 2020 Time Seen by Provider: 14:39 Initial Comments Here with acute onset of low BP and low heart rate. Blood pressure in the 60s systolic and heart rate in the 30s systolic per alf. EMS arrival at the facility shows heart rate is in the 30s with blood pressure low 100. Patient has history of atrial fibrillation and is status post ablation. Takes meds as directed per facility. Denies chest pain, nausea, vomiting, breathing problems or other concerns. Does admit to feeling weak. Her ablation was a few years ago and at that time, family reports that they did mention she may need a pacemaker. She has not had trouble since though. Timing/Duration: 1 Hour Severity: Moderate Associated Systoms: No Chest Pain, No Cough, No Fever/Chills, No Nausea/Vomiting; Shortness of Air, Weakness Allergies and Home Medications Allergies Coded Allergies: Penicillins (Verified Allergy, Severe, SWELLING, HIVES, THROAT SWELLED, 01/21/16) PATIENT HAS RECEIVED CEFEPIME WITHOUT ISSUE Sulfa (Sulfonamide Antibiotics) (Verified Allergy, Severe, TONGUE SWELLED, 01/21/16) Tetanus & Diphtheria Tox,Adult (Verified Allergy, Severe, SWELLING OF THROAT, 01/21/16) codeine (Verified Allergy, Unknown, HAS RECEIVED LORTAB IN THE PAST, 01/21/16) egg (Unverified Allergy, Unknown, 06/29/16) FROM UNCODED ALLERGIES Home Medications Alprazolam 0.5 Mg Tablet, 0.5 MG PO BID PRN for ANXIETY, (Reported) Apixaban 5 Mg Tablet, 5 MG PO BID, (Reported) Azithromycin 250 Mg Tablet, 250 MG PO DAILY Prescribed by: DAISY JOHNSON on 07/31/18 0900 Benzonatate 100 Mg Capsule, 200 MG PO TID PRN for COUGH, (Reported) Cefdinir 300 Mg Capsule, 300 MG PO BID Prescribed by: DAISY JOHNSON on 07/31/18 0900 Colestipol HCl 1 Gm Tablet, 1 GM PO BID, (Reported) Cyclobenzaprine HCl 10 Mg Tablet, 10 MG PO Q8H PRN for MUSCLE SPASMS, (Reported) Digoxin 125 Mcg Tablet, 125 MCG PO DAILY, (Reported) Diltiazem HCl 240 Mg Cap.er.24h, 240 MG PO DAILY, (Reported) Duloxetine HCl 60 Mg Capsule.dr, 60 MG PO DAILY, (Reported) TAKES ALONG WITH 30MG CAPSULES FOR A TOTAL DAILY DOSE OF 90MG Duloxetine HCl 30 Mg Capsule.dr, 30 MG PO DAILY, (Reported) TAKES ALONG WITH 60MG CAPSULE FOR A TOTAL DAILY DOSE OF 90MG Ferrous Sulfate 325 Mg Tablet, 325 MG PO DAILY, (Reported) Flecainide Acetate 100 Mg Tablet, 100 MG PO BID, (Reported) Furosemide 40 Mg Tablet, 40 MG PO 0800,1100, (Reported) Gabapentin 600 Mg Tablet, 600 MG PO TID Prescribed by: DAISY JOHNSON on 07/31/18 0900 Hyoscyamine Sulfate 0.125 Mg Tablet, 0.125 MG PO TID PRN for SECRETIONS, (Reported) Insulin Aspart 300 Units/3 Ml Solution, 14 UNITS SQ AC, (Reported) Insulin Aspart 300 Units/3 Ml Solution, SQ AC, (Reported) 150-200 = 1 UNIT 201-250 = 2 UNITS 251-300 = 3 UNITS 301-350 = 4 UNITS 351- 400 = 5 UNITS 400+ 6 UNITS Insulin Glargine,Hum.rec.anlog 300 Unit/1 Ml Insuln.pen, 40 UNIT SQ BID, (Reported) Levalbuterol HCl 1.25 Mg/3 Ml Vial.neb, 1.25 MG NEB Q6H PRN for SHORTNESS OF BREATH, (Reported) Metoprolol Succinate 100 Mg Tab.er.24h, 100 MG PO BID, (Reported) Ondansetron HCl 4 Mg Tab, 4 MG PO Q4H PRN for NAUSEA/VOMITING-1ST LINE, (Reported) Oxycodone HCl/Acetaminophen 1 Each Tablet, 1-2 TAB PO QID PRN for PAIN-MODERATE, (Reported) Pantoprazole Sodium 40 Mg Tablet.dr, 40 MG PO DAILY, (Reported) Potassium Chloride 20 Meq Tablet.er, 20 MEQ PO DAILY, (Reported) Promethazine HCl 25 Mg Tablet, 25 MG PO Q8H PRN for NAUSEA/VOMITING-2ND LINE Prescribed by: DAISY JOHNSON on 07/31/18 0900 Ropinirole HCl 1 Mg Tablet, 1 MG PO BID, (Reported) Patient Home Medication List Home Medication List Reviewed: Yes Review of Systems Review of Systems Constitutional: see HPI; No chills, No fever EENTM: no symptoms reported Respiratory: No cough; short of breath Cardiovascular: No chest pain; Hx of Intervention Gastrointestinal: No abdominal pain, No nausea, No vomiting Genitourinary: no symptoms reported Musculoskeletal: No joint pain, No muscle pain Skin: no symptoms reported Psychiatric/Neurological: Denies Headache; Weakness Hematologic/Lymphatic: No Symptoms Reported All Other Systems Reviewed Negative Unless Noted: Yes Past Fflnywb-Nczvdr-Dfrpjf Hx Past Med/Social Hx: Reviewed Nursing Past Med/Soc Hx Patient Social History Alcohol Use: Denies Use Recreational Drug Use: No 2nd Hand Smoke Exposure: Yes (DAD WAS HEAVY SMOKER) Recent Foreign Travel: No Contact w/Someone Who Travel: No Recent Hopitalizations: No Immunizations Up To Date Tetanus Booster (TDap): Unknown PED Vaccines UTD: Yes Date of Pneumonia Vaccine: Jan 31, 2012 Seasonal Allergies Seasonal Allergies: Yes Past Medical History Surgeries: Yes (KNEE SCOPES X3 - D&C'S; CARDIAC ABLATION FOR A. 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, Menopausal Sexually Transmitted Disease: No HIV/AIDS: No Genitourinary: Yes UTI-Chronic Gastrointestinal: Yes Colitis, Gastroesophageal Reflux, Diverticulosis, Irritable Bowel Musculoskeletal: Yes (CHRONIC BACK PAIN AND SCIATICA; CHRONIC NECK AND SHOULDER PAIN ) Arthritis, Fibromyalgia, Chronic Back Pain Endocrine: Yes (OBESITY) Diabetes, Insulin dep, Hypothyroidsim HEENT: Yes Tonsilitis Loss of Vision: Denies Hearing Impairment: Denies Cancer: No Psychosocial: Yes Anxiety, Depression Integumentary: No Blood Disorders: Yes (CHRONIC ANEMIA) Adverse Reaction/Blood Tranf: No Family Medical History Reviewed Nursing Family Hx Cardiovascular disease 19 FATHER 19 MOTHER Diabetes mellitus 19 MOTHER Irritable bowel syndrome G8 BROTHER Myocardial infarction 19 FATHER 19 MOTHER TIAs 19 MOTHER Heart Disease, Diabetes, GI Disease, Hypertension, Stroke Physical Exam Vital Signs Vital Signs - First Documented Capillary Refill : Height, Weight, BMI Height: 5'5.00" Weight: 225lbs. 0.0oz. 102.970413zd; 36.00 BMI Method:Estimated General Appearance: No Apparent Distress, WD/WN HEENT: PERRL/EOMI, Pharynx Normal Neck: Non Tender, Supple Respiratory: No Accessory Muscle Use, Wheezing (Trace expiratory bilateral) Cardiovascular: No Murmur, Bradycardia, Irregularly Irregular Gastrointestinal: Non Tender, Soft Back: Normal Inspection, No CVA Tenderness, No Vertebral Tenderness Extremity: Normal Range of Motion, Non Tender Neurologic/Psychiatric: Alert, Oriented x3 Skin: Normal Color, Warm/Dry Progress/Results/Core Measures Suspected Sepsis SIRS Temperature: Pulse: Respiratory Rate: Laboratory Tests 03/31/20 14:45: White Blood Count 11.0 Blood Pressure / Mean: Laboratory Tests 03/31/20 14:45: Creatinine 2.08H, INR Comment 1.3, Platelet Count 254, Total Bilirubin 0.3 Results/Orders Lab Results Laboratory Tests Test 03/31/20 14:45 Range/Units White Blood Count 11.0 4.3-11.0 10^3/uL Red Blood Count 3.81 3.80-5.11 10^6/uL Hemoglobin 12.0 11.5-16.0 g/dL Hematocrit 37 35-52 % Mean Corpuscular Volume 98 80-99 fL Mean Corpuscular Hemoglobin 32 25-34 pg Mean Corpuscular Hemoglobin Concent 32 32-36 g/dL Red Cell Distribution Width 14.0 10.0-14.5 % Platelet Count 254 130-400 10^3/uL Mean Platelet Volume 11.3 9.0-12.2 fL Immature Granulocyte % (Auto) 1 % Neutrophils (%) (Auto) 71 42-75 % Lymphocytes (%) (Auto) 19 12-44 % Monocytes (%) (Auto) 6 0-12 % Eosinophils (%) (Auto) 3 0-10 % Basophils (%) (Auto) 0 0-10 % Neutrophils # (Auto) 7.9 H 1.8-7.8 10^3/uL Lymphocytes # (Auto) 2.1 1.0-4.0 10^3/uL Monocytes # (Auto) 0.7 0.0-1.0 10^3/uL Eosinophils # (Auto) 0.3 0.0-0.3 10^3/uL Basophils # (Auto) 0.0 0.0-0.1 10^3/uL Immature Granulocyte # (Auto) 0.1 0.0-0.1 10^3/uL Prothrombin Time 16.8 H 12.2-14.7 SEC INR Comment 1.3 0.8-1.4 Activated Partial Thromboplast Time 35 24-35 SEC Sodium Level 135 135-145 MMOL/L Potassium Level 5.2 H 3.6-5.0 MMOL/L Chloride Level 98 98-107 MMOL/L Carbon Dioxide Level 27 21-32 MMOL/L Anion Gap 10 5-14 MMOL/L Blood Urea Nitrogen 36 H 7-18 MG/DL Creatinine 2.08 H 0.60-1.30 MG/DL Estimat Glomerular Filtration Rate 24 BUN/Creatinine Ratio 17 Glucose Level 188 H 70-105 MG/DL Calcium Level 8.6 8.5-10.1 MG/DL Corrected Calcium 8.6 8.5-10.1 MG/DL Magnesium Level 2.3 1.6-2.4 MG/DL Total Bilirubin 0.3 0.1-1.0 MG/DL Aspartate Amino Transf (AST/SGOT) 35 H 5-34 U/L Alanine Aminotransferase (ALT/SGPT) 35 0-55 U/L Alkaline Phosphatase 106 40-136 U/L Myoglobin 134.7 H 10.0-92.0 NG/ML Troponin I < 0.028 <0.028 NG/ML B-Type Natriuretic Peptide 68.6 <100.0 PG/ML Total Protein 6.7 6.4-8.2 GM/DL Albumin 4.0 3.2-4.5 GM/DL Digoxin Level 1.38 0.80-2.00 NG/ML My Orders Orders - LOUIE WHALEN MD Cbc With Automated Diff (03/31/20 14:58) Magnesium (03/31/20 14:58) Chest 1 View, Ap/Pa Only (03/31/20 14:58) Ekg Tracing (03/31/20 14:58) Comprehensive Metabolic Panel (03/31/20 14:58) Myoglobin Serum (03/31/20 14:58) Protime With Inr (03/31/20 14:58) Partial Thromboplastin Time (03/31/20 14:58) O2 (03/31/20 14:58) Monitor-Rhythm Ecg Trace Only (03/31/20 14:58) Lipid Panel (04/01/20 06:00) Ed Iv/Invasive Line Start (03/31/20 14:58) BNP (03/31/20 14:58) Troponin I (03/31/20 14:58) Digoxin (03/31/20 15:41) Atropine Inj 10 Mg Syringe (Atropine In (03/31/20 16:00) Enoxaparin Injection (Lovenox Injection) (03/31/20 17:00) Medications Given in ED Current Medications Medications Dose Ordered Sig/Jorge Route Start Time Stop Time Status Last Admin Dose Admin Atropine Sulfate 0.5 mg ONCE ONCE IV 03/31/20 16:00 03/31/20 16:01 DC 03/31/20 16:07 0.5 MG Vital Signs/I&O 03/31/20 03/31/20 14:38 14:38 Temp 36.0 Pulse 41 Resp 15 B/P (MAP) 123/62 (82) Pulse Ox 94 O2 Delivery Nasal Cannula Nasal Cannula O2 Flow Rate 2.00 2.00 Capillary Refill : Progress Note : Progress Note Seen and evaluated on arrival by EMS. IV, labs, EKG and chest x-ray ordered. We will continue fluids as initiated by EMS. Monitor patient. 1603: I have discussed the case with Dr. Allred. We did discuss options currently. I have added digoxin level. We will continue fluid and try small dose of atropine. 1615: Atropine 1.5 mg IV given and this did increase her rate slightly into the 40s. Blood pressures in the low 100s. We will hold her rate control medications and patient will likely need pacemaker. We have applied external pacing pads if needed. All the findings and concerns were discussed with the patient who agrees with the plan. Patient to be admitted to ICU for symptomatic bradycardia and acute renal insufficiency. 1640: I did discuss the case with Dr. JOHNSON and she accepts patient for admission, inpatient status to the ICU. Dr. Dyer will see the patient in the morning. We will hold Eliquis tonight as well but give 1 dose of Lovenox and Dr. Carrizales can decide on further anticoagulation tomorrow pending pacemaker placement. Family updated. ECG Initial ECG Impression Date: Mar 31, 2020 Initial ECG Impression Time: 14:56 Initial ECG Rate: 31 Initial ECG Comparisson: Changed Comment Supraventricular bigeminy/atrial fibrillation with rate bradycardic and leftward axis. No evidence of ST elevation VA. Change from previous of 03/26/2019 due to rate. Interpreted by me. Diagnostic Imaging Diagonstic Imaging: Xray Plain Films/CT/US/NM/MRI: chest Comments NAME: [facility]USTINO [facility] REC#: [id number] PT STATUS: REG ER : 1950 PHYSICIAN: LOUIE WHALEN MD ADMIT DATE: 03/31/20/ER Draft Date of Exam:03/31/20 CHEST 1 VIEW, AP/PA ONLY INDICATION: Bradycardia and chest pain. TECHNIQUE: Frontal chest obtained at 03:35 p.m. and compared to 03/26/2019. FINDINGS: Heart is mildly enlarged. There is mild central vascular prominence. There is no focal infiltrate or pneumothorax or pleural fluid. IMPRESSION: Cardiomegaly and mild central vascular prominence. No focal infiltrate or pneumothorax or pleural fluid. Dictated on workstation # [id number] Dict: 03/31/20 1534 Trans: 03/31/20 1538 [id number] Interpreted by: VIRA ONEIL MD Electronically signed by: Departure Communication (Admissions) Time/Spoke to Admitting Phy: 16:40 Time/Spoke to Consulting Phy: 16:02 Impression Primary Impression: Symptomatic bradycardia Additional Impression: Acute renal insufficiency Disposition: ADMITTED INPATIENT Condition: Critical Admissions Decision to Admit Reason: Admit from ER (General) Decision to Admit/Date: Mar 31, 2020 Time/Decision to Admit Time: 16:02 Departure-Patient Inst. Referrals: KEILA WONG DPM (PCP/Family) Primary Care Physician LOUIE WHALEN MD Mar 31, 2020 15:15
[2020-03-31 15:21] LABS: BILIRUBIN,TOTAL 0.3 MG/DL (0.1-1.0); CALCIUM 8.6 MG/DL (8.5-10.1); CREATININE SERUM 2.08 MG/DL (0.60-1.30); MAGNESIUM 2.3 MG/DL (1.6-2.4); POTASSIUM 5.2 MMOL/L (3.6-5.0); TOTAL PROTEIN 6.7 GM/DL (6.4-8.2)
--- NOTE | 2020-03-31 15:38 | Diagnostic Imaging Report ---
INDICATION: Bradycardia and chest pain. TECHNIQUE: Frontal chest obtained at 03:35 p.m. and compared to 03/26/2019. FINDINGS: Heart is mildly enlarged. There is mild central vascular prominence. There is no focal infiltrate or pneumothorax or pleural fluid. IMPRESSION: Cardiomegaly and mild central vascular prominence. No focal infiltrate or pneumothorax or pleural fluid. Dictated by: Dictated on workstation # [id number]
[2020-03-31] MEDS ORDERED: ATROPINE INJECTION 1 MG/10 ML SYR (ABBOTT) IV ONE (16:00)
--- NOTE | 2020-03-31 16:08 | NUR ---
After 0.5 mg of Atropine, pt's pulse increased to 46 bpm.
--- NOTE | 2020-03-31 16:09 | NUR ---
Another 0.5 mg atropine administered by Juan Francisco Amaya.
--- NOTE | 2020-03-31 16:46 | NUR ---
Confirmed with Tu from [facility] that pt is a FULL CODE.
[2020-03-31] MEDS ORDERED: ENOXAPARIN 100 MG/1 ML (LOVENOX) SYR SC ONE (17:00)
[2020-03-31] MEDS ORDERED: NS IV 1000 ML 1,000 ML ONE (17:14)
[2020-03-31] MEDS ORDERED: DOPamine DRIP 250 ML IV ONE (21:34)
[2020-03-31] MEDS: DOPamine DRIP 250 ML IV SCH (21:41)
[2020-04-01] MEDS: inSUlin ASPART (NovoLOG) 1 UNIT/0.01 ML (CHARGE PER UNIT) SC SCH ×5 (00:56→21:10)
--- NOTE | 2020-04-01 03:20 | Pulmonary Consultation ---
ANDRÉSRUSTAM MED STUDENT 04/01/20 0320: History of Present Illness History of Present Illness Date Seen by Provider: Apr 01, 2020 Time Seen by Provider: 03:45 Date of Admission History of Present Illness CC: Consulted for Bradycardia and acute renal insufficiency HPI: 69 y/o female with hx of afib and and s/p ablation "a few years ago" presents from snf with bradycardia and low blood pressure onset this evening. Per snf, patient exhibited BP around 60s/30s, EMS arrival at about 1430 showed HR in 30s and BP in low 100s. Patient denied CP or SOB on arrival, Brigida consulted, 1.5 mg atropine given IV which raised heart rate to 40s. Patient now admitted to inpatient ICU waiting for pacemaker placement. Dr. Dyer will evaluate this AM and decide next steps and coagulation pending pacemaker placement. Currently denies CP, palpitations, SOB, cough, abdominal pain, vomiting ot any other current complaints. Allergies and Home Medications Allergies Coded Allergies: Penicillins (Verified Allergy, Severe, SWELLING, HIVES, THROAT SWELLED, 01/21/16) PATIENT HAS RECEIVED CEFEPIME WITHOUT ISSUE Sulfa (Sulfonamide Antibiotics) (Verified Allergy, Severe, TONGUE SWELLED, 01/21/16) Tetanus & Diphtheria Tox,Adult (Verified Allergy, Severe, SWELLING OF THROAT, 01/21/16) codeine (Verified Allergy, Unknown, HAS RECEIVED LORTAB IN THE PAST, 01/21/16) egg (Unverified Allergy, Unknown, 06/29/16) FROM UNCODED ALLERGIES Home Medications Alprazolam 0.5 Mg Tablet, 0.5 MG PO BID PRN for ANXIETY, (Reported) Apixaban 5 Mg Tablet, 5 MG PO BID, (Reported) Azithromycin 250 Mg Tablet, 250 MG PO DAILY Prescribed by: DAISY JOHNSON on 07/31/18 0900 Benzonatate 100 Mg Capsule, 200 MG PO TID PRN for COUGH, (Reported) Cefdinir 300 Mg Capsule, 300 MG PO BID Prescribed by: DAISY JOHNSON on 07/31/18 0900 Colestipol HCl 1 Gm Tablet, 1 GM PO BID, (Reported) Cyclobenzaprine HCl 10 Mg Tablet, 10 MG PO Q8H PRN for MUSCLE SPASMS, (Reported) Digoxin 125 Mcg Tablet, 125 MCG PO DAILY, (Reported) Diltiazem HCl 240 Mg Cap.er.24h, 240 MG PO DAILY, (Reported) Duloxetine HCl 60 Mg Capsule.dr, 60 MG PO DAILY, (Reported) TAKES ALONG WITH 30MG CAPSULES FOR A TOTAL DAILY DOSE OF 90MG Duloxetine HCl 30 Mg Capsule.dr, 30 MG PO DAILY, (Reported) TAKES ALONG WITH 60MG CAPSULE FOR A TOTAL DAILY DOSE OF 90MG Ferrous Sulfate 325 Mg Tablet, 325 MG PO DAILY, (Reported) Flecainide Acetate 100 Mg Tablet, 100 MG PO BID, (Reported) Furosemide 40 Mg Tablet, 40 MG PO 0800,1100, (Reported) Gabapentin 600 Mg Tablet, 600 MG PO TID Prescribed by: DAISY JOHNSON on 07/31/18 0900 Hyoscyamine Sulfate 0.125 Mg Tablet, 0.125 MG PO TID PRN for SECRETIONS, (Reported) Insulin Aspart 300 Units/3 Ml Solution, 14 UNITS SQ AC, (Reported) Insulin Aspart 300 Units/3 Ml Solution, SQ AC, (Reported) 150-200 = 1 UNIT 201-250 = 2 UNITS 251-300 = 3 UNITS 301-350 = 4 UNITS 351- 400 = 5 UNITS 400+ 6 UNITS Insulin Glargine,Hum.rec.anlog 300 Unit/1 Ml Insuln.pen, 40 UNIT SQ BID, (Reported) Levalbuterol HCl 1.25 Mg/3 Ml Vial.neb, 1.25 MG NEB Q6H PRN for SHORTNESS OF BREATH, (Reported) Metoprolol Succinate 100 Mg Tab.er.24h, 100 MG PO BID, (Reported) Ondansetron HCl 4 Mg Tab, 4 MG PO Q4H PRN for NAUSEA/VOMITING-1ST LINE, (Reported) Oxycodone HCl/Acetaminophen 1 Each Tablet, 1-2 TAB PO QID PRN for PAIN-MODERATE, (Reported) Pantoprazole Sodium 40 Mg Tablet.dr, 40 MG PO DAILY, (Reported) Potassium Chloride 20 Meq Tablet.er, 20 MEQ PO DAILY, (Reported) Promethazine HCl 25 Mg Tablet, 25 MG PO Q8H PRN for NAUSEA/VOMITING-2ND LINE Prescribed by: DAISY JOHNSON on 07/31/18 0900 Ropinirole HCl 1 Mg Tablet, 1 MG PO BID, (Reported) Past Txfmosp-Onnfik-Bcvonm Hx Past Med/Social Hx: Reviewed Nursing Past Med/Soc Hx Patient Social History Alcohol Use: Denies Use Recreational Drug Use: No 2nd Hand Smoke Exposure: Yes (DAD WAS HEAVY SMOKER) Recent Foreign Travel: No Contact w/Someone Who Travel: No Recent Infectious Disease Expo: No Recent Hopitalizations: No Immunizations Up To Date Tetanus Booster (TDap): Unknown PED Vaccines UTD: Yes Date of Pneumonia Vaccine: Mar 31, 2017 Seasonal Allergies Seasonal Allergies: Yes Past Medical History Surgeries: Yes (KNEE SCOPES X3 - D&C'S; CARDIAC ABLATION FOR A. 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, Menopausal Sexually Transmitted Disease: No HIV/AIDS: No Genitourinary: Yes UTI-Chronic Gastrointestinal: Yes Colitis, Gastroesophageal Reflux, Diverticulosis, Irritable Bowel Musculoskeletal: Yes (CHRONIC BACK PAIN AND SCIATICA; CHRONIC NECK AND SHOULDER PAIN ) Arthritis, Fibromyalgia, Chronic Back Pain Endocrine: Yes (OBESITY) Diabetes, Insulin dep, Hypothyroidsim HEENT: Yes Tonsilitis Loss of Vision: Denies Hearing Impairment: Denies Cancer: No Psychosocial: Yes Anxiety, Depression Integumentary: No Blood Disorders: Yes (CHRONIC ANEMIA) Adverse Reaction/Blood Tranf: No Family Medical History Reviewed Nursing Family Hx Cardiovascular disease 19 FATHER 19 MOTHER Diabetes mellitus 19 MOTHER Irritable bowel syndrome G8 BROTHER Myocardial infarction 19 FATHER 19 MOTHER TIAs 19 MOTHER Heart Disease, Diabetes, GI Disease, Hypertension, Stroke Review of Systems Constitutional: No: Fever, Chills Eyes: No: Conjunctivae inflammation, Eyelid inflammation ENT: Nose discharge (mild, said resolved last night); No: Nose pain Respiratory: No: Cough, Shortness of breath Cardiovascular: No: Chest Pain, Palpitations Gastrointestinal: No: Vomiting, Abdominal Pain Genitourinary: No Dysuria, No Hematuria Musculoskeletal: No: leg pain, foot pain Skin: No: Rash, Jaundice Neurological: No: Change in speech, Confusion Sepsis Event Evaluation Height, Weight, BMI Height: 5'5.00" Weight: 225lbs. 0.0oz. 102.662450sm; 37.00 BMI Method:Estimated Exam Exam Vital Signs Date Time Temp Pulse Resp B/P (MAP) Pulse Ox O2 Delivery O2 Flow Rate FiO2 04/01/20 01:00 53 04/01/20 00:00 Nasal Cannula 2.00 04/01/20 00:00 36.2 03/31/20 22:00 Nasal Cannula 2.00 03/31/20 21:41 39 91/44 03/31/20 20:50 36.0 03/31/20 20:03 42 03/31/20 19:30 36.0 39 15 91/44 (82) 94 Nasal Cannula 2.00 03/31/20 14:38 Nasal Cannula 2.00 03/31/20 14:38 36.0 41 15 123/62 (82) 94 Nasal Cannula 2.00 I & O 04/01/20 07:00 Intake Total 300 ml Output Total 600 ml Balance -300 ml Height & Weight Height: 5'5.00" Weight: 225lbs. 0.0oz. 102.720001rg; 37.00 BMI Method:Estimated General Appearance: No Apparent Distress, WD/WN HEENT: Pharynx Normal; No Scleral Icterus (L), No Scleral Icterus (R) Neck: Normal Inspection, Non Tender; No Carotid Bruit Respiratory: Chest Non Tender, Normal Breath Sounds, No Accessory Muscle Use, No Respiratory Distress, Wheezing (Trace expiratory bilateral) Cardiovascular: No Murmur, Normal Peripheral Pulses, Bradycardia Capillary Refill: Less Than 3 Seconds Peripheral Pulses: 2+ Dorsalis Pedis (R), 2+ Left Dors-Pedis (L), 2+ Radial Pulses (R), 2+ Radial Pulses (L) Gastrointestinal: non tender, soft, no organomegaly, no pulsatile mass Extremity: Normal Range of Motion, Non Tender, No Calf Tenderness, Pedal Edema (mild, 1+ pitting) Neurologic/Psychiatric: Alert, Oriented x3, Normal Mood/Affect Skin: Normal Color, Warm/Dry Results Lab Laboratory Tests 03/31/20 14:45 Assessment/Plan Assessment/Plan Bradycardia -Cardiology consulted, -1.5mg Atropine ordered with some response -Dr. Dyer to evaluate this AM Acute renal insufficiency -1L NS ordered, will add LR -monitor labs Hyperglycemia -IV Insulin Aspart ordered JAZMINLOGAN Robert MAO 04/01/20 0426: Allergies and Home Medications Allergies Coded Allergies: Penicillins (Verified Allergy, Severe, SWELLING, HIVES, THROAT SWELLED, 01/21/16) PATIENT HAS RECEIVED CEFEPIME WITHOUT ISSUE Sulfa (Sulfonamide Antibiotics) (Verified Allergy, Severe, TONGUE SWELLED, 01/21/16) Tetanus & Diphtheria Tox,Adult (Verified Allergy, Severe, SWELLING OF THROAT, 01/21/16) codeine (Verified Allergy, Unknown, HAS RECEIVED LORTAB IN THE PAST, 01/20) egg (Unverified Allergy, Unknown, 06/29/16) FROM UNCODED ALLERGIES Home Medications Alprazolam 0.5 Mg Tablet, 0.5 MG PO BID PRN for ANXIETY, (Reported) Apixaban 5 Mg Tablet, 5 MG PO BID, (Reported) Azithromycin 250 Mg Tablet, 250 MG PO DAILY Prescribed by: DAISY JOHNSON on 07/31/18 0900 Benzonatate 100 Mg Capsule, 200 MG PO TID PRN for COUGH, (Reported) Cefdinir 300 Mg Capsule, 300 MG PO BID Prescribed by: DAISY JOHNSON on 07/31/18 0900 Colestipol HCl 1 Gm Tablet, 1 GM PO BID, (Reported) Cyclobenzaprine HCl 10 Mg Tablet, 10 MG PO Q8H PRN for MUSCLE SPASMS, (Reported) Digoxin 125 Mcg Tablet, 125 MCG PO DAILY, (Reported) Diltiazem HCl 240 Mg Cap.er.24h, 240 MG PO DAILY, (Reported) Duloxetine HCl 60 Mg Capsule.dr, 60 MG PO DAILY, (Reported) TAKES ALONG WITH 30MG CAPSULES FOR A TOTAL DAILY DOSE OF 90MG Duloxetine HCl 30 Mg Capsule.dr, 30 MG PO DAILY, (Reported) TAKES ALONG WITH 60MG CAPSULE FOR A TOTAL DAILY DOSE OF 90MG Ferrous Sulfate 325 Mg Tablet, 325 MG PO DAILY, (Reported) Flecainide Acetate 100 Mg Tablet, 100 MG PO BID, (Reported) Furosemide 40 Mg Tablet, 40 MG PO 0800,1100, (Reported) Gabapentin 600 Mg Tablet, 600 MG PO TID Prescribed by: DAISY JOHNSON on 07/31/18 0900 Hyoscyamine Sulfate 0.125 Mg Tablet, 0.125 MG PO TID PRN for SECRETIONS, (Reported) Insulin Aspart 300 Units/3 Ml Solution, 14 UNITS SQ AC, (Reported) Insulin Aspart 300 Units/3 Ml Solution, SQ AC, (Reported) 150-200 = 1 UNIT 201-250 = 2 UNITS 251-300 = 3 UNITS 301-350 = 4 UNITS 351- 400 = 5 UNITS 400+ 6 UNITS Insulin Glargine,Hum.rec.anlog 300 Unit/1 Ml Insuln.pen, 40 UNIT SQ BID, (Reported) Levalbuterol HCl 1.25 Mg/3 Ml Vial.neb, 1.25 MG NEB Q6H PRN for SHORTNESS OF BREATH, (Reported) Metoprolol Succinate 100 Mg Tab.er.24h, 100 MG PO BID, (Reported) Ondansetron HCl 4 Mg Tab, 4 MG PO Q4H PRN for NAUSEA/VOMITING-1ST LINE, (Reported) Oxycodone HCl/Acetaminophen 1 Each Tablet, 1-2 TAB PO QID PRN for PAIN-MODERATE, (Reported) Pantoprazole Sodium 40 Mg Tablet.dr, 40 MG PO DAILY, (Reported) Potassium Chloride 20 Meq Tablet.er, 20 MEQ PO DAILY, (Reported) Promethazine HCl 25 Mg Tablet, 25 MG PO Q8H PRN for NAUSEA/VOMITING-2ND LINE Prescribed by: DAISY JOHNSON on 07/31/18 0900 Ropinirole HCl 1 Mg Tablet, 1 MG PO BID, (Reported) Past Dxssrae-Qxawqh-Tqigvo Hx Family Medical History Cardiovascular disease 19 FATHER 19 MOTHER Diabetes mellitus 19 MOTHER Irritable bowel syndrome G8 BROTHER Myocardial infarction 19 FATHER 19 MOTHER TIAs 19 MOTHER Review of Systems Time Seen by Provider: 04:24 Assessment/Plan Assessment/Plan Bradycardia -Repeat Labs pending -Cardiology consulted, -s/p Atropine -Dr. Dyer to evaluate this AM Acute renal insufficiency -Continue IVF -monitor labs Hyperglycemia -IV Insulin Aspart ordered Supervisory-Addendum Brief Verification & Attestation Participated in pt care: history, MDM, physical Personally performed: exam, history, MDM Care discussed with: Medical Student Procedures: n/a Verification and Attestation of Medical Student E/M Service A medical student performed and documented this service in my presence. I reviewed and verified all information documented by the medical student and made modifications to such information, when appropriate. I personally performed the physical exam and medical decision making. Logan Phelps, Apr 01, 2020,04:26 RUSTAM BOWEN MED STUDENT Apr 01, 2020 03:20 LOGAN PHELPS DO Apr 01, 2020 04:26
[2020-04-01 04:56] LABS: BASOPHILS % (AUTO) 0 % (0-10); EOSINOPHILS # (AUTO) 0.1 10^3/uL (0.0-0.3); EOSINOPHILS % (AUTO) 1 % (0-10); HEMATOCRIT 38 % (35-52); HEMOGLOBIN 12.2 g/dL (11.5-16.0); LYMPHOCYTES # (AUTO) 1.7 10^3/uL (1.0-4.0); LYMPHOCYTES % (AUTO) 12 % (12-44); MEAN CORPUSCULAR HEMOGLOBIN 31 pg (25-34); MEAN CORPUSCULAR HGB CONC 32 g/dL (32-36); MEAN CORPUSCULAR VOLUME 97 fL (80-99); MEAN PLATELET VOLUME 11.6 fL (9.0-12.2); MONOCYTES # (AUTO) 0.9 10^3/uL (0.0-1.0); MONOCYTES % (AUTO) 6 % (0-12); NEUTROPHILS # (AUTO) 12.1 10^3/uL (1.8-7.8); NEUTROPHILS % (AUTO) 81 % (42-75); PLATELET COUNT 225 10^3/uL (130-400); WHITE BLOOD COUNT 14.9 10^3/uL (4.3-11.0)
[2020-04-01 05:07] LABS: POTASSIUM 5.5 MMOL/L (3.6-5.0)
[2020-04-01 05:08] LABS: ALBUMIN 3.9 GM/DL (3.2-4.5)
[2020-04-01 05:09] LABS: CALCIUM 8.8 MG/DL (8.5-10.1)
[2020-04-01 05:10] LABS: TOTAL PROTEIN 6.6 GM/DL (6.4-8.2)
[2020-04-01 05:12] LABS: BILIRUBIN,TOTAL 0.4 MG/DL (0.1-1.0)
[2020-04-01 05:13] LABS: PHOSPHORUS 4.3 MG/DL (2.3-4.7)
[2020-04-01 05:14] LABS: CREATININE SERUM 1.76 MG/DL (0.60-1.30)
[2020-04-01 05:17] LABS: MAGNESIUM 2.4 MG/DL (1.6-2.4)
[2020-04-01] MEDS: POTASSIUM CL 10MEQ/50ML IVPB 50 ML IV SCH (05:19)
[2020-04-01] MEDS: MAGNESIUM 1 GM/100 ML IVPB 100 ML IV SCH (05:19)
[2020-04-01] MEDS: KCL 20 MEQ TAB (K-DUR) PO SCH (05:19)
[2020-04-01] MEDS: NS IV 1000 ML 1,000 ML IV SCH ×2 (05:27→09:24)
--- NOTE | 2020-04-01 07:12 | Diagnostic Imaging Report ---
INDICATION: Symptomatic bradycardia. TECHNIQUE: Single view chest 3:20 AM. CORRELATION STUDY: 03/31/2020 FINDINGS: Loop recorder device projects over the cardiac apex. Heart size is enlarged. Vasculature slightly more prominent from prior. Question minimal perihilar edema versus infiltrate. More peripheral lungs are otherwise slight groundglass opacities. Elevated right diaphragm. IMPRESSION: 1. Vasculature overall appears slightly increased from prior. There is questionable areas of perihilar edema versus infiltrate. Follow-up imaging as clinically warranted. Dictated by: Dictated on workstation # [id number]
--- NOTE | 2020-04-01 08:34 | History & Physicial ---
History of Present Illness History of Present Illness Reason for visit/HPI PT IS A 69 Y/O FEMALE WHO IS WELL KNOWN TO ME FROM CLINIC. SHE PRESENTED TO THE HOSPITAL AFTER THE NURSING STAFF AT [facility] CALLED MY OFFICE WITH [facility] FOR HER HEALTH - THE COOK AT THE FACILITY NOTICED SHE WAS "ACTING FUNNY" - THE NURSE CHECKED HER VITALS AND REPORTED THAT HER HEART RATE WAS AROUND 39 AND HER BLOOD PRESSURE WAS 54/40. WE ADVISED THEM TO CALL 911 AND TRANSPORT HER TO THE HOSPITAL. BILL NOTES THAT SHE IS FEELING BETTER, BUT STILL FATIGUED. Date of Admission Mar 31, 2020 at 16:46 Date Seen by a Provider: Apr 01, 2020 Time Seen by a Provider: 08:20 Attending Physician Daisy Motta MD Admitting Physician Daisy Motta MD Consult CARDIOLOGY Allergies and Home Medications Allergies Coded Allergies: Penicillins (Verified Allergy, Severe, SWELLING, HIVES, THROAT SWELLED, 01/21/16) PATIENT HAS RECEIVED CEFEPIME WITHOUT ISSUE Sulfa (Sulfonamide Antibiotics) (Verified Allergy, Severe, TONGUE SWELLED, 01/21/16) Tetanus & Diphtheria Tox,Adult (Verified Allergy, Severe, SWELLING OF THROAT, 01/21/16) codeine (Verified Allergy, Unknown, HAS RECEIVED LORTAB IN THE PAST, 01/21/16) egg (Unverified Allergy, Unknown, 06/29/16) FROM UNCODED ALLERGIES Home Medications Acetaminophen 325 Mg Capsule, 325-650 MG PO Q6H PRN for PAIN-MILD (1-4) OR TEMPATURE, (Reported) Albuterol Sulfate 2.5 Mg/3 Ml Vial.neb, 2.5 MG NEB Q4- 6H PRN for SHORTNESS OF BREATH, (Reported) Allopurinol 100 Mg Tablet, 100 MG PO DAILY, (Reported) Alprazolam 0.5 Mg Tablet, 0.5 MG PO BID PRN for ANXIETY, (Reported) Apixaban 5 Mg Tablet, 5 MG PO BID, (Reported) Aripiprazole 2 Mg Tablet, 2 MG PO 2000, (Reported) Azelastine HCl 137 Mcg/0.137 Ml Boyds.pump, 1 SPRAY NA TID, (Reported) Bupropion HCl 300 Mg Tab.er.24h, 300 MG PO DAILY, (Reported) Calcium Carbonate 500 Mg Tablet, 1,000 MG PO DAILY, (Reported) Cholecalciferol (Vitamin D3) 125 Mcg Tablet, 125 MCG PO DAILY, (Reported) Colestipol HCl 1 Gm Tablet, 1 GM PO BID, (Reported) Cyclobenzaprine HCl 10 Mg Tablet, 10 MG PO Q8H PRN for MUSCLE SPASMS, (Reported) Docusate Sodium 100 Mg Capsule, 100 MG PO DAILY, (Reported) Famotidine 40 Mg Tablet, 40 MG PO 1999, (Reported) Ferrous Sulfate 325 Mg Tablet, 325 MG PO DAILY, (Reported) Fluticasone Propion/Salmeterol 1 Each Blst.w.dev, 1 PUFF INH BID, (Reported) Fluticasone Propionate 16 Gm Boyds.susp, 1 SPRAY NSEACH BID, (Reported) Furosemide 40 Mg Tablet, 40 MG PO 0800,1100, (Reported) Gabapentin 300 Mg Capsule, 900 MG PO TID, (Reported) TAKES 3 (300MG) CAPS Insulin Glargine,Hum.rec.anlog 300 Unit/1 Ml Insuln.pen, 30 UNIT SQ HS, (Reported) Insulin Lispro 100 Unit/1 Ml Insuln.pen, UNITS SC TIDWM, (Reported) 8 UNITS EACH MEAL WITH SLIDING SCALE: 150-200=1 UNIT 201-250=2 UNITS 251- 300=3 UNITS 301-350=4 UNITS 351-400=6 UNITS 400+=6 UNITS Levalbuterol HCl 1.25 Mg/3 Ml Vial.neb, 1.25 MG NEB Q6H PRN for SHORTNESS OF BREATH, (Reported) Levocetirizine Dihydrochloride 5 Mg Tablet, 5 MG PO DAILY, (Reported) Montelukast Sodium 10 Mg Tablet, 10 MG PO HS, (Reported) Nystatin 15 Gm Powder, 1 APPLIC TOP QID PRN for RASH, (Reported) APPLY TO [place] AREA Ondansetron HCl 4 Mg Tab, 4 MG PO Q4H PRN for NAUSEA/VOMITING-1ST LINE, (Reported) Oxycodone HCl/Acetaminophen 1 Each Tablet, 1 EA PO QID PRN for PAIN-MODERATE, (Reported) Pantoprazole Sodium 20 Mg Tablet.dr, 20 MG PO DAILY, (Reported) Potassium Chloride 20 Meq Tablet.er, 20 MEQ PO DAILY, (Reported) Ropinirole HCl 1 Mg Tablet, 1 MG PO BID, (Reported) Sodium Chloride/Aloe Vera 14.1 Gm Gel..gram., 1 APPLIC NA HS, (Reported) Patient Home Medication List Home Medication List Reviewed: Yes Past Juvsggy-Bstgft-Bjnbwu Hx Patient Social History Marrital Status: Number of Children: 2 Number of living children: 2 Living Status: [facility] 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, Menopausal Genitourinary Yes UTI-Chronic Gastrointestinal Yes Colitis, Gastroesophageal Reflux, Diverticulosis, Irritable Bowel Musculoskeletal Yes (CHRONIC BACK PAIN AND SCIATICA; CHRONIC NECK AND SHOULDER PAIN ) Arthritis, Fibromyalgia, Chronic Back Pain Endocrine History of Endocrine Disorders: Yes (OBESITY) Endocrine Disorders: Diabetes, Insulin dep, Hypothyroidsim HEENT History of HEENT Disorders: Yes HEENT Disorders: Tonsilitis Loss of Vision: Denies Hearing Impairment: Denies Cancer No Psychosocial History of Psychiatric Problem: Yes Behavioral Health Disorders: Anxiety, Depression Integumentary History of Skin or Integumenta: No Blood Transfusions History of Blood Disorders: Yes (CHRONIC ANEMIA) Adverse Reaction to a Blood Tr: No Family Medical History Significant Family History: Heart Disease, CAD Over 55 Years Old, CVA, Diabetes, GI Disease, Hypertension, Stroke, Vascular Disease Family Hx: Cardiovascular disease 19 FATHER 19 MOTHER Diabetes mellitus 19 MOTHER Irritable bowel syndrome G8 BROTHER Myocardial infarction 19 FATHER 19 MOTHER TIAs 19 MOTHER Review of Systems Constitutional: No chills, No fever; malaise, weakness (CHRONIC) EENTM: hearing loss; No throat pain Respiratory: cough, dyspnea on exertion, short of breath Cardiovascular: No chest pain; Hx of Intervention, other (NEAR SYNCOPE) Gastrointestinal: No constipation, No diarrhea; nausea (CHRONIC INTERMITTENT); No vomiting Genitourinary: no symptoms reported, other (CROCKER IN PLACE) Musculoskeletal: back pain, muscle weakness Skin: no symptoms reported Psychiatric/Neurological: Anxiety, Depressed; Denies Pre-Existing Deficit; Weakness All Other Systems Reviewed Negative Unless Noted: Yes Physical Exam Vital Signs Vital Signs - First Documented Capillary Refill : Less Than 3 Seconds Height, Weight, BMI Height: 5'5.00" Weight: 225lbs. 0.0oz. 102.943350mr; 37.00 BMI Method:Estimated General Appearance: No Apparent Distress, WD/WN Eyes: Bilateral Eye Normal Inspection, Bilateral Eye PERRL, Bilateral Eye EOMI HEENT: PERRL/EOMI, Pharynx Normal Neck: Full Range of Motion, Normal Inspection, Non Tender, Supple Respiratory: Chest Non Tender, Lungs Clear, Normal Breath Sounds, No Accessory Muscle Use, No Respiratory Distress Cardiovascular: No Edema, Normal Peripheral Pulses, Bradycardia Gastrointestinal: Normal Bowel Sounds, No Organomegaly, No Pulsatile Mass, Non Tender, Soft Rectal: Deferred Back: Normal Inspection, No Vertebral Tenderness Extremity: Normal Capillary Refill, Normal Inspection, Normal Range of Motion, Non Tender, No Calf Tenderness, No Pedal Edema Neurologic/Psychiatric: Alert, Oriented x3, No Motor/Sensory Deficits, Normal 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 CLEMENTE - DISCUSSION ABOUT POSSIBLE PACEMAKER PLACEMENT SHOULD SHE NOT RESPOND APPROPRIATELY TO MEDICATION ADJUSTMENTS AND IV FLUIDS. - CONTINUE WITH ICU STATUS UNTIL SYMPTOMS IMPROVE. CHRONIC ATRIAL FIBRILLATION WITH HX OF ABLATION - PT ON CHRONIC ANTICOAGULATION - SUPPORTIVE CARE AT THIS TIME, WILL HOLD CURRENT MEDS EXCEPT FOR ELIQUIS. CHRONIC HYPERTENSION - HOLDING HOME REGIMEN - MEDICATIONS TO BE ADJUSTED FOR APPROPRIATE RATE CONTROL AND BP SUPPORT. DIABETES MELLITUS - RESUMED HOME REGIMEN, MONITOR FSBS CLOSELY DEPRESSION AND ANXIETY - RESUME HOME MEDICATIONS ONCE RECONCILIATION IS COMPLETED STAGE 2 RENAL DISEASE - SUPPORTIVE CARE, FLUIDS IMPROVED RENAL FUNCTION FROM ADMISSION OF 2 DOWN TO 1.75 CHRONIC PAIN SYNDROME - RESUME HOME REGIMEN OF PRN USE OF MEDICATION. PERIPHERAL NEUROPATHY DUE TO DIABETES MELLITUS - WILL RESTART GABAPENTIN ONCE DOSE IS VERIFIED. GOUT - SUPPORTIVE CARE,MONITOR SYMPTOMS. IRON DEFICIENCY ANEMIA - HOLD ORAL IRON RIGHT NOW. ESOPHAGEAL REFLUX - RESUME PPI SEASONAL ALLERGIES - HOLD MEDICATIONS, MONITOR SYMPTOMS. Admission Diagnosis NEAR SYNCOPE BRADYCARDIA SEVERE HYPOTENSION CHRONIC ATRIAL FIBRILLATION HX OF ABLATION CORONARY ARTERY DISEASE CHRONIC HYPERTENSION DIABETES MELLITUS DEPRESSION ANXIETY STAGE 2 RENAL DISEASE CHRONIC ANTICOAGULATION WITH NOAC CHRONIC PAIN SYNDROME PERIPHERAL NEUROPATHY DUE TO DIABETES MELLITUS GOUT IRON DEFICIENCY ANEMIA ESOPHAGEAL REFLUX SEASONAL ALLERGIES Admission Status: Inpatient Order (span 2 midnights) Reason for Inpatient Admission: INPT ADMISSION FOR SEVERE BRADYCARDIA, HYPOTENSION, POSSIBLE SHOCK FROM HYPOTENSION AND NEAR SYNCOPE WITH KNOWN CARDIAC DISEASE - WILL REQUIRE AT LEAST 72 HOURS FOR MEDICATION ADJUSTMENTS TO DOCUMENT STABILITY OF SYMPTOMS WITH MEDICATION CHANGES TO PREVENT PT FROM RETURNING TO HOSPITAL FOR RECURRENT AFIB OR WORSENING BRADYCARDIA Clinical Quality Measures DVT/VTE Risk/Contraindication: Risk Factor Score Per Nursin RFS Level Per Nursing on Admit: 3=High DAISY MOTTA MD Apr 01, 2020 08:34
[2020-04-01] MEDS: lisINopril 10 MG (PRINIVIL) TABLET PO SCH (09:19)
[2020-04-01] MEDS: DOPamine DRIP 250 ML IV SCH (09:24)
[2020-04-01] MEDS: ONDANSETRON 4 MG/2 ML (SDV) Z0FRAN IVP PRN ×2 (09:55→21:17)
[2020-04-01] MEDS ORDERED: FLUT1BLS12 INH (13:43)
[2020-04-01] MEDS ORDERED: ALBU2.5V4 NEB (13:43)
[2020-04-01] MEDS ORDERED: LEVO5TAB12 PO (13:43)
[2020-04-01] MEDS ORDERED: SODI0.5GEL (13:43)
[2020-04-01] MEDS ORDERED: ACET325C7 PO (13:43)
[2020-04-01] MEDS ORDERED: INSU100I48 SC (13:43)
[2020-04-01] MEDS ORDERED: AZEL137S11 (13:43)
[2020-04-01] MEDS ORDERED: ALLO100T PO (13:43)
[2020-04-01] MEDS ORDERED: FLUT16SP22 NSEACH (13:43)
[2020-04-01] MEDS ORDERED: CHOL500044 PO (13:43)
[2020-04-01] MEDS ORDERED: FAMO40TA6 PO (13:43)
[2020-04-01] MEDS ORDERED: LISI2.5T PO (13:43)
[2020-04-01] MEDS ORDERED: PANT20TA18 PO (13:43)
[2020-04-01] MEDS ORDERED: CALC-823 PO (13:43)
[2020-04-01] MEDS ORDERED: NYST15PO2 TOP (13:43)
[2020-04-01] MEDS ORDERED: MONT10TA26 PO (13:43)
[2020-04-01] MEDS ORDERED: DOCU-143 PO (13:43)
[2020-04-01] MEDS ORDERED: GABA300C PO (13:43)
[2020-04-01] MEDS ORDERED: BUPR300T98 PO (13:43)
[2020-04-01] MEDS ORDERED: ARIP2TAB20 PO (13:43)
--- NOTE | 2020-04-01 13:47 | NUR ---
MED REC WAS ENTERED USING THE MAR FROM [facility]
[2020-04-01] MEDS ORDERED: ENOXAPARIN 100 MG/1 ML (LOVENOX) SYR SC NR (14:15)
--- NOTE | 2020-04-01 14:54 | Consultation-Cardiology ---
HPI-Cardiology Cardiology Consultation Date of Consultation 04/01/20 Date of Admission Time Seen by Provider: 09:30 HPI Patient is a 69 y/o female with hx of PAF, HTN, HLP. Presented to the ER from the longterm with symptomatic bradycardia with HR in the 30s, hypotension. Patient reports she started having episodes of dizziness approx 2 days ago. Denies any chest pain or dyspnea, denies any syncope. Had AF ablation done in 2015 and is s/p Linq implantation. Interrogation done by me this morning showing patient went into atrial fibrillation on 03/31/2020 with HR in the 50's. Currently, patient is in bed, complaining of some fatigue. HR noted to be in the low 40's. Denies any dizziness at this time. Home Medications & Allergies Allergies: Coded Allergies: Penicillins (Verified Allergy, Severe, SWELLING, HIVES, THROAT SWELLED, 01/21/16) PATIENT HAS RECEIVED CEFEPIME WITHOUT ISSUE Sulfa (Sulfonamide Antibiotics) (Verified Allergy, Severe, TONGUE SWELLED, 01/21/16) Tetanus & Diphtheria Tox,Adult (Verified Allergy, Severe, SWELLING OF THROAT, 01/21/16) codeine (Verified Allergy, Unknown, HAS RECEIVED LORTAB IN THE PAST, 01/21/16) egg (Unverified Allergy, Unknown, 06/29/16) FROM UNCODED ALLERGIES Home Medication List Reviewed: Yes VJB-Gyhada-Yacdvs Hx Patient Social History Marital Status: Employed/Student: retired Alcohol Use: Denies Use Recreational Drug Use: No 2nd Hand Smoke Exposure: Yes (DAD WAS HEAVY SMOKER) Recent Foreign Travel: No Recent Infectious Disease Expo: No Recent Hopitalizations: No Immunizations Up To Date Tetanus Booster (TDap): Unknown Date of Pneumonia Vaccine: Mar 31, 2017 Past Medical History PAF, HTN, HLP, Family Medical History Significant Family History: Heart Disease, Diabetes, GI Disease, Hypertension, Stroke Family History: Cardiovascular disease 19 FATHER 19 MOTHER Diabetes mellitus 19 MOTHER Irritable bowel syndrome G8 BROTHER Myocardial infarction 19 FATHER 19 MOTHER TIAs 19 MOTHER Review of Systems-General Review of Systems Constitutional: see HPI; No chills, No fever; malaise EENTM: see HPI, no symptoms reported; No blurred vision, No double vision Respiratory: see HPI; No cough; dyspnea on exertion, short of breath Cardiovascular: No chest pain; Hx of Intervention; No palpitations Gastrointestinal: No abdominal pain, No nausea, No vomiting Genitourinary: no symptoms reported, see HPI Musculoskeletal: No joint pain, No muscle pain Skin: no symptoms reported Psychiatric/Neurological: Denies Headache; Weakness All Other Systems Reviewed Negative Unless Noted: Yes Reviewed Test Results Reviewed Test Results Lab Laboratory Tests 03/31/20 23:41: Glucometer 206H 04/01/20 04:25: White Blood Count 14.9H, Red Blood Count 3.89, Hemoglobin 12.2, Hematocrit 38, Mean Corpuscular Volume 97, Mean Corpuscular Hemoglobin 31, Mean Corpuscular Hemoglobin Concent 32, Red Cell Distribution Width 14.2, Platelet Count 225, Mean Platelet Volume 11.6, Immature Granulocyte % (Auto) 0, Neutrophils (%) (Auto) 81H, Lymphocytes (%) (Auto) 12, Monocytes (%) (Auto) 6, Eosinophils (%) (Auto) 1, Basophils (%) (Auto) 0, Neutrophils # (Auto) 12.1H, Lymphocytes # (Auto) 1.7, Monocytes # (Auto) 0.9, Eosinophils # (Auto) 0.1, Basophils # (Auto) 0.0, Immature Granulocyte # (Auto) 0.1, Sodium Level 137, Potassium Level 5.5H, Chloride Level 102, Carbon Dioxide Level 21, Anion Gap 14, Blood Urea Nitrogen 39H, Creatinine 1.76H, Estimat Glomerular Filtration Rate 29, BUN/Creatinine Rat io 22, Glucose Level 238H, Calcium Level 8.8, Corrected Calcium 8.9, Phosphorus Level 4.3, Magnesium Level 2.4, Total Bilirubin 0.4, Aspartate Amino Transf (AST/SGOT) 32, Alanine Aminotransferase (ALT/SGPT) 34, Alkaline Phosphatase 107, Total Protein 6.6, Albumin 3.9, Triglycerides Level 392H, Cholesterol Level 206H , LDL Cholesterol Direct 130H, VLDL Cholesterol 78H, HDL Cholesterol 39L 04/01/20 10:32: Glucometer 212H Microbiology 03/31/20 MRSA Screen - Final, Complete ECG Impression ECG Initial ECG Rhythm: A Fib/Flutter Initial ECG Impression: Atrial Fibrillation Physical Exam Physical Exam Vital Signs Vital Signs - First Documented Capillary Refill : Less Than 3 Seconds Height, Weight, BMI Height: 5'5.00" Weight: 225lbs. 0.0oz. 102.373447pd; 37.00 BMI Method:Estimated General Appearance: No Apparent Distress, WD/WN, Anxious HEENT: PERRL/EOMI, Pharynx Normal; No Scleral Icterus (L), No Scleral Icterus (R) Neck: Normal Inspection, Non Tender; No Carotid Bruit Respiratory: Chest Non Tender, Normal Breath Sounds, No Accessory Muscle Use, No Respiratory Distress, Wheezing (Trace expiratory bilateral) Cardiovascular: No Murmur, Normal Peripheral Pulses, Bradycardia Gastrointestinal: Non Tender, Soft Back: Normal Inspection, No CVA Tenderness, No Vertebral Tenderness Extremity: Normal Range of Motion, Non Tender, No Calf Tenderness, Pedal Edema (mild, 1+ pitting) Neurologic/Psychiatric: Alert, Oriented x3, Normal Mood/Affect Skin: Normal Color, Warm/Dry A/P-Cardiology Admission Diagnosis Bradycardia Hypotension PAF HLP Assessment/Plan Symptomatic bradycardia with dizziness and lightheadedness, HR in the 30's. Has been maintained on multiple rate controlling medications as outpatient. I will hold Amiodarone, diltiazem, Toprol and flecainide. Conitnue to monitor HR. Hypotension, improved, continue to monitor. Paroxysmal atrial fibrillation/paroxysmal atrial tachycardia-followed by Dr. Lr. Patient underwent ablation April 2016. Had short runs of atrial fibrillation postoperatively. She is maintained on flecainide, diltiazem, Toprol, Eliquis. s/p LINq implantation. Patient is currently back in atrial fibrillation. Sick sinus syndrome with 4 seconds pause noted on her Reveal device in the past, was asymptomatic, continue to monitor. No recent pause on most recent interrogation done this morning. [id number] score of 4, yearly risk of stroke without OAC is 4%. Patient is maintained on Eliquis. Mild coronary artery disease per cardiac catheterization nonobstructive disease done in August 2015, continue to monitor. Most recent stress test and 2-D ech ocardiogram done June 2018 revealed no ischemia or infarct History of near syncope, patient reports improvement, continue to monitor. 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 management per Dr. Phelps. Mild bilateral carotid stenosis, nonobstructive disease, continue to monitor as outpatient Asthma, followed by Dr. Phelps Peripheral edema, chronic, waxing and waning. Venous insufficiency scan done March 2016 was negative for reflux. Hypertension, currently hypotensive, continue to monitor. Hyperlipidemia, continue to monitor. Hypothyroidism, followed and managed by primary care physician Maturity-onset diabetes mellitus, followed and managed by primary care physician. Gastric esophageal reflux disease Thank you for allowing us to participate in the management of Ms. Boyce. This is Nancie Velazquez PA-C, as a scribe for Dr. Dyer. Patient was seen and evaluated with Nancie, examination performed, management plan was discussed, agree with the current scribed note, I made few changes to the note using Italic font Patient was seen at bedside, laying down comfortably, heart rate is better, was on multiple medication that it can cause bradycardia, she is back in atrial fibrillation I gave her additional dose of Lovenox and restarted oral anticoagulation, continue to hold amiodarone and flecainide and Toprol and monitor tolerance and response Clinical Quality Measures DVT/VTE Risk/Contraindication: Risk Factor Score Per Nursin RFS Level Per Nursing on Admit: 3=High NANCIE CHEATHAM Apr 01, 2020 2:54 pm WINNIE DYER MD Apr 01, 2020 3:47 pm
--- NOTE | 2020-04-01 15:15 | NUR ---
THIS NURSE NOTIFIED DR JOHNSON PT TESTED POSITIVE FOR MRSA OF THE NARES. ORDERS GIVEN. SEE ORDER HX.
--- NOTE | 2020-04-01 19:30 | NUR ---
1999: PT REQUESTING HOME MEDICATIONS: OXYCODONE, ROPINIROLE, XANAX AND GABAPENTIN. THIS RN CALLED E-ICU. E-ICU DOCTOR CONCERNED ABOUT PT'S REASON FOR ADMISSION OF BRADYCARDIA AND HYPOTENSION AND ADMINISTERING THESE MEDICATIONS. NEW ORDER RECEIVED FOR OXYCODONE 5/325 X1. 2114: PT IS VOMITING AT THIS TIME. 4MG PRN ZOFRAN ADMINISTERED. COLD WASH CLOTH GIVEN TO PT. SPRITE AND SALTINE CRACKERS ALSO GIVEN TO PT. 2129: PT AGREES TO WAIT ON NIGHT TIME MEDICATIONS UNTIL HER STOMACH IS SETTLED. 2209: PT VOMITING AGAIN. PRN ZOFRAN IS ORDERED TO BE GIVEN Q6. THIS RN CALLED E-ICU. NEW ORDER RECEIVED FOR 40 MG IV PROTONIX ONCE/NOW.
[2020-04-01] MEDS ORDERED: oxyCODONE/APAP 5/325MG (PERCOCET 5) TABLET PO ONE (20:15)
[2020-04-01] MEDS ORDERED: PANTOPRAZOLE 40 MG (PROTONIX) VIAL ONE (22:24)
[2020-04-01] MEDS ORDERED: PANTOPRAZOLE 40 MG (PROTONIX) VIAL IV ONE (22:30)
[2020-04-01] MEDS: MUPIROCIN 2% OINT 22 GM (BACTROBAN) TUBE NSEACH SCH (23:53)
[2020-04-01] MEDS: APIXABAN 5 MG (ELIQUIS) TABLET PO SCH (23:57)
[2020-04-02] MEDS: ONDANSETRON 4 MG/2 ML (SDV) Z0FRAN IVP PRN ×4 (00:42→21:45)
--- NOTE | 2020-04-02 00:46 | NUR ---
PT CONTINUES TO BE NAUSEOUS. THIS RN CALLED E-ICU; ORDER RECEIVED TO GIVE PRN ZOFRAN EARLY.
[2020-04-02] MEDS ORDERED: morphine INJ 10 MG/ML 1ML (SYR OR VIAL) IVP STA (02:07)
--- NOTE | 2020-04-02 02:15 | NUR ---
PT VOMITING GREEN BILE AT THIS TIME; E-ICU NOTIFIED. SEE ORDER HISTORY FOR NEW ORDERS.
--- NOTE | 2020-04-02 02:59 | Pulmonary Progress Note ---
RUSTAM BOWEN MED STUDENT 04/02/20 0259: Subjective Date Seen by a Provider: Apr 02, 2020 Time Seen by a Provider: 03:45 Subjective/Events-last exam Patient currently complains of RLQ pain, nausea and vomiting all night. Pain is exacerbated by palpation, denies CP, palpitations, SOB and wheezing. Otherwise no complaints, patient was sleeping prior to exam. Sepsis Event Evaluation Height, Weight, BMI Height: 5'5.00" Weight: 225lbs. 0.0oz. 102.415109kv; 37.00 BMI Method:Estimated Focused Exam Lactate Level 04/02/20 02:32: Lactic Acid Level Laboratory Tests Test 04/02/20 02:32 Exam Exam Vital Signs Date Time Temp Pulse Resp B/P (MAP) Pulse Ox O2 Delivery O2 Flow Rate FiO2 04/01/20 23:00 83 17 150/75 96 Nasal Cannula 2.00 04/01/20 22:00 81 24 166/74 95 Nasal Cannula 2.00 04/01/20 21:00 80 14 154/62 100 Nasal Cannula 2.00 04/01/20 20:32 36.9 04/01/20 20:00 Nasal Cannula 2.00 04/01/20 20:00 80 22 131/55 100 Nasal Cannula 2.00 04/01/20 19:00 80 04/01/20 19:00 81 16 115/66 100 Nasal Cannula 2.00 04/01/20 18:00 73 10 112/68 100 Nasal Cannula 2.00 04/01/20 17:00 74 13 117/94 100 Nasal Cannula 2.00 04/01/20 16:00 73 21 148/95 100 Nasal Cannula 2.00 04/01/20 15:45 36.2 04/01/20 15:00 72 38 100 Nasal Cannula 2.00 04/01/20 14:00 70 17 130/56 100 Nasal Cannula 2.00 04/01/20 13:00 57 14 122/116 99 Nasal Cannula 2.00 04/01/20 12:41 63 04/01/20 12:25 35.5 04/01/20 12:00 43 14 129/65 97 Nasal Cannula 2.00 04/01/20 11:00 37 18 154/72 98 Nasal Cannula 2.00 04/01/20 10:33 97 Nasal Cannula 3.00 04/01/20 10:00 38 17 146/67 98 Nasal Cannula 2.00 04/01/20 09:24 41 128/54 04/01/20 09:00 41 17 130/80 97 Nasal Cannula 2.00 04/01/20 08:00 Nasal Cannula 2.00 04/01/20 08:00 43 16 121/43 98 Nasal Cannula 2.00 04/01/20 07:55 35.2 04/01/20 07:00 43 18 137/48 96 Nasal Cannula 2.00 04/01/20 06:42 48 04/01/20 06:00 48 16 162/52 99 Nasal Cannula 2.00 04/01/20 05:00 45 18 149/65 95 Nasal Cannula 2.00 04/01/20 04:00 44 19 145/55 96 Nasal Cannula 2.00 04/01/20 04:00 Nasal Cannula 2.00 04/01/20 04:00 35.6 04/01/20 03:00 44 18 146/58 97 Nasal Cannula 2.00 I & O 04/02/20 07:00 Intake Total 1700 ml Output Total 1245 ml Balance 455 ml Height & Weight Height: 5'5.00" Weight: 225lbs. 0.0oz. 102.295797uh; 37.00 BMI Method:Estimated General Appearance: No Apparent Distress, WD/WN HEENT: No Scleral Icterus (L), No Scleral Icterus (R) Neck: Normal Inspection, Non Tender; No Carotid Bruit Respiratory: Chest Non Tender, Lungs Clear, Normal Breath Sounds, No Accessory Muscle Use, No Respiratory Distress, Wheezing (Trace expiratory bilateral) Cardiovascular: Regular Rate, Rhythm, No Murmur, Normal Peripheral Pulses Capillary Refill: Less Than 3 Seconds Peripheral Pulses: 2+ Dorsalis Pedis (R), 2+ Left Dors-Pedis (L), 2+ Radial P ulses (R), 2+ Radial Pulses (L) Gastrointestinal: soft, no organomegaly, no pulsatile mass, tenderness (RLQ); No mass, No hepatomegaly, No spleenomegaly Extremity: Non Tender, No Calf Tenderness, Pedal Edema (mild, 1+ pitting) Neurologic/Psychiatric: Alert, Oriented x3, Normal Mood/Affect; No Aphasia, No Disoriented Skin: Normal Color, Warm/Dry Results Lab Laboratory Tests 03/31/20 14:45 04/01/20 04:25 Assessment/Plan Assessment/Plan Abdominal pain, RLQ -cxr, KUB ordered Nausea/Vomiting -Odensetron ordered Bradycardia -resolved -Cardiology consulted -Interrogation done: afib yesterday -Rate control medications withheld -monitor vitals -no other intervention recommended at this time -s/p Atropine Acute renal insufficiency -Continue IVF -Cr improving -monitor labs Hyperglycemia -IV Insulin Aspart ordered -resolved SANAZ -currently on 2Lnc with 92% sat -recommend continue use of home CPAP Asthma -no SOB at this time -maintain use of home Levalbuterol ZIA WU DO 04/02/20 0501: Assessment/Plan Assessment/Plan Abdominal pain, RLQ -cxr, KUB ordered Nausea/Vomiting -Odensetron ordered -Add Phenergan Bradycardia -resolved -Cardiology consulted -Interrogation done: afib yesterday -Rate control medications withheld -monitor vitals -no other intervention recommended at this time -s/p Atropine Acute renal insufficiency -Continue IVF -Cr improving -monitor labs Hyperglycemia -IV Insulin Aspart ordered -resolved SANAZ -currently on 2Lnc with 92% sat -recommend continue use of home CPAP Asthma -no SOB at this time -maintain use of home Levalbuterol To 4th if ok with Dr. Motta. RUSTAM BOWEN MED STUDENT Apr 02, 2020 02:59 ZIA WU DO Apr 02, 2020 05:01
[2020-04-02] MEDS: KCL 20 MEQ TAB (K-DUR) PO SCH (03:47)
[2020-04-02] MEDS: POTASSIUM CL 10MEQ/50ML IVPB 50 ML IV SCH (03:47)
[2020-04-02] MEDS: MAGNESIUM 1 GM/100 ML IVPB 100 ML IV SCH (03:47)
[2020-04-02 04:00] LABS: ALBUMIN 3.7 GM/DL (3.2-4.5); BASOPHILS % (AUTO) 0 % (0-10); EOSINOPHILS % (AUTO) 0 % (0-10); HEMATOCRIT 35 % (35-52); HEMOGLOBIN 10.9 g/dL (11.5-16.0); LYMPHOCYTES # (AUTO) 0.8 10^3/uL (1.0-4.0); LYMPHOCYTES % (AUTO) 10 % (12-44); MEAN CORPUSCULAR HEMOGLOBIN 31 pg (25-34); MEAN CORPUSCULAR HGB CONC 31 g/dL (32-36); MEAN CORPUSCULAR VOLUME 99 fL (80-99); MEAN PLATELET VOLUME 11.8 fL (9.0-12.2); MONOCYTES # (AUTO) 0.4 10^3/uL (0.0-1.0); MONOCYTES % (AUTO) 5 % (0-12); NEUTROPHILS # (AUTO) 6.6 10^3/uL (1.8-7.8); NEUTROPHILS % (AUTO) 83 % (42-75); PLATELET COUNT 163 10^3/uL (130-400); WHITE BLOOD COUNT 7.9 10^3/uL (4.3-11.0)
[2020-04-02 04:01] LABS: POTASSIUM 4.6 MMOL/L (3.6-5.0)
[2020-04-02 04:02] LABS: CALCIUM 8.7 MG/DL (8.5-10.1)
[2020-04-02 04:03] LABS: TOTAL PROTEIN 6.3 GM/DL (6.4-8.2)
[2020-04-02 04:05] LABS: BILIRUBIN,TOTAL 0.6 MG/DL (0.1-1.0)
[2020-04-02 04:06] LABS: PHOSPHORUS 3.4 MG/DL (2.3-4.7)
[2020-04-02 04:07] LABS: CREATININE SERUM 1.25 MG/DL (0.60-1.30)
[2020-04-02 04:10] LABS: MAGNESIUM 2.3 MG/DL (1.6-2.4)
[2020-04-02] MEDS: inSUlin ASPART (NovoLOG) 1 UNIT/0.01 ML (CHARGE PER UNIT) SC SCH ×4 (05:57→21:08)
[2020-04-02] MEDS: NS IV 1000 ML 1,000 ML IV SCH (05:58)
--- NOTE | 2020-04-02 06:39 | Diagnostic Imaging Report ---
INDICATION: Abdominal pain Supine images of the abdomen are obtained. Overall bowel gas pattern is unremarkable. Surgical clips are seen in the gallbladder fossa. Surgical clip is seen in the right lower quadrant which may be related to appendectomy. There is no evidence of free intraperitoneal gas or pneumatosis. There is diffuse lumbar spondylosis. IMPRESSION: No acute abnormality is detected. Dictated by: Dictated on workstation # [id number]
--- NOTE | 2020-04-02 07:47 | Diagnostic Imaging Report ---
Reason for examination: Bradycardia, renal insufficiency. Upright AP portable chest was obtained and compared to yesterday. Cardiac silhouette is within normal limits with no mediastinal widening. Loop recorder is noted with central pulmonary vascular congestion and interstitial pulmonary edema. No focal consolidating pneumonia. No large pleural effusion. No pneumothorax. IMPRESSION: 1. Central pulmonary vascular congestion with interstitial edema. Dictated by: Dictated on workstation # [id number]
[2020-04-02] MEDS: PANTOPRAZOLE 40 MG (PROTONIX) VIAL IV SCH (08:06)
[2020-04-02] MEDS: MUPIROCIN 2% OINT 22 GM (BACTROBAN) TUBE NSEACH SCH ×2 (08:06→21:44)
[2020-04-02] MEDS: lisINopril 10 MG (PRINIVIL) TABLET PO SCH (08:08)
[2020-04-02] MEDS: APIXABAN 5 MG (ELIQUIS) TABLET PO SCH ×2 (08:09→22:25)
--- NOTE | 2020-04-02 08:46 | Cardiology Progress Note ---
Subjective Date Seen by Provider: Apr 02, 2020 Time Seen by Provider: 08:45 Subjective/Events-last exam Patient is sitting in bed, complaining of abdominal pain, nausea Review of Systems General: No Chills, No Night Sweats, No Fatigue, No Malaise, No Appetite, No Other HEENT: No Head Aches, No Visual Changes, No Eye Pain, No Ear Pain, No Dysphasia, No Sinus Congestion, No Post Nasal Drip, No Sore Throat, No Other Pulmonary: No Dyspnea, No Cough, No Pleuritic Chest Pain, No Other Cardiovascular: No: Chest Pain, Palpitations, Orthopnea, Paroxysmal Noc. Dyspnea, Edema, Lt Headedness, Other Focused Exam Lactate Level 04/02/20 02:32: Lactic Acid Level 2.00 Objective-Cardiology Exam Last Set of Vital Signs Vital Signs 04/02/20 04/02/20 04/02/20 08:00 08:19 08:22 Temp 36.4 Pulse 82 Resp 22 B/P (MAP) 137/68 Pulse Ox 97 O2 Delivery Room Air O2 Flow Rate 2.00 Capillary Refill : Less Than 3 Seconds I&O Intake and Output 04/02/20 00:00 Intake Total 1850 ml Output Total 1545 ml Balance 305 ml Intake Oral 600 ml IV Total 1250 ml Output Urine Total 1545 ml # Bowel Movements 1 # Emeses 3 General: Alert, Oriented X3, Cooperative HEENT: Atraumatic, PERRLA Neck: Supple, No JVD, No Thyromegaly Lungs: Clear to Auscultation, Normal Air Movement Heart: Regular Rate, Normal S1, Normal S2, No Murmurs Abdomen: Normal Bowel Sounds, Soft, No Tenderness, No Hepatosplenomegaly, No Masses Extremities: No Clubbing, No Cyanosis, No Edema, Normal Pulses, No Tenderness/Swelling Skin: No Rashes, No Breakdown, No Significant Lesion Neuro: Normal Gait, Normal Speech, Strength at 5/5 X4 Ext, Normal Tone, Sensation Intact Psych/Mental Status: Mental Status NL, Mood NL Results Lab Laboratory Tests 04/02/20 02:15 A/P-Cardiology Admission Diagnosis Bradycardia Hypotension PAF HLP Assessment/Plan Symptomatic bradycardia, secondary to medication, better today, continue to monitor Abdominal pain, nausea and vomiting, managed by primary care team Hypotension, better today, I am starting Toprol-XL 25 mg daily and will monitor tolerance and response Paroxysmal atrial fibrillation/paroxysmal atrial tachycardia-followed by Dr. Lr. Patient underwent ablation April 2016. Had short runs of atrial fibrillation postoperatively. She is maintained on flecainide, diltiazem, Toprol, Eliquis. s/p LINq implantation. Patient is currently back in atrial fibrillation, starting Toprol-XL and monitoring tolerance and response Sick sinus syndrome with 4 seconds pause noted on her Reveal device in the past, was asymptomatic, continue to monitor. No recent pause on most recent interrogation done this morning. [id number] score of 4, yearly risk of stroke without OAC is 4%. Patient is maintained on Eliquis. Mild coronary artery disease per cardiac catheterization nonobstructive disease done in August 2015, continue to monitor. Most recent stress test and 2-D echocardiogram done June 2018 revealed no ischemia or infarct History of near syncope, patient reports improvement, continue to monitor. 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 management per Dr. Phelps. Mild bilateral carotid stenosis, nonobstructive disease, continue to monitor as outpatient Asthma, followed by Dr. Phelps Peripheral edema, chronic, waxing and waning. Venous insufficiency scan done March 2016 was negative for reflux. Hypertension, currently hypotensive, continue to monitor. Hyperlipidemia, continue to monitor. Hypothyroidism, followed and managed by primary care physician Maturity-onset diabetes mellitus, followed and managed by primary care physician. Gastric esophageal reflux disease Clinical Quality Measures DVT/VTE Risk/Contraindication: Risk Factor Score Per Nursin RFS Level Per Nursing on Admit: 3=High WINNIE CLEMENTE MD Apr 02, 2020 08:46
[2020-04-02] MEDS ORDERED: FUROSEMIDE 40 MG/4 ML INJ (LASIX) IVP NR (09:15)
--- NOTE | 2020-04-02 09:20 | Progress Note ---
Subjective Subjective Date Seen by Provider: Apr 02, 2020 Time Seen by Provider: 09:00 PT COMPLAINING OF NAUSEA - SHE REPORTS THAT SHE IS NOT FEELING WELL TODAY. SHE STATES THAT SHE HAS SOME UPPER ABDOMINAL PAIN. SHE DENIES CHEST PAIN Review of Systems General: No Chills, No Night Sweats; Fatigue, Malaise, Appetite (DECREASED); No Other HEENT: No Ear Pain, No Dysphasia, No Sinus Congestion, No Post Nasal Drip, No Sore Throat Pulmonary: No Dyspnea, No Cough Cardiovascular: No: Chest Pain, Palpitations, Orthopnea, Paroxysmal Noc. Dyspnea, Edema Gastrointestinal: No: Vomiting, Abdominal Pain Genitourinary: No Dysuria, No Hematuria Musculoskeletal: No: leg pain, foot pain Neurological: Weakness; No: Change in speech, Confusion All Other Systems Reviewed All Other Systems Reviewed: Yes Objective Exam Vital Signs Vital Signs - First Documented Capillary Refill : Less Than 3 Seconds General Appearance: No Apparent Distress, WD/WN HEENT: No Scleral Icterus (L), No Scleral Icterus (R) Neck: Normal Inspection, Non Tender; No Carotid Bruit Respiratory: Chest Non Tender, Lungs Clear, Normal Breath Sounds, No Accessory Muscle Use, No Respiratory Distress, Wheezing (Trace expiratory bilateral) Cardiovascular: Regular Rate, Rhythm, No Murmur, Normal Peripheral Pulses Gastrointestinal: Non Tender, Soft Back: Normal Inspection, No CVA Tenderness, No Vertebral Tenderness Extremity: Non Tender, No Calf Tenderness, Pedal Edema (mild, 1+ pitting) Neurologic/Psychiatric: Alert, Oriented x3, Normal Mood/Affect; No Aphasia, No Disoriented Skin: Normal Color, Warm/Dry Results Lab Laboratory Tests 04/01/20 10:32: Glucometer 212H 04/01/20 16:40: Glucometer 157H 04/01/20 21:09: Glucometer 145H 04/02/20 02:15: White Blood Count 7.9, Red Blood Count 3.53L, Hemoglobin 10.9L, Hematocrit 35, Mean Corpuscular Volume 99, Mean Corpuscular Hemoglobin 31, Mean Corpuscular Hemoglobin Concent 31L, Red Cell Distribution Width 14.0, Platelet Count 163, Mean Platelet Volume 11.8, Immature Granulocyte % (Auto) 1, Neutrophils (%) (Auto) 83H, Lymphocytes (%) (Auto) 10L, Monocytes (%) (Auto) 5, Eosinophils (%) (Auto) 0, Basophils (%) (Auto) 0, Neutrophils # (Auto) 6.6, Lymphocytes # (Auto) 0.8L, Monocytes # (Auto) 0.4, Eosinophils # (Auto) 0.0, Basophils # (Auto) 0.0, Immature Granulocyte # (Auto) 0.1, Sodium Level 141, Potassium Level 4.6, Chloride Level 104, Carbon Dioxide Level 22, Anion Gap 15H, Blood Urea Nitrogen 27H, Creatinine 1.25, Estimat Glomerular Filtration Rate 42, BUN/Creatinine Ratio 22, Glucose Level 189H, Calcium Level 8.7, Corrected Calcium 8.9, Phosphorus Level 3.4, Magnesium Level 2.3, Total Bilirubin 0.6, Aspartate Amino Transf (AST/SGOT) 31, Alanine Aminotransferase (ALT/SGPT) 35, Alkaline Phosphatase 99, Total Protein 6.3L, Albumin 3.7 04/02/20 02:32: Lactic Acid Level 2.00, B-Type Natriuretic Peptide 238.0H Microbiology 03/31/20 MRSA Screen - Final, Complete Assessment/Plan Assessment/Plan Admission Dx NEAR SYNCOPE BRADYCARDIA SEVERE HYPOTENSION CHRONIC ATRIAL FIBRILLATION HX OF ABLATION CORONARY ARTERY DISEASE CHRONIC HYPERTENSION DIABETES MELLITUS DEPRESSION ANXIETY STAGE 2 RENAL DISEASE CHRONIC ANTICOAGULATION WITH NOAC CHRONIC PAIN SYNDROME PERIPHERAL NEUROPATHY DUE TO DIABETES MELLITUS GOUT IRON DEFICIENCY ANEMIA ESOPHAGEAL REFLUX SEASONAL ALLERGIES Admission Status: Inpatient Order (span 2 midnights) Assessment and Plan NEAR SYNCOPE BRADYCARDIA SEVERE HYPOTENSION CHRONIC ATRIAL FIBRILLATION HX OF ABLATION CORONARY ARTERY DISEASE CHRONIC HYPERTENSION DIABETES MELLITUS DEPRESSION ANXIETY STAGE 2 RENAL DISEASE CHRONIC ANTICOAGULATION WITH NOAC CHRONIC PAIN SYNDROME PERIPHERAL NEUROPATHY DUE TO DIABETES MELLITUS GOUT IRON DEFICIENCY ANEMIA ESOPHAGEAL REFLUX SEASONAL ALLERGIES NEAR SYNCOPE DUE TO BRADYCARDIA AND SEVERE HYPOTENSION - DEFER TO DR. CLEMENTE - DISCUSSION ABOUT POSSIBLE PACEMAKER PLACEMENT SHOULD SHE NOT RESPOND APPROPRIATELY TO MEDICATION ADJUSTMENTS AND IV FLUIDS. - CONTINUE WITH ICU STATUS UNTIL SYMPTOMS IMPROVE. CHRONIC ATRIAL FIBRILLATION WITH HX OF ABLATION - PT ON CHRONIC ANTICOAGULATION - SUPPORTIVE CARE AT THIS TIME, WILL HOLD CURRENT MEDS EXCEPT FOR ELIQUIS. CHRONIC HYPERTENSION - HOLDING HOME REGIMEN - MEDICATIONS TO BE ADJUSTED FOR APPROPRIATE RATE CONTROL AND BP SUPPORT. DIABETES MELLITUS - RESUMED HOME REGIMEN, MONITOR FSBS CLOSELY DEPRESSION AND ANXIETY - RESUMED HOME MEDICATIONS ONCE RECONCILIATION IS COMPLETED STAGE 2 RENAL DISEASE - SUPPORTIVE CARE, FLUIDS IMPROVED RENAL FUNCTION FROM ADMISSION OF 2 DOWN TO 1.75 CHRONIC PAIN SYNDROME - RESUMED HOME REGIMEN OF PRN USE OF MEDICATION. PERIPHERAL NEUROPATHY DUE TO DIABETES MELLITUS -RESTARTED GABAPENTIN. GOUT - SUPPORTIVE CARE,MONITOR SYMPTOMS. IRON DEFICIENCY ANEMIA - HOLD ORAL IRON RIGHT NOW. ESOPHAGEAL REFLUX - RESUMED PPI SEASONAL ALLERGIES - HOLD MEDICATIONS, MONITOR SYMPTOMS. Clinical Quality Measures DVT/VTE Risk/Contraindication: Risk Factor Score Per Nursin RFS Level Per Nursing on Admit: 3=High DAISY JOHNSON MD Apr 02, 2020 09:20
[2020-04-02] MEDS: PROMETHAZINE INJ 25 MG/ML (PHENERGAN) AMP IVP PRN (09:35)
--- NOTE | 2020-04-02 11:11 | NUR ---
PT CONTINUES TO BE NAUSEATED, IS IMPROVED SLIGHTLY WITH PHENERGAN AND IS NO LONGER VOMITING UP GREEN BILE BUT PT STATES SHE STILL FEELS SLIGHTLY NAUSEATED. OFFERED TO GIVE HER PO MORNING MEDS BUT SHE WISHES TO WAIT AT THIS TIME. SHE DID TELL THIS RN THAT SHE HAS BEEN HAVING SOME STRESS INCONTINENCE AND INCREASED FREQUENCY OF URINATION X 2 WEEKS. NO UA RESULTS SEEN. ORDERED UA PER PROTOCOL.
[2020-04-02 11:12] LABS: BILIRUBIN,URINE NEGATIVE (NEGATIVE); CLARITY,URINE CLEAR; COLOR,URINE YELLOW; GLUCOSE, URINE (UA) NEGATIVE (NEGATIVE); KETONES,URINE NEGATIVE (NEGATIVE); LEUKOCYTE ESTERASE ,URINE TRACE (NEGATIVE); NITRITE,URINE NEGATIVE (NEGATIVE); PH,URINE 5.5 (5-9); PROTEIN,URINE NEGATIVE (NEGATIVE)
[2020-04-02 11:31] LABS: BACTERIA,URINE NEGATIVE /HPF; RBC,URINE 25-50 /HPF; WBC,URINE 0-2 /HPF
[2020-04-02] MEDS: rOPINIRole 1 MG (REQUIP) TABLET PO SCH ×2 (13:29→22:25)
[2020-04-02] MEDS: GABAPENTIN 300 MG (NEURONTIN) CAP PO SCH ×3 (13:29→22:25)
[2020-04-02] MEDS: buPROPion SR 150 MG (WELLBUTRIN SR) TAB PO SCH ×2 (13:30→22:26)
--- NOTE | 2020-04-02 15:55 | NUR ---
RD ASSESSMENT PMHx: COPD; afib; CAD; hypercholesterolemia; HTN; chronic UTI; colitis; GERD; diverticulosis; irritable bowel; DM; hypothyroidism; PT INTERACTION: Pt was awake and pleasant during nutrition assessment. Pt states current appetite is poor, and has been this way for about 1w. Note avg PO intake 71% x1d, per chart review. Pt states following a diabetic diet at home, and has some issues with chewing food as she recently had teeth pulled. Pt states some recent issues with nausea, vomiting, constipation, and diarrhea. Note episodes of emesis on 04/02, per chart review. Note last BM was 03/23, and pt currently on bowel regimen of colace BID, per chart review. Pt states recent 15# wt gain, "sometime in the last 6mon." Note unable to determine recent wt hx, per chart review. Pt states current DM management is "pretty good." Pt states she CHO counts at home, but isn't sure of the amount of CHOs she should get at each meal. Note unable to determine recent HbA1c, per chart review. ABNORMAL NUTRITION-RELATED LAB VALUES LOW: Pro 6.3; HIGH: BUN 27; glu 189 Est. kcal needs: 8741-4595 kcal | 15-18 kcal/kg Est. Pro needs: 77-96 g Pro | 0.8-1.0 g Pro/kg PES STATEMENT: Inadequate oral intake (NI-2.1) related to loss of appetite, nausea, vomiting, constipation, and diarrhea, as evidenced by pt interview, chart review, and avg PO intake 71% x1d. INTERVENTION: Continue with current diet order of Heart Healthy diet. Pt may benefit from consistent CHO restriction if blood glucose levels become elevated. Pt may benefit from nutrition supplementation if PO intake declines. Offered and provided diet education on DM management. Discussed CHO counting and portion control. Pt verbalized understanding of information presented. Will attempt to reinforce education prior to discharge. Will continue to follow and reassess as pt needs, intake, and status change. Logan Silverman, MS RD LD
[2020-04-02] MEDS: METOCLOPRAMIDE INJ 10 MG/2 ML (REGLAN) IVP PRN (17:41)
[2020-04-02] MEDS ORDERED: FAMOTIDINE 40 MG (PEPCID) TABLET PO SCH (20:00)
[2020-04-02] MEDS: ADVAIR HFA 115/21 MCG INHALER 8 GM IH SCH (21:04)
[2020-04-02] MEDS: FAMOTIDINE 20 MG (PEPCID) TABLET PO SCH (22:25)
[2020-04-02] MEDS: MONTELUKAST 10 MG (SINGULAIR) TAB PO SCH (22:26)
[2020-04-03] MEDS: PROMETHAZINE INJ 25 MG/ML (PHENERGAN) AMP IVP PRN (00:24)
[2020-04-03] MEDS: METOCLOPRAMIDE INJ 10 MG/2 ML (REGLAN) IVP PRN (00:25)
[2020-04-03] MEDS: ALPRAZolam 0.5 MG (XANAX) TAB PO PRN ×2 (01:46→21:53)
[2020-04-03] MEDS: oxyCODONE/APAP 10/325MG (PERCOCET 10) TABLET PO PRN ×3 (02:10→21:53)
[2020-04-03 03:10] LABS: BASOPHILS % (AUTO) 0 % (0-10); EOSINOPHILS % (AUTO) 0 % (0-10); HEMATOCRIT 33 % (35-52); HEMOGLOBIN 10.6 g/dL (11.5-16.0); LYMPHOCYTES # (AUTO) 0.8 10^3/uL (1.0-4.0); LYMPHOCYTES % (AUTO) 11 % (12-44); MEAN CORPUSCULAR HEMOGLOBIN 32 pg (25-34); MEAN CORPUSCULAR HGB CONC 32 g/dL (32-36); MEAN CORPUSCULAR VOLUME 98 fL (80-99); MEAN PLATELET VOLUME 11.4 fL (9.0-12.2); MONOCYTES # (AUTO) 0.4 10^3/uL (0.0-1.0); MONOCYTES % (AUTO) 6 % (0-12); NEUTROPHILS # (AUTO) 5.9 10^3/uL (1.8-7.8); NEUTROPHILS % (AUTO) 82 % (42-75); PLATELET COUNT 114 10^3/uL (130-400); WHITE BLOOD COUNT 7.3 10^3/uL (4.3-11.0)
[2020-04-03 03:28] LABS: CALCIUM 8.4 MG/DL (8.5-10.1); POTASSIUM 5.6 MMOL/L (3.6-5.0)
[2020-04-03] MEDS: inSUlin ASPART (NovoLOG) 1 UNIT/0.01 ML (CHARGE PER UNIT) SC SCH ×4 (04:08→21:56)
--- NOTE | 2020-04-03 04:08 | Pulmonary Progress Note ---
ANDRÉSRUSTAM MED STUDENT 04/03/20 0408: Subjective Date Seen by a Provider: Apr 03, 2020 Time Seen by a Provider: 03:45 Subjective/Events-last exam Patient still nauseous with mild R sided abdominal pain though she notes the RLQ pain has decreased while RUQ has stayed the same. Denies CP, palpitations, SOB, headache, vomiting, constipation, urinary sx or other complaints at this time. Sepsis Event Evaluation Height, Weight, BMI Height: 5'5.00" Weight: 225lbs. 0.0oz. 102.508627nq; 37.00 BMI Method:Estimated Focused Exam Lactate Level 04/02/20 02:32: Lactic Acid Level 2.00 Exam Exam Vital Signs Date Time Temp Pulse Resp B/P (MAP) Pulse Ox O2 Delivery O2 Flow Rate FiO2 04/03/20 00:27 36.6 91 18 161/65 98 Nasal Cannula 2.00 04/03/20 00:00 161/65 Nasal Cannula 2.00 04/02/20 21:04 99 Nasal Cannula 1.50 04/02/20 20:00 96 Nasal Cannula 2.00 04/02/20 20:00 36.8 78 18 132/62 91 04/02/20 19:00 70 04/02/20 17:45 36.6 73 20 142/60 98 Nasal Cannula 2.00 04/02/20 15:00 80 21 150/67 89 Nasal Cannula 1.00 04/02/20 14:00 80 11 149/59 92 Nasal Cannula 1.00 04/02/20 13:00 79 15 149/61 91 Nasal Cannula 1.00 04/02/20 12:22 80 04/02/20 12:00 80 17 156/66 92 Nasal Cannula 1.00 04/02/20 11:55 36.9 04/02/20 11:00 81 18 143/70 94 Nasal Cannula 1.00 04/02/20 10:59 98 Nasal Cannula 0.50 04/02/20 10:08 Nasal Cannula 1.00 04/02/20 10:00 93 19 175/75 93 Room Air 04/02/20 09:00 81 14 147/71 95 Room Air 04/02/20 08:22 36.4 04/02/20 08:19 97 Room Air 04/02/20 08:14 Room Air 04/02/20 08:00 82 22 137/68 100 Nasal Cannula 2.00 04/02/20 07:00 78 20 101/81 100 Nasal Cannula 2.00 04/02/20 07:00 77 04/02/20 06:00 80 17 137/61 98 Nasal Cannula 2.00 04/02/20 05:00 77 19 151/66 99 Nasal Cannula 2.00 I & O 04/03/20 07:00 Intake Total 890 ml Output Total 2100 ml Balance -1210 ml Height & Weight Height: 5'5.00" Weight: 225lbs. 0.0oz. 102.958745ms; 37.00 BMI Method:Estimated General Appearance: No Apparent Distress, WD/WN HEENT: No Scleral Icterus (L), No Scleral Icterus (R) Neck: Normal Inspection, Non Tender; No Carotid Bruit Respiratory: Chest Non Tender, No Accessory Muscle Use, No Respiratory Distress, Wheezing (expiratory bilateral) Cardiovascular: Regular Rate, Rhythm, No Murmur, Normal Peripheral Pulses Capillary Refill: Less Than 3 Seconds Peripheral Pulses: 2+ Carotid (R), 2+ Carotid (L); 1+ Dorsalis Pedis (R), 1+ Left Dors-Pedis (L); 2+ Radial Pulses (R), 2+ Radial Pulses (L) Gastrointestinal: soft, no organomegaly, no pulsatile mass, tenderness (Diffusely over R side); No mass, No hepatomegaly, No spleenomegaly Extremity: Non Tender, No Calf Tenderness, Pedal Edema (mild, 1+ pitting) Neurologic/Psychiatric: Alert, Oriented x3, Normal Mood/Affect; No Aphasia, No Disoriented Skin: Normal Color, Warm/Dry Results Lab Laboratory Tests 04/01/20 04:25 04/02/20 02:15 04/03/20 02:58 Assessment/Plan Assessment/Plan Abdominal pain, RLQ -cxr, KUB ordered -cxr shows central pulmonary vascular congestion with interstitial edema -KUB negative Nausea/Vomiting -Odensetron ordered -Add Phenergan Bradycardia -resolved -Cardiology consulted -Interrogation done: afib yesterday -Rate control medications withheld -monitor vitals -no other intervention recommended at this time -s/p Atropine Acute renal insufficiency -Continue IVF -Cr improving -monitor labs Hyperglycemia -IV Insulin Aspart ordered -resolved SANAZ -currently on 2Lnc with 92% sat -recommend continue use of home CPAP Asthma -no SOB at this time -maintain use of home Levalbuterol To 4th if ok with Dr. Motta. ZIA WU DO 04/03/20 0442: Assessment/Plan Assessment/Plan Abdominal pain, RLQ -cxr, KUB ordered -cxr shows central pulmonary vascular congestion with interstitial edema -KUB negative Hyperkalemia -Will give Lasix 40mg X 1 Nausea/Vomiting -Odensetron ordered - Phenergan Bradycardia -resolved -Cardiology consulted -Interrogation done: afib yesterday -Rate control medications withheld -monitor vitals -no other intervention recommended at this time -s/p Atropine Acute renal insufficiency -monitor labs Hyperglycemia -IV Insulin Aspart ordered -resolved SANAZ -currently on 2Lnc with 92% sat -recommend continue use of home CPAP Asthma -no SOB at this time -maintain use of home Levalbuterol RUSTAM BOWEN MED STUDENT Apr 03, 2020 04:08 ZIA WU DO Apr 03, 2020 04:42
[2020-04-03] MEDS ORDERED: FUROSEMIDE 40 MG/4 ML INJ (LASIX) IVP ONE (04:45)
[2020-04-03] MEDS: PANTOPRAZOLE 40 MG (PROTONIX) VIAL IV SCH (09:00)
[2020-04-03] MEDS: MUPIROCIN 2% OINT 22 GM (BACTROBAN) TUBE NSEACH SCH ×2 (09:00→21:51)
[2020-04-03] MEDS: APIXABAN 5 MG (ELIQUIS) TABLET PO SCH ×2 (09:00→21:42)
[2020-04-03] MEDS: LORATADINE (CLARITIN) 10 MG TAB PO SCH (09:00)
[2020-04-03] MEDS: rOPINIRole 1 MG (REQUIP) TABLET PO SCH ×2 (09:00→21:50)
[2020-04-03] MEDS: GABAPENTIN 300 MG (NEURONTIN) CAP PO SCH ×3 (09:00→21:42)
[2020-04-03] MEDS: buPROPion SR 150 MG (WELLBUTRIN SR) TAB PO SCH ×2 (09:00→22:18)
[2020-04-03] MEDS: DOCUSATE SODIUM 100 MG (COLACE) CAP PO SCH (09:00)
--- NOTE | 2020-04-03 09:32 | Cardiology Progress Note ---
Subjective Date Seen by Provider: Apr 03, 2020 Time Seen by Provider: 09:28 Subjective/Events-last exam Patient is laying down in bed, was eating breakfast today. Denied any chest pain Review of Systems General: No Chills, No Night Sweats; Fatigue, Malaise; No Appetite, No Other HEENT: No Head Aches, No Visual Changes, No Eye Pain, No Ear Pain, No Dysphasia, No Sinus Congestion, No Post Nasal Drip, No Sore Throat, No Other Pulmonary: No Dyspnea, No Cough, No Pleuritic Chest Pain, No Other Cardiovascular: No: Chest Pain, Palpitations, Orthopnea, Paroxysmal Noc. Dyspnea, Edema, Lt Headedness, Other Focused Exam Lactate Level 04/02/20 02:32: Lactic Acid Level 2.00 Objective-Cardiology Exam Last Set of Vital Signs Vital Signs 04/03/20 07:30 Temp 36.7 Pulse 79 Resp 18 B/P (MAP) 149/102 Pulse Ox 96 O2 Delivery Nasal Cannula O2 Flow Rate 2.00 Capillary Refill : Less Than 3 Seconds I&O Intake and Output 04/03/20 00:00 Intake Total 1890 ml Output Total 2550 ml Balance -660 ml Intake Oral 890 ml IV Total 1000 ml Output Urine Total 2550 ml # Bowel Movements 2 # Emeses 3 General: Alert, Oriented X3, Cooperative HEENT: Atraumatic, PERRLA Neck: Supple, No JVD, No Thyromegaly Lungs: Clear to Auscultation, Normal Air Movement Heart: Normal S1, Normal S2, No Murmurs, Other (atrial fibrillation with rapid ventricular response) Abdomen: Normal Bowel Sounds, Soft, No Tenderness, No Hepatosplenomegaly, No Masses Extremities: No Clubbing, No Cyanosis, No Edema, Normal Pulses, No Tenderness/Swelling Skin: No Rashes, No Breakdown, No Significant Lesion Neuro: Normal Speech, Normal Tone, Sensation Intact Psych/Mental Status: Mental Status NL, Mood NL Results Lab Laboratory Tests 04/03/20 02:58 A/P-Cardiology Admission Diagnosis Bradycardia Hypotension PAF HLP Assessment/Plan Symptomatic bradycardia, secondary to medication, heart rate has improved at this time. Had an episode of tachycardia yesterday. I am planning to proceed with DAVI and electrical cardioversion Paroxysmal atrial fibrillation/paroxysmal atrial tachycardia has been seen in the past by Dr. Lr, had ablation done in April 2016, she was maintained on multiple medication including flecainide, diltiazem, Toprol, amiodarone. Patient currently back in atrial fibrillation with rapid ventricular response. I started back low-dose beta blockers and I am planning to proceed with DVAI and electrical cardioversion tomorrow Abdominal pain, nausea and vomiting, managed by primary care team Sick sinus syndrome, history of positive to 4 second on her loop recorder, admitted with severe bradycardia, has been difficult to control. If she continued to have tachycardia/bradycardia episode will consider permanent pacemaker implant [id number] score of 4, yearly risk of stroke without OAC is 4%. Patient is maintained on Eliquis. Mild coronary artery disease per cardiac catheterization nonobstructive disease done in August 2015, continue to monitor. Most recent stress test and 2-D echocardiogram done June 2018 revealed no ischemia or infarct, continue to monitor History of near syncope, patient reports improvement, continue to monitor. 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 management per Dr. Phelps. Mild bilateral carotid stenosis, nonobstructive disease, continue to monitor as outpatient Asthma, followed by Dr. Phelps Peripheral edema, chronic, waxing and waning. Venous insufficiency scan done March 2016 was negative for reflux. Continue to monitor Hypertension, blood pressure is better controlled. Continue to monitor Hyperlipidemia, continue to monitor. Hypothyroidism, followed and managed by primary care physician Maturity-onset diabetes mellitus, followed and managed by primary care physician. Gastric esophageal reflux disease Clinical Quality Measures DVT/VTE Risk/Contraindication: Risk Factor Score Per Nursin RFS Level Per Nursing on Admit: 3=High WINNIE CLEMENTE MD Apr 03, 2020 09:32
--- NOTE | 2020-04-03 10:11 | Progress Note ---
Subjective Subjective Date Seen by Provider: Apr 03, 2020 Time Seen by Provider: 08:45 PT CONTINUES TO COMPLAIN OF NAUSEA - SHE REPORTS THAT ALTHOUGH SHE HAS CHRONIC NAUSEA, THIS IS A LITTLE WORSE THAN USUAL. SHE STATES THAT SHE DID NOT EAT AT ALL YESTERDAY. PER DR. CLEMENTE - HE WAS PLANNING ON A DAVI WITH CARDIOVERSION TODAY - BUT SHE WAS INADVERTENTLY GIVEN A BREAKFAST TRAY THIS MORNING. Review of Systems General: No Chills, No Night Sweats; Fatigue, Malaise; No Appetite, No Other HEENT: No Head Aches, No Visual Changes, No Eye Pain, No Ear Pain, No Dysphasia, No Sinus Congestion, No Post Nasal Drip, No Sore Throat, No Other Pulmonary: No Dyspnea, No Cough, No Pleuritic Chest Pain, No Other Cardiovascular: Palpitations; No: Chest Pain, Orthopnea, Paroxysmal Noc. Dyspnea, Edema, Lt Headedness, Other Gastrointestinal: Nausea, Abdominal Pain; No: Vomiting Genitourinary: No Dysuria, No Hematuria Musculoskeletal: No: leg pain, foot pain Neurological: Weakness; No: Change in speech, Confusion All Other Systems Reviewed All Other Systems Reviewed: Yes Objective Exam Vital Signs Vital Signs - First Documented Capillary Refill : Less Than 3 Seconds General Appearance: No Apparent Distress, WD/WN Eyes: Bilateral Eye Normal Inspection, Bilateral Eye PERRL, Bilateral Eye EOMI HEENT: No Scleral Icterus (L), No Scleral Icterus (R) Neck: Normal Inspection, Non Tender; No Carotid Bruit Respiratory: Chest Non Tender, Lungs Clear, Normal Breath Sounds, No Accessory Muscle Use, No Respiratory Distress, Wheezing (Trace expiratory bilateral) Cardiovascular: No Murmur, Normal Peripheral Pulses, Tachycardia Gastrointestinal: Normal Bowel Sounds, Non Tender, Soft Rectal: Deferred Back: Normal Inspection, No CVA Tenderness, No Vertebral Tenderness Extremity: Non Tender, No Calf Tenderness, Pedal Edema (mild, 1+ pitting) Neurologic/Psychiatric: Alert, Oriented x3, Normal Mood/Affect; No Aphasia, No Disoriented Skin: Normal Color, Warm/Dry Lymphatic: No Adenopathy Results Lab Laboratory Tests 04/02/20 10:18: Glucometer 128H 04/02/20 11:05: Urine Color YELLOW, Urine Clarity CLEAR, Urine pH 5.5, Urine Specific [place] <=1.005, Urine Protein NEGATIVE, Urine Glucose (UA) NEGATIVE, Urine Ketones NEGATIVE, Urine Nitrite NEGATIVE, Urine Bilirubin NEGATIVE, Urine Urobilinogen 0.2, Urine Leukocyte Esterase TRACEH, Urine RBC (Auto) 3+H, Urine RBC 25-50H, Urine WBC 0-2, Urine Crystals NONE, Urine Bacteria NEGATIVE, Urine Casts NONE, Urine Mucus NEGATIVE, Urine Culture Indicated NO 04/02/20 16:03: Glucometer 164H 04/02/20 21:04: Glucometer 158H 04/03/20 02:58: White Blood Count 7.3, Red Blood Count 3.37L, Hemoglobin 10.6L, Hematocrit 33L, Mean Corpuscular Volume 98, Mean Corpuscular Hemoglobin 32, Mean Corpuscular Hemoglobin Concent 32, Red Cell Distribution Width 13.9, Platelet Count 114L, Mean Platelet Volume 11.4, Immature Granulocyte % (Auto) 1, Neutrophils (%) (Auto) 82H, Lymphocytes (%) (Auto) 11L, Monocytes (%) (Auto) 6, Eosinophils (%) (Auto) 0, Basophils (%) (Auto) 0, Neutrophils # (Auto) 5.9, Lymphocytes # (Auto) 0.8L, Monocytes # (Auto) 0.4, Eosinophils # (Auto) 0.0, Basophils # (Auto) 0.0, Immature Granulocyte # (Auto) 0.1, Sodium Level 141, Potassium Level 5.6H, Chloride Level 104, Carbon Dioxide Level 24, Anion Gap 13, Blood Urea Nitrogen 20H, Creatinine 1.00, Estimat Glomerular Filtration Rate 55, BUN/Creatinine Ratio 20, Glucose Level 152H, Calcium Level 8.4L Microbiology 03/31/20 MRSA Screen - Final, Complete Assessment/Plan Assessment/Plan Admission Dx NEAR SYNCOPE BRADYCARDIA SEVERE HYPOTENSION CHRONIC ATRIAL FIBRILLATION HX OF ABLATION CORONARY ARTERY DISEASE CHRONIC HYPERTENSION DIABETES MELLITUS DEPRESSION ANXIETY STAGE 2 RENAL DISEASE CHRONIC ANTICOAGULATION WITH NOAC CHRONIC PAIN SYNDROME PERIPHERAL NEUROPATHY DUE TO DIABETES MELLITUS GOUT IRON DEFICIENCY ANEMIA ESOPHAGEAL REFLUX SEASONAL ALLERGIES Assessment and Plan NEAR SYNCOPE BRADYCARDIA SEVERE HYPOTENSION CHRONIC ATRIAL FIBRILLATION HX OF ABLATION CORONARY ARTERY DISEASE CHRONIC HYPERTENSION DIABETES MELLITUS DEPRESSION ANXIETY STAGE 2 RENAL DISEASE CHRONIC ANTICOAGULATION WITH NOAC CHRONIC PAIN SYNDROME PERIPHERAL NEUROPATHY DUE TO DIABETES MELLITUS GOUT IRON DEFICIENCY ANEMIA ESOPHAGEAL REFLUX SEASONAL ALLERGIES NEAR SYNCOPE DUE TO BRADYCARDIA AND SEVERE HYPOTENSION - NOW RESOLVED - DEFER TO DR. CLEMENTE - - PT'S HEART RATE INTERMITTENTLY RAPID - HE HAS PLANS FOR DAVI WITH CARDIOV ERSION WHILE SHE IS IN THE HOSPITAL. - PT ON CHRONIC ANTICOAGULATION - SUPPORTIVE CARE AT THIS TIME, WILL HOLD CURRENT MEDS EXCEPT FOR ELIQUIS. CHRONIC HYPERTENSION - HOLDING HOME REGIMEN - MEDICATIONS TO BE ADJUSTED FOR APPROPRIATE RATE CONTROL AND BP SUPPORT. DIABETES MELLITUS - RESUMED HOME REGIMEN, MONITOR FSBS CLOSELY DEPRESSION AND ANXIETY - RESUMED HOME MEDICATIONS ONCE RECONCILIATION IS COMPLETED STAGE 2 RENAL DISEASE - SUPPORTIVE CARE, FLUIDS IMPROVED RENAL FUNCTION FROM ADMISSION OF 2 DOWN TO 1.75 CHRONIC PAIN SYNDROME - RESUMED HOME REGIMEN OF PRN USE OF MEDICATION. PERIPHERAL NEUROPATHY DUE TO DIABETES MELLITUS -RESTARTED GABAPENTIN. GOUT - SUPPORTIVE CARE,MONITOR SYMPTOMS. IRON DEFICIENCY ANEMIA - HOLD ORAL IRON RIGHT NOW. ESOPHAGEAL REFLUX WITH POSSIBLE GASTROPARESIS START REGLAN 2.5MG QID ADD CARAFATE QID - RESUMED PPI SEASONAL ALLERGIES - HOLD MEDICATIONS, MONITOR SYMPTOMS. Admission Dx NEAR SYNCOPE BRADYCARDIA SEVERE HYPOTENSION CHRONIC ATRIAL FIBRILLATION HX OF ABLATION CORONARY ARTERY DISEASE CHRONIC HYPERTENSION DIABETES MELLITUS DEPRESSION ANXIETY STAGE 2 RENAL DISEASE CHRONIC ANTICOAGULATION WITH NOAC CHRONIC PAIN SYNDROME PERIPHERAL NEUROPATHY DUE TO DIABETES MELLITUS GOUT IRON DEFICIENCY ANEMIA ESOPHAGEAL REFLUX SEASONAL ALLERGIES Clinical Quality Measures Admission Status Admission Dx NEAR SYNCOPE BRADYCARDIA SEVERE HYPOTENSION CHRONIC ATRIAL FIBRILLATION HX OF ABLATION CORONARY ARTERY DISEASE CHRONIC HYPERTENSION DIABETES MELLITUS DEPRESSION ANXIETY STAGE 2 RENAL DISEASE CHRONIC ANTICOAGULATION WITH NOAC CHRONIC PAIN SYNDROME PERIPHERAL NEUROPATHY DUE TO DIABETES MELLITUS GOUT IRON DEFICIENCY ANEMIA ESOPHAGEAL REFLUX SEASONAL ALLERGIES DVT/VTE Risk/Contraindication: Risk Factor Score Per Nursin RFS Level Per Nursing on Admit: 3=High DAISY JOHNSON MD Apr 03, 2020 10:11
[2020-04-03] MEDS: ADVAIR HFA 115/21 MCG INHALER 8 GM IH SCH ×2 (11:39→23:41)
--- NOTE | 2020-04-03 14:53 | NUR ---
ESTEFANÍA/ТАТЬЯНА discharge planning. Plan: Patient will discharge back to [facility] either 04/04 or 04/05. [facility]: ESTEFANÍA/SS contacted facility to set up discharge and spoke with DAE Mae. He reports that he would need to verify they can accept patient's back on a weekend with his [facility]. ESTEFANÍA/SS faxed updated clinical. Tu contacted this sw back and asked if we could keep the patient until Monday due to them not having a weekend nurse. CM/SS contacted Dr. Motta to discuss discharge plans. Dr. Motta contacted [facility] and spoke with Tu to inform him that if the patient is medically ready we will need to discharge back to her home due to limited beds at the hospital. Tu verbalized understanding. No further needs at this time.
[2020-04-03] MEDS: METOCLOPRAMIDE 5 MG (REGLAN) TAB PO SCH ×2 (16:20→21:43)
[2020-04-03] MEDS: SUCRALFATE 1 GM (CARAFATE) TAB PO SCH ×2 (16:21→21:50)
[2020-04-03] MEDS: MONTELUKAST 10 MG (SINGULAIR) TAB PO SCH (21:42)
[2020-04-03] MEDS: FAMOTIDINE 20 MG (PEPCID) TABLET PO SCH (21:50)
--- NOTE | 2020-04-03 22:13 | NUR ---
PATIENT'S BLOOD SUGAR 131. PATIENT STATES THAT SHE "DOES NOT WANT TO BOTTOM OUT" THROUGHOUT THE NIGHT. PATIENT RECEIVED 15 UNITS OF LEVEMIR PRIOR TO SHIFT CHANGE. PATIENT REFUSED ADDITIONAL 15 UNITS OF LEVEMIR THAT WERE ORDERED. DR. TRAMMELL NOTIFIED OF SITUATION.
[2020-04-04 05:03] LABS: BASOPHILS # (AUTO) 0.1 10^3/uL (0.0-0.1); BASOPHILS % (AUTO) 1 % (0-10); EOSINOPHILS # (AUTO) 0.1 10^3/uL (0.0-0.3); EOSINOPHILS % (AUTO) 1 % (0-10); HEMATOCRIT 34 % (35-52); HEMOGLOBIN 10.8 g/dL (11.5-16.0); LYMPHOCYTES # (AUTO) 1.8 10^3/uL (1.0-4.0); LYMPHOCYTES % (AUTO) 24 % (12-44); MEAN CORPUSCULAR HEMOGLOBIN 31 pg (25-34); MEAN CORPUSCULAR HGB CONC 32 g/dL (32-36); MEAN CORPUSCULAR VOLUME 99 fL (80-99); MEAN PLATELET VOLUME 10.7 fL (9.0-12.2); MONOCYTES # (AUTO) 0.7 10^3/uL (0.0-1.0); MONOCYTES % (AUTO) 9 % (0-12); NEUTROPHILS % (AUTO) 65 % (42-75); PLATELET COUNT 145 10^3/uL (130-400); WHITE BLOOD COUNT 7.7 10^3/uL (4.3-11.0)
[2020-04-04 05:21] LABS: POTASSIUM 3.7 MMOL/L (3.6-5.0)
[2020-04-04 05:23] LABS: CALCIUM 8.5 MG/DL (8.5-10.1)
[2020-04-04 05:27] LABS: CREATININE SERUM 0.96 MG/DL (0.60-1.30)
[2020-04-04] MEDS: inSUlin ASPART (NovoLOG) 1 UNIT/0.01 ML (CHARGE PER UNIT) SC SCH ×2 (05:43→11:12)
[2020-04-04] MEDS: METOCLOPRAMIDE 5 MG (REGLAN) TAB PO SCH ×2 (06:01→12:04)
[2020-04-04] MEDS: SUCRALFATE 1 GM (CARAFATE) TAB PO SCH ×2 (06:01→12:04)
[2020-04-04] MEDS: DOCUSATE SODIUM 100 MG (COLACE) CAP PO SCH (09:25)
[2020-04-04] MEDS: rOPINIRole 1 MG (REQUIP) TABLET PO SCH (09:25)
[2020-04-04] MEDS: MUPIROCIN 2% OINT 22 GM (BACTROBAN) TUBE NSEACH SCH (09:26)
[2020-04-04] MEDS: PANTOPRAZOLE 40 MG (PROTONIX) VIAL IV SCH (09:26)
[2020-04-04] MEDS: GABAPENTIN 300 MG (NEURONTIN) CAP PO SCH (09:26)
[2020-04-04] MEDS: LORATADINE (CLARITIN) 10 MG TAB PO SCH (09:26)
[2020-04-04] MEDS: buPROPion SR 150 MG (WELLBUTRIN SR) TAB PO SCH (09:26)
[2020-04-04] MEDS: oxyCODONE/APAP 10/325MG (PERCOCET 10) TABLET PO PRN (09:27)
[2020-04-04] MEDS: APIXABAN 5 MG (ELIQUIS) TABLET PO SCH (09:29)
[2020-04-04] MEDS ORDERED: AMIODARONE 200 MG (CORDARONE) TAB PO SCH ×2 (09:45→21:00)
--- NOTE | 2020-04-04 09:55 | Cardiology Progress Note ---
Subjective Date Seen by Provider: Apr 04, 2020 Time Seen by Provider: 09:53 Subjective/Events-last exam Patient is laying down in bed, feeling better at this time. No new complaint Review of Systems General: No Chills, No Night Sweats; Fatigue, Malaise; No Appetite, No Other HEENT: No Head Aches, No Visual Changes, No Eye Pain, No Ear Pain, No Dysphasia, No Sinus Congestion, No Post Nasal Drip, No Sore Throat, No Other Pulmonary: Dyspnea; No Cough, No Pleuritic Chest Pain, No Other Cardiovascular: No: Chest Pain, Palpitations, Orthopnea, Paroxysmal Noc. Dyspnea, Edema, Lt Headedness, Other Focused Exam Lactate Level 04/02/20 02:32: Lactic Acid Level 2.00 Objective-Cardiology Exam Last Set of Vital Signs Vital Signs 04/04/20 08:00 Temp 36.3 Pulse 63 Resp 18 B/P (MAP) 139/65 Pulse Ox 97 O2 Delivery Nasal Cannula O2 Flow Rate 2.00 Capillary Refill : Less Than 3 Seconds I&O Intake and Output 04/04/20 00:00 Intake Total 1150 ml Output Total 1915 ml Balance -765 ml Intake Oral 1150 ml Output Urine Total 1915 ml General: Alert, Oriented X3, Cooperative HEENT: Atraumatic, PERRLA Neck: Supple, No JVD, No Thyromegaly Lungs: Clear to Auscultation, Normal Air Movement Heart: Regular Rate, Normal S1, Normal S2, No Murmurs Abdomen: Normal Bowel Sounds, Soft, No Tenderness, No Hepatosplenomegaly, No Masses Extremities: No Clubbing, No Cyanosis, No Edema, Normal Pulses, No Tenderness/Swelling Skin: No Rashes, No Breakdown, No Significant Lesion Neuro: Normal Speech, Normal Tone, Sensation Intact Psych/Mental Status: Mental Status NL, Mood NL Results Lab Laboratory Tests 04/04/20 04:45 A/P-Cardiology Admission Diagnosis Bradycardia Hypotension PAF HLP Assessment/Plan Symptomatic bradycardia, secondary to medication, paroxysmal atrial fibrillation back to sinus rhythm. I will restart amiodarone at this time and monitor tolerance and response Paroxysmal atrial fibrillation/paroxysmal atrial tachycardia has been seen in the past by Dr. Lr, had ablation done in April 2016, she was maintained on multiple medication including flecainide, diltiazem, Toprol, amiodarone. Converted back to sinus rhythm, I will restart amiodarone and low-dose metoprolol and keep her off diltiazem and flecainide Abdominal pain, nausea and vomiting, reporting improvement. Continue to monitor Sick sinus syndrome, history of positive to 4 second on her loop recorder, admitted with severe bradycardia, has been difficult to control. If she continued to have tachycardia/bradycardia episode will consider permanent pacemaker implant [id number] score of 4, yearly risk of stroke without OAC is 4%. Patient is maintained on Eliquis. Mild coronary artery disease per cardiac catheterization nonobstructive disease done in August 2015, continue to monitor. Most recent stress test and 2-D echocardiogram done June 2018 revealed no ischemia or infarct, continue to monitor History of near syncope, patient reports improvement, continue to monitor. 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 management per Dr. Phelps. Mild bilateral carotid stenosis, nonobstructive disease, continue to monitor as outpatient Asthma, followed by Dr. Phelps Peripheral edema, chronic, waxing and waning. Venous insufficiency scan done March 2016 was negative for reflux. Continue to monitor Hypertension, blood pressure is better controlled. Continue to monitor Hyperlipidemia, continue to monitor. Hypothyroidism, followed and managed by primary care physician Maturity-onset diabetes mellitus, followed and managed by primary care physician. Gastric esophageal reflux disease Okay for discharge from cardiology standpoint and follow-up in my office in 2 weeks Clinical Quality Measures DVT/VTE Risk/Contraindication: Risk Factor Score Per Nursin RFS Level Per Nursing on Admit: 3=High WINNIE CLEMENTE MD Apr 04, 2020 09:55
[2020-04-04] MEDS ORDERED: PROM25AM2 IVP (09:58)
[2020-04-04] MEDS ORDERED: MTP25TSR PO (09:58)
[2020-04-04] MEDS ORDERED: AMIO200T6 PO (09:58)
--- NOTE | 2020-04-04 12:32 | NUR ---
ATTEMPTED TO CALL REPORT TO [facility]. THEY TOOK MY NUMBER AND WILL HAVE THE NURSE CALL ME BACK. HE IS NOT THERE BECAUSE THEY DON'T WANT TO TAKE HER BACK OVER THE WEEKEND..
--- NOTE | 2020-04-04 12:44 | Discharge Summary ---
Discharge Summary Hospital Course Was the Problem List Reviewed?: Yes Hospital Course Date of Admission: Mar 31, 2020 at 16:46 Admission Diagnosis : Family Physician/Provider: Mimi Mejia Dpm Date of Discharge: 04/04/20 Discharge Diagnosis: NEAR SYNCOPE- BRADYCARDIA--resolved SEVERE HYPOTENSION--improved CHRONIC ATRIAL FIBRILLATION--converted back to NSR HX OF ABLATION CORONARY ARTERY DISEASE--stable CHRONIC HYPERTENSION--stable DIABETES MELLITUS--insulin requiring DEPRESSION--stable ANXIETY STAGE 2 RENAL DISEASE--Cr stable CHRONIC ANTICOAGULATION WITH NOAC- CHRONIC PAIN SYNDROME PERIPHERAL NEUROPATHY DUE TO DIABETES MELLITUS Hospital Course: This is a 69 year old female resident of [facility] brought to the hospital due to bradycardia and hypotension. She was admitted to the cardiac care unit and hydrated and cardiology was consulted. Her bradycardia and hypotension resolved but she was having intermittent episodes of RVR. Her medications were adjusted to amiddarone as well as low dose metoprolol. A DAVI with cardioversion was planned but the patient converted back to a NSR on her own. She also had ongoig nausea issues which are chronic for this patient so reglan as well as sucralfate were added. At this time she has no chest pain, no palpitations and no shortness of air and she has had no nausea or vomiting in the last 24hours. She is stable to be discharged back to the [facility] facility with medication adjustments. Labs and Pending Lab Test: Laboratory Tests 04/03/20 16:16: Glucometer 90 04/03/20 21:29: Glucometer 131H 04/04/20 04:45: White Blood Count 7.7, Red Blood Count 3.46L, Hemoglobin 10.8L, Hematocrit 34L, Mean Corpuscular Volume 99, Mean Corpuscular Hemoglobin 31, Mean Corpuscular Hemoglobin Concent 32, Red Cell Distribution Width 13.7, Platelet Count 145, Mean Platelet Volume 10.7, Immature Granulocyte % (Auto) 1, Neutrophils (%) (Aut o) 65, Lymphocytes (%) (Auto) 24, Monocytes (%) (Auto) 9, Eosinophils (%) (Auto) 1, Basophils (%) (Auto) 1, Neutrophils # (Auto) 5.0, Lymphocytes # (Auto) 1.8, Monocytes # (Auto) 0.7, Eosinophils # (Auto) 0.1, Basophils # (Auto) 0.1, Immature Granulocyte # (Auto) 0.0, Sodium Level 141, Potassium Level 3.7, Chloride Level 100, Carbon Dioxide Level 29, Anion Gap 12, Blood Urea Nitrogen 23H, Creatinine 0.96, Estimat Glomerular Filtration Rate 58, BUN/Creatinine Ratio 24, Glucose Level 101, Calcium Level 8.5 04/04/20 10:34: Glucometer 165H Microbiology 03/31/20 MRSA Screen - Final, Complete Home Meds Active Metoprolol Succinate 25 Mg Tab.er.24h 25 Mg PO DAILY Amiodarone HCl 200 Mg Tablet 200 Mg PO DAILY Reported Levocetirizine Dihydrochloride 5 Mg Tablet 5 Mg PO DAILY Famotidine 40 Mg Tablet 40 Mg PO 2000 Colace (Docusate Sodium) 100 Mg Capsule 100 Mg PO DAILY Nyamyc (Nystatin) 15 Gm Powder 1 Applic TOP QID PRN APPLY TO [place] Saline Nasal Gel (Sodium Chloride/Aloe Vera) 14.1 Gm Gel..gram. 1 Applic NA HS Azelastine HCl 137 Mcg/0.137 Ml Mulino.pump 1 Mulino NA TID Aripiprazole 2 Mg Tablet 2 Mg PO 2000 Bupropion Xl (Bupropion HCl) 300 Mg Tab.er.24h 300 Mg PO DAILY Allopurinol 100 Mg Tablet 100 Mg PO DAILY Calcium (Calcium Carbonate) 500 Mg Tablet 1,000 Mg PO DAILY Vitamin D3 (Cholecalciferol (Vitamin D3)) 125 Mcg Tablet 125 Mcg PO DAILY Neurontin (Gabapentin) 300 Mg Capsule 900 Mg PO TID TAKES 3 (300MG) CAPS Pantoprazole Sodium 20 Mg Tablet.dr 20 Mg PO DAILY Insulin Lispro Kwikpen U-100 (Insulin Lispro) 100 Unit/1 Ml Insuln.pen Units SC TIDWM 8 UNITS EACH MEAL WITH SLIDING SCALE: 150-200=1 UNIT 201-250=2 UNITS 251-300=3 UNITS 301-350=4 UNITS 351-400=6 UNITS 400+=6 UNITS Albuterol Sulfate 2.5 Mg/3 Ml Vial.neb 2.5 Mg NEB Q4- 6H PRN Tylenol (Acetaminophen) 325 Mg Capsule 325-650 Mg PO Q6H PRN Fluticasone Propionate 16 Gm Mulino.susp 1 Mulino NSEACH BID Montelukast Sodium 10 Mg Tablet 10 Mg PO HS Fluticasone-Salmeterol 250-50 (Fluticasone Propion/Salmeterol) 1 Each Blst.w.dev 1 Puff INH BID Zofran (Ondansetron HCl) 4 Mg Tab 4 Mg PO Q4H PRN Xopenex (Levalbuterol HCl) 1.25 Mg/3 Ml Vial.neb 1.25 Mg NEB Q6H PRN Toujeo Solostar (Insulin Glargine,Hum.rec.anlog) 300 Unit/1 Ml Insuln.pen 30 Unit SQ HS Potassium Chloride 20 Meq Tablet.er 20 Meq PO DAILY Ferrous Sulfate 325 Mg Tablet 325 Mg PO DAILY Oxycodone-Acetaminophen 10-325 (Oxycodone HCl/Acetaminophen) 1 Each Tablet 1 Ea PO QID PRN Furosemide 40 Mg Tablet 40 Mg PO 0800,1100 Ropinirole HCl 1 Mg Tablet 1 Mg PO BID Alprazolam 0.5 Mg Tablet 0.5 Mg PO BID PRN Eliquis (Apixaban) 5 Mg Tablet 5 Mg PO BID Colestipol HCl 1 Gm Tablet 1 Gm PO BID Cyclobenzaprine HCl 10 Mg Tablet 10 Mg PO Q8H PRN Assessment/Pt Instructions NEAR SYNCOPE- BRADYCARDIA--resolved SEVERE HYPOTENSION--improved CHRONIC ATRIAL FIBRILLATION--converted back to NSR HX OF ABLATION CORONARY ARTERY DISEASE--stable CHRONIC HYPERTENSION--stable DIABETES MELLITUS--insulin requiring DEPRESSION--stable ANXIETY STAGE 2 RENAL DISEASE--Cr stable CHRONIC ANTICOAGULATION WITH NOAC- CHRONIC PAIN SYNDROME PERIPHERAL NEUROPATHY DUE TO DIABETES MELLITUS Discharge Planning: <30 minutes discharge planning Discharge Instructions Discharge Diet: Cardiac Diet Activity as Tolerated: Yes Discharge Physical Examination Vital Signs Vital Signs Date Time Temp Pulse Resp B/P (MAP) Pulse Ox O2 Delivery O2 Flow Rate FiO2 04/04/20 08:00 36.3 63 18 139/65 97 Nasal Cannula 2.00 General Appearance: No Apparent Distress Respiratory: Lungs Clear Cardiovascular: Regular Rate, Rhythm, Systolic Murmur Gastrointestinal: Normal Bowel Sounds, Non Tender, Soft Extremity: Non Tender, No Calf Tenderness, No Pedal Edema Skin: Warm/Dry Neurologic/Psychiatric: Alert, Oriented x3 Allergies: Coded Allergies: Penicillins (Verified Allergy, Severe, SWELLING, HIVES, THROAT SWELLED, 01/21/16) PATIENT HAS RECEIVED CEFEPIME WITHOUT ISSUE Sulfa (Sulfonamide Antibiotics) (Verified Allergy, Severe, TONGUE SWELLED, 01/21/16) Tetanus & Diphtheria Tox,Adult (Verified Allergy, Severe, SWELLING OF THROAT, 01/21/16) codeine (Verified Allergy, Unknown, HAS RECEIVED LORTAB IN THE PAST, 01/21/16) egg (Unverified Allergy, Unknown, 06/29/16) FROM UNCODED ALLERGIES Discharge Summary Date of Admission Mar 31, 2020 at 16:46 Date of Discharge Clinical Quality Measures DVT/VTE Risk/Contraindication: Risk Factor Score Per Nursin RFS Level Per Nursing on Admit: 3=High EMIR ROBERTO DO Apr 04, 2020 12:44
[2020-04-04] MEDS ORDERED: SUCR1TAB PO (12:45)
[2020-04-04 13:45] VITALS: BP 115/55
== END 2020-04-04 13:45 | disposition designated cancer center or children's hospital (05) | DRG 309 ==
LOC: EDUNIT# 14:38 → ER 14:40 → ICU 16:46 → CSD 04-03 06:59 → ICU 04-03 07:34 → 4TH 04-03 16:41
PROVIDERS: ADMIT Family Medicine; ATTEND Family Medicine
DX: R00.1 Bradycardia, unspecified (principal); I13.0 Hypertensive heart and chronic kidney disease with heart failure and stage 1 through stage 4 chronic kidney disease, or unspecified chronic kidney disease; I95.9 Hypotension, unspecified; I48.20 Chronic atrial fibrillation, unspecified; R55 Syncope and collapse; J44.9 Chronic obstructive pulmonary disease, unspecified; J30.2 Other seasonal allergic rhinitis; E66.9 Obesity, unspecified; I25.10 Atherosclerotic heart disease of native coronary artery without angina pectoris; E11.42 Type 2 diabetes mellitus with diabetic polyneuropathy; E11.65 Type 2 diabetes mellitus with hyperglycemia; G89.4 Chronic pain syndrome; D50.9 Iron deficiency anemia, unspecified; K21.9 Gastro-esophageal reflux disease without esophagitis; I13.10 Hypertensive heart and chronic kidney disease without heart failure, with stage 1 through stage 4 chronic kidney disease, or unspecified chronic kidney disease; N18.2 Chronic kidney disease, stage 2 (mild); I50.9 Heart failure, unspecified; R00.8 Other abnormalities of heart beat; G47.30 Sleep apnea, unspecified; E78.00 Pure hypercholesterolemia, unspecified; M79.7 Fibromyalgia; M19.91 Primary osteoarthritis, unspecified site; M54.9 Dorsalgia, unspecified; F41.9 Anxiety disorder, unspecified; F32.9 Major depressive disorder, single episode, unspecified; E03.9 Hypothyroidism, unspecified; K58.9 Irritable bowel syndrome, unspecified; K57.90 Diverticulosis of intestine, part unspecified, without perforation or abscess without bleeding; T40.3X5A Adverse effect of methadone, initial encounter; G51.0 Bell's palsy; Z99.81 Dependence on supplemental oxygen; Z79.4 Long term (current) use of insulin; Z68.38 Body mass index [BMI] 38.0-38.9, adult; Z79.01 Long term (current) use of anticoagulants
CPT/HCPCS: 36415; 71045; 74018; 80048; 80053; 80061; 80162; 81000; 82962; 83605; 83735; 83874; 83880; 84100; 84484; 85025; 85610; 85730; 87081; 93005; 93041; 94640

== ENCOUNTER → 2020-08-28 | Outpatient (CLI) | payer MEDICARE ==
[~2020-08-28] MED LIST changes: +ACET325C7 PO; +ALBU2.5V4 NEB; +ALLO100T PO; +AMIO200T6 PO; +ARIP2TAB20 PO; +AZEL137S11; +BUPR300T98 PO; +CALC-823 PO; +CHOL500044 PO; +DOCU-143 PO; +FAMO40TA6 PO; +FLUT1BLS12 INH; +INSU100I48 SC; +LEVO5TAB12 PO; +LISI2.5T PO; -MONT10TA26 PO; +MONT10TA32 PO; +NYST15PO2 TOP; +PANT20TA18 PO; +PROM25AM2 IVP; +SODI0.5GEL
== END ==
LOC: CARD 09:18
PROVIDERS: ATTEND Physician Assistant
DX: I25.10 Atherosclerotic heart disease of native coronary artery without angina pectoris (principal)
CPT/HCPCS: 93306

== ENCOUNTER → 2020-09-23 | Outpatient (CLI) | payer MEDICARE ==
[~2020-09-23] VITALS: Ht 157 cm; Wt 93.0 kg
[~2020-09-23] MED LIST changes: +ACYC-112 PO; -ACYC800T PO; +CATHETER FLUSH 10 ML SYR IV PRN; -DRON400T2 PO; +DRON400T6 PO; +REGADENOSON 0.4 MG/5 ML SYR (LEXISCAN) IV ONE
[2020-09-23 09:16] VITALS: BP 137/68
--- NOTE | 2020-09-23 14:44 | Cardiology Stress Test Report ---
Stress Test Report Date of Procedure/Referring: Date of Procedure: September 23, 2020 Nancie Batres Admitting Physician Tessie Motta MD Indications: CAD Baseline Heart Rate: 65 Baseline Blood Pressure: Blood Pressure Systolic: 137 Blood Pressure Diastolic: 68 Baseline Vitals Vital Signs Date Time Temp Pulse Resp B/P (MAP) Pulse Ox O2 Delivery O2 Flow Rate FiO2 09/23/20 09:16 67 137/68 (91) 99 Baseline EKG: Baseline EKG: NSR Summary After explaining the procedure to the patient, she signed a consent and then brought to the stress nuclear laboratory. Patient received 0.4 mg Lexiscan for stress test, ECG, heart rate and blood pressure were monitored continuously. Resting and stress dose of radio tracer were injected, imaging was acquired and reviewed in short axis, horizontal long axis and vertical long axis views. TID: 1.06 SSS: 17 SDS: 10 EF: 89 1. Patient tolerated Lexiscan well 2. Breast attenuation with reversible ischemia involving the whole anterior wall and anterolateral wall 3. Normal left ventricular size, EF 89% WINNIE CLEMENTE MD September 23, 2020 14:44
== END ==
LOC: CARD 08:30
PROVIDERS: ATTEND Physician Assistant
DX: I25.10 Atherosclerotic heart disease of native coronary artery without angina pectoris (principal)
CPT/HCPCS: 78452; 93017; A9502

== ENCOUNTER 2020-09-30 10:31 | Day surgery (SDC) | payer MEDICARE ==
[~2020-09-30] VITALS: Ht 157.5 cm; Wt 95.8 kg
[2020-09-30] VITALS (9 sets, daily range): BP systolic 108–149; BP diastolic 53–76
[~2020-09-30 10:31] MED LIST changes: -CATHETER FLUSH 10 ML SYR IV PRN; -REGADENOSON 0.4 MG/5 ML SYR (LEXISCAN) IV ONE
[2020-09-30] MEDS ORDERED: LIDOCAINE 1% INJ 20 ML 20 ML VIAL ONE (10:37)
[2020-09-30] MEDS ORDERED: NS IV 1000 ML 1,000 ML ONE (10:37)
[2020-09-30] MEDS ORDERED: HEParin (CATH LAB) 2,000 ML IV ONE (10:37)
[2020-09-30] MEDS ORDERED: NS IV 1000 ML 1,000 ML IV SCH ×3 (10:45→13:45)
[2020-09-30 11:20] LABS: HEMATOCRIT 40 % (35-52); MEAN CORPUSCULAR HEMOGLOBIN 29 pg (25-34); MEAN CORPUSCULAR HGB CONC 30 g/dL (32-36); MEAN CORPUSCULAR VOLUME 95 fL (80-99); MEAN PLATELET VOLUME 10.8 fL (9.0-12.2); PLATELET COUNT 215 10^3/uL (130-400); WHITE BLOOD COUNT 7.3 10^3/uL (4.3-11.0)
--- NOTE | 2020-09-30 11:24 | Diagnostic Imaging Report ---
INDICATION: Chest pain and abnormal stress test. Time of exam 11:20 AM Correlation is made prior chest from 05/10/2020. Heart is enlarged. There is monitoring device overlying the left lung base. Lungs are clear. No infiltrate or failure is detected. There is no effusion or pneumothorax. IMPRESSION: No acute cardiopulmonary process is detected. Dictated by: Dictated on workstation # [id number]
[2020-09-30 11:39] LABS: ALBUMIN 4.3 GM/DL (3.2-4.5); BILIRUBIN,TOTAL 0.4 MG/DL (0.1-1.0); CALCIUM 9.1 MG/DL (8.5-10.1); CREATININE SERUM 1.15 MG/DL (0.60-1.30); POTASSIUM 4.4 MMOL/L (3.6-5.0)
[2020-09-30] MEDS ORDERED: LEVO5TAB28 PO (11:59)
[2020-09-30] MEDS ORDERED: FLUT1DIS26 IH (11:59)
[2020-09-30] MEDS ORDERED: FURO40TA4 PO (11:59)
[2020-09-30] MEDS ORDERED: CARB15DR3 OU (11:59)
[2020-09-30] MEDS ORDERED: LEVO25TA2 PO (11:59)
[2020-09-30] MEDS ORDERED: SUCR1ORA5 PO (11:59)
[2020-09-30] MEDS ORDERED: MTP25TSR PO (11:59)
[2020-09-30] MEDS ORDERED: AMIO200T6 PO (11:59)
[2020-09-30] MEDS ORDERED: ZFR20T PO (11:59)
[2020-09-30] MEDS ORDERED: BUPR300T43 PO (11:59)
[2020-09-30] MEDS ORDERED: GUAI600T43 PO (11:59)
[2020-09-30] MEDS ORDERED: POTA-51 PO (11:59)
[2020-09-30] MEDS ORDERED: ONDA4TAB11 PO (12:12)
[2020-09-30] MEDS ORDERED: CNC1KV IM (12:12)
[2020-09-30] MEDS ORDERED: MIDAZOLAM 5 MG/5 ML (VERSED) VIAL ONE (12:22)
[2020-09-30] MEDS ORDERED: fentaNYL INJ 100 MCG/2 ML AMP ONE (12:22)
[2020-09-30] MEDS ORDERED: VERAPAMIL 5 MG/2 ML (CALAN) VIAL IV ONE (12:28)
[2020-09-30] MEDS ORDERED: HEParin 1000 UNIT/ML (10ML VIAL) FOR BOLUS ONE (12:28)
[2020-09-30] MEDS ORDERED: NITRO DRIP 25000 MCG/D5W 250 ML IV ONE (12:29)
--- NOTE | 2020-09-30 13:36 | Discharge Inst-Post CATH ---
Discharge Inst-CATH/EP Problems Reviewed?: Yes Post Cardiac Cath/EP D/C Inst Follow Up/Plan Appointment with Dr. Dyer's office in 4 weeks <b>CARDIAC CATH/EP PROCEDURE DISCHARGE INSTRUCTIONS</b> ACTIVITY * Go Home directly and rest. * Limit activity of the leg (or wrist if it was used) for 7 days including aerobics, swimming, jogging, bicycling, etc. * Restrict stair-climbing for 7 days if possible, if not, climb up with your non-cath leg, then bring together on the same step. * Avoid lifting, pushing, pulling or excessive movement of the affected extremity for 7 days. * Customary sexual activity may be resumed after 2 days-use caution not to use a position that strains or causes pain to the affected extremity. * No driving for 24 hours. * NO SMOKING. * Avoid straining for bowel movements for 7 days. * Gentle walking on level ground is allowed. * Returning to work will depend on the type of procedure and the results. Your doctor will discuss this with you. CALL YOUR DOCTOR FOR ANY OF THE FOLLOWING: *If bleeding from the puncture site occurs- Apply gentle pressure to site with clean cloth and call your doctor or EMS. * If a knot or lump forms under the skin, increases in size, or causes pain. * If bruising appears to be worsening or moving further down your leg instead of disappearing. * Temperature above 101 F. CARE OF YOUR GROIN INCISION; * Bruising or purple discoloration of the skin near the puncture site is common. * You may shower only, no bathtub bathing for 5 days. Be careful to avoid slipping as your leg may feel stiff. * If a closure device was used on your femoral artery, please see the attached guide regarding care of the device and your leg. * Leave dressing on FOR 24 hours. CARE OF YOUR WRIST INCISION; * Bruising or purple discoloration of the skin near the puncture site is common. * You may shower. * DO NOT submerge wrist. * Leave dressing on FOR 24 hours. WINNIE DYER MD September 30, 2020 13:36
--- NOTE | 2020-09-30 13:41 | Cardiac Cath Report ---
Cardiac Cath Report Physician (s)/Supervisor Of Research (s) Physician WINNIE CLEMENTE MD Pre-Procedure Diagnosis Pre-Procedure Diagnosis: Coronary artery disease Post-Procedure Note Procedure Start Date: September 30, 2020 Name of Procedure: Left heart catheterization Findings/Procedure Note PROCEDURE NOTE: 70 years old lady with history of mild coronary artery disease, hypertension, hyperlipidemia, diabetes mellitus, had an abnormal stress test, scheduled for cardiac catheterization possible PTCA. After explaining the procedure to the patient, all pros and cons were explained, all questions were answered. The patient signed the consent and then she was placed on the cardiac catheterization laboratory. Groin was prepped SL fashion local anesthesia was used. Sheath placed in the right radial artery, and Michael right was advanced to the right coronary system and angiogram was done. I used multiple different catheter to access the left system without full success, I tr ied [place] catheter Michael left catheter, multipurpose and Raúl catheter, I was able to do nonselective angiogram to the left coronary system using the Raúl catheter and I was satisfied with the imaging showing mild nonobstructive disease. The aortic valve was crossed with multiple catheter and pressure was measured, pullback LV to aorta was done. At the end of the procedure sheath was removed vascular band was used FINDINGS: Hemodynamics LV Aorta ANATOMY: Left Main is free of obstructive disease Left Anterior Descending has mild disease nonobstructive disease Left Circumflex has mild disease nonobstructive disease Right Coronory Artery has mild disease nonobstructive disease LV Gram was not done, pressure was measured CONCLUSION: 1. Mild coronary artery disease nonobstructive disease 2. Normal left ventricular end-diastolic pressure DISCUSSION AND RECOMMENDATION: Medical therapy is recommended no intervention is needed Anesthesia Type: Conscious Sedation Estimated blood loss (mL): 25 ml Contrast Amount: 55 ml Total Radiation Dose: 569 mGy Post-Procedure Diagnosis Post-operative diagnosis: Chest pain Coronary artery disease Hypertension Hyperlipidemia WINNIE CLEMENTE MD September 30, 2020 13:41
== END 2020-09-30 16:30 ==
LOC: CATH 10:31
PROVIDERS: ATTEND Internal Medicine Cardiovascular Disease
DX: I25.10 Atherosclerotic heart disease of native coronary artery without angina pectoris (principal); I10 Essential (primary) hypertension; I48.0 Paroxysmal atrial fibrillation; I49.5 Sick sinus syndrome; G51.0 Bell's palsy; J44.9 Chronic obstructive pulmonary disease, unspecified; G47.33 Obstructive sleep apnea (adult) (pediatric); I65.23 Occlusion and stenosis of bilateral carotid arteries; I87.2 Venous insufficiency (chronic) (peripheral); E03.9 Hypothyroidism, unspecified; E11.9 Type 2 diabetes mellitus without complications; K21.9 Gastro-esophageal reflux disease without esophagitis; E78.2 Mixed hyperlipidemia; Z88.0 Allergy status to penicillin; Z88.2 Allergy status to sulfonamides; Z86.73 Personal history of transient ischemic attack (TIA), and cerebral infarction without residual deficits; Z88.5 Allergy status to narcotic agent; Z91.012 Allergy to eggs; Z88.7 Allergy status to serum and vaccine; Z79.01 Long term (current) use of anticoagulants; Z79.4 Long term (current) use of insulin; Z79.891 Long term (current) use of opiate analgesic; Z90.49 Acquired absence of other specified parts of digestive tract; Z90.710 Acquired absence of both cervix and uterus; Z90.89 Acquired absence of other organs
CPT/HCPCS: 71045; 80053; 80061; 85027; 85610; 85730; 87081; 93458; C1894; 36415

== ENCOUNTER 2020-11-11 11:02 | Emergency (ER) | payer MEDICARE ==
[~2020-11-11 11:02] MED LIST changes: +BUPR300T43 PO; +CARB15DR3 OU; +CNC1KV IM; +FLUT1DIS26 IH; +GUAI600T43 PO; +LEVO25TA2 PO; +LEVO5TAB28 PO; +ONDA4TAB11 PO; +SUCR1ORA5 PO; +ZFR20T PO
[2020-11-11] MEDS ORDERED: NS IV 500 ML 500 ML IV ONE (11:15)
[2020-11-11] MEDS ORDERED: fentaNYL INJ 100 MCG/2 ML AMP IVP ONE (11:15)
--- NOTE | 2020-11-11 11:20 | ED Fall/Injury ---
General Stated Complaint: FELL Source: patient, EMS Exam Limitations: no limitations History of Present Illness Date Seen by Provider: Nov 11, 2020 Time Seen by Provider: 10:57 Initial Comments Patient presents ER by EMS from home with chief complaint that she tripped over her own feet and fell forward onto outstretched left arm. She is now having pain in both of her shoulders left far worse than right. She was not given anything for pain but did take a pain pill oxycodone about 3 this morning. She rates it as an 8 out of 10. She is also having some pain on movement of her left elbow and wrist. She is both her knees and ankles hurt. She denies striking her head but she is on Eliquis. She is having some pain in her neck. EMS was unable to place a c-collar stating her neck was too wide. She is not having any numbness nor does she have a loss of consciousness. She denies chest pain cough shortness of air fever chills dysuria diarrhea constipation. Allergies and Home Medications Allergies Coded Allergies: Penicillins (Verified Allergy, Severe, SWELLING, HIVES, THROAT SWELLED, 01/21/16) PATIENT HAS RECEIVED CEFEPIME WITHOUT ISSUE Sulfa (Sulfonamide Antibiotics) (Verified Allergy, Severe, TONGUE SWELLED, 01/21/16) Tetanus & Diphtheria Tox,Adult (Verified Allergy, Severe, SWELLING OF THROAT, 01/21/16) codeine (Verified Allergy, Unknown, HAS RECEIVED LORTAB IN THE PAST, 01/21/16) egg (Unverified Allergy, Unknown, 06/29/16) FROM UNCODED ALLERGIES Home Medications Acetaminophen 325 Mg Capsule, 325-650 MG PO Q6H PRN for PAIN-MILD (1-4) OR TEMPATURE, (Reported) Allopurinol 100 Mg Tablet, 100 MG PO DAILY, (Reported) Alprazolam 0.5 Mg Tablet, 0.5 MG PO BID PRN for ANXIETY, (Reported) Amiodarone HCl 200 Mg Tablet, 200 MG PO DAILY, (Reported) Apixaban 5 Mg Tablet, 5 MG PO BID, (Reported) Aripiprazole 2 Mg Tablet, 2 MG PO 1999, (Reported) Azelastine HCl 137 Mcg/0.137 Ml [place].pump, 1 SPRAY NA TID, (Reported) Bupropion HCl 300 Mg Tab.er.24h, 300 MG PO DAILY, (Reported) Calcium Carbonate 500 Mg Tablet, 1,000 MG PO DAILY, (Reported) Carboxymethylcellulose Sodium 15 Ml Drp.lq.gel, 1 DROP OU DAILY PRN for DRY EYES, (Reported) Cholecalciferol (Vitamin D3) 125 Mcg Tablet, 125 MCG PO DAILY, (Reported) Colestipol HCl 1 Gm Tablet, 1 GM PO BID, (Reported) Cyanocobalamin 1,000 Mcg/Ml Inj, 1,000 MCG IM MONTHLY, (Reported) Docusate Sodium 100 Mg Capsule, 100 MG PO DAILY, (Reported) Famotidine 40 Mg Tablet, 40 MG PO 1999, (Reported) Ferrous Sulfate 325 Mg Tablet, 325 MG PO DAILY, (Reported) Fluticasone Propionate 16 Gm [place].susp, 1 SPRAY NSEACH BID, (Reported) Fluticasone/Salmeterol 1 Each Blst.w.dev, 1 EACH IH BID, (Reported) Furosemide 40 Mg Tablet, 40 MG PO DAILY, (Reported) Gabapentin 300 Mg Capsule, 900 MG PO TID, (Reported) TAKES 3 (300MG) CAPS Guaifenesin 600 Mg Tab.er.12h, 600 MG PO BID PRN for SINUS DRAINAGE, (Reported) Insulin Glargine,Hum.rec.anlog 300 Unit/1 Ml Insuln.pen, 30 UNIT SQ HS, (Reported) Insulin Lispro 100 Unit/1 Ml Insuln.pen, UNITS SC TIDWM, (Reported) 8 UNITS EACH MEAL WITH SLIDING SCALE: 150-200=1 UNIT 201-250=2 UNITS 251- 300=3 UNITS 301-350=4 UNITS 351-400=6 UNITS 400+=6 UNITS Levalbuterol HCl 1.25 Mg/3 Ml Vial.neb, 1.25 MG NEB Q6H PRN for SHORTNESS OF BREATH, (Reported) Levocetirizine Dihydrochloride 5 Mg Tablet, 5 MG PO DAILY, (Reported) Levothyroxine Sodium 25 Mcg Tablet, 25 MCG PO 0700, (Reported) Metoprolol Succinate 25 Mg Tab.er.24h, 25 MG PO DAILY, (Reported) Nystatin 15 Gm Powder, 1 APPLIC TOP QID PRN for RASH, (Reported) APPLY TO [place] AREA Ondansetron 4 Mg Tab.rapdis, 4 MG PO TID PRN for NAUSEA/VOMITING-1ST LINE, (Reported) Oxycodone HCl/Acetaminophen 1 Each Tablet, 1 EA PO QID PRN for PAIN-MODERATE, (Reported) Pantoprazole Sodium 20 Mg Tablet.dr, 20 MG PO DAILY, (Reported) Potassium Chloride 20 Meq Tablet.er, 20 MEQ PO DAILY, (Reported) Ropinirole HCl 1 Mg Tablet, 1 MG PO BID, (Reported) Sodium Chloride/Aloe Vera 14.1 Gm Gel..gram., 1 APPLIC NA HS, (Reported) Sucralfate 1 Gm/10 Ml Oral.susp, 1 GM PO QID, (Reported) Zafirlukast 20 Mg Tablet, 20 MG PO BID, (Reported) Patient Home Medication List Home Medication List Reviewed: Yes Review of Systems Review of Systems Constitutional: No chills, No diaphoresis Eyes: Denies Blindness, Denies Drainage Ears, Nose, Mouth, Throat: denies ear pain, denies nose pain Respiratory: No cough, No short of breath Cardiovascular: No edema, No syncope Gastrointestinal: No abdominal pain, No nausea, No vomiting Genitourinary: No discharge, No dysuria Musculoskeletal: see HPI; No back pain; joint pain, neck pain All Other Systems Reviewed Negative Unless Noted: Yes Past Nggsskf-Tlsawl-Jlzubq Hx Patient Social History Alcohol Use: Denies Use Drug of Choice: Denies Smoking Status: Never a Smoker 2nd Hand Smoke Exposure: Yes (DAD WAS HEAVY SMOKER) Recent Hopitalizations: Yes (3 months ago) Immunizations Up To Date Tetanus Booster (TDap): Unknown PED Vaccines UTD: Yes Date of Pneumonia Vaccine: Mar 31, 2017 Seasonal Allergies Seasonal Allergies: Yes Past Medical History Surgeries: Yes (KNEE SCOPES X3 - D&C'S; CARDIAC ABLATION FOR A. 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, 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 Sexually Transmitted Disease: No HIV/AIDS: No Genitourinary: Yes UTI-Chronic Gastrointestinal: Yes Colitis, Gastroesophageal Reflux, Diverticulosis, Irritable Bowel Musculoskeletal: Yes (CHRONIC BACK PAIN AND SCIATICA; CHRONIC NECK AND SHOULDER PAIN ) Arthritis, Fibromyalgia, Chronic Back Pain Endocrine: Yes (OBESITY) Diabetes, Insulin dep, Hypothyroidsim HEENT: Yes Tonsilitis Loss of Vision: Denies Hearing Impairment: Denies Cancer: No Psychosocial: Yes Anxiety, Depression Integumentary: No Blood Disorders: Yes (CHRONIC ANEMIA) Adverse Reaction/Blood Tranf: No Family Medical History Cardiovascular disease 19 FATHER 19 MOTHER Diabetes mellitus 19 MOTHER Irritable bowel syndrome G8 BROTHER Myocardial infarction 19 FATHER 19 MOTHER TIAs 19 MOTHER Heart Disease, CAD Over 55 Years Old, CVA, Diabetes, GI Disease, Hypertension, Stroke, Vascular Disease Physical Exam Vital Signs Vital Signs - First Documented 11/11/20 11:02 Temp 36.7 Pulse 75 Resp 20 B/P (MAP) 137/63 (87) Pulse Ox 95 Capillary Refill : Height, Weight, BMI Height: 5'5.00" Weight: 225lbs. 0.0oz. 102.414767yb; 38.61 BMI Method:Estimated General Appearance: WD/WN, mild distress, obese HEENT: PERRL/EOMI (3 mm reactive bilateral, symmetric without raccoon eyes), normal ENT inspection (Atraumatic head), TMs normal (Negative for hemotympanum or saunders sign), pharynx normal Neck: tender midline Cardiovascular: normal peripheral pulses, regular rate, rhythm Respiratory: chest non-tender, lungs clear, normal breath sounds, no respiratory distress, no accessory muscle use Peripheral Pulses: 2+ Dorsalis Pedis (R), 2+ Left Dors-Pedis (L), 2+ Radial Pulses (R), 2+ Radial Pulses (L) Gastrointestinal: normal bowel sounds, non tender, soft Extremities: normal inspection, no pedal edema, normal capillary refill, other (Splinting the left shoulder and elbow with her right arm. She has tenderness over her left wrist, left elbow and left shoulder distal clavicle as well as posteriorly over the scapula. Some tenderness over the proximal and distal right clavicle. Bilateral knees are tender to palpation over the patella anterior tibial plateau. Range of motion is full.Bilateral ankles are nontender posteriorly on either malleoli bilaterally.) Neurologic/Psychiatric: arbor end mainspring former II-XII nml as tested, no motor/sensory deficits, alert, normal mood/affect, oriented x 3 Skin: normal color, warm/dry Maryneal Coma Score Best Eye Response: (4) Open Spontaneously Best Verbal Response: (5) Oriented Best Motor Response: (6) Obeys Commands Maryneal Total: 15 Progress/Results/Core Measures Results/Orders Lab Results Laboratory Tests Test 11/11/20 11:16 Range/Units White Blood Count 5.8 4.3-11.0 10^3/uL Red Blood Count 4.20 3.80-5.11 10^6/uL Hemoglobin 12.2 11.5-16.0 g/dL Hematocrit 40 35-52 % Mean Corpuscular Volume 95 80-99 fL Mean Corpuscular Hemoglobin 29 25-34 pg Mean Corpuscular Hemoglobin Concent 31 L 32-36 g/dL Red Cell Distribution Width 14.3 10.0-14.5 % Platelet Count 188 130-400 10^3/uL Mean Platelet Volume 10.6 9.0-12.2 fL Immature Granulocyte % (Auto) 0 % Neutrophils (%) (Auto) 63 42-75 % Lymphocytes (%) (Auto) 24 12-44 % Monocytes (%) (Auto) 9 0-12 % Eosinophils (%) (Auto) 3 0-10 % Basophils (%) (Auto) 1 0-10 % Neutrophils # (Auto) 3.7 1.8-7.8 10^3/uL Lymphocytes # (Auto) 1.4 1.0-4.0 10^3/uL Monocytes # (Auto) 0.5 0.0-1.0 10^3/uL Eosinophils # (Auto) 0.2 0.0-0.3 10^3/uL Basophils # (Auto) 0.0 0.0-0.1 10^3/uL Immature Granulocyte # (Auto) 0.0 0.0-0.1 10^3/uL Sodium Level 144 135-145 MMOL/L Potassium Level 4.4 3.6-5.0 MMOL/L Chloride Level 100 98-107 MMOL/L Carbon Dioxide Level 31 21-32 MMOL/L Anion Gap 13 5-14 MMOL/L Blood Urea Nitrogen 22 H 7-18 MG/DL Creatinine 1.33 H 0.60-1.30 MG/DL Estimat Glomerular Filtration Rate 39 BUN/Creatinine Ratio 17 Glucose Level 100 70-105 MG/DL Calcium Level 9.1 8.5-10.1 MG/DL Corrected Calcium 9.0 8.5-10.1 MG/DL Total Bilirubin 0.3 0.1-1.0 MG/DL Aspartate Amino Transf (AST/SGOT) 24 5-34 U/L Alanine Aminotransferase (ALT/SGPT) 25 0-55 U/L Alkaline Phosphatase 97 40-136 U/L Total Protein 6.7 6.4-8.2 GM/DL Albumin 4.1 3.2-4.5 GM/DL My Orders Orders - MIYA CORREA Ed Iv/Invasive Line Start (11/11/20 11:12) Ns Iv 500 Ml (Sodium Chloride 0.9%) (11/11/20 11:15) Cbc With Automated Diff (11/11/20 11:12) Comprehensive Metabolic Panel (11/11/20 11:12) Chest 1 View, Ap/Pa Only (11/11/20 11:12) Elbow, Left, 3 Views (11/11/20 11:12) Wrist, Left, 3 Views Or More (11/11/20 11:12) Ct Head/Cervical Spine Wo (11/11/20 11:12) Fentanyl Inj (Sublimaze Injection) (11/11/20 11:15) Knee, 3 Views, Bilateral (11/11/20 11:12) Shoulder, Bilateral, 3 Views (11/11/20 11:12) Hand, Left, 3 Views (11/11/20 12:00) Oxycodone/Apap 7.5/325mg Tab (Percocet (11/11/20 13:45) Medications Given in ED Current Medications Medications Dose Ordered Sig/Jorge Route Start Time Stop Time Status Last Admin Dose Admin Fentanyl Citrate 50 mcg ONCE ONCE IVP 11/11/20 11:15 11/11/20 11:16 DC 11/11/20 11:22 50 MCG Oxycodone/ Acetaminophen 1 each ONCE ONCE PO 11/11/20 13:45 11/11/20 13:46 DC 11/11/20 13:59 1 EACH Sodium Chloride 500 ml @ 0 mls/hr Q0M ONCE IV 11/11/20 11:15 11/11/20 11:16 DC 11/11/20 11:22 500 MLS/HR Vital Signs/I&O 11/11/20 11:02 Temp 36.7 Pulse 75 Resp 20 B/P (MAP) 137/63 (87) Pulse Ox 95 Progress Progress Note #1: Time: 11:19 Progress Note Imaging of her head and C-spine, bilateral shoulders chest x-ray, and knees as well as left elbow and wrist. 50 mcg of fentanyl for 8 out of 10 pain. Lab. She denies urine symptoms so we will not do a urinalysis. Progress Note #2: Time: 13:29 Progress Note C-spine cleared radiographically and clinically. Percocet for her hand pain related to her hand fracture. Diagnostic Imaging Diagonstic Imaging: CT Plain Films/CT/US/NM/MRI: c-spine, head Comments NAME: FAUSTINO LOCO MED REC#: [id number] PT STATUS: REG ER : 1950 PHYSICIAN: MIYA CORREA MD ADMIT DATE: 11/11/20/ER Signed Date of Exam:11/11/20 CT HEAD/CERVICAL SPINE WO PROCEDURE: CT head and CT cervical spine without contrast. TECHNIQUE: Multiple contiguous axial images were obtained through the brain and cervical spine without the use of intravenous contrast. Sagittal and coronal reformations through the cervical spine were then performed. Auto Exposure Controls were utilized during the CT exam to meet ALARA standards for radiation dose reduction. INDICATION: Fall. Hit head. Scalp contusion. Head and neck pain. COMPARISON: 03/26/2019. FINDINGS: CT head: No large acute territorial ischemia, mass, or hemorrhage. No midline shift or mass effect. Decreased attenuation is seen in the periventricular and subcortical white matter. The ventricles and cortical sulci are prominent. The basilar cisterns are patent and unremarkable. The calvarium is intact. The visualized paranasal sinuses are clear. CT cervical spine: No acute fracture or dislocation is seen in the cervical spine. No focal osseous lesions. Vertebral body heights are well-maintained. The craniocervical junction is well-maintained. Hgbm-bq-thhkymdx degenerative changes are seen in the cervical spine with disc osteophyte complexes and uncovertebral arthropathy. Large bulky anterior osteophytes are seen throughout the cervical spine. Soft tissues of the neck are unremarkable. IMPRESSION: 1. No hemorrhage or focal intra-axial mass. No CT evidence of large acute territorial ischemia. 2. No acute fracture or dislocation in the cervical spine. 3. Generalized parenchymal volume loss with scattered chronic microvascular disease. 4. Large bulky anterior osteophytes throughout the cervical spine. This can be a cause of dysphagia. Recommend correlation with patient history. Dictated by: Dictated on workstation # [id number] Dict: 11/11/20 1218 Trans: 11/11/20 1224 [facility] [id number] Interpreted by: JOSE MILNER DO Electronically signed by: JOSE MILNER DO 11/11/20 1224 Reviewed: Reviewed by Tx Diagonstic Imaging: Xray Plain Films/CT/US/NM/MRI: other (Shoulders bilateral) Comments [facility] [employer] [employer] [place] [place] NAME: BERONICAFAUSTINO MED REC#: [id number] PT STATUS: REG ER : 1950 PHYSICIAN: MIYA CORREA MD ADMIT DATE: 11/11/20/ER Signed Date of Exam:11/11/20 SHOULDER, BILATERAL, 3 VIEWS HISTORY: Fall, bilateral shoulder injury. TECHNIQUE: Three views of the bilateral shoulders. COMPARISON: None. FINDINGS: No acute fracture or dislocation is seen in the bilateral shoulders. Alignment appears normal. There is a suture anchor in the left humeral head. There are moderate degenerative changes in the glenohumeral joints and in the acromioclavicular joints bilaterally. IMPRESSION: Degenerative changes in the bilateral shoulders with no acute fracture seen. Dictated by: Dictated on workstation # [id number] Dict: 11/11/20 1245 Trans: 11/11/20 1416 [id number] Interpreted by: EMA BELTRAN MD Electronically signed by: EMA BELTRAN MD 11/11/20 1416 Reviewed: Reviewed by Tx Diagonstic Imaging: Xray Plain Films/CT/US/NM/MRI: knee (Bilateral) Comments [facility] [place] [place] NAME: FAUSTINO LOCO MED REC#: [id number] PT STATUS: REG ER : 1950 PHYSICIAN: MIYA CORREA MD ADMIT DATE: 11/11/20/ER Signed Date of Exam:11/11/20 KNEE, 3 VIEWS, BILATERAL HISTORY: Fall, bilateral knee pain. COMPARISON: 03/26/2019. TECHNIQUE: Three views of the bilateral knees. FINDINGS: Right knee: No acute fracture is seen in the right knee. Alignment is normal. There is severe endstage osteoarthritis in the medial, lateral, and patellofemoral compartments. There is a small joint effusion. A joint body is seen superiorly. There is mild subcutaneous edema about the right knee. Left knee: No acute fracture is seen in the left knee. Alignment appears normal. There are severe degenerative changes in all 3 compartments. There is a small left knee joint effusion. There are joint bodies posteriorly. There is mild surrounding subcutaneous edema. IMPRESSION: 1. Severe, end-stage osteoarthritis in all 3 compartments of the bilateral knees with no acute fracture seen. 2. Small bilateral knee joint effusions with joint bodies. Dictated by: Dictated on workstation # [id number] Dict: 11/11/20 1247 Trans: 11/11/20 1416 [id number] Interpreted by: EMA BELTRAN MD Electronically signed by: EMA BELTRAN MD 11/11/20 1416 Reviewed: Reviewed by Tx Diagonstic Imaging: Xray Plain Films/CT/US/NM/MRI: forearm (Left wrist), elbow (Left elbow) Comments [facility] [place] [place] NAME: FAUSTINO LOCO [facility] REC#: [id number] PT STATUS: REG ER : 1950 PHYSICIAN: MIYA CORREA MD ADMIT DATE: 11/11/20/ER Signed Date of Exam:11/11/20 WRIST, LEFT, 3 VIEWS OR MORE HISTORY: Fall, left wrist pain TECHNIQUE: Three views of the left wrist. COMPARISON: None FINDINGS: No acute fracture or dislocation is seen in the left wrist. Alignment appears normal. There is diffuse osteopenia. There are severe degenerative changes at the base of the thumb. The pronator fat pad is not displaced. There is mildly displaced oblique fracture of the third metacarpal shaft. IMPRESSION: 1. No acute fracture is seen in the left wrist. 2. Severe degenerative changes at the base of the left thumb. 3. Mildly displaced oblique fracture of the third metacarpal shaft. Dictated by: Dictated on workstation # [id number] Dict: 11/11/20 1241 Trans: 11/11/20 141[facility] [id number] Interpreted by: EMA BELTRAN MD Electronically signed by: EMA BELTRAN MD 11/11/20 1416 [facility] [place] [place] NAME: FAUSTINO LOCO [facility] REC#: [id number] PT STATUS: REG ER : 1950 PHYSICIAN: MIYA CORREA MD ADMIT DATE: 11/11/20/ER Signed Date of Exam:11/11/20 ELBOW, LEFT, 3 VIEWS HISTORY: Fall, left elbow injury. TECHNIQUE: 3 views of left elbow COMPARISON: None FINDINGS: No acute fracture or dislocation is seen in the left elbow. Alignment appears normal. There is mild degenerative change in the left elbow with a small olecranon enthesophyte. No significant joint effusion is seen although the lateral view is suboptimally rotated. IMPRESSION: 1. No acute osseous abnormality is seen in the left elbow. Dictated by: Dictated on workstation # [id number] Dict: 11/11/20 1246 Trans: 11/11/20 141[facility] [id number] Interpreted by: EMA BELTRAN MD Electronically signed by: EMA BELTRAN MD 11/11/20 1416 Reviewed: Reviewed by Tx Diagonstic Imaging: Xray Plain Films/CT/US/NM/MRI: hand (l) Comments [facility] [place] [place] NAME: FAUSTINO LOCO [facility] REC#: [id number] PT STATUS: REG ER : 1950 PHYSICIAN: MIYA CORREA MD ADMIT DATE: 11/11/20/ER Draft Date of Exam:11/11/20 HAND, LEFT, 3 VIEWS HISTORY: Fall, left hand pain. TECHNIQUE: Three views of the left hand. COMPARISON: None. FINDINGS: There is an oblique mildly posteriorly displaced fracture of the left 3rd metacarpal shaft. There are severe degenerative changes at the base of the thumb. No cortical erosions are seen. Mild degenerative changes are seen in the interphalangeal joints. IMPRESSION: 1. Mildly displaced oblique fracture of the left 3rd metacarpal shaft. 2. Severe degenerative changes of the base of the left thumb. Dictated on workstation # [id number] Dict: 11/11/20 1249 Trans: 11/11/20 1301 [id number] Interpreted by: EMA BELTRAN MD Electronically signed by: Reviewed: Reviewed by Me Departure Impression Primary Impression: Fall Qualified Codes: W19.XXXA - Unspecified fall, initial encounter Additional Impressions: Contusion Qualified Codes: S00.03XA - Contusion of scalp, initial encounter Closed left hand fracture Qualified Codes: S62.92XA - Unspecified fracture of left wrist and hand, initial encounter for closed fracture Shoulder pain, bilateral Qualified Codes: M25.511 - Pain in right shoulder; M25.512 - Pain in left shoulder Knee pain, bilateral Qualified Codes: M25.561 - Pain in right knee; M25.562 - Pain in left knee Disposition: 01 HOME, SELF-CARE Condition: Stable Departure-Patient Inst. Decision time for Depature: 15:14 Referrals: DAISY JOHNSON MD (PCP/Family) Primary Care Physician Patient Instructions: Hand Fracture (DC) Add. Discharge Instructions: Apply ice to the areas that hurt for 20 minutes on every 2 hours while awake for the first 2 to 3 days. Topical creams such as icy hot or Biofreeze may be helpful for pain. Wear the cock-up splint at all times except to bathe on your left hand. Follow-up with your primary care doctor in 1 week for reevaluation of your hand fracture. Tylenol 650 mg every 8 hours as necessary for pain. Use your pain medicines at home as necessary to control your pain. Keep your hand elevated above the level of your heart to reduce swelling and pain especially for the first 2 to 3 days. If you have numbness and tingling in your hand then you need to loosen the splint and elevate your hand above the level of your heart. Use ice to reduce swelling. MIYA CORREA Nov 11, 2020 11:20
[2020-11-11 11:28] LABS: BASOPHILS % (AUTO) 1 % (0-10); EOSINOPHILS # (AUTO) 0.2 10^3/uL (0.0-0.3); EOSINOPHILS % (AUTO) 3 % (0-10); HEMATOCRIT 40 % (35-52); HEMOGLOBIN 12.2 g/dL (11.5-16.0); LYMPHOCYTES # (AUTO) 1.4 10^3/uL (1.0-4.0); LYMPHOCYTES % (AUTO) 24 % (12-44); MEAN CORPUSCULAR HEMOGLOBIN 29 pg (25-34); MEAN CORPUSCULAR HGB CONC 31 g/dL (32-36); MEAN CORPUSCULAR VOLUME 95 fL (80-99); MEAN PLATELET VOLUME 10.6 fL (9.0-12.2); MONOCYTES # (AUTO) 0.5 10^3/uL (0.0-1.0); MONOCYTES % (AUTO) 9 % (0-12); NEUTROPHILS # (AUTO) 3.7 10^3/uL (1.8-7.8); NEUTROPHILS % (AUTO) 63 % (42-75); PLATELET COUNT 188 10^3/uL (130-400); WHITE BLOOD COUNT 5.8 10^3/uL (4.3-11.0)
[2020-11-11 11:33] LABS: ALBUMIN 4.1 GM/DL (3.2-4.5)
[2020-11-11 11:34] LABS: POTASSIUM 4.4 MMOL/L (3.6-5.0)
[2020-11-11 11:35] LABS: CALCIUM 9.1 MG/DL (8.5-10.1)
[2020-11-11 11:36] LABS: TOTAL PROTEIN 6.7 GM/DL (6.4-8.2)
[2020-11-11 11:38] LABS: BILIRUBIN,TOTAL 0.3 MG/DL (0.1-1.0)
[2020-11-11 11:40] LABS: CREATININE SERUM 1.33 MG/DL (0.60-1.30)
--- NOTE | 2020-11-11 12:24 | Diagnostic Imaging Report ---
PROCEDURE: CT head and CT cervical spine without contrast. TECHNIQUE: Multiple contiguous axial images were obtained through the brain and cervical spine without the use of intravenous contrast. Sagittal and coronal reformations through the cervical spine were then performed. Auto Exposure Controls were utilized during the CT exam to meet ALARA standards for radiation dose reduction. INDICATION: Fall. Hit head. Scalp contusion. Head and neck pain. COMPARISON: 03/26/2019. FINDINGS: CT head: No large acute territorial ischemia, mass, or hemorrhage. No midline shift or mass effect. Decreased attenuation is seen in the periventricular and subcortical white matter. The ventricles and cortical sulci are prominent. The basilar cisterns are patent and unremarkable. The calvarium is intact. The visualized paranasal sinuses are clear. CT cervical spine: No acute fracture or dislocation is seen in the cervical spine. No focal osseous lesions. Vertebral body heights are well-maintained. The craniocervical junction is well-maintained. Azzc-ci-kxbflnqp degenerative changes are seen in the cervical spine with disc osteophyte complexes and uncovertebral arthropathy. Large bulky anterior osteophytes are seen throughout the cervical spine. Soft tissues of the neck are unremarkable. IMPRESSION: 1. No hemorrhage or focal intra-axial mass. No CT evidence of large acute territorial ischemia. 2. No acute fracture or dislocation in the cervical spine. 3. Generalized parenchymal volume loss with scattered chronic microvascular disease. 4. Large bulky anterior osteophytes throughout the cervical spine. This can be a cause of dysphagia. Recommend correlation with patient history. Dictated by: Dictated on workstation # [id number]
--- NOTE | 2020-11-11 12:45 | Diagnostic Imaging Report ---
HISTORY: Trauma, fall. TECHNIQUE: Single frontal view of the chest. COMPARISON: 04/02/2020. FINDINGS: Lung volumes are mildly low. No focal consolidation is seen. There is no pleural effusion or pneumothorax. The cardiac silhouette is mildly prominent but appears stable since the prior study. A bracelet form coverer device is noted. No displaced fractures are seen. IMPRESSION: 1. Low lung volumes with no acute pulmonary abnormality seen. Dictated by: Dictated on workstation # [id number]
--- NOTE | 2020-11-11 12:46 | Diagnostic Imaging Report ---
HISTORY: Fall, left wrist pain TECHNIQUE: Three views of the left wrist. COMPARISON: None FINDINGS: No acute fracture or dislocation is seen in the left wrist. Alignment appears normal. There is diffuse osteopenia. There are severe degenerative changes at the base of the thumb. The pronator fat pad is not displaced. There is mildly displaced oblique fracture of the third metacarpal shaft. IMPRESSION: 1. No acute fracture is seen in the left wrist. 2. Severe degenerative changes at the base of the left thumb. 3. Mildly displaced oblique fracture of the third metacarpal shaft. Dictated by: Dictated on workstation # [id number]
--- NOTE | 2020-11-11 12:47 | Diagnostic Imaging Report ---
HISTORY: Fall, bilateral shoulder injury. TECHNIQUE: Three views of the bilateral shoulders. COMPARISON: None. FINDINGS: No acute fracture or dislocation is seen in the bilateral shoulders. Alignment appears normal. There is a suture anchor in the left humeral head. There are moderate degenerative changes in the glenohumeral joints and in the acromioclavicular joints bilaterally. IMPRESSION: Degenerative changes in the bilateral shoulders with no acute fracture seen. Dictated by: Dictated on workstation # [id number]
--- NOTE | 2020-11-11 12:50 | Diagnostic Imaging Report ---
HISTORY: Fall, bilateral knee pain. COMPARISON: 03/26/2019. TECHNIQUE: Three views of the bilateral knees. FINDINGS: Right knee: No acute fracture is seen in the right knee. Alignment is normal. There is severe endstage osteoarthritis in the medial, lateral, and patellofemoral compartments. There is a small joint effusion. A joint body is seen superiorly. There is mild subcutaneous edema about the right knee. Left knee: No acute fracture is seen in the left knee. Alignment appears normal. There are severe degenerative changes in all 3 compartments. There is a small left knee joint effusion. There are joint bodies posteriorly. There is mild surrounding subcutaneous edema. IMPRESSION: 1. Severe, end-stage osteoarthritis in all 3 compartments of the bilateral knees with no acute fracture seen. 2. Small bilateral knee joint effusions with joint bodies. Dictated by: Dictated on workstation # [id number]
--- NOTE | 2020-11-11 12:59 | Diagnostic Imaging Report ---
HISTORY: Fall, left elbow injury. TECHNIQUE: 3 views of left elbow COMPARISON: None FINDINGS: No acute fracture or dislocation is seen in the left elbow. Alignment appears normal. There is mild degenerative change in the left elbow with a small olecranon enthesophyte. No significant joint effusion is seen although the lateral view is suboptimally rotated. IMPRESSION: 1. No acute osseous abnormality is seen in the left elbow. Dictated by: Dictated on workstation # [id number]
--- NOTE | 2020-11-11 13:02 | Diagnostic Imaging Report ---
HISTORY: Fall, left hand pain. TECHNIQUE: Three views of the left hand. COMPARISON: None. FINDINGS: There is an oblique mildly posteriorly displaced fracture of the left 3rd metacarpal shaft. There are severe degenerative changes at the base of the thumb. No cortical erosions are seen. Mild degenerative changes are seen in the interphalangeal joints. IMPRESSION: 1. Mildly displaced oblique fracture of the left 3rd metacarpal shaft. 2. Severe degenerative changes of the base of the left thumb. Dictated by: Dictated on workstation # [id number]
[2020-11-11] MEDS ORDERED: oxyCODONE/APAP 7.5-325 MG (PERCOCET 7.5) TABLET PO ONE (13:45)
[2020-11-11 15:37] VITALS: BP 125/63
== END 2020-11-11 15:47 | disposition home or self-care (01) ==
LOC: EDUNIT# 11:09 → ER 11:10
DX: Z48.02 Encounter for removal of sutures (principal)
CPT/HCPCS: 36415; 70450; 71045; 72125; 73080; 73110; 73130; 80053; 82947; 85025

== ENCOUNTER → 2020-12-28 | Outpatient (CLI) | payer MEDICARE ==
--- NOTE | 2020-12-28 11:56 | Diagnostic Imaging Report ---
INDICATION: Routine screening. COMPARISON: 08/05/2016 and 11/21/2013. TECHNIQUE: 2D and 3D bilateral screening mammography was performed with CAD. FINDINGS: Scattered fibroglandular densities are identified bilaterally. A cardiac monitoring device overlies the medial left breast. There are scattered benign calcifications. No mass or malignant-appearing microcalcifications are seen. The axillae are unremarkable. IMPRESSION: No mammographic features suspicious for malignancy are identified. ACR BI-RADS Category 2: Benign findings. Result letter will be mailed to the patient. Note: At least 10% of breast cancer is not imaged by mammography. Dictated by: Dictated on workstation # [id number]
== END ==
LOC: RAD 10:00
PROVIDERS: ATTEND Nurse Practitioner Family
DX: Z12.31 Encounter for screening mammogram for malignant neoplasm of breast (principal)
CPT/HCPCS: 77063; 77067

== ENCOUNTER 2021-02-04 09:19 | Outpatient (RCR) | payer MEDICARE ==
[~2021-02-04 09:19] MED LIST changes: -LISI2.5T PO; +LISI2.5T13 PO
== END 2021-03-11 15:30 | disposition home or self-care (01) ==
PROVIDERS: ATTEND Orthopaedic Surgery
DX: S62.303D Unspecified fracture of third metacarpal bone, left hand, subsequent encounter for fracture with routine healing (principal); W19.XXXD Unspecified fall, subsequent encounter

== ENCOUNTER 2021-02-16 05:36 | Outpatient (CLI) | payer MEDICARE ==
[~2021-02-16] VITALS: Ht 157.5 cm; Wt 95.8 kg
== END 2021-02-17 08:15 ==
LOC: PREOP 05:36
PROVIDERS: ATTEND Surgery
DX: Z01.818 Encounter for other preprocedural examination (principal)

== ENCOUNTER 2021-03-16 09:40 | Day surgery (SDC) | payer MEDICARE ==
[~2021-03-16] VITALS: Ht 157.5 cm; Wt 95.8 kg
[2021-03-16] MEDS ORDERED: LACTATED RINGERS 1,000 ML IV STA (09:48)
[2021-03-16] MEDS ORDERED: LACTATED RINGERS 1,000 ML IV ONE (09:54)
[2021-03-16 09:58] VITALS: BP 137/65
[2021-03-16] MEDS ORDERED: proPOfol 200 MG/20 ML (DIPRIVAN) VIAL IV ONE ×2 (11:11→11:40)
[2021-03-16 11:40] VITALS: BP 124/63
[2021-03-16 11:45] VITALS: BP 142/65
--- NOTE | 2021-03-16 11:50 | Progress Note-Post Operative ---
Post-Operative Progess Note Surgeon (s)/3D Artist (s) Surgeon ZIA GUTHRIE DO 3D Artist: na Pre-Operative Diagnosis family hx colon cancer Post-Operative Diagnosis sigmoid polyp, minimal diverticulosis Procedure & Operative Findings Date of Procedure 03/16/21 Procedure Performed/Findings colonoscopy c cold biopsy polypectomy sigmoid Anesthesia Type per [facility] Estimated Blood Loss Estimated blood loss (mL): none Specimens/Packing Specimens Removed sigmoid polyp ZIA GUTHRIE DO Mar 16, 2021 11:50
--- NOTE | 2021-03-16 11:51 | Discharge Inst-Simple/Standard ---
Discharge Inst-Standard Patient Instructions/Follow Up Plan of Care/Instructions/FU: 2 weeks sangita Activity as Tolerated: Yes Discharge Diet: Regular Diet (high fiber) ZIA GUTHRIE DO Mar 16, 2021 11:51
[2021-03-16 12:10] VITALS: BP 150/61
--- NOTE | 2021-03-16 14:31 | Anesthesia-General Post-Op ---
MAC Patient Condition Mental Status/LOC: Same as Preop Cardiovascular: Satisfactory Nausea/Vomiting: Absent Respiratory: Satisfactory Pain: Controlled Complications: Absent Post Op Complications Complications None Follow Up Care/Instructions Patient Instructions None needed. Anesthesiology Discharge Order Discharge Order Patient was seen after the procedure and she was doing well, no complaints, stable vital signs, no apparent adverse anesthesia problems. CHRISTOPHER GALE DO Mar 16, 2021 14:31
--- NOTE | 2021-03-16 18:21 | OPERATIVE REPORT ---
DATE OF SERVICE: 03/16/2021 PREOPERATIVE DIAGNOSIS: Family history of colon cancer. POSTOPERATIVE DIAGNOSES: Sigmoid colon polyp, minimal diverticulosis. PROCEDURE: Colonoscopy with cold biopsy polypectomy of sigmoid colon. SURGEON: Zia Pavon DO ANESTHESIA: Per MDA. ESTIMATED BLOOD LOSS: None. COMPLICATIONS: None. INDICATIONS: The patient is a 70-year-old female needing screening colonoscopy. She understands risks and benefits of procedure and wished to proceed. Consent was signed in the chart. DESCRIPTION OF PROCEDURE: The patient was taken to endoscopy suite, placed in left lateral recumbent position. Timeout was performed. Digital rectal exam was performed. There were no palpable polyps, masses or ulcerations. Scope was inserted in the rectum and advanced all the way to cecum with minimal difficulty. Prep was adequate with irrigation and suction. Scope was then slowly retracted back. No polyps, masses or ulcerations in the cecum, ascending, transverse, descending colon and sigmoid colon, a very small polyp was present, which cold biopsy polypectomy was performed. Scope was then continuously retracted back in the rectum, it was also retroflexed noting no other pathology. Scope was returned to its normal position, slowly withdrawn until completely removed. The patient tolerated procedure well without any complications. She was taken to recovery room in stable condition. RECOMMENDATIONS: The patient will need repeat colonoscopy only on an as needed basis, if benefits outweigh the risk or symptomatic. Job ID: [id number] DocumentID: [id number] Dictated Date: 03/16/2021 11:53:40 Marketing Operations Consultant Date: 03/16/2021 18:20:42 Dictated By: ZIA PAVON DO
[2021-03-19] MEDS ORDERED: BREX0.5T PO (15:34)
== END 2021-03-16 12:20 | disposition home or self-care (01) ==
LOC: ENDO 09:40
PROVIDERS: ATTEND Surgery
DX: Z12.11 Encounter for screening for malignant neoplasm of colon (principal); D12.5 Benign neoplasm of sigmoid colon; K57.90 Diverticulosis of intestine, part unspecified, without perforation or abscess without bleeding; Z80.0 Family history of malignant neoplasm of digestive organs; I25.10 Atherosclerotic heart disease of native coronary artery without angina pectoris; I48.91 Unspecified atrial fibrillation; E03.9 Hypothyroidism, unspecified; K21.9 Gastro-esophageal reflux disease without esophagitis; I10 Essential (primary) hypertension; E78.5 Hyperlipidemia, unspecified; J44.9 Chronic obstructive pulmonary disease, unspecified; G47.33 Obstructive sleep apnea (adult) (pediatric); Z99.89 Dependence on other enabling machines and devices; E11.42 Type 2 diabetes mellitus with diabetic polyneuropathy; E66.9 Obesity, unspecified; Z68.39 Body mass index [BMI] 39.0-39.9, adult; Z79.4 Long term (current) use of insulin; Z79.01 Long term (current) use of anticoagulants; Z79.890 Hormone replacement therapy; Z79.899 Other long term (current) drug therapy; Z88.0 Allergy status to penicillin; Z88.2 Allergy status to sulfonamides; Z88.7 Allergy status to serum and vaccine; Z88.5 Allergy status to narcotic agent
CPT/HCPCS: 82947

== ENCOUNTER 2021-03-24 09:12 | Day surgery (SDC) | payer MEDICARE ==
--- NOTE | 2021-03-17 06:09 | HISTORY AND PHYSICAL ---
DATE OF SERVICE: ADMISSION HISTORY AND PHYSICAL This will be for outpatient surgery on 03/24/2021 for right carpal tunnel release. HISTORY: The patient is a 70-year-old female with long-standing progressive right hand pain and paresthesias. She underwent an EMG nerve conduction study, which revealed evidence of right carpal tunnel syndrome. She reports paresthesias in her long and index fingers. She reports night pain. She has tried splinting, activity modifications, anti-inflammatories without relief. Due to functional impairment and failure to improve with conservative measures, the patient has elected to proceed with surgical intervention. REVIEW OF SYSTEMS: No chest pain, no shortness of breath, no dysuria. PAST MEDICAL HISTORY: Low back pain, allergies, anxiety, depression, diabetes type 2, hypertension, fibromyalgia, irritable bowel syndrome, sacroiliitis, sciatica, tachycardia, myalgia, myositis, asthma, Crum's palsy, atrial fibrillation, COPD, CVA, hypothyroidism, constipation, reflux. PAST SURGICAL HISTORY: Cholecystectomy, section, breast lumpectomy, left knee arthroscopy, right knee arthroscopy, appendectomy, coronary catheterization, right rotator cuff repair, tonsillectomy and hysterectomy. SOCIAL HISTORY: The patient denies alcohol and tobacco use. FAMILY HISTORY: Significant for cancer, stroke, hypertension, coronary artery disease, diabetes. PRIMARY CARE PROVIDER: Dr. Motta. MEDICATIONS: Zofran, Colestipol, Toprol, Advair, furosemide, Wellbutrin, alprazolam, Xyzal, Percocet, Colace, Humalog, famotidine, ropinirole, Eliquis, allopurinol, potassium, calcium, gabapentin, vitamin D, Rexulti, Dulcolax, Voltaren, nystatin, Tylenol, iron, amiodarone, Xopenex, Synthroid, Protonix, Toujeo, Mucinex, azelastine, Zafirlukast. ALLERGIES: PENICILLIN, TETANUS, SULFA, CODEINE AND CEFDINIR. SOCIAL HISTORY: The patient denies tobacco and alcohol use. PHYSICAL EXAMINATION: GENERAL: The patient is well developed, well nourished, in no acute distress. HEENT: Normocephalic, atraumatic. Pupils are equal, round and reactive to light. Oropharynx is clear. NECK: Supple, with no lymphadenopathy. LUNGS: Clear to auscultation bilaterally. HEART: Regular rate and rhythm. ABDOMEN: Soft, nontender, nondistended. EXTREMITIES: The right hand demonstrates positive Tinel's of the carpal tunnel. She has a positive Phalen's maneuver. She has decreased sensation in median distribution. IMPRESSION: Right carpal tunnel syndrome. PLAN: Right carpal tunnel release. The risks, benefits, options, ramifications and recovery have been discussed at length with the patient. She understands and wishes to proceed. Job ID: [id number] DocumentID: [id number] Dictated Date: 03/09/2021 15:24:30 Youth Services Specialist Date: 03/09/2021 16:04:15 Dictated By: DARY HAYDEN MD
[2021-03-24] VITALS (9 sets, daily range): BP systolic 135–156; BP diastolic 61–84
[~2021-03-24] VITALS: Ht 157.5 cm; Wt 98.2 kg
[~2021-03-24 09:12] MED LIST changes: +BREX0.5T PO; +CLINDAMYCIN 600 MG/50 ML IVPB 50 ML IV ONE; +LACTATED RINGERS 1,000 ML IV PRN; +oxyCODONE/APAP 10/325MG (PERCOCET 10) TABLET PO PRN
[2021-03-24] MEDS ORDERED: CLINDAMYCIN 600 MG/50 ML IVPB 50 ML IV ONE (10:17)
[2021-03-24] MEDS ORDERED: MIDAZOLAM 2 MG/2 ML (VERSED) VIAL ONE (10:30)
[2021-03-24] MEDS ORDERED: proPOfol 200 MG/20 ML (DIPRIVAN) VIAL IV ONE (10:30)
[2021-03-24] MEDS ORDERED: fentaNYL INJ 100 MCG/2 ML AMP ONE (10:30)
[2021-03-24] MEDS ORDERED: KETAMINE SYRINGE 50 MG/5 ML SYRINGE ONE (10:34)
[2021-03-24] MEDS ORDERED: BUPIVACAINE 0.5% 30 ML (SENSORCAINE) VIAL ONE (10:45)
[2021-03-24] MEDS ORDERED: LIDOCAINE/EPI 1%-1:100,000 (XYLOCAINE) 20ML ONE (10:45)
[2021-03-24] MEDS ORDERED: LIDOCAINE 1% INJ 20 ML 20 ML VIAL ONE (10:47)
--- NOTE | 2021-03-24 11:15 | Progress Note-Pre Operative ---
Pre-Operative Progress Note H&P Reviewed The H&P was reviewed, patient examined and no changes noted. Date Seen by Provider: Mar 24, 2021 Time Seen by Provider: 11:03 Date H&P Reviewed: Mar 24, 2021 Time H&P Reviewed: 07:11 Pre-Operative Diagnosis: right carpal tunnel syndrome DARY HAYDEN MD Mar 24, 2021 11:15
--- NOTE | 2021-03-24 11:16 | Progress Note-Post Operative ---
Post-Operative Progess Note Surgeon (s)/Workers' Compensation Mediator (s) Surgeon DARY HAYDEN MD Workers' Compensation Mediator: Ellis Shelby Pre-Operative Diagnosis right carpal tunnel syndrome Post-Operative Diagnosis right carpal tunnel syndrome Procedure & Operative Findings Date of Procedure 03/24/21 Procedure Performed/Findings right carpal tunnel release Anesthesia Type MAC plus local Estimated Blood Loss Estimated blood loss (mL): minimal Specimens/Packing Specimens Removed none Packing: none DARY HAYDEN MD Mar 24, 2021 11:16
--- NOTE | 2021-03-24 12:02 | Anesthesia-General Post-Op ---
MAC Patient Condition Mental Status/LOC: Same as Preop Cardiovascular: Satisfactory Nausea/Vomiting: Absent Respiratory: Satisfactory Pain: Controlled Complications: Absent Post Op Complications Complications None Follow Up Care/Instructions Patient Instructions None needed. Anesthesiology Discharge Order Discharge Order Patient is doing well, no complaints, stable vital signs, no apparent adverse anesthesia problems. No complications reported per nursing. BRITTANEY WHEELER CRNA Mar 24, 2021 12:02
--- NOTE | 2021-03-24 18:55 | OPERATIVE REPORT ---
DATE OF SERVICE: 03/24/2021 PREOPERATIVE DIAGNOSIS: Right carpal tunnel syndrome. POSTOPERATIVE DIAGNOSIS: Right carpal tunnel syndrome. PROCEDURE: Right open carpal tunnel release. SURGEON: Raul Hayden MD GROUNDS CARETAKER: Ellis Shelby, who assisted throughout the procedure and closed the incision. ANESTHESIA: Monitored anesthesia care plus local by Aleja Chauhan CRNA. TOURNIQUET TIME: 3 minutes at 250 mmHg. ESTIMATED BLOOD LOSS: Minimal. DRAINS: None. COMPLICATIONS: None. POSTOPERATIVE PLAN: Routine protocol. The patient was transferred to the recovery room awake and in stable condition. STATEMENT OF MEDICAL NECESSITY: The patient is a 70-year-old right hand dominant female with complaints of right hand pain and paresthesias. She had an EMG nerve conduction study, which revealed evidence of right carpal tunnel syndrome. She tried rest, activity modifications, and anti-inflammatories without relief. Due to functional impairment and failure to improve with conservative measures, the patient elected to proceed with surgical intervention. DESCRIPTION OF PROCEDURE: After risks and benefits of procedure were discussed and questions were answered, an informed consent was signed and placed on chart, the operative site was confirmed in the preoperative holding area initialed by the surgeon. The patient was then transferred to the operating room and after adequate levels of monitored anesthesia care were obtained, a timeout was called, confirming the operative site. Under sterile conditions, the incision site was infiltrated with combination of plain lidocaine and plain Marcaine. The right upper extremity was then prepped and draped in the usual sterile fashion with arm elevated, tourniquet inflated to 250 mmHg. An incision was made in line with the radial border of the ring finger over the transverse carpal ligament, the underlying soft tissues. The transverse carpal ligament was identified and sharply incised by pushing through with the scalpel blade. The median nerve was identified and carefully protected throughout the procedure and intact at the conclusion of the procedure. Distally, the transverse carpal ligament was confirmed fully released under direct visualization. Proximally, the transverse carpal ligament was spread above and below with dissection scissors and opened with a slightly open scissor edges while carefully protecting the nerve. This was confirmed fully released with a freer. The median nerve was identified and intact. The tourniquet was deflated. Pressure was used for hemostasis. Wound was copiously irrigated and closed with 4-0 nylon in running alternating horizontal mattress fashion. A soft dressing and splint were applied and the patient was transferred to the recovery room awake and in stable condition. Job ID: [id number] DocumentID: [id number] Dictated Date: 03/24/2021 11:48:20 Activities Officer Date: 03/24/2021 18:54:19 Dictated By: RAUL HAYDEN MD
== END 2021-03-24 13:50 | disposition home or self-care (01) ==
LOC: SDC 09:12
PROVIDERS: ATTEND Orthopaedic Surgery
DX: G56.01 Carpal tunnel syndrome, right upper limb (principal); E11.9 Type 2 diabetes mellitus without complications; I10 Essential (primary) hypertension; I48.91 Unspecified atrial fibrillation; K58.9 Irritable bowel syndrome, unspecified; J45.909 Unspecified asthma, uncomplicated; E03.9 Hypothyroidism, unspecified; K59.00 Constipation, unspecified; M79.7 Fibromyalgia; M54.30 Sciatica, unspecified side; K21.9 Gastro-esophageal reflux disease without esophagitis; J44.9 Chronic obstructive pulmonary disease, unspecified; F41.9 Anxiety disorder, unspecified; F32.A Depression, unspecified; Z90.49 Acquired absence of other specified parts of digestive tract; Z90.710 Acquired absence of both cervix and uterus; Z90.89 Acquired absence of other organs; Z79.02 Long term (current) use of antithrombotics/antiplatelets; Z79.890 Hormone replacement therapy; Z79.899 Other long term (current) drug therapy
CPT/HCPCS: 82947; 87081

== ENCOUNTER → 2021-04-13 | Outpatient (CLI) | payer MEDICARE ==
[~2021-04-13] MED LIST changes: -AMIO200T6 PO; +AMIO200T65 PO; -CLINDAMYCIN 600 MG/50 ML IVPB 50 ML IV ONE; +CYCL10TA25 PO; -CYCL10TA9 PO; -LACTATED RINGERS 1,000 ML IV PRN; -LEVO500T80 PO; +LEVO500T81 PO; +MONT-40 PO; -MONT10TA32 PO; -oxyCODONE/APAP 10/325MG (PERCOCET 10) TABLET PO PRN
--- NOTE | 2021-04-13 13:23 | Diagnostic Imaging Report ---
INDICATION: Postmenopausal screening COMPARISON: 03/25/2003 FINDINGS: AP Spine L1-L4: [BMD (g/cm2): 1.110] [T-Score: -0.8] [Z-Score: -0.2] [BMD Previous: 1.397] [BMD % Change: -20.5] LT Hip Neck: [BMD (g/cm2): 0.728] [T-Score: -2.2] [Z-Score: -1.2] LT Hip Total: [BMD (g/cm2):0.802] [T-Score:-1.6] [Z-Score: -0.9] [BMD Previous: 1.132] [BMD % Change: -29.2] RT Hip Neck: [BMD (g/cm2):0.818] [T-Score:-1.6] [Z-Score:-0.6] RT Hip Total: [BMD (g/cm2):0.821] [T-score:-1.5] [Z-Score:-0.8] [BMD Previous:1.088] [BMD % Change:-24.6] *Indicates significant change from prior examination based on 95% confidence level. World Health Organization criteria for BMD interpretation classify patients as Normal (T-score at or above -1.0), Osteopenic (T-score between -1.0 and -2.5) or Osteoporotic (T-score at or below -2.5). LIMITATIONS AND MODIFICATION: None. FRACTURE RISK (FRAX SCORE): The ten year probability of (%): Major Osteoporotic Fracture: [18.6] Hip Fracture: [3.9] IMPRESSION: 1. Osteopenia (Low bone mass). 2. Bone mineral density has decreased by a statistically significant amount, as detailed above. 3. See below National Osteoporosis Foundation guidelines on when to potentially initiate pharmacologic therapy. Based on the National Osteoporosis Foundation Guidelines, pharmacologic treatment should be initiated in any of the following, unless clinical conditions suggest otherwise: * Any patient with prior fragility fracture of the hip or vertebrae. A spine fracture indicates 5X risk for subsequent spine fracture and 2X risk for subsequent hip fracture. * Osteoporosis (T-score <-2.5). * Postmenopausal women and men age 50 and older with low bone mass/osteopenia (T-score between -1.0 and -2.5) by DXA and 10-year major osteoporotic fracture greater than 20% or a 10-year probability of hip fracture greater than 3%. These fracture risks are supplied above in the FRAX score, if applicable. * Clinician judgement and/or patient preferences may indicate treatment for people with 10-year fracture probabilities above or below these levels. Dictated by: Dictated on workstation # [id number]
== END ==
LOC: RAD 10:00
PROVIDERS: ATTEND Family Medicine
DX: Z13.820 Encounter for screening for osteoporosis (principal); M85.89 Other specified disorders of bone density and structure, multiple sites; Z78.0 Asymptomatic menopausal state
CPT/HCPCS: 77080

== ENCOUNTER 2021-05-19 09:30 | Outpatient (RCR) | payer MEDICARE | END 2021-05-21 | disposition still patient (30) | PROVIDERS: ATTEND Family Medicine Sports Medicine | DX: M17.11 Unilateral primary osteoarthritis, right knee (principal); M13.842 Other specified arthritis, left hand ==

== ENCOUNTER → 2021-06-21 | Outpatient (CLI) | payer MEDICARE ==
--- NOTE | 2021-06-21 15:37 | Diagnostic Imaging Report ---
INDICATION: Shortness of breath with left-sided chest pain. 2 view chest 06/21/2021 COMPARISON: 07/30/2018 FINDINGS: 2 view chest There is a left-sided loop recorder device stable from previous imaging. The heart is unremarkable. Pulmonary vasculature normal. Lungs and pleural spaces clear. IMPRESSION: 1. No acute cardiopulmonary process. Dictated by: Dictated on workstation # [id number]
== END ==
LOC: RAD 14:02
PROVIDERS: ATTEND Physician Assistant
DX: I25.10 Atherosclerotic heart disease of native coronary artery without angina pectoris (principal)
CPT/HCPCS: 71046

== ENCOUNTER → 2021-06-21 | Outpatient (RCR) | payer MEDICARE | END | disposition home or self-care (01) | PROVIDERS: ATTEND Family Medicine Sports Medicine | DX: M17.11 Unilateral primary osteoarthritis, right knee (principal); M13.842 Other specified arthritis, left hand; I10 Essential (primary) hypertension; E11.9 Type 2 diabetes mellitus without complications; J45.909 Unspecified asthma, uncomplicated ==

== ENCOUNTER 2021-07-29 03:18 | Emergency (ER) | payer MEDICARE ==
[~2021-07-29 03:18] MED LIST changes: -FLUC150T2 PO; +FLUC150T41 PO
[2021-07-29 03:42] LABS: BASOPHILS % (AUTO) 1 % (0-10); EOSINOPHILS # (AUTO) 0.3 10^3/uL (0.0-0.3); EOSINOPHILS % (AUTO) 4 % (0-10); HEMATOCRIT 36 % (35-52); HEMOGLOBIN 11.4 g/dL (11.5-16.0); LYMPHOCYTES % (AUTO) 26 % (12-44); MEAN CORPUSCULAR HEMOGLOBIN 31 pg (25-34); MEAN CORPUSCULAR HGB CONC 32 g/dL (32-36); MEAN CORPUSCULAR VOLUME 98 fL (80-99); MEAN PLATELET VOLUME 10.3 fL (9.0-12.2); MONOCYTES # (AUTO) 0.5 10^3/uL (0.0-1.0); MONOCYTES % (AUTO) 6 % (0-12); NEUTROPHILS # (AUTO) 4.9 10^3/uL (1.8-7.8); NEUTROPHILS % (AUTO) 63 % (42-75); PLATELET COUNT 191 10^3/uL (130-400); WHITE BLOOD COUNT 7.8 10^3/uL (4.3-11.0)
--- NOTE | 2021-07-29 03:42 | ED Fall/Injury ---
General Chief Complaint: Trauma-Non Activation Stated Complaint: FALL Nursing Triage Note: TO ED VIA [facility] FROM [facility]. PT HAD UNWITNESSED FALL ON WAY TO BATHROOM AND HIT HEAD. HEMATOMA NOTED TO RIGHT FOREHEAD. C/O PAIN TO RIGHT SHOULDER AND RIGHT KNEE AND PAIN BETWEEN SHOULDER BLADES. PT GOT UP BY HERSELF AND WAS ABLE TO PUSH CALL LIGHT FOR HELP. DENIES LOC. PT TAKES ELIQUIS. Source: patient, retirement records History of Present Illness Date Seen by Provider: Jul 29, 2021 Time Seen by Provider: 03:23 Initial Comments PT ARRIVES VIA EMS FROM [facility] PT HAD AN UNWITNESSED FALL JUST PRIOR TO ARRIVAL STATES SHE WAS GETTING UP TO GO TO THE BATHROOM AND LOST HER BALANCE AND FELL, HITTING HER HEAD AND RIGHT SHOULDER, AND LANDING ON HER RIGHT KNEE PT STATES SHE THINKS SHE HIT HER FOREHEAD ON HER WALKER PT DENIES LOSS OF CONSCIOUSNESS PT WAS ABLE TO GET BACK UP ON HER OWN AND WALK TO HER CALL LIGHT C/O PAIN TO FOREHEAD C/O PAIN TO RIGHT SHOULDER C/O PAIN TO RIGHT KNEE DOES HAVE SOME NECK AND UPPER BACK PAIN WELL--UNABLE TO PLACE IN C-COLLAR DUE TO BODY HABITUS. NO VISION CHANGES NO PARESTHESIAS OR MOTOR DEFICITS NO DIZZINESS NO NAUSEA AND VOMITING PT IS ON ELIQUIS FOR ATRIAL FIBRILLATION PT IS CURRENTLY ON DOXYCYCLINE + VALCYCLOVIR FOR A SINUS INFECTION. STATES SHE HAS HAD VINES'S PALSY MORE THAN ONCE WHEN SHE HAS HAD A SINUS INFECTION AND IS PRESCRIBED VALCYCLOVIR FOR POSSIBLE PREVENTION OF THAT. PT IS ALLERGIC TO TETANUS/DIPHTHERIA VACCINE. PCP: DR. JOHNSON Allergies and Home Medications Allergies Coded Allergies: Penicillins (Verified Allergy, Severe, SWELLING, HIVES, THROAT SWELLED, 01/21/16) PATIENT HAS RECEIVED CEFEPIME WITHOUT ISSUE Sulfa (Sulfonamide Antibiotics) (Verified Allergy, Severe, TONGUE SWELLED, 01/21/16) Tetanus & Diphtheria Tox,Adult (Verified Allergy, Severe, SWELLING OF THROAT, 01/21/16) codeine (Verified Allergy, Unknown, HAS RECEIVED LORTAB IN THE PAST, 01/21/16) egg (Unverified Allergy, Unknown, 06/29/16) FROM UNCODED ALLERGIES Patient Home Medication List Home Medication List Reviewed: Yes Acetaminophen (Tylenol) 325 Mg Capsule, 325-650 MG PO Q6H PRN for PAIN-MILD (1- 4) OR TEMPATURE, (Reported) Entered as Reported by: GISELA COLLAZO on 04/01/20 1343 Allopurinol (Allopurinol) 100 Mg Tablet, 100 MG PO DAILY, (Reported) Entered as Reported by: GISELA COLLAZO on 04/01/20 1343 Alprazolam (Alprazolam) 0.5 Mg Tablet, 0.5 MG PO BID PRN for ANXIETY, (Reported) Entered as Reported by: TEDDY BAXTER on 01/14/16 1025 Amiodarone HCl (Amiodarone HCl) 200 Mg Tablet, 200 MG PO DAILY, (Reported) Entered as Reported by: ISRAEL TERRY on 09/30/20 1159 Apixaban (Eliquis) 5 Mg Tablet, 5 MG PO BID, (Reported) Entered as Reported by: TEDDY BAXTER on 08/14/15 1519 Azelastine HCl (Azelastine HCl) 137 Mcg/0.137 Ml Fertile.pump, 1 SPRAY NA TID, (Reported) Entered as Reported by: GISELA COLLAZO on 04/01/20 1343 Brexpiprazole (Rexulti) 0.5 Mg Tablet, 0.5 MG PO DAILY, (Reported) Entered as Reported by: JACKELYN SOTELO on 03/19/21 1534 Bupropion HCl (Bupropion Xl) 300 Mg Tab.er.24h, 300 MG PO DAILY, (Reported) Entered as Reported by: GISELA COLLAZO on 04/01/20 1343 Calcium Carbonate (Calcium) 500 Mg Tablet, 1,000 MG PO DAILY, (Reported) Entered as Reported by: GISELA COLLAZO on 04/01/20 1343 Carboxymethylcellulose Sodium (Refresh Liquigel) 15 Ml Drp.lq.gel, 1 DROP OU DAILY PRN for DRY EYES, (Reported) Entered as Reported by: ISRAEL TERRY on 09/30/20 1159 Cholecalciferol (Vitamin D3) (Vitamin D3) 125 Mcg Tablet, 125 MCG PO DAILY, (Reported) Entered as Reported by: GISELA COLLAZO on 04/01/20 1343 Colestipol HCl (Colestipol HCl) 1 Gm Tablet, 1 GM PO BID, (Reported) Entered as Reported by: TEDDY BAXTER on 12/26/14 0914 Cyanocobalamin (Cyanocobalamin Injection) 1,000 Mcg/Ml Inj, 1,000 MCG IM MONTHLY, (Reported) Entered as Reported by: ISRAEL TERRY on 09/30/20 1212 Docusate Sodium (Colace) 100 Mg Capsule, 100 MG PO DAILY, (Reported) Entered as Reported by: GISELA COLLAZO on 04/01/20 1343 Famotidine (Famotidine) 40 Mg Tablet, 40 MG PO 1999, (Reported) Entered as Reported by: GISELA COLLAZO on 04/01/20 1343 Ferrous Sulfate (Ferrous Sulfate) 325 Mg Tablet, 325 MG PO DAILY, (Reported) Entered as Reported by: TEDDY BAXTER on 07/30/18 0959 Fluticasone Propionate (Fluticasone Propionate) 16 Gm Fertile.susp, 1 SPRAY NSEACH BID, (Reported) Entered as Reported by: GISELA COLLAZO on 04/01/20 1343 Fluticasone/Salmeterol (Advair 250-50 Diskus) 1 Each Blst.w.dev, 1 EACH IH BID, (Reported) Entered as Reported by: ISRAEL TERRY on 09/30/20 1159 Furosemide (Furosemide) 40 Mg Tablet, 40 MG PO DAILY, (Reported) Entered as Reported by: ISRAEL TERRY on 09/30/20 1159 Gabapentin (Neurontin) 300 Mg Capsule, 900 MG PO TID, (Reported) Entered as Reported by: GISELA COLLAZO on 04/01/20 1343 Guaifenesin (Mucinex) 600 Mg Tab.er.12h, 600 MG PO BID PRN for SINUS DRAINAGE, (Reported) Entered as Reported by: ISRAEL TERRY on 09/30/20 1159 Insulin Glargine,Hum.rec.anlog (Toujeo Solostar) 300 Unit/1 Ml Insuln.pen, 30 UNIT SQ HS, (Reported) Entered as Reported by: TEDDY BAXTER on 07/30/18 0959 Insulin Lispro (Insulin Lispro Kwikpen U-100) 100 Unit/1 Ml Insuln.pen, UNITS SC TIDWM, (Reported) Entered as Reported by: GISELA COLLAZO on 04/01/20 1343 Levalbuterol HCl (Xopenex) 1.25 Mg/3 Ml Vial.neb, 1.25 MG NEB Q6H PRN for SHORTNESS OF BREATH, (Reported) Entered as Reported by: TEDDY BAXTER on 07/30/18 0959 Levocetirizine Dihydrochloride (Xyzal) 5 Mg Tablet, 5 MG PO DAILY, (Reported) Entered as Reported by: ISRAEL TERRY on 09/30/20 1159 Levothyroxine Sodium (Synthroid) 25 Mcg Tablet, 50 MCG PO 0700, (Reported) Entered as Reported by: ISRAEL TERRY on 09/30/20 1159 Metoprolol Succinate (Metoprolol Succinate) 25 Mg Tab.er.24h, 25 MG PO DAILY, (Reported) Entered as Reported by: ISRAEL TERRY on 09/30/20 115 Nystatin (Nyamyc) 15 Gm Powder, 1 APPLIC TOP QID PRN for RASH, (Reported) Entered as Reported by: GISELA COLLAZO on 04/01/20 1343 Ondansetron (Ondansetron Odt) 4 Mg Tab.rapdis, 4 MG PO TID PRN for NAUSEA/VOMITING-1ST LINE, (Reported) Entered as Reported by: ISRAEL TERRY on 09/30/20 1212 Pantoprazole Sodium (Pantoprazole Sodium) 20 Mg Tablet.dr, 20 MG PO DAILY, (Reported) Entered as Reported by: GISELA COLLAZO on 04/01/20 1343 Potassium Chloride (Potassium Chloride) 20 Meq Tablet.er, 20 MEQ PO DAILY, (Reported) Entered as Reported by: ISRAEL TERRY on 09/30/20 1159 Ropinirole HCl (Ropinirole HCl) 1 Mg Tablet, 1 MG PO BID, (Reported) Entered as Reported by: TEDDY BAXTER on 01/14/16 1025 Sodium Chloride/Aloe Vera ([place] Saline Nasal Gel) 14.1 Gm Gel..gram., 1 APPLIC NA HS, (Reported) Entered as Reported by: GISELA COLLAZO on 04/01/20 1343 Sucralfate (Carafate) 1 Gm/10 Ml Oral.susp, 1 GM PO QID, (Reported) Entered as Reported by: ISRAEL TERRY on 09/30/20 1159 Zafirlukast (Zafirlukast) 20 Mg Tablet, 20 MG PO BID, (Reported) Entered as Reported by: ISRAEL TERRY on 09/30/20 0117 Review of Systems Review of Systems Constitutional: no symptoms reported Eyes: No Symptoms Reported Ears, Nose, Mouth, Throat: no symptoms reported Respiratory: no symptoms reported Cardiovascular: no symptoms reported Gastrointestinal: no symptoms reported Genitourinary: no symptoms reported Musculoskeletal: see HPI Skin: other (ABRASION TO RIGHT FOREHEAD) Psychiatric/Neurological: No Symptoms Reported Past Lsqezyd-Ibpilc-Bffxrj Hx Immunizations Up To Date Tetanus Booster (TDap): Unknown PED Vaccines UTD: Yes Influenza Vaccine Up-to-Date: No; Not Current First/Initial COVID19 Vaccinat: YES Second COVID19 Vaccination Bimal: YES Third COVID19 Vaccination Date: 02/2021 COVID19 Vaccine Proposal Editor: [facility] 2 VACCINES PLUS BOOSTER Seasonal Allergies Seasonal Allergies: Yes Past Medical History Surgeries: Yes (KNEE SCOPES X3 - D&C'S; CARDIAC ABLATION FOR A. 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, 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 Sexually Transmitted Disease: No HIV/AIDS: No Genitourinary: Yes UTI-Chronic Gastrointestinal: Yes Colitis, Gastroesophageal Reflux, Diverticulosis, Polyps, Irritable Bowel Musculoskeletal: Yes (CHRONIC BACK PAIN AND SCIATICA; CHRONIC NECK AND SHOULDER PAIN; ) Arthritis, Fibromyalgia, Chronic Back Pain Endocrine: Yes (OBESITY) Diabetes, Insulin dep, Hypothyroidsim HEENT: Yes Tonsilitis Loss of Vision: Denies Hearing Impairment: Denies Cancer: No Psychosocial: Yes Anxiety, Depression Integumentary: No Blood Disorders: Yes (CHRONIC ANEMIA) Adverse Reaction/Blood Tranf: No Family Medical History Cardiovascular disease 19 FATHER 19 MOTHER Colon cancer Diabetes mellitus 19 MOTHER Irritable bowel syndrome G8 BROTHER Myocardial infarction 19 FATHER 19 MOTHER TIAs 19 MOTHER Heart Disease, CAD Over 55 Years Old, CVA, Diabetes, GI Disease, Hypertension, Stroke, Vascular Disease Physical Exam Vital Signs Vital Signs - First Documented 07/29/21 03:22 Temp 36.5 Pulse 74 Resp 20 B/P (MAP) 142/69 (93) Pulse Ox 99 O2 Delivery Nasal Cannula O2 Flow Rate 2.00 Capillary Refill : Less Than 3 Seconds Height, Weight, BMI Height: 5'5.00" Weight: 225lbs. 0.0oz. 102.122222ve; 39.58 BMI Method:Estimated General Appearance: WD/WN, no apparent distress, obese, other (VERY PLEASANT, TALKATIVE. DOES NOT APPEAR TO BE IN ANY DISCOMFORT OR DISTRESS. ) HEENT: PERRL/EOMI, normal ENT inspection, TMs normal, pharynx normal, other (LARGE HEMATOMA TO RIGHT FORHEAD WITH VERY SUPERFICIAL SKIN ABRASION TO THE AREA. NO BLEEDING. ) Neck: tender lateral, tender midline, other (MILD MID AND LOWER NECK TEND ERNESS) Cardiovascular: regular rate, rhythm, no murmur Respiratory: chest non-tender, normal breath sounds, no respiratory distress, no accessory muscle use Peripheral Pulses: 2+ Dorsalis Pedis (R), 2+ Left Dors-Pedis (L), 2+ Radial Pulses (R), 2+ Radial Pulses (L) Gastrointestinal: non tender, soft Back: other (MILD MID AND UPPER BACK TENDERNESS. ) Extremities: normal capillary refill, other (MILD RIGHT SHOULDER TENDERNESS, MILD RIGHT KNEE TENDERNESS. NO SWELLING OR BRUISING OR DEFORMITY TO THESE AREAS. PT DOES HAVE NORMAL ROM, AND SENSORY/VASCULAR IS INTACT. FEET/ANKLES WITH 1+ EDEMA BILATERALLY) Neurologic/Psychiatric: linux consultant II-XII nml as tested, no motor/sensory deficits, alert, normal mood/affect, oriented x 3 Skin: normal color, warm/dry, ecchymosis (TO FOREHEAD), other (ABRASION TO FOREHEAD NOTED ABOVE) Sandoval Coma Score Best Eye Response: (4) Open Spontaneously Best Verbal Response: (5) Oriented Best Motor Response: (6) Obeys Commands [place] Total: 15 Progress/Results/Core Measures Results/Orders Lab Results Laboratory Tests Test 07/29/21 03:30 Range/Units White Blood Count 7.8 4.3-11.0 10^3/uL Red Blood Count 3.65 L 3.80-5.11 10^6/uL Hemoglobin 11.4 L 11.5-16.0 g/dL Hematocrit 36 35-52 % Mean Corpuscular Volume 98 80-99 fL Mean Corpuscular Hemoglobin 31 25-34 pg Mean Corpuscular Hemoglobin Concent 32 32-36 g/dL Red Cell Distribution Width 14.5 10.0-14.5 % Platelet Count 191 130-400 10^3/uL Mean Platelet Volume 10.3 9.0-12.2 fL Immature Granulocyte % (Auto) 1 % Neutrophils (%) (Auto) 63 42-75 % Lymphocytes (%) (Auto) 26 12-44 % Monocytes (%) (Auto) 6 0-12 % Eosinophils (%) (Auto) 4 0-10 % Basophils (%) (Auto) 1 0-10 % Neutrophils # (Auto) 4.9 1.8-7.8 10^3/uL Lymphocytes # (Auto) 2.0 1.0-4.0 10^3/uL Monocytes # (Auto) 0.5 0.0-1.0 10^3/uL Eosinophils # (Auto) 0.3 0.0-0.3 10^3/uL Basophils # (Auto) 0.0 0.0-0.1 10^3/uL Immature Granulocyte # (Auto) 0.1 0.0-0.1 10^3/uL Prothrombin Time 15.2 H 12.2-14.7 SEC INR Comment 1.2 0.8-1.4 Activated Partial Thromboplast Time 37 H 24-35 SEC Sodium Level 143 135-145 MMOL/L Potassium Level 4.4 3.6-5.0 MMOL/L Chloride Level 107 98-107 MMOL/L Carbon Dioxide Level 25 21-32 MMOL/L Anion Gap 11 5-14 MMOL/L Blood Urea Nitrogen 26 H 7-18 MG/DL Creatinine 1.32 H 0.60-1.30 MG/DL Estimat Glomerular Filtration Rate 43 BUN/Creatinine Ratio 20 Glucose Level 184 H 70-105 MG/DL Calcium Level 9.0 8.5-10.1 MG/DL Corrected Calcium 9.3 8.5-10.1 MG/DL Total Bilirubin 0.2 0.1-1.0 MG/DL Aspartate Amino Transf (AST/SGOT) 13 5-34 U/L Alanine Aminotransferase (ALT/SGPT) 15 0-55 U/L Alkaline Phosphatase 82 40-136 U/L Total Protein 6.2 L 6.4-8.2 GM/DL Albumin 3.6 3.2-4.5 GM/DL My Orders Orders - WOODY CHEN DO Ed Iv/Invasive Line Start (07/29/21 03:28) O2 (07/29/21 03:28) Monitor-Rhythm Ecg Trace Only (07/29/21) Ct Head/Face/Cervical Wo (07/29/21) Ct Thoracic/Lumbar Spine Wo (07/29/21) Chest 1 View, Ap/Pa Only (07/29/21) Shoulder, Right, 3 Views (07/29/21) Femur, Right, 2 Views (07/29/21) Knee, Right, 3 Views (07/29/21) Pelvis (07/29/21) Cbc With Automated Diff (07/29/21) Comprehensive Metabolic Panel (07/29/21) Protime With Inr (07/29/21) Partial Thromboplastin Time (07/29/21:) Vital Signs/I&O 07/29/21 07/29/21 07/29/21 03:25 03:29 Temp 36.5 Pulse 74 Resp 20 B/P (MAP) 142/69 (93) Pulse Ox 99 O2 Delivery Nasal Cannula Nasal Cannula Nasal Cannula O2 Flow Rate 2.00 2.00 2.00 Blood Pressure Mean: 93 Progress Progress Note : Progress Note UNEVENTFUL ER STAY Diagnostic Imaging Comments CXR--NO ACUTE PROCESS, PENDING RADIOLOGIST REVIEW RIGHT SHOULDER--NO ACUTE PROCESS, PENDING RADIOLOGIST REVIEW PELVIS XRAYS--NO ACUTE PROCESS, PENDING RADIOLOGIST REVIEW RIGHT FEMUR--NO ACUTE PROCESS, PENDING RADIOLOGIST REVIEW RIGHT KNEE --NO ACUTE PROCESS, PENDING RADIOLOGIST REVIEW CT HEAD/MAXILLOFACIALS/CERVICAL SPINE--NO ACUTE PROCESS, PER [facility] VIA FAX AT 0537 CT THORACIC/LUMBAR SPINE--NO ACUTE PROCESS, PER [facility] VIA FAX AT 0534 Reviewed: Reviewed by Me Departure Impression Primary Impression: Fall from standing Additional Impressions: Minor head injury without loss of consciousness FACIAL CONTUSION AND ABRASION NECK AND BACK STRAIN Contusion of right shoulder Contusion of right knee Disposition: 03 XFER SNF Condition: Stable Departure-Patient Inst. Decision time for Depature: 05:43 Referrals: DAISY JOHNSON MD, RYAN C MD (PCP) Primary Care Physician Patient Instructions: Back Muscle Strain (DC), Contusion (DC), Minor Head Injury (DC), Neck Sprain (DC), Preventing Falls in the Older Adult, Skin Abrasions (DC) Add. Discharge Instructions: ICE TO SORE AREAS AT 20 MINUTE INTERVALS TAKE YOUR PAIN MEDICATIONS PRESCRIBED FOLLOW UP WITH DR. JOHNSON NEEDED, RETURN TO ER IF PROBLEMS All discharge instructions reviewed with patient and/or family. Voiced understanding. WOODY CHEN DO Jul 29, 2021 03:42
[2021-07-29 03:54] LABS: ALBUMIN 3.6 GM/DL (3.2-4.5); POTASSIUM 4.4 MMOL/L (3.6-5.0)
[2021-07-29 03:56] LABS: INR 1.2 (0.8-1.4); PROTHROMBIN TIME PATIENT 15.2 SEC (12.2-14.7)
[2021-07-29 03:57] LABS: TOTAL PROTEIN 6.2 GM/DL (6.4-8.2)
[2021-07-29 03:59] LABS: BILIRUBIN,TOTAL 0.2 MG/DL (0.1-1.0)
[2021-07-29 04:00] LABS: CREATININE SERUM 1.32 MG/DL (0.60-1.30)
[2021-07-29 06:01] VITALS: BP 146/10
--- NOTE | 2021-07-29 06:04 | Diagnostic Imaging Report ---
INDICATION: Fall. Shoulder pain. FINDINGS: There are acromioclavicular and glenohumeral joint osteoarthritic changes. There are AC joint spurs. There are no findings of shoulder dislocation or findings of acute fracture. The morphology of humeral head is normal. Visualized portion of right lung demonstrates no consolidation, pleural collection or pneumothorax. IMPRESSION: 1. AC joint and glenohumeral joint osteoarthritic changes without findings of malalignment or acute fracture. Dictated by: Dictated on workstation # [id number]
--- NOTE | 2021-07-29 06:06 | Diagnostic Imaging Report ---
Right femur series. INDICATION: Fall. Hip and leg pain. FINDINGS: There are moderate osteoarthritic changes present at the hip and severe osteoarthritic changes present within the knee. There are no findings of cortical disruption to suggest an acute fracture. There is no femoral head collapse. The visualized portion of the pelvic ring is intact. There is no suspicious osseous lesion. IMPRESSION: 1. Moderate right hip and severe right knee osteoarthritic changes. 2. No findings of hip dislocation, malalignment or acute fracture. Dictated by: Dictated on workstation # [id number]
--- NOTE | 2021-07-29 06:10 | Diagnostic Imaging Report ---
INDICATION: Fall. Knee pain. FINDINGS: There are severe tricompartmental arthritic changes present throughout the right knee with advanced tricompartmental joint space loss and osteophyte formation. There is no identified acute fracture line or malalignment. There is no significant knee joint effusion. IMPRESSION: Severe end-stage tricompartmental arthritic changes in the right knee without findings of malalignment, acute fracture or significant joint effusion. Dictated by: Dictated on workstation # [id number]
--- NOTE | 2021-07-29 06:10 | Diagnostic Imaging Report ---
INDICATION: Pelvic pain. FINDINGS: There is no hip dislocation or evidence of pelvic diastases. There is no disruption of the cortex of the pelvic ring. There is moderate osteoarthritic joint space narrowing within both hips. There is no femoral head collapse or identified proximal femoral fracture. There are lower lumbar degenerative endplate changes and facet arthropathy present as well. IMPRESSION: 1. Moderate bilateral osteoarthritic joint space narrowing within the hips. There are no plain film findings of an acute proximal femoral or pelvic fracture. There is no diastases. Dictated by: Dictated on workstation # [id number]
--- NOTE | 2021-07-29 06:24 | Diagnostic Imaging Report ---
INDICATION: Fall. Chest pain. Comparison made to the prior study from November 11, 2020. FINDINGS: There is a subcutaneous loop recorder present. There is stable enlargement of the cardiac silhouette. There are chronic interstitial changes within the lungs but no findings of new pneumonia or edema. There is no effusion or pneumothorax. There are degenerative changes present throughout the spine as well as arthritic changes within the shoulders. No acute osseous abnormality evident. IMPRESSION: 1. Stable appearance of the chest. No new or acute cardiopulmonary process is evident. Dictated by: Dictated on workstation # [id number]
--- NOTE | 2021-07-29 06:50 | Diagnostic Imaging Report ---
CLINICAL INDICATION: Patient status post fall. Exam: Axial CT scan of the thoracic and lumbar spine performed without IV contrast. Sagittal and coronal reformations were performed. Bone and soft tissue windows were created. Auto Exposure Controls were utilized during the CT exam to meet ALARA standards for radiation dose reduction. Comparison: CT scan of the thoracic and lumbar spine without contrast dated 06/04/2018. Findings: There is no acute thoracic or lumbar fracture or dislocation. Thoracic and lumbar spine have normal alignment. There are hypertrophic spurs seen throughout the thoracic and lumbar spine. There is lower lumbar spine facet arthropathy/hypertrophy. Thoracic spine shows no significant bony central canal or neural foramen narrowing. There is at least moderate central canal stenosis at the L4-L5 level. There is at least moderate left L4-L5 neural foramen narrowing. There is no significant paraspinal soft tissue abnormality. IMPRESSION: There is no acute thoracic spine and lumbar spine fracture or dislocation. I agree with [facility] report. Dictated by: Dictated on workstation # [id number]
--- NOTE | 2021-07-29 06:54 | Diagnostic Imaging Report ---
Clinical indications: Patient status post fall. Exam: Axial Head CT without IV contrast with sagittal and coronal reformations. Axial Maxillofacial CT scan without IV contrast with sagittal and coronal reformations. Axial CT scan of the cervical spine with sagittal and coronal reformations. Auto Exposure Controls were utilized during the CT exam to meet ALARA standards for radiation dose reduction. Comparison: Head CT and cervical spine CT scan without contrast dated 11/11/2020. CT scan of the head, face, and cervical spine without contrast dated 06/04/2018. Findings: Head and maxillofacial CT: There is no evidence of acute cerebral infarct, intracranial hemorrhage, or gross mass effect. There is very minimal fat density along the mid falx cerebri region measuring roughly 7 mm and may represent a small area of fat/lipoma. The brain parenchymal volume appears appropriate for patient's age. There are mild patchy areas of low-attenuation white matter changes involving both cerebral hemispheres, likely representing chronic small vessel ischemic disease and leukoaraiosis. There is normal edge-white matter distinction. There is no significant midline shift or herniation. The visualized [place] vascular structures have normal flow void appearance. There is no evidence of hydrocephalus. The basal cisterns are unremarkable. There is a moderate size area of extracranial soft tissue swelling involving the midline and right forehead region. There is no skull or maxillofacial fracture. There is mild mucosal thickening involving the ethmoid sinus, frontal sinus and left maxillary sinus. There is small to moderate amount of mucosal thickening involving the sphenoid sinus. Orbits and globes are intact. The temporal bone structures show no significant abnormality. Cervical spine: There is no acute cervical spine fracture or dislocation. There are hypertrophic flowing osteophytes seen from the C2-T2 levels which may be related to DISH. There is no significant neck soft tissue abnormality. Visualized upper lung oliveira are clear. Impression: 1: There is no evidence of acute intracranial process. There is no intracranial hemorrhage. There is no skull or maxillofacial fracture. 2: There is cervical spine degenerative disease with no acute fracture or dislocation. 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 I agree with [facility] report. Dictated by: Dictated on workstation # [id number]
== END 2021-07-29 06:05 ==
LOC: EDUNIT# 03:18 → ER 03:20
DX: S16.1XXA Strain of muscle, fascia and tendon at neck level, initial encounter (principal); S29.012A Strain of muscle and tendon of back wall of thorax, initial encounter; S00.83XA Contusion of other part of head, initial encounter; S40.011A Contusion of right shoulder, initial encounter; S80.01XA Contusion of right knee, initial encounter; I48.91 Unspecified atrial fibrillation; J32.9 Chronic sinusitis, unspecified; Z79.01 Long term (current) use of anticoagulants; Z79.2 Long term (current) use of antibiotics; Z88.7 Allergy status to serum and vaccine; W18.30XA Fall on same level, unspecified, initial encounter; Y92.009 Unspecified place in unspecified non-institutional (private) residence as the place of occurrence of the external cause
CPT/HCPCS: 36415; 70450; 70486; 71045; 72125; 72128; 72131; 72170; 73030; 73552; 73562; 80053; 85025; 85610; 85730; 93041

== ENCOUNTER 2021-09-13 14:28 | Observation (INO) | payer MEDICARE ==
[~2021-09-13] VITALS: Ht 157 cm; Wt 104.3 kg
[2021-09-13] VITALS (13 sets, daily range): BP systolic 112–149; BP diastolic 59–85
[~2021-09-13 14:28] MED LIST changes: -AZEL137S11; +AZEL137S11 NSEACH; -FEXO-46 PO; +NF-ALLE180 PO; -SODI0.5GEL; +SODI0.5GEL NSEACH
--- NOTE | 2021-09-13 15:22 | ED Chest Pain ---
General Chief Complaint: Chest Pain Stated Complaint: CP,R ARM PAIN Nursing Triage Note: pt states hx of a-fib, chest pain in upper and rt chest since 1200. has a sinus infection. Source: patient Exam Limitations: no limitations History of Present Illness Date Seen by Provider: Sep 13, 2021 Time Seen by Provider: 14:56 Initial Comments Patient presents ER by private vehicle with a chief complaint of 3 hours prior to arrival about 11:00 in the morning so right-sided chest pain with some numbness tingling on down her right arm. Initially was at a peak of 8 out of 10 and has come down since she arrived at the ER. She did take her home meds today and she is on Eliquis for atrial fibrillation which she took today. She took her regular oxycodone at noon which did not immediately help with her pain. She did not take any extra aspirin or nitroglycerin. No history of chest trauma recently. She does have COPD. She is known to Dr. Dyer and Dr. MOTTA. She is also complaining of progressively worsening bilateral lower leg edema over the past week. She has some worsening shortness of air. She has had a occasional cough productive of a little bit of clear phlegm. She has orthopnea. She says her edema is significantly worse in her legs however she does not do daily weights Patient has a history of mild coronary disease, hypertension, hyperlipidemia, diabetes and a cardiac catheterization by Dr. Dyer 2020 demonstrating mild nonobstructive coronary disease. Echocardiogram by Dr. Dyer 2020 demonstrates EF of 55 to 65% with grade 1 diastolic dysfunction. Allergies and Home Medications Allergies Coded Allergies: Penicillins (Verified Allergy, Severe, SWELLING, HIVES, THROAT SWELLED, 01/21/16) PATIENT HAS RECEIVED CEFEPIME WITHOUT ISSUE Sulfa (Sulfonamide Antibiotics) (Verified Allergy, Severe, TONGUE SWELLED, 01/21/16) Tetanus & Diphtheria Tox,Adult (Verified Allergy, Severe, SWELLING OF THROAT, 01/21/16) codeine (Verified Allergy, Unknown, HAS RECEIVED LORTAB IN THE PAST, 01/21/16) egg (Unverified Allergy, Unknown, 06/29/16) FROM UNCODED ALLERGIES Patient Home Medication List Home Medication List Reviewed: Yes Acetaminophen (Tylenol) 325 Mg Capsule, 325-650 MG PO Q6H PRN for PAIN-MILD (1- 4) OR TEMPATURE, (Reported) Entered as Reported by: GISELA COLLAZO on 04/01/20 1343 Allopurinol (Allopurinol) 100 Mg Tablet, 100 MG PO DAILY, (Reported) Entered as Reported by: GISELA COLLAZO on 04/01/20 1343 Alprazolam (Alprazolam) 0.5 Mg Tablet, 0.5 MG PO BID PRN for ANXIETY, (Reported) Entered as Reported by: TEDDY BAXTER on 01/14/16 1025 Amiodarone HCl (Amiodarone HCl) 200 Mg Tablet, 200 MG PO DAILY, (Reported) Entered as Reported by: ISRAEL TERRY on 09/30/20 1159 Apixaban (Eliquis) 5 Mg Tablet, 5 MG PO BID, (Reported) Entered as Reported by: TEDDY BAXTER on 08/14/15 1519 Azelastine HCl (Azelastine HCl) 137 Mcg/0.137 Ml Hoskins.pump, 1 SPRAY NA TID, (Reported) Entered as Reported by: GISELA COLLAZO on 04/01/20 1343 Brexpiprazole (Rexulti) 0.5 Mg Tablet, 0.5 MG PO DAILY, (Reported) Entered as Reported by: JACKELYN SOTELO on 03/19/21 1534 Bupropion HCl (Bupropion Xl) 300 Mg Tab.er.24h, 300 MG PO DAILY, (Reported) Entered as Reported by: GISELA COLLAZO on 04/01/20 1343 Calcium Carbonate (Calcium) 500 Mg Tablet, 1,000 MG PO DAILY, (Reported) Entered as Reported by: GISELA COLLAZO on 04/01/20 1343 Carboxymethylcellulose Sodium (Refresh Liquigel) 15 Ml Drp.lq.gel, 1 DROP OU DAILY PRN for DRY EYES, (Reported) Entered as Reported by: ISRAEL TERRY on 09/30/20 1159 Cholecalciferol (Vitamin D3) (Vitamin D3) 125 Mcg Tablet, 125 MCG PO DAILY, (Reported) Entered as Reported by: GISELA COLLAZO on 04/01/20 1343 Colestipol HCl (Colestipol HCl) 1 Gm Tablet, 1 GM PO BID, (Reported) Entered as Reported by: TEDDY BAXTER on 12/26/14 0914 Cyanocobalamin (Cyanocobalamin Injection) 1,000 Mcg/Ml Inj, 1,000 MCG IM MONTHLY, (Reported) Entered as Reported by: ISRAEL TERRY on 09/30/20 1212 Docusate Sodium (Colace) 100 Mg Capsule, 100 MG PO DAILY, (Reported) Entered as Reported by: GISELA COLLAZO on 04/01/20 1343 Famotidine (Famotidine) 40 Mg Tablet, 40 MG PO 1999, (Reported) Entered as Reported by: GISELA COLLAZO on 04/01/20 1343 Ferrous Sulfate (Ferrous Sulfate) 325 Mg Tablet, 325 MG PO DAILY, (Reported) Entered as Reported by: TEDDY BAXTER on 07/30/18 0959 Fluticasone Propionate (Fluticasone Propionate) 16 Gm Hoskins.susp, 1 SPRAY NSEACH BID, (Reported) Entered as Reported by: GISELA COLLAZO on 04/01/20 1343 Fluticasone/Salmeterol (Advair 250-50 Diskus) 1 Each Blst.w.dev, 1 EACH IH BID, (Reported) Entered as Reported by: ISRAEL TERRY on 09/30/20 1159 Furosemide (Furosemide) 40 Mg Tablet, 40 MG PO DAILY, (Reported) Entered as Reported by: ISRAEL TERRY on 09/30/20 1159 Gabapentin (Neurontin) 300 Mg Capsule, 900 MG PO TID, (Reported) Entered as Reported by: GISELA COLLAZO on 04/01/20 1343 Guaifenesin (Mucinex) 600 Mg Tab.er.12h, 600 MG PO BID PRN for SINUS DRAINAGE, (Reported) Entered as Reported by: ISRAEL TERRY on 09/30/20 1159 Insulin Glargine,Hum.rec.anlog (Toujeo Solostar) 300 Unit/1 Ml Insuln.pen, 30 UNIT SQ HS, (Reported) Entered as Reported by: TEDDY BAXTER on 07/30/18 0959 Insulin Lispro (Insulin Lispro Kwikpen U-100) 100 Unit/1 Ml Insuln.pen, UNITS SC TIDWM, (Reported) Entered as Reported by: GISELA COLLAZO on 04/01/20 1343 Levalbuterol HCl (Xopenex) 1.25 Mg/3 Ml Vial.neb, 1.25 MG NEB Q6H PRN for SHORTNESS OF BREATH, (Reported) Entered as Reported by: TEDDY BAXTER on 07/30/18 0959 Levocetirizine Dihydrochloride (Xyzal) 5 Mg Tablet, 5 MG PO DAILY, (Reported) Entered as Reported by: ISRAEL TERRY on 09/30/20 1159 Levothyroxine Sodium (Synthroid) 25 Mcg Tablet, 50 MCG PO 0700, (Reported) Entered as Reported by: ISRAEL TERRY on 09/30/20 1159 Metoprolol Succinate (Metoprolol Succinate) 25 Mg Tab.er.24h, 25 MG PO DAILY, (Reported) Entered as Reported by: ISRAEL TERRY on 09/30/20 1159 Nystatin (Nyamyc) 15 Gm Powder, 1 APPLIC TOP QID PRN for RASH, (Reported) Entered as Reported by: GISELA COLLAZO on 04/01/20 1343 Ondansetron (Ondansetron Odt) 4 Mg Tab.rapdis, 4 MG PO TID PRN for NAUSEA/VOMITING-1ST LINE, (Reported) Entered as Reported by: ISRAEL TERRY on 09/30/20 1212 Pantoprazole Sodium (Pantoprazole Sodium) 20 Mg Tablet.dr, 20 MG PO DAILY, (Reported) Entered as Reported by: GISELA COLLAZO on 04/01/20 1343 Potassium Chloride (Potassium Chloride) 20 Meq Tablet.er, 20 MEQ PO DAILY, (Reported) Entered as Reported by: ISRAEL TERRY on 09/30/20 1159 Ropinirole HCl (Ropinirole HCl) 1 Mg Tablet, 1 MG PO BID, (Reported) Entered as Reported by: TEDDY BAXTER on 01/14/16 1025 Sodium Chloride/Aloe Vera ([place] Saline Nasal Gel) 14.1 Gm Gel..gram., 1 APPLIC NA HS, (Reported) Entered as Reported by: GISELA COLLAZO on 04/01/20 1343 Sucralfate (Carafate) 1 Gm/10 Ml Oral.susp, 1 GM PO QID, (Reported) Entered as Reported by: ISRAEL TERRY on 09/30/20 1159 Zafirlukast (Zafirlukast) 20 Mg Tablet, 20 MG PO BID, (Reported) Entered as Reported by: ISRAEL TERRY on 09/30/20 6579 Review of Systems Review of Systems Constitutional: No chills, No diaphoresis EENTM: No Blurred Vision, No Double Vision Respiratory: Cough, Orthopnea, Shortness of Air Cardiovascular: Chest Pain; Denies Lightheadedness Gastrointestinal: Denies Abdominal Pain, Denies Constipated, Denies Diarrhea; Nausea Genitourinary: Denies Burning, Denies Discharge Musculoskeletal: No back pain, No joint pain All Other Systems Reviewed Negative Unless Noted: Yes Past Anzvgyo-Fjyumc-Dqviji Hx Patient Social History Tobacco Use?: No Substance use?: No Alcohol Use?: No Immunizations Up To Date Tetanus Booster (TDap): Unknown PED Vaccines UTD: Yes Influenza Vaccine Up-to-Date: No; Not Current First/Initial COVID19 Vaccinat: YES Second COVID19 Vaccination Bimal: YES Third COVID19 Vaccination Date: 02/2021 COVID19 Vaccine 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, 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 Sexually Transmitted Disease: No HIV/AIDS: No Genitourinary: Yes UTI-Chronic Gastrointestinal: Yes Colitis, Gastroesophageal Reflux, Diverticulosis, Polyps, Irritable Bowel Musculoskeletal: Yes (CHRONIC BACK PAIN AND SCIATICA; CHRONIC NECK AND SHOULDER PAIN; ) Arthritis, Fibromyalgia, Chronic Back Pain Endocrine: Yes (OBESITY) Diabetes, Insulin dep, Hypothyroidsim HEENT: Yes Tonsilitis Loss of Vision: Denies Hearing Impairment: Denies Cancer: No Psychosocial: Yes Anxiety, Depression Integumentary: No Blood Disorders: Yes (CHRONIC ANEMIA) Adverse Reaction/Blood Tranf: No Family Medical History Cardiovascular disease 19 FATHER 19 MOTHER Colon cancer Diabetes mellitus 19 MOTHER Irritable bowel syndrome G8 BROTHER Myocardial infarction 19 FATHER 19 MOTHER TIAs 19 MOTHER Heart Disease, CAD Over 55 Years Old, CVA, Diabetes, GI Disease, Hypertension, Stroke, Vascular Disease Physical Exam Vital Signs Vital Signs - First Documented 09/13/21 14:37 Temp 35.8 Pulse 73 Resp 22 B/P (MAP) 113/78 (90) O2 Delivery Nasal Cannula O2 Flow Rate 2.00 Capillary Refill : Less Than 3 Seconds Height, Weight, BMI Height: 5'5.00" Weight: 225lbs. 0.0oz. [id number]; 38.00 BMI Method:Estimated General Appearance: No Apparent Distress, Obese HEENT: PERRL/EOMI, Pharynx Normal, Moist Mucous Membranes Neck: Full Range of Motion, Normal Inspection Respiratory: No Accessory Muscle Use, No Respiratory Distress, Crackles (Faint crackles left worse than right on the bilateral bases) Cardiovascular: Regular Rate, Rhythm, No Edema, Normal Peripheral Pulses Gastrointestinal: Normal Bowel Sounds, Non Tender, Soft Extremity: Normal Capillary Refill, Pedal Edema (3+ pitting) Neurologic/Psychiatric: Alert, Oriented x3, No Motor/Sensory Deficits Skin: Normal Color, Warm/Dry Progress/Results/Core Measures Results/Orders Lab Results Laboratory Tests Test 09/13/21 14:45 09/13/21 15:41 Range/Units White Blood Count 9.6 4.3-11.0 10^3/uL Red Blood Count 3.70 L 3.80-5.11 10^6/uL Hemoglobin 11.5 11.5-16.0 g/dL Hematocrit 36 35-52 % Mean Corpuscular Volume 98 80-99 fL Mean Corpuscular Hemoglobin 31 25-34 pg Mean Corpuscular Hemoglobin Concent 32 32-36 g/dL Red Cell Distribution Width 13.9 10.0-14.5 % Platelet Count 255 130-400 10^3/uL Mean Platelet Volume 10.3 9.0-12.2 fL Immature Granulocyte % (Auto) 2 % Neutrophils (%) (Auto) 70 42-75 % Lymphocytes (%) (Auto) 20 12-44 % Monocytes (%) (Auto) 6 0-12 % Eosinophils (%) (Auto) 3 0-10 % Basophils (%) (Auto) 1 0-10 % Neutrophils # (Auto) 6.7 1.8-7.8 10^3/uL Lymphocytes # (Auto) 1.9 1.0-4.0 10^3/uL Monocytes # (Auto) 0.5 0.0-1.0 10^3/uL Eosinophils # (Auto) 0.2 0.0-0.3 10^3/uL Basophils # (Auto) 0.1 0.0-0.1 10^3/uL Immature Granulocyte # (Auto) 0.2 H 0.0-0.1 10^3/uL Prothrombin Time 16.1 H 12.2-14.7 SEC INR Comment 1.3 0.8-1.4 Activated Partial Thromboplast Time 39 H 24-35 SEC D-Dimer < 0.27 0.00-0.49 UG/ML Sodium Level 140 135-145 MMOL/L Potassium Level 4.3 3.6-5.0 MMOL/L Chloride Level 100 98-107 MMOL/L Carbon Dioxide Level 25 21-32 MMOL/L Anion Gap 15 H 5-14 MMOL/L Blood Urea Nitrogen 25 H 7-18 MG/DL Creatinine 1.48 H 0.60-1.30 MG/DL Estimat Glomerular Filtration Rate 38 BUN/Creatinine Ratio 17 Glucose Level 108 H 70-105 MG/DL Calcium Level 9.0 8.5-10.1 MG/DL Corrected Calcium 9.0 8.5-10.1 MG/DL Magnesium Level 2.1 1.6-2.4 MG/DL Total Bilirubin 0.3 0.1-1.0 MG/DL Aspartate Amino Transf (AST/SGOT) 19 5-34 U/L Alanine Aminotransferase (ALT/SGPT) 26 0-55 U/L Alkaline Phosphatase 88 40-136 U/L Myoglobin 78.7 10.0-92.0 NG/ML Troponin I < 0.028 <0.028 NG/ML B-Type Natriuretic Peptide 48.9 <100.0 PG/ML Total Protein 6.8 6.4-8.2 GM/DL Albumin 4.0 3.2-4.5 GM/DL Lipase 29 8-78 U/L Blood Gas Puncture Site R RADIAL Blood Gas Patient Temperature 35.8 Arterial Blood pH 7.40 7.37-7.43 Arterial Blood Partial Pressure CO2 48 H 35-45 MMHG Arterial Blood Partial Pressure O2 102 H 79-93 MMHG Arterial Blood HCO3 29 H 23-27 MMOL/L Arterial Blood Total CO2 31.0 21.0-31.0 MMOL/L Arterial Blood Oxygen Saturation 99 94-100 % Arterial Blood Base Excess 4.6 H -2.5-2.5 MMOL/L Gómez Test YES-POS Blood Gas Ventilator Setting NO Blood Gas Inspired Oxygen 2L My Orders Orders - MIYA CORREA Continuous Ekg Monitoring (09/13/21 15:03) Ekg Tracing (09/13/21 15:03) Cbc With Automated Diff (09/13/21 15:23) Magnesium (09/13/21 15:23) Chest 1 View, Ap/Pa Only (09/13/21 15:23) Comprehensive Metabolic Panel (09/13/21 15:23) Myoglobin Serum (09/13/21 15:23) Protime With Inr (09/13/21 15:23) Partial Thromboplastin Time (09/13/21 15:23) O2 (09/13/21 15:23) Lipid Panel (09/14/21 06:00) Ed Iv/Invasive Line Start (09/13/21 15:23) Lipase (09/13/21 15:23) Bnp Keith (09/13/21 15:23) Fibrin Degradation Products (09/13/21 15:23) Troponin I [place] (09/13/21 15:23) Aspirin Chewable Tablet (Baby Aspirin Ch (09/13/21 15:30) Arterial Blood Gas (09/13/21 16:08) Medications Given in ED Current Medications Medications Dose Ordered Sig/Jorge Route Start Time Stop Time Status Last Admin Dose Admin Aspirin 324 mg ONCE ONCE PO 09/13/21 15:30 09/13/21 15:31 DC 09/13/21 15:29 324 MG Vital Signs/I&O 09/13/21 14:37 Temp 35.8 Pulse 73 Resp 22 B/P (MAP) 113/78 (90) O2 Delivery Nasal Cannula O2 Flow Rate 2.00 Blood Pressure Mean: 90 Progress Progress Note : Time: 16:04 Progress Note Patient has significant bipedal edema, shortness of breath, pulmonary congestion on the x-ray and some crackles heard on bilateral bases. She is on her baseline 2 L by nasal cannula. We will get an ABG to rule out COPD exacerbation. Initial ECG Impression Date: Sep 13, 2021 Initial ECG Impression Time: 14:41 Initial ECG Rate: 74 Initial ECG Intervals: QT (456) Initial ECG Impression: Normal Comment Sinus rhythm without clinically relevant ST elevation or depression Diagnostic Imaging Diagonstic Imaging: Xray Plain Films/CT/US/NM/MRI: chest Comments [facility] [place], [place] NAME: FAUSTINO LOCO [facility] REC#: [id number] PT STATUS: REG ER : 1950 PHYSICIAN: MIYA CORREA MD ADMIT DATE: 09/13/21/ER Signed Date of Exam:09/13/21 CHEST 1 VIEW, AP/PA ONLY INDICATION: Chest pain. Frontal chest obtained at 3:38 p.m. and compared to 07/29/2021. FINDINGS: There is cardiomegaly. Loop recorder device is seen overlying the chest wall. There is mild central vascular prominence. There is no focal infiltrate or pneumothorax or pleural fluid. IMPRESSION: Cardiomegaly and mild central vascular congestion. No focal infiltrate or pleural fluid. Dictated by: Dictated on workstation # [id number] Dict: 09/13/21 1535 Trans: 09/13/211701 [id number] Interpreted by: VIRA ONEIL MD Electronically signed by: VIRA ONEIL MD 09/13/211701 Reviewed: Reviewed by Me Departure Communication (Admissions) Time/Spoke to Admitting Phy: 17:50 Discussed the case with Dr. Motta and she agrees to observe the patient with consult to cardiology. Time/Spoke to Consulting Phy: 17:43 Dr. Cotto, cardiology is okay to consult on the case if we will make sure she has something else besides nitroglycerin for pain. Impression Primary Impression: Chest pain Qualified Codes: R07.9 - Chest pain, unspecified Additional Impression: ACS (acute coronary syndrome) Disposition: ADMITTED INPATIENT Condition: Stable Admissions Decision to Admit Reason: Admit from ER (General) Decision to Admit/Date: Sep 13, 2021 Time/Decision to Admit Time: 17:30 Departure-Patient Inst. Referrals: DAISY MOTTA MD (PCP/Family) Primary Care Physician MIYA CORREA Sep 13, 2021 15:22
[2021-09-13] MEDS ORDERED: ASPIRIN 81 MG CHEW (CHILDREN'S ASA) PO ONE (15:30)
[2021-09-13 15:35] LABS: POTASSIUM 4.3 MMOL/L (3.6-5.0)
[2021-09-13 15:37] LABS: TOTAL PROTEIN 6.8 GM/DL (6.4-8.2)
--- NOTE | 2021-09-13 15:37 | Diagnostic Imaging Report ---
INDICATION: Chest pain. Frontal chest obtained at 3:38 p.m. and compared to 07/29/2021. FINDINGS: There is cardiomegaly. Loop recorder device is seen overlying the chest wall. There is mild central vascular prominence. There is no focal infiltrate or pneumothorax or pleural fluid. IMPRESSION: Cardiomegaly and mild central vascular congestion. No focal infiltrate or pleural fluid. Dictated by: Dictated on workstation # [id number]
[2021-09-13 15:39] LABS: BILIRUBIN,TOTAL 0.3 MG/DL (0.1-1.0)
[2021-09-13 15:41] LABS: CREATININE SERUM 1.48 MG/DL (0.60-1.30)
[2021-09-13 15:43] LABS: INR 1.3 (0.8-1.4); PROTHROMBIN TIME PATIENT 16.1 SEC (12.2-14.7)
[2021-09-13 15:44] LABS: MAGNESIUM 2.1 MG/DL (1.6-2.4)
[2021-09-13 15:48] LABS: BASOPHILS # (AUTO) 0.1 10^3/uL (0.0-0.1); BASOPHILS % (AUTO) 1 % (0-10); EOSINOPHILS # (AUTO) 0.2 10^3/uL (0.0-0.3); EOSINOPHILS % (AUTO) 3 % (0-10); HEMATOCRIT 36 % (35-52); HEMOGLOBIN 11.5 g/dL (11.5-16.0); LYMPHOCYTES # (AUTO) 1.9 10^3/uL (1.0-4.0); LYMPHOCYTES % (AUTO) 20 % (12-44); MEAN CORPUSCULAR HEMOGLOBIN 31 pg (25-34); MEAN CORPUSCULAR HGB CONC 32 g/dL (32-36); MEAN CORPUSCULAR VOLUME 98 fL (80-99); MEAN PLATELET VOLUME 10.3 fL (9.0-12.2); MONOCYTES # (AUTO) 0.5 10^3/uL (0.0-1.0); MONOCYTES % (AUTO) 6 % (0-12); NEUTROPHILS # (AUTO) 6.7 10^3/uL (1.8-7.8); NEUTROPHILS % (AUTO) 70 % (42-75); PLATELET COUNT 255 10^3/uL (130-400); WHITE BLOOD COUNT 9.6 10^3/uL (4.3-11.0)
[2021-09-13 16:12] LABS: ABG BASE EXCESS 4.6 MMOL/L (-2.5-2.5); ABG OXYGEN SATURATION 99 % (94-100); ABG PCO2 48 MMHG (35-45); ABG PO2 102 MMHG (79-93)
[2021-09-13 16:13] LABS: ALLENS TEST YES-POS; INSPIRED O2 2L; PATIENT TEMP 35.8; VENTILATOR NO
[2021-09-13] MEDS ORDERED: ONDANSETRON 4 MG/2 ML (SDV) Z0FRAN IV PRN (19:00)
[2021-09-13] MEDS ORDERED: ACETAMINOPHEN 325 MG TABLET PO PRN (19:00)
[2021-09-13] MEDS ORDERED: CATHETER FLUSH 10 ML SYR IVP PRN (19:00)
[2021-09-13] MEDS ORDERED: morphine INJ 4 MG/ML 1 ML (VIAL/SYRINGE) IV PRN (19:00)
[2021-09-13] MEDS ORDERED: NITROGLYCERIN 0.4 MG SL TABS BTL 25'S SL PRN (19:00)
[2021-09-13] MEDS ORDERED: HYDROcodone/APAP 5 MG/325 MG (LORTAB) TAB PO PRN (19:00)
[2021-09-13] MEDS ORDERED: RT-ALBUTEROL SULF 2.5 MG/3 ML PRE-MIX VIAL INH PRN (21:45)
[2021-09-13] MEDS: inSUlin ASPART (NovoLOG) 1 UNIT/0.01 ML (CHARGE PER UNIT) SC SCH (21:47)
[2021-09-13] MEDS: CATHETER FLUSH 10 ML SYR IVP SCH (22:23)
[2021-09-14 00:37] VITALS: BP 135/82
[2021-09-14 01:37] VITALS: BP 114/74
[2021-09-14 04:31] VITALS: BP 106/74
[2021-09-14] MEDS: inSUlin ASPART (NovoLOG) 1 UNIT/0.01 ML (CHARGE PER UNIT) SC SCH ×2 (05:28→10:47)
[2021-09-14] MEDS: CATHETER FLUSH 10 ML SYR IVP SCH (05:42)
[2021-09-14 06:19] LABS: BASOPHILS % (AUTO) 0 % (0-10); EOSINOPHILS # (AUTO) 0.2 10^3/uL (0.0-0.3); EOSINOPHILS % (AUTO) 3 % (0-10); HEMATOCRIT 36 % (35-52); LYMPHOCYTES # (AUTO) 1.8 10^3/uL (1.0-4.0); LYMPHOCYTES % (AUTO) 24 % (12-44); MEAN CORPUSCULAR HEMOGLOBIN 31 pg (25-34); MEAN CORPUSCULAR HGB CONC 31 g/dL (32-36); MEAN CORPUSCULAR VOLUME 99 fL (80-99); MEAN PLATELET VOLUME 10.1 fL (9.0-12.2); MONOCYTES # (AUTO) 0.5 10^3/uL (0.0-1.0); MONOCYTES % (AUTO) 6 % (0-12); NEUTROPHILS % (AUTO) 66 % (42-75); PLATELET COUNT 221 10^3/uL (130-400); WHITE BLOOD COUNT 7.6 10^3/uL (4.3-11.0)
[2021-09-14 06:45] LABS: BUN/CREATININE RATIO 21; CALCIUM 8.8 MG/DL (8.5-10.1); CARBON DIOXIDE 27 MMOL/L (21-32); CHLORIDE 104 MMOL/L (98-107); CHOLESTEROL 149 MG/DL (< 200); CREATININE SERUM 1.17 MG/DL (0.60-1.30); GFR ESTIMATED 50; GLUCOSE 106 MG/DL (70-105); HDL CHOLESTEROL 51 MG/DL (40-60); POTASSIUM 4.2 MMOL/L (3.6-5.0); SODIUM 143 MMOL/L (135-145); TRIGLYCERIDES 108 MG/DL (<150); VLDL CHOLESTEROL 22 MG/DL (5-40)
[2021-09-14 07:30] VITALS: BP 165/81
--- NOTE | 2021-09-14 08:10 | Diagnostic Imaging Report ---
HISTORY: Chest pain. Unstable angina. TECHNIQUE: Frontal view of the chest. COMPARISON: 09/13/2021 FINDINGS: There is mild cardiomegaly. Lung volumes are low. No consolidation is seen. There is no pleural effusion or pneumothorax. A threat monitoring analyst device is noted. IMPRESSION: 1. Low lung volumes with mild cardiomegaly. Dictated by: Dictated on workstation # [id number]
[2021-09-14] MEDS ORDERED: RT-ALBUTEROL SULF 2.5 MG/3 ML PRE-MIX VIAL INH SCH (09:00)
[2021-09-14] MEDS ORDERED: FUROSEMIDE 40 MG/4 ML INJ (LASIX) IVP ONE (09:00)
[2021-09-14] MEDS ORDERED: ASPIRIN E.C. 81 MG (ECOTRIN) TAB PO SCH (09:00)
[2021-09-14] MEDS ORDERED: FUROSEMIDE 40 MG/4 ML INJ (LASIX) ONE (10:24)
--- NOTE | 2021-09-14 10:28 | Short Stay Summary ---
History of Present Illness History of Present Illness Reason for visit/HPI PT IS A 71 Y/O FEMALE WHO IS KNOWN TO ME FROM CLINIC. PT REPORTS THAT SHE HAS BEEN STRESSED AT HER ASSISTED LIVING FACILITY. SHE STATES THAT SOME OF THE STAFF AT THE FACILITY IS NOT NICE TO OTHER PEOPLE AT THE ASSISTED LIVING AND THIS UPSETS HER. SHE STATES THAT SHE WAS UPSET AT ONE OF THE MEALS, HAD A HARD TIME EATING DUE TO BEING UPSET, WENT BACK TO HER ROOM AND HAD PAIN IN HER ARM ON THE RIGHT SIDE, THEN HAD PAIN THAT WENT INTO HER CHEST LATER IN THE DAY, SHE TOLD THE STAFF ABOUT HER PAIN, AND WAS TAKEN TO THE ER, HER WORK-UP WAS NEGATIVE FOR CARDIAC ABNORMALITY. SHE IS NOW NOT HAVING ANY PAIN IN HER CHEST AND IS FEELING BETTER. SHE DOES NOTE SWELLING IN HER LEGS. Date of Admission Sep 13, 2021 at 17:50 Date of Discharge 09/14/21 Time Seen by Provider: 11:30 Attending Physician Daisy Motta MD Admitting Physician Daisy Motta MD Consult DR. CLEMENTE Allergies and Home Medications Allergies Coded Allergies: Penicillins (Verified Allergy, Severe, SWELLING, HIVES, THROAT SWELLED, 01/21/16) PATIENT HAS RECEIVED CEFEPIME WITHOUT ISSUE Sulfa (Sulfonamide Antibiotics) (Verified Allergy, Severe, TONGUE SWELLED, 01/21/16) Tetanus & Diphtheria Tox,Adult (Verified Allergy, Severe, SWELLING OF THROAT, 01/21/16) codeine (Verified Allergy, Unknown, HAS RECEIVED LORTAB IN THE PAST, 01/21/16) egg (Unverified Allergy, Unknown, 06/29/16) FROM UNCODED ALLERGIES Patient Home Medication List Home Medication List Reviewed: Yes Acetaminophen (Tylenol) 325 Mg Capsule, 325-650 MG PO Q6H PRN for PAIN-MILD (1- 4) OR TEMPATURE, (Reported) Entered as Reported by: GISELA COLLAZO on 04/01/20 1343 Allopurinol (Allopurinol) 100 Mg Tablet, 100 MG PO DAILY, (Reported) Entered as Reported by: GISELA COLLAZO on 04/01/20 1343 Alprazolam (Alprazolam) 0.5 Mg Tablet, 0.5 MG PO BID PRN for ANXIETY, (Reported) Entered as Reported by: TEDDY BAXTER on 01/14/16 1025 Amiodarone HCl (Amiodarone HCl) 200 Mg Tablet, 200 MG PO DAILY, (Reported) Entered as Reported by: ISRAEL TERRY on 09/30/20 1159 Apixaban (Eliquis) 5 Mg Tablet, 5 MG PO BID, (Reported) Entered as Reported by: TEDDY BAXTER on 08/14/15 1519 Azelastine HCl (Azelastine HCl) 137 Mcg/0.137 Ml [place].pump, 1 SPRAY NA TID, (Reported) Entered as Reported by: GISELA COLLAZO on 04/01/20 1343 Brexpiprazole (Rexulti) 0.5 Mg Tablet, 0.5 MG PO DAILY, (Reported) Entered as Reported by: JACKELYN SOTELO on 03/19/21 1534 Bupropion HCl (Bupropion Xl) 300 Mg Tab.er.24h, 300 MG PO DAILY, (Reported) Entered as Reported by: GISELA COLLAZO on 04/01/20 1343 Calcium Carbonate (Calcium) 500 Mg Tablet, 1,000 MG PO DAILY, (Reported) Entered as Reported by: GISELA COLLAZO on 04/01/20 1343 Carboxymethylcellulose Sodium (Refresh Liquigel) 15 Ml Drp.lq.gel, 1 DROP OU DAILY PRN for DRY EYES, (Reported) Entered as Reported by: ISRAEL TERRY on 09/30/20 1159 Cholecalciferol (Vitamin D3) (Vitamin D3) 125 Mcg Tablet, 125 MCG PO DAILY, (Reported) Entered as Reported by: GISELA COLLAZO on 04/01/20 1343 Colestipol HCl (Colestipol HCl) 1 Gm Tablet, 1 GM PO BID, (Reported) Entered as Reported by: TEDDY BAXTER on 12/26/14 0914 Cyanocobalamin (Cyanocobalamin Injection) 1,000 Mcg/Ml Inj, 1,000 MCG IM MONTHLY, (Reported) Entered as Reported by: ISRAEL TERRY on 09/30/20 1212 Docusate Sodium (Colace) 100 Mg Capsule, 100 MG PO DAILY, (Reported) Entered as Reported by: GISELA COLLAZO on 04/01/20 1343 Famotidine (Famotidine) 40 Mg Tablet, 40 MG PO 1999, (Reported) Entered as Reported by: GISELA COLLAZO on 04/01/20 1343 Ferrous Sulfate (Ferrous Sulfate) 325 Mg Tablet, 325 MG PO DAILY, (Reported) Entered as Reported by: TEDDY BAXTER on 07/30/18 0959 Fluticasone Propionate (Fluticasone Propionate) 16 Gm [place].susp, 1 SPRAY NSEACH BID, (Reported) Entered as Reported by: GISELA COLLAZO on 04/01/20 134 Fluticasone/Salmeterol (Advair 250-50 Diskus) 1 Each Blst.w.dev, 1 EACH IH BID, (Reported) Entered as Reported by: ISRAEL TERRY on 09/30/20 115 Furosemide (Furosemide) 40 Mg Tablet, 40 MG PO DAILY, (Reported) Entered as Reported by: ISRAEL TERRY on 09/30/20 115 Gabapentin (Neurontin) 300 Mg Capsule, 900 MG PO TID, (Reported) Entered as Reported by: GISELA COLLAZO on 04/01/20 134 Guaifenesin (Mucinex) 600 Mg Tab.er.12h, 600 MG PO BID PRN for SINUS DRAINAGE, (Reported) Entered as Reported by: ISRAEL TERRY on 09/30/20 115 Insulin Glargine,Hum.rec.anlog (Toujeo Solostar) 300 Unit/1 Ml Insuln.pen, 30 UNIT SQ HS, (Reported) Entered as Reported by: TEDDY BAXTER on 07/30/18958 Insulin Lispro (Insulin Lispro Kwikpen U-100) 100 Unit/1 Ml Insuln.pen, UNITS SC TIDWM, (Reported) Entered as Reported by: GISELA COLLAZO on 04/01/20 134 Levalbuterol HCl (Xopenex) 1.25 Mg/3 Ml Vial.neb, 1.25 MG NEB Q6H PRN for SHORTNESS OF BREATH, (Reported) Entered as Reported by: TEDDY BAXTER on 07/30/18 0959 Levocetirizine Dihydrochloride (Xyzal) 5 Mg Tablet, 5 MG PO DAILY, (Reported) Entered as Reported by: ISRAEL TERRY on 09/30/20 115 Levothyroxine Sodium (Synthroid) 25 Mcg Tablet, 50 MCG PO 0700, (Reported) Entered as Reported by: ISRAEL TERRY on 09/30/20 1159 Metoprolol Succinate (Metoprolol Succinate) 25 Mg Tab.er.24h, 25 MG PO DAILY, (Reported) Entered as Reported by: ISRAEL TERRY on 09/30/20 1159 Nystatin (Nyamyc) 15 Gm Powder, 1 APPLIC TOP QID PRN for RASH, (Reported) Entered as Reported by: GISELA COLLAZO on 04/01/20 1343 Ondansetron (Ondansetron Odt) 4 Mg Tab.rapdis, 4 MG PO TID PRN for NAUSEA/VOMITING-1ST LINE, (Reported) Entered as Reported by: ISRAEL TERRY on 09/30/20 1212 Pantoprazole Sodium (Pantoprazole Sodium) 20 Mg Tablet.dr, 20 MG PO DAILY, (Reported) Entered as Reported by: GISELA COLLAZO on 04/01/20 1343 Potassium Chloride (Potassium Chloride) 20 Meq Tablet.er, 20 MEQ PO DAILY, (Reported) Entered as Reported by: ISRAEL TERRY on 09/30/20 1159 Ropinirole HCl (Ropinirole HCl) 1 Mg Tablet, 1 MG PO BID, (Reported) Entered as Reported by: TEDDY BAXTER on 01/14/16 1025 Sodium Chloride/Aloe Vera ([place] Saline Nasal Gel) 14.1 Gm Gel..gram., 1 APPLIC NA HS, (Reported) Entered as Reported by: GISELA COLLAZO on 04/01/20 1343 Sucralfate (Carafate) 1 Gm/10 Ml Oral.susp, 1 GM PO QID, (Reported) Entered as Reported by: ISRAEL TERRY on 09/30/20 1159 Zafirlukast (Zafirlukast) 20 Mg Tablet, 20 MG PO BID, (Reported) Entered as Reported by: ISRAEL TERRY on 09/30/20 1159 Past Vqjvsgq-Iymcqy-Aaakrq Hx Patient Social History Marrital Status: Number of Children: 2 Number of living children: 2 Living Status: [facility] 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 FIB; LINQ LOOP RECORDER ) Appendectomy, Breast, Cardiac, Section, Gallbladder, 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, Oophorectomy, Orthopedic, Tonsillectomy Respiratory Yes (CHRONIC DYSPNEA ON EXERTION; O2 DEPENDENCE) Asthma, COPD Currently Using CPAP: No Currently Using BIPAP: No Cardiovascular Yes (C/P CARDIAC ABLATION AND LINQ LOOP RECORDER; CHF) Atrial Fibrillation, Chronic Edema/Swelling, Coronary Artery Disease, High Cholesterol, Hypertension, Palpitations Neurological Yes (VINES'S PALSY) Neuropathy Reproductive System Hx Reproductive Disorders: No Sexually Transmitted Disease: No HIV/AIDS: No Female Reproductive Disorders: Ovarian Cyst SAUTE CHEF History: 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, Menopausal Genitourinary Yes UTI-Chronic Gastrointestinal Yes Colitis, Gastroesophageal Reflux, Diverticulosis, Polyps, Irritable Bowel Musculoskeletal Yes (CHRONIC BACK PAIN AND SCIATICA; CHRONIC NECK AND SHOULDER PAIN; ) Arthritis, Fibromyalgia, Chronic Back Pain Endocrine History of Endocrine Disorders: Yes (OBESITY) Endocrine Disorders: Diabetes, Insulin dep, Hypothyroidsim HEENT History of HEENT Disorders: Yes HEENT Disorders: Tonsilitis Loss of Vision: Denies Hearing Impairment: Denies Cancer No Psychosocial History of Psychiatric Problem: Yes Behavioral Health Disorders: Anxiety, Depression Integumentary History of Skin or Integumenta: No Blood Transfusions History of Blood Disorders: Yes (CHRONIC ANEMIA) Adverse Reaction to a Blood Tr: No Reviewed Nursing Assessment Reviewed/Agree w Nursing PMH: Yes Family Medical History Significant Family History: Heart Disease, CAD Over 55 Years Old, CVA, Diabetes, GI Disease, Hypertension, Stroke, Vascular Disease Family Hx: Cardiovascular disease 19 FATHER 19 MOTHER Colon cancer Diabetes mellitus 19 MOTHER Irritable bowel syndrome G8 BROTHER Myocardial infarction 19 FATHER 19 MOTHER TIAs 19 MOTHER Review of Systems Constitutional: No chills, No fever, No malaise; weakness (CHRONIC) EENTM: nose congestion; No throat pain Respiratory: No cough; dyspnea on exertion, short of breath (CHRONIC) Cardiovascular: chest pain (NOW RESOLVED), edema, Hx of Intervention; No palpitations; vascular heart diseas Gastrointestinal: No abdominal pain, No constipation, No diarrhea, No nausea, No vomiting Genitourinary: no symptoms reported Musculoskeletal: No back pain, No muscle pain, No muscle stiffness; muscle weakness Skin: No dryness, No rash Psychiatric/Neurological: Anxiety, Depressed, Weakness All Other Systems Reviewed Negative Unless Noted: Yes Physical Exam Vital Signs Vital Signs - First Documented 09/13/21 09/13/21 09/13/21 14:37 14:40 20:03 Temp 35.8 Pulse 73 Resp 22 B/P (MAP) 113/78 (90) Pulse Ox 96 O2 Delivery Nasal Cannula O2 Flow Rate 2.00 FiO2 28 Capillary Refill : Less Than 3 Seconds Height, Weight, BMI Height: 5'5.00" Weight: 225lbs. 0.0oz. 102.221408xm; 42.31 BMI Method:Estimated General Appearance: No Apparent Distress, WD/WN HEENT: PERRL/EOMI, Pharynx Normal Neck: Full Range of Motion, Non Tender, Supple Respiratory: Chest Non Tender, Lungs Clear, Normal Breath Sounds, No Accessory Muscle Use, No Respiratory Distress Cardiovascular: Systolic Murmur, Irregularly Irregular Gastrointestinal: Normal Bowel Sounds, No Organomegaly, No Pulsatile Mass, Non Tender, Soft Rectal: Deferred Extremity: Normal Capillary Refill, Non Tender, No Calf Tenderness, Pedal Edema Neurologic/Psychiatric: Alert, Oriented x3, No Motor/Sensory Deficits, Normal 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, 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 as 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 Skin: Normal Color, Warm/Dry Lymphatic: No Adenopathy Short Stay Diagnosis Discharge Diagnosis-Short Stay Admission Diagnosis: CHEST PAIN EDEMA HYPERTENSION DIABETES MELLITUS CHRONIC RENAL INSUFFICIENCY ANXIETY DEPRESSION PERIPHERAL NEUROPATHY ESOPHAGEAL REFLUX IRON DEFICIENCY ANEMIA COPD CHRONIC SINUSITIS CHRONIC ALLERGIC RHINITIS OXYGEN DEPENDENCE Final Discharge Diagnosis: CHEST PAIN EDEMA HYPERTENSION DIABETES MELLITUS CHRONIC RENAL INSUFFICIENCY ANXIETY DEPRESSION PERIPHERAL NEUROPATHY ESOPHAGEAL REFLUX IRON DEFICIENCY ANEMIA COPD CHRONIC SINUSITIS CHRONIC ALLERGIC RHINITIS OXYGEN DEPENDENCE Conclusion Labs Laboratory Tests 09/13/21 14:45: White Blood Count 9.6, Red Blood Count 3.70L, Hemoglobin 11.5, Hematocrit 36, Mean Corpuscular Volume 98, Mean Corpuscular Hemoglobin 31, Mean Corpuscular Hemoglobin Concent 32, Red Cell Distribution Width 13.9, Platelet Count 255, Mean Platelet Volume 10.3, Immature Granulocyte % (Auto) 2, Neutrophils (%) (Auto) 70, Lymphocytes (%) (Auto) 20, Monocytes (%) (Auto) 6, Eosinophils (%) (Auto) 3, Basophils (%) (Auto) 1, Neutrophils # (Auto) 6.7, Lymphocytes # (Auto) 1.9, Monocytes # (Auto) 0.5, Eosinophils # (Auto) 0.2, Basophils # (Auto) 0.1, Immature Granulocyte # (Auto) 0.2H, Prothrombin Time 16.1H, INR Comment 1.3, Activated Partial Thromboplast Time 39H, D-Dimer < 0.27, Sodium Level 140, Potassium Level 4.3, Chloride Level 100, Carbon Dioxide Level 25, Anion Gap 15H, Blood Urea Nitrogen 25H, Creatinine 1.48H, Estimat Glomerular Filtration Rate 38, BUN/Creatinine Ratio 17, Glucose Level 108H, Calcium Level 9.0, Corrected Calcium 9.0, Magnesium Level 2.1, Total Bilirubin 0.3, Aspartate Amino Transf (AST/SGOT) 19, Alanine Aminotransferase (ALT/SGPT) 26, Alkaline Phosphatase 88, Myoglobin 78.7, Troponin I < 0.028, B-Type Natriuretic Peptide 48.9, Total Protein 6.8, Albumin 4.0, Lipase 29 09/13/21 15:41: Blood Gas Puncture Site R RADIAL, Blood Gas Patient Temperature 35.8, Arterial Blood pH 7.40, Arterial Blood Partial Pressure CO2 48H, Arterial Blood Partial Pressure O2 102H, Arterial Blood HCO3 29H, Arterial Blood Total CO2 31.0, Arterial Blood Oxygen Saturation 99, Arterial Blood Base Excess 4.6H, Gómez Test YES-POS, Blood Gas Ventilator Setting NO, Blood Gas Inspired Oxygen 2L 09/13/21 18:53: Glucometer 88 09/13/21 21:01: Troponin I < 0.028 09/13/21 21:29: Glucometer 103 09/14/21 05:19: Glucometer 118H 09/14/21 06:01: White Blood Count 7.6, Red Blood Count 3.58L, Hemoglobin 11.0L, Hematocrit 36, Mean Corpuscular Volume 99, Mean Corpuscular Hemoglobin 31, Mean Corpuscular Hemoglobin Concent 31L, Red Cell Distribution Width 13.9, Platelet Count 221, Mean Platelet Volume 10.1, Immature Granulocyte % (Auto) 1, Neutrophils (%) (Auto) 66, Lymphocytes (%) (Auto) 24, Monocytes (%) (Auto) 6, Eosinophils (%) (Auto) 3, Basophils (%) (Auto) 0, Neutrophils # (Auto) 5.0, Lymphocytes # (Auto) 1.8, Monocytes # (Auto) 0.5, Eosinophils # (Auto) 0.2, Basophils # (Auto) 0.0, Immature Granulocyte # (Auto) 0.1, Sodium Level 143, Potassium Level 4.2, Chloride Level 104, Carbon Dioxide Level 27, Anion Gap 12, Blood Urea Nitrogen 24H, Creatinine 1.17, Estimat Glomerular Filtration Rate 50, BUN/Creatinine Ratio 21, Glucose Level 106H, Calcium Level 8.8, Troponin I < 0.028, Triglycerides Level 108, Cholesterol Level 149, LDL Cholesterol Direct 74, VLDL Cholesterol 22, HDL Cholesterol 51 Conclusion/Plan CHEST PAIN - NON CARDIAC - EVAL BY CARDIOLOGY - CONTINUE WITH CURRENT MANAGEMENT, BP CONTROL, MEDICAL MANAGEMENT OF CHRONIC CORONARY ARTERY DISEASE EDEMA - EXTRA DOSE OF LASIX TODAY HYPERTENSION - WILL RESUME HOME REGIMEN DIABETES MELLITUS - RESUME HOME REGIMEN CHRONIC RENAL INSUFFICIENCY - IMPROVED AT THIS TIME, WILL REQUIRE CLOSE MONITORING ON LASIX. ANXIETY AND DEPRESSION - RESUME HOME REGIMEN ON DC. PERIPHERAL NEUROPATHY - RESUME GABAPENTIN ESOPHAGEAL REFLUX - MAY BE EXACERBATED BY STRESS FROM HER ASS[facility]ED [facility]IV[facility] AND IRON TABLETS- ADVISED CONTINUED USE OF PROTONIX, MAY NEED TO INCREASE UP TO BID USE WHEN UNDER PERIODS OF STRESS OR ADD PEPCID FOR PRN USE. IRON DEFICIENCY ANEMIA - CONTINUE WITH ORAL IRON - HER HGB IS RELATIVELY STABLE. COPD ON CHRONIC OXYGEN THERAPY - CONTINUE WITH HOME REGIMEN. - PT'S OXYGEN REQUIREMENT IS STABLE. CHRONIC SINUSITIS AND CHRONIC ALLERGIC RHINITIS - DEFER TO DR. CHAMBERS. DC BACK TO [facility] TODAY DAISY MOTTA MD Sep 14, 2021 10:28
--- NOTE | 2021-09-14 10:46 | Discharge Inst-Simple/Standard ---
Discharge Inst-Standard Patient Instructions/Follow Up Plan of Care/Instructions/FU: FOLLOW UP WITH CARDIOLOGY IN 2 WEEKS, [facility] IN 1 WEEK Activity as Tolerated: Yes Discharge Diet: ADA Diet, Low Fat/Low Cholesterol Health Concerns: CHEST PAIN EDEMA HYPERTENSION DIABETES MELLITUS CHRONIC RENAL INSUFFICIENCY ANXIETY DEPRESSION PERIPHERAL NEUROPATHY ESOPHAGEAL REFLUX IRON DEFICIENCY ANEMIA COPD CHRONIC SINUSITIS CHRONIC ALLERGIC RHINITIS OXYGEN DEPENDENCE Return to The Hospital For: ANY CONCERN FOR UNCONTROLLED SHORTNESS OF BREATH, CHEST PAIN, OR OTHER LIFETHREATENING ILLNESS OR INJURY Medication List: NO CHANGE IN HOME MEDICATION REGIMEN FROM [facility]ED [facility]IV[facility] FACILITY RESUME HOME MEDICATIONS PREVIOUSLY ORDERED Lab results: Laboratory Tests Test 09/13/21 14:45 09/13/21 15:41 09/13/21 18:53 09/13/21 21:01 Range/Units White Blood Count 9.6 4.3-11.0 10^3/uL Red Blood Count 3.70 L 3.80-5.11 10^6/uL Hemoglobin 11.5 11.5-16.0 g/dL Hematocrit 36 35-52 % Mean Corpuscular Volume 98 80-99 fL Mean Corpuscular Hemoglobin 31 25-34 pg Mean Corpuscular Hemoglobin Concent 32 32-36 g/dL Red Cell Distribution Width 13.9 10.0-14.5 % Platelet Count 255 130-400 10^3/uL Mean Platelet Volume 10.3 9.0-12.2 fL Immature Granulocyte % (Auto) 2 % Neutrophils (%) (Auto) 70 42-75 % Lymphocytes (%) (Auto) 20 12-44 % Monocytes (%) (Auto) 6 0-12 % Eosinophils (%) (Auto) 3 0-10 % Basophils (%) (Auto) 1 0-10 % Neutrophils # (Auto) 6.7 1.8-7.8 10^3/uL Lymphocytes # (Auto) 1.9 1.0-4.0 10^3/uL Monocytes # (Auto) 0.5 0.0-1.0 10^3/uL Eosinophils # (Auto) 0.2 0.0-0.3 10^3/uL Basophils # (Auto) 0.1 0.0-0.1 10^3/uL Immature Granulocyte # (Auto) 0.2 H 0.0-0.1 10^3/uL Prothrombin Time 16.1 H 12.2-14.7 SEC INR Comment 1.3 0.8-1.4 Activated Partial Thromboplast Time 39 H 24-35 SEC D-Dimer < 0.27 0.00-0.49 UG/ML Sodium Level 140 135-145 MMOL/L Potassium Level 4.3 3.6-5.0 MMOL/L Chloride Level 100 98-107 MMOL/L Carbon Dioxide Level 25 21-32 MMOL/L Anion Gap 15 H 5-14 MMOL/L Blood Urea Nitrogen 25 H 7-18 MG/DL Creatinine 1.48 H 0.60-1.30 MG/DL Estimat Glomerular Filtration Rate 38 BUN/Creatinine Ratio 17 Glucose Level 108 H 70-105 MG/DL Calcium Level 9.0 8.5-10.1 MG/DL Corrected Calcium 9.0 8.5-10.1 MG/DL Magnesium Level 2.1 1.6-2.4 MG/DL Total Bilirubin 0.3 0.1-1.0 MG/DL Aspartate Amino Transf (AST/SGOT) 19 5-34 U/L Alanine Aminotransferase (ALT/SGPT) 26 0-55 U/L Alkaline Phosphatase 88 40-136 U/L Myoglobin 78.7 10.0-92.0 NG/ML Troponin I < 0.028 < 0.028 <0.028 NG/ML B-Type Natriuretic Peptide 48.9 <100.0 PG/ML Total Protein 6.8 6.4-8.2 GM/DL Albumin 4.0 3.2-4.5 GM/DL Lipase 29 8-78 U/L Blood Gas Puncture Site R RADIAL Blood Gas Patient Temperature 35.8 Arterial Blood pH 7.40 7.37-7.43 Arterial Blood Partial Pressure CO2 48 H 35-45 MMHG Arterial Blood Partial Pressure O2 102 H 79-93 MMHG Arterial Blood HCO3 29 H 23-27 MMOL/L Arterial Blood Total CO2 31.0 21.0-31.0 MMOL/L Arterial Blood Oxygen Saturation 99 94-100 % Arterial Blood Base Excess 4.6 H -2.5-2.5 MMOL/L Gómez Test YES-POS Blood Gas Ventilator Setting NO Blood Gas Inspired Oxygen 2L Glucometer 88 70-110 MG/DL Test 09/13/21 21:29 09/14/21 05:19 09/14/21 06:01 09/14/21 10:29 Range/Units Glucometer 103 118 H 181 H 70-110 MG/DL White Blood Count 7.6 4.3-11.0 10^3/uL Red Blood Count 3.58 L 3.80-5.11 10^6/uL Hemoglobin 11.0 L 11.5-16.0 g/dL Hematocrit 36 35-52 % Mean Corpuscular Volume 99 80-99 fL Mean Corpuscular Hemoglobin 31 25-34 pg Mean Corpuscular Hemoglobin Concent 31 L 32-36 g/dL Red Cell Distribution Width 13.9 10.0-14.5 % Platelet Count 221 130-400 10^3/uL Mean Platelet Volume 10.1 9.0-12.2 fL Immature Granulocyte % (Auto) 1 % Neutrophils (%) (Auto) 66 42-75 % Lymphocytes (%) (Auto) 24 12-44 % Monocytes (%) (Auto) 6 0-12 % Eosinophils (%) (Auto) 3 0-10 % Basophils (%) (Auto) 0 0-10 % Neutrophils # (Auto) 5.0 1.8-7.8 10^3/uL Lymphocytes # (Auto) 1.8 1.0-4.0 10^3/uL Monocytes # (Auto) 0.5 0.0-1.0 10^3/uL Eosinophils # (Auto) 0.2 0.0-0.3 10^3/uL Basophils # (Auto) 0.0 0.0-0.1 10^3/uL Immature Granulocyte # (Auto) 0.1 0.0-0.1 10^3/uL Sodium Level 143 135-145 MMOL/L Potassium Level 4.2 3.6-5.0 MMOL/L Chloride Level 104 98-107 MMOL/L Carbon Dioxide Level 27 21-32 MMOL/L Anion Gap 12 5-14 MMOL/L Blood Urea Nitrogen 24 H 7-18 MG/DL Creatinine 1.17 0.60-1.30 MG/DL Estimat Glomerular Filtration Rate 50 BUN/Creatinine Ratio 21 Glucose Level 106 H 70-105 MG/DL Calcium Level 8.8 8.5-10.1 MG/DL Troponin I < 0.028 <0.028 NG/ML Triglycerides Level 108 <150 MG/DL Cholesterol Level 149 < 200 MG/DL LDL Cholesterol Direct 74 1-129 MG/DL VLDL Cholesterol 22 5-40 MG/DL HDL Cholesterol 51 40-60 MG/DL DAISY JOHNSON MD Sep 14, 2021 10:46
[2021-09-14] MEDS ORDERED: CAPS1ADH11 TP (10:54)
[2021-09-14] MEDS ORDERED: GUAI-981 PO (10:54)
[2021-09-14] MEDS ORDERED: METH1ADH15 TP (10:54)
[2021-09-14] MEDS ORDERED: BISA10SU58 RC (10:54)
[2021-09-14] MEDS ORDERED: ALEN70TA80 PO (10:54)
[2021-09-14] MEDS ORDERED: ROSU5TAB13 PO (10:54)
[2021-09-14] MEDS ORDERED: NYST1000 PO (10:54)
[2021-09-14] MEDS ORDERED: OXYC-556 PO (10:54)
[2021-09-14] MEDS ORDERED: BUDE10.2 INH (10:54)
[2021-09-14] MEDS ORDERED: CYCL10TA25 PO (10:54)
[2021-09-14] MEDS ORDERED: TOLN108P2 TP (10:54)
[2021-09-14] MEDS ORDERED: INSU100I48 SQ (10:54)
[2021-09-14] MEDS ORDERED: HYDR25SU5 RC (10:54)
[2021-09-14] MEDS ORDERED: SUCR1TAB PO (10:54)
[2021-09-14] MEDS ORDERED: BENZ100C18 PO (10:54)
[2021-09-14] MEDS ORDERED: [UNRECOGNIZED DRUG - CODE] PO (10:54)
[2021-09-14] MEDS ORDERED: HYDR28.487 RC (10:54)
[2021-09-14] MEDS ORDERED: DICL100G13 TOP (10:54)
[2021-09-14] MEDS ORDERED: ALBU5SOL6 IH (11:00)
[2021-09-14] MEDS ORDERED: [UNRECOGNIZED DRUG - REMARK] NSEACH (11:00)
[2021-09-14] MEDS ORDERED: DICL20GE TP (11:02)
[2021-09-14] MEDS ORDERED: DICL100G13 TP (11:02)
[2021-09-14] MEDS ORDERED: LIDO85CR TP (11:13)
[2021-09-14 11:29] VITALS: BP 170/81
--- NOTE | 2021-09-14 12:32 | Consultation-Cardiology ---
HPI-Cardiology Cardiology Consultation Date of Consultation 09/14/21 Date of Admission Time Seen by Provider: 08:00 Indication: chest pain HPI Patient is a 71 y/o female with history of nonobstructive CAD per [facility] done September 2020, PAF, HTN. Presented to the ER with complaints of right sided chest and shoulder pain and increased peripheral edema over the last week. Denies any dyspnea, dizziness or lightheadedness. Home Medications & Allergies Allergies: Coded Allergies: Penicillins (Verified Allergy, Severe, SWELLING, HIVES, THROAT SWELLED, 01/21/16) PATIENT HAS RECEIVED CEFEPIME WITHOUT ISSUE Sulfa (Sulfonamide Antibiotics) (Verified Allergy, Severe, TONGUE SWELLED, 01/21/16) Tetanus & Diphtheria Tox,Adult (Verified Allergy, Severe, SWELLING OF THROAT, 01/21/16) codeine (Verified Allergy, Unknown, HAS RECEIVED LORTAB IN THE PAST, 01/21/16) egg (Unverified Allergy, Unknown, 06/29/16) FROM UNCODED ALLERGIES [id number]-Dcxzrp Hx Patient Social History Marital Status: Number of Children: 2 Number of living children: 2 Living Status: LIV[facility] AT [facility] 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[employer]) Drug of Choice: Denies Smoking Status: Never a Smoker 2nd Hand Smoke Exposure: Yes (DAD WAS HEAVY SMOKER) Recent Hopitalizations: No Have you traveled recently?: No Alcohol Use?: No Immunizations Up To Date Tetanus Booster (TDap): Unknown Date of Pneumonia Vaccine: Mar 31, 2017 Date of Influenza Vaccine: Mar 03, 2021 Past Medical History CAD, PAF, HTN, HLP Family Medical History Significant Family History: Heart Disease, CAD Over 55 Years Old, CVA, Diabetes, GI Disease, Hypertension, Stroke, Vascular Disease Family History: Cardiovascular disease 19 FATHER 19 MOTHER Colon cancer Diabetes mellitus 19 MOTHER Irritable bowel syndrome G8 BROTHER Myocardial infarction 19 FATHER 19 MOTHER TIAs 19 MOTHER Review of Systems-General Review of Systems Constitutional: No chills, No fever, No malaise; weakness (CHRONIC) EENTM: nose congestion; No throat pain Respiratory: No cough; dyspnea on exertion, short of breath (CHRONIC) Cardiovascular: chest pain (NOW RESOLVED), edema, Hx of Intervention; No palpitations; vascular heart diseas Gastrointestinal: No abdominal pain, No constipation, No diarrhea, No nausea, No vomiting Genitourinary: no symptoms reported Musculoskeletal: No back pain, No muscle pain, No muscle stiffness; muscle weakness Skin: No dryness, No rash Psychiatric/Neurological: Anxiety, Depressed, Weakness All Other Systems Reviewed Negative Unless Noted: Yes Reviewed Test Results Reviewed Test Results Lab Laboratory Tests 09/13/21 14:45: White Blood Count 9.6, Red Blood Count 3.70L, Hemoglobin 11.5, Hematocrit 36, Mean Corpuscular Volume 98, Mean Corpuscular Hemoglobin 31, Mean Corpuscular Hemoglobin Concent 32, Red Cell Distribution Width 13.9, Platelet Count 255, Mean Platelet Volume 10.3, Immature Granulocyte % (Auto) 2, Neutrophils (%) (Auto) 70, Lymphocytes (%) (Auto) 20, Monocytes (%) (Auto) 6, Eosinophils (%) (Auto) 3, Basophils (%) (Auto) 1, Neutrophils # (Auto) 6.7, Lymphocytes # (Auto) 1.9, Monocytes # (Auto) 0.5, Eosinophils # (Auto) 0.2, Basophils # (Auto) 0.1, Immature Granulocyte # (Auto) 0.2H, Prothrombin Time 16.1H, INR Comment 1.3, Activated Partial Thromboplast Time 39H, D-Dimer < 0.27, Sodium Level 140, Potassium Level 4.3, Chloride Level 100, Carbon Dioxide Level 25, Anion Gap 15H, Blood Urea Nitrogen 25H, Creatinine 1.48H, Estimat Glomerular Filtration Rate 38, BUN/Creatinine Ratio 17, Glucose Level 108H, Calcium Level 9.0, Corrected Calcium 9.0, Magnesium Level 2.1, Total Bilirubin 0.3, Aspartate Amino Transf (AST/SGOT) 19, Alanine Aminotransferase (ALT/SGPT) 26, Alkaline Phosphatase 88, Myoglobin 78.7, Troponin I < 0.028, B-Type Natriuretic Peptide 48.9, Total Protein 6.8, Albumin 4.0, Lipase 29 09/13/21 15:41: Blood Gas Puncture Site R RADIAL, Blood Gas Patient Temperature 35.8, Arterial Blood pH 7.40, Arterial Blood Partial Pressure CO2 48H, Arterial Blood Partial Pressure O2 102H, Arterial Blood HCO3 29H, Arterial Blood Total CO2 31.0, Arterial Blood Oxygen Saturation 99, Arterial Blood Base Excess 4.6H, Gómez Test YES-POS, Blood Gas Ventilator Setting NO, Blood Gas Inspired Oxygen 2L 09/13/21 18:53: Glucometer 88 09/13/21 21:01: Troponin I < 0.028 09/13/21 21:29: Glucometer 103 09/14/21 05:19: Glucometer 118H 09/14/21 06:01: White Blood Count 7.6, Red Blood Count 3.58L, Hemoglobin 11.0L, Hematocrit 36, Mean Corpuscular Volume 99, Mean Corpuscular Hemoglobin 31, Mean Corpuscular Hemoglobin Concent 31L, Red Cell Distribution Width 13.9, Platelet Count 221, Mean Platelet Volume 10.1, Immature Granulocyte % (Auto) 1, Neutrophils (%) (Auto) 66, Lymphocytes (%) (Auto) 24, Monocytes (%) (Auto) 6, Eosinophils (%) (Auto) 3, Basophils (%) (Auto) 0, Neutrophils # (Auto) 5.0, Lymphocytes # (Auto) 1.8, Monocytes # (Auto) 0.5, Eosinophils # (Auto) 0.2, Basophils # (Auto) 0.0, Immature Granulocyte # (Auto) 0.1, Sodium Level 143, Potassium Level 4.2, Chloride Level 104, Carbon Dioxide Level 27, Anion Gap 12, Blood Urea Nitrogen 24H, Creatinine 1.17, Estimat Glomerular Filtration Rate 50, BUN/Creatinine Ratio 21, Glucose Level 106H, Calcium Level 8.8, Troponin I < 0.028, Triglycerides Level 108, Cholesterol Level 149, LDL Cholesterol Direct 74, VLDL Cholesterol 22, HDL Cholesterol 51 09/14/21 10:29: Glucometer 181H Physical Exam Physical Exam Vital Signs Vital Signs - First Documented 09/13/21 09/13/21 09/13/21 14:37 14:40 20:03 Temp 35.8 Pulse 73 Resp 22 B/P (MAP) 113/78 (90) Pulse Ox 96 O2 Delivery Nasal Cannula O2 Flow Rate 2.00 FiO2 28 Capillary Refill : Less Than 3 Seconds Height, Weight, BMI Height: 5'5.00" Weight: 225lbs. 0.0oz. 102.663993aw; 42.31 BMI Method:Estimated General Appearance: No Apparent Distress, WD/WN HEENT: PERRL/EOMI, Pharynx Normal Neck: Full Range of Motion, Non Tender, Supple Respiratory: Chest Non Tender, Lungs Clear, Normal Breath Sounds, No Accessory Muscle Use, No Respiratory Distress Cardiovascular: Systolic Murmur, Irregularly Irregular Gastrointestinal: Normal Bowel Sounds, No Organomegaly, No Pulsatile Mass, Non Tender, Soft Rectal: Deferred Extremity: Normal Capillary Refill, Non Tender, No Calf Tenderness, Pedal Edema Neurologic/Psychiatric: Alert, Oriented x3, No Motor/Sensory Deficits, Normal 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 Chest pain improved. Coronary artery disease, Cardiac catheterization was repeated on September 30, 2020 after having an abnormal stress test showing mild coronary artery disease nonobstructive disease. Continue to monitor Shortness of breath on exertion, chronic, oxygen dependent. Palpitation, loop monitor was implanted on March 27, 2019, no significant arrhythmia was detected so far. Symtomatic bradycardia, secondary to medication, paroxysmal atrial fibrillation, back to sinus rhythm. Amiodarone restarted, tolerating medications well. Peripheral edema,diurese and continue to monitor. Paroxysmal atrial fibrillation/paroxysmal atrial tachycardia-followed by Dr. rL. Patient underwent ablation April 2016. maintained on Amiodarone, Toprol, Eliquis. converted back to sinus rhythm. Will continue to keep off of diltiazem and flecainide. Maintained on Amiodarone 100mg daily. Sick sinus syndrome with 4 seconds pause noted on her Reveal device in the past, was asymptomatic, continue to monitor. Echocardiogram done on August 28, 2020 showing normal LV size, EF 55 to 65%, grade 1 diastolic dysfunction, PA pressure 40 to 45 mmHg. [id number] score of 4, yearly risk of stroke without OAC is 4%. Patient is maintained on Eliquis. History of near syncope, patient reports improvement, continue to monitor. 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 followed with Dr. Phelps previously, management per Dr. Motta. Mild bilateral carotid stenosis, nonobstructive disease per carotid duplex done May 2021 Asthma, followed by Dr. Phelps Venous insufficiency scan done March 2016 was negative for reflux. Hypertension, controlled, continue to monitor Hyperlipidemia, continue to monitor. Hypothyroidism, followed and managed by primary care physician Maturity-onset diabetes mellitus, followed and managed by primary care physician. Gastric esophageal reflux disease Thank you for allowing us to participate in the management of Ms. Boyce. This is Pippa Velazquez PA-C, as a scribe for Dr. Dyer. Patient was seen and evaluated with Pippa, reporting improvement in the chest pain, still having mild pedal edema but overall feeling better Patient is back to her baseline. Discussed the management plan, okay for discharge and follow-up as an outpatient PIPPA CHEATHAM Sep 14, 2021 12:32 WINNIE DYER MD Sep 14, 2021 16:10
== END 2021-09-14 14:06 ==
LOC: EDUNIT# 14:28 → ER 14:30 → UNDOADMOB 17:50 → 4TH 17:50 → UNDODISOB 09-14 14:09
PROVIDERS: ADMIT Family Medicine; ATTEND Family Medicine
DX: R07.89 Other chest pain (principal); R60.9 Edema, unspecified; I13.0 Hypertensive heart and chronic kidney disease with heart failure and stage 1 through stage 4 chronic kidney disease, or unspecified chronic kidney disease; E11.22 Type 2 diabetes mellitus with diabetic chronic kidney disease; N18.9 Chronic kidney disease, unspecified; I50.9 Heart failure, unspecified; F41.9 Anxiety disorder, unspecified; F32.A Depression, unspecified; E11.42 Type 2 diabetes mellitus with diabetic polyneuropathy; K21.9 Gastro-esophageal reflux disease without esophagitis; D50.9 Iron deficiency anemia, unspecified; J44.9 Chronic obstructive pulmonary disease, unspecified; J32.9 Chronic sinusitis, unspecified; J30.9 Allergic rhinitis, unspecified; Z79.4 Long term (current) use of insulin; Z99.81 Dependence on supplemental oxygen; Z88.5 Allergy status to narcotic agent; Z88.0 Allergy status to penicillin; Z88.2 Allergy status to sulfonamides; Z88.7 Allergy status to serum and vaccine; Z91.012 Allergy to eggs; Z83.3 Family history of diabetes mellitus; Z82.49 Family history of ischemic heart disease and other diseases of the circulatory system
CPT/HCPCS: 71045 ×2; 80048; 80053; 80061; 82805; 82947 ×2; 83690; 83735; 83874; 83880; 84484 ×2; 85025 ×2; 85379; 85610; 85730; 93005; 93306; 94640; 94760; 96372; 96374; 99285; G0378; G0379; 36415

== ENCOUNTER 2021-10-04 12:34 | Outpatient (CLI) | payer MEDICARE | END 2021-10-04 13:02 | disposition home or self-care (01) | LOC: SLEEP 12:34 | PROVIDERS: ATTEND Otolaryngology Otolaryngology/Facial Plastic Surgery | DX: G47.33 Obstructive sleep apnea (adult) (pediatric) (principal) | CPT/HCPCS: G0399 ==

== ENCOUNTER → 2021-10-04 | Outpatient (CLI) | payer MEDICARE ==
[~2021-10-04] MED LIST changes: +ALBU5SOL6 IH; +ALEN70TA80 PO; +BENZ100C18 PO; +BISA10SU58 RC; +BUDE10.2 INH; +CAPS1ADH11 TP; +DICL100G13 TOP; +DICL100G13 TP; +DICL20GE TP; +GUAI-981 PO; +HYDR25SU5 RC; +HYDR28.487 RC; +INSU100I48 SQ; +LIDO85CR TP; +METH1ADH15 TP; +NYST1000 PO; +ROSU5TAB13 PO; +TOLN108P2 TP; +[UNRECOGNIZED DRUG - CODE] PO; +[UNRECOGNIZED DRUG - REMARK] NSEACH
--- NOTE | 2021-10-04 17:10 | Diagnostic Imaging Report ---
PROCEDURE: CT sinuses without contrast TECHNIQUE: Multiple contiguous axial images were obtained through the sinuses without the use of intravenous contrast. Coronal and sagittal reformations were then performed. Auto Exposure Controls were utilized during the CT exam to meet ALARA standards for radiation dose reduction. INDICATION: Chronic sinus pain. COMPARISON: 07/29/2021. FINDINGS: The paranasal sinuses are well aerated. There are no air-fluid levels. No mucosal thickening. The ostiomeatal complexes appear normal. There is rather marked daron bullosa of the left middle nasal turbinate. There is considerable deviation of the nasal septum to the right. No destructive bony changes. IMPRESSION: 1. No acute inflammatory changes. 2. Rather marked daron bullosa of the left middle nasal turbinate and rather marked deviation of the nasal septum to the right. Dictated by: Dictated on workstation # [id number]
== END ==
LOC: RAD 14:15
PROVIDERS: ATTEND Otolaryngology Otolaryngology/Facial Plastic Surgery
DX: J32.9 Chronic sinusitis, unspecified (principal); J34.2 Deviated nasal septum; J33.8 Other polyp of sinus
CPT/HCPCS: 70486

== ENCOUNTER 2021-11-11 19:27 | Outpatient (CLI) | payer MEDICARE | END 2021-11-12 06:05 | disposition home or self-care (01) | LOC: SLEEP 19:27 | PROVIDERS: ATTEND Otolaryngology Otolaryngology/Facial Plastic Surgery | DX: G47.33 Obstructive sleep apnea (adult) (pediatric) (principal) | CPT/HCPCS: 95811 ==

== ENCOUNTER → 2021-11-18 | Outpatient (RCR) | payer MEDICARE | END | disposition home or self-care (01) | PROVIDERS: ATTEND Family Medicine Sports Medicine | DX: M17.11 Unilateral primary osteoarthritis, right knee (principal) ==

== ENCOUNTER 2021-12-07 08:46 | Outpatient (RCR) | payer MEDICARE | END 2021-12-19 | disposition home or self-care (01) | PROVIDERS: ATTEND Family Medicine Sports Medicine | DX: G56.02 Carpal tunnel syndrome, left upper limb (principal); M13.842 Other specified arthritis, left hand; I10 Essential (primary) hypertension; J45.909 Unspecified asthma, uncomplicated ==

== ENCOUNTER 2022-01-09 17:41 | Emergency (ER) | payer MEDICARE ==
--- NOTE | 2022-01-09 18:48 | ED Fall/Injury ---
General Chief Complaint: Trauma-Non Activation Stated Complaint: FALL Nursing Triage Note: PT TO FT 3 BY [facility] WITH C/O FALL WITH BACK AND NECK PAIN. PT STATES SHE WENT TO SIT ON A BENCH AND THE BENCH SLIPPED AND SHE FEEL ON BUTTOCKS Source: patient Exam Limitations: no limitations History of Present Illness Date Seen by Provider: Jan 09, 2022 Time Seen by Provider: 18:46 Initial Comments This is a pleasant 71-year-old female that presents to the emergency room for evaluation of a head injury. She states that she was attempting to sit on a bench and that it slipped backward and she fell back, striking her buttock and head/neck on the bench. She did not lose consciousness. She is on Eliquis and so they sent her here for further evaluation. The patient states that her pain is very minimal at this time. Occurred: just prior to arrival Severity: mild Injuries/Pain Location: head, neck, back Context: lost balance, slipped Loss of Consciousness: no loss of consciousness Allergies and Home Medications Allergies Coded Allergies: Penicillins (Verified Allergy, Severe, SWELLING, HIVES, THROAT SWELLED, 01/21/16) PATIENT HAS RECEIVED CEFEPIME WITHOUT ISSUE Sulfa (Sulfonamide Antibiotics) (Verified Allergy, Severe, TONGUE SWELLED, 01/21/16) Tetanus & Diphtheria Tox,Adult (Verified Allergy, Severe, SWELLING OF THROAT, 01/21/16) codeine (Verified Allergy, Unknown, HAS RECEIVED LORTAB IN THE PAST, 01/21/16) egg (Unverified Allergy, Unknown, 06/29/16) FROM UNCODED ALLERGIES Patient Home Medication List Home Medication List Reviewed: Yes Acetaminophen (Tylenol) 325 Mg Capsule, 325-650 MG PO Q6H PRN for PAIN-MILD (1- 4) OR TEMPATURE, (Reported) Entered as Reported by: GISELA COLLAZO on 04/01/20 1343 Albuterol Sulfate (Albuterol Sulfate) 5 Mg/Ml Solution, 5 MG IH Q4H PRN for SHORTNESS OF BREATH, (Reported) Entered as Reported by: GISELA COLLAZO on 09/14/21 1100 Alendronate Sodium (Alendronate Sodium) 70 Mg Tablet, 70 MG PO WED, (Reported) Entered as Reported by: GISELA COLLAZO on 09/14/21 1054 Allopurinol (Allopurinol) 100 Mg Tablet, 100 MG PO DAILY, (Reported) Entered as Reported by: GISELA COLLAZO on 04/01/20 1343 Tnyrt-C-Vzwlxeglrxvyx (Beano) 400 Unit Tablet, 400 UNIT PO AC, (Reported) Entered as Reported by: GISELA COLLAZO on 09/14/21 1054 Alprazolam (Alprazolam) 0.5 Mg Tablet, 0.5 MG PO BID PRN for ANXIETY, (Reported) Entered as Reported by: TEDDY BAXTER on 01/14/16 1025 Amiodarone HCl (Amiodarone HCl) 200 Mg Tablet, 100 MG PO DAILY, (Reported) Entered as Reported by: ISRAEL TERRY on 09/30/20 1159 Apixaban (Eliquis) 5 Mg Tablet, 5 MG PO BID, (Reported) Entered as Reported by: TEDDY BAXTER on 08/14/15 1519 Azelastine HCl (Azelastine HCl) 137 Mcg/0.137 Ml [place].pump, 1 SPRAY NSEACH TID, (Reported) Entered as Reported by: GISELA COLLAZO on 04/01/20 1343 Benzonatate (Tessalon Perles) 100 Mg Capsule, 200 MG PO TID PRN for COUGH, (Reported) Entered as Reported by: GISELA COLLAZO on 09/14/21 1054 Bisacodyl (Dulcolax) 10 Mg Supp.rect, 10 MG RC DAILY PRN for CONSTIPATION-4TH LINE, (Reported) Entered as Reported by: GISELA COLLAZO on 09/14/21 1054 Brexpiprazole (Rexulti) 0.5 Mg Tablet, 0.5 MG PO 2000, (Reported) Entered as Reported by: JACKELYN SOTELO on 03/19/21 1534 Budesonide/Formoterol Fumarate (Symbicort 160-4.5 Mcg Inhaler) 160 Mcg-4.5 Mcg/Actuation Hfa.aer.ad, 2 PUFF INH BID, (Reported) Entered as Reported by: GISELA COLLAZO on 09/14/21 1054 Bupropion HCl (Bupropion Xl) 300 Mg Tab.er.24h, 300 MG PO DAILY, (Reported) Entered as Reported by: GISELA COLLAZO on 04/01/20 1343 Calcium Carbonate (Calcium) 500 Mg Tablet, 1,000 MG PO DAILY, (Reported) Entered as Reported by: GISELA COLLAZO on 04/01/20 1343 Carboxymethylcellulose Sodium (Refresh Liquigel) 15 Ml Drp.lq.gel, 1 DROP OU DAILY PRN for DRY EYES, (Reported) Entered as Reported by: ISRAEL TERRY on 09/30/20 1159 Cholecalciferol (Vitamin D3) (Vitamin D3) 125 Mcg Tablet, 125 MCG PO DAILY, (Reported) Entered as Reported by: GISELA COLLAZO on 04/01/20 1343 Colestipol HCl (Colestipol HCl) 1 Gm Tablet, 1 GM PO BID, (Reported) Entered as Reported by: TEDDY BAXTER on 12/26/14 0914 Cyanocobalamin (Cyanocobalamin Injection) 1,000 Mcg/Ml Inj, 1,000 MCG IM MONTHLY, (Reported) Entered as Reported by: ISRAEL TERRY on 09/30/20 1212 Cyclobenzaprine HCl (Cyclobenzaprine HCl) 10 Mg Tablet, 10 MG PO Q4H PRN for MUSCLE SPASMS, (Reported) Entered as Reported by: GISELA COLLAZO on 09/14/21 1054 Diclofenac Sodium (Diclofenac Sodium) 1 % Gel..gram., 1 APPLIC TOP TID, (Reported) Entered as Reported by: GISELA COLLAZO on 09/14/21 1054 Diclofenac Sodium (Diclofenac Sodium) 1 % Gel..gram., 1 APPLIC TP BID, (Reported) Entered as Reported by: GISELA COLLAZO on 09/14/21 1102 Docusate Sodium (Colace) 100 Mg Capsule, 100 MG PO DAILY, (Reported) Entered as Reported by: GISELA COLLAZO on 04/01/20 1343 Famotidine (Famotidine) 40 Mg Tablet, 40 MG PO 1999, (Reported) Entered as Reported by: GISELA COLLAZO on 04/01/20 1343 Ferrous Sulfate (Ferrous Sulfate) 325 Mg Tablet, 325 MG PO DAILY, (Reported) Entered as Reported by: TEDDY BAXTER on 07/30/18 0959 Fluticasone Propionate (Fluticasone Propionate) 16 Gm [place].susp, 1 SPRAY NSEACH BID, (Reported) Entered as Reported by: GISELA COLLAZO on 04/01/20 1343 Furosemide (Furosemide) 40 Mg Tablet, 40 MG PO DAILY, (Reported) Entered as Reported by: ISRAEL TERRY on 09/30/20 1159 Gabapentin (Neurontin) 300 Mg Capsule, 900 MG PO TID, (Reported) Entered as Reported by: GISELA COLLAZO on 04/01/20 134 Guaifenesin (Mucinex) 600 Mg Tab.er.12h, 600 MG PO BID PRN for SINUS DRAINAGE, (Reported) Entered as Reported by: ISRAEL TERRY on 09/30/20 1159 Guaifenesin (Robafen) 100 Mg/5 Ml Liquid, 10 ML PO Q4H PRN for COUGH, (Reported) Entered as Reported by: GISELA COLLAZO on 09/14/21 1054 Hydrocortisone (Hydrocortisone) 1 % Cream..g., 1 APPLIC RC Q48H PRN for HEMMORRHOID DISCOMFORT, (Reported) Entered as Reported by: GISELA COLLAZO on 09/14/21 105 Hydrocortisone Acetate (Hydrocortisone Acetate) 25 Mg Supp.rect, 25 MG RC DAILY PRN for HEMMORRHOID DISCOMFORT, (Reported) Entered as Reported by: GISELA COLLAZO on 09/14/21 1054 Insulin Glargine,Hum.rec.anlog (Toujeo Solostar) 300 Unit/1 Ml Insuln.pen, 30 UNIT SQ HS, (Reported) Entered as Reported by: TEDDY BAXTER on 07/30/18 0959 Insulin Lispro (Insulin Lispro Kwikpen U-100) 100 Unit/1 Ml Insuln.pen, 8 UNITS SC TIDWM, (Reported) Entered as Reported by: GISELA COLLAZO on 04/01/20 1343 Insulin Lispro (Insulin Lispro Kwikpen U-100) 100 Unit/Ml Insuln.pen, UNIT SQ TIDWM, (Reported) Entered as Reported by: GISELA COLLAZO on 09/14/21 1054 Levalbuterol HCl (Xopenex) 1.25 Mg/3 Ml Vial.neb, 1.25 MG NEB Q6H PRN for SHORTNESS OF BREATH, (Reported) Entered as Reported by: TEDDY BAXTER on 07/30/18 0959 Levocetirizine Dihydrochloride (Xyzal) 5 Mg Tablet, 5 MG PO DAILY, (Reported) Entered as Reported by: ISRAEL TERRY on 09/30/20 1159 Levothyroxine Sodium (Synthroid) 25 Mcg Tablet, 50 MCG PO DAILY, (Reported) Entered as Reported by: ISRAEL TERRY on 09/30/20 1159 Lidocaine HCl/Benzyl Alcohol (Salonpas Lidocain Pls 4-10% Cr) 4 %-10 % Cream..g., 1 APPLIC TP UD PRN for PAIN-BREAKTHROUGH, (Reported) Entered as Reported by: GISELA COLLAZO on 09/14/21 1113 Methyl Salicylate/Menthol (Salonpas Patch) 10 %-3 % Adh..patch, 1 EACH TP UD PRN for PAIN-BREAKTHROUGH, (Reported) Entered as Reported by: GISELA COLLAZO on 09/14/21 1054 Metoprolol Succinate (Metoprolol Succinate) 25 Mg Tab.er.24h, 25 MG PO DAILY, (Reported) Entered as Reported by: ISRAEL TERRY on 09/30/20 1159 Nystatin (Nyamyc) 15 Gm Powder, 1 APPLIC TOP QID PRN for RASH, (Reported) Entered as Reported by: GISELA COLLAZO on 04/01/20 1343 Nystatin (Nystatin) 100,000 Unit/Ml Oral.susp, 2 ML PO BID, (Reported) Entered as Reported by: GISELA COLLAZO on 09/14/21 1054 Ondansetron (Ondansetron Odt) 4 Mg Tab.rapdis, 4 MG PO TID PRN for NAUSEA/ VOMITING-1ST LINE, (Reported) Entered as Reported by: ISRAEL TERRY on 09/30/20 1212 Oxycodone HCl/Acetaminophen (Oxycodone-Acetaminophen 10-325) 10 Mg-325 Mg Tablet, 1 EACH PO QID PRN for PAIN-MODERATE, (Reported) Entered as Reported by: GISELA COLLAZO on 09/14/21 1054 Pantoprazole Sodium (Pantoprazole Sodium) 20 Mg Tablet.dr, 20 MG PO DAILY, (Reported) Entered as Reported by: GISELA COLLAZO on 04/01/20 1343 Potassium Chloride (Potassium Chloride) 20 Meq Tablet.er, 20 MEQ PO DAILY, (Reported) Entered as Reported by: ISRAEL TERRY on 09/30/20 1159 Ropinirole HCl (Ropinirole HCl) 1 Mg Tablet, 1.5 MG PO TID, (Reported) Entered as Reported by: TEDDY BAXTER on 01/14/16 1025 Rosuvastatin Calcium (Rosuvastatin Calcium) 5 Mg Tablet, 5 MG PO 2000, (Reported) Entered as Reported by: GISELA COLLAZO on 09/14/21 1054 Sodium Chloride/Aloe Vera ([place] Saline Nasal Gel) 14.1 Gm Gel..gram., 1 APPLIC NSEACH HS, (Reported) Entered as Reported by: GISELA COLLAZO on 04/01/20 1343 Sucralfate (Sucralfate) 1 Gram Tablet, 1 GM PO ACHS, (Reported) Entered as Reported by: GISELA COLLAZO on 09/14/21 1054 Tolnaftate (Tinactin) 1 % Powder, 1 APPLIC TP DAILY PRN for RASH, (Reported) Entered as Reported by: GISELA COLLAZO on 09/14/21 1054 Zafirlukast (Zafirlukast) 20 Mg Tablet, 20 MG PO BID, (Reported) Entered as Reported by: ISRAEL TERRY on 09/30/20 1159 [ Nasal [place]] SPRAY, 2 SPRAYS NSEACH TID, (Reported) Entered as Reported by: GISELA COLLAZO on 09/14/21 1100 Review of Systems Review of Systems Constitutional: no symptoms reported Eyes: No Symptoms Reported Ears, Nose, Mouth, Throat: no symptoms reported Respiratory: no symptoms reported Cardiovascular: no symptoms reported Gastrointestinal: no symptoms reported Genitourinary: no symptoms reported Musculoskeletal: no symptoms reported Psychiatric/Neurological: No Symptoms Reported Past Rixtknh-Iuvuwj-Mfprwj Hx Patient Social History Tobacco Use?: No Use of E-Cig and/or Vaping dev: No Substance use?: No Alcohol Use?: No Pt feels they are or have been: No Immunizations Up To Date Tetanus Booster (TDap): Unknown PED Vaccines UTD: Yes Influenza Vaccine Up-to-Date: No; Not Current First/Initial COVID19 Vaccinat: 05/29/20 Second COVID19 Vaccination Bimal: 06/18/20 Third COVID19 Vaccination Date: 02/2021 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, 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 Sexually Transmitted Disease: No HIV/AIDS: No Genitourinary: Yes UTI-Chronic Gastrointestinal: Yes Colitis, Gastroesophageal Reflux, Diverticulosis, Polyps, Irritable Bowel Musculoskeletal: Yes (CHRONIC BACK PAIN AND SCIATICA; CHRONIC NECK AND SHOULDER PAIN; ) Arthritis, Fibromyalgia, Chronic Back Pain Endocrine: Yes (OBESITY) Diabetes, Insulin dep, Hypothyroidsim HEENT: Yes Tonsilitis Loss of Vision: Denies Hearing Impairment: Denies Cancer: No Psychosocial: Yes Anxiety, Depression Integumentary: No Blood Disorders: Yes (CHRONIC ANEMIA) Adverse Reaction/Blood Tranf: No Family Medical History Cardiovascular disease 19 FATHER 19 MOTHER Colon cancer Diabetes mellitus 19 MOTHER Irritable bowel syndrome G8 BROTHER Myocardial infarction 19 FATHER 19 MOTHER TIAs 19 MOTHER Heart Disease, CAD Over 55 Years Old, CVA, Diabetes, GI Disease, Hypertension, Stroke, Vascular Disease Physical Exam Vital Signs Vital Signs - First Documented 01/09/22 17:45 Temp 36.7 Pulse 81 Resp 16 B/P (MAP) 130/70 (90) Pulse Ox 100 O2 Delivery Nasal Cannula O2 Flow Rate 2.00 Capillary Refill : Height, Weight, BMI Height: 5'5.00" Weight: 225lbs. 0.0oz. 102.831664gh; 42.31 BMI Method:Estimated General Appearance: WD/WN, no apparent distress HEENT: PERRL/EOMI, normal ENT inspection, TMs normal Neck: non-tender Progress/Results/Core Measures Results/Orders My Orders Orders - JOSH CORTEZ Ct Head/Cervical Spine Wo (01/09/22 18:45) Ct Lumbar Spine Wo (01/09/22 18:45) Oxycodone/Apap 5/325mg Tablet (Percocet (01/09/22 20:00) Medications Given in ED Current Medications Medications Dose Ordered Sig/Jorge Route Start Time Stop Time Status Last Admin Dose Admin Oxycodone/ Acetaminophen 1 tab ONCE ONCE PO 01/09/22 20:00 01/09/22 20:01 DC 01/09/22 19:52 1 TAB Vital Signs/I&O 01/09/22 17:45 Temp 36.7 Pulse 81 Resp 16 B/P (MAP) 130/70 (90) Pulse Ox 100 O2 Delivery Nasal Cannula O2 Flow Rate 2.00 Blood Pressure Mean: 90 Departure Communication (Admissions) Patient is afebrile, nontoxic and in no distress. CT scan unremarkable at this time. Patient will follow-up with primary care. No evidence or suspicion of hip fracture, pelvic fracture, compression fracture of the vertebra or other emergent conditions including intracranial hemorrhage. Impression Primary Impression: Closed head injury Disposition: HOME, SELF-CARE Condition: Stable Departure-Patient Inst. Decision time for Depature: 20:38 Referrals: TERRI LIU MD (PCP/Family) Primary Care Physician Patient Instructions: Minor Head Injury JOSH CORTEZ Jan 09, 2022 18:48
[2022-01-09] MEDS ORDERED: oxyCODONE/APAP 5/325MG (PERCOCET 5) TABLET PO ONE (20:00)
--- NOTE | 2022-01-09 20:16 | Diagnostic Imaging Report ---
PROCEDURE: CT lumbar spine without contrast. TECHNIQUE: Multiple contiguous axial images were obtained through the lumbar spine without the use of intravenous contrast. Sagittal and coronal reformations were then performed. Auto Exposure Controls were utilized during the CT exam to meet ALARA standards for radiation dose reduction. INDICATION: 71-year-old female, fall with back and neck pain. Landed on buttocks. CORRELATION STUDY: 07/29/2021. FINDINGS: Lumbar spinal alignment is relatively anatomic. Lumbar vertebral body heights are maintained. No acute fracture or traumatic fixation. Disc spaces demonstrate minimal areas of narrowing but overall appear stable. Endplate osteophyte formation is present. Hypertrophic spurring of the lower lumbar spine with facet arthropathy is present. There appears to be at least moderate central canal stenosis at L4-L5 and at least moderate left L4-L5 foraminal narrowing. Visualized sacrum and sacroiliac joints are maintained and unremarkable. No displaced sacral fracture. Paraspinal soft tissues are unremarkable. Mild calcification of the abdominal aorta, nonaneurysmal. IMPRESSION: Negative for acute lumbar spine fracture. Dictated by: Dictated on workstation # [id number]
--- NOTE | 2022-01-09 20:24 | Diagnostic Imaging Report ---
PROCEDURE: CT head and CT cervical spine without contrast. TECHNIQUE: Multiple contiguous axial images were obtained through the brain and cervical spine without the use of intravenous contrast. Sagittal and coronal reformations through the cervical spine were then performed. Auto Exposure Controls were utilized during the CT exam to meet ALARA standards for radiation dose reduction. INDICATION: 71-year-old female, fall with back and neck pain. Fell on buttocks. CORRELATION STUDY: 07/29/2021. FINDINGS: CT HEAD: Generalized atrophic changes with prominence of the ventricles and sulci. Small lipomas along the interhemispheric falx. Scattered areas of decreased attenuation likely owing to chronic small vessel ischemic disease. Faint basal ganglia calcification. No intracranial hemorrhage. No appreciable midline shift or mass effect. Bony calvarium intact. Rightward nasal septal deviation. CT CERVICAL SPINE: Significant motion artifact. Given significant limitations, no definite evidence for acute fracture or traumatic subluxation. There is rather large hypertrophic flowing osteophytes of the cervical spine essentially extending from approximately C2 through the T2 level. Areas of interruption anteriorly at C2-C3 and C4-C5 are unchanged. Posterior elements are intact and in normal alignment. Odontoid is intact. Paraspinal soft tissues are unremarkable. Visualized lung apices are unremarkable. IMPRESSION: CT HEAD: 1. Negative for acute traumatic intracranial abnormality. CT CERVICAL SPINE: 1. Limitations of cervical spine due to significant motion artifact. No definite evidence for acute fracture or traumatic subluxation. 2. Rather extensive bulky free flowing osteophytes through the length of the cervical spine may be reflective of underlying DISH. Dictated by: Dictated on workstation # [id number]
[2022-01-09 20:52] VITALS: BP 123/73
== END 2022-01-09 20:55 | disposition home or self-care (01) ==
LOC: EDUNIT# 17:41 → ER 17:44
DX: S09.90XA Unspecified injury of head, initial encounter (principal); J44.9 Chronic obstructive pulmonary disease, unspecified; I48.91 Unspecified atrial fibrillation; E66.9 Obesity, unspecified; E11.9 Type 2 diabetes mellitus without complications; Z99.81 Dependence on supplemental oxygen; Z68.41 Body mass index [BMI] 40.0-44.9, adult; Z79.4 Long term (current) use of insulin; Z79.01 Long term (current) use of anticoagulants; W01.198A Fall on same level from slipping, tripping and stumbling with subsequent striking against other object, initial encounter
CPT/HCPCS: 70450; 72125; 72131

== ENCOUNTER 2022-01-31 05:37 | Outpatient (CLI) | payer MEDICARE ==
[~2022-01-31] VITALS: Ht 157.5 cm; Wt 101.8 kg
[~2022-01-31 05:37] MED LIST changes: +LEVO-55 PO; -LEVO500T81 PO
== END 2022-01-31 12:45 | disposition home or self-care (01) ==
LOC: PREOP 05:37
PROVIDERS: ATTEND Specialist
DX: Z01.818 Encounter for other preprocedural examination (principal)

== ENCOUNTER 2022-02-04 08:46 | Day surgery (SDC) | payer MEDICARE ==
[~2022-02-04] VITALS: Ht 157.8 cm; Wt 101.8 kg
[2022-02-04 09:15] VITALS: BP 125/65
[2022-02-04] MEDS: PHENYLEPHRINE 10% OPHTH (NEO-SYN) 5 ML BTL OU PRN ×3 (09:23→09:36)
[2022-02-04] MEDS: TETRACAINE 0.5% OPHTH SOLN 4 ML BTL (SINGLE DOSE ONLY) OU PRN ×3 (09:23→09:36)
[2022-02-04] MEDS: TROPICAMIDE 1% OPH SOLN (MYDRIACYL) 15 ML BTL OU PRN ×3 (09:23→09:36)
--- NOTE | 2022-02-04 10:17 | Ophthalmologist Pre-Op Note ---
Pre-Operative Progress Note H&P Reviewed The H&P was reviewed, patient examined and no changes noted. Date H&P Reviewed: Feb 04, 2022 Time H&P Reviewed: 09:55 Pre-Op Dx Secondary Cataract, Bilateral Eyes PRECIOUS MURRIETA MD Feb 04, 2022 10:17
--- NOTE | 2022-02-04 10:18 | Ophthalmology Operative Report ---
YAG Capsulotomy PREOPERATIVE DIAGNOSIS: Secondary Cataract Bilateral POSTOPERATIVE DIAGNOSIS: Secondary Cataract Bilateral PROCEDURE: YAG Capsulotomy, Bilateral SURGEON: Hector Murrieta ANESTHESIA: Topical anesthesia COMPLICATIONS: None ESTIMATED BLOOD LOSS: Minimal DESCRIPTION OF PROCEDURE: After proper informed consent was obtained, the patient's, a 71 female , received one drop of Tropicamide and one drop of Tetracaine in each eye. The patient was then placed at the YAG laser and using a power of [ 3.8] millijoules and bursts [ 15] right eye and [ 16] left eye were used to fashion a central capsulotomy. The patient tolerated the procedure well without complications. HECTOR MURRIETA MD Feb 04, 2022 10:18
== END 2022-02-04 09:45 | disposition home or self-care (01) ==
LOC: SDC 08:46
PROVIDERS: ATTEND Specialist
DX: E11.36 Type 2 diabetes mellitus with diabetic cataract (principal); H26.40 Unspecified secondary cataract; Z79.01 Long term (current) use of anticoagulants

== ENCOUNTER 2022-06-04 13:04 | Emergency (ER) | payer MEDICARE ==
[~2022-06-04 13:04] MED LIST changes: +ALBU8.5H6 INH; +COLE625T30 PO; -COLE625T9 PO; -RT-ALBUINH INH
--- NOTE | 2022-06-04 13:39 | Diagnostic Imaging Report ---
EXAMINATION: CT head without contrast. TECHNIQUE: Multiple contiguous axial images were obtained through the brain without the use of intravenous contrast. All CT scans use one or more of the following dose optimizing techniques: automated exposure control, MA and/or KvP adjustment based on patient size and exam type or iterative reconstruction. HISTORY: Fall. Head pain. COMPARISON: 01/09/2022. FINDINGS: No large acute territorial ischemia, mass, or hemorrhage. No midline shift or mass effect. The ventricles, cortical sulci, and basilar cisterns are patent and unremarkable. The orbits are normal. Paranasal sinuses are normal. Mastoid air cells are clear. No soft tissue abnormality is seen. No osseus lesions or fractures are seen. IMPRESSION: 1. No large acute territorial ischemia, mass, or hemorrhage. Dictated by: Dictated on workstation # [id number]
--- NOTE | 2022-06-04 13:45 | Diagnostic Imaging Report ---
PROCEDURE: CT lumbar spine without contrast. TECHNIQUE: Multiple contiguous axial images were obtained through the lumbar spine without the use of intravenous contrast. Sagittal and coronal reformations were then performed. Auto Exposure Controls were utilized during the CT exam to meet ALARA standards for radiation dose reduction. INDICATION: Fall. Low back pain. COMPARISON: 01/09/2022. FINDINGS: Acute fractures are seen involving the right transverse processes of L1-L4. Otherwise, no acute fracture or dislocation in the lumbar spine. Vertebral body heights are maintained. No suspicious focal osseous lesions. No evidence of acute spinal canal stenosis. No high density material is seen within spinal canal. The paraspinal soft tissues are unremarkable. IMPRESSION: 1. Acute fractures involving the right transverse processes from L1 to L4. 2. No fractures involving the vertebral bodies. No height loss. Dictated by: Dictated on workstation # [id number]
--- NOTE | 2022-06-04 13:58 | Diagnostic Imaging Report ---
INDICATION: Right hip and back pain, post fall TECHNIQUE: AP pelvis 1:49 PM CORRELATION STUDY: 07/29/2021 FINDINGS: The pelvis demonstrates no evidence for acute fracture. The pectineal lines and obturator rings are maintained. Pubic symphysis and SI joints are unremarkable. Mild-moderately advanced degenerative changes with joint space narrowing both hips. IMPRESSION: Negative for acute fracture of the pelvis. Dictated by: Dictated on workstation # [id number]
--- NOTE | 2022-06-04 14:28 | ED Fall/Injury ---
General Chief Complaint: Trauma-Non Activation Stated Complaint: FALL Nursing Triage Note: PT TO ED PER EMS WITH C/O FALL AT HOME ([facility]) PT STATES LOW BLOOD SUGAR BEFORE FALL, IS C/O RIGHT HIP/ BACK PAIN Source: patient, EMS Exam Limitations: no limitations History of Present Illness Date Seen by Provider: Jun 04, 2022 Time Seen by Provider: 13:24 Initial Comments 71-year-old female presents the emergency department today after she fell, more sliding down her bed when she got lightheaded. She states this happens when her blood sugars get low and she was actually getting up to eat because she felt her blood sugar was doing well. She denies hitting her head or losing consci ousness. She is on blood thinning medications. The pain in her low mid low back, hip area. No other injuries. No lower extremity weakness numbness or tingling, saddle anesthesia. No loss of bowel or bladder control. Allergies and Home Medications Allergies Coded Allergies: Penicillins (Verified Allergy, Severe, SWELLING, HIVES, THROAT SWELLED, 01/21/16) PATIENT HAS RECEIVED CEFEPIME WITHOUT ISSUE Sulfa (Sulfonamide Antibiotics) (Verified Allergy, Severe, TONGUE SWELLED, 01/21/16) Tetanus & Diphtheria Tox,Adult (Verified Allergy, Severe, SWELLING OF THROAT, 01/21/16) codeine (Verified Allergy, Unknown, HAS RECEIVED LORTAB IN THE PAST, 01/21/16) egg (Unverified Allergy, Unknown, 06/29/16) FROM UNCODED ALLERGIES Patient Home Medication List Home Medication List Reviewed: Yes Acetaminophen (Tylenol) 325 Mg Capsule, 325-650 MG PO Q6H PRN for PAIN-MILD (1- 4) OR TEMPATURE, (Reported) Entered as Reported by: GISELA COLLAZO on 04/01/20 1343 Albuterol Sulfate (Albuterol Sulfate) 5 Mg/Ml Solution, 5 MG IH Q4H PRN for SHORTNESS OF BREATH, (Reported) Entered as Reported by: GISELA COLLAZO on 09/14/21 1100 Alendronate Sodium (Alendronate Sodium) 70 Mg Tablet, 70 MG PO WED, (Reported) Entered as Reported by: GISELA COLLAZO on 09/14/21 1054 Allopurinol (Allopurinol) 100 Mg Tablet, 100 MG PO DAILY, (Reported) Entered as Reported by: GISELA COLLAZO on 04/01/20 1343 Bvmaf-P-Xanoatwwnmtsz (Beano) 400 Unit Tablet, 400 UNIT PO AC, (Reported) Entered as Reported by: GISELA COLLAZO on 09/14/21 1054 Alprazolam (Alprazolam) 0.5 Mg Tablet, 0.5 MG PO BID PRN for ANXIETY, (Reported) Entered as Reported by: TEDDY BAXTER on 01/14/16 1025 Amiodarone HCl (Amiodarone HCl) 200 Mg Tablet, 100 MG PO DAILY, (Reported) Entered as Reported by: ISRAEL TERRY on 09/30/20 1159 Apixaban (Eliquis) 5 Mg Tablet, 5 MG PO BID, (Reported) Entered as Reported by: TEDDY BAXTER on 08/14/15 1519 Azelastine HCl (Azelastine HCl) 137 Mcg/0.137 Ml [place].pump, 1 SPRAY NSEACH TID, (Reported) Entered as Reported by: GISELA COLLAZO on 04/01/20 1343 Benzonatate (Tessalon Perles) 100 Mg Capsule, 200 MG PO TID PRN for COUGH, (Reported) Entered as Reported by: GISELA COLLAZO on 09/14/21 1054 Bisacodyl (Dulcolax) 10 Mg Supp.rect, 10 MG RC DAILY PRN for CONSTIPATION-4TH LINE, (Reported) Entered as Reported by: GISELA COLLAZO on 09/14/21 1054 Brexpiprazole (Rexulti) 0.5 Mg Tablet, 0.5 MG PO 2000, (Reported) Entered as Reported by: JACKELYN SOTELO on 03/19/21 1534 Budesonide/Formoterol Fumarate (Symbicort 160-4.5 Mcg Inhaler) 160 Mcg-4.5 Mcg/Actuation Hfa.aer.ad, 2 PUFF INH BID, (Reported) Entered as Reported by: GISELA COLLAZO on 09/14/21 1054 Bupropion HCl (Bupropion Xl) 300 Mg Tab.er.24h, 300 MG PO DAILY, (Reported) Entered as Reported by: GISELA COLLAZO on 04/01/20 1343 Calcium Carbonate (Calcium) 500 Mg Tablet, 1,000 MG PO DAILY, (Reported) Entered as Reported by: GISELA COLLAZO on 04/01/20 1343 Carboxymethylcellulose Sodium (Refresh Liquigel) 15 Ml Drp.lq.gel, 1 DROP OU DAILY PRN for DRY EYES, (Reported) Entered as Reported by: ISRAEL TERRY on 09/30/20 1159 Cholecalciferol (Vitamin D3) (Vitamin D3) 125 Mcg Tablet, 125 MCG PO DAILY, (Reported) Entered as Reported by: GISELA COLLAZO on 04/01/20 1343 Colestipol HCl (Colestipol HCl) 1 Gm Tablet, 1 GM PO BID, (Reported) Entered as Reported by: TEDDY BAXTER on 12/26/14 0914 Cyanocobalamin (Cyanocobalamin Injection) 1,000 Mcg/Ml Inj, 1,000 MCG IM MONTHLY, (Reported) Entered as Reported by: ISRAEL TERRY on 09/30/20 1212 Cyclobenzaprine HCl (Cyclobenzaprine HCl) 10 Mg Tablet, 10 MG PO Q4H PRN for MUSCLE SPASMS, (Reported) Entered as Reported by: GISELA COLLAZO on 09/14/21 1054 Diclofenac Sodium (Diclofenac Sodium) 1 % Gel..gram., 1 APPLIC TOP TID, (Reported) Entered as Reported by: GISELA COLLAZO on 09/14/21 1054 Diclofenac Sodium (Diclofenac Sodium) 1 % Gel..gram., 1 APPLIC TP BID, (Reported) Entered as Reported by: GISELA COLLAZO on 09/14/21 1102 Docusate Sodium (Colace) 100 Mg Capsule, 100 MG PO DAILY, (Reported) Entered as Reported by: GISELA COLLAZO on 04/01/20 1343 Famotidine (Famotidine) 40 Mg Tablet, 40 MG PO 1999, (Reported) Entered as Reported by: GISELA COLLAZO on 04/01/20 1343 Ferrous Sulfate (Ferrous Sulfate) 325 Mg Tablet, 325 MG PO DAILY, (Reported) Entered as Reported by: TEDDY BAXTER on 07/30/18 0959 Fluticasone Propionate (Fluticasone Propionate) 16 Gm [place].susp, 1 SPRAY NSEACH BID, (Reported) Entered as Reported by: GISELA COLLAZO on 04/01/20 1343 Furosemide (Furosemide) 40 Mg Tablet, 40 MG PO DAILY, (Reported) Entered as Reported by: ISRAEL TERRY on 09/30/20 1159 Gabapentin (Neurontin) 300 Mg Capsule, 900 MG PO TID, (Reported) Entered as Reported by: GISELA COLLAZO on 04/01/20 1343 Guaifenesin (Mucinex) 600 Mg Tab.er.12h, 600 MG PO BID PRN for SINUS DRAINAGE, (Reported) Entered as Reported by: ISRAEL TERRY on 09/30/20 1159 Guaifenesin (Robafen) 100 Mg/5 Ml Liquid, 10 ML PO Q4H PRN for COUGH, (Reported) Entered as Reported by: GISELA COLLAZO on 09/14/21 1054 Hydrocodone Bit/Acetaminophen (HYDROcodone/APAP 5 MG/325 MG TAB) 1 Tab Tab, 1 TAB PO Q6H Prescribed by: MONALISA CAMARENA MD on 06/04/22 1505 Hydrocortisone (Hydrocortisone) 1 % Cream..g., 1 APPLIC RC Q48H PRN for HEMMORRHOID DISCOMFORT, (Reported) Entered as Reported by: GISELA COLLAZO on 09/14/21 1054 Hydrocortisone Acetate (Hydrocortisone Acetate) 25 Mg Supp.rect, 25 MG RC DAILY PRN for HEMMORRHOID DISCOMFORT, (Reported) Entered as Reported by: GISELA COLLAZO on 09/14/21 1054 Insulin Glargine,Hum.rec.anlog (Jerry Metzger) 300 Unit/1 Ml Insuln.pen, 30 UNIT SQ HS, (Reported) Entered as Reported by: TEDDY BAXTER on 07/30/18 0959 Insulin Lispro (Insulin Lispro Kwikpen U-100) 100 Unit/1 Ml Insuln.pen, 8 UNITS SC TIDWM, (Reported) Entered as Reported by: GISELA COLLAZO on 04/01/20 1343 Insulin Lispro (Insulin Lispro Kwikpen U-100) 100 Unit/Ml Insuln.pen, UNIT SQ TIDWM, (Reported) Entered as Reported by: GISELA COLLAZO on 09/14/21 1054 Levalbuterol HCl (Xopenex) 1.25 Mg/3 Ml Vial.neb, 1.25 MG NEB Q6H PRN for SHORTNESS OF BREATH, (Reported) Entered as Reported by: TEDDY BAXTER on 07/30/18 0959 Levocetirizine Dihydrochloride (Xyzal) 5 Mg Tablet, 5 MG PO DAILY, (Reported) Entered as Reported by: ISRAEL TERRY on 09/30/20 1159 Levothyroxine Sodium (Synthroid) 25 Mcg Tablet, 50 MCG PO DAILY, (Reported) Entered as Reported by: ISRAEL TERRY on 09/30/20 1159 Lidocaine HCl/Benzyl Alcohol (Salonpas Lidocain Pls 4-10% Cr) 4 %-10 % Cream..g., 1 APPLIC TP UD PRN for PAIN-BREAKTHROUGH, (Reported) Entered as Reported by: GISELA COLLAZO on 09/14/21 1113 Methyl Salicylate/Menthol (Salonpas Patch) 10 %-3 % Adh..patch, 1 EACH TP UD PRN for PAIN-BREAKTHROUGH, (Reported) Entered as Reported by: GISELA COLLAZO on 09/14/21 1054 Metoprolol Succinate (Metoprolol Succinate) 25 Mg Tab.er.24h, 25 MG PO DAILY, (Reported) Entered as Reported by: ISRAEL TERRY on 09/30/20 1159 Nystatin (Nyamyc) 15 Gm Powder, 1 APPLIC TOP QID PRN for RASH, (Reported) Entered as Reported by: GISELA COLLAZO on 04/01/20 1343 Nystatin (Nystatin) 100,000 Unit/Ml Oral.susp, 2 ML PO BID, (Reported) Entered as Reported by: GISELA COLLAZO on 09/14/21 1054 Ondansetron (Ondansetron Odt) 4 Mg Tab.rapdis, 4 MG PO TID PRN for NAUSEA/VO MITING-1ST LINE, (Reported) Entered as Reported by: ISRAEL TERRY on 09/30/20 1212 Oxycodone HCl/Acetaminophen (Oxycodone-Acetaminophen 10-325) 10 Mg-325 Mg Tablet, 1 EACH PO QID PRN for PAIN-MODERATE, (Reported) Entered as Reported by: GISELA COLLAZO on 09/14/21 1054 Pantoprazole Sodium (Pantoprazole Sodium) 20 Mg Tablet.dr, 20 MG PO DAILY, (Reported) Entered as Reported by: GISELA COLLAZO on 04/01/20 1343 Potassium Chloride (Potassium Chloride) 20 Meq Tablet.er, 20 MEQ PO DAILY, (Reported) Entered as Reported by: ISRAEL TERRY on 09/30/20 1159 Ropinirole HCl (Ropinirole HCl) 1 Mg Tablet, 1.5 MG PO TID, (Reported) Entered as Reported by: TEDDY BAXTER on 01/14/16 1025 Rosuvastatin Calcium (Rosuvastatin Calcium) 5 Mg Tablet, 5 MG PO 2000, (Reported) Entered as Reported by: GISELA COLLAZO on 09/14/21 1054 Sodium Chloride/Aloe Vera ([place] Saline Nasal Gel) 14.1 Gm Gel..gram., 1 APPLIC NSEACH HS, (Reported) Entered as Reported by: GISELA COLLAZO on 04/01/20 1343 Sucralfate (Sucralfate) 1 Gram Tablet, 1 GM PO ACHS, (Reported) Entered as Reported by: GISELA COLLAZO on 09/14/21 1054 Tolnaftate (Tinactin) 1 % Powder, 1 APPLIC TP DAILY PRN for RASH, (Reported) Entered as Reported by: GISELA COLLAZO on 09/14/21 1054 Zafirlukast (Zafirlukast) 20 Mg Tablet, 20 MG PO BID, (Reported) Entered as Reported by: ISRAEL TERRY on 09/30/20 1159 [ Nasal [place]] SPRAY, 2 SPRAYS NSEACH TID, (Reported) Entered as Reported by: GISELA COLLAZO on 09/14/21 1100 Review of Systems Review of Systems Constitutional: no symptoms reported Eyes: No Symptoms Reported Ears, Nose, Mouth, Throat: no symptoms reported Respiratory: no symptoms reported Cardiovascular: no symptoms reported Gastrointestinal: no symptoms reported Genitourinary: no symptoms reported Musculoskeletal: back pain Skin: no symptoms reported Psychiatric/Neurological: No Symptoms Reported Past Xhjchbg-Qxszcr-Nmadjo Hx Patient Social History Tobacco Use?: No Substance use?: No Alcohol Use?: No Immunizations Up To Date Tetanus Booster (TDap): Unknown PED Vaccines UTD: Yes Influenza Vaccine Up-to-Date: No; Not Current First/Initial COVID19 Vaccinat: 05/29/20 Second COVID19 Vaccination Bimal: 06/18/20 Third COVID19 Vaccination Date: 10/18/21 Seasonal Allergies Seasonal Allergies: Yes Past Medical History Surgery/Hospitalization HX: gallbladder, appendix, heart ablation, tonsils, both knees scoped, c section HTN, DM Surgeries: Yes (KNEE SCOPES X3 - D&C'S; CARDIAC ABLATION FOR A. 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, 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 Sexually Transmitted Disease: No HIV/AIDS: No Genitourinary: Yes UTI-Chronic Gastrointestinal: Yes Colitis, Gastroesophageal Reflux, Diverticulosis, Polyps, Irritable Bowel Musculoskeletal: Yes (CHRONIC BACK PAIN AND SCIATICA; CHRONIC NECK AND SHOULDER PAIN; ) Arthritis, Fibromyalgia, Chronic Back Pain Endocrine: Yes (OBESITY) Diabetes, Insulin dep, Hypothyroidsim HEENT: Yes Tonsilitis Loss of Vision: Denies Hearing Impairment: Denies Cancer: No Psychosocial: Yes Anxiety, Depression Integumentary: No Blood Disorders: Yes (CHRONIC ANEMIA) Adverse Reaction/Blood Tranf: No Family Medical History Cardiovascular disease 19 FATHER 19 MOTHER Colon cancer Diabetes mellitus 19 MOTHER Irritable bowel syndrome G8 BROTHER Myocardial infarction 19 FATHER 19 MOTHER TIAs 19 MOTHER Heart Disease, CAD Over 55 Years Old, CVA, Diabetes, GI Disease, Hypertension, Stroke, Vascular Disease Physical Exam Vital Signs Vital Signs - First Documented 06/04/22 13:06 Temp 35.4 Pulse 74 Resp 18 B/P (MAP) 116/65 (82) Pulse Ox 96 Capillary Refill : Height, Weight, BMI Height: 5'5.00" Weight: 225lbs. 0.0oz. [id number]; 42.31 BMI Method:Estimated General Appearance: WD/WN, no apparent distress HEENT: normal ENT inspection, pharynx normal Neck: non-tender, supple Cardiovascular: regular rate, rhythm, no murmur Respiratory: chest non-tender, lungs clear, normal breath sounds, no respiratory distress, no accessory muscle use Gastrointestinal: normal bowel sounds, non tender, soft, no organomegaly Back: normal inspection, vertebral tenderness (Tenderness palpation lumbar region diffusely on the right side. No step-offs or deformity. 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, no motor/sensory deficits, alert, normal mood/affect, oriented x 3 Skin: normal color, warm/dry Lymphatic: no adenopathy Progress/Results/Core Measures Results/Orders Lab Results Laboratory Tests Test 06/04/22 13:14 06/04/22 15:24 Range/Units Glucometer 124 H 82 70-110 MG/DL My Orders Orders - MONALISA CAMARENA DO Ct Lumbar Spine Wo (06/04/22 13:14) Ct Head Wo (06/04/22 13:14) Pelvis 1 To 2 Views (06/04/22 13:14) Hydrocodone/Apap 5/325 Tablet (Lortab 5 (06/04/22 15:15) Medications Given in ED Current Medications Medications Dose Ordered Sig/Jorge Route Start Time Stop Time Status Last Admin Dose Admin Acetaminophen/ Hydrocodone Bitart 1 ea ONCE ONCE PO 06/04/22 15:15 06/04/22 15:16 DC 06/04/22 15:12 1 EA Vital Signs/I&O 06/04/22 06/04/22 06/04/22 13:06 15:12 15:28 Temp 35.4 35.4 35.4 Pulse 74 78 Resp 18 18 B/P (MAP) 116/65 (82) 131/75 Pulse Ox 96 96 Blood Pressure Mean: 82 FSBG Bedside Testing Finger Stick Blood Glucose: 124 Blood Glucose Action Taken: Notified RN Departure Communication (Admissions) [id number]: I spoke with patient about L1-L4 transverse process fractures. She called her son and I also discussed the findings with him. He is a recovery auditor here in town and states understanding. I advised that these are likely nonoperative based on my experience but I was going to talk with neurosurgery at [place] for further recommendations. They state understanding. 1500: SPoke with Bigg Buchanan [facility]. No operative management or bracing required in this are. Ambulate as tolerated with pain control. OK to f/u with local ortho per her. Patient is hemodynamically stable, neurologically intact. She has been ambulatory here and was ambulatory after the event at home. We will discharge her home with pain control, return precautions and close follow-up. No evidence for cord syndrome, impingement or spinal cord injury. No cauda equina syndrome. No other injuries. CT brain is negative, obtained as the patient is on blood thinning medicines. Impression Primary Impression: Multiple transverse process fractures Disposition: HOME, SELF-CARE Condition: Stable Departure-Patient Inst. Referrals: DAISY JOHNSON MD (PCP/Family) Primary Care Physician DARY COOPER MD Patient Instructions: Fracture (DC) Add. Discharge Instructions: Take pain medication as prescribed as needed. Increase your fluids and rest but certainly walk as tolerated and to perform necessary activities. Return to the emergency department immediately for any severe pain that is not controlled with the provided medications. Follow-up with your primary doctor in the next couple days for further evaluation and treatment. Call Dr. Cooper to see if he will see you in follow-up. All discharge instructions reviewed with patient and/or family. Voiced understanding. Scripts Hydrocodone Bit/Acetaminophen (HYDROcodone/APAP 5 MG/325 MG TAB) 1 Tab Tab 1 TAB PO Q6H for Pain for 3 Days, #12 TAB Prov: MONALISA CAMARENA DO 06/04/22 MONALISA CAMARENA DO Jun 04, 2022 14:28
[2022-06-04] MEDS ORDERED: ACHD5005 PO (15:05)
[2022-06-04] MEDS ORDERED: HYDROcodone/APAP 5 MG/325 MG (LORTAB) TAB PO ONE (15:15)
[2022-06-04 15:28] VITALS: BP 131/75
== END 2022-06-04 15:28 | disposition home or self-care (01) ==
LOC: EDUNIT# 13:04 → ER 13:05
DX: S32.019A Unspecified fracture of first lumbar vertebra, initial encounter for closed fracture (principal); S32.029A Unspecified fracture of second lumbar vertebra, initial encounter for closed fracture; S32.039A Unspecified fracture of third lumbar vertebra, initial encounter for closed fracture; S32.049A Unspecified fracture of fourth lumbar vertebra, initial encounter for closed fracture; E11.9 Type 2 diabetes mellitus without complications; E66.9 Obesity, unspecified; Z79.4 Long term (current) use of insulin; Z68.41 Body mass index [BMI] 40.0-44.9, adult; W18.30XA Fall on same level, unspecified, initial encounter; Y92.003 Bedroom of unspecified non-institutional (private) residence as the place of occurrence of the external cause
CPT/HCPCS: 70450; 72131; 72170; 82947

== ENCOUNTER 2022-06-15 05:45 | Outpatient (CLI) | payer MEDICARE ==
[~2022-06-15] VITALS: Ht 157.5 cm; Wt 91.5 kg
[~2022-06-15 05:45] MED LIST changes: +ACHD5005 PO
== END 2022-06-21 13:12 | disposition home or self-care (01) ==
LOC: PREOP 05:45
PROVIDERS: ATTEND Orthopaedic Surgery
DX: Z01.818 Encounter for other preprocedural examination (principal)

== ENCOUNTER 2022-06-22 08:39 | Day surgery (SDC) | payer MEDICARE ==
--- NOTE | 2022-06-15 06:36 | HISTORY AND PHYSICAL ---
ADMISSION HISTORY AND PHYSICAL This will be for outpatient surgery on 06/22/2022 for left carpal tunnel release. INDICATIONS: The patient is a 71-year-old right-hand dominant female with complaints of left hand pain and paresthesias. She underwent an EMG nerve conduction study, which revealed evidence of carpal tunnel syndrome. She has tried splinting, activity modifications and rest without relief. Due to functional impairment, failure to improve with conservative measures, the patient elected to proceed with surgical intervention. REVIEW OF SYSTEMS: No recent chest pain, shortness of breath or dysuria. PAST MEDICAL HISTORY: Reflux, allergies, anxiety, depression, diabetes, hypertension, fibromyalgia, irritable bowel syndrome, sacroiliitis, sciatica, history of tachycardia, myalgias, myositis, asthma, Crum's palsy, coronary ablation, COPD, CVA, hypothyroidism, constipation and reflux. PAST SURGICAL HISTORY: Cholecystectomy, , right breast lumpectomy, left knee arthroscopy, right knee arthroscopy, appendectomy, coronary catheterization, right rotator cuff repair, tonsillectomy, hysterectomy, right carpal tunnel release. FAMILY HISTORY: Significant for stroke, hypertension, coronary artery disease, diabetes, pancreatic cancer. PRIMARY CARE PROVIDER: Dr. Motta. MEDICATIONS: Zofran, colestipol, Toprol, Advair, furosemide, Wellbutrin, alprazolam, Xyzal, Colace, insulin, famotidine, ropinirole, Eliquis, allopurinol, potassium, gabapentin, Rexulti, Dulcolax, vitamin B12, Voltaren, nystatin, Carafate, Flonase, iron, amiodarone, Xopenex, Synthroid, Protonix, Toujeo, Mucinex, Azelastine, Xanax, Trulicity. ALLERGIES: SULFA, PENICILLIN, TETANUS, CODEINE AND CEFDINIR. SOCIAL HISTORY: The patient denies alcohol and tobacco use. INDICATION: GENERAL: The patient is well-developed, well-nourished, no acute distress. HEENT: Normocephalic, atraumatic. Pupils are equal, round, reactive to light. Oropharynx is clear. NECK: Supple. No lymphadenopathy. LUNGS: Clear to auscultation bilaterally. HEART: Regular rate and rhythm. ABDOMEN: Soft, nontender, nondistended. EXTREMITIES: The left hand demonstrates decreased sensation in the median distribution with markedly positive Tinel's at the carpal tunnel with a positive Phalen's maneuver. She has thenar atrophy noted. IMPRESSION: Left carpal tunnel syndrome. PLAN: Left carpal tunnel release. The risks, benefits, options, complications, and recovery were discussed at length with the patient. She understands and wishes to proceed. Job ID: [id number] DocumentID: [id number] Dictated Date: 06/07/2022 12:40:34 Construction Grip Date: 06/07/2022 16:50:00 Dictated By: DARY HAYDNE MD
[2022-06-22] VITALS (8 sets, daily range): BP systolic 117–151; BP diastolic 61–88
[~2022-06-22] VITALS: Ht 157.5 cm; Wt 91.5 kg
[~2022-06-22 08:39] MED LIST changes: +HYDROcodone/APAP 7.5 MG/325 MG (LORTAB, LORCET PLUS) TABLET PO PRN
[2022-06-22] MEDS ORDERED: BUPIVACAINE 0.5% 30 ML (SENSORCAINE) VIAL ONE (09:11)
[2022-06-22] MEDS ORDERED: LIDOCAINE 1% INJ 20 ML VIAL ONE (09:11)
[2022-06-22] MEDS ORDERED: LACTATED RINGERS 1,000 ML IV PRN (09:15)
[2022-06-22] MEDS ORDERED: CLINDAMYCIN 600 MG/50 ML IVPB 50 ML IV ONE (09:15)
[2022-06-22] MEDS ORDERED: PROPOFOL INJECTION 50 ML IV ONE (09:53)
[2022-06-22] MEDS ORDERED: fentaNYL INJ 100 MCG/2 ML AMP ONE (09:53)
[2022-06-22] MEDS ORDERED: MIDAZOLAM 2 MG/2 ML (VERSED) VIAL ONE ×2 (09:53→10:03)
[2022-06-22] MEDS ORDERED: MIDAZOLAM 2 MG/2 ML (VERSED) VIAL IV ONE (10:00)
--- NOTE | 2022-06-22 10:57 | Progress Note-Pre Operative ---
Pre-Operative Progress Note Date of Available H&P: Jun 22, 2022 Date H&P Reviewed: Jun 07, 2022 Time H&P Reviewed: 07:11 Changes from last HP none Pre-Operative Diagnosis: left carpal tunnel sydrome DARY HAYDEN MD Jun 22, 2022 10:57
--- NOTE | 2022-06-22 10:59 | Progress Note-Post Operative ---
Post-Operative Progess Note Surgeon (s)/Automotive Exhaust Emissions Technician (s) Surgeon DARY HAYDEN MD Automotive Exhaust Emissions Technician: Shira Shelby Pre-Operative Diagnosis left carpal tunnel sydrome Post-Operative Diagnosis left carpal tunnel sydrome Procedure & Operative Findings Date of Procedure 06/22/22 Procedure Performed/Findings left carpal tunnel release Anesthesia Type MAC plus local Estimated Blood Loss Estimated blood loss (mL): minimal Specimens/Packing Specimens Removed none Packing: none DARY HAYDEN MD Jun 22, 2022 10:59
[2022-06-22] MEDS ORDERED: BUPIVACAINE 0.5% 30 ML (SENSORCAINE) VIAL INJ ONE (11:51)
[2022-06-22] MEDS ORDERED: LIDOCAINE 1% INJ 20 ML VIAL INJ ONE (11:53)
--- NOTE | 2022-06-22 13:11 | Anesthesia-General Post-Op ---
MAC Patient Condition Mental Status/LOC: Same as Preop Cardiovascular: Satisfactory Nausea/Vomiting: Absent Respiratory: Satisfactory Pain: Controlled Complications: Absent Post Op Complications Complications None Follow Up Care/Instructions Patient Instructions None needed. Anesthesiology Discharge Order Discharge Order Patient is doing well, no complaints, stable vital signs, no apparent adverse anesthesia problems. No complications reported per nursing. TONI AVILES CRNA Jun 22, 2022 13:11
--- NOTE | 2022-06-22 19:49 | OPERATIVE REPORT ---
DATE OF SERVICE: 06/22/2022 PREOPERATIVE DIAGNOSIS: Left carpal tunnel syndrome. POSTOPERATIVE DIAGNOSIS: Left carpal tunnel syndrome. PROCEDURES: Left open carpal tunnel release. SURGEON: Dr. Hayden. PROFESSIONAL SERVICES CONSULTANT: Ellis hSelby, who assisted throughout the procedure and closed the incision. ANESTHESIA: Monitored anesthesia care plus local by Dr. Richelle Lindsey CRNA. TOURNIQUET TIME: 1 minute at 250 mmHg. ESTIMATED BLOOD LOSS: Minimal. DRAINS: None. COMPLICATIONS: None. POSTOPERATIVE PLAN: Routine protocol. The patient was transferred to the recovery room awake and stable condition. STATEMENT OF MEDICAL NECESSITY: The patient is a 71-year-old right hand dominant female with complaints of left hand pain and paresthesias. She had EMG nerve conduction study evidence of carpal tunnel syndrome. Due to functional impairment and failure to improve with conservative measures, the patient elected to proceed with surgical intervention. DESCRIPTION OF PROCEDURE: After risks and benefits of the procedure were discussed and questions were answered, an informed consent was signed and placed on the chart. The operative site was confirmed in the preop holding area initialed by surgeon. The patient was then transported to the operating room and after adequate levels of monitored anesthesia care were obtained, a timeout was called, confirming the operative site. Under sterile conditions, incision site was infiltrated with a combination of plain lidocaine and plain Marcaine. The left upper extremity was prepped and draped in the usual sterile fashion with the arm elevated, tourniquet was inflated to 250 mmHg. A longitudinal incision was made in line with the radial border of the ring finger over the transverse carpal ligament. The underlying soft tissues were sharply dissected exposing the transverse carpal ligament, which was then opened by pushing through with the scalpel. The median nerve was identified and carefully protected throughout the procedure and intact at the conclusion of the procedure. Distally, transverse carpal ligament was confirmed fully released with a Rutledge and under direct visualization. Proximally, the transverse carpal ligament was spread above and below with dissection scissors and opened with a slightly open scissor edges while protecting the nerve. This was confirmed fully released with a Rutledge. The tourniquet was deflated. Pressure was used for hemostasis. Wound was closed with 4-0 nylon in a running alternating horizontal mattress fashion. A soft dressing and splint were applied and the patient was transferred to the recovery room awake and in stable condition. Job ID: [id number] DocumentID: [id number] Dictated Date: 06/22/2022 11:54:03 General Hardware Salesperson Date: 06/22/2022 19:47:00 Dictated By: DARY HAYDEN MD
== END 2022-06-22 13:20 | disposition home or self-care (01) ==
LOC: SDC 08:39
PROVIDERS: ATTEND Orthopaedic Surgery
DX: G56.02 Carpal tunnel syndrome, left upper limb (principal); E66.9 Obesity, unspecified; Z68.36 Body mass index [BMI] 36.0-36.9, adult; F32.A Depression, unspecified
CPT/HCPCS: 82947; 87081

== ENCOUNTER 2022-07-13 12:54 | Outpatient (RCR) | payer MEDICARE ==
[~2022-07-13 12:54] MED LIST changes: -HYDROcodone/APAP 7.5 MG/325 MG (LORTAB, LORCET PLUS) TABLET PO PRN
== END 2022-07-19 | disposition home or self-care (01) ==
PROVIDERS: ATTEND Registered Nurse
DX: M54.16 Radiculopathy, lumbar region (principal); I10 Essential (primary) hypertension; J45.909 Unspecified asthma, uncomplicated; E11.9 Type 2 diabetes mellitus without complications

== ENCOUNTER → 2022-07-18 | Outpatient (CLI) | payer MEDICARE ==
[~2022-07-18] MED LIST changes: +RT-ALBUTEROL SULF 2.5 MG/3 ML PRE-MIX VIAL INH ONE
== END ==
LOC: RT 10:01
PROVIDERS: ATTEND Nurse Practitioner Family
DX: J44.9 Chronic obstructive pulmonary disease, unspecified (principal)
CPT/HCPCS: 94060; 94726; 94729

== ENCOUNTER → 2022-07-18 | Outpatient (CLI) | payer MEDICARE ==
[~2022-07-18] MED LIST changes: -RT-ALBUTEROL SULF 2.5 MG/3 ML PRE-MIX VIAL INH ONE
== END ==
LOC: CARD 13:30
PROVIDERS: ATTEND Physician Assistant
DX: I11.9 Hypertensive heart disease without heart failure (principal)
CPT/HCPCS: 93306

== ENCOUNTER 2022-08-18 13:29 | Outpatient (RCR) | payer MEDICARE ==
[~2022-08-18 13:29] MED LIST changes: -INSU100I29 SC; -INSU100I29 SQ; +INSU100I30 SC; +INSU100I30 SQ
== END 2022-08-19 | disposition home or self-care (01) ==
PROVIDERS: ATTEND Registered Nurse
DX: M54.16 Radiculopathy, lumbar region (principal); I10 Essential (primary) hypertension; J45.909 Unspecified asthma, uncomplicated; E11.9 Type 2 diabetes mellitus without complications

== ENCOUNTER 2022-09-15 13:23 | Outpatient (RCR) | payer MEDICARE | END 2022-09-18 | disposition home or self-care (01) | PROVIDERS: ATTEND Registered Nurse | DX: M54.16 Radiculopathy, lumbar region (principal); I10 Essential (primary) hypertension; J45.909 Unspecified asthma, uncomplicated; E11.9 Type 2 diabetes mellitus without complications ==

== ENCOUNTER 2022-10-18 09:47 | Outpatient (RCR) | payer MEDICARE ==
[~2022-10-18 09:47] MED LIST changes: +ALBU5SOL IH; -ALBU5SOL6 IH
== END 2022-10-19 | disposition home or self-care (01) ==
PROVIDERS: ATTEND Registered Nurse
DX: M54.16 Radiculopathy, lumbar region (principal); I10 Essential (primary) hypertension; E11.9 Type 2 diabetes mellitus without complications; E03.9 Hypothyroidism, unspecified

== ENCOUNTER 2022-11-16 10:59 | Outpatient (RCR) | payer MEDICARE ==
[~2022-11-16 10:59] MED LIST changes: +POTA-330 PO; -POTA-51 PO
== END 2022-11-18 | disposition home or self-care (01) ==
PROVIDERS: ATTEND Registered Nurse
DX: M54.16 Radiculopathy, lumbar region (principal); I10 Essential (primary) hypertension; E11.9 Type 2 diabetes mellitus without complications; E03.9 Hypothyroidism, unspecified; J45.909 Unspecified asthma, uncomplicated

== ENCOUNTER 2022-12-09 11:01 | Outpatient (RCR) | payer MEDICARE ==
[~2022-12-09 11:01] MED LIST changes: +ZAFI20TA18 PO; -ZFR20T PO
== END 2022-12-19 | disposition home or self-care (01) ==
PROVIDERS: ATTEND Registered Nurse
DX: M54.16 Radiculopathy, lumbar region (principal)